=== PATIENT | female | born 1980 | race Caucasian/White ===

== ENCOUNTER 2024-03-13 14:27 | Emergency (ER) | payer BC, SELFPAY ==
[2024-03-13 14:30] VITALS: BP 165/92; PULSE 77; RESP 16; TEMP 36.6; O2SAT 100
[2024-03-13] MEDS: SODIUM CHLORIDE 0.9% IV 500 ML 999 ML IV CONT (15:45)
[2024-03-13] MEDS: diphenhydrAMINE HCl INJ 50 MG/ML VIAL 25 MG IV PUSH (15:45)
[2024-03-13] MEDS: HYDROmorphone HCL INJ (*CRX) 1 MG/ML SYR 0.5 MG IV PUSH ×2 (15:45→16:43)
[2024-03-13] MEDS: PROCHLORPERAZINE EDISYLATE 10 MG/2 ML VIAL IV PUSH (15:46)
[2024-03-13] MEDS: Please add drug allergy info to patient profile. 1 EACH XX (15:46)
--- NOTE | 2024-03-13 15:52 | ED_ITS ---
HPI - General Adult General Chief complaint: Headache Stated complaint: migraine Time Seen by Provider: 03/13/24 14:34 History of Present Illness HPI narrative: 43-year-old female presenting to the emergency department for evaluation for headache. Patient reports she does have a longstanding history of migraines. Patient also has history of liver transplant and kidney transplant x2. Patient states that her medications do tend to cause her to have a migraine. Patient reports her headache started yesterday. Patient states this is similar to her previous headaches. Patient does report associated nausea and vision changes Related Data Allergies Allergy/AdvReac Type Severity Reaction Status Date / Time No Known Allergies Allergy Verified 03/13/24 15:45 Review of Systems Review of Systems: All systems reviewed & are unremarkable except as noted in HPI and below Exam Narrative: APPEARANCE: Well appearing, no pain, no distress, well-nourished. HEAD: normocephalic, atraumatic. EYES: PERRLA/EOMI, conjunctivae clear. NOSE: Normal no drainage EARS:TMS clear with good light reflex. THROAT: Pharynx clear, no exudate. NECK: Supple. No adenopathy, no masses. RESPIRATORY: Airway patent, respirations nonlabored. Clear to auscultation bilaterally, no rales, rhonchi, wheezing. CARDIOVASCULAR: Regular rate and rhythm without murmurs rubs or gallops. ABDOMINAL: Soft, nontender, nondistended, normal bowel sounds MUSCULOSKELETAL: Moves all extremities. Strength/ROM intact, No edema, No calf tenderness. NEURO: Alert. Cranial nerves II through XII intact. Grossly intact SKIN: Warm, dry. Normal Color Course Vital Signs Vital signs: Vital Signs Temperature 97.8 F 03/13/24 14:30 Pulse Rate 77 03/13/24 14:30 Respiratory Rate 16 03/13/24 14:30 Blood Pressure 165/92 H 03/13/24 14:30 Pulse Oximetry 100 03/13/24 14:30 Oxygen Delivery Room Air 03/13/24 14:30 Temperature 97.8 F 03/13/24 14:30 Pulse Rate 75 03/13/24 17:11 Respiratory Rate 20 03/13/24 17:11 Blood Pressure 147/85 H 03/13/24 17:11 Pulse Oximetry 96 03/13/24 17:11 Oxygen Delivery Room Air 03/13/24 14:30 Medical Decision Making MDM Narrative Medical decision making narrative: 43-year-old female presenting to the emergency department for evaluation for migraine. Patient stated that the current migraine is similar to her baseline with no significant differences. Patient denies any falls or injuries, patient denies any fevers. Patient was treated with IV Reglan, IV Benadryl, IV fluids and IV Dilaudid, patient states she is unable to have Toradol due to her transplants. On re-evaluation patient did feel improved. Patient was encouraged close follow-up with her physicians. All questions concerns were addressed. Differential Diagnosis Differential Diagnosis: Migraine, headache, dehydration Vital Signs Vital Signs: Vital Signs Temperature 97.8 F 03/13/24 14:30 Pulse Rate 77 03/13/24 14:30 Respiratory Rate 16 03/13/24 14:30 Blood Pressure 165/92 H 03/13/24 14:30 Pulse Oximetry 100 03/13/24 14:30 Oxygen Delivery Room Air 03/13/24 14:30 Temperature 97.8 F 03/13/24 14:30 Pulse Rate 75 03/13/24 17:11 Respiratory Rate 20 03/13/24 17:11 Blood Pressure 147/85 H 03/13/24 17:11 Pulse Oximetry 96 03/13/24 17:11 Oxygen Delivery Room Air 03/13/24 14:30 Discharge Plan Discharge Clinical Impression: Headache Patient Disposition: Home, Self-Care Condition: Stable Instructions: Antibiotic Form, Migraine Headache (ED) Additional Instructions: Have close follow-up with your primary care physician. If you have any worsening symptoms and please call or return to the emergency department. Patient Language: [place] Follow-up/Referrals: UNKNOWN,DOCTOR [Primary Care Provider] -
[2024-03-13 17:11] VITALS: BP 147/85; PULSE 75; RESP 20; O2SAT 96
--- OUTSIDE RECORDS SUMMARY | 2024-03-20 11:32 | XMS_ITS | Continuity of Care Document ---
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 Role Phone Hermes Ramirez Primary Care Physician Encounter ONOFREEver [id number] Date(s): 03/19/21 - 03/19/[address] [id number] Encounter Diagnosis Migraine headache(Discharge Diagnosis) - 03/19/21 Discharge Disposition: Home or Self Care Attending Physician: Zack Byrnes MD Admitting Physician: Zack Byrnes MD Allergies, Adverse Reactions, Alerts Substance Reaction Severity Status gentamicin Moderate Active erythromycin Medication interaction Activ e aspirin Medication interaction Activ e Toradol Kidney failure as a complication of care Active NSAIDs Severe Active Assessment and Plan Future Appointments Immunizations Given and Recorded Vaccine Date Status Refusal Reason hepatitis B adult vaccine 11/10/17 Recorded hepatitis B adult vaccine 10/09/17 Recorded hepatitis A adult vaccine 10/09/17 Recorded tetanus/diphth/pertuss (Tdap) adult/adol 05/10/17 Recorded tetanus/diphth/pertuss (Tdap) adult/adol 03/20/17 Recorded tetanus/diphth/pertuss (Tdap) adult/adol 05/25/12 Recorded Medications amLODIPine 10 mg oral tablet TAKE ONE TABLET DAILY Start Date: 12/18/20 Status: Ordered butalbital/acetaminophen/caffeine 50 mg-325 mg-40 mg oral tablet 1 tab, Oral, every 4 hr, 0 Refill(s) Start Date: 08/18/20 Status: Ordered CellCept 500 mg =, Oral, BID, 0 Refill(s) Start Date: 07/01/20 Status: Ordered gabapentin 300 mg oral capsule TAKE ONE CAPSULE AT BEDTIME Start Date: 12/18/20 Status: Ordered LORazepam 0.5 mg oral tablet TAKE ONE TABLET BY MOUTH DAILY NEEDED FOR ANXIETY Start Date: 12/18/20 Status: Ordered Metoprolol Tartrate 25 mg oral tablet 25 mg = 1 tab, Oral, BID, # 180 tab, 3 Refill(s), Pharmacy: [place], [place], 157, cm, 10/22/20 21:26:00 CDT, Height/Length Dosing, 74, kg, 10/22/20 21:26:00 CDT, Weight Dosing Start Date: 12/18/20 Status: Ordered Pepcid 20 mg oral tablet 20 mg = 1 tab, Oral, BID, 0 Refill(s) Start Date: 09/29/20 Status: Ordered Retin-A 0.05% topical cream 1 sanjiv, Topical, every day at bedtime, # 45 g, 2 Refill(s), Pharmacy: [place], [place], 157.[address], cm, 08/18/20 12:26:00 CDT, Height/Length Dosing, 72.57, kg, 08/18/20 12:26:00 CDT, Weight Dosing Start Date: 09/04/20 Status: Ordered tacrolimus 1 mg oral capsule, extended release 1 mg = 1 cap, Oral, Daily, 0 Refill(s) Start Date: 09/29/20 Status: Ordered ZyPREXA 2.5 mg oral tablet 2.5 mg = 1 tab, Oral, Daily, 0 Refill(s) Start Date: 09/29/20 Status: Ordered Problem List Condition Effective Dates Status Health Status Inform ant Abdominal pain in female(Confirmed) Active Acne(Confirmed) Active Acute urinary tract infection(Confirmed) Active Anxiety(Confirmed) Active Chronic pain(Confirmed) Active Chronic pain(Confirmed) Active Congenital biliary atresia(Confirmed) Active Bilateral conjunctivitis(Confirmed) Active Conjunctivitis, left eye(Confirmed) Active Constipation(Confirmed) Active Acute dehydration(Confirmed) Active Difficulty sleeping(Confirmed) Active Disease caused by 2019 novel coronavirus(Confirmed) 1 01/25/21 Active Gout(Confirmed) Active History of liver transplant(Confirmed) Active Hx of migraine headaches(Confirmed) Active Heart murmur(Confirmed) Active History of kidney transplant(Confirmed) Active Idiopathic thrombocytopenic purpura(Confirmed) Active Liver transplant disorder(Confirmed) Active Lumbar back pain(Confirmed) Active Migraine(Confirmed) Active Migraine headache(Confirmed) Active Otitis externa of right ear(Confirmed) Active Numbness and tingling of rig ht arm(Confirmed) Active Thrombocytopenia(Confirmed) Active Sprain of knee(Confirmed) Active Tachycardia(Confirmed) Active Tobacco use(Confirmed) Active 1Problem added by Rule (IC_COVID19_AUTO_PROBLEM) following SARS-CoV or CoV-2 (COVID-19) Antigen (Binax) POCT from Oropharyngeal Swab collected on 25-JAN-2021 10:43:00 [employer] tested positive for COVID-19. Procedures Procedure Date Related Diagnosis Body Site Status Bladder washout 12/14/20 Completed Kidney transplant 05/13/20 Complet ed Tx - Liver transplantation 05/08/20 Completed delivery Complet ed cyst removal from breast Completed Hernia Completed liver transplant Complete d Vital Signs Most recent to oldest [Reference Range]: 1 2 Temperature Oral [35.8-37.3 Deg C] 37.2 Deg C (03/19/21 3:09 PM) Peripheral Pulse Rate [60-100 bpm] 99 bp m (03/19/21 4:32 PM) 95 bpm (03/19/21 3:09 PM) Respiratory Rate [12-24 br/min] 18 br/mi n (03/19/21 4:32 PM) 16 br/min (03/19/21 3:09 PM) Blood Pressure [90-140/60-90 mmHg] 140/9 0mmHg (03/19/21 4:32 PM) 150/86mmHg *HI* (03/19/21 3:09 PM) Weight 77.00 kg (03/19/21 3:09 PM) Weight Dosing 77.00 kg (03/19/21 3:13 PM) Height 157.000 cm (03/19/21 3:09 PM) Height/Length Dosing 157.000 cm (03/19/21 3:13 PM) Body Mass Index Estimated 31 (03/19/21 3:09 PM) Social History Social History Type Response Smoking Status 5-9 cigarettes (betw een 1/4 to 1/2 pack)/day in last 30 days entered on: 08/18/20 Sex Hospital Discharge Instructions Patient Education 03/19/2021 15:26:45 Migraine Headache Migraine Headache A migraine headache is an intense, throbbing pain on one side or both sides of the head. Migraine headaches may also cause other symptoms, such as nausea, vomiting, and sensitivity to light and noise. A migraine headache can last from 4 hours to 3 days. Talk with your doctor about what things may bring on (trigger) your migraine headaches. What are the causes? The exact cause of this condition is not known. However, a migraine may be caused when nerves in the brain become irritated and release chemicals that cause inflammation of blood vessels. This inflammation causes pain. This condition may be triggered or caused by: ??? Drinking alcohol. ??? Smoking. ??? Taking medicines, such as: ??? Medicine used to treat chest pain (nitroglycerin). ??? control pills. ??? Estrogen. ??? Certain blood pressure medicines. ??? Eating or drinking products that contain nitrates, glutamate, aspartame, or tyramine. Aged cheeses, chocolate, or caffeine may also be triggers. ??? Doing physical activity. Other things that may trigger a migraine headache include: ??? Menstruation. ??? . ??? Hunger. ??? Stress. ??? Lack of sleep or too much sleep. ??? Weather changes. ??? Fatigue. What increases the risk? The following factors may make you more likely to experience migraine headaches: ??? Being a certain age. This condition is more common in people who are 25???55 years old. ??? Being female. ??? Having a family history of migraine headaches. ??? Being . ??? Having a mental health condition, such as depression or anxiety. ??? Being obese. What are the signs or symptoms? The main symptom of this condition is pulsating or throbbing pain. This pain may: ??? Happen in any area of the head, such as on one side or both sides. ??? Interfere with daily activities. ??? Get worse with physical activity. ??? Get worse with exposure to bright lights or loud noises. Other symptoms may include: ??? Nausea. ??? Vomiting. ??? Dizziness. ??? General sensitivity to bright lights, loud noises, or smells. Before you get a migraine headache, you may get warning signs (an aura). An aura may include: ??? Seeing flashing lights or having blind spots. ??? Seeing bright spots, halos, or zigzag lines. ??? Having tunnel vision or blurred vision. ??? Having numbness or a tingling feeling. ??? Having trouble talking. ??? Having muscle weakness. Some people have symptoms after a migraine headache (postdromal phase), such as: ??? Feeling tired. ??? Difficulty concentrating. How is this diagnosed? A migraine headache can be diagnosed based on: ??? Your symptoms. ??? A physical exam. ??? Tests, such as: ??? CT scan or an MRI of the head. These imaging tests can help rule out other causes of headaches. ??? Taking fluid from the spine (lumbar puncture) and analyzing it (cerebrospinal fluid analysis, or CSF analysis). How is this treated? This condition may be treated with medicines that: ??? Relieve pain. ??? Relieve nausea. ??? Prevent migraine headaches. Treatment for this condition may also include: ??? Acupuncture. ??? Lifestyle changes like avoiding foods that trigger migraine headaches. ??? Biofeedback. ??? Cognitive behavioral therapy. Follow these instructions at home: Medicines ??? Take [id number] and prescription medicines only as told by your health care provider. ??? Ask your health care provider if the medicine prescribed to you: ??? Requires you to avoid driving or using heavy machinery. ??? Can cause constipation. You may need to take these actions to prevent or treat constipation: ??? Drink enough fluid to keep your urine pale yellow. ??? Take [id number] or prescription medicines. ??? Eat foods that are high in fiber, such as beans, whole grains, and fresh fruits and vegetables. ??? Limit foods that are high in fat and processed sugars, such as fried or sweet foods. Lifestyle ??? Do not drink alcohol. ??? Do not use any products that contain nicotine or tobacco, such as cigarettes, e-cigarettes, andchewing tobacco. If you need help quitting, ask your health care provider. ??? Get at least 8 hours of sleep every night. ??? Find ways to manage stress, such as meditation, deep breathing, or yoga. General instructions ??? Keep a journal to find out what may trigger your migraine headaches. For example, write down: ??? What you eat and drink. ??? How much sleep you get. ??? Any change to your diet or medicines. ??? If you have a migraine headache: ??? Avoid things that make your symptoms worse, such as bright lights. ??? It may help to lie down in a dark, quiet room. ??? Do not drive or use heavy machinery. ??? Ask your health care provider what activities are safe for you while you are experiencing symptoms. ??? Keep all follow-up visits as told by your health care provider. This is important. Contact a health care provider if: ??? You develop symptoms that are different or more severe than your usual migraine headache symptoms. ??? You have more than 15 headache days in one month. Get help right away if: ??? Your migraine headache becomes severe. ??? Your migraine headache lasts longer than 72 hours. ??? You have a fever. ??? You have a stiff neck. ??? You have vision loss. ??? Your muscles feel weak or like you cannot control them. ??? You start to lose your balance often. ??? You have trouble walking. ??? You faint. ??? You have a seizure. Summary ??? A migraine headache is an intense, throbbing pain on one side or both sides of the head. Migraines may also cause other symptoms, such as nausea, vomiting, and sensitivity to light and noise. ??? This condition may be treated with medicines and lifestyle changes. You may also need to avoid certain things that trigger a migraine headache. ??? Keep a journal to find out what may trigger your migraine headaches. ??? Contact your health care provider if you have more than 15 headache days in a month or you develop symptoms that are different or more severe than your usual migraine headache symptoms. This information is not intended to replace advice given to you by your health care provider. Make sure you discuss any questions you have with your health care provider. Document Revised: 06/28/2019 Document Reviewed: 04/18/2019 [employer] Patient Education ?? 2020 [employer] Follow Up Care 03/19/2021 15:09:27 With:Hermes Ramirez MD Address: [address] [place] [address], [address] [place] [id number]- When:1 week
--- OUTSIDE RECORDS SUMMARY | 2024-03-20 11:32 | XMS_ITS | Continuity of Care Document ---
Author Organization [facility] Address [address] [place] [address] Care Team Providers Care Process Validation Engineer Name Role Phone Hermes Ramirez Primary Care Physician [phone] Encounter [place] Date(s): 05/25/23 - 05/26/[address] [address] Encounter Diagnosis RSV infection(Discharge Diagnosis) - 05/25/23 Acute dehydration(Discharge Diagnosis) - 05/25/23 Sinus tachycardia(Discharge Diagnosis) - 05/25/23 Acute migraine(Discharge Diagnosis) - 05/25/23 Tobacco abuse(Discharge Diagnosis) - 05/25/23 Acute URI(Discharge Diagnosis) - 05/26/23 Discharge Disposition: Home or Self Care Attending Physician: Percy Salazar MD Admitting Physician: Percy Salazar MD Allergies, Adverse Reactions, Alerts Substance Reaction Severity Status codeine Unknown Itching Severe Active gentamicin Moderate Active erythromycin Medication interaction Activ e azithromycin Unknown Severe Active aspirin Medication interaction Severe Activ e morphine 1 redness Itching Mild Active Toradol Kidney failure as a complication of care Severe Active NSAIDs Severe Active 1localized reaction at iv site Assessment and Plan Future Appointments Diagnostic Tests Pending * Blood Culture 05/25/23 * Blood Culture 05/25/23 Future Scheduled Tests Laboratory* Urinalysis with Microscopic 10/31/22 * Urine Culture 04/06/23 * Urine Culture 10/31/22 Radiology* XR Shoulder Complete 2+ Views Right 07/04/22 * MG Mammo Diagnostic Bilateral w/ Chad 08/24/23 * US Breast Limited Left 08/24/23 Immunizations Given and Recorded Vaccine Date Status Refusal Reason tetanus/diphth/pertuss (Tdap) adult/adol 10/18/21 Given tetanus/diphth/pertuss (Tdap) adult/adol 05/10/17 Recorded tetanus/diphth/pertuss (Tdap) adult/adol 03/20/17 Recorded tetanus/diphth/pertuss (Tdap) adult/adol 05/25/12 Recorded hepatitis B adult vaccine 11/10/17 Recorded hepatitis B adult vaccine 10/09/17 Recorded hepatitis A adult vaccine 10/09/17 Recorded Medications Albuterol (Eqv-Ventolin HFA) 90 mcg/inh inhalation aerosol 2 puffs, Inhale, every 6 hr, PRN shortness of breath, X 7 days, # 6.7 g, 0 Refill(s), 05/30/23 5:53:00 PM CDT, Pharmacy: [id number], 157, cm, 04/29/23 2:33:00 NURSERY MANAGER, Height, 81, kg, 04/29/23 2:41:00 NURSERY MANAGER, Weight Dosing Start Date: 05/23/23 Stop Date: 05/30/23 Status: Ordered amLODIPine 5 mg oral tablet 5 mg = 1 tab, Oral, Daily, # 30 tab, 11 Refill(s), Pharmacy: [place], [place], 157.48, cm, 01/04/23 15:03:00 CDT, Height/Length Dosing, 81.65, kg, 01/04/23 15:03:00 CDT, Weight Dosing Start Date: 01/11/23 Status: Ordered aspirin 81 mg oral delayed release tablet 81 mg = 1 tab, Oral, Daily, # 30 tab, 0 Refill(s) Start Date: 04/05/21 Status: Ordered gabapentin 300 mg oral capsule TAKE ONE CAPSULE AT BEDTIME Start Date: 12/18/20 Status: Ordered Gengraf 25 mg oral capsule 0 Refill(s) Start Date: 01/02/23 Status: Ordered levothyroxine 75 mcg (0.075 mg) oral tablet 0 Refill(s) Start Date: 01/02/23 Status: Ordered LORazepam 0.5 mg oral tablet TAKE ONE TABLET BY MOUTH DAILY NEEDED FOR ANXIETY Start Date: 12/18/20 Status: Ordered metoprolol succinate 100 mg oral capsule, extended release 100 mg = 1 cap, Oral, BID, # 60 cap, 11 Refill(s), Pharmacy: [place], [place], 157.48, cm, 01/04/23 15:03:00 CDT, Height/Length Dosing, 81.65, kg, 01/04/23 15:03:00 CDT, Weight Dosing Start Date: 01/11/23 Status: Ordered mycophenolate mofetil 250 mg oral capsule 0 Refill(s) Start Date: 01/02/23 Status: Ordered Pepcid 20 mg oral tablet 20 mg = 1 tab, Oral, BID, 0 Refill(s) Start Date: 09/29/20 Status: Ordered Protonix 40 mg oral delayed release tablet 40 mg = 1 tab, Oral, Daily, X 30 days, # 30 tab, 0 Refill(s), 06/02/23 5:10:00 AM CDT, Pharmacy: [facility], 157, cm, 04/29/23 2:33:00 NURSERY MANAGER, Height, 81, kg, 04/29/23 2:41:00 NURSERY MANAGER, Weight Dosing Start Date: 05/03/23 Stop Date: 06/02/23 Status: Ordered venlafaxine 37.5 mg oral capsule, extended release 37.5 mg = 1 cap, Oral, Daily, # 30 cap, 0 Refill(s) Start Date: 10/13/21 Status: Ordered Problem List Condition Confirmation Course Effective Dates Status H ealth Status Informant Acne Confirmed Active Anxiety Confirmed Active Breast lump on left side at 3 o'clock position Confirmed Active Right-sided chest wall pain Confirmed Active Chronic back pain Confirmed Active Headache, chronic migraine without aura, intractable Confirmed Active Chronic neck pain Confirmed Active Chronic pain Confirmed Active Chronic pain Confirmed Active Congenital biliary atresia Confirmed Active Constipation Confirmed Active Degenerative disc disease, cervical Confirmed Active Difficulty sleeping Confirmed Active Gout Confirmed Active History of liver transplant Confirmed Active Hx of migraine headaches Confirmed Active Heart murmur Confirmed Active History of burning pain in leg Confirmed Active History of kidney transplant Confirmed Active Idiopathic thrombocytopenic purpura Confirmed Active Lumbar back pain Confirmed Active Migraine headache Confirmed Active Headache, chronic migraine without aura Confirmed Active Migraine headache Confirmed Active Pain, joint, multiple sites Confirmed Active Nausea Confirmed Active Cervicalgia Confirmed Active Obesity Confirmed Active Pain of right scapula Confirmed Active Numbness and tingling of right arm Confirmed Active Chronic paronychia of finger Confirmed Active Thrombocytopenia Confirmed Active Headache, migraine, intractable Confirmed Active Right shoulder pain Confirmed Active 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 Foraminal stenosis of cervical region Confirmed Active Edema Confirmed Active Tachycardia Confirmed Active Tobacco use Confirmed Active UTI (urinary tract infection) Confirmed Active Weight gain Confirmed Active 1had skin tag in groin removed that had this cancer Procedures Procedure Date Related Diagnosis Body Site Status Screening Pap Smear; Allison ramirez, Preparing And Conveyance Of Cervical/Vaginal Smear To Laboratory 1 07/2022 Completed Examining eye 2021 Completed Bladder washout 12/14/20 Completed Kidney transplant 05/13/20 Complet ed Tx - Liver transplantation 05/08/20 Completed Mammogram 2 2020 Completed delivery Complet ed cyst removal from breast Completed Hernia Completed liver transplant Complete d 1normal 2normal Results Laboratory List Name Date Urinalysis with Culture if Indicated 05/24 .Urine Volume 05/25/23 Urinalysis Microscopic 05/25/23 BNP 05/25/23 C-Reactive Protein 05/25/23 CBC w/ Diff 05/25/23 Cardiac Profile HS 05/25/23 Comprehensive Metabolic Panel 05/25/23 Automated Diff 05/25/23 Most recent to oldest [Reference Range]: 1 WBC [4.0-11.5 K/mcL] 6.2 K/mcL (05/25/23 10:25 PM) RBC [4.20-5.40 x10^6/mcL] 3.95 x10^6/mcL *LOW* (05/25/23 10:25 PM) Neutro Auto 80.5 % *NA* (05/25/23 10:25 PM) Lymph Auto 10.3 % *NA* (05/25/23 10:25 PM) [place] Auto 7.4 % *NA* (05/25/23 10:25 PM) Basophil Auto 0.2 % *NA* (05/25/23 10:25 PM) BUN [7-18 mg/dL] 21 mg/dL *HI* (05/25/23 10:25 PM) UA Color Yellow (05/25/23 10:35 PM) UA WBC [0-5] 0-5 (05/25/23 10:35 PM) Glucose Level [70-110 mg/dL] 108 mg/dL (05/25/23 10:25 PM) Potassium Level [3.5-5.1 mmol/L] 3.1 mmo l/L *LOW* (05/25/23 10:25 PM) Baso Absolute [0.0-0.1 x10^3/mcL] 0.0 x1 0^3/mcL (05/25/23 10:25 PM) MCV [78.0-100.0 fL] 100.8 fL *HI* (05/25/23 10:25 PM) UA Urobilinogen [Normal mg/dL] Normal mg /dL (05/25/23 10:35 PM) UA Bili [Negative mg/dL] Negative mg/dL (05/25/23 10:35 PM) CRP [0.0-3.0 mg/L] 114.4 mg/L *HI* (05/25/23 10:25 PM) UA Ketones [Negative mg/dL] Negative mg/ dL (05/25/23 10:35 PM) AST [15-37 unit/L] 72 unit/L *HI* (05/25/23 10:25 PM) ALT [12-78 unit/L] 115 unit/L *HI* (05/25/23 10:25 PM) MCHC [29.0-37.5 g/dL] 33.7 g/dL (05/25/23 10:25 PM) Sodium Level [136-145 mmol/L] 143 mmol/L (05/25/23 10:25 PM) UA RBC [0-3] 0-3 (05/25/23 10:35 PM) UA Leuk Est [Negative Guille/mcL] Negative Guille/mcL (05/25/23 10:35 PM) Lymph Absolute [0.8-5.8 x10^3/mcL] 0.6 x 10^3/mcL *LOW* (05/25/23 10:25 PM) UA Nitrite [Negative] Negative (05/25/23 10:35 PM) UA Glucose [Normal mg/dL] Normal mg/dL (05/25/23 10:35 PM) Hct [36.0-48.0 %] 39.8 % (05/25/23 10:25 PM) UA Bacteria [None Seen] Occasional *ABN* (05/25/23 10:35 PM) Calcium Level [8.5-10.1 mg/dL] 8.7 mg/dL (05/25/23 10:25 PM) [place] Absolute [0.1-1.5 x10^3/mcL] 0.5 x1 0^3/mcL (05/25/23 10:25 PM) Albumin Level [3.4-5.0 g/dL] 3.1 g/dL *LOW* (05/25/23 10:25 PM) Protein Total [6.4-8.2 g/dL] 7.0 g/dL (05/25/23 10:25 PM) UA Protein [Negative mg/dL] Negative mg/ dL (05/25/23 10:35 PM) MCH [27.0-34.0 pg] 33.9 pg (05/25/23 10:25 PM) Neutro Absolute [1.5-8.1 x10^3/mcL] 5.0 x10^3/mcL (05/25/23 10:25 PM) Bilirubin Total [0.0-1.0 mg/dL] 1.1 mg/d L *HI* (05/25/23 10:25 PM) Hgb [12.0-16.0 g/dL] 13.4 g/dL (05/25/23 10:25 PM) Alk Phos [46-130 unit/L] 372 unit/L *HI* (05/25/23 10:25 PM) UA Blood [Negative Rocael/mcL] Negative Rocael /mcL (05/25/23 10:35 PM) MPV [6.0-10.0 fL] 11.1 fL *HI* (05/25/23 10:25 PM) UA Mucous [None Seen] None Seen (05/25/23 10:35 PM) UA Spec Grav 1.020 (05/25/23 10:35 PM) Platelets [150-450 K/mcL] 102 K/mcL *LOW* (05/25/23 10:25 PM) CO2 [21-32 mmol/L] 21 mmol/L (05/25/23 10:25 PM) Eos Absolute [0.0-0.5 x10^3/mcL] 0.1 x10 ^3/mcL (05/25/23 10:25 PM) UA Squam Epithelial [None Seen] Many *ABN* (05/25/23 10:35 PM) UA pH [5.0-9.0] 5.0 (05/25/23 10:35 PM) eGFR Non-AA 35 *NA* (05/25/23 10:25 PM) eGFR AA 42 *NA* (05/25/23 10:25 PM) BNP [5-100 pg/mL] 29 pg/mL (05/25/23 10:25 PM) UA Appear [Clear] Slightly Hazy (05/25/23 10:35 PM) Chloride Level [97-107 mmol/L] 106 mmol/ L (05/25/23 10:25 PM) RDW-CV [11.5-15.0 %] 13.2 % (05/25/23 10:25 PM) Imm Gran Absolute [0.0-0.1 x10^3/mcL] 0. 0 x10^3/mcL (05/25/23 10:25 PM) Imm Gran Auto 0.3 % *NA* (05/25/23 10:25 PM) NRBC Auto 0.0 % *NA* (05/25/23 10:25 PM) NRBC Absolute [0.0-0.0 x10^3/mcL] 0.0 x1 0^3/mcL (05/25/23 10:25 PM) Slide Review Not Indicated (05/25/23 10:25 PM) UA Culture Ind?. Not Indicated (05/25/23 10:35 PM) Urine Srce Clean Catch (05/25/23 10:35 PM) Urine Volume 12 mL (05/25/23 10:35 PM) Creatinine Level [0.60-1.30 mg/dL] 1.72 mg/dL 1 *HI* (05/25/23 10:25 PM) Troponin-I HS [0-51 ng/L] 9 ng/L (05/25/23 10:25 PM) Anion Gap [5-15 mmol/L] 19 mmol/L *HI* (05/25/23 10:25 PM) Eos, Auto 1.3 % *NA* (05/25/23 10:25 PM) UA Yeast [None Seen] None Seen (05/25/23 10:35 PM) CK [21-232 unit/L] 68 unit/L (05/25/23 10:25 PM) 1Interpretive Data: Association of GFR and staging of kidney disease GFR With Kidney Damage Without Kidney Damage >=90 Stage 1 Normal 60-89 Stage 2 Decreased GFR 30-59 Stage 3 Stage 3 15-29 Stage 4 Stage 4 <15 or Stage 5 Stage 5 dialysis EGFR values not applicable for pediatric patients nor in those >70 years of age. Vital Signs Most recent to oldest [Reference Range]: 1 2 3 Temperature Oral [35.8-37.3 Deg C] 36.8 Deg C (05/25/23 10:01 PM) 36.9 Deg C (05/25/23 9:10 PM) Peripheral Pulse Rate [60-100 bpm] 122 bpm *HI* (05/25/23 11:05 PM) Heart Rate Monitored [60-100 bpm] 118 bpm *HI* (05/26/23 12:00 AM) 128 bpm *HI* (05/25/23 10:01 PM) 144 bpm *HI* (05/25/23 9:10 PM) Respiratory Rate [12-24 br/min] 18 br/min (05/26/23 12:00 AM) 18 br/min (05/25/23 11:05 PM) 18 br/min (05/25/23 10:01 PM) Blood Pressure [90-140/60-90 mmHg] 130/84mmHg (05/26/23 12:00 AM) 137/86mmHg (05/25/23 11:05 PM) 156/89mmHg *HI* (05/25/23 10:01 PM) Mean Arterial Pressure, Cuff [65-140 mmHg] 110 mmHg (05/25/23 9:10 PM) Weight Estimated 81.65 kg (05/25/23 9:10 PM) Body Mass Index Estimated 33.13 kg/m2 (05/25/23 9:10 PM) Height/Length Estimated 157 cm (05/25/23 9:10 PM) Social History Social History Type Response Tobacco Current everyday tob acco user Tobacco Use:. 1 Sex 1Pt states that she smokes half a pack a day. Hospital Discharge Instructions Patient Education 05/26/2023 00:05:44 Upper Respiratory Infection, Adult, Pvqi-re-Whms Upper Respiratory Infection, Adult An upper respiratory infection (URI) affects the nose, throat, and upper airways that lead to the lungs. The most common type of URI is often called the common cold. URIs usually get better on their own, without medical treatment. What are the causes? A URI is caused by a germ (virus). You may catch these germs by: ??? Breathing in droplets from an infected person's cough or sneeze. ??? Touching something that has the germ on it (is contaminated) and then touching your mouth, nose, or eyes. What increases the risk? You are more likely to get a URI if: ??? You are very young or very old. ??? You have close contact with others, such as at work, school, or a health care facility. ??? You smoke. ??? You have long-term (chronic) heart or lung disease. ??? You have a weakened disease-fighting system (immune system). ??? You have nasal allergies or asthma. ??? You have a lot of stress. ??? You have poor nutrition. What are the signs or symptoms? Runny or stuffy (congested) nose. ??? Cough. ??? Sneezing. ??? Sore throat. ??? Headache. ??? Feeling tired (fatigue). ??? Fever. ??? Not wanting to eat as much as usual. ??? Pain in your forehead, behind your eyes, and over your cheekbones (sinus pain). ??? Muscle aches. ??? Redness or irritation of the eyes. ??? Pressure in the ears or face. How is this treated? URIs usually get better on their own within 7???10 days. Medicines cannot cure URIs, but your doctor may recommend certain medicines to help relieve symptoms, such as: ??? Gqyl-itv-akqmfnm cold medicines. ??? Medicines to reduce coughing (cough suppressants). Coughing is a type of defense against infection that helps to clear the nose, throat, windpipe, and lungs (respiratory system). Take these medicines only as told by your doctor. ??? Medicines to lower your fever. Follow these instructions at home: Activity ??? Rest as needed. ??? If you have a fever, stay home from work or school until your fever is gone, or until your doctor says you may return to work or school. ??? You should stay home until you cannot spread the infection anymore (you are not contagious). ??? Your doctor may have you wear a face mask so you have less risk of spreading the infection. Relieving symptoms ??? Rinse your mouth often with salt water. To make salt water, dissolve ?1 tsp (3???6 g) of salt in 1 cup (237 mL) of warm water. ??? Use a cool-mist humidifier to add moisture to the air. This can help you breathe more easily. Eating and drinking ??? Drink enough fluid to keep your pee (urine) pale yellow. ??? Eat soups and other clear broths. General instructions ??? Take otch-yee-ssygddx and prescription medicines only as told by your doctor. ??? Do not smoke or use any products that contain nicotine or tobacco. If you need help quitting, ask your doctor. ??? Avoid being where people are smoking (avoid secondhand smoke). ??? Stay up to date on all your shots (immunizations), and get the flu shot every year. ??? Keep all follow-up visits. How to prevent the spread of infection to others ??? Wash your hands with soap and water for at least 20 seconds. If you cannot use soap and water, use hand hvac r tech. ??? Avoid touching your mouth, face, eyes, or nose. ??? Cough or sneeze into a tissue or your sleeve or elbow. Do not cough or sneeze into your hand orinto the air. Contact a doctor if: ??? You are getting worse, not better. ??? You have any of these: ??? A fever or chills. ??? Brown or red mucus in your nose. ??? Yellow or brown fluid (discharge)coming from your nose. ??? Pain in your face, especially when you bend forward. ??? Swollen neck glands. ??? Pain when you swallow. ??? White areas in the back of your throat. Get help right away if: ??? You have shortness of breath that gets worse. ??? You have very bad or constant: ??? Headache. ??? Ear pain. ??? Pain in your forehead, behind your eyes, and over your cheekbones (sinus pain). ??? Chest pain. ??? You have long-lasting (chronic) lung disease along with any of these: ??? Making high-pitched whistling sounds when you breathe, most often when you breathe out (wheezing). ??? Long-lasting cough (more than 14 days). ??? Coughing up blood. ??? A change in your usual mucus. ??? You have a stiff neck. ??? You have changes in your: ??? Vision. ??? Hearing. ??? Thinking. ??? Mood. These symptoms may be an emergency. Get help right away. Call 911. ??? Do not wait to see if the symptoms will go away. ??? Do not drive yourself to the hospital. Summary ??? An upper respiratory infection (URI) is caused by a germ (virus). The most common type of URI is often called the common cold. ??? URIs usually get better within 7???10 days. ??? Take cyev-gqi-wrlcovp and prescription medicines only as told by your doctor. This information is not intended to replace advice given to you by your health care provider. Make sure you discuss any questions you have with your health care provider. Document Revised: 10/06/2021 Document Reviewed: 10/06/2021 [employer] Patient Education ?? 2022 [email or web address]. 05/26/2023 00:02:37 Migraine Headache, Ugch-ho-Rezc Migraine Headache A migraine headache is a very strong throbbing pain on one side or both sides of your head. This type of headache can also cause other symptoms. It can last from 4 hours to 3 days. Talk with your doctor about what things may bring on (trigger) this condition. What are the causes? The exact cause of this condition is not known. This condition may be triggered or caused by: ??? Drinking alcohol. ??? Smoking. ??? Taking medicines, such as: ??? Medicine used to treat chest pain (nitroglycerin). ??? control pills. ??? Estrogen. ??? Some blood pressure medicines. ??? Eating or drinking certain products. ??? Doing physical activity. Other things that may trigger a migraine headache include: ??? Having a menstrual period. ??? . ??? Hunger. ??? Stress. ??? Not getting enough sleep or getting too much sleep. ??? Weather changes. ??? Tiredness (fatigue). What increases the risk? Being 25???55 years old. ??? Being female. ??? Having a family history of migraine headaches. ??? Being . ??? Having depression or anxiety. ??? Being very overweight. What are the signs or symptoms? A throbbing pain. This pain may: ??? Happen in any area of the head, such as on one side or both sides. ??? Make it hard to do daily activities. ??? Get worse with physical activity. ??? Get worse around bright lights or loud noises. ??? Other symptoms may include: ??? Feeling sick to your stomach (nauseous). ??? Vomiting. ??? Dizziness. ??? Being sensitive to bright lights, loud noises, or smells. ??? Before you get a migraine headache, you may get warning signs (an aura). An aura may include: ??? Seeing flashing lights or having blind spots. ??? Seeing bright spots, halos, or zigzag lines. ??? Having tunnel vision or blurred vision. ??? Having numbness or a tingling feeling. ??? Having trouble talking. ??? Having weak muscles. ??? Some people have symptoms after a migraine headache (postdromal phase), such as: ??? Tiredness. ??? Trouble thinking (concentrating). How is this treated? Taking medicines that: ??? Relieve pain. ??? Relieve the feeling of being sick to your stomach. ??? Prevent migraine headaches. ??? Treatment may also include: ??? Having acupuncture. ??? Avoiding foods that bring on migraine headaches. ??? Learning ways to control your body functions (biofeedback). ??? Therapy to help you know and deal with negative thoughts (cognitive behavioral therapy). Follow these instructions at home: Medicines ??? Take pxde-exm-hxhmvqc and prescription medicines only as told by your doctor. ??? Ask your doctor if the medicine prescribed to you: ??? Requires you to avoid driving or using heavy machinery. ??? Can cause trouble pooping (constipation). You may need to take these steps to prevent or treat trouble pooping: ??? Drink enough fluid to keep your pee (urine) pale yellow. ??? Take grdr-yks-gboebtm or prescription medicines. ??? Eat foods that are high in fiber. These include beans, whole grains, and fresh fruits and vegetables. ??? Limit foods that are high in fat and sugar. These include fried or sweet foods. Lifestyle ??? Do not drink alcohol. ??? Do not use any products that contain nicotine or tobacco, such as cigarettes, e-cigarettes, andchewing tobacco. If you need help quitting, ask your doctor. ??? Get at least 8 hours of sleep every night. ??? Limit and deal with stress. General instructions ??? Keep a journal to find out what may bring on your migraine headaches. For example, write down: ??? What you eat and drink. ??? How much sleep you get. ??? Any change in what you eat or drink. ??? Any change in your medicines. ??? If you have a migraine headache: ??? Avoid things that make your symptoms worse, such as bright lights. ??? It may help to lie down in a dark, quiet room. ??? Do not drive or use heavy machinery. ??? Ask your doctor what activities are safe for you. ??? Keep all follow-up visits as told by your doctor. This is important. Contact a doctor if: ??? You get a migraine headache that is different or worse than others you have had. ??? You have more than 15 headache days in one month. Get help right away if: ??? Your migraine headache gets very bad. ??? Your migraine headache lasts longer than 72 hours. ??? You have a fever. ??? You have a stiff neck. ??? You have trouble seeing. ??? Your muscles feel weak or like you cannot control them. ??? You start to lose your balance a lot. ??? You start to have trouble walking. ??? You pass out (faint). ??? You have a seizure. Summary ??? A migraine headache is a very strong throbbing pain on one side or both sides of your head. These headaches can also cause other symptoms. ??? This condition may be treated with medicines and changes to your lifestyle. ??? Keep a journal to find out what may bring on your migraine headaches. ??? Contact a doctor if you get a migraine headache that is different or worse than others you havehad. ??? Contact your doctor if you have more than 15 headache days in a month. This information is not intended to replace advice given to you by your health care provider. Make sure you discuss any questions you have with your health care provider. Document Revised: 08/18/2022 Document Reviewed: 04/18/2019 [employer] Patient Education ?? 2022 [employer] Follow Up Care 05/25/2023 21:10:08 With:1. Ensure adequate oral hydration 2. Return to hospital if you change your mind about completing your treatment 3. Follow-up with your MD in a.m. Address:Unknown When:1 month Patient Care team information Care Team Personnel Name: Jessee Jones [employer] PHOTOGRAPHER Position: Physician Member Role: Nurse Practitioner Address: Address: [address] [place] [address], [address] Name: Latoya Marquez [employer] PHOTOGRAPHER Position: Physician Member Role: Nurse Practitioner Address: Address: [address] [place] [address]- Name: Leonila Gonzalez [employer] PHOTOGRAPHER Position: Physician Member Role: Nurse Practitioner Address: Address: [address] [place] [address] Name: Beth Brandt [employer] PHOTOGRAPHER Position: Physician Member Role: Nurse Practitioner Address: Address: [address] [place] [address] Name: Hermes Ramirez MD Position: Physician Member Role: Informed Provider Address: Address: [address] [place] [address], [address] [place] [address] Name: Pillo Moe NP Position: Physician Member Role: Nurse Practitioner Address: Address: [address] [place] [address], [address] [facility] Care Team Related Persons Name: STACIA JONES Address: [place] [address] [id number] Name: ROBYN JAMA
--- OUTSIDE RECORDS SUMMARY | 2024-03-20 11:32 | XMS_ITS | Continuity of Care Document ---
Author Organization [facility] Address [address] [place] [address] Care Team Providers Care Last Putter Away Name Role Phone Hermes Ramirez Primary Care Physician Encounter ONOFRE [id number] Date(s): 01/09/23 - 01/09/23 [place] [address] [place] [address]- [place] Discharge Disposition: Home or Self Care Attending Physician: Kris Pruitt MD Admitting Physician: Kris Pruitt MD Allergies, Adverse Reactions, Alerts Substance Reaction Severity Status codeine Unknown Itching Severe Active gentamicin Moderate Active erythromycin Medication interaction Activ e azithromycin Unknown Severe Active aspirin Medication interaction Severe Activ e Toradol Kidney failure as a complication of care Severe Active NSAIDs Severe Active Assessment and Plan Future Appointments Diagnostic Tests Pending * Homocyst(e)ine LC 01/09/23 * Vitamin D, 25-Hydroxy LC 01/09/23 * Estradiol LC 01/09/23 * Estrone, Serum LC 01/09/23 * Testosterone,Free and Total LC 01/09/23 * Miscellaneous Testing LC 01/09/23 Future Scheduled Tests Laboratory* Giardia lamblia Ag, EIA LC 04/07/22 * Cryptosporidium EIA LC 04/07/22 * Stool Culture LC 04/07/22 * Urinalysis with Microscopic 10/31/22 * Urine Culture 10/31/22 * Clostridium difficile Amp 04/07/22 * Ova + Parasite Exam LC 04/07/22 Radiology* XR Shoulder Complete 2+ Views Right 07/04/22 Immunizations Given and Recorded Vaccine Date Status Refusal Reason tetanus/diphth/pertuss (Tdap) adult/adol 10/18/21 Given tetanus/diphth/pertuss (Tdap) adult/adol 05/10/17 Recorded tetanus/diphth/pertuss (Tdap) adult/adol 03/20/17 Recorded tetanus/diphth/pertuss (Tdap) adult/adol 05/25/12 Recorded hepatitis B adult vaccine 11/10/17 Recorded hepatitis B adult vaccine 10/09/17 Recorded hepatitis A adult vaccine 10/09/17 Recorded Medications amLODIPine 5 mg oral tablet 5 mg = 1 tab, Oral, Daily, # 30 tab, 0 Refill(s), Pharmacy: [place], [place], [address], cm, 12/17/22 0:09:00 CDT, Height/Length Dosing, 81, kg, 12/17/22 0:09:00 CDT, Weight Dosing Start Date: 12/22/22 Status: Ordered aspirin 81 mg oral delayed [...] 1 cap, Oral, BID, # 60 cap, 0 Refill(s), Pharmacy: [place], [place], [address], cm, 12/17/22 0:09:00 CDT, Height/Length Dosing, 81, kg, 12/17/22 0:09:00 CDT, Weight Dosing Start Date: 12/22/22 Status: Ordered mycophenolate mofetil 250 mg oral capsule 0 Refill(s) Start Date: 01/02/23 Status: Ordered Pepcid 20 mg oral tablet 20 mg = 1 tab, Oral, BID, 0 Refill(s) Start Date: 09/29/20 Status: Ordered Remeron 7.5 mg =, Oral, Daily, 0 Refill(s) Start Date: 07/16/22 Status: Ordered SEMAGLUTIDE/NAD+ 1000MCG-20MG/ SEMAGLUTIDE/NAD+ 1000MCG-20MG/, INJECT 25 UNITS (0.25ML OR 0.25MG) SUBCUTANEOUSLY ONCE A WEEK FOR 4WEEKS THEN 50 UNITS (0.5ML OR 0.5MG) SUBCUTANEOUSLY ONCE A WEEK FOR 4 WEEKS +SYRINGE KIT 10 Start Date: 01/02/23 Status: Ordered Topamax 25 mg oral tablet 50 mg = 2 tab, Oral, BID, 0 Refill(s) Start Date: 05/17/21 Status: Ordered venlafaxine 37.5 mg oral capsule, extended release 75 mg = 2 cap, Oral, Daily, # 30 cap, 0 Refill(s) Start Date: 10/13/21 Status: Ordered Problem List Condition Confirmation Course Effective Dates Status H ealth Status Informant Acne Confirmed Active Anxiety Confirmed Active Right-sided chest wall pain Confirmed Active Headache, chronic migraine without aura, intractable Confirmed Active Chronic neck pain Confirmed Active Chronic pain Confirmed Active Chronic pain Confirmed Active Congenital biliary atresia Confirmed Active Constipation Confirmed Active Degenerative disc disease, cervical Confirmed Active Difficulty sleeping Confirmed Active Gout Confirmed Active History of liver transplant Confirmed Active Hx of migraine headaches Confirmed Active Migraine headache Confirmed Active Heart murmur Confirmed Active History of burning pain in leg Confirmed Active History of kidney transplant Confirmed Active Idiopathic thrombocytopenic purpura Confirmed Active Liver transplant disorder Confirmed Active Lumbar back pain Confirmed Active Headache, chronic migraine without aura Confirmed Active Migraine headache Confirmed Active Pain, joint, multiple sites Confirmed Active Nausea Confirmed Active Cervicalgia Confirmed Active Obesity Confirmed Active Numbness and tingling of right arm Confirmed Active Chronic paronychia of finger Confirmed Active Thrombocytopenia Confirmed Active Intractable migraine Confirmed Active Headache, migraine, intractable Confirmed Active Right shoulder pain Confirmed Active Sprain of knee Confirmed Active 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 Foraminal stenosis of cervical region Confirmed Active Edema Confirmed Active Tachycardia Confirmed Active Tobacco use Confirmed Active Viral upper respiratory infection Confirmed Active Weight gain Confirmed Active 1had [...] 1normal 2normal Results Laboratory List Name Date Automated Diff 01/09/23 CBC w/ Diff 01/09/23 Comprehensive Metabolic Panel 01/09/23 Folate Level 01/09/23 Free T4 01/09/23 T3 Free 01/09/23 Thyroid Stimulating Hormone 01/09/23 Vitamin B12 Level 01/09/23 Most recent to oldest [Reference Range]: 1 WBC [4.0-11.5 K/mcL] 7.1 K/mcL (01/09/23 3:42 PM) RBC [4.20-5.40 x10^6/mcL] 4.28 x10^6/mcL (01/09/23 3:42 PM) Neutro Auto 67.5 % *NA* (01/09/23 3:42 PM) Lymph Auto 20.4 % *NA* (01/09/23 3:42 PM) [place] Auto 8.2 % *NA* (01/09/23 3:42 PM) Basophil Auto 0.1 % *NA* (01/09/23 3:42 PM) BUN [7-18 mg/dL] 24 mg/dL *HI* (01/09/23 3:42 PM) Glucose Level [70-110 mg/dL] 95 mg/dL (01/09/23 3:42 PM) Potassium Level [3.5-5.1 mmol/L] 4.1 mmo l/L (01/09/23 3:42 PM) Baso Absolute [0.0-0.1 x10^3/mcL] 0.0 x1 0^3/mcL (01/09/23 3:42 PM) MCV [78.0-100.0 fL] 99.5 fL (01/09/23 3:42 PM) T4 Free [0.76-1.46 ng/dL] 1.11 ng/dL (01/09/23 3:42 PM) AST [15-37 unit/L] 25 unit/L (01/09/23 3:42 PM) ALT [12-78 unit/L] 33 unit/L (01/09/23 3:42 PM) MCHC [29.0-37.5 g/dL] 33.3 g/dL (01/09/23 3:42 PM) T3 Free [2.18-3.98 pg/mL] 2.25 pg/mL (01/09/23 3:42 PM) Sodium Level [136-145 mmol/L] 139 mmol/L (01/09/23 3:42 PM) Folate Level [>=8.6 ng/mL] 19.7 ng/mL (01/09/23 3:42 PM) Lymph Absolute [0.8-5.8 x10^3/mcL] 1.4 x 10^3/mcL (01/09/23 3:42 PM) Hct [36.0-48.0 %] 42.6 % (01/09/23 3:42 PM) Calcium Level [8.5-10.1 mg/dL] 8.8 mg/dL (01/09/23 3:42 PM) [place] Absolute [0.1-1.5 x10^3/mcL] 0.6 x1 0^3/mcL (01/09/23 3:42 PM) Albumin Level [3.4-5.0 g/dL] 3.5 g/dL (01/09/23 3:42 PM) Protein Total [6.4-8.2 g/dL] 7.3 g/dL (01/09/23 3:42 PM) MCH [27.0-34.0 pg] 33.2 pg (01/09/23 3:42 PM) Neutro Absolute [1.5-8.1 x10^3/mcL] 4.8 x10^3/mcL (01/09/23 3:42 PM) Bilirubin Total [0.0-1.0 mg/dL] 0.6 mg/d L (01/09/23 3:42 PM) Hgb [12.0-16.0 g/dL] 14.2 g/dL (01/09/23 3:42 PM) B12 Level [193-986 pg/mL] 979 pg/mL (01/09/23 3:42 PM) Alk Phos [46-130 unit/L] 243 unit/L *HI* (01/09/23 3:42 PM) MPV [6.0-10.0 fL] 10.7 fL *HI* (01/09/23 3:42 PM) Platelets [150-450 K/mcL] 147 K/mcL *LOW* (01/09/23 3:42 PM) CO2 [21-32 mmol/L] 22 mmol/L (01/09/23 3:42 PM) Eos Absolute [0.0-0.5 x10^3/mcL] 0.3 x10 ^3/mcL (01/09/23 3:42 PM) TSH [0.36-3.74 mIntlUnit/mL] 0.46 mIntlU nit/mL (01/09/23 3:42 PM) eGFR Non-AA 43 *NA* (01/09/23 3:42 PM) eGFR AA 51 *NA* (01/09/23 3:42 PM) Chloride Level [97-107 mmol/L] 105 mmol/ L (01/09/23 3:42 PM) RDW-CV [11.5-15.0 %] 13.0 % (01/09/23 3:42 PM) Imm Gran Absolute [0.0-0.1 x10^3/mcL] 0. 0 x10^3/mcL (01/09/23 3:42 PM) Imm Gran Auto 0.3 % *NA* (01/09/23 3:42 PM) NRBC Auto 0.0 % *NA* (01/09/23 3:42 PM) NRBC Absolute [0.0-0.0 x10^3/mcL] 0.0 x1 0^3/mcL (01/09/23 3:42 PM) Slide Review Not Indicated (01/09/23 3:42 PM) Creatinine Level [0.60-1.30 mg/dL] 1.45 mg/dL 1 *HI* (01/09/23 3:42 PM) Anion Gap [5-15 mmol/L] 16 mmol/L *HI* (01/09/23 3:42 PM) Eos, Auto 3.5 % *NA* (01/09/23 3:42 PM) 1Interpretive Data: Association of GFR and staging of kidney disease GFR With Kidney Damage Without Kidney Damage >=90 Stage 1 Normal 60-89 Stage 2 Decreased GFR 30-59 Stage 3 Stage 3 15-29 Stage 4 Stage 4 <15 or Stage 5 Stage 5 dialysis EGFR values not applicable for pediatric patients nor in those >70 years of age. Social History Social History Type Response Tobacco Current everyday tob acco user Tobacco Use:. Sex Patient Care team information Care Team Personnel Name: Robert, Jessee [employer] ADVIS[employer] Position: Physician Member Role: Nurse Practitioner Address: Address: [address] [place] [address], [address] [place] [address]- Name: Latoya Marquez [employer] ADVIS[employer] Position: Physician Member Role: Nurse Practitioner Address: Address: [address] [place] [address]- Name: Leonila Gonzalez [employer] ADVIS[employer] Position: Physician Member Role: Nurse Practitioner Address: Address: [address] [place] [address]- Name: Beth Brandt [employer] ADVIS[employer] Position: Physician Member Role: Nurse Practitioner Address: Address: [address] [place] [address] Name: Hermes Ramirez MD Position: Physician Member Role: Primary Care Physician Address: Address: [address] [place] [address], [address] [place] [address]- Name: Anamika Gore MD Position: Physician - Women's Health Member Role: Informed Provider Name: Pillo Moe [employer] ADVIS[employer] Position: Physician Member Role: Nurse Practitioner Address: Address: [address] [place] [address], [address] [facility] Care Team Related Persons Name: STACIA JONES Address: Home [address] [place], [place] [id number] Name: ROBYN JAMA
--- OUTSIDE RECORDS SUMMARY | 2024-03-20 11:32 | XMS_ITS | Continuity of Care Document ---
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 Name Role Phone Hermes Ramirez Primary Care Physician Encounter [facility] [id number] Date(s): 06/18/22 - 06/18/[address] [address] Encounter Diagnosis Acute bronchitis(Discharge Diagnosis) - 06/18/22 Migraine headache(Discharge Diagnosis) - 06/18/22 Discharge Disposition: Home or Self Care Attending Physician: Maryam Cortés MD Admitting Physician: Maryam Cortés MD Allergies, Adverse Reactions, Alerts Substance Reaction Severity Status codeine Unknown Itching Severe Active gentamicin Moderate Active erythromycin Medication interaction Activ e azithromycin Unknown Severe Active aspirin Medication interaction Severe Activ e Toradol Kidney failure as a complication of care Severe Active NSAIDs Severe Active Assessment and Plan Future Scheduled Tests Laboratory* Giardia lamblia Ag, EIA 04/07/22 * Cryptosporidium EIA 04/07/22 * Stool Culture 04/07/22 * Clostridium difficile Amp 04/07/22 * Ova + Parasite Exam 04/07/22 Functional Status 06/18/22 Other exposure to Infectious Disease COV ID-19 Symptoms Present Immunizations Given and Recorded Vaccine Date Status Refusal Reason tetanus/diphth/pertuss (Tdap) adult/adol 10/18/21 Given tetanus/diphth/pertuss (Tdap) adult/adol 05/10/17 Recorded tetanus/diphth/pertuss (Tdap) adult/adol 03/20/17 Recorded tetanus/diphth/pertuss (Tdap) adult/adol 05/25/12 Recorded hepatitis B adult vaccine 11/10/17 Recorded hepatitis B adult vaccine 10/09/17 Recorded hepatitis A adult vaccine 10/09/17 Recorded Medications albuterol 90 mcg/inh aerosol inhaler 1 puffs, Inhale, every 4 hr, PRN as needed for wheezing, # 6.7 g, 0 Refill(s), Pharmacy: [place], [place], 73, cm, 09/13/21 23:53:00 CDT, Height/Length Dosing, 157, kg, 09/13/21 23:53:00 CDT, Weight Dosing Start Date: 09/14/21 Status: Ordered amLODIPine 10 mg oral tablet TAKE ONE TABLET DAILY Start Date: 12/18/20 Status: Ordered aspirin 81 mg oral delayed release tablet 81 mg = 1 tab, Oral, Daily, # 30 tab, 0 Refill(s) Start Date: 04/05/21 Status: Ordered buPROPion 100 mg/12 hours (SR) oral tablet, extended release TAKE ONE TABLET DAILY. swallow whole Start Date: 02/14/22 Status: Ordered butalbital/acetaminophen/caffeine 50 mg-300 mg-40 mg oral capsule 1 cap, Oral, every 4 hr, PRN as needed, # 12 cap, 0 Refill(s), Pharmacy: [place], [place], 157, cm, 11/04/21 20:02:00 CDT, Height/Length Dosing, 73, kg, 11/04/21 20:02:00 CDT, Weight Dosing Start Date: 11/04/21 Status: Ordered doxycycline hyclate 100 mg oral capsule 100 mg = 1 cap, Oral, BID, X 10 days, # 20 cap, 0 Refill(s), 06/28/22 16:36:00 CDT, Pharmacy: [id number], 157.48, cm, 06/18/22 14:40:00 CDT, Height/Length Dosing, 77.11, kg, 06/18/22 14:40:00 CDT, Weight Dosing Start Date: 06/18/22 Stop Date: 06/28/22 Status: Ordered gabapentin 300 mg oral capsule TAKE ONE CAPSULE AT BEDTIME Start Date: 12/18/20 Status: Ordered LORazepam 0.5 mg oral tablet TAKE ONE TABLET BY MOUTH DAILY NEEDED FOR ANXIETY Start Date: 12/18/20 Status: Ordered Metoprolol Tartrate 25 mg oral tablet 1 tab, Oral, BID, # 180 tab, 3 Refill(s), Pharmacy: [facility], 157.48, cm, 02/07/22 18:45:00CST, Height/Length Dosing, 72.57, kg, 02/07/22 18:45:00 ENT NURSE, Weight Dosing Start Date: 02/13/22 Status: Ordered morphine 2 mg/mL preservative-free injectable solution 2 mg = 1 mL, IM, Once, 0 Refill(s) Start Date: 05/05/22 Status: Ordered oseltamivir 30 mg oral capsule 30 mg = 1 cap, Oral, BID, # 10 cap, 0 Refill(s), Pharmacy: [place], [place], 157.48, cm, 03/16/22 18:01:00 ENT NURSE, Height/Length Dosing, 77.11, kg, 03/16/22 18:01:00 ENT NURSE, Weight Dosing Start Date: 03/16/22 Status: Ordered Pepcid 20 mg oral tablet 20 mg = 1 tab, Oral, BID, 0 Refill(s) Start Date: 09/29/20 Status: Ordered Phenergan 25 mg oral tablet 25 mg = 1 tab, Oral, every 6 hr, PRN as needed for nausea/vomiting, # 20 tab, 0 Refill(s), Pharmacy: [place], [place], 157, cm, 09/29/21 23:03:00 CDT, Height/Length Dosing, 77, kg, 09/29/21 23:03:00 CDT, Weight Dosing Start Date: 09/29/21 Stop Date: 10/04/21 Status: Ordered predniSONE 20 mg oral tablet 20 mg = 1 tab, Oral, BID, X 5 days, # 10 tab, 0 Refill(s), 06/23/22 16:36:00 CDT, Pharmacy: [id number], 157.48, cm, 06/18/22 14:40:00 CDT, Height/Length Dosing, 77.11, kg, 06/18/22 14:40:00CDT, Weight Dosing Start Date: 06/18/22 Stop Date: 06/23/22 Status: Ordered sirolimus 2 mg oral tablet 2 mg = 1 tab, Oral, Daily, at the same time every day in relation to meals, # 30 tab, 0 Refill(s) Start Date: 04/14/22 Status: Ordered Sod Bicarb Tab 10gr 1000 Rsg Sod Bicarb Tab 10gr 1000 Rsg, TAKE TWO TABLETS TWICE DAILY, after breakfast and dinner Start Date: 03/05/22 Status: Ordered tacrolimus 1 mg oral capsule, extended release 7 mg = 7 cap, Oral, Daily, 0 Refill(s) Start Date: 09/29/20 Status: Ordered Topamax 25 mg oral tablet 50 mg = 2 tab, Oral, BID, 0 Refill(s) Start Date: 05/17/21 Status: Ordered venlafaxine 37.5 mg oral capsule, extended release 75 mg = 2 cap, Oral, Daily, # 30 cap, 0 Refill(s) Start Date: 10/13/21 Status: Ordered Problem List Condition Confirmation Course Effective Dates Status H ealth Status Informant Acne Confirmed Active Anxiety Confirmed Active Headache, chronic migraine without aura, [...] Confirmed Active Lumbar back pain Confirmed Active Pain, joint, multiple sites Confirmed Active Cervicalgia Confirmed Active Numbness and tingling of right arm Confirmed Active Chronic paronychia of finger Confirmed Active Thrombocytopenia Confirmed Active Intractable migraine Confirmed Active Headache, migraine, intractable Confirmed Active Sprain of knee Confirmed Active 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 Foraminal stenosis of cervical region Confirmed Active Tachycardia Confirmed Active Tobacco use Confirmed Active 1had skin tag in groin removed that had this cancer Procedures Procedure Date Related Diagnosis Body Site Status Bladder washout 12/14/20 Completed Kidney transplant 05/13/20 Complet ed Tx - Liver transplantation 05/08/20 Completed delivery Complet ed cyst removal from breast Completed Hernia Completed liver transplant Complete d Results Laboratory List Name Date Strep A Screen 06/18/22 Most recent to oldest [Reference Range]: 1 Streptococcus A [Negative] Negative (06/18/22 3:20 PM) Radiology Reports * Exam Date Time Procedure Performing Provider Status 06/18/22 3:22 PM XR Chest 2 Views Chris French RT(R)(M) (CT)(ARRT); Auth (Verified) Notes: (XR Chest 2 Views) Reason For Exam: Cough XR Chest 2 Views EXAM DESCRIPTION: XR Chest 2 Views REASON FOR STUDY: Patient complains of cough, sore throat, sinus pressure. DURATION: 1 week Comparisons: 02/16/22 PREVIOUS SURGERY: kidney/liver transplant, hernia, cyst removal from breast, CANCER HISTORY: TYPE: skin on leg CANCER HISTORY: TREATMENT: removal SMOKING HISTORY: 2ppd TECHNIQUE: Frontal and lateral radiographic views of the chest acquired. COMPARISON: Chest radiograph dated 02/16/2022, 12/28/2021 and 06/23/2021. FINDINGS: There is no focal pneumonic consolidation, pleural effusion or pneumothorax. Cardiomediastinal silhouette projects enlarged. Osseous structures without gross acute interval change. IMPRESSION: There is no focal pneumonic consolidation. THIS IS AN ELECTRONICALLY VERIFIED FINAL REPORT 06/18/2022 3:30 PM - Electronically signed by Anthony Betancourt D.O. AP: AP Report ID: [id number] Reading Location: [place] [id number] Final Dictated by: Anthony Betancourt DO Dictated DT/TM: 06/18/2022 3:33 pm Signed by: Anthony Betancourt DO Signed (Electronic Signature): 06/18/2022 3:33 pm Vital Signs Most recent to oldest [Reference Range]: 1 2 Temperature Oral [35.8-37.3 Deg C] 37 De g C (06/18/22 2:26 PM) Peripheral Pulse Rate [60-100 bpm] 78 bp m (06/18/22 4:49 PM) 76 bpm (06/18/22 2:26 PM) Respiratory Rate [12-24 br/min] 18 br/mi n (06/18/22 4:49 PM) 18 br/min (06/18/22 2:26 PM) Blood Pressure [90-140/60-90 mmHg] 154/9 3mmHg *HI* (06/18/22 4:49 PM) 147/91mmHg *HI* (06/18/22 2:26 PM) Weight 77.11 kg (06/18/22 2:26 PM) Weight Dosing 77.11 kg (06/18/22 2:40 PM) Height 157.480 cm (06/18/22 2:26 PM) Height/Length Dosing 157.480 cm (06/18/22 2:40 PM) Body Mass Index 31.000 kg/m2 (06/18/22 2:26 PM) Social History Social History Type Response Tobacco Current everyday tob acco user Tobacco Use:. Sex Hospital Discharge Instructions Patient Education 06/18/2022 16:26:35 Acute Bronchitis, Adult, [id number]-el-[id number] Acute Bronchitis, Adult Acute bronchitis is when air tubes in the lungs (bronchi) suddenly get swollen. The condition can make it hard for you to breathe. In adults, acute bronchitis usually goes away within 2 weeks. A cough caused by bronchitis may last up to 3 weeks. Smoking, allergies, and asthma can make the conditionworse. What are the causes? This condition is caused by: ??? Cold and flu viruses. The most common cause of this condition is the virus that causes the common cold. ??? Bacteria. ??? Substances that irritate the lungs, including: ??? Smoke from cigarettes and other types of tobacco. ??? Dust and pollen. ??? Fumes from chemicals, gases, or burned fuel. ??? Other materials that pollute indoor or outdoor air. ??? Close contact with someone who has acute bronchitis. What increases the risk? The following factors may make you more likely to develop this condition: ??? A weak body's defense system. This is also called the immune system. ??? Any condition that affects your lungs and breathing, such as asthma. What are the signs or symptoms? Symptoms of this condition include: ??? A cough. ??? Coughing up clear, yellow, or green mucus. ??? Wheezing. ??? Having too much mucus in your lungs (chest congestion). ??? Shortness of breath. ??? A fever. ??? Chills. ??? Body aches. ??? A sore throat. How is this treated? Acute bronchitis may go away over time without treatment. Your doctor may recommend: ??? Drinking more fluids. ??? Using a device that gets medicine into your lungs (inhaler). ??? Using a vaporizer or a humidifier. These are machines that add water or moisture to the air. This helps with coughing and poor breathing. ??? Taking a medicine for fever. ??? Taking a medicine that thins mucus and clears congestion. ??? Taking a medicine that prevents or stops coughing. Follow these instructions at home: Activity ??? Get a lot of rest. ??? Return to your normal activities as told by your doctor. Ask your doctor what activities are safe for you. Lifestyle ??? Drink enough fluid to keep your pee (urine) pale yellow. ??? Do not drink alcohol. ??? Do not use any products that contain nicotine or tobacco, such as cigarettes, e-cigarettes, andchewing tobacco. If you need help quitting, ask your doctor. Be aware that: ??? Your bronchitis will get worse if you smoke or breathe in other people's smoke (secondhand smoke). ??? Your lungs will heal faster if you quit smoking. General instructions ??? Take wyvj-gza-ydjnnyb and prescription medicines only as told by your doctor. ??? Use an inhaler, cool mist vaporizer, or humidifier as told by your doctor. ??? Rinse your mouth often with salt water. To make salt water, dissolve ?1 tsp (3???6 g) of salt in 1 cup (237 mL) of warm water. ??? Take two teaspoons of honey at bedtime. This helps lessen your coughing at night. ??? Keep all follow-up visits as told by your doctor. This is important. How is this prevented? To lower your risk of getting this condition again: ??? Wash your hands often with soap and water. If you cannot use soap and water, use hand procedures tech. ??? Avoid contact with people who have cold symptoms. ??? Try not to touch your mouth, nose, or eyes with your hands. ??? Make sure to get the flu shot every year. Contact a doctor if: ??? Your symptoms do not get better in 2 weeks. ??? You vomit more than once or twice. ??? You have symptoms of loss of fluid from your body (dehydration). These include: ??? Dark pee. ??? Dry skin or eyes. ??? Increased thirst. ??? Headaches. ??? Confusion. ??? Muscle cramps. Get help right away if: ??? You cough up blood. ??? You have chest pain. ??? You have very bad shortness of breath. ??? You become dehydrated. ??? You faint or keep feeling like you are going to faint. ??? You have a very bad headache. ??? Your fever or chills get worse. These symptoms may be an emergency. Get help right away. Call your local emergency services (911 int [place] ??? Do not wait to see if the symptoms will go away. ??? Do not drive yourself to the hospital. Summary ??? Acute bronchitis is when air tubes in the lungs (bronchi) suddenly get swollen. In adults, acute bronchitis usually goes away within 2 weeks. ??? Take zrsp-hwd-yqqtrgr and prescription medicines only as told by your doctor. ??? Drink enough fluid to keep your pee (urine) pale yellow. ??? Contact a doctor if your symptoms do not improve after 2 weeks of treatment. ??? Get help right away if you cough up blood, faint, or have chest pain or shortness of breath. This information is not intended to replace advice given to you by your health care provider. Make sure you discuss any questions you have with your health care provider. Document Revised: 02/03/2021 Document Reviewed: 09/27/2019 [employer] Patient Education ?? 2021 [employer]. Follow Up Care 06/18/2022 14:26:45 With:Hermes Ramirez MD Address: [address] [place] [address], [address] [place] [address]- When:1 week Physician Emergency department Note * Maryam Cortés MD: PERFORM Event Display: ED Note Physician Authored Date: [id number] MISHA JACKSON :1980 Age:41 years Sex:Female Visit Date:06/18/2022 Primary Care Physician: Hermes Ramirez MD Basic Information Time Seen: Maryam Cortés MD / 06/18/2022 14:56 Chief Complaint sore throat, cough, sinus pressure, migraine since monday. [facility] tested for flu, COVID, and strep all negative. ??took nyquil last night before bed. History Of Present Illness: Patient at ER for complaints of having sore throat and a cough for past 5-6 days. Sore throat is severe and continuous, felt in RT side of throat. She is able to swallow. Cough is productive of greenish sputum. Has slight SOB. No chest pain. She also complains of having severe generalized headaches. Has a h/o migraines. States she has an appointment this week to get Botox treatment for headaches in [place].?? Review of Systems: Constitutional:?No??fevers,?No??chills,?No??sweats Eye:?No??recent visual problems ENT:?No??ear pain,?No??nasal congestion,?Positive for??sore throat Respiratory:?No??shortness of breath,?Positive for??cough Cardiovascular:?No??Chest pain,?No??palpitations,?No??syncope Gastrointestinal:?Nonausea,?No??vomiting,?No??diarrhea Genitourinary:?No??hematuria Clemente/Lymph:?No??bruising tendency,?No??swollen lymph glands Endocrine:?No??excessive thirst,??No??excessive hunger Musculoskeletal:??No??back pain,??No??neck pain,??No??joint pain,??No??muscle pain,??No??decreased range of motion Integumentary:?No??rash,?No??pruritus,?No??abrasions Neurologic: Alert & oriented X 4 Psychiatric:?No??anxiety,?No??depression Physical Exam Vitals & Measurements T:??37?C ??(Oral)?? HR:??76??(Peripheral)?? RR:??18?? BP:??147/91?? SpO2:??99%?? HT:??157.480??cm?? WT:??77.11??kg?? BMI:??31.000?? Pain Score:??7?? O2 Therapy:??Room air?? General: Alert and oriented, well nourished,?No??acute distress Eye: PERRL, EOMI,?Normal??conjunctiva HENT: Normocephalic, clear tympanic membranes,?Normal?? hearing, moist oral mucosa,?No??scleral icterus,?No??sinus tenderness Neck: Supple, non-tender,?No??carotid bruits,?No??JVD,?No??lymphadenopathy Lungs:??Clear to auscultation?? Respiration:??Non-Labored Heart:?Normal?? rate,?Regular??rhythm,?No??murmur,?No??gallop,?No??edema Breast:?No??lumps,?No??bumps,?No??scars,?Normal?? nipples Abdomen: Soft, non-tender, non-distended,?Normal?? bowel sounds,?No??masses Musculoskeletal:?Normal?? range of motion and strength,?No??tenderness,?No??swelling Skin: Skin is warm, dry and pink,?No??rashes,?No??lesions Neurologic: Awake, alert and oriented X4, CN II-XII intact Psychiatric: Cooperative, appropriate mood and affect Medical Decision Making: Phenergan 25 mg IM, Benadryl 50 mg IM, Dilaudid 1 mg IM given IM x 1 ?? Rapid Strep - NEGATIVE. ?? (06/18/2022 15:22 CDT XR Chest 2 Views) IMPRESSION: There is no focal pneumonic consolidation. ?? THIS IS AN ELECTRONICALLY VERIFIED FINAL REPORT 06/18/2022 3:30 PM - Electronically signed by ??Anthony Betancourt D.O. ?? AP: AP D: ??06/18/2022 3:30 PM T: ??06/18/2022 3:30 PM ?? Report ID: [id number] Reading Location: ??[id number] ? Signature Line Final ?? Dictated by: ?Anthony Betancourt DO Dictated DT/TM: 06/18/2022 3:33 pm Signed by: ??Anthony Betancourt DO Signed (Electronic Signature): ??06/18/2022 3:33 pm [1] Procedure No Qualifying Data Assessment/Plan 1.??Acute bronchitis??J20.9 2.??Migraine headache??G44.89 Orders: doxycycline hyclate 100 mg oral capsule, 100 mg = 1 cap, Oral, BID, X 10 days, # 20 cap, 0 Refill(s), 06/28/22 16:29:00 CDT, Pharmacy: [place], [place], 157.48, cm, 06/18/22 14:40:00 CDT, Height/Length Dosing, 77.11, kg, 06/18/22 14:40:00 CDT, Weight Dosing predniSONE 20 mg oral tablet, 20 mg = 1 tab, Oral, BID, X 5 days, # 10 tab, 0 Refill(s), 06/23/22 16:27:00 CDT, Pharmacy: [place], [place], 157.48, cm, 06/18/22 14:40:00 CDT, Height/Length Dosing, 77.11, kg, 06/18/22 14:40:00 CDT, Weight Dosing Discharge Patient, 06/18/22 16:31:00 CDT Patient Discharge Condition Headache improved. Patient stable. Discharge Disposition Home. Patient Education Acute Bronchitis, Adult, Xrom-[id number] Follow Up With When Contact Information Hermes Ramirez MD Within 1 week [facility] [address] [place] [address]- Additional Instructions: Medication Reconciliation New Prescription doxycycline (doxycycline hyclate 100 mg oral capsule)1 Capsules Oral (given by mouth) 2 times a dayfor 10 Days. Refills: 0. ?? predniSONE (predniSONE 20 mg oral tablet)1 tab Oral (given by mouth) 2 times a day for 5 Days. Refills: 0. ?? Unchanged albuterol (albuterol 90 mcg/inh aerosol inhaler)1 Puffs Inhale (breathe in) every 4 hours as neededas needed for wheezing. Refills: 0. ?? amLODIPine (amLODIPine 10 mg oral tablet)TAKE ONE TABLET DAILY. ?? aspirin (aspirin 81 mg oral delayed release tablet)1 tab Oral (given by mouth) every day. ?? buPROPion (buPROPion 100 mg/12 hours (SR) oral tablet, extended release)TAKE ONE TABLET DAILY. swallow whole. ?? butalbital/acetaminophen/caffeine (butalbital/acetaminophen/caffeine 50 mg-300 mg-40 mg oral capsule)1 Capsules Oral (given by mouth) every 4 hours as needed. Refills: 0. ?? famotidine (Pepcid 20 mg oral tablet)1 tab Oral (given by mouth) 2 times a day. ?? gabapentin (gabapentin 300 mg oral capsule)TAKE ONE CAPSULE AT BEDTIME. ?? LORazepam (LORazepam 0.5 mg oral tablet)TAKE ONE TABLET BY MOUTH DAILY NEEDED FOR ANXIETY. ?? metoprolol (Metoprolol Tartrate 25 mg oral tablet)1 tab Oral (given by mouth) 2 times a day. Refills: 3. ?? morphine (morphine 2 mg/mL preservative-free injectable solution)1 Milliliters Intramuscular (in a muscle) once. ?? oseltamivir (oseltamivir 30 mg oral capsule)1 Capsules Oral (given by mouth) 2 times a day. Refills: 0. ?? Other Prescription (Sod Bicarb Tab 10gr 1000 Rsg)TAKE TWO TABLETS TWICE DAILY, after breakfast and dinner. ?? promethazine (Phenergan 25 mg oral tablet)1 tab Oral (given by mouth) every 6 hours as needed as needed for nausea/vomiting for 5 Days. Refills: 0. ?? sirolimus (sirolimus 2 mg oral tablet)1 tab Oral (given by mouth) every day. at the same time everyday in relation to meals. ?? tacrolimus (tacrolimus 1 mg oral capsule, extended release)7 Capsules Oral (given by mouth) every day. ?? topiramate (Topamax 25 mg oral tablet)2 tab Oral (given by mouth) 2 times a day. ?? venlafaxine (venlafaxine 37.5 mg oral capsule, extended release)2 Capsules Oral (given by mouth) every day. Problem List/Past Medical History Ongoing Acne Anxiety Cervicalgia Chronic neck pain Chronic pain Chronic pain Chronic paronychia of finger Congenital biliary atresia Constipation Degenerative disc disease, cervical Difficulty sleeping Foraminal stenosis of cervical region Gout Headache, chronic migraine without aura, intractable Headache, migraine, intractable Heart murmur History of burning pain in leg History of kidney transplant History of liver transplant Hx of migraine headaches Idiopathic thrombocytopenic purpura Intractable migraine Liver transplant disorder Lumbar back pain Migraine headache Numbness and tingling of right arm Pain, joint, multiple sites Sprain of knee Squamous cell carcinoma in situ Tachycardia Thrombocytopenia Tobacco use Historical Abdominal pain in female Acute dehydration Acute urinary tract infection Bilateral conjunctivitis Chronic kidney disease, stage IV (severe) Conjunctivitis, left eye COVID-19 Disease caused by 2019 novel coronavirus Disease caused by 2019 novel coronavirus Ear drainage right Edema Fever Flank pain Headache, chronic migraine without aura Health education/counseling Influenza A Intractable chronic migraine without aura Itching of vulva Lab test positive for detection of COVID-19 virus Otalgia of right ear Otitis externa of right ear Rash Recurrent streptococcal tonsillitis Right otitis externa Skin change Sore throat Upper respiratory infection Urinary tract infection in female Yellow eyes Procedure/Surgical History ???Bladder washout (12/14/2020)???Kidney transplant (05/13/2020)???Tx - Liver transplantation (05/08/2020)??? delivery???cyst removal from breast???Hernia???liver transplant Medication Administration Given Benadryl, 50 mg, IM Dilaudid, 1 mg, IM Phenergan, 25 mg, IM Allergies NSAIDs Toradol??(Kidney failure as a complication of care) aspirin??(Medication interaction) azithromycin??(Unknown) codeine??(Unknown, Itching) gentamicin erythromycin??(Medication interaction) Social History Alcohol Never Electronic Cigarette/Vaping Electronic Cigarette Use: Never. Substance Use Never Tobacco Current everyday tobacco user Tobacco Use:. Family History Cancer: Mother. Diagnostic Results XR Chest 2 Views 06/18/2022 15:33 CDT XR Chest 2 Views ?? 06/18/22 15:27:33 ? EXAM DESCRIPTION: XR Chest 2 Views ?? REASON FOR STUDY: Patient complains of cough, sore throat, sinus pressure. ? DURATION: 1 week ?? Comparisons: 02/16/22 ? PREVIOUS SURGERY: kidney/liver transplant, hernia, cyst removal from breast, ? CANCER HISTORY: TYPE: skin on leg ? CANCER HISTORY: TREATMENT: removal ? SMOKING HISTORY: 1/2ppd ? TECHNIQUE: Frontal and lateral radiographic views of the chest acquired. ?? COMPARISON: Chest radiograph dated 02/16/2022, 12/28/2021 and 06/23/2021. ?? FINDINGS: There is no focal pneumonic consolidation, pleural effusion or pneumothorax. Cardiomediastinal silhouette projects enlarged. Osseous structures without gross acute interval change. ?? IMPRESSION: There is no focal pneumonic consolidation. ?? THIS IS AN ELECTRONICALLY VERIFIED FINAL REPORT 06/18/2022 3:30 PM_Electronically signed by Anthony Betancourt D.O. ?? AP: LAKSHMI ?? Report ID: [id number] Reading Location: [place] [id number] ?? Signed By: Anthony Betancourt DO Lab Results Infectious Disease?? LATEST RESULTS?? HISTORICAL RESULTS?? Streptococcus A?? 06/18/22 15:20?? Negative?? 03/16/22?? Negative? [1]??XR Chest 2 Views; Anthony Betancourt DO 06/18/2022 15:22 CDT Electronically Signed on 06/18/22 04:33 PM Maryam Cortés MD XR Chest 2 Views * Anthony Betancourt DO: VERIFY, VERIFY, PERFORM Event Display: Report Authored Date: [id number] EXAM DESCRIPTION: XR Chest 2 Views REASON FOR STUDY: Patient complains of cough, sore throat, sinus pressure. DURATION: 1 week Comparisons: 02/16/22 PREVIOUS SURGERY: kidney/liver transplant, hernia, cyst removal from breast, CANCER HISTORY: TYPE: skin on leg CANCER HISTORY: TREATMENT: removal SMOKING HISTORY: pd TECHNIQUE: Frontal and lateral radiographic views of the chest acquired. COMPARISON: Chest radiograph dated 02/16/2022, 12/28/2021 and 06/23/2021. FINDINGS: There is no focal pneumonic consolidation, pleural effusion or pneumothorax. Cardiomediastinal silhouette projects enlarged. Osseous structures without gross acute interval change. IMPRESSION: There is no focal pneumonic consolidation. THIS IS AN ELECTRONICALLY VERIFIED FINAL REPORT 06/18/2022 3:30 PM - Electronically signed by Anthony Betancourt D.O. AP: AP Report ID: [id number] Reading Location: [place] [id number] Final Dictated by: Anthony Betancourt DO Dictated DT/TM: 06/18/2022 3:33 pm Signed by: Anthony Betancourt DO Signed (Electronic Signature): 06/18/2022 3:33 pm Patient Care team information Care Team Personnel Name: Jessee Jones CIRCUIT RECORDER Position: Physician Member Role: Nurse Practitioner Address: Address: [address] [place] [address], [address] Name: Latoya Marquez CIRCUIT RECORDER Position: Physician Member Role: Nurse Practitioner Address: Address: [address] [place] [address]- Name: Leonila Gonzalez CIRCUIT RECORDER Position: Physician Member Role: Nurse Practitioner Address: Address: [address] [place] [address] Name: Beth Brandt CIRCUIT RECORDER Position: Physician Member Role: Nurse Practitioner Address: Address: [address] [place] [address] Name: Hermes Ramirez MD Position: Physician Member Role: Informed Provider Address: Address: [address] [place] [address], [address] [place] [address]- [place] Name: Pillo Moe NP Position: Physician Member Role: Nurse Practitioner Address: Address: [address] [place] [address], [address] [facility] Name: Maryam Cortés MD Position: Physician Member Role: Admitting Physician Address: Address: [address] [place] [address] [place] [address]- Name: Gia Underwood RN Position: Nurse Member Role: ED Nurse Care Team Related Persons Name: STACIA JONES Address: Home [address] [place], [place] [id number] Name: ROBYN JAMA Address: Home
--- OUTSIDE RECORDS SUMMARY | 2024-03-20 11:32 | XMS_ITS | Continuity of Care Document ---
Author Organization [facility] Address [address] [place] [address] Care Team Providers Care Rail Car Repairman Name Role Phone Hermes Ramirez Primary Care Physician Encounter ONOFRE MCGRAW [id number] Date(s): 06/15/22 - 06/15/22 [place] [address] [place] [address]- [place] Discharge Disposition: Home or Self Care Attending Physician: Beth Brandt MEN'S GARMENT FITTER Admitting Physician: Beth Brandt MEN'S GARMENT FITTER Allergies, Adverse Reactions, Alerts Substance Reaction Severity Status codeine Unknown Itching Severe Active gentamicin Moderate Active erythromycin Medication interaction Activ e azithromycin Unknown Severe Active aspirin Medication interaction Severe Activ e Toradol Kidney failure as a complication of care Severe Active NSAIDs Severe Active Assessment and Plan Diagnostic Tests Pending * Throat Culture 06/15/22 Future Scheduled Tests Laboratory* Giardia lamblia Ag, EIA LC 04/07/22 * Cryptosporidium EIA LC 04/07/22 * Stool Culture LC 04/07/22 * Clostridium difficile Amp 04/07/22 * Ova + Parasite Exam LC 04/07/22 Immunizations Given and Recorded Vaccine Date Status [...] wheezing, # 6.7 g, 0 Refill(s), Pharmacy: [place], [place], 73, cm, 09/13/21 23:53:00 CDT, Height/Length [...] needed, # 12 cap, 0 Refill(s), Pharmacy: [place], [place], 157, cm, 11/04/21 20:02:00 CDT, Height/Length Dosing, 73, kg, 11/04/21 20:02:00 CDT, Weight Dosing Start Date: 11/04/21 Status: Ordered gabapentin 300 mg oral capsule TAKE ONE CAPSULE AT BEDTIME Start Date: 12/18/20 Status: Ordered LORazepam 0.5 mg oral tablet TAKE ONE TABLET BY MOUTH DAILY NEEDED FOR ANXIETY Start Date: 12/18/20 Status: Ordered Metoprolol Tartrate 25 mg oral tablet 1 tab, Oral, BID, # 180 tab, 3 Refill(s), Pharmacy: [facility], 157.48, cm, 02/07/22 18:45:00CST, Height/Length Dosing, 72.57, kg, 02/07/22 18:45:00 RAIL PROJECT ENGINEER, Weight Dosing Start Date: 02/13/22 Status: Ordered morphine 2 mg/mL preservative-free injectable solution 2 mg = 1 mL, IM, Once, 0 Refill(s) Start Date: 05/05/22 Status: Ordered oseltamivir 30 mg oral capsule 30 mg = 1 cap, Oral, BID, # 10 cap, 0 Refill(s), Pharmacy: [place], [place], 157.48, cm, 03/16/22 18:01:00 RAIL PROJECT ENGINEER, Height/Length Dosing, 77.11, kg, 03/16/22 18:01:00 RAIL PROJECT ENGINEER, Weight Dosing Start Date: 03/16/22 Status: Ordered Pepcid 20 mg oral tablet 20 mg = 1 tab, Oral, BID, 0 Refill(s) Start Date: 09/29/20 Status: Ordered Phenergan 25 mg oral tablet 25 mg = 1 tab, Oral, every 6 hr, PRN as needed for nausea/vomiting, # 20 tab, 0 Refill(s), Pharmacy: [facility], [place], 157, cm, 09/29/21 23:03:00 CDT, Height/Length Dosing, 77, kg, 09/29/21 23:03:00 CDT, Weight Dosing Start Date: 09/29/21 Stop Date: 10/04/21 Status: Ordered sirolimus 2 mg oral tablet [...] pain Confirmed Active Migraine headache Confirmed Active Pain, [...] Completed Hernia Completed liver transplant Complete d Social History Social History Type Response Tobacco Current everyday tob acco user Tobacco Use:. Sex Patient Care team information Care Team Personnel Name: Jessee Jones MEN'S GARMENT FITTER Position: Physician Member Role: Nurse Practitioner Address: Address: [address] [place] [address], [address] [place] [address]- Name: Latoya Marquez MEN'S GARMENT FITTER Position: Physician Member Role: Nurse Practitioner Address: Address: [address] [place] [address]- Name: Leonila Gonzalez MEN'S GARMENT FITTER Position: Physician Member Role: Nurse Practitioner Address: Address: [address] [place] [address]- Name: Beth Brandt MEN'S GARMENT FITTER Position: Physician Member Role: Nurse Practitioner Address: Address: [address] [place] [address] Name: Hermes Ramirez MD Position: Physician Member Role: Informed Provider Address: Address: [address] [place] [address], [address] [place] [address]- Name: Pillo Moe NP Position: Physician Member Role: Nurse Practitioner Address: Address: [address] [place] [address], [address] [facility] Care Team Related Persons Name: STACIA JONES Address: Home [address] [place], [place] [id number] Name: ROBYN JAMA Address: Home
--- OUTSIDE RECORDS SUMMARY | 2024-03-20 11:33 | XMS_ITS | Continuity of Care Document ---
Author Organization [facility] Address [address] [place] [address]- Care Team Providers Care Mechanical Tech Name Role Phone Hermes Ramirez Primary Care Physician Encounter ONOFRE MARILUZ [id number] Date(s): 03/24/21 - 03/24/21 [facility] [address], [place] [address] Encounter Diagnosis Pain, joint, multiple sites(Discharge Diagnosis) - 03/24/21 UTI symptoms(Discharge Diagnosis) - 03/24/21 Chronic paronychia of finger(Discharge Diagnosis) - 03/24/21 Discharge Disposition: Home or Self Care Attending Physician: Hermes Ramirez MD Allergies, Adverse Reactions, Alerts Substance Reaction Severity Status gentamicin Moderate Active erythromycin Medication interaction Activ e aspirin Medication interaction Activ e Toradol Kidney failure as a complication of care Active NSAIDs Severe Active Assessment and Plan Future Appointments Future Scheduled Tests Laboratory* Rheumatoid Arthritis Factor LC 03/24/21 * CCP Antibodies IgG/IgA LC 03/24/21 * Sedimentation Rate (ESR) 03/24/21 Referrals to Other Providers paronychia Referred by: Hermes Ramirez MD Functional Status 03/24/21 Other exposure to Infectious Disease Non e Immunizations Given and Recorded Vaccine Date Status [...] BID, # 180 tab, 3 Refill(s), Pharmacy: [place], [place], [address], cm, 10/22/20 21:26:00 CDT, Height/Length Dosing, 74, kg, 10/22/20 21:26:00 CDT, Weight Dosing Start Date: 12/18/20 Status: Ordered Pepcid 20 mg oral tablet 20 mg = 1 tab, Oral, BID, 0 Refill(s) Start Date: 09/29/20 Status: Ordered Retin-A 0.05% topical cream 1 sanjiv, Topical, every day at bedtime, # 45 g, 2 Refill(s), Pharmacy: [place], [place], [address], cm, 08/18/20 12:26:00 CDT, Height/Length [...] Abdominal pain in female(Confirmed) Active Acne(Confirmed) Active Anxiety(Confirmed) Active Chronic pain(Confirmed) Active Chronic pain(Confirmed) Active Congenital biliary atresia(Confirmed) Active Bilateral conjunctivitis(Confirmed) Active Constipation(Confirmed) Active Difficulty sleeping(Confirmed) Active Gout(Confirmed) Active History of liver transplant(Confirmed) Active Hx of migraine headaches(Confirmed) Active Heart murmur(Confirmed) Active History of kidney transplant(Confirmed) Active Idiopathic thrombocytopenic purpura(Confirmed) Active Liver transplant disorder(Confirmed) Active Lumbar back pain(Confirmed) Active Migraine(Confirmed) Active Migraine headache(Confirmed) Active Pain, joint, multiple sites(Confirmed) Active Numbness and tingling of rig ht arm(Confirmed) Active Chronic paronychia of finger(Confirmed) Active Thrombocytopenia(Confirmed) Active Sprain of knee(Confirmed) Active Tachycardia(Confirmed) Active Tobacco use(Confirmed) Active Procedures Procedure Date Related Diagnosis Body Site Status Bladder washout 12/14/20 Completed Kidney transplant 05/13/20 Complet ed Tx - Liver transplantation 05/08/20 Completed delivery Complet ed cyst removal from breast Completed Hernia Completed liver transplant Complete d Results Laboratory List Name Date Urine Dipstick POC 03/24/21 Most recent to oldest [Reference Range]: 1 Protein Urine Dipstick POC Negative (03/24/21 2:42 PM) Ketones Urine Dipstick POC Negative (03/24/21 2:42 PM) Leukocytes Urine Dipstick Negative (03/24/21 2:42 PM) Nitrite Urine Dipstick Negative (03/24/21 2:42 PM) Urobilinogen Urine Dipstick 0.2 mg/dl (03/24/21 2:42 PM) pH Urine Dipstick 6 (03/24/21 2:42 PM) Blood Urine Dipstick Negative (03/24/21 2:42 PM) Specific [place] Urine Dipstick 1.020 (03/24/21 2:42 PM) Bilirubin Urine Dipstick Negative (03/24/21 2:42 PM) Glucose Urine Dipstick Negative (03/24/21 2:42 PM) Urine Color Urine Dipstick Yellow (03/24/21 2:42 PM) Urine Appearance Urine Dipstick Clear (03/24/21 2:42 PM) Vital Signs Most recent to oldest [Reference Range]: 1 Temperature Oral [35.8-37.3 Deg C] 37.1 Deg C (03/24/21 2:36 PM) Peripheral Pulse Rate [60-100 bpm] 94 bp m (03/24/21 2:36 PM) Respiratory Rate [12-24 br/min] 18 br/mi n (03/24/21 2:36 PM) Blood Pressure [90-140/60-90 mmHg] 122/6 4mmHg (03/24/21 2:36 PM) Weight 80.74 kg (03/24/21 2:36 PM) Weight Measured (lbs) 178.001 lb (03/24/21 2:36 PM) Social History Social History Type Response Smoking Status 5-9 cigarettes (betw een 1/4 to 1/2 pack)/day in last 30 days entered on: 08/18/20 Sex Reason for Referral paronychia Referred by: Hermes Ramirez MD
--- OUTSIDE RECORDS SUMMARY | 2024-03-20 11:33 | XMS_ITS | Continuity of Care Document ---
Author Organization [facility] Address [address] [place] [address] Care Team Providers Care Saw Filer Name Role Phone Hermes Ramirez Primary Care Physician Encounter RIPON MARILUZ [id number] Date(s): 09/13/21 - 09/14/[address] [address] Encounter Diagnosis Migraine headache(Discharge Diagnosis) - 09/14/21 Acute rhinosinusitis(Discharge Diagnosis) - 09/14/21 Discharge Disposition: Home or Self Care Attending Physician: Akil Casas MD Admitting Physician: Akil Casas MD Allergies, Adverse Reactions, Alerts Substance Reaction Severity Status gentamicin Moderate Active erythromycin Medication interaction Activ e aspirin Medication interaction Activ e Toradol Kidney failure as a complication of care Active NSAIDs Severe Active Immunizations Given and Recorded Vaccine Date Status Refusal Reason hepatitis B adult vaccine 11/10/17 Recorded hepatitis B adult vaccine 10/09/17 Recorded hepatitis A adult vaccine 10/09/17 Recorded tetanus/diphth/pertuss (Tdap) adult/adol 05/10/17 Recorded tetanus/diphth/pertuss (Tdap) adult/adol 03/20/17 Recorded tetanus/diphth/pertuss (Tdap) adult/adol 05/25/12 Recorded Medications !-Augmentin 875 mg-125 mg oral tablet amoxicillin (as trihydrate) 1 tab, Oral, every 12 hr, # 20 tab, 0 Refill(s), Pharmacy: [facility] [place], [place], 73, cm, 09/13/21 23:53:00 CDT, Height/Length Dosing, 157, kg, 09/13/21 23:53:00 CDT, Weight Dosing Start Date: 09/14/21 Stop Date: 09/24/21 Status: Ordered albuterol 90 mcg/inh aerosol inhaler 1 puffs, Inhale, every 4 hr, PRN as needed for wheezing, # 6.7 g, 0 Refill(s), Pharmacy: [place], [place], 73, cm, 09/13/21 23:53:00 CDT, Height/Length Dosing, 157, kg, 09/13/21 23:53:00 CDT, Weight Dosing Start Date: 09/14/21 Status: Ordered amLODIPine 10 mg oral tablet TAKE ONE TABLET DAILY Start Date: 12/18/20 Status: Ordered aspirin 81 mg oral delayed release tablet 81 mg = 1 tab, Oral, Daily, # 30 tab, 0 Refill(s) Start Date: 04/05/21 Status: Ordered butalbital/acetaminophen/caffeine 50 mg-325 mg-40 mg oral tablet 1 tab, Oral, every 4 hr, 0 Refill(s) Start Date: 08/18/20 Status: Ordered codeine-guaifenesin 7.5 mg-225 mg/5 mL oral liquid 7.5 mL, Oral, every 6 hr, PRN as needed for cough, # 120 mL, 0 Refill(s), Pharmacy: [place], [place], 73, cm, 09/13/21 23:53:00 CDT, Height/Length Dosing, 157, kg, 09/13/21 23:53:00 CDT, Weight Dosing Start Date: 09/14/21 Status: Ordered gabapentin 300 mg oral capsule TAKE ONE CAPSULE AT BEDTIME Start Date: 12/18/20 Status: Ordered LORazepam 0.5 mg oral tablet TAKE ONE TABLET BY MOUTH DAILY NEEDED FOR ANXIETY Start Date: 12/18/20 Status: Ordered melatonin 10 mg oral tablet 10 mg = 1 tab, Oral, every night at bedtime, PRN as needed for insomnia, # 200 tab, 0 Refill(s) Start Date: 04/05/21 Status: Ordered Metoprolol Tartrate 25 mg oral tablet 25 mg = 1 tab, Oral, BID, # 180 tab, 3 Refill(s), Pharmacy: [place], [place], 157, cm, 10/22/20 21:26:00 CDT, Height/Length Dosing, 74, kg, 10/22/20 21:26:00 CDT, Weight Dosing Start Date: 12/18/20 Status: Ordered Pepcid 20 mg oral tablet 20 mg = 1 tab, Oral, BID, 0 Refill(s) Start Date: 09/29/20 Status: Ordered tacrolimus 1 mg oral capsule, extended release 3 mg = 3 cap, Oral, Daily, 0 Refill(s) Start Date: 09/29/20 Status: Ordered Topamax 25 mg oral tablet 25 mg = 1 tab, Oral, BID, 0 Refill(s) Start Date: 05/17/21 Status: Ordered traZODone 150 mg oral tablet 150 mg = 1 tab, Oral, every day at bedtime, # 30 tab, 0 Refill(s) Start Date: 04/05/21 Status: Ordered Problem List Condition Effective Dates Status Health Status Inform ant Abdominal pain in female(Confirmed) Active Acne(Confirmed) Active Anxiety(Confirmed) Active Intractable chronic migraine without aura(Confirmed) Active Chronic neck pain(Confirmed) Active Chronic pain(Confirmed) Active Chronic pain(Confirmed) Active Congenital biliary atresia(Confirmed) Active Bilateral conjunctivitis(Confirmed) Active Constipation(Confirmed) Active COVID-19(Confirmed) Active Difficulty sleeping(Confirmed) Active Rash(Confirmed) Active Gout(Confirmed) Active History of liver transplant(Confirmed) Active Hx of migraine headaches(Confirmed) Active Heart murmur(Confirmed) Active History of burning pain in leg(Confirmed) Active History of kidney transplant(Confirmed) Active Idiopathic thrombocytopenic purpura(Confirmed) Active Liver transplant disorder(Confirmed) Active Lumbar back pain(Confirmed) Active Migraine headache(Confirmed) Active Pain, joint, multiple sites(Confirmed) Active Right otitis externa(Confirmed) Active Numbness and tingling of rig ht arm(Confirmed) Active Chronic paronychia of finger(Confirmed) Active Thrombocytopenia(Confirmed) Active Itching of vulva(Confirmed) Active Intractable migraine(Confirmed) Active Lab test positive for detect ion of COVID-19 virus(Confirmed) Active Sprain of knee(Confirmed) Active Tachycardia(Confirmed) Active Tobacco use(Confirmed) Active Procedures Procedure Date Related Diagnosis Body Site Status Bladder washout 12/14/20 Completed Kidney transplant 05/13/20 Complet ed Tx - Liver transplantation 05/08/20 Completed delivery Complet ed cyst removal from breast Completed Hernia Completed liver transplant Complete d Vital Signs Most recent to oldest [Reference Range]: 1 2 3 Temperature Oral [35.8-37.3 Deg C] 36.7 Deg C (09/13/21 11:49 PM) Peripheral Pulse Rate [60-100 bpm] 91 bpm (09/13/21 11:49 PM) Heart Rate Monitored [60-100 bpm] 84 bpm (09/14/21 12:30 AM) 82 bpm (09/14/21 12:20 AM) Respiratory Rate [12-24 br/min] 20 br/min (09/14/21 12:30 AM) 20 br/min (09/14/21 12:20 AM) 20 br/min (09/13/21 11:49 PM) Blood Pressure [90-140/60-90 mmHg] 139/86mmHg (09/13/21 11:49 PM) Weight Dosing 157.00 kg (09/13/21 11:53 PM) Weight Estimated 157.00 kg (09/13/21 11:49 PM) Height/Length Dosing 73.000 cm (09/13/21 11:53 PM) Height/Length Estimated 73.000 cm (09/13/21 11:49 PM) Social History Social History Type Response Smoking Status 5-9 cigarettes (betw een 1/4 to 1/2 pack)/day in last 30 days entered on: 05/12/21 Sex Hospital Discharge Instructions Patient Education 09/14/2021 00:10:30 Sinusitis, Adult, [id number] Sinusitis, Adult Sinusitis is soreness and swelling (inflammation) of your sinuses. Sinuses are hollow spaces in thebones around your face. They are located: ??? Around your eyes. ??? In the middle of your forehead. ??? Behind your nose. ??? In your cheekbones. Your sinuses and nasal passages are lined with a fluid called mucus. Mucus drains out of your sinuses. Swelling can trap mucus in your sinuses. This lets germs (bacteria, virus, or fungus) grow, which leads to infection. Most of the time, this condition is caused by a virus. What are the causes? This condition is caused by: ??? Allergies. ??? Asthma. ??? Germs. ??? Things that block your nose or sinuses. ??? Growths in the nose (nasal polyps). ??? Chemicals or irritants in the air. ??? Fungus (rare). What increases the risk? You are more likely to develop this condition if: ??? You have a weak body defense system (immune system). ??? You do a lot of swimming or diving. ??? You use nasal sprays too much. ??? You smoke. What are the signs or symptoms? The main symptoms of this condition are pain and a feeling of pressure around the sinuses. Other symptoms include: ??? Stuffy nose (congestion). ??? Runny nose (drainage). ??? Swelling and warmth in the sinuses. ??? Headache. ??? Toothache. ??? A cough that may get worse at night. ??? Mucus that collects in the throat or the back of the nose (postnasal drip). ??? Being unable to smell and taste. ??? Being very tired (fatigue). ??? A fever. ??? Sore throat. ??? Bad breath. How is this diagnosed? This condition is diagnosed based on: ??? Your symptoms. ??? Your medical history. ??? A physical exam. ??? Tests to find out if your condition is short-term (acute) or long-term (chronic). Your doctor may: ??? Check your nose for growths (polyps). ??? Check your sinuses using a tool that has a light (endoscope). ??? Check for allergies or germs. ??? Do imaging tests, such as an MRI or CT scan. How is this treated? Treatment for this condition depends on the cause and whether it is short-term or long-term. ??? If caused by a virus, your symptoms should go away on their own within 10 days. You may be given medicines to relieve symptoms. They include: ??? Medicines that shrink swollen tissue in the nose. ??? Medicines that treat allergies (antihistamines). ??? A spray that treats swelling of the nostrils.? Rinses that help get rid of thick mucus in your nose (nasal saline washes). ??? If caused by bacteria, your doctor may wait to see if you will get better without treatment. You may be given antibiotic medicine if you have: ??? A very bad infection. ??? A weak body defense system. ??? If caused by growths in the nose, you may need to have surgery. Follow these instructions at home: Medicines ??? Take, use, or apply [id number] and prescription medicines only as told by your doctor. These may include nasal sprays. ??? If you were prescribed an antibiotic medicine, take it as told by your doctor. Do not stop taking the antibiotic even if you start to feel better. Hydrate and humidify ??? Drink enough water to keep your pee (urine) pale yellow. ??? Use a cool mist humidifier to keep the humidity level in your home above 50%. ??? Breathe in steam for 10???15 minutes, 3???4 times a day, or as told by your doctor. You can do this in the bathroom while a hot shower is running. ??? Try not to spend time in cool or dry air. Rest ??? Rest as much as you can. ??? Sleep with your head raised (elevated). ??? Make sure you get enough sleep each night. General instructions ??? Put a warm, moist washcloth on your face 3???4 times a day, or as often as told by your doctor.This will help with discomfort. ??? Wash your hands often with soap and water. If there is no soap and water, use hand nurse epidemiologist. ??? Do not smoke. Avoid being around people who are smoking (secondhand smoke). ??? Keep all follow-up visits as told by your doctor. This is important. Contact a doctor if: ??? You have a fever. ??? Your symptoms get worse. ??? Your symptoms do not get better within 10 days. Get help right away if: ??? You have a very bad headache. ??? You cannot stop throwing up (vomiting). ??? You have very bad pain or swelling around your face or eyes. ??? You have trouble seeing. ??? You feel confused. ??? Your neck is stiff. ??? You have trouble breathing. Summary ??? Sinusitis is swelling of your sinuses. Sinuses are hollow spaces in the bones around your face. ??? This condition is caused by tissues in your nose that become inflamed or swollen. This traps germs. These can lead to infection. ??? If you were prescribed an antibiotic medicine, take it as told by your doctor. Do not stop taking it even if you start to feel better. ??? Keep all follow-up visits as told by your doctor. This is important. This information is not intended to replace advice given to you by your health care provider. Make sure you discuss any questions you have with your health care provider. Document Revised: 08/06/2018 Document Reviewed: 08/06/2018 [employer] Patient Education ?? 2020 [employer]. 09/14/2021 00:10:25 Migraine Headache, [id number] Migraine Headache A migraine headache is a [...] these instructions at home: Medicines ??? Take idaa-pxl-lfhyodb and prescription medicines only as told by your doctor. ??? Ask your doctor if the medicine prescribed to you: ??? Requires you to avoid driving or using heavy machinery. ??? Can cause trouble pooping (constipation). You may need to take these steps to prevent or treat trouble pooping: ??? Drink enough fluid to keep your pee (urine) pale yellow. ??? Take [id number]-[id number] or prescription medicines. ??? Eat foods that [...] provider. Document Revised: 06/28/2019 Document Reviewed: 04/18/2019 [employer] Patient Education ?? 2020 [employer] Follow Up Care 09/13/2021 23:49:45 With:Hermes Ramirez MD Address: [address] [place] [address], [address] [place] [address]- When:1 week Care Team Personnel Name: Hermes Ramirez MD Address: [address] [place] [address], [address]
--- OUTSIDE RECORDS SUMMARY | 2024-03-20 11:33 | XMS_ITS | Continuity of Care Document ---
[facility] Organization [facility] [address] [place] [address]- Care Team Providers Care World Language Teacher Name Role Phone Hermes Ramirez Primary Care Physician Encounter [facility] [id number] Date(s): 02/26/24 - 02/26/24 [facility] [address] [place] [address]- Discharge Disposition: Home Allergies, Adverse Reactions, Alerts Substance Criticality Severity Reaction Reaction Severity Status codeine High criticality Severe Unknown Itching Active gentamicin High criticality Moderate Ac tive erythromycin Medication interaction Active azithromycin High criticality Severe Unknown Active aspirin High criticality Severe Medication interaction Active morphine 1 Low criticality Mild redness Itching Active Toradol High criticality Severe Kidney fail ure as a complication of care Active NSAIDs High criticality Severe Act luis miguel 1localized reaction at iv site Assessment and Plan Future Appointments Future Scheduled Tests Radiology* MG Mammo Diagnostic Bilateral w/ Chad 02/25/25 * US Breast Limited Left 02/25/25 * NM Lung Vent/Perf Imaging 02/12/24 Immunizations Given and Recorded Vaccine Date Status [...] Daily, # 30 tab, 11 Refill(s), Pharmacy: [place], [place], 157.48, cm, 01/04/23 15:03:00 CDT, Height/Length Dosing, 81.65, kg, 01/04/23 15:03:00 CDT, Weight Dosing Start Date: 01/11/23 Status: Ordered aspirin 81 mg oral delayed release tablet 81 mg = 1 tab, Oral, Daily, # 30 tab, 0 Refill(s) Start Date: 04/05/21 Status: Ordered azaTHIOprine 50 mg oral tablet 0 Refill(s) Start Date: 01/30/24 Status: Ordered Benadryl 25 mg oral capsule 50 mg = 2 cap, Oral, Once, 0 Refill(s) Start Date: 02/02/24 Status: Ordered Envarsus XR 1 mg oral tablet, extended release 0 Refill(s) Start Date: 01/30/24 Status: Ordered Envarsus XR 4 mg oral tablet, extended release 0 Refill(s) Start Date: 01/30/24 Status: Ordered gabapentin 300 mg oral capsule 600 mg = 2 cap, Oral, BID, # 120 cap, 2 Refill(s), Pharmacy: [facility], 157.5, cm,02/06/24 16:22:00 OXYGEN THERAPIST, Height, 89.91, kg, 02/06/24 16:28:00 OXYGEN THERAPIST, Weight Dosing Start Date: 02/07/24 Status: Ordered Gengraf 25 mg oral capsule [...] BID, # 60 cap, 11 Refill(s), Pharmacy: [facility] [place], 157.48, cm, 01/04/23 15:03:00 CDT, Height/Length Dosing, 81.65, kg, 01/04/23 15:03:00 CDT, Weight Dosing Start Date: 01/11/23 Status: Ordered nicotine 21 mg/24 hr transdermal film, extended release 1 patches, Transdermal, Daily, # 14 patches, 1 Refill(s), [facility]acy: [id number], 157.48, cm, 01/01/24 14:49:00 CDT, Height, 87.09, kg, 01/01/24 14:53:00 CDT, Weight Dosing Start Date: 01/01/24 Status: Ordered Nicotrol Inhaler 10 mg inhalation device See Instructions, 6-16 cartriges/day, # 1 EA, 2 Refill(s), Pharmacy: [id number], 157.48, cm, 08/29/23 14:22:00 CDT, Height, 88, kg, 08/29/23 14:27:00 CDT, Weight Dosing Start Date: 08/29/23 Status: Ordered pantoprazole 40 mg oral delayed release tablet 1 tab, Oral, Daily, # 90 tab, 0 Refill(s), Pharmacy: [id number], 157.48, cm, 06/07/23 16:07:00 CDT, Height, 89.36, kg, 06/19/23 15:32:00 CDT, Weight Dosing Start Date: 06/20/23 Status: Ordered Pepcid 20 mg oral tablet 20 mg = 1 tab, Oral, BID, 0 Refill(s) Start Date: 09/29/20 Status: Ordered predniSONE 5 mg oral tablet 5 mg = 1 tab, Oral, Daily, with food or milk, # 30 tab, 0 Refill(s) Start Date: 02/06/24 Status: Ordered sucralfate 1 g oral tablet 1 tab, Oral, QID, # 360 tab, 0 Refill(s), Pharmacy: [facility], 157.48, cm, 08/29/23 14:22:00 CDT, Height, 88, kg, 08/29/23 14:27:00 CDT, Weight Dosing Start Date: 09/05/23 Status: Ordered Tessalon Perles 100 mg oral capsule 100 mg = 1 cap, Oral, TID, PRN as needed for cough, # 21 cap, 0 Refill(s), [facility]: [id number], 157.48, cm, 02/12/24 8:34:00 OXYGEN THERAPIST, Height, 91.63, kg, 02/12/24 8:41:00 OXYGEN THERAPIST, Weight Dosing Start Date: 02/12/24 Stop Date: 02/19/24 Status: Ordered venlafaxine 37.5 mg oral capsule, extended release 37.5 mg = 1 cap, Oral, Daily, # 90 cap, 0 Refill(s), Pharmacy: [id number], 157.48, cm, 09/28/23 18:18:00 CDT, Height, 81.65, kg, 09/28/23 18:20:00 CDT, Weight Dosing Start Date: 11/22/23 Status: Ordered Problem List Condition Confirmation Course [...] biliary atresia Confirmed Active Constipation Confirmed Active D-dimer, elevated Confirmed Active Degenerative disc disease, cervical Confirmed Active Difficulty sleeping Confirmed Active Rhinovirus infection Confirmed Active Gout Confirmed Active History of liver transplant Confirmed Active Hx of migraine headaches Confirmed Active Heart murmur Confirmed Active History of burning pain in leg Confirmed Active History of fall Confirmed Active History of kidney transplant Confirmed Active Idiopathic thrombocytopenic purpura Confirmed Active Dental infection Confirmed Active Lumbar back pain Confirmed Active Migraine headache Confirmed Active Headache, chronic migraine without aura Confirmed Active Pain, joint, multiple sites Confirmed Active Pulmonary nodules Confirmed Active Cervicalgia Confirmed Active Obesity Confirmed Active Right knee pain Confirmed Active Pain of right scapula Confirmed Active Numbness and tingling of right arm Confirmed Active Chronic paronychia of finger Confirmed Active PUD (peptic ulcer disease) Confirmed Active Thrombocytopenia Confirmed Active Headache, migraine, intractable Confirmed Active Right shoulder pain Confirmed Active Hip sprain Confirmed Active 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 Foraminal stenosis of cervical region Confirmed Active Edema Confirmed Active Tachycardia Confirmed Active Tobacco use Confirmed Active Weight gain Confirmed Active 1had skin tag in groin removed that had this cancer Procedures Procedure Date Related Diagnosis Body Site Status Mammogram 1, 2 08/24/23 Completed Screening Pap Smear; Allison ramirez, Preparing And Conveyance Of Cervical/Vaginal Smear To Laboratory 3 07/2022 Completed Examining eye 2021 Completed Bladder washout 12/14/20 Completed Kidney transplant 05/13/20 Complet ed Tx - Liver transplantation 05/08/20 Completed delivery Complet ed cyst removal from breast Completed Hernia Completed liver transplant Complete d 03/09/23 repeat in 6 months 2normal 3normal Social History Social History Type Response Tobacco Current everyday tob acco user Tobacco Use:. Sex Sex Representation Female (finding) Patient Care team information Care Team Personnel Name: Jessee Jones PROVIDER RELATIONS CONSULTANT Position: Physician Member Role: Nurse Practitioner Address: [address] [place] [address], [address] Name: Latoya Marquez PROVIDER RELATIONS CONSULTANT Position: Physician Member Role: Nurse Practitioner Address: [address] [place] [address] Name: Leonila Gonzalez PROVIDER RELATIONS CONSULTANT Position: Physician Member Role: Nurse Practitioner Address: [address] [place] [address] Name: Beth Brandt PROVIDER RELATIONS CONSULTANT Position: Physician Member Role: Nurse Practitioner Address: [address] [place] [address] Name: Hemres Ramirez MD Position: Physician Member Role: Informed Provider Address: [address] [facility], [address] Name: Pillo Moe PROVIDER RELATIONS CONSULTANT Position: Physician Member Role: Nurse Practitioner Address: [address] [place] [address], [address] [facility] Care Team Related Persons Name: STACIA JONES Name: ROBYN JAMA Name: NAIF CHOI Name: MADY CHEN Name: MADY CHEN Insurance Providers Guarantor name: MISHA JACKSON Health Plan Information #: 1 Payer: [employer] Member Number: NA Policy Number: NA Health Plan Information #: 2 Payer: MISC Workers Comp Member Number: NA Policy Number: NA
--- OUTSIDE RECORDS SUMMARY | 2024-03-20 11:33 | XMS_ITS | Continuity of Care Document ---
Author Organization [facility] Address [address] [place] [address] Care Team Providers Care Slasher Machine Operator Name Role Phone Hermes Ramirez Primary Care Physician Encounter ONOFREEver [id number] Date(s): 02/27/22 - 02/27/[address] [id number] Encounter Diagnosis Hx of migraine headaches(Discharge Diagnosis) - 02/27/22 Discharge Disposition: Home or Self Care Attending Physician: Jesus Khan MD Admitting Physician: Jesus Khan MD Allergies, Adverse Reactions, Alerts Substance Reaction Severity Status codeine Unknown Itching Severe Active gentamicin Moderate Active erythromycin Medication interaction Activ e azithromycin Unknown Severe Active aspirin Medication interaction Severe Activ e Toradol Kidney failure as a complication of care Severe Active NSAIDs Severe Active Assessment and Plan Future Scheduled Tests Laboratory* Comprehensive Metabolic Panel 02/18/22 Immunizations Given and Recorded Vaccine Date Status [...] wheezing, # 6.7 g, 0 Refill(s), Pharmacy: [facility] [place], [place], 73, cm, 09/13/21 23:53:00 CDT, Height/Length Dosing, 157, kg, 06/27/22 23:53:00 CDT, Weight Dosing Start Date: 09/14/21 Status: Ordered amLODIPine 10 mg oral tablet TAKE ONE TABLET DAILY Start Date: 12/18/20 Status: Ordered aspirin 81 mg oral delayed release tablet 81 mg = 1 tab, Oral, Daily, # 30 tab, 0 Refill(s) Start Date: 04/05/21 Status: Ordered Benadryl 50 mg = 1 mL, IM, Once, 0 Refill(s) Start Date: 02/07/22 Status: Ordered buPROPion 100 mg/12 hours (SR) oral tablet, extended release TAKE ONE TABLET DAILY. swallow whole Start Date: 02/14/22 Status: Ordered butalbital/acetaminophen/caffeine 50 mg-300 mg-40 mg oral capsule 1 cap, Oral, every 4 hr, PRN as needed, # 12 cap, 0 Refill(s), Pharmacy: [facility] [place], [place], [address], cm, 11/04/21 20:02:00 CDT, Height/Length [...] 18:45:00CST, Height/Length Dosing, 72.57, kg, 02/07/22 18:45:00 BENCH LATHE OPERATOR, Weight Dosing Start Date: 02/13/22 Status: Ordered morphine 4 mg/mL preservative-free injectable solution 2 mg = 0.5 mL, IM, Once, 0 Refill(s) Start Date: 02/07/22 Status: Ordered Pepcid 20 mg oral tablet 20 mg = 1 tab, Oral, BID, 0 Refill(s) Start Date: 09/29/20 Status: Ordered Phenergan 25 mg = 1 mL, IM, Once, 0 Refill(s) Start Date: 02/07/22 Status: Ordered Phenergan 25 mg oral tablet 25 mg = 1 tab, Oral, every 6 hr, PRN as needed for nausea/vomiting, # 20 tab, 0 Refill(s), Pharmacy: [facility] [place], [place], [address], cm, 09/29/21 23:03:00 CDT, Height/Length Dosing, 77, kg, 09/29/21 23:03:00 CDT, Weight Dosing Start Date: 09/29/21 Stop Date: 10/04/21 Status: Ordered tacrolimus 1 mg oral capsule, [...] Effective Dates Status H ealth Status Informant Abdominal pain in female Confirmed Active Acne Confirmed Active Anxiety Confirmed Active Intractable chronic migraine without aura Confirmed Active Chronic neck pain Confirmed Active Chronic pain Confirmed Active Chronic pain Confirmed Active Congenital biliary atresia Confirmed Active Bilateral conjunctivitis Confirmed Active Constipation Confirmed Active Degenerative disc disease, cervical Confirmed Active Difficulty sleeping Confirmed Active Rash Confirmed Active Fever Confirmed Active Flank pain Confirmed Active Gout Confirmed Active History of liver transplant Confirmed Active Hx of migraine headaches Confirmed Active Heart murmur Confirmed Active History of burning pain in leg Confirmed Active History of kidney transplant Confirmed Active Idiopathic thrombocytopenic purpura Confirmed Active Liver transplant disorder Confirmed Active Lumbar back pain Confirmed Active Migraine headache Confirmed Active Pain, joint, multiple sites Confirmed Active Cervicalgia Confirmed Active Otalgia of right ear Confirmed Active Right otitis externa Confirmed Active Ear drainage right Confirmed Active Numbness and tingling of right arm Confirmed Active Chronic paronychia of finger Confirmed Active Health education/counseling Confirmed Active Thrombocytopenia Confirmed Active Itching of vulva Confirmed Active Intractable migraine Confirmed Active Headache, migraine, intractable Confirmed Active Lab test positive for detection of COVID-19 virus Confirmed Active Sprain of knee Confirmed Active Foraminal stenosis of cervical region Confirmed Active Tachycardia Confirmed Active Tobacco use Confirmed Active Upper respiratory infection Confirmed Active Urinary tract infection in female Confirmed Active Procedures Procedure Date Related Diagnosis Body Site Status Bladder washout 12/14/20 Completed Kidney transplant 05/13/20 Complet ed Tx - Liver transplantation 05/08/20 Completed delivery Complet ed cyst removal from breast Completed Hernia Completed liver transplant Complete d Vital Signs Most recent to oldest [Reference Range]: 1 Temperature Oral [35.8-37.3 Deg C] 37.1 Deg C (02/27/22 11:00 PM) Peripheral Pulse Rate [60-100 bpm] 111 b pm *HI* (02/27/22 11:00 PM) Respiratory Rate [12-24 br/min] 18 br/mi n (02/27/22 11:00 PM) Blood Pressure [90-140/60-90 mmHg] 158/9 1mmHg *HI* (02/27/22 11:00 PM) Weight Dosing 75.00 kg (02/27/22 11:29 PM) Weight Estimated 75.00 kg (02/27/22 11:00 PM) Height/Length Dosing 157.000 cm (02/27/22 11:29 PM) Height/Length Estimated 157.000 cm (02/27/22 11:00 PM) Social History Social History Type Response Tobacco Current everyday tob acco user Tobacco Use:. Sex Hospital Discharge Instructions Patient Education 02/27/2022 23:44:07 Chronic Migraine Headache, [id number] Chronic Migraine Headache A migraine headache is throbbing pain that is usually on one side of the head. Migraines that keep coming back are called recurring migraines. A migraine is called a chronic migraine if it happens atleast 15 days in a month for more than 3 months. Talk with your doctor about what things may bring on (trigger) your migraines. What are the causes? The exact cause of this condition is not known. A migraine may be caused when nerves in the brain become irritated and release chemicals that cause irritation and swelling (inflammation) of blood vessels. The irritation and swelling of the blood vessels causes pain. Migraines may be brought on or caused by: ??? Smoking. ??? Foods and drinks, such as: ??? Cheese. ??? Chocolate. ??? Alcohol. ??? Caffeine. ??? Certain substances in some foods or drinks. ??? Some medicines. Other things that may bring on a migraine include: ??? Periods, for women. ??? Stress. ??? Not enough sleep or too much sleep. ??? Feeling very tired. ??? Bright lights or loud noises. ??? Smells ??? Weather changes and being at high altitude. What increases the risk? The following factors may make you more likely to have chronic migraine: ??? Having migraines or family members who have them. ??? Being very sad (depressed) or feeling worried or nervous (anxious). ??? Taking a lot of pain medicine. ??? Having problems sleeping. ??? Having heart disease, diabetes, or being very overweight (obese). What are the signs or symptoms? Symptoms of this condition include: ??? Pain that feels like it throbs. ??? Pain that is usually only on one side of the head. In some cases, the pain may be on both sidesof the head or around the head or neck. ??? Very bad pain that keeps you from doing daily activities. ??? Pain that gets worse with activity. ??? Feeling like you may vomit (feeling nauseous) or vomiting. ??? Pain when you are around bright lights, loud noises, or activity. ??? Being sensitive to bright lights, loud noises, or smells. ??? Feeling dizzy. How is this treated? This condition is treated with: ??? Medicines. These help to: ??? Lessen pain and the feeling like you may vomit. ??? Prevent migraines. ??? Changes to your diet or sleep. ??? Therapy. This might include: ??? Relaxation training. ??? Biofeedback. This is a treatment that teaches you to relax, use your brain to lower your heart rate, and control your breathing. ??? Cognitive behavioral therapy (CBT). This therapy helps you set goals and follow up on the changes that you make. ??? Acupuncture. ??? Using a device that provides electrical stimulation to your nerves, which can help take away pain. ??? Surgery, if the other treatments do not work. Follow these instructions at home: Medicines ??? Take [id number] and prescription medicines only as told by your doctor. ??? Ask your doctor if the medicine prescribed to you requires you to avoid driving or using machinery. Lifestyle ??? Do not use any products that contain nicotine or tobacco, such as cigarettes, e-cigarettes, andchewing tobacco. If you need help quitting, ask your doctor. ??? Do not drink alcohol. ??? Get 7???9 hours of sleep each night. ??? Lower the stress in your life. Ask your doctor about ways to do this. ??? Stay at a healthy weight. Talk with your doctor if you need help losing weight. ??? Get regular exercise. General instructions ??? Keep a journal to find out if certain things bring on migraines. For example, write down: ??? What you eat and drink. ??? How much sleep you get. ??? Any change to your diet or medicines. ??? Lie down in a dark, quiet room when you have a migraine. ??? Try placing a cool towel over your head when you have a migraine. ??? Keep lights dim if bright lights bother you or make your migraines worse. ??? Keep all follow-up visits as told by your doctor. This is important. Where to find more information ??? Coalition for Headache and Migraine Patients (CHAMP): headachemigraine.org ??? [place] Migraine Foundation: americanmigrainefoundation.org ??? National Headache Foundation: headaches.org Contact a doctor if: ??? Medicine does not help your migraine. ??? Your pain keeps coming back. Get help right away if: ??? Your migraine becomes really bad and medicine does not help. ??? You have a stiff neck and fever. ??? You have trouble seeing. ??? Your muscles are weak or you lose control of them. ??? You lose your balance or have trouble walking. ??? You feel like you will faint or you faint. ??? You start having sudden, very bad headaches. ??? You have a seizure. Summary ??? A migraine headache is very bad, throbbing pain that is usually on one side of the head. ??? A chronic migraine is a migraine that happens 15 days in a month for more than 3 months. ??? Talk with your doctor about what things may bring on your migraines. ??? Lie down in a dark, quiet room when you have a migraine. ??? Keep a journal. This can help you find out if certain things make you have migraines. This information is not intended to replace advice given to you by your health care provider. Make sure you discuss any questions you have with your health care provider. Document Revised: 04/22/2020 Document Reviewed: 04/22/2020 Elsevier Patient Education ?? 2021 [employer] Follow Up Care 02/27/2022 23:00:56 With:Hermes Ramirez MD Address: [address] [place] [address], [address] [place] [address]- When:1 week Comments:Continue other home medications.?? Return to ED if symptoms worsen. Physician Emergency department Note * Jesus Khan MD: PERFORM Event Display: ED Note Physician Authored Date: [id number] MISHA JACKSON :1980 Age:41 years Sex:Female Visit Date:02/27/2022 Primary Care Physician: Hermes Ramirez MD Basic Information Time Seen: Jesus Khan MD / 02/27/2022 23:23 Chief Complaint pt states increased worsening migraine with nausea caused by increased antirejection medications. ??pt was dc'd from [facility] tu with increased dose and addition of prednisone History Of Present Illness: Patient has history of intractable migraine headaches.?? Comes frequently to the ER??with??migraineheadaches.?? Also has history of??liver transplant and??renal transplant.?? Patient was just discharged??recently from [facility] in [place]??where she was seen for her ??liver transplant.??Patient states that??had to increase??immunosuppressive hours??and also??increase his steroids;??gradually they are going to taper it down.?? Patient mention she has an appointment to see??neurologist on March 09, 2022. Review of Systems: Constitutional:?No??fevers,?No??chills,?No??sweats.?? Migraine headache Eye:?No??recent visual problems ENT:?No??ear pain,?No??nasal congestion,?No??sore throat Respiratory:?No??shortness of breath,?No??cough Cardiovascular:?No??Chest pain,?No??palpitations,?No??syncope Gastrointestinal:?Nonausea,?No??vomiting,?No??diarrhea Genitourinary:?No??hematuria Clemente/Lymph:?No??bruising tendency,?No??swollen lymph glands Endocrine:?No??excessive thirst,??No??excessive hunger Musculoskeletal:??No??back pain,??No??neck pain,??No??joint pain,??No??muscle pain,??No??decreased range of motion Integumentary:?No??rash,?No??pruritus,?No??abrasions Neurologic: Alert & oriented X 4 Psychiatric:?No??anxiety,?No??depression Physical Exam Vitals & Measurements T:??37.1?C ??(Oral)?? HR:??111??(Peripheral)?? RR:??18?? BP:??158/91?? SpO2:??100%?? HT:??157.000??cm?? WT:??75.00??kg??(Estimated)?? Pain Score:??8?? O2 Therapy:??Room air?? General: Alert and oriented, well nourished,?No??acute distress Eye: PERRL, EOMI,?Normal??conjunctiva HENT: Normocephalic, clear tympanic membranes,?Normal?? hearing, moist oral mucosa,?No??scleral icterus,?No??sinus tenderness Neck: Supple, non-tender,?No??carotid bruits,?No??JVD,?No??lymphadenopathy Lungs: Clear to auscultation and percussion,?Non-labored?? respiration Heart:?Normal?? rate,?Regular??rhythm,?No??murmur,?No??gallop,?No??edema Breast:?No??lumps,?No??bumps,?No??scars,?Normal?? nipples Abdomen: Soft, non-tender, non-distended,?Normal?? bowel sounds,?No??masses Musculoskeletal:?Normal?? range of motion and strength,?No??tenderness,?No??swelling Skin: Skin is warm, dry and pink,?No??rashes,?No??lesions Neurologic: Awake, alert and oriented X4, CN II-XII intact Psychiatric: Cooperative, appropriate mood and affect Medical Decision Making: Phenergan 25 mg IM. ??Benadryl 50 mg IM.?? Morphine 2 mg IM. Procedure No Qualifying Data Assessment/Plan 1.??Hx of migraine headaches??Z86.69 Orders: Benadryl, 50 mg = 1 mL, IM, Injection, Once, First Dose: 02/27/22 23:34:00 BENCH LATHE OPERATOR, Stop Date: 02/27/2223:34:00 BENCH LATHE OPERATOR, Physician Stop morphine, 2 mg = 0.5 mL, IM, Injection, Once, First Dose: 02/27/22 23:36:00 BENCH LATHE OPERATOR, Stop Date: 02/27/22 23:36:00 BENCH LATHE OPERATOR, Physician Stop Phenergan, 25 mg = 1 mL, IM, Injection, Once, First Dose: 02/27/22 23:33:00 BENCH LATHE OPERATOR, Stop Date: 02/27/22 23:33:00 BENCH LATHE OPERATOR, Physician Stop Intractable migraine headaches.?? Follow-up with PCP. Patient Discharge Condition Stable Discharge Disposition Discharge home Patient Education Chronic Migraine Headache, [id number] Follow Up With When Contact Information Hermes Ramirez MD Within 1 week [address] [facility], [address] [place] [address]- Additional Instructions: Continue other home medications.?? Return to ED if symptoms worsen. Medication Reconciliation Unchanged albuterol (albuterol 90 mcg/inh aerosol inhaler)1 [...] 4 hours as needed. Refills: 0. ?? diphenhydrAMINE (Benadryl)50 Milligrams Intramuscular (in a muscle) once. ?? famotidine (Pepcid 20 mg oral tablet)1 [...] a day. Refills: 3. ?? morphine (morphine 4 mg/mL preservative-free injectable solution)0.5 Milliliters Intramuscular (in a muscle) once. ?? promethazine (Phenergan 25 mg oral tablet)1 tab Oral (given by mouth) every 6 hours as needed as needed for nausea/vomiting for 5 Days. Refills: 0. ?? promethazine (Phenergan)25 Milligrams Intramuscular (in a muscle) once. ?? tacrolimus (tacrolimus 1 mg oral capsule, extended release)3 Capsules Oral (given by mouth) every day. ?? topiramate (Topamax 25 mg oral tablet)2 tab Oral (given by mouth) 2 times a day. ?? venlafaxine (venlafaxine 37.5 mg oral capsule, extended release)2 Capsules Oral (given by mouth) every day. Problem List/Past Medical History Ongoing Abdominal pain in female Acne Anxiety Bilateral conjunctivitis Cervicalgia Chronic neck pain Chronic pain Chronic pain Chronic paronychia of finger Congenital biliary atresia Constipation COVID-19 Degenerative disc disease, cervical Difficulty sleeping Ear drainage right Fever Flank pain Foraminal stenosis of cervical region Gout Headache, migraine, intractable Health education/counseling Heart murmur History of burning pain in leg History of kidney transplant History of liver transplant Hx of migraine headaches Idiopathic thrombocytopenic purpura Intractable chronic migraine without aura Intractable migraine Itching of vulva Lab test positive for detection of COVID-19 virus Liver transplant disorder Lumbar back pain Migraine headache Numbness and tingling of right arm Otalgia of right ear Pain, joint, multiple sites Rash Right otitis externa Sprain of knee Tachycardia Thrombocytopenia Tobacco use Upper respiratory infection Urinary tract infection in female Historical Acute dehydration Acute urinary tract infection Chronic kidney disease, stage IV (severe) Conjunctivitis, left eye Disease caused by 2019 novel coronavirus Edema Influenza A Otitis externa of right ear Recurrent streptococcal tonsillitis Yellow eyes Procedure/Surgical History ???Bladder washout (12/14/2020)???Kidney transplant (05/13/2020)???Tx - Liver transplantation (05/08/2020)??? delivery???cyst removal from breast???Hernia???liver transplant Allergies NSAIDs Toradol??(Kidney failure as a complication of care) aspirin??(Medication interaction) azithromycin??(Unknown) codeine??(Unknown, Itching) gentamicin erythromycin??(Medication interaction) Social History Alcohol Never Electronic Cigarette/Vaping Electronic Cigarette Use: Never. Substance Use Never Tobacco Current everyday tobacco user Tobacco Use:. Family History Cancer: Mother. Attending Attestation Follow-up with PCP Electronically Signed on 02/27/22 11:44 PM Jesus Khan MD Patient Care team information Personnel Name: Hermes Ramirez MD Address: Address: [facility], [address] [place] [address]
--- OUTSIDE RECORDS SUMMARY | 2024-03-20 11:33 | XMS_ITS | Continuity of Care Document ---
Author Organization formerly [facility] Address [address] [place] [address] Care Team Providers Care Carpet Tile Layer Name Role Phone Hermes Ramirez Primary Care Physician [phone] Encounter ROCHELLE MARILUZ [id number] Date(s): 05/25/22 - 05/26/[address] [address] [place] Encounter Diagnosis Headache, migraine, intractable(Discharge Diagnosis) - 05/25/22 Acute viral syndrome(Discharge Diagnosis) - 05/25/22 Discharge Disposition: Home or Self Care Attending Physician: Felicia Roach MD Admitting Physician: Felicia Roach MD Allergies, Adverse Reactions, Alerts Substance Reaction Severity Status codeine Unknown Itching Severe Active gentamicin Moderate Active erythromycin Medication interaction Activ e azithromycin Unknown Severe Active aspirin Medication interaction Severe Activ e Toradol Kidney failure as a complication of care Severe Active NSAIDs Severe Active Assessment and Plan Diagnostic Tests Pending * Blood Culture 05/25/22 * Blood Culture 05/25/22 Future Scheduled Tests Laboratory* Giardia lamblia Ag, EIA 04/07/22 * Cryptosporidium EIA 04/07/22 * Stool Culture 04/07/22 * Clostridium difficile Amp 04/07/22 * Ova + Parasite Exam 04/07/22 Functional Status 05/25/22 Family Member Travel History No recent t ravel Recent Travel History No recent travel Other exposure to Infectious Disease Non e [...] wheezing, # 6.7 g, 0 Refill(s), Pharmacy: [place], [place], [address], cm, 09/13/21 23:53:00 CDT, Height/Length [...] 0 Refill(s) Start Date: 05/05/22 Status: Ordered Benadryl 50 mg = 1 mL, IM, Once, 0 Refill(s) Start Date: 05/18/22 Status: Ordered buPROPion 100 mg/12 hours (SR) oral tablet, extended release TAKE ONE TABLET DAILY. swallow whole Start Date: 02/14/22 Status: Ordered butalbital/acetaminophen/caffeine 50 mg-300 mg-40 mg oral capsule 1 cap, Oral, every 4 hr, PRN as needed, # 12 cap, 0 Refill(s), Pharmacy: [place], [place], [address], cm, 11/04/21 20:02:00 CDT, Height/Length [...] BID, # 180 tab, 3 Refill(s), Pharmacy: [facility], 157.48, cm, 02/07/22 18:45:00CST, Height/Length Dosing, 72.57, kg, 02/07/22 18:45:00 IV THERAPY NURSE, Weight Dosing Start Date: 02/13/22 Status: Ordered morphine 2 mg/mL preservative-free injectable solution 2 mg = 1 mL, IM, Once, 0 Refill(s) Start Date: 05/05/22 Status: Ordered oseltamivir 30 mg oral capsule 30 mg = 1 cap, Oral, BID, # 10 cap, 0 Refill(s), Pharmacy: [place], [place], [address], cm, 03/16/22 18:01:00 IV THERAPY NURSE, Height/Length Dosing, 77.11, kg, 03/16/22 18:01:00 IV THERAPY NURSE, Weight Dosing Start Date: 03/16/22 Status: Ordered Pepcid 20 mg oral tablet 20 mg = 1 tab, Oral, BID, 0 Refill(s) Start Date: 09/29/20 Status: Ordered Phenergan 25 mg = 1 mL, IM, Once, 0 Refill(s) Start Date: 05/18/22 Status: Ordered Phenergan 25 mg oral tablet 25 mg = 1 tab, Oral, every 6 hr, PRN as needed for nausea/vomiting, # 20 tab, 0 Refill(s), Pharmacy: [place], [place], [address], cm, 09/29/21 23:03:00 CDT, Height/Length [...] Informant Acne Confirmed Active Anxiety Confirmed Active Chronic neck pain Confirmed Active [...] Tachycardia Confirmed Active Tobacco use Confirmed Active Procedures Procedure Date Related Diagnosis Body Site Status Bladder washout 12/14/20 Completed Kidney transplant 05/13/20 Complet ed Tx - Liver transplantation 05/08/20 Completed delivery Complet ed cyst removal from breast Completed Hernia Completed liver transplant Complete d Results Laboratory List Name Date Respiratory Panel 2.1 ([facility]) 05/26/22 Test Urine Qual 05/25/22 Urinalysis with Culture if Indicated 05/25 .Urine Volume 05/25/22 Urinalysis Microscopic 05/25/22 CBC w/ Diff 05/25/22 Comprehensive Metabolic Panel (CMP) Lactic Acid 05/25/22 Automated Diff 05/25/22 Most recent to oldest [Reference Range]: 1 WBC [4.0-11.5 K/mcL] 4.6 K/mcL (05/25/22 10:14 PM) RBC [4.20-5.40 x10^6/mcL] 3.81 x10^6/mcL *LOW* (05/25/22 10:14 PM) Neutro Auto 67.3 % *NA* (05/25/22 10:14 PM) Lymph Auto 24.1 % *NA* (05/25/22 10:14 PM) Marathon Auto 5.0 % *NA* (05/25/22 10:14 PM) Basophil Auto 0.2 % *NA* (05/25/22 10:14 PM) BUN [7-18 mg/dL] 12 mg/dL (05/25/22 10:14 PM) UA Color Yellow (05/25/22 10:27 PM) UA WBC [0-5] 0-5 (05/25/22 10:27 PM) Glucose Level [70-110 mg/dL] 87 mg/dL (05/25/22 10:14 PM) Potassium Level [3.5-5.1 mmol/L] 3.6 mmo l/L (05/25/22 10:14 PM) Baso Absolute [0.0-0.1 x10^3/mcL] 0.0 x1 0^3/mcL (05/25/22 10:14 PM) MCV [78.0-100.0 fL] 94.8 fL (05/25/22 10:14 PM) UA Urobilinogen [Normal mg/dL] Normal mg /dL (05/25/22 10:27 PM) UA Bili [Negative mg/dL] Negative mg/dL (05/25/22 10:27 PM) UA Ketones [Negative mg/dL] Negative mg/ dL (05/25/22 10:27 PM) AST [15-37 unit/L] 80 unit/L *HI* (05/25/22 10:14 PM) ALT [12-78 unit/L] 260 unit/L *HI* (05/25/22 10:14 PM) MCHC [29.0-37.5 g/dL] 33.0 g/dL (05/25/22 10:14 PM) Sodium Level [136-145 mmol/L] 144 mmol/L (05/25/22 10:14 PM) UA RBC [0-3] 0-3 (05/25/22 10:27 PM) UA Leuk Est [Negative Guille/mcL] Negative Guille/mcL (05/25/22 10:27 PM) Lymph Absolute [0.8-5.8 x10^3/mcL] 1.1 x 10^3/mcL (05/25/22 10:14 PM) UA Nitrite [Negative] Negative (05/25/22 10:27 PM) UA Glucose [Normal mg/dL] Normal mg/dL (05/25/22 10:27 PM) Hct [36.0-48.0 %] 36.1 % (05/25/22 10:14 PM) UA Bacteria [None Seen] Occasional *ABN* (05/25/22 10:27 PM) Calcium Level [8.5-10.1 mg/dL] 8.9 mg/dL (05/25/22 10:14 PM) Marathon Absolute [0.1-1.5 x10^3/mcL] 0.2 x1 0^3/mcL (05/25/22 10:14 PM) Albumin Level [3.4-5.0 g/dL] 3.2 g/dL *LOW* (05/25/22 10:14 PM) Protein Total [6.4-8.2 g/dL] 7.2 g/dL (05/25/22 10:14 PM) UA Protein [Negative mg/dL] Negative mg/ dL (05/25/22 10:27 PM) MCH [27.0-34.0 pg] 31.2 pg (05/25/22 10:14 PM) Neutro Absolute [1.5-8.1 x10^3/mcL] 3.1 x10^3/mcL (05/25/22 10:14 PM) Bilirubin Total [0.0-1.0 mg/dL] 0.5 mg/d L (05/25/22 10:14 PM) Hgb [12.0-16.0 g/dL] 11.9 g/dL *LOW* (05/25/22 10:14 PM) Alk Phos [46-130 unit/L] 463 unit/L *HI* (05/25/22 10:14 PM) UA Blood [Negative Rocael/mcL] Negative Rocael /mcL (05/25/22 10:27 PM) MPV [6.0-10.0 fL] 10.7 fL *HI* (05/25/22 10:14 PM) UA Spec Grav 1.005 (05/25/22 10:27 PM) Platelets [150-450 K/mcL] 114 K/mcL *LOW* (05/25/22 10:14 PM) CO2 [21-32 mmol/L] 22 mmol/L (05/25/22 10:14 PM) Eos Absolute [0.0-0.5 x10^3/mcL] 0.1 x10 ^3/mcL (05/25/22 10:14 PM) Lactic Acid Lvl [0.4-2.0 mmol/L] 1.0 mmo l/L (05/25/22 10:14 PM) UA Squam Epithelial [None Seen] Occasion al (05/25/22 10:27 PM) UA pH [5.0-9.0] 6.0 (05/25/22 10:27 PM) eGFR Non-AA 44 *NA* (05/25/22 10:14 PM) eGFR AA 53 *NA* (05/25/22 10:14 PM) UA Appear [Clear] Clear (05/25/22 10:27 PM) Chloride Level [97-107 mmol/L] 110 mmol/ L *HI* (05/25/22 10:14 PM) RDW-CV [11.5-15.0 %] 12.5 % (05/25/22 10:14 PM) Adenovirus RespP-BFire [Not Detected] No t Detected (05/26/22 12:16 AM) Bordetella parapertussis RespP-BFire [No t Detected] Not Detected (05/26/22 12:16 AM) Bordetella pertussis RespP-BFire [Not De tected] Not Detected (05/26/22 12:16 AM) Chlamydophila pneumoniae RespP-BFire [No t Detected] Not Detected (05/26/22 12:16 AM) Coronavirus 229E (Not COVID-19) RP-BFire [Not Detected] Not Detected (05/26/22 12:16 AM) Coronavirus HKU1 (Not COVID-19) RP-BFire [Not Detected] Not Detected (05/26/22 12:16 AM) Coronavirus NL63 (Not COVID-19) RP-BFire [Not Detected] Not Detected (05/26/22 12:16 AM) Coronavirus OC43 (Not COVID-19) RP-BFire [Not Detected] Not Detected (05/26/22 12:16 AM) Human Metapneumonovirus RespP-BFire [Not Detected] Not Detected (05/26/22 12:16 AM) Human Rhinovirus/Enterovirus RespP-BFir [Not Detected] Not Detected (05/26/22 12:16 AM) Influenza A (no subtype) RespP-BFire [No t Detected] Not Detected (05/26/22 12:16 AM) Influenza A RespP-BFire [Not Detected] N ot Detected (05/26/22 12:16 AM) Influenza B RespP-BFire [Not Detected] N ot Detected (05/26/22 12:16 AM) Mycomplasma pneumoniae RespP-BFire [Not Detected] Not Detected (05/26/22 12:16 AM) Parainfluenza Virus 1 RespP-BFire [Not D etected] Not Detected (05/26/22 12:16 AM) Parainfluenza Virus 2 RespP-BFire [Not D etected] Not Detected (05/26/22 12:16 AM) Parainfluenza Virus 3 RespP-BFire [Not D etected] Not Detected (05/26/22 12:16 AM) Parainfluenza Virus 4 RespP-BFire [Not D etected] Not Detected (05/26/22 12:16 AM) Respiratory Syncytial Virus RespP-BFire [Not Detected] Not Detected (05/26/22 12:16 AM) Imm Gran Absolute [0.0-0.1 x10^3/mcL] 0. 0 x10^3/mcL (05/25/22 10:14 PM) Imm Gran Auto 0.4 % *NA* (05/25/22 10:14 PM) NRBC Auto 0.0 % *NA* (05/25/22 10:14 PM) NRBC Absolute [0.0-0.0 x10^3/mcL] 0.0 x1 0^3/mcL (05/25/22 10:14 PM) UA Culture Ind?. Not Indicated (05/25/22 10:27 PM) Urine Srce Clean Catch (05/25/22 10:27 PM) Urine Volume 12 mL (05/25/22 10:27 PM) Creatinine Level [0.60-1.30 mg/dL] 1.42 mg/dL *HI* (05/25/22 10:14 PM) SARS-CoV-2 (COVID-19) RP-BFire [Not Dete cted] Not Detected (05/26/22 12:16 AM) Employed in healthcare? Unknown *NA* (05/26/22 12:16 AM) Symptomatic as defined by CDC? Unknown *NA* (05/26/22 12:16 AM) Hospitalized due to COVID-19? Unknown *NA* (05/26/22 12:16 AM) In ICU? No *NA* (05/26/22 12:16 AM) Group care resident? No *NA* (05/26/22 12:16 AM) status? Not *NA* (05/26/22 12:16 AM) Anion Gap [5-15 mmol/L] 16 mmol/L *HI* (05/25/22 10:14 PM) Eos, Auto 3.0 % *NA* (05/25/22 10:14 PM) U hCG Ql [Negative] Negative (05/25/22 10:27 PM) Vital Signs Most recent to oldest [Reference Range]: 1 2 Temperature Oral [35.8-37.3 Deg C] 36.8 Deg C (05/25/22 8:18 PM) Peripheral Pulse Rate [60-100 bpm] 77 bp m (05/26/22 12:55 AM) 101 bpm *HI* (05/25/22 8:18 PM) Respiratory Rate [12-24 br/min] 18 br/mi n (05/26/22 12:55 AM) 18 br/min (05/25/22 8:18 PM) Blood Pressure [90-140/60-90 mmHg] 128/7 4mmHg (05/26/22 12:55 AM) 141/95mmHg *HI* (05/25/22 8:18 PM) Weight Dosing 77.11 kg (05/26/22 2:43 AM) Weight Estimated 77.11 kg (05/25/22 8:18 PM) Height/Length Dosing 157.480 cm (05/26/22 2:43 AM) Height/Length Estimated 157.480 cm (05/25/22 8:18 PM) Social History Social History Type Response Tobacco Current everyday tob acco user Tobacco Use:. Sex Hospital Discharge Instructions Patient Education 05/26/2022 00:21:19 Chronic Migraine Headache, [id number] Chronic Migraine Headache A migraine headache is [...] these instructions at home: Medicines ??? Take [id number] and prescription medicines only as told by [...] Headache and Migraine Patients (CHAMP): headachemigraine.org ??? [place] Migraine Foundation: [email or web address].org ??? National Headache Foundation: [...] provider. Document Revised: 04/22/2020 Document Reviewed: 04/22/2020 Starteed Patient Education ?? 2021 [employer]. Follow Up Care 05/25/2022 20:18:50 With:Follow up with specialist Address: When:3 to 5 days Comments:Follow-up with your PCP??with regards to your liver and renal transplant??monitoring With:Follow up with primary care provider Address: When:5 to 7 days Physician Emergency department Note * Felicia Roach MD: PERFORM Event Display: ED Note Physician Authored Date: [id number] MISHA JACKSON :1980 Age:41 years Sex:Female Visit Date:05/25/2022 Primary Care Physician: Hermes Ramirez MD Basic Information Time Seen: Felicia Roach MD / 05/25/2022 20:26 Chief Complaint . 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 Have routine blood work done this morning ordered by her care??transplant team from [place].?? CBC this morning was normal with a normal??WBC.?? Comprehensive metabolic panel showed a??transaminitis. ??GFR is 50.?? She was seen in [place] several days ago and tested negative for influenza.?? Presents to the ED with??progressive flulike symptoms??associated with flank pain and dysuria.?? Presents with a recurrent??intractable migraine. ??No neck pain. ??No cough or shortness of breath.?? No nausea vomiting or diarrhea. ??No abdominal pain.?? Multiple numerous complaints.?? She denies any fever or chills. Review of Systems: Constitutional:?No??fevers,?No??chills,?No??sweats Eye:?No??recent visual problems ENT:?No??ear pain,?No??nasal congestion,?No??sore throat Respiratory:?No??shortness of breath,?No??cough Cardiovascular:?No??Chest pain,?No??palpitations,?No??syncope Gastrointestinal:?Nonausea,?No??vomiting,?No??diarrhea Genitourinary:?No??hematuria??pain and dysuria Clemente/Lymph:?No??bruising tendency,?No??swollen lymph glands Endocrine:?No??excessive thirst,??No??excessive hunger Musculoskeletal:??No??back pain,??No??neck pain,??No??joint pain,??No??muscle pain,??No??decreased range of motion Integumentary:?No??rash,?No??pruritus,?No??abrasions Neurologic: Alert & oriented X 4. ??Recurrent intractable headache. ??Same character headache is in the past Psychiatric:?No??anxiety,?No??depression Physical Exam General: Alert and oriented, well nourished,?No??acute distress Eye: PERRL, EOMI,?Normal??conjunctiva HENT: Normocephalic, clear tympanic membranes,?Normal?? hearing, moist oral mucosa,?No??scleral icterus,?No??sinus tenderness Neck: Supple, non-tender,?No??carotid bruits,?No??JVD,?No??lymphadenopathy. ??No nuchal rigidity Lungs:??Clear to auscultation?? Respiration:??Non-Labored Heart:?Normal?? rate,?Regular??rhythm,?No??murmur,?No??gallop,?No??edema Breast:?No??lumps,?No??bumps,?No??scars,?Normal?? nipples. ??No chest tenderness Abdomen: Soft, non-tender, non-distended,?Normal?? bowel sounds,?No??masses. ??Benign abdominal exam. ??No CVA tenderness Musculoskeletal:?Normal?? range of motion and strength,?No??tenderness,?No??swelling Skin: Skin is warm, dry and pink,?No??rashes,?No??lesions Neurologic: Awake, alert and oriented X4, CN II-XII intact Psychiatric: Cooperative, appropriate mood and affect Medical Decision Making: CBC was unremarkable except for chronic mild anemia.?? WBC normal 2 sets of blood cultures drawn Comprehensive metabolic panel showed??chronic recurrent transaminitis. ??Transaminases the same level as this morning. ??She is already under the care by her liver transplant team.?? Total bilirubin does normal Urinalysis??was negative??for any infection test at this negative Bio [facility] panel was negative for COVID-19 or any other respiratory viruses Procedure No Qualifying Data Assessment/Plan 1.??Headache, migraine, intractable??G43.919 Follow-up with PCP 2.??Acute viral syndrome??B34.9 Follow-up with PCP Follow-up with your transplant team Orders: Blood Culture, Peripheral Blood, Routine collect, RT - Routine, 05/25/22 20:27:00 IV THERAPY NURSE, Once, Lab Collect, Print Label Blood Culture, Peripheral Blood, Routine collect, RT - Routine, 05/25/22 20:27:00 IV THERAPY NURSE, Once, Lab Collect, Print Label Patient Discharge Condition Stable Discharge Disposition Discharge to home Patient Education Chronic Migraine Headache, [id number] Follow Up With When Contact Information Follow up with specialist Within 3 to 5 days Additional Instructions: Follow-up with your PCP??with regards to your liver and renal transplant??monitoring Follow up with primary care provider Within 5 to 7 days Additional Instructions: Medication Reconciliation Unchanged albuterol (albuterol 90 mcg/inh [...] Milligrams Intramuscular (in a muscle) once. ?? diphenhydrAMINE (Benadryl)50 Milligrams Intramuscular (in a [...] Milligrams Intramuscular (in a muscle) once. ?? sirolimus (sirolimus 2 mg oral tablet)1 [...] of cervical region Gout Headache, migraine, intractable Heart murmur History of burning pain in leg History of kidney transplant History of liver transplant Hx of migraine headaches Idiopathic thrombocytopenic purpura Intractable migraine Liver transplant disorder Lumbar back pain Migraine headache Numbness and tingling of right arm Pain, joint, multiple sites Sprain of knee Tachycardia Thrombocytopenia Tobacco use Historical Abdominal pain [...] Medication Administration Given Benadryl, 50 mg, IM morphine, 2 mg, IM Phenergan, 25 mg, IM Allergies NSAIDs Toradol??(Kidney failure as a complication of care) aspirin??(Medication interaction) azithromycin??(Unknown) codeine??(Unknown, Itching) gentamicin erythromycin??(Medication interaction) Social History Alcohol Never Electronic Cigarette/Vaping Electronic Cigarette Use: Never. Substance Use Never Tobacco Current everyday tobacco user Tobacco Use:. Family History Cancer: Mother. Lab Results CBC and Differential?? LATEST RESULTS?? HISTORICAL RESULTS?? WBC?? 05/25/22 22:14?? 4.6?? 05/25/22?? 4.6?? RBC?? 05/25/22 22:14?? 3.81 ??Low?? 05/25/22?? 4.01 ??Low?? Hgb?? 05/25/22 22:14?? 11.9 ??Low?? 05/25/22?? 12.4?? Hct?? 05/25/22 22:14?? 36.1?? 05/25/22?? 37.4?? MCV?? 05/25/22 22:14?? 94.8?? 05/25/22?? 93.3?? MCH?? 05/25/22 22:14?? 31.2?? 05/25/22?? 30.9?? MCHC?? 05/25/22 22:14?? 33.0?? 05/25/22?? 33.2?? RDW-CV?? 05/25/22 22:14?? 12.5?? 05/25/22?? 12.4?? Platelets?? 05/25/22 22:14?? 114 ??Low?? 05/25/22?? 125 ??Low?? MPV?? 05/25/22 22:14?? 10.7 ??High?? 05/25/22?? 10.4 ??High?? Neutro Auto?? 05/25/22 22:14?? 67.3?? 05/25/22?? 74.1?? Lymph Auto?? 05/25/22 22:14?? 24.1?? 05/25/22?? 14.9?? Marathon Auto?? 05/25/22 22:14?? 5.0?? 05/25/22?? 5.6?? Eos, Auto?? 05/25/22 22:14?? 3.0?? 05/25/22?? 5.0?? Basophil Auto?? 05/25/22 22:14?? 0.2?? 05/25/22?? 0.2?? Imm Gran Auto?? 05/25/22 22:14?? 0.4?? 05/25/22?? 0.2?? NRBC Auto?? 05/25/22 22:14?? 0.0?? 05/25/22?? 0.0?? Neutro Absolute?? 05/25/22 22:14?? 3.1?? 05/25/22?? 3.4?? Lymph Absolute?? 05/25/22 22:14?? 1.1?? 05/25/22?? 0.7 ??Low?? Marathon Absolute?? 05/25/22 22:14?? 0.2?? 05/25/22?? 0.3?? Eos Absolute?? 05/25/22 22:14?? 0.1?? 05/25/22?? 0.2?? Baso Absolute?? 05/25/22 22:14?? 0.0?? 05/25/22?? 0.0?? Imm Gran Absolute?? 05/25/22 22:14?? 0.0?? 05/25/22?? 0.0?? NRBC Absolute?? 05/25/22 22:14?? 0.0?? 05/25/22?? 0.0? Routine Chemistry?? LATEST RESULTS?? HISTORICAL RESULTS?? Sodium Level?? 05/25/22 22:14?? 144?? 05/25/22?? 144?? Potassium Level?? 05/25/22 22:14?? 3.6?? 05/25/22?? 3.8?? Chloride Level?? 05/25/22 22:14?? 110 ??High?? 05/25/22?? 110 ??High?? CO2?? 05/25/22 22:14?? 22?? 05/25/22?? 21?? Alk Phos?? 05/25/22 22:14?? 463 ??High?? 05/25/22?? 456 ??High?? AST?? 05/25/22 22:14?? 80 ??High?? 05/25/22?? 119 ??High?? ALT?? 05/25/22 22:14?? 260 ??High?? 05/25/22?? 296 ??High?? BUN?? 05/25/22 22:14?? 12?? 05/25/22?? 13?? Glucose Level?? 05/25/22 22:14?? 87?? 05/25/22?? 129 ??High?? Creatinine Level?? 05/25/22 22:14?? 1.42 ??High?? 05/25/22?? 1.27?? eGFR AA?? 05/25/22 22:14?? 53?? 05/25/22?? 60?? eGFR Non-AA?? 05/25/22 22:14?? 44?? 05/25/22?? 50?? Calcium Level?? 05/25/22 22:14?? 8.9?? 05/25/22?? 8.7?? Protein Total?? 05/25/22 22:14?? 7.2?? 05/25/22?? 7.0?? Albumin Level?? 05/25/22 22:14?? 3.2 ??Low?? 05/25/22?? 3.0 ??Low?? Bilirubin Total?? 05/25/22 22:14?? 0.5?? 05/25/22?? 0.6?? Anion Gap?? 05/25/22 22:14?? 16 ??High?? 05/25/22?? 17 ??High?? Lactic Acid Lvl?? 05/25/22 22:14?? 1.0?? 03/28/22?? 0.5? Testing?? LATEST RESULTS?? HISTORICAL RESULTS?? U hCG Ql?? 05/25/22 22:27?? Negative?? 09/27/21?? Negative? UA Macroscopic?? LATEST RESULTS?? HISTORICAL RESULTS?? Urine Srce?? 05/25/22 22:27?? Clean Catch?? 05/15/22?? Clean Catch?? Urine Volume?? 05/25/22 22:27?? 12?? 05/15/22?? 12?? UA Color?? 05/25/22 22:27?? Yellow?? 05/15/22?? Yellow?? UA Appear?? 05/25/22 22:27?? Clear?? 05/15/22?? Clear?? UA Glucose?? 05/25/22 22:27?? Normal?? 05/15/22?? Normal?? UA Bili?? 05/25/22 22:27?? Negative?? 05/15/22?? Negative?? UA Ketones?? 05/25/22 22:27?? Negative?? 05/15/22?? Negative?? UA Spec Grav?? 05/25/22 22:27?? 1.005?? 05/15/22?? 1.010?? UA Blood?? 05/25/22 22:27?? Negative?? 05/15/22?? Negative?? UA pH?? 05/25/22 22:27?? 6.0?? 05/15/22?? 6.5?? UA Protein?? 05/25/22 22:27?? Negative?? 05/15/22?? Negative?? UA Urobilinogen?? 05/25/22 22:27?? Normal?? 05/15/22?? Normal?? UA Nitrite?? 05/25/22 22:27?? Negative?? 05/15/22?? Negative?? UA Leuk Est?? 05/25/22 22:27?? Negative?? 05/15/22?? Negative?? UA Culture Ind?.?? 05/25/22 22:27?? Not Indicated?? 05/15/22?? Not Indicated? UA Microscopic?? LATEST RESULTS?? HISTORICAL RESULTS?? UA WBC?? 05/25/22 22:27?? 0-5?? 05/15/22?? None?? UA RBC?? 05/25/22 22:27?? 0-3?? 05/15/22?? None?? UA Squam Epithelial?? 05/25/22 22:27?? Occasional?? 05/15/22?? Occasional?? UA Bacteria?? 05/25/22 22:27?? Occasional Abnormal?? 05/15/22?? Occasional Abnormal? Infectious Disease?? LATEST RESULTS?? HISTORICAL RESULTS?? Adenovirus RespP-BFire?? 05/26/22 00:16?? Not Detected?? 12/28/21?? Not Detected?? Bordetella parapertussis RespP-BFire?? 05/26/22 00:16?? Not Detected?? 12/28/21?? Not Detected?? Bordetella pertussis RespP-BFire?? 05/26/22 00:16?? Not Detected?? 12/28/21?? Not Detected?? Chlamydophila pneumoniae RespP-BFire?? 05/26/22 00:16?? Not Detected?? 12/28/21?? Not Detected?? Coronavirus 229E (Not COVID-19) RP-BFire?? 05/26/22 00:16?? Not Detected?? 12/28/21?? Not Detected?? Coronavirus HKU1 (Not COVID-19) RP-BFire?? 05/26/22 00:16?? Not Detected?? 12/28/21?? Not Detected?? Coronavirus NL63 (Not COVID-19) RP-BFire?? 05/26/22 00:16?? Not Detected?? 12/28/21?? Not Detected?? Coronavirus OC43 (Not COVID-19) RP-BFire?? 05/26/22 00:16?? Not Detected?? 12/28/21?? Not Detected?? SARS-CoV-2 (COVID-19) RP-BFire?? 05/26/22 00:16?? Not Detected?? 12/28/21?? Not Detected?? Human Metapneumonovirus RespP-BFire?? 05/26/22 00:16?? Not Detected?? 12/28/21?? Not Detected?? Human Rhinovirus/Enterovirus RespP-BFir?? 05/26/22 00:16?? Not Detected?? 12/28/21?? Not Detected?? Influenza A (no subtype) RespP-BFire?? 05/26/22 00:16?? Not Detected? Influenza A RespP-BFire?? 05/26/22 00:16?? Not Detected?? 12/28/21?? Not Detected?? Influenza B RespP-BFire?? 05/26/22 00:16?? Not Detected?? 12/28/21?? Not Detected?? Mycomplasma pneumoniae RespP-BFire?? 05/26/22 00:16?? Not Detected?? 12/28/21?? Not Detected?? Parainfluenza Virus 1 RespP-BFire?? 05/26/22 00:16?? Not Detected?? 12/28/21?? Not Detected?? Parainfluenza Virus 2 RespP-BFire?? 05/26/22 00:16?? Not Detected?? 12/28/21?? Not Detected?? Parainfluenza Virus 3 RespP-BFire?? 05/26/22 00:16?? Not Detected?? 12/28/21?? Not Detected?? Parainfluenza Virus 4 RespP-BFire?? 05/26/22 00:16?? Not Detected?? 12/28/21?? Not Detected?? Respiratory Syncytial Virus RespP-BFire?? 05/26/22 00:16?? Not Detected?? 12/28/21?? Not Detected?? Employed in healthcare??? 05/26/22 00:16?? Unknown?? 03/16/22?? No?? Symptomatic as defined by CDC??? 05/26/22 00:16?? Unknown?? 12/28/21?? No?? Hospitalized due to COVID-19??? 05/26/22 00:16?? Unknown?? 03/16/22?? No?? In ICU??? 05/26/22 00:16?? No?? 03/16/22?? No?? Group care resident??? 05/26/22 00:16?? No?? 03/16/22?? No?? status??? 05/26/22 00:16?? Not ?? 03/16/22?? Not ? Attending Attestation Stable Electronically Signed on 05/26/22 12:21 AM Felicia Roach MD Patient Care team information Care Team Personnel Name: Jessee Jones [employer] Position: Physician Member Role: Nurse Practitioner Address: Address: [address] [place] [address], [address] [place] [address]- Name: Latoya Marquez [employer] Position: Physician Member Role: Nurse Practitioner Address: Address: [address] [place] [address]- Name: Leonila Gonzalez [employer] Position: Physician Member Role: Nurse Practitioner Address: Address: [address] [place] [address]- Name: Beth Brandt [employer] Position: Physician Member Role: Nurse Practitioner Address: Address: [address] [place] [address] [place] [address] Name: Hermes Ramirez MD Position: Physician Member Role: Informed Provider Address: Address: [address] [facility] [facility], [address] [place] [address]- Name: Pillo Moe NP Position: Physician Member Role: Nurse Practitioner Address: Address: [address] [place] [address], [address] [facility] Name: Felicia Roach MD Position: Physician Member Role: Ordering Physician Address: Address: [address] [place] [address] Name: Shea Mayer RN Position: Nurse Member Role: Registered Nurse Care Team Related Persons Name: STACIA JONES Address: Home [address] [place], [place] [id number] Name: ROBYN JAMA Address: Home
--- OUTSIDE RECORDS SUMMARY | 2024-03-20 11:33 | XMS_ITS | Continuity of Care Document ---
Author Organization [facility] Address [address] [place] [address] Care Team Providers Care Load Mixer Name Role Phone Hermes Ramirez Primary Care Physician Encounter BONIFAY MARILUZ [id number] Date(s): 11/23/19 - 11/23/19 [place] [address] [place] [address]- Encounter Diagnosis Sprain of knee(Discharge Diagnosis) - 11/23/19 Sprain of unspecified site of left knee, initial encounter(Final) - Activity, other specified(Final) - Discharge Disposition: Home or Self Care Attending Physician: Shawna Puckett MD Admitting Physician: Shawna Puckett MD Allergies, Adverse Reactions, Alerts Substance Reaction Severity Status erythromycin Medication interaction Activ e aspirin Medication interaction Activ e Toradol Kidney failure as a complication of care Active Assessment and Plan Future Scheduled Tests Laboratory* COVID-19 Testing Send Out - ID State 10/25/19 Functional Status 11/23/19 Family Member Travel History No recent t [...] Recorded tetanus/diphth/pertuss (Tdap) adult/adol 05/25/12 Recorded Medications butorphanol 10 mg/mL nasal spray 1 sprays, Nasal, every 6 hr, PRN as needed for pain, # 2.5 mL, 0 Refill(s), Pharmacy: [id number] Start Date: 12/04/19 Stop Date: 01/03/20 Status: Ordered Diflucan 150 mg oral tablet 150 mg = 1 tab, Oral, Once, # 1 tab, 1 Refill(s), Pharmacy: [facility]#[id number] Start Date: 12/02/19 Status: Ordered Metoprolol Succinate ER 25 mg oral tablet, extended release 25 mg = 1 tab, Oral, BID, TAKE 1 TABLET BY MOUTH TWICE A DAY, # 60 tab, 5 Refill(s), [id number] Start Date: 10/09/19 Stop Date: 04/06/20 Status: Ordered Prograf 2 mg =, Oral, every 12 hr, 0 Refill(s) Start Date: 12/18/18 Status: Ordered promethazine 25 mg oral tablet 25 mg =, Oral, every 6 hr, PRN nausea/vomiting, # 20 tab, 0 Refill(s), Pharmacy: [facility]#[id number] Start Date: 04/28/19 Stop Date: 05/03/19 Status: Ordered sodium bicarbonate 650 mg oral tablet 1,300 mg = 2 tab, Oral, TID, # 60 tab, 0 Refill(s) Start Date: 12/18/18 Status: Ordered tiZANidine 2 mg oral capsule 2 mg = 1 cap, Oral, every 8 hr, PRN as needed for muscle spasm, # 90 cap, 0 Refill(s), Pharmacy: [facility] #[id number] Start Date: 09/27/19 Stop Date: 10/27/19 Status: Ordered Problem List Condition Effective Dates Status Health Status Inform ant Chronic kidney disease, stag e IV (severe)(Confirmed) Active Chronic pain(Confirmed) Active Chronic pain(Confirmed) Active Congenital biliary atresia(Confirmed) Active Rash(Confirmed) Active Hx of migraine headaches(Confirmed) Active Idiopathic thrombocytopenic purpura(Confirmed) Active Liver transplant disorder(Confirmed) Active Lumbar back pain(Confirmed) Active Migraine(Confirmed) Active Thrombocytopenia(Confirmed) Active Sprain of knee(Confirmed) Active Recurrent streptococcal tonsillitis(Confirmed) Active Procedures Procedure Date Related Diagnosis Body Site Status delivery Complet ed cyst removal from breast Completed Hernia Completed liver transplant Complete d Results Radiology Reports true* Exam Date Time Procedure Performing Provider Status 11/23/19 6:09 PM XR Knee 1 or 2 Views Bilateral Klepzig, Liz RT(R); Auth (Verified) Notes: (XR Knee 1 or 2 Views Bilateral) Reason For Exam: pain XR Knee 1 or 2 Views Bilateral EXAM DESCRIPTION: XR Knee 1 or 2 Views Bilateral REASON FOR STUDY: pain bilateral knees, pt states her rt knee gave out and she fell down some stairs, pain in knees also from walking a lot. hx rt knee meniscus tear no surgery DURATION: 2-3 hrs ago PREVIOUS SURGERY: liver transplant, c-sec, cyst removed from breast, ablation and tubes tied SMOKING HISTORY: TECHNIQUE: AP and lateral radiographic views acquired of the left and right knee. COMPARISON: None available. FINDINGS: LEFT KNEE BONES/JOINTS: No acute fracture, malalignment or osseous abnormalities. Joint spaces are maintained. SOFT TISSUES: Unremarkable. OTHER: No other significant finding. RIGHT KNEE BONES/JOINTS: No acute fracture, malalignment or osseous abnormalities. Joint spaces are maintained. SOFT TISSUES: Unremarkable. OTHER: No other significant finding. IMPRESSION: No acute osseous abnormality. THIS IS AN ELECTRONICALLY VERIFIED FINAL REPORT 11/23/2019 7:00 PM - Electronically signed by Radu Garnett MF: [id number] Report ID: [id number] Reading Location: [place] [address] Final Dictated by: Radu Garnett DO Dictated DT/TM: 11/23/2019 7:03 pm Signed by: Radu Garnett DO Signed (Electronic Signature): 11/23/2019 7:03 pm Vital Signs Most recent to oldest [Reference Range]: 1 Temperature Oral [35.8-37.3 Deg C] 37.2 Deg C (11/23/19 4:46 PM) Peripheral Pulse Rate [60-100 bpm] 90 bp m (11/23/19 4:46 PM) Respiratory Rate [14-20 br/min] 18 br/mi n (11/23/19 4:46 PM) Blood Pressure [90-140/60-90 mmHg] 152/8 9mmHg *HI* (11/23/19 4:46 PM) Weight 77.10 kg (11/23/19 4:46 PM) Weight Dosing 77.10 kg (11/23/19 4:52 PM) Height 157.000 cm (11/23/19 4:46 PM) Height/Length Measured (inches) 157.000 cm (11/23/19 4:46 PM) Height/Length Dosing 157.000 cm (11/23/19 4:52 PM) Body Mass Index Estimated 31 (11/23/19 4:46 PM) Social History Social History Type Response Smoking Status 4 or less cigarettes (less than 1/4 pack)/day in last 30 days entered on: 07/16/19 Sex Hospital Discharge Instructions Follow Up Care 11/23/2019 16:46:27 With:Follow up with specialist Address: When:1 to 2 days
--- OUTSIDE RECORDS SUMMARY | 2024-03-20 11:33 | XMS_ITS | Continuity of Care Document ---
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 Name Role Phone Hermes Ramirez Primary Care Physician [phone] Encounter RANDY MARILUZ [id number] Date(s): 02/09/24 - 02/09/[address] [address]- [place] Encounter Diagnosis Acute bronchitis due to Rhinovirus(Discharge Diagnosis) - 02/09/24 Discharge Disposition: Home or Self Care Attending Physician: Andrew Francis DO Admitting Physician: Andrew Francis DO Allergies, Adverse Reactions, Alerts Substance Criticality Severity [...] Radiology* MG Mammo Diagnostic Bilateral w/ Chad 02/23/24 * US Breast Limited Left 02/23/24 Immunizations Given and Recorded Vaccine Date Status [...] Daily, # 30 tab, 11 Refill(s), Pharmacy: [place], [place], 157.48, cm, 01/04/23 15:03:00 CDT, Height/Length [...] BID, # 120 cap, 2 Refill(s), Pharmacy: [facility], 157.5, cm,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, Height, 89.91, kg, 02/06/24 16:28:00 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, Weight Dosing Start Date: 02/07/24 Status: Ordered [...] BID, # 60 cap, 11 Refill(s), Pharmacy: [facility], 157.48, cm, 01/04/23 15:03:00 CDT, Height/Length Dosing, 81.65, kg, 01/04/23 15:03:00 CDT, Weight Dosing Start Date: 01/11/23 Status: Ordered nicotine 21 mg/24 hr transdermal film, extended release 1 patches, Transdermal, Daily, # 14 patches, 1 Refill(s), Pharmacy: [id number], 157.48, cm, 01/01/24 14:49:00 CDT, Height, 87.09, kg, 01/01/24 14:53:00 CDT, Weight Dosing Start Date: 01/01/24 Status: Ordered Nicotrol Inhaler 10 mg inhalation device See Instructions, 6-16 cartriges/day, # 1 EA, 2 Refill(s), Pharmacy: [id number], 157.48, cm, 08/29/23 14:22:00 CDT, Height, 88, kg, 08/29/23 14:27:00 CDT, Weight Dosing Start Date: 08/29/23 Status: Ordered pantoprazole 40 mg oral delayed release tablet 1 tab, Oral, Daily, # 90 tab, 0 Refill(s), Pharmacy: [id number], 157.48, cm, 06/07/23 16:07:00 CDT, Height, 89.36, [...] QID, # 360 tab, 0 Refill(s), Pharmacy: [id number], 157.48, cm, 08/29/23 14:22:00 CDT, Height, 88, kg, 08/29/23 14:27:00 CDT, Weight Dosing Start Date: 09/05/23 Status: Ordered venlafaxine 37.5 mg oral capsule, extended release 37.5 mg = 1 cap, Oral, Daily, # 90 cap, 0 Refill(s), Pharmacy: [id number], 157.48, cm, 09/28/23 18:18:00 CDT, Height, [...] 03/09/23 repeat in 6 months 2normal 3normal Results Laboratory List Name Date Blood Gas Arterial RT (Arterial Blood Ga s RT) 02/09/24 Co-Oximetry Arterial 02/09/24 Respiratory Panel Mini ([facility]) BNP 02/09/24 CBC w/ Diff 02/09/24 Comprehensive Metabolic Panel (CMP) 01/19 05/13 D-Dimer 02/09/24 Lactic Acid 02/09/24 Troponin-I High Sensitivity 02/09/24 .Morphology (RANDY) 02/09/24 Automated Diff 02/09/24 Most recent to oldest [Reference Range]: 1 pCO2 Art [35.0-45.0 mmHg] 27.4 mmHg *LOW* (02/09/24 10:00 PM) pH Art [7.35-7.45] 7.47 *HI* (02/09/24 10:00 PM) pO2 Art [75.0-100.0 mmHg] 74.7 mmHg *LOW* (02/09/24 10:00 PM) WBC [4.0-11.5 K/mcL] 5.8 K/mcL (02/09/24 9:59 PM) RBC [4.20-5.40 x10^6/mcL] 3.60 x10^6/mcL *LOW* (02/09/24 9:59 PM) Neutro Auto 76.1 % *NA* (02/09/24 9:59 PM) Lymph Auto 14.9 % *NA* (02/09/24 9:59 PM) [place] Auto 5.7 % *NA* (02/09/24 9:59 PM) Basophil Auto 0.2 % *NA* (02/09/24 9:59 PM) BUN [7-18 mg/dL] 23 mg/dL *HI* (02/09/24 9:59 PM) Glucose Level [70-110 mg/dL] 134 mg/dL *HI* (02/09/24 9:59 PM) Potassium Level [3.5-5.1 mmol/L] 4.0 mmo l/L (02/09/24 9:59 PM) Baso Absolute [0.0-0.1 x10^3/mcL] 0.0 x1 0^3/mcL (02/09/24 9:59 PM) MCV [78.0-100.0 fL] 103.1 fL *HI* (02/09/24 9:59 PM) RBC Morph Reviewed (02/09/24 9:59 PM) AST [15-37 unit/L] 69 unit/L *HI* (02/09/24 9:59 PM) ALT [12-78 unit/L] 108 unit/L *HI* (02/09/24 9:59 PM) MCHC [29.0-37.5 g/dL] 33.7 g/dL (02/09/24 9:59 PM) Sodium Level [136-145 mmol/L] 144 mmol/L (02/09/24 9:59 PM) Lymph Absolute [0.8-5.8 x10^3/mcL] 0.9 x 10^3/mcL (02/09/24 9:59 PM) Hct [36.0-48.0 %] 37.1 % (02/09/24 9:59 PM) Calcium Level [8.5-10.1 mg/dL] 8.2 mg/dL *LOW* (02/09/24 9:59 PM) [place] Absolute [0.1-1.5 x10^3/mcL] 0.3 x1 0^3/mcL (02/09/24 9:59 PM) Albumin Level [3.4-5.0 g/dL] 2.9 g/dL *LOW* (02/09/24 9:59 PM) Protein Total [6.4-8.2 g/dL] 6.3 g/dL *LOW* (02/09/24 9:59 PM) MCH [27.0-34.0 pg] 34.7 pg *HI* (02/09/24 9:59 PM) Neutro Absolute [1.5-8.1 x10^3/mcL] 4.4 x10^3/mcL (02/09/24 9:59 PM) Bilirubin Total [0.0-1.0 mg/dL] 0.7 mg/d L (02/09/24 9:59 PM) Hgb [12.0-16.0 g/dL] 12.5 g/dL (02/09/24 9:59 PM) FiO2 Arterial 24 *NA* (02/09/24 10:00 PM) Alk Phos [46-130 unit/L] 229 unit/L *HI* (02/09/24 9:59 PM) MPV [6.0-10.0 fL] 11.0 fL *HI* (02/09/24 9:59 PM) Platelets [150-450 K/mcL] 100 K/mcL *LOW* (02/09/24 9:59 PM) CO2 [21-32 mmol/L] 24 mmol/L (02/09/24 9:59 PM) Eos Absolute [0.0-0.5 x10^3/mcL] 0.2 x10 ^3/mcL (02/09/24 9:59 PM) Lactic Acid Lvl [0.4-2.0 mmol/L] 1.3 mmo l/L (02/09/24 9:59 PM) Macrocyte 1+ (02/09/24 9:59 PM) Base Excess Arterial [-2.0-2.0 mmol/L] - 2.9 mmol/L *LOW* (02/09/24 10:00 PM) BNP [5-100 pg/mL] 214 pg/mL *HI* (02/09/24 9:59 PM) Chloride Level [97-107 mmol/L] 110 mmol/ L *HI* (02/09/24 9:59 PM) RDW-CV [11.5-15.0 %] 13.1 % (02/09/24 9:59 PM) Hector Test Art Pass (02/09/24 10:00 PM) COHb Art [0.0-1.5 %] 5.0 % *HI* (02/09/24 10:00 PM) Hgb Art [12.0-18.0 g/dL] 13.3 g/dL (02/09/24 10:00 PM) MetHb Art [0.0-1.5 %] 0.3 % (02/09/24 10:00 PM) Imm Gran Absolute [0.0-0.1 x10^3/mcL] 0. 0 x10^3/mcL (02/09/24 9:59 PM) Imm Gran Auto 0.5 % *NA* (02/09/24 9:59 PM) NRBC Auto 0.0 % *NA* (02/09/24 9:59 PM) NRBC Absolute [0.0-0.0 x10^3/mcL] 0.0 x1 0^3/mcL (02/09/24 9:59 PM) Puncture Site R Radial (02/09/24 10:00 PM) Slide Review RBC Morph (02/09/24 9:59 PM) O2 Device? room air *NA* (02/09/24 10:00 PM) Creatinine Level [0.60-1.30 mg/dL] 2.07 mg/dL 1 *HI* (02/09/24 9:59 PM) HCO3 Art [22.0-26.0 mmol/L] 19.4 mmol/L *LOW* (02/09/24 10:00 PM) Troponin-I HS [0-51 ng/L] 4 ng/L (02/09/24 9:59 PM) Anion Gap [5-15 mmol/L] 14 mmol/L (02/09/24 9:59 PM) D Dimer, (Quant.) [105-400 ng/mL DDU] 12 60 ng/mL DDU 2 *HI* (02/09/24 9:59 PM) Eos, Auto 2.6 % *NA* (02/09/24 9:59 PM) eGFR CKD-EPI 30 mL/min/1.73 m2 *NA* (02/09/24 9:59 PM) SARS-CoV-2 ([facility]) [Negative] Negativ e (02/09/24 9:59 PM) Influenza B virus ([facility]) [Negative] Negative (02/09/24 9:59 PM) Influenza A virus ([facility]) [Negative] Negative (02/09/24 9:59 PM) Respiratory syncytial virus ([facility]) [ Negative] Negative (02/09/24 9:59 PM) Human rhinovirus ([facility]) [Negative] P ositive *ABN* (02/09/24 9:59 PM) O2 Sat Art [90.0-98.5 %] 95.9 % (02/09/24 10:00 PM) 1Interpretive Data: Association of GFR and staging of kidney disease GFR With Kidney Damage Without Kidney Damage >=90 Stage 1 Normal 60-89 Stage 2 Decreased GFR 30-59 Stage 3 Stage 3 15-29 Stage 4 Stage 4 <15 or Stage 5 Stage 5 dialysis EGFR values not applicable for pediatric patients nor in those >70 years of age. 2Interpretive Data: This test has not been validated for the primary exclusion of pulmonary embolismor deep venous thrombosis. Results should be applied in conjunction with a clinical algorithm for the evaluation of thromboembolic disease. The reported 90% confidence limit for a negative result is <400 ng/mL. Radiology Reports * Exam Date Time Procedure Performing Provider Status 02/09/24 10:14 PM XR Chest 2 Views Oscar Jeong RT(R )(ARRT); Auth (Verified) Notes: (XR Chest 2 Views) Reason For Exam: cough XR Chest 2 Views EXAM DESCRIPTION: XR Chest 2 Views REASON FOR STUDY: SOB,headache, cough, cough TECHNIQUE: 2 radiographic view(s) of the chest. COMPARISON: 03/20/2023 FINDINGS: LUNGS: No focal opacity, pleural effusion, or pneumothorax. HEART/MEDIASTINUM: Cardiac silhouette mildly prominent in size. Mediastinal and hilar contours appear normal. LINES/TUBES: None. BONES: No acute osseous abnormality. IMPRESSION: No acute cardiopulmonary abnormality. THIS IS AN ELECTRONICALLY VERIFIED FINAL REPORT 02/09/2024 10:19 PM - Electronically signed by Jonas Clemens M.D. KH: MARIAMA Report ID: [id number] Reading Location: [place] [address] Final Dictated by: Jonas Clemens MD Dictated DT/TM: 02/09/2024 10:21 pm Signed by: Jonas Clemens MD Signed (Electronic Signature): 02/09/2024 10:21 pm Vital Signs Most recent to oldest [Reference Range]: 1 2 3 Temperature Oral [35.8-37.3 Deg C] 37.1 Deg C (02/09/24 9:27 PM) Peripheral Pulse Rate [60-100 bpm] 80 bpm (02/09/24 11:26 PM) 88 bpm (02/09/24 9:27 PM) Heart Rate Monitored [60-100 bpm] 85 bpm (02/09/24 10:20 PM) 80 bpm (02/09/24 10:14 PM) Respiratory Rate [12-24 br/min] 18 br/min (02/09/24 11:26 PM) 20 br/min (02/09/24 10:20 PM) 20 br/min (02/09/24 10:14 PM) Blood Pressure [90-120/60-80 mmHg] 126/74mmHg *HI* (02/09/24 11: PM) 162/93mmHg *HI* (02/09/24 9:27 PM) Mean Arterial Pressure, Cuff [65-140 mmHg] 116 mmHg (02/09/24 9:27 PM) Weight 86.18 kg (02/09/24: PM) Weight Dosing 86.180 kg (02/09/24: PM) Height 157.48 cm (02/09/24:27 PM) Body Mass Index 34.75 kg/m2 (02/09/24 9: PM) Social History Social History Type Response Tobacco Current everyday tob acco user Tobacco Use:. Sex Sex Representation Female (finding) Hospital Discharge Instructions Patient Education 02/09/2024 23:06:47 Chronic Pain, Adult Chronic Pain, Adult Chronic pain is a type of pain that lasts or keeps coming back for at least 3???6 months. You may have headaches, pain in the abdomen, or pain in other areas of the body. Chronic pain may be related to an illness, injury, or a health condition. Sometimes, the cause of chronic pain is not known. Chronic pain can make it hard for you to do daily activities. If it is not treated, chronic pain can lead to anxiety and depression. Treatment depends on the cause of your pain and how severe it is. You may need to work with a pain specialist to come up with a treatment plan. Many people benefit from two or more types of treatment to control their pain. Follow these instructions at home: Treatment plan Follow your treatment plan as told by your health care provider. This may include: ??? Gentle, regular exercise. ??? Eating a healthy diet that includes foods such as vegetables, fruits, fish, and lean meats. ??? Mental health therapy (cognitive or behavioral therapy) that changes the way you think or act in response to the pain. This may help improve how you feel. ??? Doing physical therapy exercises to improve movement and strength. ??? Meditation, yoga, acupuncture, or massage therapy. ??? Using the oils from plants in your environment or on your skin (aromatherapy). Other treatments may include: ??? Uhna-wit-bvvvpms or prescription medicines. ??? Color, light, or sound therapy. ??? Local electrical stimulation. The electrical pulses help to relieve pain by temporarily stopping the nerve impulses that cause you to feel pain. ??? Injections. These deliver numbing or pain-relieving medicines into the spine or the area of pain. Medicines ??? Take vpte-fvw-qbizbnj and prescription medicines only as told by your health care provider. ??? Ask your health care provider if the medicine prescribed to you: ??? Requires you to avoid driving or using machinery. ??? Can cause constipation. You may need to take these actions to prevent or treat constipation: ??? Drink enough fluid to keep your urine pale yellow. ??? Take emkz-txr-ymltozf or prescription medicines. ??? Eat foods that are high in fiber, such as beans, whole grains, and fresh fruits and vegetables. ??? Limit foods that are high in fat and processed sugars, such as fried or sweet foods. Lifestyle ??? Ask your health care provider whether you should keep a pain diary. Your health care provider will tell you what information to write in the diary. This may include: ??? When you have pain. ??? What the pain feels like. ??? How medicines and other behaviors or treatments help to reduce the pain. ??? Consider talking with a mental health care provider about how to help manage chronic pain. ??? Consider joining a chronic pain support group. ??? Try to control or lower your stress levels. Talk with your health care provider about ways to do this. General instructions ??? Learn as much as you can about how to manage your chronic pain. Ask your health care provider if an intensive pain rehabilitation program or a chronic pain specialist would be helpful. ??? Check your pain level as told by your health care provider. Ask your health care provider if you should use a pain scale. Contact a health care provider if: ??? Your pain is not controlled with treatment. ??? You have new pain. ??? You have side effects from pain medicine. ??? You feel weak or you have trouble doing your normal activities. ??? You have trouble sleeping or you develop confusion. ??? You lose feeling or have numbness in your body. ??? You lose control of your bowels or bladder. Get help right away if: ??? Your pain suddenly gets much worse. ??? You develop chest pain. ??? You have trouble breathing or shortness of breath. ??? You faint, or another person sees you faint. These symptoms may be an emergency. Get help right away. Call 911. ??? Do not wait to see if the symptoms will go away. ??? Do not drive yourself to the hospital. Also, get help right away if: ??? You have thoughts about hurting yourself or others. Take one of these steps if you feel like you may hurt yourself or others, or have thoughts about taking your own life: ??? Go to your nearest emergency room. ??? Call 911. ??? Call the National Suicide Prevention Lifeline at or 541. This is open 24 hours aday. ??? Text the Crisis Text Line at 026443. This information is not intended to replace advice given to you by your health care provider. Make sure you discuss any questions you have with your health care provider. Document Revised: 10/26/2022 Document Reviewed: 09/28/2022 [employer] Patient Education ?? 2022 [employer]. 02/09/2024 23:06:47 Viral Respiratory Infection Viral Respiratory Infection A respiratory infection is an illness that affects part of the respiratory system, such as the lungs, nose, or throat. A respiratory infection that is caused by a virus is called a viral respiratory infection. Common types of viral respiratory infections include: ??? A cold. ??? The flu (influenza). ??? A respiratory syncytial virus (RSV) infection. What are the causes? This condition is caused by a virus. The virus may spread through contact with droplets or direct contact with infected people or their mucus or secretions. The virus may spread from person to person(is contagious). What are the signs or symptoms? Symptoms of this condition include: ??? A stuffy or runny nose. ??? A sore throat or cough. ??? Shortness of breath or difficulty breathing. ??? Yellow or green mucus (sputum). Other symptoms may include: ??? A fever. ??? Sweating or chills. ??? Fatigue. ??? Achy muscles. ??? A headache. How is this diagnosed? This condition may be diagnosed based on: ??? Your symptoms. ??? A physical exam. ??? Testing of secretions from the nose or throat. ??? Chest X-ray. How is this treated? This condition may be treated with medicines, such as: ??? Antiviral medicine. This may shorten the length of time a person has symptoms. ??? Expectorants. These make it easier to cough up mucus. ??? Decongestant nasal sprays. ??? Acetaminophen or NSAIDs, such as ibuprofen, to relieve fever and pain. Antibiotic medicines are not prescribed for viral infections.This is because antibiotics are designed to kill bacteria. They do not kill viruses. Follow these instructions at home: Managing pain and congestion ??? Take siaa-cbe-apujmsl and prescription medicines only as told by your health care provider. ??? If you have a sore throat, gargle with a mixture of salt and water 3???4 times a day or as needed. To make salt water, completely dissolve ?1 tsp (3???6 g) of salt in 1 cup (237 mL) of warm water. ??? Use nose drops made from salt water to ease congestion and soften raw skin around your nose. ??? Take 2 tsp (10 mL) of honey at bedtime to lessen coughing at night. ??? Do not give honey to children who are younger than 1 year. ??? Drink enough fluid to keep your urine pale yellow. This helps prevent dehydration and helps loosen up mucus. General instructions ??? Rest as much as possible. ??? Do not drink alcohol. ??? Do not use any products that contain nicotine or tobacco. These products include cigarettes, chewing tobacco, and vaping devices, such as e-cigarettes. If you need help quitting, ask your health care provider. ??? Keep all follow-up visits. This is important. How is this prevented? Get an annual flu shot. You may get the flu shot in late summer, fall, or winter. Ask your health care provider when you should get your flu shot. ??? Avoid spreading your infection to other people. If you are sick: ??? Wash your hands with soap and water often, especially after you cough or sneeze. Wash for at least 20 seconds. If soap and water are not available, use alcohol-based hand data analysis assistant. ??? Cover your mouth when you cough. Cover your nose and mouth when you sneeze. ??? Do not share cups or eating utensils. ??? Clean commonly used objects often. Clean commonly touched surfaces. ??? Stay home from work or school as told by your health care provider. ??? Avoid contact with people who are sick during cold and flu season. This is generally fall and winter. Contact a health care provider if: ??? Your symptoms last for 10 days or longer. ??? Your symptoms get worse over time. ??? You have severe sinus pain in your face or forehead. ??? The glands in your jaw or neck become very swollen. ??? You have shortness of breath. Get help right away if you: ??? Feel pain or pressure in your chest. ??? Have trouble breathing. ??? Faint or feel like you will faint. ??? Have severe and persistent vomiting. ??? Feel confused or disoriented. These symptoms may represent a serious problem that is an emergency. Do not wait to see if the symptoms will go away. Get medical help right away. Call your local emergency services (911 in the [place] Do not drive yourself to the hospital. Summary ??? A respiratory infection is an illness that affects part of the respiratory system, such as the lungs, nose, or throat. A respiratory infection that is caused by a virus is called a viral respiratory infection. ??? Common types of viral respiratory infections include a cold, influenza, and respiratory syncytial virus (RSV) infection. ??? Symptoms of this condition include a stuffy or runny nose, cough, fatigue, achy muscles, sore throat, and fevers or chills. ??? Antibiotic medicines are not prescribed for viral infections. This is because antibiotics are designed to kill bacteria. They are not effective against viruses. This information is not intended to replace advice given to you by your health care provider. Make sure you discuss any questions you have with your health care provider. Document Revised: 06/10/2021 Document Reviewed: 06/10/2021 [employer] Patient Education ?? 2022 [employer]. Follow Up Care 02/09/2024 21:10:19 With:Follow up with primary care provider Address:Unknown When:3 to 5 days Note * Oscar Jeong RT(R)(ARRT): PERFORM Event Display: Imaging Narrative Note Authored Date: Cyber Incident Analyst called [facility] @2250 per protocol for low GFR (patient was 30) to verify how much contrast to give during exam. Per Dr. Clemens with [facility], do not do exam. Pt has a hx of kidney transplant along with a low GFR. He said to let the ordering know that they should not go through with the exam and look for alternative options. I informed Dr. Francis in the ER and he requested that I cancel the exam. Oscar RT(R) Physician Emergency department Note * Andrew Francis DO: MODIFY, PERFORM Event Display: ED Note Physician Authored Date: MISHA JACKSON :1980 Age:43 years Sex:Female Visit Date:02/09/2024 Primary Care Physician: Hermes Ramirez MD Basic Information Time Seen: Andrew Francis DO / 02/09/2024 21:28 Chief Complaint Pt arrives to ED with c/o shortness of breath, cough, and head,, teeth and ears hurt. Was seen hereon 02/06 and diagnosed with pharyngitis. Tylenol Cold at 1999. History Of Present Illness: [place]shortness of breath cough??headache and??pleuritic chest pain??states her teeth and ears hurt and she has a headache??she was seen 2 days ago diagnosed with pharyngitis Review of Systems: Constitutional:?No??fevers,?No??chills,?No??sweats Eye:?No??recent visual problems ENT:?Positive for??ear pain,?Positive for??nasal congestion,?No??sore throat Respiratory:?Positive for??shortness of breath,?Positive for??cough pleuritic chest pain Cardiovascular:?No??Chest pain,?No??palpitations,?No??syncope Gastrointestinal:?Nonausea,?No??vomiting,?No??diarrhea Genitourinary:?No??hematuria Clemente/Lymph:?No??bruising tendency,?No??swollen lymph glands Endocrine:?No??excessive thirst,??No??excessive hunger Musculoskeletal:??No??back pain,??No??neck pain,??No??joint pain,??No??muscle pain,??No??decreased range of motion Integumentary:?No??rash,?No??pruritus,?No??abrasions Neurologic: Alert & oriented X 4 Psychiatric:?No??anxiety,?No??depression Physical Exam Vitals & Measurements T:??37.1?C ??(Oral)?? HR:??88??(Peripheral)?? RR:??18?? BP:??162/93?? SpO2:??98%?? HT:??157.48??cm?? WT:??86.18??kg?? BMI:??34.75?? Pain Score:??8?? O2 Therapy:??Room air?? General: Alert and oriented, well nourished, no acute distress. Eye: PERRL, EOMI, normal conjunctiva. HENT: Normocephalic, clear tympanic membranes, normal hearing, moist oral mucosa, no scleral icterus, no sinus tenderness. Neck: Supple, non-tender, no carotid bruits, no JVD, no lymphadenopathy. Lungs: Patient has some??scattered upper airway sounds??she started hyperventilating when I enter the room Heart: Normal rate, regular rhythm, no murmur, gallop or edema. Abdomen: Soft, non-tender, non-distended, normal bowel sounds, no masses. Musculoskeletal: Normal range of motion and strength, no tenderness or swelling. Skin: Skin is warm, dry and appropriate for ethnicity, no rashes or lesions. Neurologic: Awake, alert and oriented X4, CN II-XII intact. Psychiatric: Cooperative, appropriate mood and affect. Procedure No Qualifying Data Medication Reconciliation Unchanged amLODIPine (amLODIPine 5 mg oral tablet)1 tab Oral (given by mouth) every day. Refills: 11. ?? aspirin (aspirin 81 mg oral delayed release tablet)1 tab Oral (given by mouth) every day. ?? azaTHIOprine (azaTHIOprine 50 mg oral tablet) ?? cycloSPORINE (Gengraf 25 mg oral capsule) ?? diphenhydrAMINE (Benadryl 25 mg oral capsule)2 Capsules Oral (given by mouth) once. ?? famotidine (Pepcid 20 mg oral tablet)1 tab Oral (given by mouth) 2 times a day. ?? gabapentin (gabapentin 300 mg oral capsule)2 Capsules Oral (given by mouth) 2 times a day. Refills:2. ?? levothyroxine (levothyroxine 75 mcg (0.075 mg) oral tablet) ?? LORazepam (LORazepam 0.5 mg oral tablet)TAKE ONE TABLET BY MOUTH DAILY NEEDED FOR ANXIETY. ?? metoprolol (metoprolol succinate 100 mg oral capsule, extended release)1 Capsules Oral (given by mouth) 2 times a day. Refills: 11. ?? nicotine (nicotine 21 mg/24 hr transdermal film, extended release)1 patch(es) Transdermal (apply onthe skin) every day. Refills: 1. ?? nicotine (Nicotrol Inhaler 10 mg inhalation device)6-16 cartriges/day. Refills: 2. ?? pantoprazole (pantoprazole 40 mg oral delayed release tablet)1 tab Oral (given by mouth) every day.Refills: 0. ?? predniSONE (predniSONE 5 mg oral tablet)1 tab Oral (given by mouth) every day. with food or milk. ?? sucralfate (sucralfate 1 g oral tablet)1 tab Oral (given by mouth) 4 times a day. Refills: 0. ?? tacrolimus (Envarsus XR 1 mg oral tablet, extended release) ?? tacrolimus (Envarsus XR 4 mg oral tablet, extended release) ?? venlafaxine (venlafaxine 37.5 mg oral capsule, extended release)1 Capsules Oral (given by mouth) every day. Refills: 0. Problem List/Past Medical History Ongoing Acne Anxiety Breast lump on left side at 3 o'clock position Cervicalgia Chronic back pain Chronic neck pain Chronic pain Chronic pain Chronic paronychia of finger Congenital biliary atresia Constipation Degenerative disc disease, cervical Dental infection Difficulty sleeping Edema Foraminal stenosis of cervical region Gout Headache, chronic migraine without aura Headache, chronic migraine without aura, intractable Headache, migraine, intractable Heart murmur Hip sprain History of burning pain in leg History of fall History of kidney transplant History of liver transplant Hx of migraine headaches Idiopathic thrombocytopenic purpura Lumbar back pain Migraine headache Numbness and tingling of right arm Obesity Pain of right scapula Pain, joint, multiple sites PUD (peptic ulcer disease) Pulmonary nodules Right knee pain Right shoulder pain Right-sided chest wall pain Squamous cell carcinoma in situ Tachycardia Thrombocytopenia Tobacco use Weight gain Historical Abdominal pain in female Abscess of left thigh Acute dehydration Acute urinary tract infection Bilateral conjunctivitis Boil of groin Chronic kidney disease, stage IV (severe) Conjunctivitis, left eye COVID-19 Disease caused by 2019 novel coronavirus Disease caused by 2019 novel coronavirus Ear drainage right Fever Flank pain Health education/counseling Influenza A Intractable chronic migraine without aura Intractable migraine Itching of vulva Knee contusion Lab test positive for detection of COVID-19 virus Liver transplant disorder Low back sprain Migraine headache Migraine headache Migraine headache Nausea Otalgia of right ear Otitis externa of right ear Rash Recurrent streptococcal tonsillitis Right otitis externa Skin change Sore throat Sprain of knee Upper respiratory infection Urinary tract infection in female UTI (urinary tract infection) Viral upper respiratory infection Yellow eyes Procedure/Surgical History ???Mammogram (08/24/2023)???Screening Pap Smear; Obtaining, Preparing And Conveyance Of Cervical/Vaginal Smear To Laboratory (07/2022)???Examining eye (2021)???Bladder washout (12/14/2020)???Kidney transplant (05/13/2020)???Tx - Liver transplantation (05/08/2020)??? delivery???cyst removal from breast???Hernia???liver transplant Allergies NSAIDs Toradol??(Kidney failure as a complication of care) aspirin??(Medication interaction) azithromycin??(Unknown) codeine??(Unknown, Itching) gentamicin morphine??(redness, Itching) erythromycin??(Medication interaction) Social History Alcohol Never Electronic Cigarette/Vaping Electronic Cigarette Use: Never. Substance Use Never Tobacco Current everyday tobacco user Tobacco Use:.- Comments: Pt states that she smokes half a pack a day. Family History Cancer: Mother. Electronically Signed on 02/09/2024 23:06 CLOTH DRIER Andrew Francis DO Patient Care team information Care Team Personnel Name: Jessee Jones CRISIS COUNSELOR Position: Physician Member Role: Nurse Practitioner Address: [address] [facility] [address], [address] Name: Latoya Marquez CRISIS COUNSELOR Position: Physician Member Role: Nurse Practitioner Address: [address] [place] [address] Name: Leonila Gonzalez CRISIS COUNSELOR Position: Physician Member Role: Nurse Practitioner Address: [address] [place] [address] Name: Beth Brandt CRISIS COUNSELOR Position: Physician Member Role: Nurse Practitioner Address: [address] [place] [address] Name: Hermes Ramirez MD Position: Physician Member Role: Informed Provider Address: [address] [place] [address], [address] Name: Pillo Moe CRISIS COUNSELOR Position: Physician Member Role: Nurse Practitioner Address: [address] [place] [address], [facility] [address] [facility] Care Team Related Persons Name: STACIA JONES Name: ROBYN JAMA Name: NAIF CHOI Name: MADY CHEN Name: MADY CHEN Insurance Providers Guarantor name: MISHA JACKSON Health Plan Information #: 1 Payer: [employer] Member Number: [id number] Policy Number: NA Health Plan Information #: 2 Payer: [employer]ANCE APPROVED Member Number: [id number] Policy Number: Health Plan Information #: 3 Payer: MISC Workers Comp Member Number: NA Policy Number: NA
--- OUTSIDE RECORDS SUMMARY | 2024-03-20 11:33 | XMS_ITS | Continuity of Care Document ---
Author Organization [facility] Address [address] [place] [address] Care Team Providers Care Steel Pickler Name Role Phone Hermes Ramirez Primary Care Physician Encounter [facility] [id number] Date(s): 06/05/23 - 06/05/[address] [address]- [place] Discharge Disposition: Home or Self Care Attending Physician: Hernán Nixon MD Admitting Physician: Hernán Nixon MD Allergies, Adverse Reactions, Alerts Substance Reaction Severity Status codeine Unknown Itching Severe Active gentamicin Moderate Active erythromycin Medication interaction Activ e aspirin Medication interaction Severe Activ e morphine 1 redness Itching Mild Active Toradol Kidney failure as a complication of care Severe Active NSAIDs Severe Active azithromycin Unknown Severe Active 1localized reaction at iv site Assessment and Plan Future Appointments Diagnostic Tests Pending * CMV Quant DNA PCR (Plasma) LC 06/05/23 * Cyclosporine, Blood LC-MS/MS LC 06/05/23 Future Scheduled Tests Laboratory* Urinalysis with Microscopic [...] adult/adol 05/25/12 Recorded hepatitis B adult vaccine 8/24/18 Recorded hepatitis B adult vaccine 10/09/17 Recorded hepatitis A adult vaccine 10/09/17 Recorded Medications amLODIPine 5 mg oral tablet 5 mg = 1 tab, Oral, Daily, # 30 tab, 11 Refill(s), Pharmacy: [place], [place], 157.48, cm, 01/04/23 15:03:00 CDT, Height/Length [...] BID, # 60 cap, 11 Refill(s), Pharmacy: [place], [place], 157.48, cm, 01/04/23 15:03:00 CDT, Height/Length Dosing, 81.65, kg, 01/04/23 15:03:00 CDT, Weight Dosing Start Date: 01/11/23 Status: Ordered mycophenolate mofetil 250 mg oral capsule 0 Refill(s) Start Date: 01/02/23 Status: Ordered Pepcid 20 mg oral tablet 20 mg = 1 tab, Oral, BID, 0 Refill(s) Start Date: 09/29/20 Status: Ordered venlafaxine 37.5 mg oral capsule, [...] multiple sites Confirmed Active Cervicalgia Confirmed Active Obesity Confirmed [...] Tx - Liver transplantation 05/08/20 Completed Mammogram 2020 Completed delivery Complet ed cyst removal from breast Completed Hernia Completed liver transplant Complete d 1normal 2normal Results Laboratory List Name Date Automated Diff 06/05/23 CBC w/ Diff 06/05/23 Comprehensive Metabolic Panel 06/05/23 GGT 06/05/23 Magnesium Level 06/05/23 Most recent to oldest [Reference Range]: 1 WBC [4.0-11.5 K/mcL] 5.7 K/mcL (06/05/23 9:00 AM) RBC [4.20-5.40 x10^6/mcL] 4.27 x10^6/mcL (06/05/23 9:00 AM) Neutro Auto 71.1 % *NA* (06/05/23 9:00 AM) Lymph Auto 19.2 % *NA* (06/05/23 9:00 AM) [place] Auto 6.6 % *NA* (06/05/23 9:00 AM) Basophil Auto 0.2 % *NA* (06/05/23 9:00 AM) BUN [7-18 mg/dL] 18 mg/dL (06/05/23 9:00 AM) Glucose Level [70-110 mg/dL] 96 mg/dL (06/05/23 9:00 AM) Potassium Level [3.5-5.1 mmol/L] 4.2 mmo l/L (06/05/23 9:00 AM) Baso Absolute [0.0-0.1 x10^3/mcL] 0.0 x1 0^3/mcL (06/05/23 9:00 AM) MCV [78.0-100.0 fL] 101.4 fL *HI* (06/05/23 9:00 AM) AST [15-37 unit/L] 35 unit/L (06/05/23 9:00 AM) ALT [12-78 unit/L] 51 unit/L (06/05/23 9:00 AM) MCHC [29.0-37.5 g/dL] 33.5 g/dL (06/05/23 9:00 AM) Sodium Level [136-145 mmol/L] 142 mmol/L (06/05/23 9:00 AM) Lymph Absolute [0.8-5.8 x10^3/mcL] 1.1 x 10^3/mcL (06/05/23 9:00 AM) Hct [36.0-48.0 %] 43.3 % (06/05/23 9:00 AM) Calcium Level [8.5-10.1 mg/dL] 9.3 mg/dL (06/05/23 9:00 AM) [place] Absolute [0.1-1.5 x10^3/mcL] 0.4 x1 0^3/mcL (06/05/23 9:00 AM) Albumin Level [3.4-5.0 g/dL] 3.4 g/dL (06/05/23 9:00 AM) Protein Total [6.4-8.2 g/dL] 7.3 g/dL (06/05/23 9:00 AM) MCH [27.0-34.0 pg] 34.0 pg (06/05/23 9:00 AM) Magnesium Level [1.8-2.4 mg/dL] 1.8 mg/d L (06/05/23 9:00 AM) Neutro Absolute [1.5-8.1 x10^3/mcL] 4.1 x10^3/mcL (06/05/23 9:00 AM) Bilirubin Total [0.0-1.0 mg/dL] 1.0 mg/d L (06/05/23 9:00 AM) Hgb [12.0-16.0 g/dL] 14.5 g/dL (06/05/23 9:00 AM) Alk Phos [46-130 unit/L] 350 unit/L *HI* (06/05/23 9:00 AM) MPV [6.0-10.0 fL] 10.9 fL *HI* (06/05/23 9:00 AM) Platelets [150-450 K/mcL] 192 K/mcL (06/05/23 9:00 AM) CO2 [21-32 mmol/L] 21 mmol/L (06/05/23 9:00 AM) Eos Absolute [0.0-0.5 x10^3/mcL] 0.2 x10 ^3/mcL (06/05/23 9:00 AM) GGT [5-55 unit/L] 312 unit/L *HI* (06/05/23 9:00 AM) eGFR Non-AA 39 *NA* (06/05/23 9:00 AM) eGFR AA 47 *NA* (06/05/23 9:00 AM) Chloride Level [97-107 mmol/L] 108 mmol/ L *HI* (06/05/23 9:00 AM) RDW-CV [11.5-15.0 %] 12.4 % (06/05/23 9:00 AM) Imm Gran Absolute [0.0-0.1 x10^3/mcL] 0. 0 x10^3/mcL (06/05/23 9:00 AM) Imm Gran Auto 0.3 % *NA* (06/05/23 9:00 AM) NRBC Auto 0.0 % *NA* (06/05/23 9:00 AM) NRBC Absolute [0.0-0.0 x10^3/mcL] 0.0 x1 0^3/mcL (06/05/23 9:00 AM) Slide Review Not Indicated (06/05/23 9:00 AM) Creatinine Level [0.60-1.30 mg/dL] 1.56 mg/dL 1 *HI* (06/05/23 9:00 AM) Anion Gap [5-15 mmol/L] 17 mmol/L *HI* (06/05/23 9:00 AM) Eos, Auto 2.6 % *NA* (06/05/23 9:00 AM) 1Interpretive Data: Association of GFR and staging [...] she smokes half a pack a day. Patient Care team information Care Team Personnel Name: Jessee Jones CONFERENCE CENTER COORDINATOR Position: Physician Member Role: Nurse Practitioner Address: Address: [address] [place] [address], [address] [place] [address] Name: Latoya Marquez CONFERENCE CENTER COORDINATOR Position: Physician Member Role: Nurse Practitioner Address: Address: [address] [place] [address] Name: Leonila Gonzalez CONFERENCE CENTER COORDINATOR Position: Physician Member Role: Nurse Practitioner Address: Address: [address] [place] [address] Name: Beth Brandt CONFERENCE CENTER COORDINATOR Position: Physician Member Role: Nurse Practitioner Address: Address: [address] [place] [address] Name: Hermes Ramirez MD Position: Physician Member Role: Informed Provider Address: Address: [address] [place] [address], [address] Name: Pillo Moe CONFERENCE CENTER COORDINATOR Position: Physician Member Role: Nurse Practitioner Address: Address: [address] [place] [address], [facility] [address] [facility] Care Team Related Persons Name: STACIA JONES Address: Home [address] [id number] Name: MADY CHEN Name: MADY CHEN
--- OUTSIDE RECORDS SUMMARY | 2024-03-20 11:33 | XMS_ITS | Continuity of Care Document ---
Author Organization [facility] Address [address] [place] [address] Care Team Providers Care Baker Bread Name Role Phone Hermes Ramirez Primary Care Physician [phone] Encounter [facility] [id number] Date(s): 11/04/21 - 11/04/[address] [address] Encounter Diagnosis Migraine headache(Discharge Diagnosis) - 11/04/21 Gastroenteritis(Discharge Diagnosis) - 11/04/21 Discharge Disposition: Home or Self Care Attending Physician: Akil Casas MD Admitting Physician: Akil Casas MD Allergies, Adverse Reactions, Alerts Substance Reaction Severity Status codeine Unknown Itching Severe Active gentamicin Moderate Active erythromycin Medication interaction Activ e azithromycin Unknown Severe Active aspirin Medication interaction Severe Activ e Toradol Kidney failure as a complication of care Severe Active NSAIDs Severe Active Immunizations Given and [...] wheezing, # 6.7 g, 0 Refill(s), Pharmacy: [facility] [place], [place], 73, cm, 09/13/21 23:53:00 CDT, Height/Length Dosing, 157, kg, 09/13/21 23:53:00 CDT, Weight Dosing Start Date: 09/14/21 Status: Ordered amLODIPine 10 mg oral tablet TAKE ONE TABLET DAILY Start Date: 12/18/20 Status: Ordered aspirin 81 mg oral delayed release tablet 81 mg = 1 tab, Oral, Daily, # 30 tab, 0 Refill(s) Start Date: 04/05/21 Status: Ordered butalbital/acetaminophen/caffeine 50 mg-300 mg-40 mg oral capsule 1 cap, Oral, every 4 hr, PRN as needed, # 12 cap, 0 Refill(s), Pharmacy: [place], [place], [address], cm, 11/04/21 20:02:00 CDT, Height/Length Dosing, 73, kg, 11/04/21 20:02:00 CDT, Weight Dosing Start Date: 11/04/21 Status: Ordered butalbital/acetaminophen/caffeine 50 mg-325 mg-40 mg oral tablet 1 tab, Oral, every 4 hr, 0 Refill(s) Start Date: 08/18/20 Status: Ordered butalbital/acetaminophen/caffeine 50 mg-325 mg-40 mg oral tablet TAKE 1-2 TABLETS BY MOUTH EVERY 8 HOURS NEEDED FOR HEADACHE. must last 30 days Start Date: 10/21/21 Status: Ordered gabapentin 300 mg oral capsule TAKE ONE CAPSULE AT BEDTIME Start Date: 12/18/20 Status: Ordered LORazepam 0.5 mg oral tablet TAKE ONE TABLET BY MOUTH DAILY NEEDED FOR ANXIETY Start Date: 12/18/20 Status: Ordered Metoprolol Tartrate 25 mg oral tablet 25 mg = 1 tab, Oral, BID, # 180 tab, 3 Refill(s), Pharmacy: [place], [place], [address], cm, 10/22/20 21:26:00 CDT, Height/Length Dosing, 74, kg, 10/22/20 21:26:00 CDT, Weight Dosing Start Date: 12/18/20 Status: Ordered ondansetron 4 mg oral tablet, disintegrating 4 mg = 1 tab, Oral, every 6 hr, PRN nausea/vomiting, # 12 tab, 0 Refill(s), Pharmacy: [place], [place], [address], cm, 11/04/21 20:02:00 CDT, Height/Length Dosing, 73, kg, 11/04/21 20:02:00 CDT, Weight Dosing Start Date: 11/04/21 Stop Date: 11/07/21 Status: Ordered Pepcid 20 mg oral tablet 20 mg = 1 tab, Oral, BID, 0 Refill(s) Start Date: 09/29/20 Status: Ordered Phenergan 25 mg oral tablet 25 mg = 1 tab, Oral, every 6 hr, PRN as needed for nausea/vomiting, # 20 tab, 0 Refill(s), Pharmacy: [place], [place], [address], cm, 09/29/21 23:03:00 CDT, Height/Length [...] Refill(s) Start Date: 05/17/21 Status: Ordered traZODone 100 mg oral tablet 100 mg = 1 tab, Oral, every night at bedtime, 0 Refill(s) Start Date: 10/18/21 Status: Ordered venlafaxine 37.5 mg oral capsule, extended release 37.5 mg = 1 cap, Oral, Daily, # 30 cap, 0 Refill(s) Start Date: 10/13/21 Status: Ordered Problem List Condition Effective Dates [...] Itching of vulva(Confirmed) Active Intractable migraine(Confirmed) Active Headache, migraine, intractable(Confirmed) Active Lab test positive for detect ion [...] List Name Date Respiratory Panel 2.1 (BioFire) 11/04/21 Most recent to oldest [Reference Range]: 1 Adenovirus RespP-BFire [Not Detected] No t Detected (11/04/21 8:28 PM) Bordetella parapertussis RespP-BFire [No t Detected] Not Detected (11/04/21 8:28 PM) Bordetella pertussis RespP-BFire [Not De tected] Not Detected (11/04/21 8:28 PM) Chlamydophila pneumoniae RespP-BFire [No t Detected] Not Detected (11/04/21 8:28 PM) Coronavirus 229E (Not COVID-19) RP-BFire [Not Detected] Not Detected (11/04/21 8:28 PM) Coronavirus HKU1 (Not COVID-19) RP-BFire [Not Detected] Not Detected (11/04/21 8:28 PM) Coronavirus NL63 (Not COVID-19) RP-BFire [Not Detected] Not Detected (11/04/21 8:28 PM) Coronavirus OC43 (Not COVID-19) RP-BFire [Not Detected] Not Detected (11/04/21 8:28 PM) Human Metapneumonovirus RespP-BFire [Not Detected] Not Detected (11/04/21 8:28 PM) Human Rhinovirus/Enterovirus RespP-BFir [Not Detected] Not Detected (11/04/21 8:28 PM) Influenza A RespP-BFire [Not Detected] N ot Detected (11/04/21 8:28 PM) Influenza B RespP-BFire [Not Detected] N ot Detected (11/04/21 8:28 PM) Mycomplasma pneumoniae RespP-BFire [Not Detected] Not Detected (11/04/21 8:28 PM) Parainfluenza Virus 1 RespP-BFire [Not D etected] Not Detected (11/04/21 8:28 PM) Parainfluenza Virus 2 RespP-BFire [Not D etected] Not Detected (11/04/21 8:28 PM) Parainfluenza Virus 3 RespP-BFire [Not D etected] Not Detected (11/04/21 8:28 PM) Parainfluenza Virus 4 RespP-BFire [Not D etected] Not Detected (11/04/21 8:28 PM) Respiratory Syncytial Virus RespP-BFire [Not Detected] Not Detected (11/04/21 8:28 PM) SARS-CoV-2 (COVID-19) RP-BFire [Not Dete cted] Not Detected (11/04/21 8:28 PM) Employed in healthcare? No *NA* (11/04/21 8:28 PM) Symptomatic as defined by CDC? No *NA* (11/04/21 8:28 PM) Hospitalized due to COVID-19? No *NA* (11/04/21 8:28 PM) In ICU? No *NA* (11/04/21 8:28 PM) Group care resident? No *NA* (11/04/21 8:28 PM) status? Unknown *NA* (11/04/21 8:28 PM) Vital Signs Most recent to oldest [Reference Range]: 1 Temperature Oral [35.8-37.3 Deg C] 37 De g C (11/04/21 7:27 PM) Peripheral Pulse Rate [60-100 bpm] 93 bp m (11/04/21 7:27 PM) Respiratory Rate [12-24 br/min] 20 br/mi n (11/04/21 7:27 PM) Blood Pressure [90-140/60-90 mmHg] 138/8 2mmHg (11/04/21 7:27 PM) Weight 73.00 kg (11/04/21 7:27 PM) Weight Dosing 73.00 kg (11/04/21 8:02 PM) Height 157.000 cm (11/04/21 7:27 PM) Height/Length Dosing 157.000 cm (11/04/21 8:02 PM) Social History Social History Type Response Smoking Status 5-9 cigarettes (betw een 1/4 to 1/2 pack)/day in last 30 days entered on: 05/12/21 Sex Hospital Discharge Instructions Patient Education 11/04/2021 21:45:58 Viral Gastroenteritis, Adult, [facility] Viral Gastroenteritis, Adult Viral gastroenteritis is also known as the stomach flu. This condition may affect your stomach, your small intestine, and your large intestine. It can cause sudden watery poop (diarrhea), fever, and throwing up (vomiting). This condition is caused by certain germs (viruses). These germs can be passed from person to person very easily (are contagious). Having watery poop and throwing up can make you feel weak and cause you to not have enough water inyour body (get dehydrated). This can make you tired and thirsty, make you have a dry mouth, and make it so you pee (urinate) less often. It is important to replace the fluids that you lose from having watery poop and throwing up. What are the causes? You can get sick by catching viruses from other people. ??? You can also get sick by: ??? Eating food, drinking water, or touching a surface that has the viruses on it (is contaminated). ??? Sharing utensils or other personal items with a person who is sick. What increases the risk? Having a weak body defense system (immune system). ??? Living with one or more children who are younger than 2 years old. ??? Living in a senior living. ??? Going on cruise ships. What are the signs or symptoms? Symptoms of this condition start suddenly. Symptoms may last for a few days or for as long as a week. ??? Common symptoms include: ??? Watery poop. ??? Throwing up. ??? Other symptoms include: ??? Fever. ??? Headache. ??? Feeling tired (fatigue). ??? Pain in the belly (abdomen). ??? Chills. ??? Feeling weak. ??? Feeling sick to your stomach (nauseous). ??? Muscle aches. ??? Not feeling hungry. How is this treated? This condition typically goes away on its own. ??? The focus of treatment is to replace the fluids that you lose. This condition may be treated with: ??? An ORS (oral rehydration solution). This is a drink that is sold at pharmacies and stores. ??? Medicines to help with your symptoms. ??? Probiotic supplements to reduce symptoms of diarrhea. ??? Fluids given through an IV tube, if needed. ??? Older adults and people with other diseases or a weak body defense system are at higher risk for not having enough water in the body. Follow these instructions at home: Eating and drinking ??? Take an ORS as told by your doctor. ??? Drink clear fluids in small amounts as you are able. Clear fluids include: ??? Water. ??? Ice chips. ??? Fruit juice with water added to it (diluted). ??? Low-calorie sports drinks. ??? Drink enough fluid to keep your pee (urine) pale yellow. ??? Eat small amounts of healthy foods every 3???4 hours as you are able. This may include whole grains, fruits, vegetables, lean meats, and yogurt. ??? Avoid fluids that have a lot of sugar or caffeine in them, such as energy drinks, sports drinks, and soda. ??? Avoid spicy or fatty foods. ??? Avoid alcohol. General instructions ??? Wash your hands often. This is very important after you have watery poop or you throw up. If you cannot use soap and water, use hand sexual assault response coordinator. ??? Make sure that all people in your home wash their hands well and often. ??? Take vonw-dhb-vqmltal and prescription medicines only as told by your doctor. ??? Rest at home while you get better. ??? Watch your condition for any changes. ??? Take a warm bath to help with any burning or pain from having watery poop. ??? Keep all follow-up visits as told by your doctor. This is important. Contact a doctor if: ??? You cannot keep fluids down. ??? Your symptoms get worse. ??? You have new symptoms. ??? You feel light-headed. ??? You feel dizzy. ??? You have muscle cramps. Get help right away if: ??? You have chest pain. ??? You feel very weak. ??? You pass out (faint). ??? You see blood in your throw-up. ??? Your throw-up looks like coffee grounds. ??? You have bloody or black poop (stools) or poop that looks like tar. ??? You have a very bad headache, or a stiff neck, or both. ??? You have a rash. ??? You have very bad pain, cramping, or bloating in your belly. ??? You have trouble breathing. ??? You are breathing very quickly. ??? You have a fast heartbeat. ??? Your skin feels cold and clammy. ??? You feel mixed up (confused). ??? You have pain when you pee. ??? You have signs of not having enough water in the body, such as: ??? Dark pee, hardly any pee, or no pee. ??? Cracked lips. ??? Dry mouth. ??? Sunken eyes. ??? Feeling very sleepy. ??? Feeling weak. Summary ??? Viral gastroenteritis is also known as the stomach flu. ??? This condition can cause sudden watery poop (diarrhea), fever, and throwing up (vomiting). ??? These germs can be passed from person to person very easily. ??? Take an ORS as told by your doctor. This is a drink that is sold at pharmacies and stores. ??? Drink fluids in small amounts many times each day as you are able. This information is not intended to replace advice given to you by your health care provider. Make sure you discuss any questions you have with your health care provider. Document Revised: 01/09/2019 Document Reviewed: 01/09/2019 [employer] Patient Education ?? 2020 [employer] 11/04/2021 20:24:01 Migraine Headache, Ldbr-xw-Avbg Migraine Headache A migraine headache is a [...] these instructions at home: Medicines ??? Take hbco-hzm-pohaalh and prescription medicines only as told by your doctor. ??? Ask your doctor if the medicine prescribed to you: ??? Requires you to avoid driving or using heavy machinery. ??? Can cause trouble pooping (constipation). You may need to take these steps to prevent or treat trouble pooping: ??? Drink enough fluid to keep your pee (urine) pale yellow. ??? Take fllv-egm-koeldyf or prescription medicines. ??? Eat foods that [...] Reviewed: 04/18/2019 [employer] Patient Education ?? 2020 [employer] Follow Up Care 11/04/2021 19:27:14 With:Hermes Ramirez MD Address: [address] [place] [address], [address] [place] [address]- When:1 to 2 days Patient Care team information Personnel Name: Hermes Ramirez MD Address: Address: [address] [place] [address], [address] [place] [phone]
--- OUTSIDE RECORDS SUMMARY | 2024-03-20 11:33 | XMS_ITS | Continuity of Care Document ---
Author Organization [facility] Address [address] [place] [address] Care Team Providers Care Refueling Ramp Attendant Name Role Phone Hermes Ramirez Chris Primary Care Physician Encounter [facility] [id number] Date(s): 07/02/21 - 07/02/[address] [address] Encounter Diagnosis Headache, chronic migraine without aura(Discharge Diagnosis) - 07/02/21 Discharge Disposition: Home or Self Care Attending Physician: Akil Casas MD Admitting Physician: Akil Casas MD Allergies, Adverse Reactions, Alerts Substance Reaction Severity Status gentamicin Moderate Active erythromycin Medication interaction Activ e aspirin Medication interaction Activ e Toradol Kidney failure as a complication of care Active NSAIDs Severe Active Assessment and Plan Future Appointments Future Scheduled Tests Radiology* MRI Spine Cervical w/o Contrast 06/11/21 * MRI Spine Cervical w/o Contrast 06/24/21 Immunizations Given and Recorded Vaccine Date Status [...] 0 Refill(s) Start Date: 08/18/20 Status: Ordered Ciprodex 0.3%-0.1% otic suspension 4 drops, Ear-Both, BID, X 7 days, # 7.5 mL, 0 Refill(s), 07/05/21 9:55:00 CDT, Pharmacy: [place], [place], 157.48, cm, 06/23/21 20:03:00 CDT, Height/Length Dosing, 77.11, kg, 06/23/21 20:03:00 CDT, Weight Dosing Start Date: 06/28/21 Stop Date: 07/05/21 Status: Ordered gabapentin 300 mg oral capsule [...] BID, # 180 tab, 3 Refill(s), Pharmacy: [place], [place], 157, cm, 10/22/20 21:26:00 CDT, Height/Length [...] 0 Refill(s) Start Date: 04/05/21 Status: Ordered triamcinolone 0.1% topical cream See Instructions, 1 sanjiv Topical BID apply a thin film to affected area, # 30 g, 0 Refill(s), 07/05/21 9:56:00 CDT, Pharmacy: [place], [place], 157.48, cm, 06/23/21 20:03:00 CDT, Height/Length Dosing, 77.11, kg, 06/23/21 20:03:00 CDT, W... Start Date: 06/28/21 Stop Date: 07/05/21 Status: Ordered Problem List Condition Effective Dates Status Health Status Inform ant Abdominal pain in female(Confirmed) Active Acne(Confirmed) Active Anxiety(Confirmed) Active Chronic neck pain(Confirmed) Active Chronic pain(Confirmed) Active Chronic pain(Confirmed) Active Congenital biliary atresia(Confirmed) Active Bilateral conjunctivitis(Confirmed) Active Constipation(Confirmed) Active COVID-19(Confirmed) Active Migraine(Confirmed) Active Difficulty sleeping(Confirmed) Active Rash(Confirmed) Active Gout(Confirmed) Active History of liver transplant(Confirmed) Active Hx of migraine headaches(Confirmed) Active Heart murmur(Confirmed) Active History of burning pain in leg(Confirmed) Active History of kidney transplant(Confirmed) Active Idiopathic thrombocytopenic purpura(Confirmed) Active Liver transplant disorder(Confirmed) Active Lumbar back pain(Confirmed) Active Migraine headache(Confirmed) Active Headache, chronic migraine w ithout aura(Confirmed) Active Pain, joint, multiple sites(Confirmed) Active Right otitis externa(Confirmed) Active Numbness and tingling of rig ht arm(Confirmed) Active Chronic paronychia of finger(Confirmed) Active Thrombocytopenia(Confirmed) Active Itching of vulva(Confirmed) Active Lab test positive for detect ion [...] Range]: 1 Temperature Oral [35.8-37.3 Deg C] 36.5 Deg C (07/02/21 12:10 AM) Peripheral Pulse Rate [60-100 bpm] 104 b pm *HI* (07/02/21 12:10 AM) Respiratory Rate [12-24 br/min] 20 br/mi n (07/02/21 12:10 AM) Blood Pressure [90-140/60-90 mmHg] 147/9 6mmHg *HI* (07/02/21 12:10 AM) Weight 79.00 kg (07/02/21 12:10 AM) Weight Dosing 79.00 kg (07/02/21 12:17 AM) Height 157.000 cm (07/02/21 12:10 AM) Height/Length Dosing 157.000 cm (07/02/21 12:17 AM) Body Mass Index Estimated 32 (07/02/21 12:10 AM) Social History Social History Type Response Smoking Status 5-9 cigarettes (betw een 1/4 to 1/2 pack)/day in last 30 days entered on: 05/12/21 Sex Hospital Discharge Instructions Patient Education 07/02/2021 00:32:44 Migraine Headache, Shwc-wf-Pwjk Migraine Headache A migraine headache is a [...] these instructions at home: Medicines ??? Take bvmm-azl-towlknq and prescription medicines only as told by your doctor. ??? Ask your doctor if the medicine prescribed to you: ??? Requires you to avoid driving or using heavy machinery. ??? Can cause trouble pooping (constipation). You may need to take these steps to prevent or treat trouble pooping: ??? Drink enough fluid to keep your pee (urine) pale yellow. ??? Take kfvw-tok-ivfchrh or prescription medicines. ??? Eat foods that [...] ?? 2020 [employer] Follow Up Care 07/02/2021 00:10:19 With:Hermes Ramirez MD Address: [address] [place] [address], [address] [place] [address]- When:1 week Care Team Personnel Name: Hermes Ramirez MD Address: [address] [place] [address], [address] [place] [address]
--- OUTSIDE RECORDS SUMMARY | 2024-03-20 11:33 | XMS_ITS | Continuity of Care Document ---
Author Organization [facility] Address [address] [place] [address] Care Team Providers Care Director Of Retail Name Role Phone Hermes Ramirez Primary Care Physician Encounter [facility] [id number] Date(s): 07/16/22 - 07/17/22 [facility] [address] [place], [place] [address] Encounter Diagnosis Pharyngitis(Discharge Diagnosis) - 07/17/22 Discharge Disposition: Home or Self Care Attending [...] Assessment and Plan Future Scheduled Tests Laboratory* ACTH, Plasma LC 06/27/22 * Thyroid Peroxidase (TPO) Ab LC 06/27/22 * Cortisol - AM LC 06/27/22 * Giardia lamblia Ag, EIA LC 04/07/22 * Cryptosporidium EIA LC 04/07/22 * Stool Culture LC 04/07/22 * Clostridium difficile Amp 04/07/22 * Free T4 06/27/22 * Ova + Parasite Exam LC 04/07/22 Radiology* MRI Shoulder w/o Contrast Right 06/27/22 * XR Shoulder Complete 2+ Views Right 07/04/22 Functional Status 07/16/22 Family Member Travel History No recent t [...] wheezing, # 6.7 g, 0 Refill(s), Pharmacy: [place], [place], 73, cm, 09/13/21 23:53:00 CDT, Height/Length [...] needed, # 12 cap, 0 Refill(s), Pharmacy: [place], [place], [address], cm, 11/04/21 20:02:00 CDT, Height/Length [...] BID, # 180 tab, 3 Refill(s), Pharmacy: [facility], 157.48, cm, 02/07/22 18:45:00CST, Height/Length Dosing, 72.57, kg, 02/07/22 18:45:00 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, Weight Dosing Start Date: 02/13/22 Status: Ordered Pepcid 20 mg oral tablet 20 mg = 1 tab, Oral, BID, 0 Refill(s) Start Date: 09/29/20 Status: Ordered Phenergan 25 mg oral tablet 25 mg = 1 tab, Oral, every 6 hr, PRN as needed for nausea/vomiting, # 20 tab, 0 Refill(s), Pharmacy: [place], [place], [address], cm, 09/29/21 23:03:00 CDT, Height/Length Dosing, 77, kg, 09/29/21 23:03:00 CDT, Weight Dosing Start Date: 09/29/21 Stop Date: 10/04/21 Status: Ordered predniSONE 20 mg oral tablet 40 mg = 2 tab, Oral, Once, 0 Refill(s) Start Date: 07/17/22 Status: Ordered Remeron 7.5 mg =, Oral, Daily, 0 Refill(s) Start Date: 07/16/22 Status: Ordered sirolimus 2 mg oral tablet [...] Active Nausea Confirmed Active Cervicalgia Confirmed Active Numbness and [...] Complete d Results Laboratory List Name Date Test Urine Qual 07/16/22 Strep A Screen 07/16/22 Urinalysis with Culture if Indicated 06/19 12/10 .Urine Volume 07/16/22 Urinalysis Microscopic 07/16/22 Most recent to oldest [Reference Range]: 1 UA Color Yellow (07/16/22 11:52 PM) UA WBC [0-5] 0-5 (07/16/22 11:52 PM) UA Urobilinogen [Normal mg/dL] 4 mg/dL *ABN* (07/16/22 11:52 PM) UA Bili [Negative mg/dL] 1 mg/dL *ABN* (07/16/22 11:52 PM) UA Ketones [Negative mg/dL] Negative mg/ dL (07/16/22 11:52 PM) UA RBC [0-3] None (07/16/22 11:52 PM) UA Leuk Est [Negative Guille/mcL] Negative Guille/mcL (07/16/22 11:52 PM) UA Nitrite [Negative] Negative (07/16/22 11:52 PM) UA Glucose [Normal mg/dL] Normal mg/dL (07/16/22 11:52 PM) UA Bacteria [None Seen] Many *ABN* (07/16/22 11:52 PM) UA Protein [Negative mg/dL] Negative mg/ dL (07/16/22 11:52 PM) UA Blood [Negative Rocael/mcL] Negative Orcael /mcL (07/16/22 11:52 PM) UA Spec Grav 1.010 (07/16/22 11:52 PM) UA Squam Epithelial [None Seen] Moderate *ABN* (07/16/22 11:52 PM) UA pH [5.0-9.0] 7.0 (07/16/22 11:52 PM) UA Appear [Clear] Clear (07/16/22 11:52 PM) Streptococcus A [Negative] Negative (07/16/22 11:52 PM) UA Culture Ind?. Not Indicated (07/16/22 11:52 PM) Urine Srce Clean Catch (07/16/22 11:52 PM) Urine Volume 12 mL (07/16/22 11:52 PM) U hCG Ql [Negative] Negative (07/16/22 11:52 PM) Vital Signs Most recent to oldest [Reference Range]: 1 Temperature Oral [35.8-37.3 Deg C] 36.7 Deg C (07/16/22 11:32 PM) Peripheral Pulse Rate [60-100 bpm] 88 bp m (07/16/22 11:32 PM) Respiratory Rate [12-24 br/min] 18 br/mi n (07/16/22 11:32 PM) Blood Pressure [90-140/60-90 mmHg] 143/8 8mmHg *HI* (07/16/22 11:32 PM) Weight Dosing 81.65 kg (07/16/22 11:46 PM) Weight Estimated 81.65 kg (07/16/22 11:32 PM) Height/Length Dosing 157.480 cm (07/16/22 11:46 PM) Height/Length Estimated 157.480 cm (07/16/22 11:32 PM) Social History Social History Type Response Tobacco Current everyday tob acco user Tobacco Use:. Sex Hospital Discharge Instructions Patient Education 07/17/2022 00:09:25 Pharyngitis, Ixzq-pz-Sagt Pharyngitis Pharyngitis is a sore throat (pharynx). This is when there is redness, pain, and swelling in your throat. Most of the time, this condition gets better on its own. In some cases, you may need medicine. What are the causes? An infection from a virus. ??? An infection from bacteria. ??? Allergies. What increases the risk? Being 5???24 years old. ??? Being in crowded environments. These include: ??? Daycares. ??? Schools. ??? Dormitories. ??? Living in a place with cold temperatures outside. ??? Having a weakened disease-fighting (immune) system. What are the signs or symptoms? Symptoms may vary depending on the cause. Common symptoms include: ??? Sore throat. ??? Tiredness (fatigue). ??? Low-grade fever. ??? Stuffy nose. ??? Cough. ??? Headache. Other symptoms may include: ??? Glands in the neck (lymph nodes) that are swollen. ??? Skin rashes. ??? Film on the throat or tonsils. This can be caused by an infection from bacteria. ??? Vomiting. ??? Red, itchy eyes. ??? Loss of appetite. ??? Joint pain and muscle aches. ??? Tonsils that are temporarily bigger than usual (enlarged). How is this treated? Many times, treatment is not needed. This condition usually gets better in 3???4 days without treatment. If the infection is caused by a bacteria, you may be need to take antibiotics. Follow these instructions at home: Medicines ??? Take rogy-hge-hrbydjd and prescription medicines only as told by your doctor. ??? If you were prescribed an antibiotic medicine, take it as told by your doctor. Do not stop taking the antibiotic even if you start to feel better. ??? Use throat lozenges or sprays to soothe your throat as told by your doctor. ??? Children can get pharyngitis. Do not give your child aspirin. Managing pain To help with pain, try: ??? Sipping warm liquids, such as: ??? Broth. ??? Herbal tea. ??? Warm water. ??? Eating or drinking cold or frozen liquids, such as frozen ice pops. ??? Rinsing your mouth (gargle) with a salt water mixture 3???4 times a day or as needed. ??? To make salt water, dissolve ?1 tsp (3???6 g) of salt in 1 cup (237 mL) of warm water. ??? Do not swallow this mixture. ??? Sucking on hard candy or throat lozenges. ??? Putting a cool-mist humidifier in your bedroom at night to moisten the air. ??? Sitting in the bathroom with the door closed for 5???10 minutes while you run hot water in the shower. General instructions ??? Do not smoke or use any products that contain nicotine or tobacco. If you need help quitting, ask your doctor. ??? Rest as told by your doctor. ??? Drink enough fluid to keep your pee (urine) pale yellow. How is this prevented? Wash your hands often for at least 20 seconds with soap and water. If soap and water are not available, use hand crowd controller. ??? Do not touch your eyes, nose, or mouth with unwashed hands. Wash hands after touching these areas. ??? Do not share cups or eating utensils. ??? Avoid close contact with people who are sick. Contact a doctor if: ??? You have large, tender lumps in your neck. ??? You have a rash. ??? You cough up green, yellow-brown, or bloody spit. Get help right away if: ??? You have a stiff neck. ??? You drool or cannot swallow liquids. ??? You cannot drink or take medicines without vomiting. ??? You have very bad pain that does not go away with medicine. ??? You have problems breathing, and it is not from a stuffy nose. ??? You have new pain and swelling in your knees, ankles, wrists, or elbows. These symptoms may be an emergency. Get help right away. Call your local emergency services (911 inthe [place] ??? Do not wait to see if the symptoms will go away. ??? Do not drive yourself to the hospital. Summary ??? Pharyngitis is a sore throat (pharynx). This is when there is redness, pain, and swelling in your throat. ??? Most of the time, pharyngitis gets better on its own. Sometimes, you may need medicine. ??? If you were prescribed an antibiotic medicine, take it as told by your doctor. Do not stop taking the antibiotic even if you start to feel better. This information is not intended to replace advice given to you by your health care provider. Make sure you discuss any questions you have with your health care provider. Document Revised: 06/02/2021 Document Reviewed: 06/02/2021 [employer] Patient Education ?? 2021 [employer]. Follow Up Care 07/16/2022 23:32:51 With:Follow up with primary care provider Address: When:5 to 7 days Physician Emergency department Note * Felicia Roach MD: PERFORM Event Display: ED Note Physician Authored Date: [id number] MISHA JACKSON :1980 Age:41 years Sex:Female Visit Date:07/16/2022 Primary Care Physician: Hermes Ramirez MD Basic Information Time Seen: Felicia Roach MD / 07/16/2022 23:34 Chief Complaint Pt arrives to ED with c/o possible UTI, chills, fever, right side throat pain, cough for 2 days andright chest discomfort under breast and into shoulder. Was seen here and dx with chest wall pain 2 weeks ago. Area is tender to touch. 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 Review of Systems: Constitutional:?No??fevers,?No??chills,?No??sweats Eye:?No??recent visual problems ENT:?No??ear pain,?No??nasal congestion,?Positive for??sore throat Respiratory:?No??shortness of breath,?No??cough Cardiovascular:?No??Chest pain,?No??palpitations,?No??syncope Gastrointestinal:?Nonausea,?No??vomiting,?No??diarrhea Genitourinary:?No??hematuria. Dysuria Clemente/Lymph:?No??bruising tendency,?No??swollen lymph glands Endocrine:?No??excessive thirst,??No??excessive hunger Musculoskeletal:??No??back pain,??No??neck pain,??No??joint pain,??No??muscle pain,??No??decreased range of motion Integumentary:?No??rash,?No??pruritus,?No??abrasions Neurologic: Alert & oriented X 4 Psychiatric:?No??anxiety,?No??depression Physical Exam Vitals & Measurements T:??36.7?C ??(Oral)?? HR:??88??(Peripheral)?? RR:??18?? BP:??143/88?? SpO2:??98%?? HT:??157.480??cm?? WT:??81.65??kg??(Estimated)?? Pain Score:??8?? O2 Therapy:??Room air?? General: Alert and oriented, well nourished,?No??acute distress. ??Blood pressure 143/88.?? Heart rate is 88.'s??temperature 36.7. ??Sats 98% room air Eye: PERRL, EOMI,?Normal?conjunctiva HENT: Normocephalic, clear tympanic membranes,?Normal? hearing, moist oral mucosa,?No??scleral icterus,?No??sinus tenderness Neck: Supple, non-tender,?No??carotid bruits,?No??JVD,?No??lymphadenopathy Lungs:??Clear to auscultation?? Respiration:??Non-Labored Heart:?Normal? rate,?Regular??rhythm,?No??murmur,?No??gallop,?No??edema Abdomen: Soft, non-tender, non-distended,?Normal? bowel sounds,?No??masses Musculoskeletal:?Normal? range of motion and strength,?No??tenderness,?No??swelling Skin: Skin is warm, dry and pink,?No??rashes,?No??lesions Neurologic: Awake, alert and oriented X4, CN II-XII intact Psychiatric: Cooperative, appropriate mood and affect Medical Decision Making: Strep screen was negative Urinalysis was negative test was negative Given a dose of prednisone 40 mg p.o. single dose Procedure No Qualifying Data Assessment/Plan 1.??Pharyngitis??J02.9 Strep screen was negative Urinalysis was negative test was negative Given a dose of prednisone 40 mg p.o. single dose Advised to return to ED for evaluation if no better Advised to follow-up with PCP Orders: predniSONE, 40 mg = 2 tab, Oral, Tab, Once, First Dose: 07/17/22 0:08:00 CDT, Stop Date: 07/17/22 0:08:00 CDT, Physician Stop predniSONE 20 mg oral tablet, 40 mg = 2 tab, Oral, Once, 0 Refill(s) Patient Discharge Condition Stable Discharge Disposition Discharge to home Patient Education Pharyngitis, Wlah-fz-Gpln Follow Up With When Contact Information Follow up with primary care provider Within 5 to 7 days Additional Instructions: Medication Reconciliation New Prescription predniSONE (predniSONE 20 mg oral tablet)2 tab Oral (given by mouth) once. ?? Unchanged albuterol (albuterol 90 mcg/inh aerosol [...] 2 times a day. Refills: 3. ?? mirtazapine (Remeron)7.5 Milligrams Oral (given by mouth) every day. ?? Other Prescription (Sod Bicarb Tab 10gr [...] transplant disorder Lumbar back pain Migraine headache Nausea Numbness and tingling of right arm Pain, joint, multiple sites Right shoulder pain Right-sided chest wall pain Sprain of knee Squamous cell carcinoma in situ Tachycardia Thrombocytopenia Tobacco use Weight gain Historical Abdominal pain in female Acute dehydration [...] Use:. Family History Cancer: Mother. Lab Results Testing?? LATEST RESULTS?? HISTORICAL RESULTS?? U hCG Ql?? 07/16/22 23:52?? Negative?? 05/25/22?? Negative? UA Macroscopic?? LATEST RESULTS?? HISTORICAL RESULTS?? Urine Srce?? 07/16/22 23:52?? Clean Catch?? 06/29/22?? Clean Catch?? Urine Volume?? 07/16/22 23:52?? 12?? 06/29/22?? 12?? UA Color?? 07/16/22 23:52?? Yellow?? 06/29/22?? Yellow?? UA Appear?? 07/16/22 23:52?? Clear?? 06/29/22?? Hazy?? UA Glucose?? 07/16/22 23:52?? Normal?? 06/29/22?? Normal?? UA Bili?? 07/16/22 23:52?? 1 Abnormal?? 06/29/22?? Negative?? UA Ketones?? 07/16/22 23:52?? Negative?? 06/29/22?? Negative?? UA Spec Grav?? 07/16/22 23:52?? 1.010?? 06/29/22?? 1.015?? UA Blood?? 07/16/22 23:52?? Negative?? 06/29/22?? Negative?? UA pH?? 07/16/22 23:52?? 7.0?? 06/29/22?? 5.0?? UA Protein?? 07/16/22 23:52?? Negative?? 06/29/22?? Negative?? UA Urobilinogen?? 07/16/22 23:52?? 4 Abnormal?? 06/29/22?? Normal?? UA Nitrite?? 07/16/22 23:52?? Negative?? 06/29/22?? Negative?? UA Leuk Est?? 07/16/22 23:52?? Negative?? 06/29/22?? Negative?? UA Culture Ind?.?? 07/16/22 23:52?? Not Indicated?? 06/29/22?? Not Indicated? UA Microscopic?? LATEST RESULTS?? HISTORICAL RESULTS?? UA WBC?? 07/16/22 23:52?? 0-5?? 06/29/22?? 0-5?? UA RBC?? 07/16/22 23:52?? None?? 06/29/22?? 0-3?? UA Squam Epithelial?? 07/16/22 23:52?? Moderate Abnormal?? 06/29/22?? Many Abnormal?? UA Bacteria?? 07/16/22 23:52?? Many Abnormal?? 06/29/22?? Many Abnormal? Infectious Disease?? LATEST RESULTS?? HISTORICAL RESULTS?? Streptococcus A?? 07/16/22 23:52?? Negative?? 06/18/22?? Negative? Attending Attestation Stable Electronically Signed on 07/17/22 12:10 AM Felicia Roach MD Patient Care team information Care Team Personnel Name: Jessee Jones ASSISTANT WINEMAKER Position: Physician Member Role: Nurse Practitioner Address: Address: [address] [facility], [address] [place] [address]- Name: Latoya Marquez ASSISTANT WINEMAKER Position: Physician Member Role: Nurse Practitioner Address: Address: [address] [place] [address]- Name: Leonila Gonzalez ASSISTANT WINEMAKER Position: Physician Member Role: Nurse Practitioner Address: Address: [address] [place] [address]- Name: Beth Brandt ASSISTANT WINEMAKER Position: Physician Member Role: Nurse Practitioner Address: Address: [address] [place] [address] Name: Hermes Ramirez MD Position: Physician Member Role: Informed Provider Address: Address: [address] [facility], [address] [place] [address]- Name: Pillo Moe ASSISTANT WINEMAKER Position: Physician Member Role: Nurse Practitioner Address: Address: [address] [place] [address], [address] [facility] Name: Felicia Roach MD Position: Physician Member Role: Admitting Physician Address: Address: [address] [place] [address]- Name: Shea Mayer RN Position: Nurse Member Role: Registered Nurse Care Team Related Persons Name: STACIA JONES Address: Home [address] [place], [place] [id number] Name: ROBYN JAMA Address: Home
--- OUTSIDE RECORDS SUMMARY | 2024-03-20 11:33 | XMS_ITS | Continuity of Care Document ---
Author Organization [facility] Address [address] [place] [address] Care Team Providers Care Grain Drier Operator Name Role Phone Hermes Ramirez Primary Care Physician Encounter [place] MARILUZ [id number] Date(s): 03/19/22 - 03/19/[address] [address] Encounter Diagnosis Headache, migraine, intractable(Discharge Diagnosis) - 03/19/22 Discharge Disposition: Home or Self Care Attending [...] wheezing, # 6.7 g, 0 Refill(s), Pharmacy: [facility] [place], [place], [address], cm, 09/13/21 23:53:00 CDT, Height/Length [...] mL, IM, Once, 0 Refill(s) Start Date: 03/19/22 Status: Ordered buPROPion 100 mg/12 hours (SR) oral tablet, extended release TAKE ONE TABLET DAILY. swallow whole Start Date: 02/14/22 Status: Ordered butalbital/acetaminophen/caffeine 50 mg-300 mg-40 mg oral capsule 1 cap, Oral, every 4 hr, PRN as needed, # 12 cap, 0 Refill(s), Pharmacy: [place], [place], [address], cm, 11/04/21 20:02:00 CDT, Height/Length [...] BID, # 180 tab, 3 Refill(s), Pharmacy: [facility], 157.48, cm, 02/07/22 18:45:00CST, Height/Length Dosing, 72.57, kg, 02/07/22 18:45:00 THINNER SPRAYER, Weight Dosing Start Date: 02/13/22 Status: Ordered morphine 4 mg/mL preservative-free injectable solution 4 mg = 1 mL, IM, Once, 0 Refill(s) Start Date: 03/19/22 Status: Ordered oseltamivir 30 mg oral capsule 30 mg = 1 cap, Oral, BID, # 10 cap, 0 Refill(s), Pharmacy: [place], [place], [address], cm, 03/16/22 18:01:00 THINNER SPRAYER, Height/Length Dosing, 77.11, kg, 03/16/22 18:01:00 THINNER SPRAYER, Weight Dosing Start Date: 03/16/22 Status: Ordered Pepcid 20 mg oral tablet 20 mg = 1 tab, Oral, BID, 0 Refill(s) Start Date: 09/29/20 Status: Ordered Phenergan 25 mg = 1 mL, IM, Once, 0 Refill(s) Start Date: 03/19/22 Status: Ordered Phenergan 25 mg = 1 mL, IM, Once, 0 Refill(s) Start Date: 02/07/22 Status: Ordered Phenergan 25 mg oral tablet 25 mg = 1 tab, Oral, every 6 hr, PRN as needed for nausea/vomiting, # 20 tab, 0 Refill(s), Pharmacy: [place], [place], [address], cm, 09/29/21 23:03:00 CDT, Height/Length Dosing, 77, kg, 09/29/21 23:03:00 CDT, Weight Dosing Start Date: 09/29/21 Stop Date: 10/04/21 Status: Ordered predniSONE See Instructions, tapering dose, 0 Refill(s) Start Date: 03/01/22 Status: Ordered Sod Bicarb Tab 10gr 1000 [...] cervical Confirmed Active Difficulty sleeping Confirmed Active Disease caused by 2019 novel coronavirus 1 Confirmed 03/16/22 Active Rash Confirmed Active Fever Confirmed Active [...] for detection of COVID-19 virus Confirmed Active Skin change Confirmed Active Sore throat Confirmed Active Sprain of knee Confirmed Active Foraminal stenosis of cervical region Confirmed Active Tachycardia Confirmed Active Tobacco use Confirmed Active Upper respiratory infection Confirmed Active Urinary tract infection in female Confirmed Active 1Problem added by Rule (IC_COVID19_AUTO_PROBLEM) following SARS-CoV-2 (COVID-19) ([place]) from Swab collected on 16-MAR-2022 17:54:00 THINNER SPRAYER tested positive for COVID-19. Procedures Procedure Date Related Diagnosis Body Site Status Bladder washout 12/14/20 Completed Kidney transplant 05/13/20 Complet ed Tx - Liver transplantation 05/08/20 Completed delivery Complet ed cyst removal from breast Completed Hernia Completed liver transplant Complete d Vital Signs Most recent to oldest [Reference Range]: 1 2 Temperature Oral [35.8-37.3 Deg C] 36.5 Deg C (03/19/22 4:52 AM) Peripheral Pulse Rate [60-100 bpm] 82 bp m (03/19/22 4:52 AM) Respiratory Rate [12-24 br/min] 18 br/mi n (03/19/22 7:43 AM) 20 br/min (03/19/22 4:52 AM) Blood Pressure [90-140/60-90 mmHg] 107/6 7mmHg (03/19/22 4:52 AM) Weight 77.00 kg (03/19/22 4:52 AM) Weight Dosing 77.00 kg (03/19/22 5:12 AM) Height 157.000 cm (03/19/22 4:52 AM) Height/Length Dosing 157.000 cm (03/19/22 5:12 AM) Body Mass Index 31.000 kg/m2 (03/19/22 4:52 AM) Social History Social History Type Response Smoking Status 5-9 cigarettes (betw een 1/4 to 1/2 pack)/day in last 30 days entered on: 05/12/21 Sex Hospital Discharge Instructions Patient Education 03/19/2022 06:18:57 Chronic Migraine Headache, Ldlt-lv-[id number] Chronic Migraine Headache A migraine headache is [...] these instructions at home: Medicines ??? Take [id number]-[id number] and prescription medicines only as told by [...] Headache and Migraine Patients (CHAMP): [email or web address].org ??? [place] Migraine Foundation: [email or web address].org ??? National Headache Foundation: [...] provider. Document Revised: 04/22/2020 Document Reviewed: 04/22/2020 [employer] Patient Education ?? 2021 [employer] Follow Up Care 03/19/2022 04:52:33 With:Follow up with primary care provider Address: When:5 to 7 days Physician Emergency department Note * Felicia Roach MD: PERFORM Event Display: ED Note Physician Authored Date: MISHA JACKSON :1980 Age:41 years Sex:Female Visit Date:03/19/2022 Primary Care Physician: Hermes Ramirez MD Basic Information Time Seen: Felicia Roach MD / 03/19/2022 06:09 Chief Complaint pt here earlier and left has influenza a and covid was here 26 and 28 for headache prehospital she took furiocet with no relief pt states I tried to go to sleep and I couldnt History Of Present Illness: This is a case??of a 41-year-old female who frequents the ER because intractable??migraines, past medical history of??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 twice daily.?? Returns with a recurrent headache and she is unable to sleep.?? She denies any fever or chills or any shortness of breath relatedto COVID-19 infection.?? No nausea or vomiting. ??No chest pain pleurisy or palpitations.?? Similarcomplaints in the past.?? Has been the ER almost 5 times this month for similar headache. Review of Systems: Constitutional:?No??fevers,?No??chills,?No??sweats Eye:?No??recent visual problems ENT:?No??ear pain,?No??nasal congestion,?No??sore throat Respiratory:?No??shortness of breath,?No??cough. ??No flulike symptoms Cardiovascular:?No??Chest pain,?No??palpitations,?No??syncope Gastrointestinal:?Nonausea,?No??vomiting,?No??diarrhea Genitourinary:?No??hematuria Clemente/Lymph:?No??bruising tendency,?No??swollen lymph glands Endocrine:?No??excessive thirst,??No??excessive hunger Musculoskeletal:??No??back pain,??No??neck pain,??No??joint pain,??No??muscle pain,??No??decreased range of motion Integumentary:?No??rash,?No??pruritus,?No??abrasions Neurologic: Alert & oriented X 4 Psychiatric:?No??anxiety,?No??depression Physical Exam Vitals & Measurements T:??36.5?C ??(Oral)?? HR:??82??(Peripheral)?? RR:??20?? BP:??107/67?? SpO2:??99%?? HT:??157.000??cm?? WT:??77.00??kg?? BMI:??31.000?? Pain Score:??9?? O2 Therapy:??Room air?? General: Alert and oriented, well nourished,?No??acute distress. ??Normotensive and afebrile. ??Satting 98%.?? Ambulated to ER with a steady gait.?? Not ill looking Eye: PERRL, EOMI,?Normal??conjunctiva HENT: Normocephalic, clear tympanic membranes,?Normal?? hearing, moist oral mucosa,?No??scleral icterus,?No??sinus tenderness Neck: Supple, non-tender,?No??carotid bruits,?No??JVD,?No??lymphadenopathy Lungs: Clear to auscultation and percussion,?Non-labored?? respiration Heart:?Normal?? rate,?Regular??rhythm,?No??murmur,?No??gallop,?No??edema Abdomen: Soft, non-tender, non-distended,?Normal?? bowel sounds,?No??masses Musculoskeletal:?Normal?? range of motion and strength,?No??tenderness,?No??swelling Skin: Skin is warm, dry and pink,?No??rashes,?No??lesions Neurologic: Awake, alert and oriented X4, CN II-XII intact Psychiatric: Cooperative, appropriate mood and affect Procedure No Qualifying Data Assessment/Plan 1.??Headache, migraine, intractable??G43.919 Patient given her usual dose of??morphine 4 mg IM, Benadryl 50 mg IM and Phenergan 25 mg IM Advised to follow-up with her multiple physicians for??management of chronic migraines Orders: Benadryl, 50 mg = 1 mL, IM, Once, 0 Refill(s) Benadryl, 50 mg = 1 mL, IM, Injection, Once, First Dose: 03/19/22 6:10:00 THINNER SPRAYER, Stop Date: 03/19/22 6:10:00 THINNER SPRAYER, Physician Stop morphine 4 mg/mL preservative-free injectable solution, 4 mg = 1 mL, IM, Once, 0 Refill(s) morphine, 4 mg = 1 mL, IM, Injection, Once, First Dose: 03/19/22 6:10:00 THINNER SPRAYER, Stop Date: 03/19/22 6:10:00 THINNER SPRAYER, Physician Stop Phenergan, 25 mg = 1 mL, IM, Once, 0 Refill(s) Phenergan, 25 mg = 1 mL, IM, Injection, Once, First Dose: 03/19/22 6:10:00 THINNER SPRAYER, Stop Date: 226:10:00 THINNER SPRAYER, Physician Stop Patient Discharge Condition stable Discharge Disposition DC home Patient Education Chronic Migraine Headache, Dxiy-ut-Fogv Follow Up With When Contact Information Follow up with primary care provider Within 5 to 7 days Additional Instructions: Medication Reconciliation Changed morphine (morphine 4 mg/mL preservative-free injectable solution)1 Milliliters Intramuscular (in a muscle) once. ?? promethazine (Phenergan 25 mg oral tablet)1 tab Oral (given by mouth) every 6 hours as needed as needed for nausea/vomiting for 5 Days. Refills: 0. ?? promethazine (Phenergan)25 Milligrams Intramuscular (in a muscle) once. ?? promethazine (Phenergan)25 Milligrams Intramuscular (in a muscle) once. ?? Unchanged albuterol (albuterol 90 mcg/inh [...] 2 times a day. Refills: 3. ?? oseltamivir (oseltamivir 30 mg oral capsule)1 Capsules Oral (given by mouth) 2 times a day. Refills: 0. ?? Other Prescription (Sod Bicarb Tab 10gr 1000 Rsg)TAKE TWO TABLETS TWICE DAILY, after breakfast and dinner. ?? predniSONEtapering dose. ?? tacrolimus (tacrolimus 1 mg oral capsule, [...] COVID-19 Degenerative disc disease, cervical Difficulty sleeping Disease caused by 2019 novel coronavirus Ear drainage right Fever Flank pain Foraminal [...] joint, multiple sites Rash Right otitis externa Skin change Sore throat Sprain of knee Tachycardia Thrombocytopenia Tobacco use [...] Cigarette Use: Never. Substance Use Never Tobacco 5-9 cigarettes (between 1/4 to 1/2 pack)/day in last 30 days Tobacco Use:. Family History Cancer: Mother. Attending Attestation Stable Electronically Signed on 03/19/22 06:19 AM Felicia Roach MD Patient Care team information Personnel Name: Hermes Ramirez MD Address: Address: [facility], [address] [place] [address]
--- OUTSIDE RECORDS SUMMARY | 2024-03-20 11:33 | XMS_ITS | Continuity of Care Document ---
Author Organization [facility] Address [address] [place] [address] Care Team Providers Care Center Director Lead Teacher Name Role Phone Hermes Ramirez Primary Care Physician [phone] Encounter ONOFRE MCGRAW [id number] Date(s): 05/18/22 - 05/18/[address] [id number] Encounter Diagnosis Headache, migraine, intractable(Discharge Diagnosis) - 05/18/22 Discharge Disposition: Home or Self Care Attending [...] Ova + Parasite Exam 04/07/22 Functional Status 05/18/22 Recent Travel History No recent travel Other exposure to Infectious Disease Non e Immunizations Given and Recorded Vaccine Date Status Refusal Reason tetanus/diphth/pertuss (Tdap) adult/adol 10/18/21 Given tetanus/diphth/pertuss (Tdap) adult/adol 05/10/17 Recorded tetanus/diphth/pertuss (Tdap) adult/adol 03/20/17 Recorded tetanus/diphth/pertuss (Tdap) adult/adol 05/25/12 Recorded hepatitis B adult vaccine 11/10/17 Recorded hepatitis B adult vaccine 10/09/17 Recorded hepatitis A adult vaccine 7/23/18 Recorded Medications albuterol 90 mcg/inh aerosol inhaler 1 puffs, Inhale, every 4 hr, PRN as needed for wheezing, # 6.7 g, 0 Refill(s), Pharmacy: [place], [place], [address], cm, 09/13/21 23:53:00 CDT, Height/Length [...] needed, # 12 cap, 0 Refill(s), Pharmacy: [place], [place], [address], cm, 11/04/21 20:02:00 CDT, Height/Length [...] 18:45:00CST, Height/Length Dosing, 72.57, kg, 02/07/22 18:45:00 SCHOOL AGE PROGRAM ASSOCIATE, Weight Dosing Start Date: 02/13/22 Status: Ordered morphine 2 mg/mL preservative-free injectable solution 2 mg = 1 mL, IM, Once, 0 Refill(s) Start Date: 05/05/22 Status: Ordered oseltamivir 30 mg oral capsule 30 mg = 1 cap, Oral, BID, # 10 cap, 0 Refill(s), Pharmacy: [place], [place], [address], cm, 03/16/22 18:01:00 SCHOOL AGE PROGRAM ASSOCIATE, Height/Length Dosing, 77.11, kg, 03/16/22 18:01:00 SCHOOL AGE PROGRAM ASSOCIATE, Weight Dosing Start Date: 03/16/22 Status: Ordered [...] nausea/vomiting, # 20 tab, 0 Refill(s), Pharmacy: [place], [place], [address], cm, 09/29/21 23:03:00 CDT, Height/Length [...] 1 2 Temperature Oral [35.8-37.3 Deg C] 36.9 Deg C (05/18/22 2:05 PM) Peripheral Pulse Rate [60-100 bpm] 87 bp m (05/18/22 3:28 PM) 87 bpm (05/18/22 2:05 PM) Respiratory Rate [12-24 br/min] 18 br/mi n (05/18/22 3:28 PM) 20 br/min (05/18/22 2:05 PM) Blood Pressure [90-140/60-90 mmHg] 142/9 8mmHg *HI* (05/18/22 3:28 PM) 136/84mmHg (05/18/22 2:05 PM) Weight Dosing 74.84 kg (05/18/22 2:21 PM) Weight Estimated 74.84 kg (05/18/22 2:05 PM) Height/Length Dosing 157.480 cm (05/18/22 2:21 PM) Height/Length Estimated 157.480 cm (05/18/22 2:05 PM) Social History Social History Type Response Tobacco Current everyday tob acco user Tobacco Use:. Sex Hospital Discharge Instructions Patient Education 05/18/2022 14:32:46 Chronic Migraine Headache, Fjqr-bu-Zxya Chronic Migraine Headache A migraine headache is [...] these instructions at home: Medicines ??? Take tapg-bih-bgiggxk and prescription medicines only as told by [...] Headache and Migraine Patients (CHAMP): headachemigraine.org ??? [place] Migraine Foundation: [email or web address].org ??? National Headache Foundation: [...] Reviewed: 04/22/2020 [employer] Patient Education ?? 2021 [employer] Follow Up Care 05/18/2022 14:05:46 With:Follow up with primary care provider Address: When:5 to 7 days Physician Emergency department Note * Felicia Roach MD: PERFORM Event Display: ED Note Physician Authored Date: [id number] MISHA AJCKSON :1980 Age:41 years Sex:Female Visit Date:05/18/2022 Primary Care Physician: Hermes Ramirez MD Basic Information Time Seen: Felicia Roach MD / 05/18/2022 14:16 Chief Complaint COMPLAINING OF MIGRAINE HEADACHE RIGHT SIDE OF HEAD ??ONSET THIS AM. ??PREHOSPITAL TYLENOL 1100. ??STATES IS NORMAL MIGRAINE. 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 ??Described the headache as her??normal migraine.?? No other complaints. ??Patient??is in the ED almost every week for the same headache Review of Systems: Constitutional:?No??fevers,?No??chills,?No??sweats Eye:?No??recent visual problems ENT:?No??ear pain,?No??nasal congestion,?No??sore throat Respiratory:?No??shortness of breath,?No??cough Cardiovascular:?No??Chest pain,?No??palpitations,?No??syncope Gastrointestinal:?Nonausea,?No??vomiting,?No??diarrhea Genitourinary:?No??hematuria Clemente/Lymph:?No??bruising tendency,?No??swollen lymph glands Endocrine:?No??excessive thirst,??No??excessive hunger Musculoskeletal:??No??back pain,??No??neck pain,??No??joint pain,??No??muscle pain,??No??decreased range of motion Integumentary:?No??rash,?No??pruritus,?No??abrasions Neurologic: Alert & oriented X 4 Psychiatric:?No??anxiety,?No??depression Physical Exam Vitals & Measurements T:??36.9?C ??(Oral)?? HR:??87??(Peripheral)?? RR:??20?? BP:??136/84?? SpO2:??100%?? HT:??157.480??cm?? WT:??74.84??kg??(Estimated)?? Pain Score:??7?? O2 Therapy:??Room air?? General: Alert and oriented, well nourished,?No??acute distress. ??Blood pressure 136/84. ??Afebrile with temperature 36.9 Eye: PERRL, EOMI,?Normal??conjunctiva HENT: Normocephalic, clear tympanic [...] Qualifying Data Assessment/Plan 1.??Headache, migraine, intractable??G43.919 Patient will have a Botox injection in a few weeks according to her Orders: Benadryl, 50 mg = 1 mL, IM, Injection, Once, First Dose: 05/18/22 14:29:00 SCHOOL AGE PROGRAM ASSOCIATE, Stop Date: 05/18/2313:29:00 SCHOOL AGE PROGRAM ASSOCIATE, Physician Stop Benadryl, 50 mg = 1 mL, IM, Once, 0 Refill(s) Phenergan, 25 mg = 1 mL, IM, Injection, Once, First Dose: 05/18/22 14:29:00 SCHOOL AGE PROGRAM ASSOCIATE, Stop Date: 05/18/22 14:29:00 SCHOOL AGE PROGRAM ASSOCIATE, Physician Stop Phenergan, 25 mg = 1 mL, IM, Once, 0 Refill(s) Patient Discharge Condition Stable Discharge Disposition Discharge to home Patient Education Chronic Migraine Headache, [id number] Follow Up With When Contact Information Follow up with primary care provider Within 5 to 7 days Additional Instructions: Medication Reconciliation Changed diphenhydrAMINE (Benadryl)50 Milligrams Intramuscular (in a muscle) [...] TWICE DAILY, after breakfast and dinner. ?? sirolimus (sirolimus 2 mg oral tablet)1 [...] Mother. Attending Attestation Stable Electronically Signed on 05/18/22 02:33 PM Felicia Roach MD Patient Care team information Care Team Personnel Name: Jessee Jones EATING DISORDER SPECIALIST Position: Physician Member Role: Nurse Practitioner Address: Address: [address] [place] [address], [facility] [address] [place] [address]- Name: Latoya Marquez EATING DISORDER SPECIALIST Position: Physician Member Role: Nurse Practitioner Address: Address: [address] [place] [address]- Name: Leonila Gonzalez EATING DISORDER SPECIALIST Position: Physician Member Role: Nurse Practitioner Address: Address: [address] [place] [address]- Name: Beth Brandt EATING DISORDER SPECIALIST Position: Physician Member Role: Nurse Practitioner Address: Address: [address] [place] [address] Name: Hermes Ramirez MD Position: Physician Member Role: Informed Provider Address: Address: [address] [place] [address], [address] [place] [address]- Name: Pillo Moe EATING DISORDER SPECIALIST Position: Physician Member Role: Nurse Practitioner Address: Address: [address] [place] [address], [facility] [address] [facility] Name: Felicia Roach MD Position: Physician Member Role: Admitting Physician Address: Address: [address] [place] [address]- Name: Li Guan RN Position: Nurse Member Role: Registered Nurse Care Team Related Persons Name: STACIA JONES Address: Home [address] [place] [phone] Name: ROBYN JAMA Address: Home
--- OUTSIDE RECORDS SUMMARY | 2024-03-20 11:34 | XMS_ITS | Continuity of Care Document ---
Author Organization [facility] [place] Address [address] [place] [address]- Care Team Providers Care Retail Sales Merchandiser Name Role Phone Hermes Ramirez Primary Care Physician Encounter ONOFRE Date(s): 06/27/22 - 06/27/22 [facility] [place] [address] [place] [address]- Encounter Diagnosis Weight gain(Discharge Diagnosis) - 06/27/22 Right shoulder pain(Discharge Diagnosis) - 06/27/22 Discharge Disposition: Home or Self Care Attending Physician: Pillo Moe [employer] SAL[employer] ENGINEER Allergies, Adverse Reactions, Alerts Substance Reaction Severity [...] Radiology* MRI Shoulder w/o Contrast Right 06/27/22 Functional Status 06/27/22 Other exposure to Infectious Disease Non e [...] wheezing, # 6.7 g, 0 Refill(s), Pharmacy: [place], [place], 73, cm, 09/13/21 23:53:00 CDT, Height/Length [...] needed, # 12 cap, 0 Refill(s), Pharmacy: [place], [place], 157, cm, 11/04/21 20:02:00 CDT, Height/Length Dosing, 73, kg, 11/04/21 20:02:00 CDT, Weight Dosing Start Date: 11/04/21 Status: Ordered doxycycline hyclate 100 mg oral capsule 100 mg = 1 cap, Oral, BID, X 10 days, # 20 cap, 0 Refill(s), 06/28/22 16:36:00 CDT, Pharmacy: [id number], 157.48, cm, 06/18/22 14:40:00 CDT, Height/Length Dosing, [...] BID, # 180 tab, 3 Refill(s), Pharmacy: [facility], 157.48, cm, 02/07/22 18:45:00CST, Height/Length Dosing, 72.57, kg, 02/07/22 18:45:00 PICK REMOVER, Weight Dosing Start Date: 02/13/22 Status: Ordered Pepcid 20 mg oral tablet 20 mg = 1 tab, Oral, BID, 0 Refill(s) Start Date: 09/29/20 Status: Ordered Phenergan 25 mg oral tablet 25 mg = 1 tab, Oral, every 6 hr, PRN as needed for nausea/vomiting, # 20 tab, 0 Refill(s), Pharmacy: [facility] - [place], [place], 157, cm, 09/29/21 23:03:00 CDT, Height/Length [...] Most recent to oldest [Reference Range]: 1 Peripheral Pulse Rate [60-100 bpm] 82 bp m (06/27/22 3:34 PM) Blood Pressure [90-140/60-90 mmHg] 128/8 0mmHg (06/27/22 3:34 PM) Weight 87.09 kg (06/27/22 3:34 PM) Weight Measured (lbs) 192 lb (06/27/22 3:34 PM) Social History Social History Type Response Tobacco Current everyday tob acco user Tobacco Use:. Sex Physician Outpatient Note * Pillo Moe [employer] SAL[employer] ENGINEER: PERFORM Event Display: Office Clinic Note Physician Authored Date: [id number] MISHA JACKSON :1980 Age:41 years Sex:Female Visit Date:06/27/2022 Primary Care Physician: Hermes Ramirez MD Chief Complaint C/o right shoulder pain x months Discuss weight gain History of Present Illness Present for complaints of ongoing right shoulder discomfort that has been present for months and worsening. She states she does not recall a specific injury but her symptoms include decreased strength, painful movements, and decreased range of motion. ?? She states she has gained a significant amount of weight despite watching what she eats. She states she discussed it with her transplant doctors and they did a TSH and A1C that were normal. Review of Systems Gen- Denies fever, chills, recent illness. Admits to weight gain, fatigue. ENT- Denies symptoms Derm- Denies rash, itching CV- Denies chest pain, pressure, or swelling Resp- Denies acute difficulty breathing, cough, wheezing Abd- Denies N/V/D, weight loss, abdominal pain Neuro- Denies focal deficits MSK-Admits to right shoulder pain, decreased ROM, pain with sleeping on that side. Psych- Denies SI/HI. Admits to some anxiety and feeling down about her appearance. Physical Exam Vitals & Measurements HR:??82??(Peripheral)?? BP:??128/80?? SpO2:??98%?? WT:??87.09??kg?? General: Alert and cooperative. In no acute distress. Non toxic appearance Skin: Normal skin temperature and??Normalcolor for race. No rashes. ENT: Oral mucosa is pink and moist. Respiratory: Respiratory effort??easy and unlabored. Cardiovascular:??Regular rate. Peripheral pulses??strong. Neuro:Oriented x 3. Pupils??Equal and round M/S: Normal strength and tone. Gait??steady. Right shoulder AROM is reduced. + crepitus with PROM. + empty can, Marcelo and apprehension for pain and strength 2/5 when compared to normal left exam and 5/5 strength. Distal sensation and circulation intact. Depression Screen?? PHQ 2?? PHQ 9?? Feeling Down, Depressed, Hopeless: More than half the days Detailed Depression Screen Score: 4 Initial Depression Screen Score: 4 Score Feeling Bad About Yourself: Several days Little Interest - Pleasure in Activities: More than half the days Feeling Tired or Little Energy: More than half the days ?? Moving or Speaking Slowly: Not at all ?? Poor Appetite or Overeating: Not at all ?? Thoughts Better Off or Hurting Self: Not at all ?? Total Depression Screen Score: 8 ?? Trouble Concentrating: Not at all ?? Trouble Falling or Staying Asleep: Several days Assessment/Plan 1.??Weight gain??R63.5 Will obtain some further labs for evaluation. I suspect it is secondary to her anti-rejection meds and steroid use Ordered: ACTH, Plasma LC, Blood, Routine, 06/27/22, Once, Lab Collect, Weight gain, Order for future visit Cortisol - AM LC, Blood, Routine, 06/27/22, Once, Lab Collect, Weight gain, Order for future visit Free T4, Blood, Routine, 06/27/22, Once, Lab Collect, Weight gain, Order for future visit Thyroid Peroxidase (TPO) Ab LC, Blood, Routine, 06/27/22, Once, Lab Collect, Weight gain, Order forfuture visit ?? 2.??Right shoulder pain??M25.511 Suspect a rotator cuff tear. Has been ongoing for months and worsening so will order an MRI since she cannot take anti-inflammatories. Ordered: MRI Shoulder w/o Contrast Right, 06/27/22, Routine, Reason: right shoulder pain and decreased ROM, No, No, Transport Mode: Ambulatory, Right shoulder pain ?? Future Orders ACTH, Plasma LC, Blood, Routine, 06/27/22, Once, Lab Collect, Weight gain, Order for future visit Cortisol - AM LC, Blood, Routine, 06/27/22, Once, Lab Collect, Weight gain, Order for future visit Free T4, Blood, Routine, 06/27/22, Once, Lab Collect, Weight gain, Order for future visit Thyroid Peroxidase (TPO) Ab LC, Blood, Routine, 06/27/22, Once, Lab Collect, Weight gain, Order forfuture visit MRI Shoulder w/o Contrast Right, 06/27/22, Routine, Reason: right shoulder pain and decreased ROM, No, No, Transport Mode: Ambulatory, Right shoulder pain Problem List/Past Medical History Ongoing Acne Anxiety [...] Pain, joint, multiple sites Right shoulder pain Sprain of knee Squamous cell carcinoma [...] transplantation (05/08/2020)??? delivery???cyst removal from breast???Hernia???liver transplant Medications albuterol 90 mcg/inh aerosol inhaler, 1 puffs, Inhale, every 4 hr, PRN amLODIPine 10 mg oral tablet aspirin 81 mg oral delayed release tablet, 81 mg= 1 tab, Oral, Daily buPROPion 100 mg/12 hours (SR) oral tablet, extended release butalbital/acetaminophen/caffeine 50 mg-300 mg-40 mg oral capsule, 1 cap, Oral, every 4 hr, PRN doxycycline hyclate 100 mg oral capsule, 100 mg= 1 cap, Oral, BID gabapentin 300 mg oral capsule LORazepam 0.5 mg oral tablet Metoprolol Tartrate 25 mg oral tablet, 1 tab, Oral, BID Pepcid 20 mg oral tablet, 20 mg= 1 tab, Oral, BID Phenergan 25 mg oral tablet, 25 mg= 1 tab, Oral, every 6 hr, PRN sirolimus 2 mg oral tablet, 2 mg= 1 tab, Oral, Daily Sod Bicarb Tab 10gr 1000 Rsg tacrolimus 1 mg oral capsule, extended release, 7 mg= 7 cap, Oral, Daily Topamax 25 mg oral tablet, 50 mg= 2 tab, Oral, BID venlafaxine 37.5 mg oral capsule, extended release, 75 mg= 2 cap, Oral, Daily Allergies NSAIDs Toradol??(Kidney failure as a complication of care) aspirin??(Medication interaction) azithromycin??(Unknown) codeine??(Unknown, Itching) gentamicin erythromycin??(Medication interaction) Social History Alcohol Never Electronic Cigarette/Vaping Electronic Cigarette Use: Never. Substance Use Never Tobacco Current everyday tobacco user Tobacco Use:. Family History Cancer: Mother. Immunizations Vaccine Date Status tetanus/diphth/pertuss (Tdap) adult/adol 10/18/2021 Given hepatitis B adult vaccine 11/10/2017 Recorded hepatitis B adult vaccine 10/09/2017 Recorded hepatitis A adult vaccine 10/09/2017 Recorded tetanus/diphth/pertuss (Tdap) adult/adol 05/10/2017 Recorded tetanus/diphth/pertuss (Tdap) adult/adol 03/20/2017 Recorded tetanus/diphth/pertuss (Tdap) adult/adol 05/25/2012 Recorded Electronically Signed on 06/27/22 04:06 PM Pillo Moe [employer] ENGINEER Patient Care team information Care Team Personnel Name: Jessee Jones [employer] SALES ENGINEER Position: Physician Member Role: Nurse Practitioner Address: Address: [address] [place] [address], [address] Name: Latoya Marquez [employer] SALES ENGINEER Position: Physician Member Role: Nurse Practitioner Address: Address: [address] [place] [address]- Name: Leonila Gonzalez [employer] SALES ENGINEER Position: Physician Member Role: Nurse Practitioner Address: Address: [address] [place] [address] Name: Beth Brandt [employer] SALES ENGINEER Position: Physician Member Role: Nurse Practitioner Address: Address: [address] [place] [address] Name: Hermes Ramirez MD Position: Physician Member Role: Informed Provider Address: Address: [address] [place] [address], [address] [place] [address]- Name: Pillo Moe [employer] SAL[employer] ENGINEER Position: Physician Member Role: Nurse Practitioner Address: Address: [address] [place] [address], [facility] [address] [facility] Care Team Related Persons Name: STACIA JONES Address: Home [address] [place], [place] [id number] Name: ROBYN JAMA Address: Home
--- OUTSIDE RECORDS SUMMARY | 2024-03-20 11:34 | XMS_ITS | Continuity of Care Document ---
Author Organization [facility] Address [address] [place] [address] Care Team Providers Care Produce Manager Name Role Phone Hermes Ramirez Primary Care Physician [phone] Encounter ONOFREEver [facility]RAW [id number] Date(s): 11/29/21 - 11/29/[address] [address] [place] Encounter Diagnosis Bilateral otitis externa(Discharge Diagnosis) - 11/29/21 Headache(Discharge Diagnosis) - 11/29/21 Discharge Disposition: Home or Self Care Attending Physician: Akil Casas MD Admitting Physician: Akil Casas MD Allergies, Adverse Reactions, Alerts Substance Reaction Severity Status codeine Unknown Itching Severe Active gentamicin Moderate Active erythromycin Medication interaction Activ e azithromycin Unknown Severe Active aspirin Medication interaction Severe Activ e NSAIDs Severe Active Toradol Kidney failure as a complication of care Severe Active Assessment and Plan Future Appointments Functional Status 11/29/21 Other exposure to Infectious Disease Non e [...] wheezing, # 6.7 g, 0 Refill(s), Pharmacy: [facility] - [place], [place], 73, cm, 09/13/21 23:53:00 CDT, Height/Length [...] mL, IM, Once, 0 Refill(s) Start Date: 11/25/21 Status: Ordered butalbital/acetaminophen/caffeine 50 mg-300 mg-40 mg oral capsule 1 cap, Oral, every 4 hr, PRN as needed, # 12 cap, 0 Refill(s), Pharmacy: [place], [place], [address], cm, 11/04/21 20:02:00 CDT, Height/Length Dosing, 73, kg, 11/04/21 20:02:00 CDT, Weight Dosing Start Date: 11/04/21 Status: Ordered cefaclor 500 mg oral tablet, extended release 500 mg = 1 tab, Oral, BID, # 20 tab, 0 Refill(s), Pharmacy: [place], [place], [address], cm, 11/18/21 23:46:00 CDT, Height/Length Dosing, 73, kg, 11/18/21 23:46:00 CDT, Weight Dosing Start Date: 11/19/21 Stop Date: 11/29/21 Status: Ordered Fioricet with Codeine 50 mg-300 mg-40 mg-30 mg oral capsule 1 cap, Oral, every 4 hr, PRN as needed, # 12 cap, 0 Refill(s), Pharmacy: [place], [place], [address], cm, 11/29/21 8:04:00 CDT, Height/Length Dosing, 72.57, kg, 11/29/21 8:04:00 CDT, Weight Dosing Start Date: 11/29/21 Status: Ordered gabapentin 300 mg oral capsule TAKE ONE CAPSULE AT BEDTIME Start Date: 12/18/20 Status: Ordered LORazepam 0.5 mg oral tablet TAKE ONE TABLET BY MOUTH DAILY NEEDED FOR ANXIETY Start Date: 12/18/20 Status: Ordered Metoprolol Tartrate 25 mg oral tablet 25 mg = 1 tab, Oral, BID, # 180 tab, 3 Refill(s), Pharmacy: [place], [place], [address], cm, 10/22/20 21:26:00 CDT, Height/Length Dosing, 74, kg, 10/22/20 21:26:00 CDT, Weight Dosing Start Date: 12/18/20 Status: Ordered morphine 4 mg/mL preservative-free injectable solution 4 mg = 1 mL, IM, Once, 0 Refill(s) Start Date: 11/25/21 Status: Ordered ondansetron 4 mg oral tablet, disintegrating 4 mg = 1 tab, Oral, every 6 hr, PRN nausea/vomiting, # 12 tab, 0 Refill(s), Pharmacy: [place], [place], [address], cm, 11/04/21 20:02:00 CDT, Height/Length Dosing, 73, kg, 11/04/21 20:02:00 CDT, Weight Dosing Start Date: 11/04/21 Stop Date: 11/07/21 Status: Ordered Pepcid 20 mg oral tablet 20 mg = 1 tab, Oral, BID, 0 Refill(s) Start Date: 09/29/20 Status: Ordered Phenergan 25 mg = 1 mL, IM, Once, 0 Refill(s) Start Date: 11/25/21 Status: Ordered Phenergan 25 mg oral tablet 25 mg = 1 tab, Oral, every 6 hr, PRN as needed for nausea/vomiting, # 20 tab, 0 Refill(s), Pharmacy: [place], [place], [address], cm, 09/29/21 23:03:00 CDT, Height/Length [...] headache(Confirmed) Active Pain, joint, multiple sites(Confirmed) Active Otalgia of right ear(Confirmed) Active Right otitis externa(Confirmed) Active Ear drainage right(Confirmed) Active Numbness and tingling of rig ht [...] Oral [35.8-37.3 Deg C] 37.1 Deg C (11/29/21 7:48 AM) Peripheral Pulse Rate [60-100 bpm] 100 b pm (11/29/21 7:48 AM) Respiratory Rate [12-24 br/min] 16 br/mi n (11/29/21 7:48 AM) Blood Pressure [90-140/60-90 mmHg] 135/9 4mmHg (11/29/21 7:48 AM) Weight Dosing 72.57 kg (11/29/21 8:04 AM) Weight Estimated 72.57 kg (11/29/21 7:48 AM) Height/Length Dosing 157.480 cm (11/29/21 8:04 AM) Height/Length Estimated 157.480 cm (11/29/21 7:48 AM) Social History Social History Type Response Smoking Status 5-9 cigarettes (betw een 1/4 to 1/2 pack)/day in last 30 days entered on: 05/12/21 Sex Hospital Discharge Instructions Patient Education 11/29/2021 08:57:23 Chronic Migraine Headache Chronic Migraine Headache A migraine is a type of headache that is usually stronger and more sudden than other headaches. Migraines are characterized by an intense pulsing, throbbing pain that is usually only present on one side of the head. Migraine pain usually gets worse with activity. Migraines can cause nausea, vomiting, sensitivity to light and sound, and vision changes. Migrainesthat keep coming back are called recurrent migraines. A migraine is called a chronic migraine if ithappens at least 15 days in a month for more than 3 months. Talk with your health care provider about what things may bring on (trigger) your migraines. What are the causes? The exact cause of this condition is not known. However, a migraine may be caused when nerves in the brain become irritated and release chemicals that cause inflammation of blood vessels. The inflammation of the blood vessels causes pain. Migraines may be triggered or caused by: ??? Smoking. ??? Certain foods and drinks, such as: ??? Aged cheese. ??? Chocolate. ??? Alcohol. ??? Caffeine. ??? Foods or drinks that contain nitrates, glutamate, aspartame, MSG, or tyramine. ??? Medicines, such as control pills or some blood pressure medicines. Other things that may trigger a migraine include: ??? Menstruation. ??? Emotional stress. ??? Lack of sleep or too much sleep. ??? Tiredness (fatigue). ??? Bright lights or loud noises. ??? Odors. ??? Weather changes and high altitude. What increases the risk? The following factors may make you more likely to experience chronic migraine: ??? Having migraines or a family history of migraines. ??? Having a mental health condition, such as depression or anxiety. ??? Having to take a lot of pain medicine. ??? Having sleep problems. ??? Having heart disease, diabetes, or obesity. What are the signs or symptoms? Symptoms of a migraine vary for each person and may include: ??? Pulsating or throbbing pain. ??? Pain that is usually only present on one side of the head. In some cases, the pain may be on both sides of the head or around the head or neck. ??? Severe pain that prevents you from doing daily activities. ??? Pain that gets worse with physical activity. ??? Nausea, vomiting, or both. ??? Pain with exposure to bright lights, loud noises, or activity. ??? General sensitivity to bright lights, loud noises, or smells. ??? Dizziness. A sign that a migraine is becoming chronic is an increasing number of migraine episodes. It is considered chronic if the migraine happens at least 15 days in a month for more than 3 months. How is this diagnosed? This condition is often diagnosed based on: ??? Your symptoms and medical history. ??? A physical exam. You may also have tests, including: ??? A CT scan or an MRI of your brain. These imaging tests cannot diagnose migraines, but they can help to rule out other causes of headaches. ??? Taking fluid from the spine (lumbar puncture) and analyzing it (cerebrospinal fluid analysis, or CSF analysis). ??? Blood tests. How is this treated? This condition is treated with: ??? Medicines. These help to: ??? Lessen pain and nausea. ??? Prevent migraines. ??? Lifestyle changes, such as changes to your diet or sleeping patterns. ??? Behavior therapy. This may include: ??? Relaxation training. ??? Biofeedback. This is a treatment that teaches you to relax and use your brain to lower your heart rate and control your breathing. ??? Cognitive behavioral therapy (CBT). This is a form of talk therapy. This therapy helps you set goals and follow up on the changes that you make. ??? Acupuncture. ??? Using a device that provides electrical stimulation to your nerves, which can relieve pain (neuromodulation therapy). ??? Surgery, if the other treatments are not working. Follow these instructions at home: Medicines ??? Take dufh-jtj-yihwfqw and prescription medicines only as told by your health care provider. ??? Ask your health care provider if the medicine prescribed to you requires you to avoid driving or using machinery. Lifestyle ??? Do not use any products that contain nicotine or tobacco, such as cigarettes, e-cigarettes, andchewing tobacco. If you need help quitting, ask your health care provider. ??? Do not drink alcohol. ??? Get 7???9 hours of sleep each night, or the amount of sleep recommended by your health care provider. ??? Find ways to manage stress, such as meditation, deep breathing, or yoga. ??? Maintain a healthy weight. If you need help losing weight, ask your health care provider. ??? Exercise regularly. Aim for 150 minutes of moderate-intensity exercise, such as walking, biking, or yoga, or 75 minutes of vigorous exercise each week. Vigorous exercise includes running, circuittraining, and swimming. General instructions ??? Keep a journal to find out what triggers your migraines so you can avoid these triggers. For example, write down: ??? What you eat and drink. ??? How much sleep you get. ??? Any change to your diet or medicines. ??? Lie down in a dark, quiet room when you have a migraine. ??? Try placing a cool towel over your head when you have a migraine. ??? Keep lights dim, if bright lights bother you or make your migraines worse. ??? Keep all follow-up visits as told by your health care provider. This is important. Where to find more information ??? Coalition for Headache and Migraine Patients (CHAMP): headachemigraine.org ??? [place] Migraine Foundation: americanmigrainefoundation.org ??? National Headache Foundation: headaches.org Contact a health care provider if: ??? Your pain does not improve, even with medicine. ??? Your migraines continue to return, even with medicine. Get help right away if: ??? Your migraine becomes severe and medicine does not help. ??? You have a stiff neck and fever. ??? You have a loss of vision. ??? You have muscle weakness or loss of muscle control. ??? You start losing your balance, or you have trouble walking. ??? You feel like you may faint, or you faint. ??? You start having sudden and unexpected, severe headaches. ??? You have a seizure. Summary ??? Migraine headaches are usually stronger and more sudden than other headaches. Migraines are characterized by an intense pulsing, throbbing pain that is usually only present on one side of the head. ??? Migraines that keep coming back are called recurrent migraines. A migraine is called a chronic migraine if it happens 15 days in a month for more than 3 months. ??? Certain things may trigger migraines, such as lack of sleep or too much sleep, smoking, certainfoods, alcohol, stress, and certain medicines. ??? Your treatment plan may include medicines, lifestyle changes, and behavior therapy. This information is not intended to replace advice given to you by your health care provider. Make sure you discuss any questions you have with your health care provider. Document Revised: 04/22/2020 Document Reviewed: 04/22/2020 [employer] Patient Education ?? 2021 [employer]. 11/29/2021 08:57:19 Otitis Externa Otitis Externa Otitis externa is an infection of the outer ear canal. The outer ear canal is the area between the outside of the ear and the eardrum. Otitis externa is sometimes called swimmer's ear. What are the causes? Common causes of this condition include: ??? Swimming in dirty water. ??? Moisture in the ear. ??? An injury to the inside of the ear. ??? An object stuck in the ear. ??? A cut or scrape on the outside of the ear or in the ear canal. What increases the risk? You are more likely to develop this condition if you go swimming often. What are the signs or symptoms? The first symptom of this condition is often itching in the ear. Later symptoms of the condition include: ??? Swelling of the ear. ??? Redness in the ear. ??? Ear pain. The pain may get worse when you pull on your ear. ??? Pus coming from the ear. How is this diagnosed? This condition may be diagnosed by examining the ear and testing fluid from the ear for bacteria and funguses. How is this treated? This condition may be treated with: ??? Antibiotic ear drops. These are often given for 10???14 days. ??? Medicines to reduce itching and swelling. Follow these instructions at home: ??? If you were prescribed antibiotic ear drops, use them as told by your health care provider. Do not stop using the antibiotic even if you start to feel better. ??? Take ntrh-duw-itqxqwx and prescription medicines only as told by your health care provider. ??? Avoid getting water in your ears as told by your health care provider. This may include avoiding swimming or water sports for a few days. ??? Keep all follow-up visits. This is important. How is this prevented? Keep your ears dry. Use the corner of a towel to dry your ears after you swim or bathe. ??? Avoid scratching or putting things in your ear. Doing these things can damage the ear canal or remove the protective wax that lines it, which makes it easier for bacteria and funguses to grow. ??? Avoid swimming in lakes, polluted water, or swimming pools that may not have enough chlorine. Contact a health care provider if: ??? You have a fever. ??? Your ear is still red, swollen, painful, or draining pus after 3 days. ??? Your redness, swelling, or pain gets worse. ??? You have a severe headache. Get help right away if: ??? You have redness, swelling, and pain or tenderness in the area behind your ear. Summary ??? Otitis externa is an infection of the outer ear canal. ??? Common causes include swimming in dirty water, moisture in the ear, or a cut or scrape in the ear. ??? Symptoms include pain, redness, and swelling of the ear canal. ??? If you were prescribed antibiotic ear drops, use them as told by your health care provider. Do not stop using the antibiotic even if you start to feel better. This information is not intended to replace advice given to you by your health care provider. Make sure you discuss any questions you have with your health care provider. Document Revised: 05/19/2021 Document Reviewed: 05/19/2021 [employer] Patient Education ?? 2021 [employer]. Follow Up Care 11/29/2021 07:48:41 With:Hermes Ramirez MD Address: [address] [place] [address], [address] [place] [address]- When:1 month Patient Care team information Personnel Name: Hermes Ramirez MD Address: Address: [address] [place] [address], [address]
--- OUTSIDE RECORDS SUMMARY | 2024-03-20 11:34 | XMS_ITS | Continuity of Care Document ---
Author Organization [facility] Address [address] [place] [address] Care Team Providers Care Administrative Assistant Coordinator Name Role Phone SophieHermes west Primary Care Physician [phone] Encounter [facility]NOFRE [facility] [id number] Date(s): 06/11/21 - 06/11/21 [address] [address] [place] [address] [place] Discharge Disposition: Home or Self Care Attending Physician: Akil Ramirez MD Admitting Physician: Akil Ramirez MD Allergies, Adverse Reactions, Alerts Substance Reaction Severity Status gentamicin Moderate Active erythromycin Medication interaction Activ e aspirin Medication interaction Activ e Toradol Kidney failure as a complication of care Active NSAIDs Severe Active Assessment and Plan Future Appointments Future Scheduled Tests Radiology* MRI Spine Cervical w/o Contrast 06/11/21 Immunizations Given and Recorded Vaccine Date Status [...] 0 Refill(s) Start Date: 08/18/20 Status: Ordered gabapentin 300 mg oral capsule [...] BID, # 180 tab, 3 Refill(s), Pharmacy: [place], [place], [address], cm, 10/22/20 21:26:00 CDT, Height/Length [...] COVID-19(Confirmed) Active Migraine(Confirmed) Active Difficulty sleeping(Confirmed) Active Gout(Confirmed) Active History of liver transplant(Confirmed) Active Hx of migraine headaches(Confirmed) Active Heart murmur(Confirmed) Active History of burning pain in leg(Confirmed) Active History of kidney transplant(Confirmed) Active Idiopathic thrombocytopenic purpura(Confirmed) Active Liver transplant disorder(Confirmed) Active Lumbar back pain(Confirmed) Active Migraine headache(Confirmed) Active Headache, chronic migraine w ithout aura(Confirmed) Active Pain, joint, multiple sites(Confirmed) Active Numbness [...] liver transplant Complete d Results Radiology Reports * Exam Date Time Procedure Performing Provider Status 06/11/21 4:10 PM XR Spine Cervical 4 or 5 Views Marleny Ardon RT(R)(M); Jack (Verified) Notes: (XR Spine Cervical 4 or 5 Views) Reason For Exam: neck pain XR Spine Cervical 4 or 5 Views EXAM DESCRIPTION: XR Spine Cervical 4 or 5 Views REASON FOR STUDY: neck pain/no known injury DURATION: several years Comparisons: 06/25/16 PREVIOUS SURGERY: liver transplant/kidney transplant/excisional biopsy of right breast/hernia repair/gb//tubal ligation SMOKING HISTORY: 1/2 ppd smoker TECHNIQUE: Frontal, lateral, bilateral oblique, swimmer's and odontoid radiographic views acquired of the cervical spine. COMPARISON: Right cervical spine radiographs dated 06/25/2016. FINDINGS: The C7-T1 level is suboptimally visualized due to overlapping shoulder summation. Straightening of the remainder of the cervical lordosis. Mild endplate degenerative changes and marginal spur formation at C5-C6, C6-C7 and to lesser extent remainder of the cervical levels. There is no significant osseous neural foraminal narrowing. No prevertebral soft tissue swelling. IMPRESSION: Mild degenerative changes favoring C5-C6 and C6-C7 have slightly progressed when compared to the previous available radiographs of 06/25/2016. THIS IS AN ELECTRONICALLY VERIFIED FINAL REPORT 06/11/2021 4:51 PM - Electronically signed by Anthony Betancourt D.O. AP: AP Report ID: [id number] Reading Location: [place] [address] Final Dictated by: Anthony Betancourt DO Dictated DT/TM: 06/11/2021 4:53 pm Signed by: Anthony Betancourt DO Signed (Electronic Signature): 06/11/2021 4:53 pm Social History Social History Type Response Smoking Status 5-9 cigarettes (betw een 1/4 to 1/2 pack)/day in last 30 days entered on: 05/12/21 Sex Note * Anthony Betancourt DO: VERIFY, VERIFY, PERFORM Event Display: Report Authored Date: [id number] EXAM DESCRIPTION: XR Spine Cervical 4 or 5 Views REASON FOR STUDY: neck pain/no known injury DURATION: several years Comparisons: 06/25/16 PREVIOUS SURGERY: liver transplant/kidney transplant/excisional biopsy of right breast/hernia repair/gb//tubal ligation SMOKING HISTORY: 1/2 ppd smoker TECHNIQUE: Frontal, lateral, bilateral oblique, swimmer's and odontoid radiographic views acquired of the cervical spine. COMPARISON: Right cervical spine radiographs dated 06/25/2016. FINDINGS: The C7-T1 level is suboptimally visualized due to overlapping shoulder summation. Straightening of the remainder of the cervical lordosis. Mild endplate degenerative changes and marginal spur formation at C5-C6, C6-C7 and to lesser extent remainder of the cervical levels. There is no significant osseous neural foraminal narrowing. No prevertebral soft tissue swelling. IMPRESSION: Mild degenerative changes favoring C5-C6 and C6-C7 have slightly progressed when compared to the previous available radiographs of 06/25/2016. THIS IS AN ELECTRONICALLY VERIFIED FINAL REPORT 06/11/2021 4:51 PM - Electronically signed by Anthony Betancourt D.O. AP: AP Report ID: [id number] Reading Location: [id number] Final Dictated by: Anthony Betancourt DO Dictated DT/TM: 06/11/2021 4:53 pm Signed by: Anthony Betancourt DO Signed (Electronic Signature): 06/11/2021 4:53 pm Care Team Personnel Name: eHrmes Ramirez MD Address: [address] [place] [address], [address]
--- OUTSIDE RECORDS SUMMARY | 2024-03-20 11:34 | XMS_ITS | Continuity of Care Document ---
Author Organization [facility] Address [address] [place] [address] Care Team Providers Care Roads Superintendent Name Role Phone Hermes Ramirez Primary Care Physician [phone] Encounter ONOFRE [facility] [id number] Date(s): 07/19/23 - 07/19/[address] [address]- [place] Discharge Disposition: Left Without Being Seen Attending Physician: Jesus Khan MD Allergies, Adverse Reactions, [...] Appointments Future Scheduled Tests Radiology* MRI Spine Lumbar w/o Contrast 07/20/23 * MRI Spine Thoracic w/o Contrast 07/20/23 * MG Mammo Diagnostic Bilateral w/ Chad [...] Daily, # 30 tab, 11 Refill(s), Pharmacy: [facility] - [place], [place], [address], cm, 01/04/23 15:03:00 CDT, Height/Length Dosing, 81.65, kg, 01/04/23 15:03:00 CDT, Weight Dosing Start Date: 01/11/23 Status: Ordered aspirin 81 mg oral delayed release tablet 81 mg = 1 tab, Oral, Daily, # 30 tab, 0 Refill(s) Start Date: 04/05/21 Status: Ordered clindamycin 300 mg oral capsule 300 mg = 1 cap, Oral, every 8 hr, # 21 cap, 0 Refill(s), 07/26/23 6:12:00 PM CDT, [facility]: [id number], 157.[address], cm, 07/19/23 17:49:00 CDT, Height, 81.65, kg, 07/19/23 18:00:00 CDT, Weight Dosing Start Date: 07/19/23 Stop Date: 07/26/23 Status: Ordered gabapentin 300 mg oral capsule [...] BID, # 60 cap, 11 Refill(s), Pharmacy: [facility] [place], [address], cm, 01/04/23 15:03:00 CDT, Height/Length Dosing, 81.65, kg, 01/04/23 15:03:00 CDT, Weight Dosing Start Date: 01/11/23 Status: Ordered pantoprazole 40 mg oral delayed release tablet 1 tab, Oral, Daily, # 90 tab, 0 Refill(s), [facility]: [id number], 157.[address], cm, 06/07/23 16:07:00 CDT, Height, 89.36, kg, 06/19/23 15:32:00 CDT, Weight Dosing Start Date: 06/20/23 Status: Ordered Pepcid 20 mg oral tablet 20 mg = 1 tab, Oral, BID, 0 Refill(s) Start Date: 09/29/20 Status: Ordered predniSONE 5 mg oral delayed release tablet 5 mg = 1 tab, Oral, Daily, # 30 tab, 0 Refill(s) Start Date: 06/19/23 Status: Ordered sucralfate 1 g oral tablet 1 tab, Oral, QID, # 360 tab, 0 Refill(s), Pharmacy: [id number], 157.48, cm, 06/07/23 16:07:00 CDT, Height, 89.36, kg, 06/19/23 15:32:00 CDT, Weight Dosing Start Date: 06/20/23 Status: Ordered venlafaxine 37.5 mg oral capsule, [...] Completed liver transplant Complete d 1normal 2normal Social History Social History Type Response Tobacco Current everyday tob acco user Tobacco Use:. 1 Sex 1Pt states that she smokes half a pack a day. Patient Care team information Care Team Personnel Name: Jessee Jones [employer] Position: Physician Member Role: Nurse Practitioner Address: Address: [address] [place] [address], [address] [place] [address]- Name: Latoya Marquez [employer] Position: Physician Member Role: Nurse Practitioner Address: Address: [address] [place] [address] Name: Leonila Gonzalez [employer] Position: Physician Member Role: Nurse Practitioner Address: Address: [address] [place] [address] Name: Beth Brandt [employer] Position: Physician Member Role: Nurse Practitioner Address: Address: [address] [place] [address] Name: Hermes Ramirez MD Position: Physician Member Role: Informed Provider Address: Address: [address] [place] [address], [address] Name: Pillo Moe NP Position: Physician Member Role: Nurse Practitioner Address: Address: [address] [place] [address], [address] [facility] Care Team Related Persons Name: STACIA JONES Address: Home [address] [id number] Name: MADY CHEN Name: MADY CHEN
--- OUTSIDE RECORDS SUMMARY | 2024-03-20 11:34 | XMS_ITS | Continuity of Care Document ---
Author Organization [facility] Address [address] [place] [address] Care Team Providers Care Ship Design Teacher Name Role Phone SophieHermes west Primary Care Physician Encounter [place] [id number] Date(s): 08/09/23 - 08/09/[address] [phone]- [place] Encounter Diagnosis Systemic viral illness(Discharge Diagnosis) - 08/09/23 Mild nausea(Discharge Diagnosis) - 08/09/23 Discharge Disposition: Home or Self Care Attending Physician: Andrew Francis DO Admitting Physician: Andrew Francis DO Allergies, Adverse Reactions, Alerts Substance Reaction Severity Status codeine Unknown Itching Severe Active gentamicin Moderate Active erythromycin Medication interaction Activ e azithromycin Unknown Severe Active aspirin Medication interaction Severe Activ e morphine 1 redness Itching Mild Active Toradol Kidney failure as a complication of care Severe Active NSAIDs Severe Active 1localized reaction at iv site Assessment and Plan Extracted from: Title:ED Provider Note Author:Andrew Francis Date:08/09/23 Assessment/Plan Mild nausea??R11.0 Systemic viral illness??B34.9 Orders: acetaminophen, 1,000 mg = 100 mL, IV Piggyback, Soln-IV, every 8 hr, PRN pain, moderate, Administer over: 15 minutes, First Dose: 08/09/23 12:01:00 CDT, Routine ondansetron 4 mg oral tablet, disintegrating, 4 mg = 1 tab, Oral, every 8 hr, PRN as needed for nausea/vomiting, X 3 days, # 10 tab, 0 Refill(s), 08/12/23 13:06:00 CDT, Pharmacy: [id number], 157.48, cm, 08/08/23 17:40:00 CDT, Height, 81.65, kg, 08/08/23 17:43:00 CDT, Weight Dosing Saline Lock Insert, 08/09/23 12:01:00 CDT, Once, Stop date 08/09/23 12:01:00 CDT Patient Discharge Condition good Discharge Disposition home Patient Education Viral Illness, Adult Follow Up With When Contact Information Follow up with primary care provider Within 1 to 2 days Additional Instructions: Future Appointments Future Scheduled Tests Radiology* [facility] Mammo Diagnostic Bilateral w/ Chad 08/24/23 [...] Daily, # 30 tab, 11 Refill(s), Pharmacy: [place], [place], 157.48, cm, 01/04/23 15:03:00 CDT, Height/Length Dosing, 81.65, kg, 01/04/23 15:03:00 CDT, Weight Dosing Start Date: 01/11/23 Status: Ordered aspirin 81 mg oral delayed release tablet 81 mg = 1 tab, Oral, Daily, # 30 tab, 0 Refill(s) Start Date: 04/05/21 Status: Ordered gabapentin 300 mg oral capsule 600 mg = 2 cap, Oral, BID, # 120 cap, 2 Refill(s), Pharmacy: [id number] [place], 157.48, cm, 07/23/23 17:59:00 CDT, Height, 88.45, kg, 07/26/23 15:49:00 CDT, Weight Dosing Start Date: 07/26/23 Status: Ordered Gengraf 25 mg oral capsule [...] 60 cap, 11 Refill(s), [facility] [place], 157.48, cm, 01/04/23 15:03:00 CDT, Height/Length Dosing, 81.65, kg, 01/04/23 15:03:00 CDT, Weight Dosing Start Date: 01/11/23 Status: Ordered ondansetron 4 mg oral tablet, disintegrating 4 mg = 1 tab, Oral, every 8 hr, PRN as needed for nausea/vomiting, X 3 days, # 10 tab, 0 Refill(s),08/12/23 1:06:00 PM CDT, Pharmacy: [id number], 157.48, cm, 08/08/23 17:40:00 CDT, Height, 81.65, kg, 08/08/23 17:43:00 CDT, Weight Dosing Start Date: 08/09/23 Stop Date: 08/12/23 Status: Ordered pantoprazole 40 mg oral delayed release tablet 1 tab, Oral, Daily, # 90 tab, 0 Refill(s), Pharmacy: [id number], 157.48, cm, 06/07/23 16:07:00 CDT, Height, 89.36, [...] tab, 0 Refill(s), Pharmacy: [facility], 157.48, cm, 06/07/23 16:07:00 CDT, Height, 89.36, [...] 1normal 2normal Results Laboratory List Name Date Respiratory Panel Mini ([facility]) 4 Urinalysis with Culture if Indicated 07/19 05/13 .Urine Volume 08/09/23 Urinalysis Microscopic 08/09/23 CBC w/ Diff 08/09/23 Comprehensive Metabolic Panel (CMP) 08/08 .Manual Differential (RANDY) 08/09/23 .Morphology (RANDY) 08/09/23 Most recent to oldest [Reference Range]: 1 WBC [4.0-11.5 K/mcL] 9.3 K/mcL (08/09/23 12:02 PM) RBC [4.20-5.40 x10^6/mcL] 4.21 x10^6/mcL (08/09/23 12:02 PM) Segs Man [37-70 %] 86 % *HI* (08/09/23: PM) Lymph Man [19-50 %] 9 % *LOW* (08/09/23: PM) Brown Man [0-13 %] 4 % (08/09/23 12: PM) Eos Man [0-4 %] 1 % (08/09/23 12:02 PM) BUN [7-18 mg/dL] 30 mg/dL *HI* (08/09/23 12:02 PM) UA Color Yellow (08/09/23 12:04 PM) UA WBC [0-5] 0-5 (08/09/23 12:04 PM) Glucose Level [70-110 mg/dL] 128 mg/dL *HI* (08/09/23 12: PM) Potassium Level [3.5-5.1 mmol/L] 4.4 mmo l/L (08/09/23 12:02 PM) MCV [78.0-100.0 fL] 101.4 fL *HI* (08/09/23 12:02 PM) UA Urobilinogen [Normal mg/dL] Normal mg /dL (08/09/23 12:04 PM) RBC Morph Reviewed (08/09/23 12: PM) UA Bili [Negative mg/dL] Negative mg/dL (08/09/23 12:04 PM) UA Ketones [Negative mg/dL] Negative mg/ dL (08/09/23 12:04 PM) AST [15-37 unit/L] 99 unit/L *HI* (08/09/23 12:02 PM) ALT [12-78 unit/L] 79 unit/L *HI* (08/09/23 12:02 PM) MCHC [29.0-37.5 g/dL] 33.0 g/dL (08/09/23: PM) Sodium Level [136-145 mmol/L] 141 mmol/L (08/09/23: PM) UA RBC [0-3] None (08/09/23 PM) UA Leuk Est [Negative Guille/mcL] Negative Guille/mcL (08/09/23 PM) UA Nitrite [Negative] Negative (08/09/23 PM) UA Glucose [Normal mg/dL] Normal mg/dL (08/09/23 PM) Hct [36.0-48.0 %] 42.7 % (08/09/23 PM) UA Bacteria [None Seen] Occasional *ABN* (08/09/23) Calcium Level [8.5-10.1 mg/dL] 8.8 mg/dL (08/09/23 PM) Albumin Level [3.4-5.0 g/dL] 3.4 g/dL (08/09/23 PM) Protein Total [6.4-8.2 g/dL] 7.0 g/dL (08/09/23 PM) UA Protein [Negative mg/dL] Negative mg/ dL (08/09/23 PM) MCH [27.0-34.0 pg] 33.5 pg (08/09/23: PM) Bilirubin Total [0.0-1.0 mg/dL] 0.8 mg/d L (08/09/23 PM) Hgb [12.0-16.0 g/dL] 14.1 g/dL (08/09/23: PM) Alk Phos [46-130 unit/L] 295 unit/L *HI* (08/09/23 PM) UA Blood [Negative Rocael/mcL] Negative Rocael /mcL (08/09/23 PM) MPV [6.0-10.0 fL] 10.9 fL *HI* (08/09/23: PM) UA Spec Grav 1.005 (08/09/23 PM) Platelets [150-450 K/mcL] 117 K/mcL *LOW* (08/09/23 12:02 PM) CO2 [21-32 mmol/L] 22 mmol/L (08/09/23:02 PM) UA Squam Epithelial [None Seen] Moderate *ABN* (08/09/23:04 PM) Macrocyte 1+ (08/09/23: PM) UA pH [5.0-9.0] 6.5 (08/09/23: PM) eGFR Non-AA 37 *NA* (08/09/23: PM) eGFR AA 44 *NA* (08/09/23: PM) UA Appear [Clear] Clear (08/09/23: PM) Chloride Level [97-107 mmol/L] 110 mmol/ L *HI* (08/09/23 PM) RDW-CV [11.5-15.0 %] 12.5 % (08/09/23: PM) Slide Review Man Diff Perf (08/09/23: PM) UA Culture Ind?. Not Indicated (08/09/23 12:04 PM) Urine Srce Clean Catch (08/09/23: PM) Urine Volume 12 mL (08/09/23: PM) Creatinine Level [0.60-1.30 mg/dL] 1.65 mg/dL 1 *HI* (08/09/23:02 PM) Anion Gap [5-15 mmol/L] 13 mmol/L (08/09/23:02 PM) SARS-CoV-2 ([facility]) [Negative] Negativ e (08/09/23 12:04 PM) Influenza B virus ([facility]) [Negative] Negative (08/09/23 12:04 PM) Influenza A virus ([facility]) [Negative] Negative (08/09/23 12:04 PM) Respiratory syncytial virus ([facility]) [ Negative] Negative (08/09/23 12:04 PM) Human rhinovirus ([facility]) [Negative] N egative (08/09/23 12:04 PM) 1Interpretive Data: Association of GFR and [...] Range]: 1 Temperature Oral [35.8-37.3 Deg C] 36.9 Deg C (08/09/23 11:00 AM) Peripheral Pulse Rate [60-100 bpm] 78 bp m (08/09/23 11:00 AM) Respiratory Rate [12-24 br/min] 16 br/mi n (08/09/23 11:00 AM) Blood Pressure [90-140/60-90 mmHg] 160/9 4mmHg *HI* (08/09/23 11:00 AM) Mean Arterial Pressure, Cuff [65-140 mmH g] 116 mmHg (08/09/23 11:00 AM) Weight 81.65 kg (08/09/23 11:00 AM) Weight Dosing 81.650 kg (08/09/23 11:00 AM) Height 157.48 cm (08/09/23 11:00 AM) Body Mass Index 32.92 kg/m2 (08/09/23 11:00 AM) Social History Social History Type Response Tobacco Current everyday tob acco user Tobacco Use:. 1 Sex 1Pt states that she smokes half a pack a day. Hospital Discharge Instructions Patient Education 08/09/2023 13:05:55 Viral Illness, Adult Viral Illness, Adult Viruses are tiny germs that can get into a person's body and cause illness. There are many different types of viruses, and they cause many types of illness. Viral illnesses can range from mild to severe. They can affect various parts of the body. Short-term conditions that are caused by a virus include colds and the flu (influenza). Long-term conditions that are caused by a virus include herpes, shingles, and HIV (human immunodeficiency virus) infection. A few viruses have been linked to certain cancers. What are the causes? Many types of viruses can cause illness. Viruses invade cells in your body, multiply, and cause theinfected cells to work abnormally or . When these cells , they release more of the virus. When this happens, you develop symptoms of the illness, and the virus continues to spread to other cells. If the virus takes over the function of the cell, it can cause the cell to divide and grow out ofcontrol. This happens when a virus causes cancer. Different viruses get into the body in different ways. You can get a virus by: ??? Swallowing food or water that has come in contact with the virus (is contaminated). ??? Breathing in droplets that have been coughed or sneezed into the air by an infected person. ??? Touching a surface that has been contaminated with the virus and then touching your eyes, nose,or mouth. ??? Being bitten by an insect or animal that carries the virus. ??? Having sexual contact with a person who is infected with the virus. ??? Being exposed to blood or fluids that contain the virus, either through an open cut or during atransfusion. If a virus enters your body, your body's defense system (immune system) will try to fight the virus. You may be at higher risk for a viral illness if your immune system is weak. What are the signs or symptoms? You may have these symptoms, depending on the type of virus and the location of the cells that it invades: ??? Cold and flu viruses: ??? Fever. ??? Headache. ??? Sore throat. ??? Muscle aches. ??? Stuffy nose (nasal congestion). ??? Cough. ??? Digestive system (gastrointestinal) viruses: ??? Fever. ??? Pain in the abdomen. ??? Nausea. ??? Diarrhea. ??? Liver viruses (hepatitis): ??? Loss of appetite. ??? Tiredness. ??? Skin or the white parts of your eyes turning yellow (jaundice). ??? Brain and spinal cord viruses: ??? Fever. ??? Headache. ??? Stiff neck. ??? Nausea and vomiting. ??? Confusion or sleepiness. ??? Skin viruses: ??? Warts. ??? Itching. ??? Rash. ??? Sexually transmitted viruses: ??? Discharge. ??? Swelling. ??? Redness. ??? Rash. How is this diagnosed? This condition may be diagnosed based on one or more of the following: ??? Symptoms. ??? Medical history. ??? Physical exam. ??? Blood test, sample of mucus from your lungs (sputum sample), stool sample, or a swab of body fluids or a skin sore (lesion). How is this treated? Viruses can be hard to treat because they live within cells. Antibiotic medicines do not treat viruses because these medicines do not get inside cells. Treatment for a viral illness may include: ??? Resting and drinking plenty of fluids. ??? Medicines to relieve symptoms. These can include [id number] medicine for pain and fever, medicines for cough or congestion, and medicines to relieve diarrhea. ??? Antiviral medicines. These medicines are available only for certain types of viruses. Some viral illnesses can be prevented with vaccinations. A common example is the flu shot. Follow these instructions at home: Medicines ??? Take [id number] and prescription medicines only as told by your health care provider. ??? If you were prescribed an antiviral medicine, take it as told by your health care provider. Do not stop taking the antiviral even if you start to feel better. ??? Be aware of when antibiotics are needed and when they are not needed. Antibiotics do not treat viruses. You may get an antibiotic if your health care provider thinks that you may have, or are at risk for, a bacterial infection and you have a viral infection. ??? Do not ask for an antibiotic prescription if you have been diagnosed with a viral illness. Antibiotics will not make your illness go away faster. ??? Frequently taking antibiotics when they are not needed can lead to antibiotic resistance. When this develops, the medicine no longer works against the bacteria that it normally fights. General instructions ??? Drink enough fluids to keep your urine pale yellow. ??? Rest as much as possible. ??? Return to your normal activities as told by your health care provider. Ask your health care provider what activities are safe for you. ??? Keep all follow-up visits as told by your health care provider. This is important. How is this prevented? To reduce your risk of viral illness: ??? Wash your hands often with soap and water for at least 20 seconds. If soap and water are not available, use hand institutional custodian. ??? Avoid touching your nose, eyes, and mouth, especially if you have not washed your hands recently. ??? If anyone in your household has a viral infection, clean all household surfaces that may have been in contact with the virus. Use soap and hot water. You may also use bleach that you have added water to (diluted). ??? Stay away from people who are sick with symptoms of a viral infection. ??? Do not share items such as toothbrushes and water bottles with other people. ??? Keep your vaccinations up to date. This includes getting a yearly flu shot. ??? Eat a healthy diet and get plenty of rest. Contact a health care provider if: ??? You have symptoms of a viral illness that do not go away. ??? Your symptoms come back after going away. ??? Your symptoms get worse. Get help right away if you have: ??? Trouble breathing. ??? A severe headache or a stiff neck. ??? Severe vomiting or pain in your abdomen. These symptoms may represent a serious problem that is an emergency. Do not wait to see if the symptoms will go away. Get medical help right away. Call your local emergency services (911 in the [place] Do not drive yourself to the hospital. Summary ??? Viruses are types of germs that can get into a person's body and cause illness. Viral illnessescan range from mild to severe. They can affect various parts of the body. ??? Viruses can be hard to treat. There are medicines to relieve symptoms, and there are some antiviral medicines. ??? If you were prescribed an antiviral medicine, take it as told by your health care provider. Do not stop taking the antiviral even if you start to feel better. ??? Contact a health care provider if you have symptoms of a viral illness that do not go away. This information is not intended to replace advice given to you by your health care provider. Make sure you discuss any questions you have with your health care provider. Document Revised: 07/20/2020 Document Reviewed: 01/14/2020 [employer] Patient Education ?? 2022 [employer]. Follow Up Care 08/09/2023 10:54:30 With:Follow up with primary care provider Address:Unknown When:1 to 2 days Physician Emergency department Note * Andrew Francis DO: PERFORM, MODIFY Event Display: ED Note Physician Authored Date: [id number] MISHA JACKSON :1980 Age:42 years Sex:Female Visit Date:08/09/2023 Primary Care Physician: Hermes Ramirez MD Basic Information Time Seen: Andrew Francis DO / 08/09/2023 10:57 History Of Present Illness: Of chronic low back pain states she had an MRI??on the second which showed spinal stenosis??she is going through physical therapy before she can go to pain management??she has a history of??liver transplant??and kidney transplant in the past??have any nonsteroidal anti-inflammatories??patient also has a history of narcotic abuse in her family physicians??suggest that he she does not get narcotics??plan of??generalized weakness and bodyaches??low-grade temp occasional chills Review of Systems: Constitutional:?Positive for??fevers,?Positive for??chills,?No??sweats Eye:?No??recent visual problems ENT:?No??ear pain,?No??nasal congestion,?No??sore throat Respiratory:?No??shortness of breath,?No??cough Cardiovascular:?No??Chest pain,?No??palpitations,?No??syncope Gastrointestinal:?Nonausea,?No??vomiting,?No??diarrhea Genitourinary:?No??hematuria Clemente/Lymph:?No??bruising tendency,?No??swollen lymph glands Endocrine:?No??excessive thirst,??No??excessive hunger Musculoskeletal:??Positive for??back pain,??No??neck pain,??No??joint pain,??Positive for??muscle pain,??No??decreased range of motion Integumentary:?No??rash,?No??pruritus,?No??abrasions Neurologic: Alert & oriented X 4 Psychiatric:?No??anxiety,?No??depression Physical Exam General: Alert and oriented, well nourished, no acute distress. Eye: PERRL, EOMI, normal conjunctiva. HENT: Normocephalic, clear tympanic membranes, normal hearing, moist oral mucosa, no scleral icterus, no sinus tenderness. Neck: Supple, non-tender, no carotid bruits, no JVD, no lymphadenopathy. Lungs: Clear to auscultation and percussion, non-labored respiration. Heart: Normal rate, regular rhythm, no murmur, gallop or edema. Abdomen: Soft, non-tender, non-distended, normal bowel sounds, no masses. Musculoskeletal: Normal range of motion and strength, neurolyse tenderness of most musculature??in the back??palpation Skin: Skin is warm, dry and appropriate for ethnicity, no rashes or lesions. Neurologic: Awake, alert and oriented X4, CN II-XII intact. Psychiatric: Cooperative, appropriate mood and affect. Medical Decision Making: patient refused IV tylenol Procedure No Qualifying Data Assessment/Plan Mild nausea??R11.0 Systemic viral illness??B34.9 Orders: acetaminophen, 1,000 mg = 100 mL, IV Piggyback, Soln-IV, every 8 hr, PRN pain, moderate, Administerover: 15 minutes, First Dose: 08/09/23 12:01:00 CDT, Routine ondansetron 4 mg oral tablet, disintegrating, 4 mg = 1 tab, Oral, every 8 hr, PRN as needed for nausea/vomiting, X 3 days, # 10 tab, 0 Refill(s), 08/12/23 13:06:00 CDT, Pharmacy: [id number], 157.48, cm, 08/08/23 17:40:00 CDT, Height, 81.65, kg, 08/08/23 17:43:00 CDT, Weight Dosing Saline Lock Insert, 08/09/23 12:01:00 CDT, Once, Stop date 08/09/23 12:01:00 CDT Patient Discharge Condition good Discharge Disposition home Patient Education Viral Illness, Adult Follow Up With When Contact Information Follow up with primary care provider Within 1 to 2 days Additional Instructions: Medication Reconciliation New Prescription ondansetron (ondansetron 4 mg oral tablet, disintegrating)1 tab Oral (given by mouth) every 8 hoursas needed as needed for nausea/vomiting for 3 Days. Refills: 0. ?? Unchanged amLODIPine (amLODIPine 5 mg oral tablet)1 tab Oral (given by mouth) every day. Refills: 11. ?? aspirin (aspirin 81 mg oral delayed release tablet)1 tab Oral (given by mouth) every day. ?? cycloSPORINE (Gengraf 25 mg oral capsule) ?? famotidine (Pepcid 20 mg oral tablet)1 [...] 2 times a day. Refills: 11. ?? pantoprazole (pantoprazole 40 mg oral delayed release tablet)1 tab Oral (given by mouth) every day.Refills: 0. ?? predniSONE (predniSONE 5 mg oral delayed release tablet)1 tab Oral (given by mouth) every day. ?? sucralfate (sucralfate 1 g oral tablet)1 tab Oral (given by mouth) 4 times a day. Refills: 0. ?? venlafaxine (venlafaxine 37.5 mg oral capsule, extended release)1 Capsules Oral (given by mouth) every day. 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, multiple sites PUD (peptic ulcer disease) Right shoulder pain Right-sided chest wall pain [...] detection of COVID-19 virus Liver transplant disorder Migraine headache Migraine headache Migraine headache Nausea Otalgia of right ear Otitis externa of right ear Rash Recurrent streptococcal tonsillitis Right otitis externa Skin change Sore throat Sprain of knee Upper respiratory infection Urinary tract infection in female UTI (urinary tract infection) Viral upper respiratory infection Yellow eyes Procedure/Surgical History ???Screening Pap Smear; Obtaining, Preparing And Conveyance Of Cervical/Vaginal Smear To Laboratory(07/2022)???Examining eye (2021)???Bladder washout (12/14/2020)???Kidney transplant (05/13/2020)???Tx - Liver transplantation (05/08/2020)???Mammogram (2020)??? delivery???[facility] removal from [facility]???liver transplant Medication Administration Given Phenergan, 50 mg, Intramuscular Allergies NSAIDs Toradol??(Kidney failure as a complication of care) aspirin??(Medication interaction) azithromycin??(Unknown) codeine??(Unknown, Itching) gentamicin morphine??(redness, Itching) erythromycin??(Medication interaction) Social History Alcohol Never Electronic Cigarette/Vaping Electronic Cigarette Use: Never. Substance Use Never Tobacco Current everyday tobacco user Tobacco Use:.- Comments: Pt states that she smokes half a pack a day. Family History Cancer: Mother. Lab Results CBC and Differential?? LATEST RESULTS?? HISTORICAL RESULTS?? WBC?? 08/09/23 12:02?? 9.3?? 07/09/23?? 5.3?? RBC?? 08/09/23 12:02?? 4.21?? 07/09/23?? 4.31?? Hgb?? 08/09/23 12:02?? 14.1?? 07/09/23?? 14.6?? Hct?? 08/09/23 12:02?? 42.7?? 07/09/23?? 43.7?? MCV?? 08/09/23 12:02?? 101.4 ??High?? 07/09/23?? 101.4 ??High?? MCH?? 08/09/23 12:02?? 33.5?? 07/09/23?? 33.9?? MCHC?? 08/09/23 12:02?? 33.0?? 07/09/23?? 33.4?? RDW-CV?? 08/09/23 12:02?? 12.5?? 07/09/23?? 12.5?? Platelets?? 08/09/23 12:02?? 117 ??Low?? 07/09/23?? 132 ??Low?? MPV?? 08/09/23 12:02?? 10.9 ??High?? 07/09/23?? 10.9 ??High?? Segs Man?? 08/09/23 12:02?? 86 ??High? Lymph Man?? 08/09/23 12:02?? 9 ??Low? Brown Man?? 08/09/23 12:02?? 4? Eos Man?? 08/09/23 12:02?? 1? RBC Morph?? 08/09/23 12:02?? Reviewed?? 05/22/23?? Reviewed?? Macrocyte?? 08/09/23 12:02?? 1+?? 05/22/23?? 1+?? Slide Review?? 08/09/23 12:02?? Man Diff Perf?? 07/09/23?? Not Indicated? Routine Chemistry?? LATEST RESULTS?? HISTORICAL RESULTS?? Sodium Level?? 08/09/23 12:02?? 141?? 07/09/23?? 146 ??High?? Potassium Level?? 08/09/23 12:02?? 4.4?? 07/09/23?? 3.4 ??Low?? Chloride Level?? 08/09/23 12:02?? 110 ??High?? 07/09/23?? 110 ??High?? CO2?? 08/09/23 12:02?? 22?? 07/09/23?? 19 ??Low?? Alk Phos?? 08/09/23 12:02?? 295 ??High?? 07/09/23?? 326 ??High?? AST?? 08/09/23 12:02?? 99 ??High?? 07/09/23?? 24?? ALT?? 08/09/23 12:02?? 79 ??High?? 07/09/23?? 37?? BUN?? 08/09/23 12:02?? 30 ??High?? 07/09/23?? 21 ??High?? Glucose Level?? 08/09/23 12:02?? 128 ??High?? 07/09/23?? 83?? Creatinine Level?? 08/09/23 12:02?? 1.65 ??High?? 07/09/23?? 1.57 ??High?? eGFR AA?? 08/09/23 12:02?? 44?? 07/09/23?? 47?? eGFR Non-AA?? 08/09/23 12:02?? 37?? 07/09/23?? 39?? Calcium Level?? 08/09/23 12:02?? 8.8?? 07/09/23?? 8.8?? Protein Total?? 08/09/23 12:02?? 7.0?? 07/09/23?? 7.3?? Albumin Level?? 08/09/23 12:02?? 3.4?? 07/09/23?? 3.3 ??Low?? Bilirubin Total?? 08/09/23 12:02?? 0.8?? 07/09/23?? 0.5?? Anion Gap?? 08/09/23 12:02?? 13?? 07/09/23?? 20 ??High? UA Macroscopic?? LATEST RESULTS?? HISTORICAL RESULTS?? Urine Srce?? 08/09/23 12:04?? Clean Catch?? 06/07/23?? Urine?? Urine Volume?? 08/09/23 12:04?? 12?? 06/07/23?? 12?? UA Color?? 05/22/24 12:04?? Yellow?? 06/07/23?? Yellow?? UA Appear?? 08/09/23 12:04?? Clear?? 06/07/23?? Hazy?? UA Glucose?? 08/09/23 12:04?? Normal?? 06/07/23?? Normal?? UA Bili?? 08/09/23 12:04?? Negative?? 06/07/23?? Negative?? UA Ketones?? 08/09/23 12:04?? Negative?? 06/07/23?? Negative?? UA Spec Grav?? 08/09/23 12:04?? 1.005?? 06/07/23?? 1.020?? UA Blood?? 08/09/23 12:04?? Negative?? 06/07/23?? Negative?? UA pH?? 08/09/23 12:04?? 6.5?? 06/07/23?? 5.0?? UA Protein?? 08/09/23 12:04?? Negative?? 06/07/23?? Negative?? UA Urobilinogen?? 08/09/23 12:04?? Normal?? 06/07/23?? Normal?? UA Nitrite?? 08/09/23 12:04?? Negative?? 06/07/23?? Negative?? UA Leuk Est?? 08/09/23 12:04?? Negative?? 06/07/23?? Negative?? UA Culture Ind?.?? 08/09/23 12:04?? Not Indicated?? 06/07/23?? Not Indicated? UA Microscopic?? LATEST RESULTS?? HISTORICAL RESULTS?? UA WBC?? 08/09/23 12:04?? 0-5?? 06/07/23?? 0-5?? UA RBC?? 08/09/23 12:04?? None?? 06/07/23?? 0-3?? UA Squam Epithelial?? 08/09/23 12:04?? Moderate Abnormal?? 06/07/23?? Moderate Abnormal?? UA Bacteria?? 08/09/23 12:04?? Occasional Abnormal?? 06/07/23?? Occasional Abnormal? Infectious Disease?? LATEST RESULTS?? SARS-CoV-2 (SpotFire)?? 08/09/23 12:04?? Negative?? Human rhinovirus (SpotFire)?? 08/09/23 12:04?? Negative?? Influenza A virus (SpotFire)?? 08/09/23 12:04?? Negative?? Influenza B virus (SpotFire)?? 08/09/23 12:04?? Negative?? Respiratory syncytial virus (SpotFire)?? 08/09/23 12:04?? Negative? Electronically Signed on 08/09/2023 13:09 CDT Andrew Francis DO Patient Care team information Care Team Personnel Name: Jessee Jones THRESHING DEPARTMENT SUPERVISOR Position: Physician Member Role: Nurse Practitioner Address: Address: [address] [place] [address], [address] [place] [address]- Name: Latoya Marquez THRESHING DEPARTMENT SUPERVISOR Position: Physician Member Role: Nurse Practitioner Address: Address: [address] [place] [address]- Name: Leonila Gonzalez THRESHING DEPARTMENT SUPERVISOR Position: Physician Member Role: Nurse Practitioner Address: Address: [address] [place] [address]- Name: Beth Brandt THRESHING DEPARTMENT SUPERVISOR Position: Physician Member Role: Nurse Practitioner Address: Address: [address] [place] [address] Name: Hermes Ramirez MD Position: Physician Member Role: Informed Provider Address: Address: [address] [place] [address], [address] [place] [address]- Name: Pillo Moe THRESHING DEPARTMENT SUPERVISOR Position: Physician Member Role: Nurse Practitioner Address: Address: [address] [place] [address], [address] [facility] Care Team Related Persons Name: STACIA JOENS Address: Home [address] [id number] Name: NAIF CHOI Name: MADY CHEN
--- OUTSIDE RECORDS SUMMARY | 2024-03-20 11:34 | XMS_ITS | Continuity of Care Document ---
Author Organization [facility] Address [address] [place] [address]- Care Team Providers Care Diamond Sander Name Role Phone Hermes Ramirez Primary Care Physician Encounter RANDY MCGRAW [id number] Date(s): 09/15/23 - 09/15/23 [facility] [place] [address] [place] [address]- Discharge Disposition: Home Allergies, Adverse Reactions, Alerts Substance Reaction Severity [...] Daily, # 30 tab, 11 Refill(s), Pharmacy: [facility] [place], [place], 157.48, cm, 01/04/23 15:03:00 CDT, Height/Length Dosing, 81.65, kg, 01/04/23 15:03:00 CDT, Weight Dosing Start Date: 01/11/23 Status: Ordered aspirin 81 mg oral delayed release tablet 81 mg = 1 tab, Oral, Daily, # 30 tab, 0 Refill(s) Start Date: 04/05/21 Status: Ordered gabapentin 300 mg oral capsule 600 mg = 2 cap, Oral, BID, # 120 cap, 2 Refill(s), [id number] [place], 157.48, cm, 07/23/23 17:59:00 CDT, Height, 88.45, [...] BID, # 60 cap, 11 Refill(s), Pharmacy: [place], [place], 157.48, cm, 01/04/23 15:03:00 CDT, Height/Length Dosing, 81.65, kg, 01/04/23 15:03:00 CDT, Weight Dosing Start Date: 01/11/23 Status: Ordered Nicotrol Inhaler 10 mg inhalation device See Instructions, 6-16 cartriges/day, # 1 EA, 2 Refill(s), Pharmacy: [facility], 157.48, cm, 08/29/23 14:22:00 CDT, Height, 88, kg, 08/29/23 14:27:00 CDT, Weight Dosing Start Date: 08/29/23 Status: Ordered pantoprazole 40 mg oral delayed release tablet 1 tab, Oral, Daily, # 90 tab, 0 Refill(s), Pharmacy: [facility], 157.48, cm, [...] QID, # 360 tab, 0 Refill(s), Pharmacy: [id number], 157.48, cm, 08/29/23 14:22:00 CDT, Height, 88, kg, 08/29/23 14:27:00 CDT, Weight Dosing Start Date: 09/05/23 Status: Ordered venlafaxine 37.5 mg oral capsule, extended release 37.5 mg = 1 cap, Oral, Daily, # 90 cap, 0 Refill(s), Pharmacy: [id number]- [place], 157.48, cm, 08/29/23 14:22:00 CDT, Height, 88, kg, 08/29/23 14:27:00 CDT, Weight Dosing Start Date: 08/29/23 Status: Ordered Problem List Condition Confirmation Course [...] information Care Team Personnel Name: Jessee Jones HIGH SCHOOL MATH TEACHER Position: Physician Member Role: Nurse Practitioner Address: Address: [address] [place] [address], [address] Name: Latoya Marquez HIGH SCHOOL MATH TEACHER Position: Physician Member Role: Nurse Practitioner Address: Address: [address] [place] [address] Name: Leonila Gonzalez HIGH SCHOOL MATH TEACHER Position: Physician Member Role: Nurse Practitioner Address: Address: [address] [place] [address] Name: Beth Brandt HIGH SCHOOL MATH TEACHER Position: Physician Member Role: Nurse Practitioner Address: Address: [address] [place] [address] Name: Hermes Ramirez MD Position: Physician Member Role: Informed Provider Address: Address: [address] [place] [address], [address] Name: Pillo Moe HIGH SCHOOL MATH TEACHER Position: Physician Member Role: Nurse Practitioner Address: Address: [address] [place] [address], [address] [facility] Care Team Related Persons Name: STACIA JONES Address: Home [address] [id number] Name: ROBYN JAMA Name: NAIF CHOI Name: MADY CHEN Name: MADY CHEN
--- OUTSIDE RECORDS SUMMARY | 2024-03-20 11:34 | XMS_ITS | Continuity of Care Document ---
Author Organization [facility] [address] [place] [address]- Care Team Providers Care Procurement Buyer Name Role Phone Hermes Ramirez Primary Care Physician Encounter MYLO MARILUZ [id number] Date(s): 06/15/22 - 06/15/22 [facility] [place] [address] [place] [address]- Encounter Diagnosis Sore throat(Discharge Diagnosis) - 06/15/22 Viral URI(Discharge Diagnosis) - 06/15/22 Discharge Disposition: Home or Self Care Attending Physician: Beth Brandt RESTRICTIVE PREPARATION OPERATOR Allergies, Adverse Reactions, Alerts Substance Reaction Severity Status codeine Unknown Itching Severe Active gentamicin Moderate Active erythromycin Medication interaction Activ e azithromycin Unknown Severe Active aspirin Medication interaction Severe Activ e Toradol Kidney failure as a complication of care Severe Active NSAIDs Severe Active Assessment and Plan Future Scheduled Tests Laboratory* Giardia lamblia Ag, EIA 04/07/22 * Cryptosporidium EIA LC 04/07/22 * Stool Culture 04/07/22 * Clostridium difficile Amp 04/07/22 * Ova + Parasite Exam 04/07/22 Functional Status 06/15/22 Other exposure to Infectious Disease Non e [...] wheezing, # 6.7 g, 0 Refill(s), Pharmacy: [place], [place], 73, cm, 09/13/21 23:53:00 CDT, Height/Length [...] needed, # 12 cap, 0 Refill(s), Pharmacy: [place], [place], 157, cm, 11/04/21 20:02:00 CDT, Height/Length [...] BID, # 180 tab, 3 Refill(s), Pharmacy: [facility], 157.48, cm, 02/07/22 18:45:00CST, Height/Length Dosing, 72.57, kg, 02/07/22 18:45:00 MUSEUM EXHIBIT DESIGNER, Weight Dosing Start Date: 02/13/22 Status: Ordered morphine 2 mg/mL preservative-free injectable solution 2 mg = 1 mL, IM, Once, 0 Refill(s) Start Date: 05/05/22 Status: Ordered oseltamivir 30 mg oral capsule 30 mg = 1 cap, Oral, BID, # 10 cap, 0 Refill(s), Pharmacy: [place], [place], 157.[address], cm, 03/16/22 18:01:00 MUSEUM EXHIBIT DESIGNER, Height/Length Dosing, 77.11, kg, 03/16/22 18:01:00 MUSEUM EXHIBIT DESIGNER, Weight Dosing Start Date: 03/16/22 Status: Ordered Pepcid 20 mg oral tablet 20 mg = 1 tab, Oral, BID, 0 Refill(s) Start Date: 09/29/20 Status: Ordered Phenergan 25 mg oral tablet 25 mg = 1 tab, Oral, every 6 hr, PRN as needed for nausea/vomiting, # 20 tab, 0 Refill(s), Pharmacy: [place], [place], [address], cm, 09/29/21 23:03:00 CDT, Height/Length [...] Complete d Results Laboratory List Name Date SARS-CoV-2 (Covid-19) AG ([facility]) POCT Strep A ([facility]) POCT 06/15/22 Influenza A/B ([facility]) POCT 06/15/22 Most recent to oldest [Reference Range]: 1 SARS-CoV or CoV-2 (COVID-19) Ag ([facility]) Negative *NA* (06/15/22 10:51 AM) Employed in healthcare? No *NA* (06/15/22 10:51 AM) Symptomatic as defined by CDC? Yes *NA* (06/15/22 10:51 AM) Date of onset (Lab) 12-JUN-2022 *NA* (06/15/22 10:51 AM) Hospitalized due to COVID-19? No *NA* (06/15/22 10:51 AM) In ICU? No *NA* (06/15/22 10:51 AM) Group care resident? No *NA* (06/15/22 10:51 AM) status? Not *NA* (06/15/22 10:51 AM) Influenza A ([facility]) POCT Negative *NA* (06/15/22 10:50 AM) Influenza B ([facility]) POCT Negative *NA* (06/15/22 10:50 AM) Strep A ([facility]) POCT Negative *NA* (06/15/22 10:51 AM) Vital Signs Most recent to oldest [Reference Range]: 1 Temperature Oral [35.8-37.3 Deg C] 37 De g C (06/15/22 10:48 AM) Peripheral Pulse Rate [60-100 bpm] 71 bp m (06/15/22 10:48 AM) Blood Pressure [90-140/60-90 mmHg] 133/8 6mmHg (06/15/22 10:48 AM) Social History Social History Type Response Tobacco Current everyday tob acco user Tobacco Use:. Sex Urgent care center Note * Beth Brandt RESTRICTIVE PREPARATION OPERATOR: PERFORM Event Display: Urgent Care Office Clinic Note Authored Date: [id number] MISHA JACKSON :1980 Age:41 years Sex:Female Visit Date:06/15/2022 Primary Care Physician: Hermes Ramirez MD Chief Complaint Pt reports having green snot, stuffy nose, ears are full since Monday or Monday. History of Present Illness [facility] with complaint of stuffy nose and??ears fullness since Monday or Monday. Denies any fever, chills, body aches, or sore throat. Denies any OTC medication at this time. Review of Systems Constitutional:??No??fever,??No??chills,??No??sweats,??No??weakness Eye:??No??eye redness,??Noeye pain,??Noeye discharge,??Novisual change ENMT:??reports??ear pain,??No??sore throat,??reports??congestion,??No??hoarseness,??Nodrainage Respiratory:??No??shortness of breath,??No??cough,??No??orthopnea,??No??wheezing,??Nosputum production Cardiovascular:??No??chest pain,??No??palpitations,??No??edema Gastrointestinal:??No??nausea,??No??vomiting,??No??diarrhea,??No??abdominal pain Musculoskeletal:??No??back pain,??No??trauma Neurologic:??No??headache,??No??dizziness,??No??weakness Lymph:??No??swollen nodes Skin:??No??rash,??No??lesions Physical Exam Vitals & Measurements T:??37?C ??(Oral)?? HR:??71??(Peripheral)?? BP:??133/86?? SpO2:??100%?? General:??alert,??no acute distress. Skin:??warm,??dry, intact, ??no??rash, HENT:??No??trauma,??Normocephalic??, tympanic membranes??Normal, ear canal??Normal, nares??Clear, pharynx??Clear, bilateral tonsils??0, frontal sinus??Non-Tender, maxillary sinus??Non-Tender Neck:??trachea??midline,??no??adenopathy,??no??tenderness, Cardiovascular:??regular??rate and rhythm, S1 and S2, no murmur, rubs, clicks, thrills, or gallops,? Respiratory:??lungs??CTA, respirations??non-labored. Neurological:??oriented??x 4, LOC??appropriate for age, Psychiatric:??cooperative, affect??appropriate for age,??normal??judgement,?? Assessment/Plan 1.??Viral URI??J06.9 Strep screen negative. ??Throat culture pending.?? Symptoms appear to have viral etiology at this time. ??Rapid??COVID-19??negative.?Recommended OTC antihistamine, such as Claritin or Zyrtec. ??Use OTC Tylenol or ibuprofen for??pain. ??Push fluids, rest. ??Educated about signs and symptoms requiring medical attention. ??Follow-up with PCP in 3 to 4 days if no improvement or sooner with worsening symptoms.?Patient verbalizes understanding and agrees to plan. ?? Sore throat??J02.9 Ordered: Throat Culture, Throat, Routine collect, RT - Routine, 06/15/22 10:30:00 CDT, Once, Lab Collect, Collected, by NS, Micro Spec, 06/15/22 12:26:00 CDT, Sore throat, Print Label [email or web address], Not Required ?? Problem List/Past Medical History Ongoing Acne Anxiety [...] 1 cap, Oral, every 4 hr, PRN gabapentin 300 mg oral capsule LORazepam 0.5 mg oral tablet Metoprolol Tartrate 25 mg oral tablet, 1 tab, Oral, BID morphine 2 mg/mL preservative-free injectable solution, 2 mg= 1 mL, IM, Once oseltamivir 30 mg oral capsule, 30 mg= 1 cap, Oral, BID Pepcid 20 mg oral tablet, [...] 03/20/2017 Recorded tetanus/diphth/pertuss (Tdap) adult/adol 05/25/2012 Recorded Lab Results Test Name Test Result Date/Time SARS-CoV or CoV-2 (COVID-19) Ag ([facility]) Negative 06/15/2022 10:51 CDT Electronically Signed on 06/15/22 01:38 PM Beth Brandt RESTRICTIVE PREPARATION OPERATOR Patient Care team information Care Team Personnel Name: Jessee Jones NP Position: Physician Member Role: Nurse Practitioner Address: Address: [address] [place] [address], [address] [place] [address] Name: Latoya Marquez RESTRICTIVE PREPARATION OPERATOR Position: Physician Member Role: Nurse Practitioner Address: Address: [address] [place] [address]- Name: Leonila Gonzalez RESTRICTIVE PREPARATION OPERATOR Position: Physician Member Role: Nurse Practitioner Address: Address: [address] [place] [address]- Name: Beth Brandt RESTRICTIVE PREPARATION OPERATOR Position: Physician Member Role: Nurse Practitioner Address: Address: [address] [place] [address] [place] [address] Name: Hermes Ramirez MD Position: Physician Member Role: Informed Provider Address: Address: [address] [place] [address], [address] [place] [address]- Name: Pillo Moe RESTRICTIVE PREPARATION OPERATOR Position: Physician Member Role: Nurse Practitioner Address: Address: [address] [place] [address], [address] [facility] Care Team Related Persons Name: STACIA JONES Address: Home [address] [place], [place] [id number] Name: ROBYN JAMA Address: Home
--- OUTSIDE RECORDS SUMMARY | 2024-03-20 11:34 | XMS_ITS | Continuity of Care Document ---
Author Organization [facility] Address [address] [place] [address] Care Team Providers Care Service Advocate Contact Name Role Phone Hermes Ramirez Primary Care Physician Encounter ONOFRE MCGRAW [id number] Date(s): 06/05/20 - 06/05/20 [place] [address] [place] [address]- [place] Discharge Disposition: Home or Self Care Attending Physician: Palak Garnica MD Admitting Physician: Palak Garnica MD Allergies, Adverse Reactions, Alerts Substance Reaction Severity Status erythromycin Medication interaction Activ e aspirin Medication interaction Activ e Toradol Kidney failure as a complication of care Active Assessment and Plan Diagnostic Tests Pending * Tacrolimus (FK506), Blood LC 06/05/20 Future Scheduled Tests Laboratory* COVID-19 Testing Send Out - [place] 10/25/19 Immunizations Given and Recorded Vaccine Date Status Refusal Reason hepatitis B adult vaccine 11/10/17 Recorded hepatitis B adult vaccine 10/09/17 Recorded hepatitis A adult vaccine 10/09/17 Recorded tetanus/diphth/pertuss (Tdap) adult/adol 05/10/17 Recorded tetanus/diphth/pertuss (Tdap) adult/adol 03/20/17 Recorded tetanus/diphth/pertuss (Tdap) adult/adol 05/25/12 Recorded Medications Lasix 20 mg oral tablet 20 mg = 1 tab, Oral, Daily, # 5 tab, 0 Refill(s), [id number] Start Date: 04/14/20 Stop Date: 04/19/20 Status: Ordered metoprolol succinate 50 mg oral tablet, extended release 50 mg = 1 tab, Oral, Daily, # 30 tab, 0 Refill(s) Start Date: 12/30/19 Status: Ordered Prograf 2 mg =, Oral, every 12 hr, 0 Refill(s) Start Date: 12/18/18 Status: Ordered promethazine 25 mg oral tablet 25 mg =, Oral, every 6 hr, PRN nausea/vomiting, # 20 tab, 0 Refill(s), Pharmacy: [id number] Start Date: 04/28/19 Stop Date: 05/03/19 Status: Ordered sodium bicarbonate 650 mg oral tablet 1,300 mg = 2 tab, Oral, TID, # 60 tab, 0 Refill(s) Start Date: 12/18/18 Status: Ordered Problem List Condition Effective Dates Status Health Status Inform ant Anxiety(Confirmed) Active Chronic kidney disease, stag e IV (severe)(Confirmed) Active Chronic pain(Confirmed) Active Chronic pain(Confirmed) Active Congenital biliary atresia(Confirmed) Active Rash(Confirmed) Active Hx of migraine headaches(Confirmed) Active Heart murmur(Confirmed) Active Idiopathic thrombocytopenic purpura(Confirmed) Active Liver transplant disorder(Confirmed) Active Lumbar back pain(Confirmed) Active Migraine(Confirmed) Active Numbness and tingling of rig ht arm(Confirmed) Active Thrombocytopenia(Confirmed) Active Yellow eyes(Confirmed) Active Sprain of knee(Confirmed) Active Recurrent streptococcal tonsillitis(Confirmed) Active Edema(Confirmed) Active Procedures Procedure Date Related Diagnosis Body Site Status delivery Complet ed cyst removal from breast Completed Hernia Completed liver transplant Complete d Results Laboratory List Name Date .Morphology (ONOFRE) 06/05/20 Automated Diff 06/05/20 CBC w/ Diff 06/05/20 Comprehensive Metabolic Panel 06/05/20 GGT 06/05/20 Most recent to oldest [Reference Range]: 1 WBC [4.0-11.5 K/mcL] 4.4 K/mcL (06/05/20 8:21 AM) RBC [4.20-5.40 x10^6/mcL] 2.78 x10^6/mcL *LOW* (06/05/20 8:21 AM) Neutro Auto 64.3 % *NA* (06/05/20 8:21 AM) Lymph Auto 18.3 % *NA* (06/05/20 8:21 AM) Elk Auto 7.2 % *NA* (06/05/20 8:21 AM) Basophil Auto 0.7 % *NA* (06/05/20 8:21 AM) BUN [7-18 mg/dL] 32 mg/dL *HI* (06/05/20 8:21 AM) Glucose Level [70-110 mg/dL] 98 mg/dL (06/05/20 8:21 AM) Potassium Level [3.5-5.1 mmol/L] 4.2 mmo l/L (06/05/20 8:21 AM) Baso Absolute [0.0-0.1 x10^3/mcL] 0.0 x1 0^3/mcL (06/05/20 8:21 AM) MCV [78.0-100.0 fL] 105.0 fL *HI* (06/05/20 8:21 AM) RBC Morph Reviewed (06/05/20 8: AM) AST [15-37 unit/L] 27 unit/L (06/05/20 8:21 AM) ALT [12-78 unit/L] 52 unit/L (06/05/20 8:21 AM) MCHC [29.0-37.5 g/dL] 31.8 g/dL (06/05/20 8:21 AM) Sodium Level [136-145 mmol/L] 139 mmol/L (06/05/20 8:21 AM) Lymph Absolute [0.8-5.8 x10^3/mcL] 0.8 x 10^3/mcL (06/05/20 8:21 AM) Hct [36.0-48.0 %] 29.2 % *LOW* (06/05/20 8:21 AM) Calcium Level [8.5-10.1 mg/dL] 8.1 mg/dL *LOW* (06/05/20 8:21 AM) Elk Absolute [0.1-1.5 x10^3/mcL] 0.3 x1 0^3/mcL (06/05/20 8:21 AM) Albumin Level [3.4-5.0 g/dL] 2.5 g/dL *LOW* (06/05/20 8:21 AM) Protein Total [6.4-8.2 g/dL] 6.4 g/dL (06/05/20 8:21 AM) MCH [27.0-34.0 pg] 33.5 pg (06/05/20 8:21 AM) Neutro Absolute [1.5-8.1 x10^3/mcL] 2.9 x10^3/mcL (06/05/20 8:21 AM) Bilirubin Total [0.0-1.0 mg/dL] 1.4 mg/d L *HI* (06/05/20 8:21 AM) Hgb [12.0-16.0 g/dL] 9.3 g/dL *LOW* (06/05/20 8:21 AM) Alk Phos [46-130 unit/L] 502 unit/L *HI* (06/05/20 8:21 AM) MPV [6.0-10.0 fL] 10.8 fL *HI* (06/05/20 8:21 AM) Platelets [150-450 K/mcL] 124 K/mcL *LOW* (06/05/20 8:21 AM) CO2 [21-32 mmol/L] 26 mmol/L (06/05/20 8:21 AM) Eos Absolute [0.0-0.5 x10^3/mcL] 0.4 x10 ^3/mcL (06/05/20 8:21 AM) Aniso 2+ (06/05/20 8:21 AM) GGT [5-55 unit/L] 227 unit/L *HI* (06/05/20 8:21 AM) Macrocyte 1+ (06/05/20 8:21 AM) eGFR Non-AA 32 *NA* (06/05/20 8:21 AM) eGFR AA 38 *NA* (06/05/20 8:21 AM) Chloride Level [97-107 mmol/L] 104 mmol/ L (06/05/20 8:21 AM) RDW-CV [11.5-15.0 %] 18.6 % *HI* (06/05/20 8:21 AM) Imm Gran Absolute [0.0-0.1 x10^3/mcL] 0. 0 x10^3/mcL (06/05/20 8:21 AM) Imm Gran Auto 0.9 % *NA* (06/05/20 8:21 AM) NRBC Auto 0.0 % *NA* (06/05/20 8:21 AM) NRBC Absolute [0.0-0.0 x10^3/mcL] 0.0 x1 0^3/mcL (06/05/20 8:21 AM) Creatinine Level [0.60-1.30 mg/dL] 1.89 mg/dL *HI* (06/05/20 8:21 AM) Anion Gap [5-15 mmol/L] 13 mmol/L (06/05/20 8:21 AM) Eos, Auto 8.6 % *NA* (06/05/20 8:21 AM) Social History Social History Type Response Smoking Status 4 or less cigarettes (less than 1/4 pack)/day in last 30 days entered on: 04/08/20 Sex
--- OUTSIDE RECORDS SUMMARY | 2024-03-20 11:34 | XMS_ITS | Continuity of Care Document ---
Author Organization [facility] Address [address] [place] [address] Care Team Providers Care Rubber Extrusion Machine Operator Name Role Phone Hermes Ramirez Primary Care Physician Encounter ONOFRE MCGRAW [id number] Date(s): 03/31/21 - 03/31/21 [place] [address] [place] [address] us Discharge Disposition: Home or Self Care Attending Physician: Hermes Ramirez MD Admitting Physician: Hermes Ramirez MD Allergies, Adverse Reactions, Alerts Substance Reaction Severity Status gentamicin Moderate Active erythromycin Medication interaction Activ e aspirin Medication interaction Activ e Toradol Kidney failure as a complication of care Active NSAIDs Severe Active Assessment and Plan Future Appointments Diagnostic Tests Pending * CCP Antibodies IgG/IgA LC 03/31/21 * Rheumatoid Arthritis Factor LC 03/31/21 * Insulin LC 03/31/21 * Vitamin D, 25-Hydroxy LC 03/31/21 Immunizations Given and Recorded Vaccine Date Status Refusal Reason hepatitis B adult vaccine 11/10/17 Recorded hepatitis B adult vaccine 10/09/17 Recorded hepatitis A adult vaccine 10/09/17 Recorded tetanus/diphth/pertuss (Tdap) adult/adol 05/10/17 Recorded tetanus/diphth/pertuss (Tdap) adult/adol 03/20/17 Recorded tetanus/diphth/pertuss (Tdap) adult/adol 05/25/12 Recorded Medications amLODIPine 10 mg oral tablet TAKE ONE TABLET DAILY Start Date: 12/18/20 Status: Ordered Benadryl 50 mg = 1 mL, IM, Once, 0 Refill(s) Start Date: 03/26/21 Status: Ordered butalbital/acetaminophen/caffeine 50 mg-325 mg-40 mg [...] BID, # 180 tab, 3 Refill(s), Pharmacy: [place], [place], [address], cm, 10/22/20 21:26:00 CDT, Height/Length Dosing, 74, kg, 10/22/20 21:26:00 CDT, Weight Dosing Start Date: 12/18/20 Status: Ordered morphine 4 mg/mL preservative-free injectable solution 4 mg = 1 mL, IM, Once, 0 Refill(s) Start Date: 03/26/21 Status: Ordered Pepcid 20 mg oral tablet 20 mg = 1 tab, Oral, BID, 0 Refill(s) Start Date: 09/29/20 Status: Ordered Phenergan 25 mg = 1 mL, IM, Once, 0 Refill(s) Start Date: 03/26/21 Status: Ordered Retin-A 0.05% topical cream 1 sanjiv, Topical, every day at bedtime, # 45 g, 2 Refill(s), Pharmacy: [place], [place], [address], cm, 08/18/20 12:26:00 CDT, Height/Length [...] Complete d Results Laboratory List Name Date Hemoglobin A1c w/eAG 03/31/21 Lipid Panel 03/31/21 Uric Acid 03/31/21 Sedimentation Rate (ESR) 03/31/21 Most recent to oldest [Reference Range]: 1 Cholesterol Total [100-199 mg/dL] 172 mg /dL (03/31/21 8:02 AM) LDL [<=99 mg/dL] 106 mg/dL *HI* (03/31/21 8:02 AM) HDL [40-59 mg/dL] 49 mg/dL (03/31/21 8:02 AM) Triglycerides [20-149 mg/dL] 83 mg/dL (03/31/21 8:02 AM) Uric Acid [2.6-7.2 mg/dL] 6.0 mg/dL (03/31/21 8:02 AM) eAvg Glucose 85 mg/dL *NA* (03/31/21 8:02 AM) Hemoglobin A1c [3.8-5.6 %] 4.6 % (03/31/21 8:02 AM) VLDL [5-40 mg/dL] 17 mg/dL (03/31/21 8:02 AM) LDL/HDL Ratio [0.0-3.6 ratio] 2.2 ratio (03/31/21 8:02 AM) ESR, Westergren [0-20 mm/hr] 20 mm/hr (03/31/21 8:01 AM) Social History Social History Type Response Smoking Status 5-9 cigarettes (betw een 1/4 to 1/2 pack)/day in last 30 days entered on: 08/18/20 Sex
--- OUTSIDE RECORDS SUMMARY | 2024-03-20 11:34 | XMS_ITS | Continuity of Care Document ---
Author [facility] Address [address] [place] [address]- Care Team Providers Care Slitter Cut Off Operator Name Role Phone Hermes Ramirez Primary Care Physician Encounter RANDY MCGRAW [id number] Date(s): 01/18/24 - 01/18/24 [facility] [address] [place] [address]- Encounter Diagnosis Knee pain(Discharge Diagnosis) - 01/18/24 Shoulder pain(Discharge Diagnosis) - 01/18/24 Discharge Disposition: Home Allergies, Adverse Reactions, Alerts Substance Criticality Severity Reaction Reaction Severity Status codeine High criticality Severe Unknown Itching Active gentamicin High criticality Moderate Ac tive aspirin High criticality Severe Medication interaction Active NSAIDs High criticality Severe Act luis miguel erythromycin Medication interaction Active azithromycin High criticality Severe Unknown Active morphine 1 Low criticality Mild redness Itching Active Toradol High criticality Severe Kidney fail ure as a complication of care Active 1localized reaction at iv site Assessment [...] Daily, # 30 tab, 11 Refill(s), Pharmacy: [place], [place], 157.48, cm, 01/04/23 15:03:00 CDT, Height/Length Dosing, 81.65, kg, 01/04/23 15:03:00 CDT, Weight Dosing Start Date: 01/11/23 Status: Ordered amoxicillin 875 mg oral tablet 875 mg = 1 tab, Oral, BID, # 14 tab, 0 Refill(s), Pharmacy: [id number] [place], 157.48, cm, 01/01/24 14:49:00 CDT, Height, 87.09, kg, 01/01/24 14:53:00 CDT, Weight Dosing Start Date: 01/01/24 Stop Date: 01/08/24 Status: Ordered aspirin 81 mg oral delayed release tablet 81 mg = 1 tab, Oral, Daily, # 30 tab, 0 Refill(s) Start Date: 04/05/21 Status: Ordered Benadryl 50 mg = 1 mL, Intramuscular, Once, 0 Refill(s) Start Date: 01/14/24 Status: Ordered gabapentin 300 mg oral capsule 600 mg = 2 cap, Oral, BID, # 120 cap, 2 Refill(s), Pharmacy: [id number] [place], 157.48, cm, 07/23/23 17:59:00 CDT, Height, [...] 60 cap, 11 Refill(s), [facility]: [facility], 157.48, cm, 01/04/23 15:03:00 CDT, Height/Length Dosing, 81.65, kg, 01/04/23 15:03:00 CDT, Weight Dosing Start Date: 01/11/23 Status: Ordered morphine 2 mg/mL preservative-free injectable solution 2 mg = 1 mL, Intramuscular, Once, 0 Refill(s) Start Date: 01/14/24 Status: Ordered nicotine 21 mg/24 hr transdermal film, extended release 1 patches, Transdermal, Daily, # 14 patches, 1 Refill(s), Pharmacy: [id number], 157.48, cm, 01/01/24 14:49:00 CDT, Height, 87.09, kg, 01/01/24 14:53:00 CDT, Weight Dosing Start Date: 01/01/24 Status: Ordered Nicotrol Inhaler 10 mg inhalation device See Instructions, 6-16 cartriges/day, # 1 EA, 2 Refill(s), Pharmacy: [id number], 157.48, cm, 08/29/23 14:22:00 CDT, Height, 88, kg, 08/29/23 14:27:00 CDT, Weight Dosing Start Date: 08/29/23 Status: Ordered pantoprazole 40 mg oral delayed release tablet 1 tab, Oral, Daily, # 90 tab, 0 Refill(s), Pharmacy: [id number], 157.48, cm, 06/07/23 16:07:00 CDT, Height, 89.36, [...] QID, # 360 tab, 0 Refill(s), [id number], 157.48, cm, 08/29/23 14:22:00 CDT, Height, 88, kg, 08/29/23 14:27:00 CDT, Weight Dosing Start Date: 09/05/23 Status: Ordered venlafaxine 37.5 mg oral capsule, extended release 37.5 mg = 1 cap, Oral, Daily, # 90 cap, 0 Refill(s), [facility]: [id number] [place], 157.48, cm, 09/28/23 18:18:00 CDT, Height, 81.65, [...] information Care Team Personnel Name: Jessee Jones MENTAL HEALTH TECHNICIAN Position: Physician Member Role: Nurse Practitioner Address: [address] [facility], [address] [place] [address]- Name: Latoya Marquez MENTAL HEALTH TECHNICIAN Position: Physician Member Role: Nurse Practitioner Address: [address] [place] [address]- Name: Leonila Gonzalez MENTAL HEALTH TECHNICIAN Position: Physician Member Role: Nurse Practitioner Address: [address] [place] [address] Name: Beth Brandt MENTAL HEALTH TECHNICIAN Position: Physician Member Role: Nurse Practitioner Address: [address] [place] [address] Name: Hermes Ramirez MD Position: Physician Member Role: Informed Provider Address: [address] [facility], [address] [place] [address]- Name: Pillo Moe NP Position: Physician Member Role: Nurse Practitioner Address: [address] [facility], [address] [facility] Care Team Related Persons Name: STACIA JONES Name: ROBYN JAMA Name: NAIF CHOI Name: MADY CHEN Name: MADY CHEN Insurance Providers Guarantor name: MISHA JACKSON Health Plan Information #: 1 Payer: [place] [employer] Member Number: NA Policy Number: NA Health Plan Information #: 2 Payer: [employer] AP[employer]OVED Member Number: NA Policy Number: NA Health Plan Information #: 3 Payer: MISC Workers Comp Member Number: NA Policy Number: NA
--- OUTSIDE RECORDS SUMMARY | 2024-03-20 11:34 | XMS_ITS | Continuity of Care Document ---
Author Organization [facility] Address [address] [place] [address] Care Team Providers Care Mass Spectrometry Specialist Name Role Phone Hermes Ramirez Primary Care Physician Encounter ONOFRE MCGRAW [id number] Date(s): 10/13/21 - 10/13/[address] [address] Encounter Diagnosis Migraine headache(Discharge Diagnosis) - 10/13/21 Discharge Disposition: Home or Self Care Attending Physician: Jesus Khan MD Admitting Physician: Jesus Khan MD Allergies, Adverse Reactions, Alerts Substance Reaction Severity Status codeine Unknown Itching Severe Active gentamicin Moderate Active erythromycin Medication interaction Activ e azithromycin Unknown Severe Active aspirin Medication interaction Severe Activ e Toradol Kidney failure as a complication of care Moderate Active NSAIDs Severe Active Functional Status 10/13/21 Family Member Travel History No recent t [...] hr, # 20 tab, 0 Refill(s), Pharmacy: [facility] [place], [place], 73, cm, 09/13/21 23:53:00 CDT, Height/Length Dosing, 157, kg, 09/13/21 23:53:00 CDT, Weight Dosing Start Date: 09/14/21 Stop Date: 09/24/21 Status: Ordered !-Zofran ODT 4 mg oral tablet, disintegrating 4 mg = 1 tab, Oral, Once, 0 Refill(s) Start Date: 10/04/21 Status: Ordered albuterol 90 mcg/inh aerosol inhaler 1 puffs, Inhale, every 4 hr, PRN as needed for wheezing, # 6.7 g, 0 Refill(s), Pharmacy: [facility] [place], [place], 73, cm, 09/13/21 23:53:00 CDT, Height/Length Dosing, [...] mL, IM, Once, 0 Refill(s) Start Date: 10/04/21 Status: Ordered butalbital/acetaminophen/caffeine 50 mg-325 mg-40 mg oral tablet 1 tab, Oral, every 4 hr, 0 Refill(s) Start Date: 08/18/20 Status: Ordered cephalexin 500 mg oral capsule 500 mg = 1 cap, Oral, TID, # 21 cap, 0 Refill(s), Pharmacy: [facility] [place], [place], 157, cm, 09/27/21 22:29:00 CDT, Height/Length Dosing, 73, kg, 09/27/21 22:29:00 CDT, Weight Dosing Start Date: 09/27/21 Stop Date: 10/04/21 Status: Ordered codeine-guaifenesin 7.5 mg-225 mg/5 mL oral liquid 7.5 mL, Oral, every 6 hr, PRN as needed for cough, # 120 mL, 0 Refill(s), Pharmacy: [facility], 73, cm, 09/13/21 23:53:00 CDT, Height/Length Dosing, 157, kg, 09/13/21 23:53:00 CDT, Weight Dosing Start Date: 09/14/21 Status: Ordered Diflucan 150 mg oral tablet 150 mg = 1 tab, Oral, Once, # 1 tab, 0 Refill(s), Pharmacy: [facility] [place], 73, cm,09/13/21 23:53:00 CDT, Height/Length Dosing, 157, kg, 09/13/21 23:53:00 CDT, Weight Dosing Start Date: 09/24/21 Status: Ordered Dilaudid 0.5 mg = 0.5 mL, IM, every 4 hr, 0 Refill(s) Start Date: 10/04/21 Status: Ordered gabapentin 300 mg oral capsule [...] BID, # 180 tab, 3 Refill(s), Pharmacy: [place], [place], 157, cm, 10/22/20 21:26:00 CDT, Height/Length [...] nausea/vomiting, # 20 tab, 0 Refill(s), Pharmacy: [facility] [place], 157, cm, 09/29/21 23:03:00 CDT, Height/Length Dosing, [...] 0 Refill(s) Start Date: 04/05/21 Status: Ordered venlafaxine 37.5 mg oral capsule, extended release 37.5 mg = 1 cap, Oral, Daily, # 30 cap, 0 Refill(s) Start Date: 10/13/21 Status: Ordered Mental Status 10/13/21 Eye Opening Response Yanira Spontaneous ly Best Verbal Response Yanira Oriented Best Motor Response Yanira Obeys comman ds Bristow Coma Score 15 Problem List Condition Effective Dates Status Health [...] Range]: 1 Temperature Oral [35.8-37.3 Deg C] 36.8 Deg C (10/13/21 5:06 PM) Peripheral Pulse Rate [60-100 bpm] 92 bp m (10/13/21 5:06 PM) Respiratory Rate [12-24 br/min] 18 br/mi n (10/13/21 5:06 PM) Blood Pressure [90-140/60-90 mmHg] 129/7 7mmHg (10/13/21 5:06 PM) Weight 75.00 kg (10/13/21 5:06 PM) Weight Dosing 75.00 kg (10/13/21 5:34 PM) Height 157.000 cm (10/13/21 5:06 PM) Height/Length Dosing 157.000 cm (10/13/21 5:34 PM) Social History Social History Type Response Smoking Status 5-9 cigarettes (betw een 1/4 to 1/2 pack)/day in last 30 days entered on: 05/12/21 Sex Hospital Discharge Instructions Patient Education 10/13/2021 17:25:21 Migraine Headache, Xowa-es-Omqm Migraine Headache A migraine headache is a [...] these instructions at home: Medicines ??? Take hypd-kyy-mcdfwkb and prescription medicines only as told by your doctor. ??? Ask your doctor if the medicine prescribed to you: ??? Requires you to avoid driving or using heavy machinery. ??? Can cause trouble pooping (constipation). You may need to take these steps to prevent or treat trouble pooping: ??? Drink enough fluid to keep your pee (urine) pale yellow. ??? Take ezwm-csv-wyqpoxr or prescription medicines. ??? Eat foods that [...] Reviewed: 04/18/2019 Elsevier Patient Education ?? 2020 [employer] Follow Up Care 10/13/2021 17:06:28 With:Hermes Ramirez MD Address: [address] [place] [address], [address] [place] [address]- When:1 week Comments:Continue other home medications. ??Return to ED if symptoms worsen. Care Team Personnel Name: Hermes Ramirez MD Address: [address] [place] [address], [address] [place] [address]-
--- OUTSIDE RECORDS SUMMARY | 2024-03-20 11:34 | XMS_ITS | Continuity of Care Document ---
Author Organization [facility] Address [address] [place] [address] Care Team Providers Care Chipper Operator Name Role Phone Hermes Ramirez Primary Care Physician Encounter ONOFRE MCGRAW [id number] Date(s): 06/11/21 - 06/11/21 [facility] [address] [place] [address]- [place] Discharge Disposition: Home or Self Care Attending Physician: Akil Ramirez MD Allergies, Adverse Reactions, Alerts Substance Reaction Severity Status gentamicin Moderate Active erythromycin Medication interaction Activ e aspirin Medication interaction Activ e Toradol Kidney failure as a complication of care Active NSAIDs Severe Active Assessment and Plan Future Appointments Future Scheduled Tests Radiology* MRI Spine Cervical w/o Contrast 06/11/21 Functional Status 06/11/21 Other exposure to Infectious Disease Non e [...] BID, # 180 tab, 3 Refill(s), Pharmacy: [place], [place], 157, cm, 10/22/20 21:26:00 CDT, Height/Length [...] Range]: 1 Peripheral Pulse Rate [60-100 bpm] 87 bp m (06/11/21 2:04 PM) Blood Pressure [90-140/60-90 mmHg] 130/8 8mmHg (06/11/21 2:04 PM) Weight 77.11 kg (06/11/21 2:04 PM) Weight Measured (lbs) 169.998 lb (06/11/21 2:04 PM) Height 157.48 cm (06/11/21 2:04 PM) Height/Length Measured (inches) 62 inch (06/11/21 2:04 PM) BSA Measured 1.84 m2 (06/11/21 2:04 PM) Body Mass Index 31.09 kg/m2 (06/11/21 2:04 PM) Social History Social History Type Response Smoking Status 5-9 cigarettes (betw een 1/4 to 1/2 pack)/day in last 30 days entered on: 05/12/21 Sex Care Team Personnel Name: Hermes Ramirez MD Address: [address] [place] [address], [address] [place] [address]-
--- OUTSIDE RECORDS SUMMARY | 2024-03-20 11:35 | XMS_ITS | Continuity of Care Document ---
Author Organization [facility] Address [address] [place] [address] Care Team Providers Care Teaching Assistant Name Role Phone Vijaynixon Hermes Chris Primary Care Physician Encounter ONOFRE MCGRAW [id number] Date(s): 09/27/23 - 09/27/[address] [address]- [place] Discharge Disposition: Left Against Medical Advice Attending Physician: Daron Acuna MD Admitting Physician: Daron Acuna MD Allergies, Adverse Reactions, Alerts Substance Reaction [...] and Plan Extracted from: Title:ED Provider Note Author:Daron Acuna MD Date:09/27/23 Pt left AMA PT left AMA Future Appointments Future Scheduled Tests Radiology* MG [...] Daily, # 30 tab, 11 Refill(s), Pharmacy: [place], [place], 157.48, cm, 01/04/23 15:03:00 CDT, Height/Length Dosing, 81.65, kg, 01/04/23 15:03:00 CDT, Weight Dosing Start Date: 01/11/23 Status: Ordered aspirin 81 mg oral delayed release tablet 81 mg = 1 tab, Oral, Daily, # 30 tab, 0 Refill(s) Start Date: 04/05/21 Status: Ordered gabapentin 300 mg oral capsule 600 mg = 2 cap, Oral, BID, # 120 cap, 2 Refill(s), Pharmacy: [facility] [place], 157.48, cm, 07/23/23 17:59:00 CDT, Height, 88.45, [...] BID, # 60 cap, 11 Refill(s), Pharmacy: [place], [place], 157.48, cm, 01/04/23 15:03:00 CDT, Height/Length Dosing, 81.65, kg, 01/04/23 15:03:00 CDT, Weight Dosing Start Date: 01/11/23 Status: Ordered Nicotrol Inhaler 10 mg inhalation device See Instructions, 6-16 cartriges/day, # 1 EA, 2 Refill(s), Pharmacy: [id number], 157.48, cm, 08/29/23 14:22:00 CDT, Height, 88, kg, 08/29/23 14:27:00 CDT, Weight Dosing Start Date: 08/29/23 Status: Ordered pantoprazole 40 mg oral delayed release tablet 1 tab, Oral, Daily, # 90 tab, 0 Refill(s), [id number], 157.48, cm, 06/07/23 16:07:00 CDT, Height, 89.36, [...] QID, # 360 tab, 0 Refill(s), [id number], 157.48, cm, 08/29/23 14:22:00 CDT, Height, 88, kg, 08/29/23 14:27:00 CDT, Weight Dosing Start Date: 09/05/23 Status: Ordered venlafaxine 37.5 mg oral capsule, extended release 37.5 mg = 1 cap, Oral, Daily, # 90 cap, 0 Refill(s), Pharmacy: [id number]- [place], 157.48, cm, 08/29/23 14:22:00 CDT, Height, 88, [...] 03/09/23 repeat in 6 months 2normal 3normal Vital Signs Most recent to oldest [Reference Range]: 1 Temperature Oral [35.8-37.3 Deg C] 37.1 Deg C (09/27/23 7:21 PM) Heart Rate Monitored [60-100 bpm] 69 bpm (09/27/23 7:21 PM) Respiratory Rate [12-24 br/min] 18 br/mi n (09/27/23 7:21 PM) Blood Pressure [90-140/60-90 mmHg] 138/8 3mmHg (09/27/23 7:21 PM) Mean Arterial Pressure, Cuff [65-140 mmH g] 101 mmHg (09/27/23 7:21 PM) Weight Estimated 81.65 kg (09/27/23 7:21 PM) Body Mass Index Estimated 32.92 kg/m2 (09/27/23 7:21 PM) Height/Length Estimated 157.48 cm (09/27/23 7:21 PM) Social History Social History Type Response Tobacco Current everyday tob acco user Tobacco Use:. Sex Physician Emergency department Note * Daron Acuna MD: PERFORM, MODIFY, MODIFY Event Display: ED Note Physician Authored Date: [id number] MISHA JACKSON :1980 Age:42 years Sex:Female Visit Date:09/27/2023 Primary Care Physician: Hermes Ramirez MD Basic Information Time Seen: Daron Acuna MD / 09/27/2023 20:04 Chief Complaint Pt. presents to the ED with c/o migraine headache since this morning around 0700. Pt. states tookTylenol at 0800 and 1600 but denies any relief. Pt. states last migraine was 3 weeks ago. History Of Present Illness: PT with complicated medical history but many visits to the ER with various issues with requests foropiate medications presents with migraine since 0700 this am with reports of taking tylenol at 0800and 1600 without relief. Pt reports that she last had migraine 3 weeks prior and left AMA due to not being given opiate medications. I discussed this with patient today and she left before I could examine her. Physical Exam Vitals & Measurements T:??37.1?C ??(Oral)?? HR:??69??(Monitored)?? RR:??18?? BP:??138/83?? SpO2:??99%?? HT:??157.48??cm?? WT:??81.65??kg??(Estimated)?? BMI:??32.92?? Pain Score:??8?? O2 Therapy:??Room air?? Procedure No Qualifying Data Assessment/Plan Patient Discharge Condition Pt left AMA Discharge Disposition PT left AMA Medication Reconciliation Unchanged amLODIPine (amLODIPine 5 mg [...] times a day. Refills: 11. ?? nicotine (Nicotrol Inhaler 10 mg inhalation [...] PUD (peptic ulcer disease) Pulmonary nodules Right shoulder pain Right-sided chest wall pain [...] Family History Cancer: Mother. Electronically Signed on 09/27/2023 20:51 CDT Daron Acuna MD Patient Care team information Care Team Personnel Name: Jessee Jones MUSIC PUBLICIST Position: Physician Member Role: Nurse Practitioner Address: Address: [address] [place] [address], [address] Name: Latoya Marquez MUSIC PUBLICIST Position: Physician Member Role: Nurse Practitioner Address: Address: [address] [place] [address] Name: Leonila Gonzalez MUSIC PUBLICIST Position: Physician Member Role: Nurse Practitioner Address: Address: [address] [place] [address] Name: Beth Brandt MUSIC PUBLICIST Position: Physician Member Role: Nurse Practitioner Address: Address: [address] [place] [address] Name: Hermes Ramirez MD Position: Physician Member Role: Informed Provider Address: Address: [address] [place] [address], [address] Name: Pillo Moe MUSIC PUBLICIST Position: Physician Member Role: Nurse Practitioner Address: Address: [address] [place] [address], [address] [facility] Care Team Related Persons Name: STACIA JONES Address: Home [address] [id number] Name: ROBYN JAMA Name: NAIF CHOI Name: MADY CHEN Name: MADY CHEN
--- OUTSIDE RECORDS SUMMARY | 2024-03-20 11:35 | XMS_ITS | Continuity of Care Document ---
Author Organization [facility] Address [address] [place] [address] Care Team Providers Care Bag Builder Name Role Phone Hermes Ramirez Primary Care Physician Encounter ONOFRE MARILUZ [id number] Date(s): 12/09/22 - 12/09/[address] [address]- [place] Encounter Diagnosis Headache, classical migraine(Discharge Diagnosis) - 12/09/22 Acute upper respiratory infection(Discharge Diagnosis) - 12/09/22 Discharge Disposition: Home or Self Care Attending Physician: Fernando House MD Admitting Physician: Fernando House MD Allergies, Adverse Reactions, Alerts Substance Reaction [...] Daily, # 30 tab, 0 Refill(s), Pharmacy: [place], [place], 157, cm, 09/10/22 15:23:00 CDT, Height/Length Dosing, 86.1, kg, 09/10/22 15:23:00 CDT, Weight Dosing Start Date: 10/11/22 Status: Ordered amoxicillin 500 mg oral capsule 1,000 mg = 2 cap, Oral, BID, X 7 days, # 28 cap, 0 Refill(s), 12/17/22 1:01:00 AM CDT, Pharmacy: [place], [place], 157, cm, 12/10/22 0:56:00 CDT, Height/Length Dosing, 81, kg, 12/10/22 0:56:00 CDT, Weight Dosing Start Date: 12/10/22 Stop Date: 12/17/22 Status: Ordered aspirin 81 mg oral delayed [...] BID, # 60 cap, 0 Refill(s), Pharmacy: [place], [place], [address], cm, 09/10/22 15:23:00 CDT, Height/Length Dosing, 86.1, kg, 09/10/22 15:23:00 CDT, Weight Dosing Start Date: 10/11/22 Status: Ordered Pepcid 20 mg oral tablet 20 mg = 1 tab, Oral, BID, 0 Refill(s) Start Date: 09/29/20 Status: Ordered Remeron 7.5 mg =, Oral, Daily, 0 Refill(s) Start Date: 07/16/22 Status: Ordered Tessalon Perles 100 mg oral capsule 100 mg = 1 cap, Oral, TID, PRN as needed for cough, X 7 days, # 21 cap, 0 Refill(s), 12/17/22 1:35:00 AM CDT, Pharmacy: [facility] [place], [place], 157, cm, 12/10/22 0:56:00 CDT, Height/Length Dosing, 81, kg, 12/10/22 0:56:00 CDT, Weight Dosing Start Date: 12/10/22 Stop Date: 12/17/22 Status: Ordered Topamax 25 mg oral tablet [...] [35.8-37.3 Deg C] 37 De g C (12/09/22 11:51 AM) Peripheral Pulse Rate [60-100 bpm] 84 bp m (12/09/22 11:51 AM) 82 bpm (12/09/22 11:45 AM) Respiratory Rate [12-24 br/min] 20 br/mi n (12/09/22 11:51 AM) 20 br/min (12/09/22 11:45 AM) Blood Pressure [90-140/60-90 mmHg] 131/8 6mmHg (12/09/22 11:51 AM) 168/74mmHg *HI* (12/09/22 11:45 AM) Weight 81.65 kg (12/09/22 11:51 AM) Weight Dosing 81.65 kg (12/09/22 12:03 PM) Height 157.480 cm (12/09/22 11:51 AM) Height/Length Dosing 157.480 cm (12/09/22 12:03 PM) Body Mass Index 33.000 kg/m2 (12/09/22 11:51 AM) Social History Social History Type Response Tobacco Current everyday tob acco user Tobacco Use:. Sex Hospital Discharge Instructions Patient Education 12/09/2022 11:09:05 Migraine Headache Migraine Headache A migraine headache [...] these instructions at home: Medicines ??? Take uaqq-gpu-zjdpnwx and prescription medicines only as told by your health care provider. ??? Ask your health care provider if the medicine prescribed to you: ??? Requires you to avoid driving or using heavy machinery. ??? Can cause constipation. You may need to take these actions to prevent or treat constipation: ??? Drink enough fluid to keep your urine pale yellow. ??? Take aelt-rsl-xjccgka or prescription medicines. ??? Eat foods that [...] provider. Document Revised: 06/28/2019 Document Reviewed: 04/18/2019 [employer] Patient Education ?? 2022 [employer]. Follow Up Care 12/09/2022 08:32:04 With:Follow up with primary care provider Address:Unknown When:2 to 4 days Physician Emergency department Note * Andrew Francis DO: MODIFY, PERFORM Event Display: ED Note Physician Authored Date: [id number] MISHA JACKSON :1980 Age:42 years Sex:Female Visit Date:12/09/2022 Primary Care Physician: Hermes Ramirez MD Basic Information Time Seen: Andrew Francis DO / 12/09/2022 09:16 History Of Present Illness: Of migraine headache??she has had off and on all week??and??has been battling an upper respiratory infection which seems to make it worse??patient has had several visits to the emergency room this week for the headache in the??upper respiratory infection Review of Systems: Constitutional:?No??fevers,?No??chills,?No??sweats Eye:?No??recent visual problems ENT:?No??ear pain,?Positive for??nasal congestion,?No??sore throat Respiratory:?No??shortness of breath,?No??cough Cardiovascular:?No??Chest pain,?No??palpitations,?No??syncope Gastrointestinal:?Nonausea,?No??vomiting,?No??diarrhea Genitourinary:?No??hematuria Clemente/Lymph:?No??bruising tendency,?No??swollen lymph glands Endocrine:?No??excessive thirst,??No??excessive hunger Musculoskeletal:??No??back pain,??No??neck pain,??No??joint pain,??No??muscle pain,??No??decreased range of motion Integumentary:?No??rash,?No??pruritus,?No??abrasions Neurologic: Alert & oriented X 4/headache Psychiatric:?No??anxiety,?No??depression ?? Physical Exam General: Alert and oriented, well nourished, no acute distress. Eye: PERRL, EOMI, normal conjunctiva. HENT: Normocephalic, clear tympanic membranes, normal hearing, moist oral mucosa, no scleral icterus, no sinus tenderness.rhinorrhea Neck: Supple, non-tender, no carotid bruits, no [...] mood and affect. Procedure No Qualifying Data Reexamination/Reevaluation headache improved Assessment/Plan Ordered: morphine, 4 mg = 1 mL, IM, Injection, Once, First Dose: 12/09/22 10:00:00 CDT, Stop Date: 12/09/22 10:00:00 CDT, Physician Stop, Routine Phenergan, 25 mg = 1 mL, IM, Injection, Once, First Dose: 12/09/22 10:00:00 CDT, Stop Date: 12/09/22 10:00:00 CDT, Physician Stop, Routine Patient Discharge Condition good Discharge Disposition home Medication Reconciliation Unchanged amLODIPine (amLODIPine 5 mg oral tablet)1 tab Oral (given by mouth) every day. Refills: 0. ?? aspirin (aspirin 81 mg oral delayed release tablet)1 tab Oral (given by mouth) every day. ?? famotidine (Pepcid 20 mg oral tablet)1 [...] 2 times a day. Refills: 0. ?? mirtazapine (Remeron)7.5 Milligrams Oral (given by [...] transplant disorder Lumbar back pain Migraine headache Migraine headache Nausea Numbness and tingling of right arm Obesity Pain, joint, multiple sites Right shoulder pain Right-sided chest wall pain Sprain of knee Squamous cell carcinoma in situ Tachycardia Thrombocytopenia Tobacco use Viral upper respiratory infection Weight gain Historical Abdominal pain in female [...] Family History Cancer: Mother. Electronically Signed on 12/09/22 11:09 AM Andrew Francis DO Patient Care team information Care Team Personnel Name: Jessee Jones DESIGNER Position: Physician Member Role: Nurse Practitioner Address: Address: [address] [place] [address], [address] Name: Latoya Marquez DESIGNER Position: Physician Member Role: Nurse Practitioner Address: Address: [address] [place] [address] Name: Leonila Gonzalez DESIGNER Position: Physician Member Role: Nurse Practitioner Address: Address: [address] [place] [address] Name: Beth Brandt DESIGNER Position: Physician Member Role: Nurse Practitioner Address: Address: [address] [place] [address] Name: Hermes Ramirez MD Position: Physician Member Role: Informed Provider Address: Address: [address] [place] [address], [address] [place] [address]- Name: Pillo Moe DESIGNER Position: Physician Member Role: Nurse Practitioner Address: Address: [address] [place] [address], [address] [facility] Name: Gia Underwood RN Position: Nurse Member Role: ED Nurse Name: Andrew Francis DO Position: Physician Member Role: Physician Care Team Related Persons Name: STACIA JONES Address: Home [address] [place] [phone] Name: ROBYN JAMA
--- OUTSIDE RECORDS SUMMARY | 2024-03-20 11:35 | XMS_ITS | Continuity of Care Document ---
Author Organization [facility] Address [address] [place] [address]- Care Team Providers Care It Infrastructure Engineer Name Role Phone Hermes Ramirez Primary Care Physician Encounter ONOFRE MCGRAW [id number] Date(s): 10/31/22 - 10/31/22 [facility] [address] [place] [address]- Encounter Diagnosis Dysuria(Discharge Diagnosis) - 10/31/22 Urinary symptom or sign(Discharge Diagnosis) - 10/31/22 Mid back pain(Discharge Diagnosis) - 10/31/22 Discharge Disposition: Home or Self Care Attending Physician: Lida Spence MD Allergies, Adverse Reactions, Alerts Substance Reaction Severity Status codeine Unknown Itching Severe Active gentamicin Moderate Active erythromycin Medication interaction Activ e azithromycin Unknown Severe Active Toradol Kidney failure as a complication of care Severe Active NSAIDs Severe Active aspirin Medication interaction Severe Activ e Assessment and Plan Future Scheduled Tests Laboratory* Giardia lamblia Ag, EIA LC 04/07/22 * Cryptosporidium EIA LC 04/07/22 * Stool Culture LC 04/07/22 * Urinalysis with Microscopic 10/31/22 * Urine Culture 10/31/22 * Clostridium difficile Amp 04/07/22 * Ova + Parasite Exam 04/07/22 Radiology* XR Shoulder Complete 2+ Views Right 07/04/22 Functional Status 10/31/22 Other exposure to Infectious Disease Non e [...] Daily, # 30 tab, 0 Refill(s), Pharmacy: [place], [place], [address], cm, 09/10/22 15:23:00 CDT, Height/Length Dosing, 86.1, kg, 09/10/22 15:23:00 CDT, Weight Dosing Start Date: 10/11/22 Status: Ordered aspirin 81 mg oral delayed [...] BID, # 60 cap, 0 Refill(s), Pharmacy: [place], [place], [address], cm, 09/10/22 15:23:00 CDT, Height/Length Dosing, 86.1, kg, 09/10/22 15:23:00 CDT, Weight Dosing Start Date: 10/11/22 Status: Ordered Pepcid 20 mg oral tablet 20 mg = 1 tab, Oral, BID, 0 Refill(s) Start Date: 09/29/20 Status: Ordered Remeron 7.5 mg =, Oral, Daily, 0 Refill(s) Start Date: 07/16/22 Status: Ordered Topamax 25 mg oral tablet [...] Laboratory List Name Date Urine Dipstick POC 10/31/22 Most recent to oldest [Reference Range]: 1 Protein Urine Dipstick POC Negative (10/31/22 2:31 PM) Ketones Urine Dipstick POC Negative (10/31/22 2:31 PM) Leukocytes Urine Dipstick Negative (10/31/22 2:31 PM) Nitrite Urine Dipstick Negative (10/31/22 2:31 PM) Urobilinogen Urine Dipstick 0.2 mg/dl (10/31/22 2:31 PM) pH Urine Dipstick 7 (10/31/22 2:31 PM) Blood Urine Dipstick Negative (10/31/22 2:31 PM) Specific Howe Urine Dipstick 1.010 (10/31/22 2:31 PM) Bilirubin Urine Dipstick Negative (10/31/22 2:31 PM) Glucose Urine Dipstick Negative (10/31/22 2:31 PM) Urine Color Urine Dipstick Dark yellow (10/31/22 2:31 PM) Urine Appearance Urine Dipstick Clear (10/31/22 2:31 PM) Vital Signs Most recent to oldest [Reference Range]: 1 Temperature Tympanic [36.6-37.9 Deg C] 3 6.8 Deg C (10/31/22 2:02 PM) Peripheral Pulse Rate [60-100 bpm] 70 bp m (10/31/22 2:02 PM) Blood Pressure [90-140/60-90 mmHg] 136/8 8mmHg (10/31/22 2:02 PM) Weight 90.40 kg (10/31/22 2:02 PM) Weight Measured (lbs) 199.298 lb (10/31/22 2:02 PM) Height 157.48 cm (10/31/22 2:02 PM) Height/Length Measured (inches) 62 inch (10/31/22 2:02 PM) BSA Measured 1.99 m2 (10/31/22 2:02 PM) Body Mass Index 36.45 kg/m2 (10/31/22 2:02 PM) Social History Social History Type Response Tobacco Current everyday tob acco user Tobacco Use:. Sex Hospital Discharge Instructions Follow Up Care 10/31/2022 13:50:45 With:Follow up with primary care provider Address: When: Unknown Physician Outpatient Note * Lida Spence MD: PERFORM Event Display: Office Clinic Note Physician Authored Date: [id number] MISHA JACKSON :1980 Age:42 years Sex:Female Visit Date:10/31/2022 Primary Care Physician: Hermes Ramirez MD Chief Complaint Patient here for stress, anxiety, pain in spine (middle back) and possible UTI History of Present Illness Patient is a 42-year-old female who is here for possible UTI.?? Patient says that she has noted trouble initiating and??stopping urination. ??She has??discomfort at this time.?This has been happening in the last 2 days.?? She denies any??fevers but feels that she might have some chills. ??She denies any blood??in the urine.?? She denies any other??bowel issues. ??Patient thinks that she has a UTI. ??She has not taken anything for it. ?? Patient is also here for her??chronic mid back??pain.?? Patient says that??pain is mostly dull and intermittent. ??Mild to moderate in nature.?? She has noted this back pain??for the last few years and its becoming worse. ??She denies any new??numbness or weakness.?? Patient says that her back pain is worse with??activity. ??It gets better when she is lying down and resting.? Physical Exam Vitals & Measurements T:??36.8?C ??(Tympanic)?? HR:??70??(Peripheral)?? BP:??136/88?? SpO2:??99%?? HT:??157.48??cm?? WT:??90.40??kg?? BMI:??36.45?? BSA:??1.99?? General: ??The patient is well-nourished, well-groomed, pleasant and cooperative in no acute distress.?? Integumentary: ??Warm, dry, and intact. No rashes, petechiae, or purpura.?? HEENT: The head is normocephalic, atraumatic. Sclerae are clear and anicteric. Pupils are equal, regular and reactive to light. Extraocular movements intact. ??Conjunctivae are pink. Respiratory: ??Lungs are clear to auscultation bilaterally without rhonchi, wheezes, or rales. Goodair movement throughout.?? Cardiovascular: ??Normal S1, S2. Regular rate and rhythm without murmurs, gallops, or rubs.?? Gastrointestinal: ??Abdomen is soft, nontender, and nondistended, with active bowel sounds in all four quadrants.?No CVA or suprapubic tenderness. Psychiatric:??Oriented X3 with appropriate mood and affect and attention span and ability to concentrate are normal. Normal speech with appropriate language. No evidence of hallucination, delusions, homicidal/suicidal ideation.?? Extremities: ??No cyanosis, clubbing, or edema. No joint swelling or tenderness. Full range of motion in all extremities.?Noted mild thoracic kyphosis. ??No??paraspinal tenderness or spasm.?? Motor is 5/5. ??No sensory deficits.?? Steady gait. Depression Screen?? PHQ 2?? Feeling Down, Depressed, Hopeless: Not at all Initial Depression Screen Score: 0 Score Little Interest - Pleasure in Activities: Not at all Assessment/Plan 1.??Dysuria??R30.0 Noted unremarkable urine dip. ??We will send urine to lab.. Advised to push PO fluids, practice good perineal hygiene. Take OTC probiotics. Call for worsening fevers, pelvic pain, blood in urine. Ordered: Urinalysis with Microscopic, Urine, Routine Collect, 10/31/22, Once, Nurse collect, Print Label, Dysuria, Order for future visit Urine Culture, Urine, Clean Catch, Routine collect, RT - Routine, 10/31/22, Once, Nurse collect, Dysuria, Order for future visit ?? 2.??Mid back pain??M54.9 Chronic as per patient but has not been??checked in the past. ??She denies any new??accidents or injuries. ??She denies any radicular or myelopathic features.?? Likely degenerative in nature. ??For x-rays. ??Patient requested to be off work for today and tomorrow. ??Note written. Ordered: XR Spine Thoracic 3 Views, 10/31/22, Routine, Reason: Mid back pain x years, Transport Mode: Ambulatory, Mid back pain ?? Urinary symptom or sign??R39.9 ?? Future Orders Urinalysis with Microscopic, Urine, Routine Collect, 10/31/22, Once, Nurse collect, Print Label, Urinary symptom or sign, Order for future visit Urine Culture, Urine, Routine collect, RT - Routine, 10/31/22, Once, Nurse collect, Urinary symptomor sign, Order for future visit Follow Up Instructions With When Contact Information Follow up with primary care provider Additional Instructions: Problem List/Past Medical History Ongoing Acne Anxiety [...] (05/08/2020)??? delivery???cyst removal from breast???Hernia???liver transplant Medications amLODIPine 5 mg oral tablet, 5 mg= 1 tab, Oral, Daily aspirin 81 mg oral delayed release tablet, 81 mg= 1 tab, Oral, Daily gabapentin 300 mg oral capsule LORazepam 0.5 mg oral tablet metoprolol succinate 100 mg oral capsule, extended release, 100 mg= 1 cap, Oral, BID Pepcid 20 mg oral tablet, 20 mg= 1 tab, Oral, BID Remeron, 7.5 mg, Oral, Daily Topamax 25 mg oral tablet, [...] pack a day. Family History Cancer: Mother. Immunizations Vaccine Date Status tetanus/diphth/pertuss (Tdap) adult/adol 10/18/2021 Given hepatitis B adult vaccine 11/10/2017 Recorded hepatitis B adult vaccine 10/09/2017 Recorded hepatitis A adult vaccine 10/09/2017 Recorded tetanus/diphth/pertuss (Tdap) adult/adol 05/10/2017 Recorded tetanus/diphth/pertuss (Tdap) adult/adol 03/20/2017 Recorded tetanus/diphth/pertuss (Tdap) adult/adol 05/25/2012 Recorded Lab Results Test Name Test Result Date/Time Urine Color Urine Dipstick Dark yellow 10/31/2022 14:31 CDT Urine Appearance Urine Dipstick Clear 10/31/2022 14:31 CDT pH Urine Dipstick 7 10/31/2022 14:31 CDT Specific Howe Urine Dipstick 1.010 10/31/2022 14:31 CDT Blood Urine Dipstick Negative 10/31/2022 14:31 CDT Protein Urine Dipstick POC Negative 10/31/2022 14:31 CDT Nitrite Urine Dipstick Negative 10/31/2022 14:31 CDT Leukocytes Urine Dipstick Negative 10/31/2022 14:31 CDT Bilirubin Urine Dipstick Negative 10/31/2022 14:31 CDT Urobilinogen Urine Dipstick 0.2 mg/dl 10/31/2022 14:31 CDT Ketones Urine Dipstick POC Negative 10/31/2022 14:31 CDT Glucose Urine Dipstick Negative 10/31/2022 14:31 CDT Electronically Signed on 10/31/22 03:04 PM Lida Spence MD Patient Care team information Care Team Personnel Name: Jessee Jones RECRUITER SPECIALIST Position: Physician Member Role: Nurse Practitioner Address: Address: [address] [place] [address] Name: Latoya Marquez RECRUITER SPECIALIST Position: Physician Member Role: Nurse Practitioner Address: Address: [address] [place] [address] Name: Leonila Gonzalez RECRUITER SPECIALIST Position: Physician Member Role: Nurse Practitioner Address: Address: [address] [place] [address] Name: Beth Brandt RECRUITER SPECIALIST Position: Physician Member Role: Nurse Practitioner Address: Address: [address] [place] [id number] Name: Hermes Ramirez MD Position: Physician Member Role: Informed Provider Address: Address: [address] [place] [address], [address] [place] [address]- Name: Pillo Moe RECRUITER SPECIALIST Position: Physician Member Role: Nurse Practitioner Address: Address: [address] [place] [address], [address] [facility] Care Team Related Persons Name: STACIA JONES Address: Home [address], [place] [id number] Name: ROBYN JAMA Address: Home
--- OUTSIDE RECORDS SUMMARY | 2024-03-20 11:35 | XMS_ITS | Continuity of Care Document ---
Author Organization [facility] Address [address] [place] [address] Care Team Providers Care Consulting Engineer Name Role Phone Hermes Ramirez Chris Primary Care Physician Encounter RANDYEver MCGRAW [id number] Date(s): 08/08/23 - 08/08/[address] [address] [place] Encounter Diagnosis Acute migraine(Discharge Diagnosis) - 08/08/23 Discharge Disposition: Left Against Medical Advice Attending Physician: Lucinda Lawrence MD Admitting Physician: Lucinda Lawrence MD Allergies, Adverse Reactions, Alerts Substance Reaction [...] Daily, # 30 tab, 11 Refill(s), Pharmacy: [facility] [place], [place], 157.48, cm, 01/04/23 15:03:00 CDT, Height/Length Dosing, 81.65, kg, 01/04/23 15:03:00 CDT, Weight Dosing Start Date: 01/11/23 Status: Ordered aspirin 81 mg oral delayed release tablet 81 mg = 1 tab, Oral, Daily, # 30 tab, 0 Refill(s) Start Date: 04/05/21 Status: Ordered gabapentin 300 mg oral capsule 600 mg = 2 cap, Oral, BID, # 120 cap, 2 Refill(s), [facility] [place], 157.48, cm, 07/23/23 17:59:00 CDT, Height, [...] BID, # 60 cap, 11 Refill(s), Pharmacy: [place], [place], [address], cm, 01/04/23 15:03:00 CDT, Height/Length Dosing, 81.65, kg, 01/04/23 15:03:00 CDT, Weight Dosing Start Date: 01/11/23 Status: Ordered pantoprazole 40 mg oral delayed release tablet 1 tab, Oral, Daily, # 90 tab, 0 Refill(s), [facility], 157.48, cm, 06/07/23 16:07:00 CDT, Height, 89.36, [...] QID, # 360 tab, 0 Refill(s), [id number], 157.48, cm, 06/07/23 16:07:00 CDT, Height, 89.36, [...] Completed liver transplant Complete d 1normal 2normal Vital Signs Most recent to oldest [Reference Range]: 1 Temperature Oral [35.8-37.3 Deg C] 36.8 Deg C (08/08/23 5:40 PM) Heart Rate Monitored [60-100 bpm] 63 bpm (08/08/23 5:40 PM) Respiratory Rate [12-24 br/min] 16 br/mi n (08/08/23 5:40 PM) Blood Pressure [90-140/60-90 mmHg] 158/9 7mmHg *HI* (08/08/23 5:40 PM) Mean Arterial Pressure, Cuff [65-140 mmH g] 117 mmHg (08/08/23 5:40 PM) Weight 81.65 kg (08/08/23 5:40 PM) Weight Dosing 81.650 kg (08/08/23 5:40 PM) Height 157.48 cm (08/08/23 5:40 PM) Body Mass Index 32.92 kg/m2 (08/08/23 5:40 PM) Social History Social History Type Response Tobacco Current everyday tob acco user Tobacco Use:. Sex Hospital Discharge Instructions Patient Education 08/08/2023 17:08:49 Migraine Headache Migraine Headache A migraine headache [...] these instructions at home: Medicines ??? Take jnkc-fgi-wvnveol and prescription medicines only as told by your health care provider. ??? Ask your health care provider if the medicine prescribed to you: ??? Requires you to avoid driving or using heavy machinery. ??? Can cause constipation. You may need to take these actions to prevent or treat constipation: ??? Drink enough fluid to keep your urine pale yellow. ??? Take jnpb-iwv-wdfjygy or prescription medicines. ??? Eat foods that [...] provider. Document Revised: 08/18/2022 Document Reviewed: 04/18/2019 [employer] Patient Education ?? 2022 [employer] Follow Up Care 08/08/2023 16:04:29 With:Follow up with primary care provider Address:Unknown When:3 to 5 days Patient Care team information Care Team Personnel Name: Jessee Jones SKIN CARE CONSULTANT Position: Physician Member Role: Nurse Practitioner Address: Address: [address] [place] [address], [address] [place] [address] Name: Latoya Marquez SKIN CARE CONSULTANT Position: Physician Member Role: Nurse Practitioner Address: Address: [address] [place] [address] Name: Leonila Gonzalez SKIN CARE CONSULTANT Position: Physician Member Role: Nurse Practitioner Address: Address: [address] [place] [address] Name: Beth Brandt SKIN CARE CONSULTANT Position: Physician Member Role: Nurse Practitioner Address: Address: [address] [place] [address] Name: Hermes Ramirez MD Position: Physician Member Role: Informed Provider Address: Address: [address] [facility], [address] Name: Pillo Moe SKIN CARE CONSULTANT Position: Physician Member Role: Nurse Practitioner Address: Address: [address] [facility], [address] [facility] Care Team Related Persons Name: STACIA JONES Address: Home [address] [phone] Name: NAIF CHOI Name: MADY CHEN
--- OUTSIDE RECORDS SUMMARY | 2024-03-20 11:35 | XMS_ITS | Continuity of Care Document ---
Author Organization [facility] Address [address] [place] [address] Care Team Providers Care Weight Reducing Technician Name Role Phone Hermes Ramirez Primary Care Physician [phone] Encounter [facility] [id number] Date(s): 05/04/20 - 05/04/20 [address] [place] [address]- Discharge Disposition: Home or Self Care Attending Physician: Nirav Carpio MD Admitting Physician: Nirav Crapio MD Allergies, Adverse Reactions, Alerts Substance Reaction Severity Status erythromycin Medication interaction Activ e aspirin Medication interaction Activ e Toradol Kidney failure as a complication of care Active Assessment and Plan Diagnostic Tests Pending * Tacrolimus (FK506), Blood LC 05/04/20 Future Scheduled Tests Laboratory* COVID-19 Testing Send Out - [place] 10/25/19 Immunizations Given and Recorded Vaccine Date Status Refusal Reason hepatitis B adult vaccine 11/10/17 Recorded hepatitis B adult vaccine 10/09/17 Recorded hepatitis A adult vaccine 10/09/17 Recorded tetanus/diphth/pertuss (Tdap) adult/adol 05/10/17 Recorded tetanus/diphth/pertuss (Tdap) adult/adol 03/20/17 Recorded tetanus/diphth/pertuss (Tdap) adult/adol 05/25/12 Recorded Medications Lasix 20 mg oral tablet 20 mg = 1 tab, Oral, Daily, # 5 tab, 0 Refill(s), Pharmacy: [id number] Start Date: 04/14/20 Stop Date: 04/19/20 Status: [...] nausea/vomiting, # 20 tab, 0 Refill(s), Pharmacy: [id number] Start Date: 04/28/19 Stop Date: 05/03/19 Status: [...] Results Laboratory List Name Date .Morphology ([facility]) 05/04/20 Automated Diff 05/04/20 CBC w/ Diff 05/04/20 Comprehensive Metabolic Panel 05/04/20 Magnesium Level 05/04/20 PT/ INR 05/04/20 Phosphorus Level 05/04/20 Most recent to oldest [Reference Range]: 1 WBC [4.0-11.5 K/mcL] 4.0 K/mcL (05/04/20 9:21 AM) RBC [4.20-5.40 x10^6/mcL] 2.36 x10^6/mcL *LOW* (05/04/20 9:21 AM) Neutro Auto 64.4 % *NA* (05/04/20 9:21 AM) Lymph Auto 18.7 % *NA* (05/04/20 9:21 AM) Weber Auto 7.8 % *NA* (05/04/20 9:21 AM) Basophil Auto 0.3 % *NA* (05/04/20 AM) Prothrombin Time [9.0-11.0 seconds] 15.5 seconds *HI* (05/04/20: AM) INR 1.6 *NA* (05/04/20 AM) BUN [7-18 mg/dL] 24 mg/dL *HI* (05/04/20: AM) Glucose Level [70-110 mg/dL] 116 mg/dL *HI* (05/04/20 AM) Potassium Level [3.5-5.1 mmol/L] 4.1 mmo l/L (05/04/20: AM) Baso Absolute [0.0-0.1 x10^3/mcL] 0.0 x1 0^3/mcL (05/04/20: AM) MCV [78.0-100.0 fL] 103.4 fL *HI* (05/04/20: AM) RBC Morph Reviewed (05/04/20 AM) AST [15-37 unit/L] 89 unit/L *HI* (05/04/20: AM) ALT [12-78 unit/L] 55 unit/L (05/04/20: AM) MCHC [29.0-37.5 g/dL] 32.8 g/dL (05/04/20: AM) Sodium Level [136-145 mmol/L] 144 mmol/L (05/04/20: AM) Lymph Absolute [0.8-5.8 x10^3/mcL] 0.7 x 10^3/mcL *LOW* (05/04/20: AM) Hct [36.0-48.0 %] 24.4 % *LOW* (05/04/20: AM) Calcium Level [8.5-10.1 mg/dL] 8.5 mg/dL (05/04/20: AM) Weber Absolute [0.1-1.5 x10^3/mcL] 0.3 x1 0^3/mcL (05/04/20: AM) Phosphorus Level [2.6-4.7 mg/dL] 3.8 mg/ dL (05/04/20: AM) Albumin Level [3.4-5.0 g/dL] 2.3 g/dL *LOW* (05/04/20: AM) Protein Total [6.4-8.2 g/dL] 5.5 g/dL *LOW* (05/04/20: AM) MCH [27.0-34.0 pg] 33.9 pg (05/04/20: AM) Magnesium Level [1.8-2.4 mg/dL] 1.5 mg/d L *LOW* (05/04/20: AM) Neutro Absolute [1.5-8.1 x10^3/mcL] 2.5 x10^3/mcL (05/04/20: AM) Bilirubin Total [0.0-1.0 mg/dL] 9.1 mg/d L *HI* (05/04/20 9: AM) Hgb [12.0-16.0 g/dL] 8.0 g/dL *LOW* (05/04/20: AM) Alk Phos [46-130 unit/L] 222 unit/L *HI* (05/04/20 9: AM) MPV [6.0-10.0 fL] 11.3 fL *HI* (05/04/20: AM) Platelets [150-450 K/mcL] 50 K/mcL 1 *LOW* (05/04/20: AM) CO2 [21-32 mmol/L] 21 mmol/L (05/04/20 9: AM) Eos Absolute [0.0-0.5 x10^3/mcL] 0.2 x10 ^3/mcL (05/04/20 9:21 AM) Aniso 1+ (05/04/20 9:21 AM) Macrocyte 1+ (05/04/20: AM) eGFR Non-AA 21 *NA* (05/04/20: AM) eGFR AA 26 *NA* (05/04/20 9: AM) Chloride Level [97-107 mmol/L] 112 mmol/ L *HI* (05/04/20 9: AM) RDW-CV [11.5-15.0 %] 16.6 % *HI* (2/15/21 9:21 AM) Imm Gran Absolute [0.0-0.1 x10^3/mcL] 0. 1 x10^3/mcL (05/04/20 9:21 AM) Imm Gran Auto 3.0 % *NA* (05/04/20 9:21 AM) NRBC Auto 0.5 % *NA* (05/04/20 9:21 AM) NRBC Absolute [0.0-0.0 x10^3/mcL] 0.0 x1 0^3/mcL (05/04/20 9:21 AM) Creatinine Level [0.60-1.30 mg/dL] 2.70 mg/dL *HI* (05/04/20 9:21 AM) Anion Gap [5-15 mmol/L] 15 mmol/L (05/04/20 9:21 AM) Eos, Auto 5.8 % *NA* (05/04/20 9:21 AM) 1Result Comment: Platelet count verified by visual estimate. Social History Social History Type Response Smoking Status 4 or less cigarettes (less than 1/4 pack)/day in last 30 days entered on: 04/08/20 Sex
--- OUTSIDE RECORDS SUMMARY | 2024-03-20 11:35 | XMS_ITS | Continuity of Care Document ---
Author Organization [facility] Address [address] [place] [address] Care Team Providers Care Diabetes Manager Name Role Phone Hermes Ramirez Primary Care Physician [phone] Encounter [facility] [id number] Date(s): 03/24/21 - 03/24/21 [address] [place] [address]- [place] Discharge Disposition: Home or Self Care Attending Physician: Hermes Ramirez MD Admitting Physician: Hermes Ramirez MD Referring Physician: Hermes Ramirez MD Allergies, Adverse Reactions, Alerts Substance Reaction Severity Status gentamicin Moderate Active erythromycin Medication interaction Activ e aspirin Medication interaction Activ e Toradol Kidney failure as a complication of care Active NSAIDs Severe Active Assessment and Plan Future Appointments Future Scheduled Tests Laboratory* Rheumatoid Arthritis Factor LC 03/24/21 * CCP Antibodies IgG/IgA LC 03/24/21 * Sedimentation Rate (ESR) 03/24/21 Immunizations Given and Recorded Vaccine Date Status [...] BID, # 180 tab, 3 Refill(s), Pharmacy: [place], [place], [address], cm, 10/22/20 21:26:00 CDT, Height/Length Dosing, 74, kg, 10/22/20 21:26:00 CDT, Weight Dosing Start Date: 12/18/20 Status: Ordered Pepcid 20 mg oral tablet 20 mg = 1 tab, Oral, BID, 0 Refill(s) Start Date: 09/29/20 Status: Ordered Retin-A 0.05% topical cream 1 sanjiv, Topical, every day at bedtime, # 45 g, 2 Refill(s), Pharmacy: [place], [place], [address], cm, 08/18/20 12:26:00 CDT, Height/Length [...] Complete d Results Laboratory List Name Date .Urine Volume 03/24/21 Urinalysis Microscopic 03/24/21 Urinalysis with Culture if Indicated 03/24 Most recent to oldest [Reference Range]: 1 UA Color Yellow (03/24/21 3:05 PM) UA WBC [0-5] 0-5 (03/24/21 3:05 PM) UA Urobilinogen [Normal mg/dL] Normal mg /dL (03/24/21 3:05 PM) UA Bili [Negative mg/dL] Negative mg/dL (03/24/21 3:05 PM) UA Ketones [Negative mg/dL] Negative mg/ dL (03/24/21 3:05 PM) UA RBC [0-3] 0-3 (03/24/21 3:05 PM) UA Leuk Est [Negative Guille/mcL] Negative Guille/mcL (03/24/21 3:05 PM) UA Nitrite [Negative] Negative (03/24/21 3:05 PM) UA Glucose [Normal mg/dL] Normal mg/dL (03/24/21 3:05 PM) UA Bacteria [None Seen] Occasional *ABN* (03/24/21 3:05 PM) UA Protein [Negative mg/dL] Negative mg/ dL (03/24/21 3:05 PM) UA Blood [Negative Rocael/mcL] Negative Rocael /mcL (03/24/21 3:05 PM) UA Mucous [None Seen] None Seen (03/24/21 3:05 PM) UA Spec Grav 1.015 *NA* (03/24/21 3:05 PM) UA Squam Epithelial [None Seen] Few (03/24/21 3:05 PM) UA pH 5 *NA* (03/24/21 3:05 PM) UA Appear [Clear] Clear (03/24/21 3:05 PM) UA Culture Ind?. Not Indicated (03/24/21 3:05 PM) Urine Srce Clean Catch (03/24/21 3:05 PM) Urine Volume 12 mL (03/24/21 3:05 PM) UA Yeast [None Seen] None Seen (03/24/21 3:05 PM) Social History Social History Type Response Smoking Status 5-9 cigarettes (betw een 1/4 to 1/2 pack)/day in last 30 days entered on: 08/18/20 Sex
--- OUTSIDE RECORDS SUMMARY | 2024-03-20 11:35 | XMS_ITS | Continuity of Care Document ---
Author Organization [facility] Address [address] [place] [address] Care Team Providers Care French Weaver Name Role Phone Hermes Ramirez Primary Care Physician [phone] Encounter [facility] [id number] Date(s): 02/07/24 - 02/07/[address] [address]- [place] Encounter Diagnosis Chronic pain syndrome(Discharge Diagnosis) - 02/07/24 Headache, common migraine(Discharge Diagnosis) - 02/07/24 Pharyngitis(Discharge Diagnosis) - 02/07/24 Discharge Disposition: Home or Self Care Attending Physician: Lucinda Lawrence MD Admitting Physician: Lucinda Lawrence MD Allergies, Adverse Reactions, Alerts Substance Criticality Severity Reaction Reaction Severity Status codeine High criticality Severe Unknown Itching Active gentamicin High criticality Moderate Ac tive erythromycin Medication interaction Active aspirin High criticality Severe Medication interaction Active Toradol High criticality Severe Kidney fail ure as a complication of care Active NSAIDs High criticality Severe Act luis miguel azithromycin High criticality Severe Unknown Active morphine 1 Low criticality Mild redness Itching Active 1localized reaction at iv site Assessment and Plan Extracted from: Title:ED Provider Note Author:Lucinda Lawrence Date:02/07/24 Assessment/Plan Chronic pain syndrome??G89.4 Headache, common migraine??G43.009 Pharyngitis??J02.9 Nonstreptococcal??pharyngitis Orders: morphine, 2 mg = 1 mL, Intramuscular, Injection, Once, First Dose: 02/07/24 22:28:00 SUPERVISOR BRIAR SHOP, Stop Date: 02/07/24 22:28:00 SUPERVISOR [employer]RIAR [employer], Physician Stop, STAT Patient Discharge Condition Stable Discharge Disposition Home with family Patient Education Sore Throat Rapid Strep Test Managing Pain Without Opioids Migraine Headache, Gifm-zl-Wfcq Follow Up With When Contact Information Follow up with primary care provider Within 1 to 2 days Additional Instructions: Follow-up with primary care physician??tomorrow,??if not better Future Appointments Future Scheduled Tests Radiology* MG [...] Daily, # 30 tab, 11 Refill(s), Pharmacy: [place], [place], 157.48, cm, 01/04/23 15:03:00 CDT, Height/Length [...] BID, # 120 cap, 2 Refill(s), [facility]acy: [id number], 157.5, cm,02/06/24 16:22:00 SUPERVISOR BRIAR SHOP, Height, 89.91, kg, 02/06/24 16:28:00 SUPERVISOR [employer]RIAR [employer], Weight Dosing Start Date: 02/07/24 Status: Ordered [...] BID, # 60 cap, 11 Refill(s), Pharmacy: [place], 157.48, cm, 01/04/23 15:03:00 CDT, Height/Length Dosing, 81.65, kg, 01/04/23 15:03:00 CDT, Weight Dosing Start Date: 01/11/23 Status: Ordered nicotine 21 mg/24 hr transdermal film, extended release 1 patches, Transdermal, Daily, # 14 patches, 1 Refill(s), Pharmacy: [id number], 157.48, cm, 01/01/24 14:49:00 CDT, Height, 87.09, kg, 01/01/24 14:53:00 CDT, Weight Dosing Start Date: 01/01/24 Status: Ordered Nicotrol Inhaler 10 mg inhalation device See Instructions, 6-16 cartriges/day, # 1 EA, 2 Refill(s), Pharmacy: [id number], 157.48, cm, 08/29/23 14:22:00 CDT, Height, 88, kg, 08/29/23 14:27:00 CDT, Weight Dosing Start Date: 08/29/23 Status: Ordered pantoprazole 40 mg oral delayed release tablet 1 tab, Oral, Daily, # 90 tab, 0 Refill(s), Pharmacy: [id number], 157.48, cm, 06/07/23 16:07:00 CDT, Height, 89.36, [...] QID, # 360 tab, 0 Refill(s), [facility]: [id number], 157.48, cm, 08/29/23 14:22:00 CDT, Height, 88, kg, 08/29/23 14:27:00 CDT, Weight Dosing Start Date: 09/05/23 Status: Ordered venlafaxine 37.5 mg oral capsule, extended release 37.5 mg = 1 cap, Oral, Daily, # 90 cap, 0 Refill(s), [facility]: [id number] [place], 157.48, cm, 09/28/23 18:18:00 CDT, Height, 81.65, [...] 2normal 3normal Results Laboratory List Name Date Strep A Screen 02/07/24 Most recent to oldest [Reference Range]: 1 Streptococcus A [Negative] Negative (02/07/24 10:17 PM) Vital Signs Most recent to oldest [Reference Range]: 1 2 Temperature Oral [35.8-37.3 Deg C] 36.6 Deg C (02/07/24 9:30 PM) Peripheral Pulse Rate [60-100 bpm] 72 bp m (02/07/24 10:58 PM) 72 bpm (02/07/24 9:30 PM) Respiratory Rate [12-24 br/min] 18 br/mi n (02/07/24 10:58 PM) 18 br/min (02/07/24 9:30 PM) Blood Pressure [90-120/60-80 mmHg] 156/9 4mmHg *HI* (02/07/24 10:58 PM) 141/88mmHg *HI* (02/07/24 9:30 PM) Mean Arterial Pressure, Cuff [65-140 mmH g] 106 mmHg (02/07/24 9:30 PM) Weight 92.44 kg (02/07/24 9:30 PM) Weight Dosing 92.440 kg (02/07/24 9:30 PM) Height 157.48 cm (02/07/24 9:30 PM) Body Mass Index 37.27 kg/m2 (02/07/24 9:30 PM) Social History Social History Type Response Tobacco Current everyday tob acco user Tobacco Use:. Sex Sex Representation Female (finding) Hospital Discharge Instructions Patient Education 02/07/2024 22:33:55 Sore Throat Sore Throat A sore throat is pain, burning, irritation, or scratchiness in the throat. When you have a sore throat, you may feel pain or tenderness in your throat when you swallow or talk. Many things can cause a sore throat, including: ??? An infection. ??? Seasonal allergies. ??? Dryness in the air. ??? Irritants, such as smoke or pollution. ??? Radiation treatment for cancer. ??? Gastroesophageal reflux disease (GERD). ??? A tumor. A sore throat is often the first sign of another sickness. It may happen with other symptoms, such as coughing, sneezing, fever, and swollen neck glands. Most sore throats go away without medical treatment. Follow these instructions at home: Medicines ??? Take zbch-kao-xetwlpo and prescription medicines only as told by your health care provider. ??? Children often get sore throats. Do not give your child aspirin because of the association withReye's syndrome. ??? Use throat sprays to soothe your throat as told by your health care provider. Managing pain To help with pain, try: ??? Sipping warm liquids, such as broth, herbal tea, or warm water. ??? Eating or drinking cold or frozen liquids, such as frozen ice pops. ??? Gargling with a mixture of salt and water 3???4 times a day or as needed. To make salt water, completely dissolve ?1 tsp (3???6 g) of salt in 1 cup (237 mL) of warm water. ??? Sucking on hard candy or throat lozenges. ??? Putting a cool-mist humidifier in your bedroom at night to moisten the air. ??? Sitting in the bathroom with the door closed for 5???10 minutes while you run hot water in the shower. General instructions ??? Do not use any products that contain nicotine or tobacco. These products include cigarettes, chewing tobacco, and vaping devices, such as e-cigarettes. If you need help quitting, ask your health care provider. ??? Rest as needed. ??? Drink enough fluid to keep your urine pale yellow. ??? Wash your hands often with soap and water for at least 20 seconds. If soap and water are not available, use hand taper printed circuit layout. Contact a health care provider if: ??? You have a fever for more than 2???3 days. ??? You have symptoms that last for more than 2???3 days. ??? Your throat does not get better within 7 days. ??? You have a fever and your symptoms suddenly get worse. Get help right away if: ??? You have difficulty breathing. ??? You cannot swallow fluids, soft foods, or your saliva. ??? You have increased swelling in your throat or neck. ??? You have persistent nausea and vomiting. These symptoms may represent a serious problem that is an emergency. Do not wait to see if the symptoms will go away. Get medical help right away. Call your local emergency services (911 in the [place] Do not drive yourself to the hospital. Summary ??? A sore throat is pain, burning, irritation, or scratchiness in the throat. Many things can cause a sore throat. ??? Take mumd-nsu-uqpxqad medicines only as told by your health care provider. ??? Rest as needed. ??? Drink enough fluid to keep your urine pale yellow. ??? Contact a health care provider if your throat does not get better within 7 days. This information is not intended to replace advice given to you by your health care provider. Make sure you discuss any questions you have with your health care provider. Document Revised: 06/02/2021 Document Reviewed: 06/02/2021 [employer] Patient Education ?? 2022 [employer] 02/07/2024 22:33:55 Rapid Strep Test Rapid Strep Test Why am I having this test? A rapid strep test is used to check for strep throat. Strep throat is a bacterial infection caused by the bacteria Streptococcus pyogenes. A rapid strep test is the quickest way to check if these bacteria are causing your sore throat. You may have this test if: ??? You have throat pain or neck swelling and tenderness. ??? You have a fever. ??? You have a red throat with yellow or white spots. ??? You experience loss of appetite. ??? You have trouble breathing or painful swallowing. ??? You have a rash. ??? You are dehydrated. The test can be done at your health care provider's office. Results are usually ready in about 20 minutes. What is being tested? This test checks for the presence of the Streptococcus pyogenes bacteria. What kind of sample is taken? This test requires a sample of fluid from the back of your throat and tonsils. Your health care provider may hold down your tongue with a tongue depressor and use a swab to collect the sample. Your health care provider may collect a second sample at the same time. The second sample may be used for a throat culture. ??? In a culture test, the sample is combined with a substance that encourages bacteria to grow. Ittakes longer to get the results of the throat culture test, but they are more accurate. ??? A culture test can confirm the results from a rapid strep test, or it may show that the resultswere wrong. How are the results reported? Your test results will be reported as either positive or negative for the bacteria that cause strepthroat. What do the results mean? Talk with your health care provider about what your results mean. In some cases, your health care provider may do more testing to confirm the results. If the result of your rapid strep test is negative, it means that: ??? It is likely that you do not have strep throat. ??? A virus may be causing your sore throat. If the result of your rapid strep test is positive, it means that: ??? It is likely that you do have strep throat. ??? You may have to take antibiotic medicine. Talk with your health care provider about what your results mean. Your health care provider may do a throat culture to confirm the results of the rapid strep test. ??? The throat culture can also identify the different strains of bacteria that are present. Questions to ask your health care provider Ask your health care provider, or the department that is doing the test: ??? When will my results be ready? How will I get my results? What are my treatment options? What other tests do I need? What are my next steps? Summary ??? A rapid strep test is used to check for strep throat. Strep throat is a bacterial infection caused by the bacteria Streptococcus pyogenes. A rapid strep test is the quickest way to check if thesebacteria are causing your sore throat. ??? The test can be done at your health care provider's office. Results are usually ready in about 20 minutes. ??? This test requires a sample of fluid from the back of your throat and tonsils. Your health careprovider may hold down your tongue with a tongue depressor and use a swab to collect the sample. ??? Your test results will be reported as either positive or negative for the bacteria that cause strep throat. This information is not intended to replace advice given to you by your health care provider. Make sure you discuss any questions you have with your health care provider. Document Revised: 06/29/2021 Document Reviewed: 06/29/2021 [employer] Patient Education ?? 2022 [employer]. 02/07/2024 22:33:55 Managing Pain Without Opioids Managing Pain Without Opioids Opioids are strong medicines used to treat moderate to severe pain. For some people, especially those who have long-term (chronic) pain, opioids may not be the best choice for pain management due to: ??? Side effects like nausea, constipation, and sleepiness. ??? The risk of addiction (opioid use disorder). The longer you take opioids, the greater your riskof addiction. Pain that lasts for more than 3 months is called chronic pain. Managing chronic pain usually requires more than one approach and is often provided by a team of health care providers working together (multidisciplinary approach). Pain management may be done at a pain management center or pain clinic. How to manage pain without the use of opioids Use non-opioid medicines Non-opioid medicines for pain may include: ??? Lwpi-zkb-vmmyslt or prescription non-steroidal anti-inflammatory drugs (NSAIDs). These may be the first medicines used for pain. They work well for muscle and bone pain, and they reduce swelling. ??? Acetaminophen. This mmbo-iza-lpzmulb medicine may work well for milder pain but not swelling. ??? Antidepressants. These may be used to treat chronic pain. A certain type of antidepressant (tricyclics) is often used. These medicines are given in lower doses for pain than when used for depression. ??? Anticonvulsants. These are usually used to treat seizures but may also reduce nerve (neuropathic) pain. ??? Muscle relaxants. These relieve pain caused by sudden muscle tightening (spasms). You may also use a pain medicine that is applied to the skin as a patch, cream, or gel (topical analgesic), such as a numbing medicine. These may cause fewer side effects than medicines taken by mouth. Do certain therapies as directed Some therapies can help with pain management. They include: ??? Physical therapy. You will do exercises to gain strength and flexibility. A physical therapist may teach you exercises to move and stretch parts of your body that are weak, stiff, or painful. Youcan learn these exercises at physical therapy visits and practice them at home. Physical therapy may also involve: ??? Massage. ??? Heat wraps or applying heat or cold to affected areas. ??? Electrical signals that interrupt pain signals (transcutaneous electrical nerve stimulation, TENS). ??? Weak lasers that reduce pain and swelling (low-level laser therapy). ??? Signals from your body that help you learn to regulate pain (biofeedback). ??? Occupational therapy. This helps you to learn ways to function at home and work with less pain. ??? Recreational therapy. This involves trying new activities or hobbies, such as a physical activity or drawing. ??? Mental health therapy, including: ??? Cognitive behavioral therapy (CBT). This helps you learn coping skills for dealing with pain. ??? Acceptance and commitment therapy (ACT) to change the way you think and react to pain. ??? Relaxation therapies, including muscle relaxation exercises and mindfulness- based stress reduction. ??? Pain management counseling. This may be individual, family, or group counseling. Receive medical treatments Medical treatments for pain management include: ??? Nerve block injections. These may include a pain jyotsna and anti- inflammatory medicines. You may have injections: ??? Near the spine to relieve chronic back or neck pain. ??? Into joints to relieve back or joint pain. ??? Into nerve areas that supply a painful area to relieve body pain. ??? Into muscles (trigger point injections) to relieve some painful muscle conditions. ??? A veterinary medical officer placed near your spine to help block pain signals and relieve nerve pain or chronic back pain (spinal cord stimulation device). ??? Acupuncture. Follow these instructions at home Medicines ??? Take dskn-qor-mlbggdt and prescription medicines only as told by your health care provider. ??? If you are taking pain medicine, ask your health care providers about possible side effects to watch out for. ??? Do not drive or use heavy machinery while taking prescription opioid pain medicine. Lifestyle ??? Do not use drugs or alcohol to reduce pain. If you drink alcohol, limit how much you have to: ??? 0???1 drink a day for women who are not . ??? 0???2 drinks a day for men. ??? Know how much alcohol is in a drink. In the [place] one drink equals one 12 oz bottle of beer (355 mL), one 5 oz glass of wine (148 mL), or one 1?? oz glass of hard liquor (44 mL). ??? Do not use any products that contain nicotine or tobacco. These products include cigarettes, chewing tobacco, and vaping devices, such as e-cigarettes. If you need help quitting, ask your health care provider. ??? Eat a healthy diet and maintain a healthy weight. Poor diet and excess weight may make pain worse. ??? Eat foods that are high in fiber. These include fresh fruits and vegetables, whole grains, and beans. ??? Limit foods that are high in fat and processed sugars, such as fried and sweet foods. ??? Exercise regularly. Exercise lowers stress and may help relieve pain. ??? Ask your health care provider what activities and exercises are safe for you. ??? If your health care provider approves, join an exercise class that combines movement and stressreduction. Examples include yoga and krista chi. ??? Get enough sleep. Lack of sleep may make pain worse. ??? Lower stress as much as possible. Practice stress reduction techniques as told by your therapist. General instructions ??? Work with all your pain management providers to find the treatments that work best for you. Youare an important member of your pain management team. There are many things you can do to reduce pain on your own. ??? Consider joining an online or in-person support group for people who have chronic pain. ??? Keep all follow-up visits. This is important. Where to find more information You can find more information about managing pain without opioids from: ??? [employer]: painmed.org ??? [employer]: instituteforchronicpain.org ??? [place] [employer] Association: theacpa.org Contact a health care provider if: ??? You have side effects from pain medicine. ??? Your pain gets worse or does not get better with treatments or home therapy. ??? You are struggling with anxiety or depression. Summary ??? Many types of pain can be managed without opioids. Chronic pain may respond better to pain management without opioids. ??? Pain is best managed when you and a team of health care providers work together. ??? Pain management without opioids may include non-opioid medicines, medical treatments, physical therapy, mental health therapy, and lifestyle changes. ??? Tell your health care providers if your pain gets worse or is not being managed well enough. This information is not intended to replace advice given to you by your health care provider. Make sure you discuss any questions you have with your health care provider. Document Revised: 06/16/2021 Document Reviewed: 06/16/2021 [employer] Patient Education ?? 2022 [employer]. 02/07/2024 22:33:55 Migraine Headache, Zxfj-to-Xubb Migraine Headache A migraine headache is a [...] these instructions at home: Medicines ??? Take uhbc-hrc-yvltigz and prescription medicines only as told by your doctor. ??? Ask your doctor if the medicine prescribed to you: ??? Requires you to avoid driving or using heavy machinery. ??? Can cause trouble pooping (constipation). You may need to take these steps to prevent or treat trouble pooping: ??? Drink enough fluid to keep your pee (urine) pale yellow. ??? Take zzde-cbt-ywowlbu or prescription medicines. ??? Eat foods that [...] Reviewed: 04/18/2019 [employer] Patient Education ?? 2022 [employer]. Follow Up Care 02/07/2024 21:29:44 With:Follow up with primary care provider Address:Unknown When:1 to 2 days Physician Emergency department Note * Lucinda Lawrence MD: PERFORM, MODIFY Event Display: ED Note Physician Authored Date: [id number] MISHA JACKSON :1980 Age:43 years Sex:Female Visit Date:02/07/2024 Primary Care Physician: Hermes Ramirez MD Basic Information Time Seen: Lucinda Lawrence MD / 02/07/2024 21:30 History Of Present Illness: Patient is 43-year-old??white female, who??comes to ER??very frequently and is well-known to ER staff??for frequent ER visits??asking for narcotics??like morphine and Dilaudid??for different kind of pains. She comes to ER tonight??for burning pain in the throat,??teeth and ears are also hurting, migraineheadache.?? She also is complaining of ongoing bilateral shoulder pains.?? I have reviewed her??longest??list of medical issues, past medical history.?? Again,??tonight she is asking for??morphine orDilaudid. Review of Systems: Constitutional:?No??fevers,?No??chills,?No??sweats Eye:?No??recent visual problems ENT:?Positive for??ear pain,?No??nasal congestion,?Positive for??sore throat Respiratory:?No??shortness of breath,?No??cough Cardiovascular:?No??Chest pain,?No??palpitations,?No??syncope Gastrointestinal:?Nonausea,?No??vomiting,?No??diarrhea Genitourinary:?No??hematuria Clemente/Lymph:?No??bruising tendency,?No??swollen lymph glands Endocrine:?No??excessive thirst,??No??excessive hunger Musculoskeletal:??Positive for??back pain,??No??neck pain,??No??joint pain,??No??muscle pain,??No??decreased range of motion Integumentary:?No??rash,?No??pruritus,?No??abrasions Neurologic: Alert & oriented X 4, has headache Psychiatric:?No??anxiety,?No??depression Physical Exam Vitals & Measurements T:??36.6?C ??(Oral)?? HR:??72??(Peripheral)?? RR:??18?? BP:??141/88?? SpO2:??100%?? HT:??157.48??cm?? WT:??92.44??kg?? BMI:??37.27?? Pain Score:??8?? O2 Therapy:??Room air?? General: Alert and oriented, well nourished,?No??acute distress Eye: PERRL, EOMI,?Normal?conjunctiva HENT: Normocephalic, clear tympanic membranes,??patient has??tympanostomy??tubes in both TMs, normal? hearing, moist oral mucosa,?No??scleral icterus,?No??sinus tenderness ,??pharynx is not congested, tonsils are not hypertrophied and not erythematous Neck: Supple, non-tender,?No??carotid bruits,?No??JVD,?No??lymphadenopathy Lungs:??Clear to auscultation?? Respiration:??Non-Labored Heart:?Normal? rate,?Regular??rhythm,?No??murmur,?No??gallop,?No??edema Abdomen: Soft, non-tender, non-distended,?Normal? bowel sounds,?No??masses Musculoskeletal:?Normal? range of motion and strength,? Skin: Skin is warm, dry and pink,?No??rashes,?No??lesions Neurologic: Awake, alert and oriented X4, CN II-XII intact Psychiatric: Cooperative, appropriate mood and affect, Medical Decision Making: Chronic pain syndrome,??narcotic seeking behavior Will do strep screen Procedure No Qualifying Data Reexamination/Reevaluation Phenergan 25 mg IM Benadryl 50 mg IM Morphine 2 mg IM Strep test came back negative Assessment/Plan Chronic pain syndrome??G89.4 Headache, common migraine??G43.009 Pharyngitis??J02.9 Nonstreptococcal??pharyngitis Orders: morphine, 2 mg = 1 mL, Intramuscular, Injection, Once, First Dose: 02/07/24 22:28:00 SUPERVISOR BRIAR SHOP, Stop Date: 02/07/24 22:28:00 SUPERVISOR BRIAR SHOP, Physician Stop, STAT Patient Discharge Condition Stable Discharge Disposition Home with family Patient Education Sore Throat Rapid Strep Test Managing Pain Without Opioids Migraine Headache, Iges-kf-Vggq Follow Up With When Contact Information Follow up with primary care provider Within 1 to 2 days Additional Instructions: Follow-up with primary care physician??tomorrow,??if not better Medication Reconciliation Unchanged amLODIPine (amLODIPine 5 mg [...] transplant Medication Administration Given Benadryl, 50 mg, Intramuscular Phenergan, 25 mg, Intramuscular Allergies NSAIDs Toradol??(Kidney failure as a complication of care) aspirin??(Medication interaction) azithromycin??(Unknown) codeine??(Unknown, Itching) gentamicin morphine??(redness, Itching) erythromycin??(Medication interaction) Social History Alcohol Never Electronic Cigarette/Vaping Electronic Cigarette Use: Never. Substance Use Never Tobacco Current everyday tobacco user Tobacco Use:.- Comments: Pt states that she smokes half a pack a day. Family History Cancer: Mother. Lab Results Infectious Disease?? LATEST RESULTS?? HISTORICAL RESULTS?? Streptococcus A?? 02/07/24 22:17?? Negative?? 03/05/23?? Positive Abnormal? Electronically Signed on 02/07/2024 22:36 SUPERVISOR BRIAR SHOP Lucinda Lawrence MD Patient Care team information Care Team Personnel Name: Jessee Jones WELLNESS CONSULTANT Position: Physician Member Role: Nurse Practitioner Address: [address] [facility], [address] [place], [place] [address]- Name: Latoya Marquez WELLNESS CONSULTANT Position: Physician Member Role: Nurse Practitioner Address: [address] [facility], [place] [address]- Name: Leonila Gonzalez WELLNESS CONSULTANT Position: Physician Member Role: Nurse Practitioner Address: [address] [facility], [place] [address]- Name: Beth Brandt WELLNESS CONSULTANT Position: Physician Member Role: Nurse Practitioner Address: [address] [facility], [place] [id number] [place] Name: Hermes Ramirez MD Position: Physician Member Role: Informed Provider Address: [address] [facility], [address] [place], [place] [address]- Name: Pillo Moe WELLNESS CONSULTANT Position: Physician Member Role: Nurse Practitioner Address: [address] [facility], [address] [place], [facility] Care Team Related Persons Name: STACIA JONES Name: ROBYN JAMA Name: NAIF CHOI Name: MADY CHEN Name: MADY CHEN Insurance Providers Guarantor name: MISHA JACKSON Health Plan Information #: 1 Payer: [employer] Member Number: [id number] Policy Number: NA Health Plan Information #: 2 Payer: FIN[employer]CIAL [employer]ISTANCE APPROVED Member Number: [id number] Policy Number: Health Plan Information #: 3 Payer: MISC Workers Comp Member Number: NA Policy Number: NA
--- OUTSIDE RECORDS SUMMARY | 2024-03-20 11:35 | XMS_ITS | Continuity of Care Document ---
Author Organization Formerly [facility], [facility] Address [address] [place] [address] Care Team Providers Care Caramel Maker Name Role Phone Hermes Ramirez Primary Care Physician Encounter ONOFRE MARILUZ [id number] Date(s): 11/30/21 - 11/30/[address] [address] Encounter Diagnosis Otitis externa, fungal(Discharge Diagnosis) - 11/30/21 Otitis externa in other diseases classified elsewhere, unspecified ear(Discharge Diagnosis) - 11/30/21 Discharge Disposition: Home or Self Care Attending Physician: Mike Malik MD Admitting Physician: Mike Malik MD Allergies, Adverse Reactions, Alerts Substance Reaction Severity Status codeine Unknown Itching Severe Active gentamicin Moderate Active erythromycin Medication interaction Activ e azithromycin Unknown Severe Active aspirin Medication interaction Severe Activ e Toradol Kidney failure as a complication of care Severe Active NSAIDs Severe Active Assessment and Plan Future Appointments Functional Status 11/30/21 Family Member Travel History No recent t [...] wheezing, # 6.7 g, 0 Refill(s), Pharmacy: [place], [place], 73, cm, 09/13/21 23:53:00 CDT, Height/Length [...] needed, # 12 cap, 0 Refill(s), Pharmacy: [place], [place], 157, cm, 11/04/21 20:02:00 CDT, Height/Length Dosing, 73, kg, 11/04/21 20:02:00 CDT, Weight Dosing Start Date: 11/04/21 Status: Ordered cefaclor 500 mg oral tablet, extended release 500 mg = 1 tab, Oral, BID, # 20 tab, 0 Refill(s), Pharmacy: [place], [place], [address], cm, 11/18/21 23:46:00 CDT, Height/Length Dosing, 73, kg, 11/18/21 23:46:00 CDT, Weight Dosing Start Date: 11/19/21 Stop Date: 11/29/21 Status: Ordered Fioricet with Codeine 50 mg-300 mg-40 mg-30 mg oral capsule 1 cap, Oral, every 4 hr, PRN as needed, # 12 cap, 0 Refill(s), Pharmacy: [place], [place], [address], cm, 11/29/21 8:04:00 CDT, Height/Length [...] BID, # 180 tab, 3 Refill(s), Pharmacy: [place], [place], [address], cm, 10/22/20 21:26:00 CDT, Height/Length Dosing, 74, kg, 10/22/20 21:26:00 CDT, Weight Dosing Start Date: 12/18/20 Status: Ordered morphine 4 mg/mL preservative-free injectable solution 4 mg = 1 mL, IM, Once, 0 Refill(s) Start Date: 11/25/21 Status: Ordered ondansetron 4 mg oral tablet, disintegrating 4 mg = 1 tab, Oral, every 6 hr, PRN nausea/vomiting, # 12 tab, 0 Refill(s), Pharmacy: [place], [place], [address], cm, 11/04/21 20:02:00 CDT, Height/Length [...] nausea/vomiting, # 20 tab, 0 Refill(s), Pharmacy: [place], [address], cm, 09/29/21 23:03:00 CDT, Height/Length [...] Oral [35.8-37.3 Deg C] 37.1 Deg C (11/30/21 7:53 PM) Peripheral Pulse Rate [60-100 bpm] 108 b pm *HI* (11/30/21 7:53 PM) Respiratory Rate [12-24 br/min] 18 br/mi n (11/30/21 7:53 PM) Blood Pressure [90-140/60-90 mmHg] 138/8 4mmHg (11/30/21 7:53 PM) Weight 72.57 kg (11/30/21 7:53 PM) Weight Dosing 72.57 kg (11/30/21 8:01 PM) Height 157.480 cm (11/30/21 7:53 PM) Height/Length Dosing 157.480 cm (11/30/21 8:01 PM) Social History Social History Type Response Tobacco Current everyday tob acco user Tobacco Use:. Sex Hospital Discharge Instructions Patient Education 11/30/2021 20:43:43 Otitis Externa Otitis Externa Otitis externa is [...] you start to feel better. ??? Take epcs-nzy-woqnafu and prescription medicines only as told by [...] provider. Document Revised: 05/19/2021 Document Reviewed: 05/19/2021 Elsevier Patient Education ?? 2021 [employer] Follow Up Care 11/30/2021 19:53:02 With:Hermes Ramirez MD Address: [address] [place] [address], [address] [place] [address]- When:1 month Patient Care team information Personnel Name: Hermes Ramirez MD Address: Address: [address] [place] [address], [address]
--- OUTSIDE RECORDS SUMMARY | 2024-03-20 11:35 | XMS_ITS | Continuity of Care Document ---
Author Organization [facility] Address [address] [place] [address] Care Team Providers Care Pipe Fitter Welding Name Role Phone Hermes Ramirez Primary Care Physician Encounter ONOFRE [facility] [id number] Date(s): 08/03/23 - 08/03/[address] [address] Encounter Diagnosis Chronic back pain(Discharge Diagnosis) - 08/03/23 Other chronic pain(Discharge Diagnosis) - 08/03/23 Discharge Disposition: Home or Self Care Attending Physician: Mauricio Limon MD Admitting Physician: Mauricio Limon MD Allergies, Adverse Reactions, Alerts Substance Reaction [...] and Plan Extracted from: Title:ED Provider Note Author:Mauricio Limon MD Date:08/03/23 Assessment/Plan Chronic back pain??M54.9 Other chronic pain??G89.29 Orders: diphenhydrAMINE, 25 mg = 0.5 mL, Intramuscular, Injection, Once, First Dose: 08/03/23 21:56:00 CDT, Stop Date: 08/03/23 21:56:00 CDT, Physician Stop, STAT morphine, 4 mg = 1 mL, Intramuscular, Injection, Once, First Dose: 08/03/23 22:00:00 CDT, Stop Date: 08/03/23 22:00:00 CDT, Physician Stop, Routine Patient Discharge Condition Patient will be discharged home Discharge Disposition Stable condition Patient Education Arthritis Patient instructed to continue home medication and follow-up in the clinic. Follow Up With When Contact Information Follow up with primary care provider Within 5 to 7 days Additional Instructions: Future Appointments Future Scheduled [...] Daily, # 30 tab, 11 Refill(s), Pharmacy: [place], [place], [address], cm, 01/04/23 15:03:00 CDT, Height/Length Dosing, 81.65, kg, 01/04/23 15:03:00 CDT, Weight Dosing Start Date: 01/11/23 Status: Ordered aspirin 81 mg oral delayed release tablet 81 mg = 1 tab, Oral, Daily, # 30 tab, 0 Refill(s) Start Date: 04/05/21 Status: Ordered gabapentin 300 mg oral capsule 600 mg = 2 cap, Oral, BID, # 120 cap, 2 Refill(s), Pharmacy: [id number] [place], 157.48, cm, 07/23/23 17:59:00 CDT, Height, 88.45, [...] BID, # 60 cap, 11 Refill(s), Pharmacy: [place], [place], [address], cm, 01/04/23 15:03:00 CDT, Height/Length Dosing, 81.65, kg, 01/04/23 15:03:00 CDT, Weight Dosing Start Date: 01/11/23 Status: Ordered pantoprazole 40 mg oral delayed release tablet 1 tab, Oral, Daily, # 90 tab, 0 Refill(s), Pharmacy: [id number], 157.48, cm, 06/07/23 16:07:00 CDT, Height, 89.36, [...] QID, # 360 tab, 0 Refill(s), Pharmacy: [id number], 157.48, cm, 06/07/23 16:07:00 CDT, Height, 89.36, [...] Oral [35.8-37.3 Deg C] 36.8 Deg C (08/03/23 10:08 PM) 36.7 Deg C (08/03/23 9:23 PM) Peripheral Pulse Rate [60-100 bpm] 72 bp m (08/03/23 10:08 PM) Heart Rate Monitored [60-100 bpm] 76 bpm (08/03/23 9:23 PM) Respiratory Rate [12-24 br/min] 18 br/mi n (08/03/23 10:08 PM) 18 br/min (08/03/23 9:23 PM) Blood Pressure [90-140/60-90 mmHg] 161/8 9mmHg *HI* (08/03/23 10:08 PM) 171/98mmHg *HI* (08/03/23 9:23 PM) Mean Arterial Pressure, Cuff [65-140 mmH g] 122 mmHg (08/03/23 9:23 PM) Weight Estimated 81.65 kg (08/03/23 9:23 PM) Body Mass Index Estimated 32.92 kg/m2 (08/03/23 9:23 PM) Height/Length Estimated 157.48 cm (08/03/23 9:23 PM) Social History Social History Type Response Tobacco Current everyday tob acco user Tobacco Use:. Sex Hospital Discharge Instructions Patient Education 08/03/2023 21:57:56 Arthritis Arthritis Arthritis is a term that is commonly used to refer to joint pain or joint disease. There are more than 100 types of arthritis. What are the causes? The most common cause of this condition is wear and tear of a joint. Other causes include: ??? Gout. ??? Inflammation of a joint. ??? An infection of a joint. ??? Sprains and other injuries near the joint. ??? A reaction to medicines or drugs, or an allergic reaction. In some cases, the cause may not be known. What are the signs or symptoms? The main symptom of this condition is pain in the joint during movement. Other symptoms include: ??? Redness, swelling, or stiffness at a joint. ??? Warmth coming from the joint. ??? Fever. ??? Overall feeling of illness. How is this diagnosed? This condition may be diagnosed with a physical exam and tests, including: ??? Blood tests. ??? Urine tests. ??? Imaging tests, such as X-rays, an MRI, or a CT scan. Sometimes, fluid is removed from a joint for testing. How is this treated? This condition may be treated with: ??? Treatment of the cause, if it is known. ??? Rest. ??? Raising (elevating) the joint. ??? Applying cold or hot packs to the joint. ??? Medicines to improve symptoms and reduce inflammation. ??? Injections of a steroid, such as cortisone, into the joint to help reduce pain and inflammation. Depending on the cause of your arthritis, you may need to make lifestyle changes to reduce stress on your joint. Changes may include: ??? Exercising more. ??? Losing weight. Follow these instructions at home: Medicines ??? Take jeih-yoo-gkcraml and prescription medicines only as told by your health care provider. ??? Do not take aspirin to relieve pain if your health care provider thinks that gout may be causing your pain. Activity ??? Rest your joint if told by your health care provider. Rest is important when your disease is active and your joint feels painful, swollen, or stiff. ??? Avoid activities that make the pain worse. Balance activity with rest. ??? Exercise your joint regularly with xhquk-hd-djtrak exercises as told by your health care provider. Try doing low-impact exercise, such as: ??? Swimming. ??? Water aerobics. ??? Biking. ??? Walking. Managing pain, stiffness, and swelling ??? If directed, put ice on the affected joint. To do this: ??? Put ice in a plastic bag. ??? Place a towel between your skin and the bag. ??? Leave the ice on for 20 minutes, 2???3 times a day. ??? Remove the ice if your skin turns bright red. This is very important. If you cannot feel pain, heat, or cold, you have a greater risk of damage to the area. ??? If your joint is swollen, raise (elevate) it above the level of your heart if directed by your health care provider. ??? If your joint feels stiff in the morning, try taking a warm shower. ??? If directed, apply heat to the affected area as often as told by your health care provider. Usethe heat source that your health care provider recommends, such as a moist heat pack or a heating pad. To apply heat: ??? Place a towel between your skin and the heat source. ??? Leave the heat on for 20???30 minutes. ??? Remove the heat if your skin turns bright red. This is especially important if you are unable to feel pain, heat, or cold. You have a greater risk of getting burned. General instructions ??? Maintain a healthy weight. Follow instructions from your health care provider for weight control. ??? Do not use any products that contain nicotine or tobacco. These products include cigarettes, chewing tobacco, and vaping devices, such as e-cigarettes. If you need help quitting, ask your health care provider. ??? Keep all follow-up visits. This is important. Where to find more information ??? National Institutes of Health: www.niams.nih.gov Contact a health care provider if: ??? The pain gets worse. ??? You have a fever. Get help right away if: ??? You develop severe joint pain, swelling, or redness. ??? Many joints become painful and swollen. ??? You develop severe back pain. ??? You develop severe weakness in your leg. Summary ??? Arthritis is a term that is commonly used to refer to joint pain or joint disease. There are more than 100 types of arthritis. ??? The most common cause of this condition is wear and tear of a joint. Other causes include gout,inflammation or infection of the joint, sprains, or allergies. ??? Symptoms of this condition include redness, swelling, or stiffness of the joint. Other symptomsinclude warmth, fever, or feeling ill. ??? This condition is treated with rest, elevation, medicines, and applying cold or hot packs. ??? Follow your health care provider's instructions about medicines, activity, exercises, and otherhome care treatments. This information is not intended to replace advice given to you by your health care provider. Make sure you discuss any questions you have with your health care provider. Document Revised: 12/14/2021 Document Reviewed: 12/14/2021 [employer] Patient Education ?? 2022 [employer]. Follow Up Care 08/03/2023 21:15:10 With:Follow up with primary care provider Address:Unknown When:5 to 7 days Physician Emergency department Note * Mauricio Limon MD: MODIFY, PERFORM Event Display: ED Note Physician Authored Date: [id number] MISHA JACKSON :1980 Age:42 years Sex:Female Visit Date:08/03/2023 Primary Care Physician: Hermes Ramirez MD Basic Information Time Seen: Mauricio Limon MD / 08/03/2023 21:39 Chief Complaint Pt. presents to the ED with c/o R sided hip and back pain. Pt. states had MRI done on the and states pain management will not see pt. until after completion of PT. History Of Present Illness: This patient 42 years old female with history of liver transplant history of kidney transplant. ??History of chronic back pain. ??Was here recently in the clinic.. ?? She did have MRI of her lumbar and thoracic spine. ??She did have some lab workup.. ?? She came today complaining of chronic back pain.?? She denies fall or injury.?? She denies chestpain or neck pain denies abdominal pain. ??Denies urination problem. ??Has normal??sensation to herlower extremity.. Review of Systems: Review of system is negative. Physical Exam Vitals & Measurements T:??36.7?C ??(Oral)?? HR:??76??(Monitored)?? RR:??18?? BP:??171/98?? SpO2:??99%?? HT:??157.48??cm?? WT:??81.65??kg??(Estimated)?? BMI:??32.92?? Pain Score:??8?? O2 Therapy:??Room air?? General: [Alert and oriented, well nourished, no acute distress].?? Eye: [PERRL, EOMI, normal conjunctiva]. HENT: [Normocephalic, ??normal hearing, moist oral mucosa, no scleral icterus, no sinus tenderness].?? Neck: [Supple, non-tender, no carotid bruits, no JVD, no lymphadenopathy].?? Lungs: [Clear to auscultation and percussion, non-labored respiration].?? Heart: [Normal rate, regular rhythm, no murmur, gallop or edema]. Abdomen: [Soft, non-tender, non-distended, normal bowel sounds, no masses].?? Musculoskeletal: [Normal range of motion and strength, some thoracic and lumbar spine tenderness. Skin: [Skin is warm, dry and pink, no rashes or lesions]. Neurologic: [Awake, alert and oriented X4, CN I-XII intact]. Psychiatric: [Cooperative, appropriate mood and affect]. Medical Decision Making: This patient with exacerbation of chronic back pain. ??Will give her 4 mg of morphine??IM and Benadryl 25 for itching patient??patient will be discharged home. ??Instructed to continue home medication and follow-up in the clinic. ?? Procedure No Qualifying Data Assessment/Plan Chronic back pain??M54.9 Other chronic pain??G89.29 Orders: diphenhydrAMINE, 25 mg = 0.5 mL, Intramuscular, Injection, Once, First Dose: 08/03/23 21:56:00 CDT,Stop Date: 08/03/23 21:56:00 CDT, Physician Stop, STAT morphine, 4 mg = 1 mL, Intramuscular, Injection, Once, First Dose: 08/03/23 22:00:00 CDT, Stop Date: 08/03/23 22:00:00 CDT, Physician Stop, Routine Patient Discharge Condition Patient will be discharged home Discharge Disposition Stable condition Patient Education Arthritis Patient instructed to continue home medication and follow-up in the clinic. Follow Up With When Contact Information Follow up with primary care provider Within 5 to 7 days Additional Instructions: Medication Reconciliation Unchanged amLODIPine (amLODIPine 5 mg [...] Liver transplantation (05/08/2020)???Mammogram (2020)??? delivery???cyst removal from [facility]???Hernia???liver transplant Allergies NSAIDs Toradol??(Kidney failure as a complication of care) aspirin??(Medication interaction) azithromycin??(Unknown) codeine??(Unknown, Itching) gentamicin morphine??(redness, Itching) erythromycin??(Medication interaction) Social History Alcohol Never Electronic Cigarette/Vaping Electronic Cigarette Use: Never. Substance Use Never Tobacco Current everyday tobacco user Tobacco Use:.- Comments: Pt states that she smokes half a pack a day. Family History Cancer: Mother. Electronically Signed on 08/03/23 09:58 PM Mauricio Limon MD Patient Care team information Care Team Personnel Name: Jessee Jones ADMINISTRATIVE ACCOUNTANT Position: Physician Member Role: Nurse Practitioner Address: Address: [address] [facility], [address] [place] [address]- Name: Latoya Maqruez ADMINISTRATIVE ACCOUNTANT Position: Physician Member Role: Nurse Practitioner Address: Address: [address] [place] [address]- Name: Leonila Gonzalez ADMINISTRATIVE ACCOUNTANT Position: Physician Member Role: Nurse Practitioner Address: Address: [address] [place] [address]- Name: Beth Brandt ADMINISTRATIVE ACCOUNTANT Position: Physician Member Role: Nurse Practitioner Address: Address: [address] [place] [address] [place] [address] Name: Hermes Ramirez MD Position: Physician Member Role: Informed Provider Address: Address: [address] [facility], [address] [place] [address]- Name: Pillo Moe ADMINISTRATIVE ACCOUNTANT Position: Physician Member Role: Nurse Practitioner Address: Address: [address] [facility], [address] [facility] Care Team Related Persons Name: STACIA JONES Address: Home [address] [id number] Name: NAIF CHOI Name: MADY CHEN
--- OUTSIDE RECORDS SUMMARY | 2024-03-20 11:35 | XMS_ITS | Continuity of Care Document ---
Author Organization [facility] Address [address] [place] [address]- Care Team Providers Care Stock Tracer Name Role Phone Ashley Hermes Chris Primary Care Physician Encounter ONOFRE MCGRAW [id number] Date(s): 01/06/22 - 01/06/22 [facility] [address] [place] [address]- Encounter Diagnosis Cervicalgia(Discharge Diagnosis) - 01/06/22 Foraminal stenosis of cervical region(Discharge Diagnosis) - 01/06/22 Discharge Disposition: Home or Self Care Attending Physician: Pillo Moe PHONOGRAPH CARTRIDGE ASSEMBLER Allergies, Adverse Reactions, Alerts Substance Reaction Severity Status codeine Unknown Itching Severe Active gentamicin Moderate Active erythromycin Medication interaction Activ e azithromycin Unknown Severe Active aspirin Medication interaction Severe Activ e Toradol Kidney failure as a complication of care Severe Active NSAIDs Severe Active Assessment and Plan Future Scheduled Tests Radiology* MRI Spine Cervical w/o Contrast 01/06/22 Functional Status 01/06/22 Other exposure to Infectious Disease Non e [...] wheezing, # 6.7 g, 0 Refill(s), Pharmacy: [place], [place], 73, cm, 09/13/21 23:53:00 CDT, Height/Length [...] needed, # 12 cap, 0 Refill(s), Pharmacy: [place], [place], 157, cm, 11/04/21 20:02:00 CDT, Height/Length Dosing, 73, kg, 11/04/21 20:02:00 CDT, Weight Dosing Start Date: 11/04/21 Status: Ordered ciprofloxacin 500 mg oral tablet 500 mg = 1 tab, Oral, every 12 hr, # 14 tab, 0 Refill(s), Pharmacy: [id number], 157, cm, 01/01/22 18:29:00 CDT, Height/Length Dosing, 73, kg, 01/01/22 18:29:00 CDT, Weight Dosing Start Date: 01/01/22 Stop Date: 01/08/22 Status: Ordered clotrimazole 1% topical solution 3 drops, Topical, BID, TO RIGHT EAR, # 10 mL, 0 Refill(s) Start Date: 12/26/21 Status: Ordered gabapentin 300 mg oral capsule TAKE ONE CAPSULE AT BEDTIME Start Date: 12/18/20 Status: Ordered LORazepam 0.5 mg oral tablet TAKE ONE TABLET BY MOUTH DAILY NEEDED FOR ANXIETY Start Date: 12/18/20 Status: Ordered Metoprolol Tartrate 25 mg oral tablet 25 mg = 1 tab, Oral, BID, # 180 tab, 3 Refill(s), Pharmacy: [place], [place], [address], cm, 10/22/20 21:26:00 CDT, Height/Length Dosing, 74, kg, 10/22/20 21:26:00 CDT, Weight Dosing Start Date: 12/18/20 Status: Ordered ondansetron 4 mg oral tablet, disintegrating 4 mg = 1 tab, Oral, every 6 hr, PRN nausea/vomiting, # 12 tab, 0 Refill(s), Pharmacy: [place], [place], [address], cm, 11/04/21 20:02:00 CDT, Height/Length [...] nausea/vomiting, # 20 tab, 0 Refill(s), Pharmacy: [place], [place], [address], cm, 09/29/21 23:03:00 CDT, Height/Length [...] Bilateral conjunctivitis Confirmed Active Constipation Confirmed Active Difficulty sleeping Confirmed Active Rash [...] of finger Confirmed Active Thrombocytopenia Confirmed Active Itching of [...] [35.8-37.3 Deg C] 37 De g C (01/06/22 9:40 AM) Peripheral Pulse Rate [60-100 bpm] 81 bp m (01/06/22 9:40 AM) Respiratory Rate [12-24 br/min] 18 br/mi n (01/06/22 9:40 AM) Blood Pressure [90-140/60-90 mmHg] 118/7 2mmHg (01/06/22 9:40 AM) Weight 78.02 kg (01/06/22 9:40 AM) Weight Measured (lbs) 172.004 lb (01/06/22 9:40 AM) Social History Social History Type Response Tobacco Current some day tob acco user Tobacco Use:. Sex Patient Care team information Personnel Name: Hermes Ramirez MD Address: Address: [address] [place] [address], [address] [place] [address]
--- OUTSIDE RECORDS SUMMARY | 2024-03-20 11:35 | XMS_ITS | Continuity of Care Document ---
Author Organization [facility] Address [address] [place] [address] Care Team Providers Care Absorption And Adsorption Engineer Name Role Phone Hermes Ramirez Primary Care Physician [phone] Encounter ONOFRE MCGRAW [id number] Date(s): 11/12/21 - 11/12/[address] [address] Encounter Diagnosis Intractable migraine(Discharge Diagnosis) - 11/12/21 Otalgia, bilateral(Discharge Diagnosis) - 11/12/21 Discharge Disposition: Home or Self Care Attending [...] hepatitis A adult vaccine 10/09/17 Recorded Medications !-Augmentin 875 mg-125 mg oral tablet 1 tab, Oral, every 12 hr, # 14 tab, 0 Refill(s), Pharmacy: [facility] - [place], [place], [address], cm,11/04/21 20:02:00 CDT, Height/Length Dosing, 73, kg, 11/04/21 20:02:00 CDT, Weight Dosing Start Date: 11/12/21 Stop Date: 11/19/21 Status: Ordered albuterol 90 mcg/inh aerosol inhaler 1 puffs, Inhale, every 4 hr, PRN as needed for wheezing, # 6.7 g, 0 Refill(s), Pharmacy: [place], [place], [address], cm, 09/13/21 23:53:00 CDT, Height/Length [...] needed, # 12 cap, 0 Refill(s), Pharmacy: [place], [place], [address], cm, 11/04/21 20:02:00 CDT, Height/Length [...] BID, # 180 tab, 3 Refill(s), Pharmacy: [place], [place], [address], cm, 10/22/20 21:26:00 CDT, Height/Length Dosing, 74, kg, 10/22/20 21:26:00 CDT, Weight Dosing Start Date: 12/18/20 Status: Ordered morphine 4 mg = 1 mL, IM, Injection, Once, First Dose: 11/12/21 21:50:00 CDT, Stop Date: 11/12/21 21:50:00 CDT, Physician Stop Start Date: 11/12/21 Stop Date: 11/12/21 Status: Completed ondansetron 4 mg oral tablet, disintegrating 4 mg = 1 tab, Oral, every 6 hr, PRN nausea/vomiting, # 12 tab, 0 Refill(s), Pharmacy: [place], [place], [address], cm, 11/04/21 20:02:00 CDT, Height/Length [...] nausea/vomiting, # 20 tab, 0 Refill(s), Pharmacy: [place], [place], [address], cm, 09/29/21 23:03:00 CDT, Height/Length [...] 1 2 Temperature Oral [35.8-37.3 Deg C] 37.3 Deg C (11/12/21 9:45 PM) Peripheral Pulse Rate [60-100 bpm] 106 b pm *HI* (11/12/21 9:45 PM) Respiratory Rate [12-24 br/min] 18 br/mi n (11/12/21 10:13 PM) 18 br/min (11/12/21 9:45 PM) Blood Pressure [90-140/60-90 mmHg] 143/9 3mmHg *HI* (11/12/21 9:45 PM) Weight Dosing 72.57 kg (11/12/21 9:55 PM) Weight Estimated 72.57 kg (11/12/21 9:45 PM) Height/Length Dosing 157.000 cm (11/12/21 9:55 PM) Height/Length Estimated 157.000 cm (11/12/21 9:45 PM) Social History Social History Type Response Smoking Status 5-9 cigarettes (betw een 1/4 to 1/2 pack)/day in last 30 days entered on: 05/12/21 Sex Hospital Discharge Instructions Patient Education 11/12/2021 21:54:26 Earache, Adult Earache, Adult An earache, or ear pain, can be caused by many things, including: ??? An infection. ??? Ear wax buildup. ??? Ear pressure. ??? Something in the ear that should not be there (foreign body). ??? A sore throat. ??? Tooth problems. ??? Jaw problems. Treatment of the earache will depend on the cause. If the cause is not clear or cannot be determined, you may need to watch your symptoms until your earache goes away or until a cause is found. Follow these instructions at home: Medicines ??? Take or apply ogsz-nct-juayxap and prescription medicines only as told by your health care provider. ??? If you were prescribed an antibiotic medicine, use it as told by your health care provider. Do not stop using the antibiotic even if you start to feel better. ??? Do not put anything in your ear other than medicine that is prescribed by your health care provider. Managing pain If directed, apply heat to the affected area as often as told by your health care provider. Use theheat source that your health care provider recommends, such as a moist heat pack or a heating pad. ??? Place a towel between your skin and the heat source. ??? Leave the heat on for 20???30 minutes. ??? Remove the heat if your skin turns bright red. This is especially important if you are unable to feel pain, heat, or cold. You may have a greater risk of getting burned. If directed, put ice on the affected area as often as told by your health care provider. To do this: ??? Put ice in a plastic bag. ??? Place a towel between your skin and the bag. ??? Leave the ice on for 20 minutes, 2???3 times a day. General instructions ??? Pay attention to any changes in your symptoms. ??? Try resting in an upright position instead of lying down. This may help to reduce pressure in your ear and relieve pain. ??? Chew gum if it helps to relieve your ear pain. ??? Treat any allergies as told by your health care provider. ??? Drink enough fluid to keep your urine pale yellow. ??? It is up to you to get the results of any tests that were done. Ask your health care provider, or the department that is doing the tests, when your results will be ready. ??? Keep all follow-up visits as told by your health care provider. This is important. Contact a health care provider if: ??? Your pain does not improve within 2 days. ??? Your earache gets worse. ??? You have new symptoms. ??? You have a fever. Get help right away if you: ??? Have a severe headache. ??? Have a stiff neck. ??? Have trouble swallowing. ??? Have redness or swelling behind your ear. ??? Have fluid or blood coming from your ear. ??? Have hearing loss. ??? Feel dizzy. Summary ??? An earache, or ear pain, can be caused by many things. ??? Treatment of the earache will depend on the cause. Follow recommendations from your health careprovider to treat your ear pain. ??? If the cause is not clear or cannot be determined, you may need to watch your symptoms until your earache goes away or until a cause is found. ??? Keep all follow-up visits as told by your health care provider. This is important. This information is not intended to replace advice given to you by your health care provider. Make sure you discuss any questions you have with your health care provider. Document Revised: 10/12/2019 Document Reviewed: 10/12/2019 [employer] Patient Education ?? 2020 [employer] Follow Up Care 11/12/2021 21:45:23 With:Follow up with primary care provider Address: When:2 to 4 days Patient Care team information Personnel Name: Hermes Ramirez MD Address: Address: [address] [place] [address], [address] [place], [place] [address]
--- OUTSIDE RECORDS SUMMARY | 2024-03-20 11:35 | XMS_ITS | Continuity of Care Document ---
Author Organization [facility] Address [address] [place] [address] Care Team Providers Care Theatre Program Director Name Role Phone Hermes Ramirez Primary Care Physician Encounter ONOFREEver MCGRAW [id number] Date(s): 07/29/21 - 07/29/[address] [address] [place] Encounter Diagnosis Intractable chronic migraine without aura(Discharge Diagnosis) - 07/29/21 Discharge Disposition: Home or Self Care Attending [...] BID, # 180 tab, 3 Refill(s), Pharmacy: [place], [place], [address], cm, 10/22/20 21:26:00 CDT, Height/Length [...] Oral [35.8-37.3 Deg C] 37.1 Deg C (07/29/21 11:23 AM) Peripheral Pulse Rate [60-100 bpm] 85 bp m (07/29/21 11:23 AM) Respiratory Rate [12-24 br/min] 20 br/mi n (07/29/21 11:23 AM) Blood Pressure [90-140/60-90 mmHg] 159/7 9mmHg *HI* (07/29/21 11:23 AM) Weight 76.66 kg (07/29/21 11:23 AM) Weight Dosing 76.66 kg (07/29/21 11:30 AM) Height 157.480 cm (07/29/21 11:23 AM) Height/Length Dosing 157.480 cm (07/29/21 11:30 AM) Body Mass Index Estimated 31 (07/29/21 11:23 AM) Social History Social History Type Response Smoking Status 5-9 cigarettes (betw een 1/4 to 1/2 pack)/day in last 30 days entered on: 05/12/21 Sex Hospital Discharge Instructions Patient Education 07/29/2021 12:02:52 Migraine Headache, [id number] Migraine Headache A migraine headache is a [...] these instructions at home: Medicines ??? Take wfrg-ied-puydemv and prescription medicines only as told by your doctor. ??? Ask your doctor if the medicine prescribed to you: ??? Requires you to avoid driving or using heavy machinery. ??? Can cause trouble pooping (constipation). You may need to take these steps to prevent or treat trouble pooping: ??? Drink enough fluid to keep your pee (urine) pale yellow. ??? Take qazr-nzn-vrjuocy or prescription medicines. ??? Eat foods that [...] provider. Document Revised: 06/28/2019 Document Reviewed: 04/18/2019 [employer] Patient Education ?? 2020 [employer] Follow Up Care 07/29/2021 11:23:11 With:Hermes Ramirez MD Address: [address] [place] [address], [address] [place] [phone]- When:1 week Comments:Continue other home medications. Care Team Personnel Name: Hermes Ramirez MD Address: [address] [place] [address], [address] [place] [phone]
--- OUTSIDE RECORDS SUMMARY | 2024-03-20 11:35 | XMS_ITS | Continuity of Care Document ---
Author Organization [facility] Address [address] [place] [address] Care Team Providers Care Conservation Educator Name Role Phone Hermes Ramirez Primary Care Physician [phone] Encounter [facility] [id number] Date(s): 01/09/24 - 01/09/24 [address] [address] [place] [address]- [place] Encounter Diagnosis History of fall(Discharge Diagnosis) - 01/09/24 Right knee pain(Discharge Diagnosis) - 01/09/24 Right shoulder pain(Discharge Diagnosis) - 01/09/24 Discharge Disposition: Home or Self Care Attending Physician: Jesus Khan MD Admitting Physician: Jesus Khan MD Allergies, Adverse Reactions, Alerts Substance Criticality [...] and Plan Extracted from: Title:ED Provider Note Author:Jesus Khan MD Date:01/09/24 Assessment/Plan 1.??History of fall??Z91.81 2.??Right knee pain??M25.561 3.??Right shoulder pain??M25.511 Orders: Discharge Patient, 01/09/24 18:40:00 CDT, Home Independently X-rays right hip and right shoulder negative.?? Discharged home. ??Follow-up with PCP.?? Patient is awaiting approval??from insurance for MRI right knee. Patient Discharge Condition Good??discharge home Discharge Disposition Discharge home Patient Education Shoulder Pain, Otbf-is-Feki Heat Therapy Fall Prevention in the Home, Adult Follow Up With When Contact Information Follow up with primary care provider Within 5 to 7 days Additional Instructions: Continue with home medications. ??Return to ED if symptoms worsen. Future Appointments Future Scheduled Tests Radiology* MRI Knee w/o Contrast Right 01/01/24 * MG Mammo Diagnostic Bilateral w/ Chad 02/23/24 [...] Daily, # 30 tab, 11 Refill(s), Pharmacy: [place], [place], 157.48, cm, 01/04/23 15:03:00 CDT, Height/Length Dosing, 81.65, kg, 01/04/23 15:03:00 CDT, Weight Dosing Start Date: 01/11/23 Status: Ordered amoxicillin 875 mg oral tablet 875 mg = 1 tab, Oral, BID, # 14 tab, 0 Refill(s), [id number], 157.48, cm, 01/01/24 14:49:00 CDT, Height, 87.09, kg, 01/01/24 14:53:00 CDT, Weight Dosing Start Date: 01/01/24 Stop Date: 01/08/24 Status: Ordered aspirin 81 mg oral delayed release tablet 81 mg = 1 tab, Oral, Daily, # 30 tab, 0 Refill(s) Start Date: 04/05/21 Status: Ordered gabapentin 300 mg oral capsule 600 mg = 2 cap, Oral, BID, # 120 cap, 2 Refill(s), Pharmacy: [id number], 157.48, cm, 07/23/23 17:59:00 CDT, Height, [...] BID, # 60 cap, 11 Refill(s), Pharmacy: [place], [place], 157.48, cm, 01/04/23 15:03:00 CDT, Height/Length Dosing, 81.65, kg, 01/04/23 15:03:00 CDT, Weight Dosing Start Date: 01/11/23 Status: Ordered nicotine 21 mg/24 hr transdermal film, extended release 1 patches, Transdermal, Daily, # 14 patches, 1 Refill(s), Pharmacy: [id number], 157.48, cm, 01/01/24 14:49:00 CDT, Height, 87.09, kg, 01/01/24 14:53:00 CDT, Weight Dosing Start Date: 01/01/24 Status: Ordered Nicotrol Inhaler 10 mg inhalation device See Instructions, 6-16 cartriges/day, # 1 EA, 2 Refill(s), Pharmacy: [id number], 157.48, cm, 08/29/23 14:22:00 CDT, Height, 88, kg, 08/29/23 14:27:00 CDT, Weight Dosing Start Date: 08/29/23 Status: Ordered pantoprazole 40 mg oral delayed release tablet 1 tab, Oral, Daily, # 90 tab, 0 Refill(s), Pharmacy: [id number], 157.48, cm, 06/07/23 16:07:00 CDT, Height, 89.36, [...] QID, # 360 tab, 0 Refill(s), [facility]: [id number], 157.48, cm, 08/29/23 14:22:00 CDT, Height, 88, kg, 08/29/23 14:27:00 CDT, Weight Dosing Start Date: 09/05/23 Status: Ordered venlafaxine 37.5 mg oral capsule, extended release 37.5 mg = 1 cap, Oral, Daily, # 90 cap, 0 Refill(s), Pharmacy: [id number] [place], 157.48, cm, 09/28/23 18:18:00 CDT, Height, 81.65, [...] pain Confirmed Active Hip sprain Confirmed Active Low back sprain Confirmed Active Squamous cell carcinoma in [...] repeat in 6 months 2normal 3normal Results Radiology Reports * Exam Date Time Procedure Performing Provider Status 01/09/24 5:41 PM XR Shoulder Complete 2+ Views Right Oscar Jeong RT(R)(ARRT); Auth (Verified) Notes: (XR Shoulder Complete 2+ Views Right) Reason For Exam: Pain right shoulder. Fell 2 weeks ago havingpain XR Shoulder Complete 2+ Views Right EXAM DESCRIPTION: XR Shoulder Complete 2+ Views Right; XR Hip 2-3 Views w/AP Pelvis Right REASON FOR STUDY: right hip pain going into back, Pain right shoulder. Fell 2 weeks ago having pain; right hip pain going into back, Fall 2 weeks ago. Having pain TECHNIQUE: 4 radiographic view(s) of the right shoulder . 2 radiographic views of the right hip and AP view of the pelvis. COMPARISON: 09/12/2023, 04/13/2014 FINDINGS: Right shoulder: The alignment is normal. There is no acute fracture. Mild acromioclavicular joint osteoarthritis. The glenohumeral joint space is normal. No aggressive bone lesions. Mild right basilar atelectasis. Calcified granulomas in the right lung. Right hip and pelvis: The alignment is normal. There is no fracture. The hip, symphysis pubis and sacroiliac joints are normal. No aggressive bone lesions. IMPRESSION: 1. No acute osseous abnormality. THIS IS AN ELECTRONICALLY VERIFIED FINAL REPORT 01/09/2024 5:51 PM - Electronically signed by Jumana Lambert M.D. AT: AT Report ID: [id number] Reading Location: [id number] Final Dictated by: Jumana Lambert Dictated DT/TM: 01/09/2024 5:53 pm Signed by: Jumana Lambert MD Signed (Electronic Signature): 01/09/2024 5:53 pm * Exam Date Time Procedure Performing Provider Status 01/09/24 5:42 PM XR Hip 2-3 Views w/A P Pelvis Right Oscar Jeong RT(R)(ARRT); Auth (Verified) Notes: (XR Hip 2-3 Views w/AP Pelvis Right) Reason For Exam: Fall 2 weeks ago. Having pain XR Hip 2-3 Views w/AP Pelvis Right EXAM DESCRIPTION: XR Shoulder Complete 2+ Views Right; XR Hip 2-3 Views w/AP Pelvis Right REASON FOR STUDY: right hip pain going into back, Pain right shoulder. Fell 2 weeks ago having pain; right hip pain going into back, Fall 2 weeks ago. Having pain TECHNIQUE: 4 radiographic view(s) of the right shoulder . 2 radiographic views of the right hip and AP view of the pelvis. COMPARISON: 09/12/2023, 04/13/2014 FINDINGS: Right shoulder: The alignment is normal. There is no acute fracture. Mild acromioclavicular joint osteoarthritis. The glenohumeral joint space is normal. No aggressive bone lesions. Mild right basilar atelectasis. Calcified granulomas in the right lung. Right hip and pelvis: The alignment is normal. There is no fracture. The hip, symphysis pubis and sacroiliac joints are normal. No aggressive bone lesions. IMPRESSION: 1. No acute osseous abnormality. THIS IS AN ELECTRONICALLY VERIFIED FINAL REPORT 01/09/2024 5:51 PM - Electronically signed by Jumana Lambert M.D. AT: AT Report ID: [id number] Reading Location: [id number] Final Dictated by: Jumana Lambert Dictated DT/TM: 01/09/2024 5:53 pm Signed by: Jumana Lambert MD Signed (Electronic Signature): 01/09/2024 5:53 pm Vital Signs Most recent to oldest [Reference Range]: 1 Temperature Oral [35.8-37.3 Deg C] 37.0 Deg C (01/09/24 3:40 PM) Peripheral Pulse Rate [60-100 bpm] 71 bp m (01/09/24 3:40 PM) Respiratory Rate [12-24 br/min] 20 br/mi n (01/09/24 3:40 PM) Blood Pressure [90-120/60-80 mmHg] 146/9 0mmHg *HI* (01/09/24 3:40 PM) Mean Arterial Pressure, Cuff [65-140 mmH g] 109 mmHg (01/09/24 3:40 PM) Weight 83.91 kg (01/09/24 3:40 PM) Weight Dosing 83.910 kg (01/09/24 3:40 PM) Height 157.48 cm (01/09/24 3:40 PM) Body Mass Index 33.83 kg/m2 (01/09/24 3:40 PM) Social History Social History Type Response Tobacco Current everyday tob acco user Tobacco Use:. Sex Sex Representation Female (finding) Hospital Discharge Instructions Patient Education 01/09/2024 18:39:31 Shoulder Pain, Ghri-rx-Jekv Shoulder Pain Many things can cause shoulder pain, including: ??? An injury. ??? Moving the shoulder in the same way again and again (overuse). ??? Joint pain (arthritis). Pain can come from: ??? Swelling and irritation (inflammation) of any part of the shoulder. ??? An injury to: ??? The shoulder joint. ??? Tissues that connect muscle to bone (tendons). ??? Tissues that connect bones to each other (ligaments). ??? Bones. Follow these instructions at home: Watch for changes in your symptoms. Let your doctor know about them. Follow these instructions to help with your pain. If you have a sling that can be taken off: ??? Wear the sling as told by your doctor. Take it off only as told by your doctor. ??? Check the skin around the sling every day. Tell your doctor if you see problems. ??? Loosen the sling if your fingers: ??? Tingle. ??? Become numb. ??? Become cold. ??? Keep the sling clean. ??? If the sling is not waterproof: ??? Do not let it get wet. ??? Take the sling off when you shower or bathe. Managing pain, stiffness, and swelling ??? If told, put ice on the painful area. ??? Put ice in a plastic bag. ??? Place a towel between your skin and the bag. ??? Leave the ice on for 20 minutes, 2???3 times a day. Stop putting ice on if it does not help with the pain. ??? If your skin turns bright red, take off the ice right away to prevent skin damage. The risk of damage is higher if you cannot feel pain, heat, or cold. ??? Squeeze a soft ball or a foam pad as much as possible. This prevents swelling in the shoulder. It also helps to strengthen the arm. General instructions ??? Take sysq-oty-qmrnhtu and prescription medicines only as told by your doctor. ??? Keep all follow-up visits. This will help you avoid any type of permanent shoulder problems. Contact a doctor if: ??? Your pain gets worse. ??? Medicine does not help your pain. ??? You have new pain in your arm, hand, or fingers. ??? You loosen your sling and your arm, hand, or fingers: ??? Tingle. ??? Are numb. ??? Are swollen. Get help right away if: ??? Your arm, hand, or fingers turn white or blue. This information is not intended to replace advice given to you by your health care provider. Make sure you discuss any questions you have with your health care provider. Document Revised: 10/07/2022 Document Reviewed: 10/07/2022 [employer] Patient Education ?? 2022 [employer]. 01/09/2024 18:39:20 Heat Therapy Heat Therapy Heat therapy is the use of heat to help ease sore, stiff, injured, and tight muscles and joints. Heat relaxes muscles, which may help to relieve pain and muscle spasms. What are the risks? If you have any of the following conditions, do not use heat therapy unless your health care provider approves. These conditions include: ??? New bruises. ??? Open wounds. ??? Healing wounds, infected skin, or scarred skin in the area being treated. ??? Poor circulation. ??? Numbness in the area being treated. ??? Unusual swelling of the area being treated. ??? Blood clots. ??? Diabetes or heart disease. ??? Cancer. ??? Inability to communicate pain. This may include young children and people who have problems with their brain function (dementia). How to use heat therapy Use the heat source that your health care provider recommends, such as: ??? Moist heat pack. ??? Hot water bottle. ??? Electric heating pad. ??? Heated gel pack. ??? Heated wrap. ??? Warm water bath. Follow your health care provider's instructions about when and how to use heat therapy. In general,you should: 1. Place a towel between your skin and the heat source. 2. Leave the heat on for 20???30 minutes. Your skin may turn pink. 3. Remove the heat if your skin turns bright red. This is especially important if you are unable tofeel pain, heat, or cold. You may have a greater risk of getting burned. If directed, you can also soak in a warm water bath. To prepare: 1. Put a non-slip padding in the bathtub to prevent slips or falls. 2. Fill a bathtub with warm water. 3. Always check the water temperature before getting into the bathtub. 4. Soak in the water for 15???20 minutes, or for as long as you are told by your health care provider. 5. When you are done, carefully stand up. You may feel dizzy. 6. After the bath, pat yourself dry. Do not rub your skin to dry it. General recommendations ??? Be careful to avoid burning your skin. High heat or long exposure to heat can cause baez. ??? Do not sleep while using heat therapy. Only use heat therapy while you are awake. ??? Check your skin during heat therapy. ??? Do not use heat therapy: ??? For new injuries, especially if you have swelling on the injured area. ??? On areas of skin that are already irritated, such as with a rash or sunburn. ??? If your skin turns bright red. Contact a health care provider if you have: ??? Blisters, redness, swelling, or numbness in the area where you use heat therapy. ??? New pain. ??? Pain that gets worse. Summary ??? Heat therapy is the use of heat to help ease sore, stiff, injured, and tight muscles and joints. Heat relaxes muscles, which may help relieve pain. ??? If you have poor circulation, healing wounds, diabetes, numbness or swelling in the treatment area, blood clots, cancer, or the inability to communicate pain, do not use heat therapy unless your health care provider approves. ??? Be careful to avoid burning your skin. Only use heat therapy while you are awake. ??? Follow your health care provider's instructions about when and how to use heat therapy. This information is not intended to replace advice given to you by your health care provider. Make sure you discuss any questions you have with your health care provider. Document Revised: 01/06/2021 Document Reviewed: 01/06/2021 [employer] Patient Education ?? 2022 [employer] 01/09/2024 18:39:18 Fall Prevention in the Home, Adult Fall Prevention in the Home, Adult Falls can cause injuries and affect people of all ages. There are many simple things that you can do to make your home safe and to help prevent falls. Ask for help when making these changes, if needed. What actions can I take to prevent falls? General instructions ??? Use good lighting in all rooms. Replace any light bulbs that burn out, turn on lights if it is dark, and use night-lights. ??? Place frequently used items in xfry-oi-mlqmy places. Lower the shelves around your home if necessary. ??? Set up furniture so that there are clear paths around it. Avoid moving your furniture around. ??? Remove throw rugs and other tripping hazards from the floor. ??? Avoid walking on wet floors. ??? Fix any uneven floor surfaces. ??? Add color or contrast paint or tape to grab bars and handrails in your home. Place contrasting color strips on the first and last steps of staircases. ??? When you use a stepladder, make sure that it is completely opened and that the sides and supports are firmly locked. Have someone hold the ladder while you are using it. Do not climb a closed stepladder. ??? Know where your pets are when moving through your home. What can I do in the bathroom? Keep the floor dry. Immediately clean up any water that is on the floor. ??? Remove soap buildup in the tub or shower regularly. ??? Use nonskid mats or decals on the floor of the tub or shower. ??? Attach bath mats securely with double-sided, nonslip rug tape. ??? If you need to sit down while you are in the shower, use a plastic, nonslip stool. ??? Install grab bars by the toilet and in the tub and shower. Do not use towel bars as grab bars. What can I do in the bedroom? Make sure that a bedside light is easy to reach. ??? Do not use oversized bedding that reaches the floor. ??? Have a firm chair that has side arms to use for getting dressed. What can I do in the kitchen? Clean up any spills right away. ??? If you need to reach for something above you, use a sturdy step stool that has a grab bar. ??? Keep electrical cables out of the way. ??? Do not use floor gibraltarian or wax that makes floors slippery. If you must use wax, make sure that it is non-skid floor wax. What can I do with my stairs? Do not leave any items on the stairs. ??? Make sure that you have a light switch at the top and the bottom of the stairs. Have them installed if you do not have them. ??? Make sure that there are handrails on both sides of the stairs. Fix handrails that are broken or loose. Make sure that handrails are as long as the staircases. ??? Install non-slip stair treads on all stairs in your home. ??? Avoid having throw rugs at the top or bottom of stairs, or secure the rugs with carpet tape to prevent them from moving. ??? Choose a carpet design that does not hide the edge of steps on the stairs. ??? Check any carpeting to make sure that it is firmly attached to the stairs. Fix any carpet that is loose or worn. What can I do on the outside of my home? Use bright outdoor lighting. ??? Regularly repair the edges of walkways and driveways and fix any cracks. ??? Remove high doorway thresholds. ??? Trim any shrubbery on the main path into your home. ??? Regularly check that handrails are securely fastened and in good repair. Both sides of all steps should have handrails. ??? Install guardrails along the edges of any raised decks or porches. ??? Clear walkways of debris and clutter, including tools and rocks. ??? Have leaves, snow, and ice cleared regularly. ??? Use sand or salt on walkways during winter months. ??? In the garage, clean up any spills right away, including grease or oil spills. What other actions can I take? Wear closed-toe shoes that fit well and support your feet. Wear shoes that have rubber soles orlow heels. ??? Use mobility aids as needed, such as canes, walkers, scooters, and crutches. ??? Review your medicines with your health care provider. Some medicines can cause dizziness or changes in blood pressure, which increase your risk of falling. Talk with your health care provider about other ways that you can decrease your risk of falls. Thismay include working with a physical therapist or fitness trainer to improve your strength, balance, and endurance. Where to find more information ??? Centers for Disease Control and Prevention, STEADI: www.cdc.gov ??? National [place] on Aging: www.caitlyn.nih.gov Contact a health care provider if: ??? You are afraid of falling at home. ??? You feel weak, drowsy, or dizzy at home. ??? You fall at home. Summary ??? There are many simple things that you can do to make your home safe and to help prevent falls. ??? Ways to make your home safe include removing tripping hazards and installing grab bars in the bathroom. ??? Ask for help when making these changes in your home. This information is not intended to replace advice given to you by your health care provider. Make sure you discuss any questions you have with your health care provider. Document Revised: 12/06/2021 Document Reviewed: 10/07/2020 [employer] Patient Education ?? 2022 [employer]. Follow Up Care 01/09/2024 15:37:08 With:Follow up with primary care provider Address: When:5 to 7 days Comments:Continue with home medications. ??Return to ED if symptoms worsen. Physician Emergency department Note * Jesus Khan MD: PERFORM Event Display: ED Note Physician Authored Date: [id number] MISHA JACKSON :1980 Age:43 years Sex:Female Visit Date:01/09/2024 Primary Care Physician: Hermes Ramirez MD Basic Information Time Seen: Jesus Khan MD / 01/09/2024 17:02 Chief Complaint states fell 2 weeks ago having pain to right hip right shoulder pain into right chest yet pain is getting more. prehospital tylenol last dose 1230 today alternating with tramadol. History Of Present Illness: 43 years old female comes in complaining of right hip pain??radiates to her back and also pain right shoulder. ??States she fell 2 weeks ago??and has been experiencing pain.?patient mentioned when incident occurred she landed on her right knee and has been experiencing considerable pain on theknee.?? She was seen in [place]??when??accident occurred. ??She??had CT lumbar spine was negative.?? Patient continues with right knee pain. ??States she is waiting??for approval for MRI to her knee. Review of Systems: Constitutional:?No??fevers,?No??chills,?No??sweats Eye:?No??recent visual problems ENT:?No??ear pain,?No??nasal congestion,?No??sore throat Respiratory:?No??shortness of breath,?No??cough Cardiovascular:?No??Chest pain,?No??palpitations,?No??syncope Gastrointestinal:?Nonausea,?No??vomiting,?No??diarrhea Genitourinary:?No??hematuria Clemente/Lymph:?No??bruising tendency,?No??swollen lymph glands Endocrine:?No??excessive thirst,??No??excessive hunger Musculoskeletal:??Positive for??back pain,??No??neck pain,??Positive for??joint pain??right knee and right shoulder.,??No??muscle pain,??No??decreased range of motion Integumentary:?No??rash,?No??pruritus,?No??abrasions Neurologic: Alert & oriented X 4 Psychiatric:?No??anxiety,?No??depression Physical Exam Vitals & Measurements T:??37.0?C ??(Oral)?? HR:??71??(Peripheral)?? RR:??20?? BP:??146/90?? SpO2:??100%?? HT:??157.48??cm?? WT:??83.91??kg?? BMI:??33.83?? Pain Score:??6?? O2 Therapy:??Room air?? General: Alert and oriented, well nourished,?No??acute distress Eye: PERRL, EOMI,?Normal?conjunctiva HENT: Normocephalic, clear tympanic membranes,?Normal? hearing, moist oral mucosa,?No??scleral icterus,?No??sinus tenderness Neck: Supple, non-tender,?No??carotid bruits,?No??JVD,?No??lymphadenopathy Lungs:??Clear to auscultation?? Respiration:??Non-Labored Heart:?Normal? rate,?Regular??rhythm,?No??murmur,?No??gallop,?No??edema Breast:?No??lumps,?No??bumps,?No??scars,?Normal? nipples Abdomen: Soft, non-tender, non-distended,?Normal? bowel sounds,?No??masses Musculoskeletal:?Normal? range of motion and strength,?Positive for??tenderness,?No??swelling Skin: Skin is warm, dry and pink,?No??rashes,?No??lesions Neurologic: Awake, alert and oriented X4, CN II-XII intact Psychiatric: Cooperative, appropriate mood and affect Procedure No Qualifying Data Assessment/Plan 1.??History of fall??Z91.81 2.??Right knee pain??M25.561 3.??Right shoulder pain??M25.511 Orders: Discharge Patient, 01/09/24 18:40:00 CDT, Home Independently X-rays right hip and right shoulder negative.?? Discharged home. ??Follow-up with PCP.?? Patient isawaiting approval??from insurance for MRI right knee. Patient Discharge Condition Good??discharge home Discharge Disposition Discharge home Patient Education Shoulder Pain, Drqh-tm-Awvc Heat Therapy Fall Prevention in the Home, Adult Follow Up With When Contact Information Follow up with primary care provider Within 5 to 7 days Additional Instructions: Continue with home medications. ??Return to ED if symptoms worsen. Medication Reconciliation Unchanged amLODIPine (amLODIPine 5 mg oral tablet)1 tab Oral (given by mouth) every day. Refills: 11. ?? amoxicillin (amoxicillin 875 mg oral tablet)1 tab Oral (given by mouth) 2 times a day for 7 Days. Refills: 0. ?? aspirin (aspirin 81 mg [...] Hx of migraine headaches Idiopathic thrombocytopenic purpura Low back sprain Lumbar back pain Migraine headache Numbness and [...] Medication Administration Given Benadryl, 50 mg, Intramuscular morphine, 2 mg, Intramuscular Allergies NSAIDs Toradol??(Kidney failure as a complication of care) aspirin??(Medication interaction) azithromycin??(Unknown) codeine??(Unknown, Itching) gentamicin morphine??(redness, Itching) erythromycin??(Medication interaction) Social History Alcohol Never Electronic Cigarette/Vaping Electronic Cigarette Use: Never. Substance Use Never Tobacco Current everyday tobacco user Tobacco Use:.- Comments: Pt states that she smokes half a pack a day. Family History Cancer: Mother. Diagnostic Results XR Hip 2-3 Views w/AP Pelvis Right 01/09/2024 17:53 CDT XR Shoulder Complete 2+ Views Right 01/09/2024 17:53 CDT XR Shoulder Complete 2+ Views Right ?? 01/09/24 17:48:16 ? EXAM DESCRIPTION: XR Shoulder Complete 2+ Views Right; XR Hip 2-3 Views w/AP Pelvis Right ?? REASON FOR STUDY: right hip pain going into back, Pain right shoulder. Fell 2 weeks ago having pain; right hip pain going into back, Fall 2 weeks ago. Having pain ?? TECHNIQUE: 4 radiographic view(s) of the right shoulder . ?? 2 radiographic views of the right hip and AP view of the pelvis. ?? COMPARISON: 09/12/2023, 04/13/2014 ?? FINDINGS: Right shoulder: ?? The alignment is normal. There is no acute fracture. Mild acromioclavicular joint osteoarthritis. The glenohumeral joint space is normal. No aggressive bone lesions. ?? Mild right basilar atelectasis. Calcified granulomas in the right lung. ?? Right hip and pelvis: ?? The alignment is normal. There is no fracture. The hip, symphysis pubis and sacroiliac joints are normal. No aggressive bone lesions. ?? IMPRESSION: 1. No acute osseous abnormality. ?? THIS IS AN ELECTRONICALLY VERIFIED FINAL REPORT 01/09/2024 5:51 PM_Electronically signed by Jumana Lambert M.D. ?? AT: AT ?? Report ID: [id number] Reading Location: [place] [address] ?? Signed By: Jumana Lambert MD ?? XR Hip 2-3 Views w/AP Pelvis Right ?? 01/09/24 17:48:16 ? EXAM DESCRIPTION: XR Shoulder Complete 2+ Views Right; XR Hip 2-3 Views w/AP Pelvis Right ?? REASON FOR STUDY: right hip pain going into back, Pain right shoulder. Fell 2 weeks ago having pain; right hip pain going into back, Fall 2 weeks ago. Having pain ?? TECHNIQUE: 4 radiographic view(s) of the right shoulder . ?? 2 radiographic views of the right hip and AP view of the pelvis. ?? COMPARISON: 09/12/2023, 04/13/2014 ?? FINDINGS: Right shoulder: ?? The alignment is normal. There is no acute fracture. Mild acromioclavicular joint osteoarthritis. The glenohumeral joint space is normal. No aggressive bone lesions. ?? Mild right basilar atelectasis. Calcified granulomas in the right lung. ?? Right hip and pelvis: ?? The alignment is normal. There is no fracture. The hip, symphysis pubis and sacroiliac joints are normal. No aggressive bone lesions. ?? IMPRESSION: 1. No acute osseous abnormality. ?? THIS IS AN ELECTRONICALLY VERIFIED FINAL REPORT 01/09/2024 5:51 PM_Electronically signed by Jumana Lambert M.D. ?? AT: AT ?? Report ID: [id number] Reading Location: [place] [address] ?? Signed By: Jumana Lambert MD Attending Attestation Follow-up with PCP Electronically Signed on 01/09/2024 18:41 CDT Jesus Khan MD Patient Care team information Care Team Personnel Name: Jsesee Jones SANITATION WORKER HOSING MACHINERY Position: Physician Member Role: Nurse Practitioner Address: [address] [place] [address], [facility] [address] Name: Latoya Marquez SANITATION WORKER HOSING MACHINERY Position: Physician Member Role: Nurse Practitioner Address: [address] Name: Leonila Gonzalez SANITATION WORKER HOSING MACHINERY Position: Physician Member Role: Nurse Practitioner Address: [address] [place] [address] Name: Beth Brandt SANITATION WORKER HOSING MACHINERY Position: Physician Member Role: Nurse Practitioner Address: [address] [place] [address] Name: Hermes Ramirez MD Position: Physician Member Role: Informed Provider Address: [address] [facility], [address] [place], [place] [address] Name: Pillo Moe SANITATION WORKER HOSING MACHINERY Position: Physician Member Role: Nurse Practitioner [facility] [address] [facility] [address] [facility] Care Team Related Persons Name: STACIA JONES Name: ROBYN JAMA Name: NAIF CHOI Name: MADY CHEN Name: MADY CHEN Insurance Providers Guarantor name: MISHA JACKSON Health Plan Information #: 2 Payer: FINANCIAL ASSISTANCE APPROVED Member Number: [id number] Policy Number: Health Plan Information #: 1 Payer: [employer]ICA[employer] MGD CARE Member Number: [id number] Policy Number: Health Plan Information #: 3 Payer: MISC Workers Comp Member Number: NA Policy Number: NA
--- OUTSIDE RECORDS SUMMARY | 2024-03-20 11:35 | XMS_ITS | Continuity of Care Document ---
Author Organization [facility] Address [address] [place] [address] Care Team Providers Care Picker/Puller Name Role Phone Hermes Ramirez Primary Care Physician Encounter [facility] [id number] Date(s): 08/14/22 - 08/14/[address] [address] Encounter Diagnosis Migraine(Discharge Diagnosis) - 08/14/22 Discharge Disposition: Home or Self Care Attending [...] wheezing, # 6.7 g, 0 Refill(s), Pharmacy: [place], [place], 73, cm, 09/13/21 23:53:00 CDT, Height/Length [...] needed, # 12 cap, 0 Refill(s), Pharmacy: [place], [place], [address], cm, 11/04/21 20:02:00 CDT, Height/Length [...] 18:45:00CST, Height/Length Dosing, 72.57, kg, 02/07/22 18:45:00 BELT TENDER, Weight Dosing Start Date: 02/13/22 Status: Ordered Pepcid 20 mg oral tablet 20 mg = 1 tab, Oral, BID, 0 Refill(s) Start Date: 09/29/20 Status: Ordered Phenergan 25 mg oral tablet 25 mg = 1 tab, Oral, every 6 hr, PRN as needed for nausea/vomiting, # 20 tab, 0 Refill(s), Pharmacy: [facility] [place], [place], [address], cm, 09/29/21 23:03:00 CDT, Height/Length [...] [35.8-37.3 Deg C] 37 De g C (08/14/22 2:51 PM) Apical Heart Rate [60-100 bpm] 90 bpm (08/14/22 4:57 PM) Peripheral Pulse Rate [60-100 bpm] 82 bp m (08/14/22 2:51 PM) Respiratory Rate [12-24 br/min] 18 br/mi n (08/14/22 4:57 PM) 18 br/min (08/14/22 2:51 PM) Blood Pressure [90-140/60-90 mmHg] 148/9 3mmHg *HI* (08/14/22 4:57 PM) 143/81mmHg *HI* (08/14/22 2:51 PM) Weight 81.00 kg (08/14/22 2:51 PM) Weight Dosing 81.00 kg (08/14/22 3:06 PM) Height 157.000 cm (08/14/22 2:51 PM) Height/Length Dosing 157.000 cm (08/14/22 3:06 PM) Body Mass Index 33.000 kg/m2 (08/14/22 2:51 PM) Social History Social History Type Response Tobacco Current everyday tob acco user Tobacco Use:. Sex Hospital Discharge Instructions Patient Education 08/14/2022 16:50:17 Chronic Migraine Headache Chronic Migraine Headache A [...] these instructions at home: Medicines ??? Take zlzo-hao-sbapxmi and prescription medicines only as told by [...] Headache and Migraine Patients (CHAMP): headachemigraine.org ??? [place] Migraine Foundation: americanmigrainefoundation.org ??? National Headache Foundation: [...] provider. Document Revised: 04/22/2020 Document Reviewed: 04/22/2020 [employer] Patient Education ?? 2021 [employer] Follow Up Care 08/14/2022 14:51:38 With:Hermes Ramirez MD Address: [address] [place] [address], [address] [place] [address]- When:1 month Physician Emergency department Note * Mike Malik MD: PERFORM Event Display: ED Note Physician Authored Date: [id number] MISHA JACKSNO :1980 Age:41 years Sex:Female Visit Date:08/14/2022 Primary Care Physician: Hermes Ramirez MD Basic Information Time Seen: Mike Malik MD / 08/14/2022 15:30 Chief Complaint patient c/o migraine since this morning. took her migraine medicine last at 1030. History Of Present Illness: 41 yo with long h/o migraines presents with headache. Says feels like her usual migraines, no head trauma. No other complaints. Some photophobia. Review of Systems: Constitutional:?No??fevers,?No??chills,?No??sweats Eye:?No??recent visual problems ENT:?No??ear pain,?No??nasal congestion,?No??sore throat Respiratory:?No??shortness of breath,?No??cough Cardiovascular:?No??Chest pain,?No??palpitations,?No??syncope Gastrointestinal:?Nonausea,?No??vomiting,?No??diarrhea Genitourinary:?No??hematuria Clemente/Lymph:?No??bruising tendency,?No??swollen lymph glands Endocrine:?No??excessive thirst,??No??excessive hunger Musculoskeletal:??No??back pain,??No??neck pain,??No??joint pain,??No??muscle pain,??No??decreased range of motion Integumentary:?No??rash,?No??pruritus,?No??abrasions Neurologic: Alert & oriented X 4 Psychiatric:?No??anxiety,?No??depression Physical Exam Vitals & Measurements T:??37?C ??(Oral)?? HR:??82??(Peripheral)?? RR:??18?? BP:??143/81?? SpO2:??100%?? HT:??157.000??cm?? WT:??81.00??kg?? BMI:??33.000?? Pain Score:??7?? O2 Therapy:??Room air?? General: Alert [...] and affect Procedure No Qualifying Data Assessment/Plan 1.??Migraine??G43.909 doing much better, f/u with primary care doc tor. Patient Discharge Condition good Discharge Disposition discharge home in good conditin Patient Education Chronic Migraine Headache Follow Up With When Contact Information Hermes Ramirez MD Within 1 [facility] [address] Additional Instructions: Medication Reconciliation Unchanged albuterol (albuterol [...] TWICE DAILY, after breakfast and dinner. ?? predniSONE (predniSONE 20 mg oral tablet)2 tab Oral (given by mouth) once. ?? promethazine (Phenergan 25 mg oral [...] removal from breast???Hernia???liver transplant Medication Administration Given Dilaudid, 0.5 mg, IM Allergies NSAIDs Toradol??(Kidney failure as a complication of care) aspirin??(Medication interaction) azithromycin??(Unknown) codeine??(Unknown, Itching) gentamicin erythromycin??(Medication interaction) Social History Alcohol Never Electronic Cigarette/Vaping Electronic Cigarette Use: Never. Substance Use Never Tobacco Current everyday tobacco user Tobacco Use:. Family History Cancer: Mother. Electronically Signed on 08/14/22 04:51 PM Mike Malik MD Patient Care team information Care Team Personnel Name: Jessee Jones ASSISTANT BOOKKEEPER Position: Physician Member Role: Nurse Practitioner Address: Address: [address] [place] [address], [facility] [address] [place] [address]- Name: Latoya Marquez ASSISTANT BOOKKEEPER Position: Physician Member Role: Nurse Practitioner Address: Address: [address] [place] [address]- Name: Leonila Gonzalez ASSISTANT BOOKKEEPER Position: Physician Member Role: Nurse Practitioner Address: Address: [address] [place] [address]- Name: Beth Brandt ASSISTANT BOOKKEEPER Position: Physician Member Role: Nurse Practitioner Address: Address: [address] [place] [address] [place] [address] Name: Hermes Ramirez MD Position: Physician Member Role: Informed Provider Address: Address: [address] [place] [address], [address] [place] [address]- Name: Pillo Moe ASSISTANT BOOKKEEPER Position: Physician Member Role: Nurse Practitioner Address: Address: [address] [place] [address], [facility] [address] [place] Name: Gia Underwood RN Position: Nurse Member Role: ED Nurse Name: Mike Malik MD Position: Physician Member Role: ED Physician Address: Address: [address] [place] [address] [place] [address]- Care Team Related Persons Name: STACIA JONES Address: Home [address] [place], [place] [id number] Name: ROBYN JAMA Address: Home
--- OUTSIDE RECORDS SUMMARY | 2024-03-20 11:35 | XMS_ITS | Continuity of Care Document ---
Author Organization [facility] Address [address] [place] [address] Care Team Providers Care Registry Np Name Role Phone Hermes Ramirez Chris Primary Care Physician Encounter ONOFREEver MCGRAW [id number] Date(s): 07/12/21 - 07/12/[address] [address] [place] Encounter Diagnosis Headache, chronic migraine without aura(Discharge Diagnosis) - 07/12/21 Discharge Disposition: Home or Self Care Attending [...] * MRI Spine Cervical w/o Contrast 06/24/21 Functional Status 07/12/21 Other exposure to Infectious Disease Non e [...] BID, # 180 tab, 3 Refill(s), Pharmacy: [place], [place], [address], cm, 10/22/20 21:26:00 CDT, Height/Length [...] Oral [35.8-37.3 Deg C] 36.7 Deg C (07/12/21 6:28 PM) Peripheral Pulse Rate [60-100 bpm] 105 b pm *HI* (07/12/21 6:28 PM) Respiratory Rate [12-24 br/min] 18 br/mi n (07/12/21 6:28 PM) Blood Pressure [90-140/60-90 mmHg] 126/8 5mmHg (07/12/21 6:28 PM) Weight 77.11 kg (07/12/21 6:28 PM) Weight Dosing 77.11 kg (07/12/21 6:33 PM) Height 157.480 cm (07/12/21 6:28 PM) Height/Length Dosing 157.480 cm (07/12/21 6:33 PM) Body Mass Index Estimated 31 (07/12/21 6:28 PM) Social History Social History Type Response Smoking Status 5-9 cigarettes (betw een 1/4 to 1/2 pack)/day in last 30 days entered on: 05/12/21 Sex Hospital Discharge Instructions Patient Education 07/12/2021 18:55:59 Migraine Headache Migraine Headache A migraine headache [...] these instructions at home: Medicines ??? Take axut-nqs-mqxgfqy and prescription medicines only as told by your health care provider. ??? Ask your health care provider if the medicine prescribed to you: ??? Requires you to avoid driving or using heavy machinery. ??? Can cause constipation. You may need to take these actions to prevent or treat constipation: ??? Drink enough fluid to keep your urine pale yellow. ??? Take ufyp-qaq-pebnacz or prescription medicines. ??? Eat foods that [...] provider. Document Revised: 06/28/2019 Document Reviewed: 04/18/2019 ElseMindEdge Patient Education ?? 2020 [employer] Follow Up Care 07/12/2021 18:28:05 With:Hermes Ramirez MD Address: [address] [place] [address], [address] [place] [address]- When:1 week Care Team Personnel Name: Hermes Ramirez MD Address: [address] [place] [address], [address] [place] [address]-
--- OUTSIDE RECORDS SUMMARY | 2024-03-20 11:35 | XMS_ITS | Continuity of Care Document ---
Author Organization [facility] Address [address] [place] [address]- Care Team Providers Care Parachute Folder Name Role Phone Hermes Ramirez Primary Care Physician Encounter [facility] [id number] Date(s): 01/11/24 - 01/11/24 [facility] [address] [place] [address]- Encounter Diagnosis Right shoulder pain(Discharge Diagnosis) - 01/11/24 Chronic back pain(Discharge Diagnosis) - 01/11/24 Other chronic pain(Discharge Diagnosis) - 01/11/24 Right knee pain(Discharge Diagnosis) - 01/11/24 Discharge Disposition: Home or Self Care Attending Physician: Hermes Ramirez MD Allergies, Adverse Reactions, Alerts Substance Criticality [...] iv site Assessment and Plan Extracted from: Title:Office Visit Note Author:Philip Ramirez MD Date:01/11/24 1.??Right shoulder pain??M25 .511 ??Patient with continued right shoulder pain status post fall in early December.?? X-ray at the time of the fall was negative for fracture.?? Will check MRI of the shoulder to look for other injuries and see if she needs orthopedic??evaluation. Ordered: MRI Shoulder w/o Contrast Right, 01/11/24, Routine, Reason: right shoulder pain s/p fall, No, No, Transport Mode: Ambulatory, Right shoulder pain ?? 2.??Chronic back pain??M54.9 ??CT scan??of the lumbar and thoracic spine??in the emergency room after the injury did not show??acute injuries. ?? 3.??Right knee pain??M25.561 ??Awaiting MRI of the knee approval by work comp. ?? Other chronic pain??G89.29 ?? Future Appointments Future Scheduled Tests Radiology* MRI Knee w/o Contrast Right 01/01/24 * MRI Shoulder w/o Contrast Right 01/11/24 * [facility] Mammo Diagnostic Bilateral w/ Chad [...] Daily, # 30 tab, 11 Refill(s), Pharmacy: [place], [place], [address], cm, 01/04/23 15:03:00 CDT, Height/Length Dosing, 81.65, kg, 01/04/23 15:03:00 CDT, Weight Dosing Start Date: 01/11/23 Status: Ordered amoxicillin 875 mg oral tablet 875 mg = 1 tab, Oral, BID, # 14 tab, 0 Refill(s), [id number], 157.48, cm, 01/01/24 14:49:00 CDT, Height, 87.09, kg, 01/01/24 14:53:00 CDT, Weight Dosing Start Date: 01/01/24 Stop Date: 01/08/24 Status: Ordered aspirin 81 mg oral delayed release tablet 81 mg = 1 tab, Oral, Daily, # 30 tab, 0 Refill(s) Start Date: 04/05/21 Status: Ordered gabapentin 300 mg oral capsule 600 mg = 2 cap, Oral, BID, # 120 cap, 2 Refill(s), Pharmacy: [id number], 157.[address], cm, 07/23/23 17:59:00 CDT, Height, [...] BID, # 60 cap, 11 Refill(s), Pharmacy: [place], [address], cm, 01/04/23 15:03:00 CDT, Height/Length Dosing, 81.65, kg, 01/04/23 15:03:00 CDT, Weight Dosing Start Date: 01/11/23 Status: Ordered nicotine 21 mg/24 hr transdermal film, extended release 1 patches, Transdermal, Daily, # 14 patches, 1 Refill(s), Pharmacy: [id number], 157.48, cm, 01/01/24 14:49:00 CDT, Height, 87.09, [...] Daily, # 90 tab, 0 Refill(s), [facility]acy: [id number], 157.48, cm, 06/07/23 16:07:00 CDT, Height, 89.36, [...] QID, # 360 tab, 0 Refill(s), Pharmacy: [id number], 157.48, cm, 08/29/23 14:22:00 CDT, Height, 88, kg, 08/29/23 14:27:00 CDT, Weight Dosing Start Date: 09/05/23 Status: Ordered venlafaxine 37.5 mg oral capsule, extended release 37.5 mg = 1 cap, Oral, Daily, # 90 cap, 0 Refill(s), [id number] [place], 157.[address], cm, 09/28/23 18:18:00 CDT, Height, 81.65, [...] to oldest [Reference Range]: 1 Temperature Tympanic [36.6-38.1 Deg C] 3 6.8 Deg C (01/11/24 2:54 PM) Peripheral Pulse Rate [60-100 bpm] 102 b pm *HI* (01/11/24 2:54 PM) Respiratory Rate [12-24 br/min] 18 br/mi n (01/11/24 2:54 PM) Blood Pressure [90-120/60-80 mmHg] 130/9 0mmHg *HI* (01/11/24 2:54 PM) Mean Arterial Pressure, Cuff [65-140 mmH g] 103 mmHg (01/11/24 2:54 PM) Weight 89.81 kg (01/11/24 2:54 PM) Weight Measured (lbs) 197.997 lb (01/11/24 2:54 PM) Weight Dosing 89.810 kg (01/11/24 2:54 PM) Height 157.48 cm (01/11/24 2:54 PM) Height/Length Measured (inches) 62 inch (01/11/24 2:54 PM) BSA Measured 1.98 m2 (01/11/24 2:54 PM) Body Mass Index 36.21 kg/m2 (01/11/24 2:54 PM) Social History Social History Type Response Tobacco Current everyday tob acco user Tobacco Use:. Sex Sex Representation Female (finding) Physician Outpatient Note * Hermes Ramirez MD: PERFORM Event Display: Office Clinic Note Physician Authored Date: [id number] MISHA JACKSON :1980 Age:43 years Sex:Female Visit Date:01/11/2024 Primary Care Physician: Hermes Ramirez MD Chief Complaint Pt here and states that she is still hurting and that her pain is increasing. Pt has back pain, hippain and shoulder pain. Pt has neck pain and is unable to lay on her shoulders History of Present Illness MISHA JACKSON??is a??43 Years??old??Female??presenting today with??Chief Complaint: Pt here and states that she is still hurting and that her pain is increasing. Pt has back pain, hip pain and shoulder pain. Pt has neck pain and is unable to lay on her shoulders (01/11/24 14:54:00).?? These injuries stemmed from a fall at work in early December. ??She fell onto her right knee which took most of her weight. ??Since then she has been having pain in the right knee as well as the right shoulderand the spine and hips. ??She had x-ray of her knee,??hips??in the emergency room on December 21. ??She did CT scan of the lumbar and thoracic spine??at that same visit.?? All of those test??did not show any acute abnormalities.?? She had??repeat x-rays of the hips??as well as the??right shoulder??2 days ago in the emergency room that did not show any acute abnormalities.?? The MRI of her right knee??is still waiting on??approval from work comp. Review of Systems No fever.?? Physical Exam Vitals & Measurements T:??36.8?C ??(Tympanic)?? HR:??102??(Peripheral)?? RR:??18?? BP:??130/90?? SpO2:??98%?? HT:??157.48??cm?? WT:??89.81??kg?? BMI:??36.21?? Pain Score:??8?? BSA:??1.98?? General: Alert and oriented, well nourished,?No??acute distress Lungs: Clear to auscultation,?Non-labored?? respiration Heart:?Normal? rate,?Regular??rhythm,?No??murmur,?No??gallop MS:??Patient's right rotator cuff intact on strength testing today. ??She has pain over the right shoulder??towards the sternum. Assessment/Plan 1.??Right shoulder pain??M25.511 ??Patient with continued right shoulder pain status post fall in early December.?? X-ray at the timeof the fall was negative for fracture.?? Will check MRI of the shoulder to look for other injuries and see if she needs orthopedic??evaluation. Ordered: MRI Shoulder w/o Contrast Right, 01/11/24, Routine, Reason: right shoulder pain s/p fall, No, No, Transport Mode: Ambulatory, Right shoulder pain ?? 2.??Chronic back pain??M54.9 ??CT scan??of the lumbar and thoracic spine??in the emergency room after the injury did not show??acute injuries. ?? 3.??Right knee pain??M25.561 ??Awaiting MRI of the knee approval by work comp. ?? Other chronic pain??G89.29 ?? Future Orders MRI Shoulder w/o Contrast Right, 01/11/24, Routine, Reason: right shoulder pain s/p fall, No, No, Transport Mode: Ambulatory, Right shoulder [...] oral tablet, 5 mg= 1 tab, Oral, Daily, 11 refills amoxicillin 875 mg oral tablet, 875 mg= 1 tab, Oral, BID aspirin 81 mg oral delayed release tablet, 81 mg= 1 tab, Oral, Daily gabapentin 300 mg oral capsule, 600 mg= 2 cap, Oral, BID, 2 refills Gengraf 25 mg oral capsule levothyroxine 75 mcg (0.075 mg) oral tablet LORazepam 0.5 mg oral tablet metoprolol succinate 100 mg oral capsule, extended release, 100 mg= 1 cap, Oral, BID, 11 refills nicotine 21 mg/24 hr transdermal film, extended release, 1 patches, Transdermal, Daily, 1 refills Nicotrol Inhaler 10 mg inhalation device, See Instructions, 2 refills pantoprazole 40 mg oral delayed release tablet, 1 tab, Oral, Daily Pepcid 20 mg oral tablet, 20 mg= 1 tab, Oral, BID predniSONE 5 mg oral delayed release tablet, 5 mg= 1 tab, Oral, Daily sucralfate 1 g oral tablet, 1 tab, Oral, QID venlafaxine 37.5 mg oral capsule, extended release, 37.5 mg= 1 cap, Oral, Daily Allergies NSAIDs Toradol??(Kidney failure [...] (Tdap) adult/adol 05/25/2012 Recorded Electronically Signed on 01/11/2024 15:15 CDT Hermes Ramirez MD Patient Care team information Care Team Personnel Name: Jessee Jones NP Position: Physician Member Role: Nurse Practitioner Address: [address] [place] [address], [address] [place] [address] Name: Latoya Marquez VP SECURITY Position: Physician Member Role: Nurse Practitioner Address: [address] [place] [address]- Name: Leonila Gonzalez VP SECURITY Position: Physician Member Role: Nurse Practitioner Address: [address] [place] [address]- Name: Beth Brandt VP SECURITY Position: Physician Member Role: Nurse Practitioner Address: [address] [place] [address] [place] [address] Name: Hermes Ramirez MD Position: Physician Member Role: Informed Provider Address: [address] [facility], [address] [place] [address]- Name: Pillo Moe VP SECURITY Position: Physician Member Role: Nurse Practitioner Address: [address] [facility] [facility] Care Team Related Persons Name: STACIA JONES Name: ROBYN JAMA Name: NAIF CHOI Name: MADY CHEN Name: MADY CHEN Insurance Providers Guarantor name: MISHA JACKSON Health Plan Information #: 1 Payer: [employer] Workers [employer] Member Number: [id number] Policy Number: Health Plan Information #: 2 Payer: [employer] MGD CARE Member Number: NA Policy Number: Health Plan Information #: 3 Payer: FINANCIAL ASSISTANCE APPROVED Member Number: NA Policy Number: Health Plan Information #: 4 Payer: [employer] Workers Comp Member Number: [id number] Policy Number:
--- OUTSIDE RECORDS SUMMARY | 2024-03-20 11:36 | XMS_ITS | Continuity of Care Document ---
Author Organization [facility] Address [address] [place] [address]- Care Team Providers Care Charge Attendant Name Role Phone Hermes Ramirez Primary Care Physician Encounter ONOFRE Date(s): 02/21/23 - 02/21/23 [facility] [address] [place] [address]- Encounter Diagnosis Breast lump on left side at 3 o'clock position(Discharge Diagnosis) - 02/21/23 Discharge Disposition: Home or Self Care Attending [...] EIA 04/07/22 * Stool Culture 04/07/22 * Urinalysis with Microscopic 10/31/22 * Urine Culture 10/31/22 * Clostridium difficile Amp 04/07/22 * Ova + Parasite Exam 04/07/22 Radiology* XR Shoulder Complete 2+ Views Right 07/04/22 * MG Mammo Diagnostic Bilateral w/ Chad 02/21/23 * US Breast Limited Left 02/21/23 Immunizations Given and Recorded Vaccine Date Status Refusal Reason tetanus/diphth/pertuss (Tdap) adult/adol 10/18/21 Given tetanus/diphth/pertuss (Tdap) adult/adol 05/10/17 Recorded tetanus/diphth/pertuss (Tdap) adult/adol 03/20/17 Recorded tetanus/diphth/pertuss (Tdap) adult/adol 3/8/13 Recorded hepatitis B adult vaccine 11/10/17 Recorded hepatitis B adult vaccine 10/09/17 Recorded hepatitis A adult vaccine 10/09/17 Recorded Medications amLODIPine 5 mg oral tablet 5 mg = 1 tab, Oral, Daily, # 30 tab, 11 Refill(s), Pharmacy: [place], [place], 157.48, cm, 01/04/23 15:03:00 CDT, Height/Length [...] BID, # 60 cap, 11 Refill(s), Pharmacy: [place], [place], 157.48, cm, 01/04/23 15:03:00 CDT, Height/Length [...] KIT 10 Start Date: 01/02/23 Status: Ordered topiramate 25 mg oral tablet TAKE ONE TABLET BY MOUTH TWICE DAILY along with 50mg TO equal 75mg TWICE DAILY Start Date: 01/23/23 Status: Ordered topiramate 50 mg oral tablet 50 mg = 1 tab, TAKE ONE TABLET BY MOUTH TWICE DAILY along with 25mg TWICE DAILY TO equal 75mg TWICEDAILY Start Date: 01/23/23 Status: Ordered venlafaxine 37.5 mg oral capsule, [...] aura Confirmed Active Migraine headache Confirmed Active Migraine headache Confirmed Active Pain, [...] Diagnosis Body Site Status Screening Pap Smear; Alilson ramirez, Preparing And Conveyance Of Cervical/Vaginal Smear [...] 1 Temperature Tympanic [36.6-38.1 Deg C] 3 6.5 Deg C *LOW* (02/21/23 3:22 PM) Peripheral Pulse Rate [60-100 bpm] 86 bp m (02/21/23 3:22 PM) Respiratory Rate [12-24 br/min] 18 br/mi n (02/21/23 3:22 PM) Blood Pressure [90-140/60-90 mmHg] 132/7 4mmHg (02/21/23 3:22 PM) Mean Arterial Pressure, Cuff [70-110 mmH g] 93 mmHg (02/21/23 3:22 PM) Weight 86.64 kg (02/21/23 3:22 PM) Weight Measured (lbs) 191.008 lb (02/21/23 3:22 PM) Weight Dosing 86.640 kg (02/21/23 3:22 PM) Social History Social History Type Response Tobacco Current everyday tob acco user Tobacco Use:. Sex Physician Outpatient Note * Hermes Ramirez MD: PERFORM Event Display: Office Clinic Note Physician Authored Date: [id number] MISHA JACKSON :1980 Age:42 years Sex:Female Visit Date:02/21/2023 Primary Care Physician: Hermes Ramirez MD Chief Complaint Pt here for ED Follow up. Pt was seen at [facility]. Pt was seen for back pain. Pt had a CT scan done and they found a spot of her left breast area History of Present Illness MISHA JACKSON??is a??42 Years??old??Female??presenting today with??Chief Complaint: Pt here for ED Follow up. Pt was seen at [facility]. Pt was seen for back pain. Pt had a CT scan done and they found a spot of her left breast area (02/21/23 15:22:00).?? Since they found that she feels like she is able to feel the area on the left??breast near the armpit.?? He is basically asymptomatic.?? She had mammogram long ago after some breast trauma but not in many years.?? No skin rash. ??No discharge from the nipple. Review of Systems No fever. Physical Exam Vitals & Measurements T:??36.5?C ??(Tympanic)?? HR:??86??(Peripheral)?? RR:??18?? BP:??132/74?? SpO2:??98%?? WT:??86.64??kg?? Pain Score:??5?? Gen:??Alert and oriented no acute distress. Breast:??Examination done with nurse in the room.?? Patient with no??hard masses or fixed masses inthe left breast.?? She does have an area at the 3 o'clock position??of fullness/lump.?? It is very small. Depression Screen?? PHQ 2?? PHQ 9?? Little Interest - Pleasure in Activities: Not at all Trouble Falling or Staying Asleep: Not at all Feeling Down, Depressed, Hopeless: Not at all Feeling Tired or Little Energy: Not at all Initial Depression Screen Score: 0 Score Poor Appetite or Overeating: Not at all ?? Feeling Bad About Yourself: Not at all ?? Trouble Concentrating: Not at all ?? Moving or Speaking Slowly: Not at all ?? Thoughts Better Off or Hurting Self: Not at all ?? Detailed Depression Screen Score: 0 ?? Total Depression Screen Score: 0 Assessment/Plan 1.??Breast lump on left side at 3 o'clock position??N63.25 Small basically asymptomatic breast lump 3 o'clock position??seen on recent??CT scan.?? Will get mammogram with ultrasound if needed??to investigate this further. Orders: MG Mammo Diagnostic Bilateral w/ Chad, 02/21/23, Routine, Reason: lump left breast, Transport Mode:Ambulatory, Left breast lump US Breast Limited Left, 02/21/23, Routine, Reason: lump left breast, Transport Mode: Ambulatory, Left breast lump Future Orders MG Mammo Diagnostic Bilateral w/ Chad, 02/21/23, Routine, Reason: lump left breast, Transport Mode:Ambulatory, Left breast lump US Breast Limited Left, 02/21/23, Routine, Reason: lump left breast, Transport Mode: Ambulatory, Left breast lump Problem List/Past Medical History Ongoing Acne Anxiety Breast lump on left side at 3 o'clock position Cervicalgia Chronic neck pain Chronic pain Chronic [...] thrombocytopenic purpura Lumbar back pain Migraine headache Migraine headache Migraine headache Nausea Numbness and [...] detection of COVID-19 virus Liver transplant disorder Otalgia of right ear Otitis externa of right ear Rash Recurrent streptococcal tonsillitis Right otitis externa Skin change Sore throat Sprain of knee Upper respiratory infection Urinary tract infection in female Yellow eyes Procedure/Surgical History ???Screening Pap Smear; Obtaining, Preparing And Conveyance Of Cervical/Vaginal Smear To Laboratory(07/2022)???Examining eye (2021)???Bladder washout (12/14/2020)???Kidney transplant (05/13/2020)???Tx - Liver transplantation (05/08/2020)???Mammogram (2020)??? delivery???cyst removal from [facility]???H[place]ia???liver transplant Medications amLODIPine 5 mg oral tablet, 5 mg= 1 tab, Oral, Daily, 11 refills aspirin 81 mg oral delayed release tablet, 81 mg= 1 tab, Oral, Daily gabapentin 300 mg oral capsule Gengraf 25 mg oral capsule levothyroxine 75 mcg (0.075 mg) oral tablet LORazepam 0.5 mg oral tablet metoprolol succinate 100 mg oral capsule, extended release, 100 mg= 1 cap, Oral, BID, 11 refills mycophenolate mofetil 250 mg oral capsule Pepcid 20 mg oral tablet, 20 mg= 1 tab, Oral, BID Remeron, 7.5 mg, Oral, Daily SEMAGLUTIDE/NAD+ 1000MCG-20MG/ topiramate 25 mg oral tablet topiramate 50 mg oral tablet, 50 mg= 1 tab venlafaxine 37.5 mg oral capsule, extended release, [...] (Tdap) adult/adol 05/25/2012 Recorded Electronically Signed on 02/21/23 03:55 PM Hermes Ramirez MD Patient Care team information Care Team Personnel Name: Jessee Jones LICENSING ANALYST Position: Physician Member Role: Nurse Practitioner Address: Address: [address] [place] [address], [address] Name: Latoya Marquez LICENSING ANALYST Position: Physician Member Role: Nurse Practitioner Address: Address: [address] [place] [address] Name: Leonila Gonzalez LICENSING ANALYST Position: Physician Member Role: Nurse Practitioner Address: Address: [address] [place] [address] Name: Beth Brandt LICENSING ANALYST Position: Physician Member Role: Nurse Practitioner Address: Address: [address] [place] [id number] Name: Hermes Ramirez MD Position: Physician Member Role: Primary Care Physician Address: Address: [address] [place] [address], [address] [place], [place] [address] Name: Anamika Gore MD Position: Physician - Women's Health Member Role: Informed Provider Name: Pillo Moe NP Position: Physician Member Role: Nurse Practitioner Address: Address: [address] [place] [address], [address] [facility] Care Team Related Persons Name: STACIA JONES Address: Home [address] [place], [place] [id number] Name: ROBYN JAMA
--- OUTSIDE RECORDS SUMMARY | 2024-03-20 11:36 | XMS_ITS | Continuity of Care Document ---
Author Organization [facility] Address [address] [place] [address] Care Team Providers Care Manufacturing Engineer Assembly Name Role Phone Hermes Ramirez Primary Care Physician [phone] Encounter RANDY MCGRAW [id number] Date(s): 07/20/22 - 07/20/22 [facility] [address] [place] [address]- [place] Discharge Disposition: Home or [...] Assessment and Plan Diagnostic Tests Pending * Thyroid Peroxidase (TPO) Ab LC 07/20/22 * ACTH, Plasma LC 07/20/22 * Cortisol - AM LC 07/20/22 * Cyclosporine, Blood LC-MS/MS LC 07/20/22 Future Scheduled Tests Laboratory* Giardia lamblia Ag, [...] wheezing, # 6.7 g, 0 Refill(s), Pharmacy: [place], [place], 73, cm, 09/13/21 23:53:00 CDT, Height/Length [...] needed, # 12 cap, 0 Refill(s), Pharmacy: [place], [place], 157, cm, 11/04/21 20:02:00 CDT, Height/Length [...] BID, # 180 tab, 3 Refill(s), Pharmacy: [facility], 157.48, cm, 02/07/22 18:45:00CST, Height/Length Dosing, 72.57, kg, 02/07/22 18:45:00 STOCK BROKER SUPERVISOR, Weight Dosing Start Date: 02/13/22 Status: Ordered Pepcid 20 mg oral tablet 20 mg = 1 tab, Oral, BID, 0 Refill(s) Start Date: 09/29/20 Status: Ordered Phenergan 25 mg oral tablet 25 mg = 1 tab, Oral, every 6 hr, PRN as needed for nausea/vomiting, # 20 tab, 0 Refill(s), Pharmacy: [facility] [place] [place], 157, cm, 09/29/21 23:03:00 CDT, Height/Length [...] Complete d Results Laboratory List Name Date Automated Diff 07/20/22 CBC w/ Diff 07/20/22 Comprehensive Metabolic Panel 07/20/22 GGT 07/20/22 Free T4 07/20/22 Most recent to oldest [Reference Range]: 1 WBC [4.0-11.5 K/mcL] 5.9 K/mcL (07/20/22 8:06 AM) RBC [4.20-5.40 x10^6/mcL] 4.34 x10^6/mcL (07/20/22 8:06 AM) Neutro Auto 67.5 % *NA* (07/20/22 8:06 AM) Lymph Auto 20.2 % *NA* (07/20/22 8:06 AM) Beaufort Auto 8.7 % *NA* (07/20/22 8:06 AM) Basophil Auto 0.2 % *NA* (07/20/22 8:06 AM) BUN [7-18 mg/dL] 18 mg/dL (07/20/22 8:06 AM) Glucose Level [70-110 mg/dL] 85 mg/dL (07/20/22 8:06 AM) Potassium Level [3.5-5.1 mmol/L] 3.5 mmo l/L (07/20/22 8:06 AM) Baso Absolute [0.0-0.1 x10^3/mcL] 0.0 x1 0^3/mcL (07/20/22 8:06 AM) MCV [78.0-100.0 fL] 94.7 fL (07/20/22 8:06 AM) T4 Free [0.76-1.46 ng/dL] 0.87 ng/dL (07/20/22 8:05 AM) AST [15-37 unit/L] 22 unit/L (07/20/22 8:06 AM) ALT [12-78 unit/L] 88 unit/L *HI* (07/20/22 8:06 AM) MCHC [29.0-37.5 g/dL] 34.5 g/dL (07/20/22 8:06 AM) Sodium Level [136-145 mmol/L] 142 mmol/L (07/20/22 8:06 AM) Lymph Absolute [0.8-5.8 x10^3/mcL] 1.2 x 10^3/mcL (07/20/22 8:06 AM) Hct [36.0-48.0 %] 41.1 % (07/20/22 8:06 AM) Calcium Level [8.5-10.1 mg/dL] 8.2 mg/dL *LOW* (07/20/22 8:06 AM) Beaufort Absolute [0.1-1.5 x10^3/mcL] 0.5 x1 0^3/mcL (07/20/22 8:06 AM) Albumin Level [3.4-5.0 g/dL] 3.2 g/dL *LOW* (07/20/22 8:06 AM) Protein Total [6.4-8.2 g/dL] 6.9 g/dL (07/20/22 8:06 AM) MCH [27.0-34.0 pg] 32.7 pg (07/20/22 8:06 AM) Neutro Absolute [1.5-8.1 x10^3/mcL] 4.0 x10^3/mcL (07/20/22 8:06 AM) Bilirubin Total [0.0-1.0 mg/dL] 0.7 mg/d L (07/20/22 8:06 AM) Hgb [12.0-16.0 g/dL] 14.2 g/dL (07/20/22 8:06 AM) Alk Phos [46-130 unit/L] 266 unit/L *HI* (07/20/22 8:06 AM) MPV [6.0-10.0 fL] 10.7 fL *HI* (07/20/22 8:06 AM) Platelets [150-450 K/mcL] 148 K/mcL *LOW* (07/20/22 8:06 AM) CO2 [21-32 mmol/L] 22 mmol/L (07/20/22 8:06 AM) Eos Absolute [0.0-0.5 x10^3/mcL] 0.2 x10 ^3/mcL (07/20/22 8:06 AM) GGT [5-55 unit/L] 324 unit/L *HI* (07/20/22 8:06 AM) eGFR Non-AA 40 *NA* (07/20/22 8:06 AM) eGFR AA 49 *NA* (07/20/22 8:06 AM) Chloride Level [97-107 mmol/L] 108 mmol/ L *HI* (07/20/22 8:06 AM) RDW-CV [11.5-15.0 %] 13.2 % (07/20/22 8:06 AM) Imm Gran Absolute [0.0-0.1 x10^3/mcL] 0. 0 x10^3/mcL (07/20/22 8:06 AM) Imm Gran Auto 0.2 % *NA* (07/20/22 8:06 AM) NRBC Auto 0.0 % *NA* (07/20/22 8:06 AM) NRBC Absolute [0.0-0.0 x10^3/mcL] 0.0 x1 0^3/mcL (07/20/22 8:06 AM) Creatinine Level [0.60-1.30 mg/dL] 1.52 mg/dL *HI* (07/20/22 8:06 AM) Anion Gap [5-15 mmol/L] 16 mmol/L *HI* (07/20/22 8:06 AM) Eos, Auto 3.2 % *NA* (07/20/22 8:06 AM) Social History Social History Type Response Tobacco Current everyday tob acco user Tobacco Use:. Sex Patient Care team information Care Team Personnel Name: Jessee Jones NP Position: Physician Member Role: Nurse Practitioner Address: Address: [address] [place] [address], [address] [place] [address]- Name: Latoya Marquez TOOLING SUPERVISOR Position: Physician Member Role: Nurse Practitioner Address: Address: [address] [place] [address]- Name: Leonila Gonzalez TOOLING SUPERVISOR Position: Physician Member Role: Nurse Practitioner Address: Address: [address] [place] [address]- Name: Beth Brandt TOOLING SUPERVISOR Position: Physician Member Role: Nurse Practitioner Address: Address: [address] [place] [address] Name: Hermes Ramirez MD Position: Physician Member Role: Informed Provider Address: Address: [address] [facility], [address] [place] [address]- Name: Pillo Moe TOOLING SUPERVISOR Position: Physician Member Role: Nurse Practitioner Address: Address: [address] [place] [address], [address] [facility] Care Team Related Persons Name: STACIA JONES Address: Home [address] [place], [place] [id number] Name: ROBYN JAMA Address: Home
--- OUTSIDE RECORDS SUMMARY | 2024-03-20 11:36 | XMS_ITS | Continuity of Care Document ---
Author Organization [facility] Address [address] [place] [address] Care Team Providers Care Sack Department Supervisor Name Role Phone Hermes Ramirez Primary Care Physician [phone] Encounter ONOFRE MCGRAW [id number] Date(s): 10/31/22 - 10/31/[address] [address]- [place] Encounter Diagnosis Headache, chronic migraine without aura, intractable(Discharge Diagnosis) - 10/31/22 Discharge Disposition: Home or [...] LC 04/07/22 * Stool Culture 04/07/22 * Urinalysis with Microscopic 10/31/22 * Urine Culture 10/31/22 * Clostridium difficile Amp 04/07/22 * Ova + Parasite Exam LC 04/07/22 Radiology* XR Shoulder Complete 2+ Views Right 07/04/22 Functional Status 10/31/22 Family Member Travel History No recent t [...] Daily, # 30 tab, 0 Refill(s), Pharmacy: [place], [place], 157, cm, 09/10/22 15:23:00 CDT, Height/Length [...] BID, # 60 cap, 0 Refill(s), Pharmacy: [place], [place], 157, cm, 09/10/22 15:23:00 CDT, Height/Length [...] Oral [35.8-37.3 Deg C] 36.9 Deg C (10/31/22 3:09 PM) Peripheral Pulse Rate [60-100 bpm] 67 bp m (10/31/22 4:29 PM) 62 bpm (10/31/22 3:09 PM) Respiratory Rate [12-24 br/min] 18 br/mi n (10/31/22 4:29 PM) 18 br/min (10/31/22 3:09 PM) Blood Pressure [90-140/60-90 mmHg] 131/8 4mmHg (10/31/22 3:09 PM) Weight Dosing 90.40 kg (10/31/22 3:25 PM) Weight Estimated 90.40 kg (10/31/22 3:09 PM) Height/Length Dosing 157.480 cm (10/31/22 3:25 PM) Height/Length Estimated 157.480 cm (10/31/22 3:09 PM) Social History Social History Type Response Tobacco Current everyday tob acco user Tobacco Use:. Sex Hospital Discharge Instructions Patient Education 10/31/2022 15:41:14 Chronic Migraine Headache, Xlvq-yb-[id number] Chronic Migraine Headache A migraine headache is [...] these instructions at home: Medicines ??? Take [id number] and prescription medicines only as told by [...] Headache and Migraine Patients (CHAMP): headachemigraine.org ??? [place] Migraine Foundation: americanmigrainefoundation.org ??? National Headache Foundation: [...] provider. Document Revised: 04/22/2020 Document Reviewed: 04/22/2020 [employer] Patient Education ?? 2022 [employer] Follow Up Care 10/31/2022 15:09:46 With:Follow up with primary care provider Address: When:5 to 7 days Physician Emergency department Note * Felicia Roach MD: PERFORM Event Display: ED Note Physician Authored Date: [id number] MISHA JACKSON :1980 Age:42 years Sex:Female Visit Date:10/31/2022 Primary Care Physician: Hermes Ramirez MD Basic Information Time Seen: Felicia Roach MD / 10/31/2022 15:34 Chief Complaint rt side headache states normal migraine took tylenol prehosp History Of Present Illness: 42-year-old female with multiple ER visits for frequent migraines, past medical history of 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 ??Similar characteristic migraines in the past. ??No other complaints Review of Systems: Constitutional:?No??fevers,?No??chills,?No??sweats Eye:?No??recent visual problems ENT:?No??ear pain,?No??nasal congestion,?No??sore throat Respiratory:?No??shortness of breath,?No??cough Cardiovascular:?No??Chest pain,?No??palpitations,?No??syncope Gastrointestinal:?Nonausea,?No??vomiting,?No??diarrhea Genitourinary:?No??hematuria Clemente/Lymph:?No??bruising tendency,?No??swollen lymph glands Endocrine:?No??excessive thirst,??No??excessive hunger Musculoskeletal:??No??back pain,??No??neck pain,??No??joint pain,??No??muscle pain,??No??decreased range of motion Integumentary:?No??rash,?No??pruritus,?No??abrasions Neurologic: Alert & oriented X 4 Psychiatric:?No??anxiety,?No??depression Physical Exam Vitals & Measurements T:??36.9?C ??(Oral)?? HR:??62??(Peripheral)?? RR:??18?? BP:??131/84?? SpO2:??99%?? HT:??157.480??cm?? WT:??90.40??kg??(Estimated)?? General: Alert and oriented, well nourished,?No??acute distress. ??Normotensive with a blood pressure 131/80 Eye: PERRL, EOMI,?Normal?conjunctiva HENT: Normocephalic, clear tympanic [...] affect Procedure No Qualifying Data Assessment/Plan 1.??Headache, chronic migraine without aura, intractable??G43.719 Follow-up with PCP Orders: Benadryl, 50 mg = 1 mL, IM, Injection, Once, First Dose: 10/31/22 16:00:00 CDT, Stop Date: 11/01/2315:00:00 CDT, Physician Stop, Routine morphine, 2 mg = 1 mL, IM, Injection, Once, First Dose: 10/31/22 16:00:00 CDT, Stop Date: 10/31/22 16:00:00 CDT, Physician Stop, Routine Phenergan, 25 mg = 1 mL, IM, Injection, Once, First Dose: 10/31/22 16:00:00 CDT, Stop Date: 10/31/22 16:00:00 CDT, Physician Stop, Routine Patient Discharge Condition Stable Discharge Disposition Discharged home Patient Education Chronic Migraine Headache, Yqgv-wn-[id number] Follow Up With When Contact Information Follow [...] pack a day. Family History Cancer: Mother. Attending Attestation Stable Electronically Signed on 10/31/22 03:41 PM Felicia Roach MD Patient Care team information Care Team Personnel Name: Jessee Jones SUPERVISOR PHOSPHATIC FERTILIZER Position: Physician Member Role: Nurse Practitioner Address: Address: [address] [place] [address], [address] Name: Latoya Marquez SUPERVISOR PHOSPHATIC FERTILIZER Position: Physician Member Role: Nurse Practitioner Address: Address: [address] [place] [address]- Name: Leonila Gonzalez SUPERVISOR PHOSPHATIC FERTILIZER Position: Physician Member Role: Nurse Practitioner Address: Address: [address] [place] [address]- Name: Beth Brandt NP Position: Physician Member Role: Nurse Practitioner Address: Address: [address] [place] [address] Name: Hermes Ramirez MD Position: Physician Member Role: Informed Provider Address: Address: [address] [facility], [address] [place] [address]- Name: Pillo Moe SUPERVISOR PHOSPHATIC FERTILIZER Position: Physician Member Role: Nurse Practitioner Address: Address: [address] [facility], [address] [facility] Name: Felicia Roach MD Position: Physician Member Role: Admitting Physician Address: Address: [address] [place], [place] [address] Name: Misty Cardenas RN Position: Nurse Member Role: Registered Nurse Care Team Related Persons Name: STACIA JONES Address: Home [address] [place], [place] [id number] Name: ROBYN JAMA Address: Home
--- OUTSIDE RECORDS SUMMARY | 2024-03-20 11:36 | XMS_ITS | Continuity of Care Document ---
Author Organization [facility] Address [address] [place] [address] Care Team Providers Care Machine Clothing Worker Name Role Phone Ashley Hermes Chris Primary Care Physician Encounter ONOFRE MCGRAW [id number] Date(s): 05/12/21 - 05/12/[address] [address] Encounter Diagnosis Migraine(Discharge Diagnosis) - 05/12/21 Discharge Disposition: Home or Self Care Attending Physician: Manjinder Bradley MD Admitting Physician: Manjinder Bradley MD Allergies, Adverse Reactions, Alerts Substance Reaction Severity Status gentamicin Moderate Active erythromycin Medication interaction Activ e aspirin Medication interaction Activ e Toradol Kidney failure as a complication of care Active NSAIDs Severe Active Assessment and Plan Future Appointments Functional Status 05/12/21 Other exposure to Infectious Disease Non e [...] Refill(s) Start Date: 04/05/21 Status: Ordered Benadryl 25 mg = 0.5 mL, Slow IV Push, Once, 0 Refill(s) Start Date: 04/07/21 Status: Ordered Benadryl 50 mg = 1 mL, Slow IV Push, Once, 0 Refill(s) Start Date: 04/11/21 Status: Ordered butalbital/acetaminophen/caffeine 50 mg-325 mg-40 mg oral tablet 1 tab, Oral, every 4 hr, 0 Refill(s) Start Date: 08/18/20 Status: Ordered CellCept 250 mg =, Oral, BID, 0 Refill(s) Start Date: 07/01/20 Status: Ordered Dilaudid 0.5 mg = 0.5 mL, Slow IV Push, Once, 0 Refill(s) Start Date: 04/07/21 Status: Ordered gabapentin 300 mg oral capsule [...] BID, # 180 tab, 3 Refill(s), Pharmacy: [place], [place], [address], cm, 10/22/20 21:26:00 CDT, Height/Length Dosing, 74, kg, 10/22/20 21:26:00 CDT, Weight Dosing Start Date: 12/18/20 Status: Ordered morphine 4 mg/mL preservative-free injectable solution 4 mg = 1 mL, Slow IV Push, Once, 0 Refill(s) Start Date: 04/11/21 Status: Ordered Pepcid 20 mg oral tablet 20 mg = 1 tab, Oral, BID, 0 Refill(s) Start Date: 09/29/20 Status: Ordered Phenergan 25 mg = 1 mL, IM, Once, 0 Refill(s) Start Date: 04/07/21 Status: Ordered Phenergan 25 mg = 1 mL, IM, Once, 0 Refill(s) Start Date: 04/11/21 Status: Ordered Multivitamins with Vitamin B Complex, Vitamin C, Minerals and L- Methylfolate oral capsule 1 cap, Oral, Daily, # 30 cap, 0 Refill(s) Start Date: 04/05/21 Status: Ordered tacrolimus 1 mg oral capsule, extended release 1 mg = 1 cap, Oral, Daily, 0 Refill(s) Start Date: 09/29/20 Status: Ordered traZODone 150 mg oral tablet [...] Chronic paronychia of finger(Confirmed) Active Thrombocytopenia(Confirmed) Active Lab test positive for detect ion [...] [35.8-37.3 Deg C] 37 De g C (05/12/21 4:25 PM) Peripheral Pulse Rate [60-100 bpm] 109 b pm *HI* (05/12/21 4:25 PM) Respiratory Rate [12-24 br/min] 18 br/mi n (05/12/21 5:28 PM) 18 br/min (05/12/21 4:25 PM) Blood Pressure [90-140/60-90 mmHg] 151/9 0mmHg *HI* (05/12/21 4:25 PM) Weight 77.11 kg (05/12/21 4:25 PM) Weight Dosing 77.11 kg (05/12/21 5:20 PM) Height 157.480 cm (05/12/21 4:25 PM) Height/Length Dosing 157.480 cm (05/12/21 5:20 PM) Body Mass Index Estimated 31 (05/12/21 4:25 PM) Social History Social History Type Response Smoking Status 5-9 cigarettes (betw een 1/4 to 1/2 pack)/day in last 30 days entered on: 05/12/21 Sex Hospital Discharge Instructions Patient Education 05/12/2021 17:06:40 Migraine Headache Migraine Headache A migraine headache [...] these instructions at home: Medicines ??? Take qtos-grj-ucapqvu and prescription medicines only as told by your health care provider. ??? Ask your health care provider if the medicine prescribed to you: ??? Requires you to avoid driving or using heavy machinery. ??? Can cause constipation. You may need to take these actions to prevent or treat constipation: ??? Drink enough fluid to keep your urine pale yellow. ??? Take noyh-nbi-yjzcvmw or prescription medicines. ??? Eat foods that [...] provider. Document Revised: 06/28/2019 Document Reviewed: 04/18/2019 [employer] Patient Education ?? 2020 [employer] Follow Up Care 05/12/2021 16:25:43 With:Hermes Ramirez MD Address: [address] [place] [address], [address] [place] [address]- When:24 Hours
--- OUTSIDE RECORDS SUMMARY | 2024-03-20 11:36 | XMS_ITS | Continuity of Care Document ---
Author Organization [facility] Address [address] [place] [address] Care Team Providers Care Rn Clinician Name Role Phone Hermes Ramirez Primary Care Physician Encounter RANDY MCGRAW [id number] Date(s): 10/31/23 - 10/31/23 [address] [address] [place] [address] [place] Discharge Disposition: Home or Self Care Attending Physician: Greta Paul DO Admitting Physician: Greta Paul DO Referring Physician: Greta Pual DO Allergies, Adverse Reactions, Alerts Substance Reaction Severity Status codeine Unknown Itching Severe Active gentamicin Moderate Active erythromycin Medication interaction Activ e NSAIDs Severe Active azithromycin Unknown Severe Active aspirin Medication interaction Severe Activ e morphine 1 redness Itching Mild Active Toradol Kidney failure as a complication of care Severe Active 1localized reaction at iv site Assessment and Plan Future Appointments Diagnostic Tests Pending * Prot+CreatU (Random) LC 10/31/23 Future Scheduled Tests Radiology* MG Mammo Diagnostic [...] Daily, # 30 tab, 11 Refill(s), Pharmacy: [place], [place], [address], cm, 01/04/23 15:03:00 CDT, Height/Length Dosing, 81.65, kg, 01/04/23 15:03:00 CDT, Weight Dosing Start Date: 01/11/23 Status: Ordered aspirin 81 mg oral delayed release tablet 81 mg = 1 tab, Oral, Daily, # 30 tab, 0 Refill(s) Start Date: 04/05/21 Status: Ordered gabapentin 300 mg oral capsule 600 mg = 2 cap, Oral, BID, # 120 cap, 2 Refill(s), Pharmacy: [facility] [place], 157.[address], cm, 07/23/23 17:59:00 CDT, Height, 88.45, [...] BID, # 60 cap, 11 Refill(s), Pharmacy: [place], [place], [address], cm, 01/04/23 15:03:00 CDT, Height/Length Dosing, 81.65, kg, 01/04/23 15:03:00 CDT, Weight Dosing Start Date: 01/11/23 Status: Ordered Nicotrol Inhaler 10 mg inhalation device See Instructions, 6-16 cartriges/day, # 1 EA, 2 Refill(s), Pharmacy: [id number], 157.[address], cm, 08/29/23 14:22:00 CDT, Height, 88, kg, 08/29/23 14:27:00 CDT, Weight Dosing Start Date: 08/29/23 Status: Ordered pantoprazole 40 mg oral delayed release tablet 1 tab, Oral, Daily, # 90 tab, 0 Refill(s), Pharmacy: [id number], 157.[address], cm, 06/07/23 16:07:00 CDT, Height, 89.36, [...] QID, # 360 tab, 0 Refill(s), Pharmacy: [id number], 157.48, cm, 08/29/23 14:22:00 CDT, Height, 88, kg, 08/29/23 14:27:00 CDT, Weight Dosing Start Date: 09/05/23 Status: Ordered venlafaxine 37.5 mg oral capsule, extended release 37.5 mg = 1 cap, Oral, Daily, # 90 cap, 0 Refill(s), Pharmacy: [id number]- [place], 157.[address], cm, 08/29/23 14:22:00 CDT, Height, [...] 2normal 3normal Results Laboratory List Name Date .Urine Volume 10/31/23 Urinalysis Microscopic 10/31/23 Urinalysis with Culture if Indicated 10/18 06/10 Most recent to oldest [Reference Range]: 1 UA Color Yellow (10/31/23 7:42 AM) UA WBC [0-5] None (10/31/23 7:42 AM) UA Urobilinogen [Normal mg/dL] Normal mg /dL (10/31/23 7:42 AM) UA Bili [Negative mg/dL] Negative mg/dL (10/31/23 7:42 AM) UA Ketones [Negative mg/dL] Negative mg/ dL (10/31/23 7:42 AM) UA RBC [0-3] None (10/31/23 7:42 AM) UA Leuk Est [Negative Guille/mcL] Negative Guille/mcL (10/31/23 7:42 AM) UA Nitrite [Negative] Negative (10/31/23 7:42 AM) UA Glucose [Normal mg/dL] Normal mg/dL (10/31/23 7:42 AM) UA Bacteria [None Seen] Occasional (10/31/23 7:42 AM) UA Protein [Negative mg/dL] Negative mg/ dL (10/31/23 7:42 AM) UA Blood [Negative Rocael/mcL] Negative Rocael /mcL (10/31/23 7:42 AM) UA Mucous [None Seen] None Seen (10/31/23 7:42 AM) UA Spec Grav 1.010 (10/31/23 7:42 AM) UA Squam Epithelial [None Seen] Occasion al (10/31/23 7:42 AM) UA pH [5.0-9.0] 6.0 (10/31/23 7:42 AM) UA Appear [Clear] Clear (10/31/23 7:42 AM) UA Culture Ind?. Not Indicated (10/31/23 7:42 AM) Urine Srce Clean Catch (10/31/23 7:42 AM) Urine Volume 12 mL (10/31/23 7:42 AM) UA Yeast [None Seen] None Seen (10/31/23 7:42 AM) Social History Social History Type Response Tobacco Current everyday tob acco user Tobacco Use:. Sex Patient Care team information Care Team Personnel Name: Jessee Jones RECORDER HELPER SEISMOGRAPH Position: Physician Member Role: Nurse Practitioner Address: Address: [address] [place] [address] Name: Latoya Marquez RECORDER HELPER SEISMOGRAPH Position: Physician Member Role: Nurse Practitioner Address: Address: [address] [place] [address] Name: Leonila Gonzalez RECORDER HELPER SEISMOGRAPH Position: Physician Member Role: Nurse Practitioner Address: Address: [address] [place] [address] Name: Beth Brandt RECORDER HELPER SEISMOGRAPH Position: Physician Member Role: Nurse Practitioner Address: Address: [address] [place] [address] Name: Hermes Ramirez MD Position: Physician Member Role: Informed Provider Address: Address: [address] [place] [address], [facility] [address] Name: Pillo Moe RECORDER HELPER SEISMOGRAPH Position: Physician Member Role: Nurse Practitioner Address: Address: [address] [place] [address], [address] [facility] Care Team Related Persons Name: STACIA JONES Address: Home [address] [id number] Name: ROBYN JAMA Name: NAIF CHOI Name: MADY CHEN Name: MADY CHEN
--- OUTSIDE RECORDS SUMMARY | 2024-03-20 11:36 | XMS_ITS | Continuity of Care Document ---
Author Organization [facility] Address [address] [place] [address] Care Team Providers Care Duplicate Maker Name Role Phone Hermes Ramirez Primary Care Physician Encounter ONOFRE MCGRAW [id number] Date(s): 10/31/22 - 10/31/[address] [address] [place] Discharge Disposition: Home or Self Care Attending Physician: Lida Spence MD Admitting Physician: Liad Spence MD Allergies, Adverse Reactions, Alerts Substance Reaction Severity Status codeine Unknown Itching Severe Active gentamicin Moderate Active erythromycin Medication interaction Activ e azithromycin Unknown Severe Active aspirin Medication interaction Severe Activ e Toradol Kidney failure as a complication of care Severe Active NSAIDs Severe Active Assessment and Plan Diagnostic Tests Pending * Urine Culture 10/31/22 Future Scheduled Tests Laboratory* Giardia lamblia Ag, [...] Daily, # 30 tab, 0 Refill(s), Pharmacy: [place], [place], [address], cm, 09/10/22 15:23:00 CDT, Height/Length [...] BID, # 60 cap, 0 Refill(s), Pharmacy: [place], [place], [address], cm, 09/10/22 15:23:00 CDT, Height/Length [...] Results Laboratory List Name Date .Urine Volume 10/31/22 Urinalysis Microscopic 10/31/22 Urinalysis with Microscopic 10/31/22 Most recent to oldest [Reference Range]: 1 UA Color Yellow (10/31/22 2:55 PM) UA WBC [0-5] 0-5 (10/31/22 2:55 PM) UA Urobilinogen [Normal mg/dL] Normal mg /dL (10/31/22 2:55 PM) UA Bili [Negative mg/dL] Negative mg/dL (10/31/22 2:55 PM) UA Ketones [Negative mg/dL] Negative mg/ dL (10/31/22 2:55 PM) UA RBC [0-3] 0-3 (10/31/22 2:55 PM) UA Leuk Est [Negative Guille/mcL] Negative Guille/mcL (10/31/22 2:55 PM) UA Nitrite [Negative] Negative (10/31/22 2:55 PM) UA Glucose [Normal mg/dL] Normal mg/dL (10/31/22 2:55 PM) UA Bacteria [None Seen] Many *ABN* (10/31/22 2:55 PM) UA Protein [Negative mg/dL] Negative mg/ dL (10/31/22 2:55 PM) UA Blood [Negative Rocael/mcL] Negative Rocael /mcL (10/31/22 2:55 PM) UA Mucous [None Seen] Many *ABN* (10/31/22 2:55 PM) UA Spec Grav 1.010 (10/31/22 2:55 PM) UA Squam Epithelial [None Seen] Many *ABN* (10/31/22 2:55 PM) UA pH [5.0-9.0] 6.0 (10/31/22 2:55 PM) UA Appear [Clear] Hazy (10/31/22 2:55 PM) UA Culture Ind?. N/A *NA* (10/31/22 2:55 PM) Urine Srce Clean Catch (10/31/22 2:55 PM) UA Amorph Moderate (10/31/22 2:55 PM) Urine Volume 12 mL (10/31/22 2:55 PM) UA Yeast [None Seen] None Seen (10/31/22 2:55 PM) Social History Social History Type Response Tobacco Current everyday tob acco user Tobacco Use:. Sex Patient Care team information Care Team Personnel Name: Jessee Jones REGISTERED NURSE PRACTITIONER Position: Physician Member Role: Nurse Practitioner Address: Address: [address] [place] [address], [address] Name: Latoya Marquez REGISTERED NURSE PRACTITIONER Position: Physician Member Role: Nurse Practitioner Address: Address: [address] [place] [address]- Name: Leonila Gonzalez REGISTERED NURSE PRACTITIONER Position: Physician Member Role: Nurse Practitioner Address: Address: [address] [place] [address]- Name: Beth Brandt REGISTERED NURSE PRACTITIONER Position: Physician Member Role: Nurse Practitioner Address: Address: [address] [place] [address] [place] [address] Name: Hermes Ramirez MD Position: Physician Member Role: Informed Provider Address: Address: [address] [place] [address], [address] [place] [address]- Name: Pillo Moe REGISTERED NURSE PRACTITIONER Position: Physician Member Role: Nurse Practitioner Address: Address: [address] [place] [address], [address] [facility] Care Team Related Persons Name: STACIA JONES Address: Home [address] [place], [place] [id number] Name: ROBYN JAMA Address: Home
--- OUTSIDE RECORDS SUMMARY | 2024-03-20 11:36 | XMS_ITS | Continuity of Care Document ---
Author Organization [facility] Address [address] [place] [address] Care Team Providers Care Toaster Operator Name Role Phone Hermes Ramirez Primary Care Physician [phone] Encounter [facility] [id number] Date(s): 07/12/23 - 07/12/[address] [address] [place] Encounter Diagnosis Acute back pain(Discharge Diagnosis) - 07/12/23 Discharge Disposition: Home or Self Care Attending [...] Plan Future Appointments Future Scheduled Tests Laboratory* Urinalysis with Microscopic 10/31/22 * Urine Culture 04/06/23 * Urine Culture 10/31/22 Radiology* MG Mammo Diagnostic Bilateral w/ Chad 08/24/23 * US Breast Limited Left 08/24/23 Functional Status 07/12/23 Other exposure to Infectious Disease Non e [...] Daily, # 30 tab, 11 Refill(s), Pharmacy: [place], [place], [address], cm, 01/04/23 15:03:00 CDT, Height/Length Dosing, 81.65, kg, 01/04/23 15:03:00 CDT, Weight Dosing Start Date: 01/11/23 Status: Ordered aspirin 81 mg oral delayed release tablet 81 mg = 1 tab, Oral, Daily, # 30 tab, 0 Refill(s) Start Date: 04/05/21 Status: Ordered clindamycin 300 mg oral capsule 300 mg = 1 cap, Oral, every 8 hr, # 30 cap, 0 Refill(s), 07/16/23 12:27:00 PM CDT, Pharmacy: [id number], 157.[address], cm, 07/06/23 12:12:00 CDT, Height, 89.36, kg, 07/06/23 12:21:00 CDT, Weight Dosing Start Date: 07/06/23 Stop Date: 07/16/23 Status: Ordered gabapentin 300 mg oral capsule [...] BID, # 60 cap, 11 Refill(s), Pharmacy: [facility] [place], 157.[address], cm, 01/04/23 15:03:00 CDT, Height/Length Dosing, 81.65, kg, 01/04/23 15:03:00 CDT, Weight Dosing Start Date: 01/11/23 Status: Ordered pantoprazole 40 mg oral delayed release tablet 1 tab, Oral, Daily, # 90 tab, 0 Refill(s), Pharmacy: [id number], 157.48, cm, 06/07/23 16:07:00 CDT, Height, 89.36, [...] # 360 tab, 0 Refill(s), Pharmacy: [id number], 157.48, cm, 06/07/23 16:07:00 CDT, Height, 89.36, [...] cervical Confirmed Active Difficulty sleeping Confirmed Active Boil of groin Confirmed Active Gout Confirmed Active History of [...] [35.8-37.3 Deg C] 37 De g C (07/12/23 3:38 AM) Peripheral Pulse Rate [60-100 bpm] 105 b pm *HI* (07/12/23 3:38 AM) Respiratory Rate [12-24 br/min] 16 br/mi n (07/12/23 3:38 AM) Blood Pressure [90-140/60-90 mmHg] 160/9 8mmHg *HI* (07/12/23 3:38 AM) Mean Arterial Pressure, Cuff [65-140 mmH g] 119 mmHg (07/12/23 3:38 AM) Weight 81.65 kg (07/12/23 3:38 AM) Weight Dosing 81.650 kg (07/12/23 3:38 AM) Height 157.48 cm (07/12/23 3:38 AM) Body Mass Index 32.92 kg/m2 (07/12/23 3:38 AM) Social History Social History Type Response Tobacco Current everyday tob acco user Tobacco Use:. 1 Sex 1Pt states that she smokes half a pack a day. Hospital Discharge Instructions Patient Education 07/12/2023 03:58:27 Acute Back Pain, Adult Acute Back Pain Acute back pain is sudden and usually short-lived. It is often caused by an injury to the muscles and tissues in the back. The injury may result from: ??? A muscle, tendon, or ligament getting overstretched or torn. Ligaments are tissues that connectbones to each other. Lifting something improperly can cause a back strain. ??? Wear and tear (degeneration) of the spinal disks. Spinal disks are circular tissue that providecushioning between the bones of the spine (vertebrae). ??? Twisting motions, such as while playing sports or doing yard work. ??? A hit to the back. ??? Arthritis. You may have a physical exam, lab tests, and imaging tests to find the cause of your pain. Acute back pain usually goes away with rest and home care. Follow these instructions at home: Managing pain, stiffness, and swelling ??? Take bmms-tuk-qbcgljb and prescription medicines only as told by your health care provider. Treatment may include medicines for pain and inflammation that are taken by mouth or applied to the skin, or muscle relaxants. ??? Your health care provider may recommend applying ice during the first 24???48 hours after your pain starts. To do this: ??? Put ice in [...] of damage to the area. ??? If directed, apply heat to the [...] have a greater risk of getting burned. Activity ??? Do not stay in bed. Staying in bed for more than 1???2 days can delay your recovery. ??? Sit up and stand up straight. Avoid leaning forward when you sit or hunching over when you stand. ??? If you work at a desk, sit close to it so you do not need to lean over. Keep your chin tucked in. Keep your neck drawn back, and keep your elbows bent at a 90-degree angle (right angle). ??? Sit high and close to the steering wheel when you drive. Add lower back (lumbar) support to your car seat, if needed. ??? Take short walks on even surfaces as soon as you are able. Try to increase the length of time you walk each day. ??? Do not sit, drive, or welder setter resistance machine one place for more than 30 minutes at a time. Sitting or standing for long periods of time can put stress on your back. ??? Do not drive or use heavy machinery while taking prescription pain medicine. ??? Use proper lifting techniques. When you bend and lift, use positions that put less stress on your back: ??? Bend your knees. ??? Keep the load close to your body. ??? Avoid twisting. ??? Exercise regularly as told by your health care provider. Exercising helps your back heal fasterand helps prevent back injuries by keeping muscles strong and flexible. ??? Work with a physical therapist to make a safe exercise program, as recommended by your health care provider. Do any exercises as told by your physical therapist. Lifestyle ??? Maintain a healthy weight. Extra weight puts stress on your back and makes it difficult to havegood posture. ??? Avoid activities or situations that make you feel anxious or stressed. Stress and anxiety increase muscle tension and can make back pain worse. Learn ways to manage anxiety and stress, such as through exercise. General instructions ??? Sleep on a firm mattress in a comfortable position. Try lying on your side with your knees slightly bent. If you lie on your back, put a pillow under your knees. ??? Keep your head and neck in a straight line with your spine (neutral position) when using electronic equipment like smartphones or pads. To do this: ??? Raise your smartphone or pad to look at it instead of bending your head or neck to look down. ??? Put the smartphone or pad at the level of your face while looking at the screen. ??? Follow your treatment plan as told by your health care provider. This may include: ??? Cognitive or behavioral therapy. ??? Acupuncture or massage therapy. ??? Meditation or yoga. Contact a health care provider if: ??? You have pain that is not relieved with rest or medicine. ??? You have increasing pain going down into your legs or buttocks. ??? Your pain does not improve after 2 weeks. ??? You have pain at night. ??? You lose weight without trying. ??? You have a fever or chills. ??? You develop nausea or vomiting. ??? You develop abdominal pain. Get help right away if: ??? You develop new bowel or bladder control problems. ??? You have unusual weakness or numbness in your arms or legs. ??? You feel faint. These symptoms may represent a serious problem that is an emergency. Do not wait to see if the symptoms will go away. Get medical help right away. Call your local emergency services (911 in the [place] Do not drive yourself to the hospital. Summary ??? Acute back pain is sudden and usually short-lived. ??? Use proper lifting techniques. When you bend and lift, use positions that put less stress on your back. ??? Take werl-ocr-mhblkec and prescription medicines only as told by your health care provider, andapply heat or ice as told. This information is not intended to replace advice given to you by your health care provider. Make sure you discuss any questions you have with your health care provider. Document Revised: 05/28/2021 Document Reviewed: 05/28/2021 [employer] Patient Education ?? 2022 [employer]. Follow Up Care 07/12/2023 03:32:20 With:Follow up with primary care provider Address:Unknown When:3 to 5 days Patient Care team information Care Team Personnel Name: Jessee Jones BAGGAGE AGENT SUPERVISOR Position: Physician Member Role: Nurse Practitioner Address: Address: [address] [place] [address], [address] Name: Latoya Marquez BAGGAGE AGENT SUPERVISOR Position: Physician Member Role: Nurse Practitioner Address: Address: [address] Name: Leonila Gonzalez BAGGAGE AGENT SUPERVISOR Position: Physician Member Role: Nurse Practitioner Address: Address: [address] Name: Beth Brandt BAGGAGE AGENT SUPERVISOR Position: Physician Member Role: Nurse Practitioner Address: Address: [address] Name: Hermes Ramirez MD Position: Physician Member Role: Informed Provider Address: Address: [address] [facility], [address] Name: Pillo Moe BAGGAGE AGENT SUPERVISOR Position: Physician Member Role: Nurse Practitioner Address: Address: [address] [facility], [address] [facility] Care Team Related Persons Name: STACIA JONES Address: Home [address] [id number] Name: MADY CHEN Name: MADY CHEN
--- OUTSIDE RECORDS SUMMARY | 2024-03-20 11:36 | XMS_ITS | Continuity of Care Document ---
Author Organization [facility] Address [address] [place] [address] Care Team Providers Care Daytime Caregiver Name Role Phone Hermes Ramirez Primary Care Physician Encounter [facility] [id number] Date(s): 01/17/24 - 01/17/24 [place] [address] [place] [address]- us Discharge Disposition: Home or Self Care Attending Physician: Sandy Anne MD Admitting Physician: Sandy Anne MD Referring Physician: Sandy Anne MD Allergies, Adverse Reactions, Alerts Substance Criticality [...] Daily, # 30 tab, 11 Refill(s), Pharmacy: [facility], [place], 157.48, cm, 01/04/23 15:03:00 CDT, Height/Length Dosing, 81.65, kg, 01/04/23 15:03:00 CDT, Weight Dosing Start Date: 01/11/23 Status: Ordered amoxicillin 875 mg oral tablet 875 mg = 1 tab, Oral, BID, # 14 tab, 0 Refill(s), [facility]acy: [id number], 157.48, cm, 01/01/24 14:49:00 CDT, Height, [...] BID, # 120 cap, 2 Refill(s), [facility]acy: [id number], 157.48, cm, 07/23/23 17:59:00 CDT, Height, [...] Daily, # 14 patches, 1 Refill(s), [facility]: [id number], 157.48, cm, 01/01/24 14:49:00 CDT, Height, 87.09, kg, 01/01/24 14:53:00 CDT, Weight Dosing Start Date: 01/01/24 Status: Ordered Nicotrol Inhaler 10 mg inhalation device See Instructions, 6-16 cartriges/day, # 1 EA, 2 Refill(s), [facility]acy: [id number], 157.48, cm, 08/29/23 14:22:00 CDT, Height, 88, kg, 08/29/23 14:27:00 CDT, Weight Dosing Start Date: 08/29/23 Status: Ordered pantoprazole 40 mg oral delayed release tablet 1 tab, Oral, Daily, # 90 tab, 0 Refill(s), [facility]: [id number], 157.48, cm, 06/07/23 16:07:00 CDT, Height, 89.36, [...] QID, # 360 tab, 0 Refill(s), [id number], 157.48, cm, 08/29/23 14:22:00 CDT, Height, 88, kg, 08/29/23 14:27:00 CDT, Weight Dosing Start Date: 09/05/23 Status: Ordered venlafaxine 37.5 mg oral capsule, extended release 37.5 mg = 1 cap, Oral, Daily, # 90 cap, 0 Refill(s), [facility]acy: [id number], 157.48, cm, 09/28/23 18:18:00 CDT, Height, 81.65, [...] 2normal 3normal Results Laboratory List Name Date Automated Diff 01/17/24 CBC w/ Diff 01/17/24 Comprehensive Metabolic Panel 01/17/24 PT/ INR 01/17/24 Most recent to oldest [Reference Range]: 1 WBC [4.0-11.5 K/mcL] 8.1 K/mcL (01/17/24 6:34 AM) RBC [4.20-5.40 x10^6/mcL] 3.51 x10^6/mcL *LOW* (01/17/24 6:34 AM) Neutro Auto 73.4 % *NA* (01/17/24 6:34 AM) Lymph Auto 18.2 % *NA* (01/17/24 6:34 AM) [place] Auto 5.9 % *NA* (01/17/24 6:34 AM) Basophil Auto 0.1 % *NA* (01/17/24 6:34 AM) Prothrombin Time [9.7-11.7 seconds] 11.3 seconds (01/17/24 6:34 AM) INR 1.1 1 *NA* (01/17/24 6:34 AM) BUN [7-18 mg/dL] 24 mg/dL *HI* (01/17/24 6:34 AM) Glucose Level [70-110 mg/dL] 110 mg/dL (01/17/24 6:34 AM) Potassium Level [3.5-5.1 mmol/L] 3.8 mmo l/L (01/17/24 6:34 AM) Baso Absolute [0.0-0.1 x10^3/mcL] 0.0 x1 0^3/mcL (01/17/24 6:34 AM) MCV [78.0-100.0 fL] 102.3 fL *HI* (01/17/24 6:34 AM) AST [15-37 unit/L] 17 unit/L (01/17/24 6:34 AM) ALT [12-78 unit/L] 27 unit/L (01/17/24 6:34 AM) MCHC [29.0-37.5 g/dL] 34.3 g/dL (01/17/24 6:34 AM) Sodium Level [136-145 mmol/L] 143 mmol/L (01/17/24 6:34 AM) Lymph Absolute [0.8-5.8 x10^3/mcL] 1.5 x 10^3/mcL (01/17/24 6:34 AM) Hct [36.0-48.0 %] 35.9 % *LOW* (01/17/24:34 AM) Calcium Level [8.5-10.1 mg/dL] 8.5 mg/dL (01/17/24 6:34 AM) [place] Absolute [0.1-1.5 x10^3/mcL] 0.5 x1 0^3/mcL (01/17/24 6:34 AM) Albumin Level [3.4-5.0 g/dL] 3.1 g/dL *LOW* (01/17/24 6:34 AM) Protein Total [6.4-8.2 g/dL] 6.1 g/dL *LOW* (01/17/24 6:34 AM) MCH [27.0-34.0 pg] 35.0 pg *HI* (01/17/24 6:34 AM) Neutro Absolute [1.5-8.1 x10^3/mcL] 5.9 x10^3/mcL (01/17/24 6:34 AM) Bilirubin Total [0.0-1.0 mg/dL] 0.5 mg/d L (01/17/24 6:34 AM) Hgb [12.0-16.0 g/dL] 12.3 g/dL (01/17/24 6:34 AM) Alk Phos [46-130 unit/L] 213 unit/L *HI* (01/17/24 6:34 AM) MPV [6.0-10.0 fL] 10.5 fL *HI* (01/17/24 6:34 AM) Platelets [150-450 K/mcL] 126 K/mcL *LOW* (01/17/24 6:34 AM) CO2 [21-32 mmol/L] 20 mmol/L *LOW* (01/17/24 6:34 AM) Eos Absolute [0.0-0.5 x10^3/mcL] 0.2 x10 ^3/mcL (01/17/24 6:34 AM) Chloride Level [97-107 mmol/L] 112 mmol/ L *HI* (01/17/24 6:34 AM) RDW-CV [11.5-15.0 %] 13.4 % (01/17/24 6:34 AM) Imm Gran Absolute [0.0-0.1 x10^3/mcL] 0. 0 x10^3/mcL (01/17/24 6:34 AM) Imm Gran Auto 0.5 % *NA* (01/17/24 6:34 AM) NRBC Auto 0.0 % *NA* (01/17/24 6:34 AM) NRBC Absolute [0.0-0.0 x10^3/mcL] 0.0 x1 0^3/mcL (01/17/24 6:34 AM) Slide Review Not Indicated (01/17/24 6:34 AM) Creatinine Level [0.60-1.30 mg/dL] 1.77 mg/dL 2 *HI* (01/17/24 6:34 AM) Anion Gap [5-15 mmol/L] 15 mmol/L (01/17/24 6:34 AM) Eos, Auto 1.9 % *NA* (01/17/24 6:34 AM) eGFR CKD-EPI 37 mL/min/1.73 m2 *NA* (01/17/24 6:34 AM) 1Interpretive Data: INR Interpretation Treatment or prophylaxis Suggested therapeutic against: range: Venous thrombosis 2.0 - 3.0 Pulmonary embolus 2.0 - 3.0 Systemic embolism 2.0 - 3.0 Tissue heart valves 2.0 -3.0 AMI (To prevent systemic 2.0 - 3.0 embolism) Valvular heart disease 2.0 - 3.0 Atrial fibrillation 2.0 - 3.0 Bi-leaflet mechanical valve 2.0 -3.0 in aortic position Mechanical prosthetic valves 2.5 - 3.5 Certain patients with thrombosis >2.0 - 3.0 and the antiphospholipid syndrome 2Interpretive Data: Association of GFR and staging of [...] information Care Team Personnel Name: Jessee Jones PORTABLE TRACK LINE MARKER Position: Physician Member Role: Nurse Practitioner Address: [address] [facility], [address] Name: Latoya Marquez PORTABLE TRACK LINE MARKER Position: Physician Member Role: Nurse Practitioner Address: [address] Name: Leonila Gonzalez PORTABLE TRACK LINE MARKER Position: Physician Member Role: Nurse Practitioner Address: [address] [place] [address] Name: Beth Brandt PORTABLE TRACK LINE MARKER Position: Physician Member Role: Nurse Practitioner Address: [address] [place] [address] Name: Hermes Ramirez MD Position: Physician Member Role: Informed Provider Address: [address] [facility], [address] Name: Pillo Moe NP Position: Physician Member Role: Nurse Practitioner Address: [address] [place] [address], [facility] [place] [address] [facility] Care Team Related Persons Name: STACIA JONES Name: NAIF CHOI Name: MADY CHEN Name: MADY CHEN Insurance Providers Guarantor name: MISHA JACKSON Health Plan Information #: 2 Payer: [employer] AP[employer]OVED Member Number: [id number] Policy Number: Health Plan Information #: 1 Payer: [facility] MEDICAID MGD CARE Member Number: [id number] Policy Number: MAGGIE Health Plan Information #: 3 Payer: MISC Workers Comp Member Number: MAGGIE Policy Number: NA
--- OUTSIDE RECORDS SUMMARY | 2024-03-20 11:36 | XMS_ITS | Continuity of Care Document ---
Author Organization [facility] Address [address] [place] [address] Care Team Providers Care Product Promoter Sales Person Name Role Phone Hermes Ramirez Primary Care Physician Encounter [facility] [id number] Date(s): 06/07/23 - 06/07/[address] [address]- Encounter Diagnosis Acute migraine(Discharge Diagnosis) - 06/07/23 Acute abdominal pain(Discharge Diagnosis) - 06/07/23 Discharge Disposition: Home or Self Care Attending Physician: Daron Acuna MD Admitting Physician: [...] from: Title:ED Provider Note Author:Daron Acuna MD Date:06/07/23 Assessment/Plan Acute abdominal pain??R10.9 -XRay and urinalysis wnl -Discussed taking tylenol and to return if pain worsens, fever or chills or she can't tolerate any PO. Pt agrees with the plan. Acute migraine??G43.909 -Zofran 8 mg PO and Morphine 1 mg IM given -Stressed that pt needs to see neurologist or pcp for future visits as I will NOT BE GIVING ANY MORE NARCOTICS since she has 4 visits alone this month. Pt agrees to see neurologist or PCP for future migraines. Patient Discharge Condition stable Discharge Disposition home Patient Education Migraine Headache Follow Up With When Contact Information Follow up with primary care provider Within 2 to 4 days Additional Instructions: Future Appointments Future Scheduled Tests Laboratory* Urinalysis with Microscopic 8/14/23 * Urine Culture 04/06/23 * Urine Culture [...] Daily, # 30 tab, 11 Refill(s), Pharmacy: [place], [place], 157.48, cm, 01/04/23 15:03:00 CDT, Height/Length [...] BID, # 60 cap, 11 Refill(s), Pharmacy: [facility], [place], 157.48, cm, 01/04/23 15:03:00 CDT, Height/Length Dosing, 81.65, kg, 01/04/23 15:03:00 CDT, Weight Dosing Start Date: 01/11/23 Status: Ordered Pepcid 20 mg oral tablet [...] 1normal 2normal Results Laboratory List Name Date .Urine Volume 06/07/23 Urinalysis Microscopic 06/07/23 Urinalysis with Culture if Indicated 05/19 Most recent to oldest [Reference Range]: 1 UA Color Yellow (06/07/23 5:05 PM) UA WBC [0-5] 0-5 (06/07/23 5:05 PM) UA Urobilinogen [Normal mg/dL] Normal mg /dL (06/07/23 5:05 PM) UA Hyal Cast 0-2 (06/07/23 5:05 PM) UA Bili [Negative mg/dL] Negative mg/dL (06/07/23 5:05 PM) UA Ketones [Negative mg/dL] Negative mg/ dL (06/07/23 5:05 PM) UA RBC [0-3] 0-3 (06/07/23 5:05 PM) UA Leuk Est [Negative Guille/mcL] Negative Guille/mcL (06/07/23 5:05 PM) UA Nitrite [Negative] Negative (06/07/23 5:05 PM) UA Glucose [Normal mg/dL] Normal mg/dL (06/07/23 5:05 PM) UA Bacteria [None Seen] Occasional *ABN* (06/07/23 5:05 PM) UA Protein [Negative mg/dL] Negative mg/ dL (06/07/23 5:05 PM) UA Blood [Negative Rocael/mcL] Negative Rocael /mcL (06/07/23 5:05 PM) UA Mucous [None Seen] None Seen (06/07/23 5:05 PM) UA Spec Grav 1.020 (06/07/23 5:05 PM) UA Squam Epithelial [None Seen] Moderate *ABN* (06/07/23 5:05 PM) UA pH [5.0-9.0] 5.0 (06/07/23 5:05 PM) UA Appear [Clear] Hazy (06/07/23 5:05 PM) UA Culture Ind?. Not Indicated (06/07/23 5:05 PM) Urine Srce Urine (06/07/23 5:05 PM) UA Amorph Occasional (06/07/23 5:05 PM) Urine Volume 12 mL (06/07/23 5:05 PM) UA Yeast [None Seen] None Seen (06/07/23 5:05 PM) Radiology Reports * Exam Date Time Procedure Performing Provider Status 06/07/23 5:15 PM XR Abdomen KUB 1 View Luciana Huitron RT(R)(ARRT); Auth (Verified) Notes: (XR Abdomen KUB 1 View) Reason For Exam: abdominal pain XR Abdomen KUB 1 View EXAM DESCRIPTION: XR Abdomen KUB 1 View REASON FOR STUDY: Headache, abdominal pain today TECHNIQUE: Single radiographic view of the abdomen. COMPARISON: None FINDINGS: BOWEL: Nonobstructive gas pattern. Moderate amount of fecal matter in the colon. SOFT TISSUES: No abnormal calcifications. LINES/TUBES: None. BONES: No acute osseous abnormality. IMPRESSION: No acute abnormality THIS IS AN ELECTRONICALLY VERIFIED FINAL REPORT 06/07/2023 5:31 PM - Electronically signed by Jonas Ahn M.D. KT: KT Report ID: [id number] Reading Location: [id number] Final Dictated by: Jonas Ahn MD Dictated DT/TM: 06/07/2023 5:34 pm Signed by: Jonas Ahn MD Signed (Electronic Signature): 06/07/2023 5:34 pm Vital Signs Most recent to oldest [Reference Range]: 1 2 Temperature Oral [35.8-37.3 Deg C] 37.2 Deg C (06/07/23 3:55 PM) Peripheral Pulse Rate [60-100 bpm] 77 bp m (06/07/23 6:10 PM) 85 bpm (06/07/23 3:55 PM) Respiratory Rate [12-24 br/min] 20 br/mi n (06/07/23 6:10 PM) 20 br/min (06/07/23 3:55 PM) Blood Pressure [90-140/60-90 mmHg] 139/9 5mmHg (06/07/23 6:10 PM) 151/96mmHg *HI* (06/07/23 3:55 PM) Mean Arterial Pressure, Cuff [65-140 mmH g] 114 mmHg (06/07/23 3:55 PM) Weight 81.65 kg (06/07/23 3:55 PM) Weight Dosing 81.650 kg (06/07/23 3:55 PM) Height 157.48 cm (06/07/23 3:55 PM) Body Mass Index 32.92 kg/m2 (06/07/23 3:55 PM) Social History Social History Type Response Tobacco Current everyday tob acco user Tobacco Use:. 1 Sex 1Pt states that she smokes half a pack a day. Hospital Discharge Instructions Patient Education 06/07/2023 16:59:08 Migraine Headache Migraine Headache A migraine headache [...] these instructions at home: Medicines ??? Take ofez-ceh-uslrayw and prescription medicines only as told by your health care provider. ??? Ask your health care provider if the medicine prescribed to you: ??? Requires you to avoid driving or using heavy machinery. ??? Can cause constipation. You may need to take these actions to prevent or treat constipation: ??? Drink enough fluid to keep your urine pale yellow. ??? Take lqlg-evs-cqadian or prescription medicines. ??? Eat foods that [...] provider. Document Revised: 08/18/2022 Document Reviewed: 04/18/2019 [employer] Patient Education ?? 2022 [employer]. Follow Up Care 06/07/2023 15:55:12 With:Follow up with primary care provider Address:Unknown When:2 to 4 days Physician Emergency department Note * Daron Acuna MD: PERFORM, MODIFY, MODIFY, MODIFY, MODIFY Event Display: ED Note Physician Authored Date: [id number] MISHA JACKSON :1980 Age:42 years Sex:Female Visit Date:06/07/2023 Primary Care Physician: Hermes Ramirez MD Basic Information Time Seen: Daron Acuna MD / 06/07/2023 16:02 Chief Complaint COMPLAINING OF MIGRAINE RIGHT SIDE OF HEAD LIKE AKLWAYS ??RATES PAIN 7/10 PREHOSPITAL TYLENOL AT 1200. ??STATES i THINK I HAVE AN ULCER ALSO. ??COMPLAINS OF UMBILICAL AREA DISCOMFORT RATES PAIN 7-8/10. History Of Present Illness: Pt is 42??year old female that??presents with a migraine headache that is the same as all of her previous, many visits (currently 4th visit in the same month). 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 The patient has frequent visits to this ER??several times a month and she asks for??opiate pain control??with every visit. Review of Systems: Constitutional:?No??fevers,?No??chills,?No??sweats Eye:?No??recent visual problems ENT:?No??ear pain,?Positive for??nasal congestion,?No??sore throat Respiratory:?No??shortness of breath,?No??cough Cardiovascular:?No??Chest pain,?No??palpitations,?No??syncope Gastrointestinal:?Positive fornausea,?No??vomiting,?Positive for??diarrhea Genitourinary:?No??hematuria, pain and burning with urination Clemente/Lymph:?No??bruising tendency,?No??swollen lymph glands Endocrine:?No??excessive thirst,??No??excessive hunger Musculoskeletal:??No??back pain,??No??neck pain,??No??joint pain,??No??muscle pain,??No??decreased range of motion Integumentary:?No??rash,?No??pruritus,?No??abrasions Neurologic: Alert & oriented X 4 Psychiatric:?No??anxiety,?No??depression Physical Exam Vitals & Measurements T:??37.2?C ??(Oral)?? HR:??85??(Peripheral)?? RR:??20?? BP:??151/96?? SpO2:??97%?? HT:??157.48??cm?? WT:??81.65??kg?? BMI:??32.92?? Pain Score:??8?? O2 Therapy:??Room air?? General: Alert and oriented, well nourished,?No??acute distress Eye: PERRL, EOMI,?Normal?conjunctiva HENT: Normocephalic, clear tympanic membranes,?Normal? hearing, moist oral mucosa,?No??scleral icterus,?No??sinus tenderness Neck: Supple, non-tender,?No??carotid bruits,?No??JVD,?No??lymphadenopathy Lungs:??Clear to auscultation?? Respiration:??Non-Labored Heart:?Normal? rate,?Regular??rhythm,?No??murmur,?No??gallop,?No??edema Breast:?No??lumps,?No??bumps,?No??scars,?Normal? nipples Abdomen: Soft, epigastric tenderness to palpation, non-distended,?Normal? bowel sounds,?No??masses Musculoskeletal:?Normal? range of motion and strength,?No??tenderness,?No??swelling Skin: Skin is warm, dry and pink,?No??rashes,?No??lesions Neurologic: Awake, alert and oriented X4, CN II-XII intact Psychiatric: Cooperative, appropriate mood and affect Procedure No Qualifying Data Assessment/Plan Acute abdominal pain??R10.9 -XRay and urinalysis wnl -Discussed taking tylenol and to return if pain worsens, fever or chills or she can't tolerate any PO. Pt agrees with the plan. Acute migraine??G43.909 -Zofran 8 mg PO and Morphine 1 mg IM given -Stressed that pt needs to see neurologist or pcp for future visits as I will NOT BE GIVING ANY MORE NARCOTICS since she has 4 visits alone this month. Pt agrees to see neurologist or PCP for future migraines. Patient Discharge Condition stable Discharge Disposition home Patient Education Migraine Headache Follow Up With When Contact Information Follow up with primary care provider Within 2 to 4 days Additional Instructions: Medication Reconciliation Unchanged amLODIPine [...] oral capsule)TAKE ONE CAPSULE AT BEDTIME. ?? levothyroxine (levothyroxine 75 mcg (0.075 mg) oral tablet) ?? LORazepam (LORazepam 0.5 mg oral tablet)TAKE ONE TABLET BY MOUTH DAILY NEEDED FOR ANXIETY. ?? metoprolol (metoprolol succinate 100 mg oral capsule, extended release)1 Capsules Oral (given by mouth) 2 times a day. Refills: 11. ?? mycophenolate mofetil (mycophenolate mofetil 250 mg oral capsule) ?? venlafaxine (venlafaxine 37.5 mg oral capsule, [...] Lumbar back pain Migraine headache Migraine headache Numbness and tingling of right arm Obesity Pain of right scapula Pain, joint, multiple sites Right shoulder pain [...] Liver transplant disorder Migraine headache Migraine headache Nausea Otalgia of [...] Liver transplantation (05/08/2020)???Mammogram (2020)??? delivery???cyst removal from east???Hernia???liver transplant Medication Administration Given Zofran ODT, 8 mg, Oral Allergies NSAIDs Toradol??(Kidney failure as a complication of care) aspirin??(Medication interaction) azithromycin??(Unknown) codeine??(Unknown, Itching) gentamicin morphine??(redness, Itching) erythromycin??(Medication interaction) Social History Alcohol Never Electronic Cigarette/Vaping Electronic Cigarette Use: Never. Substance Use Never Tobacco Current everyday tobacco user Tobacco Use:.- Comments: Pt states that she smokes half a pack a day. Family History Cancer: Mother. Electronically Signed on 06/07/23 05:55 PM Daron Acuna MD Patient Care team information Care Team Personnel Name: Jessee Jones UNDER SEAL OPERATOR Position: Physician Member Role: Nurse Practitioner Address: Address: [address] [place] [address], [address] [place] [address] Name: Latoya Marquez UNDER SEAL OPERATOR Position: Physician Member Role: Nurse Practitioner Address: Address: [address] [place] [address]- Name: Leonila Gonzalez UNDER SEAL OPERATOR Position: Physician Member Role: Nurse Practitioner Address: Address: [address] [place] [address]- Name: Beth Brandt UNDER SEAL OPERATOR Position: Physician Member Role: Nurse Practitioner Address: Address: [address] [place] [address] Name: Hermes Ramirez MD Position: Physician Member Role: Informed Provider Address: Address: [address] [place] [address], [address] Name: Pillo Moe UNDER SEAL OPERATOR Position: Physician Member Role: Nurse Practitioner Address: Address: [address] [place] [address], [address] [facility] Care Team Related Persons Name: STACIA JONES Address: Home [address] [id number] Name: MADY CHEN Name: MADY CHEN
--- OUTSIDE RECORDS SUMMARY | 2024-03-20 11:36 | XMS_ITS | Continuity of Care Document ---
Author Organization [facility] Address [address] [place] [address] Care Team Providers Care Diesel Bus Mechanic Name Role Phone Vijaynixon Hermes Chris Primary Care Physician Encounter [facility] [id number] Date(s): 06/10/20 - 06/10/20 [facility] [address] [place], [place] [address] Discharge Disposition: Home or Self Care Attending Physician: Torito Duncan MD Allergies, Adverse Reactions, Alerts Substance Reaction Severity Status erythromycin Medication interaction Activ e aspirin Medication interaction Activ e Toradol Kidney failure as a complication of care Active Assessment and Plan Future Scheduled Tests Laboratory* COVID-19 Testing Send Out - [place] State 10/25/19 Functional Status 06/10/20 Other exposure to Infectious Disease COV ID-19 [...] Daily, # 5 tab, 0 Refill(s), Pharmacy: [id number] Start Date: 04/14/20 Stop Date: 04/19/20 Status: [...] nausea/vomiting, # 20 tab, 0 Refill(s), [facility]: [id number] Start Date: 04/28/19 Stop Date: 05/03/19 Status: [...] Procedure Date Related Diagnosis Body Site Status Kidney transplant 05/13/20 Complet ed Tx - Liver transplantation 05/08/20 Completed delivery Complet ed cyst removal from breast Completed Hernia Completed liver transplant Complete d Vital Signs Most recent to oldest [Reference Range]: 1 Respiratory Rate [14-20 br/min] 18 br/mi n (06/10/20 1:24 PM) Weight 72.57 kg (06/10/20 1:24 PM) Weight Measured (lbs) 160 lb (06/10/20 1:24 PM) Height 157.48 cm (06/10/20 1:24 PM) Height/Length Measured (inches) 62 inch (06/10/20 1:24 PM) BSA Measured 1.78 m2 (06/10/20 1:24 PM) Body Mass Index Measured 29.26 kg/m2 (06/10/20 1:24 PM) Social History Social History Type Response Smoking Status 4 or less cigarettes (less than 1/4 pack)/day in last 30 days entered on: 04/08/20 Sex
--- OUTSIDE RECORDS SUMMARY | 2024-03-20 11:36 | XMS_ITS | Continuity of Care Document ---
Author Organization [facility] Address [address] [place] [address] Care Team Providers Care Hydrogen Power Plant Manager Name Role Phone Hermes Ramirez Primary Care Physician Encounter ONOFREEver MCGRAW [id number] Date(s): 04/11/21 - 04/11/[address] [address] [place] Encounter Diagnosis Hx of migraine headaches(Discharge Diagnosis) - 04/11/21 Palpitations(Discharge Diagnosis) - 04/11/21 Discharge Disposition: Home or Self Care Attending [...] BID, # 180 tab, 3 Refill(s), Pharmacy: [place], [place], [address], cm, 10/22/20 21:26:00 CDT, Height/Length [...] Complete d Results Laboratory List Name Date CBC w/ Diff 04/11/21 Cardiac Enzymes 04/11/21 Comprehensive Metabolic Panel (CMP) 04/11 Magnesium Level 04/11/21 Automated Diff 04/11/21 Most recent to oldest [Reference Range]: 1 WBC [4.0-11.5 K/mcL] 7.6 K/mcL (04/11/21 1:03 AM) RBC [4.20-5.40 x10^6/mcL] 4.26 x10^6/mcL (04/11/21 1:03 AM) Neutro Auto 68.6 % *NA* (04/11/21 1:03 AM) Lymph Auto 19.5 % *NA* (04/11/21 1:03 AM) Wallace Auto 7.3 % *NA* (04/11/21 1:03 AM) Basophil Auto 0.1 % *NA* (04/11/21 1:03 AM) BUN [7-18 mg/dL] 20 mg/dL *HI* (04/11/21 1:03 AM) Glucose Level [70-110 mg/dL] 101 mg/dL (04/11/21 1:03 AM) Potassium Level [3.5-5.1 mmol/L] 3.7 mmo l/L (04/11/21 1:03 AM) Baso Absolute [0.0-0.1 x10^3/mcL] 0.0 x1 0^3/mcL (04/11/21 1:03 AM) MCV [78.0-100.0 fL] 92.0 fL (04/11/21 1:03 AM) AST [15-37 unit/L] 25 unit/L (04/11/21 1:03 AM) ALT [12-78 unit/L] 36 unit/L (04/11/21 1:03 AM) MCHC [29.0-37.5 g/dL] 36.0 g/dL (04/11/21 1:03 AM) Troponin-I [0.000-0.056 ng/mL] <0.017 ng /mL (04/11/21 1:03 AM) Sodium Level [136-145 mmol/L] 144 mmol/L (04/11/21 1:03 AM) Lymph Absolute [0.8-5.8 x10^3/mcL] 1.5 x 10^3/mcL (04/11/21 1:03 AM) Hct [36.0-48.0 %] 39.2 % (04/11/21 1:03 AM) Calcium Level [8.5-10.1 mg/dL] 8.2 mg/dL *LOW* (04/11/21 1:03 AM) Wallace Absolute [0.1-1.5 x10^3/mcL] 0.6 x1 0^3/mcL (04/11/21 1:03 AM) Albumin Level [3.4-5.0 g/dL] 3.7 g/dL (04/11/21 1:03 AM) Protein Total [6.4-8.2 g/dL] 7.1 g/dL (04/11/21 1:03 AM) MCH [27.0-34.0 pg] 33.1 pg (04/11/21 1:03 AM) Magnesium Level [1.8-2.4 mg/dL] 1.6 mg/d L *LOW* (04/11/21 1:03 AM) Neutro Absolute [1.5-8.1 x10^3/mcL] 5.2 x10^3/mcL (04/11/21 1:03 AM) Bilirubin Total [0.0-1.0 mg/dL] 0.4 mg/d L (04/11/21 1:03 AM) Hgb [12.0-16.0 g/dL] 14.1 g/dL (04/11/21 1:03 AM) Alk Phos [46-130 unit/L] 219 unit/L *HI* (04/11/21 1:03 AM) MPV [6.0-10.0 fL] 9.8 fL (04/11/21 1:03 AM) Platelets [150-450 K/mcL] 129 K/mcL *LOW* (04/11/21 1:03 AM) CO2 [21-32 mmol/L] 26 mmol/L (04/11/21 1:03 AM) Eos Absolute [0.0-0.5 x10^3/mcL] 0.3 x10 ^3/mcL (04/11/21 1:03 AM) eGFR Non-AA 45 *NA* (04/11/21 1:03 AM) eGFR AA 55 *NA* (04/11/21 1:03 AM) Chloride Level [97-107 mmol/L] 107 mmol/ L (04/11/21 1:03 AM) RDW-CV [11.5-15.0 %] 13.3 % (04/11/21 1:03 AM) Imm Gran Absolute [0.0-0.1 x10^3/mcL] 0. 0 x10^3/mcL (04/11/21 1:03 AM) Imm Gran Auto 0.4 % *NA* (04/11/21 1:03 AM) NRBC Auto 0.0 % *NA* (04/11/21 1:03 AM) NRBC Absolute [0.0-0.0 x10^3/mcL] 0.0 x1 0^3/mcL (04/11/21 1:03 AM) Creatinine Level [0.60-1.30 mg/dL] 1.39 mg/dL *HI* (04/11/21 1:03 AM) Anion Gap [5-15 mmol/L] 15 mmol/L (04/11/21 1:03 AM) Eos, Auto 4.1 % *NA* (04/11/21 1:03 AM) CK [21-232 unit/L] 62 unit/L (04/11/21 1:03 AM) Radiology Reports * Exam Date Time Procedure Performing Provider Status 04/11/21 1:38 AM XR Chest 1 View Liz Henry RT(R ); Auth (Verified) Notes: (XR Chest 1 View) Reason For Exam: palpitations/recent Covid XR Chest 1 View EXAM DESCRIPTION: XR Chest 1 View REASON FOR STUDY: headache, palpitations/recent Covid, hx heart murmur DURATION: starting 2100 yesterday Comparisons: 10/22/20 PREVIOUS SURGERY: kidney and liver transplant, c-sec, hernia, xyst removed from breast, tubal ligation, ablation SMOKING HISTORY: 03/23-03/21 ppd TECHNIQUE: Upright portable AP view of the chest is performed. COMPARISON: 10/22/2020. FINDINGS: No focal airspace consolidation. No pleural effusion or pneumothorax. Cardiomediastinal silhouette is normal. IMPRESSION: No radiographic evidence of acute cardiopulmonary process. THIS IS AN ELECTRONICALLY VERIFIED FINAL REPORT 04/11/2021 1:45 AM - Electronically signed by David Blandon M.D. RT: RT Report ID: [id number] Reading Location: [id number] Final Dictated by: David Blandon MD Dictated DT/TM: 04/11/2021 1:48 am Signed by: David Blandon MD Signed (Electronic Signature): 04/11/2021 1:48 am Vital Signs Most recent to oldest [Reference Range]: 1 Temperature Oral [35.8-37.3 Deg C] 36.6 Deg C (04/11/21 12:23 AM) Peripheral Pulse Rate [60-100 bpm] 93 bp m (04/11/21 12:23 AM) Respiratory Rate [12-24 br/min] 18 br/mi n (04/11/21 12:23 AM) Blood Pressure [90-140/60-90 mmHg] 168/8 6mmHg *HI* (04/11/21 12:23 AM) Weight 77.11 kg (04/11/21 12:23 AM) Weight Dosing 77.11 kg (04/11/21 12:50 AM) Height 157.480 cm (04/11/21 12:23 AM) Height/Length Dosing 157.480 cm (04/11/21 12:50 AM) Body Mass Index Estimated 31 (04/11/21 12:23 AM) Social History Social History Type Response Smoking Status 5-9 cigarettes (betw een 1/4 to 1/2 pack)/day in last 30 days entered on: 04/01/21 Sex Hospital Discharge Instructions Patient Education 04/11/2021 01:24:22 Palpitations, Mkyv-wx-Llgu Palpitations Palpitations are feelings that your heartbeat is not normal. Your heartbeat may feel like it is: ??? Uneven. ??? Faster than normal. ??? Fluttering. ??? Skipping a beat. This is usually not a serious problem. In some cases, you may need tests to rule out any serious problems. Follow these instructions at home: Pay attention to any changes in your condition. Take these actions to help manage your symptoms: Eating and drinking ??? Avoid: ??? Coffee, tea, soft drinks, and energy drinks. ??? Chocolate. ??? Alcohol. ??? Diet pills. Lifestyle ??? Try to lower your stress. These things can help you relax: ??? Yoga. ??? Deep breathing and meditation. ??? Exercise. ??? Using words and images to create positive thoughts (guided imagery). ??? Using your mind to control things in your body (biofeedback). ??? Do not use drugs. ??? Get plenty of rest and sleep. Keep a regular bed time. General instructions ??? Take vzep-mjk-mnxcand and prescription medicines only as told by your doctor. ??? Do not use any products that contain nicotine or tobacco, such as cigarettes and e-cigarettes. If you need help quitting, ask your doctor. ??? Keep all follow-up visits as told by your doctor. This is important. You may need more tests ifpalpitations do not go away or get worse. Contact a doctor if: ??? Your symptoms last more than 24 hours. ??? Your symptoms occur more often. Get help right away if you: ??? Have chest pain. ??? Feel short of breath. ??? Have a very bad headache. ??? Feel dizzy. ??? Pass out (faint). Summary ??? Palpitations are feelings that your heartbeat is uneven or faster than normal. It may feel likeyour heart is fluttering or skipping a beat. ??? Avoid food and drinks that may cause palpitations. These include caffeine, chocolate, and alcohol. ??? Try to lower your stress. Do not smoke or use drugs. ??? Get help right away if you faint or have chest pain, shortness of breath, a severe headache, ordizziness. This information is not intended to replace advice given to you by your health care provider. Make sure you discuss any questions you have with your health care provider. Document Revised: 04/18/2018 Document Reviewed: 04/18/2018 [employer] Patient Education ?? 2020 [employer] Follow Up Care 04/11/2021 00:23:23 With:Follow up with specialist Address: When:3 to 5 days Comments:Follow-up with cardiology
--- OUTSIDE RECORDS SUMMARY | 2024-03-20 11:36 | XMS_ITS | Continuity of Care Document ---
Author Organization [facility] Address [address] [place] [address] Care Team Providers Care Cement Mason Apprentice Name Role Phone Hermes Ramirez Primary Care Physician Encounter ONOFRE MCGRAW [id number] Date(s): 11/25/22 - 11/25/[address] [address] [place] Encounter Diagnosis Migraine headache(Discharge Diagnosis) - 11/25/22 Discharge Disposition: Home or Self Care Attending Physician: Jesus Khan MD Admitting Physician: Jesus Khan MD Allergies, Adverse Reactions, Alerts Substance Reaction Severity Status codeine Unknown Itching Severe Active gentamicin Moderate Active erythromycin Medication interaction Activ e aspirin Medication interaction Severe Activ e NSAIDs Severe Active Toradol Kidney failure as a complication of care Severe Active azithromycin Unknown Severe Active Assessment and Plan Future Appointments Future Scheduled Tests Laboratory* Giardia lamblia Ag, [...] Daily, # 30 tab, 0 Refill(s), Pharmacy: [place], [place], [address], cm, 09/10/22 15:23:00 CDT, Height/Length [...] BID, # 60 cap, 0 Refill(s), Pharmacy: [place], [place], [address], cm, 09/10/22 15:23:00 CDT, Height/Length [...] Range]: 1 Temperature Oral [35.8-37.3 Deg C] 37.4 Deg C *HI* (11/25/22 9:17 PM) Peripheral Pulse Rate [60-100 bpm] 77 bp m (11/25/22 9:17 PM) Respiratory Rate [12-24 br/min] 20 br/mi n (11/25/22 9:17 PM) Blood Pressure [90-140/60-90 mmHg] 148/1 02mmHg *HI* (11/25/22 9:17 PM) Weight 79.00 kg (11/25/22 9:17 PM) Weight Dosing 79.00 kg (11/25/22 9:54 PM) Height 157.000 cm (11/25/22 9:17 PM) Height/Length Dosing 157.000 cm (11/25/22 9:54 PM) Body Mass Index 32.000 kg/m2 (11/25/22 9:17 PM) Social History Social History Type Response Tobacco Current everyday tob acco user Tobacco Use:. Sex Hospital Discharge Instructions Patient Education 11/25/2022 21:52:00 Migraine Headache, Bitm-mk-Qxms Migraine Headache A migraine headache is a [...] these instructions at home: Medicines ??? Take rkgn-qch-fueugip and prescription medicines only as told by your doctor. ??? Ask your doctor if the medicine prescribed to you: ??? Requires you to avoid driving or using heavy machinery. ??? Can cause trouble pooping (constipation). You may need to take these steps to prevent or treat trouble pooping: ??? Drink enough fluid to keep your pee (urine) pale yellow. ??? Take lqyx-crs-gyqfoyz or prescription medicines. ??? Eat foods that [...] provider. Document Revised: 06/28/2019 Document Reviewed: 04/18/2019 [employer] Patient Education ?? 2022 [employer]. Follow Up Care 11/25/2022 21:17:47 With:Hermes Ramirez MD Address: [address] [place] [address] [place], [place] [id number]- When:1 week Comments:Continue other home medications. Physician Emergency department Note * Jesus Khan MD: PERFORM Event Display: ED Note Physician Authored Date: [id number] MISHA JACKSON :1980 Age:42 years Sex:Female Visit Date:11/25/2022 Primary Care Physician: Hermes Ramirez MD Basic Information Time Seen: Jesus Khan MD / 11/25/2022 21:42 History Of Present Illness: 42 years old??female??comes in complaining of migraine headache??states started this morning.?? Patient??has chronic??intractable migraines. 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 Patient mentions she usually takes??Botox injection for her migraines every 3 months;??missed??her last??appointment. Review of Systems: Constitutional:?No??fevers,?No??chills,?No??sweats; migraine headache. Eye:?No??recent visual problems ENT:?No??ear pain,?No??nasal congestion,?No??sore throat [...] affect Medical Decision Making: Phenergan 25 mg IM.?? Benadryl 50 mg IM. ??Morphine sulfate 2 mg IM. Procedure No Qualifying Data Assessment/Plan 1.??Migraine headache??G43.909 Orders: Benadryl, 50 mg = 1 mL, IM, Injection, Once, First Dose: 11/25/22 22:00:00 CDT, Stop Date: 11/25/2321:00:00 CDT, Physician Stop, Routine morphine, 2 mg = 1 mL, IM, Injection, Once, First Dose: 11/25/22 22:00:00 CDT, Stop Date: 11/25/22 22:00:00 CDT, Physician Stop, Routine Phenergan, 25 mg = 1 mL, IM, Injection, Once, First Dose: 11/25/22 22:00:00 CDT, Stop Date: 11/25/22 22:00:00 CDT, Physician Stop, Routine Patient Discharge Condition Good Discharge Disposition Discharge home Patient Education Migraine Headache, Ofpq-kb-Lrur Follow Up With When Contact Information Hermes Ramirez MD Within [address] [place] [address] [address] [place] [address]- Additional Instructions: Continue other home medications. Medication Reconciliation Unchanged amLODIPine (amLODIPine 5 mg [...] day. Family History Cancer: Mother. Attending Attestation Follow-up with PCP. Electronically Signed on 11/25/22 09:53 PM Jesus Khan MD Patient Care team information Care Team Personnel Name: Jessee Jones CONSERVATION TECHNICIAN Position: Physician Member Role: Nurse Practitioner Address: Address: [address] [place] [address], [address] Name: Latoya Marquez CONSERVATION TECHNICIAN Position: Physician Member Role: Nurse Practitioner Address: Address: [address] [place] [address]- Name: Leonila Gonzalez CONSERVATION TECHNICIAN Position: Physician Member Role: Nurse Practitioner Address: Address: [address] [place] [address]- Name: Beth Brandt CONSERVATION TECHNICIAN Position: Physician Member Role: Nurse Practitioner Address: Address: [address] [place] [address] Name: Hermes Ramirez MD Position: Physician Member Role: Informed Provider Address: Address: [address] [place] [address], [facility] [address] Name: Pillo Moe CONSERVATION TECHNICIAN Position: Physician Member Role: Nurse Practitioner Address: Address: [address] [place] [address], [address] [facility] Name: Jesus Khan MD Position: Physician Member Role: ED Physician Address: Address: [address] [place] [address] [place] [place], [place] [address] Name: Tori Villalpando RN Position: Nurse Member Role: Registered Nurse Care Team Related Persons Name: STACIA JONSE Address: Home [address] [place] [phone] Name: ROBYN JAMA Address: Home
--- OUTSIDE RECORDS SUMMARY | 2024-03-20 11:36 | XMS_ITS | Continuity of Care Document ---
Author Organization [facility] Address [address] [place] [address] Care Team Providers Care Machine Feed Operator Name Role Phone Hermes Ramirez Primary Care Physician Encounter ONOFRE MCGRAW [id number] Date(s): 12/20/21 - 12/21/[address] [address] Encounter Diagnosis Headache, migraine, intractable(Discharge Diagnosis) - 12/20/21 Discharge Disposition: Home or Self Care Attending [...] wheezing, # 6.7 g, 0 Refill(s), Pharmacy: [facility] [place], [place], [address], cm, 09/13/21 23:53:00 CDT, Height/Length [...] mL, IM, Once, 0 Refill(s) Start Date: 12/15/21 Status: Ordered Benadryl 50 mg = 1 mL, IM, Once, 0 Refill(s) Start Date: 11/25/21 Status: Ordered butalbital/acetaminophen/caffeine 50 mg-300 mg-40 mg oral capsule 1 cap, Oral, every 4 hr, PRN as needed, # 12 cap, 0 Refill(s), Pharmacy: [place], [place], [address], cm, 11/04/21 20:02:00 CDT, Height/Length Dosing, 73, kg, 11/04/21 20:02:00 CDT, Weight Dosing Start Date: 11/04/21 Status: Ordered cefaclor 500 mg oral tablet, extended release 500 mg = 1 tab, Oral, BID, # 20 tab, 0 Refill(s), Pharmacy: [place], [place], [address], cm, 11/18/21 23:46:00 CDT, Height/Length Dosing, 73, kg, 11/18/21 23:46:00 CDT, Weight Dosing Start Date: 11/19/21 Stop Date: 11/29/21 Status: Ordered Fioricet with Codeine 50 mg-300 mg-40 mg-30 mg oral capsule 1 cap, Oral, every 4 hr, PRN as needed, # 12 cap, 0 Refill(s), Pharmacy: [place], [place], [address], cm, 11/29/21 8:04:00 CDT, Height/Length [...] BID, # 180 tab, 3 Refill(s), Pharmacy: [place], [place], [address], cm, 10/22/20 21:26:00 CDT, Height/Length Dosing, 74, kg, 10/22/20 21:26:00 CDT, Weight Dosing Start Date: 12/18/20 Status: Ordered morphine 2 mg/mL preservative-free injectable solution 2 mg = 1 mL, IM, Once, 0 Refill(s) Start Date: 12/10/21 Status: Ordered morphine 4 mg/mL preservative-free injectable solution 4 mg = 1 mL, IM, Once, 0 Refill(s) Start Date: 12/15/21 Status: Ordered morphine 4 mg/mL preservative-free injectable solution 4 mg = 1 mL, IM, Once, 0 Refill(s) Start Date: 11/25/21 Status: Ordered ondansetron 4 mg oral tablet, disintegrating 4 mg = 1 tab, Oral, every 6 hr, PRN nausea/vomiting, # 12 tab, 0 Refill(s), Pharmacy: [place], [place], [address], cm, 11/04/21 20:02:00 CDT, Height/Length Dosing, 73, kg, 11/04/21 20:02:00 CDT, Weight Dosing Start Date: 11/04/21 Stop Date: 11/07/21 Status: Ordered Pepcid 20 mg oral tablet 20 mg = 1 tab, Oral, BID, 0 Refill(s) Start Date: 09/29/20 Status: Ordered Phenergan 25 mg = 1 mL, IM, Once, 0 Refill(s) Start Date: 12/15/21 Status: Ordered Phenergan 25 mg = 1 mL, IM, Once, 0 Refill(s) Start Date: 11/25/21 Status: Ordered Phenergan 25 mg oral tablet 25 mg = 1 tab, Oral, every 6 hr, PRN as needed for nausea/vomiting, # 20 tab, 0 Refill(s), Pharmacy: [place], [place], [address], cm, 09/29/21 23:03:00 CDT, Height/Length [...] Bilateral conjunctivitis Confirmed Active Constipation Confirmed Active COVID-19 Confirmed Active Difficulty sleeping Confirmed Active Rash Confirmed Active Gout Confirmed Active History of liver transplant Confirmed Active Hx of migraine headaches Confirmed Active Heart murmur Confirmed Active History of burning pain in leg Confirmed Active History of kidney transplant Confirmed Active Idiopathic thrombocytopenic purpura Confirmed Active Liver transplant disorder Confirmed Active Lumbar back pain Confirmed Active Migraine headache Confirmed Active Pain, joint, multiple sites Confirmed Active Otalgia of right ear Confirmed [...] Confirmed Active Sprain of knee Confirmed Active Tachycardia Confirmed Active Tobacco use [...] [35.8-37.3 Deg C] 37 De g C (12/20/21 11:29 PM) Peripheral Pulse Rate [60-100 bpm] 78 bp m (12/20/21 11:29 PM) Respiratory Rate [12-24 br/min] 20 br/mi n (12/20/21 11:29 PM) Blood Pressure [90-140/60-90 mmHg] 146/7 9mmHg *HI* (12/20/21 11:29 PM) Weight 73.00 kg (12/20/21 11:29 PM) Weight Dosing 73.00 kg (12/20/21 11:41 PM) Height 157.000 cm (12/20/21 11:29 PM) Height/Length Dosing 157.000 cm (12/20/21 11:41 PM) Social History Social History Type Response Tobacco Current some day tob acco user Tobacco Use:. Sex Hospital Discharge Instructions Patient Education 12/20/2021 23:38:25 Chronic Migraine Headache, Izdu-fb-Zgqn Chronic Migraine Headache A migraine headache is [...] these instructions at home: Medicines ??? Take voff-mcf-uxoyvjw and prescription medicines only as told by [...] Headache and Migraine Patients (CHAMP): headachemigraine.org ??? [place] Migraine Foundation: americanmigrainefoundation.org ??? National Headache Foundation: [...] Reviewed: 04/22/2020 [employer] Patient Education ?? 2021 [employer] Follow Up Care 12/20/2021 23:29:14 With:Follow up with specialist Address: When:3 to 5 days Comments:See ENT as scheduled With:Follow up with primary care provider Address: When:5 to 7 days Patient Care team information Personnel Name: Hermes Ramirez MD Address: Address: [address] [place] [address], [address]
--- OUTSIDE RECORDS SUMMARY | 2024-03-20 11:36 | XMS_ITS | Continuity of Care Document ---
Author Organization [facility] Address [address] [place] [address] Care Team Providers Care Milling Machine Operator Name Role Phone Hermes Ramirez Primary Care Physician [phone] Encounter MALCOLM MARILUZ [id number] Date(s): 05/15/22 - 05/15/[address] [address] Encounter Diagnosis Dysuria(Discharge Diagnosis) - 05/15/22 Migraine headache(Discharge Diagnosis) - 05/15/22 Renal insufficiency(Discharge Diagnosis) - 05/15/22 Discharge Disposition: Home or Self Care Attending [...] Plan Diagnostic Tests Pending * Urine Culture 05/15/22 Future Scheduled Tests Laboratory* Giardia lamblia Ag, EIA 04/07/22 * Cryptosporidium EIA 04/07/22 * Stool Culture 04/07/22 * Clostridium difficile Amp 04/07/22 * Ova + Parasite Exam 04/07/22 Immunizations Given and Recorded Vaccine Date [...] wheezing, # 6.7 g, 0 Refill(s), Pharmacy: [place], [place], [address], cm, 09/13/21 23:53:00 CDT, Height/Length [...] 0 Refill(s) Start Date: 05/05/22 Status: Ordered buPROPion 100 mg/12 hours (SR) oral tablet, extended release TAKE ONE TABLET DAILY. swallow whole Start Date: 02/14/22 Status: Ordered butalbital/acetaminophen/caffeine 50 mg-300 mg-40 mg oral capsule 1 cap, Oral, every 4 hr, PRN as needed, # 12 cap, 0 Refill(s), Pharmacy: [place], [place], [address], cm, 11/04/21 20:02:00 CDT, Height/Length Dosing, 73, kg, 11/04/21 20:02:00 CDT, Weight Dosing Start Date: 11/04/21 Status: Ordered Cipro 250 mg oral tablet 250 mg = 1 tab, Oral, every 12 hr, X 7 days, # 14 tab, 0 Refill(s), 05/22/22 1:45:00 RN PLACEMENT, Pharmacy:[place], [place], [address], cm, 05/15/22 1:01:00 RN PLACEMENT, Height/Length Dosing, 74, kg, 05/15/22 1:01:00 RN PLACEMENT, Weight Dosing Start Date: 05/15/22 Stop Date: 05/22/22 Status: Ordered gabapentin 300 mg oral capsule TAKE ONE CAPSULE AT BEDTIME Start Date: 12/18/20 Status: Ordered LORazepam 0.5 mg oral tablet TAKE ONE TABLET BY MOUTH DAILY NEEDED FOR ANXIETY Start Date: 12/18/20 Status: Ordered Metoprolol Tartrate 25 mg oral tablet 1 tab, Oral, BID, # 180 tab, 3 Refill(s), Pharmacy: [facility], 157.48, cm, 02/07/22 18:45:00CST, Height/Length Dosing, 72.57, kg, 02/07/22 18:45:00 RN PLACEMENT, Weight Dosing Start Date: 02/13/22 Status: Ordered morphine 2 mg/mL preservative-free injectable solution 2 mg = 1 mL, IM, Once, 0 Refill(s) Start Date: 05/05/22 Status: Ordered oseltamivir 30 mg oral capsule 30 mg = 1 cap, Oral, BID, # 10 cap, 0 Refill(s), Pharmacy: [place], [place], [address], cm, 03/16/22 18:01:00 RN PLACEMENT, Height/Length Dosing, 77.11, kg, 03/16/22 18:01:00 RN PLACEMENT, Weight Dosing Start Date: 03/16/22 Status: Ordered Pepcid 20 mg oral tablet 20 mg = 1 tab, Oral, BID, 0 Refill(s) Start Date: 09/29/20 Status: Ordered Phenergan 25 mg = 1 mL, IM, Once, 0 Refill(s) Start Date: 05/05/22 Status: Ordered Phenergan 25 mg oral tablet 25 mg = 1 tab, Oral, every 6 hr, PRN as needed for nausea/vomiting, # 20 tab, 0 Refill(s), Pharmacy: [place], [place], [address], cm, 09/29/21 23:03:00 CDT, Height/Length [...] Complete d Results Laboratory List Name Date Urinalysis with Culture if Indicated 04/21 09/09 .Urine Volume 05/15/22 Urinalysis Microscopic 05/15/22 Most recent to oldest [Reference Range]: 1 UA Color Yellow (05/15/22 12:29 AM) UA WBC [0-5] None (05/15/22 12:29 AM) UA Urobilinogen [Normal mg/dL] Normal mg /dL (05/15/22 12:29 AM) UA Bili [Negative mg/dL] Negative mg/dL (05/15/22 12:29 AM) UA Ketones [Negative mg/dL] Negative mg/ dL (05/15/22 12:29 AM) UA RBC [0-3] None (05/15/22 12:29 AM) UA Leuk Est [Negative Guille/mcL] Negative Guille/mcL (05/15/22: AM) UA Nitrite [Negative] Negative (05/15/22 AM) UA Glucose [Normal mg/dL] Normal mg/dL (05/15/22 12:29 AM) UA Bacteria [None Seen] Occasional *ABN* (05/15/22 AM) UA Protein [Negative mg/dL] Negative mg/ dL (05/15/22: AM) UA Blood [Negative Rocael/mcL] Negative Rocael /mcL (05/15/22: AM) UA Mucous [None Seen] None Seen (05/15/22 AM) UA Spec Grav 1.010 (05/15/22: AM) UA Squam Epithelial [None Seen] Occasion al (05/15/22: AM) UA pH [5.0-9.0] 6.5 (05/15/22: AM) UA Appear [Clear] Clear (05/15/22: AM) UA Culture Ind?. Not Indicated (05/15/22: AM) Urine Srce Clean Catch (05/15/22 AM) Urine Volume 12 mL (05/15/22: AM) UA Yeast [None Seen] None Seen (05/15/22 AM) Vital Signs Most recent to oldest [Reference Range]: 1 Temperature Oral [35.8-37.3 Deg C] 36.5 Deg C (05/15/22 12: AM) Peripheral Pulse Rate [60-100 bpm] 86 bp m (05/15/22 12: AM) Respiratory Rate [12-24 br/min] 20 br/mi n (05/15/22 12: AM) Blood Pressure [90-140/60-90 mmHg] 156/8 0mmHg *HI* (05/15/22 12:25 AM) Weight 74.00 kg (05/15/22 12:25 AM) Weight Dosing 74.00 kg (05/15/22 1:01 AM) Height 157.000 cm (05/15/22 12:25 AM) Height/Length Dosing 157.000 cm (05/15/22 1:01 AM) Body Mass Index 30.000 kg/m2 (05/15/22 12:25 AM) Social History Social History Type Response Tobacco Current everyday tob acco user Tobacco Use:. Sex Hospital Discharge Instructions Patient Education 05/15/2022 01:54:09 Dysuria Dysuria Dysuria is pain or discomfort during urination. The pain or discomfort may be felt in the part of the body that drains urine from the bladder (urethra) or in the surrounding tissue of the genitals. The pain may also be felt in the groin area, lower abdomen, or lower back. You may have to urinate frequently or have the sudden feeling that you have to urinate (urgency). Dysuria can affect anyone, but it is more common in females. Dysuria can be caused by many different things, including: ??? Urinary tract infection. ??? Kidney stones or bladder stones. ??? Certain STIs (sexually transmitted infections), such as chlamydia. ??? Dehydration. ??? Inflammation of the tissues of the vagina. ??? Use of certain medicines. ??? Use of certain soaps or scented products that cause irritation. Follow these instructions at home: Medicines ??? Take uzim-vbo-fitavcf and prescription medicines only as told by your health care provider. ??? If you were prescribed an antibiotic medicine, take it as told by your health care provider. Donot stop taking the antibiotic even if you start to feel better. Eating and drinking ??? Drink enough fluid to keep your urine pale yellow. ??? Avoid caffeinated beverages, tea, and alcohol. These beverages can irritate the bladder and make dysuria worse. In males, alcohol may irritate the prostate. General instructions ??? Watch your condition for any changes. ??? Urinate often. Avoid holding urine for long periods of time. ??? If you are female, you should wipe from front to back after urinating or having a bowel movement. Use each piece of toilet paper only once. ??? Empty your bladder after sex. ??? Keep all follow-up visits. This is important. ??? If you had any tests done to find the cause of dysuria, it is up to you to get your test results. Ask your health care provider, or the department that is doing the test, when your results will be ready. Contact a health care provider if: ??? You have a fever. ??? You develop pain in your back or sides. ??? You have nausea or vomiting. ??? You have blood in your urine. ??? You are not urinating as often as you usually do. Get help right away if: ??? Your pain is severe and not relieved with medicines. ??? You cannot eat or drink without vomiting. ??? You are confused. ??? You have a rapid heartbeat while resting. ??? You have shaking or chills. ??? You feel extremely weak. Summary ??? Dysuria is pain or discomfort while urinating. Many different conditions can lead to dysuria. ??? If you have dysuria, you may have to urinate frequently or have the sudden feeling that you have to urinate (urgency). ??? Watch your condition for any changes. Keep all follow-up visits. ??? Make sure that you urinate often and drink enough fluid to keep your urine pale yellow. This information is not intended to replace advice given to you by your health care provider. Make sure you discuss any questions you have with your health care provider. Document Revised: 10/16/2020 Document Reviewed: 10/16/2020 [employer] Patient Education ?? 2021 [email or web address]. 05/15/2022 01:54:00 Chronic Migraine Headache Chronic Migraine Headache A [...] these instructions at home: Medicines ??? Take nxra-obc-xjplzzo and prescription medicines only as told by [...] Headache and Migraine Patients (CHAMP): headachemigraine.org ??? [place] Migraine Foundation: americanmigrainefoundation.org ??? National Headache Foundation: [...] provider. Document Revised: 04/22/2020 Document Reviewed: 04/22/2020 [employer] Patient Education ?? 2021 [email or web address]. Follow Up Care 05/15/2022 00:24:57 With:Hermes Ramirez MD Address: [address] [place] [address], [address] [place] [phone]- When:3 to 5 days Comments:If you have worsening abdominal pain, fever, vomiting or new concerning symptoms, return to the emergency department. Physician Emergency department Note * Akil Casas MD: PERFORM Event Display: ED Note Physician Authored Date: MISHA JACKSON :1980 Age:41 years Sex:Female Visit Date:05/15/2022 Primary Care Physician: Hermes Ramirez MD Basic Information Time Seen: Akil Casas MD / 05/15/2022 00:27 Chief Complaint pt states Iwas here on the 23 for headache the doctor didnt give me anything so I still have it Roxane think i have a UTI it hurts when I pee I was at [place] [facility] yesterday for it they didnot put me on antibiotic History Of Present Illness: 41-year-old woman with a history of chronic migraines??and??hepatorenal transplant with renal insufficiency??comes in??with a complaint of right-sided headache??and nausea.?She has also been having pain with urination and suprapubic pain for a couple of days.?She was seen at another facility but they did not put her on an antibiotic.?? Patient states that??her??headache started several daysago.?She has taken Tylenol??and sometimes Fioricet at home for her symptoms. ??She denies fever,vomiting, cough or cold symptoms,??visual changes or weakness.?? She was seen here 2 days ago??for h kyra and refused??IM Phenergan??and Benadryl. Review of Systems: Constitutional:?No??fevers,?No??chills,?No??sweats Eye:??Positive for photophobia ENT:?No??ear pain,?No??nasal congestion,?No??sore throat Respiratory:?No??shortness of breath,?No??cough Cardiovascular:?No??Chest pain,?No??palpitations,?No??syncope Gastrointestinal:?Positive fornausea,?No??vomiting,?No??diarrhea Genitourinary:?No??hematuria, positive for dysuria Musculoskeletal:??No??back pain,??No??neck pain,??No??joint pain,??No??muscle pain,??No??decreased range of motion Integumentary:?No??rash,?No??pruritus,?No??abrasions Neurologic: No weakness, no numbness Physical Exam Vitals & Measurements T:??36.5?C ??(Oral)?? HR:??86??(Peripheral)?? RR:??20?? BP:??156/80?? SpO2:??100%?? HT:??157.000??cm?? WT:??74.00??kg?? BMI:??30.000?? O2 Therapy:??Room air?? General: Alert and oriented, well nourished,?Mild??acute distress Eye: PERRL, EOMI,?Normal??conjunctiva HENT: Normocephalic,??moist oral mucosa,?No??scleral icterus Lungs: Clear to auscultation,?Non-labored?? respiration Heart:?Normal?? rate,?Regular??rhythm,?No??murmur,?No??edema Abdomen: Soft, non-tender, non-distended Musculoskeletal:?Normal?? range of motion and strength,?No??tenderness,?No??swelling Skin: Skin is warm, dry and pink,?No??rashes,?No??lesions Neurologic: Awake, alert and oriented X4, CN II-XII intact Psychiatric: Cooperative, appropriate mood and affect Medical Decision Making: Patient states that narcotics are the only things that have helped her headaches.?? I explained??again that narcotics have no role in the treatment of migraines.?? When I offer her??Phenergan and diphenhydramine??IM like she had in the past??she does not answer??as to whether or not she wants it??but asks me again if she can have narcotics.?? She won't take triptans because she does no like the side effects.?? She cannot take droperidol because of past evidence of prolonged QT and cannot take anti-inflammatories due to her kidney disease.?? 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 Procedure No Qualifying Data Assessment/Plan 1.??Dysuria??R30.0 2.??Migraine headache??G43.909 3.??Renal insufficiency??N28.9 Orders: Cipro 250 mg oral tablet, 250 mg = 1 tab, Oral, every 12 hr, X 7 days, # 14 tab, 0 Refill(s), 05/22/22 1:45:00 RN PLACEMENT, Pharmacy: [place], [place], [address], cm, 05/15/22 1:01:00 RN PLACEMENT, Height/Length Dosing, 74, kg, 05/15/22 1:01:00 RN PLACEMENT, Weight Dosing diphenhydrAMINE, 50 mg = 1 mL, IM, Injection, Once, First Dose: 05/15/22 1:43:00 RN PLACEMENT, Stop Date: 05/15/22 1:43:00 RN PLACEMENT, Physician Stop Phenergan, 25 mg = 1 mL, IM, Injection, Once, First Dose: 05/15/22 1:43:00 RN PLACEMENT, Stop Date: 231:43:00 RN PLACEMENT, Physician Stop Urine Culture, Urine, Clean Catch, Routine collect, RT - Routine, 05/15/22 0:48:00 RN PLACEMENT, Once, Nursecollect Patient Discharge Condition Good Discharge Disposition Home Patient Education Dysuria Chronic Migraine Headache Follow Up With When Contact Information Hermes Ramirez MD Within 3 to [address] [place] [address], [address] [place] [address]- Additional Instructions: If you have worsening abdominal pain, fever, vomiting or new concerning symptoms, return to the emergency department. Medication Reconciliation New Prescription ciprofloxacin (Cipro 250 mg oral tablet)1 tab Oral (given by mouth) every 12 hours for 7 Days. Refills: 0. ?? Unchanged albuterol (albuterol [...] Use:. Family History Cancer: Mother. Lab Results UA Macroscopic?? LATEST RESULTS?? HISTORICAL RESULTS?? Urine Srce?? 05/15/22 00:29?? Clean Catch?? 03/28/22?? Clean Catch?? Urine Volume?? 05/15/22 00:29?? 12?? 03/28/22?? 12?? UA Color?? 05/15/22 00:29?? Yellow?? 03/28/22?? Straw?? UA Appear?? 05/15/22 00:29?? Clear?? 03/28/22?? Clear?? UA Glucose?? 05/15/22 00:29?? Normal?? 03/28/22?? Normal?? UA Bili?? 05/15/22 00:29?? Negative?? 03/28/22?? Negative?? UA Ketones?? 05/15/22 00:29?? Negative?? 03/28/22?? Negative?? UA Spec Grav?? 05/15/22 00:29?? 1.010?? 03/28/22?? 1.010?? UA Blood?? 05/15/22 00:29?? Negative?? 03/28/22?? Negative?? UA pH?? 05/15/22 00:29?? 6.5?? 03/28/22?? 5.0?? UA Protein?? 05/15/22 00:29?? Negative?? 03/28/22?? Negative?? UA Urobilinogen?? 05/15/22 00:29?? Normal?? 03/28/22?? Normal?? UA Nitrite?? 05/15/22 00:29?? Negative?? 03/28/22?? Negative?? UA Leuk Est?? 05/15/22 00:29?? Negative?? 03/28/22?? Negative?? UA Culture Ind?.?? 05/15/22 00:29?? Not Indicated?? 03/28/22?? Not Indicated? UA Microscopic?? LATEST RESULTS?? HISTORICAL RESULTS?? UA WBC?? 05/15/22 00:29?? None?? 03/28/22?? None?? UA RBC?? 05/15/22 00:29?? None?? 03/28/22?? None?? UA Squam Epithelial?? 05/15/22 00:29?? Occasional?? 03/28/22?? Occasional?? UA Yeast?? 05/15/22 00:29?? None Seen?? 03/28/22?? None Seen?? UA Mucous?? 05/15/22 00:29?? None Seen?? 03/28/22?? None Seen?? UA Bacteria?? 05/15/22 00:29?? Occasional Abnormal?? 03/28/22?? None Seen? Electronically Signed on 05/15/22 01:56 AM Akil Casas MD Patient Care team information Care Team Personnel Name: Jessee Jones POLICE JUDGE Position: Physician Member Role: Nurse Practitioner Address: Address: [address] [place] [address], [address] [place] [address]- Name: Latoya Marquez POLICE JUDGE Position: Physician Member Role: Nurse Practitioner Address: Address: [address] [place] [address]- Name: Leonila Gonzalez POLICE JUDGE Position: Physician Member Role: Nurse Practitioner Address: Address: [address] [place] [address] Name: Beth Brandt POLICE JUDGE Position: Physician Member Role: Nurse Practitioner Address: Address: [address] [place] [address] Name: Hermes Ramirez MD Position: Physician Member Role: Informed Provider Address: Address: [address] [place] [address], [address] [place] [address]- Name: Pillo Moe NP Position: Physician Member Role: Nurse Practitioner Address: Address: [address] [place] [address], [address] [facility] Name: Akil Casas MD Position: Physician Member Role: Admitting Physician Name: Tori Villalpando RN Position: Nurse Member Role: Registered Nurse Care Team Related Persons Name: STACIA JONES Address: Home [address] [place] [phone] Name: ROBYN JAMA Address: Home
--- OUTSIDE RECORDS SUMMARY | 2024-03-20 11:36 | XMS_ITS | Continuity of Care Document ---
Author Organization [facility] Address [address] [place] [address] Care Team Providers Care City Driver Name Role Phone Hermes Ramirez Primary Care Physician Encounter [facility] [id number] Date(s): 07/16/21 - 07/16/[address] [address] [place] Encounter Diagnosis Migraine headache(Discharge Diagnosis) - 07/16/21 Right otitis externa(Discharge Diagnosis) - 07/16/21 Discharge Disposition: Home or Self Care Attending [...] trihydrate) 1 tab, Oral, every 12 hr, X 7 days, # 14 tab, 0 Refill(s), 07/23/21 20:13:00 CDT, Pharmacy: [facility] [place], [place], [address], cm, 07/16/21 20:12:00 CDT, Height/Length Dosing, 77, kg, 07/16/21 20:12:00 CDT, Weight Dosing Start Date: 07/16/21 Stop Date: 07/23/21 Status: Ordered amLODIPine 10 mg oral tablet [...] BID, # 180 tab, 3 Refill(s), Pharmacy: [facility], [place], 157, cm, 10/22/20 21:26:00 CDT, Height/Length Dosing, [...] Range]: 1 Temperature Oral [35.8-37.3 Deg C] 37.3 Deg C (07/16/21 8:01 PM) Peripheral Pulse Rate [60-100 bpm] 120 b pm *HI* (07/16/21 8:01 PM) Respiratory Rate [12-24 br/min] 20 br/mi n (07/16/21 8:01 PM) Blood Pressure [90-140/60-90 mmHg] 139/7 6mmHg (07/16/21 8:01 PM) Weight Dosing 77.00 kg (07/16/21 8:12 PM) Weight Estimated 77.00 kg (07/16/21 8:01 PM) Height/Length Dosing 157.000 cm (07/16/21 8:12 PM) Body Mass Index Estimated 31 (07/16/21 8:01 PM) Height/Length Estimated 157.000 cm (07/16/21 8:01 PM) Social History Social History Type Response Smoking Status 5-9 cigarettes (betw een 1/4 to 1/2 pack)/day in last 30 days entered on: 05/12/21 Sex Hospital Discharge Instructions Patient Education 07/16/2021 20:15:33 Otitis Externa, Ihkm-dk-Jyqe Otitis Externa Otitis externa is an infection [...] or scrape on the outside of the ear. What increases the risk? You are more likely to get this condition if you go swimming often. What are the signs or symptoms? Itching in the ear. This is often the first symptom. ??? Swelling of the ear. ??? Redness in the ear. ??? Ear pain. The pain may get worse when you pull on your ear. ??? Pus coming from the ear. How is this treated? This condition may be treated with: ??? Antibiotic ear drops. These are often given for 10???14 days. ??? Medicines to reduce itching and swelling. Follow these instructions at home: ??? If you were given antibiotic ear drops, use them as told by your doctor. Do not stop using themeven if your condition gets better. ??? Take ntet-oei-kudkezj and prescription medicines only as told by your doctor. ??? Avoid getting water in your ears as told by your doctor. You may be told to avoid swimming or water sports for a few days. ??? Keep all follow-up visits as told by your doctor. This is important. How is this prevented? Keep your ears dry. Use the corner of a towel to dry your ears after you swim or bathe. ??? Try not to scratch or put things in your ear. Doing these things makes it easier for germs to grow in your ear. ??? Avoid swimming in lakes, dirty water, or pools that may not have the right amount of a chemicalcalled chlorine. Contact a doctor if: ??? You have a fever. ??? Your ear is still red, swollen, or painful after 3 days. ??? You still have pus coming from your ear after 3 days. ??? Your redness, swelling, or pain gets worse. ??? You have a really bad headache. ??? You have redness, swelling, pain, or tenderness behind your ear. Summary ??? Otitis externa is an infection of the outer ear canal. ??? Symptoms include pain, redness, and swelling of the ear. ??? If you were given antibiotic ear drops, use them as told by your doctor. Do not stop using themeven if your condition gets better. ??? Try not to scratch or put things in your ear. This information is not intended to replace advice given to you by your health care provider. Make sure you discuss any questions you have with your health care provider. Document Revised: 08/10/2018 Document Reviewed: 08/10/2018 [employer] Patient Education ?? 2020 [employer] Follow Up Care 07/16/2021 20:01:32 With:Hermes Ramirez MD Address: [address] [place] [address], [address] [place] [phone]- When:1 week Care Team Personnel Name: Hermes Ramirez MD Address: [address] [place] [address], [address] [place] [phone]
--- OUTSIDE RECORDS SUMMARY | 2024-03-20 11:36 | XMS_ITS | Continuity of Care Document ---
Author Organization [facility] Address [address] [place] [address] Care Team Providers Care Molded Grid And Parts Inspector Name Role Phone Ashley Hermes Chris Primary Care Physician Encounter [facility] [id number] Date(s): 02/05/20 - 02/05/20 [place] [address] [place] [address]- Encounter Diagnosis Recurrent headache(Discharge Diagnosis) - 02/05/20 Discharge Disposition: Home or Self Care Attending Physician: Mike Connor MD Admitting Physician: Mike Connor MD Allergies, Adverse Reactions, Alerts Substance Reaction Severity Status erythromycin Medication interaction Activ e aspirin Medication interaction Activ e Toradol Kidney failure as a complication of care Active Assessment and Plan Diagnostic Tests Pending * COVID-19 Testing [place] Out [place] 02/05/20 Future Scheduled Tests Laboratory* COVID-19 Testing [place] 10/25/19 Functional Status 02/05/20 Recent Travel History Last travel within 7 days Other exposure to Infectious Disease COV ID-19 Symptoms Present Immunizations Given and Recorded Vaccine Date Status Refusal Reason hepatitis B adult vaccine 11/10/17 Recorded hepatitis B adult vaccine 10/09/17 Recorded hepatitis A adult vaccine 10/09/17 Recorded tetanus/diphth/pertuss (Tdap) adult/adol 05/10/17 Recorded tetanus/diphth/pertuss (Tdap) adult/adol 03/20/17 Recorded tetanus/diphth/pertuss (Tdap) adult/adol 05/25/12 Recorded Medications Cymbalta 30 mg oral delayed release capsule 30 mg = 1 cap, Oral, Daily, do not crush or chew, # 30 cap, 2 Refill(s), Pharmacy: [facility]#[id number] Start Date: 12/30/19 Status: Ordered magnesium oxide 400 mg (240 mg elemental magnesium) oral tablet See Instructions, 1 tab po BID, # 20 tab, 0 Refill(s), 02/04/21 17:40:00 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, Pharmacy: [facility]#[id number] Start Date: 02/05/20 Stop Date: 02/04/21 Status: Ordered metoprolol succinate 50 mg oral tablet, extended release 50 mg = 1 tab, Oral, Daily, # 30 tab, 0 Refill(s) Start Date: 12/30/19 Status: Ordered Prograf 2 mg =, Oral, every 12 hr, 0 Refill(s) Start Date: 12/18/18 Status: Ordered promethazine 25 mg oral tablet 25 mg =, Oral, every 6 hr, PRN nausea/vomiting, # 20 tab, 0 Refill(s), Pharmacy: [facility][id number] Start Date: 04/28/19 Stop Date: 05/03/19 Status: Ordered sodium bicarbonate 650 mg oral tablet 1,300 mg = 2 tab, Oral, TID, # 60 tab, 0 Refill(s) Start Date: 12/18/18 Status: Ordered tiZANidine 2 mg oral capsule 2 mg = 1 cap, Oral, every 8 hr, PRN as needed for muscle spasm, # 90 cap, 0 Refill(s), Pharmacy: [facility]/pharmacy #[id number] Start Date: 09/27/19 Stop Date: 10/27/19 [...] Name Date Urinalysis with Culture if Indicated .Urine Volume 02/05/20 Urinalysis Microscopic 02/05/20 Automated Diff 02/05/20 CBC w/ Diff 02/05/20 Comprehensive Metabolic Panel (CMP) 01/18 11/06 Magnesium Level 02/05/20 Most recent to oldest [Reference Range]: 1 WBC [4.0-11.5 K/mcL] 3.8 K/mcL *LOW* (02/05/20 3:37 PM) RBC [4.20-5.40 x10^6/mcL] 2.91 x10^6/mcL *LOW* (02/05/20 3:37 PM) Neutro Auto 56.5 % *NA* (02/05/20 3:37 PM) Lymph Auto 23.0 % *NA* (02/05/20 3:37 PM) Chippewa Auto 7.3 % *NA* (02/05/20 3:37 PM) Basophil Auto 0.3 % *NA* (02/05/20 3:37 PM) BUN [7-18 mg/dL] 20 mg/dL *HI* (02/05/20 3:37 PM) UA Color Yellow (02/05/20 3:50 PM) UA WBC [0-5] 0-5 (02/05/20 3:50 PM) Glucose Level [70-110 mg/dL] 102 mg/dL (02/05/20 3:37 PM) Potassium Level [3.5-5.1 mmol/L] 4.1 mmo l/L (02/05/20 3:37 PM) Baso Absolute [0.0-0.1 x10^3/mcL] 0.0 x1 0^3/mcL (02/05/20 3:37 PM) MCV [78.0-100.0 fL] 106.2 fL *HI* (02/05/20 3:37 PM) UA Urobilinogen [Normal mg/dL] Normal mg /dL (02/05/20 3:50 PM) UA Bili [Negative mg/dL] Negative mg/dL (02/05/20 3:50 PM) UA Ketones [Negative mg/dL] Negative mg/ dL (02/05/20 3:50 PM) AST [15-37 unit/L] 47 unit/L *HI* (02/05/20 3:37 PM) ALT [12-78 unit/L] 45 unit/L (02/05/20 3:37 PM) MCHC [29.0-37.5 g/dL] 33.0 g/dL (02/05/20 3:37 PM) Sodium Level [136-145 mmol/L] 143 mmol/L (02/05/20 3:37 PM) UA RBC [0-3] 0-3 (02/05/20 3:50 PM) UA Leuk Est [Negative Guille/mcL] Negative Guille/mcL (02/05/20 3:50 PM) Lymph Absolute [0.8-5.8 x10^3/mcL] 0.9 x 10^3/mcL (02/05/20 3:37 PM) UA Nitrite [Negative] Negative (02/05/20 3:50 PM) UA Glucose [Normal mg/dL] Normal mg/dL (02/05/20 3:50 PM) Hct [36.0-48.0 %] 30.9 % *LOW* (02/05/20 3:37 PM) UA Bacteria [None Seen] Moderate *ABN* (02/05/20 3:50 PM) Calcium Level [8.5-10.1 mg/dL] 8.8 mg/dL (02/05/20 3:37 PM) Chippewa Absolute [0.1-1.5 x10^3/mcL] 0.3 x1 0^3/mcL (02/05/20 3:37 PM) Albumin Level [3.4-5.0 g/dL] 2.6 g/dL *LOW* (02/05/20 3:37 PM) Protein Total [6.4-8.2 g/dL] 5.5 g/dL *LOW* (02/05/20 3:37 PM) UA Protein [Negative mg/dL] Negative mg/ dL (02/05/20 3:50 PM) MCH [27.0-34.0 pg] 35.1 pg *HI* (02/05/20 3:37 PM) Magnesium Level [1.8-2.4 mg/dL] 1.7 mg/d L *LOW* (02/05/20 3:37 PM) Neutro Absolute [1.5-8.1 x10^3/mcL] 2.2 x10^3/mcL (02/05/20 3:37 PM) Bilirubin Total [0.0-1.0 mg/dL] 1.1 mg/d L *HI* (02/05/20 3:37 PM) Hgb [12.0-16.0 g/dL] 10.2 g/dL *LOW* (02/05/20 3:37 PM) Alk Phos [46-130 unit/L] 259 unit/L *HI* (02/05/20 3:37 PM) UA Blood [Negative Rocael/mcL] 50 Rocael/mcL *ABN* (02/05/20 3:50 PM) MPV [6.0-10.0 fL] 11.5 fL *HI* (02/05/20 3:37 PM) UA Mucous [None Seen] Few (02/05/20 3:50 PM) UA Spec Grav 1.005 *NA* (02/05/20 3:50 PM) Platelets [150-450 K/mcL] 55 K/mcL *LOW* (02/05/20 3:37 PM) CO2 [21-32 mmol/L] 26 mmol/L (02/05/20 3:37 PM) Eos Absolute [0.0-0.5 x10^3/mcL] 0.5 x10 ^3/mcL (02/05/20 3:37 PM) UA Squam Epithelial [None Seen] Moderate *ABN* (02/05/20 3:50 PM) UA pH 7 *NA* (02/05/20 3:50 PM) eGFR Non-AA 25 *NA* (02/05/20 3:37 PM) eGFR AA 30 *NA* (02/05/20 3:37 PM) UA Appear [Clear] Hazy (02/05/20 3:50 PM) Chloride Level [97-107 mmol/L] 112 mmol/ L *HI* (02/05/20 3:37 PM) RDW-CV [11.5-15.0 %] 13.7 % (02/05/20 3:37 PM) Imm Gran Absolute [0.0-0.1 x10^3/mcL] 0. 0 x10^3/mcL (02/05/20 3:37 PM) Imm Gran Auto 0.3 % *NA* (02/05/20 3:37 PM) NRBC Auto 0.0 % *NA* (02/05/20 3:37 PM) NRBC Absolute [0.0-0.0 x10^3/mcL] 0.0 x1 0^3/mcL (02/05/20 3:37 PM) UA Culture Ind?. Not Indicated (02/05/20 3:50 PM) Urine Srce Clean Catch (02/05/20 3:50 PM) UA Amorph Moderate (02/05/20 3:50 PM) Urine Volume 12 mL (02/05/20 3:50 PM) Creatinine Level [0.60-1.30 mg/dL] 2.33 mg/dL *HI* (02/05/20 3:37 PM) Anion Gap [5-15 mmol/L] 9 mmol/L (02/05/20 3:37 PM) Eos, Auto 12.6 % *NA* (02/05/20 3:37 PM) UA Yeast [None Seen] None Seen (02/05/20 3:50 PM) Radiology Reports * Exam Date Time Procedure Performing Provider Status 02/05/20 3:39 PM XR Chest 1 View Franci Givens RT( R)(CT); Auth (Verified) Notes: (XR Chest 1 View) Reason For Exam: cough and sob XR Chest 1 View EXAM DESCRIPTION: XR Chest 1 View REASON FOR STUDY: cough and sob/ migrane DURATION: 2 days PREVIOUS SURGERY: liver transplant/tubal ligation with albation/ SMOKING HISTORY: TECHNIQUE: Frontal radiographic view of the chest acquired. COMPARISON: 09/29/2019. FINDINGS: LUNGS/PLEURA: Prominence of the interstitium and mild hazy opacity likely due to mild vascular congestion. No focal consolidation. No pleural effusion or pneumothorax. HEART/MEDIASTINUM: Heart is moderately enlarged scratch that the heart is enlarged but unchanged. HARDWARE/LINES/TUBES: None. BONES: No acute findings. OTHER: No other significant finding. IMPRESSION: 1. Unchanged cardiomegaly and mild vascular congestion. 2. No evidence of a new acute cardiopulmonary abnormality. THIS IS AN ELECTRONICALLY VERIFIED FINAL REPORT 02/05/2020 3:51 PM - Electronically signed by Dustin Gonzalez M.D. CH: ROSINA Report ID: [id number] Reading Location: [id number] Final Dictated by: Jr Gonzalez Chester Dictated DT/TM: 02/05/2020 3:54 pm Signed by: Jr Gonzalez Chester Earl MD Signed (Electronic Signature): 02/05/2020 3:54 pm Vital Signs Most recent to oldest [Reference Range]: 1 Peripheral Pulse Rate [60-100 bpm] 74 bp m (02/05/20 2:29 PM) Respiratory Rate [14-20 br/min] 20 br/mi n (02/05/20 2:29 PM) Blood Pressure [90-140/60-90 mmHg] 147/9 0mmHg *HI* (02/05/20 2:29 PM) Weight 72.57 kg (02/05/20 2:29 PM) Weight Dosing 72.57 kg (02/05/20 2:34 PM) Height 157.480 cm (02/05/20 2:29 PM) Height/Length Measured (inches) 157.480 cm (02/05/20 2:29 PM) Height/Length Dosing 157.480 cm (02/05/20 2:34 PM) Body Mass Index Estimated 29 (02/05/20 2:29 PM) Social History Social History Type Response Smoking Status 4 or less cigarettes (less than 1/4 pack)/day in last 30 days entered on: 07/16/19 Sex Hospital Discharge Instructions Follow Up Care 02/05/2020 14:29:14 With:Hermes Ramirez Address: [address] [place] [address] Business (1) When: Unknown Comments:===>You were evaluated in the emergency department today for headache, chills, cough, shortness of breath, shoulder blade area pain, draining right ear, and body aches. Evaluation here involved urine and blood tests, an [facility] COVID-19 nasal swab test, and a chest x-ray, in addition to heart rate and rhythm, blood pressure, and blood oxygen measurements.Your diagnoses are headache, viral syndrome, chronic anemia, and hypomagnesemia (low magnesium)Your COVID-19 test was sent to the [place] department of Public Health. You will be informed within the next several days if the test ispositive for COVID- 19.Treatment today included haloperidol + diphenhydramine headache medication.Return to the emergency department if you are getting sicker and sicker - too sick, or if any concerning or urgent problem develops.Outpatient follow-up care with your primary care doctor and at your upcoming neurology consultation appointment. Continue medication, activity, diet, and care as previously prescribed / instructed. Initially limited, progressively increasing activity as you feel better.Plenty of rest.Magnesium oxide -1 pill twice daily for 10 days.Take 1 multivitamin pill with folic acid once daily. Acetaminophen (Tylenol) 325 mg pills - 2 pills every FOUR hours (maximum 8 pills per day, 3 day maximum) as needed for fever or body aches. (non-prescription) Continue COVID-19 precautions, social distancing, and quarantine activities. Frequent hand washing. <Prescriptions> and <Medications That Have Not Changed> lists below are generated from past information entered into our computer system. They are automatically printed on this discharge document and may not be accurate.
--- OUTSIDE RECORDS SUMMARY | 2024-03-20 11:36 | XMS_ITS | Continuity of Care Document ---
Author Organization [facility] Address [address] [place] [address] Care Team Providers Care Industrial Commercial Groundskeeper Name Role Phone Hermes Ramirez Primary Care Physician [phone] Encounter [facility] [id number] Date(s): 04/15/23 - 04/16/[address] [address] [place] Encounter Diagnosis Classic migraine(Discharge Diagnosis) - 04/15/23 Discharge Disposition: Home or Self Care Attending [...] Extracted from: Title:ED Provider Note Author:Andrew Francis Date:04/15/23 Assessment/Plan Classic migraine??G43.109 Patient Discharge Condition good Discharge Disposition home Patient Education Chronic Migraine Headache, [id number] Follow Up With When Contact Information Follow [...] Daily, # 30 tab, 11 Refill(s), Pharmacy: [place], [place], 157.48, cm, 01/04/23 15:03:00 CDT, Height/Length Dosing, 81.65, kg, 01/04/23 15:03:00 CDT, Weight Dosing Start Date: 01/11/23 Status: Ordered aspirin 81 mg oral delayed release tablet 81 mg = 1 tab, Oral, Daily, # 30 tab, 0 Refill(s) Start Date: 04/05/21 Status: Ordered Bactrim DS 800 mg-160 mg oral tablet 1 tab, Oral, BID, # 10 tab, 0 Refill(s), Pharmacy: [place], [place], 157.48, cm, 04/06/23 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, Height, 85.28, kg, 04/06/23 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: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, Weight Dosing Start Date: 04/06/23 Stop Date: 04/11/23 Status: Ordered gabapentin 300 mg oral capsule [...] BID, # 60 cap, 11 Refill(s), Pharmacy: [place], [place], 157.48, cm, 01/04/23 15:03:00 CDT, Height/Length [...] [35.8-37.3 Deg C] 37 De g C (04/15/23 11:27 PM) Peripheral Pulse Rate [60-100 bpm] 83 bp m (04/15/23 11:27 PM) Respiratory Rate [12-24 br/min] 20 br/mi n (04/15/23 11:27 PM) Blood Pressure [90-140/60-90 mmHg] 159/9 9mmHg *HI* (04/15/23 11:27 PM) Mean Arterial Pressure, Cuff [70-110 mmH g] 119 mmHg *HI* (04/15/23 11:27 PM) Weight 81.65 kg (04/15/23 11:27 PM) Weight Dosing 81.650 kg (04/15/23 11:27 PM) Height 157 cm (04/15/23 11:27 PM) Body Mass Index 33.13 kg/m2 (04/15/23 11:27 PM) Social History Social History Type Response Tobacco Current everyday tob acco user Tobacco Use:. 1 Sex 1Pt states that she smokes half a pack a day. Hospital Discharge Instructions Patient Education 04/15/2023 23:50:13 Chronic Migraine Headache, [id number] Chronic Migraine Headache A migraine headache is [...] these instructions at home: Medicines ??? Take [id number] and prescription medicines only as told by [...] Headache and Migraine Patients (CHAMP): headachemigraine.org ??? [employer] Migraine Foundation: americanmigrainefoundation.org ??? National Headache Foundation: [...] provider. Document Revised: 04/22/2020 Document Reviewed: 04/22/2020 [employer] Patient Education ?? 2022 [employer]. Follow Up Care 04/15/2023 23:27:50 With:Follow up with primary care provider Address:Unknown When:1 to 2 days Physician Emergency department Note * Andrew Francis DO: PERFORM, MODIFY Event Display: ED Note Physician Authored Date: [id number] MISHA JACKSON :1980 Age:42 years Sex:Female Visit Date:04/15/2023 Primary Care Physician: Hermes Ramirez MD Basic Information Time Seen: Andrew Francis DO / 04/15/2023 23:34 History Of Present Illness: Planes of right-sided headache??for almost 24 hours??states no relief with Tylenol??when ice packs??states is her usual pattern??and she is light sensitive??nauseous Review of Systems: Constitutional:?No??fevers,?No??chills,?No??sweats Eye:?No??recent visual problems ENT:?No??ear pain,?No??nasal congestion,?No??sore throat Respiratory:?No??shortness of breath,?No??cough Cardiovascular:?No??Chest pain,?No??palpitations,?No??syncope Gastrointestinal:?Positive fornausea,?No??vomiting,?No??diarrhea Genitourinary:?No??hematuria Clemente/Lymph:?No??bruising tendency,?No??swollen lymph glands Endocrine:?No??excessive thirst,??No??excessive hunger Musculoskeletal:??No??back pain,??No??neck pain,??No??joint pain,??No??muscle pain,??No??decreased range of motion Integumentary:?No??rash,?No??pruritus,?No??abrasions Neurologic: Alert & oriented X 4 c/o headache Psychiatric:?No??anxiety,?No??depression Physical Exam General: Alert and oriented, [...] and affect. Procedure No Qualifying Data Reexamination/Reevaluation improved Assessment/Plan Classic migraine??G43.109 Patient Discharge Condition good Discharge Disposition home Patient Education Chronic Migraine Headache, Vxwg-st-Ywme Follow Up With When Contact Information Follow up with primary care provider Within 1 to 2 days Additional Instructions: Medication Reconciliation Unchanged amLODIPine [...] 2 times a day. Refills: 11. ?? mirtazapine (Remeron)7.5 Milligrams Oral (given by mouth) every day. ?? mycophenolate mofetil (mycophenolate mofetil 250 mg oral capsule) ?? Other Prescription (SEMAGLUTIDE/NAD+ 1000MCG-20MG/)INJECT 25 UNITS (0.25ML OR 0.25MG) SUBCUTANEOUSLY ONCE A WEEK FOR 4 WEEKS THEN 50 UNITS (0.5ML OR 0.5MG) SUBCUTANEOUSLY ONCE A WEEK FOR 4 WEEKS +SYRINGE KIT 10. ?? sulfamethoxazole-trimethoprim (Bactrim DS 800 mg-160 mg oral tablet)1 tab Oral (given by mouth) 2 times a day for 5 Days. Refills: 0. ?? topiramate (topiramate 25 mg oral tablet)TAKE ONE TABLET BY MOUTH TWICE DAILY along with 50mg TO equal 75mg TWICE DAILY. ?? topiramate (topiramate 50 mg oral tablet)1 tab. TAKE ONE TABLET BY MOUTH TWICE DAILY along with 25mg TWICE DAILY TO equal 75mg TWICE DAILY. ?? venlafaxine (venlafaxine 37.5 mg oral capsule, [...] thrombocytopenic purpura Lumbar back pain Migraine headache Nausea Numbness and tingling of right arm Obesity Pain of right scapula Pain, joint, multiple sites Right shoulder pain Right-sided chest wall pain Squamous cell carcinoma in situ Tachycardia Thrombocytopenia Tobacco use UTI (urinary tract infection) Weight gain Historical Abdominal pain in female [...] Liver transplant disorder Migraine headache Migraine headache Otalgia of right ear Otitis externa of right ear Rash Recurrent streptococcal tonsillitis Right otitis externa Skin change Sore throat Sprain of knee Upper respiratory infection Urinary tract infection in female Viral upper respiratory infection Yellow eyes Procedure/Surgical History ???Screening Pap Smear; Obtaining, Preparing And Conveyance Of Cervical/Vaginal Smear To Laboratory(07/2022)???Examining eye (2021)???Bladder washout (12/14/2020)???Kidney transplant (05/13/2020)???Tx - Liver transplantation (05/08/2020)???Mammogram (2020)??? delivery???cyst removal from [facility]???Hernia???liver transplant Allergies NSAIDs Toradol??(Kidney failure as a complication of care) aspirin??(Medication interaction) azithromycin??(Unknown) codeine??(Unknown, Itching) gentamicin morphine??(redness, Itching) erythromycin??(Medication interaction) Social History Alcohol Never Electronic Cigarette/Vaping Electronic Cigarette Use: Never. Substance Use Never Tobacco Current everyday tobacco user Tobacco Use:.- Comments: Pt states that she smokes half a pack a day. Family History Cancer: Mother. Electronically Signed on 04/16/23 12:27 AM Andrew Francis DO Patient Care team information Care Team Personnel Name: Jessee Jones BUSBOY Position: Physician Member Role: Nurse Practitioner Address: Address: [address] [facility], [address] [place], [place] [address]- Name: Latoya Marquez BUSBOY Position: Physician Member Role: Nurse Practitioner Address: Address: [address] [place] [address]- Name: Leonila Gonzalez BUSBOY Position: Physician Member Role: Nurse Practitioner Address: Address: [address] [place] [address]- Name: Beth Brandt BUSBOY Position: Physician Member Role: Nurse Practitioner Address: Address: [address] [place] [address] Name: Hermes Ramirez MD Position: Physician Member Role: Primary Care Physician Address: Address: [address] [place] [address], [address] [place] [address]- Name: nAamika Gore MD Position: Physician - Women's Health Member Role: Informed Provider Name: Pillo Moe BUSBOY Position: Physician Member Role: Nurse Practitioner Address: Address: [address] [facility], [address] [facility] Care Team Related Persons Name: STACIA JONES Address: Home [address] [place], [place] [id number] Name: ROBYN JAMA
--- OUTSIDE RECORDS SUMMARY | 2024-03-20 11:36 | XMS_ITS | Continuity of Care Document ---
Author Organization [facility] Address [address] [place] [address] Care Team Providers Care Public Works Laborer Name Role Phone Hermes Ramirez Primary Care Physician Encounter [facility] [id number] Date(s): 06/22/23 - 06/22/[address] [address]- [place] Encounter Diagnosis Headache, chronic migraine without aura, intractable(Discharge Diagnosis) - 06/22/23 Discharge Disposition: Home or Self Care Attending [...] and Plan Extracted from: Title:ED Provider Note Author:Car Roach MD Date:06/22/23 Assessment/Plan 1.??Headache, chronic migraine without aura, intractable??G43.719 Advised to follow-up with PCP and urology??for further evaluation of??frequent headaches Orders: Benadryl, 50 mg = 1 mL, Intramuscular, Injection, Once, First Dose: 06/22/23 18:00:00 CDT, Stop Date: 06/22/23 18:00:00 CDT, Physician Stop, Routine morphine, 2 mg = 1 mL, Intramuscular, Injection, Once, First Dose: 06/22/23 18:00:00 CDT, Stop Date: 06/22/23 18:00:00 CDT, Physician Stop, Routine Phenergan, 25 mg = 1 mL, Intramuscular, Injection, Once, First Dose: 06/22/23 18:00:00 CDT, Stop Date: 06/22/23 18:00:00 CDT, Physician Stop, Routine Patient Discharge Condition Stable Discharge Disposition Discharged to home Patient Education Chronic Migraine Headache, Kwsw-fi-Vihh Follow Up With When Contact Information Hermes Ramirez MD Within 1 month [address] [facility], [address] [place] [address]- ?? Additional Instructions: Future Appointments Future Scheduled Tests [...] Daily, # 30 tab, 11 Refill(s), Pharmacy: [place], [place], 157.48, cm, 01/04/23 15:03:00 CDT, Height/Length [...] BID, # 60 cap, 11 Refill(s), Pharmacy: [place], [place], 157.48, cm, 01/04/23 15:03:00 CDT, Height/Length Dosing, 81.65, kg, 01/04/23 15:03:00 CDT, Weight Dosing Start Date: 01/11/23 Status: Ordered pantoprazole 40 mg oral delayed release tablet 1 tab, Oral, Daily, # 90 tab, 0 Refill(s), Pharmacy: [id number], 157.48, cm, 06/07/23 16:07:00 CDT, Height, 89.36, [...] QID, # 360 tab, 0 Refill(s), Pharmacy: [id number], 157.48, cm, 06/07/23 16:07:00 CDT, Height, 89.36, [...] Oral [35.8-37.3 Deg C] 36.8 Deg C (06/22/23 5:40 PM) Peripheral Pulse Rate [60-100 bpm] 92 bp m (06/22/23 6:38 PM) Heart Rate Monitored [60-100 bpm] 88 bpm (06/22/23 5:40 PM) Respiratory Rate [12-24 br/min] 18 br/mi n (06/22/23 6:38 PM) 16 br/min (06/22/23 5:40 PM) Blood Pressure [90-140/60-90 mmHg] 146/8 8mmHg *HI* (06/22/23 5:40 PM) Mean Arterial Pressure, Cuff [65-140 mmH g] 107 mmHg (06/22/23 5:40 PM) Weight Estimated 83.91 kg (06/22/23 5:40 PM) Body Mass Index Estimated 33.83 kg/m2 (06/22/23 5:40 PM) Height/Length Estimated 157.48 cm (06/22/23 5:40 PM) Social History Social History Type Response Tobacco Current everyday tob acco user Tobacco Use:. 1 Sex 1Pt states that she smokes half a pack a day. Hospital Discharge Instructions Patient Education 06/22/2023 17:21:35 Chronic Migraine Headache, Mitq-ku-Wmfl Chronic Migraine Headache A migraine headache is [...] these instructions at home: Medicines ??? Take yopq-ksp-vnvxfgh and prescription medicines only as told by [...] Headache and Migraine Patients (CHAMP): [email or web address].org ??? [place] Migraine Foundation: [email or web address].org ??? National Headache Foundation: [...] care provider. Document Revised: 08/18/2022 Document Reviewed: 04/22/2020 [employer] Patient Education ?? 2022 [employer] Follow Up Care 06/22/2023 17:03:27 With:Hermes Ramirez MD Address: [address] [place] [address], [address] [place] [address]- When:1 month Physician Emergency department Note * Felicia Roach MD: PERFORM Event Display: ED Note Physician Authored Date: [id number] MISHA JACKSON :1980 Age:42 years Sex:Female Visit Date:06/22/2023 Primary Care Physician: Hermes Ramirez MD Basic Information Time Seen: Felicia Roach MD / 06/22/2023 17:13 History Of Present Illness: This is a case of a 42-year-old female with multiple medical problems??including recurrent headacherequiring frequent ER visits,??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 Review of records reveals she is??been in our ER almost every week for the past months??requiring a dose of morphine and Phenergan for her headaches. Review of Systems: Constitutional:?No??fevers,?No??chills,?No??sweats Eye:?No??recent visual problems ENT:?No??ear pain,?No??nasal congestion,?No??sore throat Respiratory:?No??shortness of breath,?No??cough Cardiovascular:?No??Chest pain,?No??palpitations,?No??syncope Gastrointestinal:?Nonausea,?No??vomiting,?No??diarrhea Genitourinary:?No??hematuria Clemente/Lymph:?No??bruising tendency,?No??swollen lymph glands Endocrine:?No??excessive thirst,??No??excessive hunger Musculoskeletal:??No??back pain,??No??neck pain,??No??joint pain,??No??muscle pain,??No??decreased range of motion Integumentary:?No??rash,?No??pruritus,?No??abrasions Neurologic: Alert & oriented X 4 Psychiatric:?No??anxiety,?No??depression Physical Exam General: Alert and oriented, well nourished,?No??acute distress Eye: PERRL, EOMI,?Normal?conjunctiva. ??Photosensitive. ??No facial asymmetry HENT: Normocephalic, clear tympanic membranes,?Normal? hearing, moist oral mucosa,?No??scleral icterus,?No??sinus tenderness Neck: Supple, non-tender,?No??carotid bruits,?No??JVD,?No??lymphadenopathy Lungs:??Clear to auscultation?? Respiration:??Non-Labored Heart:?Normal? rate,?Regular??rhythm,?No??murmur,?No??gallop,?No??edema Abdomen: Soft, non-tender, non-distended,?Normal? bowel sounds,?No??masses Musculoskeletal:?Normal? range of motion and strength,?No??tenderness,?No??swelling Skin: Skin is warm, dry and pink,?No??rashes,?No??lesions Neurologic: Awake, alert and oriented X4, CN II-XII intact Psychiatric: Cooperative, appropriate mood and affect Medical Decision Making: Recurrent right-sided headache Given morphine 2 mg IM and Phenergan 25 mg IM??and Benadryl 50 mg IM Procedure No Qualifying Data Assessment/Plan 1.??Headache, chronic migraine without aura, intractable??G43.719 Advised to follow-up with PCP and urology??for further evaluation of??frequent headaches Orders: Benadryl, 50 mg = 1 mL, Intramuscular, Injection, Once, First Dose: 06/22/23 18:00:00 CDT, Stop Date: 06/22/23 18:00:00 CDT, Physician Stop, Routine morphine, 2 mg = 1 mL, Intramuscular, Injection, Once, First Dose: 06/22/23 18:00:00 CDT, Stop Date: 06/22/23 18:00:00 CDT, Physician Stop, Routine Phenergan, 25 mg = 1 mL, Intramuscular, Injection, Once, First Dose: 06/22/23 18:00:00 CDT, Stop Date: 06/22/23 18:00:00 CDT, Physician Stop, Routine Patient Discharge Condition Stable Discharge Disposition Discharged to home Patient Education Chronic Migraine Headache, Ersi-eo-Vrhx Follow Up With When Contact Information Hermes Ramirez MD Within [address] [place] [address], [address] [place] [id number]- Additional Instructions: Medication Reconciliation Unchanged amLODIPine (amLODIPine [...] Liver transplantation (05/08/2020)???Mammogram (2020)??? delivery???cyst removal from [facility]???Hernia???liver transplant Allergies NSAIDs Toradol??(Kidney failure as a complication of care) aspirin??(Medication interaction) azithromycin??(Unknown) codeine??(Unknown, Itching) gentamicin morphine??(redness, Itching) erythromycin??(Medication interaction) Social History Alcohol Never Electronic Cigarette/Vaping Electronic Cigarette Use: Never. Substance Use Never Tobacco Current everyday tobacco user Tobacco Use:.- Comments: Pt states that she smokes half a pack a day. Family History Cancer: Mother. Attending Attestation Paul Electronically Signed on 06/22/23 05:22 PM Felicia Roach MD Patient Care team information Care Team Personnel Name: Jessee Jones RN GERIATRIC Position: Physician Member Role: Nurse Practitioner Address: Address: [address] [facility], [address] [place], [place] [address]- Name: Latoya Marquez RN GERIATRIC Position: Physician Member Role: Nurse Practitioner Address: Address: [address] [place] [address]- Name: Leonila Gonzalez RN GERIATRIC Position: Physician Member Role: Nurse Practitioner Address: Address: [address] [place] [id number]- Name: Beth Brandt RN GERIATRIC Position: Physician Member Role: Nurse Practitioner Address: Address: [address] [place] [address] [place] [address] Name: Hermes Ramirez MD Position: Physician Member Role: Informed Provider Address: Address: [address] [facility], [address] [place], [facility]- Name: Pillo Moe RN GERIATRIC Position: Physician Member Role: Nurse Practitioner Address: Address: [address] [facility], [address] [place], [facility] Care Team Related Persons Name: STACIA JONES Address: Home [address] [id number] Name: MADY CHEN Name: MADY CHEN
--- OUTSIDE RECORDS SUMMARY | 2024-03-20 11:37 | XMS_ITS | Continuity of Care Document ---
Author Organization [facility] Address [address] [place] [address] Care Team Providers Care Business Intelligence Manager Name Role Phone Hermes Ramirez Primary Care Physician Encounter [facility] [id number] Date(s): 08/02/22 - 08/02/22 [place] [address] [place], [place] [address] Discharge Disposition: Left Without Being Seen Attending Physician: Mike Malik MD Admitting Physician: [...] wheezing, # 6.7 g, 0 Refill(s), Pharmacy: [place], [place], 73, cm, 09/13/21 23:53:00 CDT, Height/Length [...] needed, # 12 cap, 0 Refill(s), Pharmacy: [place], [place], 157, cm, 11/04/21 20:02:00 CDT, Height/Length [...] BID, # 180 tab, 3 Refill(s), Pharmacy: [facility], 157.48, cm, 02/07/22 18:45:00CST, Height/Length Dosing, 72.57, kg, 02/07/22 18:45:00 STOREROOM CLERK, Weight Dosing Start Date: 02/13/22 Status: Ordered Pepcid 20 mg oral tablet 20 mg = 1 tab, Oral, BID, 0 Refill(s) Start Date: 09/29/20 Status: Ordered Phenergan 25 mg oral tablet 25 mg = 1 tab, Oral, every 6 hr, PRN as needed for nausea/vomiting, # 20 tab, 0 Refill(s), Pharmacy: [facility] [place], 157, cm, 09/29/21 23:03:00 CDT, Height/Length [...] Oral [35.8-37.3 Deg C] 37.3 Deg C (08/02/22 8:24 PM) Peripheral Pulse Rate [60-100 bpm] 120 b pm *HI* (08/02/22 8:24 PM) Respiratory Rate [12-24 br/min] 20 br/mi n (08/02/22 8:24 PM) Blood Pressure [90-140/60-90 mmHg] 155/9 1mmHg *HI* (08/02/22 8:24 PM) Weight Dosing 79.00 kg (08/02/22 9:16 PM) Weight Estimated 79.00 kg (08/02/22 8:24 PM) Height/Length Dosing 157.000 cm (08/02/22 9:16 PM) Height/Length Estimated 157.000 cm (08/02/22 8:24 PM) Social History Social History Type Response Tobacco Current everyday tob acco user Tobacco Use:. Sex Patient Care team information Care Team Personnel Name: Jessee Jones INTELLIGENCE APPLICATIONS Position: Physician Member Role: Nurse Practitioner Address: Address: [address] [place] [address], [address] [place] [address]- Name: Latoya Marquez INTELLIGENCE APPLICATIONS Position: Physician Member Role: Nurse Practitioner Address: Address: [address] [place] [address]- Name: Leonila Gonzalez INTELLIGENCE APPLICATIONS Position: Physician Member Role: Nurse Practitioner Address: Address: [address] [place] [address]- Name: Beth Brandt INTELLIGENCE APPLICATIONS Position: Physician Member Role: Nurse Practitioner Address: Address: [address] [place] [address] Name: Hermes Ramirez MD Position: Physician Member Role: Informed Provider Address: Address: [address] [facility], [address] [place] [address]- [place] Name: Pillo Moe INTELLIGENCE APPLICATIONS Position: Physician Member Role: Nurse Practitioner Address: Address: [address] [place] [address], [address] [facility] Name: Carson Hood RN Position: Nurse Member Role: ED Nurse Name: Mike Malik MD Position: Physician Member Role: Admitting Physician Address: Address: [address] [place] [address] [place] [address]- Care Team Related Persons Name: STACIA JONES Address: Home [address] [place], [place] [id number] Name: ROBYN JAMA Address: Home
--- OUTSIDE RECORDS SUMMARY | 2024-03-20 11:37 | XMS_ITS | Continuity of Care Document ---
Author Organization [facility] Address [address] [place] [address] Care Team Providers Care Counter Former Name Role Phone Hermes Ramirez Primary Care Physician [phone] Encounter [facility] [id number] Date(s): 09/12/23 - 09/12/[address] [address] [place] Discharge Disposition: Home or Self Care Attending Physician: Hermes Ramirez MD Admitting Physician: Hermes Ramirez MD Allergies, Adverse Reactions, Alerts Substance Reaction Severity Status codeine Unknown Itching Severe Active gentamicin Moderate Active morphine 1 redness Itching Mild Active NSAIDs Severe Active erythromycin Medication interaction Activ e azithromycin [...] Daily, # 30 tab, 11 Refill(s), Pharmacy: [facility] [place] [place], 157.48, cm, 01/04/23 15:03:00 CDT, Height/Length Dosing, 81.65, kg, 01/04/23 15:03:00 CDT, Weight Dosing Start Date: 01/11/23 Status: Ordered aspirin 81 mg oral delayed release tablet 81 mg = 1 tab, Oral, Daily, # 30 tab, 0 Refill(s) Start Date: 04/05/21 Status: Ordered gabapentin 300 mg oral capsule 600 mg = 2 cap, Oral, BID, # 120 cap, 2 Refill(s), Pharmacy: [id number], 157.48, cm, 07/23/23 17:59:00 CDT, Height, [...] BID, # 60 cap, 11 Refill(s), [facility] [place] [facility] [place], 157.48, cm, 01/04/23 15:03:00 CDT, Height/Length Dosing, 81.65, kg, 01/04/23 15:03:00 CDT, Weight Dosing Start Date: 01/11/23 Status: Ordered Nicotrol Inhaler 10 mg inhalation device See Instructions, 6-16 cartriges/day, # 1 EA, 2 Refill(s), Pharmacy: [id number], 157.48, cm, 08/29/23 14:22:00 CDT, Height, 88, [...] QID, # 360 tab, 0 Refill(s), Pharmacy: [id number], 157.48, cm, 08/29/23 14:22:00 CDT, Height, 88, kg, 08/29/23 14:27:00 CDT, Weight Dosing Start Date: 09/05/23 Status: Ordered venlafaxine 37.5 mg oral capsule, extended release 37.5 mg = 1 cap, Oral, Daily, # 90 cap, 0 Refill(s), Pharmacy: [id number] [place], 157.48, cm, 08/29/23 14:22:00 CDT, Height, [...] information Care Team Personnel Name: Jessee Jones PLANE TENDER Position: Physician Member Role: Nurse Practitioner Address: Address: [address] [place] [address], [address] Name: Latoya Marquez PLANE TENDER Position: Physician Member Role: Nurse Practitioner Address: Address: [address] [place] [address] Name: Leonila Gonzalez PLANE TENDER Position: Physician Member Role: Nurse Practitioner Address: Address: [address] [place] [address] Name: Beth Brandt PLANE TENDER Position: Physician Member Role: Nurse Practitioner Address: Address: [address] [place] [address] Name: Hermes Ramirez MD Position: Physician Member Role: Informed Provider Address: Address: [address] [place] [address], [address] Name: Pillo Moe PLANE TENDER Position: Physician Member Role: Nurse Practitioner Address: Address: [address] [place] [address], [facility] [address] [facility] Care Team Related Persons Name: STACAI JONES Address: Home [address] [id number] Name: ROBYN JAMA Name: NIAF CHOI Name: MADY CHEN Name: MADY CHEN
--- OUTSIDE RECORDS SUMMARY | 2024-03-20 11:37 | XMS_ITS | Continuity of Care Document ---
Author Organization [facility] Address [address] [place] [address] Care Team Providers Care Diffusion Furnace Operator Name Role Phone Hermes Ramirez Chris Primary Care Physician Encounter [facility] [id number] Date(s): 03/22/22 - 03/22/[address] [address] Encounter Diagnosis Migraine headache(Discharge Diagnosis) - 03/22/22 Discharge Disposition: Home or Self Care Attending [...] wheezing, # 6.7 g, 0 Refill(s), Pharmacy: [facility] [place], [place], 73, cm, 09/13/21 23:53:00 CDT, Height/Length [...] needed, # 12 cap, 0 Refill(s), Pharmacy: [place], [place], 157, cm, 11/04/21 20:02:00 CDT, Height/Length [...] BID, # 180 tab, 3 Refill(s), Pharmacy: [facility], 157.48, cm, 02/07/22 18:45:00CST, Height/Length Dosing, 72.57, kg, 02/07/22 18:45:00 HEADER SETUP OPERATOR, Weight Dosing Start Date: 02/13/22 Status: Ordered morphine 4 mg/mL preservative-free injectable solution 4 mg = 1 mL, IM, Once, 0 Refill(s) Start Date: 03/19/22 Status: Ordered oseltamivir 30 mg oral capsule 30 mg = 1 cap, Oral, BID, # 10 cap, 0 Refill(s), Pharmacy: [place], [place], 157.48, cm, 03/16/22 18:01:00 HEADER SETUP OPERATOR, Height/Length Dosing, 77.11, kg, 03/16/22 18:01:00 HEADER SETUP OPERATOR, Weight Dosing Start Date: 03/16/22 Status: Ordered [...] nausea/vomiting, # 20 tab, 0 Refill(s), Pharmacy: [place], [place], 157, cm, 09/29/21 23:03:00 CDT, Height/Length [...] ([place]) from Swab collected on 16-MAR-2022 17:54:00 HEADER SETUP OPERATOR tested positive for COVID-19. Procedures Procedure Date Related Diagnosis Body Site Status Bladder washout 12/14/20 Completed Kidney transplant 05/13/20 Complet ed Tx - Liver transplantation 05/08/20 Completed delivery Complet ed cyst removal from breast Completed Hernia Completed liver transplant Complete d Vital Signs Most recent to oldest [Reference Range]: 1 Temperature Oral [35.8-37.3 Deg C] 37.0 Deg C (03/22/22 1:44 AM) Peripheral Pulse Rate [60-100 bpm] 90 bp m (03/22/22 1:44 AM) Respiratory Rate [12-24 br/min] 20 br/mi n (03/22/22 1:44 AM) Blood Pressure [90-140/60-90 mmHg] 133/8 7mmHg (03/22/22 1:44 AM) Weight Dosing 77.00 kg (03/22/22 1:52 AM) Weight Estimated 77.00 kg (03/22/22 1:44 AM) Height/Length Dosing 157.000 cm (03/22/22 1:52 AM) Height/Length Estimated 157.000 cm (03/22/22 1:44 AM) Social History Social History Type Response Smoking Status 5-9 cigarettes (betw een 1/4 to 1/2 pack)/day in last 30 days entered on: 05/12/21 Sex Hospital Discharge Instructions Patient Education 03/22/2022 01:51:44 Chronic Migraine Headache Chronic Migraine Headache A [...] these instructions at home: Medicines ??? Take fghj-rni-zhucsrl and prescription medicines only as told by [...] Headache and Migraine Patients (CHAMP): headachemigraine.org ??? [place] Migraine Foundation: [email or web address].org ??? National Headache Foundation: [...] provider. Document Revised: 04/22/2020 Document Reviewed: 04/22/2020 [employer] Patient Education ?? 2021 [email or web address]. Follow Up Care 03/22/2022 01:44:30 With:Hermes Ramirez MD Address: [address] [place] [address], [address] [place] [id number]- When:3 to 5 days Comments:If you have fever, vomiting, shortness of breath,??or??new concerning symptoms, return to the emergency department. Physician Emergency department Note * Akil Casas MD: PERFORM Event Display: ED Note Physician Authored Date: [id number] MISHA JACKSON :1980 Age:41 years Sex:Female Visit Date:03/22/2022 Primary Care Physician: Hermes Ramirez MD Basic Information Time Seen: Akil Casas MD / 03/22/2022 01:45 Chief Complaint Headache History Of Present Illness: 41-year-old woman with a history of??hepatorenal transplant and frequently recurrent migraines comes the emergency department complaining of a migraine that is typical for her??which is associated with nausea.?? Patient states that??she feels very fatigued??and went to her grandfather's today.?? She denies fever, shortness of breath,??productive cough,??chest pain, vomiting and diarrhea.?? Last week she was diagnosed with??COVID and influenza.?? She is currently taking Tamiflu. Review of Systems: Constitutional:?No??fevers,?No??chills Eye:?No??recent visual problems ENT:?No??nasal congestion,?No??sore throat Respiratory:?No??shortness of breath,?No??cough Cardiovascular:?No??Chest pain,?No??palpitations,?No??syncope Gastrointestinal:?Positive fornausea,?No??vomiting,?No??diarrhea Musculoskeletal:??No??back pain,??No??neck pain,??No??joint pain,??No??muscle pain,??No??decreased range of motion Integumentary:?No??rash,?No??pruritus,?No??abrasions Neurologic: No numbness, no weakness Physical Exam Vitals & Measurements T:??37.0?C ??(Oral)?? HR:??90??(Peripheral)?? RR:??20?? BP:??133/87?? SpO2:??98%?? HT:??157.000??cm?? WT:??77.00??kg??(Estimated)?? Pain Score:??8?? O2 Therapy:??Room air?? General: Alert and oriented, well nourished,?Moderateacute distress Eye: PERRL, EOMI,?Normal??conjunctiva HENT: Normocephalic, moist oral mucosa,?No??scleral icterus Neck: Supple, non-tender Lungs: Clear to auscultation,?Non-labored?? respiration Heart:?Normal?? rate,?Regular??rhythm,?No??murmur,??No??edema Musculoskeletal:?Normal?? range of motion and strength,?No??tenderness,?No??swelling Skin: Skin is warm, dry and pink,?No??rashes,?No??lesions Neurologic: Awake, alert and oriented X4, CN II-XII intact Psychiatric: Cooperative, appropriate mood and affect Procedure No Qualifying Data Assessment/Plan 1.??Migraine headache??G43.909 Orders: Discharge Patient, 03/22/22 2:20:00 HEADER SETUP OPERATOR, Home Independently, Constant Indicator Patient Discharge Condition Good Discharge Disposition Home Patient Education Chronic Migraine Headache Follow Up With When Contact Information Hermes Ramirez MD Within 3 to 5 days [facility], [address] [place] [address]- Additional Instructions: If you have fever, vomiting, shortness of breath,??or??new concerning symptoms, return to the emergency department. Medication Reconciliation Unchanged albuterol (albuterol 90 mcg/inh [...] ?? morphine (morphine 4 mg/mL preservative-free injectable solution)1 Milliliters Intramuscular (in a muscle) once. ?? oseltamivir (oseltamivir 30 mg oral capsule)1 Capsules Oral (given by mouth) 2 times a day. Refills: 0. ?? Other Prescription (Sod Bicarb Tab 10gr 1000 Rsg)TAKE TWO TABLETS TWICE DAILY, after breakfast and dinner. ?? predniSONEtapering dose. ?? promethazine (Phenergan 25 mg oral tablet)1 [...] removal from breast???Hernia???liver transplant Medication Administration Given diphenhydrAMINE, 50 mg, IM morphine, 4 mg, IM Phenergan, 25 mg, IM Allergies NSAIDs Toradol??(Kidney failure as a complication of care) aspirin??(Medication interaction) azithromycin??(Unknown) codeine??(Unknown, Itching) gentamicin erythromycin??(Medication interaction) Social History Alcohol Never Electronic Cigarette/Vaping Electronic Cigarette Use: Never. Substance Use Never Tobacco 5-9 cigarettes (between 1/4 to 1/2 pack)/day in last 30 days Tobacco Use:. Family History Cancer: Mother. Electronically Signed on 03/22/22 02:23 AM Akil Casas MD Patient Care team information Personnel Name: Hermes Ramirez MD Address: Address: [address] [place] [address], [address] [place] [address]
--- OUTSIDE RECORDS SUMMARY | 2024-03-20 11:37 | XMS_ITS | Continuity of Care Document ---
Author Organization Formerly [facility] Address [address] [place] [address] Care Team Providers Care Senior Compliance Analyst Name Role Phone Hermes Ramirez Chris Primary Care Physician [phone] Encounter ONOFRE MCGRAW [id number] Date(s): 05/12/22 - 05/12/22 [place] [address] [place], [place] [address] Encounter Diagnosis Migraine headache(Discharge Diagnosis) - 05/12/22 Discharge Disposition: Home or Self Care Attending Physician: Akil Casas MD Admitting Physician: Akil Casas MD Allergies, Adverse Reactions, Alerts Substance Reaction Severity Status codeine Unknown Itching Severe Active gentamicin Moderate Active erythromycin Medication interaction Activ e azithromycin Unknown Severe Active aspirin Medication interaction Severe Activ e Toradol Kidney failure as a complication of care Severe Active NSAIDs Severe Active Assessment and Plan Extracted from: Title:Clinical Document Author:Flaquita Angela RN Date:05/12/22 Diagnosis: 1. Migraine heada artis Comment: md offered pt benadryl and phenergan but she stated it would not help given discharge instructions and advised to followup with primary as directed Future Appointments Future Scheduled Tests Laboratory* Giardia lamblia Ag, EIA LC 04/07/22 * Cryptosporidium EIA LC 04/07/22 * Stool Culture LC 04/07/22 * Clostridium difficile Amp 04/07/22 * Ova + Parasite Exam LC 04/07/22 Radiology* XR Hand Complete 3+ Views Right 05/11/22 Functional Status 05/12/22 Other exposure to Infectious Disease Non e [...] wheezing, # 6.7 g, 0 Refill(s), Pharmacy: [place], [place], [address], cm, 09/13/21 23:53:00 CDT, Height/Length [...] needed, # 12 cap, 0 Refill(s), Pharmacy: [place], [place], [address], cm, 11/04/21 20:02:00 CDT, Height/Length [...] tab, 3 Refill(s), Pharmacy: [facility], 157.48, cm, 02/07/22 18:45:00CST, Height/Length Dosing, 72.57, kg, 02/07/22 18:45:00 INFECTION CONTROL PRACTITIONER, Weight Dosing Start Date: 02/13/22 Status: Ordered morphine 2 mg/mL preservative-free injectable solution 2 mg = 1 mL, IM, Once, 0 Refill(s) Start Date: 05/05/22 Status: Ordered oseltamivir 30 mg oral capsule 30 mg = 1 cap, Oral, BID, # 10 cap, 0 Refill(s), Pharmacy: [place], [place], 157.[address], cm, 03/16/22 18:01:00 INFECTION CONTROL PRACTITIONER, Height/Length Dosing, 77.11, kg, 03/16/22 18:01:00 INFECTION CONTROL PRACTITIONER, Weight Dosing Start Date: 03/16/22 Status: Ordered [...] nausea/vomiting, # 20 tab, 0 Refill(s), Pharmacy: [place], [place], [address], cm, 09/29/21 23:03:00 CDT, Height/Length [...] Oral [35.8-37.3 Deg C] 36.8 Deg C (05/12/22 5:36 PM) Peripheral Pulse Rate [60-100 bpm] 100 b pm (05/12/22 5:36 PM) Respiratory Rate [12-24 br/min] 16 br/mi n (05/12/22 5:36 PM) Blood Pressure [90-140/60-90 mmHg] 132/8 0mmHg (05/12/22 5:36 PM) Weight Dosing 74.84 kg (05/12/22 5:54 PM) Weight Estimated 74.84 kg (05/12/22 5:36 PM) Height/Length Dosing 157.480 cm (05/12/22 5:54 PM) Height/Length Estimated 157.480 cm (05/12/22 5:36 PM) Social History Social History Type Response Tobacco Current everyday tob acco user Tobacco Use:. Sex Hospital Discharge Instructions Patient Education 05/12/2022 18:56:57 Chronic Migraine Headache Chronic Migraine Headache A [...] these instructions at home: Medicines ??? Take wnev-iid-hnxyqdj and prescription medicines only as told by [...] Headache and Migraine Patients (CHAMP): headachemigraine.org ??? [place] Migraine [employer]: americanmigrainefoundation.org ??? National Headache Foundation: [...] provider. Document Revised: 04/22/2020 Document Reviewed: 04/22/2020 [employer] Patient Education ?? 2021 [employer] Follow Up Care 05/12/2022 17:36:47 With:Hermes Ramirez MD Address: [address] [place] [address]- When:1 to 2 days Comments:If you have fever,??persistent vomiting,??weakness in your arms or legs, or new concerning symptoms, return to the emergency department. Discharge summary * Flaquita Angela RN: PERFORM Event Display: Discharge Note Authored Date: Diagnosis: 1. Migraine headache Comment: md offered pt benadryl and phenergan but she stated it would not help given discharge instructions and advised to followup with primary as directed Electronically Signed on 05/12/22 07:25 PM Flaquita Angela RN Patient Care team information Care Team Personnel Name: Jessee Jones RETAIL LOAN OFFICER Position: Physician Member Role: Nurse Practitioner Address: Address: [address] [place] [address], [address] Name: Latoya Marquez RETAIL LOAN OFFICER Position: Physician Member Role: Nurse Practitioner Address: Address: [address] [place] [address] Name: Leonila Gonzalez RETAIL LOAN OFFICER Position: Physician Member Role: Nurse Practitioner Address: Address: [address] [place] [address] Name: Beth Brandt RETAIL LOAN OFFICER Position: Physician Member Role: Nurse Practitioner Address: Address: [address] [place] [address] Name: Hermes Ramirez MD Position: Physician Member Role: Informed Provider Address: Address: [address] [place] [address], [address] [place] [address]- Name: Pillo Moe RETAIL LOAN OFFICER Position: Physician Member Role: Nurse Practitioner Address: Address: [address] [place] [address], [address] [facility] Name: Sejal Porter RN Position: Nurse Member Role: ED Nurse Name: Flaquita Angela RN Position: Nurse Member Role: ED Nurse Name: Akil Casas MD Position: Physician Member Role: ED Physician Care Team Related Persons Name: STACIA JONES Address: Home [address] [place] [phone] Name: ROBYN JAMA Address: Home
--- OUTSIDE RECORDS SUMMARY | 2024-03-20 11:37 | XMS_ITS | Continuity of Care Document ---
Author Organization [facility] Address [address] [place] [address] Care Team Providers Care Tar Heat Exchanger Cleaner Name Role Phone Hermes Ramirez Primary Care Physician Encounter ONOFRE MCGRAW [id number] Date(s): 04/12/21 - 04/12/[address] [id number] Encounter Diagnosis Migraine headache(Discharge Diagnosis) - 04/12/21 Discharge Disposition: Home or Self Care Attending Physician: Zack Byrnes MD Admitting Physician: Zack Byrnes MD Allergies, Adverse Reactions, Alerts Substance Reaction Severity Status gentamicin Moderate Active erythromycin Medication interaction Activ e aspirin Medication interaction Activ e Toradol Kidney failure as a complication of care Active NSAIDs Severe Active Assessment and Plan Future Appointments Functional Status 04/12/21 Other exposure to Infectious Disease [facility] exposure to COVID-19 within the last 14 days Immunizations Given and Recorded Vaccine Date Status [...] BID, # 180 tab, 3 Refill(s), Pharmacy: [place], [place], [address], cm, 10/22/20 21:26:00 CDT, Height/Length [...] [35.8-37.3 Deg C] 37 De g C (04/12/21 12:23 PM) Peripheral Pulse Rate [60-100 bpm] 76 bp m (04/12/21 12:23 PM) Respiratory Rate [12-24 br/min] 18 br/mi n (04/12/21 1:33 PM) 18 br/min (04/12/21 12:23 PM) Blood Pressure [90-140/60-90 mmHg] 141/9 1mmHg *HI* (04/12/21 1:33 PM) 176/102mmHg *HI* (04/12/21 12:23 PM) Weight 77.11 kg (04/12/21 12:23 PM) Weight Dosing 77.11 kg (04/12/21 12:40 PM) Height 157.480 cm (04/12/21 12:23 PM) Height/Length Dosing 157.480 cm (04/12/21 12:40 PM) Body Mass Index Estimated 31 (04/12/21 12:23 PM) Social History Social History Type Response Smoking Status 5-9 cigarettes (betw een 1/4 to 1/2 pack)/day in last 30 days entered on: 04/12/21 Sex Hospital Discharge Instructions Patient Education 04/12/2021 13:08:47 Migraine Headache Migraine Headache A migraine headache [...] these instructions at home: Medicines ??? Take ijjm-lye-ywnmldk and prescription medicines only as told by your health care provider. ??? Ask your health care provider if the medicine prescribed to you: ??? Requires you to avoid driving or using heavy machinery. ??? Can cause constipation. You may need to take these actions to prevent or treat constipation: ??? Drink enough fluid to keep your urine pale yellow. ??? Take qemq-vlx-ruckvim or prescription medicines. ??? Eat foods that [...] provider. Document Revised: 06/28/2019 Document Reviewed: 04/18/2019 [employer] Patient Education ?? 2020 [employer]. Follow Up Care 04/12/2021 12:23:35 With:Hermes Ramirez MD Address: [address] [place] [address], [address] [place] [id number]- When:1 to 2 days Comments:Keep your previously scheduled??appointment tomorrow with Dr. Ramirez and also with your neurologist.
--- OUTSIDE RECORDS SUMMARY | 2024-03-20 11:37 | XMS_ITS | Continuity of Care Document ---
Author Organization [facility] Address [address] [place] [address] Care Team Providers Care Silverware Etcher Name Role Phone Hermes Ramirez Primary Care Physician [phone] Encounter [facility] [id number] Date(s): 01/31/23 - 01/31/[address] [address] [place] Encounter Diagnosis Abscess of left thigh(Discharge Diagnosis) - 01/31/23 Migraine headache(Discharge Diagnosis) - 01/31/23 Discharge Disposition: Home or Self Care Attending [...] Assessment and Plan Diagnostic Tests Pending * Wound Culture 01/31/23 Future Scheduled Tests Laboratory* Giardia lamblia Ag, EIA LC 04/07/22 * Cryptosporidium EIA LC 04/07/22 * Stool Culture 04/07/22 * Urinalysis with Microscopic 10/31/22 * Urine Culture 10/31/22 * Clostridium difficile Amp 04/07/22 * Ova + Parasite Exam LC 04/07/22 Radiology* XR Shoulder Complete 2+ Views Right 07/04/22 Functional Status 01/31/23 Recent Travel History No recent travel Other [...] Daily, # 30 tab, 11 Refill(s), Pharmacy: [place], [place], 157.48, cm, 01/04/23 15:03:00 CDT, Height/Length Dosing, 81.65, kg, 01/04/23 15:03:00 CDT, Weight Dosing Start Date: 01/11/23 Status: Ordered aspirin 81 mg oral delayed release tablet 81 mg = 1 tab, Oral, Daily, # 30 tab, 0 Refill(s) Start Date: 04/05/21 Status: Ordered clindamycin 300 mg oral capsule 300 mg = 1 cap, Oral, every 6 hr, X 10 days, # 40 cap, 0 Refill(s), 02/10/23 3:40:00 PM [employer], Pharmacy: [place], [place], 157.48, cm, 01/31/23 14:25:00 [employer], Height, 81.65, kg, 01/31/23 14:25:00 [employer], Weight Dosing Start Date: 01/31/23 Stop Date: 02/10/23 Status: Ordered gabapentin 300 mg oral capsule [...] BID, # 60 cap, 11 Refill(s), Pharmacy: [place], [place], 157.48, cm, 01/04/23 15:03:00 CDT, Height/Length [...] Effective Dates Status H ealth Status Informant Abscess of left thigh Confirmed Active Acne Confirmed Active Anxiety Confirmed Active Right-sided [...] Oral [35.8-37.3 Deg C] 37.1 Deg C (01/31/23 2:05 PM) Peripheral Pulse Rate [60-100 bpm] 81 bpm (01/31/23 4:29 PM) 85 bpm (01/31/23 3:30 PM) 78 bpm (01/31/23 2:22 PM) Respiratory Rate [12-24 br/min] 18 br/min (01/31/23 4:29 PM) 18 br/min (01/31/23 3:30 PM) 18 br/min (01/31/23 2:22 PM) Blood Pressure [90-140/60-90 mmHg] 155/94mmHg 1 *HI* (01/31/23 4:29 PM) 152/91mmHg *HI* (01/31/23 3:30 PM) 144/89mmHg *HI* (01/31/23 2:22 PM) Mean Arterial Pressure, Cuff [70-110 mmHg] 125 mmHg *>HHI* (01/31/23 2:05 PM) Weight 81.65 kg (01/31/23 2:05 PM) Weight Dosing 81.65 kg (01/31/23 2:25 PM) Height 157.480 cm (01/31/23 2:25 PM) 157.480 cm (01/31/23 2:05 PM) Body Mass Index 33.000 kg/m2 (01/31/23 2:05 PM) 1Result Comment: states my blood pressure at the doctors office is usually normal its just when i come to er and am in pain that blood pressure is high. Social History Social History Type Response Tobacco Current everyday tob acco user Tobacco Use:. Sex Hospital Discharge Instructions Patient Education 01/31/2023 15:36:40 Incision and Drainage, Care After Incision and Drainage, Care After This sheet gives you information about how to care for yourself after your procedure. Your health care provider may also give you more specific instructions. If you have problems or questions, contact your health care provider. What can I expect after the procedure? After the procedure, it is common to have: ??? Pain or discomfort around the incision site. ??? Blood, fluid, or pus (drainage) from the incision. ??? Redness and firm skin around the incision site. Follow these instructions at home: Medicines ??? Take mdjk-hjq-nrzjpxn and prescription medicines only as told by your health care provider. ??? If you were prescribed an antibiotic medicine, use or take it as told by your health care provider. Do not stop using the antibiotic even if you start to feel better. Wound care Follow instructions from your health care provider about how to take care of your wound. Make sure you: ??? Wash your hands with soap and water before and after you change your bandage (dressing). If soap and water are not available, use hand lining feller blindstitch. ??? Change your dressing and packing as told by your health care provider. ??? If your dressing is dry or stuck when you try to remove it, moisten or wet the dressing with saline or water so that it can be removed without harming your skin or tissues. ??? If your wound is packed, leave it in place until your health care provider tells you to remove it. To remove the packing, moisten or wet the packing with saline or water so that it can be removedwithout harming your skin or tissues. ??? Leave stitches (sutures), skin glue, or adhesive strips in place. These skin closures may need to stay in place for 2 weeks or longer. If adhesive strip edges start to loosen and curl up, you maytrim the loose edges. Do not remove adhesive strips completely unless your health care provider tells you to do that. Check your wound every day for signs of infection. Check for: ??? More redness, swelling, or pain. ??? More fluid or blood. ??? Warmth. ??? Pus or a bad smell. If you were sent home with a drain tube in place, follow instructions from your health care provider about: ??? How to empty it. ??? How to care for it at home. General instructions ??? Rest the affected area. ??? Do not take baths, swim, or use a hot tub until your health care provider approves. Ask your health care provider if you may take showers. You may only be allowed to take sponge baths. ??? Return to your normal activities as told by your health care provider. Ask your health care provider what activities are safe for you. Your health care provider may put you on activity or liftingrestrictions. ??? The incision will continue to drain. It is normal to have some clear or slightly bloody drainage. The amount of drainage should lessen each day. ??? Do not apply any creams, ointments, or liquids unless you have been told to by your health careprovider. ??? Keep all follow-up visits as told by your health care provider. This is important. Contact a health care provider if: ??? Your cyst or abscess returns. ??? You have more redness, swelling, or pain around your incision. ??? You have more fluid or blood coming from your incision. ??? Your incision feels warm to the touch. ??? You have pus or a bad smell coming from your incision. ??? You have red streaks above or below the incision site. Get help right away if: ??? You have severe pain or bleeding. ??? You cannot eat or drink without vomiting. ??? You have a fever or chills. ??? You have redness that spreads quickly. ??? You have decreased urine output. ??? You become short of breath. ??? You have chest pain. ??? You cough up blood. ??? The affected area becomes numb or starts to tingle. These symptoms may represent a serious problem that is an emergency. Do not wait to see if the symptoms will go away. Get medical help right away. Call your local emergency services (911 in the [place] Do not drive yourself to the hospital. Summary ??? After this procedure, it is common to have fluid, blood, or pus coming from the surgery site. ??? Follow all home care instructions. You will be told how to take care of your incision, how to check for infection, and how to take medicines. ??? If you were prescribed an antibiotic medicine, take it as told by your health care provider. Donot stop taking the antibiotic even if you start to feel better. ??? Contact a health care provider if you have increased redness, swelling, or pain around your incision. Get help right away if you have chest pain, you vomit, you cough up blood, or you have shortness of breath. ??? Keep all follow-up visits as told by your health care provider. This is important. This information is not intended to replace advice given to you by your health care provider. Make sure you discuss any questions you have with your health care provider. Document Revised: 12/16/2021 Document Reviewed: 12/16/2021 [employer] Patient Education ?? 2022 [employer]. 01/31/2023 15:36:38 Chronic Migraine Headache, Fxle-fx-Mbsi Chronic Migraine Headache A migraine headache is [...] these instructions at home: Medicines ??? Take umeh-rmo-qpqieno and prescription medicines only as told by [...] Headache and Migraine Patients (CHAMP): headachemigraine.org ??? [employer] Migraine Foundation: americanmigrainefoundation.org ??? National Headache Foundation: [...] Document Reviewed: 04/22/2020 Elsevier Patient Education ?? 2022 [employer]. 01/31/2023 15:36:36 Skin Abscess, Mazv-sn-Ppfx Skin Abscess A skin abscess is an infected area of your skin that contains pus and other material. An abscess can happen in any part of your body. Some abscesses break open (rupture) on their own. Most continue to get worse unless they are treated. The infection can spread deeper into the body and into your blood, which can make you feel sick. A skin abscess is caused by germs that enter the skin through a cut or scrape. It can also be caused by blocked oil and sweat glands or infected hair follicles. This condition is usually treated by: ??? Draining the pus. ??? Taking antibiotic medicines. ??? Placing a warm, wet washcloth over the abscess. Follow these instructions at home: Medicines ??? Take jcip-sdj-geiurgg and prescription medicines only as told by your doctor. ??? If you were prescribed an antibiotic medicine, take it as told by your doctor. Do not stop taking the antibiotic even if you start to feel better. Abscess care ??? If you have an abscess that has not drained, place a warm, clean, wet washcloth over the abscess several times a day. Do this as told by your doctor. ??? Follow instructions from your doctor about how to take care of your abscess. Make sure you: ??? Cover the abscess with a bandage (dressing). ??? Change your bandage or gauze as told by your doctor. ??? Wash your hands with soap and water before you change the bandage or gauze. If you cannot use soap and water, use hand lining feller blindstitch. ??? Check your abscess every day for signs that the infection is getting worse. Check for: ??? More redness, swelling, or pain. ??? More fluid or blood. ??? Warmth. ??? More pus or a bad smell. General instructions ??? To avoid spreading the infection: ??? Do not share personal care items, towels, or hot tubs with others. ??? Avoid making cgdc-ll-pdwr contact with other people. ??? Keep all follow-up visits as told by your doctor. This is important. Contact a doctor if: ??? You have more redness, swelling, or pain around your abscess. ??? You have more fluid or blood coming from your abscess. ??? Your abscess feels warm when you touch it. ??? You have more pus or a bad smell coming from your abscess. ??? Your muscles ache. ??? You feel sick. Get help right away if: ??? You have very bad (severe) pain. ??? You see red streaks on your skin spreading away from the abscess. ??? You see redness that spreads quickly. ??? You have a fever or chills. Summary ??? A skin abscess is an infected area of your skin that contains pus and other material. ??? The abscess is caused by germs that enter the skin through a cut or scrape. It can also be caused by blocked oil and sweat glands or infected hair follicles. ??? Follow your doctor's instructions on caring for your abscess, taking medicines, preventing infections, and keeping follow-up visits. This information is not intended to replace advice given to you by your health care provider. Make sure you discuss any questions you have with your health care provider. Document Revised: 12/13/2021 Document Reviewed: 12/13/2021 [employer] Patient Education ?? 2022 [employer]. Follow Up Care 01/31/2023 14:05:11 With:Hermes Ramirez MD Address: [address] [place] [address], [address] [place] [address]- When:2 to 4 days Comments:Remove packing in 2 days. ??Clindamycin 300 mg 4 times daily for 10 days.?? Keep area clean.?? Return to ED if symptoms worsen.?? Continue other home medications. Physician Emergency department Note * Jesus Khan MD: PERFORM Event Display: ED Note Physician Authored Date: [id number] MISHA JACKSON :1980 Age:42 years Sex:Female Visit Date:01/31/2023 Primary Care Physician: Hermes Ramirez MD Basic Information Time Seen: Jesus Khan MD / 01/31/2023 15:03 Chief Complaint complaining of ??migraine onset this am, achy and joints hurt x 5 days, also has a boil to left inner thigh x 1 week ?? states started out small yet last few days has gotten bigger. ??prehospital tylenol at 0600 History Of Present Illness: Patient??comes in complaining??of abscess??left??upper??medial thigh. ??States it started??about a week ago??and gradually has gotten??bigger??and??more tender.?? Also??states??started with a migraine headache this morning. ??Has chronic migraine headaches. Review of Systems: Constitutional:?No??fevers,?No??chills,?No??sweats Eye:?No??recent visual problems ENT:?No??ear pain,?No??nasal congestion,?No??sore throat Respiratory:?No??shortness of breath,?No??cough Cardiovascular:?No??Chest pain,?No??palpitations,?No??syncope Gastrointestinal:?Nonausea,?No??vomiting,?No??diarrhea Genitourinary:?No??hematuria Clemente/Lymph:?No??bruising tendency,?No??swollen lymph glands Endocrine:?No??excessive thirst,??No??excessive hunger Musculoskeletal:??No??back pain,??No??neck pain,??No??joint pain,??No??muscle pain,??No??decreased range of motion Integumentary:?No??rash,?No??pruritus,?No??abrasions;??abscess left upper medial thigh. Neurologic: Alert & oriented X 4 Psychiatric:?No??anxiety,?No??depression Physical Exam Vitals & Measurements T:??37.1?C ??(Oral)?? HR:??87??(Peripheral)?? RR:??18?? BP:??174/101?? SpO2:??100%?? HT:??157.480??cm?? WT:??81.65??kg?? BMI:??33.000?? Pain Score:??8?? O2 Therapy:??Room air?? General: Alert and oriented, well nourished,?No??acute distress Eye: PERRL, EOMI,?Normal?conjunctiva HENT: Normocephalic, clear tympanic membranes,?Normal? hearing, moist oral mucosa,?No??scleral icterus,?No??sinus tenderness Neck: Supple, non-tender,?No??carotid bruits,?No??JVD,?No??lymphadenopathy Lungs:??Clear to auscultation?? Respiration:??Non-Labored Heart:?Normal? rate,?Regular??rhythm,?No??murmur,?No??gallop,?No??edema Breast:?No??lumps,?No??bumps,?No??scars,?Normal? nipples Abdomen: Soft, non-tender, non-distended,?Normal? bowel sounds,?No??masses Musculoskeletal:?Normal? range of motion and strength,?Positive for??tenderness,??abscess left upper medial thigh;??tender on palpation. ??Redness.. ??Abscess left upper medial thigh. ??No??swelling Skin: Skin is warm, dry and pink,?No??rashes,?No??lesions;??abscess left upper medial thigh.?? Tender??and redness. ??Present. Neurologic: Awake, alert and oriented X4, CN II-XII intact Psychiatric: Cooperative, appropriate mood and affect Procedure Abscess left upper medial thigh. ??Area??was cleaned and prepped with Betadine solution.?? Local anesthesia with lidocaine??1%??without epinephrine; 5 mL.?? I&D of abscess??with 11 blade.?? Moderate amount of purulent??drainage obtained.?? Cultures were obtained.?? Packing of the wound was done?? With iodoform d??gauze. ??Ressing. No Qualifying Data Assessment/Plan 1.??Abscess of left thigh??L02.416 2.??Migraine headache??G43.909 Orders: clindamycin, 300 mg = 2 cap, Oral, Cap, Once, Antibiotic Indication Skin/soft tissue, abscess/purulent, First Dose: 01/31/23 16:00:00 [employer], Stop Date: 01/31/23 16:00:00 [employer], Physician Stop, Routine Benadryl, 50 mg = 1 mL, IM, Injection, Once, First Dose: 01/31/23 16:00:00 [employer], Stop Date: 02/01/2316:00:00 [employer], Physician Stop, Routine Phenergan, 25 mg = 1 mL, IM, Injection, Once, First Dose: 01/31/23 16:00:00 [employer], Stop Date: 01/31/23 16:00:00 [employer], Physician Stop, Routine Wound Culture, Abscess, Thigh, Stat collect, ST - Stat, 01/31/23 15:12:00 [employer], Once, Nurse collect,Print Label I&D??abscess??left upper??medial thigh area.?? Packing.?? Clindamycin 300 mg p.o.??every 6 hours for 10 days.?? Continue other home medications. ??Follow-up with PCP.?? Return to ED if symptoms worsen. ??Abscess left??upper medial??thigh.?? Migraine headache. Patient Discharge Condition Good Discharge Disposition Discharge home??follow-up with PCP Patient Education Incision and Drainage, Care After Chronic Migraine Headache, Pgym-jw-Wtbq Skin Abscess, Lhux-gc-Hlix Follow Up With When Contact Information Hermes Ramirez MD Within 2 to 4 days [address] [facility], [address] [place] [address]- Additional Instructions: Remove packing in 2 days. ??Clindamycin 300 mg 4 times daily for 10 days.?? Keep area clean.?? Return to ED if symptoms worsen.?? Continue other home medications. Medication Reconciliation Unchanged [...] FOR 4 WEEKS +SYRINGE KIT 10. ?? topiramate (topiramate 25 mg oral tablet)TAKE [...] every day. Problem List/Past Medical History Ongoing Abscess of left thigh Acne Anxiety Cervicalgia Chronic neck pain Chronic [...] transplantation (05/08/2020)???Mammogram (2020)??? delivery???cyst removal from [facility]???liver transplant Allergies NSAIDs Toradol??(Kidney failure as a complication of care) aspirin??(Medication interaction) azithromycin??(Unknown) codeine??(Unknown, Itching) gentamicin erythromycin??(Medication interaction) Social History Alcohol Never Electronic Cigarette/Vaping Electronic Cigarette Use: Never. Substance Use Never Tobacco Current everyday tobacco user Tobacco Use:.- Comments: Pt states that she smokes half a pack a day. Family History Cancer: Mother. Attending Attestation Follow-up with PCP Electronically Signed on 01/31/23 03:37 PM Jesus Khan MD Patient Care team information Care Team Personnel Name: Jessee Jones NP Position: Physician Member Role: Nurse Practitioner Address: Address: [address] [place] [address], [address] [place] [address]- Name: Latoya Marquez PASTRY SUPERVISOR Position: Physician Member Role: Nurse Practitioner Address: Address: [address] [place] [address]- Name: Leonila Gonzalez PASTRY SUPERVISOR Position: Physician Member Role: Nurse Practitioner Address: Address: [address] [place] [address]- Name: Beth Brandt PASTRY SUPERVISOR Position: Physician Member Role: Nurse Practitioner Address: Address: [address] [place] [address] [place] [address] Name: Hermes Ramirez MD Position: Physician Member Role: Primary Care Physician Address: Address: [address] [facility], [address] [place] [address]- Name: Anamika Gore MD Position: Physician - Women's Health Member Role: Informed Provider Name: Pillo Moe NP Position: Physician Member Role: Nurse Practitioner Address: Address: [address] [place] [address], [address] [place] Name: Jesus Khan MD Position: Physician Member Role: Admitting Physician Address: Address: [address] [place] [address] [place] [address]- Name: Li Guan RN Position: Nurse Member Role: Registered Nurse Care Team Related Persons Name: STACIA JONES Address: Home [address] [place], [place] [id number] Name: ROBYN JAMA
--- OUTSIDE RECORDS SUMMARY | 2024-03-20 11:37 | XMS_ITS | Continuity of Care Document ---
Author Organization [facility] Address [address] [place] [address] Care Team Providers Care Ditch Cleaner Name Role Phone Ashley Hermes Chris Primary Care Physician Encounter ONOFRE MCGRAW [id number] Date(s): 01/01/22 - 01/01/[address] [address] Encounter Diagnosis Headache(Discharge Diagnosis) - 01/01/22 UTI (urinary tract infection)(Discharge Diagnosis) - 01/01/22 Discharge Disposition: Home or Self Care Attending Physician: Akil Casas MD Admitting Physician: Akil Cassa MD Allergies, Adverse Reactions, Alerts Substance Reaction Severity Status codeine Unknown Itching Severe Active gentamicin Moderate Active erythromycin Medication interaction Activ e azithromycin Unknown Severe Active aspirin Medication interaction Severe Activ e Toradol Kidney failure as a complication of care Severe Active NSAIDs Severe Active Assessment and Plan Future Appointments Diagnostic Tests Pending * Urine Culture 01/01/22 * Blood Culture 01/01/22 * Urine Culture 01/01/22 Immunizations Given and Recorded Vaccine Date Status [...] # 6.7 g, 0 Refill(s), Pharmacy: [place], [place], [address], cm, 09/13/21 23:53:00 CDT, Height/Length [...] # 12 cap, 0 Refill(s), Pharmacy: [place], [place], [address], cm, 11/04/21 20:02:00 CDT, Height/Length Dosing, 73, kg, 11/04/21 20:02:00 CDT, Weight Dosing Start Date: 11/04/21 Status: Ordered ciprofloxacin 500 mg oral tablet 500 mg = 1 tab, Oral, every 12 hr, # 14 tab, 0 Refill(s), Pharmacy: [id number], 157, cm, 01/01/22 18:29:00 CDT, Height/Length Dosing, [...] BID, # 180 tab, 3 Refill(s), Pharmacy: [place], [place], [address], cm, 10/22/20 21:26:00 CDT, Height/Length Dosing, 74, kg, 10/22/20 21:26:00 CDT, Weight Dosing Start Date: 12/18/20 Status: Ordered ondansetron 4 mg oral tablet, disintegrating 4 mg = 1 tab, Oral, every 6 hr, PRN nausea/vomiting, # 12 tab, 0 Refill(s), Pharmacy: [place], [place], [address], cm, 11/04/21 20:02:00 CDT, Height/Length [...] # 20 tab, 0 Refill(s), Pharmacy: [place], [place], [address], cm, 09/29/21 23:03:00 CDT, Height/Length [...] Confirmed Active Upper respiratory infection Confirmed Active Procedures Procedure Date Related Diagnosis Body Site Status Bladder washout 12/14/20 Completed Kidney transplant 05/13/20 Complet ed Tx - Liver transplantation 05/08/20 Completed delivery Complet ed cyst removal from breast Completed Hernia Completed liver transplant Complete d Results Laboratory List Name Date Amylase Level 01/01/22 Automated Diff 01/01/22 C-Reactive Protein 01/01/22 CBC w/ Diff 01/01/22 Comprehensive Metabolic Panel 01/01/22 Lactic Acid 01/01/22 Lipase Level 01/01/22 Test Serum Qual 01/01/22 Sedimentation Rate (ESR) 01/01/22 Urinalysis with Culture if Indicated .Urine Volume 01/01/22 Urinalysis Microscopic 01/01/22 Most recent to oldest [Reference Range]: 1 WBC [4.0-11.5 K/mcL] 12.1 K/mcL *HI* (01/01/22 7:00 PM) RBC [4.20-5.40 x10^6/mcL] 4.16 x10^6/mcL *LOW* (01/01/22 7:00 PM) Neutro Auto 83.1 % *NA* (01/01/22 7:00 PM) Lymph Auto 9.2 % *NA* (01/01/22 7:00 PM) Bleckley Auto 7.2 % *NA* (01/01/22 7:00 PM) Basophil Auto 0.1 % *NA* (01/01/22 7:00 PM) BUN [7-18 mg/dL] 19 mg/dL *HI* (01/01/22 7:00 PM) UA Color Yellow (01/01/22 6:48 PM) UA WBC [0-5] 16-20 *ABN* (01/01/22 6:48 PM) Glucose Level [70-110 mg/dL] 100 mg/dL (01/01/22 7:00 PM) Potassium Level [3.5-5.1 mmol/L] 3.6 mmo l/L (01/01/22 7:00 PM) Baso Absolute [0.0-0.1 x10^3/mcL] 0.0 x1 0^3/mcL (01/01/22 7:00 PM) MCV [78.0-100.0 fL] 94.7 fL (01/01/22 7:00 PM) UA Urobilinogen [Normal mg/dL] Normal mg /dL (01/01/22 6:48 PM) UA Bili [Negative mg/dL] Negative mg/dL (01/01/22 6:48 PM) CRP [0.0-3.0 mg/L] 62.0 mg/L *HI* (01/01/22 7:00 PM) UA Ketones [Negative mg/dL] Negative mg/ dL (01/01/22 6:48 PM) AST [15-37 unit/L] 71 unit/L *HI* (01/01/22 7:00 PM) Amylase Level [25-115 unit/L] 30 unit/L (01/01/22 7:00 PM) ALT [12-78 unit/L] 88 unit/L *HI* (01/01/22 7:00 PM) MCHC [29.0-37.5 g/dL] 35.3 g/dL (01/01/22 7:00 PM) Sodium Level [136-145 mmol/L] 139 mmol/L (01/01/22 7:00 PM) UA RBC [0-3] 6-10 *ABN* (01/01/22 6:48 PM) UA Leuk Est [Negative Guille/mcL] 500 Guille/m cL *ABN* (01/01/22 6:48 PM) Lymph Absolute [0.8-5.8 x10^3/mcL] 1.1 x 10^3/mcL (01/01/22 7:00 PM) UA Nitrite [Negative] Positive *ABN* (01/01/22 6:48 PM) UA Glucose [Normal mg/dL] Normal mg/dL (01/01/22 6:48 PM) Hct [36.0-48.0 %] 39.4 % (01/01/22 7:00 PM) UA Bacteria [None Seen] Moderate *ABN* (01/01/22 6:48 PM) Lipase Level [73-393 unit/L] 36 unit/L *LOW* (01/01/22 7:00 PM) Calcium Level [8.5-10.1 mg/dL] 8.5 mg/dL (01/01/22 7:00 PM) Bleckley Absolute [0.1-1.5 x10^3/mcL] 0.9 x1 0^3/mcL (01/01/22 7:00 PM) Albumin Level [3.4-5.0 g/dL] 3.5 g/dL (01/01/22 7:00 PM) Protein Total [6.4-8.2 g/dL] 7.0 g/dL (01/01/22 7:00 PM) UA Protein [Negative mg/dL] Trace mg/dL *ABN* (01/01/22 6:48 PM) MCH [27.0-34.0 pg] 33.4 pg (01/01/22 7:00 PM) Neutro Absolute [1.5-8.1 x10^3/mcL] 10.1 x10^3/mcL *HI* (01/01/22 7:00 PM) Bilirubin Total [0.0-1.0 mg/dL] 0.9 mg/d L (01/01/22 7:00 PM) Hgb [12.0-16.0 g/dL] 13.9 g/dL (01/01/22 7:00 PM) Alk Phos [46-130 unit/L] 223 unit/L *HI* (01/01/22 7:00 PM) UA Blood [Negative Rocael/mcL] 250 Rocael/mcL *ABN* (01/01/22 6:48 PM) MPV [6.0-10.0 fL] 11.0 fL *HI* (01/01/22 7:00 PM) UA Mucous [None Seen] None Seen (01/01/22 6:48 PM) UA Spec Grav 1.010 (01/01/22 6:48 PM) Platelets [150-450 K/mcL] 115 K/mcL *LOW* (01/01/22 7:00 PM) CO2 [21-32 mmol/L] 20 mmol/L *LOW* (01/01/22 7:00 PM) Eos Absolute [0.0-0.5 x10^3/mcL] 0.0 x10 ^3/mcL (01/01/22 7:00 PM) Lactic Acid Lvl [0.4-2.0 mmol/L] 0.5 mmo l/L (01/01/22 7:00 PM) UA Squam Epithelial [None Seen] Occasion al (01/01/22 6:48 PM) UA pH [5.0-9.0] 5.0 (01/01/22 6:48 PM) eGFR Non-AA 44 *NA* (01/01/22 7:00 PM) eGFR AA 54 *NA* (01/01/22 7:00 PM) UA Appear [Clear] Cloudy *ABN* (01/01/22 6:48 PM) Chloride Level [97-107 mmol/L] 108 mmol/ L *HI* (01/01/22 7:00 PM) RDW-CV [11.5-15.0 %] 11.9 % (01/01/22 7:00 PM) hCG Qual Serum [Negative] Negative (01/01/22 7:00 PM) Imm Gran Absolute [0.0-0.1 x10^3/mcL] 0. 0 x10^3/mcL (01/01/22 7:00 PM) Imm Gran Auto 0.2 % *NA* (01/01/22 7:00 PM) NRBC Auto 0.0 % *NA* (01/01/22 7:00 PM) NRBC Absolute [0.0-0.0 x10^3/mcL] 0.0 x1 0^3/mcL (01/01/22 7:00 PM) UA Culture Ind?. Indicated *ABN* (01/01/22 6:48 PM) Urine Srce Clean Catch (01/01/22 6:48 PM) Urine Volume 12 mL (01/01/22 6:48 PM) Creatinine Level [0.60-1.30 mg/dL] 1.40 mg/dL *HI* (01/01/22 7:00 PM) Anion Gap [5-15 mmol/L] 15 mmol/L (01/01/22 7:00 PM) Eos, Auto 0.2 % *NA* (01/01/22 7:00 PM) UA Yeast [None Seen] None Seen (01/01/22 6:48 PM) ESR, Westergren [0-20 mm/hr] 25 mm/hr *HI* (01/01/22 7:00 PM) Vital Signs Most recent to oldest [Reference Range]: 1 Temperature Oral [35.8-37.3 Deg C] 37.0 Deg C (01/01/22 6:13 PM) Peripheral Pulse Rate [60-100 bpm] 122 b pm *HI* (01/01/22 6:13 PM) Respiratory Rate [12-24 br/min] 20 br/mi n (01/01/22 6:13 PM) Blood Pressure [90-140/60-90 mmHg] 139/7 9mmHg (01/01/22 6:13 PM) Weight Dosing 73.00 kg (01/01/22 6:29 PM) Weight Estimated 73.00 kg (01/01/22 6:13 PM) Height/Length Dosing 157.000 cm (01/01/22 6:29 PM) Height/Length Estimated 157.000 cm (01/01/22 6:13 PM) Social History Social History Type Response Tobacco Current some day tob acco user Tobacco Use:. Sex Hospital Discharge Instructions Patient Education 01/01/2022 20:05:59 Urinary Tract Infection, Adult Urinary Tract Infection, Adult A urinary tract infection (UTI) is an infection of any part of the urinary tract. The urinary tractincludes the kidneys, ureters, bladder, and urethra. These organs make, store, and get rid of urinein the body. An upper UTI affects the ureters and kidneys. A lower UTI affects the bladder and urethra. What are the causes? Most urinary tract infections are caused by bacteria in your genital area around your urethra, where urine leaves your body. These bacteria grow and cause inflammation of your urinary tract. What increases the risk? You are more likely to develop this condition if: ??? You have a urinary catheter that stays in place. ??? You are not able to control when you urinate or have a bowel movement (incontinence). ??? You are female and you: ??? Use a spermicide or diaphragm for control. ??? Have low estrogen levels. ??? Are . ??? You have certain genes that increase your risk. ??? You are sexually active. ??? You take antibiotic medicines. ??? You have a condition that causes your flow of urine to slow down, such as: ??? An enlarged prostate, if you are male. ??? Blockage in your urethra. ??? A kidney stone. ??? A nerve condition that affects your bladder control (neurogenic bladder). ??? Not getting enough to drink, or not urinating often. ??? You have certain medical conditions, such as: ??? Diabetes. ??? A weak disease-fighting system (immunesystem). ??? Sickle cell disease. ??? Gout. ??? Spinal cord injury. What are the signs or symptoms? Symptoms of this condition include: ??? Needing to urinate right away (urgency). ??? Frequent urination. This may include small amounts of urine each time you urinate. ??? Pain or burning with urination. ??? Blood in the urine. ??? Urine that smells bad or unusual. ??? Trouble urinating. ??? Cloudy urine. ??? Vaginal discharge, if you are female. ??? Pain in the abdomen or the lower back. You may also have: ??? Vomiting or a decreased appetite. ??? Confusion. ??? Irritability or tiredness. ??? A fever or chills. ??? Diarrhea. The first symptom in older adults may be confusion. In some cases, they may not have any symptoms until the infection has worsened. How is this diagnosed? This condition is diagnosed based on your medical history and a physical exam. You may also have other tests, including: ??? Urine tests. ??? Blood tests. ??? Tests for STIs (sexually transmitted infections). If you have had more than one UTI, a cystoscopy or imaging studies may be done to determine the cause of the infections. How is this treated? Treatment for this condition includes: ??? Antibiotic medicine. ??? Izcl-fan-xkdquat medicines to treat discomfort. ??? Drinking enough water to stay hydrated. If you have frequent infections or have other conditions such as a kidney stone, you may need to see a health care provider who specializes in the urinary tract (urologist). In rare cases, urinary tract infections can cause sepsis. Sepsis is a life- threatening condition that occurs when the body responds to an infection. Sepsis is treated in the hospital with IV antibiotics, fluids, and other medicines. Follow these instructions at home: Medicines ??? Take chop-hjd-vnrgeug and prescription medicines only as told by your health care provider. ??? If you were prescribed an antibiotic medicine, take it as told by your health care provider. Donot stop using the antibiotic even if you start to feel better. General instructions ??? Make sure you: ??? Empty your bladder often and completely. Do not hold urine for long periods of time. ??? Empty your bladder after sex. ??? Wipe from front to back after urinating or having a bowel movement if you are female. Use each tissue only one time when you wipe. ??? Drink enough fluid to keep your urine pale yellow. ??? Keep all follow-up visits. This is important. Contact a health care provider if: ??? Your symptoms do not get better after 1???2 days. ??? Your symptoms go away and then return. Get help right away if: ??? You have severe pain in your back or your lower abdomen. ??? You have a fever or chills. ??? You have nausea or vomiting. Summary ??? A urinary tract infection (UTI) is an infection of any part of the urinary tract, which includes the kidneys, ureters, bladder, and urethra. ??? Most urinary tract infections are caused by bacteria in your genital area. ??? Treatment for this condition often includes antibiotic medicines. ??? If you were prescribed an antibiotic medicine, take it as told by your health care provider. Donot stop using the antibiotic even if you start to feel better. ??? Keep all follow-up visits. This is important. This information is not intended to replace advice given to you by your health care provider. Make sure you discuss any questions you have with your health care provider. Document Revised: 10/16/2020 Document Reviewed: 10/16/2020 [employer] Patient Education ?? 2021 [employer]. 01/01/2022 20:05:44 Migraine Headache, Uzsu-wp-Mops Migraine Headache A migraine headache is a [...] these instructions at home: Medicines ??? Take yxmv-rji-odnqpsb and prescription medicines only as told by your doctor. ??? Ask your doctor if the medicine prescribed to you: ??? Requires you to avoid driving or using heavy machinery. ??? Can cause trouble pooping (constipation). You may need to take these steps to prevent or treat trouble pooping: ??? Drink enough fluid to keep your pee (urine) pale yellow. ??? Take lhtf-app-qulepuc or prescription medicines. ??? Eat foods that [...] Document Reviewed: 04/18/2019 Elsevier Patient Education ?? 2021 [employer] Follow Up Care 01/01/2022 18:13:29 With:Hermes Ramirez MD Address: [address] [place] [address], [address] [place] [phone]- When:2 to 4 days Patient Care team information Personnel Name: Hermes Ramirez MD Address: Address: [address] [place] [address], [address] [place] [phone]-
--- OUTSIDE RECORDS SUMMARY | 2024-03-20 11:37 | XMS_ITS | Continuity of Care Document ---
Author Organization [facility] Address [address] [place] [address] Care Team Providers Care Baker Chef Name Role Phone Hermes Ramirez Primary Care Physician Encounter ONOFREEver MCGRAW [id number] Date(s): 12/07/21 - 12/08/[address] [address] Encounter Diagnosis Migraine headache(Discharge Diagnosis) - 12/08/21 Discharge Disposition: Home or Self Care Attending [...] wheezing, # 6.7 g, 0 Refill(s), Pharmacy: [facility] [place], [place], 73, cm, 09/13/21 23:53:00 CDT, Height/Length [...] needed, # 12 cap, 0 Refill(s), Pharmacy: [place], [place], 157, cm, 11/04/21 20:02:00 CDT, Height/Length Dosing, 73, kg, 11/04/21 20:02:00 CDT, Weight Dosing Start Date: 11/04/21 Status: Ordered cefaclor 500 mg oral tablet, extended release 500 mg = 1 tab, Oral, BID, # 20 tab, 0 Refill(s), Pharmacy: [place], [place], 157, cm, 11/18/21 23:46:00 CDT, Height/Length Dosing, 73, kg, 11/18/21 23:46:00 CDT, Weight Dosing Start Date: 11/19/21 Stop Date: 11/29/21 Status: Ordered Fioricet with Codeine 50 mg-300 mg-40 mg-30 mg oral capsule 1 cap, Oral, every 4 hr, PRN as needed, # 12 cap, 0 Refill(s), Pharmacy: [place], [place], 157.[address], cm, 11/29/21 8:04:00 CDT, Height/Length [...] BID, # 180 tab, 3 Refill(s), Pharmacy: [place], [place], [address], cm, 10/22/20 21:26:00 CDT, Height/Length Dosing, 74, kg, 10/22/20 21:26:00 CDT, Weight Dosing Start Date: 12/18/20 Status: Ordered morphine 4 mg/mL preservative-free injectable solution 4 mg = 1 mL, IM, Once, 0 Refill(s) Start Date: 11/25/21 Status: Ordered ondansetron 4 mg oral tablet, disintegrating 4 mg = 1 tab, Oral, every 6 hr, PRN nausea/vomiting, # 12 tab, 0 Refill(s), Pharmacy: [place], [place], [address], cm, 11/04/21 20:02:00 CDT, Height/Length [...] nausea/vomiting, # 20 tab, 0 Refill(s), Pharmacy: [place], [place], [address], cm, 09/29/21 23:03:00 CDT, Height/Length [...] Oral [35.8-37.3 Deg C] 37.1 Deg C (12/07/21 11:59 PM) Peripheral Pulse Rate [60-100 bpm] 113 b pm *HI* (12/07/21 11:59 PM) Respiratory Rate [12-24 br/min] 18 br/mi n (12/07/21 11:59 PM) Blood Pressure [90-140/60-90 mmHg] 138/9 5mmHg (12/07/21 11:59 PM) Weight Dosing 73.00 kg (12/08/21 12:05 AM) Weight Estimated 73.00 kg (12/07/21 11:59 PM) Height/Length Dosing 157.000 cm (12/08/21 12:05 AM) Height/Length Estimated 157.000 cm (12/07/21 11:59 PM) Social History Social History Type Response Tobacco Current everyday tob acco user Tobacco Use:. Sex Hospital Discharge Instructions Patient Education 12/08/2021 00:08:13 Chronic Migraine Headache Chronic Migraine Headache A [...] these instructions at home: Medicines ??? Take vtvy-zid-esllsgn and prescription medicines only as told by [...] Headache and Migraine Patients (CHAMP): headachemigraine.org ??? [place] Migraine Foundation: americanmigrainefoundation.org ??? National Headache Foundation: [...] Reviewed: 04/22/2020 Elsevier Patient Education ?? 2021 [employer] Follow Up Care 12/07/2021 23:59:02 With:Hermes Ramirez MD Address: [address] [place] [address], [address] [place] [phone]- When:1 month Patient Care team information Personnel Name: Hermes Ramirez MD Address: Address: [address] [place] [address], [address] [place] [id number]
--- OUTSIDE RECORDS SUMMARY | 2024-03-20 11:37 | XMS_ITS | Continuity of Care Document ---
Author Organization [facility] Address [address] [place] [address] Care Team Providers Care As400 Developer Name Role Phone Hermes Ramirez Primary Care Physician Encounter [place] [id number] Date(s): 10/31/21 - 10/31/[address] [address] Encounter Diagnosis Migraine(Discharge Diagnosis) - 10/31/21 Hypertension(Discharge Diagnosis) - 10/31/21 Discharge Disposition: Home or Self Care Attending Physician: Maryam Cortés MD Admitting Physician: Maryam Cortés MD Allergies, Adverse Reactions, Alerts Substance Reaction Severity Status codeine Unknown Itching Severe Active gentamicin Moderate Active erythromycin Medication interaction Activ e azithromycin Unknown Severe Active aspirin Medication interaction Severe Activ e Toradol Kidney failure as a complication of care Severe Active NSAIDs Severe Active Functional Status 10/31/21 Family Member Travel History No recent t [...] wheezing, # 6.7 g, 0 Refill(s), Pharmacy: [place], [place], 73, cm, 09/13/21 23:53:00 CDT, Height/Length [...] BID, # 180 tab, 3 Refill(s), Pharmacy: [place], [place], [address], cm, 10/22/20 21:26:00 CDT, Height/Length [...] nausea/vomiting, # 20 tab, 0 Refill(s), Pharmacy: [place], [place], [address], cm, 09/29/21 23:03:00 CDT, Height/Length [...] Name Date Urinalysis with Culture if Indicated 10/18 07/09 .Urine Volume 10/31/21 Urinalysis Microscopic 10/31/21 Most recent to oldest [Reference Range]: 1 UA Color Yellow (10/31/21 12:56 AM) UA WBC [0-5] 0-5 (10/31/21 12:56 AM) UA Urobilinogen [Normal mg/dL] Normal mg /dL (10/31/21 12:56 AM) UA Bili [Negative mg/dL] Negative mg/dL (10/31/21 12:56 AM) UA Ketones [Negative mg/dL] Negative mg/ dL (10/31/21 12:56 AM) UA RBC [0-3] 0-3 (10/31/21 12:56 AM) UA Leuk Est [Negative Guille/mcL] Negative Guille/mcL (10/31/21 12:56 AM) UA Nitrite [Negative] Negative (10/31/21 12:56 AM) UA Glucose [Normal mg/dL] Normal mg/dL (10/31/21 12:56 AM) UA Bacteria [None Seen] Occasional *ABN* (10/31/21 12:56 AM) UA Protein [Negative mg/dL] Negative mg/ dL (10/31/21 12:56 AM) UA Blood [Negative Rocael/mcL] Negative Rocael /mcL (10/31/21 12:56 AM) UA Mucous [None Seen] None Seen (10/31/21 12:56 AM) UA Spec Grav 1.015 (10/31/21 12:56 AM) UA Squam Epithelial [None Seen] Few (10/31/21 12:56 AM) UA pH [5.0-9.0] 6.0 (10/31/21 12:56 AM) UA Appear [Clear] Clear (10/31/21 12:56 AM) UA Culture Ind?. Not Indicated (10/31/21 12:56 AM) Urine Srce Clean Catch (10/31/21 12:56 AM) Urine Volume 12 mL (10/31/21 12:56 AM) UA Yeast [None Seen] None Seen (10/31/21 12:56 AM) Vital Signs Most recent to oldest [Reference Range]: 1 2 3 Temperature Oral [35.8-37.3 Deg C] 36.8 Deg C (10/31/21 12:19 AM) Peripheral Pulse Rate [60-100 bpm] 84 bpm (10/31/21 1:39 AM) 74 bpm (10/31/21 1:23 AM) 78 bpm (10/31/21 1:01 AM) Respiratory Rate [12-24 br/min] 18 br/min (10/31/21 1:39 AM) 18 br/min (10/31/21 1:23 AM) 18 br/min (10/31/21 1:01 AM) Blood Pressure [90-140/60-90 mmHg] 140/87mmHg (10/31/21 1:39 AM) 142/80mmHg *HI* (10/31/21 1:23 AM) 143/85mmHg *HI* (10/31/21 1:01 AM) Weight 73.00 kg (10/31/21 12:19 AM) Weight Dosing 73.00 kg (10/31/21 12:31 AM) Height 157.000 cm (10/31/21 12:19 AM) Height/Length Dosing 157.000 cm (10/31/21 12:31 AM) Social History Social History Type Response Smoking Status 5-9 cigarettes (betw een 1/4 to 1/2 pack)/day in last 30 days entered on: 05/12/21 Sex Hospital Discharge Instructions Patient Education 10/31/2021 01:29:54 Migraine Headache, Dgmo-sl-Qowh Migraine Headache A migraine headache is a [...] these instructions at home: Medicines ??? Take udpu-btr-vwuqnrj and prescription medicines only as told by your doctor. ??? Ask your doctor if the medicine prescribed to you: ??? Requires you to avoid driving or using heavy machinery. ??? Can cause trouble pooping (constipation). You may need to take these steps to prevent or treat trouble pooping: ??? Drink enough fluid to keep your pee (urine) pale yellow. ??? Take xfkg-wmm-czqlula or prescription medicines. ??? Eat foods that [...] Reviewed: 04/18/2019 Elsevier Patient Education ?? 2020 [employer] Follow Up Care 10/31/2021 00:19:41 With:Hermes Ramirez MD Address: [address] [place] [address], [address] [place] [phone]- When:3 to 5 days Patient Care team information Personnel Name: Hermes Ramirez MD Address: Address: [address] [place] [address], [address] [place] [address]
--- OUTSIDE RECORDS SUMMARY | 2024-03-20 11:37 | XMS_ITS | Continuity of Care Document ---
Author Organization Formerly [facility], [facility] Address [address] [place] [address] Care Team Providers Care Agricultural Purchasing Agent Name Role Phone Hermes Ramirez Primary Care Physician Encounter ONOFREEver MCGRAW [id number] Date(s): 03/02/23 - 03/02/[address] [address]- [place] Encounter Diagnosis Headache, migraine(Discharge Diagnosis) - 03/02/23 Discharge Disposition: Home or Self Care Attending [...] Daily, # 30 tab, 11 Refill(s), Pharmacy: [place], [place], 157.48, cm, 01/04/23 15:03:00 CDT, Height/Length [...] BID, # 60 cap, 11 Refill(s), Pharmacy: [place], [place], 157.48, cm, 01/04/23 15:03:00 CDT, Height/Length [...] [35.8-37.3 Deg C] 37 De g C (03/02/23 8:55 AM) Peripheral Pulse Rate [60-100 bpm] 70 bp m (03/02/23 11:31 AM) 88 bpm (03/02/23 8:55 AM) Respiratory Rate [12-24 br/min] 20 br/mi n (03/02/23 8:55 AM) Blood Pressure [90-140/60-90 mmHg] 158/1 06mmHg *HI* (03/02/23 11:31 AM) 182/114mmHg *HI* (03/02/23 8:55 AM) Mean Arterial Pressure, Cuff [70-110 mmH g] 137 mmHg *>HHI* (03/02/23 8:55 AM) Weight 86.64 kg (03/02/23 8:55 AM) Weight Dosing 86.640 kg (03/02/23 8:55 AM) Height 157 cm (03/02/23 8:55 AM) Body Mass Index 35.15 kg/m2 (03/02/23 8:55 AM) Social History Social History Type Response Tobacco Current everyday tob acco user Tobacco Use:. Sex Hospital Discharge Instructions Patient Education 03/02/2023 10:40:42 Migraine Headache Migraine Headache A migraine headache [...] these instructions at home: Medicines ??? Take yjuf-ejf-pgubpiu and prescription medicines only as told by your health care provider. ??? Ask your health care provider if the medicine prescribed to you: ??? Requires you to avoid driving or using heavy machinery. ??? Can cause constipation. You may need to take these actions to prevent or treat constipation: ??? Drink enough fluid to keep your urine pale yellow. ??? Take ynwf-hju-zxbzqdx or prescription medicines. ??? Eat foods that [...] provider. Document Revised: 06/28/2019 Document Reviewed: 04/18/2019 [employer] Patient Education ?? 2022 [employer]. Follow Up Care 03/02/2023 08:55:07 With:Follow up with specialist Address:Unknown When:1 to 2 days Comments:follow up with neurologist as soon as possible Physician Emergency department Note * Andrew Francis DO: MODIFY, PERFORM Event Display: ED Note Physician Authored Date: [id number] MISHA JACKSON :1980 Age:42 years Sex:Female Visit Date:03/02/2023 Primary Care Physician: Hermes Ramirez MD Basic Information Time Seen: Andrew Francis DO / 03/02/2023 09:21 Chief Complaint c/o migraine since last 1999 with nausea. ??tylenol at 0700. ??hx of migraines. ??has been seen recently in ED. History Of Present Illness: Planes of right sided headache??since last night??patient states she is out of her Fioricet??she sees a neurologist??in 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??and cannot have NSAIDs Review of Systems: Constitutional:?No??fevers,?No??chills,?No??sweats Eye:?No??recent visual problems ENT:?No??ear pain,?No??nasal congestion,?No??sore throat Respiratory:?No??shortness of breath,?No??cough Cardiovascular:?No??Chest pain,?No??palpitations,?No??syncope Gastrointestinal:?Nonausea,?No??vomiting,?No??diarrhea Genitourinary:?No??hematuria Clemente/Lymph:?No??bruising tendency,?No??swollen lymph glands Endocrine:?No??excessive thirst,??No??excessive hunger Musculoskeletal:??No??back pain,??No??neck pain,??No??joint pain,??No??muscle pain,??No??decreased range of motion Integumentary:?No??rash,?No??pruritus,?No??abrasions Neurologic: Alert & oriented X 4/co headache Psychiatric:?No??anxiety,?No??depression Physical Exam Vitals & Measurements T:??37?C ??(Oral)?? HR:??88??(Peripheral)?? RR:??20?? BP:??182/114?? SpO2:??100%?? HT:??157??cm?? WT:??86.64??kg?? BMI:??35.15?? Pain Score:??8?? O2 Therapy:??Room air?? General: Alert [...] and affect. Procedure No Qualifying Data Reexamination/Reevaluation pain improved Assessment/Plan Headache, migraine??G43.909 Patient Discharge Condition good Discharge Disposition home Patient Education Migraine Headache Follow Up With When Contact Information Follow up with specialist Within 1 to 2 days Additional Instructions: follow up with neurologist as soon as possible Medication Reconciliation Unchanged amLODIPine (amLODIPine 5 mg [...] (12/14/2020)???Kidney transplant (05/13/2020)???Tx - Liver transplantation (05/08/2020)???Mammogram (2021)??? delivery???cyst removal from [place]???[place]???liver transplant Allergies NSAIDs Toradol??(Kidney failure as a complication of care) aspirin??(Medication interaction) azithromycin??(Unknown) codeine??(Unknown, Itching) gentamicin erythromycin??(Medication interaction) Social History Alcohol Never Electronic Cigarette/Vaping Electronic Cigarette Use: Never. Substance Use Never Tobacco Current everyday tobacco user Tobacco Use:.- Comments: Pt states that she smokes half a pack a day. Family History Cancer: Mother. Electronically Signed on 03/02/23 10:41 AM Andrew Francis DO Patient Care team information Care Team Personnel Name: Jessee Jones SURVEILLANCE INVESTIGATOR Position: Physician Member Role: Nurse Practitioner Address: Address: [address] [place] [address], [address] Name: Latoya Marquez SURVEILLANCE INVESTIGATOR Position: Physician Member Role: Nurse Practitioner Address: Address: [address] [place] [address] Name: Leonila Gonzalez SURVEILLANCE INVESTIGATOR Position: Physician Member Role: Nurse Practitioner Address: Address: [address] [place] [address] Name: Beth Brandt SURVEILLANCE INVESTIGATOR Position: Physician Member Role: Nurse Practitioner Address: Address: [address] [place] [address] Name: Hermes Ramirez MD Position: Physician Member Role: Primary Care Physician Address: Address: [address] [place] [address], [address] [place] [address] Name: Anamika Gore MD Position: Physician - Women's Health Member Role: Informed Provider Name: Pillo Moe SURVEILLANCE INVESTIGATOR Position: Physician Member Role: Nurse Practitioner Address: Address: [address] [place] [address], [address] Name: Gia Underwood RN Position: Nurse Member Role: ED Nurse Name: Andrew Francis DO Position: Physician Member Role: Admitting Physician Care Team Related Persons Name: STACIA JONES Address: Home [address] [place] [phone] Name: ROBYN JAMA
--- OUTSIDE RECORDS SUMMARY | 2024-03-20 11:37 | XMS_ITS | Continuity of Care Document ---
Author Organization [facility] Address [address] [place] [address]- Care Team Providers Care Canopy Inspector Name Role Phone Hermes Ramirez Primary Care Physician Encounter ONOFRE MARILUZ [id number] Date(s): 04/06/22 - 04/06/22 [facility] [address], [place] [address] Encounter Diagnosis Chronic paronychia of finger(Discharge Diagnosis) - 04/06/22 Chronic neck pain(Discharge Diagnosis) - 04/06/22 Other chronic pain(Discharge Diagnosis) - 04/06/22 Migraine headache(Discharge Diagnosis) - 04/06/22 Discharge Disposition: Home or Self Care Attending [...] Ova + Parasite Exam 04/07/22 Functional Status 04/06/22 Other exposure to Infectious Disease Non e [...] wheezing, # 6.7 g, 0 Refill(s), Pharmacy: [place], [place], 73, cm, 09/13/21 23:53:00 CDT, Height/Length [...] needed, # 12 cap, 0 Refill(s), Pharmacy: [place], [place], 157, cm, 11/04/21 20:02:00 CDT, Height/Length [...] BID, # 180 tab, 3 Refill(s), Pharmacy: [facility], 157.48, cm, 02/07/22 18:45:00CST, Height/Length Dosing, 72.57, kg, 02/07/22 18:45:00 ASSISTANT PARALEGAL, Weight Dosing Start Date: 02/13/22 Status: Ordered oseltamivir 30 mg oral capsule 30 mg = 1 cap, Oral, BID, # 10 cap, 0 Refill(s), Pharmacy: [place], [place], 157.48, cm, 03/16/22 18:01:00 ASSISTANT PARALEGAL, Height/Length Dosing, 77.11, kg, 03/16/22 18:01:00 ASSISTANT PARALEGAL, Weight Dosing Start Date: 03/16/22 Status: Ordered Pepcid 20 mg oral tablet 20 mg = 1 tab, Oral, BID, 0 Refill(s) Start Date: 09/29/20 Status: Ordered Phenergan 25 mg oral tablet 25 mg = 1 tab, Oral, every 6 hr, PRN as needed for nausea/vomiting, # 20 tab, 0 Refill(s), Pharmacy: [place], [place], 157, cm, 09/29/21 23:03:00 CDT, Height/Length Dosing, 77, kg, 09/29/21 23:03:00 CDT, Weight Dosing Start Date: 09/29/21 Stop Date: 10/04/21 Status: Ordered Sod Bicarb Tab 10gr 1000 [...] Thrombocytopenia Confirmed Active Intractable migraine Confirmed Active Sprain of knee Confirmed Active [...] 1 Temperature Tympanic [36.6-37.9 Deg C] 3 6.9 Deg C (04/06/22 2:15 PM) Peripheral Pulse Rate [60-100 bpm] 101 b pm *HI* (04/06/22 2:15 PM) Blood Pressure [90-140/60-90 mmHg] 116/6 8mmHg (04/06/22 2:15 PM) Weight 82.55 kg (04/06/22 2:15 PM) Weight Measured (lbs) 181.991 lb (04/06/22 2:15 PM) Height 157.48 cm (04/06/22 2:15 PM) Height/Length Measured (inches) 62 inch (04/06/22 2:15 PM) BSA Measured 1.9 m2 (04/06/22 2:15 PM) Body Mass Index 33.29 kg/m2 (04/06/22 2:15 PM) Social History Social History Type Response Smoking Status 5-9 cigarettes (betw een 1/4 to 1/2 pack)/day in last 30 days entered on: 05/12/21 Sex Physician Outpatient Note * Hermes Ramirez MD: PERFORM Event Display: Office Clinic Note Physician Authored Date: [id number] MISHA JACKSON :1980 Age:41 years Sex:Female Visit Date:04/06/2022 Primary Care Physician: Hermes Ramirez MD Chief Complaint Patinet here for Right middle finger pain and back pain for past few months History of Present Illness MISHA JACKSON??is a??41 Years??old??Female??presenting today with??Chief Complaint: Patient here for Right middle finger pain and back pain for past few months (04/06/22 14:15:00).?? She has chronic??paronychia of the right middle finger.?? She saw Dr. Ramirez??last year??but was having many other medical issues at the time and was unable to have a procedure then. ??She would like to address it now.?? She has chronic neck pain??and is getting scheduled??injections through the pain clinic.?? Her chronic migraines continue to plague her life.?? She thinks it is due to her antirejection??medication tacrolimus.?? Many many years ago she was on cyclosporine and did not have headaches at that time. Review of Systems Constitutional:?No??fevers Respiratory:?No??shortness of breath Cardiovascular:?No??Chest pain Gastrointestinal:?No??abd pain Physical Exam Vitals & Measurements T:??36.9?C ??(Tympanic)?? HR:??101??(Peripheral)?? BP:??116/68?? SpO2:??97%?? HT:??157.48??cm?? WT:??82.55??kg?? BMI:??33.29?? BSA:??1.9?? General: Alert and oriented, well nourished,?No??acute distress Lungs: Clear to auscultation,?Non-labored?? respiration Heart:?Normal?? rate,?Regular??rhythm,?No??murmur,?No??gallop Ext:??Chronic paronychia of the right middle finger. Depression Screen?? PHQ 2?? PHQ 9?? Feeling Down, Depressed, Hopeless: Several days Detailed Depression Screen Score: 2 Initial Depression Screen Score: 2 Score Feeling Bad About Yourself: Not at all Little Interest - Pleasure in Activities: Several days Feeling Tired or Little Energy: Several days ?? Moving or Speaking Slowly: Not at all ?? Poor Appetite or Overeating: Not at all ?? Thoughts Better Off or Hurting Self: Not at all ?? Total Depression Screen Score: 4 ?? Trouble Concentrating: Not at all ?? Trouble Falling or Staying Asleep: Several days Assessment/Plan 1.??Chronic paronychia of finger??L03.019 We will set back up for Dr. Ramirez. 2.??Chronic neck pain??M54.2 She has upcoming??injections through pain clinic. 3.??Migraine headache??G43.909 She is working with her??transplant doctors in [place]??about changing her??antirejection medication??which she believes is behind her??migraines. Other chronic pain??G89.29 Problem List/Past Medical History Ongoing Acne Anxiety Cervicalgia Chronic neck pain Chronic pain Chronic pain Chronic paronychia of finger Congenital biliary atresia Constipation Degenerative disc disease, cervical Difficulty sleeping Foraminal stenosis of cervical region Gout Heart murmur History of burning pain in [...] Flank pain Headache, chronic migraine without aura Headache, migraine, intractable Health education/counseling Influenza A Intractable chronic migraine [...] mg oral tablet, 1 tab, Oral, BID oseltamivir 30 mg oral capsule, 30 mg= 1 cap, Oral, BID Pepcid 20 mg oral tablet, 20 mg= 1 tab, Oral, BID Phenergan 25 mg oral tablet, 25 mg= 1 tab, Oral, every 6 hr, PRN Sod Bicarb Tab 10gr 1000 Rsg tacrolimus [...] days Tobacco Use:. Family History Cancer: Mother. Immunizations Vaccine Date Status tetanus/diphth/pertuss (Tdap) adult/adol 10/18/2021 Given hepatitis B adult vaccine 11/10/2017 Recorded hepatitis B adult vaccine 10/09/2017 Recorded hepatitis A adult vaccine 10/09/2017 Recorded tetanus/diphth/pertuss (Tdap) adult/adol 05/10/2017 Recorded tetanus/diphth/pertuss (Tdap) adult/adol 03/20/2017 Recorded tetanus/diphth/pertuss (Tdap) adult/adol 05/25/2012 Recorded Electronically Signed on 04/06/22 02:42 PM Hermes Ramirez MD Patient Care team information Personnel Name: Hermes Ramirez MD Address: Address: [address] [place] [address], [address] [place] [address]
--- OUTSIDE RECORDS SUMMARY | 2024-03-20 11:37 | XMS_ITS | Continuity of Care Document ---
Author Organization [facility] Address [address] [place] [address] Care Team Providers Care Creative Perfumer Name Role Phone Hermes Ramirez Primary Care Physician [phone] Encounter ONOFRE MARILUZ [id number] Date(s): 03/04/24 - 03/04/[address] [address]- [place] Encounter Diagnosis Headache, migraine(Discharge Diagnosis) - 03/04/24 Discharge Disposition: Home or Self Care Attending Physician: Dilip Delgado MD Admitting Physician: Dilip Delgado MD Allergies, Adverse Reactions, Alerts Substance Criticality [...] Daily, # 30 tab, 11 Refill(s), Pharmacy: [place], [place], 157.48, cm, 01/04/23 15:03:00 CDT, Height/Length Dosing, 81.65, kg, 01/04/23 15:03:00 CDT, Weight Dosing Start Date: 01/11/23 Status: Ordered azaTHIOprine 50 mg oral tablet 0 Refill(s) Start Date: 01/30/24 Status: Ordered Envarsus XR 1 mg oral tablet, extended release 0 Refill(s) Start Date: 01/30/24 Status: Ordered Envarsus XR 4 mg oral tablet, extended release 0 Refill(s) Start Date: 01/30/24 Status: Ordered gabapentin 300 mg oral capsule 600 mg = 2 cap, Oral, BID, # 120 cap, 2 Refill(s), Pharmacy: [facility], 157.5, cm,02/06/24 16:22:00 INTERIOR SPECIALIST, Height, 89.91, kg, 02/06/24 16:28:00 INTERIOR SPECIALIST, Weight Dosing Start Date: 02/07/24 Status: Ordered LORazepam 0.5 mg oral tablet TAKE ONE TABLET BY MOUTH DAILY NEEDED FOR ANXIETY Start Date: 12/18/20 Status: Ordered metoprolol succinate 100 mg oral capsule, extended release 100 mg = 1 cap, Oral, BID, # 60 cap, 11 Refill(s), Pharmacy: [place], [place], 157.48, cm, 01/04/23 15:03:00 CDT, Height/Length Dosing, 81.65, kg, 01/04/23 15:03:00 CDT, Weight Dosing Start Date: 01/11/23 Status: Ordered Mounjaro 2.5 mg/0.5 mL subcutaneous solution 2.5 mg =, Subcutaneous, every week, rotate injection sites, # 4 EA, 0 Refill(s), Pharmacy: [id number], 157.48, cm, 02/12/24 8:34:00 INTERIOR SPECIALIST, Height, 91.63, kg, 02/28/24 15:55:00 INTERIOR SPECIALIST, Weight Dosing Start Date: 02/28/24 Status: Ordered nicotine 21 mg/24 hr transdermal film, extended release 1 patches, Transdermal, Daily, # 14 patches, 1 Refill(s), Pharmacy: [id number], 157.48, cm, 01/01/24 14:49:00 CDT, Height, 87.09, kg, 01/01/24 14:53:00 CDT, Weight Dosing Start Date: 01/01/24 Status: Ordered pantoprazole 40 mg oral delayed release tablet 1 tab, Oral, Daily, # 90 tab, 0 Refill(s), Pharmacy: [id number], 157.48, cm, 06/07/23 16:07:00 CDT, Height, 89.36, kg, 06/19/23 15:32:00 CDT, Weight Dosing Start Date: 06/20/23 Status: Ordered predniSONE 5 mg oral tablet 5 mg = 1 tab, Oral, Daily, with food or milk, # 30 tab, 0 Refill(s) Start Date: 02/06/24 Status: Ordered sucralfate 1 g oral tablet 1 tab, Oral, QID, # 360 tab, 0 Refill(s), Pharmacy: [id number], 157.48, cm, 08/29/23 14:22:00 CDT, Height, 88, kg, 08/29/23 14:27:00 CDT, Weight Dosing Start Date: 09/05/23 Status: Ordered Topamax 25 mg oral tablet 25 mg = 1 tab, Oral, BID, # 60 tab, 2 Refill(s), Pharmacy: [id number], 157.48, cm, 02/12/24 8:34:00 INTERIOR SPECIALIST, Height, 91.63, kg, 02/28/24 15:55:00 INTERIOR SPECIALIST, Weight Dosing Start Date: 02/28/24 Status: Ordered Topamax 50 mg oral tablet 50 mg = 1 tab, Oral, BID, # 60 tab, 2 Refill(s), Pharmacy: [id number], 157.48, cm, 02/12/24 8:34:00 INTERIOR SPECIALIST, Height, 91.63, kg, 02/28/24 15:55:00 INTERIOR SPECIALIST, Weight Dosing Start Date: 02/28/24 Status: Ordered venlafaxine 37.5 mg oral capsule, extended release 1 cap, Oral, Daily, # 30 cap, 2 Refill(s), Pharmacy: [id number], 157.48, cm, 02/12/24 8:34:00 INTERIOR SPECIALIST, Height, 91.63, kg, 02/28/24 15:55:00 INTERIOR SPECIALIST, Weight Dosing Start Date: 02/28/24 Status: Ordered Problem List Condition Confirmation Course Effective Dates Status H ealth Status Informant Acne Confirmed Active Anxiety Confirmed Active Breast lump on left side at 3 o'clock position Confirmed Active Chronic back pain Confirmed Active Headache, chronic migraine without aura, intractable Confirmed Active Chronic neck pain Confirmed Active Chronic pain Confirmed Active Chronic pain Confirmed Active Congenital biliary atresia Confirmed Active Constipation Confirmed Active Degenerative disc disease, cervical Confirmed Active Gout Confirmed Active History of liver transplant Confirmed Active Heart murmur Confirmed Active History of fall Confirmed Active History of kidney transplant Confirmed Active Idiopathic thrombocytopenic purpura Confirmed Active Migraine headache Confirmed Active Pain, joint, multiple sites Confirmed Active Pulmonary nodules Confirmed Active Cervicalgia Confirmed Active Obesity Confirmed Active Right knee pain Confirmed Active Pain of right scapula Confirmed Active Numbness and tingling of right arm Confirmed Active Chronic paronychia of finger Confirmed Active PUD (peptic ulcer disease) Confirmed Active Thrombocytopenia Confirmed Active Right shoulder pain Confirmed Active 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 Edema Confirmed Active Tachycardia Confirmed [...] 2 3 Temperature Oral [35.8-37.3 Deg C] 37.0 Deg C (03/04/24 3:15 PM) Peripheral Pulse Rate [60-100 bpm] 86 bpm (03/04/24 4:32 PM) Heart Rate Monitored [60-100 bpm] 76 bpm (03/04/24 5:07 PM) 86 bpm (03/04/24 4:32 PM) 72 bpm (03/04/24 3:15 PM) Respiratory Rate [12-24 br/min] 18 br/min (03/04/24 5:07 PM) 18 br/min (03/04/24 4:32 PM) 14 br/min (03/04/24 3:15 PM) Blood Pressure [90-120/60-80 mmHg] 132/88mmHg *HI* (03/04/24 5:07 PM) 136/74mmHg *HI* (03/04/24 4:32 PM) 142/85mmHg *HI* (03/04/24 3:15 PM) Mean Arterial Pressure, Cuff [65-140 mmHg] 103 mmHg (03/04/24 5:07 PM) 95 mmHg (03/04/24 4:32 PM) 104 mmHg (03/04/24 3:15 PM) Social History Social History Type Response Tobacco Current everyday tob acco user Tobacco Use:. Sex Sex Representation Female (finding) Hospital Discharge Instructions Patient Education 03/04/2024 15:58:03 Migraine Headache, Prun-fa-Asqv Migraine Headache A migraine headache is a [...] these instructions at home: Medicines ??? Take lyyw-njt-zprsrop and prescription medicines only as told by your doctor. ??? Ask your doctor if the medicine prescribed to you: ??? Requires you to avoid driving or using heavy machinery. ??? Can cause trouble pooping (constipation). You may need to take these steps to prevent or treat trouble pooping: ??? Drink enough fluid to keep your pee (urine) pale yellow. ??? Take feph-wql-boygowr or prescription medicines. ??? Eat foods that [...] provider. Document Revised: 08/18/2022 Document Reviewed: 04/18/2019 [employer] Patient Education ?? 2022 [employer]. Follow Up Care 03/04/2024 15:06:42 With:Follow up with primary care provider Address:Unknown When:2 to 4 days Comments:Rest in quiet dark room. Avoid cheese chocolate or wine. Follow-up with PMD in 2 days or as needed. Patient Care team information Care Team Personnel Name: Jessee Jones STAFF ELECTRICAL ENGINEER Position: Physician Member Role: Nurse Practitioner Address: [address] [place] [address], [address] Name: Latoya Marquez STAFF ELECTRICAL ENGINEER Position: Physician Member Role: Nurse Practitioner Address: [address] [place] [address] Name: Leonila Gonzalez STAFF ELECTRICAL ENGINEER Position: Physician Member Role: Nurse Practitioner Address: [address] [place] [address] Name: Beth Brandt STAFF ELECTRICAL ENGINEER Position: Physician Member Role: Nurse Practitioner Address: [address] [place] [address] Name: Hermes Ramirez MD Position: Physician Member Role: Informed Provider Address: [address] [place] [address], [facility] [address] Name: Pillo Moe STAFF ELECTRICAL ENGINEER Position: Physician Member Role: Nurse Practitioner Address: [address] [place] [address], [address] Care Team Related Persons Name: STACIA JONES Name: ROBYN JAMA Name: NAIF CHOI Name: MADY CHEN Name: MADY CHEN Insurance Providers Guarantor name: MISHA Curtis JACKSON Health Plan Information #: 1 Payer: [employer] Member Number: [id number] Policy Number: NA Health Plan Information #: 2 Payer: [employer] Member Number: [id number] Policy Number: NA
--- OUTSIDE RECORDS SUMMARY | 2024-03-20 11:37 | XMS_ITS | Continuity of Care Document ---
Author Organization [facility] Address [address] [place] [address] Care Team Providers Care Delphi Developer Name Role Phone Hermes Ramirez Primary Care Physician Encounter [facility] [id number] Date(s): 01/26/24 - 01/26/[address] [address]- [place] Encounter Diagnosis Chronic neck pain(Discharge Diagnosis) - 01/26/24 Other chronic pain(Discharge Diagnosis) - 01/26/24 Discharge Disposition: Home or Self Care Attending Physician: Mauricio Limon MD Admitting Physician: Mauricio Limon MD Allergies, Adverse Reactions, Alerts Substance Criticality [...] from: Title:ED Provider Note Author:Mauricio Limon MD Date:01/26/24 Assessment/Plan Chronic neck pain??M54.2 Other chronic pain??G89.29 Orders: Discharge Patient, 01/26/24 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 Discharge Condition Stable condition Discharge Disposition Discharge home Patient Education Chronic Pain, Adult Follow Up With When Contact Information Follow up with primary care provider Within 3 to 5 days Additional Instructions: Follow up with primary care provider Within 1 month Additional Instructions: Future Appointments Future Scheduled Tests [...] Daily, # 30 tab, 11 Refill(s), Pharmacy: [place], [place], 157.48, cm, 01/04/23 15:03:00 CDT, Height/Length Dosing, 81.65, kg, 01/04/23 15:03:00 CDT, Weight Dosing Start Date: 01/11/23 Status: Ordered amoxicillin 875 mg oral tablet 875 mg = 1 tab, Oral, BID, # 14 tab, 0 Refill(s), Pharmacy: [id number], 157.48, cm, 01/01/24 14:49:00 CDT, Height, [...] BID, # 120 cap, 2 Refill(s), Pharmacy: [id number], 157.48, cm, 07/23/23 17:59:00 CDT, Height, [...] BID, # 60 cap, 11 Refill(s), Pharmacy: [facility] [place], 157.48, cm, 01/04/23 15:03:00 CDT, Height/Length Dosing, 81.65, kg, 01/04/23 15:03:00 CDT, Weight Dosing Start Date: 01/11/23 Status: Ordered morphine 2 mg/mL preservative-free injectable solution 2 mg = 1 mL, Intramuscular, Once, 0 Refill(s) Start Date: 01/14/24 Status: Ordered nicotine 21 mg/24 hr transdermal film, extended release 1 patches, Transdermal, Daily, # 14 patches, 1 Refill(s), Pharmacy: [id number], 157.48, cm, 01/01/24 14:49:00 CDT, Height, 87.09, [...] QID, # 360 tab, 0 Refill(s), [facility]: [id number], 157.48, cm, 08/29/23 14:22:00 CDT, Height, 88, kg, 08/29/23 14:27:00 CDT, Weight Dosing Start Date: 09/05/23 Status: Ordered venlafaxine 37.5 mg oral capsule, extended release 37.5 mg = 1 cap, Oral, Daily, # 90 cap, 0 Refill(s), Pharmacy: [id number] [place], 157.48, cm, 09/28/23 18:18:00 CDT, Height, 81.65, [...] [35.8-37.3 Deg C] 37 De g C (01/26/24 2:42 AM) Peripheral Pulse Rate [60-100 bpm] 70 bp m (01/26/24 2:42 AM) Respiratory Rate [12-24 br/min] 20 br/mi n (01/26/24 2:42 AM) Blood Pressure [90-120/60-80 mmHg] 170/1 02mmHg *HI* (01/26/24 2:42 AM) Mean Arterial Pressure, Cuff [65-140 mmH g] 125 mmHg (01/26/24 2:42 AM) Weight 83 kg (01/26/24 2:42 AM) Weight Dosing 83.000 kg (01/26/24 2:42 AM) Height 157 cm (01/26/24 2:42 AM) Body Mass Index 33.67 kg/m2 (01/26/24 2:42 AM) Social History Social History Type Response Tobacco Current everyday tob acco user Tobacco Use:. Sex Sex Representation Female (finding) Hospital Discharge Instructions Patient Education 01/26/2024 03:41:08 Chronic Pain, Adult Chronic Pain, Adult Chronic [...] skin (aromatherapy). Other treatments may include: ??? Cfrr-rju-uqziwvr or prescription medicines. ??? Color, light, or sound therapy. ??? Local electrical stimulation. The electrical pulses help to relieve pain by temporarily stopping the nerve impulses that cause you to feel pain. ??? Injections. These deliver numbing or pain-relieving medicines into the spine or the area of pain. Medicines ??? Take ojfu-clm-ipyampg and prescription medicines only as told by your health care provider. ??? Ask your health care provider if the medicine prescribed to you: ??? Requires you to avoid driving or using machinery. ??? Can cause constipation. You may need to take these actions to prevent or treat constipation: ??? Drink enough fluid to keep your urine pale yellow. ??? Take nupg-bnl-jeskakg or prescription medicines. ??? Eat foods that [...] the National Suicide Prevention Lifeline at or 582. This is open 24 hours aday. ??? Text the Crisis Text Line at 289874. This information is not intended to replace advice given to you by your health care provider. Make sure you discuss any questions you have with your health care provider. Document Revised: 10/26/2022 Document Reviewed: 09/28/2022 [employer] Patient Education ?? 2022 [employer]. Follow Up Care 01/26/2024 02:30:11 With:Follow up with primary care provider Address:Unknown When:3 to 5 days With:Follow up with primary care provider Address:Unknown When:1 month Physician Emergency department Note * Mauricio Limon MD: MODIFY, PERFORM Event Display: ED Note Physician Authored Date: [id number] MISHA JACKSON :1980 Age:43 years Sex:Female Visit Date:01/26/2024 Primary Care Physician: Hermes Ramirez MD Basic Information Time Seen: Mauricio Limon MD / 01/26/2024 02:51 Chief Complaint pt here earlier for neck and shoulder pain pt says my neck hurts worse than shoulders prehospital took floricet 1 hour ago pt states she did sleep for couple of hours IM site bruised and not as hard History Of Present Illness: 43 years old female with history of chronic pain??history of liver transplant. ??History of chronickidney disease obesity history of chronic migraine headache??history of hypertension. She comes to the emergency room??recurrence for getting pain shot. ??She was seen yesterday for thesame problem??which is chronic pain.?? Requesting??morphine injection. She came back for the same problem.?? Denies fever.?? Denies chest pain or shortness of breath.. Review of Systems: Review of systems negative Physical Exam Vitals & Measurements T:??37?C ??(Oral)?? HR:??70??(Peripheral)?? RR:??20?? BP:??170/102?? SpO2:??99%?? HT:??157??cm?? WT:??83??kg?? BMI:??33.67?? Pain Score:??8?? O2 Therapy:??Room air?? General: [Alert [...] Musculoskeletal: [Normal range of motion and strength, no tenderness or swelling]. Skin: [Skin is warm, dry and pink, no rashes or lesions]. Neurologic: [Awake, alert and oriented X4, CN I-XII intact]. Psychiatric: [Cooperative, appropriate mood and affect]. Medical Decision Making: Patient with chronic pain and hypertension. ??She was given 4 mg of morphine IM??Benadryl and Zofran. ??She feels better. ??Her blood pressure improved. Was discharged home. ??Struck to continue home medication and follow-up in the clinic within 3 to 5days. ??Return to the hospital for worsening symptoms.. 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 diphenhydrAMINE (Benadryl)50 Milligrams Intramuscular (in a [...] 2 times a day. Refills: 11. ?? morphine (morphine 2 mg/mL preservative-free injectable solution)1 Milliliters Intramuscular (in a muscle) once. ?? nicotine (nicotine 21 mg/24 hr transdermal [...] Family History Cancer: Mother. Electronically Signed on 01/26/2024 03:42 MACHINE CLIPPER Mauricio Limon MD Patient Care team information Care Team Personnel Name: Jessee Jones NP Position: Physician Member Role: Nurse Practitioner Address: [address] [place] [address], [address] [place] [address] Name: Latoya Marquez LUMBER CUTTER Position: Physician Member Role: Nurse Practitioner Address: [address] [place] [address]- Name: Leonila Gonzalez LUMBER CUTTER Position: Physician Member Role: Nurse Practitioner Address: [address] [id number]- Name: Beth Brandt LUMBER CUTTER Position: Physician Member Role: Nurse Practitioner Address: [address] [place] [address] [place] [address] Name: Hermes Ramirez MD Position: Physician Member Role: Informed Provider Address: [address] [facility], [address] [place] [address]- Name: Pillo Moe LUMBER CUTTER Position: Physician Member Role: Nurse Practitioner Address: [address] [facility], [address] [facility] Care Team Related Persons Name: STACIA JONES Name: ROBYN JAMA Name: NAIF CHOI Name: MADY CHEN Name: MADY CHEN Insurance Providers Guarantor name: MISHA JACKSON Health Plan Information #: 2 Payer: [employer] AP[employer]OVED Member Number: [id number] Policy Number: Health Plan Information #: 1 Payer: [facility] MEDICAID MGD CARE Member Number: [id number] Policy Number: Health Plan Information #: 3 Payer: MISC Workers Comp Member Number: Policy Number:
--- OUTSIDE RECORDS SUMMARY | 2024-03-20 11:37 | XMS_ITS | Continuity of Care Document ---
Author Organization [facility] Address [address] [place] [address] Care Team Providers Care Palm And Back Forger Name Role Phone Hermes Ramirez Primary Care Physician [phone] Encounter [facility] [id number] Date(s): 04/13/20 - 04/13/[address] [address]- Encounter Diagnosis Edema, unspecified(Final) - Unspecified complication of liver transplant(Final) - Chronic kidney disease, stage 4 (severe)(Final) - Unspecified jaundice(Final) - Discharge Disposition: Home or Self Care Attending Physician: Jessee Jones NP Admitting Physician: Jessee Jones NP Referring Physician: Jessee Jones ROOF SLATER Allergies, Adverse Reactions, Alerts Substance Reaction Severity Status erythromycin Medication interaction Activ e aspirin Medication interaction Activ e Toradol Kidney failure as a complication of care Active Assessment and Plan Future Scheduled Tests Laboratory* COVID-19 Testing Send Out - [facility] 10/25/19 Immunizations Given and Recorded Vaccine Date Status Refusal Reason hepatitis B adult vaccine 11/10/17 Recorded hepatitis B adult vaccine 10/09/17 Recorded hepatitis A adult vaccine 10/09/17 Recorded tetanus/diphth/pertuss (Tdap) adult/adol 05/10/17 Recorded tetanus/diphth/pertuss (Tdap) adult/adol 03/20/17 Recorded tetanus/diphth/pertuss (Tdap) adult/adol 05/25/12 Recorded Medications Lasix 20 mg oral tablet 20 mg = 1 tab, Oral, Daily, # 5 tab, 0 Refill(s), Pharmacy: [id number] Start Date: 04/14/20 Stop Date: 04/19/20 Status: [...] nausea/vomiting, # 20 tab, 0 Refill(s), Pharmacy: [id number] Start Date: 04/28/19 Stop Date: 05/03/19 Status: [...] Results Laboratory List Name Date .Morphology ([facility]) 04/13/20 Amylase Level 04/13/20 Automated Diff 04/13/20 BNP 04/13/20 CBC w/ Diff 04/13/20 Comprehensive Metabolic Panel (CMP) 04/13 Lipase Level 04/13/20 PT/ INR 04/13/20 Most recent to oldest [Reference Range]: 1 WBC [4.0-11.5 K/mcL] 5.0 K/mcL (04/13/20 5:50 PM) RBC [4.20-5.40 x10^6/mcL] 3.21 x10^6/mcL *LOW* (04/13/20 5:50 PM) Neutro Auto 59.3 % *NA* (04/13/20 5:50 PM) Lymph Auto 23.5 % *NA* (04/13/20 5:50 PM) Brule Auto 8.8 % *NA* (04/13/20 5:50 PM) Basophil Auto 0.4 % *NA* (04/13/20 5:50 PM) Prothrombin Time [9.0-11.0 seconds] 13.8 seconds *HI* (04/13/20 5:50 PM) INR 1.4 *NA* (04/13/20 5:50 PM) BUN [7-18 mg/dL] 24 mg/dL *HI* (04/13/20 5:50 PM) Glucose Level [70-110 mg/dL] 91 mg/dL (04/13/20 5:50 PM) Potassium Level [3.5-5.1 mmol/L] 4.0 mmo l/L (04/13/20 5:50 PM) Baso Absolute [0.0-0.1 x10^3/mcL] 0.0 x1 0^3/mcL (04/13/20 5:50 PM) MCV [78.0-100.0 fL] 107.2 fL *HI* (04/13/20 5:50 PM) RBC Morph Reviewed (04/13/20 5:50 PM) AST [15-37 unit/L] 73 unit/L *HI* (04/13/20 5:50 PM) Amylase Level [25-115 unit/L] 27 unit/L (04/13/20 5:50 PM) ALT [12-78 unit/L] 40 unit/L (04/13/20 5:50 PM) MCHC [29.0-37.5 g/dL] 32.8 g/dL (04/13/20 5:50 PM) Sodium Level [136-145 mmol/L] 144 mmol/L (04/13/20 5:50 PM) Lymph Absolute [0.8-5.8 x10^3/mcL] 1.2 x 10^3/mcL (04/13/20 5:50 PM) Hct [36.0-48.0 %] 34.4 % *LOW* (04/13/20 5:50 PM) Lipase Level [73-393 unit/L] 133 unit/L (04/13/20 5:50 PM) Calcium Level [8.5-10.1 mg/dL] 8.3 mg/dL *LOW* (04/13/20 5:50 PM) Brule Absolute [0.1-1.5 x10^3/mcL] 0.4 x1 0^3/mcL (04/13/20 5:50 PM) Albumin Level [3.4-5.0 g/dL] 2.2 g/dL *LOW* (04/13/20 5:50 PM) Protein Total [6.4-8.2 g/dL] 5.6 g/dL *LOW* (04/13/20 5:50 PM) MCH [27.0-34.0 pg] 35.2 pg *HI* (04/13/20 5:50 PM) Neutro Absolute [1.5-8.1 x10^3/mcL] 3.0 x10^3/mcL (04/13/20 5:50 PM) Bilirubin Total [0.0-1.0 mg/dL] 7.9 mg/d L *HI* (04/13/20 5:50 PM) Hgb [12.0-16.0 g/dL] 11.3 g/dL *LOW* (04/13/20 5:50 PM) Alk Phos [46-130 unit/L] 332 unit/L *HI* (04/13/20 5:50 PM) MPV [6.0-10.0 fL] 12.1 fL *HI* (04/13/20 5:50 PM) Platelets [150-450 K/mcL] 71 K/mcL *LOW* (04/13/20 5:50 PM) CO2 [21-32 mmol/L] 30 mmol/L (04/13/20 5:50 PM) Eos Absolute [0.0-0.5 x10^3/mcL] 0.4 x10 ^3/mcL (04/13/20 5:50 PM) Macrocyte 1+ (04/13/20 5:50 PM) eGFR Non-AA 16 *NA* (04/13/20 5:50 PM) eGFR AA 19 *NA* (04/13/20 5:50 PM) BNP [5-100 pg/mL] 871 pg/mL *HI* (04/13/20 5:50 PM) Chloride Level [97-107 mmol/L] 109 mmol/ L *HI* (04/13/20 5:50 PM) RDW-CV [11.5-15.0 %] 14.5 % (04/13/20 5:50 PM) Imm Gran Absolute [0.0-0.1 x10^3/mcL] 0. 0 x10^3/mcL (04/13/20 5:50 PM) Imm Gran Auto 0.4 % *NA* (04/13/20 5:50 PM) NRBC Auto 0.0 % *NA* (04/13/20 5:50 PM) NRBC Absolute [0.0-0.0 x10^3/mcL] 0.0 x1 0^3/mcL (04/13/20 5:50 PM) Creatinine Level [0.60-1.30 mg/dL] 3.42 mg/dL *HI* (04/13/20 5:50 PM) Anion Gap [5-15 mmol/L] 9 mmol/L (04/13/20 5:50 PM) Eos, Auto 7.6 % *NA* (04/13/20 5:50 PM) Social History Social History Type Response Smoking Status 4 or less cigarettes (less than 1/4 pack)/day in last 30 days entered on: 04/08/20 Sex
--- OUTSIDE RECORDS SUMMARY | 2024-03-20 11:38 | XMS_ITS | Continuity of Care Document ---
Author Organization [facility] Address [address] [place] [address] Care Team Providers Care Brake Shoe Rebuilder Name Role Phone Hermes Ramirez Primary Care Physician Encounter [facility] [id number] Date(s): 03/09/24 - 03/09/24 [place] [address] [place] [address]- [place] Encounter Diagnosis Acute migraine(Discharge Diagnosis) - 03/09/24 Discharge Disposition: Home or Self Care Attending Physician: Andrew Francis DO Admitting Physician: Andrew Francis DO Encounter Type: Emergency Allergies, Adverse Reactions, Alerts Substance Criticality Severity [...] Extracted from: Title:ED Provider Note Author:Andrew Francis Date:03/09/24 Assessment/Plan Acute migraine??G43.909 Patient Discharge Condition good Discharge Disposition [...] Daily, # 30 tab, 11 Refill(s), Pharmacy: [place], [place], 157.48, cm, 01/04/23 15:03:00 CDT, Height/Length Dosing, 81.65, kg, 01/04/23 15:03:00 CDT, Weight Dosing Start Date: 01/11/23 Status: Ordered Quantity: 30.0 Unit: tab Repeat number: 12 azaTHIOprine 50 mg oral tablet 0 Refill(s) Start Date: 01/30/24 Status: Ordered Repeat number: 1 Envarsus XR 1 mg oral tablet, extended release 0 Refill(s) Start Date: 01/30/24 Status: Ordered Repeat number: 1 Envarsus XR 4 mg oral tablet, extended release 0 Refill(s) Start Date: 01/30/24 Status: Ordered Repeat number: 1 gabapentin 300 mg oral capsule 600 mg = 2 cap, Oral, BID, # 120 cap, 2 Refill(s), Pharmacy: [id number], 157.5, cm,02/06/24 16:22:00 LEARNING CONSULTANT, Height, 89.91, kg, 02/06/24 16:28:00 LEARNING CONSULTANT, Weight Dosing Start Date: 02/07/24 Status: Ordered Quantity: 120.0 Unit: cap Repeat number: 3 LORazepam 0.5 mg oral tablet TAKE ONE TABLET BY MOUTH DAILY NEEDED FOR ANXIETY Start Date: 12/18/20 Status: Ordered Repeat number: 1 metoprolol succinate 100 mg oral capsule, extended release 100 mg = 1 cap, Oral, BID, # 60 cap, 11 Refill(s), Pharmacy: [place], [place], 157.48, cm, 01/04/23 15:03:00 CDT, Height/Length Dosing, 81.65, kg, 01/04/23 15:03:00 CDT, Weight Dosing Start Date: 01/11/23 Status: Ordered Quantity: 60.0 Unit: cap Repeat number: 12 Mounjaro 2.5 mg/0.5 mL subcutaneous solution 2.5 mg =, Subcutaneous, every week, rotate injection sites, # 4 EA, 0 Refill(s), Pharmacy: [facility], 157.48, cm, 02/12/24 8:34:00 LEARNING CONSULTANT, Height, 91.63, kg, 02/28/24 15:55:00 LEARNING CONSULTANT, Weight Dosing Start Date: 02/28/24 Status: Ordered Quantity: 4.0 Unit: EA Repeat number: 1 nicotine 21 mg/24 hr transdermal film, extended release 1 patches, Transdermal, Daily, # 14 patches, 1 Refill(s), Pharmacy: [id number], 157.48, cm, 01/01/24 14:49:00 CDT, Height, 87.09, kg, 01/01/24 14:53:00 CDT, Weight Dosing Start Date: 01/01/24 Status: Ordered Quantity: 14.0 Unit: patches Repeat number: 2 Indication: Pain in right knee pantoprazole 40 mg oral delayed release tablet 1 tab, Oral, Daily, # 90 tab, 0 Refill(s), [facility]: [id number], 157.48, cm, 06/07/23 16:07:00 CDT, Height, 89.36, kg, 06/19/23 15:32:00 CDT, Weight Dosing Start Date: 06/20/23 Status: Ordered Quantity: 90.0 Unit: tab Repeat number: 1 predniSONE 5 mg oral tablet 5 mg = 1 tab, Oral, Daily, with food or milk, # 30 tab, 0 Refill(s) Start Date: 02/06/24 Status: Ordered Quantity: 30.0 Unit: tab Repeat number: 1 sucralfate 1 g oral tablet 1 tab, Oral, QID, # 360 tab, 0 Refill(s), Pharmacy: [id number], 157.48, cm, 08/29/23 14:22:00 CDT, Height, 88, kg, 08/29/23 14:27:00 CDT, Weight Dosing Start Date: 09/05/23 Status: Ordered Quantity: 360.0 Unit: tab Repeat number: 1 Topamax 25 mg oral tablet 25 mg = 1 tab, Oral, BID, # 60 tab, 2 Refill(s), Pharmacy: [id number], 157.48, cm, 02/12/24 8:34:00 LEARNING CONSULTANT, Height, 91.63, kg, 02/28/24 15:55:00 LEARNING CONSULTANT, Weight Dosing Start Date: 02/28/24 Status: Ordered Quantity: 60.0 Unit: tab Repeat number: 3 Topamax 50 mg oral tablet 50 mg = 1 tab, Oral, BID, # 60 tab, 2 Refill(s), Pharmacy: [id number], 157.48, cm, 02/12/24 8:34:00 LEARNING CONSULTANT, Height, 91.63, kg, 02/28/24 15:55:00 LEARNING CONSULTANT, Weight Dosing Start Date: 02/28/24 Status: Ordered Quantity: 60.0 Unit: tab Repeat number: 3 venlafaxine 37.5 mg oral capsule, extended release 1 cap, Oral, Daily, # 30 cap, 2 Refill(s), Pharmacy: [id number], 157.48, cm, 02/12/24 8:34:00 LEARNING CONSULTANT, Height, 91.63, kg, 02/28/24 15:55:00 LEARNING CONSULTANT, Weight Dosing Start Date: 02/28/24 Status: Ordered Quantity: 30.0 Unit: cap Repeat number: 3 Problem List Condition Confirmation Course Effective Dates [...] Oral [35.8-37.3 Deg C] 36.6 Deg C (03/09/24 10:28 PM) Peripheral Pulse Rate [60-100 bpm] 77 bp m (03/09/24 10:28 PM) Respiratory Rate [12-24 br/min] 18 br/mi n (03/09/24 10:28 PM) Blood Pressure [90-120/60-80 mmHg] 171/9 7mmHg *HI* (03/09/24 10:28 PM) Mean Arterial Pressure, Cuff [65-140 mmH g] 122 mmHg (03/09/24 10:28 PM) Weight 86 kg (03/09/24 10:28 PM) Weight Dosing 86.000 kg (03/09/24 10:28 PM) Height 157 cm (03/09/24 10:28 PM) Body Mass Index 34.89 kg/m2 (03/09/24 10:28 PM) Social History Social History Type Response Tobacco Current everyday tob acco user Tobacco Use:. Sex Sex Representation Female (finding) Hospital Discharge Instructions Patient Education 03/09/2024 22:43:31 Migraine Headache Migraine Headache A migraine headache [...] these instructions at home: Medicines ??? Take fgvb-kps-hwaxjik and prescription medicines only as told by your health care provider. ??? Ask your health care provider if the medicine prescribed to you: ??? Requires you to avoid driving or using heavy machinery. ??? Can cause constipation. You may need to take these actions to prevent or treat constipation: ??? Drink enough fluid to keep your urine pale yellow. ??? Take pbli-xnl-ahaqoli or prescription medicines. ??? Eat foods that [...] provider. Document Revised: 08/18/2022 Document Reviewed: 04/18/2019 [employer] Patient Education ?? 2022 [employer] Follow Up Care 03/09/2024 22:22:03 With:Follow up with primary care provider Address:Unknown When:2 to 4 days Physician Emergency department Note * Andrew Francis DO: MODIFY, PERFORM Event Display: ED Note Physician Authored Date: [id number] MISHA JACKSON :1980 Age:43 years Sex:Female Visit Date:03/09/2024 Primary Care Physician: Hermes Ramirez MD Basic Information Time Seen: Andrew Francis DO / 03/09/2024 22:32 Chief Complaint pt c/o migraine with pain described as paiin and pressure behind eyes. percoset [id number] and tylenol at 1800. History Of Present Illness: c/o??headache states behind her eyes with pressure and some nausea and vomiting Review of Systems: Constitutional:?No??fevers,?No??chills,?No??sweats Eye:?No??recent visual problems ENT:?No??ear pain,?No??nasal congestion,?No??sore throat Respiratory:?No??shortness of breath,?No??cough Cardiovascular:?No??Chest pain,?No??palpitations,?No??syncope Gastrointestinal:?Positive fornausea,?Positive for??vomiting,?No??diarrhea Genitourinary:?No??hematuria Clemente/Lymph:?No??bruising tendency,?No??swollen lymph glands Endocrine:?No??excessive thirst,??No??excessive hunger Musculoskeletal:??No??back pain,??No??neck pain,??No??joint pain,??No??muscle pain,??No??decreased range of motion Integumentary:?No??rash,?No??pruritus,?No??abrasions Neurologic: Alert & oriented X 4 c/o migraine Psychiatric:?No??anxiety,?No??depression Physical Exam Vitals & Measurements T:??36.6?C ??(Oral)?? HR:??77??(Peripheral)?? RR:??18?? BP:??171/97?? SpO2:??100%?? HT:??157??cm?? WT:??86??kg?? BMI:??34.89?? Pain Score:??9?? O2 Therapy:??Room air?? General: Alert and oriented, well nourished, no acute distress. Eye: PERRL, EOMI, normal conjunctiva. photophobia HENT: Normocephalic, clear tympanic membranes, normal hearing, [...] mood and affect. Procedure No Qualifying Data Assessment/Plan Acute migraine??G43.909 Patient Discharge Condition good Discharge Disposition home Patient Education Migraine Headache Follow Up With When Contact Information Follow up with primary care provider Within 2 to 4 days Additional Instructions: Medication Reconciliation Unchanged amLODIPine (amLODIPine 5 mg oral tablet)1 tab Oral (given by mouth) every day. Refills: 11. ?? azaTHIOprine (azaTHIOprine 50 mg oral tablet) ?? gabapentin (gabapentin 300 mg oral capsule)2 Capsules Oral (given by mouth) 2 times a day. Refills:2. ?? LORazepam (LORazepam 0.5 mg oral tablet)TAKE ONE TABLET BY MOUTH DAILY NEEDED FOR ANXIETY. ?? metoprolol (metoprolol succinate 100 mg oral capsule, extended release)1 Capsules Oral (given by mouth) 2 times a day. Refills: 11. ?? nicotine (nicotine 21 mg/24 hr transdermal film, extended release)1 patch(es) Transdermal (apply onthe skin) every day. Refills: 1. ?? pantoprazole (pantoprazole 40 mg oral delayed [...] 4 mg oral tablet, extended release) ?? tirzepatide (Mounjaro 2.5 mg/0.5 mL subcutaneous solution)2.5 Milligrams Subcutaneous (under the skin) every week. rotate injection sites. Refills: 0. ?? topiramate (Topamax 25 mg oral tablet)1 tab Oral (given by mouth) 2 times a day. Refills: 2. ?? topiramate (Topamax 50 mg oral tablet)1 tab Oral (given by mouth) 2 times a day. Refills: 2. ?? venlafaxine (venlafaxine 37.5 mg oral capsule, extended release)1 Capsules Oral (given by mouth) every day. Refills: 2. Problem List/Past Medical History Ongoing Acne Anxiety Breast lump on left side at 3 o'clock position Cervicalgia Chronic back pain Chronic neck pain Chronic pain Chronic pain Chronic paronychia of finger Congenital biliary atresia Constipation Degenerative disc disease, cervical Edema Gout Headache, chronic migraine without aura, intractable Heart murmur History of fall History of kidney transplant History of liver transplant Idiopathic thrombocytopenic purpura Migraine headache Numbness and tingling of right arm Obesity Pain of right scapula Pain, joint, multiple sites PUD (peptic ulcer disease) Pulmonary nodules Right knee pain Right shoulder pain Squamous cell carcinoma in situ Tachycardia Thrombocytopenia Tobacco use Historical Abdominal pain in female Abscess of left thigh Acute dehydration Acute urinary tract infection Bilateral conjunctivitis Boil of groin Chronic kidney disease, stage IV (severe) Conjunctivitis, left eye COVID-19 D-dimer, elevated Dental infection Difficulty sleeping Disease caused by 2019 novel coronavirus Disease caused by 2019 novel coronavirus Ear drainage right Fever Flank pain Foraminal stenosis of cervical region Headache, chronic migraine without aura Headache, migraine, intractable Health education/counseling Hip sprain History of burning pain in leg Hx of migraine headaches Influenza A Intractable chronic migraine without aura Intractable migraine Itching of vulva Knee contusion Lab test positive for detection of COVID-19 virus Liver transplant disorder Low back sprain Lumbar back pain Migraine headache Migraine headache Migraine headache Nausea Otalgia of right ear Otitis externa of right ear Rash Recurrent streptococcal tonsillitis Rhinovirus infection Right otitis externa Right-sided chest wall pain Skin change Sore throat Sprain of knee Upper respiratory infection Urinary tract infection in female UTI (urinary tract infection) Viral upper respiratory infection Weight gain Yellow eyes Procedure/Surgical History ???Mammogram (08/24/2023)???Screening Pap [...] Family History Cancer: Mother. Electronically Signed on 03/09/2024 22:58 LEARNING CONSULTANT Andrew Francis DO Patient Care team information Care Team Personnel Name: Jessee Jones FIBERGLASS TUBE MOLDER Position: Physician Member Role: Nurse Practitioner Address: [address] [place] [address], [address] Telecom: Name: Latoya Marquez FIBERGLASS TUBE MOLDER Position: Physician Member Role: Nurse Practitioner Address: [address] Telecom: Name: Leonila Gonzalez FIBERGLASS TUBE MOLDER Position: Physician Member Role: Nurse Practitioner Address: [address] [place] [address] Telecom: Name: Beth Brandt FIBERGLASS TUBE MOLDER Position: Physician Member Role: Nurse Practitioner Address: [address] [place] [address] Telecom: Name: Hermes Ramirez MD Position: Physician Member Role: Informed Provider Address: [address] [facility] [address] Telecom: Name: Pillo Moe NP Position: Physician Member Role: Nurse Practitioner Address: [address] [facility], [address] [facility] Telecom: Care Team Related Persons Name: STACIA JONES Name: ROBYN JAMA Name: NAIF CHOI Name: MADY CHEN Name: MADY CHEN Insurance Providers Guarantor name: MISHA JACKSON Health Plan Information #: 1 Payer: [facility] MEDICAID [employer] Member Number: [id number] Policy Number: NA Group Number: NA Health Plan Information #: 2 Payer: [facility] MEDICAID [employer] Member Number: [id number] Policy Number: NA Group Number: [id number]
--- OUTSIDE RECORDS SUMMARY | 2024-03-20 11:38 | XMS_ITS | Continuity of Care Document ---
Author Organization [facility] Address [address] [place] [address] Care Team Providers Care Brake Operator Heavy Duty Name Role Phone Hermes Ramirez Primary Care Physician Encounter [facility] [id number] Date(s): 02/07/22 - 02/07/[address] [address] Encounter Diagnosis Intractable migraine(Discharge Diagnosis) - 02/07/22 Discharge Disposition: Home or Self Care Attending Physician: Felicia Roach MD Admitting Physician: Felicia Roach MD Allergies, Adverse Reactions, Alerts Substance Reaction Severity Status codeine Unknown Itching Severe Active gentamicin Moderate Active erythromycin Medication interaction Activ e azithromycin Unknown Severe Active aspirin Medication interaction Severe Activ e Toradol Kidney failure as a complication of care Severe Active NSAIDs Severe Active Functional Status 02/07/22 Other exposure to Infectious Disease Non e [...] wheezing, # 6.7 g, 0 Refill(s), Pharmacy: [facility] [place], [place], 73, cm, 09/13/21 23:53:00 CDT, Height/Length [...] 0 Refill(s) Start Date: 02/07/22 Status: Ordered butalbital/acetaminophen/caffeine 50 mg-300 mg-40 mg oral capsule 1 cap, Oral, every 4 hr, PRN as needed, # 12 cap, 0 Refill(s), Pharmacy: [place], [place], [address], cm, 11/04/21 20:02:00 CDT, Height/Length [...] BID, # 180 tab, 3 Refill(s), Pharmacy: [place], [place], 157, cm, 10/22/20 21:26:00 CDT, Height/Length [...] nausea/vomiting, # 20 tab, 0 Refill(s), Pharmacy: [facility] [place], [place], 157, cm, 09/29/21 23:03:00 CDT, Height/Length [...] 05/13/20 Complet ed Tx - Liver transplantation 2/19/21 Completed delivery Complet ed cyst removal from breast Completed Hernia Completed liver transplant Complete d Vital Signs Most recent to oldest [Reference Range]: 1 Temperature Oral [35.8-37.3 Deg C] 36.7 Deg C (02/07/22 6:34 PM) Peripheral Pulse Rate [60-100 bpm] 108 b pm *HI* (02/07/22 6:34 PM) Respiratory Rate [12-24 br/min] 18 br/mi n (02/07/22 6:34 PM) Blood Pressure [90-140/60-90 mmHg] 148/8 8mmHg *HI* (02/07/22 6:34 PM) Weight 72.57 kg (02/07/22 6:34 PM) Weight Dosing 72.57 kg (02/07/22 6:45 PM) Height 157.480 cm (02/07/22 6:34 PM) Height/Length Dosing 157.480 cm (02/07/22 6:45 PM) Body Mass Index 29.000 kg/m2 (02/07/22 6:34 PM) Social History Social History Type Response Tobacco Current some day tob acco user Tobacco Use:. Sex Hospital Discharge Instructions Patient Education 02/07/2022 18:47:53 Chronic Migraine Headache, Vril-vh-Uzij Chronic Migraine Headache A migraine headache is [...] these instructions at home: Medicines ??? Take kdvi-hlj-pgnyiem and prescription medicines only as told by [...] Headache and Migraine Patients (CHAMP): headachemigraine.org ??? [employer] Migraine Foundation: [email or web address].org ??? National Headache Foundation: [...] Reviewed: 04/22/2020 Else[employer] Patient Education ?? 2021 [employer] Follow Up Care 02/07/2022 18:34:27 With:Follow up with primary care provider Address: When:5 to 7 days Physician Emergency department Note * Felicia Roach MD: PERFORM Event Display: ED Note Physician Authored Date: [id number] MISHA JACKSON :1980 Age:41 years Sex:Female Visit Date:02/07/2022 Primary Care Physician: Hermes Ramirez MD Basic Information Time Seen: Felicia Roach MD / 02/07/2022 18:36 Chief Complaint Pt arrives to ED with c/o headache on the right side. Took Fioricet at 1600. States has appt with Neuro in February. History Of Present Illness: Frequents the ER with recurrent migraine almost 2-3 times a week.?? Past medical history significant for liver transplant twice??secondary to??congenital hepatic cirrhosis as well as renal transplantdue to stage IV chronic kidney disease.?? He is a heavy tobacco smoker.?? Chronic thrombocytopenia chronic pain syndrome??and chronic intractable migraines. ??She also has chronic ear infections??status post bilateral tympanostomy is under the care of ENT.?? Chronic neck pain and she just had an MRI of her neck last week.?? She is going to see a neurosurgeon. ??No new complaints Review of Systems: Constitutional:?No??fevers,?No??chills,?No??sweats Eye:?No??recent visual problems ENT:?No??ear pain,?No??nasal congestion,?No??sore throat Respiratory:?No??shortness of breath,?No??cough Cardiovascular:?No??Chest pain,?No??palpitations,?No??syncope Gastrointestinal:?Nonausea,?No??vomiting,?No??diarrhea Genitourinary:?No??hematuria Clemente/Lymph:?No??bruising tendency,?No??swollen lymph glands Endocrine:?No??excessive thirst,??No??excessive hunger Musculoskeletal:??No??back pain,??No??neck pain,??No??joint pain,??No??muscle pain,??No??decreased range of motion Integumentary:?No??rash,?No??pruritus,?No??abrasions Neurologic: Alert & oriented X 4 Psychiatric:?No??anxiety,?No??depression Physical Exam Vitals & Measurements T:??36.7?C ??(Oral)?? HR:??108??(Peripheral)?? RR:??18?? BP:??148/88?? SpO2:??99%?? HT:??157.480??cm?? WT:??72.57??kg?? BMI:??29.000?? Pain Score:??8?? O2 Therapy:??Room air?? General: Alert and oriented, well nourished,?No??acute distress. ??Blood pressure better 119/70 Eye: PERRL, EOMI,?Normal??conjunctiva HENT: Normocephalic, clear tympanic [...] and affect Procedure No Qualifying Data Assessment/Plan 1.??Intractable migraine??G43.919 See your PCP or neurologist Orders: Benadryl, 50 mg = 1 mL, IM, Injection, Once, First Dose: 02/07/22 18:37:00 PORTFOLIO ASSISTANT, Stop Date: 02/07/2218:37:00 PORTFOLIO ASSISTANT, Physician Stop Benadryl, 50 mg = 1 mL, IM, Once, 0 Refill(s) morphine, 2 mg = 0.5 mL, IM, Injection, Once, First Dose: 02/07/22 18:36:00 PORTFOLIO ASSISTANT, Stop Date: 02/07/22 18:36:00 PORTFOLIO ASSISTANT, Physician Stop morphine 4 mg/mL preservative-free injectable solution, 2 mg = 0.5 mL, IM, Once, 0 Refill(s) Phenergan, 25 mg = 1 mL, IM, Injection, Once, First Dose: 02/07/22 18:36:00 PORTFOLIO ASSISTANT, Stop Date: 02/07/22 18:36:00 PORTFOLIO ASSISTANT, Physician Stop Phenergan, 25 mg = 1 mL, IM, Once, 0 Refill(s) Patient Discharge Condition Stable Discharge Disposition Discharge to home Patient Education Chronic Migraine Headache, Xxcq-iw-Ocog Follow Up With When Contact Information Follow up with primary care provider Within 5 to 7 days Additional Instructions: Medication Reconciliation New Prescription diphenhydrAMINE (Benadryl)50 Milligrams Intramuscular (in a muscle) once. ?? morphine (morphine 4 mg/mL preservative-free injectable solution)0.5 Milliliters Intramuscular (in a muscle) once. ?? Changed promethazine (Phenergan 25 mg oral tablet)1 tab [...] Oral (given by mouth) every day. ?? butalbital/acetaminophen/caffeine (butalbital/acetaminophen/caffeine 50 mg-300 mg-40 mg [...] 2 times a day. Refills: 3. ?? tacrolimus (tacrolimus 1 mg oral capsule, [...] Use: Never. Substance Use Never Tobacco Current some day tobacco user Tobacco Use:. Family History Cancer: Mother. Attending Attestation Stable Electronically Signed on 02/07/22 06:48 PM Felicia Roach MD Patient Care team information Personnel Name: Hermes Ramirez MD Address: [facility] [address]
--- OUTSIDE RECORDS SUMMARY | 2024-03-20 11:38 | XMS_ITS | Continuity of Care Document ---
Author Organization Counts include 234 beds at the [facility] Address [address] [place] [address] Care Team Providers Care Auto Tester Name Role Phone Hermes Ramirez Primary Care Physician Encounter ONOFRE MARILUZ [id number] Date(s): 01/27/23 - 01/27/[address] [address]- [place] Encounter Diagnosis Polymyalgia(Discharge Diagnosis) - 01/27/23 Headache(Discharge Diagnosis) - 01/27/23 Discharge Disposition: Home or Self Care Attending [...] Daily, # 30 tab, 11 Refill(s), Pharmacy: [place], [place], 157.48, cm, 01/04/23 15:03:00 CDT, Height/Length [...] BID, # 60 cap, 11 Refill(s), Pharmacy: [place], [place], 157.48, cm, 01/04/23 15:03:00 CDT, Height/Length [...] 1normal 2normal Results Laboratory List Name Date CBC w/ Diff 01/27/23 Comprehensive Metabolic Panel (CMP) 01/18 Urinalysis with Culture if Indicated 01/09 .Urine Volume 01/27/23 Automated Diff 01/27/23 Urinalysis Microscopic 01/27/23 Most recent to oldest [Reference Range]: 1 WBC [4.0-11.5 K/mcL] 6.4 K/mcL (01/27/23 1:03 AM) RBC [4.20-5.40 x10^6/mcL] 4.00 x10^6/mcL *LOW* (01/27/23 1:03 AM) Neutro Auto 78.6 % *NA* (01/27/23 1:03 AM) Lymph Auto 11.6 % *NA* (01/27/23 1:03 AM) [place] Auto 7.5 % *NA* (01/27/23 1:03 AM) Basophil Auto 0.2 % *NA* (01/27/23 1:03 AM) BUN [7-18 mg/dL] 22 mg/dL *HI* (01/27/23 1:03 AM) UA Color Yellow (01/27/23 1:03 AM) UA WBC [0-5] None (01/27/23 1:03 AM) Glucose Level [70-110 mg/dL] 109 mg/dL (01/27/23 1:03 AM) Potassium Level [3.5-5.1 mmol/L] 3.4 mmo l/L *LOW* (01/27/23 1:03 AM) Baso Absolute [0.0-0.1 x10^3/mcL] 0.0 x1 0^3/mcL (01/27/23 1:03 AM) MCV [78.0-100.0 fL] 100.0 fL (01/27/23 1:03 AM) UA Urobilinogen [Normal mg/dL] Normal mg /dL (01/27/23 1:03 AM) UA Bili [Negative mg/dL] Negative mg/dL (01/27/23 1:03 AM) UA Ketones [Negative mg/dL] Negative mg/ dL (01/27/23 1:03 AM) AST [15-37 unit/L] 58 unit/L *HI* (01/27/23 1:03 AM) ALT [12-78 unit/L] 91 unit/L *HI* (01/27/23 1:03 AM) MCHC [29.0-37.5 g/dL] 33.8 g/dL (01/27/23 1:03 AM) Sodium Level [136-145 mmol/L] 140 mmol/L (01/27/23 1:03 AM) UA RBC [0-3] None (01/27/23 1:03 AM) UA Leuk Est [Negative Guille/mcL] Negative Guille/mcL (01/27/23 1:03 AM) Lymph Absolute [0.8-5.8 x10^3/mcL] 0.7 x 10^3/mcL *LOW* (01/27/23 1:03 AM) UA Nitrite [Negative] Negative (01/27/23:03 AM) UA Glucose [Normal mg/dL] Normal mg/dL (01/27/23 1:03 AM) Hct [36.0-48.0 %] 40.0 % (01/27/23 1:03 AM) UA Bacteria [None Seen] None Seen (01/27/23 1:03 AM) Calcium Level [8.5-10.1 mg/dL] 9.1 mg/dL (01/27/23 1:03 AM) [place] Absolute [0.1-1.5 x10^3/mcL] 0.5 x1 0^3/mcL (01/27/23 1:03 AM) Albumin Level [3.4-5.0 g/dL] 3.0 g/dL *LOW* (01/27/23 1:03 AM) Protein Total [6.4-8.2 g/dL] 6.9 g/dL (01/27/23 1:03 AM) UA Protein [Negative mg/dL] Negative mg/ dL (01/27/23 1:03 AM) MCH [27.0-34.0 pg] 33.8 pg (01/27/23 1:03 AM) Neutro Absolute [1.5-8.1 x10^3/mcL] 5.0 x10^3/mcL (01/27/23 1:03 AM) Bilirubin Total [0.0-1.0 mg/dL] 0.9 mg/d L (01/27/23 1:03 AM) Hgb [12.0-16.0 g/dL] 13.5 g/dL (01/27/23 1:03 AM) Alk Phos [46-130 unit/L] 261 unit/L *HI* (01/27/23 1:03 AM) UA Blood [Negative Rocael/mcL] Negative Rocael /mcL (01/27/23 1:03 AM) MPV [6.0-10.0 fL] 10.5 fL *HI* (01/27/23 1:03 AM) UA Mucous [None Seen] None Seen (01/27/23 1:03 AM) UA Spec Grav 1.005 (01/27/23 1:03 AM) Platelets [150-450 K/mcL] 108 K/mcL *LOW* (01/27/23 1:03 AM) CO2 [21-32 mmol/L] 29 mmol/L (01/27/23 1:03 AM) Eos Absolute [0.0-0.5 x10^3/mcL] 0.1 x10 ^3/mcL (01/27/23 1:03 AM) UA Squam Epithelial [None Seen] Few (01/27/23 1:03 AM) UA pH [5.0-9.0] 7.0 (01/27/23 1:03 AM) eGFR Non-AA 35 *NA* (01/27/23 1:03 AM) eGFR AA 43 *NA* (01/27/23 1:03 AM) UA Appear [Clear] Clear (01/27/23 1:03 AM) Chloride Level [97-107 mmol/L] 107 mmol/ L (01/27/23 1:03 AM) RDW-CV [11.5-15.0 %] 12.1 % (01/27/23 1:03 AM) Imm Gran Absolute [0.0-0.1 x10^3/mcL] 0. 0 x10^3/mcL (01/27/23 1:03 AM) Imm Gran Auto 0.5 % *NA* (01/27/23 1:03 AM) NRBC Auto 0.0 % *NA* (01/27/23 1:03 AM) NRBC Absolute [0.0-0.0 x10^3/mcL] 0.0 x1 0^3/mcL (01/27/23 1:03 AM) Slide Review Not Indicated (01/27/23 1:03 AM) UA Culture Ind?. Not Indicated (01/27/23 1:03 AM) Urine Srce Clean Catch (01/27/23 1:03 AM) Urine Volume 12 mL (01/27/23 1:03 AM) Creatinine Level [0.60-1.30 mg/dL] 1.71 mg/dL 1 *HI* (01/27/23 1:03 AM) Anion Gap [5-15 mmol/L] 7 mmol/L (01/27/23 1:03 AM) Eos, Auto 1.6 % *NA* (01/27/23 1: AM) UA Yeast [None Seen] None Seen (01/27/23 1:03 AM) 1Interpretive Data: Association of GFR and [...] Oral [35.8-37.3 Deg C] 36.8 Deg C (01/27/23 12:09 AM) Peripheral Pulse Rate [60-100 bpm] 82 bp m (01/27/23 12:09 AM) Respiratory Rate [12-24 br/min] 20 br/mi n (01/27/23 12:09 AM) Blood Pressure [90-140/60-90 mmHg] 158/9 3mmHg *HI* (01/27/23 12:09 AM) Mean Arterial Pressure, Cuff [70-110 mmHg] 115 mmHg *HI* (01/27/23 12:09 AM) Weight 84.00 kg (01/27/23 12:09 AM) Weight Dosing 84.00 kg (01/27/23 12:34 AM) Height 157.000 cm (01/27/23 12:34 AM) 157.000 cm (01/27/23 12:09 AM) Body Mass Index 34.000 kg/m2 (01/27/23 12:09 AM) Social History Social History Type Response Tobacco Current everyday tob acco user Tobacco Use:. Sex Hospital Discharge Instructions Patient Education 01/27/2023 02:16:46 Migraine Headache, [facility] Migraine Headache A migraine headache is a [...] these instructions at home: Medicines ??? Take seym-hap-yjrdejm and prescription medicines only as told by your doctor. ??? Ask your doctor if the medicine prescribed to you: ??? Requires you to avoid driving or using heavy machinery. ??? Can cause trouble pooping (constipation). You may need to take these steps to prevent or treat trouble pooping: ??? Drink enough fluid to keep your pee (urine) pale yellow. ??? Take yora-uvi-vnrrzma or prescription medicines. ??? Eat foods that [...] provider. Document Revised: 06/28/2019 Document Reviewed: 04/18/2019 [employer] Patient Education ?? 2022 [employer]. Follow Up Care 01/27/2023 00:09:13 With:Hermes Ramirez MD Address: [address] [place] [address] [place] [address]- When:3 to 5 days Physician Emergency department Note * Maryam Cortés MD: PERFORM Event Display: ED Note Physician Authored Date: MISHA JACKSON :1980 Age:42 years Sex:Female Visit Date:01/27/2023 Primary Care Physician: Hermes Ramirez MD Basic Information Time Seen: Maryam Cortés MD / 01/27/2023 00:42 Chief Complaint 4TH visit to ED in 10 days pt states woke u at 0300 with vomiting and had diarrhea headache and achy took tylenol times 1 states I can only have so much and no antidiarrhials taken pt states no appetite and asks next to use restroom because she has to pee History Of Present Illness: Patient presents to ED with a complaint of having headaches since yesterday. Headache is RT sided, throbbing, severe, and continuous, rated 8/10. She also has generalized body aches and pains. She has nausea, vomited x 5. Also has diarrhea with soft stools, no blood or mucus. She has no urinary symptoms. No fever. She has a PMH of liver transplant. Review of Systems: Constitutional:?No??fevers,?No??chills,?No??sweats Eye:?No??recent visual problems ENT:?No??ear pain,?No??nasal congestion,?No??sore throat Respiratory:?No??shortness of breath,?No??cough Cardiovascular:?No??Chest pain,?No??palpitations,?No??syncope Gastrointestinal:?Positive fornausea,?Positive for??vomiting,?Positive for??diarrhea Genitourinary:?No??hematuria Clemente/Lymph:?No??bruising tendency,?No??swollen lymph glands Endocrine:?No??excessive thirst,??No??excessive hunger Musculoskeletal:??No??back pain,??No??neck pain,??No??joint pain,??No??muscle pain,??No??decreased range of motion Integumentary:?No??rash,?No??pruritus,?No??abrasions Neurologic: Alert & oriented X 4 Psychiatric:?No??anxiety,?No??depression Physical Exam Vitals & Measurements T:??36.8?C ??(Oral)?? HR:??82??(Peripheral)?? RR:??20?? BP:??158/93?? SpO2:??100%?? HT:??157.000??cm?? WT:??84.00??kg?? BMI:??34.000?? Pain Score:??6?? O2 Therapy:??Room air?? General: Alert and oriented, well nourished,??uncomfortable due to pain??No??acute distress Eye: PERRL, EOMI,?Normal?conjunctiva HENT: Normocephalic, clear tympanic membranes,?Normal? hearing, moist oral mucosa,?No??scleral icterus,?No??sinus tenderness Neck: Supple, non-tender,?No??carotid bruits,?No??JVD,?No??lymphadenopathy Lungs:??Clear to auscultation?? Respiration:??Non-Labored Heart:?Normal? rate,?Regular??rhythm,?No??murmur,?No??gallop,?No??edema Abdomen: Soft, non-tender, non-distended,?Normal? bowel sounds,?No??masses Musculoskeletal:?Normal? range of motion and strength,?No??tenderness,?No??swelling Skin: Skin is warm, dry and pink,?No??rashes,?No??lesions Neurologic: Awake, alert and oriented X4, CN II-XII intact Psychiatric: Cooperative, appropriate mood and affect Medical Decision Making: CBC - WBC 6.4, Hgb 13.5, PLT 108. CMP - Na 140, K 3.4, BUN 22, Cr 1.7, GFR 35 UA - Negative ?? 0146 - Headache/body aches unchanged. ?? 0210 - Feeling much better. To be discharged home. Procedure No Qualifying Data Assessment/Plan 1.??Headache??G43.009 2.??Polymyalgia??M35.3 Orders: Discharge Patient, 01/27/23 2:17:00 GAS STATION CASHIER Saline Lock Insert, 01/27/23 0:43:00 GAS STATION CASHIER, Once, Stop date 01/27/23 0:43:00 GAS STATION CASHIER Patient Discharge Condition Improved. Discharge Disposition Home. Patient Education Migraine Headache, Htqg-[id number] Follow Up With When Contact Information Hermes Ramirez MD Within 3 to [address] [place] [address] [address] [place] [address]- Additional Instructions: Medication Reconciliation Unchanged amLODIPine (amLODIPine [...] removal from east???[place]???liver transplant Medication Administration Given Benadryl, 25 mg, Slow IV Push morphine, 2 mg, Slow IV Push morphine, 4 mg, Slow IV Push NS bolus, 1000 mL, IV Bolus pantoprazole, IV Piggyback Allergies NSAIDs Toradol??(Kidney failure as a complication of care) aspirin??(Medication interaction) azithromycin??(Unknown) codeine??(Unknown, Itching) gentamicin erythromycin??(Medication interaction) Social History Alcohol Never Electronic Cigarette/Vaping Electronic Cigarette Use: Never. Substance Use Never Tobacco Current everyday tobacco user Tobacco Use:.- Comments: Pt states that she smokes half a pack a day. Family History Cancer: Mother. Lab Results CBC and Differential?? LATEST RESULTS?? HISTORICAL RESULTS?? WBC?? 01/27/23 01:03?? 6.4?? 01/09/23?? 7.1?? RBC?? 01/27/23 01:03?? 4.00 ??Low?? 01/09/23?? 4.28?? Hgb?? 01/27/23 01:03?? 13.5?? 01/09/23?? 14.2?? Hct?? 01/27/23 01:03?? 40.0?? 01/09/23?? 42.6?? MCV?? 01/27/23 01:03?? 100.0?? 01/09/23?? 99.5?? MCH?? 01/27/23 01:03?? 33.8?? 01/09/23?? 33.2?? MCHC?? 01/27/23 01:03?? 33.8?? 01/09/23?? 33.3?? RDW-CV?? 01/27/23 01:03?? 12.1?? 01/09/23?? 13.0?? Platelets?? 01/27/23 01:03?? 108 ??Low?? 01/09/23?? 147 ??Low?? MPV?? 01/27/23 01:03?? 10.5 ??High?? 01/09/23?? 10.7 ??High?? Neutro Auto?? 01/27/23 01:03?? 78.6?? 01/09/23?? 67.5?? Lymph Auto?? 01/27/23 01:03?? 11.6?? 01/09/23?? 20.4?? [place] Auto?? 01/27/23 01:03?? 7.5?? 01/09/23?? 8.2?? Eos, Auto?? 01/27/23 01:03?? 1.6?? 01/09/23?? 3.5?? Basophil Auto?? 01/27/23 01:03?? 0.2?? 01/09/23?? 0.1?? Imm Gran Auto?? 01/27/23 01:03?? 0.5?? 01/09/23?? 0.3?? NRBC Auto?? 01/27/23 01:03?? 0.0?? 01/09/23?? 0.0?? Neutro Absolute?? 01/27/23 01:03?? 5.0?? 01/09/23?? 4.8?? Lymph Absolute?? 01/27/23 01:03?? 0.7 ??Low?? 01/09/23?? 1.4?? [place] Absolute?? 01/27/23 01:03?? 0.5?? 01/09/23?? 0.6?? Eos Absolute?? 01/27/23 01:03?? 0.1?? 01/09/23?? 0.3?? Baso Absolute?? 01/27/23 01:03?? 0.0?? 01/09/23?? 0.0?? Imm Gran Absolute?? 01/27/23 01:03?? 0.0?? 01/09/23?? 0.0?? NRBC Absolute?? 01/27/23 01:03?? 0.0?? 01/09/23?? 0.0?? Slide Review?? 01/27/23 01:03?? Not Indicated?? 01/09/23?? Not Indicated? Routine Chemistry?? LATEST RESULTS?? HISTORICAL RESULTS?? Sodium Level?? 01/27/23 01:03?? 140?? 01/09/23?? 139?? Potassium Level?? 01/27/23 01:03?? 3.4 ??Low?? 01/09/23?? 4.1?? Chloride Level?? 01/27/23 01:03?? 107?? 01/09/23?? 105?? CO2?? 01/27/23 01:03?? 29?? 01/09/23?? 22?? Alk Phos?? 01/27/23 01:03?? 261 ??High?? 01/09/23?? 243 ??High?? AST?? 01/27/23 01:03?? 58 ??High?? 01/09/23?? 25?? ALT?? 01/27/23 01:03?? 91 ??High?? 01/09/23?? 33?? BUN?? 01/27/23 01:03?? 22 ??High?? 01/09/23?? 24 ??High?? Glucose Level?? 01/27/23 01:03?? 109?? 01/09/23?? 95?? Creatinine Level?? 01/27/23 01:03?? 1.71 ??High?? 01/09/23?? 1.45 ??High?? eGFR AA?? 01/27/23 01:03?? 43?? 01/09/23?? 51?? eGFR Non-AA?? 01/27/23 01:03?? 35?? 01/09/23?? 43?? Calcium Level?? 01/27/23 01:03?? 9.1?? 01/09/23?? 8.8?? Protein Total?? 01/27/23 01:03?? 6.9?? 01/09/23?? 7.3?? Albumin Level?? 01/27/23 01:03?? 3.0 ??Low?? 01/09/23?? 3.5?? Bilirubin Total?? 01/27/23 01:03?? 0.9?? 01/09/23?? 0.6?? Anion Gap?? 01/27/23 01:03?? 7?? 01/09/23?? 16 ??High? UA Macroscopic?? LATEST RESULTS?? HISTORICAL RESULTS?? Urine Srce?? 01/27/23 01:03?? Clean Catch?? 10/31/22?? Clean Catch?? Urine Volume?? 01/27/23 01:03?? 12?? 10/31/22?? 12?? UA Color?? 01/27/23 01:03?? Yellow?? 10/31/22?? Yellow?? UA Appear?? 01/27/23 01:03?? Clear?? 10/31/22?? Hazy?? UA Glucose?? 01/27/23 01:03?? Normal?? 10/31/22?? Normal?? UA Bili?? 01/27/23 01:03?? Negative?? 10/31/22?? Negative?? UA Ketones?? 01/27/23 01:03?? Negative?? 10/31/22?? Negative?? UA Spec Grav?? 01/27/23 01:03?? 1.005?? 10/31/22?? 1.010?? UA Blood?? 01/27/23 01:03?? Negative?? 10/31/22?? Negative?? UA pH?? 01/27/23 01:03?? 7.0?? 10/31/22?? 6.0?? UA Protein?? 01/27/23 01:03?? Negative?? 10/31/22?? Negative?? UA Urobilinogen?? 01/27/23 01:03?? Normal?? 10/31/22?? Normal?? UA Nitrite?? 01/27/23 01:03?? Negative?? 10/31/22?? Negative?? UA Leuk Est?? 01/27/23 01:03?? Negative?? 10/31/22?? Negative?? UA Culture Ind?.?? 01/27/23 01:03?? Not Indicated?? 10/31/22?? N/A? UA Microscopic?? LATEST RESULTS?? HISTORICAL RESULTS?? UA WBC?? 01/27/23 01:03?? None?? 10/31/22?? 0-5?? UA RBC?? 01/27/23 01:03?? None?? 10/31/22?? 0-3?? UA Squam Epithelial?? 01/27/23 01:03?? Few?? 10/31/22?? Many Abnormal?? UA Yeast?? 01/27/23 01:03?? None Seen?? 10/31/22?? None Seen?? UA Mucous?? 01/27/23 01:03?? None Seen?? 10/31/22?? Many Abnormal?? UA Bacteria?? 01/27/23 01:03?? None Seen?? 10/31/22?? Many Abnormal? Electronically Signed on 01/27/23 02:19 AM Maryam Cortés MD Patient Care team information Care Team Personnel Name: Jessee Jones [employer] [employer] Position: Physician Member Role: Nurse Practitioner Address: Address: [address] [place] [address], [address] [place] [address]- Name: Latoya Marquez CLINICAL ASSOC Position: Physician Member Role: Nurse Practitioner Address: Address: [address] [place] [address]- Name: Leonila Gonzalez [facility]ICAL [facility]OC Position: Physician Member Role: Nurse Practitioner Address: Address: [address] [place] [address]- Name: Beth Brandt [facility] Position: Physician Member Role: Nurse Practitioner Address: Address: [address] [place] [address] Name: Hermes Ramirez MD Position: Physician Member Role: Primary Care Physician Address: Address: [address] [place] [address], [address] [place] [address]- Name: Anamika Gore MD Position: Physician - Women's Health Member Role: Informed Provider Name: Pillo Moe [facility] Position: Physician Member Role: Nurse Practitioner Address: Address: [address] [place] [address], [address] [place] Name: Maryam Cortés MD Position: Physician Member Role: ED Physician Address: Address: [address] [place] [address] [place] [address]- Name: Tori Villalpando RN Position: Nurse Member Role: Registered Nurse Care Team Related Persons Name: STACIA JONES Address: Home [address] [place], [place] [id number] Name: ROBYN JAMA
--- OUTSIDE RECORDS SUMMARY | 2024-03-20 11:38 | XMS_ITS | Continuity of Care Document ---
Author Organization [facility] Address [address] [place] [address] Care Team Providers Care Orange Picker Machine Operator Name Role Phone Hermes Ramirez Primary Care Physician Encounter ONOFRE MCGRAW [id number] Date(s): 12/06/22 - 12/06/22 [place] [address] [place] [address]- [place] Discharge Disposition: Home or Self Care Attending Physician: Beth Brandt SECONDARY SOCIAL STUDIES TEACHER Admitting Physician: Beth Brandt SECONDARY SOCIAL STUDIES TEACHER Allergies, Adverse Reactions, Alerts Substance Reaction Severity Status codeine Unknown Itching Severe Active gentamicin Moderate Active erythromycin Medication interaction Activ e azithromycin Unknown Severe Active aspirin Medication interaction Severe Activ e Toradol Kidney failure as a complication of care Severe Active NSAIDs Severe Active Assessment and Plan Future Appointments Diagnostic Tests Pending * Throat Culture 12/06/22 Future Scheduled Tests Laboratory* Giardia lamblia Ag, [...] Daily, # 30 tab, 0 Refill(s), Pharmacy: [place], [place], 157, cm, 09/10/22 15:23:00 CDT, Height/Length [...] BID, # 60 cap, 0 Refill(s), Pharmacy: [place], [place], 157, cm, 09/10/22 15:23:00 CDT, Height/Length [...] information Care Team Personnel Name: Jessee Jones SECONDARY SOCIAL STUDIES TEACHER Position: Physician Member Role: Nurse Practitioner Address: Address: [address] [facility], [address] [place] [address]- Name: Latoya Marquez SECONDARY SOCIAL STUDIES TEACHER Position: Physician Member Role: Nurse Practitioner Address: Address: [address] [place] [address]- Name: Leonila Gonzalez SECONDARY SOCIAL STUDIES TEACHER Position: Physician Member Role: Nurse Practitioner Address: Address: [address] [place] [address]- Name: Beth Brandt SECONDARY SOCIAL STUDIES TEACHER Position: Physician Member Role: Nurse Practitioner Address: Address: [address] Name: Hermes Ramirez MD Position: Physician Member Role: Informed Provider Address: Address: [address] [facility], [address] [place] [address]- Name: Pillo Moe SECONDARY SOCIAL STUDIES TEACHER Position: Physician Member Role: Nurse Practitioner Address: Address: [address] [facility], [address] [facility] Care Team Related Persons Name: STACIA JONES Address: Home [address] [place], [place] [id number] Name: ROBYN JAMA
--- OUTSIDE RECORDS SUMMARY | 2024-03-20 11:38 | XMS_ITS | Continuity of Care Document ---
Author Organization [facility] Address [address] [place] [address] Care Team Providers Care Sheet Metal Worker Maintenance Name Role Phone Ashley Hermes H Primary Care Physician Encounter BUCKNER MARILUZ [id number] Date(s): 10/08/23 - 10/08/[address] [address] [place] Encounter Diagnosis Acute low back pain(Discharge Diagnosis) - 10/08/23 Chronic lower back pain(Discharge Diagnosis) - 10/08/23 Other chronic pain(Discharge Diagnosis) - 10/08/23 History of liver transplant(Discharge Diagnosis) - 10/08/23 History of kidney transplant(Discharge Diagnosis) - 10/08/23 Discharge Disposition: Home or Self Care Attending [...] and Plan Extracted from: Title:ED Provider Note Author:Percy Salazar MD D ate:10/08/23 Acute low back pain??M54.50, ??Chronic lower back pain??M54.50 History of kidney transplant??Z94.0 History of liver transplant??Z94.4 Other chronic pain??G89.29 Stable The patient was discharged home in stable condition. Future Appointments Future Scheduled Tests Radiology* MG [...] Daily, # 30 tab, 11 Refill(s), Pharmacy: [place], [place], 157.48, cm, 01/04/23 15:03:00 CDT, Height/Length [...] cap, 2 Refill(s), [id number], 157.48, cm, 07/23/23 17:59:00 CDT, Height, 88.45, [...] BID, # 60 cap, 11 Refill(s), Pharmacy: [place], [place], 157.48, cm, 01/04/23 15:03:00 CDT, Height/Length Dosing, 81.65, kg, 01/04/23 15:03:00 CDT, Weight Dosing Start Date: 01/11/23 Status: Ordered Nicotrol Inhaler 10 mg inhalation device See Instructions, 6-16 cartriges/day, # 1 EA, 2 Refill(s), [id number], 157.48, cm, 08/29/23 14:22:00 CDT, Height, 88, kg, 08/29/23 14:27:00 CDT, Weight Dosing Start Date: 08/29/23 Status: Ordered pantoprazole 40 mg oral delayed release tablet 1 tab, Oral, Daily, # 90 tab, 0 Refill(s), [facility]: [id number], 157.48, cm, 06/07/23 16:07:00 CDT, Height, 89.36, [...] QID, # 360 tab, 0 Refill(s), [facility]: [id number], 157.48, cm, 08/29/23 14:22:00 CDT, Height, 88, kg, 08/29/23 14:27:00 CDT, Weight Dosing Start Date: 09/05/23 Status: Ordered venlafaxine 37.5 mg oral capsule, extended release 37.5 mg = 1 cap, Oral, Daily, # 90 cap, 0 Refill(s), [facility], 157.48, cm, 08/29/23 14:22:00 CDT, Height, [...] Oral [35.8-37.3 Deg C] 36.8 Deg C (10/08/23 4:53 AM) Peripheral Pulse Rate [60-100 bpm] 73 bp m (10/08/23 4:53 AM) Respiratory Rate [12-24 br/min] 18 br/mi n (10/08/23 4:53 AM) Blood Pressure [90-140/60-90 mmHg] 149/9 1mmHg *HI* (10/08/23 4:53 AM) Mean Arterial Pressure, Cuff [65-140 mmH g] 110 mmHg (10/08/23 4:53 AM) Weight Estimated 81.6 kg (10/08/23 4:53 AM) Body Mass Index Estimated 33.1 kg/m2 (10/08/23 4:53 AM) Height/Length Estimated 157 cm (10/08/23 4:53 AM) Social History Social History Type Response Tobacco Current everyday tob acco user Tobacco Use:. Sex Hospital Discharge Instructions Patient Education 10/08/2023 05:13:49 Back Exercises, Fryq-ih-Sdxk Back Exercises These exercises help to make your trunk and back strong. They also help to keep the lower back flexible. Doing these exercises can help to prevent or lessen pain in your lower back. ??? If you have back pain, try to do these exercises 2???3 times each day or as told by your doctor. ??? As you get better, do the exercises once each day. Repeat the exercises more often as told by your doctor. ??? To stop back pain from coming back, do the exercises once each day, or as told by your doctor. Do exercises exactly as told by your doctor. Stop right away if you feel sudden pain or your pain gets worse. Exercises Single knee to chest Do these steps 3???5 times in a row for each le. Lie on your back on a firm bed or the floor with your legs stretched out. 2. Bring one knee to your chest. 3. Grab your knee or thigh with both hands and hold it in place. 4. Pull on your knee until you feel a gentle stretch in your lower back or butt. 5. Keep doing the stretch for 10???30 seconds. 6. Slowly let go of your leg and straighten it. Pelvic tilt Do these steps 5???10 times in a row: 1. Lie on your back on a firm bed or the floor with your legs stretched out. 2. Bend your knees so they point up to the ceiling. Your feet should be flat on the floor. 3. Tighten your lower belly (abdomen) muscles to press your lower back against the floor. This willmake your tailbone point up to the ceiling instead of pointing down to your feet or the floor. 4. Stay in this position for 5???10 seconds while you gently tighten your muscles and breathe evenly. Cat???cow Do these steps until your lower back bends more easily: 1. Get on your hands and knees on a firm bed or the floor. Keep your hands under your shoulders, and keep your knees under your hips. You may put padding under your knees. 2. Let your head hang down toward your chest. Tighten (contract) the muscles in your belly. Point your tailbone toward the floor so your lower back becomes rounded like the back of a cat. 3. Stay in this position for 5 seconds. 4. Slowly lift your head. Let the muscles of your belly relax. Point your tailbone up toward the ceiling so your back forms a sagging arch like the back of a cow. 5. Stay in this position for 5 seconds. Press-ups Do these steps 5???10 times in a row: 1. Lie on your belly (face-down) on a firm bed or the floor. 2. Place your hands near your head, about shoulder-width apart. 3. While you keep your back relaxed and keep your hips on the floor, slowly straighten your arms toraise the top half of your body and lift your shoulders. Do not use your back muscles. You may change where you place your hands to make yourself more comfortable. 4. Stay in this position for 5 seconds. Keep your back relaxed. 5. Slowly return to lying flat on the floor. Bridges Do these steps 10 times in a row: 1. Lie on your back on a firm bed or the floor. 2. Bend your knees so they point up to the ceiling. Your feet should be flat on the floor. Your arms should be flat at your sides, next to your body. 3. Tighten your butt muscles and lift your butt off the floor until your waist is almost as high asyour knees. If you do not feel the muscles working in your butt and the back of your thighs, slide your feet 1???2 inches (2.5???5 cm) farther away from your butt. 4. Stay in this position for 3???5 seconds. 5. Slowly lower your butt to the floor, and let your butt muscles relax. If this exercise is too easy, try doing it with your arms crossed over your chest. Belly crunches Do these steps 5???10 times in a row: 1. Lie on your back on a firm bed or the floor with your legs stretched out. 2. Bend your knees so they point up to the ceiling. Your feet should be flat on the floor. 3. Cross your arms over your chest. 4. Tip your chin a little bit toward your chest, but do not bend your neck. 5. Tighten your belly muscles and slowly raise your chest just enough to lift your shoulder blades a tiny bit off the floor. Avoid raising your body higher than that because it can put too much stress on your lower back. 6. Slowly lower your chest and your head to the floor. Back lifts Do these steps 5???10 times in a row: 1. Lie on your belly (face-down) with your arms at your sides, and rest your forehead on the floor. 2. Tighten the muscles in your legs and your butt. 3. Slowly lift your chest off the floor while you keep your hips on the floor. Keep the back of your head in line with the curve in your back. Look at the floor while you do this. 4. Stay in this position for 3???5 seconds. 5. Slowly lower your chest and your face to the floor. Contact a doctor if: ??? Your back pain gets a lot worse when you do an exercise. ??? Your back pain does not get better within 2 hours after you exercise. If you have any of these problems, stop doing the exercises. Do not do them again unless your doctor says it is okay. Get help right away if: ??? You have sudden, very bad back pain. If this happens, stop doing the exercises. Do not do them again unless your doctor says it is okay. This information is not intended to replace advice given to you by your health care provider. Make sure you discuss any questions you have with your health care provider. Document Revised: 05/19/2021 Document Reviewed: 05/19/2021 [employer] Patient Education ?? 2022 [employer]. Follow Up Care 10/08/2023 04:45:59 With:1. Continue current medications as instructions 2. Avoid activity causing pain 3. Can use warm packs over the area on and off for the next 1 to 2 days 4. Follow-up with the pain clinic to address your pain control medications. Address:Unknown When:2 to 4 days Physician Emergency department Note * Percy Salazar MD: PERFORM Event Display: ED Note Physician Authored Date: [id number] IMSHA JACKSON :1980 Age:43 years Sex:Female Visit Date:10/08/2023 Primary Care Physician: Hermes Ramirez MD Basic Information ??No qualifying data available.?? Chief Complaint pt c/o thoracic back pain with radiation to lumbar area after moving furniture yesterday. ??also states has migraine with light and soundsensitivity. ??no PH History Of Present Illness: 43-year-old female presented emergency room by POV with a friend??from home with a complaint of lowback pain.?? The patient states that she was moving heavy furniture all by herself??today and she has low back pain and she came to the ER for??pain control.?? Patient is well-known to this ER had numerous visits in the past for??narcotic pain control up however her attending physician requested not to give any controlled substances anymore??and the patient is well aware of this.?? Her??primary care physician also??is not prescribing any controlled substances for her as outpatient.?? She is scheduled to see the pain clinic for addressing this problem.?? Today she denies any motor or sensory deficits in lower extremities she had history of chronic low back pain and she feels that it is an exacerbation of her??previous back pain.?? 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 Review of Systems: Constitutional:?No??fevers,?No??chills,?No??sweats Eye:?No??recent visual problems ENT:?No??ear pain,?No??nasal congestion,?No??sore throat Respiratory:?No??shortness of breath,?No??cough Cardiovascular:?No??Chest pain,?No??palpitations,?No??syncope Gastrointestinal:?Nonausea,?No??vomiting,?No??diarrhea Genitourinary:?No??hematuria Clemente/Lymph:?No??bruising tendency,?No??swollen lymph glands Endocrine:?No??excessive thirst,??No??excessive hunger Musculoskeletal:??No??back pain,??No??neck pain,??No??joint pain,??No??muscle pain,??No??decreased range of motion Integumentary:?No??rash,?No??pruritus,?No??abrasions Neurologic: Alert & oriented X 4 Psychiatric:?No??anxiety,?No??depression Physical Exam Vitals & Measurements T:??36.8?C ??(Oral)?? HR:??73??(Peripheral)?? RR:??18?? BP:??149/91?? SpO2:??99%?? HT:??157??cm?? WT:??81.6??kg??(Estimated)?? BMI:??33.1?? Pain Score:??8?? O2 Therapy:??Room air?? General: Alert and oriented, well nourished,?No??acute distress Eye: PERRL, EOMI,?Normal?conjunctiva HENT: Normocephalic, clear tympanic membranes,?Normal? hearing, moist oral mucosa,?No??scleral icterus,?No??sinus tenderness Neck: Supple, non-tender,?No??carotid bruits,?No??JVD,?No??lymphadenopathy Lungs:??Clear to auscultation?? Respiration:??Non-Labored Heart:?Normal? rate,?Regular??rhythm,?No??murmur,?No??gallop,?No??edema Breast:?No??lumps,?No??bumps,?No??scars,?Normal? nipples Abdomen: Soft, non-tender, non-distended,?Normal? bowel sounds,?No??masses Musculoskeletal:?Normal? range of motion and strength,?Positive for??tenderness,?No??swelling. ??Tenderness in the paraspinal muscles in lumbar region bilaterally??with palpable spasm. Skin: Skin is warm, dry and pink,?No??rashes,?No??lesions Neurologic: Awake, alert and oriented X4, CN II-XII intact Psychiatric: Cooperative, appropriate mood and affect Medical Decision Making: Patient asked for narcotics and she was advised that??no narcotics will be given this ER??and her??private MD had requested not to give her any additional controlled substances.?? She was given Norflex 60 mg IM??and??she left the ER??in stable condition with a friend who was available to drive. Procedure No Qualifying Data Assessment/Plan Acute low back pain??M54.50,??Chronic lower back pain??M54.50 History of kidney transplant??Z94.0 History of liver transplant??Z94.4 Other chronic pain??G89.29 Patient Discharge Condition Stable Discharge Disposition The patient was discharged home in stable condition. Medication Reconciliation Unchanged amLODIPine (amLODIPine 5 mg [...] Family History Cancer: Mother. Electronically Signed on 10/08/2023 08:55 CDT Percy Salazar MD Patient Care team information Care Team Personnel Name: Jessee Jones TECHNICAL BUSINESS ANALYST Position: Physician Member Role: Nurse Practitioner Address: Address: [address] [place] [address], [address] Name: Latoya Marquez TECHNICAL BUSINESS ANALYST Position: Physician Member Role: Nurse Practitioner Address: Address: [address] [place] [address] Name: Leonila Gonzalez TECHNICAL BUSINESS ANALYST Position: Physician Member Role: Nurse Practitioner Address: Address: [address] [place] [address]- Name: Beth Brandt TECHNICAL BUSINESS ANALYST Position: Physician Member Role: Nurse Practitioner Address: Address: [address] [place] [address] Name: Hermes Ramirez MD Position: Physician Member Role: Informed Provider Address: Address: [address] [place] [address], [address] Name: Pillo Moe TECHNICAL BUSINESS ANALYST Position: Physician Member Role: Nurse Practitioner Address: Address: [address] [place] [address], [address] [facility] Care Team Related Persons Name: STACIA JONES Address: Home [address] [id number] Name: ROBYN JAMA Name: NAIF CHOI Name: MADY CHEN Name: MADY CHEN
--- OUTSIDE RECORDS SUMMARY | 2024-03-20 11:38 | XMS_ITS | Continuity of Care Document ---
Author Organization [facility] Address [address] [place] [address] Care Team Providers Care Time Clock Inspector Name Role Phone Hermes Ramirez Primary Care Physician Encounter ONOFREEver MCGRAW [id number] Date(s): 03/14/22 - 03/14/[address] [address] Encounter Diagnosis Intractable migraine(Discharge Diagnosis) - 03/14/22 Discharge Disposition: Home or Self Care Attending Physician: Felicia Roach MD Admitting Physician: Felicia Roach MD Allergies, Adverse Reactions, Alerts Substance Reaction Severity Status codeine Unknown Itching Severe Active gentamicin Moderate Active erythromycin Medication interaction Activ e NSAIDs Severe Active azithromycin Unknown Severe Active aspirin Medication interaction Severe Activ e Toradol Kidney failure as a complication of care Severe Active Immunizations Given and Recorded Vaccine [...] wheezing, # 6.7 g, 0 Refill(s), Pharmacy: [facility] [place], [place], 73, cm, 09/13/21 23:53:00 CDT, Height/Length [...] needed, # 12 cap, 0 Refill(s), Pharmacy: [facility] [place], [place], 157, cm, 11/04/21 20:02:00 CDT, Height/Length [...] 18:45:00CST, Height/Length Dosing, 72.57, kg, 02/07/22 18:45:00 URGENT CARE, Weight Dosing Start Date: 02/13/22 Status: Ordered [...] nausea/vomiting, # 20 tab, 0 Refill(s), Pharmacy: [facility] [place], [place], 157, cm, 09/29/21 23:03:00 CDT, Height/Length [...] Oral [35.8-37.3 Deg C] 37.0 Deg C (03/14/22 5:00 PM) Peripheral Pulse Rate [60-100 bpm] 78 bp m (03/14/22 5:00 PM) Respiratory Rate [12-24 br/min] 78 br/mi n *HI* (03/14/22 5:00 PM) Blood Pressure [90-140/60-90 mmHg] 156/9 1mmHg *HI* (03/14/22 5:00 PM) Weight Dosing 77.00 kg (03/14/22 6:30 PM) Weight Estimated 77.00 kg (03/14/22 5:00 PM) Height/Length Dosing 157.000 cm (03/14/22 6:30 PM) Height/Length Estimated 157.000 cm (03/14/22 5:00 PM) Social History Social History Type Response Tobacco Current everyday tob acco user Tobacco Use:. Sex Hospital Discharge Instructions Patient Education 03/14/2022 17:43:34 Chronic Migraine Headache, [id number] Chronic Migraine Headache A migraine headache is [...] these instructions at home: Medicines ??? Take nzsr-vnh-cjwatqo and prescription medicines only as told by [...] Headache and Migraine Patients (CHAMP): headachemigraine.org ??? [place] Migraine Foundation: americanmigrainefoundation.org ??? National Headache Foundation: [...] Reviewed: 04/22/2020 Elsevier Patient Education ?? 2021 [employer] 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 ??Same character as before. Review of Systems: Constitutional:?No??fevers,?No??chills,?No??sweats Eye:?No??recent visual problems [...] to auscultation and percussion,?Non-labored?? respiration Heart:?Normal?? rate,?Regular??rhythm,?No??murmur,?No??gallop,?No??edema ?? Abdomen: Soft, non-tender, non-distended,?Normal?? bowel sounds,?No??masses Musculoskeletal:?Normal?? range of motion and strength,?No??tenderness,?No??swelling Skin: Skin is warm, dry and pink,?No??rashes,?No??lesions Neurologic: Awake, alert and oriented X4, CN II-XII intact Psychiatric: Cooperative, appropriate mood and affect Procedure No Qualifying Data Assessment/Plan 1.??Intractable migraine??G43.919 See PCP for further evaluation and management Orders: Benadryl, 50 mg = 1 mL, IM, Injection, Once, First Dose: 03/14/22 17:42:00 URGENT CARE, Stop Date: 03/14/2217:42:00 URGENT CARE, Physician Stop morphine, 2 mg = 0.5 mL, IM, Injection, Once, First Dose: 03/14/22 17:42:00 URGENT CARE, Stop Date: 03/14/22 17:42:00 URGENT CARE, Physician Stop Phenergan, 25 mg = 1 mL, IM, Injection, Once, First Dose: 03/14/22 17:42:00 URGENT CARE, Stop Date: 03/14/22 17:42:00 URGENT CARE, Physician Stop Patient Discharge Condition Stable Discharge Disposition Discharge to home Patient Education Chronic Migraine Headache, Ilag-ol-Odjx Follow Up With When Contact Information Follow [...] Milliliters Intramuscular (in a muscle) once. ?? Other Prescription (Sod Bicarb Tab 10gr [...] Mother. Attending Attestation Stable Electronically Signed on 03/14/22 05:44 PM Felicia Roach MD Patient Care team information Personnel Name: Hermes Ramirez MD Address: Address: [address] [place] [address], [address] [place] [id number]
--- OUTSIDE RECORDS SUMMARY | 2024-03-20 11:38 | XMS_ITS | Continuity of Care Document ---
Author Organization [facility] Address [address] [place] [address] Care Team Providers Care Instructional Systems Designer Name Role Phone Hermes Ramirez Primary Care Physician [phone] Encounter ONOFRE MCGRAW [id number] Date(s): 05/13/22 - 05/13/22 [facility] [address] [place] [address] [place] Discharge Disposition: Home or [...] * Ova + Parasite Exam LC 04/07/22 Functional Status 05/13/22 Other exposure to Infectious Disease Non e [...] wheezing, # 6.7 g, 0 Refill(s), Pharmacy: [place], [place], 73, cm, 09/13/21 23:53:00 CDT, Height/Length [...] needed, # 12 cap, 0 Refill(s), Pharmacy: [place], [place], 157, cm, 11/04/21 20:02:00 CDT, Height/Length [...] BID, # 180 tab, 3 Refill(s), Pharmacy: [facility], 157.48, cm, 02/07/22 18:45:00CST, Height/Length Dosing, 72.57, kg, 02/07/22 18:45:00 CENTRAL SUPPLY ASSISTANT, Weight Dosing Start Date: 02/13/22 Status: Ordered morphine 2 mg/mL preservative-free injectable solution 2 mg = 1 mL, IM, Once, 0 Refill(s) Start Date: 05/05/22 Status: Ordered oseltamivir 30 mg oral capsule 30 mg = 1 cap, Oral, BID, # 10 cap, 0 Refill(s), Pharmacy: [place], [place], 157.48, cm, 03/16/22 18:01:00 CENTRAL SUPPLY ASSISTANT, Height/Length Dosing, 77.11, kg, 03/16/22 18:01:00 CENTRAL SUPPLY ASSISTANT, Weight Dosing Start Date: 03/16/22 Status: Ordered [...] nausea/vomiting, # 20 tab, 0 Refill(s), Pharmacy: [place], [place], 157, cm, 09/29/21 23:03:00 CDT, Height/Length [...] Most recent to oldest [Reference Range]: 1 Weight 74.84 kg (05/13/22 3:11 PM) Weight Measured (lbs) 164.994 lb (05/13/22 3:11 PM) Height 157.48 cm (05/13/22 3:11 PM) Height/Length Measured (inches) 62 inch (05/13/22 3:11 PM) BSA Measured 1.81 m2 (05/13/22 3:11 PM) Body Mass Index 30.18 kg/m2 (05/13/22 3:11 PM) Social History Social History Type Response Tobacco Current everyday tob acco user Tobacco Use:. Sex Patient Care team information Care Team Personnel Name: Jessee Jones GLOBAL EXPANSION SALES DIRECTOR Position: Physician Member Role: Nurse Practitioner Address: Address: [address] [place] [address], [address] Name: Latoya Marquez GLOBAL EXPANSION SALES DIRECTOR Position: Physician Member Role: Nurse Practitioner Address: Address: [address] [place] [address]- Name: Leonila Gonzalez GLOBAL EXPANSION SALES DIRECTOR Position: Physician Member Role: Nurse Practitioner Address: Address: [address] [place] [address]- Name: Beth Brandt GLOBAL EXPANSION SALES DIRECTOR Position: Physician Member Role: Nurse Practitioner Address: Address: [address] [place] [address] Name: Hermes Ramirez MD Position: Physician Member Role: Informed Provider Address: Address: [address] [facility], [address] [place] [address]- Name: Pillo Moe GLOBAL EXPANSION SALES DIRECTOR Position: Physician Member Role: Nurse Practitioner Address: Address: [address] [facility] [place], [address] [facility] Care Team Related Persons Name: STACIA JONES Address: Home [address] [place], [place] [id number] Name: ROBYN JAMA Address: Home
--- OUTSIDE RECORDS SUMMARY | 2024-03-20 11:38 | XMS_ITS | Continuity of Care Document ---
Author Organization [facility] Address [address] [place] [address] Care Team Providers Care Bank Messenger Name Role Phone Ashley Hermes Chris Primary Care Physician [phone] Encounter [facility] [id number] Date(s): 12/28/21 - 12/28/[address] [address] Encounter Diagnosis Upper respiratory infection(Discharge Diagnosis) - 12/28/21 Migraine headache(Discharge Diagnosis) - 12/28/21 Discharge Disposition: Home or Self Care Attending Physician: Jesus Khan MD Admitting Physician: Jesus Khan MD Allergies, Adverse Reactions, Alerts Substance Reaction Severity Status codeine Unknown Itching Severe Active gentamicin Moderate Active erythromycin Medication interaction Activ e azithromycin Unknown Severe Active aspirin Medication interaction Severe Activ e Toradol Kidney failure as a complication of care Severe Active NSAIDs Severe Active Functional Status 12/28/21 Other exposure to Infectious Disease COV ID-19 [...] wheezing, # 6.7 g, 0 Refill(s), Pharmacy: [facility] [place], [place], [address], cm, 09/13/21 23:53:00 CDT, Height/Length [...] needed, # 12 cap, 0 Refill(s), Pharmacy: [place], [place], [address], cm, 11/04/21 20:02:00 CDT, Height/Length Dosing, 73, kg, 11/04/21 20:02:00 CDT, Weight Dosing Start Date: 11/04/21 Status: Ordered clotrimazole 1% topical solution 3 [...] BID, # 180 tab, 3 Refill(s), Pharmacy: [place], [place], [address], cm, 10/22/20 21:26:00 CDT, Height/Length Dosing, 74, kg, 10/22/20 21:26:00 CDT, Weight Dosing Start Date: 12/18/20 Status: Ordered ondansetron 4 mg oral tablet, disintegrating 4 mg = 1 tab, Oral, every 6 hr, PRN nausea/vomiting, # 12 tab, 0 Refill(s), Pharmacy: [place], [place], [address], cm, 11/04/21 20:02:00 CDT, Height/Length [...] nausea/vomiting, # 20 tab, 0 Refill(s), Pharmacy: [place], [place], [address], cm, 09/29/21 23:03:00 CDT, Height/Length [...] Name Date Urinalysis with Culture if Indicated 02/08 .Urine Volume 12/28/21 Urinalysis Microscopic 12/28/21 CBC w/ Diff 12/28/21 Comprehensive Metabolic Panel (CMP) 12/18 04/10 Automated Diff 12/28/21 Respiratory Panel 2.1 ([employer]) 12/28/21 Most recent to oldest [Reference Range]: 1 WBC [4.0-11.5 K/mcL] 6.3 K/mcL (12/28/21 7:46 PM) RBC [4.20-5.40 x10^6/mcL] 4.38 x10^6/mcL (12/28/21 7:46 PM) Neutro Auto 67.7 % *NA* (12/28/21 7:46 PM) Lymph Auto 23.0 % *NA* (12/28/21 7:46 PM) Clark Auto 6.9 % *NA* (12/28/21 7:46 PM) Basophil Auto 0.2 % *NA* (12/28/21 7:46 PM) BUN [7-18 mg/dL] 26 mg/dL *HI* (12/28/21 7:46 PM) UA Color Yellow (12/28/21 8:28 PM) UA WBC [0-5] None (12/28/21 8:28 PM) Glucose Level [70-110 mg/dL] 82 mg/dL (12/28/21 7:46 PM) Potassium Level [3.5-5.1 mmol/L] 3.6 mmo l/L (12/28/21 7:46 PM) Baso Absolute [0.0-0.1 x10^3/mcL] 0.0 x1 0^3/mcL (12/28/21 7:46 PM) MCV [78.0-100.0 fL] 96.3 fL (12/28/21 7:46 PM) UA Urobilinogen [Normal mg/dL] Normal mg /dL (12/28/21 8:28 PM) UA Bili [Negative mg/dL] Negative mg/dL (12/28/21 8:28 PM) UA Ketones [Negative mg/dL] Negative mg/ dL (12/28/21 8:28 PM) AST [15-37 unit/L] 17 unit/L (12/28/21 7:46 PM) ALT [12-78 unit/L] 29 unit/L (12/28/21 7:46 PM) MCHC [29.0-37.5 g/dL] 33.9 g/dL (12/28/21 7:46 PM) Sodium Level [136-145 mmol/L] 142 mmol/L (12/28/21 7:46 PM) UA RBC [0-3] None (12/28/21 8:28 PM) UA Leuk Est [Negative Guille/mcL] Negative Guille/mcL (12/28/21 8:28 PM) Lymph Absolute [0.8-5.8 x10^3/mcL] 1.5 x 10^3/mcL (12/28/21 7:46 PM) UA Nitrite [Negative] Negative (12/28/21 8:28 PM) UA Glucose [Normal mg/dL] Normal mg/dL (12/28/21 8:28 PM) Hct [36.0-48.0 %] 42.2 % (12/28/21 7:46 PM) UA Bacteria [None Seen] Occasional *ABN* (12/28/21 8:28 PM) Calcium Level [8.5-10.1 mg/dL] 8.2 mg/dL *LOW* (12/28/21 7:46 PM) Clark Absolute [0.1-1.5 x10^3/mcL] 0.4 x1 0^3/mcL (12/28/21 7:46 PM) Albumin Level [3.4-5.0 g/dL] 3.5 g/dL (12/28/21 7:46 PM) Protein Total [6.4-8.2 g/dL] 6.9 g/dL (12/28/21 7:46 PM) UA Protein [Negative mg/dL] Negative mg/ dL (12/28/21 8:28 PM) MCH [27.0-34.0 pg] 32.6 pg (12/28/21 7:46 PM) Neutro Absolute [1.5-8.1 x10^3/mcL] 4.3 x10^3/mcL (12/28/21 7:46 PM) Bilirubin Total [0.0-1.0 mg/dL] 0.4 mg/d L (12/28/21 7:46 PM) Hgb [12.0-16.0 g/dL] 14.3 g/dL (12/28/21 7:46 PM) Alk Phos [46-130 unit/L] 172 unit/L *HI* (12/28/21 7:46 PM) UA Blood [Negative Rocael/mcL] Negative Rocael /mcL (12/28/21 8:28 PM) MPV [6.0-10.0 fL] 10.6 fL *HI* (12/28/21 7:46 PM) UA Mucous [None Seen] None Seen (12/28/21 8:28 PM) UA Spec Grav 1.015 (12/28/21 8:28 PM) Platelets [150-450 K/mcL] 114 K/mcL *LOW* (12/28/21 7:46 PM) CO2 [21-32 mmol/L] 24 mmol/L (12/28/21 7:46 PM) Eos Absolute [0.0-0.5 x10^3/mcL] 0.1 x10 ^3/mcL (12/28/21 7:46 PM) UA Squam Epithelial [None Seen] Few (12/28/21 8:28 PM) UA pH [5.0-9.0] 6.5 (12/28/21 8:28 PM) eGFR Non-AA 41 *NA* (12/28/21 7:46 PM) eGFR AA 50 *NA* (12/28/21 7:46 PM) UA Appear [Clear] Clear (12/28/21 8:28 PM) Chloride Level [97-107 mmol/L] 109 mmol/ L *HI* (12/28/21 7:46 PM) RDW-CV [11.5-15.0 %] 11.8 % (12/28/21 7:46 PM) Adenovirus RespP-BFire [Not Detected] No t Detected (12/28/21 7:09 PM) Bordetella parapertussis RespP-BFire [No t Detected] Not Detected (12/28/21 7:09 PM) Bordetella pertussis RespP-BFire [Not De tected] Not Detected (12/28/21 7:09 PM) Chlamydophila pneumoniae RespP-BFire [No t Detected] Not Detected (12/28/21 7:09 PM) Coronavirus 229E (Not COVID-19) RP-BFire [Not Detected] Not Detected (12/28/21 7:09 PM) Coronavirus HKU1 (Not COVID-19) RP-BFire [Not Detected] Not Detected (12/28/21 7:09 PM) Coronavirus NL63 (Not COVID-19) RP-BFire [Not Detected] Not Detected (12/28/21 7:09 PM) Coronavirus OC43 (Not COVID-19) RP-BFire [Not Detected] Not Detected (12/28/21 7:09 PM) Human Metapneumonovirus RespP-BFire [Not Detected] Not Detected (12/28/21 7:09 PM) Human Rhinovirus/Enterovirus RespP-BFir [Not Detected] Not Detected (12/28/21 7:09 PM) Influenza A RespP-BFire [Not Detected] N ot Detected (12/28/21 7:09 PM) Influenza B RespP-BFire [Not Detected] N ot Detected (12/28/21 7:09 PM) Mycomplasma pneumoniae RespP-BFire [Not Detected] Not Detected (12/28/21 7:09 PM) Parainfluenza Virus 1 RespP-BFire [Not D etected] Not Detected (12/28/21 7:09 PM) Parainfluenza Virus 2 RespP-BFire [Not D etected] Not Detected (12/28/21 7:09 PM) Parainfluenza Virus 3 RespP-BFire [Not D etected] Not Detected (12/28/21 7:09 PM) Parainfluenza Virus 4 RespP-BFire [Not D etected] Not Detected (12/28/21 7:09 PM) Respiratory Syncytial Virus RespP-BFire [Not Detected] Not Detected (12/28/21 7:09 PM) Imm Gran Absolute [0.0-0.1 x10^3/mcL] 0. 0 x10^3/mcL (12/28/21 7:46 PM) Imm Gran Auto 0.3 % *NA* (12/28/21 7:46 PM) NRBC Auto 0.0 % *NA* (12/28/21 7:46 PM) NRBC Absolute [0.0-0.0 x10^3/mcL] 0.0 x1 0^3/mcL (12/28/21 7:46 PM) UA Culture Ind?. Not Indicated (12/28/21 8:28 PM) Urine Srce Clean Catch (12/28/21 8:28 PM) Urine Volume 12 mL (12/28/21 8:28 PM) Creatinine Level [0.60-1.30 mg/dL] 1.49 mg/dL *HI* (12/28/21 7:46 PM) SARS-CoV-2 (COVID-19) RP-BFire [Not Dete cted] Not Detected (12/28/21 7:09 PM) Employed in healthcare? No *NA* (12/28/21 7:09 PM) Symptomatic as defined by CDC? No *NA* (12/28/21 7:09 PM) Hospitalized due to COVID-19? No *NA* (12/28/21 7:09 PM) In ICU? No *NA* (12/28/21 7:09 PM) Group care resident? No *NA* (12/28/21 7:09 PM) status? Unknown *NA* (12/28/21 7:09 PM) Anion Gap [5-15 mmol/L] 13 mmol/L (12/28/21 7:46 PM) Eos, Auto 1.9 % *NA* (12/28/21 7:46 PM) UA Yeast [None Seen] None Seen (12/28/21 8:28 PM) Radiology Reports * Exam Date Time Procedure Performing Provider Status 12/28/21 7:20 PM XR Chest 1 View Juliette Cole RT(R)(C T); Auth (Verified) Notes: (XR Chest 1 View) Reason For Exam: Flulike symptoms, fever. XR Chest 1 View EXAM DESCRIPTION: XR Chest 1 View REASON FOR STUDY: Flue like symptoms, fever. Denies chest pain or SOB. Malaise. DURATION: 2 days Comparisons: 06/23/21 PREVIOUS SURGERY: C-sec, Breast cyst, Kidney and liver transplant, Hernia, Tubal ligation/ablasion. SMOKING HISTORY: 03/23 to 03/21 pk TECHNIQUE: One radiographic view of the chest acquired. COMPARISON: 06/23/2021. FINDINGS: LUNGS/PLEURA: No focal consolidation or pneumothorax. No pleural effusion. HEART/MEDIASTINUM: Heart size is normal. Normal mediastinal and hilar contours. HARDWARE/LINES/TUBES: None. BONES: No acute findings. OTHER: No other significant finding. IMPRESSION: No acute cardiopulmonary disease. THIS IS AN ELECTRONICALLY VERIFIED FINAL REPORT 12/28/2021 7:46 PM - Electronically signed by Dustin Gonzalez M.D. CH: ROSINA Report ID: [id number] Reading Location: [place] [address] Final Dictated by: Jr Gonzalez Chester Dictated DT/TM: 12/28/2021 7:48 pm Signed by: Jr Gonzalez Chester Earl MD Signed (Electronic Signature): 12/28/2021 7:48 pm Vital Signs Most recent to oldest [Reference Range]: 1 Temperature Oral [35.8-37.3 Deg C] 37.2 Deg C (12/28/21 6:56 PM) Peripheral Pulse Rate [60-100 bpm] 112 b pm *HI* (12/28/21 6:56 PM) Respiratory Rate [12-24 br/min] 18 br/mi n (12/28/21 6:56 PM) Blood Pressure [90-140/60-90 mmHg] 137/7 6mmHg (12/28/21 6:56 PM) Weight 72.57 kg (12/28/21 6:56 PM) Weight Dosing 72.57 kg (12/28/21 7:02 PM) Height 157.480 cm (12/28/21 6:56 PM) Height/Length Dosing 157.480 cm (12/28/21 7:02 PM) Social History Social History Type Response Tobacco Current some day tob acco user Tobacco Use:. Sex Hospital Discharge Instructions Patient Education 12/28/2021 20:57:43 Upper Respiratory Infection, Adult, Jbwq-sl-Nzzg Upper Respiratory Infection, Adult An upper respiratory infection (URI) affects the nose, throat, and upper air passages. URIs are caused by germs (viruses). The most common type of URI is often called the common cold. Medicines cannot cure URIs, but you can do things at home to relieve your symptoms. URIs usually get better within 7???10 days. Follow these instructions at home: Activity ??? [...] of spreading the infection. Relieving symptoms ??? Gargle with a salt-water mixture 3???4 times a day or as needed. To make a salt-water mixture, completely dissolve ?1 tsp of salt in 1 cup of warm water. ??? Use a cool-mist humidifier to add moisture to the air. This can help you breathe more easily. Eating and drinking ??? Drink enough fluid to keep your pee (urine) pale yellow. ??? Eat soups and other clear broths. General instructions ??? Take ihnm-wfl-mkpmofb and prescription medicines only as told by your doctor. These include cold medicines, fever reducers, and cough suppressants. ??? Do not use any products that contain nicotine or tobacco. These include cigarettes and e-cigarettes. If you need help quitting, ask your doctor. ??? Avoid being where people are smoking (avoid secondhand smoke). ??? Make sure you get regular shots and get the flu shot every year. ??? Keep all follow-up visits as told by your doctor. This is important. How to avoid spreading infection to others ??? Wash your hands often with soap and water. If you do not have soap and water, use hand budget engineer. ??? Avoid touching your mouth, face, eyes, or nose. ??? Cough or sneeze into a tissue or your sleeve or elbow. Do not cough or sneeze into your hand orinto the air. Contact a doctor if: ??? You are getting worse, not better. ??? You have any of these: ??? A fever. ??? Chills. ??? Brown or red mucus in your nose. ??? Yellow or brown fluid (discharge)coming from your nose. ??? Pain in your face, especially when you bend forward. ??? Swollen neck glands. ??? Pain with swallowing. ??? White areas in the back of [...] disease along with any of these: ??? Wheezing. ??? Long-lasting cough. ??? Coughing up blood. ??? A change in your usual mucus. ??? You have a stiff neck. ??? You have changes in your: ??? Vision. ??? Hearing. ??? Thinking. ??? Mood. Summary ??? An upper respiratory infection (URI) is caused by a germ called a virus. The most common type of URI is often called the common cold. ??? URIs usually get better within 7???10 days. ??? Take dvho-hcc-pkxplbn and prescription medicines only as told by your doctor. This information is not intended to replace advice given to you by your health care provider. Make sure you discuss any questions you have with your health care provider. Document Revised: 11/12/2020 Document Reviewed: 11/12/2020 [employer] Patient Education ?? 2021 [employer] 12/28/2021 20:57:30 Chronic Migraine Headache, Nphj-xt-Llaf Chronic Migraine Headache A migraine headache is [...] these instructions at home: Medicines ??? Take dtrf-hjg-ddnjrws and prescription medicines only as told by [...] Headache and Migraine Patients (CHAMP): headachemigraine.org ??? [place] Migraine Foundation: americanmigrainefoundation.org ??? National Headache Foundation: [...] Reviewed: 04/22/2020 [employer] Patient Education ?? 2021 [employer]. Follow Up Care 12/28/2021 18:56:05 With:Hermes Ramirez MD Address: [address] [place] [address] [place] [address]- When:5 to 7 days Comments:Continue other home medications.?? Return to ED if symptoms worsen. XR Chest Single view * Jr Gonzalez Chester Earl MD: PERFORM, VERIFY, VERIFY Event Display: Report Authored Date: EXAM DESCRIPTION: XR Chest 1 View REASON FOR STUDY: Flue like symptoms, fever. Denies chest pain or SOB. Malaise. DURATION: 2 days Comparisons: 06/23/21 PREVIOUS SURGERY: C-sec, Breast cyst, Kidney and liver transplant, Hernia, Tubal ligation/ablasion. SMOKING HISTORY: 03/23 to 03/21 pk TECHNIQUE: One radiographic view of the chest acquired. COMPARISON: 06/23/2021. FINDINGS: LUNGS/PLEURA: No focal consolidation or pneumothorax. No pleural effusion. HEART/MEDIASTINUM: Heart size is normal. Normal mediastinal and hilar contours. HARDWARE/LINES/TUBES: None. BONES: No acute findings. OTHER: No other significant finding. IMPRESSION: No acute cardiopulmonary disease. THIS IS AN ELECTRONICALLY VERIFIED FINAL REPORT 12/28/2021 7:46 PM - Electronically signed by Dustin Gonzalez M.D. CH: ROSINA Report ID: [id number] Reading Location: [id number] Final Dictated by: Jr Gonzalez Chester Dictated DT/TM: 12/28/2021 7:48 pm Signed by: Jr Gonzalez Chester Earl MD Signed (Electronic Signature): 12/28/2021 7:48 pm Patient Care team information Personnel Name: Hermes Ramirez MD Address: Address: [address] [place] [address] [place] [address]
--- OUTSIDE RECORDS SUMMARY | 2024-03-20 11:38 | XMS_ITS | Continuity of Care Document ---
Author Organization [facility] Address [address] [place] [address] Care Team Providers Care Account Executive Software Sales Name Role Phone Hermes Ramirez Primary Care Physician Encounter [facility] [id number] Date(s): 09/28/23 - 09/28/[address] [address]- [place] Encounter Diagnosis Acute migraine(Discharge Diagnosis) - 09/28/23 Drug-seeking behavior(Discharge Diagnosis) - 09/28/23 Discharge Disposition: Left Against Medical Advice Attending Physician: Percy Salazar MD Admitting Physician: [...] Daily, # 30 tab, 11 Refill(s), Pharmacy: [place], [place], [address], cm, 01/04/23 15:03:00 CDT, Height/Length [...] cap, 2 Refill(s), Pharmacy: [id number] [place], 157.[address], cm, 07/23/23 17:59:00 CDT, Height, 88.45, [...] BID, # 60 cap, 11 Refill(s), Pharmacy: [place], [place], [address], cm, 01/04/23 15:03:00 CDT, Height/Length Dosing, 81.65, kg, 01/04/23 15:03:00 CDT, Weight Dosing Start Date: 01/11/23 Status: Ordered Nicotrol Inhaler 10 mg inhalation device See Instructions, 6-16 cartriges/day, # 1 EA, 2 Refill(s), Pharmacy: [id number], [address], cm, 08/29/23 14:22:00 CDT, Height, 88, kg, 08/29/23 14:27:00 CDT, Weight Dosing Start Date: 08/29/23 Status: Ordered pantoprazole 40 mg oral delayed release tablet 1 tab, Oral, Daily, # 90 tab, 0 Refill(s), Pharmacy: [id number], 157.[address], cm, 06/07/23 16:07:00 CDT, Height, 89.36, [...] QID, # 360 tab, 0 Refill(s), Pharmacy: [id number], 157.[address], cm, 08/29/23 14:22:00 CDT, Height, 88, kg, 08/29/23 14:27:00 CDT, Weight Dosing Start Date: 09/05/23 Status: Ordered venlafaxine 37.5 mg oral capsule, extended release 37.5 mg = 1 cap, Oral, Daily, # 90 cap, 0 Refill(s), Pharmacy: [id number] [place], 157.48, cm, 08/29/23 14:22:00 CDT, Height, [...] Oral [35.8-37.3 Deg C] 36.7 Deg C (09/28/23 6:18 PM) Peripheral Pulse Rate [60-100 bpm] 72 bp m (09/28/23 6:18 PM) Respiratory Rate [12-24 br/min] 18 br/mi n (09/28/23 6:18 PM) Blood Pressure [90-140/60-90 mmHg] 147/8 6mmHg *HI* (09/28/23 6:18 PM) Mean Arterial Pressure, Cuff [65-140 mmH g] 106 mmHg (09/28/23 6:18 PM) Weight 81.65 kg (09/28/23 6:18 PM) Weight Dosing 81.650 kg (09/28/23 6:18 PM) Height 157.48 cm (09/28/23 6:18 PM) Body Mass Index 32.92 kg/m2 (09/28/23 6:18 PM) Social History Social History Type Response Tobacco Current everyday tob acco user Tobacco Use:. Sex Patient Care team information Care Team Personnel Name: Jessee Jones [employer] SALESPERSON Position: Physician Member Role: Nurse Practitioner Address: Address: [address] [place] [address] [place] [address] Name: Latoya Marquez [employer] SALESPERSON Position: Physician Member Role: Nurse Practitioner Address: Address: [address] [place] [address]- Name: Leonila Gonzalez [employer] SALESPERSON Position: Physician Member Role: Nurse Practitioner Address: Address: [address] [place] [address]- Name: Beth Brandt [employer] SALESPERSON Position: Physician Member Role: Nurse Practitioner Address: Address: [address] [place] [address] Name: Hermes Ramirez MD Position: Physician Member Role: Informed Provider Address: Address: [address] [facility], [address] [place] [address]- Name: Pillo Moe NP Position: Physician Member Role: Nurse Practitioner Address: Address: [address] [place] [address], [address] [facility] Care Team Related Persons Name: STACIA JONES Address: Home [address] [id number] Name: ROBYN JAMA Name: NAIF CHOI Name: MADY CHEN Name: MADY CHEN
--- OUTSIDE RECORDS SUMMARY | 2024-03-20 11:38 | XMS_ITS | Continuity of Care Document ---
Author Organization [facility] Address [address] [place] [address] Care Team Providers Care Strike Planning Applications Name Role Phone Hermes Ramirez Primary Care Physician [phone] Encounter [facility] [id number] Date(s): 11/10/23 - 11/10/23 [place] [address] [place] [address] [place] Discharge Disposition: Home or Self Care Attending Physician: Alejandro Hunt Jr, DO Admitting Physician: Alejandro Hunt Jr, DO Allergies, Adverse Reactions, Alerts Substance Criticality [...] Plan Future Appointments Diagnostic Tests Pending * Cyclosporine, Blood LC-MS/MS LC 11/10/23 Future Scheduled Tests Radiology* [facility] Mammo Diagnostic [...] Daily, # 30 tab, 11 Refill(s), Pharmacy: [place], [place], [address], cm, 01/04/23 15:03:00 CDT, Height/Length Dosing, 81.65, kg, 01/04/23 15:03:00 CDT, Weight Dosing Start Date: 01/11/23 Status: Ordered aspirin 81 mg oral delayed release tablet 81 mg = 1 tab, Oral, Daily, # 30 tab, 0 Refill(s) Start Date: 04/05/21 Status: Ordered gabapentin 300 mg oral capsule 600 mg = 2 cap, Oral, BID, # 120 cap, 2 Refill(s), Pharmacy: [facility], 157.48, cm, 07/23/23 17:59:00 CDT, Height, 88.45, [...] BID, # 60 cap, 11 Refill(s), Pharmacy: [place], [place], [address], cm, 01/04/23 15:03:00 CDT, Height/Length Dosing, 81.65, kg, 01/04/23 15:03:00 CDT, Weight Dosing Start Date: 01/11/23 Status: Ordered Nicotrol Inhaler 10 mg inhalation device See Instructions, 6-16 cartriges/day, # 1 EA, 2 Refill(s), Pharmacy: [id number], 157.48, cm, 08/29/23 14:22:00 CDT, Height, 88, kg, 08/29/23 14:27:00 CDT, Weight Dosing Start Date: 08/29/23 Status: Ordered pantoprazole 40 mg oral delayed release tablet 1 tab, Oral, Daily, # 90 tab, 0 Refill(s), Pharmacy: [id number], 157.48, cm, 06/07/23 16:07:00 CDT, Height, 89.36, [...] QID, # 360 tab, 0 Refill(s), Pharmacy: [id number], 157.48, cm, 08/29/23 14:22:00 CDT, Height, 88, kg, 08/29/23 14:27:00 CDT, Weight Dosing Start Date: 09/05/23 Status: Ordered venlafaxine 37.5 mg oral capsule, extended release 37.5 mg = 1 cap, Oral, Daily, # 90 cap, 0 Refill(s), Pharmacy: [id number] [place], 157.48, cm, 08/29/23 14:22:00 CDT, Height, [...] 2normal 3normal Results Laboratory List Name Date Comprehensive Metabolic Panel 11/10/23 Most recent to oldest [Reference Range]: 1 BUN [7-18 mg/dL] 30 mg/dL *HI* (11/10/23 6:28 AM) Glucose Level [70-110 mg/dL] 94 mg/dL (11/10/23 6:28 AM) Potassium Level [3.5-5.1 mmol/L] 4.2 mmo l/L (11/10/23 6:28 AM) AST [15-37 unit/L] 20 unit/L (11/10/23 6:28 AM) ALT [12-78 unit/L] 30 unit/L (11/10/23 6:28 AM) Sodium Level [136-145 mmol/L] 144 mmol/L (11/10/23 6:28 AM) Calcium Level [8.5-10.1 mg/dL] 8.8 mg/dL (11/10/23 6:28 AM) Albumin Level [3.4-5.0 g/dL] 2.8 g/dL *LOW* (11/10/23 6:28 AM) Protein Total [6.4-8.2 g/dL] 6.6 g/dL (11/10/23 6:28 AM) Bilirubin Total [0.0-1.0 mg/dL] 0.5 mg/d L (11/10/23 6:28 AM) Alk Phos [46-130 unit/L] 274 unit/L *HI* (11/10/23 6:28 AM) CO2 [21-32 mmol/L] 23 mmol/L (11/10/23 6:28 AM) Chloride Level [97-107 mmol/L] 112 mmol/ L *HI* (11/10/23 6:28 AM) Creatinine Level [0.60-1.30 mg/dL] 1.86 mg/dL 1 *HI* (11/10/23 6:28 AM) Anion Gap [5-15 mmol/L] 13 mmol/L (11/10/23 6:28 AM) eGFR CKD-EPI 34 mL/min/1.73 m2 *NA* (11/10/23 6:28 AM) 1Interpretive Data: Association of GFR and [...] information Care Team Personnel Name: Jessee Jones FLAT HAMMERER Position: Physician Member Role: Nurse Practitioner Address: [address] [place] [address] Name: Latoya Marquez FLAT HAMMERER Position: Physician Member Role: Nurse Practitioner Address: [address] [place] [address] Name: Leonila Gonzalez FLAT HAMMERER Position: Physician Member Role: Nurse Practitioner Address: [address] [place] [address] Name: Beth Brandt FLAT HAMMERER Position: Physician Member Role: Nurse Practitioner Address: [address] [place], [place] [address] Name: Hermes Ramirez MD Position: Physician Member Role: Informed Provider Address: [address] [facility] [address] [place] [address]- Name: Pillo Moe NP Position: Physician Member Role: Nurse Practitioner Address: [address] [facility] [address] [facility] Care Team Related Persons Name: STACIA JONES Name: ROBYN JAMA Name: NAIF CHOI Name: MADY CHEN Name: MADY CHEN Insurance Providers Guarantor name: MISHA JACKSON Health Plan Information #: 2 Payer: [employer]OV[employer] Member Number: [id number] Policy Number: NA Health Plan Information #: 1 Payer: [facility] MEDICA[facility] D CARE Member Number: [id number] Policy Number:
--- OUTSIDE RECORDS SUMMARY | 2024-03-20 11:38 | XMS_ITS | Continuity of Care Document ---
Author Organization [facility] Address [address] [place] [address] Care Team Providers Care Heel Brusher Name Role Phone Hermes Ramirez Primary Care Physician Encounter RANDY MARILUZ [id number] Date(s): 02/06/24 - 02/06/[address] [address]- [place] Encounter Diagnosis Other chronic pain(Discharge Diagnosis) - 02/06/24 Migraine headache(Discharge Diagnosis) - 02/06/24 Chronic back pain(Discharge Diagnosis) - 02/06/24 Discharge Disposition: Home or Self Care Attending Physician: Felicia Roach MD Admitting Physician: Felicia Roach MD Allergies, Adverse Reactions, Alerts Substance Criticality [...] from: Title:ED Provider Note Author:Car Roach MD Date:02/06/24 Assessment/Plan 1.??Chronic back pain??M54.9 ??See your neurologist as scheduled 2.??Migraine headache??G43.909 ??See your neurologist as scheduled Other chronic pain??G89.29 Orders: Discharge Patient, 02/06/24 16:53:00 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 [facility], [address] [place] [address]- ?? Additional Instructions: Future Appointments Future Scheduled [...] Daily, # 30 tab, 11 Refill(s), Pharmacy: [place], [place], 157.48, cm, 01/04/23 15:03:00 CDT, Height/Length [...] BID, # 120 cap, 2 Refill(s), [facility]acy: [id number], 157.48, cm, 07/23/23 17:59:00 CDT, Height, [...] BID, # 60 cap, 11 Refill(s), Pharmacy: [place], 157.48, cm, 01/04/23 15:03:00 CDT, Height/Length Dosing, 81.65, kg, 01/04/23 15:03:00 CDT, Weight Dosing Start Date: 01/11/23 Status: Ordered nicotine 21 mg/24 hr transdermal film, extended release 1 patches, Transdermal, Daily, # 14 patches, 1 Refill(s), [id number], 157.48, cm, 01/01/24 14:49:00 CDT, Height, 87.09, kg, 01/01/24 14:53:00 CDT, Weight Dosing Start Date: 01/01/24 Status: Ordered Nicotrol Inhaler 10 mg inhalation device See Instructions, 6-16 cartriges/day, # 1 EA, 2 Refill(s), Pharmacy: [id number], 157.48, cm, 08/29/23 14:22:00 CDT, Height, 88, kg, 08/29/23 14:27:00 CDT, Weight Dosing Start Date: 08/29/23 Status: Ordered pantoprazole 40 mg oral delayed release tablet 1 tab, Oral, Daily, # 90 tab, 0 Refill(s), Pharmacy: [id number], 157.48, cm, 06/07/23 16:07:00 CDT, Height, 89.36, [...] QID, # 360 tab, 0 Refill(s), Pharmacy: [id number], 157.48, cm, 08/29/23 14:22:00 CDT, Height, 88, kg, 08/29/23 14:27:00 CDT, Weight Dosing Start Date: 09/05/23 Status: Ordered venlafaxine 37.5 mg oral capsule, extended release 37.5 mg = 1 cap, Oral, Daily, # 90 cap, 0 Refill(s), [id number] [place], 157.48, cm, 09/28/23 18:18:00 CDT, Height, 81.65, kg, 09/28/23 18:20:00 CDT, Weight Dosing Start Date: 11/22/23 Status: Ordered Mental Status 02/06/24 Eye Opening Response Yanira Spontaneous ly Best Verbal Response [place] Oriented Best Motor Response [place] Obeys comman ds [place] Coma Score 15 Problem List Condition Confirmation Course Effective Dates [...] 2normal 3normal Results Laboratory List Name Date Urinalysis with Culture if Indicated .Urine Volume 02/06/24 Urinalysis Microscopic 02/06/24 Most recent to oldest [Reference Range]: 1 UA Color Yellow (02/06/24 4:24 PM) UA WBC [0-5] 0-5 (02/06/24 4:24 PM) UA Urobilinogen [Normal mg/dL] Normal mg /dL (02/06/24 4:24 PM) UA Bili [Negative mg/dL] Negative mg/dL (02/06/24 4:24 PM) UA Ketones [Negative mg/dL] Negative mg/ dL (02/06/24 4:24 PM) UA RBC [0-3] None (02/06/24 4:24 PM) UA Leuk Est [Negative Guille/mcL] Negative Guille/mcL (02/06/24 4:24 PM) UA Nitrite [Negative] Negative (02/06/24 4:24 PM) UA Glucose [Normal mg/dL] Normal mg/dL (02/06/24 4:24 PM) UA Bacteria [None Seen] Occasional *ABN* (02/06/24 4:24 PM) UA Protein [Negative mg/dL] Negative mg/ dL (02/06/24 4:24 PM) UA Blood [Negative Rocael/mcL] Negative Rocael /mcL (02/06/24 4:24 PM) UA Mucous [None Seen] None Seen (02/06/24 4:24 PM) UA Spec Grav 1.015 (02/06/24 4:24 PM) UA Squam Epithelial [None Seen] Few (02/06/24 4:24 PM) UA pH [5.0-9.0] 5.0 (02/06/24 4:24 PM) UA Appear [Clear] Clear (02/06/24 4:24 PM) UA Felch Yeast [None Seen] Occasional *ABN* (02/06/24 4:24 PM) UA Culture Ind?. Not Indicated (02/06/24 4:24 PM) Urine Srce Clean Catch (02/06/24 4:24 PM) Urine Volume 12 mL (02/06/24 4:24 PM) UA Yeast [None Seen] Occasional *ABN* (02/06/24 4:24 PM) Vital Signs Most recent to oldest [Reference Range]: 1 Peripheral Pulse Rate [60-100 bpm] 68 bp m (02/06/24 4:22 PM) Respiratory Rate [12-24 br/min] 16 br/mi n (02/06/24 4:22 PM) Blood Pressure [90-120/60-80 mmHg] 159/8 6mmHg *HI* (02/06/24 4:22 PM) Mean Arterial Pressure, Cuff [65-140 mmH g] 110 mmHg (02/06/24 4:22 PM) Weight 89.91 kg (02/06/24 4:22 PM) Weight Dosing 89.910 kg (02/06/24 4:22 PM) Height 157.5 cm (02/06/24 4:22 PM) Body Mass Index 36.24 kg/m2 (02/06/24 4:22 PM) Social History Social History Type Response Tobacco Current everyday tob acco user Tobacco Use:. Sex Sex Representation Female (finding) Hospital Discharge Instructions Patient Education 02/06/2024 16:54:13 Chronic Migraine Headache Chronic Migraine Headache A [...] these instructions at home: Medicines ??? Take rsxq-qrs-wgerkog and prescription medicines only as told by [...] Headache and Migraine Patients (CHAMP): headachemigraine.org ??? [place] Migraine Foundation: americanmigrainefoundation.org ??? National Headache Foundation: [...] provider. Document Revised: 08/18/2022 Document Reviewed: 04/22/2020 [employer] Patient Education ?? 2022 [employer]. Follow Up Care 02/06/2024 15:47:38 With:Hermes Ramirez MD Address: [address] [place] [address], [address] [place] [address]- When:1 month Physician Emergency department Note * Felicia Roach MD: PERFORM Event Display: ED Note Physician Authored Date: [id number] MISHA JACKSON :1980 Age:43 years Sex:Female Visit Date:02/06/2024 Primary Care Physician: Hermes Ramirez MD Basic Information Time Seen: Felicia Roach MD / 02/06/2024 15:58 Chief Complaint Pt to ER w mult c/o: Migraine, c/f possible UTI, R Shoulder et Back pain, et BL feet hurt. S/S are chronic, pt has been seen many times this month alone for similar c/o. No PH. No specific duration of pain. 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 She has had chronic right shoulder and back pain??and PCP already has her scheduled to get an MRI of the shoulder and the back.?? Previous x-rays have been negative.?? This is her seventh ER visits just this month alone for same problems. ??She also thinks she has got a UTI but denies any fever or chills.?? Now her back pain is radiating to the bottom of the feet and she is scheduled to see neurology in July. Review of Systems: Constitutional:?No??fevers,?No??chills,?No??sweats Eye:?No??recent visual problems ENT:?No??ear pain,?No??nasal congestion,?No??sore throat Respiratory:?No??shortness of breath,?No??cough Cardiovascular:?No??Chest pain,?No??palpitations,?No??syncope Gastrointestinal:?Nonausea,?No??vomiting,?No??diarrhea Genitourinary:?No??hematuria Clemente/Lymph:?No??bruising tendency,?No??swollen lymph glands Endocrine:?No??excessive thirst,??No??excessive hunger Musculoskeletal:??Positive for??back pain,??No??neck pain,??Positive for??joint pain,??No??muscle pain,??No??decreased range of motion Integumentary:?No??rash,?No??pruritus,?No??abrasions Neurologic: Alert & oriented X 4 Psychiatric:?No??anxiety,?No??depression Physical Exam Vitals & Measurements HR:??68??(Peripheral)?? RR:??16?? BP:??159/86?? SpO2:??98%?? HT:??157.5??cm?? WT:??89.91??kg?? BMI:??36.24?? Pain Score:??8?? O2 Therapy:??Room air?? 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 Discharge Condition Discharge Discharge Disposition Discharged in a stable condition Patient Education Chronic Migraine Headache Follow Up With When Contact Information Hermes Ramirez MD Within 1 month [facility], [address] [place] [address]- Additional Instructions: Medication Reconciliation Unchanged [...] Medication Administration Given Benadryl, 50 mg, Intramuscular Decadron, 4 mg, Intramuscular morphine, 2 mg, Intramuscular Allergies NSAIDs Toradol??(Kidney failure as a complication of care) aspirin??(Medication interaction) azithromycin??(Unknown) codeine??(Unknown, Itching) gentamicin morphine??(redness, Itching) erythromycin??(Medication interaction) Social History Alcohol Never Electronic Cigarette/Vaping Electronic Cigarette Use: Never. Substance Use Never Tobacco Current everyday tobacco user Tobacco Use:.- Comments: Pt states that she smokes half a pack a day. Family History Cancer: Mother. Lab Results UA Macroscopic?? LATEST RESULTS?? HISTORICAL RESULTS?? Urine Srce?? 02/06/24 16:24?? Clean Catch?? 10/31/23?? Clean Catch?? Urine Volume?? 02/06/24 16:24?? 12?? 10/31/23?? 12?? UA Color?? 02/06/24 16:24?? Yellow?? 10/31/23?? Yellow?? UA Appear?? 02/06/24 16:24?? Clear?? 10/31/23?? Clear?? UA Glucose?? 02/06/24 16:24?? Normal?? 10/31/23?? Normal?? UA Bili?? 02/06/24 16:24?? Negative?? 10/31/23?? Negative?? UA Ketones?? 02/06/24 16:24?? Negative?? 10/31/23?? Negative?? UA Spec Grav?? 02/06/24 16:24?? 1.015?? 10/31/23?? 1.010?? UA Blood?? 02/06/24 16:24?? Negative?? 10/31/23?? Negative?? UA pH?? 02/06/24 16:24?? 5.0?? 10/31/23?? 6.0?? UA Protein?? 02/06/24 16:24?? Negative?? 10/31/23?? Negative?? UA Urobilinogen?? 02/06/24 16:24?? Normal?? 10/31/23?? Normal?? UA Nitrite?? 02/06/24 16:24?? Negative?? 10/31/23?? Negative?? UA Leuk Est?? 02/06/24 16:24?? Negative?? 10/31/23?? Negative?? UA Culture Ind?.?? 02/06/24 16:24?? Not Indicated?? 10/31/23?? Not Indicated? UA Microscopic?? LATEST RESULTS?? HISTORICAL RESULTS?? UA WBC?? 02/06/24 16:24?? 0-5?? 10/31/23?? None?? UA RBC?? 02/06/24 16:24?? None?? 10/31/23?? None?? UA Squam Epithelial?? 02/06/24 16:24?? Few?? 10/31/23?? Occasional?? UA Yeast?? 02/06/24 16:24?? Occasional Abnormal?? 10/31/23?? None Seen?? UA Felch Yeast?? 02/06/24 16:24?? Occasional Abnormal? UA Mucous?? 02/06/24 16:24?? None Seen?? 10/31/23?? None Seen?? UA Bacteria?? 02/06/24 16:24?? Occasional Abnormal?? 10/31/23?? Occasional? Attending Attestation Discharged in a stable condition Electronically Signed on 02/06/2024 16:54 VACUUM CLOSING MACHINE OPERATOR Felicia Roach MD Patient Care team information Care Team Personnel Name: Jessee Jones ANALOG CIRCUIT DESIGNER Position: Physician Member Role: Nurse Practitioner Address: [address] [facility], [address] [place] [address]- Name: Latoya Marquez ANALOG CIRCUIT DESIGNER Position: Physician Member Role: Nurse Practitioner Address: [address] [place] [address]- Name: Leonila Gonzalez ANALOG CIRCUIT DESIGNER Position: Physician Member Role: Nurse Practitioner Address: [address] [place] [address] Name: Beth Brandt ANALOG CIRCUIT DESIGNER Position: Physician Member Role: Nurse Practitioner Address: [address] [place] [address] [place] [address] Name: Hermes Ramirez MD Position: Physician Member Role: Informed Provider Address: [address] [facility], [address] [place] [address]- Name: Pillo Moe ANALOG CIRCUIT DESIGNER Position: Physician Member Role: Nurse Practitioner Address: [address] [facility], [address] [facility] Care Team Related Persons Name: STACIA JONES Name: ROBYN JAMA Name: NAIF CHOI Name: MADY CHEN Name: MADY CHEN Insurance Providers Guarantor name: MISHA JACKSON Health Plan Information #: 1 Payer: [employer] MGD C[employer] Member Number: [id number] Policy Number: NA Health Plan Information #: 2 Payer: [employer] APPROVED Member Number: [id number] Policy Number: MAGGIE Health Plan Information #: 3 Payer: MISC Workers Comp Member Number: NA Policy Number: NA
--- OUTSIDE RECORDS SUMMARY | 2024-03-20 11:38 | XMS_ITS | Continuity of Care Document ---
Author Organization [facility] Address [address] [place] [address] Care Team Providers Care Inspector Outside Steam Distribution Name Role Phone Hermes Ramirez Primary Care Physician [phone] Encounter [place] Date(s): 03/11/21 - 03/11/[address] [address] Encounter Diagnosis Gout(Discharge Diagnosis) - 03/11/21 Migraine headache(Discharge Diagnosis) - 03/11/21 Discharge Disposition: Home or Self Care Attending [...] FOR ANXIETY Start Date: 12/18/20 Status: Ordered Medrol 4 mg oral tablet 1 packets, Oral, Daily, as directed on package labeling, X 6 days, # 21 tab, 0 Refill(s), 03/17/21 22:09:00 INFORMATION BROKER, Pharmacy: [place], [place], 157, cm, 03/11/21 22:07:00 INFORMATION BROKER, Height/Length Dosing, 77, kg, 03/11/21 22:07:00 INFORMATION BROKER, Weight Dosing Start Date: 03/11/21 Stop Date: 03/17/21 Status: Ordered Metoprolol Tartrate 25 mg oral tablet 25 mg = 1 tab, Oral, BID, # 180 tab, 3 Refill(s), Pharmacy: [place], [place], 157, cm, 10/22/20 21:26:00 CDT, Height/Length Dosing, 74, kg, 10/22/20 21:26:00 CDT, Weight Dosing Start Date: 12/18/20 Status: Ordered Pepcid 20 mg oral tablet 20 mg = 1 tab, Oral, BID, 0 Refill(s) Start Date: 09/29/20 Status: Ordered Retin-A 0.05% topical cream 1 sanjiv, Topical, every day at bedtime, # 45 g, 2 Refill(s), Pharmacy: [place], [place], 157.48, cm, 08/18/20 12:26:00 CDT, Height/Length [...] from Oropharyngeal Swab collected on 25-JAN-2021 10:43:00 INFORMATION BROKER tested positive for COVID-19. Procedures Procedure Date Related Diagnosis Body Site Status Bladder washout 12/14/20 Completed Kidney transplant 05/13/20 Complet ed Tx - Liver transplantation 05/08/20 Completed delivery Complet ed cyst removal from breast Completed Hernia Completed liver transplant Complete d Vital Signs Most recent to oldest [Reference Range]: 1 Peripheral Pulse Rate [60-100 bpm] 99 bp m (03/11/21 9:53 PM) Respiratory Rate [12-24 br/min] 20 br/mi n (03/11/21 9:53 PM) Blood Pressure [90-140/60-90 mmHg] 155/9 2mmHg *HI* (03/11/21 9:53 PM) Weight 77.00 kg (03/11/21 9:53 PM) Weight Dosing 77.00 kg (03/11/21 10:07 PM) Height 157.000 cm (03/11/21 9:53 PM) Height/Length Dosing 157.000 cm (03/11/21 10:07 PM) Body Mass Index Estimated 31 (03/11/21 9:53 PM) Social History Social History Type Response Smoking Status 5-9 cigarettes (betw een 1/4 to 1/2 pack)/day in last 30 days entered on: 08/18/20 Sex Hospital Discharge Instructions Patient Education 03/11/2021 22:07:33 Migraine Headache Migraine Headache A migraine headache [...] these instructions at home: Medicines ??? Take vorl-nqf-psatecr and prescription medicines only as told by your health care provider. ??? Ask your health care provider if the medicine prescribed to you: ??? Requires you to avoid driving or using heavy machinery. ??? Can cause constipation. You may need to take these actions to prevent or treat constipation: ??? Drink enough fluid to keep your urine pale yellow. ??? Take mzyn-pti-gyjpibq or prescription medicines. ??? Eat foods that [...] provider. Document Revised: 06/28/2019 Document Reviewed: 04/18/2019 [employer] Patient Education ?? 2020 [employer] 03/11/2021 22:07:22 Gout, Vtge-yp-Xfri Gout Gout is painful swelling of your joints. Gout is a type of arthritis. It is caused by having too much uric acid in your body. Uric acid is a chemical that is made when your body breaks down substances called purines. If your body has too much uric acid, sharp crystals can form and build up in your joints. This causes pain and swelling. Gout attacks can happen quickly and be very painful (acute gout). Over time, the attacks can affectmore joints and happen more often (chronic gout). What are the causes? Too much uric acid in your blood. This can happen because: ??? Your kidneys do not remove enough uric acid from your blood. ??? Your body makes too much uric acid. ??? You eat too many foods that are high in purines. These foods include organ meats, some seafood,and beer. ??? Trauma or stress. What increases the risk? Having a family history of gout. ??? Being male and middle-aged. ??? Being female and having gone through menopause. ??? Being very overweight (obese). ??? Drinking alcohol, especially beer. ??? Not having enough water in the body (being dehydrated). ??? Losing weight too quickly. ??? Having an organ transplant. ??? Having lead poisoning. ??? Taking certain medicines. ??? Having kidney disease. ??? Having a skin condition called psoriasis. What are the signs or symptoms? An attack of acute gout usually happens in just one joint. The most common place is the big toe. Attacks often start at night. Other joints that may be affected include joints of the feet, ankle, knee, fingers, wrist, or elbow. Symptoms of an attack may include: ??? Very bad pain. ??? Warmth. ??? Swelling. ??? Stiffness. ??? Shiny, red, or purple skin. ??? Tenderness. The affected joint may be very painful to touch. ??? Chills and fever. Chronic gout may cause symptoms more often. More joints may be involved. You may also have white oryellow lumps (tophi) on your hands or feet or in other areas near your joints. How is this treated? Treatment for this condition has two phases: treating an acute attack and preventing future attacks. ??? Acute gout treatment may include: ??? NSAIDs. ??? Steroids. These are taken by mouth or injected into a joint. ??? Colchicine. This medicine relieves pain and swelling. It can be given by mouth or through an IVtube. ??? Preventive treatment may include: ??? Taking small doses of NSAIDs or colchicine daily. ??? Using a medicine that reduces uric acid levels in your blood. ??? Making changes to your diet. You may need to see a food expert (dietitian) about what to eat and drink to prevent gout. Follow these instructions at home: During a gout attack ??? If told, put ice on the painful area: ??? Put ice in a plastic bag. ??? Place a towel between your skin and the bag. ??? Leave the ice on for 20 minutes, 2???3 times a day. ??? Raise (elevate) the painful joint above the level of your heart as often as you can. ??? Rest the joint as much as possible. If the joint is in your leg, you may be given crutches. ??? Follow instructions from your doctor about what you cannot eat or drink. Avoiding future gout attacks ??? Eat a low-purine diet. Avoid foods and drinks such as: ??? Liver. ??? Kidney. ??? Anchovies. ??? Asparagus. ??? Melton. ??? Mushrooms. ??? Mussels. ??? Beer. ??? Stay at a healthy weight. If you want to lose weight, talk with your doctor. Do not lose weighttoo fast. ??? Start or continue an exercise plan as told by your doctor. Eating and drinking ??? Drink enough fluids to keep your pee (urine) pale yellow. ??? If you drink alcohol: ??? Limit how much you use to: ??? 0???1 drink a day for women. ??? 0???2 drinks a day for men. ??? Be aware of how much alcohol is in your drink. In the [place] one drink equals one 12 oz bottle of beer (355 mL), one 5 oz glass of wine (148 mL), or one 1?? oz glass of hard liquor (44 mL). General instructions ??? Take eefp-jxb-frrxmal and prescription medicines only as told by your doctor. ??? Do not drive or use heavy machinery while taking prescription pain medicine. ??? Return to your normal activities as told by your doctor. Ask your doctor what activities are safe for you. ??? Keep all follow-up visits as told by your doctor. This is important. Contact a doctor if: ??? You have another gout attack. ??? You still have symptoms of a gout attack after 10 days of treatment. ??? You have problems (side effects) because of your medicines. ??? You have chills or a fever. ??? You have burning pain when you pee (urinate). ??? You have pain in your lower back or belly. Get help right away if: ??? You have very bad pain. ??? Your pain cannot be controlled. ??? You cannot pee. Summary ??? Gout is painful swelling of the joints. ??? The most common site of pain is the big toe, but it can affect other joints. ??? Medicines and avoiding some foods can help to prevent and treat gout attacks. This information is not intended to replace advice given to you by your health care provider. Make sure you discuss any questions you have with your health care provider. Document Revised: 09/26/2018 Document Reviewed: 09/26/2018 [employer] Patient Education ?? 2020 [employer] Follow Up Care 03/11/2021 21:53:28 With:Hermes Ramirez MD Address: [address] [place] [address], [address] [place] [address]- When:5 to 7 days
--- OUTSIDE RECORDS SUMMARY | 2024-03-20 11:38 | XMS_ITS | Continuity of Care Document ---
Author Organization [facility] Address [address] [place] [address] Care Team Providers Care Welding Tester Name Role Phone Hermes Ramirez Primary Care Physician [phone] Encounter [facility] MCGRAW [id number] Date(s): 11/11/22 - 12/14/[address] [address] [place] Encounter Diagnosis Dorsalgia, unspecified(Final) - Discharge Disposition: Home or Self Care Attending Physician: Lida Spence MD Referring Physician: Lida Spence MD Allergies, Adverse Reactions, [...] Daily, # 30 tab, 0 Refill(s), Pharmacy: [place], [place], 157, cm, 09/10/22 15:23:00 CDT, Height/Length Dosing, 86.1, kg, 09/10/22 15:23:00 CDT, Weight Dosing Start Date: 10/11/22 Status: Ordered amoxicillin 500 mg oral capsule 1,000 mg = 2 cap, Oral, BID, X 7 days, # 28 cap, 0 Refill(s), 12/17/22 1:01:00 AM CDT, Pharmacy: [place], [place], 157, cm, 12/10/22 0:56:00 CDT, Height/Length [...] BID, # 60 cap, 0 Refill(s), Pharmacy: [place], [place], 157, cm, 09/10/22 15:23:00 CDT, Height/Length [...] 0 Refill(s), 12/17/22 1:35:00 AM CDT, Pharmacy: [facility], [place], 157, cm, 12/10/22 0:56:00 CDT, Height/Length [...] everyday tob acco user Tobacco Use:. Sex Physical therapy Progress note * Annalisa Avila M: PERFORM Event Display: Physical Therapy Progress Note Authored Date: * Annalisa Avila M: PERFORM Event Display: Physical Therapy Progress Note Authored Date: Patient Care team information Care Team Personnel Name: Jessee Jones PIECE MARKER SMALL ARMS Position: Physician Member Role: Nurse Practitioner Address: Address: [address] [facility], [address] [place] [address]- Name: Latoya Marquez PIECE MARKER SMALL ARMS Position: Physician Member Role: Nurse Practitioner Address: Address: [address] [place] [address]- Name: Leonila Gonzalez PIECE MARKER SMALL ARMS Position: Physician Member Role: Nurse Practitioner Address: Address: [address] [place] [address]- Name: Beth Brandt PIECE MARKER SMALL ARMS Position: Physician Member Role: Nurse Practitioner Address: Address: [address] Name: Hermes Ramirez MD Position: Physician Member Role: Informed Provider Address: Address: [address] [facility], [address] [place] [id number]- Name: Pillo Moe PIECE MARKER SMALL ARMS Position: Physician Member Role: Nurse Practitioner Address: Address: [address] [facility], [address] [facility] Care Team Related Persons Name: STACIA JONES Address: Home [address] [place], [place] [id number] Name: ROBYN JAMA
--- OUTSIDE RECORDS SUMMARY | 2024-03-20 11:38 | XMS_ITS | Continuity of Care Document ---
Author Organization [facility] Address [address] [place] [address] Care Team Providers Care Membership Counselor Name Role Phone Hermes Ramirez Primary Care Physician [phone] Encounter [facility] [facility] [id number] Date(s): 12/11/19 - 12/11/19 [place] [address] [place] [address]- Encounter Diagnosis Hx of migraine headaches(Discharge Diagnosis) - 12/11/19 Headache(Final) - Migraine, unspecified, not intractable, without status migrainosus(Final) - Unspecified otitis externa, right ear(Final) - Pain in throat(Final) - Discharge Disposition: Home or Self Care Attending Physician: Shawna Puckett MD Admitting Physician: Shawna Puckett MD Allergies, Adverse Reactions, Alerts Substance Reaction Severity Status erythromycin Medication interaction Activ e aspirin Medication interaction Activ e Toradol Kidney failure as a complication of care Active Assessment and Plan Future Scheduled Tests Laboratory* COVID-19 Testing Send Out - [place] State 10/25/19 Functional Status 12/11/19 Family Member Travel History No recent t [...] pain, # 2.5 mL, 0 Refill(s), Pharmacy: [facility]#[id number] Start Date: 12/04/19 Stop Date: 01/03/20 Status: Ordered Diflucan 150 mg oral tablet 150 mg = 1 tab, Oral, Once, # 1 tab, 1 Refill(s), [facility]acy: [id number] Start Date: 12/02/19 Status: Ordered Metoprolol Succinate ER 25 mg oral tablet, extended release 25 mg = 1 tab, Oral, BID, TAKE 1 TABLET BY MOUTH TWICE A DAY, # 60 tab, 5 Refill(s), [id number] Start Date: 10/09/19 Stop Date: 04/06/20 Status: Ordered Prograf 2 mg =, Oral, every 12 hr, 0 Refill(s) Start Date: 12/18/18 Status: Ordered promethazine 25 mg oral tablet 25 mg =, Oral, every 6 hr, PRN nausea/vomiting, # 20 tab, 0 Refill(s), Pharmacy: [id number] Start Date: 04/28/19 Stop Date: 05/03/19 Status: Ordered sodium bicarbonate 650 mg oral tablet 1,300 mg = 2 tab, Oral, TID, # 60 tab, 0 Refill(s) Start Date: 12/18/18 Status: Ordered tiZANidine 2 mg oral capsule 2 mg = 1 cap, Oral, every 8 hr, PRN as needed for muscle spasm, # 90 cap, 0 Refill(s), [id number] Start Date: 09/27/19 Stop Date: 10/27/19 [...] Complete d Results Laboratory List Name Date Influenza A/B 12/11/19 Strep A Screen 12/11/19 Most recent to oldest [Reference Range]: 1 Influenza A [Negative] Negative (12/11/19 3:23 PM) Influenza B [Negative] Negative (12/11/19 3:23 PM) Streptococcus A [Negative] Negative (12/11/19 3:23 PM) Vital Signs Most recent to oldest [Reference Range]: 1 Temperature Oral [35.8-37.3 Deg C] 37.1 Deg C (12/11/19 3:00 PM) Peripheral Pulse Rate [60-100 bpm] 73 bp m (12/11/19 3:00 PM) Respiratory Rate [14-20 br/min] 20 br/mi n (12/11/19 3:00 PM) Blood Pressure [90-140/60-90 mmHg] 143/9 2mmHg *HI* (12/11/19 3:00 PM) Weight Dosing 77.00 kg (12/11/19 3:07 PM) Weight Estimated 77.00 kg (12/11/19 3:00 PM) Height/Length Dosing 157.000 cm (12/11/19 3:07 PM) Body Mass Index Estimated 31 (12/11/19 3:00 PM) Height/Length Estimated 157.000 cm (12/11/19 3:00 PM) Social History Social History Type Response Smoking Status 4 or less cigarettes (less than 1/4 pack)/day in last 30 days entered on: 07/16/19 Sex Hospital Discharge Instructions Patient Education 12/11/2019 15:49:04 Migraine Headache, Cwjw-[id number] Migraine Headache A migraine headache is a [...] these instructions at home: Medicines ??? Take oksq-thz-xilwxbr and prescription medicines only as told by your doctor. ??? Ask your doctor if the medicine prescribed to you: ??? Requires you to avoid driving or using heavy machinery. ??? Can cause trouble pooping (constipation). You may need to take these steps to prevent or treat trouble pooping: ??? Drink enough fluid to keep your pee (urine) pale yellow. ??? Take opvt-bmi-tftbwno or prescription medicines. ??? Eat foods that [...] have with your health care provider. Document Released: 12/13/2008 Document Revised: 06/28/2019 Document Reviewed: 04/18/2019 [employer] Patient Education ?? 2020 [employer]
--- OUTSIDE RECORDS SUMMARY | 2024-03-20 11:38 | XMS_ITS | Continuity of Care Document ---
Author Organization [facility] Address [address] [place] [address] Care Team Providers Care Blind Slat Stapling Machine Operator Name Role Phone Hermes Ramirez Primary Care Physician Encounter ONOFRE MCGRAW [id number] Date(s): 06/10/20 - 06/10/20 [place] [address] [place] [address]- [place] Discharge Disposition: Home or Self Care Attending Physician: Torito Duncan MD Admitting Physician: Torito Duncan MD Allergies, Adverse Reactions, Alerts Substance Reaction Severity Status erythromycin Medication interaction Activ e aspirin Medication interaction Activ e Toradol Kidney failure as a complication of care Active Assessment and Plan Diagnostic Tests Pending * COVID-19 Testing Send Out - [place] State 06/10/20 Future Scheduled Tests Laboratory* COVID-19 Testing Send Out - [place] State 10/25/19 Immunizations Given and Recorded Vaccine Date Status Refusal Reason hepatitis B adult vaccine 11/10/17 Recorded hepatitis B adult vaccine 10/09/17 Recorded hepatitis A adult vaccine 10/09/17 Recorded tetanus/diphth/pertuss (Tdap) adult/adol 05/10/17 Recorded tetanus/diphth/pertuss (Tdap) adult/adol 03/20/17 Recorded tetanus/diphth/pertuss (Tdap) adult/adol 05/25/12 Recorded Medications Lasix 20 mg oral tablet 20 mg = 1 tab, Oral, Daily, # 5 tab, 0 Refill(s), Pharmacy: [facility]#[id number] Start Date: 04/14/20 Stop Date: 04/19/20 Status: [...] nausea/vomiting, # 20 tab, 0 Refill(s), Pharmacy: [facility]#[id number] Start Date: 04/28/19 Stop Date: 05/03/19 Status: [...] d Social History Social History Type Response Smoking Status 4 or less cigarettes (less than 1/4 pack)/day in last 30 days entered on: 04/08/20 Sex
--- OUTSIDE RECORDS SUMMARY | 2024-03-20 11:39 | XMS_ITS | Continuity of Care Document ---
Author Organization [facility] Address [address] [place] [address]- Care Team Providers Care Wheat Buyer Name Role Phone Hermes Ramirez Primary Care Physician [phone] Encounter ONOFRE Date(s): 04/06/23 - 04/06/23 [facility] [place] [address] [place] [address]- Encounter Diagnosis Pain of right scapula(Discharge Diagnosis) - 04/06/23 UTI (urinary tract infection)(Discharge Diagnosis) - 04/06/23 Burning with urination(Discharge Diagnosis) - 04/06/23 Discharge Disposition: Home or Self Care Attending [...] Urine Culture 04/06/23 * Urine Culture 10/31/22 * Clostridium difficile [...] Daily, # 30 tab, 11 Refill(s), Pharmacy: [place], [place], [address], cm, 01/04/23 15:03:00 CDT, Height/Length Dosing, 81.65, kg, 01/04/23 15:03:00 CDT, Weight Dosing Start Date: 01/11/23 Status: Ordered aspirin 81 mg oral delayed release tablet 81 mg = 1 tab, Oral, Daily, # 30 tab, 0 Refill(s) Start Date: 04/05/21 Status: Ordered Bactrim DS 800 mg-160 mg oral tablet 1 tab, Oral, BID, # 10 tab, 0 Refill(s), Pharmacy: [place], [place], [address], cm, 04/06/23 14:44:00 DROPHAMMER OPERATOR, Height, 85.28, kg, 04/06/23 14:48:00 DROPHAMMER OPERATOR, Weight Dosing Start Date: 04/06/23 Stop Date: [...] BID, # 60 cap, 11 Refill(s), Pharmacy: [place], [place], [address], cm, 01/04/23 15:03:00 CDT, Height/Length [...] Diagnosis Body Site Status Screening Pap Smear; Kelyi james, Preparing And Conveyance Of Cervical/Vaginal Smear To Laboratory 1 07/2022 Completed Examining eye 2021 Completed Bladder washout 12/14/20 Completed Kidney transplant 05/13/20 Complet ed Tx - Liver transplantation 05/08/20 Completed Mammogram 2 2020 Completed delivery Complet ed cyst removal from breast Completed Hernia Completed liver transplant Complete d 1normal 2normal Results Laboratory List Name Date Urine Dipstick POC 04/06/23 Influenza A/B (Keyonna) POCT 04/06/23 SARS-CoV or CoV-2 (COVID-19) Antigen (Bi nax) POCT 04/06/23 Rapid Strep POC 04/06/23 Most recent to oldest [Reference Range]: 1 Protein Urine Dipstick POC 3+ (300 mg/dl ) (04/06/23 3:36 PM) Rapid Strep POC Result Negative (04/06/23 2:49 PM) Ketones Urine Dipstick POC 2+ (04/06/23 3:36 PM) Employed in healthcare? No *NA* (04/06/23 2:58 PM) Symptomatic as defined by CDC? Yes *NA* (04/06/23 2:58 PM) Date of onset (Lab) 05-APR-2023 *NA* (04/06/23 2:58 PM) Hospitalized due to COVID-19? No *NA* (04/06/23 2:58 PM) In ICU? No *NA* (04/06/23 2:58 PM) Group care resident? No *NA* (04/06/23 2:58 PM) status? Not *NA* (04/06/23 2:58 PM) SARS-CoV or CoV-2(COVID-19)Ag(Binax)POCT [Negative] Negative (04/06/23 2:58 PM) Leukocytes Urine Dipstick Large (04/06/23 3:36 PM) Nitrite Urine Dipstick Positive (04/06/23 3:36 PM) Urobilinogen Urine Dipstick 0.2 mg/dl (04/06/23 3:36 PM) pH Urine Dipstick 6.5 (04/06/23 3:36 PM) Blood Urine Dipstick Small (04/06/23 3:36 PM) Specific [place] Urine Dipstick 1.020 (04/06/23 3:36 PM) Bilirubin Urine Dipstick Negative (04/06/23 3:36 PM) Glucose Urine Dipstick Negative (04/06/23 3:36 PM) Urine Color Urine Dipstick Yellow (04/06/23 3:36 PM) Urine Appearance Urine Dipstick Cloudy (04/06/23 3:36 PM) Influenza A (Keyonna) POCT Negative *NA* (04/06/23 3:00 PM) Influenza B ([place]onna) POCT Negative *NA* (04/06/23 3:00 PM) Vital Signs Most recent to oldest [Reference Range]: 1 Temperature Tympanic [36.6-38.1 Deg C] 3 6.6 Deg C (04/06/23 2:44 PM) Peripheral Pulse Rate [60-100 bpm] 82 bp m (04/06/23 2:44 PM) Respiratory Rate [12-24 br/min] 18 br/mi n (04/06/23 2:44 PM) Blood Pressure [90-140/60-90 mmHg] 132/7 2mmHg (04/06/23 2:44 PM) Mean Arterial Pressure, Cuff [70-110 mmH g] 92 mmHg (04/06/23 2:44 PM) Weight 85.28 kg (04/06/23 2:44 PM) Weight Measured (lbs) 188.01 lb (04/06/23 2:44 PM) Weight Dosing 85.280 kg (04/06/23 2:44 PM) Height 157.48 cm (04/06/23 2:44 PM) Height/Length Measured (inches) 62 inch (04/06/23 2:44 PM) BSA Measured 1.93 m2 (04/06/23 2:44 PM) Body Mass Index 34.39 kg/m2 (04/06/23 2:44 PM) Social History Social History Type Response Tobacco Current everyday tob acco user Tobacco Use:. 1 Sex 1Pt states that she smokes half a pack a day. Physician Outpatient Note * Hermes Ramirez MD: PERFORM Event Display: Office Clinic Note Physician Authored Date: [id number] MISHA JACKSON :1980 Age:42 years Sex:Female Visit Date:04/06/2023 Primary Care Physician: Hermes Ramirez MD Chief Complaint Pt here with cough, congestion, headache, nausea and not felling well x one day. Pt states her whole body hurts History of Present Illness MISHA JACKSON??is a??42 Years??old??Female??presenting today with??Chief Complaint: Pt here with cough, congestion, headache, nausea and not felling well x one day. Pt states her whole body hurts (04/06/23 14:44:00).?? +urinary freq.?? No dysuria.?? The main reason she is here is because of right scapular pain over the last??month to 6 weeks. ??No injury predated this.?? It is painful to touch over the right scapula.?? She does not have a lot of pain with??grasping or lifting overhead??butdoes occasionally.?? She did have a chest x-ray on March 20 that was clear. Review of Systems Constitutional:?No??fevers,?No??chills Eye:?No??conjunctivitis ENT:?No??ear pain,?Positive for??nasal congestion,?No??sore throat Respiratory:?No??shortness of breath,?Positive for??cough Cardiovascular:?No??Chest pain Gastrointestinal:?Nonausea,?No??vomiting,?No??diarrhea,??No??abd pain. Clemente/Lymph:?No??swollen lymph glands Integumentary:?No??rash Neurologic:?No??mental status changes Physical Exam Vitals & Measurements T:??36.6?C ??(Tympanic)?? HR:??82??(Peripheral)?? RR:??18?? BP:??132/72?? SpO2:??98%?? HT:??157.48??cm?? WT:??85.28??kg?? BMI:??34.39?? Pain Score:??5?? BSA:??1.93?? General:??Alert??and oriented,??No Acute Distress. Eyes: conjunctiva??Clear HENT:??Normocephalic??, tympanic membranes??Normal, ear canal??Normal, nares??Clear, pharynx??Clear, frontal sinus??Non-Tender, maxillary sinus??Non-Tender. Neck:??Negative??anterior cervical adenopathy,??Negative??posterior cervical adenopathy. Cardiovascular:??Regular??rate and rhythm,??Normal??peripheral perfusion. Respiratory: Lungs??Clear to Auscultation, respirations??Non-Labored. Abd: Soft, nontender.?? Positive bowel sounds. Skin:??No Rash,??No Palor.?? MS:??Pain on palpation of the right scapula. ??No rash in this area.?? Range of motion of the shoulder full and rotator cuff is strong. Depression Screen?? PHQ 2?? Little Interest - Pleasure in Activities: Not at all Feeling Down, Depressed, Hopeless: Not at all Initial Depression Screen Score: 0 Score Assessment/Plan 1.??Pain of right scapula??M89.8X1 I recommended heat/ice, topical??therapy, and physical therapy.?? Will order. Ordered: Bactrim DS 800 mg-160 mg oral tablet, 1 tab, Oral, BID, # 10 tab, 0 Refill(s), Pharmacy: [facility] [place], [place], [address], cm, 04/06/23 14:44:00 DROPHAMMER OPERATOR, Height, 85.28, kg, 04/06/23 14:48:00 DROPHAMMER OPERATOR, Weight Dosing Physical Therapy Outpatient Evaluation and Treatment, 04/06/23, Evaluate, treat and implement plan of care, right scapula pain/strain, Order for Future Visit, Pain of right scapula ?? 2.??UTI (urinary tract infection)??N39.0 Will tx with antibiotic as below and cx urine. ??RTC with worsening fever, abd/back pain, vomiting,or other questions.?? Ordered: Bactrim DS 800 mg-160 mg oral tablet, 1 tab, Oral, BID, # 10 tab, 0 Refill(s), Pharmacy: [place], [place], [address], cm, 04/06/23 14:44:00 DROPHAMMER OPERATOR, Height, 85.28, kg, 04/06/23 14:48:00 DROPHAMMER OPERATOR, Weight Dosing ?? Burning with urination??R30.0 Ordered: Urine Culture, Urine, Clean Catch, Routine collect, RT - Routine, 04/06/23, Once, Nurse collect, Burning with urination, Order for future visit ?? Future Orders Urine Culture, Urine, Clean Catch, Routine collect, RT - Routine, 04/06/23, Once, Nurse collect, Burning with urination, Order for future visit Problem List/Past Medical History Ongoing Acne Anxiety [...] (2020)??? delivery???cyst removal from [facility]???Hernia???liver transplant Medications amLODIPine 5 mg oral tablet, 5 mg= 1 tab, Oral, Daily, 11 refills aspirin 81 mg oral delayed release tablet, 81 mg= 1 tab, Oral, Daily Bactrim DS 800 mg-160 mg oral tablet, 1 tab, Oral, BID gabapentin 300 mg oral capsule Gengraf 25 [...] Lab Results Test Name Test Result Date/Time Rapid Strep POC Result Negative 04/06/2023 14:49 DROPHAMMER OPERATOR SARS-CoV or CoV-2(COVID-19)Ag(Binax)POCT NEG 04/06/2023 14:58 DROPHAMMER OPERATOR Urine Color Urine Dipstick Yellow 04/06/2023 15:36 DROPHAMMER OPERATOR Urine Appearance Urine Dipstick Cloudy 04/06/2023 15:36 DROPHAMMER OPERATOR pH Urine Dipstick 6.5 04/06/2023 15:36 DROPHAMMER OPERATOR Specific [place] Urine Dipstick 1.020 04/06/2023 15:36 DROPHAMMER OPERATOR Blood Urine Dipstick 1+ Small 04/06/2023 15:36 DROPHAMMER OPERATOR Protein Urine Dipstick POC 3+ (300 mg/dl) 04/06/2023 15:36 DROPHAMMER OPERATOR Nitrite Urine Dipstick Positive 04/06/2023 15:36 DROPHAMMER OPERATOR Leukocytes Urine Dipstick 3+ Large 04/06/2023 15:36 DROPHAMMER OPERATOR Bilirubin Urine Dipstick Negative 04/06/2023 15:36 DROPHAMMER OPERATOR Urobilinogen Urine Dipstick 0.2 mg/dl 04/06/2023 15:36 DROPHAMMER OPERATOR Ketones Urine Dipstick POC 2+ 04/06/2023 15:36 DROPHAMMER OPERATOR Glucose Urine Dipstick Negative 04/06/2023 15:36 DROPHAMMER OPERATOR Electronically Signed on 04/06/23 03:37 PM Hermes Ramirez MD Patient Care team information Care Team Personnel Name: Jessee Jones TEXTILE TECHNICAL OFFICER Position: Physician Member Role: Nurse Practitioner Address: Address: [address] [place] [address], [address] Name: Latoya Marquez TEXTILE TECHNICAL OFFICER Position: Physician Member Role: Nurse Practitioner Address: Address: [address] [place] [address] Name: Leonila Gonzalez TEXTILE TECHNICAL OFFICER Position: Physician Member Role: Nurse Practitioner Address: Address: [address] [place] [address]- Name: Beth Brandt TEXTILE TECHNICAL OFFICER Position: Physician Member Role: Nurse Practitioner Address: Address: [address] [place] [address] [place] [address] Name: Hermes Ramirez MD Position: Physician Member Role: Primary Care Physician Address: Address: [address] [place] [address], [address] [place] [address]- Name: Anamika Gore MD Position: Physician - Women's Health Member Role: Informed Provider Name: Pillo Moe NP Position: Physician Member Role: Nurse Practitioner Address: Address: [address] [place] [address], [address] [facility] Care Team Related Persons Name: STACIA JONES Address: Home [address], [place] [id number] Name: ROBYN JAMA
--- OUTSIDE RECORDS SUMMARY | 2024-03-20 11:39 | XMS_ITS | Continuity of Care Document ---
Author Organization [facility] Address [address] [place] [address] Care Team Providers Care Kiln Maintenance Name Role Phone Hermes Ramirez Primary Care Physician Encounter IBERIA MARILUZ [id number] Date(s): 07/06/23 - 07/06/[address] [address]- Encounter Diagnosis Chronic back pain(Discharge Diagnosis) - 07/06/23 Other chronic pain(Discharge Diagnosis) - 07/06/23 Headache, chronic migraine without aura, intractable(Discharge Diagnosis) - 07/06/23 Boil of groin(Discharge Diagnosis) - 07/06/23 Discharge Disposition: Home or Self Care Attending [...] from: Title:ED Provider Note Author:Jesus Khan MD Date:07/06/23 Assessment/Plan 1.??Chronic back pain??M54.9 2.??Boil of groin??L02.224 3.??Headache, chronic migraine without aura, intractable??G43.719 Other chronic pain??G89.29 Orders: clindamycin, 300 mg = 2 cap, Oral, Cap, Once, Antibiotic Indication Skin/soft tissue, abscess/purulent, First Dose: 07/06/23 13:00:00 CDT, Stop Date: 07/06/23 13:00:00 CDT, Physician Stop, Routine Benadryl, 50 mg = 1 mL, Intramuscular, Injection, Once, First Dose: 07/06/23 13:00:00 CDT, Stop Date: 07/06/23 13:00:00 CDT, Physician Stop, Routine morphine, 4 mg = 1 mL, Intramuscular, Injection, Once, First Dose: 07/06/23 13:00:00 CDT, Stop Date: 07/06/23 13:00:00 CDT, Physician Stop, Routine Phenergan, 25 mg = 1 mL, Intramuscular, Injection, Once, First Dose: 07/06/23 13:00:00 CDT, Stop Date: 07/06/23 13:00:00 CDT, Physician Stop, Routine Prescription for clindamycin 300 m??1 capsule 3 times daily for 10 days. ??Apply heat to affected area.?? Continue other home medications. ??Return to ED if symptoms worsen. Patient Discharge Condition Good Discharge Disposition Discharge home Patient Education Skin Abscess, Eyxg-ct-Wzqv Chronic Migraine Headache, Hogl-lc-Qwfz Follow Up With When Contact Information Hermes Ramirez MD Within 1 month [facility], [address] [place] [address]- ?? Additional Instructions: Future Appointments Future Scheduled [...] Daily, # 30 tab, 11 Refill(s), Pharmacy: [facility] - [place], [place], 157.48, cm, 01/04/23 15:03:00 CDT, Height/Length [...] 0 Refill(s), 07/16/23 12:27:00 PM CDT, Pharmacy: [id number], 157.48, cm, 07/06/23 12:12:00 CDT, Height, 89.36, [...] BID, # 60 cap, 11 Refill(s), Pharmacy: [place], [place], 157.48, cm, 01/04/23 15:03:00 CDT, Height/Length Dosing, 81.65, kg, 01/04/23 15:03:00 CDT, Weight Dosing Start Date: 01/11/23 Status: Ordered pantoprazole 40 mg oral delayed release tablet 1 tab, Oral, Daily, # 90 tab, 0 Refill(s), Pharmacy: [id number], 157.48, cm, 06/07/23 16:07:00 CDT, Height, 89.36, [...] QID, # 360 tab, 0 Refill(s), Pharmacy: [id number], 157.48, cm, 06/07/23 16:07:00 CDT, Height, 89.36, [...] [35.8-37.3 Deg C] 37 De g C (07/06/23 12:12 PM) Peripheral Pulse Rate [60-100 bpm] 72 bp m (07/06/23 12:12 PM) Respiratory Rate [12-24 br/min] 18 br/mi n (07/06/23 12:12 PM) Blood Pressure [90-140/60-90 mmHg] 148/8 9mmHg *HI* (07/06/23 12:12 PM) Mean Arterial Pressure, Cuff [65-140 mmH g] 109 mmHg (07/06/23 12:12 PM) Weight 89.36 kg (07/06/23 12:12 PM) Weight Dosing 89.360 kg (07/06/23 12:12 PM) Height 157.48 cm (07/06/23 12:12 PM) Body Mass Index 36.03 kg/m2 (07/06/23 12:12 PM) Social History Social History Type Response Tobacco Current everyday tob acco user Tobacco Use:. 1 Sex 1Pt states that she smokes half a pack a day. Hospital Discharge Instructions Patient Education 07/06/2023 12:24:33 Skin Abscess, Xezp-qw-Jmpl Skin Abscess A skin abscess is an infected spot of skin. It can have pus in it. An abscess can happen in any part of your body. Some abscesses break open (rupture) on their own. Most keep getting worse unless they are treated. If your abscess is not treated, the infection can spread deeper into your body and blood. This can make you feel sick. What are the causes? Germs that enter your skin. This may happen if you have: ??? A cut or scrape. ??? A wound from a needle or an insect bite. ??? Blocked oil or sweat glands. ??? A problem with the spot where your hair goes into your skin. ??? A fluid-filled sac called a cyst under your skin. What increases the risk? Having problems with how your blood moves through your body. ??? Having a weak body defense system (immune system). ??? Having diabetes. ??? Having dry and irritated skin. ??? Needing to get shots often. ??? Putting drugs into your body with a needle. ??? Having a splinter or something else in your skin. ??? Smoking. What are the signs or symptoms? A firm bump under your skin that hurts. ??? A bump with pus at the top. ??? Redness and swelling. ??? Warm or tender spots. ??? A sore on the skin. How is this treated? You may need to: ??? Put a heat pack or a warm, wet washcloth on the spot. ??? Have the pus drained. ??? Take antibiotics. Follow these instructions at home: Medicines ??? Take ycdr-jkj-ibbnmwt and prescription medicines only as told by your doctor. ??? If you were prescribed antibiotics, take them as told by your doctor. Do not stop taking them even if you start to feel better. Abscess care ??? If you have an abscess that has not drained, put heat on it. Use the heat source that your doctor recommends, such as a moist heat pack or a heating pad. ??? Place a towel between your skin and the heat source. ??? Leave the heat on for 20???30 minutes. ??? If your skin turns bright red, take off the heat right away to prevent baez. The risk of burnsis higher if you cannot feel pain, heat, or cold. ??? Follow instructions from your doctor about how to take care of your abscess. Make sure you: ??? Cover the abscess with a bandage. ??? Wash your hands with soap and water for at least 20 seconds before and after you change your bandage. If you cannot use soap and water, use hand forester silviculture. ??? Change your bandage as told by your doctor. ??? Check your abscess every day for signs that the infection is getting worse. Check for: ??? More redness, swelling, or pain. ??? More fluid or blood. ??? Warmth. ??? More pus or a worse smell. General instructions ??? To keep the infection from spreading: ??? Do not share personal items or towels. ??? Do not go in a hot tub with others. ??? Avoid making skin contact with others. ??? Be careful when you get rid of used bandages or any pus from the abscess. ??? Do not smoke or use any products that contain nicotine or tobacco. If you need help quitting, ask your doctor. Contact a doctor if: ??? You see red streaks on your skin near the abscess. ??? You have any signs of worse infection. ??? You vomit every time you eat or drink. ??? You have a fever, chills, or muscle aches. ??? The cyst or abscess comes back. Get help right away if: ??? You have very bad pain. ??? You make less pee (urine) than normal. This information is not intended to replace advice given to you by your health care provider. Make sure you discuss any questions you have with your health care provider. Document Revised: 10/19/2022 Document Reviewed: 10/19/2022 [employer] Patient Education ?? 2022 [employer]. 07/06/2023 12:24:11 Chronic Migraine Headache, Yrfk-on-Ayxz Chronic Migraine Headache A migraine headache is [...] these instructions at home: Medicines ??? Take tidr-epk-jgvjkru and prescription medicines only as told by [...] Headache and Migraine Patients (CHAMP): headachemigraine.org ??? [place] Migraine Foundation: americanmigrainefoundation.org ??? National Headache Foundation: [...] provider. Document Revised: 08/18/2022 Document Reviewed: 04/22/2020 [employer] Patient Education ?? 2022 [employer]. Follow Up Care 07/06/2023 12:04:25 With:Hermes Ramirez MD Address: [address] [place] [address], [address] [place] [address]- When:1 month Physician Emergency department Note * Jesus Khan MD: PERFORM Event Display: ED Note Physician Authored Date: [id number] MISHA JACKSON :1980 Age:42 years Sex:Female Visit Date:07/06/2023 Primary Care Physician: Hermes Ramirez MD Basic Information Time Seen: Jesus Khan MD / 07/06/2023 12:15 Chief Complaint c/o migraine since 0400, back pain since last night before bed, and a boil on inside of leg X1week.??sharla ph tx. History Of Present Illness: 42 years old??female with history of chronic intractable migraine headaches. ??Comes??complaining of a migraine headache; states woke her up around 4 AM this morning.?? Also has been having back painfor about a week (has degenerative disc disease)??is a chronic problem.?? Patient also mentions that she has a boil in the inner aspect of her left??thigh??that has been going on for a week.?? States she squeezed??some pus few days ago.?? No other complaints. Review of Systems: Constitutional:?No??fevers,?No??chills,?No??sweats;??migraine headache Eye:?No??recent visual problems ENT:?No??ear pain,?No??nasal congestion,?No??sore throat Respiratory:?No??shortness of breath,?No??cough Cardiovascular:?No??Chest pain,?No??palpitations,?No??syncope Gastrointestinal:?Nonausea,?No??vomiting,?No??diarrhea Genitourinary:?No??hematuria Clemente/Lymph:?No??bruising tendency,?No??swollen lymph glands Endocrine:?No??excessive thirst,??No??excessive hunger Musculoskeletal:??Positive for??back pain,??No??neck pain,??No??joint pain,??No??muscle pain,??No??decreased range of motion Integumentary:?No??rash,?No??pruritus,?No??abrasions;??small boil inner aspect left thigh Neurologic: Alert & oriented X 4 Psychiatric:?No??anxiety,?No??depression Physical Exam Vitals & Measurements T:??37?C ??(Oral)?? HR:??72??(Peripheral)?? RR:??18?? BP:??148/89?? SpO2:??98%?? HT:??157.48??cm?? WT:??89.36??kg?? BMI:??36.03?? O2 Therapy:??Room air?? General: Alert and oriented, well nourished,?No??acute distress Eye: PERRL, EOMI,?Normal?conjunctiva HENT: Normocephalic, clear tympanic membranes,?Normal? hearing, moist oral mucosa,?No??scleral icterus,?No??sinus tenderness Neck: Supple, non-tender,?No??carotid bruits,?No??JVD,?No??lymphadenopathy Lungs:??Clear to auscultation?? Respiration:??Non-Labored Heart:?Normal? rate,?Regular??rhythm,?No??murmur,?No??gallop,?No??edema Breast:?No??lumps,?No??bumps,?No??scars,?Normal? nipples Abdomen: Soft, non-tender, non-distended,?Normal? bowel sounds,?No??masses Musculoskeletal:?Normal? range of motion and strength,?No??tenderness,?No??swelling Skin: Skin is warm, dry and pink,?No??rashes,?No??lesions;??has a small boil inner aspect left??upper thigh.?? No??skin redness.?? No??drainage seen at this moment.?? There is no induration. ??Very mild tender. Neurologic: Awake, alert and oriented X4, CN II-XII intact Psychiatric: Cooperative, appropriate mood and affect Procedure No Qualifying Data Assessment/Plan 1.??Chronic back pain??M54.9 2.??Boil of groin??L02.224 3.??Headache, chronic migraine without aura, intractable??G43.719 Other chronic pain??G89.29 Orders: clindamycin, 300 mg = 2 cap, Oral, Cap, Once, Antibiotic Indication Skin/soft tissue, abscess/purulent, First Dose: 07/06/23 13:00:00 CDT, Stop Date: 07/06/23 13:00:00 CDT, Physician Stop, Routine Benadryl, 50 mg = 1 mL, Intramuscular, Injection, Once, First Dose: 07/06/23 13:00:00 CDT, Stop Date: 07/06/23 13:00:00 CDT, Physician Stop, Routine morphine, 4 mg = 1 mL, Intramuscular, Injection, Once, First Dose: 07/06/23 13:00:00 CDT, Stop Date: 07/06/23 13:00:00 CDT, Physician Stop, Routine Phenergan, 25 mg = 1 mL, Intramuscular, Injection, Once, First Dose: 07/06/23 13:00:00 CDT, Stop Date: 07/06/23 13:00:00 CDT, Physician Stop, Routine Prescription for clindamycin 300 m??1 capsule 3 times daily for 10 days. ??Apply heat to affected area.?? Continue other home medications. ??Return to ED if symptoms worsen. Patient Discharge Condition Good Discharge Disposition Discharge home Patient Education Skin Abscess, Dwtr-cj-Yseb Chronic Migraine Headache, Ymjn-kh-Feel Follow Up With When Contact Information Hermes Ramirez MD Within [address] [place] [address], [address] [place] [address]- Additional Instructions: Medication Reconciliation Unchanged amLODIPine (amLODIPine [...] Problem List/Past Medical History Ongoing Acne Anxiety Boil of groin Breast lump on left side at 3 [...] Liver transplantation (05/08/2020)???Mammogram (2020)??? delivery???cyst removal from [facility]???liver transplant Allergies NSAIDs Toradol??(Kidney failure as a complication of care) aspirin??(Medication interaction) azithromycin??(Unknown) codeine??(Unknown, Itching) gentamicin morphine??(redness, Itching) erythromycin??(Medication interaction) Social History Alcohol Never Electronic Cigarette/Vaping Electronic Cigarette Use: Never. Substance Use Never Tobacco Current everyday tobacco user Tobacco Use:.- Comments: Pt states that she smokes half a pack a day. Family History Cancer: Mother. Attending Attestation Follow-up with PCP Electronically Signed on 07/06/23 12:25 PM Jesus Khan MD Patient Care team information Care Team Personnel Name: Jessee Jones ROOFER VINYL COATING Position: Physician Member Role: Nurse Practitioner Address: Address: [address] [facility], [address] [place], [place] [address]- Name: Latoya Marquez ROOFER VINYL COATING Position: Physician Member Role: Nurse Practitioner Address: Address: [address] [place] [address]- Name: Leonila Gonzalez ROOFER VINYL COATING Position: Physician Member Role: Nurse Practitioner Address: Address: [address] [place] [address]- Name: Beth Brandt ROOFER VINYL COATING Position: Physician Member Role: Nurse Practitioner Address: Address: [address] [place] [address] [place] [address] Name: Hermes Ramirez MD Position: Physician Member Role: Informed Provider Address: Address: [address] [facility], [address] [place], [place] [address]- Name: Pillo Moe ROOFER VINYL COATING Position: Physician Member Role: Nurse Practitioner Address: Address: [address] [facility], [address] [facility] Care Team Related Persons Name: STACIA JONES Address: Home [address] [phone] Name: MADY CHEN Name: MADY CHEN
--- OUTSIDE RECORDS SUMMARY | 2024-03-20 11:39 | XMS_ITS | Continuity of Care Document ---
Author Organization [facility] Address [address] [place] [address]- Care Team Providers Care Reel Winder Name Role Phone Hermes Ramirez Primary Care Physician Encounter RANDY MARILUZ [id number] Date(s): 07/26/23 - 07/26/23 [facility] [address] [place] [address]- Encounter Diagnosis Chronic back pain(Discharge Diagnosis) - 07/26/23 Other chronic pain(Discharge Diagnosis) - 07/26/23 Discharge Disposition: Home or Self Care Attending [...] from: Title:Office Visit Note Author:Philip Ramirez MD Date:07/26/23 1.??Chronic back pain??M54.9 ??Will continue physical therapy. ??Will increase gabapentin to 600 twice a day. ??I put a reminder in the chart??for 5 weeks to recontact pain clinic and proceed with the??referral which she badly needs.?? We discussed that if??pain clinic and physical therapy do not provide adequate relief I would consider referral??to a back surgeon.?? We discussed opioids and I continue to encourage her??to avoid??opioids for this. Other chronic pain??G89.29 Orders: gabapentin 300 mg oral capsule, 600 mg = 2 cap, Oral, BID, # 120 cap, 2 Refill(s), Pharmacy: [id number], 157.48, cm, 07/23/23 17:59:00 CDT, Height, 88.45, kg, 07/26/23 15:49:00 CDT, Weight Dosing Future Appointments Future Scheduled Tests Radiology* MG [...] Daily, # 30 tab, 11 Refill(s), Pharmacy: [place], [place], 157.48, cm, 01/04/23 15:03:00 CDT, Height/Length Dosing, 81.65, kg, 01/04/23 15:03:00 CDT, Weight Dosing Start Date: 01/11/23 Status: Ordered aspirin 81 mg oral delayed release tablet 81 mg = 1 tab, Oral, Daily, # 30 tab, 0 Refill(s) Start Date: 04/05/21 Status: Ordered gabapentin 300 mg oral capsule 600 mg = 2 cap, Oral, BID, # 120 cap, 2 Refill(s), [facility]acy: [id number]- [facility], 157.48, cm, 07/23/23 17:59:00 CDT, Height, [...] BID, # 60 cap, 11 Refill(s), Pharmacy: [place], [place], 157.48, cm, 01/04/23 15:03:00 CDT, Height/Length Dosing, 81.65, kg, 01/04/23 15:03:00 CDT, Weight Dosing Start Date: 01/11/23 Status: Ordered pantoprazole 40 mg oral delayed release tablet 1 tab, Oral, Daily, # 90 tab, 0 Refill(s), [facility]acy: [id number], 157.48, cm, 06/07/23 16:07:00 CDT, Height, 89.36, [...] QID, # 360 tab, 0 Refill(s), Pharmacy: [id number], 157.48, cm, 06/07/23 16:07:00 CDT, Height, 89.36, [...] Oral [35.8-37.3 Deg C] 36.8 Deg C (07/26/23 3:44 PM) Peripheral Pulse Rate [60-100 bpm] 76 bp m (07/26/23 3:44 PM) Respiratory Rate [12-24 br/min] 18 br/mi n (07/26/23 3:44 PM) Blood Pressure [90-140/60-90 mmHg] 130/7 6mmHg (07/26/23 3:44 PM) Mean Arterial Pressure, Cuff [65-140 mmH g] 94 mmHg (07/26/23 3:44 PM) Weight 88.45 kg (07/26/23 3:44 PM) Weight Measured (lbs) 194.999 lb (07/26/23 3:44 PM) Weight Dosing 88.450 kg (07/26/23 3:44 PM) Social History Social History Type Response Tobacco Current everyday tob acco user Tobacco Use:. Sex Physician Outpatient Note * Hermes Ramirez MD: PERFORM Event Display: Office Clinic Note Physician Authored Date: [id number] MISHA JACKSON :1980 Age:42 years Sex:Female Visit Date:07/26/2023 Primary Care Physician: Hermes Ramirez MD Chief Complaint Pt here to go over MRI. History of Present Illness MISHA JACKSON??is a??42 Years??old??Female??presenting today with??Chief Complaint: Pt here togo over MRI. (07/26/23 15:44:00).?? 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 She started physical therapy this week.?? Refer to ??pain management but they want her to complete physical therapy before they will??accept the referral.?? She continues to have severe pain. ??She is taking gabapentin twice a day. Review of Systems Constitutional:?No??fevers Respiratory:?No??shortness of breath Cardiovascular:?No??Chest pain Gastrointestinal:?No??abd pain Physical Exam Vitals & Measurements T:??36.8?C ??(Oral)?? HR:??76??(Peripheral)?? RR:??18?? BP:??130/76?? SpO2:??99%?? WT:??88.45??kg?? Gen:??Alert and oriented no acute distress. Assessment/Plan 1.??Chronic back pain??M54.9 ??Will continue physical therapy. ??Will increase gabapentin to 600 twice a day. ??I put a reminderin the chart??for 5 weeks to recontact pain clinic and proceed with the??referral which she badly needs.?? We discussed that if??pain clinic and physical therapy do not provide adequate relief I would consider referral??to a back surgeon.?? We discussed opioids and I continue to encourage her??to avoid??opioids for this. Other chronic pain??G89.29 Orders: gabapentin 300 mg oral capsule, 600 mg = 2 cap, Oral, BID, # 120 cap, 2 Refill(s), [facility]acy: [id number], 157.48, cm, 07/23/23 17:59:00 CDT, Height, 88.45, kg, 07/26/23 15:49:00 CDT, Weight Dosing Problem List/Past Medical History Ongoing Acne Anxiety [...] (05/08/2020)???Mammogram (2020)??? [place] Medications amLODIPine 5 mg oral tablet, 5 mg= 1 tab, Oral, Daily, 11 refills aspirin 81 mg oral delayed release tablet, 81 mg= 1 tab, Oral, Daily clindamycin 300 mg oral capsule, 300 mg= 1 cap, Oral, every 8 hr gabapentin 300 mg oral capsule, 600 mg= 2 cap, Oral, BID, 2 refills Gengraf 25 mg oral capsule levothyroxine 75 mcg (0.075 mg) oral tablet LORazepam 0.5 mg oral tablet metoprolol succinate 100 mg oral capsule, extended release, 100 mg= 1 cap, Oral, BID, 11 refills pantoprazole 40 mg oral delayed release [...] (Tdap) adult/adol 05/25/2012 Recorded Electronically Signed on 07/26/23 04:16 PM Hermes Ramirez MD Patient Care team information Care Team Personnel Name: Jessee Jones BUSINESS SUPPORT MANAGER Position: Physician Member Role: Nurse Practitioner Address: Address: [address] [facility] [address], [address] [place] [address]- Name: Latoya Marquez BUSINESS SUPPORT MANAGER Position: Physician Member Role: Nurse Practitioner Address: Address: [address] [place] [address]- Name: Leonila Gonzalez BUSINESS SUPPORT MANAGER Position: Physician Member Role: Nurse Practitioner Address: Address: [address] [place] [address]- Name: Beth Brandt BUSINESS SUPPORT MANAGER Position: Physician Member Role: Nurse Practitioner Address: Address: [address] [place] [address] [place] [address] Name: Hermes Ramirez MD Position: Physician Member Role: Informed Provider Address: Address: [address], [address] [place] [address]- Name: Pillo Moe BUSINESS SUPPORT MANAGER Position: Physician Member Role: Nurse Practitioner Address: Address: [address], [address] [facility] Care Team Related Persons Name: STACIA JONES Address: Home [address] [id number] Name: NAIF CHOI Name: MADY CHEN
--- OUTSIDE RECORDS SUMMARY | 2024-03-20 11:39 | XMS_ITS | Continuity of Care Document ---
Author Organization [facility] Address [address] [place] [address] Care Team Providers Care Algorithm Design Engineer Name Role Phone Vijaynixon Hermes Chris Primary Care Physician [phone] Encounter ONOFRE MCGRAW [id number] Date(s): 06/11/21 - 09/28/21 [place] [address] [place] [address]- Encounter Diagnosis Cervicalgia(Final) - Pain in thoracic spine(Final) - Low back pain, unspecified(Final) - Anesthesia of skin(Final) - Discharge Disposition: Home or Self Care Attending Physician: Jessee Jones REMOTE OPERATIONS PRODUCER Admitting Physician: Jessee Jones REMOTE OPERATIONS PRODUCER Allergies, Adverse Reactions, Alerts Substance Reaction Severity Status gentamicin Moderate Active erythromycin Medication interaction Activ e aspirin Medication interaction Activ e Toradol Kidney failure as a complication of care Active NSAIDs Severe Active Functional Status 06/13/21 Prior ADL Status Independent Prior Mobility Status Independent Prior Instrumental ADL Level Independent Prior Cognitive-Communication Skills Ind ependent 06/11/21 Patient's Responsibilities Rehab Communi ty mobility, Health and wellness, Home management, Manage Medications, Meal preparation Immunizations Given and Recorded Vaccine Date Status [...] hr, # 20 tab, 0 Refill(s), Pharmacy: [facility] [place], [place], 73, cm, 09/13/21 23:53:00 CDT, Height/Length Dosing, 157, kg, 09/13/21 23:53:00 CDT, Weight Dosing Start Date: 09/14/21 Stop Date: 09/24/21 Status: Ordered albuterol 90 mcg/inh aerosol inhaler 1 puffs, Inhale, every 4 hr, PRN as needed for wheezing, # 6.7 g, 0 Refill(s), Pharmacy: [place], [place], 73, cm, 09/13/21 23:53:00 CDT, Height/Length [...] TID, # 21 cap, 0 Refill(s), Pharmacy: [place], [place], 157, cm, 09/27/21 22:29:00 CDT, Height/Length Dosing, 73, kg, 09/27/21 22:29:00 CDT, Weight Dosing Start Date: 09/27/21 Stop Date: 10/04/21 Status: Ordered codeine-guaifenesin 7.5 mg-225 mg/5 mL oral liquid 7.5 mL, Oral, every 6 hr, PRN as needed for cough, # 120 mL, 0 Refill(s), Pharmacy: [place], [place], 73, cm, 09/13/21 23:53:00 CDT, Height/Length Dosing, 157, kg, 09/13/21 23:53:00 CDT, Weight Dosing Start Date: 09/14/21 Status: Ordered Diflucan 150 mg oral tablet 150 mg = 1 tab, Oral, Once, # 1 tab, 0 Refill(s), Pharmacy: [place], [place], 73, cm,09/13/21 23:53:00 CDT, Height/Length Dosing, 157, kg, 09/13/21 23:53:00 CDT, Weight Dosing Start Date: 09/24/21 Status: Ordered gabapentin 300 mg oral capsule [...] BID, # 180 tab, 3 Refill(s), Pharmacy: [place], [place], 157, cm, 10/22/20 21:26:00 CDT, Height/Length [...] Team Personnel Name: Hermes Ramirez MD Address: [address] [place] [address], [address] [place] [address]-
--- OUTSIDE RECORDS SUMMARY | 2024-03-20 11:39 | XMS_ITS | Continuity of Care Document ---
Author Organization Formerly [facility] Address [address] [place] [address] Care Team Providers Care Social Media Analyst Name Role Phone Hermes Ramirez Primary Care Physician Encounter ONOFRE MARILUZ [id number] Date(s): 02/21/21 - 02/21/[address] [address] Encounter Diagnosis Migraine headache(Discharge Diagnosis) - 02/21/21 Otitis externa of both ears(Discharge Diagnosis) - 02/21/21 Discharge Disposition: Home or Self Care Attending [...] 0 Refill(s) Start Date: 07/01/20 Status: Ordered Cipro HC 0.2%-1% otic suspension 3 drops, Ear-Both, BID, X 7 days, # 10 mL, 0 Refill(s), 02/28/21 18:42:00 EQUITY STRUCTURER, Pharmacy: [place], [place], [address], cm, 02/21/21 18:39:00 EQUITY STRUCTURER, Height/Length Dosing, 77, kg, 02/21/21 18:39:00 EQUITY STRUCTURER, Weight Dosing Start Date: 02/21/21 Stop Date: 02/28/21 Status: Ordered gabapentin 300 mg oral capsule TAKE ONE CAPSULE AT BEDTIME Start Date: 12/18/20 Status: Ordered LORazepam 0.5 mg oral tablet TAKE ONE TABLET BY MOUTH DAILY NEEDED FOR ANXIETY Start Date: 12/18/20 Status: Ordered Metoprolol Tartrate 25 mg oral tablet 25 mg = 1 tab, Oral, BID, # 180 tab, 3 Refill(s), Pharmacy: [place], [place], [address], cm, 10/22/20 21:26:00 CDT, Height/Length Dosing, 74, kg, 10/22/20 21:26:00 CDT, Weight Dosing Start Date: 12/18/20 Status: Ordered Pepcid 20 mg oral tablet 20 mg = 1 tab, Oral, BID, 0 Refill(s) Start Date: 09/29/20 Status: Ordered Retin-A 0.05% topical cream 1 sanjiv, Topical, every day at bedtime, # 45 g, 2 Refill(s), Pharmacy: [place], [place], 157.[address], cm, 08/18/20 12:26:00 CDT, Height/Length [...] from Oropharyngeal Swab collected on 25-JAN-2021 10:43:00 EQUITY STRUCTURER tested positive for COVID-19. Procedures Procedure Date Related Diagnosis Body Site Status Bladder washout 12/14/20 Completed Kidney transplant 05/13/20 Complet ed Tx - Liver transplantation 05/08/20 Completed delivery Complet ed cyst removal from breast Completed Hernia Completed liver transplant Complete d Vital Signs Most recent to oldest [Reference Range]: 1 Temperature Oral [35.8-37.3 Deg C] 36.8 Deg C (02/21/21 6:30 PM) Peripheral Pulse Rate [60-100 bpm] 110 b pm *HI* (02/21/21 6:30 PM) Respiratory Rate [12-24 br/min] 20 br/mi n (02/21/21 6:30 PM) Blood Pressure [90-140/60-90 mmHg] 160/1 00mmHg *HI* (02/21/21 6:30 PM) Weight 77.00 kg (02/21/21 6:30 PM) Weight Dosing 77.00 kg (02/21/21 6:39 PM) Height 157.000 cm (02/21/21 6:30 PM) Height/Length Dosing 157.000 cm (02/21/21 6:39 PM) Body Mass Index Estimated 31 (02/21/21 6:30 PM) Social History Social History Type Response Smoking Status 5-9 cigarettes (betw een 1/4 to 1/2 pack)/day in last 30 days entered on: 08/18/20 Sex Hospital Discharge Instructions Patient Education 02/21/2021 18:47:01 Ear Drops, Adult, Kgaj-nc-Gojh Ear Drops, Adult Your doctor has found that you have a condition that requires you to use ear drops. Ear drops are amedicine that is placed in the ear. You may need to use ear drops in one ear or both ears as told by your doctor. This sheet gives you information about how to use this medicine. Your doctor may alsogive you more instructions. Supplies needed: ??? Cotton balls. ??? Ear drops. How to put ear drops into your ear 1. Wash your hands for 20 seconds with soap and water. If you cannot use soap and water, use hand cost estimating engineer. 2. Make sure your ears are clean and dry. 3. If there is any earwax or fluid at the outer part of the ear canal, wipe it out gently with a cotton-tipped swab. 4. Warm the medicine by holding it in your hand for a few minutes. 5. Shake the medicine gently to mix the ear drops. 6. Use the dropper to draw up the ear drops. You will need to squeeze the round part of the dropperto do this. 7. Put the drops in your ear as told. Hold the dropper above your ear. Do not let the dropper touchyour ear. The medicine may go in more easily if you pull the flap of your ear up and back while youput the drops in. 8. To make sure your ear soaks up the medicine, do one of these things: ??? Lie down for 10 minutes. The ear with the medicine in it should face up. This will cause the drops to stay in the ear canal and fill the canal. ??? Put a cotton ball in your ear. Do not push it deeper into your ear. Take out the cotton ball when the drops have been soaked up or after 15???30 minutes have passed. 9. If you need to put drops in your other ear, repeat the same steps. Your doctor will tell you if you should put drops in both ears. 10. Wash your hands for 20 seconds with soap and water after using ear drops. If you cannot use soap and water, use hand cost estimating engineer. Follow these instructions at home: ??? Use the ear drops for as long as your doctor tells you to. Do not stop even if you begin to feel better. ??? Always wash your hands for 20 seconds before and after handling the ear drops. ??? Keep the ear drops at room temperature. ??? Do not wash out your ears unless told to by your doctor. ??? Keep all follow-up visits as told by your doctor. This is important. Contact a doctor if: ??? Your condition gets worse. ??? Your pain or itching gets worse. ??? Unusual fluid is coming from your ear, especially if the fluid smells bad. ??? You have new trouble hearing. ??? You get a rash around your ear. ??? You have used the ear drops for the amount of time told by your doctor, but you do not feel better. Get help right away if: ??? You feel like the room is spinning and you feel like you might vomit. This condition is called vertigo. ??? The outside of your ear becomes red or swollen. ??? You have a very bad headache with or without a stiff neck. Summary ??? Ear drops are a medicine that is put in the ear. ??? Put the drops in your ear as told by your doctor. ??? Use the ear drops for as long as your doctor tells you to. Do not stop even if your symptoms get better. ??? Keep all follow-up visits as told by your doctor. This is important. This information is not intended to replace advice given to you by your health care provider. Make sure you discuss any questions you have with your health care provider. Document Revised: 01/01/2020 Document Reviewed: 01/01/2020 [employer] Patient Education ?? 2020 [employer] Follow Up Care 02/21/2021 18:30:45 With:Follow up with primary care provider Address: When:2 to 4 days Comments:See PCP in a few days to recheck both ears
--- OUTSIDE RECORDS SUMMARY | 2024-03-20 11:39 | XMS_ITS | Continuity of Care Document ---
Author Organization [facility] Address [address] [place] [address] Care Team Providers Care Ice Skater Name Role Phone Hermes Ramirez Primary Care Physician Encounter ONOFRE MCGRAW [id number] Date(s): 11/25/21 - 11/26/[address] [address] Encounter Diagnosis Headache, migraine, intractable(Discharge Diagnosis) - 11/25/21 Otomycosis(Discharge Diagnosis) - 11/25/21 Otitis externa in other diseases classified elsewhere, unspecified ear(Discharge Diagnosis) - 11/25/21 Discharge Disposition: Home or Self Care Attending [...] Assessment and Plan Future Appointments Functional Status 11/25/21 Other exposure to Infectious Disease Non e [...] wheezing, # 6.7 g, 0 Refill(s), Pharmacy: [place], [place], [address], cm, 09/13/21 23:53:00 CDT, Height/Length [...] needed, # 12 cap, 0 Refill(s), Pharmacy: [place], [place], [address], cm, 11/04/21 20:02:00 CDT, Height/Length Dosing, 73, kg, 11/04/21 20:02:00 CDT, Weight Dosing Start Date: 11/04/21 Status: Ordered cefaclor 500 mg oral tablet, extended release 500 mg = 1 tab, Oral, BID, # 20 tab, 0 Refill(s), Pharmacy: [place], [place], [address], cm, 11/18/21 23:46:00 CDT, Height/Length Dosing, 73, kg, 11/18/21 23:46:00 CDT, Weight Dosing Start Date: 11/19/21 Stop Date: 11/29/21 Status: Ordered gabapentin 300 mg oral capsule TAKE ONE CAPSULE AT BEDTIME Start Date: 12/18/20 Status: Ordered LORazepam 0.5 mg oral tablet TAKE ONE TABLET BY MOUTH DAILY NEEDED FOR ANXIETY Start Date: 12/18/20 Status: Ordered Metoprolol Tartrate 25 mg oral tablet 25 mg = 1 tab, Oral, BID, # 180 tab, 3 Refill(s), Pharmacy: [place], [place], [address], cm, 10/22/20 21:26:00 CDT, Height/Length Dosing, 74, kg, 10/22/20 21:26:00 CDT, Weight Dosing Start Date: 12/18/20 Status: Ordered morphine 4 mg/mL preservative-free injectable solution 4 mg = 1 mL, IM, Once, 0 Refill(s) Start Date: 11/25/21 Status: Ordered ondansetron 4 mg oral tablet, disintegrating 4 mg = 1 tab, Oral, every 6 hr, PRN nausea/vomiting, # 12 tab, 0 Refill(s), Pharmacy: [place], [place], [address], cm, 11/04/21 20:02:00 CDT, Height/Length [...] nausea/vomiting, # 20 tab, 0 Refill(s), Pharmacy: [place], [place], [address], cm, 09/29/21 23:03:00 CDT, Height/Length [...] [35.8-37.3 Deg C] 37 De g C (11/25/21 11:07 PM) Peripheral Pulse Rate [60-100 bpm] 86 bp m (11/25/21 11:07 PM) Respiratory Rate [12-24 br/min] 18 br/mi n (11/25/21 11:07 PM) Blood Pressure [90-140/60-90 mmHg] 147/9 2mmHg *HI* (11/25/21 11:07 PM) Weight 72.57 kg (11/25/21 11:07 PM) Weight Dosing 72.57 kg (11/25/21 11:21 PM) Height 157.480 cm (11/25/21 11:07 PM) Height/Length Dosing 157.480 cm (11/25/21 11:21 PM) Social History Social History Type Response Smoking Status 5-9 cigarettes (betw een 1/4 to 1/2 pack)/day in last 30 days entered on: 05/12/21 Sex Hospital Discharge Instructions Patient Education 11/25/2021 23:23:02 Migraine Headache, Cbxg-db-Zubn Migraine Headache A migraine headache is a [...] these instructions at home: Medicines ??? Take zxii-xbb-ulaingb and prescription medicines only as told by your doctor. ??? Ask your doctor if the medicine prescribed to you: ??? Requires you to avoid driving or using heavy machinery. ??? Can cause trouble pooping (constipation). You may need to take these steps to prevent or treat trouble pooping: ??? Drink enough fluid to keep your pee (urine) pale yellow. ??? Take rwlq-brs-gwuagcl or prescription medicines. ??? Eat foods that [...] provider. Document Revised: 06/28/2019 Document Reviewed: 04/18/2019 [employer] Patient Education ?? 2021 [employer] Follow Up Care 11/25/2021 23:07:39 With:Follow up with primary care provider Address: When:5 to 7 days Patient Care team information Personnel Name: Hermes Ramirez MD Address: Address: [facility], [address] [place] [address]-
--- OUTSIDE RECORDS SUMMARY | 2024-03-20 11:39 | XMS_ITS | Continuity of Care Document ---
Author Organization [facility] Address [address] [place] [address] Care Team Providers Care Sales Marketing Director Name Role Phone Hermes Ramirez Primary Care Physician Encounter ONOFREEver MCGRAW [id number] Date(s): 06/01/21 - 06/01/[address] [address] [place] Encounter Diagnosis Intractable migraine(Discharge Diagnosis) - 06/01/21 Meralgia paresthetica of left side(Discharge Diagnosis) - 06/01/21 Discharge Disposition: Home or Self Care Attending [...] BID, # 180 tab, 3 Refill(s), Pharmacy: [place], [place], [address], cm, 10/22/20 21:26:00 CDT, Height/Length [...] Oral [35.8-37.3 Deg C] 36.9 Deg C (06/01/21 6:09 PM) Peripheral Pulse Rate [60-100 bpm] 108 b pm *HI* (06/01/21 6:09 PM) Respiratory Rate [12-24 br/min] 16 br/mi n (06/01/21 6:09 PM) Blood Pressure [90-140/60-90 mmHg] 156/9 6mmHg *HI* (06/01/21 6:09 PM) Weight 77.00 kg (06/01/21 6:09 PM) Weight Dosing 77.00 kg (06/01/21 6:46 PM) Height 157.000 cm (06/01/21 6:09 PM) Height/Length Dosing 157.000 cm (06/01/21 6:46 PM) Body Mass Index Estimated 31 (06/01/21 6:09 PM) Social History Social History Type Response Smoking Status 5-9 cigarettes (betw een 1/4 to 1/2 pack)/day in last 30 days entered on: 05/12/21 Sex Hospital Discharge Instructions Patient Education 06/01/2021 18:15:41 Migraine Headache, Kosj-vd-Vnaz Migraine Headache A migraine headache is a [...] these instructions at home: Medicines ??? Take gybk-pai-lrrstpd and prescription medicines only as told by your doctor. ??? Ask your doctor if the medicine prescribed to you: ??? Requires you to avoid driving or using heavy machinery. ??? Can cause trouble pooping (constipation). You may need to take these steps to prevent or treat trouble pooping: ??? Drink enough fluid to keep your pee (urine) pale yellow. ??? Take yhcq-wrg-hxdjrmw or prescription medicines. ??? Eat foods that [...] provider. Document Revised: 06/28/2019 Document Reviewed: 04/18/2019 [employer] Patient Education ?? 2020 [employer] 06/01/2021 18:15:37 Pinched Nerve Pinched Nerve A pinched nerve is an injury that occurs when too much pressure is placed on a nerve. This pressurecan cause pain, burning, and muscle weakness in places that the nerve supplies feeling to, such as an arm, hand, or leg, or the back or neck. If a nerve is severely pinched or has been pinched for a long time, permanent nerve damage can occur. What are the causes? This condition may be caused by: ??? A nerve passing through a narrow area between bones or other body structures. ??? Arthritis that causes bones to press on a nerve. ??? Loss of blood supply to a nerve. ??? A nerve being stretched from an injury. ??? A sudden injury with swelling. ??? Long-term wear on the nerve. ??? Age-related changes in the spine. What are the signs or symptoms? The most common symptoms of a pinched nerve are feeling a tingling sensation and numbness. Other symptoms include: ??? Pain that spreads from one area of the body part to another. ??? A burning feeling. ??? Muscle weakness. How is this diagnosed? This condition may be diagnosed based on: ??? A physical exam. During the exam, your health care provider will: ??? Check for numbness and muscle weakness. ??? Move affected body parts to test for pain. ??? X-rays to check for bone damage. ??? A MRI or CT scan to check for conditions that may be causing nerve damage. ??? A muscle test (electromyogram, EMG) to evaluate how your muscles and nerves communicate. How is this treated? A pinched nerve is usually treated first by: ??? Resting the affected body area. ??? Using devices to help you move without pain (supportive or protective devices), such as a splint, brace, or neck collar. Other treatments depend on your symptoms and the amount of nerve damage you have. Other treatments may include: ??? Medicines, such as: ??? Injections of numbing medicine. ??? NSAIDs. ??? Pain medicines. ??? Steroid medicines. These may be given as a pill or as an injection. ??? Physical therapy to relieve pain, maintain movement, and improve muscle strength. ??? Surgery. This may be done if other treatments do not work. Follow these instructions at home: ??? Take kmeh-etz-gvhqghw and prescription medicines only as told by your health care provider. ??? Wear supportive or protective devices as told by your health care provider. ??? Do physical therapy exercises as directed. ??? Ask your health care provider what activities are safe for you. ??? Rest as needed. ??? If directed, put ice on the affected area: ??? Put ice in a plastic bag. ??? Place a towel between your skin and the bag. ??? Leave the ice on for 20 minutes, 2???3 times a day. ??? If directed, apply heat to the affected area. Use the heat source that your health [...] have a greater risk of getting burned. ??? Do not drive or use heavy machinery while taking prescription pain medicine. ??? Keep all follow-up visits as told by your health care provider. This is important. Contact a health care provider if: ??? Your condition does not improve with treatment. ??? Your pain, numbness, or weakness suddenly gets worse. Get help right away if you: ??? Have loss of bladder control (urinary incontinence) or you cannot urinate. ??? Cannot control bowel movements (fecal incontinence). ??? Have new weakness in your arms or legs. Summary ??? A pinched nerve is an injury that occurs when too much pressure is placed on a nerve. ??? This pressure can cause pain, burning, and muscle weakness in places that the nerve supplies feeling to, such as an arm, hand, or leg, or the back or neck. ??? Take eiim-vtv-dlesxqd and prescription medicines only as told by your health care provider. ??? Ask your health care provider what activities are safe for you while you are having symptoms. This information is not intended to replace advice given to you by your health care provider. Make sure you discuss any questions you have with your health care provider. Document Revised: 03/23/2018 Document Reviewed: 03/20/2018 [employer] Patient Education ?? 2020 [employer] Follow Up Care 06/01/2021 18:08:57 With:Follow up with primary care provider Address: When:5 to 7 days Care Team Personnel Name: Hermes Ramirez MD Address: [address] [place] [address], [address] [place], [place] [address]
--- OUTSIDE RECORDS SUMMARY | 2024-03-20 11:39 | XMS_ITS | Continuity of Care Document ---
Author Organization [facility] Address [address] [place] [address] Care Team Providers Care Framing Consultant Name Role Phone Hermes Ramirez Primary Care Physician Encounter ONOFRE MCGRAW [id number] Date(s): 12/08/22 - 12/08/[address] [address] [place] Discharge Disposition: Left Without Being Seen Attending Physician: Fernando House MD Admitting Physician: [...] Complete 2+ Views Right 07/04/22 Functional Status 12/08/22 Family Member Travel History No recent t [...] Daily, # 30 tab, 0 Refill(s), Pharmacy: [place], [place], 157, cm, 09/10/22 15:23:00 CDT, Height/Length [...] BID, # 60 cap, 0 Refill(s), Pharmacy: [place], [place], [address], cm, 09/10/22 15:23:00 CDT, Height/Length [...] [35.8-37.3 Deg C] 37 De g C (12/08/22 11:09 PM) Peripheral Pulse Rate [60-100 bpm] 88 bp m (12/08/22 11:09 PM) Blood Pressure [90-140/60-90 mmHg] 132/8 8mmHg (12/08/22 11:09 PM) Weight Dosing 81.65 kg (12/08/22 11:16 PM) Weight Estimated 81.65 kg (12/08/22 11:09 PM) Height/Length Dosing 157.480 cm (12/08/22 11:16 PM) Height/Length Estimated 157.480 cm (12/08/22 11:09 PM) Social History Social History Type Response Tobacco Current everyday tob acco user Tobacco Use:. Sex Patient Care team information Care Team Personnel Name: Jessee Jones CONSULTING NURSE Position: Physician Member Role: Nurse Practitioner Address: Address: [address] [place] [address], [address] [place] [address] Name: Latoya Marquez CONSULTING NURSE Position: Physician Member Role: Nurse Practitioner Address: Address: [address] [place] [address]- Name: Leonila Gonzalez CONSULTING NURSE Position: Physician Member Role: Nurse Practitioner Address: Address: [address] [place] [address]- Name: Beth Brandt CONSULTING NURSE Position: Physician Member Role: Nurse Practitioner Address: Address: [address] [place] [id number] [place] Name: Hermes Ramirez MD Position: Physician Member Role: Informed Provider Address: Address: [address] [place] [address], [address] [place] [address]- Name: Pillo Moe CONSULTING NURSE Position: Physician Member Role: Nurse Practitioner Address: Address: [address] [place] [address], [address] [facility] Name: Annabella Billings RN Position: Nurse Member Role: Registered Nurse Care Team Related Persons Name: STACIA JONES Address: Home [address] [place] [phone] Name: ROBYN JAMA
--- OUTSIDE RECORDS SUMMARY | 2024-03-20 11:39 | XMS_ITS | Continuity of Care Document ---
Author Organization [facility] Address [address] [place] [address] Care Team Providers Care Retail Client Manager Name Role Phone Hermes Ramirez Primary Care Physician [phone] Encounter ONOFRE [facility] [id number] Date(s): 03/26/21 - 03/26/21 [facility] [address] [place] [address] [place] Discharge Disposition: Home or Self Care Attending Physician: Akil Ramirez MD Allergies, Adverse Reactions, Alerts Substance Reaction Severity Status gentamicin Moderate Active erythromycin Medication interaction Activ e aspirin Medication interaction Activ e Toradol Kidney failure as a complication of care Active NSAIDs Severe Active Assessment and Plan Future Scheduled Tests Laboratory* Rheumatoid Arthritis Factor LC 03/24/21 * CCP Antibodies IgG/IgA LC 03/24/21 * Sedimentation Rate (ESR) 03/24/21 Functional Status 03/26/21 Other exposure to Infectious Disease Non e [...] BID, # 180 tab, 3 Refill(s), Pharmacy: [place], [place], 157, cm, 10/22/20 21:26:00 CDT, Height/Length [...] bedtime, # 45 g, 2 Refill(s), Pharmacy: [place], [place], 157.[address], cm, 08/18/20 12:26:00 CDT, Height/Length [...] Most recent to oldest [Reference Range]: 1 Blood Pressure [90-140/60-90 mmHg] 118/3 2mmHg (03/26/21 3:30 PM) Weight 77.11 kg (03/26/21 3:30 PM) Weight Measured (lbs) 169.998 lb (03/26/21 3:30 PM) Height 157.48 cm (03/26/21 3:30 PM) Height/Length Measured (inches) 62 inch (03/26/21 3:30 PM) BSA Measured 1.84 m2 (03/26/21 3:30 PM) Body Mass Index 31.09 kg/m2 (03/26/21 3:30 PM) Social History Social History Type Response Smoking Status 5-9 cigarettes (betw een 1/4 to 1/2 pack)/day in last 30 days entered on: 08/18/20 Sex
--- OUTSIDE RECORDS SUMMARY | 2024-03-20 11:39 | XMS_ITS | Continuity of Care Document ---
Author Organization [facility] Address [address] [place] [address] Care Team Providers Care Armored Transport Service Manager Name Role Phone Hermes Ramirez Primary Care Physician [phone] Encounter [facility] [id number] Date(s): 03/16/22 - 03/16/22 [address] [address] [place], [place] [address] Encounter Diagnosis Intractable chronic migraine without aura(Discharge Diagnosis) - 03/16/22 COVID-19(Discharge Diagnosis) - 03/16/22 History of kidney transplant(Discharge Diagnosis) - 03/16/22 History of liver transplant(Discharge Diagnosis) - 03/16/22 Influenza B(Discharge Diagnosis) - 03/16/22 Discharge Disposition: Home or Self Care Attending Physician: Akil Casas MD Admitting Physician: Akil Casas MD Allergies, Adverse Reactions, Alerts Substance Reaction Severity Status codeine Unknown Itching Severe Active gentamicin Moderate Active erythromycin Medication interaction Activ e azithromycin Unknown Severe Active aspirin Medication interaction Severe Activ e Toradol Kidney failure as a complication of care Severe Active NSAIDs Severe Active Functional Status 03/16/22 Recent Travel History No recent travel Other exposure to Infectious Disease COV ID-19 [...] wheezing, # 6.7 g, 0 Refill(s), Pharmacy: [place], [place], 73, cm, 09/13/21 23:53:00 CDT, Height/Length [...] needed, # 12 cap, 0 Refill(s), Pharmacy: [place], [place], 157, cm, 11/04/21 20:02:00 CDT, Height/Length [...] BID, # 180 tab, 3 Refill(s), Pharmacy: [facility], 157.48, cm, 02/07/22 18:45:00CST, Height/Length Dosing, 72.57, kg, 02/07/22 18:45:00 [facility], Weight Dosing Start Date: 02/13/22 Status: Ordered morphine 4 mg/mL preservative-free injectable solution 2 mg = 0.5 mL, IM, Once, 0 Refill(s) Start Date: 02/07/22 Status: Ordered oseltamivir 30 mg oral capsule 30 mg = 1 cap, Oral, BID, # 10 cap, 0 Refill(s), Pharmacy: [place], [place], 157.48, cm, 03/16/22 18:01:00 [facility], Height/Length Dosing, 77.11, kg, 03/16/22 18:01:00 [employer] [facility], Weight Dosing Start Date: 03/16/22 Status: Ordered [...] nausea/vomiting, # 20 tab, 0 Refill(s), Pharmacy: [place], [place], [address], cm, 09/29/21 23:03:00 CDT, Height/Length [...] ([facility]) from Swab collected on 16-MAR-2022 17:54:00 DIRECT [facility]STER tested positive for COVID-19. Procedures Procedure Date Related Diagnosis Body Site Status Bladder washout 12/14/20 Completed Kidney transplant 05/13/20 Complet ed Tx - Liver transplantation 05/08/20 Completed delivery Complet ed cyst removal from breast Completed Hernia Completed liver transplant Complete d Results Laboratory List Name Date Influenza A/B 03/16/22 SARS-CoV-2 (COVID-19) ([facility]) 03/16/22 Strep A Screen 03/16/22 Most recent to oldest [Reference Range]: 1 Influenza A [Negative] Negative (03/16/22 6:28 PM) Influenza B [Negative] Positive *ABN* (03/16/22 6:28 PM) Streptococcus A [Negative] Negative (03/16/22 6:28 PM) Employed in healthcare? No *NA* (03/16/22 6:28 PM) Hospitalized due to COVID-19? No *NA* (03/16/22 6:28 PM) In ICU? No *NA* (03/16/22 6:28 PM) Group care resident? No *NA* (03/16/22 6:28 PM) status? Not *NA* (03/16/22 6:28 PM) SARS-CoV-2 (COVID-19) ([facility]) [Negative ] Positive *ABN* (03/16/22 6:28 PM) Vital Signs Most recent to oldest [Reference Range]: 1 2 Temperature Oral [35.8-37.3 Deg C] 37.1 Deg C (03/16/22 5:33 PM) Peripheral Pulse Rate [60-100 bpm] 74 bp m (03/16/22 10:20 PM) 85 bpm (03/16/22 5:33 PM) Respiratory Rate [12-24 br/min] 20 br/mi n (03/16/22 10:20 PM) 20 br/min (03/16/22 5:33 PM) Blood Pressure [90-140/60-90 mmHg] 136/8 7mmHg (03/16/22 10:20 PM) 144/92mmHg *HI* (03/16/22 5:33 PM) Weight Dosing 77.11 kg (03/16/22 6:01 PM) Weight Estimated 77.11 kg (03/16/22 5:33 PM) Height/Length Dosing 157.480 cm (03/16/22 6:01 PM) Height/Length Estimated 157.480 cm (03/16/22 5:33 PM) Social History Social History Type Response Smoking Status 5-9 cigarettes (betw een 1/4 to 1/2 pack)/day in last 30 days entered on: 05/12/21 Sex Hospital Discharge Instructions Patient Education 03/16/2022 21:08:18 Influenza, Adult Influenza, Adult Influenza, also called the flu, is a viral infection that mainly affects the respiratory tract. This includes the lungs, nose, and throat. The flu spreads easily from person to person (is contagious). It causes common cold symptoms, along with high fever and body aches. What are the causes? This condition is caused by the influenza virus. You can get the virus by: ??? Breathing in droplets that are in the air from an infected person's cough or sneeze. ??? Touching something that has the virus on it (has been contaminated) and then touching your mouth, nose, or eyes. What increases the risk? The following factors may make you more likely to get the flu: ??? Not washing or sanitizing your hands often. ??? Having close contact with many people during cold and flu season. ??? Touching your mouth, eyes, or nose without first washing or sanitizing your hands. ??? Not getting an annual flu shot. You may have a higher risk for the flu, including serious problems, such as a lung infection (pneumonia), if you: ??? Are older than 65. ??? Are . ??? Have a weakened disease-fighting system (immune system). This includes people who have HIV or AIDS, are on chemotherapy, or are taking medicines that reduce (suppress) the immune system. ??? Have a long-term (chronic) illness, such as heart disease, kidney disease, diabetes, or lung disease. ??? Have a liver disorder. ??? Are severely overweight (morbidly obese). ??? Have anemia. ??? Have asthma. What are the signs or symptoms? Symptoms of this condition usually begin suddenly and last 4???14 days. These may include: ??? Fever and chills. ??? Headaches, body aches, or muscle aches. ??? Sore throat. ??? Cough. ??? Runny or stuffy (congested) nose. ??? Chest discomfort. ??? Poor appetite. ??? Weakness or fatigue. ??? Dizziness. ??? Nausea or vomiting. How is this diagnosed? This condition may be diagnosed based on: ??? Your symptoms and medical history. ??? A physical exam. ??? Swabbing your nose or throat and testing the fluid for the influenza virus. How is this treated? If the flu is diagnosed early, you can be treated with antiviral medicine that is given by mouth (orally) or through an IV. This can help reduce how severe the illness is and how long it lasts. Taking care of yourself at home can help relieve symptoms. Your health care provider may recommend: ??? Taking vtuf-ufq-ckugcpg medicines. ??? Drinking plenty of fluids. In many cases, the flu goes away on its own. If you have severe symptoms or complications, you may be treated in a hospital. Follow these instructions at home: Activity ??? Rest as needed and get plenty of sleep. ??? Stay home from work or school as told by your health care provider. Unless you are visiting your health care provider, avoid leaving home until your fever has been gone for 24 hours without taking medicine. Eating and drinking ??? Take an oral rehydration solution (ORS). This is a drink that is sold at pharmacies and retail stores. ??? Drink enough fluid to keep your urine pale yellow. ??? Drink clear fluids in small amounts as you are able. Clear fluids include water, ice chips, fruit juice mixed with water, and low-calorie sports drinks. ??? Eat bland, ujiy-zf-qfmyjn foods in small amounts as you are able. These foods include bananas, applesauce, rice, lean meats, toast, and crackers. ??? Avoid drinking fluids that contain a lot of sugar or caffeine, such as energy drinks, regular sports drinks, and soda. ??? Avoid alcohol. ??? Avoid spicy or fatty foods. General instructions ??? Take ayec-zjx-qbrmrrw and prescription medicines only as told by your health care provider. ??? Use a cool mist humidifier to add humidity to the air in your home. This can make it easier to breathe. ??? When using a cool mist humidifier, clean it daily. Empty the water and replace it with clean water. ??? Cover your mouth and nose when you cough or sneeze. ??? Wash your hands with soap and water often and for at least 20 seconds, especially after you cough or sneeze. If soap and water are not available, use alcohol-based hand oil well service operator. ??? Keep all follow-up visits. This is important. How is this prevented? Get an annual flu shot. This is usually available in late summer, fall, or winter. Ask your health care provider when you should get your flu shot. ??? Avoid contact with people who are sick during cold and flu season. This is generally fall and winter. Contact a health care provider if: ??? You develop new symptoms. ??? You have: ??? Chest pain. ??? Diarrhea. ??? A fever. ??? Your cough gets worse. ??? You produce more mucus. ??? You feel nauseous or you vomit. Get help right away if you: ??? Develop shortness of breath or have difficulty breathing. ??? Have skin or nails that turn a bluish color. ??? Have severe pain or stiffness in your neck. ??? Develop a sudden headache or sudden pain in your face or ear. ??? Cannot eat or drink without vomiting. These symptoms may represent a serious problem that is an emergency. Do not wait to see if the symptoms will go away. Get medical help right away. Call your local emergency services (911 in the [place] Do not drive yourself to the hospital. Summary ??? Influenza, also called the flu, is a viral infection that primarily affects your respiratory tract. ??? Symptoms of the flu usually begin suddenly and last 4???14 days. ??? Getting an annual flu shot is the best way to prevent getting the flu. ??? Stay home from work or school as told by your health care provider. Unless you are visiting your health care provider, avoid leaving home until your fever has been gone for 24 hours without taking medicine. ??? Keep all follow-up visits. This is important. This information is not intended to replace advice given to you by your health care provider. Make sure you discuss any questions you have with your health care provider. Document Revised: 10/23/2020 Document Reviewed: 10/23/2020 [email or web address] Patient Education ?? 2021 [employer]. 03/16/2022 21:08:06 COVID-19 ??? CDC (Vietnamese) (CUSTOM) What to do if you are sick with coronavirus disease 2019 (COVID-19) If you are sick with COVID-19 or suspect you are infected with the virus that causes COVID-19, follow the steps below to help prevent the disease from spreading to people in your home and communityStay home except to get medical care You should restrict activities outside your home, except for getting medical care. Do not go to work, school, or public areas. Avoid using public transportation, ride-sharing, or taxis. Separate yourself from other people and animals in your home People: As much as possible, you should stay in a specific room and away from other people in your home. Also, you should use a separate bathroom, if available. Animals: Do not handle pets or other animals while sick. See COVID-19 and Animals for more information. Call ahead before visiting your doctor If you have a medical appointment, call the healthcare provider and tell them that you have or may have COVID-19. This will help the healthcare provider???s office take steps to keep other people from getting infected or exposed. Wear a facemask You should wear a facemask when you are around other people (e.g., sharing a room or vehicle) or pets and before you enter a healthcare provider???s office. If you are not able to wear a facemask (for example, because it causes trouble breathing), then people who live with you should not stay in the same room with you, or they should wear a facemask if they enter your room. Cover your coughs and sneezes Cover your mouth and nose with a tissue when you cough or sneeze. Throw used tissues in a lined trash can; immediately wash your hands with soap and water for at least 20 seconds or clean your hands with an alcohol-based hand oil well service operator that contains at least 60-95% alcohol covering all surfaces of your hands and rubbing them together until they feel dry. Soap and water should be used preferentially if hands are visibly dirty. Avoid sharing personal household items You should not share dishes, drinking glasses, cups, eating utensils, towels, or bedding with otherpeople or pets in your home. After using these items, they should be washed thoroughly with soap and water. Clean your hands often Wash your hands often with soap and water for at least 20 seconds. If soap and water are not available, clean your hands with an alcohol-based hand oil well service operator that contains at least 60% alcohol, covering all surfaces of your hands and rubbing them together until they feel dry. Soap and water should be used preferentially if hands are visibly dirty. Avoid touching your eyes, nose, and mouth with unwashed hands. Clean all ???high-touch?? surfaces every day High touch surfaces include counters, tabletops, doorknobs, bathroom fixtures, toilets, phones, keyboards, tablets, and bedside tables. Also, clean any surfaces that may have blood, stool, or body fluids on them. Use a household cleaning spray or wipe, according to the label instructions. Labels contain instructions for safe and effective use of the cleaning product including precautions you should take when applying the product, such as wearing gloves and making sure you have good ventilation during use of the product. Monitor your symptoms Seek prompt medical attention if your illness is worsening (e.g., difficulty breathing). Before seeking care, call your healthcare provider and tell them that you have, or are being evaluated for, COVID-19. Put on a facemask before you enter the facility. These steps will help the healthcare provider???s office to keep other people in the office or waiting room from getting infected or exposed. Ask your healthcare provider to call the local or state health department. Persons who are placed under active monitoring or facilitated self-monitoring should follow instructions provided by their local health department or occupational health professionals, as appropriate. If you have a medical emergency and need to call 911, notify the dispatch personnel that you have, or are being evaluated for COVID-19. If possible, put on a facemask before emergency medical services arrive. Discontinuing home isolation Patients with confirmed COVID-19 should remain under home isolation precautions until the risk of secondary transmission to others is thought to be low. The decision to discontinue home isolation precautions should be made on a qcml-ar-fogq basis, in consultation with healthcare providers and [facility] and [facility] health departments. CS [id number] 05/23/2019 Follow Up Care 03/16/2022 17:33:06 With:Hermes Ramirez MD Address: [address] [place] [address] [address] [place] [address]- When:24 Hours Comments:Call your doctor first thing tomorrow to arrange for??outpatient remdesivir infusions.If you have chest pain, increasing shortness of breath,??vomiting or new concerning symptoms, return to the emergency department. 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 She states she has also had 2 days of sore throat and cough. ??She has been exposed to somebody with COVID.?? Shedenies fever, chills, shortness of breath, chest pain,??dysuria, vomiting and diarrhea.??She has been immunized for COVID and??influenza.?? She states that she just started her menses and??believes that??triggered her migraine. Review of Systems: Constitutional:?No??fevers,?No??chills Eye:?No??recent visual problems ENT:?No??ear pain,?Positive for??nasal congestion,?Positive for??sore throat Respiratory:?No??shortness of breath,?Positive for??cough Cardiovascular:?No??Chest pain,?No??palpitations,?No??syncope Gastrointestinal:?Positive fornausea,?No??vomiting,?No??diarrhea Genitourinary:?No??hematuria, no dysuria Musculoskeletal:??No??back pain,??No??neck pain,??No??joint pain,??No??muscle pain,??No??decreased range of motion Integumentary:?No??rash,?No??pruritus,?No??abrasions Neurologic: No weakness, no numbness, positive for headache Physical Exam Vitals & Measurements T:??37.1?C ??(Oral)?? HR:??85??(Peripheral)?? RR:??20?? BP:??144/92?? SpO2:??99%?? HT:??157.480??cm?? WT:??77.11??kg??(Estimated)?? Pain Score:??8?? O2 Therapy:??Room air?? General: Alert and oriented, well nourished,?Mild??acute distress Eye: PERRL, EOMI,?Normal??conjunctiva HENT: Normocephalic, moist oral mucosa,?No??scleral icterus Neck: Supple, non-tender Lungs: Clear to auscultation,?Non-labored?? respiration Heart:?Normal?? rate,?Regular??rhythm,?No??murmur,?No??gallop,?No??edema Musculoskeletal:?Normal?? range of motion and strength,?No??tenderness,?No??swelling Skin: Skin is warm, dry and pink,?No??rashes,?No??lesions Neurologic: Awake, alert and oriented X4, CN II-XII intact Psychiatric: Cooperative, appropriate mood and affect Medical Decision Makin:??Patient repeatedly asked for more narcotic pain medication because the??given medicines do not help her migraine.?? I explained to her that??narcotics play no role??in the treatment of migraines.?She states that she has butalbital??and??tramadol pills at home but??cannot take anything with??Tylenol in them. Procedure No Qualifying Data Assessment/Plan 1.??Intractable chronic migraine without aura??G43.719 2.??COVID-19??U07.1 High risk ??for complications from Covid 19??due to??her immunosuppression.??No hypoxia or respiratory??distress. ??200 mg??remdesivir??given IV??and 75 mg??of oseltamavir??given orally.?? Will need to continue remdesivir and outpatient basis. 3.??History of kidney transplant??Z94.0 GFR consistently in the 40s. 4.??History of liver transplant??Z94.4 5.??Influenza B??J10.1 Given her chronic renal failure, should continue with??4 more days of oseltamavir 30 mg daily. Orders: oseltamivir 30 mg oral capsule, 30 mg = 1 cap, Oral, BID, # 10 cap, 0 Refill(s), Pharmacy: [facility] [place], [place], 157.48, cm, 03/16/22 18:01:00 [facility], Height/Length Dosing, 77.11, kg, 03/16/2218:01:00 [facility], Weight Dosing Discharge Patient, 03/16/22 22:07:00 [facility], Home Independently, Constant Indicator Patient Discharge Condition Good Discharge Disposition Home Patient Education Influenza, Adult COVID-19 ??? CDC (Vietnamese) (CUSTOM) Follow Up With When Contact Information Hermes Ramirez MD Within [address] [place] [address], [address] [place] [address]- Additional Instructions: Call your doctor first thing tomorrow to arrange for??outpatient remdesivir infusions. ?? If you have chest pain, increasing shortness of breath,??vomiting or new concerning symptoms, return to the emergency department. Medication Reconciliation New Prescription oseltamivir (oseltamivir 30 mg oral capsule)1 Capsules Oral (given by mouth) 2 times a day. Refills: 0. ?? Unchanged albuterol (albuterol 90 [...] 50 mg, IM morphine, 4 mg, IM oseltamivir, 75 mg, Oral Phenergan, 25 mg, IM remdesivir + Sodium Chloride 0.9% 250 mL, IV Piggyback Allergies NSAIDs Toradol??(Kidney failure as a complication of care) aspirin??(Medication interaction) azithromycin??(Unknown) codeine??(Unknown, Itching) gentamicin erythromycin??(Medication interaction) Social History Alcohol Never Electronic Cigarette/Vaping Electronic Cigarette Use: Never. Substance Use Never Tobacco 5-9 cigarettes (between 1/4 to 1/2 pack)/day in last 30 days Tobacco Use:. Family History Cancer: Mother. Lab Results Infectious Disease?? LATEST RESULTS?? HISTORICAL RESULTS?? Influenza A?? 03/16/22 18:28?? Negative?? 02/16/22?? Negative?? Influenza B?? 03/16/22 18:28?? Positive Abnormal?? 02/16/22?? Negative?? Streptococcus A?? 03/16/22 18:28?? Negative?? 03/01/22?? Negative?? Employed in healthcare??? 03/16/22 18:28?? No?? 02/16/22?? No?? Hospitalized due to COVID-19??? 03/16/22 18:28?? No?? 02/16/22?? No?? In ICU??? 03/16/22 18:28?? No?? 02/16/22?? No?? Group care resident??? 03/16/22 18:28?? No?? 02/16/22?? No?? status??? 03/16/22 18:28?? Not ?? 02/16/22?? Unknown?? SARS-CoV-2 (COVID-19) ([facility])?? 03/16/22 18:28?? Positive Abnormal?? 02/16/22?? Negative? Electronically Signed on 03/16/22 10:08 PM Akil Casas MD Patient Care team information Personnel Name: Hermes Ramirez MD Address: Address: [address] [place] [address], [address] [place] [id number]
--- OUTSIDE RECORDS SUMMARY | 2024-03-20 11:39 | XMS_ITS | Continuity of Care Document ---
[facility] [address] [place] [address]- Care Team Providers Care Cd Technician Name Role Phone Hermes Ramirez Primary Care Physician Encounter [facility] [id number] Date(s): 12/25/23 - 12/25/23 [facility] [address] [place] [address]- Encounter Diagnosis Knee contusion(Discharge Diagnosis) - 12/25/23 Low back sprain(Discharge Diagnosis) - 12/25/23 Hip sprain(Discharge Diagnosis) - 12/25/23 Discharge Disposition: Home or Self Care Attending [...] from: Title:Office Visit Note Author:Philip Ramirez MD Date:12/25/23 1.??Knee contusion??S80.00XA ??Continue expectant management. ??Forms for work filled out.?? 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 Notify if knee not improving over next several weeks??and would consider MRI in that case. 2.??Low back sprain??S33.5XXA ??Continue expectant management. ??As above. 3.??Hip sprain??S73.109A ??As above. Future Appointments Future Scheduled Tests Radiology* MG [...] Daily, # 30 tab, 11 Refill(s), Pharmacy: [place], [place], 157.48, cm, 01/04/23 15:03:00 CDT, Height/Length Dosing, 81.65, kg, 01/04/23 15:03:00 CDT, Weight Dosing Start Date: 01/11/23 Status: Ordered aspirin 81 mg oral delayed release tablet 81 mg = 1 tab, Oral, Daily, # 30 tab, 0 Refill(s) Start Date: 04/05/21 Status: Ordered gabapentin 300 mg oral capsule 600 mg = 2 cap, Oral, BID, # 120 cap, 2 Refill(s), Pharmacy: [id number]- [place], 157.48, cm, 07/23/23 17:59:00 CDT, Height, 88.45, [...] BID, # 60 cap, 11 Refill(s), [facility] [facility] [place], 157.48, cm, 01/04/23 15:03:00 CDT, Height/Length Dosing, 81.65, kg, 01/04/23 15:03:00 CDT, Weight Dosing Start Date: 01/11/23 Status: Ordered Nicotrol Inhaler 10 mg inhalation device See Instructions, 6-16 cartriges/day, # 1 EA, 2 Refill(s), Pharmacy: [id number], 157.48, cm, 08/29/23 14:22:00 CDT, Height, 88, kg, 08/29/23 14:27:00 CDT, Weight Dosing Start Date: 08/29/23 Status: Ordered pantoprazole 40 mg oral delayed release tablet 1 tab, Oral, Daily, # 90 tab, 0 Refill(s), Pharmacy: [id number], 157.48, cm, 06/07/23 16:07:00 CDT, Height, 89.36, [...] QID, # 360 tab, 0 Refill(s), Pharmacy: [id number], 157.48, cm, 08/29/23 14:22:00 CDT, Height, 88, kg, 08/29/23 14:27:00 CDT, Weight Dosing Start Date: 09/05/23 Status: Ordered venlafaxine 37.5 mg oral capsule, extended release 37.5 mg = 1 cap, Oral, Daily, # 90 cap, 0 Refill(s), Pharmacy: [id number]- [place], 157.48, cm, 09/28/23 18:18:00 CDT, Height, 81.65, [...] biliary atresia Confirmed Active Constipation Confirmed Active Knee contusion Confirmed Active Degenerative disc disease, cervical Confirmed [...] Deg C] 3 6.5 Deg C *LOW* (12/25/23 8:46 AM) Peripheral Pulse Rate [60-100 bpm] 72 bp m (12/25/23 8:46 AM) Respiratory Rate [12-24 br/min] 18 br/mi n (12/25/23 8:46 AM) Blood Pressure [90-120/60-80 mmHg] 122/8 2mmHg *HI* (12/25/23 8:46 AM) Mean Arterial Pressure, Cuff [65-140 mmH g] 95 mmHg (12/25/23 8:46 AM) Weight 91.63 kg (12/25/23 8:46 AM) Weight Measured (lbs) 202.009 lb (12/25/23 8:46 AM) Weight Dosing 91.630 kg (12/25/23 8:46 AM) Height 157.48 cm (12/25/23 8:46 AM) Height/Length Measured (inches) 62 inch (12/25/23 8:46 AM) BSA Measured 2 m2 (12/25/23 8:46 AM) Body Mass Index 36.95 kg/m2 (12/25/23 8:46 AM) Social History Social History Type Response Tobacco Current everyday tob acco user Tobacco Use:. Sex Sex Representation Female (finding) Physician Outpatient Note * Hermes Ramirez MD: PERFORM Event Display: Office Clinic Note Physician Authored Date: [id number] MISHA JACKSON :1980 Age:43 years Sex:Female Visit Date:12/25/2023 Primary Care Physician: Hermes Ramirez MD Chief Complaint Pt here and states she fell this past monday at work in the parking lot. States the wind blew in her hair and she tripped and hit the concrete. 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 States the wind blew in her hair and she tripped and hit the concrete. (12/25/23 08:46:00).?? She struck her right knee greater than her left. ??She felt pain in both knees, hips, spine, shoulders.?? [facility] as well as??CT scan of her hips and??lumbar spine.?? She reports that they were negative.?? ER records requested.?? They gave her morphine and Skelaxin in the emergency room.?? She is still sore??but is able to ambulate??and actually went back to work this morn ing.?? 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 She feels she is able to work at this point. Review of Systems Constitutional:?No??fevers Respiratory:?No??shortness of breath Cardiovascular:?No??Chest pain Gastrointestinal:?No??abd pain Physical Exam Vitals & Measurements T:??36.5?C ??(Tympanic)?? HR:??72??(Peripheral)?? RR:??18?? BP:??122/82?? SpO2:??99%?? HT:??157.48??cm?? WT:??91.63??kg?? BMI:??36.95?? Pain Score:??7?? BSA:??2?? General: Alert and oriented, well nourished,?No??acute distress Lungs: Clear to auscultation,?Non-labored?? respiration Heart:?Normal? rate,?Regular??rhythm,?No??murmur,?No??gallop MS:??Patient with bruising of the right and left knees.?? Right greater than left. ??Pain on palpation of the right knee??but she does have full range of motion and is able to bear weight.?? Some pain on palpation of the??neck musculature, low back musculature??and shoulder musculature.?? Range of motion normal.?? Hip range of motion normal. Assessment/Plan 1.??Knee contusion??S80.00XA ??Continue expectant management. ??Forms for work filled out.?? 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 Notify if knee not improving over next several weeks??and would consider MRI in that case. 2.??Low back sprain??S33.5XXA ??Continue expectant management. ??As above. 3.??Hip sprain??S73.109A ??As above. Problem List/Past Medical History Ongoing Acne Anxiety [...] Hx of migraine headaches Idiopathic thrombocytopenic purpura Knee contusion Low back sprain Lumbar back pain Migraine [...] mg= 1 cap, Oral, BID, 11 refills Nicotrol Inhaler 10 mg inhalation device, [...] (Tdap) adult/adol 05/25/2012 Recorded Electronically Signed on 12/25/2023 09:15 CDT Hermes Ramirez MD Patient Care team information Care Team Personnel Name: Jessee Jones FRONT TENDER Position: Physician Member Role: Nurse Practitioner Address: [address] [facility], [address] [place] [address]- [place] Name: Latoya Marquez FRONT TENDER Position: Physician Member Role: Nurse Practitioner Address: [address] [place] [address]- [place] Name: Leonila Gonzalez FRONT TENDER Position: Physician Member Role: Nurse Practitioner Address: [address] [place] [facility] [place] [address]- [place] Name: Beth Brandt FRONT TENDER Position: Physician Member Role: Nurse Practitioner Address: [address] [place] [facility] [place] [address] [place] Name: Hermes Ramirez MD Position: Physician Member Role: Informed Provider Address: [address] [facility], [address] [place] [address]- Name: Pillo Moe FRONT TENDER Position: Physician Member Role: Nurse Practitioner Address: [address] [facility], [address] [place], [place] Care Team Related Persons Name: STACIA JONES Name: ROBYN JAMA Name: NAIF CHOI Name: MADY CHEN Name: MADY CHEN Insurance Providers Guarantor name: MISHA JACKSON Health Plan Information #: 1 Payer: MISC Workers Comp Member Number: [id number] Policy Number: Health Plan Information #: 2 Payer: [employer] M[employer] CARE Member Number: [id number] Policy Number: Health Plan Information #: 3 Payer: FINANCIAL ASSISTANCE APPROVED Member Number: NA Policy Number: NA
--- OUTSIDE RECORDS SUMMARY | 2024-03-20 11:39 | XMS_ITS | Continuity of Care Document ---
Author Organization [facility] Address [address] [place] [address] Care Team Providers Care Unemployment Benefits Claims Taker Name Role Phone Hermes Ramirez Primary Care Physician [phone] Encounter [facility] [id number] Date(s): 08/23/21 - 08/23/[address] [address] [place] Encounter Diagnosis Migraine headache(Discharge Diagnosis) - 08/23/21 Discharge Disposition: Home or Self Care Attending [...] Spine Cervical w/o Contrast 06/24/21 Functional Status 08/23/21 Recent Travel History No recent travel Other [...] BID, # 180 tab, 3 Refill(s), Pharmacy: [place], [place], 157, cm, 10/22/20 21:26:00 CDT, Height/Length [...] Oral [35.8-37.3 Deg C] 37.1 Deg C (08/23/21 9:09 AM) Peripheral Pulse Rate [60-100 bpm] 74 bp m (08/23/21 9:09 AM) Respiratory Rate [12-24 br/min] 18 br/mi n (08/23/21 10:10 AM) 18 br/min (08/23/21 9:09 AM) Blood Pressure [90-140/60-90 mmHg] 139/8 3mmHg (08/23/21 10:10 AM) 151/99mmHg *HI* (08/23/21 9:09 AM) Weight Dosing 74.84 kg (08/23/21 9:30 AM) Weight Estimated 74.84 kg (08/23/21 9:09 AM) Height/Length Dosing 157.480 cm (08/23/21 9:30 AM) Height/Length Estimated 157.480 cm (08/23/21 9:09 AM) Social History Social History Type Response Smoking Status 5-9 cigarettes (betw een 1/4 to 1/2 pack)/day in last 30 days entered on: 05/12/21 Sex Hospital Discharge Instructions Patient Education 08/23/2021 10:05:34 Migraine Headache, Aiug-zt-Uvyb Migraine Headache A migraine headache is a [...] these instructions at home: Medicines ??? Take ufwt-iil-bqxjgxp and prescription medicines only as told by your doctor. ??? Ask your doctor if the medicine prescribed to you: ??? Requires you to avoid driving or using heavy machinery. ??? Can cause trouble pooping (constipation). You may need to take these steps to prevent or treat trouble pooping: ??? Drink enough fluid to keep your pee (urine) pale yellow. ??? Take nvfk-fri-adxrdqe or prescription medicines. ??? Eat foods that [...] provider. Document Revised: 06/28/2019 Document Reviewed: 04/18/2019 [employer] Patient Education ?? 2020 [employer] Follow Up Care 08/23/2021 09:09:33 With:Follow up with primary care provider Address: When:5 to 7 days Care Team Personnel Name: Hermes Ramirez MD Address: [address] [place] [address], [address] [place], [place] [address]
--- OUTSIDE RECORDS SUMMARY | 2024-03-20 11:39 | XMS_ITS | Continuity of Care Document ---
Author Organization [facility] [address] [place] [address]- Care Team Providers Care Lace Paper Machine Operator Name Role Phone Hermes Ramirez Primary Care Physician [phone] Encounter [facility] [id number] Date(s): 06/28/21 - 06/28/21 [facility] [address] [place] [address]- Encounter Diagnosis Right otitis externa(Discharge Diagnosis) - 06/28/21 Rash(Discharge Diagnosis) - 06/28/21 Discharge Disposition: Home or Self Care Attending Physician: Jessee Jones WIRE STITCHER Allergies, Adverse Reactions, Alerts Substance Reaction Severity Status gentamicin Moderate Active erythromycin Medication interaction Activ e aspirin Medication interaction Activ e Toradol Kidney failure as a complication of care Active NSAIDs Severe Active Assessment and Plan Future Appointments Future Scheduled Tests Radiology* MRI Spine Cervical w/o Contrast 06/11/21 * MRI Spine Cervical w/o Contrast 06/24/21 Functional Status 06/28/21 Other exposure to Infectious Disease Non e [...] mL, 0 Refill(s), 07/05/21 9:55:00 CDT, Pharmacy: [place], [place], 157.48, cm, 06/23/21 20:03:00 CDT, Height/Length [...] BID, # 180 tab, 3 Refill(s), Pharmacy: [place], [place], 157, cm, 10/22/20 21:26:00 CDT, Height/Length [...] g, 0 Refill(s), 07/05/21 9:56:00 CDT, Pharmacy: [facility] [place], [place], 157.48, cm, 06/23/21 20:03:00 CDT, Height/Length [...] [35.8-37.3 Deg C] 37 De g C (06/28/21 9:22 AM) Peripheral Pulse Rate [60-100 bpm] 79 bp m (06/28/21 9:22 AM) Respiratory Rate [12-24 br/min] 18 br/mi n (06/28/21 9:22 AM) Blood Pressure [90-140/60-90 mmHg] 122/6 4mmHg (06/28/21 9:22 AM) Weight 79.83 kg (06/28/21 9:22 AM) Weight Measured (lbs) 175.995 lb (06/28/21 9:22 AM) Social History Social History Type Response Smoking Status 5-9 cigarettes (betw een 1/4 to 1/2 pack)/day in last 30 days entered on: 05/12/21 Sex Care Team Personnel Name: Hermes Ramirez MD Address: [address] [place] [address], [address]
--- OUTSIDE RECORDS SUMMARY | 2024-03-20 11:39 | XMS_ITS | Continuity of Care Document ---
Author Organization Counts include 234 beds at the [facility] Address [address] [place] [address] Care Team Providers Care Aviation Electrician Name Role Phone Hermes Ramirez Primary Care Physician Encounter [facility] [id number] Date(s): 07/08/22 - 07/08/[address] [address] Encounter Diagnosis Intractable migraine(Discharge Diagnosis) - 07/08/22 Discharge Disposition: Home or Self Care Attending [...] wheezing, # 6.7 g, 0 Refill(s), Pharmacy: [place], [place], 73, cm, 09/13/21 23:53:00 CDT, Height/Length [...] needed, # 12 cap, 0 Refill(s), Pharmacy: [place], [place], 157, cm, 11/04/21 20:02:00 CDT, Height/Length [...] BID, # 180 tab, 3 Refill(s), Pharmacy: [facility], 157.48, cm, 02/07/22 18:45:00CST, Height/Length Dosing, 72.57, kg, 02/07/22 18:45:00 FIRE MARSHAL, Weight Dosing Start Date: 02/13/22 Status: Ordered Pepcid 20 mg oral tablet 20 mg = 1 tab, Oral, BID, 0 Refill(s) Start Date: 09/29/20 Status: Ordered Phenergan 25 mg oral tablet 25 mg = 1 tab, Oral, every 6 hr, PRN as needed for nausea/vomiting, # 20 tab, 0 Refill(s), Pharmacy: [facility] [place], [place], 157, cm, 09/29/21 23:03:00 CDT, Height/Length Dosing, [...] Range]: 1 Peripheral Pulse Rate [60-100 bpm] 76 bp m (07/08/22 8:01 PM) Respiratory Rate [12-24 br/min] 20 br/mi n (07/08/22 8:01 PM) Blood Pressure [90-140/60-90 mmHg] 141/9 6mmHg *HI* (07/08/22 8:01 PM) Weight 81.00 kg (07/08/22 8:01 PM) Weight Dosing 81.00 kg (07/08/22 9:42 PM) Height 157.000 cm (07/08/22 8:01 PM) Height/Length Dosing 157.000 cm (07/08/22 9:42 PM) Body Mass Index 33.000 kg/m2 (07/08/22 8:01 PM) Social History Social History Type Response Tobacco Current everyday tob acco user Tobacco Use:. Sex Hospital Discharge Instructions Patient Education 07/08/2022 20:15:17 Chronic Migraine Headache, Xxsh-vu-Aust Chronic Migraine Headache A migraine headache is [...] these instructions at home: Medicines ??? Take zcbd-ztx-gsxrkgm and prescription medicines only as told by [...] Headache and Migraine Patients (CHAMP): headachemigraine.org ??? [place] Migraine Foundation: americanmigrainefoundation.org ??? National Headache Foundation: [...] Reviewed: 04/22/2020 Elsevier Patient Education ?? 2021 [employer] Follow Up Care 07/08/2022 20:00:59 With:Follow up with primary care provider Address: When:5 to 7 days Physician Emergency department Note * Felicia Roach MD: PERFORM Event Display: ED Note Physician Authored Date: [id number] MISHA JACKSON :1980 Age:41 years Sex:Female Visit Date:07/08/2022 Primary Care Physician: Hermes Ramirez MD Basic Information Time Seen: Felicia Roach MD / 07/08/2022 20:12 History Of Present Illness: This is a case of a 41-year-old female??who frequents the ER maybe once or twice a week for multiple pain complaints, returns to the ED with a recurrent headache.?? 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 Review of Systems: Constitutional:?No??fevers,?No??chills,?No??sweats Eye:?No??recent visual problems [...] bruits,?No??JVD,?No??lymphadenopathy Lungs:??Clear to auscultation?? Respiration:??Non-Labored Heart:?Normal? rate,?Regular??rhythm,?No??murmur,?No??gallop,?No??edema ?? Abdomen: Soft, non-tender, non-distended,?Normal? bowel sounds,?No??masses Musculoskeletal:?Normal? range of motion and strength,?No??tenderness,?No??swelling Skin: Skin is warm, dry and pink,?No??rashes,?No??lesions Neurologic: Awake, alert and oriented X4, CN II-XII intact Psychiatric: Cooperative, appropriate mood and affect Procedure No Qualifying Data Assessment/Plan 1.??Intractable migraine??G43.919 Ice to follow-up with PCP Orders: Benadryl, 50 mg = 1 mL, IM, Injection, Once, First Dose: 07/08/22 20:12:00 CDT, Stop Date: 07/09/2319:12:00 CDT, Physician Stop morphine, 2 mg = 1 mL, IM, Injection, Once, First Dose: 07/08/22 20:12:00 CDT, Stop Date: 07/08/22 20:12:00 CDT, Physician Stop Phenergan, 25 mg = 1 mL, IM, Injection, Once, First Dose: 07/08/22 20:12:00 CDT, Stop Date: 07/08/22 20:12:00 CDT, Physician Stop Patient Discharge Condition Stable Discharge Disposition Discharge to home Patient Education Chronic Migraine Headache, Stav-mg-Otra Follow Up With When Contact Information Follow [...] 2 times a day. Refills: 3. ?? Other Prescription (Sod Bicarb Tab 10gr [...] Mother. Attending Attestation Stable Electronically Signed on 07/08/22 08:16 PM Felicia Roach MD Patient Care team information Care Team Personnel Name: Jessee Jones AMORTIZATION CLERK Position: Physician Member Role: Nurse Practitioner Address: Address: [address] [place] [address] Name: Latoya Marquez AMORTIZATION CLERK Position: Physician Member Role: Nurse Practitioner Address: Address: [address] [place] [address] Name: Leonila Gonzalez AMORTIZATION CLERK Position: Physician Member Role: Nurse Practitioner Address: Address: [address] [place] [address] Name: Beth Brandt AMORTIZATION CLERK Position: Physician Member Role: Nurse Practitioner Address: Address: [address] [place] [address] Name: Hermes Ramirez MD Position: Physician Member Role: Informed Provider Address: Address: [address] [place] [address] Name: Pillo Moe AMORTIZATION CLERK Position: Physician Member Role: Nurse Practitioner Address: Address: [address] [place] [address] Name: Felicia Roach MD Position: Physician Member Role: Informed Provider Address: Address: [address] [place] [address] Name: Tori Villalpando RN Position: Nurse Member Role: Registered Nurse Care Team Related Persons Name: STACIA JONES Address: Home [address] [phone] Name: ROBYN JAMA Address: Home
--- OUTSIDE RECORDS SUMMARY | 2024-03-20 11:39 | XMS_ITS | Continuity of Care Document ---
Author Organization [facility] Address [address] [place] [address]- Care Team Providers Care Carton Forming Machine Helper Name Role Phone Hermes Ramirez Primary Care Physician Encounter [facility] MARILU[facility] [id number] Date(s): 02/07/22 - 02/07/22 [facility] [address] [place], [place] [address] Encounter Diagnosis Health education/counseling(Discharge Diagnosis) - 02/07/22 Discharge Disposition: Home or [...] 0 Refill(s), Pharmacy: [facility] [place], [place], 73, cm, 09/13/21 23:53:00 CDT, Height/Length [...] needed, # 12 cap, 0 Refill(s), Pharmacy: [place], [place], 157, cm, 11/04/21 20:02:00 CDT, Height/Length [...] BID, # 180 tab, 3 Refill(s), Pharmacy: [place], [place], 157, cm, 10/22/20 21:26:00 CDT, Height/Length [...] nausea/vomiting, # 20 tab, 0 Refill(s), Pharmacy: [facility] [place], [place], 157, cm, 09/29/21 23:03:00 CDT, Height/Length [...] Oral [35.8-37.3 Deg C] 36.8 Deg C (02/07/22 9:08 AM) Peripheral Pulse Rate [60-100 bpm] 72 bp m (02/07/22 9:08 AM) Respiratory Rate [12-24 br/min] 18 br/mi n (02/07/22 9:08 AM) Blood Pressure [90-140/60-90 mmHg] 112/7 0mmHg (02/07/22 9:08 AM) Weight 82.55 kg (02/07/22 9:08 AM) Weight Measured (lbs) 181.991 lb (02/07/22 9:08 AM) Social History Social History Type Response Tobacco Current some day tob acco user Tobacco Use:. Sex Hospital Discharge Instructions Follow Up Care 02/05/2022 03:05:09 With:Jessee Jones ATV MECHANIC Address: [address] [place] [address] [address] [place] [address]- [phone] When: only if needed Physician Outpatient Note * Jessee Jones ATV MECHANIC: PERFORM Event Display: Office Clinic Note Physician Authored Date: [id number] MISHA JACKSON :1980 Age:41 years Sex:Female Visit Date:02/07/2022 Primary Care Physician: Hermes Ramirez MD Chief Complaint Pt here to discuss COVID exemption paper. History of Present Illness Patient presents to the clinic today requesting??a COVID exemption paper be signed??so that she does not have to get the COVID vaccination for work.?? Patient reports that she just does not want to get??the vaccination.?? She denies any type of anaphylactic reaction to??immunizations.?? Patient??[facility] liver transplant recipient.?? Patient reports that her doctors in [place]??want her to get the vaccination. ??She reports that she has had COVID twice. Review of Systems Constitutional:?No??fevers,?No??chills ENT:?No??ear pain,?No??nasal congestion,?No??sore throat,??No??runny nose Respiratory:?No??shortness of breath,?No??cough Cardiovascular:?No??Chest pain Gastrointestinal:?Nonausea,?No??vomiting,?No??diarrhea Integumentary:?No??rash Neurologic:??Alert & oriented X 4 Musculoskeletal:??Continued back pain??and neck pain. Psych:??Continued anxiety. Physical Exam Vitals & Measurements T:??36.8?C ??(Oral)?? HR:??72??(Peripheral)?? RR:??18?? BP:??112/70?? SpO2:??99%?? WT:??82.55??kg?General: ??Patient is alert and oriented to person, place, and time. ??Patient is cooperative with exam. ?? Skin, hair, and nails: ??Skin color is pink, and is warm and dry to touch. ??Skin turgor is good.? Head: No sinus tenderness. ? Eyes: ??Conjunctivae clear, sclerae white. ??No drainage. ??Pupils are equal and reactive to light. ?? ENT: ?? Bilateral ear canals clear with no redness, swelling, lesions, foreign body, or discharge. ??Tympanic membranes pearly chambers in color with light reflex present and landmarks intact with no perforations. ??Mucous membranes pink, no discharge. ??Nares patent. ??Lips, buccal mucosa and gums pink and moist. ??Swallowing intact. ??Uvula rises midline on phonation. ??Tonsils pink without exudate. ??Posterior pharynx pink without drainage. ??Tongue protrudes midline and is pink.? Neck: ??Neck is symmetric with the trachea midline. ??No lymphadenopathy noted. ? Respiratory: ??Nonlabored respirations with bilateral chest expansion. ??Breath sounds are clear inall lung le bilaterally. ??No adventitious sounds. ?? Cardiovascular: ??S1-S2 present with no gallops, rubs, or murmurs. ??No S3 or S4 heard. ? Abdomen: ??Bowel sounds present and active. ??No tenderness upon palpation.?? Assessment/Plan 1.??Health education/counseling??Z71.9 I discussed with patient that since she does not have a??history of anaphylactic reaction??to??the immunization or its ingredients,??that I am unable to provide her with an exemption??for the COVID vaccination.?? Education done??on??the COVID-vaccine and the benefits of it.?? Patient continues to decline.?? I told her that she could reach out to her team of physicians in [place]??that did her transplant. ??She reports that they are wanting her to get vaccinated as well.?She reports that she will likely go to another??doctor's office??that has told her for $350 they would give her one. Follow Up Instructions With When Contact Information Jessee Jones NP Only if needed [facility], [address] [place] [address]- [phone] Additional Instructions: Problem List/Past Medical History Ongoing Abdominal pain [...] tablet, 81 mg= 1 tab, Oral, Daily butalbital/acetaminophen/caffeine 50 mg-300 mg-40 mg oral capsule, 1 cap, Oral, every 4 hr, PRN gabapentin 300 mg oral capsule LORazepam 0.5 mg oral tablet Metoprolol Tartrate 25 mg oral tablet, 25 mg= 1 tab, Oral, BID, 3 refills Pepcid 20 mg oral tablet, 20 mg= 1 tab, Oral, BID Phenergan 25 mg oral tablet, 25 mg= 1 tab, Oral, every 6 hr, PRN tacrolimus 1 mg oral capsule, extended release, 3 mg= 3 cap, Oral, Daily Topamax 25 mg oral [...] (Tdap) adult/adol 05/25/2012 Recorded Electronically Signed on 02/07/22 02:54 PM Jessee Jones NP Patient Care team information Personnel Name: Hermes Ramirez MD Address: Address: [address] [place] [address], [address]
--- OUTSIDE RECORDS SUMMARY | 2024-03-20 11:40 | XMS_ITS | Continuity of Care Document ---
Author Organization [facility] Address [address] [place] [address] Care Team Providers Care Insurance Billing Clerk Name Role Phone Hermes Ramirez Primary Care Physician Encounter [facility] [id number] Date(s): 01/25/24 - 01/25/[address] [address]- [place] Encounter Diagnosis Chronic neck pain(Discharge Diagnosis) - 01/25/24 Other chronic pain(Discharge Diagnosis) - 01/25/24 Benign hypertension(Discharge Diagnosis) - 01/25/24 Discharge Disposition: Home or Self Care Attending [...] from: Title:ED Provider Note Author:Mauricio Limon MD Date:01/25/24 Assessment/Plan Chronic neck pain??M54.2 Other chronic pain??G89.29 Orders: diphenhydrAMINE, 25 mg = 0.5 mL, Intramuscular, Injection, Once, First Dose: 01/25/24 19:00:00 SPECIAL AGENT FBI, Stop Date: 01/25/24 19:00:00 SPECIAL AGENT FBI, Physician Stop, Routine morphine, 4 mg = 1 mL, Intramuscular, Injection, Once, First Dose: 01/25/24 19:00:00 SPECIAL AGENT FBI, Stop Date: 01/25/24 19:00:00 SPECIAL AGENT FBI, Physician Stop, Routine Patient Discharge Condition Stable condition Discharge Disposition Will be discharged home Follow Up With When Contact Information Follow up with primary care provider Within 3 to 5 days Additional Instructions: Future Appointments Future Scheduled [...] Daily, # 30 tab, 11 Refill(s), Pharmacy: [place], [place], 157.[address], cm, 01/04/23 15:03:00 CDT, Height/Length Dosing, 81.65, kg, 01/04/23 15:03:00 CDT, Weight Dosing Start Date: 01/11/23 Status: Ordered amoxicillin 875 mg oral tablet 875 mg = 1 tab, Oral, BID, # 14 tab, 0 Refill(s), Pharmacy: [id number]- [place], 157.48, cm, 01/01/24 14:49:00 CDT, Height, 87.09, [...] BID, # 120 cap, 2 Refill(s), Pharmacy: [id number] [place], 157.48, cm, 07/23/23 17:59:00 CDT, Height, [...] BID, # 60 cap, 11 Refill(s), Pharmacy: [place], [place], [address], cm, 01/04/23 15:03:00 CDT, Height/Length Dosing, 81.65, kg, 01/04/23 15:03:00 CDT, Weight Dosing Start Date: 01/11/23 Status: Ordered morphine 2 mg/mL preservative-free injectable solution 2 mg = 1 mL, Intramuscular, Once, 0 Refill(s) Start Date: 01/14/24 Status: Ordered nicotine 21 mg/24 hr transdermal film, extended release 1 patches, Transdermal, Daily, # 14 patches, 1 Refill(s), [facility]: [id number], 157.48, cm, 01/01/24 14:49:00 CDT, Height, 87.09, kg, 01/01/24 14:53:00 CDT, Weight Dosing Start Date: 01/01/24 Status: Ordered Nicotrol Inhaler 10 mg inhalation device See Instructions, 6-16 cartriges/day, # 1 EA, 2 Refill(s), [facility] [place], 157.48, cm, 08/29/23 14:22:00 CDT, Height, 88, kg, 08/29/23 14:27:00 CDT, Weight Dosing Start Date: 08/29/23 Status: Ordered pantoprazole 40 mg oral delayed release tablet 1 tab, Oral, Daily, # 90 tab, 0 Refill(s), [facility]acy: [id number], 157.48, cm, 06/07/23 16:07:00 CDT, Height, 89.36, [...] QID, # 360 tab, 0 Refill(s), [id number], 157.48, cm, 08/29/23 14:22:00 CDT, Height, 88, kg, 08/29/23 14:27:00 CDT, Weight Dosing Start Date: 09/05/23 Status: Ordered venlafaxine 37.5 mg oral capsule, extended release 37.5 mg = 1 cap, Oral, Daily, # 90 cap, 0 Refill(s), [facility] [place], 157.48, cm, 09/28/23 18:18:00 CDT, Height, [...] Oral [35.8-37.3 Deg C] 37.1 Deg C (01/25/24 6:47 PM) Peripheral Pulse Rate [60-100 bpm] 80 bp m (01/25/24 6:47 PM) Respiratory Rate [12-24 br/min] 20 br/mi n (01/25/24 6:47 PM) Blood Pressure [90-120/60-80 mmHg] 182/9 7mmHg *>HHI* (01/25/24 6:47 PM) Mean Arterial Pressure, Cuff [65-140 mmH g] 125 mmHg (01/25/24 6:47 PM) Weight 83 kg (01/25/24 6:47 PM) Weight Dosing 83.000 kg (01/25/24 6:47 PM) Height 157 cm (01/25/24 6:47 PM) Body Mass Index 33.67 kg/m2 (01/25/24 6:47 PM) Social History Social History Type Response Tobacco Current everyday tob acco user Tobacco Use:. Sex Sex Representation Female (finding) Hospital Discharge Instructions Follow Up Care 01/25/2024 18:31:20 With:Follow up with primary care provider Address:Unknown When:3 to 5 days Physician Emergency department Note * Mauricio Limon MD: PERFORM, MODIFY Event Display: ED Note Physician Authored Date: [id number] MISHA JACKSON :1980 Age:43 years Sex:Female Visit Date:01/25/2024 Primary Care Physician: Hermes Ramirez MD Basic Information Time Seen: Mauricio Limon MD / 01/25/2024 18:52 Chief Complaint pt fell at work 1 month ago has had MRI and other tests sees erin Kay took tylenol and Ultram at 4pm has not helped History Of Present Illness: 43 years old female with??history of neck pain chronic pain she had MRI. ??And she is supposed to see orthopedics. She take Tylenol or Ultram. ??Was not helping. Requesting shot of morphine. Denies chest pain or abdominal pain denies shortness of breath.. Review of Systems: Review of system negative Physical Exam Vitals & Measurements T:??37.1?C ??(Oral)?? HR:??80??(Peripheral)?? RR:??20?? BP:??182/97?? SpO2:??98%?? HT:??157??cm?? WT:??83??kg?? BMI:??33.67?? General: [Alert and oriented, well nourished, no [...] affect]. Medical Decision Making: Patient with chronic neck pain. ?? Will give her 4 mg of morphine IM and Benadryl 25 IM ?? Will be discharged home.? to continue home medication and follow-up with orthopedics. Return to the hospital for worsening symptoms ?? Chronic hypertension. ??She take blood pressure medication. ?? Procedure No Qualifying Data Assessment/Plan Chronic neck pain??M54.2 Other chronic pain??G89.29 Orders: diphenhydrAMINE, 25 mg = 0.5 mL, Intramuscular, Injection, Once, First Dose: 01/25/24 19:00:00 SPECIAL AGENT FBI,Stop Date: 01/25/24 19:00:00 SPECIAL AGENT FBI, Physician Stop, Routine morphine, 4 mg = 1 mL, Intramuscular, Injection, Once, First Dose: 01/25/24 19:00:00 SPECIAL AGENT FBI, Stop Date: 01/25/24 19:00:00 SPECIAL AGENT FBI, Physician Stop, Routine Patient Discharge Condition Stable condition Discharge Disposition Will be discharged home Follow Up With When Contact Information Follow up with primary care provider Within 3 to 5 days Additional Instructions: Medication Reconciliation Unchanged amLODIPine [...] Family History Cancer: Mother. Electronically Signed on 01/25/2024 19:39 SPECIAL AGENT FBI Mauricio Limon MD Patient Care team information Care Team Personnel Name: Jessee Jones NP Position: Physician Member Role: Nurse Practitioner Address: [address] [place] [address], [address] Name: Latoya Marquez NP Position: Physician Member Role: Nurse Practitioner Address: [address] [place], [place] [id number]- Name: Leonila Gonzalez VENEER TRIMMER Position: Physician Member Role: Nurse Practitioner Address: [address] [place] [address]- Name: Beth Brandt VENEER TRIMMER Position: Physician Member Role: Nurse Practitioner Address: [address] [place] [address] Name: Hermes Ramirez MD Position: Physician Member Role: Informed Provider Address: [address] [facility], [address] [place] [address]- Name: Pillo Moe VENEER TRIMMER Position: Physician Member Role: Nurse Practitioner Address: [address] [facility], [address] [facility] Care Team Related Persons Name: STACIA JONES Name: ROBYN JAMA Name: NAIF CHOI Name: MADY CHEN Name: MADY CHEN Insurance Providers Guarantor name: MISHA JACKSON Health Plan Information #: 1 Payer: [employer] Member Number: [id number] Policy Number: Health Plan Information #: 2 Payer: [employer] APPROVED Member Number: [id number] Policy Number: Health Plan Information #: 3 Payer: MISC Workers Comp Member Number: Policy Number:
--- OUTSIDE RECORDS SUMMARY | 2024-03-20 11:40 | XMS_ITS | Continuity of Care Document ---
Author Organization [facility] Address [address] [place] [address] Care Team Providers Care Pulmonary Disease Specialist Name Role Phone SophieHermes west Primary Care Physician Encounter [facility] [id number] Date(s): 05/29/20 - 05/29/[address] [address]- [place] Discharge Disposition: Home or Self Care Attending Physician: Nirav Carpio MD Admitting Physician: Nirav Carpio MD Allergies, Adverse Reactions, Alerts Substance Reaction Severity Status erythromycin Medication interaction Activ e aspirin Medication interaction Activ e Toradol Kidney failure as a complication of care Active Assessment and Plan Diagnostic Tests Pending * Tacrolimus (FK506), Blood LC 05/29/20 Future Scheduled Tests Laboratory* COVID-19 Testing Send Out - [place] State 10/25/19 Immunizations Given and Recorded Vaccine Date Status Refusal Reason hepatitis B adult vaccine 11/10/17 Recorded hepatitis B adult vaccine 10/09/17 Recorded hepatitis A adult vaccine 10/09/17 Recorded tetanus/diphth/pertuss (Tdap) adult/adol 05/10/17 Recorded tetanus/diphth/pertuss (Tdap) adult/adol 03/20/17 Recorded tetanus/diphth/pertuss (Tdap) adult/adol 05/25/12 Recorded Medications Lasix 20 mg oral tablet 20 mg = 1 tab, Oral, Daily, # 5 tab, 0 Refill(s), [id number] Start Date: 04/14/20 Stop Date: 04/19/20 Status: [...] nausea/vomiting, # 20 tab, 0 Refill(s), [facility]acy: [id number] Start Date: 04/28/19 Stop Date: 05/03/19 Status: [...] Results Laboratory List Name Date .Morphology (ONOFRE) 05/29/20 Automated Diff 05/29/20 CBC w/ Diff 05/29/20 Comprehensive Metabolic Panel 05/29/20 GGT 05/29/20 Most recent to oldest [Reference Range]: 1 WBC [4.0-11.5 K/mcL] 4.3 K/mcL (05/29/20 8:07 AM) RBC [4.20-5.40 x10^6/mcL] 2.71 x10^6/mcL *LOW* (05/29/20 8:07 AM) Neutro Auto 69.8 % *NA* (05/29/20 8:07 AM) Lymph Auto 13.7 % *NA* (05/29/20 8:07 AM) Mohave Auto 8.1 % *NA* (05/29/20 8:07 AM) Basophil Auto 0.9 % *NA* (05/29/20 8:07 AM) BUN [7-18 mg/dL] 25 mg/dL *HI* (05/29/20 8:07 AM) Glucose Level [70-110 mg/dL] 108 mg/dL (05/29/20 8:07 AM) Potassium Level [3.5-5.1 mmol/L] 3.9 mmo l/L (05/29/20 8:07 AM) Baso Absolute [0.0-0.1 x10^3/mcL] 0.0 x1 0^3/mcL (05/29/20 8:07 AM) MCV [78.0-100.0 fL] 106.3 fL *HI* (05/29/20 8:07 AM) RBC Morph Reviewed (05/29/20 8:07 AM) AST [15-37 unit/L] 35 unit/L (05/29/20 8:07 AM) ALT [12-78 unit/L] 68 unit/L (05/29/20 8:07 AM) MCHC [29.0-37.5 g/dL] 31.6 g/dL (05/29/20 8:07 AM) Sodium Level [136-145 mmol/L] 143 mmol/L (05/29/20 8:07 AM) Lymph Absolute [0.8-5.8 x10^3/mcL] 0.6 x 10^3/mcL *LOW* (05/29/20 8:07 AM) Hct [36.0-48.0 %] 28.8 % *LOW* (05/29/20 8:07 AM) Calcium Level [8.5-10.1 mg/dL] 8.3 mg/dL *LOW* (05/29/20 8:07 AM) Mohave Absolute [0.1-1.5 x10^3/mcL] 0.4 x1 0^3/mcL (05/29/20 8:07 AM) Albumin Level [3.4-5.0 g/dL] 2.4 g/dL *LOW* (05/29/20 8:07 AM) Protein Total [6.4-8.2 g/dL] 6.4 g/dL (05/29/20 8:07 AM) MCH [27.0-34.0 pg] 33.6 pg (05/29/20 8:07 AM) Neutro Absolute [1.5-8.1 x10^3/mcL] 3.0 x10^3/mcL (05/29/20 8:07 AM) Bilirubin Total [0.0-1.0 mg/dL] 1.8 mg/d L *HI* (05/29/20 8:07 AM) Hgb [12.0-16.0 g/dL] 9.1 g/dL *LOW* (05/29/20 8:07 AM) Alk Phos [46-130 unit/L] 453 unit/L *HI* (05/29/20 8:07 AM) MPV [6.0-10.0 fL] 10.4 fL *HI* (05/29/20 8:07 AM) Platelets [150-450 K/mcL] 135 K/mcL *LOW* (05/29/20 8:07 AM) CO2 [21-32 mmol/L] 27 mmol/L (05/29/20 8:07 AM) Eos Absolute [0.0-0.5 x10^3/mcL] 0.3 x10 ^3/mcL (05/29/20 8:07 AM) Aniso 1+ (05/29/20 8:07 AM) GGT [5-55 unit/L] 237 unit/L *HI* (05/29/20 8:07 AM) Macrocyte 1+ (05/29/20 8:07 AM) eGFR Non-AA 27 *NA* (05/29/20 8:07 AM) eGFR AA 32 *NA* (05/29/20 8:07 AM) Chloride Level [97-107 mmol/L] 106 mmol/ L (05/29/20 8:07 AM) RDW-CV [11.5-15.0 %] 20.5 % *HI* (05/29/20 8:07 AM) Imm Gran Absolute [0.0-0.1 x10^3/mcL] 0. 1 x10^3/mcL (05/29/20 8:07 AM) Imm Gran Auto 1.2 % *NA* (05/29/20 8:07 AM) NRBC Auto 0.0 % *NA* (05/29/20 8:07 AM) NRBC Absolute [0.0-0.0 x10^3/mcL] 0.0 x1 0^3/mcL (05/29/20 8:07 AM) Creatinine Level [0.60-1.30 mg/dL] 2.21 mg/dL *HI* (05/29/20 8:07 AM) Anion Gap [5-15 mmol/L] 14 mmol/L (05/29/20 8:07 AM) Eos, Auto 6.3 % *NA* (05/29/20 8:07 AM) Social History Social History Type Response Smoking Status 4 or less cigarettes (less than 1/4 pack)/day in last 30 days entered on: 04/08/20 Sex
--- OUTSIDE RECORDS SUMMARY | 2024-03-20 11:40 | XMS_ITS | Continuity of Care Document ---
Author Organization [facility] Address [address] [place] [address] Care Team Providers Care Motion Study Engineer Name Role Phone Hermes Ramirez Primary Care Physician Encounter ONOFRE MCGRAW [id number] Date(s): 07/09/23 - 07/09/[address] [id number] Encounter Diagnosis Headache, chronic migraine without aura(Discharge Diagnosis) - 07/09/23 Chronic back pain(Discharge Diagnosis) - 07/09/23 Other chronic pain(Discharge Diagnosis) - 07/09/23 Diarrhea(Discharge Diagnosis) - 07/09/23 Discharge Disposition: Home or Self Care Attending [...] from: Title:ED Provider Note Author:Car Roach MD Date:07/09/23 Assessment/Plan 1.??Headache, chronic migraine without aura??G43.709 ??To follow-up with PCP??for management of chronic headache 2.??Chronic back pain??M54.9 ??To follow-up with PCP for management of chronic back pains 3.??Diarrhea??R19.7 ??Given 1 L of IV fluids CBC comprehensive panel stable. ??Chronic??kidney disease stable ? Other chronic pain??G89.29 Orders: morphine, 2 mg = 1 mL, Slow IV Push, Injection, Once, First Dose: 07/09/23 18:00:00 CDT, Stop Date: 07/09/23 18:00:00 CDT, Physician Stop, Routine Discharge Patient, 07/09/23 17:57:00 CDT Patient Discharge Condition Stable Discharge Disposition Discharged to home Patient Education Migraine Headache, Amrl-uq-Npst Migraine Headache, Aqlo-gr-Vwfp Follow Up With When Contact Information Hermes Ramirez MD Within [address] [place] [address], [address] [place] [address]- ?? Additional Instructions: Future Appointments Future Scheduled [...] Daily, # 30 tab, 11 Refill(s), Pharmacy: [facility], 157.48, cm, 01/04/23 15:03:00 CDT, Height/Length [...] 0 Refill(s), 07/16/23 12:27:00 PM CDT, [facility]acy: [id number], 157.48, cm, 07/06/23 12:12:00 CDT, Height, 89.36, [...] BID, # 60 cap, 11 Refill(s), Pharmacy: [place], [place], 157.48, cm, 01/04/23 15:03:00 CDT, Height/Length Dosing, 81.65, kg, 01/04/23 15:03:00 CDT, Weight Dosing Start Date: 01/11/23 Status: Ordered morphine 2 mg = 1 mL, Slow IV Push, Injection, Once, First Dose: 07/09/23 5:00:00 PM CDT, Stop Date: 07/09/23 5:02:58 PM CDT, Physician Stop, Routine Start Date: 07/09/23 Stop Date: 07/09/23 Status: Completed morphine 2 mg = 1 mL, Slow IV Push, Injection, Once, First Dose: 07/09/23 6:00:00 PM CDT, Stop Date: 07/09/23 6:00:39 PM CDT, Physician Stop, Routine Start Date: 07/09/23 Stop Date: 07/09/23 Status: Completed pantoprazole 40 mg oral delayed release tablet 1 tab, Oral, Daily, # 90 tab, 0 Refill(s), [id number], 157.48, cm, 06/07/23 16:07:00 CDT, Height, 89.36, [...] QID, # 360 tab, 0 Refill(s), Pharmacy: [id number], 157.48, cm, 06/07/23 16:07:00 CDT, Height, 89.36, [...] Diagnosis Body Site Status Screening Pap Smear; Obtaini ng, Preparing And Conveyance Of Cervical/Vaginal Smear To Laboratory 1 07/2022 Completed Examining eye 2021 Completed Bladder washout 12/14/20 Completed Kidney transplant 05/13/20 Complet ed Tx - Liver transplantation 05/08/20 Completed Mammogram 2 2020 Completed delivery Complet ed cyst removal from breast Completed Hernia Completed liver transplant Complete d 1normal 2normal Results Laboratory List Name Date CBC w/ Diff 07/09/23 Comprehensive Metabolic Panel (CMP) 07/08 Automated Diff 07/09/23 Most recent to oldest [Reference Range]: 1 WBC [4.0-11.5 K/mcL] 5.3 K/mcL (07/09/23 5:08 PM) RBC [4.20-5.40 x10^6/mcL] 4.31 x10^6/mcL (07/09/23 5:08 PM) Neutro Auto 70.3 % *NA* (07/09/23 5:08 PM) Lymph Auto 19.6 % *NA* (07/09/23 5:08 PM) Meade Auto 6.8 % *NA* (07/09/23 5:08 PM) Basophil Auto 0.4 % *NA* (07/09/23 5:08 PM) BUN [7-18 mg/dL] 21 mg/dL *HI* (07/09/23 5:08 PM) Glucose Level [70-110 mg/dL] 83 mg/dL (07/09/23 5:08 PM) Potassium Level [3.5-5.1 mmol/L] 3.4 mmo l/L *LOW* (07/09/23 5:08 PM) Baso Absolute [0.0-0.1 x10^3/mcL] 0.0 x1 0^3/mcL (07/09/23 5:08 PM) MCV [78.0-100.0 fL] 101.4 fL *HI* (07/09/23 5:08 PM) AST [15-37 unit/L] 24 unit/L (07/09/23 5:08 PM) ALT [12-78 unit/L] 37 unit/L (07/09/23 5:08 PM) MCHC [29.0-37.5 g/dL] 33.4 g/dL (07/09/23 5:08 PM) Sodium Level [136-145 mmol/L] 146 mmol/L *HI* (07/09/23 5:08 PM) Lymph Absolute [0.8-5.8 x10^3/mcL] 1.0 x 10^3/mcL (07/09/23 5:08 PM) Hct [36.0-48.0 %] 43.7 % (07/09/23 5:08 PM) Calcium Level [8.5-10.1 mg/dL] 8.8 mg/dL (07/09/23 5:08 PM) Meade Absolute [0.1-1.5 x10^3/mcL] 0.4 x1 0^3/mcL (07/09/23 5:08 PM) Albumin Level [3.4-5.0 g/dL] 3.3 g/dL *LOW* (07/09/23 5:08 PM) Protein Total [6.4-8.2 g/dL] 7.3 g/dL (07/09/23:08 PM) MCH [27.0-34.0 pg] 33.9 pg (07/09/23:08 PM) Neutro Absolute [1.5-8.1 x10^3/mcL] 3.7 x10^3/mcL (07/09/23 5:08 PM) Bilirubin Total [0.0-1.0 mg/dL] 0.5 mg/d L (07/09/23 5:08 PM) Hgb [12.0-16.0 g/dL] 14.6 g/dL (07/09/23:08 PM) Alk Phos [46-130 unit/L] 326 unit/L *HI* (07/09/23 5:08 PM) MPV [6.0-10.0 fL] 10.9 fL *HI* (07/09/23 5:08 PM) Platelets [150-450 K/mcL] 132 K/mcL *LOW* (07/09/23 5:08 PM) CO2 [21-32 mmol/L] 19 mmol/L *LOW* (07/09/23 5:08 PM) Eos Absolute [0.0-0.5 x10^3/mcL] 0.1 x10 ^3/mcL (07/09/23 5:08 PM) eGFR Non-AA 39 *NA* (07/09/23 5:08 PM) eGFR AA 47 *NA* (07/09/23 5:08 PM) Chloride Level [97-107 mmol/L] 110 mmol/ L *HI* (07/09/23 5:08 PM) RDW-CV [11.5-15.0 %] 12.5 % (07/09/23 5:08 PM) Imm Gran Absolute [0.0-0.1 x10^3/mcL] 0. 0 x10^3/mcL (07/09/23 5:08 PM) Imm Gran Auto 0.6 % *NA* (07/09/23 5:08 PM) NRBC Auto 0.0 % *NA* (07/09/23 5:08 PM) NRBC Absolute [0.0-0.0 x10^3/mcL] 0.0 x1 0^3/mcL (07/09/23 5:08 PM) Slide Review Not Indicated (07/09/23 5:08 PM) Creatinine Level [0.60-1.30 mg/dL] 1.57 mg/dL 1 *HI* (07/09/23 5:08 PM) Anion Gap [5-15 mmol/L] 20 mmol/L *HI* (07/09/23 5:08 PM) Eos, Auto 2.3 % *NA* (07/09/23 5:08 PM) 1Interpretive Data: Association of GFR and [...] 2 3 Temperature Oral [35.8-37.3 Deg C] 36.3 Deg C (07/09/23 5:42 PM) Peripheral Pulse Rate [60-100 bpm] 104 bpm *HI* (07/09/23 5:42 PM) Respiratory Rate [12-24 br/min] 18 br/min (07/09/23 5:59 PM) 18 br/min (07/09/23 5:42 PM) 18 br/min (07/09/23 4:53 PM) Blood Pressure [90-140/60-90 mmHg] 155/89mmHg *HI* (07/09/23 5:42 PM) Mean Arterial Pressure, Cuff [65-140 mmHg] 111 mmHg (07/09/23 5:42 PM) Weight 89.36 kg (07/09/23 5:42 PM) Weight Dosing 89.360 kg (07/09/23 5:42 PM) Height 157.48 cm (07/09/23 5:42 PM) Body Mass Index 36.03 kg/m2 (07/09/23 5:42 PM) Social History Social History Type Response Tobacco Current everyday tob acco user Tobacco Use:. 1 Sex 1Pt states that she smokes half a pack a day. Hospital Discharge Instructions Patient Education 07/09/2023 17:57:59 Migraine Headache, Bqzs-tc-Lvpx Migraine Headache A migraine headache is a [...] these instructions at home: Medicines ??? Take kvdj-vym-disanxs and prescription medicines only as told by your doctor. ??? Ask your doctor if the medicine prescribed to you: ??? Requires you to avoid driving or using heavy machinery. ??? Can cause trouble pooping (constipation). You may need to take these steps to prevent or treat trouble pooping: ??? Drink enough fluid to keep your pee (urine) pale yellow. ??? Take obrx-erk-jfoqfes or prescription medicines. ??? Eat foods that [...] provider. Document Revised: 08/18/2022 Document Reviewed: 04/18/2019 [employer] Patient Education ?? 2022 [employer]. 07/09/2023 17:57:59 Migraine Headache, Wqwa-rz-Ymin Migraine Headache A migraine headache is a [...] these instructions at home: Medicines ??? Take bxyg-hut-hevwngc and prescription medicines only as told by your doctor. ??? Ask your doctor if the medicine prescribed to you: ??? Requires you to avoid driving or using heavy machinery. ??? Can cause trouble pooping (constipation). You may need to take these steps to prevent or treat trouble pooping: ??? Drink enough fluid to keep your pee (urine) pale yellow. ??? Take bpnw-bsv-nsgmodh or prescription medicines. ??? Eat foods that [...] provider. Document Revised: 08/18/2022 Document Reviewed: 04/18/2019 [employer] Patient Education ?? 2022 [employer]. Follow Up Care 07/09/2023 16:20:11 With:Hermes Ramirez MD Address: [address] [place] [address], [address] [place] [address]- When:1 week Physician Emergency department Note * Felicia Roach MD: PERFORM Event Display: ED Note Physician Authored Date: [id number] MISHA JACKSON :1980 Age:42 years Sex:Female Visit Date:07/09/2023 Primary Care Physician: Hermes Ramirez MD Basic Information Time Seen: Felicia Roach MD / 07/09/2023 16:36 Chief Complaint Complains of migraine and back pain since yesterday. Did a lot of walking yesterday and not the pain is unbearable. Has not taken any medication at home today. 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 ??No recent injuries.?? She also think she needs some IVfluids because she has developed several episodes of diarrhea??and want some IV fluids. ??No fever chills no flulike symptoms. ??No vomiting. ??No chest pain or shortness of breath..?? She was seen in the ER 3 days ago for recurrent migraine. Review of Systems: Constitutional:?No??fevers,?No??chills,?No??sweats Eye:?No??recent visual problems ENT:?No??ear pain,?No??nasal congestion,?No??sore throat Respiratory:?No??shortness of breath,?No??cough Cardiovascular:?No??Chest pain,?No??palpitations,?No??syncope Gastrointestinal:?Nonausea,?No??vomiting,?No??diarrhea Genitourinary:?No??hematuria Clemente/Lymph:?No??bruising tendency,?No??swollen lymph glands Endocrine:?No??excessive thirst,??No??excessive hunger Musculoskeletal:??Positive for??back pain,??No??neck pain,??No??joint pain,??No??muscle pain,??No??decreased range of motion Integumentary:?No??rash,?No??pruritus,?No??abrasions Neurologic: Alert & oriented X 4 Psychiatric:?No??anxiety,?No??depression Physical Exam Vitals & Measurements T:??36.3?C ??(Oral)?? HR:??104??(Peripheral)?? RR:??18?? BP:??155/89?? SpO2:??98%?? HT:??157.48??cm?? WT:??89.36??kg?? BMI:??36.03?? Pain Score:??8?? O2 Therapy:??Room air?? General: Alert and oriented, well nourished,?No??acute distress.?? Blood pressure 148/89. ??She is afebrile Eye: PERRL, EOMI,?Normal?conjunctiva HENT: Normocephalic, clear tympanic membranes,?Normal? hearing, moist oral mucosa,?No??scleral icterus,?No??sinus tenderness Neck: Supple, non-tender,?No??carotid bruits,?No??JVD,?No??lymphadenopathy Lungs:??Clear to auscultation?? Respiration:??Non-Labored Heart:?Normal? rate,?Regular??rhythm,?No??murmur,?No??gallop,?No??edema Breast:?No??lumps,?No??bumps,?No??scars,?Normal? nipples. ??No rib tenderness abdomen: Soft, non-tender, non-distended,?Normal? bowel sounds,?No??masses. ??Benign abdominal exam Musculoskeletal:?Normal? range of motion and strength,?No??tenderness,?No??swelling Skin: Skin is warm, dry and pink,?No??rashes,?No??lesions Neurologic: Awake, alert and oriented X4, CN II-XII intact Psychiatric: Cooperative, appropriate mood and affect Medical Decision Making: CBC comprehensive panel??was unremarkable with stable chronic kidney disease Given 1 L of IV fluids in the ED Discharged to home to follow-up with PCP for management of chronic neck and back pain and migraines Procedure No Qualifying Data Assessment/Plan 1.??Headache, chronic migraine without aura??G43.709 ??To follow-up with PCP??for management of chronic headache 2.??Chronic back pain??M54.9 ??To follow-up with PCP for management of chronic back pains 3.??Diarrhea??R19.7 ??Given 1 L of IV fluids CBC comprehensive panel stable. ??Chronic??kidney disease stable ? Other chronic pain??G89.29 Orders: morphine, 2 mg = 1 mL, Slow IV Push, Injection, Once, First Dose: 07/09/23 18:00:00 CDT, Stop Date:07/09/23 18:00:00 CDT, Physician Stop, Routine Discharge Patient, 07/09/23 17:57:00 CDT Patient Discharge Condition Stable Discharge Disposition Discharged to home Patient Education Migraine Headache, Okek-le-Yinc Migraine Headache, Zzmt-bk-Ajlk Follow Up With When Contact Information Hermes Rmairez MD Within [address] [place] [address], [address] [place] [address]- Additional Instructions: Medication Reconciliation Unchanged amLODIPine (amLODIPine 5 mg oral tablet)1 tab Oral (given by mouth) every day. Refills: 11. ?? aspirin (aspirin 81 mg oral delayed release tablet)1 tab Oral (given by mouth) every day. ?? clindamycin (clindamycin 300 mg oral capsule)1 Capsules Oral (given by mouth) every 8 hours. Refills: 0. ?? cycloSPORINE (Gengraf 25 mg oral capsule) [...] from [place]???liver transplant Medication Administration Given Benadryl, 50 mg, Slow IV Push morphine, 2 mg, Slow IV Push NS bolus, 1000 mL, Medication Bolus Phenergan, 25 mg, Intramuscular Allergies NSAIDs Toradol??(Kidney [...] and Differential?? LATEST RESULTS?? HISTORICAL RESULTS?? WBC?? 07/09/23 17:08?? 5.3?? 06/27/23?? 7.5?? RBC?? 07/09/23 17:08?? 4.31?? 06/27/23?? 4.10 ??Low?? Hgb?? 07/09/23 17:08?? 14.6?? 06/27/23?? 14.0?? Hct?? 07/09/23 17:08?? 43.7?? 06/27/23?? 41.7?? MCV?? 07/09/23 17:08?? 101.4 ??High?? 06/27/23?? 101.7 ??High?? MCH?? 07/09/23 17:08?? 33.9?? 06/27/23?? 34.1 ??High?? MCHC?? 07/09/23 17:08?? 33.4?? 06/27/23?? 33.6?? RDW-CV?? 07/09/23 17:08?? 12.5?? 06/27/23?? 12.9?? Platelets?? 07/09/23 17:08?? 132 ??Low?? 06/27/23?? 167?? MPV?? 07/09/23 17:08?? 10.9 ??High?? 06/27/23?? 10.8 ??High?? Neutro Auto?? 07/09/23 17:08?? 70.3?? 06/27/23?? 64.6?? Lymph Auto?? 07/09/23 17:08?? 19.6?? 06/27/23?? 23.5?? Meade Auto?? 07/09/23 17:08?? 6.8?? 06/27/23?? 7.1?? Eos, Auto?? 07/09/23 17:08?? 2.3?? 06/27/23?? 4.0?? Basophil Auto?? 07/09/23 17:08?? 0.4?? 06/27/23?? 0.4?? Imm Gran Auto?? 07/09/23 17:08?? 0.6?? 06/27/23?? 0.4?? NRBC Auto?? 07/09/23 17:08?? 0.0?? 06/27/23?? 0.0?? Neutro Absolute?? 07/09/23 17:08?? 3.7?? 06/27/23?? 4.8?? Lymph Absolute?? 07/09/23 17:08?? 1.0?? 06/27/23?? 1.8?? Meade Absolute?? 07/09/23 17:08?? 0.4?? 06/27/23?? 0.5?? Eos Absolute?? 07/09/23 17:08?? 0.1?? 06/27/23?? 0.3?? Baso Absolute?? 07/09/23 17:08?? 0.0?? 06/27/23?? 0.0?? Imm Gran Absolute?? 07/09/23 17:08?? 0.0?? 06/27/23?? 0.0?? NRBC Absolute?? 07/09/23 17:08?? 0.0?? 06/27/23?? 0.0?? Slide Review?? 07/09/23 17:08?? Not Indicated?? 06/27/23?? Not Indicated? Routine Chemistry?? LATEST RESULTS?? HISTORICAL RESULTS?? Sodium Level?? 07/09/23 17:08?? 146 ??High?? 06/27/23?? 146 ??High?? Potassium Level?? 07/09/23 17:08?? 3.4 ??Low?? 06/27/23?? 3.9?? Chloride Level?? 07/09/23 17:08?? 110 ??High?? 06/27/23?? 112 ??High?? CO2?? 07/09/23 17:08?? 19 ??Low?? 06/27/23?? 20 ??Low?? Alk Phos?? 07/09/23 17:08?? 326 ??High?? 06/27/23?? 377 ??High?? AST?? 07/09/23 17:08?? 24?? 06/27/23?? 31?? ALT?? 07/09/23 17:08?? 37?? 06/27/23?? 85 ??High?? BUN?? 07/09/23 17:08?? 21 ??High?? 06/27/23?? 37 ??High?? Glucose Level?? 07/09/23 17:08?? 83?? 06/27/23?? 96?? Creatinine Level?? 07/09/23 17:08?? 1.57 ??High?? 06/27/23?? 1.62 ??High?? eGFR AA?? 07/09/23 17:08?? 47?? 06/27/23?? 45?? eGFR Non-AA?? 07/09/23 17:08?? 39?? 06/27/23?? 37?? Calcium Level?? 07/09/23 17:08?? 8.8?? 06/27/23?? 8.8?? Protein Total?? 07/09/23 17:08?? 7.3?? 06/27/23?? 6.9?? Albumin Level?? 07/09/23 17:08?? 3.3 ??Low?? 06/27/23?? 2.8 ??Low?? Bilirubin Total?? 07/09/23 17:08?? 0.5?? 06/27/23?? 0.7?? Anion Gap?? 07/09/23 17:08?? 20 ??High?? 06/27/23?? 18 ??High? Attending Attestation Stable Electronically Signed on 07/09/23 05:58 PM Felicia Roach MD Patient Care team information Care Team Personnel Name: Jessee Jones CLINICAL REIMBURSEMENT SPECIALIST Position: Physician Member Role: Nurse Practitioner Address: Address: [address] [place] [address], [address] [place] [address]- Name: Latoya Marquez CLINICAL REIMBURSEMENT SPECIALIST Position: Physician Member Role: Nurse Practitioner Address: Address: [address] [place] [address]- Name: Leonila Gonzalez CLINICAL REIMBURSEMENT SPECIALIST Position: Physician Member Role: Nurse Practitioner Address: Address: [address] [place] [address]- Name: Beth Brandt CLINICAL REIMBURSEMENT SPECIALIST Position: Physician Member Role: Nurse Practitioner Address: Address: [address] Name: Hermes Ramirez MD Position: Physician Member Role: Informed Provider Address: Address: [address] [facility], [address] [place] [address]- Name: Pillo Moe CLINICAL REIMBURSEMENT SPECIALIST Position: Physician Member Role: Nurse Practitioner Address: Address: [address] [facility], [address] [facility] Care Team Related Persons Name: STACIA JONES Address: Home [address] [id number] Name: MADY CHEN Name: MADY CHEN
--- OUTSIDE RECORDS SUMMARY | 2024-03-20 11:40 | XMS_ITS | Continuity of Care Document ---
Author Organization [facility] Address [address] [place] [address] Care Team Providers Care Pen And Pencil Repairer Name Role Phone Hermes Ramirez Primary Care Physician Encounter [facility] [id number] Date(s): 02/07/23 - 02/07/[address] [address]- [place] Encounter Diagnosis Migraine headache(Discharge Diagnosis) - 02/07/23 Discharge Disposition: Home or Self Care Attending [...] Complete 2+ Views Right 07/04/22 Functional Status 02/07/23 Family Member Travel History No recent t [...] Daily, # 30 tab, 11 Refill(s), Pharmacy: [place], [place], 157.48, cm, 01/04/23 15:03:00 CDT, Height/Length [...] 40 cap, 0 Refill(s), 02/10/23 3:40:00 PM DOWN FILLER, Pharmacy: [place], [place], 157.48, cm, 01/31/23 14:25:00 DOWN FILLER, Height, 81.65, kg, 01/31/23 14:25:00 DOWN FILLER, Weight Dosing Start Date: 01/31/23 Stop Date: [...] BID, # 60 cap, 11 Refill(s), Pharmacy: [place], 157.48, cm, 01/04/23 15:03:00 CDT, Height/Length Dosing, 81.65, kg, 01/04/23 15:03:00 CDT, Weight Dosing Start Date: 01/11/23 Status: Ordered morphine 4 mg = 1 mL, IM, Injection, Once, First Dose: 02/07/23 5:00:00 PM DOWN FILLER, Stop Date: 02/07/23 5:14:37 PM DOWN FILLER, Physician Stop, Routine Start Date: 02/07/23 Stop Date: 02/07/23 Status: Completed mycophenolate mofetil 250 mg oral capsule 0 [...] to oldest [Reference Range]: 1 2 3 Peripheral Pulse Rate [60-100 bpm] 85 bpm (02/07/23 5:35 PM) 88 bpm (02/07/23 4:46 PM) Respiratory Rate [12-24 br/min] 16 br/min (02/07/23 5:35 PM) 16 br/min (02/07/23 5:14 PM) 16 br/min (02/07/23 4:46 PM) Blood Pressure [90-140/60-90 mmHg] 162/108mmHg *HI* (02/07/23 5:35 PM) 163/108mmHg *HI* (02/07/23 4:46 PM) Mean Arterial Pressure, Cuff [70-110 mmHg] 126 mmHg *>HHI* (02/07/23 4:46 PM) Weight Dosing 82.00 kg (02/07/23 5:00 PM) Weight Estimated 82.00 kg (02/07/23 4:46 PM) Height 158.000 cm (02/07/23 5:00 PM) Height/Length Estimated 158.000 cm (02/07/23 4:46 PM) Social History Social History Type Response Tobacco Current everyday tob acco user Tobacco Use:. Sex Hospital Discharge Instructions Patient Education 02/07/2023 17:03:00 Migraine Headache, Cftp-ib-Aoen Migraine Headache A migraine headache is a [...] these instructions at home: Medicines ??? Take ifbu-jnl-uhtgpkx and prescription medicines only as told by your doctor. ??? Ask your doctor if the medicine prescribed to you: ??? Requires you to avoid driving or using heavy machinery. ??? Can cause trouble pooping (constipation). You may need to take these steps to prevent or treat trouble pooping: ??? Drink enough fluid to keep your pee (urine) pale yellow. ??? Take hvct-kvk-lufdzwt or prescription medicines. ??? Eat foods that [...] provider. Document Revised: 06/28/2019 Document Reviewed: 04/18/2019 [employer] Patient Education ?? 2022 [employer] Chip. Follow Up Care 02/07/2023 16:46:47 With:Hermes Ramirez MD Address: [address] [place] [address] [place], [place] [id number]- When:3 to 5 days Physician Emergency department Note * Maryam Cortés MD: PERFORM Event Display: ED Note Physician Authored Date: [id number] MISHA JACKSON :1980 Age:42 years Sex:Female Visit Date:02/07/2023 Primary Care Physician: Hermes Ramirez MD Basic Information Time Seen: Maryam Cortés MD / 02/07/2023 16:56 Chief Complaint Pt to ER w c/o a headache behind her R eye since last night. Pt tried Tyl PH w/o relief. History Of Present Illness: Patient??returns to??ER today for complaints of having RT sided headache since yesterday. Headache is sharp, continuous, and severe, rated 8/10. She feels nauseated, but had no vomiting. Has photophobia and phonophobia. She has a PMH of migraine headaches. She has a h/o liver and kidney transplant. Review of Systems: Constitutional:?No??fevers,?No??chills,?No??sweats Eye:?No??recent visual problems ENT:?No??ear pain,?No??nasal congestion,?No??sore throat Respiratory:?No??shortness of breath,?No??cough Cardiovascular:?No??Chest pain,?No??palpitations,?No??syncope Gastrointestinal:?Positive fornausea,?No??vomiting,?No??diarrhea Genitourinary:?No??hematuria Clemente/Lymph:?No??bruising tendency,?No??swollen lymph glands Endocrine:?No??excessive thirst,??No??excessive hunger Musculoskeletal:??No??back pain,??No??neck pain,??No??joint pain,??No??muscle pain,??No??decreased range of motion Integumentary:?No??rash,?No??pruritus,?No??abrasions Neurologic: Alert & oriented X 4 Psychiatric:?No??anxiety,?No??depression Physical Exam Vitals & Measurements HR:??88??(Peripheral)?? RR:??16?? BP:??163/108?? SpO2:??100%?? HT:??158.000??cm?? WT:??82.00??kg??(Estimated)?? Pain Score:??8?? O2 Therapy:??Room air?? General: Alert [...] Cooperative, appropriate mood and affect Medical Decision Makin - Patient feels much better. To be discharged home. Procedure No Qualifying Data Assessment/Plan 1.??Migraine headache??G43.709 Orders: Discharge Patient, 02/07/23 17:27:00 DOWN FILLER Patient Discharge Condition Improved. Discharge Disposition Home. Patient Education Migraine Headache, Vzds-ds-Djis Follow Up With When Contact Information Hermes Ramirez MD Within 3 to [address] [place] [address], [address] [place] [address]- Additional Instructions: Medication Reconciliation Unchanged amLODIPine (amLODIPine 5 mg oral tablet)1 tab Oral (given by mouth) every day. Refills: 11. ?? aspirin (aspirin 81 mg oral delayed release tablet)1 tab Oral (given by mouth) every day. ?? clindamycin (clindamycin 300 mg oral capsule)1 Capsules Oral (given by mouth) every 6 hours for 10 Days. Refills: 0. ?? cycloSPORINE (Gengraf 25 mg [...] Liver transplantation (05/08/2020)???Mammogram (2020)??? delivery???cyst removal from [facility]???Hernia???liver transplant Medication Administration Given Benadryl, 25 mg, IM morphine, 4 mg, IM Phenergan, [...] Family History Cancer: Mother. Electronically Signed on 02/07/23 05:28 PM Maryam Cortés MD Patient Care team information Care Team Personnel Name: Jessee Jones ZIG ZAG SPRING MACHINE OPERATOR Position: Physician Member Role: Nurse Practitioner Address: Address: [address] [facility], [address] [place] [address]- Name: Latoya Marquez ZIG ZAG SPRING MACHINE OPERATOR Position: Physician Member Role: Nurse Practitioner Address: Address: [address] [place], [place] [id number]- [place] Name: Leonila Gonzalez ZIG ZAG SPRING MACHINE OPERATOR Position: Physician Member Role: Nurse Practitioner Address: Address: [address] [place] [address]- Name: Beth Brandt ZIG ZAG SPRING MACHINE OPERATOR Position: Physician Member Role: Nurse Practitioner Address: Address: [address] [place] [address] [place] [address] Name: Hermes Ramirez MD Position: Physician Member Role: Primary Care Physician Address: Address: [address] [facility], [address] [place] [address]- Name: Anamika Gore MD Position: Physician - Women's Health Member Role: Informed Provider Name: Pillo Moe ZIG ZAG SPRING MACHINE OPERATOR Position: Physician Member Role: Nurse Practitioner Address: Address: [address] [facility], [address] [facility] Name: Maryam Cortés MD Position: Physician Member Role: Admitting Physician Address: Address: [address] [place] [address] [place] [address]- [place] Name: Paris Morrissey RN Position: Nurse Member Role: ED Nurse Care Team Related Persons Name: STACIA JONES Address: Home [address] [place], [place] [id number] Name: ROBYN JAMA
--- OUTSIDE RECORDS SUMMARY | 2024-03-20 11:40 | XMS_ITS | Continuity of Care Document ---
Author Organization [facility] Address [address] [place] [address]- Care Team Providers Care Airplane Cover Maker Name Role Phone Hermes Ramirez Primary Care Physician Encounter [facility] [id number] Date(s): 11/01/22 - 11/01/22 [facility] [address] [place] [address]- Encounter Diagnosis Back pain(Discharge Diagnosis) - 11/01/22 Discharge Disposition: Home Allergies, Adverse Reactions, Alerts [...] Daily, # 30 tab, 0 Refill(s), Pharmacy: [place], [place], 157, cm, 09/10/22 15:23:00 CDT, Height/Length [...] BID, # 60 cap, 0 Refill(s), Pharmacy: [place], [place], 157, cm, 09/10/22 15:23:00 CDT, Height/Length [...] information Care Team Personnel Name: Jessee Jones MACHINIST WOOD Position: Physician Member Role: Nurse Practitioner Address: Address: [address] [place] [address], [address] [place] [address]- Name: Latoya Marquez MACHINIST WOOD Position: Physician Member Role: Nurse Practitioner Address: Address: [address] [place] [address]- Name: Leonila Gonzalez MACHINIST WOOD Position: Physician Member Role: Nurse Practitioner Address: Address: [address] [place] [address]- Name: Beth Brandt MACHINIST WOOD Position: Physician Member Role: Nurse Practitioner Address: Address: [address] [place] [address] Name: Hermes Ramirez MD Position: Physician Member Role: Informed Provider Address: Address: [address] [facility], [address] [place] [address]- Name: Pillo Moe MACHINIST WOOD Position: Physician Member Role: Nurse Practitioner Address: Address: [address] [place] [address], [address] [facility] Care Team Related Persons Name: STACIA JONES Address: Home [address] [place] [phone] Name: ROBYN JAMA Address: Home
--- OUTSIDE RECORDS SUMMARY | 2024-03-20 11:40 | XMS_ITS | Continuity of Care Document ---
Author Organization [facility] Address [address] [place] [address] Care Team Providers Care Flight Engineer Name Role Phone Hermes Ramirez Primary Care Physician [phone] Encounter [facility] [id number] Date(s): 05/15/22 - 05/15/22 [place] [address] [place] [address] [place] Discharge Disposition: Home or Self Care Attending Physician: Allen Manzano Admitting Physician: Allen Manzano Allergies, Adverse Reactions, Alerts Substance Reaction Severity Status codeine Unknown Itching Severe Active gentamicin Moderate Active erythromycin Medication interaction Activ e azithromycin Unknown Severe Active aspirin Medication interaction Severe Activ e Toradol Kidney failure as a complication of care Severe Active NSAIDs Severe Active Assessment and Plan Diagnostic Tests Pending * Tacrolimus (FK506), Blood LC/MS LC 05/15/22 * Sirolimus (Rapamune), Blood LC 05/15/22 Future Scheduled Tests Laboratory* Giardia lamblia [...] wheezing, # 6.7 g, 0 Refill(s), Pharmacy: [place], [place], 73, cm, 09/13/21 23:53:00 CDT, Height/Length [...] needed, # 12 cap, 0 Refill(s), Pharmacy: [place], [place], 157, cm, 11/04/21 20:02:00 CDT, Height/Length Dosing, 73, kg, 11/04/21 20:02:00 CDT, Weight Dosing Start Date: 11/04/21 Status: Ordered Cipro 250 mg oral tablet 250 mg = 1 tab, Oral, every 12 hr, X 7 days, # 14 tab, 0 Refill(s), 05/22/22 1:45:00 INSPECTOR PROCESS, Pharmacy:[place], [place], 157, cm, 05/15/22 1:01:00 INSPECTOR PROCESS, Height/Length Dosing, 74, kg, 05/15/22 1:01:00 INSPECTOR PROCESS, Weight Dosing Start Date: 05/15/22 Stop Date: [...] 18:45:00CST, Height/Length Dosing, 72.57, kg, 02/07/22 18:45:00 INSPECTOR PROCESS, Weight Dosing Start Date: 02/13/22 Status: Ordered morphine 2 mg/mL preservative-free injectable solution 2 mg = 1 mL, IM, Once, 0 Refill(s) Start Date: 05/05/22 Status: Ordered oseltamivir 30 mg oral capsule 30 mg = 1 cap, Oral, BID, # 10 cap, 0 Refill(s), Pharmacy: [place], [place], 157.48, cm, 03/16/22 18:01:00 INSPECTOR PROCESS, Height/Length Dosing, 77.11, kg, 03/16/22 18:01:00 INSPECTOR PROCESS, Weight Dosing Start Date: 03/16/22 Status: Ordered [...] nausea/vomiting, # 20 tab, 0 Refill(s), Pharmacy: [place], [place], [address], cm, 09/29/21 23:03:00 CDT, Height/Length [...] Laboratory List Name Date CBC w/ Diff 05/15/22 Cholesterol Total 05/15/22 Comprehensive Metabolic Panel 05/15/22 GGT 05/15/22 Lactate Dehydrogenase 05/15/22 Magnesium Level 05/15/22 Phosphorus Level 05/15/22 Uric Acid 05/15/22 Automated Diff 05/15/22 Most recent to oldest [Reference Range]: 1 WBC [4.0-11.5 K/mcL] 5.9 K/mcL (05/15/22 2:43 AM) RBC [4.20-5.40 x10^6/mcL] 3.84 x10^6/mcL *LOW* (05/15/22 2:43 AM) Neutro Auto 66.8 % *NA* (05/15/22 2:43 AM) Lymph Auto 22.4 % *NA* (05/15/22 2:43 AM) Keith Auto 7.3 % *NA* (05/15/22 2:43 AM) Basophil Auto 0.0 % *NA* (05/15/22 2:43 AM) BUN [7-18 mg/dL] 16 mg/dL (05/15/22 2:43 AM) Cholesterol Total [100-199 mg/dL] 178 mg /dL (05/15/22 2:43 AM) Glucose Level [70-110 mg/dL] 99 mg/dL (05/15/22 2:43 AM) Potassium Level [3.5-5.1 mmol/L] 3.8 mmo l/L (05/15/22 2:43 AM) Baso Absolute [0.0-0.1 x10^3/mcL] 0.0 x1 0^3/mcL (05/15/22 2:43 AM) MCV [78.0-100.0 fL] 93.2 fL (05/15/22 2:43 AM) AST [15-37 unit/L] 17 unit/L (05/15/22 2:43 AM) ALT [12-78 unit/L] 29 unit/L (05/15/22 2:43 AM) MCHC [29.0-37.5 g/dL] 33.8 g/dL (05/15/22 2:43 AM) Sodium Level [136-145 mmol/L] 142 mmol/L (05/15/22 2:43 AM) Lymph Absolute [0.8-5.8 x10^3/mcL] 1.3 x 10^3/mcL (05/15/22 2:43 AM) Hct [36.0-48.0 %] 35.8 % *LOW* (05/15/22 2:43 AM) Calcium Level [8.5-10.1 mg/dL] 8.5 mg/dL (05/15/22 2:43 AM) Keith Absolute [0.1-1.5 x10^3/mcL] 0.4 x1 0^3/mcL (05/15/22 2:43 AM) Phosphorus Level [2.6-4.7 mg/dL] 3.7 mg/ dL (05/15/22 2:43 AM) Albumin Level [3.4-5.0 g/dL] 3.1 g/dL *LOW* (05/15/22 2:43 AM) Protein Total [6.4-8.2 g/dL] 6.7 g/dL (05/15/22 2:43 AM) MCH [27.0-34.0 pg] 31.5 pg (05/15/22 2:43 AM) Magnesium Level [1.8-2.4 mg/dL] 1.5 mg/d L *LOW* (05/15/22 2:43 AM) Neutro Absolute [1.5-8.1 x10^3/mcL] 4.0 x10^3/mcL (05/15/22 2:43 AM) Bilirubin Total [0.0-1.0 mg/dL] 0.3 mg/d L (05/15/22 2:43 AM) Hgb [12.0-16.0 g/dL] 12.1 g/dL (05/15/22 2:43 AM) Uric Acid [2.6-7.2 mg/dL] 4.8 mg/dL (05/15/22 2:43 AM) Alk Phos [46-130 unit/L] 276 unit/L *HI* (05/15/22 2:43 AM) LDH [100-190 unit/L] 136 unit/L (05/15/22 2:43 AM) MPV [6.0-10.0 fL] 10.2 fL *HI* (05/15/22 2:43 AM) Platelets [150-450 K/mcL] 111 K/mcL *LOW* (05/15/22 2:43 AM) CO2 [21-32 mmol/L] 24 mmol/L (05/15/22 2:43 AM) Eos Absolute [0.0-0.5 x10^3/mcL] 0.2 x10 ^3/mcL (05/15/22 2:43 AM) GGT [5-55 unit/L] 213 unit/L *HI* (05/15/22 2:43 AM) eGFR Non-AA 56 *NA* (05/15/22 2:43 AM) eGFR AA 68 *NA* (05/15/22 2:43 AM) Chloride Level [97-107 mmol/L] 108 mmol/ L *HI* (05/15/22 2:43 AM) RDW-CV [11.5-15.0 %] 11.6 % (05/15/22 2:43 AM) Imm Gran Absolute [0.0-0.1 x10^3/mcL] 0. 0 x10^3/mcL (05/15/22 2:43 AM) Imm Gran Auto 0.3 % *NA* (05/15/22 2:43 AM) NRBC Auto 0.0 % *NA* (05/15/22 2:43 AM) NRBC Absolute [0.0-0.0 x10^3/mcL] 0.0 x1 0^3/mcL (05/15/22 2:43 AM) Creatinine Level [0.60-1.30 mg/dL] 1.14 mg/dL (05/15/22 2:43 AM) Anion Gap [5-15 mmol/L] 14 mmol/L (05/15/22 2:43 AM) Eos, Auto 3.2 % *NA* (05/15/22 2:43 AM) Social History Social History Type Response Tobacco Current everyday tob acco user Tobacco Use:. Sex Patient Care team information Care Team Personnel Name: Jessee Jones CONSTRUCTION OR LEAK GANG LABORER Position: Physician Member Role: Nurse Practitioner Address: Address: [address] [place] [address], [address] [place] [address]- Name: Latoya Marquez CONSTRUCTION OR LEAK GANG LABORER Position: Physician Member Role: Nurse Practitioner Address: Address: [address] [place] [address]- Name: Leonila Gonzalez CONSTRUCTION OR LEAK GANG LABORER Position: Physician Member Role: Nurse Practitioner Address: Address: [address] [place] [address]- Name: Beth Brandt CONSTRUCTION OR LEAK GANG LABORER Position: Physician Member Role: Nurse Practitioner Address: Address: [address] [place] [address] Name: Hermes Ramirez MD Position: Physician Member Role: Informed Provider Address: Address: [address] [place] [address], [facility] [address] [place] [address]- Name: Pillo Moe CONSTRUCTION OR LEAK GANG LABORER Position: Physician Member Role: Nurse Practitioner Address: Address: [address] [facility], [address] [facility] Care Team Related Persons Name: STACIA JONES Address: Home [address] [place], [place] [id number] Name: ROBYN JAMA Address: Home
--- OUTSIDE RECORDS SUMMARY | 2024-03-20 11:40 | XMS_ITS | Continuity of Care Document ---
Author Organization [facility] Address [address] [place] [address] Care Team Providers Care Dough Catcher Name Role Phone Hermes Ramirez Primary Care Physician Encounter [facility] [id number] Date(s): 01/17/24 - 01/17/24 [facility] [address] [place] [address] [place] Discharge Disposition: Home or [...] Daily, # 30 tab, 11 Refill(s), Pharmacy: [place], [place], 157.48, cm, 01/04/23 15:03:00 CDT, Height/Length Dosing, 81.65, kg, 01/04/23 15:03:00 CDT, Weight Dosing Start Date: 01/11/23 Status: Ordered amoxicillin 875 mg oral tablet 875 mg = 1 tab, Oral, BID, # 14 tab, 0 Refill(s), Pharmacy: [id number] [place], 157.48, cm, 01/01/24 14:49:00 CDT, Height, [...] BID, # 120 cap, 2 Refill(s), Pharmacy: [id number] [place], 157.48, cm, 07/23/23 17:59:00 CDT, Height, [...] Daily, # 14 patches, 1 Refill(s), Pharmacy: [id number], 157.48, cm, 01/01/24 14:49:00 CDT, Height, 87.09, kg, 01/01/24 14:53:00 CDT, Weight Dosing Start Date: 01/01/24 Status: Ordered Nicotrol Inhaler 10 mg inhalation device See Instructions, 6-16 cartriges/day, # 1 EA, 2 Refill(s), Pharmacy: [id number], 157.48, cm, 08/29/23 14:22:00 CDT, Height, 88, kg, 08/29/23 14:27:00 CDT, Weight Dosing Start Date: 08/29/23 Status: Ordered pantoprazole 40 mg oral delayed release tablet 1 tab, Oral, Daily, # 90 tab, 0 Refill(s), Pharmacy: [id number], 157.48, cm, 06/07/23 16:07:00 CDT, Height, 89.36, [...] QID, # 360 tab, 0 Refill(s), [id number], 157.48, cm, 08/29/23 14:22:00 CDT, Height, 88, kg, 08/29/23 14:27:00 CDT, Weight Dosing Start Date: 09/05/23 Status: Ordered venlafaxine 37.5 mg oral capsule, extended release 37.5 mg = 1 cap, Oral, Daily, # 90 cap, 0 Refill(s), Pharmacy: [id number] [place], 157.48, cm, 09/28/23 18:18:00 CDT, Height, [...] Exam Date Time Procedure Performing Provider Status 01/17/24 3:29 PM MRI Knee w/o Contras t Right TomyLuciana RT(R)(ARRT); Auth (Verified) Notes: (MRI Knee w/o Contrast Right) Reason For Exam: s/p injury 10 days ago MRI Knee w/o Contrast Right EXAM DESCRIPTION: MRI Knee w/o Contrast Right REASON FOR STUDY: Right knee pain, s/p injury 10 days ago TECHNIQUE: Multiplanar, multisequence MRI of the right knee was performed without contrast. COMPARISON: None available FINDINGS: In the medial compartment, the meniscus is intact. There is no focal chondrosis or subchondral edema. In the lateral compartment, the meniscus is intact. There is no focal chondrosis or subchondral edema. In the patellofemoral compartment, there is mild chondrosis. The cruciate and collateral ligaments are intact. The extensor mechanism is normal. The popliteus tendon is intact. Small effusion is present. There are no loose bodies. Anterior knee subcutaneous edema is present. Tiny Holland's cyst is present. IMPRESSION: Intact right knee menisci, cruciate and collateral ligaments on this non arthrographic evaluation. Mild patellofemoral compartment right knee chondrosis. Small right knee effusion. Anterior right knee subcutaneous edema. THIS IS AN ELECTRONICALLY VERIFIED FINAL REPORT 01/18/2024 6:17 AM - Electronically signed by Radu Mares M.D. MF: [id number] Report ID: [id number] Reading Location: [id number] Final Dictated by: Radu Mares Dictated DT/TM: 01/18/2024 6:20 am Signed by: Radu Mares MD Signed (Electronic Signature): 01/18/2024 6:20 am * Exam Date Time Procedure Performing Provider Status 01/17/24 3:29 PM MRI Shoulder w/o Con trast Right Luciana Huitron RT(R)(ARRT); Auth (Verified) Notes: (MRI Shoulder w/o Contrast Right) Reason For Exam: right shoulder pain s/p fall MRI Shoulder w/o Contrast Right EXAM DESCRIPTION: MRI Shoulder w/o Contrast Right REASON FOR STUDY: shoulder pain, right shoulder pain s/p fall TECHNIQUE: Multiplanar, multisequence MRI of the right shoulder was performed without contrast. COMPARISON: 01/09/2024 FINDINGS: There is a type 2 acromion. The coracoacromial ligament is thin. There is mild acromioclavicular joint osteoarthritis with distal clavicular predominant marrow edema and a small erosion. There is mild subacromial subdeltoid bursitis. The rotator cuff muscle bulk is normal. The subscapularis is intact. The biceps tendon is located within the bicipital groove. The supraspinatus and infraspinatus cuff tendons are intact without evidence of a discrete tear. On this non arthrographic evaluation, the bicipital anchor and superior glenoid labrum are intact. The labrum below the equator is normal. The glenohumeral cartilage is normal. There is mild edema involving the humeral attachment of the inferior glenohumeral joint capsule. A physiologic amount of fluid is present within the joint space. There are no loose bodies. IMPRESSION: Intact right rotator cuff and glenoid labrum on this non arthrographic evaluation. Mild right acromioclavicular joint osteoarthritis with distal clavicular predominant marrow edema and a small erosion which may represent a superimposed component of distal clavicular osteolysis. Mild right subacromial subdeltoid bursitis. Mild edema involving the humeral attachment of the inferior glenohumeral joint capsule. This can be associated with adhesive capsulitis versus a low-grade insertional sprain. THIS IS AN ELECTRONICALLY VERIFIED FINAL REPORT 01/18/2024 5:58 AM - Electronically signed by Radu Mares M.D. MF: [id number] Report ID: [id number] Reading Location: [place] [address] Final Dictated by: Radu Mares Dictated DT/TM: 01/18/2024 6:00 am Signed by: Radu Mares MD Signed (Electronic Signature): 01/18/2024 6:00 am Social History Social History Type Response Tobacco Current everyday tob acco user Tobacco Use:. Sex Sex Representation Female (finding) Patient Care team information Care Team Personnel Name: Jessee Jones ASSEMBLING MACHINE OPERATOR Position: Physician Member Role: Nurse Practitioner Address: [address] [facility], [address] [place], [place] [address]- Name: Latoya Marquez ASSEMBLING MACHINE OPERATOR Position: Physician Member Role: Nurse Practitioner Address: [address] [place] [facility] [address]- Name: Leonila Gonzalez ASSEMBLING MACHINE OPERATOR Position: Physician Member Role: Nurse Practitioner Address: [address] [place] [address]- Name: Beth Brandt ASSEMBLING MACHINE OPERATOR Position: Physician Member Role: Nurse Practitioner Address: [address] [facility], [place] [id number] [place] Name: Hermes Ramirez MD Position: Physician Member Role: Informed Provider Address: [address] [facility], [address] [place], [facility]- Name: Pillo Moe ASSEMBLING MACHINE OPERATOR Position: Physician Member Role: Nurse Practitioner Address: [address] [facility], [address] [place], [facility] Care Team Related Persons Name: STACIA JONES Name: NAIF CHOI Name: MADY CHEN Name: MADY CHEN Insurance Providers Guarantor name: MISHA JACKSON Health Plan Information #: 1 Payer: MISC Workers Comp Member Number: [id number] Policy Number: Health Plan Information #: 2 Payer: [facility] MEDICA[facility] MGD CARE Member Number: [id number] Policy Number: Health Plan Information #: 3 Payer: FIN[employer]CIAL [employer]ISTANCE APPROVED Member Number: [id number] Policy Number:
--- OUTSIDE RECORDS SUMMARY | 2024-03-20 11:40 | XMS_ITS | Continuity of Care Document ---
Author Organization [facility] Address [address] [place] [address] Care Team Providers Care Material Man Name Role Phone Hermes Ramirez Primary Care Physician [phone] Encounter ONOFRE MCGRAW [id number] Date(s): 11/18/21 - 11/19/[address] [address] Encounter Diagnosis Headache, migraine, intractable(Discharge Diagnosis) - 11/19/21 Otalgia of right ear(Discharge Diagnosis) - 11/19/21 Ear drainage right(Discharge Diagnosis) - 11/19/21 Discharge Disposition: Home or Self Care Attending [...] Plan Future Appointments Diagnostic Tests Pending * Ear Culture 11/19/21 Immunizations Given and Recorded Vaccine Date Status [...] wheezing, # 6.7 g, 0 Refill(s), Pharmacy: [place], [place], 73, cm, 09/13/21 23:53:00 CDT, Height/Length [...] needed, # 12 cap, 0 Refill(s), Pharmacy: [place], [place], 157, cm, 11/04/21 20:02:00 CDT, Height/Length Dosing, 73, kg, 11/04/21 20:02:00 CDT, Weight Dosing Start Date: 11/04/21 Status: Ordered cefaclor 500 mg oral tablet, extended release 500 mg = 1 tab, Oral, BID, # 20 tab, 0 Refill(s), Pharmacy: [place], [place], [address], cm, 11/18/21 23:46:00 CDT, Height/Length [...] BID, # 180 tab, 3 Refill(s), Pharmacy: [place], [place], [address], cm, 10/22/20 21:26:00 CDT, Height/Length Dosing, 74, kg, 10/22/20 21:26:00 CDT, Weight Dosing Start Date: 12/18/20 Status: Ordered ondansetron 4 mg oral tablet, disintegrating 4 mg = 1 tab, Oral, every 6 hr, PRN nausea/vomiting, # 12 tab, 0 Refill(s), Pharmacy: [place], [place], [address], cm, 11/04/21 20:02:00 CDT, Height/Length [...] nausea/vomiting, # 20 tab, 0 Refill(s), Pharmacy: [place], [place], [address], cm, 09/29/21 23:03:00 CDT, Height/Length [...] Oral [35.8-37.3 Deg C] 36.7 Deg C (11/18/21 11:29 PM) Peripheral Pulse Rate [60-100 bpm] 78 bp m (11/18/21 11:29 PM) Respiratory Rate [12-24 br/min] 18 br/mi n (11/18/21 11:29 PM) Blood Pressure [90-140/60-90 mmHg] 142/9 3mmHg *HI* (11/18/21 11:29 PM) Weight 73.00 kg (11/18/21 11:29 PM) Weight Dosing 73.00 kg (11/18/21 11:46 PM) Height 157.000 cm (11/18/21 11:29 PM) Height/Length Dosing 157.000 cm (11/18/21 11:46 PM) Social History Social History Type Response Smoking Status 5-9 cigarettes (betw een 1/4 to 1/2 pack)/day in last 30 days entered on: 05/12/21 Sex Hospital Discharge Instructions Patient Education 11/19/2021 00:19:22 Migraine Headache, Mmwy-ti-Lugc Migraine Headache A migraine headache is a [...] these instructions at home: Medicines ??? Take hkhg-wwf-wlaudyr and prescription medicines only as told by your doctor. ??? Ask your doctor if the medicine prescribed to you: ??? Requires you to avoid driving or using heavy machinery. ??? Can cause trouble pooping (constipation). You may need to take these steps to prevent or treat trouble pooping: ??? Drink enough fluid to keep your pee (urine) pale yellow. ??? Take jimd-ecb-csmtoqd or prescription medicines. ??? Eat foods that [...] provider. Document Revised: 06/28/2019 Document Reviewed: 04/18/2019 Room [employer] Studio Patient Education ?? 2020 [employer]. 11/19/2021 00:19:15 Ear Drainage Ear Drainage Ear drainage is the discharge of ear wax, pus, blood, or other fluids from the ear. Follow these instructions at home: Pay attention to changes in your ear drainage. Report them to your health care provider. Follow these instructions to relieve your symptoms. Protecting your ear ??? Do not use cotton-tipped swabs in your ear. Do not put any other objects into your ear. ??? Do not swim until your health care provider has approved. ??? Before you shower, cover a cotton ball with petroleum jelly and place it in your ear. This helps to keep water out. ??? Wash your hands before and after you touch your ears. General instructions ??? Take zmwm-rre-nhffwvb and prescription medicines only as told by your health care provider. ??? Avoid any exposure to smoke. ??? Keep all follow-up visits as told by your health care provider. This is important. Contact a health care provider if: ??? You have increased drainage. ??? You have ear pain. ??? You have a fever. ??? Your drainage is not getting better with treatment. ??? Your ear drainage is bloody, white, clear, or yellow. ??? Your ear is red or swollen. Get help right away if you: ??? Have severe ear pain. ??? Have a severe headache. ??? Vomit. ??? Feel dizzy. ??? Have a seizure. ??? Have new hearing loss. Summary ??? Ear drainage is the discharge of ear wax, pus, blood, or other fluids from the ear. ??? Pay attention to any changes in your symptoms. Tell your health care provider about them. Follow instructions from your health care provider. ??? Contact your health care provider if you have more drainage, bloody drainage, ear pain, fever, or swelling. ??? Get help right away if you have severe pain, severe headache, vomiting, dizziness, seizure, or hearing loss. This information is not intended to replace advice given to you by your health care provider. Make sure you discuss any questions you have with your health care provider. Document Revised: 09/06/2018 Document Reviewed: 09/06/2018 Room [employer] Studio Patient Education ?? 2020 [employer]. Follow Up Care 11/18/2021 23:28:59 With:Hermes Ramirez MD Address: [address] [place] [id number] When:1 week Comments:Apparently Augmentin has not been helping,??will stop Augmentin??and start Ceclor 500 mg twice a day for 10 days.?? Rocephin 1 g IM was given in the ED tonight.?? Continue other home medications.?? Also instructed to follow-up with ENT With:Hermes Ramirez MD Address: [address] [place] [address]- When:1 month With:Hermes Ramirez MD Address: [address] [place] [id number] When:1 month Patient Care team information Personnel Name: Hermes Ramirez MD Address: Address: [address] [place] [address]
--- OUTSIDE RECORDS SUMMARY | 2024-03-20 11:40 | XMS_ITS | Continuity of Care Document ---
Author Organization [facility] Address [address] [place] [address] Care Team Providers Care Spinning Lathe Operator Name Role Phone Hermes Ramirez Primary Care Physician [phone] Encounter ONOFREEver MCGRAW [id number] Date(s): 02/14/22 - 02/14/[address] [address] Encounter Diagnosis Migraine headache(Discharge Diagnosis) - 02/14/22 Migraine, unspecified, not intractable, without status migrainosus(Final) - Discharge Disposition: Home or Self Care Attending Physician: Akil Casas MD Admitting Physician: Akil Casas MD Allergies, Adverse Reactions, Alerts Substance Reaction Severity Status codeine Unknown Itching Severe Active gentamicin Moderate Active erythromycin Medication interaction Activ e aspirin Medication interaction Severe Activ e NSAIDs Severe Active azithromycin Unknown Severe Active Toradol Kidney failure as a complication of care Severe Active Functional Status 02/14/22 Recent Travel History No recent travel Other [...] wheezing, # 6.7 g, 0 Refill(s), Pharmacy: [facility] [place], [place], 73, cm, 09/13/21 23:53:00 CDT, Height/Length [...] needed, # 12 cap, 0 Refill(s), Pharmacy: [facility] [place], [place], 157, cm, 11/04/21 20:02:00 CDT, Height/Length [...] BID, # 180 tab, 3 Refill(s), Pharmacy: [facility], 157.48, cm, 02/07/22 18:45:00CST, Height/Length Dosing, 72.57, kg, 02/07/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, Weight Dosing Start Date: 02/13/22 Status: Ordered [...] nausea/vomiting, # 20 tab, 0 Refill(s), Pharmacy: [facility] [place], [place], 157, cm, 09/29/21 23:03:00 CDT, Height/Length [...] Oral [35.8-37.3 Deg C] 36.9 Deg C (02/14/22 10:36 AM) Peripheral Pulse Rate [60-100 bpm] 71 bp m (02/14/22 11:42 AM) 76 bpm (02/14/22 10:36 AM) Respiratory Rate [12-24 br/min] 18 br/mi n (02/14/22 11:42 AM) 18 br/min (02/14/22 10:36 AM) Blood Pressure [90-140/60-90 mmHg] 137/8 8mmHg (02/14/22 11:42 AM) 116/75mmHg (02/14/22 10:36 AM) Weight Dosing 72.57 kg (02/14/22 10:51 AM) Weight Estimated 72.57 kg (02/14/22 10:36 AM) Height/Length Dosing 157.480 cm (02/14/22 10:51 AM) Height/Length Estimated 157.480 cm (02/14/22 10:36 AM) Social History Social History Type Response Tobacco Current some day tob acco user Tobacco Use:. Sex Hospital Discharge Instructions Patient Education 02/14/2022 11:02:28 Chronic Migraine Headache Chronic Migraine Headache A [...] these instructions at home: Medicines ??? Take itsr-xfh-rcmbqmj and prescription medicines only as told by [...] Headache and Migraine Patients (CHAMP): headachemigraine.org ??? [place] Migraine Foundation: americanmigrainefoundation.org ??? National Headache Foundation: [...] ?? 2021 [employer] Follow Up Care 02/14/2022 10:36:18 With:Hermes Ramirez MD Address: [address] [place] [address], [address] [place] [address]- When:1 week Comments:If you develop fever, visual changes,??weakness, numbness,??difficulty walking or new concerning symptoms, return to the emergency department. Physician Emergency department Note * Akil Casas MD: PERFORM Event Display: ED Note Physician Authored Date: [id number] MISHA JACKSON :1980 Age:41 years Sex:Female Visit Date:02/14/2022 Primary Care Physician: Hermes Ramirez MD Basic Information Time Seen: Akil Casas MD / 02/14/2022 10:53 Chief Complaint Migraine headache History Of Present Illness: 41-year-old woman with history of chronic migraines,??cervicalgia,??and??renal??and??hepatic transplant comes to the emergency department complaining of??typical migraine??with nausea and photophobia.?? Patient states that??she has had no vomiting or fever. ??She took some??butalbital??at 5 this morning with??no effect.?? She denies visual changes and weakness. ??She has had??no recent illness and denies fever.?? She states that she was??exposed to several people over the weekend who had gastroe nteritis.?? She has??other GI??no symptoms. Review of Systems: Constitutional:?No??fevers,?No??chills Eye:?No??recent visual problems ENT:?No??nasal congestion,?No??sore throat Respiratory:?No??shortness of breath,?No??cough Cardiovascular:?No??Chest pain,?No??palpitations,?No??syncope Gastrointestinal:?Positive fornausea,?No??vomiting,?No??diarrhea Musculoskeletal:??No??back pain,??No??neck pain,??No??joint pain,??No??muscle pain,??No??decreased range of motion Integumentary:?No??rash,?No??pruritus,?No??abrasions Neurologic: No weakness, no numbness Psychiatric:?No??anxiety,?No??depression Physical Exam Vitals & Measurements T:??36.9?C ??(Oral)?? HR:??76??(Peripheral)?? RR:??18?? BP:??116/75?? SpO2:??100%?? HT:??157.480??cm?? WT:??72.57??kg??(Estimated)?? Pain Score:??8?? O2 Therapy:??Room air?? General: Alert and oriented, well nourished,??moderate acute distress Eye: PERRL, EOMI,?Normal??conjunctiva HENT: Normocephalic,No??scleral icterus, Neck: Supple, non-tender Lungs: Clear to auscultation and percussion,?Non-labored?? respiration Heart:?Normal?? rate,?Regular??rhythm,?No??murmur,??No??edema Musculoskeletal:?Normal?? 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 [address] [place] [address]- Additional Instructions: If you develop fever, visual changes,??weakness, numbness,??difficulty walking or new concerning symptoms, return to the [...] Family History Cancer: Mother. Electronically Signed on 02/14/22 11:34 AM Akil Casas MD Patient Care team information Personnel Name: Hermes Ramirez MD Address: Address: [facility], [address] [place] [address]
--- OUTSIDE RECORDS SUMMARY | 2024-03-20 11:40 | XMS_ITS | Continuity of Care Document ---
Author Organization [facility] Address [address] [place] [address] Care Team Providers Care Banquet Attendant Name Role Phone Hermes Ramirez Primary Care Physician Encounter [facility] [id number] Date(s): 05/03/23 - 05/03/[address] [address] [place] Encounter Diagnosis Acute migraine(Discharge Diagnosis) - 05/03/23 Abdominal pain(Discharge Diagnosis) - 05/03/23 Discharge Disposition: Home or Self Care Attending [...] Daily, # 30 tab, 11 Refill(s), Pharmacy: [place], [place], 157.48, cm, 01/04/23 15:03:00 CDT, Height/Length [...] BID, # 60 cap, 11 Refill(s), Pharmacy: [place], [address], cm, 01/04/23 15:03:00 CDT, Height/Length [...] 0 Refill(s), 06/02/23 5:10:00 AM CDT, Pharmacy: [place], [place], [address], cm, 04/29/23 2:33:00 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, Height, 81, kg, 04/29/23 2:41:00 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, Weight Dosing Start Date: 05/03/23 Stop Date: [...] 1normal 2normal Results Laboratory List Name Date Drug Screen Urine 05/03/23 Urinalysis with Culture if Indicated 04/20 07/11 Amylase Level 05/03/23 CBC w/ Diff 05/03/23 Comprehensive Metabolic Panel 05/03/23 Lipase Level 05/03/23 .Urine Volume 05/03/23 Automated Diff 05/03/23 Urinalysis Microscopic 05/03/23 Most recent to oldest [Reference Range]: 1 WBC [4.0-11.5 K/mcL] 5.4 K/mcL (05/03/23 4:13 AM) RBC [4.20-5.40 x10^6/mcL] 3.71 x10^6/mcL *LOW* (05/03/23 4:13 AM) Neutro Auto 66.8 % *NA* (05/03/23 4:13 AM) Lymph Auto 20.4 % *NA* (05/03/23 4:13 AM) [place] Auto 8.3 % *NA* (05/03/23 4:13 AM) Basophil Auto 0.2 % *NA* (05/03/23 4:13 AM) BUN [7-18 mg/dL] 24 mg/dL *HI* (05/03/23 4:13 AM) U Amph Scrn [Negative] Negative 1 (05/03/23 4:13 AM) UA Color Yellow (05/03/23 4:13 AM) UA WBC [0-5] None (05/03/23 4:13 AM) Glucose Level [70-110 mg/dL] 108 mg/dL (05/03/23 4:13 AM) Potassium Level [3.5-5.1 mmol/L] 4.1 mmo l/L (05/03/23 4:13 AM) Baso Absolute [0.0-0.1 x10^3/mcL] 0.0 x1 0^3/mcL (05/03/23 4:13 AM) U Benzodia Scrn [Negative] Negative (05/03/23 4:13 AM) MCV [78.0-100.0 fL] 100.8 fL *HI* (05/03/23 4:13 AM) UA Urobilinogen [Normal mg/dL] Normal mg /dL (05/03/23 4:13 AM) UA Bili [Negative mg/dL] Negative mg/dL (05/03/23 4:13 AM) UA Ketones [Negative mg/dL] Negative mg/ dL (05/03/23 4:13 AM) AST [15-37 unit/L] 69 unit/L *HI* (05/03/23 4:13 AM) Amylase Level [25-115 unit/L] 46 unit/L (05/03/23 4:13 AM) ALT [12-78 unit/L] 66 unit/L (05/03/23 4:13 AM) MCHC [29.0-37.5 g/dL] 33.2 g/dL (05/03/23 4:13 AM) Sodium Level [136-145 mmol/L] 142 mmol/L (05/03/23 4:13 AM) UA RBC [0-3] None (05/03/23 4:13 AM) UA Leuk Est [Negative Guille/mcL] Negative Guille/mcL (05/03/23 4:13 AM) Lymph Absolute [0.8-5.8 x10^3/mcL] 1.1 x 10^3/mcL (05/03/23 4:13 AM) UA Nitrite [Negative] Negative (05/03/23:13 AM) UA Glucose [Normal mg/dL] Normal mg/dL (05/03/23:13 AM) Hct [36.0-48.0 %] 37.4 % (05/03/23 4:13 AM) UA Bacteria [None Seen] Occasional *ABN* (05/03/23 4:13 AM) Lipase Level [16-77 unit/L] 40 unit/L (05/03/23 4:13 AM) U Cocaine Scrn [Negative] Negative (05/03/23:13 AM) Calcium Level [8.5-10.1 mg/dL] 8.2 mg/dL *LOW* (05/03/23 4:13 AM) [place] Absolute [0.1-1.5 x10^3/mcL] 0.5 x1 0^3/mcL (05/03/23 4:13 AM) Albumin Level [3.4-5.0 g/dL] 2.8 g/dL *LOW* (05/03/23 4:13 AM) Protein Total [6.4-8.2 g/dL] 6.8 g/dL (05/03/23 4:13 AM) UA Protein [Negative mg/dL] Negative mg/ dL (05/03/23 4:13 AM) MCH [27.0-34.0 pg] 33.4 pg (05/03/23 4:13 AM) Neutro Absolute [1.5-8.1 x10^3/mcL] 3.6 x10^3/mcL (05/03/23 4:13 AM) Bilirubin Total [0.0-1.0 mg/dL] 1.0 mg/d L (05/03/23 4:13 AM) Hgb [12.0-16.0 g/dL] 12.4 g/dL (05/03/23 4:13 AM) Alk Phos [46-130 unit/L] 422 unit/L *HI* (05/03/23 4:13 AM) UA Blood [Negative Rocael/mcL] Negative Rocael /mcL (05/03/23 4:13 AM) MPV [6.0-10.0 fL] 11.3 fL *HI* (05/03/23:13 AM) UA Mucous [None Seen] None Seen (05/03/23 4:13 AM) UA Spec Grav 1.020 (05/03/23:13 AM) Platelets [150-450 K/mcL] 158 K/mcL (05/03/23 4:13 AM) CO2 [21-32 mmol/L] 20 mmol/L *LOW* (05/03/23 4:13 AM) Eos Absolute [0.0-0.5 x10^3/mcL] 0.2 x10 ^3/mcL (05/03/23 4:13 AM) U Kateryna Scrn [Negative] Negative (05/03/23 4:13 AM) UA Squam Epithelial [None Seen] Occasion al (05/03/23 4:13 AM) UA pH [5.0-9.0] 6.0 (05/03/23 4:13 AM) U Opiate Scrn [Negative] Negative (05/03/23 4:13 AM) eGFR Non-AA 43 *NA* (05/03/23 4:13 AM) eGFR AA 51 *NA* (05/03/23 4:13 AM) UA Appear [Clear] Slightly Hazy (05/03/23 4:13 AM) Chloride Level [97-107 mmol/L] 108 mmol/ L *HI* (05/03/23 4:13 AM) U Oxy Scrn [Negative] Negative (05/03/23 4:13 AM) U PCP Scrn [Negative] Negative (05/03/23 4:13 AM) RDW-CV [11.5-15.0 %] 13.7 % (05/03/23 4:13 AM) U THC Scr [Negative] Negative (05/03/23 4:13 AM) Imm Gran Absolute [0.0-0.1 x10^3/mcL] 0. 0 x10^3/mcL (05/03/23 4:13 AM) Imm Gran Auto 0.4 % *NA* (05/03/23 4:13 AM) NRBC Auto 0.0 % *NA* (05/03/23 4:13 AM) NRBC Absolute [0.0-0.0 x10^3/mcL] 0.0 x1 0^3/mcL (05/03/23 4:13 AM) Slide Review Not Indicated (05/03/23 4:13 AM) UA Culture Ind?. Not Indicated (05/03/23 4:13 AM) Urine Srce Clean Catch (05/03/23 4:13 AM) U mAMP Scr [Negative] Negative (05/03/23 4:13 AM) U TCA Scr [Negative] Negative (05/03/23 4:13 AM) Urine Volume 12 mL (05/03/23 4:13 AM) Creatinine Level [0.60-1.30 mg/dL] 1.45 mg/dL 2 *HI* (05/03/23 4:13 AM) Anion Gap [5-15 mmol/L] 18 mmol/L *HI* (05/03/23 4:13 AM) Eos, Auto 3.9 % *NA* (05/03/23 4:13 AM) UA Yeast [None Seen] None Seen (05/03/23 4:13 AM) 1Interpretive Data: Positive results are unconfirmed. Confirmatory testing is available upon requestwith physician order. Specimens will be held in the laboratory for 72 hours. Unconfirmed positive screening results should not be used for non medical purposes. Drugs Threshold Concentrations Amphetamines >500 ng/mL TCA >300 ng/mL Barbiturates >200 ng/mL Methamphetamines >500 ng/mL Opiates >100 ng/mL Cocaine >150 ng/mL THC >50 ng/mL Phencyclidine >25 ng/mL Benzo >150 ng/mL Oxycodone >100 ng/mL 2Interpretive Data: Association of GFR and staging [...] Oral [35.8-37.3 Deg C] 37.1 Deg C (05/03/23 3:15 AM) Peripheral Pulse Rate [60-100 bpm] 83 bp m (05/03/23 3:15 AM) Respiratory Rate [12-24 br/min] 16 br/mi n (05/03/23 3:15 AM) Blood Pressure [90-140/60-90 mmHg] 156/9 7mmHg *HI* (05/03/23 3:15 AM) Mean Arterial Pressure, Cuff [70-110 mmH g] 117 mmHg *HI* (05/03/23 3:15 AM) Weight Estimated 82 kg (05/03/23 3:15 AM) Social History Social History Type Response Tobacco Current everyday tob acco user Tobacco Use:. 1 Sex 1Pt states that she smokes half a pack a day. Hospital Discharge Instructions Patient Education 05/03/2023 05:11:37 Abdominal Pain, Adult Abdominal Pain, Adult Pain in the abdomen (abdominal pain) can be caused by many things. Often, abdominal pain is not serious and it gets better with no treatment or by being treated at home. However, sometimes abdominal pain is serious. Your health care provider will ask questions about your medical history and do a physical exam to try to determine the cause of your abdominal pain. Follow these instructions at home: Medicines ??? Take dvwm-hvc-gjvxrzj and prescription medicines only as told by your health care provider. ??? Do not take a laxative unless told by your health care provider. General instructions ??? Watch your condition for any changes. ??? Drink enough fluid to keep your urine pale yellow. ??? Keep all follow-up visits as told by your health care provider. This is important. Contact a health care provider if: ??? Your abdominal pain changes or gets worse. ??? You are not hungry or you lose weight without trying. ??? You are constipated or have diarrhea for more than 2???3 days. ??? You have pain when you urinate or have a bowel movement. ??? Your abdominal pain wakes you up at night. ??? Your pain gets worse with meals, after eating, or with certain foods. ??? You are vomiting and cannot keep anything down. ??? You have a fever. ??? You have blood in your urine. Get help right away if: ??? Your pain does not go away as soon as your health care provider told you to expect. ??? You cannot stop vomiting. ??? Your pain is only in areas of the abdomen, such as the right side or the left lower portion of the abdomen. Pain on the right side could be caused by appendicitis. ??? You have bloody or black stools, or stools that look like tar. ??? You have severe pain, cramping, or bloating in your abdomen. ??? You have signs of dehydration, such as: ??? Dark urine, very little urine, or no urine. ??? Cracked lips. ??? Dry mouth. ??? Sunken eyes. ??? Sleepiness. ??? Weakness. ??? You have trouble breathing or chest pain. Summary ??? Often, abdominal pain is not serious and it gets better with no treatment or by being treated at home. However, sometimes abdominal pain is serious. ??? Watch your condition for any changes. ??? Take yjff-bed-bkjvzqs and prescription medicines only as told by your health care provider. ??? Contact a health care provider if your abdominal pain changes or gets worse. ??? Get help right away if you have severe pain, cramping, or bloating in your abdomen. This information is not intended to replace advice given to you by your health care provider. Make sure you discuss any questions you have with your health care provider. Document Revised: 04/24/2020 Document Reviewed: 07/15/2019 [employer] Patient Education ?? 2022 [employer] Follow Up Care 05/03/2023 03:15:11 With:Follow up with primary care provider Address:Unknown When:1 month Patient Care team information Care Team Personnel Name: Jessee Jones NP Position: Physician Member Role: Nurse Practitioner Address: Address: [address] [place] [address], [address] [place] [address]- Name: Latoya Marquez SILK SCREEN REPAIRER Position: Physician Member Role: Nurse Practitioner Address: Address: [address] [place] [address]- Name: Leonila Gonzalez SILK SCREEN REPAIRER Position: Physician Member Role: Nurse Practitioner Address: Address: [address] [place] [address]- Name: Beth Brandt SILK SCREEN REPAIRER Position: Physician Member Role: Nurse Practitioner Address: Address: [address] [place] [address] Name: Hermes Ramirez MD Position: Physician Member Role: Informed Provider Address: Address: [address] [place] [address], [address] [place] [address]- Name: Pillo Moe SILK SCREEN REPAIRER Position: Physician Member Role: Nurse Practitioner Address: Address: [address] [place] [address], [address] [facility] Care Team Related Persons Name: STACIA JONES Address: Home [address] [place], [place] [id number] Name: ROBYN JAMA
--- OUTSIDE RECORDS SUMMARY | 2024-03-20 11:40 | XMS_ITS | Continuity of Care Document ---
Author Organization [facility] Address [address] [place] [address] Care Team Providers Care Bi Consultant Name Role Phone Vijaynixon Hermes Chris Primary Care Physician Encounter ONOFRE MCGRAW [id number] Date(s): 06/01/23 - 06/01/[address] [address]- [place] Encounter Diagnosis Common migraine(Discharge Diagnosis) - 06/01/23 Discharge Disposition: Home or Self Care Attending [...] from: Title:ED Provider Note Author:Daron Acuna MD Date:06/01/23 Assessment/Plan Common migraine??G43.009 -Discussed f/u with pcp and neurologist for Migraines -Pt should take tylenol and plenty of fluids. Patient Discharge Condition stable Discharge Disposition Home Patient Education Migraine Headache Follow Up With [...] Date Status Refusal Reason tetanus/diphth/pertuss (Tdap) adult/adol 8/1/22 Given tetanus/diphth/pertuss (Tdap) adult/adol 05/10/17 Recorded tetanus/diphth/pertuss (Tdap) adult/adol 03/20/17 Recorded tetanus/diphth/pertuss (Tdap) adult/adol 05/25/12 Recorded hepatitis B adult vaccine 11/10/17 Recorded hepatitis B adult vaccine 10/09/17 Recorded hepatitis A adult vaccine 10/09/17 Recorded Medications amLODIPine 5 mg oral tablet 5 mg = 1 tab, Oral, Daily, # 30 tab, 11 Refill(s), Pharmacy: [place], [place], 157.48, cm, 01/04/23 15:03:00 CDT, Height/Length [...] BID, # 60 cap, 11 Refill(s), Pharmacy: [place], [place], 157.48, cm, 01/04/23 15:03:00 CDT, Height/Length [...] Oral [35.8-37.3 Deg C] 36.9 Deg C (06/01/23 2:15 PM) Peripheral Pulse Rate [60-100 bpm] 82 bp m (06/01/23 4:23 PM) 77 bpm (06/01/23 2:15 PM) Respiratory Rate [12-24 br/min] 20 br/mi n (06/01/23 4:23 PM) 20 br/min (3/14/24 2:15 PM) Blood Pressure [90-140/60-90 mmHg] 140/8 2mmHg (06/01/23 4:23 PM) 148/88mmHg *HI* (06/01/23 2:15 PM) Mean Arterial Pressure, Cuff [65-140 mmH g] 108 mmHg (06/01/23 2:15 PM) Weight 81.65 kg (06/01/23 2:15 PM) Weight Dosing 81.650 kg (06/01/23 2:15 PM) Height 157.48 cm (06/01/23 2:15 PM) Body Mass Index 32.92 kg/m2 (06/01/23 2:15 PM) Social History Social History Type Response Tobacco Current everyday tob acco user Tobacco Use:. 1 Sex 1Pt states that she smokes half a pack a day. Hospital Discharge Instructions Patient Education 06/01/2023 15:24:10 Migraine Headache Migraine Headache A migraine headache [...] these instructions at home: Medicines ??? Take nfso-drc-intgzcs and prescription medicines only as told by your health care provider. ??? Ask your health care provider if the medicine prescribed to you: ??? Requires you to avoid driving or using heavy machinery. ??? Can cause constipation. You may need to take these actions to prevent or treat constipation: ??? Drink enough fluid to keep your urine pale yellow. ??? Take zlyr-ugh-styasul or prescription medicines. ??? Eat foods that [...] provider. Document Revised: 08/18/2022 Document Reviewed: 04/18/2019 [employer] Patient Education ?? 2022 Sara Campbell. Follow Up Care 06/01/2023 14:15:43 With:Follow up with primary care provider Address:Unknown When:2 to 4 days Physician Emergency department Note * Daron Acuna MD: PERFORM, MODIFY, MODIFY, MODIFY, MODIFY Event Display: ED Note Physician Authored Date: [id number] MISHA JACKSON :1980 Age:42 years Sex:Female Visit Date:06/01/2023 Primary Care Physician: Hermes Ramirez MD Basic Information Time Seen: Daron Acuna MD / 06/01/2023 14:29 History Of Present Illness: Pt is 42??year old female that??presents to the emergency room by POV from home with a migraine headache that is the same as all of her previous, many visits. Pt also reports having complaint of respiratory??congestion??after being??recently diagnosed with RSV.?? The patient who has history of??liver transplant [...] Integumentary:?No??rash,?No??pruritus,?No??abrasions Neurologic: Alert & oriented X 4, headache Psychiatric:?No??anxiety,?No??depression Physical Exam General: Alert and [...] and affect Procedure No Qualifying Data Assessment/Plan Common migraine??G43.009 -Discussed f/u with pcp and neurologist for Migraines -Pt should take tylenol and plenty of fluids. Patient Discharge Condition stable Discharge Disposition Home Patient Education Migraine Headache Follow Up With [...] (mycophenolate mofetil 250 mg oral capsule) ?? pantoprazole (Protonix 40 mg oral delayed release tablet)1 tab Oral (given by mouth) every day for 30 Days. Refills: 0. ?? venlafaxine (venlafaxine 37.5 mg [...] Liver transplantation (05/08/2020)???Mammogram (2020)??? delivery???cyst removal from [facility]???[place]???liver transplant Allergies NSAIDs Toradol??(Kidney failure as a complication of care) aspirin??(Medication interaction) azithromycin??(Unknown) codeine??(Unknown, Itching) gentamicin morphine??(redness, Itching) erythromycin??(Medication interaction) Social History Alcohol Never Electronic Cigarette/Vaping Electronic Cigarette Use: Never. Substance Use Never Tobacco Current everyday tobacco user Tobacco Use:.- Comments: Pt states that she smokes half a pack a day. Family History Cancer: Mother. Electronically Signed on 06/01/23 04:15 PM Daron Acuna MD Patient Care team information Care Team Personnel Name: Jessee Jones HEAD START ASSISTANT TEACHER Position: Physician Member Role: Nurse Practitioner Address: Address: [address] [place] [address], [address] Name: Latoya Marquez HEAD START ASSISTANT TEACHER Position: Physician Member Role: Nurse Practitioner Address: Address: [address] [place] [address]- Name: Leonila Gonzalez HEAD START ASSISTANT TEACHER Position: Physician Member Role: Nurse Practitioner Address: Address: [address] [place] [address]- Name: Beth Brandt HEAD START ASSISTANT TEACHER Position: Physician Member Role: Nurse Practitioner Address: Address: [address] [place] [address] Name: Hermes Ramirez MD Position: Physician Member Role: Informed Provider Address: Address: [address] [place] [address], [address] [place] [address]- Name: Pillo Moe HEAD START ASSISTANT TEACHER Position: Physician Member Role: Nurse Practitioner Address: Address: [address] [place] [address], [address] [facility] Care Team Related Persons Name: STACIA JONES Address: Home [address] [phone] Name: MADY CHEN Name: MADY CHEN
--- OUTSIDE RECORDS SUMMARY | 2024-03-20 11:40 | XMS_ITS | Continuity of Care Document ---
Author Organization [facility] Address [address] [place] [address] Care Team Providers Care Classified Ad Clerk Name Role Phone Hermes Ramirez Primary Care Physician Encounter ONOFRE MCGRAW [id number] Date(s): 07/14/22 - 07/14/22 [facility] [address] [place] [address]- [place] Discharge Disposition: Home or Self Care Attending Physician: Allen Manzano Admitting Physician: Allen Manzano Referring Physician: Allen Manzano Allergies, Adverse Reactions, Alerts [...] wheezing, # 6.7 g, 0 Refill(s), Pharmacy: [place], [place], 73, cm, 09/13/21 23:53:00 CDT, Height/Length [...] needed, # 12 cap, 0 Refill(s), Pharmacy: [place], [place], 157, cm, 11/04/21 20:02:00 CDT, Height/Length [...] BID, # 180 tab, 3 Refill(s), Pharmacy: [facility], 157.48, cm, 02/07/22 18:45:00CST, Height/Length Dosing, 72.57, kg, 02/07/22 18:45:00 FRUIT WORKER, Weight Dosing Start Date: 02/13/22 Status: Ordered Pepcid 20 mg oral tablet 20 mg = 1 tab, Oral, BID, 0 Refill(s) Start Date: 09/29/20 Status: Ordered Phenergan 25 mg oral tablet 25 mg = 1 tab, Oral, every 6 hr, PRN as needed for nausea/vomiting, # 20 tab, 0 Refill(s), Pharmacy: [facility] - [place], [place], 157, cm, 09/29/21 23:03:00 CDT, Height/Length [...] information Care Team Personnel Name: Jessee Jones ENGLISH DRAWER Position: Physician Member Role: Nurse Practitioner Address: Address: [address] [place] [address], [facility] [address] [place] [address]- Name: Laotya Marquez ENGLISH DRAWER Position: Physician Member Role: Nurse Practitioner Address: Address: [address] [place] [address]- Name: Leonila Gonzalez ENGLISH DRAWER Position: Physician Member Role: Nurse Practitioner Address: Address: [address] [place] [address]- Name: Beth Brandt ENGLISH DRAWER Position: Physician Member Role: Nurse Practitioner Address: Address: [address] [place] [address] Name: Hermes Ramirez MD Position: Physician Member Role: Informed Provider Address: Address: [address] [place] [address], [address] [place] [address]- Name: Pillo Moe ENGLISH DRAWER Position: Physician Member Role: Nurse Practitioner Address: Address: [address] [place] [address], [address] [facility] Care Team Related Persons Name: STACIA JONES Address: Home [address] [place], [place] [id number] Name: ROBYN JAMA Address: Home
--- OUTSIDE RECORDS SUMMARY | 2024-03-20 11:40 | XMS_ITS | Continuity of Care Document ---
Author Organization [facility] Address [address] [place] [address] Care Team Providers Care Zinc Chloride Operator Name Role Phone VijaynixonHermes Chris Primary Care Physician Encounter RANDY MCGRAW [id number] Date(s): 09/13/23 - 09/13/[address] [address]- [place] Discharge Disposition: Home or [...] care Severe Active azithromycin Unknown Severe Active morphine 1 redness Itching Mild Active 1localized reaction at iv site Assessment and Plan Future Appointments Diagnostic Tests Pending * Cyclosporine, Blood LC-MS/MS LC 09/13/23 Future Scheduled Tests Radiology* MG Mammo Diagnostic [...] Daily, # 30 tab, 11 Refill(s), Pharmacy: [place], [place], 157.48, cm, 01/04/23 15:03:00 CDT, Height/Length Dosing, 81.65, kg, 01/04/23 15:03:00 CDT, Weight Dosing Start Date: 01/11/23 Status: Ordered aspirin 81 mg oral delayed release tablet 81 mg = 1 tab, Oral, Daily, # 30 tab, 0 Refill(s) Start Date: 04/05/21 Status: Ordered gabapentin 300 mg oral capsule 600 mg = 2 cap, Oral, BID, # 120 cap, 2 Refill(s), Pharmacy: [facility] [place], 157.48, cm, 07/23/23 17:59:00 CDT, Height, 88.45, [...] BID, # 60 cap, 11 Refill(s), Pharmacy: [place], [place], 157.48, cm, 01/04/23 15:03:00 CDT, Height/Length Dosing, 81.65, kg, 01/04/23 15:03:00 CDT, Weight Dosing Start Date: 01/11/23 Status: Ordered Nicotrol Inhaler 10 mg inhalation device See Instructions, 6-16 cartriges/day, # 1 EA, 2 Refill(s), Pharmacy: [id number], 157.48, cm, 08/29/23 14:22:00 CDT, Height, 88, kg, 08/29/23 14:27:00 CDT, Weight Dosing Start Date: 08/29/23 Status: Ordered pantoprazole 40 mg oral delayed release tablet 1 tab, Oral, Daily, # 90 tab, 0 Refill(s), Pharmacy: [id number], 157.48, cm, 06/07/23 16:07:00 CDT, Height, 89.36, [...] QID, # 360 tab, 0 Refill(s), [id number], 157.48, cm, 08/29/23 14:22:00 CDT, Height, 88, kg, 08/29/23 14:27:00 CDT, Weight Dosing Start Date: 09/05/23 Status: Ordered venlafaxine 37.5 mg oral capsule, extended release 37.5 mg = 1 cap, Oral, Daily, # 90 cap, 0 Refill(s), Pharmacy: [id number] [place], 157.48, cm, 08/29/23 14:22:00 CDT, Height, [...] Results Laboratory List Name Date Automated Diff 09/13/23 CBC w/ Diff 09/13/23 Comprehensive Metabolic Panel 09/13/23 GGT 09/13/23 Most recent to oldest [Reference Range]: 1 WBC [4.0-11.5 K/mcL] 6.2 K/mcL (09/13/23 6:13 AM) RBC [4.20-5.40 x10^6/mcL] 4.07 x10^6/mcL *LOW* (09/13/23 6:13 AM) Neutro Auto 59.6 % *NA* (09/13/23 6:13 AM) Lymph Auto 25.0 % *NA* (09/13/23 6:13 AM) Beadle Auto 9.6 % *NA* (09/13/23 6:13 AM) Basophil Auto 0.2 % *NA* (09/13/23 6:13 AM) BUN [7-18 mg/dL] 29 mg/dL *HI* (09/13/23 6:13 AM) Glucose Level [70-110 mg/dL] 93 mg/dL (09/13/23 6:13 AM) Potassium Level [3.5-5.1 mmol/L] 4.2 mmo l/L (09/13/23 6:13 AM) Baso Absolute [0.0-0.1 x10^3/mcL] 0.0 x1 0^3/mcL (09/13/23 6:13 AM) MCV [78.0-100.0 fL] 97.8 fL (09/13/23 6:13 AM) AST [15-37 unit/L] 17 unit/L (09/13/23 6:13 AM) ALT [12-78 unit/L] 20 unit/L (09/13/23 6:13 AM) MCHC [29.0-37.5 g/dL] 34.4 g/dL (09/13/23 6:13 AM) Sodium Level [136-145 mmol/L] 139 mmol/L (09/13/23 6:13 AM) Lymph Absolute [0.8-5.8 x10^3/mcL] 1.6 x 10^3/mcL (09/13/23 6:13 AM) Hct [36.0-48.0 %] 39.8 % (09/13/23 6:13 AM) Calcium Level [8.5-10.1 mg/dL] 9.2 mg/dL (09/13/23 6:13 AM) Beadle Absolute [0.1-1.5 x10^3/mcL] 0.6 x1 0^3/mcL (09/13/23 6:13 AM) Albumin Level [3.4-5.0 g/dL] 3.3 g/dL *LOW* (09/13/23 6:13 AM) Protein Total [6.4-8.2 g/dL] 6.9 g/dL (09/13/23 6:13 AM) MCH [27.0-34.0 pg] 33.7 pg (09/13/23 6:13 AM) Neutro Absolute [1.5-8.1 x10^3/mcL] 3.7 x10^3/mcL (09/13/23 6:13 AM) Bilirubin Total [0.0-1.0 mg/dL] 0.5 mg/d L (09/13/23 6:13 AM) Hgb [12.0-16.0 g/dL] 13.7 g/dL (09/13/23 6:13 AM) Alk Phos [46-130 unit/L] 238 unit/L *HI* (09/13/23 6:13 AM) MPV [6.0-10.0 fL] 11.0 fL *HI* (09/13/23 6:13 AM) Platelets [150-450 K/mcL] 141 K/mcL *LOW* (09/13/23 6:13 AM) CO2 [21-32 mmol/L] 18 mmol/L *LOW* (09/13/23 6:13 AM) Eos Absolute [0.0-0.5 x10^3/mcL] 0.3 x10 ^3/mcL (09/13/23 6:13 AM) GGT [5-55 unit/L] 186 unit/L *HI* (09/13/23 6:13 AM) Chloride Level [97-107 mmol/L] 107 mmol/ L (09/13/23 6:13 AM) RDW-CV [11.5-15.0 %] 12.0 % (09/13/23 6:13 AM) Imm Gran Absolute [0.0-0.1 x10^3/mcL] 0. 0 x10^3/mcL (09/13/23 6:13 AM) Imm Gran Auto 0.5 % *NA* (09/13/23 6:13 AM) NRBC Auto 0.0 % *NA* (09/13/23 6:13 AM) NRBC Absolute [0.0-0.0 x10^3/mcL] 0.0 x1 0^3/mcL (09/13/23 6:13 AM) Slide Review Not Indicated (09/13/23 6:13 AM) Creatinine Level [0.60-1.30 mg/dL] 2.28 mg/dL 1 *HI* (09/13/23 6:13 AM) Anion Gap [5-15 mmol/L] 18 mmol/L *HI* (09/13/23 6:13 AM) Eos, Auto 5.1 % *NA* (09/13/23 6:13 AM) eGFR CKD-EPI 27 mL/min/1.73 m2 *NA* (09/13/23 6:13 AM) 1Interpretive Data: Association of GFR and [...] information Care Team Personnel Name: Jessee Jones PREPARATION PLANT REPAIRER Position: Physician Member Role: Nurse Practitioner Address: Address: [address] [place] [address], [address] Name: Latoya Marquez PREPARATION PLANT REPAIRER Position: Physician Member Role: Nurse Practitioner Address: Address: [address] [place] [address] Name: Leonila Gonzalez PREPARATION PLANT REPAIRER Position: Physician Member Role: Nurse Practitioner Address: Address: [address] [place] [address] Name: Beth Brandt PREPARATION PLANT REPAIRER Position: Physician Member Role: Nurse Practitioner Address: Address: [address] [place] [address] Name: Hermes Ramirez MD Position: Physician Member Role: Informed Provider Address: Address: [address] [place] [address], [address] Name: Pillo Moe PREPARATION PLANT REPAIRER Position: Physician Member Role: Nurse Practitioner Address: Address: [address] [place] [address], [address] [facility] Care Team Related Persons Name: STAICA JONES Address: Home [address] [phone] Name: ROBYN JAMA Name: NAIF CHOI Name: MADY CHEN Name: MADY CHEN
--- OUTSIDE RECORDS SUMMARY | 2024-03-20 11:40 | XMS_ITS | Continuity of Care Document ---
Author [facility] Address [address] [place] [address]- Care Team Providers Care Warehouse Checker Name Role Phone Hermes Ramirez Primary Care Physician Encounter ONOFRE MCGRAW [id number] Date(s): 02/01/22 - 02/01/22 [facility] [address], [place] [address] Discharge Disposition: Home or Self Care Attending Physician: Hermes Ramirez MD Allergies, Adverse Reactions, Alerts Substance Reaction Severity Status codeine Unknown Itching Severe Active gentamicin Moderate Active erythromycin Medication interaction Activ e azithromycin Unknown Severe Active aspirin Medication interaction Severe Activ e Toradol Kidney failure as a complication of care Severe Active NSAIDs Severe Active Functional Status 02/01/22 Other exposure to Infectious Disease Non e [...] Refill(s), Pharmacy: [facility] - [place], [place], 73, cm, 09/13/21 23:53:00 CDT, Height/Length [...] needed, # 12 cap, 0 Refill(s), Pharmacy: [place], [place], 157, cm, 11/04/21 20:02:00 CDT, Height/Length [...] BID, # 180 tab, 3 Refill(s), Pharmacy: [place], [place], 157, cm, 10/22/20 21:26:00 CDT, Height/Length [...] nausea/vomiting, # 20 tab, 0 Refill(s), Pharmacy: [place], [place], 157, cm, 09/29/21 23:03:00 CDT, Height/Length [...] Oral [35.8-37.3 Deg C] 37.1 Deg C (02/01/22 9:25 AM) Peripheral Pulse Rate [60-100 bpm] 86 bp m (02/01/22 9:25 AM) Respiratory Rate [12-24 br/min] 18 br/mi n (02/01/22 9:25 AM) Blood Pressure [90-140/60-90 mmHg] 122/7 4mmHg (02/01/22 9:25 AM) Weight 79.83 kg (02/01/22 9:25 AM) Weight Measured (lbs) 175.995 lb (02/01/22 9:25 AM) Social History Social History Type Response Tobacco Current some day tob acco user Tobacco Use:. Sex Patient Care team information Personnel Name: Hermes Ramirez MD Address: Address: [address] [place] [address] [place] [address]
--- OUTSIDE RECORDS SUMMARY | 2024-03-20 11:40 | XMS_ITS | Continuity of Care Document ---
Author Organization [facility] Address [address] [place] [address] Care Team Providers Care Cafeteria Monitor Name Role Phone Vijaynixon Hermes Perez Primary Care Physician Encounter ONOFRE MCGRAW [id number] Date(s): 01/14/22 - 01/14/22 [place] [address] [place] [address]- [place] Discharge Disposition: Home or Self Care Attending Physician: Pillo Moe NP Admitting Physician: Pillo Moe PIANO BUILDER Allergies, Adverse Reactions, Alerts Substance Reaction Severity [...] wheezing, # 6.7 g, 0 Refill(s), Pharmacy: [facility] [place], [place], 73, cm, 09/13/21 23:53:00 CDT, Height/Length [...] needed, # 12 cap, 0 Refill(s), Pharmacy: [place], [place], 157, cm, 11/04/21 20:02:00 CDT, Height/Length Dosing, 73, kg, 11/04/21 20:02:00 CDT, Weight Dosing Start Date: 11/04/21 Status: Ordered ciprofloxacin 500 mg oral tablet 500 mg = 1 tab, Oral, every 12 hr, # 14 tab, 0 Refill(s), Pharmacy: [facility], 157, cm, 01/01/22 18:29:00 CDT, Height/Length Dosing, [...] BID, # 180 tab, 3 Refill(s), Pharmacy: [place], [place], [address], cm, 10/22/20 21:26:00 CDT, Height/Length Dosing, 74, kg, 10/22/20 21:26:00 CDT, Weight Dosing Start Date: 12/18/20 Status: Ordered ondansetron 4 mg oral tablet, disintegrating 4 mg = 1 tab, Oral, every 6 hr, PRN nausea/vomiting, # 12 tab, 0 Refill(s), Pharmacy: [place], [place], 157, cm, 11/04/21 20:02:00 CDT, Height/Length [...] nausea/vomiting, # 20 tab, 0 Refill(s), Pharmacy: [place], [place], [address], cm, 09/29/21 23:03:00 CDT, Height/Length [...] 0 Refill(s) Start Date: 10/13/21 Status: Ordered Xanax 0.5 mg oral tablet 0.5 mg = 1 tab, Oral, Once, Take 1/2 hr before procedure. May repeat one time if needed., # 2 tab, 0 Refill(s), Pharmacy: [place], [place], [address], cm, 01/05/22 0:17:00 CDT, Height/Length Dosing, 72.57, kg, 01/05/22 0:17:00 CDT, Weight Dosing Start Date: 01/10/22 Status: Ordered Problem List Condition Confirmation Course [...] Exam Date Time Procedure Performing Provider Status 01/14/22 9:19 AM MRI Spine Cervical w /o Contrast Cessna, Chelly RT(R)(MR); Auth (Verified) Notes: (MRI Spine Cervical w/o Contrast) Reason For Exam: cervical neck pain with radiculopathy MRI Spine Cervical w/o Contrast EXAM DESCRIPTION: MRI Spine Cervical w/o Contrast REASON FOR STUDY: cervical neck pain with radiculopathy, chronic neck pain with migraines, no recent injury DURATION: 20+ years Comparisons: xray 06/11/21 PREVIOUS SURGERY: kasai, liver transplant, kidney transplant, hernia, SMOKING HISTORY: less than 1/2 ppd x 20 years TECHNIQUE: Sagittal and Axial imaging includes T1, T2, STIR and gradient echo sequences. COMPARISON: Cervical spine radiographs dated 06/11/2021 and 07/05/2016. FINDINGS: ALIGNMENT: Straightening of the cervical lordosis. Mild retrolisthesis of C3 on C4. VERTEBRAE: Multilevel endplate degenerative changes with marginal spur formation, most noticeable at C5-C6 and C6-C7. DISCS: Multilevel intervertebral disc height loss. HARDWARE: None in the spine. CORD: The cervical cord signal is within normal limits. INDIVIDUAL LEVELS: C2-C3: No significant disc bulge, spinal canal or neural foraminal narrowing. C3-C4: Central disc protrusion indents the ventral cord. Dorsal CSF cleft is maintained. Right greater than left facet arthropathy. No significant neural foraminal narrowing. C4-C5: Posterior disc height complex without significant spinal canal stenosis. Uncovertebral spurring and facet arthropathy with mild neural foraminal narrowing. C5-C6: Posterior disc osteophyte complex indents the ventral thecal sac. Dorsal CSF cleft is maintained. No significant neural foraminal narrowing. C6-C7: Posterior disc osteophyte complex without significant spinal canal stenosis. There is bilateral facet arthropathy. A smaller disc protrusion along the left neural foramen contributes to mild proximal left neural foraminal narrowing. C7-T1: No significant disc bulge, spinal canal or neural foraminal narrowing. UPPER THORACIC: Incompletely imaged. Thickened ligamentum flavum and facet arthropathy contributing to right neural foraminal narrowing at T3-T4 and bilateral neural foraminal narrowing at T4-T5. IMPRESSION: 1. [id number] cervical degenerative changes as described. The spinal canal stenosis is most noticeable at C3-C4 where the disc protrusion indents the ventral cord. 2. Additional findings above. THIS IS AN ELECTRONICALLY VERIFIED FINAL REPORT 01/14/2022 9:40 AM - Electronically signed by Anthony Betancourt D.O. AP: LAKSHMI Report ID: [id number] Reading Location: [place] [address] Final Dictated by: Anthony Betancourt DO Dictated DT/TM: 01/14/2022 9:43 am Signed by: Anthony Betancourt DO Signed (Electronic Signature): 01/14/2022 9:43 am Social History Social History Type Response Tobacco Current some day tob acco user Tobacco Use:. Sex MR Cervical spine WO contrast * Anthony Betancourt DO: VERIFY, VERIFY, PERFORM Event Display: Report Authored Date: [id number] EXAM DESCRIPTION: MRI Spine Cervical w/o Contrast REASON FOR STUDY: cervical neck pain with radiculopathy, chronic neck pain with migraines, no recent injury DURATION: 20+ years Comparisons: xray 06/11/21 PREVIOUS SURGERY: kasai, liver transplant, kidney transplant, hernia, SMOKING HISTORY: less than 1/2 ppd x 20 years TECHNIQUE: Sagittal and Axial imaging includes T1, T2, STIR and gradient echo sequences. COMPARISON: Cervical spine radiographs dated 06/11/2021 and 07/05/2016. FINDINGS: ALIGNMENT: Straightening of the cervical lordosis. Mild retrolisthesis of C3 on C4. VERTEBRAE: Multilevel endplate degenerative changes with marginal spur formation, most noticeable at C5-C6 and C6-C7. DISCS: Multilevel intervertebral disc height loss. HARDWARE: None in the spine. CORD: The cervical cord signal is within normal limits. INDIVIDUAL LEVELS: C2-C3: No significant disc bulge, spinal canal or neural foraminal narrowing. C3-C4: Central disc protrusion indents the ventral cord. Dorsal CSF cleft is maintained. Right greater than left facet arthropathy. No significant neural foraminal narrowing. C4-C5: Posterior disc height complex without significant spinal canal stenosis. Uncovertebral spurring and facet arthropathy with mild neural foraminal narrowing. C5-C6: Posterior disc osteophyte complex indents the ventral thecal sac. Dorsal CSF cleft is maintained. No significant neural foraminal narrowing. C6-C7: Posterior disc osteophyte complex without significant spinal canal stenosis. There is bilateral facet arthropathy. A smaller disc protrusion along the left neural foramen contributes to mild proximal left neural foraminal narrowing. C7-T1: No significant disc bulge, spinal canal or neural foraminal narrowing. UPPER THORACIC: Incompletely imaged. Thickened ligamentum flavum and facet arthropathy contributing to right neural foraminal narrowing at T3-T4 and bilateral neural foraminal narrowing at T4-T5. IMPRESSION: 1. [id number] cervical degenerative changes as described. The spinal canal stenosis is most noticeable at C3-C4 where the disc protrusion indents the ventral cord. 2. Additional findings above. THIS IS AN ELECTRONICALLY VERIFIED FINAL REPORT 01/14/2022 9:40 AM - Electronically signed by Anthony Betancourt D.O. AP: LAKSHMI Report ID: [id number] Reading Location: [id number] Final Dictated by: Anthony Betancourt DO Dictated DT/TM: 01/14/2022 9:43 am Signed by: Anthony Betancourt DO Signed (Electronic Signature): 01/14/2022 9:43 am Patient Care team information Personnel Name: Hermes Ramirez MD Address: Address: [address] [place] [address] [place] [address]
--- OUTSIDE RECORDS SUMMARY | 2024-03-20 11:40 | XMS_ITS | Continuity of Care Document ---
Author Organization [facility] Address [address] [place] [address] Care Team Providers Care Recessing Machine Operator Name Role Phone Vijaynixon Hermes Chris Primary Care Physician Encounter ONOFRE MCGRAW [id number] Date(s): 04/05/22 - 04/05/[address] [address]- [place] Discharge Disposition: Home or Self Care Attending Physician: Palak Garnica MD Admitting Physician: Palak Garnica MD Referring Physician: Palak Garnica MD Allergies, Adverse Reactions, Alerts Substance Reaction Severity Status codeine Unknown Itching Severe Active gentamicin Moderate Active erythromycin Medication interaction Activ e azithromycin Unknown Severe Active aspirin Medication interaction Severe Activ e Toradol Kidney failure as a complication of care Severe Active NSAIDs Severe Active Assessment and Plan Future Appointments Diagnostic Tests Pending * Tacrolimus (FK506), Blood LC/MS LC 04/05/22 * Sirolimus (Rapamune), Blood LC 04/05/22 Immunizations Given and Recorded Vaccine Date Status [...] wheezing, # 6.7 g, 0 Refill(s), Pharmacy: [facility] [place], [place], 73, cm, 06/27/22 23:53:00 CDT, Height/Length Dosing, 157, kg, 09/13/21 [...] needed, # 12 cap, 0 Refill(s), Pharmacy: [place], [place], 157, cm, 11/04/21 20:02:00 CDT, Height/Length [...] 18:45:00CST, Height/Length Dosing, 72.57, kg, 02/07/22 18:45:00 HAND COLLATOR, Weight Dosing Start Date: 02/13/22 Status: Ordered oseltamivir 30 mg oral capsule 30 mg = 1 cap, Oral, BID, # 10 cap, 0 Refill(s), Pharmacy: [place], [place], 157.[address], cm, 03/16/22 18:01:00 HAND COLLATOR, Height/Length Dosing, 77.11, kg, 03/16/22 18:01:00 HAND COLLATOR, Weight Dosing Start Date: 03/16/22 Status: Ordered Pepcid 20 mg oral tablet 20 mg = 1 tab, Oral, BID, 0 Refill(s) Start Date: 09/29/20 Status: Ordered Phenergan 25 mg oral tablet 25 mg = 1 tab, Oral, every 6 hr, PRN as needed for nausea/vomiting, # 20 tab, 0 Refill(s), Pharmacy: [facility] [place], [place], 157, cm, 09/29/21 23:03:00 CDT, Height/Length [...] ([place]) from Swab collected on 16-MAR-2022 17:54:00 HAND COLLATOR tested positive for COVID-19. Procedures Procedure Date Related Diagnosis Body Site Status Bladder washout 12/14/20 Completed Kidney transplant 05/13/20 Complet ed Tx - Liver transplantation 05/08/20 Completed delivery Complet ed cyst removal from breast Completed Hernia Completed liver transplant Complete d Results Laboratory List Name Date Automated Diff 04/05/22 CBC w/ Diff 04/05/22 Comprehensive Metabolic Panel 04/05/22 GGT 04/05/22 Most recent to oldest [Reference Range]: 1 WBC [4.0-11.5 K/mcL] 8.2 K/mcL (04/05/22 5:41 AM) RBC [4.20-5.40 x10^6/mcL] 4.23 x10^6/mcL (04/05/22 5:41 AM) Neutro Auto 69.8 % *NA* (04/05/22 5:41 AM) Lymph Auto 20.6 % *NA* (04/05/22 5:41 AM) [place] Auto 6.7 % *NA* (04/05/22 5:41 AM) Basophil Auto 0.1 % *NA* (04/05/22 5:41 AM) BUN [7-18 mg/dL] 26 mg/dL *HI* (04/05/22 5:41 AM) Glucose Level [70-110 mg/dL] 88 mg/dL (04/05/22 5:41 AM) Potassium Level [3.5-5.1 mmol/L] 3.5 mmo l/L (04/05/22 5:41 AM) Baso Absolute [0.0-0.1 x10^3/mcL] 0.0 x1 0^3/mcL (04/05/22 5:41 AM) MCV [78.0-100.0 fL] 94.1 fL (04/05/22 5:41 AM) AST [15-37 unit/L] 23 unit/L (04/05/22 5:41 AM) ALT [12-78 unit/L] 42 unit/L (04/05/22 5:41 AM) MCHC [29.0-37.5 g/dL] 35.2 g/dL (04/05/22 5:41 AM) Sodium Level [136-145 mmol/L] 142 mmol/L (04/05/22 5:41 AM) Lymph Absolute [0.8-5.8 x10^3/mcL] 1.7 x 10^3/mcL (04/05/22 5:41 AM) Hct [36.0-48.0 %] 39.8 % (04/05/22 5:41 AM) Calcium Level [8.5-10.1 mg/dL] 8.8 mg/dL (04/05/22 5:41 AM) [place] Absolute [0.1-1.5 x10^3/mcL] 0.6 x1 0^3/mcL (04/05/22 5:41 AM) Albumin Level [3.4-5.0 g/dL] 3.4 g/dL (04/05/22 5:41 AM) Protein Total [6.4-8.2 g/dL] 7.1 g/dL (04/05/22 5:41 AM) MCH [27.0-34.0 pg] 33.1 pg (04/05/22 5:41 AM) Neutro Absolute [1.5-8.1 x10^3/mcL] 5.7 x10^3/mcL (04/05/22 5:41 AM) Bilirubin Total [0.0-1.0 mg/dL] 0.5 mg/d L (04/05/22 5:41 AM) Hgb [12.0-16.0 g/dL] 14.0 g/dL (04/05/22 5:41 AM) Alk Phos [46-130 unit/L] 292 unit/L *HI* (1/17/23 5:41 AM) MPV [6.0-10.0 fL] 10.0 fL (04/05/22 5:41 AM) Platelets [150-450 K/mcL] 134 K/mcL *LOW* (04/05/22 5:41 AM) CO2 [21-32 mmol/L] 24 mmol/L (04/05/22 5:41 AM) Eos Absolute [0.0-0.5 x10^3/mcL] 0.2 x10 ^3/mcL (04/05/22 5:41 AM) GGT [5-55 unit/L] 290 unit/L *HI* (04/05/22 5:41 AM) eGFR Non-AA 51 *NA* (04/05/22 5:41 AM) eGFR AA 62 *NA* (04/05/22 5:41 AM) Chloride Level [97-107 mmol/L] 108 mmol/ L *HI* (04/05/22 5:41 AM) RDW-CV [11.5-15.0 %] 11.8 % (04/05/22 5:41 AM) Imm Gran Absolute [0.0-0.1 x10^3/mcL] 0. 0 x10^3/mcL (04/05/22 5:41 AM) Imm Gran Auto 0.2 % *NA* (04/05/22 5:41 AM) NRBC Auto 0.0 % *NA* (04/05/22 5:41 AM) NRBC Absolute [0.0-0.0 x10^3/mcL] 0.0 x1 0^3/mcL (04/05/22 5:41 AM) Creatinine Level [0.60-1.30 mg/dL] 1.24 mg/dL (04/05/22 5:41 AM) Anion Gap [5-15 mmol/L] 14 mmol/L (04/05/22 5:41 AM) Eos, Auto 2.6 % *NA* (04/05/22 5:41 AM) Social History Social History Type Response Smoking Status 5-9 cigarettes (betw een 1/4 to 1/2 pack)/day in last 30 days entered on: 05/12/21 Sex Patient Care team information Personnel Name: Hermes Ramirez MD Address: Address: [address] [place] [address], [address]
--- OUTSIDE RECORDS SUMMARY | 2024-03-20 11:41 | XMS_ITS | Continuity of Care Document ---
Author Organization [facility] Address [address] [place] [address] Care Team Providers Care Editor Book Name Role Phone Hermes Ramirez Primary Care Physician [phone] Encounter [facility] [id number] Date(s): 12/29/22 - 12/29/[address] [address] [place] Discharge Disposition: Home or [...] Tests Pending * Cyclosporine, Blood LC-MS/MS LC 12/29/22 Future Scheduled Tests Laboratory* Giardia lamblia Ag, [...] Daily, # 30 tab, 0 Refill(s), Pharmacy: [place], [place], 157, cm, 12/17/22 0:09:00 CDT, Height/Length [...] BID, # 60 cap, 0 Refill(s), Pharmacy: [place], [place], 157, cm, 12/17/22 0:09:00 CDT, Height/Length Dosing, 81, kg, 12/17/22 0:09:00 CDT, Weight Dosing Start Date: 12/22/22 Status: Ordered Pepcid 20 mg oral tablet [...] Results Laboratory List Name Date Automated Diff 12/29/22 CBC w/ Diff 12/29/22 Comprehensive Metabolic Panel 12/29/22 GGT 12/29/22 Most recent to oldest [Reference Range]: 1 WBC [4.0-11.5 K/mcL] 5.1 K/mcL (12/29/22 6:33 AM) RBC [4.20-5.40 x10^6/mcL] 4.15 x10^6/mcL *LOW* (12/29/22 6:33 AM) Neutro Auto 64.3 % *NA* (12/29/22 6:33 AM) Lymph Auto 23.0 % *NA* (12/29/22 6:33 AM) [place] Auto 8.2 % *NA* (12/29/22 6:33 AM) Basophil Auto 0.0 % *NA* (12/29/22 6:33 AM) BUN [7-18 mg/dL] 27 mg/dL *HI* (12/29/22 6:33 AM) Glucose Level [70-110 mg/dL] 103 mg/dL (12/29/22 6:33 AM) Potassium Level [3.5-5.1 mmol/L] 4.0 mmo l/L (12/29/22 6:33 AM) Baso Absolute [0.0-0.1 x10^3/mcL] 0.0 x1 0^3/mcL (12/29/22 6:33 AM) MCV [78.0-100.0 fL] 98.6 fL (12/29/22 6:33 AM) AST [15-37 unit/L] 32 unit/L (12/29/22 6:33 AM) ALT [12-78 unit/L] 54 unit/L (12/29/22 6:33 AM) MCHC [29.0-37.5 g/dL] 33.7 g/dL (12/29/22 6:33 AM) Sodium Level [136-145 mmol/L] 144 mmol/L (12/29/22 6:33 AM) Lymph Absolute [0.8-5.8 x10^3/mcL] 1.2 x 10^3/mcL (12/29/22 6:33 AM) Hct [36.0-48.0 %] 40.9 % (12/29/22 6:33 AM) Calcium Level [8.5-10.1 mg/dL] 9.2 mg/dL (12/29/22 6:33 AM) [place] Absolute [0.1-1.5 x10^3/mcL] 0.4 x1 0^3/mcL (12/29/22 6:33 AM) Albumin Level [3.4-5.0 g/dL] 3.3 g/dL *LOW* (12/29/22 6:33 AM) Protein Total [6.4-8.2 g/dL] 6.7 g/dL (12/29/22 6:33 AM) MCH [27.0-34.0 pg] 33.3 pg (12/29/22 6:33 AM) Neutro Absolute [1.5-8.1 x10^3/mcL] 3.3 x10^3/mcL (12/29/22 6:33 AM) Bilirubin Total [0.0-1.0 mg/dL] 0.6 mg/d L (12/29/22 6:33 AM) Hgb [12.0-16.0 g/dL] 13.8 g/dL (12/29/22 6:33 AM) Alk Phos [46-130 unit/L] 274 unit/L *HI* (12/29/22 6:33 AM) MPV [6.0-10.0 fL] 10.4 fL *HI* (12/29/22 6:33 AM) Platelets [150-450 K/mcL] 148 K/mcL *LOW* (12/29/22 6:33 AM) CO2 [21-32 mmol/L] 22 mmol/L (12/29/22 6:33 AM) Eos Absolute [0.0-0.5 x10^3/mcL] 0.2 x10 ^3/mcL (12/29/22 6:33 AM) GGT [5-55 unit/L] 318 unit/L *HI* (12/29/22 6:33 AM) eGFR Non-AA 35 *NA* (12/29/22 6:33 AM) eGFR AA 43 *NA* (12/29/22 6:33 AM) Chloride Level [97-107 mmol/L] 110 mmol/ L *HI* (12/29/22 6:33 AM) RDW-CV [11.5-15.0 %] 13.1 % (12/29/22 6:33 AM) Imm Gran Absolute [0.0-0.1 x10^3/mcL] 0. 0 x10^3/mcL (12/29/22 6:33 AM) Imm Gran Auto 0.2 % *NA* (12/29/22 6:33 AM) NRBC Auto 0.0 % *NA* (12/29/22 6:33 AM) NRBC Absolute [0.0-0.0 x10^3/mcL] 0.0 x1 0^3/mcL (12/29/22 6:33 AM) Slide Review Not Indicated (12/29/22 6:33 AM) Creatinine Level [0.60-1.30 mg/dL] 1.70 mg/dL 1 *HI* (12/29/22 6:33 AM) Anion Gap [5-15 mmol/L] 16 mmol/L *HI* (12/29/22 6:33 AM) Eos, Auto 4.3 % *NA* (12/29/22 6:33 AM) 1Interpretive Data: Association of GFR and [...] information Care Team Personnel Name: Jessee Jones DIAPER MACHINE TENDER Position: Physician Member Role: Nurse Practitioner Address: Address: [address] [place] [address], [facility] [address] Name: Latoya Marquez DIAPER MACHINE TENDER Position: Physician Member Role: Nurse Practitioner Address: Address: [address] [place] [address]- Name: Leonila Gonzalez DIAPER MACHINE TENDER Position: Physician Member Role: Nurse Practitioner Address: Address: [address] [place] [address] Name: Beth Brandt DIAPER MACHINE TENDER Position: Physician Member Role: Nurse Practitioner Address: Address: [address] [place] [address] Name: Hermes Ramirez MD Position: Physician Member Role: Informed Provider Address: Address: [address] [place] [address], [address] [place] [address]- Name: Pillo Moe NP Position: Physician Member Role: Nurse Practitioner Address: Address: [address] [place] [address], [address] Care Team Related Persons Name: STACIA JONES Address: Home [address] [place] [id number] Name: ROBYN JAMA
--- OUTSIDE RECORDS SUMMARY | 2024-03-20 11:41 | XMS_ITS | Continuity of Care Document ---
Author Organization [facility] Address [address] [place] [address] Care Team Providers Care Insurance Account Assistant Name Role Phone Hermes Ramirez Primary Care Physician Encounter ONOFREEver MCGRAW [id number] Date(s): 06/29/22 - 06/29/[address] [address]- [place] Encounter Diagnosis Nausea(Discharge Diagnosis) - 06/29/22 Right-sided chest wall pain(Discharge Diagnosis) - 06/29/22 Discharge Disposition: Home or Self Care Attending [...] Shoulder w/o Contrast Right 06/27/22 Functional Status 06/29/22 Other exposure to Infectious Disease Non e [...] wheezing, # 6.7 g, 0 Refill(s), Pharmacy: [place], [place], 73, cm, 09/13/21 23:53:00 CDT, Height/Length [...] needed, # 12 cap, 0 Refill(s), Pharmacy: [place], [place], 157, cm, 11/04/21 20:02:00 CDT, Height/Length [...] # 180 tab, 3 Refill(s), Pharmacy: [facility], 157.48, cm, 02/07/22 18:45:00CST, Height/Length Dosing, 72.57, kg, 02/07/22 18:45:00 AIDS SOCIAL WORKER, Weight Dosing Start Date: 02/13/22 Status: Ordered Pepcid 20 mg oral tablet 20 mg = 1 tab, Oral, BID, 0 Refill(s) Start Date: 09/29/20 Status: Ordered Phenergan 25 mg oral tablet 25 mg = 1 tab, Oral, every 6 hr, PRN as needed for nausea/vomiting, # 20 tab, 0 Refill(s), Pharmacy: [place], [place], 157, cm, 09/29/21 23:03:00 CDT, Height/Length [...] Oral [35.8-37.3 Deg C] 36.6 Deg C (06/29/22 2:39 AM) Peripheral Pulse Rate [60-100 bpm] 79 bp m (06/29/22 2:39 AM) Respiratory Rate [12-24 br/min] 16 br/mi n (06/29/22 2:39 AM) Blood Pressure [90-140/60-90 mmHg] 129/8 4mmHg (06/29/22 2:39 AM) Weight Dosing 77.00 kg (06/29/22 2:50 AM) Weight Estimated 77.00 kg (06/29/22 2:39 AM) Height/Length Dosing 157.000 cm (06/29/22 2:50 AM) Height/Length Estimated 157.000 cm (06/29/22 2:39 AM) Social History Social History Type Response Tobacco Current everyday tob acco user Tobacco Use:. Sex Hospital Discharge Instructions Patient Education 06/29/2022 03:00:50 Nausea, Adult, Thys-wn-Azmw Nausea, Adult Nausea is feeling sick to your stomach or feeling that you are about to throw up (vomit). Feeling sick to your stomach is usually not serious, but it may be an early sign of a more serious medical problem. As you feel sicker to your stomach, you may throw up. If you throw up, or if you are not able to drink enough fluids, there is a risk that you may lose too much water in your body (get dehydrated). If you lose too much water in your body, you may: ??? Feel tired. ??? Feel thirsty. ??? Have a dry mouth. ??? Have cracked lips. ??? Go pee (urinate) less often. Older adults and people who have other diseases or a weak body defense system (immune system) have a higher risk of losing too much water in the body. The main goals of treating this condition are: ??? To relieve your nausea. ??? To ensure your nausea occurs less often. ??? To prevent throwing up and losing too much fluid. Follow these instructions at home: Watch your symptoms for any changes. Tell your doctor about them. Follow these instructions as toldby your doctor. Eating and drinking ??? Take an ORS (oral rehydration solution). This is a drink that is sold at pharmacies and stores. ??? Drink clear fluids in small amounts as you are able. These include: ??? Water. ??? Ice chips. ??? Fruit juice that has water added (diluted fruit juice). ??? Low-calorie sports drinks. ??? Eat bland, yhtr-an-ahwuph foods in small amounts as you are able, such as: ??? Bananas. ??? Applesauce. ??? Rice. ??? Low-fat (lean) meats. ??? Nunn. ??? Crackers. ??? Avoid drinking fluids that have a lot of sugar or caffeine in them. This includes energy drinks, sports drinks, and soda. ??? Avoid alcohol. ??? Avoid spicy or fatty foods. General instructions ??? Take vtms-exf-pndbnjj and prescription medicines only as told by your doctor. ??? Rest at home while you get better. ??? Drink enough fluid to keep your pee (urine) pale yellow. ??? Take slow and deep breaths when you feel sick to your stomach. ??? Avoid food or things that have strong smells. ??? Wash your hands often with soap and water. If you cannot use soap and water, use hand vocational ed instructor. ??? Make sure that all people in your home wash their hands well and often. ??? Keep all follow-up visits as told by your doctor. This is important. Contact a doctor if: ??? You feel sicker to your stomach. ??? You feel sick to your stomach for more than 2 days. ??? You throw up. ??? You are not able to drink fluids without throwing up. ??? You have new symptoms. ??? You have a fever. ??? You have a headache. ??? You have muscle cramps. ??? You have a rash. ??? You have pain while peeing. ??? You feel light-headed or dizzy. Get help right away if: ??? You have pain in your chest, neck, arm, or jaw. ??? You feel very weak or you pass out (faint). ??? You have throw up that is bright red or looks like coffee grounds. ??? You have bloody or black poop (stools) or poop that looks like tar. ??? You have a very bad headache, a stiff neck, or both. ??? You have very bad pain, cramping, or bloating in your belly (abdomen). ??? You have trouble breathing or you are breathing very quickly. ??? Your heart is beating very quickly. ??? Your skin feels cold and clammy. ??? You feel confused. ??? You have signs of losing too much water in your body, such as: ??? Dark pee, very little pee, or no pee. ??? Cracked lips. ??? Dry mouth. ??? Sunken eyes. ??? Sleepiness. ??? Weakness. These symptoms may be an emergency. Do not wait to see if the symptoms will go away. Get medical help right away. Call your local emergency services (911 in the [place] Do not drive yourself to the hospital. Summary ??? Nausea is feeling sick to your stomach or feeling that you are about to throw up (vomit). ??? If you throw up, or if you are not able to drink enough fluids, there is a risk that you may lose too much water in your body (get dehydrated). ??? Eat and drink what your doctor tells you. Take auur-kkr-cfakxcl and prescription medicines onlyas told by your doctor. ??? Contact a doctor right away if your symptoms get worse or you have new symptoms. ??? Keep all follow-up visits as told by your doctor. This is important. This information is not intended to replace advice given to you by your health care provider. Make sure you discuss any questions you have with your health care provider. Document Revised: 05/26/2021 Document Reviewed: 08/14/2018 [employer] Patient Education ?? 2021 [employer] 06/29/2022 03:00:44 Chest Wall Pain, Qmgh-fh-Bpnr Chest Wall Pain Chest wall pain is pain in or around the bones and muscles of your chest. Chest wall pain may be caused by: ??? An injury. ??? Coughing a lot. ??? Using your chest and arm muscles too much. Sometimes, the cause may not be known. This pain may take a few weeks or longer to get better. Follow these instructions at home: Managing pain, stiffness, and swelling If told, put ice on the painful area: ??? Put ice in a plastic bag. ??? Place a towel between your skin and the bag. ??? Leave the ice on for 20 minutes, 2???3 times a day. Activity ??? Rest as told by your doctor. ??? Avoid doing things that cause pain. This includes lifting heavy items. ??? Ask your doctor what activities are safe for you. General instructions ??? Take emdh-gzo-ocseggs and prescription medicines only as told by your doctor. ??? Do not use any products that contain nicotine or tobacco, such as cigarettes, e-cigarettes, andchewing tobacco. If you need help quitting, ask your doctor. ??? Keep all follow-up visits as told by your doctor. This is important. Contact a doctor if: ??? You have a fever. ??? Your chest pain gets worse. ??? You have new symptoms. Get help right away if: ??? You feel sick to your stomach (nauseous) or you throw up (vomit). ??? You feel sweaty or light-headed. ??? You have a cough with mucus from your lungs (sputum) or you cough up blood. ??? You are short of breath. These symptoms may be an emergency. Do not wait to see if the symptoms will go away. Get medical help right away. Call your local emergency services (911 in the [place] Do not drive yourself to the hospital. Summary ??? Chest wall pain is pain in or around the bones and muscles of your chest. ??? It may be treated with ice, rest, and medicines. Your condition may also get better if you avoid doing things that cause pain. ??? Contact a doctor if you have a fever, chest pain that gets worse, or new symptoms. ??? Get help right away if you feel light-headed or you get short of breath. These symptoms may be an emergency. This information is not intended to replace advice given to you by your health care provider. Make sure you discuss any questions you have with your health care provider. Document Revised: 06/08/2021 Document Reviewed: 05/21/2021 [employer] Patient Education ?? 2021 [employer]. Follow Up Care 06/29/2022 02:45:24 With:Follow up with primary care provider Address: When:1 week Comments:Continue other home medications.?? Return to ED if symptoms worsen. Physician Emergency department Note * Jesus Khan MD: PERFORM Event Display: ED Note Physician Authored Date: [id number] MISHA JACKSON :1980 Age:41 years Sex:Female Visit Date:06/29/2022 Primary Care Physician: Hermes Ramirez MD Basic Information Time Seen: Jesus Khan MD / 06/29/2022 02:51 Chief Complaint Pt arrives with c/o R upper side pain and HARRIS starting yesterday. ??States nausea and R eye blurry vision as well. ??Pt took tyl at home. History Of Present Illness: Patient??comes in complaining of??right??lateral aspect chest wall area??along the mid axillary line. ??States this started yesterday.?? Pain is intermittent, sharp.?? Also has been experiencing somenausea.?? No??shortness of breath.?? Patient also is??noticed some swelling in both ankles; states she has been taking??steroids for??an upper respiratory infection. Review of Systems: Constitutional:?No??fevers,?No??chills,?No??sweats Eye:?No??recent visual problems ENT:?No??ear pain,?No??nasal congestion,?No??sore throat Respiratory:?No??shortness of breath,?No??cough Cardiovascular:?Positive for??Chest pain,??lateral aspect of chest wall??area along the mid axillary line. ??No??palpitations,?No??syncope Gastrointestinal:?Positive fornausea,?No??vomiting,?No??diarrhea Genitourinary:?No??hematuria Clemente/Lymph:?No??bruising tendency,?No??swollen lymph glands Endocrine:?No??excessive thirst,??No??excessive hunger Musculoskeletal:??No??back pain,??No??neck pain,??No??joint pain,??No??muscle pain,??No??decreased range of motion Integumentary:?No??rash,?No??pruritus,?No??abrasions Neurologic: Alert & oriented X 4 Psychiatric:?No??anxiety,?No??depression Physical Exam Vitals & Measurements T:??36.6?C ??(Oral)?? HR:??79??(Peripheral)?? RR:??16?? BP:??129/84?? SpO2:??97%?? HT:??157.000??cm?? WT:??77.00??kg??(Estimated)?? Pain Score:??7?? O2 Therapy:??Room air?? General: Alert [...] Medical Decision Making: Phenergan 25 mg IM.?? Morphine sulfate 2 mg IM.?? Benadryl 50 mg IM. Procedure No Qualifying Data Assessment/Plan 1.??Nausea??R11.0 2.??Right-sided chest wall pain??R07.89 Orders: morphine, 2 mg = 1 mL, IM, Injection, Once, First Dose: 06/29/22 2:52:00 CDT, Stop Date: 06/29/22 2:52:00 CDT, Physician Stop Phenergan, 25 mg = 1 mL, IM, Injection, Once, First Dose: 06/29/22 2:52:00 CDT, Stop Date: 232:52:00 CDT, Physician Stop Right??chest wall??pain area along??mid axillary line.?? Nausea. ??Follow-up with PCP. ??Continue other home medications. Patient Discharge Condition Good Discharge Disposition Discharge home Patient Education Nausea, Adult, Vdvv-ss-Eizn Chest Wall Pain, Hjoi-ja-Gqxh Follow Up With When Contact Information Follow up with primary care provider Within 1 week Additional Instructions: Continue other home medications.?? Return [...] removal from breast???Hernia???liver transplant Medication Administration Given morphine, 2 mg, IM Phenergan, 25 mg, IM Allergies NSAIDs Toradol??(Kidney failure as a complication of care) aspirin??(Medication interaction) azithromycin??(Unknown) codeine??(Unknown, Itching) gentamicin erythromycin??(Medication interaction) Social History Alcohol Never Electronic Cigarette/Vaping Electronic Cigarette Use: Never. Substance Use Never Tobacco Current everyday tobacco user Tobacco Use:. Family History Cancer: Mother. Attending Attestation Follow-up with PCP Electronically Signed on 06/29/22 03:01 AM Jesus Khan MD Patient Care team information Care Team Personnel Name: Jessee Jones NP Position: Physician Member Role: Nurse Practitioner Address: Address: [address] [place] [address], [address] Name: Anklam, Latoya DATASTAGE ARCHITECT Position: Physician Member Role: Nurse Practitioner Address: Address: [address] [place] [address]- [place] Name: Leonila Gonzalez DATASTAGE ARCHITECT Position: Physician Member Role: Nurse Practitioner Address: Address: [address] [place] [address]- [place] Name: Beth Brandt DATASTAGE ARCHITECT Position: Physician Member Role: Nurse Practitioner Address: Address: [address] [place], [place] [id number] Name: Hermes Ramirez MD Position: Physician Member Role: Informed Provider Address: Address: [address] [place] [address], [address] [place] [address]- [place] Name: Pillo Moe DATASTAGE ARCHITECT Position: Physician Member Role: Nurse Practitioner Address: Address: [address] [place] [address], [address] [facility] Name: Jesus Khan MD Position: Physician Member Role: Informed Provider Address: Address: [address] [place], [place] [address] [address]- Name: Kaci Combs RN Position: Nurse Member Role: Registered Nurse Care Team Related Persons Name: STACIA JONES Address: Home [address] [place], [place] [id number] Name: ROBYN JAMA Address: Home
--- OUTSIDE RECORDS SUMMARY | 2024-03-20 11:41 | XMS_ITS | Continuity of Care Document ---
Author Organization [facility] Address [address] [place] [address] Care Team Providers Care Meat Team Member Name Role Phone Vijaynixon Hermes Chris Primary Care Physician [phone] Encounter ONORFE MCGRAW [id number] Date(s): 07/23/23 - 07/23/[address] [address] [place] Discharge Disposition: Left Against Medical Advice [...] # 30 tab, 11 Refill(s), Pharmacy: [facility] [place], [place], 157.48, cm, 01/04/23 15:03:00 CDT, Height/Length [...] 0 Refill(s), 07/26/23 6:12:00 PM CDT, Pharmacy: [id number], 157.48, cm, 07/19/23 17:49:00 CDT, Height, 81.65, [...] BID, # 60 cap, 11 Refill(s), [facility] [place], 157.48, cm, 01/04/23 15:03:00 CDT, Height/Length Dosing, 81.65, kg, 01/04/23 15:03:00 CDT, Weight Dosing Start Date: 01/11/23 Status: Ordered pantoprazole 40 mg oral delayed release tablet 1 tab, Oral, Daily, # 90 tab, 0 Refill(s), Pharmacy: [id number], 157.48, cm, 06/07/23 16:07:00 CDT, Height, 89.36, [...] QID, # 360 tab, 0 Refill(s), Pharmacy: [id number], 157.48, cm, 06/07/23 16:07:00 CDT, Height, 89.36, [...] [35.8-37.3 Deg C] 37.4 Deg C *HI* (07/23/23 5:59 PM) Peripheral Pulse Rate [60-100 bpm] 72 bp m (07/23/23 5:59 PM) Respiratory Rate [12-24 br/min] 18 br/mi n (07/23/23 5:59 PM) Blood Pressure [90-140/60-90 mmHg] 142/8 6mmHg *HI* (07/23/23 5:59 PM) Mean Arterial Pressure, Cuff [65-140 mmH g] 105 mmHg (07/23/23 5:59 PM) Weight 81.65 kg (07/23/23 5:59 PM) Weight Dosing 81.650 kg (07/23/23 5:59 PM) Height 157.48 cm (07/23/23 5:59 PM) Body Mass Index 32.92 kg/m2 (07/23/23 5:59 PM) Social History Social History Type Response Tobacco Current everyday tob acco user Tobacco Use:. 1 Sex 1Pt states that she smokes half a pack a day. Patient Care team information Care Team Personnel Name: Jessee Jones ANTIQUE CLOCK REPAIRER Position: Physician Member Role: Nurse Practitioner Address: Address: [address] [place] [address], [address] Name: Latoya Marquez ANTIQUE CLOCK REPAIRER Position: Physician Member Role: Nurse Practitioner Address: Address: [address] [place] [address]- Name: Leonila Gonzalez ANTIQUE CLOCK REPAIRER Position: Physician Member Role: Nurse Practitioner Address: Address: [address] [place] [address]- Name: Beth Brandt ANTIQUE CLOCK REPAIRER Position: Physician Member Role: Nurse Practitioner Address: Address: [address] [place] [address] Name: Hermes Ramirez MD Position: Physician Member Role: Informed Provider Address: Address: [address] [place] [address], [address] Name: Pillo Moe ANTIQUE CLOCK REPAIRER Position: Physician Member Role: Nurse Practitioner Address: Address: [address] [place] [address], [address] [facility] Care Team Related Persons Name: STACIA JONES Address: Home [address] [id number] Name: MADY CHEN Name: MADY CHEN
--- OUTSIDE RECORDS SUMMARY | 2024-03-20 11:41 | XMS_ITS | Continuity of Care Document ---
Author Organization [facility] Address [address] [place] [address]- Care Team Providers Care Plate Cutter Name Role Phone Hermes Ramirez Primary Care Physician Encounter RANDY MCGRAW [id number] Date(s): 08/25/23 - 08/25/23 [facility] [address], [place] [address] Discharge Disposition: Home Allergies, Adverse Reactions, Alerts Substance Reaction Severity Status codeine Unknown Itching Severe Active gentamicin Moderate Active erythromycin Medication interaction Activ e azithromycin Unknown Severe Active aspirin Medication interaction Severe Activ e morphine 1 redness Itching Mild Active Toradol Kidney failure as a complication of care Severe Active NSAIDs Severe Active 1localized reaction at iv site Assessment and Plan Future Appointments Immunizations Given [...] Daily, # 30 tab, 11 Refill(s), Pharmacy: [facility] [place], [place], 157.48, cm, 01/04/23 15:03:00 CDT, Height/Length Dosing, 81.65, kg, 01/04/23 15:03:00 CDT, Weight Dosing Start Date: 01/11/23 Status: Ordered aspirin 81 mg oral delayed release tablet 81 mg = 1 tab, Oral, Daily, # 30 tab, 0 Refill(s) Start Date: 04/05/21 Status: Ordered gabapentin 300 mg oral capsule 600 mg = 2 cap, Oral, BID, # 120 cap, 2 Refill(s), Pharmacy: [id number], 157.48, cm, 07/23/23 17:59:00 CDT, Height, [...] BID, # 60 cap, 11 Refill(s), [place] [facility], cm, 01/04/23 15:03:00 CDT, Height/Length Dosing, 81.65, kg, 01/04/23 15:03:00 CDT, Weight Dosing Start Date: 01/11/23 Status: Ordered pantoprazole 40 mg oral delayed release tablet 1 tab, Oral, Daily, # 90 tab, 0 Refill(s), Pharmacy: [id number], 157.48, cm, 06/07/23 16:07:00 CDT, Height, 89.36, [...] QID, # 360 tab, 0 Refill(s), Pharmacy: [id number], 157.48, cm, 06/07/23 16:07:00 CDT, Height, 89.36, [...] information Care Team Personnel Name: Jessee Jones COUTURE ALTERATIONS DRESSMAKER Position: Physician Member Role: Nurse Practitioner Address: Address: [address] [facility], [address] [place] [address]- Name: Latoya Marquez COUTURE ALTERATIONS DRESSMAKER Position: Physician Member Role: Nurse Practitioner Address: Address: [address] [place] [address]- Name: Leonila Gonzalez COUTURE ALTERATIONS DRESSMAKER Position: Physician Member Role: Nurse Practitioner Address: Address: [address] [place] [address]- Name: Beth Brandt COUTURE ALTERATIONS DRESSMAKER Position: Physician Member Role: Nurse Practitioner Address: Address: [address] Name: Hermes Ramirez MD Position: Physician Member Role: Informed Provider Address: Address: [address] [facility], [address] [place] [address]- Name: Pillo Moe COUTURE ALTERATIONS DRESSMAKER Position: Physician Member Role: Nurse Practitioner Address: Address: [address] [facility], [address] [facility] Care Team Related Persons Name: STACIA JONES Address: Home [address] [phone] Name: ROBYN JAMA Name: MADY CHEN Name: MADY CHEN
--- OUTSIDE RECORDS SUMMARY | 2024-03-20 11:41 | XMS_ITS | Continuity of Care Document ---
Author Organization [facility] Address [address] [place] [address] Care Team Providers Care Radar Operator Name Role Phone Hermes Ramirez Primary Care Physician [phone] Encounter ONOFREEver MCGRAW [id number] Date(s): 04/02/23 - 04/02/[address] [address]- [place] Encounter Diagnosis Acute migraine(Discharge Diagnosis) - 04/02/23 Discharge Disposition: Home or Self Care Attending [...] Daily, # 30 tab, 11 Refill(s), Pharmacy: [place], [place], 157.48, cm, 01/04/23 15:03:00 CDT, Height/Length [...] BID, # 60 cap, 11 Refill(s), Pharmacy: [place], [place], 157.48, cm, 01/04/23 15:03:00 CDT, Height/Length [...] ed Tx - Liver transplantation 2/19/21 Completed Mammogram 2 2020 Completed delivery Complet ed cyst removal from breast Completed Hernia Completed liver transplant Complete d 1normal 2normal Vital Signs Most recent to oldest [Reference Range]: 1 Temperature Oral [35.8-37.3 Deg C] 36.9 Deg C (04/02/23 2:24 PM) Peripheral Pulse Rate [60-100 bpm] 82 bp m (04/02/23 2:24 PM) Respiratory Rate [12-24 br/min] 18 br/mi n (04/02/23 2:24 PM) Blood Pressure [90-140/60-90 mmHg] 162/9 1mmHg *HI* (04/02/23 2:24 PM) Mean Arterial Pressure, Cuff [70-110 mmH g] 115 mmHg *HI* (04/02/23 2:24 PM) Weight 81.65 kg (04/02/23 2:24 PM) Weight Dosing 81.650 kg (04/02/23 2:24 PM) Height 157.48 cm (04/02/23 2:24 PM) Body Mass Index 32.92 kg/m2 (04/02/23 2:24 PM) Social History Social History Type Response Tobacco Current everyday tob acco user Tobacco Use:. 1 Sex 1Pt states that she smokes half a pack a day. Hospital Discharge Instructions Patient Education 04/02/2023 14:48:54 Migraine Headache Migraine Headache A migraine headache [...] these instructions at home: Medicines ??? Take datn-lxq-uuhmtto and prescription medicines only as told by your health care provider. ??? Ask your health care provider if the medicine prescribed to you: ??? Requires you to avoid driving or using heavy machinery. ??? Can cause constipation. You may need to take these actions to prevent or treat constipation: ??? Drink enough fluid to keep your urine pale yellow. ??? Take xmwm-nbv-quqaxsc or prescription medicines. ??? Eat foods that [...] provider. Document Revised: 06/28/2019 Document Reviewed: 04/18/2019 [employer] Patient Education ?? 2022 [employer]. Follow Up Care 04/02/2023 14:24:28 With:Follow up with primary care provider Address:Unknown When:1 to 2 days Physician Emergency department Note * Andrew Francis DO: MODIFY, PERFORM Event Display: ED Note Physician Authored Date: [id number] MISHA JACKSON :1980 Age:42 years Sex:Female Visit Date:04/02/2023 Primary Care Physician: Hermes Ramirez MD Basic Information Time Seen: Andrew Francis DO / 04/02/2023 14:37 History Of Present Illness: Planes of right sided throbbing type??migraine headache states??the pattern is normal for her??withher headaches??started this morning and no relief with Tylenol??states she cannot take NSAIDs because she has had a liver transplant Review of Systems: Constitutional:?No??fevers,?No??chills,?No??sweats Eye:?No??recent visual problems ENT:?No??ear pain,?No??nasal congestion,?No??sore throat Respiratory:?No??shortness of breath,?No??cough Cardiovascular:?No??Chest pain,?No??palpitations,?No??syncope Gastrointestinal:?Nonausea,?No??vomiting,?No??diarrhea Genitourinary:?No??hematuria Clemente/Lymph:?No??bruising tendency,?No??swollen lymph glands Endocrine:?No??excessive thirst,??No??excessive hunger Musculoskeletal:??No??back pain,??No??neck pain,??No??joint pain,??No??muscle pain,??No??decreased range of motion Integumentary:?No??rash,?No??pruritus,?No??abrasions Neurologic: Alert & oriented X 4 c/o headache Psychiatric:?No??anxiety,?No??depression Physical Exam Vitals & Measurements T:??36.9?C ??(Oral)?? HR:??82??(Peripheral)?? RR:??18?? BP:??162/91?? SpO2:??100%?? HT:??157.48??cm?? WT:??81.65??kg?? BMI:??32.92?? Pain Score:??8?? O2 Therapy:??Room [...] Awake, alert and oriented X4, CN II-XII intact.?? Some mild photophobia Psychiatric: Cooperative, appropriate mood and affect. Procedure No Qualifying Data Reexamination/Reevaluation headache better Assessment/Plan Acute migraine??G43.909 Orders: Benadryl, 25 mg = 0.5 mL, Intramuscular, Injection, Once, First Dose: 04/02/23 14:43:00 LAST SCOURER, Stop Date: 04/02/23 14:43:00 LAST SCOURER, Physician Stop, NOW morphine, 4 mg = 1 mL, Intramuscular, Injection, Once, First Dose: 04/02/23 14:43:00 LAST SCOURER, Stop Date: 04/02/23 14:43:00 LAST SCOURER, Physician Stop, NOW Patient Discharge Condition good Discharge Disposition home [...] Liver transplantation (05/08/2020)???Mammogram (2020)??? delivery???cyst removal from [place]???Hernia???liver transplant Allergies NSAIDs Toradol??(Kidney failure as a complication of care) aspirin??(Medication interaction) azithromycin??(Unknown) codeine??(Unknown, Itching) gentamicin morphine??(redness, Itching) erythromycin??(Medication interaction) Social History Alcohol Never Electronic Cigarette/Vaping Electronic Cigarette Use: Never. Substance Use Never Tobacco Current everyday tobacco user Tobacco Use:.- Comments: Pt states that she smokes half a pack a day. Family History Cancer: Mother. Electronically Signed on 04/02/23 03:25 PM Andrew Francis DO Patient Care team information Care Team Personnel Name: Jessee Jones ITEM PROCESSING CLERK Position: Physician Member Role: Nurse Practitioner Address: Address: [address] [place] [address], [address] [place] [address]- Name: Latoya Marquez ITEM PROCESSING CLERK Position: Physician Member Role: Nurse Practitioner Address: Address: [address] [place] [address]- Name: Leonila Gonzalez ITEM PROCESSING CLERK Position: Physician Member Role: Nurse Practitioner Address: Address: [address] [place] [address]- Name: Beth Brandt ITEM PROCESSING CLERK Position: Physician Member Role: Nurse Practitioner Address: Address: [address] [place] [address] Name: Hermes Ramirez MD Position: Physician Member Role: Primary Care Physician Address: Address: [address] [place] [address], [address] [place] [address]- Name: Anamika Gore MD Position: Physician - Women's Health Member Role: Informed Provider Name: Pillo Moe ITEM PROCESSING CLERK Position: Physician Member Role: Nurse Practitioner Address: Address: [address] [place] [address], [address] [facility] Name: Chaya Wei RN Position: Nurse Member Role: ED Nurse Name: Andrew Francis DO Position: Physician Member Role: Admitting Physician Care Team Related Persons Name: STACIA JONES Address: [address] [id number] Name: ROBYN JAMA
--- OUTSIDE RECORDS SUMMARY | 2024-03-20 11:41 | XMS_ITS | Continuity of Care Document ---
Author Organization [facility] Address [address] [place] [address] Care Team Providers Care Traveling Representative Name Role Phone Hermes Ramirez Primary Care Physician Encounter ONOFRE MCGRAW [id number] Date(s): 05/17/21 - 05/17/[address] [address] Encounter Diagnosis Intractable migraine(Discharge Diagnosis) - 05/17/21 Discharge Disposition: Home or Self Care Attending Physician: Felicia Roach MD Admitting Physician: Felicia Roach MD Allergies, Adverse Reactions, Alerts Substance Reaction Severity Status gentamicin Moderate Active erythromycin Medication interaction Activ e aspirin Medication interaction Activ e Toradol Kidney failure as a complication of care Active NSAIDs Severe Active Assessment and Plan Future Appointments Future Scheduled Tests Radiology* MRI Abdomen w/ + w/o Contrast 05/21/21 Functional Status 05/17/21 Recent Travel History No recent travel Other [...] BID, # 180 tab, 3 Refill(s), Pharmacy: [place], [place], 157, cm, 10/22/20 21:26:00 CDT, Height/Length Dosing, 74, kg, 10/22/20 21:26:00 CDT, Weight Dosing Start Date: 12/18/20 Status: Ordered morphine 4 mg/mL preservative-free injectable solution 4 mg = 1 mL, IM, Once, 0 Refill(s) Start Date: 05/14/21 Status: Ordered Pepcid 20 mg oral tablet 20 mg = 1 tab, Oral, BID, 0 Refill(s) Start Date: 09/29/20 Status: Ordered tacrolimus 1 mg oral capsule, extended release 3 mg = 3 cap, Oral, Daily, 0 Refill(s) Start Date: 09/29/20 Status: Ordered Topamax 25 mg oral tablet 25 mg = 1 tab, Oral, Daily, 0 Refill(s) Start Date: 05/17/21 Status: Ordered [...] Oral [35.8-37.3 Deg C] 36.7 Deg C (05/17/21 12:45 PM) Peripheral Pulse Rate [60-100 bpm] 99 bp m (05/17/21 12:45 PM) Respiratory Rate [12-24 br/min] 18 br/mi n (05/17/21 12:45 PM) Blood Pressure [90-140/60-90 mmHg] 145/8 6mmHg *HI* (05/17/21 12:45 PM) Weight Dosing 77.11 kg (05/17/21 1:11 PM) Weight Estimated 77.11 kg (05/17/21 12:45 PM) Height/Length Dosing 157.480 cm (05/17/21 1:11 PM) Body Mass Index Estimated 31 (05/17/21 12:45 PM) Height/Length Estimated 157.480 cm (05/17/21 12:45 PM) Social History Social History Type Response Smoking Status 5-9 cigarettes (betw een 1/4 to 1/2 pack)/day in last 30 days entered on: 05/12/21 Sex Hospital Discharge Instructions Patient Education 05/17/2021 13:50:06 Migraine Headache, Upmo-xz-Augg Migraine Headache A migraine headache is a [...] these instructions at home: Medicines ??? Take rxua-onc-wwlmvmm and prescription medicines only as told by your doctor. ??? Ask your doctor if the medicine prescribed to you: ??? Requires you to avoid driving or using heavy machinery. ??? Can cause trouble pooping (constipation). You may need to take these steps to prevent or treat trouble pooping: ??? Drink enough fluid to keep your pee (urine) pale yellow. ??? Take dzoo-ujw-iwkabpq or prescription medicines. ??? Eat foods that [...] Reviewed: 04/18/2019 [employer] Patient Education ?? 2020 [employer] Care Team Personnel Name: Hermes Ramirez MD Address[facility], [address] [place] [address]-
--- OUTSIDE RECORDS SUMMARY | 2024-03-20 11:41 | XMS_ITS | Continuity of Care Document ---
Author Organization [facility] Address [address] [place] [address]- Care Team Providers Care Cattle Farmer Name Role Phone Hermes Ramirez Primary Care Physician Encounter ONOFRE MCGRAW [id number] Date(s): 08/29/23 - 08/29/23 [facility] [address] [place] [address]- Encounter Diagnosis Pulmonary nodules(Discharge Diagnosis) - 08/29/23 Discharge Disposition: Home or Self Care Attending [...] from: Title:Office Visit Note Author:Philip Ramirez MD Date:08/29/23 Depression Screen?? PHQ 2?? PHQ 9?? Little Interest - Pleasure in Activities: Nearly every day Trouble Falling or Staying Asleep: Nearly every day Feeling Down, Depressed, Hopeless: Nearly every day Feeling Tired or Little Energy: Nearly every day Initial Depression Screen Score: 6 Score Poor Appetite or Overeating: Nearly every day ?? Feeling Bad About Yourself: Nearly every day ?? Trouble Concentrating: Nearly every day ?? Moving or Speaking Slowly: Not at all ?? Thoughts Better Off or Hurting Self: More than half the days ?? Detailed Depression Screen Score: 17 ?? Total Depression Screen Score: 23 Assessment/Plan 1.??Pulmonary nodules??R91.8 ??New nodule since CT scan in February 2023. ??Will update CT scan??now.?? Will try Nicotrol inhaler??to quit smoking. Ordered: CT Chest w/o Contrast, 08/29/23, Routine, Reason: pulm nodules, Transport Mode: Ambulatory, Pulmonary nodules ?? Orders: Nicotrol Inhaler 10 mg inhalation device, See Instructions, 6-16 cartriges/day, # 1 EA, 2 Refill(s), Pharmacy: [id number], 157.48, cm, 08/29/23 14:22:00 CDT, Height, 88, kg, 08/29/23 14:27:00 CDT, Weight Dosing venlafaxine 37.5 mg oral capsule, extended release, 37.5 mg = 1 cap, Oral, Daily, # 90 cap, 0 Refill(s), [facility]acy: [id number], 157.48, cm, 08/29/23 14:22:00 CDT, Height, 88, kg, 08/29/23 14:27:00 CDT, Weight Dosing MG Mammo Diagnostic Bilateral w/ Chad, *Est. 02/23/24 +/- 245 days, Routine, Reason: 1 year follow up, Transport Mode: Ambulatory, Abnormal finding on mammography US Breast Limited Left, *Est. 02/23/24 +/- 245 days, Routine, Reason: 1 year follow up, Transport Mode: Ambulatory, Abnormal finding on mammography, ABN Status: Not Required Future Appointments Future Scheduled Tests Radiology* CT Chest w/o Contrast 08/29/23 * MG Mammo Diagnostic Bilateral w/ Chad [...] Daily, # 30 tab, 11 Refill(s), Pharmacy: [place], [place], 157.48, cm, 01/04/23 15:03:00 CDT, Height/Length Dosing, 81.65, kg, 01/04/23 15:03:00 CDT, Weight Dosing Start Date: 01/11/23 Status: Ordered aspirin 81 mg oral delayed release tablet 81 mg = 1 tab, Oral, Daily, # 30 tab, 0 Refill(s) Start Date: 04/05/21 Status: Ordered gabapentin 300 mg oral capsule 600 mg = 2 cap, Oral, BID, # 120 cap, 2 Refill(s), Pharmacy: [id number], 157.48, cm, 07/23/23 17:59:00 CDT, Height, 88.45, [...] BID, # 60 cap, 11 Refill(s), Pharmacy: [place], [place], 157.48, cm, 01/04/23 15:03:00 CDT, Height/Length Dosing, 81.65, kg, 01/04/23 15:03:00 CDT, Weight Dosing Start Date: 01/11/23 Status: Ordered Nicotrol Inhaler 10 mg inhalation device See Instructions, 6-16 cartriges/day, # 1 EA, 2 Refill(s), Pharmacy: [id number], 157.48, cm, 08/29/23 14:22:00 CDT, Height, 88, kg, 08/29/23 14:27:00 CDT, Weight Dosing Start Date: 08/29/23 Status: Ordered pantoprazole 40 mg oral delayed release tablet 1 tab, Oral, Daily, # 90 tab, 0 Refill(s), [facility]acy: [id number], 157.48, cm, 06/07/23 16:07:00 CDT, Height, 89.36, [...] QID, # 360 tab, 0 Refill(s), Pharmacy: [id number], 157.48, cm, 06/07/23 16:07:00 CDT, Height, 89.36, kg, 06/19/23 15:32:00 CDT, Weight Dosing Start Date: 06/20/23 Status: Ordered venlafaxine 37.5 mg oral capsule, extended release 37.5 mg = 1 cap, Oral, Daily, # 90 cap, 0 Refill(s), Pharmacy: [id number][facility] [place], 157.48, cm, 08/29/23 14:22:00 CDT, Height, 88, [...] 1 Temperature Tympanic [36.6-38.1 Deg C] 3 5.4 Deg C *LOW* (08/29/23 2:22 PM) Peripheral Pulse Rate [60-100 bpm] 87 bp m (08/29/23 2:22 PM) Respiratory Rate [12-24 br/min] 18 br/mi n (08/29/23 2:22 PM) Blood Pressure [90-140/60-90 mmHg] 132/7 4mmHg (08/29/23 2:22 PM) Mean Arterial Pressure, Cuff [65-140 mmH g] 93 mmHg (08/29/23 2:22 PM) Weight 88 kg (08/29/23 2:22 PM) Weight Measured (lbs) 194.007 lb (08/29/23 2:22 PM) Weight Dosing 88.000 kg (08/29/23 2:22 PM) Height 157.48 cm (08/29/23 2:22 PM) Height/Length Measured (inches) 62 inch (08/29/23 2:22 PM) BSA Measured 1.96 m2 (08/29/23 2:22 PM) Body Mass Index 35.48 kg/m2 (08/29/23 2:22 PM) Social History Social History Type Response Tobacco Current everyday tob acco user Tobacco Use:. 1 Sex 1Pt states that she smokes half a pack a day. Physician Outpatient Note * Hermes Ramirez MD: PERFORM Event Display: Office Clinic Note Physician Authored Date: [id number] MISHA JACKSON :1980 Age:42 years Sex:Female Visit Date:08/29/2023 Primary Care Physician: Hermes Ramirez MD Chief Complaint Pt here for ED Follow up. Pt was in [facility] ED last week and they told her she had a nodule in her lungshowed on CXR. Pt states she has been without her effexor for a few weeks and cant get ahold of herpsych doctor History of Present Illness MISHA JACKSON??is a??42 Years??old??Female??presenting today with??Chief Complaint: Pt here for ED Follow up. Pt was in [facility] ED last week and they told her she had a nodule in her lung showed on CXR. Pt states she has been without her effexor for a few weeks and cant get ahold of her psych doctor (08/29/23 14:22:00).?? Chest x-ray??report reviewed with patient. ??She is a smoker.?? She had CTscan of the chest??in and February that did not show nodule. Review of Systems Constitutional:?No??fevers Respiratory:?No??shortness of breath Cardiovascular:?No??Chest pain Gastrointestinal:?No??abd pain Physical Exam Vitals & Measurements T:??35.4?C ??(Tympanic)?? HR:??87??(Peripheral)?? RR:??18?? BP:??132/74?? SpO2:??98%?? HT:??157.48??cm?? WT:??88??kg?? BMI:??35.48?? Pain Score:??7?? BSA:??1.96?? General: Alert and oriented, well nourished,?No??acute distress Lungs: Clear to auscultation,?Non-labored?? respiration Heart:?Normal? rate,?Regular??rhythm,?No??murmur,?No??gallop Depression Screen?? PHQ 2?? PHQ 9?? Little Interest - Pleasure in Activities: Nearly every day Trouble Falling or Staying Asleep: Nearly every day Feeling Down, Depressed, Hopeless: Nearly every day Feeling Tired or Little Energy: Nearly every day Initial Depression Screen Score: 6 Score Poor Appetite or Overeating: Nearly every day ?? Feeling Bad About Yourself: Nearly every day ?? Trouble Concentrating: Nearly every day ?? Moving or Speaking Slowly: Not at all ?? Thoughts Better Off or Hurting Self: More than half the days ?? Detailed Depression Screen Score: 17 ?? Total Depression Screen Score: 23 Assessment/Plan 1.??Pulmonary nodules??R91.8 ??New nodule since CT scan in February 2023. ??Will update CT scan??now.?? Will try Nicotrol inhaler??to quit smoking. Ordered: CT Chest w/o Contrast, 08/29/23, Routine, Reason: pulm nodules, Transport Mode: Ambulatory, Pulmonary nodules ?? Orders: Nicotrol Inhaler 10 mg inhalation device, See Instructions, 6-16 cartriges/day, # 1 EA, 2 Refill(s), Pharmacy: [id number], 157.48, cm, 08/29/23 14:22:00 CDT, Height, 88, kg, 08/29/23 14:27:00 CDT, Weight Dosing venlafaxine 37.5 mg oral capsule, extended release, 37.5 mg = 1 cap, Oral, Daily, # 90 cap, 0 Refill(s), Pharmacy: [id number], 157.48, cm, 08/29/23 14:22:00 CDT, Height, 88, kg, 08/29/23 14:27:00 CDT, Weight Dosing MG Mammo Diagnostic Bilateral w/ Chad, *Est. 02/23/24 +/- 245 days, Routine, Reason: 1 year follow up, Transport Mode: Ambulatory, Abnormal finding on mammography US Breast Limited Left, *Est. 02/23/24 +/- 245 days, Routine, Reason: 1 year follow up, Transport Mode: Ambulatory, Abnormal finding on mammography, ABN Status: Not Required Future Orders CT Chest w/o Contrast, 08/29/23, Routine, Reason: pulm nodules, Transport Mode: Ambulatory, Pulmonary nodules Problem List/Past Medical History Ongoing Acne Anxiety [...] (Tdap) adult/adol 05/25/2012 Recorded Electronically Signed on 08/29/2023 14:44 CDT Hermes Ramirez MD Patient Care team information Care Team Personnel Name: Jessee Jones COIL WINDER STRAP Position: Physician Member Role: Nurse Practitioner Address: Address: [address] [facility] [address] [place] [address]- Name: Latoya Marquez COIL WINDER STRAP Position: Physician Member Role: Nurse Practitioner Address: Address: [address] [id number]- Name: Leonila Gonzalez COIL WINDER STRAP Position: Physician Member Role: Nurse Practitioner Address: Address: [address] [place] [address]- Name: Beth Brandt COIL WINDER STRAP Position: Physician Member Role: Nurse Practitioner Address: Address: [address] Name: Hermes Ramirez MD Position: Physician Member Role: Informed Provider Address: Address: [address] [facility] [place] [address]- Name: Pillo Moe COIL WINDER STRAP Position: Physician Member Role: Nurse Practitioner Address: Address: [address] [facility] [facility] Care Team Related Persons Name: STACIA JONES Address: Home [address] [id number] Name: ROBYN JAMA Address: Home Name: NAIF CHOI Address: Home Name: MADY CHEN Name: MADY CHEN
--- OUTSIDE RECORDS SUMMARY | 2024-03-20 11:41 | XMS_ITS | Continuity of Care Document ---
Author Organization [facility] Address [address] [place] [address] Care Team Providers Care Stone Rubber Name Role Phone Hermes Ramirez Primary Care Physician Encounter ONOFRE MCGRAW [id number] Date(s): 02/24/23 - 02/24/23 [address] [address] [place] [address]- [place] Discharge Disposition: Home or [...] Daily, # 30 tab, 11 Refill(s), Pharmacy: [place], [place], 157.48, cm, 01/04/23 15:03:00 CDT, Height/Length [...] BID, # 60 cap, 11 Refill(s), Pharmacy: [place], [place], 157.48, cm, 01/04/23 15:03:00 CDT, Height/Length [...] information Care Team Personnel Name: Jessee Jones COMMERCIAL MARKETING SPECIALIST Position: Physician Member Role: Nurse Practitioner Address: Address: [address] [facility], [address] [place] [address]- Name: Latoya Marquez COMMERCIAL MARKETING SPECIALIST Position: Physician Member Role: Nurse Practitioner Address: Address: [address] [place] [address]- Name: Leonila Gonzalez COMMERCIAL MARKETING SPECIALIST Position: Physician Member Role: Nurse Practitioner Address: Address: [address] [place] [address]- Name: Beth Brandt COMMERCIAL MARKETING SPECIALIST Position: Physician Member Role: Nurse Practitioner Address: Address: [address] [place] [address] [place] [address] Name: Hermes Ramirez MD Position: Physician Member Role: Primary Care Physician Address: Address: [address] [place] [address], [address] [place] [address]- Name: Anamika Gore MD Position: Physician - Women's Health Member Role: Informed Provider Name: Pillo Moe COMMERCIAL MARKETING SPECIALIST Position: Physician Member Role: Nurse Practitioner Address: Address: [address] [facility], [address] [facility] Care Team Related Persons Name: STACIA JONES Address: Home [address] [place], [place] [id number] Name: ROBYN JAMA
--- OUTSIDE RECORDS SUMMARY | 2024-03-20 11:41 | XMS_ITS | Continuity of Care Document ---
Author Organization [facility] Address [address] [place] [address] Care Team Providers Care Silviculture Teacher Name Role Phone Hermes Ramirez Primary Care Physician Encounter ONOFREEver MCGRAW [id number] Date(s): 09/10/22 - 09/10/[address] [address] Encounter Diagnosis Migraine headache(Discharge Diagnosis) - 09/10/22 Discharge Disposition: Home or Self Care Attending [...] Ag, EIA LC 04/07/22 * Cryptosporidium EIA 04/07/22 * Stool [...] wheezing, # 6.7 g, 0 Refill(s), Pharmacy: [place], [place], 73, cm, 09/13/21 23:53:00 CDT, Height/Length Dosing, 157, kg, 09/13/21 23:53:00 CDT, Weight Dosing Start Date: 09/14/21 Status: Ordered amLODIPine 5 mg oral tablet 5 mg = 1 tab, Oral, Daily, # 30 tab, 0 Refill(s), Pharmacy: [place], [place], 157, cm, 08/14/22 15:06:00 CDT, Height/Length Dosing, 81, kg, 08/14/22 15:06:00 CDT, Weight Dosing Start Date: 09/05/22 Status: Ordered aspirin 81 mg oral delayed [...] needed, # 12 cap, 0 Refill(s), Pharmacy: [place], [place], 157, cm, 11/04/21 20:02:00 CDT, Height/Length [...] BID, # 60 cap, 0 Refill(s), Pharmacy: [place], 157, cm, 08/14/22 15:06:00 CDT, Height/Length Dosing, 81, kg, 08/14/22 15:06:00 CDT, Weight Dosing Start Date: 09/05/22 Status: Ordered Pepcid 20 mg oral tablet 20 mg = 1 tab, Oral, BID, 0 Refill(s) Start Date: 09/29/20 Status: Ordered Phenergan 25 mg oral tablet 25 mg = 1 tab, Oral, every 6 hr, PRN as needed for nausea/vomiting, # 20 tab, 0 Refill(s), Pharmacy: [place], [place], 157, cm, 09/29/21 23:03:00 CDT, Height/Length [...] [35.8-37.3 Deg C] 37 De g C (09/10/22 3:02 PM) Peripheral Pulse Rate [60-100 bpm] 67 bp m (09/10/22 3:02 PM) Respiratory Rate [12-24 br/min] 18 br/mi n (09/10/22 3:02 PM) Blood Pressure [90-140/60-90 mmHg] 130/8 6mmHg (09/10/22 3:02 PM) Weight 86.10 kg (09/10/22 3:02 PM) Weight Dosing 86.10 kg (09/10/22 3:23 PM) Height 157.000 cm (09/10/22 3:02 PM) Height/Length Dosing 157.000 cm (09/10/22 3:23 PM) Body Mass Index 35.000 kg/m2 (09/10/22 3:02 PM) Social History Social History Type Response Tobacco Current everyday tob acco user Tobacco Use:. Sex Hospital Discharge Instructions Patient Education 09/10/2022 16:06:04 Chronic Migraine Headache Chronic Migraine Headache A [...] these instructions at home: Medicines ??? Take mwjp-wqt-qrbaich and prescription medicines only as told by [...] Headache and Migraine Patients (CHAMP): headachemigraine.org ??? [place] Migraine Foundation: [email or web address].org ??? National Headache Foundation: [...] Reviewed: 04/22/2020 Elsevier Patient Education ?? 2021 [employer] Follow Up Care 09/10/2022 15:02:52 With:Hermes Ramirez MD Address: [address] [place] [address], [address] [place] [address]- When:2 to 4 days Comments:If you develop worsening symptoms, fever,??vomiting, stiff neck,??or new concerning symptoms, return to the emergency department. Physician Emergency department Note * Akil Casas MD: PERFORM Event Display: ED Note Physician Authored Date: [id number] MISHA JACKSON :1980 Age:41 years Sex:Female Visit Date:09/10/2022 Primary Care Physician: Hermes Ramirez MD Basic Information Time Seen: Akil Casas MD / 09/10/2022 15:31 Chief Complaint migrane X3days. ??tylenol at 1200. 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 Is on the right side, throbbing and associated with photophobia??nausea.?? She took Tylenol at home??to no avail.?? She has had no vomiting, fever, neck stiffness or recent illness.?? Records show that she was seen at [facility]??on 09/05 and [facility] on 07/27 for similar complaints.?? Review of Systems: Constitutional:?No??fevers,?No??chills,?No??sweats Eye:?As above Respiratory:?No??shortness of breath,?No??cough Cardiovascular:?No??Chest pain,?No??palpitations,?No??syncope Gastrointestinal:?Positive fornausea,?No??vomiting Musculoskeletal:??No??back pain,??No??neck pain,??No??joint pain,??No??muscle pain,??No??decreased range of motion Integumentary:?No??rash,?No??pruritus,?No??abrasions Neurologic: No weakness, no numbness Physical Exam Vitals & Measurements T:??37?C ??(Oral)?? HR:??67??(Peripheral)?? RR:??18?? BP:??130/86?? SpO2:??98%?? HT:??157.000??cm?? WT:??86.10??kg?? BMI:??35.000?? O2 Therapy:??Room air?? General: Alert and oriented, well nourished,?Moderate acute distress Eye: PERRL, EOMI,?Normal?conjunctiva HENT: Normocephalic, moist oral mucosa,?No??scleral icterus Neck: Supple, non-tender Lungs:??Clear to auscultation?? Respiration:??Non-Labored Heart:?Normal? rate,?Regular??rhythm,?No??murmur,?No??gallop,?No??edema Musculoskeletal:?Normal? range of motion and strength,?No??tenderness,?No??swelling Skin: Skin is warm, dry and pink,?No??rashes,?No??lesions Neurologic: Awake, alert and oriented X4, CN II-XII intact Psychiatric: Cooperative, appropriate mood and affect Medical Decision Makin:??Patient asking for narcotic pain medication.?? I explained that there is no role for narcotic pain medication and migraines??and reminded her of our previous discussions.?? Asked her if there is any other medications we can give her that would help her.?? We have used Phenergan and Benadryl in the past.?? She states there is no point in getting any medication if she cannot have any??narcotics because??they are??the only medicines that work.?? After I left the room the patient changed hermind??and wanted to have some IM??Phenergan and Benadryl. Procedure No Qualifying Data Assessment/Plan 1.??Migraine headache??G44.89 Follow-up with neurology/PCP. Orders: Discharge Patient, 09/10/22 16:06:00 CDT, Home Independently, Constant Indicator Patient Discharge Condition Good Discharge Disposition Home Patient Education Chronic Migraine Headache Follow Up With When Contact Information Hermes Ramirez MD Within 2 to 4 days [facility], [address] [place] [address]- Additional Instructions: If you develop worsening symptoms, fever,??vomiting, stiff neck,??or new concerning symptoms, return to the emergency department. Medication Reconciliation Unchanged albuterol (albuterol 90 mcg/inh aerosol inhaler)1 Puffs Inhale (breathe in) every 4 hours as neededas needed for wheezing. Refills: 0. ?? amLODIPine (amLODIPine 5 mg oral tablet)1 tab [...] coronavirus Ear drainage right Fever Flank pain Headache, chronic migraine without [...] Medication Administration Given diphenhydrAMINE, 50 mg, IM Phenergan, 25 mg, IM Allergies NSAIDs Toradol??(Kidney failure as a complication of care) aspirin??(Medication interaction) azithromycin??(Unknown) codeine??(Unknown, Itching) gentamicin erythromycin??(Medication interaction) Social History Alcohol Never Electronic Cigarette/Vaping Electronic Cigarette Use: Never. Substance Use Never Tobacco Current everyday tobacco user Tobacco Use:. Family History Cancer: Mother. Electronically Signed on 09/10/22 04:07 PM Akil Casas MD Patient Care team information Care Team Personnel Name: Jessee Jones COFFEE BREAK ATTENDANT Position: Physician Member Role: Nurse Practitioner Address: Address: [address] [place] [address], [address] [place] [address] Name: Latoya Marquez COFFEE BREAK ATTENDANT Position: Physician Member Role: Nurse Practitioner Address: Address: [address] [place] [address]- Name: Leonila Gonzalez COFFEE BREAK ATTENDANT Position: Physician Member Role: Nurse Practitioner Address: Address: [address] [place] [address] Name: Beth Brandt COFFEE BREAK ATTENDANT Position: Physician Member Role: Nurse Practitioner Address: Address: [address] [place] [address] Name: Hermes Ramirez MD Position: Physician Member Role: Informed Provider Address: Address: [address] [place] [address], [address] [place] [address]- Name: Pillo Moe COFFEE BREAK ATTENDANT Position: Physician Member Role: Nurse Practitioner Address: Address: [address] [place] [address], [facility] Name: Gia Underwood RN Position: Nurse Member Role: ED Nurse Name: Akil Casas MD Position: Physician Member Role: Admitting Physician Care Team Related Persons Name: STACIA JONES Address: [address] [id number] Name: ROBYN JAMA Address: Home
--- OUTSIDE RECORDS SUMMARY | 2024-03-20 11:41 | XMS_ITS | Continuity of Care Document ---
Author Organization [facility] Address [address] [place] [address] Care Team Providers Care University Demonstrator Name Role Phone Hermes Ramirez Primary Care Physician [phone] Encounter ONOFRE MCGRAW [id number] Date(s): 01/22/23 - 01/22/[address] [address] [place] Encounter Diagnosis Acute migraine(Discharge Diagnosis) - 01/22/23 Discharge Disposition: Home or Self Care Attending Physician: Fernando House MD Allergies, Adverse Reactions, [...] Daily, # 30 tab, 11 Refill(s), Pharmacy: [place], [place], [address], cm, 01/04/23 15:03:00 CDT, Height/Length [...] BID, # 60 cap, 11 Refill(s), Pharmacy: [place], [place], [address], cm, 01/04/23 15:03:00 CDT, Height/Length [...] KIT 10 Start Date: 01/02/23 Status: Ordered venlafaxine 37.5 mg oral capsule, [...] Oral [35.8-37.3 Deg C] 37.3 Deg C (01/22/23 2:15 PM) Peripheral Pulse Rate [60-100 bpm] 82 bp m (01/22/23 3:40 PM) 98 bpm (01/22/23 2:15 PM) Respiratory Rate [12-24 br/min] 18 br/mi n (11/5/23 2:15 PM) Blood Pressure [90-140/60-90 mmHg] 170/1 03mmHg *HI* (01/22/23 3:40 PM) 145/84mmHg *HI* (01/22/23 2:15 PM) Mean Arterial Pressure, Cuff [65-140 mmH g] 104 mmHg (01/22/23 2:15 PM) Weight 81.65 kg (01/22/23 2:15 PM) Weight Dosing 81.65 kg (01/22/23 2:44 PM) Height 157.480 cm (01/22/23 2:44 PM) 157.480 cm (01/22/23 2:15 PM) Body Mass Index 33.000 kg/m2 (01/22/23 2:15 PM) Social History Social History Type Response Tobacco Current everyday tob acco user Tobacco Use:. Sex Hospital Discharge Instructions Patient Education 01/22/2023 15:41:43 Migraine Headache Migraine Headache A migraine headache [...] these instructions at home: Medicines ??? Take owgy-fww-ejhgjkb and prescription medicines only as told by your health care provider. ??? Ask your health care provider if the medicine prescribed to you: ??? Requires you to avoid driving or using heavy machinery. ??? Can cause constipation. You may need to take these actions to prevent or treat constipation: ??? Drink enough fluid to keep your urine pale yellow. ??? Take flnc-dmk-suvcmjb or prescription medicines. ??? Eat foods that [...] provider. Document Revised: 06/28/2019 Document Reviewed: 04/18/2019 [employer] Patient Education ?? 2022 [employer]. Follow Up Care 01/22/2023 14:15:45 With:Neurology Address:Unknown When:3 to 5 days Physician Emergency department Note * Fernando House MD: PERFORM, MODIFY, MODIFY Event Display: ED Note Physician Authored Date: [id number] MISHA JACKSON :1980 Age:42 years Sex:Female Visit Date:01/22/2023 Primary Care Physician: Hermes Ramirez MD Basic Information Time Seen: Fernando House MD / 01/22/2023 14:51 Chief Complaint pt to ed via pov with c/o opf a migrine of 7/10 that strated this monring pt states she took 1000mgof tylonal at 1130. no relief. pt is a/o 4 History Of Present Illness: Patient with history of prior??kidney and liver transplant, recurrent migraine headaches. ??She started having another migraine headache this morning??typical of her usual migraines rated to be 7/10 in severity??she??throbbing??and persistent accompanied by nausea but no vomiting. ??No sensory or motor deficit, no sinus congestion??cough fever or dyspnea. Patient has been to our ER??8 times over the last 2 months??with her migraine.?? She stated that she is due to see her neurologist??and get back on Topamax and have??another Botox??injection for her migraine Review of Systems: Constitutional:?No??fevers,?No??chills,?No??sweats Eye:?No??recent visual problems ENT:?No??ear pain,?No??nasal congestion,?No??sore throat Respiratory:?No??shortness of breath,?No??cough Cardiovascular:?No??Chest pain,?No??palpitations,?No??syncope Gastrointestinal:?Positive fornausea,?No??vomiting,?No??diarrhea Genitourinary:?No??hematuria Clemente/Lymph:?No??bruising tendency,?No??swollen lymph glands Endocrine:?No??excessive thirst,??No??excessive hunger Musculoskeletal:??No??back pain,??No??neck pain,??No??joint pain,??No??muscle pain,??No??decreased range of motion Integumentary:?No??rash,?No??pruritus,?No??abrasions Neurologic: Alert & oriented X 4 Psychiatric:?No??anxiety,?No??depression Physical Exam Vitals & Measurements T:??37.3?C ??(Oral)?? HR:??98??(Peripheral)?? RR:??18?? BP:??145/84?? SpO2:??98%?? HT:??157.480??cm?? WT:??81.65??kg?? BMI:??33.000?? O2 Therapy:??Room air?? General: [Alert and oriented, well nourished, in mild distress secondary to pain].?? Eye: [PERRL, EOMI, normal conjunctiva]. HENT: [Normocephalic, [...] mood and affect]. Medical Decision Making: Patient is receiving??morphine 2 mg IM,??Phenergan 25 mg IM and Benadryl 25 mg IM??and she was observed. ??Her headache subsided and she was feeling fine and wants to go home. ??She is discharged home with recommendations to follow-up with her neurologist Procedure No Qualifying Data Assessment/Plan Recurrent migraine, Treated as above History of??kidney and liver transplant Ordered: Benadryl, 25 mg = 0.5 mL, IM, Injection, Once, First Dose: 01/22/23 15:02:00 ART DISPLAY MAKER, Stop Date: 01/22/23 15:02:00 ART DISPLAY MAKER, Physician Stop, STAT morphine, 2 mg = 1 mL, IM, Injection, Once, First Dose: 01/22/23 15:02:00 ART DISPLAY MAKER, Stop Date: 01/22/23 15:02:00 ART DISPLAY MAKER, Physician Stop, STAT Phenergan, 25 mg = 1 mL, IM, Injection, Once, First Dose: 01/22/23 15:02:00 ART DISPLAY MAKER, Stop Date: 01/22/23 15:02:00 ART DISPLAY MAKER, Physician Stop, STAT Patient Education Migraine Headache Follow Up With When Contact Information Neurology Within 3 to 5 days Additional Instructions: [...] FOR 4 WEEKS +SYRINGE KIT 10. ?? venlafaxine (venlafaxine 37.5 mg oral capsule, [...] Liver transplantation (05/08/2020)???Mammogram (2020)??? delivery???cyst removal from [facility]???[place]???liver transplant Medication Administration Given Benadryl, 25 mg, IM morphine, 2 mg, IM Phenergan, [...] Family History Cancer: Mother. Electronically Signed on 01/22/23 03:43 PM Fernando House MD Patient Care team information Care Team Personnel Name: Jessee Jones PHARMACY LABORATORY TECHNICIAN Position: Physician Member Role: Nurse Practitioner Address: Address: [address] [place] [address], [address] Name: Latoya Marquez PHARMACY LABORATORY TECHNICIAN Position: Physician Member Role: Nurse Practitioner Address: Address: [address] [place] [address]- Name: Leonila Gonzalez PHARMACY LABORATORY TECHNICIAN Position: Physician Member Role: Nurse Practitioner Address: Address: [address] [place] [address]- Name: Beth Brandt PHARMACY LABORATORY TECHNICIAN Position: Physician Member Role: Nurse Practitioner Address: Address: [address] [place] [address] Name: Hermes Ramirez MD Position: Physician Member Role: Primary Care Physician Address: Address: [address] [facility], [address] Name: Anamika Gore MD Position: Physician - Women's Health Member Role: Informed Provider Name: Pillo Moe NP Position: Physician Member Role: Nurse Practitioner Address: Address: [address] [place] [address], [address] [facility] Name: Fernando House MD Position: Physician Member Role: Attending Physician Name: Diogenes Jara RN Position: Nurse Member Role: Registered Nurse Care Team Related Persons Name: STACIA JONES Address: Home [address] [place] [phone] Name: ROBYN JAMA
--- OUTSIDE RECORDS SUMMARY | 2024-03-20 11:41 | XMS_ITS | Continuity of Care Document ---
Author Organization [facility] Address [address] [place] [address] Care Team Providers Care Vaccines Solutions Specialist Name Role Phone Hermes Ramirez Primary Care Physician Encounter [facility] [id number] Date(s): 01/31/22 - 01/31/[address] [address] [place] Encounter Diagnosis Migraine headache(Discharge Diagnosis) - 01/31/22 Foraminal stenosis of cervical region(Discharge Diagnosis) - 01/31/22 Discharge Disposition: Home or Self Care Attending [...] Assessment and Plan Future Appointments Functional Status 01/31/22 Family Member Travel History No recent t [...] wheezing, # 6.7 g, 0 Refill(s), [facility] [place], [facility], cm, 09/13/21 23:53:00 CDT, Height/Length Dosing, [...] needed, # 12 cap, 0 Refill(s), [facility] [place], [facility], cm, 11/04/21 20:02:00 CDT, Height/Length Dosing, [...] BID, # 180 tab, 3 Refill(s), [facility] [place], 157, cm, 10/22/20 21:26:00 CDT, Height/Length Dosing, 74, kg, 10/22/20 21:26:00 CDT, Weight Dosing Start Date: 12/18/20 Status: Ordered ondansetron 4 mg oral tablet, disintegrating 4 mg = 1 tab, Oral, every 6 hr, PRN nausea/vomiting, # 12 tab, 0 Refill(s), Pharmacy: [facility] [place], 157, cm, 11/04/21 20:02:00 CDT, Height/Length Dosing, [...] # 20 tab, 0 Refill(s), Pharmacy: [place], [place], 157, cm, 09/29/21 23:03:00 CDT, Height/Length [...] needed., # 2 tab, 0 Refill(s), Pharmacy: [place], 157, cm, 01/05/22 0:17:00 CDT, Height/Length [...] 1 2 Temperature Oral [35.8-37.3 Deg C] 36.7 Deg C (01/31/22 12:03 PM) Peripheral Pulse Rate [60-100 bpm] 85 bp m (01/31/22 6:34 PM) 88 bpm (01/31/22 12:03 PM) Respiratory Rate [12-24 br/min] 16 br/mi n (01/31/22 6:34 PM) 16 br/min (01/31/22 12:03 PM) Blood Pressure [90-140/60-90 mmHg] 149/9 9mmHg *HI* (01/31/22 6:34 PM) 159/99mmHg *HI* (01/31/22 12:03 PM) Weight Dosing 72.60 kg (01/31/22 7:20 PM) Weight Estimated 72.60 kg (01/31/22 12:03 PM) Height/Length Dosing 158.000 cm (01/31/22 7:20 PM) Height/Length Estimated 158.000 cm (01/31/22 12:03 PM) Social History Social History Type Response Tobacco Current some day tob acco user Tobacco Use:. Sex Hospital Discharge Instructions Patient Education 01/31/2022 14:02:39 Chronic Migraine Headache, Icxl-pm-Nllv Chronic Migraine Headache A migraine headache is [...] these instructions at home: Medicines ??? Take umul-ifj-quqanch and prescription medicines only as told by [...] Headache and Migraine Patients (CHAMP): headachemigraine.org ??? [place] Migraine Foundation: americanmigrainefoundation.org ??? National Headache Foundation: [...] provider. Document Revised: 04/22/2020 Document Reviewed: 04/22/2020 [employer] Patient Education ?? 2021 [employer] Follow Up Care 01/31/2022 12:03:26 With:Follow up with primary care provider Address: When:5 to 7 days Physician Emergency department Note * Felicia Roach MD: PERFORM Event Display: ED Note Physician Authored Date: [id number] MISHA JACKSON :1980 Age:41 years Sex:Female Visit Date:01/31/2022 Primary Care Physician: Hermes Ramirez MD Basic Information Time Seen: Felicia Roach MD / 01/31/2022 13:18 History Of Present Illness: ??no [id number] female,??who is very well-known to our ER because of her almost??weekly visit for migraine, complains of a recurring migraine associated with a recurring??neck pain.?? 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 She has chronic pain syndrome and chronic intractable migraines.?? Chronic ear infections status post bilateral tympanostomy.?? Chronic low back pain. ??Neck pain. ??She said she just saw her primary physician??and she is being scheduled for an MRI. ??No neurologic complaints no fever or chills Review of Systems: Constitutional:?No??fevers,?No??chills,?No??sweats Eye:?No??recent visual problems ENT:?No??ear pain,?No??nasal congestion,?No??sore throat Respiratory:?No??shortness of breath,?No??cough Cardiovascular:?No??Chest pain,?No??palpitations,?No??syncope Gastrointestinal:?Nonausea,?No??vomiting,?No??diarrhea Genitourinary:?No??hematuria Clemente/Lymph:?No??bruising tendency,?No??swollen lymph glands Endocrine:?No??excessive thirst,??No??excessive hunger Musculoskeletal:??No??back pain,??Positive for??neck pain,??No??joint pain,??No??muscle pain,??No??decreased range of motion Integumentary:?No??rash,?No??pruritus,?No??abrasions [...] appropriate mood and affect Medical Decision Making: MRI of the cervical spine done 01/14/2022 reviewed??and showed DDD with central canal??stenosis??most noticeable at C3 and C4 Procedure No Qualifying Data Assessment/Plan 1.??Migraine headache??G43.909 See your neurologist as scheduled 2.??Foraminal stenosis of cervical region??M48.02 Follow-up with PCP with the results of the MRI Orders: Benadryl, 50 mg = 1 mL, IM, Injection, Once, First Dose: 01/31/22 13:45:00 DISPLAY CARVER, Stop Date: 01/31/2213:45:00 DISPLAY CARVER, Physician Stop morphine, 2 mg = 0.5 mL, IM, Injection, Once, First Dose: 01/31/22 13:45:00 DISPLAY CARVER, Stop Date: 01/31/22 13:45:00 DISPLAY CARVER, Physician Stop Phenergan, 25 mg = 1 mL, IM, Injection, Once, First Dose: 01/31/22 13:45:00 DISPLAY CARVER, Stop Date: 01/31/22 13:45:00 DISPLAY CARVER, Physician Stop Patient Discharge Condition Stable Discharge Disposition Discharge to home Patient Education Chronic Migraine Headache, Yaks-zz-Eiae Follow Up With When Contact Information Follow up with primary care provider Within 5 to 7 days Additional Instructions: Medication Reconciliation Unchanged albuterol (albuterol 90 mcg/inh aerosol inhaler)1 Puffs Inhale (breathe in) every 4 hours as neededas needed for wheezing. Refills: 0. ?? ALPRAZolam (Xanax 0.5 mg oral tablet)1 tab Oral (given by mouth) once. Take 1/2 hr before procedure. May repeat one time if needed.. Refills: 0. ?? amLODIPine (amLODIPine 10 mg oral tablet)TAKE ONE TABLET DAILY. ?? aspirin (aspirin 81 mg oral delayed release tablet)1 tab Oral (given by mouth) every day. ?? butalbital/acetaminophen/caffeine (butalbital/acetaminophen/caffeine 50 mg-300 mg-40 mg oral capsule)1 Capsules Oral (given by mouth) every 4 hours as needed. Refills: 0. ?? butalbital/acetaminophen/caffeine (butalbital/acetaminophen/caffeine 50 mg-300 mg-40 mg oral capsule)1 Capsules Oral (given by mouth) every 4 hours as needed. Refills: 0. ?? ciprofloxacin (ciprofloxacin 500 mg oral tablet)1 tab Oral (given by mouth) every 12 hours for 7 Days. Refills: 0. ?? clotrimazole topical (clotrimazole 1% topical solution)3 Drops Topical (on the skin) 2 times a day.TO RIGHT EAR. ?? famotidine (Pepcid 20 mg oral tablet)1 tab Oral (given by mouth) 2 times a day. ?? gabapentin (gabapentin 300 mg oral capsule)TAKE ONE CAPSULE AT BEDTIME. ?? LORazepam (LORazepam 0.5 mg oral tablet)TAKE ONE TABLET BY MOUTH DAILY NEEDED FOR ANXIETY. ?? metoprolol (Metoprolol Tartrate 25 mg oral tablet)1 tab Oral (given by mouth) 2 times a day. Refills: 3. ?? ondansetron (ondansetron 4 mg oral tablet, disintegrating)1 tab Oral (given by mouth) every 6 hoursas needed nausea/vomiting for 3 Days. Refills: 0. ?? promethazine (Phenergan 25 mg oral tablet)1 tab Oral (given by mouth) every 6 hours as needed as needed for nausea/vomiting for 5 Days. Refills: 0. ?? tacrolimus (tacrolimus 1 mg oral capsule, [...] Mother. Attending Attestation Stable Electronically Signed on 01/31/22 02:03 PM Felicia Roach MD Patient Care team information Care Team Personnel Name: Jessee Jones TOE TRIMMER Position: Physician Member Role: Nurse Practitioner Address: Address: [address] [facility], [address] [place] [address]- Name: Latoya Marquez TOE TRIMMER Position: Physician Member Role: Nurse Practitioner Address: Address: [address] [place] [address]- [place] Name: Leonila Gonzalez TOE TRIMMER Position: Physician Member Role: Nurse Practitioner Address: Address: [address] [place] [address]- Name: Beth Brandt TOE TRIMMER Position: Physician Member Role: Nurse Practitioner Address: Address: [id number] [place] [address] Name: Hermes Ramirez MD Position: Physician Member Role: Informed Provider Address: Address: [address] [facility], [address] [place] [address]- Name: Pillo Moe TOE TRIMMER Position: Physician Member Role: Nurse Practitioner Address: Address: [address] [facility], [address] [facility] Name: Felicia Roach MD Position: Physician Member Role: ED Physician Address: Address: [address] [place] [address]- Name: Paris Morrissey RN Position: Nurse Member Role: ED Nurse Care Team Related Persons Name: STACIA JONES Address: Home [address] [place], [place] [id number] Name: ROBYN JAMA Address: Home
--- OUTSIDE RECORDS SUMMARY | 2024-03-20 11:41 | XMS_ITS | Continuity of Care Document ---
Author Organization [facility] Address [address] [place] [address] Care Team Providers Care Trucker Hand Name Role Phone Hermes Ramirez Primary Care Physician [phone] Encounter [facility] [id number] Date(s): 02/23/24 - 02/23/24 [facility] [address] [place] [address]- [place] Discharge Disposition: Home or [...] Plan Future Appointments Future Scheduled Tests Radiology* NM Lung Vent/Perf Imaging 02/12/24 Immunizations Given [...] Daily, # 30 tab, 11 Refill(s), Pharmacy: [place], [place], 157.48, cm, 01/04/23 15:03:00 CDT, Height/Length [...] 2 Refill(s), Pharmacy: [facility], 157.5, cm,02/06/24 16:22:00 DIP DYER, Height, 89.91, kg, 02/06/24 16:28:00 DIP DYER, Weight Dosing Start Date: 02/07/24 Status: Ordered [...] BID, # 60 cap, 11 Refill(s), [place] [facility], 157.48, cm, 01/04/23 15:03:00 CDT, Height/Length Dosing, 81.65, kg, 01/04/23 15:03:00 CDT, Weight Dosing Start Date: 01/11/23 Status: Ordered nicotine 21 mg/24 hr transdermal film, extended release 1 patches, Transdermal, Daily, # 14 patches, 1 Refill(s), [facility]: [id number], 157.48, cm, 01/01/24 14:49:00 CDT, Height, 87.09, kg, 01/01/24 14:53:00 CDT, Weight Dosing Start Date: 01/01/24 Status: Ordered Nicotrol Inhaler 10 mg inhalation device See Instructions, 6-16 cartriges/day, # 1 EA, 2 Refill(s), Pharmacy: [id number], 157.48, cm, 08/29/23 14:22:00 CDT, Height, 88, kg, 08/29/23 14:27:00 CDT, Weight Dosing Start Date: 08/29/23 Status: Ordered pantoprazole 40 mg oral delayed release tablet 1 tab, Oral, Daily, # 90 tab, 0 Refill(s), [facility]: [facility], 157.48, cm, 06/07/23 16:07:00 CDT, Height, 89.36, [...] cough, # 21 cap, 0 Refill(s), [facility]: [id number], 157.48, cm, 02/12/24 8:34:00 DIP DYER, Height, 91.63, kg, 02/12/24 8:41:00 DIP DYER, Weight Dosing Start Date: 02/12/24 Stop Date: 02/19/24 Status: Ordered venlafaxine 37.5 mg oral capsule, extended release 37.5 mg = 1 cap, Oral, Daily, # 90 cap, 0 Refill(s), [facility]acy: [id number], 157.48, cm, 09/28/23 18:18:00 CDT, Height, [...] information Care Team Personnel Name: Jessee Jones UTILITY AIRCREWMAN Position: Physician Member Role: Nurse Practitioner Address: [address] [facility], [address] Name: Latoya Marquez UTILITY AIRCREWMAN Position: Physician Member Role: Nurse Practitioner Address: [address] [place] [address] Name: Leonila Gonzalez UTILITY AIRCREWMAN Position: Physician Member Role: Nurse Practitioner Address: [address] [place] [address] Name: Beth Brandt UTILITY AIRCREWMAN Position: Physician Member Role: Nurse Practitioner Address: [address] [place] [address] Name: Hermes Ramirez MD Position: Physician Member Role: Informed Provider Address: [address] [facility], [address] Name: Pillo Moe UTILITY AIRCREWMAN Position: Physician Member Role: Nurse Practitioner Address: [address] [place] [address], [address] [facility] Care Team Related Persons Name: STACIA JONES Name: ROBYN JAMA Name: NAIF CHOI Name: MADY CHEN Name: MADY CHEN Insurance Providers Guarantor name: MISHA JACKSON Health Plan Information #: 1 Payer: [employer] Member Number: [id number] Policy Number: NA Health Plan Information #: 2 Payer: [facility] MEDICAID MGD CARE Member Number: [id number] Policy Number: NA Health Plan Information #: 3 Payer: MISC Workers Comp Member Number: NA Policy Number: NA
--- OUTSIDE RECORDS SUMMARY | 2024-03-20 11:42 | XMS_ITS | Continuity of Care Document ---
Author Organization [facility] Address [address] [place] [address] Care Team Providers Care Superintendent Power Name Role Phone Hermes Ramirez Primary Care Physician Encounter [facility] [id number] Date(s): 07/29/21 - 07/29/21 [address] [address] [place] [address] [place] Discharge Disposition: Home or Self Care Attending Physician: Hermes Ramirez MD Admitting Physician: Hermes Ramirez MD Allergies, Adverse Reactions, Alerts Substance Reaction Severity Status gentamicin Moderate Active erythromycin Medication interaction Activ e aspirin Medication interaction Activ e Toradol Kidney failure as a complication of care Active NSAIDs Severe Active Assessment and Plan Future Appointments Diagnostic Tests Pending * Ear Culture 07/29/21 Future Scheduled Tests Radiology* MRI Spine Cervical [...] BID, # 180 tab, 3 Refill(s), Pharmacy: [place], [place], 157, cm, 10/22/20 21:26:00 CDT, Height/Length [...] Team Personnel Name: Hermes Ramirez MD Address: [address] [place] [address], [address] [place] [address]-
--- OUTSIDE RECORDS SUMMARY | 2024-03-20 11:42 | XMS_ITS | Continuity of Care Document ---
Author Organization [facility] Address [address] [place] [address] Care Team Providers Care Ventilating Expert Name Role Phone Hermes Ramirez Primary Care Physician Encounter [facility] [id number] Date(s): 02/24/23 - 02/24/[address] [address] [place] Encounter Diagnosis Headache, chronic migraine without aura, intractable(Discharge Diagnosis) - 02/24/23 Chronic back pain(Discharge Diagnosis) - 02/24/23 Other chronic pain(Discharge Diagnosis) - 02/24/23 Discharge Disposition: Home or Self Care Attending [...] Daily, # 30 tab, 11 Refill(s), Pharmacy: [place], [place], 157.48, cm, 01/04/23 15:03:00 CDT, Height/Length [...] BID, # 60 cap, 11 Refill(s), Pharmacy: [place], [place], 157.48, cm, 01/04/23 15:03:00 CDT, Height/Length [...] Body Site Status Screening Pap Smear; Allison ramirez Preparing And Conveyance Of Cervical/Vaginal Smear To [...] [35.8-37.3 Deg C] 37 De g C (02/24/23 3:41 PM) Peripheral Pulse Rate [60-100 bpm] 70 bp m (02/24/23 3:41 PM) Respiratory Rate [12-24 br/min] 20 br/mi n (02/24/23 3:41 PM) Blood Pressure [90-140/60-90 mmHg] 142/9 1mmHg *HI* (02/24/23 3:41 PM) Mean Arterial Pressure, Cuff [70-110 mmH g] 108 mmHg (02/24/23 3:41 PM) Weight 86.64 kg (02/24/23 3:41 PM) Weight Dosing 86.640 kg (02/24/23 3:41 PM) Height 157 cm (02/24/23 3:41 PM) Body Mass Index 35.15 kg/m2 (02/24/23 3:41 PM) Social History Social History Type Response Tobacco Current everyday tob acco user Tobacco Use:. Sex Hospital Discharge Instructions Patient Education 02/24/2023 16:46:41 Acute Back Pain, Adult Acute Back Pain, Adult Acute back pain is sudden and usually [...] Managing pain, stiffness, and swelling ??? Take djcp-nxn-devsxkg and prescription medicines only as told by [...] day. ??? Do not sit, drive, or guide dog instructor one place for more than 30 minutes [...] less stress on your back. ??? Take jjie-zfc-ntsjezy and prescription medicines only as told by your health care provider, andapply heat or ice as told. This information is not intended to replace advice given to you by your health care provider. Make sure you discuss any questions you have with your health care provider. Document Revised: 05/28/2021 Document Reviewed: 05/28/2021 [employer] Patient Education ?? 2022 [employer] 02/24/2023 16:46:33 Chronic Migraine Headache, Mrej-cq-Mlrp Chronic Migraine Headache A migraine headache is [...] these instructions at home: Medicines ??? Take hclq-dwd-muzavkt and prescription medicines only as told by [...] Reviewed: 04/22/2020 Elsevier Patient Education ?? 2022 [employer] Follow Up Care 02/24/2023 15:40:58 With:Hermes Ramirez MD Address: [address] [place] [address], [address] [place] [address]- When:1 week Comments:Continue other home medications. ??Return to ED if symptoms worsen. Physician Emergency department Note * Jesus Khan MD: PERFORM Event Display: ED Note Physician Authored Date: [id number] MISHA JACKSON :1980 Age:42 years Sex:Female Visit Date:02/24/2023 Primary Care Physician: Hermes Ramirez MD Basic Information Time Seen: Jesus Khan MD / 02/24/2023 16:24 Chief Complaint c/o back pain X couple of weeks and migraine since this morning. ??tylenol at 1200. History Of Present Illness: 42 years old female comes in complaining of migraine headache.?has history of chronic??migraine;??this episode started again??this morning.?? Also complaining of back pain??(chronic.)?? Experiencing some nausea. Review of Systems: Constitutional:?No??fevers,?No??chills,?No??sweats Eye:?No??recent visual problems ENT:?No??ear pain,?No??nasal congestion,?No??sore throat Respiratory:?No??shortness of breath,?No??cough Cardiovascular:?No??Chest pain,?No??palpitations,?No??syncope Gastrointestinal:?Positive fornausea,?No??vomiting,?No??diarrhea Genitourinary:?No??hematuria Clemente/Lymph:?No??bruising tendency,?No??swollen lymph glands Endocrine:?No??excessive thirst,??No??excessive hunger Musculoskeletal:??Positive for??back pain,??No??neck pain,??No??joint pain,??No??muscle pain,??No??decreased range of motion Integumentary:?No??rash,?No??pruritus,?No??abrasions Neurologic: Alert & oriented X 4 Psychiatric:?No??anxiety,?No??depression Physical Exam Vitals & Measurements T:??37?C ??(Oral)?? HR:??70??(Peripheral)?? RR:??20?? BP:??142/91?? SpO2:??98%?? HT:??157??cm?? WT:??86.64??kg?? BMI:??35.15?? O2 Therapy:??Room air?? General: Alert and oriented, [...] mg IM. ??Benadryl 50 mg IM.?? Morphine sulfate 2 mg IM. Procedure No Qualifying Data Assessment/Plan 1.??Headache, chronic migraine without aura, intractable??G43.719 2.??Chronic back pain??M54.9 Other chronic pain??G89.29 Orders: Benadryl, 50 mg = 1 mL, Intramuscular, Injection, Once, First Dose: 02/24/23 17:00:00 CHIEF WHARFINGER, Stop Date: 02/24/23 17:00:00 CHIEF WHARFINGER, Physician Stop, Routine morphine, 2 mg = 1 mL, Intramuscular, Injection, Once, First Dose: 02/24/23 17:00:00 CHIEF WHARFINGER, Stop Date: 02/24/23 17:00:00 CHIEF WHARFINGER, Physician Stop, Routine Phenergan, 25 mg = 1 mL, Intramuscular, Injection, Once, First Dose: 02/24/23 17:00:00 CHIEF WHARFINGER, Stop Date: 02/24/23 17:00:00 CHIEF WHARFINGER, Physician Stop, Routine Patient Discharge Condition Stable Discharge Disposition Discharge home with family??member Patient Education Acute Back Pain, Adult Chronic Migraine Headache, Sntf-rd-Qamx Follow Up With When Contact Information Hermes Ramirez MD Within [address] [place] [address], [address] [place] [phone]- Additional Instructions: Continue other home medications. ??Return to ED [...] (05/08/2020)???Mammogram (2020)??? delivery???cyst removal from [place]???liver transplant Allergies NSAIDs Toradol??(Kidney failure as a complication of care) aspirin??(Medication interaction) azithromycin??(Unknown) codeine??(Unknown, Itching) gentamicin erythromycin??(Medication interaction) Social History Alcohol Never Electronic Cigarette/Vaping Electronic Cigarette Use: Never. Substance Use Never Tobacco Current everyday tobacco user Tobacco Use:.- Comments: Pt states that she smokes half a pack a day. Family History Cancer: Mother. Attending Attestation Follow-up with PCP Electronically Signed on 02/24/23 04:47 PM Jesus Khan MD Patient Care team information Care Team Personnel Name: Jessee Jones ASSEMBLY MEMBER Position: Physician Member Role: Nurse Practitioner Address: Address: [address] [place] [address], [address] Name: Latoya Marquez NP Position: Physician Member Role: Nurse Practitioner Address: Address: [address] [place] [address] Name: Leonila Gonzalez NP Position: Physician Member Role: Nurse Practitioner Address: Address: [address] [place] [address]- Name: Beth Brandt NP Position: Physician Member Role: Nurse Practitioner Address: Address: [address] [place] [address] Name: Hermes Ramirez MD Position: Physician Member Role: Primary Care Physician Address: Address: [address] [place] [address], [address] Name: Anamika Gore MD Position: Physician - Women's Health Member Role: Informed Provider Name: Pillo Moe ASSEMBLY MEMBER Position: Physician Member Role: Nurse Practitioner Address: Address: [address] [place] [address], [address] [facility] Name: Gia Underwood RN Position: Nurse Member Role: ED Nurse Name: Jesus Khan MD Position: Physician Member Role: Admitting Physician Address: Address: [address] [place] [address] [place] [address]- Care Team Related Persons Name: STACIA JONES Address: Home [address] [place] [phone] Name: ROBNY JAMA
--- OUTSIDE RECORDS SUMMARY | 2024-03-20 11:42 | XMS_ITS | Continuity of Care Document ---
Author Organization Formerly [facility], [facility] Address [address] [place] [address] Care Team Providers Care Ply Splicer Name Role Phone Hermes Ramirez Primary Care Physician Encounter ONOFRE MCGRAW [id number] Date(s): 10/13/21 - 10/13/[address] [address] Encounter Diagnosis Migraine headache(Discharge Diagnosis) - 10/13/21 [...] hr, # 20 tab, 0 Refill(s), Pharmacy: [facility] [place], [place], 73, cm, 09/13/21 23:53:00 CDT, Height/Length [...] wheezing, # 6.7 g, 0 Refill(s), Pharmacy: [facility] [place], [place], 73, cm, 09/13/21 23:53:00 CDT, Height/Length Dosing, [...] TID, # 21 cap, 0 Refill(s), Pharmacy: [facility] [place], [place], 157, cm, 09/27/21 22:29:00 CDT, Height/Length Dosing, 73, kg, 09/27/21 22:29:00 CDT, Weight Dosing Start Date: 09/27/21 Stop Date: 10/04/21 Status: Ordered codeine-guaifenesin 7.5 mg-225 mg/5 mL oral liquid 7.5 mL, Oral, every 6 hr, PRN as needed for cough, # 120 mL, 0 Refill(s), Pharmacy: [facility] [place], 73, cm, 09/13/21 23:53:00 CDT, Height/Length Dosing, 157, kg, 09/13/21 23:53:00 CDT, Weight Dosing Start Date: 09/14/21 Status: Ordered Diflucan 150 mg oral tablet 150 mg = 1 tab, Oral, Once, # 1 tab, 0 Refill(s), Pharmacy: [facility] [place], 73, cm,09/13/21 23:53:00 CDT, Height/Length Dosing, 157, [...] BID, # 180 tab, 3 Refill(s), Pharmacy: [place], [place], 157, cm, 10/22/20 21:26:00 CDT, Height/Length [...] # 20 tab, 0 Refill(s), Pharmacy: [facility] [place], 157, cm, 09/29/21 23:03:00 CDT, Height/Length Dosing, [...] Oral [35.8-37.3 Deg C] 36.9 Deg C (10/13/21 10:14 PM) Peripheral Pulse Rate [60-100 bpm] 71 bp m (10/13/21 11:18 PM) 72 bpm (10/13/21 10:14 PM) Respiratory Rate [12-24 br/min] 16 br/mi n (10/13/21 11:18 PM) 16 br/min (10/13/21 10:14 PM) Blood Pressure [90-140/60-90 mmHg] 120/7 6mmHg (10/13/21 11:18 PM) 116/64mmHg (10/13/21 10:14 PM) Mean Arterial Pressure, Cuff [65-140 mmH g] 91 mmHg (10/13/21 11:18 PM) Weight Dosing 74.84 kg (10/13/21 11:18 PM) Weight Estimated 74.84 kg (10/13/21 10:14 PM) Height/Length Dosing 157.500 cm (10/13/21 11:18 PM) Height/Length Estimated 157.500 cm (10/13/21 10:14 PM) Social History Social History Type Response Smoking Status 5-9 cigarettes (betw een 1/4 to 1/2 pack)/day in last 30 days entered on: 05/12/21 Sex Hospital Discharge Instructions Patient Education 10/13/2021 22:27:33 Migraine Headache, Zlnd-ft-Kseh Migraine Headache A migraine headache is a [...] these instructions at home: Medicines ??? Take suwz-trh-veitavs and prescription medicines only as told by your doctor. ??? Ask your doctor if the medicine prescribed to you: ??? Requires you to avoid driving or using heavy machinery. ??? Can cause trouble pooping (constipation). You may need to take these steps to prevent or treat trouble pooping: ??? Drink enough fluid to keep your pee (urine) pale yellow. ??? Take dfrx-jgn-xqkcoft or prescription medicines. ??? Eat foods that [...] Reviewed: 04/18/2019 Elsevier Patient Education ?? 2020 [employer] Follow Up Care 10/13/2021 22:13:57 With:Hermes Ramirez MD Address: [address] [place] [address], [address] [place] [address]- When:3 to 5 days Comments:Continue other home medications. Care Team Personnel Name: Hermes Ramirez MD Address: [address] [place] [address], [address] [place] [address]
--- OUTSIDE RECORDS SUMMARY | 2024-03-20 11:42 | XMS_ITS | Continuity of Care Document ---
Author Organization [facility] Address [address] [place] [address]- Care Team Providers Care Software Developer Manager Name Role Phone Hermes Ramirez Primary Care Physician Encounter ONOFRE MARILUZ [id number] Date(s): 04/14/21 - 04/14/21 [facility] [place] [address], [place] [address] Discharge Disposition: Home or Self Care Attending Physician: Jessee Jones EMERGENCY NURSE Allergies, Adverse Reactions, Alerts Substance Reaction Severity [...] BID, # 180 tab, 3 Refill(s), Pharmacy: [place], [place], 157, cm, 10/22/20 21:26:00 CDT, Height/Length [...]
--- OUTSIDE RECORDS SUMMARY | 2024-03-20 11:42 | XMS_ITS | Continuity of Care Document ---
Author Organization [facility] Address [address] [place] [address]- Care Team Providers Care Lan Analyst Name Role Phone Hermes Ramirez Primary Care Physician Encounter ONOFRE MCGRAW [id number] Date(s): 01/11/23 - 01/11/23 [facility] [address], [place] [address] Discharge Disposition: Home or Self Care Attending Physician: Jessee Jones INTERNET SALES MANAGER Allergies, Adverse Reactions, Alerts Substance Reaction Severity [...] Complete 2+ Views Right 07/04/22 Functional Status 01/11/23 Other exposure to Infectious Disease Non e [...] Daily, # 30 tab, 11 Refill(s), Pharmacy: [place], [place], 157.[address], cm, 01/04/23 15:03:00 CDT, Height/Length [...] BID, # 60 cap, 11 Refill(s), Pharmacy: [place], [place], 157.[address], cm, 01/04/23 15:03:00 CDT, Height/Length [...] 1 Temperature Tympanic [36.6-37.9 Deg C] 3 6.7 Deg C (01/11/23 4:12 PM) Peripheral Pulse Rate [60-100 bpm] 100 b pm (01/11/23 4:12 PM) Respiratory Rate [12-24 br/min] 20 br/mi n (01/11/23 4:12 PM) Blood Pressure [90-140/60-90 mmHg] 130/6 8mmHg (10/25/23 4:12 PM) Mean Arterial Pressure, Cuff [65-140 mmH g] 89 mmHg (01/11/23 4:12 PM) Weight 90.54 kg (01/11/23 4:12 PM) Weight Measured (lbs) 199.606 lb (01/11/23 4:12 PM) Social History Social History Type Response Tobacco Current everyday tob acco user Tobacco Use:. Sex Patient Care team information Care Team Personnel Name: Jessee Jones INTERNET SALES MANAGER Position: Physician Member Role: Nurse Practitioner Address: Address: [address] [place] [address], [address] [place] [address]- Name: Latoya Marquez INTERNET SALES MANAGER Position: Physician Member Role: Nurse Practitioner Address: Address: [address] [place] [address]- Name: Leonila Gonzalez INTERNET SALES MANAGER Position: Physician Member Role: Nurse Practitioner Address: Address: [address] [place] [address] Name: Beth Brandt INTERNET SALES MANAGER Position: Physician Member Role: Nurse Practitioner Address: Address: [address] [place] [address] Name: Hermes Ramirez MD Position: Physician Member Role: Primary Care Physician Address: Address: [address] [place] [address], [address] Name: Anamika Gore MD Position: Physician - Women's Health Member Role: Informed Provider Name: Pillo Moe INTERNET SALES MANAGER Position: Physician Member Role: Nurse Practitioner Address: Address: [address] [place] [address], [address] [facility] Care Team Related Persons Name: STACIA JONES Address: Home [address] [place], [place] [id number] Name: ROBYN JAMA
--- OUTSIDE RECORDS SUMMARY | 2024-03-20 11:42 | XMS_ITS | Continuity of Care Document ---
Author Organization [facility] Address [address] [place] [address]- Care Team Providers Care Line Worker Name Role Phone Hermes aRmirez Primary Care Physician Encounter ONOFRE MARILUZ [id number] Date(s): 09/05/22 - 09/05/22 [facility] [address], [place] [address] Encounter Diagnosis Edema(Discharge Diagnosis) - 09/05/22 Obesity(Discharge Diagnosis) - 09/05/22 Discharge Disposition: Home or Self Care Attending Physician: Jessee Jones FINISHING TECHNICIAN Allergies, Adverse Reactions, Alerts Substance Reaction Severity [...] wheezing, # 6.7 g, 0 Refill(s), Pharmacy: [place], [place], 73, cm, 09/13/21 23:53:00 CDT, Height/Length Dosing, 157, kg, 09/13/21 23:53:00 CDT, Weight Dosing Start Date: 09/14/21 Status: Ordered amLODIPine 5 mg oral tablet 5 mg = 1 tab, Oral, Daily, # 30 tab, 0 Refill(s), Pharmacy: [place], [place], 157, cm, 08/14/22 15:06:00 CDT, Height/Length [...] needed, # 12 cap, 0 Refill(s), Pharmacy: [place], [place], 157, cm, 11/04/21 20:02:00 CDT, Height/Length [...] BID, # 60 cap, 0 Refill(s), Pharmacy: [place], [place], 157, cm, 08/14/22 15:06:00 CDT, Height/Length [...] nausea/vomiting, # 20 tab, 0 Refill(s), Pharmacy: [place], [place], 157, cm, 09/29/21 23:03:00 CDT, Height/Length [...] Oral [35.8-37.3 Deg C] 37.1 Deg C (09/05/22 10:58 AM) Peripheral Pulse Rate [60-100 bpm] 81 bp m (09/05/22 10:58 AM) Respiratory Rate [12-24 br/min] 18 br/mi n (09/05/22 10:58 AM) Blood Pressure [90-140/60-90 mmHg] 132/7 0mmHg (09/05/22 10:59 AM) Weight 86.1 kg (09/05/22 10:58 AM) Social History Social History Type Response Tobacco Current everyday tob acco user Tobacco Use:. Sex Physician Outpatient Note * Jessee Jones FINISHING TECHNICIAN: PERFORM Event Display: Office Clinic Note Physician Authored Date: [id number] MISHA JACKSON :1980 Age:41 years Sex:Female Visit Date:09/05/2022 Primary Care Physician: Hermes Ramirez MD Chief Complaint Pt reports ankles and legs swelling x 1 month. History of Present Illness Patient presents to the clinic today with complaints of her ankles and leg swelling over the past month.?? Patient spoke with her??liver transplant team??out of [place] and they decreased her amlodipine from 10 mg to 5 mg.?? They also??increased her metoprolol from 50 mg twice daily to 100 mg twice daily.?? Patient just started this on Monday.?? She has no swelling today in the clinic.?? Patient reports that she usually gets a swelling later in the day.?? Patient also reports difficulty with losing weight. ??She does report that she is going to Dr. Paiz??in [place]??to see about getting??injections and hormone pellets. ??She reports that she has an appointment with him on the of this month.?? Patient does not feel as though she gets a large amount of sodium in her diet.?? She also does not feel like she is getting many calories.?? She is needing medication refills??due to the change. Review of Systems Constitutional:?No??fevers,?No??chills.?? Difficulty losing weight. ENT:?No??ear pain,?No??nasal congestion,?No??sore throat,??No??runny nose Respiratory:?No??shortness of breath,?No??cough Cardiovascular:?No??Chest pain.?? Lower leg swelling bilaterally??later in the day.?? No swelling currently. Gastrointestinal:?Nonausea,?No??vomiting,?No??diarrhea Musculoskeletal:??No??muscle pain Integumentary:?No??rash Neurologic:??Alert & oriented X 4 Physical Exam Vitals & Measurements T:??37.1?C ??(Oral)?? HR:??81??(Peripheral)?? RR:??18?? BP:??132/70?? SpO2:??98%?? WT:??86.1??kg?General: ??Patient is alert and oriented to person, [...] or murmurs. ??No S3 or S4 heard. ??No edema noted. ?? Abdomen: ??Bowel sounds present and active. ??No tenderness upon palpation.?? Assessment/Plan 1.??Edema??R60.9 Med dose changes??as below per [facility]'s recommendation.?? Will request a chart note.?? Will have patient??keep??a log??of everything she eats and drinks??to check??her calories and her sodium intake.?? Patient will also monitor her bp and HR a couple times a day and return with a log. 2.??Obesity??E66.9 As above. Orders: amLODIPine 5 mg oral tablet, 5 mg = 1 tab, Oral, Daily, # 30 tab, 0 Refill(s), Pharmacy: [place], [place], 157, cm, 08/14/22 15:06:00 CDT, Height/Length Dosing, 81, kg, 08/14/22 15:06:00 CDT, Weight Dosing metoprolol succinate 100 mg oral capsule, extended release, 100 mg = 1 cap, Oral, BID, # 60 cap, 0 Refill(s), Pharmacy: [facility], [place], 157, cm, 08/14/22 15:06:00 CDT, Height/Length Dosing, 81, kg, 08/14/22 15:06:00 CDT, Weight Dosing Problem List/Past Medical History [...] puffs, Inhale, every 4 hr, PRN amLODIPine 5 mg oral tablet, 5 mg= [...] 1 tab, Oral, every 6 hr, PRN predniSONE 20 mg oral tablet, 40 mg= 2 tab, Oral, Once Remeron, 7.5 mg, Oral, Daily sirolimus 2 mg oral tablet, 2 mg= [...] (Tdap) adult/adol 05/25/2012 Recorded Electronically Signed on 09/05/22 08:42 PM Jessee Jones FINISHING TECHNICIAN Patient Care team information Care Team Personnel Name: Jessee Jones NP Position: Physician Member Role: Nurse Practitioner Address: Address: [address] [place] [address], [address] [place] [address] Name: Latoya Marquez NP Position: Physician Member Role: Nurse Practitioner Address: Address: [address] [place] [address]- Name: Leonila Gonzalez FINISHING TECHNICIAN Position: Physician Member Role: Nurse Practitioner Address: Address: [address] [place] [address]- Name: Beth Brandt FINISHING TECHNICIAN Position: Physician Member Role: Nurse Practitioner Address: Address: [address] [place] [address] Name: Hermes Ramirez MD Position: Physician Member Role: Informed Provider Address: Address: [address] [facility], [address] [place] [address]- Name: Pillo Moe NP Position: Physician Member Role: Nurse Practitioner Address: Address: [address] [place] [address], [address] [facility] Care Team Related Persons Name: STACIA JONES Address: Home [address] [place], [place] [id number] Name: ROBYN JAMA Address: Home
--- OUTSIDE RECORDS SUMMARY | 2024-03-20 11:42 | XMS_ITS | Continuity of Care Document ---
Author Organization [facility] Address [address] [place] [address] Care Team Providers Care Scaffold Worker Name Role Phone Hermes Ramirez Primary Care Physician Encounter [facility] [id number] Date(s): 01/02/23 - 01/02/[address] [address] [place] Discharge Disposition: Home or Self Care Attending Physician: Jan Tinoco MD Admitting Physician: Jan Tinoco MD Allergies, Adverse Reactions, Alerts Substance Reaction [...] Daily, # 30 tab, 0 Refill(s), Pharmacy: [place], [place], 157, cm, 12/17/22 0:09:00 CDT, Height/Length [...] BID, # 60 cap, 0 Refill(s), Pharmacy: [place], [place], 157, cm, 12/17/22 0:09:00 CDT, Height/Length [...] liver transplant Complete d 1normal 2normal Results Radiology Reports * Exam Date Time Procedure Performing Provider Status 01/02/23 4:55 PM XR Foot Complete 3+ Views Right Luciana Huitron RT(R)(ARRT); Auth (Verified) Notes: (XR Foot Complete 3+ Views Right) Reason For Exam: pain and injury XR Foot Complete 3+ Views Right EXAM DESCRIPTION: XR Foot Complete 3+ Views Right REASON FOR STUDY: M79.671 M25.559, pain and injury TECHNIQUE: 3 radiographic view(s) of the right foot . COMPARISON: Correlation is made with right ankle radiographs performed 07/08/2014 FINDINGS: No fracture or dislocation is seen. There is dorsal soft tissue swelling in the foot. There is no radiopaque foreign body. IMPRESSION: No acute osseous abnormality. Soft tissue swelling. THIS IS AN ELECTRONICALLY VERIFIED FINAL REPORT 01/02/2023 4:54 PM - Electronically signed by Judson Arcos M.D. JR: Report ID: [id number] Reading Location: [place] [address] Final Dictated by: Judson Arcos DT/TM: 01/02/2023 4:57 pm Signed by: Judson Arcos MD Signed (Electronic Signature): 01/02/2023 4:57 pm Social History Social History Type Response Tobacco Current everyday tob acco user Tobacco Use:. Sex Patient Care team information Care Team Personnel Name: Jessee Jones TEST LEAD APPLICATION TESTING Position: Physician Member Role: Nurse Practitioner Address: Address: [address] [place] [address], [address] [place] [address] Name: Latoya Marquez TEST LEAD APPLICATION TESTING Position: Physician Member Role: Nurse Practitioner Address: Address: [address] [place] [address] Name: Leonila Gonzalez TEST LEAD APPLICATION TESTING Position: Physician Member Role: Nurse Practitioner Address: Address: [address] [place] [address]- Name: Beth Brandt NP Position: Physician Member Role: Nurse Practitioner Address: Address: [address] [place] [address] Name: Hermes Ramirez MD Position: Physician Member Role: Primary Care Physician Address: Address: [address] [place] [address], [address] Name: Anamika Gore MD Position: Physician - Women's Health Member Role: Informed Provider Name: Pillo Moe TEST LEAD APPLICATION TESTING Position: Physician Member Role: Nurse Practitioner Address: Address: [address] [place] [address], [address] [facility] Care Team Related Persons Name: STACIA JONES Address: Home [address], [place] [id number] Name: ROBYN JAMA
--- OUTSIDE RECORDS SUMMARY | 2024-03-20 11:42 | XMS_ITS | Continuity of Care Document ---
Author Organization [facility] Address [address] [place] [address] Care Team Providers Care Sound Art Instructor Name Role Phone Hermes Ramirez Primary Care Physician [phone] Encounter ONOFRE MCGRAW [id number] Date(s): 10/21/21 - 10/21/[address] [address] [place] Encounter Diagnosis Headache, migraine, intractable(Discharge Diagnosis) - 10/21/21 Discharge Disposition: Home or Self Care Attending Physician: Jesus Khan MD Admitting Physician: Jesus Khan MD Allergies, Adverse Reactions, Alerts Substance Reaction Severity Status codeine Unknown Itching Severe Active gentamicin Moderate Active erythromycin Medication interaction Activ e azithromycin Unknown Severe Active aspirin Medication interaction Severe Activ e Toradol Kidney failure as a complication of care Severe Active NSAIDs Severe Active Functional Status 10/21/21 Family Member Travel History No recent t [...] wheezing, # 6.7 g, 0 Refill(s), Pharmacy: [facility] [place], [place], 73, cm, 09/13/21 23:53:00 CDT, Height/Length [...] BID, # 180 tab, 3 Refill(s), Pharmacy: [place], [place], 157, cm, 10/22/20 21:26:00 CDT, Height/Length [...] nausea/vomiting, # 20 tab, 0 Refill(s), Pharmacy: [place], [place], 157, cm, 09/29/21 23:03:00 CDT, Height/Length [...] Start Date: 10/13/21 Status: Ordered Mental Status 10/21/21 Eye Opening Response Yanira Spontaneous ly Best Verbal Response [place] Oriented Best Motor Response [place] Obeys comman ds Yanira Coma Score 15 Problem List Condition Effective [...] Pulse Rate [60-100 bpm] 99 bp m (10/21/21 9:19 PM) Respiratory Rate [12-24 br/min] 18 br/mi n (10/21/21 9:19 PM) Blood Pressure [90-140/60-90 mmHg] 134/7 7mmHg (10/21/21 9:19 PM) Weight 73.00 kg (10/21/21 9:19 PM) Weight Dosing 73.00 kg (10/21/21 9:23 PM) Height 157.000 cm (10/21/21 9:19 PM) Height/Length Dosing 157.000 cm (10/21/21 9:23 PM) Social History Social History Type Response Smoking Status 5-9 cigarettes (betw een 1/4 to 1/2 pack)/day in last 30 days entered on: 05/12/21 Sex Hospital Discharge Instructions Patient Education 10/21/2021 21:44:12 Migraine Headache, Emqk-tc-Nyli Migraine Headache A migraine headache is a [...] these instructions at home: Medicines ??? Take vtsh-dwa-domimhk and prescription medicines only as told by your doctor. ??? Ask your doctor if the medicine prescribed to you: ??? Requires you to avoid driving or using heavy machinery. ??? Can cause trouble pooping (constipation). You may need to take these steps to prevent or treat trouble pooping: ??? Drink enough fluid to keep your pee (urine) pale yellow. ??? Take labh-ytj-datpnmx or prescription medicines. ??? Eat foods that [...] Reviewed: 04/18/2019 Elsevier Patient Education ?? 2020 [employer] Follow Up Care 10/21/2021 21:19:23 With:Hermes Ramirez MD Address: [address] [place] [address], [address] [place] [address]- When:3 to 5 days Comments:Continue other home medications.?? Return to ED if symptoms worsen Patient Care team information Personnel Name: Hermes Ramirez MD Address: Address: [address] [place] [address], [address] [place] [address]
--- OUTSIDE RECORDS SUMMARY | 2024-03-20 11:42 | XMS_ITS | Continuity of Care Document ---
Author Organization [facility] Address [address] [place] [address] Care Team Providers Care Clinical Documentation Nurse Name Role Phone Hermes Ramirez Primary Care Physician [phone] Encounter RANDY MCGRAW [id number] Date(s): 10/30/23 - 10/30/23 [place] [address] [place] [address]- [place] Discharge Disposition: Home or Self Care Attending Physician: Greta Paul DO Admitting Physician: Greta Paul DO Allergies, Adverse Reactions, Alerts Substance Reaction Severity Status codeine Unknown Itching Severe Active gentamicin Moderate Active azithromycin Unknown Severe Active NSAIDs Severe Active erythromycin Medication interaction Activ e aspirin Medication interaction Severe Activ e morphine 1 redness Itching Mild Active Toradol Kidney failure as a complication of care Severe Active 1localized reaction at iv site Assessment and Plan Future Appointments Diagnostic Tests Pending * Cyclosporine, Blood LC-MS/MS LC 10/30/23 Future Scheduled Tests Radiology* MG Mammo Diagnostic [...] Daily, # 30 tab, 11 Refill(s), Pharmacy: [facility] [place], [place], 157.[address], cm, 01/04/23 15:03:00 CDT, Height/Length Dosing, 81.65, kg, 01/04/23 15:03:00 CDT, Weight Dosing Start Date: 01/11/23 Status: Ordered aspirin 81 mg oral delayed release tablet 81 mg = 1 tab, Oral, Daily, # 30 tab, 0 Refill(s) Start Date: 04/05/21 Status: Ordered gabapentin 300 mg oral capsule 600 mg = 2 cap, Oral, BID, # 120 cap, 2 Refill(s), Pharmacy: [id number] [place], 157.48, cm, 07/23/23 17:59:00 CDT, Height, [...] # 60 cap, 11 Refill(s), Pharmacy: [facility] [place], [place], 157.48, cm, 01/04/23 15:03:00 CDT, Height/Length Dosing, 81.65, kg, 01/04/23 15:03:00 CDT, Weight Dosing Start Date: 01/11/23 Status: Ordered Nicotrol Inhaler 10 mg inhalation device See Instructions, 6-16 cartriges/day, # 1 EA, 2 Refill(s), [id number], 157.48, cm, 08/29/23 14:22:00 CDT, Height, 88, kg, 08/29/23 14:27:00 CDT, Weight Dosing Start Date: 08/29/23 Status: Ordered pantoprazole 40 mg oral delayed release tablet 1 tab, Oral, Daily, # 90 tab, 0 Refill(s), Pharmacy: [id number], 157.48, cm, 06/07/23 16:07:00 CDT, Height, 89.36, [...] QID, # 360 tab, 0 Refill(s), [facility]acy: [id number], 157.48, cm, 08/29/23 14:22:00 CDT, Height, 88, kg, 08/29/23 14:27:00 CDT, Weight Dosing Start Date: 09/05/23 Status: Ordered venlafaxine 37.5 mg oral capsule, extended release 37.5 mg = 1 cap, Oral, Daily, # 90 cap, 0 Refill(s), Pharmacy: [id number] [place], 157.48, cm, 08/29/23 14:22:00 CDT, Height, 88, [...] 2 08/24/23 Completed Screening Pap Smear; Allison armirez, Preparing And Conveyance Of Cervical/Vaginal Smear To Laboratory 3 07/2022 Completed Examining eye 2021 Completed Bladder washout 12/14/20 Completed Kidney transplant 05/13/20 Complet ed Tx - Liver transplantation 05/08/20 Completed delivery Complet ed cyst removal from breast Completed Hernia Completed liver transplant Complete d 03/09/23 repeat in 6 months 2normal 3normal Results Laboratory List Name Date Automated Diff 10/30/23 CBC w/ Diff 10/30/23 Comprehensive Metabolic Panel 10/30/23 Most recent to oldest [Reference Range]: 1 WBC [4.0-11.5 K/mcL] 6.2 K/mcL (10/30/23 6:22 AM) RBC [4.20-5.40 x10^6/mcL] 4.01 x10^6/mcL *LOW* (10/30/23 6:22 AM) Neutro Auto 70.2 % *NA* (10/30/23 6:22 AM) Lymph Auto 14.9 % *NA* (10/30/23 6:22 AM) Manati Auto 11.1 % *NA* (10/30/23 6:22 AM) Basophil Auto 0.3 % *NA* (10/30/23 6:22 AM) BUN [7-18 mg/dL] 19 mg/dL *HI* (10/30/23 6:22 AM) Glucose Level [70-110 mg/dL] 98 mg/dL (10/30/23 6:22 AM) Potassium Level [3.5-5.1 mmol/L] 3.9 mmo l/L (10/30/23 6:22 AM) Baso Absolute [0.0-0.1 x10^3/mcL] 0.0 x1 0^3/mcL (10/30/23 6:22 AM) MCV [78.0-100.0 fL] 98.5 fL (10/30/23 6:22 AM) AST [15-37 unit/L] 26 unit/L (10/30/23 6: AM) ALT [12-78 unit/L] 41 unit/L (10/30/23 6: AM) MCHC [29.0-37.5 g/dL] 34.9 g/dL (10/30/23: AM) Sodium Level [136-145 mmol/L] 142 mmol/L (10/30/23 6: AM) Lymph Absolute [0.8-5.8 x10^3/mcL] 0.9 x 10^3/mcL (10/30/23: AM) Hct [36.0-48.0 %] 39.5 % (10/30/23: AM) Calcium Level [8.5-10.1 mg/dL] 8.4 mg/dL *LOW* (10/30/23: AM) Manati Absolute [0.1-1.5 x10^3/mcL] 0.7 x1 0^3/mcL (10/30/23: AM) Albumin Level [3.4-5.0 g/dL] 2.9 g/dL *LOW* (10/30/23: AM) Protein Total [6.4-8.2 g/dL] 6.5 g/dL (10/30/23 6:22 AM) MCH [27.0-34.0 pg] 34.4 pg *HI* (10/30/23: AM) Neutro Absolute [1.5-8.1 x10^3/mcL] 4.4 x10^3/mcL (10/30/23 6:22 AM) Bilirubin Total [0.0-1.0 mg/dL] 0.5 mg/d L (10/30/23: AM) Hgb [12.0-16.0 g/dL] 13.8 g/dL (10/30/23 6:22 AM) Alk Phos [46-130 unit/L] 310 unit/L *HI* (10/30/23: AM) MPV [6.0-10.0 fL] 11.1 fL *HI* (10/30/23 6:22 AM) Platelets [150-450 K/mcL] 125 K/mcL *LOW* (10/30/23 6:22 AM) CO2 [21-32 mmol/L] 19 mmol/L *LOW* (10/30/23 6:22 AM) Eos Absolute [0.0-0.5 x10^3/mcL] 0.2 x10 ^3/mcL (10/30/23 6:22 AM) Chloride Level [97-107 mmol/L] 112 mmol/ L *HI* (10/30/23 6:22 AM) RDW-CV [11.5-15.0 %] 12.3 % (10/30/23 6:22 AM) Imm Gran Absolute [0.0-0.1 x10^3/mcL] 0. 0 x10^3/mcL (10/30/23 6:22 AM) Imm Gran Auto 0.3 % *NA* (10/30/23 6:22 AM) NRBC Auto 0.0 % *NA* (10/30/23 6:22 AM) NRBC Absolute [0.0-0.0 x10^3/mcL] 0.0 x1 0^3/mcL (10/30/23 6:22 AM) Slide Review Not Indicated (10/30/23 6:22 AM) Creatinine Level [0.60-1.30 mg/dL] 1.72 mg/dL 1 *HI* (10/30/23 6:22 AM) Anion Gap [5-15 mmol/L] 15 mmol/L (10/30/23 6:22 AM) Eos, Auto 3.2 % *NA* (10/30/23 6:22 AM) eGFR CKD-EPI 38 mL/min/1.73 m2 *NA* (10/30/23 6:22 AM) 1Interpretive Data: Association of GFR and [...] information Care Team Personnel Name: Jessee Jones CERTIFIED NOVELL ENGINEER Position: Physician Member Role: Nurse Practitioner Address: Address: [address] [place] [address], [address] [place] [address]- Name: Latoay Marquez CERTIFIED NOVELL ENGINEER Position: Physician Member Role: Nurse Practitioner Address: Address: [address] [place] [address]- Name: Leonila Gonzalez CERTIFIED NOVELL ENGINEER Position: Physician Member Role: Nurse Practitioner Address: Address: [address] [place] [address]- Name: Beth Brandt CERTIFIED NOVELL ENGINEER Position: Physician Member Role: Nurse Practitioner Address: Address: [address] Name: Hermes Ramirez MD Position: Physician Member Role: Informed Provider Address: Address: [address] [facility], [address] [place] [address]- Name: Pillo Moe CERTIFIED NOVELL ENGINEER Position: Physician Member Role: Nurse Practitioner Address: Address: [address] [facility], [address] [facility] Care Team Related Persons Name: STACIA JONES Address: Home [address] [id number] Name: ROBYN JAMA Name: NAIF CHOI Name: MADY CHEN Name: MADY CHEN
--- OUTSIDE RECORDS SUMMARY | 2024-03-20 11:42 | XMS_ITS | Continuity of Care Document ---
Author Organization [facility] Address [address] [place] [address]- Care Team Providers Care Coverer Name Role Phone Hermes Ramierz Primary Care Physician [phone] Encounter ONOFRE MCGRAW [id number] Date(s): 11/02/22 - 11/02/22 [facility] [place] [address] [place], [place] [address] Discharge Disposition: Home Allergies, Adverse Reactions, Alerts [...] Daily, # 30 tab, 0 Refill(s), Pharmacy: [place], [place], [address], cm, 09/10/22 15:23:00 CDT, Height/Length [...] BID, # 60 cap, 0 Refill(s), Pharmacy: [place], [place], [address], cm, 09/10/22 15:23:00 CDT, Height/Length [...] information Care Team Personnel Name: Jessee Jones INTERNIST MEDICAL DOCTOR MD Position: Physician Member Role: Nurse Practitioner Address: Address: [address] [place] [address], [address] [place] [address]- Name: Latoya Marquez INTERNIST MEDICAL DOCTOR MD Position: Physician Member Role: Nurse Practitioner Address: Address: [address] [place] [address]- Name: Leonila Gonzalez INTERNIST MEDICAL DOCTOR MD Position: Physician Member Role: Nurse Practitioner Address: Address: [address] [place] [address]- Name: Beth Brandt INTERNIST MEDICAL DOCTOR MD Position: Physician Member Role: Nurse Practitioner Address: Address: [address] [place] [address] Name: Hermes Ramirez MD Position: Physician Member Role: Informed Provider Address: Address: [address] [facility], [address] [place] [address]- Name: Pillo Moe NP Position: Physician Member Role: Nurse Practitioner Address: Address: [address] [place] [address], [address] [facility] Care Team Related Persons Name: STACIA JONES Address: Home [address] [place], [place] [id number] Name: ROBYN JAMA Address: Home
--- OUTSIDE RECORDS SUMMARY | 2024-03-20 11:42 | XMS_ITS | Continuity of Care Document ---
Author Organization [facility] Address [address] [place] [address] Care Team Providers Care Real Estate Paralegal Name Role Phone Hermes Ramirez Primary Care Physician Encounter RAYNHAM MARILUZ [id number] Date(s): 02/10/23 - 02/10/[address] [address]- [place] Encounter Diagnosis Lumbar back sprain(Discharge Diagnosis) - 02/10/23 Back pain(Discharge Diagnosis) - 02/10/23 Discharge Disposition: Home or Self Care Attending [...] Daily, # 30 tab, 11 Refill(s), Pharmacy: [place], [place], [address], cm, 01/04/23 15:03:00 CDT, Height/Length Dosing, 81.65, kg, 01/04/23 15:03:00 CDT, Weight Dosing Start Date: 01/11/23 Status: Ordered aspirin 81 mg oral delayed release tablet 81 mg = 1 tab, Oral, Daily, # 30 tab, 0 Refill(s) Start Date: 04/05/21 Status: Ordered cyclobenzaprine 10 mg oral tablet 10 mg = 1 tab, Oral, TID, PRN as needed for muscle spasm, X 10 days, # 30 tab, 0 Refill(s), :54:00 PM JACKAROO, Pharmacy: [place], [place], [address], cm, 02/10/23 20:49:00 JACKAROO, Height, 82, kg, 02/10/23 20:49:00 JACKAROO, Weight Dosing Start Date: 02/10/23 Stop Date: 02/20/23 Status: Ordered gabapentin 300 mg oral capsule [...] BID, # 60 cap, 11 Refill(s), Pharmacy: [place], [place], [address], cm, 01/04/23 15:03:00 CDT, Height/Length [...] Oral [35.8-37.3 Deg C] 36.8 Deg C (02/10/23 8:38 PM) Peripheral Pulse Rate [60-100 bpm] 107 b pm *HI* (02/10/23 8:38 PM) Respiratory Rate [12-24 br/min] 18 br/mi n (02/10/23 8:38 PM) Blood Pressure [90-140/60-90 mmHg] 168/1 06mmHg *HI* (02/10/23 8:38 PM) Mean Arterial Pressure, Cuff [70-110 mmH g] 127 mmHg *>HHI* (02/10/23 8:38 PM) Weight Dosing 82.00 kg (02/10/23 8:49 PM) Weight Estimated 82.00 kg (02/10/23 8:38 PM) Height 157.000 cm (02/10/23 8:49 PM) Height/Length Estimated 157.000 cm (02/10/23 8:38 PM) Social History Social History Type Response Tobacco Current everyday tob acco user Tobacco Use:. Sex Hospital Discharge Instructions Patient Education 02/10/2023 20:54:13 Back Injury Prevention, Mfkw-fi-Vids Back Injury Prevention Back injuries can be very painful. They can also be difficult to heal. After having one back injury, you are more likely to have another one. It is important to learn how to avoid injuring or re-injuring your back. The following tips can help you prevent a back injury. What actions can I take to prevent back injuries? Changes in your diet Talk with your doctor about what to eat. Some foods can help make the bones strong. ??? Talk with your doctor about how much calcium and vitamin D you need each day. These nutrients help to prevent weakening of the bones (osteoporosis). ??? Eat foods that have calcium. These include: ??? Dairy products. ??? Green leafy vegetables. ??? Food and drinks that have calcium added to them (are fortified). ??? Eat foods that have vitamin D. These include: ??? Milk. ??? Food and drinks that have vitamin D added to them. ??? If needed, take supplements and vitamins as told by your doctor. Physical fitness Physical fitness makes your bones and muscles strong. It also improves your balance and strength. ??? Exercise for 30 minutes a day on most days of the week, or as told by your doctor. Make sure to: ??? Do aerobic exercises, such as walking, jogging, biking, or swimming. ??? Do exercises that increase balance and strength, such as krista chi and yoga. ??? Do stretching exercises. ??? Develop strong belly (abdominal) muscles. Your belly muscles help to support your back. ??? Stay at a healthy weight. This lowers your risk of a back injury. Good posture Prevent back injuries by developing and keeping a good posture. To do this: ??? Sit up straight and stand up straight. Avoid leaning forward when you sit or hunching over whenyou stand. ??? Choose chairs that have good low-back (lumbar) support. ??? If you work at a desk: ??? Sit close to it so you do not need to lean over. ??? Keep your chin tucked in. ??? Keep your neck drawn back. ??? Keep your elbows bent so that your arms make a corner (right angle). ??? When you drive: ??? Sit high and close to the steering wheel. Add low-back support to your car seat, if needed. ??? Take breaks every hour if you are driving for long periods of time. ??? Avoid sitting or standing in one position for very long. Take breaks to get up, stretch, and walk around at least once every hour. ??? Sleep on your side with your knees slightly bent, or sleep on your back with a pillow under your knees. ??? Keep your head and neck in a straight line with your spine (neutral position) when using electronics like smartphones or tablets. To do this: ??? Raise your smartphone or tablet to look at it instead of bending your head or neck to look down. ??? Put the smartphone or tablet at the level of your face while looking at the screen. Lifting, twisting, and reaching ??? Heavy lifting ??? Avoid heavy lifting, especially lifting over and over again. If you must do heavy lifting: ??? Stretch before lifting. ??? Work slowly. ??? Rest between lifts. ??? Use a tool such as a cart or a jaime to move objects. ??? Make a few small trips instead of carrying one heavy load. ??? Ask for help when you need it, especially when moving big objects. ??? Follow these steps when lifting: ??? Stand with your feet shoulder-width apart. ??? Get as close to the object as you can. Do not picker box operator a heavy object that is far from your body. ??? Use handles or lifting straps if you have them. ??? Bend at your knees. Squat down, but keep your heels off the floor. ??? Keep your shoulders back. Keep your chin tucked in. Keep your back straight. ??? Lift the object slowly while you tighten the muscles in your legs, belly, and butt. Keep the object as close to the center of your body as you can. ??? Follow these steps when putting down a heavy load: ??? Stand with your feet shoulder-width apart. ??? Lower the object slowly while you tighten the muscles in your legs, belly, and butt. Keep the object as close to the center of your body as you can. ??? Keep your shoulders back. Keep your chin tucked in. Keep your back straight. ??? Bend at your knees. Squat down, but keep your heels off the floor. ??? Use handles or lifting straps if you have them. ??? Twisting and reaching ??? Avoid lifting heavy objects above your waist. ??? Do not twist at your waist while you are lifting or carrying a load. If you need to turn, move your feet. ??? Do not bend over without bending at your knees. ??? Avoid reaching over your head, across a table, or for an object on a high surface. Other things to do ??? Avoid wet floors and icy ground. Keep sidewalks clear of ice to prevent falls. ??? Do not sleep on a mattress that is too soft or too hard. ??? Put heavier objects on shelves at waist level. Put forming process worker objects on lower or higher shelves. ??? Find ways to lower your stress, such as: ??? Exercise. ??? Massage. ??? Using a technique to help you relax. ??? Talk with your doctor if you feel worried or sad (depressed). These conditions can make back pain worse. ??? Wear flat heeled shoes with cushioned soles. ??? Use both shoulder straps when carrying a backpack. ??? Do not smoke or use any products that contain nicotine or tobacco. If you need help quitting, ask your doctor. Summary ??? Back injuries can be very painful and difficult to heal. ??? You can keep your back healthy by making certain changes. These include eating foods that make bones strong, working on being physically fit, developing a good posture, and lifting heavy objects in a safe way. ??? Talk with your doctor about how much calcium and vitamin D you need each day. These nutrients help to prevent weakening of the bones (osteoporosis). This information is not intended to replace advice given to you by your health care provider. Make sure you discuss any questions you have with your health care provider. Document Revised: 06/28/2021 Document Reviewed: 06/28/2021 [employer] Patient Education ?? 2022 [employer]. Follow Up Care 02/10/2023 20:38:30 With:Hermes Ramirez MD Address: [address] [place] [address]- When:3 to 5 days Patient Care team information Care Team Personnel Name: Jessee Jones PATIENT REGISTRATION SUPERVISOR Position: Physician Member Role: Nurse Practitioner Address: Address: [address] [place] [address], [place] [address]- Name: Latoya Marquez PATIENT REGISTRATION SUPERVISOR Position: Physician Member Role: Nurse Practitioner Address: Address: [address] [place] [address] Name: Leonila Gonzalez PATIENT REGISTRATION SUPERVISOR Position: Physician Member Role: Nurse Practitioner Address: Address: [address] [place] [address] [place] Name: Beth Brandt PATIENT REGISTRATION SUPERVISOR Position: Physician Member Role: Nurse Practitioner Address: Address: [address] [place] [id number] [place] Name: Hermes Ramirez MD Position: Physician Member Role: Primary Care Physician Address: Address: [address] [facility], [address] [place] [address]- Name: Anamika Gore MD Position: Physician - Women's Health Member Role: Informed Provider Name: Pillo Moe NP Position: Physician Member Role: Nurse Practitioner Address: Address: [address] [facility], [address] [place], [place] Name: Maryam Cortés MD Position: Physician Member Role: ED Physician Address: Address: [address] [place] [address] [place] [address]- Name: Carson Hood RN Position: Nurse Member Role: ED Nurse Care Team Related Persons Name: STACIA JONES Address: Home [facility] [place], [place] [id number] Name: ROBYN AJMA
--- OUTSIDE RECORDS SUMMARY | 2024-03-20 11:42 | XMS_ITS | Continuity of Care Document ---
Author Organization [facility] Address [address] [place] [address] Care Team Providers Care Drier And Grinder Tender Name Role Phone Hermes Ramirez Primary Care Physician [phone] Encounter ONOFREEver MCGRAW [id number] Date(s): 11/16/22 - 11/16/[address] [address]- [place] Encounter Diagnosis Headache, chronic migraine without aura, intractable(Discharge Diagnosis) - 11/16/22 Discharge Disposition: Home or Self Care Attending [...] Daily, # 30 tab, 0 Refill(s), Pharmacy: [place], [place], 157, cm, 09/10/22 15:23:00 CDT, Height/Length [...] BID, # 60 cap, 0 Refill(s), Pharmacy: [place], [place], [address], cm, 09/10/22 15:23:00 CDT, Height/Length [...] Oral [35.8-37.3 Deg C] 36.9 Deg C (11/16/22 4:32 PM) Peripheral Pulse Rate [60-100 bpm] 80 bp m (11/16/22 4:32 PM) Respiratory Rate [12-24 br/min] 18 br/mi n (11/16/22 4:32 PM) Blood Pressure [90-140/60-90 mmHg] 148/8 1mmHg *HI* (11/16/22 4:32 PM) Weight 79.38 kg (11/16/22 4:32 PM) Weight Dosing 79.38 kg (11/16/22 4:37 PM) Height 157.480 cm (11/16/22 4:32 PM) Height/Length Dosing 157.480 cm (11/16/22 4:37 PM) Body Mass Index 32.000 kg/m2 (11/16/22 4:32 PM) Social History Social History Type Response Tobacco Current everyday tob acco user Tobacco Use:. Sex Hospital Discharge Instructions Patient Education 11/16/2022 16:55:37 Chronic Migraine Headache, Imhn-sh-Dweh Chronic Migraine Headache A migraine headache is [...] these instructions at home: Medicines ??? Take vufv-ojs-hewbbuz and prescription medicines only as told by [...] Headache and Migraine Patients (CHAMP): headachemigraine.org ??? [place] Migraine Foundation: americanmigrainefoundation.org ??? National Headache Foundation: [...] provider. Document Revised: 04/22/2020 Document Reviewed: 04/22/2020 [employer] Patient Education ?? 2022 [employer] Follow Up Care 11/16/2022 16:32:48 With:Hermes Ramirez MD Address: [address] [place] [address], [address] [place] [id number]- When:1 week Comments:Continue other home medications.?? Follow-up with neurologist. Physician Emergency department Note * Jesus Khan MD: PERFORM Event Display: ED Note Physician Authored Date: [id number] MISHA JACKSON :1980 Age:42 years Sex:Female Visit Date:11/16/2022 Primary Care Physician: Hermes Ramirez MD Basic Information Time Seen: Jesus Khan MD / 11/16/2022 16:38 Chief Complaint migraine since last night. tylenol approx 1200 with no relief. current pain 7/10 History Of Present Illness: 42 years old female??comes in complaining of migraine headache started last night.?? She has chronic??migraines.?? Has a tendency of frequent ER visits??for her migraines almost??weekly.?? Last visitwas??11/10/2022.?? Has multiple medical problems.?? 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 She is under care of transplant team from [facility]. Review of Systems: Constitutional:?No??fevers,?No??chills,?No??sweats Eye:?No??recent visual problems ENT:?No??ear pain,?No??nasal congestion,?No??sore throat Respiratory:?No??shortness of breath,?No??cough Cardiovascular:?No??Chest pain,?No??palpitations,?No??syncope Gastrointestinal:?Nonausea,?No??vomiting,?No??diarrhea Genitourinary:?No??hematuria Clemente/Lymph:?No??bruising tendency,?No??swollen lymph glands Endocrine:?No??excessive thirst,??No??excessive hunger Musculoskeletal:??No??back pain,??No??neck pain,??No??joint pain,??No??muscle pain,??No??decreased range of motion Integumentary:?No??rash,?No??pruritus,?No??abrasions Neurologic: Alert & oriented X 4 Psychiatric:?No??anxiety,?No??depression Physical Exam Vitals & Measurements T:??36.9?C ??(Oral)?? HR:??80??(Peripheral)?? RR:??18?? BP:??148/81?? SpO2:??100%?? HT:??157.480??cm?? WT:??79.38??kg?? BMI:??32.000?? Pain Score:??7?? O2 Therapy:??Room air?? General: Alert [...] Assessment/Plan 1.??Headache, chronic migraine without aura, intractable??G43.719 Orders: Benadryl, 50 mg = 1 mL, IM, Injection, Once, First Dose: 11/16/22 17:00:00 CDT, Stop Date: 11/16/2316:00:00 CDT, Physician Stop, Routine Phenergan, 25 mg = 1 mL, IM, Injection, Once, First Dose: 11/16/22 17:00:00 CDT, Stop Date: 11/16/22 17:00:00 CDT, Physician Stop, Routine Chronic??recurrent migraine headaches.?? Follow-up with PCP. Patient Discharge Condition Stable Discharge Disposition Discharge home Patient Education Chronic Migraine Headache, Lhlw-go-Ghif Follow Up With When Contact Information Hermes Ramirez MD Within [address] [place] [id number]- Additional Instructions: Continue other home medications.?? Follow-up with neurologist. Medication Reconciliation Unchanged amLODIPine (amLODIPine 5 mg [...] Attestation Follow-up with PCP Electronically Signed on 11/16/22 04:56 PM Jesus Khan MD Patient Care team information Care Team Personnel Name: Jessee Jones CENTRAL SCHEDULER Position: Physician Member Role: Nurse Practitioner Address: Address: [address] [place] [address], [address] Name: Latoya Marquez CENTRAL SCHEDULER Position: Physician Member Role: Nurse Practitioner Address: Address: [address] [place] [address] Name: Leonila Gonzalez CENTRAL SCHEDULER Position: Physician Member Role: Nurse Practitioner Address: Address: [address] [place] [address] Name: Beth Brandt CENTRAL SCHEDULER Position: Physician Member Role: Nurse Practitioner Address: Address: [address] [place] [address] Name: Hermes Ramirez MD Position: Physician Member Role: Informed Provider Address: Address: [address] [place] [address], [address] [place] [address]- [place] Name: Pillo Moe NP Position: Physician Member Role: Nurse Practitioner Address: Address: [address] [place] [address], [address] [facility] Name: Jesus Khan MD Position: Physician Member Role: Admitting Physician Address: Address: [address] [place] [address] [place] [address]- Name: Chaya Wei RN Position: Nurse Member Role: ED Nurse Care Team Related Persons Name: STACIA JONES Address: Home [address] [place], [place] [id number] Name: ROBYN JAMA Address: Home
--- OUTSIDE RECORDS SUMMARY | 2024-03-20 11:42 | XMS_ITS | Continuity of Care Document ---
Author Organization [facility] Address [address] [place] [address] Care Team Providers Care Box Toe Flanger Stitchdowns Name Role Phone Hermes Ramirez Primary Care Physician [phone] Encounter ONOFRE MCGRAW [id number] Date(s): 12/10/21 - 12/10/[address] [address] Encounter Diagnosis Headache, migraine, intractable(Discharge Diagnosis) - 12/10/21 Otalgia of right ear(Discharge Diagnosis) - 12/10/21 Discharge Disposition: Home or Self Care Attending [...] 0 Refill(s), Pharmacy: [facility] - [place], [place], 73, cm, 09/13/21 23:53:00 CDT, Height/Length [...] needed, # 12 cap, 0 Refill(s), Pharmacy: [place], [place], 157, cm, 11/04/21 20:02:00 CDT, Height/Length Dosing, 73, kg, 11/04/21 20:02:00 CDT, Weight Dosing Start Date: 11/04/21 Status: Ordered cefaclor 500 mg oral tablet, extended release 500 mg = 1 tab, Oral, BID, # 20 tab, 0 Refill(s), Pharmacy: [place], [place], 157, cm, 11/18/21 23:46:00 CDT, Height/Length Dosing, 73, kg, 11/18/21 23:46:00 CDT, Weight Dosing Start Date: 11/19/21 Stop Date: 11/29/21 Status: Ordered Fioricet with Codeine 50 mg-300 mg-40 mg-30 mg oral capsule 1 cap, Oral, every 4 hr, PRN as needed, # 12 cap, 0 Refill(s), Pharmacy: [place], [place], 157.48, cm, 11/29/21 8:04:00 CDT, Height/Length [...] BID, # 180 tab, 3 Refill(s), Pharmacy: [facility] [place], 157, cm, 10/22/20 21:26:00 CDT, Height/Length Dosing, [...] nausea/vomiting, # 12 tab, 0 Refill(s), Pharmacy: [place], [place], [address], cm, 11/04/21 20:02:00 CDT, Height/Length [...] nausea/vomiting, # 20 tab, 0 Refill(s), Pharmacy: [place], [place], 157, cm, 09/29/21 23:03:00 CDT, Height/Length [...] Oral [35.8-37.3 Deg C] 36.8 Deg C (12/10/21 9:22 PM) Peripheral Pulse Rate [60-100 bpm] 104 b pm *HI* (12/10/21 9:22 PM) Respiratory Rate [12-24 br/min] 20 br/mi n (12/10/21 9:22 PM) Blood Pressure [90-140/60-90 mmHg] 133/9 1mmHg (12/10/21 9:22 PM) Weight 72.00 kg (12/10/21 9:22 PM) Weight Dosing 72.00 kg (12/10/21 9:40 PM) Height 157.000 cm (12/10/21 9:22 PM) Height/Length Dosing 157.000 cm (12/10/21 9:40 PM) Social History Social History Type Response Tobacco Current everyday tob acco user Tobacco Use:. Sex Hospital Discharge Instructions Patient Education 12/10/2021 21:47:18 Ear Drops, Adult, Jafw-vm-Yjwn Ear Drops, Adult Your doctor has found [...] cannot use soap and water, use hand hospice art therapist. 2. Make sure your ears are clean [...] cannot use soap and water, use hand hospice art therapist. Follow these instructions at home: ??? Use [...] provider. Document Revised: 01/01/2020 Document Reviewed: 01/01/2020 [employer] Patient Education ?? 2021 Jimmy Fairly. 12/10/2021 21:47:15 Chronic Migraine Headache, Qgws-ys-Hxcx Chronic Migraine Headache A migraine headache is [...] these instructions at home: Medicines ??? Take brtu-nlx-tapspqi and prescription medicines only as told by [...] Headache and Migraine Patients (CHAMP): headachemigraine.org ??? [place] Migraine Foundation: americanmigrainefoundation.org ??? National Headache Foundation: [...] ?? 2021 [employer] Follow Up Care 12/10/2021 21:22:28 With:Follow up with specialist Address: When:3 to 5 days Comments:EENT??follow-up??with regards to your chronic right ear pain and infection Patient Care team information Personnel Name: Hermes Ramirez MD Address: Address: [address] [place] [address], [address] [place], [place] [address]
--- OUTSIDE RECORDS SUMMARY | 2024-03-20 11:42 | XMS_ITS | Continuity of Care Document ---
Author Organization [facility] Address [address] [place] [address] Care Team Providers Care Stucco Applicator Name Role Phone Hermes Ramirez Primary Care Physician [phone] Encounter [facility] MARILUZ [id number] Date(s): 08/16/23 - 08/16/[address] [address]- [place] Encounter Diagnosis Migraine headache(Discharge Diagnosis) - 08/16/23 Acute low back pain(Discharge Diagnosis) - 08/16/23 Discharge Disposition: Home or Self Care Attending [...] Daily, # 30 tab, 11 Refill(s), Pharmacy: [place], [place], 157.[address], cm, 01/04/23 15:03:00 CDT, Height/Length Dosing, 81.65, kg, 01/04/23 15:03:00 CDT, Weight Dosing Start Date: 01/11/23 Status: Ordered aspirin 81 mg oral delayed release tablet 81 mg = 1 tab, Oral, Daily, # 30 tab, 0 Refill(s) Start Date: 04/05/21 Status: Ordered gabapentin 300 mg oral capsule 600 mg = 2 cap, Oral, BID, # 120 cap, 2 Refill(s), Pharmacy: [facility] [place], 157.48, cm, 07/23/23 17:59:00 CDT, Height, 88.45, [...] BID, # 60 cap, 11 Refill(s), Pharmacy: [place], [place], [address], cm, 01/04/23 15:03:00 CDT, Height/Length Dosing, 81.65, kg, 01/04/23 15:03:00 CDT, Weight Dosing Start Date: 01/11/23 Status: Ordered pantoprazole 40 mg oral delayed release tablet 1 tab, Oral, Daily, # 90 tab, 0 Refill(s), Pharmacy: [facility], 157.48, cm, 06/07/23 16:07:00 CDT, Height, 89.36, [...] QID, # 360 tab, 0 Refill(s), Pharmacy: [id number], 157.48, cm, 06/07/23 16:07:00 CDT, Height, 89.36, [...] Oral [35.8-37.3 Deg C] 36.9 Deg C (08/16/23 4:20 PM) Peripheral Pulse Rate [60-100 bpm] 74 bp m (08/16/23 4:20 PM) Respiratory Rate [12-24 br/min] 20 br/mi n (08/16/23 4:20 PM) Blood Pressure [90-140/60-90 mmHg] 142/8 9mmHg *HI* (08/16/23 4:20 PM) Mean Arterial Pressure, Cuff [65-140 mmH g] 107 mmHg (08/16/23 4:20 PM) Weight 81.65 kg (08/16/23 4:20 PM) Weight Dosing 81.650 kg (08/16/23 4:20 PM) Height 157.48 cm (08/16/23 4:20 PM) Body Mass Index 32.92 kg/m2 (08/16/23 4:20 PM) Social History Social History Type Response Tobacco Current everyday tob acco user Tobacco Use:. 1 Sex 1Pt states that she smokes half a pack a day. Hospital Discharge Instructions Patient Education 08/16/2023 18:32:45 Migraine Headache, Ofvy-cr-Sqqt Migraine Headache A migraine headache is a [...] these instructions at home: Medicines ??? Take mood-abw-haecyai and prescription medicines only as told by your doctor. ??? Ask your doctor if the medicine prescribed to you: ??? Requires you to avoid driving or using heavy machinery. ??? Can cause trouble pooping (constipation). You may need to take these steps to prevent or treat trouble pooping: ??? Drink enough fluid to keep your pee (urine) pale yellow. ??? Take fvav-qap-zuygppw or prescription medicines. ??? Eat foods that [...] Reviewed: 04/18/2019 [employer] Patient Education ?? 2022 [employer] Follow Up Care 08/16/2023 16:17:57 With:1. Follow-up with your MD this week 2. Follow-up with the pain clinic as recommended 3. Follow-up with neurology this week or JENNI. Address:Unknown When:1 month Patient Care team information Care Team Personnel Name: Jessee Jones ASSOCIATE PROGRAMMER Position: Physician Member Role: Nurse Practitioner Address: Address: [address] [place] [address], [address] Name: Latoya Marquez ASSOCIATE PROGRAMMER Position: Physician Member Role: Nurse Practitioner Address: Address: [address] [place] [address]- Name: Leonila Gonzalez ASSOCIATE PROGRAMMER Position: Physician Member Role: Nurse Practitioner Address: Address: [address] [place] [address]- Name: Beth Brandt ASSOCIATE PROGRAMMER Position: Physician Member Role: Nurse Practitioner Address: Address: [address] [place] [address] Name: Hermes Ramirez MD Position: Physician Member Role: Informed Provider Address: Address: [address] [place] [address], [address] [place] [address]- Name: Pillo Moe NP Position: Physician Member Role: Nurse Practitioner Address: Address: [address] [place] [address], [address] [facility] Care Team Related Persons Name: STACIA JONES Address: Home [address] [id number] Name: NAIF CHOI Name: MADY CHEN
--- OUTSIDE RECORDS SUMMARY | 2024-03-20 11:42 | XMS_ITS | Continuity of Care Document ---
Author Organization [facility] Address [address] [place] [address]- Care Team Providers Care Heavy Equipment Supervisor Name Role Phone Hermes Ramirez Primary Care Physician [phone] Encounter RANDY MCGRAW [id number] Date(s): 01/01/24 - 01/01/24 [facility] [address] [place], [place] [address] Encounter Diagnosis Headache(Discharge Diagnosis) - 01/01/24 Right knee pain(Discharge Diagnosis) - 01/01/24 Dental infection(Discharge Diagnosis) - 01/01/24 Discharge Disposition: Home or Self Care Attending [...] from: Title:Office Visit Note Author:Philip Ramirez MD Date:01/01/24 Depression Screen?? PHQ 2?? Little Interest - Pleasure in Activities: Not at all Feeling Down, Depressed, Hopeless: Not at all Initial Depression Screen Score: 0 Score Assessment/Plan 1.??Right knee pain??M25.561 ??Patient with continued right knee pain status post injury 10 days ago after a fall.?? Will order MRI to??assess the internal structures of the knee. Ordered: amoxicillin 875 mg oral tablet, 875 mg = 1 tab, Oral, BID, # 14 tab, 0 Refill(s), [id number], 157.48, cm, 01/01/24 14:49:00 CDT, Height, 87.09, kg, 01/01/24 14:53:00 CDT, Weight Dosing nicotine 21 mg/24 hr transdermal film, extended release, 1 patches, Transdermal, Daily, # 14 patches, 1 Refill(s), [id number], 157.48, cm, 01/01/24 14:49:00 CDT, Height, 87.09, kg, 01/01/24 14:53:00 CDT, Weight Dosing MRI Knee w/o Contrast Right, 01/01/24, Routine, Reason: s/p injury 10 days ago, No, No, Transport Mode: Ambulatory, Right knee pain ?? 2.??Dental infection??K04.7 ??Will give amoxicillin??for dental infection.?? I recommend she see her dentist. ?? Headache??R51.9 Ordered: Influenza A/B ([facility]) POC (RE), 01/01/24 14:59:00 CDT, Stop date 01/01/24 14:59:00 CDT, Headache SARS-CoV-2 (COVID-19) AG ([facility]) POC (RE), 01/01/24 14:59:00 CDT, Stop date 01/01/24 14:59:00 CDT, Headache Strep A ([facility]) POC (RE), 01/01/24 14:58:00 CDT, Stop date 01/01/24 14:58:00 CDT, Headache ?? Future Appointments Future Scheduled Tests Radiology* MRI Knee w/o Contrast Right 01/01/24 * MG Mammo Diagnostic Bilateral w/ Chad 02/23/24 * US Breast Limited Left 02/23/24 Functional Status 01/01/24 Other exposure to Infectious Disease Non e [...] Daily, # 30 tab, 11 Refill(s), Pharmacy: [place], [place], 157.48, cm, 01/04/23 15:03:00 CDT, Height/Length Dosing, 81.65, kg, 01/04/23 15:03:00 CDT, Weight Dosing Start Date: 01/11/23 Status: Ordered amoxicillin 875 mg oral tablet 875 mg = 1 tab, Oral, BID, # 14 tab, 0 Refill(s), [facility] [place], 157.48, cm, 01/01/24 14:49:00 CDT, Height, 87.09, [...] # 120 cap, 2 Refill(s), [facility]: [facility] [place], 157.48, cm, 07/23/23 17:59:00 CDT, Height, 88.45, [...] BID, # 60 cap, 11 Refill(s), [facility] [place] [place], 157.48, cm, 01/04/23 15:03:00 CDT, Height/Length Dosing, 81.65, kg, 01/04/23 15:03:00 CDT, Weight Dosing Start Date: 01/11/23 Status: Ordered nicotine 21 mg/24 hr transdermal film, extended release 1 patches, Transdermal, Daily, # 14 patches, 1 Refill(s), [facility]acy: [id number], 157.48, cm, 01/01/24 14:49:00 CDT, Height, 87.09, kg, 01/01/24 14:53:00 CDT, Weight Dosing Start Date: 01/01/24 Status: Ordered Nicotrol Inhaler 10 mg inhalation device See Instructions, 6-16 cartriges/day, # 1 EA, 2 Refill(s), Pharmacy: [id number], 157.48, cm, 08/29/23 14:22:00 CDT, Height, 88, kg, 08/29/23 14:27:00 CDT, Weight Dosing Start Date: 08/29/23 Status: Ordered pantoprazole 40 mg oral delayed release tablet 1 tab, Oral, Daily, # 90 tab, 0 Refill(s), [facility], 157.48, cm, 06/07/23 16:07:00 CDT, Height, 89.36, [...] QID, # 360 tab, 0 Refill(s), [facility]: [id number], 157.48, cm, 08/29/23 14:22:00 CDT, Height, 88, kg, 08/29/23 14:27:00 CDT, Weight Dosing Start Date: 09/05/23 Status: Ordered venlafaxine 37.5 mg oral capsule, extended release 37.5 mg = 1 cap, Oral, Daily, # 90 cap, 0 Refill(s), [facility]acy: [id number][facility] [place], 157.48, cm, 09/28/23 18:18:00 CDT, Height, [...] 2normal 3normal Results Laboratory List Name Date Influenza A/B ([facility]) POCT 01/01/24 SARS-CoV-2 (Covid-19) AG ([facility]) POCT Strep A ([facility]) POCT 01/01/24 Most recent to oldest [Reference Range]: 1 SARS-CoV or CoV-2 (COVID-19) Ag ([facility]) Negative *NA* (01/01/24 3:07 PM) Employed in healthcare? No *NA* (01/01/24 3:07 PM) Symptomatic as defined by CDC? Yes *NA* (01/01/24 3:07 PM) Date of onset (Lab) 01-JAN-2024 *NA* (01/01/24 3:07 PM) Hospitalized due to COVID-19? No *NA* (01/01/24 3:07 PM) In ICU? No *NA* (01/01/24 3:07 PM) Group care resident? No *NA* (01/01/24 3:07 PM) status? Unknown *NA* (01/01/24 3:07 PM) Influenza A ([facility]) POCT Negative *NA* (01/01/24 3:09 PM) Influenza B ([facility]) POCT Negative *NA* (01/01/24 3:09 PM) Strep A ([facility]) POCT Negative *NA* (01/01/24 3:07 PM) Vital Signs Most recent to oldest [Reference Range]: 1 Temperature Tympanic [36.6-38.1 Deg C] 3 7.2 Deg C (01/01/24 2:49 PM) Peripheral Pulse Rate [60-100 bpm] 88 bp m (01/01/24 2:49 PM) Blood Pressure [90-120/60-80 mmHg] 120/8 0mmHg (01/01/24 2:49 PM) Mean Arterial Pressure, Cuff [65-140 mmH g] 93 mmHg (01/01/24 2:49 PM) Weight 87.09 kg (01/01/24 2:49 PM) Weight Measured (lbs) 192 lb (01/01/24 2:49 PM) Weight Dosing 87.090 kg (01/01/24 2:49 PM) Height 157.48 cm (01/01/24 2:49 PM) Height/Length Measured (inches) 62 inch (01/01/24 2:49 PM) BSA Measured 1.95 m2 (01/01/24 2:49 PM) Body Mass Index 35.12 kg/m2 (01/01/24 2:49 PM) Social History Social History Type Response Tobacco Current everyday tob acco user Tobacco Use:. Sex Sex Representation Female (finding) Physician Outpatient Note * Hermes Ramirez MD: PERFORM Event Display: Office Clinic Note Physician Authored Date: [id number] MISHA JACKSON :1980 Age:43 years Sex:Female Visit Date:01/01/2024 Primary Care Physician: Hermes Ramirez MD Chief Complaint Patient here for fall injuries Right knee/back for 10 days, Right tooth pain for 2 days c/o headache and nasal stuffiness wants strep testing History of Present Illness MISHA JACKSON??is a??43 Years??old??Female??presenting today with??Chief Complaint: Patient here for fall injuries Right knee/back for 10 days, Right tooth pain for 2 daysc/o headache and nasal stuffiness wants strep testing (01/01/24 14:49:00).?X-rays in the emergency room were negative.??She continues to have severe pain and sometimes falls due to the pain.The knee feels unstable to her. Review of Systems Constitutional:?No??fevers Respiratory:?No??shortness of breath Cardiovascular:?No??Chest pain Gastrointestinal:?No??abd pain Physical Exam Vitals & Measurements T:??37.2?C ??(Tympanic)?? HR:??88??(Peripheral)?? BP:??120/80?? SpO2:??99%?? HT:??157.48??cm?? WT:??87.09??kg?? BMI:??35.12?? BSA:??1.95?? General: Alert and oriented, well nourished,?No??acute distress Lungs: Clear to auscultation,?Non-labored?? respiration Heart:?Normal? rate,?Regular??rhythm,?No??murmur,?No??gallop MS:??Pain on palpation of the knee??over the patella??and over the lateral joint lines as well.?? Pain with stress on the meniscus.?? She is able to walk. HEENT:??No obvious erythema or drainage??of the teeth. ??Slight right facial swelling. Depression Screen?? PHQ 2?? Little Interest - Pleasure in Activities: Not at all Feeling Down, Depressed, Hopeless: Not at all Initial Depression Screen Score: 0 Score Assessment/Plan 1.??Right knee pain??M25.561 ??Patient with continued right knee pain status post injury 10 days ago after a fall.?? Will order MRI to??assess the internal structures of the knee. Ordered: amoxicillin 875 mg oral tablet, 875 mg = 1 tab, Oral, BID, # 14 tab, 0 Refill(s), [facility]: [id number], 157.48, cm, 01/01/24 14:49:00 CDT, Height, 87.09, kg, 01/01/24 14:53:00 CDT, Weight Dosing nicotine 21 mg/24 hr transdermal film, extended release, 1 patches, Transdermal, Daily, # 14 patches, 1 Refill(s), [facility]acy: [id number], 157.48, cm, 01/01/24 14:49:00 CDT, Height, 87.09, kg, 01/01/24 14:53:00 CDT, Weight Dosing MRI Knee w/o Contrast Right, 01/01/24, Routine, Reason: s/p injury 10 days ago, No, No, Transport Mode: Ambulatory, Right knee pain ?? 2.??Dental infection??K04.7 ??Will give amoxicillin??for dental infection.?? I recommend she see her dentist. ?? Headache??R51.9 Ordered: Influenza A/B ([facility]) POC (RE), 01/01/24 14:59:00 CDT, Stop date 01/01/24 14:59:00 CDT, Headache SARS-CoV-2 (COVID-19) AG ([facility]) POC (RE), 01/01/24 14:59:00 CDT, Stop date 01/01/24 14:59:00 CDT, Headache Strep A ([facility]) POC (RE), 01/01/24 14:58:00 CDT, Stop date 01/01/24 14:58:00 CDT, Headache ?? Future Orders MRI Knee w/o Contrast Right, 01/01/24, Routine, Reason: s/p injury 10 days ago, No, No, Transport Mode: Ambulatory, Right knee pain Problem List/Past Medical History Ongoing Acne [...] SARS-CoV or CoV-2 (COVID-19) Ag ([facility]) Negative 01/01/2024 15:07 CDT Electronically Signed on 01/01/2024 15:12 CDT Hermes Ramirez MD Patient Care team information Care Team Personnel Name: Jessee Jones AIRCRAFT DE ICER INSTALLER Position: Physician Member Role: Nurse Practitioner Address: [address] [facility], [address] Name: Latoya Marquez AIRCRAFT DE ICER INSTALLER Position: Physician Member Role: Nurse Practitioner Address: [address] Name: Leonila Gonzalez AIRCRAFT DE ICER INSTALLER Position: Physician Member Role: Nurse Practitioner Address: [address] [place] [address] Name: Beth Brandt AIRCRAFT DE ICER INSTALLER Position: Physician Member Role: Nurse Practitioner Address: [address] [place] [address] Name: Hermes Ramirez MD Position: Physician Member Role: Informed Provider Address: [address] [facility], [facility] [address] Name: Pillo Moe AIRCRAFT DE ICER INSTALLER Position: Physician Member Role: Nurse Practitioner Address: [address] [facility], [facility] [address] [facility] Care Team Related Persons Name: STACIA JONES Name: ROBYN JAMA Name: NAIF CHOI Name: MADY CHEN Name: MADY CHEN Insurance Providers Guarantor name: MISHA JACKSON Health Plan Information #: [address] [facility] MEDICAID MGD CARE Member Number: [id number] Policy Number: NA Health Plan Information #: 1 [facility] Workers Comp Member Number: [id number] Policy Number: MAGGIE Health Plan Information #: 3 Payer: [employer] APPROVED Member Number: NA Policy Number: NA"
--- OUTSIDE RECORDS SUMMARY | 2024-03-20 11:42 | XMS_ITS | Continuity of Care Document ---
Author Organization [facility] Address [address] [place] [address] Care Team Providers Care Dessert Cup Machine Feeder Name Role Phone Vijaynixon Hermes Perez Primary Care Physician Encounter ONOFRE MCGRAW [id number] Date(s): 05/13/22 - 05/13/22 [address] [place] [address] [place] [address] [place] Discharge Disposition: Home or Self Care [...] wheezing, # 6.7 g, 0 Refill(s), Pharmacy: [place], [place], 73, cm, 09/13/21 23:53:00 CDT, Height/Length [...] needed, # 12 cap, 0 Refill(s), Pharmacy: [place], [place], 157, cm, 11/04/21 20:02:00 CDT, Height/Length [...] 18:45:00CST, Height/Length Dosing, 72.57, kg, 02/07/22 18:45:00 BALLISTICS EXPERT, Weight Dosing Start Date: 02/13/22 Status: Ordered morphine 2 mg/mL preservative-free injectable solution 2 mg = 1 mL, IM, Once, 0 Refill(s) Start Date: 05/05/22 Status: Ordered oseltamivir 30 mg oral capsule 30 mg = 1 cap, Oral, BID, # 10 cap, 0 Refill(s), Pharmacy: [place], [place], 157.48, cm, 03/16/22 18:01:00 BALLISTICS EXPERT, Height/Length Dosing, 77.11, kg, 03/16/22 18:01:00 BALLISTICS EXPERT, Weight Dosing Start Date: 03/16/22 Status: Ordered [...] nausea/vomiting, # 20 tab, 0 Refill(s), Pharmacy: [place], [place], 157, cm, 09/29/21 23:03:00 CDT, Height/Length [...] information Care Team Personnel Name: Jessee Jones MANAGEMENT RECRUITER Position: Physician Member Role: Nurse Practitioner Address: Address: [address] [place] [address], [address] [place] [address]- Name: Latoya Marquez MANAGEMENT RECRUITER Position: Physician Member Role: Nurse Practitioner Address: Address: [address] [place] [address]- Name: Leonila Gonzalez MANAGEMENT RECRUITER Position: Physician Member Role: Nurse Practitioner Address: Address: [address] [place] [address]- Name: Beth Brandt MANAGEMENT RECRUITER Position: Physician Member Role: Nurse Practitioner Address: Address: [address] [place] [address] Name: Hermes Ramirez MD Position: Physician Member Role: Informed Provider Address: Address: [address] [place] [address], [address] [place] [address]- Name: Pillo Moe NP Position: Physician Member Role: Nurse Practitioner Address: Address: [address] [place] [address], [address] [facility] Care Team Related Persons Name: STACIA JONES Address: Home [address] [place], [place] [id number] Name: ROBYN JAMA Address: Home
--- OUTSIDE RECORDS SUMMARY | 2024-03-20 11:43 | XMS_ITS | Continuity of Care Document ---
Author Organization [facility] Address [address] [place] [address] Care Team Providers Care Operations Examiner Name Role Phone Hermes Ramirez Primary Care Physician Encounter ONOFRE MCGRAW [id number] Date(s): 12/15/21 - 12/15/[address] [address] Encounter Diagnosis Headache, migraine, intractable(Discharge Diagnosis) - 12/15/21 Discharge Disposition: Home or Self Care Attending Physician: Felicia Roach MD Admitting Physician: Felicia Roach MD Allergies, Adverse Reactions, Alerts Substance Reaction Severity Status codeine Unknown Itching Severe Active gentamicin Moderate Active erythromycin Medication interaction Activ e azithromycin Unknown Severe Active aspirin Medication interaction Severe Activ e Toradol Kidney failure as a complication of care Severe Active NSAIDs Severe Active Functional Status 12/15/21 Family Member Travel History No recent t [...] 0 Refill(s), Pharmacy: [facility] [place], [place], 73, cm, 09/13/21 23:53:00 CDT, Height/Length [...] needed, # 12 cap, 0 Refill(s), Pharmacy: [place], [place], 157, cm, 11/04/21 20:02:00 CDT, Height/Length Dosing, 73, kg, 11/04/21 20:02:00 CDT, Weight Dosing Start Date: 11/04/21 Status: Ordered cefaclor 500 mg oral tablet, extended release 500 mg = 1 tab, Oral, BID, # 20 tab, 0 Refill(s), Pharmacy: [place], [place], 157, cm, 11/18/21 23:46:00 CDT, Height/Length Dosing, 73, kg, 11/18/21 23:46:00 CDT, Weight Dosing Start Date: 11/19/21 Stop Date: 11/29/21 Status: Ordered Fioricet with Codeine 50 mg-300 mg-40 mg-30 mg oral capsule 1 cap, Oral, every 4 hr, PRN as needed, # 12 cap, 0 Refill(s), Pharmacy: [place], [place], 157.48, cm, 11/29/21 8:04:00 CDT, Height/Length [...] BID, # 180 tab, 3 Refill(s), Pharmacy: [place], [place], 157, cm, 10/22/20 21:26:00 CDT, Height/Length [...] nausea/vomiting, # 12 tab, 0 Refill(s), Pharmacy: [place], [place], 157, cm, 11/04/21 20:02:00 CDT, Height/Length [...] nausea/vomiting, # 20 tab, 0 Refill(s), Pharmacy: [facility] [place], [place], 157, cm, 09/29/21 23:03:00 CDT, Height/Length [...] [35.8-37.3 Deg C] 37 De g C (12/15/21 9:27 PM) Peripheral Pulse Rate [60-100 bpm] 76 bp m (12/15/21 10:10 PM) 109 bpm *HI* (12/15/21 9:27 PM) Respiratory Rate [12-24 br/min] 18 br/mi n (12/15/21 10:10 PM) 18 br/min (12/15/21 9:27 PM) Blood Pressure [90-140/60-90 mmHg] 143/9 4mmHg *HI* (12/15/21 10:10 PM) 164/105mmHg *HI* (12/15/21 9:27 PM) Weight 72.00 kg (12/15/21 9:27 PM) Weight Dosing 72.00 kg (12/15/21 9:34 PM) Height 157.000 cm (12/15/21 9:27 PM) Height/Length Dosing 157.000 cm (12/15/21 9:34 PM) Social History Social History Type Response Tobacco Current some day tob acco user Tobacco Use:. Sex Hospital Discharge Instructions Patient Education 12/15/2021 21:43:26 Chronic Migraine Headache, Biwe-xq-Ahly Chronic Migraine Headache A migraine headache is [...] these instructions at home: Medicines ??? Take fgxh-eet-dtpkruw and prescription medicines only as told by [...] Headache and Migraine Patients (CHAMP): headachemigraine.org ??? [place] Migraine Foundation: americanmigrainefoundation.org ??? National Headache Foundation: [...] ?? 2021 [employer] Follow Up Care 12/15/2021 21:27:05 With:Follow up with primary care provider Address: When:5 to 7 days Patient Care team information Personnel Name: Hermes Ramirez MD Address: [facility] [address] [place], [place] [address]
--- OUTSIDE RECORDS SUMMARY | 2024-03-20 11:43 | XMS_ITS | Continuity of Care Document ---
Author [facility] Address [address] [place] [address]- Care Team Providers Care Psych Sales Specialist Name Role Phone Hermes Ramirez Primary Care Physician [phone] Encounter ONOFRE MCGRAW [id number] Date(s): 03/01/22 - 03/01/22 [facility] [address], [place] [address] Encounter Diagnosis Skin change(Discharge Diagnosis) - 03/01/22 Discharge Disposition: Home or Self Care Attending Physician: Hermes Ramirez MD Allergies, Adverse Reactions, Alerts Substance Reaction Severity Status codeine Unknown Itching Severe Active gentamicin Moderate Active erythromycin Medication interaction Activ e aspirin Medication interaction Severe Activ e Toradol Kidney failure as a complication of care Severe Active NSAIDs Severe Active azithromycin Unknown Severe Active Assessment and Plan Future Scheduled Tests Laboratory* Comprehensive Metabolic Panel 02/18/22 Functional Status 03/01/22 Other exposure to Infectious Disease Non e [...] wheezing, # 6.7 g, 0 Refill(s), Pharmacy: [facility] [place], [place], 73, cm, 09/13/21 23:53:00 CDT, Height/Length [...] needed, # 12 cap, 0 Refill(s), Pharmacy: [facility] [place], [place], 157, cm, 11/04/21 20:02:00 CDT, Height/Length [...] BID, # 180 tab, 3 Refill(s), Pharmacy: [facility], 157.48, cm, 02/07/22 18:45:00CST, Height/Length Dosing, 72.57, kg, 02/07/22 18:45:00 LACEMAKER, Weight Dosing Start Date: 02/13/22 Status: Ordered [...] nausea/vomiting, # 20 tab, 0 Refill(s), Pharmacy: [facility] [place], [place], 157, cm, 09/29/21 23:03:00 CDT, Height/Length Dosing, 77, kg, 09/29/21 23:03:00 CDT, Weight Dosing Start Date: 09/29/21 Stop Date: 10/04/21 Status: Ordered predniSONE See Instructions, tapering dose, 0 Refill(s) Start Date: 03/01/22 Status: Ordered tacrolimus 1 mg oral capsule, [...] Oral [35.8-37.3 Deg C] 36.5 Deg C (03/01/22 10:39 AM) Peripheral Pulse Rate [60-100 bpm] 74 bp m (03/01/22 10:39 AM) Respiratory Rate [12-24 br/min] 18 br/mi n (03/01/22 10:39 AM) Blood Pressure [90-140/60-90 mmHg] 122/7 2mmHg (03/01/22 10:39 AM) Weight 81.65 kg (03/01/22 10:39 AM) Weight Measured (lbs) 180.007 lb (03/01/22 10:39 AM) Social History Social History Type Response Tobacco Current everyday tob acco user Tobacco Use:. Sex Reason for Referral new skin lesion, on high risk meds Referred by: Jessee Jones NP Patient Care team information Personnel Name: Hermes Ramirez MD Address: Address: [address] [place] [address], [address]
--- OUTSIDE RECORDS SUMMARY | 2024-03-20 11:43 | XMS_ITS | Continuity of Care Document ---
Author Organization [facility] Address [address] [place] [address] Care Team Providers Care Chemical Etching Processor Name Role Phone Hermes Ramirez Primary Care Physician Encounter ONOFREEver MCGRAW [id number] Date(s): 03/05/22 - 03/05/[address] [address] Encounter Diagnosis Intractable migraine(Discharge Diagnosis) - 03/05/22 Discharge Disposition: Home or Self Care Attending [...] Laboratory* Comprehensive Metabolic Panel 02/18/22 Functional Status 03/05/22 Family Member Travel History No recent t [...] wheezing, # 6.7 g, 0 Refill(s), Pharmacy: [place], [place], [address], cm, 09/13/21 23:53:00 CDT, Height/Length [...] needed, # 12 cap, 0 Refill(s), Pharmacy: [place], [place], [address], cm, 11/04/21 20:02:00 CDT, Height/Length [...] 18:45:00CST, Height/Length Dosing, 72.57, kg, 02/07/22 18:45:00 TECHNICAL SPECIALIST CYTOLOGY, Weight Dosing Start Date: 02/13/22 Status: Ordered morphine 2 mg = 0.5 mL, IM, Injection, Once, First Dose: 03/05/22 16:26:00 TECHNICAL SPECIALIST CYTOLOGY, Stop Date: 03/05/22 16:26:00CST, Physician Stop Start Date: 03/05/22 Stop Date: 03/05/22 Status: Completed morphine 4 mg/mL preservative-free injectable solution 2 [...] nausea/vomiting, # 20 tab, 0 Refill(s), Pharmacy: [place], [place], [address], cm, 09/29/21 23:03:00 CDT, Height/Length [...] [35.8-37.3 Deg C] 37 De g C (03/05/22 4:14 PM) Peripheral Pulse Rate [60-100 bpm] 83 bp m (03/05/22 4:14 PM) Respiratory Rate [12-24 br/min] 18 br/mi n (03/05/22 4:31 PM) 17 br/min (03/05/22 4:14 PM) Blood Pressure [90-140/60-90 mmHg] 137/8 4mmHg (03/05/22 4:31 PM) 137/84mmHg (03/05/22 4:14 PM) Weight Dosing 74.84 kg (03/05/22 6:57 PM) Weight Estimated 74.84 kg (03/05/22 4:14 PM) Height/Length Dosing 157.500 cm (03/05/22 6:57 PM) Height/Length Estimated 157.500 cm (03/05/22 4:14 PM) Social History Social History Type Response Tobacco Current everyday tob acco user Tobacco Use:. Sex Hospital Discharge Instructions Patient Education 03/05/2022 16:29:11 Chronic Migraine Headache, Eyfz-jn-Hznj Chronic Migraine Headache A migraine headache is [...] these instructions at home: Medicines ??? Take rfiw-olm-uljywvs and prescription medicines only as told by [...] provider. Document Revised: 04/22/2020 Document Reviewed: 04/22/2020 [employer] Patient Education ?? 2021 [employer]. 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 ??Same character as before Review of Systems: Constitutional:?No??fevers,?No??chills,?No??sweats Eye:?No??recent visual problems ENT:?No??ear pain,?No??nasal congestion,?No??sore throat Respiratory:?No??shortness of breath,?No??cough Cardiovascular:?No??Chest pain,?No??palpitations,?No??syncope Gastrointestinal:?Nonausea,?No??vomiting,?No??diarrhea Genitourinary:?No??hematuria Clemente/Lymph:?No??bruising tendency,?No??swollen lymph glands Endocrine:?No??excessive thirst,??No??excessive hunger Musculoskeletal:??No??back pain,??No??neck pain,??No??joint pain,??No??muscle pain,??No??decreased range of motion Integumentary:?No??rash,?No??pruritus,?No??abrasions Neurologic: Alert & oriented X 4 Psychiatric:?No??anxiety,?No??depression Physical Exam General: Alert and oriented, well nourished,?No??acute distress. ??Blood pressure is??101/72. ??Satting 100%. ??She is afebrile Eye: PERRL, EOMI,?Normal??conjunctiva HENT: Normocephalic, clear tympanic [...] Procedure No Qualifying Data Assessment/Plan 1.??Intractable migraine??G43.919 Advised to follow-up with PCP Orders: Benadryl, 50 mg = 1 mL, IM, Injection, Once, First Dose: 03/05/22 16:26:00 TECHNICAL SPECIALIST CYTOLOGY, Stop Date: 03/05/2216:26:00 TECHNICAL SPECIALIST CYTOLOGY, Physician Stop morphine, 2 mg = 0.5 mL, IM, Injection, Once, First Dose: 03/05/22 16:26:00 TECHNICAL SPECIALIST CYTOLOGY, Stop Date: 03/05/22 16:26:00 TECHNICAL SPECIALIST CYTOLOGY, Physician Stop Phenergan, 25 mg = 1 mL, IM, Injection, Once, First Dose: 03/05/22 16:26:00 TECHNICAL SPECIALIST CYTOLOGY, Stop Date: 03/05/22 16:26:00 TECHNICAL SPECIALIST CYTOLOGY, Physician Stop Patient Discharge Condition Stable Discharge Disposition Discharge to home Patient Education Chronic Migraine Headache, Cjwf-pv-Glml Follow Up With When Contact Information Follow [...] Milliliters Intramuscular (in a muscle) once. ?? predniSONEtapering dose. ?? promethazine (Phenergan 25 [...] Mother. Attending Attestation Stable Electronically Signed on 03/05/22 04:29 PM Felicia Roach MD Patient Care team information Personnel Name: Hermes Ramirez MD Address: Address: [facility] [address] [place], [place] [address]
--- OUTSIDE RECORDS SUMMARY | 2024-03-20 11:43 | XMS_ITS | Continuity of Care Document ---
Author Organization [facility] Address [address] [place] [address] Care Team Providers Care Hoisting Laborer Name Role Phone Hermes Ramirez Primary Care Physician [phone] Encounter ONOFREEver MCGRAW [id number] Date(s): 03/14/23 - 03/14/[address] [address] [place] Encounter Diagnosis Influenza A(Discharge Diagnosis) - 03/14/23 Acute migraine(Discharge Diagnosis) - 03/14/23 Discharge Disposition: Home or Self Care Attending [...] US Breast Limited Left 08/24/23 Functional Status 03/14/23 Other exposure to Infectious Disease COV ID-19 [...] Daily, # 30 tab, 11 Refill(s), Pharmacy: [place], [place], [address], cm, 01/04/23 15:03:00 CDT, Height/Length Dosing, 81.65, kg, 01/04/23 15:03:00 CDT, Weight Dosing Start Date: 01/11/23 Status: Ordered aspirin 81 mg oral delayed release tablet 81 mg = 1 tab, Oral, Daily, # 30 tab, 0 Refill(s) Start Date: 04/05/21 Status: Ordered Augmentin 500 mg-125 mg oral tablet 1 tab, Oral, every 8 hr, X 10 days, # 30 tab, 0 Refill(s), 03/15/23 5:40:00 PM ROLLED GOLD PLATER, Pharmacy: [place], [place], [address], cm, 03/02/23 9:01:00 ROLLED GOLD PLATER, Height, 86.64, kg, 03/02/23 9:15:00 ROLLED GOLD PLATER, Weight Dosing Start Date: 03/05/23 Stop Date: 03/15/23 Status: Ordered gabapentin 300 mg oral capsule [...] BID, # 60 cap, 11 Refill(s), Pharmacy: [place], [place], [address], cm, 01/04/23 15:03:00 CDT, Height/Length [...] KIT 10 Start Date: 01/02/23 Status: Ordered Tamiflu 75 mg oral capsule 75 mg = 1 cap, Oral, BID, X 5 days, # 10 cap, 0 Refill(s), 03/19/23 4:46:00 PM ROLLED GOLD PLATER, Pharmacy: [place], [place], [address], cm, 03/14/23 16:02:00 ROLLED GOLD PLATER, Height, 81.65, kg, 03/14/23 16:10:00 ROLLED GOLD PLATER,Weight Dosing Start Date: 03/14/23 Stop Date: 03/19/23 Status: Ordered topiramate 25 mg oral tablet [...] Urinalysis with Culture if Indicated .Urine Volume 03/14/23 Urinalysis Microscopic 03/14/23 Respiratory Panel 2.1 (BioFire) 03/14/23 Most recent to oldest [Reference Range]: 1 UA Color Yellow (03/14/23 3:51 PM) UA WBC [0-5] 0-5 (03/14/23 3:51 PM) UA Urobilinogen [Normal mg/dL] Normal mg /dL (03/14/23 3:51 PM) UA Hyal Cast 0-2 (03/14/23 3:51 PM) UA Bili [Negative mg/dL] Negative mg/dL (03/14/23 3:51 PM) UA Ketones [Negative mg/dL] Negative mg/ dL (03/14/23 3:51 PM) UA RBC [0-3] 0-3 (03/14/23 3:51 PM) UA Leuk Est [Negative Guille/mcL] Negative Guille/mcL (03/14/23 3:51 PM) UA Gran Cast 0-2 (03/14/23 3:51 PM) UA Nitrite [Negative] Negative (03/14/23 3:51 PM) UA Glucose [Normal mg/dL] Normal mg/dL (03/14/23 3:51 PM) UA Bacteria [None Seen] Occasional *ABN* (03/14/23 3:51 PM) UA Protein [Negative mg/dL] Negative mg/ dL (03/14/23 3:51 PM) UA Blood [Negative Rocael/mcL] Negative Rocael /mcL (03/14/23 3:51 PM) UA Mucous [None Seen] None Seen (03/14/23 3:51 PM) UA Spec Grav 1.020 (03/14/23 3:51 PM) UA Squam Epithelial [None Seen] Many *ABN* (03/14/23 3:51 PM) UA pH [5.0-9.0] 5.0 (03/14/23 3:51 PM) UA Appear [Clear] Hazy (03/14/23 3:51 PM) Adenovirus RespP-BFire [Not Detected] No t Detected (03/14/23 3:38 PM) Bordetella parapertussis RespP-BFire [No t Detected] Not Detected (03/14/23 3:38 PM) Bordetella pertussis RespP-BFire [Not De tected] Not Detected (03/14/23 3:38 PM) Chlamydophila pneumoniae RespP-BFire [No t Detected] Not Detected (03/14/23 3:38 PM) Coronavirus 229E (Not COVID-19) RP-BFire [Not Detected] Not Detected (03/14/23 3:38 PM) Coronavirus HKU1 (Not COVID-19) RP-BFire [Not Detected] Not Detected (03/14/23 3:38 PM) Coronavirus NL63 (Not COVID-19) RP-BFire [Not Detected] Not Detected (03/14/23 3:38 PM) Coronavirus OC43 (Not COVID-19) RP-BFire [Not Detected] Not Detected (03/14/23 3:38 PM) Human Metapneumonovirus RespP-BFire [Not Detected] Not Detected (03/14/23 3:38 PM) Human Rhinovirus/Enterovirus RespP-BFir [Not Detected] Not Detected (03/14/23 3:38 PM) Influenza A H1-2009 RespP-BFire [Not Det ected] Detected *ABN* (03/14/23 3:38 PM) Influenza B RespP-BFire [Not Detected] N ot Detected (03/14/23 3:38 PM) Mycomplasma pneumoniae RespP-BFire [Not Detected] Not Detected (03/14/23 3:38 PM) Parainfluenza Virus 1 RespP-BFire [Not D etected] Not Detected (03/14/23 3:38 PM) Parainfluenza Virus 2 RespP-BFire [Not D etected] Not Detected (03/14/23 3:38 PM) Parainfluenza Virus 3 RespP-BFire [Not D etected] Not Detected (03/14/23 3:38 PM) Parainfluenza Virus 4 RespP-BFire [Not D etected] Not Detected (03/14/23 3:38 PM) Respiratory Syncytial Virus RespP-BFire [Not Detected] Not Detected (03/14/23 3:38 PM) UA Culture Ind?. Not Indicated (03/14/23 3:51 PM) Urine Srce Urine (03/14/23 3:51 PM) Urine Volume 12 mL (03/14/23 3:51 PM) SARS-CoV-2 (COVID-19) RP-BFire [Not Dete cted] Not Detected 1 (03/14/23 3:38 PM) UA Yeast [None Seen] None Seen (03/14/23 3:51 PM) 1Interpretive Data: Testing performed using the Videoflote Respiratory Panel 2.1 multiplexed PCR nucleic acid test. Vital Signs Most recent to oldest [Reference Range]: 1 Temperature Oral [35.8-37.3 Deg C] 37.0 Deg C (03/14/23 1:53 PM) Peripheral Pulse Rate [60-100 bpm] 76 bp m (03/14/23 1:53 PM) Respiratory Rate [12-24 br/min] 18 br/mi n (03/14/23 1:53 PM) Blood Pressure [90-140/60-90 mmHg] 133/8 3mmHg (03/14/23 1:53 PM) Mean Arterial Pressure, Cuff [70-110 mmH g] 100 mmHg (03/14/23 1:53 PM) Weight 81.65 kg (03/14/23 1:53 PM) Weight Dosing 81.650 kg (03/14/23 1:53 PM) Height 157.48 cm (03/14/23 1:53 PM) Body Mass Index 32.92 kg/m2 (03/14/23 1:53 PM) Social History Social History Type Response Tobacco Current everyday tob acco user Tobacco Use:. 1 Sex 1Pt states that she smokes half a pack a day. Hospital Discharge Instructions Patient Education 03/14/2023 16:47:37 Influenza, Adult Influenza, Adult Influenza, also called [...] health care provider may recommend: ??? Taking etou-qbg-zpwfywf medicines. ??? Drinking plenty of fluids. In [...] and low-calorie sports drinks. ??? Eat bland, tszf-ev-lcxntz foods in small amounts as you are able. These foods include bananas, applesauce, rice, lean meats, toast, and crackers. ??? Avoid drinking fluids that contain a lot of sugar or caffeine, such as energy drinks, regular sports drinks, and soda. ??? Avoid alcohol. ??? Avoid spicy or fatty foods. General instructions ??? Take wlcq-eba-gdwkgat and prescription medicines only as told by [...] water are not available, use alcohol-based hand urology physician assistant. ??? Keep all follow-up visits. This is [...] provider. Document Revised: 10/23/2020 Document Reviewed: 10/23/2020 [employer] Patient Education ?? 2022 [employer] Follow Up Care 03/14/2023 13:53:31 With:Follow up with primary care provider Address:Unknown When:2 to 4 days Patient Care team information Care Team Personnel Name: Jessee Jones FAMILY WORKER Position: Physician Member Role: Nurse Practitioner Address: Address: [address] [place] [address], [address] [place] [address]- Name: Latoya Marquez FAMILY WORKER Position: Physician Member Role: Nurse Practitioner Address: Address: [address] [place] [address]- Name: Leonila Gonzalez FAMILY WORKER Position: Physician Member Role: Nurse Practitioner Address: Address: [address] [place] [address]- Name: Beth Brandt FAMILY WORKER Position: Physician Member Role: Nurse Practitioner Address: Address: [address] [place] [address] Name: Hermes Ramirez MD Position: Physician Member Role: Primary Care Physician Address: Address: [address] [place] [address], [facility] [address] Name: Anamika Gore MD Position: Physician - Women's Health Member Role: Informed Provider Name: Pillo Moe NP Position: Physician Member Role: Nurse Practitioner Address: Address: [address] [place] [address], [address] [facility] Name: Fernando House MD Position: Physician Member Role: Admitting Physician Name: Chaya Wei RN Position: Nurse Member Role: ED Nurse Care Team Related Persons Name: STACIA JONES Address: Home [address] [place], [place] [id number] Name: ROBYN JAMA
--- OUTSIDE RECORDS SUMMARY | 2024-03-20 11:43 | XMS_ITS | Continuity of Care Document ---
Author Organization [facility] Address [address] [place] [address]- Care Team Providers Care Line Runner Name Role Phone Hermes Ramirez Primary Care Physician Encounter ONOFRE MCGRAW [id number] Date(s): 05/31/23 - 05/31/23 [facility] [address] [place] [address]- Encounter Diagnosis RSV infection(Discharge Diagnosis) - 05/31/23 History of liver transplant(Discharge Diagnosis) - 05/31/23 Discharge Disposition: Home or Self Care Attending [...] from: Title:Office Visit Note Author:Philip Ramirez MD Date:05/31/23 1.??RSV infection??B33.8 O2 sat normal in clinic. ??She is??still having symptoms??approximately 10 days into an RSV infection.?? I put a call into her transplant clinic to discuss next step.?? Steroids??? Continued observation? Waiting for a call back. 2.??History of liver transplant??Z94.4 As above. Future Appointments Future Scheduled Tests Laboratory* Urinalysis [...] Daily, # 30 tab, 11 Refill(s), Pharmacy: [place], [place], [address], cm, 01/04/23 15:03:00 CDT, Height/Length [...] BID, # 60 cap, 11 Refill(s), Pharmacy: [place], [place], [address], cm, 01/04/23 15:03:00 CDT, Height/Length [...] 0 Refill(s), 06/02/23 5:10:00 AM CDT, Pharmacy: [facility], [place], [address], cm, 04/29/23 2:33:00 BRANCH ASSOCIATE, Height, 81, kg, 04/29/23 2:41:00 BRANCH ASSOCIATE, Weight Dosing Start Date: 05/03/23 Stop Date: [...] Oral [35.8-37.3 Deg C] 37.2 Deg C (05/31/23 3:44 PM) Peripheral Pulse Rate [60-100 bpm] 82 bp m (05/31/23 3:44 PM) Respiratory Rate [12-24 br/min] 18 br/mi n (05/31/23 3:44 PM) Blood Pressure [90-140/60-90 mmHg] 122/7 8mmHg (05/31/23 3:44 PM) Mean Arterial Pressure, Cuff [65-140 mmH g] 93 mmHg (05/31/23 3:44 PM) Weight 84.37 kg (05/31/23 3:44 PM) Weight Measured (lbs) 186.004 lb (05/31/23 3:44 PM) Weight Dosing 84.370 kg (05/31/23 3:44 PM) Social History Social History Type Response Tobacco Current everyday tob acco user Tobacco Use:. 1 Sex 1Pt states that she smokes half a pack a day. Physician Outpatient Note * Hermes Ramirez MD: PERFORM Event Display: Office Clinic Note Physician Authored Date: [id number] MISHA JACKSON :1980 Age:42 years Sex:Female Visit Date:05/31/2023 Primary Care Physician: Hermes Ramirez MD Chief Complaint Pt here for [facility] ER f/u for RSV. History of Present Illness MISHA JAKCSON??is a??42 Years??old??Female??presenting today with??Chief Complaint: Pt here for [facility] ER f/u for RSV. (05/31/23 15:44:00).?? Sick for the last 10 days. ??She was diagnosed with RSV??at the emergency room.?? She was back in the emergency room in [place] 3 days ago and had a negative chest x-ray.?? She continues to have cough, fever, body aches, and shortness of breath.?? She is on several??antirejection medications due to liver transplant.?? She talked with her transplantcoordinator 3 days ago??who told her to go to the emergency room in [place]. Review of Systems Constitutional:?No??fevers Respiratory:?Positive for??shortness of breath Cardiovascular:?No??Chest pain Gastrointestinal:?No??abd pain Physical Exam Vitals & Measurements T:??37.2?C ??(Oral)?? HR:??82??(Peripheral)?? RR:??18?? BP:??122/78?? SpO2:??99%?? WT:??84.37??kg?? General:??Alert??and oriented,??No Acute Distress. Eyes: conjunctiva??Clear HENT:??Normocephalic??, tympanic membranes??Normal, ear canal??Normal, nares??Clear, pharynx??Clear, frontal sinus??Non-Tender, maxillary sinus??Non-Tender. Neck:??Negative??anterior cervical adenopathy,??Negative??posterior cervical adenopathy. Cardiovascular:??Regular??rate and rhythm,??Normal??peripheral perfusion. Respiratory: Lungs??Clear to Auscultation, respirations??Non-Labored. Abd: Soft, nontender.?? Positive bowel sounds. Skin:??No Rash,??No Palor.?? Assessment/Plan 1.??RSV infection??B33.8 O2 sat normal in clinic. ??She is??still having symptoms??approximately 10 days into an RSV infection.?? I put a call into her transplant clinic to discuss next step.?? Steroids??? Continued observation? Waiting for a call back. 2.??History of liver transplant??Z94.4 As above. Problem List/Past Medical History Ongoing Acne [...] tablet, 20 mg= 1 tab, Oral, BID Protonix 40 mg oral delayed release tablet, 40 mg= 1 tab, Oral, Daily venlafaxine 37.5 mg oral capsule, extended release, [...] (Tdap) adult/adol 05/25/2012 Recorded Electronically Signed on 05/31/23 04:50 PM Hermes Ramirez MD Patient Care team information Care Team Personnel Name: Jessee Jones HOUSING MANAGER Position: Physician Member Role: Nurse Practitioner Address: Address: [address] [place] [address], [address] Name: Latoya Marquez HOUSING MANAGER Position: Physician Member Role: Nurse Practitioner Address: Address: [address] [place] [address] Name: Leonila Gonzalez HOUSING MANAGER Position: Physician Member Role: Nurse Practitioner Address: Address: [address] [place] [address] Name: eBth Brandt HOUSING MANAGER Position: Physician Member Role: Nurse Practitioner Address: Address: [address] [place] [address] Name: Hermes Ramirez MD Position: Physician Member Role: Informed Provider Address: Address: [address] [place] [address], [address] Name: Pillo Moe HOUSING MANAGER Position: Physician Member Role: Nurse Practitioner Address: Address: [address] [place] [address], [address] [facility] Care Team Related Persons Name: STACIA JONES Address: Home [address] [id number] Name: MADY CHEN
--- OUTSIDE RECORDS SUMMARY | 2024-03-20 11:43 | XMS_ITS | Continuity of Care Document ---
Author Organization [facility] Address [address] [place] [address] Care Team Providers Care Blindstitch Hemmer Name Role Phone Ashley Hermes Chris Primary Care Physician [phone] Encounter ONOFRE MCGRAW [id number] Date(s): 03/08/22 - 03/08/22 [address] [address] [place] [address]- [place] Discharge Disposition: Home or Self Care Attending Physician: Allen Manzano Admitting Physician: Allen Manzano Allergies, Adverse Reactions, Alerts Substance Reaction Severity Status codeine Unknown Itching Severe Active gentamicin Moderate Active erythromycin Medication interaction Activ e azithromycin Unknown Severe Active NSAIDs Severe Active aspirin Medication interaction Severe Activ e Toradol Kidney failure as a complication of care Severe Active Assessment and Plan Diagnostic Tests Pending * Tacrolimus (FK506), Blood LC/MS LC 03/08/22 Immunizations Given and Recorded Vaccine Date Status [...] wheezing, # 6.7 g, 0 Refill(s), Pharmacy: [place], [place], 73, cm, 09/13/21 23:53:00 [...] needed, # 12 cap, 0 Refill(s), Pharmacy: [facility] [place], [place], 157, cm, 11/04/21 20:02:00 CDT, Height/Length [...] BID, # 180 tab, 3 Refill(s), Pharmacy: [facility], 157.48, cm, 02/07/22 18:45:00CST, Height/Length Dosing, 72.57, kg, 02/07/22 18:45:00 OUTSIDE PLANT TECHNICIAN, Weight Dosing Start Date: 02/13/22 Status: Ordered [...] nausea/vomiting, # 20 tab, 0 Refill(s), Pharmacy: [facility] [place], [place], [address], cm, 09/29/21 23:03:00 CDT, Height/Length [...] Results Laboratory List Name Date Automated Diff 03/08/22 CBC w/ Diff 03/08/22 Cholesterol Total 03/08/22 Comprehensive Metabolic Panel (CMP) 02/18 GGT 03/08/22 Lactate Dehydrogenase 03/08/22 Magnesium Level 03/08/22 Phosphorus Level 03/08/22 Uric Acid 03/08/22 Most recent to oldest [Reference Range]: 1 WBC [4.0-11.5 K/mcL] 8.3 K/mcL (03/08/22 6:51 AM) RBC [4.20-5.40 x10^6/mcL] 3.94 x10^6/mcL *LOW* (03/08/22 6:51 AM) Neutro Auto 69.0 % *NA* (03/08/22 6:51 AM) Lymph Auto 18.0 % *NA* (03/08/22 6:51 AM) [place] Auto 8.2 % *NA* (03/08/22 6:51 AM) Basophil Auto 0.2 % *NA* (03/08/22 6:51 AM) BUN [7-18 mg/dL] 21 mg/dL *HI* (03/08/22 6:51 AM) Cholesterol Total [100-199 mg/dL] 169 mg /dL (03/08/22 6:51 AM) Glucose Level [70-110 mg/dL] 119 mg/dL *HI* (03/08/22 6:51 AM) Potassium Level [3.5-5.1 mmol/L] 3.8 mmo l/L (03/08/22 6:51 AM) Baso Absolute [0.0-0.1 x10^3/mcL] 0.0 x1 0^3/mcL (03/08/22 6:51 AM) MCV [78.0-100.0 fL] 99.2 fL (03/08/22 6:51 AM) AST [15-37 unit/L] 17 unit/L (03/08/22 6:51 AM) ALT [12-78 unit/L] 44 unit/L (03/08/22 6:51 AM) MCHC [29.0-37.5 g/dL] 33.2 g/dL (03/08/22 6:51 AM) Sodium Level [136-145 mmol/L] 140 mmol/L (03/08/22 6:51 AM) Lymph Absolute [0.8-5.8 x10^3/mcL] 1.5 x 10^3/mcL (03/08/22 6:51 AM) Hct [36.0-48.0 %] 39.1 % (03/08/22 6:51 AM) Calcium Level [8.5-10.1 mg/dL] 8.4 mg/dL *LOW* (03/08/22 6:51 AM) [place] Absolute [0.1-1.5 x10^3/mcL] 0.7 x1 0^3/mcL (03/08/22 6:51 AM) Phosphorus Level [2.6-4.7 mg/dL] 3.6 mg/ dL (03/08/22 6:51 AM) Albumin Level [3.4-5.0 g/dL] 2.9 g/dL *LOW* (03/08/22 6:51 AM) Protein Total [6.4-8.2 g/dL] 6.2 g/dL *LOW* (03/08/22 6:51 AM) MCH [27.0-34.0 pg] 33.0 pg (03/08/22 6:51 AM) Magnesium Level [1.8-2.4 mg/dL] 1.5 mg/d L *LOW* (03/08/22 6:51 AM) Neutro Absolute [1.5-8.1 x10^3/mcL] 5.7 x10^3/mcL (03/08/22 6:51 AM) Bilirubin Total [0.0-1.0 mg/dL] 0.6 mg/d L (03/08/22 6:51 AM) Hgb [12.0-16.0 g/dL] 13.0 g/dL (03/08/22 6:51 AM) Uric Acid [2.6-7.2 mg/dL] 6.1 mg/dL (03/08/22 6:51 AM) Alk Phos [46-130 unit/L] 209 unit/L *HI* (03/08/22 6:51 AM) LDH [100-190 unit/L] 130 unit/L (03/08/22 6:51 AM) MPV [6.0-10.0 fL] 10.5 fL *HI* (03/08/22 6:51 AM) Platelets [150-450 K/mcL] 140 K/mcL *LOW* (03/08/22 6:51 AM) CO2 [21-32 mmol/L] 23 mmol/L (03/08/22 6:51 AM) Eos Absolute [0.0-0.5 x10^3/mcL] 0.3 x10 ^3/mcL (03/08/22 6:51 AM) GGT [5-55 unit/L] 273 unit/L *HI* (03/08/22 6:51 AM) eGFR Non-AA 42 *NA* (03/08/22 6:51 AM) eGFR AA 51 *NA* (03/08/22 6:51 AM) Chloride Level [97-107 mmol/L] 109 mmol/ L *HI* (03/08/22 6:51 AM) RDW-CV [11.5-15.0 %] 13.0 % (03/08/22 6:51 AM) Imm Gran Absolute [0.0-0.1 x10^3/mcL] 0. 1 x10^3/mcL (03/08/22 6:51 AM) Imm Gran Auto 0.7 % *NA* (03/08/22 6:51 AM) NRBC Auto 0.0 % *NA* (03/08/22 6:51 AM) NRBC Absolute [0.0-0.0 x10^3/mcL] 0.0 x1 0^3/mcL (03/08/22 6:51 AM) Creatinine Level [0.60-1.30 mg/dL] 1.47 mg/dL *HI* (03/08/22 6:51 AM) Anion Gap [5-15 mmol/L] 12 mmol/L (03/08/22 6:51 AM) Eos, Auto 3.9 % *NA* (03/08/22 6:51 AM) Social History Social History Type Response Tobacco Current everyday tob acco user Tobacco Use:. Sex Patient Care team information Personnel Name: Hermes Ramirez MD Address: Address: [address] [place] [address] [place] [address]
--- OUTSIDE RECORDS SUMMARY | 2024-03-20 11:43 | XMS_ITS | Continuity of Care Document ---
Author Organization [facility] Address [address] [place] [address] Care Team Providers Care Blood Bank Calendar Control Clerk Name Role Phone eHrmes Ramirez Primary Care Physician Encounter ONOFREEver MCGRAW [id number] Date(s): 05/05/22 - 05/05/[address] [address] Encounter Diagnosis Intractable migraine(Discharge Diagnosis) - 05/05/22 Discharge Disposition: Home or Self Care Attending [...] wheezing, # 6.7 g, 0 Refill(s), Pharmacy: [place], [place], [address], cm, 09/13/21 23:53:00 CDT, Height/Length [...] needed, # 12 cap, 0 Refill(s), Pharmacy: [place], [place], 157, cm, 11/04/21 20:02:00 CDT, Height/Length [...] 18:45:00CST, Height/Length Dosing, 72.57, kg, 02/07/22 18:45:00 CONVEYOR LINE BAKERY WORKER, Weight Dosing Start Date: 02/13/22 Status: Ordered morphine 2 mg/mL preservative-free injectable solution 2 mg = 1 mL, IM, Once, 0 Refill(s) Start Date: 05/05/22 Status: Ordered oseltamivir 30 mg oral capsule 30 mg = 1 cap, Oral, BID, # 10 cap, 0 Refill(s), Pharmacy: [place], [place], [address], cm, 03/16/22 18:01:00 CONVEYOR LINE BAKERY WORKER, Height/Length Dosing, 77.11, kg, 03/16/22 18:01:00 CONVEYOR LINE BAKERY WORKER, Weight Dosing Start Date: 03/16/22 Status: Ordered [...] nausea/vomiting, # 20 tab, 0 Refill(s), Pharmacy: [place], [place], [address], cm, 09/29/21 23:03:00 CDT, Height/Length [...] [35.8-37.3 Deg C] 37 De g C (05/05/22 9:50 PM) Peripheral Pulse Rate [60-100 bpm] 86 bp m (05/05/22 9:50 PM) Blood Pressure [90-140/60-90 mmHg] 128/7 9mmHg (05/05/22 9:50 PM) Weight 82.00 kg (05/05/22 9:50 PM) Weight Dosing 82.00 kg (05/05/22 9:57 PM) Height 157.000 cm (05/05/22 9:50 PM) Height/Length Dosing 157.000 cm (05/05/22 9:57 PM) Body Mass Index 33.000 kg/m2 (05/05/22 9:50 PM) Social History Social History Type Response Smoking Status 5-9 cigarettes (betw een 1/4 to 1/2 pack)/day in last 30 days entered on: 05/12/21 Sex Hospital Discharge Instructions Patient Education 05/05/2022 21:59:43 Chronic Migraine Headache, Sbgu-jp-Vari Chronic Migraine Headache A migraine headache is [...] these instructions at home: Medicines ??? Take xkvg-kwj-[id number] and prescription medicines only as told by [...] Headache and Migraine Patients (CHAMP): headachemigraine.org ??? [place] Migraine Foundation: americanmigrainefoundation.org ??? National Headache Foundation: [...] provider. Document Revised: 04/22/2020 Document Reviewed: 04/22/2020 [employer] Patient Education ?? 2021 [employer] Follow Up Care 05/05/2022 21:49:56 With:Follow up with primary care provider Address: When:5 to 7 days Physician Emergency department Note * Felicia Roach MD: PERFORM Event Display: ED Note Physician Authored Date: [id number] MISHA JACKSON :1980 Age:41 years Sex:Female Visit Date:05/05/2022 Primary Care Physician: Hermes Ramirez MD Basic Information Time Seen: Felicia Roach MD / 05/05/2022 21:50 Chief Complaint pt states it started getting bad after noon its mainly in my eyes they burn Prehospital took tylenol History Of Present Illness: This is a case of by 41-year-old female with almost??weekly ER visit for intractable migraines,??also with complex past medical history including??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 She was last seen here for the same headache 4 days ago.?? Review of her records reveal she also went to [facility]emergency room with a similar headache twice this month. Review of Systems: Constitutional:?No??fevers,?No??chills,?No??sweats Eye:?No??recent visual problems ENT:?No??ear pain,?No??nasal congestion,?No??sore throat Respiratory:?No??shortness of breath,?No??cough Cardiovascular:?No??Chest pain,?No??palpitations,?No??syncope Gastrointestinal:?Nonausea,?No??vomiting,?No??diarrhea Genitourinary:?No??hematuria Clemente/Lymph:?No??bruising tendency,?No??swollen lymph glands Endocrine:?No??excessive thirst,??No??excessive hunger Musculoskeletal:??No??back pain,??No??neck pain,??No??joint pain,??No??muscle pain,??No??decreased range of motion Integumentary:?No??rash,?No??pruritus,?No??abrasions Neurologic: Alert & oriented X 4 Psychiatric:?No??anxiety,?No??depression Physical Exam Vitals & Measurements T:??37?C ??(Oral)?? HR:??86??(Peripheral)?? BP:??128/79?? SpO2:??90%?? HT:??157.000??cm?? WT:??82.00??kg?? BMI:??33.000?? General: Alert and oriented, well nourished,?No??acute distress [...] Qualifying Data Assessment/Plan 1.??Intractable migraine??G43.919 Advised to see PCP for further management Orders: Benadryl, 50 mg = 1 mL, IM, Once, 0 Refill(s) Benadryl, 50 mg = 1 mL, IM, Injection, Once, First Dose: 05/05/22 21:57:00 CONVEYOR LINE BAKERY WORKER, Stop Date: 05/05/2320:57:00 CONVEYOR LINE BAKERY WORKER, Physician Stop morphine 2 mg/mL preservative-free injectable solution, 2 mg = 1 mL, IM, Once, 0 Refill(s) morphine, 2 mg = 0.5 mL, IM, Injection, Once, First Dose: 05/05/22 21:57:00 CONVEYOR LINE BAKERY WORKER, Stop Date: 05/05/22 21:57:00 CONVEYOR LINE BAKERY WORKER, Physician Stop Phenergan, 25 mg = 1 mL, IM, Once, 0 Refill(s) Phenergan, 25 mg = 1 mL, IM, Injection, Once, First Dose: 05/05/22 21:57:00 CONVEYOR LINE BAKERY WORKER, Stop Date: 05/05/22 21:57:00 CONVEYOR LINE BAKERY WORKER, Physician Stop Patient Discharge Condition Stable Discharge Disposition Discharge to home Patient Education Chronic Migraine Headache, Hrls-cu-Qvqf Follow Up With When Contact Information Follow up with primary care provider Within 5 to 7 days Additional Instructions: Medication Reconciliation New Prescription diphenhydrAMINE (Benadryl)50 Milligrams Intramuscular (in a muscle) once. ?? morphine (morphine 2 mg/mL preservative-free injectable [...] Substance Use Never Tobacco 5-9 cigarettes (between 4 to 1/2 pack)/day in last 30 days Tobacco Use:. Family History Cancer: Mother. Attending Attestation Stable Electronically Signed on 05/05/22 10:00 PM Felicia Roach MD Patient Care team information Care Team Personnel Name: Jessee Jones LICENSING SERVICES CLERK Position: Physician Member Role: Nurse Practitioner Address: Address: [address] [place] [address], [facility] [address] [place] [address]- Name: Latoya Marquez LICENSING SERVICES CLERK Position: Physician Member Role: Nurse Practitioner Address: Address: [address] [place] [address]- Name: Leonila Gonzalez LICENSING SERVICES CLERK Position: Physician Member Role: Nurse Practitioner Address: Address: [address] [place] [address]- Name: Beth Brandt LICENSING SERVICES CLERK Position: Physician Member Role: Nurse Practitioner Address: Address: [address] [place] [address] [place] [address] Name: Hermes Ramirez MD Position: Physician Member Role: Informed Provider Address: Address: [address] [place] [address], [address] [place] [address]- Name: Pillo Moe LICENSING SERVICES CLERK Position: Physician Member Role: Nurse Practitioner Address: Address: [address] [place] [address], [facility] Name: Felicia Roach MD Position: Physician Member Role: Admitting Physician Address: Address: [address] [place] [address]- Name: Tori Villalpando RN Position: Nurse Member Role: Registered Nurse Care Team Related Persons Name: STACIA JONES Address: Home [address] [place], [place] [id number] Name: ROYBN JAMA Address: Home
--- OUTSIDE RECORDS SUMMARY | 2024-03-20 11:43 | XMS_ITS | Continuity of Care Document ---
Author Organization [facility] Address [address] [place] [address] Care Team Providers Care Records Manager Name Role Phone Hermes Ramirez Primary Care Physician [phone] Encounter ONOFRE MCGRAW [id number] Date(s): 11/10/22 - 11/10/[address] [address]- [place] Encounter Diagnosis Headache, chronic migraine without aura, intractable(Discharge Diagnosis) - 11/10/22 Discharge Disposition: Home or Self Care Attending [...] Complete 2+ Views Right 07/04/22 Functional Status 11/10/22 Other exposure to Infectious Disease Non e [...] Daily, # 30 tab, 0 Refill(s), Pharmacy: [place], [place], [address], cm, 09/10/22 15:23:00 CDT, Height/Length [...] BID, # 60 cap, 0 Refill(s), Pharmacy: [place], [place], [address], cm, 09/10/22 15:23:00 CDT, Height/Length [...] Oral [35.8-37.3 Deg C] 36.9 Deg C (11/10/22 9:14 AM) Apical Heart Rate [60-100 bpm] 66 bpm (11/10/22 10:42 AM) Peripheral Pulse Rate [60-100 bpm] 93 bp m (11/10/22 9:14 AM) Respiratory Rate [12-24 br/min] 18 br/mi n (11/10/22 9:14 AM) Blood Pressure [90-140/60-90 mmHg] 129/7 4mmHg (11/10/22 10:42 AM) 121/72mmHg (11/10/22 9:14 AM) Weight Dosing 81.65 kg (11/10/22 10:34 AM) Weight Estimated 81.65 kg (11/10/22 9:14 AM) Height/Length Dosing 157.480 cm (11/10/22 10:34 AM) Height/Length Estimated 157.480 cm (11/10/22 9:14 AM) Social History Social History Type Response Tobacco Current everyday tob acco user Tobacco Use:. Sex Hospital Discharge Instructions Patient Education 11/10/2022 09:26:20 Chronic Migraine Headache, Heku-jw-Pube Chronic Migraine Headache A migraine headache is [...] these instructions at home: Medicines ??? Take luhk-wtn-nfxwfua and prescription medicines only as told by [...] Headache and Migraine Patients (CHAMP): headachemigraine.org ??? [place] Migraine Foundation: americanmigrainefoundation.org ??? National Headache Foundation: [...] Reviewed: 04/22/2020 Elsevier Patient Education ?? 2022 [employer] Follow Up Care 11/10/2022 09:14:47 With:Follow up with primary care provider Address: When:5 to 7 days Physician Emergency department Note * Felicia Roach MD: PERFORM Event Display: ED Note Physician Authored Date: [id number] MISHA JACKSON :1980 Age:42 years Sex:Female Visit Date:11/10/2022 Primary Care Physician: Hermes Ramirez MD Basic Information Time Seen: Felicia Roach MD / 11/10/2022 09:18 Chief Complaint Migraine History Of Present Illness: 42-year-old female who frequents our ER for migraines almost every week,??has a complex past medical history including congenital biliary atresia??requiring liver transplant twice, end-stage renal disease requiring renal transplant, currently under the care of transplant team from [place],??chronic? ?immunosuppressive medications,??chronic intractable migraines, chronic neck and back pain,??chronic kidney disease stage IV, chronic thrombocytopenia,??current tobacco smoker,??recurrent ear infections under the care of ENT presents to the ED with a??recurrent migraine, similar characteristic as in the past.?? She also has had brown liquid stools recently??without any abdominal pain. ??No fever or chills. ??No vomiting Review of Systems: Constitutional:?No??fevers,?No??chills,?No??sweats Eye:?No??recent visual problems ENT:?No??ear pain,?No??nasal congestion,?No??sore throat Respiratory:?No??shortness of breath,?No??cough Cardiovascular:?No??Chest pain,?No??palpitations,?No??syncope Gastrointestinal:?Nonausea,?No??vomiting,?Positive for??diarrhea Genitourinary:?No??hematuria Clemente/Lymph:?No??bruising tendency,?No??swollen lymph glands Endocrine:?No??excessive [...] Assessment/Plan 1.??Headache, chronic migraine without aura, intractable??G43.719 Patient given her usual??migraine medications Given a note to be off work today Advised to follow-up with PCP Orders: Benadryl, 50 mg = 1 mL, IM, Injection, Once, First Dose: 11/10/22 10:00:00 CDT, Stop Date: 11/10/2309:00:00 CDT, Physician Stop, Routine morphine, 2 mg = 1 mL, IM, Injection, Once, First Dose: 11/10/22 10:00:00 CDT, Stop Date: 11/10/22 10:00:00 CDT, Physician Stop, Routine Phenergan, 25 mg = 1 mL, IM, Injection, Once, First Dose: 11/10/22 10:00:00 CDT, Stop Date: 11/10/22 10:00:00 CDT, Physician Stop, Routine Patient Discharge Condition Stable Discharge Disposition Discharge to home Patient Education Chronic Migraine Headache, Yqjy-jf-Usmc Follow Up With When Contact Information Follow [...] Mother. Attending Attestation Stable Electronically Signed on 11/10/22 09:26 AM Felicia Roach MD Patient Care team information Care Team Personnel Name: Jessee Jones PAPER SAMPLE CLERK Position: Physician Member Role: Nurse Practitioner Address: Address: [address] [place] [address], [address] [place] [address]- Name: Latoya Marquez PAPER SAMPLE CLERK Position: Physician Member Role: Nurse Practitioner Address: Address: [address] [place] [address]- Name: Leonila Gonzalez PAPER SAMPLE CLERK Position: Physician Member Role: Nurse Practitioner Address: Address: [address] [place] [address]- Name: Beth Brandt NP Position: Physician Member Role: Nurse Practitioner Address: Address: [address] Name: Hermes Ramirez MD Position: Physician Member Role: Informed Provider Address: Address: [address] [facility], [facility] [address] [place] [address]- Name: Pillo Moe NP Position: Physician Member Role: Nurse Practitioner Address: Address: [address] [facility], [facility] [address] [facility] Name: Felicia Roach MD Position: Physician Member Role: Admitting Physician Address: Address: [address] [place], [place] [address] Name: Sejal Porter RN Position: Nurse Member Role: ED Nurse Care Team Related Persons Name: STACIA JONES Address: Home [address] [place], [place] [id number] Name: ROBYN JAMA Address: Home
--- OUTSIDE RECORDS SUMMARY | 2024-03-20 11:43 | XMS_ITS | Continuity of Care Document ---
Author Organization [facility] Address [address] [place] [address]- Care Team Providers Care Sales Development Consultant Name Role Phone Hermes Ramirez Primary Care Physician Encounter ONOFRE MCGRAW [id number] Date(s): 11/10/22 - 11/10/22 [facility] [address], [place] [address] Encounter Diagnosis Diarrhea(Discharge Diagnosis) - 11/10/22 Discharge Disposition: Home or Self Care Attending Physician: Misty Anaya [employer]IDENT SALES [employer] MARKETING Allergies, Adverse Reactions, Alerts Substance Reaction Severity [...] Daily, # 30 tab, 0 Refill(s), Pharmacy: [place], [place], 157, cm, 09/10/22 15:23:00 CDT, Height/Length [...] BID, # 60 cap, 0 Refill(s), Pharmacy: [place], [address], cm, 09/10/22 15:23:00 CDT, Height/Length [...] List Name Date Influenza A/B ([facility]onna) POCT 11/10/22 SARS-CoV-2 (Covid-19) AG ([facility]) POCT Most recent to oldest [Reference Range]: 1 SARS-CoV or CoV-2 (COVID-19) Ag ([facility]onna) Negative *NA* (11/10/22 2:57 PM) Employed in healthcare? No *NA* (11/10/22 2:57 PM) Symptomatic as defined by CDC? Yes *NA* (11/10/22 2:57 PM) Date of onset (Lab) 10-NOV-2022 *NA* (11/10/22 2:57 PM) Hospitalized due to COVID-19? No *NA* (11/10/22 2:57 PM) In ICU? No *NA* (11/10/22 2:57 PM) Group care resident? No *NA* (11/10/22 2:57 PM) status? Not *NA* (11/10/22 2:57 PM) Influenza A (Keyonna) POCT Negative *NA* (11/10/22 2:57 PM) Influenza B ([facility]onna) POCT Negative *NA* (11/10/22 2:57 PM) Vital Signs Most recent to oldest [Reference Range]: 1 Temperature Oral [35.8-37.3 Deg C] 37.1 Deg C (11/10/22 2:42 PM) Temperature Oral (DegF) 98.7 Deg F (11/10/22 2:42 PM) Peripheral Pulse Rate [60-100 bpm] 71 bp m (11/10/22 2:42 PM) Respiratory Rate [12-24 br/min] 18 br/mi n (11/10/22 2:42 PM) Blood Pressure [90-140/60-90 mmHg] 144/8 5mmHg *HI* (11/10/22 2:42 PM) Weight 90.6 kg (11/10/22 2:42 PM) Social History Social History Type Response Tobacco Current everyday tob acco user Tobacco Use:. Sex Urgent care center Note * Weekly, Misty [employer]IDENT SALES [employer] MARKETING: PERFORM Event Display: Urgent Care Office Clinic Note Authored Date: [id number] MISHA JACKSON Ever :1980 Age:42 years Sex:Female Visit Date:11/10/2022 Primary Care Physician: Hermes Ramirez MD Chief Complaint Pt reports positive home covid test and is needing a note for work. History of Present Illness Patient presents to [facility] with complaints of testing positive for COVID at home and needing awork note. Patient reports that she was seen in ER today for diarrhea and migraine??and was given aCOVID test kit to take home. Patient reports migraine improved. Patient reports that she tested herself and it came back positive. Patient denies additional symptoms. Patient reports that diarrhea started today. Patient reports eating and drinking normally. Patient denies interventions prior to arrival. Patient denies known sick contacts. Patient brought COVID test strip to clinic. Test strip hadtwo pink lines and the control line. Patient reports that a piece fell off of the test strip. Review of Systems Constitutional:?No??fever ENT:?No??ear pain,?No??nasal congestion,?No??sore throat.??No??smell changes.?No??tastechanges. Respiratory:?No??shortness of breath,?No??cough Gastrointestinal:?Nonausea,?No??vomiting,?Positive for??diarrhea,??No??abd pain. Clemente/Lymph:?No??swollen lymph glands Integumentary:?No??rash Neurologic:?No??headache Physical Exam Vitals & Measurements T:??37.1?C ??(Oral)?? HR:??71??(Peripheral)?? RR:??18?? BP:??144/85?? SpO2:??96%?? WT:??90.6??kg?? General:??alert,??no acute distress. Skin:??warm,??dry,??no??rash HENT:?? tympanic membranes??Normal, ear canal??Normal, nares??Clear, pharynx??Clear, bilateral tonsils??0 Cardiovascular:??regular??rate and rhythm, S1 and S2, no murmur, rubs, clicks, thrills, or gallops,??normal??peripheral perfusion, no edema to lower legs bilaterally Respiratory:??lungs??CTA, respirations??non-labored. Gastrointestinal:??appearance normal,??soft, aorta normal,??bowel sounds??increased,??non distended,??no??[mass, ascites, fluid wave, pulsatile mass, abdominal bruit, shifting dullness],??no??tenderne ss,??no??guarding,??no??rigidity,??negative??Simms's sign,??negative??McBurney's point,?no??CVAtendernes Neurological:??oriented??x 4, LOC??appropriate for age,?? speech??normal. Psychiatric:??cooperative, affect??appropriate for age,??normal??judgement Depression Screen?? PHQ 2?? Little Interest - Pleasure in Activities: Not at all Feeling Down, Depressed, Hopeless: Not at all Initial Depression Screen Score: 0 Score Assessment/Plan 1.??Diarrhea??R19.7 COVID negative in clinic x 2, per patient request.??Likely false positive test at home. Advised patient to retest again tomorrow with remaining kit and to follow directions carefully. Follow-up with PCP in 3-5 days, sooner if no improvement. Start a BRAT diet and advance as tolerated. ED for worsening symptoms. Educated patient on signs and symptoms that require immediate medical attention. Patient voiced understanding and agreed to plan. No charge. Problem List/Past Medical History Ongoing Acne Anxiety [...] SARS-CoV or CoV-2 (COVID-19) Ag (Keyonna) Negative 11/10/2022 14:57 CDT Electronically Signed on 11/10/22 04:50 PM Misty Anaya NP Hermes Ramirez MD Patient Care team information Care Team Personnel Name: Jessee Jones NP Position: Physician Member Role: Nurse Practitioner Address: Address: [address] [place] [address], [address] [place] [address] Name: Latoya Marquez [employer]ET[employer] Position: Physician Member Role: Nurse Practitioner Address: Address: [address] [place] [address] Name: Leonila Gonzalez [employer] MARKETING Position: Physician Member Role: Nurse Practitioner Address: Address: [address] [place] [address]- Name: Beth Brandt [employer]IDENT SAL[employer] MARKETING Position: Physician Member Role: Nurse Practitioner Address: Address: [address] [place] [address] [place] [address] Name: Hermes Ramirez MD Position: Physician Member Role: Informed Provider Address: Address: [address] [place] [address], [address] [place] [address]- Name: Pillo Moe [employer]IDENT SALES [employer] MARKETING Position: Physician Member Role: Nurse Practitioner Address: Address: [address] [place] [address], [address] [facility] Care Team Related Persons Name: STACIA JONES Address: Home [address] [place], [place] [id number] Name: ROBYN JAMA Address: Home
--- OUTSIDE RECORDS SUMMARY | 2024-03-20 11:43 | XMS_ITS | Continuity of Care Document ---
Author Organization [facility] Address [address] [place] [address] Care Team Providers Care District Court Reporter Name Role Phone Hermes Ramirez Primary Care Physician [phone] Encounter ONOFRE MCGRAW [id number] Date(s): 09/29/21 - 09/29/[address] [address] Encounter Diagnosis Intractable migraine(Discharge Diagnosis) - 09/29/21 Discharge Disposition: Home or Self Care Attending Physician: Akil Casas MD Admitting Physician: Akil Casas MD Allergies, Adverse Reactions, Alerts Substance Reaction Severity Status gentamicin Moderate Active erythromycin Medication interaction Activ e aspirin Medication interaction Activ e Toradol Kidney failure as a complication of care Active NSAIDs Severe Active Functional Status 09/29/21 Family Member Travel History No recent t [...] hr, # 20 tab, 0 Refill(s), Pharmacy: [facility] [place], [place], 73, cm, 09/13/21 23:53:00 CDT, Height/Length Dosing, 157, kg, 09/13/21 23:53:00 CDT, Weight Dosing Start Date: 09/14/21 Stop Date: 09/24/21 Status: Ordered albuterol 90 mcg/inh aerosol inhaler 1 puffs, Inhale, every 4 hr, PRN as needed for wheezing, # 6.7 g, 0 Refill(s), Pharmacy: [place], [place], 73, cm, 09/13/21 23:53:00 CDT, Height/Length [...] TID, # 21 cap, 0 Refill(s), Pharmacy: [place], [place], 157, cm, 09/27/21 22:29:00 CDT, Height/Length Dosing, 73, kg, 09/27/21 22:29:00 CDT, Weight Dosing Start Date: 09/27/21 Stop Date: 10/04/21 Status: Ordered codeine-guaifenesin 7.5 mg-225 mg/5 mL oral liquid 7.5 mL, Oral, every 6 hr, PRN as needed for cough, # 120 mL, 0 Refill(s), Pharmacy: [place], [place], 73, cm, 09/13/21 23:53:00 CDT, Height/Length Dosing, 157, kg, 09/13/21 23:53:00 CDT, Weight Dosing Start Date: 09/14/21 Status: Ordered Diflucan 150 mg oral tablet 150 mg = 1 tab, Oral, Once, # 1 tab, 0 Refill(s), Pharmacy: [facility] [place], 73, cm,09/13/21 23:53:00 CDT, Height/Length Dosing, 157, [...] BID, # 180 tab, 3 Refill(s), Pharmacy: [place], [place], [address], cm, 10/22/20 21:26:00 CDT, Height/Length [...] nausea/vomiting, # 20 tab, 0 Refill(s), Pharmacy: [place], [place], [address], cm, 09/29/21 23:03:00 CDT, Height/Length [...] 1 2 Temperature Oral [35.8-37.3 Deg C] 36.1 Deg C (09/29/21 10:16 PM) Peripheral Pulse Rate [60-100 bpm] 78 bp m (09/29/21 11:52 PM) 84 bpm (09/29/21 10:16 PM) Respiratory Rate [12-24 br/min] 18 br/mi n (09/29/21 11:52 PM) 18 br/min (09/29/21 10:16 PM) Blood Pressure [90-140/60-90 mmHg] 125/7 4mmHg (09/29/21 11:52 PM) 118/64mmHg (09/29/21 10:16 PM) Weight 77.00 kg (09/29/21 10:16 PM) Weight Dosing 77.00 kg (09/29/21 11:03 PM) Height 157.000 cm (09/29/21 10:16 PM) Height/Length Dosing 157.000 cm (09/29/21 11:03 PM) Social History Social History Type Response Smoking Status 5-9 cigarettes (betw een 1/4 to 1/2 pack)/day in last 30 days entered on: 05/12/21 Sex Hospital Discharge Instructions Patient Education 09/29/2021 22:47:48 Migraine Headache Migraine Headache A migraine headache [...] these instructions at home: Medicines ??? Take smnb-kny-lexhzor and prescription medicines only as told by your health care provider. ??? Ask your health care provider if the medicine prescribed to you: ??? Requires you to avoid driving or using heavy machinery. ??? Can cause constipation. You may need to take these actions to prevent or treat constipation: ??? Drink enough fluid to keep your urine pale yellow. ??? Take jexi-dcs-bhfowwp or prescription medicines. ??? Eat foods that [...] Reviewed: 04/18/2019 Elsevier Patient Education ?? 2020 [employer] Follow Up Care 09/29/2021 22:16:19 With:Hermes Ramirez MD Address: [address] [place] [address], [address] [place] [address]- When:1 to 2 days Care Team Personnel Name: Hermes Ramirez MD Address: [address] [place] [address], [address] [place] [address]
--- OUTSIDE RECORDS SUMMARY | 2024-03-20 11:43 | XMS_ITS | Continuity of Care Document ---
Author Organization [facility] Address [address] [place] [address] Care Team Providers Care Soaping Department Supervisor Name Role Phone Hermes Ramirez Primary Care Physician Encounter [facility] [id number] Date(s): 04/14/22 - 04/14/[address] [address] Encounter Diagnosis Migraine headache(Discharge Diagnosis) - 04/14/22 Eye pain(Discharge Diagnosis) - 04/14/22 Migraine, unspecified, not intractable, without status migrainosus(Final) [...] Ova + Parasite Exam 04/07/22 Functional Status 04/14/22 Family Member Travel History No recent t [...] wheezing, # 6.7 g, 0 Refill(s), Pharmacy: [place], [place], 73, cm, 09/13/21 23:53:00 CDT, Height/Length [...] needed, # 12 cap, 0 Refill(s), Pharmacy: [place], [place], 157, cm, 11/04/21 20:02:00 CDT, Height/Length [...] 18:45:00CST, Height/Length Dosing, 72.57, kg, 02/07/22 18:45:00 SIGHTSEEING GUIDE, Weight Dosing Start Date: 02/13/22 Status: Ordered oseltamivir 30 mg oral capsule 30 mg = 1 cap, Oral, BID, # 10 cap, 0 Refill(s), Pharmacy: [place], [place], 157.[address], cm, 03/16/22 18:01:00 SIGHTSEEING GUIDE, Height/Length Dosing, 77.11, kg, 03/16/22 18:01:00 SIGHTSEEING GUIDE, Weight Dosing Start Date: 03/16/22 Status: Ordered Pepcid 20 mg oral tablet 20 mg = 1 tab, Oral, BID, 0 Refill(s) Start Date: 09/29/20 Status: Ordered Phenergan 25 mg oral tablet 25 mg = 1 tab, Oral, every 6 hr, PRN as needed for nausea/vomiting, # 20 tab, 0 Refill(s), Pharmacy: [place], [place], [address], cm, 09/29/21 23:03:00 CDT, Height/Length [...] Oral [35.8-37.3 Deg C] 37.1 Deg C (04/14/22 5:16 AM) Peripheral Pulse Rate [60-100 bpm] 89 bp m (04/14/22 5:16 AM) Respiratory Rate [12-24 br/min] 16 br/mi n (04/14/22 5:16 AM) Blood Pressure [90-140/60-90 mmHg] 131/9 1mmHg (04/14/22 5:16 AM) Weight Dosing 74.84 kg (04/14/22 5:28 AM) Weight Estimated 74.84 kg (04/14/22 5:16 AM) Height/Length Dosing 157.480 cm (04/14/22 5:28 AM) Height/Length Estimated 157.480 cm (04/14/22 5:16 AM) Social History Social History Type Response Smoking Status 5-9 cigarettes (betw een 1/4 to 1/2 pack)/day in last 30 days entered on: 05/12/21 Sex Hospital Discharge Instructions Patient Education 04/14/2022 05:47:33 Migraine Headache Migraine Headache A migraine headache [...] these instructions at home: Medicines ??? Take wcgl-zke-apdtuqa and prescription medicines only as told by your health care provider. ??? Ask your health care provider if the medicine prescribed to you: ??? Requires you to avoid driving or using heavy machinery. ??? Can cause constipation. You may need to take these actions to prevent or treat constipation: ??? Drink enough fluid to keep your urine pale yellow. ??? Take khbt-ncg-iiujugy or prescription medicines. ??? Eat foods that [...] provider. Document Revised: 06/28/2019 Document Reviewed: 04/18/2019 Subject Company Patient Education ?? 2021 [employer]. Follow Up Care 04/14/2022 05:16:53 With:Hermes Ramirez MD Address: [address] [place] [address], [address] [place] [address]- When:2 to 4 days Comments:If you develop fever, vomiting,??stiff neck,??weakness or new concerning symptoms, return to the emergency department. Physician Emergency department Note * Akil Casas MD: PERFORM Event Display: ED Note Physician Authored Date: [id number] MISHA JACKSON :1980 Age:41 years Sex:Female Visit Date:04/14/2022 Primary Care Physician: Hermes Ramirez MD Basic Information Time Seen: Akil Casas MD / 04/14/2022 05:32 Chief Complaint Pt arrives to ED with c/o headache that started yesterday evening. Took Fiorcet at 2230 without relief. 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 ??She states that she took some??Fioricet??last night but it did not help her symptoms.??She states that she is??nauseated??but has had no vomiting.?? She denies fever and recent illness.?? Diarrhea she had during her last visit??resolved the next day.?? Headache that she is having todayis typical however she is having eye pain??because she started a new??antirejection drug. She is scheduled to follow- up with transplant team and her neurologist next week. Review of Systems: Constitutional:?No??fevers Eye:?Positive for??recent visual problems ENT:?No??nasal congestion,?No??sore throat Respiratory:?No??shortness of breath,?No??cough Cardiovascular:?No??Chest pain,?No??palpitations,?No??syncope Gastrointestinal:?Nonausea,?No??vomiting,?No??diarrhea Musculoskeletal:??No??back pain,??Positive for??neck pain,??No??joint pain,??No??muscle pain,??No??decreased range of motion Integumentary:?No??rash,?No??pruritus,?No??abrasions Neurologic: No weakness, no numbness Physical Exam Vitals & Measurements T:??37.1?C ??(Oral)?? HR:??89??(Peripheral)?? RR:??16?? BP:??131/91?? SpO2:??98%?? HT:??157.480??cm?? WT:??74.84??kg??(Estimated)?? Pain Score:??10?? O2 Therapy:??Room air?? General: Alert and oriented, well nourished,?Moderate acute distress Eye: PERRL, EOMI,?Normal??conjunctiva HENT: Normocephalic, moist oral mucosa,?No??scleral icterus Neck: Supple, non-tender Lungs: Clear to auscultation,?Non-labored?? respiration Heart:?Normal?? rate,?Regular??rhythm,?No??murmur,?No??gallop,?No??edema Musculoskeletal:?Normal?? range of motion and strength,?No??tenderness,?No??swelling Skin: Skin is warm, dry and pink,?No??rashes,?No??lesions Neurologic: Awake, alert and oriented X4, CN II-XII intact Psychiatric: Cooperative, appropriate mood and affect Procedure No Qualifying Data Assessment/Plan 1.??Migraine headache??G43.909 2.??Eye pain??H57.10 Patient Discharge Condition Good Discharge Disposition Home Patient Education Migraine Headache Follow Up With When Contact Information Hermes Ramirez MD Within 2 to [address] [place] [address] [place] [address] Additional Instructions: If you develop fever, vomiting,??stiff neck,??weakness or new concerning symptoms, return to the [...] Family History Cancer: Mother. Electronically Signed on 04/14/22 05:56 AM Akil Casas MD Patient Care team information Personnel Name: Hermes Ramirez MD Address: Address: [address] [place] [address], [address] [place] [address]
--- OUTSIDE RECORDS SUMMARY | 2024-03-20 11:43 | XMS_ITS | Continuity of Care Document ---
Author Organization [facility] Address [address] [place] [address]- Care Team Providers Care Socially Responsible Investment Adviser Name Role Phone Hermes Ramirez Primary Care Physician Encounter ONOFRE MCGRAW [id number] Date(s): 02/28/23 - 02/28/23 [facility] [address] [place] [address]- Discharge Disposition: Home Allergies, Adverse Reactions, Alerts [...] Daily, # 30 tab, 11 Refill(s), Pharmacy: [place], [place], 157.[address], cm, 01/04/23 15:03:00 CDT, Height/Length [...] BID, # 60 cap, 11 Refill(s), Pharmacy: [place], [place], [address], cm, 01/04/23 15:03:00 CDT, Height/Length [...] information Care Team Personnel Name: Jessee Jones COLLEGE FOOTBALL COACH Position: Physician Member Role: Nurse Practitioner Address: Address: [address] [facility], [address] [place] [address]- Name: Latoya Marquez [employer]LEGE FOOTBALL COACH Position: Physician Member Role: Nurse Practitioner Address: Address: [address] [place] [address]- Name: Leonila Gonzalez [employer]LE[employer]OTB[employer] COACH Position: Physician Member Role: Nurse Practitioner Address: Address: [address] [place] [address]- Name: Beth Brandt [employer]LE[employer]OTBALL COACH Position: Physician Member Role: Nurse Practitioner Address: Address: [address] [place] [address] [place] [address] Name: Hermes Ramirez MD Position: Physician Member Role: Primary Care Physician Address: Address: [address] [facility], [address] [place] [address]- Name: Anamika Gore MD Position: Physician - Women's Health Member Role: Informed Provider Name: Pillo Moe [employer]LE[employer]OTB[employer] COACH Position: Physician Member Role: Nurse Practitioner Address: [facility] [address] [facility] [address] [facility] Care Team Related Persons Name: STACIA JONES Address: Home [address] [place], [place] [id number] Name: ROBYN JAMA Address: Home
--- OUTSIDE RECORDS SUMMARY | 2024-03-20 11:43 | XMS_ITS | Continuity of Care Document ---
Author Organization [facility] Address [address] [place] [address] Care Team Providers Care Police Captain Precinct Name Role Phone Hermes Ramirez Primary Care Physician Encounter [facility] [id number] Date(s): 07/26/23 - 07/26/[address] [address]- [place] Encounter Diagnosis Headache, chronic migraine without aura(Discharge Diagnosis) - 07/26/23 Chronic back pain(Discharge Diagnosis) - 07/26/23 Other [...] from: Title:ED Provider Note Author:Jesus Khan MD Date:07/26/23 Assessment/Plan 1.??Chronic back pain??M54.9 2.??Headache, chronic migraine without aura??G43.709 Other chronic pain??G89.29 Orders: Benadryl, 50 mg = 1 mL, Intramuscular, Injection, Once, First Dose: 07/27/23 0:00:00 CDT, Stop Date: 07/27/23 0:00:00 CDT, Physician Stop, Routine Phenergan, 25 mg = 1 mL, Intramuscular, Injection, Once, First Dose: 07/27/23 0:00:00 CDT, Stop Date: 07/27/23 0:00:00 CDT, Physician Stop, Routine Chronic migraine headache. ??Chronic back pain.?? Mention to patient??that I was??going to give her only Phenergan??and Benadryl. ??I will not be??giving her??narcotics for her??pain.?? She??comes to the ER??frequently??with same symptoms and also??requesting some pain medication. ??Instructed to needs to see the pain clinic??and also follow-up with neurologist and with neurosurgeon. Patient Discharge Condition Stable Discharge Disposition Discharge home Patient Education Chronic Migraine Headache, Sgwy-na-Tmaw Chronic Back Pain, Roaa-mr-Qgcv Follow Up With When Contact Information Hermes Ramirez MD Within 1 week [address] [facility], [address] [place] [address]- ?? Additional Instructions: Instructed to follow-up with pain clinic, also with??neurology??and??neurosurgeon??to address??these chronic??problems. Future Appointments Future Scheduled Tests Radiology* MG [...] Daily, # 30 tab, 11 Refill(s), Pharmacy: [facility] [place], [place], 157.48, cm, 01/04/23 15:03:00 CDT, Height/Length Dosing, 81.65, kg, 01/04/23 15:03:00 CDT, Weight Dosing Start Date: 01/11/23 Status: Ordered aspirin 81 mg oral delayed release tablet 81 mg = 1 tab, Oral, Daily, # 30 tab, 0 Refill(s) Start Date: 04/05/21 Status: Ordered gabapentin 300 mg oral capsule 600 mg = 2 cap, Oral, BID, # 120 cap, 2 Refill(s), Pharmacy: [id number] [place], 157.48, cm, 07/23/23 17:59:00 CDT, Height, [...] BID, # 60 cap, 11 Refill(s), [facility] [facility] [place], 157.48, cm, 01/04/23 15:03:00 CDT, Height/Length Dosing, 81.65, kg, 01/04/23 15:03:00 CDT, Weight Dosing Start Date: 01/11/23 Status: Ordered pantoprazole 40 mg oral delayed release tablet 1 tab, Oral, Daily, # 90 tab, 0 Refill(s), Pharmacy: [id number], 157.48, cm, 06/07/23 16:07:00 CDT, Height, 89.36, [...] Oral [35.8-37.3 Deg C] 36.9 Deg C (07/26/23 10:54 PM) Peripheral Pulse Rate [60-100 bpm] 77 bp m (07/26/23 10:54 PM) Respiratory Rate [12-24 br/min] 18 br/mi n (07/26/23 10:54 PM) Blood Pressure [90-140/60-90 mmHg] 156/9 5mmHg *HI* (07/26/23 10:54 PM) Mean Arterial Pressure, Cuff [65-140 mmH g] 115 mmHg (07/26/23 10:54 PM) Weight 81.65 kg (07/26/23 10:54 PM) Weight Dosing 81.650 kg (07/26/23 10:54 PM) Height 157.48 cm (07/26/23 10:54 PM) Body Mass Index 32.92 kg/m2 (07/26/23 10:54 PM) Social History Social History Type Response Tobacco Current everyday tob acco user Tobacco Use:. Sex Hospital Discharge Instructions Patient Education 07/26/2023 23:14:19 Chronic Migraine Headache, Cayt-ew-Jgzq Chronic Migraine Headache A migraine headache is [...] these instructions at home: Medicines ??? Take ktdf-kqu-watokbh and prescription medicines only as told by [...] Headache and Migraine Patients (CHAMP): headachemigraine.org ??? [employer] Migraine Foundation: americanmigrainefoundation.org ??? National Headache Foundation: [...] provider. Document Revised: 08/18/2022 Document Reviewed: 04/22/2020 [employer] Patient Education ?? 2022 [employer] 07/26/2023 23:14:03 Chronic Back Pain, Thjz-uy-Ttui Chronic Back Pain Chronic back pain is back pain that lasts longer than 3 months. The pain may get worse at certain times (flare-ups). There are things you can do at home to manage your pain. Follow these instructions at home: Watch for any changes in your symptoms. Take these actions to help with your pain: Managing pain and stiffness ??? If told, put ice on the painful area. You may be told to use ice for 24???48 hours after a flare-up starts. ??? Put ice in a plastic bag. ??? Place a towel between your skin and the bag. ??? Leave the ice on for 20 minutes, 2???3 times a day. ??? If told, put heat on the painful area. Do this as often as told by your doctor. Use the heat source that your doctor recommends, such as a moist heat pack or a heating pad. ??? Place a towel between your skin and the heat source. ??? Leave the heat on for 20???30 minutes. ??? If your skin turns bright red, take off the ice or heat right away to prevent skin damage. The risk of damage is higher if you cannot feel pain, heat, or cold. ??? Soak in a warm bath. This can help with pain. Activity ??? Avoid bending and other activities that make the pain worse. ??? When you stand: ??? Keep your upper back and neck straight. ??? Keep your shoulders pulled back. ??? Avoid slouching. ??? When you sit: ??? Keep your back straight. ??? Relax your shoulders. Do not round your shoulders or pull them backward. ??? Do not sit or assisted living manager one place for too long. ??? Take short rest breaks during the day. Lying down or standing is often better than sitting. Resting can help relieve pain. ??? When sitting or lying down for a long time, do some mild activity or stretching. This will helpto prevent stiffness and pain. ??? Get regular exercise. Ask your doctor what activities are safe for you. ??? You may have to avoid lifting. Ask your provider how much you can safely lift. ??? If you lift things: ??? Bend your knees. ??? Keep the weight close to your body. ??? Avoid twisting. Medicines ??? Take zrqc-qtk-sqyycme and prescription medicines only as told by your doctor. ??? You may need to take medicines for pain and swelling. These may be taken by mouth or put on theskin. You may also be given muscle relaxants. ??? Ask your doctor if the medicine prescribed to you: ??? Requires you to avoid driving or using machinery. ??? Can cause trouble pooping (constipation). You may need to take these actions to prevent or treat trouble pooping: ??? Drink enough fluid to keep your pee (urine) pale yellow. ??? Take ahek-dvz-dsfgwra or prescription medicines. ??? Eat foods that are high in fiber. These include beans, whole grains, and fresh fruits and vegetables. ??? Limit foods that are high in fat and sugars. These include fried or sweet foods. General instructions ??? Sleep on a firm mattress. Try lying on your side with your knees slightly bent. If you lie on your back, put a pillow under your knees. ??? Do not smoke or use any products that contain nicotine or tobacco. If you need help quitting, ask your doctor. Contact a doctor if: ??? Your pain does not get better with rest or medicine. ??? You have new pain. ??? You have a fever. ??? You lose weight quickly. ??? You have trouble doing your normal activities. ??? One or both of your legs or feet feel weak. ??? One or both of your legs or feet lose feeling (have numbness). Get help right away if: ??? You are not able to control when you pee or poop. ??? You have bad back pain and: ??? You feel like you may vomit (nauseous). ??? You vomit. ??? You have pain in your chest or your belly (abdomen). ??? You have shortness of breath. ??? You faint. These symptoms may be an emergency. Get help right away. Call 911. ??? Do not wait to see if the symptoms will go away. ??? Do not drive yourself to the hospital. This information is not intended to replace advice given to you by your health care provider. Make sure you discuss any questions you have with your health care provider. Document Revised: 10/24/2022 Document Reviewed: 10/24/2022 Elsevier Patient Education ?? 2022 [employer] Follow Up Care 07/26/2023 22:47:14 With:Hermes Ramirez MD Address: [address] [place] [address], [address] [place] [address]- When:1 week Comments:Instructed to follow-up with pain clinic, also with??neurology??and??neurosurgeon??to address??these chronic??problems. Physician Emergency department Note * Jesus Khan MD: PERFORM Event Display: ED Note Physician Authored Date: [id number] MISHA JACKSON :1980 Age:42 years Sex:Female Visit Date:07/26/2023 Primary Care Physician: Hermes Ramirez MD Basic Information Time Seen: Jesus Khan MD / 07/26/2023 22:56 Chief Complaint pt c/o normal migraine for threedays and back hurting ??chronic going to see PT took tylenol prehosp History Of Present Illness: 42 years old??female??comes in complaining??of??migraine headache??(which is??her chronic??problem)also??mentions that she has??recurrence of her back pain (chronic back pain).?? Patient??has multiple??ER visits??with??same??problem.?? 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 Mention to patient that??we are not cannot keep giving her narcotics every time she comes tot ER,??(has multiple visits).?? Will give her Benadryl??50 mg IM and Phenergan 25 mg IM.?? Patient not completely satisfied but mentions that she will take.?? Told her that she needed to follow-up w ith??pain clinic??to assess better this??chronic back pain, or see??neurologist or neurosurgeon.?? Neurologist??for??her chronic migraines. Review of Systems: Constitutional:?No??fevers,?No??chills,?No??sweats;??migraine headache Eye:?No??recent visual problems ENT:?No??ear pain,?No??nasal congestion,?No??sore throat Respiratory:?No??shortness of breath,?No??cough Cardiovascular:?No??Chest pain,?No??palpitations,?No??syncope Gastrointestinal:?Nonausea,?No??vomiting,?No??diarrhea Genitourinary:?No??hematuria Clemente/Lymph:?No??bruising tendency,?No??swollen lymph glands Endocrine:?No??excessive thirst,??No??excessive hunger Musculoskeletal:??Positive for??back pain,??this is chronic). no??neck pain,??No??joint pain,??No??muscle pain,??No??decreased range of motion Integumentary:?No??rash,?No??pruritus,?No??abrasions Neurologic: Alert & oriented X 4 Psychiatric:?No??anxiety,?No??depression Physical Exam Vitals & Measurements T:??36.9?C ??(Oral)?? HR:??77??(Peripheral)?? RR:??18?? BP:??156/95?? SpO2:??100%?? HT:??157.48??cm?? WT:??81.65??kg?? BMI:??32.92?? Pain Score:??8?? General: Alert and oriented, well nourished,?No??acute distress [...] No Qualifying Data Assessment/Plan 1.??Chronic back pain??M54.9 2.??Headache, chronic migraine without aura??G43.709 Other chronic pain??G89.29 Orders: Benadryl, 50 mg = 1 mL, Intramuscular, Injection, Once, First Dose: 07/27/23 0:00:00 CDT, Stop Date: 07/27/23 0:00:00 CDT, Physician Stop, Routine Phenergan, 25 mg = 1 mL, Intramuscular, Injection, Once, First Dose: 07/27/23 0:00:00 CDT, Stop Date: 07/27/23 0:00:00 CDT, Physician Stop, Routine Chronic migraine headache. ??Chronic back pain.?? Mention to patient??that I was??going to give heronly Phenergan??and Benadryl. ??I will not be??giving her??narcotics for her??pain.?? She??comes tothe ER??frequently??with same symptoms and also??requesting some pain medication. ??Instructed to needs to see the pain clinic??and also follow-up with neurologist and with neurosurgeon. Patient Discharge Condition Stable Discharge Disposition Discharge home Patient Education Chronic Migraine Headache, Ogdx-vb-Xgzp Chronic Back Pain, Zhjq-zf-Hltk Follow Up With When Contact Information Hermes Ramirez MD Within 1 week [facility], [address] [place] [address]- Additional Instructions: Instructed to follow-up with pain clinic, also with??neurology??and??neurosurgeon??to address??these chronic??problems. Medication Reconciliation Unchanged amLODIPine (amLODIPine 5 mg [...] Liver transplantation (05/08/2020)???Mammogram (2020)??? delivery???cyst removal from [facility]???[facility]???liver transplant Allergies NSAIDs Toradol??(Kidney failure as a complication of care) aspirin??(Medication interaction) azithromycin??(Unknown) codeine??(Unknown, Itching) gentamicin morphine??(redness, Itching) erythromycin??(Medication interaction) Social History Alcohol Never Electronic Cigarette/Vaping Electronic Cigarette Use: Never. Substance Use Never Tobacco Current everyday tobacco user Tobacco Use:.- Comments: Pt states that she smokes half a pack a day. Family History Cancer: Mother. Attending Attestation Follow-up with PCP, follow-up with neurology, follow-up with neurosurgery. Electronically Signed on 07/26/23 11:15 PM Jesus Khan MD Patient Care team information Care Team Personnel Name: Jessee Jones CENTRAL OFFICE REPAIRER Position: Physician Member Role: Nurse Practitioner Address: Address: [address] [place] [address], [address] Name: Latoya Marquez CENTRAL OFFICE REPAIRER Position: Physician Member Role: Nurse Practitioner Address: Address: [address] [place] [address] Name: Leonila Gonzalez CENTRAL OFFICE REPAIRER Position: Physician Member Role: Nurse Practitioner Address: Address: [address] [place] [address] Name: Beth Brandt CENTRAL OFFICE REPAIRER Position: Physician Member Role: Nurse Practitioner Address: Address: [address] [place] [address] Name: Hermes Ramirez MD Position: Physician Member Role: Informed Provider Address: Address: [address] [place] [address], [address] [place] [address]- Name: Pillo Moe NP Position: Physician Member Role: Nurse Practitioner Address: Address: [address] [place] [address], [address] [facility] Care Team Related Persons Name: STACIA JONES Address: [place] [id number] Name: NAIF CHOI Name: MADY CHEN
--- OUTSIDE RECORDS SUMMARY | 2024-03-20 11:43 | XMS_ITS | Continuity of Care Document ---
Author Organization [facility] Address [address] [place] [address] Care Team Providers Care Marketing Financial Analyst Name Role Phone Hermes Ramirez Primary Care Physician Encounter [facility] [id number] Date(s): 02/01/24 - 02/01/[address] [address]- [place] Encounter Diagnosis Shoulder joint pain(Discharge Diagnosis) - 02/01/24 Discharge Disposition: Home or Self Care Attending Physician: Maryam Cortés MD Admitting Physician: Maryam Cortés MD Allergies, Adverse Reactions, Alerts Substance Criticality [...] and Plan Extracted from: Title:ED Provider Note Author:Maryam Cortés MD Date:02/01/24 Assessment/Plan 1.??Shoulder joint pain??M25.519 Orders: Discharge Patient, 02/01/24 16:33:00 MAINTENANCE TECHNICIAN 2ND SHIFT Patient Discharge Condition Stable. Discharge Disposition Home. Patient Education Shoulder Pain, Eltq-ai-Trqi Follow Up With When Contact Information Hermes Ramirez MD Within 3 to 5 days [address] [facility], [address] [place] [address]- ?? Additional Instructions: Future Appointments Future Scheduled [...] Daily, # 30 tab, 11 Refill(s), Pharmacy: [place], [place], 157.48, cm, 01/04/23 15:03:00 CDT, Height/Length [...] BID, # 120 cap, 2 Refill(s), Pharmacy: [id number] [place], 157.48, cm, 07/23/23 17:59:00 CDT, Height, 88.45, [...] BID, # 60 cap, 11 Refill(s), Pharmacy: [place], [place], 157.48, cm, 01/04/23 15:03:00 CDT, Height/Length Dosing, 81.65, kg, 01/04/23 15:03:00 CDT, Weight Dosing Start Date: 01/11/23 Status: Ordered nicotine 21 mg/24 hr transdermal film, extended release 1 patches, Transdermal, Daily, # 14 patches, 1 Refill(s), Pharmacy: [id number], 157.48, cm, 01/01/24 14:49:00 CDT, Height, 87.09, kg, 01/01/24 14:53:00 CDT, Weight Dosing Start Date: 01/01/24 Status: Ordered Nicotrol Inhaler 10 mg inhalation device See Instructions, 6-16 cartriges/day, # 1 EA, 2 Refill(s), Pharmacy: [id number], 157.48, cm, 08/29/23 14:22:00 CDT, Height, 88, kg, 08/29/23 14:27:00 CDT, Weight Dosing Start Date: 08/29/23 Status: Ordered pantoprazole 40 mg oral delayed release tablet 1 tab, Oral, Daily, # 90 tab, 0 Refill(s), Pharmacy: [id number], 157.48, cm, 06/07/23 16:07:00 CDT, Height, 89.36, kg, 06/19/23 15:32:00 CDT, Weight Dosing Start Date: 06/20/23 Status: Ordered Pepcid 20 mg oral tablet 20 mg = 1 tab, Oral, BID, 0 Refill(s) Start Date: 09/29/20 Status: Ordered sucralfate 1 g oral tablet 1 tab, Oral, QID, # 360 tab, 0 Refill(s), Pharmacy: [id number], 157.48, cm, 08/29/23 14:22:00 CDT, Height, 88, kg, 08/29/23 14:27:00 CDT, Weight Dosing Start Date: 09/05/23 Status: Ordered venlafaxine 37.5 mg oral capsule, extended release 37.5 mg = 1 cap, Oral, Daily, # 90 cap, 0 Refill(s), Pharmacy: [id number] [place], 157.48, cm, 09/28/23 18:18:00 CDT, Height, 81.65, kg, 09/28/23 18:20:00 CDT, Weight Dosing Start Date: 11/22/23 Status: Ordered Mental Status 02/01/24 Eye Opening Response Yanira Spontaneous ly Best Verbal Response Yanira Oriented Best Motor Response [place] Obeys comman ds Yanira Coma Score 15 Problem List Condition Confirmation [...] Oral [35.8-37.3 Deg C] 36.9 Deg C (02/01/24 4:12 PM) Peripheral Pulse Rate [60-100 bpm] 73 bp m (02/01/24 4:12 PM) Respiratory Rate [12-24 br/min] 18 br/mi n (02/01/24 4:12 PM) Blood Pressure [90-120/60-80 mmHg] 159/9 2mmHg *HI* (02/01/24 4:12 PM) Mean Arterial Pressure, Cuff [65-140 mmH g] 114 mmHg (02/01/24 4:12 PM) Weight Estimated 83 kg (02/01/24 4:12 PM) Body Mass Index Estimated 33.67 kg/m2 (02/01/24 4:12 PM) Height/Length Estimated 157 cm (02/01/24 4:12 PM) Social History Social History Type Response Tobacco Current everyday tob acco user Tobacco Use:. Sex Sex Representation Female (finding) Hospital Discharge Instructions Patient Education 02/01/2024 16:31:13 Shoulder Pain, Zime-xe-Uvnr Shoulder Pain Many things can cause shoulder [...] strengthen the arm. General instructions ??? Take xnpg-ivd-cxixtpa and prescription medicines only as told by [...] provider. Document Revised: 10/07/2022 Document Reviewed: 10/07/2022 Else[employer] Patient Education ?? 2022 [employer]. Follow Up Care 02/01/2024 16:05:45 With:Hermes Ramirez MD Address: [address] [place] [address], [address] [place] [id number]- When:3 to 5 days Physician Emergency department Note * Maryam Cortés MD: PERFORM Event Display: ED Note Physician Authored Date: [id number] RENETTA MISHA A :1980 Age:43 years Sex:Female Visit Date:02/01/2024 Primary Care Physician: Hermes Ramirez MD Basic Information Time Seen: Maryam Cortés MD / 02/01/2024 16:25 Chief Complaint Pt to ED with c/o right shoulder pain. Sts she had and appt with Ortho to follow up on her MRI results and has increased pain after the shoulder was moved around. Sts she was advised to f/u with her transplant team to get a pain med reg. History Of Present Illness: Patient is a 43 y/o F with PMH of liver transplant at ER for complaints of having shoulder pains, worse on the R and rated 7/10. She reports having a fall with shoulder injury about 1 month ago. She went to see Ortho MD for f/u today who moved the shoulders around aggravating the pain. The pain is described as achy, continuous, aggravated by movement. Ortho MD is consulting with transplant team to decide which pain meds??to put her on. Review of Systems: Constitutional:?No??fevers,?No??chills,?No??sweats Eye:?No??recent visual problems ENT:?No??ear pain,?No??nasal congestion,?No??sore throat Respiratory:?No??shortness of breath,?No??cough Cardiovascular:?No??Chest pain,?No??palpitations,?No??syncope Gastrointestinal:?Nonausea,?No??vomiting,?No??diarrhea Genitourinary:?No??hematuria Clemente/Lymph:?No??bruising tendency,?No??swollen lymph glands Endocrine:?No??excessive thirst,??No??excessive hunger Musculoskeletal:??No??back pain,??No??neck pain,??Positive for??shoulder joint pain,??No??muscle pain,??No??decreased range of motion Integumentary:?No??rash,?No??pruritus,?No??abrasions Neurologic: Alert & oriented X 4 Psychiatric:?No??anxiety,?No??depression Physical Exam Vitals & Measurements T:??36.9?C ??(Oral)?? HR:??73??(Peripheral)?? RR:??18?? BP:??159/92?? SpO2:??99%?? HT:??157??cm?? WT:??83??kg??(Estimated)?? BMI:??33.67?? Pain Score:??8?? O2 Therapy:??Room air?? General: Alert and oriented, well nourished,?No??acute distress Eye: PERRL, EOMI,?Normal?conjunctiva HENT: Normocephalic, clear tympanic membranes,?Normal? hearing, moist oral mucosa,?No??scleral icterus,?No??sinus tenderness Neck: Supple, non-tender,?No??carotid bruits,?No??JVD,?No??lymphadenopathy Lungs:??Clear to auscultation?? Respiration:??Non-Labored Heart:?Normal? rate,?Regular??rhythm,?No??murmur,?No??gallop,?No??edema Abdomen: Soft, non-tender, non-distended,?Normal? bowel sounds,?No??masses Musculoskeletal:?Normal? range of motion and strength,?Positive for??diffuse vague tenderness bilateral shoulders,?No??swelling Skin: Skin is warm, dry and pink,?No??rashes,?No??lesions Neurologic: Awake, alert and oriented X4, CN II-XII intact Psychiatric: Cooperative, appropriate mood and affect Medical Decision Makin - Patient requesting Morphine for pain and it was denied. She declined Vistaril IM. She was discharged home, to continue current medications including Gabapentin. Procedure No Qualifying Data Assessment/Plan 1.??Shoulder joint pain??M25.519 Orders: Discharge Patient, 02/01/24 16:33:00 MAINTENANCE TECHNICIAN 2ND SHIFT Patient Discharge Condition Stable. Discharge Disposition Home. Patient Education Shoulder Pain, Kpyj-vz-Pctq Follow Up With When Contact Information Hermes Ramirez MD Within 3 to [address] [place] [address] [address] Additional Instructions: Medication Reconciliation Unchanged amLODIPine (amLODIPine [...] (given by mouth) every day.Refills: 0. ?? sucralfate (sucralfate 1 g oral tablet)1 [...] Family History Cancer: Mother. Electronically Signed on 02/01/2024 16:35 MAINTENANCE TECHNICIAN 2ND SHIFT Maryam Cortés MD Patient Care team information Care Team Personnel Name: Jessee Jones REC THERAPIST Position: Physician Member Role: Nurse Practitioner Address: [address] [place] [address], [address] [place] [address] Name: Latoya Marquez NP Position: Physician Member Role: Nurse Practitioner Address: [address] [place] [address]- Name: Leonila Gonzalez REC THERAPIST Position: Physician Member Role: Nurse Practitioner Address: [address] [place] [address] Name: Beth Brandt REC THERAPIST Position: Physician Member Role: Nurse Practitioner Address: [address] [place] [address] [place] [address] Name: Hermes Ramirez MD Position: Physician Member Role: Informed Provider Address: [address] [place] [address], [address] [place] [address]- Name: Pillo Moe REC THERAPIST Position: Physician Member Role: Nurse Practitioner Address: [address] [place] [address], [address] [facility] Care Team Related Persons Name: STACIA JONES Name: ROBYN JAMA Name: NAIF CHOI Name: MADY CHEN Name: MADY CHEN Insurance Providers Guarantor name: MISHA JACKSON Health Plan Information #: 1 Payer: [facility] MEDICA[facility] D CARE Member Number: [id number] Policy Number: NA Health Plan Information #: 2 Payer: [employer] APPROVED Member Number: [id number] Policy Number: NA Health Plan Information #: 3 Payer: MISC Workers Comp Member Number: NA Policy Number: NA
--- OUTSIDE RECORDS SUMMARY | 2024-03-20 11:43 | XMS_ITS | Continuity of Care Document ---
Author Organization [facility] Address [address] [place] [address] Care Team Providers Care Building Cleaning Supervisor Name Role Phone Hermes Ramirez Primary Care Physician Encounter ONOFRE MCGRAW [id number] Date(s): 08/24/23 - 08/24/[address] [address]- [place] Discharge Disposition: Home or Self Care Attending Physician: Hermes Ramirez MD Admitting Physician: Hermes Ramirez MD Allergies, Adverse Reactions, Alerts Substance Reaction Severity Status codeine Unknown Itching Severe Active gentamicin Moderate Active NSAIDs Severe Active erythromycin Medication interaction [...] Daily, # 30 tab, 11 Refill(s), Pharmacy: [facility] [place], [place], 157.48, cm, 01/04/23 15:03:00 CDT, Height/Length Dosing, 81.65, kg, 01/04/23 15:03:00 CDT, Weight Dosing Start Date: 01/11/23 Status: Ordered aspirin 81 mg oral delayed release tablet 81 mg = 1 tab, Oral, Daily, # 30 tab, 0 Refill(s) Start Date: 04/05/21 Status: Ordered gabapentin 300 mg oral capsule 600 mg = 2 cap, Oral, BID, # 120 cap, 2 Refill(s), Pharmacy: [id number] [place], 157.48, cm, 07/23/23 17:59:00 CDT, Height, 88.45, [...] BID, # 60 cap, 11 Refill(s), Pharmacy: [place], [place], 157.48, cm, 01/04/23 15:03:00 CDT, Height/Length Dosing, 81.65, kg, 01/04/23 15:03:00 CDT, Weight Dosing Start Date: 01/11/23 Status: Ordered pantoprazole 40 mg oral delayed release tablet 1 tab, Oral, Daily, # 90 tab, 0 Refill(s), Pharmacy: [id number], 157.48, cm, 06/07/23 16:07:00 CDT, Height, 89.36, [...] QID, # 360 tab, 0 Refill(s), Pharmacy: [id number], 157.48, cm, 06/07/23 16:07:00 CDT, Height, 89.36, [...] Exam Date Time Procedure Performing Provider Status 6/6/24 8:04 AM MG Mammo Diagnostic Bilateral w/ Chad Chris French RT(R)(M)(CT)(ARRT); Auth (Verified) Notes: (MG Mammo Diagnostic Bilateral w/ Chad) Reason For Exam: SIX MONTH FOLLOW UP ABNORMAL MAMMOGRAM MG Mammo Diagnostic Bilateral w/ Chad - MG MAMMO DIAGNOSTIC BILATERAL W/ CHAD - US BREAST LIMITED LEFT BILATERAL DIGITAL DIAGNOSTIC MAMMOGRAM 3D/2D WITH CAD WITH MEDIOLATERAL OBLIQUE CRANIOCAUDAL AND LEFT ULTRASOUND: 08/24/2023 The study was acquired using full field digital technology and interpreted from soft copy. Current study was also evaluated with ICAD version 7.2. 2D digital mammographic views, as well as 3D digital tomosynthesis were performed in the CC and MLO projections. CLINICAL: Patient presents for a six month follow up abnormality seen left breast on CT Scan. Patient has no complaints. No personal history of cancer. No family history of breast cancer. Patient unsure of date of last CBE. Patient returns today to evaluate a density in the left breast. COMPARISONS: Comparison is made to exams dated: 02/24/2023, 02/24/2023 [facility], 02/18/2023 [facility], 03/16/2017, and 03/16/2017 [facility]. BREAST TISSUE:The tissue of both breasts is heterogeneously dense. This may lower the sensitivity of mammography. FINDINGS: BILATERAL DIAGNOSTIC MAMMOGRAM: There is a stable focal asymmetry at the 4 o'clock position of the right breast posteriorly. No sonographic lesion was seen previously. This will continue to be classified as probably benign. There is also a focal asymmetry at the 2 o'clock position of the left breast, middle depth whichIs less prominent on the current examination. No other significant masses, calcifications, or other findings are seen in either breast on the mammogram. Further evaluation was obtained with sonography. TARGETED LEFT BREAST ULTRASOUND: At the 2 o'clock position of the left breast, 5 cm from the nipple, 2 adjacent hypoechoic lesions are seen measuring 1.6 cm and 0.9 cm in size, previously 1.4 cm and 1 cm. These could be areas of complex cysts and fibrocystic change within dense breast tissue. These will continue to be classified as probably benign. IMPRESSION: OVERALL STUDY BIRADS: 3 PROBABLY BENIGN Focal asymmetry in the right breast is stable and will continue to be classified as probably benign. Mammographic asymmetry and sonographic lesions in the left breast are stable and will also continue to be classified as probably benign. A follow-up bilateral diagnostic mammogram and a left breast ultrasound in 6 months are recommended to demonstrate stability. The results and recommendations were discussed with the patient. Electronically signed by: Bill Del Valle M.D. ll/:08/24/2023 08:42:23 Commissioning Manager(s): RT Chandan (R)(M)(CT), [facility]; MAYRA Galindo, [facility] letter sent: Birad 3 Followup Reading location: [facility] OVERALL STUDY BIRADS: 3 Probably benign Final Dictated by: Bill Del Valle MD Dictated DT/TM: 08/24/2023 3:39 pm Signed by: Bill Del Valle MD Signed (Electronic Signature): 08/24/2023 3:39 pm * Exam Date Time Procedure Performing Provider Status 08/24/23 8:40 AM US Breast Limited Left Kevinkenyonreilly Maria C RDMS(AB SPREADER BOX OPERATOR) RVT(VT) RDCS(AE); Auth (Verified) Notes: (US Breast Limited Left) Reason For Exam: SIX MONTH FOLLOW UP ABNORMAL MAMMOGRAM US Breast Limited Left - MG MAMMO DIAGNOSTIC BILATERAL W/ CHAD - US BREAST LIMITED LEFT BILATERAL DIGITAL DIAGNOSTIC MAMMOGRAM 3D/2D WITH CAD WITH MEDIOLATERAL OBLIQUE CRANIOCAUDAL AND LEFT ULTRASOUND: 08/24/2023 The study was acquired using full field digital technology and interpreted from soft copy. Current study was also evaluated with ICAD version 7.2. 2D digital mammographic views, as well as 3D digital tomosynthesis were performed in the CC and MLO projections. CLINICAL: Patient presents for a six month follow up abnormality seen left breast on CT Scan. Patient has no complaints. No personal history of cancer. No family history of breast cancer. Patient unsure of date of last CBE. Patient returns today to evaluate a density in the left breast. COMPARISONS: Comparison is made to exams dated: 02/24/2023, 02/24/2023 [facility], 02/18/2023 [facility], 03/16/2017, and 03/16/2017 [facility]. BREAST TISSUE:The tissue of both breasts is heterogeneously dense. This may lower the sensitivity of mammography. FINDINGS: BILATERAL DIAGNOSTIC MAMMOGRAM: There is a stable focal asymmetry at the 4 o'clock position of the right breast posteriorly. No sonographic lesion was seen previously. This will continue to be classified as probably benign. There is also a focal asymmetry at the 2 o'clock position of the left breast, middle depth whichIs less prominent on the current examination. No other significant masses, calcifications, or other findings are seen in either breast on the mammogram. Further evaluation was obtained with sonography. TARGETED LEFT BREAST ULTRASOUND: At the 2 o'clock position of the left breast, 5 cm from the nipple, 2 adjacent hypoechoic lesions are seen measuring 1.6 cm and 0.9 cm in size, previously 1.4 cm and 1 cm. These could be areas of complex cysts and fibrocystic change within dense breast tissue. These will continue to be classified as probably benign. IMPRESSION: OVERALL STUDY BIRADS: 3 PROBABLY BENIGN Focal asymmetry in the right breast is stable and will continue to be classified as probably benign. Mammographic asymmetry and sonographic lesions in the left breast are stable and will also continue to be classified as probably benign. A follow-up bilateral diagnostic mammogram and a left breast ultrasound in 6 months are recommended to demonstrate stability. The results and recommendations were discussed with the patient. Electronically signed by: Bill Del Valle M.D. ll/:08/24/2023 08:42:23 Commissioning Manager(s): RT Chandan (Hernandez)(M)(CT), [facility]; MAYRA Galindo, [facility] letter sent: Birad 3 Followup Reading location: [facility] OVERALL STUDY BIRADS: 3 Probably benign Final Dictated by: Bill Del Valle MD Dictated DT/TM: 08/24/2023 3:39 pm Signed by: Bill Del Valle MD Signed (Electronic Signature): 08/24/2023 3:39 pm Social History Social History Type Response Tobacco Current everyday tob acco user Tobacco Use:. 1 Sex 1Pt states that she smokes half a pack a day. Patient Care team information Care Team Personnel Name: Jessee Jones NP Position: Physician Member Role: Nurse Practitioner Address: Address: [address] [place] [address], [address] [place] [address]- Name: Latoya Marquez MANAGER BANQUET Position: Physician Member Role: Nurse Practitioner Address: Address: [address] [place] [address]- Name: Leonila Gonzalez MANAGER BANQUET Position: Physician Member Role: Nurse Practitioner Address: Address: [address] [place] [address]- Name: Beth Brandt MANAGER BANQUET Position: Physician Member Role: Nurse Practitioner Address: Address: [address] [place] [address] Name: Hermes Ramirez MD Position: Physician Member Role: Informed Provider Address: Address: [address] [facility], [address] [place] [address]- Name: Pillo Moe MANAGER BANQUET Position: Physician Member Role: Nurse Practitioner Address: Address: [address] [place] [address], [address] [facility] Care Team Related Persons Name: STACIA JONES Address: Home [address] [id number] Name: ROBYN JAMA Name: MADY CHEN Name: MADY CHEN
--- OUTSIDE RECORDS SUMMARY | 2024-03-20 11:43 | XMS_ITS | Continuity of Care Document ---
Author Organization [facility] Address [address] [place] [address] Care Team Providers Care Sales Commissions Analyst Name Role Phone Hermes Ramirez Primary Care Physician [phone] Encounter ONOFRE MCGRAW [id number] Date(s): 04/29/23 - 04/29/[address] [address]- [place] Encounter Diagnosis Headache, migraine, intractable(Discharge Diagnosis) - 04/29/23 Discharge Disposition: Home or Self Care Attending [...] from: Title:ED Provider Note Author:Jesus Khan MD Date:04/29/23 Assessment/Plan 1.??Headache, migraine, intractable??G43.919 Orders: Benadryl, 50 mg = 1 mL, Intramuscular, Injection, Once, First Dose: 04/29/23 3:00:00 PHOTOVOLTAIC INSTALLATION TECHNICIAN, Stop Date: 04/29/23 3:00:00 PHOTOVOLTAIC INSTALLATION TECHNICIAN, Physician Stop, Routine morphine, 2 mg = 1 mL, Intramuscular, Injection, Once, First Dose: 04/29/23 3:00:00 PHOTOVOLTAIC INSTALLATION TECHNICIAN, Stop Date: 04/29/23 3:00:00 PHOTOVOLTAIC INSTALLATION TECHNICIAN, Physician Stop, Routine Phenergan, 25 mg = 1 mL, Intramuscular, Injection, Once, First Dose: 04/29/23 3:00:00 PHOTOVOLTAIC INSTALLATION TECHNICIAN, Stop Date: 04/29/23 3:00:00 PHOTOVOLTAIC INSTALLATION TECHNICIAN, Physician Stop, Routine Patient Discharge Condition Stable Discharge Disposition Discharge home??follow-up with PCP Follow Up With When Contact Information Hermes Ramirez MD Within 1 week [address] [place] [address]- ?? Additional Instructions: Continue other home medications. Future Appointments Future Scheduled Tests Laboratory* Urinalysis [...] tab, 11 Refill(s), Pharmacy: [facility] - [place], [place], 157.48, cm, 01/04/23 15:03:00 CDT, Height/Length [...] BID, # 60 cap, 11 Refill(s), Pharmacy: [place], [place], 157.48, cm, 01/04/23 15:03:00 CDT, Height/Length [...] Range]: 1 Peripheral Pulse Rate [60-100 bpm] 96 bp m (04/29/23 2:28 AM) Respiratory Rate [12-24 br/min] 20 br/mi n (04/29/23 2:28 AM) Blood Pressure [90-140/60-90 mmHg] 146/8 2mmHg *HI* (04/29/23 2:28 AM) Mean Arterial Pressure, Cuff [70-110 mmH g] 103 mmHg (04/29/23 2:28 AM) Weight 81 kg (04/29/23 2:28 AM) Weight Dosing 81.000 kg (04/29/23 2:28 AM) Height 157 cm (04/29/23 2:28 AM) Body Mass Index 32.86 kg/m2 (04/29/23 2:28 AM) Social History Social History Type Response Tobacco Current everyday tob acco user Tobacco Use:. 1 Sex 1Pt states that she smokes half a pack a day. Hospital Discharge Instructions Patient Education 04/29/2023 02:49:39 Chronic Migraine Headache, [id number] Chronic Migraine Headache A migraine headache is [...] these instructions at home: Medicines ??? Take [id number] and prescription medicines only as told by [...] Headache and Migraine Patients (CHAMP): headachemigraine.org ??? [employer] Migraine Foundation: americanmigrainefoundation.org ??? National Headache Foundation: [...] provider. Document Revised: 04/22/2020 Document Reviewed: 04/22/2020 [employer]SezWho Patient Education ?? 2022 [employer]. Follow Up Care 04/29/2023 02:22:38 With:Hermes Ramirez MD Address: [address] [place] [address], [address] [place] [address] When:1 week Comments:Continue other home medications. Physician Emergency department Note * Jesus Khan MD: PERFORM Event Display: ED Note Physician Authored Date: [id number] MISHA JACKSON :1980 Age:42 years Sex:Female Visit Date:04/29/2023 Primary Care Physician: Hermes Ramirez MD Basic Information Time Seen: Jesus Khan MD / 04/29/2023 02:40 Chief Complaint migraine here for 2nd time in 12 hourssays it started this am took tylenol around 2130 pt states mybreasts hurt really really bad like I am going to start my peroid and I dont have a peroid History Of Present Illness: 42 years old female??with chronic migraine headaches.?? Patient was here earlier??same problem??right side migraine. ??She had Phenergan??25 mg Benadryl 50 mg IM.?? States??migraine headache has not let up??as??persists and is more uncomfortable.?? Mention to patient we cannot keep giving her morphine??every time she comes with her migraines.?? Told her she is going??need a note from her doctor??how often??we can give her the medication??because??cannot have it more than once a month.?? She understand??and stated??she will contact her doctor. Review of Systems: Constitutional:?No??fevers,?No??chills,?No??sweats Eye:?No??recent visual problems ENT:?No??ear pain,?No??nasal congestion,?No??sore throat Respiratory:?No??shortness of breath,?No??cough Cardiovascular:?No??Chest pain,?No??palpitations,?No??syncope Gastrointestinal:?Nonausea,?No??vomiting,?No??diarrhea Genitourinary:?No??hematuria Clemente/Lymph:?No??bruising tendency,?No??swollen lymph glands Endocrine:?No??excessive thirst,??No??excessive hunger Musculoskeletal:??No??back pain,??No??neck pain,??No??joint pain,??No??muscle pain,??No??decreased range of motion Integumentary:?No??rash,?No??pruritus,?No??abrasions Neurologic: Alert & oriented X 4 Psychiatric:?No??anxiety,?No??depression Physical Exam Vitals & Measurements HR:??96??(Peripheral)?? RR:??20?? BP:??146/82?? SpO2:??98%?? HT:??157??cm?? WT:??81??kg?? BMI:??32.86?? O2 Therapy:??Room air?? General: Alert and oriented, [...] IM. Procedure No Qualifying Data Assessment/Plan 1.??Headache, migraine, intractable??G43.919 Orders: Benadryl, 50 mg = 1 mL, Intramuscular, Injection, Once, First Dose: 04/29/23 3:00:00 PHOTOVOLTAIC INSTALLATION TECHNICIAN, Stop Date: 04/29/23 3:00:00 PHOTOVOLTAIC INSTALLATION TECHNICIAN, Physician Stop, Routine morphine, 2 mg = 1 mL, Intramuscular, Injection, Once, First Dose: 04/29/23 3:00:00 PHOTOVOLTAIC INSTALLATION TECHNICIAN, Stop Date:04/29/23 3:00:00 PHOTOVOLTAIC INSTALLATION TECHNICIAN, Physician Stop, Routine Phenergan, 25 mg = 1 mL, Intramuscular, Injection, Once, First Dose: 04/29/23 3:00:00 PHOTOVOLTAIC INSTALLATION TECHNICIAN, Stop Date: 04/29/23 3:00:00 PHOTOVOLTAIC INSTALLATION TECHNICIAN, Physician Stop, Routine Patient Discharge Condition Stable Discharge Disposition Discharge home??follow-up with PCP Follow Up With When Contact Information Hermes Ramirez MD Within 1 week [address] [facility], [address] [place] [address]- Additional Instructions: Continue other home [...] Attestation Follow-up with PCP Electronically Signed on 04/29/23 02:49 AM Jesus Khan MD Patient Care team information Care Team Personnel Name: Jessee Jones MOTION STUDY ANALYST Position: Physician Member Role: Nurse Practitioner Address: Address: [address] [place] [address], [address] [place] [address] Name: Latoya Marquez MOTION STUDY ANALYST Position: Physician Member Role: Nurse Practitioner Address: Address: [address] [place] [address] Name: Leonila Gonzalez MOTION STUDY ANALYST Position: Physician Member Role: Nurse Practitioner Address: Address: [address] [place] [address] Name: Beth Brandt MOTION STUDY ANALYST Position: Physician Member Role: Nurse Practitioner Address: Address: [address] [place] [address] Name: Hermes Ramirez MD Position: Physician Member Role: Informed Provider Address: Address: [address] [place] [address], [address] [place] [address] Name: Pillo Moe MOTION STUDY ANALYST Position: Physician Member Role: Nurse Practitioner Address: Address: [address] [place] [address], [address] [facility] Care Team Related Persons Name: STACIA JONES Address: Home [address] [place], [place] [id number] Name: ROBYN JAMA
--- OUTSIDE RECORDS SUMMARY | 2024-03-20 11:43 | XMS_ITS | Continuity of Care Document ---
Author Organization [facility] Address [address] [place] [address] Care Team Providers Care Production Helper Name Role Phone Hermes Ramirez Primary Care Physician Encounter ONOFRE MCGRAW [id number] Date(s): 06/04/22 - 06/04/[address] [address] Encounter Diagnosis Headache, chronic migraine without aura, intractable(Discharge Diagnosis) - 06/04/22 Discharge Disposition: Home or Self Care Attending [...] wheezing, # 6.7 g, 0 Refill(s), Pharmacy: [place], [place], 73, cm, 09/13/21 23:53:00 CDT, Height/Length [...] needed, # 12 cap, 0 Refill(s), Pharmacy: [place], [place], 157, cm, 11/04/21 20:02:00 CDT, Height/Length [...] 18:45:00CST, Height/Length Dosing, 72.57, kg, 02/07/22 18:45:00 CLIENT SERVICES ASSOCIATE, Weight Dosing Start Date: 02/13/22 Status: Ordered morphine 2 mg/mL preservative-free injectable solution 2 mg = 1 mL, IM, Once, 0 Refill(s) Start Date: 05/05/22 Status: Ordered oseltamivir 30 mg oral capsule 30 mg = 1 cap, Oral, BID, # 10 cap, 0 Refill(s), Pharmacy: [place], [place], 157.48, cm, 03/16/22 18:01:00 CLIENT SERVICES ASSOCIATE, Height/Length Dosing, 77.11, kg, 03/16/22 18:01:00 CLIENT SERVICES ASSOCIATE, Weight Dosing Start Date: 03/16/22 Status: Ordered Pepcid 20 mg oral tablet 20 mg = 1 tab, Oral, BID, 0 Refill(s) Start Date: 09/29/20 Status: Ordered Phenergan 25 mg oral tablet 25 mg = 1 tab, Oral, every 6 hr, PRN as needed for nausea/vomiting, # 20 tab, 0 Refill(s), Pharmacy: [place], [place], [address], cm, 09/29/21 23:03:00 CDT, Height/Length [...] Oral [35.8-37.3 Deg C] 36.8 Deg C (06/04/22 9:57 PM) Peripheral Pulse Rate [60-100 bpm] 111 b pm *HI* (06/04/22 9:57 PM) Respiratory Rate [12-24 br/min] 18 br/mi n (06/04/22 9:57 PM) Blood Pressure [90-140/60-90 mmHg] 167/9 8mmHg *HI* (06/04/22 9:57 PM) Weight Dosing 77.00 kg (06/04/22 10:07 PM) Weight Estimated 77.00 kg (06/04/22 9:57 PM) Height/Length Dosing 157.000 cm (06/04/22 10:07 PM) Height/Length Estimated 157.000 cm (06/04/22 9:57 PM) Social History Social History Type Response Tobacco Current everyday tob acco user Tobacco Use:. Sex Hospital Discharge Instructions Patient Education 06/04/2022 22:25:09 Chronic Migraine Headache, Olfs-xy-Umik Chronic Migraine Headache A migraine headache is [...] these instructions at home: Medicines ??? Take ravv-vfi-sesprub and prescription medicines only as told by [...] Headache and Migraine Patients (CHAMP): headachemigraine.org ??? [place] Migraine Foundation: americanmigrainefoundation.org ??? National Headache Foundation: [...] provider. Document Revised: 04/22/2020 Document Reviewed: 04/22/2020 [employer] Patient Education ?? 2021 [employer] 06/04/2022 22:25:05 Migraine Headache, Xlez-sx-Gaqd Migraine Headache A migraine headache is a [...] these instructions at home: Medicines ??? Take xfsd-acs-ewzujzd and prescription medicines only as told by your doctor. ??? Ask your doctor if the medicine prescribed to you: ??? Requires you to avoid driving or using heavy machinery. ??? Can cause trouble pooping (constipation). You may need to take these steps to prevent or treat trouble pooping: ??? Drink enough fluid to keep your pee (urine) pale yellow. ??? Take obic-idv-qgdxybi or prescription medicines. ??? Eat foods that [...] provider. Document Revised: 06/28/2019 Document Reviewed: 04/18/2019 [employer] Patient Education ?? 2021 [employer]. Follow Up Care 06/04/2022 21:57:16 With:Hermes Ramirez MD Address: [address] [facility], [address] [place] [address]- When:3 to 5 days Comments:Continue home medications.?? Follow-up with specialist. ??Return to ED if symptoms worsen. Physician Emergency department Note * Jesus Khan MD: PERFORM Event Display: ED Note Physician Authored Date: [id number] MISHA JACKSON :1980 Age:41 years Sex:Female Visit Date:06/04/2022 Primary Care Physician: Hermes Ramirez MD Basic Information Time Seen: Jesus Khan MD / 06/04/2022 22:06 Chief Complaint migraine headache since this am with nausea and denies vomitting, ??also c/o light and sound sensitivity. ??miya states normal migraine headache for her History Of Present Illness: 41 years old??female??with history of chronic migraines.?? 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 Patient went to[facility]??in [place]??since her transplant specialist??patient states??blood tests were??okay.?? 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 Patient complaining of??usual??migraine headache??which started this morning. Review of Systems: Constitutional:?No??fevers,?No??chills,?No??sweats.?? Migraine headache Eye:?No??recent visual problems ENT:?No??ear pain,?No??nasal congestion,?No??sore throat Respiratory:?No??shortness of breath,?No??cough Cardiovascular:?No??Chest pain,?No??palpitations,?No??syncope Gastrointestinal:?Nonausea,?No??vomiting,?No??diarrhea Genitourinary:?No??hematuria Clemente/Lymph:?No??bruising tendency,?No??swollen lymph glands Endocrine:?No??excessive thirst,??No??excessive hunger Musculoskeletal:??No??back pain,??No??neck pain,??No??joint pain,??No??muscle pain,??No??decreased range of motion Integumentary:?No??rash,?No??pruritus,?No??abrasions Neurologic: Alert & oriented X 4 Psychiatric:?No??anxiety,?No??depression Physical Exam Vitals & Measurements T:??36.8?C ??(Oral)?? HR:??111??(Peripheral)?? RR:??18?? BP:??167/98?? SpO2:??98%?? HT:??157.000??cm?? WT:??77.00??kg??(Estimated)?? Pain Score:??8?? O2 Therapy:??Room [...] 25 mg IM. ??Benadryl 50 mg IM.?? Morphine??sulfate 2 mg IM. ??Follow- up with??PCP.?? Follow-up with??her specialist.?? Patient states she will have surgery this coming Monday to remove squamous cell carcinoma. ??States procedure will be done in [place]. Procedure No Qualifying Data Assessment/Plan 1.??Headache, chronic migraine without aura, intractable??G43.719 Orders: Benadryl, 50 mg = 1 mL, IM, Injection, Once, First Dose: 06/04/22 22:18:00 CDT, Stop Date: 06/04/2321:18:00 CDT, Physician Stop morphine, 2 mg = 0.5 mL, IM, Injection, Once, First Dose: 06/04/22 22:18:00 CDT, Stop Date: 06/04/22 22:18:00 CDT, Physician Stop Phenergan, 25 mg = 1 mL, IM, Injection, Once, First Dose: 06/04/22 22:18:00 CDT, Stop Date: 06/04/22 22:18:00 CDT, Physician Stop Patient Discharge Condition Good Discharge Disposition Discharge home Patient Education Chronic Migraine Headache, Rszp-vk-Hohq Migraine Headache, Hblp-oq-Mxgk Follow Up With When Contact Information Hermes Ramirez MD Within 3 to 5 days [address] [facility] [place] [address]- Additional Instructions: Continue home medications.?? Follow-up with specialist. ??Return to ED if symptoms worsen. Medication [...] by mouth) 2 times a day. ?? traMADol (traMADol 50 mg oral tablet)1 tab Oral (given by mouth) every 6 hours as needed as needed for pain. Refills: 0. ?? venlafaxine (venlafaxine 37.5 mg [...] Attestation Follow-up with PCP. Electronically Signed on 06/04/22 10:25 PM Jesus Khan MD Patient Care team information Care Team Personnel Name: Jessee Jones COSMETOLOGIST Position: Physician Member Role: Nurse Practitioner Address: Address: [address] [place] [address], [address] [place] [address]- Name: Latoya Marquez COSMETOLOGIST Position: Physician Member Role: Nurse Practitioner Address: Address: [address] [place] [address]- Name: Leonila Gonzalez COSMETOLOGIST Position: Physician Member Role: Nurse Practitioner Address: Address: [address] [place] [address]- Name: Beth Brandt COSMETOLOGIST Position: Physician Member Role: Nurse Practitioner Address: Address: [address] [place] [address] [place] [address] Name: Hermes Ramirez MD Position: Physician Member Role: Informed Provider Address: Address: [address] [place] [address], [address] [place] [address]- Name: Pillo Moe COSMETOLOGIST Position: Physician Member Role: Nurse Practitioner Address: Address: [address] [place] [address], [address] [facility] Name: Carson Hood RN Position: Nurse Member Role: ED Nurse Name: Jesus Khan MD Position: Physician Member Role: Admitting Physician Address: Address: [address] [place] [address] [place] [address]- [place] Care Team Related Persons Name: STACIA JONES Address: Home [address] [place], [place] [id number] Name: ROBYN JAMA Address: Home
--- OUTSIDE RECORDS SUMMARY | 2024-03-20 11:44 | XMS_ITS | Continuity of Care Document ---
Author Organization [facility] [address] [place] [address]- Care Team Providers Care Roll Repairer Name Role Phone Hermes Ramirez Primary Care Physician Encounter RANDY MARILUZ [id number] Date(s): 02/28/24 - 02/28/24 [facility] [address], [place] [address] Encounter Diagnosis Other chronic pain(Discharge Diagnosis) - 02/28/24 Right knee pain(Discharge Diagnosis) - 02/28/24 Right shoulder pain(Discharge Diagnosis) - 02/28/24 Obesity(Discharge Diagnosis) - 02/28/24 Chronic back pain(Discharge Diagnosis) - 02/28/24 Anxiety(Discharge Diagnosis) - 02/28/24 Discharge Disposition: Home or Self Care Attending [...] from: Title:Office Visit Note Author:Philip Ramirez MD Date:12/11/24 Depression Screen?? PHQ 2?? PHQ 9?? Little Interest - Pleasure in Activities: More than half the days Trouble Falling or Staying Asleep: Nearly every day Feeling Down, Depressed, Hopeless: Several days Feeling Tired or Little Energy: Nearly every day Initial Depression Screen Score: 3 Score Poor Appetite or Overeating: Not at all ?? Feeling Bad About Yourself: Not at all ?? Trouble Concentrating: Not at all ?? Moving or Speaking Slowly: Not at all ?? Thoughts Better Off or Hurting Self: Not at all ?? Detailed Depression Screen Score: 6 ?? Total Depression Screen Score: 9 Assessment/Plan 1.??Chronic back pain??M54.9 ??Patient sees??back doctor as well as pain clinic next month.?? She had MRIs in the summer. 2.??Anxiety??F41.9 ??Topamax and venlafaxine refilled until she is able to see??her new psychiatrist. 3.??Obesity??E66.9 ??Will start Mounjaro. ??Possible side effects discussed. ??Will start 2.5 mg. ??Return to clinic 1 month for??titration of dose. 4.??Right knee pain??M25.561 ??Will refer to orthopedics for this??she continues to struggle??several months after her injury.?? MRI reviewed. 5.??Right shoulder pain??M25.511 ??Will refer back to Dr. Riojas for injection into her shoulder. Other chronic pain??G89.29 Orders: Mounjaro 2.5 mg/0.5 mL subcutaneous solution, 2.5 mg =, Subcutaneous, every week, rotate injection sites, # 4 EA, 0 Refill(s), Pharmacy: [id number], 157.48, cm, 02/12/24 8:34:00 FABRIC CUTTER, Height, 91.63, kg, 02/28/24 15:55:00 FABRIC CUTTER, Weight Dosing Topamax 50 mg oral tablet, 50 mg = 1 tab, Oral, BID, # 60 tab, 2 Refill(s), Pharmacy: [id number], 157.48, cm, 02/12/24 8:34:00 FABRIC CUTTER, Height, 91.63, kg, 02/28/24 15:55:00 FABRIC CUTTER, Weight Dosing Topamax 25 mg oral tablet, 25 mg = 1 tab, Oral, BID, # 60 tab, 2 Refill(s), Pharmacy: [facility], 157.48, cm, 02/12/24 8:34:00 FABRIC CUTTER, Height, 91.63, kg, 02/28/24 15:55:00 FABRIC CUTTER, Weight Dosing venlafaxine 37.5 mg oral capsule, extended release, 1 cap, Oral, Daily, # 30 cap, 2 Refill(s), Pharmacy: [facility], 157.48, cm, 02/12/24 8:34:00 FABRIC CUTTER, Height, 91.63, kg, 02/28/24 15:55:00 FABRIC CUTTER, Weight Dosing Future Appointments Future Scheduled Tests [...] Daily, # 30 tab, 11 Refill(s), Pharmacy: [place], [place], 157.48, cm, 01/04/23 15:03:00 CDT, Height/Length [...] BID, # 120 cap, 2 Refill(s), [id number], 157.5, cm,02/06/24 16:22:00 FABRIC CUTTER, Height, 89.91, kg, 02/06/24 16:28:00 FABRIC CUTTER, Weight Dosing Start Date: 02/07/24 Status: Ordered LORazepam 0.5 mg oral tablet TAKE ONE TABLET BY MOUTH DAILY NEEDED FOR ANXIETY Start Date: 12/18/20 Status: Ordered metoprolol succinate 100 mg oral capsule, extended release 100 mg = 1 cap, Oral, BID, # 60 cap, 11 Refill(s), Pharmacy: [place], [place], 157.48, cm, 01/04/23 15:03:00 CDT, Height/Length Dosing, 81.65, kg, 01/04/23 15:03:00 CDT, Weight Dosing Start Date: 01/11/23 Status: Ordered Mounjaro 2.5 mg/0.5 mL subcutaneous solution 2.5 mg =, Subcutaneous, every week, rotate injection sites, # 4 EA, 0 Refill(s), Pharmacy: [id number], 157.48, cm, 02/12/24 8:34:00 FABRIC CUTTER, Height, 91.63, kg, 02/28/24 15:55:00 FABRIC CUTTER, Weight Dosing Start Date: 02/28/24 Status: Ordered nicotine 21 mg/24 hr transdermal film, extended release 1 patches, Transdermal, Daily, # 14 patches, 1 Refill(s), Pharmacy: [id number], 157.48, cm, 01/01/24 14:49:00 CDT, Height, 87.09, kg, 01/01/24 14:53:00 CDT, Weight Dosing Start Date: 01/01/24 Status: Ordered pantoprazole 40 mg oral delayed release tablet 1 tab, Oral, Daily, # 90 tab, 0 Refill(s), Pharmacy: [id number], 157.48, cm, 06/07/23 16:07:00 CDT, Height, 89.36, kg, 06/19/23 15:32:00 CDT, Weight Dosing Start Date: 06/20/23 Status: Ordered predniSONE 5 mg oral tablet 5 mg = 1 tab, Oral, Daily, with food or milk, # 30 tab, 0 Refill(s) Start Date: 02/06/24 Status: Ordered sucralfate 1 g oral tablet 1 tab, Oral, QID, # 360 tab, 0 Refill(s), Pharmacy: [id number], 157.48, cm, 08/29/23 14:22:00 CDT, Height, 88, kg, 08/29/23 14:27:00 CDT, Weight Dosing Start Date: 09/05/23 Status: Ordered Topamax 25 mg oral tablet 25 mg = 1 tab, Oral, BID, # 60 tab, 2 Refill(s), Pharmacy: [id number], 157.48, cm, 02/12/24 8:34:00 FABRIC CUTTER, Height, 91.63, kg, 02/28/24 15:55:00 FABRIC CUTTER, Weight Dosing Start Date: 02/28/24 Status: Ordered Topamax 50 mg oral tablet 50 mg = 1 tab, Oral, BID, # 60 tab, 2 Refill(s), Pharmacy: [id number], 157.48, cm, 02/12/24 8:34:00 FABRIC CUTTER, Height, 91.63, kg, 02/28/24 15:55:00 FABRIC CUTTER, Weight Dosing Start Date: 02/28/24 Status: Ordered venlafaxine 37.5 mg oral capsule, extended release 1 cap, Oral, Daily, # 30 cap, 2 Refill(s), Pharmacy: [id number], 157.48, cm, 02/12/24 8:34:00 FABRIC CUTTER, Height, 91.63, kg, 02/28/24 15:55:00 FABRIC CUTTER, Weight Dosing Start Date: 02/28/24 Status: Ordered Problem List Condition Confirmation Course Effective Dates Status H ealth Status Informant Acne Confirmed Active Anxiety Confirmed Active Breast lump on left side at 3 o'clock position Confirmed Active Chronic back pain Confirmed Active Chronic neck pain Confirmed Active [...] [35.8-37.3 Deg C] 37 De g C (02/28/24 3:49 PM) Peripheral Pulse Rate [60-100 bpm] 70 bp m (02/28/24 3:49 PM) Respiratory Rate [12-24 br/min] 18 br/mi n (02/28/24 3:49 PM) Blood Pressure [90-120/60-80 mmHg] 126/7 4mmHg *HI* (02/28/24 3:49 PM) Mean Arterial Pressure, Cuff [65-140 mmH g] 91 mmHg (02/28/24 3:49 PM) Weight 91.63 kg (02/28/24 3:49 PM) Weight Measured (lbs) 202.009 lb (02/28/24 3:49 PM) Weight Dosing 91.630 kg (02/28/24 3:49 PM) Social History Social History Type Response Tobacco Current everyday tob acco user Tobacco Use:. Sex Sex Representation Female (finding) Physician Outpatient Note * Hermes Ramirez MD: PERFORM Event Display: Office Clinic Note Physician Authored Date: [id number] MISHA JACKSON :1980 Age:43 years Sex:Female Visit Date:02/28/2024 Primary Care Physician: Hermes Ramirez MD Chief Complaint Pt states fell a few months ago at work still having back and shoulder pain. History of Present Illness MISHA JACKSON??is a??43 year old??old??Female??presenting today with??Chief Complaint: Pt states fell a few months ago at work still having back and shoulder pain. (02/28/24 15:49:00).?? She had??an appointment??with Dr. Riojas for her shoulder who offered her injection.?? She sees??a back doctor as well as pain clinic next month for her chronic??low back pain??as well as whole body pain.?? She continues to have knee pain. ??MRI showed no??significant injury??from the fall.?? She has between psychiatrists in [place] and needs her Topamax and??venlafaxine refilled. ??She would like to start??GLP-1 medication for??chronic obesity. Review of Systems Constitutional:?No??fevers Respiratory:?No??shortness of breath Cardiovascular:?No??Chest pain Gastrointestinal:?No??abd pain Physical Exam Vitals & Measurements T:??37?C ??(Oral)?? HR:??70??(Peripheral)?? RR:??18?? BP:??126/74?? SpO2:??98%?? WT:??91.63??kg?? General: Alert and oriented, well nourished,?No??acute distress Lungs: Clear to auscultation,?Non-labored?? respiration Heart:?Normal? rate,?Regular??rhythm,?No??murmur,?No??gallop Abdomen: Soft, non-tender, non-distended,?Normal? bowel sounds,?No??masses Peripheral Vascular: ??No??edema Depression Screen?? PHQ 2?? PHQ 9?? Little Interest - Pleasure in Activities: More than half the days Trouble Falling or Staying Asleep: Nearly every day Feeling Down, Depressed, Hopeless: Several days Feeling Tired or Little Energy: Nearly every day Initial Depression Screen Score: 3 Score Poor Appetite or Overeating: Not at all ?? Feeling Bad About Yourself: Not at all ?? Trouble Concentrating: Not at all ?? Moving or Speaking Slowly: Not at all ?? Thoughts Better Off or Hurting Self: Not at all ?? Detailed Depression Screen Score: 6 ?? Total Depression Screen Score: 9 Assessment/Plan 1.??Chronic back pain??M54.9 ??Patient sees??back doctor as well as pain clinic next month.?? She had MRIs in the summer. 2.??Anxiety??F41.9 ??Topamax and venlafaxine refilled until she is able to see??her new psychiatrist. 3.??Obesity??E66.9 ??Will start Mounjaro. ??Possible side effects discussed. ??Will start 2.5 mg. ??Return to clinic 1month for??titration of dose. 4.??Right knee pain??M25.561 ??Will refer to orthopedics for this??she continues to struggle??several months after her injury.??MRI reviewed. 5.??Right shoulder pain??M25.511 ??Will refer back to Dr. Riojas for injection into her shoulder. Other chronic pain??G89.29 Orders: Mounjaro 2.5 mg/0.5 mL subcutaneous solution, 2.5 mg =, Subcutaneous, every week, rotate injection sites, # 4 EA, 0 Refill(s), Pharmacy: [id number][facility], 157.48, cm, 02/12/24 8:34:00 FABRIC CUTTER, Height, 91.63, kg, 02/28/24 15:55:00 FABRIC CUTTER, Weight Dosing Topamax 50 mg oral tablet, 50 mg = 1 tab, Oral, BID, # 60 tab, 2 Refill(s), Pharmacy: [id number], 157.48, cm, 02/12/24 8:34:00 FABRIC CUTTER, Height, 91.63, kg, 02/28/24 15:55:00 FABRIC CUTTER, Weight Dosing Topamax 25 mg oral tablet, 25 mg = 1 tab, Oral, BID, # 60 tab, 2 Refill(s), Pharmacy: [id number], 157.48, cm, 02/12/24 8:34:00 FABRIC CUTTER, Height, 91.63, kg, 02/28/24 15:55:00 FABRIC CUTTER, Weight Dosing venlafaxine 37.5 mg oral capsule, extended release, 1 cap, Oral, Daily, # 30 cap, 2 Refill(s), Pharmacy: [id number], 157.48, cm, 02/12/24 8:34:00 FABRIC CUTTER, Height, 91.63, kg, 02/28/24 15:55:00 FABRIC CUTTER, Weight Dosing Problem List/Past Medical History Ongoing Acne Anxiety Breast lump on left side at 3 o'clock position Cervicalgia Chronic back pain Chronic neck pain Chronic pain Chronic pain Chronic paronychia of finger Congenital biliary atresia Constipation Degenerative disc disease, cervical Edema Gout Heart murmur History of fall History of [...] region Headache, chronic migraine without aura Headache, chronic migraine without aura, intractable Headache, migraine, intractable Health education/counseling Hip sprain [...] mg= 1 tab, Oral, Daily, 11 refills azaTHIOprine 50 mg oral tablet Envarsus XR 1 mg oral tablet, extended release Envarsus XR 4 mg oral tablet, extended release gabapentin 300 mg oral capsule, 600 mg= 2 cap, Oral, BID, 2 refills LORazepam 0.5 mg oral tablet metoprolol succinate 100 mg oral capsule, extended release, 100 mg= 1 cap, Oral, BID, 11 refills Mounjaro 2.5 mg/0.5 mL subcutaneous solution, 2.5 mg, Subcutaneous, every week nicotine 21 mg/24 hr transdermal film, extended release, 1 patches, Transdermal, Daily, 1 refills pantoprazole 40 mg oral delayed release tablet, 1 tab, Oral, Daily predniSONE 5 mg oral tablet, 5 mg= 1 tab, Oral, Daily sucralfate 1 g oral tablet, 1 tab, Oral, QID Topamax 25 mg oral tablet, 25 mg= 1 tab, Oral, BID, 2 refills Topamax 50 mg oral tablet, 50 mg= 1 tab, Oral, BID, 2 refills venlafaxine 37.5 mg oral capsule, extended release, 1 cap, Oral, Daily, 2 refills Allergies NSAIDs Toradol??(Kidney failure as a complication [...] (Tdap) adult/adol 05/25/2012 Recorded Electronically Signed on 02/28/2024 16:18 FABRIC CUTTER Hermes Ramirez MD Patient Care team information Care Team Personnel Name: Jessee Jones TOUCH UP PAINTER Position: Physician Member Role: Nurse Practitioner Address: [address] [place] [address], [facility] [address] Name: Latoya Marquez TOUCH UP PAINTER Position: Physician Member Role: Nurse Practitioner Address: [address] [place] [address] Name: Leonila Gonzalez TOUCH UP PAINTER Position: Physician Member Role: Nurse Practitioner Address: [address] [place] [address] Name: Beth Brandt TOUCH UP PAINTER Position: Physician Member Role: Nurse Practitioner Address: [address] [place] [address] Name: Hermes Ramirez MD Position: Physician Member Role: Informed Provider Address: [address] [place] [address], [address] Name: Pillo Moe TOUCH UP PAINTER Position: Physician Member Role: Nurse Practitioner Address: [address] [place] [address], [address] Care Team Related Persons Name: STACIA JONES Name: ROBYN JAMA Name: NAIF CHOI Name: MADY CHEN Name: MADY CHEN Insurance Providers Guarantor name: MISHA JACKSON Health Plan Information #: 1 Payer: [employer] [id number] Member Number: [id number] Policy Number: NA Health Plan Information #: 2 Payer: [employer] [id number] Member Number: [id number] Policy Number: NA
--- OUTSIDE RECORDS SUMMARY | 2024-03-20 11:44 | XMS_ITS | Continuity of Care Document ---
Author Organization [facility] Address [address] [place] [address] Care Team Providers Care Template Worker Name Role Phone Vijaynixon Hermes Perez Primary Care Physician [phone] Encounter ONOFRE MCGRAW [id number] Date(s): 04/07/21 - 04/07/[address] [id number] Encounter Diagnosis Migraine(Discharge Diagnosis) - 04/07/21 Discharge Disposition: Home or Self Care Attending Physician: Manjinder Bradley MD Admitting Physician: Manjinder Bradley MD Allergies, Adverse Reactions, Alerts Substance Reaction Severity Status gentamicin Moderate Active erythromycin Medication interaction Activ e aspirin Medication interaction Activ e Toradol Kidney failure as a complication of care Active NSAIDs Severe Active Assessment and Plan Future Appointments Functional Status 04/07/21 Family Member Travel History No recent t ravel Recent Travel History No recent travel Other exposure to Infectious Disease Com munity exposure to COVID-19 within the last 14 days 1 1Result Comment: Pt. is covid positive on day 6. Never been vaccinated. Immunizations Given and Recorded Vaccine Date Status [...] 0 Refill(s) Start Date: 04/07/21 Status: Ordered butalbital/acetaminophen/caffeine 50 mg-325 mg-40 mg [...] BID, # 180 tab, 3 Refill(s), Pharmacy: [place], [place], 157, cm, 10/22/20 21:26:00 CDT, Height/Length Dosing, 74, kg, 10/22/20 21:26:00 CDT, Weight Dosing Start Date: 12/18/20 Status: Ordered Pepcid 20 mg oral tablet 20 mg = 1 tab, Oral, BID, 0 Refill(s) Start Date: 09/29/20 Status: Ordered Phenergan 25 mg = 1 mL, IM, Once, 0 Refill(s) Start Date: 04/07/21 Status: Ordered Multivitamins with Vitamin B Complex, [...] Oral [35.8-37.3 Deg C] 37.1 Deg C (04/07/21 2:19 AM) Peripheral Pulse Rate [60-100 bpm] 99 bp m (04/07/21 2:19 AM) Respiratory Rate [12-24 br/min] 16 br/mi n (04/07/21 2:19 AM) Blood Pressure [90-140/60-90 mmHg] 147/9 5mmHg *HI* (04/07/21 2:19 AM) Weight 77.00 kg (04/07/21 2:19 AM) Weight Dosing 77.00 kg (04/07/21 2:27 AM) Height 157.000 cm (04/07/21 2:19 AM) Height/Length Dosing 157.000 cm (04/07/21 2:27 AM) Body Mass Index Estimated 31 (04/07/21 2:19 AM) Social History Social History Type Response Smoking Status 5-9 cigarettes (betw een 1/4 to 1/2 pack)/day in last 30 days entered on: 04/01/21 Sex Hospital Discharge Instructions Patient Education 04/07/2021 02:46:43 Migraine Headache Migraine Headache A migraine headache [...] these instructions at home: Medicines ??? Take adeb-vgy-pbkoisb and prescription medicines only as told by your health care provider. ??? Ask your health care provider if the medicine prescribed to you: ??? Requires you to avoid driving or using heavy machinery. ??? Can cause constipation. You may need to take these actions to prevent or treat constipation: ??? Drink enough fluid to keep your urine pale yellow. ??? Take twvv-tcw-aopzczs or prescription medicines. ??? Eat foods that [...] ?? 2020 [employer] Follow Up Care 04/07/2021 02:19:22 With:migraine Address: When:1 month
--- OUTSIDE RECORDS SUMMARY | 2024-03-20 11:44 | XMS_ITS | Continuity of Care Document ---
Author Organization [facility] Address [address] [place] [address] Care Team Providers Care Proposal Director Name Role Phone Hermes Ramirez Primary Care Physician Encounter ONOFRE MCGRAW [id number] Date(s): 06/27/23 - 06/27/[address] [address] [place] Discharge Disposition: Home or Self Care Attending Physician: Hernán Nixon MD Admitting Physician: Hernán Nixon MD Referring Physician: Hernán Nixon MD Allergies, Adverse Reactions, [...] Tests Pending * Cyclosporine, Blood LC-MS/MS LC 06/27/23 * CMV Quant DNA PCR (Plasma) LC 06/27/23 Future Scheduled Tests Laboratory* Urinalysis with Microscopic [...] Daily, # 30 tab, 11 Refill(s), Pharmacy: [place], [place], 157.48, cm, 01/04/23 15:03:00 CDT, Height/Length [...] BID, # 60 cap, 11 Refill(s), Pharmacy: [place], [place], 157.48, cm, 01/04/23 15:03:00 CDT, Height/Length Dosing, 81.65, kg, 01/04/23 15:03:00 CDT, Weight Dosing Start Date: 01/11/23 Status: Ordered pantoprazole 40 mg oral delayed release tablet 1 tab, Oral, Daily, # 90 tab, 0 Refill(s), [id number], 157.48, cm, 06/07/23 16:07:00 CDT, Height, 89.36, [...] QID, # 360 tab, 0 Refill(s), Pharmacy: [id number][facility], 157.48, cm, 06/07/23 16:07:00 CDT, Height, 89.36, [...] Results Laboratory List Name Date Automated Diff 06/27/23 CBC w/ Diff 06/27/23 Comprehensive Metabolic Panel 06/27/23 GGT 06/27/23 Magnesium Level 06/27/23 Most recent to oldest [Reference Range]: 1 WBC [4.0-11.5 K/mcL] 7.5 K/mcL (06/27/23 6:41 AM) RBC [4.20-5.40 x10^6/mcL] 4.10 x10^6/mcL *LOW* (06/27/23 6:41 AM) Neutro Auto 64.6 % *NA* (06/27/23 6:41 AM) Lymph Auto 23.5 % *NA* (06/27/23 6:41 AM) Divide Auto 7.1 % *NA* (06/27/23 6:41 AM) Basophil Auto 0.4 % *NA* (06/27/23 6:41 AM) BUN [7-18 mg/dL] 37 mg/dL *HI* (06/27/23 6:41 AM) Glucose Level [70-110 mg/dL] 96 mg/dL (06/27/23 6:41 AM) Potassium Level [3.5-5.1 mmol/L] 3.9 mmo l/L (06/27/23 6:41 AM) Baso Absolute [0.0-0.1 x10^3/mcL] 0.0 x1 0^3/mcL (06/27/23 6:41 AM) MCV [78.0-100.0 fL] 101.7 fL *HI* (06/27/23 6:41 AM) AST [15-37 unit/L] 31 unit/L (06/27/23 6:41 AM) ALT [12-78 unit/L] 85 unit/L *HI* (06/27/23 6:41 AM) MCHC [29.0-37.5 g/dL] 33.6 g/dL (06/27/23 6:41 AM) Sodium Level [136-145 mmol/L] 146 mmol/L *HI* (06/27/23 6:41 AM) Lymph Absolute [0.8-5.8 x10^3/mcL] 1.8 x 10^3/mcL (06/27/23 6:41 AM) Hct [36.0-48.0 %] 41.7 % (06/27/23 6:41 AM) Calcium Level [8.5-10.1 mg/dL] 8.8 mg/dL (06/27/23 6:41 AM) Divide Absolute [0.1-1.5 x10^3/mcL] 0.5 x1 0^3/mcL (06/27/23 6:41 AM) Albumin Level [3.4-5.0 g/dL] 2.8 g/dL *LOW* (06/27/23 6:41 AM) Protein Total [6.4-8.2 g/dL] 6.9 g/dL (06/27/23 6:41 AM) MCH [27.0-34.0 pg] 34.1 pg *HI* (06/27/23 6:41 AM) Magnesium Level [1.8-2.4 mg/dL] 1.6 mg/d L *LOW* (06/27/23 6:41 AM) Neutro Absolute [1.5-8.1 x10^3/mcL] 4.8 x10^3/mcL (06/27/23 6:41 AM) Bilirubin Total [0.0-1.0 mg/dL] 0.7 mg/d L (06/27/23 6:41 AM) Hgb [12.0-16.0 g/dL] 14.0 g/dL (06/27/23 6:41 AM) Alk Phos [46-130 unit/L] 377 unit/L *HI* (06/27/23 6:41 AM) MPV [6.0-10.0 fL] 10.8 fL *HI* (06/27/23 6:41 AM) Platelets [150-450 K/mcL] 167 K/mcL (06/27/23 6:41 AM) CO2 [21-32 mmol/L] 20 mmol/L *LOW* (06/27/23 6:41 AM) Eos Absolute [0.0-0.5 x10^3/mcL] 0.3 x10 ^3/mcL (06/27/23 6:41 AM) GGT [5-55 unit/L] 367 unit/L *HI* (06/27/23 6:41 AM) eGFR Non-AA 37 *NA* (06/27/23 6:41 AM) eGFR AA 45 *NA* (06/27/23 6:41 AM) Chloride Level [97-107 mmol/L] 112 mmol/ L *HI* (06/27/23 6:41 AM) RDW-CV [11.5-15.0 %] 12.9 % (06/27/23 6:41 AM) Imm Gran Absolute [0.0-0.1 x10^3/mcL] 0. 0 x10^3/mcL (06/27/23 6:41 AM) Imm Gran Auto 0.4 % *NA* (06/27/23 6:41 AM) NRBC Auto 0.0 % *NA* (06/27/23 6:41 AM) NRBC Absolute [0.0-0.0 x10^3/mcL] 0.0 x1 0^3/mcL (06/27/23 6:41 AM) Slide Review Not Indicated (06/27/23 6:41 AM) Creatinine Level [0.60-1.30 mg/dL] 1.62 mg/dL 1 *HI* (06/27/23 6:41 AM) Anion Gap [5-15 mmol/L] 18 mmol/L *HI* (06/27/23 6:41 AM) Eos, Auto 4.0 % *NA* (06/27/23 6:41 AM) 1Interpretive Data: Association of GFR and [...] information Care Team Personnel Name: Jessee Jones SECRETARY OF STATE Position: Physician Member Role: Nurse Practitioner Address: Address: [address] [place] [address], [address] [place] [address] Name: Latoya Marquez SECRETARY OF STATE Position: Physician Member Role: Nurse Practitioner Address: Address: [address] [place] [address]- Name: Leonila Gonzalez SECRETARY OF STATE Position: Physician Member Role: Nurse Practitioner Address: Address: [address] [place] [address]- Name: Beth Brandt SECRETARY OF STATE Position: Physician Member Role: Nurse Practitioner Address: Address: [address] [place] [id number] [place] Name: Hermes Ramirez MD Position: Physician Member Role: Informed Provider Address: Address: [address] [place] [address], [address] [place] [address]- Name: Pillo Moe SECRETARY OF STATE Position: Physician Member Role: Nurse Practitioner Address: Address: [address] [place] [address], [address] [facility] Care Team Related Persons Name: STACIA JONES Address: Home [address] [id number] Name: MADY CHEN Name: MADY CHEN
--- OUTSIDE RECORDS SUMMARY | 2024-03-20 11:44 | XMS_ITS | Continuity of Care Document ---
Author Organization [facility] Address [address] [place] [address] Care Team Providers Care Pediatric Urologist Name Role Phone Hermes Ramirez Primary Care Physician [phone] Encounter ONOFRE MCGRAW [id number] Date(s): 07/20/23 - 07/20/[address] [address] [place] Encounter Diagnosis Chronic back pain(Discharge Diagnosis) - 07/20/23 Other chronic pain(Discharge Diagnosis) - 07/20/23 Discharge Disposition: Home or Self Care Attending [...] from: Title:ED Provider Note Author:Car Roach MD Date:07/20/23 Assessment/Plan 1.??Chronic back pain??M54.9 ??Patient given a dose of morphine 2 mg IM Advised to follow-up with PCP with the results of the MRI??of the thoracic and lumbar spine that was done today. ??Results are all pending Other chronic pain??G89.29 Orders: morphine, 2 mg = 1 mL, Intramuscular, Injection, Once, First Dose: 07/20/23 16:00:00 CDT, Stop Date: 07/20/23 16:00:00 CDT, Physician Stop, Routine Patient Discharge Condition Stable Discharge Disposition Discharged to home to follow-up with PCP Patient Education Chronic Back Pain, Bbuc-lc-Yfeh Follow Up With When Contact Information Hermes Ramirez MD Within 1 week [address] [place] [address]- ?? Additional Instructions: Follow-up with PCP??with the results of the MRI of the??lumbar and thoracic spine as well as??further management of chronic back pain Future Appointments Future Scheduled Tests Radiology* MG [...] Daily, # 30 tab, 11 Refill(s), Pharmacy: [place], [place], 157.48, cm, 01/04/23 15:03:00 CDT, Height/Length [...] 0 Refill(s), 07/26/23 6:12:00 PM CDT, Pharmacy: [facility]#[id number], 157.48, cm, 07/19/23 17:49:00 CDT, Height, 81.65, [...] BID, # 60 cap, 11 Refill(s), Pharmacy: [place], [place], 157.48, cm, 01/04/23 15:03:00 CDT, Height/Length Dosing, 81.65, kg, 01/04/23 15:03:00 CDT, Weight Dosing Start Date: 01/11/23 Status: Ordered pantoprazole 40 mg oral delayed release tablet 1 tab, Oral, Daily, # 90 tab, 0 Refill(s), [facility]: [id number], 157.48, cm, 06/07/23 16:07:00 CDT, Height, 89.36, [...] QID, # 360 tab, 0 Refill(s), [id number], 157.48, cm, 06/07/23 16:07:00 CDT, Height, 89.36, [...] [35.8-37.3 Deg C] 37 De g C (07/20/23 3:14 PM) Peripheral Pulse Rate [60-100 bpm] 72 bp m (07/20/23 5:06 PM) 76 bpm (07/20/23 3:14 PM) Respiratory Rate [12-24 br/min] 18 br/mi n (07/20/23 3:14 PM) Blood Pressure [90-140/60-90 mmHg] 148/8 6mmHg *HI* (07/20/23 5:06 PM) 146/89mmHg *HI* (07/20/23 3:14 PM) Mean Arterial Pressure, Cuff [65-140 mmH g] 108 mmHg (07/20/23 3:14 PM) Weight 81.65 kg (07/20/23 3:14 PM) Weight Dosing 81.650 kg (07/20/23 3:14 PM) Height 157.48 cm (07/20/23 3:14 PM) Body Mass Index 32.92 kg/m2 (07/20/23 3:14 PM) Social History Social History Type Response Tobacco Current everyday tob acco user Tobacco Use:. 1 Sex 1Pt states that she smokes half a pack a day. Hospital Discharge Instructions Patient Education 07/20/2023 15:17:34 Chronic Back Pain, Vegm-wp-Ecap Chronic Back Pain Chronic back pain is [...] them backward. ??? Do not sit or watchstander one place for too long. ??? Take [...] body. ??? Avoid twisting. Medicines ??? Take ctev-nbl-kzhvsqw and prescription medicines only as told by [...] your pee (urine) pale yellow. ??? Take cocm-gka-tgnxqjb or prescription medicines. ??? Eat foods that [...] Reviewed: 10/24/2022 Elsevier Patient Education ?? 2022 [employer] Follow Up Care 07/20/2023 15:06:20 With:Hermes Ramirez MD Address: [address] [place] [address] [address] [place] [id number]- When:1 week Comments:Follow-up with PCP??with the results of the MRI of the??lumbar and thoracic spine as well as??further management of chronic back pain Physician Emergency department Note * Felicia Roach MD: PERFORM Event Display: ED Note Physician Authored Date: [id number] MISHA JACKSON :1980 Age:42 years Sex:Female Visit Date:07/20/2023 Primary Care Physician: Hermes Ramirez MD Basic Information ??No qualifying data available.?? Chief Complaint Chronic back pain History Of Present Illness: 42-year-old female??who frequents the ER for pain complaints specifically with chronic migraine??and chronic back pain. 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 She was just recently seen in theED for a migraine and back pain??and??she has had multiple x-rays of the thoracic cervical??and lumbar spine which showed early DDD??with a mild dextroscoliosis.?? Saw PCP last week because of the back pain??and today she underwent MRI??of the lumbar and thoracic spine and the results are pending.?? She is here because she wants a pain shot for her back pain??unrelieved with her home medications.??No other complaints Review of Systems: Constitutional:?No??fevers,?No??chills,?No??sweats Eye:?No??recent [...] No Qualifying Data Assessment/Plan 1.??Chronic back pain??M54.9 ??Patient given a dose of morphine 2 mg IM Advised to follow-up with PCP with the results of the MRI??of the thoracic and lumbar spine that was done today. ??Results are all pending Other chronic pain??G89.29 Orders: morphine, 2 mg = 1 mL, Intramuscular, Injection, Once, First Dose: 07/20/23 16:00:00 CDT, Stop Date: 07/20/23 16:00:00 CDT, Physician Stop, Routine Patient Discharge Condition Stable Discharge Disposition Discharged to home to follow-up with PCP Patient Education Chronic Back Pain, Kkyt-fl-Yzjf Follow Up With When Contact Information Hermes Ramirez MD Within 1 week [address] [facility], [address] [place] [address]- Additional Instructions: Follow-up with PCP??with the results of the MRI of the??lumbar and thoracic spine as well as??further management of chronic back pain Medication Reconciliation Unchanged amLODIPine (amLODIPine 5 mg [...] removal from [facility]???liver transplant Allergies NSAIDs Toradol??(Kidney failure as a complication of care) aspirin??(Medication interaction) azithromycin??(Unknown) codeine??(Unknown, Itching) gentamicin morphine??(redness, Itching) erythromycin??(Medication interaction) Social History Alcohol Never Electronic Cigarette/Vaping Electronic Cigarette Use: Never. Substance Use Never Tobacco Current everyday tobacco user Tobacco Use:.- Comments: Pt states that she smokes half a pack a day. Family History Cancer: Mother. Attending Attestation Stable Electronically Signed on 07/20/23 03:18 PM Felicia Roach MD Patient Care team information Care Team Personnel Name: Jessee Jones NP Position: Physician Member Role: Nurse Practitioner Address: Address: [address] [place] [address], [address] [place] [address] Name: Anklam, Latoya HOME CARE RN Position: Physician Member Role: Nurse Practitioner Address: Address: [address] [place] [address]- Name: Leonila Gonzalez HOME CARE RN Position: Physician Member Role: Nurse Practitioner Address: Address: [address] [place] [address]- Name: Beth Brandt HOME CARE RN Position: Physician Member Role: Nurse Practitioner Address: Address: [address] [place] [address] Name: Hermes Ramirez MD Position: Physician Member Role: Informed Provider Address: Address: [address] [facility], [address] [place] [address]- Name: Pillo Moe HOME CARE RN Position: Physician Member Role: Nurse Practitioner Address: Address: [address] [place] [address], [address] [facility] Care Team Related Persons Name: STACIA JONES Address: Home [address] [phone] Name: MADY CHEN Name: MAYD CHEN
--- OUTSIDE RECORDS SUMMARY | 2024-03-20 11:44 | XMS_ITS | Continuity of Care Document ---
Author Organization [facility] Address [address] [place] [address] Care Team Providers Care Mason Foreman/Superintendant Name Role Phone Hermes Ramirez Primary Care Physician Encounter [place] Date(s): 07/24/21 - 07/24/[address] [email or web address] Encounter Diagnosis Headache, chronic migraine without aura(Discharge Diagnosis) - 07/24/21 Contact lens stuck(Discharge Diagnosis) - 07/24/21 Discharge Disposition: Home or Self Care Attending [...] BID, # 180 tab, 3 Refill(s), Pharmacy: [place], [place], 157, cm, 10/22/20 21:26:00 CDT, Height/Length [...] Oral [35.8-37.3 Deg C] 37.0 Deg C (07/24/21 4:52 PM) Peripheral Pulse Rate [60-100 bpm] 103 b pm *HI* (07/24/21 4:52 PM) Respiratory Rate [12-24 br/min] 18 br/mi n (07/24/21 4:52 PM) Blood Pressure [90-140/60-90 mmHg] 138/8 8mmHg (07/24/21 4:52 PM) Weight Dosing 77.00 kg (07/24/21 5:04 PM) Weight Estimated 77.00 kg (07/24/21 4:52 PM) Height/Length Dosing 157.000 cm (07/24/21 5:04 PM) Body Mass Index Estimated 31 (07/24/21 4:52 PM) Height/Length Estimated 157.000 cm (07/24/21 4:52 PM) Social History Social History Type Response Smoking Status 5-9 cigarettes (betw een 1/4 to 1/2 pack)/day in last 30 days entered on: 05/12/21 Sex Hospital Discharge Instructions Patient Education 07/24/2021 17:22:26 Migraine Headache, Fkrs-ej-Dgmy Migraine Headache A migraine headache is a [...] these instructions at home: Medicines ??? Take idgv-lmd-ovcutsl and prescription medicines only as told by your doctor. ??? Ask your doctor if the medicine prescribed to you: ??? Requires you to avoid driving or using heavy machinery. ??? Can cause trouble pooping (constipation). You may need to take these steps to prevent or treat trouble pooping: ??? Drink enough fluid to keep your pee (urine) pale yellow. ??? Take sfbt-lbg-hcipyha or prescription medicines. ??? Eat foods that [...] provider. Document Revised: 06/28/2019 Document Reviewed: 04/18/2019 [email or web address] Patient Education ?? 2020 [employer] 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
--- OUTSIDE RECORDS SUMMARY | 2024-03-20 11:44 | XMS_ITS | Continuity of Care Document ---
Author Organization [facility] Address [address] [place] [address] Care Team Providers Care Outfitter Cabin Name Role Phone Sophiejenna Hermes Perez Primary Care Physician Encounter RANDY MCGRAW [id number] Date(s): 08/26/23 - 08/26/[address] [address] [place] Discharge Disposition: Left Without Being Seen Attending Physician: Percy Salazar MD Allergies, Adverse Reactions, [...] Daily, # 30 tab, 11 Refill(s), Pharmacy: [facility] [place], [place], 157.48, cm, 01/04/23 15:03:00 CDT, Height/Length Dosing, 81.65, kg, 01/04/23 15:03:00 CDT, Weight Dosing Start Date: 01/11/23 Status: Ordered aspirin 81 mg oral delayed release tablet 81 mg = 1 tab, Oral, Daily, # 30 tab, 0 Refill(s) Start Date: 04/05/21 Status: Ordered gabapentin 300 mg oral capsule 600 mg = 2 cap, Oral, BID, # 120 cap, 2 Refill(s), Pharmacy: [id number], 157.48, cm, 07/23/23 17:59:00 CDT, Height, [...] BID, # 60 cap, 11 Refill(s), Pharmacy: [place], [place], 157.48, cm, 01/04/23 15:03:00 CDT, Height/Length Dosing, 81.65, kg, 01/04/23 15:03:00 CDT, Weight Dosing Start Date: 01/11/23 Status: Ordered pantoprazole 40 mg oral delayed release tablet 1 tab, Oral, Daily, # 90 tab, 0 Refill(s), Pharmacy: [id number], 157.48, cm, 06/07/23 16:07:00 CDT, Height, 89.36, [...] QID, # 360 tab, 0 Refill(s), [facility]: [id number], 157.48, cm, 06/07/23 16:07:00 CDT, Height, 89.36, [...] [35.8-37.3 Deg C] 37 De g C (08/26/23 7:51 AM) Peripheral Pulse Rate [60-100 bpm] 72 bp m (08/26/23 7:51 AM) Respiratory Rate [12-24 br/min] 18 br/mi n (08/26/23 7:51 AM) Blood Pressure [90-140/60-90 mmHg] 153/8 8mmHg *HI* (08/26/23 7:51 AM) Mean Arterial Pressure, Cuff [65-140 mmH g] 110 mmHg (08/26/23 7:51 AM) Weight 81.65 kg (08/26/23 7:51 AM) Weight Dosing 81.650 kg (08/26/23 7:51 AM) Height 157.48 cm (08/26/23 7:51 AM) Body Mass Index 32.92 kg/m2 (08/26/23 7:51 AM) Social History Social History Type Response Tobacco Current everyday tob acco user Tobacco Use:. 1 Sex 1Pt states that she smokes half a pack a day. Patient Care team information Care Team Personnel Name: Jessee Jones CALIBRATION LABORATORY TECHNICIAN Position: Physician Member Role: Nurse Practitioner Address: Address: [address] [place] [address], [address] Name: Latoya Marquez CALIBRATION LABORATORY TECHNICIAN Position: Physician Member Role: Nurse Practitioner Address: Address: [address] [place] [address] Name: Leonila Gonzalez CALIBRATION LABORATORY TECHNICIAN Position: Physician Member Role: Nurse Practitioner Address: Address: [address] [place] [address] Name: Beth Brandt CALIBRATION LABORATORY TECHNICIAN Position: Physician Member Role: Nurse Practitioner Address: Address: [address] [place] [address] Name: Hermes Ramirez MD Position: Physician Member Role: Informed Provider Address: Address: [address] [place] [address], [address] Name: Pillo Moe CALIBRATION LABORATORY TECHNICIAN Position: Physician Member Role: Nurse Practitioner Address: Address: [address] [place] [address], [facility] Care Team Related Persons Name: STACIA JONES Address: Home [address] [phone] Name: ROBYN JAMA Name: MADY CHEN Name: MADY CHEN
--- OUTSIDE RECORDS SUMMARY | 2024-03-20 11:44 | XMS_ITS | Continuity of Care Document ---
Author Organization [facility] [place] Address [address] [place] [address]- Care Team Providers Care Ditching Machine Operator Name Role Phone Hermes Ramirez Primary Care Physician [phone] Encounter ONOFRE MCGRAW [id number] Date(s): 06/04/21 - 06/04/21 [facility] [address] [place] [address]- Encounter Diagnosis Lumbar back pain(Discharge Diagnosis) - 06/04/21 Discharge Disposition: Home or Self Care Attending Physician: Jessee Jones DRILL PRESS OPERATOR FOR METAL Allergies, Adverse Reactions, Alerts Substance Reaction Severity Status gentamicin Moderate Active erythromycin Medication interaction Activ e aspirin Medication interaction Activ e Toradol Kidney failure as a complication of care Active NSAIDs Severe Active Assessment and Plan Future Appointments Functional Status 06/04/21 Other exposure to Infectious Disease Non e [...] BID, # 180 tab, 3 Refill(s), Pharmacy: [place], [place], [address], cm, 10/22/20 21:26:00 CDT, Height/Length [...] Oral [35.8-37.3 Deg C] 36.9 Deg C (06/04/21 10:02 AM) Peripheral Pulse Rate [60-100 bpm] 87 bp m (06/04/21 10:02 AM) Respiratory Rate [12-24 br/min] 18 br/mi n (06/04/21 10:02 AM) Blood Pressure [90-140/60-90 mmHg] 122/7 0mmHg (06/04/21 10:02 AM) Weight 81.19 kg (06/04/21 10:02 AM) Weight Measured (lbs) 178.993 lb (06/04/21 10:02 AM) Social History Social History Type Response Smoking Status 5-9 cigarettes (betw een 1/4 to 1/2 pack)/day in last 30 days entered on: 05/12/21 Sex Care Team Personnel Name: Hermes Ramirez MD Address: [address] [place] [address] [place] [address]
--- OUTSIDE RECORDS SUMMARY | 2024-03-20 11:44 | XMS_ITS | Continuity of Care Document ---
Author Organization [facility] Address [address] [place] [address] Care Team Providers Care Powder Blender And Pourer Name Role Phone Ashley Hermes H Primary Care Physician [phone] Encounter ONOFRE MCGRAW [id number] Date(s): 07/22/23 - 07/22/[address] [address]- [place] Encounter Diagnosis Migraine headache(Discharge Diagnosis) - 07/22/23 Chronic low back pain(Discharge Diagnosis) - 07/22/23 Other chronic pain(Discharge Diagnosis) - 07/22/23 Discharge Disposition: Left Against Medical Advice Attending Physician: Maryam Cortés MD Admitting Physician: [...] from: Title:ED Provider Note Author:Maryam Cortés MD Date:07/22/23 Assessment/Plan 1.??Migraine headache??G43.909 2.??Chronic low back pain??M54.50 Other chronic pain??G89.29 Orders: Vistaril, 50 mg = 1 mL, Intramuscular, Injection, Once, First Dose: 07/22/23 22:00:00 CDT, Stop Date: 07/22/23 22:00:00 CDT, Physician Stop, Routine Discharge Patient, 07/22/23 23:23:00 CDT Patient Discharge Condition Improved. Patient signed out AMA. Patient Education Migraine Headache, Fdog-za-Eppr Chronic Back Pain, Cspv-ka-Bbrd Follow Up With When Contact Information Hermes Ramirez MD Within 5 to 7 days [address] [facility], [address] [place] [address]- ?? Additional Instructions: Follow up with specialist Within 3 to 5 days Additional Instructions: Pain Management. Extracted from: Title:Clinical Document Author:Flaquita Angela RN Date:07/21/23 Diagnosis: 1. Migraine heada artis Comment: Diagnosis: 2. Chronic low back pain Comment: Diagnosis: HARRIS - Headache Comment: Diagnosis: Other chronic pain Comment: Diagnosis: Pain in back Comment: dr cortés spoke with pt then pt called K Irasema RN went to room to answer light pt wanted to sign out she stated I don't like my intelligence questioned Future Appointments Future Scheduled Tests Radiology* MG [...] Daily, # 30 tab, 11 Refill(s), Pharmacy: [place], [place], 157.48, cm, 01/04/23 15:03:00 CDT, Height/Length [...] 0 Refill(s), 07/26/23 6:12:00 PM CDT, Pharmacy: [id number], 157.48, cm, 07/19/23 17:49:00 CDT, Height, 81.65, [...] BID, # 60 cap, 11 Refill(s), Pharmacy: [place], [place], 157.48, cm, 01/04/23 15:03:00 CDT, Height/Length Dosing, 81.65, kg, 01/04/23 15:03:00 CDT, Weight Dosing Start Date: 01/11/23 Status: Ordered pantoprazole 40 mg oral delayed release tablet 1 tab, Oral, Daily, # 90 tab, 0 Refill(s), Pharmacy: [id number], 157.48, cm, 06/07/23 16:07:00 CDT, Height, 89.36, [...] QID, # 360 tab, 0 Refill(s), Pharmacy: [id number], 157.48, cm, 06/07/23 16:07:00 CDT, Height, 89.36, [...] Range]: 1 Temperature Oral [35.8-37.3 Deg C] 36.4 Deg C (07/22/23 9:31 PM) Peripheral Pulse Rate [60-100 bpm] 108 b pm *HI* (07/22/23 9:31 PM) Respiratory Rate [12-24 br/min] 16 br/mi n (07/22/23 9:31 PM) Blood Pressure [90-140/60-90 mmHg] 148/8 9mmHg *HI* (07/22/23 9:31 PM) Mean Arterial Pressure, Cuff [65-140 mmH g] 109 mmHg (07/22/23 9:31 PM) Social History Social History Type Response Tobacco Current everyday tob acco user Tobacco Use:. 1 Sex 1Pt states that she smokes half a pack a day. Hospital Discharge Instructions Patient Education 07/22/2023 23:22:31 Migraine Headache, Swio-rr-Sspu Migraine Headache A migraine headache is a [...] these instructions at home: Medicines ??? Take wfdk-gag-djmypeq and prescription medicines only as told by your doctor. ??? Ask your doctor if the medicine prescribed to you: ??? Requires you to avoid driving or using heavy machinery. ??? Can cause trouble pooping (constipation). You may need to take these steps to prevent or treat trouble pooping: ??? Drink enough fluid to keep your pee (urine) pale yellow. ??? Take fepd-sir-usrgnuq or prescription medicines. ??? Eat foods that [...] provider. Document Revised: 08/18/2022 Document Reviewed: 04/18/2019 [employer] Patient Education ?? 2022 [employer]. 07/22/2023 23:22:07 Chronic Back Pain, Mrdu-ym-Hpxf Chronic Back Pain Chronic back pain is [...] them backward. ??? Do not sit or airborne mission systems superintendent one place for too long. ??? Take [...] body. ??? Avoid twisting. Medicines ??? Take tknv-afu-vzylzyk and prescription medicines only as told by [...] your pee (urine) pale yellow. ??? Take ssch-psr-ekcrmow or prescription medicines. ??? Eat foods that [...] Reviewed: 10/24/2022 Elsevier Patient Education ?? 2022 [employer]. Follow Up Care 07/22/2023 21:23:31 With:Hermes Ramirez MD Address: [address] [facility], [address] [place] [address]- When:5 to 7 days With:Follow up with specialist Address: When:3 to 5 days Comments:Pain Management. 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 Headaache tonight is R sided, dull, rated 8/10. Low back pain is rated 7/1 0. She feels nauseated, vomited x1. She was just seen in the ED 2 days ago for same complaints of amigraine and back pain??and??she has had multiple x-rays of the thoracic cervical??and lumbar spinewhich showed early DDD??with a mild dextroscoliosis.?Patient states she is scheduled to see PainManagement. Review of Systems: Constitutional:?No??fevers,?No??chills,?No??sweats Eye:?No??recent visual problems ENT:?No??ear pain,?No??nasal congestion,?No??sore throat Respiratory:?No??shortness of breath,?No??cough Cardiovascular:?No??Chest pain,?No??palpitations,?No??syncope Gastrointestinal:?Positive fornausea,?Positive for??vomiting,?No??diarrhea Genitourinary:?No??hematuria Clemente/Lymph:?No??bruising tendency,?No??swollen lymph glands Endocrine:?No??excessive thirst,??No??excessive hunger Musculoskeletal:??No??back pain,??No??neck pain,??No??joint pain,??No??muscle pain,??No??decreased range of motion Integumentary:?No??rash,?No??pruritus,?No??abrasions Neurologic: Alert & oriented X 4 Psychiatric:?No??anxiety,?No??depression Physical Exam Vitals & Measurements T:??36.4?C ??(Oral)?? HR:??108??(Peripheral)?? RR:??16?? BP:??148/89?? SpO2:??96%?? O2 Therapy:??Room air?? General: Alert and oriented, [...] mood and affect Medical Decision Makin - Nausea resolved but still requesting pain medicine for back pain.?? I explained that Vistaril is pain medication as well. Patient demanded to sign out AMA. Procedure No Qualifying Data Assessment/Plan 1.??Migraine headache??G43.909 2.??Chronic low back pain??M54.50 Other chronic pain??G89.29 Orders: Vistaril, 50 mg = 1 mL, Intramuscular, Injection, Once, First Dose: 07/22/23 22:00:00 CDT, Stop Date: 07/22/23 22:00:00 CDT, Physician Stop, Routine Discharge Patient, 07/22/23 23:23:00 CDT Patient Discharge Condition Improved. Patient signed out AMA. Patient Education Migraine Headache, Ztgf-fy-Xfln Chronic Back Pain, Qqzd-cg-Lyxj Follow Up With When Contact Information Hermes Ramirez MD Within 5 to [address] [place] [address], [address] [place] [address]- Additional Instructions: Follow up with specialist Within 3 to 5 days Additional Instructions: Pain Management. Medication Reconciliation Unchanged amLODIPine (amLODIPine 5 mg [...] Liver transplantation (05/08/2020)???Mammogram (2020)??? delivery???cyst removal from [facility]???[place]???liver transplant Allergies NSAIDs Toradol??(Kidney failure as a complication of care) aspirin??(Medication interaction) azithromycin??(Unknown) codeine??(Unknown, Itching) gentamicin morphine??(redness, Itching) erythromycin??(Medication interaction) Social History Alcohol Never Electronic Cigarette/Vaping Electronic Cigarette Use: Never. Substance Use Never Tobacco Current everyday tobacco user Tobacco Use:.- Comments: Pt states that she smokes half a pack a day. Family History Cancer: Mother. Electronically Signed on 07/22/23 11:25 PM Maryam Cortés MD Discharge summary * Flaquita Angela RN: PERFORM Event Display: Discharge Note Authored Date: [id number] Diagnosis: 1. Migraine headache Comment: Diagnosis: 2. Chronic low back pain Comment: Diagnosis: HARRIS - Headache Comment: Diagnosis: Other chronic pain Comment: Diagnosis: Pain in back Comment: dr cortés spoke with pt then pt called K Irasema RN went to room to answer light pt wanted to sign out she stated I don't like my intelligence questioned Electronically Signed on 07/23/23 02:17 AM Flaquita Angela RN Patient Care team information Care Team Personnel Name: Jessee Jones ADJUSTER ELECTRICAL CONTACTS Position: Physician Member Role: Nurse Practitioner Address: Address: [address] [place] [address], [address] Name: Latoya Marquez ADJUSTER ELECTRICAL CONTACTS Position: Physician Member Role: Nurse Practitioner Address: Address: [address] [place] [address] Name: Leonila Gonzalez ADJUSTER ELECTRICAL CONTACTS Position: Physician Member Role: Nurse Practitioner Address: Address: [address] [place] [address] Name: Beth Brandt ADJUSTER ELECTRICAL CONTACTS Position: Physician Member Role: Nurse Practitioner Address: Address: [address] [place] [address] Name: Hermes Ramirez MD Position: Physician Member Role: Informed Provider Address: Address: [address] [place] [address], [address] [place] [address]- Name: Pillo Moe ADJUSTER ELECTRICAL CONTACTS Position: Physician Member Role: Nurse Practitioner Address: Address: [address] [place] [address], [address] [facility] Care Team Related Persons Name: STACIA JONES Address: [address] [id number] Name: AMDY CHEN Name: MADY CHEN
--- OUTSIDE RECORDS SUMMARY | 2024-03-20 11:44 | XMS_ITS | Continuity of Care Document ---
Author Organization [facility] Address [address] [place] [address] Care Team Providers Care Assembler Erector Name Role Phone Hermes Ramirez Primary Care Physician [phone] Encounter ONOFREEver MCGRAW [id number] Date(s): 01/23/23 - 01/23/[address] [address] [place] Encounter Diagnosis Acute headache(Discharge Diagnosis) - 01/23/23 Discharge Disposition: Home or Self Care Attending [...] Complete 2+ Views Right 07/04/22 Functional Status 01/23/23 Family Member Travel History No recent t [...] Daily, # 30 tab, 11 Refill(s), Pharmacy: [place], [place], 157.48, cm, 01/04/23 15:03:00 CDT, Height/Length [...] BID, # 60 cap, 11 Refill(s), Pharmacy: [place], [place], 157.48, cm, 01/04/23 15:03:00 CDT, Height/Length Dosing, 81.65, kg, 01/04/23 15:03:00 CDT, Weight Dosing Start Date: 01/11/23 Status: Ordered morphine 2 mg = 1 mL, Slow IV Push, Injection, Once, First Dose: 01/23/23 12:00:00 PM CLOTHING ROOM SUPERVISOR, Stop Date: 01/23/2311:21:02 AM CLOTHING ROOM SUPERVISOR, Physician Stop, Routine Start Date: 01/23/23 Stop Date: 01/23/23 Status: Completed mycophenolate mofetil 250 mg oral [...] 2 3 Peripheral Pulse Rate [60-100 bpm] 90 bpm (01/23/23 12:13 PM) 89 bpm (01/23/23 10:02 AM) Respiratory Rate [12-24 br/min] 16 br/min (01/23/23 12:13 PM) 16 br/min (01/23/23 11:19 AM) 16 br/min (01/23/23 10:02 AM) Blood Pressure [90-140/60-90 mmHg] 157/94mmHg *HI* (01/23/23 10:02 AM) Mean Arterial Pressure, Cuff [65-140 mmHg] 115 mmHg (01/23/23 10:02 AM) Weight Dosing 81.70 kg (01/23/23 10:17 AM) Weight Estimated 81.70 kg (01/23/23 10:02 AM) Height 157.500 cm (01/23/23 10:17 AM) Height/Length Estimated 157.500 cm (01/23/23 10:02 AM) Social History Social History Type Response Tobacco Current everyday tob acco user Tobacco Use:. Sex Hospital Discharge Instructions Patient Education 01/23/2023 12:01:27 Migraine Headache Migraine Headache A migraine headache [...] these instructions at home: Medicines ??? Take eqar-uwd-rsftkwt and prescription medicines only as told by your health care provider. ??? Ask your health care provider if the medicine prescribed to you: ??? Requires you to avoid driving or using heavy machinery. ??? Can cause constipation. You may need to take these actions to prevent or treat constipation: ??? Drink enough fluid to keep your urine pale yellow. ??? Take fkzy-ayn-uimtfzc or prescription medicines. ??? Eat foods that [...] provider. Document Revised: 06/28/2019 Document Reviewed: 04/18/2019 [employer] Patient Education ?? 2022 [employer]. Follow Up Care 01/23/2023 10:02:30 With:Follow up with primary care provider Address:Unknown When:2 to 4 days Physician Emergency department Note * Daron Acuna MD: MODIFY, PERFORM Event Display: ED Note Physician Authored Date: [id number] MISHA JACKSON :1980 Age:42 years Sex:Female Visit Date:01/23/2023 Primary Care Physician: Hermes Ramirez MD Basic Information ??No qualifying data available.?? Chief Complaint Pt to ER w c/o a headache since yesterday (pt seen here yesterday for the same headache). Today pt exhibits w NV et worsening head pain. Pt is getting back on her topamax she reports. No noteable PH tx. History Of Present Illness: Patient reports 1 day history of migraine that is right sided, radiates to the back with associatednausea and vomiting but no fevers, no chills, no diarrhea, no abdominal pain, no pain or burning with urination. Review of Systems: Constitutional:?No??fevers,?No??chills,?No??sweats Eye:?No??recent visual problems ENT:?No??ear pain,?No??nasal congestion,?No??sore throat Respiratory:?No??shortness of breath,?No??cough Cardiovascular:?No??Chest pain,?No??palpitations,?No??syncope Gastrointestinal:?Positive fornausea,?Positive for??vomiting,?No??diarrhea Genitourinary:?No??hematuria Clemente/Lymph:?No??bruising tendency,?No??swollen lymph glands Endocrine:?No??excessive thirst,??No??excessive hunger Musculoskeletal:??No??back pain,??No??neck pain,??No??joint pain,??No??muscle pain,??No??decreased range of motion Integumentary:?No??rash,?No??pruritus,?No??abrasions Neurologic: Alert & oriented, headache Psychiatric:?No??anxiety,?No??depression . Physical Exam General: Alert and oriented, well nourished,?No??acute distress Eye: PERRL, EOMI,?Normal?conjunctiva HENT: Normocephalic, Normal? hearing, moist oral mucosa,?No??scleral icterus,?No??sinus tenderness Neck: Supple, non-tender,?No??carotid bruits,?No??JVD,?No??lymphadenopathy Lungs:??Clear to auscultation?? Respiration:??Non-Labored Heart:?Normal? rate,?Regular??rhythm,?No??murmur,?No??gallop,?No??edema Abdomen: Soft, non-tender, non-distended,?Normal? bowel sounds,?No??masses Musculoskeletal:?Normal? range of motion and strength,?No??tenderness,?No??swelling Skin: Skin is warm, dry and pink,?No??rashes,?No??lesions Neurologic: Awake, alert and oriented X4, CN II-XII intact Psychiatric: Cooperative, appropriate mood and affect ?? Procedure No Qualifying Data Assessment/Plan Migraine: Patient reports improved pain with morphine 3mg (total)??along with Phenergan 25 mg??and benadryl 25 mg. Discussed f/u with pcp or neurologist in 2- 3 days and that we have a policy that restricts the use of dilauded. Pt agrees with the plan. Patient Discharge Condition Good Medication Reconciliation Unchanged amLODIPine (amLODIPine 5 mg [...] (2020)??? delivery???[facility]???liver transplant Medication Administration Given Sodium Chloride 0.9%, 1000 mL, IV Benadryl, 25 mg, IM morphine, 2 mg, Slow IV Push morphine, 1 mg, Slow IV Push Phenergan, 25 mg, IM Allergies NSAIDs Toradol??(Kidney failure as a complication of care) aspirin??(Medication interaction) azithromycin??(Unknown) codeine??(Unknown, Itching) gentamicin erythromycin??(Medication interaction) Social History Alcohol Never Electronic Cigarette/Vaping Electronic Cigarette Use: Never. Substance Use Never Tobacco Current everyday tobacco user Tobacco Use:.- Comments: Pt states that she smokes half a pack a day. Family History Cancer: Mother. Electronically Signed on 01/23/23 12:03 PM Daron Acuna MD Patient Care team information Care Team Personnel Name: Jessee Jones SERVICE DESK SPECIALIST Position: Physician Member Role: Nurse Practitioner Address: Address: [address] [place] [address], [address] [place] [address] Name: Latoya Marquez SERVICE DESK SPECIALIST Position: Physician Member Role: Nurse Practitioner Address: Address: [address] [place] [address] Name: Leonila Gonzalez SERVICE DESK SPECIALIST Position: Physician Member Role: Nurse Practitioner Address: Address: [address] [place] [address] Name: Beth Brandt SERVICE DESK SPECIALIST Position: Physician Member Role: Nurse Practitioner Address: Address: [address] [place] [address] Name: Hermes Ramirez MD Position: Physician Member Role: Primary Care Physician Address: Address: [address] [place] [address], [address] Name: Anamika Gore MD Position: Physician - Women's Health Member Role: Informed Provider Name: Pillo Moe SERVICE DESK SPECIALIST Position: Physician Member Role: Nurse Practitioner Address: Address: [address] [place] [address], [address] [facility] Name: Paris Morrissey RN Position: Nurse Member Role: ED Nurse Name: Daron Acuna MD Position: Physician Member Role: Admitting Physician Care Team Related Persons Name: STACIA JONES Address: [address] [id number] Name: ROBYN JAMA
--- OUTSIDE RECORDS SUMMARY | 2024-03-20 11:44 | XMS_ITS | Continuity of Care Document ---
Author Organization [facility] Address [address] [place] [address] Care Team Providers Care Auto Bumper Straightener Name Role Phone Hermes Ramirez Primary Care Physician Encounter ONOFRE MCGRAW [id number] Date(s): 02/16/22 - 02/16/[address] [id number] Encounter Diagnosis Intractable migraine(Discharge Diagnosis) - 02/16/22 Acute viral syndrome(Discharge Diagnosis) - 02/16/22 Transaminitis(Discharge Diagnosis) - 02/16/22 Discharge Disposition: Home or Self Care Attending [...] Assessment and Plan Diagnostic Tests Pending * Acute Hepatitis LC 02/16/22 Future Scheduled Tests Laboratory* Comprehensive Metabolic Panel 02/18/22 Radiology* US Abdomen Limited 02/17/22 Functional Status 02/16/22 Other exposure to Infectious Disease COV ID-19 [...] wheezing, # 6.7 g, 0 Refill(s), Pharmacy: [place], [place], [address], cm, 09/13/21 23:53:00 CDT, Height/Length [...] needed, # 12 cap, 0 Refill(s), Pharmacy: [place], [place], [address], cm, 11/04/21 20:02:00 CDT, Height/Length [...] BID, # 180 tab, 3 Refill(s), Pharmacy: [facility], 157.48, cm, 02/07/22 18:45:00CST, Height/Length Dosing, 72.57, kg, 02/07/22 18:45:00 BOOK CANVASSER, Weight Dosing Start Date: 02/13/22 Status: Ordered [...] nausea/vomiting, # 20 tab, 0 Refill(s), Pharmacy: [place], [place], [address], cm, 09/29/21 23:03:00 CDT, Height/Length [...] Complete d Results Laboratory List Name Date Bilirubin Direct 02/16/22 Influenza A/B 02/16/22 SARS-CoV-2 (COVID-19) ([facility]) 02/16/22 Urinalysis with Culture if Indicated .Urine Volume 02/16/22 Urinalysis Microscopic 02/16/22 Lactic Acid 02/16/22 CBC w/ Diff 02/16/22 Comprehensive Metabolic Panel (CMP) 01/20 Magnesium Level 02/16/22 Test Serum Qual 02/16/22 Automated Diff 02/16/22 Most recent to oldest [Reference Range]: 1 WBC [4.0-11.5 K/mcL] 11.5 K/mcL (02/16/22 9:17 PM) RBC [4.20-5.40 x10^6/mcL] 4.62 x10^6/mcL (02/16/22 9:17 PM) Neutro Auto 85.7 % *NA* (02/16/22 9:17 PM) Lymph Auto 6.3 % *NA* (02/16/22 9:17 PM) Mccreary Auto 6.9 % *NA* (02/16/22 9:17 PM) Basophil Auto 0.2 % *NA* (02/16/22 9:17 PM) BUN [7-18 mg/dL] 18 mg/dL (02/16/22 9:17 PM) UA Color Luz Maria *ABN* (02/16/22 9:26 PM) UA WBC [0-5] 0-5 (02/16/22 9:26 PM) Glucose Level [70-110 mg/dL] 102 mg/dL (02/16/22 9:17 PM) Potassium Level [3.5-5.1 mmol/L] 3.2 mmo l/L *LOW* (02/16/22:17 PM) Baso Absolute [0.0-0.1 x10^3/mcL] 0.0 x1 0^3/mcL (02/16/22: PM) MCV [78.0-100.0 fL] 94.2 fL (02/16/22: PM) UA Urobilinogen [Normal mg/dL] 4 mg/dL *ABN* (02/16/22: PM) UA Bili [Negative mg/dL] 1 mg/dL *ABN* (02/16/22: PM) UA Ketones [Negative mg/dL] Negative mg/ dL (02/16/22: PM) AST [15-37 unit/L] 373 unit/L *HI* (02/16/22: PM) ALT [12-78 unit/L] 447 unit/L *HI* (02/16/22: PM) MCHC [29.0-37.5 g/dL] 34.9 g/dL (02/16/22: PM) Sodium Level [136-145 mmol/L] 137 mmol/L (02/16/22: PM) UA RBC [0-3] None (02/16/22 PM) UA Leuk Est [Negative Guille/mcL] Negative Guille/mcL (02/16/22: PM) Lymph Absolute [0.8-5.8 x10^3/mcL] 0.7 x 10^3/mcL *LOW* (02/16/22: PM) UA Nitrite [Negative] Negative (02/16/22: PM) UA Glucose [Normal mg/dL] Normal mg/dL (02/16/22: PM) Hct [36.0-48.0 %] 43.5 % (02/16/22 PM) UA Bacteria [None Seen] Few *ABN* (02/16/22: PM) Calcium Level [8.5-10.1 mg/dL] 8.5 mg/dL (02/16/22 9: PM) Mccreary Absolute [0.1-1.5 x10^3/mcL] 0.8 x1 0^3/mcL (02/16/22 9:17 PM) Albumin Level [3.4-5.0 g/dL] 3.1 g/dL *LOW* (02/16/22:17 PM) Protein Total [6.4-8.2 g/dL] 6.7 g/dL (02/16/22 9:17 PM) UA Protein [Negative mg/dL] Trace mg/dL *ABN* (02/16/22: PM) MCH [27.0-34.0 pg] 32.9 pg (02/16/22: PM) Magnesium Level [1.8-2.4 mg/dL] 1.5 mg/d L *LOW* (02/16/22: PM) Neutro Absolute [1.5-8.1 x10^3/mcL] 9.9 x10^3/mcL *HI* (02/16/22 9: PM) Bilirubin Total [0.0-1.0 mg/dL] 4.0 mg/d L *HI* (02/16/22:17 PM) Hgb [12.0-16.0 g/dL] 15.2 g/dL (02/16/22 9:17 PM) Alk Phos [46-130 unit/L] 432 unit/L *HI* (02/16/22:17 PM) UA Blood [Negative Rocael/mcL] Negative Rocael /mcL (02/16/22 9:26 PM) MPV [6.0-10.0 fL] 10.5 fL *HI* (02/16/22:17 PM) UA Spec Grav 1.015 (02/16/22:26 PM) Bilirubin Direct [<=0.3 mg/dL] 3.1 mg/dL *HI* (02/16/22 9:59 PM) Platelets [150-450 K/mcL] 117 K/mcL *LOW* (02/16/22:17 PM) CO2 [21-32 mmol/L] 22 mmol/L (02/16/22 9:17 PM) Eos Absolute [0.0-0.5 x10^3/mcL] 0.0 x10 ^3/mcL (02/16/22 9:17 PM) Lactic Acid Lvl [0.4-2.0 mmol/L] 0.7 mmo l/L (02/16/22 9:17 PM) UA Squam Epithelial [None Seen] Moderate *ABN* (02/16/22 9:26 PM) UA pH [5.0-9.0] 5.0 (02/16/22 9:26 PM) eGFR Non-AA 45 *NA* (02/16/22 9:17 PM) eGFR AA 54 *NA* (02/16/22 9:17 PM) UA Appear [Clear] Clear (02/16/22 9:26 PM) Chloride Level [97-107 mmol/L] 107 mmol/ L (02/16/22 9:17 PM) RDW-CV [11.5-15.0 %] 12.1 % (02/16/22 9:17 PM) hCG Qual Serum [Negative] Negative (02/16/22 9:17 PM) Imm Gran Absolute [0.0-0.1 x10^3/mcL] 0. 1 x10^3/mcL (02/16/22 9:17 PM) Imm Gran Auto 0.6 % *NA* (02/16/22 9:17 PM) NRBC Auto 0.0 % *NA* (02/16/22 9:17 PM) NRBC Absolute [0.0-0.0 x10^3/mcL] 0.0 x1 0^3/mcL (02/16/22 9:17 PM) Influenza A [Negative] Negative (02/16/22 9:36 PM) Influenza B [Negative] Negative (02/16/22 9:36 PM) UA Culture Ind?. Not Indicated (02/16/22 9:26 PM) Urine Srce Clean Catch (02/16/22 9:26 PM) UA Amorph Many (02/16/22 9:26 PM) Urine Volume 12 mL (02/16/22 9:26 PM) Creatinine Level [0.60-1.30 mg/dL] 1.39 mg/dL *HI* (02/16/22 9:17 PM) Employed in healthcare? No *NA* (02/16/22 9:36 PM) Hospitalized due to COVID-19? No *NA* (02/16/22 9:36 PM) In ICU? No *NA* (02/16/22 9:36 PM) Group care resident? No *NA* (02/16/22 9:36 PM) status? Unknown *NA* (02/16/22 9:36 PM) Lot Exp COVID-19 [facility] 04-MAY-2023 *NA* (02/16/22 9:36 PM) Lot # COVID-19 [facility] [id number] *NA* (02/16/22 9:36 PM) Int Control COVID-19 [facility] Valid (02/16/22 9:36 PM) SARS-CoV-2 (COVID-19) ([facility]) [Negative ] Negative (02/16/22 9:36 PM) Anion Gap [5-15 mmol/L] 11 mmol/L (02/16/22 9:17 PM) Eos, Auto 0.3 % *NA* (02/16/22 9:17 PM) Radiology Reports * Exam Date Time Procedure Performing Provider Status 02/16/22 10:[address] Abdomen and Pelvi s w/o Contrast Liz Henry RT(R); Auth (Verified) Notes: (CT Abdomen and Pelvis w/o Contrast) Reason For Exam: Transaminitis with hyperbilirubinemia/post liver transplant CT Abdomen and Pelvis w/o Contrast EXAM DESCRIPTION: CT Abdomen and Pelvis w/o Contrast REASON FOR STUDY: headache, body aches, hx kidney and liver transplant, transaminitis w/ hyperbilirubinemia DURATION: 1 day Comparisons: 01/05/22 PREVIOUS SURGERY: kidney and liver transplant, c-sec, hernia, cyst removed from breast CANCER HISTORY: TYPE: CANCER HISTORY: TREATMENT: ow long? 20+ years SMOKING HISTORY: 20+ years TECHNIQUE: CT scan of the abdomen and pelvis performed without intravenous and without oral contrast using helical scanning technique. Reconstructed coronal and sagittal MPR images reviewed. All images stored on PACS. Automated exposure control was used as a dose optimization technique for this examination. COMPARISON: 01/05/2022 FINDINGS: The sensitivity for detection of visceral lesions is diminished without the use of intravenous contrast. LOWER CHEST: No significant pulmonary abnormalities. No effusion. LIVER: Normal size. No identified cystic or solid masses. Postoperative changes of liver transplant. There are prominent varices in the left upper quadrant with splenorenal shunt. GALLBLADDER: Surgically absent. BILE DUCTS: No intrahepatic or extrahepatic ductal dilatation. SPLEEN: Enlarged at 13.4 cm. PANCREAS: No identified cystic or solid masses. No significant calcifications. No adjacent inflammation or peripancreatic fluid collections. Pancreatic duct not dilated. ADRENALS: Normal. KIDNEYS/URINARY TRACT: No identified significant cystic or solid masses. No stones. No hydronephrosis or hydroureter. Bilateral [place] kidneys are atrophic. Normal appearing transplant kidney in the right lower quadrant. Urinary bladder is unremarkable. GI: No dilated bowel loops. No obvious wall thickening. Normal appendix. No significant diverticular disease. PERITONEUM: No ascites or free air. RETROPERITONEUM: No mass or adenopathy. REPRODUCTIVE: No significant abnormality. VASCULATURE: No abdominal aortic aneurysm. MUSCULOSKELETAL: No significant abnormality. OTHER: No other abnormality. IMPRESSION: 1. Postoperative changes of liver transplant. There are prominent varices in the left upper quadrant as well as a splenorenal shunt. 2. Surgical absence of the gallbladder. 3. Mild splenomegaly. 4. Atrophy of the bilateral [place] kidneys. Normal appearing transplant kidney in the right lower quadrant. REFERENCE: Unless otherwise specified, no follow-up imaging is recommended for incidental renal and adrenal lesions per consensus recommendations based on imaging criteria. Further lab evaluation could be pursued based on clinical findings. Management of the Incidental Renal Mass on CT: A White Paper of the ACR Incidental Findings Committee. J Am Gilberto Radiol. 2018 Apr;15(2):264-273. Management of Incidental Adrenal Masses: A White Paper of the ACR Incidental Findings Committee. J Am Gilberto Radiol. 2017 Oct;14(8):4496-7128. THIS IS AN ELECTRONICALLY VERIFIED FINAL REPORT 02/16/2022 11:17 PM - Electronically signed by Jonas Ahn M.D. KT: MARIA ELENA Report ID: [id number] Reading Location: [place] [address] Final Dictated by: Jonas Ahn MD Dictated DT/TM: 02/16/2022 11:19 pm Signed by: Jonas Ahn MD Signed (Electronic Signature): 02/16/2022 11:19 pm * Exam Date Time Procedure Performing Provider Status 02/16/22 9:34 PM XR Chest 2 Views Liz Henry RT (R); Auth (Verified) Notes: (XR Chest 2 Views) Reason For Exam: cough XR Chest 2 Views EXAM DESCRIPTION: XR Chest 2 Views REASON FOR STUDY: Cough, migraine headaches, fever, body aches. History of heart murmur, kidney and liver transplant DURATION: 3 days Comparisons: 12/28/21 PREVIOUS SURGERY: kidney and liver transplant, c-sec, hernia, cyst from breast. SMOKING HISTORY: 20+ years 1/4 ppd TECHNIQUE: Frontal and lateral radiographic views of the chest acquired. COMPARISON: 12/28/2021 FINDINGS: LUNGS/PLEURA: No focal consolidation or pneumothorax. No pleural effusion. HEART/MEDIASTINUM: Heart size is normal. Normal mediastinal and hilar contours. HARDWARE/LINES/TUBES: None. BONES: No acute findings. OTHER: No other significant finding. IMPRESSION: No acute cardiopulmonary abnormality. THIS IS AN ELECTRONICALLY VERIFIED FINAL REPORT 02/16/2022 9:45 PM - Electronically signed by Radu Dixon M.D. ML: ML Report ID: [id number] Reading Location: [place] [address] Final Dictated by: Radu Dixon MD Dictated DT/TM: 02/16/2022 9:48 pm Signed by: Radu Dixon MD Signed (Electronic Signature): 02/16/2022 9:48 pm Vital Signs Most recent to oldest [Reference Range]: 1 Temperature Oral [35.8-37.3 Deg C] 37.1 Deg C (02/16/22 8:50 PM) Peripheral Pulse Rate [60-100 bpm] 119 b pm *HI* (02/16/22 8:50 PM) Respiratory Rate [12-24 br/min] 20 br/mi n (02/16/22 8:50 PM) Blood Pressure [90-140/60-90 mmHg] 115/8 2mmHg (02/16/22 8:50 PM) Weight Dosing 73.00 kg (02/16/22 9:01 PM) Weight Estimated 73.00 kg (02/16/22 8:50 PM) Height/Length Dosing 157.000 cm (02/16/22 9:01 PM) Height/Length Estimated 157.000 cm (02/16/22 8:50 PM) Social History Social History Type Response Tobacco Current everyday tob acco user Tobacco Use:. Sex Hospital Discharge Instructions Patient Education 02/16/2022 23:30:24 Liver Transplant, Adult, Care After Liver Transplant, Adult, Care After This sheet gives you information about how to care for yourself after your procedure. Your health care provider may also give you more specific instructions. If you have problems or questions, contact your health care provider. What can I expect after the procedure? After the procedure, it is common to have: ??? Soreness in your abdomen. ??? Tiredness (fatigue). ??? A weak disease-fighting system (immune system). ??? Changes in mood. Follow these instructions at home: Work closely with your team of health care providers (transplant team). Learn as much as you can about your condition so that you have an active role in your treatment and recovery. Watching for rejection Rejection means that the immune system is attacking the new liver. This is most common in the firstfew months after surgery. If you have changes in certain body measurements or have certain signs orsymptoms, you may be having a rejection response. Take the following measurements every day. Ask your health care provider how to measure your: ??? Temperature. ??? Blood pressure. ??? Weight. Watch for any of the following signs or symptoms of possible rejection: ??? Fever. ??? Loss of appetite. ??? Nausea or vomiting. ??? Pain in your abdomen. ??? Sudden weight gain. ??? Yellowing of the skin or the whites of the eyes (jaundice). ??? Dark-colored urine. ??? Oscar-colored stools. Medicines ??? Take aaxa-acv-dusynir and prescription medicines only as told by your health care provider. These include pain medicines. ??? If you were prescribed an antibiotic medicine, take it as told by your health care provider. Donot stop taking the antibiotic even if you start to feel better. ??? Take anti-rejection medicines as told by your health care provider. ??? You may have to take several types of medicines. ??? Do not miss any dose. Keep track of when to take your medicines. Ask your transplant care team how to keep track of your medicines. ??? Report any side effects as told by your health care provider. Ask what side effects to watch for. ??? Develop a routine to make sure you take all your medicines correctly and at the right time eachday. Eating and drinking ??? Work with a nutrition assistant (dietitian) to make sure that you eat enough calories and healthy foods. ??? Avoid foods that are high in salt (sodium), sugar, or saturated fat. ??? Ask your health care provider if you need to take supplements or vitamins. ??? Do not eat raw, rare, or undercooked foods. These foods raise your risk of infection. ??? Drink enough fluid to keep your urine pale yellow. Incision care ??? Follow instructions from your health care provider about how to take care of your incision. Make sure you: ??? Wash your hands with soap and water for at least 20 seconds before and after you change your bandage (dressing). If soap and water are not available, use hand washroom attendant. ??? Change your dressing as told by your health care provider. ??? Leave stitches (sutures), skin glue, or adhesive strips in place. These skin closures may need to stay in place for 2 weeks or longer. If adhesive strip edges start to loosen and curl up, you maytrim the loose edges. Do not remove adhesive strips completely unless your health care provider tells you to do that. ??? Check your incision area every day for signs of infection. Check for: ??? Redness, swelling, or pain. ??? Fluid or blood. ??? Warmth. ??? Pus or a bad smell. Activity ??? Rest as told by your health care provider. ??? Avoid sitting for a long time without moving. Get up to take short walks every 1???2 hours. This is important to improve blood flow and breathing. Ask for help if you feel weak or unsteady. ??? Ask your health care provider what activities are safe for you and what activities you should avoid. ??? Until your health care provider approves: ??? Do not travel far from your hospital, clinic, or transplant center. ??? Do not drive or use machinery. ??? Do not lift anything that is heavier than 10 lb (4.5 kg), or the limit that your health care provider tells you. Lifestyle ??? Do not use any products that contain nicotine or tobacco, such as cigarettes, e-cigarettes, andchewing tobacco. These can delay healing after surgery. If you need help quitting, ask your health care provider. ??? Do not drink alcohol. Preventing infection ??? Some of your medicines may raise your risk of infection. Make sure that you: ??? Wash your hands often with soap and water for at least 20 seconds. If soap and water are not available, use hand washroom attendant. Have close friends and family members also wash their hands often. ??? Do not share cups, bottles, utensils, or other personal items, such as toothbrushes. ??? Avoid close contact with people who are sick. ??? Stay away from pets such as reptiles, birds, and rodents. ??? Avoid contact with soil, stool (feces), and mold. ??? Ask your health care provider when it is safe for you to get vaccines, including flu shots. Askwhich vaccines are safe for you. General instructions ??? Do not take baths, swim, or use a hot tub until your health care provider approves. Ask your health care provider if you may take showers. You may only be allowed to take sponge baths. ??? Protect yourself from the sun by: ??? Wearing sunscreen with an SPF of 30 or higher. ??? Avoiding outdoor activities when the sun is strongest (between 10 a.m. and 4 p.m.). ??? Wearing a wide-brimmed hat and sunglasses. ??? Talk with your health care provider if you are having any emotional problems during your recovery, such as sadness, stress, or anxiety. ??? Keep all follow-up visits. This is important. You will need to return to your hospital, clinic,or transplant center often to have: ??? Blood tests. ??? Liver function tests. ??? Liver imaging tests. Contact a health care provider if: ??? You have any of these signs of infection at the incision site: ??? Redness, swelling, or pain. ??? Fluid or blood. ??? Warmth. ??? Pus or a bad smell. ??? You have side effects from medicines. ??? You have any changes in your temperature, blood pressure, or weight. ??? You become very tired or sleepy. ??? You have any symptoms of an infection, such as: ??? Cough. ??? Nasal stuffiness (congestion). ??? Sore throat. ??? Diarrhea. ??? Sores on your skin or in your mouth. ??? White patches on your mouth or tongue (oral thrush). ??? Burning pain while urinating. Get help right away if: ??? You have trouble breathing. ??? You have a seizure. ??? You have any signs or symptoms of possible rejection. These symptoms may represent a serious problem that is an emergency. Do not wait to see if the symptoms will go away. Get medical help right away. Call your local emergency services (911 in the [place] Do not drive yourself to the hospital. Summary ??? Work closely with your team of health care providers (transplant team) during your recovery. Itis important for you to have an active role in your treatment and recovery. ??? Stay close to your hospital, clinic, or transplant center. You will need to return often to have follow-up tests. ??? Make sure that you know when to call your health care provider and when to call emergency services. This information is not intended to replace advice given to you by your health care provider. Make sure you discuss any questions you have with your health care provider. Document Revised: 08/28/2020 Document Reviewed: 08/28/2020 [employer] Patient Education ?? 2021 [employer] 02/16/2022 23:30:13 Chronic Migraine Headache, Nmjn-ua-Aojt Chronic Migraine Headache A migraine headache is [...] these instructions at home: Medicines ??? Take agxh-qap-vauxzud and prescription medicines only as told by [...] Headache and Migraine Patients (CHAMP): headachemigraine.org ??? [place] Mig[employer] Foundation: americanmigrainefoundation.org ??? National Headache Foundation: [...] provider. Document Revised: 04/22/2020 Document Reviewed: 04/22/2020 [employer] Patient Education ?? 2021 [employer]. Follow Up Care 02/16/2022 20:57:50 With:Follow up with primary care provider Address: When:2 to 4 days Comments:Follow-up with your PCP??as well as your transplant team with the results of the repeat??comprehensive metabolic panel in 2 days Physician Emergency department Note * Felicia Roach MD: PERFORM Event Display: ED Note Physician Authored Date: [id number] MISHA JACKSON :1980 Age:41 years Sex:Female Visit Date:02/16/2022 Primary Care Physician: Hermes Ramirez MD Basic Information Time Seen: Felicia Roach MD / 02/16/2022 20:58 Chief Complaint Pt arrives with c/o migraine, body aches, V/D starting Mon. ??States no V/D today. ??States she took fiorcet and tylenol. ??Pt exposed to family that also had N/V/D. 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 Presents to the ED with multiple complaints including??body aches and pains, not feeling well, low-grade fever, nausea vomiting??as well as small amounts of diarrhea. ??Denies any chest pain or shortness of breath.?? She is currently under the care of her neurosurgeon??for chronic neck pain. ??MRI of the neck was negative Review of Systems: Constitutional:?No??fevers,?Positive for??chills,?No??sweats Eye:?No??recent visual problems ENT:?No??ear pain,?Positive for??nasal congestion,?No??sore throat Respiratory:?No??shortness of breath,?No??cough Cardiovascular:?No??Chest pain,?No??palpitations,?No??syncope Gastrointestinal:?Positive fornausea,?No??vomiting,?Positive for??diarrhea Genitourinary:?No??hematuria Clemente/Lymph:?No??bruising tendency,?No??swollen lymph glands Endocrine:?No??excessive thirst,??No??excessive hunger Musculoskeletal:??No??back pain,??No??neck pain,??Positive for??joint pain,??Positive for??muscle pain,??No??decreased range of motion Integumentary:?No??rash,?No??pruritus,?No??abrasions Neurologic: Alert & oriented X 4 Psychiatric:?No??anxiety,?No??depression Physical Exam Vitals & Measurements T:??37.1?C ??(Oral)?? HR:??119??(Peripheral)?? RR:??20?? BP:??115/82?? SpO2:??99%?? HT:??157.000??cm?? WT:??73.00??kg??(Estimated)?? Pain Score:??8?? O2 Therapy:??Room air?? General: Alert and oriented, well nourished,?No??acute distress. ??Blood pressure 115/82.?? Tachycardic with a rate of 119.?? Afebrile temperature 37.1.?? 98% on room air Eye: PERRL, EOMI,?Normal??conjunctiva HENT: Normocephalic, clear tympanic [...] appropriate mood and affect Medical Decision Making: WBC normal CBC showed chronic stable??mild thrombocytopenia 2 sets of blood cultures were drawn Urinalysis was negative for any infection Lactic acid was low test was negative Comprehensive metabolic panel??was positive for transaminitis with a bilirubin of 4.0??which is quite high compared to her previous blood work. ??She has had elevated transaminases in the past but not this high.?? She denies any abdominal complaints like pain and vomiting Stable chronic kidney disease stage III with a stable ??GFR of 44 Negative for influenza a and B She tested negative for COVID-19 CT scan abdomen and pelvis did not show anything acute specifically??no new findings in the transplanted liver According to her??transplant team in [place] which were consulted, her transaminitis and elevated bilirubin??is likely??be from her persistent vomiting??and her not able to keep her meds down Plan is to??repeat??a liver profile in 2 days??and the results have been relayed to them by??the patient herself. ??Patient has a direct line to the transplant team Procedure No Qualifying Data Assessment/Plan 1.??Intractable migraine??G43.919 Advised to follow-up with PCP for management 2.??Acute viral syndrome??B34.9 Tested negative for influenza and COVID??19 Supportive care 3.??Transaminitis??R74.01 CT scan abdomen and pelvis did not show anything acute Her transplant team in [place] was consulted??and they think the elevated transaminitis??and elevated bilirubin is from the persistent vomiting??and her not being able to keep her??medications down In this regard,??we will repeat??a liver profile in 2 days??and results will be provided with the patient to her transplant team.?? She has direct access and direct line to her transplant team. Orders: Acute Hepatitis LC, Blood, Stat, 02/16/22 21:50:00 BOOK CANVASSER, Once, Lab Collect Blood Culture, Peripheral Blood, Routine collect, RT - Routine, 02/16/22 21:06:00 BOOK CANVASSER, Once, Lab Collect, Print Label Blood Culture, Peripheral Blood, Routine collect, RT - Routine, 02/16/22 21:06:00 BOOK CANVASSER, Once, Lab Collect, Print Label Comprehensive Metabolic Panel, Blood, Routine, *Est. 02/18/22 +/- 2 days, Once, Lab Collect, Order for future visit US Abdomen Limited, *Est. 02/17/22 +/- 2 days, Routine, Reason: Post liver transplant/transaminitis, Transport Mode: Ambulatory Patient Discharge Condition Stable Discharge Disposition Discharged home Repeat comprehensive metabolic panel in 2 days??and forward results to your transplant team in [place] Patient Education Liver Transplant, Adult, Care After Chronic Migraine Headache, Vaht-pt-Smmo Follow Up With When Contact Information Follow up with primary care provider Within 2 to 4 days Additional Instructions: Follow-up with your PCP??as well as your transplant team with the results of the repeat??comprehensive metabolic panel in 2 days Medication Reconciliation Unchanged albuterol (albuterol 90 mcg/inh [...] Use:. Family History Cancer: Mother. Diagnostic Results CT Abdomen and Pelvis w/o Contrast 02/16/2022 23:19 BOOK CANVASSER XR Chest 2 Views 02/16/2022 21:48 BOOK CANVASSER XR Chest 2 Views ?? 02/16/22 21:44:28 ? EXAM DESCRIPTION: XR Chest 2 Views ?? REASON FOR STUDY: Cough, migraine headaches, fever, body aches. History of heart murmur, kidney and liver transplant ? DURATION: 3 days ?? Comparisons: 12/28/21 ? PREVIOUS SURGERY: kidney and liver transplant, c-sec, hernia, cyst from breast. ? SMOKING HISTORY: 20+ years 1/4 ppd ? TECHNIQUE: Frontal and lateral radiographic views of the chest acquired. ?? COMPARISON: 12/28/2021 ?? FINDINGS: LUNGS/PLEURA: No focal consolidation or pneumothorax. No pleural effusion. ?? HEART/MEDIASTINUM: Heart size is normal. Normal mediastinal and hilar contours. ?? HARDWARE/LINES/TUBES: None. ?? BONES: No acute findings. ?? OTHER: No other significant finding. ?? IMPRESSION: No acute cardiopulmonary abnormality. ?? THIS IS AN ELECTRONICALLY VERIFIED FINAL REPORT 02/16/2022 9:45 PM_Electronically signed by Radu Dixon M.D. ?? ML: ML ?? Report ID: [id number] Reading Location: [place] [id number] ?? Signed By: Radu Dixon MD ?? CT Abdomen and Pelvis w/o Contrast ?? 02/16/22 23:02:08 ? EXAM DESCRIPTION: CT Abdomen and Pelvis w/o Contrast ?? REASON FOR STUDY: headache, body aches, hx kidney and liver transplant, transaminitis w/ hyperbilirubinemia ? DURATION: 1 day ?? Comparisons: 01/05/22 ? PREVIOUS SURGERY: kidney and liver transplant, c-sec, hernia, cyst removed from breast ? CANCER HISTORY: TYPE: ? CANCER HISTORY: TREATMENT: ow long? 20+ years ? SMOKING HISTORY: 20+ years ? TECHNIQUE: CT scan of the abdomen and pelvis performed without intravenous and without oral contrast using helical scanning technique. Reconstructed coronal and sagittal MPR images reviewed. All images stored on PACS. Automated exposure control was used as a dose optimization technique for this examination. ?? COMPARISON: 01/05/2022 ?? FINDINGS: The sensitivity for detection of visceral lesions is diminished without the use of intravenous contrast. ?? LOWER CHEST: No significant pulmonary abnormalities. No effusion. ?? LIVER: Normal size. No identified cystic or solid masses. Postoperative changes of liver transplant. There are prominent varices in the left upper quadrant with splenorenal shunt. ?? GALLBLADDER: Surgically absent. ?? BILE DUCTS: No intrahepatic or extrahepatic ductal dilatation. ?? SPLEEN: Enlarged at 13.4 cm. ?? PANCREAS: No identified cystic or solid masses. No significant calcifications. No adjacent inflammation or peripancreatic fluid collections. Pancreatic duct not dilated. ?? ADRENALS: Normal. ?? KIDNEYS/URINARY TRACT: No identified significant cystic or solid masses. No stones. No hydronephrosis or hydroureter. Bilateral [place] kidneys are atrophic. Normal appearing transplant kidney in the right lower quadrant. Urinary bladder is unremarkable. ?? GI: No dilated bowel loops. No obvious wall thickening. Normal appendix. No significant diverticular disease. ?? PERITONEUM: No ascites or free air. ?? RETROPERITONEUM: No mass or adenopathy. ?? REPRODUCTIVE: No significant abnormality. ?? VASCULATURE: No abdominal aortic aneurysm. ?? MUSCULOSKELETAL: No significant abnormality. ?? OTHER: No other abnormality. ?? IMPRESSION: ?? 1. Postoperative changes of liver transplant. There are prominent varices in the left upper quadrant as well as a splenorenal shunt. 2. Surgical absence of the gallbladder. 3. Mild splenomegaly. 4. Atrophy of the bilateral [place] kidneys. Normal appearing transplant kidney in the right lower quadrant. ?? REFERENCE: Unless otherwise specified, no follow-up imaging is recommended for incidental renal and adrenal lesions per consensus recommendations based on imaging criteria. Further lab evaluation could be pursued based on clinical findings. ?? Management of the Incidental Renal Mass on CT: A White Paper of the ACR Incidental Findings Committee. J Am Gilberto Radiol. 2018 Apr;15(2):264-273. ?? Management of Incidental Adrenal Masses: A White Paper of the ACR Incidental Findings Committee. J Am Gilberto Radiol. 2017 Oct;14(8):2160-7644. ?? THIS IS AN ELECTRONICALLY VERIFIED FINAL REPORT 02/16/2022 11:17 PM_Electronically signed byJonas Ahn M.D. ?? KT: KT ?? Report ID: [id number] Reading Location: [place] [id number] ?? Signed By: Jonas Ahn MD Lab Results CBC and Differential?? LATEST RESULTS?? HISTORICAL RESULTS?? WBC?? 02/16/22 21:17?? 11.5?? 01/05/22?? 5.5?? RBC?? 02/16/22 21:17?? 4.62?? 01/05/22?? 3.90 ??Low?? Hgb?? 02/16/22 21:17?? 15.2?? 01/05/22?? 12.8?? Hct?? 02/16/22 21:17?? 43.5?? 01/05/22?? 37.4?? MCV?? 02/16/22 21:17?? 94.2?? 01/05/22?? 95.9?? MCH?? 02/16/22 21:17?? 32.9?? 01/05/22?? 32.8?? MCHC?? 02/16/22 21:17?? 34.9?? 01/05/22?? 34.2?? RDW-CV?? 02/16/22 21:17?? 12.1?? 01/05/22?? 12.0?? Platelets?? 02/16/22 21:17?? 117 ??Low?? 01/05/22?? 134 ??Low?? MPV?? 02/16/22 21:17?? 10.5 ??High?? 01/05/22?? 10.5 ??High?? Neutro Auto?? 02/16/22 21:17?? 85.7?? 01/05/22?? 64.9?? Lymph Auto?? 02/16/22 21:17?? 6.3?? 01/05/22?? 23.5?? Mccreary Auto?? 02/16/22 21:17?? 6.9?? 01/05/22?? 6.6?? Eos, Auto?? 02/16/22 21:17?? 0.3?? 01/05/22?? 4.4?? Basophil Auto?? 02/16/22 21:17?? 0.2?? 01/05/22?? 0.2?? Imm Gran Auto?? 02/16/22 21:17?? 0.6?? 01/05/22?? 0.4?? NRBC Auto?? 02/16/22 21:17?? 0.0?? 01/05/22?? 0.0?? Neutro Absolute?? 02/16/22 21:17?? 9.9 ??High?? 01/05/22?? 3.6?? Lymph Absolute?? 02/16/22 21:17?? 0.7 ??Low?? 01/05/22?? 1.3?? Mccreary Absolute?? 02/16/22 21:17?? 0.8?? 01/05/22?? 0.4?? Eos Absolute?? 02/16/22 21:17?? 0.0?? 01/05/22?? 0.2?? Baso Absolute?? 02/16/22 21:17?? 0.0?? 01/05/22?? 0.0?? Imm Gran Absolute?? 02/16/22 21:17?? 0.1?? 01/05/22?? 0.0?? NRBC Absolute?? 02/16/22 21:17?? 0.0?? 01/05/22?? 0.0? Routine Chemistry?? LATEST RESULTS?? HISTORICAL RESULTS?? Sodium Level?? 02/16/22 21:17?? 137?? 01/05/22?? 139?? Potassium Level?? 02/16/22 21:17?? 3.2 ??Low?? 01/05/22?? 3.2 ??Low?? Chloride Level?? 02/16/22 21:17?? 107?? 01/05/22?? 107?? CO2?? 02/16/22 21:17?? 22?? 01/05/22?? 24?? Alk Phos?? 02/16/22 21:17?? 432 ??High?? 01/05/22?? 215 ??High?? AST?? 02/16/22 21:17?? 373 ??High?? 01/05/22?? 15?? ALT?? 02/16/22 21:17?? 447 ??High?? 01/05/22?? 78?? BUN?? 02/16/22 21:17?? 18?? 01/05/22?? 16?? Glucose Level?? 02/16/22 21:17?? 102?? 01/05/22?? 98?? Creatinine Level?? 02/16/22 21:17?? 1.39 ??High?? 01/05/22?? 1.41 ??High?? eGFR AA?? 02/16/22 21:17?? 54?? 01/05/22?? 53?? eGFR Non-AA?? 02/16/22 21:17?? 45?? 01/05/22?? 44?? Calcium Level?? 02/16/22 21:17?? 8.5?? 01/05/22?? 8.4 ??Low?? Protein Total?? 02/16/22 21:17?? 6.7?? 01/05/22?? 7.0?? Albumin Level?? 02/16/22 21:17?? 3.1 ??Low?? 01/05/22?? 3.0 ??Low?? Bilirubin Total?? 02/16/22 21:17?? 4.0 ??High?? 01/05/22?? 0.4?? Bilirubin Direct?? 02/16/22 21:59?? 3.1 ??High? Anion Gap?? 02/16/22 21:17?? 11?? 01/05/22?? 11?? Lactic Acid Lvl?? 02/16/22 21:17?? 0.7?? 01/05/22?? 0.7?? Magnesium Level?? 02/16/22 21:17?? 1.5 ??Low?? 06/22/21?? 1.8? Testing?? LATEST RESULTS?? HISTORICAL RESULTS?? hCG Qual Serum?? 02/16/22 21:17?? Negative?? 01/01/22?? Negative? UA Macroscopic?? LATEST RESULTS?? HISTORICAL RESULTS?? Urine Srce?? 02/16/22 21:26?? Clean Catch?? 01/01/22?? Clean Catch?? Urine Volume?? 02/16/22 21:26?? 12?? 01/01/22?? 12?? UA Color?? 02/16/22 21:26?? Luz Maria Abnormal?? 01/01/22?? Yellow?? UA Appear?? 02/16/22 21:26?? Clear?? 01/01/22?? Cloudy Abnormal?? UA Glucose?? 02/16/22 21:26?? Normal?? 01/01/22?? Normal?? UA Bili?? 02/16/22 21:26?? 1 Abnormal?? 01/01/22?? Negative?? UA Ketones?? 02/16/22 21:26?? Negative?? 01/01/22?? Negative?? UA Spec Grav?? 02/16/22 21:26?? 1.015?? 01/01/22?? 1.010?? UA Blood?? 02/16/22 21:26?? Negative?? 01/01/22?? 250 Abnormal?? UA pH?? 02/16/22 21:26?? 5.0?? 01/01/22?? 5.0?? UA Protein?? 02/16/22 21:26?? Trace Abnormal?? 01/01/22?? Trace Abnormal?? UA Urobilinogen?? 02/16/22 21:26?? 4 Abnormal?? 01/01/22?? Normal?? UA Nitrite?? 02/16/22 21:26?? Negative?? 01/01/22?? Positive Abnormal?? UA Leuk Est?? 02/16/22 21:26?? Negative?? 01/01/22?? 500 Abnormal?? UA Culture Ind?.?? 02/16/22 21:26?? Not Indicated?? 01/01/22?? Indicated Abnormal? UA Microscopic?? LATEST RESULTS?? HISTORICAL RESULTS?? UA WBC?? 02/16/22 21:26?? 0-5?? 01/01/22?? 16-20 Abnormal?? UA RBC?? 02/16/22 21:26?? None?? 01/01/22?? 6-10 Abnormal?? UA Squam Epithelial?? 02/16/22 21:26?? Moderate Abnormal?? 01/01/22?? Occasional?? UA Bacteria?? 02/16/22 21:26?? Few Abnormal?? 01/01/22?? Moderate Abnormal?? UA Amorph?? 11/30/22 21:26?? Many? Infectious Disease?? LATEST RESULTS?? HISTORICAL RESULTS?? Influenza A?? 02/16/22 21:36?? Negative? Influenza B?? 02/16/22 21:36?? Negative? Employed in healthcare??? 02/16/22 21:36?? No?? 12/28/21?? No?? Hospitalized due to COVID-19??? 02/16/22 21:36?? No?? 12/28/21?? No?? In ICU??? 02/16/22 21:36?? No?? 12/28/21?? No?? Group care resident??? 02/16/22 21:36?? No?? 12/28/21?? No?? status??? 02/16/22 21:36?? Unknown?? 12/28/21?? Unknown?? SARS-CoV-2 (COVID-19) ([facility])?? 02/16/22 21:36?? Negative? Int Control COVID-19 [place]?? 02/16/22 21:36?? Valid? Lot # COVID-19 [place]?? 02/16/22 21:36?? [id number]? Lot Exp COVID-19 [facility]?? 02/16/22 21:36?? 05/04/23? Attending Attestation Stable Electronically Signed on 02/16/22 11:31 PM Felicia Roach MD XR Chest 2 Views * Radu Dixon MD: VERIFY, VERIFY, PERFORM Event Display: Report Authored Date: EXAM DESCRIPTION: XR Chest 2 Views REASON FOR STUDY: Cough, migraine headaches, fever, body aches. History of heart murmur, kidney and liver transplant DURATION: 3 days Comparisons: 12/28/21 PREVIOUS SURGERY: kidney and liver transplant, c-sec, hernia, cyst from breast. SMOKING HISTORY: 20+ years / ppd TECHNIQUE: Frontal and lateral radiographic views of the chest acquired. COMPARISON: 12/28/2021 FINDINGS: LUNGS/PLEURA: No focal consolidation or pneumothorax. No pleural effusion. HEART/MEDIASTINUM: Heart size is normal. Normal mediastinal and hilar contours. HARDWARE/LINES/TUBES: None. BONES: No acute findings. OTHER: No other significant finding. IMPRESSION: No acute cardiopulmonary abnormality. THIS IS AN ELECTRONICALLY VERIFIED FINAL REPORT 02/16/2022 9:45 PM - Electronically signed by Radu Dixon M.D. ML: ML Report ID: [id number] Reading Location: [place] [id number] Final Dictated by: Radu Dixon MD Dictated DT/TM: 02/16/2022 9:48 pm Signed by: Radu Dixon MD Signed (Electronic Signature): 02/16/2022 9:[address] Abdomen and Pelvis WO contrast * Jonas Ahn MD: VERIFY, VERIFY, PERFORM Event Display: Report Authored Date: EXAM DESCRIPTION: CT Abdomen and Pelvis w/o Contrast REASON FOR STUDY: headache, body aches, hx kidney and liver transplant, transaminitis w/ hyperbilirubinemia DURATION: 1 day Comparisons: 01/05/22 PREVIOUS SURGERY: kidney and liver transplant, c-sec, hernia, cyst removed from breast CANCER HISTORY: TYPE: CANCER HISTORY: TREATMENT: ow long? 20+ years SMOKING HISTORY: 20+ years TECHNIQUE: CT scan of the abdomen and pelvis performed without intravenous and without oral contrast using helical scanning technique. Reconstructed coronal and sagittal MPR images reviewed. All images stored on PACS. Automated exposure control was used as a dose optimization technique for this examination. COMPARISON: 01/05/2022 FINDINGS: The sensitivity for detection of visceral lesions is diminished without the use of intravenous contrast. LOWER CHEST: No significant pulmonary abnormalities. No effusion. LIVER: Normal size. No identified cystic or solid masses. Postoperative changes of liver transplant. There are prominent varices in the left upper quadrant with splenorenal shunt. GALLBLADDER: Surgically absent. BILE DUCTS: No intrahepatic or extrahepatic ductal dilatation. SPLEEN: Enlarged at 13.4 cm. PANCREAS: No identified cystic or solid masses. No significant calcifications. No adjacent inflammation or peripancreatic fluid collections. Pancreatic duct not dilated. ADRENALS: Normal. KIDNEYS/URINARY TRACT: No identified significant cystic or solid masses. No stones. No hydronephrosis or hydroureter. Bilateral [place] kidneys are atrophic. Normal appearing transplant kidney in the right lower quadrant. Urinary bladder is unremarkable. GI: No dilated bowel loops. No obvious wall thickening. Normal appendix. No significant diverticular disease. PERITONEUM: No ascites or free air. RETROPERITONEUM: No mass or adenopathy. REPRODUCTIVE: No significant abnormality. VASCULATURE: No abdominal aortic aneurysm. MUSCULOSKELETAL: No significant abnormality. OTHER: No other abnormality. IMPRESSION: 1. Postoperative changes of liver transplant. There are prominent varices in the left upper quadrant as well as a splenorenal shunt. 2. Surgical absence of the gallbladder. 3. Mild splenomegaly. 4. Atrophy of the bilateral [place] kidneys. Normal appearing transplant kidney in the right lower quadrant. REFERENCE: Unless otherwise specified, no follow-up imaging is recommended for incidental renal and adrenal lesions per consensus recommendations based on imaging criteria. Further lab evaluation could be pursued based on clinical findings. Management of the Incidental Renal Mass on CT: A White Paper of the ACR Incidental Findings Committee. J Am Gilberto Radiol. 2018 Apr;15(2):264-273. Management of Incidental Adrenal Masses: A White Paper of the ACR Incidental Findings Committee. J Am Gilberto Radiol. 2017 Oct;14(8):8149-2579. THIS IS AN ELECTRONICALLY VERIFIED FINAL REPORT 02/16/2022 11:17 PM - Electronically signed by Jonas Ahn M.D. KT: MARIA ELENA Report ID: [id number] Reading Location: [id number] Final Dictated by: Jonas Ahn MD Dictated DT/TM: 02/16/2022 11:19 pm Signed by: Jonas Ahn MD Signed (Electronic Signature): 02/16/2022 11:19 pm Patient Care team information Personnel Name: Hermes Ramirez MD Address: Address: [address] [place] [address], [address]
--- OUTSIDE RECORDS SUMMARY | 2024-03-20 11:44 | XMS_ITS | Continuity of Care Document ---
Author Organization [facility] Address [address] [place] [address] Care Team Providers Care Steel Handler Name Role Phone Hermes Ramirez Chris Primary Care Physician Encounter VELARDE Date(s): 07/19/21 - 07/20/[address] [id number] Encounter Diagnosis Urinary tract infection(Discharge Diagnosis) - 07/19/21 Migraine(Discharge Diagnosis) - 07/19/21 Discharge Disposition: Home or Self Care Attending Physician: Mike Malik MD Admitting Physician: Mike Malik MD Allergies, Adverse Reactions, Alerts Substance Reaction Severity Status gentamicin Moderate Active erythromycin Medication interaction Activ e aspirin Medication interaction Activ e Toradol Kidney failure as a complication of care Active NSAIDs Severe Active Assessment and Plan Diagnostic Tests Pending * Urine Culture 07/19/21 Future Scheduled Tests Radiology* MRI Spine Cervical [...] tab, 0 Refill(s), 07/23/21 20:13:00 CDT, Pharmacy: [facility] - [place], [place], [address], cm, 07/16/21 20:12:00 CDT, Height/Length [...] BID, # 180 tab, 3 Refill(s), Pharmacy: [place], [place], [address], cm, 10/22/20 21:26:00 CDT, Height/Length [...] Name Date Urinalysis with Culture if Indicated 07/19 .Urine Volume 07/19/21 Urinalysis Microscopic 07/19/21 Most recent to oldest [Reference Range]: 1 UA Color Straw (07/19/21 10:34 PM) UA WBC [0-5] 16-20 *ABN* (07/19/21 10:34 PM) UA Urobilinogen [Normal mg/dL] Normal mg /dL (07/19/21 10:34 PM) UA Bili [Negative mg/dL] Negative mg/dL (07/19/21 10:34 PM) UA Ketones [Negative mg/dL] Negative mg/ dL (07/19/21 10:34 PM) UA RBC [0-3] 16-20 *ABN* (07/19/21 10:34 PM) UA Leuk Est [Negative Guille/mcL] 500 Guille/m cL *ABN* (07/19/21 10:34 PM) UA Nitrite [Negative] Negative (07/19/21 10:34 PM) UA Glucose [Normal mg/dL] Normal mg/dL (07/19/21 10:34 PM) UA Bacteria [None Seen] Few *ABN* (07/19/21 10:34 PM) UA Protein [Negative mg/dL] Negative mg/ dL (07/19/21 10:34 PM) UA Blood [Negative Rocael/mcL] 250 Rocael/mcL *ABN* (07/19/21 10:34 PM) UA Mucous [None Seen] None Seen (07/19/21 10:34 PM) UA Spec Grav 1.005 (07/19/21 10:34 PM) UA Squam Epithelial [None Seen] Few (07/19/21 10:34 PM) UA pH [5.0-9.0] 5.0 (07/19/21 10:34 PM) UA Appear [Clear] Hazy (07/19/21 10:34 PM) UA Culture Ind?. Indicated *ABN* (07/19/21 10:34 PM) Urine Srce Clean Catch (07/19/21 10:34 PM) Urine Volume 12 mL (07/19/21 10:34 PM) UA Yeast [None Seen] None Seen (07/19/21 10:34 PM) Vital Signs Most recent to oldest [Reference Range]: 1 2 Temperature Oral [35.8-37.3 Deg C] 37.0 Deg C (07/19/21 10:13 PM) Apical Heart Rate [60-100 bpm] 86 bpm (07/20/21 1:44 AM) Peripheral Pulse Rate [60-100 bpm] 104 b pm *HI* (07/19/21 10:13 PM) Respiratory Rate [12-24 br/min] 15 br/mi n (07/20/21 1:44 AM) 18 br/min (07/19/21 10:13 PM) Blood Pressure [90-140/60-90 mmHg] 131/7 3mmHg (07/20/21 1:44 AM) 141/85mmHg *HI* (07/19/21 10:13 PM) Weight Dosing 77.00 kg (07/19/21 10:26 PM) Weight Estimated 77.00 kg (07/19/21 10:13 PM) Height/Length Dosing 157.000 cm (07/19/21 10:26 PM) Body Mass Index Estimated 31 (07/19/21 10:13 PM) Height/Length Estimated 157.000 cm (07/19/21 10:13 PM) Social History Social History Type Response Smoking Status 5-9 cigarettes (betw een 1/4 to 1/2 pack)/day in last 30 days entered on: 05/12/21 Sex Care Team Personnel Name: Hermes Ramirez MD Address: [address] [place] [address], [address] [place] [address]-
--- OUTSIDE RECORDS SUMMARY | 2024-03-20 11:44 | XMS_ITS | Continuity of Care Document ---
Author Organization [facility] Address [address] [place] [address] Care Team Providers Care Ict Trainer Name Role Phone Hermes Ramirez Primary Care Physician Encounter ONOFREEver MCGRAW [id number] Date(s): 06/14/21 - 06/14/[address] [id number] Encounter Diagnosis Migraine headache(Discharge Diagnosis) - 06/14/21 Discharge Disposition: Home or Self Care Attending [...] Spine Cervical w/o Contrast 06/11/21 Functional Status 06/14/21 Family Member Travel History No recent t [...] BID, # 180 tab, 3 Refill(s), Pharmacy: [place], [place], [address], cm, 10/22/20 21:26:00 CDT, Height/Length [...] Oral [35.8-37.3 Deg C] 36.5 Deg C (06/14/21 7:21 PM) Peripheral Pulse Rate [60-100 bpm] 124 b pm *HI* (06/14/21 7:21 PM) Respiratory Rate [12-24 br/min] 18 br/mi n (06/14/21 7:21 PM) Blood Pressure [90-140/60-90 mmHg] 157/8 5mmHg *HI* (06/14/21 7:21 PM) Weight Dosing 77.00 kg (06/14/21 7:34 PM) Weight Estimated 77.00 kg (06/14/21 7:21 PM) Height/Length Dosing 158.000 cm (06/14/21 7:34 PM) Body Mass Index Estimated 31 (06/14/21 7:21 PM) Height/Length Estimated 158.000 cm (06/14/21 7:21 PM) Social History Social History Type Response Smoking Status 5-9 cigarettes (betw een 1/4 to 1/2 pack)/day in last 30 days entered on: 05/12/21 Sex Hospital Discharge Instructions Patient Education 06/14/2021 19:26:01 Migraine Headache, Jimd-ya-Anax Migraine Headache A migraine headache is a [...] these instructions at home: Medicines ??? Take ghft-yjn-ptljqmn and prescription medicines only as told by your doctor. ??? Ask your doctor if the medicine prescribed to you: ??? Requires you to avoid driving or using heavy machinery. ??? Can cause trouble pooping (constipation). You may need to take these steps to prevent or treat trouble pooping: ??? Drink enough fluid to keep your pee (urine) pale yellow. ??? Take awxf-kez-cpkogks or prescription medicines. ??? Eat foods that [...] provider. Document Revised: 06/28/2019 Document Reviewed: 04/18/2019 [employer] Patient Education ?? 2020 [employer] Follow Up Care 06/14/2021 19:21:41 With:Follow up with primary care provider Address: When:5 to 7 days Care Team Personnel Name: Hermes Ramirez MD Address: [address] [place] [address], [address]
--- OUTSIDE RECORDS SUMMARY | 2024-03-20 11:44 | XMS_ITS | Continuity of Care Document ---
Author Organization Formerly [facility], later [facility] Address [address] [place] [address] Care Team Providers Care Animal Physiologist Name Role Phone Hermes Ramirez Primary Care Physician Encounter RANDY MCGRAW [id number] Date(s): 09/26/23 - 09/26/[address] [address] [place] Discharge Disposition: Home or Self Care Attending Physician: Allen Manzano Admitting Physician: Allen Manzano Referring Physician: Allen Manzano Allergies, Adverse Reactions, Alerts Substance Reaction Severity Status codeine Unknown Itching Severe Active gentamicin Moderate Active erythromycin Medication interaction Activ e aspirin Medication interaction Severe Activ e morphine 1 redness Itching Mild Active NSAIDs Severe Active Toradol Kidney failure as a complication of care Severe Active azithromycin Unknown Severe Active 1localized reaction at iv site Assessment and Plan Future Appointments Diagnostic Tests Pending * Cyclosporine, Blood LC-MS/MS LC 09/26/23 Future Scheduled Tests Radiology* MG Mammo Diagnostic [...] BID, # 120 cap, 2 Refill(s), Pharmacy: [facility] [place], 157.48, cm, 07/23/23 17:59:00 CDT, Height, 88.45, [...] cartriges/day, # 1 EA, 2 Refill(s), Pharmacy: [facility], 157.48, cm, 08/29/23 14:22:00 CDT, Height, 88, kg, 08/29/23 14:27:00 CDT, Weight Dosing Start Date: 08/29/23 Status: Ordered pantoprazole 40 mg oral delayed release tablet 1 tab, Oral, Daily, # 90 tab, 0 Refill(s), Pharmacy: [id number], 157.48, cm, 06/07/23 16:07:00 CDT, Height, 89.36, [...] QID, # 360 tab, 0 Refill(s), Pharmacy: [id number], 157.48, cm, 08/29/23 14:22:00 CDT, Height, 88, kg, 08/29/23 14:27:00 CDT, Weight Dosing Start Date: 09/05/23 Status: Ordered venlafaxine 37.5 mg oral capsule, extended release 37.5 mg = 1 cap, Oral, Daily, # 90 cap, 0 Refill(s), Pharmacy: [facility]#[id number]- [place], 157.48, cm, 08/29/23 14:22:00 CDT, Height, [...] 2 08/24/23 Completed Screening Pap Smear; Allison ramriez, Preparing And Conveyance Of Cervical/Vaginal Smear To Laboratory 3 07/2022 Completed Examining eye 2021 Completed Bladder washout 12/14/20 Completed Kidney transplant 05/13/20 Complet ed Tx - Liver transplantation 05/08/20 Completed delivery Complet ed cyst removal from breast Completed Hernia Completed liver transplant Complete d 03/09/23 repeat in 6 months 2normal 3normal Results Laboratory List Name Date Automated Diff 09/26/23 CBC w/ Diff 09/26/23 Comprehensive Metabolic Panel 09/26/23 GGT 09/26/23 Most recent to oldest [Reference Range]: 1 WBC [4.0-11.5 K/mcL] 5.4 K/mcL (09/26/23 6:28 AM) RBC [4.20-5.40 x10^6/mcL] 3.87 x10^6/mcL *LOW* (09/26/23 6:28 AM) Neutro Auto 55.7 % *NA* (09/26/23 6:28 AM) Lymph Auto 30.6 % *NA* (09/26/23 6:28 AM) [place] Auto 8.1 % *NA* (09/26/23 6:28 AM) Basophil Auto 0.2 % *NA* (09/26/23 6:28 AM) BUN [7-18 mg/dL] 26 mg/dL *HI* (09/26/23 6:28 AM) Glucose Level [70-110 mg/dL] 89 mg/dL (09/26/23 6:28 AM) Potassium Level [3.5-5.1 mmol/L] 3.7 mmo l/L (09/26/23 6:28 AM) Baso Absolute [0.0-0.1 x10^3/mcL] 0.0 x1 0^3/mcL (09/26/23 6:28 AM) MCV [78.0-100.0 fL] 100.8 fL *HI* (09/26/23 6:28 AM) AST [15-37 unit/L] 26 unit/L (09/26/23 6:28 AM) ALT [12-78 unit/L] 46 unit/L (09/26/23 6:28 AM) MCHC [29.0-37.5 g/dL] 33.1 g/dL (09/26/23 6:28 AM) Sodium Level [136-145 mmol/L] 143 mmol/L (09/26/23 6:28 AM) Lymph Absolute [0.8-5.8 x10^3/mcL] 1.7 x 10^3/mcL (09/26/23 6:28 AM) Hct [36.0-48.0 %] 39.0 % (09/26/23 6:28 AM) Calcium Level [8.5-10.1 mg/dL] 8.5 mg/dL (09/26/23 6:28 AM) [place] Absolute [0.1-1.5 x10^3/mcL] 0.4 x1 0^3/mcL (09/26/23 6:28 AM) Albumin Level [3.4-5.0 g/dL] 3.1 g/dL *LOW* (09/26/23 6:28 AM) Protein Total [6.4-8.2 g/dL] 6.8 g/dL (09/26/23 6:28 AM) MCH [27.0-34.0 pg] 33.3 pg (09/26/23 6:28 AM) Neutro Absolute [1.5-8.1 x10^3/mcL] 3.0 x10^3/mcL (09/26/23 6:28 AM) Bilirubin Total [0.0-1.0 mg/dL] 0.7 mg/d L (09/26/23 6:28 AM) Hgb [12.0-16.0 g/dL] 12.9 g/dL (09/26/23 6:28 AM) Alk Phos [46-130 unit/L] 280 unit/L *HI* (09/26/23 6:28 AM) MPV [6.0-10.0 fL] 11.1 fL *HI* (09/26/23 6:28 AM) Platelets [150-450 K/mcL] 153 K/mcL (09/26/23 6:28 AM) CO2 [21-32 mmol/L] 21 mmol/L (09/26/23 6:28 AM) Eos Absolute [0.0-0.5 x10^3/mcL] 0.3 x10 ^3/mcL (09/26/23 6:28 AM) GGT [5-55 unit/L] 229 unit/L *HI* (09/26/23 6:28 AM) Chloride Level [97-107 mmol/L] 110 mmol/ L *HI* (09/26/23 6:28 AM) RDW-CV [11.5-15.0 %] 12.0 % (09/26/23 6:28 AM) Imm Gran Absolute [0.0-0.1 x10^3/mcL] 0. 0 x10^3/mcL (09/26/23 6:28 AM) Imm Gran Auto 0.4 % *NA* (09/26/23 6:28 AM) NRBC Auto 0.0 % *NA* (09/26/23 6:28 AM) NRBC Absolute [0.0-0.0 x10^3/mcL] 0.0 x1 0^3/mcL (09/26/23 6:28 AM) Slide Review Not Indicated (09/26/23 6:28 AM) Creatinine Level [0.60-1.30 mg/dL] 1.50 mg/dL 1 *HI* (09/26/23 6:28 AM) Anion Gap [5-15 mmol/L] 16 mmol/L *HI* (09/26/23 6:28 AM) Eos, Auto 5.0 % *NA* (09/26/23 6:28 AM) eGFR CKD-EPI 45 mL/min/1.73 m2 *NA* (09/26/23 6:28 AM) 1Interpretive Data: Association of GFR [...] information Care Team Personnel Name: Jessee Jones RAIMANN MACHINE OPERATOR Position: Physician Member Role: Nurse Practitioner Address: Address: [address] [place] [address], [address] Name: Latoya Marquez RAIMANN MACHINE OPERATOR Position: Physician Member Role: Nurse Practitioner Address: Address: [address] [place] [address]- Name: Leonila Gonzalez RAIMANN MACHINE OPERATOR Position: Physician Member Role: Nurse Practitioner Address: Address: [address] [place] [address] Name: Beth Brandt RAIMANN MACHINE OPERATOR Position: Physician Member Role: Nurse Practitioner Address: Address: [address] [place] [address] Name: Hermes Ramirez MD Position: Physician Member Role: Informed Provider Address: Address: [address] [facility], [address] Name: Pillo Moe RAIMANN MACHINE OPERATOR Position: Physician Member Role: Nurse Practitioner Address: Address: [address] [place] [address], [address] [facility] Care Team Related Persons Name: STACIA JONES Address: Home [address] [id number] Name: ROBYN JAMA Name: NAIF CHOI Name: MADY CHEN Name: MADY CHEN
--- OUTSIDE RECORDS SUMMARY | 2024-03-20 11:44 | XMS_ITS | Continuity of Care Document ---
Author Organization [facility] Address [address] [place] [address] Care Team Providers Care Dulser Name Role Phone Hermes Ramirez Primary Care Physician [phone] Encounter ONOFRE MCGRAW [id number] Date(s): 03/26/21 - 03/26/[address] [address] Encounter Diagnosis Migraine headache(Discharge Diagnosis) - 03/26/21 Discharge Disposition: Home or Self Care Attending [...] Status 03/26/21 Other exposure to Infectious Disease COV ID-19 [...] BID, # 180 tab, 3 Refill(s), Pharmacy: [place], [place], 157, cm, 10/22/20 21:26:00 CDT, Height/Length [...] bedtime, # 45 g, 2 Refill(s), Pharmacy: [place], [place], 157.48, cm, 08/18/20 12:26:00 CDT, Height/Length [...] Oral [35.8-37.3 Deg C] 37.2 Deg C (03/26/21 2:02 PM) Apical Heart Rate [60-100 bpm] 99 bpm (03/26/21 3:02 PM) Peripheral Pulse Rate [60-100 bpm] 102 b pm *HI* (03/26/21 2:02 PM) Respiratory Rate [12-24 br/min] 15 br/mi n (03/26/21 2:02 PM) Blood Pressure [90-140/60-90 mmHg] 138/9 5mmHg (03/26/21 3:02 PM) 153/99mmHg *HI* (03/26/21 2:02 PM) Weight 77.00 kg (03/26/21 2:02 PM) Weight Dosing 77.00 kg (03/26/21 2:05 PM) Height 157.480 cm (03/26/21 2:02 PM) Height/Length Dosing 157.480 cm (03/26/21 2:05 PM) Body Mass Index Estimated 31 (03/26/21 2:02 PM) Social History Social History Type Response Smoking Status 5-9 cigarettes (betw een 1/4 to 1/2 pack)/day in last 30 days entered on: 08/18/20 Sex Hospital Discharge Instructions Patient Education 03/26/2021 14:37:46 Migraine Headache, Rcpb-tz-Bzmc Migraine Headache A migraine headache is a [...] these instructions at home: Medicines ??? Take tgub-jtb-ftiptgr and prescription medicines only as told by your doctor. ??? Ask your doctor if the medicine prescribed to you: ??? Requires you to avoid driving or using heavy machinery. ??? Can cause trouble pooping (constipation). You may need to take these steps to prevent or treat trouble pooping: ??? Drink enough fluid to keep your pee (urine) pale yellow. ??? Take zzqn-ken-fjntueg or prescription medicines. ??? Eat foods that [...] provider. Document Revised: 06/28/2019 Document Reviewed: 04/18/2019 [employer] Patient Education ?? 2020 [employer] Follow Up Care 03/26/2021 14:02:49 With:Follow up with specialist Address: When:3 to 5 days Comments:To see neurologist next week as scheduled
--- OUTSIDE RECORDS SUMMARY | 2024-03-20 11:44 | XMS_ITS | Continuity of Care Document ---
Author Organization [facility] Address [address] [place] [address] Care Team Providers Care Research Engineer Name Role Phone Hermes Ramirez Primary Care Physician [phone] Encounter ONOFRE MCGRAW [id number] Date(s): 04/24/23 - 04/24/[address] [address] [place] Encounter Diagnosis Migraine(Discharge Diagnosis) - 04/24/23 Discharge Disposition: Home or Self Care Attending [...] and Plan Extracted from: Title:ED Provider Note Author:Megan House MD Date:04/24/23 Assessment/Plan Migraine??G43.909 History of kidney and liver transplant Plan: Patient received morphine 2 mg IM, Phenergan 25 mg IM and Benadryl 50 mg IM. ??She improved markedly and she is being discharged home with recommendations to follow-up with her neurologist??JENNI ?? Orders: Discharge Patient, 04/24/23 16:37:00 SANDING MACHINE TENDER, Home Independently Patient Discharge Condition Improved Discharge Disposition Home Patient Education Migraine Headache Follow Up With When Contact Information Follow up with primary care provider Within 3 to 5 days Additional Instructions: We suggest follow-up with neurology as already as possible Future Appointments Future Scheduled Tests Laboratory* Urinalysis [...] Daily, # 30 tab, 11 Refill(s), Pharmacy: [place], [place], 157.48, cm, 01/04/23 15:03:00 CDT, Height/Length [...] BID, # 60 cap, 11 Refill(s), Pharmacy: [place], [place], 157.48, cm, 01/04/23 15:03:00 CDT, Height/Length [...] Oral [35.8-37.3 Deg C] 37.1 Deg C (04/24/23 2:57 PM) Peripheral Pulse Rate [60-100 bpm] 76 bp m (04/24/23 4:57 PM) 77 bpm (04/24/23 2:57 PM) Respiratory Rate [12-24 br/min] 18 br/mi n (04/24/23 4:57 PM) 18 br/min (04/24/23 2:57 PM) Blood Pressure [90-140/60-90 mmHg] 140/8 8mmHg (04/24/23 4:57 PM) 132/78mmHg (04/24/23 2:57 PM) Mean Arterial Pressure, Cuff [70-110 mmH g] 96 mmHg (04/24/23 2:57 PM) Weight 81.65 kg (04/24/23 2:57 PM) Weight Dosing 81.650 kg (04/24/23 2:57 PM) Height 157.48 cm (04/24/23 2:57 PM) Body Mass Index 32.92 kg/m2 (04/24/23 2:57 PM) Social History Social History Type Response Tobacco Current everyday tob acco user Tobacco Use:. 1 Sex 1Pt states that she smokes half a pack a day. Hospital Discharge Instructions Patient Education 04/24/2023 15:49:35 Migraine Headache Migraine Headache A migraine headache [...] these instructions at home: Medicines ??? Take hima-occ-wthqasx and prescription medicines only as told by your health care provider. ??? Ask your health care provider if the medicine prescribed to you: ??? Requires you to avoid driving or using heavy machinery. ??? Can cause constipation. You may need to take these actions to prevent or treat constipation: ??? Drink enough fluid to keep your urine pale yellow. ??? Take ehxe-oka-ydfrpwf or prescription medicines. ??? Eat foods that [...] provider. Document Revised: 06/28/2019 Document Reviewed: 04/18/2019 [employer] Patient Education ?? 2022 [employer] Follow Up Care 04/24/2023 14:57:54 With:Follow up with primary care provider Address:Unknown When:3 to 5 days Comments:We suggest follow-up with neurology as already as possible Physician Emergency department Note * Fernando House MD: MODIFY, PERFORM, MODIFY Event Display: ED Note Physician Authored Date: [id number] MISHA JACKSON :1980 Age:42 years Sex:Female Visit Date:04/24/2023 Primary Care Physician: Hermes Ramirez MD Basic Information Time Seen: Fernando House MD / 04/24/2023 15:35 Chief Complaint complaiining of a migraine headache on the right operations systems specialist of head. ??complains of nausea photosensitivity boobs hurting and having crmps. ??states period normal causes my migraines. prehospital tylenol at 1200 History Of Present Illness: Patient with a history of??kidney and liver transplant, recurrent migraine headache has been seen at our ER multiple times in the past she comes in today with another episode of??migraine headache??started this morning it is mostly present in the right temporal region throbbing??with nausea and light sensitivity but no vomiting??no symptoms focal numbness or weakness. Patient used to see a neurologist and have??Botox injections??with good results but she lost her insurance and she has not seen her neurologist for some time now. Review of Systems: Constitutional:?No??fevers,?No??chills,?No??sweats Eye:?No??recent visual problems ENT:?No??ear pain,?No??nasal congestion,?No??sore throat Respiratory:?No??shortness of breath,?No??cough Cardiovascular:?No??Chest pain,?No??palpitations,?No??syncope Gastrointestinal:?Positive fornausea,?No??vomiting,?No??diarrhea Genitourinary:?No??hematuria Clemente/Lymph:?No??bruising tendency,?No??swollen lymph glands Endocrine:?No??excessive thirst,??No??excessive hunger Musculoskeletal:??No??back pain,??No??neck pain,??No??joint pain,??No??muscle pain,??No??decreased range of motion Integumentary:?No??rash,?No??pruritus,?No??abrasions Neurologic: Alert & oriented X 4 Psychiatric:?No??anxiety,?No??depression Physical Exam Vitals & Measurements T:??37.1?C ??(Oral)?? HR:??77??(Peripheral)?? RR:??18?? BP:??132/78?? SpO2:??97%?? HT:??157.48??cm?? WT:??81.65??kg?? BMI:??32.92?? Pain Score:??8?? O2 [...] intact]. Psychiatric: [Cooperative, appropriate mood and affect]. Procedure No Qualifying Data Assessment/Plan Migraine??G43.909 History of kidney and liver transplant Plan: Patient received morphine 2 mg IM, Phenergan 25 mg IM and Benadryl 50 mg IM. ??She improved markedly and she is being discharged home with recommendations to follow-up with her neurologist??JENNI Orders: Discharge Patient, 04/24/23 16:37:00 SANDING MACHINE TENDER, Home Independently Patient Discharge Condition Improved Discharge Disposition Home Patient Education Migraine Headache Follow Up With When Contact Information Follow up with primary care provider Within 3 to 5 days Additional Instructions: We suggest follow-up with neurology as already as possible Medication Reconciliation Unchanged amLODIPine (amLODIPine [...] Liver transplantation (05/08/2020)???Mammogram (2020)??? delivery???cyst removal from [facility]???Hernia???liver transplant Medication Administration Given Benadryl, 50 mg, Intramuscular morphine, 2 mg, Intramuscular Phenergan, 25 mg, Intramuscular Allergies NSAIDs Toradol??(Kidney failure as a complication of care) aspirin??(Medication interaction) azithromycin??(Unknown) codeine??(Unknown, Itching) gentamicin morphine??(redness, Itching) erythromycin??(Medication interaction) Social History Alcohol Never Electronic Cigarette/Vaping Electronic Cigarette Use: Never. Substance Use Never Tobacco Current everyday tobacco user Tobacco Use:.- Comments: Pt states that she smokes half a pack a day. Family History Cancer: Mother. Electronically Signed on 04/24/23 04:39 PM Fernando House MD Patient Care team information Care Team Personnel Name: Jessee Jones CENTERLESS GRINDER TENDER Position: Physician Member Role: Nurse Practitioner Address: Address: [address] [place] [address], [address] [place] [address]- Name: Latoya Marquez CENTERLESS GRINDER TENDER Position: Physician Member Role: Nurse Practitioner Address: Address: [address] [place] [address]- Name: Leonila Gonzalez CENTERLESS GRINDER TENDER Position: Physician Member Role: Nurse Practitioner Address: Address: [address] [place] [address]- Name: Beth Brandt CENTERLESS GRINDER TENDER Position: Physician Member Role: Nurse Practitioner Address: Address: [address] [place] [address] Name: Hermes Ramirez MD Position: Physician Member Role: Informed Provider Address: Address: [address] [place] [address], [address] [place] [address]- Name: Pillo Moe CENTERLESS GRINDER TENDER Position: Physician Member Role: Nurse Practitioner Address: Address: [address] [place] [address], [address] [facility] Care Team Related Persons Name: STACIA JONES Address: Home [address] [place], [place] [id number] Name: ROBYN JAMA
--- OUTSIDE RECORDS SUMMARY | 2024-03-20 11:44 | XMS_ITS | Continuity of Care Document ---
Author Organization [facility] Address [address] [place] [address] Care Team Providers Care Jerker Name Role Phone Hermes Ramirez Primary Care Physician Encounter [facility] [id number] Date(s): 12/17/21 - 12/17/[address] [address] Encounter Diagnosis Migraine headache(Discharge Diagnosis) - 12/17/21 Paresthesia of skin(Discharge Diagnosis) - 12/17/21 Otalgia of right ear(Discharge Diagnosis) - 12/17/21 Migraine, unspecified, not intractable, without status migrainosus(Final) [...] wheezing, # 6.7 g, 0 Refill(s), Pharmacy: [place], [place], 73, cm, 09/13/21 23:53:00 CDT, Height/Length [...] needed, # 12 cap, 0 Refill(s), Pharmacy: [place], [place], 157, cm, 11/04/21 20:02:00 CDT, Height/Length Dosing, 73, kg, 11/04/21 20:02:00 CDT, Weight Dosing Start Date: 11/04/21 Status: Ordered cefaclor 500 mg oral tablet, extended release 500 mg = 1 tab, Oral, BID, # 20 tab, 0 Refill(s), Pharmacy: [place], [place], 157, cm, 11/18/21 23:46:00 CDT, Height/Length Dosing, 73, kg, 11/18/21 23:46:00 CDT, Weight Dosing Start Date: 11/19/21 Stop Date: 11/29/21 Status: Ordered Fioricet with Codeine 50 mg-300 mg-40 mg-30 mg oral capsule 1 cap, Oral, every 4 hr, PRN as needed, # 12 cap, 0 Refill(s), Pharmacy: [place], [place], 157.48, cm, 11/29/21 8:04:00 CDT, Height/Length [...] BID, # 180 tab, 3 Refill(s), Pharmacy: [place], [place], 157, cm, 10/22/20 21:26:00 CDT, [...] nausea/vomiting, # 12 tab, 0 Refill(s), Pharmacy: [place], [place], [place], cm, 11/04/21 20:02:00 CDT, Height/Length [...] nausea/vomiting, # 20 tab, 0 Refill(s), Pharmacy: [facility] [place], [place], 157, cm, 09/29/21 23:03:00 CDT, Height/Length [...] Oral [35.8-37.3 Deg C] 36.9 Deg C (12/17/21 5:38 AM) Peripheral Pulse Rate [60-100 bpm] 82 bp m (12/17/21 5:38 AM) Respiratory Rate [12-24 br/min] 18 br/mi n (12/17/21 5:38 AM) Blood Pressure [90-140/60-90 mmHg] 126/8 0mmHg (12/17/21 5:38 AM) Weight Dosing 73.00 kg (12/17/21 5:59 AM) Weight Estimated 73.00 kg (12/17/21 5:38 AM) Height/Length Dosing 157.000 cm (12/17/21 5:59 AM) Height/Length Estimated 157.000 cm (12/17/21 5:38 AM) Social History Social History Type Response Tobacco Current some day tob acco user Tobacco Use:. Sex Hospital Discharge Instructions Patient Education 12/17/2021 06:34:05 Earache, Adult Earache, Adult An earache, or [...] at home: Medicines ??? Take or apply wfsl-bkq-kmxbgmy and prescription medicines only as told by [...] provider. Document Revised: 10/12/2019 Document Reviewed: 10/12/2019 [employer] Patient Education ?? 2021 [employer]. 12/17/2021 06:34:02 Chronic Migraine Headache Chronic Migraine Headache A [...] these instructions at home: Medicines ??? Take tkud-xlt-rqdpdjl and prescription medicines only as told by [...] Headache and Migraine Patients (CHAMP): headachemigraine.org ??? [place] Migraine Foundation: americanmigrainefoundation.org ??? National Headache Foundation: [...] provider. Document Revised: 04/22/2020 Document Reviewed: 04/22/2020 [employer] Patient Education ?? 2021 [employer]. Follow Up Care 12/17/2021 05:38:09 With:Follow up with specialist Address: When:5 to 7 days Comments:Follow-up with your ear nose and throat doctor. With:Hermes Ramirez MD Address: [address] [place] [address], [address] [place] [id number]- When:1 week Comments:If you have fever, persistent vomiting,??weakness or numbness,??or new concerning symptoms, return to the emergency department. Patient Care team information Personnel Name: Hermes Ramirez MD Address: Address: [address] [place] [address], [address] [place] [id number]
--- OUTSIDE RECORDS SUMMARY | 2024-03-20 11:44 | XMS_ITS | Continuity of Care Document ---
Author Organization [facility] Address [address] [place] [address] Care Team Providers Care Body Painter Name Role Phone Hermes Ramirez Chris Primary Care Physician Encounter [facility] [id number] Date(s): 10/04/21 - 10/04/21 [place] [address] [place] [address]- [place] Discharge Disposition: Home or [...] Moderate Active NSAIDs Severe Active Functional Status 10/04/21 Recent Travel History No recent travel Other [...] 0 Refill(s), Pharmacy: [facility] - [place], [place], 73, cm, 09/13/21 23:53:00 CDT, Height/Length [...] wheezing, # 6.7 g, 0 Refill(s), Pharmacy: [place], [place], 73, cm, 09/13/21 23:53:00 CDT, Height/Length [...] TID, # 21 cap, 0 Refill(s), Pharmacy: [place], [place], 157, cm, 09/27/21 22:29:00 CDT, Height/Length Dosing, 73, kg, 09/27/21 22:29:00 CDT, Weight Dosing Start Date: 09/27/21 Stop Date: 10/04/21 Status: Ordered codeine-guaifenesin 7.5 mg-225 mg/5 mL oral liquid 7.5 mL, Oral, every 6 hr, PRN as needed for cough, # 120 mL, 0 Refill(s), Pharmacy: [place], [place], 73, cm, 09/13/21 23:53:00 CDT, Height/Length Dosing, 157, kg, 09/13/21 23:53:00 CDT, Weight Dosing Start Date: 09/14/21 Status: Ordered Diflucan 150 mg oral tablet 150 mg = 1 tab, Oral, Once, # 1 tab, 0 Refill(s), Pharmacy: [place], [place], 73, cm,09/13/21 23:53:00 CDT, Height/Length Dosing, [...] BID, # 180 tab, 3 Refill(s), Pharmacy: [place], [place], [address], cm, 10/22/20 21:26:00 CDT, Height/Length [...] nausea/vomiting, # 20 tab, 0 Refill(s), Pharmacy: [place], [place], [address], cm, 09/29/21 23:03:00 CDT, Height/Length [...] Oral [35.8-37.3 Deg C] 37.1 Deg C (10/04/21 4:43 PM) Peripheral Pulse Rate [60-100 bpm] 88 bpm (10/04/21 6:56 PM) 87 bpm (10/04/21 6:20 PM) 91 bpm (10/04/21 4:43 PM) Respiratory Rate [12-24 br/min] 18 br/min (10/04/21 6:56 PM) 16 br/min (10/04/21 6:20 PM) 20 br/min (10/04/21 4:43 PM) Blood Pressure [90-140/60-90 mmHg] 142/84mmHg *HI* (10/04/21 6:56 PM) 148/89mmHg *HI* (10/04/21 6:20 PM) 138/91mmHg (10/04/21 4:43 PM) Weight Dosing 72.57 kg (10/04/21 5:57 PM) Weight Estimated 72.57 kg (10/04/21 4:43 PM) Height/Length Dosing 157.480 cm (10/04/21 5:57 PM) Height/Length Estimated 157.480 cm (10/04/21 4:43 PM) Social History Social History Type Response Smoking Status 5-9 cigarettes (betw een 1/4 to 1/2 pack)/day in last 30 days entered on: 05/12/21 [facility] Hospital Discharge Instructions Patient Education 10/04/2021 18:12:25 Migraine Headache Migraine Headache A migraine headache [...] these instructions at home: Medicines ??? Take dnhv-klo-xmkewtq and prescription medicines only as told by your health care provider. ??? Ask your health care provider if the medicine prescribed to you: ??? Requires you to avoid driving or using heavy machinery. ??? Can cause constipation. You may need to take these actions to prevent or treat constipation: ??? Drink enough fluid to keep your urine pale yellow. ??? Take ujpi-gwh-uehrdbb or prescription medicines. ??? Eat foods that [...] provider. Document Revised: 06/28/2019 Document Reviewed: 04/18/2019 [employer] Patient Education ?? 2020 [employer] 10/04/2021 18:10:32 Chronic Migraine Headache Chronic Migraine Headache A [...] these instructions at home: Medicines ??? Take rtkx-gby-cqtblde and prescription medicines only as told by [...] Headache and Migraine Patients (CHAMP): headachemigraine.org ??? [place] Migraine Foundation: americanmigrainefoundation.org ??? National Headache Foundation: [...] Document Reviewed: 04/22/2020 [employer] Patient Education ?? 2020 [employer] Follow Up Care 10/04/2021 16:43:01 With:Hermes Ramirez MD Address: [address] [place] [address], [address] [place] [address]- When:24 Hours Care Team Personnel Name: Hermes Ramirez MD Address: [address] [place] [address], [address] [place] [address]-
--- OUTSIDE RECORDS SUMMARY | 2024-03-20 11:44 | XMS_ITS | Continuity of Care Document ---
Author Organization [facility] Address [address] [place] [address] Care Team Providers Care Band Presser Name Role Phone Hermes Ramirez Primary Care Physician Encounter [facility]NOFRE [facility] [id number] Date(s): 05/08/21 - 05/08/[address] [address] [place] Encounter Diagnosis Headache, chronic migraine without aura(Discharge Diagnosis) - 05/08/21 Discharge Disposition: Home or Self Care Attending Physician: Zack Byrnes MD Admitting Physician: Zack Byrnes MD Allergies, Adverse Reactions, Alerts Substance Reaction Severity Status gentamicin Moderate Active erythromycin Medication interaction Activ e aspirin Medication interaction Activ e Toradol Kidney failure as a complication of care Active NSAIDs Severe Active Assessment and Plan Future Appointments Functional Status 05/08/21 Other exposure to Infectious Disease Non e [...] BID, # 180 tab, 3 Refill(s), Pharmacy: [place], [place], [address], cm, 10/22/20 21:26:00 CDT, Height/Length [...] Oral [35.8-37.3 Deg C] 37.2 Deg C (05/08/21 5:29 AM) Peripheral Pulse Rate [60-100 bpm] 108 b pm *HI* (05/08/21 5:29 AM) Respiratory Rate [12-24 br/min] 20 br/mi n (05/08/21 5:29 AM) Blood Pressure [90-140/60-90 mmHg] 165/1 03mmHg *HI* (05/08/21 5:29 AM) Weight Dosing 77.00 kg (05/08/21 5:41 AM) Weight Estimated 77.00 kg (05/08/21 5:29 AM) Height/Length Dosing 157.000 cm (05/08/21 5:41 AM) Body Mass Index Estimated 31 (05/08/21 5:29 AM) Height/Length Estimated 157.000 cm (05/08/21 5:29 AM) Social History Social History Type Response Smoking Status 5-9 cigarettes (betw een 1/4 to 1/2 pack)/day in last 30 days entered on: 04/12/21 Sex Hospital Discharge Instructions Patient Education 05/08/2021 05:55:22 Migraine Headache, Izid-kd-Ovtm Migraine Headache A migraine headache is a [...] these instructions at home: Medicines ??? Take rexi-lfj-mdnjxpt and prescription medicines only as told by your doctor. ??? Ask your doctor if the medicine prescribed to you: ??? Requires you to avoid driving or using heavy machinery. ??? Can cause trouble pooping (constipation). You may need to take these steps to prevent or treat trouble pooping: ??? Drink enough fluid to keep your pee (urine) pale yellow. ??? Take pwvl-fdn-hckhqks or prescription medicines. ??? Eat foods that [...] provider. Document Revised: 06/28/2019 Document Reviewed: 04/18/2019 [employer] Patient Education ?? 2020 [employer]. Follow Up Care 05/08/2021 05:37:21 With:Hermes Ramirez MD Address: [address] [place] [address], [address] [place] [address]- When:1 week Comments:Continue other home medications.?? Follow-up with PCP follow-up with neurologist.?? Return to ED ifsymptoms worsen
--- OUTSIDE RECORDS SUMMARY | 2024-03-20 11:44 | XMS_ITS | Continuity of Care Document ---
Author Organization [facility] Address [address] [place] [address]- Care Team Providers Care Corrosion Control Engineer Name Role Phone Hermes Ramirez Primary Care Physician Encounter [facility]NOFRE [facility] [id number] Date(s): 04/08/20 - 04/08/20 [facility] [place] [address] [place] [address]- Encounter Diagnosis Edema(Discharge Diagnosis) - 04/08/20 Yellow eyes(Discharge Diagnosis) - 04/08/20 Chronic kidney disease, stage IV (severe)(Discharge Diagnosis) - 04/08/20 Liver transplant disorder(Discharge Diagnosis) - 04/08/20 Numbness and tingling of right arm(Discharge Diagnosis) - 04/08/20 Heart murmur(Discharge Diagnosis) - 04/08/20 Discharge Disposition: Home or Self Care Attending Physician: Jessee Jones NP Allergies, Adverse Reactions, Alerts Substance Reaction Severity Status erythromycin Medication interaction Activ e aspirin Medication interaction Activ e Toradol Kidney failure as a complication of care Active Assessment and Plan Future Scheduled Tests Laboratory* COVID-19 Testing Send Out - [place] 10/25/19 * Amylase Level 04/08/20 * CBC w/ Diff 04/08/20 * Comprehensive Metabolic Panel 04/08/20 * Lipase Level 04/08/20 * PT/ INR 04/08/20 * BNP 04/08/20 Functional Status 04/08/20 Other exposure to Infectious Disease Non e Immunizations Given and Recorded Vaccine Date Status Refusal Reason hepatitis B adult vaccine 11/10/17 Recorded hepatitis B adult vaccine 10/09/17 Recorded hepatitis A adult vaccine 10/09/17 Recorded tetanus/diphth/pertuss (Tdap) adult/adol 05/10/17 Recorded tetanus/diphth/pertuss (Tdap) adult/adol 03/20/17 Recorded tetanus/diphth/pertuss (Tdap) adult/adol 05/25/12 Recorded Medications metoprolol succinate 50 mg oral tablet, extended release 50 mg = 1 tab, Oral, Daily, # 30 tab, 0 Refill(s) Start Date: 12/30/19 Status: Ordered Prograf 2 mg =, Oral, every 12 hr, 0 Refill(s) Start Date: 12/18/18 Status: Ordered promethazine 25 mg oral tablet 25 mg =, Oral, every 6 hr, PRN nausea/vomiting, # 20 tab, 0 Refill(s), [id number] Start Date: 04/28/19 Stop Date: 05/03/19 Status: [...] [36.6-37.9 Deg C] 3 6.7 Deg C (04/08/20 6:02 PM) Peripheral Pulse Rate [60-100 bpm] 82 bp m (04/08/20 6:02 PM) Respiratory Rate [14-20 br/min] 20 br/mi n (04/08/20 6:02 PM) Blood Pressure [90-140/60-90 mmHg] 118/7 4mmHg (04/08/20 6:02 PM) Weight 89.27 kg (04/08/20 6:02 PM) Weight Measured (lbs) 196 lb (04/08/20 6:02 PM) Height 157 cm (04/08/20 6:02 PM) Height/Length Measured (inches) 62 inch (04/08/20 6:02 PM) BSA Measured 1.97 m2 (04/08/20 6:02 PM) Body Mass Index Measured 36.22 kg/m2 (04/08/20 6:02 PM) Social History Social History Type Response Smoking Status 4 or less cigarettes (less than 1/4 pack)/day in last 30 days entered on: 04/08/20 Sex Hospital Discharge Instructions Follow Up Care 04/08/2020 18:01:52 With:Hermes Ramirez MD Address: [address] [place] [address] [place] [address]- When:Within 1 Day(s)
--- OUTSIDE RECORDS SUMMARY | 2024-03-20 11:44 | XMS_ITS | Continuity of Care Document ---
Author Organization [facility] Address [address] [place] [address] Care Team Providers Care Babcock Tester Name Role Phone Hermes Ramirez Primary Care Physician Encounter ONOFRE [facility] [id number] Date(s): 06/24/22 - 06/24/[address] [address] Encounter Diagnosis Headache, migraine, intractable(Discharge Diagnosis) - 06/24/22 Pain due to dental caries(Discharge Diagnosis) - 06/24/22 Discharge Disposition: Home or Self Care Attending [...] wheezing, # 6.7 g, 0 Refill(s), Pharmacy: [place], [place], 73, cm, 09/13/21 23:53:00 CDT, Height/Length [...] needed, # 12 cap, 0 Refill(s), Pharmacy: [place], [place], 157, cm, 11/04/21 20:02:00 CDT, Height/Length Dosing, 73, kg, 11/04/21 20:02:00 CDT, Weight Dosing Start Date: 11/04/21 Status: Ordered doxycycline hyclate 100 mg oral capsule 100 mg = 1 cap, Oral, BID, X 10 days, # 20 cap, 0 Refill(s), 06/28/22 16:36:00 CDT, [id number], 157.[address], cm, 06/18/22 14:40:00 CDT, Height/Length Dosing, [...] BID, # 180 tab, 3 Refill(s), Pharmacy: [facility], 157.48, cm, 02/07/22 18:45:00CST, Height/Length Dosing, 72.57, kg, 02/07/22 18:45:00 CAFE MANAGER, Weight Dosing Start Date: 02/13/22 Status: Ordered morphine 2 mg/mL preservative-free injectable solution 2 mg = 1 mL, IM, Once, 0 Refill(s) Start Date: 05/05/22 Status: Ordered oseltamivir 30 mg oral capsule 30 mg = 1 cap, Oral, BID, # 10 cap, 0 Refill(s), Pharmacy: [facility] - [place], [place], [address], cm, 03/16/22 18:01:00 CAFE MANAGER, Height/Length Dosing, 77.11, kg, 03/16/22 18:01:00 CAFE MANAGER, Weight Dosing Start Date: 03/16/22 Status: Ordered Pepcid 20 mg oral tablet 20 mg = 1 tab, Oral, BID, 0 Refill(s) Start Date: 09/29/20 Status: Ordered Phenergan 25 mg oral tablet 25 mg = 1 tab, Oral, every 6 hr, PRN as needed for nausea/vomiting, # 20 tab, 0 Refill(s), Pharmacy: [place], [place], [address], cm, 09/29/21 23:03:00 CDT, Height/Length [...] Oral [35.8-37.3 Deg C] 36.7 Deg C (06/24/22 10:57 AM) 36.7 Deg C (06/24/22 9:59 AM) Peripheral Pulse Rate [60-100 bpm] 72 bp m (06/24/22 10:57 AM) 80 bpm (06/24/22 9:59 AM) Respiratory Rate [12-24 br/min] 20 br/mi n (06/24/22 9:59 AM) Blood Pressure [90-140/60-90 mmHg] 154/8 2mmHg *HI* (06/24/22 10:57 AM) 149/94mmHg *HI* (06/24/22 9:59 AM) Weight 77.11 kg (06/24/22 9:59 AM) Weight Dosing 77.11 kg (06/24/22 10:27 AM) Height 157.480 cm (06/24/22 9:59 AM) Height/Length Dosing 157.480 cm (06/24/22 10:27 AM) Body Mass Index 31.000 kg/m2 (06/24/22 9:59 AM) Social History Social History Type Response Tobacco Current everyday tob acco user Tobacco Use:. Sex Hospital Discharge Instructions Patient Education 06/24/2022 10:09:02 Dental Caries, Adult, Tcnv-zt-Mnkj Dental Caries, Adult Dental caries are spots of decay (cavities) in teeth. They are in the outer layer of your tooth (enamel). Treat them as soon as you can. If they are not treated, they can spread decay and lead to painful infection. What are the causes? This condition is caused by acid that is produced when bacteria in your mouth break down sugary foods and liquids. What increases the risk? This condition is more likely to develop in people who: ??? Drink a lot of sugary liquids. ??? Eat a lot of sweets and carbohydrates. ??? Drink water that does not have fluoride. ??? Do not clean their teeth regularly. ??? Take medicines that decrease saliva. What are the signs or symptoms? Symptoms of this condition include: ??? White, brown, or black spots on the teeth. ??? Pain as the decay goes deeper into the tooth. ??? Swelling or bleeding in the gums. How is this treated? This condition is treated with a procedure to remove decay and to restore the tooth. Follow these instructions at home: ??? Take good care of your mouth and teeth. This keeps them healthy. ??? [place] your teeth 2 times a day. Use toothpaste with fluoride in it. ??? Floss your teeth once a day. ??? If your dentist prescribed an antibiotic medicine, take it as told. Do not stop taking the antibiotic even if your condition gets better. ??? Keep all follow-up visits as told by your dentist. This is important. This includes all cleanings. How is this prevented? To prevent dental caries: ??? [place] your teeth every morning and night. Use fluoride toothpaste. ??? Floss your teeth once a day. ??? Get regular dental cleanings. ??? If told by your dentist: ??? Wash your mouth with prescription mouthwash (chlorhexidine). ??? Put topical fluoride on your teeth. ??? Drink water with fluoride in it. ??? Drink water instead of sugary drinks. ??? Eat healthy meals and snacks. ??? Have fluoride treatments in the dentist's office and sealants put on your teeth, if told by your dentist. Contact a doctor if: ??? You have symptoms of tooth decay. Summary ??? Dental caries are spots of decay (cavities) in teeth. It is important to treat this as soon as you see them. ??? This condition is caused by an acid that comes when sugar breaks down in your mouth. ??? To prevent this condition, brush your teeth often and have regular dental cleanings. ??? Take an antibiotic to treat an infection, if told by your dentist. Do not stop taking the antibiotic even if your condition gets better. ??? Have regular dental cleanings and keep all follow-up visits. This information is not intended to replace advice given to you by your health care provider. Make sure you discuss any questions you have with your health care provider. Document Revised: 02/21/2020 Document Reviewed: 02/21/2020 [employer] Patient Education ?? 2021 [employer]. Follow Up Care 06/24/2022 09:59:16 With:Follow up with specialist Address: When:3 to 5 days Comments:See a dentist Physician Emergency department Note * Felicia Roach MD: PERFORM Event Display: ED Note Physician Authored Date: [id number] MISHA JACKSON :1980 Age:41 years Sex:Female Visit Date:06/24/2022 Primary Care Physician: Hermes Ramirez MD Basic Information Time Seen: Felicia Roach MD / 06/24/2022 10:01 History Of Present Illness: 41-year-old female??with frequent ER visits for intractable migraines and chronic neck pain,??history of liver transplant twice,??history of renal transplant once,??under the care of??transplant teamin [place],??chronic neck and back pain,??frequent ear infections,??stage IV chronic kidney disease, ??chronic thrombocytopenia presents to the ED with a recurrent migraine at the same time??with a toothache.?? Last seen in the ED 6 days ago for similar headache.?? Presents to the ED at least 4 times a months??or more??for her recurrent headaches. Review of Systems: Constitutional:?No??fevers,?No??chills,?No??sweats Eye:?No??recent visual problems ENT:?No??ear pain,?No??nasal congestion,?No??sore throat Respiratory:?No??shortness of breath,?No??cough Cardiovascular:?No??Chest pain,?No??palpitations,?No??syncope Gastrointestinal:?Nonausea,?No??vomiting,?No??diarrhea Genitourinary:?No??hematuria Clemente/Lymph:?No??bruising tendency,?No??swollen lymph glands Endocrine:?No??excessive thirst,??No??excessive hunger Musculoskeletal:??No??back pain,??No??neck pain,??No??joint pain,??No??muscle pain,??No??decreased range of motion Integumentary:?No??rash,?No??pruritus,?No??abrasions Neurologic: Alert & oriented X 4 Psychiatric:?No??anxiety,?No??depression Physical Exam General: Alert and oriented, well nourished,?No??acute distress??blood pressure 149/94. ??Sats 99% Eye: PERRL, EOMI,?Normal??conjunctiva HENT: Normocephalic, clear tympanic membranes,?Normal?? hearing, moist oral mucosa,?No??scleral icterus,?No??sinus tenderness.?? Dental caries right upper molar. ??No facial swelling Neck: Supple, non-tender,?No??carotid bruits,?No??JVD,?No??lymphadenopathy Lungs:??Clear to auscultation?? Respiration:??Non-Labored Heart:?Normal?? rate,?Regular??rhythm,?No??murmur,?No??gallop,?No??edema Breast:?No??lumps,?No??bumps,?No??scars,?Normal?? nipples Abdomen: Soft, non-tender, non-distended,?Normal?? bowel sounds,?No??masses Musculoskeletal:?Normal?? range of motion and strength,?No??tenderness,?No??swelling Skin: Skin is warm, dry and pink,?No??rashes,?No??lesions Neurologic: Awake, alert and oriented X4, CN II-XII intact Psychiatric: Cooperative, appropriate mood and affect Procedure No Qualifying Data Assessment/Plan 1.??Headache, migraine, intractable??G43.919 Patient given her usual morphine 2 mg IM,??Benadryl 50 mg IM and Phenergan 25 mg IM 2.??Pain due to dental caries??K02.9 Patient is already on doxycycline I advised her to see a dentist for??dental??evaluation management Orders: Benadryl, 50 mg = 1 mL, IM, Injection, Once, First Dose: 06/24/22 10:07:00 CDT, Stop Date: 06/24/2309:07:00 CDT, Physician Stop morphine, 2 mg = 0.5 mL, IM, Injection, Once, First Dose: 06/24/22 10:07:00 CDT, Stop Date: 06/24/22 10:07:00 CDT, Physician Stop Phenergan, 25 mg = 1 mL, IM, Injection, Once, First Dose: 06/24/22 10:07:00 CDT, Stop Date: 06/24/22 10:07:00 CDT, Physician Stop Patient Discharge Condition Stable Discharge Disposition Discharge to home Patient Education Dental Caries, Adult, Ghak-vu-Jblv Follow Up With When Contact Information Follow up with specialist Within 3 to 5 days Additional Instructions: See a dentist Medication Reconciliation Unchanged albuterol (albuterol 90 mcg/inh [...] 4 hours as needed. Refills: 0. ?? doxycycline (doxycycline hyclate 100 mg oral capsule)1 Capsules Oral (given by mouth) 2 times a dayfor 10 Days. Refills: 0. ?? famotidine (Pepcid 20 mg [...] Use:. Family History Cancer: Mother. Attending Attestation Paul Electronically Signed on 06/24/22 10:09 AM Felicia Roach MD Patient Care team information Care Team Personnel Name: Jessee Jones LARRY CAR OPERATOR Position: Physician Member Role: Nurse Practitioner Address: Address: [address] [place] [address], [address] [place] [address]- Name: Latoya Marquez LARRY CAR OPERATOR Position: Physician Member Role: Nurse Practitioner Address: Address: [address] [place] [address]- Name: Leonila Gonzalez LARRY CAR OPERATOR Position: Physician Member Role: Nurse Practitioner Address: Address: [address] [place] [address]- Name: Beth Brandt LARRY CAR OPERATOR Position: Physician Member Role: Nurse Practitioner Address: Address: [address] [place] [address] Name: Hermes Ramirez MD Position: Physician Member Role: Informed Provider Address: Address: [address] [facility], [address] [place] [address]- Name: Pillo Moe LARRY CAR OPERATOR Position: Physician Member Role: Nurse Practitioner Address: Address: [address] [place] [address], [address] [facility] Name: Felicia Roach MD Position: Physician Member Role: Admitting Physician Address: Address: [address] [place] [address]- Name: Gia Underwood RN Position: Nurse Member Role: ED Nurse Care Team Related Persons Name: STACIA JONES Address: Home [address] [place], [place] [id number] Name: ROBYN JAMA Address: Home
--- OUTSIDE RECORDS SUMMARY | 2024-03-20 11:45 | XMS_ITS | Continuity of Care Document ---
Author Organization [facility] Address [address] [place] [address] Care Team Providers Care Mattress Finisher Name Role Phone Sophiejenna Hermes Perez Primary Care Physician [phone] Encounter ONOFRE MCGRAW [id number] Date(s): 04/28/23 - 04/28/[address] [address]- [place] Encounter Diagnosis Migraine headache(Discharge Diagnosis) - 04/28/23 Discharge Disposition: Home or Self Care Attending [...] from: Title:ED Provider Note Author:Jesus Khan MD Date:04/28/23 Assessment/Plan 1.??Migraine headache??G43.909 Orders: Benadryl, 50 mg = 1 mL, Intramuscular, Injection, Once, First Dose: 04/28/23 17:00:00 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 Instructed to follow-up with??PCP. ??Also instructed to follow-up with??neurologist.?? States has an appointment??on 05/10/2023. Patient Discharge Condition Stable Discharge Disposition Discharge home Patient Education Chronic Migraine Headache, Freh-rj-Xfhw Migraine Headache, Dvph-av-Ukde Follow Up With When Contact Information Hermes Ramirez MD Within 1 week [address] [place] [address]- ?? Additional Instructions: Also instructed her to follow-up with??neurologist.?? (States has appointment??on 05/10/2023). ??Continue other home medications.?? Return to ED if symptoms worsen. Future Appointments Future Scheduled Tests Laboratory* Urinalysis [...] Daily, # 30 tab, 11 Refill(s), Pharmacy: [place], [place], 157.48, cm, 01/04/23 15:03:00 CDT, Height/Length [...] BID, # 60 cap, 11 Refill(s), Pharmacy: [place], [place], 157.48, cm, 01/04/23 15:03:00 CDT, Height/Length [...] [35.8-37.3 Deg C] 37 De g C (04/28/23 3:52 PM) Peripheral Pulse Rate [60-100 bpm] 84 bp m (04/28/23 3:52 PM) Respiratory Rate [12-24 br/min] 20 br/mi n (04/28/23 3:52 PM) Blood Pressure [90-140/60-90 mmHg] 159/9 0mmHg *HI* (04/28/23 3:52 PM) Mean Arterial Pressure, Cuff [70-110 mmH g] 113 mmHg *HI* (04/28/23 3:52 PM) Weight 81.65 kg (04/28/23 3:52 PM) Weight Dosing 81.650 kg (04/28/23 3:52 PM) Height 157.48 cm (04/28/23 3:52 PM) Body Mass Index 32.92 kg/m2 (04/28/23 3:52 PM) Social History Social History Type Response Tobacco Current everyday tob acco user Tobacco Use:. 1 Sex 1Pt states that she smokes half a pack a day. Hospital Discharge Instructions Patient Education 04/28/2023 16:20:50 Chronic Migraine Headache, Utvq-nf-Ivqe Chronic Migraine Headache A migraine headache is [...] these instructions at home: Medicines ??? Take nvan-fjd-wrwuwap and prescription medicines only as told by [...] provider. Document Revised: 04/22/2020 Document Reviewed: 04/22/2020 [employer] Patient Education ?? 2022 [employer] 04/28/2023 16:20:48 Migraine Headache, Bzqg-zb-Eyji Migraine Headache A migraine headache is a [...] these instructions at home: Medicines ??? Take gnqs-fvq-uzdmmzr and prescription medicines only as told by your doctor. ??? Ask your doctor if the medicine prescribed to you: ??? Requires you to avoid driving or using heavy machinery. ??? Can cause trouble pooping (constipation). You may need to take these steps to prevent or treat trouble pooping: ??? Drink enough fluid to keep your pee (urine) pale yellow. ??? Take rffs-rxa-dddnbxj or prescription medicines. ??? Eat foods that [...] provider. Document Revised: 06/28/2019 Document Reviewed: 04/18/2019 [employer] Patient Education ?? 2022 [employer]. Follow Up Care 04/28/2023 15:52:54 With:Hermes Ramirez MD Address: [address] [place] [address], [address] [place] [id number]- When:1 week Comments:Also instructed her to follow-up with??neurologist.?? (States has appointment??on 05/10/2023). ??Continue other home medications.?? Return to ED if symptoms worsen. Physician Emergency department Note * Jesus Khan MD: PERFORM Event Display: ED Note Physician Authored Date: [id number] MISHA JACKSON :1980 Age:42 years Sex:Female Visit Date:04/28/2023 Primary Care Physician: Hermes Ramirez MD Basic Information Time Seen: Jesus Khan MD / 04/28/2023 15:57 Chief Complaint c/o migraine since this morning. ??last dose of tylenol was at 1200. 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 ??Has history of chronic recurrent migraine headaches.?? Comes to the ED??often??because recurrent migraines??and??almost??always requesting??narcotic??shots (morphine).?? Patient complains of extreme nausea??started this morning.?? Also headache??started this morning??mostly on her right side.?? States has not seen her neurologist for??few months.?? Mentions she has an appointment??with neurology on 04/20/2023.?? Patient requested shot of morphine;??told her I was not going to give her any??morphine.;?? Told her??I will give her Phenergan and Benadryl.?? Because of her history of??liver transplant and kidney disease cannot give her any??Toradol??or any other NSAIDs. Review of Systems: Constitutional:?No??fevers,?No??chills,?No??sweats;??right-sided headache??(migraine). Eye:?No??recent visual problems ENT:?No??ear pain,?No??nasal congestion,?No??sore throat Respiratory:?No??shortness of breath,?No??cough Cardiovascular:?No??Chest pain,?No??palpitations,?No??syncope Gastrointestinal:?Positive fornausea,?No??vomiting,?No??diarrhea Genitourinary:?No??hematuria Clemente/Lymph:?No??bruising tendency,?No??swollen lymph glands Endocrine:?No??excessive thirst,??No??excessive hunger Musculoskeletal:??No??back pain,??No??neck pain,??No??joint pain,??No??muscle pain,??No??decreased range of motion Integumentary:?No??rash,?No??pruritus,?No??abrasions Neurologic: Alert & oriented X 4 Psychiatric:?No??anxiety,?No??depression Physical Exam Vitals & Measurements T:??37?C ??(Oral)?? HR:??84??(Peripheral)?? RR:??20?? BP:??159/90?? SpO2:??97%?? HT:??157.48??cm?? WT:??81.65??kg?? BMI:??32.92?? Pain Score:??7?? O2 Therapy:??Room air?? General: Alert [...] 25 mg IM.?? Benadryl 50 mg IM. 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 Instructed to follow-up with??PCP. ??Also instructed to follow-up with??neurologist.?? States has an appointment??on 05/10/2023. Patient Discharge Condition Stable Discharge Disposition Discharge home Patient Education Chronic Migraine Headache, Exlr-ta-Avbh Migraine Headache, Qjsn-gr-Imwg Follow Up With When Contact Information Hermes Ramirez MD Within [address] [place] [address] [address] [place] [address]- Additional Instructions: Also instructed her to follow-up with??neurologist.?? (States has appointment??on 05/10/2023). ??Continue other home medications.?? Return to ED if [...] Liver transplantation (05/08/2020)???Mammogram (2020)??? delivery???cyst removal from [facility]???liver transplant Allergies NSAIDs Toradol??(Kidney failure as a complication of care) aspirin??(Medication interaction) azithromycin??(Unknown) codeine??(Unknown, Itching) gentamicin morphine??(redness, Itching) erythromycin??(Medication interaction) Social History Alcohol Never Electronic Cigarette/Vaping Electronic Cigarette Use: Never. Substance Use Never Tobacco Current everyday tobacco user Tobacco Use:.- Comments: Pt states that she smokes half a pack a day. Family History Cancer: Mother. Attending Attestation Follow-up with PCP. ??Follow-up with neurologist. Electronically Signed on 04/28/23 04:21 PM Jesus Khan MD Patient Care team information Care Team Personnel Name: Jessee Jones BINDER TECHNICIAN Position: Physician Member Role: Nurse Practitioner Address: Address: [address] [place] [address], [address] Name: Latoya Marquez BINDER TECHNICIAN Position: Physician Member Role: Nurse Practitioner Address: Address: [place] [address]- Name: Leonila Gonzalez NP Position: Physician Member Role: Nurse Practitioner Address: Address: [address] [place] [address]- Name: Beth Brandt BINDER TECHNICIAN Position: Physician Member Role: Nurse Practitioner Address: Address: [address] [place] [address] Name: Hermes Ramirez MD Position: Physician Member Role: Informed Provider Address: Address: [facility], [address] Name: Pillo Moe BINDER TECHNICIAN Position: Physician Member Role: Nurse Practitioner Address: Address: [address] [place] [address], [address] [facility] Care Team Related Persons Name: STACIA JONES Address: Home [address], [place] [id number] Name: ROBYN JAMA
--- OUTSIDE RECORDS SUMMARY | 2024-03-20 11:45 | XMS_ITS | Continuity of Care Document ---
Author Organization [facility] Address [address] [place] [address] Care Team Providers Care Emergency Department Director Name Role Phone Hermes Ramirez Primary Care Physician Encounter ONOFRE MCGRAW [id number] Date(s): 12/10/22 - 12/10/[address] [address] [place] Encounter Diagnosis Acute URI(Discharge Diagnosis) - 12/10/22 Acute bronchitis(Discharge Diagnosis) - 12/10/22 Headache(Discharge Diagnosis) - 12/10/22 Discharge Disposition: Home or Self Care Attending [...] Daily, # 30 tab, 0 Refill(s), Pharmacy: [place], [place], 157, cm, 09/10/22 15:23:00 CDT, Height/Length Dosing, 86.1, kg, 09/10/22 15:23:00 CDT, Weight Dosing Start Date: 10/11/22 Status: Ordered amoxicillin 500 mg oral capsule 1,000 mg = 2 cap, Oral, BID, X 7 days, # 28 cap, 0 Refill(s), 12/17/22 1:01:00 AM CDT, Pharmacy: [place], [place], 157, cm, 12/10/22 0:56:00 CDT, Height/Length [...] BID, # 60 cap, 0 Refill(s), Pharmacy: [place], [place], 157, cm, 09/10/22 15:23:00 CDT, Height/Length [...] 0 Refill(s), 12/17/22 1:35:00 AM CDT, Pharmacy: [facility] [place], [place], 157, cm, 12/10/22 0:56:00 CDT, Height/Length [...] 2 3 Temperature Oral [35.8-37.3 Deg C] 37 Deg C (12/10/22 12:36 AM) Peripheral Pulse Rate [60-100 bpm] 98 bpm (12/10/22 12:36 AM) Heart Rate Monitored [60-100 bpm] 93 bpm (12/10/22 1:10 AM) 93 bpm (12/10/22 1:05 AM) Respiratory Rate [12-24 br/min] 20 br/min (12/10/22 1:10 AM) 20 br/min (12/10/22 1:05 AM) 20 br/min (12/10/22 12:36 AM) Blood Pressure [90-140/60-90 mmHg] 162/93mmHg *HI* (12/10/22 12:36 AM) Weight 81.00 kg (12/10/22 12:36 AM) Weight Dosing 81.00 kg (12/10/22 12:56 AM) Height 157.000 cm (12/10/22 12:36 AM) Height/Length Dosing 157.000 cm (12/10/22 12:56 AM) Body Mass Index 33.000 kg/m2 (12/10/22 12:36 AM) Social History Social History Type Response Tobacco Current everyday tob acco user Tobacco Use:. Sex Hospital Discharge Instructions Patient Education 12/10/2022 01:02:30 Acute Bronchitis, Adult Acute Bronchitis, Adult Acute bronchitis is sudden inflammation of the main airways (bronchi) that come off the windpipe (trachea) in the lungs. The swelling causes the airways to get smaller and make more mucus than normal. This can make it hard to breathe and can cause coughing or noisy breathing (wheezing). Acute bronchitis may last several weeks. The cough may last longer. Allergies, asthma, and exposureto smoke may make the condition worse. What are the causes? This condition can be caused by germs and by substances that irritate the lungs, including: ??? Cold and flu viruses. The most common cause of this condition is the virus that causes the common cold. ??? Bacteria. This is less common. ??? Breathing in substances that irritate the lungs, including: ??? Smoke from cigarettes and other forms of tobacco. ??? Dust and pollen. ??? Fumes from household cleaning products, gases, or burned fuel. ??? Indoor or outdoor air pollution. What increases the risk? The following factors may make you more likely to develop this condition: ??? A weak body's defense system, also called the immune system. ??? A condition that affects your lungs and breathing, such as asthma. What are the signs or symptoms? Common symptoms of this condition include: ??? Coughing. This may bring up clear, yellow, or green mucus from your lungs (sputum). ??? Wheezing. ??? Runny or stuffy nose. ??? Having too much mucus in your lungs (chest congestion). ??? Shortness of breath. ??? Aches and pains, including sore throat or chest. How is this diagnosed? This condition is usually diagnosed based on: ??? Your symptoms and medical history. ??? A physical exam. You may also have other tests, including tests to rule out other conditions, such as pneumonia. These tests include: ??? A test of lung function. ??? Test of a mucus sample to look for the presence of bacteria. ??? Tests to check the oxygen level in your blood. ??? Blood tests. ??? Chest X-ray. How is this treated? Most cases of acute bronchitis clear up over time without treatment. Your health care provider may recommend: ??? Drinking more fluids to help thin your mucus so it is easier to cough up. ??? Taking inhaled medicine (inhaler) to improve air flow in and out of your lungs. ??? Using a vaporizer or a humidifier. These are machines that add water to the air to help you breathe better. ??? Taking a medicine that thins mucus and clears congestion (expectorant). ??? Taking a medicine that prevents or stops coughing (cough suppressant). It is notcommon to take an antibiotic medicine for this condition. Follow these instructions at home: ??? Take rmue-ktu-jamikgq and prescription medicines only as told by your health care provider. ??? Use an inhaler, vaporizer, or humidifier as told by your health care provider. ??? Take two teaspoons (10 mL) of honey at bedtime to lessen coughing at night. ??? Drink enough fluid to keep your urine pale yellow. ??? Do not use any products that contain nicotine or tobacco. These products include cigarettes, chewing tobacco, and vaping devices, such as e-cigarettes. If you need help quitting, ask your health care provider. ??? Get plenty of rest. ??? Return to your normal activities as told by your health care provider. Ask your health care provider what activities are safe for you. ??? Keep all follow-up visits. This is important. How is this prevented? To lower your risk of getting this condition again: ??? Wash your hands often with soap and water for at least 20 seconds. If soap and water are not available, use hand inventory control coordinator. ??? Avoid contact with people who have cold symptoms. ??? Try not to touch your mouth, nose, or eyes with your hands. ??? Avoid breathing in smoke or chemical fumes. Breathing smoke or chemical fumes will make your condition worse. ??? Get the flu shot every year. Contact a health care provider if: ??? Your symptoms do not improve after 2 weeks. ??? You have trouble coughing up the mucus. ??? Your cough keeps you awake at night. ??? You have a fever. Get help right away if you: ??? Cough up blood. ??? Feel pain in your chest. ??? Have severe shortness of breath. ??? Faint or keep feeling like you are going to faint. ??? Have a severe headache. ??? Have a fever or chills that get worse. These symptoms may represent a serious problem that is an emergency. Do not wait to see if the symptoms will go away. Get medical help right away. Call your local emergency services (911 in the [place] Do not drive yourself to the hospital. Summary ??? Acute bronchitis is inflammation of the main airways (bronchi) that come off the windpipe (trachea) in the lungs. The swelling causes the airways to get smaller and make more mucus than normal. ??? Drinking more fluids can help thin your mucus so it is easier to cough up. ??? Take emsz-mes-lknzdhm and prescription medicines only as told by your health care provider. ??? Do not use any products that contain nicotine or tobacco. These products include cigarettes, chewing tobacco, and vaping devices, such as e-cigarettes. If you need help quitting, ask your health care provider. ??? Contact a health care provider if your symptoms do not improve after 2 weeks. This information is not intended to replace advice given to you by your health care provider. Make sure you discuss any questions you have with your health care provider. Document Revised: 07/07/2021 Document Reviewed: 07/07/2021 [employer] Patient Education ?? 2022 [employer]. Follow Up Care 12/10/2022 00:36:18 With:Follow up with primary care provider Address:Unknown When:3 to 5 days Physician Emergency department Note * Fernando House MD: MODIFY, PERFORM, MODIFY Event Display: ED Note Physician Authored Date: [id number] MISHA JACKSON :1980 Age:42 years Sex:Female Visit Date:12/10/2022 Primary Care Physician: Hermes Ramirez MD Basic Information Time Seen: Fernando House MD / 12/10/2022 00:36 Chief Complaint pt states it started Monday night I need ??breathing tx steroids or something Julieta been taking coughand cold pt also complains of facial pressure 4th visit in approx 3 days History Of Present Illness: Patient with??liver transplant x2 kidney transplant x1, chronic migraine??with multiple visits to the emergency department??for pain medications most recently this morning. ??Patient described that she has been bothered with stuffiness and congestion??for about??5 days she does have sinus pain??andheadache and she is bothered with recurrent cough at night that keeps her up from sleep.?? Patient a lso asked for pain medications and stated that they usually give her a shot of??Dilaudid or morphine,??shot of Benadryl and shot of Phenergan??for her headache.?? She stated that she Sees a neurologist for her migraine and she usually gets Botox injections but she missed her last??appointment??patient stated that she. ??Cannot tolerate Imitrex because it gives her nausea and??other medications do not seem to work for her or she has contraindication for them because of her??rejection drugs. ??She has taken Tylenol??but she is not supposed to take NSAIDs. ??Stated that she was in the outpatient clinic??3 days ago and she had??test for influenza and COVID and they were negative. No shortness of breath, chest pain or wheezing no fever or chills Review of Systems: Constitutional:?No??fevers,?No??chills,?No??sweats Eye:?No??recent visual problems ENT:?No??ear pain,?No??nasal congestion,?No??sore throat Respiratory:?No??shortness of breath,?Positive for??cough Cardiovascular:?No??Chest pain,?No??palpitations,?No??syncope Gastrointestinal:?Nonausea,?No??vomiting,?No??diarrhea Genitourinary:?No??hematuria Clemente/Lymph:?No??bruising tendency,?No??swollen lymph glands Endocrine:?No??excessive thirst,??No??excessive hunger Musculoskeletal:??No??back pain,??No??neck pain,??No??joint pain,??No??muscle pain,??No??decreased range of motion Integumentary:?No??rash,?No??pruritus,?No??abrasions Neurologic: Alert & oriented X 4 Psychiatric:?No??anxiety,?No??depression Physical Exam Vitals & Measurements T:??37?C ??(Oral)?? HR:??98??(Peripheral)?? RR:??20?? BP:??162/93?? SpO2:??99%?? HT:??157.000??cm?? WT:??81.00??kg?? BMI:??33.000?? Pain Score:??8?? O2 Therapy:??Room air?? General: Alert and oriented, well nourished,?No??acute distress Eye: PERRL, EOMI,?Normal?conjunctiva HENT: Normocephalic,?Normal? hearing, moist oral mucosa,?No??scleral icterus,??throat is clear?? Neck: Supple, non-tender,?No??carotid bruits,?No??JVD,?No??lymphadenopathy Lungs:??Clear to auscultation?? Respiration:??Non-Labored Heart:?Normal? rate,?Regular??rhythm,?No??murmur,?No??gallop,?No??edema Musculoskeletal:?Normal? range of motion and strength,?No??tenderness,?No??swelling Skin: Skin is warm, dry and pink,?No??rashes,?No??lesions Neurologic: Awake, alert and oriented X4, CN II-XII intact Psychiatric: Cooperative, appropriate mood and affect Medical Decision Making: Records reviewed and??I had talked with the patient in terms of??management I agreed to give her??asteroid injection to help with her congestion and stuffiness and cough??and a short course of oral antibiotics??hoping to speed up her recovery.?? With regard to the headache it is probably sinus headache from??the congestion??and narcotics are not indicated for that.?? I advised patient that I will not be able to give her??narcotic??medication at this point??but I was willing to give her Benadryl and Phenergan??if she thinks that would help her.?? Patient??decided to skip the Phenergan and Benadryl??and requested a nebulizer treatment to see if that would help with her cough which I thought would be reasonable to try??although she is not wheezing at this point Patient is given Kenalog??80mg??IM??and DuoNeb and will be discharged home on amoxicillin??1 g twice daily for 1 week, p.o.??Tessalon?? as needed?follow-up with her family doctor within 3 to 4 days and follow-up with her neurologist with regard to the long-term management of her migraine headaches Procedure No Qualifying Data Assessment/Plan Acute bronchitis??J20.9 Acute URI??J06.9 Headache??R51.9 Orders: amoxicillin 500 mg oral capsule, 1,000 mg = 2 cap, Oral, BID, X 7 days, # 28 cap, 0 Refill(s), 12/17/22 1:01:00 CDT, Pharmacy: [place], [place], 157, cm, 12/10/22 0:56:00 CDT, Height/Length Dosing, 81, kg, 12/10/22 0:56:00 CDT, Weight Dosing DuoNeb, 3 mL, Inhale, Once, First Dose: 12/10/22 1:00:00 CDT, Stop Date: 12/10/22 1:00:00 CDT, Physician Stop Kenalog-40, 80 mg = 2 mL, IM, Susp-Inj, Once, First Dose: 12/10/22 0:59:00 CDT, Stop Date: 230:59:00 CDT, Physician Stop, STAT Patient Discharge Condition Stable Patient Education Acute Bronchitis, Adult Follow Up With When Contact Information Follow up with primary care provider Within 3 to 5 days Additional Instructions: Medication Reconciliation New Prescription amoxicillin (amoxicillin 500 mg oral capsule)2 Capsules Oral (given by mouth) 2 times a day for 7 Days. Refills: 0. ?? benzonatate (Tessalon Perles 100 mg oral capsule)1 Capsules Oral (given by mouth) 3 times a day as needed as needed for cough for 7 Days. Refills: 0. ?? Unchanged amLODIPine (amLODIPine [...] Family History Cancer: Mother. Electronically Signed on 12/10/22 01:38 AM Fernando House MD Patient Care team information Care Team Personnel Name: Jessee Jones PHOTO GRAPHICS LIBRARIAN Position: Physician Member Role: Nurse Practitioner Address: Address: [address] [place] [address], [place] [address]- Name: Latoya Marquez PHOTO GRAPHICS LIBRARIAN Position: Physician Member Role: Nurse Practitioner Address: Address: [address] [place] [address]- Name: Leonila Gonzalez PHOTO GRAPHICS LIBRARIAN Position: Physician Member Role: Nurse Practitioner Address: Address: [address] [place] [address]- Name: Beth Brandt PHOTO GRAPHICS LIBRARIAN Position: Physician Member Role: Nurse Practitioner Address: Address: [address] [place] [address] Name: Hermes Ramirez MD Position: Physician Member Role: Informed Provider Address: Address: [address] [place] [address], [facility] [address] [place] [address]- Name: Pillo Moe PHOTO GRAPHICS LIBRARIAN Position: Physician Member Role: Nurse Practitioner Address: Address: [address] [place] [address], [address] Name: Fernando House MD Position: Physician Member Role: Admitting Physician Name: Tori Villalpando RN Position: Nurse Member Role: Registered Nurse Care Team Related Persons Name: STACIA JONES Address: Home [address] [place], [place] [id number] Name: ROBYN JAMA
--- OUTSIDE RECORDS SUMMARY | 2024-03-20 11:45 | XMS_ITS | Continuity of Care Document ---
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 Name Role Phone Hermes Ramirez Primary Care Physician [phone] Encounter [facility] [id number] Date(s): 07/20/23 - 07/20/23 [facility] [address] [place] [address]- Discharge Disposition: Home Allergies, Adverse Reactions, Alerts [...] # 30 tab, 11 Refill(s), Pharmacy: [facility] [place], [place], 157.48, cm, 01/04/23 15:03:00 CDT, Height/Length [...] 0 Refill(s), 07/26/23 6:12:00 PM CDT, Pharmacy: [id number], 157.48, cm, 07/19/23 17:49:00 CDT, Height, 81.65, [...] BID, # 60 cap, 11 Refill(s), Pharmacy: [place], [place], 157.48, cm, 01/04/23 15:03:00 CDT, Height/Length Dosing, 81.65, kg, 01/04/23 15:03:00 CDT, Weight Dosing Start Date: 01/11/23 Status: Ordered pantoprazole 40 mg oral delayed release tablet 1 tab, Oral, Daily, # 90 tab, 0 Refill(s), Pharmacy: [id number], 157.48, cm, 06/07/23 16:07:00 CDT, Height, 89.36, [...] QID, # 360 tab, 0 Refill(s), Pharmacy: [id number], 157.48, cm, 06/07/23 16:07:00 CDT, Height, 89.36, [...] information Care Team Personnel Name: Jessee Jones FLOOR DIRECTOR Position: Physician Member Role: Nurse Practitioner Address: Address: [address] [place] [address], [address] Name: Latoya Marquez FLOOR DIRECTOR Position: Physician Member Role: Nurse Practitioner Address: Address: [address] [place] [address] Name: Leonila Gonzalez FLOOR DIRECTOR Position: Physician Member Role: Nurse Practitioner Address: Address: [address] [place] [address] Name: Beth Brandt FLOOR DIRECTOR Position: Physician Member Role: Nurse Practitioner Address: Address: [address] [place] [address] Name: Hermes Ramirez MD Position: Physician Member Role: Informed Provider Address: Address: [address] [place] [address], [address] Name: Pillo Moe NP Position: Physician Member Role: Nurse Practitioner Address: Address: [address] [place] [address], [facility] [address] [facility] Care Team Related Persons Name: STACIA JONES Address: Home [address] [id number] Name: MADY CHEN Name: MADY CHEN
--- OUTSIDE RECORDS SUMMARY | 2024-03-20 11:45 | XMS_ITS | Continuity of Care Document ---
Author Organization [facility] Address [address] [place] [address] Care Team Providers Care Wire Harness Design Engineer Name Role Phone Hermes Ramirez Primary Care Physician [phone] Encounter [facility] [id number] Date(s): 04/01/21 - 04/01/[address] [address] Encounter Diagnosis Migraine headache(Discharge Diagnosis) - 04/01/21 Diarrhea(Discharge Diagnosis) - 04/01/21 Discharge Disposition: Home or Self Care Attending Physician: Felicia Roach MD Admitting Physician: Felicia Roach MD Allergies, Adverse Reactions, Alerts Substance Reaction Severity Status gentamicin Moderate Active erythromycin Medication interaction Activ e aspirin Medication interaction Activ e Toradol Kidney failure as a complication of care Active NSAIDs Severe Active Assessment and Plan Future Appointments Functional Status 04/01/21 Family Member Travel History No recent t [...] BID, # 180 tab, 3 Refill(s), Pharmacy: [place], [place], [address], cm, 10/22/20 21:26:00 CDT, Height/Length [...] bedtime, # 45 g, 2 Refill(s), Pharmacy: [place], [place], 157.48, cm, 08/18/20 12:26:00 CDT, Height/Length [...] Laboratory List Name Date CBC w/ Diff 04/01/21 Comprehensive Metabolic Panel (CMP) 04/01 Automated Diff 04/01/21 Most recent to oldest [Reference Range]: 1 WBC [4.0-11.5 K/mcL] 6.8 K/mcL (04/01/21 12:48 PM) RBC [4.20-5.40 x10^6/mcL] 4.36 x10^6/mcL (04/01/21 12:48 PM) Neutro Auto 75.6 % *NA* (04/01/21 12:48 PM) Lymph Auto 15.0 % *NA* (04/01/21 12:48 PM) Randall Auto 5.6 % *NA* (04/01/21 12:48 PM) Basophil Auto 0.3 % *NA* (04/01/21 12:48 PM) BUN [7-18 mg/dL] 18 mg/dL (04/01/21 12:48 PM) Glucose Level [70-110 mg/dL] 97 mg/dL (04/01/21 12:48 PM) Potassium Level [3.5-5.1 mmol/L] 4.5 mmo l/L (04/01/21 12:48 PM) Baso Absolute [0.0-0.1 x10^3/mcL] 0.0 x1 0^3/mcL (04/01/21 12:48 PM) MCV [78.0-100.0 fL] 95.2 fL (04/01/21 12:48 PM) AST [15-37 unit/L] 21 unit/L (04/01/21 12:48 PM) ALT [12-78 unit/L] 26 unit/L (04/01/21 12:48 PM) MCHC [29.0-37.5 g/dL] 34.9 g/dL (04/01/21 12:48 PM) Sodium Level [136-145 mmol/L] 142 mmol/L (04/01/21 12:48 PM) Lymph Absolute [0.8-5.8 x10^3/mcL] 1.0 x 10^3/mcL (04/01/21 12:48 PM) Hct [36.0-48.0 %] 41.5 % (04/01/21 12:48 PM) Calcium Level [8.5-10.1 mg/dL] 8.5 mg/dL (04/01/21 12:48 PM) Randall Absolute [0.1-1.5 x10^3/mcL] 0.4 x1 0^3/mcL (04/01/21 12:48 PM) Albumin Level [3.4-5.0 g/dL] 3.6 g/dL (04/01/21 12:48 PM) Protein Total [6.4-8.2 g/dL] 7.2 g/dL (04/01/21 12:48 PM) MCH [27.0-34.0 pg] 33.3 pg (04/01/21 12:48 PM) Neutro Absolute [1.5-8.1 x10^3/mcL] 5.1 x10^3/mcL (04/01/21 12:48 PM) Bilirubin Total [0.0-1.0 mg/dL] 0.4 mg/d L (04/01/21 12:48 PM) Hgb [12.0-16.0 g/dL] 14.5 g/dL (04/01/21 12:48 PM) Alk Phos [46-130 unit/L] 230 unit/L *HI* (04/01/21 12:48 PM) MPV [6.0-10.0 fL] 10.4 fL *HI* (04/01/21 12:48 PM) Platelets [150-450 K/mcL] 136 K/mcL *LOW* (04/01/21 12:48 PM) CO2 [21-32 mmol/L] 25 mmol/L (04/01/21 12:48 PM) Eos Absolute [0.0-0.5 x10^3/mcL] 0.2 x10 ^3/mcL (04/01/21 12:48 PM) eGFR Non-AA 45 *NA* (04/01/21 12:48 PM) eGFR AA 55 *NA* (04/01/21 12:48 PM) Chloride Level [97-107 mmol/L] 108 mmol/ L *HI* (04/01/21 12:48 PM) RDW-CV [11.5-15.0 %] 13.5 % (04/01/21 12:48 PM) Imm Gran Absolute [0.0-0.1 x10^3/mcL] 0. 0 x10^3/mcL (04/01/21 12:48 PM) Imm Gran Auto 0.1 % *NA* (04/01/21 12:48 PM) NRBC Auto 0.0 % *NA* (04/01/21 12:48 PM) NRBC Absolute [0.0-0.0 x10^3/mcL] 0.0 x1 0^3/mcL (04/01/21 12:48 PM) Creatinine Level [0.60-1.30 mg/dL] 1.38 mg/dL *HI* (04/01/21 12:48 PM) Anion Gap [5-15 mmol/L] 14 mmol/L (04/01/21 12:48 PM) Eos, Auto 3.4 % *NA* (04/01/21 12:48 PM) Vital Signs Most recent to oldest [Reference Range]: 1 Temperature Oral [35.8-37.3 Deg C] 37 De g C (04/01/21 11:28 AM) Peripheral Pulse Rate [60-100 bpm] 106 b pm *HI* (04/01/21 11:28 AM) Respiratory Rate [12-24 br/min] 18 br/mi n (04/01/21 11:28 AM) Blood Pressure [90-140/60-90 mmHg] 156/9 5mmHg *HI* (04/01/21 11:28 AM) Weight 77.11 kg (04/01/21 11:28 AM) Weight Dosing 77.11 kg (04/01/21 12:09 PM) Height 157.480 cm (04/01/21 11:28 AM) Height/Length Dosing 157.480 cm (04/01/21 12:09 PM) Body Mass Index Estimated 31 (04/01/21 11:28 AM) Social History Social History Type Response Smoking Status 5-9 cigarettes (betw een 1/4 to 1/2 pack)/day in last 30 days entered on: 04/01/21 Sex Hospital Discharge Instructions Patient Education 04/01/2021 12:02:12 Migraine Headache, Xavv-dy-Xilb Migraine Headache A migraine headache is a [...] these instructions at home: Medicines ??? Take uibt-tbj-xlvufpm and prescription medicines only as told by your doctor. ??? Ask your doctor if the medicine prescribed to you: ??? Requires you to avoid driving or using heavy machinery. ??? Can cause trouble pooping (constipation). You may need to take these steps to prevent or treat trouble pooping: ??? Drink enough fluid to keep your pee (urine) pale yellow. ??? Take tpfq-vxb-uyybdlk or prescription medicines. ??? Eat foods that [...] provider. Document Revised: 06/28/2019 Document Reviewed: 04/18/2019 [employer] Patient Education ?? 2020 [employer] Follow Up Care 04/01/2021 11:28:28 With:Follow up with primary care provider Address: When:5 to 7 days
--- OUTSIDE RECORDS SUMMARY | 2024-03-20 11:45 | XMS_ITS | Continuity of Care Document ---
Author Organization [facility] Address [address] [place] [address] Care Team Providers Care Horn Player Name Role Phone Hermes Ramirez Primary Care Physician Encounter [facility] [id number] Date(s): 09/09/21 - 09/09/[address] [address] Encounter Diagnosis Migraine headache(Discharge Diagnosis) - 09/09/21 Discharge Disposition: Home or Self Care Attending Physician: Jesus Khan MD Admitting Physician: Jesus Khan MD Allergies, Adverse Reactions, Alerts Substance Reaction Severity Status gentamicin Moderate Active erythromycin Medication interaction Activ e aspirin Medication interaction Activ e Toradol Kidney failure as a complication of care Active NSAIDs Severe Active Functional Status 09/09/21 Family Member Travel History No recent t [...] BID, # 180 tab, 3 Refill(s), Pharmacy: [place], [place], [address], cm, 10/22/20 21:26:00 CDT, Height/Length [...] Laboratory List Name Date Strep A Screen 09/09/21 Urinalysis with Culture if Indicated 08/19 06/08 .Urine Volume 09/09/21 Urinalysis Microscopic 09/09/21 Most recent to oldest [Reference Range]: 1 UA Color Yellow (09/09/21 12:35 PM) UA WBC [0-5] 0-5 (09/09/21 12:35 PM) UA Urobilinogen [Normal mg/dL] Normal mg /dL (09/09/21 12:35 PM) UA Hyal Cast 0-2 (09/09/21 12:35 PM) UA Bili [Negative mg/dL] Negative mg/dL (09/09/21 12:35 PM) UA Ketones [Negative mg/dL] Negative mg/ dL (09/09/21 12:35 PM) UA RBC [0-3] 0-3 (09/09/21 12:35 PM) UA Leuk Est [Negative Guille/mcL] Negative Guille/mcL (09/09/21 12:35 PM) UA Nitrite [Negative] Negative (09/09/21 12:35 PM) UA Glucose [Normal mg/dL] Normal mg/dL (09/09/21 12:35 PM) UA Bacteria [None Seen] Few *ABN* (09/09/21 12:35 PM) UA Protein [Negative mg/dL] Negative mg/ dL (09/09/21 12:35 PM) UA Blood [Negative Rocael/mcL] Negative Rocael /mcL (09/09/21 12:35 PM) UA Mucous [None Seen] Occasional (09/09/21 12:35 PM) UA Spec Grav 1.015 (09/09/21 12:35 PM) UA Squam Epithelial [None Seen] Moderate *ABN* (09/09/21 12:35 PM) UA pH [5.0-9.0] 6.0 (09/09/21 12:35 PM) UA Appear [Clear] Slightly Hazy (09/09/21 12:35 PM) Streptococcus A [Negative] Negative (09/09/21 12:35 PM) UA Culture Ind?. Not Indicated (09/09/21 12:35 PM) Urine Srce Clean Catch (09/09/21 12:35 PM) Urine Volume 12 mL (09/09/21 12:35 PM) UA Yeast [None Seen] None Seen (09/09/21 12:35 PM) Vital Signs Most recent to oldest [Reference Range]: 1 Temperature Oral [35.8-37.3 Deg C] 36.8 Deg C (09/09/21 11:48 AM) Peripheral Pulse Rate [60-100 bpm] 83 bp m (09/09/21 11:48 AM) Respiratory Rate [12-24 br/min] 16 br/mi n (09/09/21 11:48 AM) Blood Pressure [90-140/60-90 mmHg] 135/8 6mmHg (09/09/21 11:48 AM) Weight Dosing 73.00 kg (09/09/21 5:04 PM) Weight Estimated 73.00 kg (09/09/21 11:48 AM) Height/Length Dosing 158.000 cm (09/09/21 5:04 PM) Height/Length Estimated 158.000 cm (09/09/21 11:48 AM) Social History Social History Type Response Smoking Status 5-9 cigarettes (betw een 1/4 to 1/2 pack)/day in last 30 days entered on: 05/12/21 Sex Hospital Discharge Instructions Patient Education 09/09/2021 12:32:34 Migraine Headache, Zmpc-xz-Vmce Migraine Headache A migraine headache is a [...] these instructions at home: Medicines ??? Take qasa-afz-hsrpedy and prescription medicines only as told by your doctor. ??? Ask your doctor if the medicine prescribed to you: ??? Requires you to avoid driving or using heavy machinery. ??? Can cause trouble pooping (constipation). You may need to take these steps to prevent or treat trouble pooping: ??? Drink enough fluid to keep your pee (urine) pale yellow. ??? Take fguc-ufg-nvluyff or prescription medicines. ??? Eat foods that [...] provider. Document Revised: 06/28/2019 Document Reviewed: 04/18/2019 [employer] Patient Education ?? 2020 [employer] Follow Up Care 09/09/2021 11:48:36 With:Hermes Ramirez MD Address: [address] [place] [address], [address] [place] [phone]- When:1 week Comments:Continue other home medications. ??Follow-up with neurologist. Care Team Personnel Name: Hermes Ramirez MD Address: [address] [place] [address], [address] [place] [address]-
--- OUTSIDE RECORDS SUMMARY | 2024-03-20 11:45 | XMS_ITS | Continuity of Care Document ---
Author Organization [facility] Address [address] [place] [address] Care Team Providers Care Cow Trimmer Name Role Phone Hermes Ramirez Primary Care Physician [phone] Encounter [facility] [id number] Date(s): 05/25/21 - 05/25/[address] [address] Encounter Diagnosis Migraine(Discharge Diagnosis) - 05/25/21 Discharge Disposition: Home or Self Care Attending Physician: Mike Malik MD Admitting Physician: Mike Malik MD Allergies, Adverse Reactions, Alerts Substance Reaction Severity Status gentamicin Moderate Active erythromycin Medication interaction Activ e aspirin Medication interaction Activ e Toradol Kidney failure as a complication of care Active NSAIDs Severe Active Assessment and Plan Future Appointments Functional Status 05/25/21 Recent Travel History No recent travel Other [...] BID, # 180 tab, 3 Refill(s), Pharmacy: [place], [place], [address], cm, 10/22/20 21:26:00 CDT, Height/Length [...] Oral [35.8-37.3 Deg C] 37.1 Deg C (05/25/21 1:39 PM) Peripheral Pulse Rate [60-100 bpm] 95 bp m (05/25/21 1:39 PM) Respiratory Rate [12-24 br/min] 18 br/mi n (05/25/21 1:39 PM) Blood Pressure [90-140/60-90 mmHg] 164/8 6mmHg *HI* (05/25/21 1:39 PM) Weight Dosing 77.11 kg (05/25/21 1:50 PM) Weight Estimated 77.11 kg (05/25/21 1:39 PM) Height/Length Dosing 157.480 cm (05/25/21 1:50 PM) Body Mass Index Estimated 31 (05/25/21 1:39 PM) Height/Length Estimated 157.480 cm (05/25/21 1:39 PM) Social History Social History Type Response Smoking Status 5-9 cigarettes (betw een 1/4 to 1/2 pack)/day in last 30 days entered on: 05/12/21 Sex Hospital Discharge Instructions Patient Education 05/25/2021 15:25:43 Migraine Headache Migraine Headache A migraine headache [...] these instructions at home: Medicines ??? Take lkhv-rup-lbjgxes and prescription medicines only as told by your health care provider. ??? Ask your health care provider if the medicine prescribed to you: ??? Requires you to avoid driving or using heavy machinery. ??? Can cause constipation. You may need to take these actions to prevent or treat constipation: ??? Drink enough fluid to keep your urine pale yellow. ??? Take hryr-xpu-xuviayr or prescription medicines. ??? Eat foods that [...] provider. Document Revised: 06/28/2019 Document Reviewed: 04/18/2019 [employer] Patient Education ?? 2020 [employer] Follow Up Care 05/25/2021 13:39:01 With:Hermes Ramirez MD Address: [address] [place] [address], [address] [place] [phone]- When:1 month Care Team Personnel Name: Hermes Ramirez MD Address: [address] [place] [address], [address] [place] [address]
--- OUTSIDE RECORDS SUMMARY | 2024-03-20 11:45 | XMS_ITS | Continuity of Care Document ---
Author Organization Formerly [facility] Address [address] [place] [address] Care Team Providers Care Process Control Supervisor Name Role Phone Hermes Ramirez Primary Care Physician Encounter ONOFREEver MCGRAW [id number] Date(s): 03/28/22 - 03/28/[address] [id number] Encounter Diagnosis Headache, chronic migraine without aura(Discharge Diagnosis) - 03/28/22 Fever(Discharge Diagnosis) - 03/28/22 Elevated transaminase level(Discharge Diagnosis) - 03/28/22 Discharge Disposition: Home or Self Care Attending [...] Plan Diagnostic Tests Pending * Blood Culture 03/28/22 * Blood Culture 03/28/22 Functional Status 03/28/22 Other exposure to Infectious Disease Non e [...] wheezing, # 6.7 g, 0 Refill(s), Pharmacy: [place], [place], [address], cm, 09/13/21 23:53:00 CDT, Height/Length [...] needed, # 12 cap, 0 Refill(s), Pharmacy: [place], [place], [address], cm, 11/04/21 20:02:00 CDT, [...] 18:45:00CST, Height/Length Dosing, 72.57, kg, 02/07/22 18:45:00 CLICKER OPERATOR, Weight Dosing Start Date: 02/13/22 Status: Ordered morphine 4 mg/mL preservative-free injectable solution 4 mg = 1 mL, IM, Once, 0 Refill(s) Start Date: 03/19/22 Status: Ordered oseltamivir 30 mg oral capsule 30 mg = 1 cap, Oral, BID, # 10 cap, 0 Refill(s), Pharmacy: [place], [place], [address], cm, 03/16/22 18:01:00 CLICKER OPERATOR, Height/Length Dosing, 77.11, kg, 03/16/22 18:01:00 CLICKER OPERATOR, Weight Dosing Start Date: 03/16/22 Status: [...] nausea/vomiting, # 20 tab, 0 Refill(s), Pharmacy: [place], [place], [address], cm, 09/29/21 23:03:00 CDT, [...] (Accula) from Swab collected on 16-MAR-2022 17:54:00 CLICKER OPERATOR tested positive for COVID-19. Procedures Procedure Date Related Diagnosis Body Site Status Bladder washout 12/14/20 Completed Kidney transplant 05/13/20 Complet ed Tx - Liver transplantation 05/08/20 Completed delivery Complet ed cyst removal from breast Completed Hernia Completed liver transplant Complete d Results Laboratory List Name Date Urinalysis with Microscopic 03/28/22 .Urine Volume 03/28/22 Urinalysis Microscopic 03/28/22 CBC w/ Diff 03/28/22 Comprehensive Metabolic Panel 03/28/22 Lactic Acid 03/28/22 Magnesium Level 03/28/22 Automated Diff 03/28/22 Most recent to oldest [Reference Range]: 1 WBC [4.0-11.5 K/mcL] 8.3 K/mcL (03/28/22 10:24 PM) RBC [4.20-5.40 x10^6/mcL] 4.14 x10^6/mcL *LOW* (03/28/22 10:24 PM) Neutro Auto 76.1 % *NA* (03/28/22 10:24 PM) Lymph Auto 12.5 % *NA* (03/28/22 10:24 PM) [place] Auto 9.7 % *NA* (03/28/22 10:24 PM) Basophil Auto 0.1 % *NA* (03/28/22 10:24 PM) BUN [7-18 mg/dL] 19 mg/dL *HI* (03/28/22 10:24 PM) UA Color Straw (03/28/22 10:25 PM) UA WBC [0-5] None (03/28/22 10:25 PM) Glucose Level [70-110 mg/dL] 92 mg/dL (03/28/22 10:24 PM) Potassium Level [3.5-5.1 mmol/L] 3.9 mmo l/L (03/28/22 10:24 PM) Baso Absolute [0.0-0.1 x10^3/mcL] 0.0 x1 0^3/mcL (03/28/22 10:24 PM) MCV [78.0-100.0 fL] 94.7 fL (03/28/22 10:24 PM) UA Urobilinogen [Normal mg/dL] Normal mg /dL (03/28/22 10:25 PM) UA Bili [Negative mg/dL] Negative mg/dL (03/28/22 10:25 PM) UA Ketones [Negative mg/dL] Negative mg/ dL (03/28/22 10:25 PM) AST [15-37 unit/L] 206 unit/L *HI* (03/28/22 10:24 PM) ALT [12-78 unit/L] 172 unit/L *HI* (03/28/22 10:24 PM) MCHC [29.0-37.5 g/dL] 34.9 g/dL (03/28/22 10:24 PM) Sodium Level [136-145 mmol/L] 137 mmol/L (03/28/22 10:24 PM) UA RBC [0-3] None (03/28/22 10:25 PM) UA Leuk Est [Negative Guille/mcL] Negative Guille/mcL (03/28/22 10:25 PM) Lymph Absolute [0.8-5.8 x10^3/mcL] 1.0 x 10^3/mcL (03/28/22 10:24 PM) UA Nitrite [Negative] Negative (03/28/22 10:25 PM) UA Glucose [Normal mg/dL] Normal mg/dL (03/28/22 10:25 PM) Hct [36.0-48.0 %] 39.2 % (03/28/22 10:24 PM) UA Bacteria [None Seen] None Seen (03/28/22 10:25 PM) Calcium Level [8.5-10.1 mg/dL] 8.4 mg/dL *LOW* (03/28/22 10:24 PM) [place] Absolute [0.1-1.5 x10^3/mcL] 0.8 x1 0^3/mcL (03/28/22 10:24 PM) Albumin Level [3.4-5.0 g/dL] 3.2 g/dL *LOW* (03/28/22 10:24 PM) Protein Total [6.4-8.2 g/dL] 6.5 g/dL (03/28/22 10:24 PM) UA Protein [Negative mg/dL] Negative mg/ dL (03/28/22 10:25 PM) MCH [27.0-34.0 pg] 33.1 pg (03/28/22 10:24 PM) Magnesium Level [1.8-2.4 mg/dL] 1.5 mg/d L *LOW* (03/28/22 10:24 PM) Neutro Absolute [1.5-8.1 x10^3/mcL] 6.3 x10^3/mcL (03/28/22 10:24 PM) Bilirubin Total [0.0-1.0 mg/dL] 0.6 mg/d L (03/28/22 10:24 PM) Hgb [12.0-16.0 g/dL] 13.7 g/dL (03/28/22 10:24 PM) Alk Phos [46-130 unit/L] 375 unit/L *HI* (03/28/22 10:24 PM) UA Blood [Negative Rocael/mcL] Negative Rocael /mcL (03/28/22 10:25 PM) MPV [6.0-10.0 fL] 10.2 fL *HI* (03/28/22 10:24 PM) UA Mucous [None Seen] None Seen (03/28/22 10:25 PM) UA Spec Grav 1.010 (03/28/22 10:25 PM) Platelets [150-450 K/mcL] 134 K/mcL *LOW* (03/28/22 10:24 PM) CO2 [21-32 mmol/L] 21 mmol/L (03/28/22 10:24 PM) Eos Absolute [0.0-0.5 x10^3/mcL] 0.1 x10 ^3/mcL (03/28/22 10:24 PM) Lactic Acid Lvl [0.4-2.0 mmol/L] 0.5 mmo l/L (03/28/22 10:24 PM) UA Squam Epithelial [None Seen] Occasion al (03/28/22 10:25 PM) UA pH [5.0-9.0] 5.0 (03/28/22 10:25 PM) eGFR Non-AA 47 *NA* (03/28/22 10:24 PM) eGFR AA 57 *NA* (03/28/22 10:24 PM) UA Appear [Clear] Clear (03/28/22 10:25 PM) Chloride Level [97-107 mmol/L] 108 mmol/ L *HI* (03/28/22 10:24 PM) RDW-CV [11.5-15.0 %] 12.3 % (03/28/22 10:24 PM) Imm Gran Absolute [0.0-0.1 x10^3/mcL] 0. 0 x10^3/mcL (03/28/22 10:24 PM) Imm Gran Auto 0.4 % *NA* (03/28/22 10:24 PM) NRBC Auto 0.0 % *NA* (03/28/22 10:24 PM) NRBC Absolute [0.0-0.0 x10^3/mcL] 0.0 x1 0^3/mcL (03/28/22 10:24 PM) UA Culture Ind?. Not Indicated (03/28/22 10:25 PM) Urine Srce Clean Catch (03/28/22 10:25 PM) Urine Volume 12 mL (03/28/22 10:25 PM) Creatinine Level [0.60-1.30 mg/dL] 1.34 mg/dL *HI* (03/28/22 10:24 PM) Anion Gap [5-15 mmol/L] 12 mmol/L (03/28/22 10:24 PM) Eos, Auto 1.2 % *NA* (03/28/22 10:24 PM) UA Yeast [None Seen] None Seen (03/28/22 10:25 PM) Vital Signs Most recent to oldest [Reference Range]: 1 Temperature Oral [35.8-37.3 Deg C] 37.4 Deg C *HI* (03/28/22 8:59 PM) Peripheral Pulse Rate [60-100 bpm] 88 bp m (03/28/22 8:59 PM) Respiratory Rate [12-24 br/min] 20 br/mi n (03/28/22 8:59 PM) Blood Pressure [90-140/60-90 mmHg] 119/8 3mmHg (03/28/22 8:59 PM) Weight 74.00 kg (03/28/22 8:59 PM) Weight Dosing 74.00 kg (03/28/22 9:25 PM) Height 157.000 cm (03/28/22 8:59 PM) Height/Length Dosing 157.000 cm (03/28/22 9:25 PM) Body Mass Index 30.000 kg/m2 (03/28/22 8:59 PM) Social History Social History Type Response Smoking Status 5-9 cigarettes (betw een 1/4 to 1/2 pack)/day in last 30 days entered on: 05/12/21 Sex Hospital Discharge Instructions Patient Education 03/28/2022 23:14:11 Chronic Migraine Headache Chronic Migraine Headache A [...] these instructions at home: Medicines ??? Take [id number]-ucoudpi and prescription medicines only as told by [...] Headache and Migraine Patients (CHAMP): headachemigraine.org ??? [place] Migraine Foundation: [email or web address].org ??? National Headache Foundation: [...] provider. Document Revised: 04/22/2020 Document Reviewed: 04/22/2020 [employer] Patient Education ?? 2021 [employer] 03/28/2022 23:14:09 Fever, Adult Fever, Adult A fever is an increase in the body's temperature. It is usually defined as a temperature of 100.4??F (38??C) or higher. Brief mild or moderate fevers generally have no long-term effects, and they often do not need treatment. Moderate or high fevers may make you feel uncomfortable and can sometimes be a sign of a serious illness or disease. The sweating that may occur with repeated or prolonged fever may also cause a loss of fluid in the body (dehydration). Fever is confirmed by taking a temperature with a thermometer. A measured temperature can vary with: ??? Age. ??? Time of day. ??? Where in the body you take the temperature. Readings may vary if you place the thermometer: ??? In the mouth (oral). ??? In the rectum (rectal). ??? In the ear (tympanic). ??? Under the arm (axillary). ??? On the forehead (temporal). Follow these instructions at home: Medicines ??? Take over-the counter and prescription medicines only as told by your health care provider. Follow the dosing instructions carefully. ??? If you were prescribed an antibiotic medicine, take it as told by your health care provider. Donot stop taking the antibiotic even if you start to feel better. General instructions ??? Watch your condition for any changes. Let your health care provider know about them. ??? Rest as needed. ??? Drink enough fluid to keep your urine pale yellow. This helps to prevent dehydration. ??? Sponge yourself or bathe with room-temperature water to help reduce your body temperature as needed. Do not use ice water. ??? Do not use too many blankets or wear clothes that are too heavy. ??? If your fever may be caused by an infection that spreads from person to person (is contagious),such as a cold or the flu, you should stay home from work and public gatherings for at least 24 hours after your fever is gone. Your fever should be gone without the need to use medicines. Contact a health care provider if: ??? You vomit. ??? You cannot eat or drink without vomiting. ??? You have diarrhea. ??? You have pain when you urinate. ??? Your symptoms do not improve with treatment. ??? You develop new symptoms. ??? You develop excessive weakness. Get help right away if: ??? You have shortness of breath or have trouble breathing. ??? You are dizzy or you faint. ??? You are disoriented or confused. ??? You develop signs of dehydration, such as: ??? Dark urine, very little urine, or no urine. ??? Cracked lips. ??? Dry mouth. ??? Sunken eyes. ??? Sleepiness. ??? Weakness. ??? You develop severe pain in your abdomen. ??? You have persistent vomiting or diarrhea. ??? You develop a skin rash. ??? Your symptoms suddenly get worse. Summary ??? A fever is an increase in the body's temperature. It is usually defined as a temperature of 100.4??F (38??C) or higher. Moderate or high fevers can sometimes be a sign of a serious illness or disease. The sweating that may occur with repeated or prolonged fever may also cause dehydration. ??? Pay attention to any changes in your symptoms and contact your health care provider if your symptoms do not improve with treatment. ??? Take over-the counter and prescription medicines only as told by your health care provider. Follow the dosing instructions carefully. ??? If your fever is from an infection that may be contagious, such as cold or flu, you should stayhome from work and public gatherings for at least 24 hours after your fever is gone. Your fever should be gone without the need to use medicines. ??? Get help right away if you develop signs of dehydration, such as dark urine, cracked lips, dry mouth, sunken eyes, sleepiness, or weakness. This information is not intended to replace advice given to you by your health care provider. Make sure you discuss any questions you have with your health care provider. Document Revised: 08/20/2018 Document Reviewed: 08/20/2018 [employer] Patient Education ?? 2021 [employer] Follow Up Care 03/28/2022 20:59:50 With:Hermes Ramirez MD Address: [address] [place] [address], [address] [place] [id number]- When:1 to 2 days Comments:If you have difficulty breathing,??vomiting,??or new concerning symptoms, return to the emergency department. ??Contact your transplant team regarding abnormal??liver enzymes. Physician Emergency department Note * Akil Casas MD: PERFORM Event Display: ED Note Physician Authored Date: [id number] MISHA JACKSON :1980 Age:41 years Sex:Female Visit Date:03/28/2022 Primary Care Physician: Hermes Ramirez MD Basic Information Time Seen: Akil Casas MD / 03/28/2022 21:26 Chief Complaint pt states my head hurt luis miguel run low grade temp and my whole body hurts it could be UTIi think some of my meds need lowered cuzi get something everytime i go out headach started this afternoon too fiocet for headach History Of Present Illness: 41-year-old woman??frequent chronic migraines,??hepatorenal transplant??with recent??rejection issues??and recently on??mycophenolate??and currently on sirolimus??comes the emergency department complaining of a fever of 100.8,??body aches, joint pain, and a bad headache??today.?? She states it started all of a sudden.?? She complains of nausea but has had no vomiting, diarrhea, chest pain, shortness of breath, abdominal pain, dysuria, hematuria,??cough or??cold symptoms.?? Patient was treated approximately 2 weeks ago for??COVID and??influenza B.?? She states she has had UTIs in the past that??gave her fevers as well.?? She states that??the immunosuppressants often cause fever and body aches as well. Review of Systems: Constitutional:?Positive for??fevers,?No??chills,?No??sweats Eye:?No??recent visual problems ENT:?No??nasal congestion,?No??sore throat Respiratory:?No??shortness of breath,?No??cough Cardiovascular:?No??Chest pain,?No??palpitations,?No??syncope Gastrointestinal:?Positive fornausea,?No??vomiting,?No??diarrhea Genitourinary:?No??hematuria, no dysuria Musculoskeletal:??No??back pain,??No??neck pain,??No??joint pain,??No??muscle pain,??No??decreased range of motion Integumentary:?No??rash,?No??pruritus,?No??abrasions Neurologic: No weakness, no numbness Psychiatric:?No??anxiety,?No??depression Physical Exam Vitals & Measurements T:??37.4?C ??(Oral)?? HR:??88??(Peripheral)?? RR:??20?? BP:??119/83?? SpO2:??97%?? HT:??157.000??cm?? WT:??74.00??kg?? BMI:??30.000?? Pain Score:??10?? O2 Therapy:??Room air?? General: Alert and oriented, well nourished,?Mild??acute distress Eye: PERRL, EOMI,?Normal??conjunctiva HENT: Normocephalic, moist oral mucosa,?No??scleral icterus Neck: Supple, non-tender Lungs: Clear to auscultation Non-labored?? respiration Heart:?Normal?? rate,?Regular??rhythm,?No??murmur, No??edema Abdomen: Soft, non-tender, non-distended,?Normal?? bowel sounds Musculoskeletal:?Normal?? range of motion and strength,?No??tenderness,?No??swelling Skin: Skin is warm, dry and pink,?No??rashes,?No??lesions Neurologic: Awake, alert and oriented X4, CN II-XII intact Psychiatric: Cooperative, appropriate mood and affect Medical Decision Making: Labs are unremarkable??except for??elevated liver enzymes??which were also elevated at the end of??January 2022.?? Bilirubin is normal.?? Patient wants to call transplant team tomorrow??for follow-up. Procedure No Qualifying Data Assessment/Plan 1.??Headache, chronic migraine without aura??G43.709 2.??Fever??R50.9 No focus.?? Normal white count, lactic acid,??and urinalysis. 3.??Elevated transaminase level??R74.01 I asked the patient if she wanted me to call to her transplant team in [place] but she said that she would??rather call them tomorrow. Orders: Blood Culture, Blood, Stat collect, ST - Stat, 03/28/22 22:04:00 CLICKER OPERATOR, Once, Lab Collect, Print Label Blood Culture, Blood, Stat collect, ST - Stat, 03/28/22 22:04:00 CLICKER OPERATOR, Once, Lab Collect, Print Label Communication Order, 03/28/22 22:04:00 CLICKER OPERATOR, Repeat Lactate in 4 hours Lactic Acid, Blood, Stat, 03/29/22 2:04:00 CLICKER OPERATOR, Once, Lab Collect Urine Culture, Urine, Clean Catch, Routine collect, RT - Routine, 03/28/22 22:04:00 CLICKER OPERATOR, Once, Nurse collect Patient Discharge Condition Good Discharge Disposition Home Patient Education Chronic Migraine Headache Fever, Adult Follow Up With When Contact Information Hermes Ramirez MD Within 1 to 2 days [facility] [address] [place] [id number]- Additional Instructions: If you have difficulty breathing,??vomiting,??or new concerning symptoms, return to the emergency department. ??Contact your transplant team regarding abnormal??liver enzymes. Medication Reconciliation Unchanged albuterol (albuterol 90 mcg/inh [...] Gout Headache, chronic migraine without aura Headache, migraine, intractable Health education/counseling Heart murmur [...] and Differential?? LATEST RESULTS?? HISTORICAL RESULTS?? WBC?? 03/28/22 22:24?? 8.3?? 03/22/22?? 5.7?? RBC?? 03/28/22 22:24?? 4.14 ??Low?? 03/22/22?? 3.89 ??Low?? Hgb?? 03/28/22 22:24?? 13.7?? 03/22/22?? 13.0?? Hct?? 03/28/22 22:24?? 39.2?? 03/22/22?? 37.5?? MCV?? 03/28/22 22:24?? 94.7?? 03/22/22?? 96.4?? MCH?? 03/28/22 22:24?? 33.1?? 03/22/22?? 33.4?? MCHC?? 03/28/22 22:24?? 34.9?? 03/22/22?? 34.7?? RDW-CV?? 03/28/22 22:24?? 12.3?? 03/22/22?? 13.1?? Platelets?? 03/28/22 22:24?? 134 ??Low?? 03/22/22?? 106 ??Low?? MPV?? 03/28/22 22:24?? 10.2 ??High?? 03/22/22?? 10.1 ??High?? Neutro Auto?? 03/28/22 22:24?? 76.1?? 03/22/22?? 59.0?? Lymph Auto?? 03/28/22 22:24?? 12.5?? 03/22/22?? 27.6?? [place] Auto?? 03/28/22 22:24?? 9.7?? 03/22/22?? 7.7?? Eos, Auto?? 03/28/22 22:24?? 1.2?? 03/22/22?? 5.1?? Basophil Auto?? 03/28/22 22:24?? 0.1?? 03/22/22?? 0.2?? Imm Gran Auto?? 03/28/22 22:24?? 0.4?? 03/22/22?? 0.4?? NRBC Auto?? 03/28/22 22:24?? 0.0?? 03/22/22?? 0.0?? Neutro Absolute?? 03/28/22 22:24?? 6.3?? 03/22/22?? 3.4?? Lymph Absolute?? 03/28/22 22:24?? 1.0?? 03/22/22?? 1.6?? [place] Absolute?? 03/28/22 22:24?? 0.8?? 03/22/22?? 0.4?? Eos Absolute?? 03/28/22 22:24?? 0.1?? 03/22/22?? 0.3?? Baso Absolute?? 03/28/22 22:24?? 0.0?? 03/22/22?? 0.0?? Imm Gran Absolute?? 03/28/22 22:24?? 0.0?? 03/22/22?? 0.0?? NRBC Absolute?? 03/28/22 22:24?? 0.0?? 03/22/22?? 0.0? Routine Chemistry?? LATEST RESULTS?? HISTORICAL RESULTS?? Sodium Level?? 03/28/22 22:24?? 137?? 03/22/22?? 140?? Potassium Level?? 03/28/22 22:24?? 3.9?? 03/22/22?? 3.7?? Chloride Level?? 03/28/22 22:24?? 108 ??High?? 03/22/22?? 112 ??High?? CO2?? 03/28/22 22:24?? 21?? 03/22/22?? 21?? Alk Phos?? 03/28/22 22:24?? 375 ??High?? 03/22/22?? 194 ??High?? AST?? 03/28/22 22:24?? 206 ??High?? 03/22/22?? 15?? ALT?? 03/28/22 22:24?? 172 ??High?? 03/22/22?? 20?? BUN?? 03/28/22 22:24?? 19 ??High?? 03/22/22?? 28 ??High?? Glucose Level?? 03/28/22 22:24?? 92?? 03/22/22?? 114 ??High?? Creatinine Level?? 03/28/22 22:24?? 1.34 ??High?? 03/22/22?? 1.62 ??High?? eGFR AA?? 03/28/22 22:24?? 57?? 03/22/22?? 45?? eGFR Non-AA?? 03/28/22 22:24?? 47?? 03/22/22?? 38?? Calcium Level?? 03/28/22 22:24?? 8.4 ??Low?? 03/22/22?? 8.5?? Protein Total?? 03/28/22 22:24?? 6.5?? 03/22/22?? 6.2 ??Low?? Albumin Level?? 03/28/22 22:24?? 3.2 ??Low?? 03/22/22?? 3.0 ??Low?? Bilirubin Total?? 03/28/22 22:24?? 0.6?? 03/22/22?? 0.4?? Anion Gap?? 03/28/22 22:24?? 12?? 03/22/22?? 11?? Lactic Acid Lvl?? 03/28/22 22:24?? 0.5?? 02/16/22?? 0.7?? Magnesium Level?? 03/28/22 22:24?? 1.5 ??Low?? 03/22/22?? 1.5 ??Low? UA Macroscopic?? LATEST RESULTS?? HISTORICAL RESULTS?? Urine Srce?? 03/28/22 22:25?? Clean Catch?? 02/16/22?? Clean Catch?? Urine Volume?? 03/28/22 22:25?? 12?? 02/16/22?? 12?? UA Color?? 03/28/22 22:25?? Straw?? 02/16/22?? Luz Maria Abnormal?? UA Appear?? 03/28/22 22:25?? Clear?? 02/16/22?? Clear?? UA Glucose?? 03/28/22 22:25?? Normal?? 02/16/22?? Normal?? UA Bili?? 03/28/22 22:25?? Negative?? 02/16/22?? 1 Abnormal?? UA Ketones?? 03/28/22 22:25?? Negative?? 02/16/22?? Negative?? UA Spec Grav?? 03/28/22 22:25?? 1.010?? 02/16/22?? 1.015?? UA Blood?? 03/28/22 22:25?? Negative?? 02/16/22?? Negative?? UA pH?? 03/28/22 22:25?? 5.0?? 02/16/22?? 5.0?? UA Protein?? 03/28/22 22:25?? Negative?? 02/16/22?? Trace Abnormal?? UA Urobilinogen?? 03/28/22 22:25?? Normal?? 02/16/22?? 4 Abnormal?? UA Nitrite?? 03/28/22 22:25?? Negative?? 02/16/22?? Negative?? UA Leuk Est?? 03/28/22 22:25?? Negative?? 02/16/22?? Negative?? UA Culture Ind?.?? 03/28/22 22:25?? Not Indicated?? 02/16/22?? Not Indicated? UA Microscopic?? LATEST RESULTS?? HISTORICAL RESULTS?? UA WBC?? 03/28/22 22:25?? None?? 02/16/22?? 0-5?? UA RBC?? 03/28/22 22:25?? None?? 02/16/22?? None?? UA Squam Epithelial?? 03/28/22 22:25?? Occasional?? 02/16/22?? Moderate Abnormal?? UA Yeast?? 03/28/22 22:25?? None Seen?? 01/01/22?? None Seen?? UA Mucous?? 03/28/22 22:25?? None Seen?? 01/01/22?? None Seen?? UA Bacteria?? 03/28/22 22:25?? None Seen?? 02/16/22?? Few Abnormal? Electronically Signed on 03/28/22 11:17 PM Akil Casas MD Patient Care team information Personnel Name: Hermes Ramirez MD Address: Address: [address] [place] [address], [address] [place] [id number]
--- OUTSIDE RECORDS SUMMARY | 2024-03-20 11:45 | XMS_ITS | Continuity of Care Document ---
Author Organization [facility] hospital Address [address] [place] [address] Care Team Providers Care Electric Motor Control Assembler Name Role Phone Hermes Ramirez Primary Care Physician [phone] Encounter ONOFREEver MCGRAW [id number] Date(s): 12/05/21 - 12/05/[address] [address] Encounter Diagnosis Migraine(Discharge Diagnosis) - 12/05/21 Discharge Disposition: Home or Self Care Attending [...] wheezing, # 6.7 g, 0 Refill(s), Pharmacy: [facility] [place], [place], 73, cm, 09/13/21 23:53:00 CDT, Height/Length [...] needed, # 12 cap, 0 Refill(s), Pharmacy: [place], [place], 157, cm, 11/04/21 20:02:00 CDT, Height/Length Dosing, 73, kg, 11/04/21 20:02:00 CDT, Weight Dosing Start Date: 11/04/21 Status: Ordered cefaclor 500 mg oral tablet, extended release 500 mg = 1 tab, Oral, BID, # 20 tab, 0 Refill(s), Pharmacy: [place], [place], [address], cm, 11/18/21 23:46:00 CDT, Height/Length Dosing, 73, kg, 11/18/21 23:46:00 CDT, Weight Dosing Start Date: 11/19/21 Stop Date: 11/29/21 Status: Ordered Fioricet with Codeine 50 mg-300 mg-40 mg-30 mg oral capsule 1 cap, Oral, every 4 hr, PRN as needed, # 12 cap, 0 Refill(s), Pharmacy: [place], [place], [address], cm, 11/29/21 8:04:00 CDT, Height/Length [...] BID, # 180 tab, 3 Refill(s), Pharmacy: [place], [place], [address], cm, 10/22/20 21:26:00 CDT, Height/Length Dosing, 74, kg, 10/22/20 21:26:00 CDT, Weight Dosing Start Date: 12/18/20 Status: Ordered morphine 4 mg/mL preservative-free injectable solution 4 mg = 1 mL, IM, Once, 0 Refill(s) Start Date: 11/25/21 Status: Ordered ondansetron 4 mg oral tablet, disintegrating 4 mg = 1 tab, Oral, every 6 hr, PRN nausea/vomiting, # 12 tab, 0 Refill(s), Pharmacy: [place], [place], [address], cm, 11/04/21 20:02:00 CDT, Height/Length [...] nausea/vomiting, # 20 tab, 0 Refill(s), Pharmacy: [place], [place], [address], cm, 09/29/21 23:03:00 CDT, Height/Length [...] Oral [35.8-37.3 Deg C] 36.9 Deg C (12/05/21 6:38 PM) Peripheral Pulse Rate [60-100 bpm] 111 b pm *HI* (12/05/21 6:38 PM) Respiratory Rate [12-24 br/min] 18 br/mi n (12/05/21 6:38 PM) Blood Pressure [90-140/60-90 mmHg] 163/9 6mmHg *HI* (12/05/21 6:38 PM) Weight Dosing 73.00 kg (12/05/21 6:42 PM) Weight Estimated 73.00 kg (12/05/21 6:38 PM) Height/Length Dosing 157.000 cm (12/05/21 6:42 PM) Height/Length Estimated 157.000 cm (12/05/21 6:38 PM) Social History Social History Type Response Tobacco Current everyday tob acco user Tobacco Use:. Sex Hospital Discharge Instructions Patient Education 12/05/2021 18:55:40 Chronic Migraine Headache Chronic Migraine Headache A [...] these instructions at home: Medicines ??? Take [id number] and prescription medicines only as told by [...] Headache and Migraine Patients (CHAMP): headachemigraine.org ??? [place] Migraine Foundation: [email or web address].org ??? National Headache Foundation: [...] Reviewed: 04/22/2020 [employer] Patient Education ?? 2021 [employer] Follow Up Care 12/05/2021 18:38:08 With:Hermes Ramirez MD Address: [address] [place] [address], [address] [place] [id number]- When:1 month Patient Care team information Personnel Name: Hermes Ramirez MD Address: Address: [address] [place] [address], [address] [place] [address]-
--- OUTSIDE RECORDS SUMMARY | 2024-03-20 11:45 | XMS_ITS | Continuity of Care Document ---
Author Organization [facility] Address [address] [place] [address] Care Team Providers Care Boat Cleaner Name Role Phone Hermes Ramirez Primary Care Physician Encounter ONOFRE MCGRAW [id number] Date(s): 05/25/22 - 05/25/22 [address] [place] [address] [place] [address] [place] Discharge Disposition: Home or [...] Pending * Tacrolimus (FK506), Blood LC/MS LC 05/25/22 Future Scheduled Tests Laboratory* Giardia lamblia [...] 18:45:00CST, Height/Length Dosing, 72.57, kg, 02/07/22 18:45:00 [employer], Weight Dosing Start Date: 02/13/22 Status: Ordered morphine 2 mg/mL preservative-free injectable solution 2 mg = 1 mL, IM, Once, 0 Refill(s) Start Date: 05/05/22 Status: Ordered oseltamivir 30 mg oral capsule 30 mg = 1 cap, Oral, BID, # 10 cap, 0 Refill(s), Pharmacy: [place], [place], 157.48, cm, 03/16/22 18:01:00 [employer], Height/Length Dosing, 77.11, kg, 03/16/22 18:01:00 [employer], Weight Dosing Start Date: 03/16/22 Status: Ordered [...] Results Laboratory List Name Date Automated Diff 05/25/22 CBC w/ Diff 05/25/22 Comprehensive Metabolic Panel 05/25/22 GGT 05/25/22 Most recent to oldest [Reference Range]: 1 WBC [4.0-11.5 K/mcL] 4.6 K/mcL (05/25/22 9:42 AM) RBC [4.20-5.40 x10^6/mcL] 4.01 x10^6/mcL *LOW* (05/25/22 9:42 AM) Neutro Auto 74.1 % *NA* (05/25/22 9:42 AM) Lymph Auto 14.9 % *NA* (05/25/22 9:42 AM) [place] Auto 5.6 % *NA* (05/25/22 9:42 AM) Basophil Auto 0.2 % *NA* (05/25/22 9:42 AM) BUN [7-18 mg/dL] 13 mg/dL (05/25/22 9:42 AM) Glucose Level [70-110 mg/dL] 129 mg/dL *HI* (05/25/22 9:42 AM) Potassium Level [3.5-5.1 mmol/L] 3.8 mmo l/L (05/25/22 9:42 AM) Baso Absolute [0.0-0.1 x10^3/mcL] 0.0 x1 0^3/mcL (05/25/22 9:42 AM) MCV [78.0-100.0 fL] 93.3 fL (05/25/22 9:42 AM) AST [15-37 unit/L] 119 unit/L *HI* (05/25/22 9:42 AM) ALT [12-78 unit/L] 296 unit/L *HI* (05/25/22 9:42 AM) MCHC [29.0-37.5 g/dL] 33.2 g/dL (05/25/22 9:42 AM) Sodium Level [136-145 mmol/L] 144 mmol/L (05/25/22 9:42 AM) Lymph Absolute [0.8-5.8 x10^3/mcL] 0.7 x 10^3/mcL *LOW* (05/25/22 9:42 AM) Hct [36.0-48.0 %] 37.4 % (05/25/22 9:42 AM) Calcium Level [8.5-10.1 mg/dL] 8.7 mg/dL (05/25/22 9:42 AM) [place] Absolute [0.1-1.5 x10^3/mcL] 0.3 x1 0^3/mcL (05/25/22 9:42 AM) Albumin Level [3.4-5.0 g/dL] 3.0 g/dL *LOW* (05/25/22 9:42 AM) Protein Total [6.4-8.2 g/dL] 7.0 g/dL (05/25/22 9:42 AM) MCH [27.0-34.0 pg] 30.9 pg (05/25/22 9:42 AM) Neutro Absolute [1.5-8.1 x10^3/mcL] 3.4 x10^3/mcL (05/25/22 9:42 AM) Bilirubin Total [0.0-1.0 mg/dL] 0.6 mg/d L (05/25/22 9:42 AM) Hgb [12.0-16.0 g/dL] 12.4 g/dL (05/25/22 9:42 AM) Alk Phos [46-130 unit/L] 456 unit/L *HI* (05/25/22 9:42 AM) MPV [6.0-10.0 fL] 10.4 fL *HI* (05/25/22 9:42 AM) Platelets [150-450 K/mcL] 125 K/mcL 1 *LOW* (05/25/22 9:42 AM) CO2 [21-32 mmol/L] 21 mmol/L (05/25/22 9:42 AM) Eos Absolute [0.0-0.5 x10^3/mcL] 0.2 x10 ^3/mcL (05/25/22 9:42 AM) GGT [5-55 unit/L] 415 unit/L *HI* (05/25/22 9:42 AM) eGFR Non-AA 50 *NA* (05/25/22 9:42 AM) eGFR AA 60 *NA* (05/25/22 9:42 AM) Chloride Level [97-107 mmol/L] 110 mmol/ L *HI* (05/25/22 9:42 AM) RDW-CV [11.5-15.0 %] 12.4 % (05/25/22 9:42 AM) Imm Gran Absolute [0.0-0.1 x10^3/mcL] 0. 0 x10^3/mcL (05/25/22 9:42 AM) Imm Gran Auto 0.2 % *NA* (05/25/22 9:42 AM) NRBC Auto 0.0 % *NA* (05/25/22 9:42 AM) NRBC Absolute [0.0-0.0 x10^3/mcL] 0.0 x1 0^3/mcL (05/25/22 9:42 AM) Creatinine Level [0.60-1.30 mg/dL] 1.27 mg/dL (05/25/22 9:42 AM) Anion Gap [5-15 mmol/L] 17 mmol/L *HI* (05/25/22 9:42 AM) Eos, Auto 5.0 % *NA* (05/25/22 9:42 AM) 1Result Comment: Platelet count verified by visual estimate. Manual count: 149,400/uL Social History Social History Type Response Tobacco Current everyday tob acco user Tobacco Use:. Sex Patient Care team information Care Team Personnel Name: Jessee Jones NOZZLE WORKER Position: Physician Member Role: Nurse Practitioner Address: Address: [address] [place] [address], [address] [place] [address]- Name: Latoya Marquez NOZZLE WORKER Position: Physician Member Role: Nurse Practitioner Address: Address: [address] [place] [address]- Name: Leonila Gonzalez NOZZLE WORKER Position: Physician Member Role: Nurse Practitioner Address: Address: [address] [place] [address]- Name: Beth Brandt NOZZLE WORKER Position: Physician Member Role: Nurse Practitioner Address: Address: [address] [place] [address] Name: Hermes Ramirez MD Position: Physician Member Role: Informed Provider Address: Address: [address] [place] [address], [address] [place] [address]- Name: Pillo Moe NOZZLE WORKER Position: Physician Member Role: Nurse Practitioner Address: Address: [address] [place] [address], [address] [facility] Care Team Related Persons Name: STACIA JONES Address: Home [address], [place] [id number] Name: ROBYN JAMA Address: Home
--- OUTSIDE RECORDS SUMMARY | 2024-03-20 11:45 | XMS_ITS | Continuity of Care Document ---
Author Organization [facility] Address [address] [place] [address] Care Team Providers Care Ground Intelligence Officer Name Role Phone Hermes Ramirez Chris Primary Care Physician [phone] Encounter ONOFRE MCGRAW [id number] Date(s): 01/05/22 - 01/05/22 [address] [address] [place], [place] [address] Encounter Diagnosis Urinary tract infection in female(Discharge Diagnosis) - 01/05/22 Fever(Discharge Diagnosis) - 01/05/22 Flank pain(Discharge Diagnosis) - 01/05/22 Discharge Disposition: Home or Self Care Attending Physician: Jeuss Khan MD Admitting Physician: Jesus Khan MD Allergies, Adverse Reactions, Alerts Substance Reaction Severity Status codeine Unknown Itching Severe Active gentamicin Moderate Active erythromycin Medication interaction Activ e azithromycin Unknown Severe Active aspirin Medication interaction Severe Activ e Toradol Kidney failure as a complication of care Severe Active NSAIDs Severe Active Assessment and Plan Future Appointments Diagnostic Tests Pending * Blood Culture 01/05/22 * Blood Culture 01/05/22 Functional Status 01/05/22 Other exposure to Infectious Disease Non e [...] wheezing, # 6.7 g, 0 Refill(s), Pharmacy: [place], [place], 73, cm, 09/13/21 23:53:00 CDT, Height/Length [...] needed, # 12 cap, 0 Refill(s), Pharmacy: [place], [place], 157, cm, 11/04/21 20:02:00 CDT, Height/Length Dosing, 73, kg, 11/04/21 20:02:00 CDT, Weight Dosing Start Date: 11/04/21 Status: Ordered ciprofloxacin 500 mg oral tablet 500 mg = 1 tab, Oral, every 12 hr, # 14 tab, 0 Refill(s), Pharmacy: [facility], 157, cm, 01/01/22 18:29:00 CDT, Height/Length [...] BID, # 180 tab, 3 Refill(s), Pharmacy: [place], [place], [address], cm, 10/22/20 21:26:00 CDT, Height/Length Dosing, 74, kg, 10/22/20 21:26:00 CDT, Weight Dosing Start Date: 12/18/20 Status: Ordered ondansetron 4 mg oral tablet, disintegrating 4 mg = 1 tab, Oral, every 6 hr, PRN nausea/vomiting, # 12 tab, 0 Refill(s), Pharmacy: [place], [place], [address], cm, 11/04/21 20:02:00 CDT, Height/Length [...] nausea/vomiting, # 20 tab, 0 Refill(s), Pharmacy: [place], [place], [address], cm, 09/29/21 23:03:00 CDT, Height/Length [...] Laboratory List Name Date CBC w/ Diff 01/05/22 Comprehensive Metabolic Panel (CMP) 12/18 12/09 Lactic Acid 01/05/22 Automated Diff 01/05/22 Most recent to oldest [Reference Range]: 1 WBC [4.0-11.5 K/mcL] 5.5 K/mcL (01/05/22 12:50 AM) RBC [4.20-5.40 x10^6/mcL] 3.90 x10^6/mcL *LOW* (01/05/22 12:50 AM) Neutro Auto 64.9 % *NA* (01/05/22 12:50 AM) Lymph Auto 23.5 % *NA* (01/05/22 12:50 AM) [place] Auto 6.6 % *NA* (01/05/22 12:50 AM) Basophil Auto 0.2 % *NA* (01/05/22 12:50 AM) BUN [7-18 mg/dL] 16 mg/dL (01/05/22 12:50 AM) Glucose Level [70-110 mg/dL] 98 mg/dL (01/05/22 12:50 AM) Potassium Level [3.5-5.1 mmol/L] 3.2 mmo l/L *LOW* (01/05/22 12:50 AM) Baso Absolute [0.0-0.1 x10^3/mcL] 0.0 x1 0^3/mcL (01/05/22 12:50 AM) MCV [78.0-100.0 fL] 95.9 fL (01/05/22 12:50 AM) AST [15-37 unit/L] 15 unit/L (01/05/22 12:50 AM) ALT [12-78 unit/L] 78 unit/L (01/05/22 12:50 AM) MCHC [29.0-37.5 g/dL] 34.2 g/dL (01/05/22 12:50 AM) Sodium Level [136-145 mmol/L] 139 mmol/L (01/05/22 12:50 AM) Lymph Absolute [0.8-5.8 x10^3/mcL] 1.3 x 10^3/mcL (01/05/22 12:50 AM) Hct [36.0-48.0 %] 37.4 % (01/05/22 12:50 AM) Calcium Level [8.5-10.1 mg/dL] 8.4 mg/dL *LOW* (01/05/22 12:50 AM) [place] Absolute [0.1-1.5 x10^3/mcL] 0.4 x1 0^3/mcL (01/05/22 12:50 AM) Albumin Level [3.4-5.0 g/dL] 3.0 g/dL *LOW* (01/05/22 12:50 AM) Protein Total [6.4-8.2 g/dL] 7.0 g/dL (01/05/22 12:50 AM) MCH [27.0-34.0 pg] 32.8 pg (01/05/22 12:50 AM) Neutro Absolute [1.5-8.1 x10^3/mcL] 3.6 x10^3/mcL (01/05/22 12:50 AM) Bilirubin Total [0.0-1.0 mg/dL] 0.4 mg/d L (01/05/22 12:50 AM) Hgb [12.0-16.0 g/dL] 12.8 g/dL (01/05/22 12:50 AM) Alk Phos [46-130 unit/L] 215 unit/L *HI* (01/05/22 12:50 AM) MPV [6.0-10.0 fL] 10.5 fL *HI* (01/05/22 12:50 AM) Platelets [150-450 K/mcL] 134 K/mcL *LOW* (01/05/22 12:50 AM) CO2 [21-32 mmol/L] 24 mmol/L (01/05/22 12:50 AM) Eos Absolute [0.0-0.5 x10^3/mcL] 0.2 x10 ^3/mcL (01/05/22 12:50 AM) Lactic Acid Lvl [0.4-2.0 mmol/L] 0.7 mmo l/L (01/05/22 12:50 AM) eGFR Non-AA 44 *NA* (01/05/22 12:50 AM) eGFR AA 53 *NA* (01/05/22 12:50 AM) Chloride Level [97-107 mmol/L] 107 mmol/ L (01/05/22 12:50 AM) RDW-CV [11.5-15.0 %] 12.0 % (01/05/22 12:50 AM) Imm Gran Absolute [0.0-0.1 x10^3/mcL] 0. 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 pain in right flank (side of transplant in 2020). states is now having body aches, right lower back pain DURATION: 4 days Comparisons: 09/29/2020 PREVIOUS SURGERY: kidney transplant, liver transplant x2, tubal ligation and ablasion SMOKING HISTORY: TECHNIQUE: CT scan of the abdomen and pelvis performed without intravenous and without oral contrast using helical scanning technique. Reconstructed coronal and sagittal MPR images reviewed. All images stored on PACS. Automated exposure control was used as a dose optimization technique for this examination. COMPARISON: 09/29/2020 FINDINGS: LOWER CHEST: Calcified right base granuloma unchanged. Lung bases otherwise clear. Yojj-aj-yktqluea cardiomegaly. No effusion. LIVER/BILIARY: Unchanged left lobe irregularity. Otherwise unremarkable. Biliary tree normal in caliber. GALLBLADDER: Unremarkable. SPLEEN: Normal. PANCREAS: Normal. ADRENAL GLANDS: Normal. 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 Moderate renal atrophy. Ureters and bladder appear normal. Right renal allograft unremarkable. GI: Stomach small bowel appear normal. Colon and appendix unremarkable. OTHER ABDOMINAL/PELVIS: Major vascular structures are normal in caliber. No enlarged lymph node or free fluid. Pelvic viscera unremarkable. MSK: Mild disc disease and facet arthropathy. Old coccyx injury. BODY WALL: Unremarkable. IMPRESSION: 1. Slight haziness around the right renal allograft appears similar to priors. No obstruction or other acute abnormality is identified. Sensitivity for pyelonephritis is poor without contrast. 2. Chronic findings as above. THIS IS AN ELECTRONICALLY VERIFIED FINAL REPORT 01/05/2022 1:16 AM - Electronically signed by Davion Whitesied M.D. AR: NICKY Report ID: [id number] Reading Location: [id number] Final Dictated by: Davion Whiteside Dictated DT/TM: 01/05/2022 1:19 am Signed by: Davion Whiteside MD Signed (Electronic Signature): 01/05/2022 1:19 am Vital Signs Most recent to oldest [Reference Range]: 1 Temperature Oral [35.8-37.3 Deg C] 37.7 Deg C *HI* (01/05/22 12:13 AM) Peripheral Pulse Rate [60-100 bpm] 90 bp m (01/05/22 12:13 AM) Respiratory Rate [12-24 br/min] 18 br/mi n (01/05/22 12:13 AM) Blood Pressure [90-140/60-90 mmHg] 145/8 7mmHg *HI* (01/05/22 12:13 AM) Weight 72.57 kg (01/05/22 12:13 AM) Weight Dosing 72.57 kg (01/05/22 12:17 AM) Height 157.000 cm (01/05/22 12:13 AM) Height/Length Dosing 157.000 cm (01/05/22 12:17 AM) Social History Social History Type Response Tobacco Current some day tob acco user Tobacco Use:. Sex Hospital Discharge Instructions Patient Education 01/05/2022 02:22:30 Urinary Tract Infection, Adult, Waes-rd-Bgnw Urinary Tract Infection, Adult A urinary tract infection (UTI) is an infection of any part of the urinary tract. The urinary tractincludes: ??? The kidneys. ??? The ureters. ??? The bladder. ??? The urethra. These organs make, store, and get rid of pee (urine) in the body. What are the causes? This infection is caused by germs (bacteria) in your genital area. These germs grow and cause swelling (inflammation) of your urinary tract. What increases the risk? The following factors may make you more likely to develop this condition: ??? Using a small, thin tube (catheter) to drain pee. ??? Not being able to control when you pee or poop (incontinence). ??? Being female. If you are female, these things can increase the risk: ??? Using these methods to prevent : ??? A medicine that kills sperm (spermicide). ??? A device that blocks sperm (diaphragm). ??? Having low levels of a female hormone (estrogen). ??? Being . You are more likely to develop this condition if: ??? You have genes that add to your risk. ??? You are sexually active. ??? You take antibiotic medicines. ??? You have trouble peeing because of: ??? A prostate that is bigger than normal, if you are male. ??? A blockage in the part of your body that drains pee from the bladder. ??? A kidney stone. ??? A nerve condition that affects your bladder. ??? Not getting enough to drink. ??? Not peeing often enough. ??? You have other conditions, such as: ??? Diabetes. ??? A weak disease-fighting system (immune system). ??? Sickle cell disease. ??? Gout. ??? Injury of the spine. What are the signs or symptoms? Symptoms of this condition include: ??? Needing to pee right away. ??? Peeing small amounts often. ??? Pain or burning when peeing. ??? Blood in the pee. ??? Pee that smells bad or not like normal. ??? Trouble peeing. ??? Pee that is cloudy. ??? Fluid coming from the vagina, if you are female. ??? Pain in the belly or lower back. Other symptoms include: ??? Vomiting. ??? Not feeling hungry. ??? Feeling mixed up (confused). This may be the first symptom in older adults. ??? Being tired and grouchy (irritable). ??? A fever. ??? Watery poop (diarrhea). How is this treated? Taking antibiotic medicine. ??? Taking other medicines. ??? Drinking enough water. In some cases, you may need to see a specialist. Follow these instructions at home: Medicines ??? Take dcko-mrh-dquwukx and prescription medicines only as told by your doctor. ??? If you were prescribed an antibiotic medicine, take it as told by your doctor. Do not stop taking it even if you start to feel better. General instructions ??? Make sure you: ??? Pee until your bladder is empty. ??? Do not hold pee for a long time. ??? Empty your bladder after sex. ??? Wipe from front to back after peeing or pooping if you are a female. Use each tissue one time when you wipe. ??? Drink enough fluid to keep your pee pale yellow. ??? Keep all follow-up visits. Contact a doctor if: ??? You do not get better after 1???2 days. ??? Your symptoms go away and then come back. Get help right away if: ??? You have very bad back pain. ??? You have very bad pain in your lower belly. ??? You have a fever. ??? You have chills. ??? You feeling like you will vomit or you vomit. Summary ??? A urinary tract infection (UTI) is an infection of any part of the urinary tract. ??? This condition is caused by germs in your genital area. ??? There are many risk factors for a UTI. ??? Treatment includes antibiotic medicines. ??? Drink enough fluid to keep your pee pale yellow. This information is not intended to replace advice given to you by your health care provider. Make sure you discuss any questions you have with your health care provider. Document Revised: 10/16/2020 Document Reviewed: 10/16/2020 [employer] Patient Education ?? 2021 [employer]. 01/05/2022 02:22:20 Flank Pain, Adult, Hfwk-kp-Jnwq Flank Pain, Adult Flank pain is pain in your side. The flank is the area on your side between your upper belly (abdomen) and your spine. The pain may occur over a short time (acute), or it may be long-term or come back often (chronic). It may be mild or very bad. Pain in this area can be caused by many different things. Follow these instructions at home: ??? Drink enough fluid to keep your pee (urine) pale yellow. ??? Rest as told by your doctor. ??? Take yweb-cgw-bjwtovr and prescription medicines only as told by your doctor. ??? Keep a journal to keep track of: ??? What has caused your flank pain. ??? What has made your flank pain feel better. ??? Keep all follow-up visits. Contact a doctor if: ??? Medicine does not help your pain. ??? You have new symptoms. ??? Your pain gets worse. ??? Your symptoms last longer than 2???3 days. ??? You have trouble peeing. ??? You are peeing more often than normal. Get help right away if: ??? You have trouble breathing. ??? You are short of breath. ??? Your belly hurts, or it is swollen or red. ??? You feel like you may vomit (nauseous). ??? You vomit. ??? You feel faint, or you faint. ??? You have blood in your pee. ??? You have flank pain and a fever. These symptoms may be an emergency. Get help right away. Call your local emergency services (911 int [place] ??? Do not wait to see if the symptoms will go away. ??? Do not drive yourself to the hospital. Summary ??? Flank pain is pain in your side. The flank is the area of your side between your upper belly (abdomen) and your spine. ??? Flank pain may occur over a short time (acute), or it may be long-term or come back often (chronic). It may be mild or very bad. ??? Pain in this area can be caused by many different things. ??? Contact your doctor if your symptoms get worse or last longer than 2???3 days. This information is not intended to replace advice given to you by your health care provider. Make sure you discuss any questions you have with your health care provider. Document Revised: 05/17/2021 Document Reviewed: 05/17/2021 [employer] Patient Education ?? 2021 [employer]. Follow Up Care 01/05/2022 00:13:51 With:Hermes Ramirez MD Address: [address] [place] [address] [place] [address]- When:24 Hours Comments:States??has appointment to see PCP??on 01/05/2022.?? Continue with Cipro 500 mg p.o.??twice a day.?? Tums worsen. Note * Davion Whiteside MD: VERIFY, VERIFY, PERFORM Event Display: Report Authored Date: [id number] EXAM DESCRIPTION: CT Renal Stone Study REASON FOR STUDY: patient states history of UTI. pain in right flank (side of transplant in 2020). states is now having body aches, right lower back pain DURATION: 4 days Comparisons: 09/29/2020 PREVIOUS SURGERY: kidney transplant, liver transplant x2, tubal ligation and ablasion SMOKING HISTORY: TECHNIQUE: CT scan of the abdomen and pelvis performed without intravenous and without oral contrast using helical scanning technique. Reconstructed coronal and sagittal MPR images reviewed. All images stored on PACS. Automated exposure control was used as a dose optimization technique for this examination. COMPARISON: 09/29/2020 FINDINGS: LOWER CHEST: Calcified right base granuloma unchanged. Lung bases otherwise clear. Uqvl-lc-mrxfwyil cardiomegaly. No effusion. LIVER/BILIARY: Unchanged left lobe irregularity. Otherwise unremarkable. Biliary tree normal in caliber. GALLBLADDER: Unremarkable. SPLEEN: Normal. PANCREAS: Normal. ADRENAL GLANDS: Normal. 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 Moderate renal atrophy. Ureters and bladder appear normal. Right renal allograft unremarkable. GI: Stomach small bowel appear normal. Colon and appendix unremarkable. OTHER ABDOMINAL/PELVIS: Major vascular structures are normal in caliber. No enlarged lymph node or free fluid. Pelvic viscera unremarkable. MSK: Mild disc disease and facet arthropathy. Old coccyx injury. BODY WALL: Unremarkable. IMPRESSION: 1. Slight haziness around the right renal allograft appears similar to priors. No obstruction or other acute abnormality is identified. Sensitivity for pyelonephritis is poor without contrast. 2. Chronic findings as above. THIS IS AN ELECTRONICALLY VERIFIED FINAL REPORT 01/05/2022 1:16 AM - Electronically signed by Davion Whiteside M.D. AR: NICKY Report ID: [id number] Reading Location: [place] [id number] Final Dictated by: Davion Whiteside Dictated DT/TM: 01/05/2022 1:19 am Signed by: Davion Whiteside MD Signed (Electronic Signature): 01/05/2022 1:19 am Patient Care team information Personnel Name: Hermes Ramirez MD Address: [facility] [address]
--- OUTSIDE RECORDS SUMMARY | 2024-03-20 11:45 | XMS_ITS | Continuity of Care Document ---
Author Organization [facility] Address [address] [place] [address] Care Team Providers Care Facility Supervisor Name Role Phone Hermes Ramirez Primary Care Physician [phone] Encounter [facility] [id number] Date(s): 04/05/22 - 04/05/[address] [address] Encounter Diagnosis Headache, chronic migraine without aura(Discharge Diagnosis) - 04/05/22 Discharge Disposition: Home or Self Care Attending [...] Extracted from: Title:Clinical Document Author:Flaquita Angela RN Date:04/05/22 Diagnosis: 1. Headache, facilities painter kavita migraine without aura Comment: Diagnosis: Headache Comment: pt was upset dr khan would not give narcotic i went to give her discharge instructions and she asked for him to come back and talk to her which he did but he did not change his plan she stated she was going to try to have a video visit with her neurologist today she is upset because her transplant team told her to come here and she still has headache pain and stated to dr khan that she would have to go to another ER I advised her that she needs to have her neurologist make a treatment plan for her chronic migraines or get in pain management because the headaches are a chronic problem Immunizations Given and Recorded Vaccine Date Status [...] wheezing, # 6.7 g, 0 Refill(s), Pharmacy: [place], [place], 73, cm, 09/13/21 23:53:00 CDT, Height/Length [...] needed, # 12 cap, 0 Refill(s), Pharmacy: [place], [place], 157, cm, 11/04/21 20:02:00 CDT, Height/Length [...] BID, # 180 tab, 3 Refill(s), Pharmacy: [facility], 157.48, cm, 02/07/22 18:45:00CST, Height/Length Dosing, 72.57, kg, 02/07/22 18:45:00 CASE LINER, Weight Dosing Start Date: 02/13/22 Status: Ordered oseltamivir 30 mg oral capsule 30 mg = 1 cap, Oral, BID, # 10 cap, 0 Refill(s), Pharmacy: [place], [place], 157.48, cm, 03/16/22 18:01:00 CASE LINER, Height/Length Dosing, 77.11, kg, 03/16/22 18:01:00 CASE LINER, Weight Dosing Start Date: 03/16/22 Status: Ordered Pepcid 20 mg oral tablet 20 mg = 1 tab, Oral, BID, 0 Refill(s) Start Date: 09/29/20 Status: Ordered Phenergan 25 mg oral tablet 25 mg = 1 tab, Oral, every 6 hr, PRN as needed for nausea/vomiting, # 20 tab, 0 Refill(s), Pharmacy: [place], [place], 157, cm, 09/29/21 23:03:00 CDT, Height/Length [...] ([place]ula) from Swab collected on 16-MAR-2022 17:54:00 CASE LINER tested positive for COVID-19. Procedures Procedure Date Related Diagnosis Body Site Status Bladder washout 12/14/20 Completed Kidney transplant 05/13/20 Complet ed Tx - Liver transplantation 05/08/20 Completed delivery Complet ed cyst removal from breast Completed Hernia Completed liver transplant Complete d Vital Signs Most recent to oldest [Reference Range]: 1 Temperature Oral [35.8-37.3 Deg C] 36.9 Deg C (04/05/22 3:51 AM) Peripheral Pulse Rate [60-100 bpm] 102 b pm *HI* (04/05/22 3:51 AM) Respiratory Rate [12-24 br/min] 16 br/mi n (04/05/22 3:51 AM) Blood Pressure [90-140/60-90 mmHg] 135/9 5mmHg (04/05/22 3:51 AM) Weight Dosing 74.00 kg (04/05/22 4:04 AM) Weight Estimated 74.00 kg (04/05/22 3:51 AM) Height/Length Dosing 157.000 cm (04/05/22 4:04 AM) Height/Length Estimated 157.000 cm (04/05/22 3:51 AM) Social History Social History Type Response Smoking Status 5-9 cigarettes (betw een 1/4 to 1/2 pack)/day in last 30 days entered on: 05/12/21 Sex Hospital Discharge Instructions Patient Education 04/05/2022 04:26:53 Chronic Migraine Headache, Booy-xp-Gamg Chronic Migraine Headache A migraine headache is [...] these instructions at home: Medicines ??? Take xwiv-mfv-nxunheh and prescription medicines only as told by [...] provider. Document Revised: 04/22/2020 Document Reviewed: 04/22/2020 [email or web address] Patient Education ?? 2021 [employer] Follow Up Care 04/05/2022 03:51:17 With:Follow up with primary care provider Address: When:1 week Comments:Continue other home medications Physician Emergency department Note * Jesus Khan MD: PERFORM Event Display: ED Note Physician Authored Date: [id number] MISHA JACKSON :1980 Age:41 years Sex:Female Visit Date:04/05/2022 Primary Care Physician: Hermes Ramirez MD Basic Information Time Seen: Jesus Khan MD / 04/05/2022 04:16 Chief Complaint pt here with c/o headache like usual headache denies head injury ??has had it for 3 days used fioricet without any relief this is her 5th ER visit in 2022 History Of Present Illness: 41 years old female??comes back again with her chronic migraine headache.?? Patient??comes in??veryfrequently with similar symptoms.?? History of??liver and kidney transplant.?? Always asking for stronger pain medicine??(narcotics). Review of Systems: Constitutional:?No??fevers,?No??chills,?No??sweats Eye:?No??recent visual problems ENT:?No??ear pain,?No??nasal congestion,?No??sore throat Respiratory:?No??shortness of breath,?No??cough Cardiovascular:?No??Chest pain,?No??palpitations,?No??syncope Gastrointestinal:?Nonausea,?No??vomiting,?No??diarrhea Genitourinary:?No??hematuria Clemente/Lymph:?No??bruising tendency,?No??swollen lymph glands Endocrine:?No??excessive thirst,??No??excessive hunger Musculoskeletal:??No??back pain,??No??neck pain,??No??joint pain,??No??muscle pain,??No??decreased range of motion Integumentary:?No??rash,?No??pruritus,?No??abrasions Neurologic: Alert & oriented X 4 Psychiatric:?No??anxiety,?No??depression Physical Exam Vitals & Measurements T:??36.9?C ??(Oral)?? HR:??102??(Peripheral)?? RR:??16?? BP:??135/95?? SpO2:??99%?? HT:??157.000??cm?? WT:??74.00??kg??(Estimated)?? Pain Score:??8?? O2 Therapy:??Room air?? General: Alert [...] appropriate mood and affect Medical Decision Making: Chronic migraine headache.?? Phenergan 25 mg??IM.?? Diphenhydramine 50 mg IM. Procedure No Qualifying Data Assessment/Plan 1.??Headache, chronic migraine without aura??G43.709 Orders: diphenhydrAMINE, 50 mg = 1 mL, IM, Injection, Once, First Dose: 04/05/22 4:23:00 CASE LINER, Stop Date: 04/05/22 4:23:00 CASE LINER, Physician Stop Phenergan, 25 mg = 1 mL, IM, Injection, Once, First Dose: 04/05/22 4:23:00 CASE LINER, Stop Date: 234:23:00 CASE LINER, Physician Stop Follow-up with PCP Patient Discharge Condition Stable Discharge Disposition Discharge home Patient Education Chronic Migraine Headache, Vrgl-mm-Wwqe Follow Up With When Contact Information Follow up with primary care provider Within 1 week Additional Instructions: Continue other home medications Medication Reconciliation Unchanged albuterol (albuterol 90 mcg/inh [...] Attestation Follow-up with PCP Electronically Signed on 04/05/22 04:28 AM Jesus Khan MD Discharge summary * Flaquita Angela RN: PERFORM Event Display: Discharge Note Authored Date: [id number] Diagnosis: 1. Headache, chronic migraine without aura Comment: Diagnosis: Headache Comment: pt was upset dr khan would not give narcotic i went to give her discharge instructions and she asked for him to come back and talk to her which he did but he did not change his plan she stated she was going to try to have a video visit with her neurologist today she is upset because her transplant team told her to come here and she still has headache pain and stated to dr khan that she would have to go to another ER I advised her that she needs to have her neurologist make a treatment plan for her chronic migraines or get in pain management because the headaches are a chronic problem Electronically Signed on 04/05/22 05:36 AM Flaquita Angela RN Patient Care team information Personnel Name: Hermes Ramirez MD Address: Address: [address] [place] [address], [address] [place] [address]
--- OUTSIDE RECORDS SUMMARY | 2024-03-20 11:45 | XMS_ITS | Continuity of Care Document ---
Author Organization [facility] Address [address] [place] [address] Care Team Providers Care Data Base Administrator Name Role Phone Hermes Ramirez Primary Care Physician Encounter [facility] [id number] Date(s): 04/07/23 - 05/02/[address] [address] [place] Discharge Disposition: Home or [...] hepatitis A adult vaccine 7/23/18 Recorded Medications amLODIPine 5 mg oral tablet 5 mg = 1 tab, Oral, Daily, # 30 tab, 11 Refill(s), Pharmacy: [place], [place], 157.48, cm, 01/04/23 15:03:00 CDT, [...] BID, # 60 cap, 11 Refill(s), Pharmacy: [place], [place], 157.48, cm, 01/04/23 15:03:00 CDT, [...] 0 Refill(s), 06/02/23 5:10:00 AM CDT, Pharmacy: [place], [place], 157, cm, 04/29/23 2:33:00 CUSTOMER SOLUTIONS SPECIALIST, Height, 81, kg, 04/29/23 2:41:00 CUSTOMER SOLUTIONS SPECIALIST, Weight Dosing Start Date: 05/03/23 Stop Date: [...] information Care Team Personnel Name: Jessee Jones SITE OPERATIONS MANAGER Position: Physician Member Role: Nurse Practitioner Address: Address: [address] [place] [address] [place] [address] Name: Latoya Marquez SITE OPERATIONS MANAGER Position: Physician Member Role: Nurse Practitioner Address: Address: [address] [place] [address]- Name: Leonila Gonzalez SITE OPERATIONS MANAGER Position: Physician Member Role: Nurse Practitioner Address: Address: [address] [place] [address]- Name: Beth Brandt SITE OPERATIONS MANAGER Position: Physician Member Role: Nurse Practitioner Address: Address: [address] [place] [address] Name: Hermes Ramirez MD Position: Physician Member Role: Informed Provider Address: Address: [address] [place] [address], [address] [place] [address]- Name: Pillo Moe SITE OPERATIONS MANAGER Position: Physician Member Role: Nurse Practitioner Address: Address: [address] [place] [address], [facility] 105 [facility] Care Team Related Persons Name: STACIA JONES Address: Home [address] [place], [place] [id number] Name: ROBYN JAMA
--- OUTSIDE RECORDS SUMMARY | 2024-03-20 11:46 | XMS_ITS | Continuity of Care Document ---
Author Organization [facility] Address [address] [place] [address] Care Team Providers Care Kettle Loader Name Role Phone Hermes Ramirez Primary Care Physician Encounter [facility] MARILUZ [id number] Date(s): 05/14/21 - 05/14/[address] [address] Encounter Diagnosis Headache, chronic migraine without aura(Discharge Diagnosis) - 05/14/21 Chronic migraine without aura, not intractable, without status migrainosus (Final) - Discharge Disposition: Home or Self Care [...] BID, # 180 tab, 3 Refill(s), Pharmacy: [place], [place], 157, cm, 10/22/20 21:26:00 CDT, Height/Length [...] Oral [35.8-37.3 Deg C] 37.0 Deg C (05/14/21 4:26 AM) Peripheral Pulse Rate [60-100 bpm] 85 bp m (05/14/21 4:26 AM) Respiratory Rate [12-24 br/min] 16 br/mi n (05/14/21 4:26 AM) Blood Pressure [90-140/60-90 mmHg] 132/8 7mmHg (05/14/21 4:26 AM) Weight 77.00 kg (05/14/21 4:26 AM) Weight Dosing 77.00 kg (05/14/21 4:38 AM) Height 157.000 cm (05/14/21 4:26 AM) Height/Length Dosing 157.000 cm (05/14/21 4:38 AM) Body Mass Index Estimated 31 (05/14/21 4:26 AM) Social History Social History Type Response Smoking Status 5-9 cigarettes (betw een 1/4 to 1/2 pack)/day in last 30 days entered on: 05/12/21 Sex Hospital Discharge Instructions Patient Education 05/14/2021 04:45:18 Migraine Headache, Uisk-rt-Rawc Migraine Headache A migraine headache is a [...] these instructions at home: Medicines ??? Take rhob-axd-nuamldc and prescription medicines only as told by your doctor. ??? Ask your doctor if the medicine prescribed to you: ??? Requires you to avoid driving or using heavy machinery. ??? Can cause trouble pooping (constipation). You may need to take these steps to prevent or treat trouble pooping: ??? Drink enough fluid to keep your pee (urine) pale yellow. ??? Take wlsg-crg-pcrgbrc or prescription medicines. ??? Eat foods that [...] provider. Document Revised: 06/28/2019 Document Reviewed: 04/18/2019 [employer] Patient Education ?? 2020 [employer] Follow Up Care 05/14/2021 04:26:24 With:Follow up with primary care provider Address: When:5 to 7 days
--- OUTSIDE RECORDS SUMMARY | 2024-03-20 11:46 | XMS_ITS | Continuity of Care Document ---
Author Organization [facility] Address [address] [place] [address] Care Team Providers Care Gate Supervisor Name Role Phone Hermes Ramirez Primary Care Physician [phone] Encounter RANDY [facility]CGRAW [id number] Date(s): 07/25/23 - 10/25/[address] [address] [place] Encounter Diagnosis Dorsalgia, unspecified(Final) - Discharge Disposition: Home or Self Care Attending Physician: Hermes Ramirez MD Admitting Physician: Hermes aRmirez MD Referring Physician: Hermes Ramirez MD Allergies, [...] Daily, # 30 tab, 11 Refill(s), Pharmacy: [place], [place], 157.48, cm, 01/04/23 15:03:00 CDT, Height/Length [...] cap, 2 Refill(s), Pharmacy: [facility]- [facility], 157.48, cm, 07/23/23 17:59:00 CDT, Height, [...] BID, # 60 cap, 11 Refill(s), Pharmacy: [place], 157.48, cm, 01/04/23 15:03:00 CDT, Height/Length Dosing, 81.65, kg, 01/04/23 15:03:00 CDT, Weight Dosing Start Date: 01/11/23 Status: Ordered Nicotrol Inhaler 10 mg inhalation device See Instructions, 6-16 cartriges/day, # 1 EA, 2 Refill(s), Pharmacy: [facility], 157.48, cm, 08/29/23 14:22:00 CDT, Height, 88, kg, 08/29/23 14:27:00 CDT, Weight Dosing Start Date: 08/29/23 Status: Ordered pantoprazole 40 mg oral delayed release tablet 1 tab, Oral, Daily, # 90 tab, 0 Refill(s), [id number], 157.48, cm, 06/07/23 16:07:00 CDT, Height, 89.36, [...] QID, # 360 tab, 0 Refill(s), [id number] 157.48, cm, 08/29/23 14:22:00 CDT, Height, 88, kg, 08/29/23 14:27:00 CDT, Weight Dosing Start Date: 09/05/23 Status: Ordered venlafaxine 37.5 mg oral capsule, extended release 37.5 mg = 1 cap, Oral, Daily, # 90 cap, 0 Refill(s), Pharmacy: [id number] [place], 157.48, cm, 08/29/23 14:22:00 CDT, Height, 88, [...] Use:. Sex Physical therapy Progress note * Bernadine Paz: PERFORM Event Display: Physical Therapy Progress Note Authored Date: [id number] * Bernadine Paz: PERFORM Event Display: Physical Therapy Progress Note Authored Date: [id number] * Annalisa Avila: PERFORM Event Display: Physical Therapy Progress Note Authored Date: [id number] Patient Care team information Care Team Personnel Name: Jessee Jones NP Position: Physician Member Role: Nurse Practitioner Address: Address: [address] [place] [address], [address] Name: Latoya Marquez AGRICULTURAL EDUCATION TEACHER Position: Physician Member Role: Nurse Practitioner Address: Address: [address] [place] [address]- Name: Leonila Gonzalez AGRICULTURAL EDUCATION TEACHER Position: Physician Member Role: Nurse Practitioner Address: Address: [address] [place] [address]- Name: Beth Brandt AGRICULTURAL EDUCATION TEACHER Position: Physician Member Role: Nurse Practitioner Address: Address: [address] [place] [address] Name: Hermes Ramirez MD Position: Physician Member Role: Informed Provider Address: Address: [address] [place] [address], [address] Name: Pillo Moe AGRICULTURAL EDUCATION TEACHER Position: Physician Member Role: Nurse Practitioner Address: Address: [address] [place] [address], [address] [place] Care Team Related Persons Name: STACIA JONES Address: Home [address] [id number] Name: ROBYN JAMA Name: NAIF CHOI Name: MADY CHEN Name: MADY CHEN
--- OUTSIDE RECORDS SUMMARY | 2024-03-20 11:46 | XMS_ITS | Continuity of Care Document ---
Author Organization [facility] Address [address] [place] [address]- Care Team Providers Care Sociocultural Anthropology Professor Name Role Phone Hermes Ramirez Primary Care Physician Encounter RANDY MCGRAW [id number] Date(s): 06/19/23 - 06/19/23 [facility] [address] [place] [address]- Encounter Diagnosis PUD (peptic ulcer disease)(Discharge Diagnosis) - 06/19/23 Migraine headache(Discharge Diagnosis) - 06/19/23 Discharge Disposition: Home or Self Care Attending [...] from: Title:Office Visit Note Author:Philip Ramirez MD Date:06/19/23 1.??PUD (peptic ulcer diseas e)??K27.9 ??Will start Protonix and Carafate. ??She is at high risk of ulcer due to her antirejection medications.?? If not improved with these medications would need referral to GI for EGD. 2.??Migraine headache??G43.909 ??Patient with extremely??complex migraines of several decades duration.?? I do not believe nasal Stadol is a good idea.?? Will refer to headache clinic??at a larger center??to see if??can make some headway on her chronic migraines. Orders: Protonix 40 mg oral delayed release tablet, 40 mg = 1 tab, Oral, Daily, # 30 tab, 0 Refill(s), Pharmacy: [id number], 157.48, cm, 06/07/23 16:07:00 CDT, Height, 89.36, kg, 06/19/23 15:32:00 CDT, Weight Dosing Carafate 1 g oral tablet, 1 g = 1 tab, Oral, QID, # 120 tab, 0 Refill(s), Pharmacy: [facility], 157.48, cm, 06/07/23 16:07:00 CDT, Height, 89.36, kg, 06/19/23 15:32:00 CDT, Weight Dosing Future Appointments Future Scheduled Tests Laboratory* Urinalysis [...] Daily, # 30 tab, 11 Refill(s), Pharmacy: [place], [place], 157.48, cm, 01/04/23 15:03:00 CDT, Height/Length Dosing, 81.65, kg, 01/04/23 15:03:00 CDT, Weight Dosing Start Date: 01/11/23 Status: Ordered aspirin 81 mg oral delayed release tablet 81 mg = 1 tab, Oral, Daily, # 30 tab, 0 Refill(s) Start Date: 04/05/21 Status: Ordered Carafate 1 g oral tablet 1 g = 1 tab, Oral, QID, # 120 tab, 0 Refill(s), [facility]acy: [facility], 157.48, cm, 06/07/23 16:07:00 CDT, Height, 89.36, kg, 06/19/23 15:32:00 CDT, Weight Dosing Start Date: 06/19/23 Status: Ordered gabapentin 300 mg oral capsule [...] BID, # 60 cap, 11 Refill(s), Pharmacy: [place], [place], 157.48, cm, 01/04/23 15:03:00 CDT, Height/Length Dosing, 81.65, kg, 01/04/23 15:03:00 CDT, Weight Dosing Start Date: 01/11/23 Status: Ordered Pepcid 20 mg oral tablet 20 mg = 1 tab, Oral, BID, 0 Refill(s) Start Date: 09/29/20 Status: Ordered predniSONE 5 mg oral delayed release tablet 5 mg = 1 tab, Oral, Daily, # 30 tab, 0 Refill(s) Start Date: 06/19/23 Status: Ordered Protonix 40 mg oral delayed release tablet 40 mg = 1 tab, Oral, Daily, # 30 tab, 0 Refill(s), Pharmacy: [facility] [place], 157.48, cm, 06/07/23 16:07:00 CDT, Height, 89.36, kg, 06/19/23 15:32:00 CDT, Weight Dosing Start Date: 06/19/23 Status: Ordered venlafaxine 37.5 mg oral capsule, [...] [35.8-37.3 Deg C] 37 De g C (06/19/23 3:28 PM) Peripheral Pulse Rate [60-100 bpm] 81 bp m (06/19/23 3:28 PM) Respiratory Rate [12-24 br/min] 18 br/mi n (06/19/23 3:28 PM) Blood Pressure [90-140/60-90 mmHg] 122/6 4mmHg (06/19/23 3:28 PM) Mean Arterial Pressure, Cuff [65-140 mmH g] 83 mmHg (06/19/23 3:28 PM) Weight 89.36 kg (06/19/23 3:28 PM) Weight Measured (lbs) 197.005 lb (06/19/23 3:28 PM) Weight Dosing 89.360 kg (06/19/23 3:28 PM) Social History Social History Type Response Tobacco Current everyday tob acco user Tobacco Use:. 1 Sex 1Pt states that she smokes half a pack a day. Physician Outpatient Note * Hermes Ramirez MD: PERFORM Event Display: Office Clinic Note Physician Authored Date: [id number] MISHA JACKSON :1980 Age:42 years Sex:Female Visit Date:06/19/2023 Primary Care Physician: Hermes Ramirez MD Chief Complaint Pt reports she believes she has a ulcer. Everytime she eats gets heart burn and burning. Pt also wanting to discuss nasal spray for migraines. History of Present Illness MISHA JACKSON??is a??42 Years??old??Female??presenting today with??Chief Complaint: Pt reportsshe believes she has a ulcer. Everytime she eats gets heart burn and burning. Pt also wanting to discuss nasal spray for migraines. (06/19/23 15:28:00).?? She has had??peptic ulcer in the past this feels similar.?? She is not currently taking famotidine or any other medications for this. ??She is on prednisone??chronically as well as cyclosporine for antirejection.?? She continues to struggle with chronic migraines.?? She has been on??all possible options??over the past few decades for her migraines. ??She has seen neurology several times.?? She does [facility] Review of Systems Constitutional:?No??fevers Respiratory:?No??shortness of breath Cardiovascular:?No??Chest pain Gastrointestinal:?No??abd pain Physical Exam Vitals & Measurements T:??37?C ??(Oral)?? HR:??81??(Peripheral)?? RR:??18?? BP:??122/64?? SpO2:??98%?? WT:??89.36??kg?? General: Alert and oriented, well nourished,?No??acute distress Lungs: Clear to auscultation,?Non-labored?? respiration Heart:?Normal? rate,?Regular??rhythm,?No??murmur,?No??gallop Abdomen: Soft, mild epigastric tenderness, non-distended,?Normal? bowel sounds,?No??masses Peripheral Vascular: ??No??edema Assessment/Plan 1.??PUD (peptic ulcer disease)??K27.9 ??Will start Protonix and Carafate. ??She is at high risk of ulcer due to her antirejection medications.?? If not improved with these medications would need referral to GI for EGD. 2.??Migraine headache??G43.909 ??Patient with extremely??complex migraines of several decades duration.?? I do not believe nasal Stadol is a good idea.?? Will refer to headache clinic??at a larger center??to see if??can make some headway on her chronic migraines. Orders: Protonix 40 mg oral delayed release tablet, 40 mg = 1 tab, Oral, Daily, # 30 tab, 0 Refill(s), Pharmacy: [id number][facility], 157.48, cm, 06/07/23 16:07:00 CDT, Height, 89.36, kg, 06/19/23 15:32:00 CDT, Weight Dosing Carafate 1 g oral tablet, 1 g = 1 tab, Oral, QID, # 120 tab, 0 Refill(s), Pharmacy: [id number][facility], 157.48, cm, 06/07/23 16:07:00 CDT, Height, 89.36, kg, 06/19/23 15:32:00 CDT, Weight Dosing Problem List/Past Medical History [...] transplantation (05/08/2020)???Mammogram (2020)??? delivery???[facility] from [facility]???liver transplant Medications amLODIPine 5 mg oral tablet, 5 mg= 1 tab, Oral, Daily, 11 refills aspirin 81 mg oral delayed release tablet, 81 mg= 1 tab, Oral, Daily Carafate 1 g oral tablet, 1 g= 1 tab, Oral, QID gabapentin 300 mg oral capsule Gengraf 25 mg oral capsule levothyroxine 75 mcg (0.075 mg) oral tablet LORazepam 0.5 mg oral tablet metoprolol succinate 100 mg oral capsule, extended release, 100 mg= 1 cap, Oral, BID, 11 refills Pepcid 20 mg oral tablet, 20 mg= 1 tab, Oral, BID predniSONE 5 mg oral delayed release tablet, 5 mg= 1 tab, Oral, Daily Protonix 40 mg oral delayed release tablet, [...] (Tdap) adult/adol 05/25/2012 Recorded Electronically Signed on 06/19/23 03:49 PM Hermes Ramirez MD Patient Care team information Care Team Personnel Name: Jessee Jones PROCESS CONTROL TECH Position: Physician Member Role: Nurse Practitioner Address: Address: [address] [place] [address], [facility] [address] Name: Latoya Marquez PROCESS CONTROL TECH Position: Physician Member Role: Nurse Practitioner Address: Address: [address] [place] [address] Name: Leonila Gonzalez PROCESS CONTROL TECH Position: Physician Member Role: Nurse Practitioner Address: Address: [address] [place] [address] Name: Beth Brandt PROCESS CONTROL TECH Position: Physician Member Role: Nurse Practitioner Address: Address: [address] [place] [address] Name: Hermes Ramirez MD Position: Physician Member Role: Informed Provider Address: Address: [address] [place] [address], [address] [place], [place] [address] Name: Pillo Moe NP Position: Physician Member Role: Nurse Practitioner Address: Address: [address] [place] [address], [address] [facility] Care Team Related Persons Name: STACIA JONES Address: Home [address] [id number] Name: MADY CHEN Name: MADY CHEN
--- OUTSIDE RECORDS SUMMARY | 2024-03-20 11:46 | XMS_ITS | Continuity of Care Document ---
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 Name Role Phone Hermes Ramirez Primary Care Physician Encounter FLORAL PARK MARILUZ [id number] Date(s): 06/29/22 - 06/29/[address] [address] [place] Encounter Diagnosis Right-sided chest wall pain(Discharge Diagnosis) - 06/29/22 [...] Plan Diagnostic Tests Pending * Blood Culture 06/29/22 Future Scheduled Tests Laboratory* ACTH, Plasma LC [...] w/o Contrast Right 06/27/22 Functional Status 06/29/22 Recent Travel History No recent travel Other [...] wheezing, # 6.7 g, 0 Refill(s), Pharmacy: [place], [place], [address], cm, 09/13/21 23:53:00 CDT, Height/Length [...] needed, # 12 cap, 0 Refill(s), Pharmacy: [place], [address], cm, 11/04/21 20:02:00 CDT, Height/Length [...] tab, 3 Refill(s), Pharmacy: [facility], 157.48, cm, 02/07/22 18:45:00CST, Height/Length Dosing, 72.57, kg, 02/07/22 18:45:00 [employer], Weight Dosing Start Date: 02/13/22 Status: Ordered Pepcid 20 mg oral tablet 20 mg = 1 tab, Oral, BID, 0 Refill(s) Start Date: 09/29/20 Status: Ordered Phenergan 25 mg oral tablet 25 mg = 1 tab, Oral, every 6 hr, PRN as needed for nausea/vomiting, # 20 tab, 0 Refill(s), Pharmacy: [place], [place], [address], cm, 09/29/21 23:03:00 CDT, Height/Length [...] Results Laboratory List Name Date .Urine Volume 06/29/22 Urinalysis Microscopic 06/29/22 Urinalysis with Culture if Indicated 06/18 05/12 Amylase Level 06/29/22 BNP 06/29/22 CBC w/ Diff 06/29/22 Cardiac Profile HS 06/29/22 Comprehensive Metabolic Panel 06/29/22 D-Dimer 06/29/22 Lipase Level 06/29/22 Magnesium Level 06/29/22 PT/ PTT 06/29/22 Test Serum Qual 06/29/22 Automated Diff 06/29/22 Most recent to oldest [Reference Range]: 1 WBC [4.0-11.5 K/mcL] 10.3 K/mcL (06/29/22 11:59 AM) RBC [4.20-5.40 x10^6/mcL] 4.21 x10^6/mcL (06/29/22 11:59 AM) Neutro Auto 83.5 % *NA* (06/29/22 11:59 AM) Lymph Auto 10.2 % *NA* (06/29/22 11:59 AM) [place] Auto 5.7 % *NA* (06/29/22 11:59 AM) Basophil Auto 0.1 % *NA* (06/29/22 11:59 AM) Prothrombin Time [9.4-11.4 seconds] 9.9 seconds (06/29/22 11:59 AM) INR 1.0 *NA* (06/29/22 11:59 AM) BUN [7-18 mg/dL] 34 mg/dL *HI* (06/29/22 11:59 AM) UA Color Yellow (06/29/22 12:25 PM) UA WBC [0-5] 0-5 (06/29/22 12:25 PM) Glucose Level [70-110 mg/dL] 156 mg/dL *HI* (06/29/22:59 AM) Potassium Level [3.5-5.1 mmol/L] 3.9 mmo l/L (06/29/22 11:59 AM) Baso Absolute [0.0-0.1 x10^3/mcL] 0.0 x1 0^3/mcL (06/29/22:59 AM) MCV [78.0-100.0 fL] 93.3 fL (06/29/22:59 AM) UA Urobilinogen [Normal mg/dL] Normal mg /dL (06/29/22: PM) UA Bili [Negative mg/dL] Negative mg/dL (06/29/22: PM) UA Ketones [Negative mg/dL] Negative mg/ dL (06/29/22: PM) AST [15-37 unit/L] 9 unit/L *LOW* (06/29/22 AM) Amylase Level [25-115 unit/L] 51 unit/L (06/29/22:59 AM) ALT [12-78 unit/L] 25 unit/L (06/29/22:59 AM) MCHC [29.0-37.5 g/dL] 34.9 g/dL (06/29/22:59 AM) Sodium Level [136-145 mmol/L] 139 mmol/L (06/29/22:59 AM) UA RBC [0-3] 0-3 (06/29/22:25 PM) UA Leuk Est [Negative Guille/mcL] Negative Guille/mcL (06/29/22:25 PM) Lymph Absolute [0.8-5.8 x10^3/mcL] 1.1 x 10^3/mcL (06/29/22:59 AM) UA Nitrite [Negative] Negative (06/29/22:25 PM) UA Glucose [Normal mg/dL] Normal mg/dL (06/29/22:25 PM) Hct [36.0-48.0 %] 39.3 % (4/12/23 11:59 AM) UA Bacteria [None Seen] Many *ABN* (06/29/22 12:25 PM) Lipase Level [73-393 unit/L] 138 unit/L (06/29/22 11:59 AM) Partial Thromboplastin Time [20-30 secon ds] 23 seconds (06/29/22:59 AM) Calcium Level [8.5-10.1 mg/dL] 8.5 mg/dL (06/29/22:59 AM) [place] Absolute [0.1-1.5 x10^3/mcL] 0.6 x1 0^3/mcL (06/29/22 11:59 AM) Albumin Level [3.4-5.0 g/dL] 3.2 g/dL *LOW* (06/29/22:59 AM) Protein Total [6.4-8.2 g/dL] 6.7 g/dL (06/29/22:59 AM) UA Protein [Negative mg/dL] Negative mg/ dL (06/29/22: PM) MCH [27.0-34.0 pg] 32.5 pg (06/29/22:59 AM) Magnesium Level [1.8-2.4 mg/dL] 1.4 mg/d L *LOW* (06/29/22 11:59 AM) Neutro Absolute [1.5-8.1 x10^3/mcL] 8.6 x10^3/mcL *HI* (06/29/22 11:59 AM) Bilirubin Total [0.0-1.0 mg/dL] 0.4 mg/d L (06/29/22:59 AM) Hgb [12.0-16.0 g/dL] 13.7 g/dL (06/29/22 11:59 AM) Alk Phos [46-130 unit/L] 158 unit/L *HI* (06/29/22:59 AM) UA Blood [Negative Rocael/mcL] Negative Rocael /mcL (06/29/22 12:25 PM) MPV [6.0-10.0 fL] 10.9 fL *HI* (06/29/22:59 AM) UA Mucous [None Seen] Many *ABN* (06/29/22 12:25 PM) UA Spec Grav 1.015 (06/29/22 12:25 PM) Platelets [150-450 K/mcL] 129 K/mcL *LOW* (06/29/22 11:59 AM) CO2 [21-32 mmol/L] 18 mmol/L *LOW* (06/29/22 11:59 AM) Eos Absolute [0.0-0.5 x10^3/mcL] 0.0 x10 ^3/mcL (06/29/22 11:59 AM) UA Squam Epithelial [None Seen] Many *ABN* (06/29/22:25 PM) UA pH [5.0-9.0] 5.0 (06/29/22: PM) eGFR Non-AA 38 *NA* (06/29/22 11:59 AM) eGFR AA 46 *NA* (06/29/22 11:59 AM) BNP [5-100 pg/mL] 18 pg/mL (06/29/22 11:59 AM) UA Appear [Clear] Hazy (06/29/22:25 PM) Chloride Level [97-107 mmol/L] 109 mmol/ L *HI* (06/29/22 11:59 AM) RDW-CV [11.5-15.0 %] 14.4 % (06/29/22 11:59 AM) hCG Qual Serum [Negative] Negative (06/29/22 11:59 AM) Imm Gran Absolute [0.0-0.1 x10^3/mcL] 0. 0 x10^3/mcL (06/29/22 11:59 AM) Imm Gran Auto 0.4 % *NA* (06/29/22 11:59 AM) NRBC Auto 0.0 % *NA* (06/29/22 11:59 AM) NRBC Absolute [0.0-0.0 x10^3/mcL] 0.0 x1 0^3/mcL (06/29/22 11:59 AM) UA Culture Ind?. Not Indicated (06/29/22 12:25 PM) Urine Srce Clean Catch (06/29/22 12:25 PM) UA Amorph Many (06/29/22: PM) Urine Volume 12 mL (06/29/22 12:25 PM) Creatinine Level [0.60-1.30 mg/dL] 1.59 mg/dL *HI* (06/29/22 11:59 AM) Troponin-I HS [0-51 ng/L] 4 ng/L (06/29/22 11:59 AM) Anion Gap [5-15 mmol/L] 16 mmol/L *HI* (06/29/22 11:59 AM) D Dimer, (Quant.) [105-400 ng/mL DDU] 27 5 ng/mL DDU (06/29/22 11:59 AM) Eos, Auto 0.1 % *NA* (06/29/22 11:59 AM) UA Yeast [None Seen] None Seen (06/29/22 12:25 PM) CK [21-232 unit/L] 20 unit/L *LOW* (06/29/22 11:59 AM) Radiology Reports * Exam Date Time Procedure Performing Provider Status 06/29/22 12:34 PM XR Chest 2 Views Mona Joaquin RT (R)(CT)(ARRT); Auth (Verified) Notes: (XR Chest 2 Views) Reason For Exam: Chest Pain XR Chest 2 Views EXAM DESCRIPTION: XR Chest 2 Views REASON FOR STUDY: Patient c/o RUQ pain x 2 days. Comparisons: 06/18/2022 cxr PREVIOUS SURGERY: liver transplant SMOKING HISTORY: 1/2 ppd x 25 yrs TECHNIQUE: Frontal and lateral radiographic views of the chest acquired. COMPARISON: 06/18/2022 FINDINGS: The heart size is upper limits of normal. The pulmonary vasculature and mediastinum are grossly stable. There is no definite evidence of a pneumothorax. There is no definite evidence of focal consolidation or pleural effusion. The osseous structures are acutely grossly stable. IMPRESSION: No acute cardiopulmonary abnormality. THIS IS AN ELECTRONICALLY VERIFIED FINAL REPORT 06/29/2022 12:39 PM - Electronically signed by Malu Chapa D.O. PS: PS Report ID: [id number] Reading Location: [id number] Final Dictated by: Malu Chapa DO Dictated DT/TM: 06/29/2022 12:42 pm Signed by: Chapa, Parvish P DO Signed (Electronic Signature): 06/29/2022 12:42 pm Vital Signs Most recent to oldest [Reference Range]: 1 2 3 Temperature Oral [35.8-37.3 Deg C] 37.1 Deg C (06/29/22 11:20 AM) Peripheral Pulse Rate [60-100 bpm] 86 bpm (06/29/22 12:56 PM) 81 bpm (06/29/22 12:00 PM) 85 bpm (06/29/22 11:40 AM) Respiratory Rate [12-24 br/min] 20 br/min (06/29/22 12:56 PM) 20 br/min (06/29/22 12:00 PM) 20 br/min (06/29/22 11:40 AM) Blood Pressure [90-140/60-90 mmHg] 126/76mmHg (06/29/22 12:56 PM) 149/82mmHg *HI* (06/29/22 12:00 PM) 122/77mmHg (06/29/22 11:40 AM) Weight 81.65 kg (06/29/22 11:20 AM) Weight Dosing 81.65 kg (06/29/22 11:24 AM) Height 157.480 cm (06/29/22 11:20 AM) Height/Length Dosing 157.480 cm (06/29/22 11:24 AM) Body Mass Index 33.000 kg/m2 (06/29/22 11:20 AM) Social History Social History Type Response Tobacco Current everyday tob acco user Tobacco Use:. Sex Hospital Discharge Instructions Patient Education 06/29/2022 12:47:18 Chest Wall Pain, [id number] Chest Wall Pain Chest wall pain is [...] safe for you. General instructions ??? Take qyfr-rdm-fxfmltl and prescription medicines only as told by [...] provider. Document Revised: 06/08/2021 Document Reviewed: 05/21/2021 [employer] Patient Education ?? 2021 [employer] Follow Up Care 06/29/2022 11:20:21 With:Follow up with specialist Address: When:3 to 5 days Comments:Follow-up with your transplant team as scheduled With:Follow up with primary care provider Address: When:5 to 7 days Physician Emergency department Note * Felicia Roach MD: PERFORM Event Display: ED Note Physician Authored Date: [id number] MISHA JACKSON :1980 Age:41 years Sex:Female Visit Date:06/29/2022 Primary Care Physician: Hermes Ramirez MD Basic Information Time Seen: Felicia Roach MD / 06/29/2022 11:39 Chief Complaint COMPLAINING OF PAIN RUQ WHERE MY LIVER IS ??ONSET YESTERDAY. ??STATES IS CONCERNED ABOUT REJECTION. ??RATES PAIN 4 TO 5 ON 0 TO 10 SCALE. ?? PREHOSPITAL SEEN IN ED 0230 AND WAS GIVEN PAIN MEDICATION. History Of Present Illness: 41-year-old female??who frequents the ER for multiple pain complaints??and is seen in the ER??almost twice a week, presents??with a right??sided abdominal pain and right chest pain??constant for the past 2 days.?? 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 ??No associated cough or shortness of breath. ??No fever or chills.?? Pain is mild 4/10.?? She was seen in the ED 7 hours ago for the same discomfort??and was given a dose of morphine. ??Vital signs of been stable. ??No nausea vomiting or diarrhea. ??No cough. ??No hemoptysis. ??No problems urinating.?? No flank pain. ??No lower abdominal pain or discomfort Review of Systems: Constitutional:?No??fevers,?No??chills,?No??sweats Eye:?No??recent visual problems ENT:?No??ear pain,?No??nasal congestion,?No??sore throat Respiratory:?No??shortness of breath,?No??cough Cardiovascular:?Positive for??Chest pain,?No??palpitations,?No??syncope. ??A constant??right-sided chest pain for 2 days associated with some right upper quadrant discomfort. Gastrointestinal:?Nonausea,?No??vomiting,?No??diarrhea Genitourinary:?No??hematuria Clemente/Lymph:?No??bruising tendency,?No??swollen lymph glands Endocrine:?No??excessive thirst,??No??excessive hunger Musculoskeletal:??No??back pain,??No??neck pain,??No??joint pain,??No??muscle pain,??No??decreased range of motion Integumentary:?No??rash,?No??pruritus,?No??abrasions Neurologic: Alert & oriented X 4 Psychiatric:?No??anxiety,?No??depression Physical Exam Vitals & Measurements T:??37.1?C ??(Oral)?? HR:??91??(Peripheral)?? RR:??20?? BP:??159/88?? SpO2:??99%?? HT:??157.480??cm?? WT:??81.65??kg?? BMI:??33.000?? Pain Score:??5?? O2 Therapy:??Room air?? General: Alert and oriented, well nourished,?No??acute distress. ??Blood pressure 149/82.?? Sinus rhythm with a rate of 89. ??Sats 97% on room air??not ill looking Eye: PERRL, EOMI,?Normal?conjunctiva HENT: Normocephalic, clear tympanic membranes,?Normal? hearing, moist oral mucosa,?No??scleral icterus,?No??sinus tenderness Neck: Supple, non-tender,?No??carotid bruits,?No??JVD,?No??lymphadenopathy Lungs:??Clear to auscultation?? Respiration:??Non-Labored Heart:?Normal? rate,?Regular??rhythm,?No??murmur,?No??gallop,?No??edema Breast:?No??lumps,?No??bumps,?No??scars,?Normal? nipples. ??Reproducible tenderness on the right lateral ribs.?? No crepitus bruising or swelling. Abdomen: Soft, non-tender, non-distended,?Normal? bowel sounds,?No??masses. ??Benign abdominal exam. ??No right upper quadrant tenderness. ??No guarding or rebound. ??The lower abdomen is completely soft and nontender Musculoskeletal:?Normal? range of motion and strength,?No??tenderness,?No??swelling Skin: Skin is warm, dry and pink,?No??rashes,?No??lesions Neurologic: Awake, alert and oriented X4, CN II-XII intact Psychiatric: Cooperative, appropriate mood and affect Medical Decision Making: CBC showed normal WBC??and normal hemoglobin hematocrit.?? Mild stable thrombocytopenia with a platelet count of 129,000, unchanged from previous BNP is less than 100. Serum test was negative. D-dimer was low and within normal limits Comprehensive metabolic panel showed chronic kidney disease with a GFR of 38.?? Her GFR usually runs in the low 40s Magnesium low 1.4,??she has chronic hypomagnesemia.?? Her last??magnesium level was 1.5 Mild elevation of alk phosphatase??which is actually a lot better than her previous alkaline phosphatase of more than 400.?? Today's alkaline phosphatase was 158 Bilirubin was normal High sensitive troponin was negative EKG was unremarkable with nonspecific changes which is unchanged??from her last EKG of March 2021 Her transplant team??from [place]??was updated by me over the phone??time??1246 Procedure No Qualifying Data Assessment/Plan 1.??Right-sided chest wall pain??R07.89 Work-up was negative. Pain easily reproducible with the??palpation Patient will be discharged to home??to take lyzk-ehu-qddjhpe Tylenol Extra Strength 1 tablet every 4 hours. Follow-up with your PCP and transplant team Return if with problems or concerns Orders: Blood Culture, Peripheral Blood, Routine collect, RT - Routine, 06/29/22 11:43:00 CDT, Once, Lab Collect, Print Label Cardiac Monitoring, 06/29/22 11:42:00 CDT, Once, Stop date 06/29/22 11:42:00 CDT Pulse Oximetry, 06/29/22 11:42:00 CDT, Once, Stop date 06/29/22 11:42:00 CDT Troponin-I High Sensitivity, Blood, Stat, 06/29/22 13:42:00 CDT, Once, Lab Collect Urinalysis with Culture if Indicated, Urine, Stat Collect, 06/29/22 11:43:00 CDT, Once, Nurse collect, Print Label Vital Signs, 06/29/22 11:42:00 CDT, Once, Stop date 06/29/22 11:42:00 CDT, q15 min XR Chest 2 Views, 06/29/22 11:42:00 CDT, Stat, Reason: Chest Pain, Transport Mode: Wheelchair Patient Discharge Condition Stable Discharge Disposition Discharge to home Patient Education Chest Wall Pain, Hntm-ks-Rifp Follow Up With When Contact Information Follow up with specialist Within 3 to 5 days Additional Instructions: Follow-up with your transplant team as scheduled Follow up with primary care provider Within [...] Benadryl, 50 mg, Slow IV Push morphine, 4 mg, Slow IV Push Allergies NSAIDs Toradol??(Kidney failure as a complication of care) aspirin??(Medication interaction) azithromycin??(Unknown) codeine??(Unknown, Itching) gentamicin erythromycin??(Medication interaction) Social History Alcohol Never Electronic Cigarette/Vaping Electronic Cigarette Use: Never. Substance Use Never Tobacco Current everyday tobacco user Tobacco Use:. Family History Cancer: Mother. Diagnostic Results XR Chest 2 Views 06/29/2022 12:42 CDT XR Chest 2 Views ?? 06/29/22 12:38:45 ? EXAM DESCRIPTION: XR Chest 2 Views ?? REASON FOR STUDY: Patient c/o RUQ pain x 2 days. ?? Comparisons: 06/18/2022 cxr ? PREVIOUS SURGERY: liver transplant ? SMOKING HISTORY: 1/2 ppd x 25 yrs ? TECHNIQUE: Frontal and lateral radiographic views of the chest acquired. ?? COMPARISON: 06/18/2022 ?? FINDINGS: The heart size is upper limits of normal. The pulmonary vasculature and mediastinum are grossly stable. There is no definite evidence of a pneumothorax. There is no definite evidence of focal consolidation or pleural effusion. ?? The osseous structures are acutely grossly stable. ?? IMPRESSION: No acute cardiopulmonary abnormality. ?? THIS IS AN ELECTRONICALLY VERIFIED FINAL REPORT 06/29/2022 12:39 PM_Electronically signed by Malu Chapa D.O. ?? PS: PS ?? Report ID: [id number] Reading Location: [id number] ?? Signed By: Malu Chapa DO ECG EKG reviewed by me. ??Normal sinus rhythm.?? Nonspecific ST changes.?? EKG is unchanged from EKG ofMarch 2021 Lab Results CBC and Differential?? LATEST RESULTS?? HISTORICAL RESULTS?? WBC?? 06/29/22 11:59?? 10.3?? 05/29/22?? 6.0?? RBC?? 06/29/22 11:59?? 4.21?? 05/29/22?? 3.79 ??Low?? Hgb?? 06/29/22 11:59?? 13.7?? 05/29/22?? 11.8 ??Low?? Hct?? 06/29/22 11:59?? 39.3?? 05/29/22?? 35.2 ??Low?? MCV?? 06/29/22 11:59?? 93.3?? 05/29/22?? 92.9?? MCH?? 06/29/22 11:59?? 32.5?? 05/29/22?? 31.1?? MCHC?? 06/29/22 11:59?? 34.9?? 05/29/22?? 33.5?? RDW-CV?? 06/29/22 11:59?? 14.4?? 05/29/22?? 12.4?? Platelets?? 06/29/22 11:59?? 129 ??Low?? 05/29/22?? 132 ??Low?? MPV?? 06/29/22 11:59?? 10.9 ??High?? 05/29/22?? 9.9?? Neutro Auto?? 06/29/22 11:59?? 83.5?? 05/29/22?? 70.5?? Lymph Auto?? 06/29/22 11:59?? 10.2?? 05/29/22?? 19.7?? [place] Auto?? 06/29/22 11:59?? 5.7?? 05/29/22?? 6.8?? Eos, Auto?? 06/29/22 11:59?? 0.1?? 05/29/22?? 2.5?? Basophil Auto?? 06/29/22 11:59?? 0.1?? 05/29/22?? 0.2?? Imm Gran Auto?? 06/29/22 11:59?? 0.4?? 05/29/22?? 0.3?? NRBC Auto?? 06/29/22 11:59?? 0.0?? 05/29/22?? 0.0?? Neutro Absolute?? 06/29/22 11:59?? 8.6 ??High?? 05/29/22?? 4.2?? Lymph Absolute?? 06/29/22 11:59?? 1.1?? 05/29/22?? 1.2?? [place] Absolute?? 06/29/22 11:59?? 0.6?? 05/29/22?? 0.4?? Eos Absolute?? 06/29/22 11:59?? 0.0?? 05/29/22?? 0.2?? Baso Absolute?? 06/29/22 11:59?? 0.0?? 05/29/22?? 0.0?? Imm Gran Absolute?? 06/29/22 11:59?? 0.0?? 05/29/22?? 0.0?? NRBC Absolute?? 06/29/22 11:59?? 0.0?? 05/29/22?? 0.0? Coagulation?? LATEST RESULTS?? Prothrombin Time?? 06/29/22 11:59?? 9.9?? INR?? 06/29/22 11:59?? 1.0?? Partial Thromboplastin Time?? 06/29/22 11:59?? 23?? D Dimer, (Quant.)?? 06/29/22 11:59?? 275? Routine Chemistry?? LATEST RESULTS?? HISTORICAL RESULTS?? Sodium Level?? 06/29/22 11:59?? 139?? 05/29/22?? 142?? Potassium Level?? 06/29/22 11:59?? 3.9?? 05/29/22?? 3.7?? Chloride Level?? 06/29/22 11:59?? 109 ??High?? 05/29/22?? 109 ??High?? CO2?? 06/29/22 11:59?? 18 ??Low?? 05/29/22?? 24?? Alk Phos?? 06/29/22 11:59?? 158 ??High?? 05/29/22?? 440 ??High?? AST?? 06/29/22 11:59?? 9 ??Low?? 05/29/22?? 36?? ALT?? 06/29/22 11:59?? 25?? 05/29/22?? 115 ??High?? BUN?? 06/29/22 11:59?? 34 ??High?? 05/29/22?? 20 ??High?? Glucose Level?? 06/29/22 11:59?? 156 ??High?? 05/29/22?? 112 ??High?? Creatinine Level?? 06/29/22 11:59?? 1.59 ??High?? 05/29/22?? 1.45 ??High?? eGFR AA?? 06/29/22 11:59?? 46?? 05/29/22?? 52?? eGFR Non-AA?? 06/29/22 11:59?? 38?? 05/29/22?? 43?? Calcium Level?? 06/29/22 11:59?? 8.5?? 05/29/22?? 8.8?? Protein Total?? 06/29/22 11:59?? 6.7?? 05/29/22?? 6.9?? Albumin Level?? 06/29/22 11:59?? 3.2 ??Low?? 05/29/22?? 3.1 ??Low?? Bilirubin Total?? 06/29/22 11:59?? 0.4?? 05/29/22?? 0.3?? Anion Gap?? 06/29/22 11:59?? 16 ??High?? 05/29/22?? 13?? Amylase Level?? 06/29/22 11:59?? 51?? 05/29/22?? 34?? Lipase Level?? 06/29/22 11:59?? 138?? 05/29/22?? 61 ??Low?? Magnesium Level?? 06/29/22 11:59?? 1.4 ??Low?? 05/15/22?? 1.5 ??Low? Cardiac Isoenzymes?? LATEST RESULTS?? HISTORICAL RESULTS?? CK?? 06/29/22 11:59?? 20 ??Low?? 04/11/21?? 62?? BNP?? 06/29/22 11:59?? 18?? 06/23/21?? 16?? Troponin-I HS?? 06/29/22 11:59?? 4? Testing?? LATEST RESULTS?? HISTORICAL RESULTS?? hCG Qual Serum?? 06/29/22 11:59?? Negative?? 02/16/22?? Negative? UA Macroscopic?? LATEST RESULTS?? HISTORICAL RESULTS?? Urine Srce?? 06/29/22 12:25?? Clean Catch?? 05/29/22?? Clean Catch?? Urine Volume?? 06/29/22 12:25?? 12?? 05/29/22?? 12?? UA Color?? 06/29/22 12:25?? Yellow?? 05/29/22?? Yellow?? UA Appear?? 06/29/22 12:25?? Hazy?? 05/29/22?? Clear?? UA Glucose?? 06/29/22 12:25?? Normal?? 05/29/22?? Normal?? UA Bili?? 06/29/22 12:25?? Negative?? 05/29/22?? Negative?? UA Ketones?? 06/29/22 12:25?? Negative?? 05/29/22?? Negative?? UA Spec Grav?? 06/29/22 12:25?? 1.015?? 05/29/22?? 1.020?? UA Blood?? 06/29/22 12:25?? Negative?? 05/29/22?? Negative?? UA pH?? 06/29/22 12:25?? 5.0?? 05/29/22?? 6.0?? UA Protein?? 06/29/22 12:25?? Negative?? 05/29/22?? Negative?? UA Urobilinogen?? 06/29/22 12:25?? Normal?? 05/29/22?? Normal?? UA Nitrite?? 06/29/22 12:25?? Negative?? 05/29/22?? Negative?? UA Leuk Est?? 06/29/22 12:25?? Negative?? 05/29/22?? Negative?? UA Culture Ind?.?? 06/29/22 12:25?? Not Indicated?? 05/29/22?? Not Indicated? UA Microscopic?? LATEST RESULTS?? HISTORICAL RESULTS?? UA WBC?? 06/29/22 12:25?? 0-5?? 05/29/22?? None?? UA RBC?? 06/29/22 12:25?? 0-3?? 05/29/22?? None?? UA Squam Epithelial?? 06/29/22 12:25?? Many Abnormal?? 05/29/22?? Occasional?? UA Yeast?? 06/29/22 12:25?? None Seen?? 05/29/22?? None Seen?? UA Mucous?? 06/29/22 12:25?? Many Abnormal?? 05/29/22?? None Seen?? UA Bacteria?? 06/29/22 12:25?? Many Abnormal?? 05/29/22?? Occasional Abnormal?? UA Amorph?? 06/29/22 12:25?? Many?? 02/16/22?? Many? Attending Attestation Stable Electronically Signed on 06/29/22 12:48 PM Felicia Roach MD XR Chest 2 Views * Malu Chapa DO: VERIFY, VERIFY, PERFORM Event Display: Report Authored Date: [id number] EXAM DESCRIPTION: XR Chest 2 Views REASON FOR STUDY: Patient c/o RUQ pain x 2 days. Comparisons: 06/18/2022 cxr PREVIOUS SURGERY: liver transplant SMOKING HISTORY: 1/2 ppd x 25 yrs TECHNIQUE: Frontal and lateral radiographic views of the chest acquired. COMPARISON: 06/18/2022 FINDINGS: The heart size is upper limits of normal. The pulmonary vasculature and mediastinum are grossly stable. There is no definite evidence of a pneumothorax. There is no definite evidence of focal consolidation or pleural effusion. The osseous structures are acutely grossly stable. IMPRESSION: No acute cardiopulmonary abnormality. THIS IS AN ELECTRONICALLY VERIFIED FINAL REPORT 06/29/2022 12:39 PM - Electronically signed by Malu Chapa D.O. PS: PS Report ID: [id number] Reading Location: [place] [id number] Final Dictated by: Malu Chapa DO Dictated DT/TM: 06/29/2022 12:42 pm Signed by: Malu Chapa DO Signed (Electronic Signature): 06/29/2022 12:42 pm Patient Care team information Care Team Personnel Name: Jessee Jones [employer] Position: Physician Member Role: Nurse Practitioner Address: Address: [address] [place] [address], [address] Name: Latoya Marquez [employer] Position: Physician Member Role: Nurse Practitioner Address: Address: [address] [place] [address]- Name: Leonila Gonzalez [employer] Position: Physician Member Role: Nurse Practitioner Address: Address: [address] [place] [address]- Name: Beth Brandt [employer] Position: Physician Member Role: Nurse Practitioner Address: Address: [address] [place] [address] [place] [address] Name: Hermes Ramirez MD Position: Physician Member Role: Informed Provider Address: Address: [address] [facility], [address] [place] [address]- Name: Pillo Moe [employer] Position: Physician Member Role: Nurse Practitioner Address: Address: [address] [facility] [facility] Name: Felicia Roach MD Position: Physician Member Role: Admitting Physician Address: Address: [address] [place] [id number]- Name: Li Guan RN Position: Nurse Member Role: Registered Nurse Care Team Related Persons Name: STACIA JONES Address: Home [address] [place], [place] [id number] Name: ROBYN JAMA Address: Home
--- OUTSIDE RECORDS SUMMARY | 2024-03-20 11:46 | XMS_ITS | Continuity of Care Document ---
Author Organization [facility] Address [address] [place] [address] Care Team Providers Care Prototype Engineer Manager Name Role Phone Hermes Ramirez Primary Care Physician Encounter TEMECULA MARILUZ [id number] Date(s): 05/19/21 - 05/19/[address] [address] Encounter Diagnosis Migraine(Discharge Diagnosis) - 05/19/21 Dysmenorrhea(Discharge Diagnosis) - 05/19/21 Discharge Disposition: Home or Self Care Attending Physician: Felicia Roach MD Admitting Physician: Felicia Roach MD Allergies, Adverse Reactions, Alerts Substance Reaction Severity Status gentamicin Moderate Active erythromycin Medication interaction Activ e aspirin Medication interaction Activ e Toradol Kidney failure as a complication of care Active NSAIDs Severe Active Assessment and Plan Future Appointments Functional Status 05/19/21 Recent Travel History No recent travel Other [...] BID, # 180 tab, 3 Refill(s), Pharmacy: [place], [place], [address], cm, 10/22/20 21:26:00 CDT, Height/Length [...] Oral [35.8-37.3 Deg C] 37.3 Deg C (05/19/21 4:20 PM) Peripheral Pulse Rate [60-100 bpm] 112 b pm *HI* (05/19/21 4:20 PM) Respiratory Rate [12-24 br/min] 18 br/mi n (05/19/21 4:20 PM) Blood Pressure [90-140/60-90 mmHg] 143/8 6mmHg *HI* (05/19/21 4:20 PM) Weight Dosing 77.11 kg (05/19/21 4:43 PM) Weight Estimated 77.11 kg (05/19/21 4:20 PM) Height/Length Dosing 157.480 cm (05/19/21 4:43 PM) Body Mass Index Estimated 31 (05/19/21 4:20 PM) Height/Length Estimated 157.480 cm (05/19/21 4:20 PM) Social History Social History Type Response Smoking Status 5-9 cigarettes (betw een 1/4 to 1/2 pack)/day in last 30 days entered on: 05/12/21 Sex Hospital Discharge Instructions Patient Education 05/19/2021 17:02:23 Dysmenorrhea, Jcrc-if-Thom Dysmenorrhea Dysmenorrhea means painful cramps during your period (menstrual period). You will have pain in yourlower belly (abdomen). The pain is caused by the tightening (adela) of the muscles of the womb (uterus). The pain may be mild or very bad. With this condition, you may: ??? Have a headache. ??? Feel sick to your stomach (nauseous). ??? Throw up (vomit). ??? Have lower back pain. Follow these instructions at home: Helping pain and cramping ??? Put heat on your lower back or belly when you have pain or cramps. Use the heat source that your doctor tells you to use. ??? Place a towel between your skin and the heat. ??? Leave the heat on for 20???30 minutes. ??? Remove the heat if your skin turns bright red. This is especially important if you cannot feel pain, heat, or cold. ??? Do not have a heating pad on during sleep. ??? Do aerobic exercises. These include walking, swimming, or biking. These may help with cramps. ??? Massage your lower back or belly. This may help lessen pain. General instructions ??? Take mmbs-axw-vvgyoxe and prescription medicines only as told by your doctor. ??? Do not drive or use heavy machinery while taking prescription pain medicine. ??? Avoid alcohol and caffeine during and right before your period. These can make cramps worse. ??? Do not use any products that have nicotine or tobacco. These include cigarettes and e-cigarettes. If you need help quitting, ask your doctor. ??? Keep all follow-up visits as told by your doctor. This is important. Contact a doctor if: ??? You have pain that gets worse. ??? You have pain that does not get better with medicine. ??? You have pain during sex. ??? You feel sick to your stomach or you throw up during your period, and medicine does not help. Get help right away if: ??? You pass out (faint). Summary ??? Dysmenorrhea means painful cramps during your period (menstrual period). ??? Put heat on your lower back or belly when you have pain or cramps. ??? Do exercises like walking, swimming, or biking to help with cramps. ??? Contact a doctor if you have pain during sex. This information is not intended to replace advice given to you by your health care provider. Make sure you discuss any questions you have with your health care provider. Document Revised: 02/16/2018 Document Reviewed: 03/23/2017 [employer] Patient Education ?? 2020 [employer] 05/19/2021 17:02:19 Migraine Headache, Owxf-lq-Vhdn Migraine Headache A migraine headache is a [...] these instructions at home: Medicines ??? Take bgcf-wbt-ippemty and prescription medicines only as told by your doctor. ??? Ask your doctor if the medicine prescribed to you: ??? Requires you to avoid driving or using heavy machinery. ??? Can cause trouble pooping (constipation). You may need to take these steps to prevent or treat trouble pooping: ??? Drink enough fluid to keep your pee (urine) pale yellow. ??? Take qpjw-fcl-fzxydky or prescription medicines. ??? Eat foods that [...] provider. Document Revised: 06/28/2019 Document Reviewed: 04/18/2019 [employer] Patient Education ?? 2020 [employer] Follow Up Care 05/19/2021 16:20:36 With:Follow up with primary care provider Address: When:5 to 7 days Care Team Personnel Name: Hermes Ramirez MD Address: [facility], [address] [place] [address]-
--- OUTSIDE RECORDS SUMMARY | 2024-03-20 11:46 | XMS_ITS | Continuity of Care Document ---
Author Organization [facility] Address [address] [place] [address] Care Team Providers Care Bowl Sander Name Role Phone Hermes Ramirez Primary Care Physician Encounter ONOFREEver MCGRAW [id number] Date(s): 08/07/22 - 08/07/[address] [address] Encounter Diagnosis Migraine(Discharge Diagnosis) - 08/07/22 Discharge Disposition: Home or Self Care Attending [...] # 6.7 g, 0 Refill(s), Pharmacy: [place], [place], [address], cm, 09/13/21 23:53:00 CDT, Height/Length [...] # 12 cap, 0 Refill(s), Pharmacy: [place], [place], [address], cm, 11/04/21 20:02:00 CDT, Height/Length [...] 18:45:00CST, Height/Length Dosing, 72.57, kg, 02/07/22 18:45:00 FOOD MIXER ASSEMBLER, Weight Dosing Start Date: 02/13/22 Status: Ordered Pepcid 20 mg oral tablet 20 mg = 1 tab, Oral, BID, 0 Refill(s) Start Date: 09/29/20 Status: Ordered Phenergan 25 mg oral tablet 25 mg = 1 tab, Oral, every 6 hr, PRN as needed for nausea/vomiting, # 20 tab, 0 Refill(s), Pharmacy: [facility] [place], [place], [address], cm, 09/29/21 23:03:00 CDT, Height/Length [...] Oral [35.8-37.3 Deg C] 37.2 Deg C (08/07/22 1:28 PM) Peripheral Pulse Rate [60-100 bpm] 78 bp m (08/07/22 1:28 PM) Respiratory Rate [12-24 br/min] 20 br/mi n (08/07/22 1:28 PM) Blood Pressure [90-140/60-90 mmHg] 123/7 6mmHg (08/07/22 1:28 PM) Weight Dosing 180.00 kg (08/07/22 2:32 PM) Weight Estimated 180.00 kg (08/07/22 1:28 PM) Height/Length Dosing 157.000 cm (08/07/22 2:32 PM) Height/Length Estimated 157.000 cm (08/07/22 1:28 PM) Social History Social History Type Response Tobacco Current everyday tob acco user Tobacco Use:. Sex Hospital Discharge Instructions Patient Education 08/07/2022 13:59:36 Migraine Headache Migraine Headache A migraine headache [...] these instructions at home: Medicines ??? Take wbld-njr-knsarkj and prescription medicines only as told by your health care provider. ??? Ask your health care provider if the medicine prescribed to you: ??? Requires you to avoid driving or using heavy machinery. ??? Can cause constipation. You may need to take these actions to prevent or treat constipation: ??? Drink enough fluid to keep your urine pale yellow. ??? Take tbuc-gct-idznktf or prescription medicines. ??? Eat foods that [...] provider. Document Revised: 06/28/2019 Document Reviewed: 04/18/2019 [employer] Patient Education ?? 2021 [employer]. Follow Up Care 08/07/2022 13:28:41 With:Hermes Ramirez MD Address: [address] [place] [address] [place], [place] [id number]- When:1 month Physician Emergency department Note * Mike Malik MD: PERFORM Event Display: ED Note Physician Authored Date: [id number] MISHA JACKSON :1980 Age:41 years Sex:Female Visit Date:08/07/2022 Primary Care Physician: Hermes Ramirez MD Basic Information Time Seen: Mike Malik MD / 08/07/2022 13:43 Chief Complaint migraine History Of Present Illness: 41 yo with cronic migraines, s/p liver tplant presents with migraines. She is well known to me frommult prev visits. She is seeing neurology who did botox injections without relief. She says feels like her usual migraines. C/o sharp stabbing retroorbital pains. Review of Systems: Constitutional:?No??fevers,?No??chills,?No??sweats Eye:?No??recent visual problems [...] affect Procedure No Qualifying Data Assessment/Plan 1.??Migraine??G43.909 cont outpatient fioricet and f/u with primary care doctor. Orders: morphine, 4 mg = 1 mL, IM, Injection, Once, First Dose: 08/07/22 13:57:00 CDT, Stop Date: 08/07/22 13:57:00 CDT, Physician Stop Patient Discharge Condition good Discharge Disposition discharge home in good condition Patient Education Migraine Headache Follow Up With When Contact Information Hermes Ramirez MD Within [address] [place] [address], [address] [place] [address]- Additional Instructions: Medication Reconciliation Unchanged albuterol (albuterol [...] Family History Cancer: Mother. Electronically Signed on 08/07/22 02:00 PM Mike Malik MD Patient Care team information Care Team Personnel Name: Jessee Jones SOFTBALL COACH Position: Physician Member Role: Nurse Practitioner Address: Address: [address] [place] [address], [address] Name: Latoya Marquez SOFTBALL COACH Position: Physician Member Role: Nurse Practitioner Address: Address: [address] [place] [address] Name: Leonila Gonzalez SOFTBALL COACH Position: Physician Member Role: Nurse Practitioner Address: Address: [address] [place] [address] Name: Beth Brandt SOFTBALL COACH Position: Physician Member Role: Nurse Practitioner Address: Address: [address] [place] [address] Name: Hermes Ramirez MD Position: Physician Member Role: Informed Provider Address: Address: [address] [facility], [address] [place] [address]- Name: Pillo Moe SOFTBALL COACH Position: Physician Member Role: Nurse Practitioner Address: Address: [address] [facility], [address] [facility] Name: Mike Malik MD Position: Physician Member Role: Admitting Physician Address: Address: [address] [place] [address] [place] [address]- Name: Rachael Arroyo RN Position: Nurse Member Role: ED Nurse Care Team Related Persons Name: STACIA JONES Address: Home [address] [place], [place] [id number] Name: ROBYN JAMA Address: Home
--- OUTSIDE RECORDS SUMMARY | 2024-03-20 11:46 | XMS_ITS | Continuity of Care Document ---
Author Organization [facility] Address [address] [place] [address]- Care Team Providers Care Electrician Rectifier Maintenance Name Role Phone Hermes Ramirez Primary Care Physician Encounter ONOFRE MCGRAW [id number] Date(s): 04/03/23 - 04/03/23 [facility] [address] [place] [address]- Discharge Disposition: Home or Self Care Allergies, Adverse Reactions, Alerts Substance Reaction Severity [...] Daily, # 30 tab, 11 Refill(s), Pharmacy: [place], [place], 157.[address], cm, 01/04/23 15:03:00 CDT, Height/Length [...] BID, # 60 cap, 11 Refill(s), Pharmacy: [place], [place], [address], cm, 01/04/23 15:03:00 CDT, Height/Length [...] Care Team Personnel Name: Jessee Jones HEAD KILN OPERATOR Position: Physician Member Role: Nurse Practitioner Address: Address: [address] [place] [address], [address] [place] [address]- Name: Latoya Marquez HEAD KILN OPERATOR Position: Physician Member Role: Nurse Practitioner Address: Address: [address] [place] [address]- Name: Leonila Gonzalez HEAD KILN OPERATOR Position: Physician Member Role: Nurse Practitioner Address: Address: [address] [place] [address]- Name: Beth Brandt HEAD KILN OPERATOR Position: Physician Member Role: Nurse Practitioner Address: Address: [address] [place] [address] [place] [address] Name: Hermes Ramirez MD Position: Physician Member Role: Primary Care Physician Address: Address: [address] [place] [address], [address] Name: Anamika Gore MD Position: Physician - Women's Health Member Role: Informed Provider Name: Pillo Moe NP Position: Physician Member Role: Nurse Practitioner Address: Address: [address] [place] [address], [address] [facility] Care Team Related Persons Name: STACIA JONES Address: Home [address] [place], [place] [id number] Name: ROBYN JAMA
--- OUTSIDE RECORDS SUMMARY | 2024-03-20 11:46 | XMS_ITS | Continuity of Care Document ---
Author Organization [facility] Address [address] [place] [address] Care Team Providers Care Bottle Blowing Machine Tender Name Role Phone Hermes Ramirez Primary Care Physician Encounter RIVER MARILUZ [id number] Date(s): 01/04/23 - 01/04/[address] [address] [place] Encounter Diagnosis Migraine headache(Discharge Diagnosis) - 01/04/23 Discharge Disposition: Home or Self Care Attending [...] Complete 2+ Views Right 07/04/22 Functional Status 01/04/23 Family Member Travel History No recent t [...] Daily, # 30 tab, 0 Refill(s), Pharmacy: [place], [place], [address], cm, 12/17/22 0:09:00 CDT, Height/Length [...] BID, # 60 cap, 0 Refill(s), Pharmacy: [place], [place], [address], cm, 12/17/22 0:09:00 CDT, Height/Length [...] [35.8-37.3 Deg C] 37 De g C (01/04/23 2:15 PM) Peripheral Pulse Rate [60-100 bpm] 82 bp m (01/04/23 3:55 PM) 82 bpm (01/04/23 2:15 PM) Respiratory Rate [12-24 br/min] 16 br/mi n (01/04/23 3:55 PM) 18 br/min (01/04/23 2:15 PM) Blood Pressure [90-140/60-90 mmHg] 163/1 01mmHg *HI* (01/04/23 3:55 PM) 155/99mmHg *HI* (01/04/23 2:15 PM) Mean Arterial Pressure, Cuff [65-140 mmH g] 118 mmHg (01/04/23 2:15 PM) Weight Dosing 81.65 kg (01/04/23 3:03 PM) Weight Estimated 81.65 kg (01/04/23 2:15 PM) Height/Length Dosing 157.480 cm (01/04/23 3:03 PM) Height/Length Estimated 157.480 cm (01/04/23 2:15 PM) Social History Social History Type Response Tobacco Current everyday tob acco user Tobacco Use:. Sex Hospital Discharge Instructions Patient Education 01/04/2023 15:50:21 Migraine Headache, Owrb-ko-Jcfb Migraine Headache A migraine headache is a [...] these instructions at home: Medicines ??? Take pcns-mtt-hiqcwne and prescription medicines only as told by your doctor. ??? Ask your doctor if the medicine prescribed to you: ??? Requires you to avoid driving or using heavy machinery. ??? Can cause trouble pooping (constipation). You may need to take these steps to prevent or treat trouble pooping: ??? Drink enough fluid to keep your pee (urine) pale yellow. ??? Take ftmq-tfn-ifickqi or prescription medicines. ??? Eat foods that [...] Reviewed: 04/18/2019 Else[employer] Patient Education ?? 2022 [employer] Follow Up Care 01/04/2023 14:15:01 With:Hermes Ramirez MD Address: [address] [place] [address], [address] [place] [address]- When:3 to 5 days Physician Emergency department Note * Maryam Cortés MD: PERFORM Event Display: ED Note Physician Authored Date: [id number] MISHA JACKSON :1980 Age:42 years Sex:Female Visit Date:01/04/2023 Primary Care Physician: Hermes Ramirez MD Basic Information Time Seen: Maryam Cortés MD / 01/04/2023 14:47 Chief Complaint migraine onset today. pt also complains of nausea, light and sound sensitivity. PH tylenol at 1000 History Of Present Illness: Patient at ER for complaints of having RT sided headaches for past 2-3 days. Headache is dull, continuous, and severe, rated 8/10. She feels nauseated, no vomiting. Has photophobia and phonophobia. She [...] Vitals & Measurements T:??37?C ??(Oral)?? HR:??82??(Peripheral)?? RR:??18?? BP:??155/99?? SpO2:??98%?? HT:??157.480??cm?? WT:??81.65??kg??(Estimated)?? Pain Score:??7?? O2 Therapy:??Room air?? General: Alert [...] mood and affect Medical Decision Makin - Headache is improved. Procedure No Qualifying Data Assessment/Plan 1.??Migraine headache??G43.009 Orders: Discharge Patient, 01/04/23 15:51:00 CDT Patient Discharge Condition Improved. Discharge Disposition Home. Patient Education Migraine Headache, Oixj-zy-Wcqf Follow Up With When Contact Information Hermes Ramirez MD Within 3 to 5 days [facility] [address] [place] [address]- Additional Instructions: Medication Reconciliation Unchanged amLODIPine (amLODIPine [...] 4 WEEKS +SYRINGE KIT 10. ?? topiramate (Topamax 25 mg oral tablet)2 [...] 50 mg, IM Dilaudid, 1 mg, IM Allergies NSAIDs Toradol??(Kidney failure as a complication of care) aspirin??(Medication interaction) azithromycin??(Unknown) codeine??(Unknown, Itching) gentamicin erythromycin??(Medication interaction) Social History Alcohol Never Electronic Cigarette/Vaping Electronic Cigarette Use: Never. Substance Use Never Tobacco Current everyday tobacco user Tobacco Use:.- Comments: Pt states that she smokes half a pack a day. Family History Cancer: Mother. Electronically Signed on 01/04/23 03:52 PM Maryam Cortés MD Patient Care team information Care Team Personnel Name: Jessee Jones ADJUNCT INSTRUCTOR IN ECONOMICS Position: Physician Member Role: Nurse Practitioner Address: Address: [address] [place] [address], [address] [place] [address]- Name: Latoya Marquez ADJUNCT INSTRUCTOR IN ECONOMICS Position: Physician Member Role: Nurse Practitioner Address: Address: [address] [place] [address]- Name: Leonila Gonzalez ADJUNCT INSTRUCTOR IN ECONOMICS Position: Physician Member Role: Nurse Practitioner Address: Address: [address] [place] [address]- Name: Beth Brandt ADJUNCT INSTRUCTOR IN ECONOMICS Position: Physician Member Role: Nurse Practitioner Address: Address: [address] [place] [address] Name: Hermes Ramirez MD Position: Physician Member Role: Primary Care Physician Address: Address: [address] [place] [address], [address] [place] [address]- Name: Anamika Gore MD Position: Physician - Women's Health Member Role: Informed Provider Name: Pillo Moe ADJUNCT INSTRUCTOR IN ECONOMICS Position: Physician Member Role: Nurse Practitioner Address: Address: [address] [place] [address], [address] [facility] Name: Maryam Cortés MD Position: Physician Member Role: Admitting Physician Address: Address: [address] [place] [address] [place] [address]- Name: Annabella Billings RN Position: Nurse Member Role: Registered Nurse Care Team Related Persons Name: STACIA JONES Address: Home [address] [place], [place] [id number] Name: ROBYN JAMA
--- OUTSIDE RECORDS SUMMARY | 2024-03-20 11:46 | XMS_ITS | Continuity of Care Document ---
Author Organization [facility] Address [address] [place] [address] Care Team Providers Care Rn Or Lpn Name Role Phone Hermes Ramirez Primary Care Physician Encounter ONOFREEver [id number] Date(s): 05/01/22 - 05/01/[address] [address] Encounter Diagnosis Headache, migraine, intractable(Discharge Diagnosis) - 05/01/22 Discharge Disposition: Home or Self Care Attending [...] wheezing, # 6.7 g, 0 Refill(s), Pharmacy: [place], [place], 73, cm, 09/13/21 23:53:00 CDT, Height/Length [...] needed, # 12 cap, 0 Refill(s), Pharmacy: [place], [place], 157, cm, 11/04/21 20:02:00 CDT, Height/Length [...] 18:45:00CST, Height/Length Dosing, 72.57, kg, 02/07/22 18:45:00 [employer], Weight Dosing Start Date: 02/13/22 Status: Ordered oseltamivir 30 mg oral capsule 30 mg = 1 cap, Oral, BID, # 10 cap, 0 Refill(s), Pharmacy: [place], [place], 157.48, cm, 03/16/22 18:01:00 [employer], Height/Length Dosing, 77.11, kg, 03/16/22 18:01:00 [employer], Weight Dosing Start Date: 03/16/22 Status: Ordered Pepcid 20 mg oral tablet 20 mg = 1 tab, Oral, BID, 0 Refill(s) Start Date: 09/29/20 Status: Ordered Phenergan 25 mg oral tablet 25 mg = 1 tab, Oral, every 6 hr, PRN as needed for nausea/vomiting, # 20 tab, 0 Refill(s), Pharmacy: [place], [place], [address], cm, 09/29/21 23:03:00 CDT, Height/Length [...] [35.8-37.3 Deg C] 37 De g C (05/01/22 5:39 AM) Peripheral Pulse Rate [60-100 bpm] 107 b pm *HI* (05/01/22 5:39 AM) Respiratory Rate [12-24 br/min] 20 br/mi n (05/01/22 5:39 AM) Blood Pressure [90-140/60-90 mmHg] 154/9 8mmHg *HI* (05/01/22 5:39 AM) Weight 82.00 kg (05/01/22 5:39 AM) Weight Dosing 82.00 kg (05/01/22 5:59 AM) Height 157.000 cm (05/01/22 5:39 AM) Height/Length Dosing 157.000 cm (05/01/22 5:59 AM) Body Mass Index 33.000 kg/m2 (05/01/22 5:39 AM) Social History Social History Type Response Smoking Status 5-9 cigarettes (betw een 1/4 to 1/2 pack)/day in last 30 days entered on: 05/12/21 Sex Hospital Discharge Instructions Patient Education 05/01/2022 05:47:13 Chronic Migraine Headache, Fpah-to-Buug Chronic Migraine Headache A migraine headache is [...] these instructions at home: Medicines ??? Take nafd-qrg-tqcqcwf and prescription medicines only as told by [...] Headache and Migraine Patients (CHAMP): headachemigraine.org ??? [place] Migraine Foundation: americanmigrainefoundation.org ??? National Headache Foundation: [...] provider. Document Revised: 04/22/2020 Document Reviewed: 04/22/2020 [employer] Patient Education ?? 2021 [employer]. 05/01/2022 05:47:09 Migraine Headache, Dhtm-zx-Kdao Migraine Headache A migraine headache is a [...] these instructions at home: Medicines ??? Take vhgc-slf-lnwbssh and prescription medicines only as told by your doctor. ??? Ask your doctor if the medicine prescribed to you: ??? Requires you to avoid driving or using heavy machinery. ??? Can cause trouble pooping (constipation). You may need to take these steps to prevent or treat trouble pooping: ??? Drink enough fluid to keep your pee (urine) pale yellow. ??? Take xubl-uzg-tcjicmd or prescription medicines. ??? Eat foods that [...] provider. Document Revised: 06/28/2019 Document Reviewed: 04/18/2019 [employer] Patient Education ?? 2021 [employer] Follow Up Care 05/01/2022 05:39:40 With:Follow up with primary care provider Address: When:1 week Comments:Continue other home medications. ??Return to ED if symptoms worsen. Physician Emergency department Note * Jesus Khan MD: PERFORM Event Display: ED Note Physician Authored Date: [id number] MISHA JACKSON :1980 Age:41 years Sex:Female Visit Date:05/01/2022 Primary Care Physician: Hermes Ramirez MD Basic Information Time Seen: Jesus Khan MD / 05/01/2022 05:41 History Of Present Illness: Recurrent migraine headache.?? Started again last night at work.?? States she has been experiencing??nausea no vomiting.?? Similar symptoms??as all previous ones. Review of Systems: Constitutional:?No??fevers,?No??chills,?No??sweats.?? Headache Eye:?No??recent visual problems ENT:?No??ear pain,?No??nasal congestion,?No??sore throat [...] appropriate mood and affect Medical Decision Making: Morphine 4 mg IM. ??Phenergan??25 mg IM. ??Benadryl 50 mg IM. Procedure No Qualifying Data Assessment/Plan 1.??Headache, migraine, intractable??G43.919 Orders: Benadryl, 50 mg = 1 mL, IM, Injection, QID, PRN nausea, First Dose: 05/01/22 5:43:00 [employer] morphine, 4 mg = 1 mL, IM, Injection, Once, First Dose: 05/01/22 5:42:00 [employer], Stop Date: 05/01/22 5:42:00 [employer], Physician Stop Phenergan, 25 mg = 1 mL, IM, Injection, Once, First Dose: 05/01/22 5:44:00 [employer], Stop Date: 235:44:00 [employer], Physician Stop Chronic, recurrent, intractable migraine headache.?? Continue home medications. ??Follow-up with PCP. ??Follow-up with neurologist. Patient Discharge Condition Stable Discharge Disposition Discharge home Patient Education Chronic Migraine Headache, Ezdw-eq-Tjpn Migraine Headache, Yblo-az-Rcjh Follow Up With When Contact Information Follow up with primary care provider Within 1 week Additional Instructions: Continue other home medications. ??Return [...] Attestation Follow-up with PCP Electronically Signed on 05/01/22 05:47 AM Jesus Khan MD Patient Care team information Care Team Personnel Name: Jessee Jones [employer]INA [employer] SILVER[employer] SALESPERSON Position: Physician Member Role: Nurse Practitioner Address: Address: [address] [place] [address], [address] [place] [address]- Name: Latoya Marquez [employer] SALESPERSON Position: Physician Member Role: Nurse Practitioner Address: Address: [address] [place] [address]- Name: Leonila Gonzalez [employer] SALESPERSON Position: Physician Member Role: Nurse Practitioner Address: Address: [address] [place] [address]- Name: Beth Brandt [employer]ILVER[employer] SALESPERSON Position: Physician Member Role: Nurse Practitioner Address: Address: [address] [place] [address] Name: Hermes Ramirez MD Position: Physician Member Role: Informed Provider Address: Address: [address] [place] [address], [address] [place] [address]- Name: Pillo Moe [employer] SILVERWARE SALESPERSON Position: Physician Member Role: Nurse Practitioner Address: Address: [address] [place] [address], [address] [facility] Name: Jesus Khan MD Position: Physician Member Role: Admitting Physician Address: Address: [address] [place] [address] [place] [address]- [place] Name: Tori Villalpando RN Position: Nurse Member Role: Registered Nurse Care Team Related Persons Name: STACIA JONES Address: Home [address], [place] [id number] Name: ROBYN JAMA Address: Home
--- OUTSIDE RECORDS SUMMARY | 2024-03-20 11:46 | XMS_ITS | Continuity of Care Document ---
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) - 12/17/22 Other snf (current) drug therapy(Discharge Diagnosis) - 12/17/22 H/O liver transplant(Discharge Diagnosis) - 12/17/22 Discharge Disposition: Home or Self Care Attending [...] Complete 2+ Views Right 07/04/22 Functional Status 12/16/22 Family Member Travel History No recent t [...] Daily, # 30 tab, 0 Refill(s), Pharmacy: [place], [place], [address], cm, 09/10/22 15:23:00 CDT, Height/Length [...] BID, # 60 cap, 0 Refill(s), Pharmacy: [place], [place], [address], cm, 09/10/22 15:23:00 CDT, Height/Length [...] Oral [35.8-37.3 Deg C] 37.3 Deg C (12/16/22 11:49 PM) Peripheral Pulse Rate [60-100 bpm] 83 bp m (12/16/22 11:49 PM) Respiratory Rate [12-24 br/min] 18 br/mi n (12/16/22 11:49 PM) Blood Pressure [90-140/60-90 mmHg] 158/9 4mmHg *HI* (12/17/22 2:07 AM) 152/106mmHg *HI* (12/16/22 11:49 PM) Weight Dosing 81.00 kg (12/17/22 12:09 AM) Weight Estimated 81.00 kg (12/16/22 11:49 PM) Height/Length Dosing 157.000 cm (12/17/22 12:09 AM) Height/Length Estimated 157.000 cm (12/16/22 11:49 PM) Social History Social History Type Response Tobacco Current everyday tob acco user Tobacco Use:. Sex Hospital Discharge Instructions Patient Education 12/17/2022 01:28:11 Migraine Headache, Zybk-vy-Kign Migraine Headache A migraine headache is a [...] these instructions at home: Medicines ??? Take mavr-nhf-xgdtmmv and prescription medicines only as told by your doctor. ??? Ask your doctor if the medicine prescribed to you: ??? Requires you to avoid driving or using heavy machinery. ??? Can cause trouble pooping (constipation). You may need to take these steps to prevent or treat trouble pooping: ??? Drink enough fluid to keep your pee (urine) pale yellow. ??? Take voce-dbf-ucztxiu or prescription medicines. ??? Eat foods that [...] provider. Document Revised: 06/28/2019 Document Reviewed: 04/18/2019 [employer] Patient Education ?? 2022 [employer] 12/17/2022 01:28:11 Otitis Media, Adult Otitis Media, Adult Otitis media occurs when there is inflammation and fluid in the middle ear with signs and symptoms of an acute infection. The middle ear is a part of the ear that contains bones for hearing as well as air that helps send sounds to the brain. When infected fluid builds up in this space, it causes pressure and can lead to an ear infection. The eustachian tube connects the middle ear to the back of the nose (nasopharynx) and normally allows air into the middle ear. If the eustachian tube becomes blocked, fluid can build up and become infected. What are the causes? This condition is caused by a blockage in the eustachian tube. This can be caused by mucus or by swelling of the tube. Problems that can cause a blockage include: ??? A cold or other upper respiratory infection. ??? Allergies. ??? An irritant, such as tobacco smoke. ??? Enlarged adenoids. The adenoids are areas of soft tissue located high in the back of the throat, behind the nose and the roof of the mouth. They are part of the body's defense system (immune system). ??? A mass in the nasopharynx. ??? Damage to the ear caused by pressure changes (barotrauma). What increases the risk? You are more likely to develop this condition if you: ??? Smoke or are exposed to tobacco smoke. ??? Have an opening in the roof of your mouth (cleft palate). ??? Have gastroesophageal reflux. ??? Have an immune system disorder. What are the signs or symptoms? Symptoms of this condition include: ??? Ear pain. ??? Fever. ??? Decreased hearing. ??? Tiredness (lethargy). ??? Fluid leaking from the ear, if the eardrum is ruptured or has burst. ??? Ringing in the ear. How is this diagnosed? This condition is diagnosed with a physical exam. During the exam, your health care provider will use an instrument called an otoscope to look in your ear and check for redness, swelling, and fluid. He or she will also ask about your symptoms. Your health care provider may also order tests, such as: ??? A pneumatic otoscopy. This is a test to check the movement of the eardrum. It is done by squeezing a small amount of air into the ear. ??? A tympanogram. This is a test that shows how well the eardrum moves in response to air pressurein the ear canal. It provides a graph for your health care provider to review. How is this treated? This condition can go away on its own within 3???5 days. But if the condition is caused by a bacterial infection and does not go away on its own, or if it keeps coming back, your health care providermay: ??? Prescribe antibiotic medicine to treat the infection. ??? Prescribe or recommend medicines to control pain. Follow these instructions at home: ??? Take fbsq-mka-lotoqld and prescription medicines only as told by your health care provider. ??? If you were prescribed an antibiotic medicine, take it as told by your health care provider. Donot stop taking the antibiotic even if you start to feel better. ??? Keep all follow-up visits. This is important. Contact a health care provider if: ??? You have bleeding from your nose. ??? There is a lump on your neck. ??? You are not feeling better in 5 days. ??? You feel worse instead of better. Get help right away if: ??? You have severe pain that is not controlled with medicine. ??? You have swelling, redness, or pain around your ear. ??? You have stiffness in your neck. ??? A part of your face is not moving (paralyzed). ??? The bone behind your ear (mastoid bone) is tender when you touch it. ??? You develop a severe headache. Summary ??? Otitis media is redness, soreness, and swelling of the middle ear, usually resulting in pain and decreased hearing. ??? This condition can go away on its own within 3???5 days. ??? If the problem does not go away in 3???5 days, your health care provider may give you medicinesto treat the infection. ??? If you were prescribed an antibiotic medicine, take it as told by your health care provider. ??? Follow all instructions that were given to you by your health care provider. This information is not intended to replace advice given to you by your health care provider. Make sure you discuss any questions you have with your health care provider. Document Revised: 06/14/2021 Document Reviewed: 06/14/2021 [employer] Patient Education ?? 2022 [employer]. Follow Up Care 12/16/2022 23:49:44 With:1. Ensure adequate oral hydration 2. Ensure adequate sleep 3. Not drive or operate machinery or drink alcohol for the next 12 hours 4. Continue current medications as prescribed 5. Return if not improving Address:Unknown When:1 month Physician Emergency department Note * Percy Salazar MD: PERFORM, MODIFY Event Display: ED Note Physician Authored Date: [id number] RENETTA MISHA Ever :1980 Age:42 years Sex:Female Visit Date:12/16/2022 Primary Care Physician: Hermes Ramirez MD Basic Information ??No qualifying data available.?? Chief Complaint Pt arrives to ED with c/o headache and left ear pain since afternoon. Tylenol taken earlier withoutrelief. History Of Present Illness: 42-year-old white female who presented to the emergency room by POV with her son who drove her to the ER from home with a complaint of??migraine headache and left earache.?? The patient states that she has the migraine??for??about 12 hours and she has frequent migraines??which she started having??over 15 years ago and her current symptoms are similar to previous migraines.?? 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 The patient is on chronic??immune suppression??sheis currently on cyclosporine and mycophenolate.?? She sometimes develops migraines because of her medications??and stated that??they usually respond to Dilaudid??plus Benadryl??plus??Phenergan??and??she tolerated??Dilaudid in the past despite the fact that her chart lists codeine as an allergy??butshe states she is not allergic to codeine.?? For her ear infection??in this ER and was started on amoxicillin she states her left ear still??hurts a little bit but there is no??discharge.?? She is started having??ear problems??in her 30s and ended up with your tubes??for the first time age 36 and she currently has??ear tubes in place.?? She denied any??unusual symptoms. Review of Systems: Constitutional:?No??fevers,?No??chills,?No??sweats Eye:?No??recent visual problems ENT:?No??ear pain,?No??nasal congestion,?No??sore throat Respiratory:?No??shortness of breath,?No??cough Cardiovascular:?No??Chest pain,?No??palpitations,?No??syncope Gastrointestinal:?Nonausea,?No??vomiting,?No??diarrhea Genitourinary:?No??hematuria Clemente/Lymph:?No??bruising tendency,?No??swollen lymph glands Endocrine:?No??excessive thirst,??No??excessive hunger Musculoskeletal:??No??back pain,??No??neck pain,??No??joint pain,??No??muscle pain,??No??decreased range of motion Integumentary:?No??rash,?No??pruritus,?No??abrasions Neurologic: Alert & oriented X 4 Psychiatric:?No??anxiety,?No??depression Physical Exam Vitals & Measurements T:??37.3?C ??(Oral)?? HR:??83??(Peripheral)?? RR:??18?? BP:??152/106?? SpO2:??100%?? HT:??157.000??cm?? WT:??81.00??kg??(Estimated)?? Pain Score:??7?? O2 Therapy:??Room air?? General: Alert and oriented, well nourished,?No??acute distress Eye: PERRL, EOMI,?Normal?conjunctiva HENT: Normocephalic, minimal erythema of the left??tympanic membranes,??white ear tubes in both??TMs??noted, normal? hearing, moist oral mucosa,?No??scleral icterus,?No??sinus tenderness Neck: Supple, non-tender,?No??carotid bruits,?No??JVD,?No??lymphadenopathy,??there was no stiffness Kernig and Brudzinski both negative Lungs:??Clear to auscultation?? Respiration:??Non-Labored Heart:?Normal? rate,?Regular??rhythm,?No??murmur,?No??gallop,?No??edema Abdomen: Soft, non-tender, non-distended,?Normal? bowel sounds,?No??masses Musculoskeletal:?Normal? range of motion and strength,?No??tenderness,?No??swelling Skin: Skin is warm, dry and pink,?No??rashes,?No??lesions Neurologic: Awake, alert and oriented X4, CN II-XII intact Psychiatric: Cooperative, appropriate mood and affect Medical Decision Making: The patient was given??Dilaudid 0.5??mg??IM and Benadryl 25 mg IM??and Phenergan 25 mg IM.?? The patient felt significant improvement in her migraine??symptoms and felt well enough to go home. ??She was advised not to drive operate machinery or drink alcohol for at least 12 hours??and she stated that her 21-year-old son??drove her to the hospital??will be driving her home.?? She was discharged home in stable condition. Procedure No Qualifying Data Assessment/Plan Acute bilateral otitis media??H66.93 H/O kidney transplant??Z94.0 H/O liver transplant??Z94.4 Headache, classical migraine??G43.109 Immunosuppression due to drug therapy??D84.821 Other termite renewal inspector (current) drug therapy??Z79.899 Tobacco abuse??Z72.0 Tobacco abuse counseling??Z71.6 Orders: Dilaudid, 0.5 mg = 0.5 mL, IM, Injection, every 4 hr, First Dose: 12/17/22 2:00:00 CDT, Routine Medication Reconciliation Unchanged amLODIPine (amLODIPine 5 mg [...] Family History Cancer: Mother. Electronically Signed on 12/17/22 01:58 AM Percy Salazar MD Patient Care team information Care Team Personnel Name: Jessee Jones [employer]BOREAL SCIENTIST Position: Physician Member Role: Nurse Practitioner Address: Address: [address] [place] [address], [address] Name: Latoya Marquez [employer]BOREAL SCIENTIST Position: Physician Member Role: Nurse Practitioner Address: Address: [address] [place] [address]- Name: Leonila Gonzalez NP Position: Physician Member Role: Nurse Practitioner Address: Address: [address] [place] [address]- Name: Beth Brandt ARBOREAL SCIENTIST Position: Physician Member Role: Nurse Practitioner Address: Address: [address] [place] [address] Name: Hermes Ramirez MD Position: Physician Member Role: Informed Provider Address: Address: [address] [facility], [address] Name: Pillo Moe ARBOREAL SCIENTIST Position: Physician Member Role: Nurse Practitioner Address: Address: [address] [facility], [address] [facility] Name: Shea Mayer RN Position: Nurse Member Role: Registered Nurse Care Team Related Persons Name: STACIA JONES Address: Home [address] [place], [place] [id number] Name: ROBYN JAMA
--- OUTSIDE RECORDS SUMMARY | 2024-03-20 11:46 | XMS_ITS | Continuity of Care Document ---
Author Organization [facility] [address] [place] [address]- Care Team Providers Care Special Education Paraeducator Name Role Phone Hermes Ramirez Primary Care Physician [phone] Encounter RANDY MCGRAW [id number] Date(s): 02/12/24 - 02/12/24 [facility] [address] [place] [address]- Encounter Diagnosis Chesty cough(Discharge Diagnosis) - 02/12/24 Rhinovirus infection(Discharge Diagnosis) - 02/12/24 D-dimer, elevated(Discharge Diagnosis) - 02/12/24 Discharge Disposition: Home or Self Care Attending Physician: Hermes Ramirez MD Allergies, Adverse Reactions, Alerts Substance Criticality Severity Reaction Reaction Severity Status codeine High criticality Severe Unknown Itching Active gentamicin High criticality Moderate Ac tive erythromycin Medication interaction Active NSAIDs High criticality Severe Act luis miguel azithromycin High criticality Severe Unknown Active aspirin High criticality Severe Medication interaction Active morphine 1 Low criticality Mild redness Itching Active Toradol High criticality Severe Kidney fail ure as a complication of care Active 1localized reaction at iv site Assessment and Plan Extracted from: Title:Office Visit Note Author:Philip Ramirez MD Date:02/12/24 Depression Screen?? PHQ 2?? Little Interest - Pleasure in Activities: Not at all Feeling Down, Depressed, Hopeless: Not at all Initial Depression Screen Score: 0 Score Assessment/Plan 1.??Rhinovirus infection??B34.8 ??Continue supportive care. Ordered: Tessalon Perles 100 mg oral capsule, 100 mg = 1 cap, Oral, TID, PRN as needed for cough, # 21 cap, 0 Refill(s), [facility]: [id number], 157.48, cm, 02/12/24 8:34:00 [employer] SCHOOL PSYCHOLOGIST, Height, 91.63, kg, 02/12/24 8:41:00 [employer] SCHOOL PSYCHOLOGIST, Weight Dosing ?? 2.??D-dimer, elevated??R79.89 ??Will get??VQ scan ordered as soon as possible.?? She will continue Lovenox until we get a negative result. Ordered: Tessalon Perles 100 mg oral capsule, 100 mg = 1 cap, Oral, TID, PRN as needed for cough, # 21 cap, 0 Refill(s), [facility]acy: [id number], 157.48, cm, 02/12/24 8:34:00 [employer] SCHOOL PSYCHOLOGIST, Height, 91.63, kg, 02/12/24 8:41:00 [employer] SCHOOL PSYCHOLOGIST, Weight Dosing NM Lung Vent/Perf Imaging, 02/12/24, JENNI, Reason: elevated d dimer, SOB, Transport Mode: Ambulatory, D-dimer, elevated ?? Chesty cough??R05.8 Ordered: Coronavirus SARS Ag (QuickVue) POC (RE), 02/12/24 8:43:00 [employer] SCHO[employer] PSYCHOLOGIST, Stop date 02/12/24 8:43:00 [employer] S[employer] PSYCHOLOGIST, Chesty cough Flu A/B (QuickVue) POC (RE), 02/12/24 8:43:00 B[employer]ING[employer] SCHOOL PSYCHOLOGIST, Stop date 02/12/24 8:43:00 [employer] S[employer] PSYCHOLOGIST, Chesty cough ?? I told her I thought an injection of steroid into her shoulder??would be reasonable. Future Appointments Future Scheduled Tests Radiology* MG Mammo Diagnostic Bilateral w/ Chad 02/23/24 * US Breast Limited Left 02/23/24 * NM Lung Vent/Perf Imaging 02/12/24 Immunizations [...] Daily, # 30 tab, 11 Refill(s), Pharmacy: [place], [place], 157.48, cm, 01/04/23 15:03:00 CDT, Height/Length [...] BID, # 120 cap, 2 Refill(s), [facility], 157.5, cm,02/06/24 16:22:00 [employer] SCHO[employer] PSYCHOLOGIST, Height, 89.91, kg, 02/06/24 16:28:00 [employer] SCHOOL PSYCHOLOGIST, Weight Dosing Start Date: 02/07/24 Status: Ordered [...] BID, # 60 cap, 11 Refill(s), Pharmacy: [facility], 157.48, cm, 01/04/23 15:03:00 CDT, Height/Length Dosing, 81.65, kg, 01/04/23 15:03:00 CDT, Weight Dosing Start Date: 01/11/23 Status: Ordered nicotine 21 mg/24 hr transdermal film, extended release 1 patches, Transdermal, Daily, # 14 patches, 1 Refill(s), Pharmacy: [id number], 157.48, cm, 01/01/24 14:49:00 CDT, Height, 87.09, kg, 01/01/24 14:53:00 CDT, Weight Dosing Start Date: 01/01/24 Status: Ordered Nicotrol Inhaler 10 mg inhalation device See Instructions, 6-16 cartriges/day, # 1 EA, 2 Refill(s), Pharmacy: [id number], 157.48, cm, 08/29/23 14:22:00 CDT, Height, 88, kg, 08/29/23 14:27:00 CDT, Weight Dosing Start Date: 08/29/23 Status: Ordered pantoprazole 40 mg oral delayed release tablet 1 tab, Oral, Daily, # 90 tab, 0 Refill(s), Pharmacy: [id number], 157.48, cm, 06/07/23 16:07:00 CDT, Height, 89.36, [...] cough, # 21 cap, 0 Refill(s), [id number], 157.48, cm, 02/12/24 8:34:00 B[employer]ING[employer] SCHOOL PSYCHOLOGIST, Height, 91.63, kg, 02/12/24 8:41:00 [employer] SCHOOL PSYCHOLOGIST, Weight Dosing Start Date: 02/12/24 Stop Date: 02/19/24 Status: Ordered venlafaxine 37.5 mg oral capsule, extended release 37.5 mg = 1 cap, Oral, Daily, # 90 cap, 0 Refill(s), [facility]acy: [id number], 157.48, cm, 09/28/23 18:18:00 CDT, Height, [...] List Name Date Influenza A/B ([place]) POCT 02/12/24 SARS-CoV or CoV-2 (COVID-19) Antigen (Bi nax) POCT 02/12/24 Most recent to oldest [Reference Range]: 1 Employed in healthcare? No *NA* (02/12/24 3:14 PM) Symptomatic as defined by CDC? Yes *NA* (02/12/24 3:14 PM) Date of onset (Lab) 09-FEB-2024 *NA* (02/12/24 3:14 PM) Hospitalized due to COVID-19? No *NA* (02/12/24 3:14 PM) In ICU? No *NA* (02/12/24 3:14 PM) Group care resident? No *NA* (02/12/24 3:14 PM) status? Not *NA* (02/12/24 3:14 PM) SARS-CoV or CoV-2(COVID-19)Ag(Binax)POCT [Negative] Negative (02/12/24 3:14 PM) Influenza A ([place]) POCT Negative *NA* (02/12/24 3:19 PM) Influenza B ([place]) POCT Negative *NA* (02/12/24 3:19 PM) Vital Signs Most recent to oldest [Reference Range]: 1 Temperature Tympanic [36.6-38.1 Deg C] 3 7.2 Deg C (02/12/24 8:34 AM) Peripheral Pulse Rate [60-100 bpm] 78 bp m (02/12/24 8:34 AM) Respiratory Rate [12-24 br/min] 18 br/mi n (02/12/24 8:34 AM) Blood Pressure [90-120/60-80 mmHg] 124/7 6mmHg *HI* (02/12/24 8:34 AM) Mean Arterial Pressure, Cuff [65-140 mmH g] 92 mmHg (02/12/24 8:34 AM) Weight 91.63 kg (02/12/24 8:34 AM) Weight Measured (lbs) 202.009 lb (02/12/24 8:34 AM) Weight Dosing 91.630 kg (02/12/24 8:34 AM) Height 157.48 cm (02/12/24 8:34 AM) Height/Length Measured (inches) 62 inch (02/12/24 8:34 AM) BSA Measured 2 m2 (02/12/24 8:34 AM) Body Mass Index 36.95 kg/m2 (02/12/24 8:34 AM) Social History Social History Type Response Tobacco Current everyday tob acco user Tobacco Use:. Sex Sex Representation Female (finding) Physician Outpatient Note * Hermes Ramirez MD: PERFORM Event Display: Office Clinic Note Physician Authored Date: [id number] MISHA JACKSON :1980 Age:43 years Sex:Female Visit Date:02/12/2024 Primary Care Physician: Hermes Ramirez MD Chief Complaint Pt here to discuss Ortho appt. Pt states she was in ED and was Dx with Rhino virus and possible PE.Pt is coughing and congested. They gave her lovenox x 10 days History of Present Illness MISHA JACKSON??is a??43 Years??old??Female??presenting today with??Chief Complaint: Pt here todiscuss Ortho appt. Pt states she was in ED and was Dx with Rhino virus and possible PE. Pt is coughing and congested. They gave her lovenox x 10 days (02/12/24 08:34:00).?? ER records reviewed. ??She was diagnosed with rhinovirus. ??Her D-dimer was high. ??She cannot have CT scan due to??renal insu fficiency.?? They were unable to get a VQ scan??due to being the weekend. ??She continues to have cough??and wheezing??shortness of breath. ??She is using albuterol nebulizer at home. Review of Systems Constitutional:?No??fevers Respiratory:?Positive for??shortness of breath Cardiovascular:?No??Chest pain Gastrointestinal:?No??abd pain Physical Exam Vitals & Measurements T:??37.2?C ??(Tympanic)?? HR:??78??(Peripheral)?? RR:??18?? BP:??124/76?? SpO2:??96%?? HT:??157.48??cm?? WT:??91.63??kg?? BMI:??36.95?? Pain Score:??0?? BSA:??2?? General: Alert and oriented, well nourished,?No??acute distress Lungs:??Wheezing bilaterally?Non-labored?? respiration Heart:?Normal? rate,?Regular??rhythm,?No??murmur,?No??gallop Abdomen: Soft, non-tender, non-distended,?Normal? bowel sounds,?No??masses Peripheral Vascular: ??No??edema Depression Screen?? PHQ 2?? Little Interest - Pleasure in Activities: Not at all Feeling Down, Depressed, Hopeless: Not at all Initial Depression Screen Score: 0 Score Assessment/Plan 1.??Rhinovirus infection??B34.8 ??Continue supportive care. Ordered: Tessalon Perles 100 mg oral capsule, 100 mg = 1 cap, Oral, TID, PRN as needed for cough, # 21 cap, 0 Refill(s), [facility]acy: [id number], 157.48, cm, 02/12/24 8:34:00 BILINGUAL SCHOOL PSYCHOLOGIST, Height, 91.63, kg, 02/12/24 8:41:00 BILINGUAL SCHOOL PSYCHOLOGIST, Weight Dosing ?? 2.??D-dimer, elevated??R79.89 ??Will get??VQ scan ordered as soon as possible.?? She will continue Lovenox until we get a negative result. Ordered: Tessalon Perles 100 mg oral capsule, 100 mg = 1 cap, Oral, TID, PRN as needed for cough, # 21 cap, 0 Refill(s), [facility]acy: [id number], 157.48, cm, 02/12/24 8:34:00 BILINGUAL SCHOOL PSYCHOLOGIST, Height, 91.63, kg, 02/12/24 8:41:00 BILINGUAL SCHOOL PSYCHOLOGIST, Weight Dosing NM Lung Vent/Perf Imaging, 02/12/24, JENNI, Reason: elevated d dimer, SOB, Transport Mode: Ambulatory, D-dimer, elevated ?? Chesty cough??R05.8 Ordered: Coronavirus SARS Ag (QuickVue) POC (RE), 02/12/24 8:43:00 BILINGUAL SCHOOL PSYCHOLOGIST, Stop date 02/12/24 8:43:00 BILINGUAL SCHOOL PSYCHOLOGIST, Chesty cough Flu A/B (QuickVue) POC (RE), 02/12/24 8:43:00 BILINGUAL SCHOOL PSYCHOLOGIST, Stop date 02/12/24 8:43:00 BILINGUAL SCHOOL PSYCHOLOGIST, Chesty cough ?? I told her I thought an injection of steroid into her shoulder??would be reasonable. Future Orders NM Lung Vent/Perf Imaging, 02/12/24, JENNI, Reason: elevated d dimer, SOB, Transport Mode: Ambulatory, D-dimer, elevated Problem List/Past Medical History Ongoing Acne Anxiety Breast lump on left side at 3 o'clock position Cervicalgia Chronic back pain Chronic neck pain Chronic pain Chronic pain Chronic paronychia of finger Congenital biliary atresia Constipation D-dimer, elevated Degenerative disc disease, cervical Dental infection Difficulty [...] sites PUD (peptic ulcer disease) Pulmonary nodules Rhinovirus infection Right knee pain Right shoulder pain Right-sided [...] tablet, 81 mg= 1 tab, Oral, Daily azaTHIOprine 50 mg oral tablet Benadryl 25 mg oral capsule, 50 mg= 2 cap, Oral, Once Envarsus XR 1 mg oral tablet, extended [...] tab, Oral, BID predniSONE 5 mg oral tablet, 5 mg= 1 tab, Oral, Daily sucralfate 1 g oral tablet, 1 tab, Oral, QID Tessalon Perles 100 mg oral capsule, 100 mg= 1 cap, Oral, TID, PRN venlafaxine 37.5 mg oral capsule, extended release, [...] (Tdap) adult/adol 05/25/2012 Recorded Electronically Signed on 02/12/2024 08:58 BILINGUAL SCHOOL PSYCHOLOGIST Hermes Ramirez MD Patient Care team information Care Team Personnel Name: Jessee Jones AUTOMATIC WINDER OPERATOR Position: Physician Member Role: Nurse Practitioner Address: [address] [place] [address], [place] [address] Name: Latoya Marquez AUTOMATIC WINDER OPERATOR Position: Physician Member Role: Nurse Practitioner Address: [address] [place] [address] Name: Leonila Gonzalez AUTOMATIC WINDER OPERATOR Position: Physician Member Role: Nurse Practitioner Address: [address] [place] [address] Name: Beth Brandt AUTOMATIC WINDER OPERATOR Position: Physician Member Role: Nurse Practitioner Address: [address] [place] [address] Name: Hermes Ramirez MD Position: Physician Member Role: Informed Provider Address[address] [place] [address]- Name: Pillo Moe NP Position: Physician Member Role: Nurse Practitioner Address: [address], [address] [facility] Care Team Related Persons Name: STACIA JONES Name: ROBYN JAMA Name: NAIF CHOI Name: MADY CHEN Name: MADY CHEN Insurance Providers Guarantor name: MISHA JACKSON Health Plan Information #: 1 Payer: [facility] MEDICAID MGD CARE Member Number: [id number] Policy Number: Health Plan Information #: 2 Payer: [facility] MEDICAID D CARE Member Number: [id number] Policy Number: Health Plan Information #: 3 Payer: [employer] AP[employer]OVED Member Number: NA Policy Number: NA Health Plan Information #: 4 Payer: MISC Workers Comp Member Number: Policy Number: NA
--- OUTSIDE RECORDS SUMMARY | 2024-03-20 11:46 | XMS_ITS | Continuity of Care Document ---
Author Organization [facility] in [facility] [address] [place] [address]- Care Team Providers Care Outboard Motor Assembler Name Role Phone Hermes Ramirez Primary Care Physician [phone] Encounter ONOFRE MCGRAW [id number] Date(s): 04/05/21 - 04/05/21 [facility] [place] [address] [place] [address]- Encounter Diagnosis COVID-19(Discharge Diagnosis) - 04/05/21 Discharge Disposition: Home or Self Care Attending Physician: Hermes Ramirez MD Allergies, Adverse Reactions, Alerts Substance Reaction Severity Status gentamicin Moderate Active erythromycin Medication interaction Activ e aspirin Medication interaction Activ e Toradol Kidney failure as a complication of care Active NSAIDs Severe Active Functional Status 04/05/21 Family Member Travel History No recent t [...] BID, # 180 tab, 3 Refill(s), Pharmacy: [place], [place], 157, cm, 10/22/20 21:26:00 CDT, Height/Length Dosing, 74, kg, 10/22/20 21:26:00 CDT, Weight Dosing Start Date: 12/18/20 Status: Ordered Pepcid 20 mg oral tablet 20 mg = 1 tab, Oral, BID, 0 Refill(s) Start Date: 09/29/20 Status: Ordered Multivitamins with Vitamin B Complex, [...] Constipation(Confirmed) Active COVID-19(Confirmed) Active Difficulty sleeping(Confirmed) Active Gout(Confirmed) Active History [...]
--- OUTSIDE RECORDS SUMMARY | 2024-03-20 11:46 | XMS_ITS | Continuity of Care Document ---
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) - 05/22/23 Other longterm (current) drug therapy(Discharge Diagnosis) - 05/22/23 Hypocalcemia(Discharge Diagnosis) - 05/22/23 Hypoalbuminemia(Discharge Diagnosis) - 05/22/23 Hyperchloremia(Discharge Diagnosis) - 05/22/23 Elevated alkaline phosphatase level(Discharge Diagnosis) - 05/22/23 Macrocytosis(Discharge Diagnosis) - 05/22/23 Tobacco abuse(Discharge Diagnosis) - 05/22/23 Discharge Disposition: Home or Self Care Attending [...] Appointments Diagnostic Tests Pending * Blood Culture 05/22/23 * Blood Culture 05/22/23 Future Scheduled Tests Laboratory* Urinalysis with Microscopic [...] Daily, # 30 tab, 11 Refill(s), Pharmacy: [place], [place], 157.48, cm, 01/04/23 15:03:00 CDT, Height/Length [...] BID, # 60 cap, 11 Refill(s), Pharmacy: [place], [place], 157.48, cm, 01/04/23 15:03:00 CDT, Height/Length [...] 0 Refill(s), 06/02/23 5:10:00 AM CDT, Pharmacy: [place], [place], [address], cm, 04/29/23 2:33:00 DISEASE CASE MANAGER RN, Height, 81, kg, 04/29/23 2:41:00 DISEASE CASE MANAGER RN, Weight Dosing Start Date: 05/03/23 Stop Date: [...] List Name Date Respiratory Panel 2.1 (BioFire) 05/22/23 Urinalysis with Culture if Indicated 05/21 .Urine Volume 05/22/23 Urinalysis Microscopic 05/22/23 CBC w/ Diff 05/22/23 Cardiac Profile HS 05/22/23 Comprehensive Metabolic Panel 05/22/23 Lactic Acid 05/22/23 Magnesium Level 05/22/23 .Morphology (ONOFRE) 05/22/23 Automated Diff 05/22/23 Most recent to oldest [Reference Range]: 1 WBC [4.0-11.5 K/mcL] 5.3 K/mcL (05/22/23 1:06 AM) RBC [4.20-5.40 x10^6/mcL] 3.73 x10^6/mcL *LOW* (05/22/23 1:06 AM) Neutro Auto 58.5 % *NA* (05/22/23 1:06 AM) Lymph Auto 25.9 % *NA* (05/22/23 1:06 AM) Park Auto 10.7 % *NA* (05/22/23 1:06 AM) Basophil Auto 0.4 % *NA* (05/22/23 1:06 AM) BUN [7-18 mg/dL] 32 mg/dL *HI* (05/22/23 1:06 AM) UA Color Yellow (05/22/23 1:11 AM) UA WBC [0-5] None (05/22/23 1:11 AM) Glucose Level [70-110 mg/dL] 111 mg/dL *HI* (05/22/23 1:06 AM) Potassium Level [3.5-5.1 mmol/L] 3.4 mmo l/L *LOW* (05/22/23 1:06 AM) Baso Absolute [0.0-0.1 x10^3/mcL] 0.0 x1 0^3/mcL (05/22/23 1:06 AM) MCV [78.0-100.0 fL] 100.8 fL *HI* (05/22/23 1:06 AM) UA Urobilinogen [Normal mg/dL] Normal mg /dL (05/22/23 1:11 AM) RBC Morph Reviewed (05/22/23 1: AM) UA Bili [Negative mg/dL] Negative mg/dL (05/22/23 1:11 AM) UA Ketones [Negative mg/dL] Negative mg/ dL (05/22/23 1:11 AM) AST [15-37 unit/L] 45 unit/L *HI* (05/22/23 1: AM) ALT [12-78 unit/L] 52 unit/L (05/22/23 1:06 AM) MCHC [29.0-37.5 g/dL] 33.8 g/dL (05/22/23 1:06 AM) Sodium Level [136-145 mmol/L] 143 mmol/L (05/22/23 1:06 AM) UA RBC [0-3] None (05/22/23 1:11 AM) UA Leuk Est [Negative Guille/mcL] Negative Guille/mcL (05/22/23 1:11 AM) Lymph Absolute [0.8-5.8 x10^3/mcL] 1.4 x 10^3/mcL (05/22/23 1:06 AM) UA Nitrite [Negative] Negative (05/22/23 1:11 AM) UA Glucose [Normal mg/dL] Normal mg/dL (05/22/23 1:11 AM) Hct [36.0-48.0 %] 37.6 % (05/22/23 1:06 AM) UA Bacteria [None Seen] Moderate *ABN* (05/22/23 1:11 AM) Calcium Level [8.5-10.1 mg/dL] 8.4 mg/dL *LOW* (05/22/23 1:06 AM) [place] Absolute [0.1-1.5 x10^3/mcL] 0.6 x1 0^3/mcL (05/22/23 1:06 AM) Albumin Level [3.4-5.0 g/dL] 2.8 g/dL *LOW* (05/22/23 1:06 AM) Protein Total [6.4-8.2 g/dL] 6.5 g/dL (05/22/23 1:06 AM) UA Protein [Negative mg/dL] Negative mg/ dL (05/22/23 1:11 AM) MCH [27.0-34.0 pg] 34.0 pg (05/22/23 1:06 AM) Magnesium Level [1.8-2.4 mg/dL] 1.7 mg/d L *LOW* (05/22/23 1:06 AM) Neutro Absolute [1.5-8.1 x10^3/mcL] 3.2 x10^3/mcL (05/22/23 1:06 AM) Bilirubin Total [0.0-1.0 mg/dL] 0.7 mg/d L (05/22/23 1:06 AM) Hgb [12.0-16.0 g/dL] 12.7 g/dL (05/22/23 1:06 AM) Alk Phos [46-130 unit/L] 368 unit/L *HI* (05/22/23 1:06 AM) UA Blood [Negative Rocael/mcL] Negative Rocael /mcL (05/22/23 1:11 AM) MPV [6.0-10.0 fL] 11.2 fL *HI* (05/22/23 1:06 AM) UA Mucous [None Seen] Few (05/22/23 1:11 AM) UA Spec Grav 1.005 (05/22/23 1:11 AM) Platelets [150-450 K/mcL] 113 K/mcL *LOW* (05/22/23 1:06 AM) CO2 [21-32 mmol/L] 23 mmol/L (05/22/23 1:06 AM) Eos Absolute [0.0-0.5 x10^3/mcL] 0.2 x10 ^3/mcL (05/22/23 1:06 AM) Lactic Acid Lvl [0.4-2.0 mmol/L] 0.7 mmo l/L (05/22/23 1:06 AM) UA Squam Epithelial [None Seen] Few (05/22/23 1:11 AM) Macrocyte 1+ (05/22/23 1:06 AM) UA pH [5.0-9.0] 7.0 (05/22/23 1:11 AM) eGFR Non-AA 34 *NA* (05/22/23 1:06 AM) eGFR AA 41 *NA* (05/22/23 1:06 AM) UA Appear [Clear] Hazy (05/22/23 1:11 AM) Chloride Level [97-107 mmol/L] 109 mmol/ L *HI* (05/22/23 1:06 AM) RDW-CV [11.5-15.0 %] 12.8 % (05/22/23 1:06 AM) Adenovirus RespP-BFire [Not Detected] No t Detected (05/22/23 2:24 AM) Bordetella parapertussis RespP-BFire [No t Detected] Not Detected (05/22/23 2:24 AM) Bordetella pertussis RespP-BFire [Not De tected] Not Detected (05/22/23 2:24 AM) Chlamydophila pneumoniae RespP-BFire [No t Detected] Not Detected (05/22/23 2:24 AM) Coronavirus 229E (Not COVID-19) RP-BFire [Not Detected] Not Detected (05/22/23 2:24 AM) Coronavirus HKU1 (Not COVID-19) RP-BFire [Not Detected] Not Detected (05/22/23 2:24 AM) Coronavirus NL63 (Not COVID-19) RP-BFire [Not Detected] Not Detected (05/22/23 2:24 AM) Coronavirus OC43 (Not COVID-19) RP-BFire [Not Detected] Not Detected (05/22/23 2:24 AM) Human Metapneumonovirus RespP-BFire [Not Detected] Not Detected (05/22/23 2:24 AM) Human Rhinovirus/Enterovirus RespP-BFir [Not Detected] Not Detected (05/22/23 2:24 AM) Influenza A RespP-BFire [Not Detected] N ot Detected (05/22/23 2:24 AM) Influenza B RespP-BFire [Not Detected] N ot Detected (05/22/23 2:24 AM) Mycomplasma pneumoniae RespP-BFire [Not Detected] Not Detected (05/22/23 2:24 AM) Parainfluenza Virus 1 RespP-BFire [Not D etected] Not Detected (05/22/23 2:24 AM) Parainfluenza Virus 2 RespP-BFire [Not D etected] Not Detected (05/22/23 2:24 AM) Parainfluenza Virus 3 RespP-BFire [Not D etected] Not Detected (05/22/23 2:24 AM) Parainfluenza Virus 4 RespP-BFire [Not D etected] Not Detected (05/22/23 2:24 AM) Respiratory Syncytial Virus RespP-BFire [Not Detected] Detected *ABN* (05/22/23 2:24 AM) Imm Gran Absolute [0.0-0.1 x10^3/mcL] 0. 0 x10^3/mcL (05/22/23 1:06 AM) Imm Gran Auto 0.4 % *NA* (05/22/23 1:06 AM) NRBC Auto 0.0 % *NA* (05/22/23 1:06 AM) NRBC Absolute [0.0-0.0 x10^3/mcL] 0.0 x1 0^3/mcL (05/22/23 1:06 AM) Slide Review RBC Morph (05/22/23 1:06 AM) UA Culture Ind?. Not Indicated (05/22/23 1:11 AM) Urine Srce Clean Catch (05/22/23 1:11 AM) Urine Volume 12 mL (05/22/23 1:11 AM) Creatinine Level [0.60-1.30 mg/dL] 1.76 mg/dL 1 *HI* (05/22/23 1:06 AM) SARS-CoV-2 (COVID-19) RP-BFire [Not Dete cted] Not Detected 2 (05/22/23 2:24 AM) Troponin-I HS [0-51 ng/L] 5 ng/L (05/22/23 1:06 AM) Anion Gap [5-15 mmol/L] 14 mmol/L (05/22/23 1:06 AM) Eos, Auto 4.3 % *NA* (05/22/23 1:06 AM) UA Yeast [None Seen] None Seen (05/22/23 1:11 AM) CK [21-232 unit/L] 21 unit/L (05/22/23 1:06 AM) 1Interpretive Data: Association of GFR and staging of kidney disease GFR With Kidney Damage Without Kidney Damage >=90 Stage 1 Normal 60-89 Stage 2 Decreased GFR 30-59 Stage 3 Stage 3 15-29 Stage 4 Stage 4 <15 or Stage 5 Stage 5 dialysis EGFR values not applicable for pediatric patients nor in those >70 years of age. 2Interpretive Data: Testing performed using the Unblab Respiratory Panel 2.1 multiplexed PCR nucleic acid test. Vital Signs Most recent to oldest [Reference Range]: 1 Temperature Oral [35.8-37.3 Deg C] 36.8 Deg C (05/22/23 12:02 AM) Peripheral Pulse Rate [60-100 bpm] 72 bp m (05/22/23 12:02 AM) Respiratory Rate [12-24 br/min] 20 br/mi n (05/22/23 12:02 AM) Blood Pressure [90-140/60-90 mmHg] 144/8 8mmHg *HI* (05/22/23 12:02 AM) Mean Arterial Pressure, Cuff [65-140 mmH g] 107 mmHg (05/22/23 12:02 AM) Social History Social History Type Response Tobacco Current everyday tob acco user Tobacco Use:. 1 Sex 1Pt states that she smokes half a pack a day. Hospital Discharge Instructions Patient Education 05/22/2023 02:50:22 Migraine Headache, Ohwv-qn-Rebw Migraine Headache A migraine headache is a [...] these instructions at home: Medicines ??? Take pfuc-tpt-mdfhbsw and prescription medicines only as told by your doctor. ??? Ask your doctor if the medicine prescribed to you: ??? Requires you to avoid driving or using heavy machinery. ??? Can cause trouble pooping (constipation). You may need to take these steps to prevent or treat trouble pooping: ??? Drink enough fluid to keep your pee (urine) pale yellow. ??? Take yope-lud-pjvmmlt or prescription medicines. ??? Eat foods that [...] provider. Document Revised: 08/18/2022 Document Reviewed: 04/18/2019 ElseSunrun Patient Education ?? 2022 [employer] Follow Up Care 05/22/2023 00:02:27 With:1. Ensure adequate oral hydration 2. Ensure adequate sleep 3. Do not drive or operate machinery forat least another 12 hours 4. Follow-up with your MD in a.m. 5. Do not smoke Address:Unknown When:1 month Patient Care team information Care Team Personnel Name: Jessee Jones TESTING ENGINEER Position: Physician Member Role: Nurse Practitioner Address: Address: [address] [place] [address], [address] [place] [address]- Name: Latyoa Marquez NP Position: Physician Member Role: Nurse Practitioner Address: Address: [address] [place] [address]- Name: Leonila Gonzalez TESTING ENGINEER Position: Physician Member Role: Nurse Practitioner Address: Address: [address] [place] [address] Name: Beth Brandt TESTING ENGINEER Position: Physician Member Role: Nurse Practitioner Address: Address: [address] [place] [address] Name: Hermes Ramirez MD Position: Physician Member Role: Informed Provider Address: Address: [address] [place] [address], [address] [place] [address]- Name: Pillo Moe NP Position: Physician Member Role: Nurse Practitioner Address: Address: [address] [place] [address], [facility] [address] [facility] Care Team Related Persons Name: STACIA JONES Address: [place] [address] [id number] Name: ROBYN JAMA
--- OUTSIDE RECORDS SUMMARY | 2024-03-20 11:46 | XMS_ITS | Continuity of Care Document ---
Author Organization [facility] Address [address] [place] [address] Care Team Providers Care Ultrasonic Cleaner Name Role Phone Hermes Ramirez Primary Care Physician Encounter MONTROSS MARILUZ [id number] Date(s): 05/04/21 - 05/04/[address] [address] [place] Encounter Diagnosis Migraine headache(Discharge Diagnosis) - 05/04/21 Discharge Disposition: Home or Self Care Attending Physician: Mike Malik MD Admitting Physician: Mike Malik MD Allergies, Adverse Reactions, Alerts Substance Reaction Severity Status gentamicin Moderate Active erythromycin Medication interaction Activ e aspirin Medication interaction Activ e Toradol Kidney failure as a complication of care Active NSAIDs Severe Active Assessment and Plan Future Appointments Functional Status 05/04/21 Family Member Travel History No recent t [...] BID, # 180 tab, 3 Refill(s), Pharmacy: [place], [place], 157, cm, 10/22/20 21:26:00 CDT, Height/Length [...] [35.8-37.3 Deg C] 37 De g C (05/04/21 2:36 PM) Peripheral Pulse Rate [60-100 bpm] 102 b pm *HI* (05/04/21 2:36 PM) Respiratory Rate [12-24 br/min] 16 br/mi n (05/04/21 2:36 PM) Blood Pressure [90-140/60-90 mmHg] 136/8 3mmHg (05/04/21 2:36 PM) Weight Dosing 77.11 kg (05/04/21 2:40 PM) Weight Estimated 77.11 kg (05/04/21 2:36 PM) Height/Length Dosing 157.480 cm (05/04/21 2:40 PM) Body Mass Index Estimated 31 (05/04/21 2:36 PM) Height/Length Estimated 157.480 cm (05/04/21 2:36 PM) Social History Social History Type Response Smoking Status 5-9 cigarettes (betw een 1/4 to 1/2 pack)/day in last 30 days entered on: 04/12/21 Sex Hospital Discharge Instructions Patient Education 05/04/2021 16:05:50 Migraine Headache Migraine Headache A migraine headache [...] these instructions at home: Medicines ??? Take uprk-vtx-scwopbf and prescription medicines only as told by your health care provider. ??? Ask your health care provider if the medicine prescribed to you: ??? Requires you to avoid driving or using heavy machinery. ??? Can cause constipation. You may need to take these actions to prevent or treat constipation: ??? Drink enough fluid to keep your urine pale yellow. ??? Take xaco-fjd-llcqafe or prescription medicines. ??? Eat foods that [...] Reviewed: 04/18/2019 Elsevier Patient Education ?? 2020 [employer] Follow Up Care 05/04/2021 14:36:29 With:Hermes Ramirez MD Address: [address] [place] [address], [address] [place] [address]- When:1 month
--- OUTSIDE RECORDS SUMMARY | 2024-03-20 11:46 | XMS_ITS | Continuity of Care Document ---
Author Organization [facility] Address [address] [place] [address] Care Team Providers Care Assessment Manager Name Role Phone Hermes Ramirez Primary Care Physician Encounter ONOFRE MCGRAW [id number] Date(s): 06/23/21 - 06/23/[address] [id number] Encounter Diagnosis Viral syndrome(Discharge Diagnosis) - 06/23/21 Discharge Disposition: Home or Self Care Attending Physician: Mike Malik MD Admitting Physician: Mike Malik MD Allergies, Adverse Reactions, Alerts Substance Reaction Severity Status gentamicin Moderate Active erythromycin Medication interaction Activ e aspirin Medication interaction Activ e Toradol Kidney failure as a complication of care Active NSAIDs Severe Active Assessment and Plan Future Appointments Diagnostic Tests Pending * Blood Culture 06/23/21 * Blood Culture 06/23/21 Future Scheduled Tests Radiology* MRI Spine Cervical w/o Contrast 06/11/21 Functional Status 06/23/21 Family Member Travel History No recent t [...] BID, # 180 tab, 3 Refill(s), Pharmacy: [place], [place], [address], cm, 10/22/20 21:26:00 CDT, Height/Length [...] Complete d Results Laboratory List Name Date BNP 06/23/21 CBC w/ Diff 06/23/21 Comprehensive Metabolic Panel 06/23/21 Automated Diff 06/23/21 Respiratory Panel 2.1 (BioFire) 06/23/21 Most recent to oldest [Reference Range]: 1 WBC [4.0-11.5 K/mcL] 9.4 K/mcL (06/23/21 8:40 PM) RBC [4.20-5.40 x10^6/mcL] 4.23 x10^6/mcL (06/23/21 8:40 PM) Neutro Auto 79.4 % *NA* (06/23/21 8:40 PM) Lymph Auto 13.1 % *NA* (06/23/21 8:40 PM) [place] Auto 5.1 % *NA* (06/23/21 8:40 PM) Basophil Auto 0.2 % *NA* (06/23/21 8:40 PM) BUN [7-18 mg/dL] 16 mg/dL (06/23/21 8:40 PM) Glucose Level [70-110 mg/dL] 90 mg/dL (06/23/21 8:40 PM) Potassium Level [3.5-5.1 mmol/L] 3.6 mmo l/L (06/23/21 8:40 PM) Baso Absolute [0.0-0.1 x10^3/mcL] 0.0 x1 0^3/mcL (06/23/21 8:40 PM) MCV [78.0-100.0 fL] 91.7 fL (06/23/21 8:40 PM) AST [15-37 unit/L] 23 unit/L (06/23/21 8:40 PM) ALT [12-78 unit/L] 27 unit/L (06/23/21 8:40 PM) MCHC [29.0-37.5 g/dL] 36.1 g/dL (06/23/21 8:40 PM) Sodium Level [136-145 mmol/L] 138 mmol/L (06/23/21 8:40 PM) Lymph Absolute [0.8-5.8 x10^3/mcL] 1.2 x 10^3/mcL (06/23/21 8:40 PM) Hct [36.0-48.0 %] 38.8 % (06/23/21 8:40 PM) Calcium Level [8.5-10.1 mg/dL] 8.3 mg/dL *LOW* (06/23/21 8:40 PM) [place] Absolute [0.1-1.5 x10^3/mcL] 0.5 x1 0^3/mcL (06/23/21 8:40 PM) Albumin Level [3.4-5.0 g/dL] 3.7 g/dL (06/23/21 8:40 PM) Protein Total [6.4-8.2 g/dL] 7.2 g/dL (06/23/21 8:40 PM) MCH [27.0-34.0 pg] 33.1 pg (06/23/21 8:40 PM) Neutro Absolute [1.5-8.1 x10^3/mcL] 7.4 x10^3/mcL (06/23/21 8:40 PM) Bilirubin Total [0.0-1.0 mg/dL] 0.6 mg/d L (06/23/21 8:40 PM) Hgb [12.0-16.0 g/dL] 14.0 g/dL (06/23/21 8:40 PM) Alk Phos [46-130 unit/L] 188 unit/L *HI* (06/23/21 8:40 PM) MPV [6.0-10.0 fL] 10.6 fL *HI* (06/23/21 8:40 PM) Platelets [150-450 K/mcL] 122 K/mcL *LOW* (06/23/21 8:40 PM) CO2 [21-32 mmol/L] 20 mmol/L *LOW* (06/23/21 8:40 PM) Eos Absolute [0.0-0.5 x10^3/mcL] 0.2 x10 ^3/mcL (06/23/21 8:40 PM) eGFR Non-AA 44 *NA* (06/23/21 8:40 PM) eGFR AA 53 *NA* (06/23/21 8:40 PM) BNP [5-100 pg/mL] 16 pg/mL (06/23/21 8:40 PM) Chloride Level [97-107 mmol/L] 107 mmol/ L (06/23/21 8:40 PM) RDW-CV [11.5-15.0 %] 12.2 % (06/23/21 8:40 PM) Adenovirus RespP-BFire [Not Detected] No t Detected (06/23/21 8:16 PM) Bordetella parapertussis RespP-BFire [No t Detected] Not Detected (06/23/21 8:16 PM) Bordetella pertussis RespP-BFire [Not De tected] Not Detected (06/23/21 8:16 PM) Chlamydophila pneumoniae RespP-BFire [No t Detected] Not Detected (06/23/21 8:16 PM) Coronavirus 229E (Not COVID-19) RP-BFire [Not Detected] Detected *ABN* (06/23/21 8:16 PM) Coronavirus HKU1 (Not COVID-19) RP-BFire [Not Detected] Not Detected (06/23/21 8:16 PM) Coronavirus NL63 (Not COVID-19) RP-BFire [Not Detected] Not Detected (06/23/21 8:16 PM) Coronavirus OC43 (Not COVID-19) RP-BFire [Not Detected] Not Detected (06/23/21 8:16 PM) Human Metapneumonovirus RespP-BFire [Not Detected] Not Detected (06/23/21 8:16 PM) Human Rhinovirus/Enterovirus RespP-BFir [Not Detected] Not Detected (06/23/21 8:16 PM) Influenza A RespP-BFire [Not Detected] N ot Detected (06/23/21 8:16 PM) Influenza B RespP-BFire [Not Detected] N ot Detected (06/23/21 8:16 PM) Mycomplasma pneumoniae RespP-BFire [Not Detected] Not Detected (06/23/21 8:16 PM) Parainfluenza Virus 1 RespP-BFire [Not D etected] Not Detected (06/23/21 8:16 PM) Parainfluenza Virus 2 RespP-BFire [Not D etected] Not Detected (06/23/21 8:16 PM) Parainfluenza Virus 3 RespP-BFire [Not D etected] Not Detected (06/23/21 8:16 PM) Parainfluenza Virus 4 RespP-BFire [Not D etected] Not Detected (06/23/21 8:16 PM) Respiratory Syncytial Virus RespP-BFire [Not Detected] Not Detected (06/23/21 8:16 PM) Imm Gran Absolute [0.0-0.1 x10^3/mcL] 0. 0 x10^3/mcL (06/23/21 8:40 PM) Imm Gran Auto 0.3 % *NA* (06/23/21 8:40 PM) NRBC Auto 0.0 % *NA* (06/23/21 8:40 PM) NRBC Absolute [0.0-0.0 x10^3/mcL] 0.0 x1 0^3/mcL (06/23/21 8:40 PM) Creatinine Level [0.60-1.30 mg/dL] 1.42 mg/dL *HI* (06/23/21 8:40 PM) SARS-CoV-2 (COVID-19) RP-BFire [Not Dete cted] Not Detected (06/23/21 8:16 PM) Employed in healthcare? No *NA* (06/23/21 8:16 PM) Symptomatic as defined by CDC? Yes *NA* (06/23/21 8:16 PM) Hospitalized due to COVID-19? No *NA* (06/23/21 8:16 PM) In ICU? No *NA* (06/23/21 8:16 PM) Group care resident? No *NA* (06/23/21 8:16 PM) status? Not *NA* (06/23/21 8:16 PM) Anion Gap [5-15 mmol/L] 15 mmol/L (06/23/21 8:40 PM) Eos, Auto 1.9 % *NA* (06/23/21 8:40 PM) Radiology Reports * Exam Date Time Procedure Performing Provider Status 06/23/21 8:18 PM XR Chest 1 View Marleny Ardon RT(R)(M ); Auth (Verified) Notes: (XR Chest 1 View) Reason For Exam: cough XR Chest 1 View EXAM DESCRIPTION: XR Chest 1 View REASON FOR STUDY: cough/cold DURATION: 1 week but worse last 2 days Comparisons: 04/11/21 PREVIOUS SURGERY: kidney transplant/liver transplant/hernia repair//breast cyst removal SMOKING HISTORY: 03/23 ppd smoker TECHNIQUE: One radiographic view of the chest acquired. COMPARISON: 04/11/2021 FINDINGS: LUNGS/PLEURA: No focal consolidation or pneumothorax. No pleural effusion. HEART/MEDIASTINUM: Heart size is normal. Normal mediastinal and hilar contours. HARDWARE/LINES/TUBES: None. BONES: No acute findings. OTHER: No other significant finding. IMPRESSION: No acute cardiopulmonary disease. THIS IS AN ELECTRONICALLY VERIFIED FINAL REPORT 06/23/2021 8:46 PM - Electronically signed by Stevo Coker M.D. RW: HOSEA Report ID: [id number] Reading Location: [place] [address] Final Dictated by: Stevo Coker Dictated DT/TM: 06/23/2021 8:49 pm Signed by: Stevo Coker MD Signed (Electronic Signature): 06/23/2021 8:49 pm Vital Signs Most recent to oldest [Reference Range]: 1 2 3 Temperature Oral [35.8-37.3 Deg C] 37.1 Deg C (06/23/21 7:36 PM) Peripheral Pulse Rate [60-100 bpm] 84 bpm (06/23/21 10:34 PM) 80 bpm (06/23/21 9:41 PM) 134 bpm *HI* (06/23/21 7:36 PM) Respiratory Rate [12-24 br/min] 18 br/min (06/23/21 10:34 PM) 16 br/min (06/23/21 9:41 PM) 18 br/min (06/23/21 7:36 PM) Blood Pressure [90-140/60-90 mmHg] 139/89mmHg (06/23/21 10:34 PM) 140/90mmHg (06/23/21 9:41 PM) 165/90mmHg *HI* (06/23/21 7:36 PM) Weight Dosing 77.11 kg (06/23/21 8:03 PM) Weight Estimated 77.11 kg (06/23/21 7:36 PM) Height/Length Dosing 157.480 cm (06/23/21 8:03 PM) Body Mass Index Estimated 31 (06/23/21 7:36 PM) Height/Length Estimated 157.480 cm (06/23/21 7:36 PM) Social History Social History Type Response Smoking Status 5-9 cigarettes (betw een 1/4 to 1/2 pack)/day in last 30 days entered on: 05/12/21 Sex Hospital Discharge Instructions Patient Education 06/23/2021 21:52:40 Viral Illness, Adult Viral Illness, Adult Viruses are tiny germs that can get into a person's body and cause illness. There are many different types of viruses, and they cause many types of illness. Viral illnesses can range from mild to severe. They can affect various parts of the body. Common illnesses that are caused by a virus include colds and the flu (influenza). Viral illnesses also include serious conditions, such as HIV (human immunodeficiency virus) infection and AIDS (acquired immunodeficiency syndrome). A few viruses have been linked to [...] Medicines to relieve symptoms. These can include awhl-ibw-lsrdrsz medicine for pain and fever, medicines for cough or congestion, and medicines to relieve diarrhea. ??? Antiviral medicines. These medicines are available only for certain types of viruses. They may help reduce flu symptoms if taken early in the infection. There are also many antiviral medicines for hepatitis and for HIV and AIDS. Some viral illnesses can be prevented with vaccinations. A common example is the flu shot. Follow these instructions at home: Medicines ??? Take etbi-qyv-jampzwy and prescription medicines only as told by [...] and water are not available, use hand flap maker. ??? Avoid touching your nose, eyes, and [...] with your health care provider. Document Revised: 01/14/2020 Document Reviewed: 01/14/2020 [employer] Patient Education ?? 2020 [employer] Follow Up Care 06/23/2021 19:36:05 With:Hermes Ramirez MD Address: [address] [place] [address], [address] [place] [address]- When:1 month Note * Stevo Coker MD: VERIFY, VERIFY, PERFORM Event Display: Report Authored Date: [id number] EXAM DESCRIPTION: XR Chest 1 View REASON FOR STUDY: cough/cold DURATION: 1 week but worse last 2 days Comparisons: 04/11/21 PREVIOUS SURGERY: kidney transplant/liver transplant/hernia repair//breast cyst removal SMOKING HISTORY: 03/23 ppd smoker TECHNIQUE: One radiographic view of the chest acquired. COMPARISON: 04/11/2021 FINDINGS: LUNGS/PLEURA: No focal consolidation or pneumothorax. No pleural effusion. HEART/MEDIASTINUM: Heart size is normal. Normal mediastinal and hilar contours. HARDWARE/LINES/TUBES: None. BONES: No acute findings. OTHER: No other significant finding. IMPRESSION: No acute cardiopulmonary disease. THIS IS AN ELECTRONICALLY VERIFIED FINAL REPORT 06/23/2021 8:46 PM - Electronically signed by Stevo Coker M.D. RW: [place] Report ID: [id number] Reading Location: [place] [address] Final Dictated by: Stevo Coker Dictated DT/TM: 06/23/2021 8:49 pm Signed by: Stevo Coker MD Signed (Electronic Signature): 06/23/2021 8:49 pm Care Team Personnel Name: Hermes Ramirez MD Address: [address] [place] [address], [address] [place] [address]
--- OUTSIDE RECORDS SUMMARY | 2024-03-20 11:46 | XMS_ITS | Continuity of Care Document ---
Author Organization [facility] Address [address] [place] [address] Care Team Providers Care Childcare [facility] Administrator Name Role Phone Hermes Ramirez Primary Care Physician Encounter ONOFRE MARILUZ [id number] Date(s): 01/27/22 - 01/27/[address] [address] [place] Encounter Diagnosis Degenerative disc disease, cervical(Discharge Diagnosis) - 01/27/22 Migraine headache(Discharge Diagnosis) - 01/27/22 Diarrhea(Discharge Diagnosis) - 01/27/22 Discharge Disposition: Home or Self Care Attending [...] # 6.7 g, 0 Refill(s), Pharmacy: [facility] [place], [place], 73, cm, 09/13/21 23:53:00 CDT, Height/Length [...] every 4 hr, PRN as needed, # 20 cap, 0 Refill(s), Pharmacy: [place], [place], [address], cm, 01/27/22 20:27:00 RELAYS DRAFTSPERSON, Height/Length Dosing, 75, kg, 01/27/22 20:27:00 RELAYS DRAFTSPERSON, Weight Dosing Start Date: 01/27/22 Status: Ordered butalbital/acetaminophen/caffeine 50 mg-300 mg-40 mg oral capsule 1 cap, Oral, every 4 hr, PRN as needed, # 12 cap, 0 Refill(s), Pharmacy: [place], [place], [address], cm, 11/04/21 20:02:00 CDT, Height/Length Dosing, 73, kg, 11/04/21 20:02:00 CDT, Weight Dosing Start Date: 11/04/21 Status: Ordered ciprofloxacin 500 mg oral tablet 500 mg = 1 tab, Oral, every 12 hr, # 14 tab, 0 Refill(s), Pharmacy: [facility], 157, cm, 01/01/22 18:29:00 CDT, Height/Length Dosing, [...] BID, # 180 tab, 3 Refill(s), Pharmacy: [place], [place], [address], cm, 10/22/20 21:26:00 CDT, Height/Length Dosing, 74, kg, 10/22/20 21:26:00 CDT, Weight Dosing Start Date: 12/18/20 Status: Ordered ondansetron 4 mg oral tablet, disintegrating 4 mg = 1 tab, Oral, every 6 hr, PRN nausea/vomiting, # 12 tab, 0 Refill(s), Pharmacy: [place], [place], [address], cm, 11/04/21 20:02:00 CDT, Height/Length [...] nausea/vomiting, # 20 tab, 0 Refill(s), Pharmacy: [place], [place], [address], cm, 09/29/21 23:03:00 CDT, Height/Length [...] needed., # 2 tab, 0 Refill(s), Pharmacy: [facility] [place], [place], 157, cm, 01/05/22 0:17:00 CDT, Height/Length [...] Oral [35.8-37.3 Deg C] 37.0 Deg C (01/27/22 8:18 PM) Peripheral Pulse Rate [60-100 bpm] 112 b pm *HI* (01/27/22 8:18 PM) Respiratory Rate [12-24 br/min] 18 br/mi n (01/27/22 8:18 PM) Blood Pressure [90-140/60-90 mmHg] 169/9 7mmHg *HI* (01/27/22 8:18 PM) Weight Dosing 75.00 kg (01/27/22 8:27 PM) Weight Estimated 75.00 kg (01/27/22 8:18 PM) Height/Length Dosing 157.000 cm (01/27/22 8:27 PM) Height/Length Estimated 157.000 cm (01/27/22 8:18 PM) Social History Social History Type Response Tobacco Current some day tob acco user Tobacco Use:. Sex Hospital Discharge Instructions Patient Education 01/27/2022 20:46:28 Migraine Headache Migraine Headache A migraine headache [...] these instructions at home: Medicines ??? Take qamj-ety-moqhhvh and prescription medicines only as told by your health care provider. ??? Ask your health care provider if the medicine prescribed to you: ??? Requires you to avoid driving or using heavy machinery. ??? Can cause constipation. You may need to take these actions to prevent or treat constipation: ??? Drink enough fluid to keep your urine pale yellow. ??? Take vera-fiq-eaovgqr or prescription medicines. ??? Eat foods that [...] provider. Document Revised: 06/28/2019 Document Reviewed: 04/18/2019 [employer] Patient Education ?? 2021 [employer]. 01/27/2022 20:46:11 Diarrhea, Adult Diarrhea, Adult Diarrhea is frequent loose and watery bowel movements. Diarrhea can make you feel weak and cause you to become dehydrated. Dehydration can make you tired and thirsty, cause you to have a dry mouth, and decrease how often you urinate. Diarrhea typically lasts 2???3 days. However, it can last longer if it is a sign of something more serious. It is important to treat your diarrhea as told by your health care provider. Follow these instructions at home: Eating and drinking Follow these recommendations as told by your health care provider: ??? Take an oral rehydration solution (ORS). This is an xynr-sli-fvedssn medicine that helps returnyour body to its normal balance of nutrients and water. It is found at pharmacies and retail stores. ??? Drink plenty of fluids, such as water, ice chips, diluted fruit juice, and low-calorie sports drinks. You can drink milk also, if desired. ??? Avoid drinking fluids that contain a lot of sugar or caffeine, such as energy drinks, sports drinks, and soda. ??? Eat bland, qpma-jt-ronylp foods in small amounts as you are able. These foods include bananas, applesauce, rice, lean meats, toast, and crackers. ??? Avoid alcohol. ??? Avoid spicy or fatty foods. Medicines ??? Take xkxa-jlc-plqstdz and prescription medicines only as told by your health care provider. ??? If you were prescribed an antibiotic medicine, take it as told by your health care provider. Donot stop using the antibiotic even if you start to feel better. General instructions ??? Wash your hands often using soap and water. If soap and water are not available, use a hand ship's carpenter. Others in the household should wash their hands as well. Hands should be washed: ??? After using the toilet or changing a diaper. ??? Before preparing, cooking, or serving food. ??? While caring for a sick person or while visiting someone in a hospital. ??? Drink enough fluid to keep your urine pale yellow. ??? Rest at home while you recover. ??? Watch your condition for any changes. ??? Take a warm bath to relieve any burning or pain from frequent diarrhea episodes. ??? Keep all follow-up visits as told by your health care provider. This is important. Contact a health care provider if: ??? You have a fever. ??? Your diarrhea gets worse. ??? You have new symptoms. ??? You cannot keep fluids down. ??? You feel light-headed or dizzy. ??? You have a headache. ??? You have muscle cramps. Get help right away if: ??? You have chest pain. ??? You feel extremely weak or you faint. ??? You have bloody or black stools or stools that look like tar. ??? You have severe pain, cramping, or bloating in your abdomen. ??? You have trouble breathing or you are breathing very quickly. ??? Your heart is beating very quickly. ??? Your skin feels cold and clammy. ??? You feel confused. ??? You have signs of dehydration, such as: ??? Dark urine, very little urine, or no urine. ??? Cracked lips. ??? Dry mouth. ??? Sunken eyes. ??? Sleepiness. ??? Weakness. Summary ??? Diarrhea is frequent loose and watery bowel movements. Diarrhea can make you feel weak and cause you to become dehydrated. ??? Drink enough fluids to keep your urine pale yellow. ??? Make sure that you wash your hands after using the toilet. If soap and water are not available,use hand ship's carpenter. ??? Contact a health care provider if your diarrhea gets worse or you have new symptoms. ??? Get help right away if you have signs of dehydration. This information is not intended to replace advice given to you by your health care provider. Make sure you discuss any questions you have with your health care provider. Document Revised: 07/23/2019 Document Reviewed: 08/10/2018 [employer] Patient Education ?? 2021 [employer] Follow Up Care 01/27/2022 20:18:13 With:Hermes Ramirez MD Address: [address] [place] [address], [address] [place] [address]- When:3 to 5 days Physician Emergency department Note * Akil Casas MD: PERFORM Event Display: ED Note Physician Authored Date: MISHA JACKSON :1980 Age:41 years Sex:Female Visit Date:01/27/2022 Primary Care Physician: Hermes Ramirez MD Basic Information Time Seen: Akil Casas MD / 01/27/2022 20:18 Chief Complaint Normal migraine headache since this am with nausea and vomitting x2 , ??rates pain 10/27, ??no prehospital tx History Of Present Illness: 41-year-old woman with history of chronic migraines, renal??and hepatic transplant,??and cervical disc disease comes to the emergency department complaining of??headache typical for her migraine,??nausea,??and vomiting x2.?? She states that she took some Tylenol today but??it did not help her symptoms.?? Recent MRI shows??cervical disc disease??that may be contributing to her pain. ??She is not currently taking anything other than Tylenol for her symptoms.?? She denies fever, cough or cold symptoms, shortness of breath. Review of Systems: Constitutional:?No??fevers,?No??chills Eye:?No??recent visual problems ENT:??No??nasal congestion,?No??sore throat Respiratory:?No??shortness of breath,?No??cough Cardiovascular:?No??Chest pain,?No??palpitations,?No??syncope Gastrointestinal:?Positive fornausea,?Positive for??vomiting,?Positive for??diarrhea Genitourinary:?No??hematuria Musculoskeletal:??No??back pain,??No??neck pain,??No??joint pain,??No??muscle pain,??No??decreased range of motion Integumentary:?No??rash,?No??pruritus,?No??abrasions Neurologic: No weakness, no numbness Psychiatric:?No??anxiety,?No??depression Physical Exam Vitals & Measurements T:??37.0?C ??(Oral)?? HR:??112??(Peripheral)?? RR:??18?? BP:??169/97?? SpO2:??100%?? HT:??157.000??cm?? WT:??75.00??kg??(Estimated)?? Pain Score:??8?? O2 Therapy:??Room air?? General: Alert and oriented, well nourished,?Moderate acute distress Eye: PERRL, EOMI,?Normal??conjunctiva HENT: Normocephalic, moist oral mucosa,?No??scleral icterus Lungs: Clear to auscultation and percussion,?Non-labored?? respiration Heart:?Normal?? rate,?Regular??rhythm,?No??murmur,?No??gallop,?No??edema Musculoskeletal:?Normal?? range of motion and strength,?No??tenderness,?No??swelling Skin: Skin is warm, dry and pink,?No??rashes,?No??lesions Neurologic: Awake, alert and oriented X4, CN II-XII intact Psychiatric: Cooperative, appropriate mood and affect ?? Procedure No Qualifying Data Assessment/Plan 1.??Degenerative disc disease, cervical??M50.30 Has follow up arranged with surgeon. 2.??Migraine headache??G43.909 3.??Diarrhea??R19.7 Further w/u if symptoms persist.?? Recent course of ciprofloxacin for UTI and also is on immunomodulatory meds. Orders: butalbital/acetaminophen/caffeine 50 mg-300 mg-40 mg oral capsule, 1 cap, Oral, every 4 hr, PRN as needed, # 20 cap, 0 Refill(s), Pharmacy: [facility] [place], [place], [address], cm, 01/27/22 20:27:00 RELAYS DRAFTSPERSON, Height/Length Dosing, 75, kg, 01/27/22 20:27:00 RELAYS DRAFTSPERSON, Weight Dosing Benadryl, 50 mg = 1 mL, Slow IV Push, Injection, Once, First Dose: 01/27/22 20:31:00 RELAYS DRAFTSPERSON, Stop Date: 01/27/22 20:31:00 RELAYS DRAFTSPERSON, Physician Stop morphine, 4 mg = 1 mL, Slow IV Push, Injection, Once, First Dose: 01/27/22 20:35:00 RELAYS DRAFTSPERSON, Stop Date:01/27/22 20:35:00 RELAYS DRAFTSPERSON, Physician Stop Phenergan, 25 mg = 1 mL, IM, Injection, Once, First Dose: 01/27/22 20:31:00 RELAYS DRAFTSPERSON, Stop Date: 01/27/22 20:31:00 RELAYS DRAFTSPERSON, Physician Stop NS bolus, 500 mL, IV Bolus, Soln-IV, Once, Administer over: 0.5 hr, First Dose: 01/27/22 21:00:00 RELAYS DRAFTSPERSON, Stop Date: 01/27/22 21:00:00 RELAYS DRAFTSPERSON, Physician Stop, 999 mL/hr Discharge Patient, 01/27/22 21:16:00 RELAYS DRAFTSPERSON, Home Independently, Constant Indicator Start IV, 01/27/22 20:35:00 RELAYS DRAFTSPERSON, Once, Stop date 01/27/22 20:35:00 RELAYS DRAFTSPERSON Patient Discharge Condition Fair Discharge Disposition Home Patient Education Migraine Headache Diarrhea, Adult Follow Up With When Contact Information Hermes Ramirez MD Within 3 to 5 days [facility] [address] [place] [id number]- Additional Instructions: Medication Reconciliation Changed butalbital/acetaminophen/caffeine (butalbital/acetaminophen/caffeine 50 mg-300 mg-40 mg oral capsule)1 Capsules Oral (given by mouth) every 4 hours as needed. Refills: 0. ?? butalbital/acetaminophen/caffeine (butalbital/acetaminophen/caffeine 50 mg-300 mg-40 mg oral capsule)1 Capsules Oral (given by mouth) every 4 hours as needed. Refills: 0. ?? Unchanged albuterol (albuterol 90 [...] Oral (given by mouth) every day. ?? ciprofloxacin (ciprofloxacin 500 mg oral tablet)1 [...] Family History Cancer: Mother. Electronically Signed on 01/27/22 09:19 PM Akil Casas MD Patient Care team information Care Team Personnel Name: Jessee Jones WALL WORKER Position: Physician Member Role: Nurse Practitioner Address: Address: [address] [place] [address], [address] Name: Latoya Marquez WALL WORKER Position: Physician Member Role: Nurse Practitioner Address: Address: [address] [place] [address] Name: Leonila Gonzalez WALL WORKER Position: Physician Member Role: Nurse Practitioner Address: Address: [address] [place] [address]- Name: Beth Brandt WALL WORKER Position: Physician Member Role: Nurse Practitioner Address: Address: [address] [place] [id number] Name: Hermes Ramirez MD Position: Physician Member Role: Informed Provider Address: Address: [address] [place] [address], [address] [place] [id number]- Name: Pillo Moe WALL WORKER Position: Physician Member Role: Nurse Practitioner Address: Address: [address] [place] [address], [address] [facility] Name: Carson Hood RN Position: Nurse Member Role: ED Nurse Name: Akil Casas MD Position: Physician Member Role: Admitting Physician Care Team Related Persons Name: STACIA JONES Address: Home [address], [place] [id number] Name: ROBYN JAMA Address: Home
--- OUTSIDE RECORDS SUMMARY | 2024-03-20 11:46 | XMS_ITS | Continuity of Care Document ---
Author Organization [facility] Address [address] [place] [address] Care Team Providers Care Hydraulic Elevator Constructor Name Role Phone SophieHermes west Primary Care Physician [phone] Encounter PRINCETON MARILUZ [id number] Date(s): 12/21/23 - 12/21/[address] [phone] [place] Encounter Diagnosis Migraine headache(Discharge Diagnosis) - 12/21/23 Discharge Disposition: Home or Self Care Attending [...] Daily, # 30 tab, 11 Refill(s), Pharmacy: [place], [place], [address], cm, 01/04/23 15:03:00 CDT, Height/Length Dosing, 81.65, kg, 01/04/23 15:03:00 CDT, Weight Dosing Start Date: 01/11/23 Status: Ordered aspirin 81 mg oral delayed release tablet 81 mg = 1 tab, Oral, Daily, # 30 tab, 0 Refill(s) Start Date: 04/05/21 Status: Ordered gabapentin 300 mg oral capsule 600 mg = 2 cap, Oral, BID, # 120 cap, 2 Refill(s), Pharmacy: [facility], 157.[address], cm, 07/23/23 17:59:00 CDT, Height, [...] BID, # 60 cap, 11 Refill(s), Pharmacy: [place], [place], [address], cm, 01/04/23 15:03:00 CDT, Height/Length Dosing, 81.65, kg, 01/04/23 15:03:00 CDT, Weight Dosing Start Date: 01/11/23 Status: Ordered Nicotrol Inhaler 10 mg inhalation device See Instructions, 6-16 cartriges/day, # 1 EA, 2 Refill(s), Pharmacy: [id number], 157.[address], cm, 08/29/23 14:22:00 CDT, Height, 88, kg, 08/29/23 14:27:00 CDT, Weight Dosing Start Date: 08/29/23 Status: Ordered pantoprazole 40 mg oral delayed release tablet 1 tab, Oral, Daily, # 90 tab, 0 Refill(s), Pharmacy: [id number], 157.48, cm, 06/07/23 16:07:00 CDT, Height, 89.36, [...] QID, # 360 tab, 0 Refill(s), Pharmacy: [id number], 157.48, cm, 08/29/23 14:22:00 CDT, Height, 88, kg, 08/29/23 14:27:00 CDT, Weight Dosing Start Date: 09/05/23 Status: Ordered venlafaxine 37.5 mg oral capsule, extended release 37.5 mg = 1 cap, Oral, Daily, # 90 cap, 0 Refill(s), Pharmacy: [id number], 157.48, cm, 09/28/23 18:18:00 CDT, Height, 81.65, kg, 09/28/23 18:20:00 CDT, Weight Dosing Start Date: 11/22/23 Status: Ordered Mental Status 12/21/23 Eye Opening Response [place] Spontaneous ly Best Verbal Response [place] Oriented Best Motor Response [place] Obeys comman ds [place]ira Coma Score 15 [...] 1, 2 08/24/23 Completed Screening Pap Smear; lAlison ramirez, Preparing And Conveyance Of Cervical/Vaginal Smear [...] Oral [35.8-37.3 Deg C] 37.0 Deg C (12/21/23 8:44 PM) Peripheral Pulse Rate [60-100 bpm] 73 bp m (12/21/23 10:05 PM) 79 bpm (12/21/23 8:44 PM) Respiratory Rate [12-24 br/min] 16 br/mi n (12/21/23 10:05 PM) 16 br/min (12/21/23 8:44 PM) Blood Pressure [90-120/60-80 mmHg] 146/9 2mmHg *HI* (12/21/23 10:05 PM) 144/92mmHg *HI* (12/21/23 9:53 PM) Weight 81.65 kg (12/21/23 8:44 PM) Weight Dosing 81.650 kg (12/21/23 8:44 PM) Height 157.48 cm (12/21/23 8:44 PM) Body Mass Index 32.92 kg/m2 (12/21/23 8:44 PM) Social History Social History Type Response Tobacco Current everyday tob acco user Tobacco Use:. Sex Sex Representation Female (finding) Hospital Discharge Instructions Patient Education 12/21/2023 21:41:45 Migraine Headache, Ryif-iv-Qdyt Migraine Headache A migraine headache is a [...] these instructions at home: Medicines ??? Take mfqc-rzi-gimspex and prescription medicines only as told by your doctor. ??? Ask your doctor if the medicine prescribed to you: ??? Requires you to avoid driving or using heavy machinery. ??? Can cause trouble pooping (constipation). You may need to take these steps to prevent or treat trouble pooping: ??? Drink enough fluid to keep your pee (urine) pale yellow. ??? Take ldee-bgw-hythydb or prescription medicines. ??? Eat foods that [...] provider. Document Revised: 08/18/2022 Document Reviewed: 04/18/2019 [employer] Patient Education ?? 2022 [employer] Follow Up Care 12/21/2023 20:36:04 With:Follow up with primary care provider Address:Unknown When:3 to 5 days Comments:Rest in quiet dark room avoid cheese chocolate 1 follow-up with PMD in 3 to 4 days or as needed. Patient Care team information Care Team Personnel Name: Robert, Jessee PROSTHETICS ASSISTANT Position: Physician Member Role: Nurse Practitioner Address: [address] [facility], [address] [place] [phone]- Name: Latoya Marquez PROSTHETICS ASSISTANT Position: Physician Member Role: Nurse Practitioner Address: [address] [place] [address]- Name: Leonila Gonzalez PROSTHETICS ASSISTANT Position: Physician Member Role: Nurse Practitioner Address: [address] [place] [address]- Name: Beth Brandt PROSTHETICS ASSISTANT Position: Physician Member Role: Nurse Practitioner Address: [address] [facility], [place] [id number] [place] Name: Hermes Ramirez MD Position: Physician Member Role: Informed Provider Address: [address] [facility], [address] [place] [phone]- Name: Pillo Moe PROSTHETICS ASSISTANT Position: Physician Member Role: Nurse Practitioner Address: [address] [facility], [address] [facility] Care Team Related Persons Name: STACIA JONES Name: ROBYN JAMA Name: ANIF CHOI Name: MADY CHEN Name: MADY CHEN Insurance Providers Guarantor name: MISHA JACKSON Health Plan Information #: 1 Payer: [employer] Member Number: [id number] Policy Number: NA Health Plan Information #: 2 Payer: [employer] APPROVED Member Number: [id number] Policy Number:
--- OUTSIDE RECORDS SUMMARY | 2024-03-20 11:46 | XMS_ITS | Continuity of Care Document ---
Author Organization [facility] Address [address] [place] [address] Care Team Providers Care Supervisor Nuclear Medicine Name Role Phone Hermes Ramirez Chris Primary Care Physician [phone] Encounter ONOFREEver MCGRAW [id number] Date(s): 03/25/22 - 03/25/[address] [address] Encounter Diagnosis Headache, chronic migraine without aura(Discharge Diagnosis) - 03/25/22 Discharge Disposition: Home or Self Care Attending Physician: Jesus Khan MD Admitting Physician: Jesus Khan MD Allergies, Adverse Reactions, Alerts Substance Reaction Severity Status codeine Unknown Itching Severe Active gentamicin Moderate Active erythromycin Medication interaction Activ e azithromycin Unknown Severe Active aspirin Medication interaction Severe Activ e Toradol Kidney failure as a complication of care Severe Active NSAIDs Severe Active Functional Status 03/25/22 Family Member Travel History No recent t [...] g, 0 Refill(s), Pharmacy: [facility] [place], [place], [address], cm, 09/13/21 23:53:00 CDT, Height/Length [...] needed, # 12 cap, 0 Refill(s), Pharmacy: [place], [place], [address], cm, 11/04/21 20:02:00 CDT, Height/Length [...] BID, # 180 tab, 3 Refill(s), Pharmacy: [facility], 157.48, cm, 02/07/22 18:45:00CST, Height/Length Dosing, 72.57, kg, 02/07/22 18:45:00 BUS COMPANY MANAGER, Weight Dosing Start Date: 02/13/22 Status: Ordered morphine 4 mg/mL preservative-free injectable solution 4 mg = 1 mL, IM, Once, 0 Refill(s) Start Date: 03/19/22 Status: Ordered oseltamivir 30 mg oral capsule 30 mg = 1 cap, Oral, BID, # 10 cap, 0 Refill(s), Pharmacy: [place], [place], [address], cm, 03/16/22 18:01:00 BUS COMPANY MANAGER, Height/Length Dosing, 77.11, kg, 03/16/22 18:01:00 BUS COMPANY MANAGER, Weight Dosing Start Date: 03/16/22 Status: [...] nausea/vomiting, # 20 tab, 0 Refill(s), Pharmacy: [place], [place], [address], cm, 09/29/21 23:03:00 CDT, Height/Length [...] (Accula) from Swab collected on 16-MAR-2022 17:54:00 BUS COMPANY MANAGER tested positive for COVID-19. Procedures Procedure Date Related Diagnosis Body Site Status Bladder washout 12/14/20 Completed Kidney transplant 05/13/20 Complet ed Tx - Liver transplantation 05/08/20 Completed delivery Complet ed cyst removal from breast Completed Hernia Completed liver transplant Complete d Vital Signs Most recent to oldest [Reference Range]: 1 Temperature Oral [35.8-37.3 Deg C] 36.6 Deg C (03/25/22 8:55 PM) Peripheral Pulse Rate [60-100 bpm] 119 b pm *HI* (03/25/22 8:55 PM) Respiratory Rate [12-24 br/min] 18 br/mi n (03/25/22 8:55 PM) Blood Pressure [90-140/60-90 mmHg] 147/9 3mmHg *HI* (03/25/22 8:55 PM) Weight 74.84 kg (03/25/22 8:55 PM) Weight Dosing 74.84 kg (03/25/22 9:04 PM) Height 157.480 cm (03/25/22 8:55 PM) Height/Length Dosing 157.480 cm (03/25/22 9:04 PM) Body Mass Index 30.000 kg/m2 (03/25/22 8:55 PM) Social History Social History Type Response Smoking Status 5-9 cigarettes (betw een 1/4 to 1/2 pack)/day in last 30 days entered on: 05/12/21 Sex Hospital Discharge Instructions Patient Education 03/25/2022 21:37:50 Chronic Migraine Headache, Dqeq-es-Jtus Chronic Migraine Headache A migraine headache is [...] these instructions at home: Medicines ??? Take xxwb-mqi-kptkaca and prescription medicines only as told by [...] provider. Document Revised: 04/22/2020 Document Reviewed: 04/22/2020 [employer] Patient Education ?? 2021 [employer] 03/25/2022 21:37:48 Migraine Headache, Xekf-ju-Lxdm Migraine Headache A migraine headache is a [...] these instructions at home: Medicines ??? Take soau-fes-rapatyb and prescription medicines only as told by your doctor. ??? Ask your doctor if the medicine prescribed to you: ??? Requires you to avoid driving or using heavy machinery. ??? Can cause trouble pooping (constipation). You may need to take these steps to prevent or treat trouble pooping: ??? Drink enough fluid to keep your pee (urine) pale yellow. ??? Take kinl-yrx-zmqqysr or prescription medicines. ??? Eat foods that [...] provider. Document Revised: 06/28/2019 Document Reviewed: 04/18/2019 [employer] Patient Education ?? 2021 [employer]. Follow Up Care 03/25/2022 20:55:48 With:Hermes Ramirez MD Address: [address] [place] [address], [address] [place] [address]- When:1 week Comments:Continue other home medications.?? Follow-up with??pain clinic. ??Follow-up with neurologist. Physician Emergency department Note * Jesus Khan MD: PERFORM Event Display: ED Note Physician Authored Date: [id number] MISHA JACKSON :1980 Age:41 years Sex:Female Visit Date:03/25/2022 Primary Care Physician: Hermes Ramirez MD Basic Information Time Seen: Jesus Khan MD / 03/25/2022 21:16 Chief Complaint Pt arrives to ED with c/o headache from hell . Started last night. Has taken Fioricet earlier withno relief. History Of Present Illness: 41 years old female??with history of chronic migraine headaches. ??Also history of liver??and renaltransplant. ??Comes in with??similar symptoms of a migraine headache.?? Patient has multiple visits??to the ER??same complaints.?? Wanting pain medication for her migraine.?? Review of Systems: Constitutional:?No??fevers,?No??chills,?No??sweats Eye:?No??recent visual problems ENT:?No??ear pain,?No??nasal congestion,?No??sore throat Respiratory:?No??shortness of breath,?No??cough Cardiovascular:?No??Chest pain,?No??palpitations,?No??syncope Gastrointestinal:?Positive fornausea,?No??vomiting,?No??diarrhea Genitourinary:?No??hematuria Clemente/Lymph:?No??bruising tendency,?No??swollen lymph glands Endocrine:?No??excessive thirst,??No??excessive hunger Musculoskeletal:??No??back pain,??No??neck pain,??No??joint pain,??No??muscle pain,??No??decreased range of motion Integumentary:?No??rash,?No??pruritus,?No??abrasions Neurologic: Alert & oriented X 4 Psychiatric:?No??anxiety,?No??depression Physical Exam Vitals & Measurements T:??36.6?C ??(Oral)?? HR:??119??(Peripheral)?? RR:??18?? BP:??147/93?? SpO2:??98%?? HT:??157.480??cm?? WT:??74.84??kg?? BMI:??30.000?? Pain Score:??10?? O2 Therapy:??Room air?? General: [...] appropriate mood and affect Medical Decision Makin mg IM.?? Diphenhydramine 50 mg IM.?? Morphine??sulfate 4 mg IM. Procedure No Qualifying Data Assessment/Plan 1.??Headache, chronic migraine without aura??G43.709 Orders: Benadryl, 50 mg = 1 mL, IM, Injection, Once, First Dose: 03/25/22 21:27:00 BUS COMPANY MANAGER, Stop Date: 03/25/2320:27:00 BUS COMPANY MANAGER, Physician Stop morphine, 4 mg = 1 mL, IM, Injection, Once, First Dose: 03/25/22 21:28:00 BUS COMPANY MANAGER, Stop Date: 03/25/22 21:28:00 BUS COMPANY MANAGER, Physician Stop Phenergan, 25 mg = 1 tab, Oral, Tab, Once, First Dose: 03/25/22 21:27:00 BUS COMPANY MANAGER, Stop Date: 03/25/22 21:27:00 BUS COMPANY MANAGER, Physician Stop Chronic migraine headaches.?? History of liver transplant. ??History of renal transplant.?? Follow-up with??PCP. ??Follow-up with specialist. Patient Discharge Condition Stable Discharge Disposition Discharge home Patient Education Chronic Migraine Headache, Uefh-oj-Ptay Migraine Headache, Wmlt-lt-Rfgr Follow Up With When Contact Information Hermes Ramirez MD Within [address] [place] [address], [address] [place] [phone]- Additional Instructions: Continue other home medications.?? Follow-up with??pain clinic. ??Follow-up with neurologist. Medication Reconciliation Unchanged albuterol (albuterol 90 mcg/inh [...] Attestation Follow-up with PCP Electronically Signed on 03/25/22 09:38 PM Jesus Khan MD Patient Care team information Personnel Name: Hermes Ramirez MD Address: Address: [address] [place] [address], [address] [place] [address]
--- OUTSIDE RECORDS SUMMARY | 2024-03-20 11:46 | XMS_ITS | Continuity of Care Document ---
Author Organization [facility] Address [address] [place] [address] Care Team Providers Care Roofing Foreman Name Role Phone Hermes Ramirez Primary Care Physician [phone] Encounter ONOFRE MCGRAW [id number] Date(s): 05/29/22 - 05/29/[address] [address] Encounter Diagnosis RUQ pain(Discharge Diagnosis) - 05/29/22 Discharge Disposition: Home or Self Care Attending [...] wheezing, # 6.7 g, 0 Refill(s), Pharmacy: [place], [place], [address], cm, 09/13/21 23:53:00 CDT, Height/Length [...] needed, # 12 cap, 0 Refill(s), Pharmacy: [place], [place], [address], cm, 11/04/21 20:02:00 CDT, Height/Length [...] 18:45:00CST, Height/Length Dosing, 72.57, kg, 02/07/22 18:45:00 OXYGEN EQUIPMENT TECHNICIAN, Weight Dosing Start Date: 02/13/22 Status: Ordered morphine 2 mg/mL preservative-free injectable solution 2 mg = 1 mL, IM, Once, 0 Refill(s) Start Date: 05/05/22 Status: Ordered oseltamivir 30 mg oral capsule 30 mg = 1 cap, Oral, BID, # 10 cap, 0 Refill(s), Pharmacy: [place], [place], [address], cm, 12/28/22 18:01:00 OXYGEN EQUIPMENT TECHNICIAN, Height/Length Dosing, 77.11, kg, 03/16/22 18:01:00 OXYGEN EQUIPMENT TECHNICIAN, Weight Dosing Start Date: 03/16/22 Status: Ordered Pepcid 20 mg oral tablet 20 mg = 1 tab, Oral, BID, 0 Refill(s) Start Date: 09/29/20 Status: Ordered Phenergan 25 mg oral tablet 25 mg = 1 tab, Oral, every 6 hr, PRN as needed for nausea/vomiting, # 20 tab, 0 Refill(s), Pharmacy: [facility], [place], [address], cm, 09/29/21 23:03:00 CDT, Height/Length Dosing, [...] 0 Refill(s) Start Date: 05/17/21 Status: Ordered traMADol 50 mg oral tablet 50 mg = 1 tab, Oral, every 6 hr, PRN as needed for pain, # 20 tab, 0 Refill(s), 06/05/22 3:06:00 CDT, Pharmacy: [id number], [address], cm, 05/29/22 1:18:00 OXYGEN EQUIPMENT TECHNICIAN, Height/Length Dosing, 77, kg, 05/29/22 1:18:00 OXYGEN EQUIPMENT TECHNICIAN, Weight Dosing Start Date: 05/29/22 Stop Date: 06/05/22 Status: Ordered venlafaxine 37.5 mg oral capsule, [...] Name Date Urinalysis with Culture if Indicated 05/18 05/12 .Urine Volume 05/29/22 Urinalysis Microscopic 05/29/22 Amylase Level 05/29/22 CBC w/ Diff 05/29/22 Comprehensive Metabolic Panel 05/29/22 GGT 05/29/22 Lipase Level 05/29/22 Automated Diff 05/29/22 Most recent to oldest [Reference Range]: 1 WBC [4.0-11.5 K/mcL] 6.0 K/mcL (05/29/22 1:18 AM) RBC [4.20-5.40 x10^6/mcL] 3.79 x10^6/mcL *LOW* (05/29/22 1:18 AM) Neutro Auto 70.5 % *NA* (05/29/22 1:18 AM) Lymph Auto 19.7 % *NA* (05/29/22 1:18 AM) [place] Auto 6.8 % *NA* (05/29/22 1:18 AM) Basophil Auto 0.2 % *NA* (05/29/22 1:18 AM) BUN [7-18 mg/dL] 20 mg/dL *HI* (05/29/22 1:18 AM) UA Color Yellow (05/29/22 1:28 AM) UA WBC [0-5] None (05/29/22 1:28 AM) Glucose Level [70-110 mg/dL] 112 mg/dL *HI* (05/29/22 1:18 AM) Potassium Level [3.5-5.1 mmol/L] 3.7 mmo l/L (05/29/22:18 AM) Baso Absolute [0.0-0.1 x10^3/mcL] 0.0 x1 0^3/mcL (05/29/22 1:18 AM) MCV [78.0-100.0 fL] 92.9 fL (05/29/22: AM) UA Urobilinogen [Normal mg/dL] Normal mg /dL (05/29/22 1:28 AM) UA Bili [Negative mg/dL] Negative mg/dL (05/29/22 1:28 AM) UA Ketones [Negative mg/dL] Negative mg/ dL (05/29/22 1:28 AM) AST [15-37 unit/L] 36 unit/L (05/29/22 1:18 AM) Amylase Level [25-115 unit/L] 34 unit/L (05/29/22:18 AM) ALT [12-78 unit/L] 115 unit/L *HI* (05/29/22 1:18 AM) MCHC [29.0-37.5 g/dL] 33.5 g/dL (05/29/22:18 AM) Sodium Level [136-145 mmol/L] 142 mmol/L (05/29/22 1:18 AM) UA RBC [0-3] None (05/29/22 1:28 AM) UA Leuk Est [Negative Guille/mcL] Negative Guille/mcL (05/29/22 1:28 AM) Lymph Absolute [0.8-5.8 x10^3/mcL] 1.2 x 10^3/mcL (05/29/22 1:18 AM) UA Nitrite [Negative] Negative (05/29/22 1:28 AM) UA Glucose [Normal mg/dL] Normal mg/dL (05/29/22 1:28 AM) Hct [36.0-48.0 %] 35.2 % *LOW* (05/29/22 1:18 AM) UA Bacteria [None Seen] Occasional *ABN* (05/29/22 1:28 AM) Lipase Level [73-393 unit/L] 61 unit/L *LOW* (05/29/22 1:18 AM) Calcium Level [8.5-10.1 mg/dL] 8.8 mg/dL (05/29/22 1:18 AM) Bronx Absolute [0.1-1.5 x10^3/mcL] 0.4 x1 0^3/mcL (05/29/22 1:18 AM) Albumin Level [3.4-5.0 g/dL] 3.1 g/dL *LOW* (05/29/22 1: AM) Protein Total [6.4-8.2 g/dL] 6.9 g/dL (05/29/22 1:18 AM) UA Protein [Negative mg/dL] Negative mg/ dL (05/29/22 1:28 AM) MCH [27.0-34.0 pg] 31.1 pg (05/29/22 1:18 AM) Neutro Absolute [1.5-8.1 x10^3/mcL] 4.2 x10^3/mcL (05/29/22 1:18 AM) Bilirubin Total [0.0-1.0 mg/dL] 0.3 mg/d L (05/29/22 1:18 AM) Hgb [12.0-16.0 g/dL] 11.8 g/dL *LOW* (05/29/22 1:18 AM) Alk Phos [46-130 unit/L] 440 unit/L *HI* (05/29/22 1:18 AM) UA Blood [Negative Rocael/mcL] Negative Rocael /mcL (05/29/22 1:28 AM) MPV [6.0-10.0 fL] 9.9 fL (05/29/22 1:18 AM) UA Mucous [None Seen] None Seen (05/29/22 1:28 AM) UA Spec Grav 1.020 (05/29/22 1:28 AM) Platelets [150-450 K/mcL] 132 K/mcL *LOW* (05/29/22 1:18 AM) CO2 [21-32 mmol/L] 24 mmol/L (05/29/22 1:18 AM) Eos Absolute [0.0-0.5 x10^3/mcL] 0.2 x10 ^3/mcL (05/29/22 1:18 AM) UA Squam Epithelial [None Seen] Occasion al (05/29/22 1:28 AM) GGT [5-55 unit/L] 400 unit/L *HI* (05/29/22 1:18 AM) UA pH [5.0-9.0] 6.0 (05/29/22 1:28 AM) eGFR Non-AA 43 *NA* (05/29/22 1:18 AM) eGFR AA 52 *NA* (05/29/22 1:18 AM) UA Appear [Clear] Clear (05/29/22 1:28 AM) Chloride Level [97-107 mmol/L] 109 mmol/ L *HI* (05/29/22 1:18 AM) RDW-CV [11.5-15.0 %] 12.4 % (05/29/22 1:18 AM) Imm Gran Absolute [0.0-0.1 x10^3/mcL] 0. 0 x10^3/mcL (05/29/22 1:18 AM) Imm Gran Auto 0.3 % *NA* (05/29/22 1:18 AM) NRBC Auto 0.0 % *NA* (05/29/22 1:18 AM) NRBC Absolute [0.0-0.0 x10^3/mcL] 0.0 x1 0^3/mcL (05/29/22 1:18 AM) UA Culture Ind?. Not Indicated (05/29/22 1:28 AM) Urine Srce Clean Catch (05/29/22 1:28 AM) Urine Volume 12 mL (05/29/22 1:28 AM) Creatinine Level [0.60-1.30 mg/dL] 1.45 mg/dL *HI* (05/29/22 1:18 AM) Anion Gap [5-15 mmol/L] 13 mmol/L (05/29/22 1:18 AM) Eos, Auto 2.5 % *NA* (05/29/22 1:18 AM) UA Yeast [None Seen] None Seen (05/29/22 1:28 AM) Vital Signs Most recent to oldest [Reference Range]: 1 Temperature Oral [35.8-37.3 Deg C] 36.5 Deg C (05/29/22 12:38 AM) Peripheral Pulse Rate [60-100 bpm] 100 b pm (05/29/22 12:38 AM) Blood Pressure [90-140/60-90 mmHg] 134/7 2mmHg (05/29/22 12:38 AM) Weight 77.00 kg (05/29/22 12:38 AM) Weight Dosing 77.00 kg (05/29/22 1:18 AM) Height 157.000 cm (05/29/22 12:38 AM) Height/Length Dosing 157.000 cm (05/29/22 1:18 AM) Body Mass Index 31.000 kg/m2 (05/29/22 12:38 AM) Social History Social History Type Response Tobacco Current everyday tob acco user Tobacco Use:. Sex Hospital Discharge Instructions Patient Education 05/29/2022 03:27:53 Abdominal Pain, Adult Abdominal Pain, Adult Pain [...] these instructions at home: Medicines ??? Take znot-jvq-rxgtfxn and prescription medicines only as told by [...] your condition for any changes. ??? Take klzy-hbt-lveztnk and prescription medicines only as told by [...] provider. Document Revised: 04/24/2020 Document Reviewed: 07/15/2019 [employer] Patient Education ?? 2021 [employer]. Follow Up Care 05/29/2022 00:38:43 With:[facility] Address: [phone] When:2 to 4 days With:Hermes Ramirez MD Address: [address] [place] [address], [address] [place] [address]- When:1 to 2 days Comments:It is imperative that you be evaluated by the transplant team at [facility].?? If you develop fever, vomiting,??yellowing of your skin or eyes,??worsening pain or new concerning symptoms, return to the emergency department. Patient Care team information Care Team Personnel Name: Jessee Jones SERVER ADMINISTRATOR Position: Physician Member Role: Nurse Practitioner Address: Address: [address] [place] [address], [address] [place] [address]- Name: Latoya Marquez SERVER ADMINISTRATOR Position: Physician Member Role: Nurse Practitioner Address: Address: [address] [place] [address]- Name: Leonila Gonzalez SERVER ADMINISTRATOR Position: Physician Member Role: Nurse Practitioner Address: Address: [address] [place] [address]- Name: Beth Brandt SERVER ADMINISTRATOR Position: Physician Member Role: Nurse Practitioner Address: Address: [address] [place] [address] [place] [address] Name: Hermes Ramirez MD Position: Physician Member Role: Informed Provider Address: Address: [address] [facility], [address] [place] [address]- Name: Pillo Moe SERVER ADMINISTRATOR Position: Physician Member Role: Nurse Practitioner Address: Address: [address] [place] [address], [address] [facility] Name: Akil Casas MD Position: Physician Member Role: Admitting Physician Name: Tori Villalpando RN Position: Nurse Member Role: Registered Nurse Care Team Related Persons Name: STACIA JONES Address: Home [address] [place] [phone] Name: ROBYN JAMA Address: Home
--- OUTSIDE RECORDS SUMMARY | 2024-03-20 11:46 | XMS_ITS | Continuity of Care Document ---
Author Organization [facility] Address [address] [place] [address]- Care Team Providers Care Diesel Fleet Mechanic Name Role Phone SophieHermes west Primary Care Physician [phone] Encounter(s) 01/03/20 - 01/03/20 [facility] [place] [address] [place] [address]- Discharge Disposition: Home or Self Care Allergies, Adverse Reactions, Alerts Substance Reaction Severity Status erythromycin Medication interaction Activ e aspirin Medication interaction Activ e Toradol Kidney failure as a complication of care Active Assessment and Plan Future Scheduled Tests Laboratory* COVID-19 Testing Send Out - [place] 10/25/19 Immunizations Given and Recorded Vaccine [...] chew, # 30 cap, 2 Refill(s), [id number] Start Date: 12/30/19 Status: Ordered metoprolol succinate 50 mg oral tablet, extended release 50 mg = 1 tab, Oral, Daily, # 30 tab, 0 Refill(s) Start Date: 12/30/19 Status: Ordered Prograf 2 mg =, Oral, every 12 hr, 0 Refill(s) Start Date: 12/18/18 Status: Ordered promethazine 25 mg oral tablet 25 mg =, Oral, every 6 hr, PRN nausea/vomiting, # 20 tab, 0 Refill(s), Pharmacy: [id number] Start Date: 04/28/19 Stop Date: 05/03/19 Status: Ordered sodium bicarbonate 650 mg oral tablet 1,300 mg = 2 tab, Oral, TID, # 60 tab, 0 Refill(s) Start Date: 12/18/18 Status: Ordered tiZANidine 2 mg oral capsule 2 mg = 1 cap, Oral, every 8 hr, PRN as needed for muscle spasm, # 90 cap, 0 Refill(s), Pharmacy: [facility] #[id number] Start Date: 09/27/19 Stop Date: 10/27/19 [...]
--- OUTSIDE RECORDS SUMMARY | 2024-03-20 11:46 | XMS_ITS | Continuity of Care Document ---
Author Organization [facility] Address [address] [place] [address]- Care Team Providers Care Clinical Resource Coordinator Name Role Phone VijayHermes alicea Primary Care Physician [phone] Encounter ONOFRE Date(s): 12/26/19 - 12/26/19 [facility] [address] [place] [address]- Encounter Diagnosis Abscess(Discharge Diagnosis) - 12/26/19 Migraine headache(Discharge Diagnosis) - 12/26/19 Discharge Disposition: Home or Self Care Attending Physician: Zeny Chapin NP Allergies, Adverse Reactions, Alerts Substance Reaction Severity Status erythromycin Medication interaction Activ e aspirin Medication interaction Activ e Toradol Kidney failure as a complication of care Active Assessment and Plan Future Appointments Future Scheduled Tests Laboratory* COVID-19 Testing Send Out - [place] [facility] 10/25/19 Functional Status 12/26/19 Other exposure to Infectious Disease COV ID-19 Symptoms Present Immunizations Given and Recorded Vaccine Date Status Refusal Reason hepatitis B adult vaccine 11/10/17 Recorded hepatitis B adult vaccine 10/09/17 Recorded hepatitis A adult vaccine 10/09/17 Recorded tetanus/diphth/pertuss (Tdap) adult/adol 05/10/17 Recorded tetanus/diphth/pertuss (Tdap) adult/adol 03/20/17 Recorded tetanus/diphth/pertuss (Tdap) adult/adol 05/25/12 Recorded Medications Bactrim 400 mg-80 mg oral tablet 1 tab, Oral, BID, X 10 days, # 20 tab, 0 Refill(s), 01/05/20 15:26:00 CDT, Pharmacy: [facility]#[id number] Start Date: 12/26/19 Stop Date: 01/05/20 Status: Ordered butorphanol 10 mg/mL nasal spray 1 sprays, Nasal, every 6 hr, PRN as needed for pain, # 2.5 mL, 0 Refill(s), Pharmacy: [facility]#[id number] Start Date: 12/04/19 Stop Date: 01/03/20 Status: Ordered Diflucan 150 mg oral tablet 150 mg = 1 tab, Oral, Once, # 1 tab, 1 Refill(s), Pharmacy: [id number] Start Date: 12/02/19 Status: Ordered Imitrex 6 mg/0.5 mL subcutaneous solution 6 mg = 0.5 mL, Subcutaneous, Daily, PRN as needed for migraine headache, # 2 EA, 0 Refill(s), 01/02/20 15:34:00 CDT, Pharmacy: [id number] Start Date: 12/26/19 Stop Date: 01/02/20 Status: Ordered Metoprolol Succinate ER 25 mg oral tablet, extended release 25 mg = 1 tab, Oral, BID, TAKE 1 TABLET BY MOUTH TWICE A DAY, # 60 tab, 5 Refill(s), [id number] Start Date: 10/09/19 Stop Date: 04/06/20 Status: Ordered Prograf 2 mg =, Oral, every 12 hr, 0 Refill(s) Start Date: 12/18/18 Status: Ordered promethazine 25 mg oral tablet 25 mg =, Oral, every 6 hr, PRN nausea/vomiting, # 20 tab, 0 Refill(s), [id number] Start Date: 04/28/19 Stop Date: 05/03/19 Status: Ordered sodium bicarbonate 650 mg oral tablet 1,300 mg = 2 tab, Oral, TID, # 60 tab, 0 Refill(s) Start Date: 12/18/18 Status: Ordered tiZANidine 2 mg oral capsule 2 mg = 1 cap, Oral, every 8 hr, PRN as needed for muscle spasm, # 90 cap, 0 Refill(s), [id number] Start Date: 09/27/19 Stop Date: 10/27/19 [...] 1 Temperature Tympanic [36.6-37.9 Deg C] 3 7.0 Deg C (12/26/19 2:31 PM) Peripheral Pulse Rate [60-100 bpm] 98 bp m (12/26/19 2:31 PM) Respiratory Rate [14-20 br/min] 18 br/mi n (12/26/19 2:31 PM) Blood Pressure [90-140/60-90 mmHg] 133/8 6mmHg (12/26/19 2:31 PM) Weight 77.11 kg (12/26/19 2:31 PM) Height 157.48 cm (12/26/19 2:31 PM) BSA Measured 1.84 m2 (12/26/19 2:31 PM) Body Mass Index Measured 31.09 kg/m2 (12/26/19 2:31 PM) Social History Social History Type Response Smoking Status 4 or less cigarettes (less than 1/4 pack)/day in last 30 days entered on: 07/16/19 Sex Hospital Discharge Instructions Patient Education 12/26/2019 17:02:20 Skin Abscess Skin Abscess A skin abscess is an infected area on or under your skin that contains a collection of pus and other material. An abscess may also be called a furuncle, carbuncle, or boil. An abscess can occur in oron almost any part of your body. Some abscesses break open (rupture) on their own. Most continue to get worse unless they are treated. The infection can spread deeper into the body and eventually into your blood, which can make you feel ill. Treatment usually involves draining the abscess. What are the causes? An abscess occurs when germs, like bacteria, pass through your skin and cause an infection. This may be caused by: ??? A scrape or cut on your skin. ??? A puncture wound through your skin, including a needle injection or insect bite. ??? Blocked oil or sweat glands. ??? Blocked and infected hair follicles. ??? A cyst that forms beneath your skin (sebaceous cyst) and becomes infected. What increases the risk? This condition is more likely to develop in people who: ??? Have a weak body defense system (immune system). ??? Have diabetes. ??? Have dry and irritated skin. ??? Get frequent injections or use illegal IV drugs. ??? Have a foreign body in a wound, such as a splinter. ??? Have problems with their lymph system or veins. What are the signs or symptoms? Symptoms of this condition include: ??? A painful, firm bump under the skin. ??? A bump with pus at the top. This may break through the skin and drain. Other symptoms include: ??? Redness surrounding the abscess site. ??? Warmth. ??? Swelling of the lymph nodes (glands) near the abscess. ??? Tenderness. ??? A sore on the skin. How is this diagnosed? This condition may be diagnosed based on: ??? A physical exam. ??? Your medical history. ??? A sample of pus. This may be used to find out what is causing the infection. ??? Blood tests. ??? Imaging tests, such as an ultrasound, CT scan, or MRI. How is this treated? A small abscess that drains on its own may not need treatment. Treatment for larger abscesses may include: ??? Moist heat or heat pack applied to the area several times a day. ??? A procedure to drain the abscess (incision and drainage). ??? Antibiotic medicines. For a severe abscess, you may first get antibiotics through an IV and then change to antibiotics by mouth. Follow these instructions at home: Medicines ??? Take wwrj-yng-crzsfvj and prescription medicines only as told by your health care provider. ??? If you were prescribed an antibiotic medicine, take it as told by your health care provider. Donot stop taking the antibiotic even if you start to feel better. Abscess care ??? If you have an abscess that has not drained, apply heat to the affected area. Use [...] a greater risk of getting burned. ??? Follow instructions from your health care provider about how to take care of your abscess. Makesure you: ??? Cover the abscess with a bandage (dressing). ??? Change your dressing or gauze as told by your health care provider. ??? Wash your hands with soap and water before you change the dressing or gauze. If soap and water are not available, use hand computer installation engineer. ??? Check your abscess every day for signs of a worsening infection. Check for: ??? More redness, swelling, or pain. ??? More fluid or blood. ??? Warmth. ??? More pus or a bad smell. General instructions ??? To avoid spreading the infection: ??? Do not share personal care items, towels, or hot tubs with others. ??? Avoid making skin contact with other people. ??? Keep all follow-up visits as told by your health care provider. This is important. Contact a health care provider if you have: ??? More redness, swelling, or pain around your abscess. ??? More fluid or blood coming from your abscess. ??? Warm skin around your abscess. ??? More pus or a bad smell coming from your abscess. ??? A fever. ??? Muscle aches. ??? Chills or a general ill feeling. Get help right away if you: ??? Have severe pain. ??? See red streaks on your skin spreading away from the abscess. Summary ??? A skin abscess is an infected area on or under your skin that contains a collection of pus and other material. ??? A small abscess that drains on its own may not need treatment. ??? Treatment for larger abscesses may include having a procedure to drain the abscess and taking an antibiotic. This information is not intended to replace advice given to you by your health care provider. Make sure you discuss any questions you have with your health care provider. Document Released: 12/14/2005 Document Revised: 06/27/2019 Document Reviewed: 04/19/2018 [employer] Patient Education ?? 2019 [employer]. 12/26/2019 17:02:16 Migraine Headache Migraine Headache A migraine headache [...] these instructions at home: Medicines ??? Take bypi-lna-kdxcahb and prescription medicines only as told by your health care provider. ??? Ask your health care provider if the medicine prescribed to you: ??? Requires you to avoid driving or using heavy machinery. ??? Can cause constipation. You may need to take these actions to prevent or treat constipation: ??? Drink enough fluid to keep your urine pale yellow. ??? Take rrpc-xkh-ufhfvgv or prescription medicines. ??? Eat foods that [...] with your health care provider. Document Released: 03/06/2006 Document Revised: 06/28/2019 Document Reviewed: 04/18/2019 [employer] Patient Education ?? 2020 [employer] Follow Up Care 12/26/2019 13:55:48 With:Hermes Ramirez MD Address: [address] [place] [address], [address] [place] [address]- When:2 to 4 days
--- OUTSIDE RECORDS SUMMARY | 2024-03-20 11:47 | XMS_ITS | Continuity of Care Document ---
Author Organization [facility] Address [address] [place] [address] Care Team Providers Care Cuff Runner Name Role Phone Hermes Ramirez Primary Care Physician [phone] Encounter [facility] [id number] Date(s): 06/10/22 - 06/10/[address] [address]- Encounter Diagnosis Migraine headache(Discharge Diagnosis) - 06/10/22 Discharge Disposition: Home or Self Care Attending [...] Extracted from: Title:Clinical Document Author:Flaquita Angela RN Date:06/10/22 Diagnosis: 1. Migraine heada artis Comment: Diagnosis: Headache - Recurrent Comment: pt home with her son Te Byrd driving given instructions to followup she did not want the paper copy of her instructions Future Scheduled Tests Laboratory* Giardia lamblia Ag, [...] wheezing, # 6.7 g, 0 Refill(s), Pharmacy: [place], [place], 73, cm, 09/13/21 23:53:00 CDT, Height/Length [...] needed, # 12 cap, 0 Refill(s), Pharmacy: [place], [place], 157, cm, 11/04/21 20:02:00 CDT, Height/Length [...] BID, # 180 tab, 3 Refill(s), Pharmacy: [facility], 157.48, cm, 02/07/22 18:45:00CST, Height/Length Dosing, 72.57, kg, 02/07/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:45: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, Weight Dosing Start Date: 02/13/22 Status: Ordered morphine 2 mg/mL preservative-free injectable solution 2 mg = 1 mL, IM, Once, 0 Refill(s) Start Date: 05/05/22 Status: Ordered oseltamivir 30 mg oral capsule 30 mg = 1 cap, Oral, BID, # 10 cap, 0 Refill(s), Pharmacy: [place], [place], 157.48, cm, 03/16/22 18:01: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, Height/Length Dosing, 77.11, kg, 03/16/22 18:01: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, Weight Dosing Start Date: 03/16/22 Status: Ordered Pepcid 20 mg oral tablet 20 mg = 1 tab, Oral, BID, 0 Refill(s) Start Date: 09/29/20 Status: Ordered Phenergan 25 mg oral tablet 25 mg = 1 tab, Oral, every 6 hr, PRN as needed for nausea/vomiting, # 20 tab, 0 Refill(s), Pharmacy: [place], [place], [address], cm, 09/29/21 23:03:00 CDT, Height/Length [...] Oral [35.8-37.3 Deg C] 36.7 Deg C (06/10/22 9:15 PM) Peripheral Pulse Rate [60-100 bpm] 79 bp m (06/10/22 9:15 PM) 84 bpm (06/10/22 9:00 PM) Respiratory Rate [12-24 br/min] 20 br/mi n (06/10/22 9:15 PM) 20 br/min (06/10/22 9:00 PM) Blood Pressure [90-140/60-90 mmHg] 132/7 4mmHg (06/10/22 9:15 PM) 136/70mmHg (06/10/22 9:00 PM) Weight Dosing 77.00 kg (06/10/22 9:21 PM) Weight Estimated 77.00 kg (06/10/22 9:15 PM) Height/Length Dosing 157.000 cm (06/10/22 9:21 PM) Height/Length Estimated 157.000 cm (06/10/22 9:15 PM) Social History Social History Type Response Tobacco Current everyday tob acco user Tobacco Use:. Sex Hospital Discharge Instructions Patient Education 06/10/2022 21:55:08 Migraine Headache, Ffly-og-Jngr Migraine Headache A migraine headache is a [...] these instructions at home: Medicines ??? Take eeiw-jaj-gnrqygp and prescription medicines only as told by your doctor. ??? Ask your doctor if the medicine prescribed to you: ??? Requires you to avoid driving or using heavy machinery. ??? Can cause trouble pooping (constipation). You may need to take these steps to prevent or treat trouble pooping: ??? Drink enough fluid to keep your pee (urine) pale yellow. ??? Take etdh-sdj-hsqgekf or prescription medicines. ??? Eat foods that [...] provider. Document Revised: 06/28/2019 Document Reviewed: 04/18/2019 [employer] Patient Education ?? 2021 [employer]. Follow Up Care 06/10/2022 21:15:34 With:Follow up with primary care provider Address: When:5 to 7 days Physician Emergency department Note * Felicia Roach MD: PERFORM Event Display: ED Note Physician Authored Date: [id number] MISHA JACKSON :1980 Age:41 years Sex:Female Visit Date:06/10/2022 Primary Care Physician: Hermes Ramirez MD Basic Information Time Seen: Felicia Roach MD / 06/10/2022 21:33 Chief Complaint c/o migraine since am thinks weather may be contributing to it this is her 5th ER visit this month states like usual migraine c/o photophobia and nausea pain right side of head into neck no head injury requests ice pack it was given took fioricet x 2 History Of Present Illness: 41-year-old female who frequents the ER for recurrent??tractable migraines. 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 Chronic back pain.?? Pain syndrome chronic neck pain.? ? Chronic ear infections.?? Is a similar headaches in the past. Review of Systems: Constitutional:?No??fevers,?No??chills,?No??sweats Eye:?No??recent visual problems ENT:?No??ear pain,?No??nasal congestion,?No??sore throat Respiratory:?No??shortness of breath,?No??cough Cardiovascular:?No??Chest pain,?No??palpitations,?No??syncope Gastrointestinal:?Nonausea,?No??vomiting,?No??diarrhea Genitourinary:?No??hematuria Clemente/Lymph:?No??bruising tendency,?No??swollen lymph glands Endocrine:?No??excessive thirst,??No??excessive hunger Musculoskeletal:??No??back pain,??No??neck pain,??No??joint pain,??No??muscle pain,??No??decreased range of motion Integumentary:?No??rash,?No??pruritus,?No??abrasions Neurologic: Alert & oriented X 4 Psychiatric:?No??anxiety,?No??depression Physical Exam Vitals & Measurements T:??36.7?C ??(Oral)?? HR:??79??(Peripheral)?? RR:??20?? BP:??132/74?? SpO2:??99%?? HT:??157.000??cm?? WT:??77.00??kg??(Estimated)?? Pain Score:??8?? O2 Therapy:??Room air?? General: Alert and oriented, well nourished,?No??acute distress. ??Normotensive and afebrile Eye: PERRL, EOMI,?Normal??conjunctiva. ??Photosensitive HENT: Normocephalic, clear tympanic membranes,?Normal?? hearing, moist oral mucosa,?No??scleral icterus,?No??sinus tenderness Neck: Supple, non-tender,?No??carotid bruits,?No??JVD,?No??lymphadenopathy Lungs:??Clear to auscultation?? Respiration:??Non-Labored Heart:?Normal?? rate,?Regular??rhythm,?No??murmur,?No??gallop,?No??edema Abdomen: Soft, non-tender, non-distended,?Normal?? bowel sounds,?No??masses Musculoskeletal:?Normal?? range of motion and strength,?No??tenderness,?No??swelling Skin: Skin is warm, dry and pink,?No??rashes,?No??lesions Neurologic: Awake, alert and oriented X4, CN II-XII intact Psychiatric: Cooperative, appropriate mood and affect Procedure No Qualifying Data Assessment/Plan 1.??Migraine headache??G43.909 See PCP for further evaluation management Patient Discharge Condition Stable Discharge Disposition Discharge to home Patient Education Migraine Headache, Egru-xr-Bfnf Follow Up With When Contact Information Follow [...] Mother. Attending Attestation Stable Electronically Signed on 06/10/22 09:55 PM Felicia Roach MD Discharge summary * Flaquita Angela RN: PERFORM Event Display: Discharge Note Authored Date: [id number] Diagnosis: 1. Migraine headache Comment: Diagnosis: Headache - Recurrent Comment: pt home with her son Te Byrd driving given instructions to followup she did not want the paper copy of her instructions Electronically Signed on 06/10/22 10:26 PM Flaquita Angela RN Patient Care team information Care Team Personnel Name: Jessee Jones BRAID PATTERN SETTER Position: Physician Member Role: Nurse Practitioner Address: Address: [address] [place] [address], [address] [place] [address]- Name: Latoya Marquez BRAID PATTERN SETTER Position: Physician Member Role: Nurse Practitioner Address: Address: [address] [place] [address]- Name: Leonila Gonzalez BRAID PATTERN SETTER Position: Physician Member Role: Nurse Practitioner Address: Address: [address] [place] [address]- Name: Beth Brandt BRAID PATTERN SETTER Position: Physician Member Role: Nurse Practitioner Address: Address: [address] [place] [address] Name: Hermes Ramirez MD Position: Physician Member Role: Informed Provider Address: Address: [address] [facility], [address] [place] [address]- Name: Pillo Moe BRAID PATTERN SETTER Position: Physician Member Role: Nurse Practitioner Address: Address: [address] [place] [address], [address] [facility] Name: Felicia Roach MD Position: Physician Member Role: Admitting Physician Address: Address: [address] [place] [address] Name: Flaquita Angela RN Position: Nurse Member Role: ED Nurse Care Team Related Persons Name: STACIA BYRD Address: Home [address] [place], [place] [id number] Name: ROBYN JAMA Address: Home
--- OUTSIDE RECORDS SUMMARY | 2024-03-20 11:47 | XMS_ITS | Continuity of Care Document ---
Author Organization [facility] Address [address] [place] [address] Care Team Providers Care Branch Associate Name Role Phone Hermes Ramirez Primary Care Physician Encounter ONOFREEver MCGRAW [id number] Date(s): 12/07/22 - 12/08/[address] [address] [place] Encounter Diagnosis Viral upper respiratory infection(Discharge Diagnosis) - 12/07/22 Discharge Disposition: Home or Self Care Attending [...] Complete 2+ Views Right 07/04/22 Functional Status 12/07/22 Family Member Travel History No recent t [...] Daily, # 30 tab, 0 Refill(s), Pharmacy: [place], [place], 157, cm, 09/10/22 15:23:00 CDT, Height/Length [...] BID, # 60 cap, 0 Refill(s), Pharmacy: [place], [place], 157, cm, 09/10/22 15:23:00 CDT, Height/Length [...] Oral [35.8-37.3 Deg C] 36.6 Deg C (12/07/22 11:24 PM) Peripheral Pulse Rate [60-100 bpm] 93 bp m (12/07/22 11:24 PM) Respiratory Rate [12-24 br/min] 18 br/mi n (12/07/22 11:24 PM) Blood Pressure [90-140/60-90 mmHg] 159/9 9mmHg *HI* (12/07/22 11:24 PM) Weight Dosing 81.65 kg (12/07/22 11:35 PM) Weight Estimated 81.65 kg (12/07/22 11:24 PM) Height/Length Dosing 157.480 cm (12/07/22 11:35 PM) Height/Length Estimated 157.480 cm (12/07/22 11:24 PM) Social History Social History Type Response Tobacco Current everyday tob acco user Tobacco Use:. Sex Hospital Discharge Instructions Patient Education 12/07/2022 23:54:52 Viral Respiratory Infection Viral Respiratory Infection A [...] home: Managing pain and congestion ??? Take pffx-stp-qbeqpqx and prescription medicines only as told by [...] water are not available, use alcohol-based hand manager outpatient. ??? Cover your mouth when you cough. [...] provider. Document Revised: 06/10/2021 Document Reviewed: 06/10/2021 [employer] Patient Education ?? 2022 [employer]. 12/07/2022 23:54:41 Upper Respiratory Infection, Adult Upper Respiratory Infection, Adult An upper respiratory infection (URI) is a common viral infection of the nose, throat, and upper airpassages that lead to the lungs. The most common type of URI is the common cold. URIs usually get better on their own, without medical treatment. What are the causes? A URI is caused by a virus. You may catch a virus by: ??? Breathing in droplets from an infected person's cough or sneeze. ??? Touching something that has been exposed to the virus (is contaminated) and then touching your mouth, [...] have nasal allergies or asthma. ??? You are experiencing a lot of stress. ??? You have poor nutrition. What are the signs or symptoms? A URI usually involves some of the following symptoms: ??? Runny or stuffy (congested) nose. ??? Cough. ??? Sneezing. ??? Sore throat. ??? Headache. ??? Fatigue. ??? Fever. ??? Loss of appetite. ??? Pain in your forehead, behind your eyes, and over your cheekbones (sinus pain). ??? Muscle aches. ??? Redness or irritation of the eyes. ??? Pressure in the ears or face. How is this diagnosed? This condition may be diagnosed based on your medical history and symptoms, and a physical exam. Your health care provider may use a swab to take a mucus sample from your nose (nasal swab). This sample can be tested to determine what virus is causing the illness. How is this treated? URIs usually get better on their own within 7???10 days. Medicines cannot cure URIs, but your health care provider may recommend certain medicines to help relieve symptoms, such as: ??? Jmir-jqb-touykip cold medicines. ??? Cough suppressants. Coughing is a type of defense against infection that helps to clear the respiratory system, so take these medicines only as recommended by your health care provider. ??? Fever-reducing medicines. Follow these instructions at home: Activity ??? Rest as needed. ??? If you have a fever, stay home from work or school until your fever is gone or until your health care provider says your URI cannot spread to other people (is no longer contagious). Your health care provider may have you wear a face mask to prevent your infection from spreading. Relieving symptoms ??? Gargle with a mixture of salt and water [...] to keep your urine pale yellow. ??? Eat soups and other clear broths. General instructions ??? Take bmup-zto-uofaeuy and prescription medicines only as told by your health care provider. These include cold medicines, fever reducers, and cough suppressants. ??? Do not use any products that contain nicotine or tobacco. These products include cigarettes, chewing tobacco, and vaping devices, such as e-cigarettes. If you need help quitting, ask your health care provider. ??? Stay away from secondhand smoke. ??? Stay up to date on all immunizations, including the yearly (annual) flu vaccine. ??? Keep all follow-up visits. This is important. How to prevent the spread of infection to others URIs can be contagious. To prevent the infection from spreading: ??? Wash your hands with soap and water for at least 20 seconds. If soap and water are not available, use hand manager outpatient. ??? Avoid touching your mouth, face, eyes, or nose. ??? Cough or sneeze into a tissue or your sleeve or elbow instead of into your hand or into the air. Contact a health care provider if: ??? You are getting worse instead of better. ??? You have a fever or chills. ??? Your mucus is brown or red. ??? You have yellow or brown discharge coming from your nose. ??? You have pain in your face, especially when you bend forward. ??? You have swollen neck glands. ??? You have pain while swallowing. ??? You have white areas in the back of your throat. Get help right away if: ??? You have shortness of breath that gets worse. ??? You have severe or persistent: ??? Headache. ??? Ear pain. ??? Sinus pain. ??? Chest pain. ??? You have chronic lung disease along with any of the following: ??? Making high-pitched whistling sounds when you breathe, most often when you breathe out (wheezing). ??? Prolonged cough (more than 14 days). ??? Coughing [...] ??? An upper respiratory infection (URI) is a common infection of the nose, throat, and upper air passages that lead to the lungs. ??? A URI is caused by a virus. ??? URIs usually get better on their own within 7???10 days. ??? Medicines cannot cure URIs, but your health care provider may recommend certain medicines to help relieve symptoms. This information is not intended to replace advice given to you by your health care provider. Make sure you discuss any questions you have with your health care provider. Document Revised: 10/06/2021 Document Reviewed: 10/06/2021 [employer] Patient Education ?? 2022 [employer]. Follow Up Care 12/07/2022 23:24:49 With:Hermes Ramirez MD Address: [address] [place] [address], [address] [place] [address]- When:3 to 5 days Comments:Increase oral fluid intake.?? Continue taking lynk-rwy-sqzwzst medication.?? Tylenol??as needed??but mention to patient not to??take it often due to her liver??transplant.?? Return to ED if symptoms worsen Physician Emergency department Note * Jesus Khan MD: PERFORM Event Display: ED Note Physician Authored Date: [id number] MISHA JACKSON :1980 Age:42 years Sex:Female Visit Date:12/07/2022 Primary Care Physician: Hermes Ramirez MD Basic Information Time Seen: Jesus Khan MD / 12/07/2022 23:39 Chief Complaint Pt arrives to ED with c/o cough and sore throat since Monday, body aches and headache. Was seen in Urgent Care yesterday. -Covid, -Strep. No PH History Of Present Illness: Patient comes in complaining of cough, sore throat??body aches and also headache.?? For couple of days. ??Was seen in [facility] yesterday??they tested her for COVID-19??which was negative. ??Strep??A screen was also negative??and influenza A/B was also negative.?? Diagnosed with upper respiratoryinfection viral.?? Sent home.?? Comes here tonight??stating that??he will have??similar symptoms and headache is more intense.?? Patient history of chronic migraine headaches??and history of liver and??kidney transplant. Review of Systems: Constitutional:?No??fevers,?No??chills,?No??sweats Eye:?No??recent visual problems ENT:?No??ear pain,?No??nasal congestion,?No??sore throat Respiratory:?No??shortness of breath,?Positive for??cough Cardiovascular:?No??Chest pain,?No??palpitations,?No??syncope Gastrointestinal:?Nonausea,?No??vomiting,?No??diarrhea Genitourinary:?No??hematuria Clemente/Lymph:?No??bruising tendency,?No??swollen lymph glands Endocrine:?No??excessive thirst,??No??excessive hunger Musculoskeletal:??No??back pain,??No??neck pain,??No??joint pain,??No??muscle pain,??No??decreased range of motion Integumentary:?No??rash,?No??pruritus,?No??abrasions Neurologic: Alert & oriented X 4 Psychiatric:?No??anxiety,?No??depression Physical Exam Vitals & Measurements T:??36.6?C ??(Oral)?? HR:??93??(Peripheral)?? RR:??18?? BP:??159/99?? SpO2:??100%?? HT:??157.480??cm?? WT:??81.65??kg??(Estimated)?? Pain Score:??7?? O2 Therapy:??Room air?? General: Alert and oriented, well nourished,?No??acute distress Eye: PERRL, EOMI,?Normal?conjunctiva HENT: Normocephalic, clear tympanic membranes,?Normal? hearing, moist oral mucosa,?No??scleral icterus,?No??sinus tenderness;??throat mild hyperemia, no exudate. Neck: Supple, non-tender,?No??carotid bruits,?No??JVD,?No??lymphadenopathy Lungs:??Clear to auscultation?? Respiration:??Non-Labored Heart:?Normal? rate,?Regular??rhythm,?No??murmur,?No??gallop,?No??edema Breast:?No??lumps,?No??bumps,?No??scars,?Normal? nipples Abdomen: Soft, non-tender, non-distended,?Normal? bowel sounds,?No??masses Musculoskeletal:?Normal? range of motion and strength,?No??tenderness,?No??swelling Skin: Skin is warm, dry and pink,?No??rashes,?No??lesions Neurologic: Awake, alert and oriented X4, CN II-XII intact Psychiatric: Cooperative, appropriate mood and affect Medical Decision Making: Phenergan 25 mg IM.?? Benadryl??50 mg IM. ??Morphine sulfate 2 mg IM. Procedure No Qualifying Data Assessment/Plan 1.??Viral upper respiratory infection??J06.9 Orders: Benadryl, 50 mg = 1 mL, IM, Injection, Once, First Dose: 12/08/22 0:00:00 CDT, Stop Date: 12/08/22 0:00:00 CDT, Physician Stop, Routine morphine, 2 mg = 1 mL, IM, Injection, Once, First Dose: 12/08/22 0:00:00 CDT, Stop Date: 12/08/22 0:00:00 CDT, Physician Stop, Routine Phenergan, 25 mg = 1 mL, IM, Injection, Once, First Dose: 12/08/22 0:00:00 CDT, Stop Date: 230:00:00 CDT, Physician Stop, Routine Viral upper respiratory infection.?? Patient was tested??yesterday for COVID-19, influenza A/B,??strep??A they were all negative.?? Instructed to??take cpyu-oiz-jmpfdcj medications. ??Increase oral fluid intake??follow-up with PCP. Patient Discharge Condition Good Discharge Disposition Discharge home Patient Education Viral Respiratory Infection Upper Respiratory Infection, Adult Follow Up With When Contact Information Herems Ramirez MD Within 3 to [address] [place] [address], [address] [place] [address]- Additional Instructions: Increase oral fluid intake.?? Continue taking fflm-twv-qmwvrim medication.?? Tylenol??as needed??but mention to patient not to??take it often due to her liver??transplant.?? Return to ED if symptoms worsen Medication Reconciliation Unchanged amLODIPine (amLODIPine 5 mg [...] Attestation Follow-up with PCP Electronically Signed on 12/07/22 11:55 PM Jesus Khan MD Patient Care team information Care Team Personnel Name: Jessee Jones NP Position: Physician Member Role: Nurse Practitioner Address: Address: [facility], [address] [place] [address]- Name: Latoya Marquez SECTION CHIEF Position: Physician Member Role: Nurse Practitioner Address: Address: [address] [place] [address]- Name: Leonila Gonzalez SECTION CHIEF Position: Physician Member Role: Nurse Practitioner Address: Address: [address] [place] [address]- Name: Beth Brandt SECTION CHIEF Position: Physician Member Role: Nurse Practitioner Address: Address: [address] [place] [address] [place] [address] Name: Hermes Ramirez MD Position: Physician Member Role: Informed Provider Address: Address: [address] [facility], [address] [place] [address]- Name: Pillo Moe SECTION CHIEF Position: Physician Member Role: Nurse Practitioner Address: Address: [address] [place] [address], [address] [facility] Name: Jesus Khan MD Position: Physician Member Role: Admitting Physician Address: Address: [address] [place] [address] [place] [address]- [place] Name: Shea Mayer RN Position: Nurse Member Role: Registered Nurse Care Team Related Persons Name: STACIA JONES Address: Home [address] [place], [place] [id number] Name: ROBYN JAMA
--- OUTSIDE RECORDS SUMMARY | 2024-03-20 11:47 | XMS_ITS | Continuity of Care Document ---
Author Organization [facility] Address [address] [place] [address] Care Team Providers Care Energy Advisor Name Role Phone Hermes Ramirez Primary Care Physician Encounter ONOFRE MCGRAW [id number] Date(s): 04/13/20 - 04/13/20 [place] [address] [place] [address]- Discharge Disposition: Home or Self Care Attending Physician: Jessee Jones NP Admitting Physician: Jessee Jones NP Referring Physician: Jessee Jones SKI PATROL OFFICER Allergies, Adverse Reactions, Alerts Substance Reaction Severity [...] nausea/vomiting, # 20 tab, 0 Refill(s), [id number] Start Date: 04/28/19 Stop Date: 05/03/19 Status: [...] Auto 23.5 % *NA* (04/13/20 5:50 PM) Cooper Auto 8.8 % *NA* (04/13/20 5:50 PM) [...] mg/dL] 8.3 mg/dL *LOW* (04/13/20 5:50 PM) Cooper Absolute [0.1-1.5 x10^3/mcL] 0.4 x1 0^3/mcL (04/13/20 [...]
--- OUTSIDE RECORDS SUMMARY | 2024-03-20 11:47 | XMS_ITS | Continuity of Care Document ---
Author Organization [facility] [place] Address [address] [place] [address]- Care Team Providers Care Surgical Aides Teacher Name Role Phone Hermes Ramirez Primary Care Physician Encounter ONOFRE MCGRAW [id number] Date(s): 07/13/23 - 07/13/23 [facility] [place] [address] [place] [address]- Encounter Diagnosis Chronic back pain(Discharge Diagnosis) - 07/13/23 Other chronic pain(Discharge Diagnosis) - 07/13/23 Discharge Disposition: Home or Self Care Attending [...] from: Title:Office Visit Note Author:Philip Ramirez MD Date:07/13/23 1.??Chronic back pain??M54.9 ??Patient with chronic back pain from??the cervical spine down to the lumbar.?? We discussed options. ??This has been going on for over a year.?? Will start physical therapy.?? Will get MRI of the thoracic and lumbar spine in anticipation of referral to pain clinic for injections which I think might be helpful for her.?? She is tolerant to opioids??and I would not??suggest??further opioid treatment for this problem.?? Continue topical treatments, tylenol, etc.?? Ordered: MRI Spine Lumbar w/o Contrast, 07/13/23, Routine, Reason: chronic low back pain, No, No, Transport Mode: Ambulatory, Chronic back pain MRI Spine Thoracic w/o Contrast, 07/13/23, Routine, Reason: chronic thoracic back pain, No, No, Transport Mode: Ambulatory, Chronic back pain Physical Therapy Outpatient Evaluation and Treatment, 07/13/23, Evaluate, treat and implement plan of care, chronic thoracic and lumbar spine pain, Order for Future Visit, Chronic back pain ?? Other chronic pain??G89.29 ?? Future Appointments Future Scheduled Tests Radiology* MRI Spine Lumbar w/o Contrast 07/13/23 * MRI Spine Thoracic w/o Contrast 07/13/23 * [facility] Mammo Diagnostic Bilateral w/ Chad [...] Daily, # 30 tab, 11 Refill(s), Pharmacy: [place], [place], 157.48, cm, 01/04/23 15:03:00 CDT, Height/Length [...] BID, # 60 cap, 11 Refill(s), Pharmacy: [place], [place], 157.48, cm, 01/04/23 15:03:00 CDT, Height/Length Dosing, 81.65, kg, 01/04/23 15:03:00 CDT, Weight Dosing Start Date: 01/11/23 Status: Ordered pantoprazole 40 mg oral delayed release tablet 1 tab, Oral, Daily, # 90 tab, 0 Refill(s), [facility]acy: [id number], 157.48, cm, 06/07/23 16:07:00 CDT, Height, 89.36, [...] QID, # 360 tab, 0 Refill(s), [id number], cm, 06/07/23 16:07:00 CDT, Height, 89.36, [...] 1 Temperature Tympanic [36.6-38.1 Deg C] 3 7 Deg C (07/13/23 3:36 PM) Peripheral Pulse Rate [60-100 bpm] 86 bp m (07/13/23 3:36 PM) Respiratory Rate [12-24 br/min] 18 br/mi n (07/13/23 3:36 PM) Blood Pressure [90-140/60-90 mmHg] 132/7 2mmHg (07/13/23 3:36 PM) Mean Arterial Pressure, Cuff [65-140 mmH g] 92 mmHg (07/13/23 3:36 PM) Weight 87.54 kg (07/13/23 3:36 PM) Weight Measured (lbs) 192.992 lb (07/13/23 3:36 PM) Weight Dosing 87.540 kg (07/13/23 3:36 PM) Height 157.48 cm (07/13/23 3:36 PM) Height/Length Measured (inches) 62 inch (07/13/23 3:36 PM) BSA Measured 1.96 m2 (07/13/23 3:36 PM) Body Mass Index 35.3 kg/m2 (07/13/23 3:36 PM) Social History Social History Type Response Tobacco Current everyday tob acco user Tobacco Use:. 1 Sex 1Pt states that she smokes half a pack a day. Physician Outpatient Note * Hermes Ramirez MD: PERFORM Event Display: Office Clinic Note Physician Authored Date: [id number] MISHA JACKSON :1980 Age:42 years Sex:Female Visit Date:07/13/2023 Primary Care Physician: Hermes Ramirez MD Chief Complaint Pt here for ED follow up. Pt states she has DDD and has spine and hip pain. History of Present Illness RENETTA MISHA Ever??is a??42 Years??old??Female??presenting today with??Chief Complaint: Pt here for ED follow up. Pt states she has DDD and has spine and hip pain. (07/13/23 15:36:00).?She has had chronic spine pain for over a year.?? She saw Dr. Riojas for her neck last year??and MRI of the cervical spine showed mild to moderate degenerative disc disease.?? She been having more pain in thethoracic and lumbar areas??over the past??several months. ??It has been??worse over the last??few weeks.?? No recent injury. ??She had an x-ray of the lumbar??and thoracic spine??in February??which showed mild degenerative disc disease.?? She has tried pain medications without relief. ??She has notbeen in physical therapy??yet??for the low back pain. Review of Systems Constitutional:?No??fevers Respiratory:?No??shortness of breath Cardiovascular:?No??Chest pain Gastrointestinal:?No??abd pain Physical Exam Vitals & Measurements T:??37?C ??(Tympanic)?? HR:??86??(Peripheral)?? RR:??18?? BP:??132/72?? SpO2:??98%?? HT:??157.48??cm?? WT:??87.54??kg?? BMI:??35.3?? Pain Score:??7?? BSA:??1.96?? MS:??Patient with??mild tenderness on palpation of the low back??without spasm.?? Muscle strength 5out of 5 bilateral lower extremities.?? Straight leg raise negative bilaterally. Neuro:??Reflexes 2+ and symmetric in the patella bilaterally.?Sensation is intact??to light touch bilateral lower extremities. Assessment/Plan 1.??Chronic back pain??M54.9 ??Patient with chronic back pain from??the cervical spine down to the lumbar.?? We discussed options. ??This has been going on for over a year.?? Will start physical therapy.?? Will get MRI of the thoracic and lumbar spine in anticipation of referral to pain clinic for injections which I think might be helpful for her.?? She is tolerant to opioids??and I would not??suggest??further opioid treatment for this problem.?? Continue topical treatments, tylenol, etc.?? Ordered: MRI Spine Lumbar w/o Contrast, 07/13/23, Routine, Reason: chronic low back pain, No, No, Transport Mode: Ambulatory, Chronic back pain MRI Spine Thoracic w/o Contrast, 07/13/23, Routine, Reason: chronic thoracic back pain, No, No, Transport Mode: Ambulatory, Chronic back pain Physical Therapy Outpatient Evaluation and Treatment, 07/13/23, Evaluate, treat and implement plan of care, chronic thoracic and lumbar spine pain, Order for Future Visit, Chronic back pain ?? Other chronic pain??G89.29 ?? Future Orders MRI Spine Lumbar w/o Contrast, 07/13/23, Routine, Reason: chronic low back pain, No, No, Transport Mode: Ambulatory, Chronic back pain MRI Spine Thoracic w/o Contrast, 07/13/23, Routine, Reason: chronic thoracic back pain, No, No, Transport Mode: Ambulatory, Chronic back pain Problem List/Past Medical History Ongoing Acne [...] (Tdap) adult/adol 05/25/2012 Recorded Electronically Signed on 07/13/23 03:59 PM Hermes Ramirez MD Patient Care team information Care Team Personnel Name: Jessee Jones ICER MACHINE Position: Physician Member Role: Nurse Practitioner Address: Address: [address] [place] [address], [address] Name: Latoya Marquez ICER MACHINE Position: Physician Member Role: Nurse Practitioner Address: Address: [address] [place] [address] Name: Leonila Gonzalez ICER MACHINE Position: Physician Member Role: Nurse Practitioner Address: Address: [address] [place] [address] Name: Beth Brandt NP Position: Physician Member Role: Nurse Practitioner Address: Address: [address] [place] [address] Name: Hermes Ramirez MD Position: Physician Member Role: Informed Provider Address: Address: [address] [place] [address], [address] [place], [place] [address] Name: Pillo Moe NP Position: Physician Member Role: Nurse Practitioner Address: Address: [address] [place] [address], [address] [facility] Care Team Related Persons Name: STACIA JONES Address: [place] [address] [id number] Name: MADY CHEN Name: MADY CHEN
--- OUTSIDE RECORDS SUMMARY | 2024-03-20 11:47 | XMS_ITS | Continuity of Care Document ---
Author Organization [facility] Address [address] [place] [address]- Care Team Providers Care Chauffeur [employer]ine Name Role Phone Hermes Ramirez Primary Care Physician Encounter ONOFRE MCGRAW [id number] Date(s): 01/02/23 - 01/02/23 [facility] [place] [address], [place] [address] Discharge Disposition: Home or Self Care Attending Physician: Anamika Gore MD Allergies, Adverse Reactions, Alerts Substance Reaction [...] Daily, # 30 tab, 0 Refill(s), Pharmacy: [place], [place], 157, cm, 12/17/22 0:09:00 CDT, Height/Length [...] BID, # 60 cap, 0 Refill(s), Pharmacy: [place], [place], [address], cm, 12/17/22 0:09:00 CDT, Height/Length [...] Range]: 1 Peripheral Pulse Rate [60-100 bpm] 72 bp m (01/02/23 3:28 PM) Respiratory Rate [12-24 br/min] 18 br/mi n (01/02/23 3:28 PM) Blood Pressure [90-140/60-90 mmHg] 118/6 0mmHg (01/02/23 3:28 PM) Mean Arterial Pressure, Cuff [65-140 mmH g] 79 mmHg (01/02/23 3:28 PM) Weight 91.17 kg (01/02/23 3:28 PM) Weight Measured (lbs) 200.995 lb (01/02/23 3:28 PM) Height 157.48 cm (01/02/23 3:28 PM) Height/Length Measured (inches) 62 inch (01/02/23 3:28 PM) BSA Measured 2 m2 (01/02/23 3:28 PM) Body Mass Index 36.76 kg/m2 (01/02/23 3:28 PM) Social History Social History Type Response Tobacco Current everyday tob acco user Tobacco Use:. Sex Hospital Discharge Instructions Patient Education 01/02/2023 15:43:04 Tobacco Use Disorder Tobacco Use Disorder Tobacco use disorder (TUD) occurs when a person craves, seeks, and uses tobacco, regardless of the consequences. This disorder can cause problems with mental and physical health. It can affect your ability to have healthy relationships. It can also keep you from meeting your responsibilities at work, home, or school. Tobacco products contain a dangerous chemical called nicotine. Nicotine triggers hormones that makethe body feel stimulated and works on areas of the brain that make a person feel good. These effects can make the person depend on nicotine, which makes it hard to quit tobacco. Tobacco may be: ??? Smoked as a cigarette or cigar. ??? Inhaled using vaping devices, such as e-cigarettes. ??? Smoked in a pipe or hookah. ??? Chewed as smokeless tobacco. ??? Inhaled into the nostrils as snuff. What are the causes? This condition is caused by using nicotine. Nicotine causes changes in your brain that make you want more and more. This is called addiction. This can make it hard to stop using tobacco once you start. What are the signs or symptoms? Symptoms of TUD may include: ??? Being unable to stop your tobacco use even after planned quit attempts. ??? Spending an abnormal amount of time getting or using tobacco. ??? Craving tobacco. ??? Tobacco use that: ??? Interferes with your work, school, or home life. ??? Interferes with your personal and social relationships. ??? Makes you give up activities that you once enjoyed or found important. ??? Using tobacco even though you know that it is: ??? Dangerous or bad for your health or someone else's health. ??? Causing problems in your life. ??? Needing more and more of the substance to get the same effect (developing tolerance). ??? Using the substance to avoid unpleasant symptoms if you do not use the substance (withdrawal). How is this diagnosed? This condition may be diagnosed based on: ??? Your current and past tobacco use. Your health care provider may ask questions about how your tobacco use affects your life. ??? A physical exam. You may be diagnosed with TUD if you have at least two symptoms within a 12- month period. How is this treated? This condition is treated by stopping tobacco use. Many people are unable to quit on their own and need help. Treatment may include: ??? Nicotine replacement therapy (NRT). NRT provides nicotine without the other harmful chemicals in tobacco. NRT gradually lowers the dosage of nicotine in the body and reduces withdrawal symptoms. NRT is available as: ??? Lore-qzl-ucnqsvt gums, lozenges, and skin patches. ??? Prescription mouth inhalers and nasal sprays. ??? Medicine that acts on the brain to reduce cravings and withdrawal symptoms. ??? A type of talk therapy that examines your triggers for tobacco use, how to avoid them, and how to cope with cravings (behavioral therapy). ??? Hypnosis. This may help with withdrawal symptoms. ??? Joining a support group for people coping with TUD. The best treatment for TUD is usually a combination of medicine, talk therapy, and support groups. Recovery can be a long process. Many people start using tobacco again after stopping (relapse). If you relapse, it does not mean that treatment will not work. Follow these instructions at home: Lifestyle ??? Do not use any products that contain nicotine or tobacco. These products include cigarettes, chewing tobacco, and vaping devices, such as e-cigarettes. If you need help quitting, ask your health care provider. ??? Avoid things that trigger tobacco use as much as you can. Triggers include people and situations that usually cause you to use tobacco. ??? Avoid drinks that contain caffeine, including coffee. These may worsen some withdrawal symptoms. ??? Find ways to manage stress. Wanting to smoke may cause stress, and stress can make you want to smoke. Relaxation techniques such as deep breathing, meditation, and yoga may help. ??? Attend support groups as needed. These groups are an important part of long- term recovery for many people. General instructions ??? Take mvji-hpz-eiovkrb and prescription medicines only as told by your health care provider. ??? Check with your health care provider before taking any new prescription or dpup-faz-zligodd medicines. ??? Decide on a friend, family member, or smoking quit-line (such as 0-720-FKDI-NOW in the [place] that you can call or text when you feel the urge to smoke or when you need help coping with cravings. ??? Keep all follow-up visits. This is important. Contact a health care provider if: ??? You are not able to take your medicines as told by your health care provider. ??? Your symptoms get worse, even with treatment. Summary ??? Tobacco use disorder (TUD) occurs when a person craves, seeks, and uses tobacco regardless of the consequences. ??? This condition may be diagnosed based on your current and past tobacco use and a physical exam. ??? Many people are unable to quit on their own and need help. Recovery can be a long process. ??? The most effective treatment for TUD is usually a combination of medicine, talk therapy, and support groups. This information is not intended to replace advice given to you by your health care provider. Make sure you discuss any questions you have with your health care provider. Document Revised: 03/01/2022 Document Reviewed: 03/01/2022 [employer] Patient Education ?? 2022 [employer]. Patient Care team information Care Team Personnel Name: Jessee Jones PLANNER INTERN Position: Physician Member Role: Nurse Practitioner Address: Address: [facility], [address] Name: Latoya Marquez PLANNER INTERN Position: Physician Member Role: Nurse Practitioner Address: Address: [address] [place] [address]- Name: Leonila Gonzalez PLANNER INTERN Position: Physician Member Role: Nurse Practitioner Address: Address: [address] [place] [address] Name: Beth Brandt PLANNER INTERN Position: Physician Member Role: Nurse Practitioner Address: Address: [address] [place] [address] Name: Hermes Ramirez MD Position: Physician Member Role: Primary Care Physician Address: Address: [address] [place] [address], [address] [place], [place] [address] Name: Anamika Gore MD Position: Physician - Women's Health Member Role: Informed Provider Name: Pillo Moe NP Position: Physician Member Role: Nurse Practitioner Address: Address: [address] [place] [address], [address] [facility] Care Team Related Persons Name: STACIA JONES Address: Home [address], [place] [id number] Name: ROBYN JAMA
--- OUTSIDE RECORDS SUMMARY | 2024-03-20 11:47 | XMS_ITS | Continuity of Care Document ---
Author Organization [facility] Address [address] [place] [address]- Care Team Providers Care Grain Loader Name Role Phone Hermes Ramirez Primary Care Physician [phone] Encounter ONOFRE MCGRAW [id number] Date(s): 12/30/19 - 12/30/19 [facility] [place] [address] [place] [address]- Encounter Diagnosis Migraine(Discharge Diagnosis) - 12/30/19 Anxiety(Discharge Diagnosis) - 12/30/19 Discharge Disposition: Home or Self Care Attending Physician: Hermes Ramirez MD Allergies, Adverse Reactions, Alerts Substance Reaction Severity Status erythromycin Medication interaction Activ e aspirin Medication interaction Activ e Toradol Kidney failure as a complication of care Active Assessment and Plan Future Appointments Future Scheduled Tests Laboratory* COVID-19 Testing Send Out - [place] 10/25/19 Functional Status 12/30/19 Other exposure to Infectious Disease Non e [...] chew, # 30 cap, 2 Refill(s), Pharmacy: [id number] Start Date: 12/30/19 Status: Ordered Imitrex 6 mg/0.5 mL subcutaneous solution 6 mg = 0.5 mL, Subcutaneous, Daily, PRN as needed for migraine headache, # 2 EA, 0 Refill(s), 01/02/20 15:34:00 CDT, Pharmacy: [id number] Start Date: 12/26/19 Stop Date: 01/02/20 Status: Ordered metoprolol succinate 50 mg oral tablet, extended release 50 mg = 1 tab, Oral, Daily, # 30 tab, 0 Refill(s) Start Date: 12/30/19 Status: Ordered Prograf 2 mg =, Oral, every 12 hr, 0 Refill(s) Start Date: 12/18/18 Status: Ordered promethazine 25 mg oral tablet 25 mg =, Oral, every 6 hr, PRN nausea/vomiting, # 20 tab, 0 Refill(s), Pharmacy: [id number] Start Date: 04/28/19 Stop Date: 05/03/19 Status: Ordered sodium bicarbonate 650 mg oral tablet 1,300 mg = 2 tab, Oral, TID, # 60 tab, 0 Refill(s) Start Date: 12/18/18 Status: Ordered tiZANidine 2 mg oral capsule 2 mg = 1 cap, Oral, every 8 hr, PRN as needed for muscle spasm, # 90 cap, 0 Refill(s), Pharmacy: [facility]/pharmacy #[id number] Start Date: 09/27/19 Stop Date: [...] Oral [35.8-37.3 Deg C] 37.2 Deg C (12/30/19 11:18 AM) Peripheral Pulse Rate [60-100 bpm] 72 bp m (12/30/19 11:18 AM) Respiratory Rate [14-20 br/min] 20 br/mi n (12/30/19 11:18 AM) Blood Pressure [90-140/60-90 mmHg] 126/8 0mmHg (12/30/1918 AM) Weight 78.8 kg (12/30/19 11:18 AM) Weight Measured (lbs) 173 lb (12/30/19 11:18 AM) Height 157.48 cm (12/30/19 11:18 AM) Height/Length Measured (inches) 62 inch (12/30/19:18 AM) BSA Measured 1.86 m2 (12/30/19:18 AM) Body Mass Index Measured 31.77 kg/m2 (12/30/19 11:18 AM) Social History Social History Type Response Smoking Status 4 or less cigarettes (less than 1/4 pack)/day in last 30 days entered on: 07/16/19 Sex
--- OUTSIDE RECORDS SUMMARY | 2024-03-20 11:47 | XMS_ITS | Continuity of Care Document ---
Author Organization [facility] Address [address] [place] [address] Care Team Providers Care Driver Retraining Instructor Name Role Phone Hermes Ramirez Primary Care Physician [phone] Encounter ONOFREEver MCGRAW [id number] Date(s): 08/23/21 - 08/23/[address] [id number] Encounter Diagnosis Intractable migraine(Discharge Diagnosis) - 08/23/21 Discharge Disposition: Home or [...] BID, # 180 tab, 3 Refill(s), Pharmacy: [place], [place], [address], cm, 10/22/20 21:26:00 CDT, Height/Length [...] Oral [35.8-37.3 Deg C] 36.8 Deg C (08/23/21 10:32 PM) Peripheral Pulse Rate [60-100 bpm] 104 b pm *HI* (08/23/21 10:32 PM) Respiratory Rate [12-24 br/min] 16 br/mi n (08/23/21 10:32 PM) Blood Pressure [90-140/60-90 mmHg] 151/9 6mmHg *HI* (08/23/21 10:32 PM) Weight 77.00 kg (08/23/21 10:32 PM) Weight Dosing 77.00 kg (08/23/21 10:37 PM) Height 157.000 cm (08/23/21 10:32 PM) Height/Length Dosing 157.000 cm (08/23/21 10:37 PM) Social History Social History Type Response Smoking Status 5-9 cigarettes (betw een 1/4 to 1/2 pack)/day in last 30 days entered on: 05/12/21 Sex Hospital Discharge Instructions Patient Education 08/23/2021 22:37:05 Migraine Headache, Axfn-fc-Cggc Migraine Headache A migraine headache is a [...] these instructions at home: Medicines ??? Take bmpw-mft-csfidym and prescription medicines only as told by your doctor. ??? Ask your doctor if the medicine prescribed to you: ??? Requires you to avoid driving or using heavy machinery. ??? Can cause trouble pooping (constipation). You may need to take these steps to prevent or treat trouble pooping: ??? Drink enough fluid to keep your pee (urine) pale yellow. ??? Take ednt-hhz-kjhgpch or prescription medicines. ??? Eat foods that [...] provider. Document Revised: 06/28/2019 Document Reviewed: 04/18/2019 [employer] Patient Education ?? 2020 [employer]. Follow Up Care 08/23/2021 22:32:32 With:Follow up with primary care provider Address: When:5 to 7 days Comments:See PCP for referral to neurology for management of??intractable headaches Care Team Personnel Name: Hermes Ramirez MD [facility] [address] [place] [address]-
--- OUTSIDE RECORDS SUMMARY | 2024-03-20 11:47 | XMS_ITS | Continuity of Care Document ---
Author Organization Formerly [facility] Address [address] [place] [address] Care Team Providers Care Rag Sorter Name Role Phone Hermes Ramirez Primary Care Physician [phone] Encounter ONOFRE MCGRAW [id number] Date(s): 03/20/23 - 03/20/[address] [phone] Encounter Diagnosis Influenza due to influenza A virus(Discharge Diagnosis) - 03/20/23 Leukopenia(Discharge Diagnosis) - 03/20/23 Thrombocytopenia(Discharge Diagnosis) - 03/20/23 Hypokalemia(Discharge Diagnosis) - 03/20/23 Transaminitis(Discharge Diagnosis) - 03/20/23 Elevated LFTs(Discharge Diagnosis) - 03/20/23 Elevated alkaline phosphatase level(Discharge Diagnosis) - 03/20/23 History of kidney transplant(Discharge Diagnosis) - 03/20/23 History of liver transplant(Discharge Diagnosis) - 03/20/23 Congenital biliary atresia(Discharge Diagnosis) - 03/20/23 Hypoalbuminemia(Discharge Diagnosis) - 03/20/23 Acute dehydration(Discharge Diagnosis) - 03/20/23 Acute vomiting(Discharge Diagnosis) - 03/20/23 Tobacco abuse(Discharge Diagnosis) - 03/20/23 Tobacco abuse counseling(Discharge Diagnosis) - 03/20/23 Discharge Disposition: Home or Self Care Attending [...] iv site Assessment and Plan Extracted from: Title:Clinical Document Author:Flaquita Angela RN Date:03/20/23 Diagnosis: Acute dehydration Comment: Diagnosis: Acute vomiting Comment: Diagnosis: Congenital biliary atresia Comment: Diagnosis: Cough Comment: Diagnosis: Elevated LFTs Comment: Diagnosis: Elevated alkaline phosphatase level Comment: Diagnosis: History of kidney transplant Comment: Diagnosis: History of liver transplant Comment: Diagnosis: Hypoalbuminemia Comment: Diagnosis: Hypokalemia Comment: Diagnosis: Influenza due to influenza A virus Comment: Diagnosis: Leukopenia Comment: Diagnosis: Thrombocytopenia Comment: Diagnosis: Tobacco abuse Comment: Diagnosis: Tobacco abuse counseling Comment: Diagnosis: Transaminitis Comment: Additional Orders: Comment: Other status: .Urine Volume,Urine, Stat Collect, Collected, 03/20/23 21:02:57 ASIAN STUDIES PROFESSOR, Once, Nurse collect(Complete) Other status: UA Micro,Urine, Stat Collect, Collected, 03/20/23 21:02:57 ASIAN STUDIES PROFESSOR, Once, Nurse collect(Complete) Other status: Auto Diff,Blood, Stat, Collected, 03/20/23 21:01:58 ASIAN STUDIES PROFESSOR, Once, Lab Collect, [id number](Complete) Other status: Benadryl,50 mg = 1 mL, Slow IV Push, Injection, Once, First Dose: 03/21/23 0:00:00 ASIAN STUDIES PROFESSOR, Stop Date: 03/21/23 0:00:00 ASIAN STUDIES PROFESSOR, Physician Stop, Routine(Complete) Other status: CBC w/ Diff,Blood, Stat, 03/20/23 20:40:00 ASIAN STUDIES PROFESSOR, Once, Lab Collect(Complete) Other status: CMP,Blood, Stat, 03/20/23 20:40:00 ASIAN STUDIES PROFESSOR, Once, Lab Collect(Complete) Ordered: Patient Isolation,03/20/23 21:52:26 ASIAN STUDIES PROFESSOR, Influenza, Droplet Other status: Respiratory Panel 2.1 (Bio[employer]),Nasopharyngeal Swab, Stat Collect, 03/20/23 20:40:00 ASIAN STUDIES PROFESSOR, Once, Nurse collect, Print Label(Complete) Other status: Urinalysis with Culture if Indicated,Urine, Stat Collect, 03/20/23 20:43:00 ASIAN STUDIES PROFESSOR, Once, Nurse collect, Print Label(Complete) Other status: potassium chloride,20 mEq = 1 tab, Oral, Tab-ER, Once, First Dose: 03/21/23 0:00:00 ASIAN STUDIES PROFESSOR, Stop Date: 03/21/23 0:00:00 ASIAN STUDIES PROFESSOR, Physician Stop, Routine(Complete) as soon as she had her meds she asked to be discharged as her boyfriend is here also asked about work note which was authorized by dr salazar she states she will followup with her [facility] tomorrow given written instructions and work note 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6 K/mcL *LOW* (03/20/23 9:01 PM) RBC [4.20-5.40 x10^6/mcL] 4.26 x10^6/mcL (03/20/23 9:01 PM) Neutro Auto 51.8 % *NA* (03/20/23 9:01 PM) Lymph Auto 35.8 % *NA* (03/20/23 9:01 PM) Barber Auto 11.2 % *NA* (03/20/23 9:01 PM) Basophil Auto 0.0 % *NA* (03/20/23 9:01 PM) BUN [7-18 mg/dL] 19 mg/dL *HI* (03/20/23 9:01 PM) UA Color Luz Maria *ABN* (03/20/23 9:02 PM) UA WBC [0-5] 0-5 (03/20/23 9:02 PM) Glucose Level [70-110 mg/dL] 108 mg/dL (03/20/23 9:01 PM) Potassium Level [3.5-5.1 mmol/L] 3.1 mmo l/L *LOW* (03/20/23 9:01 PM) Baso Absolute [0.0-0.1 x10^3/mcL] 0.0 x1 0^3/mcL (03/20/23 9:01 PM) MCV [78.0-100.0 fL] 95.5 fL (03/20/23 9:01 PM) UA Urobilinogen [Normal mg/dL] Normal mg /dL (03/20/23 9:02 PM) UA Bili [Negative mg/dL] Negative mg/dL (03/20/23 9:02 PM) UA Ketones [Negative mg/dL] Negative mg/ dL (03/20/23 9:02 PM) AST [15-37 unit/L] 87 unit/L *HI* (03/20/23 9:01 PM) ALT [12-78 unit/L] 95 unit/L *HI* (03/20/23 9:01 PM) MCHC [29.0-37.5 g/dL] 34.6 g/dL (03/20/23 9:01 PM) Sodium Level [136-145 mmol/L] 140 mmol/L (03/20/23 9:01 PM) UA RBC [0-3] 0-3 (03/20/23 9:02 PM) UA Leuk Est [Negative Guille/mcL] Negative Guille/mcL (03/20/23 9:02 PM) Lymph Absolute [0.8-5.8 x10^3/mcL] 1.3 x 10^3/mcL (03/20/23 9:01 PM) UA Nitrite [Negative] Negative (03/20/23 9:02 PM) UA Glucose [Normal mg/dL] Normal mg/dL (03/20/23 9:02 PM) Hct [36.0-48.0 %] 40.7 % (03/20/23 9:01 PM) UA Bacteria [None Seen] Moderate *ABN* (03/20/23 9:02 PM) Calcium Level [8.5-10.1 mg/dL] 9.1 mg/dL (03/20/23 9:01 PM) Barber Absolute [0.1-1.5 x10^3/mcL] 0.4 x1 0^3/mcL (03/20/23 9:01 PM) Albumin Level [3.4-5.0 g/dL] 2.9 g/dL *LOW* (03/20/23 9:01 PM) Protein Total [6.4-8.2 g/dL] 6.5 g/dL (03/20/23 9:01 PM) UA Protein [Negative mg/dL] Trace mg/dL *ABN* (03/20/23 9:02 PM) MCH [27.0-34.0 pg] 33.1 pg (03/20/23 9:01 PM) Neutro Absolute [1.5-8.1 x10^3/mcL] 1.9 x10^3/mcL (03/20/23 9:01 PM) Bilirubin Total [0.0-1.0 mg/dL] 0.8 mg/d L (03/20/23 9:01 PM) Hgb [12.0-16.0 g/dL] 14.1 g/dL (03/20/23 9:01 PM) Alk Phos [46-130 unit/L] 458 unit/L *HI* (03/20/23 9:01 PM) UA Blood [Negative Rocael/mcL] Negative Rocael /mcL (03/20/23 9:02 PM) MPV [6.0-10.0 fL] 11.5 fL *HI* (03/20/23 9:01 PM) UA Mucous [None Seen] None Seen (03/20/23 9:02 PM) UA Spec Grav 1.015 (03/20/23 9:02 PM) Platelets [150-450 K/mcL] 80 K/mcL *LOW* (03/20/23 9:01 PM) CO2 [21-32 mmol/L] 26 mmol/L (03/20/23 9:01 PM) Eos Absolute [0.0-0.5 x10^3/mcL] 0.0 x10 ^3/mcL (03/20/23 9:01 PM) UA Squam Epithelial [None Seen] Few (03/20/23 9:02 PM) UA pH [5.0-9.0] 5.0 (03/20/23 9:02 PM) eGFR Non-AA 41 *NA* (03/20/23 9:01 PM) eGFR AA 50 *NA* (03/20/23 9:01 PM) UA Appear [Clear] Hazy (03/20/23 9:02 PM) Chloride Level [97-107 mmol/L] 106 mmol/ L (03/20/23 9:01 PM) RDW-CV [11.5-15.0 %] 11.5 % (03/20/23 9:01 PM) Adenovirus RespP-BFire [Not Detected] No t Detected (03/20/23 9:02 PM) Bordetella parapertussis RespP-BFire [No t Detected] Not Detected (03/20/23 9:02 PM) Bordetella pertussis RespP-BFire [Not De tected] Not Detected (03/20/23 9:02 PM) Chlamydophila pneumoniae RespP-BFire [No t Detected] Not Detected (03/20/23 9:02 PM) Coronavirus 229E (Not COVID-19) RP-BFire [Not Detected] Not Detected (03/20/23 9:02 PM) Coronavirus HKU1 (Not COVID-19) RP-BFire [Not Detected] Not Detected (03/20/23 9:02 PM) Coronavirus NL63 (Not COVID-19) RP-BFire [Not Detected] Not Detected (03/20/23 9:02 PM) Coronavirus OC43 (Not COVID-19) RP-BFire [Not Detected] Not Detected (03/20/23 9:02 PM) Human Metapneumonovirus RespP-BFire [Not Detected] Not Detected (03/20/23 9:02 PM) Human Rhinovirus/Enterovirus RespP-BFir [Not Detected] Not Detected (03/20/23 9:02 PM) Influenza A (no subtype) RespP-BFire [No t Detected] Detected *ABN* (03/20/23 9:02 PM) Influenza B RespP-BFire [Not Detected] N ot Detected (03/20/23 9:02 PM) Mycomplasma pneumoniae RespP-BFire [Not Detected] Not Detected (03/20/23 9:02 PM) Parainfluenza Virus 1 RespP-BFire [Not D etected] Not Detected (03/20/23 9:02 PM) Parainfluenza Virus 2 RespP-BFire [Not D etected] Not Detected (03/20/23 9:02 PM) Parainfluenza Virus 3 RespP-BFire [Not D etected] Not Detected (03/20/23 9:02 PM) Parainfluenza Virus 4 RespP-BFire [Not D etected] Not Detected (03/20/23 9:02 PM) Respiratory Syncytial Virus RespP-BFire [Not Detected] Not Detected (03/20/23 9:02 PM) Imm Gran Absolute [0.0-0.1 x10^3/mcL] 0. 0 x10^3/mcL (03/20/23 9:01 PM) Imm Gran Auto 0.6 % *NA* (03/20/23 9:01 PM) NRBC Auto 0.0 % *NA* (03/20/23 9:01 PM) NRBC Absolute [0.0-0.0 x10^3/mcL] 0.0 x1 0^3/mcL (03/20/23 9:01 PM) Slide Review Not Indicated (03/20/23 9:01 PM) UA Culture Ind?. Not Indicated (03/20/23 9:02 PM) Urine Srce Clean Catch (03/20/23 9:02 PM) Urine Volume 12 mL (03/20/23 9:02 PM) Creatinine Level [0.60-1.30 mg/dL] 1.49 mg/dL 1 *HI* (03/20/23 9:01 PM) SARS-CoV-2 (COVID-19) RP-BFire [Not Dete cted] Not Detected 2 (03/20/23 9:02 PM) Anion Gap [5-15 mmol/L] 11 mmol/L (03/20/23 9:01 PM) Eos, Auto 0.6 % *NA* (03/20/23 9:01 PM) UA Yeast [None Seen] None Seen (03/20/23 9:02 PM) 1Interpretive Data: Association of GFR and [...] age. 2Interpretive Data: Testing performed using the [employer] Respiratory Panel 2.1 multiplexed PCR nucleic acid test. Radiology Reports * Exam Date Time Procedure Performing Provider Status 03/20/23 9:16 PM XR Chest 1 View Juliette Cole RT(R)(C T) (ARRT); Auth (Verified) Notes: (XR Chest 1 View) Reason For Exam: Cough XR Chest 1 View EXAM DESCRIPTION: XR Chest 1 View REASON FOR STUDY: Cough for 1 week and not getting any better per patient. DURATION: 1 week Comparisons: CT 03/11/23 PREVIOUS SURGERY: Liver and Kidney transplant SMOKING HISTORY: 1/2 ppd for 25 yrs TECHNIQUE: Single radiographic view(s) of the chest. COMPARISON: 06/29/2022. FINDINGS: LUNGS: No focal opacity, pleural effusion, or pneumothorax. HEART/MEDIASTINUM: Cardiac silhouette normal in size. Mediastinal and hilar contours appear normal. LINES/TUBES: None. BONES: No acute osseous abnormality. IMPRESSION: No acute cardiopulmonary abnormality. THIS IS AN ELECTRONICALLY VERIFIED FINAL REPORT 03/20/2023 9:50 PM - Electronically signed by Radu Nolasco M.D., D.O. Radu Nolasco M.D., D.O. MW: [id number] Report ID: [id number] Reading Location: [place] [id number] Final Dictated by: Radu Nolasco MD Dictated DT/TM: 03/20/2023 9:52 pm Signed by: Radu Nolasco MD DO Signed (Electronic Signature): 03/20/2023 9:52 pm Vital Signs Most recent to oldest [Reference Range]: 1 2 3 Temperature Oral [35.8-37.3 Deg C] 37.2 Deg C (03/20/23 8:10 PM) Peripheral Pulse Rate [60-100 bpm] 82 bpm (03/20/23 11:15 PM) 80 bpm (03/20/23 8:10 PM) Heart Rate Monitored [60-100 bpm] 85 bpm (03/20/23 9:08 PM) 81 bpm (03/20/23 8:58 PM) Respiratory Rate [12-24 br/min] 18 br/min (03/20/23 11:15 PM) 18 br/min (03/20/23 9:08 PM) 18 br/min (03/20/23 8:58 PM) Blood Pressure [90-140/60-90 mmHg] 144/88mmHg *HI* (03/20/23 11:15 PM) 146/94mmHg *HI* (03/20/23 8:10 PM) Mean Arterial Pressure, Cuff [70-110 mmHg] 111 mmHg *HI* (03/20/23 8:10 PM) Weight Estimated 81.65 kg (03/20/23 8:10 PM) Body Mass Index Estimated 32.92 kg/m2 (03/20/23 8:10 PM) Height/Length Estimated 157.48 cm (03/20/23 8:10 PM) Social History Social History Type Response Tobacco Current everyday tob acco user Tobacco Use:. 1 Sex 1Pt states that she smokes half a pack a day. Hospital Discharge Instructions Patient Education 03/20/2023 23:05:35 Dehydration, Adult, Rbqr-iv-Mcre Dehydration, Adult Dehydration is condition in which there is not enough water or other fluids in the body. This happens when a person loses more fluids than he or she takes in. Important body parts cannot work right without the right amount of fluids. Any loss of fluids from the body can cause dehydration. Dehydration can be mild, worse, or very bad. It should be treated right away to keep it from getting very bad. What are the causes? This condition may be caused by: ??? Conditions that cause loss of water or other fluids, such as: ??? Watery poop (diarrhea). ??? Vomiting. ??? Sweating a lot. ??? Peeing (urinating) a lot. ??? Not drinking enough fluids, especially when you: ??? Are ill. ??? Are doing things that take a lot of energy to do. ??? Other illnesses and conditions, such as fever or infection. ??? Certain medicines, such as medicines that take extra fluid out of the body (diuretics). ??? Lack of safe drinking water. ??? Not being able to get enough water and food. What increases the risk? The following factors may make you more likely to develop this condition: ??? Having a long-term (chronic) illness that has not been treated the right way, such as: ??? Diabetes. ??? Heart disease. ??? Kidney disease. ??? Being 65 years of age or older. ??? Having a disability. ??? Living in a place that is high above the ground or sea (high in altitude). The thinner, dried air causes more fluid loss. ??? Doing exercises that put stress on your body for a long time. What are the signs or symptoms? Symptoms of dehydration depend on how bad it is. Mild or worse dehydration ??? Thirst. ??? Dry lips or dry mouth. ??? Feeling dizzy or light-headed, especially when you stand up from sitting. ??? Muscle cramps. ??? Your body making: ??? Dark pee (urine). Pee may be the color of tea. ??? Less pee than normal. ??? Less tears than normal. ??? Headache. Very bad dehydration ??? Changes in skin. Skin may: ??? Be cold to the touch (clammy). ??? Be blotchy or pale. ??? Not go back to normal right after you lightly pinch it and let it go. ??? Little or no tears, pee, or sweat. ??? Changes in vital signs, such as: ??? Fast breathing. ??? Low blood pressure. ??? Weak pulse. ??? Pulse that is more than 100 beats a minute when you are sitting still. ??? Other changes, such as: ??? Feeling very thirsty. ??? Eyes that look hollow (sunken). ??? Cold hands and feet. ??? Being mixed up (confused). ??? Being very tired (lethargic) or having trouble waking from sleep. ??? Short-term weight loss. ??? Loss of consciousness. How is this treated? Treatment for this condition depends on how bad it is. Treatment should start right away. Do not wait until your condition gets very bad. Very bad dehydration is an emergency. You will need to go to a hospital. ??? Mild or worse dehydration can be treated at home. You may be asked to: ??? Drink more fluids. ??? Drink an oral rehydration solution (ORS). This drink helps get the right amounts of fluids and salts and minerals in the blood (electrolytes). ??? Very bad dehydration can be treated: ??? With fluids through an IV tube. ??? By getting normal levels of salts and minerals in your blood. This is often done by giving salts and minerals through a tube. The tube is passed through your nose and into your stomach. ??? By treating the root cause. Follow these instructions at home: Oral rehydration solution If told by your doctor, drink an ORS: ??? Make an ORS. Use instructions on the package. ??? Start by drinking small amounts, about ?? cup (120 mL) every 5???10 minutes. ??? Slowly drink more until you have had the amount that your doctor said to have. Eating and drinking ??? Drink enough clear fluid to keep your pee pale yellow. If you were told to drink an ORS, finishthe ORS first. Then, start slowly drinking other clear fluids. Drink fluids such as: ??? Water. Do not drink only water. Doing that can make the salt (sodium) level in your body get too low. ??? Water from ice chips you suck on. ??? Fruit juice that you have added water to (diluted). ??? Low-calorie sports drinks. ??? Eat foods that have the right amounts of salts and minerals, such as: ??? Bananas. ??? Oranges. ??? Potatoes. ??? Tomatoes. ??? Spinach. ??? Do not drink alcohol. ??? Avoid: ??? Drinks that have a lot of sugar. These include: ??? High-calorie sports drinks. ??? Fruit juice that you did not add water to. ??? Soda. ??? Caffeine. ??? Foods that are greasy or have a lot of fat or sugar. General instructions ??? Take hlqr-xfz-ntnoiub and prescription medicines only as told by your doctor. ??? Do not take salt tablets. Doing that can make the salt level in your body get too high. ??? Return to your normal activities as told by your doctor. Ask your doctor what activities are safe for you. ??? Keep all follow-up visits as told by your doctor. This is important. Contact a doctor if: ??? You have pain in your belly (abdomen) and the pain: ??? Gets worse. ??? Stays in one place. ??? You have a rash. ??? You have a stiff neck. ??? You get angry or annoyed (irritable) more easily than normal. ??? You are more tired or have a harder time waking than normal. ??? You feel: ??? Weak or dizzy. ??? Very thirsty. Get help right away if you have: ??? Any symptoms of very bad dehydration. ??? Symptoms of vomiting, such as: ??? You cannot eat or drink without vomiting. ??? Your vomiting gets worse or does not go away. ??? Your vomit has blood or green stuff in it. ??? Symptoms that get worse with treatment. ??? A fever. ??? A very bad headache. ??? Problems with peeing or pooping (having a bowel movement), such as: ??? Watery poop that gets worse or does not go away. ??? Blood in your poop (stool). This may cause poop to look black and tarry. ??? Not peeing in 6???8 hours. ??? Peeing only a small amount of very dark pee in 6???8 hours. ??? Trouble breathing. These symptoms may be an emergency. Do not wait to see if the symptoms will go away. Get medical help right away. Call your local emergency services (911 in the [place] Do not drive yourself to the hospital. Summary ??? Dehydration is a condition in which there is not enough water or other fluids in the body. Thishappens when a person loses more fluids than he or she takes in. ??? Treatment for this condition depends on how bad it is. Treatment should be started right away. Do not wait until your condition gets very bad. ??? Drink enough clear fluid to keep your pee pale yellow. If you were told to drink an oral rehydration solution (ORS), finish the ORS first. Then, start slowly drinking other clear fluids. ??? Take nvrc-xsd-rnuvakr and prescription medicines only as told by your doctor. ??? Get help right away if you have any symptoms of very bad dehydration. This information is not intended to replace advice given to you by your health care provider. Make sure you discuss any questions you have with your health care provider. Document Revised: 10/17/2019 Document Reviewed: 10/17/2019 [employer] Patient Education ?? 2022 [employer]. 03/20/2023 23:05:34 Influenza, Adult, Fsai-un-Uwcn Influenza, Adult Influenza is also called the flu. It is an infection in the lungs, nose, and throat (respiratory tract). It spreads easily from person to person (is contagious). The flu causes symptoms that are like a cold, along with high fever and body aches. What are the causes? This condition is caused by the influenza virus. You can get the virus by: ??? Breathing in droplets that are in the air after a person infected with the flu coughed or sneezed. ??? Touching something that has the virus on it and then touching your mouth, nose, or eyes. What increases the risk? Certain things may make you more likely to get the flu. These include: ??? Not washing your hands often. ??? Having close contact with many people during cold and flu season. ??? Touching your mouth, eyes, or nose without first washing your hands. ??? Not getting a flu shot every year. You may have a higher risk for the flu, and serious problems, such as a lung infection (pneumonia),if you: ??? Are older than 65. ??? Are . ??? Have a weakened disease-fighting system (immune system) because of a disease or because you aretaking certain medicines. ??? Have a long-term (chronic) condition, such as: ??? Heart, kidney, or lung disease. ??? Diabetes. ??? Asthma. ??? Have a liver disorder. ??? Are very overweight (morbidly obese). ??? Have anemia. What are the signs or symptoms? Symptoms usually begin suddenly and last 4???14 days. They may include: ??? Fever and chills. ??? Headaches, body aches, or muscle aches. ??? Sore throat. ??? Cough. ??? Runny or stuffy (congested) nose. ??? Feeling discomfort in your chest. ??? Not wanting to eat as much as normal. ??? Feeling weak or tired. ??? Feeling dizzy. ??? Feeling sick to your stomach or throwing up. How is this treated? If the flu is found early, you can be treated with antiviral medicine. This can help to reduce how bad the illness is and how long it lasts. This may be given by mouth or through an IV tube. Taking care of yourself at home can help your symptoms get better. Your doctor may want you to: ??? Take ltlz-zkh-bhnwofm medicines. ??? Drink plenty of fluids. The flu often goes away on its own. If you have very bad symptoms or other problems, you may be treated in a hospital. Follow these instructions at home: Activity ??? Rest as needed. Get plenty of sleep. ??? Stay home from work or school as told by your doctor. ??? Do not leave home until you do not have a fever for 24 hours without taking medicine. ??? Leave home only to go to your doctor. Eating and drinking ??? Take an ORS (oral rehydration solution). This is a drink that is sold at pharmacies and stores. ??? Drink enough fluid to keep your pee pale yellow. ??? Drink clear fluids in small amounts as you are able. Clear fluids include: ??? Water. ??? Ice chips. ??? Fruit juice mixed with water. ??? Low-calorie sports drinks. ??? Eat bland foods that are easy to digest. Eat small amounts as you are able. These foods include: ??? Bananas. ??? Applesauce. ??? Rice. ??? Lean meats. ??? [place]. ??? Crackers. ??? Do not eat or drink: ??? Fluids that have a lot of sugar or caffeine. ??? Alcohol. ??? Spicy or fatty foods. General instructions ??? Take euji-mrf-alemubw and prescription medicines only as told by your doctor. ??? Use a cool mist humidifier to add moisture to the air in your home. This can make it easier foryou to breathe. ??? When using a cool mist humidifier, clean it daily. Empty water and replace with clean water. ??? Cover your mouth and nose when you cough or sneeze. ??? Wash your hands with soap and water often and for at least 20 seconds. This is also important after you cough or sneeze. If you cannot use soap and water, use alcohol-based hand tie worker. ??? Keep all follow-up visits. How is this prevented? Get a flu shot every year. You may get the flu shot in late summer, fall, or winter. Ask your doctor when you should get your flu shot. ??? Avoid contact with people who are sick during fall and winter. This is cold and flu season. Contact a doctor if: ??? You get new symptoms. ??? You have: ??? Chest pain. ??? Watery poop (diarrhea). ??? A fever. ??? Your cough gets worse. ??? You start to have more mucus. ??? You feel sick to your stomach. ??? You throw up. Get help right away if you: ??? Have shortness of breath. ??? Have trouble breathing. ??? Have skin or nails that turn a bluish color. ??? Have very bad pain or stiffness in your neck. ??? Get a sudden headache. ??? Get sudden pain in your face or ear. ??? Cannot eat or drink without throwing up. These symptoms may represent a serious problem that is an emergency. Get medical help right away. Call your local emergency services (911 in the [place] ??? Do not wait to see if the symptoms will go away. ??? Do not drive yourself to the hospital. Summary ??? Influenza is also called the flu. It is an infection in the lungs, nose, and throat. It spreads easily from person to person. ??? Take soun-zex-spithrm and prescription medicines only as told by your doctor. ??? Getting a flu shot every year is the best way to not get the flu. This information is not intended to replace advice given to you by your health care provider. Make sure you discuss any questions you have with your health care provider. Document Revised: 10/23/2020 Document Reviewed: 10/23/2020 [employer] Patient Education ?? 2022 [employer]. Follow Up Care 03/20/2023 20:10:26 With:1. Ensure adequate oral hydration 2. Follow-up with your primary MD in 1 to 2 days 3. Continue current medications as prescribed 4. Do not smoke 5. Return if not improving Address:Unknown When:1 month Physician Emergency department Note * Percy Salazar MD: PERFORM, MODIFY, MODIFY Event Display: ED Note Physician Authored Date: MISHA JACKSON :1980 Age:42 years Sex:Female Visit Date:03/20/2023 Primary Care Physician: Hermes Ramirez MD Basic Information Time Seen: Maryam Cortés MD / 03/20/2023 20:28 Chief Complaint everything hurts cough fever and not peeing like she should ??diagnosed with flu a a week ago ??started to get a little better but now worse did not her back from her md in [place] so did not take tamiflu History Of Present Illness: Patient care transferred to ks??at 9 PM at shift change from Dr. Cortés.?? Patient was awaiting lab results. The patient is a 42-year-old white female who presented to the emergency room by POV from home witha complaint of??recent??influenza A diagnosis??5 days prior to this presentation??and not feeling well??persistent nausea.?? 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 The patient is on??chronic immunosuppression. Review of Systems: General: Alert and oriented, well nourished, no acute distress. Eye: PERRL, EOMI, normal conjunctiva. HENT: Normocephalic, clear tympanic membranes, normal hearing, moist oral mucosa, no scleral icterus, no sinus tenderness. Neck: Supple, non-tender, no carotid bruits, no JVD, no lymphadenopathy. Lungs: Clear to auscultation and percussion, non-labored respiration. Heart: Normal rate, regular rhythm, no murmur, gallop or edema. Breast: No lumps, no bumps, no scars, normal nipples. Abdomen: Soft, non-tender, non-distended, normal bowel sounds, no masses. Musculoskeletal: Normal range of motion and strength, no tenderness or swelling. Skin: Skin is warm, dry and appropriate for ethnicity, no rashes or lesions. Neurologic: Awake, alert and oriented X4, CN II-XII intact. Psychiatric: Cooperative, appropriate mood and affect. Physical Exam Vitals & Measurements T:??37.2?C ??(Oral)?? HR:??85??(Monitored)?? RR:??18?? BP:??146/94?? SpO2:??100%?? HT:??157.48??cm?? WT:??81.65??kg??(Estimated)?? BMI:??32.92?? O2 Therapy:??Room air?? General: Alert and oriented, [...] appropriate mood and affect Medical Decision Making: Lab work was ordered by Dr. Cortés including CBC CMP UA.?? CBC was remarkable for??leukopenia with a total white count 3.6??and thrombocytopenia??with platelets of 80??hypokalemia??potassium 3.1??and elevation of LFTs??and alkaline phosphatase??and hypoalbuminemia.?? The patient asked for?? pain meds ??and was asking for morphine or Dilaudid by name.?? She states that she has pain all over ??and explained to the patient that??I will give her??opiate pain control??this time as an exception but will not be able to provide that in the future??unless diagnosis warrants.?? She was given morphine 2 mg??IV and??Benadryl 50 mg??IV.?? She reported improvement in her symptoms and??was discharged home in stable condition. ??Patient refused to??wait??to ensure no??reaction to the medication.?? He understood all risks including permanent disability or . Procedure No Qualifying Data Assessment/Plan Congenital biliary atresia??Q44.2 Elevated alkaline phosphatase level??R74.8 Elevated LFTs??R79.89 History of kidney transplant??Z94.0 History of liver transplant??Z94.4 Hypoalbuminemia??E88.09 Hypokalemia??E87.6 Influenza due to influenza A virus??J10.1 Leukopenia??D72.819 Thrombocytopenia??D69.6 Transaminitis??R74.01 Patient Discharge Condition Stable Discharge Disposition Discharged home in stable condition??with boyfriend available to drive. Medication Reconciliation Unchanged amLODIPine (amLODIPine 5 mg [...] Liver transplantation (05/08/2020)???Mammogram (2020)??? delivery???cyst removal from [facility]???[facility]???liver transplant Medication Administration Given ipratropium-albuterol 0.5 mg-2.5 mg/3 mL inhalation solution, 3 mL, Nebulized Inhalation NS bolus, 1000 mL, Medication Bolus Vistaril, 50 mg, Intramuscular Allergies NSAIDs Toradol??(Kidney failure [...] and Differential?? LATEST RESULTS?? HISTORICAL RESULTS?? WBC?? 03/20/23 21:01?? 3.6 ??Low?? 03/05/23?? 7.1?? RBC?? 03/20/23 21:01?? 4.26?? 03/05/23?? 4.44?? Hgb?? 03/20/23 21:01?? 14.1?? 03/05/23?? 14.7?? Hct?? 03/20/23 21:01?? 40.7?? 03/05/23?? 43.6?? MCV?? 03/20/23 21:01?? 95.5?? 03/05/23?? 98.2?? MCH?? 03/20/23 21:01?? 33.1?? 03/05/23?? 33.1?? MCHC?? 03/20/23 21:01?? 34.6?? 03/05/23?? 33.7?? RDW-CV?? 03/20/23 21:01?? 11.5?? 03/05/23?? 11.9?? Platelets?? 03/20/23 21:01?? 80 ??Low?? 03/05/23?? 132 ??Low?? MPV?? 03/20/23 21:01?? 11.5 ??High?? 03/05/23?? 11.1 ??High?? Neutro Auto?? 03/20/23 21:01?? 51.8?? 03/05/23?? 72.6?? Lymph Auto?? 03/20/23 21:01?? 35.8?? 03/05/23?? 16.7?? Barber Auto?? 03/20/23 21:01?? 11.2?? 03/05/23?? 7.8?? Eos, Auto?? 03/20/23 21:01?? 0.6?? 03/05/23?? 2.3?? Basophil Auto?? 03/20/23 21:01?? 0.0?? 03/05/23?? 0.3?? Imm Gran Auto?? 03/20/23 21:01?? 0.6?? 03/05/23?? 0.3?? NRBC Auto?? 03/20/23 21:01?? 0.0?? 03/05/23?? 0.0?? Neutro Absolute?? 03/20/23 21:01?? 1.9?? 03/05/23?? 5.1?? Lymph Absolute?? 03/20/23 21:01?? 1.3?? 03/05/23?? 1.2?? Barber Absolute?? 03/20/23 21:01?? 0.4?? 03/05/23?? 0.6?? Eos Absolute?? 03/20/23 21:01?? 0.0?? 03/05/23?? 0.2?? Baso Absolute?? 03/20/23 21:01?? 0.0?? 03/05/23?? 0.0?? Imm Gran Absolute?? 03/20/23 21:01?? 0.0?? 03/05/23?? 0.0?? NRBC Absolute?? 03/20/23 21:01?? 0.0?? 03/05/23?? 0.0?? Slide Review?? 03/20/23 21:01?? Not Indicated?? 03/05/23?? Not Indicated? Routine Chemistry?? LATEST RESULTS?? HISTORICAL RESULTS?? Sodium Level?? 03/20/23 21:01?? 140?? 03/05/23?? 144?? Potassium Level?? 03/20/23 21:01?? 3.1 ??Low?? 03/05/23?? 3.7?? Chloride Level?? 03/20/23 21:01?? 106?? 03/05/23?? 108 ??High?? CO2?? 03/20/23 21:01?? 26?? 03/05/23?? 22?? Alk Phos?? 03/20/23 21:01?? 458 ??High?? 03/05/23?? 247 ??High?? AST?? 03/20/23 21:01?? 87 ??High?? 03/05/23?? 22?? ALT?? 03/20/23 21:01?? 95 ??High?? 03/05/23?? 30?? BUN?? 03/20/23 21:01?? 19 ??High?? 03/05/23?? 27 ??High?? Glucose Level?? 03/20/23 21:01?? 108?? 03/05/23?? 95?? Creatinine Level?? 03/20/23 21:01?? 1.49 ??High?? 03/05/23?? 1.67 ??High?? eGFR AA?? 03/20/23 21:01?? 50?? 03/05/23?? 44?? eGFR Non-AA?? 03/20/23 21:01?? 41?? 03/05/23?? 36?? Calcium Level?? 03/20/23 21:01?? 9.1?? 03/05/23?? 9.2?? Protein Total?? 03/20/23 21:01?? 6.5?? 03/05/23?? 7.6?? Albumin Level?? 03/20/23 21:01?? 2.9 ??Low?? 03/05/23?? 3.6?? Bilirubin Total?? 03/20/23 21:01?? 0.8?? 03/05/23?? 0.8?? Anion Gap?? 03/20/23 21:01?? 11?? 03/05/23?? 18 ??High? UA Macroscopic?? LATEST RESULTS?? HISTORICAL RESULTS?? Urine Srce?? 03/20/23 21:02?? Clean Catch?? 03/14/23?? Urine?? Urine Volume?? 03/20/23 21:02?? 12?? 03/14/23?? 12?? UA Color?? 03/20/23 21:02?? Luz Maria Abnormal?? 03/14/23?? Yellow?? UA Appear?? 03/20/23 21:02?? Hazy?? 03/14/23?? Hazy?? UA Glucose?? 03/20/23 21:02?? Normal?? 03/14/23?? Normal?? UA Bili?? 03/20/23 21:02?? Negative?? 03/14/23?? Negative?? UA Ketones?? 03/20/23 21:02?? Negative?? 03/14/23?? Negative?? UA Spec Grav?? 03/20/23 21:02?? 1.015?? 03/14/23?? 1.020?? UA Blood?? 03/20/23 21:02?? Negative?? 03/14/23?? Negative?? UA pH?? 03/20/23 21:02?? 5.0?? 03/14/23?? 5.0?? UA Protein?? 03/20/23 21:02?? Trace Abnormal?? 03/14/23?? Negative?? UA Urobilinogen?? 03/20/23 21:02?? Normal?? 03/14/23?? Normal?? UA Nitrite?? 03/20/23 21:02?? Negative?? 03/14/23?? Negative?? UA Leuk Est?? 03/20/23 21:02?? Negative?? 03/14/23?? Negative?? UA Culture Ind?.?? 03/20/23 21:02?? Not Indicated?? 03/14/23?? Not Indicated? UA Microscopic?? LATEST RESULTS?? HISTORICAL RESULTS?? UA WBC?? 03/20/23 21:02?? 0-5?? 03/14/23?? 0-5?? UA RBC?? 03/20/23 21:02?? 0-3?? 03/14/23?? 0-3?? UA Squam Epithelial?? 03/20/23 21:02?? Few?? 03/14/23?? Many Abnormal?? UA Yeast?? 03/20/23 21:02?? None Seen?? 03/14/23?? None Seen?? UA Mucous?? 03/20/23 21:02?? None Seen?? 03/14/23?? None Seen?? UA Bacteria?? 03/20/23 21:02?? Moderate Abnormal?? 03/14/23?? Occasional Abnormal? Electronically Signed on 03/21/23 01:04 AM Martin, Emad M MD Discharge summary * Flaquita Angela RN: PERFORM Event Display: Discharge Note Authored Date: Diagnosis: Acute dehydration Comment: Diagnosis: Acute vomiting Comment: Diagnosis: Congenital biliary atresia Comment: Diagnosis: Cough Comment: Diagnosis: Elevated LFTs Comment: Diagnosis: Elevated alkaline phosphatase level Comment: Diagnosis: History of kidney transplant Comment: Diagnosis: History of liver transplant Comment: Diagnosis: Hypoalbuminemia Comment: Diagnosis: Hypokalemia Comment: Diagnosis: Influenza due to influenza A virus Comment: Diagnosis: Leukopenia Comment: Diagnosis: Thrombocytopenia Comment: Diagnosis: Tobacco abuse Comment: Diagnosis: Tobacco abuse counseling Comment: Diagnosis: Transaminitis Comment: Additional Orders: Comment: Other status: .Urine Volume,Urine, Stat Collect, Collected, 03/20/23 21:02:57 ASIAN STUDIES PROFESSOR, Once, Nurse collect(Complete) Other status: UA Micro,Urine, Stat Collect, Collected, 03/20/23 21:02:57 ASIAN STUDIES PROFESSOR, Once, Nurse collect(Complete) Other status: Auto Diff,Blood, Stat, Collected, 03/20/23 21:01:58 ASIAN STUDIES PROFESSOR, Once, Lab Collect, [id number](Complete) Other status: Benadryl,50 mg = 1 mL, Slow IV Push, Injection, Once, First Dose: 03/21/23 0:00:00 ASIAN STUDIES PROFESSOR, Stop Date: 03/21/23 0:00:00 ASIAN STUDIES PROFESSOR, Physician Stop, Routine(Complete) Other status: CBC w/ Diff,Blood, Stat, 03/20/23 20:40:00 ASIAN STUDIES PROFESSOR, Once, Lab Collect(Complete) Other status: CMP,Blood, Stat, 03/20/23 20:40:00 ASIAN STUDIES PROFESSOR, Once, Lab Collect(Complete) Ordered: Patient Isolation,03/20/23 21:52:26 ASIAN STUDIES PROFESSOR, Influenza, Droplet Other status: Respiratory Panel 2.1 ([employer]),Nasopharyngeal Swab, Stat Collect, 03/20/23 20:40:00 ASIAN STUDIES PROFESSOR, Once, Nurse collect, Print Label(Complete) Other status: Urinalysis with Culture if Indicated,Urine, Stat Collect, 03/20/23 20:43:00 ASIAN STUDIES PROFESSOR, Once, Nurse collect, Print Label(Complete) Other status: potassium chloride,20 mEq = 1 tab, Oral, Tab-ER, Once, First Dose: 03/21/23 0:00:00 ASIAN STUDIES PROFESSOR, Stop Date: 03/21/23 0:00:00 ASIAN STUDIES PROFESSOR, Physician Stop, Routine(Complete) as soon as she had her meds she asked to be discharged as her boyfriend is here also asked about work note which was authorized by dr salazar she states she will followup with her [place] [facility] tomorrow given written instructions and work note she left with her boyfriend 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 ambulatory Electronically Signed on 03/20/23 11:50 PM Flaquita Angela RN Patient Care team information Care Team Personnel Name: Jessee Jones SPONGE DIVER Position: Physician Member Role: Nurse Practitioner Address: Address: [address] [place] [address], [address] [place] [address]- Name: Latoya Marquez SPONGE DIVER Position: Physician Member Role: Nurse Practitioner Address: Address: [address] [place] [address]- Name: Leonila Gonzalez SPONGE DIVER Position: Physician Member Role: Nurse Practitioner Address: Address: [address] [place] [address]- Name: Beth Brandt SPONGE DIVER Position: Physician Member Role: Nurse Practitioner Address: Address: [address] [place] [address] Name: Hermes Ramirez MD Position: Physician Member Role: Primary Care Physician Address: Address: [address] [place] [address], [address] [place] [address]- Name: Anamika Gore MD Position: Physician - Women's Health Member Role: Informed Provider Name: Pillo Moe SPONGE DIVER Position: Physician Member Role: Nurse Practitioner Address: Address: [address] [place] [address], [address] [facility] Name: Maryam Cortés MD Position: Physician Member Role: Admitting Physician Address: Address: [address] [place] [address] [place] [address]- Name: Flaquita Angela RN Position: Nurse Member Role: ED Nurse Care Team Related Persons Name: STACIA JONES Address: Home [address] [place] [phone] Name: ROBYN JAMA
--- OUTSIDE RECORDS SUMMARY | 2024-03-20 11:47 | XMS_ITS | Continuity of Care Document ---
Author Organization [facility] Address [address] [place] [address] Care Team Providers Care Operating Theatre Technician Name Role Phone Hermes Ramirez Primary Care Physician Encounter ONOFRE MCGRAW [id number] Date(s): 10/18/21 - 10/18/[address] [address] [place] Encounter Diagnosis Migraine headache(Discharge Diagnosis) - 10/18/21 Laceration of finger without damage to nail(Discharge Diagnosis) - 10/18/21 Discharge Disposition: Home or Self Care Attending [...] 0 Refill(s), Pharmacy: [facility] - [place], [place], [address], cm, 09/13/21 23:53:00 CDT, Height/Length [...] cough, # 120 mL, 0 Refill(s), Pharmacy: [place], [place], [address], cm, 09/13/21 23:53:00 CDT, Height/Length [...] BID, # 180 tab, 3 Refill(s), Pharmacy: [place], [place], [address], cm, 10/22/20 21:26:00 CDT, Height/Length [...] nausea/vomiting, # 20 tab, 0 Refill(s), Pharmacy: [place], [place], [address], cm, 09/29/21 23:03:00 CDT, Height/Length [...] Oral [35.8-37.3 Deg C] 36.8 Deg C (10/18/21 9:00 PM) Peripheral Pulse Rate [60-100 bpm] 109 b pm *HI* (10/18/21 9:00 PM) Respiratory Rate [12-24 br/min] 16 br/mi n (10/18/21 9:00 PM) Blood Pressure [90-140/60-90 mmHg] 139/9 2mmHg (10/18/21 9:00 PM) Weight 75.00 kg (10/18/21 9:00 PM) Weight Dosing 75.00 kg (10/18/21 9:24 PM) Height 157.000 cm (10/18/21 9:00 PM) Height/Length Dosing 157.000 cm (10/18/21 9:24 PM) Social History Social History Type Response Smoking Status 5-9 cigarettes (betw een 1/4 to 1/2 pack)/day in last 30 days entered on: 05/12/21 Sex Hospital Discharge Instructions Patient Education 10/18/2021 21:57:31 Migraine Headache Migraine Headache A migraine headache [...] these instructions at home: Medicines ??? Take rmnl-cbo-dtdqjxo and prescription medicines only as told by your health care provider. ??? Ask your health care provider if the medicine prescribed to you: ??? Requires you to avoid driving or using heavy machinery. ??? Can cause constipation. You may need to take these actions to prevent or treat constipation: ??? Drink enough fluid to keep your urine pale yellow. ??? Take oqal-fln-jiangnl or prescription medicines. ??? Eat foods that [...] provider. Document Revised: 06/28/2019 Document Reviewed: 04/18/2019 [employer] Patient Education ?? 2020 [employer] 10/18/2021 21:57:22 Sutured Wound Care, Ruuu-vw-Rthk Sutured Wound Care Sutures are stitches that can be used to close wounds. Taking care of your wound properly can help prevent pain and infection. It can also help your wound to heal more quickly. Follow instructions from your doctor about how to care for your sutured wound. Supplies needed: ??? Soap and water. ??? A clean bandage (dressing), if needed. ??? Antibiotic ointment. ??? A clean towel. How to care for your sutured wound ??? Keep the wound completely dry for the first 24 hours or as long as told by your doctor. After 24???48 hours, you may shower or bathe as told by your doctor. Do not soak the wound or put the woundcompletely under water until the sutures have been removed. ??? After the first 24 hours, clean the wound once a day, or as often as your doctor tells you to. Take these steps: ??? Wash the wound with soap and water. ??? Rinse the wound with water. Make sure to wash all the soap off. ??? Pat the wound dry with a clean towel. Do not rub the wound. ??? After cleaning the wound, put a thin layer of antibiotic ointment on the wound as told by your doctor. This will help: ??? Prevent infection. ??? Keep the bandage from sticking to the wound. ??? Follow instructions from your doctor about how to change your bandage: ??? Wash your hands with soap and water. If you cannot use soap and water, use hand hr generalist. ??? Change your bandage at least once a day, or as often as told by your doctor. If your dressing gets wet or dirty, change it. ??? Leave sutures, skin glue, or skin tape (adhesive) strips in place. They may need to stay in place for 2 weeks or longer. If tape strips get loose and curl up, you may trim the loose edges. Do notremove tape strips completely unless your doctor says it is okay. ??? Check your wound every day for signs of infection. Watch for: ??? Redness, swelling, or pain. ??? Fluid or blood. ??? Warmth. ??? Pus or a bad smell. ??? Have the sutures removed as told by your doctor. Follow these instructions at home: Medicines ??? Take or apply drhv-esr-zffxybd and prescription medicines only as told by your doctor. ??? If you were prescribed an antibiotic medicine or ointment, take or apply it as told by your doctor. Do not stop using the antibiotic even if you start to feel better. General instructions ??? Cover your wound with clothes or put sunscreen on when you are outside. Use a sunscreen of at least 30 SPF. ??? Do not scratch or pick at your wound. ??? Avoid stretching your wound. ??? Raise (elevate) the injured area above the level of your heart while you are sitting or lying down, if possible. ??? Drink enough fluids to keep your pee (urine) clear or pale yellow. ??? Keep all follow-up visits as told by your doctor. This is important. Contact a doctor if: ??? You were given a tetanus shot and you have any of the following at the site where the needle went in: ??? Swelling. ??? Very bad pain. ??? Redness. ??? Bleeding. ??? Your wound breaks open. ??? You have redness, swelling, or pain around your wound. ??? You have fluid or blood coming from your wound. ??? Your wound feels warm to the touch. ??? You have a fever. ??? You notice something coming out of your wound, such as wood or glass. ??? You have pain that does not get better with medicine. ??? The skin near your wound changes color. ??? You need to change your bandage often due to a lot of fluid, blood, or pus coming from the wound. ??? You get a new rash. ??? You get numbness around the wound. Get help right away if: ??? You have very bad swelling around your wound. ??? You have pus or a bad smell coming from your wound. ??? Your pain suddenly gets worse and is very bad. ??? You have painful lumps near your wound or anywhere on your body. ??? You have a red streak going away from your wound. ??? The wound is on your hand or foot, and: ??? You cannot move a finger or toe as you used to do. ??? Your fingers or toes look pale or blue. ??? You have numbness that spreads down your hand, foot, fingers, or toes. Summary ??? Sutures are stitches that are used to close wounds. ??? Taking care of your wound properly can help prevent pain and infection. ??? Keep the wound completely dry for the first 24 hours or for as long as told by your doctor. After 24???48 hours, you may shower or bathe as directed by your doctor. This information is not intended to replace advice given to you by your health care provider. Make sure you discuss any questions you have with your health care provider. Document Revised: 02/16/2018 Document Reviewed: 04/11/2017 [facility] Patient Education ?? 2020 [employer] Follow Up Care 10/18/2021 21:00:18 With:Hermes Ramirez MD Address: [address] [place] [address], [address] [place] [address]- When:1 to 2 weeks Patient Care team information Personnel Name: Hermes Ramirez MD Address: Address: [address] [place] [address] [address] [place], [place] [address]
--- OUTSIDE RECORDS SUMMARY | 2024-03-20 11:47 | XMS_ITS | Continuity of Care Document ---
Author Organization [facility] Address [address] [place] [address]- Care Team Providers Care Chief Controller Name Role Phone Hermes Ramirez Primary Care Physician Encounter ONOFRE MCGRAW [id number] Date(s): 12/06/22 - 12/06/22 [facility] [address] [place] [address]- Encounter Diagnosis Fever(Discharge Diagnosis) - 12/06/22 Viral URI(Discharge Diagnosis) - 12/06/22 Discharge Disposition: Home or Self Care Attending Physician: Beth Brandt FLATWORK IRONER Allergies, Adverse Reactions, Alerts Substance Reaction Severity [...] Daily, # 30 tab, 0 Refill(s), Pharmacy: [place], [place], 157, cm, 09/10/22 15:23:00 CDT, Height/Length [...] BID, # 60 cap, 0 Refill(s), Pharmacy: [place], [place], [address], cm, 09/10/22 15:23:00 CDT, Height/Length [...] Results Laboratory List Name Date Strep A ([facility]) POCT 12/06/22 Influenza A/B ([facility]) POCT 12/06/22 SARS-CoV-2 (Covid-19) AG ([facility]) POCT Most recent to oldest [Reference Range]: 1 SARS-CoV or CoV-2 (COVID-19) Ag ([facility]) Negative *NA* (12/06/22 3:18 PM) Employed in healthcare? No *NA* (12/06/22 3:18 PM) Symptomatic as defined by CDC? Yes *NA* (12/06/22 3:18 PM) Date of onset (Lab) 05-DEC-2022 *NA* (12/06/22 3:18 PM) Hospitalized due to COVID-19? No *NA* (12/06/22 3:18 PM) In ICU? No *NA* (12/06/22 3:18 PM) Group care resident? No *NA* (12/06/22 3:18 PM) status? Not *NA* (12/06/22 3:18 PM) Influenza A ([facility]) POCT Negative *NA* (12/06/22 3:18 PM) Influenza B ([facility]) POCT Negative *NA* (12/06/22 3:18 PM) Strep A ([facility]) POCT Negative *NA* (12/06/22 3:19 PM) Vital Signs Most recent to oldest [Reference Range]: 1 Temperature Oral [35.8-37.3 Deg C] 37 De g C (12/06/22 3:11 PM) Peripheral Pulse Rate [60-100 bpm] 93 bp m (12/06/22 3:11 PM) Blood Pressure [90-140/60-90 mmHg] 140/9 3mmHg (12/06/22 3:11 PM) Social History Social History Type Response Tobacco Current everyday tob acco user Tobacco Use:. Sex Urgent care center Note * Beth Brandt FLATWORK IRONER: PERFORM Event Display: Urgent Care Office Clinic Note Authored Date: [id number] MISHA JACKSON :1980 Age:42 years Sex:Female Visit Date:12/06/2022 Primary Care Physician: Hermes Ramirez MD Chief Complaint Pt reports a fever, sore throat, headache, and cough since yesterday. History of Present Illness Patient presented to [facility] today with complaint of fever, sore throat, headache, and cough since yesterday. Patient requesting work note due to leaving work early today. Has been taking Tylenol Cold prior to arrival. Denies any nausea, vomiting, or pain with swallowing. Denies any shortness of breath, wheezing, or sputum production. Review of Systems Constitutional:??reports??fever,??No??chills,??No??sweats,??No??weakness Eye:??No??eye redness,??Noeye pain,??Noeye discharge,??Novisual change ENMT:??No??ear pain,??reports??sore throat,??No??congestion,??No??hoarseness,??Nodrainage Respiratory:??No??shortness of breath,??reports??cough,??No??orthopnea,??No??wheezing,??Nosputum production Cardiovascular:??No??chest pain,??No??palpitations,??No??edema Gastrointestinal:??No??nausea,??No??vomiting,??No??diarrhea,??No??abdominal pain Musculoskeletal:??No??back pain,??No??trauma Neurologic:??reports??headache,??No??dizziness,??No??weakness Lymph:??No??swollen nodes Skin:??No??rash,??No??lesions Physical Exam Vitals & Measurements T:??37?C ??(Oral)?? HR:??93??(Peripheral)?? BP:??140/93?? SpO2:??98%?? General:??alert,??no acute distress. Skin:??warm,??dry, intact, ??no??rash, HENT:??No??trauma,??Normocephalic??, [...] verbalizes understanding and agrees to plan. ?? Fever??R50.9 Ordered: Throat Culture, Throat, Routine collect, RT - Routine, 12/06/22, Once, Nurse collect, Fever, Order for future visit ?? Problem List/Past Medical History Ongoing Acne [...] SARS-CoV or CoV-2 (COVID-19) Ag ([facility]) Negative 12/06/2022 15:18 CDT Electronically Signed on 12/06/22 04:51 PM Beth Brandt FLATWORK IRONER Patient Care team information Care Team Personnel Name: Jessee Jones FLATWORK IRONER Position: Physician Member Role: Nurse Practitioner Address: Address: [address] [place] [address], [address] Name: Latoya Marquez FLATWORK IRONER Position: Physician Member Role: Nurse Practitioner Address: Address: [address] [place] [address] Name: Leonila Gonzalez FLATWORK IRONER Position: Physician Member Role: Nurse Practitioner Address: Address: [address] [place] [address] Name: Beth Brandt FLATWORK IRONER Position: Physician Member Role: Nurse Practitioner Address: Address: [address] [place] [address] Name: Hermes Ramirez MD Position: Physician Member Role: Informed Provider Address: Address: [address] [place] [address], [address] [place], [place] [address] Name: Pillo Moe NP Position: Physician Member Role: Nurse Practitioner Address: Address: [address] [place] [address], [address] [facility] Care Team Related Persons Name: STACIA JONES Address: Home [address] [place] [phone] Name: ROBYN JAMA
--- OUTSIDE RECORDS SUMMARY | 2024-03-20 11:47 | XMS_ITS | Continuity of Care Document ---
Author Organization [facility] Address [address] [place] [address] Care Team Providers Care Roof Truss Builder Name Role Phone Hermes Ramirez Primary Care Physician [phone] Encounter ONOFRE MCGRAW [id number] Date(s): 07/20/23 - 07/20/[address] [address]- [place] Discharge Disposition: Home or [...] Daily, # 30 tab, 11 Refill(s), Pharmacy: [facility] [place], [place], 157.48, cm, 01/04/23 15:03:00 CDT, Height/Length [...] 0 Refill(s), 07/26/23 6:12:00 PM CDT, Pharmacy: [id number], [address].[address], cm, 07/19/23 17:49:00 CDT, Height, 81.65, [...] BID, # 60 cap, 11 Refill(s), [facility] [place] [place], [facility].[address], cm, 01/04/23 15:03:00 CDT, Height/Length Dosing, 81.65, kg, 01/04/23 15:03:00 CDT, Weight Dosing Start Date: 01/11/23 Status: Ordered pantoprazole 40 mg oral delayed release tablet 1 tab, Oral, Daily, # 90 tab, 0 Refill(s), Pharmacy: [id number], 157.[address], cm, 06/07/23 16:07:00 CDT, Height, 89.36, [...] QID, # 360 tab, 0 Refill(s), Pharmacy: [id number], 157.[address], cm, 06/07/23 16:07:00 CDT, Height, 89.36, [...] Exam Date Time Procedure Performing Provider Status 07/20/23 2:31 PM MRI Spine Thoracic w /o Contrast Neno Callaway RT(R)(MR)(CT)(ARRT); Auth (Verified) Notes: (MRI Spine Thoracic w/o Contrast) Reason For Exam: chronic thoracic back pain MRI Spine Thoracic w/o Contrast EXAM DESCRIPTION: MRI Spine Thoracic w/o Contrast REASON FOR STUDY: chronic thoracic back pain, chronic thoracic back pain TECHNIQUE: Sagittal and Axial imaging includes T1, T2, STIR and gradient echo sequences. COMPARISON: Thoracic spine CT 02/18/2023. FINDINGS: ALIGNMENT: Mild exaggerated focal kyphosis at lower thoracic spine. VERTEBRAE: Vertebral body height well-maintained. There are mixed Modic type 1 and 2 changes along the inferior endplates at T7 through T11.. CORD: Normal in size and signal intensity. THORACIC DISCS T1-T12: Mild disc bulge at C6-C7 causing moderate canal stenosis. Moderate canal stenosis at T3-T4, due to combination of congenital short pedicles and mild facet arthropathy. No substantial neural foraminal stenosis in the thoracic spine. OTHER: Congenital short pedicles contributing to diffuse canal narrowing. 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 No substantial neural foraminal stenosis in the thoracic spine. THIS IS AN ELECTRONICALLY VERIFIED FINAL REPORT 07/20/2023 4:16 PM - Electronically signed by Tavon Sofia M.D. WW: FELICIANO Report ID: [id number] Reading Location: [id number] Final Dictated by: Tavon Sofia MD Dictated DT/TM: 07/20/2023 4:19 pm Signed by: Tavon Sofia MD Signed (Electronic Signature): 07/20/2023 4:19 pm * Exam Date Time Procedure Performing Provider Status 07/20/23 3:11 PM MRI Spine Lumbar w/o Contrast Neno Callaway RT(R)(MR)(CT)(ARRT); Auth (Verified) Notes: (MRI Spine Lumbar w/o Contrast) Reason For Exam: chronic low back pain MRI Spine Lumbar w/o Contrast EXAM DESCRIPTION: MRI Spine Lumbar w/o Contrast REASON FOR STUDY: chronic thoracic back pain, chronic low back pain TECHNIQUE: Sagittal and Axial imaging includes T1, T2, STIR sequences. COMPARISON: Lumbar spine CT 02/18/2023. FINDINGS: SEGMENTATION: No transitional anatomy. The lowest well-developed disc space is labeled L5-S1. there is a partially formed disc space between S1-S2. ALIGNMENT: Mild levocurvature of the lumbar spine. VERTEBRAE: Vertebral body height maintained. Normal appearing marrow. DISCS: Well-maintained. CORD/CAUDA: Normal in size and signal intensity. Conus at the appropriate level. LOWER THORACIC: Incompletely imaged. No stenosis seen. SACRUM: No marrow edema of the visualized upper sacrum. VISUALIZED ABDOMEN: No significant abnormality. OTHER: Congenital short pedicles contributing to diffuse canal narrowing. INDIVIDUAL DISC LEVELS: L1-L2: The disc is normal in configuration. There is mild facet arthropathy. There is no neuroforaminal stenosis. There is no spinal canal stenosis. L2-L3: Minimal disc bulge, mild ligamentum flavum thickening, and epidural lipomatosis. There is moderate bilateral facet arthropathy. There is no neuroforaminal stenosis. There is mild to moderate spinal canal stenosis. L3-L4: Minimal disc bulge, ligamentum flavum thickening, and epidural lipomatosis. There is moderate bilateral facet arthropathy. There is no neuroforaminal stenosis. There is moderate spinal canal stenosis. L4-L5: Minimal disc bulge, ligamentum flavum thickening, and epidural lipomatosis. There is moderate bilateral facet arthropathy. There is no neuroforaminal stenosis. There is moderate spinal canal stenosis. L5-S1: Minimal disc bulge ligamentum flavum thickening. There is moderate bilateral facet arthropathy. There is no neuroforaminal stenosis. There is no spinal canal stenosis. 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 THIS IS AN ELECTRONICALLY VERIFIED FINAL REPORT 07/20/2023 4:08 PM - Electronically signed by Tavon Sofia M.D. WW: FELICIANO Report ID: [id number] Reading Location: [id number] Final Dictated by: Tavon Sofia MD Dictated DT/TM: 07/20/2023 4:11 pm Signed by: Tavon Sofia MD Signed (Electronic Signature): 07/20/2023 4:11 pm Social History Social History Type Response Tobacco Current everyday tob acco user Tobacco Use:. 1 Sex 1Pt states that she smokes half a pack a day. Patient Care team information Care Team Personnel Name: Jessee Jones TAKE DOWN INSPECTOR Position: Physician Member Role: Nurse Practitioner Address: Address: [address] [place] [address], [address] [place] [address]- Name: aLtoya Marquez TAKE DOWN INSPECTOR Position: Physician Member Role: Nurse Practitioner Address: Address: [address] [place] [address]- Name: Leonila Gonzalez TAKE DOWN INSPECTOR Position: Physician Member Role: Nurse Practitioner Address: Address: [address] [place] [address]- Name: Beth Brandt TAKE DOWN INSPECTOR Position: Physician Member Role: Nurse Practitioner Address: Address: [address] [place] [address] Name: Hermes Ramirez MD Position: Physician Member Role: Informed Provider Address: Address: [address] [place] [address], [address] [place] [address]- Name: Pillo Moe TAKE DOWN INSPECTOR Position: Physician Member Role: Nurse Practitioner Address: Address: [address] [place] [address], [address] [facility] Care Team Related Persons Name: STACIA JONES Address: Home [address] [id number] Name: MADY CHEN Name: MADY CHEN
--- OUTSIDE RECORDS SUMMARY | 2024-03-20 11:47 | XMS_ITS | Continuity of Care Document ---
Author Organization [facility] Address [address] [place] [address] Care Team Providers Care Care Technician Name Role Phone Hermes Ramirez Primary Care Physician Encounter ONOFRE MCGRAW [id number] Date(s): 01/15/23 - 01/15/[address] [address]- [place] Encounter Diagnosis Migraine headache(Discharge Diagnosis) - 01/15/23 Discharge Disposition: Home or Self Care Attending [...] Daily, # 30 tab, 11 Refill(s), Pharmacy: [place], [place], 157.[address], cm, 01/04/23 15:03:00 CDT, Height/Length [...] BID, # 60 cap, 11 Refill(s), Pharmacy: [place], [place], 157.48, cm, 01/04/23 15:03:00 CDT, Height/Length [...] Oral [35.8-37.3 Deg C] 36.7 Deg C (01/15/23 3:26 AM) Peripheral Pulse Rate [60-100 bpm] 82 bp m (01/15/23 3:26 AM) Respiratory Rate [12-24 br/min] 18 br/mi n (01/15/23 3:26 AM) Blood Pressure [90-140/60-90 mmHg] 173/1 07mmHg *HI* (01/15/23 3:26 AM) Mean Arterial Pressure, Cuff [65-140 mmH g] 129 mmHg (01/15/23 3:26 AM) Weight Dosing 82.00 kg (01/15/23 3:32 AM) Weight Estimated 82.00 kg (01/15/23 3:26 AM) Height/Length Dosing 157.000 cm (01/15/23 3:32 AM) Height/Length Estimated 157.000 cm (01/15/23 3:26 AM) Social History Social History Type Response Tobacco Current everyday tob acco user Tobacco Use:. Sex Hospital Discharge Instructions Patient Education 01/15/2023 04:06:58 Migraine Headache, Yjaz-be-Kpwd Migraine Headache A migraine headache is a [...] these instructions at home: Medicines ??? Take lpwa-kul-jxchiaf and prescription medicines only as told by your doctor. ??? Ask your doctor if the medicine prescribed to you: ??? Requires you to avoid driving or using heavy machinery. ??? Can cause trouble pooping (constipation). You may need to take these steps to prevent or treat trouble pooping: ??? Drink enough fluid to keep your pee (urine) pale yellow. ??? Take eeay-kjk-mkniqcg or prescription medicines. ??? Eat foods that [...] provider. Document Revised: 06/28/2019 Document Reviewed: 04/18/2019 [employer] Patient Education ?? 2022 Saranas. Follow Up Care 01/15/2023 03:26:36 With:Hermes Ramirez MD Address: [address] [place] [address], [address] [place] [address]- When:3 to 5 days Physician Emergency department Note * Maryam Cortés MD: PERFORM Event Display: ED Note Physician Authored Date: [id number] MISHA JACKSON :1980 Age:42 years Sex:Female Visit Date:01/15/2023 Primary Care Physician: Hermes Ramirez MD Basic Information ??No qualifying data available.?? Chief Complaint pt c/o migraine since early today. ??states has light and sound sensitivity, ??also c/o nausea without vomitting History Of Present Illness: Patient??returns to??ER for complaints of having RT sided headache since earlier tonight. Headache is dull, continuous, and severe, rated [...] Physical Exam Vitals & Measurements T:??36.7?C ??(Oral)?? HR:??82??(Peripheral)?? RR:??18?? BP:??173/107?? SpO2:??97%?? HT:??157.000??cm?? WT:??82.00??kg??(Estimated)?? Pain Score:??8?? O2 Therapy:??Room air?? General: [...] and affect Medical Decision Makin - Patient reports feeling better. To be discharged home. Procedure No Qualifying Data Assessment/Plan 1.??Migraine headache??G43.909 Orders: Discharge Patient, 01/15/23 4:07:00 CDT Patient Discharge Condition Improved. Discharge Disposition Home. Patient Education Migraine Headache, Yjfv-xo-Hzat Follow Up With When Contact Information Hermes Ramirez MD Within 3 to [address] [place] [address], [address] [place] [address]- Additional Instructions: Medication Reconciliation Unchanged amLODIPine (amLODIPine [...] Liver transplantation (05/08/2020)???Mammogram (2020)??? delivery???cyst [facility] from [facility]???liver transplant Medication Administration Given Benadryl, 50 mg, [...] Family History Cancer: Mother. Electronically Signed on 01/15/23 04:08 AM Maryam Cortés MD Patient Care team information Care Team Personnel Name: Jessee Jones RODDING MACHINE TENDER Position: Physician Member Role: Nurse Practitioner Address: Address: [address] [place] [address], [address] [place] [address]- Name: Latoya Marquez RODDING MACHINE TENDER Position: Physician Member Role: Nurse Practitioner Address: Address: [address] [place] [address]- Name: Leonila Gonzalez RODDING MACHINE TENDER Position: Physician Member Role: Nurse Practitioner Address: Address: [address] [place] [address]- Name: Beth Brandt RODDING MACHINE TENDER Position: Physician Member Role: Nurse Practitioner Address: Address: [address] [place] [address] Name: Hermes Ramirez MD Position: Physician Member Role: Primary Care Physician Address: Address: [address] [place] [address], [address] [place] [address]- Name: Anamika Gore MD Position: Physician - Women's Health Member Role: Informed Provider Name: Pillo Moe RODDING MACHINE TENDER Position: Physician Member Role: Nurse Practitioner Address: Address: [address] [place] [address], [address] [facility] Name: Maryam Cortés MD Position: Physician Member Role: ED Physician Address: Address: [address] [place], [place] [address] [address]- [place] Name: Carson Hood RN Position: Nurse Member Role: ED Nurse Care Team Related Persons Name: STACIA JONES Address: Home [address] [place], [place] [id number] Name: ROBYN JAMA
--- OUTSIDE RECORDS SUMMARY | 2024-03-20 11:47 | XMS_ITS | Continuity of Care Document ---
Author Organization [facility] Address [address] [place] [address] Care Team Providers Care Acid Operator Name Role Phone Hermes Ramirez Primary Care Physician [phone] Encounter [facility] [id number] Date(s): 01/30/24 - 01/30/[address] [address] Encounter Diagnosis Bilateral shoulder pain(Discharge Diagnosis) - 01/30/24 Pain in left shoulder(Discharge Diagnosis) - 01/30/24 Discharge Disposition: Home or Self Care Attending Physician: Fernando House MD Admitting Physician: Fernando House MD Allergies, Adverse Reactions, Alerts Substance Criticality Severity Reaction Reaction Severity Status codeine High criticality Severe Unknown Itching Active gentamicin High criticality Moderate Ac tive Toradol High criticality Severe Kidney fail ure as a complication of care Active NSAIDs High criticality Severe Act luis miguel erythromycin Medication interaction Active azithromycin High criticality Severe Unknown Active aspirin High criticality Severe Medication interaction Active morphine 1 Low criticality Mild redness Itching Active 1localized reaction at iv site Assessment and Plan Extracted from: Title:ED Provider Note Author:Megan House MD Date:01/30/24 Assessment/Plan Bilateral shoulder pain??M25.511 Pain in left shoulder??M25.512 Patient received morphine 2 mg IM, Phenergan 50 mg IM and Benadryl 50 mg IM. ??X-ray of left shoulder is negative She is discharged home??feeling better with orthopedic follow-up within few days Orders: Discharge Patient, 01/30/24 17:08:00 OPERATION SPECIALIST, Home Independently Patient Discharge Condition Improved Discharge Disposition Home Patient Education Shoulder Pain Follow Up With When Contact Information Follow [...] Daily, # 30 tab, 11 Refill(s), Pharmacy: [place], [place], 157.48, cm, 01/04/23 15:03:00 CDT, Height/Length [...] 2 Refill(s), Pharmacy: [facility]#[id number]- [place], 157.48, cm, 07/23/23 17:59:00 CDT, Height, 88.45, [...] 60 cap, 11 Refill(s), Pharmacy: [facility] [place], [place], 157.48, cm, 01/04/23 15:03:00 CDT, Height/Length Dosing, 81.65, kg, 01/04/23 15:03:00 CDT, Weight Dosing Start Date: 01/11/23 Status: Ordered morphine 2 mg = 1 mL, Intramuscular, Injection, Once, First Dose: 01/30/24 3:55:00 PM OPERATION SPECIALIST, Stop Date: 01/30/24 4:06:02 PM OPERATION SPECIALIST, Physician Stop, STAT Start Date: 01/30/24 Stop Date: 01/30/24 Status: Completed nicotine 21 mg/24 hr transdermal film, extended release 1 patches, Transdermal, Daily, # 14 patches, 1 Refill(s), Pharmacy: [id number], 157.48, cm, 01/01/24 14:49:00 CDT, Height, 87.09, kg, 01/01/24 14:53:00 CDT, Weight Dosing Start Date: 01/01/24 Status: Ordered Nicotrol Inhaler 10 mg inhalation device See Instructions, 6-16 cartriges/day, # 1 EA, 2 Refill(s), Pharmacy: [id number], 157.48, cm, 08/29/23 14:22:00 CDT, Height, 88, kg, 08/29/23 14:27:00 CDT, Weight Dosing Start Date: 08/29/23 Status: Ordered pantoprazole 40 mg oral delayed release tablet 1 tab, Oral, Daily, # 90 tab, 0 Refill(s), Pharmacy: [id number], 157.48, cm, 06/07/23 16:07:00 CDT, Height, 89.36, kg, 06/19/23 15:32:00 CDT, Weight Dosing Start Date: 06/20/23 Status: Ordered Pepcid 20 mg oral tablet 20 mg = 1 tab, Oral, BID, 0 Refill(s) Start Date: 09/29/20 Status: Ordered sucralfate 1 g oral tablet 1 tab, Oral, QID, # 360 tab, 0 Refill(s), Pharmacy: [id number], 157.48, cm, 08/29/23 14:22:00 CDT, Height, 88, kg, 08/29/23 14:27:00 CDT, Weight Dosing Start Date: 09/05/23 Status: Ordered venlafaxine 37.5 mg oral capsule, extended release 37.5 mg = 1 cap, Oral, Daily, # 90 cap, 0 Refill(s), Pharmacy: [id number]- [place], 157.48, cm, 09/28/23 18:18:00 CDT, Height, 81.65, kg, 09/28/23 18:20:00 CDT, Weight Dosing Start Date: 11/22/23 Status: Ordered Mental Status 01/30/24 Eye Opening Response Yanira Spontaneous ly Best Verbal Response Yanira Oriented Best Motor Response Yanira Obeys comman ds Blackwell Coma Score 15 Problem List Condition Confirmation [...] Exam Date Time Procedure Performing Provider Status 01/30/24 4:12 PM XR Shoulder Complete 2+ Views Left LeisachasityRachael RT(R)(MR)(CT)(ARRT); Auth (Verified) Notes: (XR Shoulder Complete 2+ Views Left) Reason For Exam: pain, fall XR Shoulder Complete 2+ Views Left EXAM DESCRIPTION: XR Shoulder Complete 2+ Views Left REASON FOR STUDY: Rt shoulder pain and neck pain, pain, fall TECHNIQUE: 4 radiographic view(s) of the left shoulder . COMPARISON: None FINDINGS: BONES/JOINTS: There is no acute fracture, malalignment or osseous abnormality. The joint spaces are normal. SOFT TISSUES: Within normal limits. IMPRESSION: No acute osseous abnormality. THIS IS AN ELECTRONICALLY VERIFIED FINAL REPORT 01/30/2024 4:43 PM - Electronically signed by Abdiaziz Horn M.D. JA: NASIM Report ID: [id number] Reading Location: [place] [address] Final Dictated by: Abdiaziz Horn Dictated DT/TM: 01/30/2024 4:46 pm Signed by: Abdiaziz Horn MD Signed (Electronic Signature): 01/30/2024 4:46 pm Vital Signs Most recent to oldest [Reference Range]: 1 2 Temperature Oral [35.8-37.3 Deg C] 37.1 Deg C (01/30/24 3:48 PM) Peripheral Pulse Rate [60-100 bpm] 72 bp m (01/30/24 3:48 PM) Respiratory Rate [12-24 br/min] 16 br/mi n (01/30/24 4:06 PM) 16 br/min (01/30/24 3:48 PM) Blood Pressure [90-120/60-80 mmHg] 144/8 8mmHg *HI* (01/30/24 3:48 PM) Mean Arterial Pressure, Cuff [65-140 mmH g] 107 mmHg (01/30/24 3:48 PM) Weight Estimated 83 kg (01/30/24 3:48 PM) Body Mass Index Estimated 33.67 kg/m2 (01/30/24 3:48 PM) Height/Length Estimated 157 cm (01/30/24 3:48 PM) Social History Social History Type Response Tobacco Current everyday tob acco user Tobacco Use:. Sex Sex Representation Female (finding) Hospital Discharge Instructions Patient Education 01/30/2024 17:07:45 Shoulder Pain Shoulder Pain Many things can cause shoulder pain, including: ??? An injury to the shoulder. ??? Overuse of the shoulder. ??? Arthritis. The source of the pain can be: ??? Inflammation. ??? An injury to the shoulder joint. ??? An injury to a tendon, ligament, or bone. Follow these instructions at home: Pay attention to changes in your symptoms. Let your health care provider know about them. Follow these instructions to relieve your pain. If you have a removable sling: ??? Wear the sling as told by your provider. Remove it only as told by your provider. ??? Check the skin around the sling every day. Tell your provider about any concerns. ??? Loosen the sling if your fingers tingle, become numb, or become cold. ??? Keep the sling clean. ??? If the sling is not waterproof: ??? Do not let it get wet. ??? Remove it to shower or bathe. ??? Move your arm as little as possible, but keep your hand moving to prevent swelling. Managing pain, stiffness, and swelling ??? If told, put ice on the painful area. ??? If you have a removable sling or immobilizer, remove it as told by your provider. ??? Put ice in a plastic bag. ??? Place a towel between your skin and the bag. ??? Leave the ice on for 20 minutes, 2???3 times a day. ??? If your skin turns bright red, remove the ice right away to prevent skin damage. The risk of damage is higher if you cannot feel pain, heat, or cold. ??? Move your fingers often to reduce stiffness and swelling. ??? Squeeze a soft ball or a foam pad as much as possible. This helps to keep the shoulder from swelling. It also helps to strengthen the arm. General instructions ??? Take lfcr-bcm-karmkji and prescription medicines only as told by your provider. ??? Exercise may help with pain management. Perform exercises if told by your provider. ??? You may be referred to a physical therapist to help in your recovery process. ??? Keep all follow-up visits in order to avoid any type of permanent shoulder disability or chronic pain problems. Contact a health care provider if: ??? Your pain is not relieved with medicines. ??? New pain develops in your arm, hand, or fingers. ??? You loosen your sling and your arm, hand, or fingers remain tingly, numb, swollen, or painful. Get help right away if: ??? Your arm, hand, or fingers turn white or blue. This information is not intended to replace advice given to you by your health care provider. Make sure you discuss any questions you have with your health care provider. Document Revised: 10/07/2022 Document Reviewed: 10/07/2022 [employer] Patient Education ?? 2022 [employer] Follow Up Care 01/30/2024 15:23:34 With:Follow up with primary care provider Address:Unknown When:2 to 4 days Physician Emergency department Note * Fernando House MD: PERFORM, MODIFY Event Display: ED Note Physician Authored Date: [id number] MISHA JACKSON :1980 Age:43 years Sex:Female Visit Date:01/30/2024 Primary Care Physician: Hermes Ramirez MD Basic Information Time Seen: Fernando House MD / 01/30/2024 15:33 Chief Complaint Pt to ER w c/o R shoulder/shoulder lachelle pain et neck pain. Pt having muscle spasms in the area. Ptfell at work some weeks back et has still not recovered. Pt states she is to see ortho this Thur. No PH. History Of Present Illness: Patient had a fall about a month ago??landing on the right knee and both hands. ??Since then she has had pain in the??shoulders??particularly the right shoulder??and in the right knee. ??Her right knee has improved??significant degree??but she continues to have pain??in both shoulders radiating to the neck.?? Patient was mostly bothered with the right shoulder to begin with and she underwent MRI of the right shoulder and of the right knee??with no major abnormal finding, she is having more trouble with her left shoulder now??than she did earlier??and wanted to have that checked. ??She has an appointment to be seen by??Ortho??in few days. ??Patient has been to our ER multiple times??for similar complaints??and received pain meds mostly morphine shots??as she cannot take NSAIDs with historyof??kidney transplant and liver transplant.?? Patient has moderately severe pain in both shoulders radiating up to the neck. ??There is no dyspnea Review of Systems: Constitutional:?No??fevers,?No??chills,?No??sweats Eye:?No??recent visual problems ENT:?No??ear pain,?No??nasal congestion,?No??sore throat Respiratory:?No??shortness of breath,?No??cough Cardiovascular:?No??Chest pain,?No??palpitations,?No??syncope Gastrointestinal:?Nonausea,?No??vomiting,?No??diarrhea Genitourinary:?No??hematuria Clemnete/Lymph:?No??bruising tendency,?No??swollen lymph glands Endocrine:?No??excessive thirst,??No??excessive hunger Musculoskeletal:??No??back pain,??Positive for??neck pain,??Positive for??joint pain,??No??muscle pain,??No??decreased range of motion Integumentary:?No??rash,?No??pruritus,?No??abrasions Neurologic: Alert & oriented X 4 Psychiatric:?No??anxiety,?No??depression Physical Exam Vitals & Measurements T:??37.1?C ??(Oral)?? HR:??72??(Peripheral)?? RR:??16?? BP:??144/88?? SpO2:??98%?? HT:??157??cm?? WT:??83??kg??(Estimated)?? BMI:??33.67?? Pain Score:??7?? O2 Therapy:??Room air?? General: [Alert and oriented, well nourished, no acute distress].?? Eye: [PERRL, EOMI, normal conjunctiva]. HENT: [Normocephalic, ??normal hearing, moist oral mucosa, no scleral icterus, no sinus tenderness].?? Neck: [Supple, non-tender, no carotid bruits, no JVD, no lymphadenopathy].?? Musculoskeletal: [Others are normal to inspection with no swelling, ecchymosis or deformity.?? There is moderate tenderness on palpation of the right shoulder??and also of the left shoulder.?? Both shoulders had good range of motion with abduction up to 150 degrees Skin: [Skin is warm, dry and pink, no rashes or lesions]. Neurologic: [Awake, alert and oriented X4, CN I-XII intact]. Psychiatric: [Cooperative, appropriate mood and affect]. Procedure No Qualifying Data Assessment/Plan Bilateral shoulder pain??M25.511 Pain in left shoulder??M25.512 Patient received morphine 2 mg IM, Phenergan 50 mg IM and Benadryl 50 mg IM. ??X-ray of left shoulder is negative She is discharged home??feeling better with orthopedic follow-up within few days Orders: Discharge Patient, 01/30/24 17:08:00 OPERATION SPECIALIST, Home Independently Patient Discharge Condition Improved Discharge Disposition Home Patient Education Shoulder Pain Follow Up With When Contact Information Follow [...] mg, Intramuscular morphine, 2 mg, Intramuscular Phenergan, 50 mg, Intramuscular Allergies NSAIDs Toradol??(Kidney failure as a complication of care) aspirin??(Medication interaction) azithromycin??(Unknown) codeine??(Unknown, Itching) gentamicin morphine??(redness, Itching) erythromycin??(Medication interaction) Social History Alcohol Never Electronic Cigarette/Vaping Electronic Cigarette Use: Never. Substance Use Never Tobacco Current everyday tobacco user Tobacco Use:.- Comments: Pt states that she smokes half a pack a day. Family History Cancer: Mother. Electronically Signed on 01/30/2024 19:56 OPERATION SPECIALIST Fernando House MD Patient Care team information Care Team Personnel Name: Jessee Jones TRANSPLANTER Position: Physician Member Role: Nurse Practitioner Address: [address] [place] [address], [address] Name: Latoya Marquez TRANSPLANTER Position: Physician Member Role: Nurse Practitioner Address: [address] [place] [address] Name: Leonila Gonzalez TRANSPLANTER Position: Physician Member Role: Nurse Practitioner Address: [address] [place] [address] Name: Beth Brandt TRANSPLANTER Position: Physician Member Role: Nurse Practitioner Address: [address] [place] [address] Name: Hermes Ramirez MD Position: Physician Member Role: Informed Provider Address: [address] [place] [address], [address] Name: Pillo Moe TRANSPLANTER Position: Physician Member Role: Nurse Practitioner Address: [address] [place] [address], [address] [facility] Care Team Related Persons Name: STACIA JONES Name: ROBYN JAMA Name: NAIF CHOI Name: MADY CHEN Name: MADY CHEN Insurance Providers Guarantor name: MISHA JACKSON Health Plan Information #: 2 Payer: [employer] APPROVED Member Number: [id number] Policy Number: Health Plan Information #: 1 Payer: [facility] MEDICAID MGD CARE Member Number: [id number] Policy Number: Health Plan Information #: 3 Payer: MISC Workers Comp Member Number: NA Policy Number: NA
--- OUTSIDE RECORDS SUMMARY | 2024-03-20 11:47 | XMS_ITS | Continuity of Care Document ---
Author Organization [facility] Address [address] [place] [address] Care Team Providers Care Jig Grinder Set Up Operator Name Role Phone Hermes Ramirez Primary Care Physician [phone] Encounter [facility] [id number] Date(s): 04/07/22 - 04/07/[address] [address] Encounter Diagnosis Diarrhea(Discharge Diagnosis) - 04/07/22 Headache(Discharge Diagnosis) - 04/07/22 Discharge Disposition: Home or Self Care Attending [...] Plan Future Appointments Diagnostic Tests Pending * Stool Culture LC 04/07/22 * Giardia lamblia Ag, EIA LC 04/07/22 * Cryptosporidium EIA LC 04/07/22 * Ova + Parasite Exam LC 04/07/22 Future Scheduled Tests Laboratory* Giardia lamblia Ag, [...] wheezing, # 6.7 g, 0 Refill(s), Pharmacy: [place], [place], 73, cm, 09/13/21 23:53:00 CDT, Height/Length [...] needed, # 12 cap, 0 Refill(s), Pharmacy: [place], [place], 157, cm, 11/04/21 20:02:00 CDT, Height/Length [...] # 180 tab, 3 Refill(s), Pharmacy: [facility], 157.48, cm, 02/07/22 18:45:00CST, Height/Length Dosing, 72.57, kg, 02/07/22 18:45:00 COMMERCIAL LINES UNDERWRITER, Weight Dosing Start Date: 02/13/22 Status: Ordered oseltamivir 30 mg oral capsule 30 mg = 1 cap, Oral, BID, # 10 cap, 0 Refill(s), Pharmacy: [facility] [place], [place], 157.48, cm, 03/16/22 18:01:00 COMMERCIAL LINES UNDERWRITER, Height/Length Dosing, 77.11, kg, 03/16/22 18:01:00 COMMERCIAL LINES UNDERWRITER, Weight Dosing Start Date: 03/16/22 Status: Ordered Pepcid 20 mg oral tablet 20 mg = 1 tab, Oral, BID, 0 Refill(s) Start Date: 09/29/20 Status: Ordered Phenergan 25 mg oral tablet 25 mg = 1 tab, Oral, every 6 hr, PRN as needed for nausea/vomiting, # 20 tab, 0 Refill(s), Pharmacy: [place], [place], 157, cm, 09/29/21 23:03:00 CDT, Height/Length [...] [35.8-37.3 Deg C] 37 De g C (04/07/22 1:12 AM) Peripheral Pulse Rate [60-100 bpm] 85 bp m (04/07/22 1:12 AM) Respiratory Rate [12-24 br/min] 20 br/mi n (04/07/22 1:12 AM) Blood Pressure [90-140/60-90 mmHg] 140/8 9mmHg (04/07/22 1:12 AM) Weight 82.00 kg (04/07/22 1:12 AM) Weight Dosing 82.00 kg (04/07/22 1:43 AM) Height 157.000 cm (04/07/22 1:12 AM) Height/Length Dosing 157.000 cm (04/07/22 1:43 AM) Body Mass Index 33.000 kg/m2 (04/07/22 1:12 AM) Social History Social History Type Response Smoking Status 5-9 cigarettes (betw een 1/4 to 1/2 pack)/day in last 30 days entered on: 05/12/21 Sex Hospital Discharge Instructions Patient Education 04/07/2022 02:34:41 Diarrhea, Adult Diarrhea, Adult Diarrhea is frequent [...] oral rehydration solution (ORS). This is an ntbm-rok-hgosaba medicine that helps returnyour body to its [...] sports drinks, and soda. ??? Eat bland, zlwq-gg-fjlppz foods in small amounts as you are able. These foods include bananas, applesauce, rice, lean meats, toast, and crackers. ??? Avoid alcohol. ??? Avoid spicy or fatty foods. Medicines ??? Take ekvk-xkx-cqbkypj and prescription medicines only as told by your health care provider. ??? If you were prescribed an antibiotic medicine, take it as told by your health care provider. Donot stop using the antibiotic even if you start to feel better. General instructions ??? Wash your hands often using soap and water. If soap and water are not available, use a hand tie binder. Others in the household should wash their [...] soap and water are not available,use hand tie binder. ??? Contact a health care provider if your diarrhea gets worse or you have new symptoms. ??? Get help right away if you have signs of dehydration. This information is not intended to replace advice given to you by your health care provider. Make sure you discuss any questions you have with your health care provider. Document Revised: 07/23/2019 Document Reviewed: 08/10/2018 [employer] Patient Education ?? 2021 [employer] Follow Up Care 04/07/2022 01:12:01 With:Hermes Ramirez MD Address: [address] [place] [address], [address] [place] [address]- When:1 to 2 days Comments:If you have worsening abdominal pain, blood in your stools, weakness, or feel like you are going topass out, return to the emergency department immediately. Physician Emergency department Note * Akil Casas MD: PERFORM Event Display: ED Note Physician Authored Date: [id number] MISHA JACKSON :1980 Age:41 years Sex:Female Visit Date:04/07/2022 Primary Care Physician: Hermes Ramirez MD Basic Information Time Seen: Akil Casas MD / 04/07/2022 02:03 Chief Complaint pt was seentues for headache saw her PCP today for finger pain and back pain did not tell PCP she had diarrhea yasmeen she only went 2 times pt states headache is never gone but got worse this afternoon History Of Present Illness: 41-year-old woman with a history of??hepatic and renal transplant on immunosuppression,??chronic migraines, and??comes the emergency department complaining of a worsening headache??chronic??neck pain??that never really went away after her visit here 2 days ago??and, since this morning??copious watery diarrhea.?? Patient states she has had crampy abdominal pain??but she has??seen no blood in her stool??nor has she had??sick exposure, fever,??dysuria,??vomiting. ??She has some nausea??that she associates with her headache.?? She states the pain is typical for her migraines.?? She has recently been on sirolimus and??mycophenolate.?? She denies recent antibiotic use. Review of Systems: Constitutional:?No??fevers,?No??chills Eye:?No??recent visual problems ENT:?No??ear pain,?No??nasal congestion,?No??sore throat Respiratory:?No??shortness of breath,?No??cough Cardiovascular:?No??Chest pain,?No??palpitations,?No??syncope Gastrointestinal:?Positive fornausea,?No??vomiting,?Positive for??diarrhea Genitourinary:?No??hematuria,?? no dysuria Musculoskeletal:??No??back pain,??Positive for??neck pain,??No??joint pain,??No??muscle pain,??No??decreased range of motion Neurologic: No weakness, no numbness, positive for headache Physical Exam Vitals & Measurements T:??37?C ??(Oral)?? HR:??85??(Peripheral)?? RR:??20?? BP:??140/89?? SpO2:??98%?? HT:??157.000??cm?? WT:??82.00??kg?? BMI:??33.000?? Pain Score:??8?? O2 Therapy:??Room air?? General: Alert and oriented, well nourished,?Mild??acute distress Eye: PERRL, EOMI,?Normal??conjunctiva HENT: Normocephalic, moist oral mucosa,?No??scleral icterus Neck: Supple, non-tender,?No??carotid bruits,?No??JVD,?No??lymphadenopathy Lungs: Clear to auscultation,?Non-labored?? respiration Heart:?Normal?? rate,?Regular??rhythm,?No??murmur Abdomen: Soft, non-tender, non-distended,?Normal?? bowel sounds Musculoskeletal:?Normal?? range of motion and strength,?No??tenderness,?No??swelling Skin: Skin is warm, dry and pink,?No??rashes,?No??lesions Neurologic: Awake, alert and oriented X4, CN II-XII intact Psychiatric: Cooperative, appropriate mood and affect Procedure No Qualifying Data Assessment/Plan 1.??Diarrhea??R19.7 Patient states that??she has to leave??for family reasons.?? No specimens were??obtained.?? As she is immunosuppressed, I will order outpatient stool studies. 2.??Headache??R51.9 After I offered??diphenhydramine and Phenergan??for her headache and nausea??and told her that I would not be given any narcotic pain medications??she states ??You might as well not even give me those because they do not work. Orders: diphenhydrAMINE, 50 mg = 1 mL, IM, Injection, Once, First Dose: 04/07/22 3:00:00 COMMERCIAL LINES UNDERWRITER, Stop Date: 04/07/22 3:00:00 COMMERCIAL LINES UNDERWRITER, Physician Stop Phenergan, 25 mg = 1 mL, IM, Injection, Once, First Dose: 04/07/22 2:11:00 COMMERCIAL LINES UNDERWRITER, Stop Date: 232:11:00 COMMERCIAL LINES UNDERWRITER, Physician Stop, NOW Sodium Chloride 0.9% 1,000 mL, Total Volume (mL): 1,000, 1,000 mL, Soln-IV, IV, 999 mL/hr, Start Date: 04/07/22 2:11:00 COMMERCIAL LINES UNDERWRITER, NOW, 82 kg, Populate Charting Weight From Order, 1.89, m2 Cryptosporidium EIA LC, Stool, Stat Collect, 04/07/22 2:14:00 COMMERCIAL LINES UNDERWRITER, Once, Nurse collect, Print Label Giardia lamblia Ag, EIA LC, Stool, Stat Collect, 04/07/22 2:12:00 COMMERCIAL LINES UNDERWRITER, Once, Nurse collect, Print Label Ova + Parasite Exam LC, Stool, Stat Collect, 04/07/22 2:14:00 COMMERCIAL LINES UNDERWRITER, Once, Nurse collect, Print Label Saline Lock Insert, 04/07/22 2:11:00 COMMERCIAL LINES UNDERWRITER, Once, Stop date 04/07/22 2:11:00 COMMERCIAL LINES UNDERWRITER Stool Culture LC, Stool, Stat Collect, 04/07/22 2:12:00 COMMERCIAL LINES UNDERWRITER, Once, Nurse collect, Print Label Patient Discharge Condition Good Discharge Disposition Home - left before treatment could be given and before labs obtained Patient Education Diarrhea, Adult Follow Up With When Contact Information Hermes Ramirez MD Within 1 to [address] [place] [address], [address] [place] [address]- Additional Instructions: If you have worsening abdominal pain, blood in your stools, weakness, or feel like you are going to pass out, return to the emergency department immediately. Medication Reconciliation Unchanged albuterol (albuterol 90 mcg/inh [...] Family History Cancer: Mother. Electronically Signed on 04/07/22 02:35 AM Akil Casas MD Patient Care team information Personnel Name: Hermes Ramirez MD Address: Address: [address] [place] [address], [address] [place] [address]
--- OUTSIDE RECORDS SUMMARY | 2024-03-20 11:47 | XMS_ITS | Continuity of Care Document ---
Author Organization [facility] Address [address] [place] [address] Care Team Providers Care Barrel Rifler Button Name Role Phone Hermes Ramirez Primary Care Physician [phone] Encounter ONOFREEver MCGRAW [id number] Date(s): 07/19/23 - 07/19/[address] [address]- [place] Encounter Diagnosis Headache, chronic migraine without aura, intractable(Discharge Diagnosis) - 07/19/23 Chronic back pain(Discharge Diagnosis) - 07/19/23 Other chronic pain(Discharge Diagnosis) - 07/19/23 Discharge Disposition: Home or Self Care Attending [...] from: Title:ED Provider Note Author:Jesus Khan MD Date:07/19/23 Assessment/Plan 1.??Headache, chronic migraine without aura, intractable??G43.719 2.??Chronic back pain??M54.9 Other chronic pain??G89.29 Orders: Benadryl, 25 mg = 0.5 mL, Intramuscular, Injection, Once, First Dose: 07/19/23 18:00:00 CDT, Stop Date: 07/19/23 18:00:00 CDT, Physician Stop, Routine morphine, 2 mg = 1 mL, Intramuscular, Injection, Once, First Dose: 07/19/23 18:00:00 CDT, Stop Date: 07/19/23 18:00:00 CDT, Physician Stop, Routine Phenergan, 25 mg = 1 mL, Intramuscular, Injection, Once, First Dose: 07/19/23 18:00:00 CDT, Stop Date: 07/19/23 18:00:00 CDT, Physician Stop, Routine Her current migraine??headaches and chronic back pain.?? Boil left inner thigh.?? Boil??is much improved??after??took antibiotics??there is no redness.?? No swelling??noticed.?? Will give another??week??of??clindamycin??200 mg 3 times daily.?? Also medication given for her??migraine??(Benadryl??and Phenergan??as well as morphine). ??Follow-up with PCP Patient Discharge Condition Good Discharge Disposition Discharge home Patient Education Chronic Migraine Headache Chronic Back Pain, Ylxf-uo-Uaft Follow Up With When Contact Information Hermes Ramirez MD Within 1 week [address] [facility], [address] [place] [address]- ?? Additional Instructions: Continue home medications.?? Return to ED symptoms worsen. Future Appointments Future Scheduled Tests [...] Daily, # 30 tab, 11 Refill(s), Pharmacy: [facility] - [place], [place], 157.48, cm, 01/04/23 15:03:00 CDT, Height/Length [...] 0 Refill(s), 07/26/23 6:12:00 PM CDT, Pharmacy: [id number], 157.48, cm, 07/19/23 17:49:00 CDT, Height, 81.65, [...] BID, # 60 cap, 11 Refill(s), Pharmacy: [place], [place], 157.48, cm, 01/04/23 15:03:00 CDT, Height/Length Dosing, 81.65, kg, 01/04/23 15:03:00 CDT, Weight Dosing Start Date: 01/11/23 Status: Ordered pantoprazole 40 mg oral delayed release tablet 1 tab, Oral, Daily, # 90 tab, 0 Refill(s), Pharmacy: [id number], 157.48, cm, 06/07/23 16:07:00 CDT, Height, 89.36, [...] 360 tab, 0 Refill(s), Pharmacy: [id number], 157.48, cm, 06/07/23 16:07:00 CDT, Height, 89.36, [...] Oral [35.8-37.3 Deg C] 37.3 Deg C (07/19/23 5:35 PM) Peripheral Pulse Rate [60-100 bpm] 78 bp m (07/19/23 5:35 PM) Respiratory Rate [12-24 br/min] 20 br/mi n (07/19/23 5:35 PM) Blood Pressure [90-140/60-90 mmHg] 156/8 9mmHg *HI* (07/19/23 5:35 PM) Mean Arterial Pressure, Cuff [65-140 mmH g] 111 mmHg (07/19/23 5:35 PM) Weight 81.65 kg (07/19/23 5:35 PM) Weight Dosing 81.650 kg (07/19/23 5:35 PM) Height 157.48 cm (07/19/23 5:35 PM) Body Mass Index 32.92 kg/m2 (07/19/23 5:35 PM) Social History Social History Type Response Tobacco Current everyday tob acco user Tobacco Use:. 1 Sex 1Pt states that she smokes half a pack a day. Hospital Discharge Instructions Patient Education 07/19/2023 18:07:43 Chronic Migraine Headache Chronic Migraine Headache A [...] these instructions at home: Medicines ??? Take mpyz-rdo-cokvmyh and prescription medicines only as told by [...] Headache and Migraine Patients (CHAMP): headachemigraine.org ??? Citizen Of [place] Migraine Foundation: americanmigrainefoundation.org ??? National Headache Foundation: [...] provider. Document Revised: 08/18/2022 Document Reviewed: 04/22/2020 [employer] Patient Education ?? 2022 [employer] 07/19/2023 18:07:41 Chronic Back Pain, Iwpv-xb-Vfht Chronic Back Pain Chronic back pain is [...] them backward. ??? 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 ??? Take [...] body. ??? Avoid twisting. Medicines ??? Take tgeo-pjg-pxtgzft and prescription medicines only as told by [...] your pee (urine) pale yellow. ??? Take bdlf-phn-zckzctw or prescription medicines. ??? Eat foods that [...] provider. Document Revised: 10/24/2022 Document Reviewed: 10/24/2022 [employer] Patient Education ?? 2022 [employer] Follow Up Care 07/19/2023 17:23:37 With:Hermes Ramirez MD Address: [address] [place] [address], [address] [place] [id number]- When:1 week Comments:Continue home medications.?? Return to ED symptoms worsen. Physician Emergency department Note * Jesus Khan MD: PERFORM Event Display: ED Note Physician Authored Date: [id number] MISHA JACKSON :1980 Age:42 years Sex:Female Visit Date:07/19/2023 Primary Care Physician: Hermes Ramirez MD Basic Information Time Seen: Jesus Khan MD / 07/19/2023 17:47 Chief Complaint complaining of migraine onset last night states is normal migraine. and mid back pain radiating down into bilateral hips right side more than left x 1 year yet worse the last 2 weeks. ??states is scheduled for mri tomorrow. ??prehospital tylenol 3pm History Of Present Illness: 42 years old female comes in complaining of recurrent chronic migraine headache.?? Also mentions that she has??chronic??back pain??and is??bothering more the last few days. ??Patient mention she states she has an MRI scheduled for tomorrow??around 1:30 PM.?? Also??mentions boil on her left inner thi gh??that she has had for over 3 weeks.?? She was??prescribed clindamycin??3 weeks ago or so.?? States she has some discomfort??over the??boil. Review of Systems: Constitutional:?No??fevers,?No??chills,?No??sweats Eye:?No??recent visual problems ENT:?No??ear pain,?No??nasal congestion,?No??sore throat Respiratory:?No??shortness of breath,?No??cough Cardiovascular:?No??Chest pain,?No??palpitations,?No??syncope Gastrointestinal:?Nonausea,?No??vomiting,?No??diarrhea Genitourinary:?No??hematuria Clemente/Lymph:?No??bruising tendency,?No??swollen lymph glands Endocrine:?No??excessive thirst,??No??excessive hunger Musculoskeletal:??Positive for??back pain,??No??neck pain,??No??joint pain,??No??muscle pain,??No??decreased range of motion Integumentary:?No??rash,?No??pruritus,?No??abrasions;??small boil??left??inner thigh Neurologic: Alert & oriented X 4 Psychiatric:?No??anxiety,?No??depression Physical Exam Vitals & Measurements T:??37.3?C ??(Oral)?? HR:??78??(Peripheral)?? RR:??20?? BP:??156/89?? SpO2:??98%?? HT:??157.48??cm?? WT:??81.65??kg?? BMI:??32.92?? Pain Score:??7?? O2 Therapy:??Room air?? General: Alert and oriented, well nourished,?No??acute distress Eye: PERRL, EOMI,?Normal?conjunctiva HENT: Normocephalic, clear tympanic membranes,?Normal? hearing, moist oral mucosa,?No??scleral icterus,?No??sinus tenderness Neck: Supple, non-tender,?No??carotid bruits,?No??JVD,?No??lymphadenopathy Lungs:??Clear to auscultation?? Respiration:??Non-Labored Heart:?Normal? rate,?Regular??rhythm,?No??murmur,?No??gallop,?No??edema Breast:?No??lumps,?No??bumps,?No??scars,?Normal? nipples Abdomen: Soft, non-tender, non-distended,?Normal? bowel sounds,?No??masses Musculoskeletal:?Normal? range of motion and strength,?No??tenderness,?No??swelling Skin: Skin is warm, dry and pink,?No??rashes,?No??lesions;??small boil inner aspect left thigh;??no??induration, no swelling, no redness,??there is very mild??discomfort on palpation. Neurologic: Awake, alert and oriented X4, CN II-XII intact Psychiatric: Cooperative, appropriate mood and affect Medical Decision Making: Phenergan 25 mg IM. ??Benadryl 25 mg IM.?? Morphine 2 mg IM. Procedure No Qualifying Data Assessment/Plan 1.??Headache, chronic migraine without aura, intractable??G43.719 2.??Chronic back pain??M54.9 Other chronic pain??G89.29 Orders: Benadryl, 25 mg = 0.5 mL, Intramuscular, Injection, Once, First Dose: 07/19/23 18:00:00 CDT, Stop Date: 07/19/23 18:00:00 CDT, Physician Stop, Routine morphine, 2 mg = 1 mL, Intramuscular, Injection, Once, First Dose: 07/19/23 18:00:00 CDT, Stop Date: 07/19/23 18:00:00 CDT, Physician Stop, Routine Phenergan, 25 mg = 1 mL, Intramuscular, Injection, Once, First Dose: 07/19/23 18:00:00 CDT, Stop Date: 07/19/23 18:00:00 CDT, Physician Stop, Routine Her current migraine??headaches and chronic back pain.?? Boil left inner thigh.?? Boil??is much improved??after??took antibiotics??there is no redness.?? No swelling??noticed.?? Will give another??week??of??clindamycin??200 mg 3 times daily.?? Also medication given for her??migraine??(Benadryl??andPhenergan??as well as morphine). ??Follow-up with PCP Patient Discharge Condition Good Discharge Disposition Discharge home Patient Education Chronic Migraine Headache Chronic Back Pain, Gcxa-cr-Hlbx Follow Up With When Contact Information Hermes Ramirez MD Within [address], [address] [place] [phone]- Additional Instructions: Continue home medications.?? Return to ED symptoms worsen. Medication Reconciliation Unchanged amLODIPine (amLODIPine [...] Liver transplantation (05/08/2020)???Mammogram (2020)??? delivery???cyst removal from [facility]???Hernia???liver transplant Allergies NSAIDs Toradol??(Kidney failure as [...] Attestation Follow-up with PCP Electronically Signed on 07/19/23 06:08 PM Jesus Khan MD Patient Care team information Care Team Personnel Name: Jessee Jones INSOLE STIFFENER Position: Physician Member Role: Nurse Practitioner Address: Address: [address] [facility], [address] [place] [address]- Name: Latoya Marquez INSOLE STIFFENER Position: Physician Member Role: Nurse Practitioner Address: Address: [address] [place] [address]- Name: Leonila Gonzalez INSOLE STIFFENER Position: Physician Member Role: Nurse Practitioner Address: Address: [address] [place] [address]- Name: Beth Brandt INSOLE STIFFENER Position: Physician Member Role: Nurse Practitioner Address: Address: [address] [place] [address] Name: Hermes Ramirez MD Position: Physician Member Role: Informed Provider Address: Address: [address] [facility], [address] [place] [address]- Name: Pillo Moe INSOLE STIFFENER Position: Physician Member Role: Nurse Practitioner Address: Address: [address] [facility], [address] [facility] Care Team Related Persons Name: STACIA JONES Address: Home [address] [id number] Name: MADY CHEN Name: MADY CHEN
--- OUTSIDE RECORDS SUMMARY | 2024-03-20 11:48 | XMS_ITS | Continuity of Care Document ---
Author Organization [facility] Address [address] [place] [address] Care Team Providers Care Rigging Supervisor Name Role Phone Hermes Ramirez Primary Care Physician [phone] Encounter ONOFRE MARILUZ [id number] Date(s): 09/15/23 - 09/15/[address] [address]- [place] Encounter Diagnosis Low grade fever(Discharge Diagnosis) - 09/15/23 Acute migraine(Discharge Diagnosis) - 09/15/23 Chronic bilateral low back pain(Discharge Diagnosis) - 09/15/23 Other chronic pain(Discharge Diagnosis) - 09/15/23 Left against medical advice(Discharge Diagnosis) - 09/15/23 Discharge Disposition: Left Against Medical Advice Attending [...] Appointments Diagnostic Tests Pending * Blood Culture 09/15/23 * Blood Culture 09/15/23 Future Scheduled Tests Radiology* MG Mammo Diagnostic [...] Daily, # 30 tab, 11 Refill(s), Pharmacy: [place], [place], 157.48, cm, 01/04/23 15:03:00 CDT, Height/Length Dosing, 81.65, kg, 01/04/23 15:03:00 CDT, Weight Dosing Start Date: 01/11/23 Status: Ordered aspirin 81 mg oral delayed release tablet 81 mg = 1 tab, Oral, Daily, # 30 tab, 0 Refill(s) Start Date: 04/05/21 Status: Ordered gabapentin 300 mg oral capsule 600 mg = 2 cap, Oral, BID, # 120 cap, 2 Refill(s), [facility], 157.48, cm, 07/23/23 17:59:00 CDT, [...] BID, # 60 cap, 11 Refill(s), Pharmacy: [place], [place], 157.48, cm, 01/04/23 15:03:00 CDT, Height/Length Dosing, 81.65, kg, 01/04/23 15:03:00 CDT, Weight Dosing Start Date: 01/11/23 Status: Ordered Nicotrol Inhaler 10 mg inhalation device See Instructions, 6-16 cartriges/day, # 1 EA, 2 Refill(s), Pharmacy: [address], 157.48, cm, 08/29/23 14:22:00 CDT, Height, 88, kg, 08/29/23 14:27:00 CDT, Weight Dosing Start Date: 08/29/23 Status: Ordered pantoprazole 40 mg oral delayed release tablet 1 tab, Oral, Daily, # 90 tab, 0 Refill(s), Pharmacy: [id number], 157.48, cm, 06/07/23 16:07:00 CDT, Height, 89.36, [...] QID, # 360 tab, 0 Refill(s), [facility]: [id number], 157.48, cm, 08/29/23 14:22:00 CDT, Height, 88, kg, 08/29/23 14:27:00 CDT, Weight Dosing Start Date: 09/05/23 Status: Ordered venlafaxine 37.5 mg oral capsule, extended release 37.5 mg = 1 cap, Oral, Daily, # 90 cap, 0 Refill(s), Pharmacy: [id number] [place], 157.48, cm, 08/29/23 14:22:00 CDT, Height, 88, [...] 2normal 3normal Results Laboratory List Name Date Respiratory Panel Mini ([facility]) 4 C-Reactive Protein 09/15/23 CBC w/ Diff 09/15/23 Cardiac Profile HS 09/15/23 Comprehensive Metabolic Panel 09/15/23 Lactic Acid 09/15/23 Magnesium Level 09/15/23 Automated Diff 09/15/23 Urinalysis with Culture if Indicated 08/19 11/10 .Urine Volume 09/15/23 Urinalysis Microscopic 09/15/23 Most recent to oldest [Reference Range]: 1 WBC [4.0-11.5 K/mcL] 6.2 K/mcL (09/15/23 2:50 PM) RBC [4.20-5.40 x10^6/mcL] 3.88 x10^6/mcL *LOW* (09/15/23 2:50 PM) Neutro Auto 59.9 % *NA* (09/15/23 2:50 PM) Lymph Auto 27.8 % *NA* (09/15/23 2:50 PM) Ada Auto 9.0 % *NA* (09/15/23 2:50 PM) Basophil Auto 0.2 % *NA* (09/15/23 2:50 PM) BUN [7-18 mg/dL] 26 mg/dL *HI* (09/15/23 2:50 PM) UA Color Yellow (09/15/23 1:24 PM) UA WBC [0-5] None (09/15/23 1:24 PM) Glucose Level [70-110 mg/dL] 96 mg/dL (09/15/23 2:50 PM) Potassium Level [3.5-5.1 mmol/L] 3.9 mmo l/L (09/15/23 2:50 PM) Baso Absolute [0.0-0.1 x10^3/mcL] 0.0 x1 0^3/mcL (09/15/23 2:50 PM) MCV [78.0-100.0 fL] 97.7 fL (09/15/23 2:50 PM) UA Urobilinogen [Normal mg/dL] Normal mg /dL (09/15/23 1:24 PM) UA Bili [Negative mg/dL] Negative mg/dL (09/15/23 1:24 PM) CRP [0.0-3.0 mg/L] 1.9 mg/L (09/15/23 2:50 PM) UA Ketones [Negative mg/dL] Negative mg/ dL (09/15/23 1:24 PM) AST [15-37 unit/L] 16 unit/L (09/15/23 2:50 PM) ALT [12-78 unit/L] 20 unit/L (09/15/23 2:50 PM) MCHC [29.0-37.5 g/dL] 34.8 g/dL (09/15/23 2:50 PM) Sodium Level [136-145 mmol/L] 143 mmol/L (09/15/23 2:50 PM) UA RBC [0-3] None (09/15/23 1:24 PM) UA Leuk Est [Negative Guille/mcL] Negative Guille/mcL (09/15/23 1:24 PM) Lymph Absolute [0.8-5.8 x10^3/mcL] 1.7 x 10^3/mcL (09/15/23 2:50 PM) UA Nitrite [Negative] Negative (09/15/23 1:24 PM) UA Glucose [Normal mg/dL] Normal mg/dL (09/15/23 1:24 PM) Hct [36.0-48.0 %] 37.9 % (09/15/23 2:50 PM) UA Bacteria [None Seen] Occasional *ABN* (09/15/23 1:24 PM) Calcium Level [8.5-10.1 mg/dL] 9.0 mg/dL (09/15/23 2:50 PM) Ada Absolute [0.1-1.5 x10^3/mcL] 0.6 x1 0^3/mcL (09/15/23 2:50 PM) Albumin Level [3.4-5.0 g/dL] 3.2 g/dL *LOW* (09/15/23 2:50 PM) Protein Total [6.4-8.2 g/dL] 6.7 g/dL (09/15/23 2:50 PM) UA Protein [Negative mg/dL] Negative mg/ dL (09/15/23 1:24 PM) MCH [27.0-34.0 pg] 34.0 pg (09/15/23 2:50 PM) Magnesium Level [1.8-2.4 mg/dL] 1.7 mg/d L *LOW* (09/15/23 2:50 PM) Neutro Absolute [1.5-8.1 x10^3/mcL] 3.7 x10^3/mcL (09/15/23 2:50 PM) Bilirubin Total [0.0-1.0 mg/dL] 0.4 mg/d L (09/15/23 2:50 PM) Hgb [12.0-16.0 g/dL] 13.2 g/dL (09/15/23 2:50 PM) Alk Phos [46-130 unit/L] 220 unit/L *HI* (09/15/23 2:50 PM) UA Blood [Negative Rocael/mcL] Negative Rocael /mcL (09/15/23 1:24 PM) MPV [6.0-10.0 fL] 12.0 fL *HI* (09/15/23 2:50 PM) UA Mucous [None Seen] None Seen (09/15/23 1:24 PM) UA Spec Grav 1.015 (09/15/23 1:24 PM) Platelets [150-450 K/mcL] 129 K/mcL *LOW* (09/15/23 2:50 PM) CO2 [21-32 mmol/L] 20 mmol/L *LOW* (09/15/23 2:50 PM) Eos Absolute [0.0-0.5 x10^3/mcL] 0.2 x10 ^3/mcL (09/15/23 2:50 PM) Lactic Acid Lvl [0.4-2.0 mmol/L] 0.7 mmo l/L (09/15/23 2:50 PM) UA Squam Epithelial [None Seen] Many *ABN* (09/15/23 1:24 PM) UA pH [5.0-9.0] 5.0 (09/15/23 1:24 PM) UA Appear [Clear] Hazy (09/15/23 1:24 PM) Chloride Level [97-107 mmol/L] 110 mmol/ L *HI* (09/15/23 2:50 PM) RDW-CV [11.5-15.0 %] 11.9 % (09/15/23 2:50 PM) Imm Gran Absolute [0.0-0.1 x10^3/mcL] 0. 0 x10^3/mcL (09/15/23 2:50 PM) Imm Gran Auto 0.2 % *NA* (09/15/23 2:50 PM) NRBC Auto 0.0 % *NA* (09/15/23 2:50 PM) NRBC Absolute [0.0-0.0 x10^3/mcL] 0.0 x1 0^3/mcL (09/15/23 2:50 PM) Slide Review Not Indicated (09/15/23 2:50 PM) UA Culture Ind?. Not Indicated (09/15/23 1:24 PM) Urine Srce Clean Catch (09/15/23 1:24 PM) Urine Volume 12 mL (09/15/23 1:24 PM) Creatinine Level [0.60-1.30 mg/dL] 1.82 mg/dL 1 *HI* (09/15/23 2:50 PM) Troponin-I HS [0-51 ng/L] 4 ng/L (09/15/23 2:50 PM) Anion Gap [5-15 mmol/L] 17 mmol/L *HI* (09/15/23 2:50 PM) Eos, Auto 2.9 % *NA* (09/15/23 2:50 PM) eGFR CKD-EPI 36 mL/min/1.73 m2 *NA* (09/15/23 2:50 PM) UA Yeast [None Seen] None Seen (09/15/23 1:24 PM) CK [21-232 unit/L] 59 unit/L (09/15/23 2:50 PM) SARS-CoV-2 ([facility]) [Negative] Negativ e (09/15/23 3:23 PM) Influenza B virus ([facility]) [Negative] Negative (09/15/23 3:23 PM) Influenza A virus ([facility]) [Negative] Negative (09/15/23 3:23 PM) Respiratory syncytial virus ([facility]) [ Negative] Negative (09/15/23 3:23 PM) Human rhinovirus ([facility]) [Negative] N egative (09/15/23 3:23 PM) 1Interpretive Data: Association of GFR and [...] Oral [35.8-37.3 Deg C] 37.3 Deg C (09/15/23 1:10 PM) Peripheral Pulse Rate [60-100 bpm] 69 bp m (09/15/23 1:10 PM) Respiratory Rate [12-24 br/min] 18 br/mi n (09/15/23 1:10 PM) Blood Pressure [90-140/60-90 mmHg] 140/8 1mmHg (09/15/23 1:10 PM) Mean Arterial Pressure, Cuff [65-140 mmH g] 101 mmHg (09/15/23 1:10 PM) Weight 88 kg (09/15/23 1:10 PM) Weight Dosing 88.000 kg (09/15/23 1:10 PM) Height 157.48 cm (09/15/23 1:10 PM) Body Mass Index 35.48 kg/m2 (09/15/23 1:10 PM) Social History Social History Type Response Tobacco Current everyday tob acco user Tobacco Use:. Sex Patient Care team information Care Team Personnel Name: Jessee Jones AUDIOVISUAL LEAD TECHNICIAN Position: Physician Member Role: Nurse Practitioner Address: Address: [address] [place] [address], [address] Name: Latoya Marquez AUDIOVISUAL LEAD TECHNICIAN Position: Physician Member Role: Nurse Practitioner Address: Address: [address] [place] [address] Name: Leonila Gonzalez AUDIOVISUAL LEAD TECHNICIAN Position: Physician Member Role: Nurse Practitioner Address: Address: [address] [place] [address] Name: Beth Brandt AUDIOVISUAL LEAD TECHNICIAN Position: Physician Member Role: Nurse Practitioner Address: Address: [address] [place] [address] Name: Hermes Ramirez MD Position: Physician Member Role: Informed Provider Address: Address: [address] [place] [address], [address] Name: Pillo Moe AUDIOVISUAL LEAD TECHNICIAN Position: Physician Member Role: Nurse Practitioner Address: Address: [address] [place] [address], [address] [facility] Care Team Related Persons Name: STACIA JONES Address: Home [address] [phone] Name: ROBYN JAMA Name: NAIF CHOI Name: MADY CHEN Name: MADY CHEN
--- OUTSIDE RECORDS SUMMARY | 2024-03-20 11:48 | XMS_ITS | Continuity of Care Document ---
Author Organization [facility] Address [address] [place] [address] Care Team Providers Care Management Retail Intern Name Role Phone Hermes Ramirez Primary Care Physician Encounter RANDY MARILUZ [id number] Date(s): 01/14/24 - 01/14/24 [place] [address] [place] [address]- [place] Encounter Diagnosis Right subscapular pain(Discharge Diagnosis) - 01/14/24 Discharge Disposition: Home or Self Care Attending [...] from: Title:ED Provider Note Author:Car Roach MD Date:01/14/24 Assessment/Plan 1.??Right subscapular pain??M25.511 ??Patient given a dose of morphine 2 mg IM??and Benadryl 50 mg IM I advised the patient to proceed with a scheduled MRI of the right shoulder??and MRI of the knee??as ordered by PCP for further evaluate??persistent knee and shoulder pain after a fall 2 weeks ago Follow-up with PCP and resume all meds ?? Orders: Benadryl, 50 mg = 1 mL, Intramuscular, Once, 0 Refill(s) Benadryl, 50 mg = 1 mL, Intramuscular, Injection, Once, First Dose: 01/14/24 16:00:00 CDT, Stop Date: 01/14/24 16:00:00 CDT, Physician Stop, Routine morphine 2 mg/mL preservative-free injectable solution, 2 mg = 1 mL, Intramuscular, Once, 0 Refill(s) morphine, 2 mg = 1 mL, Intramuscular, Injection, Once, First Dose: 01/14/24 16:00:00 CDT, Stop Date: 01/14/24 16:00:00 CDT, Physician Stop, Routine Discharge Patient, 01/14/24 15:12:00 CDT Patient Discharge Condition Stable Discharge Disposition Discharged to home Patient Education Joint Pain, Bafl-dx-Uoex Follow Up With When Contact Information Hermes Ramirez MD Within [address] [place] [address], [address] [place] [address]- ?? Additional Instructions: Follow-up with PCP with the results of the MRI of the shoulder and any Future Appointments Future Scheduled Tests Radiology* MRI Knee w/o Contrast Right 01/17/24 * MRI Shoulder w/o Contrast Right 01/17/24 * MG Mammo Diagnostic Bilateral w/ Chad [...] Daily, # 30 tab, 11 Refill(s), Pharmacy: [place], [place], 157.48, cm, 01/04/23 15:03:00 CDT, Height/Length Dosing, 81.65, kg, 01/04/23 15:03:00 CDT, Weight Dosing Start Date: 01/11/23 Status: Ordered amoxicillin 875 mg oral tablet 875 mg = 1 tab, Oral, BID, # 14 tab, 0 Refill(s), Pharmacy: [id number]- Telephone, 157.48, cm, 01/01/24 14:49:00 CDT, Height, 87.09, [...] BID, # 120 cap, 2 Refill(s), Pharmacy: [facility]- [place], 157.48, cm, 07/23/23 17:59:00 CDT, Height, [...] BID, # 60 cap, 11 Refill(s), Pharmacy: [place], [place], 157.48, cm, 01/04/23 15:03:00 CDT, Height/Length Dosing, 81.65, kg, 01/04/23 15:03:00 CDT, Weight Dosing Start Date: 01/11/23 Status: Ordered morphine 2 mg = 1 mL, Intramuscular, Injection, Once, First Dose: 01/14/24 4:00:00 PM CDT, Stop Date: 01/14/24 3:25:21 PM CDT, Physician Stop, Routine Start Date: 01/14/24 Stop Date: 01/14/24 Status: Completed morphine 2 mg/mL preservative-free injectable solution 2 mg = 1 mL, Intramuscular, Once, 0 Refill(s) Start Date: 01/14/24 Status: Ordered nicotine 21 mg/24 hr transdermal film, extended release 1 patches, Transdermal, Daily, # 14 patches, 1 Refill(s), [id number], 157.48, cm, 01/01/24 14:49:00 CDT, Height, 87.09, kg, 01/01/24 14:53:00 CDT, Weight Dosing Start Date: 01/01/24 Status: Ordered Nicotrol Inhaler 10 mg inhalation device See Instructions, 6-16 cartriges/day, # 1 EA, 2 Refill(s), [id number], 157.48, cm, 08/29/23 14:22:00 CDT, Height, 88, kg, 08/29/23 14:27:00 CDT, Weight Dosing Start Date: 08/29/23 Status: Ordered pantoprazole 40 mg oral delayed release tablet 1 tab, Oral, Daily, # 90 tab, 0 Refill(s), Pharmacy: [facility], 157.48, cm, 06/07/23 16:07:00 CDT, Height, 89.36, [...] QID, # 360 tab, 0 Refill(s), [facility]acy: [id number], 157.48, cm, 08/29/23 14:22:00 CDT, Height, 88, kg, 08/29/23 14:27:00 CDT, Weight Dosing Start Date: 09/05/23 Status: Ordered venlafaxine 37.5 mg oral capsule, extended release 37.5 mg = 1 cap, Oral, Daily, # 90 cap, 0 Refill(s), Pharmacy: [id number]- [place], 157.48, cm, 09/28/23 18:18:00 CDT, Height, [...] 2 3 Temperature Oral [35.8-37.3 Deg C] 36.2 Deg C (01/14/24 2:55 PM) Peripheral Pulse Rate [60-100 bpm] 84 bpm (01/14/24 3:41 PM) 71 bpm (01/14/24 2:55 PM) Respiratory Rate [12-24 br/min] 18 br/min (01/14/24 3:41 PM) 18 br/min (01/14/24 3:25 PM) 18 br/min (01/14/24 2:55 PM) Blood Pressure [90-120/60-80 mmHg] 136/78mmHg *HI* (01/14/24 3:41 PM) 134/81mmHg *HI* (01/14/24 2:55 PM) Mean Arterial Pressure, Cuff [65-140 mmHg] 99 mmHg (01/14/24 2:55 PM) Weight 83.91 kg (01/14/24 2:55 PM) Weight Dosing 83.910 kg (01/14/24 2:55 PM) Height 157.4 cm (01/14/24 2:55 PM) Body Mass Index 33.87 kg/m2 (01/14/24 2:55 PM) Social History Social History Type Response Tobacco Current everyday tob acco user Tobacco Use:. Sex Sex Representation Female (finding) Hospital Discharge Instructions Patient Education 01/14/2024 15:13:33 Joint Pain, Mtql-iw-Looj Joint Pain Joint pain can be caused by many things. It is likely to go away if you follow instructions from your doctor for taking care of yourself at home. Sometimes, you may need more treatment. Follow these instructions at home: Managing pain, stiffness, and swelling ??? If told, put ice on the painful area. To do this: ??? If you have a removable elastic bandage, sling, or splint, take it off as told by your doctor. ??? Put ice in a plastic bag. ??? Place a towel between your skin and the bag. ??? Leave the ice on for 20 minutes, 2???3 times a day. ??? Take off the ice if your skin turns bright red. This is very important. If you cannot feel pain, heat, or cold, you have a greater risk of damage to the area. ??? Move your fingers or toes below the painful joint often. ??? Raise the painful joint above the level of your heart while you are sitting or lying down. ??? If told, put heat on the painful area. Do this as often as told by your doctor. Use the heat source that your doctor recommends, such as a moist heat pack or a heating pad. ??? Place a towel between your skin and the heat source. ??? Leave the heat on for 20???30 minutes. ??? Take off the heat if your skin gets bright red. This is especially important if you are unable to feel pain, heat, or cold. You may have a greater risk of getting burned. Activity ??? Rest the painful joint for as long as told by your doctor. Do not do things that cause pain or make your pain worse. ??? Begin exercising or stretching the affected area, as told by your doctor. Ask your doctor what types of exercise are safe for you. ??? Return to your normal activities when your doctor says that it is safe. If you have an elastic bandage, sling, or splint: ??? Wear it as told by your doctor. Take it only as told by your doctor. ??? Loosen it your fingers or toes below the joint: ??? Tingle. ??? Become numb. ??? Get cold and blue. ??? Keep it clean. ??? Ask your doctor if you should take it off before bathing. ??? If it is not waterproof: ??? Do not let it get wet. ??? Cover it with a watertight covering when you take a bath or shower. General instructions ??? Take tqyp-sxz-rvnwxmd and prescription medicines only as told by your doctor. This may include medicines taken by mouth or applied to the skin. ??? Do not smoke or use any products that contain nicotine or tobacco. If you need help quitting, ask your doctor. ??? Keep all follow-up visits as told by your doctor. This is important. Contact a doctor if: ??? You have pain that gets worse and does not get better with medicine. ??? Your joint pain does not get better in 3 days. ??? You have more bruising or swelling. ??? You have a fever. ??? You lose 10 lb (4.5 kg) or more without trying. Get help right away if: ??? You cannot move the joint. ??? Your fingers or toes tingle, become numb. or get cold and blue. ??? You have a fever along with a joint that is red, warm, and swollen. Summary ??? Joint pain can be caused by many things. It often goes away if you follow instructions from your doctor for taking care of yourself at home. ??? Rest the painful joint for as long as told. Do not do things that cause pain or make your pain worse. ??? Take vick-keb-kmhyvxe and prescription medicines only as told by your doctor. This information is not intended to replace advice given to you by your health care provider. Make sure you discuss any questions you have with your health care provider. Document Revised: 06/17/2020 Document Reviewed: 06/17/2020 [employer] Patient Education ?? 2022 [employer]shmi. Follow Up Care 01/14/2024 14:42:59 With:Hermes Ramirez MD Address: [address] [place] [address] [place], [place] [address]- When:1 week Comments:Follow-up with PCP with the results of the MRI of the shoulder and any Physician Emergency department Note * Felicia Roach MD: PERFORM Event Display: ED Note Physician Authored Date: [id number] MISHA JACKSON :1980 Age:43 years Sex:Female Visit Date:01/14/2024 Primary Care Physician: Hermes Ramirez MD Basic Information Time Seen: Felicia Roach MD / 01/14/2024 15:07 Chief Complaint Pt was here early this morning for same pain. Complains of right shoulder blade pain radiating to right chest and back. Took tylenol 1000 mg and muscle relaxor at 1200 noon with no relief. 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 She has already been seen and evaluated by PCP and is scheduled to have??an MRI of the right shoulder??and MRI of the knee next week because of the persistent pain. ??Previous x-rays have been negative.?? She was seen in our ER??about 12 hours ago for exactly the same thing and received morphine and Benadryl.?? She frequents the ER for??pain medications.?? Review of records reveal this is her sixth ER visit just this month alone Review of Systems: Constitutional:?No??fevers,?No??chills,?No??sweats Eye:?No??recent visual problems ENT:?No??ear pain,?No??nasal congestion,?No??sore throat Respiratory:?No??shortness of breath,?No??cough Cardiovascular:?No??Chest pain,?No??palpitations,?No??syncope Gastrointestinal:?Nonausea,?No??vomiting,?No??diarrhea Genitourinary:?No??hematuria Clemente/Lymph:?No??bruising tendency,?No??swollen lymph glands Endocrine:?No??excessive thirst,??No??excessive hunger Musculoskeletal:??No??back pain,??No??neck pain,??Positive for??joint pain,??Positive for??muscle pain,??Positive for??decreased range of motion Integumentary:?No??rash,?No??pruritus,?No??abrasions Neurologic: Alert & oriented X 4 Psychiatric:?No??anxiety,?No??depression Physical Exam Vitals & Measurements T:??36.2?C ??(Oral)?? HR:??71??(Peripheral)?? RR:??18?? BP:??134/81?? SpO2:??99%?? HT:??157.4??cm?? WT:??83.91??kg?? BMI:??33.87?? O2 Therapy:??Room air?? General: Alert and oriented, well nourished,?No??acute distress??blood pressure 134/81.?? Satting 99% room air. ??She is afebrile Eye: PERRL, EOMI,?Normal?conjunctiva HENT: Normocephalic, clear tympanic membranes,?Normal? hearing, moist oral mucosa,?No??scleral icterus,?No??sinus tenderness Neck: Supple, non-tender,?No??carotid bruits,?No??JVD,?No??lymphadenopathy Lungs:??Clear to auscultation?? Respiration:??Non-Labored Heart:?Normal? rate,?Regular??rhythm,?No??murmur,?No??gallop,?No??edema Breast:?No??lumps,?No??bumps,?No??scars,?Normal? nipples. ??Some tenderness on the right scapular area with full range of motion of the shoulder Abdomen: Soft, non-tender, non-distended,?Normal? bowel sounds,?No??masses Musculoskeletal:?Normal? range of motion and strength,?No??tenderness,?No??swelling Skin: Skin is warm, dry and pink,?No??rashes,?No??lesions Neurologic: Awake, alert and oriented X4, CN II-XII intact Psychiatric: Cooperative, appropriate mood and affect Medical Decision Making: Recurrent right shoulder pain for the past 2 weeks since the fall She has already been seen??and evaluated with PCP and x-rays were negative??and she is scheduled for an MRI of the shoulder and the knee next week Procedure No Qualifying Data Assessment/Plan 1.??Right subscapular pain??M25.511 ??Patient given a dose of morphine 2 mg IM??and Benadryl 50 mg IM I advised the patient to proceed with a scheduled MRI of the right shoulder??and MRI of the knee??as ordered by PCP for further evaluate??persistent knee and shoulder pain after a fall 2 weeks ago Follow-up with PCP and resume all meds Orders: Benadryl, 50 mg = 1 mL, Intramuscular, Once, 0 Refill(s) Benadryl, 50 mg = 1 mL, Intramuscular, Injection, Once, First Dose: 01/14/24 16:00:00 CDT, Stop Date: 01/14/24 16:00:00 CDT, Physician Stop, Routine morphine 2 mg/mL preservative-free injectable solution, 2 mg = 1 mL, Intramuscular, Once, 0 Refill(s) morphine, 2 mg = 1 mL, Intramuscular, Injection, Once, First Dose: 01/14/24 16:00:00 CDT, Stop Date: 01/14/24 16:00:00 CDT, Physician Stop, Routine Discharge Patient, 01/14/24 15:12:00 CDT Patient Discharge Condition Stable Discharge Disposition Discharged to home Patient Education Joint Pain, Tfgj-ta-Dkak Follow Up With When Contact Information Hermes Ramirez MD Within 1 week [address] [facility], [address] [place] [address]- Additional Instructions: Follow-up with PCP with the results of the MRI of the shoulder and any Medication Reconciliation New Prescription diphenhydrAMINE (Benadryl)50 Milligrams Intramuscular (in a muscle) once. ?? morphine (morphine 2 mg/mL preservative-free injectable solution)1 Milliliters Intramuscular (in a muscle) once. ?? Unchanged amLODIPine (amLODIPine 5 mg oral [...] Mother. Attending Attestation Stable Electronically Signed on 01/14/2024 15:18 CDT Felicia Roach MD Patient Care team information Care Team Personnel Name: Jessee Jones STEWARDESSES TEACHER Position: Physician Member Role: Nurse Practitioner Address: [address] [facility], [address] [place] [address]- Name: Latoya Marquez STEWARDESSES TEACHER Position: Physician Member Role: Nurse Practitioner Address: [address] [place] [address]- Name: Leonila Gonzalez STEWARDESSES TEACHER Position: Physician Member Role: Nurse Practitioner Address: [address] Name: Beth Brandt STEWARDESSES TEACHER Position: Physician Member Role: Nurse Practitioner Address: [address] [place] [address] [place] [address] Name: Hermes Ramirez MD Position: Physician Member Role: Informed Provider Address: [address] [facility], [address] [place] [address]- Name: Pillo Moe NP Position: Physician Member Role: Nurse Practitioner Address: [address] [facility], [address] [facility] Care Team Related Persons Name: STACIA JONES Name: ROBYN JAMA Name: NAIF CHOI Name: MADY CHEN Name: MADY CHEN Insurance Providers Guarantor name: MISHA JACKSON Health Plan Information #: 2 Payer: [employer] APPROVED Member Number: [id number] Policy Number: NA Health Plan Information #: 1 Payer: BLUE CROSS MEDICAID MGD CARE Member Number: [id number] Policy Number: Health Plan Information #: 3 Payer: MISC Workers Comp Member Number: NA Policy Number: NA
--- OUTSIDE RECORDS SUMMARY | 2024-03-20 11:48 | XMS_ITS | Continuity of Care Document ---
Author Organization [facility] Address [address] [place] [address] Care Team Providers Care Applier Name Role Phone Hermes Ramirez Primary Care Physician Encounter ONOFRE MCGRAW [id number] Date(s): 01/12/23 - 01/12/23 [facility] [address] [place] [address] us Encounter Diagnosis Acute migraine(Discharge Diagnosis) - 01/12/23 Family history of liver transplant(Discharge Diagnosis) - 01/12/23 History of kidney transplant(Discharge Diagnosis) - 01/12/23 Immunosuppression(Discharge Diagnosis) - 01/12/23 Discharge Disposition: Home or Self Care Attending [...] Daily, # 30 tab, 11 Refill(s), Pharmacy: [place], [place], 157.48, cm, 01/04/23 15:03:00 CDT, Height/Length [...] BID, # 60 cap, 11 Refill(s), Pharmacy: [place], [place], 157.48, cm, 01/04/23 15:03:00 CDT, Height/Length [...] [35.8-37.3 Deg C] 37 De g C (01/12/23 8:06 AM) Peripheral Pulse Rate [60-100 bpm] 87 bp m (01/12/23 11:48 AM) 92 bpm (01/12/23 8:06 AM) Respiratory Rate [12-24 br/min] 18 br/mi n (01/12/23 8:06 AM) Blood Pressure [90-140/60-90 mmHg] 168/1 04mmHg *HI* (01/12/23 11:48 AM) 177/99mmHg *HI* (01/12/23 8:06 AM) Mean Arterial Pressure, Cuff [65-140 mmH g] 125 mmHg (01/12/23 8:06 AM) Weight 90.54 kg (01/12/23 8:06 AM) Weight Dosing 90.54 kg (01/12/23 8:16 AM) Height 157.480 cm (01/12/23 8:06 AM) Height/Length Dosing 157.480 cm (01/12/23 8:16 AM) Body Mass Index 37.000 kg/m2 (01/12/23 8:06 AM) Social History Social History Type Response Tobacco Current everyday tob acco user Tobacco Use:. Sex Hospital Discharge Instructions Patient Education 01/12/2023 08:50:48 Migraine Headache, Qokt-iq-Mtbf Migraine Headache A migraine headache is a [...] these instructions at home: Medicines ??? Take nvmp-vgn-foqwrex and prescription medicines only as told by your doctor. ??? Ask your doctor if the medicine prescribed to you: ??? Requires you to avoid driving or using heavy machinery. ??? Can cause trouble pooping (constipation). You may need to take these steps to prevent or treat trouble pooping: ??? Drink enough fluid to keep your pee (urine) pale yellow. ??? Take puue-phz-ebqdfqg or prescription medicines. ??? Eat foods that [...] provider. Document Revised: 06/28/2019 Document Reviewed: 04/18/2019 [employer] Patient Education ?? 2022 [employer]. Follow Up Care 01/12/2023 08:06:33 With:1. Ensure adequate oral hydration 2. Ensure adequate sleep 3. Continue current medications as prescribed 4. Return if not improving Address:Unknown When:1 month Patient Care team information Care Team Personnel Name: Jessee Jones PIGMENT PROCESSOR Position: Physician Member Role: Nurse Practitioner Address: Address: [address] [place] [address], [address] [place] [address]- Name: Latoya Marquez PIGMENT PROCESSOR Position: Physician Member Role: Nurse Practitioner Address: Address: [address] [place] [address]- Name: Leonila Gonzalez PIGMENT PROCESSOR Position: Physician Member Role: Nurse Practitioner Address: Address: [address] [place] [address]- Name: Beth Brandt PIGMENT PROCESSOR Position: Physician Member Role: Nurse Practitioner Address: Address: [address] [place] [address] Name: Hermes Ramirez MD Position: Physician Member Role: Primary Care Physician Address: Address: [address] [place] [address], [facility] [address] [place] [address]- Name: Anamika Gore MD Position: Physician - Women's Health Member Role: Informed Provider Name: Pillo Moe PIGMENT PROCESSOR Position: Physician Member Role: Nurse Practitioner Address: Address: [address] [place] [address], [address] [facility] Name: Gia Underwood RN Position: Nurse Member Role: ED Nurse Name: Percy Salazar MD Position: Physician Member Role: Admitting Physician Name: Jesus Khan MD Position: Physician Member Role: ED Physician Address: Address: [address] [place] [address] [place] [address]- Care Team Related Persons Name: STACIA JONES Address: Home [address] [place] [phone] Name: ROBYN JAMA
--- OUTSIDE RECORDS SUMMARY | 2024-03-20 11:48 | XMS_ITS | Continuity of Care Document ---
Author Organization [facility] Address [address] [place] [address] Care Team Providers Care Electronics Teacher Name Role Phone Ashley Hermes Chris Primary Care Physician Encounter [facility] [id number] Date(s): 03/22/22 - 03/22/22 [place] [address] 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, Weight Dosing Start Date: 02/13/22 Status: Ordered morphine 4 mg/mL preservative-free injectable solution 4 mg = 1 mL, IM, Once, 0 Refill(s) Start Date: 03/19/22 Status: Ordered oseltamivir 30 mg oral capsule 30 mg = 1 cap, Oral, BID, # 10 cap, 0 Refill(s), Pharmacy: [place], [place], 157.[address], cm, 03/16/22 18:01:00 MAINTENANCE WORKER SWIMMING POOL, Height/Length Dosing, 77.11, kg, 03/16/22 18:01:00 MAINTENANCE WORKER SWIMMING POOL, Weight Dosing Start Date: 03/16/22 Status: Ordered [...] nausea/vomiting, # 20 tab, 0 Refill(s), Pharmacy: [place], [place], [address], cm, 09/29/21 23:03:00 CDT, Height/Length [...] (Accula) from Swab collected on 16-MAR-2022 17:54:00 MAINTENANCE WORKER SWIMMING POOL tested positive for COVID-19. Procedures Procedure Date Related Diagnosis Body Site Status Bladder washout 12/14/20 Completed Kidney transplant 05/13/20 Complet ed Tx - Liver transplantation 05/08/20 Completed delivery Complet ed cyst removal from breast Completed Hernia Completed liver transplant Complete d Results Laboratory List Name Date Lipid Panel 03/22/22 Automated Diff 03/22/22 CBC w/ Diff 03/22/22 Cholesterol Total 03/22/22 Comprehensive Metabolic Panel 03/22/22 GGT 03/22/22 Lactate Dehydrogenase 03/22/22 Magnesium Level 03/22/22 Phosphorus Level 03/22/22 Uric Acid 03/22/22 Most recent to oldest [Reference Range]: 1 2 WBC [4.0-11.5 K/mcL] 5.7 K/mcL (03/22/22 3:05 AM) RBC [4.20-5.40 x10^6/mcL] 3.89 x10^6/mcL *LOW* (03/22/22 3:05 AM) Neutro Auto 59.0 % *NA* (03/22/22 3:05 AM) Lymph Auto 27.6 % *NA* (03/22/22 3:05 AM) [place] Auto 7.7 % *NA* (03/22/22 3:05 AM) Basophil Auto 0.2 % *NA* (03/22/22 3:05 AM) BUN [7-18 mg/dL] 28 mg/dL *HI* (03/22/22 3:05 AM) Cholesterol Total [100-199 mg/dL] 166 mg /dL (03/22/22 5:04 PM) 162 mg/dL (03/22/22 3:05 AM) LDL [<=99 mg/dL] 92 mg/dL (03/22/22 5:04 PM) Glucose Level [70-110 mg/dL] 114 mg/dL *HI* (03/22/22 3:05 AM) Potassium Level [3.5-5.1 mmol/L] 3.7 mmo l/L (03/22/22 3:05 AM) Baso Absolute [0.0-0.1 x10^3/mcL] 0.0 x1 0^3/mcL (03/22/22 3:05 AM) MCV [78.0-100.0 fL] 96.4 fL (03/22/22 3:05 AM) HDL [40-59 mg/dL] 55 mg/dL (03/22/22 5:04 PM) AST [15-37 unit/L] 15 unit/L (03/22/22 3:05 AM) ALT [12-78 unit/L] 20 unit/L (03/22/22 3:05 AM) MCHC [29.0-37.5 g/dL] 34.7 g/dL (03/22/22 3:05 AM) Sodium Level [136-145 mmol/L] 140 mmol/L (03/22/22 3:05 AM) Lymph Absolute [0.8-5.8 x10^3/mcL] 1.6 x 10^3/mcL (03/22/22 3:05 AM) Hct [36.0-48.0 %] 37.5 % (03/22/22 3:05 AM) Triglycerides [20-149 mg/dL] 95 mg/dL (03/22/22 5:04 PM) Calcium Level [8.5-10.1 mg/dL] 8.5 mg/dL (03/22/22 3:05 AM) Marinette Absolute [0.1-1.5 x10^3/mcL] 0.4 x1 0^3/mcL (03/22/22 3:05 AM) Phosphorus Level [2.6-4.7 mg/dL] 3.7 mg/ dL (03/22/22 3:05 AM) Albumin Level [3.4-5.0 g/dL] 3.0 g/dL *LOW* (03/22/22 3:05 AM) Protein Total [6.4-8.2 g/dL] 6.2 g/dL *LOW* (03/22/22 3:05 AM) MCH [27.0-34.0 pg] 33.4 pg (03/22/22 3:05 AM) Magnesium Level [1.8-2.4 mg/dL] 1.5 mg/d L *LOW* (03/22/22 3:05 AM) Neutro Absolute [1.5-8.1 x10^3/mcL] 3.4 x10^3/mcL (03/22/22 3:05 AM) Bilirubin Total [0.0-1.0 mg/dL] 0.4 mg/d L (03/22/22 3:05 AM) Hgb [12.0-16.0 g/dL] 13.0 g/dL (03/22/22 3:05 AM) Uric Acid [2.6-7.2 mg/dL] 5.8 mg/dL (03/22/22 3:05 AM) Alk Phos [46-130 unit/L] 194 unit/L *HI* (03/22/22 3:05 AM) LDH [100-190 unit/L] 141 unit/L (03/22/22 3:05 AM) MPV [6.0-10.0 fL] 10.1 fL *HI* (03/22/22 3:05 AM) Platelets [150-450 K/mcL] 106 K/mcL *LOW* (03/22/22 3:05 AM) CO2 [21-32 mmol/L] 21 mmol/L (03/22/22 3:05 AM) Eos Absolute [0.0-0.5 x10^3/mcL] 0.3 x10 ^3/mcL (03/22/22 3:05 AM) GGT [5-55 unit/L] 172 unit/L *HI* (03/22/22 3:05 AM) eGFR Non-AA 38 *NA* (03/22/22 3:05 AM) eGFR AA 45 *NA* (03/22/22 3:05 AM) Chloride Level [97-107 mmol/L] 112 mmol/ L *HI* (03/22/22 3:05 AM) RDW-CV [11.5-15.0 %] 13.1 % (03/22/22 3:05 AM) VLDL [5-40 mg/dL] 19 mg/dL (03/22/22 5:04 PM) Imm Gran Absolute [0.0-0.1 x10^3/mcL] 0. 0 x10^3/mcL (03/22/22 3:05 AM) Imm Gran Auto 0.4 % *NA* (03/22/22 3:05 AM) NRBC Auto 0.0 % *NA* (03/22/22 3:05 AM) NRBC Absolute [0.0-0.0 x10^3/mcL] 0.0 x1 0^3/mcL (03/22/22 3:05 AM) LDL/HDL Ratio [0.0-3.6 ratio] 1.7 ratio (03/22/22 5:04 PM) Creatinine Level [0.60-1.30 mg/dL] 1.62 mg/dL *HI* (03/22/22 3:05 AM) Anion Gap [5-15 mmol/L] 11 mmol/L (03/22/22 3:05 AM) Eos, Auto 5.1 % *NA* (03/22/22 3:05 AM) Social History Social History Type Response Smoking Status 5-9 cigarettes (betw een 1/4 to 1/2 pack)/day in last 30 days entered on: 05/12/21 Sex Patient Care team information Personnel Name: Hermes Ramirez MD Address: Address: [address] [place] [address], [address] [place] [address]
--- OUTSIDE RECORDS SUMMARY | 2024-03-20 11:48 | XMS_ITS | Continuity of Care Document ---
Author Organization [facility] Address [address] [place] [address] Care Team Providers Care Tracing Lathe Set Up Operator Name Role Phone Sophiejenna Hermes Perez Primary Care Physician [phone] Encounter ONOFRE MCGRAW [id number] Date(s): 06/22/21 - 06/22/[address] [address]- [place] Discharge Disposition: Home or [...] Pending * Tacrolimus (FK506), Blood LC/MS LC 06/22/21 Future Scheduled Tests Radiology* MRI Spine Cervical [...] BID, # 180 tab, 3 Refill(s), Pharmacy: [place], [place], [address], cm, 10/22/20 21:26:00 CDT, Height/Length [...] Results Laboratory List Name Date Automated Diff 06/22/21 CBC w/ Diff 06/22/21 Cholesterol Total 06/22/21 Comprehensive Metabolic Panel 06/22/21 GGT 06/22/21 Lactate Dehydrogenase 06/22/21 Magnesium Level 06/22/21 Phosphorus Level 06/22/21 Uric Acid 06/22/21 Most recent to oldest [Reference Range]: 1 WBC [4.0-11.5 K/mcL] 7.6 K/mcL (06/22/21 8:17 AM) RBC [4.20-5.40 x10^6/mcL] 4.40 x10^6/mcL (06/22/21 8:17 AM) Neutro Auto 71.0 % *NA* (06/22/21 8:17 AM) Lymph Auto 18.0 % *NA* (06/22/21 8:17 AM) [place] Auto 6.8 % *NA* (06/22/21 8:17 AM) Basophil Auto 0.1 % *NA* (06/22/21 8:17 AM) BUN [7-18 mg/dL] 25 mg/dL *HI* (06/22/21 8:17 AM) Cholesterol Total [100-199 mg/dL] 166 mg /dL (06/22/21 8:17 AM) Glucose Level [70-110 mg/dL] 97 mg/dL (06/22/21 8:17 AM) Potassium Level [3.5-5.1 mmol/L] 3.6 mmo l/L (06/22/21 8:17 AM) Baso Absolute [0.0-0.1 x10^3/mcL] 0.0 x1 0^3/mcL (06/22/21 8:17 AM) MCV [78.0-100.0 fL] 95.7 fL (06/22/21 8:17 AM) AST [15-37 unit/L] 17 unit/L (06/22/21 8:17 AM) ALT [12-78 unit/L] 20 unit/L (06/22/21 8:17 AM) MCHC [29.0-37.5 g/dL] 34.9 g/dL (06/22/21 8:17 AM) Sodium Level [136-145 mmol/L] 140 mmol/L (06/22/21 8:17 AM) Lymph Absolute [0.8-5.8 x10^3/mcL] 1.4 x 10^3/mcL (06/22/21 8:17 AM) Hct [36.0-48.0 %] 42.1 % (06/22/21 8:17 AM) Calcium Level [8.5-10.1 mg/dL] 8.8 mg/dL (06/22/21 8:17 AM) [place] Absolute [0.1-1.5 x10^3/mcL] 0.5 x1 0^3/mcL (06/22/21 8:17 AM) Phosphorus Level [2.6-4.7 mg/dL] 2.9 mg/ dL (06/22/21 8:17 AM) Albumin Level [3.4-5.0 g/dL] 3.7 g/dL (06/22/21 8:17 AM) Protein Total [6.4-8.2 g/dL] 7.2 g/dL (06/22/21 8:17 AM) MCH [27.0-34.0 pg] 33.4 pg (06/22/21 8:17 AM) Magnesium Level [1.8-2.4 mg/dL] 1.8 mg/d L (06/22/21 8:17 AM) Neutro Absolute [1.5-8.1 x10^3/mcL] 5.4 x10^3/mcL (06/22/21 8:17 AM) Bilirubin Total [0.0-1.0 mg/dL] 0.4 mg/d L (06/22/21 8:17 AM) Hgb [12.0-16.0 g/dL] 14.7 g/dL (06/22/21 8:17 AM) Uric Acid [2.6-7.2 mg/dL] 7.2 mg/dL (06/22/21 8:17 AM) Alk Phos [46-130 unit/L] 196 unit/L *HI* (06/22/21 8:17 AM) LDH [100-190 unit/L] 151 unit/L (06/22/21 8:17 AM) MPV [6.0-10.0 fL] 10.5 fL *HI* (06/22/21 8:17 AM) Platelets [150-450 K/mcL] 127 K/mcL *LOW* (06/22/21 8:17 AM) CO2 [21-32 mmol/L] 22 mmol/L (06/22/21 8:17 AM) Eos Absolute [0.0-0.5 x10^3/mcL] 0.3 x10 ^3/mcL (06/22/21 8:17 AM) GGT [5-55 unit/L] 128 unit/L *HI* (06/22/21 8:17 AM) eGFR Non-AA 39 *NA* (06/22/21 8:17 AM) eGFR AA 47 *NA* (06/22/21 8:17 AM) Chloride Level [97-107 mmol/L] 108 mmol/ L *HI* (06/22/21 8:17 AM) RDW-CV [11.5-15.0 %] 12.6 % (06/22/21 8:17 AM) Imm Gran Absolute [0.0-0.1 x10^3/mcL] 0. 0 x10^3/mcL (06/22/21 8:17 AM) Imm Gran Auto 0.3 % *NA* (06/22/21 8:17 AM) NRBC Auto 0.0 % *NA* (06/22/21 8:17 AM) NRBC Absolute [0.0-0.0 x10^3/mcL] 0.0 x1 0^3/mcL (06/22/21 8:17 AM) Creatinine Level [0.60-1.30 mg/dL] 1.58 mg/dL *HI* (06/22/21 8:17 AM) Anion Gap [5-15 mmol/L] 14 mmol/L (06/22/21 8:17 AM) Eos, Auto 3.8 % *NA* (06/22/21 8:17 AM) Social History Social History Type Response Smoking Status 5-9 cigarettes (betw een 1/4 to 1/2 pack)/day in last 30 days entered on: 05/12/21 Sex Care Team Personnel Name: Hermes Ramirez MD Address: [address] [place] [address], [address]
--- OUTSIDE RECORDS SUMMARY | 2024-03-20 11:48 | XMS_ITS | Continuity of Care Document ---
Author Organization [facility] Address [address] [place] [address] Care Team Providers Care Police Crime Scene Technician Name Role Phone Ashley Hermes Chris Primary Care Physician Encounter [facility] [id number] Date(s): 12/26/21 - 12/26/[address] [address] Encounter Diagnosis Otitis externa, fungal(Discharge Diagnosis) - 12/26/21 Otitis externa in other diseases classified elsewhere, unspecified ear(Discharge Diagnosis) - 12/26/21 Discharge Disposition: Home or Self Care Attending [...] wheezing, # 6.7 g, 0 Refill(s), Pharmacy: [facility] [place], [place], 73, cm, 09/13/21 23:53:00 CDT, Height/Length [...] needed, # 12 cap, 0 Refill(s), Pharmacy: [place], [place], 157, cm, 11/04/21 20:02:00 CDT, [...] BID, # 180 tab, 3 Refill(s), Pharmacy: [place], [place], 157, cm, 10/22/20 21:26:00 CDT, Height/Length Dosing, 74, kg, 10/22/20 21:26:00 CDT, Weight Dosing Start Date: 12/18/20 Status: Ordered ondansetron 4 mg oral tablet, disintegrating 4 mg = 1 tab, Oral, every 6 hr, PRN nausea/vomiting, # 12 tab, 0 Refill(s), Pharmacy: [place], [place], [address], cm, 11/04/21 20:02:00 CDT, [...] nausea/vomiting, # 20 tab, 0 Refill(s), Pharmacy: [place], [place], 157, cm, 09/29/21 23:03:00 CDT, [...] Oral [35.8-37.3 Deg C] 37.2 Deg C (12/26/21 9:08 PM) Peripheral Pulse Rate [60-100 bpm] 108 b pm *HI* (12/26/21 9:08 PM) Respiratory Rate [12-24 br/min] 18 br/mi n (12/26/21 9:08 PM) Blood Pressure [90-140/60-90 mmHg] 130/8 1mmHg (12/26/21 9:08 PM) Weight 73.00 kg (12/26/21 9:08 PM) Weight Dosing 73.00 kg (12/26/21 9:23 PM) Height 157.000 cm (12/26/21 9:08 PM) Height/Length Dosing 157.000 cm (12/26/21 9:23 PM) Social History Social History Type Response Tobacco Current some day tob acco user Tobacco Use:. Sex Hospital Discharge Instructions Follow Up Care 12/26/2021 21:08:41 With:Hermes Ramirez MD Address: [address] [place] [address], [address] [place] [address]- When:1 month Patient Care team information Personnel Name: Hermes Ramirez MD Address: Address: [address] [place] [address], [address] [place] [address]
--- OUTSIDE RECORDS SUMMARY | 2024-03-20 11:48 | XMS_ITS | Continuity of Care Document ---
Author Organization [facility] Address [address] [place] [address] Care Team Providers Care Dining Room Tables Set Up Attendant Name Role Phone Hermes Ramirez Primary Care Physician [phone] Encounter ONOFRE [facility]CGRAW [id number] Date(s): 04/05/21 - 04/05/[address] [address]- [place] Discharge Disposition: Home or Self Care Attending Physician: Hermse Ramirez MD Admitting Physician: Hermes Ramirez MD [...] BID, # 180 tab, 3 Refill(s), Pharmacy: [place], [place], [address], cm, 10/22/20 21:26:00 CDT, Height/Length [...] Oral [35.8-37.3 Deg C] 36.8 Deg C (04/05/21 4:47 PM) 37.1 Deg C (04/05/21 1:53 PM) Peripheral Pulse Rate [60-100 bpm] 101 b pm *HI* (04/05/21 4:47 PM) 100 bpm (04/05/21 1:53 PM) Respiratory Rate [12-24 br/min] 20 br/mi n (04/05/21 4:47 PM) 20 br/min (04/05/21 1:53 PM) Blood Pressure [90-140/60-90 mmHg] 142/9 3mmHg *HI* (04/05/21 4:47 PM) 140/96mmHg (04/05/21 1:53 PM) Social History Social History Type Response Smoking Status 5-9 cigarettes (betw een 1/4 to 1/2 pack)/day in last 30 days entered on: 04/01/21 Sex
--- OUTSIDE RECORDS SUMMARY | 2024-03-20 11:48 | XMS_ITS | Continuity of Care Document ---
Author Organization [facility] Address [address] [place] [address] Care Team Providers Care Counselor Supervisor Name Role Phone Hermes Ramirez Primary Care Physician [phone] Encounter ONOFRE MARILUZ [id number] Date(s): 03/29/21 - 03/29/[address] [address] Encounter Diagnosis Migraine headache(Discharge Diagnosis) - 03/29/21 Discharge Disposition: Home or Self Care Attending [...] * Sedimentation Rate (ESR) 03/24/21 Functional Status 03/29/21 Recent Travel History No recent travel Other [...] BID, # 180 tab, 3 Refill(s), Pharmacy: [place], [place], 157, cm, 10/22/20 21:26:00 CDT, Height/Length [...] bedtime, # 45 g, 2 Refill(s), Pharmacy: [place], [place], 157.[address], cm, 08/18/20 12:26:00 CDT, Height/Length [...] Oral [35.8-37.3 Deg C] 36.9 Deg C (03/29/21 1:28 PM) Peripheral Pulse Rate [60-100 bpm] 88 bp m (03/29/21 2:30 PM) 112 bpm *HI* (03/29/21 1:28 PM) Respiratory Rate [12-24 br/min] 20 br/mi n (03/29/21 2:30 PM) 18 br/min (03/29/21 1:28 PM) Blood Pressure [90-140/60-90 mmHg] 145/8 2mmHg *HI* (03/29/21 2:30 PM) 159/92mmHg *HI* (03/29/21 1:28 PM) Weight Dosing 77.11 kg (03/29/21 1:41 PM) Weight Estimated 77.11 kg (03/29/21 1:28 PM) Height/Length Dosing 157.480 cm (03/29/21 1:41 PM) Body Mass Index Estimated 31 (03/29/21 1:28 PM) Height/Length Estimated 157.480 cm (03/29/21 1:28 PM) Social History Social History Type Response Smoking Status 5-9 cigarettes (betw een 4 to 1/2 pack)/day in last 30 days entered on: 08/18/20 Sex Hospital Discharge Instructions Patient Education 03/29/2021 14:09:23 Migraine Headache Migraine Headache A migraine headache [...] these instructions at home: Medicines ??? Take [id number] and prescription medicines only as told by your health care provider. ??? Ask your health care provider if the medicine prescribed to you: ??? Requires you to avoid driving or using heavy machinery. ??? Can cause constipation. You may need to take these actions to prevent or treat constipation: ??? Drink enough fluid to keep your urine pale yellow. ??? Take [id number]-bokilfi or prescription medicines. ??? Eat foods that [...] Reviewed: 04/18/2019 Else[employer] Patient Education ?? 2020 [employer] Follow Up Care 03/29/2021 13:28:50 With:Follow up with specialist Address: When: Unknown Comments:Keep your previously scheduled appointment with the neurologist for tomorrow.
--- OUTSIDE RECORDS SUMMARY | 2024-03-20 11:48 | XMS_ITS | Continuity of Care Document ---
Author Organization [facility] Address [address] [place] [address] Care Team Providers Care Production Maintenance Mechanic Name Role Phone Hermes Ramirez Primary Care Physician Encounter [facility] [id number] Date(s): 04/06/23 - 04/06/[address] [address] [place] Discharge Disposition: Left Against Medical Advice [...] Appointments Diagnostic Tests Pending * Urine Culture 04/06/23 Future Scheduled Tests Laboratory* Giardia lamblia Ag, [...] Daily, # 30 tab, 11 Refill(s), Pharmacy: [place], [place], [address], cm, 01/04/23 15:03:00 CDT, Height/Length Dosing, 81.65, kg, 01/04/23 15:03:00 CDT, Weight Dosing Start Date: 01/11/23 Status: Ordered aspirin 81 mg oral delayed release tablet 81 mg = 1 tab, Oral, Daily, # 30 tab, 0 Refill(s) Start Date: 04/05/21 Status: Ordered Bactrim DS 800 mg-160 mg oral tablet 1 tab, Oral, BID, # 10 tab, 0 Refill(s), Pharmacy: [place], [place], [address], cm, 04/06/23 14:44:00 CAKE ICER, Height, 85.28, kg, 04/06/23 14:48:00 CAKE ICER, Weight Dosing Start Date: 04/06/23 Stop Date: [...] BID, # 60 cap, 11 Refill(s), Pharmacy: [place], [place], [address], cm, 01/04/23 15:03:00 CDT, Height/Length [...] Results Laboratory List Name Date .Urine Volume 04/06/23 Urinalysis Microscopic 04/06/23 Urinalysis with Microscopic 04/06/23 Most recent to oldest [Reference Range]: 1 UA Color Yellow (04/06/23 4:37 PM) UA WBC [0-5] 51-60 *ABN* (04/06/23 4:37 PM) UA Urobilinogen [Normal mg/dL] Normal mg /dL (04/06/23 4:37 PM) UA Bili [Negative mg/dL] Negative mg/dL (04/06/23 4:37 PM) UA Ketones [Negative mg/dL] 15 mg/dL *ABN* (04/06/23 4:37 PM) UA RBC [0-3] 3-5 *ABN* (04/06/23 4:37 PM) UA Leuk Est [Negative Guille/mcL] 75 Guille/mc L *ABN* (04/06/23 4:37 PM) UA Nitrite [Negative] Negative (04/06/23 4:37 PM) UA Glucose [Normal mg/dL] Normal mg/dL (04/06/23 4:37 PM) UA Bacteria [None Seen] Many *ABN* (04/06/23 4:37 PM) UA Protein [Negative mg/dL] Trace mg/dL *ABN* (04/06/23 4:37 PM) UA Blood [Negative Rocael/mcL] 50 Rocael/mcL *ABN* (04/06/23 4:37 PM) UA Mucous [None Seen] Few (04/06/23 4:37 PM) UA Spec Grav 1.005 (04/06/23 4:37 PM) UA Squam Epithelial [None Seen] Moderate *ABN* (04/06/23 4:37 PM) UA pH [5.0-9.0] 5.0 (04/06/23 4:37 PM) UA Appear [Clear] Hazy (04/06/23 4:37 PM) UA Culture Ind?. N/A *NA* (04/06/23 4:37 PM) Urine Srce Clean Catch (04/06/23 4:37 PM) Urine Volume 12 mL (04/06/23 4:37 PM) UA Yeast [None Seen] None Seen (04/06/23 4:37 PM) Vital Signs Most recent to oldest [Reference Range]: 1 Temperature Oral [35.8-37.3 Deg C] 37.1 Deg C (04/06/23 3:42 PM) Peripheral Pulse Rate [60-100 bpm] 90 bp m (04/06/23 3:42 PM) Respiratory Rate [12-24 br/min] 20 br/mi n (04/06/23 3:42 PM) Blood Pressure [90-140/60-90 mmHg] 159/9 1mmHg *HI* (04/06/23 3:42 PM) Mean Arterial Pressure, Cuff [70-110 mmH g] 114 mmHg *HI* (04/06/23 3:42 PM) Weight 81.65 kg (04/06/23 3:42 PM) Weight Dosing 81.650 kg (04/06/23 3:42 PM) Height 157.48 cm (04/06/23 3:42 PM) Body Mass Index 32.92 kg/m2 (04/06/23 3:42 PM) Social History Social History Type Response Tobacco Current everyday tob acco user Tobacco Use:. 1 Sex 1Pt states that she smokes half a pack a day. Physician Emergency department Note * Daron Acuna MD: PERFORM, MODIFY, MODIFY, MODIFY, MODIFY, MODIFY Event Display: ED Note Physician Authored Date: [id number] MISHA JACKSON :1980 Age:42 years Sex:Female Visit Date:04/06/2023 Primary Care Physician: Hermes Ramirez MD Basic Information Time Seen: Daron Acuna MD / 04/06/2023 16:19 Chief Complaint complaining of migraine ??states right side of head ?? states is my normal migraine. ??rates pain 8on 0 to 10 scale. ??prehospital seen by pcp prior to arrival and tylenol at 1100 today. states was told had a UTI at doctors office History Of Present Illness: PT reports right side throbbing for a day with occasional nausea??that coincides with pain with urination??for the last day as well with no fevers,??no chills, no n/v/d. ?? Review of Systems: Constitutional:?No??fevers,?No??chills,?No??sweats Eye:?No??recent visual problems ENT:?No??ear pain,?No??nasal congestion,?No??sore throat Respiratory:?No??shortness of breath,?No??cough Cardiovascular:?No??Chest pain,?No??palpitations,?No??syncope Gastrointestinal:?Nonausea,?No??vomiting,?No??diarrhea Genitourinary:?No??hematuria Clemente/Lymph:?No??bruising tendency,?No??swollen lymph glands Endocrine:?No??excessive thirst,??No??excessive hunger Musculoskeletal:??No??back pain,??No??neck pain,??No??joint pain,??No??muscle pain,??No??decreased range of motion Integumentary:?No??rash,?No??pruritus,?No??abrasions Neurologic: Alert & oriented X 4, headache Psychiatric:?No??anxiety,?No??depression Physical Exam Vitals & Measurements T:??37.1?C ??(Oral)?? HR:??90??(Peripheral)?? RR:??20?? BP:??159/91?? SpO2:??96%?? HT:??157.48??cm?? WT:??81.65??kg?? BMI:??32.92?? Pain Score:??8?? O2 Therapy:??Room [...] appropriate mood and affect Medical Decision Making: Migraine vs Headache vs UTI -Benadryl 25 mg PO, Reglan 10 mg PO (pt declined) -Discussed how Dilaudid is inappropriate for migraines after it was requested; pt left AMA shortly after. ?? Procedure No Qualifying Data Assessment/Plan Ordered: Benadryl, 25 mg = 1 cap, Oral, Cap, Once, First Dose: 04/06/23 17:00:00 CAKE ICER, Stop Date: 04/06/23 17:00:00 CAKE ICER, Physician Stop, Routine Reglan, 10 mg = 1 tab, Oral, Tab, Once, First Dose: 04/06/23 17:00:00 CAKE ICER, Stop Date: 04/06/23 17:00:00 CAKE ICER, Physician Stop, Routine Urinalysis with Culture if Indicated, Urine, Stat Collect, 04/06/23 16:57:00 CAKE ICER, Once, Nurse collect, Print Label Urine Culture, Urine, Routine collect, RT - Routine, 04/06/23 16:37:00 CAKE ICER, Once, Nurse collect Patient Discharge Condition stable Discharge Disposition stable Medication Reconciliation Unchanged amLODIPine (amLODIPine 5 mg [...] Family History Cancer: Mother. Electronically Signed on 04/06/23 06:09 PM Daron Acuna MD Patient Care team information Care Team Personnel Name: Jessee Jones SR TECHNICAL SALES CONSULTANT Position: Physician Member Role: Nurse Practitioner Address: Address: [address] [place] [address], [address] [place] [address] Name: Latoya Marquez SR TECHNICAL SALES CONSULTANT Position: Physician Member Role: Nurse Practitioner Address: Address: [address] [place] [address] Name: Leonila Gonzalez NP Position: Physician Member Role: Nurse Practitioner Address: Address: [address] [place] [address] Name: Beth Brandt NP Position: Physician Member Role: Nurse Practitioner Address: Address: [address] [place] [address] Name: Hermes Ramirez MD Position: Physician Member Role: Primary Care Physician Address: Address: [address] [place] [address], [address] Name: Anamika Gore MD Position: Physician - Women's Health Member Role: Informed Provider Name: Pillo Moe NP Position: Physician Member Role: Nurse Practitioner Address: Address: [address] [place] [address], [address] Care Team Related Persons Name: STACIA JONES Address: [address] [place], [place] [id number] Name: ROBYN JAMA
--- OUTSIDE RECORDS SUMMARY | 2024-03-20 11:48 | XMS_ITS | Continuity of Care Document ---
Author Organization [facility] Address [address] [place] [address] Care Team Providers Care Distribution A Class Lineman Name Role Phone Hermes Ramirez Primary Care Physician Encounter [facility] [id number] Date(s): 01/21/22 - 01/21/[address] [address] Encounter Diagnosis Headache, migraine, intractable(Discharge Diagnosis) - 01/21/22 Degenerative disc disease, cervical(Discharge Diagnosis) - 01/21/22 Discharge Disposition: Home or Self Care Attending [...] g, 0 Refill(s), Pharmacy: [facility] - [place], [place], [address], cm, 09/13/21 23:53:00 CDT, Height/Length [...] needed, # 12 cap, 0 Refill(s), Pharmacy: [place], [place], [address], cm, 11/04/21 20:02:00 CDT, Height/Length Dosing, 73, kg, 11/04/21 20:02:00 CDT, Weight Dosing Start Date: 11/04/21 Status: Ordered ciprofloxacin 500 mg oral tablet 500 mg = 1 tab, Oral, every 12 hr, # 14 tab, 0 Refill(s), Pharmacy: [facility], [address], cm, 01/01/22 18:29:00 CDT, Height/Length [...] BID, # 180 tab, 3 Refill(s), Pharmacy: [place], [place], [address], cm, 10/22/20 21:26:00 CDT, Height/Length Dosing, 74, kg, 10/22/20 21:26:00 CDT, Weight Dosing Start Date: 12/18/20 Status: Ordered ondansetron 4 mg oral tablet, disintegrating 4 mg = 1 tab, Oral, every 6 hr, PRN nausea/vomiting, # 12 tab, 0 Refill(s), Pharmacy: [place], [place], [address], cm, 11/04/21 20:02:00 CDT, Height/Length [...] nausea/vomiting, # 20 tab, 0 Refill(s), Pharmacy: [place], [place], [address], cm, 09/29/21 23:03:00 CDT, Height/Length [...] needed., # 2 tab, 0 Refill(s), Pharmacy: [place], [place], [address], cm, 01/05/22 0:17:00 CDT, Height/Length [...] Oral [35.8-37.3 Deg C] 37.1 Deg C (01/21/22 7:11 PM) Peripheral Pulse Rate [60-100 bpm] 112 b pm *HI* (01/21/22 7:11 PM) Respiratory Rate [12-24 br/min] 16 br/mi n (01/21/22 7:11 PM) Weight 72.00 kg (01/21/22 7:11 PM) Weight Dosing 72.00 kg (01/21/22 7:20 PM) Height 157.000 cm (01/21/22 7:11 PM) Height/Length Dosing 157.000 cm (01/21/22 7:20 PM) Body Mass Index 29.000 kg/m2 (01/21/22 7:11 PM) Social History Social History Type Response Tobacco Current some day tob acco user Tobacco Use:. Sex Hospital Discharge Instructions Patient Education 01/21/2022 19:55:52 Chronic Migraine Headache Chronic Migraine Headache A [...] these instructions at home: Medicines ??? Take [id number]-[id number] and prescription medicines only as told by [...] Headache and Migraine Patients (CHAMP): headachemigraine.org ??? [place] [employer]: [email or web address].org ??? National Headache Foundation: [...] Reviewed: 04/22/2020 Elsevier Patient Education ?? 2021 [employer]. Follow Up Care 01/21/2022 19:11:04 With:Hermes Ramirez MD Address: [address] [place] [address], [address] [place] [address]- When:5 to 7 days Comments:Continue home medications. ??Keep appointments. ??Return to ED if symptoms worsen. Physician Emergency department Note * Jesus Khan MD: PERFORM Event Display: ED Note Physician Authored Date: [id number] MISHA JACKSON :1980 Age:41 years Sex:Female Visit Date:01/21/2022 Primary Care Physician: Hermes Ramirez MD Basic Information Time Seen: Jesus Khan MD / 01/21/2022 19:35 Chief Complaint migraine like usual headache ??started this am and nausea like usual headache states she had mri done and has degenerative disc disease and bulging disc is being referred to neurosurgeon History Of Present Illness: Patient comes in complaining of migraine headache??like usual??headaches.?? Also complains of nausea.?? Headache started this morning??patient mentions she had a??MRI done of her cervical spine and showed??degenerative disc disease??and bulging disc.?? She was referred to see if??neurosurgeon. ??Apparently has an appointment??for 03/09/2022.?? Also mentions that she is??going to be seeing her??transplant team??(kidney/liver)??this coming Monday??.?? Symptoms are the same as usual. Review of Systems: Constitutional:?No??fevers,?No??chills,?No??sweats Eye:?No??recent visual problems ENT:?No??ear pain,?No??nasal congestion,?No??sore throat Respiratory:?No??shortness of breath,?No??cough Cardiovascular:?No??Chest pain,?No??palpitations,?No??syncope Gastrointestinal:?Positive fornausea,?No??vomiting,?No??diarrhea Genitourinary:?No??hematuria Clemente/Lymph:?No??bruising tendency,?No??swollen lymph glands Endocrine:?No??excessive thirst,??No??excessive hunger Musculoskeletal:??No??back pain,??No??neck pain,??No??joint pain,??No??muscle pain,??No??decreased range of motion Integumentary:?No??rash,?No??pruritus,?No??abrasions Neurologic: Alert & oriented X 4 Psychiatric:?No??anxiety,?No??depression Physical Exam Vitals & Measurements T:??37.1?C ??(Oral)?? HR:??112??(Peripheral)?? RR:??16?? SpO2:??99%?? HT:??157.000??cm?? WT:??72.00??kg?? BMI:??29.000?? Pain Score:??8?? O2 Therapy:??Room air?? General: [...] appropriate mood and affect Medical Decision Making: Normal saline 500 mL bolus; Dilaudid 0.5 mg IV push; Phenergan 25 mg IM;??diphenhydramine 25 mg IV push. Procedure No Qualifying Data Assessment/Plan 1.??Headache, migraine, intractable??G43.919 Orders: diphenhydrAMINE, 25 mg = 0.5 mL, Slow IV Push, Injection, Once, First Dose: 01/21/22 19:48:00 CDT, Stop Date: 01/21/22 19:48:00 CDT, Physician Stop Dilaudid, 0.5 mg = 0.5 mL, Slow IV Push, Injection, Once, First Dose: 01/21/22 19:48:00 CDT, Stop Date: 01/21/22 19:48:00 CDT, Physician Stop Phenergan, 25 mg = 1 mL, IM, Injection, Once, First Dose: 01/21/22 19:48:00 CDT, Stop Date: 01/21/22 19:48:00 CDT, Physician Stop NS bolus, 500 mL, IV Bolus, Soln-IV, Once, Administer over: 0.5 hr, First Dose: 01/21/22 20:00:00 CDT, Stop Date: 01/21/22 20:00:00 CDT, Physician Stop, 999 mL/hr Chronic migraine headaches Patient Discharge Condition Stable Discharge Disposition Discharge home Patient Education Chronic Migraine Headache Follow Up With When Contact Information Hermes Ramirez MD Within 5 to 7 days [address] [facility], [address] [place] [id number]- Additional Instructions: Continue home medications. ??Keep appointments. ??Return to ED if symptomsworsen. Medication Reconciliation Unchanged albuterol (albuterol 90 mcg/inh [...] of finger Congenital biliary atresia Constipation COVID-19 Difficulty sleeping Ear drainage right Fever Flank [...] Attestation Follow-up with PCP Electronically Signed on 01/21/22 07:57 PM Jesus Khan MD Patient Care team information Personnel Name: Hermes Ramirez MD Address: Address: [address] [place] [address]
--- OUTSIDE RECORDS SUMMARY | 2024-03-20 11:48 | XMS_ITS | Continuity of Care Document ---
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 Name Role Phone Hermes Ramirez Primary Care Physician [phone] Encounter [place] [id number] Date(s): 02/11/23 - 02/11/[address] [address]- [place] Encounter Diagnosis Back pain without sciatica(Discharge Diagnosis) - 02/11/23 Migraine headache(Discharge Diagnosis) - 02/11/23 Discharge Disposition: Home or Self Care Attending [...] Complete 2+ Views Right 07/04/22 Functional Status 02/11/23 Recent Travel History No recent travel Other [...] Daily, # 30 tab, 11 Refill(s), Pharmacy: [place], [place], 157.48, cm, 01/04/23 15:03:00 CDT, Height/Length [...] # 30 tab, 0 Refill(s), :54:00 PM [employer], Pharmacy: [place], 157, cm, 02/10/23 20:49:00 [employer], Height, 82, kg, 02/10/23 20:49:00 [employer], Weight Dosing Start Date: 02/10/23 Stop Date: [...] BID, # 60 cap, 11 Refill(s), Pharmacy: [place], 157.48, cm, 01/04/23 15:03:00 CDT, Height/Length Dosing, 81.65, kg, 01/04/23 15:03:00 CDT, Weight Dosing Start Date: 01/11/23 Status: Ordered morphine 4 mg = 1 mL, IM, Injection, Once, First Dose: 02/11/23 10:00:00 AM [employer], Stop Date: 02/11/23 9:47:55AM [employer], Physician Stop, Routine Start Date: 02/11/23 Stop Date: 02/11/23 Status: Completed mycophenolate mofetil 250 mg oral [...] Urinalysis with Culture if Indicated .Urine Volume 02/11/23 Urinalysis Microscopic 02/11/23 Most recent to oldest [Reference Range]: 1 UA Color Yellow (02/11/23 9:56 AM) UA WBC [0-5] None (02/11/23 9:56 AM) UA Urobilinogen [Normal mg/dL] Normal mg /dL (02/11/23 9:56 AM) UA Hyal Cast 0-2 (02/11/23 9:56 AM) UA Bili [Negative mg/dL] Negative mg/dL (02/11/23 9:56 AM) UA Ketones [Negative mg/dL] Negative mg/ dL (02/11/23 9:56 AM) UA RBC [0-3] 0-3 (02/11/23 9:56 AM) UA Leuk Est [Negative Guille/mcL] Negative Guille/mcL (02/11/23 9:56 AM) UA Nitrite [Negative] Negative (02/11/23 9:56 AM) UA Glucose [Normal mg/dL] Normal mg/dL (02/11/23 9:56 AM) UA Bacteria [None Seen] Occasional *ABN* (02/11/23 9:56 AM) UA Protein [Negative mg/dL] Negative mg/ dL (02/11/23 9:56 AM) UA Blood [Negative Rocael/mcL] Trace Rocael/mc L *ABN* (02/11/23 9:56 AM) UA Mucous [None Seen] None Seen (02/11/23 9:56 AM) UA Spec Grav 1.005 (02/11/23 9:56 AM) UA Squam Epithelial [None Seen] Occasion al (02/11/23 9:56 AM) UA pH [5.0-9.0] 7.0 (02/11/23 9:56 AM) UA Appear [Clear] Slightly Hazy (02/11/23 9:56 AM) UA Culture Ind?. Not Indicated (02/11/23 9:56 AM) Urine Srce Urine (02/11/23 9:56 AM) Urine Volume 12 mL (02/11/23 9:56 AM) UA Yeast [None Seen] None Seen (02/11/23 9:56 AM) Radiology Reports * Exam Date Time Procedure Performing Provider Status 02/11/23 10:01 AM XR Spine Thoracic 3 Views Rachael Em RT(R)(MR)(CT)(ARRT); Auth (Verified) Notes: (XR Spine Thoracic 3 Views) Reason For Exam: Mid-back pain XR Spine Thoracic 3 Views EXAM DESCRIPTION: XR Spine Thoracic 3 Views REASON FOR STUDY: moved furniture 4 days ago now having mid/lower back pain that goes across the back SMOKING HISTORY: 1/2 ppd Comparisons: 10/31/22 CANCER HISTORY: TYPE: skin CANCER HISTORY: TREATMENT: TECHNIQUE: 3 radiographic view(s) of the thoracic spine. COMPARISON: None available FINDINGS: ALIGNMENT: Mild lower lumbar levocurvature. Normal AP vertebral body alignment. VERTEBRAE: Vertebral body heights are maintained. Small midthoracic anterior marginal osteophytes. DISCS: Early midthoracic disc height loss. SOFT TISSUES: Within normal limits. IMPRESSION: Mild thoracic degenerative disc disease. THIS IS AN ELECTRONICALLY VERIFIED FINAL REPORT 02/11/2023 10:25 AM - Electronically signed by Samm Orona M.D. AG: BRIAN Report ID: [id number] Reading Location: [place] [id number] Final Dictated by: Samm Orona MD Dictated DT/TM: 02/11/2023 10:27 am Signed by: Samm Orona MD Signed (Electronic Signature): 02/11/2023 10:27 am * Exam Date Time Procedure Performing Provider Status 02/11/23 10:01 AM XR Spine Lumbosacral 2 or 3 Views Rachael Em RT(R)(MR)(CT)(ARRT); Auth (Verified) Notes: (XR Spine Lumbosacral 2 or 3 Views) Reason For Exam: Back pain XR Spine Lumbosacral 2 or 3 Views EXAM DESCRIPTION: XR Spine Lumbosacral 2 or 3 Views REASON FOR STUDY: moved furniture 4 days ago now having mid/lower back pain that goes across the back Comparisons: 02/12/2019 CANCER HISTORY: TYPE: skin CANCER HISTORY: TREATMENT: surgery SMOKING HISTORY: TECHNIQUE: 3 radiographic view(s) of the lumbar spine. COMPARISON: None available FINDINGS: ALIGNMENT: Slight levocurvature centered at L3. VERTEBRAE: Vertebral bodies of normal height. Few tiny anterior marginal osteophytes. Facet joints are maintained. DISCS: Disc heights are maintained. SOFT TISSUES: Within normal limits. IMPRESSION: No acute osseous abnormality. Early lumbar degenerative disc disease. THIS IS AN ELECTRONICALLY VERIFIED FINAL REPORT 02/11/2023 10:23 AM - Electronically signed by Samm Orona M.D. AG: BRIAN Report ID: [id number] Reading Location: [id number] Final Dictated by: Samm Orona MD Dictated DT/TM: 02/11/2023 10:25 am Signed by: Samm Orona MD Signed (Electronic Signature): 02/11/2023 10:25 am Vital Signs Most recent to oldest [Reference Range]: 1 2 3 Temperature Oral [35.8-37.3 Deg C] 37.2 Deg C (02/11/23 8:50 AM) Peripheral Pulse Rate [60-100 bpm] 77 bpm (02/11/23 11:08 AM) 80 bpm (02/11/23 10:08 AM) 82 bpm (02/11/23 8:50 AM) Respiratory Rate [12-24 br/min] 18 br/min (02/11/23 11:08 AM) 18 br/min (02/11/23 10:08 AM) 18 br/min (02/11/23 9:43 AM) Blood Pressure [90-140/60-90 mmHg] 118/74mmHg (02/11/23 11:08 AM) 128/74mmHg (02/11/23 10:08 AM) 122/77mmHg (02/11/23 8:50 AM) Mean Arterial Pressure, Cuff [70-110 mmHg] 92 mmHg (02/11/23 8:50 AM) Weight 81.65 kg (02/11/23 8:50 AM) Weight Dosing 81.65 kg (02/11/23 9:32 AM) Height 157.000 cm (02/11/23 9:32 AM) 157.000 cm (02/11/23 8:50 AM) Body Mass Index 33.000 kg/m2 (02/11/23 8:50 AM) Social History Social History Type Response Tobacco Current everyday tob acco user Tobacco Use:. Sex Hospital Discharge Instructions Patient Education 02/11/2023 10:56:16 Acute Back Pain, Adult Acute Back Pain, [...] Managing pain, stiffness, and swelling ??? Take [id number] and prescription medicines only as told by [...] day. ??? 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 ??? Take zeha-pqp-sojxfvq and prescription medicines only as told by your health care provider, andapply heat or ice as told. This information is not intended to replace advice given to you by your health care provider. Make sure you discuss any questions you have with your health care provider. Document Revised: 05/28/2021 Document Reviewed: 05/28/2021 [employer] Patient Education ?? 2022 [employer]. Follow Up Care 02/11/2023 08:50:27 With:Hermes Ramirez MD Address: [address] [place] [address], [address] [place] [address]- When:1 month Physician Emergency department Note * Maryam Cortés MD: PERFORM Event Display: ED Note Physician Authored Date: [id number] MISHA JACKSON :1980 Age:42 years Sex:Female Visit Date:02/11/2023 Primary Care Physician: Hermes Ramirez MD Basic Information Time Seen: Maryam Cortés MD / 02/11/2023 09:26 Chief Complaint Pt complains of back pain since , was seen in ED yesterday. Pt requesting a pain shot. Shehas not picked up the flexeril Rx from yesterdays visit. Has not taken any OTC meds today. Took 1000mg tylenol yesterday at 1600. History Of Present Illness: Patient returns to ER with a complaint of back pain. She was seen last night for same complaint. The pain resolved with pain medication but it returned again during the night, felt in mid-back, rated9/10. Pain is aggravated by movements, no relieving factors. No radiation. She has no urinary symptoms. No trauma but the pain first started 2 days ago after moving some furniture. Review of Systems: Constitutional:?No??fevers,?No??chills,?No??sweats Eye:?No??recent visual problems ENT:?No??ear pain,?No??nasal congestion,?No??sore throat Respiratory:?No??shortness of breath,?No??cough Cardiovascular:?No??Chest pain,?No??palpitations,?No??syncope Gastrointestinal:?Nonausea,?No??vomiting,?No??diarrhea Genitourinary:?No??hematuria Clemente/Lymph:?No??bruising tendency,?No??swollen lymph glands Endocrine:?No??excessive thirst,??No??excessive hunger Musculoskeletal:??Positive for??back pain,??No??neck pain,??No??joint pain,??No??muscle pain,??No??decreased range of motion Integumentary:?No??rash,?No??pruritus,?No??abrasions Neurologic: Alert & oriented X 4 Psychiatric:?No??anxiety,?No??depression Physical Exam Vitals & Measurements T:??37.2?C ??(Oral)?? HR:??80??(Peripheral)?? RR:??18?? BP:??128/74?? SpO2:??98%?? HT:??157.000??cm?? WT:??81.65??kg?? BMI:??33.000?? Pain Score:??9?? O2 Therapy:??Room air?? General: Alert and oriented, well nourished,?No??acute distress Eye: PERRL, EOMI,?Normal?conjunctiva HENT: Normocephalic, clear tympanic membranes,?Normal? hearing, moist oral mucosa,?No??scleral icterus,?No??sinus tenderness Neck: Supple, non-tender,?No??carotid bruits,?No??JVD,?No??lymphadenopathy Lungs:??Clear to auscultation?? Respiration:??Non-Labored Heart:?Normal? rate,?Regular??rhythm,?No??murmur,?No??gallop,?No??edema Abdomen: Soft, non-tender, non-distended,?Normal? bowel sounds,?No??masses Musculoskeletal:?Normal? range of motion and strength,?No??tenderness,?No??swelling Back: Paraspinal tenderness in mid back. SLE negative bilaterally. Skin: Skin is warm, dry and pink,?No??rashes,?No??lesions Neurologic: Awake, alert and oriented X4, CN II-XII intact Psychiatric: Cooperative, appropriate mood and affect Medical Decision Making: UA - Negative. ? (02/11/2023 10:01 [employer] XR Spine Thoracic 3 Views) IMPRESSION: ?Mild thoracic degenerative disc disease. ?? THIS IS AN ELECTRONICALLY VERIFIED FINAL REPORT 02/11/2023 10:25 AM - Electronically signed by ??Samm Orona M.D. ?? AG: AG D: ??02/11/2023 10:25 AM T: ??02/11/2023 10:25 AM ?? Report ID: [id number] Reading Location: ??[id number] ? Signature Line Final ?? Dictated by: ?Samm Orona MD Dictated DT/TM: 02/11/2023 10:27 am Signed by: ??Samm Orona MD Signed (Electronic Signature): ??02/11/2023 10:27 am [1] ? (02/11/2023 10:01 [employer] XR Spine Lumbosacral 2 or 3 Views) IMPRESSION: ?No acute osseous abnormality. ??Early lumbar degenerative disc disease. ?? THIS IS AN ELECTRONICALLY VERIFIED FINAL REPORT 02/11/2023 10:23 AM - Electronically signed by ??Samm Orona M.D. ?? AG: AG D: ??02/11/2023 10:23 AM T: ??02/11/2023 10:23 AM ?? Report ID: [id number] Reading Location: ??[id number] ? Signature Line Final ?? Dictated by: ?Samm Orona MD Dictated DT/TM: 02/11/2023 10:25 am Signed by: ??Samm Orona MD Signed (Electronic Signature): ??02/11/2023 10:25 am [2] ?? 1050 - Back pain is improved. X-Rays negative. To be discharged home. ?? Procedure No Qualifying Data Assessment/Plan 1.??Back pain without sciatica??M54.89 2.??Migraine headache??G43.709 Orders: cyclobenzaprine 10 mg oral tablet, 10 mg = 1 tab, Oral, TID, PRN as needed for muscle spasm, X 10 days, # 30 tab, 0 Refill(s), 02/20/23 20:54:00 [employer], Pharmacy: [place], [place], [address], cm, 02/10/23 20:49:00 [employer], Height, 82, kg, 02/10/23 20:49:00 [employer], Weight Dosing Discharge Patient, 02/11/23 10:57:00 [employer] Patient Discharge Condition Improved Discharge Disposition Home. Patient Education Acute Back Pain, Adult Follow Up With When Contact Information Hermes Ramirez MD Within 1 month [facility], [address] [place] [address]- Additional Instructions: Medication Reconciliation Unchanged amLODIPine (amLODIPine 5 mg oral tablet)1 tab Oral (given by mouth) every day. Refills: 11. ?? aspirin (aspirin 81 mg oral delayed release tablet)1 tab Oral (given by mouth) every day. ?? cyclobenzaprine (cyclobenzaprine 10 mg oral tablet)1 tab Oral (given by mouth) 3 times a day as needed as needed for muscle spasm for 10 Days. Refills: 0. ?? cycloSPORINE [...] Liver transplantation (05/08/2020)???Mammogram (2020)??? delivery???cyst removal from [facility]???[place]ia???liver transplant Medication Administration Given Benadryl, 50 mg, Oral morphine, 4 mg, IM Allergies NSAIDs Toradol??(Kidney failure as a complication of care) aspirin??(Medication interaction) azithromycin??(Unknown) codeine??(Unknown, Itching) gentamicin erythromycin??(Medication interaction) Social History Alcohol Never Electronic Cigarette/Vaping Electronic Cigarette Use: Never. Substance Use Never Tobacco Current everyday tobacco user Tobacco Use:.- Comments: Pt states that she smokes half a pack a day. Family History Cancer: Mother. Diagnostic Results XR Spine Lumbosacral 2 or 3 Views 02/11/2023 10:25 [employer] XR Spine Thoracic 3 Views 02/11/2023 10:28 [employer] XR Spine Lumbosacral 2 or 3 Views ?? 02/11/23 10:17:59 ? EXAM DESCRIPTION: XR Spine Lumbosacral 2 or 3 Views ?? REASON FOR STUDY: moved furniture 4 days ago now having mid/lower back pain that goes across the back ?? Comparisons: 02/12/2019 ? CANCER HISTORY: TYPE: skin ? CANCER HISTORY: TREATMENT: surgery ? SMOKING HISTORY: ? TECHNIQUE: 3 radiographic view(s) of the lumbar spine. ?? COMPARISON: None available ?? FINDINGS: ALIGNMENT: Slight levocurvature centered at L3. ?? VERTEBRAE: Vertebral bodies of normal height. Few tiny anterior marginal osteophytes. Facet joints are maintained. ?? DISCS: Disc heights are maintained. ?? SOFT TISSUES: Within normal limits. ?? IMPRESSION: ?? No acute osseous abnormality. Early lumbar degenerative disc disease. ?? THIS IS AN ELECTRONICALLY VERIFIED FINAL REPORT 02/11/2023 10:23 AM_Electronically signed Rae Orona M.D. ?? AG: AG ?? Report ID: [id number] Reading Location: [place] [id number] ?? Signed By: Samm Orona MD ?? XR Spine Thoracic 3 Views ?? 02/11/23 10:23:28 ? EXAM DESCRIPTION: XR Spine Thoracic 3 Views ?? REASON FOR STUDY: moved furniture 4 days ago now having mid/lower back pain that goes across the back ? SMOKING HISTORY: 1/2 ppd ?? Comparisons: 10/31/22 ? CANCER HISTORY: TYPE: skin ? CANCER HISTORY: TREATMENT: ? TECHNIQUE: 3 radiographic view(s) of the thoracic spine. ?? COMPARISON: None available ?? FINDINGS: ALIGNMENT: Mild lower lumbar levocurvature. Normal AP vertebral body alignment. ?? VERTEBRAE: Vertebral body heights are maintained. Small midthoracic anterior marginal osteophytes. ?? DISCS: Early midthoracic disc height loss. ?? SOFT TISSUES: Within normal limits. ?? IMPRESSION: ?? Mild thoracic degenerative disc disease. ?? THIS IS AN ELECTRONICALLY VERIFIED FINAL REPORT 02/11/2023 10:25 AM_Electronically signed Rae Orona M.D. ?? AG: ?? Report ID: [id number] Reading Location: [id number] ?? Signed By: Samm Orona MD Lab Results UA Macroscopic?? LATEST RESULTS?? HISTORICAL RESULTS?? Urine Srce?? 02/11/23 09:56?? Urine?? 01/27/23?? Clean Catch?? Urine Volume?? 02/11/23 09:56?? 12?? 01/27/23?? 12?? UA Color?? 02/11/23 09:56?? Yellow?? 01/27/23?? Yellow?? UA Appear?? 02/11/23 09:56?? Slightly Hazy?? 01/27/23?? Clear?? UA Glucose?? 02/11/23 09:56?? Normal?? 01/27/23?? Normal?? UA Bili?? 02/11/23 09:56?? Negative?? 01/27/23?? Negative?? UA Ketones?? 02/11/23 09:56?? Negative?? 01/27/23?? Negative?? UA Spec Grav?? 02/11/23 09:56?? 1.005?? 01/27/23?? 1.005?? UA Blood?? 02/11/23 09:56?? Trace Abnormal?? 01/27/23?? Negative?? UA pH?? 02/11/23 09:56?? 7.0?? 01/27/23?? 7.0?? UA Protein?? 02/11/23 09:56?? Negative?? 01/27/23?? Negative?? UA Urobilinogen?? 02/11/23 09:56?? Normal?? 01/27/23?? Normal?? UA Nitrite?? 02/11/23 09:56?? Negative?? 01/27/23?? Negative?? UA Leuk Est?? 02/11/23 09:56?? Negative?? 01/27/23?? Negative?? UA Culture Ind?.?? 02/11/23 09:56?? Not Indicated?? 01/27/23?? Not Indicated? UA Microscopic?? LATEST RESULTS?? HISTORICAL RESULTS?? UA WBC?? 02/11/23 09:56?? None?? 01/27/23?? None?? UA RBC?? 02/11/23 09:56?? 0-3?? 01/27/23?? None?? UA Squam Epithelial?? 02/11/23 09:56?? Occasional?? 01/27/23?? Few?? UA Yeast?? 02/11/23 09:56?? None Seen?? 01/27/23?? None Seen?? UA Mucous?? 02/11/23 09:56?? None Seen?? 01/27/23?? None Seen?? UA Bacteria?? 02/11/23 09:56?? Occasional Abnormal?? 01/27/23?? None Seen?? UA Hyal Cast?? 02/11/23 09:56?? 0-2?? 09/09/21?? 0-2? [1]??XR Spine Thoracic 3 Views; Samm Orona MD 02/11/2023 10:01 [employer] [2]??XR Spine Lumbosacral 2 or 3 Views; Samm Orona MD 02/11/2023 10:01 [employer] Electronically Signed on 02/11/23 10:58 AM Maryam Cortés MD Patient Care team information Care Team Personnel Name: Jessee Jones HOOKER OPERATOR Position: Physician Member Role: Nurse Practitioner Address: Address: [address] [place] [address], [address] [place] [address]- Name: Latoya Marquez NP Position: Physician Member Role: Nurse Practitioner Address: Address: [address] [place] [address]- Name: Leonila Gonzalez HOOKER OPERATOR Position: Physician Member Role: Nurse Practitioner Address: Address: [address] [place] [address]- Name: Beth Brandt NP Position: Physician Member Role: Nurse Practitioner Address: Address: [address] [place] [address] Name: Hermes Ramirez MD Position: Physician Member Role: Primary Care Physician Address: Address: [address] [place] [address], [address] [place] [address]- [place] Name: Anamika Gore MD Position: Physician - Women's Health Member Role: Informed Provider Name: Pillo Moe NP Position: Physician Member Role: Nurse Practitioner Address: Address: [address] [place] [address], [address] [place], [place] Name: Maryam Cortés MD Position: Physician Member Role: ED Physician Address: Address: [address] [place] [address] [place] [address]- [place] Name: Misty Cornejo RN Position: Nurse Member Role: Registered Nurse Care Team Related Persons Name: STACIA JONES Address: Home [address] [place] [phone] Name: ROBYN JAMA
--- OUTSIDE RECORDS SUMMARY | 2024-03-20 11:48 | XMS_ITS | Continuity of Care Document ---
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 Phone Hermes Ramirez Primary Care Physician Encounter RANDY MARILUZ [id number] Date(s): 01/14/24 - 01/14/24 [facility] [address] [place] [address]- [place] Encounter Diagnosis Knee pain, right(Discharge Diagnosis) - 01/14/24 Pain in right shoulder(Discharge Diagnosis) - 01/14/24 Pain in right hip(Discharge Diagnosis) - 01/14/24 Discharge Disposition: Home or Self Care Attending Physician: Andrew Francis DO Admitting Physician: Andrew Francis DO Allergies, Adverse Reactions, Alerts Substance Criticality Severity Reaction Reaction Severity Status codeine High criticality Severe Unknown Itching Active gentamicin High criticality Moderate Ac tive erythromycin Medication interaction Active Toradol High criticality Severe Kidney fail ure as a complication of care Active NSAIDs High criticality Severe Act luis miguel azithromycin High criticality Severe Unknown Active aspirin High criticality Severe Medication interaction Active morphine 1 Low criticality Mild redness Itching Active 1localized reaction at iv site Assessment and Plan Extracted from: Title:ED Provider Note Author:Andrew Francis Date:01/14/24 Assessment/Plan Knee pain, right??M25.561 Pain in right hip??M25.551 Pain in right shoulder??M25.511 Patient Discharge Condition good Discharge Disposition home Patient Education Musculoskeletal Pain Joint Pain Hip Pain Follow Up With When Contact Information Follow up with primary care provider Within 24 Hours Additional Instructions: Future Appointments Future Scheduled Tests Radiology* MRI [...] Daily, # 30 tab, 11 Refill(s), Pharmacy: [place], [place], 157.48, cm, 01/04/23 15:03:00 CDT, Height/Length Dosing, 81.65, kg, 01/04/23 15:03:00 CDT, Weight Dosing Start Date: 01/11/23 Status: Ordered amoxicillin 875 mg oral tablet 875 mg = 1 tab, Oral, BID, # 14 tab, 0 Refill(s), Pharmacy: [id number], 157.48, cm, 01/01/24 14:49:00 CDT, Height, [...] BID, # 120 cap, 2 Refill(s), Pharmacy: [id number], 157.48, cm, 07/23/23 17:59:00 CDT, Height, [...] BID, # 60 cap, 11 Refill(s), [facility] [place] [place], 157.48, cm, 01/04/23 15:03:00 CDT, Height/Length Dosing, 81.65, kg, 01/04/23 15:03:00 CDT, Weight Dosing Start Date: 01/11/23 Status: Ordered nicotine 21 mg/24 hr transdermal film, extended release 1 patches, Transdermal, Daily, # 14 patches, 1 Refill(s), Pharmacy: [id number], 157.48, cm, 01/01/24 14:49:00 CDT, Height, 87.09, kg, 01/01/24 14:53:00 CDT, Weight Dosing Start Date: 01/01/24 Status: Ordered Nicotrol Inhaler 10 mg inhalation device See Instructions, 6-16 cartriges/day, # 1 EA, 2 Refill(s), Pharmacy: [id number], 157.48, cm, 08/29/23 14:22:00 CDT, Height, 88, kg, 08/29/23 14:27:00 CDT, Weight Dosing Start Date: 08/29/23 Status: Ordered pantoprazole 40 mg oral delayed release tablet 1 tab, Oral, Daily, # 90 tab, 0 Refill(s), Pharmacy: [id number], 157.48, cm, 06/07/23 16:07:00 CDT, Height, 89.36, [...] QID, # 360 tab, 0 Refill(s), Pharmacy: [id number], 157.48, cm, 08/29/23 14:22:00 CDT, Height, 88, kg, 08/29/23 14:27:00 CDT, Weight Dosing Start Date: 09/05/23 Status: Ordered venlafaxine 37.5 mg oral capsule, extended release 37.5 mg = 1 cap, Oral, Daily, # 90 cap, 0 Refill(s), Pharmacy: [id number], 157.48, cm, 09/28/23 18:18:00 CDT, Height, [...] Oral [35.8-37.3 Deg C] 36.5 Deg C (01/14/24 3:19 AM) Peripheral Pulse Rate [60-100 bpm] 74 bp m (01/14/24 3:19 AM) Respiratory Rate [12-24 br/min] 18 br/mi n (01/14/24 3:19 AM) Blood Pressure [90-120/60-80 mmHg] 177/9 0mmHg *HI* (01/14/24 3:19 AM) Mean Arterial Pressure, Cuff [65-140 mmH g] 119 mmHg (01/14/24 3:19 AM) Weight 89.81 kg (01/14/24 3:19 AM) Weight Dosing 89.810 kg (01/14/24 3:19 AM) Height 157.48 cm (01/14/24 3:19 AM) Body Mass Index 36.21 kg/m2 (01/14/24 3:19 AM) Social History Social History Type Response Tobacco Current everyday tob acco user Tobacco Use:. Sex Sex Representation Female (finding) Hospital Discharge Instructions Patient Education 01/14/2024 03:40:02 Musculoskeletal Pain Musculoskeletal Pain Musculoskeletal pain refers to aches and pains in your bones, joints, muscles, and the tissues thatsurround them. This pain can occur in any part of the body. It can last for a short time (acute) ora long time (chronic). A physical exam, lab tests, and imaging studies may be done to find the cause of your musculoskeletal pain. Follow these instructions at home: Lifestyle ??? Try to control or lower your stress levels. Stress increases muscle tension and can worsen musculoskeletal pain. It is important to recognize when you are anxious or stressed and learn ways to manage it. This may include: ??? Meditation or yoga. ??? Cognitive or behavioral therapy. ??? Acupuncture or massage therapy. ??? You may continue all activities unless the activities cause more pain. When the pain gets better, slowly resume your normal activities. Gradually increase the intensity and duration of your activities or exercise. Managing pain, stiffness, and swelling ??? Treatment may include medicines for pain and inflammation that are taken by mouth or applied tothe skin. Take mexk-qjw-zdjvuzz and prescription medicines only as told by your health care provider. ??? When your pain is severe, bed rest may be helpful. Lie or sit in any position that is comfortable, but get out of bed and walk around at least every couple of hours. ??? If directed, apply heat to the [...] a greater risk of getting burned. ??? If directed, put ice on the painful area. To do this: ??? Put ice in [...] greater risk of damage to the area. General instructions ??? Your health care provider may recommend that you see a physical therapist. This person can helpyou come up with a safe exercise program. ??? If told by your health care provider, do physical therapy exercises to improve movement and strength in the affected area. ??? Keep all follow-up visits. This is important. This includes any physical therapy visits. Contact a health care provider if: ??? Your pain gets worse. ??? Medicines do not help ease your pain. ??? You cannot use the part of your body that hurts, such as your arm, leg, or neck. ??? You have trouble sleeping. ??? You have trouble doing your normal activities. Get help right away if: ??? You have a new injury and your pain is worse or different. ??? You feel numb or you have tingling in the painful area. Summary ??? Musculoskeletal pain refers to aches and pains in your bones, joints, muscles, and the tissues that surround them. ??? This pain can occur in any part of the body. ??? Your health care provider may recommend that you see a physical therapist. This person can helpyou come up with a safe exercise program. Do any exercises as told by your physical therapist. ??? Lower your stress level. Stress can worsen musculoskeletal pain. Ways to lower stress may include meditation, yoga, cognitive or behavioral therapy, acupuncture, and massage therapy. This information is not intended to replace advice given to you by your health care provider. Make sure you discuss any questions you have with your health care provider. Document Revised: 07/09/2020 Document Reviewed: 06/17/2020 [employer] Patient Education ?? 2022 [employer] 01/14/2024 03:40:02 Joint Pain Joint Pain Joint pain may be caused by many things. Joint pain is likely to go away when you follow instructions from your health care provider for relieving pain at home. However, joint pain can also be causedby conditions that require more treatment. Common causes of joint pain include: ??? Bruising in the area of the joint. ??? Injury caused by repeating certain movements too many times. ??? Age-related joint wear and tear. ??? Buildup of uric acid crystals in the joint (gout). ??? Inflammation of the joint. ??? Other forms of arthritis. ??? Infections of the joint or of the bone. Your health care provider may recommend that you take pain medicine or wear a supportive device like an elastic bandage, sling, or splint. If your joint pain continues, you may need lab or imaging tests to diagnose the cause of your joint pain. Follow these instructions at home: Managing pain, stiffness, and swelling ??? If directed, put ice on the painful area. To [...] to the area. ??? Move your fingers and toes often to reduce stiffness and swelling. ??? Raise the injured area above the level of your heart while you are sitting or lying down. If directed, apply heat to the painful area as often as told by your health care provider. Use the heat source that your health [...] risk of getting burned. Activity ??? Rest as told by your health care provider. Do not do anything that causes or worsens pain. ??? Begin exercising or stretching the affected area as told by your health care provider. ??? Return to your normal activities as told by your health care provider. Ask your health care provider what activities are safe for you. If you have an elastic bandage, sling, or splint: ??? Wear the bandage, sling, or splint as told by your health care provider. Remove it only as toldby your health care provider. ??? Loosen it if your fingers or toes below the joint tingle, become numb, or turn cold and blue. ??? Keep it clean. ??? Ask your health care provider if you should remove it before bathing. ??? If the bandage, sling, or splint is not waterproof: ??? Do not let it get wet. ??? Cover it with a watertight covering when you take a bath or shower. General instructions ??? Treatment may include medicines for pain and inflammation that are taken by mouth or applied tothe skin. Take kryb-pqt-kiwbqvv and prescription medicines only as told by your health care provider. ??? Do not use any products that contain nicotine or tobacco, such as cigarettes, e-cigarettes, andchewing tobacco. If you need help quitting, ask your health care provider. ??? Keep all follow-up visits. This is important. Contact a health care provider if: ??? You have pain that gets worse and does not get better with medicine. ??? Your joint pain does not improve within 3 days. ??? You have increased bruising or swelling. ??? You have a fever. ??? You lose 10 lb (4.5 kg) or more without trying. Get help right away if: ??? You cannot move the joint. ??? Your fingers or toes tingle, become numb, or turn cold and blue. ??? You have a fever along with a joint that is red, warm, and swollen. Summary ??? Joint pain may be caused by many things. ??? Your health care provider may recommend that you take pain medicine or wear a supportive devicesuch as an elastic bandage, sling, or splint. ??? If your joint pain continues, you may need tests to diagnose the cause of your joint pain. ??? Take kogs-lxt-hbtcink and prescription medicines only as told by your health care provider. This information is not intended to replace advice given to you by your health care provider. Make sure you discuss any questions you have with your health care provider. Document Revised: 06/17/2020 Document Reviewed: 06/17/2020 [employer] Patient Education ?? 2022 [employer]. 01/14/2024 03:40:02 Hip Pain Hip Pain The hip is the joint between the upper legs and the lower pelvis. The bones, cartilage, tendons, and muscles of your hip joint support your body and allow you to move around. Hip pain can range from a minor ache to severe pain in one or both of your hips. The pain may be felt on the inside of the hip joint near the groin, or on the outside near the buttocks and upper thigh. You may also have swelling or stiffness in your hip area. Follow these instructions at home: Managing pain, stiffness, and swelling ??? If directed, put ice on the painful area. To do this: ??? Put ice in [...] risk of getting burned. Activity ??? Do exercises as told by your health care provider. ??? Avoid activities that cause pain. General instructions ??? Take mchd-xyl-huseabd and prescription medicines only as told by your health care provider. ??? Keep a journal of your symptoms. Write down: ??? How often you have hip pain. ??? The location of your pain. ??? What the pain feels like. ??? What makes the pain worse. ??? Sleep with a pillow between your legs on your most comfortable side. ??? Keep all follow-up visits as told by your health care provider. This is important. Contact a health care provider if: ??? You cannot put weight on your leg. ??? Your pain or swelling continues or gets worse after one week. ??? It gets harder to walk. ??? You have a fever. Get help right away if: ??? You fall. ??? You have a sudden increase in pain and swelling in your hip. ??? Your hip is red or swollen or very tender to touch. Summary ??? Hip pain can range from a minor ache to severe pain in one or both of your hips. ??? The pain may be felt on the inside of the hip joint near the groin, or on the outside near the buttocks and upper thigh. ??? Avoid activities that cause pain. ??? Write down how often you have hip pain, the location of the pain, what makes it worse, and whatit feels like. This information is not intended to replace advice given to you by your health care provider. Make sure you discuss any questions you have with your health care provider. Document Revised: 07/22/2019 Document Reviewed: 07/22/2019 [employer] Patient Education ?? 2022 [employer] Follow Up Care 01/14/2024 03:10:27 With:Follow up with primary care provider Address:Unknown When:24 Hours Physician Emergency department Note * Andrew Francis DO: PERFORM, MODIFY Event Display: ED Note Physician Authored Date: [id number] MISHA JACKSON :1980 Age:43 years Sex:Female Visit Date:01/14/2024 Primary Care Physician: Hermes Ramirez MD Basic Information Time Seen: Andrew Francis DO / 01/14/2024 03:28 Chief Complaint Pt arrives to ED with c/o right knee, hip and shoulder pain since falling recently. Has had xrays. MRI scheduled. Tylenol, Tramadol, and Flexeril PH. History Of Present Illness: c/o right knee hip and shoulder pain since falling 2 weeks ago??x-rays of all these areas were negative at that time I reviewed the??x-rays??she says she is post to have an MRI of her right knee??I did discuss with her she needs to follow-up with her family doctor for this??pain in case he wants referred to a pain clinic??or an orthopedic doctor Review of Systems: Constitutional:?No??fevers,?No??chills,?No??sweats Eye:?No??recent visual problems ENT:?No??ear pain,?No??nasal congestion,?No??sore throat Respiratory:?No??shortness of breath,?No??cough Cardiovascular:?No??Chest pain,?No??palpitations,?No??syncope Gastrointestinal:?Nonausea,?No??vomiting,?No??diarrhea Genitourinary:?No??hematuria Clemente/Lymph:?No??bruising tendency,?No??swollen lymph glands Endocrine:?No??excessive thirst,??No??excessive hunger Musculoskeletal:??No??back pain,??No??neck pain,??No??joint pain,??No??muscle pain,??No??decreased range of motion complanes of right hip knee and??shoulder pain Integumentary:?No??rash,?No??pruritus,?No??abrasions Neurologic: Alert & oriented X 4 Psychiatric:?No??anxiety,?No??depression Physical Exam Vitals & Measurements T:??36.5?C ??(Oral)?? HR:??74??(Peripheral)?? RR:??18?? BP:??177/90?? SpO2:??100%?? HT:??157.48??cm?? WT:??89.81??kg?? BMI:??36.21?? Pain Score:??8?? O2 Therapy:??Room air?? General: Alert [...] Musculoskeletal: Normal range of motion and strength, some palpation of the right anterior shoulder??right lateral hip??and right anterior knee??no gross deformity soft tissue swelling or ecchymosis??good range of motion Skin: Skin is warm, dry and appropriate for ethnicity, no rashes or lesions. Neurologic: Awake, alert and oriented X4, CN II-XII intact. Psychiatric: Cooperative, appropriate mood and affect. Procedure No Qualifying Data Assessment/Plan Knee pain, right??M25.561 Pain in right hip??M25.551 Pain in right shoulder??M25.511 Patient Discharge Condition good Discharge Disposition home Patient Education Musculoskeletal Pain Joint Pain Hip Pain Follow Up With When Contact Information Follow up with primary care provider Within 24 Hours Additional Instructions: Medication Reconciliation Unchanged amLODIPine (amLODIPine [...] Family History Cancer: Mother. Electronically Signed on 01/14/2024 03:42 CDT Andrew Francis DO Patient Care team information Care Team Personnel Name: Jessee Jones [employer] Position: Physician Member Role: Nurse Practitioner Address: [address] [facility], [address] Name: Latoya Marquez [employer] Position: Physician Member Role: Nurse Practitioner Address: [address] [place] [address]- Name: Leonila Gonzalez [employer] Position: Physician Member Role: Nurse Practitioner Address: [address] [place] [address] Name: Beth Brandt [employer] Position: Physician Member Role: Nurse Practitioner Address: [address] Name: Hermes Ramirez MD Position: Physician Member Role: Informed Provider Address: [address] [facility], [address] Name: Pillo Moe [employer] Position: Physician Member Role: Nurse Practitioner Address: [address] [facility], [facility] [[email or web address]] [address] [facility] Care Team Related Persons Name: STACIA JONES Name: ROBYN JAMA Name: NAIF CHOI Name: MADY CHEN Name: MADY CHEN Insurance Providers Guarantor name: MISHA JACKSON Health Plan Information #: 1 Payer: [employer] Member Number: [id number] Policy Number: Health Plan Information #: 2 Payer: [employer] APPROVED Member Number: [id number] Policy Number: Health Plan Information #: 3 Payer: MISC Workers Comp Member Number: Policy Number:
--- OUTSIDE RECORDS SUMMARY | 2024-03-20 11:48 | XMS_ITS | Continuity of Care Document ---
Author Organization [facility] Address [address] [place] [address] Care Team Providers Care Transitions Manager Name Role Phone Hermes Ramirez Primary Care Physician [phone] Encounter ONOFRE MARILUZ [id number] Date(s): 02/29/24 - 02/29/[address] [address]- [place] Encounter Diagnosis Chronic back pain(Discharge Diagnosis) - 02/29/24 Other chronic pain(Discharge Diagnosis) - 02/29/24 Headache, chronic migraine without aura, intractable(Discharge Diagnosis) - 02/29/24 Discharge Disposition: Home or Self Care Attending [...] from: Title:ED Provider Note Author:Jesus Khan MD Date:02/29/24 Assessment/Plan 1.??Chronic back pain??M54.9 2.??Headache, chronic migraine without aura, intractable??G43.719 Other chronic pain??G89.29 Orders: Benadryl, 50 mg = 1 mL, Intramuscular, Injection, Once, First Dose: 02/29/24 17:00:00 DIAGNOSTIC SALES SPECIALIST, Stop Date: 02/29/24 17:00:00 DIAGNOSTIC SALES SPECIALIST, Physician Stop, Routine morphine, 2 mg = 1 mL, Intramuscular, Injection, Once, First Dose: 02/29/24 17:00:00 DIAGNOSTIC SALES SPECIALIST, Stop Date: 02/29/24 17:00:00 DIAGNOSTIC SALES SPECIALIST, Physician Stop, Routine Phenergan, 25 mg = 1 mL, Intramuscular, Injection, Once, First Dose: 02/29/24 17:00:00 DIAGNOSTIC SALES SPECIALIST, Stop Date: 02/29/24 17:00:00 DIAGNOSTIC SALES SPECIALIST, Physician Stop, Routine Patient Discharge Condition Stable Discharge Disposition Discharge home Patient Education Migraine Headache Chronic Back Pain, Jikz-si-Ugpw Follow Up With When Contact Information Follow up with primary care provider Within 1 week Additional Instructions: Follow-up with pain clinic. ??Continue other home medications. Future Appointments Future Scheduled Tests Radiology* MG [...] Daily, # 30 tab, 11 Refill(s), Pharmacy: [place], [place], 157.48, cm, 01/04/23 15:03:00 CDT, Height/Length [...] 120 cap, 2 Refill(s), Pharmacy: [facility], 157.5, cm,02/06/24 16:22:00 DIAGNOSTIC SALES SPECIALIST, Height, 89.91, kg, 02/06/24 16:28:00 DIAGNOSTIC SALES SPECIALIST, Weight Dosing Start Date: 02/07/24 Status: Ordered LORazepam 0.5 mg oral tablet TAKE ONE TABLET BY MOUTH DAILY NEEDED FOR ANXIETY Start Date: 12/18/20 Status: Ordered metoprolol succinate 100 mg oral capsule, extended release 100 mg = 1 cap, Oral, BID, # 60 cap, 11 Refill(s), Pharmacy: [place], [place], 157.48, cm, 01/04/23 15:03:00 CDT, Height/Length Dosing, 81.65, kg, 01/04/23 15:03:00 CDT, Weight Dosing Start Date: 01/11/23 Status: Ordered Mounjaro 2.5 mg/0.5 mL subcutaneous solution 2.5 mg =, Subcutaneous, every week, rotate injection sites, # 4 EA, 0 Refill(s), Pharmacy: [facility], 157.48, cm, 02/12/24 8:34:00 DIAGNOSTIC SALES SPECIALIST, Height, 91.63, kg, 02/28/24 15:55:00 DIAGNOSTIC SALES SPECIALIST, Weight Dosing Start Date: 02/28/24 Status: Ordered nicotine 21 mg/24 hr transdermal film, extended release 1 patches, Transdermal, Daily, # 14 patches, 1 Refill(s), Pharmacy: [facility], 157.48, cm, 01/01/24 14:49:00 CDT, Height, 87.09, kg, 01/01/24 14:53:00 CDT, Weight Dosing Start Date: 01/01/24 Status: Ordered pantoprazole 40 mg oral delayed release tablet 1 tab, Oral, Daily, # 90 tab, 0 Refill(s), [facility] 157.48, cm, 06/07/23 16:07:00 CDT, Height, 89.36, kg, 06/19/23 15:32:00 CDT, Weight Dosing Start Date: 06/20/23 Status: Ordered predniSONE 5 mg oral tablet 5 mg = 1 tab, Oral, Daily, with food or milk, # 30 tab, 0 Refill(s) Start Date: 02/06/24 Status: Ordered sucralfate 1 g oral tablet 1 tab, Oral, QID, # 360 tab, 0 Refill(s), [facility] 157.48, cm, 08/29/23 14:22:00 CDT, Height, 88, kg, 08/29/23 14:27:00 CDT, Weight Dosing Start Date: 09/05/23 Status: Ordered Topamax 25 mg oral tablet 25 mg = 1 tab, Oral, BID, # 60 tab, 2 Refill(s), [facility], 157.48, cm, 02/12/24 8:34:00 DIAGNOSTIC SALES SPECIALIST, Height, 91.63, kg, 02/28/24 15:55:00 DIAGNOSTIC SALES SPECIALIST, Weight Dosing Start Date: 02/28/24 Status: Ordered Topamax 50 mg oral tablet 50 mg = 1 tab, Oral, BID, # 60 tab, 2 Refill(s), [facility] 157.48, cm, 02/12/24 8:34:00 DIAGNOSTIC SALES SPECIALIST, Height, 91.63, kg, 02/28/24 15:55:00 DIAGNOSTIC SALES SPECIALIST, Weight Dosing Start Date: 02/28/24 Status: Ordered venlafaxine 37.5 mg oral capsule, extended release 1 cap, Oral, Daily, # 30 cap, 2 Refill(s), [id number] 157.48, cm, 02/12/24 8:34:00 DIAGNOSTIC SALES SPECIALIST, Height, 91.63, kg, 02/28/24 15:55:00 DIAGNOSTIC SALES SPECIALIST, Weight Dosing Start Date: 02/28/24 Status: Ordered Mental Status 02/29/24 Eye Opening Response [place] Spontaneous ly Best Verbal Response [place] Oriented Best Motor Response [place] Obeymaryjo chojaymie ds Yanira Coma Score 15 Problem List [...] [35.8-37.3 Deg C] 37 De g C (02/29/24 3:55 PM) Peripheral Pulse Rate [60-100 bpm] 75 bp m (02/29/24 5:08 PM) 84 bpm (02/29/24 3:55 PM) Respiratory Rate [-24 br/min] 16 br/mi n (02/29/24 3:55 PM) Blood Pressure [90-120/60-80 mmHg] 141/8 3mmHg *HI* (02/29/24 5:08 PM) 138/83mmHg *HI* (02/29/24 3:55 PM) Mean Arterial Pressure, Cuff [65-140 mmH g] 102 mmHg (02/29/24 5:08 PM) 101 mmHg (02/29/24 3:55 PM) Weight 91.44 kg (02/29/24 3:55 PM) Weight Dosing 91.440 kg (02/29/24 3:55 PM) Height 157.48 cm (02/29/24 3:55 PM) Body Mass Index 36.87 kg/m2 (02/29/24 3:55 PM) Social History Social History Type Response Tobacco Current everyday tob acco user Tobacco Use:. Sex Sex Representation Female (finding) Hospital Discharge Instructions Patient Education 02/29/2024 16:36:52 Migraine Headache Migraine Headache A migraine headache [...] these instructions at home: Medicines ??? Take hhvr-yqw-grykvdg and prescription medicines only as told by your health care provider. ??? Ask your health care provider if the medicine prescribed to you: ??? Requires you to avoid driving or using heavy machinery. ??? Can cause constipation. You may need to take these actions to prevent or treat constipation: ??? Drink enough fluid to keep your urine pale yellow. ??? Take jbcf-vml-tcxyonn or prescription medicines. ??? Eat foods that [...] provider. Document Revised: 08/18/2022 Document Reviewed: 04/18/2019 [employer] Patient Education ?? 2022 [employer] 02/29/2024 16:36:39 Chronic Back Pain, Njov-gh-Ucmu Chronic Back Pain Chronic back pain is [...] them backward. ??? Do not sit or sld inclusion teacher one place for too long. ??? Take [...] body. ??? Avoid twisting. Medicines ??? Take cbjs-drf-lewdpet and prescription medicines only as told by [...] your pee (urine) pale yellow. ??? Take etcd-lds-rqqrmty or prescription medicines. ??? Eat foods that [...] provider. Document Revised: 10/24/2022 Document Reviewed: 10/24/2022 [employer] Patient Education ?? 2022 [employer]. Follow Up Care 02/29/2024 15:52:32 With:Follow up with primary care provider Address: When:1 week Comments:Follow-up with pain clinic. ??Continue other home medications. Physician Emergency department Note * Jesus Khan MD: PERFORM Event Display: ED Note Physician Authored Date: [id number] MISHA JACKSON :1980 Age:43 years Sex:Female Visit Date:02/29/2024 Primary Care Physician: Hermes Ramirez MD Basic Information Time Seen: Jesus Khan MD / 02/29/2024 16:22 Chief Complaint back pain and migraine since this am, unrelieved by tylenol this am and at 1300. States consistent with chronic back pain and migraine, sees pain clinic 03/26/24. History Of Present Illness: 43 years old female??comes in complaining of back pain??and migraine. ??History of chronic migraineheadaches??also back pain.?? States she has an appointment??for March to see the pain clinic.?? Has history of liver and renal transplant.?? States??her back has been??bothering her more since??she fell?in December.?? Also shoulders have been bothering her.?? Patient comes frequently??to the ERfor??migraines;??only medicine helped to relieve some discomfort in her back and the migraines is??morphine. Review of Systems: Constitutional:?No??fevers,?No??chills,?No??sweats;??migraine headache Eye:?No??recent visual problems ENT:?No??ear pain,?No??nasal congestion,?No??sore throat Respiratory:?No??shortness of breath,?No??cough Cardiovascular:?No??Chest pain,?No??palpitations,?No??syncope Gastrointestinal:?Nonausea,?No??vomiting,?No??diarrhea Genitourinary:?No??hematuria Clemente/Lymph:?No??bruising tendency,?No??swollen lymph glands Endocrine:?No??excessive thirst,??No??excessive hunger Musculoskeletal:??Positive for??back pain,??No??neck pain,??No??joint pain,??No??muscle pain,??No??decreased range of motion Integumentary:?No??rash,?No??pruritus,?No??abrasions Neurologic: Alert & oriented X 4 Psychiatric:?No??anxiety,?No??depression Physical Exam Vitals & Measurements T:??37?C ??(Oral)?? HR:??84??(Peripheral)?? RR:??16?? BP:??138/83?? SpO2:??98%?? HT:??157.48??cm?? WT:??91.44??kg?? BMI:??36.87?? O2 Therapy:??Room air?? General: Alert and oriented, [...] affect Medical Decision Making: Phenergan 25 mg IM;??Benadryl 50 mg IM; morphine sulfate 2 mg IM. Procedure No Qualifying Data Assessment/Plan 1.??Chronic back pain??M54.9 2.??Headache, chronic migraine without aura, intractable??G43.719 Other chronic pain??G89.29 Orders: Benadryl, 50 mg = 1 mL, Intramuscular, Injection, Once, First Dose: 02/29/24 17:00:00 DIAGNOSTIC SALES SPECIALIST, Stop Date: 02/29/24 17:00:00 DIAGNOSTIC SALES SPECIALIST, Physician Stop, Routine morphine, 2 mg = 1 mL, Intramuscular, Injection, Once, First Dose: 02/29/24 17:00:00 DIAGNOSTIC SALES SPECIALIST, Stop Date: 02/29/24 17:00:00 DIAGNOSTIC SALES SPECIALIST, Physician Stop, Routine Phenergan, 25 mg = 1 mL, Intramuscular, Injection, Once, First Dose: 02/29/24 17:00:00 DIAGNOSTIC SALES SPECIALIST, Stop Date: 02/29/24 17:00:00 DIAGNOSTIC SALES SPECIALIST, Physician Stop, Routine Patient Discharge Condition Stable Discharge Disposition Discharge home Patient Education Migraine Headache Chronic Back Pain, Rbpd-gu-Rlri Follow Up With When Contact Information Follow up with primary care provider Within 1 week Additional Instructions: Follow-up with pain clinic. ??Continue other home medications. Medication Reconciliation Unchanged amLODIPine [...] Attestation Follow-up with PCP Electronically Signed on 02/29/2024 16:38 DIAGNOSTIC SALES SPECIALIST Jesus Khan MD Patient Care team information Care Team Personnel Name: Jessee Jones COLLECTIONS ASSOCIATE Position: Physician Member Role: Nurse Practitioner Address: [address] [place] [address], [facility] [address] Name: Latoya Marquez COLLECTIONS ASSOCIATE Position: Physician Member Role: Nurse Practitioner Address: [address] [place] [address] Name: Leonila Gonzalez COLLECTIONS ASSOCIATE Position: Physician Member Role: Nurse Practitioner Address: [address] [place] [address] Name: Beth Brandt COLLECTIONS ASSOCIATE Position: Physician Member Role: Nurse Practitioner Address: [address] [place] [address] Name: Hermes Ramirez MD Position: Physician Member Role: Informed Provider Address: [address] [place] [address], [address] Name: Pillo Moe COLLECTIONS ASSOCIATE Position: Physician Member Role: Nurse Practitioner Address: [address] [place] [address], [facility] Care Team Related Persons Name: STACIA JONES Name: ROBYN JAMA Name: NAIF CHOI Name: MADY CHEN Name: MADY CHEN Insurance Providers Guarantor name: MISHA JACKSON Health Plan Information #: 1 Payer: [employer] Member Number: [id number] Policy Number: NA Health Plan Information #: 2 Payer: [employer] Member Number: [id number] Policy Number: NA
--- OUTSIDE RECORDS SUMMARY | 2024-03-20 11:49 | XMS_ITS | Continuity of Care Document ---
Author Organization [facility] Address [address] [place] [address] Care Team Providers Care Associate Professor Of History Name Role Phone Hermes Ramirez Primary Care Physician [phone] Encounter ONOFRE [facility] [id number] Date(s): 08/24/21 - 08/24/21 [place] [address] [place] [address] [place] Discharge Disposition: Home or [...] BID, # 180 tab, 3 Refill(s), Pharmacy: [place], [place], 157, cm, 10/22/20 21:26:00 CDT, Height/Length [...] Personnel Name: Hermes Ramirez MD Address: [address] [place] [address], [address] [place] [address]-
--- OUTSIDE RECORDS SUMMARY | 2024-03-20 11:49 | XMS_ITS | Continuity of Care Document ---
Author Organization [facility] Address [address] [place] [address] Care Team Providers Care Desktop Operator Name Role Phone Hermes Ramirez Primary Care Physician [phone] Encounter ONOFREEver MCGRAW [id number] Date(s): 03/01/22 - 03/01/[address] [address] [place] Encounter Diagnosis Intractable migraine(Discharge Diagnosis) - 03/01/22 Sore throat(Discharge Diagnosis) - 03/01/22 Discharge Disposition: Home or [...] wheezing, # 6.7 g, 0 Refill(s), Pharmacy: [facility] [place], [place], 73, cm, 09/13/21 23:53:00 CDT, Height/Length [...] needed, # 12 cap, 0 Refill(s), Pharmacy: [place], [place], 157, cm, 11/04/21 20:02:00 CDT, Height/Length [...] 18:45:00CST, Height/Length Dosing, 72.57, kg, 02/07/22 18:45:00 FOUNDER & CEO, Weight Dosing Start Date: 02/13/22 Status: Ordered [...] nausea/vomiting, # 20 tab, 0 Refill(s), Pharmacy: [facility] [place], [place], [address], cm, 09/29/21 23:03:00 CDT, Height/Length [...] Laboratory List Name Date Strep A Screen 03/01/22 Most recent to oldest [Reference Range]: 1 Streptococcus A [Negative] Negative (03/01/22 10:25 PM) Vital Signs Most recent to oldest [Reference Range]: 1 2 Temperature Oral [35.8-37.3 Deg C] 37 De g C (03/01/22 9:25 PM) Peripheral Pulse Rate [60-100 bpm] 79 bp m (03/01/22 10:55 PM) 84 bpm (03/01/22 9:25 PM) Respiratory Rate [12-24 br/min] 18 br/mi n (03/01/22 10:55 PM) 20 br/min (03/01/22 9:25 PM) Blood Pressure [90-140/60-90 mmHg] 124/8 4mmHg (03/01/22 10:55 PM) 126/83mmHg (03/01/22 9:25 PM) Weight Dosing 75.00 kg (03/01/22 9:41 PM) Weight Estimated 75.00 kg (03/01/22 9:25 PM) Height/Length Dosing 157.000 cm (03/01/22 9:41 PM) Height/Length Estimated 157.000 cm (03/01/22 9:25 PM) Social History Social History Type Response Tobacco Current everyday tob acco user Tobacco Use:. Sex Hospital Discharge Instructions Patient Education 03/01/2022 22:30:55 Sore Throat, Kcah-ji-Zcrr Sore Throat When you have a sore throat, your throat may feel: ??? Tender. ??? Burning. ??? Irritated. ??? Scratchy. ??? Painful when you swallow. ??? Painful when you talk. Many things can cause a sore throat, such as: ??? An infection. ??? Allergies. ??? Dry air. ??? Smoke or pollution. ??? Radiation treatment for cancer. ??? Gastroesophageal reflux disease (GERD). ??? A tumor. A sore throat can be the first sign of another sickness. It can happen with other problems, like: ??? Coughing. ??? Sneezing. ??? Fever. ??? Swelling of the glands in the neck. Most sore throats go away without treatment. Follow these instructions at home: Medicines ??? Take thua-onb-biytaob and prescription medicines only as told by your doctor. ??? Children often get sore throats. Do not give your child aspirin. ??? Use throat sprays to soothe your throat as told by your health care provider. Managing pain To help with pain: ??? Sip warm liquids, such as broth, herbal tea, or warm water. ??? Eat or drink cold or frozen liquids, such as frozen ice pops. ??? Rinse your mouth (gargle) with a salt water mixture 3???4 times a day or as needed. ??? To make salt water, dissolve ?1 tsp (3???6 g) of salt in 1 cup (237 mL) of warm water. ??? Do not swallow this mixture. ??? Suck on hard candy or throat lozenges. ??? Put a cool-mist humidifier in your bedroom at night. ??? Sit in the bathroom with the door closed for 5???10 minutes while you run hot water in the shower. General instructions ??? Do not smoke or use any products that contain nicotine or tobacco. If you need help quitting, ask your doctor. ??? Get plenty of rest. ??? Drink enough fluid to keep your pee (urine) pale yellow. ??? Wash your hands often for at least 20 seconds with soap and water. If soap and water are not available, use hand gimp tacker. Contact a doctor if: ??? You have a fever for more than 2???3 days. ??? You keep having symptoms for more than 2???3 days. ??? Your throat does not get better in 7 days. ??? You have a fever and your symptoms suddenly get worse. ??? Your child who is 3 months to 3 years old has a temperature of 102.2??F (39??C) or higher. Get help right away if: ??? You have trouble breathing. ??? You cannot swallow fluids, soft foods, or your spit. ??? You have swelling in your throat or neck that gets worse. ??? You feel like you may vomit (nauseous) and this feeling lasts a long time. ??? You cannot stop vomiting. These symptoms may be an emergency. Get help right away. Call your local emergency services ([facility] [place] ??? Do not wait to see if the symptoms will go away. ??? Do not drive yourself to the hospital. Summary ??? A sore throat is a painful, burning, irritated, or scratchy throat. Many things can cause a sore throat. ??? Take bpgc-dhn-voikblp medicines only as told by your doctor. ??? Get plenty of rest. ??? Drink enough fluid to keep your pee (urine) pale yellow. ??? Contact a doctor if your symptoms get worse or your sore throat does not get better within 7 days. This information is not intended to replace advice given to you by your health care provider. Make sure you discuss any questions you have with your health care provider. Document Revised: 06/02/2021 Document Reviewed: 06/02/2021 [employer] Patient Education ?? 2021 [employer]. 03/01/2022 22:30:51 Chronic Migraine Headache, Zave-di-Vvjg Chronic Migraine Headache A migraine headache is [...] these instructions at home: Medicines ??? Take bmck-huu-kmqkpmx and prescription medicines only as told by [...] Reviewed: 04/22/2020 [employer] Patient Education ?? 2021 [employer] Follow Up Care 03/01/2022 21:34:50 With:Hermes Ramirez MD Address: [address] [place] [address], [address] [place] [address]- When:1 week Comments:Continue home medications. ??Return to ED if symptoms worsen. Physician Emergency department Note * Jesus Khan MD: PERFORM Event Display: ED Note Physician Authored Date: MISHA JACKSON :1980 Age:41 years Sex:Female Visit Date:03/01/2022 Primary Care Physician: Hermes Ramirez MD Basic Information Time Seen: Jesus Khan MD / 03/01/2022 22:19 Chief Complaint Pt arrives with c/o migraine with blurry vision and R sided sore throat starting today. ??Pt took fioricet. History Of Present Illness: Patient comes in complaining of a sore throat; also??chronic migraine headaches.?? Was in the ED??2nights ago??with migraine headaches.?? Patient??comes in frequently??with??migraines. Review of Systems: Constitutional:?No??fevers,?No??chills,?No??sweats Eye:?No??recent visual problems ENT:?No??ear pain,?No??nasal congestion,?Positive for??sore throat Respiratory:?No??shortness of breath,?No??cough Cardiovascular:?No??Chest pain,?No??palpitations,?No??syncope Gastrointestinal:?Nonausea,?No??vomiting,?No??diarrhea Genitourinary:?No??hematuria Clemente/Lymph:?No??bruising tendency,?No??swollen lymph glands Endocrine:?No??excessive thirst,??No??excessive hunger Musculoskeletal:??No??back pain,??No??neck pain,??No??joint pain,??No??muscle pain,??No??decreased range of motion Integumentary:?No??rash,?No??pruritus,?No??abrasions Neurologic: Alert & oriented X 4 Psychiatric:?No??anxiety,?No??depression Physical Exam Vitals & Measurements T:??37?C ??(Oral)?? HR:??84??(Peripheral)?? RR:??20?? BP:??126/83?? SpO2:??99%?? HT:??157.000??cm?? WT:??75.00??kg??(Estimated)?? Pain Score:??8?? O2 Therapy:??Room air?? [...] appropriate mood and affect Medical Decision Making: Benadryl??50 mg IM. ??Phenergan 25 mg IM. Procedure No Qualifying Data Assessment/Plan 1.??Intractable migraine??G43.919 2.??Sore throat??J02.9 Orders: Benadryl, 50 mg = 1 mL, IM, Injection, Once, First Dose: 03/01/22 22:26:00 FOUNDER & CEO, Stop Date: 03/01/2222:26:00 FOUNDER & CEO, Physician Stop Phenergan, 25 mg = 1 mL, IM, Injection, Once, First Dose: 03/01/22 22:26:00 FOUNDER & CEO, Stop Date: 03/01/22 22:26:00 FOUNDER & CEO, Physician Stop Patient Discharge Condition Stable Discharge Disposition Discharge home. ??Strep A screen was negative. Patient Education Sore Throat, Ctmb-ia-Tckw Chronic Migraine Headache, Cjrq-fz-Cepg Follow Up With When Contact Information Hermes Ramirez MD Within [address] [place] [address], [address] [place] [address]- Additional Instructions: Continue home medications. ??Return to ED if symptoms [...] Disease?? LATEST RESULTS?? HISTORICAL RESULTS?? Streptococcus A?? 03/01/22 22:25?? Negative?? 09/09/21?? Negative? Attending Attestation Follow-up with PCP. Electronically Signed on 03/01/22 10:32 PM Jesus Khan MD Patient Care team information Personnel Name: Hermes Ramirez MD Address: Address: [facility], [address] [place] [address]
--- OUTSIDE RECORDS SUMMARY | 2024-03-20 11:49 | XMS_ITS | Continuity of Care Document ---
Author Organization [facility] Address [address] [place] [address] Care Team Providers Care Emg Technician Name Role Phone Hermes Ramirez Primary Care Physician [phone] Encounter [facility] [id number] Date(s): 03/07/24 - 03/07/24 [address] [place] [address] [place] [address]- [place] Encounter Diagnosis Other chronic pain(Discharge Diagnosis) - 03/07/24 Acute on chronic back pain(Discharge Diagnosis) - 03/07/24 Discharge Disposition: Home or Self Care Attending [...] Extracted from: Title:ED Provider Note Author:Andrew Francis Date:03/07/24 Assessment/Plan Acute on chronic back pain??M54.9 Other chronic pain??G89.29 Orders: Discharge Patient, 03/07/24 20:16:00 ROAD CUTTER, Home with Family Care Saline Lock Insert, 03/07/24 18:28:00 ROAD CUTTER, Once, Stop date 03/07/24 18:28:00 ROAD CUTTER Patient Discharge Condition good Discharge Disposition home Patient Education Chronic Back Pain, Cydp-fc-Owfv Back Exercises Follow Up With When Contact Information Follow [...] Daily, # 30 tab, 11 Refill(s), Pharmacy: [place], [place], 157.48, cm, 01/04/23 15:03:00 CDT, Height/Length [...] # 120 cap, 2 Refill(s), Pharmacy: [id number], 157.5, cm,02/06/24 16:22:00 ROAD CUTTER, Height, 89.91, kg, 02/06/24 16:28:00 ROAD CUTTER, Weight Dosing Start Date: 02/07/24 Status: Ordered Quantity: 120.0 Unit: cap Repeat number: 3 LORazepam 0.5 mg oral tablet TAKE ONE TABLET BY MOUTH DAILY NEEDED FOR ANXIETY Start Date: 12/18/20 Status: Ordered Repeat number: 1 metoprolol succinate 100 mg oral capsule, extended release 100 mg = 1 cap, Oral, BID, # 60 cap, 11 Refill(s), [facility] [place] 157.[place], cm, 01/04/23 15:03:00 CDT, Height/Length Dosing, 81.65, kg, 01/04/23 15:03:00 CDT, Weight Dosing Start Date: 01/11/23 Status: Ordered Quantity: 60.0 Unit: cap Repeat number: 12 Mounjaro 2.5 mg/0.5 mL subcutaneous solution 2.5 mg =, Subcutaneous, every week, rotate injection sites, # 4 EA, 0 Refill(s), Pharmacy: [id number], 157.48, cm, 02/12/24 8:34:00 ROAD CUTTER, Height, 91.63, kg, 02/28/24 15:55:00 ROAD CUTTER, Weight Dosing Start Date: 02/28/24 Status: Ordered Quantity: 4.0 Unit: EA Repeat number: 1 nicotine 21 mg/24 hr transdermal film, extended release 1 patches, Transdermal, Daily, # 14 patches, 1 Refill(s), Pharmacy: [id number], 157.48, cm, 01/01/24 14:49:00 CDT, Height, 87.09, kg, 01/01/24 14:53:00 CDT, Weight Dosing Start Date: 01/01/24 Status: Ordered Quantity: 14.0 Unit: patches Repeat number: 2 Indication: Pain in right knee pantoprazole 40 mg oral delayed release tablet 1 tab, Oral, Daily, # 90 tab, 0 Refill(s), Pharmacy: [id number], 157.48, cm, 06/07/23 16:07:00 CDT, Height, 89.36, [...] 0 Refill(s), Pharmacy: [id number], 157.48, cm, 08/29/23 14:22:00 CDT, Height, 88, kg, 08/29/23 14:27:00 CDT, Weight Dosing Start Date: 09/05/23 Status: Ordered Quantity: 360.0 Unit: tab Repeat number: 1 Topamax 25 mg oral tablet 25 mg = 1 tab, Oral, BID, # 60 tab, 2 Refill(s), Pharmacy: [id number], 157.48, cm, 02/12/24 8:34:00 ROAD CUTTER, Height, 91.63, kg, 02/28/24 15:55:00 ROAD CUTTER, Weight Dosing Start Date: 02/28/24 Status: Ordered Quantity: 60.0 Unit: tab Repeat number: 3 Topamax 50 mg oral tablet 50 mg = 1 tab, Oral, BID, # 60 tab, 2 Refill(s), Pharmacy: [id number], 157.48, cm, 02/12/24 8:34:00 ROAD CUTTER, Height, 91.63, kg, 02/28/24 15:55:00 ROAD CUTTER, Weight Dosing Start Date: 02/28/24 Status: Ordered Quantity: 60.0 Unit: tab Repeat number: 3 venlafaxine 37.5 mg oral capsule, extended release 1 cap, Oral, Daily, # 30 cap, 2 Refill(s), Pharmacy: [id number], 157.48, cm, 02/12/24 8:34:00 ROAD CUTTER, Height, 91.63, kg, 02/28/24 15:55:00 ROAD CUTTER, Weight Dosing Start Date: 02/28/24 Status: [...] [35.8-37.3 Deg C] 37 De g C (03/07/24 5:43 PM) Heart Rate Monitored [60-100 bpm] 82 bpm (03/07/24 5:43 PM) Respiratory Rate [-24 br/min] 18 br/mi n (03/07/24 5:43 PM) Blood Pressure [90-120/60-80 mmHg] 136/8 2mmHg *HI* (03/07/24 5:43 PM) Mean Arterial Pressure, Cuff [65-140 mmH g] 100 mmHg (03/07/24 5:43 PM) Weight 86.18 kg (03/07/24 5:43 PM) Weight Dosing 86.180 kg (03/07/24 5:43 PM) Height 157.48 cm (03/07/24 5:43 PM) Body Mass Index 34.75 kg/m2 (03/07/24 5:43 PM) Social History Social History Type Response Tobacco Current everyday tob acco user Tobacco Use:. Sex Sex Representation Female (finding) Hospital Discharge Instructions Patient Education 03/07/2024 20:15:43 Chronic Back Pain, Zsmn-ec-Dcto Chronic Back Pain Chronic back pain is [...] them backward. ??? Do not sit or financial services agent one place for too long. ??? Take [...] body. ??? Avoid twisting. Medicines ??? Take cgew-oxr-bqhyowt and prescription medicines only as told by [...] your pee (urine) pale yellow. ??? Take jroc-yfn-nlpbcgf or prescription medicines. ??? Eat foods that [...] provider. Document Revised: 10/24/2022 Document Reviewed: 10/24/2022 [employer] Patient Education ?? 2022 [employer] 03/07/2024 20:15:43 Back Exercises Back Exercises The following exercises strengthen the muscles that help to support the trunk (torso) and back. They also help to keep the lower back flexible. Doing these exercises can help to prevent or lessen existing low back pain. ??? If you have back pain or discomfort, try doing these exercises 2???3 times each day or as told by your health care provider. ??? As your pain improves, do them once each day, but increase the number of times that you repeat the steps for each exercise (do more repetitions). ??? To prevent the recurrence of back pain, continue to do these exercises once each day or as toldby your health care provider. Do exercises exactly as told by your health care provider and adjust them as directed. It is normalto feel mild stretching, pulling, tightness, or discomfort as you do these exercises, but you should stop right away if you feel sudden pain or your pain gets worse. Exercises Single knee to chest Repeat these steps 3???5 times for each le. Lie on your back on a firm bed or the floor with your legs extended. 2. Bring one knee to your chest. Your other leg should stay extended and in contact with the floor. 3. Hold your knee in place by grabbing your knee or thigh with both hands and hold. 4. Pull on your knee until you feel a gentle stretch in your lower back or buttocks. 5. Hold the stretch for 10???30 seconds. 6. Slowly release and straighten your leg. Pelvic tilt Repeat these steps 5???10 times: 1. Lie on your back on a firm bed or the floor with your legs extended. 2. Bend your knees so they are pointing toward the ceiling and your feet are flat on the floor. 3. Tighten your lower abdominal muscles to press your lower back against the floor. This motion will tilt your pelvis so your tailbone points up toward the ceiling instead of pointing to your feet orthe floor. 4. With gentle tension and even breathing, hold this position for 5???10 seconds. Cat-cow Repeat these steps until your lower back becomes more flexible: 1. Get into a ttieh-sdx-pkvfu position on a firm bed or the floor. Keep your hands under your shoulders, and keep your knees under your hips. You may place padding under your knees for comfort. 2. Let your head hang down toward your chest. Contract your abdominal muscles and point your tailbone toward the floor so your lower back becomes rounded like the back of a cat. 3. Hold this position for 5 seconds. 4. Slowly lift your head, let your abdominal muscles relax, and point your tailbone up toward the ceiling so your back forms a sagging arch like the back of a cow. 5. Hold this position for 5 seconds. Press-ups Repeat these steps 5???10 times: 1. Lie on your abdomen (face-down) on a firm bed or the floor. 2. Place your palms near your head, about shoulder-width apart. 3. Keeping your back as relaxed as possible and keeping your hips on the floor, slowly straighten your arms to raise the top half of your body and lift your shoulders. Do not use your back muscles toraise your upper torso. You may adjust the placement of your hands to make yourself more comfortable. 4. Hold this position for 5 seconds while you keep your back relaxed. 5. Slowly return to lying flat on the floor. Bridges Repeat these steps 10 times: 1. Lie on your back on a firm bed or the floor. 2. Bend your knees so they are pointing toward the ceiling and your feet are flat on the floor. Your arms should be flat at your sides, next to your body. 3. Tighten your buttocks muscles and lift your buttocks off the floor until your waist is at almostthe same height as your knees. You should feel the muscles working in your buttocks and the back ofyour thighs. If you do not feel these muscles, slide your feet 1???2 inches (2.5???5 cm) farther away from your buttocks. 4. Hold this position for 3???5 seconds. 5. Slowly lower your hips to the starting position, and allow your buttocks muscles to relax completely. If this exercise is too easy, try doing it with your arms crossed over your chest. Abdominal crunches Repeat these steps 5???10 times: 1. Lie on your back on a firm bed or the floor with your legs extended. 2. Bend your knees so they are pointing toward the ceiling and your feet are flat on the floor. 3. Cross your arms over your chest. 4. Tip your chin slightly toward your chest without bending your neck. 5. Tighten your abdominal muscles and slowly raise your torso high enough to lift your shoulder blades a tiny bit off the floor. Avoid raising your torso higher than that because it can put too much stress on your lower back and does not help to strengthen your abdominal muscles. 6. Slowly return to your starting position. Back lifts Repeat these steps 5???10 times: 1. Lie on your abdomen (face-down) with your arms at your sides, and rest your forehead on the floor. 2. Tighten the muscles in your legs and your buttocks. 3. Slowly lift your chest off the floor while you keep your hips pressed to the floor. Keep the back of your head in line with the curve in your back. Your eyes should be looking at the floor. 4. Hold this position for 3???5 seconds. 5. Slowly return to your starting position. Contact a health care provider if: ??? Your back pain or discomfort gets much worse when you do an exercise. ??? Your worsening back pain or discomfort does not lessen within 2 hours after you exercise. If you have any of these problems, stop doing these exercises right away. Do not do them again unless your health care provider says that you can. Get help right away if: ??? You develop sudden, severe back pain. If this happens, stop doing the exercises right away. Do not do them again unless your health care provider says that you can. This information is not intended to replace advice given to you by your health care provider. Make sure you discuss any questions you have with your health care provider. Document Revised: 08/31/2021 Document Reviewed: 05/19/2021 [employer] Patient Education ?? 2022 [employer] Follow Up Care 03/07/2024 17:44:54 With:Follow up with primary care provider Address:Unknown When:1 to 2 days Physician Emergency department Note * Shumake, Andrew M DO: PERFORM, MODIFY Event Display: ED Note Physician Authored Date: [id number] MISHA JACKSON :1980 Age:43 years Sex:Female Visit Date:03/07/2024 Primary Care Physician: Hermes Ramirez MD Basic Information Time Seen: Andrew Francis DO / 03/07/2024 17:48 Chief Complaint pt c/o chronic low back pain states lumbar rates 7 took tramadol prehosp no relief History Of Present Illness: Planes of??chronic low back pain??states she is to see a??pain specialist March 26??she is a frequent visitor to the emergency room for different kinds of pains??she has a lot of allergies and thereare a lot of medicine she cannot take because she has had liver and kidney transplants Review of Systems: Constitutional:?No??fevers,?No??chills,?No??sweats Eye:?No??recent visual problems ENT:?No??ear pain,?No??nasal congestion,?No??sore throat Respiratory:?No??shortness of breath,?No??cough Cardiovascular:?No??Chest pain,?No??palpitations,?No??syncope Gastrointestinal:?Nonausea,?No??vomiting,?No??diarrhea Genitourinary:?No??hematuria Clemente/Lymph:?No??bruising tendency,?No??swollen lymph glands Endocrine:?No??excessive thirst,??No??excessive hunger Musculoskeletal:??No??back pain,??No??neck pain,??No??joint pain,??No??muscle pain,??No??decreased range of motion c/o low back pain Integumentary:?No??rash,?No??pruritus,?No??abrasions Neurologic: Alert & oriented X 4 Psychiatric:?No??anxiety,?No??depression Physical Exam Vitals & Measurements T:??37?C ??(Oral)?? HR:??82??(Monitored)?? RR:??18?? BP:??136/82?? SpO2:??100%?? HT:??157.48??cm?? WT:??86.18??kg?? BMI:??34.75?? Pain Score:??7?? O2 Therapy:??Room air?? General: Alert [...] of motion and strength, no tenderness or swelling.mod tenderness on palpation musculature low back with spasm Skin: Skin is warm, dry and appropriate for ethnicity, no rashes or lesions. Neurologic: Awake, alert and oriented X4, CN II-XII intact. Psychiatric: Cooperative, appropriate mood and affect. Procedure No Qualifying Data Assessment/Plan Acute on chronic back pain??M54.9 Other chronic pain??G89.29 Orders: Discharge Patient, 03/07/24 20:16:00 ROAD CUTTER, Home with Family Care Saline Lock Insert, 03/07/24 18:28:00 ROAD CUTTER, Once, Stop date 03/07/24 18:28:00 RO[address] CUTTER Patient Discharge Condition good Discharge Disposition home Patient Education Chronic Back Pain, Fvox-gt-Szgk Back Exercises Follow Up With When Contact Information Follow [...] Family History Cancer: Mother. Electronically Signed on 03/07/2024 20:16 ROAD CUTTER Andrew Francis DO Patient Care team information Care Team Personnel Name: Jessee Jones CLINICAL INFORMATICS STRATEGIST Position: Physician Member Role: Nurse Practitioner Address: [address] [facility], [address] Telecom: Name: Latoya Marquez CLINICAL INFORMATICS STRATEGIST Position: Physician Member Role: Nurse Practitioner Address: [address] Telecom: Name: Leonila Gonzalez CLINICAL INFORMATICS STRATEGIST Position: Physician Member Role: Nurse Practitioner Address: [address] Telecom: Name: Beth Brandt CLINICAL INFORMATICS STRATEGIST Position: Physician Member Role: Nurse Practitioner Address: [address] [place] [address] [place] [address] Telecom: Name: Hermes Ramirez MD Position: Physician Member Role: Informed Provider [facility] [address] [facility] [address] Telecom: Name: Pillo Moe CLINICAL INFORMATICS STRATEGIST Position: Physician Member Role: Nurse Practitioner [facility] [address] [facility] [address] [facility] Telecom: Care Team Related Persons Name: STACIA JONES Name: ROBYN JAMA Name: NAIF CHOI Name: MADY CHEN Name: MADY CHEN Insurance Providers Guarantor name: MISHA JACKSON Health Plan Information #: 1 Payer: [employer] Member Number: [id number] Policy Number: NA Group Number: NA Health Plan Information #: 2 Payer: [employer] Member Number: [id number] Policy Number: NA Group Number: NA
--- OUTSIDE RECORDS SUMMARY | 2024-03-20 11:49 | XMS_ITS | Continuity of Care Document ---
Author Organization [facility] Address [address] [place] [address] Care Team Providers Care Motel Manager Name Role Phone Hermes Ramirez Primary Care Physician [phone] Encounter [facility] [id number] Date(s): 02/02/24 - 02/02/[address] [address]- [place] Encounter Diagnosis Chronic pain in right shoulder(Discharge Diagnosis) - 02/02/24 Other chronic pain(Discharge Diagnosis) - 02/02/24 Discharge Disposition: Home or Self Care Attending [...] Extracted from: Title:ED Provider Note Author:Andrew Francis Date:02/02/24 Assessment/Plan Chronic pain in right shoulder??M25.511 Other chronic pain??G89.29 Orders: Benadryl, 50 mg = 2 cap, Oral, Cap, Once, First Dose: 02/02/24 12:36:00 FLOWER STRIPPER, Stop Date: 02/02/24 12:36:00 FLOWER STRIPPER, Physician Stop, NOW Benadryl 25 mg oral capsule, 50 mg = 2 cap, Oral, Once, 0 Refill(s) morphine, 2 mg = 1 mL, Intramuscular, Injection, Once, First Dose: 02/02/24 12:36:00 FLOWER STRIPPER, Stop Date: 02/02/24 12:36:00 FLOWER STRIPPER, Physician Stop, NOW Patient Discharge Condition good Discharge Disposition home Patient Education Shoulder Pain Follow Up With [...] Daily, # 30 tab, 11 Refill(s), Pharmacy: [place], [place], 157.48, cm, 01/04/23 15:03:00 CDT, Height/Length [...] BID, # 120 cap, 2 Refill(s), Pharmacy: [id number] [place], 157.48, cm, 07/23/23 17:59:00 CDT, Height, [...] BID, # 60 cap, 11 Refill(s), Pharmacy: [place], [place], 157.48, cm, 01/04/23 15:03:00 CDT, Height/Length Dosing, 81.65, kg, 01/04/23 15:03:00 CDT, Weight Dosing Start Date: 01/11/23 Status: Ordered nicotine 21 mg/24 hr transdermal film, extended release 1 patches, Transdermal, Daily, # 14 patches, 1 Refill(s), [id number] 157.48, cm, 01/01/24 14:49:00 CDT, Height, 87.09, kg, 01/01/24 14:53:00 CDT, Weight Dosing Start Date: 01/01/24 Status: Ordered Nicotrol Inhaler 10 mg inhalation device See Instructions, 6-16 cartriges/day, # 1 EA, 2 Refill(s), [id number], 157.48, cm, 08/29/23 14:22:00 CDT, Height, 88, kg, 08/29/23 14:27:00 CDT, Weight Dosing Start Date: 08/29/23 Status: Ordered pantoprazole 40 mg oral delayed release tablet 1 tab, Oral, Daily, # 90 tab, 0 Refill(s), [id number], 157.48, cm, 06/07/23 16:07:00 CDT, Height, 89.36, kg, 06/19/23 15:32:00 CDT, Weight Dosing Start Date: 06/20/23 Status: Ordered Pepcid 20 mg oral tablet 20 mg = 1 tab, Oral, BID, 0 Refill(s) Start Date: 09/29/20 Status: Ordered sucralfate 1 g oral tablet 1 tab, Oral, QID, # 360 tab, 0 Refill(s), Pharmacy: [id number], 157.48, cm, 08/29/23 14:22:00 CDT, Height, 88, kg, 08/29/23 14:27:00 CDT, Weight Dosing Start Date: 09/05/23 Status: Ordered venlafaxine 37.5 mg oral capsule, extended release 37.5 mg = 1 cap, Oral, Daily, # 90 cap, 0 Refill(s), [facility]: [id number] [place], 157.48, cm, 09/28/23 18:18:00 CDT, Height, 81.65, [...] Oral [35.8-37.3 Deg C] 36.9 Deg C (02/02/24 12:03 PM) Apical Heart Rate [60-100 bpm] 63 bpm (02/02/24 1:16 PM) Heart Rate Monitored [60-100 bpm] 68 bpm (02/02/24 12:03 PM) Respiratory Rate [-24 br/min] 16 br/mi n (02/02/24 1:16 PM) 18 br/min (02/02/24 12:03 PM) Blood Pressure [90-120/60-80 mmHg] 145/8 2mmHg *HI* (02/02/24 1:16 PM) 144/85mmHg *HI* (02/02/24 12:03 PM) Mean Arterial Pressure, Cuff [65-140 mmHg] 105 mmHg (02/02/24 12:03 PM) Weight 83.91 kg (02/02/24 12:03 PM) Weight Dosing 83.910 kg (02/02/24 12:03 PM) Height 157.48 cm (02/02/24 12:03 PM) Body Mass Index 33.83 kg/m2 (02/02/24 12:03 PM) Social History Social History Type Response Tobacco Current everyday tob acco user Tobacco Use:. Sex Sex Representation Female (finding) Hospital Discharge Instructions Patient Education 02/02/2024 12:38:59 Shoulder Pain Shoulder Pain Many things can [...] strengthen the arm. General instructions ??? Take [id number]-kwjpmjb and prescription medicines only as told by [...] provider. Document Revised: 10/07/2022 Document Reviewed: 10/07/2022 ElseTedcas Patient Education ?? 2022 [employer]. Follow Up Care 02/02/2024 11:52:09 With:Follow up with primary care provider Address:Unknown When:3 to 5 days Physician Emergency department Note * Andrew Francis DO: PERFORM, MODIFY, MODIFY Event Display: ED Note Physician Authored Date: [id number] MISHA JACKSON :1980 Age:43 years Sex:Female Visit Date:02/02/2024 Primary Care Physician: Hermes Ramirez MD Basic Information Time Seen: Andrew Francis DO / 02/02/2024 11:58 Chief Complaint Pt C/O R shoulde pain that radiates into neck causing head discomfort. Pt fell at work and has beenfollowing up with Vadim Huang. Took tylenol prior to arrival. History Of Present Illness: Is of right shoulder pain??radiating to her neck this is a chronic problem??she fell at work??weeksago??she saw ??Vadim Huang??they are deciding whether she needs any kind of surgery??or how they are going to??follow-up??for this problem only diagnosed??bursitis??had repeated x-rays and MRI of theright shoulder in the past Review of Systems: Constitutional:?No??fevers,?No??chills,?No??sweats Eye:?No??recent visual problems ENT:?No??ear pain,?No??nasal congestion,?No??sore throat Respiratory:?No??shortness of breath,?No??cough Cardiovascular:?No??Chest pain,?No??palpitations,?No??syncope Gastrointestinal:?Nonausea,?No??vomiting,?No??diarrhea Genitourinary:?No??hematuria Clemente/Lymph:?No??bruising tendency,?No??swollen lymph glands Endocrine:?No??excessive thirst,??No??excessive hunger Musculoskeletal:??No??back pain,??Positive for??neck pain,??No??joint pain,??No??muscle pain,??No??decreased range of motion c/o right shoulder pain-chronic Integumentary:?No??rash,?No??pruritus,?No??abrasions Neurologic: Alert & oriented X 4 Psychiatric:?No??anxiety,?No??depression Physical Exam Vitals & Measurements T:??36.9?C ??(Oral)?? HR:??68??(Monitored)?? RR:??18?? BP:??144/85?? SpO2:??99%?? HT:??157.48??cm?? WT:??83.91??kg?? BMI:??33.83?? Pain Score:??7?? O2 Therapy:??Room air?? General: Alert [...] Musculoskeletal: Normal range of motion and strength, to the right??anterior and posterior shoulderon palpation no soft tissue swelling ecchymosis or deformity Skin: Skin is warm, dry and appropriate for ethnicity, no rashes or lesions. Neurologic: Awake, alert and oriented X4, CN II-XII intact. Psychiatric: Cooperative, appropriate mood and affect. Medical Decision Making: Susan with patient that she is getting too many narcotic shots here with morphine??and that we will no longer be giving her morphine she needs to go to a pain clinic or follow-up with her doctor??for any narcotics in the future Procedure No Qualifying Data Assessment/Plan Chronic pain in right shoulder??M25.511 Other chronic pain??G89.29 Orders: Benadryl, 50 mg = 2 cap, Oral, Cap, Once, First Dose: 02/02/24 12:36:00 FLOWER STRIPPER, Stop Date: 02/02/24 12:36:00 FLOWER STRIPPER, Physician Stop, NOW Benadryl 25 mg oral capsule, 50 mg = 2 cap, Oral, Once, 0 Refill(s) morphine, 2 mg = 1 mL, Intramuscular, Injection, Once, First Dose: 02/02/24 12:36:00 FLOWER STRIPPER, Stop Date: 02/02/24 12:36:00 FLOWER STRIPPER, Physician Stop, NOW Patient Discharge Condition good Discharge Disposition home Patient Education Shoulder Pain Follow Up With [...] Family History Cancer: Mother. Electronically Signed on 02/02/2024 13:17 FLOWER STRIPPER Andrew Francis DO Patient Care team information Care Team Personnel Name: Jessee Jones BREAK OFF WORKER Position: Physician Member Role: Nurse Practitioner Address: [address] [place] [address], [address] Name: Latoya Marquez BREAK OFF WORKER Position: Physician Member Role: Nurse Practitioner Address: [address] [place] [address] Name: Leonila Gonzalez BREAK OFF WORKER Position: Physician Member Role: Nurse Practitioner Address: [address] [place] [address] Name: Beth Brandt BREAK OFF WORKER Position: Physician Member Role: Nurse Practitioner Address: [address] [place] [address] [place] [address] [place] Name: Hermes Ramirez MD Position: Physician Member Role: Informed Provider Address: [address] [facility], [address] [place] [address]- Name: Pillo Moe NP Position: Physician Member Role: Nurse Practitioner Address: [address] [facility], [address] [facility] Care Team Related Persons Name: STACIA JONES Name: ROBYN JAMA Name: NAIF CHOI Name: MADY CHEN Name: MADY CHEN Insurance Providers Guarantor name: MISHA JACKSON Health Plan Information #: 2 Payer: [employer] APPROVED Member Number: [id number] Policy Number: Health Plan Information #: 1 Payer: [employer] M[employer] C[employer] Member Number: [id number] Policy Number: Health Plan Information #: 3 Payer: MISC Workers Comp Member Number: Policy Number:
--- OUTSIDE RECORDS SUMMARY | 2024-03-20 11:49 | XMS_ITS | Continuity of Care Document ---
Author Organization [facility] Address [address] [place] [address] Care Team Providers Care Eyedotter Name Role Phone Hermes Ramirez Primary Care Physician Encounter [facility] [id number] Date(s): 01/10/22 - 01/10/[address] [address] Encounter Diagnosis Intractable chronic migraine without aura(Discharge Diagnosis) - 01/10/22 Discharge Disposition: Home or Self Care Attending [...] Tests Radiology* MRI Spine Cervical w/o Contrast 01/14/22 Immunizations Given and Recorded Vaccine Date Status [...] Pharmacy: [facility] [place], [place], 73, cm, 09/13/21 23:53:00 CDT, Height/Length [...] # 12 cap, 0 Refill(s), Pharmacy: [place], [place], 157, cm, 11/04/21 20:02:00 CDT, Height/Length Dosing, 73, kg, 11/04/21 20:02:00 CDT, Weight Dosing Start Date: 11/04/21 Status: Ordered ciprofloxacin 500 mg oral tablet 500 mg = 1 tab, Oral, every 12 hr, # 14 tab, 0 Refill(s), [facility], 157, cm, 01/01/22 18:29:00 CDT, Height/Length [...] # 180 tab, 3 Refill(s), Pharmacy: [place], [place], 157, cm, 10/22/20 21:26:00 CDT, Height/Length Dosing, 74, kg, 10/22/20 21:26:00 CDT, Weight Dosing Start Date: 12/18/20 Status: Ordered ondansetron 4 mg oral tablet, disintegrating 4 mg = 1 tab, Oral, every 6 hr, PRN nausea/vomiting, # 12 tab, 0 Refill(s), Pharmacy: [place], [place], 157, cm, 11/04/21 20:02:00 CDT, Height/Length [...] # 20 tab, 0 Refill(s), Pharmacy: [place], 157, cm, 09/29/21 23:03:00 CDT, Height/Length [...] # 2 tab, 0 Refill(s), Pharmacy: [place], 157, cm, 01/05/22 0:17:00 CDT, Height/Length [...] Oral [35.8-37.3 Deg C] 37.1 Deg C (01/10/22 6:17 PM) Peripheral Pulse Rate [60-100 bpm] 107 b pm *HI* (01/10/22 6:17 PM) Respiratory Rate [12-24 br/min] 20 br/mi n (01/10/22 6:17 PM) Blood Pressure [90-140/60-90 mmHg] 161/9 2mmHg *HI* (01/10/22 6:17 PM) Weight 72.57 kg (01/10/22 6:17 PM) Weight Dosing 72.57 kg (01/10/22 6:25 PM) Height 157.000 cm (01/10/22 6:17 PM) Height/Length Dosing 157.000 cm (01/10/22 6:25 PM) Social History Social History Type Response Tobacco Current some day tob acco user Tobacco Use:. Sex Hospital Discharge Instructions Patient Education 01/10/2022 18:31:11 Chronic Migraine Headache, Arwc-ab-Gvzm Chronic Migraine Headache A migraine headache is [...] these instructions at home: Medicines ??? Take ioqu-ijm-aemzxvl and prescription medicines only as told by [...] ?? 2021 [employer] Follow Up Care 01/10/2022 18:17:09 With:Follow up with primary care provider Address: When:5 to 7 days Patient Care team information Personnel Name: Hermes Ramirez MD Address: [facility] [address] [place], [place] [address]
--- OUTSIDE RECORDS SUMMARY | 2024-03-20 11:49 | XMS_ITS | Continuity of Care Document ---
Author Organization [facility] Address [address] [place] [address] Care Team Providers Care Machine Operator Packaging Name Role Phone Hermes Ramirez Primary Care Physician [phone] Encounter [facility] [id number] Date(s): 10/22/22 - 10/22/[address] [address] [place] Encounter Diagnosis Migraine headache(Discharge Diagnosis) - 10/22/22 Discharge Disposition: Home or Self Care Attending [...] Complete 2+ Views Right 07/04/22 Functional Status 10/22/22 Other exposure to Infectious Disease Non e [...] wheezing, # 6.7 g, 0 Refill(s), Pharmacy: [place], [place], 73, cm, 09/13/21 23:53:00 CDT, Height/Length Dosing, 157, kg, 09/13/21 23:53:00 CDT, Weight Dosing Start Date: 09/14/21 Status: Ordered amLODIPine 5 mg oral tablet 5 mg = 1 tab, Oral, Daily, # 30 tab, 0 Refill(s), Pharmacy: [place], [place], 157, cm, 09/10/22 15:23:00 CDT, Height/Length [...] needed, # 12 cap, 0 Refill(s), Pharmacy: [place], [place], 157, cm, 11/04/21 20:02:00 CDT, Height/Length [...] BID, # 60 cap, 0 Refill(s), Pharmacy: [place], [place], 157, cm, 09/10/22 15:23:00 CDT, Height/Length [...] nausea/vomiting, # 20 tab, 0 Refill(s), Pharmacy: [place], [place], 157, cm, 09/29/21 23:03:00 CDT, Height/Length [...] Oral [35.8-37.3 Deg C] 36.8 Deg C (10/22/22 9:56 AM) Peripheral Pulse Rate [60-100 bpm] 81 bp m (10/22/22 9:56 AM) Respiratory Rate [12-24 br/min] 16 br/mi n (10/22/22 9:56 AM) Blood Pressure [90-140/60-90 mmHg] 135/9 5mmHg (10/22/22 9:56 AM) Weight Dosing 79.38 kg (10/22/22 10:04 AM) Weight Estimated 79.38 kg (10/22/22 9:56 AM) Height/Length Dosing 157.480 cm (10/22/22 10:04 AM) Height/Length Estimated 157.480 cm (10/22/22 9:56 AM) Social History Social History Type Response Tobacco Current everyday tob acco user Tobacco Use:. 1 Sex 1Pt states that she smokes half a pack a day. Hospital Discharge Instructions Patient Education 10/22/2022 10:16:25 Chronic Migraine Headache, Qlsh-gi-Icdc Chronic Migraine Headache A migraine headache is [...] these instructions at home: Medicines ??? Take eeef-txm-gyonwyx and prescription medicines only as told by [...] Headache and Migraine Patients (CHAMP): headachemigraine.org ??? [place] Migraine [employer]: americanmigrainefoundation.org ??? National Headache Foundation: [...] provider. Document Revised: 04/22/2020 Document Reviewed: 04/22/2020 Else2NGageU Patient Education ?? 2022 [employer]. Follow Up Care 10/22/2022 09:56:21 With:Hermes Ramirez MD Address: [address] [place] [address] [address] [place] [id number]- When:1 week Comments:Continue other home medications. Physician Emergency department Note * Jesus Khan MD: PERFORM Event Display: ED Note Physician Authored Date: MISHA JACKSON :1980 Age:42 years Sex:Female Visit Date:10/22/2022 Primary Care Physician: Hermes Ramirez MD Basic Information Time Seen: Jesus Khan MD / 10/22/2022 09:58 Chief Complaint Pt C/O headache that started at 0500 with light senisitivty and one episode of vomiting. Tylenol [id number]. History Of Present Illness: 42 years old female??history of chronic??migraine headaches;??multiple??frequent visits??to the ER??for recurring migraines??states??she has seen neurologist??for the past??which gives her??Botox injections??for her recurrent migraines??and it seems to help to an extent.?? Was just here??5 or 6 days ago??with another episode of migraine??for which she got??Benadryl, Phenergan and??Dilaudid.?? This time her headache??started around 5 AM,??states lights bothers her and??vomited x1.?? Headaches karine her right side Review of Systems: Constitutional:?No??fevers,?No??chills,?No??sweats Eye:?No??recent visual problems ENT:?No??ear pain,?No??nasal congestion,?No??sore throat Respiratory:?No??shortness of breath,?No??cough Cardiovascular:?No??Chest pain,?No??palpitations,?No??syncope Gastrointestinal:?Nonausea,?Positive for??vomiting,?No??diarrhea Genitourinary:?No??hematuria Clemente/Lymph:?No??bruising tendency,?No??swollen lymph glands Endocrine:?No??excessive thirst,??No??excessive hunger Musculoskeletal:??No??back pain,??No??neck pain,??No??joint pain,??No??muscle pain,??No??decreased range of motion Integumentary:?No??rash,?No??pruritus,?No??abrasions Neurologic: Alert & oriented X 4 Psychiatric:?No??anxiety,?No??depression Physical Exam Vitals & Measurements T:??36.8?C ??(Oral)?? HR:??81??(Peripheral)?? RR:??16?? BP:??135/95?? SpO2:??98%?? HT:??157.480??cm?? WT:??79.38??kg??(Estimated)?? Pain Score:??8?? O2 Therapy:??Room air?? General: Alert [...] appropriate mood and affect Medical Decision Making: Phenergan??25 mg IM;??Benadryl 50 mg IM. Procedure No Qualifying Data Assessment/Plan 1.??Headache, chronic migraine without aura??G43.709 2.??Migraine headache??G43.909 Orders: Benadryl, 50 mg = 1 mL, IM, Injection, Once, First Dose: 10/22/22 10:05:00 CDT, Stop Date: 10/22/2309:05:00 CDT, Physician Stop Phenergan, 25 mg = 1 mL, IM, Injection, Once, First Dose: 10/22/22 10:05:00 CDT, Stop Date: 10/22/22 10:05:00 CDT, Physician Stop Chronic, recurrent migraine headaches.?? Told patient I was going to give her Benadryl??50 mg IM and??Phenergan 25 mg IM??and that I was not going to give her any??narcotics (Dilaudid). Patient Discharge Condition Stable Discharge Disposition Discharge home??follow-up with Patient Education Chronic Migraine Headache, Ltjp-sm-Utxu Follow Up With When Contact Information Hermes Ramirez MD Within [address] [place] [address], [address] [place] [address]- Additional Instructions: Continue other home medications. Medication Reconciliation Unchanged albuterol (albuterol 90 mcg/inh [...] Medication Administration Given Benadryl, 50 mg, IM Phenergan, 25 mg, IM [...] Attestation Follow-up with PCP Electronically Signed on 10/22/22 10:17 AM Jesus Khan MD Patient Care team information Care Team Personnel Name: Jessee Jones APPLICATIONS SYSTEM ANALYST Position: Physician Member Role: Nurse Practitioner Address: Address: [address] [place] [address], [address] [place] [address]- Name: Latoya Marquez NP Position: Physician Member Role: Nurse Practitioner Address: Address: [address] [place] [address]- Name: Leonila Gonzalez NP Position: Physician Member Role: Nurse Practitioner Address: Address: [address] [place] [address]- Name: Beth Brandt APPLICATIONS SYSTEM ANALYST Position: Physician Member Role: Nurse Practitioner Address: Address: [address] [place] [address] Name: Hermes Ramirez MD Position: Physician Member Role: Informed Provider Address: Address: [address] [place] [address], [address] [place] [address]- Name: Pillo Moe NP Position: Physician Member Role: Nurse Practitioner Address: Address: [address] [place] [address], [address] [facility] Name: Jesus Khan MD Position: Physician Member Role: Admitting Physician Address: Address: [address] [place] [address] [place] [address]- [place] Name: Sejal Porter RN Position: Nurse Member Role: ED Nurse Care Team Related Persons Name: STACIA JONES Address: Home [address] [place] [phone] Name: ROBYN JAMA Address: Home
--- OUTSIDE RECORDS SUMMARY | 2024-03-20 11:49 | XMS_ITS | Continuity of Care Document ---
Author Organization [facility] Address [address] [place] [address] Care Team Providers Care Flexographic Press Set Up Operator Name Role Phone Hermes Ramirez Primary Care Physician [phone] Encounter [facility] [id number] Date(s): 10/28/22 - 10/28/[address] [address]- [place] Discharge Disposition: Home or [...] Assessment and Plan Diagnostic Tests Pending * Cyclosporine, Blood LC-MS/MS LC 10/28/22 Future Scheduled Tests Laboratory* Giardia lamblia Ag, [...] wheezing, # 6.7 g, 0 Refill(s), Pharmacy: [place], [place], 73, cm, 09/13/21 23:53:00 CDT, Height/Length Dosing, 157, kg, 09/13/21 23:53:00 CDT, Weight Dosing Start Date: 09/14/21 Status: Ordered amLODIPine 5 mg oral tablet 5 mg = 1 tab, Oral, Daily, # 30 tab, 0 Refill(s), Pharmacy: [place], [place], 157, cm, 09/10/22 15:23:00 CDT, Height/Length [...] needed, # 12 cap, 0 Refill(s), Pharmacy: [place], [place], 157, cm, 11/04/21 20:02:00 CDT, Height/Length [...] BID, # 60 cap, 0 Refill(s), Pharmacy: [place], [place], 157, cm, 09/10/22 15:23:00 CDT, Height/Length [...] nausea/vomiting, # 20 tab, 0 Refill(s), Pharmacy: [place], [place], 157, cm, 09/29/21 23:03:00 CDT, Height/Length [...] Results Laboratory List Name Date Automated Diff 10/28/22 CBC w/ Diff 10/28/22 Comprehensive Metabolic Panel 10/28/22 GGT 10/28/22 Most recent to oldest [Reference Range]: 1 WBC [4.0-11.5 K/mcL] 5.4 K/mcL (10/28/22 6:41 AM) RBC [4.20-5.40 x10^6/mcL] 4.27 x10^6/mcL (10/28/22 6:41 AM) Neutro Auto 56.6 % *NA* (10/28/22 6:41 AM) Lymph Auto 28.0 % *NA* (10/28/22 6:41 AM) [place] Auto 9.4 % *NA* (10/28/22 6:41 AM) Basophil Auto 0.2 % *NA* (10/28/22 6:41 AM) BUN [7-18 mg/dL] 25 mg/dL *HI* (10/28/22 6:41 AM) Glucose Level [70-110 mg/dL] 95 mg/dL (10/28/22 6:41 AM) Potassium Level [3.5-5.1 mmol/L] 4.0 mmo l/L (10/28/22 6:41 AM) Baso Absolute [0.0-0.1 x10^3/mcL] 0.0 x1 0^3/mcL (10/28/22 6:41 AM) MCV [78.0-100.0 fL] 95.8 fL (10/28/22 6:41 AM) AST [15-37 unit/L] 23 unit/L (10/28/22 6:41 AM) ALT [12-78 unit/L] 32 unit/L (10/28/22 6:41 AM) MCHC [29.0-37.5 g/dL] 34.7 g/dL (10/28/22 6:41 AM) Sodium Level [136-145 mmol/L] 144 mmol/L (10/28/22 6:41 AM) Lymph Absolute [0.8-5.8 x10^3/mcL] 1.5 x 10^3/mcL (10/28/22 6:41 AM) Hct [36.0-48.0 %] 40.9 % (10/28/22 6:41 AM) Calcium Level [8.5-10.1 mg/dL] 8.9 mg/dL (10/28/22 6:41 AM) [place] Absolute [0.1-1.5 x10^3/mcL] 0.5 x1 0^3/mcL (10/28/22 6:41 AM) Albumin Level [3.4-5.0 g/dL] 3.1 g/dL *LOW* (10/28/22 6:41 AM) Protein Total [6.4-8.2 g/dL] 6.8 g/dL (10/28/22 6:41 AM) MCH [27.0-34.0 pg] 33.3 pg (10/28/22 6:41 AM) Neutro Absolute [1.5-8.1 x10^3/mcL] 3.1 x10^3/mcL (10/28/22 6:41 AM) Bilirubin Total [0.0-1.0 mg/dL] 0.6 mg/d L (10/28/22 6:41 AM) Hgb [12.0-16.0 g/dL] 14.2 g/dL (10/28/22 6:41 AM) Alk Phos [46-130 unit/L] 267 unit/L *HI* (10/28/22 6:41 AM) MPV [6.0-10.0 fL] 11.0 fL *HI* (10/28/22 6:41 AM) Platelets [150-450 K/mcL] 137 K/mcL *LOW* (10/28/22 6:41 AM) CO2 [21-32 mmol/L] 19 mmol/L *LOW* (10/28/22 6:41 AM) Eos Absolute [0.0-0.5 x10^3/mcL] 0.3 x10 ^3/mcL (10/28/22 6:41 AM) GGT [5-55 unit/L] 225 unit/L *HI* (10/28/22 6:41 AM) eGFR Non-AA 38 *NA* (10/28/22 6:41 AM) eGFR AA 46 *NA* (10/28/22 6:41 AM) Chloride Level [97-107 mmol/L] 111 mmol/ L *HI* (10/28/22 6:41 AM) RDW-CV [11.5-15.0 %] 12.4 % (10/28/22 6:41 AM) Imm Gran Absolute [0.0-0.1 x10^3/mcL] 0. 0 x10^3/mcL (10/28/22 6:41 AM) Imm Gran Auto 0.2 % *NA* (10/28/22 6:41 AM) NRBC Auto 0.0 % *NA* (10/28/22 6:41 AM) NRBC Absolute [0.0-0.0 x10^3/mcL] 0.0 x1 0^3/mcL (10/28/22 6:41 AM) Slide Review Not Indicated (10/28/22 6:41 AM) Creatinine Level [0.60-1.30 mg/dL] 1.59 mg/dL 1 *HI* (10/28/22 6:41 AM) Anion Gap [5-15 mmol/L] 18 mmol/L *HI* (10/28/22 6:41 AM) Eos, Auto 5.6 % *NA* (10/28/22 6:41 AM) 1Interpretive Data: Association of GFR [...] information Care Team Personnel Name: Jessee Jones OIL WELL DIRECTIONAL SURVEYOR Position: Physician Member Role: Nurse Practitioner Address: Address: [address] [place] [address], [address] Name: Latoya Marquez OIL WELL DIRECTIONAL SURVEYOR Position: Physician Member Role: Nurse Practitioner Address: Address: [address] [place] [address] Name: Leonila Gonzalez OIL WELL DIRECTIONAL SURVEYOR Position: Physician Member Role: Nurse Practitioner Address: Address: [address] [place] [address] Name: Beth Brandt OIL WELL DIRECTIONAL SURVEYOR Position: Physician Member Role: Nurse Practitioner Address: Address: [address] [place] [address] Name: Hermes Ramirez MD Position: Physician Member Role: Informed Provider Address: Address: [address] [place] [address], [address] Name: Pillo Moe NP Position: Physician Member Role: Nurse Practitioner Address: Address: [address] [place] [address], [facility] [address] [facility] Care Team Related Persons Name: STACIA JONES Address: Home [facility] [place], [place] [id number] Name: ROBYN JAMA Address: Home
--- OUTSIDE RECORDS SUMMARY | 2024-03-20 11:49 | XMS_ITS | Continuity of Care Document ---
[facility] Organization [facility] Address [address] [place] [address]- Care Team Providers Care Rental Boats Caretaker Name Role Phone Hermes Ramirez Primary Care Physician Encounter ONOFRE MCGRAW [id number] Date(s): 06/29/22 - 06/29/22 [facility] [address] [place] [address]- Discharge Disposition: Home or Self Care Attending Physician: Jessee Jones DIRECTOR OF STUDENT AFFAIRS Allergies, Adverse Reactions, Alerts Substance Reaction Severity [...] Radiology* MRI Shoulder w/o Contrast Right 06/27/22 Immunizations Given and Recorded Vaccine Date Status [...] wheezing, # 6.7 g, 0 Refill(s), Pharmacy: [place], [place], 73, cm, 09/13/21 23:53:00 CDT, Height/Length [...] needed, # 12 cap, 0 Refill(s), Pharmacy: [place], [place], [address], cm, 11/04/21 20:02:00 CDT, Height/Length [...] 18:45:00CST, Height/Length Dosing, 72.57, kg, 02/07/22 18:45:00 PROGRAM MANAGER TRANSPORTATION, Weight Dosing Start Date: 02/13/22 Status: Ordered Pepcid 20 mg oral tablet 20 mg = 1 tab, Oral, BID, 0 Refill(s) Start Date: 09/29/20 Status: Ordered Phenergan 25 mg oral tablet 25 mg = 1 tab, Oral, every 6 hr, PRN as needed for nausea/vomiting, # 20 tab, 0 Refill(s), Pharmacy: [facility] - [place], [place], [address], cm, 09/29/21 23:03:00 CDT, Height/Length [...] information Care Team Personnel Name: Jessee Jones DIRECTOR OF STUDENT AFFAIRS Position: Physician Member Role: Nurse Practitioner Address: Address: [address] [place] [address], [address] [place] [address]- Name: Latoya Marquez DIRECTOR OF STUDENT AFFAIRS Position: Physician Member Role: Nurse Practitioner Address: Address: [address] [place] [address]- Name: Leonila Gonzalez DIRECTOR OF STUDENT AFFAIRS Position: Physician Member Role: Nurse Practitioner Address: Address: [address] [place] [address] Name: Beth Brandt DIRECTOR OF STUDENT AFFAIRS Position: Physician Member Role: Nurse Practitioner Address: Address: [address] [place] [address] Name: Hermes Ramirez MD Position: Physician Member Role: Informed Provider Address: Address: [address] [place] [address], [address] Name: Pillo Moe NP Position: Physician Member Role: Nurse Practitioner Address: Address: [address] [place] [address], [facility] Care Team Related Persons Name: STACIA JONES Address: Home [address] [place] [phone] Name: ROBYN JAMA Address: Home
--- OUTSIDE RECORDS SUMMARY | 2024-03-20 11:49 | XMS_ITS | Continuity of Care Document ---
Author Organization [facility] Address [address] [place] [address]- Care Team Providers Care Calculation Reviewer Name Role Phone Hermes Ramirez Primary Care Physician [phone] Encounter ONOFRE MARILUZ [id number] Date(s): 07/29/21 - 07/29/21 [facility] [address] [place] [address]- Discharge Disposition: Home or Self Care Attending Physician: Jessee Jones NUTRITIONAL SERVICES DIRECTOR Allergies, Adverse Reactions, Alerts Substance Reaction Severity Status gentamicin Moderate Active erythromycin Medication interaction Activ e aspirin Medication interaction Activ e Toradol Kidney failure as a complication of care Active NSAIDs Severe Active Assessment and Plan Future Appointments Future Scheduled Tests Radiology* MRI Spine Cervical w/o Contrast 06/11/21 * MRI Spine Cervical w/o Contrast 06/24/21 Functional Status 07/29/21 Other exposure to Infectious Disease Non e [...] # 180 tab, 3 Refill(s), Pharmacy: [place], [place], [address], cm, 10/22/20 21:26:00 CDT, Height/Length [...] Oral [35.8-37.3 Deg C] 37.3 Deg C (07/29/21 9:39 AM) Peripheral Pulse Rate [60-100 bpm] 91 bp m (07/29/21 9:39 AM) Respiratory Rate [12-24 br/min] 18 br/mi n (07/29/21 9:39 AM) Blood Pressure [90-140/60-90 mmHg] 112/6 2mmHg (07/29/21 9:39 AM) Weight 76.66 kg (07/29/21 9:39 AM) Weight Measured (lbs) 169.006 lb (07/29/21 9:39 AM) Social History Social History Type Response Smoking Status 5-9 cigarettes (betw een 1/4 to 1/2 pack)/day in last 30 days entered on: 05/12/21 Sex Care Team Personnel Name: Hermes Ramirez MD Address: [address] [place] [address], [address] [place] [address]-
--- OUTSIDE RECORDS SUMMARY | 2024-03-20 11:49 | XMS_ITS | Continuity of Care Document ---
Author Organization [facility] Address [address] [place] [address] Care Team Providers Care Slip Maker Name Role Phone Hermes Ramirez Primary Care Physician Encounter ONOFREEver MCGRAW [id number] Date(s): 03/05/23 - 03/05/23 [address] [place] [address] [place] [address] us Encounter Diagnosis Strep throat(Discharge Diagnosis) - 03/05/23 Discharge Disposition: Home or Self Care Attending [...] Appointments Diagnostic Tests Pending * Urine Culture 03/05/23 Future Scheduled Tests Laboratory* Giardia lamblia Ag, [...] US Breast Limited Left 08/24/23 Functional Status 03/05/23 Family Member Travel History No recent t [...] Daily, # 30 tab, 11 Refill(s), Pharmacy: [place], [place], 157.48, cm, 01/04/23 15:03:00 CDT, Height/Length [...] 30 tab, 0 Refill(s), 03/15/23 5:40:00 PM DISCOUNT CLERK, Pharmacy: [place], [place], [address], cm, 03/02/23 9:01:00 DISCOUNT CLERK, Height, 86.64, kg, 03/02/23 9:15:00 DISCOUNT CLERK, Weight Dosing Start Date: 03/05/23 Stop Date: [...] BID, # 60 cap, 11 Refill(s), Pharmacy: [place], [place], [address].48, cm, 01/04/23 15:03:00 CDT, Height/Length [...] Laboratory List Name Date CBC w/ Diff 03/05/23 Comprehensive Metabolic Panel (CMP) 02/17 10/09 Automated Diff 03/05/23 Respiratory Panel 2.1 ([employer]) 03/05/23 Strep A Screen 03/05/23 Urinalysis with Culture if Indicated .Urine Volume 03/05/23 Urinalysis Microscopic 03/05/23 Most recent to oldest [Reference Range]: 1 WBC [4.0-11.5 K/mcL] 7.1 K/mcL (03/05/23 4:57 PM) RBC [4.20-5.40 x10^6/mcL] 4.44 x10^6/mcL (03/05/23 4:57 PM) Neutro Auto 72.6 % *NA* (03/05/23 4:57 PM) Lymph Auto 16.7 % *NA* (03/05/23 4:57 PM) [place] Auto 7.8 % *NA* (03/05/23 4:57 PM) Basophil Auto 0.3 % *NA* (03/05/23 4:57 PM) BUN [7-18 mg/dL] 27 mg/dL *HI* (03/05/23 4:57 PM) UA Color Yellow (03/05/23 3:55 PM) UA WBC [0-5] 6-10 *ABN* (03/05/23 3:55 PM) Glucose Level [70-110 mg/dL] 95 mg/dL (03/05/23 4:57 PM) Potassium Level [3.5-5.1 mmol/L] 3.7 mmo l/L (03/05/23 4:57 PM) Baso Absolute [0.0-0.1 x10^3/mcL] 0.0 x1 0^3/mcL (03/05/23 4:57 PM) MCV [78.0-100.0 fL] 98.2 fL (03/05/23 4:57 PM) UA Urobilinogen [Normal mg/dL] Normal mg /dL (03/05/23 3:55 PM) UA Hyal Cast 1-3 (03/05/23 3:55 PM) UA Bili [Negative mg/dL] Negative mg/dL (03/05/23 3:55 PM) UA Ketones [Negative mg/dL] Negative mg/ dL (03/05/23 3:55 PM) AST [15-37 unit/L] 22 unit/L (03/05/23 4:57 PM) ALT [12-78 unit/L] 30 unit/L (03/05/23 4:57 PM) MCHC [29.0-37.5 g/dL] 33.7 g/dL (03/05/23 4:57 PM) Sodium Level [136-145 mmol/L] 144 mmol/L (03/05/23 4:57 PM) UA RBC [0-3] None (03/05/23 3:55 PM) UA Leuk Est [Negative Guille/mcL] 75 Guille/mc L *ABN* (03/05/23 3:55 PM) Lymph Absolute [0.8-5.8 x10^3/mcL] 1.2 x 10^3/mcL (03/05/23 4:57 PM) UA Nitrite [Negative] Negative (03/05/23 3:55 PM) UA Glucose [Normal mg/dL] Normal mg/dL (03/05/23 3:55 PM) Hct [36.0-48.0 %] 43.6 % (03/05/23 4:57 PM) UA Bacteria [None Seen] Occasional *ABN* (03/05/23 3:55 PM) Calcium Level [8.5-10.1 mg/dL] 9.2 mg/dL (03/05/23 4:57 PM) [place] Absolute [0.1-1.5 x10^3/mcL] 0.6 x1 0^3/mcL (03/05/23 4:57 PM) Albumin Level [3.4-5.0 g/dL] 3.6 g/dL (03/05/23 4:57 PM) Protein Total [6.4-8.2 g/dL] 7.6 g/dL (03/05/23 4:57 PM) UA Protein [Negative mg/dL] Negative mg/ dL (03/05/23 3:55 PM) MCH [27.0-34.0 pg] 33.1 pg (03/05/23 4:57 PM) Neutro Absolute [1.5-8.1 x10^3/mcL] 5.1 x10^3/mcL (03/05/23 4:57 PM) Bilirubin Total [0.0-1.0 mg/dL] 0.8 mg/d L (03/05/23 4:57 PM) Hgb [12.0-16.0 g/dL] 14.7 g/dL (03/05/23 4:57 PM) Alk Phos [46-130 unit/L] 247 unit/L *HI* (03/05/23 4:57 PM) UA Blood [Negative Rocael/mcL] Negative Rocael /mcL (03/05/23 3:55 PM) MPV [6.0-10.0 fL] 11.1 fL *HI* (03/05/23 4:57 PM) UA Mucous [None Seen] None Seen (03/05/23 3:55 PM) UA Spec Grav 1.020 (03/05/23 3:55 PM) Platelets [150-450 K/mcL] 132 K/mcL *LOW* (03/05/23 4:57 PM) CO2 [21-32 mmol/L] 22 mmol/L (03/05/23 4:57 PM) Eos Absolute [0.0-0.5 x10^3/mcL] 0.2 x10 ^3/mcL (03/05/23 4:57 PM) UA Squam Epithelial [None Seen] Few (03/05/23 3:55 PM) UA pH [5.0-9.0] 5.0 (03/05/23 3:55 PM) eGFR Non-AA 36 *NA* (03/05/23 4:57 PM) eGFR AA 44 *NA* (03/05/23 4:57 PM) UA Appear [Clear] Clear (03/05/23 3:55 PM) Chloride Level [97-107 mmol/L] 108 mmol/ L *HI* (03/05/23 4:57 PM) RDW-CV [11.5-15.0 %] 11.9 % (03/05/23 4:57 PM) Adenovirus RespP-BFire [Not Detected] No t Detected (03/05/23 3:58 PM) Bordetella parapertussis RespP-BFire [No t Detected] Not Detected (03/05/23 3:58 PM) Bordetella pertussis RespP-BFire [Not De tected] Not Detected (03/05/23 3:58 PM) Chlamydophila pneumoniae RespP-BFire [No t Detected] Not Detected (03/05/23 3:58 PM) Coronavirus 229E (Not COVID-19) RP-BFire [Not Detected] Not Detected (03/05/23 3:58 PM) Coronavirus HKU1 (Not COVID-19) RP-BFire [Not Detected] Not Detected (03/05/23 3:58 PM) Coronavirus NL63 (Not COVID-19) RP-BFire [Not Detected] Not Detected (03/05/23 3:58 PM) Coronavirus OC43 (Not COVID-19) RP-BFire [Not Detected] Not Detected (03/05/23 3:58 PM) Human Metapneumonovirus RespP-BFire [Not Detected] Not Detected (03/05/23 3:58 PM) Human Rhinovirus/Enterovirus RespP-BFir [Not Detected] Not Detected (03/05/23 3:58 PM) Influenza A RespP-BFire [Not Detected] N ot Detected (03/05/23 3:58 PM) Influenza B RespP-BFire [Not Detected] N ot Detected (03/05/23 3:58 PM) Mycomplasma pneumoniae RespP-BFire [Not Detected] Not Detected (03/05/23 3:58 PM) Parainfluenza Virus 1 RespP-BFire [Not D etected] Not Detected (03/05/23 3:58 PM) Parainfluenza Virus 2 RespP-BFire [Not D etected] Not Detected (03/05/23 3:58 PM) Parainfluenza Virus 3 RespP-BFire [Not D etected] Not Detected (03/05/23 3:58 PM) Parainfluenza Virus 4 RespP-BFire [Not D etected] Not Detected (03/05/23 3:58 PM) Respiratory Syncytial Virus RespP-BFire [Not Detected] Not Detected (03/05/23 3:58 PM) UA WBC Clumps Occasional (03/05/23 3:55 PM) Imm Gran Absolute [0.0-0.1 x10^3/mcL] 0. 0 x10^3/mcL (03/05/23 4:57 PM) Imm Gran Auto 0.3 % *NA* (03/05/23 4:57 PM) NRBC Auto 0.0 % *NA* (03/05/23 4:57 PM) NRBC Absolute [0.0-0.0 x10^3/mcL] 0.0 x1 0^3/mcL (03/05/23 4:57 PM) Slide Review Not Indicated (03/05/23 4:57 PM) Streptococcus A [Negative] Positive *ABN* (03/05/23 3:58 PM) UA Culture Ind?. Indicated *ABN* (03/05/23 3:55 PM) Urine Volume 12 mL (03/05/23 3:55 PM) Creatinine Level [0.60-1.30 mg/dL] 1.67 mg/dL 1 *HI* (03/05/23 4:57 PM) SARS-CoV-2 (COVID-19) RP-BFire [Not Dete cted] Not Detected 2 (03/05/23 3:58 PM) Anion Gap [5-15 mmol/L] 18 mmol/L *HI* (03/05/23 4:57 PM) Eos, Auto 2.3 % *NA* (03/05/23 4:57 PM) UA Yeast [None Seen] None Seen (03/05/23 3:55 PM) 1Interpretive Data: Association of GFR and [...] age. 2Interpretive Data: Testing performed using the [employer] Respiratory Panel 2.1 multiplexed PCR nucleic acid test. Vital Signs Most recent to oldest [Reference Range]: 1 Temperature Oral [35.8-37.3 Deg C] 36.6 Deg C (03/05/23 3:30 PM) Peripheral Pulse Rate [60-100 bpm] 98 bp m (03/05/23 3:30 PM) Respiratory Rate [12-24 br/min] 20 br/mi n (03/05/23 3:30 PM) Blood Pressure [90-140/60-90 mmHg] 167/9 3mmHg *HI* (03/05/23 3:30 PM) Mean Arterial Pressure, Cuff [70-110 mmH g] 118 mmHg *HI* (03/05/23 3:30 PM) Weight Estimated 82 kg (03/05/23 3:30 PM) Body Mass Index Estimated 33.27 kg/m2 (03/05/23 3:30 PM) Height/Length Estimated 157 cm (03/05/23 3:30 PM) Social History Social History Type Response Tobacco Current everyday tob acco user Tobacco Use:. Sex Hospital Discharge Instructions Patient Education 03/05/2023 17:41:19 Strep Throat, Adult Strep Throat, Adult Strep throat is an infection in the throat that is caused by bacteria. It is common during the coldmonths of the year. It mostly affects children who are 5???15 years old. However, people of all ages can get it at any time of the year. This infection spreads from person to person (is contagious) through coughing, sneezing, or having close contact. Your health care provider may use other names to describe the infection. When strep throat affects the tonsils, it is called tonsillitis. When it affects the back of the throat, it is called pharyngitis. What are the causes? This condition is caused by the Streptococcus pyogenes bacteria. What increases the risk? You are more likely to develop this condition if: ??? You care for school-age children, or are around school-age children. Children are more likely to get strep throat and may spread it to others. ??? You spend time in crowded places where the infection can spread easily. ??? You have close contact with someone who has strep throat. What are the signs or symptoms? Symptoms of this condition include: ??? Fever or chills. ??? Redness, swelling, or pain in the tonsils or throat. ??? Pain or difficulty when swallowing. ??? White or yellow spots on the tonsils or throat. ??? Tender glands in the neck and under the jaw. ??? Bad smelling breath. ??? Red rash all over the body. This is rare. How is this diagnosed? This condition is diagnosed by tests that check for the presence and the amount of bacteria that cause strep throat. They are: ??? Rapid strep test. Your throat is swabbed and checked for the presence of bacteria. Results are usually ready in minutes. ??? Throat culture test. Your throat is swabbed. The sample is placed in a cup that allows infections to grow. Results are usually ready in 1 or 2 days. How is this treated? This condition may be treated with: ??? Medicines that kill germs (antibiotics). ??? Medicines that relieve pain or fever. These include: ??? Ibuprofen or acetaminophen. ??? Aspirin, only for people who are over the age of 18. ??? Throat lozenges. ??? Throat sprays. Follow these instructions at home: Medicines ??? Take [id number] and prescription medicines only as told by your health care provider. ??? Take your antibiotic medicine as told by your health care provider. Do not stop taking the antibiotic even if you start to feel better. Eating and drinking ??? If you have trouble swallowing, try eating soft foods until your sore throat feels better. ??? Drink enough fluid to keep your urine pale yellow. ??? To help relieve pain, you may have: ??? Warm fluids, such as soup and tea. ??? Cold fluids, such as frozen desserts or popsicles. General instructions ??? Gargle with a salt-water mixture 3???4 times a day or as needed. To make a salt-water mixture, completely dissolve ?1 tsp (3???6 g) of salt in 1 cup (237 mL) of warm water. ??? Get plenty of rest. ??? Stay home from work or school until you have been taking antibiotics for 24 hours. ??? Do not use any products that contain nicotine or tobacco. These products include cigarettes, chewing tobacco, and vaping devices, such as e-cigarettes. If you need help quitting, ask your health care provider. ??? It is up to you to get your test results. Ask your health care provider, or the department thatis doing the test, when your results will be ready. ??? Keep all follow-up visits. This is important. How is this prevented? Do not share food, drinking cups, or personal items that could cause the infection to spread toother people. ??? Wash your hands often with soap and water for at least 20 seconds. If soap and water are not available, use hand alodize machine operator. Make sure that all people in your house wash their hands well. ??? Have family members tested if they have a sore throat or fever. They may need an antibiotic if they have strep throat. Contact a health care provider if: ??? You have swelling in your neck that keeps getting bigger. ??? You develop a rash, cough, or earache. ??? You cough up a thick mucus that is green, yellow-brown, or bloody. ??? You have pain or discomfort that does not get better with medicine. ??? Your symptoms seem to be getting worse. ??? You have a fever. Get help right away if: ??? You have new symptoms, such as vomiting, severe headache, stiff or painful neck, chest pain, orshortness of breath. ??? You have severe throat pain, drooling, or changes in your voice. ??? You have swelling of the neck, or the skin on the neck becomes red and tender. ??? You have signs of dehydration, such as tiredness (fatigue), dry mouth, and decreased urination. ??? You become increasingly sleepy, or you cannot wake up completely. ??? Your joints become red or painful. These symptoms may represent a serious problem that is an emergency. Do not wait to see if the symptoms will go away. Get medical help right away. Call your local emergency services (911 in the [place] Do not drive yourself to the hospital. Summary ??? Strep throat is an infection in the throat that is caused by the Streptococcus pyogenes bacteria. This infection is spread from person to person (is contagious) through coughing, sneezing, or having close contact. ??? Take your medicines, including antibiotics, as told by your health care provider. Do not stop taking the antibiotic even if you start to feel better. ??? To prevent the spread of germs, wash your hands well with soap and water. Have others do the same. Do not share food, drinking cups, or personal items. ??? Get help right away if you have new symptoms, such as vomiting, severe headache, stiff or painful neck, chest pain, or shortness of breath. This information is not intended to replace advice given to you by your health care provider. Make sure you discuss any questions you have with your health care provider. Document Revised: 06/29/2021 Document Reviewed: 06/29/2021 [employer] Patient Education ?? 2022 [employer]. Follow Up Care 03/05/2023 15:30:42 With:Follow up with primary care provider Address:Unknown When:1 to 2 days Comments:tylenol for pain or fever Physician Emergency department Note * Andrew Francis DO: PERFORM, MODIFY Event Display: ED Note Physician Authored Date: [id number] MISHA JACKSON :1980 Age:42 years Sex:Female Visit Date:03/05/2023 Primary Care Physician: Hermes Ramirez MD Basic Information Time Seen: Andrew Francis DO / 03/05/2023 15:32 History Of Present Illness: Complains of not feeling generally well??for the last??3 to 4 days??no cough sore throat earache??denies any dysuria Review of Systems: Constitutional:?No??fevers,?No??chills,?No??sweats c/o general weakness and malaise Eye:?No??recent visual problems ENT:?No??ear pain,?No??nasal congestion,?No??sore throat [...] and affect. Procedure No Qualifying Data Assessment/Plan Strep throat??J02.0 Orders: Augmentin 500 mg-125 mg oral tablet, 1 tab, Oral, every 8 hr, X 10 days, # 30 tab, 0 Refill(s), 03/15/23 17:40:00 DISCOUNT CLERK, Pharmacy: [place], [place], [address], cm, 03/02/23 9:01:00 DISCOUNT CLERK, Height, 86.64, kg, 03/02/23 9:15:00 DISCOUNT CLERK, Weight Dosing Sodium Chloride 0.9% 1,000 mL, Total Volume (mL): 1,000, 1,000 mL, Soln-IV, IV, 999 mL/hr, Start Date: 03/05/23 16:40:00 DISCOUNT CLERK, 86.64 kg, Populate Charting Weight From Order, 1.94, m2 Urine Culture, Urine, Stat collect, ST - Stat, 03/05/23 15:55:16 DISCOUNT CLERK, Once, Nurse collect, Collected, 03/05/23 15:55:16 DISCOUNT CLERK, Print Label dummy_label, [id number] Patient Discharge Condition good Discharge Disposition home Patient Education Strep Throat, Adult Follow Up With When Contact Information Follow up with primary care provider Within 1 to 2 days Additional Instructions: tylenol for pain or fever Medication Reconciliation New Prescription amoxicillin-clavulanate (Augmentin 500 mg-125 mg oral tablet)1 tab Oral (given by mouth) every 8 hours for 10 Days. Refills: 0. ?? Unchanged amLODIPine (amLODIPine [...] and Differential?? LATEST RESULTS?? HISTORICAL RESULTS?? WBC?? 03/05/23 16:57?? 7.1?? 01/27/23?? 6.4?? RBC?? 03/05/23 16:57?? 4.44?? 01/27/23?? 4.00 ??Low?? Hgb?? 03/05/23 16:57?? 14.7?? 01/27/23?? 13.5?? Hct?? 03/05/23 16:57?? 43.6?? 01/27/23?? 40.0?? MCV?? 03/05/23 16:57?? 98.2?? 01/27/23?? 100.0?? MCH?? 03/05/23 16:57?? 33.1?? 01/27/23?? 33.8?? MCHC?? 03/05/23 16:57?? 33.7?? 01/27/23?? 33.8?? RDW-CV?? 03/05/23 16:57?? 11.9?? 01/27/23?? 12.1?? Platelets?? 03/05/23 16:57?? 132 ??Low?? 01/27/23?? 108 ??Low?? MPV?? 03/05/23 16:57?? 11.1 ??High?? 01/27/23?? 10.5 ??High?? Neutro Auto?? 03/05/23 16:57?? 72.6?? 01/27/23?? 78.6?? Lymph Auto?? 03/05/23 16:57?? 16.7?? 01/27/23?? 11.6?? [place] Auto?? 03/05/23 16:57?? 7.8?? 01/27/23?? 7.5?? Eos, Auto?? 03/05/23 16:57?? 2.3?? 01/27/23?? 1.6?? Basophil Auto?? 03/05/23 16:57?? 0.3?? 01/27/23?? 0.2?? Imm Gran Auto?? 03/05/23 16:57?? 0.3?? 01/27/23?? 0.5?? NRBC Auto?? 03/05/23 16:57?? 0.0?? 01/27/23?? 0.0?? Neutro Absolute?? 03/05/23 16:57?? 5.1?? 01/27/23?? 5.0?? Lymph Absolute?? 03/05/23 16:57?? 1.2?? 01/27/23?? 0.7 ??Low?? [place] Absolute?? 03/05/23 16:57?? 0.6?? 01/27/23?? 0.5?? Eos Absolute?? 03/05/23 16:57?? 0.2?? 01/27/23?? 0.1?? Baso Absolute?? 03/05/23 16:57?? 0.0?? 01/27/23?? 0.0?? Imm Gran Absolute?? 03/05/23 16:57?? 0.0?? 01/27/23?? 0.0?? NRBC Absolute?? 03/05/23 16:57?? 0.0?? 01/27/23?? 0.0?? Slide Review?? 03/05/23 16:57?? Not Indicated?? 01/27/23?? Not Indicated? Routine Chemistry?? LATEST RESULTS?? HISTORICAL RESULTS?? Sodium Level?? 03/05/23 16:57?? 144?? 01/27/23?? 140?? Potassium Level?? 03/05/23 16:57?? 3.7?? 01/27/23?? 3.4 ??Low?? Chloride Level?? 03/05/23 16:57?? 108 ??High?? 01/27/23?? 107?? CO2?? 03/05/23 16:57?? 22?? 01/27/23?? 29?? Alk Phos?? 03/05/23 16:57?? 247 ??High?? 01/27/23?? 261 ??High?? AST?? 03/05/23 16:57?? 22?? 01/27/23?? 58 ??High?? ALT?? 03/05/23 16:57?? 30?? 01/27/23?? 91 ??High?? BUN?? 03/05/23 16:57?? 27 ??High?? 01/27/23?? 22 ??High?? Glucose Level?? 03/05/23 16:57?? 95?? 01/27/23?? 109?? Creatinine Level?? 03/05/23 16:57?? 1.67 ??High?? 01/27/23?? 1.71 ??High?? eGFR AA?? 03/05/23 16:57?? 44?? 01/27/23?? 43?? eGFR Non-AA?? 03/05/23 16:57?? 36?? 01/27/23?? 35?? Calcium Level?? 03/05/23 16:57?? 9.2?? 01/27/23?? 9.1?? Protein Total?? 03/05/23 16:57?? 7.6?? 01/27/23?? 6.9?? Albumin Level?? 03/05/23 16:57?? 3.6?? 01/27/23?? 3.0 ??Low?? Bilirubin Total?? 03/05/23 16:57?? 0.8?? 01/27/23?? 0.9?? Anion Gap?? 03/05/23 16:57?? 18 ??High?? 01/27/23?? 7? UA Macroscopic?? LATEST RESULTS?? HISTORICAL RESULTS?? Urine Volume?? 03/05/23 15:55?? 12?? 02/11/23?? 12?? UA Color?? 03/05/23 15:55?? Yellow?? 02/11/23?? Yellow?? UA Appear?? 03/05/23 15:55?? Clear?? 02/11/23?? Slightly Hazy?? UA Glucose?? 03/05/23 15:55?? Normal?? 02/11/23?? Normal?? UA Bili?? 03/05/23 15:55?? Negative?? 02/11/23?? Negative?? UA Ketones?? 03/05/23 15:55?? Negative?? 02/11/23?? Negative?? UA Spec Grav?? 03/05/23 15:55?? 1.020?? 02/11/23?? 1.005?? UA Blood?? 03/05/23 15:55?? Negative?? 02/11/23?? Trace Abnormal?? UA pH?? 03/05/23 15:55?? 5.0?? 02/11/23?? 7.0?? UA Protein?? 03/05/23 15:55?? Negative?? 02/11/23?? Negative?? UA Urobilinogen?? 03/05/23 15:55?? Normal?? 02/11/23?? Normal?? UA Nitrite?? 03/05/23 15:55?? Negative?? 02/11/23?? Negative?? UA Leuk Est?? 03/05/23 15:55?? 75 Abnormal?? 02/11/23?? Negative?? UA Culture Ind?.?? 03/05/23 15:55?? Indicated Abnormal?? 02/11/23?? Not Indicated? UA Microscopic?? LATEST RESULTS?? HISTORICAL RESULTS?? UA WBC?? 03/05/23 15:55?? 6-10 Abnormal?? 02/11/23?? None?? UA RBC?? 03/05/23 15:55?? None?? 02/11/23?? 0-3?? UA Squam Epithelial?? 03/05/23 15:55?? Few?? 02/11/23?? Occasional?? UA Yeast?? 03/05/23 15:55?? None Seen?? 02/11/23?? None Seen?? UA Mucous?? 03/05/23 15:55?? None Seen?? 02/11/23?? None Seen?? UA Bacteria?? 03/05/23 15:55?? Occasional Abnormal?? 02/11/23?? Occasional Abnormal?? UA Hyal Cast?? 03/05/23 15:55?? 1-3?? 02/11/23?? 0-2?? UA WBC Clumps?? 03/05/23 15:55?? Occasional? Infectious Disease?? LATEST RESULTS?? HISTORICAL RESULTS?? Adenovirus RespP-BFire?? 03/05/23 15:58?? Not Detected?? 05/26/22?? Not Detected?? Bordetella parapertussis RespP-BFire?? 03/05/23 15:58?? Not Detected?? 05/26/22?? Not Detected?? Bordetella pertussis RespP-BFire?? 03/05/23 15:58?? Not Detected?? 05/26/22?? Not Detected?? Chlamydophila pneumoniae RespP-BFire?? 03/05/23 15:58?? Not Detected?? 05/26/22?? Not Detected?? Coronavirus 229E (Not COVID-19) RP-BFire?? 03/05/23 15:58?? Not Detected?? 05/26/22?? Not Detected?? Coronavirus HKU1 (Not COVID-19) RP-BFire?? 03/05/23 15:58?? Not Detected?? 05/26/22?? Not Detected?? Coronavirus NL63 (Not COVID-19) RP-BFire?? 03/05/23 15:58?? Not Detected?? 05/26/22?? Not Detected?? Coronavirus OC43 (Not COVID-19) RP-BFire?? 03/05/23 15:58?? Not Detected?? 05/26/22?? Not Detected?? SARS-CoV-2 (COVID-19) RP-BFire?? 03/05/23 15:58?? Not Detected?? 05/26/22?? Not Detected?? Human Metapneumonovirus RespP-BFire?? 03/05/23 15:58?? Not Detected?? 05/26/22?? Not Detected?? Human Rhinovirus/Enterovirus RespP-BFir?? 03/05/23 15:58?? Not Detected?? 05/26/22?? Not Detected?? Influenza A RespP-BFire?? 03/05/23 15:58?? Not Detected?? 05/26/22?? Not Detected?? Influenza B RespP-BFire?? 03/05/23 15:58?? Not Detected?? 05/26/22?? Not Detected?? Mycomplasma pneumoniae RespP-BFire?? 03/05/23 15:58?? Not Detected?? 05/26/22?? Not Detected?? Parainfluenza Virus 1 RespP-BFire?? 03/05/23 15:58?? Not Detected?? 05/26/22?? Not Detected?? Parainfluenza Virus 2 RespP-BFire?? 03/05/23 15:58?? Not Detected?? 05/26/22?? Not Detected?? Parainfluenza Virus 3 RespP-BFire?? 03/05/23 15:58?? Not Detected?? 05/26/22?? Not Detected?? Parainfluenza Virus 4 RespP-BFire?? 03/05/23 15:58?? Not Detected?? 05/26/22?? Not Detected?? Respiratory Syncytial Virus RespP-BFire?? 03/05/23 15:58?? Not Detected?? 05/26/22?? Not Detected?? Streptococcus A?? 03/05/23 15:58?? Positive Abnormal?? 07/16/22?? Negative? Electronically Signed on 03/05/23 05:42 PM Andrew Francis DO Patient Care team information Care Team Personnel Name: Jessee Jones [employer]ANDFILL GAS TECHNICIAN Position: Physician Member Role: Nurse Practitioner Address: Address: [address] [facility], [address] [place], [place] [address]- Name: Latoya Marquez [employer]ANDFILL G[employer] TECHNICIAN Position: Physician Member Role: Nurse Practitioner Address: Address: [address] [place] [address]- Name: Leonila Gonzalez [employer]ANDFILL G[employer] TECHNICIAN Position: Physician Member Role: Nurse Practitioner Address: Address: [address] [place] [address]- Name: Beth Brandt [employer]ANDFILL G[employer] TECHNICIAN Position: Physician Member Role: Nurse Practitioner Address: Address: [address] [place] [address] [place] [address] Name: Hermes Ramirez MD Position: Physician Member Role: Primary Care Physician Address: Address: [address] [place] [address], [address] [place] [address]- Name: Anamika Gore MD Position: Physician - Women's Health Member Role: Informed Provider Name: Pillo Moe [employer]AND[employer] G[employer] TECHNICIAN Position: Physician Member Role: Nurse Practitioner Address: Address: [address] [facility], [address] [facility] Name: Carson Hood RN Position: Nurse Member Role: ED Nurse Name: Tori Villalpando RN Position: Nurse Member Role: Registered Nurse Name: Andrew Francis DO Position: Physician Member Role: Admitting Physician Care Team Related Persons Name: STACIA JONES Address: Home [address] [place] [phone] Name: ROBYN JAMA
--- OUTSIDE RECORDS SUMMARY | 2024-03-20 11:49 | XMS_ITS | Continuity of Care Document ---
Author Organization [facility] Address [address] [place] [address] Care Team Providers Care Game Protector Name Role Phone Hermes Ramirez Primary Care Physician Encounter [facility] [id number] Date(s): 12/10/21 - 12/10/[address] [address] Encounter Diagnosis Headache, migraine, intractable(Discharge Diagnosis) - 12/10/21 Migraine, unspecified, not intractable, without status migrainosus(Final) [...] Refill(s), Pharmacy: [facility], [place], [facility], cm, 09/13/21 23:53:00 CDT, Height/Length [...] needed, # 12 cap, 0 Refill(s), Pharmacy: [place], [place], 157, cm, 11/04/21 20:02:00 CDT, Height/Length Dosing, 73, kg, 11/04/21 20:02:00 CDT, Weight Dosing Start Date: 11/04/21 Status: Ordered cefaclor 500 mg oral tablet, extended release 500 mg = 1 tab, Oral, BID, # 20 tab, 0 Refill(s), Pharmacy: [place], [place], [address], cm, 11/18/21 23:46:00 CDT, Height/Length Dosing, 73, kg, 11/18/21 23:46:00 CDT, Weight Dosing Start Date: 11/19/21 Stop Date: 11/29/21 Status: Ordered Fioricet with Codeine 50 mg-300 mg-40 mg-30 mg oral capsule 1 cap, Oral, every 4 hr, PRN as needed, # 12 cap, 0 Refill(s), Pharmacy: [place], [place], 157.[address], cm, 11/29/21 8:04:00 CDT, Height/Length [...] BID, # 180 tab, 3 Refill(s), Pharmacy: [place], [place], [address], cm, 10/22/20 21:26:00 CDT, Height/Length [...] nausea/vomiting, # 12 tab, 0 Refill(s), Pharmacy: [place], [address], cm, 11/04/21 20:02:00 CDT, Height/Length [...] nausea/vomiting, # 20 tab, 0 Refill(s), Pharmacy: [place], [place], [address], cm, 09/29/21 23:03:00 CDT, Height/Length [...] Oral [35.8-37.3 Deg C] 36.7 Deg C (12/10/21 12:10 PM) Peripheral Pulse Rate [60-100 bpm] 84 bp m (12/10/21 12:10 PM) Respiratory Rate [12-24 br/min] 20 br/mi n (12/10/21 12:10 PM) Blood Pressure [90-140/60-90 mmHg] 148/9 2mmHg *HI* (12/10/21 12:10 PM) Weight Dosing 72.00 kg (12/10/21 12:23 PM) Weight Estimated 72.00 kg (12/10/21 12:10 PM) Height/Length Dosing 157.000 cm (12/10/21 12:23 PM) Height/Length Estimated 157.000 cm (12/10/21 12:10 PM) Social History Social History Type Response Tobacco Current everyday tob acco user Tobacco Use:. Sex Hospital Discharge Instructions Patient Education 12/10/2021 12:28:04 Chronic Migraine Headache, Qzhx-xa-Tjcy Chronic Migraine Headache A migraine headache is [...] these instructions at home: Medicines ??? Take becv-rmk-fryzhtl and prescription medicines only as told by [...] Migraine Patients (CHAMP): headachemigraine.org ??? Citizen Of [place] Migraine Foundation: americanmigrainefoundation.org ??? National Headache Foundation: [...] 2021 [employer] Follow Up Care 12/10/2021 12:10:41 With:Hermes Ramirez MD Address: [address] [place] [address], [address] [place] [address]- When:1 week Comments:Continue other home medications. Patient Care team information Personnel Name: Hermes Ramirez MD Address: Address: [address] [place] [address], [address]
--- OUTSIDE RECORDS SUMMARY | 2024-03-20 11:49 | XMS_ITS | Continuity of Care Document ---
Author Organization [facility] Address [address] [place] [address] Care Team Providers Care Lube Worker Name Role Phone Ashley Hermes Chris Primary Care Physician Encounter [facility] [id number] Date(s): 11/22/21 - 11/22/21 [address] [place] [address] [place] [address] [place] Encounter Diagnosis Ear drainage right(Discharge Diagnosis) - 11/22/21 Migraine headache(Discharge Diagnosis) - 11/22/21 Discharge Disposition: Home or Self Care Attending [...] Appointments Diagnostic Tests Pending * Ear Culture 11/22/21 Functional Status 11/22/21 Other exposure to Infectious Disease Non e [...] wheezing, # 6.7 g, 0 Refill(s), Pharmacy: [facility], [place], 73, cm, 09/13/21 23:53:00 CDT, Height/Length [...] needed, # 12 cap, 0 Refill(s), Pharmacy: [place], [place], [address], cm, 11/04/21 20:02:00 CDT, Height/Length Dosing, 73, kg, 11/04/21 20:02:00 CDT, Weight Dosing Start Date: 11/04/21 Status: Ordered cefaclor 500 mg oral tablet, extended release 500 mg = 1 tab, Oral, BID, # 20 tab, 0 Refill(s), Pharmacy: [place], [place], [address], cm, 11/18/21 23:46:00 CDT, Height/Length [...] BID, # 180 tab, 3 Refill(s), Pharmacy: [place], [place], [address], cm, 10/22/20 21:26:00 CDT, Height/Length Dosing, 74, kg, 10/22/20 21:26:00 CDT, Weight Dosing Start Date: 12/18/20 Status: Ordered ondansetron 4 mg oral tablet, disintegrating 4 mg = 1 tab, Oral, every 6 hr, PRN nausea/vomiting, # 12 tab, 0 Refill(s), Pharmacy: [place], [place], [address], cm, 11/04/21 20:02:00 CDT, Height/Length [...] nausea/vomiting, # 20 tab, 0 Refill(s), Pharmacy: [place], [place], [address], cm, 09/29/21 23:03:00 CDT, Height/Length [...] Oral [35.8-37.3 Deg C] 36.9 Deg C (11/22/21 5:05 PM) Peripheral Pulse Rate [60-100 bpm] 101 b pm *HI* (11/22/21 5:05 PM) Respiratory Rate [12-24 br/min] 20 br/mi n (11/22/21 5:05 PM) Blood Pressure [90-140/60-90 mmHg] 142/8 3mmHg *HI* (11/22/21 5:05 PM) Weight Dosing 72.57 kg (11/22/21 5:27 PM) Weight Estimated 72.57 kg (11/22/21 5:05 PM) Height/Length Dosing 157.480 cm (11/22/21 5:27 PM) Height/Length Estimated 157.480 cm (11/22/21 5:05 PM) Social History Social History Type Response Smoking Status 5-9 cigarettes (betw een 1/4 to 1/2 pack)/day in last 30 days entered on: 05/12/21 Sex Hospital Discharge Instructions Patient Education 11/22/2021 17:40:01 Migraine Headache, Mjjo-lq-Lkyc Migraine Headache A migraine headache is a [...] these instructions at home: Medicines ??? Take zrfs-sog-kwhdjwr and prescription medicines only as told by your doctor. ??? Ask your doctor if the medicine prescribed to you: ??? Requires you to avoid driving or using heavy machinery. ??? Can cause trouble pooping (constipation). You may need to take these steps to prevent or treat trouble pooping: ??? Drink enough fluid to keep your pee (urine) pale yellow. ??? Take knat-cdr-ofylypq or prescription medicines. ??? Eat foods that [...] provider. Document Revised: 06/28/2019 Document Reviewed: 04/18/2019 [employer] Patient Education ?? 2020 [employer]. 11/22/2021 17:39:58 Ear Drainage, Nzxt-ex-Nqtu Ear Drainage Ear drainage means that ear wax, pus, blood, or other fluid comes out of the ear (discharge). Follow these instructions at home: Watch for changes in your ear drainage. Let your doctor know about them. Take these actions to relieve your symptoms: Protect your ear ??? Do not use cotton-tipped swabs in your ear. Do not put any other objects into your ear. ??? Do not swim until your doctor says it is okay. ??? Before you shower, cover a cotton ball with petroleum jelly and put that into your ear. This helps to keep water out of your ear. ??? Wash your hands before and after you touch your ears. General instructions ??? Take frdg-maw-jzzjoyg and prescription medicines only as told by your doctor. ??? Avoid being around smoke. ??? Keep all follow-up visits as told by your doctor. This is important. Contact a doctor if: ??? You have more drainage. ??? You have ear pain. ??? You have a fever. ??? Your drainage is not getting better with treatment. ??? Your ear drainage is bloody, white, clear, or yellow. ??? Your ear is red or swollen. Get help right away if: ??? You have very bad ear pain. ??? You have a very bad headache. ??? You throw up (vomit). ??? You feel dizzy. ??? You have a seizure. ??? You have new hearing loss. Summary ??? Ear drainage means that ear wax, pus, blood, or other fluid is coming out of the ear. ??? Watch for changes in your symptoms. Tell your doctor about them. Follow what your doctor tells you to do. ??? Talk to your doctor if you have more drainage, bloody drainage, ear pain, a fever, or swelling. ??? Get help right away if you are throwing up, have very bad ear pain, have a very bad headache, feel dizzy, have a seizure, or have new hearing loss. This information is not intended to replace advice given to you by your health care provider. Make sure you discuss any questions you have with your health care provider. Document Revised: 09/25/2018 Document Reviewed: 09/25/2018 [employer] Patient Education ?? 2020 [employer] Follow Up Care 11/22/2021 17:05:06 With:Hermes Ramirez MD Address: [address] [place] [address], [address] [place] [address]- When:2 to 4 days Comments:Also instructed to follow-up with ENT.?? Start taking Ceclor as prescribed 500 mg twice a day; if??cannot get the prescription instructed patient to continue with the Augmentin that was prescribed before??and that she stopped several days ago.?? Return to ED if symptoms worsen. Patient Care team information Personnel Name: Hermes Ramirez MD Address: Address: [address] [place] [address], [address]
--- OUTSIDE RECORDS SUMMARY | 2024-03-20 11:49 | XMS_ITS | Continuity of Care Document ---
Author Organization [facility] Address [address] [place] [address] Care Team Providers Care Pneumatic Jacketer Name Role Phone Hermes Ramirez Primary Care Physician Encounter [facility] [id number] Date(s): 11/19/19 - 11/19/[address] [address]- Encounter Diagnosis Hx of migraine headaches(Discharge Diagnosis) - 11/19/19 Migraine, unspecified, not intractable, without status migrainosus(Final) - Discharge Disposition: Home or Self Care Attending Physician: Shawna Puckett MD Admitting Physician: Shawna Puckett MD Allergies, Adverse Reactions, Alerts Substance Reaction Severity Status erythromycin Medication interaction Activ e aspirin Medication interaction Activ e Toradol Kidney failure as a complication of care Active Assessment and Plan Future Scheduled Tests Laboratory* COVID-19 Testing Send Out - [facility] 10/25/19 Immunizations Given and Recorded Vaccine Date [...] pain, # 2.5 mL, 0 Refill(s), Pharmacy: [facility][id number] Start Date: 12/04/19 Stop Date: 01/03/20 Status: Ordered Diflucan 150 mg oral tablet 150 mg = 1 tab, Oral, Once, # 1 tab, 1 Refill(s), Pharmacy: [facility][id number] Start Date: 12/02/19 Status: Ordered Metoprolol Succinate ER 25 mg oral tablet, extended release 25 mg = 1 tab, Oral, BID, TAKE 1 TABLET BY MOUTH TWICE A DAY, # 60 tab, 5 Refill(s), [facility]: [id number] Start Date: 10/09/19 Stop Date: 04/06/20 Status: Ordered Prograf 2 mg =, Oral, every 12 hr, 0 Refill(s) Start Date: 12/18/18 Status: Ordered promethazine 25 mg oral tablet 25 mg =, Oral, every 6 hr, PRN nausea/vomiting, # 20 tab, 0 Refill(s), Pharmacy: [facility][id number] Start Date: 04/28/19 Stop Date: 05/03/19 Status: Ordered sodium bicarbonate 650 mg oral tablet 1,300 mg = 2 tab, Oral, TID, # 60 tab, 0 Refill(s) Start Date: 12/18/18 Status: Ordered tiZANidine 2 mg oral capsule 2 mg = 1 cap, Oral, every 8 hr, PRN as needed for muscle spasm, # 90 cap, 0 Refill(s), [facility]acy: [id number] Start Date: 09/27/19 Stop Date: 10/27/19 [...] Oral [35.8-37.3 Deg C] 36.6 Deg C (11/19/19 7:23 PM) Peripheral Pulse Rate [60-100 bpm] 75 bp m (11/19/19 7:23 PM) Respiratory Rate [14-20 br/min] 20 br/mi n (11/19/19 7:23 PM) Blood Pressure [90-140/60-90 mmHg] 164/9 6mmHg *HI* (11/19/19 7:34 PM) 165/105mmHg *HI* (11/19/19 7:23 PM) Weight 77.11 kg (11/19/19 7:23 PM) Weight Dosing 77.11 kg (11/19/19 7:32 PM) Height 157.000 cm (11/19/19 7:23 PM) Height/Length Measured (inches) 157.000 cm (11/19/19 7:23 PM) Height/Length Dosing 157.000 cm (11/19/19 7:32 PM) Body Mass Index Estimated 31 (11/19/19 7:23 PM) Social History Social History Type Response Smoking Status 4 or less cigarettes (less than 1/4 pack)/day in last 30 days entered on: 07/16/19 Sex Hospital Discharge Instructions Follow Up Care 11/19/2019 19:23:35 With:Follow up with primary care provider Address: When:1 to 2 days
--- OUTSIDE RECORDS SUMMARY | 2024-03-20 11:49 | XMS_ITS | Continuity of Care Document ---
Author Organization [facility] Address [address] [place] [address] Care Team Providers Care Spray Pilot Name Role Phone Hermes Ramirez Primary Care Physician Encounter [facility] [id number] Date(s): 05/01/22 - 05/01/[address] [address] [place] Discharge Disposition: Home or [...] Pending * Tacrolimus (FK506), Blood LC/MS LC 05/01/22 * Sirolimus (Rapamune), Blood LC 05/01/22 Future Scheduled Tests Laboratory* Giardia lamblia Ag, [...] wheezing, # 6.7 g, 0 Refill(s), Pharmacy: [place], [place], 73, cm, 09/13/21 23:53:00 CDT, Height/Length [...] needed, # 12 cap, 0 Refill(s), Pharmacy: [place], [place], 157, cm, 11/04/21 20:02:00 CDT, Height/Length [...] 18:45:00CST, Height/Length Dosing, 72.57, kg, 02/07/22 18:45:00 PPAP COORDINATOR, Weight Dosing Start Date: 02/13/22 Status: Ordered oseltamivir 30 mg oral capsule 30 mg = 1 cap, Oral, BID, # 10 cap, 0 Refill(s), Pharmacy: [place], [place], [address], cm, 03/16/22 18:01:00 PPAP COORDINATOR, Height/Length Dosing, 77.11, kg, 03/16/22 18:01:00 PPAP COORDINATOR, Weight Dosing Start Date: 03/16/22 Status: Ordered Pepcid 20 mg oral tablet 20 mg = 1 tab, Oral, BID, 0 Refill(s) Start Date: 09/29/20 Status: Ordered Phenergan 25 mg oral tablet 25 mg = 1 tab, Oral, every 6 hr, PRN as needed for nausea/vomiting, # 20 tab, 0 Refill(s), Pharmacy: [facility], [place], [address], cm, 09/29/21 23:03:00 CDT, Height/Length Dosing, [...] Results Laboratory List Name Date Automated Diff 05/01/22 CBC w/ Diff 05/01/22 Comprehensive Metabolic Panel 05/01/22 GGT 05/01/22 Most recent to oldest [Reference Range]: 1 WBC [4.0-11.5 K/mcL] 5.9 K/mcL (05/01/22 6:37 AM) RBC [4.20-5.40 x10^6/mcL] 3.73 x10^6/mcL *LOW* (05/01/22 6:37 AM) Neutro Auto 68.3 % *NA* (05/01/22 6:37 AM) Lymph Auto 21.5 % *NA* (05/01/22 6:37 AM) Cherokee Auto 7.0 % *NA* (05/01/22 6:37 AM) Basophil Auto 0.2 % *NA* (05/01/22 6:37 AM) BUN [7-18 mg/dL] 23 mg/dL *HI* (05/01/22 6:37 AM) Glucose Level [70-110 mg/dL] 97 mg/dL (05/01/22 6:37 AM) Potassium Level [3.5-5.1 mmol/L] 3.4 mmo l/L *LOW* (05/01/22 6:37 AM) Baso Absolute [0.0-0.1 x10^3/mcL] 0.0 x1 0^3/mcL (05/01/22 6:37 AM) MCV [78.0-100.0 fL] 90.9 fL (05/01/22 6:37 AM) AST [15-37 unit/L] 19 unit/L (05/01/22 6:37 AM) ALT [12-78 unit/L] 30 unit/L (05/01/22 6:37 AM) MCHC [29.0-37.5 g/dL] 34.5 g/dL (05/01/22 6:37 AM) Sodium Level [136-145 mmol/L] 143 mmol/L (05/01/22 6:37 AM) Lymph Absolute [0.8-5.8 x10^3/mcL] 1.3 x 10^3/mcL (05/01/22 6:37 AM) Hct [36.0-48.0 %] 33.9 % *LOW* (05/01/22 6:37 AM) Calcium Level [8.5-10.1 mg/dL] 8.7 mg/dL (05/01/22 6:37 AM) Cherokee Absolute [0.1-1.5 x10^3/mcL] 0.4 x1 0^3/mcL (05/01/22 6:37 AM) Albumin Level [3.4-5.0 g/dL] 3.7 g/dL (05/01/22 6:37 AM) Protein Total [6.4-8.2 g/dL] 7.3 g/dL (05/01/22 6:37 AM) MCH [27.0-34.0 pg] 31.4 pg (05/01/22 6:37 AM) Neutro Absolute [1.5-8.1 x10^3/mcL] 4.0 x10^3/mcL (05/01/22 6:37 AM) Bilirubin Total [0.0-1.0 mg/dL] 0.5 mg/d L (05/01/22 6:37 AM) Hgb [12.0-16.0 g/dL] 11.7 g/dL *LOW* (05/01/22 6:37 AM) Alk Phos [46-130 unit/L] 253 unit/L *HI* (05/01/22 6:37 AM) MPV [6.0-10.0 fL] 10.3 fL *HI* (05/01/22 6:37 AM) Platelets [150-450 K/mcL] 115 K/mcL *LOW* (05/01/22 6:37 AM) CO2 [21-32 mmol/L] 24 mmol/L (2/12/23 6:37 AM) Eos Absolute [0.0-0.5 x10^3/mcL] 0.2 x10 ^3/mcL (05/01/22 6:37 AM) GGT [5-55 unit/L] 181 unit/L *HI* (05/01/22 6:37 AM) eGFR Non-AA 40 *NA* (05/01/22 6:37 AM) eGFR AA 49 *NA* (05/01/22 6:37 AM) Chloride Level [97-107 mmol/L] 109 mmol/ L *HI* (05/01/22 6:37 AM) RDW-CV [11.5-15.0 %] 11.4 % *LOW* (05/01/22 6:37 AM) Imm Gran Absolute [0.0-0.1 x10^3/mcL] 0. 0 x10^3/mcL (05/01/22 6:37 AM) Imm Gran Auto 0.3 % *NA* (05/01/22 6:37 AM) NRBC Auto 0.0 % *NA* (05/01/22 6:37 AM) NRBC Absolute [0.0-0.0 x10^3/mcL] 0.0 x1 0^3/mcL (05/01/22 6:37 AM) Creatinine Level [0.60-1.30 mg/dL] 1.52 mg/dL *HI* (05/01/22 6:37 AM) Anion Gap [5-15 mmol/L] 13 mmol/L (05/01/22 6:37 AM) Eos, Auto 2.7 % *NA* (05/01/22 6:37 AM) Social History Social History Type Response Smoking Status 5-9 cigarettes (betw een 1/4 to 1/2 pack)/day in last 30 days entered on: 05/12/21 Sex Patient Care team information Care Team Personnel Name: Jessee Jones AIR CONDITIONING SERVICE TECHNICIAN Position: Physician Member Role: Nurse Practitioner Address: Address: [address] [place] [address], [address] Name: Latoya Marquez AIR CONDITIONING SERVICE TECHNICIAN Position: Physician Member Role: Nurse Practitioner Address: Address: [address] [place] [address] Name: Leonila Gonzalez AIR CONDITIONING SERVICE TECHNICIAN Position: Physician Member Role: Nurse Practitioner Address: Address: [address] [place] [address]- Name: Beth Brandt AIR CONDITIONING SERVICE TECHNICIAN Position: Physician Member Role: Nurse Practitioner Address: Address: [address] [place] [id number] [place] Name: Hermes aRmirez MD Position: Physician Member Role: Informed Provider Address: Address: [address] [place] [address], [address] [place] [address]- Name: Pillo Moe AIR CONDITIONING SERVICE TECHNICIAN Position: Physician Member Role: Nurse Practitioner Address: Address: [address] [place] [address], [facility] Care Team Related Persons Name: STACIA JONES Address: Home [address], [place] [id number] Name: ROBYN JAMA Address: Home
--- OUTSIDE RECORDS SUMMARY | 2024-03-20 11:49 | XMS_ITS | Continuity of Care Document ---
Author Organization [facility] Address [address] [place] [address] Care Team Providers Care Patient Clerical Assistant Name Role Phone Hermes Ramirez Primary Care Physician [phone] Encounter ONOFRE [id number] Date(s): 09/27/21 - 09/27/[address] [id number] Encounter Diagnosis Migraine headache(Discharge Diagnosis) - 09/27/21 Urinary tract infection in female(Discharge Diagnosis) - 09/27/21 Discharge Disposition: Home or Self Care Attending Physician: Felicia Roach MD Admitting Physician: Felicia Roach MD Allergies, Adverse Reactions, Alerts Substance Reaction Severity Status gentamicin Moderate Active erythromycin Medication interaction Activ e aspirin Medication interaction Activ e Toradol Kidney failure as a complication of care Active NSAIDs Severe Active Assessment and Plan Diagnostic Tests Pending * Urine Culture 09/27/21 Immunizations Given and Recorded Vaccine Date Status [...] hr, # 20 tab, 0 Refill(s), Pharmacy: [facility] - [place], [place], [address], cm, 09/13/21 23:53:00 CDT, Height/Length Dosing, 157, kg, 09/13/21 23:53:00 CDT, Weight Dosing Start Date: 09/14/21 Stop Date: 09/24/21 Status: Ordered albuterol 90 mcg/inh aerosol inhaler 1 puffs, Inhale, every 4 hr, PRN as needed for wheezing, # 6.7 g, 0 Refill(s), Pharmacy: [place], [place], [address], cm, 09/13/21 23:53:00 CDT, Height/Length [...] TID, # 21 cap, 0 Refill(s), Pharmacy: [place], [place], [address], cm, 09/27/21 22:29:00 CDT, Height/Length Dosing, 73, kg, 09/27/21 22:29:00 CDT, Weight Dosing Start Date: 09/27/21 Stop Date: 10/04/21 Status: Ordered codeine-guaifenesin 7.5 mg-225 mg/5 mL oral liquid 7.5 mL, Oral, every 6 hr, PRN as needed for cough, # 120 mL, 0 Refill(s), Pharmacy: [place], [place], [address], cm, 09/13/21 23:53:00 CDT, Height/Length Dosing, 157, kg, 09/13/21 23:53:00 CDT, Weight Dosing Start Date: 09/14/21 Status: Ordered Diflucan 150 mg oral tablet 150 mg = 1 tab, Oral, Once, # 1 tab, 0 Refill(s), Pharmacy: [place], [place], [address], cm,09/13/21 23:53:00 CDT, Height/Length Dosing, [...] BID, # 180 tab, 3 Refill(s), Pharmacy: [place], [place], [address], cm, 10/22/20 21:26:00 CDT, Height/Length [...] Laboratory List Name Date Test Urine Qual 09/27/21 Urinalysis with Culture if Indicated 09/17 04/10 .Urine Volume 09/27/21 Urinalysis Microscopic 09/27/21 Most recent to oldest [Reference Range]: 1 UA Color Yellow (09/27/21 10:24 PM) UA WBC [0-5] 21-30 *ABN* (09/27/21 10:24 PM) UA Urobilinogen [Normal mg/dL] Normal mg /dL (09/27/21 10:24 PM) UA Bili [Negative mg/dL] Negative mg/dL (09/27/21 10:24 PM) UA Ketones [Negative mg/dL] Negative mg/ dL (09/27/21 10:24 PM) UA RBC [0-3] 6-10 *ABN* (09/27/21 10:24 PM) UA Leuk Est [Negative Guille/mcL] 500 Guille/m cL *ABN* (09/27/21 10:24 PM) UA Nitrite [Negative] Negative (09/27/21 10:24 PM) UA Glucose [Normal mg/dL] Normal mg/dL (09/27/21 10:24 PM) UA Bacteria [None Seen] Occasional *ABN* (09/27/21 10:24 PM) UA Protein [Negative mg/dL] Trace mg/dL *ABN* (09/27/21 10:24 PM) UA Blood [Negative Rocael/mcL] 250 Rocael/mcL *ABN* (09/27/21 10:24 PM) UA Mucous [None Seen] None Seen (09/27/21 10:24 PM) UA Spec Grav 1.005 (09/27/21 10:24 PM) UA Squam Epithelial [None Seen] Occasion al (09/27/21 10:24 PM) UA pH [5.0-9.0] 5.0 (09/27/21 10:24 PM) UA Appear [Clear] Hazy (09/27/21 10:24 PM) UA Culture Ind?. Indicated *ABN* (09/27/21 10:24 PM) Urine Srce Clean Catch (09/27/21 10:24 PM) Urine Volume 12 mL (09/27/21 10:24 PM) U hCG Ql [Negative] Negative (09/27/21 10:24 PM) UA Yeast [None Seen] None Seen (09/27/21 10:24 PM) Vital Signs Most recent to oldest [Reference Range]: 1 Temperature Oral [35.8-37.3 Deg C] 36.8 Deg C (09/27/21 10:21 PM) Peripheral Pulse Rate [60-100 bpm] 103 b pm *HI* (09/27/21 10:21 PM) Respiratory Rate [12-24 br/min] 18 br/mi n (09/27/21 10:21 PM) Blood Pressure [90-140/60-90 mmHg] 118/7 9mmHg (09/27/21 10:21 PM) Weight Dosing 73.00 kg (09/27/21 10:29 PM) Weight Estimated 73.00 kg (09/27/21 10:21 PM) Height/Length Dosing 157.000 cm (09/27/21 10:29 PM) Height/Length Estimated 157.000 cm (09/27/21 10:21 PM) Social History Social History Type Response Smoking Status 5-9 cigarettes (betw een 1/4 to 1/2 pack)/day in last 30 days entered on: 05/12/21 Sex Hospital Discharge Instructions Patient Education 09/27/2021 22:35:45 Antibiotic Medicine, Adult, [facility] Antibiotic Medicine, Adult Antibiotic medicines treat infections caused by a type of germ called bacteria. These medicines work by killing the bacteria that make you sick. You should take antibiotic medicines safely and only when needed. When do I need to take antibiotics? You may need antibiotics for: ??? A urinary tract infection (UTI). ??? Strep throat. ??? A sinus infection caused by bacteria. ??? Meningitis. This affects the spinal cord and brain. ??? A bad lung infection. You may start your medicines while your doctor waits for your results on some tests. When your results come back, your doctor may change or stop your medicine based on your test results. When are antibiotics not needed? You do not need these medicines for most common illnesses, such as: ??? A cold. ??? The flu. ??? A sore throat. ??? Mucus being an odd color. ??? Bronchitis. Sometimes, antibiotics are not needed for an infection caused by bacteria. Do not ask for these medicines, or take them, when they are not needed. How long should I take my antibiotic? You need to take all your medicine. Take your antibiotic medicine as told by your doctor. Do not stop taking the antibiotic even if you start to feel better. If you stop taking it too soon: ??? You may feel sick again. ??? Your infection may get harder to treat. Antibiotics need different amounts of time to work. Some treatments last just a few days. Some lastabout a week to 10 days. Sometimes, you may need to take antibiotics for a few weeks to fully treatyour infection. What if I miss a dose? Try not to miss a dose. If you miss a dose, call your doctor or pharmacist. Sometimes, it is okay to take the missed dose as soon as you can. Do not take an extra dose. What are the risks of taking antibiotics? Antibiotics can cause: ??? Allergic attacks. ??? A feeling like you may vomit (nausea). ??? Yeast infections. ??? Liver problems. These medicines can cause an infection called C. diff. This causes watery poop (diarrhea). This happens when antibiotics kill good germs in your gut. This lets C. diff grow. Tell your doctor right away if: ??? You get watery poop while taking your antibiotic. ??? You get watery poop after you stop your antibiotic. C. diff can happen weeks after you stop your medicine. You also have a risk of getting an infection in the future that antibiotics cannot treat (antibiotic-resistant infection). These infections can get very bad. Sometimes, they can be life-threatening. Do antibiotics affect control? control pills may not work. If you take control pills: ??? Keep taking them as normal. ??? Use a second form of control, such as a condom. Do this for as long as told by your doctor. What else should I know about taking antibiotics? You need to take these medicines exactly as told. Make sure to do these things: ??? Take the right amount of medicine at the same time each day. ??? Ask your doctor: ??? How long to wait between doses. ??? If you should take your medicine with food. ??? If you should stay away from some foods, drinks, or medicines. ??? What side effects you should watch for. ??? Use only the medicines that your doctor said to use. Do not use medicines that were given to someone else. ??? Drink a large glass of water when you take your medicine. Drink enough fluid to keep your pee (urine) pale yellow. ??? Ask your pharmacist for a tool to measure your medicine. This may be a syringe, cup, or spoon. ??? Throw out any extra medicine. Follow these instructions at home: ??? Take hela-uuj-rpyousa and prescription medicines as told by your doctor. ??? Return to your normal activities as told by your doctor. Ask your doctor what activities are safe for you. ??? Keep all follow-up visits as told by your doctor. This is important. Contact a doctor if: ??? You feel worse. ??? You have one of these after you start your medicine: ??? New joint pain. ??? New muscle aches. ??? You have side effects from your medicine, such as: ??? Stomach pain. ??? Watery poop. ??? Feeling like you may vomit. ??? White patches in your mouth or throat. Get help right away if: ??? You have a very bad allergic attack. If this happens, stop taking your medicine right away. Youmay get: ??? Hives. These are raised, itchy, red bumps on your skin. ??? Skin rash. ??? Trouble breathing. ??? Breathing that has whistling sounds. ??? Swelling on your body. ??? A dizzy feeling. ??? Vomiting. ??? You have symptoms of liver problems. You may have: ??? Dark pee, or pee that is the color of blood. ??? Yellow skin. ??? Easy bruising. ??? Easy bleeding. ??? You have very bad watery poop. ??? You have cramps in your belly. ??? You have a very bad headache. These symptoms may be an emergency. Do not wait to see if the symptoms will go away. Get medical help right away. Call your local emergency services (911 in the [place] Do not drive yourself to the hospital. Summary ??? Antibiotics are used to treat infections caused by bacteria. ??? Take these medicines safely and only when needed. ??? Your doctor may change or stop your medicine based on your test results. ??? Take all your medicine even when you feel better. This information is not intended to replace advice given to you by your health care provider. Make sure you discuss any questions you have with your health care provider. Document Revised: 12/24/2019 Document Reviewed: 12/24/2019 [employer] Patient Education ?? 2020 [employer] Follow Up Care 09/27/2021 22:21:13 With:Follow up with primary care provider Address: When:2 to 4 days Care Team Personnel Name: Hermes Ramirez MD Address: [address] [place] [address], [address]
--- OUTSIDE RECORDS SUMMARY | 2024-03-20 11:50 | XMS_ITS | Encounter Summary ---
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 and Other (see comment) Other reaction(s): Medication interaction Medication interaction Gentamicin Other (see comment) Medication interaction Ketorolac Other (see comment) Ketorolac Tromethamine Other (see comment) KIDNEY Other reaction(s): Kidney failure as a complication of care. RENAL TOXICITY. Social History Tobacco Use Smoking status: Every Day Current packs/day: 0.50 Average packs/day: 0.5 packs/day for 15.0 years (7.5 ttl pk-yrs) Types: Cigarettes Smokeless tobacco: Never Substance Use Topics Alcohol use: No Past Surgical History: Procedure Laterality Date SECTION INGUINAL HERNIA Bilateral age 5 LIVER TRANSPLANTATION Family History Problem Relation Name Age of Onset Diabetes Neg Hx Travel Exposure: No current facility-administered medications on file prior to encounter. Current Outpatient Medications on File Prior to Encounter Medication Sig albuterol sulfate HFA 108 (90 Base) MCG/ACT inhaler Inhale 2 puffs into the lungs every 4 (four) hours as needed for Wheezing or Shortness of breath. amLODIPine (NORVASC) 5 MG tablet Take 1 tablet (5 mg total) by mouth daily. amoxicillin (AMOXIL) 875 MG tablet Take 1 tablet (875 mg total) by mouth 2 (two) times daily for 10days. azaTHIOprine (IMURAN) 50 MG tablet Take 1 tablet (50 mg total) by mouth daily. doxycycline hyclate (VIBRAMYCIN) 100 MG capsule Take 1 capsule (100 mg total) by mouth 2 (two) times daily for 10 days. ENVARSUS XR 1 MG TABLET SR 24 HR tablet Take 3 tablets (3 mg total) by mouth every morning before breakfast. Takes with 4 mg tablet for total of 7 mg daily ENVARSUS XR 4 MG TABLET SR 24 HR Take 4 mg by mouth daily. Takes with 1 mg tablets x 3 (total dose is 7 mg) gabapentin (NEURONTIN) 600 MG tablet Take 1 tablet (600 mg total) by mouth 2 (two) times daily. ipratropium-albuterol (DUONEB) 0.5-2.5 (3) MG/3ML Solution Take 3 mLs by nebulization every 6 (six)hours as needed. LORazepam (ATIVAN) 0.5 MG tablet Take 1 tablet (0.5 mg total) by mouth. metoprolol succinate ER (TOPROL-XL) 100 MG 24 hr tablet Take 1 tablet (100 mg total) by mouth 2 (two) times a day. predniSONE (DELTASONE) 5 mg tablet Take 1 tablet (5 mg total) by mouth daily. topiramate (TOPAMAX) 100 MG tablet Take 1 tablet (100 mg total) by mouth 2 (two) times daily. venlafaxine (EFFEXOR) 37.5 MG tablet Take 1 tablet (37.5 mg total) by mouth. Principal Problem: Acute CHF ([facility]) SNOMED CT(R): ACUTE CONGESTIVE HEART FAILURE Blood pressure 139/77, pulse 71, temperature 98.1 ??F (36.7 ??C), temperature source Temporal, resp. rate 18, height 1.575 m (5' 2 ), weight 90.7 kg (200 lb), SpO2 96%. Recent Labs 02/19/242007 WBC 8.66 HGB 14.1 HCT 43.0 MCV 107.2* PLT 166 RBC 4.01* Recent Labs 02/19/242007 CO2 21.4 CL 114 GLU 122* K 4.6 NA 141 BUN 29* No results found for this visit on 02/19/24. Imaging as per radiologist: XR CHEST PA+LAT Final Result by User, [id number] (02/18 2001) [address] [address] PATIENT NAME: MISHA BROWNE EXAM: Chest 2 view DATE OF EXAM: 02/19/2024 COMPARISON EXAM: 02/16/2024 INDICATION: Recent pneumonia, short of breath TECHNIQUE: PA and lateral FINDINGS: Mild cardiomegaly. Pulmonary vasculature does not appear significantly congested. No significant acute pulmonary parenchymal opacity. No pleural effusion. No hyperinflation. IMPRESSION: 1. CARDIOMEGALY WITHOUT EVIDENCE OF CHF. Signed: Mike Donnelly MD Referred By: Interpreted By: Mike Donnelly MD, 02/19/2024 7:58 PM ERIC MARQUES MD 02/20/2024 Thank you for choosing [facility] hospitalist service. Please call us if any qts or concerns UIT BENDER UIT BENDER documented in this encounter ED Notes * Dea Rhodes RN - 02/20/2024 2:38 AM CST ED Handoff to Inpatient Note Triage chief complaint: Cough Mental Status: A&O x4 ED Overview: Misha Browne, a 43-year-old female, presents to ED with complaints of chest pain,rib pain, headache, cough. Symptoms started proxy 2 weeks ago, patient recently diagnosed with pneumonia, started on p.o. doxycycline, has 3 days left. Notes little improvement, has been taking p.o. T ylenol, and using albuterol nebulizer, and taking prednisone. History of liver transplant, and kidney transplant. Denies fever, no known sick contacts. He is not vaccinated for COVID-19. Had biofire RPP on 02/15 which was positive only for rhinovirus/enterovirus O2 demands: On room air Vitals: Blood pressure 139/77, pulse 71, temperature 98.1 ??F (36.7 ??C), temperature source Temporal, resp. rate 18, height 1.575 m (5' 2 ), weight 90.7 kg (200 lb), SpO2 96%. Critical lab results: BNP 952 Lines/Drains/Airways: 24G right hand Pending Results: Special equipment needed: Mobility: independent Fall risk: no Sitter: No Family/social needs: Patient Belongings: Isolation: No active isolations Any held meds and reasons: Consults: None If any critical questions, call Dea at [phone] ED Provider Diagnosis: Clinical Impression Acute congestive heart failure, unspecified heart failure type ([facility]) (Primary) Dyspnea Admitting Provider: No admitting provider for patient encounter. 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 Chronic kidney disease Migraine Thrombocytopenia ([facility]) Current Facility-Administered Medications Medication Dose Route Frequency Provider Last Rate Last Admin acetaminophen (TYLENOL) tablet 650 mg 650 mg Oral Q4H PRN Eric Marques MD budesonide (PULMICORT) nebulizer solution 0.5 mg 0.5 mg Nebulization 2 times daily Eric Marques MD dextromethorphan-guaiFENesin ER (MUCINEX DM) 30-600 MG 12 hr tablet 1 tablet 1 tablet Oral BID Eric Marques MD diphenhydrAMINE (BENADRYL) injection 25 mg 25 mg Intravenous Q6H PRN Eric Marques MD heparin (porcine) injection 5,000 Units 5,000 Units Subcutaneous 2 times per day Eric Marques MD ipratropium-albuterol (DUONEB) 0.5-2.5 (3) MG/3ML nebulizer solution 3 mL 3 mL Nebulization Q4H PRNMuhammad Eron Marques MD ipratropium-albuterol (DUONEB) 0.5-2.5 (3) MG/3ML nebulizer solution 3 mL 3 mL Nebulization Q4H Eric Marques MD fgbelfcge-ffbfpxmx-fohalblcjmy (MYLANTA MAXIMUM STRENGTH) 9840-4711-629 mg/30mL suspension 10 mL Oral Q4H PRN Eric Marques MD ondansetron (ZOFRAN) injection 4 mg 4 mg Intravenous Q8H PRN Eric Marques MD oxyCODONE-acetaminophen (PERCOCET) 5-325 MG tablet 1 tablet 1 tablet Oral Q4H PRN Eric Marques MD senna-docusate (SENOKOT-S) 8.6-50 MG tablet 1 tablet 1 tablet Oral Nightly at bedtime Eric Marques MD Current Outpatient Medications Medication Sig Dispense Refill albuterol sulfate HFA 108 (90 Base) MCG/ACT inhaler Inhale 2 puffs into the lungs every 4 (four) hours as needed for Wheezing or Shortness of breath. 6.7 g 0 amLODIPine (NORVASC) 5 MG tablet Take 1 tablet (5 mg total) by mouth daily. amoxicillin (AMOXIL) 875 MG tablet Take 1 tablet (875 mg total) by mouth 2 (two) times daily for 10days. 20 tablet 0 azaTHIOprine (IMURAN) 50 MG tablet Take 1 tablet (50 mg total) by mouth daily. doxycycline hyclate (VIBRAMYCIN) 100 MG capsule Take 1 capsule (100 mg total) by mouth 2 (two) times daily for 10 days. 20 capsule 0 ENVARSUS XR 1 MG TABLET SR 24 HR tablet Take 3 tablets (3 mg total) by mouth every morning before breakfast. Takes with 4 mg tablet for total of 7 mg daily ENVARSUS XR 4 MG TABLET SR 24 HR Take 4 mg by mouth daily. Takes with 1 mg tablets x 3 (total dose is 7 mg) gabapentin (NEURONTIN) 600 MG tablet Take 1 tablet (600 mg total) by mouth 2 (two) times daily. ipratropium-albuterol (DUONEB) 0.5-2.5 (3) MG/3ML Solution Take 3 mLs by nebulization every 6 (six)hours as needed. 360 mL 0 LORazepam (ATIVAN) 0.5 MG tablet Take 1 tablet (0.5 mg total) by mouth. metoprolol succinate ER (TOPROL-XL) 100 MG 24 hr tablet Take 1 tablet (100 mg total) by mouth 2 (two) times a day. predniSONE (DELTASONE) 5 mg tablet Take 1 tablet (5 mg total) by mouth daily. topiramate (TOPAMAX) 100 MG tablet Take 1 tablet (100 mg total) by mouth 2 (two) times daily. venlafaxine (EFFEXOR) 37.5 MG tablet Take 1 tablet (37.5 mg total) by mouth. UIT BENDER * Magan Maddox RN - 02/20/2024 2:30 AM CST Pt states that she need to go to her car to get medicine and smoke a cigarette, pt explained that we could accompany her but if she wanted to go out to her car alone she would need to have her IV removed and check out of the hospital. Pt than began to call specification writer luz marina. Staff Weapons Officer left the room and pt called out for AMA forms. Staff Weapons Officer returned to room to deliver forms and at that time pt began to curse at specification writer and demand someone in charge. Per Mariela Hampton RN it would be acceptable for a tech to escort the pt to her car to retreive her medication with her IV still in place. UIT BENDER * Dea Rhodes RN - 02/20/2024 2:16 AM CST Bed: L2 Expected date: 02/20/24 Expected time: 1:56 AM Means of arrival: Comments: Room 8 UIT BENDER * MAYITO Lyons - 02/19/2024 11:37 PM CST ED NOTE Chief Complaint Chief Complaint Patient presents with Cough History of Present Illness Misha Browne, a 43-year-old female, presents to ED with complaints of chest pain, rib pain, headache, cough. Symptoms started proxy 2 weeks ago, patient recently diagnosed with pneumonia, started on p.o. doxycycline, has 3 days left. Notes little improvement, has been taking p.o. Tylenol, and using albuterol nebulizer, and taking prednisone. History of liver transplant, and kidney transplant. Denies fever, no known sick contacts. He is not vaccinated for COVID-19. Had biofire RPP on 02/15 which was positive only for rhinovirus/enterovirus Medical History ALLERGIES: Review of patient's allergies indicates: Allergen Reactions Azithromycin Unknown Medication interaction Erythromycin Unknown and Other (see comment) Other reaction(s): Medication interaction Medication interaction Gentamicin Other (see comment) Medication interaction Ketorolac Other (see comment) Ketorolac Tromethamine Other (see comment) KIDNEY Other reaction(s): Kidney failure as a complication of care. RENAL TOXICITY. MEDICATIONS: Prior to Admission medications Medication Sig Start Date End Date Taking? Authorizing Provider albuterol sulfate HFA 108 (90 Base) MCG/ACT inhaler Inhale 2 puffs into the lungs every 4 (four) hours as needed for Wheezing or Shortness of breath. 02/12/24 Kris Caruso NP amLODIPine (NORVASC) 10 MG tablet Take 1 tablet (10 mg total) by mouth daily. Default History Genericprovider amoxicillin (AMOXIL) 875 MG tablet Take 1 tablet (875 mg total) by mouth 2 (two) times daily for 10days. 02/12/24 02/22/24 Kris Caruso NP aspirin 81 MG chewable tablet Chew 1 tablet (81 mg total) by mouth daily. Default History Genericprovider azaTHIOprine (IMURAN) 50 MG tablet Take 1 tablet (50 mg total) by mouth daily. Default History Genericprovider baclofen (LIORESAL) 10 MG tablet Take 1 tablet (10 mg total) by mouth 3 (three) times daily. 07/22/23Chuckie Arana MD cycloSPORINE modified (NEORAL) 100 MG capsule Take 175 mg by mouth 2 (two) times daily. Default History Genericprovider doxycycline hyclate (VIBRAMYCIN) 100 MG capsule Take 1 capsule (100 mg total) by mouth 2 (two) times daily for 10 days. 02/12/24 02/22/24 Kris Caruso NP enoxaparin (LOVENOX) 100 mg/mL syringe Inject 1 mL (100 mg total) into the skin daily. 02/10/24 Danish Menjivar MD ENVARSUS XR 1 MG TABLET SR 24 HR tablet Take 3 tablets (3 mg total) by mouth every morning before breakfast. 11/30/23 Default History Genericprovider ENVARSUS XR 4 MG TABLET SR 24 HR Take 4 mg by mouth daily. 11/30/23 Default History Genericprovider gabapentin (NEURONTIN) 300 MG capsule Take 1 capsule (300 mg total) by mouth 2 (two) times daily. Default History Genericprovider ipratropium-albuterol (DUONEB) 0.5-2.5 (3) MG/3ML Solution Take 3 mLs by nebulization every 6 (six)hours as needed. 02/14/24 03/15/24 Randy Diamond MD LORazepam (ATIVAN) 0.5 MG tablet Take 1 tablet (0.5 mg total) by mouth. 10/26/21 Default History Genericprovider metoprolol succinate ER 50 MG 24 hr tablet Take 1 tablet (50 mg total) by mouth. 12/30/19 [facility] oxyCODONE-acetaminophen (PERCOCET) 5-325 MG tablet Take 1 tablet by mouth every 6 (six) hours as needed for Pain. Indications: Acute Pain < 3 Day Supply 02/16/24 Jatnider Lou DNP predniSONE (DELTASONE) 2.5 mg tablet Take 1 tablet (2.5 mg total) by mouth daily. Default History Genericprovider topiramate (TOPAMAX) 100 MG tablet Take 1 tablet (100 mg total) by mouth 2 (two) times daily. 10/27/21 Default History Genericprovider venlafaxine (EFFEXOR) 37.5 MG tablet Take 1 tablet (37.5 mg total) by mouth. 04/21/22 Default HistoryGenericprovider PAST MEDICAL HISTORY: Past Medical History: Diagnosis Date Anemia Biliary atresia (CMS/HCC) congenital Chronic kidney disease Migraine Thrombocytopenia (CMS/HCC) PAST SURGICAL HISTORY: Past Surgical History: Procedure Laterality Date SECTION INGUINAL HERNIA Bilateral age 5 LIVER TRANSPLANTATION FAMILY HISTORY: Family History Problem Relation Name Age of Onset Diabetes Neg Hx SOCIAL HISTORY: Social History Tobacco Use Smoking status: Every Day Current packs/day: 0.50 Average packs/day: 0.5 packs/day for 15.0 years (7.5 ttl pk-yrs) Types: Cigarettes Smokeless tobacco: Never Substance Use Topics Alcohol use: No Drug use: No Physical Exam Filed Vitals: 02/19/24 1921 02/19/24 2300 02/20/24 0020 BP: 138/81 (!) 145/84 139/77 Pulse: 90 74 71 Resp: 18 Temp: 98.1 ??F (36.7 ??C) TempSrc: Temporal SpO2: 100% 97% 96% Weight: 90.7 kg (200 lb) Height: 1.575 m (5' 2 ) Physical Exam Vitals and nursing note reviewed. Constitutional: Appearance: Normal appearance. HENT: Head: Normocephalic and atraumatic. Right Ear: Tympanic membrane normal. Left Ear: Tympanic membrane normal. Nose: Congestion present. Mouth/Throat: Mouth: Mucous membranes are moist. Eyes: Pupils: Pupils are equal, round, and reactive to light. Cardiovascular: Rate and Rhythm: Normal rate and regular rhythm. Pulses: Normal pulses. Pulmonary: Effort: Pulmonary effort is normal. No respiratory distress. Breath sounds: No wheezing. Comments: Coarse breath sounds bilaterally Musculoskeletal: General: Swelling present. Cervical back: Neck supple. Comments: 2+ bilateral lower extremity edema Skin: General: Skin is warm and dry. Neurological: General: No focal deficit present. Mental Status: She is alert and oriented to person, place, and time. Psychiatric: Mood and Affect: Mood normal. Behavior: Behavior normal. Diagnostic Studies / Procedures ELECTROCARDIOGRAMS: No results found for this visit on 02/19/24. LABORATORY STUDIES: Results for orders placed or performed during the hospital encounter of 02/19/24 CBC W/DIFF AUTOMATED Result Value Ref Range WBC 8.66 4.00 - 10.80 x10'3/uL RBC 4.01 (L) 4.10 - 5.40 x10'6/uL HGB 14.1 12.0 - 16.0 G/DL HCT 43.0 36.0 - 47.0 % MCV 107.2 (H) 78.0 - 100.0 FL MCH 35.2 (H) 27.0 - 31.0 PG MCHC 32.8 (L) 33.0 - 36.0 G/DL RDW 13.7 11.5 - 14.5 % PLT 166 150 - 350 x10'3/uL MPV 10.5 (H) 7.4 - 10.4 FL DIFFERENTIAL TYPE AUTOMATED DIFFERENTIAL SEG NEUTROPHILS 75.8 % LYMPHOCYTES 16.5 % MONOCYTES 5.3 % EOSINOPHILS 1.5 % BASOPHILS 0.2 % IMMATURE GRANS % 0.7 % ABS. NEUTROPHILS 6.56 1.60 - 8.30 x10'3/uL ABS. LYMPHOCYTES 1.43 0.80 - 4.70 x10'3/uL ABS. MONOCYTES 0.46 0.00 - 1.50 x10'3/uL ABS. EOSINOPHILS 0.13 0.00 - 0.40 x10'3/uL ABS. BASOPHILS 0.02 0.00 - 0.20 x10'3/uL ABS. IMMATURE GRANULOCYTES 0.06 (H) 0.00 - 0.03 x10'3/uL ABS. NUCLEATED RBC'S 0.00 0.00 - 0.01 x10'3/uL NRBC % 0.0 % BASIC METABOLIC PANEL Result Value Ref Range SODIUM S/P/B 141 136 - 145 MMOL/L POTASSIUM S/P/B 4.6 3.5 - 5.1 MMOL/L CHLORIDE S/P/B 114 97 - 115 MMOL/L CO2 21.4 21.0 - 32.0 MMOL/L GLUCOSE 122 (H) 74 - 106 MG/DL BUN 29 (H) 7 - 18 MG/DL CREATININE S/P/B 1.64 (H) 0.55 - 1.02 MG/DL CALCIUM S/P/B 9.1 8.5 - 10.1 MG/DL ANION GAP 5.6 2.0 - 10.0 MMOL/L OSMOLALITY (CALC) 299 MOSM/KG GFR ESTIMATE 40 (L) >90 ML/MIN/1.73 M2 GFR NOTES GFR REFERENCES: PRO-BRAIN NATRIURETIC PEPTIDE Result Value Ref Range PRO-B TYPE NATRIURETIC PEPTIDE 952 (H) <125 PG/ML IMAGING STUDIES XR CHEST PA+LAT Final Result by User, [id number] (02/18 2001) [place] [address] PATIENT NAME: MISHA BROWNE EXAM: Chest 2 view DATE OF EXAM: 02/19/2024 COMPARISON EXAM: 02/16/2024 INDICATION: Recent pneumonia, short of breath TECHNIQUE: PA and lateral FINDINGS: Mild cardiomegaly. Pulmonary vasculature does not appear significantly congested. No significant acute pulmonary parenchymal opacity. No pleural effusion. No hyperinflation. IMPRESSION: 1. CARDIOMEGALY WITHOUT EVIDENCE OF CHF. Signed: Mike Donnelly MD Referred By: Interpreted By: Mike Donnelly MD, 02/19/2024 7:58 PM ED Course / Medical Decision Making Multiple diagnoses were considered including: Viral croup, viral pneumonia, bacterial pneumonia, COVID-19 infection, influenza, respiratory syncytial virus, acute bronchitis, bronchiolitis, asthma/COPD, upper respiratory infection, cough, congestive heart failure, pulmonary edema, pleural effusion,pneumothorax, pulmonary embolus, among others. Based on my exam and workup diagnosis is most consistent with CHF new onset, dyspnea Medical Decision Making History and physical exam as above Afebrile nontoxic, no acute distress Lungs coarse bilaterally, mild wheeze, lower extremities with 1-2+ pitting edema. CBC with normal WBC, normal hemoglobin, normal platelets. BMP with creatinine 1.69, (stable) BNP elevated 952 Chest x-ray with mild cardiomegaly, no focal consolidation, no pulmonary vascular congestion. Patient discussed with hospitalist Dr. Marques, will admit to inpatient, agrees with 40 mg IV Lasix Troponin pending EKG pending 40 mg IV Lasix pending Plan discussed with patient, agrees with plan of care Admitted-cardiac floor 129-Discussed patient with ER attending Dr. Arana, aware EKG Trope pending, and IV Lasix pendingIV placement. Patient is already admitted to hospitalist service and discussed with hospitalist. ED Course as of 02/20/24132Feb 20, 2024 0052 PRO-B TYPE NATRIURETIC PEPTIDE(!): 952 [WS] ED Course User Index [WS] MAYITO Lyons Medications morphine injection 2 mg (has no administration in time range) furosemide (LASIX) injection 40 mg (has no administration in time range) acetaminophen (TYLENOL) tablet 650 mg (has no administration in time range) senna-docusate (SENOKOT-S) 8.6-50 MG tablet 1 tablet (has no administration in time range) mgwrljuwc-zhfhtkdj-rhjkxzvuyua (MYLANTA MAXIMUM STRENGTH) 8628-2017-382 mg/30mL suspension (has no administration in time range) ondansetron (ZOFRAN) injection 4 mg (has no administration in time range) ipratropium-albuterol (DUONEB) 0.5-2.5 (3) MG/3ML nebulizer solution 3 mL (has no administration intime range) ipratropium-albuterol (DUONEB) 0.5-2.5 (3) MG/3ML nebulizer solution 3 mL (3 mLs Nebulization Given02/20/24 0105) albuterol (PROVENTIL) (2.5 MG/3ML) 0.083% nebulizer solution 5 mg (5 mg Nebulization Given 02/20/24 0106) Clinical Impression Acute congestive heart failure, unspecified heart failure type (CMS/HCC [facility]/HCC) (Primary) Dyspnea Limitations to history/exam/care: None Medical conditions impacting care: Liver transplant, kidney transplant, anemia, anxiety, PUD Social factors impacting care: none External records reviewed: Nephrology 01/18/2024 Consults: none The patient was advised that the workup and exam performed today in the emergency room is not exhaustive and is designed to ascertain whether or not an emergent medical condition exists. It is also intended to assess if the patient's conditions warrants admission to the hospital for further evaluation and treatment, or if the patient is stable enough to be discharged and managed at home, or in anoutpatient setting. The patient has been instructed to follow- up with their primary care physician or appropriate specialist within the period of time indicated for further evaluation and treatment as deemed necessary. Disposition: Admit Current Discharge Medication List Follow-up: No follow-up provider specified. MAYITO Lyons 02/20/2024 MAYITO Lyons 02/20/24 0331 UIT BENDER * Huong Farris NP - 02/19/2024 7:18 PM CST MEDICAL SCREENING EXAM Chief Complaint Chief Complaint Patient presents with Cough Medical Screening Exam Misha Browne is a 43-year-old female who presents to the ED triage with complaints of worsening cough. Recent dx of pneumonia and has been on Doxycyline and has 3 days left with no improvement Medical & Social History Past Medical History: Diagnosis Date Anemia Biliary atresia (CMS/HCC) congenital Chronic kidney disease Migraine Thrombocytopenia (CMS/HCC) Past Surgical History: Procedure Laterality Date SECTION INGUINAL HERNIA Bilateral age 5 LIVER TRANSPLANTATION Family History Problem Relation Name Age of Onset Diabetes Neg Hx Social History Tobacco Use Smoking status: Every Day Current packs/day: 0.50 Average packs/day: 0.5 packs/day for 15.0 years (7.5 ttl pk-yrs) Types: Cigarettes Smokeless tobacco: Never Substance Use Topics Alcohol use: No Drug use: No Physical Exam Vitals: 02/19/24 1921 BP: 138/81 Pulse: 90 Resp: 18 Temp: 98.1 ??F (36.7 ??C) SpO2: 100% Physical Exam Generalized Appearance: No apparent distress. Head: Normocephalic Chest and Respiratory: Airway patent. Able to speak in full sentences and manage secretions Neurologic: Alert and oriented x 3. Triage Plan of Care Patient had an initial medical screening exam by a licensed provider during the Emergency Department triage examination, if clinically appropriate an initial workup has been ordered: ORDERS PLACED: Active Orders Imaging XR CHEST PA+LAT Frequency: Once Number of Occurrences: 1 Occurrences Lab BASIC METABOLIC PANEL Frequency: Once Number of Occurrences: 1 Occurrences CBC W/DIFF AUTOMATED Frequency: Once Number of Occurrences: 1 Occurrences Medications - No data to display Triage Disposition Triage Disposition: Patient was evaluated in triage. Appropriate work up was ordered. At this time,I feel it is appropriate for the patient to be evaluated further and to receive care in the ER. However, no exam room is available in the ER per nursing, patient is being put back in the waiting roomuntil a room is available. Huong Farris NP 02/19/2024 7:18 PM Huong Farris NP 02/19/241930 Cosigned by Danish Menjivar MD at 02/20/2024 5:52 AM CONDUIT BENDER UIT BENDER UIT BENDER * Estella Hassan RN - 02/19/2024 7:17 PM CST Pt arrived pov, c/o pneumonia. Cough and pain. Currently on abx has three days left. Doing breathing treatments at home. UIT BENDER documented in this encounter Plan of Treatment Not on file documented as of this encounter Procedures Procedure Name Priority Date/Time Associated Diagnosis Comments PRO-BRAIN NATRIURETIC PEPTIDE STAT 02/20/2024 12:16 AM CONDUIT BENDER TROPONIN, QUANT STAT 02/20/2024 12:16 AM CONDUIT BENDER BASIC METABOLIC PANEL STAT 02/19/2024 8:08 PM CONDUIT BENDER CBC W/DIFF AUTOMATED STAT 02/19/2024 8:08 PM CONDUIT BENDER XR CHEST PA+LAT STAT 02/19/2024 7:39 PM CONDUIT BENDER documented in this encounter Results * TROPONIN, QUANT (02/20/2024 12:16 AM CONDUIT BENDER) Pathologist [facility] TROPONIN I HIGH SENSITIVITY 7 0 - 53 ng/L 02/20/2024 1:34 AM CONDUIT BENDER [facility] 02/20/2024 12:1 6 AM CONDUIT BENDER [facility] Final Resul t Performing Organization Address [facility] [place] de Phone Number [facility] [address] [place] [address], [place] [phone] [id number] * (ABNORMAL) PRO-BRAIN NATRIURETIC PEPTIDE (02/20/2024 12:16 AM CONDUIT BENDER) [facility] PRO-B TYPE NATRIURETIC PEPTIDE 952(H) <125 PG/ML 02/20/2024 12:48 AM CONDUIT BENDER [facility] Comment: AGE INDEPENDENT: <300 PG/ML HAS A 99% NEGATIVE PREDICTIVE VALUE FOR EXCLUDING ACUTE CHF <50 YEARS: >450 PG/ML IS CONSISTENT WITH ACUTE CHF 50-75 YEARS: >900 PG/ML IS CONSISTENT WITH ACUTE CHF >75 YEARS: >1800 PG/ML IS CONSISTENT WITH ACUTE CHF IN PATIENTS WITH RENAL INSUFFICIENCY (GFR <60), >1200 PG/ML YIELDS A DIAGNOSTIC SENSITIVITY AND SPECIFICITY OF 89% AND 72% FOR ACUTE CHF. 02/20/2024 12:1 6 AM CONDUIT BENDER [facility] Final Resul t Performing Organization Address [facility] Co de Phone Number [facility] [address] [place] [address], [place] [phone] * (ABNORMAL) BASIC METABOLIC PANEL (02/19/2024 8:08 PM CONDUIT BENDER) Pathologist [facility] SODIUM S/P/B 141 136 - 145 MMOL/L 02/19/2024 9:02 PM [facility] POTASSIUM S/P/B 4.6 3.5 - 5.1 MMOL/L 02/19/2024 9:02 PM [facility] CHLORIDE S/P/B 114 97 - 115 MMOL/L 02/19/2024 9:02 PM [facility] CO2 21.4 21.0 - 32.0 MMOL/L 02/19/2024 9:02 PM [facility] GLUCOSE 122(H) 74 - 106 MG/DL 02/19/2024 9:02 PM [facility] BUN 29(H) 7 - 18 MG/DL 02/19/2024 9:02 PM [facility] CREATININE S/P/B 1.64(H) 0.55 - 1.02 MG/DL 02/19/2024 9:02 PM [facility] CALCIUM S/P/B 9.1 8.5 - 10.1 MG/DL 02/19/2024 9:02 PM [facility] ANION GAP 5.6 2.0 - 10.0 MMOL/L 02/19/2024 9:02 PM [facility] OSMOLALITY (CALC) 299 MOSM/KG 024 9:02 PM [facility] Comment:REFERENCE RANGE NOT ESTABLISHED GFR ESTIMATE 40(L) >90 ML/MIN/1. 73 M2 02/19/2024 9:02 PM [facility] GFR NOTES GFR REFERENCE S: 02/19/2024 9:02 PM [facility] Comment: THE ESTIMATED GFR IS CALCULATED USING THE 2020 CKD-EPI EQUATION. THE FOLLOWING CATEGORIES FOR GRADING RENAL FUNCTION ARE RECOMMENDED BY THE INTERNATIONAL SOCIETY OF NEPHROLOGY (KDIGO 2012 CLINICAL PRACTICE GUIDELINE). G1,NORMAL OR HIGH: >89 ml/min/1.73 m2 G2,MILDLY DECREASED: 60-89 ml/min/1.73 m2 G3A,MILDLY TO MODERATELY DECREASED: 45-59 ml/min/1.73 m2 G3B,MODERATELY TO SEVERELY DECREASED: 30-44 ml/min/1.73 m2 G4,SEVERELY DECREASED: 15-29 ml/min/1.73 m2 G5,KIDNEY FAILURE: <15 ml/min/1.73 m2 02/19/2024 8:08 PM CONDUIT BENDER Huong Gleznton Brenton [facility] Final R esult [facility] [address] [place] [address], [phone] * (ABNORMAL) CBC W/DIFF AUTOMATED (02/19/2024 8:08 PM CONDUIT BENDER) WBC 8.66 4.00 - 10.80 x10'3/uL 02/19/2024 8:37 PM CONDUIT BENDER [facility] RBC 4.01(L) 4.10 - 5.40 x10'6/uL 02/19/2024 8:37 PM CONDUIT BENDER [facility] HGB 14.1 12.0 - 16.0 G/DL 02/19/2024 8:37 PM CONDUIT BENDER [facility] HCT 43.0 36.0 - 47.0 % 02/19/2024 8:37 PM [facility] MCV 107.2(H) 78.0 - 100.0 FL 02/19/2024 8:37 PM CONDUIT BENDER [facility] MCH 35.2(H) 27.0 - 31.0 PG 02/19/2024 8:37 PM CONDUIT BENDER [facility] MCHC 32.8(L) 33.0 - 36.0 G/DL 02/19/2024 8:37 PM CONDUIT BENDER [facility] RDW 13.7 11.5 - 14.5 % 02/19/2024 8:37 PM [facility] PLT 166 150 - 350 x10'3/uL 02/19/2024 8:37 PM [facility] MPV 10.5(H) 7.4 - 10.4 FL 02/19/2024 8:37 PM CONDUIT BENDER [facility] DIFFERENTIAL TYPE AUTOMATED DIFFERENTIAL 02/19/2024 8:37 PM CONDUIT BENDER [facility] SEG NEUTROPHILS 75.8 % 8:37 PM [facility] LYMPHOCYTES 16.5 % 02/19/2024 8:37 PM CONDUIT BENDER [facility] MONOCYTES 5.3 % 02/19/2024 8:37 PM CONDUIT BENDER [facility] EOSINOPHILS 1.5 % 02/19/2024 8:37 PM CONDUIT BENDER [facility] BASOPHILS 0.2 % 02/19/2024 8:37 PM CONDUIT BENDER [facility] IMMATURE GRANS % 0.7 % 02/19/20 8:37 PM [facility] ABS. NEUTROPHILS 6.56 1.60 - 8.30 x10'3/uL 02/19/2024 8:37 PM CONDUIT BENDER [facility] ABS. LYMPHOCYTES 1.43 0.80 - 4.70 x10'3/uL 02/19/2024 8:37 PM CONDUIT BENDER [facility] ABS. MONOCYTES 0.46 0.00 - 1.50 x10'3/uL 02/19/2024 8:37 PM CONDUIT BENDER [facility] ABS. EOSINOPHILS 0.13 0.00 - 0.40 x10'3/uL 02/19/2024 8:37 PM CONDUIT BENDER [facility] ABS. BASOPHILS 0.02 0.00 - 0.20 x10'3/uL 02/19/2024 8:37 PM [facility] ABS. IMMATURE GRANULOCYTES 0.06(H) 0.00 - 0.03 x10'3/uL 02/19/2024 8:37 PM [facility] ABS. NUCLEATED RBC'S 0.00 0.00 - 0.01 x10'3/uL 02/19/2024 8:37 PM CONDUIT BENDER [facility] NRBC % 0.0 % 02/19/2024 8:37 PM [facility] 02/19/2024 8:08 PM CONDUIT BENDER Huong Deann Farris [facility] Final R esult [facility] [address] [place] [address], [phone] * XR CHEST PA+LAT (02/19/2024 7:39 PM CONDUIT BENDER) Anatomical Region Laterality Modality Chest Radiographic Katy ging 02/19/2024 7:58 PM CONDUIT BENDER Impressions 02/19/2024 7:59 PM CONDUIT BENDER IMPRESSION: 1. ??CARDIOMEGALY WITHOUT EVIDENCE OF CHF. Signed: Mike Donnelly MD Referred By: ?? Interpreted By: Mike Donnelly MD, 02/19/2024 7:58 PM Narrative 02/19/2024 7:59 PM CONDUIT BENDER [address] [address] PATIENT NAME: MISHA BROWNE EXAM: Chest 2 view DATE OF EXAM: 02/19/2024 COMPARISON EXAM: 02/16/2024 INDICATION: Recent pneumonia, short of breath TECHNIQUE: PA and lateral FINDINGS: Mild cardiomegaly. ??Pulmonary vasculature does not appear significantly congested. ??No significant acute pulmonary parenchymal opacity. ??No pleural effusion. ??No hyperinflation. Procedure Note Mike Donnelly MD - 02/19/[address] [address] PATIENT NAME: MISHA BROWNE EXAM: Chest 2 view DATE OF EXAM: 02/19/2024 COMPARISON EXAM: 02/16/2024 INDICATION: Recent pneumonia, short of breath TECHNIQUE: PA and lateral FINDINGS: Mild cardiomegaly. Pulmonary vasculature does not appearsignificantly congested. No significant acute pulmonary parenchymalopacity. No pleural effusion. No hyperinflation. IMPRESSION: 1. CARDIOMEGALY WITHOUT EVIDENCE OF CHF. Signed: Mike Donnelly MD Referred By: Interpreted By: Mike Donnelly MD, 02/19/2024 7:58 PM Huong Farris NP GENERAL IMAGING Final R esult documented in this encounter Visit Diagnoses Diagnosis Acute CHF ([facility])- Primary Congestive heart failure, unspecified Acute congestive heart failure, unspecified heart failure type ([facility]) Dyspnea Other dyspnea and respiratory abnormality Suicidal ideations Suicidal ideation Viral infection Unspecified viral infection, in conditions classified elsewhere and of unspecified site documented in this encounter Admitting Diagnoses Diagnosis Acute CHF ([facility]) Congestive heart failure, unspecified Viral infection Unspecified viral infection, in conditions classified elsewhere and of unspecified site documented in this encounter Administered Medications Inactive Administered Medications - up to 3 most recent administrations Medication Order MAR Action Action Date Dose Rate Site acetaminophen (TYLENOL) tablet 650 mg 650 mg, Oral, Every 4 hours PRN, Mild pain (Scale 1 - 3), Starting on Mon02/20/24 at 0125, Until Mon02/20/24 at 1139, Maximum dose of acetaminophen is 4000 mg from all sources in 24 hours. Given 02/20/2024 6:49 AM CONDUIT BENDER 650 mg albuterol (PROVENTIL) (2.5 MG/3ML) 0.083% nebulizer solution 5 mg 5 mg, Nebulization, Once, 1 dose, On Mon02/20/24 at 0100 Given 02/20/2024 1:06 AM CONDUIT BENDER 5 mg budesonide (PULMICORT) nebulizer solution 0.5 mg 0.5 mg, Nebulization, 2 times daily, First dose on Mon02/20/24 at 0700, Until Discontinued, Shake Gently Given 02/20/2024 6:38 AM CONDUIT BENDER 0.5 mg dextromethorphan-guaiFENesin ER (MUCINEX DM) 30-600 MG 12 hr tablet 1 tablet 1 tablet, Oral, 2 times daily, First dose on Mon02/20/24 at 0230, Until Discontinued, Do not break, chew, or crush. Given 02/20/2024 4:02 AM CONDUIT BENDER 1 tablet diphenhydrAMINE (BENADRYL) injection 25 mg 25 mg, Intravenous, Every 6 hours PRN, Allergies, Itching, Starting on Mon02/20/24 at 0220, Until Mon02/20/24 at 1139, For IV administration, give no faster than 25 mg/min. furosemide (LASIX) injection 40 mg 40 mg, Intravenous, Once, 1 dose, On Mon02/20/24 at 0130, Administer IV push 20-40mg/min. Given 02/20/2024 1:58 AM CONDUIT BENDER 40 mg heparin (porcine) injection 5,000 Units 5,000 Units, Subcutaneous, Every 12 hours scheduled (2 times per day), First dose on Mon02/20/24 at 0900, Until Discontinued HYDROmorphone (DILAUDID) injection 1 mg 1 mg, Intravenous, Once, 1 dose, On Mon02/20/24 at 0415, Administer slowly over at least 2-3 minutes. Given 02/20/2024 4:03 AM CONDUIT BENDER 1 mg ipratropium-albuterol (DUONEB) 0.5-2.5 (3) MG/3ML nebulizer solution 3 mL 3 mL, Nebulization, Once, 1 dose, On Mon02/20/24 at 0100 Given 02/20/2024 1:05 AM CONDUIT BENDER 3 mLs ipratropium-albuterol (DUONEB) 0.5-2.5 (3) MG/3ML nebulizer solution 3 mL 3 mL, Nebulization, Every 4 hours PRN, Shortness of breath, Starting on Mon02/20/24 at 0126, Until Mon02/20/24 at 1139 ipratropium-albuterol (DUONEB) 0.5-2.5 (3) MG/3ML nebulizer solution 3 mL 3 mL, Nebulization, Every 4 hours, First dose (after last reorder) on Mon02/20/24 at 0500, Until Discontinued Given 02/20/2024 4:02 AM CONDUIT BENDER 3 mLs tpztzjgcg-pocrchzl-echwsayucge (MYLANTA MAXIMUM STRENGTH) 7557-8070-588 mg/30mL suspension 10 mL, Oral, Every 4 hours PRN, Indigestion, Heartburn, Starting on Mon02/20/24 at 0126, Until Mon02/20/24 at 1139, Shake Well morphine injection 1 mg 1 mg, Intravenous, Every 4 hours PRN, Moderate pain (Scale 4 - 7), Severe pain (Scale 8 - 10), Starting on Mon02/20/24 at 0340, Until Mon02/20/24 at 0901 Given 02/20/2024 5:13 AM CONDUIT BENDER 1 mg morphine injection 2 mg 2 mg, Intravenous, Once, 1 dose, On Mon02/20/24 at 0115 Given 02/20/2024 1:59 AM CONDUIT BENDER 2 mg ondansetron (ZOFRAN) injection 4 mg 4 mg, Intravenous, Every 8 hours PRN, Nausea, Vomiting, Starting on Mon02/20/24 at 0126, Until Mon02/20/24 at 1139, IV push over 2-5 minutes. senna-docusate (SENOKOT-S) 8.6-50 MG tablet 1 tablet 1 tablet, Oral, Nightly at bedtime, First dose on Mon02/20/24 at 2100, Until Discontinued documented in this encounter Active and Recently Administered Medications Times are shown in CONDUIT BENDER. Scheduled Medication Order 02/18/2024 02/19/2024 02/20/2024 albuterol (PROVENTIL) (2.5 MG/3ML) 0.083% nebulizer solution 5 mg (COMPLETED) 5 mg, Nebulization, Once, 1 dose, On Mon02/20/24 at 0100 0106 (Given - Provid er: Silvina Schulte, PRODUCT PICKER) azaTHIOprine (IMURAN) tablet 50 mg 50 mg, Oral, Daily, First dose on Mon02/20/24 at 0900, Until Discontinued, HAZARDOUS MEDICATION: wear single pair of chemotherapy approved gloves. Do not cut or open. If crushing, use approved closed-system crushing device for hazardous medications. Initiate hazardous drug (HD) precautions for 48 hours. Administration by approved chemotherapy RN only. 915 (Not Given - Pr ovider: Bijal Burns RN - Reason: Patient/family declined) budesonide (PULMICORT) nebulizer solution 0.5 mg 0.5 mg, Nebulization, 2 times daily, First dose on Mon02/20/24 at 0700, Until Discontinued, Shake Gently 0638 (Given - Provid er: Kimmy Hayes RN) dextromethorphan-guaiFENesin ER (MUCINEX DM) 30-600 MG 12 hr tablet 1 tablet 1 tablet, Oral, 2 times daily, First dose on Mon02/20/24 at 0230, Until Discontinued, Do not break, chew, or crush. 0402 (Given - Provid er: Kimmy Hayes RN)0916 (Not Given - Provider: Bijal Burns RN - Reason: Patient/family declined) furosemide (LASIX) injection 40 mg (COMPLETED) 40 mg, Intravenous, Once, 1 dose, On Mon02/20/24 at 0130, Administer IV push 20-40mg/min. 0158 (Given - Provid er: Dea Rhodes RN) gabapentin (NEURONTIN) capsule 600 mg 600 mg, Oral, 2 times daily, First dose on Mon02/20/24 at 0900, Until Discontinued 14 (Not Given - Pr ovider: Bijal Burns RN - Reason: Patient/family declined) heparin (porcine) injection 5,000 Units(Linked Group 1) 5,000 Units, Subcutaneous, Every 12 hours scheduled (2 times per day), First dose on Mon02/20/24 at 0900, Until Discontinued 15 (Not Given - Pr ovider: Bijal Burns RN - Reason: Patient/family declined) HYDROmorphone (DILAUDID) injection 1 mg (COMPLETED) 1 mg, Intravenous, Once, 1 dose, On Mon02/20/24 at 0415, Administer slowly over at least 2-3 minutes. 0403 (Given - Provid er: Kimmy Hayes RN) ipratropium-albuterol (DUONEB) 0.5-2.5 (3) MG/3ML nebulizer solution 3 mL (COMPLETED) 3 mL, Nebulization, Once, 1 dose, On Mon02/20/24 at 0100 0105 (Given - Provid er: Silvina Schulte, PRODUCT PICKER) ipratropium-albuterol (DUONEB) 0.5-2.5 (3) MG/3ML nebulizer solution 3 mL 3 mL, Nebulization, Every 4 hours, First dose (after last reorder) on Mon02/20/24 at 0500, Until Discontinued 040 (Given - Provid er: Kimmy Hayes RN)15 (Not Given - Provider: Bijal Burns RN - Reason: Patient/family declined) metoprolol succinate ER (TOPROL-XL) 24 hr tablet 100 mg 100 mg, Oral, Daily, First dose on Mon02/20/24 at 0900, Until Discontinued, May be split in half along the tablet score line; do not chew or crush. 0914 (Not Given - Pr ovider: Bijal Burns RN - Reason: Patient/family declined) morphine injection 2 mg (COMPLETED) 2 mg, Intravenous, Once, 1 dose, On Mon02/20/24 at 0115 0159 (Given - Provid er: Dea Rhodes RN) predniSONE (DELTASONE) tablet 5 mg 5 mg, Oral, Daily, First dose on Mon02/20/24 at 0900, Until Discontinued 914 (Not Given - Pr ovider: Bijal Burns RN - Reason: Patient/family declined) senna-docusate (SENOKOT-S) 8.6-50 MG tablet 1 tablet 1 tablet, Oral, Nightly at bedtime, First dose on Mon02/20/24 at 2100, Until Discontinued venlafaxine XR (EFFEXOR-XR) 24 hr capsule 37.5 mg 37.5 mg, Oral, Daily, First dose on Mon02/20/24 at 0900, Until Discontinued, Swallow capsule whole or it may be opened and the contents sprinkled on applesauce. 0916 (Not Given - Pr ovider: Bijal Burns RN - Reason: Patient/family declined) PRN Medication Order 02/18/2024 02/19/2024 02/20/2024 acetaminophen (TYLENOL) tablet 650 mg 650 mg, Oral, Every 4 hours PRN, Mild pain (Scale 1 - 3), Starting on Mon02/20/24 at 0125, Until Mon02/20/24 at 1139, Maximum dose of acetaminophen is 4000 mg from all sources in 24 hours. 0649 (Given - Provid er: Kimmy Hayes RN - Comment: pt request) diphenhydrAMINE (BENADRYL) injection 25 mg 25 mg, Intravenous, Every 6 hours PRN, Allergies, Itching, Starting on Mon02/20/24 at 0220, Until Mon02/20/24 at 1139, For IV administration, give no faster than 25 mg/min. ipratropium-albuterol (DUONEB) 0.5-2.5 (3) MG/3ML nebulizer solution 3 mL 3 mL, Nebulization, Every 4 hours PRN, Shortness of breath, Starting on Mon02/20/24 at 0126, Until Mon02/20/24 at 1139 oewoudlbs-urootqrn-ymwtmdyntlo (MYLANTA MAXIMUM STRENGTH) 5522-2171-866 mg/30mL suspension 10 mL, Oral, Every 4 hours PRN, Indigestion, Heartburn, Starting on Mon02/20/24 at 0126, Until Mon02/20/24 at 1139, Shake Well morphine injection 1 mg (CANCELED) 1 mg, Intravenous, Every 4 hours PRN, Moderate pain (Scale 4 - 7), Severe pain (Scale 8 - 10), Starting on Mon02/20/24 at 0340, Until Mon02/20/24 at 0901 0513 (Given - Provid er: Kimmy Hayes RN) ondansetron (ZOFRAN) injection 4 mg 4 mg, Intravenous, Every 8 hours PRN, Nausea, Vomiting, Starting on Mon02/20/24 at 0126, Until Mon02/20/24 at 1139, IV push over 2-5 minutes. Linked Groups Order Group 1: heparin (porcine) injection 5,000 UnitsJump to med 5,000 Units, Subcutaneous, Every 12 hours scheduled (2 times per day), First dose on Mon02/20/24 at 0900, Until Discontinued And Moderate Risk for VTE (COMPLETED) documented in this encounter Additional Health Concerns Infection Onset Date Last Indicated Resolved Time Rhinovirus 02/16/2024 02/16/2024 02/26/2024 12:3 2 AM CONDUIT BENDER documented as of this encounter Care Teams Speech And Drama Teacher Relationship Specialty Start Date End Date Sherry Ramirez III, MD [address] [facility] [address] [place] [address] PCP - General FAMILY PRACTICE 06/20/17 documented as of this encounter
--- OUTSIDE RECORDS SUMMARY | 2024-03-20 11:50 | XMS_ITS | Encounter Summary ---
Author Organization [facility] Address [address] [place] [address]. [place] [address] [place] [address] Care Team Providers Care Wharf Laborer Name Role Phone Ashley ZUNIGA MD, Hermes Perez Primary Care Provid er Encounter Details Date Type Department Care Team (Late st Contact Info) Description 02/22/2024 Hospital Follow-up Call [facility] Cardiovascular Care Unit [address] [place] [address] Zulma Ardon, RN Social History Tobacco Use Types Packs/Day Years [...] any time in the past 12 m [facility], were you homeless or living in a residential (including now)? No 02/20/2024 Comments No Sex and Gender Information Value Date Recorded Sex Assigned at Not on file Legal Sex Female 9:15 PM LEARNING FACILITATOR Gender Identity Not on file Sexual Orientation Not on file documented as of this encounter Functional Status * Are you deaf or do you [...] Assessment Author Status No 02/20/2024 4:08 AM LEARNING FACILITATOR Kimmy Hayes RN Active documented as of this encounter Mental Status * Because of a physical, mental, or emotional condition, do you have serious difficulty concentrating, remembering, or making decisions? Answer Entry Date Author Status No 02/20/2024 4:08 AM LEARNING FACILITATOR Kimmy Hayes RN Active documented in this encounter Plan of Treatment Not on file documented as of this encounter Visit Diagnoses Not on filedocumented in this encounter Additional Health Concerns Infection Onset Date Last Indicated Resolved Time Rhinovirus 02/16/2024 02/16/2024 02/26/2024 12:3 2 AM LEARNING FACILITATOR documented as of this encounter Care Teams Wharf Laborer Relationship Specialty Start Date End Date Hermes Ramirez III, MD [address] [facility] [address] [place] [address] PCP - General FAMILY PRACTICE 06/20/17 documented as of this encounter
--- OUTSIDE RECORDS SUMMARY | 2024-03-20 11:50 | XMS_ITS | Encounter Summary ---
Author Organization [facility] Address [address] [place] [address]. [place], [place] [address] [place] [address] Care Team Providers Care Flag Signaler Name Role Phone Ashley ZUNIGA MD, Hermes Perez Primary Care Provid er Encounter Details Date Type Department Care Team (Latest Contact Info) Description 02/16/2024 Travel Social History Tobacco Use Types Packs/Day Years Used Date Smoking Tobacco: Every Day Cigarettes 0.5 15 Smokeless Tobacco: Never Alcohol Use Standard Drinks/Week Comments No 0 (1 standard drink = 0.6 oz pur e alcohol) Comments No Sex and Gender Information Value Date Recorded Sex Assigned at Not on file Legal Sex Female 9:15 PM SPECIALIZED DEVELOPER Gender Identity Not on file Sexual Orientation Not on file documented as of this encounter Plan of Treatment Not on file documented as of this encounter Visit Diagnoses Not on filedocumented in this encounter Additional Health Concerns Infection Onset Date Last Indicated Resolved Time COVID-19 Rule Out 02/16/2024 02/16/2024 02/16/2024 9:16 PM SPECIALIZED DEVELOPER Rhinovirus 02/16/2024 02/16/2024 02/26/2024 12:3 2 AM SPECIALIZED DEVELOPER documented as of this encounter Care Teams Flag Signaler Relationship Specialty Start Date End Date Hermes Ramirez III, MD [address] [facility] [address] [place] [address] PCP - General FAMILY PRACTICE 06/20/17 documented as of this encounter
--- OUTSIDE RECORDS SUMMARY | 2024-03-20 11:50 | XMS_ITS | Encounter Summary ---
Author Organization [facility] Address [address] [place] [address]. [place], [place] [address] [place] [address] Care Team Providers Care Supervisor Melt House Name Role Phone Ashley ZUNIGA MD, Hermes Perez Primary Care Provid er Encounter Details Date Type Department Care Team (Latest Contact Info) Description 02/10/2024 Travel Social History Tobacco Use Types Packs/Day Years Used Date Smoking Tobacco: Every Day Cigarettes 0.5 15 Smokeless Tobacco: Never Alcohol Use Standard Drinks/Week Comments No 0 (1 standard drink = 0.6 oz pur e alcohol) Comments No Sex and Gender Information Value Date Recorded Sex Assigned at Not on file Legal Sex Female 9:15 PM TELEPHONIC NURSE CASE MANAGER Gender Identity Not on file Sexual Orientation Not on file documented as of this encounter Plan of Treatment Not on file documented as of this encounter Visit Diagnoses Not on filedocumented in this encounter Care Teams Supervisor Melt House Relationship Specialty Start Date End Date Hermes Ramirez III, MD [address] [facility] [address] [place] [address] PCP - General FAMILY PRACTICE 06/20/17 documented as of this encounter
--- OUTSIDE RECORDS SUMMARY | 2024-03-20 11:50 | XMS_ITS | Encounter Summary ---
Author Organization [facility] Address [address] [place] [address]. [place], [place] [id number] [place] [id number] Care Team Providers Care Pharmacy Resident Name Role Phone Ashley ZUNIGA MD, Hermes Perez Primary Care Provid er Reason for Referral * Imaging (Urgent) - New Request Specialty Diagnoses / Procedures Referred By Esvin gaspar Referred To Contact RADIOLOGY Procedures CT CHEST WO CON Randy Diamond MD [address], [facility] [address] [place] [address] Phone: tel: fax: Referral ID Status Reason Start Date Expiration Date V isits Requested Visits Authorized [id number] New Request 02/14/2024 02/13/2025 1 1 T MANAGER Reason for Visit * Reason Comments Shortness Of Breath Encounter Details Date Type Department Care Team (Late st Contact Info) Description 02/14/2024 2:16 PM PILOT MANAGER - 02/14/2024 5:13 PM PILOT MANAGER Emergency [facility] Emergency [address] [place] [address] Trae Denton MD [address] [place] [address] [id number] Shortness Of Breath Discharge Disposition: Home or Self Care (Routine Discharge) Social History Tobacco Use Types Packs/Day Years Used Date Smoking Tobacco: Every Day Cigarettes 0.5 15 Smokeless Tobacco: Never Alcohol Use Standard Drinks/Week Comments No 0 (1 standard drink = 0.6 oz pur e alcohol) Comments No Sex and Gender Information Value Date Recorded Sex Assigned at Not on file Legal Sex Female 9:15 PM PILOT MANAGER Gender Identity Not on file Sexual Orientation Not on file documented as of this encounter Last Filed Vital Signs Vital Sign Reading Time Taken Comments Blood Pressure 148/96 02/14/2024 5:03 PM PILOT MANAGER Pulse 81 02/14/2024 5:03 PM PILOT MANAGER Temperature 36.7 ??C (98.1 ??F) 02/14/2024 2:13 PM CS T Respiratory Rate 22 02/14/2024 5:03 PM PILOT MANAGER Oxygen Saturation 95% 02/14/2024 5:03 PM PILOT MANAGER Inhaled Oxygen Concentration - - Weight 92.6 kg (204 lb 2.3 oz) 02/14/2024 2:13 P M PILOT MANAGER Height 157.5 cm (5' 2 ) 02/14/2024 2:13 PM PILOT MANAGER Body Mass Index 37.34 02/14/2024 2:13 PM PILOT MANAGER documented in this encounter Discharge Instructions * Discharge Instructions* Randy Diamond MD - 02/14/2024 4:42 PM PILOT MANAGER -Please call your primary care physician's office to schedule an appointment for re-evaluation -Your lab work and imaging was reassuring for improving pneumonia. You may have undiagnosed lung disease such as COPD. You could benefit from following up with a quartz mounter. This can be set up by your primary care doctor. You were prescribed nebulizer solution with a steroid and albuterol. You can use this every 6 hours as needed for wheezing/shortness of breath. -Continue taking antibiotics as previously prescribed -You know yourself better than anyone else. If you become concerned about your progress or believe your condition is worsening please return to the emergency department or contact your primary care provider's nurses line for further recommendations. -You had imaging performed as part of your visit to the Emergency Department today. Sometimes thereare other findings on these images that we may not have discussed specifically. These findings may be important for your fci health, but were unlikely to be a cause for your symptoms today. Youshould discuss with your primary care provider regarding your imaging, and whether there were otherfindings that should be investigated further. -If medications were prescribed at this visit please take them as prescribed, continue taking home medications as previously prescribed unless instructed otherwise. -We want to provide the highest level of care and hope you are happy with the service you receive. -You will be mailed a patient satisfaction survey and hope that you will return it indicating that everything was very good: all 5's. T MANAGER * Attachments The following attachments cannot be sent through Care Everywhere. * Pneumonia, Adult ED (Jordanian) * Ipratropium and Albuterol, ADULT (Jordanian) documented in this encounter Medications at Time of Discharge albuterol sulfate HFA 108 (90 Base) MCG/ACT inhaler Inhale 2 puffs into the lungs every 4 (four) hours as needed for Wheezing or Shortness of breath. 6.7 g 02/12/2024 amLODIPine (NORVASC) 5 MG tablet Take 1 tablet (5 mg total) by mouth daily. ENVARSUS XR 1 MG TABLET SR 24 [...] by mouth 2 (two) times daily. 10/27/2021 amoxicillin (AMOXIL) 875 MG tablet Take 1 tablet (875 mg total) by mouth 2 (two) times daily for 10 days. 20 tablet 02/12/2024 doxycycline hyclate (VIBRAMYCIN) 100 MG capsule Take 1 capsule (100 mg total) by mouth 2 (two) times daily for 10 days. 20 capsule 02/12/2024 aspirin 81 MG chewable tablet Chew 1 tablet (81 mg total) by mouth daily. baclofen (LIORESAL) 10 MG tablet Take 1 tablet (10 mg total) by mouth 3 (three) times daily. 15 tablet 07/22/2023 cycloSPORINE modified (NEORAL) 100 MG capsule Take 175 mg by mouth 2 (two) times daily. 4 enoxaparin (LOVENOX) 100 mg/mL syringe Inject 1 mL (100 mg total) into the skin daily. 10 mL 02/10/2024 4 ipratropium-albu terol (DUONEB) 0.5-2.5 (3) MG/3ML Solution Take 3 mLs by nebulization every 6 (six) hours as needed. 360 mL 02/14/2024 4 venlafaxine (EFFEXOR) 37.5 MG tablet Take 1 tablet (37.5 mg total) by mouth. 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 Patient states she has had persistent shortness of breath, cough, and rib pain for the past week. Says that she was recently diagnosed with pneumonia and started on antibiotics in the emergency department. She is concerned because symptoms have not gotten better. She has had3 days worth of antibiotics. Notes that symptoms have not been worsening. Also says she has not been sleeping well and has had a persistent migraine. Reports that migraine today similar to past migraines. Denies any fevers, chills, chest pain, abdominal pain, nausea, vomiting, or diarrhea. Medical History ALLERGIES: Review of patient's allergies [...] Start Date End Date Taking? Authorizing Provider ipratropium-albuterol (DUONEB) 0.5-2.5 (3) MG/3ML Solution Take 3 mLs by nebulization every 6 (six)hours as needed. 02/14/24 03/15/24 Yes Randy Diamond MD albuterol sulfate HFA 108 (90 Base) MCG/ACT [...] total) by mouth 3 (three) times daily. 07/22/23 Chuckie Arana MD cycloSPORINE modified (NEORAL) 100 MG [...] the skin daily. 02/10/24 Danish Menjivar MD gabapentin (NEURONTIN) 300 MG capsule Take 1 capsule (300 mg total) by mouth 2 (two) times daily. Default History Genericprovider LORazepam (ATIVAN) 0.5 MG tablet Take 1 tablet (0.5 mg total) by mouth. 10/26/21 Default History Genericprovider metoprolol succinate ER 50 MG 24 hr tablet Take 1 tablet (50 mg total) by mouth. 12/30/19 Doc [facility] predniSONE (DELTASONE) 2.5 mg tablet Take 1 [...] Topics Alcohol use: No Drug use: No Review of Systems Review of Systems Constitutional: Negative for chills and fever. HENT: Negative for congestion. Eyes: Negative for visual disturbance. Respiratory: Positive for cough and shortness of breath. Cardiovascular: Negative for chest pain. Gastrointestinal: Negative for abdominal pain, diarrhea, nausea and vomiting. Genitourinary: Negative for dysuria and hematuria. Musculoskeletal: Negative for neck pain and neck stiffness. Skin: Negative for rash. Neurological: Negative for syncope and light-headedness. Physical Exam Filed Vitals: 02/14/24 1413 02/14/24 1650 02/14/24 1703 BP: (!) 147/87 (!) 152/99 (!) 148/96 Pulse: 93 90 81 Resp: Temp: 98.1 ??F (36.7 ??C) TempSrc: Oral SpO2: 94% 95% 95% Weight: 92.6 kg (204 lb 2.3 oz) Height: 1.575 m (5' 2 ) Physical Exam Vitals and nursing note reviewed. Constitutional: General: She is not in acute distress. Appearance: Normal appearance. She is not toxic-appearing. HENT: Head: Normocephalic and atraumatic. Mouth/Throat: Mouth: Mucous membranes are moist. Eyes: Extraocular Movements: Extraocular movements intact. Conjunctiva/sclera: Conjunctivae normal. Cardiovascular: Rate and Rhythm: Normal rate and regular rhythm. Pulses: Normal pulses. Heart sounds: Normal heart sounds. Pulmonary: Effort: Pulmonary effort is normal. No respiratory distress. Comments: Expiratory wheezing heard throughout all lung le Abdominal: General: Abdomen is flat. There is no distension. Palpations: Abdomen is soft. Tenderness: There is no abdominal tenderness. Musculoskeletal: General: Normal range of motion. Cervical back: Normal range of motion and neck supple. Skin: General: Skin is warm and dry. Capillary Refill: Capillary refill takes less than 2 seconds. Neurological: General: No focal deficit present. Mental Status: She is alert. Psychiatric: Mood and Affect: Mood normal. Diagnostic Studies / Procedures ELECTROCARDIOGRAMS: No results found for this visit on 02/14/24. LABORATORY STUDIES: Results for orders placed or performed during the hospital encounter of 02/14/24 CBC W/DIFF AUTOMATED Result Value Ref Range WBC 5.86 4.00 - 10.80 x10'3/uL RBC 3.47 (L) 4.10 - 5.40 x10'6/uL HGB 12.2 12.0 - 16.0 G/DL HCT 36.0 36.0 - 47.0 % MCV 103.7 (H) 78.0 - 100.0 FL MCH 35.2 (H) 27.0 - 31.0 PG MCHC 33.9 33.0 - 36.0 G/DL RDW 13.4 11.5 - 14.5 % PLT 119 (L) 150 - 350 x10'3/uL MPV 10.9 (H) 7.4 - 10.4 FL DIFFERENTIAL TYPE AUTOMATED DIFFERENTIAL SEG NEUTROPHILS 74.2 % LYMPHOCYTES 15.7 % MONOCYTES 6.3 % EOSINOPHILS 1.9 % BASOPHILS 0.2 % IMMATURE GRANS % 1.7 % ABS. NEUTROPHILS 4.35 1.60 - 8.30 x10'3/uL ABS. LYMPHOCYTES 0.92 0.80 - 4.70 x10'3/uL ABS. MONOCYTES 0.37 0.00 - 1.50 x10'3/uL ABS. EOSINOPHILS 0.11 0.00 - 0.40 x10'3/uL ABS. BASOPHILS 0.01 0.00 - 0.20 x10'3/uL ABS. IMMATURE GRANULOCYTES 0.10 (H) 0.00 - 0.03 x10'3/uL ABS. NUCLEATED RBC'S 0.00 0.00 - 0.01 x10'3/uL NRBC % 0.0 % BASIC METABOLIC PANEL Result Value Ref Range SODIUM S/P/B 140 136 - 145 MMOL/L POTASSIUM S/P/B 4.7 3.5 - 5.1 MMOL/L CHLORIDE S/P/B 112 97 - 115 MMOL/L CO2 22.5 21.0 - 32.0 MMOL/L GLUCOSE 153 (H) 74 - 106 MG/DL BUN 20 (H) 7 - 18 MG/DL CREATININE S/P/B 1.69 (H) 0.55 - 1.02 MG/DL CALCIUM S/P/B 9.2 8.5 - 10.1 MG/DL ANION GAP 5.5 2.0 - 10.0 MMOL/L OSMOLALITY (CALC) 296 MOSM/KG GFR ESTIMATE 39 (L) >90 ML/MIN/1.73 M2 GFR NOTES GFR REFERENCES: TROPONIN, QUANT Result Value Ref Range TROPONIN I HIGH SENSITIVITY 7 0 - 53 ng/L PRO-BRAIN NATRIURETIC PEPTIDE Result Value Ref Range PRO-B TYPE NATRIURETIC PEPTIDE 1,147 (H) <125 PG/ML HCG QUANT SERUM - CHORIONIC GONADOTROPIN () Result Value Ref Range HCG QUANTITATIVE <1 MIU/ML IMAGING STUDIES CT CHEST WO CON Final Result by User, [id number] (02/13 1705) [facility] [address] [place], [place] [address] Examination: CT CHEST WO CON Clinical Information: DYSPNEA, ON IMMUNOSUPPRESSION, RECENT DX PNA Comparison:CT 02/12/2024. Technique: IV contrast: None. Oral contrast: None. Technical comments: Standard technique. Dose reduction: This CT exam was performed using one or more of the following dose reduction techniques: Automated exposure control, adjustment of the mA and/or kV according to patient size, and/or use of iterative reconstruction technique. Findings: MEDIASTINUM Support tubes and lines: None. Base of neck/thyroid: Negative. Heart: Normal in size. No pericardial effusion. Lymph nodes: Mildly prominent mediastinal lymph nodes may be reactive. VASCULATURE The unenhanced thoracic aorta and pulmonary arteries appear normal in caliber. LUNGS AND PLEURA Lungs: Redemonstrated hazy multifocal pulmonary opacities, which appear mildly improved since the recent prior study from 2 days ago. Calcified granuloma in the right lower lobe again noted. Pleura: No pleural effusion, thickening, or calcification. UPPER ABDOMEN The visualized [place] kidneys appear atrophic. Prominent vascular structures in the left upper quadrant, potentially varices. BONES/SOFT TISSUES No significant lesion. Impression: 1. Improved pulmonary opacities since the prior chest CT from 2 days ago suggesting improving inflammatory or infectious process. 2. Mildly prominent mediastinal lymph nodes are favored reactive. 3. Included kidneys again appear atrophic. 4. Partially visualized prominent vascular structures in the left upper quadrant may represent abdominal varices. Ordered By: RANDY DIAMOND Interpreted By: Gabriel Alberto MD, 02/14/2024 4:57 PM XR CHEST PA+LAT Final Result by User, [id number] (02/13 1761) [address] [address] EXAMINATION: Chest x-ray 2 views. 02/14/2024 2:55 PM TECHNIQUE: PA and lateral upright images of the chest were obtained. HISTORY: Dyspnea, cough, recent history of pneumonia. COMPARISON:Chest x-ray 02/10/2024 FINDINGS: The cardiomediastinal silhouette is enlarged but stable in size. The pulmonary vasculature is congested. Mild diffuse reticular opacities and hazy groundglass opacity in. There is no superimposed focal pulmonary consolidation, effusion, or pneumothorax. Thoracic spondylosis. IMPRESSION: 1. Cardiomegaly and pulmonary vascular congestion. 2. Mild reticular opacities and hazy groundglass opacities may be secondary to edema or pneumonia. Ordered By: RANDY DIAMOND Interpreted By: Marlys Jovel MD, 02/14/2024 3:04 PM ED Course / Medical Decision Making Medical Decision Making All critical differentials and diagnoses were considered for the patient's presentation. 43-year-old woman presenting with shortness of breath. Vitals are stable. Afebrile and not tachycardic. Oxygen saturation is 95% on room air. No external signs of respiratory distress. She has expiratory wheezing throughout all lung le, no focalities. Patient was recently diagnosed with pneumonia in the emergency department 3 days ago. She was started on doxycycline and amoxicillin. She also had complete cardiac workup and VQ scan done which showed low probability of PE. Symptoms today are likely from persistent pneumonia versus URI. However, plan to trend troponin and BNP secondary to limited diagnostic ability of VQ scan. Low suspicion for PE as vitals are stable, but will rule out emergent diagnoses. Differentials include but are not limited to pneumonia, URI, PE, CHF, ACS. Patientis also having acute on chronic migraine. Plan for Benadryl and Compazine in the emergency department. Also will give DuoNeb for wheezing. Amount and/or Complexity of Data Reviewed Labs: ordered. Decision-making details documented in ED Course. Radiology: ordered. ED Course as of 02/14/24 1716 MonFeb 14, 2024 1437 Teaching Physician - I, Trae Denton MD, performed a History and Physical examination of the patient and discussed the management with the resident. I reviewed the Resident's note and agree withthe findings and plan of care, except as I have documented. Teaching physician supervised resident In person. [DF] 1508 WBC: 5.86 [DF] 1525 Patient states she is still not feeling improved after Compazine and Benadryl. Notes that she has gotten relief from morphine on past emergency room visits. Relayed to her that opioids are usually not indicated for migraines. However, she relates she is also having severe rib pain secondary tocoughing. Will try 1 dose of morphine. [LYON] 1540 XR CHEST PA+LAT IMPRESSION: 1. Cardiomegaly and pulmonary vascular congestion. 2. Mild reticular opacities and hazy groundglass opacities may be secondary to edema or pneumonia. [LYON] 1541 CREATININE S/P/B(!): 1.69 Baseline appears to be around 2 [LYON] 1541 Chest x-ray personally reviewed and seems slightly worse than prior. Patient is high risk on multiple immunosuppressants. Discussed plan for repeat CT scan for further evaluation. Status post DuoNeb patient still has audible wheezing. She relays that DuoNeb gave her mild relief. Plan for another breathing treatment. Additional lab work including downtrending BNP and negative troponin are reassuring. However, white count is unreliable as patient is immunosuppressed. [LYON] 1545 PRO-B TYPE NATRIURETIC PEPTIDE(!): 1,147 Downtrending from 2,500 (2 days ago) [LYON] 1546 TROPONIN I HIGH SENSITIVITY: 7 [LYON] 1600 HCG QUANTITATIVE: <1 [DF] 1624 CT CHEST WO CON Personal interpretation of CT shows improvement of pna [DF] 1708 CT CHEST WO CON Impression: 1. Improved pulmonary opacities since the prior chest CT from 2 days ago suggesting improving inflammatory or infectious process. 2. Mildly prominent mediastinal lymph nodes are favored reactive. 3. Included kidneys again appear atrophic. 4. Partially visualized prominent vascular structures in the left upper quadrant may represent abdominal varices. [LYON] 1709 Discussed all results of ED visit with patient including improving lab work and imaging. Patient is requesting additional dose of pain medications since she is still having a headache. Relayed to her that opioids are not indicated for migraines. Morphine was given for rib pain. Offered droperidol, but patient declines. She was obviously upset when explained that we would not be ordering any additional dose of pain medications. She is requesting to leave. Discussed red flags for return to the emergency department. Also discussed prescription for DuoNebs. She has nebulizer machine at home. [LYON] ED Course User Index [DF] Trae Denton MD [LYON] Randy Diamond MD Clinical Impression Dyspnea (Primary) Pneumonia Wheezing Tobacco use Immunosuppression ([facility]) Disposition: Discharge Cosigned by Trae Denton MD at 02/15/2024 7:40 AM PILOT MANAGER T MANAGER T MANAGER * Liana Saenz RN - 02/14/2024 2:10 PM CST PATIENT ARRIVES POV WITH C/O SOB. SHE STATES SHE WAS HERE ON 02/11 AND DX WITH PNEUMONIA. PATIENT ALSO REPORT MIGRAINE. T MANAGER documented in this encounter Plan of Treatment Not on file documented as of this encounter Procedures Procedure Name Priority Date/Time Associated Diagnosis Comments CT CHEST WO CON STAT 02/14/2024 4:52 PM PILOT MANAGER XR CHEST PA+LAT STAT 02/14/2024 3:00 PM PILOT MANAGER PRO-BRAIN NATRIURETIC PEPTIDE STAT 02/14/2024 2:43 PM PILOT MANAGER BASIC METABOLIC PANEL STAT 02/14/2024 2:43 PM PILOT MANAGER HCG QUANT (SERUM)-CHORIONIC GONADOTROPIN STAT 02/14/2024 2:43 PM PILOT MANAGER CBC W/DIFF AUTOMATED STAT 02/14/2024 2:43 PM PILOT MANAGER TROPONIN, QUANT STAT 02/14/2024 2:43 PM PILOT MANAGER documented in this encounter Results * CT CHEST WO CON (02/14/2024 4:52 PM PILOT MANAGER) Anatomical Region Laterality Modality Chest Computed Tomogra phy 02/14/2024 4:57 PM PILOT MANAGER Impressions 02/14/2024 5:04 PM PILOT MANAGER Impression: 1. Improved pulmonary opacities since the prior chest CT from 2 days ago suggesting improving inflammatory or infectious process. 2. Mildly prominent mediastinal lymph nodes are favored reactive. 3. Included kidneys again appear atrophic. 4. Partially visualized prominent vascular structures in the left upper quadrant may represent abdominal varices. Ordered By: RANDY DIAMOND Interpreted By: Gabriel Alberto MD, 02/14/2024 4:57 PM Narrative 02/14/2024 5:04 PM PILOT MANAGER [address] [address] Examination: CT CHEST WO CON Clinical Information: DYSPNEA, ON IMMUNOSUPPRESSION, RECENT DX PNA Comparison:CT 02/12/2024. Technique: IV contrast: None. Oral contrast: None. Technical comments: Standard technique. Dose reduction: This CT exam was performed using one or more of the following dose reduction techniques: Automated exposure control, adjustment of the mA and/or kV according to patient size, and/or use of iterative reconstruction technique. Findings: MEDIASTINUM Support tubes and lines: None. Base of neck/thyroid: Negative. Heart: Normal in size. No pericardial effusion. Lymph nodes: Mildly prominent mediastinal lymph nodes may be reactive. VASCULATURE The unenhanced thoracic aorta and pulmonary arteries appear normal in caliber. LUNGS AND PLEURA Lungs: Redemonstrated hazy multifocal pulmonary opacities, which appear mildly improved since the recent prior study from 2 days ago. Calcified granuloma in the right lower lobe again noted. Pleura: No pleural effusion, thickening, or calcification. UPPER ABDOMEN The visualized [place] kidneys appear atrophic. Prominent vascular structures in the left upper quadrant, potentially varices. BONES/SOFT TISSUES No significant lesion. Procedure Note Gabriel Alberto MD - 02/14/2024 [place] [id number] Examination: CT CHEST WO CON Clinical Information: DYSPNEA, ON IMMUNOSUPPRESSION, RECENT DX PNA Comparison:CT 02/12/2024. Technique: IV contrast: None. Oral contrast: None. Technical comments: Standard technique. Dose reduction: This CT exam was performed using one or more of thefollowing dose reduction techniques: Automated exposure control,adjustment of the mA and/or kV according to patient size, and/or use ofiterative reconstruction technique. Findings: MEDIASTINUM Support tubes and lines: None. Base of neck/thyroid: Negative. Heart: Normal in size. No pericardial effusion. Lymph nodes: Mildly prominent mediastinal lymph nodes may be reactive. VASCULATURE The unenhanced thoracic aorta and pulmonary arteries appear normal incaliber. LUNGS AND PLEURA Lungs: Redemonstrated hazy multifocal pulmonary opacities, which appearmildly improved since the recent prior study from 2 days ago. Calcifiedgranuloma in the right lower lobe again noted. Pleura: No pleural effusion, thickening, or calcification. UPPER ABDOMEN The visualized [place] kidneys appear atrophic. Prominent vascularstructures in the left upper quadrant, potentially varices. BONES/SOFT TISSUES No significant lesion. Impression: 1. Improved pulmonary opacities since the prior chest CT from 2 days agosuggesting improving inflammatory or infectious process. 2. Mildly prominent mediastinal lymph nodes are favored reactive. 3. Included kidneys again appear atrophic. 4. Partially visualized prominent vascular structures in the left upperquadrant may represent abdominal varices. Ordered By: RANDY DIAMOND Interpreted By: Gabriel Alberto MD, 02/14/2024 4:57 PM us Randy Diamond MD CT Final Result * XR CHEST PA+LAT (02/14/2024 3:00 PM PILOT MANAGER) Anatomical Region Laterality Modality Chest Radiographic Katy ging 02/14/2024 3:04 PM PILOT MANAGER Impressions 02/14/2024 3:07 PM PILOT MANAGER IMPRESSION: 1. Cardiomegaly and pulmonary vascular congestion. 2. Mild reticular opacities and hazy groundglass opacities may be secondary to edema or pneumonia. Ordered By: RANDY DIAMOND Interpreted By: Marlys Jovel MD, 02/14/2024 3:04 PM Narrative 02/14/2024 3:07 PM PILOT MANAGER [address] [address] EXAMINATION: Chest x-ray 2 views. 02/14/2024 2:55 PM TECHNIQUE: PA and lateral upright images of the chest were obtained. HISTORY: Dyspnea, cough, recent history of pneumonia. COMPARISON:Chest x-ray 02/10/2024 FINDINGS: The cardiomediastinal silhouette is enlarged but stable in size. The pulmonary vasculature is congested. Mild diffuse reticular opacities and hazy groundglass opacity in. There is no superimposed focal pulmonary consolidation, effusion, or pneumothorax. Thoracic spondylosis. Procedure Note Marlys Jovel MD - 02/14/[address] [address] EXAMINATION: Chest x-ray 2 views. 02/14/2024 2:55 PM TECHNIQUE: PA and lateral upright images of the chest were obtained. HISTORY: Dyspnea, cough, recent history of pneumonia. COMPARISON:Chest x-ray 02/10/2024 FINDINGS: The cardiomediastinal silhouette is enlarged but stable in size. Thepulmonary vasculature is congested. Mild diffuse reticular opacities andhazy groundglass opacity in. There is no superimposed focal pulmonaryconsolidation, effusion, or pneumothorax. Thoracic spondylosis. IMPRESSION: 1. Cardiomegaly and pulmonary vascular congestion. 2. Mild reticular opacities and hazy groundglass opacities may besecondary to edema or pneumonia. Ordered By: RANDY DIAMOND Interpreted By: Marlys Jovel MD, 02/14/2024 3:04 PM Randy Diamond MD GENERAL IMAGING Final Result * HCG QUANT SERUM - CHORIONIC GONADOTROPIN () (02/14/2024 2:43 PM PILOT MANAGER) [facility] HCG QUANTITATIVE <1 MIU/ML 02/14/20 3:[address] [facility] Comment: <5 IS NEGATIVE 5-25 IS BORDERLINE >25 IS POSITIVE ASSAY PERFORMED BY CHEMILUMINESCENCE METHODOLOGY USING SIEMENS DIMENSION VISTA REAGENT. PATIENT RESULTS DETERMINED BY ASSAYS USING DIFFERENT MANUFACTURERS FOR METHODS MAY NOT BE COMPARABLE. 02/14/2024 2:43 PM PILOT MANAGER Randy Diamond MD LABORATORY Final Result [facility] [address] [place] [address], [id number] * (ABNORMAL) PRO-BRAIN NATRIURETIC PEPTIDE (02/14/2024 2:43 PM PILOT MANAGER) [facility] PRO-B TYPE NATRIURETIC PEPTIDE 1,147(H) <125 PG/ML 02/14/2024 3:[address] [facility] Comment: AGE INDEPENDENT: <300 PG/ML HAS [...] OF 89% AND 72% FOR ACUTE CHF. 02/14/2024 2:43 PM PILOT MANAGER us Trae Denton MD LABORATORY Final Result Performing Organization Address [facility] Co de Phone Number [facility] [address] [place] [address], [id number] * TROPONIN, QUANT (02/14/2024 2:43 PM PILOT MANAGER) [facility] TROPONIN I HIGH SENSITIVITY 7 0 - 53 ng/L 02/14/2024 3:[address] [facility] 02/14/2024 2:43 PM PILOT MANAGER us Trae Denton MD LABORATORY Final Result Performing Organization Address [facility] Co de Phone Number [facility] [address] [place] [address], [place] [phone] * (ABNORMAL) BASIC METABOLIC PANEL (02/14/2024 2:43 PM PILOT MANAGER) Pathologist [facility] [place] SODIUM S/P/B 140 136 - 145 MMOL/L 02/14/2024 3:[address] [facility] POTASSIUM S/P/B 4.7 3.5 - 5.1 MMOL/L 02/14/2024 3:[address] [facility] CHLORIDE S/P/B 112 97 - 115 MMOL/L 02/14/2024 3:[address] [facility] CO2 22.5 21.0 - 32.0 MMOL/L 02/14/2024 3:[address] [facility] GLUCOSE 153(H) 74 - 106 MG/DL 02/14/2024 3:[address] [facility] BUN 20(H) 7 - 18 MG/DL 02/14/2024 3:[address] [facility] CREATININE S/P/B 1.69(H) 0.55 - 1.02 MG/DL 02/14/2024 3:[address] [facility] CALCIUM S/P/B 9.2 8.5 - 10.1 MG/DL 02/14/2024 3:[address] [facility] ANION GAP 5.5 2.0 - 10.0 MMOL/L 02/14/2024 3:[address] [facility] OSMOLALITY (CALC) 296 MOSM/KG 024 3:[address] [facility] Comment:REFERENCE RANGE NOT ESTABLISHED GFR ESTIMATE 39(L) >90 ML/MIN/1. 73 M2 02/14/2024 3:[address] [facility] GFR NOTES GFR REFERENCE S: 02/14/2024 3:[address] [facility] Comment: THE ESTIMATED GFR IS CALCULATED [...] ml/min/1.73 m2 G5,KIDNEY FAILURE: <15 ml/min/1.73 m2 02/14/2024 2:43 PM PILOT MANAGER us Randy Diamond MD LABORATORY Final Result [facility] [address] [place] [address], [id number] * (ABNORMAL) CBC W/DIFF AUTOMATED (02/14/2024 2:43 PM PILOT MANAGER) [facility] WBC 5.86 4.00 - 10.80 x10'3/uL 02/14/2024 2:[address] [facility] RBC 3.47(L) 4.10 - 5.40 x10'6/uL 02/14/2024 2:[address] [facility] HGB 12.2 12.0 - 16.0 G/DL 02/14/2024 2:[address] [facility] HCT 36.0 36.0 - 47.0 % 02/14/2024 2:[address] [facility] MCV 103.7(H) 78.0 - 100.0 FL 02/14/2024 2:[address] [facility] MCH 35.2(H) 27.0 - 31.0 PG 02/14/2024 2:[address] [facility] MCHC 33.9 33.0 - 36.0 G/DL 02/14/2024 2:[address] [facility] RDW 13.4 11.5 - 14.5 % 02/14/2024 2:[address] [facility] PLT 119(L) 150 - 350 x10'3/uL 02/14/2024 2:[address] [facility] MPV 10.9(H) 7.4 - 10.4 FL 02/14/2024 2:[address] [facility] DIFFERENTIAL TYPE AUTOMATED DIFFERENTIAL 02/14/2024 2:[address] [facility] SEG NEUTROPHILS 74.2 % 2:[address] [facility] LYMPHOCYTES 15.7 % 02/14/2024 2:[address] [facility] MONOCYTES 6.3 % 02/14/2024 2:[address] [facility] EOSINOPHILS 1.9 % 02/14/2024 2:[address] [facility] BASOPHILS 0.2 % 02/14/2024 2:[address] [facility] IMMATURE GRANS % 1.7 % 02/14/20 2:[address] [facility] ABS. NEUTROPHILS 4.35 1.60 - 8.30 x10'3/uL 02/14/2024 2:[address] [facility] ABS. LYMPHOCYTES 0.92 0.80 - 4.70 x10'3/uL 02/14/2024 2:[address] [facility] ABS. MONOCYTES 0.37 0.00 - 1.50 x10'3/uL 02/14/2024 2:[address] [facility] ABS. EOSINOPHILS 0.11 0.00 - 0.40 x10'3/uL 02/14/2024 2:[address] [facility] ABS. BASOPHILS 0.01 0.00 - 0.20 x10'3/uL 02/14/2024 2:[address] [facility] ABS. IMMATURE GRANULOCYTES 0.10(H) 0.00 - 0.03 x10'3/uL 02/14/2024 2:[address] [facility] ABS. NUCLEATED RBC'S 0.00 0.00 - 0.01 x10'3/uL 02/14/2024 2:[address] [facility] NRBC % 0.0 % 02/14/2024 2:[address] [facility] 02/14/2024 2:43 PM PILOT MANAGER Randy Diamond MD LABORATORY Final Result [facility] [address] [place] [address], [id number] documented in this encounter Visit Diagnoses Diagnosis Dyspnea- Primary Other dyspnea and respiratory abnormality Pneumonia Pneumonia, organism unspecified Wheezing Tobacco use Tobacco use disorder Immunosuppression ([facility]) Unspecified disorder of immune mechanism documented in this encounter Administered Medications Inactive Administered Medications - up to 3 most recent administrations Medication Order MAR Action Action Date Dose Rate Site diphenhydrAMINE (BENADRYL) injection 25 mg 25 mg, Intravenous, Once, 1 dose, On Mon02/14/24 at 1445, For IV administration, give no faster than 25 mg/min. Given 02/14/2024 2:45 PM PILOT MANAGER 25 mg ipratropium-albuterol (DUONEB) 0.5-2.5 (3) MG/3ML nebulizer solution 3 mL 3 mL, Nebulization, Once, 1 dose, On Mon02/14/24 at 1430 Given 02/14/2024 2:38 PM PILOT MANAGER 3 mLs ipratropium-albuterol (DUONEB) 0.5-2.5 (3) MG/3ML nebulizer solution 3 mL 3 mL, Nebulization, Once, 1 dose, On Mon02/14/24 at 1615 Given 02/14/2024 4:51 PM PILOT MANAGER 3 mLs morphine injection 4 mg 4 mg, Intravenous, Once, 1 dose, On Mon02/14/24 at 1530 Given 02/14/2024 3:32 PM PILOT MANAGER 4 mg normal saline 0.9 % flush 3-10 mL 3-10 mL, Intravenous, Every 8 hours, First dose on Mon02/14/24 at 1430, Until Discontinued normal saline 0.9 % flush 3-10 mL 3-10 mL, Intravenous, As needed, Line care, Starting on Mon02/14/24 at 1429, Until Mon02/14/24 at 1913 prochlorperazine (COMPAZINE) injection 10 mg 10 mg, Intravenous, Once, 1 dose, On Mon02/14/24 at 1445, If giving IV, administer diluted or undiluted by slow IV push at a maximum rate of 5 mg/minute. To reduce the risk of hypotension the patient must remain lying down and be observed for 30 minutes after receiving the medication. Given 02/14/2024 2:45 PM PILOT MANAGER 10 mg documented in this encounter Active and Recently Administered Medications Times are shown in PILOT MANAGER. Scheduled Medication Order 02/12/2024 02/13/2024 02/14/2024 diphenhydrAMINE (BENADRYL) injection 25 mg (COMPLETED) 25 mg, Intravenous, Once, 1 dose, On Mon02/14/24 at 1445, For IV administration, give no faster than 25 mg/min. 1445 (Given - Provid er: Ela Pace RN) ipratropium-albuterol (DUONEB) 0.5-2.5 (3) MG/3ML nebulizer solution 3 mL (COMPLETED) 3 mL, Nebulization, Once, 1 dose, On Mon02/14/24 at 1430 1438 (Given - Provid er: Sandy Muñoz, ERLINDA) ipratropium-albuterol (DUONEB) 0.5-2.5 (3) MG/3ML nebulizer solution 3 mL (COMPLETED) 3 mL, Nebulization, Once, 1 dose, On Mon02/14/24 at 1615 1651 (Given - Provid er: Sandy Muñoz, ERLINDA) morphine injection 4 mg (COMPLETED) 4 mg, Intravenous, Once, 1 dose, On Mon02/14/24 at 1530 1532 (Given - Provid er: Ela Pace RN) normal saline 0.9 % flush 3-10 mL 3-10 mL, Intravenous, Every 8 hours, First dose on Mon02/14/24 at 1430, Until Discontinued 1442 (Not Given - Pr ovider: Ela Pace RN - Reason: Patient already took) prochlorperazine (COMPAZINE) injection 10 mg (COMPLETED) 10 mg, Intravenous, Once, 1 dose, On Mon02/14/24 at 1445, If giving IV, administer diluted or undiluted by slow IV push at a maximum rate of 5 mg/minute. To reduce the risk of hypotension the patient must remain lying down and be observed for 30 minutes after receiving the medication. 1445 (Given - Provid er: Ela Pace RN) PRN Medication Order 02/12/2024 02/13/2024 02/14/2024 normal saline 0.9 % flush 3-10 mL 3-10 mL, Intravenous, As needed, Line care, Starting on Mon02/14/24 at 1429, Until Mon02/14/24 at 1913 documented in this encounter Care Teams Pharmacy Resident Relationship Specialty Start Date End Date Hermes Ramirez III, MD [address] [address] PCP - General FAMILY PRACTICE 06/20/17 documented as of this encounter
--- OUTSIDE RECORDS SUMMARY | 2024-03-20 11:50 | XMS_ITS | Encounter Summary ---
Author Organization [facility] Address [address] [place] [address]. 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
--- OUTSIDE RECORDS SUMMARY | 2024-03-20 11:50 | XMS_ITS | Encounter Summary ---
Author Organization [facility] Address [address] [place] [address]. [place], [place] [address] [place] [id number] Care Team Providers Care Animal Care Worker Name Role Phone Ashley ZUNIGA MD, Hermes Perez Primary Care Provid er Encounter Details Date Type Department Care Team (Latest Contact Info) Description 02/19/2024 Travel Social History Tobacco Use Types Packs/Day [...] any time in the past 12 m [facility], were you homeless or living in a fci (including now)? 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
--- OUTSIDE RECORDS SUMMARY | 2024-03-20 11:50 | XMS_ITS | Clinical Summary ---
Author Organization [facility] Address [address] [place] [address]. [place], [place] [address] [place] [id number] Care Team Providers Care Glass Vial Filler Name Role Phone Ashley ZUNIGA MD, Sherry Perez Primary Care Provid er Allergies Active Allergy Reactions Criticality Noted Date Comments Azithromycin Unknown High 04/24/2020 Medication interaction Erythromycin Unknown,Other (see comment) High 10/06/2019 Other reaction(s): Medication interaction Medication interaction Gentamicin Other (see comment) High 04/23/2020 Medication interaction Ketorolac Other (see comment) Medium 04/23/2020 Ketorolac Tromethamine Other (see comment) 10/06/2019 KIDNEY Other reaction(s): Kidney failure as a complication of care. RENAL TOXICITY. Nsaids Other (see comment) 02/20/2024 Contraindicated to imunosupressants Medications metoprolol succinate ER (TOPROL-XL) 100 MG 24 hr tablet Take 1 tablet (100 mg total) by mouth 2 (two) times a day. 12/30/19 Active amLODIPine (NORVASC) 5 MG tablet Take 1 tablet (5 mg total) by mouth daily. Active gabapentin (NEURONTIN) 600 MG tablet Take 1 tablet (600 mg total) by mouth 2 (two) times daily. Active LORazepam (ATIVAN) 0.5 MG tablet Take 1 tablet (0.5 mg total) by mouth. 10/27/19 Active topiramate (TOPAMAX) 100 MG tablet Take 1 tablet (100 mg total) by mouth 2 (two) times daily. 10/28/19 Active predniSONE (DELTASONE) 5 mg tablet Take 1 tablet (5 mg total) by mouth daily. Active albuterol sulfate HFA 108 (90 Base) MCG/ACT inhaler Inhale 2 puffs into the lungs every 4 (four) hours as needed for Wheezing or Shortness of breath. 6.7 g 02/12/20 Active azaTHIOprine (IMURAN) 50 MG tablet Take 1 tablet (50 mg total) by mouth daily. Active ENVARSUS XR 4 MG TABLET SR 24 HR Take 4 mg by mouth daily. Takes with 1 mg tablets x 3 (total dose is 7 mg) 11/30/19 Active ENVARSUS XR 1 MG TABLET SR 24 HR tablet Take 3 tablets (3 mg total) by mouth every morning before breakfast. Takes with 4 mg tablet for total of 7 mg daily 11/30/19 Active dextromethorp uriostegui-guaiFENes in ER (MUCINEX DM) 30-600 MG TABLET SR 12 HR 12 hr tablet Take 1 tablet by mouth 2 (two) times daily for 30 days. 60 tablet 02/20/20 24 025 Active venlafaxine (EFFEXOR) 37.5 MG tablet Take 1 tablet (37.5 mg total) by mouth daily. 60 tablet 02/20/20 Active cycloSPORINE modified (NEORAL) 100 MG capsule Take 175 mg by mouth 2 (two) times daily. Discontinued(E rror) venlafaxine (EFFEXOR) 37.5 MG tablet Take 1 tablet (37.5 mg total) by mouth. 04/21/19 Discontinued aspirin 81 MG chewable tablet Chew 1 tablet (81 mg total) by mouth daily. Discontinued(E rror) baclofen (LIORESAL) 10 MG tablet Take 1 tablet (10 mg total) by mouth 3 (three) times daily. 15 tablet 07/22/19 Discontinued(E rror) enoxaparin (LOVENOX) 100 mg/mL syringe Inject 1 mL (100 mg total) into the skin daily. 10 mL 02/10/20 Discontinued(E rror) doxycycline hyclate (VIBRAMYCIN) 100 MG capsule Take 1 capsule (100 mg total) by mouth 2 (two) times daily for 10 days. 20 capsule 11/25/20 24 12/05/2 024 amoxicillin (AMOXIL) 875 MG tablet Take 1 tablet (875 mg total) by mouth 2 (two) times daily for 10 days. 20 tablet 02/12/20 24 024 ipratropium-a lbuterol (DUONEB) 0.5-2.5 (3) MG/3ML Solution Take 3 mLs by nebulization every 6 (six) hours as needed. 360 mL 02/14/20 24 024 oxyCODONE-dayron taminophen (PERCOCET) 5-325 MG tabletIndicat ions:Acute Pain < 3 Day Supply Take 1 tablet by mouth every 6 (six) hours as needed for Pain. 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/26/2016 Gastric ulcer 10/24/2016 Pancreatitis ([facility]) 10/24/2016 Chronic kidney disease 10/24/2016 Anemia, unspecified 05/04/2012 Benign gestational thrombocytopenia ([facility] /[facility]) 01/04/2012 History of cone biopsy of cervix 01/04/2012 History of liver transplant ([facility]) Acute pharyngitis 11/19/2010 Abdominal pain 11/13/2010 Aphthous ulcer 11/01/2010 Anxiety 07/21/2010 Encounters Date Type Department Care Team Description 02/22/2024 Hospital Follow-up Call [facility] [address] [place] [address] Zulma Ardon RN 02/19/2024 10:00 PM MAT SEWER - 02/20/2024 9:33 AM MAT SEWER Emergency [facility] [address] [place] [address] Eric Marques MD Wali, Neehal, MD Cough Discharge Disposition: Left Against Medical Advice 02/19/2024 Travel 02/16/2024 7:49 PM MAT SEWER - 02/16/2024 11:28 PM [facility] Emergency [address] [address] Tejas Weiss DNP Shortness Of Breath Discharge Disposition: Home or Self Care (Routine Discharge) 02/16/2024 Travel 02/14/2024 2:16 PM MAT SEWER - 02/14/2024 5:[address] [address] Trae Denton MD Shortness Of Breath Discharge Disposition: Home or Self Care (Routine Discharge) 02/14/2024 Travel 02/12/2024 12:14 PM MAT SEWER - 02/12/2024 5:[address] [address] Maria Isabel Owens NP Headache; Shortness Of Breath ; Generalized Body Aches Discharge Disposition: Home or Self Care (Routine Discharge) 02/12/2024 Travel 02/10/2024 3:24 PM MAT SEWER - 02/10/2024 9:[address] [address] Danish Menjivar MD Shortness Of Breath Discharge Disposition: Home or Self Care (Routine Discharge) 02/10/2024 Travel 12/22/2023 12:12 PM CDT - 12/22/2023 3:[address] [address] Maria Isabel Owens NP Fall; Back Pain; Hip Pain Discharge Disposition: Home or Self Care (Routine Discharge) 12/22/2023 Travel from Last 3 Months Family History Medical History Relation Comments Diabetes Neg Hx Social History Tobacco Use Types Packs/Day Years [...] in the past 12 m [facility], were you homeless or living in a alf (including now)? No 02/20/2024 Comments No Sex and Gender Information Value Date Recorded Sex Assigned at Not on file Legal Sex Female 9:15 PM MAT SEWER Gender Identity Not on file Sexual Orientation Not on file Last Filed Vital Signs Vital Sign Reading Time Taken Comments Blood Pressure 125/84 02/20/2024 8:23 AM MAT SEWER Pulse 67 02/20/2024 8:23 AM MAT SEWER Temperature 36.3 ??C (97.4 ??F) 02/20/2024 3:29 AM CS T Respiratory Rate 22 02/20/2024 3:29 AM MAT SEWER Oxygen Saturation 96% 02/20/2024 8:23 AM MAT SEWER Inhaled Oxygen Concentration - - Weight 88.8 kg (195 lb 12.3 oz) 02/20/2024 3:29 AM MAT SEWER Height 157.5 cm (5' 2 ) 02/19/2024 7:21 PM MAT SEWER Body Mass Index 35.81 02/19/2024 7:21 PM MAT SEWER Plan of Treatment Health Maintenance Due Date Last Done Comments Annual Physical 1985 COVID-19 Vaccine (#1) 10/04/1987 Pneumococcal Vaccine: Pediatrics (0 to 5 Years) and At-Risk Patients (6 to 64 Years) (1 of 2 - PCV) 1988 Hepatitis B Vaccines (3 of 3 - 19+ 3-dose series) 04/11/2018 11/10/2017, 10/09/2017, 10/09/2017 Mammogram Screening 2022 Influenza Adult (#1) 2023 Cervical Cancer Screening Pap Smear (Age 30 to 64) Every 3 Years 06/20/2025 06/20/2022, 06/20/2022, 04/28/2020, Additional history exists Cervical Cancer Screening Pap with HPV Testing (Age 30 to 64) Every 5 Years 06/21/2027 06/20/2022, 06/20/2022 Cervical Cancer Screening with HPV 06/21/2027 DTaP, Tdap and Td Vaccines (5 - Td or Tdap) 10/19/2031 10/18/2021, 05/10/2017, 03/20/2017, Additional history exists Hepatitis C Completed 11/07/2023, 10/19, 11/07/2023 HPV Vaccines Aged Out No longer eligi ble based on patient's age to complete this topic Meningococcal Vaccine Aged Out No carson sarah eligible based on patient's age to complete this topic RSV Immunizations Under 20 Months Aged Out No longer eligible based on patient's age to complete this topic Procedures Procedure Name Priority Date/Time Associated Diagnosis Comments TROPONIN, QUANT STAT 02/20/2024 12:16 AM MAT SEWER PRO-BRAIN NATRIURETIC PEPTIDE STAT 02/20/2024 12:16 AM MAT SEWER BASIC METABOLIC PANEL STAT 02/19/2024 8:08 PM MAT SEWER CBC W/DIFF AUTOMATED STAT 02/19/2024 8:08 PM MAT SEWER XR CHEST PA+LAT STAT 02/19/2024 7:39 PM MAT SEWER HETEROPHILE ANTIBODIES,SCREEN STAT 02/16/2024 9:52 PM MAT SEWER COMPREHENSIVE METABOLIC PANEL STAT 02/16/2024 9:52 PM MAT SEWER CBC W/DIFF AUTOMATED STAT 02/16/2024 9:52 PM MAT SEWER XR CHEST PORTABLE STAT 02/16/2024 8:4 6 PM MAT SEWER STREP A RAPID Nurse Collected Priority 02/16/2024 8:11 PM MAT SEWER RESPIRATORY PCR PANEL 2 Nurse Collected Priority 02/16/2024 8:[address] CHEST WO CON STAT 02/14/2024 4:52 PM MAT SEWER XR CHEST PA+LAT STAT 02/14/2024 3:00 PM MAT SEWER HCG QUANT (SERUM)-CHORIONIC GONADOTROPIN STAT 02/14/2024 2:43 PM MAT SEWER PRO-BRAIN NATRIURETIC PEPTIDE STAT 02/14/2024 2:43 PM MAT SEWER TROPONIN, QUANT STAT 02/14/2024 2:43 PM MAT SEWER BASIC METABOLIC PANEL STAT 02/14/2024 2:43 PM MAT SEWER CBC W/DIFF AUTOMATED STAT 02/14/2024 2:43 PM MAT SEWER ECG 12-LEAD STAT 02/12/2024 3:41 PM MAT SEWER TROPONIN, QUANT STAT 02/12/2024 2:53 PM MAT SEWER PRO-BRAIN NATRIURETIC PEPTIDE STAT 02/12/2024 2:53 PM MAT SEWER LACTIC ACID TIMED 02/12/2024 2:53 PM MAT SEWER COMPREHENSIVE METABOLIC PANEL STAT 02/12/2024 2:53 PM MAT SEWER CBC W/DIFF AUTOMATED STAT 02/12/2024 2:53 PM MAT SEWER NM LUNG SCAN VENT+PERF STAT 02/12/2024 2:[address] CHEST WO CON STAT 02/12/2024 1:14 PM MAT SEWER LACTIC ACID W REFLEX (SEPSIS) TIMED 02/10/2024 7:53 PM MAT SEWER LACTIC ACID W REFLEX (SEPSIS) STAT 02/10/2024 4:12 PM MAT SEWER BASIC METABOLIC PANEL STAT 02/10/2024 4:12 PM MAT SEWER CBC W/DIFF AUTOMATED STAT 02/10/2024 4:12 PM MAT SEWER CULTURE, BACTERIA, BLOOD STAT 02/10/2024 4:11 PM MAT SEWER XR CHEST PORTABLE STAT 02/10/2024 4:[address] THOR SPINE WO CON STAT 12/22/2023 1:[address] LUMB SPINE WO CON STAT 12/22/2023 1:32 PM CDT XR PELVIS 1 OR 2 VIEWS STAT 12/22/2023 1:05 PM CDT XR KNEE JULITO 3V STAT 12/22/2023 1:05 PM CDT HUMAN PAPILLOMAVIRUS, HIGH-RISK TYPES Routine 06/20/2022 12:00 PM CDT CYTOPATH CERV/VAG THIN LAYER Routine 06/20/2022 7:46 AM CDT from Last 3 Months or Most Recently Relevant to Health Maintenance Results * (ABNORMAL) PRO-BRAIN NATRIURETIC PEPTIDE (02/20/2024 12:16 AM MAT SEWER) Only the most recent of3 resultswithin the time period is included. PRO-B TYPE NATRIURETIC PEPTIDE 952(H) <125 PG/ML 02/20/2024 12:48 AM MAT SEWER [facility] Comment: AGE INDEPENDENT: <300 PG/ML [...] FOR ACUTE CHF. 02/20/2024 12:1 6 AM MAT SEWER Ziyad EDMOND LABORATORY Final Resul t Performing Organization Address [facility] Co de Phone Number [facility] [address] [place] [address], [phone] * TROPONIN, QUANT (02/20/2024 12:16 AM MAT SEWER) Only the most recent of3 resultswithin the time period is included. TROPONIN I HIGH SENSITIVITY 7 0 - 53 ng/L 02/20/2024 1:34 AM MAT SEWER [facility] 02/20/2024 12:1 6 AM MAT SEWER Ziyad EDMOND LABORAT[facility] Final Resul t Performing Organization Address City/[facility] Co de Phone Number [facility] [address] [place] [address], [phone] * (ABNORMAL) BASIC METABOLIC PANEL (02/19/2024 8:08 PM MAT SEWER) Only the most recent of3 resultswithin the time period is included. SODIUM S/P/B 141 136 - 145 MMOL/L 02/19/2024 9:02 PM [facility] POTASSIUM S/P/B 4.6 3.5 - 5.1 MMOL/L 02/19/2024 9:02 PM [facility] CHLORIDE S/P/B 114 97 - 115 MMOL/L 02/19/2024 9:02 PM [facility] CO2 21.4 21.0 - 32.0 MMOL/L 02/19/2024 9:02 PM [facility] GLUCOSE 122(H) 74 - 106 MG/DL 02/19/2024 9:02 PM [facility] BUN 29(H) 7 - 18 MG/DL 02/19/2024 9:02 PM [facility] CREATININE S/P/B 1.64(H) 0.55 - 1.02 MG/DL 02/19/2024 9:02 PM [facility] CALCIUM S/P/B 9.1 8.5 - 10.1 MG/DL 02/19/2024 9:02 PM [facility] ANION GAP 5.6 2.0 - 10.0 MMOL/L 02/19/2024 9:02 PM [facility] OSMOLALITY (CALC) 299 MOSM/KG 024 9:02 PM [facility] Comment:REFERENCE RANGE NOT ESTABLISHED GFR ESTIMATE 40(L) >90 ML/MIN/1. 73 M2 02/19/2024 9:02 PM [facility] GFR NOTES GFR REFERENCE S: 02/19/2024 9:02 PM [facility] Comment: THE ESTIMATED GFR IS CALCULATED [...] FAILURE: <15 ml/min/1.73 m2 02/19/2024 8:08 PM MAT SEWER us Huong Farris NP LABORATORY Final R esult [facility] [address] [place] [address], [place] [phone] * (ABNORMAL) CBC W/DIFF AUTOMATED (02/19/2024 8:08 PM MAT SEWER) Only the most recent of5 resultswithin the time period is included. WBC 8.66 4.00 - 10.80 x10'3/uL 02/19/2024 8:37 PM MAT SEWER [facility] RBC 4.01(L) 4.10 - 5.40 x10'6/uL 02/19/2024 8:37 PM MAT SEWER [facility] HGB 14.1 12.0 - 16.0 G/DL 02/19/2024 8:37 PM MAT SEWER [facility] HCT 43.0 36.0 - 47.0 % 02/19/2024 8:37 PM MAT SEWER [facility] MCV 107.2(H) 78.0 - 100.0 FL 02/19/2024 8:37 PM MAT SEWER [facility] MCH 35.2(H) 27.0 - 31.0 PG 02/19/2024 8:37 PM MAT SEWER [facility] MCHC 32.8(L) 33.0 - 36.0 G/DL 02/19/2024 8:37 PM [facility] RDW 13.7 11.5 - 14.5 % 02/19/2024 8:37 PM [facility] PLT 166 150 - 350 x10'3/uL 02/19/2024 8:37 PM [facility] MPV 10.5(H) 7.4 - 10.4 FL 02/19/2024 8:37 PM [facility] DIFFERENTIAL TYPE AUTOMATED DIFFERENTIAL 02/19/2024 8:37 PM MAT SEWER [facility] SEG NEUTROPHILS 75.8 % 8:37 PM [facility] LYMPHOCYTES 16.5 % 02/19/2024 8:37 PM [facility] MONOCYTES 5.3 % 02/19/2024 8:37 PM [facility] EOSINOPHILS 1.5 % 02/19/2024 8:37 PM [facility] BASOPHILS 0.2 % 02/19/2024 8:37 PM [facility] IMMATURE GRANS % 0.7 % 02/19/20 8:37 PM [facility] ABS. NEUTROPHILS 6.56 1.60 - 8.30 x10'3/uL 02/19/2024 8:37 PM [facility] ABS. LYMPHOCYTES 1.43 0.80 - 4.70 x10'3/uL 02/19/2024 8:37 PM MAT SEWER [facility] ABS. MONOCYTES 0.46 0.00 - 1.50 x10'3/uL 02/19/2024 8:37 PM MAT SEWER [facility] ABS. EOSINOPHILS 0.13 0.00 - 0.40 x10'3/uL 02/19/2024 8:37 PM [facility] ABS. BASOPHILS 0.02 0.00 - 0.20 x10'3/uL 02/19/2024 8:37 PM [facility] ABS. IMMATURE GRANULOCYTES 0.06(H) 0.00 - 0.03 x10'3/uL 02/19/2024 8:37 PM MAT SEWER [facility] ABS. NUCLEATED RBC'S 0.00 0.00 - 0.01 x10'3/uL 02/19/2024 8:37 PM MAT SEWER [facility] NRBC % 0.0 % 02/19/2024 8:37 PM MAT SEWER [facility] 02/19/2024 8:08 PM MAT SEWER us Huong Farris [employer] LABORATORY Final R esult [facility] [address] [place] [address], [phone] * XR CHEST PA+LAT (02/19/2024 7:39 PM MAT SEWER) Only the most recent of2 resultswithin the time period is included. Anatomical Region Laterality Modality Chest Radiographic Katy ging 02/19/2024 7:58 PM MAT SEWER Impressions 02/19/2024 7:59 PM MAT SEWER IMPRESSION: 1. ??CARDIOMEGALY WITHOUT EVIDENCE OF CHF. Signed: Mike Donnelly MD Referred By: ?? Interpreted By: Mike Donnelly MD, 02/19/2024 7:58 PM Narrative 02/19/2024 7:59 PM MAT SEWER [facility] [address] [place], [place] [address] PATIENT NAME: MISHA BROWNE EXAM: Chest 2 view DATE OF EXAM: 02/19/2024 COMPARISON EXAM: 02/16/2024 INDICATION: Recent pneumonia, short of breath TECHNIQUE: PA and lateral FINDINGS: Mild cardiomegaly. ??Pulmonary vasculature does not appear significantly congested. ??No significant acute pulmonary parenchymal opacity. ??No pleural effusion. ??No hyperinflation. Procedure Note Mike Donnelly MD - 02/19/[address] [address] PATIENT NAME: MISHA BROWNE EXAM: Chest 2 [...] Farris NP GENERAL IMAGING Final R esult * (ABNORMAL) COMPREHENSIVE METABOLIC PANEL (02/16/2024 9:52 PM MAT SEWER) Only the most recent of2 resultswithin the time period is included. SODIUM S/P/B 140 136 - 145 MMOL/L 02/16/2024 10:10 PM MAT SEWER [facility] POTASSIUM S/P/B 4.7 3.5 - 5.1 MMOL/L 02/16/2024 10:10 PM [facility] Comment:SLIGHT HEMOLYSIS, RE SULT MAY BE AFFECTED. CHLORIDE S/P/B 114 97 - 115 MMOL/L 02/16/2024 10:10 PM MAT SEWER [facility] CO2 20.3(L) 21.0 - 32.0 MMOL/L 02/16/2024 10:10 PM MAT SEWER [facility] GLUCOSE 93 74 - 106 MG/DL 02/16/2024 10:10 PM [facility] BUN 22(H) 7 - 18 MG/DL 02/16/2024 10:10 PM [facility] CREATININE S/P/B 1.55(H) 0.55 - 1.02 MG/DL 02/16/2024 10:10 PM [facility] CALCIUM S/P/B 9.1 8.5 - 10.1 MG/DL 02/16/2024 10:10 PM [facility] BILIRUBIN TOTAL S/P/B 0.7 0.2 - 1.0 MG/DL 02/16/2024 10:10 PM [facility] ALKALINE PHOSPHATASE S/P/B 307(H) 37 - 98 U/L 02/16/2024 10:10 PM [facility] AST 32 15 - 37 U/L 02/16/2024 10:10 PM [facility] ALT 50 13 - 56 U/L 02/16/2024 10:10 PM [facility] TOTAL PROTEIN S/P/B 6.9 6.4 - 8.2 G/DL 02/16/2024 10:10 PM [facility] ALBUMIN S/P/B 3.3(L) 3.4 - 5.0 G/DL 02/16/2024 10:10 PM [facility] ANION GAP 5.7 2.0 - 10.0 MMOL/L 02/16/2024 10:10 PM [facility] OSMOLALITY (CALC) 293 MOSM/KG 024 10:10 PM [facility] Comment:REFERENCE RANGE NOT ESTABLISHED GFR ESTIMATE 43(L) >90 ML/MIN/1. 73 M2 02/16/2024 10:10 PM [facility] GFR NOTES GFR REFERENCE S: 02/16/2024 10:10 PM [facility] Comment: THE ESTIMATED GFR IS CALCULATED [...] ml/min/1.73 m2 G5,KIDNEY FAILURE: <15 ml/min/1.73 m2 02/16/2024 9:52 PM MAT SEWER Tejas Weiss DNP LABORATORY Final Resul t Performing Organization Address [facility] de Phone Number [facility] [address] [place] [address], [place] [phone] * HETEROPHILE ANTIBODIES,SCREEN (02/16/2024 9:52 PM MAT SEWER) MONO TEST NEGATIVE NEGATIVE 02/16/2024 10:09 PM MAT SEWER [facility] 02/16/2024 9:52 PM MAT SEWER Tejas Weiss DNP LABORATORY Final Resul t Performing Organization Address [facility] de Phone Number [facility] [address] [place] [address], [place] [phone] * XR CHEST PORTABLE (02/16/2024 8:46 PM MAT SEWER) Only the most recent of2 resultswithin the time period is included. Anatomical Region Laterality Modality Chest Radiographic Katy ging 02/16/2024 9:06 PM MAT SEWER Impressions 02/16/2024 9:59 PM MAT SEWER IMPRESSION: No significant interval change, as detailed above. The attending radiologist has reviewed the image(s) and agrees with the content of this report. Ordered By: TEJAS WEISS Interpreted By: So Patel MD, 02/16/2024 9:06 PM Narrative 02/16/2024 9:59 PM MAT SEWER [address] [address] EXAM: CHEST RADIOGRAPH Exam Date: 02/16/2024 7:49 PM INDICATION: Bronchitis follow-up, worsening symptoms TECHNIQUE: Supine Portable AP view COMPARISON: CT chest 02/14/2024 FINDINGS: Stable cardiac mediastinal silhouette with borderline cardiomegaly. Stable moderate diffuse interstitial thickening similar to prior exam. No new areas of focal peribronchial cuffing. No new focal superimposed lung consolidation. No clinically significant size pneumothorax. Small superimposed pleural effusions may be present versus summation artifact. Trace osseous degenerative changes. Procedure Note Marisa Francisco MD - 02/16/[address] [address] EXAM: CHEST RADIOGRAPH Exam Date: 02/16/2024 7:49 PM INDICATION: Bronchitis follow-up, worsening symptoms TECHNIQUE: Supine Portable AP view COMPARISON: CT chest 02/14/2024 FINDINGS: Stable cardiac mediastinal silhouette with borderline cardiomegaly. Stablemoderate diffuse interstitial thickening similar to prior exam. No newareas of focal peribronchial cuffing. No new focal superimposed lungconsolidation. No clinically significant size pneumothorax. Smallsuperimposed pleural effusions may be present versus summation artifact.Trace osseous degenerative changes. IMPRESSION: No significant interval change, as detailed above. The attending radiologist has reviewed the image(s) and agrees with thecontent of this report. Ordered By: TEJAS WEISS Interpreted By: So Patel MD, 02/16/2024 9:06 PM us Tejas Weiss DNP GENERAL IMAGING Final Resul t * (ABNORMAL) BIOFIRE PCR UPPER RESPIRATORY PROFILE (RESPIRATORY PCR PANEL 2) (02/16/2024 8:11 PM MAT SEWER) ADENOVIRUS PCR (RESP) NOT DETECTED NOT DETECTED 02/16/2024 9:16 PM MAT SEWER [facility] CORONAVIRUS 229E PCR (RESP) NOT DETECTED NOT DETECTED 02/16/2024 9:16 PM MAT SEWER [facility] CORONAVIRUS HKU1 PCR (RESP) NOT DETECTED NOT DETECTED 02/16/2024 9:16 PM MAT SEWER [facility] CORONAVIRUS NL63 PCR (RESP) NOT DETECTED NOT DETECTED 02/16/2024 9:16 PM MAT SEWER [facility] CORONAVIRUS OC43 PCR (RESP) NOT DETECTED NOT DETECTED 02/16/2024 9:16 PM MAT SEWER [facility] METAPNEUMOVIRUS PCR (RESP) NOT DETECTED NOT DETECTED 02/16/2024 9:16 PM MAT SEWER [facility] RHINOVIRUS/ENTEROV IRUS PCR (RESP) DETECTED(AA ) NOT DETECTED 02/16/2024 9:16 PM MAT SEWER [facility] Comment: RESULTS PHONED TO AND READ BACK BY: MARIJA [id number]) [facility] IN ED 02/16 2116 TLV INFLUENZA A PCR (RESP) NOT DETECTED NOT DETECTED 02/16/2024 9:16 PM MAT SEWER [facility] INFLUENZA B PCR (RESP) NOT DETECTED NOT DETECTED 02/16/2024 9:16 PM MAT SEWER [facility] PARAINFLUENZA 1 PCR (RESP) NOT DETECTED NOT DETECTED 02/16/2024 9:16 PM MAT SEWER [facility] PARAINFLUENZA 2 PCR (RESP) NOT DETECTED NOT DETECTED 02/16/2024 9:16 PM MAT SEWER [facility] PARAINFLUENZA 3 PCR (RESP) NOT DETECTED NOT DETECTED 02/16/2024 9:16 PM MAT SEWER [facility] PARAINFLUENZA 4 PCR (RESP) NOT DETECTED NOT DETECTED 02/16/2024 9:16 PM MAT SEWER [facility] RSV PCR (RESP) NOT DETECTED NOT DETECTED 02/16/2024 9:16 PM MAT SEWER [facility] B PARAPERTUSIS PCR (RESP) NOT DETECTED NOT DETECTED 02/16/2024 9:16 PM MAT SEWER [facility] BORDETELLA PERTUSSIS PCR (RESP) NOT DETECTED NOT DETECTED 02/16/2024 9:16 PM MAT SEWER [facility] CHLAMYDOPHILA PNEUMONIAE PCR (RESP) NOT DETECTED NOT DETECTED 02/16/2024 9:16 PM MAT [facility] MYCOPLASMA PNEUMONIAE PCR (RESP) NOT DETECTED NOT DETECTED 02/16/2024 9:16 PM MAT [facility] CORONAVIRUS SARS COV 2 PCR (RESP) NOT DETECTED NOT DETECTED 02/16/2024 9:16 PM MAT [facility] NASOPHARYNGEAL SWAB / Unknown 02/16/2024 8:11 PM MAT [facility] us Tejas Weiss DNP MICROBIOLOGY - [facility]AL [facility] Final Result Performing Organization Address City/[facility]/ZIP Co de Phone Number [facility] [address] [place] [address], [place] [phone] * STREP A RAPID (02/16/2024 8:11 PM MAT SE[facility]ER) SPECIMEN SOURCE THROAT 02/16/2024 8:11 PM MAT [facility] RAPID STREP TEST NEGATIVE NEGATIVE 02/16/2024 8:33 PM MAT [facility] Comment:NEGATIVE FOR GROUP A BETA STREP ANTIGEN STRUCTURE OF ANTERIOR PORTION OF NECK / Unknown 02/16/2024 8:11 PM MAT SE[facility] us Tejas Weiss DNP MICROBIOLOGY - GENERAL ORDE RABVERONICA Final Result Performing Organization Address [facility]/ZIP Co de Phone Number [facility] [address] [place] [address], [place] [phone] * CT CHEST WO CON (02/14/2024 4:52 PM MAT [facility]) Only the most recent of2 resultswithin the time period is included. Anatomical Region Laterality Modality Chest Computed Tomogra phy 02/14/2024 4:57 PM MAT [facility] Impressions 02/14/2024 5:04 PM [facility] Impression: 1. Improved pulmonary opacities since the [...] 02/14/2024 4:57 PM Narrative 02/14/2024 5:04 PM MAT [facility] [address] [address] Examination: CT CHEST WO CON Clinical Information: [...] thickening, or calcification. UPPER ABDOMEN The visualized [facility] kidneys appear atrophic. Prominent vascular structures in the left upper quadrant, potentially varices. BONES/SOFT TISSUES No significant lesion. Procedure Note Gabriel Alberto MD - 02/14/[address] [place], [place] [address] Examination: CT CHEST WO CON Clinical Information: [...] thickening, or calcification. UPPER ABDOMEN The visualized [facility] kidneys appear atrophic. Prominent vascularstructures in the [...] Randy Diamond MD CT Final Result * HCG QUANT SERUM - CHORIONIC GONADOTROPIN () (02/14/2024 2:43 PM MAT SEWER) HCG QUANTITATIVE <1 MIU/ML 02/14/20 24 3:42 PM MAT SEWER [facility] Comment: <5 IS NEGATIVE 5-25 IS BORDERLINE >25 IS POSITIVE ASSAY PERFORMED BY CHEMILUMINESCENCE METHODOLOGY USING [employer] [facility]. PATIENT RESULTS DETERMINED BY ASSAYS USING DIFFERENT MANUFACTURERS FOR METHODS MAY NOT BE COMPARABLE. 02/14/2024 2:43 PM MAT SEWER us Randy Diamond MD LABORATORY Final Result [facility] [address] [place] [address], [id number] * ECG 12 lead (02/12/2024 3:41 PM MAT SEWER) 02/12/2024 3:41 PM MAT SEWER Narrative [facility] - 02/13/2024 3:58 AM MAT SEWER ?SJS-ED ? Test Date: ?2024-02-12 Pat Name: ? MISHA BROWNE ?Department: ?? 70 ? Room: ? [id number] Gender: ? Female ? 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 Requested By: MARIA ISABEL OWENS Order Number: [id number] ? Reading MD: ?? Bernard Mario ? Measurements Intervals ?[place] ? Rate: ? 109 ?P: ?140 VA: ? 177 ?QRS: ?-12 QRSD: ? 74 ? T: ?80 QT: ? 338 ? QTc: ?455 ? 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: : 1980 Requested By: MARIA ISABEL OWENS Order Number: [id number] Florencia MD: Bernard Martin Measurements Intervals [place] Rate: 109 P: 140 VA: 177 QRS: -12 QRSD: 74 T: 80 QT: 338 QTc: 455 Interpretive Statements ECTOPIC ATRIAL TACHYCARDIA LEFT ATRIAL ENLARGEMENT [-0.15mV P-WAVE IN V1/V2] LOW QRS VOLTAGE IN PRECORDIAL LEADS [QRS DEFLECTION < 1.0 mV IN CHESTLEADS] ANTEROSEPTAL MYOCARDIAL INFARCTION , OF INDETERMINATE AGE [40+ ms Q WAVEIN V1-V4] SEWER Maria Isabel Owens [employer] O[employer] ECG ORDERABLES Final Resul t Performing Organization Address [facility] Co de Phone Number [facility] * LACTIC ACID - SINGLE (02/12/2024 2:53 PM MAT SEWER) LACTIC ACID VENOUS 0.8 0.4 - 2.0 MMOL/L 02/12/2024 3:22 PM MAT SEWER [facility] 02/12/2024 2:53 PM MAT SEWER Maria Isabel Owens [employer] OBSERVER LABORATORY Final Resul t Performing Organization Address [facility] de Phone Number [facility] [address] [place] [address], [place] [phone] * NM LUNG SCAN VENT+PERF (02/12/2024 2:11 PM MAT SEWER) Anatomical Region Laterality Modality Chest Nuclear Medicine 02/12/2024 2:13 PM MAT SEWER Impressions 02/12/2024 2:18 PM MAT SEWER IMPRESSION: Low probability for acute pulmonary embolism. Referred By: ?? Interpreted By: Shorty Ardon MD, 02/12/2024 2:13 PM Narrative 02/12/2024 2:18 PM MAT SEWER [place] [address] Ventilation-Perfusion Scintigraphy Exam Date: 02/12/2024. Indications: 43-year-old female with shortness of breath and elevated d-dimer. ??Evaluate for evidence of acute pulmonary embolism. Radiopharmaceutical: 23.5 mCi Xe-133 gas by inhalation and 3.8 mCi Tc-99m MAA IV. Comparison: -CT chest without contrast dated 02/12/2024 at 1313 hours. -AP chest film dated 02/10/2024 at 1551 hours. Findings: The Xe-133 ventilation images demonstrate a mildly heterogeneous distribution of activity on the initial breath and equilibrium phase images. There is mild patchy bilateral Xe-133 retention on the washout phase images. ??The perfusion images demonstrate a mildly heterogeneous distribution of activity bilaterally with no segmental defects. Procedure Note Shorty Ardon MD - 02/12/[address] [address] Ventilation-Perfusion Scintigraphy Exam Date: 02/12/2024. Indications: 43-year-old female with shortness of breath and elevated d-dimer.Evaluate for evidence of acute pulmonary embolism. Radiopharmaceutical: 23.5 mCi Xe-133 gas by inhalation and 3.8 mCi Tc-99m MAA IV. Comparison: -CT chest without contrast dated 02/12/2024 at 1313 hours. -AP chest film dated 02/10/2024 at 1551 hours. Findings: The Xe-133 ventilation images demonstrate a mildly heterogeneousdistribution of activity on the initial breath and equilibrium phaseimages. There is mild patchy bilateral Xe-133 retention on the washoutphase images. The perfusion images demonstrate a mildly heterogeneousdistribution of activity bilaterally with no segmental defects. IMPRESSION: Low probability for acute pulmonary embolism. Referred By: Interpreted By: Shorty Ardon MD, 02/12/2024 2:13 PM us Maria Isabel Owens NP NUC MED Final Resul t * LACTIC ACID W REFLEX (SEPSIS) (02/10/2024 7:53 PM MAT SEWER) Only the most recent of2 resultswithin the time period is included. LACTIC ACID VENOUS 1.4 0.4 - 2.0 MMOL/L 02/10/2024 8:29 PM MAT SEWER [facility] 02/10/2024 7:53 PM MAT SEWER us Danish Menjivar MD LABORATORY Final Result Performing Organization Address [facility] Co de Phone Number [facility] [address] [place] [address], [place] [phone] * BLOOD CULTURE #1 (02/10/2024 4:11 PM MAT SEWER) SPEC DESCRIPTION BLOOD 02/10/2024 3:47 PM MAT SEWER [facility] SPECIAL REQUESTS NO SPECIAL REQUEST 02/10/2024 3:47 PM MAT SEWER [facility] CULTURE RESULT NO GROWTH 5 DAYS 02/15/2024 8:22 PM MAT SEWER [facility] BLOOD SPECIMEN OBTAINED FOR BLOOD CULTURE / Unknown 02/10/2024 4:11 PM MAT SEWER 02/10/2024 4:12 PM MAT SEWER us Danish Menjivar MD MICROBIOLOGY - GENERAL ORDER KAREN Final Result Performing Organization Address [facility] Co de Phone Number [facility] [address] [place] [address], [place] [phone] * CT THOR SPINE WO CON (12/22/2023 1:32 PM CDT) Anatomical Region Laterality Modality Spine Computed Tomogra phy 12/22/2023 2:16 PM CDT Impressions 12/22/2023 2:19 PM CDT Impression: No evidence of acute fracture or traumatic malalignment of the thoracic spine. Ordered By: MARIA ISABEL OWENS Interpreted By: Marlys Jovel MD, 12/22/2023 2:16 PM Narrative 12/22/2023 2:19 PM CDT [facility] [address] [place], [place] [address] CT of the THORACIC SPINE without contrast. History: Back pain after falling Comparison: None. Technique: Images of the thoracic spine were obtained without the administration of intravenous contrast. Coronal and sagittal reformats were constructed. ??A dose lowering technique was used for this procedure, which may include, but is not limited to, dose reduction techniques, automated exposure control, the use of a iterative reconstruction, and ALARA (as low as reasonably achievable)/image gently techniques. Findings: There are 12 rib-bearing thoracic vertebral bodies. Vertebral body heights are well maintained. Facet joint alignment is preserved bilaterally. There is no evidence of acute fracture or traumatic malalignment. Multilevel facet hypertrophy which appears to slightly narrow the spinal canal at T10-11 and to a lesser extent at T3-4 and T4-5. There is no severe bony neural foraminal or spinal canal narrowing at any level. Limited noncontrast images of the visualized soft tissues reveal no acute appearing abnormality. Procedure Note Marlys Jovel MD - 12/22/[address] [address] [address] of the THORACIC SPINE without contrast. History: Back pain after falling Comparison: None. Technique: Images of the thoracic spine were obtained without theadministration of intravenous contrast. Coronal and sagittal reformatswere constructed. A dose lowering technique was used for this procedure,which may include, but is not limited to, dose reduction techniques,automated exposure control, the use of a iterative reconstruction, andALARA (as low as reasonably achievable)/image gently techniques. Findings: There are 12 rib-bearing thoracic vertebral bodies. Vertebral body heightsare well maintained. Facet joint alignment is preserved bilaterally. Thereis no evidence of acute fracture or traumatic malalignment. Multilevelfacet hypertrophy which appears to slightly narrow the spinal canal [id number] and to a lesser extent at T3-4 and T4-5. There is no severe bonyneural foraminal or spinal canal narrowing at any level. Limitednoncontrast images of the visualized soft tissues reveal no acuteappearing abnormality. Impression: No evidence of acute fracture or traumatic malalignment of the thoracicspine. Ordered By: MARIA ISABEL OWENS Interpreted By: Marlys Jovel MD, 12/22/2023 2:16 PM us Maria Isabel Owens [employer] OBSERVER CT Final Resul t * CT LUMB SPINE WO CON (12/22/2023 1:32 PM CDT) Anatomical Region Laterality Modality Spine Computed Tomogra phy 12/22/2023 2:20 PM CDT Impressions 12/22/2023 2:30 PM CDT Impression: 1. No evidence of acute fracture or traumatic malalignment of the lumbar spine. 2. Multilevel spondylosis as described above. Ordered By: MARIA ISABEL OWENS Interpreted By: Marlys Jovel MD, 12/22/2023 2:20 PM Narrative 12/22/2023 2:30 PM CDT [address] [address] [address] of the LUMBAR SPINE without contrast. 12/22/2023 1:27 PM History: Back pain after falling. Comparison: X-ray lumbar spine 02/12/2019 Technique: Images of the lumbar spine were obtained without the administration of intravenous contrast. Coronal and sagittal reformats were constructed. ??A dose lowering technique was used for this procedure, which may include, but is not limited to, dose reduction techniques, automated exposure control, the use of a iterative reconstruction, and ALARA (as low as reasonably achievable)/image gently techniques. Findings: There are 5 lumbar type vertebral bodies. Vertebral body heights and intervertebral disc spaces are well-maintained. There is normal lumbar vertebral alignment. No evidence of acute fracture or traumatic malalignment. Facet joint alignment is preserved bilaterally. There is multilevel facet hypertrophy greatest in the lower lumbar spine. Mild endplate osteophyte formation and ligamentum flavum thickening. Mild disc bulges at L3-4, L4-5, and L5-S1. The spinal canal appears congenitally narrow. These degenerative findings result in at least mild spinal canal narrowing at L2-3 and L4-5 with mild to moderate narrowing at L3-4. Mild to moderate neural foraminal narrowing on the right at L4-5 with mild narrowing bilaterally at L5- S1. Limited noncontrast images of the visualized soft tissues reveal no acute appearing abnormality. Procedure Note Marlys Jovel MD - 12/22/[address] [address] [address] of the LUMBAR SPINE without contrast. 12/22/2023 1:27 PM History: Back pain after falling. Comparison: X-ray lumbar spine 02/12/2019 Technique: Images of the lumbar spine were obtained without theadministration of intravenous contrast. Coronal and sagittal reformatswere constructed. A dose lowering technique was used for this procedure,which may include, but is not limited to, dose reduction techniques,automated exposure control, the use of a iterative reconstruction, andALARA (as low as reasonably achievable)/image gently techniques. Findings: There are 5 lumbar type vertebral bodies. Vertebral body heights andintervertebral disc spaces are well-maintained. There is normal lumbarvertebral alignment. No evidence of acute fracture or traumaticmalalignment. Facet joint alignment is preserved bilaterally. There ismultilevel facet hypertrophy greatest in the lower lumbar spine. Mildendplate osteophyte formation and ligamentum flavum thickening. Mild discbulges at L3-4, L4-5, and L5-S1. The spinal canal appears congenitallynarrow. These degenerative findings result in at least mild spinal canalnarrowing at L2-3 and L4-5 with mild to moderate narrowing at L3-4. Mildto moderate neural foraminal narrowing on the right at L4-5 with mildnarrowing bilaterally at L5-S1. Limited noncontrast images of thevisualized soft tissues reveal no acute appearing abnormality. Impression: 1. No evidence of acute fracture or traumatic malalignment of the lumbarspine. 2. Multilevel spondylosis as described above. Ordered By: MARIA ISABEL OWENS Interpreted By: Marlys Jovel MD, 12/22/2023 2:20 PM us Maria Isabel Owens [employer] OBSERVER CT Final Resul t * XR KNEE JULITO 3V (12/22/2023 1:05 PM CDT) Anatomical Region Laterality Modality Knee Radiographic Katy ging 12/22/2023 1:15 PM CDT Impressions 12/22/2023 1:17 PM CDT IMPRESSION: No acute osseous abnormality identified. Referred By: ?? Interpreted By: Gabriel Alberto MD, 12/22/2023 1:15 PM Narrative 12/22/2023 1:17 PM [address] [address] EXAMINATION: XR KNEE JULITO 3V HISTORY: BILATERAL KNEE PAIN AFTER FALL COMPARISON: No comparison. TECHNIQUE: 3 views of the bilateral knees. FINDINGS: No fracture or dislocation is seen bilaterally. Joint spaces are normal bilaterally. No destructive bone lesions. No joint effusion or soft tissue abnormality. Procedure Note Gabriel Alberto MD - 12/22/[address] [address] EXAMINATION: XR KNEE JULITO 3V HISTORY: BILATERAL KNEE PAIN AFTER FALL COMPARISON: No comparison. TECHNIQUE: 3 views of the bilateral knees. FINDINGS: No fracture or dislocation is seen bilaterally. Joint spaces are normalbilaterally. No destructive bone lesions. No joint effusion or soft tissueabnormality. IMPRESSION: No acute osseous abnormality identified. Referred By: Interpreted By: Gabriel Alberto MD, 12/22/2023 1:15 PM Maria Isabel Owens NP GENERAL IMAGING Final Resul t * XR PELVIS 1 OR 2 VIEWS (12/22/2023 1:05 PM CDT) Anatomical Region Laterality Modality Pelvis Radiographic Katy ging 12/22/2023 1:15 PM CDT Impressions 12/22/2023 1:18 PM CDT IMPRESSION: No radiographic evidence is seen to suggest acute fracture or malalignment of the bones of the pelvis Referred By: ?? Interpreted By: Brown Marina DO, 12/22/2023 1:15 PM Narrative 12/22/2023 1:18 PM CDT [facility] [address] [place], [place] [address] Examination: XR PELVIS 1 OR 2 VIEWS Exam time: 12/22/2023 12:56 PM Clinical history: Pain after fall today. Comparison: None. Technique: AP views of the pelvis with the hips in neutral and frog-leg lateral positioning. Findings: The lower sacrum and coccyx are partially obscured due to overlying bowel contents. ??No evidence is seen to suggest disruption of the pelvic brim. ??No radiographic evidence is seen to suggest acute fracture or malalignment of the bones of the pelvis. ??Small calcified phleboliths are noted within the pelvis. Procedure Note Brown Marina DO - 12/22/[address] [address] Examination: XR PELVIS 1 OR 2 VIEWS Exam time: 12/22/2023 12:56 PM Clinical history: Pain after fall today. Comparison: None. Technique: AP views of the pelvis with the hips in neutral and frog-leglateral positioning. Findings: The lower sacrum and coccyx are partially obscured due to overlying bowelcontents. No evidence is seen to suggest disruption of the pelvic brim.No radiographic evidence is seen to suggest acute fracture or malalignmentof the bones of the pelvis. Small calcified phleboliths are noted withinthe pelvis. IMPRESSION: No radiographic evidence is seen to suggest acute fracture or malalignmentof the bones of the pelvis Referred By: Interpreted By: Brown Marina DO, 12/22/2023 1:15 PM Maria Isabel Owens NP GENERAL IMAGING Final Resul t * HUMAN PAPILLOMAVIRUS, HIGH-RISK TYPES (06/20/2022 12:00 PM CDT) SPECIMEN CERVICAL/END OCERVICAL 06/22/2022 8:18 AM CDT [facility] HPV DNA HIGH RISK NEGATIVE NEGATIVE 06/22/2022 7:35 PM CDT [facility] Comment:SEE CYTOLOGY REPORT 06/20/2022 12:0 0 PM CDT us Sekuo Bob MD PATHOLOGY/CYTOLOGY ORDER KAREN Final Result [facility] [address] [place] [address], * Cytopath Cerv/Vag Thin Layer (06/20/2022 7:46 AM CDT) THIN PREP PAP ? [facility] ?[address] ?[place] [address] ? Department of Pathology ? Pathology Report ? CERVICAL/VAGINAL PAP SMEAR REPORT Name: MISHA BROWNE ? Age: 7 1980 (Age: 41) ?Location: [facility] Sex: F ?Collected Date: 06/20/2022 Hospital #: [id number] ?Date Received: 06/22/2022 Date Reported: 06/24/2022 Provider: SEKOU BOB MD ?JUNIOR DUCKWORTH MD ?SHERRY RAMIREZ III, MD INTERPRETATION CERVICAL/ENDOCERVI GERARDO: ? SATISFACTORY FOR EVALUATION. ENDOCERVICAL/TRANS FORMATION ZONE COMPONENT ABSENT. ? NEGATIVE FOR INTRAEPITHELIAL LESION OR MALIGNANCY. NEGATIVE FOR HIGH RISK HPV. The FDA approved Aptima HPV assay is an in vitro nucleic acid amplification test for the qualitative detection of E6/E7 viral messenger RNA (mRNA) from 14 high-risk types of human papillomavirus (HPV) in cervical specimens. ??The high-risk HPV types detected by the assay include: 16,18,31,33,35,39, 45,51,52,56,58,59, 66, and 68. 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 UNKNOWN Menstrual Status: Irregular SPECIMEN SUBMITTED CERVICAL/ENDOCERVI GERARDO ?Specimen Received:1 Thin Prep Vial, Image Assisted Pap (SMD) ? Please note: The Pap smear is not a diagnostic test. ??It is a screening test. ??Negative results on combined screening (Pap test and HPV-DNA) have a high negative predictive value (99.1-100 percent) for cervical cancer. ??The pap test is not effective in detecting cervical adenocarcinoma. [facility] 06/20/2022 7:46 AM CDT 06/22/2022 7:46 AM CDT Comment:CERVICAL/ENDOCERVICA L us Sekou Bob MD PATHOLOGY/CYTOLOGY ORDER KAREN Final Result [facility] [address] [place] [address], from Last 3 Months or Most Recently Relevant to Health Maintenance Insurance C/O PROVIDER [employer] [place] [id number] Advance Directives * Full Code (Latest Code Status on File) Date Activated Date Inactivated Comments 02/20/2024 1:27 AM 02/20/2024 11:44 AM * Full Code Date Activated Date Inactivated Comments 06/21/2017 12:22 AM 06/21/2017 8:16 PM Care Teams Glass Vial Filler Relationship Specialty Start Date End Date Sherry Ramirez III, MD [address] [facility] [address] [place] [address] PCP - General FAMILY PRACTICE 06/20/17
--- OUTSIDE RECORDS SUMMARY | 2024-03-20 11:50 | XMS_ITS | Encounter Summary ---
Author Organization [facility] Address [address] [place] [address]. [place], [place] [id number] [place] [id number] Care Team Providers Care Top Cutter Name Role Phone Ashley ZUNIGA MD, Hermes Perez Primary Care Provid er Reason for Visit * Reason Comments Shortness Of Breath Encounter Details Date Type Department Care Team (Late st Contact Info) Description 02/16/2024 7:49 PM PRACTICAL NURSING INSTRUCTOR - 02/16/2024 11:28 PM PRACTICAL NURSING INSTRUCTOR Emergency [facility] Emergency [address] [place] [address] Tejas Weiss, [address] [id number] Shortness Of Breath Discharge Disposition: Home or [...] on file Legal Sex Female 9:15 PM PRACTICAL NURSING INSTRUCTOR Gender Identity Not on file Sexual Orientation Not on file documented as of this encounter Last Filed Vital Signs Vital Sign Reading Time Taken Comments Blood Pressure 139/80 02/16/2024 7:34 PM PRACTICAL NURSING INSTRUCTOR Pulse 78 02/16/2024 11:00 PM PRACTICAL NURSING INSTRUCTOR Temperature 36.8 ??C (98.3 ??F) 02/16/2024 7:34 PM CS T Respiratory Rate 18 02/16/2024 11:0 0 PM PRACTICAL NURSING INSTRUCTOR Oxygen Saturation 95% 02/16/2024 11: 00 PM PRACTICAL NURSING INSTRUCTOR Inhaled Oxygen Concentration - - Weight 90.2 kg (198 lb 13.7 oz) 02/16/2024 7:34 PM PRACTICAL NURSING INSTRUCTOR Height 157.5 cm (5' 2 ) 02/16/2024 7:34 PM PRACTICAL NURSING INSTRUCTOR Body Mass Index 36.37 02/16/2024 7:34 PM PRACTICAL NURSING INSTRUCTOR documented in this encounter Discharge Instructions * Discharge Instructions* Tejas Weiss DNP - 02/16/2024 10:54 PM PRACTICAL NURSING INSTRUCTOR As discussed, please follow up with your provider tomorrow to determine appropriate pain management. Continue taking your steroids, antibiotics, and albuterol as needed. TICAL NURSING INSTRUCTOR TICAL NURSING INSTRUCTOR * Attachments The following attachments cannot be sent through Care Everywhere. * Acute Bronchitis Discharge Instructions, Adult ([place] Islander) documented in this encounter Medications at Time [...] tablet (81 mg total) by mouth daily. 4 baclofen (LIORESAL) 10 MG tablet Take 1 [...] hours as needed. 360 mL 02/14/2024 4 oxyCODONE-acetam inophen (PERCOCET) 5-325 MG tabletIndication s:Acute Pain < 3 Day Supply Take 1 tablet by mouth every 6 (six) hours as needed for Pain. Indications: Acute Pain < 3 Day Supply 10 tablet 02/16/2024 4 venlafaxine (EFFEXOR) 37.5 MG tablet Take 1 tablet (37.5 mg total) by mouth. 04/21/2022 4 documented as of this encounter ED Notes * Tejas Weiss, NAHOMI - 02/16/2024 8:05 PM CST Chief Complaint Chief Complaint Patient presents with Shortness Of Breath History of Present Illness 8:05 PM Elsa A Browne is a 43-year-old patient presenting to the emergency department for evaluation ofshortness of breath. 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 She states she has been evaluated numerous times for this illness (this is her 4th visit in one week), but feels she is not getting better. She states she is on prednisone daily for her transplants, but is currently also taking doxycycline and amoxicillin. She is also using breathing treatments daily but states she is not feeling better. She states she is having full body aches, primarily inher back. She also feels like her chest/throat are raw. She has been taking tylenol with no relief.She denies fever but reports worsening chills, dyspnea, and wheezing. Today, she states she tried to go out shopping but her symptoms were too severe, so she went home. She states she has not been taking in much oral intake but does not feel hydrated, stating her ankles are swollen. Denies chest pain but feels it is tight from coughing. History provided by: Patient translator/interpreter used: No Medical History ALLERGIES: Review of patient's allergies [...] Start Date End Date Taking? Authorizing Provider oxyCODONE-acetaminophen (PERCOCET) 5-325 MG tablet Take 1 tablet by mouth every 6 (six) hours as needed for Pain. Indications: Acute Pain < 3 Day Supply 02/16/24 Yes Tejas Weiss DNP albuterol sulfate HFA 108 (90 Base) MCG/ACT [...] Review of Systems Review of Systems Constitutional: Positive for chills and fatigue. Negative for fever. HENT: Positive for congestion and sore throat. Negative for trouble swallowing. Respiratory: Positive for chest tightness, shortness of breath and wheezing. Cardiovascular: Negative for chest pain and palpitations. Gastrointestinal: Negative for abdominal pain, diarrhea and vomiting. Musculoskeletal: Positive for myalgias. Neurological: Positive for light-headedness and headaches. Negative for dizziness. Physical Exam Filed Vitals: 02/16/24 1934 02/16/24 2250 02/16/24 2300 BP: 139/80 Pulse: 83 78 Resp: 24 18 Temp: 98.3 ??F (36.8 ??C) TempSrc: Oral SpO2: 98% 96% 95% Weight: 90.2 kg (198 lb 13.7 oz) Height: 1.575 m (5' 2 ) Physical Exam Vitals and nursing note reviewed. Constitutional: General: She is not in acute distress. Appearance: Normal appearance. She is ill-appearing. She is not toxic-appearing or diaphoretic. HENT: Head: Normocephalic and atraumatic. Right Ear: Tympanic membrane, ear canal and external ear normal. Left Ear: Tympanic membrane, ear canal and external ear normal. Nose: Nose normal. Mouth/Throat: Mouth: Mucous membranes are moist. Pharynx: Oropharynx is clear. Posterior oropharyngeal erythema present. No oropharyngeal exudate. Eyes: Extraocular Movements: Extraocular movements intact. Conjunctiva/sclera: Conjunctivae normal. Pupils: Pupils are equal, round, and reactive to light. Cardiovascular: Rate and Rhythm: Normal rate and regular rhythm. Pulses: Normal pulses. Heart sounds: Normal heart sounds. Pulmonary: Effort: Pulmonary effort is normal. No tachypnea, accessory muscle usage or respiratory distress. Breath sounds: Wheezing present. No decreased breath sounds. Comments: Expiratory wheezing in all lobes Abdominal: Palpations: Abdomen is soft. Tenderness: There is no abdominal tenderness. There is no guarding. Musculoskeletal: Cervical back: Neck supple. Skin: General: Skin is warm and dry. Coloration: Skin is not pale. Neurological: General: No focal deficit present. Mental Status: She is alert. Diagnostic Studies / Procedures ELECTROCARDIOGRAMS: No results found for this visit on 02/16/24. LABORATORY STUDIES: Results for orders placed or performed during the hospital encounter of 02/16/24 CBC W/DIFF AUTOMATED Result Value Ref Range WBC 7.19 4.00 - 10.80 x10'3/uL RBC 3.82 (L) 4.10 - 5.40 x10'6/uL HGB 13.6 12.0 - 16.0 G/DL HCT 40.0 36.0 - 47.0 % MCV 104.7 (H) 78.0 - 100.0 FL MCH 35.6 (H) 27.0 - 31.0 PG MCHC 34.0 33.0 - 36.0 G/DL RDW 13.6 11.5 - 14.5 % PLT 117 (L) 150 - 350 x10'3/uL MPV 11.2 (H) 7.4 - 10.4 FL DIFFERENTIAL TYPE AUTOMATED DIFFERENTIAL SEG NEUTROPHILS 65.8 % LYMPHOCYTES 23.5 % MONOCYTES 6.4 % EOSINOPHILS 2.5 % BASOPHILS 0.3 % IMMATURE GRANS % 1.5 % ABS. NEUTROPHILS 4.73 1.60 - 8.30 x10'3/uL ABS. LYMPHOCYTES 1.69 0.80 - 4.70 x10'3/uL ABS. MONOCYTES 0.46 0.00 - 1.50 x10'3/uL ABS. EOSINOPHILS 0.18 0.00 - 0.40 x10'3/uL ABS. BASOPHILS 0.02 0.00 - 0.20 x10'3/uL ABS. IMMATURE GRANULOCYTES 0.11 (H) 0.00 - 0.03 x10'3/uL ABS. NUCLEATED RBC'S 0.00 0.00 - 0.01 x10'3/uL NRBC % 0.0 % COMPREHENSIVE METABOLIC PANEL Result Value Ref Range SODIUM S/P/B 140 136 - 145 MMOL/L POTASSIUM S/P/B 4.7 3.5 - 5.1 MMOL/L CHLORIDE S/P/B 114 97 - 115 MMOL/L CO2 20.3 (L) 21.0 - 32.0 MMOL/L GLUCOSE 93 74 - 106 MG/DL BUN 22 (H) 7 - 18 MG/DL CREATININE S/P/B 1.55 (H) 0.55 - 1.02 MG/DL CALCIUM S/P/B 9.1 8.5 - 10.1 MG/DL BILIRUBIN TOTAL S/P/B 0.7 0.2 - 1.0 MG/DL ALKALINE PHOSPHATASE S/P/B 307 (H) 37 - 98 U/L AST 32 15 - 37 U/L ALT 50 13 - 56 U/L TOTAL PROTEIN S/P/B 6.9 6.4 - 8.2 G/DL ALBUMIN S/P/B 3.3 (L) 3.4 - 5.0 G/DL ANION GAP 5.7 2.0 - 10.0 MMOL/L OSMOLALITY (CALC) 293 MOSM/KG GFR ESTIMATE 43 (L) >90 ML/MIN/1.73 M2 GFR NOTES GFR REFERENCES: HETEROPHILE ANTIBODIES,SCREEN Result Value Ref Range MONO TEST NEGATIVE NEGATIVE BIOFIRE PCR UPPER RESPIRATORY PROFILE (RESPIRATORY PCR PANEL 2) Specimen: NASOPHARYNGEAL SWAB Result Value Ref Range ADENOVIRUS PCR (RESP) NOT DETECTED NOT DETECTED CORONAVIRUS 229E PCR (RESP) NOT DETECTED NOT DETECTED CORONAVIRUS HKU1 PCR (RESP) NOT DETECTED NOT DETECTED CORONAVIRUS NL63 PCR (RESP) NOT DETECTED NOT DETECTED CORONAVIRUS OC43 PCR (RESP) NOT DETECTED NOT DETECTED METAPNEUMOVIRUS PCR (RESP) NOT DETECTED NOT DETECTED RHINOVIRUS/ENTEROVIRUS PCR (RESP) DETECTED (AA) NOT DETECTED INFLUENZA A PCR (RESP) NOT DETECTED NOT DETECTED INFLUENZA B PCR (RESP) NOT DETECTED NOT DETECTED PARAINFLUENZA 1 PCR (RESP) NOT DETECTED NOT DETECTED PARAINFLUENZA 2 PCR (RESP) NOT DETECTED NOT DETECTED PARAINFLUENZA 3 PCR (RESP) NOT DETECTED NOT DETECTED PARAINFLUENZA 4 PCR (RESP) NOT DETECTED NOT DETECTED RSV PCR (RESP) NOT DETECTED NOT DETECTED B PARAPERTUSIS PCR (RESP) NOT DETECTED NOT DETECTED BORDETELLA PERTUSSIS PCR (RESP) NOT DETECTED NOT DETECTED CHLAMYDOPHILA PNEUMONIAE PCR (RESP) NOT DETECTED NOT DETECTED MYCOPLASMA PNEUMONIAE PCR (RESP) NOT DETECTED NOT DETECTED CORONAVIRUS SARS COV 2 PCR (RESP) NOT DETECTED NOT DETECTED STREP A RAPID Specimen: THROAT Result Value Ref Range SPECIMEN SOURCE THROAT RAPID STREP TEST NEGATIVE NEGATIVE IMAGING STUDIES XR CHEST PORTABLE Final Result by User, [id number] (02/15 2200) [facility] [address] [place], [place] [address] EXAM: CHEST RADIOGRAPH Exam Date: 02/16/2024 7:49 [...] versus summation artifact. Trace osseous degenerative changes. IMPRESSION: No significant interval change, as detailed above. The attending radiologist has reviewed the image(s) and agrees with the content of this report. Ordered By: TEJAS WEISS Interpreted By: So Patel MD, 02/16/2024 9:06 PM ED Course / Medical Decision Making Medical Decision Making EMERGENCY DEPARTMENT MEDICAL DECISION MAKING: Differential Diagnosis: including but not limited to sepsis, bronchitis, pneumonia, respiratory failure, unspecified viral/bacterial infection Chronic Illnesses Impacting Care: Liver and Kidney transplant x 2 Social Determinates of Health Impacting Care: Patient currently sees [facility] for transplant services, but surgery was done at [place] Discussion of Management with Other Providers: Offered to speak with patient's specialist. She declined and said she will call them tomorrow. Diagnostic Tests Considered (even if not performed): yes - XR repeated. CT and VQ already done Consideration of Admission: yes - not indicated Prescription Medication Considered (even if not prescribed): yes Amount and/or Complexity of Data Reviewed External Data Reviewed: notes. Labs: ordered. Decision-making details documented in ED Course. Radiology: ordered. Decision-making details documented in ED Course. Risk OTC drugs. Prescription drug management. Decision regarding hospitalization. ED Course as of 02/16/242339Feb 16, [id number] History and physical obtained at this time. Pt here for worsening symptoms, with recent diagnosis of bronchitis. Reviewed chart including labs and CXR. Will add biofire, strep, and mono test, aswell as repeat CXR to rule out worsening condition. Given transplant history, will give dilaudid for pain management and avoid IVF until labs are back. She is still having expiratory wheezing in al fi elds, will give Duoneb. She was also observed and had a VQ scan, due to an elevated D-Dimer. She has had several CXR and a CT w/o of the chest. She is currently on 2 antibiotics and take daily steroids. [MS] 2010 SIRS not met at this time. No indication to add lactic or sepsis protocol. [MS] 2112 Staff have been unable to get IV access. Will change pain meds to IM. Lab has been called to attempt. [MS] 2113 RAPID STREP TEST: NEGATIVE [MS] 2118 RHINOVIRUS/ENTEROVIRUS PCR (RESP)(!!): DETECTED [MS] 2220 MONO TEST: NEGATIVE [MS] 2220 CBC W/DIFF AUTOMATED(!) No leukocytosis [MS] 222 COMPREHENSIVE METABOLIC PANEL(!) Baseline for patient, no acute concern. [MS] 222 Pain Score: 10 Additional dilaudid ordered, IV [MS] 222 XR CHEST PORTABLE IMPRESSION: No significant interval change, as detailed above. [MS] 2255 Re-evaluated at this time. Discussed workup findings and necessary follow up. Will give additional dose of pain medication while in the department and have her follow up with her specialist. Workup reassuring for no worsening infection. Labs and imaging are stable. Plan to discharge after painre- evaluation. [MS] 2316 Walking pulse ox 96%, no difficulty. Patient appropriate for discharge at this time. Pain improved. [MS] ED Course User Index [MS] Tejas Weiss, DNP Clinical Impression Acute bronchitis due to Rhinovirus (Primary) Viral syndrome History of transplantation, liver (CMS/HCC HHS/HCC) History of kidney transplant (HHS/HCC) Acute bilateral low back pain without sciatica Disposition: Discharge Tejas Weiss DNP 02/16/240 Cosigned by Prasad Metcalf MD at 02/22/2024 12:48 AM PRACTICAL NURSING INSTRUCTOR TICAL NURSING INSTRUCTOR TICAL NURSING INSTRUCTOR * Irving Leonardo RN - 02/16/2024 7:26 PM CST Patient arrives via pov with complaints of shortness of breath. Patient was diagnosed with pneumonia and prescribed neb treatments, doxycyline, and amoxicillin. Last neb treatment around 1600 today. Patient endorses rib/back pain. TICAL NURSING INSTRUCTOR TICAL NURSING INSTRUCTOR documented in this encounter Plan of Treatment Not on file documented as of this encounter Procedures Procedure Name Priority Date/Time Associated Diagnosis Comments COMPREHENSIVE METABOLIC PANEL STAT 02/16/2024 9:52 PM PRACTICAL NURSING INSTRUCTOR HETEROPHILE ANTIBODIES,SCREEN STAT 02/16/2024 9:52 PM PRACTICAL NURSING INSTRUCTOR CBC W/DIFF AUTOMATED STAT 02/16/2024 9:52 PM PRACTICAL NURSING INSTRUCTOR XR CHEST PORTABLE STAT 02/16/2024 8:4 6 PM PRACTICAL NURSING INSTRUCTOR RESPIRATORY PCR PANEL 2 Nurse Collected Priority 02/16/2024 8:11 PM PRACTICAL NURSING INSTRUCTOR STREP A RAPID Nurse Collected Priority 02/16/2024 8:11 PM PRACTICAL NURSING INSTRUCTOR documented in this encounter Results * HETEROPHILE ANTIBODIES,SCREEN (02/16/2024 9:52 PM PRACTICAL NURSING INSTRUCTOR) MONO TEST NEGATIVE NEGATIVE 02/16/2024 10:09 PM PRACTICAL NURSING INSTRUCTOR [facility] 02/16/2024 9:52 PM PRACTICAL NURSING INSTRUCTOR us Tejas Weiss DNP LABORATORY Final Resul t [facility] [address] [place] [address], [place] [phone] * (ABNORMAL) COMPREHENSIVE METABOLIC PANEL (02/16/2024 9:52 PM PRACTICAL NURSING INSTRUCTOR) SODIUM S/P/B 140 136 - 145 MMOL/L 02/16/2024 10:10 PM PRACTICAL NURSING INSTRUCTOR [facility] POTASSIUM S/P/B 4.7 3.5 - 5.1 MMOL/L 02/16/2024 10:[address] [facility] Comment:SLIGHT HEMOLYSIS, RE SULT MAY BE AFFECTED. CHLORIDE S/P/B 114 97 - 115 MMOL/L 02/16/2024 10:10 PM PRACTICAL NURSING INSTRUCTOR [facility] CO2 20.3(L) 21.0 - 32.0 MMOL/L 02/16/2024 10:10 PM PRACTICAL NURSING INSTRUCTOR [facility] GLUCOSE 93 74 - 106 MG/DL 02/16/2024 10:10 PM PRACTICAL NURSING INSTRUCTOR [facility] BUN 22(H) 7 - 18 MG/DL 02/16/2024 10:[address] [facility] CREATININE S/P/B 1.55(H) 0.55 - 1.02 MG/DL 02/16/2024 10:10 PM PRACTICAL NURSING INSTRUCTOR [facility] CALCIUM S/P/B 9.1 8.5 - 10.1 MG/DL 02/16/2024 10:10 PM PRACTICAL NURSING INSTRUCTOR [facility] BILIRUBIN TOTAL S/P/B 0.7 0.2 - 1.0 MG/DL 02/16/2024 10:10 PM PRACTICAL NURSING INSTRUCTOR [facility] ALKALINE PHOSPHATASE S/P/B 307(H) 37 - 98 U/L 02/16/2024 10:10 PM PRACTICAL NURSING INSTRUCTOR [facility] AST 32 15 - 37 U/L 02/16/2024 10:10 PM PRACTICAL NURSING INSTRUCTOR [facility] ALT 50 13 - 56 U/L 02/16/2024 10:10 PM PRACTICAL NURSING INSTRUCTOR [facility] TOTAL PROTEIN S/P/B 6.9 6.4 - 8.2 G/DL 02/16/2024 10:10 PM PRACTICAL NURSING INSTRUCTOR [facility] ALBUMIN S/P/B 3.3(L) 3.4 - 5.0 G/DL 02/16/2024 10:10 PM PRACTICAL NURSING INSTRUCTOR [facility] ANION GAP 5.7 2.0 - 10.0 MMOL/L 02/16/2024 10:[address] [facility] OSMOLALITY (CALC) 293 MOSM/KG 024 10:[address] [facility] Comment:REFERENCE RANGE NOT ESTABLISHED GFR ESTIMATE 43(L) >90 ML/MIN/1. 73 M2 02/16/2024 10:10 PM PRACTICAL NURSING INSTRUCTOR [facility] GFR NOTES GFR REFERENCE S: 02/16/2024 10:[address] [facility] Comment: THE ESTIMATED GFR IS [...] FAILURE: <15 ml/min/1.73 m2 02/16/2024 9:52 PM PRACTICAL NURSING INSTRUCTOR us Tejas Weiss DNP LABORATORY Final Resul t [facility] [address] [place] [address], [id number] * (ABNORMAL) CBC W/DIFF AUTOMATED (02/16/2024 9:52 PM PRACTICAL NURSING INSTRUCTOR) [facility] WBC 7.19 4.00 - 10.80 x10'3/uL 02/16/2024 9:56 PM PRACTICAL NURSING INSTRUCTOR [facility] RBC 3.82(L) 4.10 - 5.40 x10'6/uL 02/16/2024 9:56 PM PRACTICAL NURSING INSTRUCTOR [facility] HGB 13.6 12.0 - 16.0 G/DL 02/16/2024 9:[address] [facility] HCT 40.0 36.0 - 47.0 % 02/16/2024 9:[address] [facility] MCV 104.7(H) 78.0 - 100.0 FL 02/16/2024 9:[address] [facility] MCH 35.6(H) 27.0 - 31.0 PG 02/16/2024 9:[address] [facility] MCHC 34.0 33.0 - 36.0 G/DL 02/16/2024 9:[address] [facility] RDW 13.6 11.5 - 14.5 % 02/16/2024 9:[address] [facility] PLT 117(L) 150 - 350 x10'3/uL 02/16/2024 10:[address] [facility] MPV 11.2(H) 7.4 - 10.4 FL 02/16/2024 10:[address] [facility] DIFFERENTIAL TYPE AUTOMATED DIFFERENTIAL 02/16/2024 10:[address] [facility] SEG NEUTROPHILS 65.8 % 10:[address] [facility] LYMPHOCYTES 23.5 % 02/16/2024 10:[address] [facility] MONOCYTES 6.4 % 02/16/2024 10:[address] [facility] EOSINOPHILS 2.5 % 02/16/2024 10:[address] [facility] BASOPHILS 0.3 % 02/16/2024 10:33 PM PRACTICAL NURSING INSTRUCTOR [facility] IMMATURE GRANS % 1.5 % 02/16/20 10:33 PM PRACTICAL NURSING INSTRUCTOR [facility] ABS. NEUTROPHILS 4.73 1.60 - 8.30 x10'3/uL 02/16/2024 10:33 PM PRACTICAL NURSING INSTRUCTOR [facility] ABS. LYMPHOCYTES 1.69 0.80 - 4.70 x10'3/uL 02/16/2024 10:33 PM PRACTICAL NURSING INSTRUCTOR [facility] ABS. MONOCYTES 0.46 0.00 - 1.50 x10'3/uL 02/16/2024 10:33 PM PRACTICAL NURSING INSTRUCTOR [facility] ABS. EOSINOPHILS 0.18 0.00 - 0.40 x10'3/uL 02/16/2024 10:33 PM PRACTICAL NURSING INSTRUCTOR [facility] ABS. BASOPHILS 0.02 0.00 - 0.20 x10'3/uL 02/16/2024 10:33 PM PRACTICAL NURSING INSTRUCTOR [facility] ABS. IMMATURE GRANULOCYTES 0.11(H) 0.00 - 0.03 x10'3/uL 02/16/2024 10:33 PM PRACTICAL NURSING INSTRUCTOR [facility] ABS. NUCLEATED RBC'S 0.00 0.00 - 0.01 x10'3/uL 02/16/2024 10:33 PM PRACTICAL NURSING INSTRUCTOR [facility] NRBC % 0.0 % 02/16/2024 10:33 PM PRACTICAL NURSING INSTRUCTOR [facility] 02/16/2024 9:52 PM PRACTICAL NURSING INSTRUCTOR us Tejas Weiss DNP LABORATORY Final Resul t [facility] [address] [place] [address], [id number] * XR CHEST PORTABLE (02/16/2024 8:46 PM PRACTICAL NURSING INSTRUCTOR) Anatomical Region Laterality Modality Chest Radiographic Katy ging 02/16/2024 9:06 PM PRACTICAL NURSING INSTRUCTOR Impressions 02/16/2024 9:59 PM PRACTICAL NURSING INSTRUCTOR IMPRESSION: No significant interval change, as detailed above. The attending radiologist has reviewed the image(s) and agrees with the content of this report. Ordered By: TEJAS WEISS Interpreted By: So Patel MD, 02/16/2024 9:06 PM Narrative 02/16/2024 9:59 PM PRACTICAL NURSING INSTRUCTOR [address] [address] EXAM: CHEST RADIOGRAPH Exam Date: 02/16/2024 7:49 [...] Procedure Note Marisa Francisco MD - 02/16/[address] [address] EXAM: CHEST RADIOGRAPH Exam Date: 02/16/2024 7:49 [...] By: So Patel MD, 02/16/2024 9:06 PM Tejas Weiss [facility] GENERAL IMAGING Final Resul t * STREP A RAPID (02/16/2024 8:11 PM PRACTICAL NURSING INSTRUCTOR) SPECIMEN SOURCE THROAT 02/16/2024 8:11 PM PRACTICAL NURSING INSTRUCTOR [facility] RAPID STREP TEST NEGATIVE NEGATIVE 02/16/2024 8:33 PM PRACTICAL NURSING INSTRUCTOR [facility] Comment:NEGATIVE FOR GROUP A BETA STREP ANTIGEN STRUCTURE OF ANTERIOR PORTION OF NECK / Unknown 02/16/2024 8:11 PM PRACTICAL NURSING INSTRUCTOR Tejas Weiss [facility] MICROBIOLOGY - GENERAL ORDE RABLES Final Result [facility] [address] [place] [address], [id number] * (ABNORMAL) BIOFIRE PCR UPPER RESPIRATORY PROFILE (RESPIRATORY PCR PANEL 2) (02/16/2024 8:11 PM PRACTICAL NURSING INSTRUCTOR) ADENOVIRUS PCR (RESP) NOT DETECTED NOT DETECTED 02/16/2024 9:16 PM PRACTICAL NURSING INSTRUCTOR [facility] CORONAVIRUS 229E PCR (RESP) NOT DETECTED NOT DETECTED 02/16/2024 9:16 PM PRACTICAL NURSING INSTRUCTOR [facility] CORONAVIRUS HKU1 PCR (RESP) NOT DETECTED NOT DETECTED 02/16/2024 9:16 PM PRACTICAL NURSING INSTRUCTOR [facility] CORONAVIRUS NL63 PCR (RESP) NOT DETECTED NOT DETECTED 02/16/2024 9:[address] [facility] CORONAVIRUS OC43 PCR (RESP) NOT DETECTED NOT DETECTED 02/16/2024 9:[address] [facility] METAPNEUMOVIRUS PCR (RESP) NOT DETECTED NOT DETECTED 02/16/2024 9:[address] [facility] RHINOVIRUS/ENTEROV IRUS PCR (RESP) DETECTED(AA ) NOT DETECTED 02/16/2024 9:[address] [facility] Comment: RESULTS PHONED TO AND READ BACK BY: ANH [id number]) [facility]SON IN ED 02/16 2116 TLV INFLUENZA A PCR (RESP) NOT DETECTED NOT DETECTED 02/16/2024 9:[address] [facility] INFLUENZA B PCR (RESP) NOT DETECTED NOT DETECTED 02/16/2024 9:[address] [facility] PARAINFLUENZA 1 PCR (RESP) NOT DETECTED NOT DETECTED 02/16/2024 9:[address] [facility] PARAINFLUENZA 2 PCR (RESP) NOT DETECTED NOT DETECTED 02/16/2024 9:[address] [facility] PARAINFLUENZA 3 PCR (RESP) NOT DETECTED NOT DETECTED 02/16/2024 9:[address] [facility] PARAINFLUENZA 4 PCR (RESP) NOT DETECTED NOT DETECTED 02/16/2024 9:[address] [facility] RSV PCR (RESP) NOT DETECTED NOT DETECTED 02/16/2024 9:[address] [facility] B PARAPERTUSIS PCR (RESP) NOT DETECTED NOT DETECTED 02/16/2024 9:[address] [facility] BORDETELLA PERTUSSIS PCR (RESP) NOT DETECTED NOT DETECTED 02/16/2024 9:[address] [facility] CHLAMYDOPHILA PNEUMONIAE PCR (RESP) NOT DETECTED NOT DETECTED 02/16/2024 9:[address] [facility] MYCOPLASMA PNEUMONIAE PCR (RESP) NOT DETECTED NOT DETECTED 02/16/2024 9:16 PM PRACTICAL NURSING INSTRUCTOR [facility] CORONAVIRUS SARS COV 2 PCR (RESP) NOT DETECTED NOT DETECTED 02/16/2024 9:16 PM PRACTICAL NURSING INSTRUCTOR [facility] NASOPHARYNGEAL SWAB / Unknown 02/16/2024 8:11 PM PRACTICAL NURSING INSTRUCTOR Tejas Weiss DNP MICROBIOLOGY - GENERAL [place] Final Result [facility] [address] [place] [address], [place] [phone] [id number] documented in this encounter Visit Diagnoses Diagnosis Acute bronchitis due to Rhinovirus- Primary Acute bronchitis Viral syndrome Unspecified viral infection, in conditions classified elsewhere and of unspecified site History of transplantation, liver (CMS/HCC HHS/HCC) Liver replaced by transplant History of kidney transplant (HHS/HCC) Kidney replaced by transplant Acute bilateral low back pain without sciatica documented in this encounter Administered Medications Inactive Administered Medications - up to 3 most recent administrations Medication Order MAR Action Action Date Dose Rate Site albuterol (PROVENTIL) (2.5 MG/3ML) 0.083% nebulizer solution 2.5 mg 2.5 mg, Nebulization, Once, 1 dose, On Mon02/16/24 at 2300 Given 02/16/2024 11:11 PM PRACTICAL NURSING INSTRUCTOR 2.5 mg diphenhydrAMINE (BENADRYL) injection 25 mg 25 mg, Intravenous, Once, 1 dose, On Mon02/16/24 at 2200, For IV administration, give no faster than 25 mg/min. Given 02/16/2024 10:01 PM PRACTICAL NURSING INSTRUCTOR 25 mg diphenhydrAMINE (BENADRYL) injection 25 mg 25 mg, Intravenous, Once, 1 dose, On Mon02/16/24 at 2300, For IV administration, give no faster than 25 mg/min. Given 02/16/2024 10:58 PM PRACTICAL NURSING INSTRUCTOR 25 mg HYDROmorphone (DILAUDID) injection 0.5 mg 0.5 mg, Intramuscular, Every 1 hour PRN, Severe pain (Scale 8 - 10), 1 dose, Starting on Mon02/16/24 at 2112, Until Mon02/16/24 at 2124, Administer slowly over at least 2-3 minutes. Given 02/16/2024 9:24 PM PRACTICAL NURSING INSTRUCTOR 0.5 mg Left Deltoid HYDROmorphone (DILAUDID) injection 0.5 mg 0.5 mg, Intravenous, Once, 1 dose, On Mon02/16/24 at 2200, Administer slowly over at least 2-3 minutes. Given 02/16/2024 10:03 PM PRACTICAL NURSING INSTRUCTOR 0.5 mg ipratropium-albuterol (DUONEB) 0.5-2.5 (3) MG/3ML nebulizer solution 3 mL 3 mL, Nebulization, Once, 1 dose, On Mon02/16/24 at 2014 Given 02/16/2024 8:19 PM PRACTICAL NURSING INSTRUCTOR 3 mLs morphine injection 4 mg 4 mg, Intravenous, Once, 1 dose, On Mon02/16/24 at 2300 Given 02/16/2024 10:58 PM PRACTICAL NURSING INSTRUCTOR 4 mg normal saline 0.9 % flush 3-10 mL 3-10 mL, Intravenous, Every 8 hours, First dose on Mon02/16/24 at 2014, Until Discontinued normal saline 0.9 % flush 3-10 mL 3-10 mL, Intravenous, As needed, Line care, Starting on Mon02/16/24 at 2008, Until 02/17/24 at 0128 documented in this encounter Active and Recently Administered Medications Times are shown in PRACTICAL NURSING INSTRUCTOR. Scheduled Medication Order 02/14/2024 02/15/2024 02/16/2024 albuterol (PROVENTIL) (2.5 MG/3ML) 0.083% nebulizer solution 2.5 mg (COMPLETED) 2.5 mg, Nebulization, Once, 1 dose, On Mon02/16/24 at 2300 2311 (Given - Provid er: Doretha Jang, ERLINDA) diphenhydrAMINE (BENADRYL) injection 25 mg (COMPLETED) 25 mg, Intravenous, Once, 1 dose, On Mon02/16/24 at 2200, For IV administration, give no faster than 25 mg/min. 2200 (Given - Provid er: Anh Nicolas RN) diphenhydrAMINE (BENADRYL) injection 25 mg (COMPLETED) 25 mg, Intravenous, Once, 1 dose, On Mon02/16/24 at 2300, For IV administration, give no faster than 25 mg/min. 2258 (Given - Provid er: Anh Nicolas RN) HYDROmorphone (DILAUDID) injection 0.5 mg (COMPLETED) 0.5 mg, Intravenous, Once, 1 dose, On Mon02/16/24 at 2200, Administer slowly over at least 2-3 minutes. 2202 (Given - Provid er: Anh Nicolas RN) ipratropium-albuterol (DUONEB) 0.5-2.5 (3) MG/3ML nebulizer solution 3 mL (COMPLETED) 3 mL, Nebulization, Once, 1 dose, On Mon02/16/24 at 2014 2019 (Given - Provid er: Chi Hernandez, ERLINDA) morphine injection 4 mg (COMPLETED) 4 mg, Intravenous, Once, 1 dose, On Mon02/16/24 at 2300 2257 (Given - Provid er: Anh Nicolas RN) normal saline 0.9 % flush 3-10 mL 3-10 mL, Intravenous, Every 8 hours, First dose on Mon02/16/24 at 2014, Until Discontinued 2014 (Canceled Entry - Provider: Automatic Discharge Provider - Comment: Automatically canceled at discontinue of medication order) PRN Medication Order 02/14/2024 02/15/2024 02/16/2024 HYDROmorphone (DILAUDID) injection 0.5 mg (COMPLETED) 0.5 mg, Intramuscular, Every 1 hour PRN, Severe pain (Scale 8 - 10), 1 dose, Starting on Mon02/16/24 at 2113, Until Mon02/16/24 at 2123, Administer slowly over at least 2-3 minutes. 2123 (Given - Provid er: Lizbeth Vidal RN-LP) normal saline 0.9 % flush 3-10 mL 3-10 mL, Intravenous, As needed, Line care, Starting on Mon02/16/24 at 2009, Until 02/17/24 at 0128 documented in this encounter Additional Health Concerns Infection Onset Date Last Indicated Resolved Time COVID-19 Rule Out 02/16/2024 02/16/2024 02/16/2024 9:16 PM PRACTICAL NURSING INSTRUCTOR Rhinovirus 02/16/2024 02/16/2024 02/26/2024 12:3 2 AM PRACTICAL NURSING INSTRUCTOR documented as of this encounter Care Teams Top Cutter Relationship Specialty Start Date End Date Hermes Ramirez III, MD [address] [facility] [address] [place] [address] PCP - General FAMILY PRACTICE 06/20/17 documented as of this encounter
--- OUTSIDE RECORDS SUMMARY | 2024-03-20 11:50 | XMS_ITS | Encounter Summary ---
Author Organization [facility] Address [address] [place] [address]. [place], [place] [id number] [place] [id number] Care Team Providers Care Communications Systems Engineer Name Role Phone Ashley ZUNIGA MD, Hermes Perez Primary Care Provid er Encounter Details Date Type Department Care Team (Latest Contact Info) Description 02/14/2024 Travel Social History Tobacco Use Types Packs/Day Years Used Date Smoking Tobacco: Every Day Cigarettes 0.5 15 Smokeless Tobacco: Never Alcohol Use Standard Drinks/Week Comments No 0 (1 standard drink = 0.6 oz pur e alcohol) Comments No Sex and Gender Information Value Date Recorded Sex Assigned at Not on file Legal Sex Female 9:15 PM OBSTETRICS GYN Gender Identity Not on file Sexual Orientation Not on file documented as of this encounter Plan of Treatment Not on file documented as of this encounter Visit Diagnoses Not on filedocumented in this encounter Care Teams Communications Systems Engineer Relationship Specialty Start Date End Date Hermes Ramirez III, MD [address] [facility] [address] [place] [address] PCP - General FAMILY PRACTICE 06/20/17 documented as of this encounter
--- OUTSIDE RECORDS SUMMARY | 2024-03-20 11:50 | XMS_ITS | Continuity of Care Document ---
Author Organization [facility] Address [address] [place] [address] Care Team Providers Care Elementary Educator Name Role Phone Hermes Ramirez Primary Care Physician Encounter [facility] [id number] Date(s): 05/24/23 - 05/24/[address] [address]- [place] Discharge Disposition: Left Without Being Seen [...] 0 Refill(s), 05/30/23 5:53:00 PM CDT, [facility] [id number], 157, cm, 04/29/23 2:33:00 PRODUCTION GEAR CUTTER, Height, 81, kg, 04/29/23 2:41:00 PRODUCTION GEAR CUTTER, Weight Dosing Start Date: 05/23/23 Stop Date: 05/30/23 Status: Ordered amLODIPine 5 mg oral tablet 5 mg = 1 tab, Oral, Daily, # 30 tab, 11 Refill(s), Pharmacy: [place], [place], 157.48, cm, 01/04/23 15:03:00 CDT, Height/Length [...] # 60 cap, 11 Refill(s), Pharmacy: [place], [place], 157.48, cm, 01/04/23 15:03:00 CDT, Height/Length [...] 0 Refill(s), 06/02/23 5:10:00 AM CDT, Pharmacy: [place], [place], 157, cm, 04/29/23 2:33:00 PRODUCTION GEAR CUTTER, Height, 81, kg, 04/29/23 2:41:00 PRODUCTION GEAR CUTTER, Weight Dosing Start Date: 05/03/23 Stop Date: [...] Range]: 1 Temperature Oral [35.8-37.3 Deg C] 37.6 Deg C *HI* (05/24/23 1:10 PM) Peripheral Pulse Rate [60-100 bpm] 139 b pm *HI* (05/24/23 1:10 PM) Respiratory Rate [12-24 br/min] 20 br/mi n (05/24/23 1:10 PM) Blood Pressure [90-140/60-90 mmHg] 171/9 1mmHg *HI* (05/24/23 1:10 PM) Mean Arterial Pressure, Cuff [65-140 mmH g] 118 mmHg (05/24/23 1:10 PM) Weight 81.65 kg (05/24/23 1:10 PM) Weight Dosing 81.650 kg (05/24/23 1:10 PM) Height 157.48 cm (05/24/23 1:10 PM) Body Mass Index 32.92 kg/m2 (05/24/23 1:10 PM) Social History Social History Type Response Tobacco Current everyday tob acco user Tobacco Use:. 1 Sex 1Pt states that she smokes half a pack a day. Patient Care team information Care Team Personnel Name: Jessee Jones LINE HAUL DRIVER Position: Physician Member Role: Nurse Practitioner Address: Address: [address] [place] [address], [address] [place] [address] Name: Latoya Marquez LINE HAUL DRIVER Position: Physician Member Role: Nurse Practitioner Address: Address: [address] [place] [address] Name: Leonila Gonzalez LINE HAUL DRIVER Position: Physician Member Role: Nurse Practitioner Address: Address: [address] [place] [address] Name: Beth Brandt LINE HAUL DRIVER Position: Physician Member Role: Nurse Practitioner Address: Address: [address] [place] [address] Name: Hermes Ramirez MD Position: Physician Member Role: Informed Provider Address: Address: [address] [place] [address], [address] Name: Pillo Moe LINE HAUL DRIVER Position: Physician Member Role: Nurse Practitioner Address: Address: [address] [place] [address], [address] [place] Care Team Related Persons Name: STACIA JONES Address: Home [address] [id number] Name: ROBYN JAMA
--- OUTSIDE RECORDS SUMMARY | 2024-03-20 11:50 | XMS_ITS | Encounter Summary ---
Author Organization [facility] Address [address] [place] [address]. [place], [place] [id number] [place] [id number] Care Team Providers Care Parachute Panel Joiner Name Role Phone Ashley ZUNIGA MD, Hermes Perez Primary Care Provid er Reason for Referral * Imaging (Urgent) - New Request Specialty Diagnoses / Procedures Referred By Contac t Referred To Contact RADIOLOGY Procedures NM LUNG SCAN VENT+PERF Maria Isabel Owens NP [address] [place] [address] Phone: tel: fax: Referral ID Status Reason Start Date Expiration Date V isits Requested Visits Authorized [id number] New Request 02/12/2024 02/11/[address] OPERATOR * Imaging (Urgent) - New Request Specialty Diagnoses / Procedures Referred By Contac t Referred To Contact RADIOLOGY Procedures CT CHEST WO CON Maria Isabel Owens NP [address] [place] [address] Phone: tel: fax: Referral ID Status Reason Start Date Expiration Date V isits Requested Visits Authorized [id number] New Request 02/12/2024 02/11/[address] OPERATOR Reason for Visit * Reason Comments Headache Shortness Of Breath Generalized Body Aches Encounter Details Date Type Department Care Team ([facility] st Contact Info) Description 02/12/2024 12:14 PM RAILROAD CRANE OPERATOR - 02/12/2024 5:07 PM RAILROAD CRANE OPERATOR Emergency [facility] [address] [place] [address] Maria Isabel Owens NP [address] [place] [address] Headache; Shortness Of Breath ; Generalized Body [...] on file Legal Sex Female 9:15 PM RAILROAD CRANE OPERATOR Gender Identity Not on file Sexual Orientation Not on file documented as of this encounter Last Filed Vital Signs Vital Sign Reading Time Taken Comments Blood Pressure 118/73 02/12/2024 4:51 PM RAILROAD CRANE OPERATOR Pulse 101 02/12/2024 4:51 PM RAILROAD CRANE OPERATOR Temperature 36.6 ??C (97.8 ??F) 02/12/2024 12:[address] Respiratory Rate 23 02/12/2024 4:51 PM RAILROAD CRANE OPERATOR Oxygen Saturation 91% 02/12/2024 4:51 PM RAILROAD CRANE OPERATOR Inhaled Oxygen Concentration - - Weight 91.7 kg (202 lb 2.6 oz) 02/12/2024 12:00 PM RAILROAD CRANE OPERATOR Height 157.5 cm (5' 2 ) 02/12/2024 12:00 PM RAILROAD CRANE OPERATOR Body Mass Index 36.98 02/12/2024 12:00 PM RAILROAD CRANE OPERATOR documented in this encounter Medications at Time [...] daily for 10 days. 20 tablet 02/12/2024 4 doxycycline hyclate (VIBRAMYCIN) 100 MG capsule Take 1 capsule (100 mg total) by mouth 2 (two) times daily for 10 days. 20 capsule 02/12/2024 4 aspirin 81 MG chewable tablet Chew 1 tablet (81 mg total) by mouth daily. 4 baclofen (LIORESAL) 10 MG tablet Take 1 tablet (10 mg total) by mouth 3 (three) times daily. 15 tablet 07/22/2023 4 cycloSPORINE modified (NEORAL) 100 MG capsule Take 175 mg by mouth 2 (two) times daily. 4 enoxaparin (LOVENOX) 100 mg/mL syringe Inject 1 mL (100 mg total) into the skin daily. 10 mL 02/10/2024 4 venlafaxine (EFFEXOR) 37.5 MG tablet Take 1 tablet (37.5 mg total) by mouth. 04/21/2022 4 documented as of this encounter ED Notes * Silvina Jasso RN - 02/12/2024 12:02 PM CST Patient arrives ambulatory to triage from home c/o headache 10/27, generalized body aches and SOB. Patient states she was dx with rhinovirus on Monday. Patient denies hx asthma. ROAD CRANE OPERATOR documented in this encounter Plan of Treatment Not on file documented as of this encounter Procedures Procedure Name Priority Date/Time Associated Diagnosis Comments ECG 12-LEAD STAT 02/12/2024 3:41 PM RAILROAD CRANE OPERATOR PRO-BRAIN NATRIURETIC PEPTIDE STAT 02/12/2024 2:53 PM RAILROAD CRANE OPERATOR COMPREHENSIVE METABOLIC PANEL STAT 02/12/2024 2:53 PM RAILROAD CRANE OPERATOR LACTIC ACID TIMED 02/12/2024 2:53 PM RAILROAD CRANE OPERATOR CBC W/DIFF AUTOMATED STAT 02/12/2024 2:53 PM RAILROAD CRANE OPERATOR TROPONIN, QUANT STAT 02/12/2024 2:53 PM RAILROAD CRANE OPERATOR NM LUNG SCAN VENT+PERF STAT 2:11 [address] CT CHEST WO CON STAT 02/12/2024 1:14 PM RAILROAD CRANE OPERATOR documented in this encounter Results * ECG 12 lead (02/12/2024 3:41 PM RAILROAD CRANE OPERATOR) 02/12/2024 3:41 PM RAILROAD CRANE OPERATOR Narrative [facility] - 02/13/2024 3:58 AM RAILROAD CRANE OPERATOR ?SJS-ED ? Test Date: ?2024-02-12 Pat Name: ? MISHA BROWNE ?Department: ?? 70 ? Room: ? [id number] Gender: ? Female ? Pediatric Neuropsychologist: ?? : ?1980 ? Requested By: MARIA ISABEL ALEKSEYLUBA Order Number: [id number] ? Reading MD: ?? Bernard Mario ? Measurements Intervals ?Hinkley ? Rate: ? 109 ?P: ?140 OH: ? 177 ?QRS: ?-12 QRSD: ? 74 ? T: ?80 QT: ? 338 ? QTc: ?455 ? Interpretive Statements ECTOPIC ATRIAL TACHYCARDIA LEFT ATRIAL ENLARGEMENT ??[-0.15mV P-WAVE IN V1/V2] LOW QRS VOLTAGE IN PRECORDIAL LEADS ??[QRS DEFLECTION < 1.0 mV IN CHEST LEADS] ANTEROSEPTAL MYOCARDIAL INFARCTION , OF INDETERMINATE AGE [40+ ms Q WAVE IN V1-V4] ROAD CRANE OPERATOR Procedure Note Bernard Martin MD - 02/13/2024 SJS-ED Test Date: 2024-02-12 Pat Name: MISHA BROWNE Department: 70 Room: [id number] Gender: Female Pediatric Neuropsychologist: : 1980 Requested By: MARIA ISABEL OWENS Order Number: [id number] Reading MD: Bernard Martin Measurements Intervals Hinkley Rate: 109 P: 140 OH: 177 QRS: -12 QRSD: 74 T: 80 QT: 338 QTc: 455 Interpretive Statements ECTOPIC ATRIAL TACHYCARDIA LEFT ATRIAL ENLARGEMENT [-0.15mV P-WAVE IN V1/V2] LOW QRS VOLTAGE IN PRECORDIAL LEADS [QRS DEFLECTION < 1.0 mV IN CHESTLEADS] ANTEROSEPTAL MYOCARDIAL INFARCTION , OF INDETERMINATE AGE [40+ ms Q WAVEIN V1-V4] ROAD CRANE OPERATOR us Maria Isabel Owens FIELD CARE ADVOCATE ECG ORDERABLES Final Resul t Performing Organization Address [facility]/RUST de Phone Number [facility] * TROPONIN, QUANT (02/12/2024 2:53 PM RAILROAD CRANE OPERATOR) TROPONIN I HIGH SENSITIVITY 7 0 - 53 ng/L 02/12/2024 4:00 PM RAILROAD CRANE OPERATOR [facility] 02/12/2024 2:53 PM RAILROAD CRANE OPERATOR us Maria Isabel Owens NP LABORATORY Final Resul t Performing Organization Address [facility]/RUST de Phone Number [facility] [address] [place] [address], [phone] * (ABNORMAL) PRO-BRAIN NATRIURETIC PEPTIDE (02/12/2024 2:53 PM RAILROAD CRANE OPERATOR) Pathologist [facility] PRO-B TYPE NATRIURETIC PEPTIDE 2,468(H) <125 PG/ML 02/12/2024 3:30 PM RAILROAD CRANE OPERATOR [facility] Comment: AGE INDEPENDENT: <300 PG/ML HAS [...] OF 89% AND 72% FOR ACUTE CHF. 02/12/2024 2:53 PM RAILROAD CRANE OPERATOR Maria Isabel Owens FIELD CARE ADVOCATE LABORATORY Final Resul t Performing Organization Address City/[facility]/ZIP Co de Phone Number [facility] [address] [place] [address], [phone] * LACTIC ACID - SINGLE (02/12/2024 2:53 PM RAILROAD CRANE OPERATOR) [facility] LACTIC ACID VENOUS 0.8 0.4 - 2.0 MMOL/L 02/12/2024 3:22 PM RAILROAD CRANE OPERATOR [facility] 02/12/2024 2:53 PM RAILROAD CRANE OPERATOR Maria Isabel Owens FIELD CARE ADVOCATE LABORATORY Final Resul t [facility] [address] [place] [address], [phone] * (ABNORMAL) COMPREHENSIVE METABOLIC PANEL (02/12/2024 2:53 PM RAILROAD CRANE OPERATOR) Pathologist [facility] SODIUM S/P/B 137 136 - 145 MMOL/L 02/12/2024 3:30 PM RAILROAD CRANE OPERATOR [facility] POTASSIUM S/P/B 4.3 3.5 - 5.1 MMOL/L 02/12/2024 3:30 PM [facility] Comment:SLIGHT HEMOLYSIS, RE SULT MAY BE AFFECTED. CHLORIDE S/P/B 112 97 - 115 MMOL/L 02/12/2024 3:30 PM [facility] CO2 23.1 21.0 - 32.0 MMOL/L 02/12/2024 3:30 PM [facility] GLUCOSE 93 74 - 106 MG/DL 02/12/2024 3:30 PM [facility] BUN 25(H) 7 - 18 MG/DL 02/12/2024 3:30 PM [facility] CREATININE S/P/B 1.75(H) 0.55 - 1.02 MG/DL 02/12/2024 3:30 PM [facility] CALCIUM S/P/B 9.0 8.5 - 10.1 MG/DL 02/12/2024 3:30 PM [facility] BILIRUBIN TOTAL S/P/B 0.7 0.2 - 1.0 MG/DL 02/12/2024 3:30 PM [facility] ALKALINE PHOSPHATASE S/P/B 236(H) 37 - 98 U/L 02/12/2024 3:30 PM [facility] AST 53(H) 15 - 37 U/L 02/12/2024 3:30 PM [facility] ALT 85(H) 13 - 56 U/L 02/12/2024 3:30 PM [facility] TOTAL PROTEIN S/P/B 6.5 6.4 - 8.2 G/DL 02/12/2024 3:30 PM [facility] ALBUMIN S/P/B 3.1(L) 3.4 - 5.0 G/DL 02/12/2024 3:30 PM [facility] ANION GAP 1.9(L) 2.0 - 10.0 MMOL/L 02/12/2024 3:30 PM RAILROAD CRANE OPERATOR [facility] OSMOLALITY (CALC) 288 MOSM/KG 024 3:30 PM RAILROAD CRANE OPERATOR [facility] Comment:REFERENCE RANGE NOT ESTABLISHED GFR ESTIMATE 37(L) >90 ML/MIN/1. 73 M2 02/12/2024 3:30 PM RAILROAD CRANE OPERATOR [facility] GFR NOTES GFR REFERENCE S: 02/12/2024 3:30 PM RAILROAD CRANE OPERATOR [facility] Comment: THE ESTIMATED GFR IS CALCULATED [...] ml/min/1.73 m2 G5,KIDNEY FAILURE: <15 ml/min/1.73 m2 02/12/2024 2:53 PM RAILROAD CRANE OPERATOR Maria Isabel Owens FIELD CARE ADVOCATE LABORATORY Final Resul t [facility] [address] [place] [address], [phone] * (ABNORMAL) CBC W/DIFF AUTOMATED (02/12/2024 2:53 PM RAILROAD CRANE OPERATOR) WBC 7.95 4.00 - 10.80 x10'3/uL 02/12/2024 3:16 PM RAILROAD CRANE OPERATOR [facility] RBC 3.46(L) 4.10 - 5.40 x10'6/uL 02/12/2024 3:16 PM RAILROAD CRANE OPERATOR [facility] HGB 11.9(L) 12.0 - 16.0 G/DL 02/12/2024 3:16 PM RAILROAD CRANE OPERATOR [facility] HCT 36.1 36.0 - 47.0 % 02/12/2024 3:16 PM [facility] MCV 104.3(H) 78.0 - 100.0 FL 02/12/2024 3:16 PM [facility] MCH 34.4(H) 27.0 - 31.0 PG 02/12/2024 3:16 PM [facility] MCHC 33.0 33.0 - 36.0 G/DL 02/12/2024 3:16 PM [facility] RDW 13.4 11.5 - 14.5 % 02/12/2024 3:16 PM [facility] PLT 106(L) 150 - 350 x10'3/uL 02/12/2024 3:16 PM [facility] MPV 10.8(H) 7.4 - 10.4 FL 02/12/2024 3:16 PM [facility] DIFFERENTIAL TYPE AUTOMATED DIFFERENTIAL 02/12/2024 3:17 PM [facility] SEG NEUTROPHILS 75.4 % 3:17 PM [facility] LYMPHOCYTES 14.6 % 02/12/2024 3:17 PM [facility] MONOCYTES 7.5 % 02/12/2024 3:17 PM [facility] EOSINOPHILS 1.3 % 02/12/2024 3:17 PM [facility] BASOPHILS 0.1 % 02/12/2024 3:17 PM [facility] IMMATURE GRANS % 1.1 % 02/12/20 3:17 PM [facility] ABS. NEUTROPHILS 5.99 1.60 - 8.30 x10'3/uL 02/12/2024 3:17 PM [facility] ABS. LYMPHOCYTES 1.16 0.80 - 4.70 x10'3/uL 02/12/2024 3:17 PM [facility] ABS. MONOCYTES 0.60 0.00 - 1.50 x10'3/uL 02/12/2024 3:17 PM RAILROAD CRANE OPERATOR [facility] ABS. EOSINOPHILS 0.10 0.00 - 0.40 x10'3/uL 02/12/2024 3:17 PM RAILROAD CRANE OPERATOR [facility] ABS. BASOPHILS 0.01 0.00 - 0.20 x10'3/uL 02/12/2024 3:17 PM RAILROAD CRANE OPERATOR [facility] ABS. IMMATURE GRANULOCYTES 0.09(H) 0.00 - 0.03 x10'3/uL 02/12/2024 3:17 PM RAILROAD CRANE OPERATOR [facility] ABS. NUCLEATED RBC'S 0.00 0.00 - 0.01 x10'3/uL 02/12/2024 3:17 PM RAILROAD CRANE OPERATOR [facility] NRBC % 0.0 % 02/12/2024 3:17 PM RAILROAD CRANE OPERATOR [facility] 02/12/2024 2:53 PM RAILROAD CRANE OPERATOR us Maria Isabel Owens FIELD CARE ADVOCATE [place] [address], [phone] * NM LUNG SCAN VENT+PERF (02/12/2024 2:11 PM RAILROAD CRANE OPERATOR) Anatomical Region Laterality Modality Chest Nuclear Medicine 02/12/2024 2:13 PM RAILROAD CRANE OPERATOR Impressions 02/12/2024 2:18 PM RAILROAD CRANE OPERATOR IMPRESSION: Low probability for acute pulmonary embolism. Referred By: ?? Interpreted By: Shorty Ardon MD, 02/12/2024 2:13 PM Narrative 02/12/2024 2:18 PM RAILROAD CRANE OPERATOR [facility] [address] [place] [address] Ventilation-Perfusion Scintigraphy Exam Date: 02/12/2024. Indications: 43-year-old [...] Procedure Note Shorty Ardon MD - 02/12/[address] [address] Ventilation-Perfusion Scintigraphy Exam Date: 02/12/2024. Indications: 43-year-old [...] NP NUC MED Final Resul t * CT CHEST WO CON (02/12/2024 1:14 PM RAILROAD CRANE OPERATOR) Anatomical Region Laterality Modality Chest Computed Tomogra phy 02/12/2024 1:15 PM RAILROAD CRANE OPERATOR Impressions 02/12/2024 1:20 PM RAILROAD CRANE OPERATOR Impression: 1. Multifocal hazy groundglass opacities identified throughout both lungs. Findings can be seen in the setting of viral pneumonia. Follow-up to resolution recommended. 2. The partially visualized kidneys appear atrophic. Ordered By: MARIA ISABEL OWENS Interpreted By: Gabriel Alberto MD, 02/12/2024 1:15 PM Narrative 02/12/2024 1:20 PM RAILROAD CRANE OPERATOR [facility] [address] [place], [place] [address] Examination: CT CHEST WO CON Clinical Information: Chest pain and shortness of breath. Comparison:No comparison. Technique: IV contrast: None. Oral contrast: None. [...] in size. No pericardial effusion. Lymph nodes: No supraclavicular, axillary, internal mammary, mediastinal, or hilar adenopathy. VASCULATURE The unenhanced thoracic aorta and pulmonary arteries appear normal in caliber. LUNGS AND PLEURA Lungs: Multifocal hazy groundglass opacities are identified throughout both lungs. Pleura: No pleural effusion, thickening, or calcification. UPPER ABDOMEN The partially visualized kidneys appear atrophic. BONES/SOFT TISSUES No significant lesion. Procedure Note Gabriel Alberto MD - 02/12/2024 [facility] [address] [place], [place] [address] Examination: CT CHEST WO CON Clinical Information: Chest pain and shortness of breath. Comparison:No comparison. Technique: IV contrast: None. Oral contrast: None. [...] in size. No pericardial effusion. Lymph nodes: No supraclavicular, axillary, internal mammary, mediastinal,or hilar adenopathy. VASCULATURE The unenhanced thoracic aorta and pulmonary arteries appear normal incaliber. LUNGS AND PLEURA Lungs: Multifocal hazy groundglass opacities are identified throughoutboth lungs. Pleura: No pleural effusion, thickening, or calcification. UPPER ABDOMEN The partially visualized kidneys appear atrophic. BONES/SOFT TISSUES No significant lesion. Impression: 1. Multifocal hazy groundglass opacities identified throughout both lungs.Findings can be seen in the setting of viral pneumonia. Follow-up toresolution recommended. 2. The partially visualized kidneys appear atrophic. Ordered By: MARIA ISABEL OWENS Interpreted By: Gabriel Alberto MD, 02/12/2024 1:15 PM us Maria Isabel Owens FIELD CARE ADVOCATE CT Final Resul t documented in this encounter Visit Diagnoses Diagnosis Atypical pneumonia- Primary Pneumonia, organism unspecified Rhinovirus infection Rhinovirus infection in conditions classified elsewhere and of unspecified site documented in this encounter Administered Medications Inactive Administered Medications - up to 3 most recent administrations Medication Order MAR Action Action Date Dose Rate Site albuterol (PROVENTIL) nebulizer solution 5 mg 5 mg, Nebulization, Once, 1 dose, On Mon02/12/24 at 1315 Given 02/12/2024 1:35 PM RAILROAD CRANE OPERATOR 5 mg diphenhydrAMINE (BENADRYL) injection 25 mg 25 mg, Intravenous, Once, 1 dose, On Mon02/12/24 at 1415, For IV administration, give no faster than 25 mg/min. Given 02/12/2024 2:58 PM RAILROAD CRANE OPERATOR 25 mg diphenhydrAMINE (BENADRYL) injection 25 mg 25 mg, Intravenous, Once, 1 dose, On Mon02/12/24 at 1600, For IV administration, give no faster than 25 mg/min. Given 02/12/2024 3:52 PM RAILROAD CRANE OPERATOR 25 mg ipratropium-albuterol (DUONEB) 0.5-2.5 (3) MG/3ML nebulizer solution 3 mL 3 mL, Nebulization, Once, 1 dose, On Mon02/12/24 at 1315 Given 02/12/2024 1:35 PM RAILROAD CRANE OPERATOR 3 mLs ipratropium-albuterol (DUONEB) 0.5-2.5 (3) MG/3ML nebulizer solution 3 mL 3 mL, Nebulization, Once, 1 dose, On Mon02/12/24 at 1630 Given 02/12/2024 4:30 PM RAILROAD CRANE OPERATOR 3 mLs magnesium sulfate IVPB 2 g 2 g, Intravenous, at 150 mL/hr, Once, 1 dose, On Mon02/12/24 at 1315, Administer over 20 minutes New Bag 02/12/2024 2:59 PM RAILROAD CRANE OPERATOR 2 g 150 mL/hr metaxalone (SKELAXIN) tablet 800 mg 800 mg, Oral, Once, 1 dose, On Mon02/12/24 at 1315 Given 02/12/2024 2:56 PM RAILROAD CRANE OPERATOR 800 mg morphine injection 2 mg 2 mg, Intravenous, Once, 1 dose, On Mon02/12/24 at 1545 Given 02/12/2024 3:52 PM RAILROAD CRANE OPERATOR 2 mg morphine injection 4 mg 4 mg, Intravenous, Once, 1 dose, On Mon02/12/24 at 1315 Given 02/12/2024 2:58 PM RAILROAD CRANE OPERATOR 4 mg normal saline 0.9 % flush 3-10 mL 3-10 mL, Intravenous, Every 8 hours, First dose on Mon02/12/24 at 1315, Until Discontinued normal saline 0.9 % flush 3-10 mL 3-10 mL, Intravenous, As needed, Line care, Starting on Mon02/12/24 at 1300, Until Mon02/12/24 at 1907 oxyCODONE immediate release (ROXICODONE) tablet 5 mg 5 mg, Oral, Once, 1 dose, On Mon02/12/24 at 1700 Given 02/12/2024 5:02 PM RAILROAD CRANE OPERATOR 5 mg technetium tc 99m albumin aggregate (DRAXIMAGE MAA) radio-isotope injection 3.8 millicurie 3.8 millicurie, Intravenous, Once, 1 dose, On Mon02/12/24 at 1345, RADIOPHARMACEUTICAL: Use appropriate precautions for handling & disposal. Follow appropriate safety measures to minimize radiation exposure during administration; use waterproof gloves & effective shielding, including syringe perez. Given 02/12/2024 1:35 PM RAILROAD CRANE OPERATOR 3.8 millicuries xenon Xe 133 radio-isotope gas 23.5 millicurie 23.5 millicurie, Inhalation, Once, 1 dose, On Mon02/12/24 at 1330, Administered by inhalation from closed respirator systems or spirometers; ensure delivery system is leak proof. Do not allow xenon Xe 133 to regrind mill operator tubing or respirator containers. Measure dose with a suitable radioactivity calibration system immediately prior to administration. RADIOPHARMACEUTICAL: Use appropriate precautions for handling & disposal. Follow appropriate safety measures to minimize radiation exposure during administration; use waterproof gloves & effective shielding, including syringe perez. Given 02/12/2024 1:30 PM RAILROAD CRANE OPERATOR 23.5 millicuries documented in this encounter Active and Recently Administered Medications Times are shown in RAILROAD CRANE OPERATOR. Scheduled Medication Order 02/10/2024 02/11/2024 02/12/2024 albuterol (PROVENTIL) nebulizer solution 5 mg (COMPLETED) 5 mg, Nebulization, Once, 1 dose, On Mon02/12/24 at 1315 1335 (Given - Provid er: Matheus Washington CRT) diphenhydrAMINE (BENADRYL) injection 25 mg (COMPLETED) 25 mg, Intravenous, Once, 1 dose, On Mon02/12/24 at 1415, For IV administration, give no faster than 25 mg/min. 1458 (Given - Provid er: Lillian Russell RN) diphenhydrAMINE (BENADRYL) injection 25 mg (COMPLETED) 25 mg, Intravenous, Once, 1 dose, On Mon02/12/24 at 1600, For IV administration, give no faster than 25 mg/min. 1552 (Given - Provid er: Lorelei Schmidt RN-LP) ipratropium-albuterol (DUONEB) 0.5-2.5 (3) MG/3ML nebulizer solution 3 mL (COMPLETED) 3 mL, Nebulization, Once, 1 dose, On Mon02/12/24 at 1315 1335 (Given - Provid er: Matheus Washington CRT) ipratropium-albuterol (DUONEB) 0.5-2.5 (3) MG/3ML nebulizer solution 3 mL (COMPLETED) 3 mL, Nebulization, Once, 1 dose, On Mon02/12/24 at 1630 1630 (Given - Provid er: Matheus Washington, TALENT MANAGEMENT MANAGER) magnesium sulfate IVPB 2 g (COMPLETED) 2 g, Intravenous, at 150 mL/hr, Once, 1 dose, On Mon02/12/24 at 1315, Administer over 20 minutes 1459 (New Bag - Prov ider: Lillian Russell RN)1600 (Infusion Stop Time - Provider: Melba Salinas RN) metaxalone (SKELAXIN) tablet 800 mg (COMPLETED) 800 mg, Oral, Once, 1 dose, On Mon02/12/24 at 1315 1456 (Given - Provid er: Lillian Russell RN) morphine injection 2 mg (COMPLETED) 2 mg, Intravenous, Once, 1 dose, On Mon02/12/24 at 1545 1552 (Given - Provid er: FILOMENA [place]) morphine injection 4 mg (COMPLETED) 4 mg, Intravenous, Once, 1 dose, On Mon02/12/24 at 1315 1458 (Given - Provid er: Lillian Russell RN) normal saline 0.9 % flush 3-10 mL 3-10 mL, Intravenous, Every 8 hours, First dose on Mon02/12/24 at 1315, Until Discontinued 1459 (Not Given - Pr ovider: Lillian Russell RN - Reason: Other) oxyCODONE immediate release (ROXICODONE) tablet 5 mg (COMPLETED) 5 mg, Oral, Once, 1 dose, On Mon02/12/24 at 1700 1702 (Given - Provid er: FILOMENA [place]) technetium tc 99m albumin aggregate (DRAXIMAGE MAA) radio-isotope injection 3.8 millicurie (COMPLETED) 3.8 millicurie, Intravenous, Once, 1 dose, On Mon02/12/24 at 1345, RADIOPHARMACEUTICAL: Use appropriate precautions for handling & disposal. Follow appropriate safety measures to minimize radiation exposure during administration; use waterproof gloves & effective shielding, including syringe perez. 1335 (Given - Provid er: Akil Lin, RTR) xenon Xe 133 radio-isotope gas 23.5 millicurie (COMPLETED) 23.5 millicurie, Inhalation, Once, 1 dose, On Mon02/12/24 at 1330, Administered by inhalation from closed respirator systems or spirometers; ensure delivery system is leak proof. Do not allow xenon Xe 133 to regrind mill operator tubing or respirator containers. Measure dose with a suitable radioactivity calibration system immediately prior to administration. RADIOPHARMACEUTICAL: Use appropriate precautions for handling & disposal. Follow appropriate safety measures to minimize radiation exposure during administration; use waterproof gloves & effective shielding, including syringe perez. 1330 (Given - Provid er: Akil Lin RTR) PRN Medication Order 02/10/2024 02/11/2024 02/12/2024 normal saline 0.9 % flush 3-10 mL 3-10 mL, Intravenous, As needed, Line care, Starting on Mon02/12/24 at 1300, Until Mon02/12/24 at 1907 documented in this encounter Care Teams Parachute Panel Joiner Relationship Specialty Start Date End Date Hermes Ramirez III, MD [address] [facility] [address] [place] [address] PCP - General FAMILY PRACTICE 06/20/17 documented as of this encounter
--- OUTSIDE RECORDS SUMMARY | 2024-03-20 11:50 | XMS_ITS | Continuity of Care Document ---
Author Organization [facility] Address [address] [place] [address] Care Team Providers Care Field Sales Engineer Name Role Phone Hermes Ramirez Primary Care Physician Encounter [facility] [id number] Date(s): 02/08/21 - 02/08/[address] [id number] Encounter Diagnosis Acute urinary tract infection(Discharge Diagnosis) - 02/08/21 Acute dehydration(Discharge Diagnosis) - 02/08/21 Migraine headache(Discharge Diagnosis) - 02/08/21 Discharge Disposition: Home or Self Care Attending Physician: Zack Byrnes MD Admitting Physician: Zack Byrnes MD Allergies, Adverse Reactions, Alerts Substance Reaction Severity Status gentamicin Moderate Active erythromycin Medication interaction Activ e aspirin Medication interaction Activ e Toradol Kidney failure as a complication of care Active NSAIDs Severe Active Assessment and Plan Future Appointments Diagnostic Tests Pending * Urine Culture 02/08/21 Functional Status 02/08/21 Family Member Travel History No recent t [...] 0 Refill(s) Start Date: 07/01/20 Status: Ordered cephalexin 500 mg oral capsule 500 mg = 1 cap, Oral, every 12 hr, # 20 cap, 0 Refill(s), 02/18/21 17:33:00 NURSERY HELPER, Pharmacy: [place], [place], 157.48, cm, 02/08/21 15:39:00 NURSERY HELPER, Height/Length Dosing, 77.11, kg, 02/08/2115:39:00 NURSERY HELPER, Weight Dosing Start Date: 02/08/21 Stop Date: 02/18/21 Status: Ordered gabapentin 300 mg oral capsule TAKE ONE CAPSULE AT BEDTIME Start Date: 12/18/20 Status: Ordered LORazepam 0.5 mg oral tablet TAKE ONE TABLET BY MOUTH DAILY NEEDED FOR ANXIETY Start Date: 12/18/20 Status: Ordered Metoprolol Tartrate 25 mg oral tablet 25 mg = 1 tab, Oral, BID, # 180 tab, 3 Refill(s), Pharmacy: [place], [place], [address], cm, 10/22/20 21:26:00 CDT, Height/Length Dosing, 74, kg, 10/22/20 21:26:00 CDT, Weight Dosing Start Date: 12/18/20 Status: Ordered Pepcid 20 mg oral tablet 20 mg = 1 tab, Oral, BID, 0 Refill(s) Start Date: 09/29/20 Status: Ordered Retin-A 0.05% topical cream 1 sanjiv, Topical, every day at bedtime, # 45 g, 2 Refill(s), Pharmacy: [place], [place], 157.48, cm, 08/18/20 12:26:00 CDT, Height/Length [...] from Oropharyngeal Swab collected on 25-JAN-2021 10:43:00 NURSERY HELPER tested positive for COVID-19. Procedures Procedure Date Related Diagnosis Body Site Status Bladder washout 12/14/20 Completed Kidney transplant 05/13/20 Complet ed Tx - Liver transplantation 05/08/20 Completed delivery Complet ed cyst removal from breast Completed Hernia Completed liver transplant Complete d Results Laboratory List Name Date Urinalysis with Culture if Indicated .Urine Volume 02/08/21 Urinalysis Microscopic 02/08/21 Most recent to oldest [Reference Range]: 1 UA Color Yellow (02/08/21 3:43 PM) UA WBC [0-5] 31-40 *ABN* (02/08/21 3:43 PM) UA Urobilinogen [Normal mg/dL] Normal mg /dL (02/08/21 3:43 PM) UA Bili [Negative mg/dL] Negative mg/dL (02/08/21 3:43 PM) UA Ketones [Negative mg/dL] Negative mg/ dL (02/08/21 3:43 PM) UA RBC [0-3] 6-10 *ABN* (02/08/21 3:43 PM) UA Leuk Est [Negative Guille/mcL] 75 Guille/mc L *ABN* (02/08/21 3:43 PM) UA Nitrite [Negative] Negative (02/08/21 3:43 PM) UA Glucose [Normal mg/dL] Normal mg/dL (02/08/21 3:43 PM) UA Bacteria [None Seen] Many *ABN* (02/08/21 3:43 PM) UA Protein [Negative mg/dL] Negative mg/ dL (02/08/21 3:43 PM) UA Blood [Negative Rocael/mcL] 50 Rocael/mcL *ABN* (02/08/21 3:43 PM) UA Spec Grav 1.015 *NA* (02/08/21 3:43 PM) UA Squam Epithelial [None Seen] Many *ABN* (02/08/21 3:43 PM) UA pH 6 *NA* (02/08/21 3:43 PM) UA Appear [Clear] Hazy (02/08/21 3:43 PM) UA Culture Ind?. Indicated *ABN* (02/08/21 3:43 PM) Urine Srce Clean Catch (02/08/21 3:43 PM) Urine Volume 12 mL (02/08/21 3:43 PM) Vital Signs Most recent to oldest [Reference Range]: 1 Temperature Oral [35.8-37.3 Deg C] 37.0 Deg C (02/08/21 3:21 PM) Peripheral Pulse Rate [60-100 bpm] 111 b pm *HI* (02/08/21 3:21 PM) Respiratory Rate [12-24 br/min] 18 br/mi n (02/08/21 3:21 PM) Blood Pressure [90-140/60-90 mmHg] 140/8 6mmHg (02/08/21 3:21 PM) Weight 77.11 kg (02/08/21 3:21 PM) Weight Dosing 77.11 kg (02/08/21 3:39 PM) Height 157.480 cm (02/08/21 3:21 PM) Height/Length Dosing 157.480 cm (02/08/21 3:39 PM) Body Mass Index Estimated 31 (02/08/21 3:21 PM) Social History Social History Type Response Smoking Status 5-9 cigarettes (betw een 1/4 to 1/2 pack)/day in last 30 days entered on: 08/18/20 Sex Hospital Discharge Instructions Patient Education 02/08/2021 17:31:59 Urinary Tract Infection, Adult Urinary Tract Infection, Adult A urinary tract infection (UTI) is an infection of any part of the urinary tract. The urinary tractincludes the kidneys, ureters, bladder, and urethra. These organs make, store, and get rid of urinein the body. Your health care provider may use other names to describe the infection. An upper UTI affects the ureters and kidneys (pyelonephritis). A lower UTI affects the bladder (cystitis) and urethra (urethritis). What are the causes? Most urinary tract infections are caused by bacteria in your genital area, around the entrance to your urinary tract (urethra). These bacteria grow and cause inflammation of your urinary tract. What increases the risk? You are more likely to develop this condition if: ??? You have a urinary catheter that stays in place (indwelling). ??? You are not able to control when you urinate or have a bowel movement (you have incontinence). ??? You are female and you: ??? Use a spermicide or diaphragm for control. ??? Have low estrogen levels. ??? Are . ??? You have certain genes that increase your risk (genetics). ??? You are sexually active. ??? You take antibiotic medicines. ??? You have a condition that causes your flow of urine to slow down, such as: ??? An enlarged prostate, if you are male. ??? Blockage in your urethra (stricture). ??? A kidney stone. ??? A nerve [...] include: ??? Needing to urinate right away (urgently). ??? Frequent urination or passing small amounts of urine frequently. ??? Pain or burning with urination. ??? Blood in the urine. ??? Urine that smells bad or unusual. ??? Trouble urinating. ??? Cloudy urine. ??? Vaginal discharge, if you are female. ??? Pain in the abdomen or the lower back. You may also have: ??? Vomiting or a decreased appetite. ??? Confusion. ??? Irritability or tiredness. ??? A fever. ??? Diarrhea. The first symptom in older adults may be confusion. In some cases, they may not have any symptoms until the infection has worsened. How is this diagnosed? This condition is diagnosed based on your medical history and a physical exam. You may also have other tests, including: ??? Urine tests. ??? Blood tests. ??? Tests for sexually transmitted infections (STIs). If you have had more than one UTI, a cystoscopy or imaging studies may be done to determine the cause of the infections. How is this treated? Treatment for this condition includes: ??? Antibiotic medicine. ??? Tddk-hfd-vbtbzxh medicines to treat discomfort. ??? Drinking enough [...] these instructions at home: Medicines ??? Take qzqg-les-bmkfleu and prescription medicines only as told by [...] ??? Wipe from front to back after a bowel movement if you are female. Use each tissue one time whenyou wipe. ??? Drink enough fluid to keep your urine pale yellow. ??? Keep all follow-up visits as told by your health care provider. This is important. Contact a health care provider if: ??? Your symptoms do not get better after 1???2 days. ??? Your symptoms go away and then return. Get help right away if you have: ??? Severe pain in your back or your lower abdomen. ??? A fever. ??? Nausea or vomiting. Summary ??? A urinary tract infection (UTI) is an infection of any part of the urinary tract, which includes the kidneys, ureters, bladder, and urethra. ??? Most urinary tract infections are caused by bacteria in your genital area, around the entrance to your urinary tract (urethra). ??? Treatment for this condition often includes [...] with your health care provider. Document Revised: 02/21/2019 Document Reviewed: 09/13/2018 [employer] Patient Education ?? 2020 [employer] Follow Up Care 02/08/2021 15:21:26 With:Hermes Ramirez MD Address: [address] [place] [address], [address] [place] [address]- When:1 week
--- OUTSIDE RECORDS SUMMARY | 2024-03-20 11:51 | XMS_ITS | Encounter Summary ---
Author Organization [facility] Address [address] [place] [address]. [place], [place] [id number] [place] [address] Care Team Providers Care Busboy Name Role Phone Ashley ZUNIGA MD, Hermes Perez Primary Care Provid er Reason for Visit * Reason Comments Headache Encounter Details Date Type Department Care Team (Late st Contact Info) Description 07/27/2022 7:24 PM CDT - 07/27/2022 7:47 PM CDT Emergency [facility] [address] [place] [address] [place] [address] Ziyad Hu MD [address] [place] [address] Headache Discharge Disposition: Left Against Medical Advice Social History Tobacco Use Types Packs/Day Years Used Date Smoking Tobacco: Every Day Cigarettes 0.5 15 Smokeless Tobacco: Never Alcohol Use Standard Drinks/Week Comments No 0 (1 standard drink = 0.6 oz pur e alcohol) Comments No Sex and Gender Information Value Date Recorded Sex Assigned at Not on file 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 No / Unsure 07/27/2022 7:23 PM CDT documented as of this encounter Last Filed Vital Signs Vital Sign Reading Time Taken Comments Blood Pressure 155/95 07/27/2022 7:29 PM CDT Pulse 115 07/27/2022 7:29 PM CDT Temperature 37.2 ??C (99 ??F) 07/27/2022 7:29 PM CDT Respiratory Rate 18 07/27/2022 7:29 PM CDT Oxygen Saturation 100% 07/27/2022 7:29 PM CDT Inhaled Oxygen Concentration - - Weight 77.1 kg (170 lb) 07/27/2022 7:29 PM CDT Height 157.5 cm (5' 2 ) 07/27/2022 7:29 PM CDT Body Mass Index 31.09 07/27/2022 7:29 PM CDT documented in this encounter Discharge Instructions * Attachments The following attachments cannot be sent through Care Everywhere. * Migraines Discharge Instructions (Yemeni) documented in this encounter Medications at Time of Discharge amLODIPine (NORVASC) 5 MG tablet Take 1 tablet (5 mg total) by mouth daily. gabapentin (NEURONTIN) 600 MG tablet Take 1 tablet (600 mg total) by mouth 2 (two) times daily. LORazepam (ATIVAN) 0.5 MG tablet Take 1 tablet (0.5 mg total) by mouth. 10/26/2021 metoprolol succinate ER (TOPROL-XL) 100 MG 24 hr tablet Take 1 tablet (100 mg total) by mouth 2 (two) times a day. 12/30/2019 topiramate (TOPAMAX) 100 MG tablet Take 1 tablet (100 mg total) by mouth 2 (two) times daily. 10/27/2021 butalbital-acetam inophen-caffeine (FIORICET) 50-300-40 MG capsule Take by mouth every 4 (four) hours as needed. 07/22/2023 cycloSPORINE modified (NEORAL) 100 MG capsule Take 175 mg by mouth 2 (two) times daily. 02/20/2024 furosemide 20 MG tablet 20 mg daily. 04/14/2020 07/22/2023 Mirtazapine (REMERON OR) Take 7.5 mg by mouth. 07/16/2022 07/22/2023 SODIUM BICARBONATE 650 MG tablet TAKE 2 TABLETS BY MOUTH 3 (THREE) TIMES A DAY. PT NEEDS A FOLLOW UP 540 tablet 1 09/30/2019 07/22/2023 venlafaxine (EFFEXOR) 37.5 MG tablet Take 1 tablet (37.5 mg total) by mouth. 04/21/2022 02/20/2024 documented as of this encounter ED Notes * Stephanie Herrera RN - 07/27/2022 7:49 PM CDT in room, patient left due to not getting the medication that she wanted. Patient discharged, butleft before signing paperwork. * Lizbeth Matute RN - 07/27/2022 7:36 PM CDT Pt arrives to the ED with c/o a migraine. Pt states that she has a hx of migraines. Pt states she has visual disturbances and noise sensitivity. Pt is currently nauseous. Pt took a prescribed migraine pill and tylenol around 1400 with no relief. * Ziyad Hu MD - 07/27/2022 7:35 PM CDT eMERGENCY dEPARTMENT eNCOUnter CHIEF COMPLAINT Chief Complaint Patient presents with Headache HPI HPI Elsa Browne is a 41-year-old female who presents to the ER with a complaint of migraine headache. Patient states she been having a migraine for 3 days and this is typical of when her migraines get bad. She has light sensitivity and blurred vision in her right eye which is typical. Her neurolog ist recently gave her Botox but that has not seemed to help. ALLERGIES Review of patient's allergies indicates: Allergen Reactions Azithromycin Unknown Medication interaction Erythromycin Unknown and Other (see comment) Other reaction(s): Medication interaction Medication interaction Gentamicin Other (see comment) Medication interaction Ketorolac Other (see comment) Ketorolac Tromethamine Other (see comment) KIDNEY Other reaction(s): Kidney failure as a complication of care. RENAL TOXICITY. CURRENT MEDICATIONS Current Outpatient Medications Medication Sig cycloSPORINE modified (NEORAL) 100 MG capsule Take 175 mg by mouth 2 (two) times daily. LORazepam (ATIVAN) 0.5 MG tablet Take 1 tablet (0.5 mg total) by mouth. Mirtazapine (REMERON OR) Take 7.5 mg by mouth. topiramate (TOPAMAX) 100 MG tablet Take 1 tablet (100 mg total) by mouth 2 (two) times daily. venlafaxine (EFFEXOR) 37.5 MG tablet Take 1 tablet (37.5 mg total) by mouth. amLODIPine (NORVASC) 10 MG tablet Take 1 tablet (10 mg total) by mouth daily. oplbvchqjk-nnslvitqhxoca-xrkhddnv (FIORICET) 50-300-40 MG capsule Take by mouth every 4 (four) hours as needed. furosemide 20 MG tablet 20 mg daily. gabapentin (NEURONTIN) 300 MG capsule Take 1 capsule (300 mg total) by mouth 2 (two) times daily. metoprolol succinate ER 50 MG 24 hr tablet Take 50 mg by mouth. SODIUM BICARBONATE 650 MG tablet TAKE 2 TABLETS BY MOUTH 3 (THREE) TIMES A DAY. PT NEEDS A FOLLOW UP PAST MEDICAL HISTORY Past Medical History: Diagnosis Date Anemia Biliary atresia congenital Chronic kidney disease Migraine Thrombocytopenia (CMS/HCC) SURGICAL HISTORY Past Surgical History: Procedure Laterality Date SECTION INGUINAL HERNIA Bilateral age 5 LIVER TRANSPLANTATION SOCIAL HISTORY Social History Socioeconomic History Marital status: Tobacco Use Smoking status: Every Day Packs/day: 0.50 Years: 15.00 Pack years: 7.50 Types: Cigarettes Smokeless tobacco: Never Substance and Sexual Activity Alcohol use: No Drug use: No FAMILY HISTORY Family History Problem Relation Name Age of Onset Diabetes Neg Hx REVIEW OF SYSTEMS Review of Systems All other ROS negative unless noted above in HPI. PHYSICAL EXAM Physical Exam Filed Vitals: 07/27/221928 BP: (!) 155/95 Pulse: (!) 115 Resp: 18 Temp: 99 ??F (37.2 ??C) TempSrc: Temporal SpO2: 100% Weight: 77.1 kg (170 lb) Height: 5' 2 (1.575 m) The patient is a well developed and well nourished adult female in mild painful distress, alert andoriented. HEENT: PERRL, EOMI, photophobia is present Mucous membranes moist NECK: Supple without adenopathy or rigidity CHEST: Respirations are easy and unlabored EXT: No clubbing, cyanosis, edema NEURO: CN II-XII grossly intact, no focal weakness SKIN: No rash or significant lesions EKG RADIOLOGY No orders to display LABS No results found for this visit on 07/27/22. ED MEDICATIONS Medications - No data to display PROCEDURES Procedures CONSULTS: ED COURSE & MEDICAL DECISION MAKING MDM I had a long discussion with this patient once again. As noted in previous ER visits I been uncomfortable with giving her narcotics in the past told her that is no longer standard of care for migraine headache. Willing to give her multiple medications including Reglan Benadryl Phenergan Haldol or droperidol. I also reviewed the medical record which shows that Dr. Ardon and Dr. Menjivar in the last year have had similar conversations with her and refusing to give her narcotics. Patient told me that she would have gone to the hospital closer to her home as they usually give her narcotic painmedicine but they were too busy tonight. Patient grew very upset with me and states that it is the only thing it helps her. I told her it is not standard of care. Again I offered her nonnarcotic therapy and she decided to leave. FINAL IMPRESSION SNOMED CT(R) 1. Headache HEADACHE Hermes Ramirez III, MD [address] [facility] [address] [place] [address] As needed New Prescriptions No medications on file Ziyad Hu MD 07/27/221945 documented in this encounter Plan of Treatment Not on file documented as of this encounter Visit Diagnoses Diagnosis Headache- Primary documented in this encounter Care Teams Busboy Relationship Specialty Start Date End Date Hermes Ramirez III, MD [address] [place] [address] [place] [address] PCP - General FAMILY PRACTICE 06/20/17 documented as of this encounter
--- OUTSIDE RECORDS SUMMARY | 2024-03-20 11:51 | XMS_ITS | Encounter Summary ---
Author Organization [facility] Address [address] [place] [address]. 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
--- OUTSIDE RECORDS SUMMARY | 2024-03-20 11:51 | XMS_ITS | Encounter Summary ---
Author Organization [facility] Address [address] [place] [address]. 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 No / Unsure 04/26/2022 10:57 AM CHEMISTRY RESEARCH ASSISTANT documented as of this encounter Plan of Treatment Not on file documented as of this encounter Visit Diagnoses Not on filedocumented in this encounter Care Teams Planning Supervisor Relationship Specialty Start Date End Date Hermes Ramirez III, MD [address] [facility] [address] [place] [address] PCP - General FAMILY PRACTICE 06/20/17 documented as of this encounter
--- OUTSIDE RECORDS SUMMARY | 2024-03-20 11:51 | XMS_ITS | Encounter Summary ---
Author Organization [facility] Address [address] [place] [address]. [place], [place] [id number] [place] [id number] Care Team Providers Care Shoemaker Apprentice Name Role Phone Ashley ZUNIGA MD, Hermes Perez Primary Care Provid er Reason for Visit * Reason Comments Headache Encounter Details Date Type Department Care Team (Late st Contact Info) Description 07/23/2023 9:47 PM CDT - 07/23/2023 10:21 PM CDT Emergency [facility] [address] [place] [id number] Allen Foster MD [address] [place], [place] [id number] Headache Discharge Disposition: Home or Self Care (Routine Discharge) Social History Tobacco Use Types Packs/Day Years Used Date Smoking Tobacco: Every Day Cigarettes 0.5 15 Smokeless Tobacco: Never Alcohol Use Standard Drinks/Week Comments No 0 (1 standard drink = 0.6 oz pur e alcohol) Comments No Sex and Gender Information Value Date Recorded Sex Assigned at Not on file 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 Gender Identity Not on file Sexual Orientation Not on file documented as of this encounter Last Filed Vital Signs Vital Sign Reading Time Taken Comments Blood Pressure 150/90 07/23/2023 10:01 PM CDT Pulse 74 07/23/2023 10:01 PM CDT Temperature 36.6 ??C (97.8 ??F) 07/23/2023 10:01 PM C DT Respiratory Rate 18 07/23/2023 10:01 PM CDT Oxygen Saturation 100% 07/23/2023 10:01 PM CDT Inhaled Oxygen Concentration - - Weight 81.6 kg (180 lb) 07/23/2023 9:56 PM CDT Height 157.5 cm (5' 2 ) 07/23/2023 9:56 PM CDT Body Mass Index 32.92 07/23/2023 9:56 PM CDT documented in this encounter Discharge Instructions * Attachments The following attachments cannot be sent through Care Everywhere. * Migraines Discharge Instructions (Armenian) * Migraine in adults (Armenian) * Home Headache Remedies (Armenian) documented in this encounter Medications at Time [...] by mouth 2 (two) times daily. 10/27/2021 aspirin 81 MG chewable tablet Chew 1 tablet (81 mg total) by mouth daily. 02/20/2024 baclofen (LIORESAL) 10 MG tablet Take 1 tablet (10 mg total) by mouth 3 (three) times daily. 15 tablet 07/22/2023 02/20/2024 cycloSPORINE modified (NEORAL) 100 MG capsule Take 175 mg by mouth 2 (two) times daily. 02/20/2024 venlafaxine (EFFEXOR) 37.5 MG tablet Take 1 tablet (37.5 mg total) by mouth. 04/21/2022 02/20/2024 documented as of this encounter ED Notes * Allen Foster MD - 07/23/2023 9:51 PM CDT Chief Complaint Chief Complaint Patient presents with Headache History of Present Illness This is a 42 year old patient with history of chronic low back pain presents with multiple complaints. She complains of a migraine headache, back pain and an abrasion of her right thumb. She said that she was fixing supper when she scratched her right thumb with her knife. She reportedly had an MRIof the lumbar spine earlier this week showing spinal stenosis, DDD, and arthritis and was referred to pain management. She did not bring these results with her nor are they available remotely. She has a history of liver and kidney transplant and takes a small dose of prednisone daily. She is allowed 1000mg tylenol daily and has been taking this without control of her pain. She is not permitted touse NSAIDs per patient. Pain is low back. She also complains of her typical migraine. No reported numbness or weakness, she ambulated into the room without difficulty. Medical History ALLERGIES: Review of patient's allergies [...] Start Date End Date Taking? Authorizing Provider amLODIPine (NORVASC) 10 MG tablet Take 1 tablet (10 mg total) by mouth daily. Default History Genericprovider aspirin 81 MG chewable tablet Chew 1 tablet (81 mg total) by mouth daily. Default History Genericprovider baclofen (LIORESAL) 10 MG tablet Take 1 tablet (10 mg total) by mouth 3 (three) times daily. 07/22/23Chuckie Arana MD cycloSPORINE modified (NEORAL) 100 MG capsule Take 175 mg by mouth 2 (two) times daily. Default History Genericprovider gabapentin (NEURONTIN) 300 MG [...] No Review of Systems Review of Systems As per HPI otherwise all systems are reviewed and found to be negative Physical Exam Filed Vitals: 07/23/23 2156 07/23/23 2201 BP: (!) 150/90 Pulse: 74 74 Resp: 18 18 Temp: 97.8 ??F (36.6 ??C) 97.8 ??F (36.6 ??C) TempSrc: Temporal SpO2: 100% 100% Weight: 81.6 kg (180 lb) Height: 1.575 m (5' 2 ) Physical Exam Constitutional: Appearance: Normal appearance. HENT: Head: Normocephalic and atraumatic. Nose: Nose normal. Mouth/Throat: Mouth: Mucous membranes are moist. Pharynx: Oropharynx is clear. Eyes: Extraocular Movements: Extraocular movements intact. Conjunctiva/sclera: Conjunctivae normal. Pupils: Pupils are equal, round, and reactive to light. Cardiovascular: Rate and Rhythm: Normal rate and regular rhythm. Pulses: Normal pulses. Heart sounds: Normal heart sounds. Pulmonary: Effort: Pulmonary effort is normal. Breath sounds: Normal breath sounds. Abdominal: General: Bowel sounds are normal. Palpations: Abdomen is soft. Musculoskeletal: General: Normal range of motion. Cervical back: Neck supple. Skin: General: Skin is warm and dry. Comments: Scratch on right thumb Neurological: General: No focal deficit present. Mental Status: She is alert and oriented to person, place, and time. Mental status is at baseline. Psychiatric: Mood and Affect: Mood normal. Behavior: Behavior normal. Thought Content: Thought content normal. Diagnostic Studies / Procedures ELECTROCARDIOGRAMS: No results found for this visit on 07/23/23. LABORATORY STUDIES: No results found for this visit on 07/23/23. IMAGING STUDIES No orders to display ED Course / Medical Decision Making Medical Decision Making Thumb is thoroughly cleaned, surface scratch, does not require any stitches Patient presents with migraine, chronic back pain, thumb scratch. Patient was seen in the emergencydepartment yesterday. Patient recently referred to pain management for MRI findings of spinal stenosis degenerative disc disease and arthritis. Apparently there is nothing acutely surgical from her recent MRI. Patient can take NSAIDs and can increase her Tylenol,. I have offered her a muscle relaxant as well as droperidol. She states that she has had morphine and Dilaudid in the past for her headaches. Opiates are not indicated and nontraumatic back pain as well is for migraine headaches. I will not be giving any opiates today in the ER or by prescription. Clinical Impression Migraine (Primary) Chronic back pain Disposition: Discharge Allen Foster MD 07/23/232233 documented in this encounter Plan of Treatment Not on file documented as of this encounter Visit Diagnoses Diagnosis Migraine- Primary Migraine, unspecified, without mention of intractable migraine without mention of status migrainosus Chronic back pain Backache, unspecified documented in this encounter Care Teams Shoemaker Apprentice Relationship Specialty Start Date End Date Hermes Ramirez III, MD [address] [place] [address] PCP - General FAMILY PRACTICE 06/20/17 documented as of this encounter
--- OUTSIDE RECORDS SUMMARY | 2024-03-20 11:51 | XMS_ITS | Encounter Summary ---
Author Organization [facility] Address [address] [place] [address]. 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 Gender Identity Not on file Sexual Orientation Not on file documented as of this encounter Last Filed Vital Signs Vital Sign Reading Time Taken Comments Blood Pressure 152/84 07/22/2023 6:00 PM CDT Pulse 79 07/22/2023 5:40 PM CDT Temperature 36.7 ??C (98 ??F) 07/22/2023 5:40 PM CDT Respiratory Rate 18 07/22/2023 5:40 PM CDT Oxygen Saturation 100% 07/22/2023 6:00 PM CDT Inhaled Oxygen Concentration - - Weight 88.1 kg (194 lb 4 oz) 07/22/2023 5:40 PM CDT Height 157.5 cm (5' 2 ) 07/22/2023 5:40 PM CDT Body Mass Index 35.53 07/22/2023 5:40 PM CDT documented in this encounter Discharge Instructions * Attachments The following attachments cannot be sent through Care Everywhere. * Low back pain in adults (Scottish) documented in this encounter Medications at Time [...] as of this encounter ED Notes * Chuckie Araan MD - 07/22/2023 5:48 PM CDT Emergency Department Note Chief Complaint Chief Complaint Patient presents with Back Pain History of Present Illness Patient with history of chronic low back pain presents with low back pain. She reportedly had an MRI of the lumbar spine earlier this week showing spinal stenosis, DDD, and arthritis and was referredto pain management. She did not bring these results with her nor are they available remotely. She has a history of liver and kidney transplant and takes a small dose of prednisone daily. She is allowed 1000mg tylenol daily and has been taking this without control of her pain. She is not permitted to use NSAIDs per patient. Pain is low back, midline, and goes into her buttocks. No reported numbness or weakness, she ambulated [...] tablet (10 mg total) by mouth daily. Yes Default History Genericprovider aspirin 81 MG chewable tablet Chew 1 tablet (81 mg total) by mouth daily. Yes Default History Genericprovider baclofen (LIORESAL) 10 MG tablet Take 1 tablet (10 mg total) by mouth 3 (three) times daily. 07/22/23Yes Chuckie Arana MD cycloSPORINE modified (NEORAL) 100 MG capsule Take 175 mg by mouth 2 (two) times daily. Yes DefaultHistory Genericprovider gabapentin (NEURONTIN) 300 MG capsule Take 1 capsule (300 mg total) by mouth 2 (two) times daily. Yes Default History Genericprovider LORazepam (ATIVAN) 0.5 MG tablet Take 1 tablet (0.5 mg total) by mouth. 10/26/21 Yes Default History Genericprovider metoprolol succinate ER 50 MG 24 hr tablet Take 1 tablet (50 mg total) by mouth. 12/30/19 Yes Doc [facility] predniSONE (DELTASONE) 2.5 mg tablet Take 1 tablet (2.5 mg total) by mouth daily. Yes Default History Genericprovider topiramate (TOPAMAX) 100 MG tablet Take 1 tablet (100 mg total) by mouth 2 (two) times daily. 10/27/21 Yes Default History Genericprovider venlafaxine (EFFEXOR) 37.5 MG tablet Take 1 tablet (37.5 mg total) by mouth. 04/21/22 Yes Default History Genericprovider PAST MEDICAL HISTORY: Past Medical History: Diagnosis [...] No Review of Systems Review of Systems Musculoskeletal: Positive for back pain. Physical Exam Filed Vitals: 07/22/23 1740 BP: (!) 166/98 Pulse: 79 Resp: 18 Temp: 98 ??F (36.7 ??C) TempSrc: Temporal SpO2: 100% Weight: 88.1 kg (194 lb 4 oz) Height: 1.575 m (5' 2 ) Physical Exam Constitutional: General: She is not in acute distress. Appearance: She is not ill-appearing. Musculoskeletal: General: Tenderness (midline lumbar spine tenderness, there is some paraspinal tenderness bilaterally) present. Skin: Findings: No erythema. Neurological: General: No focal deficit present. Diagnostic Studies / Procedures LABORATORY STUDIES: No results found for this visit on 07/22/23. IMAGING STUDIES No orders to display ED Course / Medical Decision Making History Source: patient External records reviewed: none Discussion with external provider: multiple previous ER visits for subjective pain complaints Social determinates of health: none Chronic illnesses impacting care: chronic back pain MDM Number of Diagnoses or Management Options Diagnosis management comments: Ddx: chronic pain, muscle spasm Patient presents with chronic back pain, has been recently referred to pain management for MRI findings of spinal stenosis, DDD, arthritis. From what she has told me about her recently MRI there is nothing acutely surgical and nothing which would cause her point tenderness in the lumbar spine. She cannot take NSAIDs, cannot increase her tylenol, is refusing increased doses of prednisone. I have offered her a muscle relaxant and lidocaine patch and Rx for same. After I left the room she told thenurse that lidocaine patches never help, though she told me she hadn't used one for this pain this week, and that she has had morphine and dilaudid in the past for her frequent headaches and that often helps her low back pain. Opiates are not indicated for non-traumatic back pain, particularly chronic back pain, and I will not be giving any today either in the ER or by prescription. Risk of Complications, Morbidity, and/or Mortality Presenting problems: low Diagnostic procedures: minimal Management options: minimal Patient Progress Patient progress: stable Tests considered and not ordered: none Medications baclofen (LIORESAL) tablet 10 mg (has no administration in time range) lidocaine 4 % patch 1 patch (has no administration in time range) SNOMED CT(R) 1. Chronic midline low back pain without sciatica CHRONIC LOW BACK PAIN Current Discharge Medication List START taking these medications Details baclofen (LIORESAL) 10 MG tablet Take 1 tablet (10 mg total) by mouth 3 (three) times daily. Qty: 15 tablet, Refills: 0 Class: Eprescribe Pharmacy: [id number] - [place], [place] - [address] AT [facility] & [address] [place] [address], (Ph #: [phone]) Disposition: Discharge Follow-Up: Hermes Ramirez III, MD [address] [place] [address] [facility] [address] As needed Chuckie Arana MD 07/22/2023 5:58 PM Chuckie Arana MD 07/22/23 [id number] * Shea Galvez RN - 07/22/2023 5:39 PM CDT Pt here with back pain. An MRI completed this week shows Spinal stenosis/arthritis. Pt is being referred to pain management. Due to history of liver and kidney transplant, is limited on tylenol intake. Pt reports she has reached her max dose today and pain continues at 8/10. documented in this encounter Plan of Treatment Not on file documented as of this encounter Visit Diagnoses Diagnosis Chronic midline low back pain without sciatica- Primary documented in this encounter Administered Medications Inactive Administered Medications - up to 3 most recent administrations Medication Order MAR Action Action Date Dose Rate Site baclofen (LIORESAL) tablet 10 mg 10 mg, Oral, Once, 1 dose, On 07/22/23 at 1800 Given 07/22/2023 6:02 PM CDT 10 mg documented in this encounter Active and Recently Administered Medications Times are shown in CDT. Scheduled Medication Order 07/20/2023 07/21/2023 07/22/2023 baclofen (LIORESAL) tablet 10 mg (COMPLETED) 10 mg, Oral, Once, 1 dose, On 07/22/23 at 1800 1802 (Given - Provid er: Marlys Sanders RN) lidocaine 4 % patch 1 patch 1 patch, Transdermal, Administer over 12 Hours, Once, 1 dose, On 07/22/23 at 1800 1802 (Not Given - Pr ovider: Marlys Sanders RN - Reason: Patient/family declined - Comment: pt refused patch after package was opened. package discarded in trash.) documented in this encounter Care Teams Air Conditioning Specialist Relationship Specialty Start Date End Date Hermes Ramirez III, MD [address] [address] PCP - General FAMILY PRACTICE 06/20/17 documented as of this encounter
--- OUTSIDE RECORDS SUMMARY | 2024-03-20 11:51 | XMS_ITS | Encounter Summary ---
Author Organization [facility] Address [address] [place] [address]. [place], [place] [id number] [place] [id number] Care Team Providers Care Registered Nurse Supervisor Name Role Phone Ashley ZUNIGA MD, Hermes Perez Primary Care Provid er Reason for Visit * Reason Comments Headache Recurrent Or Know Dx Migraine Encounter Details Date Type Department Care Team (Late st Contact Info) Description 12/08/2023 10:47 PM CDT - 12/09/2023 Emergency [facility] Emergency [address] [place] [address] Cynthia Tejada, CHANGE CONTROL COORDINATOR [address] [place] [address] Headache Recurrent Or Know Dx Migraine Discharge Disposition: Home or Self Care (Routine Discharge) Social History Tobacco Use Types Packs/Day Years Used Date Smoking Tobacco: Every Day Cigarettes 0.5 15 Smokeless Tobacco: Never Alcohol Use Standard Drinks/Week Comments No 0 (1 standard drink = 0.6 oz pur e alcohol) Comments No Sex and Gender Information Value Date Recorded Sex Assigned at Not on file 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 Gender Identity Not on file Sexual Orientation Not on file documented as of this encounter Last Filed Vital Signs Vital Sign Reading Time Taken Comments Blood Pressure 143/82 12/08/2023 10:42 PM CDT Pulse 82 12/08/2023 10:42 PM CDT Temperature 36.7 ??C (98 ??F) 12/08/2023 10:42 PM CDT Respiratory Rate 21 12/08/2023 10:42 PM CDT Oxygen Saturation 100% 12/08/2023 10:42 PM CDT Inhaled Oxygen Concentration - - Weight 89.9 kg (198 lb 3.1 oz) 12/08/2023 10:42 PM CDT Height 157.5 cm (5' 2 ) 12/08/2023 10:42 PM CDT Body Mass Index 36.25 12/08/2023 10:42 PM CDT documented in this encounter Discharge Instructions * Attachments The following attachments cannot be sent through Care Everywhere. 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 She has a history of migraines and is only allotted 1000 mg of Tylenol per day due to hercomplicated liver history and cannot take NSAIDs due to her history of renal transplant. She reports that she takes Fioricet but it has not been helping. She reports this has been her typical migraine pain and is not experiencing any abnormal symptoms. She does note that she is here with her brother who was a trauma today and suffered significant injuries, and she believes that her symptoms were exacerbated by stress Medical History ALLERGIES: Review of patient's allergies [...] Systems Review of Systems Constitutional: Negative for chills, diaphoresis, fatigue and fever. HENT: Negative for congestion, dental problem, ear pain, facial swelling, sinus pressure and sinus pain. Eyes: Positive for photophobia. Negative for pain and visual disturbance. Respiratory: Negative for cough and shortness of breath. Gastrointestinal: Positive for nausea. Negative for vomiting. Musculoskeletal: Negative for neck pain and neck stiffness. Neurological: Positive for headaches. Negative for tremors, seizures, facial asymmetry, speech difficulty and numbness. Psychiatric/Behavioral: Negative for confusion. All other systems reviewed and are negative. Physical Exam Filed Vitals: 12/08/23 2242 BP: (!) 143/82 Pulse: 82 Resp: 21 Temp: 98 ??F (36.7 ??C) SpO2: 100% Weight: 89.9 kg (198 lb 3.1 oz) Height: 1.575 m (5' 2 ) Physical Exam Vitals and nursing note reviewed. Constitutional: General: She is not in acute distress. Appearance: Normal appearance. She is not ill-appearing, toxic-appearing or diaphoretic. HENT: Right Ear: Tympanic membrane and ear canal normal. Left Ear: Tympanic membrane and ear canal normal. Nose: Nose normal. Mouth/Throat: Mouth: Mucous membranes are moist. Eyes: General: No visual field deficit. Extraocular Movements: Extraocular movements intact. Conjunctiva/sclera: Conjunctivae normal. Pupils: Pupils are equal, round, and reactive to light. Cardiovascular: Rate and Rhythm: Normal rate. Pulses: Normal pulses. Heart sounds: Normal heart sounds. Pulmonary: Effort: Pulmonary effort is normal. Breath sounds: Normal breath sounds. Musculoskeletal: General: Normal range of motion. Cervical back: Normal range of motion and neck supple. No rigidity or tenderness. No spinous process tenderness. Skin: General: Skin is warm and dry. Capillary Refill: Capillary refill takes less than 2 seconds. Neurological: General: No focal deficit present. Mental Status: She is alert and oriented to person, place, and time. Mental status is at baseline. GCS: GCS eye subscore is 4. GCS verbal subscore is 5. GCS motor subscore is 6. Cranial Nerves: No cranial nerve deficit, dysarthria or facial asymmetry. Sensory: Sensation is intact. Motor: No weakness. Coordination: Coordination normal. Gait: Gait normal. Psychiatric: Mood and Affect: Mood normal. Behavior: Behavior normal. Thought Content: Thought content normal. Diagnostic Studies / Procedures ELECTROCARDIOGRAMS: No results found for this visit on 12/08/23. LABORATORY STUDIES: No results found for this visit on 12/08/23. IMAGING STUDIES No orders to display ED Course / Medical Decision Making Medical Decision Making This patient presents with a headache most consistent with her chronic migraine. No headache red flags. Neurologic exam without evidence of meningismus, AMS, focal neurologic findings so doubt meningitis, encephalitis, stroke. Presentation not consistent with acute intracranial bleed to include SAH(lack of risk factors, headache history). No history of trauma so doubt ICH. Given history and physical temporal arteritis unlikely, as is acute angle closure glaucoma. Doubt carotid artery dissection given no focal neuro deficits, no neck trauma or recent neck strain. Patient with no signs of increased intracranial pressure or weight loss and history and physical suggest more benign headache so less likely mass effect in brain from tumor or abscess or idiopathic intracranial hypertension. Reviewed patient's medical history along with the ED notes and notes from Lui Franks, 10/2023 which more summarize her medical history Problems Addressed: Kidney transplant recipient ([facility]): chronic illness or injury Liver transplant recipient ([facility]): chronic illness or injury Migraine: chronic illness or injury with exacerbation, progression, or side effects of treatment Amount and/or Complexity of Data Reviewed External Data Reviewed: notes. Risk Parenteral controlled substances. Risk Details: Hydromorphone ED Course as of 12/08/232358Dec 08, [id number] Patient states that she feels significantly improved at this time, is requesting discharge. I provided definitive care for this patient. Discussed all results and incidental findings with patient. Supportive measures discussed. Signs and symptoms to monitor for, reasons to return the emergency department, discharge, and follow-up instructions given to the patient. Patient verbalized unders tanding, denies further questions, and agrees with plan. Vital signs normal at discharge, cosigner will be Dr. Denton [AP] ED Course User Index [AP] Cynthia Tejada APRN Clinical Impression Migraine (Primary) Liver transplant recipient ([facility]) Kidney transplant recipient ([facility]) Disposition: Discharge Cynthia Tejada APRN 12/08/232358 Cosigned by Trae Denton MD at 12/09/2023 5:49 AM CDT * Jatinder Barraza RN - 12/08/2023 10:42 PM CDT Pt arrives ambulatory with complaints of a migraine. Pt has a history of same and took some tylenolwithout relief. documented in this encounter Plan of Treatment Not on file documented as of this encounter Visit Diagnoses Diagnosis Migraine- Primary Migraine, unspecified, without mention of intractable migraine without mention of status migrainosus Liver transplant recipient ([facility]) Kidney transplant recipient ([facility]) documented in this encounter Administered Medications Inactive Administered Medications - up to 3 most recent administrations Medication Order MAR Action Action Date Dose Rate Site diphenhydrAMINE (BENADRYL) injection 25 mg 25 mg, Intravenous, Once, 1 dose, On Mon12/08/23 at 2315, For IV administration, give no faster than 25 mg/min. Given 12/08/2023 11:30 PM CDT 25 mg diphenhydrAMINE (BENADRYL) injection 25 mg 25 mg, Intravenous, Once, 1 dose, On 12/09/23 at 0000, For IV administration, give no faster than 25 mg/min. Given 12/08/2023 11:56 PM CDT 25 mg HYDROmorphone (DILAUDID) injection 1 mg 1 mg, Intravenous, Once, 1 dose, On Mon12/08/23 at 2315, Administer slowly over at least 2-3 minutes. Given 12/08/2023 11:30 PM CDT 1 mg normal saline 0.9 % flush 3-10 mL 3-10 mL, Intravenous, Every 8 hours, First dose on Mon12/08/23 at 2315, Until Discontinued Given 12/08/2023 11:30 PM CDT 6 mLs normal saline 0.9 % flush 3-10 mL 3-10 mL, Intravenous, As needed, Line care, Starting on Mon12/08/23 at 2314, Until 12/09/23 at 0204 ondansetron (ZOFRAN) injection 4 mg 4 mg, Intravenous, Once, 1 dose, On Mon12/08/23 at 2315, IV push over 2-5 minutes. Given 12/08/2023 11:30 PM CDT 4 mg documented in this encounter Active and Recently Administered Medications Times are shown in CDT. Scheduled Medication Order 12/07/2023 12/08/2023 12/09/2023 diphenhydrAMINE (BENADRYL) injection 25 mg (COMPLETED) 25 mg, Intravenous, Once, 1 dose, On Mon12/08/23 at 2315, For IV administration, give no faster than 25 mg/min. 2330 (Given - Provider: Sarah Barraza RN) diphenhydrAMINE (BENADRYL) injection 25 mg (COMPLETED) 25 mg, Intravenous, Once, 1 dose, On 12/09/23 at 0000, For IV administration, give no faster than 25 mg/min. 2356 (Given - Provider: Sarah Barraza, ANSON) HYDROmorphone (DILAUDID) injection 1 mg (COMPLETED) 1 mg, Intravenous, Once, 1 dose, On Mon12/08/23 at 2315, Administer slowly over at least 2-3 minutes. 2330 (Given - Provider: Sarah Barraza, ANSON) normal saline 0.9 % flush 3-10 mL 3-10 mL, Intravenous, Every 8 hours, First dose on Mon12/08/23 at 2315, Until Discontinued 2330 (Given - Provider: Sarah Barraza, ANSON) ondansetron (ZOFRAN) injection 4 mg (COMPLETED) 4 mg, Intravenous, Once, 1 dose, On Mon12/08/23 at 2315, IV push over 2-5 minutes. 2330 (Given - Provider: Sarah Barraza RN) PRN Medication Order 12/07/2023 12/08/2023 12/09/2023 normal saline 0.9 % flush 3-10 mL 3-10 mL, Intravenous, As needed, Line care, Starting on Mon12/08/23 at 2314, Until 12/09/23 at 0204 documented in this encounter Care Teams Registered Nurse Supervisor Relationship Specialty Start Date End Date Hermes Ramirez III, MD [address] [facility] [address] [place] [address] PCP - General FAMILY PRACTICE 06/20/17 documented as of this encounter
--- OUTSIDE RECORDS SUMMARY | 2024-03-20 11:51 | XMS_ITS | Encounter Summary ---
Author Organization [facility] Address [address] [place] [address]. 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 No / Unsure 07/27/2022 7:23 PM CDT documented as of this encounter Plan of Treatment Not on file documented as of this encounter Visit Diagnoses Not on filedocumented in this encounter Care Teams Wedding Decorator Relationship Specialty Start Date End Date Hermes Ramirez III, MD [address] [facility] [address] [place] [address] PCP - General FAMILY PRACTICE 06/20/17 documented as of this encounter
--- OUTSIDE RECORDS SUMMARY | 2024-03-20 11:51 | XMS_ITS | Encounter Summary ---
Author Organization [facility] Address [address] [place] [address]. [place], [place] [id number] [place] [address] Care Team Providers Care Cow Washer Name Role Phone Ashley ZUNIGA MD, Hermes Perez Primary Care Provid er Reason for Referral * Imaging (Urgent) - New Request Specialty Diagnoses / Procedures Referred By Contac t Referred To Contact RADIOLOGY Procedures CT THOR SPINE WO CON Maria Isabel Owens NP [address] [place] [address] Phone: tel: fax: Referral ID Status Reason Start Date Expiration Date V isits Requested Visits Authorized [id number] New Request 12/22/2023 12/21/2024 1 1 * Imaging (Emergency) - New Request Specialty Diagnoses / Procedures Referred By Contac t Referred To Contact RADIOLOGY Procedures CT LUMB SPINE WO CON Maria Isabel Owens NP [address] [place] [address] Phone: tel: fax: Referral ID Status Reason Start Date Expiration Date V isits Requested Visits Authorized [id number] New Request 12/22/2023 12/21/2024 1 1 Reason for Visit * Reason Comments Fall Back Pain Hip Pain Encounter Details Date Type Department Care Team (Late st Contact Info) Description 12/22/2023 12:12 PM CDT - 12/22/2023 3:09 PM CDT Emergency [facility] [address] [place] [address] Maria Isabel Owens NP [address] [place] [address] Fall; Back Pain; Hip Pain Discharge Disposition: [...] on file 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 Gender Identity Not on file Sexual Orientation Not on file documented as of this encounter Last Filed Vital Signs Vital Sign Reading Time Taken Comments Blood Pressure 141/78 12/22/2023 2:42 PM CDT Pulse 77 12/22/2023 2:42 PM CDT Temperature 37.2 ??C (98.9 ??F) 12/22/2023 12:09 PM C DT Respiratory Rate 14 12/22/2023 12:09 PM CDT Oxygen Saturation 98% 12/22/2023 2:42 PM CDT Inhaled Oxygen Concentration - - Weight 89.9 kg (198 lb 3.1 oz) 12/22/2023 12:09 PM CDT Height 157.5 cm (5' 2 ) 12/22/2023 12:09 PM CDT Body Mass Index 36.25 12/22/2023 12:09 PM CDT documented in this encounter Discharge Instructions * Discharge Instructions* Maria Isabel Owens NP - 12/22/2023 2:58 PM CDT Continue tylenol for pain. Follow-up with your primary care doctor for reevaluation as needed. Return to the emergency department for any new or worsening concerns. * Attachments The following attachments cannot be sent through Care Everywhere. * Contusion Discharge Instructions (Norwegian) * Muscle and Bone Pain Discharge Instructions (Norwegian) documented in this encounter Medications at Time [...] as of this encounter ED Notes * Maria Isabel Owens, WOLF HUNTER - 12/22/2023 12:49 PM CDT Chief Complaint Chief Complaint Patient presents with Fall Back Pain Hip Pain History of Present Illness 43-year-old female presents to the emergency department with complaints of back pain, bilateral knee pain, hip pain after mechanical fall today. Patient states while she was at work today, she was walking outside and the wind blew her hair and her face causing her to trip on a curb. She states she fell onto a concrete surface. She did not strike her head, no loss of consciousness. No neck pain. Justus gomez is complaining of 10 out of 10 back, bilateral knee and hip pain. She denies taking anything for pain. She denies chance of . No other complaints endorsed by patient while in emergency department today. Medical History ALLERGIES: Review of patient's allergies [...] Review of Systems Review of Systems Constitutional: Negative. HENT: Negative. Eyes: Negative. Respiratory: Negative. Cardiovascular: Negative. Gastrointestinal: Negative. Endocrine: Negative. Genitourinary: Negative. Musculoskeletal: Positive for arthralgias and back pain. Skin: Negative. Allergic/Immunologic: Negative. Neurological: Negative. Hematological: Negative. Psychiatric/Behavioral: Negative. Physical Exam Filed Vitals: 12/22/23 1209 12/22/23 1442 BP: (!) 144/85 (!) 141/78 Pulse: 78 77 Resp: 14 Temp: 98.9 ??F (37.2 ??C) TempSrc: Oral SpO2: 100% 98% Weight: 89.9 kg (198 lb 3.1 oz) Height: 1.575 m (5' 2 ) Physical Exam Vitals and nursing note reviewed. Constitutional: General: She is not in acute distress. Appearance: Normal appearance. She is well-developed. She is not ill-appearing, toxic-appearing or diaphoretic. HENT: Head: Normocephalic and atraumatic. Mouth/Throat: Mouth: Mucous membranes are moist. Pharynx: Oropharynx is clear. No oropharyngeal exudate or posterior oropharyngeal erythema. Eyes: General: No scleral icterus. Extraocular Movements: Extraocular movements intact. Conjunctiva/sclera: Conjunctivae normal. Pupils: Pupils are equal, round, and reactive to light. Neck: Thyroid: No thyromegaly. Cardiovascular: Rate and Rhythm: Normal rate and regular rhythm. Pulses: Normal pulses. Dorsalis pedis pulses are 2+ on the right side and 2+ on the left side. Heart sounds: Normal heart sounds. No murmur heard. No friction rub. No gallop. Pulmonary: Effort: Pulmonary effort is normal. No respiratory distress. Breath sounds: Normal breath sounds. No wheezing. Abdominal: General: Bowel sounds are normal. There is no distension. Palpations: Abdomen is soft. There is no mass. Tenderness: There is no abdominal tenderness. There is no right CVA tenderness, left CVA tenderness, guarding or rebound. Hernia: No hernia is present. Musculoskeletal: General: Tenderness (Tenderness to palpation present to midline thoracic and lumbar spine; no external signs of trauma, no step-offs or deformities) present. No deformity or signs of injury. Cervical back: Neck supple. No rigidity or tenderness. Comments: Tenderness to palpation present to anterolateral left hip, bilateral knees; faint contusions present to anterior bilateral knees; no deformities, CMS intact Lymphadenopathy: Cervical: No cervical adenopathy. Skin: General: Skin is warm and dry. Capillary Refill: Capillary refill takes less than 2 seconds. Neurological: General: No focal deficit present. Mental Status: She is alert and oriented to person, place, and time. Mental status is at baseline. Cranial Nerves: No cranial nerve deficit. Sensory: No sensory deficit. Motor: No weakness. Coordination: Coordination normal. Gait: Gait normal. Deep Tendon Reflexes: Reflexes normal. Psychiatric: Mood and Affect: Mood normal. Behavior: Behavior normal. Thought Content: Thought content normal. Judgment: Judgment normal. Diagnostic Studies / Procedures ELECTROCARDIOGRAMS: No results found for this visit on 12/22/23. LABORATORY STUDIES: No results found for this visit on 12/22/23. IMAGING STUDIES CT LUMB SPINE WO CON Final Result by User, [id number] (12/21 1431) [address] [address] [address] of the LUMBAR SPINE without contrast. 12/22/2023 1:27 PM History: Back pain after falling. Comparison: X-ray lumbar spine 02/12/2019 Technique: Images of the lumbar spine were obtained without the administration of intravenous contrast. Coronal and sagittal reformats were constructed. A dose lowering technique was used [...] at L4-5 with mild narrowing bilaterally at L5-S1. Limited noncontrast images of the visualized soft tissues reveal no acute appearing abnormality. Impression: 1. No evidence of acute fracture or traumatic malalignment of the lumbar spine. 2. Multilevel spondylosis as described above. Ordered By: MARIA ISABEL OWENS Interpreted By: Marlys Jovel MD, 12/22/2023 2:[address] THOR SPINE WO CON Final Result by User, [id number] (12/22 1419) [address] [address] [address] of the THORACIC SPINE without contrast. History: Back pain after falling Comparison: None. Technique: Images of the thoracic spine were obtained without the administration of intravenous contrast. Coronal and sagittal reformats were constructed. A dose lowering technique was used [...] tissues reveal no acute appearing abnormality. Impression: No evidence of acute fracture or traumatic malalignment of the thoracic spine. Ordered By: MARIA ISABEL OWENS Interpreted By: Marlys Jovel MD, 12/22/2023 2:16 PM XR KNEE JULITO 3V Final Result by User, [id number] (12/21 7728) [address] [address] EXAMINATION: XR KNEE JULITO 3V HISTORY: BILATERAL KNEE PAIN AFTER FALL COMPARISON: No comparison. TECHNIQUE: 3 views of the bilateral knees. FINDINGS: No fracture or dislocation is seen bilaterally. Joint spaces are normal bilaterally. No destructive bone lesions. No joint effusion or soft tissue abnormality. IMPRESSION: No acute osseous abnormality identified. Referred By: Interpreted By: Gabriel Alberto MD, 12/22/2023 1:15 PM XR PELVIS 1 OR 2 VIEWS Final Result by User, [id number] (12/21 1327) [address] [address] Examination: XR PELVIS 1 OR 2 VIEWS Exam time: 12/22/2023 12:56 PM Clinical history: Pain after fall today. Comparison: None. Technique: AP views of the pelvis with the hips in neutral and frog-leg lateral positioning. Findings: The lower sacrum and coccyx are partially obscured due to overlying bowel contents. No evidence is seen to suggest disruption of the pelvic brim. No radiographic evidence is seen to suggest acute fracture or malalignment of the bones of the pelvis. Small calcified phleboliths are noted within the pelvis. IMPRESSION: No radiographic evidence is seen to suggest acute fracture or malalignment of the bones of the pelvis Referred By: Interpreted By: Brown Marina DO, 12/22/2023 1:15 PM ED Course / Medical Decision Making Medical Decision Making Problems Addressed: Back pain: acute illness or injury Bilateral hip pain: acute illness or injury Bilateral knee pain: acute illness or injury Fall from slip, trip, or stumble: acute illness or injury Knee contusion: self-limited or minor problem Amount and/or Complexity of Data Reviewed External Data Reviewed: notes. Details: PDMP Radiology: ordered. Decision-making details documented in ED Course. ED Course as of 01/07/24 0940 MonDec 22, 2023 1414 XR KNEE JULITO 3V IMPRESSION: No acute osseous abnormality identified. [JZ] 1414 XR PELVIS 1 OR 2 VIEWS IMPRESSION: No radiographic evidence is seen to suggest acute fracture or malalignment of the bones of the pelvis [JZ] 1445 CT THOR SPINE WO CON Impression: No evidence of acute fracture or traumatic malalignment of the thoracic spine. [JZ] 1446 CT LUMB SPINE WO CON Impression: 1. No evidence of acute fracture or traumatic malalignment of the lumbar spine. 2. Multilevel spondylosis as described above. CT of thoracic and lumbar spine as well as plain film x-rays of bilateral knees pelvis negative foracute injury which was discussed with patient. Patient initially given morphine, Skelaxin for pain.With reevaluation, she states her pain level remains significantly elevated. Patient offered [place] tablet, p.o. Valium for further pain relief but refuses and states that the only medications that work for my pain are Dilaudid or morphine. Patient informed she will not be receiving any further injectable narcotics while here. She was again offered p.o. pain medication but refused and was then discharged from the emergency department.. She was instructed to follow-up with her primary care doctorfor reevaluation as needed. [JZ] ED Course User Index [JZ] Maria Isabel Owens NP Clinical Impression Fall from slip, trip, or stumble (Primary) Back pain Bilateral knee pain Bilateral hip pain Knee contusion Disposition: Discharge Amyignlaura Menjivar Unless otherwise documented, I provided definitive care for this patient Follow up: PCP as needed Maria Isabel Owens NP 01/07/[address] Cosigned by Danish Menjivar MD at 01/08/2024 6:49 AM CDT * Makenna Silva RN - 12/22/2023 11:50 AM CDT PT ARRIVES TO TRIAGE- STATES THAT HER HAIR BLEW IN HER FACE AND SHE STEPPED UP ON A A CURB AND FELL- SHE IS C/O LOWER BACK PAIN AND R HIP PAIN. NO LOC. documented in this encounter Plan of Treatment Not on file documented as of this encounter Procedures Procedure Name Priority Date/Time Associated Diagnosis Comments CT THOR SPINE WO CON STAT 12/22/2023 1:[address] LUMB SPINE WO CON STAT 12/22/2023 1:32 PM CDT XR KNEE JULITO 3V STAT 12/22/2023 1:05 PM CDT XR PELVIS 1 OR 2 VIEWS STAT 12/22/2023 1:05 PM CDT documented in this encounter Results * CT THOR SPINE WO CON (12/22/2023 1:32 PM CDT) Anatomical Region Laterality Modality Spine Computed Tomogra phy 12/22/2023 2:16 PM CDT Impressions 12/22/2023 2:19 PM CDT Impression: No evidence of acute fracture or traumatic malalignment of the thoracic spine. Ordered By: MARIA ISABEL OWENS Interpreted By: Marlys Jovel MD, 12/22/2023 2:16 PM Narrative 12/22/2023 2:19 PM CDT [address] [address] [address] of the THORACIC SPINE without contrast. [...] Procedure Note Marlys Jovel MD - 12/22/[address] [address] [address] of the THORACIC SPINE without contrast. [...] appears to slightly narrow the spinal canal [id number] and to a lesser extent at T3-4 and T4-5. There is no severe bonyneural foraminal or spinal canal narrowing at any level. Limitednoncontrast images of the visualized soft tissues reveal no acuteappearing abnormality. Impression: No evidence of acute fracture or traumatic malalignment of the thoracicspine. Ordered By: MARIA ISABEL OWENS Interpreted By: Marlys Jovel MD, 12/22/2023 2:16 PM us Maria Isabel Owens WOLF HUNTER CT Final Resul t * CT LUMB [...] 2:20 PM Narrative 12/22/2023 2:30 PM CDT [address] [address] [address] of the LUMBAR SPINE without contrast. [...] Procedure Note Marlys Jovel MD - 12/22/2023 [facility] [address] [place], [place] [address] CT of the LUMBAR SPINE without contrast. [...] By: Marlys Jovel MD, 12/22/2023 2:20 PM Maria Isabel Owens WOLF HUNTER CT Final Resul t * XR PELVIS 1 [...] 1:15 PM Narrative 12/22/2023 1:18 PM CDT [address] [address] Examination: XR PELVIS 1 OR 2 VIEWS [...] Procedure Note Brown Marina DO - 12/22/[address] [address] Examination: XR PELVIS 1 OR 2 VIEWS [...] GENERAL IMAGING Final Resul t * XR KNEE JULITO 3V (12/22/2023 1:05 PM CDT) Anatomical Region Laterality Modality Knee Radiographic Katy ging 12/22/2023 1:15 PM CDT Impressions 12/22/2023 1:17 PM CDT IMPRESSION: No acute osseous abnormality identified. Referred By: ?? Interpreted By: Gabriel Alberto MD, 12/22/2023 1:15 PM Narrative 12/22/2023 1:17 PM CDT [address] [address] EXAMINATION: XR KNEE JULITO 3V HISTORY: BILATERAL KNEE PAIN AFTER FALL COMPARISON: No comparison. TECHNIQUE: 3 views of the bilateral knees. FINDINGS: No fracture or dislocation is seen bilaterally. Joint spaces are normal bilaterally. No destructive bone lesions. No joint effusion or soft tissue abnormality. Procedure Note Gabriel Alberto MD - 12/22/[address] [address] EXAMINATION: XR KNEE JULITO 3V HISTORY: BILATERAL [...] Owens NP GENERAL IMAGING Final Resul t documented in this encounter Visit Diagnoses Diagnosis Fall from slip, trip, or stumble- Primary Fall from other slipping, tripping, or stumbling Back pain Backache, unspecified Bilateral knee pain Pain in joint, lower leg Bilateral hip pain Pain in joint, pelvic region and thigh Knee contusion Contusion of knee documented in this encounter Administered Medications Inactive Administered Medications - up to 3 most recent administrations Medication Order MAR Action Action Date Dose Rate Site metaxalone (SKELAXIN) tablet 800 mg 800 mg, Oral, Once, 1 dose, On Mon12/22/23 at 1300 Given 12/22/2023 1:08 PM CDT 800 mg morphine injection 4 mg 4 mg, Intramuscular, Once, 1 dose, On Mon12/22/23 at 1300 Given 12/22/2023 1:08 PM CDT 4 mg Left Deltoid documented in this encounter Active and Recently Administered Medications Times are shown in CDT. Scheduled Medication Order 12/20/2023 12/21/2023 12/22/2023 diazePAM (VALIUM) tablet 5 mg 5 mg, Oral, Once, 1 dose, On Mon12/22/23 at 1500 1501 (Not Given - Pr ovider: Lillian Russell RN - Reason: Patient/family declined) HYDROcodone-acetaminophen (NORCO) 7.5-325 MG tablet 1 tablet 1 tablet, Oral, Once, 1 dose, On Mon12/22/23 at 1430, Maximum dose of acetaminophen is 4000 mg from all sources in 24 hours. 1442 (Not Given - Pr ovider: Paris Neevs RN - Reason: Patient/family declined) metaxalone (SKELAXIN) tablet 800 mg (COMPLETED) 800 mg, Oral, Once, 1 dose, On Mon12/22/23 at 1300 1308 (Given - Provid er: Lillian Russell RN) morphine injection 4 mg (COMPLETED) 4 mg, Intramuscular, Once, 1 dose, On Mon12/22/23 at 1300 1308 (Given - Provid er: Lillian Russell RN) documented in this encounter Care Teams Cow Washer Relationship Specialty Start Date End Date Hermes Ramirez III, MD [address] [address] PCP - General FAMILY PRACTICE 06/20/17 documented as of this encounter
--- OUTSIDE RECORDS SUMMARY | 2024-03-20 11:51 | XMS_ITS | Encounter Summary ---
Author Organization [facility] Address [address] [place] [address]. 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 Gender Identity Not on file Sexual Orientation Not on file documented as of this encounter Last Filed Vital Signs Vital Sign Reading Time Taken Comments Blood Pressure 128/73 12/09/2023 5:38 AM CDT Pulse 71 12/09/2023 5:38 AM CDT Temperature 36.8 ??C (98.2 ??F) 12/09/2023 5:38 AM CD T Respiratory Rate 16 12/09/2023 6:32 AM CDT Oxygen Saturation 100% 12/09/2023 5:38 AM CDT Inhaled Oxygen Concentration - - Weight 90.4 kg (199 lb 4.7 oz) 12/09/2023 5:38 A M CDT Height 157.5 cm (5' 2 ) 12/09/2023 5:38 AM CDT Body Mass Index 36.45 12/09/2023 5:38 AM CDT documented in this encounter Discharge Instructions * Attachments The following attachments cannot be sent through Care Everywhere. 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 She has a history of migraines and is only allotted 1000 mg of Tylenol per day due to her complicated liver history and cannot take NSAIDs due [...] believes that her symptoms were exacerbated by stress. She was treated in the ED for this earlier, expressed resolution of her symptoms, however at this time she states her pain has returned. Medical History ALLERGIES: Review of patient's allergies [...] and are negative. Physical Exam Filed Vitals: 12/09/23 0538 12/09/23 0632 BP: 128/73 Pulse: 71 Resp: 16 Temp: 98.2 ??F (36.8 ??C) TempSrc: Oral SpO2: 100% Weight: 90.4 kg (199 lb 4.7 oz) Height: 1.575 m (5' 2 ) Physical Exam Vitals and nursing note reviewed. Constitutional: General: She is not in acute distress. Appearance: Normal appearance. She is not ill-appearing, toxic-appearing or diaphoretic. HENT: Right Ear: Tympanic membrane and ear canal normal. Left Ear: Tympanic membrane and ear canal normal. Nose: Nose normal. Mouth/Throat: Mouth: Mucous membranes are moist. No angioedema. Eyes: General: No visual field deficit. Extraocular [...] Capillary refill takes less than 2 seconds. Comments: Erythematous rash around the upper chest/neck region with small papular lesions. Neurological: General: No focal deficit present. Mental [...] No results found for this visit on 12/09/23. LABORATORY STUDIES: No results found for this visit on 12/09/23. IMAGING STUDIES No orders to display ED Course / Medical Decision Making Medical Decision Making Discussion with patient that I do not feel comfortable repeating IV narcotic pain medication, afterprevious visit combined with chart review from previous ED visits, will give p.o. Dilaudid as she states that she does have an allergy to oxycodone which is itching, she cannot have any more Tylenol due to her liver condition, and she cannot have an due to her kidney condition. Discussed with patient I also do not recall doing IV Benadryl at this time either, will give p.o. Benadryl. Encourage patient to attempt her Fioricet for migraine relief, and utilize her lorazepam for anxiety relief. Problems Addressed: Migraine: chronic illness or injury with exacerbation, progression, or side effects of treatment ED Course as of 12/09/23 0658 Sat Dec 09, 2023 0656 Patient refused p.o. Dilaudid, states that it makes her itchy. Discussed with patient that I will not be giving parental controlled substances. Patient left I provided definitive care for this patient. [...] Cynthia Tejada APRN Clinical Impression Migraine (Primary) Disposition: Discharge Cynthia Tejada APRN 12/09/23 0658 Cosigned by Trae Denton MD at 12/13/2023 12:07 PM CDT * Anh Nicolas RN - 12/09/2023 5:38 AM CDT Pt arrives with c/o of headache. documented in this encounter Plan of Treatment Not on file documented as of this encounter Visit Diagnoses Diagnosis Migraine- Primary Migraine, unspecified, without mention of intractable migraine without mention of status migrainosus documented in this encounter Administered Medications Inactive Administered Medications - up to 3 most recent administrations Medication Order MAR Action Action Date Dose Rate Site diphenhydrAMINE (BENADRYL) capsule 25 mg 25 mg, Oral, Once, 1 dose, On 12/09/23 at 0600 Given 12/09/2023 6:23 AM CDT 25 mg documented in this encounter Active and Recently Administered Medications Times are shown in CDT. Scheduled Medication Order 12/07/2023 12/08/2023 12/09/2023 diphenhydrAMINE (BENADRYL) capsule 25 mg (COMPLETED) 25 mg, Oral, Once, 1 dose, On 12/09/23 at 0600 0623 (Given - Provid er: Magan Maddox RN) HYDROmorphone (DILAUDID) tablet 2 mg 2 mg, Oral, Once, 1 dose, On 12/09/23 at 0600 0623 (Not Given - Pr ovider: Magan Maddox RN - Reason: Patient/family declined) documented in this encounter Care Teams Outside Cutter Relationship Specialty Start Date End Date Hermes Ramirez III, MD [address] [facility] [address] [place] [address] PCP - General FAMILY PRACTICE 06/20/17 documented as of this encounter
--- OUTSIDE RECORDS SUMMARY | 2024-03-20 11:51 | XMS_ITS | Encounter Summary ---
Author Organization [facility] Address [address] [place] [address]. [place], [place] [id number] [place] [id number] Care Team Providers Care Marketing Ambassador Name Role Phone Ashley ZUNIGA MD, Hermes Perez Primary Care Provid er Reason for Referral * Imaging (Routine) - Authorized Specialty Diagnoses / Procedures Referred By Contgilmar t Referred To Contact RADIOLOGY Diagnoses Elevated d-dimer Procedures NM LUNG SCAN VENT+PERF Dulce Delaney DO [address] [place] [address] Phone: tel: fax: Referral ID Status Reason Start Date Expiration Date V isits Requested Visits Authorized [id number] Authorized 02/12/2024 03/28/2024 1 1 AND MAXILLOFACIAL PATHOLOGIST Reason for Visit * Reason Comments Shortness Of Breath Encounter Details Date Type Department Care Team (Late st Contact Info) Description 02/10/2024 3:24 PM ORAL AND MAXILLOFACIAL PATHOLOGIST - 02/10/2024 9:22 PM ORAL AND MAXILLOFACIAL PATHOLOGIST Emergency [facility] Emergency [address] [place] [address] Danish Menjivar MD [address] [place] [address] Shortness Of Breath Discharge Disposition: Home or [...] on file Legal Sex Female 9:15 PM ORAL AND MAXILLOFACIAL PATHOLOGIST Gender Identity Not on file Sexual Orientation Not on file documented as of this encounter Last Filed Vital Signs Vital Sign Reading Time Taken Comments Blood Pressure 126/79 02/10/2024 9:10 PM ORAL AND MAXILLOFACIAL PATHOLOGIST Pulse 99 02/10/2024 9:10 PM ORAL AND MAXILLOFACIAL PATHOLOGIST Temperature 36.8 ??C (98.3 ??F) 02/10/2024 2:52 PM CS T Respiratory Rate 21 02/10/2024 9:10 PM ORAL AND MAXILLOFACIAL PATHOLOGIST Oxygen Saturation 95% 02/10/2024 9:10 PM ORAL AND MAXILLOFACIAL PATHOLOGIST Inhaled Oxygen Concentration - - Weight 90.9 kg (200 lb 6.4 oz) 02/10/2024 2:52 P M ORAL AND MAXILLOFACIAL PATHOLOGIST Height 157.5 cm (5' 2 ) 02/10/2024 2:52 PM ORAL AND MAXILLOFACIAL PATHOLOGIST Body Mass Index 36.65 02/10/2024 2:52 PM ORAL AND MAXILLOFACIAL PATHOLOGIST documented in this encounter Discharge Instructions * Discharge Instructions* Dulce Delaney DO - 02/10/2024 5:46 PM ORAL AND MAXILLOFACIAL PATHOLOGIST PLEASE CALL YOUR PCP NEXT BUSINESS DAY WITH UPDATE AND PROGRESS REPORT AND TO SCHEDULE FOLLOW UP APPOINTMENT. PLEASE RETURN TO THE ER IF YOU GET WORSE OR DEVELOP OTHER CONCERNING SYMPTOMS. Use Lovenox as directed to protect against possible pulmonary embolus until you are able to get an outpatient VQ scan on Monday AND MAXILLOFACIAL PATHOLOGIST AND MAXILLOFACIAL PATHOLOGIST AND MAXILLOFACIAL PATHOLOGIST documented in this encounter Medications at Time [...] by mouth 2 (two) times daily. 02/20/2024 enoxaparin (LOVENOX) 100 mg/mL syringe Inject 1 mL (100 mg total) into the skin daily. 10 mL 02/10/2024 02/20/2024 venlafaxine (EFFEXOR) 37.5 MG tablet Take 1 tablet (37.5 mg total) by mouth. 04/21/2022 02/20/2024 documented as of this encounter ED Notes * Dulce Delaney, - 02/10/2024 3:47 PM CST Chief Complaint Chief Complaint Patient presents with Shortness Of Breath History of Present Illness 43-year-old female presents to the emergency department with complaints of cough congestion headache generalized malaise which has been progressive for approximately 1 week. The patient states that she was in [facility] hospital and received a workup which showed she was positive for rhinovirus as well as having an elevated D-dimer. The patient cannot have contrast studies due to renal transplant. The patient could not get a V/Q there so she came here. Patient states she is having upper respiratory congestion cough shortness of breath. States she has been having fevers and chills. Medical History ALLERGIES: Review of patient's allergies [...] Start Date End Date Taking? Authorizing Provider enoxaparin (LOVENOX) 100 mg/mL syringe Inject 1 mL (100 mg total) into the skin daily. 02/10/24 Stephen Menjivar MD amLODIPine (NORVASC) 10 MG tablet Take 1 [...] No Review of Systems Review of Systems A 10 point review of systems was obtained and negative or noncontributory to the patient's chief complaint except as noted in hpi Physical Exam Filed Vitals: 02/10/24 1747 02/10/24 1846 02/10/24 1957 02/10/241958 BP: 122/76 129/78 Pulse: (!) 118 (!) 113 (!) 104 (!) 103 Resp: 21 23 22 (!) 32 Temp: TempSrc: SpO2: 99% 98% 92% 94% Weight: Height: Physical Exam Constitutional and psychiatric: Patient is well-nourished well-developed alert and nontoxic in appearance. Eyes: Inspection of conjunctivae and lids reveal no acute abnormality pupils are equal and reactiveextraocular muscles are intact. Neck: Supple no masses or tenderness are appreciated. Trachea is midline no JVD. Respiratory: Normal respiratory effort auscultation reveals normal breath sounds bilaterally. Cardiovascular: Regular rate and rhythm, no abnormal sounds or murmurs, no chest wall tenderness topalpation, normal carotid radial and pedal pulses, no acute abnormality of the abdominal aorta extremities reveal no nontraumatic edema. Gastrointestinal: Abdomen is soft and nondistended. No hepatosplenomegaly or hernias noted. Musculoskeletal: Patient has full range of motion, stability, muscle strength, and tone of upper and lower extremities. Skin: No acute rashes lesions or induration noted. Neurological: Cranial nerves II through XII are grossly intact. Normal sensation. Diagnostic Studies / Procedures ELECTROCARDIOGRAMS: No results found for this visit on 02/10/24. LABORATORY STUDIES: Results for orders placed or performed during the hospital encounter of 02/10/24 CBC W/DIFF AUTOMATED Result Value Ref Range WBC 13.31 (H) 4.00 - 10.80 x10'3/uL RBC 3.54 (L) 4.10 - 5.40 x10'6/uL HGB 12.6 12.0 - 16.0 G/DL HCT 36.0 36.0 - 47.0 % MCV 101.7 (H) 78.0 - 100.0 FL MCH 35.6 (H) 27.0 - 31.0 PG MCHC 35.0 33.0 - 36.0 G/DL RDW 12.8 11.5 - 14.5 % PLT 107 (L) 150 - 350 x10'3/uL MPV 11.2 (H) 7.4 - 10.4 FL DIFFERENTIAL TYPE AUTOMATED DIFFERENTIAL SEG NEUTROPHILS 93.1 % LYMPHOCYTES 1.9 % MONOCYTES 3.9 % EOSINOPHILS 0.0 % BASOPHILS 0.2 % IMMATURE GRANS % 0.9 % ABS. NEUTROPHILS 12.40 (H) 1.60 - 8.30 x10'3/uL ABS. LYMPHOCYTES 0.25 (L) 0.80 - 4.70 x10'3/uL ABS. MONOCYTES 0.52 0.00 - 1.50 x10'3/uL ABS. EOSINOPHILS 0.00 0.00 - 0.40 x10'3/uL ABS. BASOPHILS 0.02 0.00 - 0.20 x10'3/uL ABS. IMMATURE GRANULOCYTES 0.12 (H) 0.00 - 0.03 x10'3/uL ABS. NUCLEATED RBC'S 0.00 0.00 - 0.01 x10'3/uL NRBC % 0.0 % BASIC METABOLIC PANEL Result Value Ref Range SODIUM S/P/B 140 136 - 145 MMOL/L POTASSIUM S/P/B 4.9 3.5 - 5.1 MMOL/L CHLORIDE S/P/B 111 97 - 115 MMOL/L CO2 21.9 21.0 - 32.0 MMOL/L GLUCOSE 231 (H) 74 - 106 MG/DL BUN 25 (H) 7 - 18 MG/DL CREATININE S/P/B 1.94 (H) 0.55 - 1.02 MG/DL CALCIUM S/P/B 9.2 8.5 - 10.1 MG/DL ANION GAP 7.1 2.0 - 10.0 MMOL/L OSMOLALITY (CALC) 302 MOSM/KG GFR ESTIMATE 33 (L) >90 ML/MIN/1.73 M2 GFR NOTES GFR REFERENCES: LACTIC ACID W REFLEX (SEPSIS) Result Value Ref Range LACTIC ACID VENOUS 2.7 (H) 0.4 - 2.0 MMOL/L LACTIC ACID W REFLEX (SEPSIS) Result Value Ref Range LACTIC ACID VENOUS 1.4 0.4 - 2.0 MMOL/L BLOOD CULTURE #1 Specimen: BLOOD Result Value Ref Range SPEC DESCRIPTION BLOOD SPECIAL REQUESTS NO SPECIAL REQUEST CULTURE RESULT NO GROWTH <24 HRS IMAGING STUDIES XR CHEST PORTABLE Final Result by User, [id number] (02/09 9485) [facility] [address] [place], [place] [address] Exam: XR CHEST PORTABLE Date: 02/10/2024 3:57 PM Comparison: CT thoracic spine 12/22/2023 and chest radiograph 03/30/2020 and 04/02/2017 Technique: AP view the chest History: Shortness of breath. Cough. Findings: Cardiomediastinal silhouette is mildly prominent but still within normal limits. No pneumothorax or sizable pleural effusion. No consolidations. Impression: No acute pulmonary process. Dictated By: Allen Woods MD on 02/10/2024 4:02 PM The attending radiologist has reviewed the image(s) and agrees with the content of this report. Ordered By: DANISH MENJIVAR Interpreted By: Allen Woods MD, 02/10/2024 4:02 PM NM LUNG SCAN QUANTITIVE WO VENT (Results Pending) NM LUNG SCAN VENT+PERF (Results Pending) ED Course / Medical Decision Making I have very low suspicion for thromboembolism will see if I can get a VQ scan if not will send homewith several days worth of Lovenox until she can get into her doctor for an outpatient VQ scan. I suspect that her symptoms are secondary to a viral syndrome will repeat CBC and a lactate to rule outsepsis and need for admission. [facility] ED Course as of 02/10/242115 Sat Feb 10, [id number] Chest x-ray negative [EM] 174 CREATININE S/P/B(!): 1.94 Improved from previous [EM] 1748 WBC(!): 13.31 [EM] 1748 LACTIC ACID VENOUS(!): 2.7 Will give IV fluids and repeat [EM] 182 Patient was given morphine for her back pain and headache and myalgia which did not help. She states that generally she needs Dilaudid so we will go ahead and give Dilaudid as well. She has coarse breath sounds currently with some expiratory wheeze even after her albuterol 1 hour neb. Will give a DuoNeb. Of note chest x-ray is clear with no evidence of pneumonia such the most this is bronchitis/reactive airway disease [EM] 1921 Patient complains of itchiness after Dilaudid. Will give her p.o. Benadryl to avoid the IV effect [EM] 2029 LACTIC ACID VENOUS: 1.4 Improved with IVF [EM] 2114 Patient is ready to go but requests additional medicines either for pain or anxiety. I feel she has had sufficient medications thus far so we will give her a dose of hydroxyzine zine p.o. Discharged home with an outpatient order for VQ scan to be done Monday with results to go to her PCP [EM] ED Course User Index [EM] Dulce Delaney, DO Medications normal saline 0.9 % flush 3-10 mL (10 mLs Intravenous Given 02/10/241699) normal saline 0.9 % flush 3-10 mL (has no administration in time range) metoclopramide (REGLAN) injection 10 mg (10 mg Intravenous Not Given 02/10/241656) hydrOXYzine (ATARAX) tablet 25 mg (has no administration in time range) enoxaparin (LOVENOX) 100 mg/mL syringe 100 mg (100 mg Subcutaneous Given 02/10/24 170) albuterol (PROVENTIL) nebulizer solution 10 mg (10 mg Nebulization Given 02/10/24 1602) diphenhydrAMINE (BENADRYL) injection 25 mg (25 mg Intravenous Given 02/10/241658) fentaNYL (SUBLIMAZE) injection 50 mcg (50 mcg Intravenous Given 02/10/241699) sodium chloride 0.9% bolus infusion 1,000 mL (0 mLs Intravenous Infusion Stop Time 02/10/241947) morphine injection 4 mg (4 mg Intravenous Given 02/10/24 1800) HYDROmorphone (DILAUDID) injection 1 mg (1 mg Intravenous Given 02/10/24 184) ipratropium-albuterol (DUONEB) 0.5-2.5 (3) MG/3ML nebulizer solution 3 mL (3 mLs Nebulization Given02/10/241837) diphenhydrAMINE (BENADRYL) capsule 25 mg (25 mg Oral Given 02/10/241929) Clinical Impression Viral syndrome CKD (chronic kidney disease) Elevated d-dimer (Primary) Disposition: Discharge Current Discharge Medication List START taking these medications Details enoxaparin (LOVENOX) 100 mg/mL syringe Inject 1 mL (100 mg total) into the skin daily. Qty: 10 mL, Refills: 0 Class: Eprescribe Pharmacy: [id number] - [place], [place] - [address] [facility], [facility] [address], (Ph #: [phone]) DULCE DELANEY DO 02/10/2024 Dulce Delaney DO 02/10/242115 AND MAXILLOFACIAL PATHOLOGIST * Silvina Sosa RN - 02/10/2024 2:50 PM CST Pt arrives to ED for c/o SOB. Pt was seen last night at [facility] but unable to get CT with contrast dueto kidney and liver transplants. Pt had elevated d dimer. Unable to get VQ scan in [place]. Pt able totalk in short sentences at triage. AND MAXILLOFACIAL PATHOLOGIST documented in this encounter Plan of Treatment Scheduled Orders Name Type Priority Associated Diagnoses Orde r Schedule NM LUNG SCAN VENT+PERF NUC MED Routine Elevated d-dimer Expected: 02/12/2024, Expires: 02/09/2025 documented as of this encounter Procedures Procedure Name Priority Date/Time Associated Diagnosis Comments LACTIC ACID W REFLEX (SEPSIS) TIMED 02/10/2024 7:53 PM ORAL AND MAXILLOFACIAL PATHOLOGIST LACTIC ACID W REFLEX (SEPSIS) STAT 02/10/2024 4:12 PM ORAL AND MAXILLOFACIAL PATHOLOGIST BASIC METABOLIC PANEL STAT 02/10/2024 4:12 PM ORAL AND MAXILLOFACIAL PATHOLOGIST CBC W/DIFF AUTOMATED STAT 02/10/2024 4:12 PM ORAL AND MAXILLOFACIAL PATHOLOGIST CULTURE, BACTERIA, BLOOD STAT 02/10/2024 4:11 PM ORAL AND MAXILLOFACIAL PATHOLOGIST XR CHEST PORTABLE STAT 02/10/2024 4:0 2 PM ORAL AND MAXILLOFACIAL PATHOLOGIST documented in this encounter Results * LACTIC ACID W REFLEX (SEPSIS) (02/10/2024 7:53 PM ORAL AND MAXILLOFACIAL PATHOLOGIST) LACTIC ACID VENOUS 1.4 0.4 - 2.0 MMOL/L 02/10/2024 8:29 PM ORAL AND MAXILLOFACIAL PATHOLOGIST [facility] 02/10/2024 7:53 PM ORAL AND MAXILLOFACIAL PATHOLOGIST us Danish Menjivar MD LABORATORY Final Result Performing Organization Address [facility] Co de Phone Number [facility] [address] [place] [address], [phone] * (ABNORMAL) LACTIC ACID W REFLEX (SEPSIS) (02/10/2024 4:12 PM ORAL AND MAXILLOFACIAL PATHOLOGIST) LACTIC ACID VENOUS 2.7(H) 0.4 - 2.0 MMOL/L 02/10/2024 4:39 PM ORAL AND MAXILLOFACIAL PATHOLOGIST [facility] 02/10/2024 4:12 PM ORAL AND MAXILLOFACIAL PATHOLOGIST us Danish Menjivar MD LABORATORY Final Result Performing Organization Address [facility] Co de Phone Number [facility] [address] [place] [address], [phone] * (ABNORMAL) BASIC METABOLIC PANEL (02/10/2024 4:12 PM ORAL AND MAXILLOFACIAL PATHOLOGIST) SODIUM S/P/B 140 136 - 145 MMOL/L 02/10/2024 4:44 PM ORAL AND MAXILLOFACIAL PATHOLOGIST [facility] POTASSIUM S/P/B 4.9 3.5 - 5.1 MMOL/L 02/10/2024 4:44 PM [facility] Comment:SLIGHT HEMOLYSIS, RE SULT MAY BE AFFECTED. CHLORIDE S/P/B 111 97 - 115 MMOL/L 02/10/2024 4:44 PM [facility] CO2 21.9 21.0 - 32.0 MMOL/L 02/10/2024 4:44 PM [facility] GLUCOSE 231(H) 74 - 106 MG/DL 02/10/2024 4:44 PM [facility] BUN 25(H) 7 - 18 MG/DL 02/10/2024 4:44 PM [facility] CREATININE S/P/B 1.94(H) 0.55 - 1.02 MG/DL 02/10/2024 4:44 PM [facility] CALCIUM S/P/B 9.2 8.5 - 10.1 MG/DL 02/10/2024 4:44 PM [facility] ANION GAP 7.1 2.0 - 10.0 MMOL/L 02/10/2024 4:44 PM [facility] OSMOLALITY (CALC) 302 MOSM/KG 024 4:44 PM [facility] Comment:REFERENCE RANGE NOT ESTABLISHED GFR ESTIMATE 33(L) >90 ML/MIN/1. 73 M2 02/10/2024 4:44 PM [facility] GFR NOTES GFR REFERENCE S: 02/10/2024 4:44 PM [facility] Comment: THE ESTIMATED GFR [...] ml/min/1.73 m2 G5,KIDNEY FAILURE: <15 ml/min/1.73 m2 02/10/2024 4:12 PM ORAL AND MAXILLOFACIAL PATHOLOGIST Danish Menjivar MD LABORATORY Final Result [facility] [address] [place] [address], [phone] * (ABNORMAL) CBC W/DIFF AUTOMATED (02/10/2024 4:12 PM ORAL AND MAXILLOFACIAL PATHOLOGIST) WBC 13.31(H) 4.00 - 10.80 x10'3/uL 02/10/2024 4:26 PM ORAL AND MAXILLOFACIAL PATHOLOGIST [facility] RBC 3.54(L) 4.10 - 5.40 x10'6/uL 02/10/2024 4:26 PM ORAL AND MAXILLOFACIAL PATHOLOGIST [facility] HGB 12.6 12.0 - 16.0 G/DL 02/10/2024 4:26 PM ORAL AND MAXILLOFACIAL PATHOLOGIST [facility] HCT 36.0 36.0 - 47.0 % 02/10/2024 4:26 PM ORAL AND MAXILLOFACIAL PATHOLOGIST [facility] MCV 101.7(H) 78.0 - 100.0 FL 02/10/2024 4:26 PM ORAL AND MAXILLOFACIAL PATHOLOGIST [facility] MCH 35.6(H) 27.0 - 31.0 PG 02/10/2024 4:26 PM ORAL AND MAXILLOFACIAL PATHOLOGIST [facility] MCHC 35.0 33.0 - 36.0 G/DL 02/10/2024 4:26 PM ORAL AND MAXILLOFACIAL PATHOLOGIST [facility] RDW 12.8 11.5 - 14.5 % 02/10/2024 4:26 PM ORAL AND MAXILLOFACIAL PATHOLOGIST [facility] PLT 107(L) 150 - 350 x10'3/uL 02/10/2024 4:26 PM [facility] MPV 11.2(H) 7.4 - 10.4 FL 02/10/2024 4:26 PM [facility] DIFFERENTIAL TYPE AUTOMATED DIFFERENTIAL 02/10/2024 4:26 PM [facility] SEG NEUTROPHILS 93.1 % 4:26 PM [facility] LYMPHOCYTES 1.9 % 02/10/2024 4:26 PM [facility] MONOCYTES 3.9 % 02/10/2024 4:26 PM [facility] EOSINOPHILS 0.0 % 02/10/2024 4:26 PM [facility] BASOPHILS 0.2 % 02/10/2024 4:26 PM [facility] IMMATURE GRANS % 0.9 % 02/10/20 4:26 PM [facility] ABS. NEUTROPHILS 12.40(H) 1.60 - 8.30 x10'3/uL 02/10/2024 4:26 PM [facility] ABS. LYMPHOCYTES 0.25(L) 0.80 - 4.70 x10'3/uL 02/10/2024 4:26 PM [facility] ABS. MONOCYTES 0.52 0.00 - 1.50 x10'3/uL 02/10/2024 4:26 PM [facility] ABS. EOSINOPHILS 0.00 0.00 - 0.40 x10'3/uL 02/10/2024 4:26 PM [facility] ABS. BASOPHILS 0.02 0.00 - 0.20 x10'3/uL 02/10/2024 4:26 PM [facility] ABS. IMMATURE GRANULOCYTES 0.12(H) 0.00 - 0.03 x10'3/uL 02/10/2024 4:26 PM [facility] ABS. NUCLEATED RBC'S 0.00 0.00 - 0.01 x10'3/uL 02/10/2024 4:26 PM [facility] NRBC % 0.0 % 02/10/2024 4:26 PM [facility] 02/10/2024 4:12 PM ORAL AND MAXILLOFACIAL PATHOLOGIST Danish Menjivar MD LABORATORY Final Result Performing Organization Address [facility] Co de Phone Number [facility] [address] [place] [address], [place] [phone] * BLOOD CULTURE #1 (02/10/2024 4:11 PM ORAL AND MAXILLOFACIAL PATHOLOGIST) SPEC DESCRIPTION BLOOD 02/10/2024 3:47 PM ORAL AND MAXILLOFACIAL PATHOLOGIST [facility] SPECIAL REQUESTS NO SPECIAL REQUEST 02/10/2024 3:47 PM ORAL AND MAXILLOFACIAL PATHOLOGIST [facility] CULTURE RESULT NO GROWTH 5 DAYS 02/15/2024 8:22 PM ORAL AND MAXILLOFACIAL PATHOLOGIST [facility] BLOOD SPECIMEN OBTAINED FOR BLOOD CULTURE / Unknown 02/10/2024 4:11 PM ORAL AND MAXILLOFACIAL PATHOLOGIST 02/10/2024 4:12 PM ORAL AND MAXILLOFACIAL PATHOLOGIST Danish Menjivar MD MICROBIOLOGY - GENERAL ORDER KAREN Final Result Performing Organization Address [facility] Co de Phone Number [facility] [address] [place] [address], [place] [phone] * XR CHEST PORTABLE (02/10/2024 4:02 PM ORAL AND MAXILLOFACIAL PATHOLOGIST) Anatomical Region Laterality Modality Chest Radiographic Katy ging 02/10/2024 4:02 PM ORAL AND MAXILLOFACIAL PATHOLOGIST Impressions 02/10/2024 4:22 PM ORAL AND MAXILLOFACIAL PATHOLOGIST Impression: No acute pulmonary process. Dictated By: Allen Woods MD on 02/10/2024 4:02 PM The attending radiologist has reviewed the image(s) and agrees with the content of this report. Ordered By: DANISH MENJIVAR Interpreted By: Allen Woods MD, 02/10/2024 4:02 PM Narrative 02/10/2024 4:22 PM ORAL AND MAXILLOFACIAL PATHOLOGIST [facility] [address] [place], [place] [address] Exam: XR CHEST PORTABLE Date: 02/10/2024 3:57 PM Comparison: CT thoracic spine 12/22/2023 and chest radiograph 03/30/2020 and 04/02/2017 Technique: AP view the chest History: Shortness of breath. Cough. Findings: Cardiomediastinal silhouette is mildly prominent but still within normal limits. No pneumothorax or sizable pleural effusion. No consolidations. Procedure Note Vahid Gomez MD - 02/10/2024 [facility] [address] [place], [place] [address] Exam: XR CHEST PORTABLE Date: 02/10/2024 3:57 PM Comparison: CT thoracic spine 12/22/2023 and chest radiograph 03/30/2020 and04/02/2017 Technique: AP view the chest History: Shortness of breath. Cough. Findings: Cardiomediastinal silhouette is mildly prominent but stillwithin normal limits. No pneumothorax or sizable pleural effusion. Noconsolidations. Impression: No acute pulmonary process. Dictated By: Allen Woods MD on 02/10/2024 4:02 PM The attending radiologist has reviewed the image(s) and agrees with thecontent of this report. Ordered By: DANISH MENJIVAR Interpreted By: Allen Woods MD, 02/10/2024 4:02 PM Danish Menjivar MD GENERAL IMAGING Final Result documented in this encounter Visit Diagnoses Diagnosis Elevated d-dimer- Primary Abnormal coagulation profile Viral syndrome Unspecified viral infection, in conditions classified elsewhere and of unspecified site CKD (chronic kidney disease) Chronic kidney disease, unspecified documented in this encounter Administered Medications Inactive Administered Medications - up to 3 most recent administrations Medication Order MAR Action Action Date Dose Rate Site albuterol (PROVENTIL) nebulizer solution 10 mg 10 mg, Nebulization, Once, 1 dose, On 02/10/24 at 1600, Administer over 1 hour Given 02/10/2024 4:02 PM ORAL AND MAXILLOFACIAL PATHOLOGIST 10 mg diphenhydrAMINE (BENADRYL) capsule 25 mg 25 mg, Oral, Once, 1 dose, On 02/10/24 at 1930 Given 02/10/2024 7:30 PM ORAL AND MAXILLOFACIAL PATHOLOGIST 25 mg diphenhydrAMINE (BENADRYL) injection 25 mg 25 mg, Intravenous, Once, 1 dose, On 02/10/24 at 1600, For IV administration, give no faster than 25 mg/min. Given 02/10/2024 4:59 PM ORAL AND MAXILLOFACIAL PATHOLOGIST 25 mg enoxaparin (LOVENOX) 100 mg/mL syringe 100 mg 100 mg (rounded from 90.9 mg = 1 mg/kg ? 90.9 kg), Subcutaneous, Once, 1 dose, On 02/10/24 at 1600, Administer by deep SubQ injection alternating between the left or right anterolateral and left or right posterolateral abdominal wall. Given 02/10/2024 5:03 PM ORAL AND MAXILLOFACIAL PATHOLOGIST 100 mg Left Lower Abdomen fentaNYL (SUBLIMAZE) injection 50 mcg 50 mcg, Intravenous, Once, 1 dose, On 02/10/24 at 1600, If intravenous (IV) route has been ordered, give over 1-2 minutes. Given 02/10/2024 5:00 PM ORAL AND MAXILLOFACIAL PATHOLOGIST 50 mcg HYDROmorphone (DILAUDID) injection 1 mg 1 mg, Intravenous, Once, 1 dose, On 02/10/24 at 1830, Administer slowly over at least 2-3 minutes. Given 02/10/2024 6:44 PM ORAL AND MAXILLOFACIAL PATHOLOGIST 1 mg hydrOXYzine (ATARAX) tablet 25 mg 25 mg, Oral, Once, 1 dose, On 02/10/24 at 2115 Given 02/10/2024 9:16 PM ORAL AND MAXILLOFACIAL PATHOLOGIST 25 mg ipratropium-albuterol (DUONEB) 0.5-2.5 (3) MG/3ML nebulizer solution 3 mL 3 mL, Nebulization, Once, 1 dose, On 02/10/24 at 1830 Given 02/10/2024 6:38 PM ORAL AND MAXILLOFACIAL PATHOLOGIST 3 mLs morphine injection 4 mg 4 mg, Intravenous, Once, 1 dose, On 02/10/24 at 1815 Given 02/10/2024 6:00 PM ORAL AND MAXILLOFACIAL PATHOLOGIST 4 mg normal saline 0.9 % flush 3-10 mL 3-10 mL, Intravenous, Every 8 hours, First dose on 02/10/24 at 1600, Until Discontinued Given 02/10/2024 5:00 PM ORAL AND MAXILLOFACIAL PATHOLOGIST 10 mLs normal saline 0.9 % flush 3-10 mL 3-10 mL, Intravenous, As needed, Line care, Starting on 02/10/24 at 1547, Until 02/10/24 at 2322 sodium chloride 0.9% bolus infusion 1,000 mL 1,000 mL, Intravenous, Administer over 15 Minutes, Once, 1 dose, On 02/10/24 at 1800 New Bag 02/10/2024 5:53 PM ORAL AND MAXILLOFACIAL PATHOLOGIST 1,000 mLs 4000 mL/hr documented in this encounter Active and Recently Administered Medications Times are shown in ORAL AND MAXILLOFACIAL PATHOLOGIST. Scheduled Medication Order 02/08/2024 02/09/2024 02/10/2024 albuterol (PROVENTIL) nebulizer solution 10 mg (COMPLETED) 10 mg, Nebulization, Once, 1 dose, On 02/10/24 at 1600, Administer over 1 hour 1602 (Given - Provid er: Matheus Washington, B[place]LY) diphenhydrAMINE (BENADRYL) capsule 25 mg (COMPLETED) 25 mg, Oral, Once, 1 dose, On 02/10/24 at 1930 1930 (Given - Provid er: Manasa Rosa RN) diphenhydrAMINE (BENADRYL) injection 25 mg (COMPLETED) 25 mg, Intravenous, Once, 1 dose, On 02/10/24 at 1600, For IV administration, give no faster than 25 mg/min. 1659 (Given - Provid er: Liana Saenz RN) enoxaparin (LOVENOX) 100 mg/mL syringe 100 mg (COMPLETED) 100 mg (rounded from 90.9 mg = 1 mg/kg ? 90.9 kg), Subcutaneous, Once, 1 dose, On 02/10/24 at 1600, Administer by deep SubQ injection alternating between the left or right anterolateral and left or right posterolateral abdominal wall. 1703 (Given - Provid er: Liana Saenz RN) fentaNYL (SUBLIMAZE) injection 50 mcg (COMPLETED) 50 mcg, Intravenous, Once, 1 dose, On 02/10/24 at 1600, If intravenous (IV) route has been ordered, give over 1-2 minutes. 1700 (Given - Provid er: Liana Saenz RN) HYDROmorphone (DILAUDID) injection 1 mg (COMPLETED) 1 mg, Intravenous, Once, 1 dose, On 02/10/24 at 1830, Administer slowly over at least 2-3 minutes. 1844 (Given - Provid er: Liana Saenz RN) hydrOXYzine (ATARAX) tablet 25 mg (COMPLETED) 25 mg, Oral, Once, 1 dose, On 02/10/24 at 2115 2116 (Given - Provid er: Tiny Saavedra RN) ipratropium-albuterol (DUONEB) 0.5-2.5 (3) MG/3ML nebulizer solution 3 mL (COMPLETED) 3 mL, Nebulization, Once, 1 dose, On 02/10/24 at 1830 1838 (Given - Provid er: Stefania Turner, UPHOLSTERY ESTIMATOR) metoclopramide (REGLAN) injection 10 mg 10 mg, Intravenous, Once, 1 dose, On 02/10/24 at 1600, Administer IV over 1-2 minutes 1657 (Not Given - Pr ovider: Liana Saenz RN - Reason: Patient/family declined) morphine injection 4 mg (COMPLETED) 4 mg, Intravenous, Once, 1 dose, On 02/10/24 at 1815 1800 (Given - Provid er: Liana Saenz RN) normal saline 0.9 % flush 3-10 mL 3-10 mL, Intravenous, Every 8 hours, First dose on 02/10/24 at 1600, Until Discontinued 1700 (Given - Provid er: Liana Saenz RN) sodium chloride 0.9% bolus infusion 1,000 mL (COMPLETED) 1,000 mL, Intravenous, Administer over 15 Minutes, Once, 1 dose, On 02/10/24 at 1800 1753 (New Bag - Prov ider: Paris Neves RN)1948 (Infusion Stop Time - Provider: Aiden Carey RN) PRN Medication Order 02/08/2024 02/09/2024 02/10/2024 normal saline 0.9 % flush 3-10 mL 3-10 mL, Intravenous, As needed, Line care, Starting on 02/10/24 at 1547, Until 02/10/24 at 2322 documented in this encounter Care Teams Marketing Ambassador Relationship Specialty Start Date End Date Hermes Ramirez III, MD [address] [address] PCP - General FAMILY PRACTICE 06/20/17 documented as of this encounter
--- OUTSIDE RECORDS SUMMARY | 2024-03-20 11:51 | XMS_ITS | Encounter Summary ---
Author Organization [facility] Address [address] [place] [address]. [place], [place] [address] [place] [address] Care Team Providers Care Real Estate Developer Name Role Phone Ashley ZUNIGA MD, Hermes Perez Primary Care Provid er Encounter Details Date Type Department Care Team (Latest Contact Info) Description 12/09/2023 Travel Social History Tobacco Use Types Packs/Day Years Used Date Smoking Tobacco: Every Day Cigarettes 0.5 15 Smokeless Tobacco: Never Alcohol Use Standard Drinks/Week Comments No 0 (1 standard drink = 0.6 oz pur e alcohol) Comments No Sex and Gender Information Value Date Recorded Sex Assigned at Not on file Legal Sex Female 9:15 PM DRAWER IN PLAIN LOOM Gender Identity Not on file Sexual Orientation Not on file documented as of this encounter Plan of Treatment Not on file documented as of this encounter Visit Diagnoses Not on filedocumented in this encounter Care Teams Real Estate Developer Relationship Specialty Start Date End Date Hermes Ramirez III, MD [address] [facility] [address] [place] [address] PCP - General FAMILY PRACTICE 06/20/17 documented as of this encounter
--- OUTSIDE RECORDS SUMMARY | 2024-03-20 11:51 | XMS_ITS | Encounter Summary ---
Author Organization [facility] Address [address] [place] [address]. [place] [address] [place] [address] Care Team Providers Care Associate Store Leader Name Role Phone Ashley ZUNIGA MD, Hermes Perez Primary Care Provid er Encounter Details Date Type Department Care Team (Latest Contact Info) Description 06/20/2022 5:58 PM CDT - 06/20/2022 11:59 PM CDT Hospital Encounter [facility] [address] [place] [address] Sekou Bob MD [address] [place] [address] Discharge Disposition: Home or Self Care (Routine Discharge) Social History Tobacco Use Types Packs/Day Years Used Date Smoking Tobacco: Every Day Cigarettes 0.5 15 Smokeless Tobacco: Never Alcohol Use Standard Drinks/Week Comments No 0 (1 standard drink = 0.6 oz pur e alcohol) Comments No Sex and Gender Information Value Date Recorded Sex Assigned at Not on file Legal Sex Female 9:15 PM MEDICAL TECHNOLOGIST MICROBIOLOGY Gender Identity Not on file Sexual Orientation Not on file documented as of this encounter Medications at Time of Discharge LORazepam (ATIVAN) 0.5 MG tablet Take 1 tablet (0.5 mg total) by mouth. 10/26/2021 metoprolol succinate ER (TOPROL-XL) 100 MG 24 hr tablet Take 1 tablet (100 mg total) by mouth 2 (two) times a day. 12/30/2019 topiramate (TOPAMAX) 100 MG tablet Take 1 tablet (100 mg total) by mouth 2 (two) times daily. 10/27/2021 furosemide 20 MG tablet 20 mg daily. 04/14/2020 4 furosemide 40 MG tabletIndications: Liver transplanted (CMS/HCC HHS/HCC) Take 1 tablet (40 mg total) by mouth 2 (two) times daily. 6 tablet 04/15/2020 3 SODIUM BICARBONATE 650 MG tablet TAKE 2 TABLETS BY MOUTH 3 (THREE) TIMES A DAY. PT NEEDS A FOLLOW UP 540 tablet 1 09/30/2019 4 tacrolimus (PROGRAF) 1 MG capsule Take 1 tablet by mouth 2 (two) times daily. 02/06/2017 3 venlafaxine (EFFEXOR) 37.5 MG tablet Take 1 tablet (37.5 mg total) by mouth. 04/21/2022 4 documented as of this encounter Plan of Treatment Not on file documented as of this encounter Procedures Procedure Name Priority Date/Time Associated Diagnosis Comments HUMAN PAPILLOMAVIRUS, HIGH-RISK TYPES Routine 06/20/2022 12:00 PM CDT CYTOPATH CERV/VAG THIN LAYER Routine 06/20/2022 7:46 AM CDT documented in this encounter Results * HUMAN PAPILLOMAVIRUS, HIGH-RISK TYPES (06/20/2022 12:00 PM CDT) SPECIMEN CERVICAL/END OCERVICAL 06/22/2022 8:18 AM CDT [facility] HPV DNA HIGH RISK NEGATIVE NEGATIVE 06/22/2022 7:35 PM CDT [facility] Comment:SEE CYTOLOGY REPORT 06/20/2022 12:0 0 PM CDT us Sekou Bob MD PATHOLOGY/CYTOLOGY ORDER KAREN Final Result [facility] [address] [place] [id number], * Cytopath Cerv/Vag Thin Layer (06/20/2022 7:46 AM CDT) THIN PREP PAP ? [facility] ?[address] ?[place] [address] ? Department of Pathology ? Pathology Report ? CERVICAL/VAGINAL PAP SMEAR REPORT Name: MISHA JACKSON A ? Age: 7 1980 (Age: 41) ?Location: [facility] Sex: F ?Collected Date: 06/20/2022 [facility] #: [id number] ?Date Received: 06/22/2022 Date Reported: 06/24/2022 Provider: SEKOU BOB MD ?JUNIOR DUCKWORTH MD ?HERMES RAMIREZ III, MD INTERPRETATION CERVICAL/ENDOCERVI GERARDO: ? 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 [facility] 06/20/2022 7:46 AM CDT 06/22/2022 7:46 AM CDT Comment:CERVICAL/ENDOCERVICA L us Sekou Bob MD PATHOLOGY/CYTOLOGY ORDER KAREN Final Result [facility] () [facility] [address] [place] [address], documented in this encounter Visit Diagnoses Not on filedocumented in this encounter Care Teams Associate Store Leader Relationship Specialty Start Date End Date Hermes Ramirez III, MD [address] [facility] [address] [place] [address] PCP - General FAMILY PRACTICE 06/20/17 documented as of this encounter
--- OUTSIDE RECORDS SUMMARY | 2024-03-20 11:51 | XMS_ITS | Encounter Summary ---
Author Organization [facility] Address [address] [place] [address]. [place], [place] [phone] [place] [address] Care Team Providers Care Branch Library Clerk Name Role Phone Ashley ZUNIGA MD, Hermes Perez Primary Care Provid er Encounter Details Date Type Department Care Team (Latest Contact Info) Description 12/22/2023 Travel Social History Tobacco Use Types Packs/Day Years Used Date Smoking Tobacco: Every Day Cigarettes 0.5 15 Smokeless Tobacco: Never Alcohol Use Standard Drinks/Week Comments No 0 (1 standard drink = 0.6 oz pur e alcohol) Comments No Sex and Gender Information Value Date Recorded Sex Assigned at Not on file Legal Sex Female 9:15 PM AIRFREIGHT LOADING SUPERVISOR Gender Identity Not on file Sexual Orientation Not on file documented as of this encounter Plan of Treatment Not on file documented as of this encounter Visit Diagnoses Not on filedocumented in this encounter Care Teams Branch Library Clerk Relationship Specialty Start Date End Date Hermes Ramirez III, MD [address] [facility] [address] [place] [address] PCP - General FAMILY PRACTICE 06/20/17 documented as of this encounter
--- OUTSIDE RECORDS SUMMARY | 2024-03-20 11:51 | XMS_ITS | Encounter Summary ---
Author Organization [facility] Address [address] [place] [address]. [place], [place] [address] [place] [address] Care Team Providers Care Manager Logistic Name Role Phone Ashley ZUNIGA MD, Hermes Perez Primary Care Provid er Encounter Details Date Type Department Care Team (Latest Contact Info) Description 10/08/2023 Travel Social History Tobacco Use Types Packs/Day Years Used Date Smoking Tobacco: Every Day Cigarettes 0.5 15 Smokeless Tobacco: Never Alcohol Use Standard Drinks/Week Comments No 0 (1 standard drink = 0.6 oz pur e alcohol) Comments No Sex and Gender Information Value Date Recorded Sex Assigned at Not on file Legal Sex Female 9:15 PM CANE STRIPPER Gender Identity Not on file Sexual Orientation Not on file documented as of this encounter Plan of Treatment Not on file documented as of this encounter Visit Diagnoses Not on filedocumented in this encounter Care Teams Manager Logistic Relationship Specialty Start Date End Date Hermes Ramirez III, MD [address] [facility] [address] [place] [address] PCP - General FAMILY PRACTICE 06/20/17 documented as of this encounter
--- OUTSIDE RECORDS SUMMARY | 2024-03-20 11:51 | XMS_ITS | Encounter Summary ---
Author Organization [facility] Address [address] [place] [address]. [place], [place] [address] [place] [address] Care Team Providers Care Retail Warehouse Associate Name Role Phone Ashley ZUNIGA MD, Hermes Perez Primary Care Provid er Encounter Details Date Type Department Care Team (Latest Contact Info) Description 07/23/2023 Travel Social History Tobacco Use Types Packs/Day Years Used Date Smoking Tobacco: Every Day Cigarettes 0.5 15 Smokeless Tobacco: Never Alcohol Use Standard Drinks/Week Comments No 0 (1 standard drink = 0.6 oz pur e alcohol) Comments No Sex and Gender Information Value Date Recorded Sex Assigned at Not on file Legal Sex Female 9:15 PM ROOF 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
--- OUTSIDE RECORDS SUMMARY | 2024-03-20 11:51 | XMS_ITS | Encounter Summary ---
Author Organization [facility] Address [address] [place] [address]. [place], [place] [address] [place] [address] Care Team Providers Care Vehicle Sales Professional Name Role Phone Ashley ZUNIGA MD, Hermes Perez Primary Care Provid er Encounter Details Date Type Department Care Team (Latest Contact Info) Description 12/08/2023 Travel Social History Tobacco Use Types Packs/Day Years Used Date Smoking Tobacco: Every Day Cigarettes 0.5 15 Smokeless Tobacco: Never Alcohol Use Standard Drinks/Week Comments No 0 (1 standard drink = 0.6 oz pur e alcohol) Comments No Sex and Gender Information Value Date Recorded Sex Assigned at Not on file Legal Sex Female 9:15 PM PRINT FINISHER Gender Identity Not on file Sexual Orientation Not on file documented as of this encounter Plan of Treatment Not on file documented as of this encounter Visit Diagnoses Not on filedocumented in this encounter Care Teams Vehicle Sales Professional Relationship Specialty Start Date End Date Hermes Ramirez III, MD [address] [facility] [address] [place] [address] PCP - General FAMILY PRACTICE 06/20/17 documented as of this encounter
--- OUTSIDE RECORDS SUMMARY | 2024-03-20 11:51 | XMS_ITS | Encounter Summary ---
Author Organization [facility] Address [address] [place] [address]. [place] [address] [place] [address] Care Team Providers Care Restorative Coordinator Name Role Phone Ashley ZUNIGA MD, Hermes Perez Primary Care Provid er Reason for Visit * Reason Comments Headache Encounter Details Date Type Department Care Team (Late st Contact Info) Description 10/08/2023 1:27 AM CDT - 10/08/2023 1:34 AM CDT Emergency [facility] [address] [place] [address] [place] [address] Phillip Cook MD [address] [place] [address] Headache Discharge Disposition: Home or Self Care [...] on file Legal Sex Female 9:15 PM BELL MAKER Gender Identity Not on file Sexual Orientation Not on file documented as of this encounter Last Filed Vital Signs Vital Sign Reading Time Taken Comments Blood Pressure 164/94 10/08/2023 1:13 AM CDT Pulse 74 10/08/2023 1:13 AM CDT Temperature 37.3 ??C (99.2 ??F) 10/08/2023 1:13 AM CD T Respiratory Rate 18 10/08/2023 1:13 AM CDT Oxygen Saturation 99% 10/08/2023 1:13 AM CDT Inhaled Oxygen Concentration - - Weight - - Height - - Body Mass Index - - documented in this encounter Discharge Instructions * Attachments The following attachments cannot be sent through Care Everywhere. * Headache, Adult ED (Filipino) documented in this encounter Medications at Time [...] as of this encounter ED Notes * Daron Millard RN - 10/08/2023 1:33 AM CDT PATIENT UPSET WITH MD. PATIENT STS SHE IS LEAVING. LEFT WITHOUT BEING REGISTERED AND SLAMMED DOORS ON WAY OUT. * Phillip Cook MD - 10/08/2023 1:29 AM CDT Chief Complaint Chief Complaint Patient presents with Headache History of Present Illness Headache Pertinent negatives include no fever and no shortness of breath. Patient presenting with headache. Patient reports history of migraines. No head trauma, no LOC. Shereports no focal weakness, no blurry vision, no slurred speech. Patient is asking for morphine or Dilaudid. She reports she is allergic to Toradol and ibuprofen and the only thing that works for her is morphine/Dilaudid. No other complaints. Medical History ALLERGIES: Review of patient's allergies [...] Systems Review of Systems Constitutional: Negative for fever. Respiratory: Negative for shortness of breath. Cardiovascular: Negative for chest pain. Neurological: Positive for headaches. Physical Exam Filed Vitals: 10/08/23 0113 BP: (!) 164/94 Pulse: 74 Resp: 18 Temp: 99.2 ??F (37.3 ??C) TempSrc: Oral SpO2: 99% Physical Exam Neck: Comments: No meningismus Musculoskeletal: General: Normal range of motion. Neurological: Mental Status: She is alert and oriented to person, place, and time. Mental status is at baseline. Diagnostic Studies / Procedures ELECTROCARDIOGRAMS: No results found for this visit on 10/08/23. LABORATORY STUDIES: No results found for this visit on 10/08/23. IMAGING STUDIES No orders to display ED Course / Medical Decision Making Medical Decision Making Patient presenting with headache. She reports the only thing that works for her is morphine or Dilaudid. Had a very long discussion with the patient and informed her that morphine/Dilaudid is not thefirst-line treatment for migraine. I offered her Reglan/Benadryl and patient does not want. She walked out of the ED as I am talking to her. Patient was told she can come back if she changes her mindand I will give her the Reglan/Benadryl. Amount and/or Complexity of Data Reviewed External Data Reviewed: notes. Details: Old chart reviewed Risk Prescription drug management. Decision regarding hospitalization. Clinical Impression Headache (Primary) Disposition: Discharge Phillip Cook MD 10/08/23 0130 * Daron Millard RN - 10/08/2023 1:28 AM CDT PATIENT PRESENTS TO ER WITH COMPLAINT OF HEADACHE THAT STARTED LAST NIGHT. PATIENT STS SHE HAS TAKEN TYLENOL WITHOUT RELIEF. PATIENT RELIEF. PATIENT STS DILAUDID AND/OR MORPHINE MIXED WITH BENADRYL IS ALL THAT HELPS. documented in this encounter Plan of Treatment Not on file documented as of this encounter Visit Diagnoses Diagnosis Headache- Primary documented in this encounter Care Teams Restorative Coordinator Relationship Specialty Start Date End Date Hermes Ramirez III, MD [address] [facility] [address] [place] [address] PCP - General FAMILY PRACTICE 06/20/17 documented as of this encounter
--- OUTSIDE RECORDS SUMMARY | 2024-03-20 11:52 | XMS_ITS | Encounter Summary ---
Author Organization [facility] Address [address] [place] [address]. [place], [place] [phone] [place] [address] Care Team Providers Care Application Support Administrator Name Role Phone Ashley ZUNIGA MD, Hermes Perez Primary Care Provid er Encounter Details Date Type Department Care Team (Latest Contact Info) Description 06/03/2021 Travel Social History Tobacco Use Types Packs/Day Years Used Date Smoking Tobacco: Every Day Cigarettes 0.5 15 Smokeless Tobacco: Never Alcohol Use Standard Drinks/Week Comments No 0 (1 standard drink = 0.6 oz pur e alcohol) Comments No Sex and Gender Information Value Date Recorded Sex Assigned at Not on file Legal Sex Female 9:15 PM 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 No / Unsure 06/03/2021 1:42 PM CDT documented as of this encounter Plan of Treatment Not on file documented as of this encounter Visit Diagnoses Not on filedocumented in this encounter Care Teams Application Support Administrator Relationship Specialty Start Date End Date Hermes Ramirez III, MD [address] [facility] [address] [place] [address] PCP - General FAMILY PRACTICE 06/20/17 documented as of this encounter
--- OUTSIDE RECORDS SUMMARY | 2024-03-20 11:52 | XMS_ITS | Encounter Summary ---
Author Organization [facility] Address [address] [place] [address]. [place], [place] [address] [place] [address] Care Team Providers Care Stone Driller Helper Name Role Phone Ashley ZUNIGA MD, Hermes Perez Primary Care Provid er Reason for Visit * Reason Onset Date Comments Abnormal Lab Results 04/16/2020 Encounter Details Date Type Department Care Team ([facility] Contact Info) Description 04/16/2020 Telephone [facility] [place] [address] Belinda Us MD [address] [place] [address] Abnormal Lab Results Social History Tobacco Use Types Packs/Day Years Used Date Smoking Tobacco: Every Day Cigarettes 0.5 15 Smokeless Tobacco: Never Alcohol Use Standard Drinks/Week Comments No 0 (1 standard drink = 0.6 oz pur e alcohol) Comments No Sex and Gender Information Value Date Recorded Sex Assigned at Not on file Legal Sex Female 9:15 PM RUN BOAT OPERATOR Gender Identity Not on file Sexual Orientation Not on file COVID-19 Exposure Response Date Recorded In the last month, have you been in contact with someone who was confirmed or suspected to have Coronavirus / COVID-19? No / Unsure 04/15/2020 9:53 AM RUN BOAT OPERATOR documented as of this encounter Progress Notes * Belinda Us MD - 04/16/2020 5:35 PM CST I called Ms Browne- her number was unavailable I called her next of kin her sister When seen yesterday: She was ~15kg up in weight, she felt terrible, her Liver enzymes and Bili wereelevated, creatinine elevated as well. states she had left a message with [facility] but they had not called back. I called [facility]ard to her transplant team I reached her data entry coordinator Melba who stated patient was reached yesterday and was able togo to [facility]. She is admitted She called the clinic back-- provided her new number. Plan is to call The coordinator Melba in about 4 weeks to obtain her discharge summary and determine when next to see her. BOAT OPERATOR documented in this encounter Plan of Treatment Not on file documented as of this encounter Visit Diagnoses Not on filedocumented in this encounter Care Teams Stone Driller Helper Relationship Specialty Start Date End Date Hermes Ramirez III, MD [address] [facility] [address] [place] [address] PCP - General FAMILY PRACTICE 06/20/17 documented as of this encounter
--- OUTSIDE RECORDS SUMMARY | 2024-03-20 11:52 | XMS_ITS | Encounter Summary ---
Author Organization [facility] Address [address] [place] [address]. [place], [place] [address] [place] [address] Care Team Providers Care Bottling Room Worker Name Role Phone Ashley ZUNIGA MD, Hermes Perez Primary Care Provid er Encounter Details Date Type Department Care Team (Latest Contact Info) Description 04/15/2020 Travel Social History Tobacco Use Types Packs/Day Years Used Date Smoking Tobacco: Every Day Cigarettes 0.5 15 Smokeless Tobacco: Never Alcohol Use Standard Drinks/Week Comments No 0 (1 standard drink = 0.6 oz pur e alcohol) Comments No Sex and Gender Information Value Date Recorded Sex Assigned at Not on file Legal Sex Female 9:15 PM LABORER TIN CAN Gender Identity Not on file Sexual Orientation Not on file COVID-19 Exposure Response Date Recorded In the last month, have you been in contact with someone who was confirmed or suspected to have Coronavirus / COVID-19? No / Unsure 04/15/2020 9:53 AM LABORER TIN CAN documented as of this encounter Plan of Treatment Not on file documented as of this encounter Visit Diagnoses Not on filedocumented in this encounter Care Teams Bottling Room Worker Relationship Specialty Start Date End Date Hermes Ramirez III, MD [address] [facility] [address] [place] [address] PCP - General FAMILY PRACTICE 06/20/17 documented as of this encounter
--- OUTSIDE RECORDS SUMMARY | 2024-03-20 11:52 | XMS_ITS | Encounter Summary ---
Author Organization [facility] Address [address] [place] [address]. [place], [place] [id number] [place] [id number] Care Team Providers Care Electrical Engineering Professor Name Role Phone Ashley ZUNIGA MD, Hermes Perez Primary Care Provid er Reason for Visit * Reason Comments Headache Encounter Details Date Type Department Care Team (Late st Contact Info) Description 12/02/2021 11:39 AM CDT - 12/02/2021 1:26 PM CDT Emergency [place] [facility] [address] [place] [address] Kings Ardon MD [address] [place] [address] Headache Discharge Disposition: Home or Self Care [...] on file Legal Sex Female 9:15 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 No / Unsure 12/02/2021 10:40 AM CDT documented as of this encounter Last Filed Vital Signs Vital Sign Reading Time Taken Comments Blood Pressure 131/85 12/02/2021 10:26 AM CDT Pulse 86 12/02/2021 10:26 AM CDT Temperature 36.7 ??C (98.1 ??F) 12/02/2021 10:26 AM C DT Respiratory Rate 18 12/02/2021 10:26 AM CDT Oxygen Saturation 98% 12/02/2021 10:26 AM CDT Inhaled Oxygen Concentration - - Weight 72.6 kg (160 lb) 12/02/2021 10:26 AM CDT Height 157.5 cm (5' 2 ) 12/02/2021 10:26 AM CDT Body Mass Index 29.26 12/02/2021 10:26 AM CDT documented in this encounter Discharge Instructions * Attachments The following attachments cannot be sent through Care Everywhere. * Headache Discharge Instructions, Adult (Finnish) documented in this encounter Medications at Time [...] mouth 2 (two) times daily. 02/06/2017 3 documented as of this encounter ED Notes * Kings Ardon MD - 12/02/2021 12:14 PM CDT Chief Complaint Chief Complaint Patient presents with ??? Headache History of Present Illness Patient presents to the emergency department with complaint of migraine headache. Patient states symptoms have been going on since yesterday. Right- sided and pressure-like. No vomiting or diarrhea, no fevers. Patient states that current symptoms are typical of her previous migraines, there is nothing abnormal. Past medical history of liver transplant and kidney transplant, is on immunosuppressants. She is currently being treated by ENT for a fungal ear infection. Patient states that when she comes to the emergency department for migraine she usually gets Benadryl, Phenergan, and either Dilaudid or morphine Medical History ALLERGIES: Allergies Allergen Reactions ??? Azithromycin Unknown Medication interaction ??? Codeine Itching and Unknown ??? Erythromycin Unknown and Other (see comment) Other reaction(s): Medication interaction Medication interaction ??? Gentamicin Other (see comment) Medication interaction ??? Ketorolac Other (see comment) ??? Ketorolac Tromethamine Other (see comment) KIDNEY Other reaction(s): Kidney failure as a complication of care. RENAL TOXICITY. MEDICATIONS: Prior to Admission medications Medication Sig Start Date End Date Taking? Authorizing Provider furosemide 20 MG tablet 20 mg daily. 04/14/20 [facility] furosemide 40 MG tablet Take 1 tablet (40 mg total) by mouth 2 (two) times daily. 04/15/20 Belinda Us MD metoprolol succinate ER 50 MG 24 hr tablet Take 50 mg by mouth. 12/30/19 [facility] SODIUM BICARBONATE 650 MG tablet TAKE 2 TABLETS BY MOUTH 3 (THREE) TIMES A DAY. PT NEEDS A FOLLOW UP 09/30/19 Bethanie Leonard MD tacrolimus (PROGRAF) 1 MG capsule Take 1 tablet by mouth 2 (two) times daily. 02/06/17 Doc [facility] PAST MEDICAL HISTORY: Past Medical History: Diagnosis Date ??? Anemia ??? Biliary atresia congenital ??? Chronic kidney disease ??? Migraine ??? Thrombocytopenia (CMS/HCC) PAST SURGICAL HISTORY: Past Surgical History: Procedure Laterality Date ??? SECTION ??? INGUINAL HERNIA Bilateral age 5 ??? LIVER TRANSPLANTATION FAMILY HISTORY: Family History Problem Relation Name Age of Onset ??? Diabetes Neg Hx SOCIAL HISTORY: Social History Tobacco Use ??? Smoking status: Current Every Day Smoker Packs/day: 0.50 Years: 15.00 Pack years: 7.50 ??? Smokeless tobacco: Never Used Substance Use Topics ??? Alcohol use: No ??? Drug use: No Review of Systems Review of Systems Constitutional: Negative for fever. HENT: Positive for congestion and ear pain. Respiratory: Negative for shortness of breath. Cardiovascular: Negative for chest pain. Gastrointestinal: Negative for abdominal pain, diarrhea and vomiting. Genitourinary: Negative for dysuria. Musculoskeletal: Negative for back pain. Skin: Negative for rash. Allergic/Immunologic: Positive for immunocompromised state. Neurological: Positive for headaches. Negative for dizziness, syncope, speech difficulty, weakness and numbness. Hematological: Does not bruise/bleed easily. Psychiatric/Behavioral: Negative for confusion. Physical Exam Filed Vitals: 12/02/21 1026 BP: 131/85 Pulse: 86 Resp: 18 Temp: 98.1 ??F (36.7 ??C) TempSrc: Tympanic SpO2: 98% Weight: 72.6 kg (160 lb) Height: 5' 2 (1.575 m) Physical Exam Vitals and nursing note reviewed. Constitutional: Appearance: Normal appearance. HENT: Head: Normocephalic and atraumatic. Mouth/Throat: Mouth: Mucous membranes are moist. Eyes: Conjunctiva/sclera: Conjunctivae normal. Pupils: Pupils are equal, round, and reactive to light. Cardiovascular: Rate and Rhythm: Normal rate. Pulmonary: Effort: Pulmonary effort is normal. Abdominal: General: Abdomen is flat. Musculoskeletal: General: No swelling or deformity. Skin: General: Skin is warm and dry. Neurological: General: No focal deficit present. Mental Status: She is alert and oriented to person, place, and time. Psychiatric: Mood and Affect: Mood normal. Behavior: Behavior normal. Diagnostic Studies / Procedures ELECTROCARDIOGRAMS: No results found for this visit on 12/02/21. LABORATORY STUDIES: No results found for this visit on 12/02/21. IMAGING STUDIES No orders to display ED Course / Medical Decision Making MDM Number of Diagnoses or Management Options Headache Diagnosis management comments: Patient presents with her typical migraine symptoms. Patient states the medication she usually receives in the emergency department for migraines is Phenergan, Benadryl, and either Dilaudid or morphine. Narcotics for migraines would not be standard of care. Unfortunately this patient is immunocompromised because of liver and kidney transplant. She cannot take Toradol. Will be given a single IM dose of fentanyl as well as IM Phenergan and Benadryl. Pt refused IM fentanyl. I will not be giving any other narcotics, specifically will not be giving dilaudid. Narcotics are not indicated for acute migraine treatment in the ED. Review of chart shows patient has received dilaudid many times for HARRIS in the ED. It would be helpful if other ED providers did not give patients narcotics for headaches as well. VSS, no distress. Ok to d/c home. F/u with pcp or neurologist. Return to ED for worsening or concerning symptoms Amount and/or Complexity of Data Reviewed Review and summarize past medical records: yes Patient Progress Patient progress: stable ED Course as of 12/02/21 1322 Diana Dec 02, 2021 1300 Nurse informed me that pt refused fentanyl, it does nothing for me . Pt was given phenergan and benadryl. [JJ] ED Course User Index [JJ] Kings Ardon MD Clinical Impression Headache (Primary) Disposition: Discharge Kings Ardon MD 12/02/21 1322 * Hilda Egan RN - 12/02/2021 10:39 AM CDT Says has had migraine since yesterday, hx same also being treated by ENT for fungal infection and put cream in and made pressure worse documented in this encounter Plan of Treatment Not on file documented as of this encounter Visit Diagnoses Diagnosis Headache- Primary documented in this encounter Administered Medications Inactive Administered Medications - up to 3 most recent administrations Medication Order MAR Action Action Date Dose Rate Site diphenhydrAMINE (BENADRYL) injection 25 mg 25 mg, Intramuscular, Once, 1 dose, On Diana 12/02/21 at 1215, For IV administration, give no faster than 25 mg/min. Given 12/02/2021 12:42 PM CDT 25 mg Right Deltoid promethazine (PHENERGAN) injection 25 mg 25 mg, Intramuscular, Once, 1 dose, On Diana 12/02/21 at 1215, For IV administration must be used with CAUTION. Dilute dose to 10 ml with NS and inject over 10 minutes through a running IV line. Given 12/02/2021 12:45 PM CDT 25 mg Left Deltoid documented in this encounter Active and Recently Administered Medications Times are shown in CDT. Scheduled Medication Order 11/30/2021 12/01/2021 12/02/2021 diphenhydrAMINE (BENADRYL) injection 25 mg (COMPLETED) 25 mg, Intramuscular, Once, 1 dose, On Diana 12/02/21 at 1215, For IV administration, give no faster than 25 mg/min. 1242 (Given - Provid er: Cesar Lopez RN) fentaNYL (SUBLIMAZE) injection 50 mcg 50 mcg, Intramuscular, Once, 1 dose, On Diana 12/02/21 at 1215, If intravenous (IV) route has been ordered, give over 1-2 minutes. 1245 (Not Given - Pr ovider: Cesar Lopez RN - Reason: Patient/family declined) promethazine (PHENERGAN) injection 25 mg (COMPLETED) 25 mg, Intramuscular, Once, 1 dose, On Diana 12/02/21 at 1215, For IV administration must be used with CAUTION. Dilute dose to 10 ml with NS and inject over 10 minutes through a running IV line. 1245 (Given - Provid er: Cesar Lopez RN) documented in this encounter Care Teams Electrical Engineering Professor Relationship Specialty Start Date End Date Hermes Ramirez III, MD [address] [facility] [address] [place] [address] PCP - General FAMILY PRACTICE 06/20/17 documented as of this encounter
--- OUTSIDE RECORDS SUMMARY | 2024-03-20 11:52 | XMS_ITS | Encounter Summary ---
Author Organization [facility] Address [address] [place] [address]. 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 No / Unsure 11/17/2020 10:29 AM CDT documented as of this encounter Last Filed Vital Signs Vital Sign Reading Time Taken Comments Blood Pressure 158/90 11/17/2020 9:21 AM CDT Pulse 93 11/17/2020 9:21 AM CDT Temperature 36.3 ??C (97.4 ??F) 11/17/2020 9:21 AM CD T Respiratory Rate 20 11/17/2020 9:21 AM CDT Oxygen Saturation 100% 11/17/2020 9:21 AM CDT Inhaled Oxygen Concentration - - Weight 74.8 kg (165 lb) 11/17/2020 9:21 AM CDT Height 157.5 cm (5' 2 ) 11/17/2020 9:21 AM CDT Body Mass Index 30.18 11/17/2020 9:21 AM CDT documented in this encounter Discharge Instructions * Discharge Instructions* Daniel Lopez PA-C - 11/17/2020 12:39 PM CDT Call your Primary Care Physician tomorrow to schedule a follow up appointment. Take Zofran as directed for nausea. Return if symptoms worsen. documented in this encounter Medications at Time of Discharge metoprolol succinate ER (TOPROL-XL) 100 MG 24 hr tablet Take 1 tablet (100 mg total) by mouth 2 (two) times a day. 12/30/2019 furosemide 20 MG tablet 20 mg daily. 04/14/2020 4 furosemide 40 MG tabletIndications:Li lorraine transplanted ([facility]) Take 1 tablet (40 mg total) by mouth 2 (two) times daily. 6 tablet 04/15/2020 3 ondansetron 4 MG disintegrating tablet Take 1 tablet (4 mg total) by mouth every 8 (eight) hours as needed for Nausea. 6 tablet 11/17/2020 1 SODIUM BICARBONATE 650 MG tablet TAKE 2 TABLETS BY MOUTH 3 (THREE) TIMES A DAY. PT NEEDS A FOLLOW UP 540 tablet 1 09/30/2019 4 tacrolimus (PROGRAF) 1 MG capsule Take 1 tablet by mouth 2 (two) times daily. 02/06/2017 3 documented as of this encounter ED Notes * Addison Escalona RN - 11/17/2020 12:48 PM CDT Pt called out 10 min after medicinal chemist declared her headache was gone. * Daniel Lopez PA-C - 11/17/2020 11:32 AM CDT Chief Complaint Chief Complaint Patient presents with ??? Headache History of Present Illness Patient is a 40 year old female being seen for a headache that started yesterday. She states last night she too Fioricet which did not help. She has a long history of migraines. She had an endometrial ablation years ago but still gets these migraines that are accompanied with cramps, breast tenderness, and nausea. She just started a new blood pressure medication today. She states she recently hada liver and kidney transplant earlier this year and is unable to take nsaids. She has had some nausea and photophobia today. She denies fever, vomiting, vision changes, lightheadedness, or dizziness. Medical History ALLERGIES: Allergies Allergen Reactions ??? Aspirin Other (see comment) and Unknown C High risk bleeding ??? Azithromycin Unknown Medication interaction ??? Codeine [...] Start Date End Date Taking? Authorizing Provider ondansetron 4 MG disintegrating tablet Take 1 tablet (4 mg total) by mouth every 8 (eight) hours asneeded for Nausea. 11/17/20 11/19/20 Yes Daniel Lopez PA-C furosemide 20 MG tablet 20 mg daily. 04/14/20 Doc Abstract furosemide 40 MG tablet Take 1 tablet (40 mg total) by mouth 2 (two) times daily. 04/15/20 Belinda Us MD metoprolol succinate ER 50 MG 24 hr tablet Take 50 mg by mouth. 12/30/19 Doc [facility] SODIUM BICARBONATE 650 MG tablet TAKE 2 TABLETS BY MOUTH 3 (THREE) TIMES A DAY. PT NEEDS A FOLLOW UP 09/30/19 Bethanie Leonard MD tacrolimus (PROGRAF) 1 MG capsule Take 1 tablet by mouth 2 (two) times daily. 02/06/17 Doc [facility] PAST MEDICAL HISTORY: Past Medical History: [...] Review of Systems Constitutional: Negative for chills, fatigue and fever. HENT: Negative for congestion, ear pain, rhinorrhea, sinus pressure, sinus pain and sore throat. Eyes: Positive for photophobia. Negative for visual disturbance. Respiratory: Negative for cough and shortness of breath. Cardiovascular: Negative for chest pain. Gastrointestinal: Positive for nausea. Negative for abdominal pain, diarrhea and vomiting. Musculoskeletal: Negative for back pain, neck pain and neck stiffness. Neurological: Positive for headaches. Negative for dizziness, syncope, weakness, light-headedness and numbness. Physical Exam Filed Vitals: 11/17/20 0921 BP: (!) 158/90 Pulse: 93 Resp: 20 Temp: 97.4 ??F (36.3 ??C) TempSrc: Tympanic SpO2: 100% Weight: 74.8 kg (165 lb) Height: 5' 2 (1.575 m) Physical Exam Vitals and nursing note reviewed. Constitutional: General: She is not in acute distress. Appearance: Normal appearance. She is not ill-appearing or toxic-appearing. HENT: Right Ear: Tympanic membrane and ear canal normal. Left Ear: Tympanic membrane and ear canal normal. Nose: Nose normal. Mouth/Throat: Mouth: Mucous membranes are moist. Pharynx: Oropharynx is clear. Eyes: Extraocular Movements: Extraocular movements intact. Pupils: Pupils are equal, round, and reactive to light. Cardiovascular: Rate and Rhythm: Normal rate and regular rhythm. Heart sounds: Normal heart sounds. Pulmonary: Effort: Pulmonary effort is normal. No respiratory distress. Breath sounds: Normal breath sounds. Musculoskeletal: Cervical back: Normal range of motion. No rigidity or tenderness. Skin: General: Skin is warm. Neurological: General: No focal deficit present. Mental Status: She is alert. Mental status is at baseline. Psychiatric: Mood and Affect: Mood normal. Behavior: Behavior normal. Diagnostic Studies / Procedures ELECTROCARDIOGRAMS: No results found for this visit on 11/17/20. LABORATORY STUDIES: No results found for this visit on 11/17/20. IMAGING STUDIES No orders to display ED Course / Medical Decision Making The patient was given medication in the department - dilaudid, benadryl, zofran; prescription for zofran This patient was seen only by the KAMILAH. If [id number] time involving the physician is not documented, the encounter is considered an CHRISOTPHER definitive care visit. MDM Number of Diagnoses or Management Options Headache: new and does not require workup Amount and/or Complexity of Data Reviewed Tests in the medicine section of CPT??: ordered and reviewed Review and summarize past medical records: yes Discuss the patient with other providers: yes Risk of Complications, Morbidity, and/or Mortality Presenting problems: low Diagnostic procedures: low Management options: low General comments: I have seen the patient. ??They have received a medical screening exam. Critical and common diagnoses were considered and discussed with the patient. ??The patient's history, physical exam, and ancillary studies were taken into consideration for the patient's treatment. ??After reviewing the information and discussing the potential outcomes / risks/ benefits, the patient's disposition was agreed upon. We discussed strict return symptoms/red flags. Patient Progress Patient progress: improved ED Course as of Nov 17 124 Tue Nov 17, 2020 1240 Patient feeling much better after second dose of Dilaudid. Patient to be discharged. [JERARDO] ED Course User Index [JERARDO] Daniel Lopez PA-C Clinical Impression Headache (Primary) Disposition: Discharge Daniel Lopez PA-C 11/17/20 1242 Cosigned by Jonas Dotson DO at 11/17/2020 6:30 PM CDT * Shea Park RN - 11/17/2020 9:24 AM CDT PRESENTS WITH C/O MIGRAINE, ONSET YESTERDAY. STATES HX. OF. STATES TOOK 2 FIORICET DURING NIGHT. PTSTATES HAD ABLATION SO NO PERIODS BUT GETS SX OF CRAMPS AND BREAST TENDERNESS AND FEELS THIS IS RELATED TO MIGRAINE. STATES IS ON BP MED ALSO documented in this encounter Plan of Treatment Not on file documented as of this encounter Visit Diagnoses Diagnosis Headache- Primary documented in this encounter Administered Medications Inactive Administered Medications - up to 3 most recent administrations Medication Order MAR Action Action Date Dose Rate Site diphenhydrAMINE (BENADRYL) injection 25 mg 25 mg, Intramuscular, Once, 1 dose, On Mon11/17/20 at 1245, For IV administration, give no faster than 25 mg/min. Given 11/17/2020 12:39 PM CDT 25 mg Right Deltoid diphenhydrAMINE (BENADRYL) tablet 25 mg 25 mg, Oral, Once, 1 dose, On Mon11/17/20 at 1100 Given 11/17/2020 11:02 AM CDT 25 mg HYDROmorphone (DILAUDID) injection 1 mg 1 mg, Intramuscular, Once, 1 dose, On Mon11/17/20 at 1100, Administer slowly over at least 2-3 minutes. Given 11/17/2020 11:01 AM CDT 1 mg Right Deltoid HYDROmorphone (DILAUDID) injection 1 mg 1 mg, Intramuscular, Once, 1 dose, On Mon11/17/20 at 1215, Administer slowly over at least 2-3 minutes. Given 11/17/2020 12:37 PM CDT 1 mg Right Deltoid ondansetron (ZOFRAN-ODT) disintegrating tablet 4 mg 4 mg, Oral, Once, 1 dose, On Mon11/17/20 at 1100 Given 11/17/2020 11:02 AM CDT 4 mg documented in this encounter Active and Recently Administered Medications Times are shown in CDT. Scheduled Medication Order 11/15/2020 11/16/2020 11/17/2020 diphenhydrAMINE (BENADRYL) injection 25 mg (COMPLETED) 25 mg, Intramuscular, Once, 1 dose, On Mon11/17/20 at 1245, For IV administration, give no faster than 25 mg/min. 1239 (Given - Provid er: Addison Escalona RN) diphenhydrAMINE (BENADRYL) tablet 25 mg (COMPLETED) 25 mg, Oral, Once, 1 dose, On Mon11/17/20 at 1100 1102 (Given - Provid er: Addison Escalona RN) HYDROmorphone (DILAUDID) injection 1 mg (COMPLETED) 1 mg, Intramuscular, Once, 1 dose, On Mon11/17/20 at 1100, Administer slowly over at least 2-3 minutes. 1101 (Given - Provid er: Addison Escalona RN) HYDROmorphone (DILAUDID) injection 1 mg (COMPLETED) 1 mg, Intramuscular, Once, 1 dose, On Mon11/17/20 at 1215, Administer slowly over at least 2-3 minutes. 1237 (Given - Provid er: Addison Escalona RN) ondansetron (ZOFRAN-ODT) disintegrating tablet 4 mg (COMPLETED) 4 mg, Oral, Once, 1 dose, On Mon11/17/20 at 1100 1102 (Given - Provid er: Addison Escalona RN) documented in this encounter Care Teams Cloud Systems Architect Relationship Specialty Start Date End Date Hermes Ramirez III, MD [facility] [address] [address] PCP - General FAMILY PRACTICE 06/20/17 documented as of this encounter
--- OUTSIDE RECORDS SUMMARY | 2024-03-20 11:52 | XMS_ITS | Encounter Summary ---
Author Organization [facility] Address [address] [place] [address]. [place], [place] [id number] [place] [address] Care Team Providers Care Drafter Construction Name Role Phone Ashley ZUNIGA MD, Hermes Perez Primary Care Provid er Reason for Visit * Imaging (Routine) - Closed Specialty Diagnoses / Procedures Referred By Esvin gaspar Referred To Contact RADIOLOGY Diagnoses Other halfway (current) drug therapy Kidney transplant status (HHS/HCC) Encounter for aftercare following kidney transplant (HHS/HCC) Liver transplant status (CMS/HCC HHS/HCC) UTI (urinary tract infection) Procedures MRI ABD WWO CON MRI ABD WWO CON Allen Manzano PA [address] [address] Phone: tel: fax: Referral ID Status Reason Start Date Expiration Date Visits Re quested Visits Authorized [id number] Closed 06/02/2021 11/18/2021 1 1 Encounter Details Date Type Department Care Team (Latest Contact Info) Description 06/14/2021 3:50 PM CDT - 06/14/2021 11:59 PM CDT Hospital Encounter [facility] [address] [place] [address] Allen Manzano PA [address] [address] Discharge Disposition: Home or Self Care (Routine [...] file Legal Sex Female 9:15 PM MANAGER OF REGULATORY AFFAIRS Gender Identity Not on file Sexual Orientation Not on file COVID-19 Exposure Response Date Recorded In the last 10 days, have yo u been in contact with someone who was confirmed or suspected to have Coronavirus/COVID-19? No / Unsure 06/14/2021 3:49 PM CDT documented as of this encounter Medications at [...] 02/06/2017 3 documented as of this encounter Plan of Treatment Not on file documented as of this encounter Procedures Procedure Name Priority Date/Time Associated Diagnosis Comments MRI ABD WWO CON Routine 06/14/2021 5:31 PM CDT Other halfway (current) drug therapy Kidney transplant status (HHS/HCC) Encounter for aftercare following kidney transplant (HHS/HCC) Liver transplant status (CMS/HCC HHS/HCC) UTI (urinary tract infection) documented in this encounter Results * MRI ABD WWO CON (06/14/2021 5:31 PM CDT) Anatomical Region Laterality Modality Abdomen Magnetic Resonan ce Impressions 06/15/2021 3:57 PM CDT Impression: 1. The liver demonstrates a relatively normal morphology with no distinct hepatic lesions identified. There is nonspecific intrahepatic biliary dilation involving the left lobe of the liver. No distinct reason for biliary obstruction is seen on this exam. Could further correlate with an MRCP. 2. The iliamna kidneys are atrophic bilaterally. No solid mass or hydronephrosis. 3. The right iliac fossa transplant kidney enhances normally and there is no hydronephrosis or perinephric fluid collection. 4. Mild splenomegaly. 5. Large dilated serpiginous vessels within the left upper quadrant consistent with varices. This has the appearance of a splenorenal shunt and appear similar to the previous CT from 2018. The attending radiologist has reviewed the image(s) and agrees with the content of this report. Ordered By: PROVIDER NON-STAFF Interpreted By: Anatoly Martínez DO, 06/15/2021 9:31 AM Narrative 06/15/2021 3:57 PM CDT Examination: MR abdomen without and with contrast. Clinical Information:Kidney transplant status, Encounter for aftercare following kidney transplant, Liver transplant status Comparison: CT abdomen and pelvis 06/21/2019 Technique: Sequences: Multiplanar, multisequence MR images of the abdomen and pelvis were obtained before and after the administration of 9 mL of Eovist. Findings: LIVER: Morphology: Normal. Hepatic steatosis: Absent. Iron overload: Absent. Focal liver lesion(s): None. Hepatic vasculature: Hepatic and portal veins are normally patent. GALLBLADDER AND BILIARY TREE: Gallbladder surgically absent. There is mild intrahepatic biliary dilation isolated to the left lobe of the liver. This is of uncertain etiology. No definite biliary obstruction is visualized on this study. The extrahepatic biliary tree is not well evaluated on this study. PANCREAS: Normal. No pancreatic ductal dilatation. SPLEEN: Mild hepatomegaly spanning 13.5 cm craniocaudal. ADRENAL GLANDS: The left adrenal gland is not well seen. The right adrenal gland appears unremarkable. KIDNEYS: [place] kidneys appear atrophic with symmetric enhancement. No definite solid mass or hydronephrosis. The transplant kidney is seen in the right iliac fossa and appears normal. No perinephric fluid. No mass. GASTROINTESTINAL: No bowel obstruction or inflammatory changes are identified. FREE FLUID: None. VASCULATURE: The abdominal aorta is normal in caliber. 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 LYMPH NODES: No abdominal retroperitoneal or mesenteric lymphadenopathy. LOWER CHEST: Heart is normal in size. The lung bases are clear. No pleural or pericardial effusions. BONES: No suspicious osseous lesions. Allen EDMOND MRI Edited Result - Final documented in this encounter Visit Diagnoses Diagnosis Other packer operator automatic (current) drug therapy Kidney transplant status (HHS/HCC) Encounter for aftercare following kidney transplant (HHS/HCC) Aftercare following organ transplant Liver transplant status (CMS/HCC HHS/HCC) UTI (urinary tract infection) Urinary tract infection, site not specified documented in this encounter Administered Medications Inactive Administered Medications - up to 3 most recent administrations Medication Order MAR Action Action Date Dose Rate Site gadoxetate disodium (EOVIST) 0.25 MOL/L injection 9 mL 9 mL, Intravenous, IMG once as needed, Contrast, 1 dose, Starting on Mon06/14/21 at 1719, Until Mon06/14/21 at 1720 Given 06/14/2021 5:20 PM CDT 9 mLs documented in this encounter Care Teams Drafter Construction Relationship Specialty Start Date End Date Hermes Ramirez III, MD [address] [facility] [address] [place] [address] PCP - General FAMILY PRACTICE 06/20/17 documented as of this encounter
--- OUTSIDE RECORDS SUMMARY | 2024-03-20 11:52 | XMS_ITS | Encounter Summary ---
Author Organization [facility] Address [address] [place] [address]. [place], [place] [address] [place] [address] Care Team Providers Care Gis Coordinator Name Role Phone Ashley ZUNIGA MD, Hermes Perez Primary Care Provid er Reason for Visit * Reason Onset Date Comments Update 06/09/2020 Encounter Details Date Type Department Care Team (Late st Contact Info) Description 06/09/2020 Telephone [facility] [employer] [place] [address] Belinda Us MD [address] [place] [address] Update Social History Tobacco Use Types Packs/Day Years Used Date Smoking Tobacco: Every Day Cigarettes 0.5 15 Smokeless Tobacco: Never Alcohol Use Standard Drinks/Week Comments No 0 (1 standard drink = 0.6 oz pur e alcohol) Comments No Sex and Gender Information Value Date Recorded Sex Assigned at Not on file Legal Sex Female 9:15 PM 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 Gender Identity Not on file Sexual Orientation Not on file documented as of this encounter Progress Notes * Belinda sU MD - 06/09/2020 5:43 PM CDT Note from [facility] noted 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 [address] [place] [address] PCP - General FAMILY PRACTICE 06/20/17 documented as of this encounter
--- OUTSIDE RECORDS SUMMARY | 2024-03-20 11:52 | XMS_ITS | Encounter Summary ---
Author Organization [facility] Address [address] [place] [address]. [place], [place] [address] [place] [address] Care Team Providers Care Caustic Preparer Name Role Phone Ashley ZUNIGA MD, Hermes Perez Primary Care Provid er Encounter Details Date Type Department Care Team (Latest Contact Info) Description 12/02/2021 Travel Social History Tobacco Use Types Packs/Day Years Used Date Smoking Tobacco: Every Day Cigarettes 0.5 15 Smokeless Tobacco: Never Alcohol Use Standard Drinks/Week Comments No 0 (1 standard drink = 0.6 oz pur e alcohol) Comments No Sex and Gender Information Value Date Recorded Sex Assigned at Not on file Legal Sex Female 9:15 PM TIRE GROOVER Gender Identity Not on file Sexual Orientation Not on file COVID-19 Exposure Response Date Recorded In the last 10 days, have yo u been in contact with someone who was confirmed or suspected to have Coronavirus/COVID-19? No / Unsure 12/02/2021 10:40 AM CDT documented as of this encounter Plan of Treatment Not on file documented as of this encounter Visit Diagnoses Not on filedocumented in this encounter Care Teams Caustic Preparer Relationship Specialty Start Date End Date Hermes Ramirez III, MD [address] [facility] [address] [place] [address] PCP - General FAMILY PRACTICE 06/20/17 documented as of this encounter
--- OUTSIDE RECORDS SUMMARY | 2024-03-20 11:52 | XMS_ITS | Encounter Summary ---
Author Organization [facility] Address [address] [place] [address]. [place], [place] [id number] [place] [address] Care Team Providers Care Vehicle Modification Technician Name Role Phone Ashley ZUNIGA MD, Hermes Perez Primary Care Provid er Encounter Details Date Type Department Care Team (Latest Contact Info) Description 11/17/2020 Travel Social History Tobacco Use Types Packs/Day Years Used Date Smoking Tobacco: Every Day Cigarettes 0.5 15 Smokeless Tobacco: Never Alcohol Use Standard Drinks/Week Comments No 0 (1 standard drink = 0.6 oz pur e alcohol) Comments No Sex and Gender Information Value Date Recorded Sex Assigned at Not on file Legal Sex Female 9:15 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
--- OUTSIDE RECORDS SUMMARY | 2024-03-20 11:52 | XMS_ITS | Encounter Summary ---
Author Organization [facility] Address [address] [place] [address]. [place], [place] [address] [place] [address] Care Team Providers Care Transmitter Chief Name Role Phone Ashley ZUNIGA MD, Hermes Perez Primary Care Provid er Encounter Details Date Type Department Care Team (Late st Contact Info) Description 06/18/2020 Scan [facility] [address] [place] [address] Scanned, Documents Social History Tobacco Use Types Packs/Day Years Used Date Smoking Tobacco: Every Day Cigarettes 0.5 15 Smokeless Tobacco: Never Alcohol Use Standard Drinks/Week Comments No 0 (1 standard drink = 0.6 oz pur e alcohol) Comments No Sex and Gender Information Value Date Recorded Sex Assigned at Not on file Legal Sex Female 9:15 PM 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
--- OUTSIDE RECORDS SUMMARY | 2024-03-20 11:52 | XMS_ITS | Encounter Summary ---
Author Organization [facility] Address [address] [place] [address]. [place], [place] [address] [place] [address] Care Team Providers Care Sheet Metal Installer Name Role Phone Ashley ZUNIGA MD, Hermes Perez Primary Care Provid er Reason for Visit * Reason Comments Headache Nausea Encounter Details Date Type Department Care Team (Late st Contact Info) Description 04/26/2022 11:36 AM GRAIN MERCHANDISING MANAGER - 04/26/2022 11:53 AM GRAIN MERCHANDISING MANAGER Emergency [facility] Emergency [address] [place] [address] Aneta Menjivar MD [address] [place] [address] Headache; Nausea Discharge Disposition: Left Against Medical Advice Social History Tobacco Use Types Packs/Day Years Used Date Smoking Tobacco: Every Day Cigarettes 0.5 15 Smokeless Tobacco: Never Alcohol Use Standard Drinks/Week Comments No 0 (1 standard drink = 0.6 oz pur e alcohol) Comments No Sex and Gender Information Value Date Recorded Sex Assigned at Not on file Legal Sex Female 9:15 PM GRAIN MERCHANDISING MANAGER Gender Identity Not on file Sexual Orientation Not on file COVID-19 Exposure Response Date Recorded In the last 10 days, have yo u been in contact with someone who was confirmed or suspected to have Coronavirus/COVID-19? No / Unsure 04/26/2022 10:57 AM GRAIN MERCHANDISING MANAGER documented as of this encounter Last Filed Vital Signs Vital Sign Reading Time Taken Comments Blood Pressure 121/74 04/26/2022 11:08 AM GRAIN MERCHANDISING MANAGER Pulse 80 04/26/2022 11:08 AM GRAIN MERCHANDISING MANAGER Temperature 37.2 ??C (99 ??F) 04/26/2022 11:08 AM GRAIN MERCHANDISING MANAGER Respiratory Rate 16 04/26/2022 11:08 AM GRAIN MERCHANDISING MANAGER Oxygen Saturation 100% 04/26/2022 11:08 AM GRAIN MERCHANDISING MANAGER Inhaled Oxygen Concentration - - Weight 83 kg (182 lb 15.7 oz) 04/26/2022 11:08 A M GRAIN MERCHANDISING MANAGER Height 157.5 cm (5' 2 ) 04/26/2022 11:08 AM GRAIN MERCHANDISING MANAGER Body Mass Index 33.47 04/26/2022 11:08 AM GRAIN MERCHANDISING MANAGER documented in this encounter Medications at Time [...] as of this encounter ED Notes * Aneta Menjivar MD - 04/26/2022 11:45 AM CST Chief Complaint Chief Complaint Patient presents with ??? Headache ??? Nausea History of Present Illness 41-year-old female returns to the emergency department with complaints of right- sided headache which is radiating down her neck. She was seen last week with the same complaint. The patient is currently being worked up as an outpatient by neurosurgery has had MRIs and is being referred to pain clinic due to recurrent headaches. Patient states this headache is the same as her previous ones she was seen last week given Dilaudid Benadryl Reglan and returns today with the same complaints. Pain is right-sided 10 out of 10 in severity associated with nausea photophobia. Pain is sharp in quality constant no radiation no relieving features. Medical History ALLERGIES: Allergies Allergen Reactions ??? [...] Social History Tobacco Use ??? Smoking status: Every Day Packs/day: 0.50 Years: 15.00 Pack years: 7.50 Types: Cigarettes ??? Smokeless tobacco: Never Substance Use Topics ??? Alcohol use: No ??? Drug use: No Review of Systems Review of Systems A 10 point review of systems was obtained and negative or noncontributory to the patient's chief complaint except as noted in hpi Physical Exam Filed Vitals: 04/26/22 1108 BP: 121/74 Pulse: 80 Resp: 16 Temp: 99 ??F (37.2 ??C) TempSrc: Oral SpO2: 100% Weight: 83 kg (182 lb 15.7 oz) Height: 5' 2 (1.575 m) Physical Exam Constitutional and psychiatric: Patient is [...] No results found for this visit on 04/26/22. LABORATORY STUDIES: No results found for this visit on 04/26/22. IMAGING STUDIES No orders to display ED Course / Medical Decision Making Due to the fact that the narcotics seems to have failed and she returned pretty soon after treatment last week. I have offered her IV fluids and droperidol for her headache. Patient declined treatment. I explained to her my reluctance to use more narcotics seeing as though it seems to have failed management and the patient asked if she could leave. Medications - No data to display Clinical Impression Headache (Primary) Chronic pain Disposition: Eloped Discharge Medication List as of 04/26/2022 11:53 AM ANETA MENJIVAR MD 04/27/2022 Aneta Menjivar MD 04/27/22 [address] MERCHANDISING MANAGER * Makenna Silva RN - 04/26/2022 10:57 AM CST PT ARRIVES TO TRIAGE WITH C/O MIGRAINE AND NAUSEA SINCE LAST NIGHT. N MERCHANDISING MANAGER documented in this encounter Plan of Treatment Not on file documented as of this encounter Visit Diagnoses Diagnosis Headache- Primary Chronic pain Other chronic pain documented in this encounter Care Teams Sheet Metal Installer Relationship Specialty Start Date End Date Hermes Ramirez III, MD [address] [address] PCP - General FAMILY PRACTICE 06/20/17 documented as of this encounter
--- OUTSIDE RECORDS SUMMARY | 2024-03-20 11:52 | XMS_ITS | Encounter Summary ---
Author Organization [facility] Address [address] [place] [address]. [place], [place] [address] [place] [address] Care Team Providers Care Sole Layer Hand Name Role Phone Ashley ZUNIGA MD, Hermes Perez Primary Care Provid er Encounter Details Date Type Department Care Team (Latest Contact Info) Description 06/14/2021 Travel Social History Tobacco Use Types Packs/Day Years Used Date Smoking Tobacco: Every Day Cigarettes 0.5 15 Smokeless Tobacco: Never Alcohol Use Standard Drinks/Week Comments No 0 (1 standard drink = 0.6 oz pur e alcohol) Comments No Sex and Gender Information Value Date Recorded Sex Assigned at Not on file Legal Sex Female 9:15 PM DEVELOPMENT 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
--- OUTSIDE RECORDS SUMMARY | 2024-03-20 11:52 | XMS_ITS | Encounter Summary ---
Author Organization [facility] Address [address] [place] [address]. [place], [place] [address] [place] [address] Care Team Providers Care Feed And Farm Management Adviser Name Role Phone Ashley ZUNIGA MD, Hermes Perez Primary Care Provid er Reason for Visit * Reason Onset Date Comments Fax 04/30/2020 Encounter Details Date Type Department Care Team ([facility] Contact Info) Description 04/30/2020 [place] [address] None, Provider, Fax Social History Tobacco Use Types Packs/Day Years Used Date Smoking Tobacco: Every Day Cigarettes 0.5 15 Smokeless Tobacco: Never Alcohol Use Standard Drinks/Week Comments No 0 (1 standard drink = 0.6 oz pur e alcohol) Comments No Sex and Gender Information Value Date Recorded Sex Assigned at Not on file Legal Sex Female 9:15 PM DOCK 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 No / Unsure 04/15/2020 9:53 AM DOCK WORKER documented as of this encounter Progress Notes * Tara Mckeon - 04/30/2020 1:[address] Diaz called need to get the pt records yuly I believe she said she is on the donor list Can you please fax what she need to request is in the media WORKER documented in this encounter Plan of Treatment Not on file documented as of this encounter Visit Diagnoses Not on filedocumented in this encounter Care Teams Feed And Farm Management Adviser Relationship Specialty Start Date End Date Hermes Ramirez III, MD [address] [facility] [address] [place] [address] PCP - General FAMILY PRACTICE 06/20/17 documented as of this encounter
--- OUTSIDE RECORDS SUMMARY | 2024-03-20 11:52 | XMS_ITS | Encounter Summary ---
Author Organization [facility] Address [address] [place] [address]. [place], [place] [address] [place] [address] Care Team Providers Care Senior Applications Developer Name Role Phone Ashley ZUNIGA MD, Hermes Perez Primary Care Provid er Encounter Details Date Type Department Care Team (Latest Contact Info) Description 04/19/2022 Travel Social History Tobacco Use Types Packs/Day Years Used Date Smoking Tobacco: Every Day Cigarettes 0.5 15 Smokeless Tobacco: Never Alcohol Use Standard Drinks/Week Comments No 0 (1 standard drink = 0.6 oz pur e alcohol) Comments No Sex and Gender Information Value Date Recorded Sex Assigned at Not on file Legal Sex Female 9:15 PM LANGUAGE INTERPRETER Gender Identity Not on file Sexual Orientation Not on file COVID-19 Exposure Response Date Recorded In the last 10 days, have yo u been in contact with someone who was confirmed or suspected to have Coronavirus/COVID-19? No / Unsure 04/19/2022 8:52 AM LANGUAGE INTERPRETER documented as of this encounter Plan of Treatment Not on file documented as of this encounter Visit Diagnoses Not on filedocumented in this encounter Care Teams Senior Applications Developer Relationship Specialty Start Date End Date Hermes Ramirez III, MD [address] [facility] [address] [place] [address] PCP - General FAMILY PRACTICE 06/20/17 documented as of this encounter
--- OUTSIDE RECORDS SUMMARY | 2024-03-20 11:52 | XMS_ITS | Encounter Summary ---
Author Organization [facility] Address [address] [place] [address]. [place], [place] [id number] [place] [id number] Care Team Providers Care Staking Technician Name Role Phone Ashley ZUNIGA MD, Hermes Perez Primary Care Provid er Reason for Visit * Reason Comments Headache Recurrent Or Know Dx Migraine Encounter Details Date Type Department Care Team (Late st Contact Info) Description 04/19/2022 9:00 AM DECORATING SUPERVISOR - 04/19/2022 11:08 AM DECORATING SUPERVISOR Emergency [facility] Emergency [address] [place] [address] Merry Crews, NEUROPSYCHOLOGY SERVICE DIRECTOR [address] [place] [id number] Headache Recurrent Or Know Dx Migraine Discharge [...] on file Legal Sex Female 9:15 PM DECORATING SUPERVISOR Gender Identity Not on file Sexual Orientation Not on file COVID-19 Exposure Response Date Recorded In the last 10 days, have yo u been in contact with someone who was confirmed or suspected to have Coronavirus/COVID-19? No / Unsure 04/19/2022 8:52 AM DECORATING SUPERVISOR documented as of this encounter Last Filed Vital Signs Vital Sign Reading Time Taken Comments Blood Pressure 139/102 04/19/2022 11:00 AM DECORATING SUPERVISOR Pulse 82 04/19/2022 11:00 AM DECORATING SUPERVISOR Temperature 36.9 ??C (98.4 ??F) 04/19/2022 8:55 AM CS T Respiratory Rate 14 04/19/2022 11:00 AM DECORATING SUPERVISOR Oxygen Saturation 99% 04/19/2022 11:00 AM DECORATING SUPERVISOR Inhaled Oxygen Concentration - - Weight 84 kg (185 lb 3 oz) 04/19/2022 8:58 AM CS T Height 157.5 cm (5' 2 ) 04/19/2022 8:55 AM DECORATING SUPERVISOR Body Mass Index 33.87 04/19/2022 8:55 AM DECORATING SUPERVISOR documented in this encounter Discharge Instructions * Discharge Instructions* Merry Crews NP - 04/19/2022 10:47 AM DECORATING SUPERVISOR Migraine Discharge Instructions 1. Go home and rest in a cool, quiet, dark place. 2. You were given medications in the ED today which cause drowsiness - please do not carry an , drive a car, operate machinery or engage in activities that require you to be alert for the next six hours. 3. Attempt to figure out triggers for your headache. Avoid common triggers of headache such as lackof sleep, anxiety, sunlight, lack of food, too much food or caffeine, cheese, yogurt, chocolate, wine, and certain smells. Try to avoid MSG which is commonly found in [place] foods. 4. Consume at least two liters of fluid daily-prefer water; avoid caffeine, carbonated beverages and high sugar content. 5. If prescribed medications, fill them and take as directed. 6. Follow with your doctor or doctor referral, call for appointment next business day for ED followup in 7-10 days. Be sure to maintain your scheduled appointment with your neurologist this coming Monday to begin new migraine management. 7. Return to the Emergency Department for new or worsening symptoms. Please read and follow additional written instructions provided RATING SUPERVISOR * Attachments The following attachments cannot be sent through Care Everywhere. * How to Keep Track of Your Headaches (Citizen Of [place]) * Migraines Discharge Instructions ([place]izen [place]) * Home Headache Remedies (Citizen [place]) documented in this encounter Medications at Time [...] 02/06/2017 3 documented as of this encounter Nursing Notes * Mikala Stock RN - 04/19/2022 9:56 AM CST Pain is 6/10 - wondering if they will give me more pain meds 1025 - Pain continues at 6/10, only a little relief from other meds, I'm not nauseated anymore Dilaudid 1mg 1040 - I'm good, my pain is a 3/10 Provider aware RATING SUPERVISOR RATING SUPERVISOR RATING SUPERVISOR documented in this encounter ED Notes * Merry Crews NP - 04/19/2022 9:06 AM CST ED PROVIDER NOTE Chief Complaint Chief Complaint Patient presents with ??? Headache Recurrent Or Know Dx Migraine History of Present Illness Elsa Browne is a 41-year-old female who presents with a migraine which began last night. She has a history of migraines and liver transplant x2 and kidney transplant for which she has had to have her anti-rejection medications increased which have caused her to have more intense migraines. She reports that she takes Fioricet but it has not been helping. She states she has an appointment with a Neurologist in [place] soon to address her migraines. She reports this has been her typical migraine pain and is not experiencing any abnormal symptoms. Medical History ALLERGIES: Allergies Allergen Reactions ??? [...] Systems Constitutional: Negative for chills and fever. Eyes: Positive for photophobia and pain. Gastrointestinal: Positive for nausea. Negative for abdominal distention, abdominal pain and vomiting. Neurological: Positive for headaches. Negative for dizziness, seizures, weakness and light-headedness. All other systems reviewed and are negative. Physical Exam Filed Vitals: 04/19/22 0855 04/19/22 0858 BP: 131/78 Pulse: 78 Resp: 18 Temp: 98.4 ??F (36.9 ??C) TempSrc: Oral SpO2: 99% Weight: 84 kg (185 lb 3 oz) 84 kg (185 lb 3 oz) Height: 5' 2 (1.575 m) Physical Exam Vitals and nursing note reviewed. Constitutional: Appearance: Normal appearance. She is normal weight. HENT: Head: Normocephalic. Right Ear: Hearing normal. Left Ear: Hearing normal. Eyes: General: Lids are normal. Vision grossly intact. Cardiovascular: Rate and Rhythm: Normal rate and regular rhythm. Pulses: Normal pulses. Heart sounds: Normal heart sounds. Pulmonary: Effort: Pulmonary effort is normal. Breath sounds: Normal breath sounds. Musculoskeletal: Cervical back: Normal range of motion and neck supple. Neurological: General: No focal deficit present. Mental Status: She is alert and oriented to person, place, and time. Mental status is at baseline. Psychiatric: Mood and Affect: Mood normal. Behavior: Behavior normal. Thought Content: Thought content normal. Judgment: Judgment normal. Diagnostic Studies / Procedures ELECTROCARDIOGRAMS: No results found for this visit on 04/19/22. LABORATORY STUDIES: No results found for this visit on 04/19/22. IMAGING STUDIES No orders to display ED Course / Medical Decision Making Medical Decision Making Brief HPI: Elsa Browne presents with complaint of migraine, photophobia, phonophobia, and nause Treatment course: Reports that typically zofran benadryl and either morphine or dilaudid work to abort her migraine 0915 will order zofran, bendadryl, and morphine as well as 500 mL IVF bolus. 1010 migraine remains, will give additional 25 mg benadryl and 1 mg dilaudid Introductions were completed at the bedside, I identified myself as a SANDWICH MACHINE OPERATOR and verbal consent for medical evaluation was obtained. Possibe critical diagnoses associated with patient's presenting symptoms were discussed with the patient and/or the patient special service representative. Risks and benefits of the proposed diagnostic work up and treatment plan were discussed at the bedside. Patient and/or special service representative verbalized understanding and agreement. Discussed all results and incidental findings with thepatient. Supportive measures discussed. Signs and symptoms to monitor for, reasons to return to theemergency department, discharge, and follow-up instructions given to patient. Patient verbalized und erstanding, denies further questions, and agrees with plan. VSS at discharge. Unless otherwise documented, the patient was not assessed or treated by the attending physician during this encounter. Attending: Dr. Menjivar. Migraine: acute illness or injury Risk OTC drugs. Prescription drug management. ED Course as of 04/19/22 1049 Tue Apr 19, 2022 0915 Will give 500 mL, benadryl, zofran and morphine for migraine [] 1010 Bolus completed, migraine still 08/27. Will repeat benadryl and give 1 mg dilaudid [] 1044 Migraine resolved, will set up for discharge. [] ED Course User Index [] Merry Crews, ELISA Medications normal saline 0.9 % flush 3-10 mL (3 mLs Intravenous Not Given 04/19/22929) normal saline 0.9 % flush 3-10 mL (10 mLs Intravenous Given 04/19/22 1022) sodium chloride 0.9% bolus infusion 500 mL (0 mLs Intravenous Infusion Stop Time 04/19/22 0956) ondansetron (ZOFRAN) injection 4 mg (4 mg Intravenous Given 04/19/2230) morphine injection 2 mg (2 mg Intravenous Given 04/19/2231) diphenhydrAMINE (BENADRYL) injection 25 mg (25 mg Intravenous Given 04/19/22 0931) HYDROmorphone (DILAUDID) injection 1 mg (1 mg Intravenous Given 04/19/22 1024) diphenhydrAMINE (BENADRYL) injection 25 mg (25 mg Intravenous Given 04/19/22 1022) Clinical Impression Migraine (Primary) Disposition: Discharge Current Discharge Medication List Follow-up: Hermes Ramirez III, MD [address] [facility] [facility] [address] [facility] [address] In 2 weeks For follow up after your ER visit MERRY CREWS NP 04/19/2022 Merry Crews NP 04/19/22 1050 Cosigned by Danish Menjivar MD at 04/19/2022 4:47 PM DECORATING SUPERVISOR RATING SUPERVISOR RATING SUPERVISOR * Hilda Cleveland RN - 04/19/2022 8:50 AM CST Pt to ED via POV with c/o having a migraine since last night. She has a known history of this. She is CAOx4 at triage. RATING SUPERVISOR documented in this encounter Plan of Treatment [...] 25 mg, Intravenous, Once, 1 dose, On Mon04/19/22 at 0915, For IV administration, give no faster than 25 mg/min. Given 04/19/2022 9:31 AM DECORATING SUPERVISOR 25 mg diphenhydrAMINE (BENADRYL) injection 25 mg 25 mg, Intravenous, Once, 1 dose, On Mon04/19/22 at 1015, For IV administration, give no faster than 25 mg/min. Given 04/19/2022 10:22 AM DECORATING SUPERVISOR 25 mg HYDROmorphone (DILAUDID) injection 1 mg 1 mg, Intravenous, Once, 1 dose, On Mon04/19/22 at 1015, Administer slowly over at least 2-3 minutes. Given 04/19/2022 10:24 AM DECORATING SUPERVISOR 1 mg morphine injection 2 mg 2 mg, Intravenous, Once, 1 dose, On Mon04/19/22 at 0915 Given 04/19/2022 9:31 AM DECORATING SUPERVISOR 2 mg normal saline 0.9 % flush 3-10 mL 3-10 mL, Intravenous, Every 8 hours, First dose on Mon04/19/22 at 0915, Until Discontinued normal saline 0.9 % flush 3-10 mL 3-10 mL, Intravenous, As needed, Line care, Starting on Mon04/19/22 at 0908, Until Mon04/19/22 at 1314 Given 04/19/2022 10:22 AM DECORATING SUPERVISOR 10 mLs Given 04/19/2022 9:23 AM DECORATING SUPERVISOR 10 mLs ondansetron (ZOFRAN) injection 4 mg 4 mg, Intravenous, Once, 1 dose, On Mon04/19/22 at 0915, IV push over 2-5 minutes. Given 04/19/2022 9:30 AM DECORATING SUPERVISOR 4 mg sodium chloride 0.9% bolus infusion 500 mL 500 mL, Intravenous, Administer over 15 Minutes, Once, 1 dose, On Mon04/19/22 at 0915 New Bag 04/19/2022 9:30 AM DECORATING SUPERVISOR 500 mLs documented in this encounter Active and Recently Administered Medications Times are shown in DECORATING SUPERVISOR. Scheduled Medication Order 04/17/2022 04/18/2022 04/19/2022 diphenhydrAMINE (BENADRYL) injection 25 mg (COMPLETED) 25 mg, Intravenous, Once, 1 dose, On Mon04/19/22 at 0915, For IV administration, give no faster than 25 mg/min. 0931 (Given - Provid er: Mikala Stock RN) diphenhydrAMINE (BENADRYL) injection 25 mg (COMPLETED) 25 mg, Intravenous, Once, 1 dose, On Mon04/19/22 at 1015, For IV administration, give no faster than 25 mg/min. 1022 (Given - Provid er: Mikala Stock RN) HYDROmorphone (DILAUDID) injection 1 mg (COMPLETED) 1 mg, Intravenous, Once, 1 dose, On Mon04/19/22 at 1015, Administer slowly over at least 2-3 minutes. 1024 (Given - Provid er: Mikala Stock RN) morphine injection 2 mg (COMPLETED) 2 mg, Intravenous, Once, 1 dose, On Mon04/19/22 at 0915 0931 (Given - Provid er: Mikala Stock RN) normal saline 0.9 % flush 3-10 mL 3-10 mL, Intravenous, Every 8 hours, First dose on Mon04/19/22 at 0915, Until Discontinued 0930 (Not Given - Pr ovider: Mikala Stock RN - Reason: Other) ondansetron (ZOFRAN) injection 4 mg (COMPLETED) 4 mg, Intravenous, Once, 1 dose, On Mon04/19/22 at 0915, IV push over 2-5 minutes. 0930 (Given - Provid er: Mikala Stock RN) sodium chloride 0.9% bolus infusion 500 mL (COMPLETED) 500 mL, Intravenous, Administer over 15 Minutes, Once, 1 dose, On Mon04/19/22 at 0915 0930 (New Bag - Prov ider: Mikala Stock RN)0956 (Infusion Stop Time - Provider: Mikala Stock RN) PRN Medication Order 04/17/2022 04/18/2022 04/19/2022 normal saline 0.9 % flush 3-10 mL 3-10 mL, Intravenous, As needed, Line care, Starting on Mon04/19/22 at 0908, Until Mon04/19/22 at 1314 0923 (Given - Provid er: Mikala Stock RN)1022 (Given - Provider: Mikala Stock RN) documented in this encounter Care Teams Staking Technician Relationship Specialty Start Date End Date Hermes Ramirez III, MD [address] [facility] [address] [place] [address] PCP - General FAMILY PRACTICE 06/20/17 documented as of this encounter
--- OUTSIDE RECORDS SUMMARY | 2024-03-20 11:53 | XMS_ITS | Encounter Summary ---
Author Organization [facility] Address [address] [place] [address]. [place], [place] [id number] [place] [address] Care Team Providers Care Railroad Car Painter Name Role Phone Ashley ZUNIGA MD, Hermes Perez Primary Care Provid er Encounter Details Date Type Department Care Team (Late st Contact Info) Description 04/14/2020 Scan [facility] [address] [place] [id number] Scanned, Documents Social History Tobacco Use Types Packs/Day Years Used Date Smoking Tobacco: Every Day Cigarettes 0.5 15 Smokeless Tobacco: Never Alcohol Use Standard Drinks/Week Comments No 0 (1 standard drink = 0.6 oz pur e alcohol) Comments No Sex and Gender Information Value Date Recorded Sex Assigned at Not on file Legal Sex Female 9:15 PM BASS FISHER Gender Identity Not on file Sexual Orientation Not on file COVID-19 Exposure Response Date Recorded In the last month, have you been in contact with someone who was confirmed or suspected to have Coronavirus / COVID-19? No / Unsure 04/15/2020 9:53 AM BASS FISHER documented as of this encounter Plan of Treatment Not on file documented as of this encounter Visit Diagnoses Not on filedocumented in this encounter Care Teams Railroad Car Painter Relationship Specialty Start Date End Date Hermes Ramirez III, MD [address] [facility] [address] [place] [address] PCP - General FAMILY PRACTICE 06/20/17 documented as of this encounter
--- OUTSIDE RECORDS SUMMARY | 2024-03-20 11:53 | XMS_ITS | Encounter Summary ---
Author Organization [facility] Address [address] [place] [address]. [place], [place] [id number] [place] [id number] Care Team Providers Care Tractor Driver Teamster Name Role Phone Ashley ZUNIGA MD, Hermes Perez Primary Care Provid er Reason for Visit * Reason Comments Headache Encounter Details Date Type Department Care Team (Late st Contact Info) Description 03/30/2020 8:03 PM ROUTE SERVICE MANAGER - 03/30/2020 10:39 PM ROUTE SERVICE MANAGER Emergency [facility] [address] [place] [address] Jamison [place], [place] [address] [place] [address] Headache Discharge Disposition: Home or Self Care [...] on file Legal Sex Female 9:15 PM ROUTE SERVICE MANAGER Gender Identity Not on file Sexual Orientation Not on file COVID-19 Exposure Response Date Recorded In the last month, have you been in contact with someone who was confirmed or suspected to have Coronavirus / COVID-19? Yes 03/30/2020 3:08 PM ROUTE SERVICE MANAGER documented as of this encounter Last Filed Vital Signs Vital Sign Reading Time Taken Comments Blood Pressure 121/70 03/30/2020 8:27 PM ROUTE SERVICE MANAGER Pulse 82 03/30/2020 8:27 PM ROUTE SERVICE MANAGER Temperature 36.7 ??C (98 ??F) 03/30/2020 8:27 PM ROUTE SERVICE MANAGER Respiratory Rate 16 03/30/2020 8:27 PM ROUTE SERVICE MANAGER Oxygen Saturation 100% 03/30/2020 8:27 PM ROUTE SERVICE MANAGER Inhaled Oxygen Concentration - - Weight 72.6 kg (160 lb) 03/30/2020 3:09 PM ROUTE SERVICE MANAGER Height 157.5 cm (5' 2 ) 03/30/2020 3:09 PM ROUTE SERVICE MANAGER Body Mass Index 29.26 03/30/2020 3:09 PM ROUTE SERVICE MANAGER documented in this encounter Discharge Instructions * Discharge Instructions* MAYITO Levine - 03/30/2020 9:46 PM ROUTE SERVICE MANAGER Plenty of fluids. You must quarantine at home until you receive COVID-19 results. Wear a mask when you are around other people. If results are positive you must quarantine at home for at least 10 days and symptoms have resolved for at least 3 days which ever is longer. COVID-19 results take 1-3 days. You will be notified of your results if they are positive. Contact your primary physician tomorrow to report condition and for follow-up instructions. Contactyour physician or return if symptoms worsen, or other concerns. E SERVICE MANAGER documented in this encounter Medications at Time of Discharge metoprolol succinate ER (TOPROL-XL) 100 MG 24 hr tablet Take 1 tablet (100 mg total) by mouth 2 (two) times a day. 12/30/2019 butorphanol 10 MG/ML nasal spray by Nasal route every 4 (four) hours as needed. 04/15/2020 butorphanol 10 MG/ML nasal sprayIndications: Acute Pain < 7 Day Supply 1 spray by Nasal route every 6 (six) hours as needed for Pain. Indications: Acute Pain < 7 Day Supply 2.5 mL 02/26/2020 04/15/2020 promethazine 12.5 MG tablet Take 1 tablet (12.5 mg total) by mouth every 6 (six) hours as needed for Nausea. 30 tablet 02/26/2020 04/15/2020 SODIUM BICARBONATE 650 MG tablet TAKE 2 TABLETS BY MOUTH 3 (THREE) TIMES A DAY. PT NEEDS A FOLLOW UP 540 tablet 1 09/30/2019 07/22/2023 tacrolimus (PROGRAF) 1 MG capsule Take 1 tablet by mouth 2 (two) times daily. 02/06/2017 07/27/2022 tiZANidine HCl 2 MG Cap Take 1 tablet by mouth 3 (three) times daily. 04/15/2020 documented as of this encounter ED Notes * MAIYTO Levine - 03/30/2020 8:24 PM CST Chief Complaint Chief Complaint Patient presents with ??? Headache History of Present Illness 39-year-old female here for evaluation of chills, headache, cough, nasal drainage. Symptoms started2 days ago. The patient has not checked her temperature at home. She denies chest pain or shortnessof breath. She denies vomiting, diarrhea, dysuria. 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 The patient has a history of liver transplant in 1992 and she is taking Prograf. Medical History ALLERGIES: Allergies Allergen Reactions ??? Aspirin Other (see comment) and Unknown C ??? Erythromycin Unknown Other reaction(s): Medication interaction ??? Ketorolac Tromethamine Other (see comment) KIDNEY Other reaction(s): Kidney failure as a complication of care MEDICATIONS: Prior to Admission medications Medication Sig Start Date End Date Taking? Authorizing Provider butorphanol 10 MG/ML nasal spray by Nasal route every 4 (four) hours as needed. Doc Abstract butorphanol 10 MG/ML nasal spray 1 spray by Nasal route every 6 (six) hours as needed for Pain. Indications: Acute Pain < 7 Day Supply 02/26/20 Abdelrahman Renner MD promethazine 12.5 MG tablet Take 1 tablet (12.5 mg total) by mouth every 6 (six) hours as needed for Nausea. 02/26/20 Abdelrahman Renner MD SODIUM BICARBONATE 650 MG tablet TAKE 2 TABLETS BY MOUTH 3 (THREE) TIMES A DAY. PT NEEDS A FOLLOW UP 09/30/19 Bethanie Leonard MD tacrolimus (PROGRAF) 1 MG capsule Take 1 tablet by mouth 2 (two) times daily. 02/06/17 Doc Abstract tiZANidine HCl 2 MG Cap Take 1 tablet by mouth 3 (three) times daily. Doc Abstract PAST MEDICAL HISTORY: Past Medical [...] No Review of Systems Review of Systems Review of systems GENERAL --patient has noted chills and body aches. NEUROLOGICAL -- denies headache EYES -- denies change in vision ENT -- denies earache or sore throat SKELETAL -- denies extremity complaints CARDIAC -- denies chest pain RESPIRATORY -- denies shortness of breath GASTROINTESTINAL -- denies abdominal pain, vomiting, or diarrhea GENITOURINARY -- denies burning with urination or hematuria SKIN -- denies new rash Physical Exam Filed Vitals: 03/30/20 1509 03/30/202026 BP: 120/71 121/70 Pulse: 81 82 Resp: 16 16 Temp: 97.6 ??F (36.4 ??C) 98 ??F (36.7 ??C) TempSrc: Tympanic Tympanic SpO2: 100% 100% Weight: 72.6 kg (160 lb) Height: 5' 2 (1.575 m) Physical Exam Physical exam GENERAL APPEARANCE -- the patient does not appear to be in distress. EYES -- normal sclera ENT -- nose and throat revealed no acute changes RESPIRATORY -- there is no respiratory difficulty. Lungs are clear to auscultation without wheezing, rhonchi, or rales. CARDIOVASCULAR -- heart has a regular rate and rhythm without murmur. GASTROINTESTINAL -- abdomen is soft and nontender. There is no rebound or guarding. SKELETAL -- extremities are normal to inspection with good range of motion. SKIN -- warm and dry NEUROLOGICAL -- Oriented appropriately. Motor and Sensory exam grossly normal. Diagnostic Studies / Procedures ELECTROCARDIOGRAMS: No results found for this visit on 03/30/20. LABORATORY STUDIES: Results for orders placed or performed during the hospital encounter of 03/30/20 URINALYSIS WI REFLEX TO CULTURE Specimen: URINE, CLEAN CATCH Result Value Ref Range Specimen Type VOIDED URINE COLOR (U) YELLOW TRANSPARENCY CLEAR [employer] (U) 1.012 1.002 - 1.035 U PH 5.5 5.0 - 9.0 LEUKOCYTE ESTERASE NEGATIVE NEGATIVE NITRITES NEGATIVE NEGATIVE PROTEIN (U) NEGATIVE NEGATIVE URINE GLUCOSE NORMAL NORMAL U KETONES NEGATIVE NEGATIVE UROBILINOGEN NORMAL 0 - 1 EU/DL BILIRUBIN (U) NEGATIVE NEGATIVE BLOOD 1+ (A) NEGATIVE CULTURE & SENSITIVITY INDICATED? CULTURE IS NOT INDICATED WBC/HPF 0-5 /HPF RBC/HPF 0-5 /HPF SQUAMOUS EPITHELIALS RARE CORONAVIRUS (COVID-19) ANTIGEN Specimen: NASAL Result Value Ref Range CORONAVIRUS ANTIGEN IA NEGATIVE NEGATIVE Specimen Type NASAL FIRST TEST YES EMPLOYED IN HEALTHCARE YES SYMPTOMATIC DEFINED BY CDC YES DATE OF SYMPTOM ONSET [id number] HOSPITALIZATION STATUS NO PATIENT IN ICU NO RESIDENT OF [facility] NO NOT IMAGING STUDIES XR CHEST PORTABLE Final Result by User, [id number] (03/30 2040) Examination: XR CHEST PORTABLE Exam time: 03/30/2020 8:25 PM Clinical history: Patient arrives for evaluation of headache, body aches, sneezing, and coughing onset two days ago. Patient sts possible exposure to covid Comparison: 04/02/2017 PA and lateral chest Technique: AP upright view Findings: Mild enlargement cardiac silhouette. Pulmonary vasculature are within normal limits. Lungs appear clear. No evidence of pleural effusion. Overall, no significant interval change since prior exam. IMPRESSION: No radiographic evidence of active chest disease. Interpreted By: Tor Garza MD, 03/30/2020 8:38 PM ED Course / Medical Decision Making Clinical Impression Upper respiratory infection (Primary) Disposition: Discharge MAYITO Levine 03/30/202146 Cosigned by Abdelrahman Renner MD at 04/03/2020 10:31 PM ROUTE SERVICE MANAGER E SERVICE MANAGER E SERVICE MANAGER * Chela Ramirez RN - 03/30/2020 3:10 PM CST Patient arrives for evaluation of headache, body aches, sneezing, and coughing onset two days ago. Patient sts possible exposure to covid. Patient hx of migraines. Patient denies other sxs. No acute distress. E SERVICE MANAGER documented in this encounter Plan of Treatment Not on file documented as of this encounter Procedures Procedure Name Priority Date/Time Associated Diagnosis Comments CORONAVIRUS (COVID 19) PCR Routine 03/30/2020 9:36 PM ROUTE SERVICE MANAGER CORONAVIRUS (COVID-19) ANTIGEN STAT 03/30/2020 8:50 PM ROUTE SERVICE MANAGER XR CHEST PORTABLE STAT 03/30/2020 8:3 6 PM ROUTE SERVICE MANAGER URINALYSIS WI REFLEX TO CULTURE STAT 03/30/2020 8:28 PM ROUTE SERVICE MANAGER documented in this encounter Results * CORONAVIRUS (COVID 19) PCR (03/30/2020 9:36 PM ROUTE SERVICE MANAGER) CORONAVIRUS SARS COV 2 PCR (RESP) NEGATIVE NEGATIVE 03/31/2020 12:28 PM ROUTE SERVICE MANAGER [facility] Comment: NEGATIVE RESULTS DO NOT PRECLUDE SARS-CoV-2 INFECTION AND SHOULD NOT BE USED THE SOLE BASIS FOR PATIENT MANAGEMENT DECISIONS. NEGATIVE RESULTS MUST BE COMBINED WITH CLINICAL OBSERVATIONS, PATIENT HISTORY, AND EPIDEMIOLOGICAL INFORMATION. THE SARS-CoV-2 TEST HAS BEEN AUTHORIZED BY THE FDA UNDER AN EUA FOR USE BY AUTHORIZED LABORATORIES. FIRST TEST UNKNOWN 03/31/2020 8:22 AM ROUTE SERVICE MANAGER [facility] EMPLOYED IN HEALTHCARE UNKNOWN 03/31/2020 8:22 AM ROUTE SERVICE MANAGER [facility] SYMPTOMATIC DEFINED BY CDC UNKNOWN 03/31/2020 8:22 AM ROUTE SERVICE MANAGER [facility] HOSPITALIZATION STATUS UNKNOWN 03/31/2020 8:22 AM ROUTE SERVICE MANAGER [facility] PATIENT IN ICU UNKNOWN 03/31/2020 8:22 AM ROUTE SERVICE MANAGER [facility] RESIDENT OF [facility] UNKNOWN 03/31/2020 8:22 AM ROUTE SERVICE MANAGER [facility] 03/30/2020 9:36 PM ROUTE SERVICE MANAGER us Jamison [facility] MICROBIOLOGY - GENERAL ORDERABL ES Final Result [facility] [address] [facility] [place] [address], [place] [phone] [facility] [address] [place] [address], [place] [phone] [id number] * CORONAVIRUS (COVID-19) ANTIGEN (03/30/2020 8:50 PM ROUTE SERVICE MANAGER) CORONAVIRUS ANTIGEN IA NEGATIVE NEGATIVE 03/30/2020 9:29 PM ROUTE SERVICE MANAGER [facility] Comment: NEGATIVE RESULTS SHOULD BE TREATED PRESUMPTIVE AND CONFIRMED WITH A MOLECULAR ASSAY IF NECESSARY FOR PATIENT MANAGEMENT. NEGATIVE RESULTS DO NOT RULE OUT COVID 19 AND SHOULD NOT BE USED THE SOLE BASIS FOR TREATMENT OR PATIENT MANAGEMENT DECISIONS, INCLUDING INFECTION CONTROL DECISIONS. NEGATIVE RESULTS SHOULD BE CONSIDERED IN THE CONTEXT OF A PATIENT'S RECENT EXPOSURES, HISTORY AND THE PRESENCE OF CLINICAL SIGNS AND SYMPTOMS CONSISTENT WITH COVID 19. THIS TEST HAS BEEN AUTHORIZED BY THE FDA UNDER AN EMERGENCY USE AUTHORIZATION (EUA) FOR USE BY AUTHORIZED LABORATORIES. SPECIMEN TYPE NASAL 03/30/2020 8:58 PM ROUTE SERVICE MANAGER [facility] FIRST TEST YES 03/30/2020 8:58 PM ROUTE SERVICE MANAGER [facility] EMPLOYED IN HEALTHCARE YES 03/30/2020 8:58 PM ROUTE SERVICE MANAGER [facility] SYMPTOMATIC DEFINED BY CDC YES 03/30/2020 8:58 PM ROUTE SERVICE MANAGER [facility] DATE OF SYMPTOM ONSET 2020032803/30/2020 8:58 PM ROUTE SERVICE MANAGER [facility] HOSPITALIZATION STATUS NO 03/30/2020 8:58 PM ROUTE SERVICE MANAGER [facility] PATIENT IN ICU NO 03/30/2020 9:05 PM ROUTE SERVICE MANAGER [facility] RESIDENT OF [facility] NO 03/30/2020 8:58 PM ROUTE SERVICE MANAGER [facility] NOT 03/30/2020 8:58 PM ROUTE SERVICE MANAGER [facility] Specimen from nose (specimen) NASAL STRUCTURE / Unknown 03/30/2020 8:50 PM ROUTE SERVICE MANAGER us Jamison [facility] MICROBIOLOGY - GENERAL ORDERABL ES Final Result [facility] [address] [place] [id number], [place] [phone] * XR CHEST PORTABLE (03/30/2020 8:36 PM ROUTE SERVICE MANAGER) Anatomical Region Laterality Modality Chest Radiographic Katy ging 03/30/2020 8:38 PM ROUTE SERVICE MANAGER Impressions 03/30/2020 8:39 PM ROUTE SERVICE MANAGER IMPRESSION: No radiographic evidence of active chest disease. Interpreted By: Tor Garza MD, 03/30/2020 8:38 PM Narrative 03/30/2020 8:39 PM ROUTE SERVICE MANAGER Examination: XR CHEST PORTABLE Exam time: 03/30/2020 8:25 PM Clinical history: Patient arrives for evaluation of headache, body aches, sneezing, and coughing onset two days ago. Patient sts possible exposure to covid Comparison: 04/02/2017 PA and lateral chest Technique: AP upright view Findings: Mild enlargement cardiac silhouette. Pulmonary vasculature are within normal limits. Lungs appear clear. No evidence of pleural effusion. Overall, no significant interval change since prior exam. Procedure Note Tor Garza MD - 03/30/2020 Examination: XR CHEST PORTABLE Exam time: 03/30/2020 8:25 PM Clinical history: Patient arrives for evaluation of headache, bodyaches, sneezing, and coughing onset two days ago. Patient sts possible exposureto covid Comparison: 04/02/2017 PA and lateral chest Technique: AP upright view Findings: Mild enlargement cardiac silhouette. Pulmonary vasculature are within normal limits. Lungs appear clear. No evidence of pleuraleffusion. Overall, no significant interval change since prior exam. IMPRESSION: No radiographic evidence of active chest disease. Interpreted By: Tor Garza MD, 03/30/2020 8:38 PM Jamison [facility] GENERAL IMAGING Final Result * (ABNORMAL) URINALYSIS WI REFLEX TO CULTURE (03/30/2020 8:28 PM ROUTE SERVICE MANAGER) SPECIMEN TYPE VOIDED URINE 8:53 PM [facility] COLOR (U) YELLOW 03/30/2020 9:09 PM [facility] TRANSPARENCY CLEAR 03/30/2020 9:09 PM [facility] SPECIFIC GRAVITY (U) 1.012 1.002 - 1.035 03/30/2020 9:09 PM [facility] U PH 5.5 5.0 - 9.0 03/30/2020 9:09 PM [facility] LEUKOCYTES (U) NEGATIVE NEGATIVE 03/30/2020 9:09 PM [facility] NITRITES NEGATIVE NEGATIVE 03/30/2020 9:09 PM [facility] PROTEIN (U) NEGATIVE NEGATIVE 03/30/2020 9:09 PM [facility] URINE GLUCOSE NORMAL NORMAL 03/30/2020 9:09 PM [facility] KETONES MG/DL (U) NEGATIVE NEGATIVE 03/30/2020 9:09 PM [facility] UROBILINOGEN NORMAL 0 - 1 EU/DL 03/30/2020 9:09 PM ROUTE SERVICE MANAGER [facility] BILIRUBIN (U) NEGATIVE NEGATIVE 03/30/2020 9:09 PM [facility] BLOOD (U) 1+(A) NEGATIVE 03/30/2020 9:09 PM [facility] CULTURE & SENSITIVITY INDICATED? CULTURE IS NOT INDICATED 03/30/2020 9:09 PM [facility] WBC/HPF 0-5 /HPF 03/30/2020 9:09 PM [facility] RBC/HPF 0-5 /HPF 03/30/2020 9:09 PM [facility] SQUAMOUS EPITHELIALS RARE 03/30/2020 9:09 PM [facility] URINE SPECIMEN OBTAINED BY CLEAN CATCH PROCEDURE / Unknown 03/30/2020 8:28 PM ROUTE SERVICE MANAGER Jamison [facility] URINE ORDERABLES Final Result [facility] [address] [place] [address], documented in this encounter Visit Diagnoses Diagnosis Upper respiratory infection- Primary Acute upper respiratory infections of unspecified site documented in this encounter Administered Medications Inactive Administered Medications - up to 3 most recent administrations Medication Order MAR Action Action Date Dose Rate Site diphenhydrAMINE (BENADRYL) injection 25 mg 25 mg, Intravenous, Once, 1 dose, On Mon03/30/20 at 2030, For IV administration, give no faster than 25 mg/min. Given 03/30/2020 9:12 PM ROUTE SERVICE MANAGER 25 mg diphenhydrAMINE (BENADRYL) injection 25 mg 25 mg, Intravenous, Once, 1 dose, On Mon03/30/20 at 2230, For IV administration, give no faster than 25 mg/min. Given 03/30/2020 10:29 PM ROUTE SERVICE MANAGER 25 mg HYDROmorphone (DILAUDID) injection 0.5 mg 0.5 mg, Intravenous, Once, 1 dose, On Mon03/30/20 at 2030, Administer slowly over at least 2-3 minutes. Given 03/30/2020 9:12 PM ROUTE SERVICE MANAGER 0.5 mg HYDROmorphone (DILAUDID) injection 0.5 mg 0.5 mg, Intravenous, Once, 1 dose, On Mon03/30/20 at 2230, Administer slowly over at least 2-3 minutes. Given 03/30/2020 10:30 PM ROUTE SERVICE MANAGER 0.5 mg sodium chloride 0.9% bolus infusion SOLN 1,000 mL 1,000 mL, Intravenous, Administer over 15 Minutes, Once, 1 dose, On Mon03/30/20 at 2030 New Bag 03/30/2020 9:11 PM ROUTE SERVICE MANAGER 1,000 mLs documented in this encounter Active and Recently Administered Medications Times are shown in ROUTE SERVICE MANAGER. Scheduled Medication Order 03/28/2020 03/29/2020 03/30/2020 diphenhydrAMINE (BENADRYL) injection 25 mg (COMPLETED) 25 mg, Intravenous, Once, 1 dose, On Mon03/30/20 at 2030, For IV administration, give no faster than 25 mg/min. 2111 (Given - Provid er: Chela Ghosh RN) diphenhydrAMINE (BENADRYL) injection 25 mg (COMPLETED) 25 mg, Intravenous, Once, 1 dose, On Mon03/30/20 at 2230, For IV administration, give no faster than 25 mg/min. 2228 (Given - Provid er: Chela Ghosh RN) HYDROmorphone (DILAUDID) injection 0.5 mg (COMPLETED) 0.5 mg, Intravenous, Once, 1 dose, On Mon03/30/20 at 2030, Administer slowly over at least 2-3 minutes. 2111 (Given - Provid er: Chela Ghosh RN) HYDROmorphone (DILAUDID) injection 0.5 mg (COMPLETED) 0.5 mg, Intravenous, Once, 1 dose, On Mon03/30/20 at 2230, Administer slowly over at least 2-3 minutes. 2229 (Given - Provid er: Chela Ghosh RN) sodium chloride 0.9% bolus infusion SOLN 1,000 mL (COMPLETED) 1,000 mL, Intravenous, Administer over 15 Minutes, Once, 1 dose, On Mon03/30/20 at 2030 2110 (New Bag - Prov ider: Chela Ghosh RN)5 (Infusion Stop Time - Provider: Chela Ghosh RN) documented in this encounter Additional Health Concerns Infection Onset Date Last Indicated Resolved Time COVID-19 Rule Out 03/30/2020 03/30/2020 03/30/2020 9:29 PM ROUTE SERVICE MANAGER documented as of this encounter Care Teams Tractor Driver Teamster Relationship Specialty Start Date End Date Hermes Ramirez III, MD [address] [place] [id number] PCP - General FAMILY PRACTICE 06/20/17 documented as of this encounter
--- OUTSIDE RECORDS SUMMARY | 2024-03-20 11:53 | XMS_ITS | Encounter Summary ---
Author Organization [facility] Address [address] [place] [address]. [place], [place] [id number] [place] [address] Care Team Providers Care Permanent Mold Supervisor Name Role Phone Ashley ZUNIGA MD, Hermes Perez Primary Care Provid er Reason for Visit * Reason Onset Date Comments Lab Results 04/14/2020 Encounter Details Date Type Department Care Team ([facility] Contact Info) Description 04/14/2020 Telephone [facility] [address] [place] [address] Belinda Us MD [address] [place] [address] Lab Results Social History Tobacco Use Types Packs/Day Years Used Date Smoking Tobacco: Every Day Cigarettes 0.5 15 Smokeless Tobacco: Never Alcohol Use Standard Drinks/Week Comments No 0 (1 standard drink = 0.6 oz pur e alcohol) Comments No Sex and Gender Information Value Date Recorded Sex Assigned at Not on file Legal Sex Female 9:15 PM RIFFLER TENDER Gender Identity Not on file Sexual Orientation Not on file COVID-19 Exposure Response Date Recorded In the last month, have you been in contact with someone who was confirmed or suspected to have Coronavirus / COVID-19? Yes 03/30/2020 3:08 PM RIFFLER TENDER documented as of this encounter Progress Notes * Latoya Dalton, ALBER - 04/14/2020 1:58 PM CST I received a call from Erlinda nurse with Dr. Ramirez asking if we could work the pt in for increased Creatinine of 3.4. The pt was a no show for her appointment on 03/24/2020 which I reviewed with Erlinda. I asked that they fax the lab results and Dr. Ramirez's recent notes. We offered the pt an appointment for tomorrow at 10:00 am. Erlinda will contact the pt with the appointment time. Dr. Ramirez is also referring the pt to GI for an elevated bilirubin. LER TENDER documented in this encounter Plan of Treatment Not on file documented as of this encounter Visit Diagnoses Not on filedocumented in this encounter Care Teams Permanent Mold Supervisor Relationship Specialty Start Date End Date Hermes Ramirez III, MD [address] [facility] [address] [place] [address] PCP - General FAMILY PRACTICE 06/20/17 documented as of this encounter
--- OUTSIDE RECORDS SUMMARY | 2024-03-20 11:53 | XMS_ITS | Encounter Summary ---
Author Organization [facility] Address [address] [place] [address]. [place], [place] [id number] [place] [address] Care Team Providers Care Vertical Contour Band Saw Operator Name Role Phone Ashley ZUNIGA MD, Hermes Perez Primary Care Provid er Reason for Visit * Reason Comments Headache Recurrent Or Know Dx Migraine Encounter Details Date Type Department Care Team (Late st Contact Info) Description 03/09/2020 4:07 PM CENTRAL COMMUNICATIONS SPECIALIST - 03/09/2020 6:22 PM CENTRAL COMMUNICATIONS SPECIALIST Emergency [facility] [address] [place] [address] [place] [address] Ziyad Hu MD [address] [place] [address] Headache Recurrent Or Know Dx Migraine Discharge [...] on file Legal Sex Female 9:15 PM CENTRAL COMMUNICATIONS SPECIALIST Gender Identity Not on file Sexual Orientation Not on file COVID-19 Exposure Response Date Recorded In the last month, have you been in contact with someone who was confirmed or suspected to have Coronavirus / COVID-19? No / Unsure 03/09/2020 3:44 PM CENTRAL COMMUNICATIONS SPECIALIST documented as of this encounter Last Filed Vital Signs Vital Sign Reading Time Taken Comments Blood Pressure 139/93 03/09/2020 6:17 PM CENTRAL COMMUNICATIONS SPECIALIST Pulse 72 03/09/2020 6:17 PM CENTRAL COMMUNICATIONS SPECIALIST Temperature 37.1 ??C (98.7 ??F) 03/09/2020 3:48 PM CS T Respiratory Rate 18 03/09/2020 6:17 PM CENTRAL COMMUNICATIONS SPECIALIST Oxygen Saturation 100% 03/09/2020 6:17 PM CENTRAL COMMUNICATIONS SPECIALIST Inhaled Oxygen Concentration - - Weight 72.6 kg (160 lb) 03/09/2020 3:45 PM CENTRAL COMMUNICATIONS SPECIALIST Height 157.5 cm (5' 2 ) 03/09/2020 3:45 PM CENTRAL COMMUNICATIONS SPECIALIST Body Mass Index 29.26 03/09/2020 3:45 PM CENTRAL COMMUNICATIONS SPECIALIST documented in this encounter Discharge Instructions * Attachments The following attachments cannot be sent through Care Everywhere. * Migraines in Adults ([place]) documented in this encounter Medications at Time [...] as of this encounter ED Notes * Shelli Perez RN - 03/09/2020 4:[address] hu aware multiple staff unable to start IV. Orders received for IM RAL COMMUNICATIONS SPECIALIST * Shelli Perez RN - 03/09/2020 4:[address] hu aware pt states reglan makes her crawl out of my skin . whatever I had last time worked . RAL COMMUNICATIONS SPECIALIST * Aurelia Vaughan RN - 03/09/2020 3:46 PM CST Pt. came here today for c/o a migraine rating it at an 8 on the pain scale. She states that she wasgoing to see the neurologist about them today but her embedded developer canceled so she had to cancel. RAL COMMUNICATIONS SPECIALIST * Ziyad Hu MD - 03/09/2020 3:16 PM CST eMERGENCY dEPARTMENT eNCOUnter CHIEF COMPLAINT Chief Complaint Patient presents with ??? Headache Recurrent Or Know Dx Migraine HPI HPI Elsa Browne is a 39-year-old female who presents to the ER with a complaint of exacerbation of chronic migraine similar to previous migraines in the past. Patient denies any recent illness fevers chills or vomiting but she is nauseous and photosensitive for the time. No other complaints at this time. ALLERGIES Allergies Allergen Reactions ??? Aspirin Other (see comment) and Unknown C ??? Erythromycin Unknown Other reaction(s): Medication interaction ??? Ketorolac Tromethamine Other (see comment) KIDNEY Other reaction(s): Kidney failure as a complication of care CURRENT MEDICATIONS Current Outpatient Medications Medication Sig ??? butorphanol 10 MG/ML nasal spray by Nasal route every 4 (four) hours as needed. ??? butorphanol 10 MG/ML nasal spray 1 spray by Nasal route every 6 (six) hours as needed for Pain.Indications: Acute Pain < 7 Day Supply ??? promethazine 12.5 MG tablet Take 1 tablet (12.5 mg total) by mouth every 6 (six) hours as needed for Nausea. ??? SODIUM BICARBONATE 650 MG tablet TAKE 2 TABLETS BY MOUTH 3 (THREE) TIMES A DAY. PT NEEDS A FOLLOW UP ??? tacrolimus (PROGRAF) 1 MG capsule Take 1 tablet by mouth 2 (two) times daily. ??? tiZANidine HCl 2 MG Cap Take 1 tablet by mouth 3 (three) times daily. PAST MEDICAL HISTORY Past Medical History: Diagnosis Date ??? Anemia ??? Biliary atresia congenital ??? Chronic kidney disease ??? Migraine ??? Thrombocytopenia (CMS/HCC) SURGICAL HISTORY Past Surgical History: Procedure Laterality Date ??? SECTION ??? INGUINAL HERNIA Bilateral age 5 ??? LIVER TRANSPLANTATION SOCIAL HISTORY Social History Socioeconomic History ??? Marital status: Spouse name: Not on file ??? Number of children: Not on file ??? Years of education: Not on file ??? Highest education level: Not on file Occupational History ??? Not on file Social Needs ??? Financial resource strain: Not on file ??? Food insecurity Worry: Not on file Inability: Not on file ??? Transportation needs Medical: Not on file Non-medical: Not on file Tobacco Use ??? Smoking status: Current Every Day Smoker Packs/day: 0.50 Years: 15.00 Pack years: 7.50 ??? Smokeless tobacco: Never Used Substance and Sexual Activity ??? Alcohol use: No ??? Drug use: No ??? Sexual activity: Not on file Lifestyle ??? Physical activity Days per week: Not on file Minutes per session: Not on file ??? Stress: Not on file Relationships ??? Social connections Talks on phone: Not on file Gets together: Not on file Attends yarsanism service: Not on file Active member of club or organization: Not on file Attends meetings of clubs or organizations: Not on file Relationship status: Not on file ??? Intimate partner violence Fear of current or ex partner: Not on file Emotionally abused: Not on file Physically abused: Not on file Forced sexual activity: Not on file Other Topics Concern ??? Not on file Social History Narrative ??? Not on file FAMILY HISTORY Family History Problem Relation Name Age of Onset ??? Diabetes Neg Hx REVIEW OF SYSTEMS Review of Systems All other ROS negative unless noted above in HPI. PHYSICAL EXAM Physical Exam Filed Vitals: 03/09/20 1545 03/09/20 1548 03/09/20 1817 BP: (!) 145/86 (!) 139/93 Pulse: 74 72 Resp: 18 18 Temp: 98.7 ??F (37.1 ??C) SpO2: 98% 100% Weight: 72.6 kg (160 lb) Height: 5' 2 (1.575 m) The patient is a well developed and well nourished adult female in mild painful distress, alert andoriented. HEENT: PERRL, EOMI Nose without drainage Throat without lesions, mucous membranes moist NECK: Supple without adenopathy or rigidity CHEST: Respirations are easy and unlabored EXT: No clubbing, cyanosis, edema NEURO: CN II-XII intact, no focal weakness EKG RADIOLOGY No orders to display LABS No results found for this visit on 03/09/20. ED MEDICATIONS Medications diphenhydrAMINE (BENADRYL) injection 25 mg (25 mg Intravenous Given 03/09/20 1640) promethazine (PHENERGAN) injection 25 mg (25 mg Intramuscular Given 03/09/20 172) diphenhydrAMINE (BENADRYL) injection 25 mg (25 mg Intramuscular Given 03/09/20 172) PROCEDURES Procedures CONSULTS: ED COURSE & MEDICAL DECISION MAKING MDM I had a long somewhat terse discussion with this patient who states that narcotics are the only thing that helps her migraine. I told her I am not comfortable prescribing narcotics and that is not appropriate for migraine headache. She states that she could not see her neurologist today due to some childcare issues. She is allergic to most of the typical nonnarcotic migraine medications we administered. We finally settled on Phenergan and Benadryl and the patient seems to have achieved some improvement of her symptoms. I am not sure if she was just frustrated and eventually wanted to be discharged or how much he truly helped. FINAL IMPRESSION SNOMED CT(R) 1. Migraine headache MIGRAINE Hermes Ramirez III, MD [address] [facility] 105 [facility] [address] As needed Discharge Medication List as of 03/09/2020 6:18 PM Ziyad Hu MD 03/09/202042 RAL COMMUNICATIONS SPECIALIST documented in this encounter Plan of Treatment Not on file documented as of this encounter Visit Diagnoses Diagnosis Migraine headache- Primary Migraine, unspecified, without mention of intractable migraine without mention of status migrainosus documented in this encounter Administered Medications Inactive Administered Medications - up to 3 most recent administrations Medication Order MAR Action Action Date Dose Rate Site diphenhydrAMINE (BENADRYL) injection 25 mg 25 mg, Intravenous, Once, 1 dose, On Mon03/09/20 at 1630, For IV administration, give no faster than 25 mg/min. Given 03/09/2020 4:40 PM CENTRAL COMMUNICATIONS SPECIALIST 25 mg diphenhydrAMINE (BENADRYL) injection 25 mg 25 mg, Intramuscular, Once, 1 dose, On Mon03/09/20 at 1700 Given 03/09/2020 5:22 PM CENTRAL COMMUNICATIONS SPECIALIST 25 mg Left Deltoid promethazine (PHENERGAN) injection 25 mg 25 mg, Intramuscular, Once, 1 dose, On Mon03/09/20 at 1700 Given 03/09/2020 5:22 PM CENTRAL COMMUNICATIONS SPECIALIST 25 mg Right Deltoid documented in this encounter Active and Recently Administered Medications Times are shown in CENTRAL COMMUNICATIONS SPECIALIST. Scheduled Medication Order 03/07/2020 03/08/2020 03/09/2020 diphenhydrAMINE (BENADRYL) injection 25 mg (COMPLETED) 25 mg, Intravenous, Once, 1 dose, On Mon03/09/20 at 1630, For IV administration, give no faster than 25 mg/min. 1640 (Given - Provid er: Shelli Perez RN) diphenhydrAMINE (BENADRYL) injection 25 mg (COMPLETED) 25 mg, Intramuscular, Once, 1 dose, On Mon03/09/20 at 1700 1722 (Given - Provid er: Misty Yanes RN) promethazine (PHENERGAN) injection 25 mg (COMPLETED) 25 mg, Intramuscular, Once, 1 dose, On Mon03/09/20 at 1700 1722 (Given - Provid er: Misty Yanes RN) documented in this encounter Care Teams Vertical Contour Band Saw Operator Relationship Specialty Start Date End Date Hermes Ramirez III, MD [address] [facility] [place] [place] [address] PCP - General FAMILY PRACTICE 06/20/17 documented as of this encounter
--- OUTSIDE RECORDS SUMMARY | 2024-03-20 11:53 | XMS_ITS | Encounter Summary ---
Author Organization [facility] Address [address] [place] [address]. [place], [place] [address] [place] [address] Care Team Providers Care Range Rider Name Role Phone Ashley ZUNIGA MD, Hermes Perez Primary Care Provid er Encounter Details Date Type Department Care Team (Late st Contact Info) Description 03/30/2020 Scan [facility] [address] [place] [address] Scanned, Documents Social History Tobacco Use Types Packs/Day Years Used Date Smoking Tobacco: Every Day Cigarettes 0.5 15 Smokeless Tobacco: Never Alcohol Use Standard Drinks/Week Comments No 0 (1 standard drink = 0.6 oz pur e alcohol) Comments No Sex and Gender Information Value Date Recorded Sex Assigned at Not on file Legal Sex Female 9:15 PM MAINTENANCE 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 No / Unsure 04/15/2020 9:53 AM MAINTENANCE TECHNICIAN documented as of this encounter Plan of Treatment Not on file documented as of this encounter Visit Diagnoses Not on filedocumented in this encounter Additional Health Concerns Infection Onset Date Last Indicated Resolved Time COVID-19 Rule Out 03/30/2020 03/30/2020 03/30/2020 9:29 PM MAINTENANCE TECHNICIAN COVID-19 Rule Out 03/30/2020 03/30/2020 03/31/2020 12:28 PM MAINTENANCE TECHNICIAN documented as of this encounter Care Teams Range Rider Relationship Specialty Start Date End Date Hermes Ramirez III, MD [address] [facility] [address] [place] [address] PCP - General FAMILY PRACTICE 06/20/17 documented as of this encounter
--- OUTSIDE RECORDS SUMMARY | 2024-03-20 11:53 | XMS_ITS | Encounter Summary ---
Author Organization [facility] Address [address] [place] [address]. [place], [place] [address] [place] [address] Care Team Providers Care Rack Washer Name Role Phone Ashley ZUNIGA MD, Hermes Perez Primary Care Provid er Encounter Details Date Type Department Care Team (Latest Contact Info) Description 02/19/2020 Travel Social History Tobacco Use Types Packs/Day Years Used Date Smoking Tobacco: Every Day Cigarettes 0.5 15 Smokeless Tobacco: Never Alcohol Use Standard Drinks/Week Comments No 0 (1 standard drink = 0.6 oz pur e alcohol) Comments No Sex and Gender Information Value Date Recorded Sex Assigned at Not on file Legal Sex Female 9:15 PM MARKETING REGIONAL CONSULTANT Gender Identity Not on file Sexual Orientation Not on file COVID-19 Exposure Response Date Recorded In the last month, have you been in contact with someone who was confirmed or suspected to have Coronavirus / COVID-19? No / Unsure 02/19/2020 2:58 PM MARKETING REGIONAL CONSULTANT documented as of this encounter Plan of Treatment Not on file documented as of this encounter Visit Diagnoses Not on filedocumented in this encounter Care Teams Rack Washer Relationship Specialty Start Date End Date Hermes Ramirez III, MD [address] [facility] 105 [place] [address] PCP - General FAMILY PRACTICE 06/20/17 documented as of this encounter
--- OUTSIDE RECORDS SUMMARY | 2024-03-20 11:53 | XMS_ITS | Encounter Summary ---
Author Organization [facility] Address [address] [place] [address]. [place], [place] [address] [place] [address] Care Team Providers Care Groutman Name Role Phone Ashley ZUNIGA MD, Hermes Perez Primary Care Provid er Encounter Details Date Type Department Care Team (Latest Contact Info) Description 03/30/2020 Travel Social History Tobacco Use Types Packs/Day Years Used Date Smoking Tobacco: Every Day Cigarettes 0.5 15 Smokeless Tobacco: Never Alcohol Use Standard Drinks/Week Comments No 0 (1 standard drink = 0.6 oz pur e alcohol) Comments No Sex and Gender Information Value Date Recorded Sex Assigned at Not on file Legal Sex Female 9:15 PM ANIMAL SHELTER CLERK Gender Identity Not on file Sexual Orientation Not on file COVID-19 Exposure Response Date Recorded In the last month, have you been in contact with someone who was confirmed or suspected to have Coronavirus / COVID-19? Yes 03/30/2020 3:08 PM ANIMAL SHELTER CLERK documented as of this encounter Plan of Treatment Not on file documented as of this encounter Visit Diagnoses Not on filedocumented in this encounter Additional Health Concerns Infection Onset Date Last Indicated Resolved Time COVID-19 Rule Out 03/30/2020 03/30/2020 03/30/2020 9:29 PM ANIMAL SHELTER CLERK documented as of this encounter Care Teams Groutman Relationship Specialty Start Date End Date Hermes Ramirez III, MD [address] [facility] [address] [place] [address] PCP - General FAMILY PRACTICE 06/20/17 documented as of this encounter
--- OUTSIDE RECORDS SUMMARY | 2024-03-20 11:53 | XMS_ITS | Encounter Summary ---
Author Organization [facility] Address [address] [place] [address]. [place], [place] [address] [address] Care Team Providers Care Director Of Restaurants Name Role Phone Ashley ZUNIGA MD, Hermes Perez Primary Care Provid er Encounter Details Date Type Department Care Team (Late st Contact Info) Description 04/09/2020 Scan [facility] [address] [place] [address] Scanned, Documents Social History Tobacco Use Types Packs/Day Years Used Date Smoking Tobacco: Every Day Cigarettes 0.5 15 Smokeless Tobacco: Never Alcohol Use Standard Drinks/Week Comments No 0 (1 standard drink = 0.6 oz pur e alcohol) Comments No Sex and Gender Information Value Date Recorded Sex Assigned at Not on file Legal Sex Female 9:15 PM GLASS FURNACE TENDER Gender Identity Not on file Sexual Orientation Not on file COVID-19 Exposure Response Date Recorded In the last month, have you been in contact with someone who was confirmed or suspected to have Coronavirus / COVID-19? No / Unsure 04/15/2020 9:53 AM GLASS FURNACE TENDER documented as of this encounter Plan of Treatment Not on file documented as of this encounter Visit Diagnoses Not on filedocumented in this encounter Care Teams Director Of Restaurants Relationship Specialty Start Date End Date Hermes Ramirez III, MD [address] [facility] 105 [place] [address] PCP - General FAMILY PRACTICE 06/20/17 documented as of this encounter
--- OUTSIDE RECORDS SUMMARY | 2024-03-20 11:53 | XMS_ITS | Encounter Summary ---
Author Organization [facility] Address [address] [place] [address]. [place] [address] [place] [address] Care Team Providers Care Bull Gang Worker Name Role Phone Ashley ZUNIGA MD, Hermes Perez Primary Care Provid er Reason for Visit * Reason Comments Follow Up Encounter Details Date Type Department Care Team ([facility] st Contact Info) Description 04/15/2020 10:00 AM CIVIL ENGINEERING DESIGNER Office Visit [facility] [address] [place] [address] Belinda Us MD [address] [place] [address] Follow Up Social History Tobacco Use Types Packs/Day Years Used Date Smoking Tobacco: Every Day Cigarettes 0.5 15 Smokeless Tobacco: Never Alcohol Use Standard Drinks/Week Comments No 0 (1 standard drink = 0.6 oz pur e alcohol) Comments No Sex and Gender Information Value Date Recorded Sex Assigned at Not on file Legal Sex Female 9:15 PM CIVIL ENGINEERING DESIGNER Gender Identity Not on file Sexual Orientation Not on file COVID-19 Exposure Response Date Recorded In the last month, have you been in contact with someone who was confirmed or suspected to have Coronavirus / COVID-19? No / Unsure 04/15/2020 9:53 AM CIVIL ENGINEERING DESIGNER documented as of this encounter Last Filed Vital Signs Vital Sign Reading Time Taken Comments Blood Pressure 134/84 04/15/2020 10:25 AM CIVIL ENGINEERING DESIGNER Pulse 74 04/15/2020 10:25 AM CIVIL ENGINEERING DESIGNER Temperature 36.6 ??C (97.8 ??F) 04/15/2020 10:[address] Respiratory Rate - - Oxygen Saturation - - Inhaled Oxygen Concentration - - Weight 91.2 kg (201 lb 1 oz) 04/15/2020 10:25 AM CIVIL ENGINEERING DESIGNER Height 157.5 cm (5' 2 ) 04/15/2020 10:25 AM CIVIL ENGINEERING DESIGNER Body Mass Index 36.77 04/15/2020 10:25 AM CIVIL ENGINEERING DESIGNER documented in this encounter Progress Notes * Belinda Us MD - 04/15/2020 10:00 AM CST Chief complaint: Follow Up Problem list: 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 She was quite unhappy and uncomfortable. 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 She tells me that on 03/30/2020( 2 weeks ago) she has some respiratory tract symptoms with chills and went to to Ed thinking it was COVID. She was COVID negative and Urinalysis showed 1+ blood and no protein. She was given IVF and discharged home. Her last Liver function test was done last month with Dbili 1.5 and Total Bili 2.2, AST 70, ALT 57 and Alb 2.7. She went to see her PCP 04/14 and she was noted to be more jaundiced. Her labs showed Bili now 7.9. She was asked to take lasix 20mg daily and made an urgent appt here today Renal ROS: GEN: reports weight gain GI: poor appetite, no vomiting, no diarrhea : making urine, no hematuria, no dysuria CVS: no orthopnea, no chest pain EXT: edema. Past medical history: Past Medical History: Diagnosis Date ??? Anemia ??? Biliary atresia congenital ??? Chronic kidney disease ??? Migraine ??? Thrombocytopenia (CMS/HCC) Allergies: Allergies Allergen Reactions ??? Aspirin Other (see comment) C ??? Erythromycin Unknown ??? Toradol [Ketorolac Tromethamine] Other (see comment) KIDNEY Family history: Family History Problem Relation Name Age of Onset ??? Diabetes Neg Hx Current Medications: Current Outpatient Medications Medication Sig Dispense Refill ??? butorphanol 10 MG/ML nasal spray ??? metoprolol succinate ER 25 MG 24 hr tablet Take 25 mg by mouth daily. ??? SODIUM BICARBONATE 650 MG tablet TAKE 2 TABLETS BY MOUTH 3 (THREE) TIMES A DAY. PT NEEDS A FOLLOW UP 540 tablet 1 ??? tacrolimus (PROGRAF) 1 MG capsule Take 1 tablet by mouth 2 (two) times daily. ??? tiZANidine HCl 2 MG Cap Take 1 tablet by mouth 3 (three) times daily. No current facility-administered medications for this visit. Physical Exam: Constitutional: anxious Cardiovascular: Normal rate and regular rhythm. Pulmonary/Chest: Effort normal and breath sounds normal. No respiratory distress. Abdomen: non tender : no renal anle tenderness EXT: Leg edema Nursing note and vitals reviewed. Diagnostic Studies Reviewed Today: Labs 04/13/2020 Hb 11.3 PLT 71,000 Na 144 K 4.0 Bicarb 30 crea 3.42 eGFR 16 Calcium 8.3 Alb 2.2 Total Bili 7.9 BNP 871 AST 73 ALT 40 ASSESSMENT 1. Fluid overload in the setting of CKD stage 4 Following IVF 2 weeks ago Wt today 91.2kg, she was 72.6kg in ER on 03/30/2020 2 weeks ago 2. CHRISTY on CKD stage 4 Creatinine is up from 2.4 to 3.4 Together with fluid overload No recent FK level. 3. Hypertension: BP acceptable today 4. Orthotopic Liver transplant in 1992: Bilirubin is trending up. However I do note that her AST, ALT have trended up from November 2019 I called [facility]- was unable to locate her Transplant nurse/coordinator Melba . I left a message to be called back. PLAN I asked to increase lasix to 40-60mg BID for 3 days I have called [facility] and will call back to speak to the transplant team. Meanwhile if inadequate diuresis in a couple of days when I follow up , will likely have her admitted to [facility] for CHRISTY , Fluid overload and worsening Liver function Tacrolimus trough level and BMP in 3 days CHRISTINE US MD 04/15/2020 CC: PCP: HERMES RAMIREZ III, MD L ENGINEERING DESIGNER documented in this encounter Plan of Treatment Not on file documented as of this encounter Visit Diagnoses Diagnosis Liver transplanted (CMS/HCC HHS/HCC)- Primary Liver replaced by transplant CHRISTY (acute kidney injury) (CMS/HCC) Acute kidney failure, unspecified Abnormal liver function Unspecified disorder of liver Other hypervolemia documented in this encounter Care Teams Bull Gang Worker Relationship Specialty Start Date End Date Hermes Ramirez III, MD [address] [address] PCP - General FAMILY PRACTICE 06/20/17 documented as of this encounter
--- OUTSIDE RECORDS SUMMARY | 2024-03-20 11:53 | XMS_ITS | Encounter Summary ---
Author Organization [facility] Address [address] [place] [address]. [employer], [place] [address] [place] [id number] Care Team Providers Care Cooking Instructor Name Role Phone Ashley ZUNIGA MD, Hermes Perez Primary Care Provid er Reason for Visit * Reason Comments Headache POSSIBLE UTI Encounter Details Date Type Department Care Team (Late st Contact Info) Description 02/26/2020 7:15 PM DANCE ENTERTAINER - 02/26/2020 10:44 PM DANCE ENTERTAINER Emergency [facility] [address] [place] [address] Abdelrahman Renner MD [address] [place] [address] Headache (POSSIBLE UTI) Discharge Disposition: Home or Self Care (Routine Discharge) Social History Tobacco Use Types Packs/Day Years Used Date Smoking Tobacco: Every Day Cigarettes 0.5 15 Smokeless Tobacco: Never Alcohol Use Standard Drinks/Week Comments No 0 (1 standard drink = 0.6 oz pur e alcohol) Comments No Sex and Gender Information Value Date Recorded Sex Assigned at Not on file Legal Sex Female 9:15 PM DANCE ENTERTAINER Gender Identity Not on file Sexual Orientation Not on file COVID-19 Exposure Response Date Recorded In the last month, have you been in contact with someone who was confirmed or suspected to have Coronavirus / COVID-19? No / Unsure 02/26/2020 6:35 PM DANCE ENTERTAINER documented as of this encounter Last Filed Vital Signs Vital Sign Reading Time Taken Comments Blood Pressure 137/88 02/26/2020 10:43 PM DANCE ENTERTAINER Pulse 78 02/26/2020 10:43 PM DANCE ENTERTAINER Temperature 36.9 ??C (98.4 ??F) 02/26/2020 10:[address] Respiratory Rate 16 02/26/2020 10:43 PM DANCE ENTERTAINER Oxygen Saturation 100% 02/26/2020 10:43 PM DANCE ENTERTAINER Inhaled Oxygen Concentration - - Weight 72.6 kg (160 lb) 02/26/2020 6:36 PM DANCE ENTERTAINER Height 157.5 cm (5' 2 ) 02/26/2020 6:36 PM DANCE ENTERTAINER Body Mass Index 29.26 02/26/2020 6:36 PM DANCE ENTERTAINER documented in this encounter Discharge Instructions * Discharge Instructions* Abdelrahman Renner MD - 02/26/2020 10:31 PM DANCE ENTERTAINER CALL YOUR DOCTOR AND SCHEDULE A FOLLOW UP APPOINTMENT. RETURN TO THE EMERGENCY DEPARTMENT WITH ANY NEW OR WORSENING SYMPTOMS. E ENTERTAINER * Attachments The following attachments cannot be sent through Care Everywhere. * Urinary Tract Infection Discharge Instructions, Adult (Thai) documented in this encounter Medications at Time of Discharge metoprolol succinate ER (TOPROL-XL) 100 MG 24 hr tablet Take 1 tablet (100 mg total) by mouth 2 (two) times a day. 12/30/2019 acetaminophen 500 MG tablet Take 1 tablet (500 mg total) by mouth every 6 (six) hours as needed for Pain. 30 tablet 02/18/2020 02/28/2020 butorphanol 10 MG/ML nasal spray by Nasal [...] FOLLOW UP 540 tablet 1 09/30/2019 07/22/2023 sulfamethoxazole- trimethoprim (BACTRIM DS) 800-160 MG tablet Take 0.5 tablets by mouth 2 (two) times daily for 7 days. 7 tablet 02/26/2020 03/04/2020 tacrolimus (PROGRAF) 1 MG capsule Take 1 tablet by mouth 2 (two) times daily. 02/06/2017 07/27/2022 tiZANidine HCl 2 MG Cap Take 1 tablet by mouth 3 (three) times daily. 04/15/2020 documented as of this encounter ED Notes * Abdelrahman Renner MD - 02/26/2020 7:30 PM CST EMERGENCY DEPARTMENT ENCOUNTER Take no action on this note until reviewed and authenticated by the physician. Chief Complaint Patient presents with ??? Headache POSSIBLE UTI History of Present Illness Elsa Browne is a 39-year-old female who presents to the ED for evaluation of headache. Patient complains of headache and urinary symptoms. Patient complains of not feeling like she completely emptied her bladder and has to go to the bathroom more frequent onset a couple of days ago. Patient denies any cough, fever, shortness of breath, and lost of taste and smell. She states that she has been taking Tylenol. Patient says that she has been on immunosuppressants because of a liver transplant. She states that because of this she gets headaches a lot and her kidneys' function is decreasing,so she has been getting a lot of UTI. Past Medical History Past Medical History: Diagnosis Date ??? Anemia ??? Biliary atresia congenital ??? Chronic kidney disease ??? Migraine ??? Thrombocytopenia (CMS/HCC) Surgical History Past Surgical History: Procedure Laterality Date ??? SECTION ??? INGUINAL HERNIA Bilateral age 5 ??? LIVER TRANSPLANTATION Family History Family History Problem Relation Name Age of Onset ??? Diabetes Neg Hx Social History Social History Tobacco Use ??? Smoking status: Current Every Day Smoker Packs/day: 0.50 Years: 15.00 Pack years: 7.50 ??? Smokeless tobacco: Never Used Substance Use Topics ??? Alcohol use: No ??? Drug use: No Medications Current medication(s) at the start of this visit: Medication Sig ??? acetaminophen 500 MG tablet Take 1 tablet (500 mg total) by mouth every 6 (six) hours as neededfor Pain. ??? butorphanol 10 MG/ML nasal spray by Nasal route every 4 (four) hours as needed. ??? SODIUM BICARBONATE 650 MG tablet TAKE 2 TABLETS BY MOUTH 3 (THREE) TIMES A DAY. PT NEEDS A FOLLOW UP ??? tacrolimus (PROGRAF) 1 MG capsule Take 1 tablet by mouth 2 (two) times daily. ??? tiZANidine HCl 2 MG Cap Take 1 tablet by mouth 3 (three) times daily. Review of Systems Review of Systems Constitutional: Negative for diaphoresis and fever. HENT: Negative for sore throat. Eyes: Negative for pain. Respiratory: Negative for cough and shortness of breath. Cardiovascular: Negative for chest pain. Gastrointestinal: Negative for abdominal pain. Endocrine: Negative for polyuria. Genitourinary: Positive for frequency and urgency. Negative for dysuria. Musculoskeletal: Negative for back pain. Skin: Negative for wound. Allergic/Immunologic: Negative for immunocompromised state. Neurological: Positive for headaches. Psychiatric/Behavioral: Negative for agitation. Physical Exam Filed Vitals: 02/26/20 1836 02/26/20 2243 BP: (!) 153/91 137/88 Pulse: 83 78 Resp: 18 16 Temp: 98.5 ??F (36.9 ??C) 98.4 ??F (36.9 ??C) TempSrc: Tympanic Tympanic SpO2: 99% 100% Weight: 72.6 kg (160 lb) Height: 5' 2 (1.575 m) Physical Exam Constitutional: She appears well-developed. She appears distressed (Mild). HENT: Head: Normocephalic. Eyes: Conjunctivae are normal. Neck: Neck supple. No tracheal deviation present. Cardiovascular: Normal rate. Pulmonary/Chest: No respiratory distress. Abdominal: Soft. There is abdominal tenderness in the suprapubic area. Musculoskeletal: General: No tenderness. Neurological: She is alert. Skin: Skin is warm and dry. Psychiatric: She has a normal mood and affect. Tearful. Nursing note and vitals reviewed. Lab Results Labs Reviewed URINALYSIS WI REFLEX TO CULTURE - Abnormal; Notable for the following components: Result Value LEUKOCYTE ESTERASE 500 (*) PROTEIN (U) TRACE (*) UROBILINOGEN 2.0 (*) BLOOD 1+ (*) All other components within normal limits BASIC METABOLIC PANEL - Abnormal; Notable for the following components: CHLORIDE S/P/B 112 (*) BUN 25 (*) CREATININE S/P/B 2.61 (*) ANION GAP 3.7 (*) eGFR Non-Afr. Amer. 23 (*) eGFR Afr. Amer. 26 (*) All other components within normal limits HEPATIC FUNCTION PANEL - Abnormal; Notable for the following components: BILIRUBIN TOTAL S/P/B 2.2 (*) BILIRBUIN DIRECT S/P/B 1.5 (*) ALKALINE PHOSPHATASE S/P/B 449 (*) AST 70 (*) ALT 57 (*) TOTAL PROTEIN S/P/B 6.0 (*) ALBUMIN S/P/B 2.7 (*) All other components within normal limits CBC W/DIFF AUTOMATED - Abnormal; Notable for the following components: RBC 3.30 (*) HGB 11.7 (*) HCT 34.4 (*) MCV 104.2 (*) MCH 35.5 (*) PLT 45 (*) All other components within normal limits TEST URINE MAGNESIUM CULTURE URINE See medical record for details. Imaging No orders to display Other Studies No results found for this visit on 02/26/20. Procedures Procedures ED Course / MDM ED Course as of Feb 25 2245 Wed Feb 26, [id number] UA consistent with UTI. Discussed kidney function and LFTs with patient. She will follow-up with her primary care physician. Will treat with IV ceftriaxone followed by oral antibiotics. Pain meds with improvement. [CP] ED Course User Index [CP] Abdelrahman Renner MD Clinical Impression Acute UTI (Primary) Headache Disposition: Discharge Medications Received In ED Medications sodium chloride 0.9% bolus infusion SOLN 1,000 mL (0 mLs Intravenous Infusion Stop Time 02/26/202139) promethazine (PHENERGAN) injection 25 mg (25 mg Intramuscular Given 02/26/202033) diphenhydrAMINE (BENADRYL) injection 25 mg (25 mg Intravenous Given 02/26/202033) dexamethasone PF (DECADRON) injection 10 mg (10 mg Intravenous Given 02/26/202033) HYDROmorphone (DILAUDID) injection 1 mg (1 mg Intravenous Given 02/26/202033) cefTRIAXone (ROCEPHIN) 1 g in sodium chloride 0.9 % 50 mL IVPB (0 g Intravenous Infusion Stop Time 02/26/202227) Rx Given Discharge Medication List as of 02/26/2020 10:34 PM START taking these medications Details promethazine 12.5 MG tablet Take 1 tablet (12.5 mg total) by mouth every 6 (six) hours as needed for Nausea., Starting Mon02/26/2020, Print Class: Print Pharmacy: [facility]/pharmacy #[id number] - [address] (Ph #: [phone]) sulfamethoxazole-trimethoprim (BACTRIM DS) 800-160 MG tablet Take 0.5 tablets by mouth 2 (two) times daily for 7 days., Starting Mon02/26/2020, Until Mon03/04/2020, Print Class: Print Pharmacy: [facility]/pharmacy #[id number] (Ph #: [phone]) Follow Up Information Hermes Ramirez III, MD [address] [facility] [address] [place] [address] Schedule an appointment as soon as possible for a visit Call in the morning SCRIBE ATTESTATION I Ganesh Rubin am personally taking down the notes in the presence of Dr. Abdelrahman Renner MD. Ani Peres, 02/26/20, 19:52. ED PROVIDER ATTESTATION: I, Dr. Abdelrahman Renner, personally performed the services described in this documentation. All medical record entries made by the scribe were at my direction and in my presence. I have reviewed the chart and agree that the record reflects my personal performance and is accurate and complete. Abdelrahman Renner MD. 02/26/2020 7:30 PM Abdelrahman Renner MD 03/23/20 0447 E ENTERTAINER * Gabriel Otero RN - 02/26/2020 7:27 PM CST PT REPORTS HAVING A HEADACHE AND POSSIBLE UTI. HEADACHE SHE BELIEVES IS STRESS INDUCED DUE TO ONGOING HOME ISSUES. SHE HAD A LIVER TRANSPLANT 27 YEARS AGO SO TYLENOL IS ALL SHE CAN REPORTEDLY TAKE FOR HEADACHES AND SHE HAS MAXED OUT THE 24 HOUR DOSE HERSELF. UTI REPORTED SYMPTOMS ARE DARK URINE ANDTHE FEELING SHE IS NOT GETTING ALL HER URINE OUT. E ENTERTAINER * Shae Park RN - 02/26/2020 6:38 PM CST PRESENTS WITH C/O MIGRAINE, ONSET THIS AM. C/O POSSIBLE UTI, SX ONSET 2 DAYS. SEEN HERE 02/18 FOR HEADACHE ALSO E ENTERTAINER documented in this encounter Plan of Treatment Not on file documented as of this encounter Procedures Procedure Name Priority Date/Time Associated Diagnosis Comments BASIC METABOLIC PANEL STAT 02/26/2020 8:16 PM DANCE ENTERTAINER HEPATIC FUNCTION PANEL STAT 02/26/2020 8:16 PM DANCE ENTERTAINER CBC W/DIFF AUTOMATED STAT 02/26/2020 8:16 PM DANCE ENTERTAINER MAGNESIUM STAT 02/26/2020 8:16 PM DANCE ENTERTAINER URINALYSIS WI REFLEX TO CULTURE STAT 02/26/2020 6:40 PM DANCE ENTERTAINER TEST URINE STAT 02/26/2020 6:40 PM DANCE ENTERTAINER URINE BACTERIA CULTURE Routine 02/26/2020 6:40 PM DANCE ENTERTAINER documented in this encounter Results * MAGNESIUM (02/26/2020 8:16 PM DANCE ENTERTAINER) MAGNESIUM 1.7 1.6 - 2.6 MG/DL 02/26/2020 8:53 PM DANCE ENTERTAINER [facility] 02/26/2020 8:16 PM DANCE ENTERTAINER Abdelrahman Renner MD LABORATORY Final Result [facility] [address] [facility] [place] [id number], * (ABNORMAL) CBC W/DIFF AUTOMATED (02/26/2020 8:16 PM DANCE ENTERTAINER) WBC 5.8 3.6 - 10.6 x10'3/uL 02/26/2020 9:03 PM [facility] RBC 3.30(L) 3.71 - 5.17 x10'6/uL 02/26/2020 9:03 PM [facility] HGB 11.7(L) 12.0 - 15.0 G/DL 02/26/2020 9:03 PM [facility] HCT 34.4(L) 35.0 - 49.0 % 02/26/2020 9:03 PM [facility] MCV 104.2(H) 81.0 - 99.0 FL 02/26/2020 9:03 PM [facility] MCH 35.5(H) 27.0 - 34.0 PG 02/26/2020 9:03 PM [facility] MCHC 34.0 32.0 - 36.0 G/DL 02/26/2020 9:03 PM [facility] RDW 13.9 11.5 - 14.5 % 02/26/2020 9:03 PM [facility] PLT 45(LL) 150.0 - 450.0 x10'3/uL 02/26/2020 9:03 PM [facility] Comment: CALLED TO AND READ BACK BY NAFISA OTERO [id number] AT 2103 WS MPV 11.2 7.0 - 12.0 FL 02/26/2020 9:03 PM [facility] DIFFERENTIAL TYPE AUTOMATED 02/26/2020 9:03 PM [facility] SEG NEUTROPHILS 68.2 % 0 9:03 PM [facility] LYMPHOCYTES 15.9 % 02/26/2020 9:03 PM [facility] MONOCYTES 8.9 % 02/26/2020 9:03 PM [facility] EOSINOPHILS 6.3 % 02/26/2020 9:03 PM [facility] BASOPHILS 0.2 % 02/26/2020 9:03 PM [facility] IMMATURE GRANS % 0.5 % 02/26/20 20 9:03 PM [facility] NRBC 0.0 % 02/26/2020 9:03 PM [facility] ABS. NEUTROPHILS 3.98 1.7 - 7.0 x10'3/uL 02/26/2020 9:03 PM [facility] ABS. LYMPHOCYTES 0.93 0.90 - 2.90 x10'3/uL 02/26/2020 9:03 PM [facility] ABS. MONOCYTES 0.52 0.30 - 0.90 x10'3/uL 02/26/2020 9:03 PM [facility] ABS. EOSINOPHILS 0.37 0.05 - 0.50 x10'3/uL 02/26/2020 9:03 PM [facility] ABS. BASOPHILS 0.01 0.00 - 0.30 x10'3/uL 02/26/2020 9:03 PM [facility] ABS. IMMATURE GRANULOCYTES 0.03 0.00 - 0.03 x10'3/uL 02/26/2020 9:03 PM [facility] ABS. NUCLEATED RBC'S 0.00 0.00 x10'3/uL 02/26/2020 9:03 PM [facility] 02/26/2020 8:16 PM DANCE ENTERTAINER us Abdelrahman Renner MD LABORATORY Final Result [facility] [address] [place] [address], [place] [phone] * (ABNORMAL) HEPATIC FUNCTION PANEL (02/26/2020 8:16 PM DANCE ENTERTAINER) BILIRUBIN TOTAL S/P/B 2.2(H) 0.2 - 1.0 MG/DL 02/26/2020 8:53 PM [facility] Comment: THIS ASSAY IS NOT RECOMMENDED FOR PATIENTS UNDERGOING TREATMENT WITH ELTROMBOPAG DUE TO THE POTENTIAL FOR FALSELY ELEVATED RESULTS. BILIRUBIN DIRECT S/P/B 1.5(H) 0.0 - 0.2 MG/DL 02/26/2020 8:53 PM [facility] ALKALINE PHOSPHATASE S/P/B 449(H) 37 - 98 U/L 02/26/2020 8:53 PM [facility] AST 70(H) 15 - 37 U/L 02/26/2020 8:53 PM [facility] ALT 57(H) 13 - 56 U/L 02/26/2020 8:53 PM [facility] TOTAL PROTEIN S/P/B 6.0(L) 6.4 - 8.2 G/DL 02/26/2020 8:53 PM [facility] ALBUMIN S/P/B 2.7(L) 3.4 - 5.0 G/DL 02/26/2020 8:53 PM [facility] 02/26/2020 8:16 PM DANCE ENTERTAINER us Abdelrahman Renner MD LABORATORY Final Result [facility] [address] [place] [address], * (ABNORMAL) BASIC METABOLIC PANEL (02/26/2020 8:16 PM DANCE ENTERTAINER) SODIUM S/P/B 144 136 - 145 MMOL/L 02/26/2020 8:53 PM [facility] POTASSIUM S/P/B 4.0 3.6 - 5.0 MMOL/L 02/26/2020 8:53 PM [facility] CHLORIDE S/P/B 112(H) 98 - 107 MMOL/L 02/26/2020 8:53 PM [facility] CO2 28.3 21.0 - 32.0 MMOL/L 02/26/2020 8:53 PM [facility] GLUCOSE 86 74 - 106 MG/DL 02/26/2020 8:53 PM [facility] BUN 25(H) 7 - 18 MG/DL 02/26/2020 8:53 PM [facility] CREATININE S/P/B 2.61(H) 0.55 - 1.02 MG/DL 02/26/2020 8:53 PM [facility] CALCIUM S/P/B 8.5 8.5 - 10.1 MG/DL 02/26/2020 8:53 PM [facility] ANION GAP 3.7(L) 5 - 15 MMOL/L 02/26/2020 8:53 PM [facility] OSMOLALITY (CALC) 302 MOSM/KG 020 8:53 PM [facility] EGFR NON-AFR. AMER. 23(L) >90 ML/MIN/1. 73 M2 02/26/2020 8:53 PM [facility] EGFR AFR. AMER. 26(L) >90 ML/MIN/1. 73 M2 02/26/2020 8:53 PM [facility] GFR NOTES GFR REFERENCE S: 02/26/2020 8:53 PM [facility] Comment: THE ESTIMATED GFR IS CALCULATED USING THE 2009 CKD-EPI EQUATION. THE FOLLOWING CATEGORIES FOR GRADING RENAL FUNCTION ARE RECOMMENDED BY THE INTERNATIONAL SOCIETY OF NEPHROLOGY (KDIGO 2012 CLINICAL PRACTICE GUIDELINE). G1,NORMAL OR HIGH: >89 ml/min/1.73 m2 G2,MILDLY DECREASED: 60-89 ml/min/1.73 m2 G3A,MILDLY TO MODERATELY DECREASED: 45-59 ml/min/1.73 m2 G3B,MODERATELY TO SEVERELY DECREASED: 30-44 ml/min/1.73 m2 G4,SEVERELY DECREASED: 15-29 ml/min/1.73 m2 G5,KIDNEY FAILURE: <15 ml/min/1.73 m2 02/26/2020 8:16 PM DANCE ENTERTAINER Abdelrahman Renner MD LABORATORY Final Result [facility] [employer] [place] [address], * (ABNORMAL) CULTURE URINE (02/26/2020 6:40 PM DANCE ENTERTAINER) SPEC DESCRIPTION URINE CLEAN CATCH 02/26/2020 8:02 PM DANCE ENTERTAINER [facility] SPECIAL REQUESTS NO SPECIAL REQUEST 02/26/2020 8:02 PM DANCE ENTERTAINER [facility] CULTURE RESULT >25,000 TO 50,000 CFU/mL ESCHERICHIA COLI (A) 02/28/2020 2:58 PM DANCE ENTERTAINER [facility] URINE SPECIMEN OBTAINED BY CLEAN CATCH PROCEDURE / Unknown 02/26/2020 6:40 PM DANCE ENTERTAINER 02/26/2020 8:02 PM DANCE ENTERTAINER Narrative Organism Antibiotic Method Susceptibility Escherichia coli AMPICILLIN NAV (MICX) Sensitive Escherichia coli AMOXICILLIN/CLAVULANIC A NAV (MICX) Sensitive Escherichia coli AZTREONAM NAV (MICX) Sensitive Escherichia coli CEFEPIME NAV (MICX) Sensitive Escherichia coli CEFTRIAXONE NAV (MICX) Sensitive Escherichia coli CEFAZOLIN NAV (MICX) Sensitive Escherichia coli CIPROFLOXACIN NAV (MICX) Sensitive Escherichia coli ESBL NAV (MICX) NEG: Sensitive Escherichia coli ERTAPENEM NAV (MICX) Sensitive Escherichia coli NITROFURANTOIN NAV (MICX) Sensitive Escherichia coli GENTAMICIN NAV (MICX) Sensitive Escherichia coli IMIPENEM NAV (MICX) Sensitive Escherichia coli LEVOFLOXACIN NAV (MICX) Sensitive Escherichia coli MEROPENEM NAV (MICX) Sensitive Escherichia coli PIPRACIL/TAZO NAV (MICX) Sensitive Escherichia coli TRIMETH-SULFAMETH. NAV (MICX) Sensitive Escherichia coli TETRACYCLINE NAV (MICX) Sensitive us Abdelrahman Renner MD MICROBIOLOGY - GENERAL ORDER KAREN Final Result Performing Organization Address [facility]/ZIP Co de Phone Number [facility] [address] [place] [address], [place] [phone] [facility] [address] [place] [address], [place] [phone] * TEST URINE (02/26/2020 6:40 PM DANCE ENTERTAINER) PREG TEST NEGATIVE NEGATIVE 02/26/2020 8:04 PM [facility] SPECIFIC GRAVITY (U) 1.012 02/26/2020 8:04 PM [facility] URINE SPECIMEN OBTAINED BY CLEAN CATCH PROCEDURE / Unknown 02/26/2020 6:40 PM DANCE ENTERTAINER us Abdelrahman Renner MD URINE ORDERABLES Final Resul t Performing Organization Address [facility]/ZIP Co de Phone Number [facility] [address] [place] [address], [place] [phone] * (ABNORMAL) URINALYSIS WI REFLEX TO CULTURE (02/26/2020 6:40 PM DANCE ENTERTAINER) SPECIMEN TYPE URINE CLEAN CATCH 02/26/2020 7:52 PM [facility] COLOR (U) YELLOW 02/26/2020 8:10 PM [facility] TRANSPARENCY CLEAR 02/26/2020 8:10 PM [facility] SPECIFIC GRAVITY (U) 1.012 1.002 - 1.035 02/26/2020 8:10 PM [facility] U PH 6.5 5.0 - 9.0 02/26/2020 8:10 PM [facility] LEUKOCYTES (U) 500(A) NEGATIVE 02/26/2020 8:10 PM [facility] NITRITES NEGATIVE NEGATIVE 02/26/2020 8:10 PM [facility] PROTEIN (U) TRACE(A) NEGATIVE 02/26/2020 8:10 PM [facility] URINE GLUCOSE NORMAL NORMAL 02/26/2020 8:10 PM [facility] KETONES MG/DL (U) NEGATIVE NEGATIVE 02/26/2020 8:10 PM [facility] UROBILINOGEN 2.0(H) 0 - 1 EU/DL 02/26/2020 8:10 PM [facility] BILIRUBIN (U) NEGATIVE NEGATIVE 02/26/2020 8:10 PM [facility] BLOOD (U) 1+(A) NEGATIVE 02/26/2020 8:10 PM [facility] CULTURE & SENSITIVITY INDICATED? CULTURE IS INDICATED 02/26/2020 8:10 PM [facility] HYALINE CASTS RARE 02/26/2020 8:10 PM [facility] WBC/HPF >50 /HPF 02/26/2020 8:10 PM [facility] RBC/HPF 0-5 /HPF 02/26/2020 8:10 PM [facility] BACTERIA (U) RARE /HPF 02/26/2020 8:10 PM [facility] BUDDING YEAST RARE 02/26/2020 8:10 PM [facility] SQUAMOUS EPITHELIALS RARE 02/26/2020 8:10 PM [facility] URINE SPECIMEN OBTAINED BY CLEAN CATCH PROCEDURE / Unknown 02/26/2020 6:40 PM DANCE ENTERTAINER us Abdelrahman Renner MD URINE ORDERABLES Final Resul t [facility] [place] [address], documented in this encounter Visit Diagnoses Diagnosis Acute UTI- Primary Urinary tract infection, site not specified Headache documented in this encounter Administered Medications Inactive Administered Medications - up to 3 most recent administrations Medication Order MAR Action Action Date Dose Rate Site cefTRIAXone (ROCEPHIN) 1 g in sodium chloride 0.9 % 50 mL IVPB 1 g, Intravenous, at 100 mL/hr, Once, 1 dose, On Mon02/26/20 at 2115 New Bag 02/26/2020 9:26 PM DANCE ENTERTAINER 1 g 100 mL/hr dexamethasone PF (DECADRON) injection 10 mg 10 mg, Intravenous, Once, 1 dose, On Mon02/26/20 at 2014, Administer slowly over 1-4 minutes. Given 02/26/2020 8:34 PM DANCE ENTERTAINER 10 mg diphenhydrAMINE (BENADRYL) injection 25 mg 25 mg, Intravenous, Once, 1 dose, On Mon02/26/20 at 2014, For IV administration, give no faster than 25 mg/min. Given 02/26/2020 8:34 PM DANCE ENTERTAINER 25 mg HYDROmorphone (DILAUDID) injection 1 mg 1 mg, Intravenous, Once, 1 dose, On Mon02/26/20 at 2014, Administer slowly over at least 2-3 minutes. Given 02/26/2020 8:34 PM DANCE ENTERTAINER 1 mg promethazine (PHENERGAN) injection 25 mg 25 mg, Intramuscular, Once, 1 dose, On Mon02/26/20 at 2014, For IV administration must be used with CAUTION. Dilute dose to 10 ml with NS and inject over 10 minutes through a running IV line. Given 02/26/2020 8:34 PM DANCE ENTERTAINER 25 mg Right Deltoid sodium chloride 0.9% bolus infusion SOLN 1,000 mL 1,000 mL, Intravenous, Administer over 15 Minutes, Bolus (Once), 1 dose, On Mon02/26/20 at 2014 New Bag 02/26/2020 8:34 PM DANCE ENTERTAINER 1,000 mLs documented in this encounter Active and Recently Administered Medications Times are shown in DANCE ENTERTAINER. Scheduled Medication Order 02/24/2020 02/25/2020 02/26/2020 cefTRIAXone (ROCEPHIN) 1 g in sodium chloride 0.9 % 50 mL IVPB (COMPLETED) 1 g, Intravenous, at 100 mL/hr, Once, 1 dose, On Mon02/26/20 at 2115 2125 (New Bag - Prov ider: Gabriel Otero RN)2227 (Infusion Stop Time - Provider: Gabriel Otero RN) dexamethasone PF (DECADRON) injection 10 mg (COMPLETED) 10 mg, Intravenous, Once, 1 dose, On Mon02/26/20 at 2014, Administer slowly over 1-4 minutes. 2033 (Given - Provid er: Gabriel Otero RN) diphenhydrAMINE (BENADRYL) injection 25 mg (COMPLETED) 25 mg, Intravenous, Once, 1 dose, On Mon02/26/20 at 2014, For IV administration, give no faster than 25 mg/min. 2033 (Given - Provid er: Gabriel Otero RN) HYDROmorphone (DILAUDID) injection 1 mg (COMPLETED) 1 mg, Intravenous, Once, 1 dose, On Mon02/26/20 at 2014, Administer slowly over at least 2-3 minutes. 2033 (Given - Provid er: Gabriel Otero RN) promethazine (PHENERGAN) injection 25 mg (COMPLETED) 25 mg, Intramuscular, Once, 1 dose, On Mon02/26/20 at 2014, For IV administration must be used with CAUTION. Dilute dose to 10 ml with NS and inject over 10 minutes through a running IV line. 2033 (Given - Provid er: Gabriel Otero RN) sodium chloride 0.9% bolus infusion SOLN 1,000 mL (COMPLETED) 1,000 mL, Intravenous, Administer over 15 Minutes, Bolus (Once), 1 dose, On Mon02/26/20 at 2014 2033 (New Bag - Prov ider: Gabriel Otero RN)2139 (Infusion Stop Time - Provider: Gabriel Otero RN) documented in this encounter Care Teams Cooking Instructor Relationship Specialty Start Date End Date Hermes Ramirez III, MD [address] [facility] [address] [place] [address] PCP - General FAMILY PRACTICE 06/20/17 documented as of this encounter
--- OUTSIDE RECORDS SUMMARY | 2024-03-20 11:53 | XMS_ITS | Encounter Summary ---
Author Organization [facility] Address [address] [place] [address]. [place], [place] [address] [place] [address] Care Team Providers Care Concrete Pipe Maker Name Role Phone Ashley ZUNIGA MD, Hermes Perez Primary Care Provid er Encounter Details Date Type Department Care Team (Latest Contact Info) Description 03/09/2020 Travel Social History Tobacco Use Types Packs/Day Years Used Date Smoking Tobacco: Every Day Cigarettes 0.5 15 Smokeless Tobacco: Never Alcohol Use Standard Drinks/Week Comments No 0 (1 standard drink = 0.6 oz pur e alcohol) Comments No Sex and Gender Information Value Date Recorded Sex Assigned at Not on file Legal Sex Female 9:15 PM CONTRACT WRITER Gender Identity Not on file Sexual Orientation Not on file COVID-19 Exposure Response Date Recorded In the last month, have you been in contact with someone who was confirmed or suspected to have Coronavirus / COVID-19? No / Unsure 03/09/2020 3:44 PM CONTRACT WRITER documented as of this encounter Plan of Treatment Not on file documented as of this encounter Visit Diagnoses Not on filedocumented in this encounter Care Teams Concrete Pipe Maker Relationship Specialty Start Date End Date Hermes Ramirez III, MD [address] [facility] [address] [place] [address] PCP - General FAMILY PRACTICE 06/20/17 documented as of this encounter
--- OUTSIDE RECORDS SUMMARY | 2024-03-20 11:53 | XMS_ITS | Encounter Summary ---
Author Organization [facility] Address [address] [place] [address]. [place], [place] [address] [place] [address] Care Team Providers Care Mainstreaming Facilitator Name Role Phone Ashley ZUNIGA MD, Hermes Perez Primary Care Provid er Reason for Visit * Reason Onset Date Comments Question 04/08/2020 Encounter Details Date Type Department Care Team (Late st Contact Info) Description 04/08/2020 Telephone [facility] [address] [place] [address] [place] [address] [place] [address] Question Social History Tobacco Use Types Packs/Day Years Used Date Smoking Tobacco: Every Day Cigarettes 0.5 15 Smokeless Tobacco: Never Alcohol Use Standard Drinks/Week Comments No 0 (1 standard drink = 0.6 oz pur e alcohol) Comments No Sex and Gender Information Value Date Recorded Sex Assigned at Not on file Legal Sex Female 9:15 PM TALENT ADVISOR Gender Identity Not on file Sexual Orientation Not on file COVID-19 Exposure Response Date Recorded In the last month, have you been in contact with someone who was confirmed or suspected to have Coronavirus / COVID-19? Yes 03/30/2020 3:08 PM TALENT ADVISOR documented as of this encounter Progress Notes * Leonila Marquez LPN - 04/08/2020 8:17 AM CST Patient calls stating that she had a headache last week and went to the Er in [place]. She states that she was given one bag of fluids and feels like she is swollen. She does have an appointment withher pcp today and asks if she should keep this appointment or go back to the Er. She was advised tokeep her appointment with the pcp, she can go to Er for worsening symptoms. A new appointment was scheduled for patient as she NSH her last appointment in clinic. NT ADVISOR documented in this encounter Plan of Treatment Not on file documented as of this encounter Visit Diagnoses Not on filedocumented in this encounter Care Teams Mainstreaming Facilitator Relationship Specialty Start Date End Date Hermes Ramirez III, MD [address] [address] PCP - General FAMILY PRACTICE 06/20/17 documented as of this encounter
--- OUTSIDE RECORDS SUMMARY | 2024-03-20 11:53 | XMS_ITS | Encounter Summary ---
Author Organization [facility] Address [address] [place] [address]. [place], [place] [id number] [place] [address] Care Team Providers Care Ramp Boss Name Role Phone Ashley ZUNIGA MD, Hermes Perez Primary Care Provid er Encounter Details Date Type Department Care Team (Latest Contact Info) Description 02/26/2020 Travel Social History Tobacco Use Types Packs/Day Years Used Date Smoking Tobacco: Every Day Cigarettes 0.5 15 Smokeless Tobacco: Never Alcohol Use Standard Drinks/Week Comments No 0 (1 standard drink = 0.6 oz pur e alcohol) Comments No Sex and Gender Information Value Date Recorded Sex Assigned at Not on file Legal Sex Female 9:15 PM PROJECT DEVELOPMENT LEADER Gender Identity Not on file Sexual Orientation Not on file COVID-19 Exposure Response Date Recorded In the last month, have you been in contact with someone who was confirmed or suspected to have Coronavirus / COVID-19? No / Unsure 02/26/2020 6:35 PM PROJECT DEVELOPMENT LEADER documented as of this encounter Plan of Treatment Not on file documented as of this encounter Visit Diagnoses Not on filedocumented in this encounter Care Teams Ramp Boss Relationship Specialty Start Date End Date Hermes Ramirez III, MD [address] [facility] [address] [place] [address] PCP - General FAMILY PRACTICE 06/20/17 documented as of this encounter
--- OUTSIDE RECORDS SUMMARY | 2024-03-20 11:53 | XMS_ITS | Encounter Summary ---
Author Organization [facility] Address [address] [place] [address]. [place], [place] [address] [place] [address] Care Team Providers Care Web Development Manager Name Role Phone Ashley ZUNIGA MD, Hermes Perez Primary Care Provid er Reason for Visit * Reason Comments Lab (SCAN) Encounter Details Date Type Department Care Team (Late st Contact Info) Description 04/13/2020 Scan [facility] [address] [place], [place] [id number] Scanned, Documents Lab (SCAN) Social History Tobacco Use Types Packs/Day Years Used Date Smoking Tobacco: Every Day Cigarettes 0.5 15 Smokeless Tobacco: Never Alcohol Use Standard Drinks/Week Comments No 0 (1 standard drink = 0.6 oz pur e alcohol) Comments No Sex and Gender Information Value Date Recorded Sex Assigned at Not on file Legal Sex Female 9:15 PM GAS LINE REPAIRER Gender Identity Not on file Sexual Orientation Not on file COVID-19 Exposure Response Date Recorded In the last month, have you been in contact with someone who was confirmed or suspected to have Coronavirus / COVID-19? No / Unsure 04/15/2020 9:53 AM GAS LINE REPAIRER documented as of this encounter Plan of Treatment Not on file documented as of this encounter Procedures Procedure Name Priority Date/Time Associated Diagnosis Comments OUTSIDE LAB (SCAN ORDER) Routine 04/13/2020 documented in this encounter Results * OUTSIDE LAB (SCAN) (04/13/2020) 04/13/2020 us Documents Scanned SCANNING Final Result Performing Organization Address City/State/[facility] Co de Phone Number HS ONBASE documented in this encounter Visit Diagnoses Not on filedocumented in this encounter Care Teams Web Development Manager Relationship Specialty Start Date End Date Hermes Ramirez III, MD [address] [address] PCP - General FAMILY PRACTICE 06/20/17 documented as of this encounter
--- OUTSIDE RECORDS SUMMARY | 2024-03-20 11:53 | XMS_ITS | Encounter Summary ---
Author Organization [facility] Address [address] [place] [address]. [place], [place] [phone] [place] [address] Care Team Providers Care Green Belt Name Role Phone Ashley ZUNIGA MD, Hermes Perez Primary Care Provid er Encounter Details Date Type Department Care Team (Late st Contact Info) Description 04/08/2020 Scan [facility] [address] [place] [address] Scanned, Documents Social History Tobacco Use Types Packs/Day Years Used Date Smoking Tobacco: Every Day Cigarettes 0.5 15 Smokeless Tobacco: Never Alcohol Use Standard Drinks/Week Comments No 0 (1 standard drink = 0.6 oz pur e alcohol) Comments No Sex and Gender Information Value Date Recorded Sex Assigned at Not on file Legal Sex Female 9:15 PM SEO EXPERT Gender Identity Not on file Sexual Orientation Not on file COVID-19 Exposure Response Date Recorded In the last month, have you been in contact with someone who was confirmed or suspected to have Coronavirus / COVID-19? No / Unsure 04/15/2020 9:53 AM SEO EXPERT documented as of this encounter Plan of Treatment Not on file documented as of this encounter Visit Diagnoses Not on filedocumented in this encounter Care Teams Green Belt Relationship Specialty Start Date End Date Hermes Ramirez III, MD [address] [facility] [address] [place] [address] PCP - General FAMILY PRACTICE 06/20/17 documented as of this encounter
--- OUTSIDE RECORDS SUMMARY | 2024-03-20 11:54 | XMS_ITS | Encounter Summary ---
Author Organization [facility] Address [address] [place] [address]. [place], [place] [id number] [place] [address] Care Team Providers Care Lawn Maintenance Worker Name Role Phone Ashley ZUNIGA MD, Hermes Perez Primary Care Provid er Reason for Visit * Reason Comments Headache Encounter Details Date Type Department Care Team (Late st Contact Info) Description 02/14/2020 9:36 PM ESCROW REPRESENTATIVE - 02/14/2020 10:23 PM ESCROW REPRESENTATIVE [facility] [address] [place] [address] Merary Harris PA [address] [place] [address] Headache Discharge Disposition: Home or Self Care [...] on file Legal Sex Female 9:15 PM ESCROW REPRESENTATIVE Gender Identity Not on file Sexual Orientation Not on file COVID-19 Exposure Response Date Recorded In the last month, have you been in contact with someone who was confirmed or suspected to have Coronavirus / COVID-19? No / Unsure 02/14/2020 9:24 PM ESCROW REPRESENTATIVE documented as of this encounter Last Filed Vital Signs Vital Sign Reading Time Taken Comments Blood Pressure 168/97 02/14/2020 9:25 PM ESCROW REPRESENTATIVE Pulse 83 02/14/2020 9:25 PM ESCROW REPRESENTATIVE Temperature 37.2 ??C (99 ??F) 02/14/2020 9:25 PM ESCROW REPRESENTATIVE Respiratory Rate 18 02/14/2020 9:25 PM ESCROW REPRESENTATIVE Oxygen Saturation 98% 02/14/2020 9:25 PM ESCROW REPRESENTATIVE Inhaled Oxygen Concentration - - Weight 74.8 kg (165 lb) 02/14/2020 9:25 PM ESCROW REPRESENTATIVE Height 157.5 cm (5' 2 ) 02/14/2020 9:25 PM ESCROW REPRESENTATIVE Body Mass Index 30.18 02/14/2020 9:25 PM ESCROW REPRESENTATIVE documented in this encounter Discharge Instructions * Discharge Instructions* MAYITO Cabrales - 02/14/2020 9:58 PM ESCROW REPRESENTATIVE Go home, rest and hydrate with plenty of water. Follow-up with your primary care physician for further migraine management and control. Return if symptoms worsen or persist. OW REPRESENTATIVE OW REPRESENTATIVE * Attachments The following attachments cannot be sent through Care Everywhere. * How to Keep Track of Your Headaches (Citizen Of [place]) documented in this encounter Medications at Time of Discharge metoprolol succinate ER (TOPROL-XL) 100 MG 24 hr tablet Take 1 tablet (100 mg total) by mouth 2 (two) times a day. 12/30/2019 butorphanol 10 MG/ML nasal spray by Nasal route every 4 (four) hours as needed. 04/15/2020 metoprolol succinate ER 50 MG 24 hr tablet Take 1 tablet (50 mg total) by mouth daily. 90 tablet 1 11/26/2019 02/24/2020 SODIUM BICARBONATE 650 MG tablet TAKE 2 [...] as of this encounter ED Notes * MAYITO Cabrales - 02/14/2020 9:48 PM CST ED NOTE Chief Complaint Chief Complaint Patient presents with ??? Headache History of Present Illness Elsa Browne is a 39-year-old who presents with complaints of pain. Patient states this is perher typical migraine. States that started last night into this morning. 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 Patient states she gets migraines at least 1-2 times a month and is typically related to her hormones. Patient denies any visual changes numbness or tingling. Denies any change or di fference in her migraine today. Medical History ALLERGIES: Allergies Allergen Reactions ??? Aspirin Other (see comment) C ??? Erythromycin Unknown ??? Toradol [Ketorolac Tromethamine] Other (see comment) KIDNEY MEDICATIONS: Prior to Admission medications Medication Sig Start Date End Date Taking? Authorizing Provider butorphanol 10 MG/ML nasal spray by Nasal route every 4 (four) hours as needed. Doc Abstract metoprolol succinate ER 50 MG 24 hr tablet Take 1 tablet (50 mg total) by mouth daily. 11/26/19 02/24/20 Geovanni Leon MD SODIUM BICARBONATE 650 MG tablet TAKE [...] for chills and fever. HENT: Negative for congestion and sinus pain. Respiratory: Negative for cough and shortness of breath. Gastrointestinal: Positive for nausea. Negative for abdominal pain and vomiting. Musculoskeletal: Negative for back pain and neck pain. Neurological: Positive for headaches. Negative for numbness. Hematological: Negative for adenopathy. Except as noted in HPI, 10 point review of systems was completed and otherwise unremarkable or noncontributory to chief complaint. Physical Exam Filed Vitals: 02/14/20 2125 BP: (!) 168/97 Pulse: 83 Resp: 18 Temp: 99 ??F (37.2 ??C) TempSrc: Tympanic SpO2: 98% Weight: 74.8 kg (165 lb) Height: 5' 2 (1.575 m) Physical Exam Constitutional: She is oriented to person, place, and time. She appears well- developed and well-nourished. Eyes: Pupils are equal, round, and reactive to light. EOM are normal. Cardiovascular: Normal rate, regular rhythm and normal heart sounds. No murmur heard. Pulmonary/Chest: Effort normal and breath sounds normal. No respiratory distress. She has no wheezes. Neurological: She is alert and oriented to person, place, and time. Nursing note and vitals reviewed. Diagnostic Studies / Procedures ELECTROCARDIOGRAMS: No results found for this visit on 02/14/20. LABORATORY STUDIES: No results found for this visit on 02/14/20. IMAGING STUDIES No orders to display ED Course / Medical Decision Making MDM Medications HYDROmorphone (DILAUDID) injection 0.5 mg (has no administration in time range) ondansetron (ZOFRAN-ODT) disintegrating tablet 4 mg (has no administration in time range) diphenhydrAMINE (BENADRYL) capsule 50 mg (has no administration in time range) Clinical Impression Intractable migraine without status migrainosus, unspecified migraine type (Primary) Disposition: Discharge Current Discharge Medication List Follow-up: Hermes Ramirez III, MD [facility] [address] [address] Call in 2 days For re-evaluation MAYITO CABRLAES 02/14/2020 Referring Provider: No ref. provider found PCP: MD Merary RAMIREZ III, PA 02/14/20 2411 Cosigned by Abdelrahman Renner MD at 02/16/2020 8:22 PM ESCROW REPRESENTATIVE OW REPRESENTATIVE OW REPRESENTATIVE * Daron Millard RN - 02/14/2020 9:38 PM CST PATIENT PRESENTS TO ER WITH COMPLAINT OF MIGRAINE. STS SHE HAS A HX OF SIMILAR PAIN AND HAS BEEN ATTEMPTING TO CONTROL IT AT HOME WITH OTC MEDS. OW REPRESENTATIVE * Rachael Velázquez RN - 02/14/2020 9:27 PM CST Pt c/o headache that started last noc. C/o nausea but no vomiting. Stated she have migraines OW REPRESENTATIVE documented in this encounter Plan of Treatment Not on file documented as of this encounter Visit Diagnoses Diagnosis Intractable migraine without status migrainosus, unspecified migraine type- Primary documented in this encounter Administered Medications Inactive Administered Medications - up to 3 most recent administrations Medication Order MAR Action Action Date Dose Rate Site diphenhydrAMINE (BENADRYL) capsule 50 mg 50 mg, Oral, Once, 1 dose, On Mon02/14/20 at 2200 Given 02/14/2020 10:00 PM ESCROW REPRESENTATIVE 50 mg HYDROmorphone (DILAUDID) injection 0.5 mg 0.5 mg, Intramuscular, Once, 1 dose, On Mon02/14/20 at 2200, Administer slowly over at least 2-3 minutes. Given 02/14/2020 10:00 PM ESCROW REPRESENTATIVE 0.5 mg Right Deltoid ondansetron (ZOFRAN-ODT) disintegrating tablet 4 mg 4 mg, Oral, Once, 1 dose, On Mon02/14/20 at 2200 Given 02/14/2020 10:00 PM ESCROW REPRESENTATIVE 4 mg documented in this encounter Active and Recently Administered Medications Times are shown in ESCROW REPRESENTATIVE. Scheduled Medication Order 02/12/2020 02/13/2020 02/14/2020 diphenhydrAMINE (BENADRYL) capsule 50 mg (COMPLETED) 50 mg, Oral, Once, 1 dose, On Mon02/14/20 at 2200 2200 (Given - Provid er: Daron Millard RN) HYDROmorphone (DILAUDID) injection 0.5 mg (COMPLETED) 0.5 mg, Intramuscular, Once, 1 dose, On Mon02/14/20 at 2200, Administer slowly over at least 2-3 minutes. 2200 (Given - Provid er: Daron Millard RN) ondansetron (ZOFRAN-ODT) disintegrating tablet 4 mg (COMPLETED) 4 mg, Oral, Once, 1 dose, On Mon02/14/20 at 2200 2200 (Given - Provid er: Daron Millard RN) documented in this encounter Care Teams Lawn Maintenance Worker Relationship Specialty Start Date End Date Hermes Ramirez III, MD [facility] [address] [facility] [address] [place] [address] PCP - General FAMILY PRACTICE 06/20/17 documented as of this encounter
--- OUTSIDE RECORDS SUMMARY | 2024-03-20 11:54 | XMS_ITS | Encounter Summary ---
Author Organization [facility] Address [address] [place] [address]. [place], [place] [address] [place] [address] Care Team Providers Care Single Stayer Operator Name Role Phone Ashley ZUNIGA MD, Hermes Perez Primary Care Provid er Reason for Visit * Reason Comments Back Pain Encounter Details Date Type Department Care Team ([facility] st Contact Info) Description 02/12/2019 4:56 PM AGRISCIENCE TECHNOLOGY INSTRUCTOR - 02/12/2019 6:55 PM AGRISCIENCE TECHNOLOGY INSTRUCTOR Emergency [facility] [address] [place] [address] [place] [id number] Akil Soriano MD [facility] [place] [address] Back Pain Discharge Disposition: Home or Self [...] on file Legal Sex Female 9:15 PM AGRISCIENCE TECHNOLOGY INSTRUCTOR Gender Identity Not on file Sexual Orientation Not on file documented as of this encounter Last Filed Vital Signs Vital Sign Reading Time Taken Comments Blood Pressure 124/74 02/12/2019 6:55 PM AGRISCIENCE TECHNOLOGY INSTRUCTOR Pulse 75 02/12/2019 6:55 PM AGRISCIENCE TECHNOLOGY INSTRUCTOR Temperature 36.5 ??C (97.7 ??F) 02/12/2019 5:07 PM CS T Respiratory Rate 18 02/12/2019 6:55 PM AGRISCIENCE TECHNOLOGY INSTRUCTOR Oxygen Saturation 100% 02/12/2019 6:11 PM AGRISCIENCE TECHNOLOGY INSTRUCTOR Inhaled Oxygen Concentration - - Weight 72.6 kg (160 lb) 02/12/2019 5:07 PM AGRISCIENCE TECHNOLOGY INSTRUCTOR Height 157.5 cm (5' 2 ) 02/12/2019 5:07 PM AGRISCIENCE TECHNOLOGY INSTRUCTOR Body Mass Index 29.26 02/12/2019 5:07 PM AGRISCIENCE TECHNOLOGY INSTRUCTOR documented in this encounter Discharge Instructions * Discharge Instructions* Akil Soriano MD - 02/12/2019 6:50 PM AGRISCIENCE TECHNOLOGY INSTRUCTOR No strenuous activity or heavy lifting. Use medications as prescribed. Keep appointment with your primary care physician tomorrow. SCIENCE TECHNOLOGY INSTRUCTOR SCIENCE TECHNOLOGY INSTRUCTOR * Attachments The following attachments cannot be sent through Care Everywhere. * Low Back Pain Discharge Instructions (Bulgarian) documented in this encounter Medications at Time of Discharge butorphanol 10 MG/ML nasal spray by Nasal route every 4 (four) hours as needed. 1 cyclobenzaprine 10 MG tablet Take 1 tablet (10 mg total) by mouth 3 (three) times daily as needed for Muscle Spasms. 15 tablet 02/12/2019 0 lidocaine 5 % Place 1 patch onto the skin daily for 12 doses. Remove & Discard patch within 12 hours or as directed by 12 patch 02/12/2019 9 methylPREDNISolon e, JAUN, 4 MG tablet Take 1 tablet (4 mg total) by mouth daily. 6 TAB ON DAY 1, 5 TAB DAY 2, 4 TAB DAY 3, 3 TAB DAY 4, 2 TAB DAY 5, AND 1 TAB DAY 6 1 each 02/12/2019 0 sodium bicarbonate 650 MG tabletIndications :Pt needs a follow up Take 2 tablets (1,300 mg total) by mouth 3 (three) times a day. 180 tablet 11/06/2018 0 tacrolimus (PROGRAF) 1 MG capsule Take 1 tablet by mouth 2 (two) times daily. 02/06/2017 3 documented as of this encounter ED Notes * Akil Soriano MD - 02/12/2019 5:38 PM CST I, zak Cheng, am personally taking down the notes in the presence of Akil Soriano MD.?Take no action on this note until reviewed and authenticated??by the physician. Chief Complaint Chief Complaint Patient presents with ??? Back Pain History of Present Illness The patient is a 38 year old female smoker with a PMHx of anxiety and CKD, presents to the ED for evaluation of lower back pain onset 1 day ago. The patient states that her pain radiates into her right leg. The patient reports that her was pushing on her back last PM which made her back pain worse. The patient states that she has an appointment with her PCP tomorrow. The patient denies any urinary or bowel incontinence, weakness in her legs, numbness in the groin, fever, or dysuria. Thepatient denies any complaint, distress or injury in addition to those already recorded. The patientis otherwise in their baseline state of health and no other positive complaints were stated upon rev iew of systems. History provided by: Patient technology solutions architect used: No Medical History ALLERGIES: Allergies Allergen Reactions ??? Aspirin Other (see comment) C ??? Erythromycin Unknown ??? Toradol [Ketorolac Tromethamine] Other (see comment) KIDNEY MEDICATIONS: Prior to Admission medications Medication Sig Start Date End Date Taking? Authorizing Provider butorphanol 10 MG/ML nasal spray Yes Doc Abstract cyclobenzaprine 10 MG tablet Take 1 tablet (10 mg total) by mouth 3 (three) times daily as needed for Muscle Spasms. 02/12/19 Yes Akil Soriano MD lidocaine 5 % Place 1 patch onto the skin daily for 12 doses. Remove & Discard patch within 12 hours or as directed by 02/12/19 02/24/19 Yes Akil Soriano MD methylPREDNISolone, JAUN, 4 MG tablet Take 1 tablet (4 mg total) by mouth daily. 6 TAB ON DAY 1, 5 TAB DAY 2, 4 TAB DAY 3, 3 TAB DAY 4, 2 TAB DAY 5, AND 1 TAB DAY 6 02/12/19 Yes Akil Soriano MD sodium bicarbonate 650 MG tablet Take 2 tablets (1,300 mg total) by mouth 3 (three) times a day. 11/06/18 Yes Shimon Wheatley MD PAST MEDICAL HISTORY: Past Medical History: Diagnosis Date ??? Anemia ??? Biliary atresia congenital ??? Chronic kidney disease ??? Thrombocytopenia (CMS/HCC) PAST SURGICAL HISTORY: Past [...] of Systems Constitutional: Negative for fever. HENT: Negative. Eyes: Negative. Respiratory: Negative. Cardiovascular: Negative. Gastrointestinal: Negative. No bowel incontinence Endocrine: Negative. Genitourinary: Negative for dysuria and enuresis. Musculoskeletal: Positive for back pain (lower). Skin: Negative. Allergic/Immunologic: Negative. Neurological: Negative for weakness (in legs) and numbness (in groin). Hematological: Negative. Psychiatric/Behavioral: Negative. Physical Exam Filed Vitals: 02/12/19 1707 02/12/19 1811 BP: (!) 142/95 120/83 Pulse: 94 Resp: 18 Temp: 97.7 ??F (36.5 ??C) TempSrc: Temporal SpO2: 100% 100% Weight: 72.6 kg (160 lb) Height: 5' 2 (1.575 m) Physical Exam Nursing note and vitals reviewed. Gen: alert and oriented x 3. GCS 15. Well nourished, well hydrated in no distress. Texting when I enter the room. Heent: perrl, eomi, op clear, neck supple no meningismus/meningitic signs, no lad Cardiac: Nl S1/S2, RRR, no murmurs rubs gallops. Pulmonary: Clear to auscultation b/l. No wheeze, rhonchi, crackles Abdomen: s/nt/nd NABS. No rebound, guarding or rigidity Back: No midline LS-spine tenderness. There is reproducible tenderness to the paraspinal muscles ofthe mid to lower cervical spine extending into the superior portion of the right buttock. Sensationintact in the perineum. Extremity: Pulses 5/5 bilaterally. Pt. able to move all four extremities. No rash, Cyanosis, Edema Neuro: Moves all four extremities equally Diagnostic Studies / Procedures ELECTROCARDIOGRAMS: No results found for this visit on 02/12/19. LABORATORY STUDIES: Results for orders placed or performed during the hospital encounter of 02/12/19 TEST URINE Result Value Ref Range PREG TEST NEGATIVE Specific [place] (U) 1.010 URINALYSIS WI REFLEX TO CULTURE Result Value Ref Range COLOR YELLOW TRANSPARENCY CLEAR Specific [place] (U) 1.010 1.000 - 1.025 U PH 6.0 5.0 - 8.0 LEUKOCYTE ESTERASE NEGATIVE NEGATIVE NITRITES NEGATIVE NEGATIVE PROTEIN, URINE NEGATIVE NEGATIVE URINE GLUCOSE NEGATIVE NEGATIVE U KETONES NEGATIVE NEGATIVE UROBILINOGEN 0.2 <1.0 EU/DL Urine Bilirubin NEGATIVE NEGATIVE BLOOD TRACE (A) NEGATIVE WBC/HPF 0-5 0 - 5 /HPF RBC/HPF 0-5 0 - 5 /HPF EPI/HPF FEW /LPF CULTURE & SENSITIVITY INDICATED? NOT INDICATED IMAGING STUDIES XR LUMB SPINE 3V Final Result by User, [id number] (02/13 1828) EXAMINATION: XR LUMB SPINE 3V HISTORY: Back pain radiating to right hip DATE: 02/12/2019 5:53 PM COMPARISON: None TECHNIQUE: AP, lateral and coned-down lateral lumbosacral views FINDINGS: 5 lumbar vertebrae. Alignment unremarkable. Vertebral body heights are maintained. No acute fracture. Mild endplate degenerative osseous by formation with preservation of disc space heights. IMPRESSION: No acute osseous abnormality. Mild chronic degenerative change. Interpreted By: Henry Whitlock MD, 02/12/2019 6:26 PM ED Course / Medical Decision Making Patient was given a dose of Valium and lidocaine patch was applied to the affected area. She was given dose of prednisone orally. X-ray shows no bony abnormality. Treatment options alternatives were discussed with the patient. She does have a primary care appointment tomorrow she is recommended to keep. She will be given prescriptions for Flexeril, lidocaine and Medrol Dosepak. She may return to the ED for any worsening symptoms or concerns. Patient expressed understanding. Medications lidocaine 4 % patch 1 patch (1 patch Transdermal Patch Applied 02/12/19 985) diazepam (VALIUM) tablet 5 mg (5 mg Oral Given 02/12/191740) predniSONE (DELTASONE) tablet 40 mg (40 mg Oral Given 02/12/191740) Current Discharge Medication List START taking these medications Details cyclobenzaprine 10 MG tablet Take 1 tablet (10 mg total) by mouth 3 (three) times daily as needed for Muscle Spasms. Qty: 15 tablet, Refills: 0 Class: Eprescribe Pharmacy: [facility]/pharmacy #[id number] [place] [address] (Ph #: [phone]) lidocaine 5 % Place 1 patch onto the skin daily for 12 doses. Remove & Discard patch within 12 hours or as directed by Qty: 12 patch, Refills: 0 Class: Eprescribe Pharmacy: [facility]/pharmacy #[address] [place] [address] (Ph #: [phone]) methylPREDNISolone, JAUN, 4 MG tablet Take 1 tablet (4 mg total) by mouth daily. 6 TAB ON DAY 1, 5 TAB DAY 2, 4 TAB DAY 3, 3 TAB DAY 4, 2 TAB DAY 5, AND 1 TAB DAY 6 Qty: 1 each, Refills: 0 Class: Eprescribe Pharmacy: [facility]/pharmacy #[address] [place] [address] (Ph #: [phone]) Hermes Ramirez III, MD [facility] [address] [address] Keep appointment tomorrow Clinical Impression Low back pain (Primary) Disposition: Discharge Taurus Grover, 02/12/19, 18:50. Provider Attestation: Portions of this note were transcribed by the scribe. I, Akil Soriano, personally performed the history, physical exam and medical decision making; and confirmed the accuracy of the information inthe transcribed note. Authenticated by Dr. Soriano on 02/12/2019 Akil Soriano MD 02/12/19 7736 SCIENCE TECHNOLOGY INSTRUCTOR * Carmelita Forbes RN - 02/12/2019 4:34 PM CST Patient presents to ed with co mid back pain. Has history of sciatic pain. Patient states pain began yesterday to mid back, radiates to right hip. Rates pain 8/10 on scale. SCIENCE TECHNOLOGY INSTRUCTOR documented in this encounter Plan of Treatment Not on file documented as of this encounter Procedures Procedure Name Priority Date/Time Associated Diagnosis Comments XR LUMB SPINE 3V STAT 02/12/2019 5:53 PM AGRISCIENCE TECHNOLOGY INSTRUCTOR URINALYSIS WI REFLEX TO CULTURE STAT 02/12/2019 5:15 PM AGRISCIENCE TECHNOLOGY INSTRUCTOR TEST URINE STAT 02/12/2019 5:15 PM AGRISCIENCE TECHNOLOGY INSTRUCTOR documented in this encounter Results * XR LUMB SPINE 3V (02/12/2019 5:53 PM AGRISCIENCE TECHNOLOGY INSTRUCTOR) Anatomical Region Laterality Modality Spine Radiographic Katy ging 02/12/2019 6:26 PM AGRISCIENCE TECHNOLOGY INSTRUCTOR Impressions 02/12/2019 6:27 PM AGRISCIENCE TECHNOLOGY INSTRUCTOR IMPRESSION: No acute osseous abnormality. ??Mild chronic degenerative change. Interpreted By: Henry Whitlock MD, 02/12/2019 6:26 PM Narrative 02/12/2019 6:27 PM AGRISCIENCE TECHNOLOGY INSTRUCTOR EXAMINATION: XR LUMB SPINE 3V HISTORY: Back pain radiating to right hip DATE: 02/12/2019 5:53 PM COMPARISON: None TECHNIQUE: AP, lateral and coned-down lateral lumbosacral views FINDINGS: 5 lumbar vertebrae. ??Alignment unremarkable. ??Vertebral body heights are maintained. ??No acute fracture. ??Mild endplate degenerative osseous by formation with preservation of disc space heights. Procedure Note Henry Whitlock MD - 02/12/2019 EXAMINATION: XR LUMB SPINE 3V HISTORY: Back pain radiating to right hip DATE: 02/12/2019 5:53 PM COMPARISON: None TECHNIQUE: AP, lateral and coned-down lateral lumbosacral views FINDINGS: 5 lumbar vertebrae. Alignment unremarkable. Vertebral bodyheights are maintained. No acute fracture. Mild endplate degenerativeosseous by formation with preservation of disc space heights. IMPRESSION: No acute osseous abnormality. Mild chronic degenerativechange. Interpreted By: Henry Whitlock MD, 02/12/2019 6:26 PM us Akil Soriano MD GENERAL IMAGING Final Resul t * (ABNORMAL) URINALYSIS WI REFLEX TO CULTURE (02/12/2019 5:15 PM AGRISCIENCE TECHNOLOGY INSTRUCTOR) COLOR (U) YELLOW 02/12/2019 5:32 PM [facility] TRANSPARENCY CLEAR 02/12/2019 5:32 PM [facility] SPECIFIC GRAVITY (U) 1.010 1.000 - 1.025 02/12/2019 5:32 PM [facility] U PH 6.0 5.0 - 8.0 02/12/2019 5:32 PM [facility] LEUKOCYTES (U) NEGATIVE NEGATIVE 02/12/2019 5:32 PM [facility] NITRITES NEGATIVE NEGATIVE 02/12/2019 5:32 PM [facility] PROTEIN (U) NEGATIVE NEGATIVE 02/12/2019 5:32 PM [facility] URINE GLUCOSE NEGATIVE NEGATIVE 02/12/2019 5:32 PM [facility] KETONES MG/DL (U) NEGATIVE NEGATIVE 02/12/2019 5:32 PM [facility] UROBILINOGEN 0.2 <1.0 EU/DL 02/12/2019 5:32 PM [facility] BILIRUBIN (U) NEGATIVE NEGATIVE 02/12/2019 5:32 PM [facility] BLOOD (U) TRACE(A) NEGATIVE 02/12/2019 5:32 PM [facility] WBC/HPF 0-5 0 - 5 /HPF 02/12/2019 5:32 PM [facility] RBC/HPF 0-5 0 - 5 /HPF 02/12/2019 5:32 PM [facility] EPI/HPF FEW /LPF 02/12/2019 5:32 PM [facility] CULTURE & SENSITIVITY INDICATED? NOT INDICATED 02/12/2019 5:32 PM [facility] URINE SPECIMEN OBTAINED BY CLEAN CATCH PROCEDURE / Unknown 02/12/2019 5:15 PM AGRISCIENCE TECHNOLOGY INSTRUCTOR us Akil Soriano MD URINE ORDERABLES Final Resu lt [address] [address], [place] [phone] * TEST URINE (02/12/2019 5:15 PM AGRISCIENCE TECHNOLOGY INSTRUCTOR) PREG TEST NEGATIVE 02/12/2019 5:28 PM AGRISCIENCE TECHNOLOGY INSTRUCTOR [facility] SPECIFIC GRAVITY (U) 1.010 02/12/2019 5:28 PM AGRISCIENCE TECHNOLOGY INSTRUCTOR [facility] URINE SPECIMEN OBTAINED BY CLEAN CATCH PROCEDURE / Unknown 02/12/2019 5:15 PM AGRISCIENCE TECHNOLOGY INSTRUCTOR us Akil Soriano MD URINE ORDERABLES Final Resu lt Performing Organization Address City/[facility]/ZIP Co de Phone Number [address] [address], [place] [phone] documented in this encounter Visit Diagnoses Diagnosis Low back pain- Primary Lumbago documented in this encounter Administered Medications Inactive Administered Medications - up to 3 most recent administrations Medication Order MAR Action Action Date Dose Rate Site diazepam (VALIUM) tablet 5 mg 5 mg, Oral, Once, 1 dose, On Mon02/12/19 at 1745 Given 02/12/2019 5:41 PM AGRISCIENCE TECHNOLOGY INSTRUCTOR 5 mg lidocaine 4 % patch 1 patch 1 patch, Transdermal, Administer over 12 Hours, Every 24 hours, First dose on Mon02/12/19 at 1745, Until Discontinued Patch Applied 02/12/2019 5:43 PM AGRISCIENCE TECHNOLOGY INSTRUCTOR 1 patch Othe r predniSONE (DELTASONE) tablet 40 mg 40 mg, Oral, Once, 1 dose, On Mon02/12/19 at 1745 Given 02/12/2019 5:41 PM AGRISCIENCE TECHNOLOGY INSTRUCTOR 40 mg documented in this encounter Active and Recently Administered Medications Times are shown in AGRISCIENCE TECHNOLOGY INSTRUCTOR. Scheduled Medication Order 02/10/2019 02/11/2019 02/12/2019 diazepam (VALIUM) tablet 5 mg (COMPLETED) 5 mg, Oral, Once, 1 dose, On Mon02/12/19 at 1745 1741 (Given - Provid er: Laly Walker RN) lidocaine 4 % patch 1 patch 1 patch, Transdermal, Administer over 12 Hours, Every 24 hours, First dose on Mon02/12/19 at 1745, Until Discontinued 1743 (Patch Applied - Provider: Laly Walker RN)1900 (Due: Patch Removed - Provider: Automatic Discharge Provider - Comment: Time automatically adjusted from order being discontinued) predniSONE (DELTASONE) tablet 40 mg (COMPLETED) 40 mg, Oral, Once, 1 dose, On Mon02/12/19 at 1745 1741 (Given - Provid er: Laly Walker RN) documented in this encounter Care Teams Single Stayer Operator Relationship Specialty Start Date End Date Hermes Ramirez III, MD [address] [facility] [address] [place] [address] PCP - General FAMILY PRACTICE 06/20/17 documented as of this encounter
--- OUTSIDE RECORDS SUMMARY | 2024-03-20 11:54 | XMS_ITS | Encounter Summary ---
Author Organization [facility] Address [address] [place] [address]. [place] [address] [place] [address] Care Team Providers Care Graphic Coordinator Name Role Phone Ashley ZUNIGA MD, Hermes Perez Primary Care Provid er Encounter Details Date Type Department Care Team (Late st Contact Info) Description 05/30/2019 Orders Only [facility] [place] [address] Murphy Mathew MD [address] [place] [address] Social History Tobacco Use Types Packs/Day Years Used Date Smoking Tobacco: Every Day Cigarettes 0.5 15 Smokeless Tobacco: Never Alcohol Use Standard Drinks/Week Comments No 0 (1 standard drink = 0.6 oz pur e alcohol) Comments No Sex and Gender Information Value Date Recorded Sex Assigned at Not on file Legal Sex Female 9:15 PM MUSEUM 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 [address] [place] [address] PCP - General FAMILY PRACTICE 06/20/17 documented as of this encounter
--- OUTSIDE RECORDS SUMMARY | 2024-03-20 11:54 | XMS_ITS | Encounter Summary ---
Author Organization [facility] Address [address] [place] [address]. [place], [place] [address] [place] [address] Care Team Providers Care Formstone Fitter Name Role Phone Ashley ZUNIGA MD, Hermes Perez Primary Care Provid er Reason for Visit * Reason Onset Date Comments Other 01/14/2019 er visit Encounter Details Date Type Department Care Team ([facility] st Contact Info) Description 01/14/2019 Telephone [facility] [address] [place] [address] [place] [address] [place] [address] Other (er visit) Social History Tobacco Use Types Packs/Day Years Used Date Smoking Tobacco: Every Day Cigarettes 0.5 15 Smokeless Tobacco: Never Alcohol Use Standard Drinks/Week Comments No 0 (1 standard drink = 0.6 oz pur e alcohol) Comments No Sex and Gender Information Value Date Recorded Sex Assigned at Not on file Legal Sex Female 9:15 PM PRODUCT TEST ENGINEER Gender Identity Not on file Sexual Orientation Not on file documented as of this encounter Progress Notes * Chela Menchaca, ALBER - 01/14/2019 8:16 AM CDT Patient called and stated she was in the ER on 01-08-19, she refused to be admitted. She has an appointment on 02-25-19 and wants to make sure that appointment would be okay. She also stated she has been taking motrin BID for a week or so and has only been taking a Sodium Bicarb twice a day instead of three times a day. I pulled the information for Dr. Mathew and he gave the order to stop taking Motrin and NSAID'S and take her Sodium Bicarb as directed.. She is to keep her appointment. Patient voiced understanding. documented in this encounter Plan of Treatment Not on file documented as of this encounter Visit Diagnoses Not on filedocumented in this encounter Care Teams Formstone Fitter Relationship Specialty Start Date End Date Hermes Ramirez III, MD [address] [address] PCP - General FAMILY PRACTICE 06/20/17 documented as of this encounter
--- OUTSIDE RECORDS SUMMARY | 2024-03-20 11:54 | XMS_ITS | Encounter Summary ---
Author Organization [facility] Address [address] [place] [address]. [place], [place] [address] [place] [address] Care Team Providers Care Birth Certificate Clerk Name Role Phone Ashley ZUNIGA MD, Hermes Perez Primary Care Provid er Encounter Details Date Type Department Care Team (Latest Contact Info) Description 02/18/2020 Travel Social History Tobacco Use Types Packs/Day Years Used Date Smoking Tobacco: Every Day Cigarettes 0.5 15 Smokeless Tobacco: Never Alcohol Use Standard Drinks/Week Comments No 0 (1 standard drink = 0.6 oz pur e alcohol) Comments No Sex and Gender Information Value Date Recorded Sex Assigned at Not on file Legal Sex Female 9:15 PM OFFSET PLATEMAKER Gender Identity Not on file Sexual Orientation Not on file COVID-19 Exposure Response Date Recorded In the last month, have you been in contact with someone who was confirmed or suspected to have Coronavirus / COVID-19? No / Unsure 02/18/2020 6:58 PM OFFSET PLATEMAKER documented as of this encounter Plan of Treatment Not on file documented as of this encounter Visit Diagnoses Not on filedocumented in this encounter Care Teams Birth Certificate Clerk Relationship Specialty Start Date End Date Hermes Ramirez III, MD [address] [facility] [address] [place] [address] PCP - General FAMILY PRACTICE 06/20/17 documented as of this encounter
--- OUTSIDE RECORDS SUMMARY | 2024-03-20 11:54 | XMS_ITS | Encounter Summary ---
Author Organization [facility] Address [address] [place] [address]. [place], [place] [id number] [place] [id number] Care Team Providers Care Sample Wrapper Name Role Phone Ashley ZUNIGA MD, Hermes Perez Primary Care Provid er Reason for Visit * Reason Comments Headache Encounter Details Date Type Department Care Team (Late st Contact Info) Description 04/18/2019 10:16 AM BAKER APPRENTICE - 04/18/2019 11:54 AM BAKER APPRENTICE Emergency [place] [facility] [place] [address] Bailee Merchant MD [address] [place] [address] Headache Discharge Disposition: Home or Self Care [...] on file Legal Sex Female 9:15 PM BAKER APPRENTICE Gender Identity Not on file Sexual Orientation Not on file documented as of this encounter Last Filed Vital Signs Vital Sign Reading Time Taken Comments Blood Pressure 165/96 04/18/2019 11:45 AM BAKER APPRENTICE Pulse 79 04/18/2019 11:43 AM BAKER APPRENTICE Temperature 36.4 ??C (97.5 ??F) 04/18/2019 9:56 AM CS T Respiratory Rate 18 04/18/2019 11:43 AM BAKER APPRENTICE Oxygen Saturation 100% 04/18/2019 11:45 AM BAKER APPRENTICE Inhaled Oxygen Concentration - - Weight 72.6 kg (160 lb) 04/18/2019 9:56 AM BAKER APPRENTICE Height 157.5 cm (5' 2 ) 04/18/2019 9:56 AM BAKER APPRENTICE Body Mass Index 29.26 04/18/2019 9:56 AM BAKER APPRENTICE documented in this encounter Discharge Instructions * Discharge Instructions* Bailee Merchant MD - 04/18/2019 11:41 AM BAKER APPRENTICE Migraine Medications given in the ER Continue home medications as previously prescribed Return to ER for worsening pain, vomiting, fever or other concerns. R APPRENTICE * Attachments The following attachments cannot be sent through Care Everywhere. * Migraine Headache Discharge Instructions (Georgian) documented in this encounter Medications at Time of Discharge butorphanol 10 MG/ML nasal spray by Nasal route every 4 (four) hours as needed. 04/15/2020 sodium bicarbonate 650 MG tabletIndications :Pt needs a follow up Take 2 tablets (1,300 mg total) by mouth 3 (three) times a day. 180 tablet 11/06/2018 05/09/2019 tacrolimus (PROGRAF) 1 MG capsule Take 1 tablet by mouth 2 (two) times daily. 02/06/2017 07/27/2022 documented as of this encounter ED Notes * Bailee Merchant MD - 04/18/2019 10:19 AM CST Chief Complaint I, Jessica Lopez, acting as a scribe, am personally taking down the notes in the presence of Dr. Bailee Merchant MD. Take no action on this note until reviewed and authenticated by the physician. Chief Complaint Patient presents with ??? Headache History of Present Illness History provided by: Patient Patient is a 38 year old female with a PMHx of migraines presenting to the ED seeking evaluation for a headache onset this am. Patient states that she woke up early this am with a headache, so she took some Tylenol and tried to go back to sleep as she had to get up early. She notes that woke up later on and that the headache was still persistent. Patient reports associated symptoms of nausea, blurred vision, photophobia, and sensitivity to sound. She adds that her last headache was approximately x1 month ago. Patient mentions that she had a uterine ablation in hopes of helping the headaches with no relief. Patient reports that she has a history of a liver transplant and smokes less than a half a pack of cigarettes per day. Patient denies fever, chills, vomiting, diarrhea, back or neck pain, numbness, tingling, weakness, CP, or SOB. Patient is otherwise in baseline state of health with no other positive complaints at this time. Medical History ALLERGIES: Allergies Allergen Reactions ??? Aspirin Other (see comment) C ??? Erythromycin Unknown ??? Toradol [Ketorolac Tromethamine] Other (see comment) KIDNEY MEDICATIONS: Prior to Admission medications Medication Sig Start Date End Date Taking? Authorizing Provider butorphanol 10 MG/ML nasal spray Doc Abstract sodium bicarbonate 650 MG tablet Take 2 tablets (1,300 mg total) by mouth 3 (three) times a day. 11/06/18 Shimon Wheatley MD tacrolimus (PROGRAF) 1 MG capsule Take [...] of Systems Constitutional: Negative. HENT: Negative. Eyes: Positive for photophobia and visual disturbance (Blurred vision). Respiratory: Negative. Cardiovascular: Negative. Gastrointestinal: Positive for nausea. Endocrine: Negative. Genitourinary: Negative. Musculoskeletal: Negative. Skin: Negative. Allergic/Immunologic: Negative. Neurological: Positive for headaches. Hematological: Negative. Psychiatric/Behavioral: Negative. Physical Exam Filed Vitals: 04/18/19 0956 04/18/19 1143 BP: (!) 165/94 (!) 165/96 Pulse: 98 79 Resp: 16 18 Temp: 97.5 ??F (36.4 ??C) TempSrc: Temporal SpO2: 100% 100% Weight: 72.6 kg (160 lb) Height: 5' 2 (1.575 m) vss except for tachycardia and elevated blood pressure Physical Exam Constitutional: She is oriented to person, place, and time. She appears well- developed and well-nourished. HENT: Head: Normocephalic and atraumatic. Right Ear: External ear normal. Left Ear: External ear normal. Nose: Nose normal. Mouth/Throat: Oropharynx is clear and moist. Eyes: Pupils are equal, round, and reactive to light. Conjunctivae and EOM are normal. Neck: Normal range of motion. Neck supple. Cardiovascular: Normal rate, regular rhythm and normal heart sounds. Pulmonary/Chest: Effort normal and breath sounds normal. Abdominal: Soft. Bowel sounds are normal. Musculoskeletal: Normal range of motion. Neurological: She is alert and oriented to person, place, and time. Skin: Skin is warm and dry. Psychiatric: She has a normal mood and affect. Her behavior is normal. Nursing note and vitals reviewed. Diagnostic Studies / Procedures ELECTROCARDIOGRAMS: No results found for this visit on 04/18/19. LABORATORY STUDIES: No results found for this visit on 04/18/19. IMAGING STUDIES No orders to display ED Course / Medical Decision Making Medications diphenhydrAMINE (BENADRYL) injection 25 mg (25 mg Intramuscular Given 04/18/19 1112) nalbuphine (NUBAIN) injection 10 mg (10 mg Intramuscular Given 04/18/19 1109) promethazine (PHENERGAN) tablet 25 mg (25 mg Oral Given 04/18/19 1109) Current Discharge Medication List Hermes Ramirez III, MD [address] [facility] [address] [facility] [address] In 1 week ED Course as of Apr 18 1147 Diana Apr 18, 2019 1138 Unable to get an IV. Patient was given im medication. She states that she is feeling better. Will d/c home to follow up as an outpatient. Return for worsening problems or concerns. [MA] ED Course User Index [MA] Bailee Merchant MD Clinical Impression Migraine (Primary) Jessica Lopez, 04/18/19, 11:47. Provider Attestation: Portions of this note were transcribed by the scribe. I, BAILEE MERCHANT MD, personally performed the history, physical exam and medical decision making; and confirmed the accuracy of the information in the transcribed note. Authenticated by BAILEE MERCHANT MD on 04/18/2019 Disposition: Discharge Bailee Merchant MD 04/18/19 1147 R APPRENTICE * Merary Ramirez RN - 04/18/2019 10:05 AM CST PT ARRIVES PER POV FROM HOME WITH C/O MIGRAINE HEADACHE SINCE LAST NIGHT. PT STATES HAS NOT TAKEN ANY OF HER PRN MIGRAINE MEDS TODAY BECAUSE SHE IS HERE WITH HER BROTHER WHO IS HAVING SURGERY. PT ALERT AND ORIENTED. NO DISTRESS NOTED. R APPRENTICE documented in this encounter Plan of Treatment [...] mg, Intramuscular, Once, 1 dose, On Diana 04/18/19 at 1100, For IV administration, give no faster than 25 mg/min. Given 04/18/2019 11:12 AM BAKER APPRENTICE 25 mg Left Deltoid nalbuphine (NUBAIN) injection 10 mg 10 mg, Intramuscular, Once, 1 dose, On Diana 04/18/19 at 1100 Given 04/18/2019 11:09 AM BAKER APPRENTICE 10 mg Left Upper Outer Quadrant promethazine (PHENERGAN) tablet 25 mg 25 mg, Oral, Once, 1 dose, On Diana 04/18/19 at 1100 Given 04/18/2019 11:09 AM BAKER APPRENTICE 25 mg documented in this encounter Active and Recently Administered Medications Times are shown in BAKER APPRENTICE. Scheduled Medication Order 04/16/2019 04/17/2019 04/18/2019 diphenhydrAMINE (BENADRYL) injection 25 mg (COMPLETED) 25 mg, Intramuscular, Once, 1 dose, On Diana 04/18/19 at 1100, For IV administration, give no faster than 25 mg/min. 1112 (Given - Provid er: Shelli Perez RN) nalbuphine (NUBAIN) injection 10 mg (COMPLETED) 10 mg, Intramuscular, Once, 1 dose, On Diana 04/18/19 at 1100 1109 (Given - Provid er: Shelli Perez RN) promethazine (PHENERGAN) tablet 25 mg (COMPLETED) 25 mg, Oral, Once, 1 dose, On Diana 04/18/19 at 1100 1109 (Given - Provid er: Shelli Perez RN) documented in this encounter Care Teams Sample Wrapper Relationship Specialty Start Date End Date Hermes Ramirez III, MD [address] [facility] [address] [place] [address] PCP - General FAMILY PRACTICE 06/20/17 documented as of this encounter
--- OUTSIDE RECORDS SUMMARY | 2024-03-20 11:54 | XMS_ITS | Encounter Summary ---
Author Organization [facility] Address [address] [place] [address]. 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 No / Unsure 10/06/2019 10:03 AM CDT documented as of this encounter Last Filed Vital Signs Vital Sign Reading Time Taken Comments Blood Pressure 116/74 10/06/2019 10:15 AM CDT Pulse 66 10/06/2019 10:11 AM CDT Temperature 36.4 ??C (97.6 ??F) 10/06/2019 10:11 AM C DT Respiratory Rate 18 10/06/2019 10:11 AM CDT Oxygen Saturation 99% 10/06/2019 10:15 AM CDT Inhaled Oxygen Concentration - - Weight 72.6 kg (160 lb) 10/06/2019 10:11 AM CDT Height 157.5 cm (5' 2 ) 10/06/2019 10:11 AM CDT Body Mass Index 29.26 10/06/2019 10:11 AM CDT documented in this encounter Discharge Instructions * Discharge Instructions* Akil Soriano MD - 10/06/2019 11:30 AM CDT Stay well-hydrated. Continue with all medications as previously prescribed. Return to the ER for any worsening symptoms or concerns. * Attachments The following attachments cannot be sent through Care Everywhere. * Migraines Discharge Instructions (Hong Konger) documented in this encounter Medications at Time of Discharge butorphanol 10 MG/ML nasal spray by Nasal route every 4 (four) hours as needed. 04/15/2020 metoprolol succinate ER 25 MG 24 hr tablet Take 25 mg by mouth daily. 11/26/2019 SODIUM BICARBONATE 650 MG tablet TAKE 2 [...] ED Notes * Akil Soriano MD - 10/06/2019 11:35 AM CDT Chief Complaint Chief Complaint Patient presents with ??? Headache History of Present Illness 39-year-old female presents with migraine headache. Patient has a history of migraines and states that this episode began at roughly 3 AM. Was slow in onset. No specific triggers. She describes generalized global head pain without radiation to the neck. Mild photophobia. No visual changes. No focalneurologic complaints. The pattern is very similar to her migraine headaches in the past. No chest pain or shortness of breath. No fevers or neck pain. Patient did take medication at home with minimal relief in symptoms. No other complaints at this time. Medical History ALLERGIES: Allergies Allergen Reactions ??? Aspirin Other (see comment) C ??? Erythromycin Unknown ??? Toradol [Ketorolac Tromethamine] Other (see comment) KIDNEY MEDICATIONS: Prior to Admission medications Medication Sig Start Date End Date Taking? Authorizing Provider butorphanol 10 MG/ML nasal spray Yes Doc Abstract metoprolol succinate ER 25 MG 24 hr tablet Take 25 mg by mouth daily. Yes Doc Abstract SODIUM BICARBONATE 650 MG tablet TAKE 2 TABLETS BY MOUTH 3 (THREE) TIMES A DAY. PT NEEDS A FOLLOW UP 09/30/19 Yes Bethanie Leonard MD tacrolimus (PROGRAF) 1 MG capsule Take 1 tablet by mouth 2 (two) times daily. 02/06/17 Yes Doc Abstract tiZANidine HCl 2 MG Cap Take 1 tablet by mouth 3 (three) times daily. Yes Doc Abstract PAST MEDICAL HISTORY: Past Medical [...] No Review of Systems Review of Systems All other systems reviewed and are negative. Physical Exam Filed Vitals: 10/06/19 1011 10/06/19 1015 BP: 116/74 116/74 Pulse: 66 Resp: 18 Temp: 97.6 ??F (36.4 ??C) TempSrc: Temporal SpO2: 100% 99% Weight: 72.6 kg (160 lb) Height: 5' 2 (1.575 m) Physical Exam Gen: alert and oriented x 3. GCS 15. Well nourished, well hydrated in no distress. Heent: perrl, eomi, op clear, funduscopic exam within normal limits without papilledema or hemorrhage. Neck supple no meningismus/meningitic signs, no lad Cardiac: Nl S1/S2, RRR, no murmurs rubs gallops. Pulmonary: Clear to auscultation b/l. No wheeze, rhonchi, crackles Abdomen: s/nt/nd NABS. No rebound, guarding or rigidity Extremity: Pt. able to move all four extremities. No rash, Cyanosis, Edema SKIN: No urticaria or rashes noted. Skin turgor appears normal. No jaundice noted. Neuro: CN III-XII intact. Strength 5/5 bilaterally, DTR's 2+ bilaterally Diagnostic Studies / Procedures ELECTROCARDIOGRAMS: No results found for this visit on 10/06/19. LABORATORY STUDIES: No results found for this visit on 10/06/19. IMAGING STUDIES No orders to display ED Course / Medical Decision Making Patient has a normal neurologic exam. Treatment options and alternatives were discussed. I did initially order an IV dose of Phenergan, Benadryl, Nubain which is her typical cocktail. However, the hospital is currently out of Nubain and therefore morphine 2 mg was substituted. Patient is currently feel improved and will be discharged home. A follow-up with primary care as needed or return to the ED for worsening symptoms or concerns. Patient expressed understanding. Clinical Impression Migraine (Primary) Disposition: Discharge Akil Soriano MD 10/06/19 1137 * Amarilis Hameed RN - 10/06/2019 10:06 AM CDT Migraine onset 0330, took ibuprofen, no relief, at 830 too Tinazidine no relief, States this is a typical Migraine for her. documented in this encounter Plan of Treatment [...] 25 mg, Intravenous, Once, 1 dose, On 10/06/19 at 1030, For IV administration, give no faster than 25 mg/min. Given 10/06/2019 11:05 AM CDT morphine injection 2 mg 2 mg, Intravenous, Once, 1 dose, On 10/06/19 at 1100 Given 10/06/2019 11:04 AM CDT 2 mg promethazine (PHENERGAN) 25 mg in sodium chloride 0.9 % 50 mL IVPB 25 mg, Intravenous, Administer over 15 Minutes, Once, 1 dose, On 10/06/19 at 1030 New Bag 10/06/2019 11:01 AM CDT 25 mg 200 mL/hr documented in this encounter Active and Recently Administered Medications Times are shown in CDT. Scheduled Medication Order 10/04/2019 10/05/2019 10/06/2019 diphenhydrAMINE (BENADRYL) injection 25 mg (COMPLETED) 25 mg, Intravenous, Once, 1 dose, On 10/06/19 at 1030, For IV administration, give no faster than 25 mg/min. 1105 (Given - Provid er: Guillermo Clements RN) morphine injection 2 mg (COMPLETED) 2 mg, Intravenous, Once, 1 dose, On 10/06/19 at 1100 1104 (Given - Provid er: Guillermo Clements RN) promethazine (PHENERGAN) 25 mg in sodium chloride 0.9 % 50 mL IVPB (COMPLETED) 25 mg, Intravenous, Administer over 15 Minutes, Once, 1 dose, On 10/06/19 at 1030 1101 (New Bag - Prov ider: Guillermo Clements RN)1116 (Infusion Stop Time - Provider: Guillermo Clements RN) sodium chloride 0.9% bolus infusion SOLN 1,000 mL 1,000 mL, Intravenous, Administer over 15 Minutes, Bolus (Once), 1 dose, On 10/06/19 at 1030 1105 (Not Given - Pr ovider: Guillermo Clements RN - Reason: Patient/family declined) documented in this encounter Care Teams Bar Examiner Relationship Specialty Start Date End Date Hermes Ramirez III, MD [address] [address] PCP - General FAMILY PRACTICE 06/20/17 documented as of this encounter
--- OUTSIDE RECORDS SUMMARY | 2024-03-20 11:54 | XMS_ITS | Encounter Summary ---
Author Organization [facility] Address [address] [place] [address]. [place], [place] [id number] [place] [address] Care Team Providers Care Normalizer Name Role Phone Ashley ZUNIGA MD, Hermes Perez Primary Care Provid er Reason for Visit * Reason Comments Lab (SCAN) Encounter Details Date Type Department Care Team (Late st Contact Info) Description 11/22/2019 Scan [facility] [address] [place] [id number] Scanned, Documents Lab (SCAN) Social History Tobacco Use Types Packs/Day Years Used Date Smoking Tobacco: Every Day Cigarettes 0.5 15 Smokeless Tobacco: Never Alcohol Use Standard Drinks/Week Comments No 0 (1 standard drink = 0.6 oz pur e alcohol) Comments No Sex and Gender Information Value Date Recorded Sex Assigned at Not on file 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 No / Unsure 11/26/2019 8:37 AM CDT documented as of this encounter Plan of Treatment Not on file documented as of this encounter Procedures Procedure Name Priority Date/Time Associated Diagnosis Comments OUTSIDE LAB (SCAN ORDER) Routine 11/22/2019 documented in this encounter Results * OUTSIDE LAB (11/22/2019) 11/22/2019 us Documents Scanned SCANNING Final Result [facility] documented in this encounter Visit Diagnoses Not on filedocumented in this encounter Care Teams Normalizer Relationship Specialty Start Date End Date Hermes Ramirez III, MD [address] [facility] [address] [place] [address] PCP - General FAMILY PRACTICE 06/20/17 documented as of this encounter
--- OUTSIDE RECORDS SUMMARY | 2024-03-20 11:54 | XMS_ITS | Encounter Summary ---
Author Organization [facility] Address [facility] [place] [address] [place] [address] Care Team Providers Care Clamp Forklift Operator Name Role Phone Ashley ZUNIGA MD, Hermes Perez Primary Care Provid er Reason for Visit * Reason Comments Headache Pt arrives to ED wit h c/o typical headache and sore throat. Pt states that she feels she might have strep. Also, she has been nauseated, but no vomiting, and is light sensitive. Has an appointment with neuro in the near future. Encounter Details Date Type Department Care Team (Late st Contact Info) Description 02/18/2020 7:12 PM ROOFING SUBCONTRACTOR - 02/18/2020 9:05 PM [facility] [address] [place] [address] Keagan Goldstein MD [address] [place], [place] [id number] Headache (Pt arrives to ED with c/o typical headache and sore throat. Pt states that she feels she might have strep. Also, she has been nauseated, but no vomiting, and is light sensitive. Has an appointment with neuro in the near future.) Discharge Disposition: Home or Self Care (Routine Discharge) Social History Tobacco Use Types Packs/Day Years Used Date Smoking Tobacco: Every Day Cigarettes 0.5 15 Smokeless Tobacco: Never Alcohol Use Standard Drinks/Week Comments No 0 (1 standard drink = 0.6 oz pur e alcohol) Comments No Sex and Gender Information Value Date Recorded Sex Assigned at Not on file Legal Sex Female 9:15 PM ROOFING SUBCONTRACTOR Gender Identity Not on file Sexual Orientation Not on file COVID-19 Exposure Response Date Recorded In the last month, have you been in contact with someone who was confirmed or suspected to have Coronavirus / COVID-19? No / Unsure 02/18/2020 6:58 PM ROOFING SUBCONTRACTOR documented as of this encounter Last Filed Vital Signs Vital Sign Reading Time Taken Comments Blood Pressure 163/97 02/18/2020 9:01 PM ROOFING SUBCONTRACTOR Pt has not taken her BP med today Pulse 76 02/18/2020 7:13 PM ROOFING SUBCONTRACTOR Temperature 37.1 ??C (98.7 ??F) 02/18/2020 7 :13 PM ROOFING SUBCONTRACTOR Respiratory Rate 16 02/18/2020 7:13 PM ROOFING SUBCONTRACTOR Oxygen Saturation 100% 02/18/2020 7:1 3 PM ROOFING SUBCONTRACTOR Inhaled Oxygen Concentration - - Weight 72.6 kg (160 lb) 02/18/2020 7:13 PM ROOFING SUBCONTRACTOR Height 157.5 cm (5' 2 ) 02/18/2020 7:13 PM ROOFING SUBCONTRACTOR Body Mass Index 29.26 02/18/2020 7:13 PM ROOFING SUBCONTRACTOR documented in this encounter Discharge Instructions * Attachments The following attachments cannot be sent through Care Everywhere. * Migraines Discharge Instructions (Czech) * Viral Pharyngitis (Czech) documented in this encounter Medications at Time [...] as of this encounter ED Notes * Keagan Goldstein MD - 02/18/2020 7:38 PM CST Chief Complaint Chief Complaint Patient presents with ??? Headache Pt arrives to ED with c/o typical headache and sore throat. Pt states that she feels she might havestrep. Also, she has been nauseated, but no vomiting, and is light sensitive. Has an appointment with neuro in the near future. History of Present Illness This is a 39-year-old female with a chronic history of migraine headaches. Has history of chronic kidney disease she is a status post liver transplant 23 years ago. She can complaining of pain on theright side of the head, associated with light intolerance and nausea. No fevers. Feels the pain is similar to other migraines that she had. States she has an appointment with neurology on the . History sore throat and, has been hurting when she swallows. No fevers She denies any fevers, denies chest pain, denies shortness of breath. Medical History ALLERGIES: Allergies Allergen Reactions ??? Aspirin Other (see comment) C ??? Erythromycin Unknown ??? Toradol [Ketorolac Tromethamine] Other (see comment) KIDNEY MEDICATIONS: Prior to Admission medications Medication Sig Start Date End Date Taking? Authorizing Provider acetaminophen 500 MG tablet Take 1 tablet (500 mg total) by mouth every 6 (six) hours as needed forPain. 02/18/20 02/28/20 Yes Keagan Goldstein MD metoprolol succinate ER 50 MG 24 hr tablet Take 1 tablet (50 mg total) by mouth daily. 11/26/19 02/24/20 Yes Geovanni Leon MD tacrolimus (PROGRAF) 1 MG capsule Take 1 tablet by mouth 2 (two) times daily. 02/06/17 Yes Doc Abstract butorphanol 10 MG/ML nasal spray by Nasal route every 4 (four) hours as needed. Doc Abstract SODIUM BICARBONATE 650 MG tablet TAKE 2 TABLETS BY MOUTH 3 (THREE) TIMES A DAY. PT NEEDS A FOLLOW UP 09/30/19 Bethanie Leonard MD tiZANidine HCl 2 MG Cap Take 1 [...] and are negative. Physical Exam Filed Vitals: 02/18/20 1913 BP: (!) 153/89 Pulse: 76 Resp: 16 Temp: 98.7 ??F (37.1 ??C) TempSrc: Temporal SpO2: 100% Weight: 72.6 kg (160 lb) Height: 5' 2 (1.575 m) Physical Exam Vitals signs and nursing note reviewed. HENT: Head: Normocephalic and atraumatic. Nose: Nose normal. Mouth/Throat: Mouth: Mucous membranes are moist. Pharynx: Posterior oropharyngeal erythema present. No oropharyngeal exudate. Eyes: Pupils: Pupils are equal, round, and reactive to light. Neck: Musculoskeletal: Normal range of motion. Cardiovascular: Rate and Rhythm: Normal rate and regular rhythm. Pulses: Normal pulses. Heart sounds: Normal heart sounds. Pulmonary: Effort: Pulmonary effort is normal. Breath sounds: Normal breath sounds. Abdominal: General: Abdomen is flat. Bowel sounds are normal. Musculoskeletal: Normal range of motion. Skin: General: Skin is warm. Neurological: General: No focal deficit present. Mental Status: She is alert and oriented to person, place, and time. Mental status is at baseline. Psychiatric: Mood and Affect: Mood normal. Behavior: Behavior normal. Diagnostic Studies / Procedures ELECTROCARDIOGRAMS: No results found for this visit on 02/18/20. LABORATORY STUDIES: No results found for this visit on 02/18/20. IMAGING STUDIES No orders to display ED Course / Medical Decision Making ED Course as of Feb 18 2052 Tue Feb 18, 20202049 She states she is feeling better, and ready to go home. The headache is down. [EG] ED Course User Index [EG] Keagan Goldstein MD Clinical Impression Migraine headache (Primary) Viral pharyngitis Disposition: Discharge Keagan Goldstein MD 02/18/202052 ING SUBCONTRACTOR documented in this encounter Plan of Treatment Not on file documented as of this encounter Visit Diagnoses Diagnosis Migraine headache- Primary Migraine, unspecified, without mention of intractable migraine without mention of status migrainosus Viral pharyngitis Acute pharyngitis documented in this encounter Administered Medications Inactive Administered Medications - up to 3 most recent administrations Medication Order MAR Action Action Date Dose Rate Site diphenhydrAMINE (BENADRYL) injection 25 mg 25 mg, Intramuscular, Once, 1 dose, On Mon02/18/20 at 1999, For IV administration, give no faster than 25 mg/min. Given 02/18/2020 8:15 PM ROOFING SUBCONTRACTOR 25 mg Left Dorsal Gluteal morphine injection 2 mg 2 mg, Intramuscular, Once, 1 dose, On Mon02/18/20 at 1999 Given 02/18/2020 8:14 PM ROOFING SUBCONTRACTOR 2 mg Right Dorsal Gluteal promethazine (PHENERGAN) injection 6.25 mg 6.25 mg, Intramuscular, Once, 1 dose, On Mon02/18/20 at 1999, For IV administration must be used with CAUTION. Dilute dose to 10 ml with NS and inject over 10 minutes through a running IV line. Given 02/18/2020 8:15 PM ROOFING SUBCONTRACTOR 6.25 mg Left Dorsal Gluteal documented in this encounter Active and Recently Administered Medications Times are shown in ROOFING SUBCONTRACTOR. Scheduled Medication Order 02/16/2020 02/17/2020 02/18/2020 diphenhydrAMINE (BENADRYL) injection 25 mg (COMPLETED) 25 mg, Intramuscular, Once, 1 dose, On Mon02/18/20 at 1999, For IV administration, give no faster than 25 mg/min. 2014 (Given - Provid er: Shea Mayer RN) morphine injection 2 mg (COMPLETED) 2 mg, Intramuscular, Once, 1 dose, On 02/18/20 at 1999 2013 (Given - Provid er: Shea Mayer RN) promethazine (PHENERGAN) injection 6.25 mg (COMPLETED) 6.25 mg, Intramuscular, Once, 1 dose, On Mon02/18/20 at 2000, For IV administration must be used with CAUTION. Dilute dose to 10 ml with NS and inject over 10 minutes through a running IV line. 2014 (Given - Provid er: Shea Mayer RN) documented in this encounter Care Teams Clamp Forklift Operator Relationship Specialty Start Date End Date Hermes Ramirez III, MD [address] [place] [address] PCP - General FAMILY PRACTICE 06/20/17 documented as of this encounter
--- OUTSIDE RECORDS SUMMARY | 2024-03-20 11:54 | XMS_ITS | Encounter Summary ---
Author Organization [facility] Address [address] [place] [address]. [place] [address] [place] [address] Care Team Providers Care Ambulette Driver Name Role Phone Ashley ZUNIGA MD, Hermes Perez Primary Care Provid er Encounter Details Date Type Department Care Team (Late st Contact Info) Description 08/27/2019 Scan [facility] [address] [place] [id number] Scanned, Documents Social History Tobacco Use Types Packs/Day Years Used Date Smoking Tobacco: Every Day Cigarettes 0.5 15 Smokeless Tobacco: Never Alcohol Use Standard Drinks/Week Comments No 0 (1 standard drink = 0.6 oz pur e alcohol) Comments No Sex and Gender Information Value Date Recorded Sex Assigned at Not on file Legal Sex Female 9:15 PM LEAD NUCLEAR MEDICINE TECHNOLOGIST Gender Identity Not on file Sexual Orientation Not on file documented as of this encounter Plan of Treatment Not on file documented as of this encounter Visit Diagnoses Not on filedocumented in this encounter Care Teams Ambulette Driver Relationship Specialty Start Date End Date Hermes Ramirez III, MD [address] [facility] [address] [place] [address] PCP - General FAMILY PRACTICE 06/20/17 documented as of this encounter
--- OUTSIDE RECORDS SUMMARY | 2024-03-20 11:54 | XMS_ITS | Encounter Summary ---
Author Organization [facility] Address [address] [place] [address]. [place], [place] [address] [place] [address] Care Team Providers Care Centrifugal Extractor Operator Name Role Phone Ashley ZUNIGA MD, Hermes Perez Primary Care Provid er Reason for Visit * Reason Comments Follow Up Encounter Details Date Type Department Care Team (Late st Contact Info) Description 11/26/2019 8:45 AM CDT Office Visit [facility] [place] [address] Geovanni Leon MD [address] [place] [address] Follow Up Social History Tobacco Use Types Packs/Day Years Used Date Smoking Tobacco: Every Day Cigarettes 0.5 15 Smokeless Tobacco: Never Alcohol Use Standard Drinks/Week Comments No 0 (1 standard drink = 0.6 oz pur e alcohol) Comments No Sex and Gender Information Value Date Recorded Sex Assigned at Not on file Legal Sex Female 9:15 PM OIL EXPELLER Gender Identity Not on file Sexual Orientation Not on file COVID-19 Exposure Response Date Recorded In the last month, have you been in contact with someone who was confirmed or suspected to have Coronavirus / COVID-19? No / Unsure 11/26/2019 8:37 AM CDT documented as of this encounter Last Filed Vital Signs Vital Sign Reading Time Taken Comments Blood Pressure 166/101 11/26/2019 8:49 AM CDT Pulse 99 11/26/2019 8:49 AM CDT Temperature 36.6 ??C (97.8 ??F) 11/26/2019 8:49 AM CD T Respiratory Rate - - Oxygen Saturation - - Inhaled Oxygen Concentration - - Weight 79.6 kg (175 lb 7.8 oz) 11/26/2019 8:49 A M CDT Height 157.5 cm (5' 2 ) 11/26/2019 8:49 AM CDT Body Mass Index 32.1 11/26/2019 8:49 AM CDT documented in this encounter Progress Notes * Geovanni Leon MD - 11/26/2019 8:45 AM CDTAddended by: GEOVANNI LEON on: 11/26/2019 01:08 PM Modules accepted: Level of Service * Geovanni Leon MD - 11/26/2019 8:45 AM CDT Chief complaint: Follow Up Problem list: 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 Since her last visit, she has started running to lose weight. Unfortunately she has been plagued with right knee pain. She attributes her elevated blood pressure to pain. She is also trying to see orthopedics for the same. She feels her knee pain is not consistent with prior episodes of gout that she has experienced in the past. She was also recently evaluated in the ER for symptomatic UTI Treated with a course of doxycycline/cephalexin. She thinks she might be coming in with possible yeast infection. She denies any recent diarrhea. She does report taking Topamax episodically for her migraines/weight loss on account of the appetite suppressant effect. No reported chest pain, shortness of breath, nausea, vomiting, changes in bowel movements or urinary habits. Reports of being compliant with all her Medications. Renal ROS: Reported No hematuria, no diarrhea. Appetite is preserved. She takes her sodium bicarbonate regularly. Rest of the review of systems is negative except as described above. Past medical history: Past Medical History: Diagnosis [...] facility-administered medications for this visit. Physical Exam: Physical Exam Constitutional: She appears well-developed. HENT: Head: Normocephalic. Eyes: Conjunctivae are normal. Pupils are equal, round, and reactive to light. Cardiovascular: Normal rate and regular rhythm. No murmur heard. Pulmonary/Chest: Effort normal and breath sounds normal. No respiratory distress. Abdominal: Soft. She exhibits no distension. There is no tenderness. Musculoskeletal: She exhibits no edema. Neurological: She is alert. Skin: No rash noted. Psychiatric: Her behavior is normal. Nursing note and vitals reviewed. Diagnostic Studies Reviewed Today: BUN 39, creatinine 2.7 [prior creatinine was 2.4] calcium 8.4, potassium 4.4. Bicarbonate was 18. Impression CKD. This patient has CKD Stage IV. At present, the renal function is declining Recent CHRISTY may have been related to presentation with a urinary tract infection Encouraged increase oral intake, avoidance of NSAIDs Will obtain a FK506 level prior to next visit. Explained need for the timing of the FK506 blood draw. She appears euvolemic Normal anion gap metabolic acidosis; likely related to Topamax. Encouraged her to stop the same. She is currently on sodium bicarbonate 1300 mg 3 times a day Encouraged her to be compliant with sodium bicarbonate. She has not been entirely compliant with the bicarbonate therapy Hypertension, chronic. Home BP control is Not controlled . Increase metoprolol to succinate to 50 mg every 24. Anticipate better blood pressure control with control of the pain as well. ?? Thrombocytopenia, chronic. She has chronic thrombocytopenia; last platelet count was 67,000. Defer further management to hematology Follow up: 3 to 4 months with repeat BMP, FK506 Increase metoprolol to 50 mg every 24 CC: HERMES RAMIREZ III, MD documented in this encounter Plan of Treatment Not on file documented as of this encounter Visit Diagnoses Diagnosis Liver transplanted (CMS/HCC HHS/HCC)- Primary Liver replaced by transplant documented in this encounter Care Teams Centrifugal Extractor Operator Relationship Specialty Start Date End Date Hermes Ramirez III, MD [address] [facility] [address] [place] [address] PCP - General FAMILY PRACTICE 06/20/17 documented as of this encounter
--- OUTSIDE RECORDS SUMMARY | 2024-03-20 11:54 | XMS_ITS | Encounter Summary ---
Author Organization [facility] Address [address] [place] [address]. [place], [place] [id number] [place] [address] Care Team Providers Care Director Of Land Name Role Phone Ashley ZUNIGA MD, Hermes Perez Primary Care Provid er Encounter Details Date Type Department Care Team (Latest Contact Info) Description 10/06/2019 Travel Social History Tobacco Use Types Packs/Day Years Used Date Smoking Tobacco: Every Day Cigarettes 0.5 15 Smokeless Tobacco: Never Alcohol Use Standard Drinks/Week Comments No 0 (1 standard drink = 0.6 oz pur e alcohol) Comments No Sex and Gender Information Value Date Recorded Sex Assigned at Not on file Legal Sex Female 9:15 PM MANUFACTURING ADVISOR Gender Identity Not on file Sexual [...] in this encounter Care Teams Director Of Land Relationship Specialty Start Date End Date Hermes Ramirez III, MD [address] [facility] [address] [place] [address] PCP - General FAMILY PRACTICE 06/20/17 documented as of this encounter
--- OUTSIDE RECORDS SUMMARY | 2024-03-20 11:54 | XMS_ITS | Encounter Summary ---
Author Organization [facility] Address [address] [place] [address]. [place], [place] [id number] [place] [address] Care Team Providers Care Office Machine Embossograph Operator Name Role Phone Ashley ZUNIGA MD, Hermes Perez Primary Care Provid er Encounter Details Date Type Department Care Team (Latest Contact Info) Description 11/26/2019 Travel Social History Tobacco Use Types Packs/Day Years Used Date Smoking Tobacco: Every Day Cigarettes 0.5 15 Smokeless Tobacco: Never Alcohol Use Standard Drinks/Week Comments No 0 (1 standard drink = 0.6 oz pur e alcohol) Comments No Sex and Gender Information Value Date Recorded Sex Assigned at Not on file Legal Sex Female 9:15 PM MAIL HANDLER Gender Identity Not on file Sexual Orientation [...] on filedocumented in this encounter Care Teams Office Machine Embossograph Operator Relationship Specialty Start Date End Date Hermes Ramirez III, MD [address] [facility] [address] [place] [address] PCP - General FAMILY PRACTICE 06/20/17 documented as of this encounter
--- OUTSIDE RECORDS SUMMARY | 2024-03-20 11:54 | XMS_ITS | Encounter Summary ---
Author Organization [facility] Address [address] [place] [address]. [place], [place] [id number] [place] [address] Care Team Providers Care Core Drier Name Role Phone Ashley ZUNIGA MD, Hermes Perez Primary Care Provid er Reason for Visit * Reason Comments Back Pain Encounter Details Date Type Department Care Team (Late st Contact Info) Description 02/13/2019 11:13 AM BOX SEALING MACHINE CATCHER - 02/13/2019 1:13 PM BOX SEALING MACHINE CATCHER Emergency [facility] Emergency [address] [place] [address] Diana Mitchell, ELISA Back Pain Discharge Disposition: Home or Self [...] on file Legal Sex Female 9:15 PM BOX SEALING MACHINE CATCHER Gender Identity Not on file Sexual Orientation Not on file documented as of this encounter Last Filed Vital Signs Vital Sign Reading Time Taken Comments Blood Pressure 126/59 02/13/2019 12:06 PM BOX SEALING MACHINE CATCHER Pulse 97 02/13/2019 12:06 PM BOX SEALING MACHINE CATCHER Temperature 37.2 ??C (98.9 ??F) 02/13/2019 1 2:06 PM BOX SEALING MACHINE CATCHER Respiratory Rate 18 02/13/2019 12:0 6 PM BOX SEALING MACHINE CATCHER Oxygen Saturation 100% 02/13/2019 11: 10 AM BOX SEALING MACHINE CATCHER Inhaled Oxygen Concentration - - Weight 81.6 kg (179 lb 14.3 oz) 019 11:10 AM BOX SEALING MACHINE CATCHER Height 157.5 cm (5' 2 ) 02/13/2019 11:1 0 AM BOX SEALING MACHINE CATCHER Body Mass Index 32.9 02/13/2019 11:10 AM BOX SEALING MACHINE CATCHER documented in this encounter Discharge Instructions * Discharge Instructions* Diana Mercado NP - 02/13/2019 1:09 PM BOX SEALING MACHINE CATCHER -Take Lidoderm, Flexeril and Medrol DosPak as prescribed previously. -Stretch before exercising or doing any strenuous activity. -Push heavy objects across the floor instead of pulling or lifting. -When lifting is necessary, lift with your knees, not your back. -Avoid sudden movements and twisting motions when carrying objects. - Maintain good posture as often as possible. When standing, your weight should balanced evenly on both feet to avoid straining your muscles and joints. -Wear proper footwear. High heeled shoes are a common culprit, but even tennis shoes can be a problem if they don't provide you with proper support. -If prescribed medications, fill them and take as directed. -Follow up with your doctor or doctor referral, call next day to schedule an appointment for ED follow up in 7-10 days. -Return to the Emergency Department for new or worsening symptoms. Please read and follow additional written instructions provided Muscle relaxants as needed for spasms - these medications may cause drowsiness. You were given a dose of muscle relaxants and strong pain medication in the ED - both may cause drowsiness. Please do not engage in activities that require you to be alert while taking; such as driving a caror operating machinery. SEALING MACHINE CATCHER * Attachments The following attachments cannot be sent through Care Everywhere. * Sciatica Discharge Instructions (Italian) documented in this encounter Medications at Time [...] within 12 hours or as directed by MD Barrientos patch 02/12/2019 9 methylPREDNISolon e, JAUN, 4 [...] as of this encounter ED Notes * Ifrah Soares RN - 02/13/2019 12:12 PM CST Pt moved to the waiting room. Pillow and blanket given for comfort. SEALING MACHINE CATCHER * Diana Mercado NP - 02/13/2019 11:16 AM CST ED NOTE I, zak Wheeler, am personally taking down the notes in the presence of Diana Mercado NP.?Take no action on this note until reviewed and authenticated??by the physician. Chief Complaint Chief Complaint Patient presents with ??? Back Pain History of Present Illness History provided by: Patient 38 year old female presents to the ED due to complaints of lower back pain and right leg pain that started last night. Pt said that she went to [place] ER last night and had some x-rays done whichcame back negative for findings. Doctors there believed that it was her sciatic pain that was bothering her. She was prescribed medications but she hasn't been able to pick them up yet. She denies having any recent falls, injuries, abdominal pain, vomiting, numbness, or tingling. She states that she has a PCP appointment at 15:30 today and that she just needs pain medications to last her until then. Past history includes anemia, chronic kidney disease, and thrombocytopenia. Past surgical history includes inguinal hernia repair, ablation, liver transplant, and section. Pt occasionally smokes but denies any drug or alcohol use. Pt denies having any other complaints besides those above, pt is otherwise at baseline health. Medical History ALLERGIES: Allergies Allergen Reactions ??? Aspirin Other (see comment) C ??? Erythromycin Unknown ??? Toradol [Ketorolac Tromethamine] Other (see comment) KIDNEY MEDICATIONS: Prior to Admission medications Medication Sig Start Date End Date Taking? Authorizing Provider sodium bicarbonate 650 MG tablet Take 2 tablets (1,300 mg total) by mouth 3 (three) times a day. 11/06/18 Yes Shimon Wheatley MD tacrolimus (PROGRAF) 1 MG capsule Take 1 tablet by mouth 2 (two) times daily. 02/06/17 Yes Doc Abstract butorphanol 10 MG/ML nasal spray Doc Abstract cyclobenzaprine 10 MG tablet Take 1 tablet (10 mg total) by mouth 3 (three) times daily as needed for Muscle Spasms. 02/12/19 Akil Soriano MD lidocaine 5 % Place 1 patch onto the skin daily for 12 doses. Remove & Discard patch within 12 hours or as directed by 02/12/19 02/24/19 Akil Soriano MD methylPREDNISolone, JAUN, 4 MG tablet Take 1 tablet (4 mg total) by mouth daily. 6 TAB ON DAY 1, 5 TAB DAY 2, 4 TAB DAY 3, 3 TAB DAY 4, 2 TAB DAY 5, AND 1 TAB DAY 6 02/12/19 Akil Soriano MD PAST MEDICAL HISTORY: Past Medical History: Diagnosis Date ??? Anemia ??? Biliary atresia congenital ??? Chronic kidney disease ??? Thrombocytopenia (CMS/HCC) PAST SURGICAL HISTORY: Past Surgical History: Procedure Laterality Date ??? SECTION ??? INGUINAL HERNIA Bilateral age 5 ??? LIVER TRANSPLANTATION Endometrial ablation FAMILY HISTORY: Family History Problem Relation Name Age of Onset ??? Diabetes Neg Hx SOCIAL HISTORY: Social History Tobacco Use ??? Smoking status: Current Every Day Smoker Packs/day: 0.50 Years: 15.00 Pack years: 7.50 ??? Smokeless tobacco: Never Used Substance Use Topics ??? Alcohol use: No ??? Drug use: No Review of Systems Review of Systems Constitutional: Negative for activity change, appetite change, chills, fatigue and fever. HENT: Negative for congestion, rhinorrhea, sore throat and trouble swallowing. Eyes: Negative for visual disturbance. Respiratory: Negative for cough and shortness of breath. Cardiovascular: Negative for chest pain. Gastrointestinal: Positive for nausea. Negative for abdominal pain, diarrhea and vomiting. Endocrine: Negative. Genitourinary: Negative for difficulty urinating, dysuria, flank pain and frequency. Musculoskeletal: Positive for back pain. Positive: Right leg pain Skin: Negative for rash and wound. Allergic/Immunologic: Negative. Neurological: Negative for dizziness, syncope, light-headedness and numbness. Hematological: Negative. Psychiatric/Behavioral: Negative for suicidal ideas. Physical Exam Filed Vitals: 02/13/19 1110 02/13/19 1133 02/13/19 1206 BP: (!) 141/83 126/59 Pulse: 115 97 Resp: 20 18 Temp: 98.8 ??F (37.1 ??C) 98.9 ??F (37.2 ??C) TempSrc: Oral Oral SpO2: 100% Weight: 81.6 kg (179 lb 14.3 oz) Height: 5' 2 (1.575 m) Physical Exam Nursing note and vitals reviewed. Generalized Appearance: No apparent distress. Well developed. Well nourished. Skin: Warm and dry. No rash. Head: Normocephalic and atraumatic Eyes: Conjunctiva clear with no scleral icterus or jaundice. PERRL/EOMI Back: Patient is able to turn and reposition self without difficulty. Moves all extremities with purpose, no spasms or tremors. No obvious bruising, swelling, or abrasions. Tone and strength 5/5 to upper and lower extremities. Straight leg test negative bilaterally. Sensation to light touch intact.Upon midline palpation of the back, no step-off, deformity, or crepitus. DTR's intact. Right lumbarparaspinal muscle tenderness. Chest and Respiratory: Airway patent. Breath sounds equal. Lungs clear with auscultation. No stridor, wheezes, rales, or rhonchi. No accessory muscle use. No respiratory distress. Cardiovascular: Regular rhythm. Tachycardic. No murmur, rubs, or gallops. Vascular: Brisk capillary refill. Radial pulses 2+ bilaterally. Musculoskeletal: Normal ROM. No deformity. Neurologic: Alert and oriented x 3. No gross motor deficits. Mental Status: Normal affect. Genital-Rectal: female deferred Diagnostic Studies / Procedures ELECTROCARDIOGRAMS: No results found for this visit on 02/13/19. LABORATORY STUDIES: No results found for this visit on 02/13/19. Results for MISHA BROWNE ( ) as of 02/13/2019 11:20 Ref. Range 01/08/2019 22:11 01/08/2019 22:52 02/12/2019 17:15 02/12/2019 17:15 02/12/2019 17:53 PREG TEST Unknown NEGATIVE Results for MISHA BROWNE ( ) as of 02/13/2019 11:20 Ref. Range 02/12/2019 17:15 COLOR Unknown YELLOW TRANSPARENCY Unknown CLEAR Specific [place] (U) Unknown 1.010 U PH Latest Ref Range: 5.0 - 8.0 6.0 LEUKOCYTE ESTERASE Latest Ref Range: NEGATIVE NEGATIVE NITRITES Latest Ref Range: NEGATIVE NEGATIVE PROTEIN, URINE Latest Ref Range: NEGATIVE NEGATIVE U GLUCOSE Latest Ref Range: NEGATIVE NEGATIVE U KETONES Latest Ref Range: NEGATIVE NEGATIVE UROBILINOGEN Latest Ref Range: <1.0 EU/DL 0.2 Urine Bilirubin Latest Ref Range: NEGATIVE NEGATIVE BLOOD Latest Ref Range: NEGATIVE TRACE (A) WBC/HPF Latest Ref Range: 0 - 5 /HPF 0-5 RBC/HPF Latest Ref Range: 0 - 5 /HPF 0-5 EPI/HPF Latest Units: /LPF FEW IMAGING STUDIES No orders to display Radiology Results (Last 48 hours) 02/12/19 1753 XR LUMB SPINE 3V Final result Impression: IMPRESSION: No acute osseous abnormality. Mild chronic degenerative change. Interpreted By: Henry Whitlock MD, 02/12/2019 6:26 PM ED Course / Medical Decision Making MDM Number of Diagnoses or Management Options Acute back pain with sciatica, right: established, worsening Amount and/or Complexity of Data Reviewed Decide to obtain previous medical records or to obtain history from someone other than the patient:yes Review and summarize past medical records: yes Patient Progress Patient progress: stable ED Course as of Feb 13 1313 Wed Feb 13, 2019 1119 Seen in [place] on 02/12/19, had lumbar ZR, UA and UCG (negative), all with no acute findings. Discharged on Medrol DosPak, Lidoderm patches and Flexeril. Has been unable to get meds filled. Has appointment with PCP today at 1530. Here now because she has had nothing for pain and it is worse. Right paraspinous muscle tenderness, no cauda equina symptoms. No recent injury. Will give [place] and Norflex. [LF] 1306 Patient reports that her pain is unchanged, still has burning pain down right leg. Discussed burning pain is likely nerve related, needs to take Medrol DosPak/Lidoderm patches/Flexeril as previously prescribed. Keep appointment with PCP today. Patient tearful, states that Morphine or Dilaudid usually relieves her pain. I had a prolonged discussion with the patient about her pain out of proportion to findings and thatI am uncomfortable prescribing additional narcotics, Morphine or Dilaudid that she is requesting, as it is also in violation of our hospital policy/practice. The patient was not happy with me advising to continue her previously prescribed medications which are non-narcotic. The patient is not in agreement with my recommendations and is requesting different treatment against my advice. Aware to keep appointment, resume previously prescribed meds. Discussed all results and incidental findings with the patient. Supportive measures discussed. Signs and symptoms to monitor for, reasons to return to the emergency department, discharge, and follow-up instructions given to patient. Patient verbalized understanding, denies further questions, and agrees with plan. VS normal at discharge. I provideddefinitive care for this patient. Cosigner will be: . [LF] ED Course User Index [LF] Diana Mercado, ELISA Medications orphenadrine (NORFLEX) injection 60 mg (60 mg Intramuscular Given 02/13/19 1141) hydrocodone-acetaminophen (NORCO) 5-325 MG tablet 1 tablet (1 tablet Oral Given 02/13/19 1140) ondansetron (ZOFRAN-ODT) disintegrating tablet 4 mg (4 mg Oral Given 02/13/19 1152) Clinical Impression Acute back pain with sciatica, right (Primary) Disposition: Discharge Current Discharge Medication List Follow-up: Hermes Ramirez III, MD [address] [facility] [address] [facility] [address] On 02/13/2019 Keep appointment as scheduled for today at 3:30 Vasu Holley, 02/13/19, 11:50. Provider Attestation: Portions of this note were transcribed by a scribe. Diana Coffey NP, personally performed the history, physical exam and medical decision making and confirmed the accuracy of the information in the transcribed note. DIANA MERCADO NP 02/13/2019 Diana Mercado NP 02/13/19 1313 Cosigned by Neil Altamirano MD at 02/20/2019 11:39 AM BOX SEALING MACHINE CATCHER SEALING MACHINE CATCHER SEALING MACHINE CATCHER * Radha Wan RN - 02/13/2019 11:09 AM CST PT ARRIVES TO TRIAGE WITH C.O SCIATIC PAIN SINCE LAST NIGHT. PT STATES SHE WAS SEEN IN [facility] BUT THE PAIN HAS GOTTEN WORSE. SEALING MACHINE CATCHER documented in this encounter Plan of Treatment Not on file documented as of this encounter Visit Diagnoses Diagnosis Acute back pain with sciatica, right- Primary documented in this encounter Administered Medications Inactive Administered Medications - up to 3 most recent administrations Medication Order MAR Action Action Date Dose Rate Site hydrocodone-acetaminophen (NORCO) 5-325 MG tablet 1 tablet 1 tablet, Oral, Once, 1 dose, On Mon02/13/19 at 1145, Maximum dose of acetaminophen is 4000 mg from all sources in 24 hours. Given 02/13/2019 11:40 AM BOX SEALING MACHINE CATCHER 1 tablet ondansetron (ZOFRAN-ODT) disintegrating tablet 4 mg 4 mg, Oral, Once, 1 dose, On Mon02/13/19 at 1200 Given 02/13/2019 11:52 AM BOX SEALING MACHINE CATCHER 4 mg orphenadrine (NORFLEX) injection 60 mg 60 mg, Intramuscular, Once, 1 dose, On Mon02/13/19 at 1145, If administering IV, give slow, approximately 5 minutes with patient in supine position. Patient should remain in this position for 5-10 minutes post injection. Given 02/13/2019 11:41 AM BOX SEALING MACHINE CATCHER 60 mg Left Dorsal Gluteal documented in this encounter Active and Recently Administered Medications Times are shown in BOX SEALING MACHINE CATCHER. Scheduled Medication Order 02/11/2019 02/12/2019 02/13/2019 hydrocodone-acetaminophen (NORCO) 5-325 MG tablet 1 tablet (COMPLETED) 1 tablet, Oral, Once, 1 dose, On Mon02/13/19 at 1145, Maximum dose of acetaminophen is 4000 mg from all sources in 24 hours. 1140 (Given - Provid er: Susie Nolan RN) ondansetron (ZOFRAN-ODT) disintegrating tablet 4 mg (COMPLETED) 4 mg, Oral, Once, 1 dose, On Mon02/13/19 at 1200 1152 (Given - Provid er: Susie Nolan RN) orphenadrine (NORFLEX) injection 60 mg (COMPLETED) 60 mg, Intramuscular, Once, 1 dose, On Mon02/13/19 at 1145, If administering IV, give slow, approximately 5 minutes with patient in supine position. Patient should remain in this position for 5-10 minutes post injection. 1141 (Given - Provid er: Susie Nolan RN) documented in this encounter Care Teams Core Drier Relationship Specialty Start Date End Date Hermes Ramirez III, MD [address] [place] [address] PCP - General FAMILY PRACTICE 06/20/17 documented as of this encounter
--- OUTSIDE RECORDS SUMMARY | 2024-03-20 11:54 | XMS_ITS | Encounter Summary ---
Author Organization [facility] Address [address] [place] [address]. [place], [place] [id number] [place] [address] Care Team Providers Care Multiple Drum Sander Helper Name Role Phone Ahsley ZUNIGA MD, Hermes Perez Primary Care Provid er Encounter Details Date Type Department Care Team (Late st Contact Info) Description 10/04/2019 Scan [facility] [address] [place] [id number] Scanned, Documents Social History Tobacco Use Types Packs/Day Years Used Date Smoking Tobacco: Every Day Cigarettes 0.5 15 Smokeless Tobacco: Never Alcohol Use Standard Drinks/Week Comments No 0 (1 standard drink = 0.6 oz pur e alcohol) Comments No Sex and Gender Information Value Date Recorded Sex Assigned at Not on file Legal Sex Female 9:15 PM CUSTODIAL SERVICES MANAGER Gender Identity Not on file Sexual [...] on filedocumented in this encounter Care Teams Multiple Drum Sander Helper Relationship Specialty Start Date End Date Hermes Ramirez III, MD [address] [facility] [address] [place] [address] PCP - General FAMILY PRACTICE 06/20/17 documented as of this encounter
--- OUTSIDE RECORDS SUMMARY | 2024-03-20 11:54 | XMS_ITS | Encounter Summary ---
Author Organization [facility] Address [address] [place] [address]. [place], [place] [id number] [place] [id number] Care Team Providers Care Engraver Steel Plate Name Role Phone Ashley ZUNIGA MD, Hermes Perez Primary Care Provid er Reason for Visit * Reason Comments Headache Encounter Details Date Type Department Care Team (Late st Contact Info) Description 02/19/2020 3:08 PM INDUSTRIAL RELATIONS REPRESENTATIVE - 02/19/2020 3:46 PM INDUSTRIAL RELATIONS REPRESENTATIVE Emergency [facility] [address] [place] [address] Merary Harris PA [address] [place] [address] Headache Discharge Disposition: Home or Self Care [...] on file Legal Sex Female 9:15 PM INDUSTRIAL RELATIONS REPRESENTATIVE Gender Identity Not on file Sexual Orientation Not on file COVID-19 Exposure Response Date Recorded In the last month, have you been in contact with someone who was confirmed or suspected to have Coronavirus / COVID-19? No / Unsure 02/19/2020 2:58 PM INDUSTRIAL RELATIONS REPRESENTATIVE documented as of this encounter Last Filed Vital Signs Vital Sign Reading Time Taken Comments Blood Pressure 157/97 02/19/2020 2:59 PM INDUSTRIAL RELATIONS REPRESENTATIVE Pulse 71 02/19/2020 2:59 PM INDUSTRIAL RELATIONS REPRESENTATIVE Temperature 35.6 ??C (96.1 ??F) 02/19/2020 2:59 PM CS T Respiratory Rate 20 02/19/2020 2:59 PM INDUSTRIAL RELATIONS REPRESENTATIVE Oxygen Saturation 100% 02/19/2020 2:59 PM INDUSTRIAL RELATIONS REPRESENTATIVE Inhaled Oxygen Concentration - - Weight 72.6 kg (160 lb) 02/19/2020 2:59 PM INDUSTRIAL RELATIONS REPRESENTATIVE Height 157.5 cm (5' 2 ) 02/19/2020 2:59 PM INDUSTRIAL RELATIONS REPRESENTATIVE Body Mass Index 29.26 02/19/2020 2:59 PM INDUSTRIAL RELATIONS REPRESENTATIVE documented in this encounter Discharge Instructions * Discharge Instructions* MAYITO Cabrales - 02/19/2020 3:21 PM INDUSTRIAL RELATIONS REPRESENTATIVE Tylenol or ibuprofen as needed. Hydrate with plenty of fluids. Follow-up with your primary care physician and neurologist as scheduled. Return if symptoms worsen or persist. STRIAL RELATIONS REPRESENTATIVE * Attachments The following attachments cannot be sent through Care Everywhere. * Home Headache Remedies ([place]) * Migraines Discharge Instructions ([place]) documented in this encounter Medications at Time [...] as of this encounter ED Notes * Ziyad Ayon MD - 02/19/2020 3:12 PM CST ED NOTE Chief Complaint Chief Complaint Patient presents with ??? Headache History of Present Illness Elsa Browne is a 39-year-old who presents with complaints of migraine headache. Patient states this is per her typical headache. She has appointment to see a neurologist for her migraines on . Patient states she was at the ENT specialist and received a test for his dizziness which brought on the migraine. Rates the pain as 9 out of 10 describing as a sharp pain. Nothing seems to make it better or worse. She does have some photophobia but denies any visual changes. Medical History ALLERGIES: Allergies Allergen Reactions ??? [...] (six) hours as needed forPain. 02/18/20 02/28/20 Keagan Goldstein MD butorphanol 10 MG/ML nasal spray by Nasal [...] and fever. HENT: Negative for congestion, rhinorrhea, sinus pain and sore throat. Respiratory: Negative for cough and shortness of breath. Cardiovascular: Negative for chest pain. Gastrointestinal: Negative for abdominal pain, nausea and vomiting. Musculoskeletal: Negative for back pain and neck pain. Skin: Negative for rash and wound. Neurological: Positive for headaches. Hematological: Negative for adenopathy. Except as noted in HPI, 10 point review of systems was completed and otherwise unremarkable or noncontributory to chief complaint. Physical Exam Filed Vitals: 02/19/20 1459 BP: (!) 157/97 Pulse: 71 Resp: 20 Temp: 96.1 ??F (35.6 ??C) TempSrc: Tympanic SpO2: 100% Weight: 72.6 kg (160 lb) Height: 5' 2 (1.575 m) Physical Exam Constitutional: She is oriented to person, place, and time. She appears well- developed and well-nourished. Eyes: Pupils are equal, round, and reactive to light. EOM are normal. Neck: Normal range of motion. Cardiovascular: Normal rate, regular rhythm and normal heart sounds. No murmur heard. Pulmonary/Chest: Effort normal and breath sounds normal. No respiratory distress. She has no wheezes. Lymphadenopathy: She has no cervical adenopathy. Neurological: She is alert and oriented to person, place, and time. Nursing note and vitals reviewed. Diagnostic Studies / Procedures ELECTROCARDIOGRAMS: No results found for this visit on 02/19/20. LABORATORY STUDIES: No results found for this visit on 02/19/20. IMAGING STUDIES No orders to display ED Course / Medical Decision Making MDM Medications HYDROmorphone (DILAUDID) injection 0.5 mg (0.5 mg Intravenous Given 02/19/20 1524) promethazine (PHENERGAN) tablet 25 mg (25 mg Oral Given 02/19/20 1524) diphenhydrAMINE (BENADRYL) tablet 25 mg (25 mg Oral Given 02/19/20 1524) Clinical Impression Other migraine without status migrainosus, intractable (Primary) Disposition: Discharge Discharge Medication List as of 02/19/2020 3:43 PM Follow-up: Hermes Ramirez III, MD [address] [place] [address] [facility] [address] Call in 2 days For re-evaluation ZIYAD AYON MD 02/19/2020 Referring Provider: No ref. provider found PCP: MD Merary RAMIREZ III, PA 02/19/20 1521 I am signing this chart for administrative reasons. I did not directly see this patient nor was I involved in the patient's care. Ziyad Ayon MD 02/19/20 1553 STRIAL RELATIONS REPRESENTATIVE STRIAL RELATIONS REPRESENTATIVE STRIAL RELATIONS REPRESENTATIVE * Shea Park RN - 02/19/2020 3:01 PM CST PRESENTS WITH C/O MIGRAINE. PT SEEN YESTERDAY FOR SAME. PT WAS SEEN AT ENT TODAY AND STATES HAD TEST FOR DIZZINESS AND MADE HER HAVE ANOTHER MIGRAINE. STRIAL RELATIONS REPRESENTATIVE documented in this encounter Plan of Treatment Not on file documented as of this encounter Visit Diagnoses Diagnosis Other migraine without status migrainosus, intractable- Primary documented in this encounter Administered Medications Inactive Administered Medications - up to 3 most recent administrations Medication Order MAR Action Action Date Dose Rate Site diphenhydrAMINE (BENADRYL) tablet 25 mg 25 mg, Oral, Once, 1 dose, On Mon02/19/20 at 1530 Given 02/19/2020 3:24 PM INDUSTRIAL RELATIONS REPRESENTATIVE 25 mg HYDROmorphone (DILAUDID) injection 0.5 mg 0.5 mg, Intravenous, Once, 1 dose, On Mon02/19/20 at 1530, Administer slowly over at least 2-3 minutes. Given 02/19/2020 3:24 PM INDUSTRIAL RELATIONS REPRESENTATIVE 0.5 mg Left Arm promethazine (PHENERGAN) tablet 25 mg 25 mg, Oral, Once, 1 dose, On Mon02/19/20 at 1530 Given 02/19/2020 3:24 PM INDUSTRIAL RELATIONS REPRESENTATIVE 25 mg documented in this encounter Active and Recently Administered Medications Times are shown in INDUSTRIAL RELATIONS REPRESENTATIVE. Scheduled Medication Order 02/17/2020 02/18/2020 02/19/2020 diphenhydrAMINE (BENADRYL) tablet 25 mg (COMPLETED) 25 mg, Oral, Once, 1 dose, On Mon02/19/20 at 1530 1524 (Given - Provid er: Luz Maria Yi LPN) HYDROmorphone (DILAUDID) injection 0.5 mg (COMPLETED) 0.5 mg, Intravenous, Once, 1 dose, On Mon02/19/20 at 1530, Administer slowly over at least 2-3 minutes. 1524 (Given - Provid er: Luz Maria Yi LPN) promethazine (PHENERGAN) tablet 25 mg (COMPLETED) 25 mg, Oral, Once, 1 dose, On Mon02/19/20 at 1530 1524 (Given - Provid er: Luz Maria Yi LPN) documented in this encounter Care Teams Engraver Steel Plate Relationship Specialty Start Date End Date Hermes Ramirez III, MD [address] [place] [address] PCP - General FAMILY PRACTICE 06/20/17 documented as of this encounter
--- OUTSIDE RECORDS SUMMARY | 2024-03-20 11:54 | XMS_ITS | Encounter Summary ---
Author Organization [facility] Address [address] [place] [address]. [place], [place] [address] [place] [address] Care Team Providers Care Chief Of Police Name Role Phone Ashley ZUNIGA MD, Hermes Perez Primary Care Provid er Encounter Details Date Type Department Care Team (Latest Contact Info) Description 02/14/2020 Travel Social History Tobacco Use Types Packs/Day Years Used Date Smoking Tobacco: Every Day Cigarettes 0.5 15 Smokeless Tobacco: Never Alcohol Use Standard Drinks/Week Comments No 0 (1 standard drink = 0.6 oz pur e alcohol) Comments No Sex and Gender Information Value Date Recorded Sex Assigned at Not on file Legal Sex Female 9:15 PM BOILERS AND PRESSURE VESSELS INSPECTOR Gender Identity Not on file Sexual Orientation Not on file COVID-19 Exposure Response Date Recorded In the last month, have you been in contact with someone who was confirmed or suspected to have Coronavirus / COVID-19? No / Unsure 02/14/2020 9:24 PM BOILERS AND PRESSURE VESSELS INSPECTOR documented as of this encounter Plan of Treatment Not on file documented as of this encounter Visit Diagnoses Not on filedocumented in this encounter Care Teams Chief Of Police Relationship Specialty Start Date End Date Hermes Ramirez III, MD [address] [facility] [address] [place] [address] PCP - General FAMILY PRACTICE 06/20/17 documented as of this encounter
--- OUTSIDE RECORDS SUMMARY | 2024-03-20 11:55 | XMS_ITS | Encounter Summary ---
Author Organization [facility] Address [address] [place] [address]. [place], [place] [address] [place] [address] Care Team Providers Care Television Schedule Coordinator Name Role Phone Ashley ZUNIGA MD, Hermes Perez Primary Care Provid er Encounter Details Date Type Department Care Team (Latest Contact Info) Description 02/14/2018 Abstract [facility] , Lazara Lange MD Social History Tobacco Use Types Packs/Day Years Used Date Smoking Tobacco: Every Day Cigarettes 0.5 15 Smokeless Tobacco: Never Alcohol Use Standard Drinks/Week Comments No 0 (1 standard drink = 0.6 oz pur e alcohol) Comments No Sex and Gender Information Value Date Recorded Sex Assigned at Not on file Legal Sex Female 9:15 PM BUSINESS PLANNER Gender Identity Not on file Sexual Orientation Not on file documented as of this encounter Last Filed Vital Signs Vital Sign Reading Time Taken Comments Blood Pressure 148/82 02/14/2018 3:19 PM BUSINESS PLANNER Pulse - - Temperature - - Respiratory Rate - - Oxygen Saturation - - Inhaled Oxygen Concentration - - Weight 77.1 kg (170 lb) 02/14/2018 3:19 PM BUSINESS PLANNER Height 157.5 cm (5' 2 ) 02/14/2018 3:19 PM BUSINESS PLANNER Body Mass Index 31.09 02/14/2018 3:19 PM BUSINESS PLANNER documented in this encounter Progress Notes * ROSE MARIE Gongora - 02/14/2018 12:00 AM CST ACTIVE PROBLEMS ? Abnormal Pap Smear - Lgsil ? Cervical Dysplasia ? Condyloma Acuminatum ? History of Vulvar Dysplasia ? Liver Transplant Recipient CHIEF COMPLAINT The Chief Complaint is: Pt here for repap. HISTORY OF PRESENT ILLNESS Misha Jackson is a 37 year old female. The patient presents for repeat pap smear due to history of cervical dysplasia. ?? Feeling fine. ?? No pelvic pain. ?? No female genital symptoms ?? Normal menses ?? No reproductive system complaints ?? No vaginal discharge CURRENT MEDICATION ? Prograf 1MG Oral Capsule, conventional 2 twice a day 0 days, 0 refills ? Sodium Bicarbonate 650MG Oral Tablet 2 three times a day 0 days, 0 refills PAST MEDICAL/SURGICAL HISTORY Reported: No recent change in medical history and Last pap smear date 05/19/2017 result: abnormal ASCUS with HPV. Surgical / Procedural: Surgical / procedural history Liver Transplant 1992 double hernia 1986 [place] procedure 1982. Prior surgery Left breast fibroadenoma. Pt has a history of VIN3 and IFEANYI 3. Has seen in [place] in the past. Recent Hospitalizatiion for Pancreatitis 09/2016. : 3 and para 2. Liver transplant 1992. Procedural: ? Thermal endometrial ablation Surgical: ? Tubal ligation 05/22/2012 SOCIAL HISTORY Social history unchanged. Behavioral: Cigarette smoking and smoking status: Current everyday smoker. Alcohol: No consumption of alcohol. Drug Use: Not using drugs. Work: Occupation was unknown. Marital: Currently . Sexual: Sexually active. Pt is and has 2 children. ALLERGIES ? Aspirin ? Rocael-Tab (Erythromycin) ? Tetracaine HCl ? Toradol (Ketorolac) ? Tylenol #3 (Acetaminophen + Codeine) Reaction: Skin Rashes, Hives FAMILY HISTORY Family history unchanged PHYSICAL FINDINGS ? Vitals taken 02/14/2018 03:19 pm BP-Sitting 148/82 mmHg Respiration Rate 16 per min Height 62 in Weight 170 lbs Body Mass Index 31.1 kg/m2 Body Surface Area 1.78 m2 General Appearance: ?? Well developed. ?? Well nourished. ?? In no acute distress. Lungs: ?? Clear to auscultation. Cardiovascular: Heart Rate And Rhythm: ?? Normal. Murmurs: ?? No murmurs were heard. Abdomen: Palpation: ?? Abdominal non-tender. ?? No mass was palpated in the abdomen. Liver: ?? Not enlarged. Spleen: ?? Not enlarged. Genitalia: External: ?? Genitalia showed no abnormalities. Pelvic: Vagina: ?? No vaginal discharge was observed. Cervix: ?? Showed no lesion; pap smear obtained. ?? Did not demonstrate pain elicited by motion. ASSESSMENT ? Cervical dysplasia ASCUS- HPV+ in May- Pap wnl Follow-up pap. DISCUSSED Repap today May ASCUS HPV+ October Pap wnl. PLAN ? Encounter for screening for malignant neoplasm of cervix Lab: PAP, THINPREP W/HPV when ASCUS or above Patient will return in 4 months for another repeat pap smear, sooner with any problems. Importance of follow-up was conveyed to the patient. CARE TEAM Hermes Ramirez Primary Care HEALTH REMINDERS ? Assess Alcohol Use satisfied 02/14/2018. ? Assess BMI satisfied 02/14/2018. ? Assess Tobacco Use satisfied 02/14/2018. ? Blood Pressure Measurement satisfied 02/14/2018. Mary Lamar Electronically signed by: Mary Lamar Date: 02/16/2018 11:47 documented in this encounter Plan of Treatment Not on file documented as of this encounter Procedures Procedure Name Priority Date/Time Associated Diagnosis Comments THINPREP IMAGING SYSTEM PAP Routine 02/14/2018 3:45 PM BUSINESS PLANNER documented in this encounter Results * THINPREP IMAGING SYSTEM PAP (02/14/2018 3:45 PM BUSINESS PLANNER) THIN PREP PAP [facility] CONVERSION Comment: Patient Name: MISHA JACKSON Specimen #: [id number] ?? Procedure Date: 02/14/2018 /Age: 7 1980 (Age: 37) Gender: ??F Accessioned: 02/15/2018 Address: [address] ??[id number] Reported: 02/20/2018 ?? Encounter: [id number] Location: [facility] [employer] [facility] ?? Physician(s): MARIA ISABEL JENNINGS MD ?? : ? CYTOPATHOLOGY - GYNECOLOGIC REPORT Diagnosis: TEST NAME: ??THINPREP PAP WITH TERMITE CONTROL REPRESENTATIVE,REFLEX HPV-ASCUS AND ABOVE INTERPRETATION/RESULT: NEGATIVE FOR INTRAEPITHELIAL LESION OR MALIGNANCY. SHIFT IN KER[place] SUGGESTIVE OF BACTERIAL VAGINOSIS IS PRESENT. THE ABSENCE OF AN ENDOCERVICAL COMPONENT WAS CONFIRMED BY AN ADDITIONAL SCREENER. STATEMENT OF ADEQUACY: SATISFACTORY FOR EVALUATION; ENDOCERVICAL/TRANSFORMATION ZONE COMPONENT ABSENT. ?? TMD ELIDA MILLER(ASCP) ls/02/20/2018 Report Electronically Signed Specimen: THINPREP PAP WITH TERMITE CONTROL REPRESENTATIVE,REFLEX HPV-ASCUS AND ABOVE Clinical Diagnosis and History Date of Last Menstrual Period: ? . Specimen Source: Cervical/Endocervical ? PAP SMEARS ARE SCREENING TESTS SUBJECT TO BOTH FALSE NEGATIVE AND FALSE POSITIVE RESULTS EVIDENCED BY DATA PUBLISHED IN THE MEDICAL LITERATURE. YOUR PATIENT'S RESULT SHOULD BE INTERPRETED IN THIS CONTEXT, TOGETHER WITH THE PATIENT'S HISTORY AND CLINICAL FINDINGS. 02/14/2018 3:45 PM BUSINESS PLANNER Narrative [facility] CONVERSION - 02/14/2018 3:45 PM BUSINESS PLANNER [Task Forwarded to [facility]] notify and treat, metrogel RTO 4 wks. for RADHA us Maria Isabel Jennings MD PATHOLOGY/CYTOLOGY ORDERAB LES Final Result [facility] CONVERSION documented in this encounter Visit Diagnoses Not on filedocumented in this encounter Care Teams Television Schedule Coordinator Relationship Specialty Start Date End Date Hermes Ramirez III, MD [address] [facility] [address] [place] [address] PCP - General FAMILY PRACTICE 06/20/17 documented as of this encounter
--- OUTSIDE RECORDS SUMMARY | 2024-03-20 11:55 | XMS_ITS | Encounter Summary ---
Author Organization [facility] Address [address] [place] [address]. [place], [place] [id number] [place] [address] Care Team Providers Care Discharge Planner Name Role Phone Ashley ZUNIGA MD, Hermes Perez Primary Care Provid er Reason for Visit * Reason Comments Headache Encounter Details Date Type Department Care Team (Late st Contact Info) Description 08/28/2018 6:24 PM CDT - 08/28/2018 7:14 PM CDT Emergency [place] [address] [facility] [address] [place], [facility] Martha Rolle APNP [address] [place] [address] Headache Discharge Disposition: Home or Self Care [...] on file 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 Gender Identity Not on file Sexual Orientation Not on file documented as of this encounter Last Filed Vital Signs Vital Sign Reading Time Taken Comments Blood Pressure 128/84 08/28/2018 7:08 PM CDT Pulse 96 08/28/2018 7:08 PM CDT Temperature 37.4 ??C (99.4 ??F) 08/28/2018 6:25 PM CD T Respiratory Rate 16 08/28/2018 7:08 PM CDT Oxygen Saturation 99% 08/28/2018 6:25 PM CDT Inhaled Oxygen Concentration - - Weight 68 kg (150 lb) 08/28/2018 6:25 PM CDT Height 157.5 cm (5' 2 ) 08/28/2018 6:25 PM CDT Body Mass Index 27.44 08/28/2018 6:25 PM CDT documented in this encounter Discharge Instructions * Discharge Instructions* ROSE MARIE Shelton - 08/28/2018 6:58 PM CDT Home and rest in a quiet dark room. Take [id number] Tylenol and ibuprofen as directed. Call primary care in the morning give a condition update and arrange a follow-up appointment in 2 to 3 days. Return to the emergency room if symptoms worsen or change. * Attachments The following attachments cannot be sent through Care Everywhere. * Headache Discharge Instructions, Adult (Hungarian) documented in this encounter Medications at Time of Discharge butorphanol 10 MG/ML nasal spray by Nasal route every 4 (four) hours as needed. 1 clotrimazole-betame thasone cream Use bid to external ear 05/09/2018 9 codeine sulfate 15 MG Tab tablet Take 15 mg by mouth every 6 (six) hours as needed for Pain. 20 tablet 01/16/2018 9 duloxetine (CYMBALTA) 20 MG capsule Take 2 capsules by mouth daily. 9 DULoxetine HCl 40 MG CAPSULE ENTERIC COATED PARTICLES Take 1 capsule by mouth daily. 0 01/17/2018 9 escitalopram 10 MG tablet Take 10 mg by mouth daily. 04/16/2018 9 fluconazole 150 MG tablet TAKE 1 TAB A SINGLE DOSE 0 10/06/2017 9 HYDROmorphone 2 MG tablet Take 2 mg by mouth. 01/10/2018 9 hydrOXYzine 25 MG capsule TAKE 1 CAP BY MOUTH 4 TIMES DAILY NEEDED (MIGRAINES). 0 03/06/2018 9 IRON OR Take 1 tablet by mouth. 9 lorazepam (ATIVAN) 0.5 MG tablet Take 1 tablet by mouth. 06/21/2012 9 metoclopramide 10 MG tablet 02/13/2018 9 metroNIDAZOLE 0.75 % vaginal gel INSTILL 1 APPLICATOR FULL VAGINALLY AT BEDTIME FOR 5 NIGHTS 02/26/2018 9 mirtazapine 15 MG disintegrating tablet 08/08/2018 9 mupirocin 2 % ointment APPLY TO AREA BEHIND EAR TWICE A DAY 1 05/09/2018 9 Norethindrone, Contraceptive, 0.35 MG tablet Take 0.35 mg by mouth. 06/25/2012 9 predniSONE 2.5 mg tablet Take 2.5 mg by mouth. 06/25/2012 9 Vit-Fe Fumarate-FA (PNV PLUS MULTIVITAMIN) 27-1 MG Tab Take 1 tablet by mouth daily. 9 promethazine 25 MG tablet Take 25 mg by mouth. 9 sodium bicarbonate 650 MG tablet Take 1,300 mg by mouth 3 (three) times daily. 9 SUMAtriptan 50 MG tablet 02/13/2018 9 tacrolimus (PROGRAF) 1 MG capsule Take 1 tablet by mouth 2 (two) times daily. 02/06/2017 3 tacrolimus 1 MG capsule Take 2 mg by mouth 2 (two) times daily. 9 tretinoin 0.05 % cream APPLY A PEA SIZED AMOUNT TO ENTIRE FACE NIGHTLY 12/08/2017 9 venlafaxine XR 37.5 MG 24 hr capsule 02/13/2018 11/03/19 1 9 documented as of this encounter ED Notes * Ziyad Hu MD - 08/28/2018 6:31 PM CDT Chief Complaint Chief Complaint Patient presents with ??? Headache History of Present Illness 37-year-old female presents the emergency room with migraine that started 2 days ago. She reports that she took ibuprofen today at relief. reports she has a history of migraines this feels like a typical migraine. She denies aura. She reports pain on the right side frontal. She reports light sensitivity and nausea. She denies vomiting or changes in vision. sHe denies abdominal pain. She denies lightheadedness or dizziness. Reports that she is taking Nubain in the past without difficulty. Is notallergic to it. Medical History ALLERGIES: Allergies Allergen Reactions ??? Aspirin Other (see comment) C ??? Erythromycin Unknown ??? Morphine And Related Unknown ??? Toradol [Ketorolac Tromethamine] Other (see comment) KIDNEY MEDICATIONS: Prior to Admission medications Medication Sig Start Date End Date Taking? Authorizing Provider butorphanol 10 MG/ML nasal spray Doc Abstract codeine sulfate 15 MG Tab tablet Take 15 mg by mouth every 6 (six) hours as needed for Pain. 01/16/18 Su Mays MD duloxetine (CYMBALTA) 20 MG capsule Take 2 capsules by mouth daily. Doc Abstract DULoxetine HCl 40 MG CAPSULE ENTERIC COATED PARTICLES Take 1 capsule by mouth daily. 01/17/18 Doc Abstract fluconazole 150 MG tablet TAKE 1 TAB A SINGLE DOSE 10/06/17 Doc Abstract HYDROmorphone 2 MG tablet Take 2 mg by mouth. 01/10/18 Doc Abstract IRON OR Take 1 tablet by mouth. Doc Abstract lorazepam (ATIVAN) 0.5 MG tablet Take 1 tablet by mouth. 06/21/12 Doc Abstract Norethindrone, Contraceptive, 0.35 MG tablet Take 0.35 mg by mouth. 06/25/12 Doc Abstract predniSONE 2.5 mg tablet Take 2.5 mg by mouth. 06/25/12 Doc Abstract Vit-Fe Fumarate-FA (PNV PLUS MULTIVITAMIN) 27-1 MG Tab Take 1 tablet by mouth daily. Doc Abstract promethazine 25 MG tablet Take 25 mg by mouth. Doc Abstract sodium bicarbonate 650 MG tablet Take 1,300 mg by mouth 3 (three) times daily. Doc Abstract tacrolimus 1 MG capsule Take 2 mg by mouth 2 (two) times daily. Doc Abstract tretinoin 0.05 % cream APPLY A PEA SIZED AMOUNT TO ENTIRE FACE NIGHTLY 12/08/17 Doc Abstract PAST MEDICAL HISTORY: Past Medical [...] Eyes: Negative. Respiratory: Negative. Cardiovascular: Negative. Gastrointestinal: Positive for nausea. Musculoskeletal: Negative. Skin: Negative. Neurological: Positive for headaches. Light sensitivity Physical Exam Filed Vitals: 08/28/18 1825 BP: (!) 161/99 Pulse: 114 Resp: 18 Temp: 99.4 ??F (37.4 ??C) TempSrc: Oral SpO2: 99% Weight: 68 kg (150 lb) Height: 5' 2 (1.575 m) Physical Exam Constitutional: She is oriented to person, place, and time. She appears well- developed and well-nourished. She is sitting on exam table with half the lights on in the room. She is able to walk around room out difficulty. HENT: Head: Normocephalic. Eyes: Conjunctivae and EOM are normal. Pupils are equal, round, and reactive to light. Neck: Normal range of motion. Neck supple. Cardiovascular: Normal rate and regular rhythm. Pulmonary/Chest: Effort normal and breath sounds normal. No respiratory distress. Abdominal: Soft. Bowel sounds are normal. She exhibits no distension. There is no tenderness. Musculoskeletal: Normal range of motion. Neurological: She is alert and oriented to person, place, and time. She has normal strength. GCS eye subscore is 4. GCS verbal subscore is 5. GCS motor subscore is 6. Skin: Skin is warm and dry. Diagnostic Studies / Procedures ELECTROCARDIOGRAMS: No results found for this visit on 08/28/18. LABORATORY STUDIES: No results found for this visit on 08/28/18. IMAGING STUDIES No orders to display ED Course / Medical Decision Making Clinical Impression Migraine without aura (Primary) Disposition: Discharge ROSE MARIE Shelton 08/28/18 1904 Ziyad Hu MD 08/29/18 0708 * Sulma Ramirez RN - 08/28/2018 6:24 PM CDT PT AMBULATORY TO ED C/O RIGHT SIDED MIGRAINE HEADACHE WITH NAUSEA X2 DAYS. PT STATES HX OF MIGRAINE, BUT UNDER CONTROL FOR SOME TIME. PT DENIES ANY VISUAL DISTURBANCE, BUT IS HAVING LIGHT SENSITIVITY. A/O X4, PWD, NO SIGNS OF DISTRESS * Eric Cassidy NP - 08/28/2018 6:24 PM CDT 37 year old female presents to the ER complaining of headache with nausea. Eric Cassidy NP 08/28/18 1824 documented in this encounter Plan of Treatment Not on file documented as of this encounter Visit Diagnoses Diagnosis Migraine without aura- Primary Migraine without aura, without mention of intractable migraine without mention of status migrainosus documented in this encounter Administered Medications Inactive Administered Medications - up to 3 most recent administrations Medication Order MAR Action Action Date Dose Rate Site diphenhydrAMINE (BENADRYL) injection 25 mg 25 mg, Intramuscular, Once, 1 dose, On Mon08/28/18 at 1915, For IV administration, give no faster than 25 mg/min. Given 08/28/2018 7:07 PM CDT 25 mg Right Deltoid nalbuphine (NUBAIN) injection 10 mg 10 mg, Intramuscular, Once, 1 dose, On Mon08/28/18 at 1845 Given 08/28/2018 6:54 PM CDT 10 mg Left Upper Outer Quadrant promethazine (PHENERGAN) injection 12.5 mg 12.5 mg, Intramuscular, Once, 1 dose, On Mon08/28/18 at 1845, For IV administration must be used with CAUTION. Dilute dose to 10 ml with NS and inject over 10 minutes through a running IV line. Given 08/28/2018 6:55 PM CDT 12.5 mg Left Upper Outer Quadrant documented in this encounter Active and Recently Administered Medications Times are shown in CDT. Scheduled Medication Order 08/26/2018 08/27/2018 08/28/2018 diphenhydrAMINE (BENADRYL) injection 25 mg (COMPLETED) 25 mg, Intramuscular, Once, 1 dose, On Mon08/28/18 at 1915, For IV administration, give no faster than 25 mg/min. 1907 (Given - Provid er: Celsa Lerma LPN) nalbuphine (NUBAIN) injection 10 mg (COMPLETED) 10 mg, Intramuscular, Once, 1 dose, On Mon08/28/18 at 1845 1854 (Given - Provid er: Celsa Lerma LPN) promethazine (PHENERGAN) injection 12.5 mg (COMPLETED) 12.5 mg, Intramuscular, Once, 1 dose, On Mon08/28/18 at 1845, For IV administration must be used with CAUTION. Dilute dose to 10 ml with NS and inject over 10 minutes through a running IV line. 185 (Given - Provid er: Celsa Lerma LPN) documented in this encounter Care Teams Discharge Planner Relationship Specialty Start Date End Date Hermes Ramirez III, MD [address] [place] [address] PCP - General FAMILY PRACTICE 06/20/17 documented as of this encounter
--- OUTSIDE RECORDS SUMMARY | 2024-03-20 11:55 | XMS_ITS | Encounter Summary ---
Author Organization [facility] Address [address] [place] [address]. [place] [address] [place] [address] Care Team Providers Care Energy Systems Engineer Name Role Phone Ashley ZUNIGA MD, Hermes Perez Primary Care Provid er Encounter Details Date Type Department Care Team (Late st Contact Info) Description 05/23/2018 Abstract [facility] [address] [place] [address] Ziyad Hu MD [address] [place] [id number] Social History Tobacco Use Types Packs/Day Years Used Date Smoking Tobacco: Every Day Cigarettes 0.5 15 Smokeless Tobacco: Never Alcohol Use Standard Drinks/Week Comments No 0 (1 standard drink = 0.6 oz pur e alcohol) Comments No Sex and Gender Information Value Date Recorded Sex Assigned at Not on file 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
--- OUTSIDE RECORDS SUMMARY | 2024-03-20 11:55 | XMS_ITS | Encounter Summary ---
Author Organization [facility] Address [address] [place] [address]. [place] [address] [place] [address] Care Team Providers Care Rug Layer Name Role Phone Ashley ZUNIGA MD, Hermes Perez Primary Care Provid er Reason for Visit * Reason Comments Vaginal Pain LASER SURGERY FOR HP V LAST MONDAY STATES HAVING A GREEN DISCHARGE AND THE AREA IS VERY PAINFUL Encounter Details Date Type Department Care Team (Late st Contact Info) Description 01/16/2018 2:23 PM CDT - 01/16/2018 3:18 PM CDT Emergency [facility] [address] [facility] [place] [address] Su Mays MD [address] [place] [address] Vaginal Pain (LASER SURGERY FOR HPV LAST MONDAY STATES HAVING A GREEN DISCHARGE AND THE AREA IS VERY PAINFUL ) Discharge Disposition: Home or Self Care (Routine Discharge) Social History Tobacco Use Types Packs/Day Years Used Date Smoking Tobacco: Every Day Cigarettes 0.5 15 Smokeless Tobacco: Never Alcohol Use Standard Drinks/Week Comments No 0 (1 standard drink = 0.6 oz pur e alcohol) Comments No Sex and Gender Information Value Date Recorded Sex Assigned at Not on file 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 Gender Identity Not on file Sexual Orientation Not on file documented as of this encounter Last Filed Vital Signs Vital Sign Reading Time Taken Comments Blood Pressure 144/88 01/16/2018 1:21 PM CDT Pulse 113 01/16/2018 1:21 PM CDT Temperature 37.1 ??C (98.8 ??F) 01/16/2018 1:21 PM CD T Respiratory Rate 20 01/16/2018 1:21 PM CDT Oxygen Saturation 99% 01/16/2018 1:21 PM CDT Inhaled Oxygen Concentration - - Weight 72.6 kg (160 lb) 01/16/2018 1:21 PM CDT Height 157.5 cm (5' 2 ) 01/16/2018 1:21 PM CDT Body Mass Index 29.26 01/16/2018 1:21 PM CDT documented in this encounter Medications at Time of Discharge codeine sulfate 15 MG Tab tablet Take 15 mg by mouth every 6 (six) hours as needed for Pain. 20 tablet 01/16/2018 10/29/2018 fluconazole 150 MG tablet TAKE 1 TAB A SINGLE DOSE 0 10/06/2017 11/02/2018 HYDROmorphone 2 MG tablet Take 2 mg by mouth. 01/10/2018 11/02/2018 lorazepam (ATIVAN) 0.5 MG tablet Take 1 tablet by mouth. 06/21/2012 11/02/2018 Norethindrone, Contraceptive, 0.35 MG tablet Take 0.35 mg by mouth. 06/25/2012 11/02/2018 predniSONE 2.5 mg tablet Take 2.5 mg by mouth. 06/25/2012 11/02/2018 sodium bicarbonate 650 MG tablet Take 1,300 mg by mouth 3 (three) times daily. 10/21/2018 tacrolimus (PROGRAF) 1 MG capsule Take 1 tablet by mouth 2 (two) times daily. 02/06/2017 07/27/2022 tacrolimus 1 MG capsule Take 2 mg by mouth 2 (two) times daily. 02/12/2019 tretinoin 0.05 % cream APPLY A PEA SIZED AMOUNT TO ENTIRE FACE NIGHTLY 12/08/2017 11/02/2018 documented as of this encounter ED Notes * Leonila Del Rosario - 01/16/2018 3:02 PM CDT This marketing copywriter witnessed vaginal exam with Dr. Astorga * Su Mays MD - 01/16/2018 2:24 PM CDT I, zak Lentz, am personally taking down the notes in the presence of Su Mays MD.?Take no action on this note until reviewed and authenticated??by the physician. History Chief Complaint Patient presents with ??? Vaginal Pain LASER SURGERY FOR HPV LAST MONDAY STATES HAVING A GREEN DISCHARGE AND THE AREA IS VERY PAINFUL Elsa Browne is a 37-year-old female who presented to the ED with a wound. 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 She had a laser procedure to remove them 6 days ago. Patient reports today she has had some green discharge from a wound. Patient reports she was given dilaudid for pain but does not tolerate the medication. Patient received a liver transplant. She has a history of anemia, biliary atresia, chronic kidney disease, and thrombocytopenia. Past Medical History: Diagnosis Date ??? Anemia ??? Biliary atresia congenital ??? Chronic kidney disease ??? Thrombocytopenia (HCC) Past Surgical History: Procedure Laterality Date ??? SECTION ??? INGUINAL HERNIA Bilateral age 5 ??? LIVER TRANSPLANTATION Family History Problem Relation Age of Onset ??? Diabetes Neg Hx Social History Tobacco Use ??? Smoking status: Current Every Day Smoker Packs/day: 0.50 Years: 15.00 Pack years: 7.50 ??? Smokeless tobacco: Never Used Substance Use Topics ??? Alcohol use: No ??? Drug use: No Allergies Allergen Reactions ??? Aspirin Other (see comment) C ??? Erythromycin Unknown ??? Toradol [Ketorolac Tromethamine] Other (see comment) KIDNEY No current facility-administered medications for this encounter. Current Outpatient Medications: ??? codeine sulfate 15 MG Tab tablet, Take 15 mg by mouth every 6 (six) hours as needed for Pain., Disp: 20 tablet, Rfl: 0 ??? sodium bicarbonate 650 MG tablet, Take 1,300 mg by mouth 3 (three) times daily., Disp: , Rfl: ??? tacrolimus 1 MG capsule, Take 2 mg by mouth 2 (two) times daily., Disp: , Rfl: Review of Systems Constitutional: Negative. HENT: Negative. Eyes: Negative. Respiratory: Negative for shortness of breath. Cardiovascular: Negative for chest pain. Gastrointestinal: Negative for abdominal pain. Endocrine: Negative. Genitourinary: Negative. Musculoskeletal: Negative for arthralgias. Skin: Positive for wound (with discharge). Neurological: Negative. Psychiatric/Behavioral: Negative. Physical Exam Filed Vitals: 01/16/18 1321 BP: 144/88 Pulse: 113 Resp: 20 Temp: 98.8 ??F (37.1 ??C) TempSrc: Oral SpO2: 99% Weight: 72.6 kg (160 lb) Height: 5' 2 (1.575 m) Physical Exam Constitutional: She is oriented to person, place, and time. She appears well- developed and well-nourished. HENT: Head: Normocephalic and atraumatic. Eyes: Conjunctivae are normal. Neck: Neck supple. Cardiovascular: Regular rhythm. Tachycardia present. Pulmonary/Chest: Effort normal and breath sounds normal. Abdominal: Soft. There is no tenderness. Genitourinary: Genitourinary Comments: Chaperoned by Leonila Del Rosario PCT Musculoskeletal: She exhibits no edema or deformity. Neurological: She is alert and oriented to person, place, and time. Skin: Well-healing sites, no discharge, no erythema Psychiatric: She has a normal mood and affect. Her behavior is normal. Nursing note and vitals reviewed. Labs Reviewed - No data to display No orders to display ED Course Procedures Medications fentaNYL (SUBLIMAZE) injection 50 mcg (50 mcg Intramuscular Given 01/16/18 1509) ondansetron (ZOFRAN-ODT) disintegrating tablet 4 mg (4 mg Oral Given 01/16/18 1508) [facility] Discharge Medication List as of 01/16/2018 2:58 PM START taking these medications Details codeine sulfate 15 MG Tab tablet Take 15 mg by mouth every 6 (six) hours as needed for Pain., Starting Mon01/16/2018, Print Class: Print Pharmacy: [facility]/pharmacy #[id number] - [place], [place] - [address] [place] [address] (Ph #: [phone]) Discharge Clinical Impression Pain of female genitalia (Primary) Nichelle Guzman, 01/16/18, 14:52. SU MAYS MD I, Dr.Hamid Jaciel Mays, personally performed the services described in this documentation. All medical record entries made by the scribe were at my direction and in my presence. I have reviewed the chart and discharge instructions and agree that the record reflects my personal performance and is accurate and complete. Electronically Signed: Dr. Su Mays MD. 01/17/18. 8:44 AM Su Mays MD 01/17/18 0844 * Bria Lopez RN - 01/16/2018 1:23 PM CDT PT PRESENTS WITH VAGINAL DISCHARGE AND PAIN STATES HAD SURGERY FOR HER HPV LAST Monday AND THE PAIN IS GETTING MUCH WORSE documented in this encounter Plan of Treatment Not on file documented as of this encounter Visit Diagnoses Diagnosis Pain of female genitalia- Primary Unspecified symptom associated with female genital organs documented in this encounter Administered Medications Inactive Administered Medications - up to 3 most recent administrations Medication Order MAR Action Action Date Dose Rate Site fentaNYL (SUBLIMAZE) injection 50 mcg 50 mcg, Intramuscular, Once, 1 dose, On Mon01/16/18 at 1500, If intravenous (IV) route has been ordered, give over 1-2 minutes. Given 01/16/2018 3:09 PM CDT 50 mcg Left Ventrogluteal ondansetron (ZOFRAN-ODT) disintegrating tablet 4 mg 4 mg, Oral, Once, 1 dose, On Mon01/16/18 at 1500 Given 01/16/2018 3:08 PM CDT 4 mg documented in this encounter Active and Recently Administered Medications Times are shown in CDT. Scheduled Medication Order 01/14/2018 01/15/2018 01/16/2018 fentaNYL (SUBLIMAZE) injection 50 mcg (COMPLETED) 50 mcg, Intramuscular, Once, 1 dose, On Mon01/16/18 at 1500, If intravenous (IV) route has been ordered, give over 1-2 minutes. 1509 (Given - Provid er: Sulma Ramirez, ANSON) ondansetron (ZOFRAN-ODT) disintegrating tablet 4 mg (COMPLETED) 4 mg, Oral, Once, 1 dose, On Mon01/16/18 at 1500 1508 (Given - Provid er: Sulma Ramirez RN) documented in this encounter Care Teams Rug Layer Relationship Specialty Start Date End Date Hermes Ramirez III, MD [address] [facility] [address] [place] [address] PCP - General FAMILY PRACTICE 06/20/17 documented as of this encounter
--- OUTSIDE RECORDS SUMMARY | 2024-03-20 11:55 | XMS_ITS | Encounter Summary ---
Author Organization [facility] Address [address] [place] [address]. [place], [place] [id number] [place] [address] Care Team Providers Care Route Sales Specialist Name Role Phone Ashley ZUNIGA MD, Hermes Perez Primary Care Provid er Encounter Details Date Type Department Care Team (Latest Contact Info) Description 04/24/2018 Abstract [facility] , Lazara Lange MD Social History Tobacco Use Types Packs/Day Years Used Date Smoking Tobacco: Every Day Cigarettes 0.5 15 Smokeless Tobacco: Never Alcohol Use Standard Drinks/Week Comments No 0 (1 standard drink = 0.6 oz pur e alcohol) Comments No Sex and Gender Information Value Date Recorded Sex Assigned at Not on file 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
--- OUTSIDE RECORDS SUMMARY | 2024-03-20 11:55 | XMS_ITS | Encounter Summary ---
Author Organization [facility] Address [address] [place] [address]. [place], [place] [id number] [place] [address] Care Team Providers Care Community Health Director Name Role Phone Ashley ZUNIGA MD, Hermes Perez Primary Care Provid er Encounter Details Date Type Department Care Team (Late st Contact Info) Description 08/22/2018 Abstract [facility] [address] [place] [address] Social History Tobacco Use Types Packs/Day Years Used Date Smoking Tobacco: Every Day Cigarettes 0.5 15 Smokeless Tobacco: Never Alcohol Use Standard Drinks/Week Comments No 0 (1 standard drink = 0.6 oz pur e alcohol) Comments No Sex and Gender Information Value Date Recorded Sex Assigned at Not on file Legal Sex Female 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 Gender Identity Not on file Sexual Orientation Not on file documented as of this encounter Plan of Treatment Not on file documented as of this encounter Visit Diagnoses Not on filedocumented in this encounter Additional Health Concerns Infection Onset Date Last Indicated Resolved Time COVID-19 Rule Out 03/30/2020 03/30/2020 03/30/2020 9:29 PM LEAN MANUFACTURING ENGINEER COVID-19 Rule Out 03/30/2020 03/30/2020 03/31/2020 12:28 PM LEAN MANUFACTURING ENGINEER COVID-19 Rule Out 02/16/2024 02/16/2024 02/16/2024 9:16 PM LEAN MANUFACTURING ENGINEER Rhinovirus 02/16/2024 02/16/2024 02/26/2024 12:3 2 AM LEAN MANUFACTURING ENGINEER documented as of this encounter Care Teams Community Health Director Relationship Specialty Start Date End Date Hermes Ramirez III, MD [address] [facility] [address] [place] [address] PCP - General FAMILY PRACTICE 06/20/17 documented as of this encounter
--- OUTSIDE RECORDS SUMMARY | 2024-03-20 11:55 | XMS_ITS | Encounter Summary ---
Author Organization [facility] Address [address] [place] [address]. [place] [address] [place] [address] Care Team Providers Care Purchasing Buyer Name Role Phone Ashley ZUNIGA MD, Hermes Perez Primary Care Provid er Encounter Details Date Type Department Care Team (Latest Contact Info) Description 05/17/2018 Abstract [facility] Murphy Mathew MD [address] [place] [address] Social History Tobacco Use Types Packs/Day Years Used Date Smoking Tobacco: Every Day Cigarettes 0.5 15 Smokeless Tobacco: Never Alcohol Use Standard Drinks/Week Comments No 0 (1 standard drink = 0.6 oz pur e alcohol) Comments No Sex and Gender Information Value Date Recorded Sex Assigned at Not on file Legal Sex Female 9:15 PM PODIATRIC TECHNICIAN Gender Identity Not on file Sexual Orientation Not on file documented as of this encounter Last Filed Vital Signs Vital Sign Reading Time Taken Comments Blood Pressure 141/92 05/17/2018 3:17 PM PODIATRIC TECHNICIAN Pulse 93 05/17/2018 3:17 PM PODIATRIC TECHNICIAN Temperature - - Respiratory Rate - - Oxygen Saturation - - Inhaled Oxygen Concentration - - Weight 79.7 kg (175 lb 11.3 oz) 05/17/2018 3:17 PM PODIATRIC TECHNICIAN Height 157.5 cm (5' 2 ) 05/17/2018 3:17 PM PODIATRIC TECHNICIAN Body Mass Index 32.14 05/17/2018 3:17 PM PODIATRIC TECHNICIAN documented in this encounter Progress Notes * Murphy Mathew MD - 05/17/2018 2:45 PM CST Chief Complaint 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 Metabolic acidosis History of acute kidney injury in 2017 secondary to diarrhea and CMV History of Present Illness HPI Free Text: 37-year-old female presented for followup. She went to the emergency room on April 24 for ear pain and she was found to have external otitis, MRSA, she was satrted on Bactrim single strength daily for 10 days, her ear infection seems resolving. She saw liver transplants at [facility] in December last year, Prograf dose was decreased to 2 mg twice a day. She has not have Prograf level checked recently. She has graduated from school and currently is looking for employment. Her appetite is good. She denies nausea vomiting diarrhea. She denies shortness of breath or edema. She denies urinary symptoms. Review of Systems See HPI for pertinent positives. Active Problems 1. Abdominal pain (789.00) (R10.9) 2. Acute pharyngitis (462) (J02.9) 3. Anxiety (300.00) (F41.9) 4. Aphthous ulcer (528.2) (K12.0) 5. Chronic kidney disease (585.9) (N18.9) 6. Gastric ulcer (531.90) (K25.9) 7. Oral thrush (112.0) (B37.0) 8. Pancreatitis (577.0) (K85.90) 9. Transplanted liver (V42.7) (Z94.4) Past Medical History 1. History of Acute sinusitis (461.9) (J01.90) 2. History of Furuncle (680.9) (L02.92) 3. History of abdominal pain (V13.89) (Z87.898) 4. History of dehydration (V12.29) (Z86.39) 5. History of headache (V13.89) (Z87.898) Surgical History 1. History of Liver Transplant 2. History of Salpingectomy Family History 1. Family history of malignant neoplasm (V16.9) (Z80.9) Social History ?? Current every day smoker (305.1) (F17.200) ?? Denies alcohol consumption (V49.89) (Z78.9) Current Meds 1. Prograf 1 MG Oral Capsule; TAKE 2 CAPSULE Twice daily; Therapy: (Recorded:[id number]) to Recorded 2. Sodium Bicarbonate 650 MG Oral Tablet; TAKE 2 TABLETS BY MOUTH 3 TIMES A DAY DIRECTED; Therapy: [id number] to (Evaluate:[id number]) Requested for: 28Aug2017; Last Rx:28Aug2017 Ordered Allergies 1. Aspirin TABS 2. Codeine Derivatives 3. Erythromycin Derivatives 4. Toradol Vitals Recorded: 17May2018 03:17PM Temperature 97.8 F Heart Rate 93 Systolic 141, RUE, Sitting Diastolic 92, RUE, Sitting Height 157.48 cm Weight 79.7 kg BMI Calculated 32.14 BSA Calculated 1.81 Physical Exam Constitutional General appearance: Normal. Neck Neck: Normal. Pulmonary Auscultation of lungs: Normal. Cardiovascular Auscultation of heart: Normal. Examination of extremities for edema and/or varicosities: No edema. Abdomen Abdomen: Normal. Lymphatic Palpation of lymph nodes in neck: Normal. Psychiatric Orientation to person, place, and time: Normal. Results/Data April 24. Hemoglobin 11.3 potassium 2.9 recheck 4.8 creatinine 2.1 BUN 23 urinalysis 1+ protein Assessment 1. Chronic kidney disease (585.9) (N18.9) 2. Transplanted liver (V42.7) (Z94.4) Plan Transplanted liver 1. CBC with Diff; Status:Hold For - Exact Date; Requested for:Before next appointment; Perform:Other Lab; Due:16Jun2018; Last Updated By:Chela Lindsay; 05/17/2018 3:36:36 PM;Ordered; For:Transplanted liver; Ordered By:Murphy Mathew; 2. Renal Function Panel; Status:Active; Requested for:17May2018; Perform:Other Lab; Due:16Jun2018; Last Updated By:Chela Lindsay; 05/17/2018 3:35:45 PM;Ordered; For:Transplanted liver; Ordered By:Murphy Mathew; 3. Renal Function Panel; Status:Hold For - Exact Date; Requested for:Before next appointment; Perform:Other Lab; Due:16Jun2018; Last Updated By:Chela Lindsay; 05/17/2018 3:36:36 PM;Ordered; For:Transplanted liver; Ordered By:Murphy Mathew; 4. UA (Urinalysis); Status:Hold For - Exact Date; Requested for:Before next appointment; Perform:Other Lab; Due:16Jun2018; Last Updated By:Chela Lindsay; 05/17/2018 3:36:36 PM;Ordered; For:Transplanted liver; Ordered By:Murphy Mathew; Discussion/Summary #1. 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 Baseline creatinine 2.4. I have reviewed her laboratory with the patient in detail. Her kidney function remains stable. I have advised patient to follow with her liver transplant program regularly. Will check renal functionpanel given her recent Bactrim which is renally dosed. #2. Metabolic acidosis. Continue sodium bicarbonate 1300 mg t.i.d. #3. History of thrombocytopenia. I have advised patient to follow with hematology. RTC. 4 months. CC. Porter Ramirez M.D. Signatures Electronically signed by : Murphy Mathew M.D.; May 18 2018 10:59AM PODIATRIC TECHNICIAN (Author) documented in this encounter Plan of Treatment Not on file documented as of this encounter Visit Diagnoses Not on filedocumented in this encounter Care Teams Purchasing Buyer Relationship Specialty Start Date End Date Hermes Ramirez III, MD [address] [facility] [address] [place] [address] PCP - General FAMILY PRACTICE 06/20/17 documented as of this encounter
--- OUTSIDE RECORDS SUMMARY | 2024-03-20 11:55 | XMS_ITS | Encounter Summary ---
Author Organization [facility] Address [address] [place] [address]. [place], [place] [id number] [place] [address] Care Team Providers Care Polyethylene Combiner Name Role Phone Ashley ZUNIGA MD, Hermes Perez Primary Care Provid er Encounter Details Date Type Department Care Team (Late st Contact Info) Description 08/25/2018 Abstract [facility] [address] [place] [address] , Generic MD Anisa Social History Tobacco Use Types Packs/Day Years Used Date Smoking Tobacco: Every Day Cigarettes 0.5 15 Smokeless Tobacco: Never Alcohol Use Standard Drinks/Week Comments No 0 (1 standard drink = 0.6 oz pur e alcohol) Comments No Sex and Gender Information Value Date Recorded Sex Assigned at Not on file Legal Sex Female 9:15 PM MD PSYCHIATRY Gender Identity Not on file Sexual Orientation Not on file documented as of this encounter Plan of Treatment Not on file documented as of this encounter Visit Diagnoses Not on filedocumented in this encounter Additional Health Concerns Infection Onset Date Last Indicated Resolved Time COVID-19 Rule Out 03/30/2020 03/30/2020 03/30/2020 9:29 PM MD PSYCHIATRY COVID-19 Rule Out 03/30/2020 03/30/2020 03/31/2020 12:28 PM MD PSYCHIATRY COVID-19 Rule Out 02/16/2024 02/16/2024 02/16/2024 9:16 PM MD PSYCHIATRY Rhinovirus 02/16/2024 02/16/2024 02/26/2024 12:3 2 AM MD PSYCHIATRY documented as of this encounter Care Teams Polyethylene Combiner Relationship Specialty Start Date End Date Hermes Ramirez III, MD [address] [facility] [address] [place] [address] PCP - General FAMILY PRACTICE 06/20/17 documented as of this encounter
--- OUTSIDE RECORDS SUMMARY | 2024-03-20 11:55 | XMS_ITS | Encounter Summary ---
Author Organization [facility] Address [address] [place] [address]. [place] [address] [place] [address] Care Team Providers Care Gis Software Engineer Name Role Phone Ashley ZUNIGA MD, Hermes Perez Primary Care Provid er Encounter Details Date Type Department Care Team (Late st Contact Info) Description 03/03/2018 Abstract [facility] [address] [facility] [place], [place] [id number] David Box MD [address] [facility] [address] [place], [place] [id number] Social History Tobacco Use Types Packs/Day Years Used Date Smoking Tobacco: Every Day Cigarettes 0.5 15 Smokeless Tobacco: Never Alcohol Use Standard Drinks/Week Comments No 0 (1 standard drink = 0.6 oz pur e alcohol) Comments No Sex and Gender Information Value Date Recorded Sex Assigned at Not on file Legal Sex Female 9:15 PM DESKTOP ADMINISTRATOR Gender Identity Not on file Sexual Orientation Not on file documented as of this encounter Plan of Treatment Not on file documented as of this encounter Visit Diagnoses Diagnosis Migraine without status migrainosus, not intractable Migraine, unspecified, without mention of intractable migraine without mention of status migrainosus documented in this encounter Care Teams Gis Software Engineer Relationship Specialty Start Date End Date Hermes Ramirez III, MD [address] [facility] [address] [place] [address] PCP - General FAMILY PRACTICE 06/20/17 documented as of this encounter
--- OUTSIDE RECORDS SUMMARY | 2024-03-20 11:55 | XMS_ITS | Encounter Summary ---
Author Organization [facility] Address [address] [place] [address]. [place] [address] [place] [address] Care Team Providers Care Digital Account Director Name Role Phone Ashley ZUNIGA MD, Hermes Perez Primary Care Provid er Encounter Details Date Type Department Care Team (Late st Contact Info) Description 02/27/2018 Abstract [facility] [address] [facility] [place], [place] [id number] Bob Lucas MD [address] [facility] [place] [address] Social History Tobacco Use Types Packs/Day Years Used Date Smoking Tobacco: Every Day Cigarettes 0.5 15 Smokeless Tobacco: Never Alcohol Use Standard Drinks/Week Comments No 0 (1 standard drink = 0.6 oz pur e alcohol) Comments No Sex and Gender Information Value Date Recorded Sex Assigned at Not on file Legal Sex Female 9:15 PM SUPERVISOR INSPECTING Gender Identity Not on file Sexual Orientation Not on file documented as of this encounter Plan of Treatment Not on file documented as of this encounter Visit Diagnoses Diagnosis Migraine without status migrainosus, not intractable Migraine, unspecified, without mention of intractable migraine without mention of status migrainosus documented in this encounter Care Teams Digital Account Director Relationship Specialty Start Date End Date Hermes Ramirez III, MD [address] [facility] [address] [place] [address] PCP - General FAMILY PRACTICE 06/20/17 documented as of this encounter
--- OUTSIDE RECORDS SUMMARY | 2024-03-20 11:55 | XMS_ITS | Encounter Summary ---
Author Organization [facility] Address [address] [place] [address]. [place] [address] [place] [address] Care Team Providers Care Bottom Saw Operator Name Role Phone Ashley ZUNIGA MD, Hermes Perez Primary Care Provid er Encounter Details Date Type Department Care Team (Late st Contact Info) Description 04/10/2018 Abstract [facility] [address] [place] [address] Akil Soriano MD [address] [place] [address] Social History Tobacco Use Types Packs/Day Years Used Date Smoking Tobacco: Every Day Cigarettes 0.5 15 Smokeless Tobacco: Never Alcohol Use Standard Drinks/Week Comments No 0 (1 standard drink = 0.6 oz pur e alcohol) Comments No Sex and Gender Information Value Date Recorded Sex Assigned at Not on file Legal Sex Female 9:15 PM HAUNTED HISTORY TOUR GUIDE Gender Identity Not on file Sexual Orientation Not on file documented as of this encounter Plan of Treatment Not on file documented as of this encounter Visit Diagnoses Diagnosis Headache documented in this encounter Care Teams Bottom Saw Operator Relationship Specialty Start Date End Date Hermes Ramirez III, MD [address] [facility] [address] [place] [address] PCP - General FAMILY PRACTICE 06/20/17 documented as of this encounter
--- OUTSIDE RECORDS SUMMARY | 2024-03-20 11:55 | XMS_ITS | Encounter Summary ---
Author Organization [facility] Address [address] [place] [address]. 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 Gender Identity Not on file Sexual Orientation Not on file documented as of this encounter Last Filed Vital Signs Vital Sign Reading Time Taken Comments Blood Pressure 139/87 10/29/2018 6:12 PM CDT Pulse 100 10/29/2018 6:12 PM CDT Temperature 36.8 ??C (98.3 ??F) 10/29/2018 4:13 PM CD T Respiratory Rate 16 10/29/2018 6:12 PM CDT Oxygen Saturation 98% 10/29/2018 6:12 PM CDT Inhaled Oxygen Concentration - - Weight 72.6 kg (160 lb) 10/29/2018 4:13 PM CDT Height 157.5 cm (5' 2 ) 10/29/2018 4:13 PM CDT Body Mass Index 29.26 10/29/2018 4:13 PM CDT documented in this encounter Discharge Instructions * Attachments The following attachments cannot be sent through Care Everywhere. * Peptic Ulcers (Montenegrin) documented in this encounter Medications at Time of Discharge butorphanol 10 MG/ML nasal spray by Nasal route every 4 (four) hours as needed. 1 clotrimazole-betame thasone cream Use bid to external ear 05/09/2018 9 duloxetine (CYMBALTA) 20 MG capsule Take [...] Take 0.35 mg by mouth. 06/25/2012 9 pantoprazole EC (PROTONIX) 40 MG tablet Take 1 tablet (40 mg total) by mouth daily. 30 tablet 10/29/2018 9 predniSONE 2.5 mg tablet Take 2.5 mg by mouth. 06/25/2012 9 Vit-Fe Fumarate-FA (PNV PLUS MULTIVITAMIN) 27-1 MG Tab Take 1 tablet by mouth daily. 9 promethazine 25 MG tablet Take 25 mg by mouth. 9 SODIUM BICARBONATE 650 MG tablet TAKE 2 TABLETS BY MOUTH 3 TIMES A DAY DIRECTED 180 tablet 1 10/22/2018 9 SUMAtriptan 50 MG tablet 02/13/2018 9 [...] as of this encounter ED Notes * Carmelita Forbes RN - 10/29/2018 4:13 PM CDT Pt presents to ed with co pain to upper abdomen/burning and cramping that began 3 days ago. Pt reports not being able to sleep at night due to increase in pain. Pt also describes headache associated with not sleeping. Rates pain 9/10 on scale. Pt has hx of ulcers, states pain in abdomen is similar to pain with ulcers. Pt reports increase in acid reflux for the past week. * Ziyad Hu MD - 10/29/2018 4:09 PM CDT eMERGENCY dEPARTMENT eNCOUnter CHIEF COMPLAINT Chief Complaint Patient presents with ??? Abdominal Pain ??? Headache HPI I, Jessica Lopez, acting as a scribe, am personally taking down the notes in the presence of Dr. Ziyad Hu MD. Take no action on this note until reviewed and authenticated by the physician. Patient is a 38 year old female presenting to the ED seeking evaluation for a headache onset x1 dayago. Patient states that she has been experiencing a headache for the past x1 day. She mentions that she is also having lower abdominal pain that is consistent with previous ulcers that she has been h ospitalized for in the past. Patient reports that she has been on medications in the past for ulcers but her primary doctor does not leave her on them daily. She notes that she has had a liver transplant, two Caesarean sections, and two hernia repairs. Patient mentions that she is unable to sleep due to the pain. She reports that she has had GERD lately, as well as noticing blood from her throat when she brushes her teeth. Patient denies fever, chills, nausea, vomiting, diarrhea, chest pain, shortness of breath, cough, rhinorrhea, sore throat, trauma or injury to area of complaint, back or neck pain, changes in vision/hearing/speech/bladder or bowel habits/eating or drinking habits. Patient denies any pertinent past medical history or taking any medication for pain relief. Patient is in otherwise baseline state of health and all other review of systems negative upon review. History provided by: Patient Elsa Browne is a 38-year-old female who presents to the ER ALLERGIES Allergies Allergen Reactions ??? Aspirin Other (see comment) C ??? Erythromycin Unknown ??? Morphine And Related Unknown ??? Toradol [Ketorolac Tromethamine] Other (see comment) KIDNEY CURRENT MEDICATIONS Current Outpatient Medications Medication Sig ??? pantoprazole EC (PROTONIX) 40 MG tablet Take 1 tablet (40 mg total) by mouth daily. ??? SODIUM BICARBONATE 650 MG tablet TAKE 2 TABLETS BY MOUTH 3 TIMES A DAY DIRECTED ??? tacrolimus 1 MG capsule Take 2 mg by mouth 2 (two) times daily. ??? butorphanol 10 MG/ML nasal spray ??? clotrimazole-betamethasone cream Use bid to external ear ??? duloxetine (CYMBALTA) 20 MG capsule Take 2 capsules by mouth daily. ??? DULoxetine HCl 40 MG CAPSULE ENTERIC COATED PARTICLES Take 1 capsule by mouth daily. ??? escitalopram 10 MG tablet Take 10 mg by mouth daily. ??? fluconazole 150 MG tablet TAKE 1 TAB A SINGLE DOSE ??? HYDROmorphone 2 MG tablet Take 2 mg by mouth. ??? hydrOXYzine 25 MG capsule TAKE 1 CAP BY MOUTH 4 TIMES DAILY NEEDED (MIGRAINES). ??? IRON OR Take 1 tablet by mouth. ??? lorazepam (ATIVAN) 0.5 MG tablet Take 1 tablet by mouth. ??? metoclopramide 10 MG tablet ??? metroNIDAZOLE 0.75 % vaginal gel INSTILL 1 APPLICATOR FULL VAGINALLY AT BEDTIME FOR 5 NIGHTS ??? mirtazapine 15 MG disintegrating tablet ??? mupirocin 2 % ointment APPLY TO AREA BEHIND EAR TWICE A DAY ??? Norethindrone, Contraceptive, 0.35 MG tablet Take 0.35 mg by mouth. ??? predniSONE 2.5 mg tablet Take 2.5 mg by mouth. ??? Vit-Fe Fumarate-FA (PNV PLUS MULTIVITAMIN) 27-1 MG Tab Take 1 tablet by mouthdaily. ??? promethazine 25 MG tablet Take 25 mg by mouth. ??? SUMAtriptan 50 MG tablet ??? tretinoin 0.05 % cream APPLY A PEA SIZED AMOUNT TO ENTIRE FACE NIGHTLY ??? venlafaxine XR 37.5 MG 24 hr capsule PAST MEDICAL HISTORY Past Medical History: Diagnosis Date ??? Anemia ??? Biliary atresia congenital ??? Chronic kidney disease ??? Thrombocytopenia (CMS/HCC) SURGICAL HISTORY Past Surgical [...] resource strain: Not on file ??? Food insecurity: Worry: Not on file Inability: Not on file ??? Transportation needs: Medical: Not on file Non-medical: Not on file Tobacco Use ??? Smoking status: Current Every Day Smoker Packs/day: 0.50 Years: 15.00 Pack years: 7.50 ??? Smokeless tobacco: Never Used Substance and Sexual Activity ??? Alcohol use: No ??? Drug use: No ??? Sexual activity: Not on file Lifestyle ??? Physical activity: Days per week: Not on file Minutes per session: Not on file ??? Stress: Not on file Relationships ??? Social connections: Talks on phone: Not on file Gets together: Not on file Attends holiness service: Not on file Active member of club or organization: Not on file Attends meetings of clubs or organizations: Not on file Relationship status: Not on file ??? Intimate partner violence: Fear of current or ex partner: Not on file Emotionally abused: Not on file Physically abused: Not on file Forced sexual activity: Not on file Other Topics Concern ??? Not on file Social History Narrative ??? Not on file FAMILY HISTORY Family History Problem Relation Name Age of Onset ??? Diabetes Neg Hx REVIEW OF SYSTEMS Review of Systems Constitutional: Negative. HENT: Negative. Eyes: Negative. Respiratory: Negative. Cardiovascular: Negative. Gastrointestinal: Positive for abdominal pain. GERD Endocrine: Negative. Genitourinary: Negative. Musculoskeletal: Negative. Skin: Negative. Allergic/Immunologic: Negative. Neurological: Positive for headaches. Hematological: Negative. Psychiatric/Behavioral: Positive for sleep disturbance (Unable to sleep due to pain). All other ROS negative unless noted above in HPI. PHYSICAL EXAM Physical Exam Constitutional: She is oriented to person, place, and time. She appears well- developed and well-nourished. HENT: Head: Normocephalic and atraumatic. Eyes: Conjunctivae and EOM are normal. Pupils are equal, round, and reactive to light. Neck: Normal range of motion. Neck supple. Cardiovascular: Normal rate, regular rhythm and normal heart sounds. Pulmonary/Chest: Effort normal and breath sounds normal. Abdominal: Soft. Bowel sounds are normal. There is tenderness (Mild mid epigastric tenderness). Musculoskeletal: Normal range of motion. Neurological: She is alert and oriented to person, place, and time. Skin: Skin is warm and dry. Nursing note and vitals reviewed. Filed Vitals: 10/29/18 1613 BP: 159/83 Pulse: 111 Resp: 18 Temp: 98.3 ??F (36.8 ??C) TempSrc: Temporal SpO2: 99% Weight: 72.6 kg (160 lb) Height: 5' 2 (1.575 m) EKG RADIOLOGY No orders to display LABS No results found for this visit on 10/29/18. ED MEDICATIONS Medications pantoprazole (PROTONIX) injection 40 mg (40 mg Intravenous Given 10/29/18 1703) ondansetron (ZOFRAN) injection 4 mg (4 mg Intravenous Given 10/29/18 1704) HYDROmorphone (DILAUDID) injection 1 mg (1 mg Intravenous Given 10/29/18 1703) PROCEDURES Procedures CONSULTS: ED COURSE & MEDICAL DECISION MAKING MDM Medications pantoprazole (PROTONIX) injection 40 mg (40 mg Intravenous Given 10/29/18 1703) ondansetron (ZOFRAN) injection 4 mg (4 mg Intravenous Given 10/29/18 1704) HYDROmorphone (DILAUDID) injection 1 mg (1 mg Intravenous Given 10/29/18 1703) Current Discharge Medication List START taking these medications Details pantoprazole EC (PROTONIX) 40 MG tablet Take 1 tablet (40 mg total) by mouth daily. Qty: 30 tablet, Refills: 0 Class: Eprescribe Pharmacy: [facility]/pharmacy #[id number] (Ph #: [phone]) Hermes Ramirez III, MD [address] [facility] [address] [place] [id number] In 2 days If symptoms worsen I know this patient fairly well from multiple ER visits in the past and there certainly seems to peter propensity to needing narcotic pain medication for the various complaints that she presents with.I not seen her for headache before but I cannot recall seeing her for ulcer type pain. She is quiteconfident that her pain now is from an ulcer and she does not want any type of work-up only some pain relief and to be back on her Protonix. I have explained to her that we will give 1 dose of narcotic this time but we cannot do this again in the future if she presents with similar complaints to this emergency department. The end of my shift is approaching and the patient is just getting her medication now. It is anticipated that she will be discharged soon and I will put her on a proton pump inhibitor. Patient will be endorsed next emergency physician pending reevaluation and please see the chart for final disposition. FINAL IMPRESSION SNOMED CT(R) 1. Peptic ulcer PEPTIC ULCER Hermes Ramirez III, MD [address] [address] In 2 days If symptoms worsen New Prescriptions PANTOPRAZOLE EC (PROTONIX) 40 MG TABLET Take 1 tablet (40 mg total) by mouth daily. Jessica Lopez, 10/29/18, 17:08. Provider Attestation: Attestation Portions of this note were transcribed by the scribe. I, Ziyad Hu, personally performed the history, physical exam and medical decision making; and confirmed the accuracy of the information inthe transcribed note. Authenticated by Ziyad Hu MD 10/29/181707 Ziyad Hu MD 10/29/18 1708 documented in this encounter Plan of Treatment Not on file documented as of this encounter Visit Diagnoses Diagnosis Peptic ulcer- Primary Peptic ulcer, unspecified site, unspecified as acute or chronic, without mention of hemorrhage, perforation, or obstruction documented in this encounter Administered Medications Inactive Administered Medications - up to 3 most recent administrations Medication Order MAR Action Action Date Dose Rate Site HYDROmorphone (DILAUDID) injection 1 mg 1 mg, Intravenous, Once, 1 dose, On Mon10/29/18 at 1645 Given 10/29/2018 5:03 PM CDT 1 mg Left Arm ondansetron (ZOFRAN) injection 4 mg 4 mg, Intravenous, Once, 1 dose, On Mon10/29/18 at 1645, IV push over 2-5 minutes. Given 10/29/2018 5:04 PM CDT 4 mg pantoprazole (PROTONIX) injection 40 mg 40 mg, Intravenous, Once, 1 dose, On Mon10/29/18 at 1645, Prior to administration, dilute each 40 mg vial with 10 mls NS. Reconstitute each 40 mg vial with 10 mL normal saline to a final concentration of 4 mg/mL. Administer intravenously over a period of a least 2 minutes. Given 10/29/2018 5:03 PM CDT 40 mg Left Arm promethazine (PHENERGAN) injection 12.5 mg 12.5 mg, Intravenous, Once, 1 dose, On Mon10/29/18 at 1730 Given 10/29/2018 5:33 PM CDT 12.5 mg documented in this encounter Active and Recently Administered Medications Times are shown in CDT. Scheduled Medication Order 10/27/2018 10/28/2018 10/29/2018 HYDROmorphone (DILAUDID) injection 1 mg (COMPLETED) 1 mg, Intravenous, Once, 1 dose, On Mon10/29/18 at 1645 1703 (Given - Provid er: Felicitas Grover, ANSON) ondansetron (ZOFRAN) injection 4 mg (COMPLETED) 4 mg, Intravenous, Once, 1 dose, On Mon10/29/18 at 1645, IV push over 2-5 minutes. 1704 (Given - Provid er: Felicitas Grover RN) pantoprazole (PROTONIX) injection 40 mg (COMPLETED) 40 mg, Intravenous, Once, 1 dose, On Mon10/29/18 at 1645, Prior to administration, dilute each 40 mg vial with 10 mls NS. Reconstitute each 40 mg vial with 10 mL normal saline to a final concentration of 4 mg/mL. Administer intravenously over a period of a least 2 minutes. 1703 (Given - Provid er: Felicitas Grover RN) promethazine (PHENERGAN) injection 12.5 mg (COMPLETED) 12.5 mg, Intravenous, Once, 1 dose, On Mon10/29/18 at 1730 1733 (Given - Provid er: Felicitas Grover RN) documented in this encounter Care Teams Machine Repairer Maintenance Relationship Specialty Start Date End Date Hermes Ramirez III, MD [address] [address] PCP - General FAMILY PRACTICE 06/20/17 documented as of this encounter
--- OUTSIDE RECORDS SUMMARY | 2024-03-20 11:55 | XMS_ITS | Encounter Summary ---
Author Organization [facility] Address [address] [place] [address]. [place], [place] [id number] [place] [address] Care Team Providers Care Refinery Operator Vapor Recovery Unit Name Role Phone Ashley ZUNIGA MD, Hermes Perez Primary Care Provid er Encounter Details Date Type Department Care Team (Late st Contact Info) Description 08/30/2018 Orders Only [facility] [address] [place] [address] Tiny López, SECURITY CHECKER Social History Tobacco Use Types Packs/Day Years Used Date Smoking Tobacco: Every Day Cigarettes 0.5 15 Smokeless Tobacco: Never Alcohol Use Standard Drinks/Week Comments No 0 (1 standard drink = 0.6 oz pur e alcohol) Comments No Sex and Gender Information Value Date Recorded Sex Assigned at Not on file 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
--- OUTSIDE RECORDS SUMMARY | 2024-03-20 11:55 | XMS_ITS | Encounter Summary ---
Author Organization [facility] Address [address] [place] [address]. [place], [place] [address] [place] [address] Care Team Providers Care Family Welfare Social Work Professor Name Role Phone Ashley ZUNIGA MD, Hermes Perez Primary Care Provid er Encounter Details Date Type Department Care Team (Latest Contact Info) Description 01/10/2018 Abstract [facility] , Lazara Lange MD Social History Tobacco Use Types Packs/Day Years Used Date Smoking Tobacco: Every Day Cigarettes 0.5 15 Smokeless Tobacco: Never Alcohol Use Standard Drinks/Week Comments No 0 (1 standard drink = 0.6 oz pur e alcohol) Comments No Sex and Gender Information Value Date Recorded Sex Assigned at Not on file 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
--- OUTSIDE RECORDS SUMMARY | 2024-03-20 11:55 | XMS_ITS | Encounter Summary ---
Author Organization [facility] Address [address] [place] [address]. [place], [place] [id number] [place] [id number] Care Team Providers Care Infection Control Nurse Name Role Phone Ashley ZUNIGA MD, Hermes Perez Primary Care Provid er Reason for Visit * Reason Comments Abdominal Pain Encounter Details Date Type Department Care Team (Late st Contact Info) Description 01/08/2019 9:50 PM CDT - 01/09/2019 1:46 AM CDT Emergency [facility] Emergency [address] [place] [address] Kris Caruso, LACE PAPER MACHINE OPERATOR [address] [place] [address] Abdominal Pain Discharge Disposition: Home or Self Care [...] on file Legal Sex Female 9:15 PM EMERGENCY MAN Gender Identity Not on file Sexual Orientation Not on file documented as of this encounter Last Filed Vital Signs Vital Sign Reading Time Taken Comments Blood Pressure 149/96 01/08/2019 9:48 PM CDT Pulse 102 01/08/2019 9:48 PM CDT Temperature 37.6 ??C (99.6 ??F) 01/08/2019 9:48 PM CD T Respiratory Rate 24 01/08/2019 9:48 PM CDT Oxygen Saturation 100% 01/08/2019 9:48 PM CDT Inhaled Oxygen Concentration - - Weight 82 kg (180 lb 12.4 oz) 01/08/2019 9:48 PM CDT Height 157.5 cm (5' 2 ) 01/08/2019 9:48 PM CDT Body Mass Index 33.06 01/08/2019 9:48 PM CDT documented in this encounter Discharge Instructions * Discharge Instructions* ROSE MARIE Dover - 01/09/2019 1:35 AM CDT Take medications as prescribed. Get plenty of clear fluids and stay well- hydrated. Call your rib builder and primary care doctor tomorrow for appointments to be seen as soon as possible as discussed. Return to emergency department for any new or worsening concerns. * Attachments The following attachments cannot be sent through Care Everywhere. * Chronic Kidney Disease Discharge Instructions ([place] Island[place]) * Severe Abdominal Pain Discharge Instructions, Adult ([place]) documented in this encounter Medications at Time of Discharge butorphanol 10 MG/ML nasal spray by Nasal route every 4 (four) hours as needed. 1 hydrocodone-aceta minophen 7.5-325 MG tabletIndications :Acute Pain < 3 Day Supply,abdominal pain Take 1 tablet by mouth every 6 (six) hours as needed for Pain. Indications: Acute Pain < 3 Day Supply, abdominal pain 12 tablet 01/09/2019 9 pantoprazole EC (PROTONIX) 40 MG tablet Take 1 tablet (40 mg total) by mouth daily. 30 tablet 10/29/2018 9 sodium bicarbonate 650 MG tabletIndications :Pt needs a follow up Take 2 tablets (1,300 mg total) by mouth 3 (three) times a day. 180 tablet 11/06/2018 0 tacrolimus (PROGRAF) 1 MG capsule Take 1 tablet by mouth 2 (two) times daily. 02/06/2017 3 tacrolimus 1 MG capsule Take 2 mg by mouth 2 (two) times daily. 9 documented as of this encounter ED Notes * ROSE MARIE Dover - 01/08/2019 10:05 PM CDT I, zak Graham, am personally taking down the notes in the presence of ROSE MARIE Dover.?Take no action on this note until reviewed and authenticated??by the physician. Chief Complaint Chief Complaint Patient presents with ??? Abdominal Pain History of Present Illness History provided by: Patient Elsa Browne is a 38-year-old female presenting to the ED for abdominal pain that has been ongoing for a few days. Patient reports that she has had ulcers in the past and her symptoms are like what she felt before. She reports that her pain is worse in the night and after she eats. She reportsassociated nausea and chills but denies dysuria, fever, diarrhea and emesis. Patient reports that her last ulcer was about 2 years ago. Patient has a history of liver transplant, tubal ligation, appendectomy, and cholecystectomy. No other positive complaints were reported upon review of systems. Medical History ALLERGIES: Allergies Allergen Reactions ??? Aspirin Other (see comment) C ??? Erythromycin Unknown ??? Toradol [Ketorolac Tromethamine] Other (see comment) KIDNEY MEDICATIONS: Prior to Admission medications Medication Sig Start Date End Date Taking? Authorizing Provider hydrocodone-acetaminophen 7.5-325 MG tablet Take 1 tablet by mouth every 6 (six) hours as needed for Pain. Indications: Acute Pain < 3 Day Supply, abdominal pain 01/09/19 Yes ROSE MARIE Dover butorphanol 10 MG/ML nasal spray Doc Abstract pantoprazole EC (PROTONIX) 40 MG tablet Take 1 tablet (40 mg total) by mouth daily. 10/29/18 MD Bia sodium bicarbonate 650 MG tablet Take 2 tablets (1,300 mg total) by mouth 3 (three) times a day. 11/06/18 Shimon Wheatley MD tacrolimus 1 MG capsule Take 2 mg by mouth 2 (two) times daily. Doc Abstract PAST MEDICAL HISTORY: [...] Systems Review of Systems Constitutional: Positive for chills. Negative for fever. HENT: Negative. Eyes: Negative. Respiratory: Negative. Cardiovascular: Negative. Gastrointestinal: Positive for abdominal pain and nausea. Negative for diarrhea and vomiting. Endocrine: Negative. Genitourinary: Negative for dysuria. Musculoskeletal: Negative. Skin: Negative. Allergic/Immunologic: Negative. Neurological: Negative. Hematological: Negative. Psychiatric/Behavioral: Negative. Physical Exam Filed Vitals: 01/08/198 BP: (!) 149/96 Pulse: 102 Resp: 24 Temp: 99.6 ??F (37.6 ??C) TempSrc: Oral SpO2: 100% Weight: 82 kg (180 lb 12.4 oz) Height: 5' 2 (1.575 m) Physical Exam Nursing note and vitals reviewed. Generalized Appearance: No apparent distress. Well developed. Well nourished. Skin: Warm and dry. No rash. Head: Normocephalic and atraumatic Eyes: Conjunctiva clear with no scleral icterus or jaundice. Back: Normal ROM. Chest and Respiratory: Airway patent. Breath sounds equal. Lungs clear with auscultation. No stridor, wheezes, rales, or rhonchi. No accessory muscle use. No respiratory distress. Cardiovascular: Regular rate and rhythm. No murmur, rubs, or gallops. Abdominal: Epigastric and lower middle abdominal tenderness. Soft. Non- distended. No obvious massesor hernias. No rebound, guarding, or rigidity. Vascular: No edema to BLE. Musculoskeletal: Normal ROM. No deformity. Neurologic: Alert and oriented x 3. No gross motor deficits. Mental Status: Normal affect. Genital-Rectal: female deferred Diagnostic Studies / Procedures ELECTROCARDIOGRAMS: No results found for this visit on 01/08/19. LABORATORY STUDIES: Results for orders placed or performed during the hospital encounter of 01/08/19 URINALYSIS Result Value Ref Range COLOR LIGHT YELLOW TRANSPARENCY CLEAR Specific [place] (U) 1.009 1.002 - 1.035 U PH 6.0 5 - 8 PROTEIN, URINE NEGATIVE NEGATIVE URINE GLUCOSE NEGATIVE NEGATIVE MG/DL U KETONES NEGATIVE NEGATIVE Urine Bilirubin NEGATIVE NEGATIVE BLOOD NEGATIVE NEGATIVE NITRITES NEGATIVE NEGATIVE UROBILINOGEN NORMAL 0 - 1 EU/DL LEUKOCYTE ESTERASE NEGATIVE NEGATIVE RBC/HPF <1 0 - 3 /HPF WBC/HPF NONE 0 - 6 /HPF BACTERIA (URINE) NONE /HPF SQUAMOUS EPITHELIALS 3 TEST URINE Result Value Ref Range PREG TEST NEGATIVE CBC W/DIFF AUTOMATED Result Value Ref Range WBC 5.6 4.0 - 10.8 x10'3/uL RBC 3.06 (L) 4.10 - 5.40 x10'6/uL HGB 10.6 (L) 12.0 - 16.0 G/DL HCT 30.3 (L) 36.0 - 47.0 % MCV 99.0 78.0 - 100.0 FL MCH 34.6 (H) 27.0 - 31.0 PG MCHC 35.0 33.0 - 36.0 G/DL RDW 13.2 11.5 - 14.5 % PLT 47 (L) 150 - 350 x10'3/uL MPV 11.9 (H) 7.4 - 10.4 FL ABS. NEUTROPHILS TOTAL 3.49 1.60 - 8.30 x10'3/uL ABS. LYMPHOCYTES 1.29 0.80 - 4.70 x10'3/uL ABS. MONOCYTES 0.46 0.00 - 1.50 x10'3/uL ABS. EOSINOPHILS 0.28 0.00 - 0.40 x10'3/uL ABS. BASOPHILS 0.02 0.00 - 0.20 x10'3/uL ABS. IMMATURE GRANULOCYTES 0.07 (H) 0.00 - 0.03 x10'3/uL ABS. NUCLEATED RBC'S 0.00 0.0 x10'3/uL COMPREHENSIVE METABOLIC PANEL Result Value Ref Range SODIUM 142 136 - 145 MMOL/L POTASSIUM 4.0 3.5 - 5.1 MMOL/L CHLORIDE 119 (H) 98 - 107 MMOL/L CO2 15.1 (L) 21.0 - 32.0 MMOL/L GLUCOSE 90 74 - 106 MG/DL BUN 39 (H) 7 - 18 MG/DL CREATININE 2.61 (H) 0.55 - 1.02 MG/DL CALCIUM 7.7 (L) 8.5 - 10.1 MG/DL TOTAL BILIRUBIN 1.0 0.2 - 1.0 MG/DL ALK PHOS 225 (H) 37 - 98 U/L AST 35 15 - 37 U/L ALT 34 13 - 56 U/L TOTAL PROTEIN 6.4 6.4 - 8.2 G/DL ALBUMIN 3.1 (L) 3.4 - 5.0 G/DL ANION GAP 7.9 5.0 - 15.0 MMOL/L OSMOLALITY (CALC) 303 MOSM/KG eGFR Non-Afr. Amer. 23 (L) >90 ML/MIN/1.73 M2 eGFR Afr. Amer. 26 (L) >90 ML/MIN/1.73 M2 GFR NOTES THE ESTIMATED GFR IS CALCULATED USING THE 2009 CKD-EPI EQUATION. THE FOLLOWING CATEGORIES FOR GRADING RENAL FUNCTION ARE RECOMMENDED BY THE INTERNATIONAL SOCIETY OF NEPHROLOGY (KDIGO 2012 CLINICAL PRACTICE GUIDELINE). LIPASE Result Value Ref Range LIPASE 126 73 - 393 UNITS/L IMAGING STUDIES No orders to display ED Course / Medical Decision Making MDM Number of Diagnoses or Management Options Abdominal pain: Chronic kidney disease: Amount and/or Complexity of Data Reviewed Clinical lab tests: reviewed and ordered Decide to obtain previous medical records or to obtain history from someone other than the patient:yes Review and summarize past medical records: yes Risk of Complications, Morbidity, and/or Mortality Presenting problems: moderate Diagnostic procedures: moderate Management options: moderate Patient Progress Patient progress: improved ED Course as of Jan 10 144 Tue Jan 08, 2019 2223 PREG TEST: NEGATIVE [JZ] 2355 CREATININE: (!) 2.61 [JZ] 2356 ALK PHOS: (!) 225 [JZ] Wed Jan 09, 2019 0141 Patient's labs were discussed with patient including elevated creatinine, patient has chronic kidney disease, this is near baseline for her however more elevated than usual; test admission with patient for CHRISTY; patient declines and states that she would prefer to follow-up with her rib builder as outpatient, reports she has good rapport with her rib builder and will call tomorrow. She alsoappears to have a metabolic alkalosis, reports she takes bicarb at home for her chronic kidney disease. Patient reports her epigastric pain has improved after medications and is requesting to return home. She is able to tolerate p.o. without difficulty. She will call her rib builder and primary care doctor tomorrow for appointments. Return precautions discussed with understanding verbalized. [JZ] ED Course User Index [JZ] ROSE MARIE Dover Clinical Impression Abdominal pain (Primary) Chronic kidney disease Disposition: Discharge Cosigner Fidel Espino Dejah Hubbard, 01/08/19, 22:25. Provider Attestation: Portions of this note were transcribed by the scribe. I, ROSE MARIE DOVER, personally performed the history, physical exam and medical decision making; and confirmed the accuracy of the information in the transcribed note. Authenticated by ROSE MARIE DOVER on 01/09/2019 ROSE MARIE Dover 01/09/19 0144 Cosigned by Beronica Lopez MD at 01/14/2019 6:56 PM CDT * Annie Salinas RN - 01/08/2019 9:26 PM CDT Pt arrives to ED with complaints of abdominal pain that began last week. Pt states she has crampinggeneralized over her abdomen. Pt states she is nauseous and diarrhea that is worse after she eats. Pt states she has a history of stomach ulcer. documented in this encounter Plan of Treatment Not on file documented as of this encounter Procedures Procedure Name Priority Date/Time Associated Diagnosis Comments TACROLIMUS STAT 01/08/2019 10:52 PM CDT CBC W/DIFF AUTOMATED STAT 01/08/2019 10:11 PM CDT COMPREHENSIVE METABOLIC PANEL STAT 01/08/2019 10:10 PM CDT LIPASE STAT 01/08/2019 10:10 PM CDT URINALYSIS Nurse Collected Priority 01/08/2019 9:35 PM CDT TEST URINE Nurse Collected Priority 01/08/2019 9:35 PM CDT URINE BACTERIA CULTURE Nurse Collected Priority 01/08/2019 9:35 PM CDT documented in this encounter Results * TACROLIMUS (01/08/2019 10:52 PM CDT) TACROLIMUS 6.5 NG/ML 01/10/2019 9:17 AM CDT [facility] Comment: A target range of 8 to 11 has been suggested for kidney transplant. Optional ranges depend upon the patient's clinical state, individual differences in sensitivity to immunosuppressive and adverse effects of Tacrolimus, co-administration of other immunosuppressants, time post-transplant, and a number of factors. Therefore, individual Tacrolimus values cannot be used as a sole indicator for making changes in treatment regimen, and each patient should be thoroughly evakuated clinically before changes in treatment regimen are made. [facility], [address], [place] [address] 01/08/2019 10:5 2 PM CDT us Kris Caruso LACE PAPER MACHINE OPERATOR LABORATORY Final Resul t [facility] [address] [place] [address], [phone] * (ABNORMAL) CBC W/DIFF AUTOMATED (01/08/2019 10:11 PM CDT) WBC 5.6 4.0 - 10.8 x10'3/uL 01/08/2019 10:52 PM CDT [facility] RBC 3.06(L) 4.10 - 5.40 x10'6/uL 01/08/2019 10:52 PM CDT [facility] HGB 10.6(L) 12.0 - 16.0 G/DL 01/08/2019 10:52 PM CDT [facility] HCT 30.3(L) 36.0 - 47.0 % 01/08/2019 10:52 PM CDT [facility] MCV 99.0 78.0 - 100.0 FL 01/08/2019 10:52 PM CDT [facility] MCH 34.6(H) 27.0 - 31.0 PG 01/08/2019 10:52 PM CDT [facility] MCHC 35.0 33.0 - 36.0 G/DL 01/08/2019 10:52 PM CDT [facility] RDW 13.2 11.5 - 14.5 % 01/08/2019 10:52 PM CDT [facility] PLT 47(L) 150 - 350 x10'3/uL 01/08/2019 10:52 PM T [facility] MPV 11.9(H) 7.4 - 10.4 FL 01/08/2019 10:52 PM T [facility] ABS. NEUTROPHILS TOTAL 3.49 1.60 - 8.30 x10'3/uL 01/08/2019 10:52 PM CDT [facility] ABS. LYMPHOCYTES 1.29 0.80 - 4.70 x10'3/uL 01/08/2019 10:52 PM CDT [facility] ABS. MONOCYTES 0.46 0.00 - 1.50 x10'3/uL 01/08/2019 10:52 PM T [facility] ABS. EOSINOPHILS 0.28 0.00 - 0.40 x10'3/uL 01/08/2019 10:52 PM CDT [facility] ABS. BASOPHILS 0.02 0.00 - 0.20 x10'3/uL 01/08/2019 10:52 PM T [facility] ABS. IMMATURE GRANULOCYTES 0.07(H) 0.00 - 0.03 x10'3/uL 01/08/2019 10:52 PM [facility] ABS. NUCLEATED RBC'S 0.00 0.0 x10'3/uL 01/08/2019 10:52 PM [facility] 01/08/2019 10:1 1 PM CDT Bailee Merchant MD LABORATORY Final Resul t Performing Organization Address [facility]/ZIP Co de Phone Number [facility] [address] [place] [address], [phone] * LIPASE (01/08/2019 10:10 PM CDT) LIPASE 126 73 - 393 UNITS/L 01/08/2019 11:06 PM CDT [facility] 01/08/2019 10:1 0 PM CDT Bailee Merchant MD LABORATORY Final Resul t Performing Organization Address [facility] [[email or web address]] de Phone Number [facility] [address] [place] [address], [phone] * (ABNORMAL) COMPREHENSIVE METABOLIC PANEL (01/08/2019 10:10 PM CDT) SODIUM S/P/B 142 136 - 145 MMOL/L 01/08/2019 11:06 PM CDT [facility] POTASSIUM S/P/B 4.0 3.5 - 5.1 MMOL/L 01/08/2019 11:06 PM CDT [facility] CHLORIDE S/P/B 119(H) 98 - 107 MMOL/L 01/08/2019 11:06 PM CDT [facility] CO2 15.1(L) 21.0 - 32.0 MMOL/L 01/08/2019 11:06 PM CDT [facility] GLUCOSE 90 74 - 106 MG/DL 01/08/2019 11:06 PM CDT [facility] BUN 39(H) 7 - 18 MG/DL 01/08/2019 11:06 PM CDT [facility] CREATININE S/P/B 2.61(H) 0.55 - 1.02 MG/DL 01/08/2019 11:06 PM [facility] CALCIUM S/P/B 7.7(L) 8.5 - 10.1 MG/DL 01/08/2019 11:06 PM [facility] BILIRUBIN TOTAL S/P/B 1.0 0.2 - 1.0 MG/DL 01/08/2019 11:06 PM [facility] ALKALINE PHOSPHATASE S/P/B 225(H) 37 - 98 U/L 01/08/2019 11:06 PM [facility] AST 35 15 - 37 U/L 01/08/2019 11:06 PM [facility] ALT 34 13 - 56 U/L 01/08/2019 11:06 PM [facility] TOTAL PROTEIN S/P/B 6.4 6.4 - 8.2 G/DL 01/08/2019 11:06 PM [facility] ALBUMIN S/P/B 3.1(L) 3.4 - 5.0 G/DL 01/08/2019 11:06 PM [facility] ANION GAP 7.9 5.0 - 15.0 MMOL/L 01/08/2019 11:06 PM [facility] Comment:REFERENCE RANGE NOT ESTABLISHED OSMOLALITY (CALC) 303 MOSM/KG 01/08/2019 11:06 PM [facility] Comment:REFERENCE RANGE NOT ESTABLISHED EGFR NON-AFR. AMER. 23(L) >90 ML/MIN/1 .73 M2 01/08/2019 11:06 PM [facility] EGFR AFR. AMER. 26(L) >90 ML/MIN/1 .73 M2 01/08/2019 11:06 PM [facility] GFR NOTES THE ESTIMATED GFR IS CALCULATED USING THE 2009 CKD-EPI EQUATION. THE FOLLOWING CATEGORIES FOR GRADING RENAL FUNCTION ARE RECOMMENDED BY THE INTERNATIONAL SOCIETY OF NEPHROLOGY (KDIGO 2012 CLINICAL PRACTICE GUIDELINE). 01/08/2019 11:06 PM [facility] Comment: G1,NORMAL OR HIGH: >89 ml/min/1.73 m2 G2,MILDLY DECREASED: 60-89 ml/min/1.73 m2 G3A,MILDLY TO MODERATELY DECREASED: 45-59 ml/min/1.73 m2 G3B,MODERATELY TO SEVERELY DECREASED: 30-44 ml/min/1.73 m2 G4,SEVERELY DECREASED: 15-29 ml/min/1.73 m2 G5,KIDNEY FAILURE: <15 ml/min/1.73 m2 01/08/2019 10:1 0 PM CDT Bailee Merchant MD LABORATORY Final Resul t Performing Organization Address [facility] Co de Phone Number [facility] [address] [place] [address], [place] [phone] * TEST URINE (01/08/2019 9:35 PM CDT) PREG TEST NEGATIVE 01/08/2019 9:59 PM CDT [facility] URINE SPECIMEN FROM URETHRA / Unknown 01/08/2019 9:35 PM CDT Bailee Merchant MD URINE ORDERABLES Final Resu lt Performing Organization Address [facility] Co de Phone Number [facility] [address] [place] [address], [place] [phone] * CULTURE URINE (01/08/2019 9:35 PM CDT) SPEC DESCRIPTION URINE CLEAN CATCH 01/08/2019 9:35 PM CDT [facility] SPECIAL REQUESTS NO SPECIAL REQUEST 01/08/2019 9:35 PM CDT [facility] CULTURE RESULT NO GROWTH (< OR = 1,000 CFU/ML) 01/10/2019 2:41 AM CDT [facility] URINE SPECIMEN OBTAINED BY CLEAN CATCH PROCEDURE / Unknown 01/08/2019 9:35 PM CDT 01/08/2019 11:24 PM CDT us Bailee Merchant MD MICROBIOLOGY - [facility] [place] Final Result [facility] [address] [place] [address], [phone] * URINALYSIS (01/08/2019 9:35 PM CDT) COLOR (U) LIGHT YELLOW 01/08/2019 9:56 PM CDT [facility] TRANSPARENCY CLEAR 01/08/2019 9:56 PM CDT [facility] SPECIFIC GRAVITY (U) 1.009 1.002 - 1.035 01/08/2019 9:56 PM CDT [facility] U PH 6.0 5 - 8 01/08/2019 9:56 PM CDT [facility] PROTEIN (U) NEGATIVE NEGATIVE 01/08/2019 9:56 PM CDT [facility] URINE GLUCOSE NEGATIVE NEGATIVE MG/DL 01/08/2019 9:56 PM CDT [facility] KETONES MG/DL (U) NEGATIVE NEGATIVE 01/08/2019 9:56 PM CDT [facility] BILIRUBIN (U) NEGATIVE NEGATIVE 01/08/2019 9:56 PM CDT [facility] BLOOD (U) NEGATIVE NEGATIVE 01/08/2019 9:56 PM CDT [facility] NITRITES NEGATIVE NEGATIVE 01/08/2019 9:56 PM CDT [facility] UROBILINOGEN NORMAL 0 - 1 EU/DL 01/08/2019 9:56 PM CDT [facility] LEUKOCYTES (U) NEGATIVE NEGATIVE 01/08/2019 9:56 PM CDT [facility] RBC/HPF <1 0 - 3 /HPF 01/08/2019 9:56 PM CDT [facility] WBC/HPF NONE 0 - 6 /HPF 01/08/2019 9:56 PM CDT [facility] BACTERIA (U) NONE /HPF 01/08/2019 9:56 PM CDT [facility] SQUAMOUS EPITHELIALS 3 01/08/2019 9:56 PM CDT [facility] URINE SPECIMEN OBTAINED BY CLEAN CATCH PROCEDURE / Unknown 01/08/2019 9:35 PM CDT Bailee Merchant MD URINE ORDERABLES Final Resu lt [facility] [address] [place] [address], [phone] documented in this encounter Visit Diagnoses Diagnosis Abdominal pain- Primary Abdominal pain, unspecified site Chronic kidney disease Chronic kidney disease, unspecified documented in this encounter Administered Medications Inactive Administered Medications - up to 3 most recent administrations Medication Order MAR Action Action Date Dose Rate Site diphenhydrAMINE (BENADRYL) injection 25 mg 25 mg, Intravenous, Once, 1 dose, On Mon01/09/19 at 0045, For IV administration, give no faster than 25 mg/min. Given 01/09/2019 12:53 AM CDT 25 mg famotidine (PEPCID) injection 20 mg 20 mg, Intravenous, Once, 1 dose, On Mon01/08/19 at 2230, IV Push over 2 minutes Given 01/08/2019 11:44 PM CDT 20 mg fentaNYL (SUBLIMAZE) injection 75 mcg 75 mcg, Intravenous, Once, 1 dose, On Mon01/08/19 at 2230, If intravenous (IV) route has been ordered, give over 1-2 minutes. Given 01/08/2019 11:38 PM CDT 75 mcg lactated ringers bolus infusion 1,000 mL 1,000 mL, Intravenous, Administer over 15 Minutes, Once, 1 dose, On Mon01/08/19 at 2230 New Bag 01/08/2019 11:49 PM CDT 1,000 mLs morphine injection 4 mg 4 mg, Intravenous, Once, 1 dose, On Mon01/09/19 at 0045 Given 01/09/2019 12:54 AM CDT 4 mg pantoprazole (PROTONIX) injection 40 mg 40 mg, Intravenous, Once, 1 dose, On Mon01/08/19 at 2230, Reconstitute each 40 mg vial with 10 mL normal saline to a final concentration of 4 mg/mL. Administer intravenously over a period of a least 2 minutes. Given 01/08/2019 11:40 PM CDT 40 mg promethazine (PHENERGAN) injection 12.5 mg 12.5 mg, Intravenous, Once, 1 dose, On Mon01/08/19 at 2230, For IV administration must be used with CAUTION. Dilute dose to 10 ml with NS and inject over 10 minutes through a running IV line. Given 01/08/2019 11:35 PM CDT 12.5 mg documented in this encounter Active and Recently Administered Medications Times are shown in CDT. Scheduled Medication Order 01/07/2019 01/08/2019 01/09/2019 diphenhydrAMINE (BENADRYL) injection 25 mg (COMPLETED) 25 mg, Intravenous, Once, 1 dose, On Mon01/09/19 at 0045, For IV administration, give no faster than 25 mg/min. 0053 (Given - Provid er: Garfield Shoemaker RN) famotidine (PEPCID) injection 20 mg (COMPLETED) 20 mg, Intravenous, Once, 1 dose, On Mon01/08/19 at 2230, IV Push over 2 minutes 2344 (Given - Provider: Garfield Shoemaker, ANSON) fentaNYL (SUBLIMAZE) injection 75 mcg (COMPLETED) 75 mcg, Intravenous, Once, 1 dose, On Mon01/08/19 at 2230, If intravenous (IV) route has been ordered, give over 1-2 minutes. 2338 (Given - Provider: Garfield Shoemaker, ANSON) lactated ringers bolus infusion 1,000 mL (COMPLETED) 1,000 mL, Intravenous, Administer over 15 Minutes, Once, 1 dose, On Mon01/08/19 at 2230 2349 (New Bag - Provider: Garfield Shoemaker RN) 0135 (Infusion Stop Time - Provider: Garfield Shoemaker, ANSON) morphine injection 4 mg (COMPLETED) 4 mg, Intravenous, Once, 1 dose, On Mon01/09/19 at 0045 0054 (Given - Provid er: Garfield Shoemaker RN) pantoprazole (PROTONIX) injection 40 mg (COMPLETED) 40 mg, Intravenous, Once, 1 dose, On Mon01/08/19 at 2230, Reconstitute each 40 mg vial with 10 mL normal saline to a final concentration of 4 mg/mL. Administer intravenously over a period of a least 2 minutes. 2340 (Given - Provider: Garfield Shoemaker, ANSON) promethazine (PHENERGAN) injection 12.5 mg (COMPLETED) 12.5 mg, Intravenous, Once, 1 dose, On Mon01/08/19 at 2230, For IV administration must be used with CAUTION. Dilute dose to 10 ml with NS and inject over 10 minutes through a running IV line. 233 (Given - Provider: Garfield Shoemaker RN) documented in this encounter Care Teams Infection Control Nurse Relationship Specialty Start Date End Date Hermes Ramirez III, MD [address] [place] [address] PCP - General FAMILY PRACTICE 06/20/17 documented as of this encounter
--- OUTSIDE RECORDS SUMMARY | 2024-03-20 11:55 | XMS_ITS | Encounter Summary ---
Author Organization [facility] Address [address] [place] [address]. [place] [address] [place] [address] Care Team Providers Care Cocoa Butter Filter Operator Name Role Phone Ashley ZUNIGA MD, Hermes Perez Primary Care Provid er Encounter Details Date Type Department Care Team (Late st Contact Info) Description 04/22/2018 Abstract [facility] [address] [facility] [place] [place] [address] Zane Marie, DO 1 [place] [address] Social History Tobacco Use Types Packs/Day Years Used Date Smoking Tobacco: Every Day Cigarettes 0.5 15 Smokeless Tobacco: Never Alcohol Use Standard Drinks/Week Comments No 0 (1 standard drink = 0.6 oz pur e alcohol) Comments No Sex and Gender Information Value Date Recorded Sex Assigned at Not on file Legal Sex Female 9:15 PM AUDITING CODER Gender Identity Not on file Sexual Orientation Not on file documented as of this encounter Plan of Treatment Not on file documented as of this encounter Visit Diagnoses Diagnosis Migraine without status migrainosus, not intractable Migraine, unspecified, without mention of intractable migraine without mention of status migrainosus documented in this encounter Care Teams Cocoa Butter Filter Operator Relationship Specialty Start Date End Date Hermes Ramirez III, MD [address] [facility] [address] [place] [address] PCP - General FAMILY PRACTICE 06/20/17 documented as of this encounter
--- OUTSIDE RECORDS SUMMARY | 2024-03-20 11:55 | XMS_ITS | Encounter Summary ---
Author Organization [facility] Address [address] [place] [address]. [place] [address] [place] [address] Care Team Providers Care Career Development Manager Name Role Phone Ashley ZUNIGA MD, Hermes Perez Primary Care Provid er Encounter Details Date Type Department Care Team (Late st Contact Info) Description 04/29/2018 Abstract [place] [facility] [address] [facility] [address] Zane Marie, DO 1 [place] [address] Social History Tobacco Use Types Packs/Day Years Used Date Smoking Tobacco: Every Day Cigarettes 0.5 15 Smokeless Tobacco: Never Alcohol Use Standard Drinks/Week Comments No 0 (1 standard drink = 0.6 oz pur e alcohol) Comments No Sex and Gender Information Value Date Recorded Sex Assigned at Not on file 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
--- OUTSIDE RECORDS SUMMARY | 2024-03-20 11:55 | XMS_ITS | Encounter Summary ---
Author Organization [facility] Address [address] [place] [address]. [place] [address] [place] [address] Care Team Providers Care Supervisor Publications Name Role Phone Ashley ZUNIGA MD, Hermes Perez Primary Care Provid er Encounter Details Date Type Department Care Team (Late st Contact Info) Description 03/05/2018 Abstract [place] [facility] [address] [facility] [place] [address] Ziyad Hu MD [address] [place] [address] Social History Tobacco Use Types Packs/Day Years Used Date Smoking Tobacco: Every Day Cigarettes 0.5 15 Smokeless Tobacco: Never Alcohol Use Standard Drinks/Week Comments No 0 (1 standard drink = 0.6 oz pur e alcohol) Comments No Sex and Gender Information Value Date Recorded Sex Assigned at Not on file 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
--- OUTSIDE RECORDS SUMMARY | 2024-03-20 11:55 | XMS_ITS | Encounter Summary ---
Author Organization [facility] Address [address] [place] [address]. 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 Gender Identity Not on file Sexual Orientation Not on file documented as of this encounter Last Filed Vital Signs Vital Sign Reading Time Taken Comments Blood Pressure 138/86 11/02/2018 3:47 PM CDT Pulse 110 11/02/2018 3:47 PM CDT Temperature 36.9 ??C (98.5 ??F) 11/02/2018 3:47 PM CD T Respiratory Rate 18 11/02/2018 3:47 PM CDT Oxygen Saturation 100% 11/02/2018 3:47 PM CDT Inhaled Oxygen Concentration - - Weight 72.6 kg (160 lb) 11/02/2018 3:47 PM CDT Height 157.5 cm (5' 2 ) 11/02/2018 3:47 PM CDT Body Mass Index 29.26 11/02/2018 3:47 PM CDT documented in this encounter Discharge Instructions * Attachments The following attachments cannot be sent through Care Everywhere. * Migraine Headache Discharge Instructions (Turkish) documented in this encounter Medications at Time of Discharge butorphanol 10 MG/ML nasal spray by Nasal route every 4 (four) hours as needed. 1 pantoprazole EC (PROTONIX) 40 MG tablet Take 1 tablet (40 mg total) by mouth daily. 30 tablet 10/29/2018 9 SODIUM BICARBONATE 650 MG tablet TAKE 2 TABLETS BY MOUTH 3 TIMES A DAY DIRECTED 180 tablet 1 10/22/2018 9 tacrolimus (PROGRAF) 1 MG capsule Take 1 tablet by mouth 2 (two) times daily. 02/06/2017 3 tacrolimus 1 MG capsule Take 2 mg by mouth 2 (two) times daily. 9 documented as of this encounter ED Notes * Merary Ramirez RN - 11/02/2018 5:55 PM CDT PT STATES FEELING BETTER. PT STATES READY TO GO HOME. * Merary Ramirez RN - 11/02/2018 4:45 PM CDT PT REQUESTING SOMETHING FOR NAUSEA, STATES PHENERGAN WORKS BEST FOR ME. DR. MARIE AWARE. * Merary Ramirez RN - 11/02/2018 4:41 PM CDT PT REFUSES TYLENOL AND REGLAN. OTHER MEDICATIONS GIVEN ORDERED. * Merary Ramirez RN - 11/02/2018 4:40 PM CDT PT AWARE THAT NO NEW ORDERS RECEIVED BY DR. MARIE. PT REQUESTING IV ATIVAN INSTEAD OF PO VALIUM. PT STATES I AM JUST WORRIED ABOUT MY LIVER METABOLIZING THE VALIUM. DR. PATEL AWARE, NO NEW ORDERSRECEIVED. * Merary Ramirez RN - 11/02/2018 4:38 PM CDT RN COAT ROOM ATTENDANT SPOKE WITH DR. MARIE ABOUT PT REQUEST TO GET SAME MEDICATIONS SHE RECEIVED ON HER LAST VISIT. DR. MARIE GIVES NO NEW ORDERS. * Merary Ramirez RN - 11/02/2018 4:35 PM CDT RN COAT ROOM ATTENDANT IN PT ROOM STARTING IV. PT ASKING WHAT MEDICATIONS SHE IS GETTING. PT INFORMED OF MEDICATIONS THAT DR. MARIE HAS ORDERED. PT STATES I DON'T WANT THE REGLAN, IT MAKES ME FEEL LIKE I AM CRAWLING OUT OF MY SKIN . PT STATES CAN'T HE JUST GIVE ME WHAT THEY GAVE ME THE LAST TIME I WAS HERE. INFORMED PT THAT RN COAT ROOM ATTENDANT WOULD SPEAK TO DR. MARIE. * Modesto Marie DO - 11/02/2018 4:09 PM CDT Chief Complaint Chief Complaint Patient presents with ??? Headache History of Present Illness I, Jessica Lopez, acting as a scribe, am personally taking down the notes in the presence of Dr. Modesto Marie DO. Take no action on this note until reviewed and authenticated by the physician. Patient is a 38 year old female with a PMHx of migraines presenting to the ED seeking evaluation for a headache onset x1 days ago. Patient states that she has been experiencing a headache that is worsened with light and sound. She mentions taking Stadol that she is prescribed for her migraines but it is not alleviating her pain. Patient reports that the headache is causing her to become nauseated and vomit. She notes that she is unable to sleep due to the pain. Patient mentions that she has been stressed lately due to a in the family and going through a divorce. She reports that she is usually given Nubain, Morphine, or Dilaudid for her pain which are the only medications that relieveher symptoms. Patient denies fever, chills, diarrhea, chest pain, shortness of breath, cough, rhinorrhea, sore throat, abdominal pain, trauma or injury to area of complaint, back or neck pain, changes in vision/hearing/speech/bladder or bowel habits/eating or drinking habits. Patient denies any pertinent past medical history or taking any medication for pain relief. Patient is in otherwise baseline state of health and all other review of systems negative upon review. History provided by: Patient Medical History ALLERGIES: Allergies Allergen Reactions ??? Aspirin Other (see comment) C ??? Erythromycin Unknown ??? Morphine And Related Unknown ??? Toradol [Ketorolac Tromethamine] Other (see comment) KIDNEY MEDICATIONS: Prior to Admission medications Medication Sig Start Date End Date Taking? Authorizing Provider butorphanol 10 MG/ML nasal spray Yes Doc Abstract SODIUM BICARBONATE 650 MG tablet TAKE 2 TABLETS BY MOUTH 3 TIMES A DAY DIRECTED 10/22/18 Yes Shimon Wheatley MD tacrolimus 1 MG capsule Take 2 mg by mouth 2 (two) times daily. Yes Doc Abstract pantoprazole EC (PROTONIX) 40 MG tablet Take 1 tablet (40 mg total) by mouth daily. 10/29/18 MD [facility] PAST MEDICAL HISTORY: Past Medical History: Diagnosis [...] Constitutional: Negative. HENT: Negative. Eyes: Positive for photophobia. Respiratory: Negative. Cardiovascular: Negative. Gastrointestinal: Positive for nausea and vomiting. Endocrine: Negative. Genitourinary: Negative. Musculoskeletal: Negative. Skin: Negative. Allergic/Immunologic: Negative. Neurological: Positive for headaches. Hematological: Negative. Psychiatric/Behavioral: Negative. Physical Exam Filed Vitals: 11/02/18 1547 BP: 138/86 Pulse: 110 Resp: 18 Temp: 98.5 ??F (36.9 ??C) TempSrc: Temporal SpO2: 100% Weight: 72.6 kg (160 lb) Height: 5' 2 (1.575 m) Physical Exam Constitutional: She is oriented to person, place, and time. She appears well- developed and well-nourished. HENT: Head: Normocephalic and atraumatic. Eyes: EOM are normal. Pupils are equal, round, [...] and dry. Nursing note and vitals reviewed. Diagnostic Studies / Procedures ELECTROCARDIOGRAMS: No results found for this visit on 11/02/18. LABORATORY STUDIES: No results found for this visit on 11/02/18. IMAGING STUDIES No orders to display ED Course / Medical Decision Making Medications metoclopramide (REGLAN) injection 10 mg (10 mg Intravenous Not Given 11/02/18 1649) acetaminophen (TYLENOL) tablet 1,000 mg (1,000 mg Oral Not Given 11/02/18 1649) diphenhydrAMINE (BENADRYL) injection 50 mg (50 mg Intravenous Given 11/02/18 1642) sodium chloride 0.9% infusion (1,000 mLs Intravenous New Bag 11/02/18 1641) diazepam (VALIUM) tablet 5 mg (5 mg Oral Given 11/02/18 1645) promethazine (PHENERGAN) injection 12.5 mg (12.5 mg Intravenous Given 11/02/18 1709) Current Discharge Medication List Hermes Ramirez III, MD [address] [facility] [address] [facility] [address] In 3 days As needed MDM Number of Diagnoses or Management Options Migraine without status migrainosus, not intractable, unspecified migraine type: established and worsening Risk of Complications, Morbidity, and/or Mortality Presenting problems: moderate Diagnostic procedures: minimal Management options: minimal Patient Progress Patient progress: improved ED Course as of Nov 02 1745MonNov 02, 2018 1744 Reevaluated. She states that she feels much better. She is ready for discharge. [JW] ED Course User Index [JW] Modesto Marie DO Clinical Impression Migraine without status migrainosus, not intractable, unspecified migraine type (Primary) Jessica Sheryl Lopez, 11/02/18, 17:46. Provider Attestation: I,MODESTO MARIE DO attest that I supervised the patient care provided and have reviewed the documentation recorded by the scribe in conjunction with myself for the duration of our concurrent shift. Any documentation I have added that may be in conflict with that documented by the scribe should be considered the documentation of record. Disposition: Discharge Modesto Marie DO 11/02/181745 * Amarilis Hameed RN - 11/02/2018 3:45 PM CDT Migraine onset last night, took Stadol IN, and Ibuprofen. No relief noted, states n/v/d. States these are her typical migraine symptoms. documented in this encounter Plan of Treatment Not on file documented as of this encounter Visit Diagnoses Diagnosis Migraine without status migrainosus, not intractable, unspecified migraine type- Primary documented in this encounter Administered Medications Inactive Administered Medications - up to 3 most recent administrations Medication Order MAR Action Action Date Dose Rate Site diazepam (VALIUM) tablet 5 mg 5 mg, Oral, Once, 1 dose, On Mon11/02/18 at 1630 Given 11/02/2018 4:45 PM CDT 5 mg diphenhydrAMINE (BENADRYL) injection 50 mg 50 mg, Intravenous, Once, 1 dose, On Mon11/02/18 at 1630, For IV administration, give no faster than 25 mg/min. Given 11/02/2018 4:42 PM CDT 50 mg promethazine (PHENERGAN) injection 12.5 mg 12.5 mg, Intravenous, Once, 1 dose, On Mon11/02/18 at 1715, For IV administration must be used with CAUTION. Dilute dose to 10 ml with NS and inject over 10 minutes through a running IV line. Given 11/02/2018 5:09 PM CDT 12.5 mg sodium chloride 0.9% infusion at 250 mL/hr, Intravenous, Once, 1 dose, On Mon11/02/18 at 1630 New Bag 11/02/2018 4:41 PM CDT 1,000 mLs 250 mL/hr documented in this encounter Active and Recently Administered Medications Times are shown in CDT. Scheduled Medication Order 10/31/2018 11/01/2018 11/02/2018 acetaminophen (TYLENOL) tablet 1,000 mg 1,000 mg, Oral, Once, 1 dose, On Mon11/02/18 at 1630, Maximum dose of acetaminophen is 4000 mg from all sources in 24 hours. 1649 (Not Given - Pr ovider: Merary Ramirez RN - Reason: Patient/family declined) diazepam (VALIUM) tablet 5 mg (COMPLETED) 5 mg, Oral, Once, 1 dose, On Mon11/02/18 at 1630 1645 (Given - Provid er: Merary Ramirez RN) diphenhydrAMINE (BENADRYL) injection 50 mg (COMPLETED) 50 mg, Intravenous, Once, 1 dose, On Mon11/02/18 at 1630, For IV administration, give no faster than 25 mg/min. 164 (Given - Provid er: Merary Ramirez RN) metoclopramide (REGLAN) injection 10 mg 10 mg, Intravenous, Once, 1 dose, On Mon11/02/18 at 1630, Administer IV over 1-2 minutes 164 (Not Given - Pr ovider: Merary Ramirez RN - Reason: Patient/family declined) promethazine (PHENERGAN) injection 12.5 mg (COMPLETED) 12.5 mg, Intravenous, Once, 1 dose, On Mon11/02/18 at 1715, For IV administration must be used with CAUTION. Dilute dose to 10 ml with NS and inject over 10 minutes through a running IV line. 1709 (Given - Provid er: Merary Ramirez RN) sodium chloride 0.9% infusion (COMPLETED) at 250 mL/hr, Intravenous, Once, 1 dose, On Mon11/02/18 at 1630 1641 (New Bag - Prov ider: Merary Ramirez RN)1749 (Infusing on Discharge from Facility - Provider: Merary Ramirez RN) documented in this encounter Care Teams Pipe Line Repairer Relationship Specialty Start Date End Date Hermes Ramirez III, MD [address] [facility] 105 [place] [address] PCP - General FAMILY PRACTICE 06/20/17 documented as of this encounter
--- OUTSIDE RECORDS SUMMARY | 2024-03-20 11:55 | XMS_ITS | Encounter Summary ---
Author Organization [facility] Address [address] [place] [address]. [place], [place] [address] [place] [address] Care Team Providers Care Lumber Straightener Name Role Phone Ashley ZUNIGA MD, Hermes Perez Primary Care Provid er Encounter Details Date Type Department Care Team (Latest Contact Info) Description 05/14/2018 Abstract [facility] , Generic ConversionMD Social History Tobacco Use Types Packs/Day Years Used Date Smoking Tobacco: Every Day Cigarettes 0.5 15 Smokeless Tobacco: Never Alcohol Use Standard Drinks/Week Comments No 0 (1 standard drink = 0.6 oz pur e alcohol) Comments No Sex and Gender Information Value Date Recorded Sex Assigned at Not on file Legal Sex Female 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 Crook in [place] on 05/09/18. They were wanting to place pt on Bactrim for external otitis with a cyst with coverage for MRSA. They wanting recommendations regarding pt's kidney function. Pt has not had labs done since her last visit with us. Dr. Mathew was contacted. The importance of keeping her next scheduled follow up stressed. He would like her have her prior to labs done now and has suggested that Dr. Crook re check a BMP half way thru the antibiotic. Dr Mathew has authorized renal dosing, Bactrim single strength one tab daily for as many days as they feel necessary. Signatures Electronically signed by : Netta Saab, ; May 14 2018 1:52PM ENGAGEMENT DIRECTOR (Author) documented in this encounter Plan of Treatment Not on file documented as of this encounter Visit Diagnoses Not on filedocumented in this encounter Care Teams Lumber Straightener Relationship Specialty Start Date End Date Hermes Ramirez III, MD [address] [facility] 105 [place] [address] PCP - General FAMILY PRACTICE 06/20/17 documented as of this encounter
--- OUTSIDE RECORDS SUMMARY | 2024-03-20 11:56 | XMS_ITS | Encounter Summary ---
Author Organization [facility] Address [address] [place] [address]. [place], [place] [address] [place] [address] Care Team Providers Care Grocery Checker Name Role Phone Ashley ZUNIGA MD, Hermes Perez Primary Care Provid er Encounter Details Date Type Department Care Team (Latest Contact Info) Description 08/07/2017 Abstract [facility] Shimon Wheatley MD Social History Tobacco Use Types Packs/Day Years Used Date Smoking Tobacco: Every Day Cigarettes 0.5 15 Alcohol Use Standard Drinks/Week Comments No 0 (1 standard drink = 0.6 oz pur e alcohol) Comments No Sex and Gender Information Value Date Recorded Sex Assigned at Not on file 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
--- OUTSIDE RECORDS SUMMARY | 2024-03-20 11:56 | XMS_ITS | Encounter Summary ---
Author Organization [facility] Address [address] [place] [address]. [place] [address] [place] [address] Care Team Providers Care Director Clinical Applications Name Role Phone Ashley ZUNIGA MD, Hermes Perez Primary Care Provid er Encounter Details Date Type Department Care Team (Latest Contact Info) Description 08/08/2017 Abstract [facility] Murphy Mathew MD [address] [place] [address] Social History Tobacco Use Types Packs/Day Years Used Date Smoking Tobacco: Every Day Cigarettes 0.5 15 Alcohol Use Standard Drinks/Week Comments No 0 (1 standard drink = 0.6 oz pur e alcohol) Comments No Sex and Gender Information Value Date Recorded Sex Assigned at Not on file Legal Sex Female 9:15 PM AUDIT SPEC Gender Identity Not on file Sexual Orientation Not on file documented as of this encounter Last Filed Vital Signs Vital Sign Reading Time Taken Comments Blood Pressure 133/85 08/08/2017 2:37 PM CDT Pulse 91 08/08/2017 2:37 PM CDT Temperature - - Respiratory Rate - - Oxygen Saturation - - Inhaled Oxygen Concentration - - Weight 71.9 kg (158 lb 8.2 oz) 08/08/2017 2:37 P M CDT Height 157.5 cm (5' 2 ) 08/08/2017 2:37 PM CDT Body Mass Index 28.99 08/08/2017 2:37 PM CDT documented in this encounter Progress Notes * Murphy Mathew MD - 08/08/2017 2:30 PM CDT Chief Complaint 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 She has been [facility] to [facility] in [place]. She reports doing well. She takes Prograf regularly. She denies diarrhea. Denies abdominal pain. She has 2 children age 16 and 5. Her appetite is good. Shehas no shortness of breath. Review of Systems See HPI for pertinent [...] alcohol consumption (V49.89) (Z78.9) Current Meds 1. Ativan 0.5 MG Oral Tablet; TAKE ONE TABLET NEEDED; Therapy: (Recorded:[id number]) to Recorded 2. Cymbalta 20 MG Oral Capsule Delayed Release Particles; TAKE 2 CAPSULES DAILY; Therapy: (Recorded:[id number]) to Recorded 3. PNV Plus Multivitamin 27-1 MG Oral Tablet; TAKE 1 TABLET DAILY; Therapy: (Recorded:08Aug2017) to Recorded 4. Prograf 1 MG Oral Capsule; TAKE 2 CAPSULE Twice daily; Therapy: (Recorded:[id number]) to Recorded 5. Sodium Bicarbonate 650 MG Oral Tablet; TAKE 2 TABLETS BY MOUTH 3 TIMES A DAY DIRECTED; Therapy: [id number] to (Evaluate:12Aug2017) Requested for: 13Feb2017; Last Rx:13Feb2017 Ordered Allergies 1. Aspirin TABS 2. Codeine Derivatives 3. Erythromycin Derivatives 4. Toradol Vitals Recorded: 08Aug2017 02:37PM Temperature 99.5 F Heart Rate 91 Systolic 133, RUE, Sitting Diastolic 85, RUE, Sitting Height 157.48 cm Weight 71.9 kg BMI Calculated 28.99 BSA Calculated 1.73 Physical Exam Constitutional General appearance: Normal. Neck Neck: Normal. Pulmonary Auscultation of lungs: Normal. Cardiovascular Auscultation of heart: Normal. Examination of extremities for edema and/or varicosities: No edema. Abdomen Abdomen: Normal. Lymphatic Palpation of lymph nodes in neck: Normal. Psychiatric Orientation to person, place, and time: Normal. Results/Data CIKDA-UA In Office 08Aug2017 02:49PM Murphy Mathew Test Name Result Flag Reference Glucose Negative Ketones Negative Specific [place] 1.015 pH 7.0 Blood Trace-Intact Nitrates Negative Leukocytes Negative Protein Low Creatinine 300mg/g Protein/Creatinine (P/C) Ratio 150mg/g Abnormal August 07. BUN 19 creatinine 2.4 bicarbonate 26 calcium 8.8 hemoglobin 11.5 Assessment 1. Chronic kidney disease (585.9) (N18.9) 2. Transplanted liver (V42.7) (Z94.4) Plan Chronic kidney disease 1. CIKDA-UA In Office; Status:Complete; Done: 08Aug2017 02:49PM Performed:In Office; Due:07Sep2017; Last Updated By:Lorena Dalton; 08/08/2017 2:51:13 PM;Ordered; For:Chronic kidney disease; Ordered By:Murphy Mathew; Discussion/Summary #1. 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 Baseline creatinine 2.4. I have reviewed her laboratory with the patient in detail. Her kidney function remains stable. I have advised patient to follow with her liver transplant program regularly. #2. Metabolic acidosis. Continue sodium bicarbonate 1300 mg t.i.d. #3. History of thrombocytopenia. I have advised patient to follow with hematology. RTC. 6 months. JODIE. Poretr Ramirez M.D. Signatures Electronically signed by : Murphy Mathew M.D.; Aug 09 2017 10:52AM AUDIT SPEC (Author) documented in this encounter Plan of Treatment Not on file documented as of this encounter Procedures Procedure Name Priority Date/Time Associated Diagnosis Comments URINALYSIS AUTO DIP Routine 08/08/2017 2 :49 PM CDT documented in this encounter Results * URINALYSIS AUTO DIP (08/08/2017 2:49 PM CDT) GLUCOSE Negative [facility] T O EPIC CONVERSION KETONE (U) Negative [facility] TO EPIC CONVERSION SPECIFIC GRAVITY (U) 1.015 [facility] TO EPIC CONVERSION PH ARTERIAL 7.0 [facility] TO EPIC CONVERSION BLOOD (U) Trace-Intact [facility] P TO EPIC CONVERSION NITRITES Negative [facility] T O EPIC CONVERSION LEUKOCYTES (U) Negative [facility] OUP TO EPIC CONVERSION PROTEIN Low [facility] T O EPIC CONVERSION CREATININE S/P/B 300mg/g [facility] TO EPIC CONVERSION PROTEIN/CREATI NINE RATIO MG/G 150mg/g Abnormal [facility] TO EPIC CONVERSION 08/08/2017 2:49 PM CDT 08/08/2017 2:49 PM CDT us Murphy Mathew MD URINE ORDERABLES Final Result [facility] TO EPIC CONVERSION documented in this encounter Visit Diagnoses Not on filedocumented in this encounter Care Teams Director Clinical Applications Relationship Specialty Start Date End Date Hermes Ramirez III, MD [address] [facility] [address] [place] [address] PCP - General FAMILY PRACTICE 06/20/17 documented as of this encounter
--- OUTSIDE RECORDS SUMMARY | 2024-03-20 11:56 | XMS_ITS | Encounter Summary ---
Author Organization [facility] Address [address] [place] [address]. [place], [place] [address] [place] [address] Care Team Providers Care Waterproof Bag Sewer Name Role Phone Ashley ZUNIGA MD, Hermes Perez Primary Care Provid er Encounter Details Date Type Department Care Team (Latest Contact Info) Description 12/14/[address] 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 Ramirez calls stating their MD would like to place pt on Augmentin 875mg BId for 10 days for and ear infection with drainage. Dr. Mathew has authorized this and Tracy wasnotified. Signatures Electronically signed by : Netta Saab, ; Dec 14 2017 4:11PM ACCESS CONTROL SPECIALIST (Author) documented in this encounter Plan of Treatment Not on file documented as of this encounter Visit Diagnoses Not on filedocumented in this encounter Care Teams Waterproof Bag Sewer Relationship Specialty Start Date End Date Hermes Ramirez III, MD [address] [address] PCP - General FAMILY PRACTICE 06/20/17 documented as of this encounter
--- OUTSIDE RECORDS SUMMARY | 2024-03-20 11:56 | XMS_ITS | Encounter Summary ---
Author Organization [facility] Address [address] [place] [address]. [place] [address] [place] [address] Care Team Providers Care Panel Edge Sealer Name Role Phone Ashley ZUNIGA MD, Hermes Perez Primary Care Provid er Encounter Details Date Type Department Care Team (Latest Contact Info) Description 11/15/2017 Abstract [facility] Ar Laws MD [address] [place] [address] [address] [place], [place] [address] Social History Tobacco Use Types Packs/Day Years Used Date Smoking Tobacco: Every Day Cigarettes 0.5 15 Smokeless Tobacco: Never Alcohol Use Standard Drinks/Week Comments No 0 (1 standard drink = 0.6 oz pur e alcohol) Comments No Sex and Gender Information Value Date Recorded Sex Assigned at Not on file 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 Abnormal Pap Smear - Lgsil ? Cervical Dysplasia ? Condyloma Acuminatum ? History of Vulvar Dysplasia ? Liver Transplant Recipient REASON FOR VISIT Gynecologic consultation Referral from Dr. Pruitt for condyloma lasering. HISTORY OF PRESENT ILLNESS Elsa Browne is a 37 year old female. ?? Feeling fine. CURRENT MEDICATION ? Aldara 5% External Cream as directed appy to area 3 times a week at hs. Max 16 weeks., 30 days, 1refills ? Cyclobenzaprine HCl 10MG Oral Tablet May take 3 times daily as needed, 30 days, 0 refills ? Prograf 1MG Oral Capsule, conventional 2 twice a day 0 days, 0 refills ? Sodium Bicarbonate 650MG Oral Tablet 2 three times a day 0 days, 0 refills ? Zomig 5MG Nasal Solution 0 days, 0 refills PAST MEDICAL/SURGICAL HISTORY Reported: Last pap smear date 05/19/2017 result: abnormal ASCUS with HPV. Surgical / Procedural: Surgical / procedural history Liver Transplant 1992 double hernia 1986 [place] procedure 1982. Prior surgery Left breast fibroadenoma. Pt has a history of VIN3 and IFEANYI 3. Has seen in [place] in the past. Recent Hospitalizatiion for Pancreatitis 09/2016. : 3 and para 2. Liver transplant 1992. Procedural: ? Thermal endometrial ablation Surgical: ? Tubal ligation 05/22/2012 SOCIAL HISTORY Behavioral: Cigarette smoking and smoking status: Current everyday smoker. Marital: Currently . Sexual: Sexually active. Pt is and has 2 children. ALLERGIES ? Aspirin ? Rocael-Tab (Erythromycin) ? Tetracaine HCl ? Toradol (Ketorolac) ? Tylenol #3 (Acetaminophen + Codeine) Reaction: Skin Rashes, Hives PHYSICAL FINDINGS General Appearance: ?? Well developed. ?? Well nourished. ?? In no acute distress. Neck: Thyroid: ?? Showed no abnormalities. Lymph Nodes: ?? Supraclavicular lymph nodes were not enlarged. ?? Axillary lymph nodes were not enlarged. Lungs: ?? Clear to auscultation. Cardiovascular: Heart Rate And Rhythm: ?? Normal. Murmurs: ?? No murmurs were heard. Back: ?? No right costovertebral angle tenderness. ?? No left costovertebral angle tenderness. Abdomen: Palpation: ?? Abdominal non-tender. ?? No mass was palpated in the abdomen. Liver: ?? Not enlarged. Spleen: ?? Not enlarged. Genitalia: External: ?? Genitalia showed no abnormalities Deferred. ASSESSMENT Dx; Vulvar Condyloma. DISCUSSED Oriented about different treatment modalities including TCA, Aldara, etc and surgical removal (coldknife, Laser). She wanted Laser removal because that was offered to her so I explained I am not trained for Laser. Will referred this patient to Dr. Washington. PLAN Referred to Dr. Washington for Laser ablation/removal. CARE TEAM Hermes Ramirez Primary Care Ar Laws MD Electronically signed by: Ar Laws Date: 11/16/2017 10:47 documented in this encounter Plan of Treatment Not on file documented as of this encounter Visit Diagnoses Not on filedocumented in this encounter Care Teams Panel Edge Sealer Relationship Specialty Start Date End Date Hermes Ramirez III, MD [facility] [address] [address] PCP - General FAMILY PRACTICE 06/20/17 documented as of this encounter
--- OUTSIDE RECORDS SUMMARY | 2024-03-20 11:56 | XMS_ITS | Encounter Summary ---
Author Organization [facility] Address [address] [place] [address]. [place], [place] [id number] [place] [id number] Care Team Providers Care Panel Machine Operator Name Role Phone Ashley ZUNIGA MD, Hermes Perez Primary Care Provid er Reason for Visit * Reason Comments Migraine Encounter Details Date Type Department Care Team (Late st Contact Info) Description 07/20/2017 11:08 AM CDT - 07/20/2017 12:30 PM CDT Emergency [facility] Emergency [address] [place] [address] Letha Mitchell, LEWIS [address] [address] Migraine Discharge Disposition: Left Against Medical Advice Social History Tobacco Use Types Packs/Day Years Used Date Smoking Tobacco: Every Day Cigarettes 0.5 15 Alcohol Use Standard Drinks/Week Comments No 0 (1 standard drink = 0.6 oz pur e alcohol) Comments No Sex and Gender Information Value Date Recorded Sex Assigned at Not on file 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 Gender Identity Not on file Sexual Orientation Not on file documented as of this encounter Last Filed Vital Signs Vital Sign Reading Time Taken Comments Blood Pressure 127/84 07/20/2017 10:49 AM CDT Pulse 91 07/20/2017 10:49 AM CDT Temperature 37 ??C (98.6 ??F) 07/20/2017 10: 49 AM CDT Respiratory Rate 18 07/20/2017 10:4 9 AM CDT Oxygen Saturation 100% 07/20/2017 10: 49 AM CDT Inhaled Oxygen Concentration - - Weight 71.2 kg (156 lb 15.5 oz) 018 10:49 AM CDT Height 157.5 cm (5' 2 ) 07/20/2017 10:4 9 AM CDT Body Mass Index 28.71 07/20/2017 10:49 AM CDT documented in this encounter Discharge Instructions * Discharge Instructions* Letha Mitchell, METEOROLOGY FACULTY MEMBER - 07/20/2017 12:26 PM CDT Images from the original note were not included. Thank you for choosing [facility]. I am glad to care for you and be part of your health care team. I encourage follow up with a primary care doctor. As discussed, it is important that you followup with your health care provider for further questions and examination as well as possible further testing and therapy if this is needed. If you have any new symptoms or increase in symptoms, return to the Emergency Department or see your primary care physician. If you receive a survey please take the time to fill it out if you were pleased with your services today. Patient Education Headache Discharge Instructions, Adult About this topic Headache is the word used to describe aching or pain in the head. There are many types of headaches. Some of them are: ?? Headaches that are from an illness or injury. These may be caused from a virus or other infection. They can also happen when you do not get enough to drink. ?? Tension headaches are not often bad enough to keep you from doing daily activities. You may feeltightness in the muscles around the head, neck, and shoulders. ?? Migraine headaches often start off mild and get worse. You are often not able to do normal activities. This kind of headache may also have other signs with it like throwing up and making it hard to be around light and sounds. ?? Cluster headaches happen again and again. The pain is burning, sharp, and keeps hurting. The pain may happen behind or around your eye. It can also be on one side of your face. Signs can include astuffed, runny nose and red, watery eyes. They can happen because of smoking, heat, and bright lights. Some drugs can also cause this type of headache. ?? A sinus headache is often thought to be a migraine. The pain is dull and throbbing. The pain happens behind the nose, eyes, forehead, and cheekbones. This is often due to swelling of the sinuses (sinusitis). If you have a fever and greenish yellow thick liquid from your nose, you may have a sinus headache Not all headaches need to be checked by a doctor. Some kinds may be a sign of a serious problem. Care for headaches will depend on what is causing them. What care is needed at home? ?? Ask your doctor what you need to do when you go home. Make sure you ask questions if you do not understand what the doctor says. This way you will know what you need to do. ?? Write down things about your headaches. Write down when the headache happens. Include what you were doing before it happened. Write down what you ate before the headache and how much sleep you got. This will help you learn what might be causing your headaches. Then, you can learn how to avoid them. ?? Place an ice pack or a bag of frozen peas wrapped in a towel over your head. Never put ice righton the skin. Do not leave the ice on more than 10 to 15 minutes at a time. ?? Lie down in a quiet, dark room. ?? Get enough sleep. Sleeping too much or too little may cause headache. ?? Do not drive or run machinery if your eyesight changes when you have a headache. ?? Do not make any big decisions until your headache goes away. ?? Do not spend too much time in front of screens, like watching TV, using computers, and playing video games. What follow-up care is needed? ?? Your doctor may ask you to make visits to the office to check on your progress. Be sure to keep these visits. ?? Your doctor may want to do tests if the headache comes back. The results will help the doctor understand what kind of headache you have and what causes it. Together you can make a plan for more care. What drugs may be needed? Your doctor may order drugs based on the type of headache you have. The doctor may order drugs to: ?? Help with pain ?? Prevent or stop the headache ?? Treat upset stomach and throwing up ?? Treat high blood pressure ?? Treat low mood ?? Treat hormonal imbalance Will physical activity be limited? Headaches may be painful enough to stop you from doing your normal activities. The pain may make you stay at home from work or school. What changes to diet are needed? ?? Make sure you eat at regular times. Do not skip meals. ?? Drink lots of fluids. This will help prevent a headache. ?? Do not drink too much caffeine. Too much may start your headache. What problems could happen? Headache may be part of a more serious health problem. What can be done to prevent this health problem? ?? Know the things that may start your headache. ?? Go to sleep and get up at the same time every day. ?? Take drugs to keep from getting headaches. Your doctor may give you drugs to lower how long the headache lasts. This can also help lower how long you will have a headache. ?? Avoid stress. Learn how to cope with things that cause stress. Try to relax. ?? Avoid alcohol and smoking. These can make headaches worse. ?? Hold the phone rather than resting it on your shoulder, or use a headset. When do I need to call the doctor? ?? Headache after a head injury. Go to the ER right away. ?? Fever of 100.4??F (38??C) or higher, chills ?? Change in your headaches. These include headaches that wake you up, headaches happen more often or get worse, headaches are different than before, headache is very bad or happens fast. ?? Headache lasts more than a few days or it is not made better by drugs and other care ?? Throwing up ?? Change in how you act ?? Hard to move your neck ?? Pain is worse when you lie down ?? Blurred eyesight and this makes you sick ?? Trouble sleeping ?? Passing out or fainting Teach Back: Helping You Understand The Teach Back Method helps you understand the information we are giving you. The idea is simple. After talking with the staff, tell them in your own words what you were just told. This helps to makesure the staff has covered each thing clearly. It also helps to explain things that may have been abit confusing. Before going home, make sure you are able to do these: ?? I can tell you about my condition. ?? I can tell you what may help ease my pain. ?? I can tell you what I will do if there is a change in my headaches. Where can I learn more? [employer] [facility] http://www.aafp.org/afp/topicModules/viewTopicModule.htm?topicModuleId=10 National Headache Foundation http://www.headaches.org/education/Tools_for_Sufferers/Headache_-_Frequently_Ask ed_Questions National [place] of Neurological Disorders and Stroke http://www.ninds.nih.gov/disorders/headache/headache.htm NHS Choices http://www.nhs.uk/conditions/headache/Pages/Introduction.aspx Last Reviewed Date 2015-08-10 Consumer Information Use and Disclaimer This information is not specific medical advice and does not replace information you receive from your health care provider. This is only a brief summary of general information. It does NOT include all information about conditions, illnesses, injuries, tests, procedures, treatments, therapies, discharge instructions or life-style choices that may apply to you. You must talk with your health care provider for complete information about your health and treatment options. This information should not be used to decide whether or not to accept your health care provider???s advice, instructions or recommendations. Only your health care provider has the knowledge and training to provide advice that is right for you. Copyright Copyright ?? 2018 [employer] and its affiliates and/or licensors. All rights reserved. Patient Education Migraine Headache Discharge Instructions About this topic A migraine is a specific type of headache. All headaches are not migraines. A migraine is caused byabnormal brain activity. It may be due to widening or narrowing of the blood vessels in the head. It may last for a couple of hours or even a few days. There are two types of migraine headaches: ?? Classic migraine or migraine with aura ? It often starts with some problems in your eyesight called auras. You may see spots, dots, or even zigzag lines. An aura is the signal that a migraine is coming. It is followed by a very bad headache on one side of the head. Noise, light, and other activities can make it worse. Sometimes, it comes with upset stomach and throwing up. ?? Common migraine or migraine without aura ? This migraine happens without the signal that the headache is coming. Migraines can be treated with different drugs. Some drugs treat the pain. Other drugs stop the brain activity that causes the migraine. If migraines happen often, drugs that prevent migraines can help. Migraines can be helped by sleep. Stress control like exercise, relaxation, and a regular routineof good nutrition and sleep are all helpful in preventing migraines. Lifestyle and dietary changes may also help you deal with a migraine. What care is needed at home? ?? Ask your doctor what you need to do when you go home. Make sure you ask questions if you do not understand what the doctor says. This way you will know what you need to do. ?? Your doctor may give you drugs to help with the pain. Take them as ordered by your doctor. ?? Your doctor may teach you some ways to help control your migraine like relaxation and exercises. ?? Keep a diary about your headaches. Write down when your headache happens. Write down what you were doing before it happened. Write down any foods or drinks that you had in the last day. This will help you learn what might be causing your headaches. Then, you can learn how to avoid them. ?? Place an ice pack or a bag of frozen peas wrapped in a towel over your head. Never put ice righton the skin. Do not leave the ice on more than 10 to 15 minutes at a time. ?? Using heat may also help. Try using a heating pad on the back of your neck. A warm shower or bath may also relax tight muscles. ?? Avoid bright lights and noise. Rest in a quiet, dark room. Sleep may also help. ?? Drink a caffeinated beverage. Be careful to not drink too much caffeine as this can cause other headaches. ?? Do not make any big decisions until your migraine goes away. ?? If certain drugs your doctor ordered trigger your migraine, your doctor may tell you to stop taking those drugs. What follow-up care is needed? ?? Your doctor may ask you to make visits to the office to check on your progress. Be sure to keep these visits. ?? Your doctor may send you to a specialist called a neurologist. What drugs may be needed? The doctor may order drugs to: ?? Help with pain ?? Relieve the migraine ?? Prevent a migraine attack ?? Treat an upset stomach and throwing up ?? Treat a hormonal problem Will physical activity be limited? ?? Regular exercise can help prevent migraines. If exercise triggers your migraine, talk to your doctor. ?? Do not drive or run machinery until your migraine goes away. What changes to diet are needed? ?? Do not skip or delay meals. Drink 6 to 8 glasses of water each day. This may help prevent migraines. ?? Avoid foods that may trigger the attack. These may include processed, fermented, pickled, or marinated foods. Some of these are baked goods, chocolate, dairy products, nuts, onions, and peanut butter. Others are fruits like avocado, banana, or citrus fruit and meats like leblanc, hot dogs, and cured meats. ?? Limit caffeine intake. You will find that caffeine may help relieve pain. But, too much caffeinemay also trigger an attack. ?? Avoid drinking beer, wine, and mixed drinks (alcohol) if you think this is causing your migraines. ?? Quit smoking. Smoking can worsen your migraine. What problems could happen? ?? Loss of work time or missing school if migraines come often ?? Low mood, worry ?? Poor quality of life ?? Migraines can slightly raise your chances of having a stroke What can be done to prevent this health problem? ?? Some drugs may help prevent migraines. Talk to your doctor about the drugs you may need to take. ?? Keep a sleeping routine. Go to sleep and get up the same time every day. ?? Take note of the things that may trigger your migraine. Learning what they are is very importantto help avoid an attack. ?? Try to keep stress in your life low. Try relaxation exercises or meditation to lower stress. When do I need to call the doctor? ?? Signs of a bad reaction. These include very bad headache beyond the usual; speech, vision, motion problems or loss of balance; headaches are worse when lying down or headaches suddenly starts. Call for emergency help right away. ?? Changes in migraine attacks ?? Migraines that happen more often than 3 times a month ?? You are not feeling better in 2 to 3 days or you are feeling worse Teach Back: Helping You Understand The Teach Back Method helps you understand the information we are giving you. The idea is simple. After talking with the staff, tell them in your own words what you were just told. This helps to makesure the staff has covered each thing clearly. It also helps to explain things that may have been abit confusing. Before going home, make sure you are able to do these: ?? I can tell you about my condition. ?? I can tell you what may help ease my pain. ?? I can tell you what I will do if there is a change in my headaches. Where can I learn more? FamilyDoctor.org http://familydoctor.org/familydoctor/en/diseases-conditions/migraines.html NHS Choices http://www.nhs.uk/Conditions/Migraine/Pages/Causes.aspx The National Migraine Association http://www.migraines.org/disability/index.htm Last Reviewed Date 2015-08-18 Consumer Information Use and Disclaimer This information is not specific medical advice and does not replace information you receive from your health care provider. This is only a brief summary of general information. It does NOT include all information about conditions, illnesses, injuries, tests, procedures, treatments, therapies, discharge instructions or life-style choices that may apply to you. You must talk with your health care provider for complete information about your health and treatment options. This information should not be used to decide whether or not to accept your health care provider???s advice, instructions or recommendations. Only your health care provider has the knowledge and training to provide advice that is right for you. Copyright Copyright ?? 2018 [employer] and its affiliates and/or licensors. All rights reserved. documented in this encounter Medications at Time of Discharge lorazepam (ATIVAN) 0.5 MG tablet Take 1 [...] by mouth 2 (two) times daily. 02/12/2019 documented as of this encounter ED Notes * LEWIS Mitchell - 07/20/2017 12:13 PM CDT Chief Complaint Chief Complaint Patient presents with ??? Migraine History of Present Illness History provided by: Patient Patient is a 36 yr old female who presents to the ED with c/o right sided headache onset x 2 days ago. Pt reports associated mild blurred vision in her right eye and nausea. Pt denies fever, chills, and emesis. Pt reports a hx of migraines which she states ar hormone driven and she also notes she has pain in her RLQ where she thinks she has an ovarian cyst. Pt states the headache is one of her typical headaches and she states she used to be on Topamax but her tobacco grower took her off because it was making her blood too acidic. Pt further notes her son has the flu. Pt reports no alleviating or exacerbating factors. No other hx or symptoms to report. Patient is otherwise in her baseline state of health. Medical History ALLERGIES: Allergies Allergen Reactions ??? Aspirin Other (see comment) C ??? Codeine Itching ??? Toradol [Ketorolac Tromethamine] Other (see comment) KIDNEY MEDICATIONS: Prior to Admission medications Medication Sig Start Date End Date Taking? Authorizing Provider sodium bicarbonate 650 MG tablet Take 1,300 mg by mouth 3 (three) times daily. Doc Abstract tacrolimus 1 MG capsule Take 2 mg by mouth 2 (two) times daily. Doc Abstract PAST MEDICAL HISTORY: Past Medical History: Diagnosis Date ??? Anemia ??? Biliary atresia congenital ??? Chronic kidney disease ??? Thrombocytopenia PAST SURGICAL HISTORY: Past Surgical History: Procedure Laterality Date ??? SECTION ??? INGUINAL HERNIA Bilateral age 5 ??? LIVER TRANSPLANTATION FAMILY HISTORY: Family History Problem Relation Age of Onset ??? Diabetes Neg Hx SOCIAL HISTORY: Social History Substance Use Topics ??? Smoking status: Current Every Day Smoker Packs/day: 0.50 Years: 15.00 ??? Smokeless tobacco: Not on file ??? Alcohol use No Review of Systems Review of Systems Constitutional: Negative. Negative for chills and fever. HENT: Negative. Eyes: Positive for visual disturbance (mild blurred vision in the right eye). Respiratory: Negative. Cardiovascular: Negative. Gastrointestinal: Positive for nausea. Negative for vomiting. Endocrine: Negative. Genitourinary: Negative. Musculoskeletal: Negative. Skin: Negative. Allergic/Immunologic: Negative. Neurological: Positive for headaches (right sided). Hematological: Negative. Psychiatric/Behavioral: Negative. Physical Exam Filed Vitals: 07/20/17 1049 BP: 127/84 Pulse: 91 Resp: 18 Temp: 98.6 ??F (37 ??C) TempSrc: Oral SpO2: 100% Weight: 71.2 kg (156 lb 15.5 oz) Height: 5' 2 (1.575 m) Physical Exam Nursing note and vitals reviewed. General Appearance: No apparent distress. Well developed. Well nourished. Skin: Warm, pink, and dry. No rash. Head: Normocephalic and atraumatic. Eyes: Conjunctiva clear with no scleral icterus or jaundice. PERRL/EOMI. Report: Photophobia Neck: Non-Tender. Supple. Trachea midline. No thyromegaly. No nuchal rigidity. No cervical lymphadenopathy. Chest and Respiratory: Airway patent. Breath sounds equal. Lungs clear to auscultation. No stridor,wheezes, rales, or rhonchi. No accessory muscle use. No respiratory distress. Cardiovascular: Regular rate and rhythm. No murmur,rubs or gallops. Abdominal: Non-Tender. Bowel sounds present. Soft. Non-Distended. No obvious masses or hernias. Norebound, guarding, rigidity. Vascular: Brisk capillary refill. Radial pulses 2+ bilaterally. No edema to BLE. Musculoskeletal: Normal ROM. No deformity Neurologic: Alert and oriented x 3. No gross motor deficits. Report: Speech clear Mental Status: Normal affect. Diagnostic Studies / Procedures ELECTROCARDIOGRAMS: No results found for this visit on 07/20/17. LABORATORY STUDIES: No results found for this visit on 07/20/17. IMAGING STUDIES No orders to display ED Course / Medical Decision Making Is 36-year-old female who presents the emergency department with complaint of migraine headache shestates started yesterday. Patient states that this is a typical migraine for her and that she has taken ibuprofen without improvement in her pain. Patient states that her headache is located on the right side of her head and she is having blurred vision in her right eye along with photophobia and nausea. Discussed with patient treatment modality. She requested no fluid but I advised her that thatis part of my protocol and that I am not willing to deviate from that as it is a recommend /standard treatment of migraine headaches. Patient further states that her headaches are hormone driven and that she is experiencing pain from an ovarian cyst at this time. Critical and common diagnoses were considered and discussed with the patient. The patient's history, physical exam, and ancillary studies were taken into consideration for this patient's treatment. After reviewing the information and discussing the potential outcomes/risks/benefits, the patient's disposition was agreed upon. Staffed with:Dr. Altamirano Clinical Impression Chronic right-sided headache (Primary) Workup Notes Comment By Time 1230: Patient left AMA after being explained the risks including possible neurological events. Voiced understanding ROSE MARIE Mitchell 07/20 1231 Medications - No data to display Discharge Medication List as of 07/20/2017 12:31 PM Hermes Ramirez III, MD [facility] [address] [address] Schedule an appointment as soon as possible for a visit As needed, If symptoms worsen Disposition: LWBS after Triage IWin, attest that this documentation has been prepared under the direction and in the presence of Letha Mitchell NP. 07/20/2017 1:00 PM ILetha NP, personally performed the services described in this documentation. All medical record entries made by the scribe were at my direction and in my presence. I have reviewed the chartand agree that the record reflects my personal performance and is accurate and complete. ROSE MARIE Mitchell 07/20/[id number] Cosigned by Neil Altamirano MD at 07/21/2017 8:34 AM CDT * Marge Grant RN - 07/20/2017 10:47 AM CDT Pt arrives with c/o migraine on and off for a few days. documented in this encounter Plan of Treatment Not on file documented as of this encounter Visit Diagnoses Diagnosis Chronic right-sided headache- Primary documented in this encounter Active and Recently Administered Medications Times are shown in CDT. Scheduled Medication Order 07/18/2017 07/19/2017 07/20/2017 dexamethasone (DECADRON) injection 10 mg 10 mg, Intravenous, Once, 1 dose, On Diana 07/20/17 at 1215, If giving intravenously, administer slowly over 1-4 minutes. 1215 (Canceled Entry - Provider: Automatic Discharge Provider - Comment: Automatically canceled at discontinue of medication order) diphenhydrAMINE (BENADRYL) injection 50 mg 50 mg, Intravenous, Once, 1 dose, On Diana 07/20/17 at 1215, For IV administration, give no faster than 25 mg/min. 1215 (Canceled Entry - Provider: Automatic Discharge Provider - Comment: Automatically canceled at discontinue of medication order) sodium chloride 0.9% bolus infusion SOLN 1,000 mL 1,000 mL, Intravenous, Administer over 15 Minutes, Once, 1 dose, On Diana 07/20/17 at 1215 1215 (Canceled Entry - Provider: Automatic Discharge Provider - Comment: Automatically canceled at discontinue of medication order) documented in this encounter Care Teams Panel Machine Operator Relationship Specialty Start Date End Date Hermes Ramirez III, MD [address] [place] [address] PCP - General FAMILY PRACTICE 06/20/17 documented as of this encounter
--- OUTSIDE RECORDS SUMMARY | 2024-03-20 11:56 | XMS_ITS | Encounter Summary ---
Author Organization [facility] Address [address] [place] [address]. [place] [address] [place] [address] Care Team Providers Care Layout Man Name Role Phone Ashley ZUINGA MD, Hermes Perez Primary Care Provid er Encounter Details Date Type Department Care Team (Late st Contact Info) Description 12/08/2017 Abstract [facility] [address] [facility] [place] [address] Ziyad Hu MD [address] [place] [address] Social History Tobacco Use Types Packs/Day Years Used Date Smoking Tobacco: Every Day Cigarettes 0.5 15 Smokeless Tobacco: Never Alcohol Use Standard Drinks/Week Comments No 0 (1 standard drink = 0.6 oz pur e alcohol) Comments No Sex and Gender Information Value Date Recorded Sex Assigned at Not on file 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
--- OUTSIDE RECORDS SUMMARY | 2024-03-20 11:56 | XMS_ITS | Encounter Summary ---
Author Organization [facility] Address [address] [place] [address]. [place], [place] [address] [place] [id number] Care Team Providers Care Surgical Scrub Tech Name Role Phone Ashley ZUNIGA MD, Hermes Perez Primary Care Provid er Reason for Visit * Reason Comments Headache Encounter Details Date Type Department Care Team (Late st Contact Info) Description 08/17/2017 4:52 PM CDT - 08/17/2017 5:54 PM CDT Emergency [facility] [address] [facility] [place] [address] Mona Galindo, PROFESSIONAL BUILDER [address] [place] [address] Headache Discharge Disposition: Home or Self Care [...] on file 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 Gender Identity Not on file Sexual Orientation Not on file documented as of this encounter Last Filed Vital Signs Vital Sign Reading Time Taken Comments Blood Pressure 140/88 08/17/2017 4:35 PM CDT Pulse 81 08/17/2017 4:35 PM CDT Temperature 37.2 ??C (98.9 ??F) 08/17/2017 4:35 PM CD T Respiratory Rate 18 08/17/2017 4:35 PM CDT Oxygen Saturation 100% 08/17/2017 4:35 PM CDT Inhaled Oxygen Concentration - - Weight 68 kg (150 lb) 08/17/2017 4:35 PM CDT Height 157.5 cm (5' 2 ) 08/17/2017 4:35 PM CDT Body Mass Index 27.44 08/17/2017 4:35 PM CDT documented in this encounter Discharge Instructions * Discharge Instructions* Mona ROSE MARIE Galarza - 08/17/2017 5:44 PM CDT Patient Education Migraine Headaches in Adults The Basics Written by the doctors and editors at [facility] What are migraine headaches???--??Migraine headaches or migraines are a kind of headache that canhappen in adults and children. They are more common in women than in men. Migraines often start offmild and then get worse. What are the symptoms of migraines in adults???--??Symptoms can include: ?Headache - The headache gets worse over several hours and is usually throbbing. It often affects 1side of the head. ?Nausea and sometimes vomiting ?Feeling sensitive to light and noise - Lying down in a quiet, dark room often helps. ?Aura - Some people have something called a migraine aura. An aura is a symptom or feeling that happens before or during the migraine headache. Each person's aura is different, but in most cases the aura affects the vision. You might see flashing lights, bright spots, or zig-zag lines, or lose part of your vision. Or you might have numbness and tingling of the lips, lower face, and fingers of 1hand. Some people hear sounds or have ringing in their ears as part of their aura. The aura usuallylasts a few minutes to an hour and then goes away, but most often lasts 15 to 30 minutes. Women who get migraines with aura usually cannot take control pills. That's because they might increase the risk of stroke. Many people get other symptoms that happen several hours or even a day before the migraine headache. Doctors call these premonitory or prodromal symptoms. They might include yawning, feeling depressed, irritability, food cravings, constipation, or a stiff neck. Is there a test for migraines???--??No. There is no test. But your doctor should be able to tell ifyou have migraines by doing an exam and learning about your symptoms. Should I see a doctor or nurse???--??Yes. If you think you are having migraines, you should talk toyour doctor or nurse. You should also see a doctor or nurse if your migraines get worse or more frequent, or if you have new symptoms. Is there anything I can do to prevent migraines???--??Yes. Some people find that their migraines are triggered by certain things. If you can avoid some of these things, you can lower your chances of getting migraines. You can also keep a headache calendar. In the calendar, write down every time you have a migraineand what you ate and did before it started. That way you can find out if there is anything you should avoid eating or doing. You can also write down what medicine you took and whether or not it helped. Common migraine triggers include: ?Stress ?Hormonal changes ?Skipping meals or not eating enough ?Changes in the weather ?Sleeping too much or too little ?Bright or flashing lights ?Drinking alcohol ?Certain drinks or foods, such as red wine, aged cheese, and hot dogs If your migraines are frequent or severe, your doctor can suggest others ways to help prevent them.For example, it might help to learn relaxation techniques and ways to manage stress. There are alsomedicines that can help. Some women get migraines just before or during their period. Medicine can help with this, too. How are migraines treated???--??There are many different medicines that can help with migraines. Your doctor can help you find the best treatment for your situation. For mild migraines, your doctor might suggest an fycu-gel-zhiokhb medicine such as acetaminophen (sample brand name: Tylenol), ibuprofen (sample brand names: Advil, Motrin), or naproxen (sample brandname: Aleve). There is also a medicine that combines acetaminophen, aspirin, and caffeine (sample brand name: Excedrin). For more severe migraines, there are prescription medicines that can help. If you have severe nausea or vomiting with your migraines, there are medicines that can help with that,too. Do not try to treat frequent migraines on your own with non-prescription pain medicines. Taking non-prescription pain medicines too often can actually cause more headaches later. What if I want to get ???--??If you want to get , talk to your doctor or nurse about it before you start trying. Some medicines used to treat and prevent migraines are not safe duringpregnancy, so you might need to switch medicines before you get . Some women notice that their migraines actually get better during and . Thisis related to hormonal changes in the body. All topics are updated as new evidence becomes available and our peer review process is complete. This topic retrieved from [employer] on: Mar 23, 2017. Topic 526328 Version 1.0 Release: 25.6.2-122 - C26.3 ?2018??[employer]. and/or its affiliates.??All rights reserved. Consumer Information Use and Disclaimer This information [...] or not to accept your health care provider's advice, instructions or recommendations. Only your health care provider has the knowledge and training to provide advice that is right for you.The use of [employer] content is governed by the [employer] Terms of Use. ??2018 [employer]. All rights reserved. Copyright ?2018??[employer] and/or its affiliates.??All rights reserved. documented in this encounter Medications [...] as of this encounter ED Notes * Mona ROSE MARIE Galarza - 08/17/2017 5:29 PM CDT Chief Complaint Chief Complaint Patient presents with ??? Headache History of Present Illness HPI Comments: Patient presents to the emergency room for evaluation of a migraine headache she states she has had for the past 2 days. States it is located on her right side of her head which is verytypical for her. She states she was at school today and has not been able to get any relief with over the counter medications. She denies any visual changes or disturbances. She states her cousin is here with her. She denies dizziness or lightheadedness. States she is nauseated but denies vomiting. Patient is a 36-year-old female presenting with headaches. Headache Medical History ALLERGIES: Allergies Allergen Reactions ??? [...] Packs/day: 0.50 Years: 15.00 ??? Smokeless tobacco: Never Used ??? Alcohol use No Review of Systems Review of Systems Neurological: Positive for headaches. Physical Exam Filed Vitals: 08/17/17 1635 BP: 140/88 Pulse: 81 Resp: 18 Temp: 98.9 ??F (37.2 ??C) TempSrc: Oral SpO2: 100% Weight: 68 kg (150 lb) Height: 5' 2 (1.575 m) Physical Exam Constitutional: She is oriented to person, place, and time. She appears well- developed and well-nourished. Patient lying reclined on exam table. Lites are on in the room. She is not sensitive to light or noise. She is talking on her cell phone when I return. Cardiovascular: Normal rate and regular rhythm. Pulmonary/Chest: Effort normal. Musculoskeletal: Normal range of motion. Neurological: She is alert and oriented to person, place, and time. No cranial nerve deficit. She exhibits normal muscle tone. Coordination normal. Skin: Skin is warm and dry. Psychiatric: She has a normal mood and affect. Her behavior is normal. Diagnostic Studies / Procedures ELECTROCARDIOGRAMS: No results found for this visit on 08/17/17. LABORATORY STUDIES: No results found for this visit on 08/17/17. IMAGING STUDIES No orders to display ED Course / Medical Decision Making MDM Number of Diagnoses or Management Options Migraine without aura and without status migrainosus, not intractable: established and worsening Amount and/or Complexity of Data Reviewed Tests in the medicine section of CPT??: ordered and reviewed Risk of Complications, Morbidity, and/or Mortality Presenting problems: low Diagnostic procedures: low Management options: low General comments: 36-year-old female. Nontoxic in appearance. Exam is noted. Discussed with patient pain management options. Patient reports she usually gets an injection of Dilaudid, morphine, Benadryl, and Phenergan. Informed patient that the hospital is out of Dilaudid and morphine. I offered her an injection of Nubain, Benadryl, and Phenergan which she received. Encourage her to go home and sleep in a dark, quiet cool room. Follow-up with primary care tomorrow if symptoms are not improving. She is agreeable to plan of care. Discharge home. Patient Progress Patient progress: stable Clinical Impression Migraine without aura and without status migrainosus, not intractable (Primary) Disposition: Discharge ROSE MARIE Morales 08/17/17 1744 Cosigned by Soto Marshall DO at 08/17/2017 6:09 PM CDT Associated attestation - Soto Marshall DO - 08/17/2017 6:09 PM CDT I have reviewed the midlevel providers documentation and physical exam And agree with their documentation and management/disposition of the patient. * ROSE MARIE Sky - 08/17/2017 4:34 PM CDT Patient present with headache that began 2 days ago. Patient with hx of migraines. Patient took home meds without any relief. ROSE MARIE Sky 08/17/17 1635 * Raji Hebert RN - 08/17/2017 4:21 PM CDT COMPLAINS OF MIGRAINE HEADACHE FOR THE PAST TWO DAYS. HAS TAKEN OWN MEDICATIONS WITHOUT RELIEVE. documented in this encounter Plan of Treatment Not on file documented as of this encounter Visit Diagnoses Diagnosis Migraine without aura and without status migrainosus, not intractable- Primary Migraine without aura, without mention of intractable migraine without mention of status migrainosus documented in this encounter Administered Medications Inactive Administered Medications - up to 3 most recent administrations Medication Order MAR Action Action Date Dose Rate Site diphenhydrAMINE (BENADRYL) injection 25 mg 25 mg, Intramuscular, Once, 1 dose, On Diana 08/17/17 at 1730, For IV administration, give no faster than 25 mg/min. Given 08/17/2017 5:46 PM CDT 25 mg Right Upper Outer Quadrant nalbuphine (NUBAIN) injection 20 mg 20 mg, Intramuscular, Once, 1 dose, On Diana 08/17/17 at 1730 Given 08/17/2017 5:45 PM CDT 20 mg Right Upper Outer Quadrant promethazine (PHENERGAN) injection 25 mg 25 mg, Intramuscular, Once, 1 dose, On Diana 08/17/17 at 1730, For IV administration must be used with CAUTION. Dilute dose to 10 ml with NS and inject over 10 minutes through a running IV line. Given 08/17/2017 5:46 PM CDT 25 mg Right Upper Outer Quadrant documented in this encounter Active and Recently Administered Medications Times are shown in CDT. Scheduled Medication Order 08/15/2017 08/16/2017 08/17/2017 diphenhydrAMINE (BENADRYL) injection 25 mg (COMPLETED) 25 mg, Intramuscular, Once, 1 dose, On Diana 08/17/17 at 1730, For IV administration, give no faster than 25 mg/min. 1746 (Given - Provid er: Misty Young) nalbuphine (NUBAIN) injection 20 mg (COMPLETED) 20 mg, Intramuscular, Once, 1 dose, On Diana 08/17/17 at 1730 1745 (Given - Provid er: Misty Young) promethazine (PHENERGAN) injection 25 mg (COMPLETED) 25 mg, Intramuscular, Once, 1 dose, On Diana 08/17/17 at 1730, For IV administration must be used with CAUTION. Dilute dose to 10 ml with NS and inject over 10 minutes through a running IV line. 1746 (Given - Provid er: Misty Young) documented in this encounter Care Teams Surgical Scrub Tech Relationship Specialty Start Date End Date Hermes Ramirez III, MD [address] [facility] [address] [place] [address] PCP - General FAMILY PRACTICE 06/20/17 documented as of this encounter
--- OUTSIDE RECORDS SUMMARY | 2024-03-20 11:56 | XMS_ITS | Encounter Summary ---
Author Organization [facility] Address [address] [place] [address]. [place], [place] [address] [place] [address] Care Team Providers Care Plant Culture Manager Name Role Phone Ashley ZUNIGA MD, Hermes Perez Primary Care Provid er Reason for Visit * Reason Comments Headache Encounter Details Date Type Department Care Team (Late st Contact Info) Description 12/27/2017 1:12 PM CDT - 12/27/2017 1:54 PM CDT Emergency [facility] [address] [place] [address] Carmelita Sharma, METAL SMELTER [address] 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 Gender Identity Not on file Sexual Orientation Not on file documented as of this encounter Last Filed Vital Signs Vital Sign Reading Time Taken Comments Blood Pressure 146/86 12/27/2017 1:09 PM CDT Pulse 86 12/27/2017 1:09 PM CDT Temperature 37.2 ??C (99 ??F) 12/27/2017 1:09 PM CDT Respiratory Rate 18 12/27/2017 1:09 PM CDT Oxygen Saturation 100% 12/27/2017 1:09 PM CDT Inhaled Oxygen Concentration - - Weight 72.6 kg (160 lb) 12/27/2017 1:09 PM CDT Height 157.5 cm (5' 2 ) 12/27/2017 1:09 PM CDT Body Mass Index 29.26 12/27/2017 1:09 PM CDT documented in this encounter Discharge Instructions * Attachments The following attachments cannot be sent through Care Everywhere. * HEADACHE, ADULT (RUSSIAN) documented in this encounter Medications at Time of Discharge fluconazole 150 MG tablet TAKE 1 TAB A SINGLE DOSE 0 10/06/2017 11/02/2018 lorazepam (ATIVAN) 0.5 MG tablet Take [...] this encounter ED Notes * ROSE MARIE Rutledge - 12/27/2017 1:54 PM CDT Chief Complaint Chief Complaint Patient presents with ??? Headache History of Present Illness 37-year-old female presents for complaint of migraine headache. States it started earlier today. States she took her nasal spray with minimal relief. She denies any visual disturbance. Denies dizziness. States this is typical in presentation. Denies thunderclap onset. Denies fever or neck stiffness. Reports photophobia and nausea without vomiting. Denies abdominal pain. Denies chest pain or shortness of breath. Medical History ALLERGIES: Allergies Allergen Reactions ??? Aspirin Other (see comment) C ??? Codeine Itching ??? Erythromycin Unknown ??? Toradol [Ketorolac Tromethamine] [...] ??? Chronic kidney disease ??? Thrombocytopenia (HCC) PAST SURGICAL HISTORY: Past Surgical History: Procedure [...] and are negative. Physical Exam Filed Vitals: 12/27/17 1309 BP: 146/86 Pulse: 86 Resp: 18 Temp: 99 ??F (37.2 ??C) TempSrc: Temporal SpO2: 100% Weight: 72.6 kg (160 lb) Height: 5' 2 (1.575 m) Physical Exam Constitutional: She is oriented to person, place, and time. She appears well- developed and well-nourished. HENT: Head: Normocephalic. Mouth/Throat: Oropharynx is clear and moist. Eyes: Conjunctivae and EOM are normal. Pupils are equal, round, and reactive to light. Neck: Normal range of motion. Neck supple. No neck rigidity. No Brudzinski's sign and no Kernig's sign noted. Cardiovascular: Intact distal pulses. Pulmonary/Chest: Effort normal. Musculoskeletal: Normal range of motion. Lymphadenopathy: She has no cervical adenopathy. Neurological: She is alert and oriented to person, place, and time. She has normal strength. No cranial nerve deficit or sensory deficit. Coordination and gait normal. GCS eye subscore is 4. GCS verbal subscore is 5. GCS motor subscore is 6. Skin: Skin is warm and dry. Psychiatric: She has a normal mood and affect. Nursing note and vitals reviewed. Diagnostic Studies / Procedures ELECTROCARDIOGRAMS: No results found for this visit on 12/27/17. LABORATORY STUDIES: No results found for this visit on 12/27/17. IMAGING STUDIES No orders to display ED Course / Medical Decision Making MDM Number of Diagnoses or Management Options Acute headache: minor Patient Progress Patient progress: stable Given IM Toradol, IM Phenergan, p.o. Benadryl with good resolution of symptoms. I have discussed today's findings with the patient/guardian and provided information regarding the likely diagnosis. The patient/guardian has been given information regarding their treatment, follow up and concerning symptoms for which they should seek urgent or emergent attention. I have expressed the the importance of seeking attention should there be any new, or worsening symptoms or persistence of their condition. We discussed red flags and warning signs of new or worsening conditions. The patient is stable atdischarge and has verbalized understanding of these instructions. Clinical Impression Acute headache (Primary) Disposition: Discharge ROSE MARIE Rutledge 12/27/17 1408 Cosigned by Zara Alonso MD at 01/04/2018 2:32 PM CDT * Jaime Hitchcock RN - 12/27/2017 12:57 PM CDT Pt presents to the ER for evaluation of a headache; she relates this is very similar to her previous headaches. documented in this encounter Plan of Treatment Not on file documented as of this encounter Visit Diagnoses Diagnosis Acute headache- Primary Headache documented in this encounter Administered Medications Inactive Administered Medications - up to 3 most recent administrations Medication Order MAR Action Action Date Dose Rate Site diphenhydrAMINE (BENADRYL) capsule 50 mg 50 mg, Oral, Once, 1 dose, On Mon12/27/17 at 1345 Given 12/27/2017 1:53 PM CDT 50 mg nalbuphine (NUBAIN) injection 10 mg 10 mg, Intramuscular, Once, 1 dose, On Mon12/27/17 at 1330 Given 12/27/2017 1:27 PM CDT 10 mg Left Upper Outer Quadrant promethazine (PHENERGAN) injection 25 mg 25 mg, Intramuscular, Once, 1 dose, On Mon12/27/17 at 1330, For IV administration must be used with CAUTION. Dilute dose to 10 ml with NS and inject over 10 minutes through a running IV line. Given 12/27/2017 1:27 PM CDT 25 mg Left Upper Outer Quadrant documented in this encounter Active and Recently Administered Medications Times are shown in CDT. Scheduled Medication Order 12/25/2017 12/26/2017 12/27/2017 diphenhydrAMINE (BENADRYL) capsule 50 mg (COMPLETED) 50 mg, Oral, Once, 1 dose, On Mon12/27/17 at 1345 1353 (Given - Provid er: Diana Millard RN)1400 (Due) nalbuphine (NUBAIN) injection 10 mg (COMPLETED) 10 mg, Intramuscular, Once, 1 dose, On Mon12/27/17 at 1330 1327 (Given - Provid er: Diana Millard RN) promethazine (PHENERGAN) injection 25 mg (COMPLETED) 25 mg, Intramuscular, Once, 1 dose, On Mon12/27/17 at 1330, For IV administration must be used with CAUTION. Dilute dose to 10 ml with NS and inject over 10 minutes through a running IV line. 1327 (Given - Provid er: Diana Millard RN) documented in this encounter Care Teams Plant Culture Manager Relationship Specialty Start Date End Date Hermes Ramirez III, MD [address] [address] PCP - General FAMILY PRACTICE 06/20/17 documented as of this encounter
--- OUTSIDE RECORDS SUMMARY | 2024-03-20 11:56 | XMS_ITS | Encounter Summary ---
Author Organization [facility] Address [address] [place] [address]. [place], [place] [id number] [place] [id number] Care Team Providers Care Corporate Claims Examiner Name Role Phone Ashley ZUNIGA MD, Hermes Perez Primary Care Provid er Encounter Details Date Type Department Care Team (Latest Contact Info) Description 11/13/2017 Abstract [facility] , Lazara Lange MD Social History Tobacco Use Types Packs/Day Years Used Date Smoking Tobacco: Every Day Cigarettes 0.5 15 Smokeless Tobacco: Never Alcohol Use Standard Drinks/Week Comments No 0 (1 standard drink = 0.6 oz pur e alcohol) Comments No Sex and Gender Information Value Date Recorded Sex Assigned at Not on file Legal Sex Female 9:15 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 Abnormal Pap Smear - Lgsil ? Cervical Dysplasia ? A63.0 - Condyloma Acuminatum ? 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 Z94.4 - Liver Transplant Recipient History of Present Illness This is a 37 year old Female with the following history: Positive Symptoms Pertinent negative symptoms: No systemic symptoms and no gastrointestinal symptoms Other History Allergies ? Aspirin ? Rocael-Tab (Erythromycin) ? Tetracaine HCl ? Toradol (Ketorolac) ? Tylenol #3 (Acetaminophen + Codeine) Reaction: Skin Rashes, Hives Current Medication ? Aldara 5% External Cream as directed [...] 5MG Nasal Solution 0 days, 0 refills Subjective The patient is a 37-year-old female who presents for annual exam. No chronic complaints other than multiple vulvar condyloma. History of ALBARO. Past Medical/Surgical History Reported: No recent change in medical history and Last pap smear date 05/19/2017 result: abnormal ASCUS with HPV. Surgical / Procedural: Surgical / procedural history Liver Transplant 1992 double hernia 1986 Kasai procedure 1982. Prior surgery Left breast fibroadenoma. Pt has a history of VIN3 and IFEANYI 3. Has seen in [place] in the past. Recent Hospitalizatiion for Pancreatitis 09/2016. : 3 and para 2. Liver transplant 1992. Procedural: ? Thermal endometrial ablation Surgical: ? Tubal ligation 05/22/2012 Social History Social history unchanged. Behavioral: Cigarette smoking and smoking status: Current everyday smoker. Alcohol: No consumption of alcohol. Drug Use: Not using drugs. Work: Occupation was unknown. Marital: Currently . Sexual: Sexually active. Pt is and has 2 children. Family History Family history unchanged Review Of Systems Systemic: No systemic symptoms. Gastrointestinal: No gastrointestinal symptoms. Physical Findings ? Vitals taken 11/13/2017 02:23 pm BP-Sitting 132/80 mmHg Respiration Rate 16 per min Height 62 in Weight 167 lbs Body Mass Index 30.5 kg/m2 Body Surface Area 1.77 m2 General Appearance: ?? Well developed. ?? Well nourished. ?? In no acute distress. Head: ?? Normal. Neck: Suppleness: ?? Neck demonstrated no decrease in suppleness. Thyroid: ?? Showed no abnormalities. Eyes: General/bilateral: ?? Eyes: normal. Ears, Nose, Throat: ?? ENT: normal. Lymph Nodes: ?? No adenopathy. Breasts: Right Breast: ?? Nipple was normal. ?? No abnormal secretion. ?? No mass was found. ?? No tenderness. Left Breast: ?? Nipple was normal. ?? No abnormal secretion. ?? No mass was found. ?? No tenderness. Lungs: ?? Clear to auscultation. Cardiovascular: Heart Rate And Rhythm: ?? Normal. Murmurs: ?? No murmurs were heard. Abdomen: Palpation: ?? Abdominal non-tender. ?? No mass was palpated in the abdomen. Liver: ?? Not enlarged. Urinary System: Urethra: ?? Normal. Genitalia: External: ?? Genitalia showed no abnormalities. Pelvic: ?? No ovarian mass. Vagina: ?? Mucosa was normal. ?? No vaginal discharge was observed. ?? No cystocele was observed. ?? No rectocele was observed. Cervix: ?? Normal. ?? Showed no lesion. Uterus: ?? Position was normal. ?? Contour was not irregular. ?? Not enlarged. ?? Uterine size is normal. ?? Not tender. Uterine Adnexae: ?? Uterine adnexa was not tender. Tests Urinalysis Was Performed: Urinalysis was performed. Normal urine protein and negative for glucose. Counseling/Education ? Instructions for patient: Breast Self Exam discussed in detail and the technique was reviewed. The patient verbalized understanding ? Patient education: Urinary Tract Infection ? Patient education: Osteoporosis Screening/Bone Density Testing ? Patient education: Diet/Weight Control ? Patient education: Folic Acid Supplements ? Patient education: Calcium Supplements ? Patient education: Exercise ? Patient education: Self Breast Exam and Mammograms Plan ? Encounter for screening for malignant neoplasm of cervix Lab: PAP, THINPREP W/HPV when ASCUS or above Await todays Pap. See back in three months to repeat Pap due to history of dysplasia. Appointment with Dr. Laws for possible ablation condyloma, p.r.n. problems. Care Team Hermes Ramirez Primary Care Maria Isabel Jennings MD Electronically signed by: MARIA ISABEL JENNINGS Date: 11/21/2017 16:17 documented in this encounter Plan of Treatment Not on file documented as of this encounter Procedures Procedure Name Priority Date/Time Associated Diagnosis Comments THINPREP IMAGING SYSTEM PAP Routine 11/13/2017 2:57 PM CDT documented in this encounter Results * THINPREP IMAGING SYSTEM PAP (11/13/2017 2:57 PM CDT) THIN PREP PAP [facility] UP TO EPIC CONVERSION Comment: Patient Name: MISHA JACKSON Specimen #: [id number] ?? Procedure Date: 11/13/2017 /Age: 7 1980 (Age: 37) Gender: ??F Accessioned: 11/14/2017 Address: [address] ??[id number] Reported: 11/21/2017 ?? Encounter: [id number] Location: [facility] ?? Physician(s): MARIA ISABEL JENNINGS MD ?? : ? CYTOPATHOLOGY - GYNECOLOGIC REPORT Diagnosis: TEST NAME: ??THINPREP PAP WITH CASTING DIRECTOR,REFLEX HPV-ASCUS AND ABOVE INTERPRETATION/RESULT: NEGATIVE FOR INTRAEPITHELIAL LESION OR MALIGNANCY. THE ABSENCE OF AN ENDOCERVICAL COMPONENT WAS CONFIRMED BY AN ADDITIONAL SCREENER. STATEMENT OF ADEQUACY: SATISFACTORY FOR EVALUATION; ENDOCERVICAL/TRANSFORMATION ZONE COMPONENT ABSENT. ?? SXN ELIDA GROVER(ASCP) [facility]/11/21/2017 Report Electronically Signed Specimen: THINPREP PAP WITH CASTING DIRECTOR,REFLEX HPV-ASCUS AND ABOVE Clinical Diagnosis and History Date of Last Menstrual Period: ? . Specimen Source: Cervical/Endocervical ? PAP SMEARS ARE SCREENING TESTS SUBJECT TO BOTH FALSE NEGATIVE AND FALSE POSITIVE RESULTS EVIDENCED BY DATA PUBLISHED IN THE MEDICAL LITERATURE. YOUR PATIENT'S RESULT SHOULD BE INTERPRETED IN THIS CONTEXT, TOGETHER WITH THE PATIENT'S HISTORY AND CLINICAL FINDINGS. 11/13/2017 2:57 PM CDT Narrative [facility] TO [facility] CONVERSION - 11/13/2017 2:57 PM CDT [Task Forwarded to [facility]] nl. us Maria Isabel Jennings MD PATHOLOGY/CYTOLOGY ORDERAB LES Final Result [facility] TO [employer] CONVERSION documented in this encounter Visit Diagnoses Not on filedocumented in this encounter Care Teams Corporate Claims Examiner Relationship Specialty Start Date End Date Hermes Ramirez III, MD [address] [facility] [address] [place] [address] PCP - General FAMILY PRACTICE 06/20/17 documented as of this encounter
--- OUTSIDE RECORDS SUMMARY | 2024-03-20 11:56 | XMS_ITS | Encounter Summary ---
Author Organization [facility] Address [address] [place] [address]. [place], [place] [address] [place] [address] Care Team Providers Care Pin Maker Name Role Phone Ashley ZUNIGA MD, Hermes Perez Primary Care Provid er Reason for Visit * Reason Comments Headache MIGRAINE Encounter Details Date Type Department Care Team (Late st Contact Info) Description 11/15/2017 3:54 PM CDT - 11/15/2017 4:30 PM CDT Emergency [facility] [address] [place] [address] Akil Khoury, APNP [address] [place] [address] Headache (MIGRAINE) Discharge Disposition: Home or Self Care (Routine Discharge) Social History Tobacco Use Types Packs/Day Years Used Date Smoking Tobacco: Every Day Cigarettes 0.5 15 Smokeless Tobacco: Never Alcohol Use Standard Drinks/Week Comments No 0 (1 standard drink = 0.6 oz pur e alcohol) Comments No Sex and Gender Information Value Date Recorded Sex Assigned at Not on file 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 Gender Identity Not on file Sexual Orientation Not on file documented as of this encounter Last Filed Vital Signs Vital Sign Reading Time Taken Comments Blood Pressure 148/94 11/15/2017 3:55 PM CDT Pulse 100 11/15/2017 3:55 PM CDT Temperature 37.2 ??C (98.9 ??F) 11/15/2017 3:55 PM CD T Respiratory Rate 18 11/15/2017 3:55 PM CDT Oxygen Saturation 100% 11/15/2017 3:55 PM CDT Inhaled Oxygen Concentration - - Weight 68 kg (150 lb) 11/15/2017 3:55 PM CDT Height 157.5 cm (5' 2 ) 11/15/2017 3:55 PM CDT Body Mass Index 27.44 11/15/2017 3:55 PM CDT documented in this encounter Discharge Instructions * Discharge Instructions* Akil Khoury, APNP - 11/15/2017 4:22 PM CDT Images from the original note were not included. Patient Education Headache Discharge Instructions, Adult About [...] my headaches. Where can I learn more? [place] [facility] http://www.aafp.org/afp/topicModules/viewTopicModule.htm?topicModuleId=10 National Headache Foundation http://www.headaches.org/education/Tools_for_Sufferers/Headache_-_Frequently_Ask ed_Questions National [place] of Neurological Disorders and Stroke http://www.ninds.nih.gov/disorders/headache/headache.htm NHS [...] right for you. Copyright Copyright ?? 2018 [employer]. and its affiliates and/or licensors. All rights [...] this encounter ED Notes * ROSE MARIE Del Valle - 11/15/2017 4:00 PM CDT Emergency Department Note Chief Complaint Chief Complaint Patient presents with ??? Headache MIGRAINE History of Present Illness Elsa Browne is a 37-year-old female who presented to the ED with intermittent migraine style headaches for 1 week. Patient reports she has had a history of migraines and this is similar to her previous migraines in the past. 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 Patient reports she is unable to have NSAIDs due to liver transplant in the past. Patient reports she was asked to have narcotic medications to treat her headache. Patient does states she has Stadol at home but that is not help with her headaches. She denies any fevers, chest pain, shortness of breath. Patient does have photophob ia and some nausea. Medical History ALLERGIES: Allergies Allergen Reactions ??? [...] Gastrointestinal: Negative. Endocrine: Negative. Genitourinary: Negative. Musculoskeletal: Negative. Skin: Negative. Allergic/Immunologic: Negative. Neurological: Positive for headaches. Hematological: Negative. Psychiatric/Behavioral: Negative. Physical Exam Filed Vitals: 11/15/17 1555 BP: (!) 148/94 Pulse: 100 Resp: 18 Temp: 98.9 ??F (37.2 ??C) TempSrc: Temporal SpO2: 100% Weight: 68 kg (150 lb) Height: 5' 2 (1.575 m) Physical Exam Constitutional: She is oriented to person, place, and time. She appears well- developed and well-nourished. HENT: Head: Normocephalic. Right Ear: External ear normal. Left Ear: External ear normal. Mouth/Throat: Oropharynx is clear and moist. No oropharyngeal exudate. Eyes: EOM are normal. Pupils are equal, round, and reactive to light. Right eye exhibits no discharge. Left eye exhibits no discharge. Neck: Normal range of motion. Neck supple. No JVD present. No tracheal deviation present. No thyromegaly present. Cardiovascular: Normal rate and regular rhythm. Pulmonary/Chest: Effort normal and breath sounds normal. No stridor. No respiratory distress. She has no wheezes. Abdominal: Soft. Bowel sounds are normal. She exhibits no distension and no mass. There is no tenderness. Musculoskeletal: Normal range of motion. She exhibits no tenderness. Lymphadenopathy: She has no cervical adenopathy. Neurological: She is alert and oriented to person, place, and time. Skin: Skin is warm and dry. No rash noted. No erythema. Psychiatric: She has a normal mood and affect. Her behavior is normal. Judgment and thought contentnormal. Nursing note and vitals reviewed. Diagnostic Studies / Procedures ELECTROCARDIOGRAMS: No results found for this visit on 11/15/17. LABORATORY STUDIES: No results found for this visit on 11/15/17. IMAGING STUDIES No orders to display ED Course / Medical Decision Making 37-year-old female presents emergency room for evaluation of headache. Patient reports typically what helps the headaches is narcotics. She was seen in July 2017 and treated with Nubain and Phenergan and Benadryl. Patient is unable to have NSAIDs due to liver transplant. She was offered the Nubain and Phenergan and Benadryl combination as a method to treat her headache. Nubain was given IM at the Phenergan and Benadryl were both p.o. After receiving medication patient informed nursing staff thatshe was ready to be discharged from the emergency room. Patient stated she had things to do today. Patient appears stable in no distress upon discharge from the emergency room. She is encouraged to follow-up with her primary care doctor to establish outpatient management of her headaches. Red flagsdiscussed . Medications promethazine (PHENERGAN) tablet 25 mg (25 mg Oral Given 11/15/17 161) diphenhydrAMINE (BENADRYL) tablet 50 mg (50 mg Oral Given 11/15/171610) nalbuphine (NUBAIN) injection 20 mg (20 mg Intramuscular Given 11/15/17 1611) Clinical Impression Headache (Primary) Current Discharge Medication List Disposition: Discharge Follow-Up: Hermes Ramirez III, MD [address] [facility] [address] [facility] [address] In 3 days ROSE MARIE DEL VALLE 11/15/2017 ROSE MARIE Del Valle 11/15/17 1623 ROSE MARIE Del Valle 01/08/18 0122 Cosigned by Grayson Corcoran MD at 01/08/2018 6:07 AM CDT * ROSE MARIE Rutledge - 11/15/2017 3:54 PM CDT intermittent migraine for 1 week. ROSE MARIE Rutledge 11/15/17 1554 * Shea Park RN - 11/15/2017 3:52 PM CDT PRESENTS WITH C/O MIGRAINE. HAS HX OF THEM, FEELS LIKE USUAL MIGRAINE. HAS MIGRAINES AROUND TIME WOULD HAVE HER PERIOD. STATES HAD ABLATION SO DOESN'T HAVE PERIODS NOW documented in this encounter Plan of Treatment Not on file documented as of this encounter Visit Diagnoses Diagnosis Headache- Primary documented in this encounter Administered Medications Inactive Administered Medications - up to 3 most recent administrations Medication Order MAR Action Action Date Dose Rate Site diphenhydrAMINE (BENADRYL) tablet 50 mg 50 mg, Oral, Once, 1 dose, On Mon11/15/17 at 1615 Given 11/15/2017 4:11 PM CDT 50 mg nalbuphine (NUBAIN) 20 MG/ML injection 1 dose, Starting on Mon11/15/17 at 1605, Until Mon11/15/17 at 1611, Created by byron valle nalbuphine (NUBAIN) injection 20 mg 20 mg, Intramuscular, Once, 1 dose, On Mon11/15/17 at 1615 Given 11/15/2017 4:11 PM CDT 20 mg Left Upper Outer Quadrant promethazine (PHENERGAN) tablet 25 mg 25 mg, Oral, Once, 1 dose, On Mon11/15/17 at 1615 Given 11/15/2017 4:11 PM CDT 25 mg documented in this encounter Active and Recently Administered Medications Times are shown in CDT. Scheduled Medication Order 11/13/2017 11/14/2017 11/15/2017 diphenhydrAMINE (BENADRYL) tablet 50 mg (COMPLETED) 50 mg, Oral, Once, 1 dose, On Mon11/15/17 at 1615 1611 (Given - Provid er: Celsa Lerma LPN) nalbuphine (NUBAIN) injection 20 mg (COMPLETED) 20 mg, Intramuscular, Once, 1 dose, On Mon11/15/17 at 1615 1611 (Given - Provid er: Celsa Lerma LPN) promethazine (PHENERGAN) tablet 25 mg (COMPLETED) 25 mg, Oral, Once, 1 dose, On Mon11/15/17 at 1615 1611 (Given - Provid er: Celsa Lerma LPN) documented in this encounter Care Teams Pin Maker Relationship Specialty Start Date End Date Hermes Ramirez III, MD [address] [address] PCP - General FAMILY PRACTICE 06/20/17 documented as of this encounter
--- OUTSIDE RECORDS SUMMARY | 2024-03-20 11:56 | XMS_ITS | Encounter Summary ---
Author Organization [facility] Address [address] [place] [address]. [place], [place] [id number] [place] [address] Care Team Providers Care Mva Reactor Operator Head Name Role Phone Ashley ZUNIGA MD, Hermes Perez Primary Care Provid er Encounter Details Date Type Department Care Team (Latest Contact Info) Description 10/23/2017 Abstract [facility] , Lazara Lange MD Social History Tobacco Use Types Packs/Day Years Used Date Smoking Tobacco: Every Day Cigarettes 0.5 15 Smokeless Tobacco: Never Alcohol Use Standard Drinks/Week Comments No 0 (1 standard drink = 0.6 oz pur e alcohol) Comments No Sex and Gender Information Value Date Recorded Sex Assigned at Not on file Legal Sex Female 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 Gender Identity Not on file Sexual Orientation Not on file documented as of this encounter Last Filed Vital Signs Vital Sign Reading Time Taken Comments Blood Pressure 120/80 10/23/2017 2:55 PM CDT urine-trace/neg urine-trace/neg Pulse - - Temperature - - Respiratory Rate - - Oxygen Saturation - - Inhaled Oxygen Concentration - - Weight 73.4 kg (161 lb 12 oz) 10/23/2017 2:55 PM CDT urine-trace/neg Height 157.5 cm (5' 2 ) 10/23/2017 2:55 PM CDT urine-trace/neg Body Mass Index 29.58 10/23/2017 2:55 PM CDT documented in this encounter Progress Notes * Luz Clay APRN - 10/23/2017 12:00 AM CDT TESTS Imaging: An ultrasound was performed by: BLANCA. Ultrasound Trans-Vaginal: Value Endometrium thickness 2.4 mm R ovary length 32 mm L ovary depth 18 mm R ovary width 18 mm L ovary length 24 mm No uterine enlargement, does not have a mass lesion, no enlargement of the right ovary, not on the left, no mass on the right ovary, and not on the left. IMPRESSION: Limited TV BEAVER TRAPPER sono for RLQ pain: normal uterus with thin endo stripe= 2.4 mm; normal ovaries; no free fluid; LG. Luz Clay Electronically signed by: Marge Clay Date: 10/25/2017 13:52 * Luz Clay, MIGUELINA - 10/23/2017 12:00 AM CDT ACTIVE PROBLEMS ? Abnormal Pap Smear - Lgsil ? Cervical Dysplasia ? Condyloma Acuminatum ? History of Vulvar Dysplasia ? Liver Transplant Recipient CHIEF COMPLAINT The Chief Complaint is: Pt presents for lower right quadrant pain.--ALS. HISTORY OF PRESENT ILLNESS Elsa Browne is a 37 year old female. ? Medication list reviewed. ? Not feeling fine. ? Pelvic pain same pain as previous, but worse the past couple of days; pt thinks she was ovulatingyesterday when pain was most severe. ? Menses pt noticed some blood with wiping today, otherwise no bleeding since ablation 4 yrs ago ??No vaginal discharge CURRENT MEDICATION ? Aldara 5% External Cream [...] procedural history Liver Transplant 1992 double hernia 1985 [place] procedure 1982. Prior surgery Left breast fibroadenoma. Pt has a history of VIN3 and IFEANYI 3. Has seen in [place] in the past. Recent Hospitalizatiion for Pancreatitis [...] Codeine) Reaction: Skin Rashes, Hives PHYSICAL FINDINGS ? Vitals taken 10/23/2017 02:55 pm urine-trace/neg BP-Sitting R 120/80 mmHg Respiration Rate 16 per min Height 62 in Weight 161 lbs 12.8 oz Body Mass Index 29.6 kg/m2 Body Surface Area 1.75 m2 General Appearance: ?? Well developed. ?? Well nourished. ?? In no acute distress. ASSESSMENT ? Female pelvic pain THERAPY ? Clinical summary provided to patient. PLAN Pt sent for pelvic ultrasound, results WNL. Pt was never able to reschedule her appt with [facility] due to her school schedule; however, she will be done with classes in 10 days and then has clinicals, which she says will be more flexible. She would still like to pursue seeing the doctor at [facility]; called regarding her appt, and they need a new referral. Appt scheduled for 12/26/17 at 2:[address] Pollack, and they will send pt paperwork; requested Luz Maria at our office to resend pt records to their office. Pt still has muscle relaxer at home to use as needed. Pt to call as needed, has annual scheduled later this month with Dr. Pruitt. CARE TEAM Hermes Ramirez Primary Care HEALTH REMINDERS ? Assess BMI satisfied 10/23/2017. ? Assess Tobacco Use satisfied 10/23/2017. ? Blood Pressure Measurement satisfied 10/23/2017. Luz Clay Electronically signed by: Marge Clay Date: 10/25/2017 13:50 documented in this encounter Plan of Treatment Not on file documented as of this encounter Visit Diagnoses Not on filedocumented in this encounter Care Teams Mva Reactor Operator Head Relationship Specialty Start Date End Date Hermes Ramirez III, MD [address] [facility] [address] [place] [address] PCP - General FAMILY PRACTICE 06/20/17 documented as of this encounter
--- OUTSIDE RECORDS SUMMARY | 2024-03-20 11:56 | XMS_ITS | Encounter Summary ---
Author Organization [facility] Address [address] [place] [address]. [place], [place] [address] [place] [address] Care Team Providers Care Plasma Table Operator Name Role Phone Ashley ZUNIGA MD, Hermes Perez Primary Care Provid er Encounter Details Date Type Department Care Team (Latest Contact Info) Description 12/29/2017 Abstract 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 Abnormal Pap Smear ? Cervical Dysplasia ? Condyloma Acuminatum ? History of Vulvar Dysplasia ? Liver Transplant Recipient SUBJECTIVE Pt. here Pre Op - discuss Condyloma Lasering per CRS. -ch CHIEF COMPLAINT Has self-treated with imiquimod without success HISTORY OF PRESENT ILLNESS Elsa Browne is a 37 year old female. ? Medication list reviewed. CURRENT MEDICATION ? Prograf 1MG Oral Capsule, [...] VIN3 and IFEANYI 3. Has seen in [place] in the past. Recent Hospitalizatiion for Pancreatitis [...] history unchanged PHYSICAL FINDINGS ? Vitals taken 12/29/2017 01:41 pm BP-Sitting 134/84 mmHg Height 62 in Weight 168 lbs Body Mass Index 30.7 kg/m2 Body Surface Area 1.77 m2 Has several (20 or so) condyloma from mons to perirectal area. All are older and keratinized. ASSESSMENT ? Condyloma acuminatum THERAPY ? Clinical summary provided to patient. COUNSELING/EDUCATION Discussed risks of surgery including risks of anesthesia, as well as risk of bleeding, infection, and scarring. DISCUSSED Will proceed with laser vaporization at her request PLAN Laser vaporization of condyloma Umesh Washington MD Electronically signed by: Umesh Washington Date: 12/29/2017 14:42 documented in this encounter Plan of Treatment Not on file documented as of this encounter Visit Diagnoses Not on filedocumented in this encounter Care Teams Plasma Table Operator Relationship Specialty Start Date End Date Hermes Ramirez III, MD [address] [facility] [address] [place] [address] PCP - General FAMILY PRACTICE 06/20/17 documented as of this encounter
--- OUTSIDE RECORDS SUMMARY | 2024-03-20 11:56 | XMS_ITS | Encounter Summary ---
Author Organization [facility] Address [address] [place] [address]. [place], [place] [address] [place] [address] Care Team Providers Care Watch Adjuster Name Role Phone Ashley ZUNIGA MD, Hermes Perez Primary Care Provid er Encounter Details Date Type Department Care Team (Latest Contact Info) Description 08/15/2017 Abstract [facility] Medical [facility] , Lazara Lange MD Social History Tobacco Use Types Packs/Day Years Used Date Smoking Tobacco: Every Day Cigarettes 0.5 15 Alcohol Use Standard Drinks/Week Comments No 0 (1 standard drink = 0.6 oz pur e alcohol) Comments No Sex and Gender Information Value Date Recorded Sex Assigned at Not on file Legal Sex Female 9:15 PM RNFA Gender Identity Not on file Sexual Orientation Not on file documented as of this encounter Last Filed Vital Signs Vital Sign Reading Time Taken Comments Blood Pressure 132/78 08/15/2017 2:39 PM CDT Pulse - - Temperature - - Respiratory Rate - - Oxygen Saturation - - Inhaled Oxygen Concentration - - Weight 70.8 kg (156 lb) 08/15/2017 2:39 PM CDT Height 157.5 cm (5' 2 ) 08/15/2017 2:39 PM CDT Body Mass Index 28.53 08/15/2017 2:39 PM CDT documented in this encounter Progress Notes * Luz Clay, HOUSING QUALITY STANDARD INSPECTOR - 08/15/2017 12:00 AM CDT ACTIVE PROBLEMS ? Abnormal Pap Smear - Lgsil ? Cervical Dysplasia ? Condyloma Acuminatum ? History of Vulvar Dysplasia ? Liver Transplant Recipient CHIEF COMPLAINT The Chief Complaint is: Ovarian cyst and pain - AN. REASON FOR VISIT Gynecologic consultation. HISTORY OF PRESENT ILLNESS Elsa Browne is a 36 year old female. ? Not feeling fine: pelvic pain, worse for past few weeks, slightly better today; long history of chronic pelvic/abdominal pain. CURRENT MEDICATION ? Aldara 5% External Cream as directed appy to area 3 times a week at . Max 16 weeks., 30 days, 2refills ? HYDROmorphone HCl 2MG Oral Tablet 1 every 4 - 6 hours as needed, 30 days, 0 refills ? Prograf 1MG Oral Capsule, conventional 2 twice a day 0 days, 0 refills ? Sodium Bicarbonate 650MG Oral Tablet 2 three times a day 0 days, 0 refills PAST MEDICAL/SURGICAL HISTORY Reported: Last pap smear date 04/2016 NML done at office and result: abnormal LGSIL. Surgical / Procedural: Surgical / procedural history Liver Transplant 1992 double hernia 1986 [place] procedure 1982. Prior surgery Left breast fibroadenoma. Pt has a history of VIN3 and IFEANYI 3. Has seen in [place] in the past. Recent Hospitalizatiion for Pancreatitis [...] Rashes, Hives PHYSICAL FINDINGS ? Vitals taken 08/15/2017 02:39 pm BP-Sitting R 132/78 mmHg Height 62 in Weight 156 lbs Body Mass Index 28.5 kg/m2 Body Surface Area 1.72 m2 General Appearance: ?? Well developed. ?? Well nourished. ?? In no acute distress. ASSESSMENT ? Abdominal pain ? Female pelvic pain PLAN ? Other Cyclobenzaprine HCl 10 MG tablet, one once daily, 30 days, 0 refills Cyclobenzaprine HCl 10 MG tablet, may take up to 3 times daily as needed, 30 days, 0 refills Cyclobenzaprine HCl 10 MG tablet, May take 3 times daily as needed, 30 days, 0 refills Pt sent for pelvic ultrasound to rule out any new findings, results WNL. Pt was referred to Gerard at last visit due to chronic pelvic pain, but pt states she missed her appt due to school. Pt advised to reschedule this appt, as there is nothing more we can really do at this point. Pt is limited onmedications that she can take due to history of liver issues, but has taken Flexeril in the past without issues and with some relief. Script sent for this, and pt encouraged to reschedule appt with Gerard JENNI; pt agreeable. [facility]ARE [facility]AM [facility] Luz Clay Electronically signed by: Marge Clay Date: 08/16/2017 12:25 * Luz Clay APRN - 08/15/2017 12:00 AM CDT TESTS Imaging: An ultrasound was performed by: LG. Ultrasound Trans-Vaginal: Value Endometrium thickness 2.2 mm R ovary length 26 mm L ovary depth 18 mm R ovary width 20 mm L ovary width 16 mm L ovary length 27 mm No uterine enlargement, does not have a mass lesion, no enlargement of the right ovary, not on the left, no mass on the right ovary, and not on the left. IMPRESSION: TV PLATER PRINTED CIRCUIT BOARD PANELS sono for pain: normal uterus with thin endo stripe= 2.2 mm; normal ovaries; RT ovary sits high, only visualized transabdominally; no free fluid; LG. Luz Clay Electronically signed by: Marge Clay Date: 08/23/2017 11:58 documented in this encounter Miscellaneous Notes * Letter - Luz Clay APRN - 08/15/2017 12:00 AM CDT [facility] [address] [place] [address], [place] [address] Elsa Browne [address] [place] [address] To whom it may concern, Elsa was seen in the office today, August 15, 2017 for an appointment. Thank you. Luz Clay [facility] documented in this encounter Plan of Treatment Not on file documented as of this encounter Visit Diagnoses Not on filedocumented in this encounter Care Teams Watch Adjuster Relationship Specialty Start Date End Date Hermes Ramirez III, MD [address] [address] PCP - General FAMILY PRACTICE 06/20/17 documented as of this encounter
--- OUTSIDE RECORDS SUMMARY | 2024-03-20 11:56 | XMS_ITS | Encounter Summary ---
Author Organization [facility] Address [address] [place] [address]. [place], [place] [address] [place] [address] Care Team Providers Care Nurse Educator Name Role Phone Ashley ZUNIGA MD, Hermes Perez Primary Care Provid er Encounter Details Date Type Department Care Team (Latest Contact Info) Description 01/02/2018 Abstract [facility] , Lazara Lange MD Social History Tobacco Use Types Packs/Day Years Used Date Smoking Tobacco: Every Day Cigarettes 0.5 15 Smokeless Tobacco: Never Alcohol Use Standard Drinks/Week Comments No 0 (1 standard drink = 0.6 oz pur e alcohol) Comments No Sex and Gender Information Value Date Recorded Sex Assigned at Not on file Legal Sex Female 9:15 PM CANDY BAR ATTENDANT Gender Identity Not on file Sexual Orientation Not on file documented as of this encounter Plan of Treatment Not on file documented as of this encounter Visit Diagnoses Not on filedocumented in this encounter Care Teams Nurse Educator Relationship Specialty Start Date End Date Hermes Ramirez III, MD [address] [facility] [address] [place] [address] PCP - General FAMILY PRACTICE 06/20/17 documented as of this encounter
--- OUTSIDE RECORDS SUMMARY | 2024-03-20 11:57 | XMS_ITS | Encounter Summary ---
Author Organization [facility] Address [address] [place] [address]. [place] [address] [place] [address] Care Team Providers Care Service Director Name Role Phone Ashley ZUNIGA MD, Hermes Primary Care Provid er Encounter Details Date Type Department Care Team (Late st Contact Info) Description 05/30/2017 Orders Only [facility] CONVERSION [address] [place] [address] , Generic ConversionMD Social History Tobacco Use Types Packs/Day Years Used Date Smoking Tobacco: Never Assessed Comments Unknown Sex and Gender Information Value Date Recorded Sex Assigned at Not on file Legal Sex Female 9:15 PM ELEVATOR SERVICEMAN Gender Identity Not on file Sexual Orientation Not on file documented as of this encounter Plan of Treatment Not on file documented as of this encounter Procedures Procedure Name Priority Date/Time Associated Diagnosis Comments URINE BACTERIA CULTURE Nurse Collected Priority 05/30/2017 3:38 PM CDT URINALYSIS Nurse Collected Priority 05/30/2017 3:33 PM CDT documented in this encounter Results * CULTURE URINE (05/30/2017 3:38 PM CDT) SPEC DESCRIPTION URINE 05/30/2017 3:25 PM CDT [facility] SPECIAL REQUESTS NO SPECIAL REQUEST 05/30/2017 3:25 PM CDT [facility] CULTURE RESULT NO GROWTH (< OR = 1,000 CFU/ML) 05/31/2017 2:46 AM CDT [facility] URINE SPECIMEN / Unknown 05/30/2017 3:38 PM CDT 05/30/2017 3:46 PM CDT Comment:URINE CLEAN CATCH us Generic Conversion Md MENDOZA MICROBIOLOGY - GENERAL ORDERABLES Final Result [facility] [address] [place] [address], [id number] * (ABNORMAL) URINALYSIS (05/30/2017 3:33 PM CDT) COLOR (U) LIGHT YELLOW 05/30/2017 3:52 PM CDT [facility] TRANSPARENCY CLEAR 05/30/2017 3:52 PM CDT [facility] SPECIFIC GRAVITY (U) 1.011 1.002 - 1.035 05/30/2017 3:52 PM CDT [facility] U PH 6.0 5 - 8 05/30/2017 3:52 PM CDT [facility] PROTEIN (U) NEGATIVE NEGATIVE 05/30/2017 3:52 PM CDT [facility] URINE GLUCOSE NEGATIVE NEGATIVE MG/DL 05/30/2017 3:52 PM CDT [facility] KETONES MG/DL (U) NEGATIVE NEGATIVE 05/30/2017 3:52 PM CDT [facility] BILIRUBIN (U) NEGATIVE NEGATIVE 05/30/2017 3:52 PM CDT [facility] BLOOD (U) SMALL(A) NEGATIVE 05/30/2017 3:52 PM CDT [facility] NITRITES NEGATIVE NEGATIVE 05/30/2017 3:52 PM CDT [facility] UROBILINOGEN NORMAL 0 - 1 EU/DL 05/30/2017 3:52 PM CDT [facility] LEUKOCYTES (U) NEGATIVE NEGATIVE 05/30/2017 3:52 PM CDT [facility] RBC/HPF 1 0 - 3 /HPF 05/30/2017 3:52 PM CDT [facility] WBC/HPF <1 0 - 6 /HPF 05/30/2017 3:52 PM CDT [facility] BACTERIA (U) NONE /HPF 05/30/2017 3:52 PM CDT [facility] SQUAMOUS EPITHELIALS 1 05/30/2017 3:52 PM CDT [facility] URINE SPECIMEN / Unknown 05/30/2017 3:33 PM CDT 05/30/2017 3:45 PM CDT us Generic Conversion Md MENDOZA URINE ORDERABLES Final Result [facility] [address] [place] [address], [id number] documented in this encounter Visit Diagnoses Not on filedocumented in this encounter Care Teams Service Director Relationship Specialty Start Date End Date Hermes Ramirez III, MD [address] [address] PCP - General FAMILY PRACTICE 06/20/17 documented as of this encounter
--- OUTSIDE RECORDS SUMMARY | 2024-03-20 11:57 | XMS_ITS | Encounter Summary ---
Author Organization [facility] Address [address] [place] [address]. [place], [place] [address] [place] [address] Care Team Providers Care Shipping And Receiving Assistant Name Role Phone Ashley ZUNIGA MD, Hermes Perez Primary Care Provid er Encounter Details Date Type Department Care Team (Latest Contact Info) Description 06/21/2017 Abstract [facility] Sekou Grimes MD [address] [place] [address] Social History Tobacco Use Types Packs/Day Years Used Date Smoking Tobacco: Every Day Cigarettes 0.5 15 Alcohol Use Standard Drinks/Week Comments No 0 (1 standard drink = 0.6 oz pur e alcohol) Comments Unknown Sex and Gender Information Value Date Recorded Sex Assigned at Not on file Legal Sex Female 9:15 PM MANIFOLD OPERATOR Gender Identity Not on file Sexual Orientation Not on file documented as of this encounter Discharge Summaries * Sekou Grimes MD - 06/21/2017 5:00 PM CDT [place] [address] [place] [address] Patient Name: MISHA JACKSON Date of : 1980 Med Rec #: [id number] Date of Service: 06/21/2017 Disch Date: Physician Discharge Summary Patient ID: Misha Jackson [id number] 36-year-old 1980 Admit date: 06/20/2017 Expected Discharge Date: 06/21/2017 Admitting Physician: Carmelita Sen MD Discharge Physician: Sekou Grimes MD Admission Diagnoses: Abdominal pain [R10.9] Rectus sheath hematoma [S30.1XXA] Discharge Diagnoses: rectus sheath hematoma Admission Condition: good Discharged Condition: good Indication for Admission: abdominal pain. Rectus sheath hematoma Hospital Course: uncomplicated. Pain controlled overnight and throughout the day. Hgb stable X4. Tolerated diet. Consults: none Code Status: Full Code Procedures: Procedures HEMOGLOBIN AND HEMATOCRIT Routine BASIC METABOLIC PANEL Routine CBC W/DIFF AUTOMATED Routine HEMOGLOBIN AND HEMATOCRIT Routine PROTHROMBIN TIME, VENOUS STAT PARTIAL THROMBOPLASTIN TIME,PTT STAT CT ABD+PEL WO CON STAT CBC W/DIFF AUTOMATED STAT COMPREHENSIVE METABOLIC PANEL STAT LACTIC ACID STAT MAGNESIUM STAT Referrals: No orders of the defined types were placed in this encounter. Significant Diagnostic Studies: CT scan showing rectus sheath hematoma Treatments: pain control Discharge Exam: Unchanged from previous. Tender to palpation in LLQ and over rectus muscle. No overlying skin changes Disposition: Final discharge disposition not confirmed Patient Instructions: Current Discharge Medication List START taking these medications Details hydrocodone-acetaminophen 10-325 MG tablet Take 1 tablet by mouth every 6 (six) hours as needed. Qty: 20 tablet, Refills: 0 CONTINUE these medications which have NOT CHANGED Details sodium bicarbonate 650 MG tablet Take 1,300 mg by mouth 3 (three) times daily. tacrolimus 1 MG capsule Take 2 mg by mouth 2 (two) times daily. Activity: activity as tolerated Diet: regular diet Wound Care: none needed Follow-up in the emergency department for worsened abdominal pain, hypotension, tachycardia. No f/u required with surgery. Signed: SEKOU GRIMES MD 06/21/2017 5:00 PM Signed by: SEKOU GRIMES 06/21/2017 5:04 PM documented in this encounter Plan of Treatment Not on file documented as of this encounter Visit Diagnoses Not on filedocumented in this encounter Care Teams Shipping And Receiving Assistant Relationship Specialty Start Date End Date Hermes Ramirez III, MD [address] [address] PCP - General FAMILY PRACTICE 06/20/17 documented as of this encounter
--- OUTSIDE RECORDS SUMMARY | 2024-03-20 11:57 | XMS_ITS | Encounter Summary ---
Author Organization [facility] Address [address] [place] [address]. [place] [address] [place] [address] Care Team Providers Care Storage Center Manager Name Role Phone Ashley ZUNIGA MD, Hermes Perez Primary Care Provid er Encounter Details Date Type Department Care Team (Latest Contact Info) Description 05/01/2017 Abstract [facility] Medical [facility] Social History Tobacco Use Types Packs/Day Years Used Date Smoking Tobacco: Never Assessed Comments Unknown Sex and Gender Information Value Date Recorded Sex Assigned at Not on file Legal Sex Female 9:15 PM BIOMEDICAL SPECIALIST Gender Identity Not on file Sexual Orientation Not on file documented as of this encounter Miscellaneous Notes * Letter - Lazara Lange Md, MD - 05/01/2017 10:27 AM CST Dear Ms. Browne, Our records indicate that you are due for lab work. Please call our office to make the necessary arrangements to have this done. Sincerely, Your Health Care Team Electronically signed by:Jennifer Gordon L.P.N. May 01 2017 10:31AM BIOMEDICAL SPECIALIST documented in this encounter Plan of Treatment Not on file documented as of this encounter Visit Diagnoses Not on filedocumented in this encounter Care Teams Storage Center Manager Relationship Specialty Start Date End Date Hermes Ramirez III, MD [address] [facility] [address] [place] [address] PCP - General FAMILY PRACTICE 06/20/17 documented as of this encounter
--- OUTSIDE RECORDS SUMMARY | 2024-03-20 11:57 | XMS_ITS | Encounter Summary ---
Author Organization [facility] Address [address] [place] [address]. [place], [place] [address] [place] [address] Care Team Providers Care Railway Signal Technician Name Role Phone Ashley ZUNIGA MD, Hermes Perez Primary Care Provid er Encounter Details Date Type Department Care Team (Latest Contact Info) Description 06/20/2017 Abstract [facility] Medical Group Social History Tobacco Use Types Packs/Day Years Used Date Smoking Tobacco: Every Day Cigarettes 0.5 15 Alcohol Use Standard Drinks/Week Comments No 0 (1 standard drink = 0.6 oz pur e alcohol) Comments Unknown Sex and Gender Information Value Date Recorded Sex Assigned at Not on file Legal Sex Female 9:15 PM PASSPORT SUPPORT ASSOCIATE Gender Identity Not on file Sexual Orientation Not on file documented as of this encounter Plan of Treatment Not on file documented as of this encounter Visit Diagnoses Not on filedocumented in this encounter Care Teams Railway Signal Technician Relationship Specialty Start Date End Date Hermes Ramirez III, MD [address] [facility] [address] [place] [address] PCP - General FAMILY PRACTICE 06/20/17 documented as of this encounter
--- OUTSIDE RECORDS SUMMARY | 2024-03-20 11:57 | XMS_ITS | Encounter Summary ---
Author Organization [facility] Address [address] [place] [address]. [place], [place] [address] [place] [address] Care Team Providers Care Math And Science Instructor Name Role Phone Unavailable Primary Care Provider Unavailabl e Encounter Details Date Type Department Care Team (Late st Contact Info) Description 05/22/[address] [facility] Emergency [address] [place] [address] Jade Kitchen MD [address] [place] [address] Social History Tobacco Use Types Packs/Day Years Used Date Smoking Tobacco: Never Assessed Comments Unknown Sex and Gender Information Value Date Recorded Sex Assigned at Not on file Legal Sex Female 9:15 PM BOWLING ALLEY OPERATOR Gender Identity Not on file Sexual Orientation Not on file documented as of this encounter Plan of Treatment Not on file documented as of this encounter Visit Diagnoses Diagnosis Otitis media of left ear Unspecified otitis media documented in this encounter
--- OUTSIDE RECORDS SUMMARY | 2024-03-20 11:57 | XMS_ITS | Encounter Summary ---
Author Organization [facility] Address [address] [place] [address]. [place] [address] [place] [address] Care Team Providers Care Rug Backing Stenciler Name Role Phone Unavailable Primary Care Provider Unavailabl e Encounter Details Date Type Department Care Team (Late st Contact Info) Description 03/01/2017 Emergency [facility] [address] [facility] [place] [place] [address] Su Mays MD [address] [address] Social History Tobacco Use Types Packs/Day Years Used Date Smoking Tobacco: Never Assessed Comments Unknown Sex and Gender Information Value Date Recorded Sex Assigned at Not on file Legal Sex Female 9:15 PM POISING INSPECTOR Gender Identity Not on file Sexual Orientation Not on file documented as of this encounter Plan of Treatment Not on file documented as of this encounter Procedures Procedure Name Priority Date/Time Associated Diagnosis Comments URINALYSIS COMPLETE W/RFX TO CULTURE STAT 03/01/2017 7:55 PM POISING INSPECTOR TEST URINE STAT 03/01/2017 7:55 PM POISING INSPECTOR documented in this encounter Results * TEST URINE (03/01/2017 7:55 PM POISING INSPECTOR) PREG TEST NEGATIVE NEGATIVE 03/01/2017 9:40 PM POISING INSPECTOR [facility] SPECIFIC GRAVITY (U) 1.008 03/01/2017 9:40 PM POISING INSPECTOR [facility] Comment: SPECIFIC GRAVITY IS LESS THAN 1.010. MILD INCREASES IN HCG MAY NOT BE DETECTED IN DILUTE URINE. IF CLINICALLY INDICATED, CONSIDER REPEAT TESTING IN 48 TO 72 HOURS WITH A FIRST MORNING SPECIMEN OR A SERUM TEST. URINE SPECIMEN / Unknown 03/01/2017 7:55 PM POISING INSPECTOR 03/01/2017 9:33 PM POISING INSPECTOR us Generic Conversion Md MEDNOZA URINE ORDERABLES Final Result [facility] [address] [address], [place] [phone] * URINALYSIS COMPLETE W/RFX TO CULTURE (03/01/2017 7:55 PM POISING INSPECTOR) SPECIMEN TYPE URINE CLEAN CATCH 03/01/2017 9:33 PM [facility] COLOR (U) STRAW 03/01/2017 9:41 PM [facility] TRANSPARENCY CLEAR 03/01/2017 9:41 PM [facility] SPECIFIC GRAVITY (U) 1.008 1.002 - 1.035 03/01/2017 9:41 PM [facility] U PH 7.0 5.0 - 9.0 03/01/2017 9:41 PM [facility] LEUKOCYTES (U) NEGATIVE NEGATIVE 03/01/2017 9:41 PM [facility] NITRITES NEGATIVE NEGATIVE 03/01/2017 9:41 PM [facility] PROTEIN (U) NEGATIVE NEGATIVE 03/01/2017 9:41 PM [facility] URINE GLUCOSE NEGATIVE NEGATIVE 03/01/2017 9:41 PM [facility] KETONES MG/DL (U) NEGATIVE NEGATIVE 03/01/2017 9:41 PM [facility] UROBILINOGEN < 2.0 0 - 1 EU/DL 03/01/2017 9:41 PM [facility] BILIRUBIN (U) NEGATIVE NEGATIVE 03/01/2017 9:41 PM [facility] BLOOD (U) NEGATIVE NEGATIVE 03/01/2017 9:41 PM [facility] CULTURE & SENSITIVITY INDICATED? CULTURE IS NOT INDICATED 03/01/2017 9:41 PM [facility] WBC/HPF 0-5 /HPF 03/01/2017 9:41 PM [facility] RBC/HPF 0-3 /HPF 03/01/2017 9:41 PM [facility] BACTERIA (U) RARE /HPF 03/01/2017 9:41 PM [facility] SQUAMOUS EPITHELIALS MODERATE 03/01/2017 9:41 PM [facility] 03/01/2017 7:55 PM POISING INSPECTOR 03/01/2017 9:33 PM [facility] us Generic Conversion Md MENDOZA URINE ORDERABLES Final Result [facility] [address] [place] [address], [place] [phone] documented in this encounter Visit Diagnoses Diagnosis Cyst of ovary Other and unspecified ovarian cyst documented in this encounter
--- OUTSIDE RECORDS SUMMARY | 2024-03-20 11:57 | XMS_ITS | Encounter Summary ---
Author Organization [facility] Address [address] [place] [address]. [place], [place] [id number] [place] [address] Care Team Providers Care Anodiser Name Role Phone Ashley ZUNIGA MD, Hermes Perez Primary Care Provid er Encounter Details Date Type Department Care Team (Latest Contact Info) Description 06/10/2017 Abstract [facility] Social History Tobacco Use Types Packs/Day Years Used Date Smoking Tobacco: Never Assessed Comments Unknown Sex and Gender Information Value Date Recorded Sex Assigned at Not on file Legal Sex Female 9:15 PM AIR QUALITY TECHNICIAN Gender Identity Not on file Sexual Orientation Not on file documented as of this encounter Plan of Treatment Not on file documented as of this encounter Visit Diagnoses Not on filedocumented in this encounter Care Teams Anodiser Relationship Specialty Start Date End Date Hermes Ramirez III, MD [address] [facility] [address] [place] [address] PCP - General FAMILY PRACTICE 06/20/17 documented as of this encounter
--- OUTSIDE RECORDS SUMMARY | 2024-03-20 11:57 | XMS_ITS | Encounter Summary ---
Author Organization [facility] Address [address] [place] [address]. [place] [address] [place] [address] Care Team Providers Care Creative Writing Professor Name Role Phone Unavailable Primary Care Provider Unavailabl e Encounter Details Date Type Department Care Team (Late st Contact Info) Description 05/04/2017 Orders Only [place] [address] , Generic Conversion, Social History Tobacco Use Types Packs/Day Years Used Date Smoking Tobacco: Never Assessed Comments Unknown Sex and Gender Information Value Date Recorded Sex Assigned at Not on file Legal Sex Female 9:15 PM REPAIR DEPARTMENT MANAGER Gender Identity Not on file Sexual Orientation Not on file documented as of this encounter Plan of Treatment Not on file documented as of this encounter Procedures Procedure Name Priority Date/Time Associated Diagnosis Comments URINALYSIS NOW 11/24/2016 9:01 AM CDT documented in this encounter Results * URINALYSIS (11/24/2016 9:01 AM CDT) COLOR (U) STRAW 11/24/2016 9:[address] [facility] TRANSPARENCY CLEAR 11/24/2016 9:[address] [facility] SPECIFIC GRAVITY (U) 1.004 1.002 - 1.035 11/24/2016 9:[address] [facility] U PH 7.0 5 - 8 11/24/2016 9:[address] [facility] PROTEIN (U) NEGATIVE NEGATIVE 11/24/2016 9:[address] [facility] URINE GLUCOSE NEGATIVE NEGATIVE MG/DL 11/24/2016 9:[address] [facility] KETONES MG/DL (U) NEGATIVE NEGATIVE 11/24/2016 9:[address] [facility] BILIRUBIN (U) NEGATIVE NEGATIVE 11/24/2016 9:[address] [facility] BLOOD (U) NEGATIVE NEGATIVE 11/24/2016 9:[address] [facility] NITRITES NEGATIVE NEGATIVE 11/24/2016 9:[address] [facility] UROBILINOGEN NORMAL 0 - 1 EU/DL 11/24/2016 9:[address] [facility] LEUKOCYTES (U) NEGATIVE NEGATIVE 11/24/2016 9:[address] [facility] RBC/HPF NONE /HPF 11/24/2016 9:[address] [facility] WBC/HPF <1 /HPF 11/24/2016 9:[address] [facility] BACTERIA (U) NONE /HPF 11/24/2016 9:[address] [facility] SQUAMOUS EPITHELIALS <1 11/24/2016 9:[address] [facility] URINE SPECIMEN / Unknown 11/24/2016 8:15 AM CDT us Generic Conversion Md MENDOAZ URINE ORDERABLES Final Result [facility] [address] [place] [address], [id number] documented in this encounter Visit Diagnoses Not on filedocumented in this encounter
--- OUTSIDE RECORDS SUMMARY | 2024-03-20 11:57 | XMS_ITS | Encounter Summary ---
Author Organization [facility] Address [address] [place] [address]. [place], [place] [address] [place] [address] Care Team Providers Care Italian Lecturer Name Role Phone Ashley ZUNIGA MD, Hermes Perez Primary Care Provid er Encounter Details Date Type Department Care Team (Latest Contact Info) Description 05/19/2017 Abstract [facility] Medical Group Lazara Case MD Social History Tobacco Use Types Packs/Day Years Used Date Smoking Tobacco: Never Assessed Comments Unknown Sex and Gender Information Value Date Recorded Sex Assigned at Not on file Legal Sex Female 9:15 PM INTELLIGENCE OPERATIONS SPECIALIST Gender Identity Not on file Sexual Orientation Not on file documented as of this encounter Last Filed Vital Signs Vital Sign Reading Time Taken Comments Blood Pressure 122/76 05/19/2017 1:34 PM INTELLIGENCE OPERATIONS SPECIALIST Pulse 70 05/19/2017 1:34 PM INTELLIGENCE OPERATIONS SPECIALIST Temperature - - Respiratory Rate - - Oxygen Saturation - - Inhaled Oxygen Concentration - - Weight 68 kg (150 lb) 05/19/2017 1:34 PM INTELLIGENCE OPERATIONS SPECIALIST Height 157.5 cm (5' 2 ) 05/19/2017 1:34 PM INTELLIGENCE OPERATIONS SPECIALIST Body Mass Index 27.44 05/19/2017 1:34 PM INTELLIGENCE OPERATIONS SPECIALIST documented in this encounter Progress Notes * Maria Isabel Jennings MD - 05/19/2017 12:00 AM CST Patient Visit Note Active Problems ? Abnormal Pap Smear - Lgsil ? Cervical Dysplasia ? A63.0 - Condyloma Acuminatum ? 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 Z94.4 - Liver Transplant Recipient Chief Complaint ? The Chief Complaint is: Annual exam. . Reason For Visit ? Gynecologic annual exam. . History of Present Illness This is a 36 year old Female with the following history: Positive Symptoms ? Pelvic pain R ovary pain . Pertinent negative symptoms: No systemic symptoms, no gastrointestinal symptoms and no genitourinary symptoms Other History ? Medication list reviewed. Allergies ? Aspirin ? Rocael-Tab (Erythromycin) ? Tetracaine HCl ? Toradol (Ketorolac) ? Tylenol #3 (Acetaminophen + Codeine) Reaction: Skin Rashes, Hives Current Medication ? Aldara 5% External Cream as directed appy to area 3 times a week at hs. Max 16 weeks., 30 days, 2refills ? HYDROmorphone HCl 2MG Oral Tablet 1 every 4 - 6 hours as needed, 30 days, 0 refills ? Prograf 1MG Oral Capsule, conventional 2 twice a day 0 days, 0 refills ? Sodium Bicarbonate 650MG Oral Tablet 2 three times a day 0 days, 0 refills Subjective The patient is a 36 -year-old female who presents for annual exam. She complains of pelvic pain, which is longstanding in history. Chief Complaint The Chief Complaint is: Annual exam. Past Medical/Surgical History Reported: Last pap smear date 04/2016 NML done at office. Surgical / Procedural: Surgical / procedural history Liver Transplant 1992 double hernia 1986 [place] procedure 1982. Prior surgery Left breast fibroadenoma. Pt has a history of VIN3 and IFEANYI 3. Has seen in [place] in the past. Recent Hospitalizatiion for Pancreatitis 09/2016. : 3 and para 2. Liver transplant 1992. Procedural: ? Thermal endometrial ablation Surgical: ? Tubal ligation 05/22/2012 Social History Behavioral: Cigarette smoking, smoking status: Current everyday smoker, and smoking status: Currenteveryday smoker 1 ppd for 15 + years. Alcohol: No consumption of alcohol. Drug Use: Not using drugs. Work: Occupation was unknown. Marital: Currently . Sexual: Sexually active. Pt is and has 2 children. Review Of Systems Systemic: No systemic symptoms. Gastrointestinal: No gastrointestinal symptoms. Genitourinary: No genitourinary symptoms. Physical Findings ? Vitals taken 05/19/2017 01:34 pm BP-Sitting 122/76 mmHg Pulse Rate-Sitting 70 bpm Height 62 in Weight 150 lbs Body Mass Index 27.4 kg/m2 Body Surface Area 1.69 m2 General Appearance: ?? In no acute distress. Head: ?? [...] Urinary System: Urethra: ?? Normal. Genitalia: External: ? Genitalia showed abnormalities with erythematous area. Pelvic: Vagina: ?? Mucosa was normal. ?? No vaginal discharge was observed. ?? No cystocele was observed. ?? No rectocele was observed Shei s tender to palpation throughout the lower abdomen, right adnexal fullness. Musculoskeletal System: General/bilateral: ?? Musculoskeletal system: normal. Neurological: ?? System: normal. Skin: ?? Normal. Tests Urinalysis Was Performed: Urinalysis Results: Value Urine protein 0 + Urine glucose 0 + Therapy ? Clinical summary provided to patient. Counseling/Education ? Instructions for patient: Breast Self Exam discussed in detail and the technique was reviewed. The patient verbalized understanding ? Patient education: Osteoporosis Screening/Bone Density Testing ? Patient education: Exercise ? Patient education: Calcium Supplements ? Patient education: Diet/Weight Control ? Patient education: Self Breast Exam and Mammograms ? Patient education: Folic Acid Supplements ? Smoking cessation advised Plan ? Encntr for tobacco conditioner exam (general) (routine) w/o abn findings Lab: PAP, THINPREP W/HPV when ASCUS or above We will await todays Pap smear. We will order a pelvic ultrasound. She will have an appointment in one week with Dr. Laws concerning possibly diagnostic laparoscopy. She will see me back in 2 weeksto reevaluate the healing process on the mons pubis and vulva, p.r.n. problems. Care Team [facility] Maria Isabel Jennings MD Electronically signed by: MARIA ISABEL JENNINGS Date: 06/06/2017 14:46 * Maria Isabel Jennings MD - 05/19/2017 12:00 AM CST Patient Visit Note History of Present Illness This is a 36 year old Female with the following history: Positive Symptoms Pertinent negative symptoms: Other History Tests Imaging: An ultrasound was performed by: LG. Ultrasound Trans-Vaginal: Value Endometrium thickness 2.5 mm R ovary length 27 mm L ovary depth 17 mm R ovary width 22 mm L ovary width 21 mm L ovary length 30 mm No uterine enlargement, does not have a mass lesion, no enlargement of the right ovary, not on the left, no mass on the right ovary, and not on the left. 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 Maria Isabel Jennings MD Electronically signed by: MARIA ISABEL JENNINGS Date: 05/24/2017 11:44 documented in this encounter Plan of Treatment Not on file documented as of this encounter Procedures Procedure Name Priority Date/Time Associated Diagnosis Comments THINPREP IMAGING SYSTEM PAP Routine 05/19/2017 3:07 PM INTELLIGENCE OPERATIONS SPECIALIST documented in this encounter Results * (ABNORMAL) THINPREP IMAGING SYSTEM PAP (05/19/2017 3:07 PM INTELLIGENCE OPERATIONS SPECIALIST) THIN PREP PAP (A) [facility] CONVERSION Comment: Patient Name: MISHA JACKSON Specimen #: [id number] ?? Procedure Date: 05/19/2017 /Age: 7 1980 (Age: 36) Gender: ??F Accessioned: 05/22/2017 Address: [address] ??[address] Reported: 05/30/2017 ?? Encounter: [id number] Location: [facility] [employer] [facility] ?? Physician(s): MARIA ISABEL JENNINGS MD ?? : ? CYTOPATHOLOGY - GYNECOLOGIC REPORT Diagnosis: TEST NAME: ??THINPREP PAP WITH PAYROLL ASSOCIATE,REFLEX HPV-ASCUS AND ABOVE INTERPRETATION/RESULT: EPITHELIAL CELL ABNORMALITY: ATYPICAL SQUAMOUS CELLS OF UNDETERMINED SIGNIFICANCE. FUNGAL ORGANISMS MORPHOLOGICALLY CONSISTENT WITH TRACEY SPECIES ARE PRESENT. SPECIMEN FORWARDED FOR FURTHER HPV EVALUATION. STATEMENT OF ADEQUACY: SATISFACTORY FOR EVALUATION; ENDOCERVICAL/TRANSFORMATION ZONE COMPONENT PRESENT. ?? YXM CRISTHIAN MUNGUIA MD [facility]/05/26/2017 Report Electronically Signed ? Procedures/Addenda HPV mRNA E6/E7: ABNORMAL Interpretation: HPV mRNA E6/E7: ? Positive - HPV mRNA Detected THIS HIGH RISK HPV mRNA ASSAY DETECTS FOURTEEN HIGH-RISK HPV TYPES (16,18,31,33,35,39,45,51,52,56,58,59,66,68) WITHOUT DIFFERENTIATION. ? DOMO MARTÍNEZ ? HPV mRNA E6/E7 Electronically Signed Specimen: THINPREP PAP WITH PAYROLL ASSOCIATE,REFLEX HPV-ASCUS AND ABOVE Clinical Diagnosis and History Date of Last Menstrual Period: ? , Specimen Source: Cervical/Endocervical ? PAP SMEARS ARE SCREENING TESTS SUBJECT TO BOTH FALSE NEGATIVE AND FALSE POSITIVE RESULTS EVIDENCED BY DATA PUBLISHED IN THE MEDICAL LITERATURE. YOUR PATIENT'S RESULT SHOULD BE INTERPRETED IN THIS CONTEXT, TOGETHER WITH THE PATIENT'S HISTORY AND CLINICAL FINDINGS. 05/19/2017 3:07 PM INTELLIGENCE OPERATIONS SPECIALIST Narrative [facility] TO EPIC CONVERSION - 05/19/2017 3:07 PM INTELLIGENCE OPERATIONS SPECIALIST [Task Forwarded to [facility]] notify and sched. ata with [facility] us Maria Isabel Jennings MD PATHOLOGY/CYTOLOGY ORDERAB LES Edited Result - Final [facility] TO EPIC CONVERSION documented in this encounter Visit Diagnoses Not on filedocumented in this encounter Care Teams Italian Lecturer Relationship Specialty Start Date End Date Hermes Ramirez III, MD [address] [facility] [address] [place] [address] PCP - General FAMILY PRACTICE 06/20/17 documented as of this encounter
--- OUTSIDE RECORDS SUMMARY | 2024-03-20 11:57 | XMS_ITS | Encounter Summary ---
Author Organization [facility] Address [address] [place] [address]. [place], [place] [id number] [place] [id number] Care Team Providers Care Architecture Instructor Name Role Phone Ashley ZUNIGA MD, Sherry Perez Primary Care Provid er Reason for Referral * Imaging (Emergency) - Closed Specialty Diagnoses / Procedures Referred By Contac t Referred To Contact Procedures CT ABD+PEL WO CON CT ABD+PEL W CON Megan Brenner MD Referral ID Status Reason Start Date Expiration Date Visits Re quested Visits Authorized [id number] Closed 06/20/2017 07/20/2018 1 1 Reason for Visit * Reason Comments Abdominal Pain * Auth/Cert Specialty Diagnoses / Procedures Referred By Contac t Referred To Contact Diagnoses Abdominal pain Rectus sheath hematoma Rectus sheath hematoma Rectus sheath hematoma, initial encounter Procedures GENERAL Referral ID Status Reason Start Date Expiration Date Visits Re quested Visits Authorized [id number] 1 1 Encounter Details Date Type Department Care Team (Latest Contact Info) Description 06/20/2017 7:20 PM CDT - 06/21/2017 6:05 PM CDT Hospital Encounter [facility] [address] [place], [place] [id number] Licha Costa MD [address] [place], [place] [id number] Abdominal Pain Discharge Disposition: Home or Self Care (Routine Discharge) Social History Tobacco Use Types Packs/Day Years Used Date Smoking Tobacco: Every Day Cigarettes 0.5 15 Alcohol Use Standard Drinks/Week Comments No 0 (1 standard drink = 0.6 oz pur e alcohol) Comments Unknown Sex and Gender Information Value Date Recorded Sex Assigned at Not on file 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 Gender Identity Not on file Sexual Orientation Not on file documented as of this encounter Last Filed Vital Signs Vital Sign Reading Time Taken Comments Blood Pressure 118/71 06/21/2017 12:56 PM CDT Pulse 80 06/21/2017 12:56 PM CDT Temperature 36.7 ??C (98.1 ??F) 06/21/2017 12:56 PM C DT Respiratory Rate 18 06/21/2017 12:56 PM CDT Oxygen Saturation 98% 06/21/2017 12:56 PM CDT Inhaled Oxygen Concentration - - Weight 73.2 kg (161 lb 6 oz) 06/20/2017 4:24 PM CDT Height 157.5 cm (5' 2 ) 06/20/2017 4:24 PM CDT Body Mass Index 29.52 06/20/2017 4:24 PM CDT documented in this encounter Discharge Summaries * Sekou Grimes MD - 06/21/2017 5:04 PM CDT Physician Final Progress Note Patient ID: Elsa Browne [id number] 36-year-old 1980 Admit date: 06/20/2017 Outcome of Hospitalization: successful? Hgb stable, pain controlled, stable for discharge. Disposition: Final discharge disposition not confirmed Provisions for Follow Up Care: See discharge summary for recommendations Principal Diagnoses: Rectus sheath hematoma, initial encounter Signed: SEKOU GRIMES MD 06/21/2017 5:04 PM * Sekou Grimes MD - 06/21/2017 5:00 PM CDT Physician Discharge Summary Patient ID: Elsa Browne [id number] 36-year-old 1980 Admit date: 06/20/2017 Expected Discharge Date: 06/21/2017 Admitting Physician: Licha Costa MD Discharge Physician: Sekou Grimes MD Admission [...] for worsened abdominal pain, hypotension, tachycardia. No f/urequired with surgery. Signed: SEKOU GRIMES MD 06/21/2017 5:00 PM documented in this encounter Medications at Time of Discharge hydrocodone-acetam inophen 10-325 MG tablet Take 1 tablet by mouth every 6 (six) hours as needed. 20 tablet 06/21/2017 07/01/2017 lorazepam (ATIVAN) 0.5 MG tablet Take 1 [...] daily. 02/12/2019 documented as of this encounter Progress Notes * Sekou Grimes MD - 06/21/2017 9:33 AM CDT PROGRESS NOTE (Brief) - Acute Care Surgery Name: Elsa Browne Date of : 1980 Room/Bed: [facility] Date: 06/21/2017 Time: 9:33 AM Diagnoses: Principal Problem: Rectus sheath hematoma, initial encounter SNOMED CT(R): HEMATOMA OF RECTUS SHEATH Present on Admission: ??? Rectus sheath hematoma, initial encounter PROCEDURE(s): none POD#(s): none LOS: 1 day Interim History (Last 24 Hours): Poor pain control overnight. Most recent VS: Filed Vitals: 06/20/17 2208 06/21/17 0027 06/21/17 0359 06/21/17 0830 BP: 113/65 114/65 Pulse: 84 85 77 83 Resp: Temp: 98.2 ??F (36.8 ??C) 98.1 ??F (36.7 ??C) 97.9 ??F (36.6 ??C) TempSrc: Oral Oral Oral SpO2: 100% 100% 99% 99% Weight: Height: Physical Exam: NAD. Nontoxic Unremarkable exam. No external signs of hematoma Labs: Hgb 9.8 -> 9.7-> 9.0 Imaging: CT scan reviewed. Rectus sheath hematoma ASSESSMENT/PLAN: -hgb stable. Drop from 9.8 to 9 likely dilutional. IVFs stopped. -pain medication changed to [place] + Morphine -hgb pending for 1100. If stable and pain controlled -> will discharge today Discussed with patient who has had a chance to ask questions and have them answered. The patient has voiced understanding and agrees to the current plan of management. Sekou Grimes MD, FACS [facility] [place] Surgery Update: -pain controlled with norco. Tolerating diet. Hgb continued stable. Stable for discharge to home. -return to the emergency department if develops worsened pain, tachycardia, or dizziness. documented in this encounter H&P Notes * Licha Costa MD - 06/20/2017 10:25 PM CDT Attending Provider: Licha Costa MD PCP: SHERRY RAMIREZ III CC: LLQ abdominal pain Elsa Browne is an 36-year-old female. 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 She had begun doing sit ups, etc., and last /Monday noted some discomfort in the left lower quadrant. Last night, she reached up to get something up high and felt a pop with subsequent worsening pain at the left lower quadrant. She presented to her PCP this morning who was going to begin workup for a possible incisional hernia as the pain is located in proximity to her scar, with a recommendation if the pain did not improve to go to the emergency room. Therefore, this afternoon she presented to the ER. ER workup included CT scan of the abdomen and pelvis without contrast which showed a left rectus abdominis sheath hematoma. General surgery was consulted from the ER for evaluation and management. I saw the patient in the ER. She notes that some of the listed allergies are not true allergies, but rather medications she is not to take due to the chronic kidney disease. The only true allergy she has is codeine which causes pruritus. She has taken Nubain in the past without problem. She has received fentanyl in the ER thisafternoon 50 mcg ??2 which has not helped at all. She is agreeable to trying Nubain again. She is aware that the hospital is on Dilaudid IV shortage. Past Medical History: Diagnosis Date ??? Anemia ??? Biliary atresia congenital ??? Chronic kidney disease ??? Thrombocytopenia Chronic kidney disease History of anemia History of thrombocytopenia Allergies: She notes that some of the listed allergies are not true allergies, but rather medications she is not to take due to the chronic kidney disease. The only true allergy she has is codeine which causes pruritus. She has taken Nubain in the past without problem. Allergies Allergen Reactions ??? Aspirin Other (see comment) C ??? Codeine Itching ??? Toradol [Ketorolac Tromethamine] Other (see comment) KIDNEY Social History Substance Use Topics ??? Smoking status: Current Every Day Smoker Packs/day: 0.50 Years: 15.00 ??? Smokeless tobacco: Not on file ??? Alcohol use No Past Surgical History: Procedure Laterality Date ??? SECTION ??? INGUINAL HERNIA Bilateral age 5 ??? LIVER TRANSPLANTATION Kasai Procedure at age 8, including appendectomy and cholecystectomy Cone biopsies Family History Problem Relation Age of Onset ??? Diabetes Neg Hx ROS (+) abd/GI; all other ROS otherwise negative relative to the HPI Travel Exposure: Traveled outside of the [place] in the last month: No No current facility-administered medications on file prior to encounter. No current outpatient prescriptions on file prior to encounter. Home meds: Tacrolimus 2 mg BID, Sodium Bicarbonate tablets 650 mg -- 1300 mg (2 tabs) TID Principal Problem: Rectus sheath hematoma, initial encounter SNOMED CT(R): HEMATOMA OF RECTUS SHEATH Blood pressure 113/65, pulse 85, temperature 98.2 ??F (36.8 ??C), temperature source Oral, resp. rate 18, height 5' 2 (1.575 m), weight 73.2 kg (161 lb 6 oz), SpO2 100 %. ROS (+) abd/GI; all other ROS otherwise negative relative to the HPI Physical Exam Gen: WDWN WF, NAD, non-toxic; pleasant, conversant Neuro: A & O x 3; no focal deficits HEENT: AT/NC; PERRL; EOMI; MMM Neck: Supple, no JVD CV: RRR Pulm: CTAB Abd: Soft, ND; mild-mod TTP LLQ; no external signs of trauma; non-peritoneal; benign : deferred Ext: MATTHEW x 4; palpable distal pulses Skin: Warm and dry Psych: Normal mood, normal affect Labs/Rads: Personally reviewed. Ref. Range 06/20/2017 20:07 06/20/2017 20:57 06/20/2017 21:53 SODIUM Latest Ref Range: 135 - 147 MMOL/L 143 POTASSIUM Latest Ref Range: 3.5 - 5.0 MMOL/L 4.0 CHLORIDE Latest Ref Range: 98 - 107 MMOL/L 114 (H) CO2 Latest Ref Range: 22 - 29 MMOL/L 21.0 (L) ANION GAP Latest Units: MMOL/L 8.0 BUN Latest Ref Range: 7 - 19 MG/DL 21 (H) CREATININE Latest Ref Range: 0.60 - 1.10 MG/DL 1.72 (H) eGFR Non-Afr. Amer. Latest Ref Range: >60 ML/MIN/1.73 M2 34 (L) eGFR Afr. Amer. Latest Ref Range: >60 ML/MIN/1.73 M2 41 (L) GLUCOSE Latest Ref Range: 70 - 109 MG/DL 93 CALCIUM Latest Ref Range: 8.4 - 10.2 MG/DL 8.5 TOTAL PROTEIN Latest Ref Range: 6.0 - 8.3 G/DL 5.8 (L) ALBUMIN Latest Ref Range: 3.4 - 4.9 G/DL 3.2 (L) TOTAL BILIRUBIN Latest Ref Range: 0.2 - 1.2 MG/DL 1.3 (H) ALK PHOS Latest Ref Range: 37 - 98 U/L 268 (H) AST Latest Ref Range: 5 - 35 U/L 61 (H) ALT Latest Ref Range: 0 - 55 U/L 29 MAGNESIUM Latest Ref Range: 1.6 - 2.6 MG/DL 1.8 OSMOLALITY (CALC) Latest Units: MOSM/KG 288 LACTIC ACID Latest Ref Range: 0.5 - 2.0 MMOL/L 0.8 WBC Latest Ref Range: 4.0 - 10.8 x10'3/uL 4.5 RBC Latest Ref Range: 4.10 - 5.40 x10'6/uL 2.93 (L) HGB Latest Ref Range: 12.0 - 16.0 G/DL 9.8 (L) HCT Latest Ref Range: 36.0 - 47.0 % 28.8 (L) MCV Latest Ref Range: 78.0 - 100.0 FL 98.3 MCH Latest Ref Range: 27.0 - 31.0 PG 33.4 (H) MCHC Latest Ref Range: 33.0 - 36.0 G/DL 34.0 RDW Latest Ref Range: 11.5 - 14.5 % 13.9 PLT Latest Ref Range: 150 - 350 x10'3/uL 61 (L) MPV Latest Ref Range: 7.4 - 10.4 FL 11.4 (H) ABS. NEUTROPHILS TOTAL Latest Ref Range: 1.60 - 8.30 x10'3/uL 3.07 ABS. IMMATURE GRANULOCYTES Latest Ref Range: 0.00 - 0.03 x10'3/uL 0.02 ABS. LYMPHOCYTES Latest Ref Range: 0.80 - 4.70 x10'3/uL 0.91 ABS. MONOCYTES Latest Ref Range: 0.00 - 1.50 x10'3/uL 0.33 ABS. EOSINOPHILS Latest Ref Range: 0.00 - 0.40 x10'3/uL 0.12 ABS. BASOPHILS Latest Ref Range: 0.00 - 0.20 x10'3/uL 0.01 ABS. NUCLEATED RBC'S Latest Ref Range: 0.0 x10'3/uL 0.00 Protime Latest Ref Range: 11.6 - 14.3 SEC 14.3 INR Latest Ref Range: 0.9 - 1.1 1.1 PTT Latest Ref Range: 22.0 - 35.[address] Abd+pel Wo Con Result Date: 06/20/2017 EXAMINATION: CT Chest, Abdomen, and Pelvis with and without contrast CLINICAL HISTORY: Patient notes pain and swelling around scar; surgery 5 years ago. COMPARISON: 09/20/2016 TECHNIQUE: Computed tomography of the chest, abdomen, and pelvis was obtained without contrast. A dose lowering technique was used for this procedure, which may include, but is not limited to, dose reduction technique, automated exposure control, the use of iterative reconstruction, and ALARA (As Low As ReasonablyAchievable) / Image Gently techniques. FINDINGS: The visualized lungs are clear. The heart size is enlarged and there is a trace amount of pericardial fluid, both unchanged on the previous study. There are no pericardial effusions. No pleural effusions are present. Pneumobilia is present, however it is stable and consistent with previous hepatic transplantation. The gallbladder is surgically absent. There is no splenomegaly. The kidneys appear normal. The bowel is normal in course and caliber. There is no bowel wall thickening. No mesenteric lymphadenopathy. There has been interval decrease in size of a heterogeneous mass adjacent to the left side of the uterus now measuring 4 x 3.2 cm; likely representing a large subserosal pedunculated fibroid. The bladder is normal in appearance. Thereis no inguinal lymphadenopathy. There is a heterogeneous appearance just superficial to the scar site. There is asymmetry of the rectus abdominis muscles. The left rectus abdominis containsa fluid collection, likely blood. There is free fluid and stranding within the pelvis, likely related to the rectus sheath hematoma. There are no lytic or blastic osseous lesions. IMPRESSION: 1. Left rectus abdominous sheath hematoma. 2. Free fluid, likely blood in the pelvis secondary to rectus abdominis sheath hematoma or less likely from ruptured fibroid. 3. Interval decrease in size of uterine fibroid adjacent to the left side of the uterus. 4. Stable pneumobilia. The attending radiologist has reviewed the image(s) and agrees with the content of this report. These results were relayed via telephone to the patient's ER physician, Dr. Lezama, at 2140 hours on 06/20/2017. 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 She had begun doing sit ups, etc., and last /Monday noted some discomfort in the left lower quadrant. Last night, she reached up to get something up high and felt a pop with subsequent worsening pain at the left lower quadrant. Diagnostic imaging by CT scan of the abdomen pelvis without contrast has demonstrated a left rectus sheath hematoma. Labs demonstrate chronic anemia, and the known thrombocytopenia. Her thrombocytopenia may aggravate the new hematoma. Will manage the patient conservatively at the outset, with serial H&H's. There are no acute surgical indications at thistime. I do not feel she has an indication for platelet transfusion at this time. Her coags are normal at this time. Keep n.p.o. except medications for now. IV fluids. Pain management. Pulmonary toilet. Bed rest with bathroom privileges at this time. Follow-up a.m. Labs. Expectant management. I have resumed her home medications of tacrolimus and sodium bicarb. VTE PPx -- SCDs only; pharmaceutical DVT PPx contraindicated at this time due to bleeding/hematoma. Plan of care discussed with the patient who verbalized understanding. LICHA COSTA MD 06/21/2017 documented in this encounter Nursing Notes * Soheila White RN - 06/21/2017 7:55 AM CDT Per patient, abdominal pain is 8/10. She states the PO Dilaudid and the IV Nubain are not working. Dr. Grimes notified and patient's concerns discussed with him. He is going to enter new pain medication orders. Danis White RN documented in this encounter ED Notes * Megan Brenner MD - 06/20/2017 9:24 PM CDT Emergency Department Note Chief Complaint Chief Complaint Patient presents with ??? Abdominal Pain History of Present Illness Patient is a 36-year-old female with past medical history of liver transplant secondary to biliary atresia and subsequent chronic kidney disease due to tacrolimus who presents the emergency department with abdominal pain. She reports that she was doing sit ups when she felt a pop and had a subsequent bulge and pain along her section scar. The pain is been constant. It is moderate to severe in intensity and has no exacerbating or alleviating factors. She has not taken anything for the pain. The patient endorses nausea from the pain but has had no vomiting. She has had no changes in bowel movements. The patient reports a history of inguinal hernias as a child but has had no other hernias. She has no other complaints at this time and reports that her liver transplant has been doing well. She endorses long-term anemia and thrombocytopenia. Medical History ALLERGIES: Allergies Allergen Reactions ??? Aspirin Other (see comment) C ??? Codeine Itching ??? Toradol [Ketorolac Tromethamine] Other (see comment) KIDNEY MEDICATIONS: Prior to Admission medications Medication Sig Start Date End Date Taking? Authorizing Provider sodium bicarbonate 650 MG tablet Take 1,300 mg by mouth 3 (three) times daily. Yes Doc Abstract tacrolimus 1 MG capsule Take 2 mg by mouth 2 (two) times daily. Yes Doc Abstract PAST MEDICAL HISTORY: Past Medical History: Diagnosis Date ??? Biliary atresia congenital History of biliary atresia and chronic kidney disease PAST SURGICAL HISTORY: Past Surgical History: Procedure Laterality Date ??? SECTION ??? LIVER TRANSPLANTATION FAMILY HISTORY: Family History Problem Relation Age of Onset ??? Diabetes Neg Hx SOCIAL HISTORY: Social History Substance Use Topics ??? Smoking status: Current Every Day Smoker Packs/day: 0.50 Years: 15.00 ??? Smokeless tobacco: None ??? Alcohol use No Review of Systems Review of Systems General: No fevers or chills Head: No head injury Neck: No neck pain Eyes: No vision changes, discharge, or pain Ears: No pain Mouth/Throat: No mouth or throat pain Respiratory: No shortness of breath Cardiac: No chest pain Abdomen: As in HPI Genitourinary: No dysuria or hematuria Neuro: No headaches, no numbness/tingling Psych: no SI/HI Immune System: Immunocompromised Heme: As in HPI Physical Exam Filed Vitals: 06/20/17 1624 06/20/17 1626 06/20/17201406/20/17 2208 BP: 124/83 127/78 113/65 Pulse: 101 90 84 Resp: 18 14 19 Temp: 98.8 ??F (37.1 ??C) TempSrc: Oral SpO2: 100% 99% 100% Weight: 73.2 kg (161 lb 6 oz) Height: 5' 2 (1.575 m) Physical Exam General: Well appearing, no apparent distress Skin: No rashes, no lacerations, warm, dry, normal color for ethnicity Head: normocephalic, atraumatic Eyes: pupils equally and reactive to light, conjunctiva clear, no scleral inflammation or icterus, extraocular movements intact Ears: Normal external ears Nose: No congestion, patent nares Mouth: Moist mucous membranes, no tonsillar exudates, no palatal petechiae, no erythema Neck: No tenderness, no midline tenderness, no lymphadenopathy, full range of motion Chest/respiratory: Symmetric expansion, no chest wall tenderness, no respiratory distress, lungs clear to auscultation bilaterally without wheezes, rhonchi, or rales, no pleural rubs, no digital clubbing Cardiac: Regular rate and rhythm without murmurs, rubs, or gallops, capillary refill less than 2 seconds, no cyanosis Pulses: Equal radial pulses bilaterally, equal dorsalis pedis pulses bilaterally Gastrointestinal: Nondistended, normal bowel sounds, no hypertympany to percussion, moderate tenderness along the section scar without appreciable mass or hernia, no palpable masses, negative Simms??s sign, no focal tenderness at McBurney??s point Genitourinary: No costovertebral angle tenderness, no suprapubic tenderness, genital exam deferred musculoskeletal: No deformities, normal gait, strength intact, full range of motion, no tenderness Neurologic: no sensory deficits, CN II-XII intact, symmetric facial movements Psych: Appropriate mood and affect, no depressive symptoms Bedside Ultrasound Findings Hypoechoic, likely fluid collection, underlying the skin along the area of pain superior to the section scar, no visible hernia or fascial plane defect Diagnostic Studies / Procedures LABORATORY STUDIES: Results for orders placed or performed during the hospital encounter of 06/20/17 CBC W/DIFF AUTOMATED Result Value Ref Range WBC 4.5 4.0 - 10.8 x10'3/uL RBC 2.93 (L) 4.10 - 5.40 x10'6/uL HGB 9.8 (L) 12.0 - 16.0 G/DL HCT 28.8 (L) 36.0 - 47.0 % MCV 98.3 78.0 - 100.0 FL MCH 33.4 (H) 27.0 - 31.0 PG MCHC 34.0 33.0 - 36.0 G/DL RDW 13.9 11.5 - 14.5 % PLT 61 (L) 150 - 350 x10'3/uL MPV 11.4 (H) 7.4 - 10.4 FL ABS. NEUTROPHILS TOTAL 3.07 1.60 - 8.30 x10'3/uL ABS. LYMPHOCYTES 0.91 0.80 - 4.70 x10'3/uL ABS. MONOCYTES 0.33 0.00 - 1.50 x10'3/uL ABS. EOSINOPHILS 0.12 0.00 - 0.40 x10'3/uL ABS. BASOPHILS 0.01 0.00 - 0.20 x10'3/uL ABS. IMMATURE GRANULOCYTES 0.02 0.00 - 0.03 x10'3/uL ABS. NUCLEATED RBC'S 0.00 0.0 x10'3/uL COMPREHENSIVE METABOLIC PANEL Result Value Ref Range SODIUM 143 135 - 147 MMOL/L POTASSIUM 4.0 3.5 - 5.0 MMOL/L CHLORIDE 114 (H) 98 - 107 MMOL/L CO2 21.0 (L) 22 - 29 MMOL/L GLUCOSE 93 70 - 109 MG/DL BUN 21 (H) 7 - 19 MG/DL CREATININE 1.72 (H) 0.60 - 1.10 MG/DL CALCIUM 8.5 8.4 - 10.2 MG/DL TOTAL BILIRUBIN 1.3 (H) 0.2 - 1.2 MG/DL ALK PHOS 268 (H) 37 - 98 U/L AST 61 (H) 5 - 35 U/L ALT 29 0 - 55 U/L TOTAL PROTEIN 5.8 (L) 6.0 - 8.3 G/DL ALBUMIN 3.2 (L) 3.4 - 4.9 G/DL ANION GAP 8.0 MMOL/L OSMOLALITY (CALC) 288 MOSM/KG eGFR Non-Afr. Amer. 34 (L) >60 ML/MIN/1.73 M2 eGFR Afr. Amer. 41 (L) >60 ML/MIN/1.73 M2 LACTIC ACID Result Value Ref Range LACTIC ACID 0.8 0.5 - 2.0 MMOL/L MAGNESIUM Result Value Ref Range MAGNESIUM 1.8 1.6 - 2.6 MG/DL PROTIME/INR, VENOUS Result Value Ref Range Protime 14.3 11.6 - 14.3 SEC INR 1.1 0.9 - 1.1 PARTIAL THROMBOPLASTIN TIME,PTT Result Value Ref Range PTT 30.6 22.0 - 35.[address] ABD+PEL WO CON Final Result by User, [email or web address] (06/20 2200) EXAMINATION: CT Chest, Abdomen, and Pelvis with and without contrast CLINICAL HISTORY: Patient notes pain and swelling around scar; surgery 5 years ago. COMPARISON: 09/20/2016 TECHNIQUE: Computed tomography of the chest, abdomen, and pelvis was obtained without contrast. A dose lowering technique was used for this procedure, which may include, but is not limited to, dose reduction technique, automated exposure control, the use of iterative reconstruction, and ALARA (As Low As Reasonably Achievable) / Image Gently techniques. FINDINGS: The visualized lungs are clear. The heart size is enlarged and there is a trace amount of pericardial fluid, both unchanged on the previous study. There are no pericardial effusions. No pleural effusions are present. Pneumobilia is present, however it is stable and consistent with previous hepatic transplantation. The gallbladder is surgically absent. There is no splenomegaly. The kidneys appear normal. The bowel is normal in course and caliber. There is no bowel wall thickening. No mesenteric lymphadenopathy. There has been interval decrease in size of a heterogeneous mass adjacent to the left side of the uterus now measuring 4 x 3.2 cm; likely representing a large subserosal pedunculated fibroid. The bladder is normal in appearance. There is no inguinal lymphadenopathy. There is a heterogeneous appearance just superficial to the scar site. There is asymmetry of the rectus abdominis muscles. The left rectus abdominis contains a fluid collection, likely blood. There is free fluid and stranding within the pelvis, likely related to the rectus sheath hematoma. There are no lytic or blastic osseous lesions. IMPRESSION: 1. Left rectus abdominous sheath hematoma. 2. Free fluid, likely blood in the pelvis secondary to rectus abdominis sheath hematoma or less likely from ruptured fibroid. 3. Interval decrease in size of uterine fibroid adjacent to the left side of the uterus. 4. Stable pneumobilia. The attending radiologist has reviewed the image(s) and agrees with the content of this report. These results were relayed via telephone to the patient's ER physician, Dr. Lezama, at 2140 hours on 06/20/2017. Dictated By: Giovanni Whitehead on 06/20/2017 9:01 PM Interpreted By: Giovanni Whitehead, 06/20/2017 9:01 PM Order Doctor: MEGAN BRENNER ED Course / Medical Decision Making Staffed with Dr. Lezama Rectus sheath hematoma with anemia and thrombocytopenia, admitted to Dr. Costa for serial hemoglobinsand serial abdominal exam. Workup Notes Medications sodium chloride 0.9% bolus infusion SOLN 1,000 mL (0 mLs Intravenous Infusion Stop Time 06/20/172208) fentaNYL (SUBLIMAZE) injection 50 mcg (50 mcg Intravenous Given 06/20/172006) fentaNYL (SUBLIMAZE) injection 50 mcg (50 mcg Intravenous Given 06/20/172112) nalbuphine (NUBAIN) injection 10 mg (10 mg Intravenous Given 06/20/172231) ondansetron (ZOFRAN) injection 4 mg (4 mg Intravenous Given 06/20/172230) Clinical Impression Rectus sheath hematoma (Primary) Abdominal pain Current Discharge Medication List Disposition: Admit Surgical unit, Dr. Costa Follow up: No follow-up provider specified. Cosigned by Pierce Lezama MD at 06/20/2017 11:55 PM CDT Associated attestation - Pierce Lezama MD - 06/20/2017 11:55 PM CDT Teaching Physician - IPIERCE MD, performed a History and Physical examination of thepatient and discussed the management with the resident. I reviewed the Resident's note and agree with the findings and plan of care, except as I have documented. * George Tucker RN - 06/20/2017 4:23 PM CDT PT ARRIVES VIA POV. PT COMPLAINS OF PAIN AND SWELLING AROUND A PAST SCAR. PT STATES SHE HAD ONE 5 YEARS AGO. PT STATES IT STARTED HURTING AFTER WORKING OUT documented in this encounter Plan of Treatment Not on file documented as of this encounter Procedures Procedure Name Priority Date/Time Associated Diagnosis Comments HEMOGLOBIN AND HEMATOCRIT TIMED 06/21/2017 10:48 AM CDT BASIC METABOLIC PANEL Routine 06/21/2017 4:49 AM CDT CBC W/DIFF AUTOMATED Routine 06/21/2017 4:49 AM CDT HEMOGLOBIN AND HEMATOCRIT TIMED 06/21/2017 12:49 AM CDT PARTIAL THROMBOPLASTIN TIME,PTT STAT 06/20/2017 9:53 PM CDT PROTHROMBIN TIME, VENOUS STAT 06/20/2017 9:[address] ABD+PEL WO CON STAT 06/20/2017 8:5 7 PM CDT COMPREHENSIVE METABOLIC PANEL STAT 06/20/2017 8:07 PM CDT LACTIC ACID STAT 06/20/2017 8:07 PM CDT CBC W/DIFF AUTOMATED STAT 06/20/2017 8:07 PM CDT MAGNESIUM STAT 06/20/2017 8:07 PM CDT documented in this encounter Results * (ABNORMAL) HEMOGLOBIN AND HEMATOCRIT (06/21/2017 10:48 AM CDT) HGB 9.1(L) 12.0 - 16.0 G/DL 06/21/2017 10:[address] [facility] HCT 27.1(L) 36.0 - 47.0 % 06/21/2017 10:[address] [facility] 06/21/2017 10:4 8 AM CDT Sekou Grimes MD LABORATORY Final Result [facility] [address] [place] [address], [id number] * (ABNORMAL) CBC W/DIFF AUTOMATED (06/21/2017 4:49 AM CDT) WBC 3.6(L) 4.0 - 10.8 x10'3/uL 06/21/2017 5:[address] [facility] RBC 2.64(L) 4.10 - 5.40 x10'6/uL 06/21/2017 5:[address] [facility] HGB 9.0(L) 12.0 - 16.0 G/DL 06/21/2017 5:[address] [facility] HCT 26.0(L) 36.0 - 47.0 % 06/21/2017 5:[address] [facility] MCV 98.5 78.0 - 100.0 FL 06/21/2017 5:[address] [facility] MCH 34.1(H) 27.0 - 31.0 PG 06/21/2017 5:[address] [facility] MCHC 34.6 33.0 - 36.0 G/DL 06/21/2017 5:[address] [facility] RDW 14.1 11.5 - 14.5 % 06/21/2017 5:[address] [facility] PLT 49(L) 150 - 350 x10'3/uL 06/21/2017 7:[address] [facility] MPV 11.9(H) 7.4 - 10.4 FL 06/21/2017 7:[address] [facility] ABS. NEUTROPHILS TOTAL 2.02 1.60 - 8.30 x10'3/uL 06/21/2017 5:[address] [facility] ABS. LYMPHOCYTES 1.02 0.80 - 4.70 x10'3/uL 06/21/2017 5:[address] [facility] ABS. MONOCYTES 0.31 0.00 - 1.50 x10'3/uL 06/21/2017 5:[address] [facility] ABS. EOSINOPHILS 0.20 0.00 - 0.40 x10'3/uL 06/21/2017 5:[address] [facility] ABS. BASOPHILS 0.01 0.00 - 0.20 x10'3/uL 06/21/2017 5:[address] [facility] ABS. IMMATURE GRANULOCYTES 0.01 0.00 - 0.03 x10'3/uL 06/21/2017 5:[address] [facility] ABS. NUCLEATED RBC'S 0.00 0.0 x10'3/uL 06/21/2017 5:[address] [facility] 06/21/2017 4:49 AM CDT Licha Costa MD LABORATORY Final Result [facility] [address] [place] [address], [id number] * (ABNORMAL) BASIC METABOLIC PANEL (06/21/2017 4:49 AM CDT) SODIUM S/P/B 141 135 - 147 MMOL/L 06/21/2017 5:[address] [facility] POTASSIUM S/P/B 4.3 3.5 - 5.0 MMOL/L 06/21/2017 5:[address] [facility] CHLORIDE S/P/B 116(H) 98 - 107 MMOL/L 06/21/2017 5:[address] [facility] CO2 21.2(L) 22 - 29 MMOL/L 06/21/2017 5:[address] [facility] GLUCOSE 93 70 - 109 MG/DL 06/21/2017 5:[address] [facility] BUN 19 7 - 19 MG/DL 06/21/2017 5:[address] [facility] CREATININE S/P/B 1.59(H) 0.60 - 1.10 MG/DL 06/21/2017 5:[address] [facility] CALCIUM S/P/B 8.0(L) 8.4 - 10.2 MG/DL 06/21/2017 5:[address] [facility] EGFR NON-AFR. AMER. 37(L) >60 ML/MIN/1.7 3 M2 06/21/2017 5:[address] [facility] EGFR AFR. AMER. 45(L) >60 ML/MIN/1.7 3 M2 06/21/2017 5:[address] [facility] ANION GAP 3.8 MMOL/L 06/21/2017 5:[address] [facility] OSMOLALITY (CALC) 283 MOSM/KG 06/21/2017 5:[address] [facility] 06/21/2017 4:49 AM CDT us Licha Costa MD LABORATORY Final Result Performing Organization Address [facility] Co de Phone Number [facility] [address] [place] [address], [id number] * (ABNORMAL) HEMOGLOBIN AND HEMATOCRIT (06/21/2017 12:49 AM CDT) HGB 9.7(L) 12.0 - 16.0 G/DL 06/21/2017 1:[address] [facility] HCT 28.5(L) 36.0 - 47.0 % 06/21/2017 1:[address] [facility] 06/21/2017 12:4 9 AM CDT us Licha Costa MD LABORATORY Final Result Performing Organization Address [facility] Co de Phone Number [facility] [address] [place] [address], [place] [phone] * PARTIAL THROMBOPLASTIN TIME,PTT (06/20/2017 9:53 PM CDT) PTT 30.6 22.0 - 35.0 SEC 06/20/2017 10:[address] [facility] 06/20/2017 9:53 PM CDT Megan Brenner MD LABORATORY Final Result Performing Organization Address City/[facility]/ZIP Co de Phone Number [facility] [address] [place] [address], [id number] * PROTIME/INR, VENOUS (06/20/2017 9:53 PM CDT) PROTIME 14.3 11.6 - 14.3 SEC 06/20/2017 10:[address] [facility] INR 1.1 0.9 - 1.1 06/20/2017 10:[address] [facility] 06/20/2017 9:53 PM CDT Megan Brenner MD LABORATORY Final Result Performing Organization Address [facility] Co de Phone Number [facility] [address] [place] [address], [id number] * CT ABD+PEL WO CON (06/20/2017 8:57 PM CDT) Anatomical Region Laterality Modality Abdomen Computed Tomogra phy 06/20/2017 9:01 PM CDT Impressions 06/20/2017 10:00 PM CDT IMPRESSION: 1. Left rectus abdominous sheath hematoma. 2. Free fluid, likely blood in the pelvis secondary to rectus abdominis sheath hematoma or less likely from ruptured fibroid. 3. Interval decrease in size of uterine fibroid adjacent to the left side of the uterus. 4. Stable pneumobilia. The attending radiologist has reviewed the image(s) and agrees with the content of this report. These results were relayed via telephone to the patient's ER physician, Dr. Lezama, at 2140 hours on 06/20/2017. Dictated By: Giovanni Whitehead on 06/20/2017 9:01 PM Interpreted By: Giovanni Whitehead, 06/20/2017 9:01 PM Order Doctor: MEGAN Shetty 06/20/2017 10:00 PM CDT EXAMINATION: CT Chest, Abdomen, and Pelvis with and without contrast CLINICAL HISTORY: Patient notes pain and swelling around scar; surgery 5 years ago. COMPARISON: 09/20/2016 TECHNIQUE: Computed tomography of the chest, abdomen, and pelvis was obtained without contrast. ?? A dose lowering technique was used for this procedure, which may include, but is not limited to, dose reduction technique, automated exposure control, the use of iterative reconstruction, and ALARA (As Low As Reasonably Achievable) / Image Gently techniques. FINDINGS: The visualized lungs are clear. The heart size is enlarged and there is a trace amount of pericardial fluid, both unchanged on the previous study. There are no pericardial effusions. No pleural effusions are present. Pneumobilia is present, however it is stable and consistent with previous hepatic transplantation. The gallbladder is surgically absent. There is no splenomegaly. The kidneys appear normal. The bowel is normal in course and caliber. There is no bowel wall thickening. No mesenteric lymphadenopathy. There has been interval decrease in size of a heterogeneous mass adjacent to the left side of the uterus now measuring 4 x 3.2 cm; likely representing a large subserosal pedunculated fibroid. The bladder is normal in appearance. There is no inguinal lymphadenopathy. There is a heterogeneous appearance just superficial to the scar site. There is asymmetry of the rectus abdominis muscles. The left rectus abdominis contains a fluid collection, likely blood. There is free fluid and stranding within the pelvis, likely related to the rectus sheath hematoma. There are no lytic or blastic osseous lesions. Procedure Note Shorty Ardon MD - 06/20/2017 EXAMINATION: CT Chest, Abdomen, and Pelvis with and without contrast CLINICAL HISTORY: Patient notes pain and swelling around scar; surgery 5 years ago. COMPARISON: 09/20/2016 TECHNIQUE: Computed tomography of the chest, abdomen, and pelvis was obtained without contrast. A dose lowering technique was used for this procedure, which mayinclude, but is not limited to, dose reduction technique, automated exposure control, the use of iterative reconstruction, and ALARA (As Low As Reasonably Achievable) / Image Gently techniques. FINDINGS: The visualized lungs are clear. The heart size is enlarged and there is a trace amount of pericardial fluid, both unchanged on the previous study. There are no pericardial effusions. No pleural effusions are present. Pneumobilia is present, however it is stable and consistent with previous hepatic transplantation. The gallbladder is surgically absent. There is no splenomegaly. The kidneys appear normal. The bowelis normal in course and caliber. There is no bowel wall thickening. No mesenteric lymphadenopathy. There has been interval decrease in size ofa heterogeneous mass adjacent to the left side of the uterus now measuring4 x 3.2 cm; likely representing a large subserosal pedunculated fibroid.The bladder is normal in appearance. There is no inguinal lymphadenopathy. There is a heterogeneous appearance just superficial to the C-sectionscar site. There is asymmetry of the rectus abdominis muscles. The leftrectus abdominis contains a fluid collection, likely blood. There is free fluid and stranding within the pelvis, likely related to the rectus sheath hematoma. There are no lytic or blastic osseous lesions. IMPRESSION: 1. Left rectus abdominous sheath hematoma. 2. Free fluid, likely blood in the pelvis secondary to rectus abdominis sheath hematoma or less likely from ruptured fibroid. 3. Interval decrease in size of uterine fibroid adjacent to the leftside of the uterus. 4. Stable pneumobilia. The attending radiologist has reviewed the image(s) and agrees with the content of this report. These results were relayed via telephone to the patient's ER physician,Dr. Lezama, at 2140 hours on 06/20/2017. Dictated By: Giovanni Whitehead on 06/20/2017 9:01 PM Interpreted By: Giovanni Whitehead, 06/20/2017 9:01 PM Order Doctor: MEGAN BRENNER Megan Brenner MD CT Final Result * MAGNESIUM (06/20/2017 8:07 PM CDT) MAGNESIUM 1.8 1.6 - 2.6 MG/DL 06/20/2017 9:[address] [facility] 06/20/2017 8:07 PM CDT us Megan Brenner MD LABORATORY Final Result [facility] [address] [place] [address], [place] [phone] * LACTIC ACID (06/20/2017 8:07 PM CDT) [facility] LACTIC ACID VENOUS 0.8 0.5 - 2.0 MMOL/L 06/20/2017 9:[address] [facility] 06/20/2017 8:07 PM CDT Megan Brenner MD LABORATORY Final Result [facility] [address] [place] [address], [id number] * (ABNORMAL) COMPREHENSIVE METABOLIC PANEL (06/20/2017 8:07 PM CDT) [facility] SODIUM S/P/B 143 135 - 147 MMOL/L 06/20/2017 9:[address] [facility] POTASSIUM S/P/B 4.0 3.5 - 5.0 MMOL/L 06/20/2017 9:[address] [facility] CHLORIDE S/P/B 114(H) 98 - 107 MMOL/L 06/20/2017 9:[address] [facility] CO2 21.0(L) 22 - 29 MMOL/L 06/20/2017 9:[address] [facility] GLUCOSE 93 70 - 109 MG/DL 06/20/2017 9:[address] [facility] BUN 21(H) 7 - 19 MG/DL 06/20/2017 9:[address] [facility] CREATININE S/P/B 1.72(H) 0.60 - 1.10 MG/DL 06/20/2017 9:[address] [facility] CALCIUM S/P/B 8.5 8.4 - 10.2 MG/DL 06/20/2017 9:[address] [facility] BILIRUBIN TOTAL S/P/B 1.3(H) 0.2 - 1.2 MG/DL 06/20/2017 9:[address] [facility] ALKALINE PHOSPHATASE S/P/B 268(H) 37 - 98 U/L 06/20/2017 9:[address] [facility] AST 61(H) 5 - 35 U/L 06/20/2017 9:[address] [facility] ALT 29 0 - 55 U/L 06/20/2017 9:[address] [facility] TOTAL PROTEIN S/P/B 5.8(L) 6.0 - 8.3 G/DL 06/20/2017 9:[address] [facility] ALBUMIN S/P/B 3.2(L) 3.4 - 4.9 G/DL 06/20/2017 9:[address] [facility] ANION GAP 8.0 MMOL/L 06/20/2017 9:[address] [facility] OSMOLALITY (CALC) 288 MOSM/KG 06/20/2017 9:[address] [facility] EGFR NON-AFR. AMER. 34(L) >60 ML/MIN/1.7 3 M2 06/20/2017 9:[address] [facility] EGFR AFR. AMER. 41(L) >60 ML/MIN/1.7 3 M2 06/20/2017 9:[address] [facility] 06/20/2017 8:07 PM CDT us Megan Brenner MD LABORATORY Final Result [facility] [address] [place] [address], [id number] * (ABNORMAL) CBC W/DIFF AUTOMATED (06/20/2017 8:07 PM CDT) WBC 4.5 4.0 - 10.8 x10'3/uL 06/20/2017 8:[address] [facility] RBC 2.93(L) 4.10 - 5.40 x10'6/uL 06/20/2017 8:[address] [facility] HGB 9.8(L) 12.0 - 16.0 G/DL 06/20/2017 8:[address] [facility] HCT 28.8(L) 36.0 - 47.0 % 06/20/2017 8:[address] [facility] MCV 98.3 78.0 - 100.0 FL 06/20/2017 8:[address] [facility] MCH 33.4(H) 27.0 - 31.0 PG 06/20/2017 8:[address] [facility] MCHC 34.0 33.0 - 36.0 G/DL 06/20/2017 8:[address] [facility] RDW 13.9 11.5 - 14.5 % 06/20/2017 8:[address] [facility] PLT 61(L) 150 - 350 x10'3/uL 06/20/2017 8:[address] [facility] MPV 11.4(H) 7.4 - 10.4 FL 06/20/2017 8:[address] [facility] ABS. NEUTROPHILS TOTAL 3.07 1.60 - 8.30 x10'3/uL 06/20/2017 8:[address] [facility] ABS. LYMPHOCYTES 0.91 0.80 - 4.70 x10'3/uL 06/20/2017 8:[address] [facility] ABS. MONOCYTES 0.33 0.00 - 1.50 x10'3/uL 06/20/2017 8:[address] [facility] ABS. EOSINOPHILS 0.12 0.00 - 0.40 x10'3/uL 06/20/2017 8:[address] [facility] ABS. BASOPHILS 0.01 0.00 - 0.20 x10'3/uL 06/20/2017 8:[address] [facility] ABS. IMMATURE GRANULOCYTES 0.02 0.00 - 0.03 x10'3/uL 06/20/2017 8:[address] [facility] ABS. NUCLEATED RBC'S 0.00 0.0 x10'3/uL 06/20/2017 8:[address] [facility] 06/20/2017 8:07 PM CDT us Megan Brenner MD LABORATORY Final Result [facility] [address] [place] [address], [id number] documented in this encounter Visit Diagnoses Diagnosis Rectus sheath hematoma, initial encounter- Primary Rectus sheath hematoma Contusion of abdominal wall Abdominal pain Abdominal pain, unspecified site documented in this encounter Administered Medications Inactive Administered Medications - up to 3 most recent administrations Medication Order MAR Action Action Date Dose Rate Site acetaminophen (TYLENOL) tablet 650 mg 650 mg, Oral, Every 4 hours PRN, Mild pain (Scale 1 - 3), Fever, Starting on Mon06/21/17 at 0022, Until Mon06/21/17 at 2011, Maximum dose of acetaminophen is 4000 mg from all sources in 24 hours. Given 06/21/2017 11:09 AM CDT 650 mg dextrose 5 %-sodium chloride 0.45 % infusion at 100 mL/hr, Intravenous, Continuous, Starting on Mon06/21/17 at 0045, Until Mon06/21/17 at 0825 New Bag 06/21/2017 12:59 AM CDT 100 mL/hr fentaNYL (SUBLIMAZE) injection 50 mcg 50 mcg, Intravenous, Once, 1 dose, On Mon06/20/17 at 2015, If intravenous (IV) route has been ordered, give over 1-2 minutes. Given 06/20/2017 8:07 PM CDT 50 mcg fentaNYL (SUBLIMAZE) injection 50 mcg 50 mcg, Intravenous, Once, 1 dose, On Mon06/20/17 at 2130, If intravenous (IV) route has been ordered, give over 1-2 minutes. Given 06/20/2017 9:13 PM CDT 50 mcg hydrocodone-acetaminophen (NORCO) 10-325 MG tablet 1 tablet 1 tablet, Oral, Every 6 hours PRN, Moderate pain (Scale 4 - 7), Starting on Mon06/21/17 at 0756, Until Mon06/21/17 at 2010, Maximum dose of acetaminophen is 4000 mg from all sources in 24 hours. Given 06/21/2017 3:32 PM CDT 1 tablet Given 06/21/2017 8:46 AM CDT 1 tablet HYDROmorphone (DILAUDID) tablet 2 mg 2 mg, Oral, Every 3 hours PRN, Moderate pain (Scale 4 - 7), Starting on Mon06/20/17 at 2358, Until Mon06/21/17 at 0021 Given 06/21/2017 12:56 AM CDT 2 mg HYDROmorphone (DILAUDID) tablet 2 mg 2 mg, Oral, Every 4 hours PRN, Moderate pain (Scale 4 - 7), Severe pain (Scale 8 - 10), Starting on Mon06/21/17 at 0327, Until Mon06/21/17 at 0756 Given 06/21/2017 3:37 AM CDT 2 mg morphine injection 2 mg 2 mg, Intravenous, Every 4 hours PRN, Severe pain (Scale 8 - 10), Starting on Mon06/21/17 at 0756, Until Mon06/21/17 at 2011 Given 06/21/2017 9:01 AM CDT 2 mg nalbuphine (NUBAIN) injection 10 mg 10 mg, Intravenous, Once, 1 dose, On Mon06/20/17 at 2245 Given 06/20/2017 10:32 PM CDT 10 mg nalbuphine (NUBAIN) injection 10 mg 10 mg, Intravenous, Every 4 hours PRN, Severe pain (Scale 8 - 10), Starting on Mon06/21/17 at 0050, Until Mon06/21/17 at 0756 Given 06/21/2017 2:52 AM CDT 10 mg ondansetron (ZOFRAN) injection 4 mg 4 mg, Intravenous, Once, 1 dose, On Mon06/20/17 at 2245, IV push over 2-5 minutes. Given 06/20/2017 10:31 PM CDT 4 mg ondansetron (ZOFRAN) injection 4 mg 4 mg, Intravenous, Every 6 hours PRN, Nausea, Vomiting, Starting on Mon06/21/17 at 0022, Until Mon06/21/17 at 2010 Given 06/21/2017 3:32 PM CDT 4 mg Given 06/21/2017 9:01 AM CDT 4 mg sodium bicarbonate tablet 1,300 mg 1,300 mg, Oral, 3 times daily, First dose on Mon06/21/17 at 0900, Until Discontinued Given 06/21/2017 3:32 PM CDT 1,300 mg Given 06/21/2017 8:44 AM CDT 1,300 mg sodium chloride 0.9% bolus infusion SOLN 1,000 mL 1,000 mL, Intravenous, Administer over 15 Minutes, Once, 1 dose, On Mon06/20/17 at 2014 New Bag 06/20/2017 8:08 PM CDT 1,000 mLs tacrolimus (PROGRAF) capsule 2 mg 2 mg, Oral, 2 times daily, First dose on Mon06/21/17 at 0045, Until Discontinued, HAZARDOUS MEDICATION Given 06/21/2017 8:44 AM CDT 2 mg Given 06/21/2017 1:00 AM CDT 2 mg zolpidem (AMBIEN) tablet 5 mg 5 mg, Oral, Nightly PRN, Sleep, Starting on Mon06/21/17 at 0045, Until Mon06/21/17 at 2010 Given 06/21/2017 3:37 AM CDT 5 m g documented in this encounter Active and Recently Administered Medications Times are shown in CDT. Scheduled Medication Order 06/19/2017 06/20/2017 06/21/2017 fentaNYL (SUBLIMAZE) injection 50 mcg (COMPLETED) 50 mcg, Intravenous, Once, 1 dose, On Mon06/20/17 at 2014, If intravenous (IV) route has been ordered, give over 1-2 minutes. 2006 (Given - Provider: Tamara Beal RN) fentaNYL (SUBLIMAZE) injection 50 mcg (COMPLETED) 50 mcg, Intravenous, Once, 1 dose, On Mon06/20/17 at 2129, If intravenous (IV) route has been ordered, give over 1-2 minutes. 2112 (Given - Provider: Tamara Beal RN) nalbuphine (NUBAIN) injection 10 mg (COMPLETED) 10 mg, Intravenous, Once, 1 dose, On Mon06/20/17 at 2245 2232 (Given - Provider: Tamara Beal RN) ondansetron (ZOFRAN) injection 4 mg (COMPLETED) 4 mg, Intravenous, Once, 1 dose, On Mon06/20/17 at 2245, IV push over 2-5 minutes. 2231 (Given - Provider: Tamara Beal, ANSON) sodium bicarbonate tablet 1,300 mg 1,300 mg, Oral, 3 times daily, First dose on Mon06/21/17 at 0900, Until Discontinued 0844 (Given - Provid er: Soheila White RN)1532 (Given - Provider: Soheila White RN) sodium chloride 0.9% bolus infusion SOLN 1,000 mL (COMPLETED) 1,000 mL, Intravenous, Administer over 15 Minutes, Once, 1 dose, On Mon06/20/17 at 2015 2008 (New Bag - Provider: Tamara Beal RN)2209 (Infusion Stop Time - Provider: Tamara Beal RN) tacrolimus (PROGRAF) capsule 2 mg 2 mg, Oral, 2 times daily, First dose on Mon06/21/17 at 0045, Until Discontinued, HAZARDOUS MEDICATION 0100 (Given - Provid er: Dick Thorne RN)0844 (Given - Provider: Soheila White RN) Continuous Medication Order 06/19/2017 06/20/2017 06/21/2017 dextrose 5 %-sodium chloride 0.45 % infusion (CANCELED) at 100 mL/hr, Intravenous, Continuous, Starting on Mon06/21/17 at 0045, Until Mon06/21/17 at 0825 0059 (New Bag - Prov ider: Dick Thorne RN) PRN Medication Order 06/19/2017 06/20/2017 06/21/2017 acetaminophen (TYLENOL) tablet 650 mg 650 mg, Oral, Every 4 hours PRN, Mild pain (Scale 1 - 3), Fever, Starting on Mon06/21/17 at 0022, Until Mon06/21/17 at 2011, Maximum dose of acetaminophen is 4000 mg from all sources in 24 hours. 1109 (Given - Provid er: Soheila White RN) hydrocodone-acetaminophen (NORCO) 10-325 MG tablet 1 tablet 1 tablet, Oral, Every 6 hours PRN, Moderate pain (Scale 4 - 7), Starting on Mon06/21/17 at 0756, Until Mon06/21/17 at 2010, Maximum dose of acetaminophen is 4000 mg from all sources in 24 hours. 0846 (Given - Provid er: Soheila White RN)1532 (Given - Provider: Soheila White RN) HYDROmorphone (DILAUDID) tablet 2 mg (CANCELED) 2 mg, Oral, Every 3 hours PRN, Moderate pain (Scale 4 - 7), Starting on Mon06/20/17 at 2358, Until Mon06/21/17 at 0021 0056 (Given - Provid er: Dick Thorne RN - Comment: MED NOT GIVEN YET. ORDER NOT D/C'D PER DR COSTA) HYDROmorphone (DILAUDID) tablet 2 mg (CANCELED) 2 mg, Oral, Every 4 hours PRN, Moderate pain (Scale 4 - 7), Severe pain (Scale 8 - 10), Starting on Mon06/21/17 at 0327, Until Mon06/21/17 at 0756 0337 (Given - Provid er: Dick Thorne RN) morphine injection 2 mg 2 mg, Intravenous, Every 4 hours PRN, Severe pain (Scale 8 - 10), Starting on Mon06/21/17 at 0756, Until Mon06/21/17 at 2010 09 (Given - Provid er: Soheila White RN) nalbuphine (NUBAIN) injection 10 mg (CANCELED) 10 mg, Intravenous, Every 4 hours PRN, Severe pain (Scale 8 - 10), Starting on Mon06/21/17 at 0050, Until Mon06/21/17 at 0756 0252 (Given - Provid er: Dick Thorne RN) ondansetron (ZOFRAN) injection 4 mg 4 mg, Intravenous, Every 6 hours PRN, Nausea, Vomiting, Starting on Mon06/21/17 at 0022, Until Mon06/21/17 at 2010 09 (Given - Provid er: Soheila White RN)1532 (Given - Provider: Soheila White RN) zolpidem (AMBIEN) tablet 5 mg 5 mg, Oral, Nightly PRN, Sleep, Starting on Mon06/21/17 at 0045, Until Mon06/21/17 at 2010 0337 (Given - Provid er: Dcik Thorne RN) documented in this encounter Care Teams Architecture Instructor Relationship Specialty Start Date End Date Sherry Ramirez III, MD [address] [facility] [address] [place] [address] PCP - General FAMILY PRACTICE 06/20/17 documented as of this encounter
--- OUTSIDE RECORDS SUMMARY | 2024-03-20 11:57 | XMS_ITS | Encounter Summary ---
Author Organization [facility] Address [address] [place] [address]. [place] [address] [place] [address] Care Team Providers Care Racebook Writer Name Role Phone Ashley ZUNIGA MD, Hermes Perez Primary Care Provid er Encounter Details Date Type Department Care Team (Late st Contact Info) Description 06/03/2017 Abstract [facility] [address] [place], [place] [id number] , Generic MD Anisa Social History Tobacco Use Types Packs/Day Years Used Date Smoking Tobacco: Never Assessed Comments Unknown Sex and Gender Information Value Date Recorded Sex Assigned at Not on file Legal Sex Female 9:15 PM PRIMARY PRODUCTS INSPECTORS Gender Identity Not on file Sexual Orientation Not on file documented as of this encounter Plan of Treatment Not on file documented as of this encounter Visit Diagnoses Not on filedocumented in this encounter Additional Health Concerns Infection Onset Date Last Indicated Resolved Time COVID-19 Rule Out 03/30/2020 03/30/2020 03/30/2020 9:29 PM PRIMARY PRODUCTS INSPECTORS COVID-19 Rule Out 03/30/2020 03/30/2020 03/31/2020 12:28 PM PRIMARY PRODUCTS INSPECTORS COVID-19 Rule Out 02/16/2024 02/16/2024 02/16/2024 9:16 PM PRIMARY PRODUCTS INSPECTORS Rhinovirus 02/16/2024 02/16/2024 02/26/2024 12:3 2 AM PRIMARY PRODUCTS INSPECTORS documented as of this encounter Care Teams Racebook Writer Relationship Specialty Start Date End Date Hermes Ramirez III, MD [address] [place] [address] PCP - General FAMILY PRACTICE 06/20/17 documented as of this encounter
--- OUTSIDE RECORDS SUMMARY | 2024-03-20 11:57 | XMS_ITS | Encounter Summary ---
Author Organization [facility] Address [address] [place] [address]. [place], [place] [id number] [place] [address] Care Team Providers Care Return Checker Name Role Phone Ashley ZUNIGA MD, Hermes Perez Primary Care Provid er Encounter Details Date Type Department Care Team (Latest Contact Info) Description 03/06/2017 Abstract [facility] Lazara Case MD Social History Tobacco Use Types Packs/Day Years Used Date Smoking Tobacco: Never Assessed Comments Unknown Sex and Gender Information Value Date Recorded Sex Assigned at Not on file Legal Sex Female 9:15 PM CASING SEWER Gender Identity Not on file Sexual Orientation Not on file documented as of this encounter Last Filed Vital Signs Vital Sign Reading Time Taken Comments Blood Pressure 120/80 03/06/2017 2:00 PM CASING SEWER Pulse 76 03/06/2017 2:00 PM CASING SEWER Temperature - - Respiratory Rate - - Oxygen Saturation - - Inhaled Oxygen Concentration - - Weight 68 kg (150 lb) 03/06/2017 2:00 PM CASING SEWER Height 157.5 cm (5' 2 ) 03/06/2017 2:00 PM CASING SEWER Body Mass Index 27.44 03/06/2017 2:00 PM CASING SEWER documented in this encounter Plan of Treatment Not on file documented as of this encounter Visit Diagnoses Not on filedocumented in this encounter Care Teams Return Checker Relationship Specialty Start Date End Date Hermes Ramirez III, MD [address] [facility] [address] [place] [address] PCP - General FAMILY PRACTICE 06/20/17 documented as of this encounter
--- OUTSIDE RECORDS SUMMARY | 2024-03-20 11:57 | XMS_ITS | Encounter Summary ---
Author Organization [facility] [place] [facility] Address [address] [place] [address]. [place], [place] [id number] [place] [address] Care Team Providers Care Incinerator Plant Supervisor Name Role Phone Ashley ZUNIGA MD, Hermes Perez Primary Care Provid er Encounter Details Date Type Department Care Team (Latest Contact Info) Description 02/28/2017 Abstract [facility] Social History Tobacco Use Types Packs/Day Years Used Date Smoking Tobacco: Never Assessed Comments Unknown Sex and Gender Information Value Date Recorded Sex Assigned at Not on file Legal Sex Female 9:15 PM SUPERVISOR DENTURE DEPARTMENT Gender Identity Not on file Sexual Orientation Not on file documented as of this encounter Plan of Treatment Not on file documented as of this encounter Visit Diagnoses Not on filedocumented in this encounter Care Teams Incinerator Plant Supervisor Relationship Specialty Start Date End Date Hermes Ramirez III, MD [address] [facility] [address] [place] [address] PCP - General FAMILY PRACTICE 06/20/17 documented as of this encounter
--- OUTSIDE RECORDS SUMMARY | 2024-03-20 11:57 | XMS_ITS | Encounter Summary ---
Author Organization [facility] Address [address] [place] [address]. [place], [place] [address] [place] [address] Care Team Providers Care Dragsaw Operator Name Role Phone Ashley ZUNIGA MD, Hermes Perez Primary Care Provid er Encounter Details Date Type Department Care Team (Latest Contact Info) Description 06/07/2017 Abstract [facility] , Lazara Lange MD Social History Tobacco Use Types Packs/Day Years Used Date Smoking Tobacco: Never Assessed Comments Unknown Sex and Gender Information Value Date Recorded Sex Assigned at Not on file Legal Sex Female 9:15 PM CORPORATE COUNSEL Gender Identity Not on file Sexual Orientation Not on file documented as of this encounter Last Filed Vital Signs Vital Sign Reading Time Taken Comments Blood Pressure 122/76 06/07/2017 3:55 PM CDT Pulse 78 06/07/2017 3:55 PM CDT Temperature - - Respiratory Rate - - Oxygen Saturation - - Inhaled Oxygen Concentration - - Weight 68 kg (150 lb) 06/07/2017 3:55 PM CDT Height 157.5 cm (5' 2 ) 06/07/2017 3:55 PM CDT Body Mass Index 27.44 06/07/2017 3:55 PM CDT documented in this encounter Progress Notes * Ar Laws MD - 06/07/2017 12:00 AM CDT HISTORY OF PRESENT ILLNESS Elsa Browne is a 36 year old female. This patient comes for colposcopy. ? Medication list reviewed. SOCIAL HISTORY Behavioral: Smoking status: Current everyday smoker. PHYSICAL FINDINGS ? Vitals taken 06/07/2017 03:55 pm BP-Sitting 122/76 mmHg Pulse Rate-Sitting 78 bpm Height 62 in Weight 150 lbs Body Mass Index 27.4 kg/m2 Body Surface Area 1.69 m2 ASSESSMENT ? Abnormal Pap smear of cervix ASCUS +HPV THERAPY ? Colposcopy of cervix The patient was placed in the dorsal lithotomy position and a vaginal speculum was inserted. Acetic acid (5%) was applied to the cervix. Biopsies were not performed. An ECC wasnot done. Monsol's solution was applied as needed to the cervix via a long swab. EBL = None. Complications: none. No specimen(s) send to pathology: Patient was given the Colposcopy post-procedure instruction sheet. Follow-up visit will be in 6 month to repeat PAP and HPV and every 6 months thereafter. ? Clinical summary provided to patient. COUNSELING/EDUCATION INFORMED CONSENT DISCUSSION: Colposcopy was discussed in detail including risk of post procedure bleeding. Patient is not to have intercourse for 5 days following the procedure. Patient expressed understanding of the above and consented to the procedure. NOTES Patient also complaints of severe pelvic on-off pain for 2-3 days each month for the last 8 months.She has had gone to E/R several times for pain management due to this and came requesting a surgeryto find out the reason or cause of this pain. Patient was oriented about her rincreased risk of visceral laceration/perforation as well as bleeding due to her multiple open surgeries (including livertransplant) and the possibility of her pain been related to this adhesions in view that a normal pelvic anatomy was found on last ultrasound although the possibility of endometriosis can not be ruledout. All the risks were explained and encourage to outweight them againts the benefits we are going to obtain. Plan: Morphine 15 mg 1 tab PO q 6 hrs, PRN x 10 (given) Colposcopy done w/o biopsies due to NO acetowhite lesions identified and practically an inexisting cervix due to previous LEEPs x 2-3 Note: Human Resources Recruiter-Onc refused to do her surgery to avoid creating more scarring tissue. F/U for final disposition (possible Dx Laparoscopy)??? Ar Laws MD Electronically signed by: Ar Laws Date: 06/07/2017 17:08 documented in this encounter Plan of Treatment Not on file documented as of this encounter Visit Diagnoses Not on filedocumented in this encounter Care Teams Dragsaw Operator Relationship Specialty Start Date End Date Hermes Ramirez III, MD [address] [address] PCP - General FAMILY PRACTICE 06/20/17 documented as of this encounter
--- OUTSIDE RECORDS SUMMARY | 2024-03-20 11:57 | XMS_ITS | Encounter Summary ---
Author Organization [facility] Address [address] [place] [address]. [place], [place] [address] [place] [address] Care Team Providers Care Outside Parts Sales Name Role Phone Ashley ZUNIGA MD, Hermes Perez Primary Care Provid er Encounter Details Date Type Department Care Team (Latest Contact Info) Description 05/31/2017 Abstract [facility] Social History Tobacco Use Types Packs/Day Years Used Date Smoking Tobacco: Never Assessed Comments Unknown Sex and Gender Information Value Date Recorded Sex Assigned at Not on file Legal Sex Female 9:15 PM POSTAL SERVICE MAIL PROCESSOR Gender Identity Not on file Sexual Orientation Not on file documented as of this encounter Plan of Treatment Not on file documented as of this encounter Visit Diagnoses Not on filedocumented in this encounter Care Teams Outside Parts Sales Relationship Specialty Start Date End Date Hermes Ramirez III, MD [address] [facility] [address] [place] [address] PCP - General FAMILY PRACTICE 06/20/17 documented as of this encounter
--- OUTSIDE RECORDS SUMMARY | 2024-03-20 11:57 | XMS_ITS | Encounter Summary ---
Author Organization [facility] Address [address] [place] [address]. [place], [place] [id number] [place] [address] Care Team Providers Care Sewer Inspector Name Role Phone Ashley ZUNIGA MD, Hermes Perez Primary Care Provid er Reason for Visit * Reason Comments Abdominal Pain Headache Encounter Details Date Type Department Care Team (Late st Contact Info) Description 07/19/2017 4:13 PM CDT - 07/19/2017 4:20 PM CDT Emergency [facility] Emergency [address] [place] [address] Abdominal Pain; Headache Discharge Disposition: Left Against Medical Advice Social History Tobacco Use Types Packs/Day Years Used Date Smoking Tobacco: Every Day Cigarettes 0.5 15 Alcohol Use Standard Drinks/Week Comments No 0 (1 standard drink = 0.6 oz pur e alcohol) Comments No Sex and Gender Information Value Date Recorded Sex Assigned at Not on file Legal Sex Female 9:15 PM FAMILY RESOURCE SPECIALIST Gender Identity Not on file Sexual Orientation Not on file documented as of this encounter Last Filed Vital Signs Vital Sign Reading Time Taken Comments Blood Pressure 135/82 07/19/2017 1:09 PM CDT Pulse 94 07/19/2017 1:09 PM CDT Temperature 36.9 ??C (98.4 ??F) 07/19/2017 1:09 PM CD T Respiratory Rate 18 07/19/2017 1:09 PM CDT Oxygen Saturation 100% 07/19/2017 1:09 PM CDT Inhaled Oxygen Concentration - - Weight 73.1 kg (161 lb 2.5 oz) 07/19/2017 1:09 P M CDT Height 157.5 cm (5' 2 ) 07/19/2017 1:09 PM CDT Body Mass Index 29.48 07/19/2017 1:09 PM CDT documented in this encounter Medications [...] as of this encounter ED Notes * Marge Hernandez RN - 07/19/2017 1:06 PM CDT Patient arrived amb to triage. Pt c/o right sided abdominal pain and migraine. Patient states hx migraines. documented in this encounter Plan of Treatment Not on file documented as of this encounter Procedures Procedure Name Priority Date/Time Associated Diagnosis Comments COMPREHENSIVE METABOLIC PANEL STAT 07/19/2017 3:15 PM CDT CBC W/DIFF AUTOMATED STAT 07/19/2017 3:15 PM CDT LIPASE STAT 07/19/2017 3:15 PM CDT documented in this encounter Results * LIPASE (07/19/2017 3:15 PM CDT) LIPASE 11 8 - 78 UNITS/L 07/19/2017 3:46 PM CDT [facility] 07/19/2017 3:15 PM CDT [facility] Final Result [facility] [address] [place] [address], [id number] * (ABNORMAL) COMPREHENSIVE METABOLIC PANEL (07/19/2017 3:15 PM CDT) SODIUM S/P/B 141 135 - 147 MMOL/L 07/19/2017 3:[address] [facility] POTASSIUM S/P/B 4.2 3.5 - 5.0 MMOL/L 07/19/2017 3:[address] [facility] Comment:SLIGHT HEMOLYSIS, RE SULT MAY BE AFFECTED. CHLORIDE S/P/B 112(H) 98 - 107 MMOL/L 07/19/2017 3:[address] [facility] CO2 20.0(L) 22 - 29 MMOL/L 07/19/2017 3:[address] [facility] GLUCOSE 97 70 - 109 MG/DL 07/19/2017 3:[address] [facility] BUN 22(H) 7 - 19 MG/DL 07/19/2017 3:[address] [facility] CREATININE S/P/B 1.83(H) 0.60 - 1.10 MG/DL 07/19/2017 3:[address] [facility] CALCIUM S/P/B 8.9 8.4 - 10.2 MG/DL 07/19/2017 3:[address] [facility] BILIRUBIN TOTAL S/P/B 1.1 0.2 - 1.2 MG/DL 07/19/2017 3:[address] [facility] ALKALINE PHOSPHATASE S/P/B 283(H) 37 - 98 U/L 07/19/2017 3:[address] [facility] AST 38(H) 5 - 35 U/L 07/19/2017 3:[address] [facility] ALT 19 0 - 55 U/L 07/19/2017 3:[address] [facility] TOTAL PROTEIN S/P/B 6.5 6.0 - 8.3 G/DL 07/19/2017 3:[address] [facility] ALBUMIN S/P/B 3.6 3.4 - 4.9 G/DL 07/19/2017 3:[address] [facility] ANION GAP 9.0 MMOL/L 07/19/2017 3:[address] [facility] OSMOLALITY (CALC) 285 MOSM/KG 07/19/2017 3:[address] [facility] EGFR NON-AFR. AMER. 32(L) >60 ML/MIN/1.7 3 M2 07/19/2017 3:[address] [facility] EGFR AFR. AMER. 38(L) >60 ML/MIN/1.7 3 M2 07/19/2017 3:[address] [facility] 07/19/2017 3:15 PM CDT Letha Mitchell [facility] Final Result [facility] [address] [place] [address], [id number] * (ABNORMAL) CBC W/DIFF AUTOMATED (07/19/2017 3:15 PM CDT) WBC 4.5 4.0 - 10.8 x10'3/uL 07/19/2017 3:[address] [facility] RBC 3.29(L) 4.10 - 5.40 x10'6/uL 07/19/2017 3:[address] [facility] HGB 11.3(L) 12.0 - 16.0 G/DL 07/19/2017 3:[address] [facility] HCT 32.2(L) 36.0 - 47.0 % 07/19/2017 3:[address] [facility] MCV 97.9 78.0 - 100.0 FL 07/19/2017 3:[address] [facility] MCH 34.3(H) 27.0 - 31.0 PG 07/19/2017 3:[address] [facility] MCHC 35.1 33.0 - 36.0 G/DL 07/19/2017 3:[address] [facility] RDW 13.2 11.5 - 14.5 % 07/19/2017 3:[address] [facility] PLT 53(L) 150 - 350 x10'3/uL 07/19/2017 3:[address] [facility] MPV 12.3(H) 7.4 - 10.4 FL 07/19/2017 3:[address] [facility] ABS. NEUTROPHILS TOTAL 2.90 1.60 - 8.30 x10'3/uL 07/19/2017 3:[address] [facility] ABS. LYMPHOCYTES 0.97 0.80 - 4.70 x10'3/uL 07/19/2017 3:[address] [facility] ABS. MONOCYTES 0.32 0.00 - 1.50 x10'3/uL 07/19/2017 3:[address] [facility] ABS. EOSINOPHILS 0.29 0.00 - 0.40 x10'3/uL 07/19/2017 3:[address] [facility] ABS. BASOPHILS 0.01 0.00 - 0.20 x10'3/uL 07/19/2017 3:[address] [facility] ABS. IMMATURE GRANULOCYTES 0.03 0.00 - 0.03 x10'3/uL 07/19/2017 3:[address] [facility] ABS. NUCLEATED RBC'S 0.00 0.0 x10'3/uL 07/19/2017 3:[address] [facility] 07/19/2017 3:15 PM CDT Letha Mitchell SUPERVISOR ASBESTOS REMOVAL [facility] Final Result [facility] [address] [place] [address], [id number] documented in this encounter Visit Diagnoses Not on filedocumented in this encounter Care Teams Sewer Inspector Relationship Specialty Start Date End Date Hermes Ramirez III, MD [address] [address] PCP - General FAMILY PRACTICE 06/20/17 documented as of this encounter
--- OUTSIDE RECORDS SUMMARY | 2024-03-20 11:57 | XMS_ITS | Encounter Summary ---
Author Organization [facility] Address [address] [place] [address]. [place], [place] [address] [place] [address] Care Team Providers Care Real Estate Officer Name Role Phone Ashley ZUNIGA MD, Hermes Perez Primary Care Provid er Encounter Details Date Type Department Care Team (Latest Contact Info) Description 03/27/2017 Abstract [facility] , Lazara Lange MD Social History Tobacco Use Types Packs/Day Years Used Date Smoking Tobacco: Never Assessed Comments Unknown Sex and Gender Information Value Date Recorded Sex Assigned at Not on file Legal Sex Female 9:15 PM FURRIER DESIGNER Gender Identity Not on file Sexual Orientation Not on file documented as of this encounter Plan of Treatment Not on file documented as of this encounter Visit Diagnoses Not on filedocumented in this encounter Care Teams Real Estate Officer Relationship Specialty Start Date End Date Hermes Ramirez III, MD [address] [facility] [address] [place] [address] PCP - General FAMILY PRACTICE 06/20/17 documented as of this encounter
--- OUTSIDE RECORDS SUMMARY | 2024-03-20 11:57 | XMS_ITS | Encounter Summary ---
Author Organization [facility] Address [address] [place] [address]. [place] [address] [place] [address] Care Team Providers Care Mainframe Programmer Name Role Phone Unavailable Primary Care Provider Unavailabl e Encounter Details Date Type Department Care Team (Late st Contact Info) Description 04/12/2017 Emergency [place] [facility] [address] [facility] [place] [address] [place] [address] Jf Khan MD Social History Tobacco Use Types Packs/Day Years Used Date Smoking Tobacco: Never Assessed Comments Unknown Sex and Gender Information Value Date Recorded Sex Assigned at Not on file Legal Sex Female 9:15 PM TRIALS MANAGER Gender Identity Not on file Sexual Orientation Not on file documented as of this encounter Plan of Treatment Not on file documented as of this encounter Procedures Procedure Name Priority Date/Time Associated Diagnosis Comments URINALYSIS COMPLETE W/RFX TO CULTURE STAT 04/12/2017 7:20 PM TRIALS MANAGER DRUG SCREEN RAPID STAT 04/12/2017 7:2 0 PM TRIALS MANAGER TEST URINE STAT 04/12/2017 7:20 PM TRIALS MANAGER documented in this encounter Results * DRUG SCREEN RAPID (04/12/2017 7:20 PM TRIALS MANAGER) CANNABINOIDS SCREEN (U) NEGATIVE 04/13/2017 5:43 AM TRIALS MANAGER [facility] PHENCYCLIDINE PCP (U) NEGATIVE 04/13/2017 5:43 AM TRIALS MANAGER [facility] COCAINE METABOLITES (U) NEGATIVE 04/13/2017 5:43 AM [facility] METHAMPHETAMINE (U) NEGATIVE 04/13 5:43 AM [facility] OPIATE SCREEN (U) POSITIVE 018 5:43 AM [facility] Comment: A POSITIVE SCREEN INDICATES THE DRUG IS PRESENT ABOVE A DEFINED CUTOFF OF 100 NG/ML. USE FOR MEDICAL PURPOSES ONLY. IF CONFIRMATION IS DESIRED PLEASE CONTACT THE LAB WITHIN ONE WEEK. AMPHETAMINE (U) NEGATIVE 8 5:43 AM [facility] BENZODIAZEPINES SCREEN (U) NEGATIVE 04/13/2017 5:43 AM [facility] TRICYCLIC ANTIDEPRESSANT SCREEN (U) NEGATIVE 04/13/2017 5:43 AM [facility] METHADONE (U) NEGATIVE 04/13/2017 5:43 AM [facility] BARBITURATES SCREEN (U) NEGATIVE 04/13/2017 5:43 AM [facility] OXYCODONE SCREEN (U) NEGATIVE 04/13/2017 5:43 AM [facility] PROPOXYPHENE SCREEN (U) NEGATIVE 04/13/2017 5:43 AM [facility] BUPRENORPHINE SCREEN (U) NEGATIVE 04/13/2017 5:43 AM [facility] 04/12/2017 7:20 PM TRIALS MANAGER 04/13/2017 5:20 AM [facility] us Generic Conversion Md MENDOZA URINE ORDERABLES Final Result [facility] [address] [place] [address], * TEST URINE (04/12/2017 7:20 PM [facility]) PREG TEST NEGATIVE NEGATIVE 04/12/2017 8:42 PM [facility] SPECIFIC GRAVITY (U) 1.011 04/12/2017 8:42 PM [facility] URINE SPECIMEN / Unknown 04/12/2017 7:20 PM TRIALS MANAGER 04/12/2017 8:27 PM TRIALS MANAGER us Generic Conversion Md MENDOZA URINE ORDERABLES Final Result [facility] [address] [place] [id number], * URINALYSIS COMPLETE W/RFX TO CULTURE (04/12/2017 7:20 PM TRIALS MANAGER) SPECIMEN TYPE URINE CLEAN CATCH 04/12/2017 8:27 PM [facility] COLOR (U) YELLOW 04/12/2017 8:41 PM [facility] TRANSPARENCY HAZY 04/12/2017 8:41 PM [facility] SPECIFIC GRAVITY (U) 1.011 1.002 - 1.035 04/12/2017 8:41 PM [facility] U PH 6.0 5.0 - 9.0 04/12/2017 8:41 PM [facility] LEUKOCYTES (U) NEGATIVE NEGATIVE 04/12/2017 8:41 PM [facility] NITRITES NEGATIVE NEGATIVE 04/12/2017 8:41 PM [facility] PROTEIN (U) NEGATIVE NEGATIVE 04/12/2017 8:41 PM [facility] URINE GLUCOSE NEGATIVE NEGATIVE 04/12/2017 8:41 PM [facility] KETONES MG/DL (U) NEGATIVE NEGATIVE 04/12/2017 8:41 PM [facility] UROBILINOGEN < 2.0 0 - 1 EU/DL 04/12/2017 8:41 PM [facility] BILIRUBIN (U) NEGATIVE NEGATIVE 04/12/2017 8:41 PM [facility] BLOOD (U) NEGATIVE NEGATIVE 04/12/2017 8:41 PM [facility] CULTURE & SENSITIVITY INDICATED? CULTURE IS NOT INDICATED 04/12/2017 8:41 PM [facility] MUCUS RARE 04/12/2017 8:41 PM [facility] WBC/HPF 0-5 /HPF 04/12/2017 8:41 PM [facility] RBC/HPF 0-3 /HPF 04/12/2017 8:41 PM [facility] SQUAMOUS EPITHELIALS MODERATE 04/12/2017 8:41 PM [facility] 04/12/2017 7:20 PM TRIALS MANAGER 04/12/2017 8:26 PM [facility] us Generic Conversion Md MENDOZA URINE ORDERABLES Final Result [facility] [address] [place] [address], documented in this encounter Visit Diagnoses Diagnosis Right lower quadrant pain Abdominal pain, right lower quadrant documented in this encounter
--- OUTSIDE RECORDS SUMMARY | 2024-03-20 11:57 | XMS_ITS | Encounter Summary ---
Author Organization [facility] Address [address] [place] [address]. [place], [place] [address] [place] [address] Care Team Providers Care Social Sciences Department Chair Name Role Phone Ashley ZUNIGA MD, Hermes Perez Primary Care Provid er Encounter Details Date Type Department Care Team (Latest Contact Info) Description 03/24/2017 Abstract [facility] , Lazara Lange MD Social History Tobacco Use Types Packs/Day Years Used Date Smoking Tobacco: Never Assessed Comments Unknown Sex and Gender Information Value Date Recorded Sex Assigned at Not on file Legal Sex Female 9:15 PM STAIN DIPPER Gender Identity Not on file Sexual Orientation Not on file documented as of this encounter Last Filed Vital Signs Vital Sign Reading Time Taken Comments Blood Pressure 110/70 03/24/2017 10:40 AM STAIN DIPPER Pulse 76 03/24/2017 10:40 AM STAIN DIPPER Temperature - - Respiratory Rate - - Oxygen Saturation - - Inhaled Oxygen Concentration - - Weight 68 kg (150 lb) 03/24/2017 10:40 AM STAIN DIPPER Height 157.5 cm (5' 2 ) 03/24/2017 10:40 AM STAIN DIPPER Body Mass Index 27.44 03/24/2017 10:40 AM STAIN DIPPER documented in this encounter Progress Notes * Maria Isabel Jennings MD - 03/24/2017 12:00 AM CST Patient Visit Note Active Problems ? Abnormal Pap Smear - Lgsil ? Cervical Dysplasia ? A63.0 - Condyloma Acuminatum ? 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 Z94.4 - Liver Transplant Recipient Chief Complaint ? The Chief Complaint is: check spot on leg. brendan. . History of Present Illness This is a 36 year old Female with the following history: Positive Symptoms Pertinent negative symptoms: Other History ? Medication list reviewed. Allergies ? Aspirin ? Rocael-Tab (Erythromycin) ? Tetracaine HCl ? Toradol (Ketorolac) ? Tylenol #3 (Acetaminophen + Codeine) Reaction: Skin Rashes, Hives Current Medication ? HYDROmorphone HCl 2MG Oral Tablet 1 every 4 - 6 hours as needed, 30 days, 0 refills ? Prograf 1MG Oral Capsule, conventional 2 twice a day 0 days, 0 refills ? Sodium Bicarbonate 650MG Oral Tablet 2 three times a day 0 days, 0 refills Subjective The patient is a 36 -year-old female who presents for followup of pelvic pain Chief Complaint The Chief Complaint is: Check spot on leg. brendan. Past Medical/Surgical History Reported: Last pap smear date 04/2016 NML done at office and result: abnormal LGSIL. Surgical / Procedural: Surgical / procedural history Liver Transplant 1992 double hernia 1986 [place] procedure 1982. Prior surgery Left breast fibroadenoma. Pt has a history of VIN3 and IFEANYI 3. Has seen in [place] in the past. Recent Hospitalizatiion for Pancreatitis 09/2016. : 3 and para 2. Liver transplant 1992. Procedural: ? Thermal endometrial ablation Surgical: ? Tubal ligation 05/22/2012 Social History Behavioral: Cigarette smoking and smoking status: Current everyday smoker 1 ppd for 15 + years. Alcohol: No consumption of alcohol. Drug Use: Not using drugs. Work: Occupation was unknown. Sexual: Sexually active. Pt is and has 2 children. Physical Findings ? Vitals taken 03/24/2017 10:40 am BP-Sitting 110/70 mmHg Pulse Rate-Sitting 76 bpm Height 62 in Weight 150 lbs Body Mass Index 27.4 kg/m2 Body Surface Area 1.69 m2 Abdomen: Palpation: ? Abdominal tenderness Tender to palpation RLQ , no rebound. ?? No mass was palpated in the abdomen. Liver: ?? Not enlarged. Spleen: ?? Not enlarged. There is approximately 1-2 cm mass below the skin on right medial thigh. I suspect it is a sebaceous cyst. Therapy ? Clinical summary provided to patient. Counseling/Education ? Smoking cessation advised Plan ? Other Aldara 5 % tube, as directed appy to area 3 times a week at hs. Max 16 weeks., 30 days, 2 refills We will obtain a pelvic ultrasound today. We will see her back in two weeks to reassess right thighlesion. We will refer her to Dr. Le for diagnostic laparoscopy. Care Team Hermes Ramirez Primary Care Maria Isabel Jennings MD Electronically signed by: MARIA ISABEL JENNINGS Date: 04/03/2017 15:37 * Maria Isabel Jennings MD - 03/24/2017 12:00 AM CST Patient Visit Note History of Present Illness This is a 36 year old Female with the following history: Positive Symptoms Pertinent negative symptoms: Other History Tests Imaging: An ultrasound was performed by: Fran. IMPRESSION: Paty de los santos sono for pelvic pain and superficial lump on inner Rt thigh: Normal uterus and ovaries; no masses/fluid seen; unable to visualize anything over palpable area likely due to thesuperficial nature of the mass and not having a superfical probe; undiagnostic palpable area with sono in office. -fran. Maria Isabel Jennings MD Electronically signed by: MARIA ISABEL JENNINGS Date: 03/26/2017 16:51 documented in this encounter Plan of Treatment Not on file documented as of this encounter Visit Diagnoses Not on filedocumented in this encounter Care Teams Social Sciences Department Chair Relationship Specialty Start Date End Date Hermes Ramirez III, MD [facility] [place] [id number] PCP - General FAMILY PRACTICE 06/20/17 documented as of this encounter
--- OUTSIDE RECORDS SUMMARY | 2024-03-20 11:57 | XMS_ITS | Encounter Summary ---
Author Organization [facility] Address [address] [place] [address]. [place] [address] [place] [address] Care Team Providers Care Cargo Services Coordinator Name Role Phone Unavailable Primary Care Provider Unavailabl e Encounter Details Date Type Department Care Team (Late st Contact Info) Description 05/30/2017 Emergency [facility] Emergency [address] [place] [address] Danish Menjivar MD [address] [place] [address] Social History Tobacco Use Types Packs/Day Years Used Date Smoking Tobacco: Never Assessed Comments Unknown Sex and Gender Information Value Date Recorded Sex Assigned at Not on file Legal Sex Female 9:15 PM METALS SALES REPRESENTATIVE Gender Identity Not on file Sexual Orientation Not on file documented as of this encounter Plan of Treatment Not on file documented as of this encounter Visit Diagnoses Diagnosis Cyst of right ovary Other and unspecified ovarian cyst documented in this encounter
--- OUTSIDE RECORDS SUMMARY | 2024-03-20 11:57 | XMS_ITS | Encounter Summary ---
Author Organization [facility] Address [address] [place] [address]. [place], [place] [address] [place] [address] Care Team Providers Care Marine Reporter Name Role Phone Ashley ZUNIGA MD, Hermes Perez Primary Care Provid er Encounter Details Date Type Department Care Team (Latest Contact Info) Description 04/19/2017 Abstract [facility] Social History Tobacco Use Types Packs/Day Years Used Date Smoking Tobacco: Never Assessed Comments Unknown Sex and Gender Information Value Date Recorded Sex Assigned at Not on file Legal Sex Female 9:15 PM GAME SHOW HOST Gender Identity Not on file Sexual Orientation Not on file documented as of this encounter Plan of Treatment Not on file documented as of this encounter Visit Diagnoses Not on filedocumented in this encounter Care Teams Marine Reporter Relationship Specialty Start Date End Date Hermes Ramirez III, MD [address] [facility] [address] [place] [address] PCP - General FAMILY PRACTICE 06/20/17 documented as of this encounter
--- OUTSIDE RECORDS SUMMARY | 2024-03-20 11:57 | XMS_ITS | Encounter Summary ---
Author Organization [facility] Address [address] [place] [address]. [place] [address] [place] [address] Care Team Providers Care Manual Plate Filler Name Role Phone Unavailable Primary Care Provider Unavailabl e Encounter Details Date Type Department Care Team (Late st Contact Info) Description 04/21/2017 Orders Only [place] [address] , Generic Conversion, Social History Tobacco Use Types Packs/Day Years Used Date Smoking Tobacco: Never Assessed Comments Unknown Sex and Gender Information Value Date Recorded Sex Assigned at Not on file Legal Sex Female 9:15 PM GRIEVANCE AND APPEALS SPECIALIST Gender Identity Not on file Sexual Orientation Not on file documented as of this encounter Plan of Treatment Not on file documented as of this encounter Procedures Procedure Name Priority Date/Time Associated Diagnosis Comments VAGINITIS SCREEN STAT 10/06/2015 1:01 AM CDT documented in this encounter Results * VAGINITIS SCREEN (10/06/2015 1:01 AM CDT) SPEC DESCRIPTION GENITAL 10/05/2015 10:22 PM CDT [facility] SPECIAL REQUESTS NO SPECIAL REQUEST 10/05/2015 10:22 PM CDT [facility] RESULT TRICHOMONAS VAGINALIS NEGATIVE 10/06/2015 1:01 AM CDT [facility] RESULT GARDNERELLA VAGINALIS POSITIVE 10/06/2015 1:01 AM CDT [facility] RESULT TRACEY SPECIES NEGATIVE 10/06/2015 1:01 AM CDT [facility] GENITAL SWAB / Unknown 10/05/2015 11:38 PM CDT Comment:ENDOCERVICAL us Generic Conversion Md MENDOZA MICROBIOLOGY - GENERAL ORDERABLES Final Result Performing Organization Address City/State/[facility] Co de Phone Number [facility] [address] [place] [address], [id number] documented in this encounter Visit Diagnoses Not on filedocumented in this encounter
--- OUTSIDE RECORDS SUMMARY | 2024-03-20 11:57 | XMS_ITS | Encounter Summary ---
Author Organization [facility] Address [address] [place] [address]. [place] [address] [place] [address] Care Team Providers Care Induction Coordination Engineer Name Role Phone Ashley ZUNIGA MD, Hermes Perez Primary Care Provid er Encounter Details Date Type Department Care Team (Late st Contact Info) Description 04/02/2017 Abstract [facility] [address] [place] [address] Devan [place] MD [address] [place] [address] Social History Tobacco Use Types Packs/Day Years Used Date Smoking Tobacco: Never Assessed Comments Unknown Sex and Gender Information Value Date Recorded Sex Assigned at Not on file Legal Sex Female 9:15 PM FLATBED COMPANY DRIVER Gender Identity Not on file Sexual Orientation Not on file documented as of this encounter Plan of Treatment Not on file documented as of this encounter Procedures Procedure Name Priority Date/Time Associated Diagnosis Comments STREP A, DNA Routine 04/02/2017 6:49 PM FLATBED COMPANY DRIVER RAPID STREP A STAT 04/02/2017 6:49 PM FLATBED COMPANY DRIVER URINALYSIS WI REFLEX TO CULTURE STAT 04/02/2017 5:53 PM FLATBED COMPANY DRIVER documented in this encounter Results * STREP A, DNA (04/02/2017 6:49 PM FLATBED COMPANY DRIVER) SPEC DESCRIPTION THROAT 04/02/2017 7:06 PM FLATBED COMPANY DRIVER [facility] SPECIAL REQUESTS NO SPECIAL REQUEST 04/02/2017 7:06 PM FLATBED COMPANY DRIVER [facility] RESULT POSITIVE 04/02/2017 8:04 PM [facility] THROAT SWAB / Unknown 04/02/2017 6:49 PM FLATBED COMPANY DRIVER 04/02/2017 7:06 PM FLATBED COMPANY DRIVER us Generic Conversion Md MENDOZA MICROBIOLOGY - GENERAL ORDERABLES Final Result Performing Organization Address [facility] Co de Phone Number [facility] [address] [place] [address], [place] [phone] * RAPID STREP A (04/02/2017 6:49 PM FLATBED COMPANY DRIVER) SPEC DESCRIPTION THROAT 04/02/2017 6:45 PM [facility] SPECIAL REQUESTS NO SPECIAL REQUEST 04/02/2017 6:45 PM [facility] RAPID STREP TEST NEGATIVE 04/02/2017 7:05 PM [facility] THROAT SWAB / Unknown 04/02/2017 6:49 PM FLATBED COMPANY DRIVER 04/02/2017 6:53 PM FLATBED COMPANY DRIVER us Generic Conversion Md MENDOZA MICROBIOLOGY - GENERAL ORDERABLES Final Result Performing Organization Address [facility] Co de Phone Number [address] [address], [place] [phone] * URINALYSIS WI REFLEX TO CULTURE (04/02/2017 5:53 PM [employer]AT[employer] DRIVER) COLOR (U) YELLOW 04/02/2017 6:23 PM [facility] TRANSPARENCY CLEAR 04/02/2017 6:23 PM [facility] SPECIFIC GRAVITY (U) 1.015 1.000 - 1.025 04/02/2017 6:23 PM [facility] U PH 5.5 5.0 - 8.0 04/02/2017 6:23 PM [facility] LEUKOCYTES (U) NEGATIVE NEGATIVE 04/02/2017 6:23 PM [facility] NITRITES NEGATIVE NEGATIVE 04/02/2017 6:23 PM [facility] PROTEIN (U) NEGATIVE NEGATIVE 04/02/2017 6:23 PM [facility] URINE GLUCOSE NEGATIVE NEGATIVE 04/02/2017 6:23 PM [facility] KETONES MG/DL (U) NEGATIVE NEGATIVE 04/02/2017 6:23 PM [facility] UROBILINOGEN 0.2 <1.0 EU/DL 04/02/2017 6:23 PM [facility] BILIRUBIN (U) NEGATIVE NEGATIVE 04/02/2017 6:23 PM [facility] BLOOD (U) NEGATIVE NEGATIVE 04/02/2017 6:23 PM [facility] WBC/HPF 0-5 0 - 5 /HPF 04/02/2017 6:23 PM [facility] RBC/HPF 0-5 0 - 5 /HPF 04/02/2017 6:23 PM [facility] EPI/HPF FEW /LPF 04/02/2017 6:23 PM [facility] BACTERIA (U) TRACE /HPF 04/02/2017 6:23 PM [facility] MUCUS PRESENT 04/02/2017 6:23 PM [facility] OTHER CASTS (U) HYALINE /LPF 8 6:23 PM [facility] Comment:5-10 CULTURE & SENSITIVITY INDICATED? NOT INDICATED 04/02/2017 6:23 PM [facility] OTHER (type in comments) 04/02/2017 5:53 PM FLATBED COMPANY DRIVER 04/02/2017 6:14 PM FLATBED COMPANY DRIVER Comment:URINE SPECIMEN~URINE SPECIMEN us Generic Conversion Md MENDOZA URINE ORDERABLES Final Result [facility] [address] [place] [address], documented in this encounter Visit Diagnoses Diagnosis Migraine without status migrainosus, not intractable Migraine, unspecified, without mention of intractable migraine without mention of status migrainosus documented in this encounter Care Teams Induction Coordination Engineer Relationship Specialty Start Date End Date Hermes Ramirez III, MD [address] [facility] [address] [place] [address] PCP - General FAMILY PRACTICE 06/20/17 documented as of this encounter
--- OUTSIDE RECORDS SUMMARY | 2024-03-20 11:57 | XMS_ITS | Encounter Summary ---
Author Organization [facility] Address [address] [place] [address]. [place] [address] [place] [address] Care Team Providers Care Die Turner Name Role Phone Ashley ZUNIGA MD, Hermes Perez Primary Care Provid er Encounter Details Date Type Department Care Team (Late st Contact Info) Description 04/11/2017 Abstract [facility] [address] [place] [address] Tonny Cavazos MD [address] [place] [address] Social History Tobacco Use Types Packs/Day Years Used Date Smoking Tobacco: Never Assessed Comments Unknown Sex and Gender Information Value Date Recorded Sex Assigned at Not on file Legal Sex Female 9:15 PM INTELLIGENCE CONSULTANT Gender Identity Not on file Sexual Orientation Not on file documented as of this encounter Plan of Treatment Not on file documented as of this encounter Visit Diagnoses Diagnosis Cyst of right ovary Other and unspecified ovarian cyst documented in this encounter Care Teams Die Turner Relationship Specialty Start Date End Date Hermes Ramirez III, MD [address] [facility] [address] [place] [address] PCP - General FAMILY PRACTICE 06/20/17 documented as of this encounter
--- OUTSIDE RECORDS SUMMARY | 2024-03-20 11:57 | XMS_ITS | Encounter Summary ---
Author Organization [facility] Address [address] [place] [address]. [place] [address] [place] [address] Care Team Providers Care Senior System Operator Name Role Phone Unavailable Primary Care Provider Unavailabl e Encounter Details Date Type Department Care Team (Late st Contact Info) Description 04/21/2017 Orders [place] [address] , Generic Conversion, Social History Tobacco Use Types Packs/Day Years Used Date Smoking Tobacco: Never Assessed Comments Unknown Sex and Gender Information Value Date Recorded Sex Assigned at Not on file Legal Sex Female 9:15 PM CODING TECHNICIAN Gender Identity Not on file Sexual Orientation Not on file documented as of this encounter Plan of Treatment Not on file documented as of this encounter Procedures Procedure Name Priority Date/Time Associated Diagnosis Comments CHLAMYDIA GC BY PCR Nurse Collected Priority 10/09/2015 12:35 PM CDT documented in this encounter Results * CHLAMYDIA GC BY PCR (10/09/2015 12:35 PM CDT) N.GONORRHOEAE RNA TMA NEGATIVE NEGATIVE 10/09/2015 12:35 PM CDT [facility] CHLAMYDIA PCR NEGATIVE NEGATIVE 10/09/2015 12:35 PM CDT [facility] SPECIMEN SOURCE GENITAL 10/05/2015 10:22 PM CDT [facility] 10/05/2015 11: 39 PM CDT us Generic Conversion Md MENDOZA MICROBIOLOGY - GENERAL ORDERABLES Final Result [facility] [address] [place] [address], [id number] documented in this encounter Visit Diagnoses Not on filedocumented in this encounter
--- OUTSIDE RECORDS SUMMARY | 2024-03-20 11:57 | XMS_ITS | Encounter Summary ---
Author Organization [facility] Address [address] [place] [address]. [place] [address] [place] [address] Care Team Providers Care Marketing Research Analyst Name Role Phone Unavailable Primary Care Provider Unavailabl e Encounter Details Date Type Department Care Team (Late st Contact Info) Description 05/04/2017 Orders Only [place] [address] , Generic Conversion, Social History Tobacco Use Types Packs/Day Years Used Date Smoking Tobacco: Never Assessed Comments Unknown Sex and Gender Information Value Date Recorded Sex Assigned at Not on file Legal Sex Female 9:15 PM PROPOSAL WRITER Gender Identity Not on file Sexual Orientation Not on file documented as of this encounter Plan of Treatment Not on file documented as of this encounter Procedures Procedure Name Priority Date/Time Associated Diagnosis Comments LEGIONELLA AG URINE Nurse Collected Priority 11/26/2016 10:27 AM CDT documented in this encounter Results * LEGIONELLA AG URINE (11/26/2016 10:27 AM CDT) LEGIONELLA ANTIGEN (URINE) NEGATIVE NEGATIVE 11/26/2016 10:27 AM CDT [facility] Comment: PRESUMPTIVE NEGATIVE FOR L. PNEUMOPHILA SEROGROUP 1 ANTIGEN IN URINE, SUGGESTING NO RECENT OR CURRENT INFECTION. INFECTION DUE TO LEGIONELLA CANNOT BE RULED OUT SINCE OTHER SEROGROUPS AND SPECIES MAY CAUSE DISEASE, ANTIGEN MAY NOT BE PRESENT IN URINE IN EARLY INFECTION, AND THE LEVEL OF ANTIIGNE PRESENT IN THE URINE MAY BE BELOW THE DETECTION LIMIT OF THE TEST. URINE SPECIMEN / Unknown 11/26/2016 8:02 AM CDT us Generic Conversion Md MENDOZA MICROBIOLOGY - GENERAL ORDERABLES Final Result Performing Organization Address City/State/[facility] Co de Phone Number [facility] [address] [place] [address], [id number] documented in this encounter Visit Diagnoses Not on filedocumented in this encounter
--- OUTSIDE RECORDS SUMMARY | 2024-03-20 11:57 | XMS_ITS | Encounter Summary ---
Author Organization [facility] Address [address] [place] [address]. [place], [place] [address] [place] [address] Care Team Providers Care Tooth Cutter Spur Name Role Phone Unavailable Primary Care Provider Unavailabl e Encounter Details Date Type Department Care Team (Late st Contact Info) Description 02/27/2017 Emergency [facility] [address] [place] [address] Social History Tobacco Use Types Packs/Day Years Used Date Smoking Tobacco: Never Assessed Comments Unknown Sex and Gender Information Value Date Recorded Sex Assigned at Not on file Legal Sex Female 9:15 PM GRAZING AIDE Gender Identity Not on file Sexual Orientation Not on file documented as of this encounter Plan of Treatment Not on file documented as of this encounter Visit Diagnoses Diagnosis Headache documented in this encounter
--- OUTSIDE RECORDS SUMMARY | 2024-03-20 11:58 | XMS_ITS | Encounter Summary ---
Author Organization [facility] Address [address] [place] [address]. [place], [place] [address] [place] [address] Care Team Providers Care Electric Lift Truck Driver Name Role Phone Ashley ZUNIGA MD, Hermes Perez Primary Care Provid er Encounter Details Date Type Department Care Team (Latest Contact Info) Description 02/06/2017 Abstract [facility] Medical Group Lazara Case MD Social History Tobacco Use Types Packs/Day Years Used Date Smoking Tobacco: Never Assessed Comments Unknown Sex and Gender Information Value Date Recorded Sex Assigned at Not on file Legal Sex Female 9:15 PM HEART COORDINATOR Gender Identity Not on file Sexual Orientation Not on file documented as of this encounter Last Filed Vital Signs Vital Sign Reading Time Taken Comments Blood Pressure 132/84 02/06/2017 1:18 PM HEART COORDINATOR Pulse - - Temperature - - Respiratory Rate - - Oxygen Saturation - - Inhaled Oxygen Concentration - - Weight 66.2 kg (146 lb) 02/06/2017 1:18 PM HEART COORDINATOR Height 157.5 cm (5' 2 ) 02/06/2017 1:18 PM HEART COORDINATOR Body Mass Index 26.7 02/06/2017 1:18 PM HEART COORDINATOR documented in this encounter Plan of Treatment Not on file documented as of this encounter Visit Diagnoses Not on filedocumented in this encounter Care Teams Electric Lift Truck Driver Relationship Specialty Start Date End Date Hermes Ramirez III, MD [address] [facility] [address] [place] [address] PCP - General FAMILY PRACTICE 06/20/17 documented as of this encounter
--- OUTSIDE RECORDS SUMMARY | 2024-03-20 11:58 | XMS_ITS | Encounter Summary ---
Author Organization [facility] Address [address] [place] [address]. [place] [address] [place] [address] Care Team Providers Care Distributor Of Directories Name Role Phone Ashley ZUNIGA MD, Hermes Perez Primary Care Provid er Encounter Details Date Type Department Care Team (Late st Contact Info) Description 02/18/2017 Abstract [facility] [address] [facility] [place] [address] Manjinder Bradley MD [address] [place] [address] Social History Tobacco Use Types Packs/Day Years Used Date Smoking Tobacco: Never Assessed Comments Unknown Sex and Gender Information Value Date Recorded Sex Assigned at Not on file Legal Sex Female 9:15 PM BRAIDER TENDER Gender Identity Not on file Sexual Orientation Not on file documented as of this encounter Plan of Treatment Not on file documented as of this encounter Procedures Procedure Name Priority Date/Time Associated Diagnosis Comments CBC W/DIFF AUTOMATED STAT 02/18/2017 7:21 PM BRAIDER TENDER URINALYSIS WI REFLEX TO CULTURE STAT 02/18/2017 7:20 PM BRAIDER TENDER TEST URINE STAT 02/18/2017 7:20 PM BRAIDER TENDER documented in this encounter Results * (ABNORMAL) CBC W/DIFF AUTOMATED (02/18/2017 7:21 PM BRAIDER TENDER) WBC 4.3(L) 4.5 - 10.8 x10'3/uL 02/18/2017 7:58 PM [facility] RBC 2.95(L) 4.10 - 5.40 x10'6/uL 02/18/2017 7:58 PM [facility] HGB 10.1(L) 12.0 - 16.0 G/DL 02/18/2017 7:58 PM [facility] HCT 28.5(L) 36.0 - 47.0 % 02/18/2017 7:58 PM [facility] MCV 96.6 78.0 - 100.0 FL 02/18/2017 7:58 PM [facility] MCH 34.2(H) 27.0 - 31.0 PG 02/18/2017 7:58 PM [facility] MCHC 35.4 33.0 - 36.0 G/DL 02/18/2017 7:58 PM [facility] RDW 12.7 11.5 - 14.5 % 02/18/2017 7:58 PM [facility] PLT 58(L) 150 - 350 x10'3/uL 02/18/2017 7:58 PM [facility] MPV 11.4(H) 7.4 - 10.4 FL 02/18/2017 7:58 PM [facility] SEG NEUTROPHILS 62.0 % 7 8:51 PM [facility] LYMPHOCYTES 20.0 % 02/18/2017 8:51 PM [facility] MONOCYTES 6.0 % 02/18/2017 8:51 PM [facility] EOSINOPHILS 11.6 % 02/18/2017 8:51 PM [facility] BASOPHILS 0.2 % 02/18/2017 8:51 PM [facility] IMMATURE GRANS % 0.2 % 02/19/20 17 8:51 PM [facility] NRBC 0.0 % 02/18/2017 8:51 PM [facility] ABS. NEUTROPHILS 2.67 1.60 - 8.30 x10'3/uL 02/18/2017 8:51 PM [facility] ABS. LYMPHOCYTES 0.86 0.80 - 4.70 x10'3/uL 02/18/2017 8:51 PM [facility] ABS. MONOCYTES 0.26 0.00 - 1.50 x10'3/uL 02/18/2017 8:51 PM [facility] ABS. EOSINOPHILS 0.50(H) 0.00 - 0.40 x10'3/uL 02/18/2017 8:51 PM [facility] ABS. BASOPHILS 0.01 0.00 - 0.20 x10'3/uL 02/18/2017 8:51 PM [facility] ABS. IMMATURE GRANULOCYTES 0.01 0.00 - 0.03 x10'3/uL 02/18/2017 8:51 PM [facility] ABS. NUCLEATED RBC'S 0.00 0.00 x10'3/uL 02/18/2017 8:51 PM [facility] PLT MORPH. NORMAL 02/18/2017 8:51 PM [facility] RBC MORPHOLOGY 1+ 02/18/2017 8:51 PM [facility] Comment:OVALOCYTES1+POLYCHRO MASIA OTHER (type in comments) 02/18/2017 7:21 PM BRAIDER TENDER 02/18/2017 7:24 PM BRAIDER TENDER Comment:WHOLE BLOOD SAMPLE us Generic Conversion Md [facility] Final R esult [facility] [address] [place] [address], * (ABNORMAL) URINALYSIS WI REFLEX TO CULTURE (02/18/2017 7:20 PM BRAIDER TENDER) COLOR (U) YELLOW 02/18/2017 8:37 PM [facility] TRANSPARENCY CLEAR 02/18/2017 8:37 PM [facility] SPECIFIC GRAVITY (U) 1.010 1.000 - 1.025 02/18/2017 8:37 PM [facility] U PH 6.5 5.0 - 8.0 02/18/2017 8:37 PM BRAIDER TENDER [facility] LEUKOCYTES (U) NEGATIVE NEGATIVE 02/18/2017 8:37 PM BRAIDER TENDER [facility] NITRITES NEGATIVE NEGATIVE 02/18/2017 8:37 PM BRAIDER TENDER [facility] PROTEIN (U) NEGATIVE NEGATIVE 02/18/2017 8:37 PM BRAIDER TENDER [facility] URINE GLUCOSE NEGATIVE NEGATIVE 02/18/2017 8:37 PM BRAIDER TENDER [facility] KETONES MG/DL (U) NEGATIVE NEGATIVE 02/18/2017 8:37 PM BRAIDER TENDER [facility] UROBILINOGEN 0.2 <1.0 EU/DL 02/18/2017 8:37 PM [facility] BILIRUBIN (U) NEGATIVE NEGATIVE 02/18/2017 8:37 PM [facility] BLOOD (U) NEGATIVE NEGATIVE 02/18/2017 8:37 PM [facility] WBC/HPF 0-5 0 - 5 /HPF 02/18/2017 8:37 PM [facility] RBC/HPF 5-10(A) 0 - 5 /HPF 02/18/2017 8:37 PM [facility] EPI/HPF OCCASIONAL /LPF 02/18/2017 8:37 PM [facility] BACTERIA (U) TRACE /HPF 02/18/2017 8:37 PM [facility] CULTURE & SENSITIVITY INDICATED? NOT INDICATED 02/18/2017 8:37 PM [facility] OTHER (type in comments) 02/18/2017 7:20 PM BRAIDER TENDER 02/18/2017 7:46 PM BRAIDER TENDER Comment:URINE SPECIMEN~URINE SPECIMEN us Generic Conversion Md [facility] URINE ORDERABLES Final Result [facility] [address] [place] [address], * TEST URINE (02/18/2017 7:20 PM BRAIDER TENDER) PREG TEST NEGATIVE 02/18/2017 7:55 PM BRAIDER TENDER [facility] SPECIFIC GRAVITY (U) 1.010 02/18/2017 7:55 PM BRAIDER TENDER [facility] URINE SPECIMEN / Unknown 02/18/2017 7:20 PM BRAIDER TENDER 02/18/2017 7:46 PM BRAIDER TENDER us Generic Conversion Md [facility] URINE ORDERABLES Final Result [facility] [address] [place] [address], documented in this encounter Visit Diagnoses Diagnosis Cyst of ovary Other and unspecified ovarian cyst documented in this encounter Care Teams Distributor Of Directories Relationship Specialty Start Date End Date Hermes Ramirez III, MD [facility] [address] [address] PCP - General FAMILY PRACTICE 06/20/17 documented as of this encounter
--- OUTSIDE RECORDS SUMMARY | 2024-03-20 11:58 | XMS_ITS | Encounter Summary ---
Author Organization [facility] Address [address] [place] [address]. [place], [place] [address] [place] [address] Care Team Providers Care Marketing Operations Manager Name Role Phone Unavailable Primary Care Provider Unavailabl e Encounter Details Date Type Department Care Team (Late st Contact Info) Description 02/15/2017 Emergency [facility] Emergency [address] [place] [address] Social History Tobacco Use Types Packs/Day Years Used Date Smoking Tobacco: Never Assessed Comments Unknown Sex and Gender Information Value Date Recorded Sex Assigned at Not on file Legal Sex Female 9:15 PM BENZOL STILL OPERATOR Gender Identity Not on file Sexual Orientation Not on file documented as of this encounter Plan of Treatment Not on file documented as of this encounter Visit Diagnoses Diagnosis Right lower quadrant pain Abdominal pain, right lower quadrant documented in this encounter
--- OUTSIDE RECORDS SUMMARY | 2024-03-20 11:58 | XMS_ITS | Encounter Summary ---
Author Organization [facility] Address [address] [place] [address]. [place] [address] [place] [address] Care Team Providers Care Diversional Therapist Name Role Phone Unavailable Primary Care Provider Unavailabl e Encounter Details Date Type Department Care Team (Late st Contact Info) Description 02/15/2017 Orders Only [place] [address] , Generic Conversion, Social History Tobacco Use Types Packs/Day Years Used Date Smoking Tobacco: Never Assessed Comments Unknown Sex and Gender Information Value Date Recorded Sex Assigned at Not on file Legal Sex Female 9:15 PM CUSTOMS AGENT Gender Identity Not on file Sexual Orientation Not on file documented as of this encounter Plan of Treatment Not on file documented as of this encounter Procedures Procedure Name Priority Date/Time Associated Diagnosis Comments BASIC METABOLIC PANEL STAT 02/15/2017 3:02 PM CUSTOMS AGENT documented in this encounter Results * (ABNORMAL) BASIC METABOLIC PANEL (02/15/2017 3:02 PM CUSTOMS AGENT) SODIUM S/P/B 140 135 - 147 MMOL/L 02/15/2017 3:58 PM CUSTOMS AGENT [facility] POTASSIUM S/P/B 4.4 3.5 - 5.0 MMOL/L 02/15/2017 3:58 PM CUSTOMS AGENT [facility] CHLORIDE S/P/B 116(H) 98 - 107 MMOL/L 02/15/2017 3:58 PM CUSTOMS AGENT [facility] CALCIUM S/P/B 8.3(L) 8.4 - 10.2 MG/DL 02/15/2017 3:58 PM CUSTOMS AGENT [facility] CO2 18.8(L) 22 - 29 MMOL/L 02/15/2017 3:58 PM CUSTOMS AGENT [facility] GLUCOSE 95 70 - 109 MG/DL 02/15/2017 3:58 PM [facility] BUN 27(H) 7 - 19 MG/DL 02/15/2017 3:58 PM [facility] CREATININE S/P/B 2.30(H) 0.60 - 1.10 MG/DL 02/15/2017 3:58 PM [facility] OSMOLALITY (CALC) 284 02/15/2017 3:58 PM [facility] ANION GAP 5 MMOL/L 02/15/2017 3:58 PM [facility] PLASMA SPECIMEN / Unknown 02/15/2017 3:02 PM CUSTOMS AGENT 02/15/2017 3:03 PM CUSTOMS AGENT us Generic Conversion Md [facility] Final R esult [facility] [address] [place] [address], [id number] documented in this encounter Visit Diagnoses Not on filedocumented in this encounter
--- OUTSIDE RECORDS SUMMARY | 2024-03-20 11:58 | XMS_ITS | Encounter Summary ---
Author Organization [facility] Address [address] [place] [address]. [place] [address] [place] [address] Care Team Providers Care Spoilage Worker Name Role Phone Ashley ZUNIGA MD, Hermes Perez Primary Care Provid er Encounter Details Date Type Department Care Team (Latest Contact Info) Description 01/18/2017 Abstract [facility] Lazara Case MD Social History Tobacco Use Types Packs/Day Years Used Date Smoking Tobacco: Never Assessed Comments Unknown Sex and Gender Information Value Date Recorded Sex Assigned at Not on file Legal Sex Female 9:15 PM REMEDIAL MASSEUR Gender Identity Not on file Sexual Orientation Not on file documented as of this encounter Last Filed Vital Signs Vital Sign Reading Time Taken Comments Blood Pressure 120/70 01/18/2017 5:10 PM CDT Pulse 76 01/18/2017 5:10 PM CDT Temperature - - Respiratory Rate - - Oxygen Saturation - - Inhaled Oxygen Concentration - - Weight 64.9 kg (143 lb) 01/18/2017 5:10 PM CDT Height 157.5 cm (5' 2 ) 01/18/2017 5:10 PM CDT Body Mass Index 26.16 01/18/2017 5:10 PM CDT documented in this encounter Plan of Treatment Not on file documented as of this encounter Visit Diagnoses Not on filedocumented in this encounter Care Teams Spoilage Worker Relationship Specialty Start Date End Date Hermes Ramirez III, MD [address] [facility] [address] [place] [address] PCP - General FAMILY PRACTICE 06/20/17 documented as of this encounter
--- OUTSIDE RECORDS SUMMARY | 2024-03-20 11:58 | XMS_ITS | Encounter Summary ---
Author Organization [facility] Address [address] [place] [address]. [place] [address] [place] [address] Care Team Providers Care Auto Repair Shop Manager Name Role Phone Unavailable Primary Care Provider Unavailabl e Encounter Details Date Type Department Care Team (Late st Contact Info) Description 02/14/2017 Orders [place] [address] , Generic Conversion, Social History Tobacco Use Types Packs/Day Years Used Date Smoking Tobacco: Never Assessed Comments Unknown Sex and Gender Information Value Date Recorded Sex Assigned at Not on file Legal Sex Female 9:15 PM BILLING AUDITOR Gender Identity Not on file Sexual Orientation Not on file documented as of this encounter Plan of Treatment Not on file documented as of this encounter Procedures Procedure Name Priority Date/Time Associated Diagnosis Comments BASIC METABOLIC PANEL STAT 02/14/2017 5:10 PM BILLING AUDITOR documented in this encounter Results * (ABNORMAL) BASIC METABOLIC PANEL (02/14/2017 5:10 PM BILLING AUDITOR) SODIUM S/P/B 141 135 - 147 MMOL/L 02/14/2017 5:36 PM BILLING AUDITOR [facility] POTASSIUM S/P/B 4.9 3.5 - 5.0 MMOL/L 02/14/2017 5:36 PM BILLING AUDITOR [facility] Comment:SLIGHT HEMOLYSIS, RE SULT MAY BE AFFECTED. CHLORIDE S/P/B 115(H) 98 - 107 MMOL/L 02/14/2017 5:36 PM BILLING AUDITOR [facility] CALCIUM S/P/B 9.1 8.4 - 10.2 MG/DL 02/14/2017 5:36 PM BILLING AUDITOR [facility] CO2 17.5(L) 22 - 29 MMOL/L 02/14/2017 5:36 PM BILLING AUDITOR [facility] GLUCOSE 79 70 - 109 MG/DL 02/14/2017 5:36 PM [facility] BUN 32(H) 7 - 19 MG/DL 02/14/2017 5:36 PM [facility] CREATININE S/P/B 2.10(H) 0.60 - 1.10 MG/DL 02/14/2017 5:36 PM [facility] OSMOLALITY (CALC) 287 02/14/2017 5:36 PM BILLING AUDITOR [facility] ANION GAP 9 MMOL/L 02/14/2017 5:36 PM [facility] PLASMA SPECIMEN / Unknown 02/14/2017 5:10 PM BILLING AUDITOR 02/14/2017 5:12 PM BILLING AUDITOR us Generic Conversion Md [facility] Final R esult [facility] [address] [place] [address], [id number] documented in this encounter Visit Diagnoses Not on filedocumented in this encounter
--- OUTSIDE RECORDS SUMMARY | 2024-03-20 11:58 | XMS_ITS | Encounter Summary ---
Author Organization [facility] Address [address] [place] [address]. [place] [address] [place] [address] Care Team Providers Care Museum Or Zoo Director Name Role Phone Unavailable Primary Care Provider Unavailabl e Encounter Details Date Type Department Care Team (Late st Contact Info) Description 02/14/2017 Orders Only [place] [address] , Generic Conversion, Social History Tobacco Use Types Packs/Day Years Used Date Smoking Tobacco: Never Assessed Comments Unknown Sex and Gender Information Value Date Recorded Sex Assigned at Not on file Legal Sex Female 9:15 PM OPERATING ROOM MANAGER Gender Identity Not on file Sexual Orientation Not on file documented as of this encounter Plan of Treatment Not on file documented as of this encounter Procedures Procedure Name Priority Date/Time Associated Diagnosis Comments TEST URINE Nurse Collected Priority 02/14/2017 4:04 PM OPERATING ROOM MANAGER documented in this encounter Results * TEST URINE (02/14/2017 4:04 PM OPERATING ROOM MANAGER) PREG TEST NEGATIVE 02/14/2017 4:16 PM OPERATING ROOM MANAGER [facility] URINE SPECIMEN / Unknown 02/14/2017 4:04 PM OPERATING ROOM MANAGER 02/14/2017 4:11 PM OPERATING ROOM MANAGER us Generic Conversion Md [facility] URINE ORDERABLES Final Result [facility] [address] [place] [address], [id number] documented in this encounter Visit Diagnoses Not on filedocumented in this encounter
--- OUTSIDE RECORDS SUMMARY | 2024-03-20 11:58 | XMS_ITS | Encounter Summary ---
Author Organization [facility] Address [address] [place] [address]. [place] [address] [place] [address] Care Team Providers Care Biomedical Engineering Supervisor Name Role Phone Ashley ZUNIGA MD, Hermes Perez Primary Care Provid er Encounter Details Date Type Department Care Team (Late st Contact Info) Description 02/03/2017 Abstract [place] [address] [facility] [place] [address] Ziyad Hu MD [address] [place] [id number] Social History Tobacco Use Types Packs/Day Years Used Date Smoking Tobacco: Never Assessed Comments Unknown Sex and Gender Information Value Date Recorded Sex Assigned at Not on file Legal Sex Female 9:15 PM MANAGER OB Gender Identity Not on file Sexual Orientation Not on file documented as of this encounter Plan of Treatment Not on file documented as of this encounter Visit Diagnoses Diagnosis Right lower quadrant pain Abdominal pain, right lower quadrant documented in this encounter Care Teams Biomedical Engineering Supervisor Relationship Specialty Start Date End Date Hermes Ramirez III, MD [address] [facility] [address] [place] [address] PCP - General FAMILY PRACTICE 06/20/17 documented as of this encounter
--- OUTSIDE RECORDS SUMMARY | 2024-03-20 11:58 | XMS_ITS | Encounter Summary ---
Author Organization [facility] Address [address] [place] [address]. [place] [address] [place] [address] Care Team Providers Care Wire Chief Name Role Phone Unavailable Primary Care Provider Unavailabl e Encounter Details Date Type Department Care Team (Late st Contact Info) Description 02/14/[address] [facility] Emergency [address] [place] [address] Bailee Merchant MD [address] [place] [address] Social History Tobacco Use Types Packs/Day Years Used Date Smoking Tobacco: Never Assessed Comments Unknown Sex and Gender Information Value Date Recorded Sex Assigned at Not on file Legal Sex Female 9:15 PM BLANKET INSPECTOR Gender Identity Not on file Sexual Orientation Not on file documented as of this encounter Plan of Treatment Not on file documented as of this encounter Visit Diagnoses Diagnosis Abdominal pain Abdominal pain, unspecified site documented in this encounter
--- OUTSIDE RECORDS SUMMARY | 2024-03-20 11:58 | XMS_ITS | Encounter Summary ---
Author Organization [facility] Address [address] [place] [address]. [place], [place] [address] [place] [address] Care Team Providers Care Relationship Counselor Name Role Phone Ashley ZUNIGA MD, Hermes Perez Primary Care Provid er Encounter Details Date Type Department Care Team (Latest Contact Info) Description 02/18/2017 Abstract [facility] Social History Tobacco Use Types Packs/Day Years Used Date Smoking Tobacco: Never Assessed Comments Unknown Sex and Gender Information Value Date Recorded Sex Assigned at Not on file Legal Sex Female 9:15 PM MORTGAGE COUNSELOR Gender Identity Not on file Sexual Orientation Not on file documented as of this encounter Plan of Treatment Not on file documented as of this encounter Visit Diagnoses Not on filedocumented in this encounter Care Teams Relationship Counselor Relationship Specialty Start Date End Date Hermes Ramirez III, MD [address] [facility] [address] [place] [address] PCP - General FAMILY PRACTICE 06/20/17 documented as of this encounter
--- OUTSIDE RECORDS SUMMARY | 2024-03-20 11:58 | XMS_ITS | Encounter Summary ---
Author Organization [facility] Address [address] [place] [address]. [place], [place] [address] [place] [address] Care Team Providers Care Senior Pharmacy Technician Name Role Phone Ashley ZUNIGA MD, Hermes Perez Primary Care Provid er Encounter Details Date Type Department Care Team (Latest Contact Info) Description 01/29/2017 Abstract [facility] Social History Tobacco Use Types Packs/Day Years Used Date Smoking Tobacco: Never Assessed Comments Unknown Sex and Gender Information Value Date Recorded Sex Assigned at Not on file Legal Sex Female 9:15 PM STUNNER ANIMAL Gender Identity Not on file Sexual Orientation Not on file documented as of this encounter Plan of Treatment Not on file documented as of this encounter Visit Diagnoses Not on filedocumented in this encounter Care Teams Senior Pharmacy Technician Relationship Specialty Start Date End Date Hermes Ramirez III, MD [address] [facility] [address] [place] [address] PCP - General FAMILY PRACTICE 06/20/17 documented as of this encounter
--- OUTSIDE RECORDS SUMMARY | 2024-03-20 11:58 | XMS_ITS | Encounter Summary ---
Author Organization [facility] Address [address] [place] [address]. [place] [address] [place] [address] Care Team Providers Care Grout Pump Operator Name Role Phone Unavailable Primary Care Provider Unavailabl e Encounter Details Date Type Department Care Team (Late st Contact Info) Description 02/14/2017 Orders [place] [address] , Generic Conversion, Social History Tobacco Use Types Packs/Day Years Used Date Smoking Tobacco: Never Assessed Comments Unknown Sex and Gender Information Value Date Recorded Sex Assigned at Not on file Legal Sex Female 9:15 PM TRANSPORTATION DEPARTMENT SUPERVISOR Gender Identity Not on file Sexual Orientation Not on file documented as of this encounter Plan of Treatment Not on file documented as of this encounter Procedures Procedure Name Priority Date/Time Associated Diagnosis Comments URINALYSIS Nurse Collected Priority 02/14/2017 4:04 PM TRANSPORTATION DEPARTMENT SUPERVISOR documented in this encounter Results * URINALYSIS (02/14/2017 4:04 PM TRANSPORTATION DEPARTMENT SUPERVISOR) COLOR (U) LIGHT YELLOW 02/14/2017 4:18 PM TRANSPORTATION DEPARTMENT SUPERVISOR [facility] TRANSPARENCY CLEAR 02/14/2017 4:18 PM TRANSPORTATION DEPARTMENT SUPERVISOR [facility] SPECIFIC GRAVITY (U) 1.010 1.002 - 1.035 02/14/2017 4:18 PM TRANSPORTATION DEPARTMENT SUPERVISOR [facility] U PH 5.0 5 - 8 02/14/2017 4:18 PM TRANSPORTATION DEPARTMENT SUPERVISOR [facility] PROTEIN (U) NEGATIVE NEGATIVE 02/14/2017 4:18 PM [facility] URINE GLUCOSE NEGATIVE NEGATIVE MG/DL 02/14/2017 4:18 PM [facility] KETONES MG/DL (U) NEGATIVE NEGATIVE 02/14/2017 4:18 PM [facility] BILIRUBIN (U) NEGATIVE NEGATIVE 02/14/2017 4:18 PM [facility] BLOOD (U) NEGATIVE NEGATIVE 02/14/2017 4:18 PM [facility] NITRITES NEGATIVE NEGATIVE 02/14/2017 4:18 PM [facility] UROBILINOGEN NORMAL 0 - 1 EU/DL 02/14/2017 4:18 PM [facility] LEUKOCYTES (U) NEGATIVE NEGATIVE 02/14/2017 4:18 PM [facility] RBC/HPF <1 /HPF 02/14/2017 4:18 PM [facility] WBC/HPF <1 /HPF 02/14/2017 4:18 PM [facility] BACTERIA (U) NONE /HPF 02/14/2017 4:18 PM [facility] SQUAMOUS EPITHELIALS 4 02/14/2017 4:18 PM [facility] URINE SPECIMEN / Unknown 02/14/2017 4:04 PM TRANSPORTATION DEPARTMENT SUPERVISOR 02/14/2017 4:11 PM TRANSPORTATION DEPARTMENT SUPERVISOR us Generic Conversion Md [facility] URINE ORDERABLES Final Result [facility] [address] [place] [address], [id number] documented in this encounter Visit Diagnoses Not on filedocumented in this encounter
--- OUTSIDE RECORDS SUMMARY | 2024-03-20 11:58 | XMS_ITS | Encounter Summary ---
Author Organization [facility] Address [address] [place] [address]. [place], [place] [address] [place] [address] Care Team Providers Care Maintenance Apprentice Name Role Phone Unavailable Primary Care Provider Unavailabl e Encounter Details Date Type Department Care Team (Late st Contact Info) Description 02/24/2017 Emergency [place] [facility] [address] [facility] [place] [address] Abdelrahman Renner MD [address] [place] [address] Social History Tobacco Use Types Packs/Day Years Used Date Smoking Tobacco: Never Assessed Comments Unknown Sex and Gender Information Value Date Recorded Sex Assigned at Not on file Legal Sex Female 9:15 PM ENROLLER Gender Identity Not on file Sexual Orientation Not on file documented as of this encounter Plan of Treatment Not on file documented as of this encounter Visit Diagnoses Diagnosis Abdominal pain Abdominal pain, unspecified site documented in this encounter
--- OUTSIDE RECORDS SUMMARY | 2024-03-20 11:58 | XMS_ITS | Encounter Summary ---
Author Organization [facility] Address [address] [place] [address]. [place] [address] [place] [address] Care Team Providers Care Machine Overhauler Name Role Phone Unavailable Primary Care Provider Unavailabl e Encounter Details Date Type Department Care Team (Late st Contact Info) Description 02/14/2017 Orders [place] [address] , Generic Conversion, Social History Tobacco Use Types Packs/Day Years Used Date Smoking Tobacco: Never Assessed Comments Unknown Sex and Gender Information Value Date Recorded Sex Assigned at Not on file Legal Sex Female 9:15 PM DEBT RECOVERY OFFICER Gender Identity Not on file Sexual Orientation Not on file documented as of this encounter Plan of Treatment Not on file documented as of this encounter Procedures Procedure Name Priority Date/Time Associated Diagnosis Comments CBC W/DIFF AUTOMATED STAT 02/14/2017 5:10 PM DEBT RECOVERY OFFICER documented in this encounter Results * (ABNORMAL) CBC W/DIFF AUTOMATED (02/14/2017 5:10 PM DEBT RECOVERY OFFICER) WBC 5.3 4.0 - 10.8 x10'3/uL 02/14/2017 5:25 PM DEBT RECOVERY OFFICER [facility] RBC 3.31(L) 4.10 - 5.40 x10'6/uL 02/14/2017 5:25 PM DEBT RECOVERY OFFICER [facility] HGB 11.0(L) 12.0 - 16.0 G/DL 02/14/2017 5:25 PM DEBT RECOVERY OFFICER [facility] HCT 31.6(L) 36.0 - 47.0 % 02/14/2017 5:25 PM [facility] MCV 95.5 78.0 - 100.0 FL 02/14/2017 5:25 PM [facility] MCH 33.2(H) 27.0 - 31.0 PG 02/14/2017 5:25 PM [facility] MCHC 34.8 33.0 - 36.0 G/DL 02/14/2017 5:25 PM [facility] RDW 12.7 11.5 - 14.5 % 02/14/2017 5:25 PM [facility] PLT 70(L) 150 - 350 x10'3/uL 02/14/2017 5:25 PM [facility] MPV 11.9(H) 7.4 - 10.4 FL 02/14/2017 5:25 PM [facility] ABS. NEUTROPHILS TOTAL 2.97 1.60 - 8.30 x10'3/uL 02/14/2017 5:25 PM [facility] ABS. LYMPHOCYTES 1.14 0.80 - 4.70 x10'3/uL 02/14/2017 5:25 PM [facility] ABS. MONOCYTES 0.33 0.00 - 1.50 x10'3/uL 02/14/2017 5:25 PM [facility] ABS. EOSINOPHILS 0.80(H) 0.00 - 0.40 x10'3/uL 02/14/2017 5:25 PM [facility] ABS. BASOPHILS 0.01 0.00 - 0.20 x10'3/uL 02/14/2017 5:25 PM [facility] ABS. IMMATURE GRANULOCYTES 0.02 0.00 - 0.03 x10'3/uL 02/14/2017 5:25 PM [facility] ABS. NUCLEATED RBC'S 0.00 0.0 x10'3/uL 02/14/2017 5:25 PM [facility] PLASMA SPECIMEN / Unknown 02/14/2017 5:10 PM DEBT RECOVERY OFFICER 02/14/2017 5:12 PM DEBT RECOVERY OFFICER us Generic Conversion Md [facility] Final R esult Performing Organization Address City/State/[facility] Co de Phone Number [facility] [address] [place] [address], [id number] documented in this encounter Visit Diagnoses Not on filedocumented in this encounter
--- OUTSIDE RECORDS SUMMARY | 2024-03-20 11:58 | XMS_ITS | Encounter Summary ---
Author Organization [facility] Address [address] [place] [address]. [place] [address] [place] [address] Care Team Providers Care Supervisor Coin Machine Name Role Phone Unavailable Primary Care Provider Unavailabl e Encounter Details Date Type Department Care Team (Late st Contact Info) Description 02/15/2017 [place] [address] , Generic Conversion, Social History Tobacco Use Types Packs/Day Years Used Date Smoking Tobacco: Never Assessed Comments Unknown Sex and Gender Information Value Date Recorded Sex Assigned at Not on file Legal Sex Female 9:15 PM AUTOMOTIVE WORKER FOREMAN Gender Identity Not on file Sexual Orientation Not on file documented as of this encounter Plan of Treatment Not on file documented as of this encounter Procedures Procedure Name Priority Date/Time Associated Diagnosis Comments CBC W/DIFF AUTOMATED STAT 02/15/2017 3:02 PM AUTOMOTIVE WORKER FOREMAN documented in this encounter Results * (ABNORMAL) CBC W/DIFF AUTOMATED (02/15/2017 3:02 PM AUTOMOTIVE WORKER FOREMAN) WBC 5.1 4.0 - 10.8 x10'3/uL 02/15/2017 3:38 PM AUTOMOTIVE WORKER FOREMAN [facility] RBC 2.92(L) 4.10 - 5.40 x10'6/uL 02/15/2017 3:38 PM AUTOMOTIVE WORKER FOREMAN [facility] HGB 9.7(L) 12.0 - 16.0 G/DL 02/15/2017 3:38 PM AUTOMOTIVE WORKER FOREMAN [facility] HCT 27.7(L) 36.0 - 47.0 % 02/15/2017 3:38 PM [facility] MCV 94.9 78.0 - 100.0 FL 02/15/2017 3:38 PM [facility] MCH 33.2(H) 27.0 - 31.0 PG 02/15/2017 3:38 PM [facility] MCHC 35.0 33.0 - 36.0 G/DL 02/15/2017 3:38 PM [facility] RDW 12.8 11.5 - 14.5 % 02/15/2017 3:38 PM [facility] PLT 57(L) 150 - 350 x10'3/uL 02/15/2017 3:38 PM [facility] MPV 11.8(H) 7.4 - 10.4 FL 02/15/2017 3:38 PM [facility] ABS. NEUTROPHILS TOTAL 2.74 1.60 - 8.30 x10'3/uL 02/15/2017 3:38 PM [facility] ABS. LYMPHOCYTES 1.05 0.80 - 4.70 x10'3/uL 02/15/2017 3:38 PM [facility] ABS. MONOCYTES 0.45 0.00 - 1.50 x10'3/uL 02/15/2017 3:38 PM [facility] ABS. EOSINOPHILS 0.74(H) 0.00 - 0.40 x10'3/uL 02/15/2017 3:38 PM [facility] ABS. BASOPHILS 0.02 0.00 - 0.20 x10'3/uL 02/15/2017 3:38 PM [facility] ABS. IMMATURE GRANULOCYTES 0.06(H) 0.00 - 0.03 x10'3/uL 02/15/2017 3:38 PM [facility] ABS. NUCLEATED RBC'S 0.00 0.0 x10'3/uL 02/15/2017 3:38 PM [facility] PLASMA SPECIMEN / Unknown 02/15/2017 3:02 PM AUTOMOTIVE WORKER FOREMAN 02/15/2017 3:03 PM AUTOMOTIVE WORKER FOREMAN us Generic Conversion Md [facility] Final R esult [facility] [address] [place] [address], [id number] documented in this encounter Visit Diagnoses Not on filedocumented in this encounter
--- OUTSIDE RECORDS SUMMARY | 2024-03-20 11:58 | XMS_ITS | Encounter Summary ---
Author Organization [facility] Address [address] [place] [address]. [place], [place] [address] [place] [address] Care Team Providers Care Php Consultant Name Role Phone Ashley ZUNIGA MD, Hermes Perez Primary Care Provid er Encounter Details Date Type Department Care Team (Latest Contact Info) Description 02/15/2017 Abstract [facility] Social History Tobacco Use Types Packs/Day Years Used Date Smoking Tobacco: Never Assessed Comments Unknown Sex and Gender Information Value Date Recorded Sex Assigned at Not on file Legal Sex Female 9:15 PM PRINT WASHER Gender Identity Not on file Sexual Orientation Not on file documented as of this encounter Plan of Treatment Not on file documented as of this encounter Visit Diagnoses Not on filedocumented in this encounter Care Teams Php Consultant Relationship Specialty Start Date End Date Hermes Ramirez III, MD [address] [facility] [address] [place] [address] PCP - General FAMILY PRACTICE 06/20/17 documented as of this encounter
--- OUTSIDE RECORDS SUMMARY | 2024-03-20 11:58 | XMS_ITS | Encounter Summary ---
Author Organization [facility] Address [address] [place] [address]. [place] [address] [place] [address] Care Team Providers Care Importer Exporter Name Role Phone Unavailable Primary Care Provider Unavailabl e Encounter Details Date Type Department Care Team (Late st Contact Info) Description 02/14/2017 Orders Only [place] [address] , Generic Conversion, Social History Tobacco Use Types Packs/Day Years Used Date Smoking Tobacco: Never Assessed Comments Unknown Sex and Gender Information Value Date Recorded Sex Assigned at Not on file Legal Sex Female 9:15 PM SASH MAKER Gender Identity Not on file Sexual Orientation Not on file documented as of this encounter Plan of Treatment Not on file documented as of this encounter Procedures Procedure Name Priority Date/Time Associated Diagnosis Comments URINE BACTERIA CULTURE Nurse Collected Priority 02/14/2017 4:04 PM SASH MAKER documented in this encounter Results * CULTURE URINE (02/14/2017 4:04 PM SASH MAKER) SPEC DESCRIPTION URINE 02/14/2017 4:04 PM SASH MAKER [facility] SPECIAL REQUESTS NO SPECIAL REQUEST 02/14/2017 4:04 PM SASH MAKER [facility] CULTURE RESULT FEW CONTAMINANTS 01/19 11:12 PM SASH MAKER [facility] URINE SPECIMEN / Unknown 02/14/2017 4:04 PM SASH MAKER 02/14/2017 4:19 PM SASH MAKER Comment:URINE CLEAN CATCH us Generic Conversion Md [facility] - GENERAL ORDERABLES Final Result [facility] [address] [place] [address], [id number] documented in this encounter Visit Diagnoses Not on filedocumented in this encounter
--- OUTSIDE RECORDS SUMMARY | 2024-03-20 11:59 | XMS_ITS | Encounter Summary ---
Author Organization [facility] Address [address] [place] [address]. [place] [address] [place] [address] Care Team Providers Care Custom Motorcycle Painter Name Role Phone Unavailable Primary Care Provider Unavailabl e Encounter Details Date Type Department Care Team (Late st Contact Info) Description 01/04/2017 Emergency [facility] [address] [facility] [place] [address] Su Mays MD [address] [address] Social History Tobacco Use Types Packs/Day Years Used Date Smoking Tobacco: Never Assessed Comments Unknown Sex and Gender Information Value Date Recorded Sex Assigned at Not on file Legal Sex Female 9:15 PM WET FINISHER Gender Identity Not on file Sexual Orientation Not on file documented as of this encounter Plan of Treatment Not on file documented as of this encounter Visit Diagnoses Diagnosis Migraine without status migrainosus, not intractable Migraine, unspecified, without mention of intractable migraine without mention of status migrainosus documented in this encounter
--- OUTSIDE RECORDS SUMMARY | 2024-03-20 11:59 | XMS_ITS | Encounter Summary ---
Author Organization [facility] Address [address] [place] [address]. [place] [address] [place] [address] Care Team Providers Care Dark Room Attendant Name Role Phone Unavailable Primary Care Provider Unavailabl e Encounter Details Date Type Department Care Team (Late st Contact Info) Description 12/27/2016 Orders Only [place] [address] , Generic Conversion, Social History Tobacco Use Types Packs/Day Years Used Date Smoking Tobacco: Never Assessed Comments Unknown Sex and Gender Information Value Date Recorded Sex Assigned at Not on file Legal Sex Female 9:15 PM TECHNICAL SUPPORT DIRECTOR Gender Identity Not on file Sexual Orientation Not on file documented as of this encounter Plan of Treatment Not on file documented as of this encounter Procedures Procedure Name Priority Date/Time Associated Diagnosis Comments CBC W/DIFF AUTOMATED STAT 12/27/2016 1:05 PM CDT documented in this encounter Results * (ABNORMAL) CBC W/DIFF AUTOMATED (12/27/2016 1:05 PM CDT) WBC 3.2(L) 4.0 - 10.8 x10'3/uL 12/27/2016 12:14 PM CDT [facility] RBC 3.02(L) 4.10 - 5.40 x10'6/uL 12/27/2016 12:14 PM CDT [facility] HGB 10.1(L) 12.0 - 16.0 G/DL 12/27/2016 12:14 PM CDT [facility] HCT 28.8(L) 36.0 - 47.0 % 12/27/2016 12:14 PM CDT [facility] MCV 95.4 78.0 - 100.0 FL 12/27/2016 12:14 PM CDT [facility] MCH 33.4(H) 27.0 - 31.0 PG 12/27/2016 12:14 PM CDT [facility] MCHC 35.1 33.0 - 36.0 G/DL 12/27/2016 12:14 PM CDT [facility] RDW 13.3 11.5 - 14.5 % 12/27/2016 12:14 PM CDT [facility] PLT 55(L) 150 - 350 x10'3/uL 12/27/2016 12:14 PM CDT [facility] MPV 11.5(H) 7.4 - 10.4 FL 12/27/2016 12:14 PM CDT [facility] ABS. NEUTROPHILS TOTAL 1.99 1.60 - 8.30 x10'3/uL 12/27/2016 12:14 PM CDT [facility] ABS. LYMPHOCYTES 0.80 0.80 - 4.70 x10'3/uL 12/27/2016 12:14 PM CDT [facility] ABS. MONOCYTES 0.21 0.00 - 1.50 x10'3/uL 12/27/2016 12:14 PM CDT [facility] ABS. EOSINOPHILS 0.16 0.00 - 0.40 x10'3/uL 12/27/2016 12:14 PM CDT [facility] ABS. BASOPHILS 0.01 0.00 - 0.20 x10'3/uL 12/27/2016 12:14 PM CDT [facility] ABS. IMMATURE GRANULOCYTES 0.01 0.00 - 0.03 x10'3/uL 12/27/2016 12:14 PM CDT [facility] ABS. NUCLEATED RBC'S 0.00 0.0 x10'3/uL 12/27/2016 12:14 PM CDT [facility] PLASMA SPECIMEN / Unknown 12/27/2016 1:05 PM CDT 12/27/2016 12:06 PM CDT us Generic Conversion [facility] Final R esult [facility] [address] [place] [address], [id number] documented in this encounter Visit Diagnoses Not on filedocumented in this encounter
--- OUTSIDE RECORDS SUMMARY | 2024-03-20 11:59 | XMS_ITS | Encounter Summary ---
Author Organization [facility] Address [address] [place] [address]. [place] [address] [place] [address] Care Team Providers Care Wheelman Name Role Phone Unavailable Primary Care Provider Unavailabl e Encounter Details Date Type Department Care Team (Late st Contact Info) Description 12/27/2016 Orders Only [place] [address] , Generic Conversion, Social History Tobacco Use Types Packs/Day Years Used Date Smoking Tobacco: Never Assessed Comments Unknown Sex and Gender Information Value Date Recorded Sex Assigned at Not on file Legal Sex Female 9:15 PM CONTRACTING ANALYST Gender Identity Not on file Sexual Orientation Not on file documented as of this encounter Plan of Treatment Not on file documented as of this encounter Procedures Procedure Name Priority Date/Time Associated Diagnosis Comments HCG QUANT (SERUM)-CHORIONIC GONADOTROPIN STAT 12/27/2016 1:05 PM CDT documented in this encounter Results * BHCG QUANT (SERUM)-CHORIONIC GONADOTROPIN (12/27/2016 1:05 PM CDT) HCG QUANTITATIVE <1 MIU/ML 12/28/19 17 12:36 PM CDT [facility] Comment: <5 IS NEGATIVE 5-25 IS BORDERLINE >25 IS POSITIVE SERUM OR PLASMA SPECIMEN / Unknown 12/27/2016 1:05 PM CDT 12/27/2016 12:06 PM CDT us Generic Conversion [facility] Final R esult [facility] [address] [place] [address], [id number] documented in this encounter Visit Diagnoses Not on filedocumented in this encounter
--- OUTSIDE RECORDS SUMMARY | 2024-03-20 11:59 | XMS_ITS | Encounter Summary ---
Author Organization [facility] Address [address] [place] [address]. [place] [address] [place] [address] Care Team Providers Care Milk Delivery Driver Name Role Phone Unavailable Primary Care Provider Unavailabl e Encounter Details Date Type Department Care Team (Late st Contact Info) Description 12/11/2016 Orders [place] [address] , Generic Conversion, Social History Tobacco Use Types Packs/Day Years Used Date Smoking Tobacco: Never Assessed Comments Unknown Sex and Gender Information Value Date Recorded Sex Assigned at Not on file Legal Sex Female 9:15 PM CORK INSULATOR HELPER Gender Identity Not on file Sexual Orientation Not on file documented as of this encounter Plan of Treatment Not on file documented as of this encounter Procedures Procedure Name Priority Date/Time Associated Diagnosis Comments D-DIMER, QUANTITATIVE STAT 12/11/2016 3:44 PM CDT documented in this encounter Results * (ABNORMAL) D-DIMER, QUANTITATIVE (12/11/2016 3:44 PM CDT) D-DIMER 1.38(H) <0.50 MCG/ML FEU 12/11/2016 3:26 PM CDT [facility] EXCLUSION STATEMENT CUT-OFF FOR EXCLUSION OF VENOUS THROMBOEMBOLISM AND PULMONARY EMBOLISM IS LESS THAN 0.5 mcg/ml FEU. 12/11/2016 2:18 PM CDT [facility] PLASMA SPECIMEN / Unknown 12/11/2016 3:44 PM CDT 12/11/2016 2:45 PM CDT us Generic Conversion Md [facility] Final R esult Performing Organization Address City/State/[facility] Co de Phone Number [facility] [address] [place] [address], [id number] documented in this encounter Visit Diagnoses Not on filedocumented in this encounter
--- OUTSIDE RECORDS SUMMARY | 2024-03-20 11:59 | XMS_ITS | Encounter Summary ---
Author Organization [facility] Address [address] [place] [address]. [place] [address] [place] [address] Care Team Providers Care Dinkey Brakeman Name Role Phone Unavailable Primary Care Provider Unavailabl e Encounter Details Date Type Department Care Team (Late st Contact Info) Description 12/11/2016 Orders [place] [address] , Generic Conversion, Social History Tobacco Use Types Packs/Day Years Used Date Smoking Tobacco: Never Assessed Comments Unknown Sex and Gender Information Value Date Recorded Sex Assigned at Not on file Legal Sex Female 9:15 PM LEGAL STENOGRAPHER Gender Identity Not on file Sexual Orientation Not on file documented as of this encounter Plan of Treatment Not on file documented as of this encounter Procedures Procedure Name Priority Date/Time Associated Diagnosis Comments CBC W/DIFF AUTOMATED STAT 12/11/2016 5:41 PM CDT documented in this encounter Results * (ABNORMAL) CBC W/DIFF AUTOMATED (12/11/2016 5:41 PM CDT) WBC 3.6(L) 4.0 - 10.8 x10'3/uL 12/11/2016 5:16 PM CDT [facility] RBC 2.93(L) 4.10 - 5.40 x10'6/uL 12/11/2016 5:16 PM CDT [facility] HGB 9.8(L) 12.0 - 16.0 G/DL 12/11/2016 5:16 PM CDT [facility] HCT 28.0(L) 36.0 - 47.0 % 12/11/2016 5:16 PM CDT [facility] MCV 95.6 78.0 - 100.0 FL 12/11/2016 5:16 PM CDT [facility] MCH 33.4(H) 27.0 - 31.0 PG 12/11/2016 5:16 PM CDT [facility] MCHC 35.0 33.0 - 36.0 G/DL 12/11/2016 5:16 PM CDT [facility] RDW 13.2 11.5 - 14.5 % 12/11/2016 5:16 PM CDT [facility] PLT 69(L) 150 - 350 x10'3/uL 12/11/2016 5:16 PM CDT [facility] MPV 11.4(H) 7.4 - 10.4 FL 12/11/2016 5:16 PM CDT [facility] ABS. NEUTROPHILS TOTAL 1.95 1.60 - 8.30 x10'3/uL 12/11/2016 5:16 PM CDT [facility] ABS. LYMPHOCYTES 1.05 0.80 - 4.70 x10'3/uL 12/11/2016 5:16 PM CDT [facility] ABS. MONOCYTES 0.26 0.00 - 1.50 x10'3/uL 12/11/2016 5:16 PM CDT [facility] ABS. EOSINOPHILS 0.28 0.00 - 0.40 x10'3/uL 12/11/2016 5:16 PM CDT [facility] ABS. BASOPHILS 0.02 0.00 - 0.20 x10'3/uL 12/11/2016 5:16 PM CDT [facility] ABS. IMMATURE GRANULOCYTES 0.01 0.00 - 0.03 x10'3/uL 12/11/2016 5:16 PM CDT [facility] ABS. NUCLEATED RBC'S 0.00 0.0 x10'3/uL 12/11/2016 5:16 PM CDT [facility] PLASMA SPECIMEN / Unknown 12/11/2016 5:41 PM CDT 12/11/2016 4:42 PM CDT us Generic Conversion [facility] Final R esult [facility] [address] [place] [address], [id number] documented in this encounter Visit Diagnoses Not on filedocumented in this encounter
--- OUTSIDE RECORDS SUMMARY | 2024-03-20 11:59 | XMS_ITS | Encounter Summary ---
Author Organization [facility] Address [address] [place] [address]. 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 [place], [place] [address] [phone] [id number] documented in this encounter Visit Diagnoses Not on filedocumented in this encounter
--- OUTSIDE RECORDS SUMMARY | 2024-03-20 11:59 | XMS_ITS | Encounter Summary ---
Author Organization [facility] Address [address] [place] [address]. 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 Gender Identity Not on file Sexual Orientation Not on file documented as of this encounter Plan of Treatment Not on file documented as of this encounter Procedures Procedure Name Priority Date/Time Associated Diagnosis Comments URINALYSIS Nurse Collected Priority 12/08/2016 5:37 AM CDT documented in this encounter Results * URINALYSIS (12/08/2016 5:37 AM CDT) COLOR (U) STRAW 12/08/2016 4:57 AM CDT [facility] TRANSPARENCY CLEAR 12/08/2016 4:57 AM CDT [facility] SPECIFIC GRAVITY (U) 1.003 1.002 - 1.035 12/08/2016 4:57 AM CDT [facility] U PH 7.0 5 - 8 12/08/2016 4:57 AM CDT [facility] PROTEIN (U) NEGATIVE NEGATIVE 12/08/2016 4:57 AM CDT [facility] URINE GLUCOSE NEGATIVE NEGATIVE MG/DL 12/08/2016 4:57 AM CDT [facility] KETONES MG/DL (U) NEGATIVE NEGATIVE 12/08/2016 4:57 AM CDT [facility] BILIRUBIN (U) NEGATIVE NEGATIVE 12/08/2016 4:57 AM CDT [facility] BLOOD (U) NEGATIVE NEGATIVE 12/08/2016 4:57 AM CDT [facility] NITRITES NEGATIVE NEGATIVE 12/08/2016 4:57 AM CDT [facility] UROBILINOGEN NORMAL 0 - 1 EU/DL 12/08/2016 4:57 AM CDT [facility] LEUKOCYTES (U) NEGATIVE NEGATIVE 12/08/2016 4:57 AM CDT [facility] RBC/HPF NONE /HPF 12/08/2016 4:57 AM CDT [facility] WBC/HPF 1 /HPF 12/08/2016 4:57 AM CDT [facility] BACTERIA (U) NONE /HPF 12/08/2016 4:57 AM CDT [facility] SQUAMOUS EPITHELIALS <1 12/08/2016 4:57 AM CDT [facility] URINE SPECIMEN / Unknown 12/08/2016 5:37 AM CDT 12/08/2016 4:43 AM CDT us Generic Conversion Md [facility] URINE ORDERABLES Final Result [facility] [address] [place] [address], [id number] documented in this encounter Visit Diagnoses Not on filedocumented in this encounter
--- OUTSIDE RECORDS SUMMARY | 2024-03-20 11:59 | XMS_ITS | Encounter Summary ---
Author Organization [facility] Address [address] [place] [address]. [place] [address] [place] [address] Care Team Providers Care Materials Specialist Name Role Phone Unavailable Primary Care Provider Unavailabl e Encounter Details Date Type Department Care Team (Late st Contact Info) Description 12/27/2016 [place] [address] , Generic Conversion, Social History Tobacco Use Types Packs/Day Years Used Date Smoking Tobacco: Never Assessed Comments Unknown Sex and Gender Information Value Date Recorded Sex Assigned at Not on file Legal Sex Female 9:15 PM STERILE TECH Gender Identity Not on file Sexual Orientation Not on file documented as of this encounter Plan of Treatment Not on file documented as of this encounter Procedures Procedure Name Priority Date/Time Associated Diagnosis Comments AMYLASE STAT 12/27/2016 1:05 PM CDT documented in this encounter Results * AMYLASE (12/27/2016 1:05 PM CDT) AMYLASE S/P/B 63 25 - 125 UNITS/L 12/27/2016 12:39 PM CDT [facility] SERUM OR PLASMA SPECIMEN / Unknown 12/27/2016 1:05 PM CDT 12/27/2016 12:06 PM CDT us Generic Conversion Md [facility] Final R esult [facility] [address] [place], [place] [address] [phone] documented in this encounter Visit Diagnoses Not on filedocumented in this encounter
--- OUTSIDE RECORDS SUMMARY | 2024-03-20 11:59 | XMS_ITS | Encounter Summary ---
Author Organization [facility] Address [address] [place] [address]. [place] [address] [place] [address] Care Team Providers Care Electrician Constructor Supervisor Name Role Phone Ashley ZUNIGA MD, Hermes Perez Primary Care Provid er Encounter Details Date Type Department Care Team (Late st Contact Info) Description 12/08/2016 Abstract [facility] Gastroenterology - [place] [address], [id number] [place] [id number] Manpreet Stafford MBBS [address] [address] Social History Tobacco Use Types Packs/Day Years Used Date Smoking Tobacco: Never Assessed Comments Unknown Sex and Gender Information Value Date Recorded Sex Assigned at Not on file Legal Sex Female 9:15 PM AIR CHIEF MARSHAL Gender Identity Not on file Sexual Orientation Not on file documented as of this encounter Last Filed Vital Signs Vital Sign Reading Time Taken Comments Blood Pressure 130/70 12/08/2016 10:42 AM CDT Pulse 84 12/08/2016 10:42 AM CDT Temperature - - Respiratory Rate - - Oxygen Saturation - - Inhaled Oxygen Concentration - - Weight 64 kg (141 lb) 12/08/2016 10:42 AM CDT Height 157.5 cm (5' 2 ) 12/08/2016 10:42 AM CDT Body Mass Index 25.79 12/08/2016 10:42 AM CDT documented in this encounter Progress Notes * NANY Ramos - 12/08/2016 10:00 AM CDT Date: Dec 08, 2016 To Whom It May Concern: This is to advise that Elsa Browne has been under my care and may return to work on 12/12/2016 (Physician's Signature) Electronically signed by:Manpreet Stafford M.D. Dec 13 2016 11:22AM AIR CHIEF MARSHAL Co-author Electronically signed by:Manpreet Stafford M.D. Dec 13 2016 11:23AM AIR CHIEF MARSHAL Author * Generic Conversion MD Evie - 12/08/2016 10:00 AM CDT Message Recorded as Task Date: 12/26/2016 04:48 PM, Created By: Latoya Rincon Task Name: Call Back Assigned To: Latoya Rincon Regarding Patient: Elsa Browne, Status: Active Comment: Latoya Rincon - 26 Dec 2016 4:48 PM TASK CREATED Pt called this afternoon stating her lower abdomen is hurting. More of a burning sensation. States she drank a soda last evening & her stomach has hurt since then. She does not take the pantoprazole/omeprazole because it does not work. She took tums a couple of times during the night and again today, it has not been helpful. Please advise. # [phone] Manpreet Stafford - 27 Dec 2016 11:39 AM TASK EDITED Please get a KUB x-ray on her with comment on stool load. Latoya Rincon - 28 Dec 2016 9:32 AM TASK EDITED Pt chooses to have x-ray done at [facility]. Order faxed to [phone]. Pt notified she does not need an appt for this, just walk in. Pt verbalized understanding. Plan 1. XR Abdomen KUB and Upright; Status:Active; Requested for:28Dec2016; Perform:Other Radiology; Order Comments:Please note stool load. Fax results to Dr. Stafford [phone]. Thank You!; Due:27Jan2017; Last Updated By:Latoya Rincon; 12/28/2016 9:28:41 AM;Ordered; For:Abdominal pain; Ordered By:Manpreet Stafford; Signatures Electronically signed by : Latoya Rincon R.N.; Dec 28 2016 9:32AM AIR CHIEF MARSHAL (Author) * NANY Ramos - 12/08/2016 10:00 AM CDT Referred By / Reason Name: Reason: 3 month f/u Reason For Visit Chronic Recheck Visit History of Present Illness Ms. Browne is a 36-year-old female who comes in for a follow-up visit. She saw Dr. Crum recently for posthospital follow-up for pancreatitis and stomach ulcers. Patient has history of liver transplant for biliary atresia. She had this transplant done on the age of 12, this was done at [facility]. Her last visit to [facility] was four years ago. She states that she has been taking Prograf on a regular basis. Patient was noted to have elevated Prograf levels during her recent hospitalization with worsening kidney function. Patient?s medications were adjusted while she was in the hospital. She is feeling much better now. Patient states that her kidney function has improved significantly too. She got out of the hospital in September, and she was readmitted to the hospital recently in November. Patient states that she currently has an appointment to see the hepatology clinic at [facility] next week sometime. Patient had a lab work performed today which shows improvement in her hemoglobin to 8.4 and platelet count is up to 66. Her creatinine has improved to 2.1. Her liver enzymes are all within normal limits. I do not have the tacrolimus level on her currently. Patient seems to be doing fairly fine otherwise. She is being followed up by nephrology for her acute kidney injury and chronic kidney injury. She stopped drinking alcohol completely. She did have a bout of alcoholic pancreatitisin August of this year. The patient also had an EGD on 11/16/16 and was noted to have esophagitis, superficial gastric ulcers and duodenal ulcer. She is on PPI. Review of Systems Constitutional: no fever. ENT: no sore throat. Cardiovascular: no chest pain. Respiratory: no cough. Gastrointestinal: as noted in HPI. Hematologic and Lymphatic: no swollen glands. Neurological no headache. Endocrine no night sweats. Active Problems 1. Abdominal pain (789.00) (R10.9) [...] Transplant 2. History of Salpingectomy Family History Family History 1. Family history of malignant neoplasm (V16.9) (Z80.9) Social History ?? Current every day smoker (305.1) (F17.200) ?? Denies alcohol consumption (V49.89) (Z78.9) Current Meds 1. PriLOSEC 20 MG Oral Capsule Delayed Release; 1 capsule by mouth daily; Therapy: (Recorded:08Dec2016) to Recorded Dispense: 0 Days ; #: Sufficient Capsule Delayed Release; Refill: 0; BHAVANA = N; Record; Last Updated By: Jennifer Gordon; 12/08/2016 10:43:12 AM 2. Prograf 1 MG Oral Capsule; TAKE 2 CAPSULE Twice daily; Therapy: (Recorded:08Dec2016) to Recorded Dispense: 0 Days ; #: Sufficient Capsule; Refill: 0; BHAVANA = N; Record; Last Updated By: Jennifer Gordon; 12/08/2016 10:43:12 AM 3. Sodium Bicarbonate 650 MG Oral Tablet; TAKE 1 TABLET THREE TIMES A DAY AFTER MEALS; Therapy: [id number] to Recorded Rx By: MIGUEL CORONA; Dispense: 30 Days ; #:90 TABS; Refill: 0; BHAVANA = N; Record; Last Updated By:Jennifer Gordon; 12/08/2016 10:43:12 AM Allergies 1. Aspirin TABS Recorded By: Emily Pichardo; 05/19/2010 6:39:28 PM 2. Erythromycin Derivatives Recorded By: Emily Pichardo; 05/19/2010 6:39:28 PM Vitals Recorded: [id number] 10:42AM Heart Rate 84 Systolic 130 Diastolic 70 O2 Saturation 99 Height 5 ft 2 in Weight 141 lb BMI Calculated 25.79 BSA Calculated 1.65 Physical Exam Constitutional General appearance: No acute distress, well appearing and well nourished. Head and Face Head and face: Normal. Eyes Conjunctiva and lids: No swelling, erythema or discharge. No pallor and no icterus. Ears, Nose, Mouth, and Throat Oropharynx: Normal with no erythema, edema, exudate or lesions. Pulmonary Auscultation of lungs: Clear to auscultation. Cardiovascular Auscultation of heart: Normal rate and rhythm, normal S1 and S2, no murmurs. Abdomen Patient defers rectal exam. Abdomen: Non-tender, no masses. Genitourinary Patient defers pelvic exam. Lymphatic Palpation of lymph nodes in neck: No lymphadenopathy. Musculoskeletal Digits and nails: Normal without clubbing or cyanosis. Neurologic Cranial nerves: Cranial nerves II-XII intact. Cortical function: Normal mental status. Psychiatric Orientation to person, place, and time: Normal. Assessment 1. Transplanted liver (V42.7) (Z94.4) 2. Pancreatitis (577.0) (K85.90) 3. Gastric ulcer (531.90) (K25.9) Discussion/Summary Ms. Browne is a 36-year-old female here today: 1. Status post OLT for biliary atresia. She is about 24 years out of transplant. Currently, is on fairly big dose of tacrolimus. 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 Her last tacrolimus levels performed in the hospital was downto 5.0. Patient currently seems to be doing fairly well. She was advised to follow-up with her regular transplant brace end [facility] former so that they can monitor her Prograf levels. She was advised to bring the report from her transplant brace end [facility] former. 2. History of reflux esophagitis and EGD suggestive of gastric ulcers and duodenal ulcer. Currentlyon PPI. She was advised to continue PPI. We will follow her up in six months. She was advised to call me if she has any issues in between. 3. Acute kidney injury. She was advised to follow-up with her deburrer machine. Signatures Electronically signed by : Manpreet Stafford M.D.; Dec 13 2016 11:36AM AIR CHIEF MARSHAL (Author) * Lazara Lange Md, MD - 12/08/2016 10:00 AM CDT Message Recorded as Task Date: 12/27/2016 11:47 AM, Created By: Manpreet Stafford Task Name: Call Back Assigned To: Latoya Rincon Regarding Patient: Pavan Elsa A, Status: Active Comment: Manpreet Stafford - 27 Dec 2016 11:47 AM TASK CREATED Called the patient and discussed with her the symptoms. Patient not taking any PPI currently. She was advised to start taking the Protonix 40 mg po qd ( Please call in a script for this for 3 months). Advised to stop smoking. No melena. C/o head aches. Advised to call her regular doctor for the migraines. Latoya Rincon - 28 Dec 2016 9:11 AM TASK EDITED Script sent to pharmacy as directed. Signatures Electronically signed by : Latoya Rincon R.N.; Dec 28 2016 9:26AM AIR CHIEF MARSHAL (Author) documented in this encounter Miscellaneous Notes * Letter - Lazara Lange Md, MD - 12/08/2016 10:00 AM CDT 02/01/2017 Dear Ms. Browne, Upon reviewing records, we see that you are due and/or overdue for lab work or an ordered test. Please follow-up immediately to complete the order. If you have fulfilled the order at a facility outside of [facility], please bring a copy of theresults to the office at your earliest convenience. Should you have any questions, please contact the office at [phone]. Sincerely, Your Healthcare Team at [facility] Gastroenterology. Electronically signed by:Simone Foss Feb 01 2017 10:50AM AIR CHIEF MARSHAL documented in this encounter Plan of Treatment Not on file documented as of this encounter Visit Diagnoses Not on filedocumented in this encounter Care Teams Electrician Constructor Supervisor Relationship Specialty Start Date End Date Hermes Ramirez III, MD [address] [id number] PCP - General FAMILY PRACTICE 06/20/17 documented as of this encounter
--- OUTSIDE RECORDS SUMMARY | 2024-03-20 11:59 | XMS_ITS | Encounter Summary ---
Author Organization [facility] Address [address] [place] [address]. 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 SERUM OR PLASMA SPECIMEN / Unknown 12/27/2016 1:05 PM CDT 12/27/2016 12:06 PM CDT us Generic Conversion Md [facility] Final R esult [facility] [address] [place] [address], [id number] documented in this encounter Visit Diagnoses Not on filedocumented in this encounter
--- OUTSIDE RECORDS SUMMARY | 2024-03-20 11:59 | XMS_ITS | Encounter Summary ---
Author Organization [facility] Address [address] [place] [address]. 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
--- OUTSIDE RECORDS SUMMARY | 2024-03-20 11:59 | XMS_ITS | Encounter Summary ---
Author Organization [facility] Address [address] [place] [address]. 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 Gender Identity Not on file Sexual Orientation Not on file documented as of this encounter Plan of Treatment Not on file documented as of this encounter Procedures Procedure Name Priority Date/Time Associated Diagnosis Comments BASIC METABOLIC PANEL STAT 01/09/2017 4:32 PM CDT documented in this encounter Results * (ABNORMAL) BASIC METABOLIC PANEL (01/09/2017 4:32 PM CDT) SODIUM S/P/B 141 135 - 147 MMOL/L 01/09/2017 3:57 PM CDT [facility] POTASSIUM S/P/B 4.9 3.5 - 5.0 MMOL/L 01/09/2017 3:57 PM CDT [facility] CHLORIDE S/P/B 114(H) 98 - 107 MMOL/L 01/09/2017 3:57 PM CDT [facility] CALCIUM S/P/B 8.6 8.4 - 10.2 MG/DL 01/09/2017 3:57 PM CDT [facility] CO2 20.1(L) 22 - 29 MMOL/L 01/09/2017 3:57 PM CDT [facility] GLUCOSE 86 70 - 109 MG/DL 01/09/2017 3:57 PM CDT [facility] BUN 26(H) 7 - 19 MG/DL 01/09/2017 3:57 PM CDT [facility] CREATININE S/P/B 1.94(H) 0.60 - 1.10 MG/DL 01/09/2017 3:57 PM CDT [facility] OSMOLALITY (CALC) 285 01/09/2017 3:57 PM CDT [facility] ANION GAP 7 MMOL/L 01/09/2017 3:57 PM CDT [facility] PLASMA SPECIMEN / Unknown 01/09/2017 4:32 PM CDT 01/09/2017 3:33 PM CDT us Generic Conversion Md [facility] Final R esult [facility] [address] [place] [address], [id number] documented in this encounter Visit Diagnoses Not on filedocumented in this encounter
--- OUTSIDE RECORDS SUMMARY | 2024-03-20 11:59 | XMS_ITS | Encounter Summary ---
Author Organization [facility] Address [address] [place] [address]. 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 [address] [place] [address] PCP - General FAMILY PRACTICE 06/20/17 documented as of this encounter
--- OUTSIDE RECORDS SUMMARY | 2024-03-20 11:59 | XMS_ITS | Encounter Summary ---
Author Organization [facility] Address [address] [place] [address]. 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 SPECIAL REQUESTS NO SPECIAL REQUEST 12/27/2016 11:[address] [facility] CULTURE RESULT FEW CONTAMINANTS 12/18 8:[address] [facility] URINE SPECIMEN / Unknown 12/27/2016 12:52 PM CDT 12/27/2016 12:16 PM CDT Comment:URINE CLEAN CATCH us Generic Conversion Md [facility] - GENERAL ORDERABLES Final Result [facility] [address] [place] [address], [phone] documented in this encounter Visit Diagnoses Not on filedocumented in this encounter
--- OUTSIDE RECORDS SUMMARY | 2024-03-20 11:59 | XMS_ITS | Encounter Summary ---
Author Organization [facility] Address [address] [place] [address]. 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
--- OUTSIDE RECORDS SUMMARY | 2024-03-20 11:59 | XMS_ITS | Encounter Summary ---
Author Organization [facility] Address [address] [place] [address]. 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
--- OUTSIDE RECORDS SUMMARY | 2024-03-20 11:59 | XMS_ITS | Encounter Summary ---
Author Organization [facility] Address [address] [place] [address]. 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 Gender Identity Not on file Sexual Orientation Not on file documented as of this encounter Plan of Treatment Not on file documented as of this encounter Procedures Procedure Name Priority Date/Time Associated Diagnosis Comments URINALYSIS TIMED 12/27/2016 12:52 PM CDT documented in this encounter Results * URINALYSIS (12/27/2016 12:52 PM CDT) COLOR (U) YELLOW 12/27/2016 12:14 PM CDT [facility] TRANSPARENCY CLEAR 12/27/2016 12:14 PM CDT [facility] SPECIFIC GRAVITY (U) 1.011 1.002 - 1.035 12/27/2016 12:14 PM CDT [facility] U PH 7.0 5 - 8 12/27/2016 12:14 PM CDT [facility] PROTEIN (U) NEGATIVE NEGATIVE 12/27/2016 12:14 PM CDT [facility] URINE GLUCOSE NEGATIVE NEGATIVE MG/DL 12/27/2016 12:14 PM CDT [facility] KETONES MG/DL (U) NEGATIVE NEGATIVE 12/27/2016 12:14 PM CDT [facility] BILIRUBIN (U) NEGATIVE NEGATIVE 12/27/2016 12:14 PM CDT [facility] BLOOD (U) NEGATIVE NEGATIVE 12/27/2016 12:14 PM CDT [facility] NITRITES NEGATIVE NEGATIVE 12/27/2016 12:14 PM CDT [facility] UROBILINOGEN NORMAL 0 - 1 EU/DL 12/27/2016 12:14 PM CDT [facility] LEUKOCYTES (U) NEGATIVE NEGATIVE 12/27/2016 12:14 PM CDT [facility] RBC/HPF <1 /HPF 12/27/2016 12:14 PM CDT [facility] WBC/HPF 1 /HPF 12/27/2016 12:14 PM CDT [facility] BACTERIA (U) PRESENT /HPF 12/27/2016 12:14 PM CDT [facility] SQUAMOUS EPITHELIALS 4 12/27/2016 12:14 PM CDT [facility] URINE SPECIMEN / Unknown 12/27/2016 12:52 PM CDT 12/27/2016 12:04 PM CDT us Generic Conversion Md [facility] URINE ORDERABLES Final Result [facility] [address] [place] [address], [id number] documented in this encounter Visit Diagnoses Not on filedocumented in this encounter
--- OUTSIDE RECORDS SUMMARY | 2024-03-20 11:59 | XMS_ITS | Encounter Summary ---
Author Organization [facility] Address [address] [place] [address]. [place], [place] [address] [place] [address] Care Team Providers Care Client Support Manager Name Role Phone Unavailable Primary Care Provider Unavailabl e Encounter Details Date Type Department Care Team (Late st Contact Info) Description 01/09/2017 Emergency [facility] Emergency [address] [place] [address] Social History Tobacco Use Types Packs/Day Years Used Date Smoking Tobacco: Never Assessed Comments Unknown Sex and Gender Information Value Date Recorded Sex Assigned at Not on file Legal Sex Female 9:15 PM SIDEHAND Gender Identity Not on file Sexual Orientation Not on file documented as of this encounter Plan of Treatment Not on file documented as of this encounter Visit Diagnoses Diagnosis Diarrhea documented in this encounter
--- OUTSIDE RECORDS SUMMARY | 2024-03-20 11:59 | XMS_ITS | Encounter Summary ---
Author Organization [facility] Address [address] [place] [address]. 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
--- OUTSIDE RECORDS SUMMARY | 2024-03-20 11:59 | XMS_ITS | Encounter Summary ---
Author Organization [facility] Address [address] [place] [address]. 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 Gender Identity Not on file Sexual Orientation Not on file documented as of this encounter Plan of Treatment Not on file documented as of this encounter Procedures Procedure Name Priority Date/Time Associated Diagnosis Comments LACTIC ACID STAT 01/09/2017 4:32 PM CDT documented in this encounter Results * LACTIC ACID (01/09/2017 4:32 PM CDT) LACTIC ACID VENOUS 1.1 0.5 - 2.0 MMOL/L 01/09/2017 3:54 PM CDT [facility] PLASMA SPECIMEN / Unknown 01/09/2017 4:32 PM CDT 01/09/2017 3:33 PM CDT us Generic Conversion Md [facility] Final R esult [facility] [address] [place] [address], [place] [phone] [id number] documented in this encounter Visit Diagnoses Not on filedocumented in this encounter
--- OUTSIDE RECORDS SUMMARY | 2024-03-20 11:59 | XMS_ITS | Encounter Summary ---
Author Organization [facility] Address [address] [place] [address]. 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 Gender Identity Not on file Sexual Orientation Not on file documented as of this encounter Plan of Treatment Not on file documented as of this encounter Procedures Procedure Name Priority Date/Time Associated Diagnosis Comments COMPREHENSIVE METABOLIC PANEL STAT 12/27/2016 1:05 PM CDT documented in this encounter Results * (ABNORMAL) COMPREHENSIVE METABOLIC PANEL (12/27/2016 1:05 PM CDT) SODIUM S/P/B 140 135 - 147 MMOL/L 12/27/2016 12:39 PM CDT [facility] POTASSIUM S/P/B 4.0 3.5 - 5.0 MMOL/L 12/27/2016 12:39 PM CDT [facility] CHLORIDE S/P/B 110(H) 98 - 107 MMOL/L 12/27/2016 12:39 PM CDT [facility] CO2 21.5(L) 22 - 29 MMOL/L 12/27/2016 12:39 PM CDT [facility] GLUCOSE 138(H) 70 - 109 MG/DL 12/27/2016 12:39 PM T [facility] BUN 23(H) 7 - 19 MG/DL 12/27/2016 12:39 PM CDT [facility] CREATININE S/P/B 2.18(H) 0.60 - 1.10 MG/DL 12/27/2016 12:39 PM CDT [facility] CALCIUM S/P/B 9.8 8.4 - 10.2 MG/DL 12/27/2016 12:39 PM CDT [facility] BILIRUBIN TOTAL S/P/B 1.1 0.2 - 1.2 MG/DL 12/27/2016 12:39 PM CDT [facility] ALKALINE PHOSPHATASE S/P/B 218(H) 37 - 98 U/L 12/27/2016 12:39 PM CDT [facility] AST 25 5 - 35 U/L 12/27/2016 12:39 PM T [facility] ALT 13 0 - 55 U/L 12/27/2016 12:39 PM T [facility] TOTAL PROTEIN S/P/B 6.3 6.0 - 8.3 G/DL 12/27/2016 12:39 PM CDT [facility] ALBUMIN S/P/B 3.6 3.4 - 4.9 G/DL 12/27/2016 12:39 PM CDT [facility] ANION GAP 8.5 MMOL/L 12/27/2016 12:39 PM T [facility] OSMOLALITY (CALC) 285 MOSM/KG 12/27/2016 12:39 PM T [facility] EGFR NON-AFR. AMER. 26(L) >60 ML/MIN/1.7 3 M2 12/27/2016 12:39 PM CDT [facility] EGFR AFR. AMER. 31(L) >60 ML/MIN/1.7 3 M2 12/27/2016 12:39 PM CDT [facility] PLASMA SPECIMEN / Unknown 12/27/2016 1:05 PM CDT 12/27/2016 12:06 PM CDT us Generic Conversion Md [facility] Final R esult Performing Organization Address City/State/[facility] Co de Phone Number [facility] [address] [place] [address], [id number] documented in this encounter Visit Diagnoses Not on filedocumented in this encounter
--- OUTSIDE RECORDS SUMMARY | 2024-03-20 11:59 | XMS_ITS | Encounter Summary ---
Author Organization [facility] Address [address] [place] [address]. 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
--- OUTSIDE RECORDS SUMMARY | 2024-03-20 11:59 | XMS_ITS | Encounter Summary ---
Author Organization [facility] Address [address] [place] [address]. [place] [address] [place] [address] Care Team Providers Care Weekend Caregiver Name Role Phone Unavailable Primary Care Provider Unavailabl e Encounter Details Date Type Department Care Team (Late st Contact Info) Description 12/11/2016 Orders [place] [address] , Generic Conversion, Social History Tobacco Use Types Packs/Day Years Used Date Smoking Tobacco: Never Assessed Comments Unknown Sex and Gender Information Value Date Recorded Sex Assigned at Not on file Legal Sex Female 9:15 PM FOUR H AGENT Gender Identity Not on file Sexual Orientation Not on file documented as of this encounter Plan of Treatment Not on file documented as of this encounter Procedures Procedure Name Priority Date/Time Associated Diagnosis Comments URINALYSIS TIMED 12/11/2016 4:08 PM CDT documented in this encounter Results * (ABNORMAL) URINALYSIS (12/11/2016 4:08 PM CDT) COLOR (U) COLORLESS 12/11/2016 3:35 PM CDT [facility] TRANSPARENCY CLEAR 12/11/2016 3:35 PM CDT [facility] SPECIFIC GRAVITY (U) 1.001(L) 1.002 - 1.035 12/11/2016 3:35 PM CDT [facility] U PH 7.0 5 - 8 12/11/2016 3:35 PM CDT [facility] PROTEIN (U) NEGATIVE NEGATIVE 12/11/2016 3:35 PM CDT [facility] URINE GLUCOSE NEGATIVE NEGATIVE MG/DL 12/11/2016 3:35 PM CDT [facility] KETONES MG/DL (U) NEGATIVE NEGATIVE 12/11/2016 3:35 PM CDT [facility] BILIRUBIN (U) NEGATIVE NEGATIVE 12/11/2016 3:35 PM CDT [facility] BLOOD (U) NEGATIVE NEGATIVE 12/11/2016 3:35 PM CDT [facility] NITRITES NEGATIVE NEGATIVE 12/11/2016 3:35 PM CDT [facility] UROBILINOGEN NORMAL 0 - 1 EU/DL 12/11/2016 3:35 PM CDT [facility] LEUKOCYTES (U) NEGATIVE NEGATIVE 12/11/2016 3:35 PM CDT [facility] RBC/HPF NONE /HPF 12/11/2016 3:35 PM CDT [facility] WBC/HPF <1 /HPF 12/11/2016 3:35 PM CDT [facility] BACTERIA (U) PRESENT /HPF 12/11/2016 3:35 PM CDT [facility] SQUAMOUS EPITHELIALS <1 12/11/2016 3:35 PM CDT [facility] URINE SPECIMEN / Unknown 12/11/2016 4:08 PM CDT 12/11/2016 3:15 PM CDT us Generic Conversion Md [facility] URINE ORDERABLES Final Result [facility] [address] [place] [address], [id number] documented in this encounter Visit Diagnoses Not on filedocumented in this encounter
--- OUTSIDE RECORDS SUMMARY | 2024-03-20 11:59 | XMS_ITS | Encounter Summary ---
Author Organization [facility] Address [address] [place] [address]. [place] [address] [place] [address] Care Team Providers Care Staff Climate Scientist Name Role Phone Unavailable Primary Care Provider Unavailabl e Encounter Details Date Type Department Care Team (Late st Contact Info) Description 01/09/2017 Orders [place] [address] , Generic Conversion, Social History Tobacco Use Types Packs/Day Years Used Date Smoking Tobacco: Never Assessed Comments Unknown Sex and Gender Information Value Date Recorded Sex Assigned at Not on file Legal Sex Female 9:15 PM SHAPER HAND Gender Identity Not on file Sexual Orientation Not on file documented as of this encounter Plan of Treatment Not on file documented as of this encounter Procedures Procedure Name Priority Date/Time Associated Diagnosis Comments CBC W/DIFF AUTOMATED STAT 01/09/2017 4:31 PM CDT documented in this encounter Results * (ABNORMAL) CBC W/DIFF AUTOMATED (01/09/2017 4:31 PM CDT) WBC 4.5 4.0 - 10.8 x10'3/uL 01/09/2017 3:44 PM CDT [facility] RBC 2.94(L) 4.10 - 5.40 x10'6/uL 01/09/2017 3:44 PM CDT [facility] HGB 9.8(L) 12.0 - 16.0 G/DL 01/09/2017 3:44 PM CDT [facility] HCT 29.1(L) 36.0 - 47.0 % 01/09/2017 3:44 PM CDT [facility] MCV 99.0 78.0 - 100.0 FL 01/09/2017 3:44 PM CDT [facility] MCH 33.3(H) 27.0 - 31.0 PG 01/09/2017 3:44 PM CDT [facility] MCHC 33.7 33.0 - 36.0 G/DL 01/09/2017 3:44 PM CDT [facility] RDW 13.3 11.5 - 14.5 % 01/09/2017 3:44 PM CDT [facility] PLT 65(L) 150 - 350 x10'3/uL 01/09/2017 4:08 PM CDT [facility] MPV 10.7(H) 7.4 - 10.4 FL 01/09/2017 4:08 PM CDT [facility] ABS. NEUTROPHILS TOTAL 2.65 1.60 - 8.30 x10'3/uL 01/09/2017 3:45 PM CDT [facility] ABS. LYMPHOCYTES 1.03 0.80 - 4.70 x10'3/uL 01/09/2017 3:45 PM CDT [facility] ABS. MONOCYTES 0.34 0.00 - 1.50 x10'3/uL 01/09/2017 3:45 PM CDT [facility] ABS. EOSINOPHILS 0.42(H) 0.00 - 0.40 x10'3/uL 01/09/2017 3:45 PM CDT [facility] ABS. BASOPHILS 0.01 0.00 - 0.20 x10'3/uL 01/09/2017 3:45 PM CDT [facility] ABS. IMMATURE GRANULOCYTES 0.02 0.00 - 0.03 x10'3/uL 01/09/2017 3:45 PM CDT [facility] ABS. NUCLEATED RBC'S 0.00 0.0 x10'3/uL 01/09/2017 3:45 PM CDT [facility] PLASMA SPECIMEN / Unknown 01/09/2017 4:31 PM CDT 01/09/2017 3:32 PM CDT us Generic Conversion Md [facility] Final R esult [facility] [address] [place] [address], [id number] documented in this encounter Visit Diagnoses Not on filedocumented in this encounter
--- OUTSIDE RECORDS SUMMARY | 2024-03-20 11:59 | XMS_ITS | Encounter Summary ---
Author Organization [facility] Address [address] [place] [address]. [place] [address] [place] [address] Care Team Providers Care Transportation Planning Technician Name Role Phone Ashley ZUNIGA MD, Hermes Perez Primary Care Provid er Encounter Details Date Type Department Care Team (Late st Contact Info) Description 01/02/2017 Abstract [facility] [address] [facility] [place] [address] Ziyad Hu MD [address] [place] [id number] Social History Tobacco Use Types Packs/Day Years Used Date Smoking Tobacco: Never Assessed Comments Unknown Sex and Gender Information Value Date Recorded Sex Assigned at Not on file Legal Sex Female 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
--- OUTSIDE RECORDS SUMMARY | 2024-03-20 11:59 | XMS_ITS | Encounter Summary ---
Author Organization [facility] Address [address] [place] [address]. 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 Gender Identity Not on file Sexual Orientation Not on file documented as of this encounter Plan of Treatment Not on file documented as of this encounter Procedures Procedure Name Priority Date/Time Associated Diagnosis Comments LIPASE STAT 01/09/2017 4:32 PM CDT documented in this encounter Results * LIPASE (01/09/2017 4:32 PM CDT) LIPASE 14 8 - 78 UNITS/L 01/09/2017 3:58 PM CDT [facility] SERUM OR PLASMA SPECIMEN / Unknown 01/09/2017 4:32 PM CDT 01/09/2017 3:33 PM CDT us Generic Conversion Md [facility] Final R esult [facility] [address] [place] [address], [id number] documented in this encounter Visit Diagnoses Not on filedocumented in this encounter
--- OUTSIDE RECORDS SUMMARY | 2024-03-20 11:59 | XMS_ITS | Encounter Summary ---
Author Organization [facility] Address [address] [place] [address]. 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 Gender Identity Not on file Sexual Orientation Not on file documented as of this encounter Last Filed Vital Signs Vital Sign Reading Time Taken Comments Blood Pressure 118/70 12/19/2016 3:50 PM CDT Pulse 64 12/19/2016 3:50 PM CDT Temperature - - Respiratory Rate - - Oxygen Saturation - - Inhaled Oxygen Concentration - - Weight 64.9 kg (143 lb) 12/19/2016 3:50 PM CDT Height 157.5 cm (5' 2 ) 12/19/2016 3:50 PM CDT Body Mass Index 26.16 12/19/2016 3:50 PM CDT documented in this encounter Plan of Treatment Not on file documented as of this encounter Visit Diagnoses Not on filedocumented in this encounter Care Teams Manager Demand Relationship Specialty Start Date End Date Hermes Ramirez III, MD [address] [facility] [address] [place] [address] PCP - General FAMILY PRACTICE 06/20/17 documented as of this encounter
--- OUTSIDE RECORDS SUMMARY | 2024-03-20 12:00 | XMS_ITS | Encounter Summary ---
Author Organization [facility] Address [address] [place] [address]. [place] [address] [place] [address] Care Team Providers Care Boxing Inspector Name Role Phone Unavailable Primary Care Provider Unavailabl e Encounter Details Date Type Department Care Team (Late st Contact Info) Description 12/08/2016 Orders [place] [address] , Generic Conversion, Social History Tobacco Use Types Packs/Day Years Used Date Smoking Tobacco: Never Assessed Comments Unknown Sex and Gender Information Value Date Recorded Sex Assigned at Not on file Legal Sex Female 9:15 PM MANAGEMENT INTERNSHIP Gender Identity Not on file Sexual Orientation Not on file documented as of this encounter Plan of Treatment Not on file documented as of this encounter Procedures Procedure Name Priority Date/Time Associated Diagnosis Comments COMPREHENSIVE METABOLIC PANEL STAT 12/08/2016 4:32 AM CDT documented in this encounter Results * (ABNORMAL) COMPREHENSIVE METABOLIC PANEL (12/08/2016 4:32 AM CDT) SODIUM S/P/B 138 135 - 147 MMOL/L 12/08/2016 3:55 AM CDT [facility] POTASSIUM S/P/B 3.9 3.5 - 5.0 MMOL/L 12/08/2016 3:55 AM CDT [facility] CHLORIDE S/P/B 107 98 - 107 MMOL/L 12/08/2016 3:55 AM CDT [facility] CO2 23.5 22 - 29 MMOL/L 12/08/2016 3:55 AM CDT [facility] GLUCOSE 94 70 - 109 MG/DL 12/08/2016 3:55 AM T [facility] BUN 25(H) 7 - 19 MG/DL 12/08/2016 3:55 AM T [facility] CREATININE S/P/B 2.15(H) 0.60 - 1.10 MG/DL 12/08/2016 3:55 AM CDT [facility] CALCIUM S/P/B 8.8 8.4 - 10.2 MG/DL 12/08/2016 3:55 AM T [facility] BILIRUBIN TOTAL S/P/B 0.6 0.2 - 1.2 MG/DL 12/08/2016 3:55 AM T [facility] ALKALINE PHOSPHATASE S/P/B 268(H) 37 - 98 U/L 12/08/2016 3:55 AM T [facility] AST 25 5 - 35 U/L 12/08/2016 3:55 AM T [facility] ALT 17 0 - 55 U/L 12/08/2016 3:55 AM [facility] TOTAL PROTEIN S/P/B 5.8(L) 6.0 - 8.3 G/DL 12/08/2016 3:55 AM [facility] ALBUMIN S/P/B 3.3(L) 3.4 - 4.9 G/DL 12/08/2016 3:55 AM T [facility] ANION GAP 7.5 MMOL/L 12/08/2016 3:55 AM T [facility] OSMOLALITY (CALC) 280 MOSM/KG 12/08/2016 3:55 AM T [facility] EGFR NON-AFR. AMER. 26(L) >60 ML/MIN/1.7 3 M2 12/08/2016 3:55 AM T [facility] EGFR AFR. AMER. 32(L) >60 ML/MIN/1.7 3 M2 12/08/2016 3:55 AM CDT [facility] PLASMA SPECIMEN / Unknown 12/08/2016 4:32 AM CDT 12/08/2016 3:34 AM CDT us Generic Conversion Md [facility] Final R esult Performing Organization Address City/State/[facility] Co de Phone Number [facility] [address] [place] [address], [id number] documented in this encounter Visit Diagnoses Not on filedocumented in this encounter
--- OUTSIDE RECORDS SUMMARY | 2024-03-20 12:00 | XMS_ITS | Encounter Summary ---
Author Organization [facility] Address [address] [place] [address]. 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 EXCLUSION STATEMENT CUT-OFF FOR EXCLUSION OF VENOUS THROMBOEMBOLISM AND PULMONARY EMBOLISM IS LESS THAN 0.5 mcg/ml FEU. 12/08/2016 3:[address] [facility] PLASMA SPECIMEN / Unknown 12/08/2016 4:32 AM CDT 12/08/2016 3:34 AM CDT us Generic Conversion Md [facility] Final R esult Performing Organization Address City/State/[place] Co de Phone Number [facility] [address] [place] [address], [id number] documented in this encounter Visit Diagnoses Not on filedocumented in this encounter
--- OUTSIDE RECORDS SUMMARY | 2024-03-20 12:00 | XMS_ITS | Encounter Summary ---
Author Organization [facility] Address [address] [place] [address]. 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 Gender Identity Not on file Sexual Orientation Not on file documented as of this encounter Plan of Treatment Not on file documented as of this encounter Procedures Procedure Name Priority Date/Time Associated Diagnosis Comments COMPREHENSIVE METABOLIC PANEL Routine 12/01/2016 6:22 AM CDT documented in this encounter Results * (ABNORMAL) COMPREHENSIVE METABOLIC PANEL (12/01/2016 6:22 AM CDT) SODIUM S/P/B 137 135 - 147 MMOL/L 12/01/2016 6:07 AM CDT [facility] POTASSIUM S/P/B 4.6 3.5 - 5.0 MMOL/L 12/01/2016 6:07 AM CDT [facility] CHLORIDE S/P/B 116(H) 98 - 107 MMOL/L 12/01/2016 6:07 AM CDT [facility] CO2 16.1(L) 22 - 29 MMOL/L 12/01/2016 6:07 AM [facility] GLUCOSE 82 70 - 109 MG/DL 12/01/2016 6:07 AM [facility] BUN 46(H) 7 - 19 MG/DL 12/01/2016 6:07 AM [facility] CREATININE S/P/B 2.67(H) 0.60 - 1.10 MG/DL 12/01/2016 6:07 AM [facility] CALCIUM S/P/B 8.1(L) 8.4 - 10.2 MG/DL 12/01/2016 6:07 AM [facility] BILIRUBIN TOTAL S/P/B 0.5 0.2 - 1.2 MG/DL 12/01/2016 6:07 AM [facility] ALKALINE PHOSPHATASE S/P/B 212(H) 37 - 98 U/L 12/01/2016 6:07 AM [facility] AST 37(H) 5 - 35 U/L 12/01/2016 6:07 AM [facility] ALT 21 0 - 55 U/L 12/01/2016 6:07 AM [facility] TOTAL PROTEIN S/P/B 5.1(L) 6.0 - 8.3 G/DL 12/01/2016 6:07 AM [facility] ALBUMIN S/P/B 2.9(L) 3.4 - 4.9 G/DL 12/01/2016 6:07 AM [facility] ANION GAP 4.9 MMOL/L 12/01/2016 6:07 AM [facility] OSMOLALITY (CALC) 285 MOSM/KG 12/01/2016 6:07 AM [facility] EGFR NON-AFR. AMER. 20(L) >60 ML/MIN/1.7 3 M2 12/01/2016 6:07 AM [facility] EGFR AFR. AMER. 25(L) >60 ML/MIN/1.7 3 M2 12/01/2016 6:07 AM CDT [facility] PLASMA SPECIMEN / Unknown 12/01/2016 6:22 AM CDT 12/01/2016 5:30 AM CDT us Generic Conversion Md [facility] Final R esult [facility] [address] [place] [address], [place] [phone] [id number] documented in this encounter Visit Diagnoses Not on filedocumented in this encounter
--- OUTSIDE RECORDS SUMMARY | 2024-03-20 12:00 | XMS_ITS | Encounter Summary ---
Author Organization [facility] Address [address] [place] [address]. 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
--- OUTSIDE RECORDS SUMMARY | 2024-03-20 12:00 | XMS_ITS | Encounter Summary ---
Author Organization [facility] Address [address] [place] [address]. 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
--- OUTSIDE RECORDS SUMMARY | 2024-03-20 12:00 | XMS_ITS | Encounter Summary ---
Author Organization [facility] Address [address] [place] [address]. 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 [place], [place] ?? Department of Radiology ? MISHA JACKSON Ordering MD: MIGUEL CORONA MD ?? Acct: [id number] ?? : 1980 Pt Type: ADM IN ?? Sex: F Ord Site: MAIN ? Study Date Accession # Procedure Code Procedure ?? 11/30/[id number] DUPVENEXTR US Duplex Venous Ext Rt ? Signed ? EXAM: ULTRASOUND VENOUS DOPPLER RIGHT UPPER EXTREMITY ? CLINICAL STATEMENT: ? Right upper extremity for swelling to rule out DVT ? COMPARISON: None. ? FINDINGS: ?? The deep veins of the right lower extremity including the internal jugular vein, subclavian ?? vein, axillary vein, brachial vein, radial vein and ulnar vein are normal in chambers scale ?? appearance with preserved compressibility, color Doppler flow, and augmentation. No DVT is ?? identified. ? The superficial veins including the cephalic vein and basilic vein are patent with normal ?? compressibility ? IMPRESSION: ?? No DVT of the right upper extremity ? Electronically Signed By: BALDEV STEWART MD 11/30/161927 ? Dictated On: 11/30/161926 ?? Interpreted By: BALDEV STEWART MD ?? Transcribed On: 11/30/161926 - INFCE ? CC: ? MIGUEL CORONA MD Procedure Note Lazara Mendoza MD - 01/11/2018 [place], [place] Department of Radiology MISHA JACKSON Ordering MD: MIGUEL CORONA MD Acct: [id number] : 1980 Pt Type: ADM IN Sex: F Ord Site: MAIN Study Date Accession # Procedure Code Procedure 11/30/[id number] DUPVENEXTR US Duplex Venous Ext Rt Signed EXAM: ULTRASOUND VENOUS DOPPLER RIGHT UPPER EXTREMITY CLINICAL STATEMENT: Right upper extremity for swelling to rule outDVT COMPARISON: None. FINDINGS: The deep veins of the right lower extremity including the internaljugular vein, subclavian vein, axillary vein, brachial vein, radial vein and ulnar vein are normalin chambers scale appearance with preserved compressibility, color Doppler flow, andaugmentation. No DVT is identified. The superficial veins including the cephalic vein and basilic vein arepatent with normal compressibility IMPRESSION: No DVT of the right upper extremity Electronically Signed By: BALDEV STEWART MD 11/30/161927 Dictated On: 11/30/161926 Interpreted By: BALDEV STEWART MD Transcribed On: 11/30/161926 - INFCE CC: MIGUEL CORONA MD us Generic Conversion Md [facility] SC[facility] Final R esult documented in this encounter Visit Diagnoses Not on filedocumented in this encounter Care Teams Liberal Arts Dean Relationship Specialty Start Date End Date Hermes Ramirez III, MD [address] [place] [address] PCP - General FAMILY PRACTICE 06/20/17 documented as of this encounter
--- OUTSIDE RECORDS SUMMARY | 2024-03-20 12:00 | XMS_ITS | Encounter Summary ---
Author Organization [facility] Address [address] [place] [address]. 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 Gender Identity Not on file Sexual Orientation Not on file documented as of this encounter Plan of Treatment Not on file documented as of this encounter Procedures Procedure Name Priority Date/Time Associated Diagnosis Comments TRIGLYCERIDES TIMED 12/01/2016 6:23 AM CDT documented in this encounter Results * TRIGLYCERIDES (12/01/2016 6:23 AM CDT) TRIGLYCERIDES 95 0 - 149 MG/DL 12/01/2016 6:05 AM CDT [facility] Comment:<150 NORMAL SERUM OR PLASMA SPECIMEN / Unknown 12/01/2016 6:23 AM CDT 12/01/2016 5:30 AM CDT us Generic Conversion Md [facility] Final R esult [facility] [address] [place], [place] [address] [phone] documented in this encounter Visit Diagnoses Not on filedocumented in this encounter
--- OUTSIDE RECORDS SUMMARY | 2024-03-20 12:00 | XMS_ITS | Encounter Summary ---
Author Organization [facility] Address [address] [place] [address]. 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 Gender Identity Not on file Sexual Orientation Not on file documented as of this encounter Plan of Treatment Not on file documented as of this encounter Procedures Procedure Name Priority Date/Time Associated Diagnosis Comments CBC W/DIFF AUTOMATED STAT 12/08/2016 4:32 AM CDT documented in this encounter Results * (ABNORMAL) CBC W/DIFF AUTOMATED (12/08/2016 4:32 AM CDT) WBC 3.7(L) 4.0 - 10.8 x10'3/uL 12/08/2016 3:42 AM CDT [facility] RBC 2.57(L) 4.10 - 5.40 x10'6/uL 12/08/2016 3:42 AM CDT [facility] HGB 8.6(L) 12.0 - 16.0 G/DL 12/08/2016 3:42 AM CDT [facility] HCT 24.4(L) 36.0 - 47.0 % 12/08/2016 3:42 AM CDT [facility] MCV 94.9 78.0 - 100.0 FL 12/08/2016 3:42 AM CDT [facility] MCH 33.5(H) 27.0 - 31.0 PG 12/08/2016 3:42 AM CDT [facility] MCHC 35.2 33.0 - 36.0 G/DL 12/08/2016 3:42 AM CDT [facility] RDW 12.9 11.5 - 14.5 % 12/08/2016 3:42 AM CDT [facility] PLT 69(L) 150 - 350 x10'3/uL 12/08/2016 4:18 AM CDT [facility] MPV 10.7(H) 7.4 - 10.4 FL 12/08/2016 4:18 AM CDT [facility] ABS. NEUTROPHILS TOTAL 2.04 1.60 - 8.30 x10'3/uL 12/08/2016 3:42 AM CDT [facility] ABS. LYMPHOCYTES 1.07 0.80 - 4.70 x10'3/uL 12/08/2016 3:42 AM CDT [facility] ABS. MONOCYTES 0.32 0.00 - 1.50 x10'3/uL 12/08/2016 3:42 AM CDT [facility] ABS. EOSINOPHILS 0.24 0.00 - 0.40 x10'3/uL 12/08/2016 3:42 AM CDT [facility] ABS. BASOPHILS 0.01 0.00 - 0.20 x10'3/uL 12/08/2016 3:42 AM CDT [facility] ABS. IMMATURE GRANULOCYTES 0.01 0.00 - 0.03 x10'3/uL 12/08/2016 3:42 AM CDT [facility] ABS. NUCLEATED RBC'S 0.00 0.0 x10'3/uL 12/08/2016 3:42 AM CDT [facility] PLASMA SPECIMEN / Unknown 12/08/2016 4:32 AM CDT 12/08/2016 3:34 AM CDT us Generic Conversion Md [facility] Final R esult Performing Organization Address City/State/[facility] Co de Phone Number [facility] [address] [place] [address], [id number] documented in this encounter Visit Diagnoses Not on filedocumented in this encounter
--- OUTSIDE RECORDS SUMMARY | 2024-03-20 12:00 | XMS_ITS | Encounter Summary ---
Author Organization [facility] Address [address] [place] [address]. 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 Optimal blood drug levels are influenced by type of transplant, patient response, time post- transplant, co-administration of other drugs, and drug formulation. The following trough range is a suggested guideline: ? 5.0-20.0 mcg/L Test Performed by Viraj Greer, [employer] [facility], [address] [place], [place] Héctor Avalos M.D., Ph.D., Director of Laboratories , [facility] [id number] WHOLE BLOOD SPECIMEN / Unknown 11/30/2016 2:23 PM CDT 11/30/2016 1:24 PM CDT us Generic Conversion Md [facility] Final R esult [employer] [facility] [address] [place], [place] , [place] [phone] documented in this encounter Visit Diagnoses Not on filedocumented in this encounter
--- OUTSIDE RECORDS SUMMARY | 2024-03-20 12:00 | XMS_ITS | Encounter Summary ---
Author Organization [facility] Address [address] [place] [address]. 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 Optimal blood drug levels are influenced by type of transplant, patient response, time post- transplant, co-administration of other drugs, and drug formulation. The following trough range is a suggested guideline: ? 5.0-20.0 mcg/L Test Performed by Viraj Greer, [employer] [facility], [address] [place], [place] Héctor Avalos M.D., Ph.D., Director of Laboratories , [facility] [id number] WHOLE BLOOD SPECIMEN / Unknown 12/01/2016 6:23 AM CDT 12/01/2016 5:30 AM CDT us Generic Conversion Md [facility] Final R esult [employer] [facility] [address] [place], [place] , [place] [phone] documented in this encounter Visit Diagnoses Not on filedocumented in this encounter
--- OUTSIDE RECORDS SUMMARY | 2024-03-20 12:00 | XMS_ITS | Encounter Summary ---
Author Organization [facility] Address [address] [place] [address]. [place], [place] [address] [place] [address] Care Team Providers Care Extra Gang Supervisor Name Role Phone Unavailable Primary Care Provider Unavailabl e Encounter Details Date Type Department Care Team (Late st Contact Info) Description 12/08/2016 Emergency [facility] Emergency [address] [place] [address] Jimy Ramirez, APNP [address] [place] [address] Social History Tobacco Use Types Packs/Day Years Used Date Smoking Tobacco: Never Assessed Comments Unknown Sex and Gender Information Value Date Recorded Sex Assigned at Not on file Legal Sex Female 9:15 PM 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
--- OUTSIDE RECORDS SUMMARY | 2024-03-20 12:00 | XMS_ITS | Encounter Summary ---
Author Organization [facility] Address [address] [place] [address]. 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 [place], [place] [address] [phone] documented in this encounter Visit Diagnoses Not on filedocumented in this encounter
--- OUTSIDE RECORDS SUMMARY | 2024-03-20 12:00 | XMS_ITS | Encounter Summary ---
Author Organization [facility] Address [address] [place] [address]. 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 Gender Identity Not on file Sexual Orientation Not on file documented as of this encounter Plan of Treatment Not on file documented as of this encounter Procedures Procedure Name Priority Date/Time Associated Diagnosis Comments CBC W/DIFF AUTOMATED TIMED 12/01/2016 6:22 AM CDT documented in this encounter Results * (ABNORMAL) CBC W/DIFF AUTOMATED (12/01/2016 6:22 AM CDT) WBC 2.1(L) 4.0 - 10.8 x10'3/uL 12/01/2016 5:47 AM CDT [facility] RBC 2.24(L) 4.10 - 5.40 x10'6/uL 12/01/2016 5:47 AM CDT [facility] HGB 7.4(L) 12.0 - 16.0 G/DL 12/01/2016 5:47 AM CDT [facility] HCT 21.6(L) 36.0 - 47.0 % 12/01/2016 5:47 AM CDT [facility] MCV 96.4 78.0 - 100.0 FL 12/01/2016 5:47 AM CDT [facility] MCH 33.0(H) 27.0 - 31.0 PG 12/01/2016 5:47 AM CDT [facility] MCHC 34.3 33.0 - 36.0 G/DL 12/01/2016 5:47 AM CDT [facility] RDW 12.7 11.5 - 14.5 % 12/01/2016 5:47 AM CDT [facility] PLT 33(L) 150 - 350 x10'3/uL 12/01/2016 5:47 AM CDT [facility] MPV 11.5(H) 7.4 - 10.4 FL 12/01/2016 5:47 AM CDT [facility] ABS. NEUTROPHILS TOTAL 1.34(L) 1.60 - 8.30 x10'3/uL 12/01/2016 6:35 AM CDT [facility] ABS. NEUTROPHILS CALCULATED 1.32(L) 1.60 - 7.30 x10'3/uL 12/01/2016 6:35 AM CDT [facility] BANDS 0.02 0.00 - 1.00 x10'3/uL 12/01/2016 6:35 AM CDT [facility] ABS. LYMPHOCYTES 0.53(L) 0.80 - 4.70 x10'3/uL 12/01/2016 6:35 AM CDT [facility] ABS. MONOCYTES 0.15 0.00 - 1.50 x10'3/uL 12/01/2016 6:35 AM CDT [facility] ABS. EOSINOPHILS 0.08 0.00 - 0.40 x10'3/uL 12/01/2016 6:35 AM CDT [facility] ABS. BASOPHILS 0.00 0.00 - 0.20 x10'3/uL 12/01/2016 6:35 AM CDT [facility] ABS. NUCLEATED RBC'S 0.00 0.0 x10'3/uL 12/01/2016 6:35 AM CDT [facility] RBC MORPHOLOGY POLYCHROMASIA 017 6:35 AM CDT [facility] Comment: SLIGHT POIKILOCYTOSIS SLIGHT OVALOCYTES TEARDROP CELLS PLT MORPH. LOW 12/01/2016 6:35 AM CDT [facility] PLASMA SPECIMEN / Unknown 12/01/2016 6:22 AM CDT 12/01/2016 5:31 AM CDT us Generic Conversion [facility] Final R esult [facility] [address] [place] [address], [id number] documented in this encounter Visit Diagnoses Not on filedocumented in this encounter
--- OUTSIDE RECORDS SUMMARY | 2024-03-20 12:00 | XMS_ITS | Encounter Summary ---
Author Organization [facility] Address [address] [place] [address]. 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 [address] [place] [address] PCP - General FAMILY PRACTICE 06/20/17 documented as of this encounter
--- OUTSIDE RECORDS SUMMARY | 2024-03-20 12:00 | XMS_ITS | Encounter Summary ---
Author Organization [facility] Address [address] [place] [address]. 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 [address], [id number] documented in this encounter Visit Diagnoses Not on filedocumented in this encounter
--- OUTSIDE RECORDS SUMMARY | 2024-03-20 12:00 | XMS_ITS | Encounter Summary ---
Author Organization [facility] [place] Address [address] [place] [address]. 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 Gender Identity Not on file Sexual Orientation Not on file documented as of this encounter Plan of Treatment Not on file documented as of this encounter Procedures Procedure Name Priority Date/Time Associated Diagnosis Comments MISCELLANEOUS LAB TEST Routine 7 2:23 PM CDT documented in this encounter Results * MISCELLANEOUS LAB TEST (11/30/2016 2:23 PM CDT) TEST NAME: [id number] INTERLEUKEN 2 RECEPTOR 11/30/2016 1:48 PM CDT [facility] SPECIMEN TYPE SERUM FRZ 11/30/2016 1:48 PM CDT [facility] TEST RESULT: Flexitest 1 12/06/2016 4:34 AM CDT [facility] MICHAEL MOLINA Comment: Flexitest 1 TESTS [id number] [id number] Interleukin 2R ?869 ?? U/mL 406-1100 Units/mL can be converted to Milagros-2R pg/mL by dividing the reported value (U/mL) by 0.113. This test was performed using a kit that has not been cleared or approved by the FDA. The analytical performance characteristics of this test have been determined by [facility]. This test should not be used for diagnosis without confirmation by other medically established means. Test performed by: ?[facility] ?[address] ?[place] [address] ?Phone: ??[phone] Director: ??Zane Pickard M.D. Test Reported by Percy Coushatta, [employer] [facility], [address] [place], [place] Héctor Avalos M.D., Ph.D., Director of Laboratories , [facility] [id number] 11/30/2016 2:23 PM CDT 11/30/2016 1:47 PM CDT us Generic Conversion Md [facility] Final R esult [facility] [address] [place] [address], [place] [phone] [facility] [address] [place] [address], [place] [phone] [id number] documented in this encounter Visit Diagnoses Not on filedocumented in this encounter
--- OUTSIDE RECORDS SUMMARY | 2024-03-20 12:01 | XMS_ITS | Encounter Summary ---
Author Organization [facility] Address [address] [place] [address]. 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
--- OUTSIDE RECORDS SUMMARY | 2024-03-20 12:01 | XMS_ITS | Encounter Summary ---
Author Organization [facility] Address [address] [place] [address]. 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 Gender Identity Not on file Sexual Orientation Not on file documented as of this encounter Plan of Treatment Not on file documented as of this encounter Procedures Procedure Name Priority Date/Time Associated Diagnosis Comments MISCELLANEOUS LAB TEST Routine 7 2:23 PM CDT documented in this encounter Results * MISCELLANEOUS LAB TEST (11/30/2016 2:23 PM CDT) TEST NAME: [id number] NATURAL KILLER CELLS FUNCTIONAL 11/30/2016 1:39 PM CDT [facility] SPECIMEN TYPE WHOLE BLOOD AMB 11/30/2016 1:39 PM CDT [facility] TEST RESULT: Flexitest 1 12/04/2016 6:04 AM CDT [facility] MICHAEL MOLINA Comment: Flexitest 1 TESTS [id number] RANGE NK Cells, Functional ? 70 ?? LU30 This result was reviewed and interpreted by Aston Gamino M.D. Decreased Activity: ?<7 LU30 Normal Activity: ? 7-125 LU30 Increased Activity: ?>125 LU30 This assay evaluates function of live cells. Optimal results require timed collection and shipping under a Short Stability Protocol. Contact FrancoGonzález ([phone]) prior to scheduling the blood draw for instructions and draw kit including a preprinted [employer] bill for day of draw shipping overnight from the draw site direct to the performing laboratory. Alternative shipping methods may cause sample deterioration and cancellation. Natural killer (NK) cells, a component of the cell-mediated arm of the immune system, mediate destruction of some types of tumor cells and virus-infected cells. Decreased NK cytotoxicity is associated with impaired immune surveillance, and may explain a predisposition to malignancies and viral infections. Increased NK cytotoxicity has been observed in women with a history of recurrent spontaneous abortions. The LU30 value represents the number of lytic sets contained within a preparation of 10 million lymphocytes. One lytic set, in turn, is defined as the number of lymphocytes required to lyse 30% of the target cells in the NK assay. Thus, if the NK assay demonstrates that one lytic set is comprised of 500,000 lymphocytes, then a preparation of 10 million lymphocytes could contain 20 lytic sets (ie, LU30=20). This test was developed and its analytical performance characteristics have been determined by [facility]. It has not been cleared or approved by FDA. This assay has been validated pursuant to the CLIA regulations and is used for clinical purposes. Test performed by: ?[facility] ?[address] ?[place] [address] ?Phone: ??[phone] Director: ??Zane Pickard M.D. Test Reported by Viraj Greer, [facility], [address] [place], [place] Héctor Avalos M.D., Ph.D., Director of Laboratories , [facility] [id number] 11/30/2016 2:23 PM CDT 11/30/2016 1:24 PM CDT us Generic Conversion Md [facility] Final R esult [facility] [address] [place], [place] , [place] [phone] [facility] [address] [place] [address], [place] [phone] [id number] documented in this encounter Visit Diagnoses Not on filedocumented in this encounter
--- OUTSIDE RECORDS SUMMARY | 2024-03-20 12:01 | XMS_ITS | Encounter Summary ---
Author Organization [facility] Address [address] [place] [address]. 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 Gender Identity Not on file Sexual Orientation Not on file documented as of this encounter Plan of Treatment Not on file documented as of this encounter Procedures Procedure Name Priority Date/Time Associated Diagnosis Comments COMPREHENSIVE METABOLIC PANEL Routine 11/29/2016 3:32 AM CDT documented in this encounter Results * (ABNORMAL) COMPREHENSIVE METABOLIC PANEL (11/29/2016 3:32 AM CDT) SODIUM S/P/B 137 135 - 147 MMOL/L 11/29/2016 3:21 AM CDT [facility] POTASSIUM S/P/B 4.8 3.5 - 5.0 MMOL/L 11/29/2016 3:21 AM CDT [facility] CHLORIDE S/P/B 117(H) 98 - 107 MMOL/L 11/29/2016 3:21 AM CDT [facility] CO2 15.0(L) 22 - 29 MMOL/L 11/29/2016 3:21 AM T [facility] GLUCOSE 89 70 - 109 MG/DL 11/29/2016 3:21 AM [facility] BUN 50(H) 7 - 19 MG/DL 11/29/2016 3:21 AM [facility] CREATININE S/P/B 2.80(H) 0.60 - 1.10 MG/DL 11/29/2016 3:21 AM [facility] CALCIUM S/P/B 8.0(L) 8.4 - 10.2 MG/DL 11/29/2016 3:21 AM [facility] BILIRUBIN TOTAL S/P/B 0.5 0.2 - 1.2 MG/DL 11/29/2016 3:21 AM [facility] ALKALINE PHOSPHATASE S/P/B 178(H) 37 - 98 U/L 11/29/2016 3:21 AM [facility] AST 18 5 - 35 U/L 11/29/2016 3:21 AM [facility] ALT 10 0 - 55 U/L 11/29/2016 3:21 AM [facility] TOTAL PROTEIN S/P/B 5.6(L) 6.0 - 8.3 G/DL 11/29/2016 3:21 AM [facility] ALBUMIN S/P/B 3.2(L) 3.4 - 4.9 G/DL 11/29/2016 3:21 AM [facility] ANION GAP 5.0 MMOL/L 11/29/2016 3:21 AM [facility] OSMOLALITY (CALC) 287 MOSM/KG 11/29/2016 3:21 AM [facility] EGFR NON-AFR. AMER. 19(L) >60 ML/MIN/1.7 3 M2 11/29/2016 3:21 AM [facility] EGFR AFR. AMER. 23(L) >60 ML/MIN/1.7 3 M2 11/29/2016 3:21 AM CDT [facility] PLASMA SPECIMEN / Unknown 11/29/2016 3:32 AM CDT 11/29/2016 2:54 AM CDT us Generic Conversion Md [facility] Final R esult [facility] [address] [place] [address], [id number] documented in this encounter Visit Diagnoses Not on filedocumented in this encounter
--- OUTSIDE RECORDS SUMMARY | 2024-03-20 12:01 | XMS_ITS | Encounter Summary ---
Author Organization [facility] Address [address] [place] [address]. 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 Gender Identity Not on file Sexual Orientation Not on file documented as of this encounter Plan of Treatment Not on file documented as of this encounter Procedures Procedure Name Priority Date/Time Associated Diagnosis Comments COMPREHENSIVE METABOLIC PANEL Routine 11/30/2016 7:11 AM CDT documented in this encounter Results * (ABNORMAL) COMPREHENSIVE METABOLIC PANEL (11/30/2016 7:11 AM CDT) SODIUM S/P/B 139 135 - 147 MMOL/L 11/30/2016 6:57 AM CDT [facility] POTASSIUM S/P/B 4.7 3.5 - 5.0 MMOL/L 11/30/2016 6:57 AM CDT [facility] CHLORIDE S/P/B 120(H) 98 - 107 MMOL/L 11/30/2016 6:57 AM CDT [facility] CO2 14.1(L) 22 - 29 MMOL/L 11/30/2016 6:57 AM [facility] GLUCOSE 97 70 - 109 MG/DL 11/30/2016 6:57 AM [facility] BUN 50(H) 7 - 19 MG/DL 11/30/2016 6:57 AM [facility] CREATININE S/P/B 2.93(H) 0.60 - 1.10 MG/DL 11/30/2016 6:57 AM [facility] CALCIUM S/P/B 8.1(L) 8.4 - 10.2 MG/DL 11/30/2016 6:57 AM [facility] BILIRUBIN TOTAL S/P/B 0.4 0.2 - 1.2 MG/DL 11/30/2016 6:57 AM [facility] ALKALINE PHOSPHATASE S/P/B 172(H) 37 - 98 U/L 11/30/2016 6:57 AM [facility] AST 21 5 - 35 U/L 11/30/2016 6:57 AM [facility] ALT 11 0 - 55 U/L 11/30/2016 6:57 AM [facility] TOTAL PROTEIN S/P/B 5.0(L) 6.0 - 8.3 G/DL 11/30/2016 6:57 AM [facility] ALBUMIN S/P/B 2.8(L) 3.4 - 4.9 G/DL 11/30/2016 6:57 AM [facility] ANION GAP 4.9 MMOL/L 11/30/2016 6:57 AM [facility] OSMOLALITY (CALC) 291 MOSM/KG 11/30/2016 6:57 AM [facility] EGFR NON-AFR. AMER. 18(L) >60 ML/MIN/1.7 3 M2 11/30/2016 6:57 AM [facility] EGFR AFR. AMER. 22(L) >60 ML/MIN/1.7 3 M2 11/30/2016 6:57 AM CDT [facility] PLASMA SPECIMEN / Unknown 11/30/2016 7:11 AM CDT 11/30/2016 6:28 AM CDT us Generic Conversion [facility] Final R esult [facility] [address] [place] [address], [id number] documented in this encounter Visit Diagnoses Not on filedocumented in this encounter
--- OUTSIDE RECORDS SUMMARY | 2024-03-20 12:01 | XMS_ITS | Encounter Summary ---
Author Organization [facility] Address [address] [place] [address]. 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 Gender Identity Not on file Sexual Orientation Not on file documented as of this encounter Plan of Treatment Not on file documented as of this encounter Procedures Procedure Name Priority Date/Time Associated Diagnosis Comments IRON STUDIES Routine 11/30/2016 2:23 PM CDT documented in this encounter Results * (ABNORMAL) IRON STUDIES (11/30/2016 2:23 PM CDT) IRON 54 50 - 170 MCG/DL 11/30/2016 2:16 PM CDT [facility] IRON BINDING CAPACITY 180(L) 225 - 478 MCG/DL 11/30/2016 2:16 PM CDT [facility] IRON SATURATION 30 % 7 2:16 PM CDT [facility] TRANSFERRIN 144(L) 180 - 382 mg/dL 11/30/2016 2:16 PM CDT [facility] FERRITIN 97.4 11.00 - 204.00 NG/ML 11/30/2016 2:32 PM CDT [facility] 11/30/2016 2:23 PM CDT 11/30/2016 1:24 PM CDT Comment:PLASMA SPECIMEN ~ROB LLULAR BLOOD (SERUM OR PLASMA) SPECIMEN us Generic Conversion [facility] Final R esult [facility] [address] [place] [address], [id number] documented in this encounter Visit Diagnoses Not on filedocumented in this encounter
--- OUTSIDE RECORDS SUMMARY | 2024-03-20 12:01 | XMS_ITS | Encounter Summary ---
Author Organization [facility] Address [address] [place] [address]. 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 [address], [id number] documented in this encounter Visit Diagnoses Not on filedocumented in this encounter
--- OUTSIDE RECORDS SUMMARY | 2024-03-20 12:01 | XMS_ITS | Encounter Summary ---
Author Organization [facility] Address [address] [place] [address]. 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 Gender Identity Not on file Sexual Orientation Not on file documented as of this encounter Plan of Treatment Not on file documented as of this encounter Procedures Procedure Name Priority Date/Time Associated Diagnosis Comments CBC W/DIFF AUTOMATED Routine 11/29/2016 3:32 AM CDT documented in this encounter Results * (ABNORMAL) CBC W/DIFF AUTOMATED (11/29/2016 3:32 AM CDT) WBC 3.0(L) 4.0 - 10.8 x10'3/uL 11/29/2016 3:01 AM CDT [facility] RBC 2.63(L) 4.10 - 5.40 x10'6/uL 11/29/2016 3:01 AM CDT [facility] HGB 8.6(L) 12.0 - 16.0 G/DL 11/29/2016 3:01 AM CDT [facility] HCT 25.5(L) 36.0 - 47.0 % 11/29/2016 3:01 AM CDT [facility] MCV 97.0 78.0 - 100.0 FL 11/29/2016 3:01 AM CDT [facility] MCH 32.7(H) 27.0 - 31.0 PG 11/29/2016 3:01 AM CDT [facility] MCHC 33.7 33.0 - 36.0 G/DL 11/29/2016 3:01 AM CDT [facility] RDW 12.3 11.5 - 14.5 % 11/29/2016 3:01 AM CDT [facility] PLT 49(L) 150 - 350 x10'3/uL 11/29/2016 3:01 AM [facility] MPV 11.3(H) 7.4 - 10.4 FL 11/29/2016 3:01 AM T [facility] ABS. NEUTROPHILS TOTAL 1.90 1.60 - 8.30 x10'3/uL 11/29/2016 3:01 AM T [facility] ABS. LYMPHOCYTES 0.74(L) 0.80 - 4.70 x10'3/uL 11/29/2016 3:01 AM T [facility] ABS. MONOCYTES 0.21 0.00 - 1.50 x10'3/uL 11/29/2016 3:01 AM CDT [facility] ABS. EOSINOPHILS 0.16 0.00 - 0.40 x10'3/uL 11/29/2016 3:01 AM CDT [facility] ABS. BASOPHILS 0.00 0.00 - 0.20 x10'3/uL 11/29/2016 3:01 AM T [facility] ABS. IMMATURE GRANULOCYTES 0.01 0.00 - 0.03 x10'3/uL 11/29/2016 3:01 AM T [facility] ABS. NUCLEATED RBC'S 0.00 0.0 x10'3/uL 11/29/2016 3:01 AM CDT [facility] PLASMA SPECIMEN / Unknown 11/29/2016 3:32 AM CDT 11/29/2016 2:54 AM CDT us Generic Conversion Md [facility] Final R esult Performing Organization Address City/State/[facility] Co de Phone Number [facility] [address] [place] [address], [phone] documented in this encounter Visit Diagnoses Not on filedocumented in this encounter
--- OUTSIDE RECORDS SUMMARY | 2024-03-20 12:01 | XMS_ITS | Encounter Summary ---
Author Organization [facility] Address [address] [place] [address]. 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
--- OUTSIDE RECORDS SUMMARY | 2024-03-20 12:01 | XMS_ITS | Encounter Summary ---
Author Organization [facility] Address [address] [place] [address]. 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 11/30/2016 10:19 AM CDT [facility] FIBRINOGEN 257 190 - 464 MG/DL 11/30/2016 1:56 PM CDT [facility] PLT 37(L) 150 - 350 x10'3/uL 11/30/2016 2:03 PM CDT [facility] PROTIME 15.3(H) 11.6 - 14.3 SEC 11/30/2016 1:55 PM CDT [facility] INR 1.2(H) 0.9 - 1.1 11/30/2016 1:55 PM CDT [facility] PTT 36.1(H) 22.0 - 35.0 SEC 11/30/2016 1:56 PM CDT [facility] 11/30/2016 2:23 PM CDT 11/30/2016 1:24 PM CDT Comment:PLASMA SPECIMEN ~[facility] SMA SPECIMEN us Generic Conversion Md [facility] Final R esult [facility] [address] [place] [address], [phone] documented in this encounter Visit Diagnoses Not on filedocumented in this encounter
--- OUTSIDE RECORDS SUMMARY | 2024-03-20 12:01 | XMS_ITS | Encounter Summary ---
Author Organization [facility] Address [address] [place] [address]. 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 [address], [place] [phone] documented in this encounter Visit Diagnoses Not on filedocumented in this encounter
--- OUTSIDE RECORDS SUMMARY | 2024-03-20 12:01 | XMS_ITS | Encounter Summary ---
Author Organization [facility] Address [address] [place] [address]. 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 Gender Identity Not on file Sexual Orientation Not on file documented as of this encounter Plan of Treatment Not on file documented as of this encounter Procedures Procedure Name Priority Date/Time Associated Diagnosis Comments CBC W/DIFF AUTOMATED STAT 11/30/2016 9:59 AM CDT documented in this encounter Results * (ABNORMAL) CBC W/DIFF AUTOMATED (11/30/2016 9:59 AM CDT) WBC 3.1(L) 4.0 - 10.8 x10'3/uL 11/30/2016 9:55 AM CDT [facility] RBC 2.47(L) 4.10 - 5.40 x10'6/uL 11/30/2016 9:55 AM CDT [facility] HGB 8.3(L) 12.0 - 16.0 G/DL 11/30/2016 9:55 AM CDT [facility] HCT 23.6(L) 36.0 - 47.0 % 11/30/2016 9:55 AM CDT [facility] MCV 95.5 78.0 - 100.0 FL 11/30/2016 9:55 AM CDT [facility] MCH 33.6(H) 27.0 - 31.0 PG 11/30/2016 9:55 AM CDT [facility] MCHC 35.2 33.0 - 36.0 G/DL 11/30/2016 9:55 AM CDT [facility] RDW 12.6 11.5 - 14.5 % 11/30/2016 9:55 AM CDT [facility] PLT 42(L) 150 - 350 x10'3/uL 11/30/2016 9:55 AM CDT [facility] MPV 11.3(H) 7.4 - 10.4 FL 11/30/2016 9:55 AM CDT [facility] ABS. NEUTROPHILS TOTAL 1.85 1.60 - 8.30 x10'3/uL 11/30/2016 9:55 AM CDT [facility] ABS. LYMPHOCYTES 0.77(L) 0.80 - 4.70 x10'3/uL 11/30/2016 9:55 AM CDT [facility] ABS. MONOCYTES 0.22 0.00 - 1.50 x10'3/uL 11/30/2016 9:55 AM CDT [facility] ABS. EOSINOPHILS 0.17 0.00 - 0.40 x10'3/uL 11/30/2016 9:55 AM CDT [facility] ABS. BASOPHILS 0.01 0.00 - 0.20 x10'3/uL 11/30/2016 9:55 AM CDT [facility] ABS. IMMATURE GRANULOCYTES 0.05(H) 0.00 - 0.03 x10'3/uL 11/30/2016 9:55 AM CDT [facility] ABS. NUCLEATED RBC'S 0.00 0.0 x10'3/uL 11/30/2016 9:55 AM CDT [facility] PLASMA SPECIMEN / Unknown 11/30/2016 9:59 AM CDT 11/30/2016 9:38 AM CDT us Generic Conversion [facility] Final R esult Performing Organization Address City/State/[facility] Co de Phone Number [facility] [address] [place] [address], [place] [phone] documented in this encounter Visit Diagnoses Not on filedocumented in this encounter
--- OUTSIDE RECORDS SUMMARY | 2024-03-20 12:01 | XMS_ITS | Encounter Summary ---
Author Organization [facility] Address [address] [place] [address]. 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 Optimal blood drug levels are influenced by type of transplant, patient response, time post- transplant, co-administration of other drugs, and drug formulation. The following trough range is a suggested guideline: ? 5.0-20.0 mcg/L Test Performed by Viraj Greer, [employer] [facility], [address] [place], [place] Héctor Avalos M.D., Ph.D., Director of Laboratories , [facility] [id number] WHOLE BLOOD SPECIMEN / Unknown 11/29/2016 8:52 PM CDT 11/29/2016 7:53 PM CDT us Generic Conversion Md [facility] Final R esult [facility] [address] [place], [place] , [place] [phone] documented in this encounter Visit Diagnoses Not on filedocumented in this encounter
--- OUTSIDE RECORDS SUMMARY | 2024-03-20 12:01 | XMS_ITS | Encounter Summary ---
Author Organization [facility] Address [address] [place] [address]. 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 PNEUMONIAE URINARY AG NEGATIVE NEGATIVE 12/01/2016 10:05 AM CDT [facility] Comment: PRESUMPTIVE NEGATIVE FOR PNEUMOCOCCAL PNEUMONIA, SUGGESTING NO CURRENT OR RECENT PNEUMOCOCCAL INFECTION. INFECTION DUE TO STREPTOCOCCUS PNEUMONIA CANNOT BE RULED OUT SINCE THE ANTIGEN PRESENT IN THE SAMPLE MAY BELOW THE DETECTION LIMIT OF THE TEST. SPECIMEN TYPE URINE 12/01/2016 10:05 AM CDT [facility] 11/30/2016 12:3 2 PM CDT 12/01/2016 9:19 AM CDT us Generic Conversion Md [facility] - GENERAL ORDERABLES Final Result Performing Organization Address City/State/[facility] Co de Phone Number [facility] [address] [place] [address], [phone] documented in this encounter Visit Diagnoses Not on filedocumented in this encounter
--- OUTSIDE RECORDS SUMMARY | 2024-03-20 12:01 | XMS_ITS | Encounter Summary ---
Author Organization [facility] Address [address] [place] [address]. 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 INTERPRETATION <0.1 NG/ML ? SEPSIS HIGHLY UNLIKELY 0.1 TO 0.5 NG/ML ? LOW RISK FOR PROGRESSION TO SEPSIS >=0.5 TO <2 NG/ML ?MODERATE RISK FOR PROGRESSION TO SEPSIS >=2 TO <10 NG/ML ? HIGH RISK FOR PROGRESSION TO SEPSIS >=10 NG/ML ? HIGH LIKELIHOOD OF SEVERE SEPSIS OTHER CAUSES OF ELEVATED PROCALCITONIN INCLUDES NEONATES <48 HOURS OF AGE (PHYSIOLOGIC ELEVATION), MAJOR TRAUMA/SURGERY, SEVERE CEDEÑO, INVASIVE FUNGAL INFECTIONS, PROLONGED CARDIOGENIC SHOCK, DRUGS CAUSING PRO-INFLAMMATORY CYTOKINE RELEASE, P FALCIPARUM MALARIA AND RARE PARANEOPLASTIC SYNDROMES. LOWER RESPIRATORY TRACT INFECTION EVALUATION PCT VALUE ? INTERPRETATION <0.1 NG/ML ?BACTERIAL INFECTION VERY UNLIKELY >=0.1 TO <0.25 ?BACTERIAL INFECTION UNLIKELY >=.25 TO <0.5 NG/ML ?? BACTERIAL INFECTION IS LIKELY >=0.5 NG/ML ? BACTERIAL INFECTION IS VERY LIKELY NOTE: PROCALCITONIN EARLY IN BACTERIAL INFECTIONS MAY BE LOW. REASSESSMENT IN 6-24 HOURS IS RECOMMENDED, CLINICALLY INDICATED. SERUM OR PLASMA SPECIMEN / Unknown 11/30/2016 2:23 PM CDT 11/30/2016 1:24 PM CDT us Generic Conversion [facility] Final R esult Performing Organization Address [facility]/State/ZIP Co de Phone Number [facility] [address] [place] [address], documented in this encounter Visit Diagnoses Not on filedocumented in this encounter
--- OUTSIDE RECORDS SUMMARY | 2024-03-20 12:01 | XMS_ITS | Encounter Summary ---
Author Organization [facility] Address [address] [place] [address]. [place] [address] [place] [address] Care Team Providers Care Rotor Winder Name Role Phone Ashley ZUNIGA MD, Hermes Perez Primary Care Provid er Encounter Details Date Type Department Care Team (Latest Contact Info) Description 11/28/2016 Abstract [facility] Social History Tobacco Use Types Packs/Day Years Used Date Smoking Tobacco: Never Assessed Comments Unknown Sex and Gender Information Value Date Recorded Sex Assigned at Not on file Legal Sex Female 9:15 PM OUTPATIENT CASE MANAGER Gender Identity Not on file Sexual Orientation Not on file documented as of this encounter Miscellaneous Notes * Letter - Generic Anisa Case MD - 11/28/2016 11:46 AM CDT Dear Ms. Browne, Our records indicate that you are due for lab work. Please call our office to make the necessary arrangements to have this done. Lab orders attached. You may get these done at a facility of your choice. Sincerely, Your Health Care Team Dr. Valentín Crum Electronically signed by:Jennifer Gordon L.P.N. Nov 28 2016 11:47AM OUTPATIENT CASE MANAGER documented in this encounter Plan of Treatment Not on file documented as of this encounter Visit Diagnoses Not on filedocumented in this encounter Care Teams Rotor Winder Relationship Specialty Start Date End Date Hermes Ramirez III, MD [address] [facility] [address] [place] [address] PCP - General FAMILY PRACTICE 06/20/17 documented as of this encounter
--- OUTSIDE RECORDS SUMMARY | 2024-03-20 12:01 | XMS_ITS | Encounter Summary ---
Author Organization [facility] Address [address] [place] [address]. 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 Gender Identity Not on file Sexual Orientation Not on file documented as of this encounter Plan of Treatment Not on file documented as of this encounter Procedures Procedure Name Priority Date/Time Associated Diagnosis Comments CMV DNA QUANT REAL TIME PCR NOW 11/29/2016 8:52 PM CDT documented in this encounter Results * CMV DNA QUANT REAL TIME PCR (11/29/2016 8:52 PM CDT) SPECIMEN SOURCE WHOLE BLOOD 11/30/2016 7:26 AM CDT [facility] CMV DNA QN PCR (BLD) <200 <200 IU/mL 12/01/2016 10:53 AM CDT [email or web address] CMV DNA QUANT PCR (BLD) <2.30 <2.30 log IU/mL 12/01/2016 10:53 AM CDT [facility] Comment: This test was developed and its analytical performance characteristics have been determined by [facility], [place]. It has not been cleared or approved by the U.S. Food and Drug Administration. This assay has been validated pursuant to the CLIA regulations and is used for clinical purposes. For additional information, please refer to http://[email or web address].Kensho/faq/CMVandEBVPCR (This link is being provided for informational/ educational purposes only.) Test Performed by [facility], [facility], [address] [place], [place] Héctor Avalos M.D., Ph.D., Director of Laboratories , CLIA [id number] WHOLE BLOOD SPECIMEN / Unknown 11/29/2016 8:52 PM CDT 11/29/2016 7:53 PM CDT us Generic Conversion [facility] Final R esult [facility] [id number] [place], [place] , [place] [phone] [facility] [address] [place] [address], [place] [phone] documented in this encounter Visit Diagnoses Not on filedocumented in this encounter
--- OUTSIDE RECORDS SUMMARY | 2024-03-20 12:02 | XMS_ITS | Encounter Summary ---
Author Organization [facility] Address [address] [place] [address]. 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 Gender Identity Not on file Sexual Orientation Not on file documented as of this encounter Plan of Treatment Not on file documented as of this encounter Procedures Procedure Name Priority Date/Time Associated Diagnosis Comments CBC W/DIFF AUTOMATED Routine 11/26/2016 5:27 AM CDT documented in this encounter Results * (ABNORMAL) CBC W/DIFF AUTOMATED (11/26/2016 5:27 AM CDT) WBC 2.8(L) 4.0 - 10.8 x10'3/uL 11/26/2016 5:20 AM CDT [facility] RBC 2.57(L) 4.10 - 5.40 x10'6/uL 11/26/2016 5:20 AM CDT [facility] HGB 8.4(L) 12.0 - 16.0 G/DL 11/26/2016 5:20 AM CDT [facility] HCT 24.3(L) 36.0 - 47.0 % 11/26/2016 5:20 AM CDT [facility] MCV 94.6 78.0 - 100.0 FL 11/26/2016 5:20 AM CDT [facility] MCH 32.7(H) 27.0 - 31.0 PG 11/26/2016 5:20 AM CDT [facility] MCHC 34.6 33.0 - 36.0 G/DL 11/26/2016 5:20 AM CDT [facility] RDW 12.0 11.5 - 14.5 % 11/26/2016 5:20 AM CDT [facility] PLT 47(L) 150 - 350 x10'3/uL 11/26/2016 5:20 AM CDT [facility] MPV 11.4(H) 7.4 - 10.4 FL 11/26/2016 5:20 AM CDT [facility] ABS. NEUTROPHILS TOTAL 1.85 1.60 - 8.30 x10'3/uL 11/26/2016 5:44 AM CDT [facility] ABS. NEUTROPHILS CALCULATED 1.74 1.60 - 7.30 x10'3/uL 11/26/2016 5:44 AM CDT [facility] BANDS 0.11 0.00 - 1.00 x10'3/uL 11/26/2016 5:44 AM CDT [facility] ABS. LYMPHOCYTES 0.73(L) 0.80 - 4.70 x10'3/uL 11/26/2016 5:44 AM CDT [facility] ABS. MONOCYTES 0.11 0.00 - 1.50 x10'3/uL 11/26/2016 5:44 AM CDT [facility] ABS. EOSINOPHILS 0.11 0.00 - 0.40 x10'3/uL 11/26/2016 5:44 AM CDT [facility] ABS. BASOPHILS 0.00 0.00 - 0.20 x10'3/uL 11/26/2016 5:44 AM CDT [facility] ABS. NUCLEATED RBC'S 0.00 0.0 x10'3/uL 11/26/2016 5:44 AM CDT [facility] RBC MORPHOLOGY ANISOCYTOSIS 11/27/19 17 5:44 AM CDT [facility] Comment: SLIGHT POLYCHROMASIA SLIGHT POIKILOCYTOSIS SLIGHT OVALOCYTES ACANTHOCYTES PLT MORPH. LOW 11/26/2016 5:44 AM CDT [facility] PLASMA SPECIMEN / Unknown 11/26/2016 5:27 AM CDT 11/26/2016 5:07 AM CDT us Generic Conversion Md [facility] Final R esult [facility] [address] [place] [address], [id number] documented in this encounter Visit Diagnoses Not on filedocumented in this encounter
--- OUTSIDE RECORDS SUMMARY | 2024-03-20 12:02 | XMS_ITS | Encounter Summary ---
Author Organization [facility] Address [address] [place] [address]. 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 Gender Identity Not on file Sexual Orientation Not on file documented as of this encounter Plan of Treatment Not on file documented as of this encounter Procedures Procedure Name Priority Date/Time Associated Diagnosis Comments COMPREHENSIVE METABOLIC PANEL Routine 11/28/2016 5:39 AM CDT documented in this encounter Results * (ABNORMAL) COMPREHENSIVE METABOLIC PANEL (11/28/2016 5:39 AM CDT) SODIUM S/P/B 137 135 - 147 MMOL/L 11/28/2016 5:50 AM CDT [facility] POTASSIUM S/P/B 4.4 3.5 - 5.0 MMOL/L 11/28/2016 5:50 AM CDT [facility] CHLORIDE S/P/B 115(H) 98 - 107 MMOL/L 11/28/2016 5:50 AM CDT [facility] CO2 17.7(L) 22 - 29 MMOL/L 11/28/2016 5:50 AM CDT [facility] GLUCOSE 96 70 - 109 MG/DL 11/28/2016 5:50 AM CDT [facility] BUN 47(H) 7 - 19 MG/DL 11/28/2016 5:50 AM CDT [facility] CREATININE S/P/B 2.89(H) 0.60 - 1.10 MG/DL 11/28/2016 5:50 AM CDT [facility] CALCIUM S/P/B 7.9(L) 8.4 - 10.2 MG/DL 11/28/2016 5:50 AM CDT [facility] BILIRUBIN TOTAL S/P/B 0.5 0.2 - 1.2 MG/DL 11/28/2016 5:50 AM T [facility] ALKALINE PHOSPHATASE S/P/B 147(H) 37 - 98 U/L 11/28/2016 5:50 AM CDT [facility] AST 15 5 - 35 U/L 11/28/2016 5:50 AM CDT [facility] ALT 9 0 - 55 U/L 11/28/2016 5:50 AM T [facility] TOTAL PROTEIN S/P/B 4.9(L) 6.0 - 8.3 G/DL 11/28/2016 5:50 AM T [facility] ALBUMIN S/P/B 2.8(L) 3.4 - 4.9 G/DL 11/28/2016 5:50 AM CDT [facility] ANION GAP 4.3 MMOL/L 11/28/2016 5:50 AM CDT [facility] OSMOLALITY (CALC) 286 MOSM/KG 11/28/2016 5:50 AM CDT [facility] EGFR NON-AFR. AMER. 19(L) >60 ML/MIN/1.7 3 M2 11/28/2016 5:50 AM CDT [facility] EGFR AFR. AMER. 23(L) >60 ML/MIN/1.7 3 M2 11/28/2016 5:50 AM CDT [facility] PLASMA SPECIMEN / Unknown 11/28/2016 5:39 AM CDT 11/28/2016 5:09 AM CDT us Generic Conversion Md [facility] Final R esult [facility] [address] [place] [address], [id number] documented in this encounter Visit Diagnoses Not on filedocumented in this encounter
--- OUTSIDE RECORDS SUMMARY | 2024-03-20 12:02 | XMS_ITS | Encounter Summary ---
Author Organization [facility] Address [address] [place] [address]. 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 Gender Identity Not on file Sexual Orientation Not on file documented as of this encounter Plan of Treatment Not on file documented as of this encounter Procedures Procedure Name Priority Date/Time Associated Diagnosis Comments MAGNESIUM Routine 11/28/2016 5:39 AM CDT documented in this encounter Results * MAGNESIUM (11/28/2016 5:39 AM CDT) MAGNESIUM 1.8 1.6 - 2.6 MG/DL 11/28/2016 5:50 AM CDT [facility] SERUM OR PLASMA SPECIMEN / Unknown 11/28/2016 5:39 AM CDT 11/28/2016 5:09 AM CDT us Generic Conversion Md [facility] Final R esult [facility] [address] [place] [address], [id number] documented in this encounter Visit Diagnoses Not on filedocumented in this encounter
--- OUTSIDE RECORDS SUMMARY | 2024-03-20 12:02 | XMS_ITS | Encounter Summary ---
Author Organization [facility] Address [address] [place] [address]. 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 Gender Identity Not on file Sexual Orientation Not on file documented as of this encounter Plan of Treatment Not on file documented as of this encounter Procedures Procedure Name Priority Date/Time Associated Diagnosis Comments CULTURE STREP A Nurse Collected Priority 11/26/2016 5:56 PM CDT documented in this encounter Results * CULTURE STREP A (11/26/2016 5:56 PM CDT) SPEC DESCRIPTION THROAT 11/26/2016 4:56 PM CDT [facility] SPECIAL REQUESTS NO SPECIAL REQUEST 11/26/2016 4:56 PM CDT [facility] CULTURE RESULT NO STREPTOCOCCUS PYOGENES (GROUP A) ISOLATED 11/28/2016 7:43 PM CDT [facility] THROAT SWAB / Unknown 11/26/2016 5:56 PM CDT 11/26/2016 5:58 PM CDT us Generic Conversion Md [facility] - GENERAL ORDERABLES Final Result Performing Organization Address City/State/[facility] Co de Phone Number [facility] [address] [place] [address], [place] [phone] documented in this encounter Visit Diagnoses Not on filedocumented in this encounter
--- OUTSIDE RECORDS SUMMARY | 2024-03-20 12:02 | XMS_ITS | Encounter Summary ---
Author Organization [facility] Address [address] [place] [address]. 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 Gender Identity Not on file Sexual Orientation Not on file documented as of this encounter Plan of Treatment Not on file documented as of this encounter Procedures Procedure Name Priority Date/Time Associated Diagnosis Comments LDH, LACTATE DEHYDROGENASE TIMED 11/25/2016 6:13 AM CDT documented in this encounter Results * (ABNORMAL) LDH, LACTATE DEHYDROGENASE (11/25/2016 6:13 AM CDT) LDH 113(L) 125 - 220 UNITS/L 11/25/2016 5:51 AM CDT [facility] SERUM OR PLASMA SPECIMEN / Unknown 11/25/2016 6:13 AM CDT 11/25/2016 5:15 AM CDT us Generic Conversion Md [facility] Final R esult [facility] [address] [place] [address], [id number] documented in this encounter Visit Diagnoses Not on filedocumented in this encounter
--- OUTSIDE RECORDS SUMMARY | 2024-03-20 12:02 | XMS_ITS | Encounter Summary ---
Author Organization [facility] Address [address] [place] [address]. 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 Gender Identity Not on file Sexual Orientation Not on file documented as of this encounter Plan of Treatment Not on file documented as of this encounter Procedures Procedure Name Priority Date/Time Associated Diagnosis Comments MAGNESIUM Routine 11/25/2016 6:13 AM CDT documented in this encounter Results * MAGNESIUM (11/25/2016 6:13 AM CDT) MAGNESIUM 1.7 1.6 - 2.6 MG/DL 11/25/2016 5:52 AM CDT [facility] SERUM OR PLASMA SPECIMEN / Unknown 11/25/2016 6:13 AM CDT 11/25/2016 5:15 AM CDT us Generic Conversion Md [facility] Final R esult [facility] [address] [place] [address], [id number] documented in this encounter Visit Diagnoses Not on filedocumented in this encounter
--- OUTSIDE RECORDS SUMMARY | 2024-03-20 12:02 | XMS_ITS | Encounter Summary ---
Author Organization [facility] Address [address] [place] [address]. 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 [place], [place] ?? Department of Radiology ? MISHA JACKSON Ordering MD: EVELINE VALENTE MD ?? Acct: [id number] ?? : 1980 Pt Type: ADM IN ?? Sex: F Ord Site: MAIN ? Study Date Accession # Procedure Code Procedure ?? 11/27/[id number] XR Foot 2 View Rt ? Signed ? EXAMINATION: ?? X-RAY RIGHT FOOT 2 VIEWS ? EXAM TIME: ?? 2222 hours. ? COMPARISON: ?? None available. ? HISTORY: ?? Pain and swelling near third and fourth metatarsals. No known injury. ? TECHNIQUE: ?? AP and lateral views of the right foot are submitted for evaluation. ? FINDINGS: ? No acute fracture or other bony abnormality is seen. Joint spaces are preserved. No distinct ?? soft tissue abnormality seen. ? IMPRESSION: ? No acute bony, articular or soft tissue abnormality observed. ? Electronically Signed By: KIRT CHEATHAM MD 11/27/162231 ? Dictated On: 11/27/162230 ?? Interpreted By: KIRT CHEATHAM MD ?? Transcribed On: 11/27/162230 - INFCE ? CC: ? EVELINE VALENTE MD Procedure Note Lazara Mendoza MD - 01/11/2018 [place], [place] Department of Radiology MISHA JACKSON Ordering MD: EVELINE VALENTE MD Acct: [id number] : 1980 Pt Type: ADM IN Sex: F Ord Site: MAIN Study Date Accession # Procedure Code Procedure 11/[id number] XR Foot 2 View Rt Signed EXAMINATION: X-RAY RIGHT FOOT 2 VIEWS EXAM TIME: 2222 hours. COMPARISON: None available. HISTORY: Pain and swelling near third and fourth metatarsals. No known injury. TECHNIQUE: AP and lateral views of the right foot are submitted for evaluation. FINDINGS: No acute fracture or other bony abnormality is seen. Joint spaces arepreserved. No distinct soft tissue abnormality seen. IMPRESSION: No acute bony, articular or soft tissue abnormality observed. Electronically Signed By: KIRT CHEATHAM MD 11/27/162231 Dictated On: 11/27/162230 Interpreted By: KIRT CHEATHAM MD Transcribed On: 11/27/162230 - INFCE CC: EVELINE VALENTE MD us Generic Conversion Md [facility] Final R esult documented in this encounter Visit Diagnoses Not on filedocumented in this encounter Care Teams Ror Engineer Relationship Specialty Start Date End Date Hermes Ramirez III, MD [address] [place] [address] PCP - General FAMILY PRACTICE 06/20/17 documented as of this encounter
--- OUTSIDE RECORDS SUMMARY | 2024-03-20 12:02 | XMS_ITS | Encounter Summary ---
Author Organization [facility] Address [address] [place] [address]. 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 Gender Identity Not on file Sexual Orientation Not on file documented as of this encounter Plan of Treatment Not on file documented as of this encounter Procedures Procedure Name Priority Date/Time Associated Diagnosis Comments CBC W/DIFF AUTOMATED Routine 11/27/2016 7:31 AM CDT documented in this encounter Results * (ABNORMAL) CBC W/DIFF AUTOMATED (11/27/2016 7:31 AM CDT) WBC 2.5(L) 4.0 - 10.8 x10'3/uL 11/27/2016 7:02 AM CDT [facility] RBC 2.48(L) 4.10 - 5.40 x10'6/uL 11/27/2016 7:02 AM CDT [facility] HGB 8.3(L) 12.0 - 16.0 G/DL 11/27/2016 7:02 AM CDT [facility] HCT 23.5(L) 36.0 - 47.0 % 11/27/2016 7:02 AM CDT [facility] MCV 94.8 78.0 - 100.0 FL 11/27/2016 7:02 AM CDT [facility] MCH 33.5(H) 27.0 - 31.0 PG 11/27/2016 7:02 AM CDT [facility] MCHC 35.3 33.0 - 36.0 G/DL 11/27/2016 7:02 AM CDT [facility] RDW 12.4 11.5 - 14.5 % 11/27/2016 7:02 AM CDT [facility] PLT 42(L) 150 - 350 x10'3/uL 11/27/2016 7:02 AM T [facility] MPV 11.3(H) 7.4 - 10.4 FL 11/27/2016 7:02 AM T [facility] ABS. NEUTROPHILS TOTAL 1.38(L) 1.60 - 8.30 x10'3/uL 11/27/2016 7:34 AM CDT [facility] ABS. NEUTROPHILS CALCULATED 1.33(L) 1.60 - 7.30 x10'3/uL 11/27/2016 7:34 AM CDT [facility] BANDS 0.05 0.00 - 1.00 x10'3/uL 11/27/2016 7:34 AM CDT [facility] ABS. LYMPHOCYTES 0.73(L) 0.80 - 4.70 x10'3/uL 11/27/2016 7:34 AM CDT [facility] ABS. MONOCYTES 0.25 0.00 - 1.50 x10'3/uL 11/27/2016 7:34 AM CDT [facility] ABS. EOSINOPHILS 0.15 0.00 - 0.40 x10'3/uL 11/27/2016 7:34 AM CDT [facility] ABS. BASOPHILS 0.00 0.00 - 0.20 x10'3/uL 11/27/2016 7:34 AM CDT [facility] ABS. NUCLEATED RBC'S 0.00 0.0 x10'3/uL 11/27/2016 7:34 AM CDT [facility] RBC MORPHOLOGY ANISOCYTOSIS 11/28/19 17 7:34 AM CDT [facility] Comment: SLIGHT POLYCHROMASIA SLIGHT PLT MORPH. LOW 11/27/2016 7:34 AM CDT [facility] PLASMA SPECIMEN / Unknown 11/27/2016 7:31 AM CDT 11/27/2016 6:54 AM CDT us Generic Conversion Md [facility] Final R esult [facility] [address] [place] [address], [id number] documented in this encounter Visit Diagnoses Not on filedocumented in this encounter
--- OUTSIDE RECORDS SUMMARY | 2024-03-20 12:02 | XMS_ITS | Encounter Summary ---
Author Organization [facility] Address [address] [place] [address]. 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 [address], [id number] documented in this encounter Visit Diagnoses Not on filedocumented in this encounter
--- OUTSIDE RECORDS SUMMARY | 2024-03-20 12:02 | XMS_ITS | Encounter Summary ---
Author Organization [facility] Address [address] [place] [address]. 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 Gender Identity Not on file Sexual Orientation Not on file documented as of this encounter Plan of Treatment Not on file documented as of this encounter Procedures Procedure Name Priority Date/Time Associated Diagnosis Comments RAPID STREP A Nurse Collected Priority 11/26/2016 5:56 PM CDT documented in this encounter Results * RAPID STREP A (11/26/2016 5:56 PM CDT) SPEC DESCRIPTION THROAT 11/26/2016 4:56 PM CDT [facility] SPECIAL REQUESTS NO SPECIAL REQUEST 11/26/2016 4:56 PM CDT [facility] RAPID STREP TEST NEGATIVE FOR GROUP A BETA STREP 11/26/2016 6:06 PM CDT [facility] THROAT SWAB / Unknown 11/26/2016 5:56 PM CDT 11/26/2016 5:58 PM CDT us Generic Conversion Md [facility] - GENERAL ORDERABLES Final Result Performing Organization Address City/State/[facility] Co de Phone Number [facility] [address] [place] [address], [id number] documented in this encounter Visit Diagnoses Not on filedocumented in this encounter
--- OUTSIDE RECORDS SUMMARY | 2024-03-20 12:02 | XMS_ITS | Encounter Summary ---
Author Organization [facility] [place] [facility] Address [address] [place] [address]. 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 Gender Identity Not on file Sexual Orientation Not on file documented as of this encounter Plan of Treatment Not on file documented as of this encounter Procedures Procedure Name Priority Date/Time Associated Diagnosis Comments CBC W/DIFF AUTOMATED TIMED 11/25/2016 6:13 AM CDT documented in this encounter Results * (ABNORMAL) CBC W/DIFF AUTOMATED (11/25/2016 6:13 AM CDT) WBC 2.2(L) 4.0 - 10.8 x10'3/uL 11/25/2016 5:43 AM CDT [facility] RBC 2.53(L) 4.10 - 5.40 x10'6/uL 11/25/2016 5:43 AM CDT [facility] HGB 8.4(L) 12.0 - 16.0 G/DL 11/25/2016 5:43 AM CDT [facility] HCT 24.2(L) 36.0 - 47.0 % 11/25/2016 5:43 AM CDT [facility] MCV 95.7 78.0 - 100.0 FL 11/25/2016 5:43 AM CDT [facility] MCH 33.2(H) 27.0 - 31.0 PG 11/25/2016 5:43 AM CDT [facility] MCHC 34.7 33.0 - 36.0 G/DL 11/25/2016 5:43 AM CDT [facility] RDW 12.3 11.5 - 14.5 % 11/25/2016 5:43 AM CDT [facility] PLT 47(L) 150 - 350 x10'3/uL 11/25/2016 5:43 AM T [facility] MPV 11.1(H) 7.4 - 10.4 FL 11/25/2016 5:43 AM CDT [facility] ABS. NEUTROPHILS TOTAL 1.19(L) 1.60 - 8.30 x10'3/uL 11/25/2016 6:33 AM CDT [facility] ABS. NEUTROPHILS CALCULATED 1.19(L) 1.60 - 7.30 x10'3/uL 11/25/2016 6:33 AM CDT [facility] ABS. LYMPHOCYTES 0.77(L) 0.80 - 4.70 x10'3/uL 11/25/2016 6:33 AM CDT [facility] ABS. MONOCYTES 0.09 0.00 - 1.50 x10'3/uL 11/25/2016 6:33 AM CDT [facility] ABS. EOSINOPHILS 0.15 0.00 - 0.40 x10'3/uL 11/25/2016 6:33 AM CDT [facility] ABS. BASOPHILS 0.00 0.00 - 0.20 x10'3/uL 11/25/2016 6:33 AM CDT [facility] ABS. NUCLEATED RBC'S 0.00 0.0 x10'3/uL 11/25/2016 6:33 AM CDT [facility] RBC MORPHOLOGY POLYCHROMASIA 017 6:33 AM CDT [facility] Comment: SLIGHT POIKILOCYTOSIS SLIGHT OVALOCYTES TEARDROP CELLS PLT MORPH. LOW 11/25/2016 6:33 AM CDT [facility] PLASMA SPECIMEN / Unknown 11/25/2016 6:13 AM CDT 11/25/2016 5:15 AM CDT us Generic Conversion [facility] Final R esult [facility] [address] [place] [address], [place] [phone] [id number] documented in this encounter Visit Diagnoses Not on filedocumented in this encounter
--- OUTSIDE RECORDS SUMMARY | 2024-03-20 12:02 | XMS_ITS | Encounter Summary ---
Author Organization [facility] Address [address] [place] [address]. 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 Gender Identity Not on file Sexual Orientation Not on file documented as of this encounter Plan of Treatment Not on file documented as of this encounter Procedures Procedure Name Priority Date/Time Associated Diagnosis Comments CBC W/DIFF AUTOMATED Routine 11/28/2016 5:39 AM CDT documented in this encounter Results * (ABNORMAL) CBC W/DIFF AUTOMATED (11/28/2016 5:39 AM CDT) WBC 2.8(L) 4.0 - 10.8 x10'3/uL 11/28/2016 5:27 AM CDT [facility] RBC 2.47(L) 4.10 - 5.40 x10'6/uL 11/28/2016 5:27 AM CDT [facility] HGB 8.3(L) 12.0 - 16.0 G/DL 11/28/2016 5:27 AM CDT [facility] HCT 23.4(L) 36.0 - 47.0 % 11/28/2016 5:27 AM CDT [facility] MCV 94.7 78.0 - 100.0 FL 11/28/2016 5:27 AM CDT [facility] MCH 33.6(H) 27.0 - 31.0 PG 11/28/2016 5:27 AM CDT [facility] MCHC 35.5 33.0 - 36.0 G/DL 11/28/2016 5:27 AM CDT [facility] RDW 12.3 11.5 - 14.5 % 11/28/2016 5:27 AM CDT [facility] PLT 44(L) 150 - 350 x10'3/uL 11/28/2016 5:27 AM CDT [facility] MPV 11.3(H) 7.4 - 10.4 FL 11/28/2016 5:27 AM CDT [facility] ABS. NEUTROPHILS TOTAL 1.57(L) 1.60 - 8.30 x10'3/uL 11/28/2016 7:29 AM CDT [facility] ABS. NEUTROPHILS CALCULATED 1.57(L) 1.60 - 7.30 x10'3/uL 11/28/2016 7:29 AM CDT [facility] ABS. LYMPHOCYTES 0.87 0.80 - 4.70 x10'3/uL 11/28/2016 7:29 AM CDT [facility] ABS. MONOCYTES 0.20 0.00 - 1.50 x10'3/uL 11/28/2016 7:29 AM CDT [facility] ABS. EOSINOPHILS 0.17 0.00 - 0.40 x10'3/uL 11/28/2016 7:29 AM CDT [facility] ABS. BASOPHILS 0.00 0.00 - 0.20 x10'3/uL 11/28/2016 7:29 AM CDT [facility] ABS. NUCLEATED RBC'S 0.00 0.0 x10'3/uL 11/28/2016 7:29 AM CDT [facility] RBC MORPHOLOGY POLYCHROMASIA 017 7:29 AM CDT [facility] Comment:SLIGHT PLT MORPH. LOW 11/28/2016 7:29 AM CDT [facility] PLASMA SPECIMEN / Unknown 11/28/2016 5:39 AM CDT 11/28/2016 5:09 AM CDT us Generic Conversion Md [facility] Final R esult [facility] [address] [place] [address], [id number] documented in this encounter Visit Diagnoses Not on filedocumented in this encounter
--- OUTSIDE RECORDS SUMMARY | 2024-03-20 12:02 | XMS_ITS | Encounter Summary ---
Author Organization [facility] Address [address] [place] [address]. 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 U/mL ?Interpretation ?<36.00 ?Negative 36.00 - 43.99 ?Equivocal ??>43.99 ?Positive EBV VCA IGG 292.00(H) <18.00 U/mL 12/01/2016 11:38 AM CDT [facility] Comment: ?? U/mL ?Interpretation ?<18.00 ?Negative 18.00 - 21.99 ?Equivocal ??>21.99 ?Positive LOUIS BAR NUCLEAR ANTIGEN IGG 30.10(H) <18.00 U/mL 12/01/2016 11:38 AM CDT [facility] Comment: ?? 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 In infants, a similiar pattern may occur as a result of a passive maternal transfer of antibody. Test Performed by Viraj Greer, [address] [place], [address] [place], [place] Héctor Avalos M.D., Ph.D., Director of Laboratories , [place] [id number] SERUM SPECIMEN / Unknown 11/26/2016 5:27 AM CDT 11/26/2016 5:07 AM CDT us Generic Conversion Md [facility] Final R esult [facility] [address] [place], [place] , documented in this encounter Visit Diagnoses Not on filedocumented in this encounter
--- OUTSIDE RECORDS SUMMARY | 2024-03-20 12:02 | XMS_ITS | Encounter Summary ---
Author Organization [facility] [place] [facility] Address [address] [place] [address]. [place] [address] [place] [address] Care Team Providers Care Customer Trainer Name Role Phone Unavailable Primary Care Provider Unavailabl e Encounter Details Date Type Department Care Team (Late st Contact Info) Description 11/25/2016 Orders [place] [address] , Generic Conversion, Social History Tobacco Use Types Packs/Day Years Used Date Smoking Tobacco: Never Assessed Comments Unknown Sex and Gender Information Value Date Recorded Sex Assigned at Not on file Legal Sex Female 9:15 PM CHANNELER INSOLE Gender Identity Not on file Sexual Orientation Not on file documented as of this encounter Plan of Treatment Not on file documented as of this encounter Procedures Procedure Name Priority Date/Time Associated Diagnosis Comments RETICULOCYTE CT, AUTO TIMED 11/25/2016 6:13 AM CDT documented in this encounter Results * (ABNORMAL) RETICULOCYTE CT, AUTO (11/25/2016 6:13 AM CDT) % RETICULOCYTE COUNT 0.8 0.6 - 2.3 % 11/25/2016 5:43 AM CDT [facility] ABSOLUTE RETICULOCYTE 0.02 0.02 - 0.10 x10'6/uL 11/25/2016 5:43 AM CDT [facility] IMMATURE RETIC FRACTION 5.3 3.0 - 15.9 % 11/25/2016 5:43 AM CDT [facility] RETIC HGB 36.2(H) 28.0 - 35.0 PG 11/25/2016 5:43 AM CDT [facility] PLASMA SPECIMEN / Unknown 11/25/2016 6:13 AM CDT 11/25/2016 5:15 AM CDT us Generic Conversion Md [facility] Final R esult [facility] [address] [place] [address], [id number] documented in this encounter Visit Diagnoses Not on filedocumented in this encounter
--- OUTSIDE RECORDS SUMMARY | 2024-03-20 12:02 | XMS_ITS | Encounter Summary ---
Author Organization [facility] Address [address] [place] [address]. 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 Gender Identity Not on file Sexual Orientation Not on file documented as of this encounter Plan of Treatment Not on file documented as of this encounter Procedures Procedure Name Priority Date/Time Associated Diagnosis Comments COMPREHENSIVE METABOLIC PANEL Routine 11/26/2016 5:27 AM CDT documented in this encounter Results * (ABNORMAL) COMPREHENSIVE METABOLIC PANEL (11/26/2016 5:27 AM CDT) SODIUM S/P/B 137 135 - 147 MMOL/L 11/26/2016 5:46 AM CDT [facility] POTASSIUM S/P/B 4.4 3.5 - 5.0 MMOL/L 11/26/2016 5:46 AM CDT [facility] CHLORIDE S/P/B 114(H) 98 - 107 MMOL/L 11/26/2016 5:46 AM CDT [facility] CO2 18.3(L) 22 - 29 MMOL/L 11/26/2016 5:46 AM [facility] GLUCOSE 96 70 - 109 MG/DL 11/26/2016 5:46 AM [facility] BUN 44(H) 7 - 19 MG/DL 11/26/2016 5:46 AM [facility] CREATININE S/P/B 3.49(H) 0.60 - 1.10 MG/DL 11/26/2016 5:46 AM [facility] CALCIUM S/P/B 7.9(L) 8.4 - 10.2 MG/DL 11/26/2016 5:46 AM [facility] BILIRUBIN TOTAL S/P/B 0.4 0.2 - 1.2 MG/DL 11/26/2016 5:46 AM [facility] ALKALINE PHOSPHATASE S/P/B 150(H) 37 - 98 U/L 11/26/2016 5:46 AM [facility] AST 16 5 - 35 U/L 11/26/2016 5:46 AM [facility] ALT 9 0 - 55 U/L 11/26/2016 5:46 AM [facility] TOTAL PROTEIN S/P/B 4.9(L) 6.0 - 8.3 G/DL 11/26/2016 5:46 AM [facility] ALBUMIN S/P/B 2.9(L) 3.4 - 4.9 G/DL 11/26/2016 5:46 AM [facility] ANION GAP 4.7 MMOL/L 11/26/2016 5:46 AM [facility] OSMOLALITY (CALC) 285 MOSM/KG 11/26/2016 5:46 AM [facility] EGFR NON-AFR. AMER. 15(L) >60 ML/MIN/1.7 3 M2 11/26/2016 5:46 AM [facility] EGFR AFR. AMER. 18(L) >60 ML/MIN/1.7 3 M2 11/26/2016 5:46 AM CDT [facility] PLASMA SPECIMEN / Unknown 11/26/2016 5:27 AM CDT 11/26/2016 5:07 AM CDT us Generic Conversion Md [facility] Final R esult [facility] [address] [place] [address], [id number] documented in this encounter Visit Diagnoses Not on filedocumented in this encounter
--- OUTSIDE RECORDS SUMMARY | 2024-03-20 12:02 | XMS_ITS | Encounter Summary ---
Author Organization [facility] Address [address] [place] [address]. [place] [address] [place] [address] Care Team Providers Care Skatesman Name Role Phone Unavailable Primary Care Provider Unavailabl e Encounter Details Date Type Department Care Team (Late st Contact Info) Description 11/26/2016 Orders [place] [address] , Generic Conversion, Social History Tobacco Use Types Packs/Day Years Used Date Smoking Tobacco: Never Assessed Comments Unknown Sex and Gender Information Value Date Recorded Sex Assigned at Not on file Legal Sex Female 9:15 PM MANAGER BRAND Gender Identity Not on file Sexual Orientation Not on file documented as of this encounter Plan of Treatment Not on file documented as of this encounter Procedures Procedure Name Priority Date/Time Associated Diagnosis Comments MAGNESIUM Routine 11/26/2016 5:27 AM CDT documented in this encounter Results * MAGNESIUM (11/26/2016 5:27 AM CDT) MAGNESIUM 1.7 1.6 - 2.6 MG/DL 11/26/2016 5:46 AM CDT [facility] SERUM OR PLASMA SPECIMEN / Unknown 11/26/2016 5:27 AM CDT 11/26/2016 5:07 AM CDT us Generic Conversion Md [facility] Final R esult [facility] [address] [place] [address], [id number] documented in this encounter Visit Diagnoses Not on filedocumented in this encounter
--- OUTSIDE RECORDS SUMMARY | 2024-03-20 12:02 | XMS_ITS | Encounter Summary ---
Author Organization [facility] Address [address] [place] [address]. 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 Gender Identity Not on file Sexual Orientation Not on file documented as of this encounter Plan of Treatment Not on file documented as of this encounter Procedures Procedure Name Priority Date/Time Associated Diagnosis Comments CYTOMEGALOVIRUS ANTIBODIES IGG/IGM TIMED 11/25/2016 6:13 AM CDT documented in this encounter Results * (ABNORMAL) CYTOMEGALOVIRUS ANTIBODIES IGG/IGM (11/25/2016 6:13 AM CDT) CMV IGG POSITIVE(A ) NEGATIVE 11/29/2016 3:51 PM CDT [facility] CMV IGM POSITIVE(A ) NEGATIVE 11/29/2016 1:15 PM CDT [facility] Comment: CRITICAL RESULT, SPECIMEN DATE, TIME WERE READ BACK BY Micky Marrero, at 1412 on 11/29/16.TS 11/25/2016 6:13 AM CDT 11/25/2016 5:15 AM CDT us Generic Conversion Md [facility] Final R esult [facility] [address] [place] [address], [id number] documented in this encounter Visit Diagnoses Not on filedocumented in this encounter
--- OUTSIDE RECORDS SUMMARY | 2024-03-20 12:02 | XMS_ITS | Encounter Summary ---
Author Organization [facility] Address [address] [place] [address]. 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
--- OUTSIDE RECORDS SUMMARY | 2024-03-20 12:02 | XMS_ITS | Encounter Summary ---
Author Organization [facility] Address [address] [place] [address]. 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 Gender Identity Not on file Sexual Orientation Not on file documented as of this encounter Plan of Treatment Not on file documented as of this encounter Procedures Procedure Name Priority Date/Time Associated Diagnosis Comments COMPREHENSIVE METABOLIC PANEL Routine 11/27/2016 7:31 AM CDT documented in this encounter Results * (ABNORMAL) COMPREHENSIVE METABOLIC PANEL (11/27/2016 7:31 AM CDT) SODIUM S/P/B 137 135 - 147 MMOL/L 11/27/2016 7:29 AM CDT [facility] POTASSIUM S/P/B 4.5 3.5 - 5.0 MMOL/L 11/27/2016 7:29 AM CDT [facility] CHLORIDE S/P/B 116(H) 98 - 107 MMOL/L 11/27/2016 7:29 AM CDT [facility] CO2 16.1(L) 22 - 29 MMOL/L 11/27/2016 7:29 AM [facility] GLUCOSE 79 70 - 109 MG/DL 11/27/2016 7:29 AM [facility] BUN 48(H) 7 - 19 MG/DL 11/27/2016 7:29 AM [facility] CREATININE S/P/B 3.12(H) 0.60 - 1.10 MG/DL 11/27/2016 7:29 AM [facility] CALCIUM S/P/B 8.0(L) 8.4 - 10.2 MG/DL 11/27/2016 7:29 AM [facility] BILIRUBIN TOTAL S/P/B 0.4 0.2 - 1.2 MG/DL 11/27/2016 7:29 AM [facility] ALKALINE PHOSPHATASE S/P/B 152(H) 37 - 98 U/L 11/27/2016 7:29 AM [facility] AST 14 5 - 35 U/L 11/27/2016 7:29 AM [facility] ALT 9 0 - 55 U/L 11/27/2016 7:29 AM [facility] TOTAL PROTEIN S/P/B 5.2(L) 6.0 - 8.3 G/DL 11/27/2016 7:29 AM [facility] ALBUMIN S/P/B 3.0(L) 3.4 - 4.9 G/DL 11/27/2016 7:29 AM [facility] ANION GAP 4.9 MMOL/L 11/27/2016 7:29 AM [facility] OSMOLALITY (CALC) 285 MOSM/KG 11/27/2016 7:29 AM [facility] EGFR NON-AFR. AMER. 17(L) >60 ML/MIN/1.7 3 M2 11/27/2016 7:29 AM [facility] EGFR AFR. AMER. 21(L) >60 ML/MIN/1.7 3 M2 11/27/2016 7:29 AM CDT [facility] PLASMA SPECIMEN / Unknown 11/27/2016 7:31 AM CDT 11/27/2016 6:54 AM CDT us Generic Conversion Md [facility] Final R esult [facility] [address] [place] [address], [id number] documented in this encounter Visit Diagnoses Not on filedocumented in this encounter
--- OUTSIDE RECORDS SUMMARY | 2024-03-20 12:02 | XMS_ITS | Encounter Summary ---
Author Organization [facility] Address [address] [place] [address]. [place] [address] [place] [address] Care Team Providers Care Hide Inspector Name Role Phone Unavailable Primary Care Provider Unavailabl e Encounter Details Date Type Department Care Team (Late st Contact Info) Description 11/25/2016 Orders Only [place] [address] , Generic Conversion, Social History Tobacco Use Types Packs/Day Years Used Date Smoking Tobacco: Never Assessed Comments Unknown Sex and Gender Information Value Date Recorded Sex Assigned at Not on file Legal Sex Female 9:15 PM HOOP RIVETER Gender Identity Not on file Sexual Orientation Not on file documented as of this encounter Plan of Treatment Not on file documented as of this encounter Procedures Procedure Name Priority Date/Time Associated Diagnosis Comments ANTISTREPTOLYSIN O SCREEN STAT 11/25/2016 2:07 PM CDT documented in this encounter Results * ANTISTREPTOLYSIN O SCREEN (11/25/2016 2:07 PM CDT) ASO TITER 200 0 - 201 IU/ML 11/25/2016 2:19 PM CDT [facility] SERUM SPECIMEN / Unknown 11/25/2016 2:07 PM CDT 11/25/2016 1:13 PM CDT us Generic Conversion [facility] Final R esult [facility] [address] [place] [address], [place] [phone] [id number] documented in this encounter Visit Diagnoses Not on filedocumented in this encounter
--- OUTSIDE RECORDS SUMMARY | 2024-03-20 12:02 | XMS_ITS | Encounter Summary ---
Author Organization [facility] Address [address] [place] [address]. 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 Gender Identity Not on file Sexual Orientation Not on file documented as of this encounter Plan of Treatment Not on file documented as of this encounter Procedures Procedure Name Priority Date/Time Associated Diagnosis Comments COMPREHENSIVE METABOLIC PANEL Routine 11/25/2016 6:13 AM CDT documented in this encounter Results * (ABNORMAL) COMPREHENSIVE METABOLIC PANEL (11/25/2016 6:13 AM CDT) SODIUM S/P/B 136 135 - 147 MMOL/L 11/25/2016 5:52 AM CDT [facility] POTASSIUM S/P/B 4.7 3.5 - 5.0 MMOL/L 11/25/2016 5:52 AM CDT [facility] CHLORIDE S/P/B 112(H) 98 - 107 MMOL/L 11/25/2016 5:52 AM CDT [facility] CO2 21.5(L) 22 - 29 MMOL/L 11/25/2016 5:52 AM T [facility] GLUCOSE 94 70 - 109 MG/DL 11/25/2016 5:52 AM [facility] BUN 36(H) 7 - 19 MG/DL 11/25/2016 5:52 AM [facility] CREATININE S/P/B 3.59(H) 0.60 - 1.10 MG/DL 11/25/2016 5:52 AM [facility] CALCIUM S/P/B 7.8(L) 8.4 - 10.2 MG/DL 11/25/2016 5:52 AM [facility] BILIRUBIN TOTAL S/P/B 0.4 0.2 - 1.2 MG/DL 11/25/2016 5:52 AM [facility] ALKALINE PHOSPHATASE S/P/B 152(H) 37 - 98 U/L 11/25/2016 5:52 AM [facility] AST 15 5 - 35 U/L 11/25/2016 5:52 AM [facility] ALT 9 0 - 55 U/L 11/25/2016 5:52 AM [facility] TOTAL PROTEIN S/P/B 4.8(L) 6.0 - 8.3 G/DL 11/25/2016 5:52 AM [facility] ALBUMIN S/P/B 2.8(L) 3.4 - 4.9 G/DL 11/25/2016 5:52 AM [facility] ANION GAP 2.5 MMOL/L 11/25/2016 5:52 AM [facility] OSMOLALITY (CALC) 280 MOSM/KG 11/25/2016 5:52 AM [facility] EGFR NON-AFR. AMER. 15(L) >60 ML/MIN/1.7 3 M2 11/25/2016 5:52 AM [facility] EGFR AFR. AMER. 18(L) >60 ML/MIN/1.7 3 M2 11/25/2016 5:52 AM CDT [facility] PLASMA SPECIMEN / Unknown 11/25/2016 6:13 AM CDT 11/25/2016 5:15 AM CDT us Generic Conversion Md [facility] Final R esult [facility] [address] [place] [address], [id number] documented in this encounter Visit Diagnoses Not on filedocumented in this encounter
--- OUTSIDE RECORDS SUMMARY | 2024-03-20 12:03 | XMS_ITS | Encounter Summary ---
Author Organization [facility] Address [address] [place] [address]. 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 Gender Identity Not on file Sexual Orientation Not on file documented as of this encounter Plan of Treatment Not on file documented as of this encounter Procedures Procedure Name Priority Date/Time Associated Diagnosis Comments C-REACTIVE PROTEIN TIMED 11/25/2016 6: 13 AM CDT documented in this encounter Results * C-REACTIVE PROTEIN (11/25/2016 6:13 AM CDT) C-REACTIVE PROTEIN 0.13 <0.6 mg/dL 11/25/2016 5:51 AM CDT [facility] SERUM OR PLASMA SPECIMEN / Unknown 11/25/2016 6:13 AM CDT 11/25/2016 5:15 AM CDT us Generic Conversion Md [facility] Final R esult [facility] [address] [place] [address], [id number] documented in this encounter Visit Diagnoses Not on filedocumented in this encounter
--- OUTSIDE RECORDS SUMMARY | 2024-03-20 12:03 | XMS_ITS | Encounter Summary ---
Author Organization [facility] Address [address] [place] [address]. 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
--- OUTSIDE RECORDS SUMMARY | 2024-03-20 12:03 | XMS_ITS | Encounter Summary ---
Author Organization [facility] Address [address] [place] [address]. 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 [place], [place] ?? Department of Radiology ? MISHA JACKSON Ordering MD: LESTER WINSTON MD ?? Acct: [id number] ?? : 1980 Pt Type: ADM IN ?? Sex: F Ord Site: MAIN ? Study Date Accession # Procedure Code Procedure ?? 11/24/16 [id number] [facility] US Abdomen Complete ? Signed ? EXAM: US Abdomen Complete ? DATE: 11/24/2016 8:49 PM ? HISTORY: abnormal liver enzymes and pancytopenia ?? AGE: [age] years old ? COMPARISON: None. ? TECHNIQUE: Grayscale, color Doppler, and spectral Doppler ultrasound of the abdomen were used. ? FINDINGS: ?? MAIN PORTAL VEIN: Hepatopedal flow normal caliber. ? LIVER: Normal size (span measured at 12 cm) and echogenicity without surface nodularity. No ?? focal lesions are identified. ? BILIARY TREE: ??No ductal (intrahepatic, common bile duct) dilation. The gallbladder is absent. ? PANCREAS: The proximal body of the pancreas appear normal. ??The head and distal body and tail ?? are not visualized due to shadows from bowel gas. ? SPLEEN: Span measured at 15 x 15 x 6 cm with normal parenchyma. ? KIDNEYS: Normal parenchyma without hydronephrosis. ??Span of 10 cm measured on right and 9 cm ?? measured on left. ? AORTA: The visualized portion has normal caliber and spectral Doppler flow pattern. ? IVC: The visualized portion has normal caliber. ? FREE FLUID: None. ? IMPRESSION: ?? 1. ??Prominent spleen. 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 ? Electronically Signed By: CONCHITA NEGRON MD 11/24/162058 ? Dictated On: 11/24/162048 ?? Interpreted By: CONCHITA NERGON MD ?? Transcribed On: 11/24/162048 - INFCE ? CC: ? LETSER WINSTON MD Procedure Note Lazara Case MD - 01/11/2018 [place], [place] Department of Radiology MISHA JACKSON Ordering MD: LESTER WINSTON MD Acct: [id number] : 1980 Pt Type: ADM IN Sex: F Ord Site: MAIN Study Date Accession # Procedure Code Procedure 11/24/16 [id number] [facility] US Abdomen Complete Signed EXAM: US Abdomen Complete DATE: 11/24/2016 8:49 PM HISTORY: abnormal liver enzymes and pancytopenia AGE: [age] years old COMPARISON: None. TECHNIQUE: Grayscale, color Doppler, and spectral Doppler ultrasound ofthe abdomen were used. FINDINGS: MAIN PORTAL VEIN: Hepatopedal flow normal caliber. LIVER: Normal size (span measured at 12 cm) and echogenicity withoutsurface nodularity. No focal lesions are identified. BILIARY TREE: No ductal (intrahepatic, common bile duct) dilation. Thegallbladder is absent. PANCREAS: The proximal body of the pancreas appear normal. The head anddistal body and tail are not visualized due to shadows from bowel gas. SPLEEN: Span measured at 15 x 15 x 6 cm with normal parenchyma. KIDNEYS: Normal parenchyma without hydronephrosis. Span of 10 cmmeasured on right and 9 cm measured on left. AORTA: The visualized portion has normal caliber and spectral Dopplerflow pattern. IVC: The visualized portion has normal caliber. FREE FLUID: None. IMPRESSION: 1. Prominent spleen. Normal ultrasound of the transplant liverparenchyma. Electronically Signed By: CONCHITA NEGRON MD 11/24/162058 Dictated On: 11/24/162048 Interpreted By: CONCHITA NEGRON MD Transcribed On: 11/24/162048 - INFCE CC: LESTER WINSTON MD us Lester Winston MD ULTRASOUND Final Result documented in this encounter Visit Diagnoses Not on filedocumented in this encounter Care Teams Traffic Control Signaler Relationship Specialty Start Date End Date Hermes Ramirez III, MD [address] [facility] [address] [place] [address] PCP - General FAMILY PRACTICE 06/20/17 documented as of this encounter
--- OUTSIDE RECORDS SUMMARY | 2024-03-20 12:03 | XMS_ITS | Encounter Summary ---
Author Organization [facility] Address [address] [place] [address]. 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 [place], [place] ?? Department of Radiology ? MISHA JACKSON Ordering MD: DENYS QUIJANO MD ?? Acct: [id number] ?? : 1980 Pt Type: ADM IN ?? Sex: F Ord Site: MAIN ? Study Date Accession # Procedure Code Procedure ?? 11/24/16 [id number] [facility] Renal and Bladder Bi ? Signed ? EXAM: ULTRASOUND BILATERAL ??KIDNEYS AND BLADDER ? CLINICAL STATEMENT: ? CHRISTY on CKD r/o obstruction ? COMPARISON: 09/24/2016 ? TECHNIQUE: Focused sonographic images of the kidneys and bladder are obtained to assess ?? grayscale appearance color flow. ? FINDINGS: ?? The right kidney measures ??8.3 x 3.7 x 4.2 cm. The right renal parenchymal echogenicity may be ?? mildly hyperechoic. There is no evidence for masses, calculi, or hydronephrosis.. There is ?? appropriate color flow to the right kidney. ? The left kidney measures ??9.1 x 3.2 x 3.5 cm. The left renal parenchymal may be mildly ?? hyperechoic with some mild cortical thinning.. ??There is no evidence for masses, calculi, or ?? hydronephrosis. . There is appropriate color flow to the left kidney. ? The bladder is physiologically distended. No bladder mass identified. Bilateral urine jets ?? identified. ?? Incidental note made of 2.5 cm left ovarian cyst. ? IMPRESSION:. ? 1. No hydronephrosis. ?? 2. Possibly some minimally increased cortical echogenicity bilaterally noted as well as some ?? generalized cortical thinning of the left kidney. ?? 3. Incidental 3.5 cm left ovarian cyst noted. ? Electronically Signed By: RUBIO ACEVES MD 11/24/16 075 ? Dictated On: 11/24/16745 ?? Interpreted By: RUBIO ACEVES MD ?? Transcribed On: 11/24/16745 - INFCE ? CC: ? DENYS QUIJANO MD Procedure Note Lazara Mendoza MD - 01/11/2018 [place], [place] Department of Radiology MISHA JACKSON Ordering MD: DENYS QUIJANO MD Acct: [id number] : 1980 Pt Type: ADM IN Sex: F Ord Site: MAIN Study Date Accession # Procedure Code Procedure 11/24/16 [id number] [facility] US Renal and Bladder Bi Signed EXAM: ULTRASOUND BILATERAL KIDNEYS AND BLADDER CLINICAL STATEMENT: CHRISTY on CKD r/o obstruction COMPARISON: 09/24/2016 TECHNIQUE: Focused sonographic images of the kidneys and bladder areobtained to assess grayscale appearance color flow. FINDINGS: The right kidney measures 8.3 x 3.7 x 4.2 cm. The right renalparenchymal echogenicity may be mildly hyperechoic. There is no evidence for masses, calculi, orhydronephrosis.. There is appropriate color flow to the right kidney. The left kidney measures 9.1 x 3.2 x 3.5 cm. The left renal parenchymalmay be mildly hyperechoic with some mild cortical thinning.. There is no evidence formasses, calculi, or hydronephrosis. . There is appropriate color flow to the left kidney. The bladder is physiologically distended. No bladder mass identified.Bilateral urine jets identified. Incidental note made of 2.5 cm left ovarian cyst. IMPRESSION:. 1. No hydronephrosis. 2. Possibly some minimally increased cortical echogenicity bilaterallynoted as well as some generalized cortical thinning of the left kidney. 3. Incidental 3.5 cm left ovarian cyst noted. Electronically Signed By: RUBIO ACEVES MD 11/24/16751 Dictated On: 11/24/16745 Interpreted By: RUBIO ACEVES MD Transcribed On: 11/24/16745 - INFCE CC: DENYS QUIJANO MD us Generic Conversion Md [facility] Final R esult documented in this encounter Visit Diagnoses Not on filedocumented in this encounter Care Teams Pulverizing And Sifting Operator Relationship Specialty Start Date End Date Hermes Ramirez III, MD [address] [facility] [address] [place] [address] PCP - General FAMILY PRACTICE 06/20/17 documented as of this encounter
--- OUTSIDE RECORDS SUMMARY | 2024-03-20 12:03 | XMS_ITS | Encounter Summary ---
Author Organization [facility] Address [address] [place] [address]. 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 [place], [place] ?? Department of Radiology ? MISHA JACKSON Ordering MD: DENYS QUIJANO MD ?? Acct: [id number] ?? : 1980 Pt Type: ADM IN ?? Sex: F Ord Site: MAIN ? Study Date Accession # Procedure Code Procedure ?? 11/24/16 CXR2V XR Chest 2 View ? Signed ? Examination: XR Chest 2 View ? Exam time: 11/24/2016 10:35 AM ? Clinical history: Cough. Diarrhea for one week. Active smoker. Chronic immunosuppressive ?? therapy. Past medical history of liver transplant. ? Comparison: No prior chest x-ray. 09/20/2016 CT abdomen and pelvis. ? Technique: Upright PA and lateral views ? Findings: There is mild enlargement cardiac silhouette. Pulmonary vasculature is within normal ?? limits. No evidence of focal pulmonary infiltrative changes or atelectasis. No evidence of ?? pleural effusions. No evidence of pneumothorax or pneumomediastinum. There are linear gas ?? regions projecting within the anterior aspect of the liver. Compared to the prior CT study, ?? these areas would be consistent with pneumobilia. ? IMPRESSION: ? 1. Mild enlargement cardiac silhouette. ?? 2. No radiographic evidence of active chest disease. ?? 3. Pneumobilia. ? Electronically Signed By: EUGENIE STREETER MD 11/24/16 1120 ? Dictated On: 11/24/16 1117 ?? Interpreted By: EUGENIE STREETER MD ?? Transcribed On: 11/24/16 1117 - INFCE ? CC: ? DENYS QUIJANO MD Procedure Note Lazara Mendoza MD - 01/10/2018 [place], [place] Department of Radiology MISHA JACKSON MD: DENYS QUIJANO MD Acct: [id number] : 1980 Pt Type: ADM IN Sex: F Ord Site: MAIN Study Date Accession # Procedure Code Procedure 11/24/169066132-2252 CXR2V XR Chest 2 View Signed Examination: XR Chest 2 View Exam time: 11/24/2016 10:35 AM Clinical history: Cough. Diarrhea for one week. Active smoker. Chronicimmunosuppressive therapy. Past medical history of liver transplant. Comparison: No prior chest x-ray. 09/20/2016 CT abdomen and pelvis. Technique: Upright PA and lateral views Findings: There is mild enlargement cardiac silhouette. Pulmonaryvasculature is within normal limits. No evidence of focal pulmonary infiltrative changes oratelectasis. No evidence of pleural effusions. No evidence of pneumothorax or pneumomediastinum.There are linear gas regions projecting within the anterior aspect of the liver. Compared tothe prior CT study, these areas would be consistent with pneumobilia. IMPRESSION: 1. Mild enlargement cardiac silhouette. 2. No radiographic evidence of active chest disease. 3. Pneumobilia. Electronically Signed By: EUGENIE STREETER MD 11/24/16 1120 Dictated On: 11/24/16 1117 Interpreted By: EUGENIE STREETER MD Transcribed On: 11/24/16 1117 - INFCE CC: DENYS QUIJANO MD us Generic Conversion Md [facility] Final R esult documented in this encounter Visit Diagnoses Not on filedocumented in this encounter Care Teams Junior Oracle Dba Relationship Specialty Start Date End Date Hermes Ramirez III, MD [address] [facility] [address] [place] [address] PCP - General FAMILY PRACTICE 06/20/17 documented as of this encounter
--- OUTSIDE RECORDS SUMMARY | 2024-03-20 12:03 | XMS_ITS | Encounter Summary ---
Author Organization [facility] Address [address] [place] [address]. 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 Gender Identity Not on file Sexual Orientation Not on file documented as of this encounter Plan of Treatment Not on file documented as of this encounter Procedures Procedure Name Priority Date/Time Associated Diagnosis Comments VITAMIN B-12 TIMED 11/25/2016 6:13 AM CDT documented in this encounter Results * VITAMIN B-12 (11/25/2016 6:13 AM CDT) VITAMIN B12 S/P/B 285 213 - 816 PG/ML 11/25/2016 11:36 AM CDT [facility] SERUM SPECIMEN / Unknown 11/25/2016 6:13 AM CDT 11/25/2016 5:15 AM CDT us Generic Conversion Md [facility] Final R esult [facility] [address] [place] [address], [id number] documented in this encounter Visit Diagnoses Not on filedocumented in this encounter
--- OUTSIDE RECORDS SUMMARY | 2024-03-20 12:03 | XMS_ITS | Encounter Summary ---
Author Organization [facility] Address [address] [place] [address]. 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 Department of Laboratory Medicine [address] [place] [address] , extension [phone] Facsimile: ?? Peripheral Smear Report Patient Name: MISHA JACKSON MR#: [id number] Specimen #[id number] Source: Peripheral blood Clinical History: The patient is a 36-year-old female. ??Peripheral smear review is performed at the request of Dr. Anaya. Final Diagnosis: PERIPHERAL BLOOD, SMEAR REVIEW: ?- PANCYTOPENIA. Diagnostic Comments: The peripheral blood shows pancytopenia with the morphologic features being nonspecific for underlying etiology of abnormal counts. ??If the underlying etiology is not clinically evident, a bone marrow aspirate and biopsy may be helpful as indicated. ?? Electronically Signed Out ? Héctor Prieto M.D. Peripheral Blood Comments: COMPLETE BLOOD COUNT RESULTS CBC WITH DIFF ??WBC * 3.0 [4.0-10.8] x10'3/uL ?RBC * 2.87 [4.10-5.40] x10'6/uL HEMOGLOBIN * 9.5 [12.0-16.0] G/DL ?HEMATOCRIT * 27.2 [36.0-47.0] % ?MCV 94.8 [78.0-100.0] FL ?MCH * 33.1 [27.0-31.0] PG ?MCHC ?? 34.9 [33.0-36.0] G/DL ??RDW ??12.3 [11.5-14.5] % ?PLATELET COUNT * 48 [150-350] x10'3/uL ?MPV * 10.8 [7.4-10.4] FL ?ABS TOTAL NEUTROPHILS * 1.54 [1.60-8.30] x10'3/uL ?ABS. LYMPHOCYTES ??1.09 [0.80-4.70] x10'3/uL ?ABS. MONOCYTES ?? 0.16 [0.00-1.50] x10'3/uL ?ABS. EOSINOPHILS ??0.21 [0.00-0.40] x10'3/uL ? ABS. BASOPHILS ??0.00 [0.00-0.20] x10'3/uL ?ABS. IMMATURE GRANS ??0.00 [0.00-0.03] x10'3/uL ?? NUCLEATED RBCS ??0.00 [0.0] x10'3/uL ? RED BLOOD CELLS: The hemoglobin is decreased (9.5 g/dL). ??The red blood cells are generally normocytic and normochromic. ??There is no significant anisocytosis. ??There is slight poikilocytosis characterized by occasional ovalocytes. ??There is no increased polychromasia. ??No nucleated red blood cells, coarse basophilic stippling, or other red blood cell inclusions are identified. ??There are no schistocytes seen. ??There is no rouleaux formation or red cell agglutination seen. WHITE BLOOD CELLS: The white blood cell count is decreased (3.0 K/cumm). ?? Neutrophils are decreased in number with normal segmentation and normal granularity. ?? There is no significant left shifted maturation. ??Lymphocytes and monocytes are normal in number and morphology. ??Eosinophils and basophils are not increased. PLATELETS: The platelet count is decreased (48 K/cumm). ??The platelets are morphologically normal. Signed Out: 11/25/2016 [facility] [employer] CONVERSION 11/24/2016 11/24/2016 Narrative [facility] [employer] CONVERSION - 11/25/2016 8:05 AM CDT Result Communication: No patient communication needed at this time us Generic Conversion Md MENDOZA PATHOLOGY/CYTOLOGY [place] Final Result [facility] [employer] CONVERSION documented in this encounter Visit Diagnoses Not on filedocumented in this encounter Care Teams 8Th Grade Teacher Relationship Specialty Start Date End Date Hermes Ramirez III, MD [address] [facility] [address] [place] [address] PCP - General FAMILY PRACTICE 06/20/17 documented as of this encounter
--- OUTSIDE RECORDS SUMMARY | 2024-03-20 12:04 | XMS_ITS | Encounter Summary ---
Author Organization [facility] Address [address] [place] [address]. 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
--- OUTSIDE RECORDS SUMMARY | 2024-03-20 12:04 | XMS_ITS | Encounter Summary ---
Author Organization [facility] Address [address] [place] [address]. [place], [place] [address] [place] [address] Care Team Providers Care Cook Soup Name Role Phone Ashley ZUNIGA MD, Hermes Perez Primary Care Provid er Encounter Details Date Type Department Care Team (Late st Contact Info) Description 10/24/2016 Abstract [facility] Medical Group Gastroenterology - [place] 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 Gender Identity Not on file Sexual Orientation Not on file documented as of this encounter Last Filed Vital Signs Vital Sign Reading Time Taken Comments Blood Pressure 122/78 10/24/2016 1:47 PM CDT Pulse 83 10/24/2016 1:47 PM CDT Temperature - - Respiratory Rate - - Oxygen Saturation - - Inhaled Oxygen Concentration - - Weight 65.3 kg (144 lb) 10/24/2016 1:47 PM CDT Height 157.5 cm (5' 2 ) 10/24/2016 1:47 PM CDT Body Mass Index 26.34 10/24/2016 1:47 PM CDT documented in this encounter Progress Notes * Valentín Crum MD - 10/24/2016 1:00 PM CDT Reason For Visit New Patient Visit Referred By / Reason Patient was referred by Primary Care Physician Name: Dr. Antoinette Ramirez Reason: Hospital f/u pancreatitis and ulcers. 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 The patient has been followed at [facility] for a number of years. Her last visit there was 4 years ago. She is continued taking the Prograf 4 mg twice daily. The patient was hospitalized on September 20 of this year secondary to an episode of pancreatitis. While the patient rarely drinks any alcohol, the day before this episode she did do 10 Jell-O shots and developed pancreatitis. She also is complaining of epigastric pain nausea and vomiting and underwent an upper GI endoscopy. There was evidence of a superficial gastric ulcer or erosion. The biopsies were negative for H. pylori. There was no evidence of malignancy. The patient was put on treatment with Carafate, Protonix and sodium bicarbonate. She stopped the sodium bicarbonate due to lower extremity swelling. She is continue taking the Carafate 3 times a day and Protonix once daily. It was noted that during the hospitalization her tacrolimus levels were elevated. The patient denies any further episodes of nausea, vomiting or significant abdominal pains. The patient states she does not wish to follow up at [facility] secondary to the distance she has to travel and the fact that her mother at that hospital earlier this year secondary to metastatic liver cancer. Review of Systems See HPI for pertinent positives. Constitutional: negative. Head and Face: negative. Eyes: negative. ENT: negative. Cardiovascular: negative. Respiratory: negative. Gastrointestinal: negative. Genitourinary: negative. Musculoskeletal: diffuse joint pain. Psychiatric: anxiety. Hematologic and Lymphatic: negative. Neurological Negative. Endocrine Negative. Active Problems 1. Abdominal pain (789.00) (R10.9) 2. Acute pharyngitis (462) (J02.9) 3. Anxiety (300.00) (F41.9) 4. Aphthous ulcer (528.2) (K12.0) 5. Chronic kidney disease (585.9) (N18.9) 6. Oral thrush (112.0) (B37.0) 7. Pancreatitis (577.0) (K85.90) Past Medical History 1. History of Acute [...] alcohol consumption (V49.89) (Z78.9) Current Meds 1. Carafate 1 GM Oral Tablet; Therapy: (Recorded:[id number]) to Recorded Dispense: 0 Days ; #: Sufficient TABS; Refill: 0; BHAVANA = N; Record; Last Updated By: Jennifer Gordon; 10/24/2016 1:47:13 PM 2. Prograf 1 MG Oral Capsule; TAKE 4 MG Every twelve hours; Therapy: (Recorded:[id number]) to Recorded Dispense: 0 Days ; #: Sufficient CAPS; Refill: 0; BHAVANA = N; Record; Last Updated By: Nakita Arciniega; 09/02/2010 11:01:06 AM 3. Protonix 20 MG Oral Tablet Delayed Release; Therapy: (Recorded:[id number]) to Recorded Dispense: 0 Days ; #: Sufficient TBEC; Refill: 0; BHAVANA = N; Record; Last Updated By: Jennifer Gordon; 10/24/2016 1:47:13 PM 4. Sodium Bicarbonate 325 MG Oral Tablet; Therapy: (Recorded:[id number]) to Recorded Dispense: 0 Days ; #: Sufficient TABS; Refill: 0; BHAVANA = N; Record; Last Updated By: Jennifer Gordon; 10/24/2016 1:47:13 PM Allergies 1. Aspirin TABS Recorded By: Emily Pichardo; 05/19/2010 6:39:28 PM 2. Erythromycin Derivatives Recorded By: Emily Pichardo; 05/19/2010 6:39:28 PM Vitals Recorded: [id number] 01:47PM Heart Rate 83 Systolic 122 Diastolic 78 O2 Saturation 99 Height 5 ft 2 in Weight 144 lb BMI Calculated 26.34 BSA Calculated 1.66 Physical Exam Constitutional General appearance: No acute distress, well appearing and well nourished. Head and Face Head and face: Normal. Eyes Conjunctiva and lids: No swelling, erythema or discharge. Pupils and irises: Equal, round, reactive to light. Ears, Nose, Mouth, and Throat Oropharynx: Normal with no erythema, edema, exudate or lesions. Pulmonary Respiratory effort: No increased work of breathing or signs of respiratory distress. Auscultation of lungs: Clear to auscultation. Cardiovascular Auscultation of heart: Normal rate and rhythm, normal S1 and S2, no murmurs. Peripheral vascular exam: Normal. Examination of extremities for edema and/or varicosities: Normal. Abdomen Patient defers rectal exam. Abdomen: Non-tender, no masses. well healed scar. Liver and spleen: No hepatomegaly or splenomegaly. Examination for hernias: No hernia appreciated. Musculoskeletal Gait and station: Normal. Neurologic Cranial nerves: Cranial nerves II-XII intact. Psychiatric Orientation to person, place, and time: Normal. Assessment 1. Transplanted liver (V42.7) (Z94.4) 2. Pancreatitis (577.0) (K85.90) 3. Abdominal pain (789.00) (R10.9) 4. Gastric ulcer (531.90) (K25.9) Plan Abdominal pain, Pancreatitis, Transplanted liver 1. CBC with Diff; Status:Hold For - Manual Activation; Requested for:24Oct2016; Perform:[facility]; Due:[id number];Ordered; For:Abdominal pain, Pancreatitis, Transplanted liver;Ordered By:Valentín Crum; 2. CMP (Comprehensive Metabolic Profile); Status:Hold For - Manual Activation; Requested for:24Oct2016; Perform:[facility]; Due:[id number];Ordered; For:Abdominal pain, Pancreatitis, Transplanted liver;Ordered By:Valentín Crum; 3. Lipase; Status:Hold For - Manual Activation; Requested for:24Oct2016; Perform:[facility]; Due:07Piz8962;Ordered; For:Abdominal pain, Pancreatitis, Transplanted liver;Ordered By:Valentín Crum; 4. Tacrolimus; Status:Hold For - Manual Activation; Requested for:[id number]; Perform: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 The patient had elevated levels and prior hospitalization and needs to have this rechecked to see if the levels are more appropriate at this time. The patient should followup with the liver transplant center at [facility] where she had a prior transplant. She also recently had an episode of pancreatitis secondary to alcohol use but states she will go longer drink. She also had a small gastric ulcer which may have been secondary to the alcohol. The patient has improved with the use of Carafate and Protonix. I would recommend we check a CBC, CMP, lipase and tacrolimus levels. Further recommendations will be made following results of labs Signatures Electronically signed by : Valentín Crum M.D.; Oct 24 2016 2:55PM CARPENTER WOODEN TANK ERECTING (Author) documented in this encounter Plan of Treatment Not on file documented as of this encounter Visit Diagnoses Not on filedocumented in this encounter Care Teams Cook Soup Relationship Specialty Start Date End Date Hermes Ramirez III, MD [address] [facility] [address] [place] [address] PCP - General FAMILY PRACTICE 06/20/17 documented as of this encounter
--- OUTSIDE RECORDS SUMMARY | 2024-03-20 12:04 | XMS_ITS | Encounter Summary ---
Author Organization [facility] Address [address] [place] [address]. 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 Gender Identity Not on file Sexual Orientation Not on file documented as of this encounter Plan of Treatment Not on file documented as of this encounter Procedures Procedure Name Priority Date/Time Associated Diagnosis Comments SODIUM URINE RANDOM Nurse Collected Priority 11/24/2016 2:20 PM CDT documented in this encounter Results * SODIUM URINE RANDOM (11/24/2016 2:20 PM CDT) NA RANDOM (U) 68 MMOL/L 11/24/2016 3:09 PM CDT [facility] URINE SPECIMEN / Unknown 11/24/2016 2:20 PM CDT 11/24/2016 2:28 PM CDT us Generic Conversion Md MENDOZA URINE ORDERABLES Final Result [facility] [address] [place], [place] [address] [phone] [id number] documented in this encounter Visit Diagnoses Not on filedocumented in this encounter
--- OUTSIDE RECORDS SUMMARY | 2024-03-20 12:04 | XMS_ITS | Encounter Summary ---
Author Organization [facility] Address [address] [place] [address]. [place], [place] [address] [place] [address] Care Team Providers Care Radar Technician Name Role Phone Ashley ZUNIGA MD, Hermes Perez Primary Care Provid er Encounter Details Date Type Department Care Team (Latest Contact Info) Description 11/16/2016 Abstract [facility] Medical Group Victor Manuel Albright MD 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 Date/Time Dictated: 11/16/2016 13:10 p.m. Transcribed Date/Time: 11/16/2016 15:13 p.m. Surgery Date: 09/21/2016 cc: Valentín B ChoLucero cade M.D. Fawwad I Zaidi, M.D. Procedure Date: 09/21/2016 Chart Document SURGEON: Victor Manuel Albright MD AUTOMATION MACHINE OPERATOR: PREOPERATIVE DIAGNOSES: 1.Reflux esophagitis with possible eosinophilic esophagitis. 2.Hiatal hernia. 3.Superficial gastric ulcers. 4.Ulcers of the second portion of the duodenum bulb. OPERATION: EGD. POSTOPERATIVE DIAGNOSES: 1.Reflux esophagitis with possible eosinophilic esophagitis. 2.Hiatal hernia. 3.Superficial gastric ulcers. 4.Ulcers of the second portion of the duodenum bulb. ANESTHESIA: Medications used were per MAC anesthesia. DESCRIPTION OF PROCEDURE: Risks and benefits were explained to the patient. Informed consent was obtained. The patient was brought to the GI endoscopy unit, placed in the left lateral decubitus position and a bite block was placed into the mouth. Then, under direct visualization, a video gastroscope was passed through the bite block from the posterior pharynx into the esophagus. Examination of the esophagus revealed ringlets suggestive of eosinophilic esophagitis. The scope was easily passed into the stomach, which revealed superficial ulcers at the antrum. The scope was retroflexed. Examination of the cardia and fundus, which revealed a small hiatal hernia. Scope was deflexed and passed through the pylorus into the duodenal bulb, which revealed superficial ulcer in the posterior duodenal bulb. Second portion of duodenum was unremarkable. Biopsies were obtained at the antrum to check for Helicobacter pylori. No other biopsies were obtained due to the patient's low platelet count. Air was suctioned and the scope was withdrawn. The patient tolerated procedure well. PLAN: Check for Helicobacter pylori. 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 Victor Manuel Albright M.D. Electronically Signed By: Victor Manuel Albright M.D. 11/29/2016 02:40 P Victor Manuel N Natalee, M.D. documented in this encounter Plan of Treatment Not on file documented as of this encounter Visit Diagnoses Not on filedocumented in this encounter Care Teams Radar Technician Relationship Specialty Start Date End Date Hermes Ramirez III, MD [address] [facility] [address] [place] [phone] PCP - General FAMILY PRACTICE 06/20/17 documented as of this encounter
--- OUTSIDE RECORDS SUMMARY | 2024-03-20 12:04 | XMS_ITS | Encounter Summary ---
Author Organization [facility] Address [address] [place] [address]. 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 Gender Identity Not on file Sexual Orientation Not on file documented as of this encounter Plan of Treatment Not on file documented as of this encounter Procedures Procedure Name Priority Date/Time Associated Diagnosis Comments DRUG SCREEN RAPID Nurse Collected Priority 11/24/2016 11:20 AM CDT documented in this encounter Results * (ABNORMAL) DRUG SCREEN RAPID (11/24/2016 11:20 AM CDT) PHENCYCLIDINE PCP (U) NEGATIVE NEGATIVE 11/24/2016 12:10 PM CDT [facility] BENZODIAZEPINES SCREEN (U) NEGATIVE NEGATIVE 11/24/2016 12:10 PM CDT [facility] COCAINE METABOLITES (U) NEGATIVE NEGATIVE 11/24/2016 12:10 PM CDT [facility] AMPHETAMINE (U) NEGATIVE NEGATIVE 7 12:10 PM CDT [facility] CANNABINOIDS SCREEN (U) NEGATIVE NEGATIVE 11/24/2016 12:10 PM CDT [facility] OPIATE SCREEN (U) POSITIVE-NOT CONFIRMED(A) NEGATIVE 11/24/2016 12:17 PM T [facility] Comment: POSITIVE SCREEN RESULT, IF CONFIRMATION DESIRED PLEASE CONTACT LAB WITHIN ONE WEEK. BARBITURATES SCREEN (U) NEGATIVE NEGATIVE 11/24/2016 12:10 PM CDT [facility] TRICYCLIC ANTIDEPRESSANT SCREEN (U) NEGATIVE NEGATIVE 11/24/2016 12:10 PM T [facility] URINE TOX COMMENT Unconfirmed screening results are to be used only for medical purposes. 11/24/2016 11:05 AM T [facility] CUTOFF CONCENTRATION (U) Cut-off Concentration for a positive result 11/24/2016 11:05 AM T [facility] Comment: Phencyclidine ? 25 ng/mL Benzodiazepines ? 300 ng/mL Cocaine ? 300 ng/mL Amphetamine ? 1000 ng/mL Cannabinoids ?50 ng/mL Opiates ? 300 ng/mL Barbiturates ?300 ng/mL TSA ? 1000 ng/mL URINE SPECIMEN / Unknown 11/24/2016 11:20 AM CDT 11/24/2016 11:38 AM CDT us Generic Conversion Md MENDOZA URINE ORDERABLES Final Result [facility] [address] [place] [address], [id number] documented in this encounter Visit Diagnoses Not on filedocumented in this encounter
--- OUTSIDE RECORDS SUMMARY | 2024-03-20 12:04 | XMS_ITS | Encounter Summary ---
Author Organization [facility] Address [address] [place] [address]. 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 Gender Identity Not on file Sexual Orientation Not on file documented as of this encounter Plan of Treatment Not on file documented as of this encounter Procedures Procedure Name Priority Date/Time Associated Diagnosis Comments COMPREHENSIVE METABOLIC PANEL Routine 11/24/2016 10:53 AM CDT documented in this encounter Results * (ABNORMAL) COMPREHENSIVE METABOLIC PANEL (11/24/2016 10:53 AM CDT) SODIUM S/P/B 137 135 - 147 MMOL/L 11/24/2016 10:55 AM CDT [facility] POTASSIUM S/P/B 4.8 3.5 - 5.0 MMOL/L 11/24/2016 10:55 AM CDT [facility] CHLORIDE S/P/B 114(H) 98 - 107 MMOL/L 11/24/2016 10:55 AM CDT [facility] CO2 18.8(L) 22 - 29 MMOL/L 11/24/2016 10:55 AM [facility] GLUCOSE 90 70 - 109 MG/DL 11/24/2016 10:55 AM [facility] BUN 30(H) 7 - 19 MG/DL 11/24/2016 10:55 AM [facility] CREATININE S/P/B 3.84(H) 0.60 - 1.10 MG/DL 11/24/2016 10:55 AM [facility] CALCIUM S/P/B 8.4 8.4 - 10.2 MG/DL 11/24/2016 10:55 AM [facility] BILIRUBIN TOTAL S/P/B 0.5 0.2 - 1.2 MG/DL 11/24/2016 10:55 AM [facility] ALKALINE PHOSPHATASE S/P/B 193(H) 37 - 98 U/L 11/24/2016 10:55 AM [facility] AST 18 5 - 35 U/L 11/24/2016 10:55 AM [facility] ALT 11 0 - 55 U/L 11/24/2016 10:55 AM [facility] TOTAL PROTEIN S/P/B 6.0 6.0 - 8.3 G/DL 11/24/2016 10:55 AM [facility] ALBUMIN S/P/B 3.4 3.4 - 4.9 G/DL 11/24/2016 10:55 AM [facility] ANION GAP 4.2 MMOL/L 11/24/2016 10:55 AM [facility] OSMOLALITY (CALC) 280 MOSM/KG 11/24/2016 10:55 AM [facility] EGFR NON-AFR. AMER. 13(L) >60 ML/MIN/1.7 3 M2 11/24/2016 10:55 AM [facility] EGFR AFR. AMER. 16(L) >60 ML/MIN/1.7 3 M2 11/24/2016 10:55 AM CDT [facility] PLASMA SPECIMEN / Unknown 11/24/2016 10:53 AM CDT 11/24/2016 9:55 AM CDT us Generic Conversion [facility] Final R esult Performing Organization Address City/State/[facility] Co de Phone Number [facility] [address] [place] [address], [id number] documented in this encounter Visit Diagnoses Not on filedocumented in this encounter
--- OUTSIDE RECORDS SUMMARY | 2024-03-20 12:04 | XMS_ITS | Encounter Summary ---
Author Organization [facility] Address [address] [place] [address]. 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 Gender Identity Not on file Sexual Orientation Not on file documented as of this encounter Plan of Treatment Not on file documented as of this encounter Procedures Procedure Name Priority Date/Time Associated Diagnosis Comments COMPREHENSIVE METABOLIC PANEL NOW 11/24/2016 7:56 AM CDT documented in this encounter Results * (ABNORMAL) COMPREHENSIVE METABOLIC PANEL (11/24/2016 7:56 AM CDT) SODIUM S/P/B 136 135 - 147 MMOL/L 11/24/2016 7:35 AM CDT [facility] POTASSIUM S/P/B 5.5(H) 3.5 - 5.0 MMOL/L 11/24/2016 7:35 AM CDT [facility] Comment:SLIGHT HEMOLYSIS, RE SULT MAY BE AFFECTED. CHLORIDE S/P/B 116(H) 98 - 107 MMOL/L 11/24/2016 7:35 AM CDT [facility] CO2 12.5(L) 22 - 29 MMOL/L 11/24/2016 7:35 AM T [facility] GLUCOSE 94 70 - 109 MG/DL 11/24/2016 7:35 AM [facility] BUN 33(H) 7 - 19 MG/DL 11/24/2016 7:35 AM [facility] CREATININE S/P/B 3.86(H) 0.60 - 1.10 MG/DL 11/24/2016 7:35 AM T [facility] CALCIUM S/P/B 8.1(L) 8.4 - 10.2 MG/DL 11/24/2016 7:35 AM [facility] BILIRUBIN TOTAL S/P/B 0.5 0.2 - 1.2 MG/DL 11/24/2016 7:35 AM [facility] ALKALINE PHOSPHATASE S/P/B 179(H) 37 - 98 U/L 11/24/2016 7:35 AM T [facility] AST 19 5 - 35 U/L 11/24/2016 7:35 AM [facility] ALT 11 0 - 55 U/L 11/24/2016 7:35 AM [facility] TOTAL PROTEIN S/P/B 5.5(L) 6.0 - 8.3 G/DL 11/24/2016 7:35 AM [facility] ALBUMIN S/P/B 3.2(L) 3.4 - 4.9 G/DL 11/24/2016 7:35 AM [facility] ANION GAP 7.5 MMOL/L 11/24/2016 7:35 AM [facility] OSMOLALITY (CALC) 279 MOSM/KG 11/24/2016 7:35 AM [facility] EGFR NON-AFR. AMER. 13(L) >60 ML/MIN/1.7 3 M2 11/24/2016 7:35 AM T [facility] EGFR AFR. AMER. 16(L) >60 ML/MIN/1.7 3 M2 11/24/2016 7:35 AM CDT [facility] PLASMA SPECIMEN / Unknown 11/24/2016 7:56 AM CDT 11/24/2016 6:57 AM CDT us Generic Conversion [facility] Final R esult [facility] [address] [place] [phone] [id number] documented in this encounter Visit Diagnoses Not on filedocumented in this encounter
--- OUTSIDE RECORDS SUMMARY | 2024-03-20 12:04 | XMS_ITS | Encounter Summary ---
Author Organization [facility] Address [address] [place] [address]. 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 Gender Identity Not on file Sexual Orientation Not on file documented as of this encounter Plan of Treatment Not on file documented as of this encounter Procedures Procedure Name Priority Date/Time Associated Diagnosis Comments UREA NITROGEN URINE RANDOM Nurse Collected Priority 11/24/2016 2:20 PM CDT documented in this encounter Results * UREA NITROGEN URINE RANDOM (11/24/2016 2:20 PM CDT) UREA NITROGEN (U) 217 MG/DL 11/24/2016 3:09 PM CDT [facility] URINE SPECIMEN / Unknown 11/24/2016 2:20 PM CDT 11/24/2016 2:28 PM CDT us Generic Conversion Md [facility] URINE ORDERABLES Final Result [facility] [address] [place] [address], [place] [phone] [id number] documented in this encounter Visit Diagnoses Not on filedocumented in this encounter
--- OUTSIDE RECORDS SUMMARY | 2024-03-20 12:04 | XMS_ITS | Encounter Summary ---
Author Organization [facility] Address [address] [place] [address]. 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 Gender Identity Not on file Sexual Orientation Not on file documented as of this encounter Plan of Treatment Not on file documented as of this encounter Procedures Procedure Name Priority Date/Time Associated Diagnosis Comments POTASSIUM URINE RANDOM Nurse Collected Priority 11/24/2016 2:20 PM CDT documented in this encounter Results * POTASSIUM URINE RANDOM (11/24/2016 2:20 PM CDT) POTASSIUM (U) 19.4 MMOL/L 11/24/2016 3:09 PM CDT [facility] URINE SPECIMEN / Unknown 11/24/2016 2:20 PM CDT 11/24/2016 2:28 PM CDT us Generic Conversion Md [facility] URINE ORDERABLES Final Result [facility] [address] [place] [address], [place] [phone] [id number] documented in this encounter Visit Diagnoses Not on filedocumented in this encounter
--- OUTSIDE RECORDS SUMMARY | 2024-03-20 12:04 | XMS_ITS | Encounter Summary ---
Author Organization [facility] Address [address] [place] [address]. [place] [address] [place] [address] Care Team Providers Care Public Area Supervisor Name Role Phone Unavailable Primary Care Provider Unavailabl e Encounter Details Date Type Department Care Team (Late st Contact Info) Description 11/24/2016 Orders [place] [address] , Generic Conversion, Social History Tobacco Use [...] Procedure Name Priority Date/Time Associated Diagnosis Comments CREATININE URINE RANDOM Nurse Collected Priority 11/24/2016 2:20 PM CDT documented in this encounter Results * CREATININE URINE RANDOM (11/24/2016 2:20 PM CDT) CREATININE (U) 49.2 MG/DL 11/24/2016 3:09 PM CDT [facility] URINE SPECIMEN / Unknown 11/24/2016 2:20 PM CDT 11/24/2016 2:28 PM CDT us Generic Conversion Md [facility] URINE ORDERABLES Final Result [facility] [address] [place] [address], [place] [phone] [id number] documented in this encounter Visit Diagnoses Not on filedocumented in this encounter
--- OUTSIDE RECORDS SUMMARY | 2024-03-20 12:04 | XMS_ITS | Encounter Summary ---
Author Organization [facility] Address [address] [place] [address]. 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 Gender Identity Not on file Sexual Orientation Not on file documented as of this encounter Plan of Treatment Not on file documented as of this encounter Procedures Procedure Name Priority Date/Time Associated Diagnosis Comments CBC W/DIFF AUTOMATED NOW 11/24/2016 7:56 AM CDT documented in this encounter Results * (ABNORMAL) CBC W/DIFF AUTOMATED (11/24/2016 7:56 AM CDT) WBC 2.5(L) 4.0 - 10.8 x10'3/uL 11/24/2016 7:08 AM CDT [facility] RBC 2.76(L) 4.10 - 5.40 x10'6/uL 11/24/2016 7:08 AM CDT [facility] HGB 9.3(L) 12.0 - 16.0 G/DL 11/24/2016 7:08 AM CDT [facility] HCT 26.6(L) 36.0 - 47.0 % 11/24/2016 7:08 AM CDT [facility] MCV 96.4 78.0 - 100.0 FL 11/24/2016 7:08 AM CDT [facility] MCH 33.7(H) 27.0 - 31.0 PG 11/24/2016 7:08 AM CDT [facility] MCHC 35.0 33.0 - 36.0 G/DL 11/24/2016 7:08 AM CDT [facility] RDW 12.5 11.5 - 14.5 % 11/24/2016 7:08 AM CDT [facility] PLT 40(L) 150 - 350 x10'3/uL 11/24/2016 7:08 AM CDT [facility] MPV 11.6(H) 7.4 - 10.4 FL 11/24/2016 7:08 AM CDT [facility] ABS. NEUTROPHILS TOTAL 1.38(L) 1.60 - 8.30 x10'3/uL 11/24/2016 7:51 AM CDT [facility] ABS. NEUTROPHILS CALCULATED 1.38(L) 1.60 - 7.30 x10'3/uL 11/24/2016 7:51 AM CDT [facility] ABS. LYMPHOCYTES 0.85 0.80 - 4.70 x10'3/uL 11/24/2016 7:51 AM CDT [facility] ABS. MONOCYTES 0.15 0.00 - 1.50 x10'3/uL 11/24/2016 7:51 AM CDT [facility] ABS. EOSINOPHILS 0.13 0.00 - 0.40 x10'3/uL 11/24/2016 7:51 AM CDT [facility] ABS. BASOPHILS 0.00 0.00 - 0.20 x10'3/uL 11/24/2016 7:51 AM CDT [facility] ABS. NUCLEATED RBC'S 0.00 0.0 x10'3/uL 11/24/2016 7:51 AM CDT [facility] RBC MORPHOLOGY POIKILOCYTOSIS 2016 7:51 AM CDT [facility] Comment: SLIGHT OVALOCYTES TEARDROP CELLS PLT MORPH. LOW 11/24/2016 7:51 AM CDT [facility] PLASMA SPECIMEN / Unknown 11/24/2016 7:56 AM CDT 11/24/2016 6:57 AM CDT us Generic Conversion [facility] Final R esult [facility] [address] [place] [address], [place] [phone] documented in this encounter Visit Diagnoses Not on filedocumented in this encounter
--- OUTSIDE RECORDS SUMMARY | 2024-03-20 12:04 | XMS_ITS | Encounter Summary ---
Author Organization [facility] Address [address] [place] [address]. 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 Optimal blood drug levels are influenced by type of transplant, patient response, time post- transplant, co-administration of other drugs, and drug formulation. The following trough range is a suggested guideline: ? 5.0-20.0 mcg/L Test Performed by Viraj Greer, [facility], [address] [place], [place] Héctor Avalos M.D., Ph.D., Director of Laboratories , [facility] [id number] WHOLE BLOOD SPECIMEN / Unknown 11/24/2016 8:54 PM CDT 11/24/2016 7:56 PM CDT us Generic Conversion [facility] Final R esult [facility] [address] [place], [place] , [place] [phone] documented in this encounter Visit Diagnoses Not on filedocumented in this encounter
--- OUTSIDE RECORDS SUMMARY | 2024-03-20 12:04 | XMS_ITS | Encounter Summary ---
Author Organization [facility] Address [address] [place] [address]. [place] [address] [place] [address] Care Team Providers Care Major Account Representative Name Role Phone Unavailable Primary Care Provider Unavailabl e Encounter Details Date Type Department Care Team (Late st Contact Info) Description 11/24/2016 Orders Only [place] [address] , Generic Conversion, Social History Tobacco Use Types Packs/Day Years Used Date Smoking Tobacco: Never Assessed Comments Unknown Sex and Gender Information Value Date Recorded Sex Assigned at Not on file Legal Sex Female 9:15 PM IN[employer] Gender Identity Not on file Sexual Orientation Not on file documented as of this encounter Plan of Treatment Not on file documented as of this encounter Procedures Procedure Name Priority Date/Time Associated Diagnosis Comments CBC W/DIFF AUTOMATED TIMED 11/24/2016 10:53 AM CDT documented in this encounter Results * (ABNORMAL) CBC W/DIFF AUTOMATED (11/24/2016 10:53 AM CDT) WBC 3.0(L) 4.0 - 10.8 x10'3/uL 11/24/2016 10:13 AM CDT [facility] RBC 2.87(L) 4.10 - 5.40 x10'6/uL 11/24/2016 10:13 AM CDT [facility] HGB 9.5(L) 12.0 - 16.0 G/DL 11/24/2016 10:13 AM CDT [facility] HCT 27.2(L) 36.0 - 47.0 % 11/24/2016 10:13 AM CDT [facility] MCV 94.8 78.0 - 100.0 FL 11/24/2016 10:13 AM CDT [facility] MCH 33.1(H) 27.0 - 31.0 PG 11/24/2016 10:13 AM CDT [facility] MCHC 34.9 33.0 - 36.0 G/DL 11/24/2016 10:13 AM CDT [facility] RDW 12.3 11.5 - 14.5 % 11/24/2016 10:13 AM CDT [facility] PLT 48(L) 150 - 350 x10'3/uL 11/24/2016 10:13 AM T [facility] MPV 10.8(H) 7.4 - 10.4 FL 11/24/2016 10:13 AM CDT [facility] ABS. NEUTROPHILS TOTAL 1.54(L) 1.60 - 8.30 x10'3/uL 11/24/2016 10:13 AM CDT [facility] ABS. LYMPHOCYTES 1.09 0.80 - 4.70 x10'3/uL 11/24/2016 10:13 AM CDT [facility] ABS. MONOCYTES 0.16 0.00 - 1.50 x10'3/uL 11/24/2016 10:13 AM CDT [facility] ABS. EOSINOPHILS 0.21 0.00 - 0.40 x10'3/uL 11/24/2016 10:13 AM CDT [facility] ABS. BASOPHILS 0.00 0.00 - 0.20 x10'3/uL 11/24/2016 10:13 AM CDT [facility] ABS. IMMATURE GRANULOCYTES 0.00 0.00 - 0.03 x10'3/uL 11/24/2016 10:13 AM CDT [facility] ABS. NUCLEATED RBC'S 0.00 0.0 x10'3/uL 11/24/2016 10:13 AM CDT [facility] PLASMA SPECIMEN / Unknown 11/24/2016 10:53 AM CDT 11/24/2016 9:55 AM CDT us Generic Conversion [facility] Final R esult Performing Organization Address City/State/[facility] Co de Phone Number [facility] [address] [place] [address], [phone] documented in this encounter Visit Diagnoses Not on filedocumented in this encounter
--- OUTSIDE RECORDS SUMMARY | 2024-03-20 12:04 | XMS_ITS | Encounter Summary ---
Author Organization [facility] Address [address] [place] [address]. 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 Gender Identity Not on file Sexual Orientation Not on file documented as of this encounter Plan of Treatment Not on file documented as of this encounter Procedures Procedure Name Priority Date/Time Associated Diagnosis Comments CHLORIDE URINE RANDOM Nurse Collected Priority 11/24/2016 2:20 PM CDT documented in this encounter Results * CHLORIDE URINE RANDOM (11/24/2016 2:20 PM CDT) CHLORIDE RANDOM (U) 56 MMOL/L 11/24/2016 3:09 PM CDT [facility] URINE SPECIMEN / Unknown 11/24/2016 2:20 PM CDT 11/24/2016 2:28 PM CDT us Generic Conversion Md [facility] URINE ORDERABLES Final Result [facility] [address] [place], [place] [address] [phone] documented in this encounter Visit Diagnoses Not on filedocumented in this encounter
--- OUTSIDE RECORDS SUMMARY | 2024-03-20 12:04 | XMS_ITS | Encounter Summary ---
Author Organization [facility] Address [address] [place] [address]. 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 Gender Identity Not on file Sexual Orientation Not on file documented as of this encounter Plan of Treatment Not on file documented as of this encounter Procedures Procedure Name Priority Date/Time Associated Diagnosis Comments BLOOD SMEAR INTERPRETATION BY TIMED 11/24/2016 10:53 AM CDT documented in this encounter Results * BLOOD SMEAR INTERPRETATION BY (11/24/2016 10:53 AM CDT) CBC PATHOLOGIST COMMENT SENT TO PATHOLOGIST FOR REVIEW 11/24/2016 10:11 AM CDT [facility] NOT REQUIRED 11/24/2016 10:5 3 AM CDT 11/24/2016 9:55 AM CDT us Generic Conversion [facility] Final R esult [facility] [address] [place], [place] [address] [phone] documented in this encounter Visit Diagnoses Not on filedocumented in this encounter
--- OUTSIDE RECORDS SUMMARY | 2024-03-20 12:05 | XMS_ITS | Encounter Summary ---
Author Organization [facility] Address [address] [place] [address]. 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
--- OUTSIDE RECORDS SUMMARY | 2024-03-20 12:05 | XMS_ITS | Encounter Summary ---
Author Organization [facility] Address [address] [place] [address]. [place], [place] [address] [place] [address] Care Team Providers Care Accuracy Expert Name Role Phone Ashley ZUNIGA MD, Hermes Perez Primary Care Provid er Encounter Details Date Type Department Care Team (Latest Contact Info) Description 09/22/2016 Abstract [facility] Medical Group Social History Tobacco Use Types Packs/Day Years Used Date Smoking Tobacco: Never Assessed Comments Unknown Sex and Gender Information Value Date Recorded Sex Assigned at Not on file Legal Sex Female 9:15 PM EPIC DIRECTOR Gender Identity Not on file Sexual Orientation Not on file documented as of this encounter Plan of Treatment Not on file documented as of this encounter Visit Diagnoses Not on filedocumented in this encounter Care Teams Accuracy Expert Relationship Specialty Start Date End Date Hermes Ramirez III, MD [address] [facility] [address] [place] [address] PCP - General FAMILY PRACTICE 06/20/17 documented as of this encounter
--- OUTSIDE RECORDS SUMMARY | 2024-03-20 12:05 | XMS_ITS | Encounter Summary ---
Author Organization [facility] Address [address] [place] [address]. 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 RBC 2.38(L) 4.10 - 5.40 x10'6/uL 09/23/2016 4:[address] [facility] HGB 8.1(L) 12.0 - 16.0 G/DL 09/23/2016 4:[address] [facility] HCT 22.7(L) 36.0 - 47.0 % 09/23/2016 4:[address] [facility] MCV 95.4 78.0 - 100.0 FL 09/23/2016 4:[address] [facility] MCH 34.0(H) 27.0 - 31.0 PG 09/23/2016 4:[address] [facility] MCHC 35.7 33.0 - 36.0 G/DL 09/23/2016 4:[address] [facility] RDW 12.6 11.5 - 14.5 % 09/23/2016 4:[address] [facility] PLT 30(L) 150 - 350 x10'3/uL 09/23/2016 5:[address] [facility] MPV 12.3(H) 7.4 - 10.4 FL 09/23/2016 5:[address] [facility] ABS. NEUTROPHILS TOTAL 1.23(L) 1.60 - 8.30 x10'3/uL 09/23/2016 5:[address] [facility] ABS. NEUTROPHILS CALCULATED 1.19(L) 1.60 - 7.30 x10'3/uL 09/23/2016 5:[address] [facility] BANDS 0.02 0.00 - 1.00 x10'3/uL 09/23/2016 5:[address] [facility] ABS. LYMPHOCYTES 0.75(L) 0.80 - 4.70 x10'3/uL 09/23/2016 5:[address] [facility] ABS. MONOCYTES 0.15 0.00 - 1.50 x10'3/uL 09/23/2016 5:[address] [facility] ABS. EOSINOPHILS 0.07 0.00 - 0.40 x10'3/uL 09/23/2016 5:[address] [facility] ABS. BASOPHILS 0.00 0.00 - 0.20 x10'3/uL 09/23/2016 5:[address] [facility] ABS. METAMYELOCYTES 0.02(H) 0.00 x10'3/uL 09/23/2016 5:[address] [facility] ABS. NUCLEATED RBC'S 0.02(H) 0.0 x10'3/uL 09/23/2016 5:[address] [facility] RBC MORPHOLOGY POIKILOCYTOSIS 2016 5:[address] [facility] Comment: SLIGHT OVALOCYTES PLT MORPH. LOW 09/23/2016 5:[address] [facility] PLASMA SPECIMEN / Unknown 09/23/2016 5:30 AM CDT 09/23/2016 4:31 AM CDT us Generic Conversion Md [facility] Final R esult [facility] [address] [place] [address], [id number] documented in this encounter Visit Diagnoses Not on filedocumented in this encounter
--- OUTSIDE RECORDS SUMMARY | 2024-03-20 12:05 | XMS_ITS | Encounter Summary ---
Author Organization [facility] Address [address] [place] [address]. 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 PARTNERSHIPS Gender Identity Not on file Sexual Orientation Not on file documented as of this encounter Plan of Treatment Not on file documented as of this encounter Procedures Procedure Name Priority Date/Time Associated Diagnosis Comments POTASSIUM, SERUM TIMED 09/21/2016 8:07 PM CDT documented in this encounter Results * (ABNORMAL) POTASSIUM, SERUM (09/21/2016 8:07 PM CDT) POTASSIUM S/P/B 5.2(H) 3.5 - 5.0 MMOL/L 09/21/2016 7:28 PM CDT [facility] SERUM OR PLASMA SPECIMEN / Unknown 09/21/2016 8:07 PM CDT 09/21/2016 7:08 PM CDT us Generic Conversion Md [facility] Final R esult [facility] [address] [place] [address], [id number] documented in this encounter Visit Diagnoses Not on filedocumented in this encounter
--- OUTSIDE RECORDS SUMMARY | 2024-03-20 12:05 | XMS_ITS | Encounter Summary ---
Author Organization [facility] Address [address] [place] [address]. [place] [address] [place] [address] Care Team Providers Care Heater Operator Name Role Phone Ashley ZUNIGA MD, Hermes Primary Care Provid er Encounter Details Date Type Department Care Team (Latest Contact Info) Description 09/21/2016 Abstract [facility] Victor Manuel Albright MD 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 Department of Laboratory Medicine [address] [place] [address] , extension [phone] Facsimile: ?? Surgical Pathology Report Patient Name: MISHA JACKSON MR#: [id number] Specimen #[id number] Source: Antrum, biopsy Clinical History: Not provided. Gross Description: Received in formalin, labeled with a patient label and as antral biopsies is a 0.2 cm. piece of pink-valadez tissue. ??The specimen is entirely submitted in one cassette. Final Diagnosis: STOMACH, BIOPSY: ?- SMALL FRAGMENT OF GASTRIC ANTRAL MUCOSA WITH PATCHY MILD CHRONIC GASTRITIS WITH ?SOME FEATURES OF REACTIVE GASTROPATHY/CHEMICAL INJURY-TYPE PATTERN. ?- IMMUNOHISTOCHEMISTRY FOR HELICOBACTER PYLORI IS NEGATIVE. Electronically Signed Out ? Jamison Michelle M.D., Ph.D. Signed Out: 09/23/2016 [facility] CONVERSION 09/21/2016 09/21/2016 Narrative [facility] CONVERSION - 09/21/2016 1:31 PM CDT Result Communication: No patient communication needed at this time Victor Manuel Albright MD PATHOLOGY/CYTOLOGY ORDERABLE S Final Result [facility] CONVERSION documented in this encounter Visit Diagnoses Not on filedocumented in this encounter Care Teams Heater Operator Relationship Specialty Start Date End Date Hermes Ramirez III, MD [address] [address] PCP - General FAMILY PRACTICE 06/20/17 documented as of this encounter
--- OUTSIDE RECORDS SUMMARY | 2024-03-20 12:05 | XMS_ITS | Encounter Summary ---
Author Organization [facility] Address [address] [place] [address]. [place] [address] [place] [address] Care Team Providers Care Grain Roaster Name Role Phone Unavailable Primary Care Provider Unavailabl e Encounter Details Date Type Department Care Team (Late st Contact Info) Description 09/21/2016 Orders [place] [address] , Generic Conversion, Social History Tobacco Use Types Packs/Day Years Used Date Smoking Tobacco: Never Assessed Comments Unknown Sex and Gender Information Value Date Recorded Sex Assigned at Not on file Legal Sex Female 9:15 PM PAYMENT MANAGER Gender Identity Not on file Sexual Orientation Not on file documented as of this encounter Plan of Treatment Not on file documented as of this encounter Procedures Procedure Name Priority Date/Time Associated Diagnosis Comments OSMOLALITY, BLOOD Routine 09/21/2016 8:0 7 PM CDT documented in this encounter Results * (ABNORMAL) OSMOLALITY, BLOOD (09/21/2016 8:07 PM CDT) OSMOLALITY (S/P/B) 306(H) 285 - 295 MOSM/KG 09/21/2016 8:[address] [facility] SERUM SPECIMEN / Unknown 09/21/2016 8:07 PM CDT 09/21/2016 7:08 PM CDT us Generic Conversion Md [facility] Final R esult [facility] [address] [place] [address], [id number] documented in this encounter Visit Diagnoses Not on filedocumented in this encounter
--- OUTSIDE RECORDS SUMMARY | 2024-03-20 12:05 | XMS_ITS | Encounter Summary ---
Author Organization [facility] Address [address] [place] [address]. 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 Gender Identity Not on file Sexual Orientation Not on file documented as of this encounter Plan of Treatment Not on file documented as of this encounter Procedures Procedure Name Priority Date/Time Associated Diagnosis Comments BASIC METABOLIC PANEL TIMED 09/23/2016 5:30 AM CDT documented in this encounter Results * (ABNORMAL) BASIC METABOLIC PANEL (09/23/2016 5:30 AM CDT) SODIUM S/P/B 140 135 - 147 MMOL/L 09/23/2016 5:02 AM CDT [facility] POTASSIUM S/P/B 4.2 3.5 - 5.0 MMOL/L 09/23/2016 5:02 AM CDT [facility] CHLORIDE S/P/B 118(H) 98 - 107 MMOL/L 09/23/2016 5:02 AM CDT [facility] CO2 18.0(L) 22 - 29 MMOL/L 09/23/2016 5:02 AM CDT [facility] GLUCOSE 119(H) 70 - 109 MG/DL 09/23/2016 5:02 AM T [facility] BUN 37(H) 7 - 19 MG/DL 09/23/2016 5:02 AM CDT [facility] CREATININE S/P/B 3.47(H) 0.60 - 1.10 MG/DL 09/23/2016 5:02 AM CDT [facility] CALCIUM S/P/B 7.7(L) 8.4 - 10.2 MG/DL 09/23/2016 5:02 AM T [facility] EGFR NON-AFR. AMER. 15(L) >60 ML/MIN/1.7 3 M2 09/23/2016 5:02 AM T [facility] EGFR AFR. AMER. 18(L) >60 ML/MIN/1.7 3 M2 09/23/2016 5:02 AM T [facility] ANION GAP 4.0 MMOL/L 09/23/2016 5:02 AM T [facility] OSMOLALITY (CALC) 289 MOSM/KG 09/23/2016 5:02 AM T [facility] PLASMA SPECIMEN / Unknown 09/23/2016 5:30 AM CDT 09/23/2016 4:31 AM CDT us Generic Conversion Md [facility] Final R esult [facility] [address] [place] [address], [id number] documented in this encounter Visit Diagnoses Not on filedocumented in this encounter
--- OUTSIDE RECORDS SUMMARY | 2024-03-20 12:05 | XMS_ITS | Encounter Summary ---
Author Organization [facility] Address [address] [place] [address]. 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 [facility] ? [address] [place], [place] ??[address] ? Test Date: ?2016-09-21 Pat Name: ? MISAH JACKSON ?Department: ?? 1 ? Room: ? 0610A Gender: ? F ?Gauger Chief Delivery: ?? sg : ?1980 ? Requested By: RIVERA CHLOE Order Number: [id number] ? Reading MD: ?? Mayra Woodsonlamothu ? Measurements Intervals ?[place] ? Rate: ? 104 ?P: ?86 RI: ? 212 ?QRS: ?20 QRSD: ? 81 ? T: ?46 QT: ? 382 ? QTc: ?503 ? 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 LOW QRS VOLTAGE IN EXTREMITY LEADS ANTEROSEPTAL MYOCARDIAL INFARCTION, OF INDETERMINATE AGE Procedure Note , Lazara Conversion, - 11/12/2018 [facility] [address] [place] [address] Test Date: 2016-09-21 Pat Name: MISHA JACKSON Department: 1 Room: [facility] Gender: F Gauger Chief Delivery: : 1980 Requested By: MIGUEL CORONA Order Number: [id number] Reading MD: Lois Measurements Intervals [place] Rate: 104 P: 86 RI: 212 QRS: 20 QRSD: 81 T: 46 QT: 382 QTc: 503 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 LOW QRS VOLTAGE IN EXTREMITY LEADS ANTEROSEPTAL MYOCARDIAL INFARCTION, OF INDETERMINATE AGE us Generic Conversion Md [facility] ECG ORDERABLES Final R esult [facility] * PRV ONLY-RESTING TWELVE LEAD EKG (09/21/2016 9:31 AM CDT) 09/21/2016 9:31 AM CDT 09/21/2016 9:31 AM CDT Narrative [facility] CONVERSION - 09/21/2016 1:18 PM CDT [facility] ? [address], [place] ??[address] ? Test Date: ?2016-09-21 Pat Name: ? MISHA JACKSON ?Department: ?? 1 ? Room: ? 0610A Gender: ? Female ? Gauger Chief Delivery: ?? sg : ?1980 ? Requested By: MIGUEL GREGORIOF Order Number: [id number] ? Reading MD: ?? Mayra Alyu ? Measurements Intervals ?[place] ? Rate: ? 104 ?P: ?86 RI: ? 212 ?QRS: ?20 QRSD: ? 81 ? T: ?46 QT: ? 382 ? QTc: ?503 ? 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 LOW QRS VOLTAGE IN EXTREMITY LEADS ANTEROSEPTAL MYOCARDIAL INFARCTION, OF INDETERMINATE AGE Procedure Note , Generic Conversion, - 01/10/2018 [facility] [address] [place] [address] Test Date: 2016-09-21 Pat Name: MISHA JACKSON Department: 1 Room: [facility] Gender: Female Gauger Chief Delivery: allan : 1980 Requested By: MIGUEL CORONA Order Number: [id number] Reading MD: Lois Measurements Intervals [place] Rate: 104 P: 86 RI: 212 QRS: 20 QRSD: 81 T: 46 QT: 382 QTc: 503 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 LOW QRS VOLTAGE IN EXTREMITY LEADS ANTEROSEPTAL MYOCARDIAL INFARCTION, OF INDETERMINATE AGE us Generic Conversion Md [facility] ECHO Final R esult [facility] CON[facility] documented in this encounter Visit Diagnoses Not on filedocumented in this encounter Care Teams Information Systems Manager Relationship Specialty Start Date End Date Hermes Ramirez III, MD [address] [facility] [address] [place] [address] PCP - General FAMILY PRACTICE 06/20/17 documented as of this encounter
--- OUTSIDE RECORDS SUMMARY | 2024-03-20 12:05 | XMS_ITS | Encounter Summary ---
Author Organization [facility] Address [address] [place] [address]. 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 Gender Identity Not on file Sexual Orientation Not on file documented as of this encounter Plan of Treatment Not on file documented as of this encounter Procedures Procedure Name Priority Date/Time Associated Diagnosis Comments BASIC METABOLIC PANEL TIMED 09/22/2016 6:17 AM CDT documented in this encounter Results * (ABNORMAL) BASIC METABOLIC PANEL (09/22/2016 6:17 AM CDT) SODIUM S/P/B 137 135 - 147 MMOL/L 09/22/2016 5:47 AM CDT [facility] POTASSIUM S/P/B 4.5 3.5 - 5.0 MMOL/L 09/22/2016 5:47 AM CDT [facility] CHLORIDE S/P/B 112(H) 98 - 107 MMOL/L 09/22/2016 5:47 AM CDT [facility] CO2 17.6(L) 22 - 29 MMOL/L 09/22/2016 5:47 AM CDT [facility] GLUCOSE 146(H) 70 - 109 MG/DL 09/22/2016 5:47 AM CDT [facility] BUN 43(H) 7 - 19 MG/DL 09/22/2016 5:47 AM CDT [facility] CREATININE S/P/B 3.88(H) 0.60 - 1.10 MG/DL 09/22/2016 5:47 AM CDT [facility] CALCIUM S/P/B 8.0(L) 8.4 - 10.2 MG/DL 09/22/2016 5:47 AM CDT [facility] EGFR NON-AFR. AMER. 13(L) >60 ML/MIN/1.7 3 M2 09/22/2016 5:47 AM CDT [facility] EGFR AFR. AMER. 16(L) >60 ML/MIN/1.7 3 M2 09/22/2016 5:47 AM CDT [facility] ANION GAP 7.4 MMOL/L 09/22/2016 5:47 AM T [facility] OSMOLALITY (CALC) 287 MOSM/KG 09/22/2016 5:47 AM T [facility] PLASMA SPECIMEN / Unknown 09/22/2016 6:17 AM CDT 09/22/2016 5:18 AM CDT us Generic Conversion Md [facility] Final R esult [facility] [address] [place] [address], [id number] documented in this encounter Visit Diagnoses Not on filedocumented in this encounter
--- OUTSIDE RECORDS SUMMARY | 2024-03-20 12:05 | XMS_ITS | Encounter Summary ---
Author Organization [facility] Address [address] [place] [address]. [place] [address] [place] [address] Care Team Providers Care Helper Animal Laboratory Name Role Phone Unavailable Primary Care Provider Unavailabl e Encounter Details Date Type Department Care Team (Late st Contact Info) Description 09/21/2016 Orders Only [place] [address] , Generic Conversion, Social History Tobacco Use Types Packs/Day Years Used Date Smoking Tobacco: Never Assessed Comments Unknown Sex and Gender Information Value Date Recorded Sex Assigned at Not on file Legal Sex Female 9:15 PM BENEFITS REPRESENTATIVE Gender Identity Not on file Sexual Orientation Not on file documented as of this encounter Plan of Treatment Not on file documented as of this encounter Procedures Procedure Name Priority Date/Time Associated Diagnosis Comments POCT GLUCOSE - MAGAÑA DOCKED DEVICE Routine 09/21/2016 5:31 PM CDT documented in this encounter Results * (ABNORMAL) POCT glucose (09/21/2016 5:31 PM CDT) GLUCOSE POC 138(H) 70 - 109 09/21/2016 4:34 PM CDT [facility] ORDERS INTERFACE WHOLE BLOOD SPECIMEN / Unknown 09/21/2016 5:31 PM CDT 09/21/2016 4:34 PM CDT us Generic Conversion Md [facility] POCT ORDERABLES - DEVIC E Final Result [facility] ORDERS INTERFACE US documented in this encounter Visit Diagnoses Not on filedocumented in this encounter
--- OUTSIDE RECORDS SUMMARY | 2024-03-20 12:05 | XMS_ITS | Encounter Summary ---
Author Organization [facility] Address [address] [place] [address]. [place], [place] [address] [place] [address] Care Team Providers Care Department Administrator Name Role Phone Ashley ZUNIGA MD, Hermes Perez Primary Care [facility] er Encounter Details Date Type Department Care Team (Latest Contact Info) Description 09/22/[address] 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 [place], [place] ?? Department of Radiology ? MISHA JACKSON MD: KEYA GARCÍA MD, RES ?? Acct: [id number] ?? : 1980 Pt Type: ADM IN ?? Sex: F Ord Site: MAIN ? Study Date Accession # Procedure Code Procedure ?? 07/06/17 [id number] RENBLADB US Renal and Bladder Bi ? Signed ? Exam: Ultrasound kidneys and bladder ? No comparison ? INDICATION: Hydronephrosis. ? TECHNIQUE: Grayscale and color Doppler imaging. ? FINDINGS: The right kidney measures 9.0 cm in length and the left 9.8 cm. The kidneys are ?? mildly hyperechoic bilaterally. This could be associated with medical renal disease. No ?? findings for obstruction on either side. Blood flow to the kidneys demonstrated with Doppler. ?? Both ureteral jets seen with color Doppler. Urinary bladder is poorly distended at about 50 ?? mL. ? IMPRESSION: No urinary tract obstruction. ? Electronically Signed By: ELYSE CALHOUN MD 09/22/161750 ? Dictated On: 09/22/161747 ?? Interpreted By: ELYSE CALHOUN MD ?? Transcribed On: 09/22/161747 - [facility] ? CC: ? KEYA GARCÍA MD, RES Procedure Note Lazara Mendoza MD - 01/10/2018 [place], [place] Department of Radiology MISHA JACKSON Ordering MD: KEYA GARCÍA MD, RES Acct: [id number] : 1980 Pt Type: ADM IN Sex: F Ord Site: MAIN Study Date Accession # Procedure Code Procedure 09/22/16 RENBLADB US Renal and Bladder Bi Signed Exam: Ultrasound kidneys and bladder No comparison INDICATION: Hydronephrosis. TECHNIQUE: Grayscale and color Doppler imaging. FINDINGS: The right kidney measures 9.0 cm in length and the left 9.8 cm.The kidneys are mildly hyperechoic bilaterally. This could be associated with medicalrenal disease. No findings for obstruction on either side. Blood flow to the kidneysdemonstrated with Doppler. Both ureteral jets seen with color Doppler. Urinary bladder is poorlydistended at about 50 mL. IMPRESSION: No urinary tract obstruction. Electronically Signed By: ELYSE CALHOUN MD 09/22/161750 Dictated On: 09/22/161747 Interpreted By: ELYSE CALHOUN MD Transcribed On: 09/22/16 174 - [facility] CC: KEYA GARCÍA MD, RES us Generic Conversion Md [facility] ULTRASOUND Final R esult documented in this encounter Visit Diagnoses Not on filedocumented in this encounter Care Teams Department Administrator Relationship Specialty Start Date End Date Hermes Ramirez III, MD [address] [facility] [address] [place] [address] PCP - General FAMILY PRACTICE 06/20/17 documented as of this encounter
--- OUTSIDE RECORDS SUMMARY | 2024-03-20 12:05 | XMS_ITS | Encounter Summary ---
Author Organization [facility] Address [address] [place] [address]. 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
--- OUTSIDE RECORDS SUMMARY | 2024-03-20 12:05 | XMS_ITS | Encounter Summary ---
Author Organization [facility] Address [address] [place] [address]. 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
--- OUTSIDE RECORDS SUMMARY | 2024-03-20 12:05 | XMS_ITS | Encounter Summary ---
Author Organization [facility] Address [address] [place] [address]. 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 [address], [place] [phone] documented in this encounter Visit Diagnoses Not on filedocumented in this encounter
--- OUTSIDE RECORDS SUMMARY | 2024-03-20 12:05 | XMS_ITS | Encounter Summary ---
Author Organization [facility] Address [address] [place] [address]. 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 Date/Time Dictated: 09/20/2016 00:00 a.m. Transcribed Date/Time: 09/21/2016 14:16 p.m. Surgery Date: cc: Lucero Green M.D. Chart Document Admission Diagnosis Pancreatitis and abdominal pain. Primary Care Physician Dr. Hermes Ramirez. 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 Presented to [facility] with complaints of abdominal pain. The patient started to have abdominal pain almost a week ago which is located just above and below the umbilicus. The patient also had some burning sensation in the epigastric area. She has a history of GERD as well. The patient has been having nausea for a week, not able to eat much. Abdominal pain is 8 out of 10 in intensity. The patient also has renal insufficiency secondary to transplant medication issues. The patient denies any headache, neck stiffness, shortness of breath, cough, or dizziness. She is experiencing some constipation for the last 3 days. Allergies Patient is allergic to: 1. Aspirin. 2. Codeine. 3. Erythromycin. 4. Ketorolac. 5. Tetracycline. Past Medical History Includes: 1. Liver transplant. 2. CKD. 3. History of GERD and peptic ulcer. 4. History of fibroids. 5. History of 2 C-sections. 6. History of inguinal hernia. Family History Positive for liver cancer in her mother. Social History Patient occasionally drinks alcohol. She is a current everyday smoker. Denies any recreational drug use. Review of Systems Performed. A 13 point review of systems which was negative except as what was mentioned in the HPI. Physical Examination Vital Signs: Temperature is 36.7, respiratory rate 16, blood pressure is 140/71, pulse is 94, pulse oximetry 100% on room air. General: On examination, patient is noted to not be in any acute distress. Eyes: Pupils are equal and reactive. No conjunctival injections. Sclerae anicteric. HENT: External ears are normal. No nasal discharge noted. Mucous membranes are moist. Neck: Supple. No thyromegaly. Lymph node: No lymphedema or lymphadenopathy. Cardiovascular: Heart auscultation regular rate and rhythm. No rubs, gallops, or murmurs. Femoral artery pulse normal. Carotid artery, no bruit. Lungs: Clear to auscultation bilaterally. Abdomen: Soft, nontender, nondistended. Bowel sounds positive. No hepatosplenomegaly. No hernias. Neurologic: Normal sensation. DTRs normal and symmetric. Psychiatric: The patient is alert, oriented to time, place, person. Lab Data WBC 4.2, hemoglobin 9.4, platelet count is 57. Sodium 138, potassium 4.4, chloride is 113, bicarbonate is 19.5, BUN 35, creatinine 2.7. GFR 20, AST 27, ALT 20 which is normal. Bilirubin 0.5, alkaline phos 266, total protein 5.4, mildly elevated 45, lipase elevated at 430, hCG is less than 1. Imaging Studies CT of the abdomen showed new, round heterogenous passage into the left side of the uterus. This may represent a pedunculated subserosal fibroid. However, an ovarian mass could also yield a similar appearance. Consider pelvic ultrasound to better evaluate the structures, constipation, stable postoperative changes consistent with hepatic transplantation. Assessment and Plan A 35-year-old female with history of liver transplant and gastroesophageal reflux disease presents to [facility] with complaint of abdominal pain for 1 week. 1. Abdominal pain likely secondary to alcohol-induced pancreatitis versus constipation. Continue nothing by mouth status. IV fluids started. Serial abdominal examinations. GI service consulted. Morphine for pain control. 2. Acute kidney injury versus chronic kidney disease. Patient has history of some CKD secondary to immunosuppressant medications. Continue IV fluids and monitor renal function. 3. Abdominal mass on the left side of the uterus. Differential diagnosis includes fibroid versus ovarian mass. Get pelvic ultrasound and consult Gynecology Service. 4. Gastroesophageal reflux disease and history of peptic ulcer. Continue PPI for now. GI service consulted. The patient may need EGD. 5. History of liver transplantation. The patient follows up in [place]. 6. Anemia and thrombocytopenia. Unclear etiology. Continue to monitor CBC. 7. Deep vein thrombosis prophylaxis with PAS boots and ambulation. Code Status Full code. Electronically Signed By: Jason Harper M.D. 09/22/2016 11:40 A Jason Harper M.D. documented in this encounter Plan of Treatment Not on file documented as of this encounter Visit Diagnoses Not on filedocumented in this encounter Care Teams Pattern Cutter Relationship Specialty Start Date End Date Hermes Ramirez III, MD [address] [address] PCP - General FAMILY PRACTICE 06/20/17 documented as of this encounter
--- OUTSIDE RECORDS SUMMARY | 2024-03-20 12:05 | XMS_ITS | Encounter Summary ---
Author Organization [facility] Address [address] [place] [address]. 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
--- OUTSIDE RECORDS SUMMARY | 2024-03-20 12:05 | XMS_ITS | Encounter Summary ---
Author Organization [facility] Address [address] [place] [address]. 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 Gender Identity Not on file Sexual Orientation Not on file documented as of this encounter Plan of Treatment Not on file documented as of this encounter Procedures Procedure Name Priority Date/Time Associated Diagnosis Comments CBC W/DIFF AUTOMATED TIMED 09/24/2016 7:30 AM CDT documented in this encounter Results * (ABNORMAL) CBC W/DIFF AUTOMATED (09/24/2016 7:30 AM CDT) WBC 2.7(L) 4.0 - 10.8 x10'3/uL 09/24/2016 7:25 AM CDT [facility] RBC 2.46(L) 4.10 - 5.40 x10'6/uL 09/24/2016 7:25 AM CDT [facility] HGB 8.4(L) 12.0 - 16.0 G/DL 09/24/2016 7:25 AM CDT [facility] HCT 24.0(L) 36.0 - 47.0 % 09/24/2016 7:25 AM CDT [facility] MCV 97.6 78.0 - 100.0 FL 09/24/2016 7:25 AM CDT [facility] MCH 34.1(H) 27.0 - 31.0 PG 09/24/2016 7:25 AM CDT [facility] MCHC 35.0 33.0 - 36.0 G/DL 09/24/2016 7:25 AM CDT [facility] RDW 12.5 11.5 - 14.5 % 09/24/2016 7:25 AM CDT [facility] PLT 51(L) 150 - 350 x10'3/uL 09/24/2016 7:25 AM CDT [facility] MPV 12.0(H) 7.4 - 10.4 FL 09/24/2016 7:25 AM CDT [facility] ABS. NEUTROPHILS TOTAL 1.84 1.60 - 8.30 x10'3/uL 09/24/2016 8:57 AM CDT [facility] ABS. NEUTROPHILS CALCULATED 1.70 1.60 - 7.30 x10'3/uL 09/24/2016 8:57 AM CDT [facility] BANDS 0.11 0.00 - 1.00 x10'3/uL 09/24/2016 8:57 AM CDT [facility] ABS. LYMPHOCYTES 0.35(L) 0.80 - 4.70 x10'3/uL 09/24/2016 8:57 AM CDT [facility] ABS. MONOCYTES 0.30 0.00 - 1.50 x10'3/uL 09/24/2016 8:57 AM CDT [facility] ABS. EOSINOPHILS 0.22 0.00 - 0.40 x10'3/uL 09/24/2016 8:57 AM CDT [facility] ABS. BASOPHILS 0.00 0.00 - 0.20 x10'3/uL 09/24/2016 8:57 AM CDT [facility] ABS. METAMYELOCYTES 0.03(H) 0.00 x10'3/uL 09/24/2016 8:57 AM CDT [facility] ABS. NUCLEATED RBC'S 0.00 0.0 x10'3/uL 09/24/2016 8:57 AM CDT [facility] RBC MORPHOLOGY ANISOCYTOSIS 09/25/19 8:57 AM CDT [facility] Comment: SLIGHT POIKILOCYTOSIS SLIGHT OVALOCYTES WBC MORPHOLOGY REACTIVE LYMPHS 09/24 8:57 AM CDT [facility] PLT MORPH. LOW 09/24/2016 8:57 AM CDT [facility] PLASMA SPECIMEN / Unknown 09/24/2016 7:30 AM CDT 09/24/2016 6:35 AM CDT us Generic Conversion Md [facility] Final R esult [facility] [address] [place] [address], [id number] documented in this encounter Visit Diagnoses Not on filedocumented in this encounter
--- OUTSIDE RECORDS SUMMARY | 2024-03-20 12:05 | XMS_ITS | Encounter Summary ---
Author Organization [facility] Address [address] [place] [address]. 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 Gender Identity Not on file Sexual Orientation Not on file documented as of this encounter Plan of Treatment Not on file documented as of this encounter Procedures Procedure Name Priority Date/Time Associated Diagnosis Comments AMYLASE Routine 09/22/2016 6:17 AM CDT documented in this encounter Results * AMYLASE (09/22/2016 6:17 AM CDT) AMYLASE S/P/B 31 25 - 125 UNITS/L 09/22/2016 5:50 AM CDT [facility] SERUM OR PLASMA SPECIMEN / Unknown 09/22/2016 6:17 AM CDT 09/22/2016 5:18 AM CDT us Generic Conversion Md [facility] Final R esult [facility] [address] [place], [place] [address] [phone] documented in this encounter Visit Diagnoses Not on filedocumented in this encounter
--- OUTSIDE RECORDS SUMMARY | 2024-03-20 12:05 | XMS_ITS | Encounter Summary ---
Author Organization [facility] Address [address] [place] [address]. 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
--- OUTSIDE RECORDS SUMMARY | 2024-03-20 12:05 | XMS_ITS | Encounter Summary ---
Author Organization [facility] Address [address] [place] [address]. 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 Gender Identity Not on file Sexual Orientation Not on file documented as of this encounter Plan of Treatment Not on file documented as of this encounter Procedures Procedure Name Priority Date/Time Associated Diagnosis Comments BASIC METABOLIC PANEL TIMED 09/25/2016 6:50 AM CDT documented in this encounter Results * (ABNORMAL) BASIC METABOLIC PANEL (09/25/2016 6:50 AM CDT) SODIUM S/P/B 142 135 - 147 MMOL/L 09/25/2016 6:31 AM CDT [facility] POTASSIUM S/P/B 3.7 3.5 - 5.0 MMOL/L 09/25/2016 6:31 AM CDT [facility] Comment:SLIGHT HEMOLYSIS, RE SULT MAY BE AFFECTED. CHLORIDE S/P/B 116(H) 98 - 107 MMOL/L 09/25/2016 6:31 AM CDT [facility] CO2 17.9(L) 22 - 29 MMOL/L 09/25/2016 6:31 AM CDT [facility] GLUCOSE 88 70 - 109 MG/DL 09/25/2016 6:31 AM CDT [facility] BUN 18 7 - 19 MG/DL 09/25/2016 6:31 AM CDT [facility] CREATININE S/P/B 2.32(H) 0.60 - 1.10 MG/DL 09/25/2016 6:31 AM CDT [facility] CALCIUM S/P/B 8.0(L) 8.4 - 10.2 MG/DL 09/25/2016 6:31 AM CDT [facility] EGFR NON-AFR. AMER. 24(L) >60 ML/MIN/1.7 3 M2 09/25/2016 6:31 AM T [facility] EGFR AFR. AMER. 29(L) >60 ML/MIN/1.7 3 M2 09/25/2016 6:31 AM CDT [facility] ANION GAP 8.1 MMOL/L 09/25/2016 6:31 AM T [facility] OSMOLALITY (CALC) 284 MOSM/KG 09/25/2016 6:31 AM T [facility] PLASMA SPECIMEN / Unknown 09/25/2016 6:50 AM CDT 09/25/2016 6:00 AM CDT us Generic Conversion Md [facility] Final R esult [facility] [address] [place] [address], [id number] documented in this encounter Visit Diagnoses Not on filedocumented in this encounter
--- OUTSIDE RECORDS SUMMARY | 2024-03-20 12:05 | XMS_ITS | Encounter Summary ---
Author Organization [facility] Address [address] [place] [address]. 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 Gender Identity Not on file Sexual Orientation Not on file documented as of this encounter Plan of Treatment Not on file documented as of this encounter Procedures Procedure Name Priority Date/Time Associated Diagnosis Comments CBC W/DIFF AUTOMATED TIMED 09/22/2016 6:17 AM CDT documented in this encounter Results * (ABNORMAL) CBC W/DIFF AUTOMATED (09/22/2016 6:17 AM CDT) WBC 4.4 4.0 - 10.8 x10'3/uL 09/22/2016 5:43 AM CDT [facility] RBC 2.52(L) 4.10 - 5.40 x10'6/uL 09/22/2016 5:43 AM CDT [facility] HGB 8.6(L) 12.0 - 16.0 G/DL 09/22/2016 5:43 AM CDT [facility] HCT 24.8(L) 36.0 - 47.0 % 09/22/2016 5:43 AM CDT [facility] MCV 98.4 78.0 - 100.0 FL 09/22/2016 5:43 AM CDT [facility] MCH 34.1(H) 27.0 - 31.0 PG 09/22/2016 5:43 AM CDT [facility] MCHC 34.7 33.0 - 36.0 G/DL 09/22/2016 5:43 AM CDT [facility] RDW 13.2 11.5 - 14.5 % 09/22/2016 5:43 AM CDT [facility] PLT 55(L) 150 - 350 x10'3/uL 09/22/2016 5:43 AM CDT [facility] MPV 11.8(H) 7.4 - 10.4 FL 09/22/2016 5:43 AM CDT [facility] ABS. NEUTROPHILS TOTAL 3.11 1.60 - 8.30 x10'3/uL 09/22/2016 5:43 AM CDT [facility] ABS. LYMPHOCYTES 0.78(L) 0.80 - 4.70 x10'3/uL 09/22/2016 5:43 AM CDT [facility] ABS. MONOCYTES 0.42 0.00 - 1.50 x10'3/uL 09/22/2016 5:43 AM CDT [facility] ABS. EOSINOPHILS 0.08 0.00 - 0.40 x10'3/uL 09/22/2016 5:43 AM CDT [facility] ABS. BASOPHILS 0.01 0.00 - 0.20 x10'3/uL 09/22/2016 5:43 AM CDT [facility] ABS. IMMATURE GRANULOCYTES 0.02 0.00 - 0.03 x10'3/uL 09/22/2016 5:43 AM CDT [facility] ABS. NUCLEATED RBC'S 0.00 0.0 x10'3/uL 09/22/2016 5:43 AM CDT [facility] PLASMA SPECIMEN / Unknown 09/22/2016 6:17 AM CDT 09/22/2016 5:18 AM CDT us Generic Conversion Md [facility] Final R esult Performing Organization Address City/State/[facility] Co de Phone Number [facility] [address] [place] [address], [id number] documented in this encounter Visit Diagnoses Not on filedocumented in this encounter
--- OUTSIDE RECORDS SUMMARY | 2024-03-20 12:05 | XMS_ITS | Encounter Summary ---
Author Organization [facility] Address [address] [place] [address]. 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
--- OUTSIDE RECORDS SUMMARY | 2024-03-20 12:05 | XMS_ITS | Encounter Summary ---
Author Organization [facility] Address [address] [place] [address]. 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 Gender Identity Not on file Sexual Orientation Not on file documented as of this encounter Plan of Treatment Not on file documented as of this encounter Procedures Procedure Name Priority Date/Time Associated Diagnosis Comments BASIC METABOLIC PANEL TIMED 09/24/2016 7:30 AM CDT documented in this encounter Results * (ABNORMAL) BASIC METABOLIC PANEL (09/24/2016 7:30 AM CDT) SODIUM S/P/B 141 135 - 147 MMOL/L 09/24/2016 7:05 AM CDT [facility] POTASSIUM S/P/B 3.9 3.5 - 5.0 MMOL/L 09/24/2016 7:05 AM CDT [facility] Comment:MILD HEMOLYSIS, RESU LT MAY BE AFFECTED. CHLORIDE S/P/B 117(H) 98 - 107 MMOL/L 09/24/2016 7:05 AM CDT [facility] CO2 20.0(L) 22 - 29 MMOL/L 09/24/2016 7:05 AM CDT [facility] GLUCOSE 97 70 - 109 MG/DL 09/24/2016 7:05 AM T [facility] BUN 25(H) 7 - 19 MG/DL 09/24/2016 7:05 AM T [facility] CREATININE S/P/B 2.61(H) 0.60 - 1.10 MG/DL 09/24/2016 7:05 AM T [facility] CALCIUM S/P/B 7.9(L) 8.4 - 10.2 MG/DL 09/24/2016 7:05 AM T [facility] EGFR NON-AFR. AMER. 21(L) >60 ML/MIN/1.7 3 M2 09/24/2016 7:05 AM T [facility] EGFR AFR. AMER. 26(L) >60 ML/MIN/1.7 3 M2 09/24/2016 7:05 AM T [facility] ANION GAP 4.0 MMOL/L 09/24/2016 7:05 AM T [facility] OSMOLALITY (CALC) 286 MOSM/KG 09/24/2016 7:05 AM T [facility] PLASMA SPECIMEN / Unknown 09/24/2016 7:30 AM CDT 09/24/2016 6:35 AM CDT us Generic Conversion Md [facility] Final R esult [facility] [address] [place] [address], [id number] documented in this encounter Visit Diagnoses Not on filedocumented in this encounter
--- OUTSIDE RECORDS SUMMARY | 2024-03-20 12:05 | XMS_ITS | Encounter Summary ---
Author Organization [facility] Address [address] [place] [address]. 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 POTASSIUM S/P/B 3.2(L) 3.5 - 5.0 MMOL/L 09/25/2016 10:[address] [facility] CHLORIDE S/P/B 115(H) 98 - 107 MMOL/L 09/25/2016 10:[address] [facility] CO2 18.6(L) 22 - 29 MMOL/L 09/25/2016 10:[address] [facility] GLUCOSE 91 70 - 109 MG/DL 09/25/2016 10:[address] [facility] BUN 18 7 - 19 MG/DL 09/25/2016 10:[address] [facility] CREATININE S/P/B 2.39(H) 0.60 - 1.10 MG/DL 09/25/2016 10:[address] [facility] CALCIUM S/P/B 8.3(L) 8.4 - 10.2 MG/DL 09/25/2016 10:[address] [facility] EGFR NON-AFR. AMER. 23(L) >60 ML/MIN/1.7 3 M2 09/25/2016 10:[address] [facility] EGFR AFR. AMER. 28(L) >60 ML/MIN/1.7 3 M2 09/25/2016 10:[address] [facility] ANION GAP 9.4 MMOL/L 09/25/2016 10:[address] [facility] OSMOLALITY (CALC) 286 MOSM/KG 09/25/2016 10:[address] [facility] PLASMA SPECIMEN / Unknown 09/25/2016 11:02 AM CDT 09/25/2016 10:17 AM CDT us Generic Conversion Md [facility] Final R esult [facility] [address] [place] [address], [id number] documented in this encounter Visit Diagnoses Not on filedocumented in this encounter
--- OUTSIDE RECORDS SUMMARY | 2024-03-20 12:05 | XMS_ITS | Encounter Summary ---
Author Organization [facility] Address [address] [place] [address]. 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 Gender Identity Not on file Sexual Orientation Not on file documented as of this encounter Plan of Treatment Not on file documented as of this encounter Procedures Procedure Name Priority Date/Time Associated Diagnosis Comments CBC W/DIFF AUTOMATED NOW 09/25/2016 11:01 AM CDT documented in this encounter Results * (ABNORMAL) CBC W/DIFF AUTOMATED (09/25/2016 11:01 AM CDT) WBC 4.4 4.0 - 10.8 x10'3/uL 09/25/2016 10:29 AM CDT [facility] RBC 2.68(L) 4.10 - 5.40 x10'6/uL 09/25/2016 10:29 AM CDT [facility] HGB 9.1(L) 12.0 - 16.0 G/DL 09/25/2016 10:29 AM CDT [facility] HCT 25.3(L) 36.0 - 47.0 % 09/25/2016 10:29 AM CDT [facility] MCV 94.4 78.0 - 100.0 FL 09/25/2016 10:29 AM CDT [facility] MCH 34.0(H) 27.0 - 31.0 PG 09/25/2016 10:29 AM CDT [facility] MCHC 36.0 33.0 - 36.0 G/DL 09/25/2016 10:29 AM CDT [facility] RDW 12.1 11.5 - 14.5 % 09/25/2016 10:29 AM CDT [facility] PLT 59(L) 150 - 350 x10'3/uL 09/25/2016 10:29 AM CDT [facility] MPV 11.5(H) 7.4 - 10.4 FL 09/25/2016 10:29 AM CDT [facility] ABS. NEUTROPHILS TOTAL 2.95 1.60 - 8.30 x10'3/uL 09/25/2016 12:17 PM CDT [facility] ABS. NEUTROPHILS CALCULATED 2.73 1.60 - 7.30 x10'3/uL 09/25/2016 12:17 PM CDT [facility] BANDS 0.18 0.00 - 1.00 x10'3/uL 09/25/2016 12:17 PM CDT [facility] ABS. LYMPHOCYTES 0.92 0.80 - 4.70 x10'3/uL 09/25/2016 12:17 PM CDT [facility] ABS. MONOCYTES 0.26 0.00 - 1.50 x10'3/uL 09/25/2016 12:17 PM CDT [facility] ABS. EOSINOPHILS 0.26 0.00 - 0.40 x10'3/uL 09/25/2016 12:17 PM CDT [facility] ABS. BASOPHILS 0.00 0.00 - 0.20 x10'3/uL 09/25/2016 12:17 PM CDT [facility] ABS. MYELOCYTES 0.04(H) 0.00 x10'3/uL 09/25/2016 12:17 PM CDT [facility] ABS. NUCLEATED RBC'S 0.00 0.0 x10'3/uL 09/25/2016 12:17 PM CDT [facility] RBC MORPHOLOGY POIKILOCYTOSIS 2016 12:17 PM CDT [facility] Comment: SLIGHT OVALOCYTES PLT MORPH. LOW 09/25/2016 12:17 PM CDT [facility] PLASMA SPECIMEN / Unknown 09/25/2016 11:01 AM CDT 09/25/2016 10:17 AM CDT us Generic Conversion Md [facility] Final R esult [facility] [address] [place] [address], [place] [phone] [id number] documented in this encounter Visit Diagnoses Not on filedocumented in this encounter
--- OUTSIDE RECORDS SUMMARY | 2024-03-20 12:06 | XMS_ITS | Encounter Summary ---
Author Organization [facility] Address [address] [place] [address]. 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 Gender Identity Not on file Sexual Orientation Not on file documented as of this encounter Plan of Treatment Not on file documented as of this encounter Procedures Procedure Name Priority Date/Time Associated Diagnosis Comments COMPREHENSIVE METABOLIC PANEL TIMED 09/21/2016 3:58 AM CDT documented in this encounter Results * (ABNORMAL) COMPREHENSIVE METABOLIC PANEL (09/21/2016 3:58 AM CDT) SODIUM S/P/B 138 135 - 147 MMOL/L 09/21/2016 3:46 AM CDT [facility] POTASSIUM S/P/B 5.8(H) 3.5 - 5.0 MMOL/L 09/21/2016 3:46 AM CDT [facility] CHLORIDE S/P/B 117(H) 98 - 107 MMOL/L 09/21/2016 3:46 AM CDT [facility] CO2 15.8(L) 22 - 29 MMOL/L 09/21/2016 3:46 AM [facility] GLUCOSE 68(L) 70 - 109 MG/DL 09/21/2016 3:46 AM [facility] BUN 34(H) 7 - 19 MG/DL 09/21/2016 3:46 AM [facility] CREATININE S/P/B 2.66(H) 0.60 - 1.10 MG/DL 09/21/2016 3:46 AM [facility] CALCIUM S/P/B 8.0(L) 8.4 - 10.2 MG/DL 09/21/2016 3:46 AM [facility] BILIRUBIN TOTAL S/P/B 0.7 0.2 - 1.2 MG/DL 09/21/2016 3:46 AM [facility] ALKALINE PHOSPHATASE S/P/B 269(H) 37 - 98 U/L 09/21/2016 3:46 AM [facility] AST 25 5 - 35 U/L 09/21/2016 3:46 AM [facility] ALT 19 0 - 55 U/L 09/21/2016 3:46 AM [facility] TOTAL PROTEIN S/P/B 5.3(L) 6.0 - 8.3 G/DL 09/21/2016 3:46 AM [facility] ALBUMIN S/P/B 3.0(L) 3.4 - 4.9 G/DL 09/21/2016 3:46 AM [facility] ANION GAP 5.2 MMOL/L 09/21/2016 3:46 AM [facility] OSMOLALITY (CALC) 282 MOSM/KG 09/21/2016 3:46 AM [facility] EGFR NON-AFR. AMER. 21(L) >60 ML/MIN/1.7 3 M2 09/21/2016 3:46 AM [facility] EGFR AFR. AMER. 25(L) >60 ML/MIN/1.7 3 M2 09/21/2016 3:46 AM CDT [facility] PLASMA SPECIMEN / Unknown 09/21/2016 3:58 AM CDT 09/21/2016 3:09 AM CDT us Generic Conversion Md [facility] Final R esult [facility] [address] [place] [address], [place] [phone] documented in this encounter Visit Diagnoses Not on filedocumented in this encounter
--- OUTSIDE RECORDS SUMMARY | 2024-03-20 12:06 | XMS_ITS | Encounter Summary ---
Author Organization [facility] Address [address] [place] [address]. 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 Gender Identity Not on file Sexual Orientation Not on file documented as of this encounter Plan of Treatment Not on file documented as of this encounter Procedures Procedure Name Priority Date/Time Associated Diagnosis Comments CULTURE, BACTERIA, BLOOD NOW 09/20/2016 6:38 PM CDT documented in this encounter Results * CULTURE, BACTERIA, BLOOD (09/20/2016 6:38 PM CDT) SPEC DESCRIPTION BLOOD 09/20/2016 5:01 PM CDT [facility] SPECIAL REQUESTS NO SPECIAL REQUEST 09/20/2016 5:01 PM CDT [facility] CULTURE RESULT NO GROWTH 5 DAYS 09/25/2016 10:47 PM CDT [facility] BLOOD SPECIMEN OBTAINED FOR BLOOD CULTURE / Unknown 09/20/2016 6:38 PM CDT 09/20/2016 5:39 PM CDT Comment:BLOOD-AEROBIC BOTTLE ONLY us Generic Conversion Md [facility] - GENERAL ORDERABLES Final Result Performing Organization Address City/State/[facility] Co de Phone Number [facility] [address] [place] [address], [place] [phone] [id number] documented in this encounter Visit Diagnoses Not on filedocumented in this encounter
--- OUTSIDE RECORDS SUMMARY | 2024-03-20 12:06 | XMS_ITS | Encounter Summary ---
Author Organization [facility] Address [address] [place] [address]. 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 Gender Identity Not on file Sexual Orientation Not on file documented as of this encounter Plan of Treatment Not on file documented as of this encounter Procedures Procedure Name Priority Date/Time Associated Diagnosis Comments IMMUNOASSAY, TUMOR ANTIGEN, CA 125 Routine 09/20/2016 2:44 PM CDT documented in this encounter Results * IMMUNOASSAY, TUMOR ANTIGEN, CA 125 (09/20/2016 2:44 PM CDT) CA 125 13.9 0.0 - 34.9 U/mL 09/20/2016 7:45 PM CDT [facility] SERUM OR PLASMA SPECIMEN / Unknown 09/20/2016 2:44 PM CDT 09/20/2016 7:08 PM CDT us Generic Conversion Md [facility] Final R esult [facility] [address] [place] [id number], [id number] documented in this encounter Visit Diagnoses Not on filedocumented in this encounter
--- OUTSIDE RECORDS SUMMARY | 2024-03-20 12:06 | XMS_ITS | Encounter Summary ---
Author Organization [facility] Address [address] [place] [address]. 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 POTASSIUM S/P/B 4.4 3.5 - 5.0 MMOL/L 09/20/2016 2:[address] [facility] Comment:SLIGHT HEMOLYSIS, RE SULT MAY BE AFFECTED. CHLORIDE S/P/B 113(H) 98 - 107 MMOL/L 09/20/2016 2:[address] [facility] CO2 19.5(L) 22 - 29 MMOL/L 09/20/2016 2:[address] [facility] GLUCOSE 83 70 - 109 MG/DL 09/20/2016 2:[address] [facility] BUN 35(H) 7 - 19 MG/DL 09/20/2016 2:[address] [facility] CREATININE S/P/B 2.75(H) 0.60 - 1.10 MG/DL 09/20/2016 2:[address] [facility] CALCIUM S/P/B 7.9(L) 8.4 - 10.2 MG/DL 09/20/2016 2:[address] [facility] BILIRUBIN TOTAL S/P/B 0.5 0.2 - 1.2 MG/DL 09/20/2016 2:[address] [facility] ALKALINE PHOSPHATASE S/P/B 266(H) 37 - 98 U/L 09/20/2016 2:[address] [facility] AST 27 5 - 35 U/L 09/20/2016 2:[address] [facility] ALT 20 0 - 55 U/L 09/20/2016 2:[address] [facility] TOTAL PROTEIN S/P/B 5.4(L) 6.0 - 8.3 G/DL 09/20/2016 2:[address] [facility] ALBUMIN S/P/B 3.0(L) 3.4 - 4.9 G/DL 09/20/2016 2:[address] [facility] ANION GAP 5.5 MMOL/L 09/20/2016 2:[address] [facility] OSMOLALITY (CALC) 283 MOSM/KG 09/20/2016 2:[address] [facility] EGFR NON-AFR. AMER. 20(L) >60 ML/MIN/1.7 3 M2 09/20/2016 2:[address] [facility] EGFR AFR. AMER. 24(L) >60 ML/MIN/1.7 3 M2 09/20/2016 2:[address] [facility] PLASMA SPECIMEN / Unknown 09/20/2016 2:44 PM CDT 09/20/2016 1:45 PM CDT us Generic Conversion Md [facility] Final R esult [facility] [address] [place] [address], [id number] documented in this encounter Visit Diagnoses Not on filedocumented in this encounter
--- OUTSIDE RECORDS SUMMARY | 2024-03-20 12:06 | XMS_ITS | Encounter Summary ---
Author Organization [facility] Address [address] [place] [address]. 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 Gender Identity Not on file Sexual Orientation Not on file documented as of this encounter Plan of Treatment Not on file documented as of this encounter Procedures Procedure Name Priority Date/Time Associated Diagnosis Comments HCG QUANT (SERUM)-CHORIONIC GONADOTROPIN STAT 09/20/2016 2:44 PM CDT documented in this encounter Results * BHCG QUANT (SERUM)-CHORIONIC GONADOTROPIN (09/20/2016 2:44 PM CDT) HCG QUANTITATIVE <1 MIU/ML 09/21/19 17 2:10 PM CDT [facility] Comment: <5 IS NEGATIVE 5-25 IS BORDERLINE >25 IS POSITIVE SERUM OR PLASMA SPECIMEN / Unknown 09/20/2016 2:44 PM CDT 09/20/2016 1:45 PM CDT us Generic Conversion Md [facility] Final R esult [facility] [address] [place] [address], [id number] documented in this encounter Visit Diagnoses Not on filedocumented in this encounter
--- OUTSIDE RECORDS SUMMARY | 2024-03-20 12:06 | XMS_ITS | Encounter Summary ---
Author Organization [facility] Address [address] [place] [address]. 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 Gender Identity Not on file Sexual Orientation Not on file documented as of this encounter Plan of Treatment Not on file documented as of this encounter Procedures Procedure Name Priority Date/Time Associated Diagnosis Comments CBC W/DIFF AUTOMATED TIMED 09/21/2016 3:58 AM CDT documented in this encounter Results * (ABNORMAL) CBC W/DIFF AUTOMATED (09/21/2016 3:58 AM CDT) WBC 4.7 4.0 - 10.8 x10'3/uL 09/21/2016 3:26 AM CDT [facility] RBC 2.74(L) 4.10 - 5.40 x10'6/uL 09/21/2016 3:26 AM CDT [facility] HGB 9.3(L) 12.0 - 16.0 G/DL 09/21/2016 3:26 AM CDT [facility] HCT 26.8(L) 36.0 - 47.0 % 09/21/2016 3:26 AM CDT [facility] MCV 97.8 78.0 - 100.0 FL 09/21/2016 3:26 AM CDT [facility] MCH 33.9(H) 27.0 - 31.0 PG 09/21/2016 3:26 AM CDT [facility] MCHC 34.7 33.0 - 36.0 G/DL 09/21/2016 3:26 AM CDT [facility] RDW 12.6 11.5 - 14.5 % 09/21/2016 3:26 AM CDT [facility] PLT 56(L) 150 - 350 x10'3/uL 09/21/2016 3:26 AM T [facility] MPV 12.1(H) 7.4 - 10.4 FL 09/21/2016 3:26 AM T [facility] ABS. NEUTROPHILS TOTAL 3.83 1.60 - 8.30 x10'3/uL 09/21/2016 3:26 AM CDT [facility] ABS. LYMPHOCYTES 0.49(L) 0.80 - 4.70 x10'3/uL 09/21/2016 3:26 AM CDT [facility] ABS. MONOCYTES 0.31 0.00 - 1.50 x10'3/uL 09/21/2016 3:26 AM CDT [facility] ABS. EOSINOPHILS 0.07 0.00 - 0.40 x10'3/uL 09/21/2016 3:26 AM CDT [facility] ABS. BASOPHILS 0.00 0.00 - 0.20 x10'3/uL 09/21/2016 3:26 AM CDT [facility] ABS. IMMATURE GRANULOCYTES 0.01 0.00 - 0.03 x10'3/uL 09/21/2016 3:26 AM CDT [facility] ABS. NUCLEATED RBC'S 0.00 0.0 x10'3/uL 09/21/2016 3:26 AM CDT [facility] PLASMA SPECIMEN / Unknown 09/21/2016 3:58 AM CDT 09/21/2016 3:09 AM CDT us Generic Conversion Md [facility] Final R esult Performing Organization Address City/State/[facility] Co de Phone Number [facility] [address] [place] [address], [id number] documented in this encounter Visit Diagnoses Not on filedocumented in this encounter
--- OUTSIDE RECORDS SUMMARY | 2024-03-20 12:06 | XMS_ITS | Encounter Summary ---
Author Organization [facility] Address [address] [place] [address]. 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 Gender Identity Not on file Sexual Orientation Not on file documented as of this encounter Plan of Treatment Not on file documented as of this encounter Procedures Procedure Name Priority Date/Time Associated Diagnosis Comments POTASSIUM, SERUM STAT 09/21/2016 12:4 1 PM CDT documented in this encounter Results * (ABNORMAL) POTASSIUM, SERUM (09/21/2016 12:41 PM CDT) POTASSIUM S/P/B 6.2(HH) 3.5 - 5.0 MMOL/L 09/21/2016 12:13 PM CDT [facility] Comment:Critical results jayden led to and read back by ANSON Grant at 1312 by SERUM OR PLASMA SPECIMEN / Unknown 09/21/2016 12:41 PM CDT 09/21/2016 11:42 AM CDT us Generic Conversion Md [facility] Final R esult [facility] [address] [place] [address], [id number] documented in this encounter Visit Diagnoses Not on filedocumented in this encounter
--- OUTSIDE RECORDS SUMMARY | 2024-03-20 12:06 | XMS_ITS | Encounter Summary ---
Author Organization [facility] Address [address] [place] [address]. 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 ?? [place], [place] ?? Department of Radiology ? MISHA JACKSON Ordering MD: AMADO VUONG MD, RES ?? Acct: [id number] ?? : 1980 Pt Type: ADM IN ?? Sex: F Ord Site: MAIN ? Study Date Accession # Procedure Code Procedure ?? 09/20/16 [id number]+ US Pelvis Non OB w Transvag+ ? Signed ? EXAMINATION: Complete pelvic sonogram (non-obstetric) with transvaginal ultrasound ? CLINICAL HISTORY: 35 years female inpatient with given history of left adnexal mass, CT ?? earlier this afternoon. Request for non-OB pelvic ultrasound for continued evaluation. Status ?? 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 LEEP procedure x 2 . Uterine ablation. Appendectomy. History of ?? peptic ulcer disease. ITP. ?? 2 ??Para 2 LMP= unknown UPT negative ? COMPARISON: All available pelvic imaging includes contrast-enhanced CT abdomen and pelvis ?? 09/22/2010 and hysterosalpingogram 11/02/[address] abdomen and pelvis 08/18/2014 and ?? nonenhanced CT abdomen and pelvis earlier today at 15:30. ? TECHNIQUE: Ultrasound examination of the pelvis was performed utilizing transabdominal and ?? transvaginal approach to assess grayscale appearance, color doppler flow, and spectral ?? waveform characteristics. ? FINDINGS: ?? Uterus: 6.8 x 3.1 x 4.3 cm. No masses. Normal position of the uterus ?? Endometrial stripe: 3.8 mm in thickness. ?? Cervix: ??Nabothian cysts. ? Right ovary: 3.7 x 2.2 x 3.8 cm. Normal echogenicity. Normal blood flow and spectral analysis. ?? No masses or complex cysts. Rounded anechoic marginated cystic structure with through sound ?? transmission measuring 3 cm in diameter contained within the right ovary without intrinsic or ?? peripheral flow. No mural nodules or septations most consistent with large simple ovarian ?? cyst. ?? Left ovary: 4.8 x 3.5 x 3.7 cm. Normal echogenicity. Normal blood flow and spectral analysis. ?? No masses or complex cysts. Enlarged left adnexal mass seen on the CT is probably this ovary.. ?? Mildly enlarged, and heterogeneous with solid and cystic components may represent a large ?? endometrioma or hemorrhagic cyst given ITP, or could represent neoplastic enlargement of the ?? left ovary. Consider nonemergent outpatient contrast-enhanced MRI of the pelvis for continued ?? evaluation. ? Other findings: Small amount of free fluid is seen within the pelvis. ?? Visible bladder not adequately distended. ? IMPRESSION: ?? 1. No acute pelvic abnormalities observed. ?? 2. Enlarged left ovary endometrioma versus large hemorrhagic cyst versus neoplastic ?? degeneration. ?? 3.Consider nonemergent outpatient contrast-enhanced MRI of the pelvis for continued evaluation. ? Electronically Signed By: JENNIFER GLASS, 09/20/16 191 ? Dictated On: 09/20/16 183 ?? Interpreted By: JENNIFER GLASS, DO ?? Transcribed On: 09/20/16 185 - INFCE ? CC: ? AMADO VUONG MD, RES Procedure Note , Generic Conversion, - 01/11/2018 [place], [place] Department of Radiology MISHA JACKSON Ordering MD: AMADO VUONG MD, RES Acct: [id number] : 1980 Pt Type: ADM IN Sex: F Ord Site: MAIN Study Date Accession # Procedure Code Procedure 09/20/16 [id number]+ US Pelvis Non OB w Transvag+ Signed EXAMINATION: Complete pelvic sonogram (non-obstetric) with transvaginalultrasound CLINICAL HISTORY: 35 years female inpatient with given history of leftadnexal mass, CT earlier this afternoon. Request for non-OB pelvic ultrasound forcontinued evaluation. 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 LEEP procedure x 2 . Uterine ablation.Appendectomy. History of peptic ulcer disease. ITP. 2 Para 2 LMP= unknown UPT negative COMPARISON: All available pelvic imaging includes contrast-enhanced CTabdomen and pelvis 09/22/2010 and hysterosalpingogram 11/02/[address] abdomen andpelvis 08/18/[address] abdomen and pelvis earlier today at 15:30. TECHNIQUE: Ultrasound examination of the pelvis was performed utilizingtransabdominal and transvaginal approach to assess grayscale appearance, color doppler flow,and spectral waveform characteristics. FINDINGS: Uterus: 6.8 x 3.1 x 4.3 cm. No masses. Normal position of the uterus Endometrial stripe: 3.8 mm in thickness. Cervix: Nabothian cysts. Right ovary: 3.7 x 2.2 x 3.8 cm. Normal echogenicity. Normal blood flowand spectral analysis. No masses or complex cysts. Rounded anechoic marginated cystic structurewith through sound transmission measuring 3 cm in diameter contained within the right ovarywithout intrinsic or peripheral flow. No mural nodules or septations most consistent withlarge simple ovarian cyst. Left ovary: 4.8 x 3.5 x 3.7 cm. Normal echogenicity. Normal blood flowand spectral analysis. No masses or complex cysts. Enlarged left adnexal mass seen on the CT isprobably this ovary.. Mildly enlarged, and heterogeneous with solid and cystic components mayrepresent a large endometrioma or hemorrhagic cyst given ITP, or could represent neoplasticenlargement of the left ovary. Consider nonemergent outpatient contrast-enhanced MRI of thepelvis for continued evaluation. Other findings: Small amount of free fluid is seen within the pelvis. Visible bladder not adequately distended. IMPRESSION: 1. No acute pelvic abnormalities observed. 2. Enlarged left ovary endometrioma versus large hemorrhagic cyst versusneoplastic degeneration. 3.Consider nonemergent outpatient contrast-enhanced MRI of the pelvis forcontinued evaluation. Electronically Signed By: JENNIFER GLASS DO 09/20/161912 Dictated On: 09/20/16 183 Interpreted By: JENNIFER GLASS DO Transcribed On: 09/20/16 185 - INFCE CC: AMADO VUONG MD, RES us Generic Conversion Md [facility] ULTRASOUND Final R esult documented in this encounter Visit Diagnoses Not on filedocumented in this encounter Care Teams Ic Designer Custom Relationship Specialty Start Date End Date Hermes Ramirez III, MD [address] [facility] [address] [place] [address] PCP - General FAMILY PRACTICE 06/20/17 documented as of this encounter
--- OUTSIDE RECORDS SUMMARY | 2024-03-20 12:06 | XMS_ITS | Encounter Summary ---
Author Organization [facility] Address [address] [place] [address]. 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 Gender Identity Not on file Sexual Orientation Not on file documented as of this encounter Plan of Treatment Not on file documented as of this encounter Procedures Procedure Name Priority Date/Time Associated Diagnosis Comments AMYLASE STAT 09/20/2016 2:44 PM CDT documented in this encounter Results * (ABNORMAL) AMYLASE (09/20/2016 2:44 PM CDT) AMYLASE S/P/B 145(H) 25 - 125 UNITS/L 09/20/2016 4:42 PM CDT [facility] SERUM OR PLASMA SPECIMEN / Unknown 09/20/2016 2:44 PM CDT 09/20/2016 4:22 PM CDT us Generic Conversion Md [facility] Final R esult [facility] [address] [place] [address], [id number] documented in this encounter Visit Diagnoses Not on filedocumented in this encounter
--- OUTSIDE RECORDS SUMMARY | 2024-03-20 12:06 | XMS_ITS | Encounter Summary ---
Author Organization [facility] Address [address] [place] [address]. 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 [address], [id number] documented in this encounter Visit Diagnoses Not on filedocumented in this encounter
--- OUTSIDE RECORDS SUMMARY | 2024-03-20 12:06 | XMS_ITS | Encounter Summary ---
Author Organization [facility] Address [address] [place] [address]. 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 Gender Identity Not on file Sexual Orientation Not on file documented as of this encounter Plan of Treatment Not on file documented as of this encounter Procedures Procedure Name Priority Date/Time Associated Diagnosis Comments CBC W/DIFF AUTOMATED STAT 09/20/2016 2:44 PM CDT documented in this encounter Results * (ABNORMAL) CBC W/DIFF AUTOMATED (09/20/2016 2:44 PM CDT) WBC 4.0 4.0 - 10.8 x10'3/uL 09/20/2016 1:50 PM CDT [facility] RBC 2.72(L) 4.10 - 5.40 x10'6/uL 09/20/2016 1:50 PM CDT [facility] HGB 9.4(L) 12.0 - 16.0 G/DL 09/20/2016 1:50 PM CDT [facility] HCT 26.3(L) 36.0 - 47.0 % 09/20/2016 1:50 PM CDT [facility] MCV 96.7 78.0 - 100.0 FL 09/20/2016 1:50 PM CDT [facility] MCH 34.6(H) 27.0 - 31.0 PG 09/20/2016 1:50 PM CDT [facility] MCHC 35.7 33.0 - 36.0 G/DL 09/20/2016 1:50 PM CDT [facility] RDW 12.6 11.5 - 14.5 % 09/20/2016 1:50 PM CDT [facility] PLT 57(L) 150 - 350 x10'3/uL 09/20/2016 1:50 PM CDT [facility] MPV 12.1(H) 7.4 - 10.4 FL 09/20/2016 1:50 PM CDT [facility] ABS. NEUTROPHILS TOTAL 2.41 1.60 - 8.30 x10'3/uL 09/20/2016 1:50 PM CDT [facility] ABS. LYMPHOCYTES 0.90 0.80 - 4.70 x10'3/uL 09/20/2016 1:50 PM CDT [facility] ABS. MONOCYTES 0.36 0.00 - 1.50 x10'3/uL 09/20/2016 1:50 PM CDT [facility] ABS. EOSINOPHILS 0.34 0.00 - 0.40 x10'3/uL 09/20/2016 1:50 PM CDT [facility] ABS. BASOPHILS 0.00 0.00 - 0.20 x10'3/uL 09/20/2016 1:50 PM CDT [facility] ABS. IMMATURE GRANULOCYTES 0.00 0.00 - 0.03 x10'3/uL 09/20/2016 1:50 PM CDT [facility] ABS. NUCLEATED RBC'S 0.00 0.0 x10'3/uL 09/20/2016 1:50 PM CDT [facility] PLASMA SPECIMEN / Unknown 09/20/2016 2:44 PM CDT 09/20/2016 1:45 PM CDT us Generic Conversion Md [facility] Final R esult [facility] [address] [place] [address], [id number] documented in this encounter Visit Diagnoses Not on filedocumented in this encounter
--- OUTSIDE RECORDS SUMMARY | 2024-03-20 12:06 | XMS_ITS | Encounter Summary ---
Author Organization [facility] Address [address] [place] [address]. 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 POTASSIUM S/P/B 6.2(HH) 3.5 - 5.0 MMOL/L 09/21/2016 12:[address] [facility] Comment: CRITICAL RESULT, SPECIMEN DATE, TIME WERE READ BACK BY ANSON mendez [id number] by . CHLORIDE S/P/B 115(H) 98 - 107 MMOL/L 09/21/2016 12:[address] [facility] CO2 12.0(L) 22 - 29 MMOL/L 09/21/2016 12:[address] [facility] GLUCOSE 99 70 - 109 MG/DL 09/21/2016 12:[address] [facility] BUN 39(H) 7 - 19 MG/DL 09/21/2016 12:[address] [facility] CREATININE S/P/B 2.92(H) 0.60 - 1.10 MG/DL 09/21/2016 12:[address] [facility] CALCIUM S/P/B 8.1(L) 8.4 - 10.2 MG/DL 09/21/2016 12:[address] [facility] EGFR NON-AFR. AMER. 19(L) >60 ML/MIN/1.7 3 M2 09/21/2016 12:[address] [facility] EGFR AFR. AMER. 22(L) >60 ML/MIN/1.7 3 M2 09/21/2016 12:[address] [facility] ANION GAP 11.0 MMOL/L 09/21/2016 12:[address] [facility] OSMOLALITY (CALC) 285 MOSM/KG 09/21/2016 12:[address] [facility] PLASMA SPECIMEN / Unknown 09/21/2016 12:41 PM CDT 09/21/2016 12:18 PM CDT us Generic Conversion Md [facility] Final R esult [facility] [address] [place] [address], [id number] documented in this encounter Visit Diagnoses Not on filedocumented in this encounter
--- OUTSIDE RECORDS SUMMARY | 2024-03-20 12:06 | XMS_ITS | Encounter Summary ---
Author Organization [facility] Address [address] [place] [address]. 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 Gender Identity Not on file Sexual Orientation Not on file documented as of this encounter Plan of Treatment Not on file documented as of this encounter Procedures Procedure Name Priority Date/Time Associated Diagnosis Comments POCT GLUCOSE - MAGAÑA DOCKED DEVICE Routine 09/21/2016 12:00 AM CDT documented in this encounter Results * POCT glucose (09/21/2016 12:00 AM CDT) GLUCOSE POC 83 70 - 109 09/20/2016 11:40 PM CDT [facility] ORDERS INTERFACE Comment:RN Notified WHOLE BLOOD SPECIMEN / Unknown 09/21/2016 09/20/2016 11:40 PM CDT us Generic Conversion Md [facility] POCT ORDERABLES - DEVIC E Final Result [facility] ORDERS INTERFACE US documented in this encounter Visit Diagnoses Not on filedocumented in this encounter
--- OUTSIDE RECORDS SUMMARY | 2024-03-20 12:06 | XMS_ITS | Encounter Summary ---
Author Organization [facility] Address [address] [place] [address]. 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 Optimal blood drug levels are influenced by type of transplant, patient response, time post- transplant, co-administration of other drugs, and drug formulation. The following trough range is a suggested guideline: ? 5.0-20.0 mcg/L Test Performed by [facility], [address] [place] [address] Héctor Avalos M.D., Ph.D., Director of Laboratories , [place] [id number] WHOLE BLOOD SPECIMEN / Unknown 09/21/2016 12:41 PM CDT 09/21/2016 11:42 AM CDT us Generic Conversion Md [facility] Final R esult [facility] [address] [place] [address], [id number] documented in this encounter Visit Diagnoses Not on filedocumented in this encounter
--- OUTSIDE RECORDS SUMMARY | 2024-03-20 12:06 | XMS_ITS | Encounter Summary ---
Author Organization [facility] Address [address] [place] [address]. 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 [address], [place] [phone] [id number] documented in this encounter Visit Diagnoses Not on filedocumented in this encounter
--- OUTSIDE RECORDS SUMMARY | 2024-03-20 12:06 | XMS_ITS | Encounter Summary ---
Author Organization [facility] Address [address] [place] [address]. 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 Gender Identity Not on file Sexual Orientation Not on file documented as of this encounter Plan of Treatment Not on file documented as of this encounter Procedures Procedure Name Priority Date/Time Associated Diagnosis Comments CULTURE, BACTERIA, BLOOD NOW 09/20/2016 6:19 PM CDT documented in this encounter Results * CULTURE, BACTERIA, BLOOD (09/20/2016 6:19 PM CDT) SPEC DESCRIPTION BLOOD 09/20/2016 5:01 PM CDT [facility] SPECIAL REQUESTS NO SPECIAL REQUEST 09/20/2016 5:01 PM CDT [facility] CULTURE RESULT NO GROWTH 5 DAYS 09/25/2016 10:47 PM CDT [facility] BLOOD SPECIMEN OBTAINED FOR BLOOD CULTURE / Unknown 09/20/2016 6:19 PM CDT 09/20/2016 5:26 PM CDT us Generic Conversion Md [facility] MICROBIOLOGY - GENERAL ORDERABLES Final Result [facility] [address] [place] [address], [place] [phone] [id number] documented in this encounter Visit Diagnoses Not on filedocumented in this encounter
--- OUTSIDE RECORDS SUMMARY | 2024-03-20 12:06 | XMS_ITS | Encounter Summary ---
Author Organization [facility] Address [address] [place] [address]. 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 [address], [id number] documented in this encounter Visit Diagnoses Not on filedocumented in this encounter
--- OUTSIDE RECORDS SUMMARY | 2024-03-20 12:06 | XMS_ITS | Encounter Summary ---
Author Organization [facility] Address [address] [place] [address]. 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 Gender Identity Not on file Sexual Orientation Not on file documented as of this encounter Plan of Treatment Not on file documented as of this encounter Procedures Procedure Name Priority Date/Time Associated Diagnosis Comments AMYLASE Routine 09/21/2016 12:41 PM CDT documented in this encounter Results * AMYLASE (09/21/2016 12:41 PM CDT) AMYLASE S/P/B 63 25 - 125 UNITS/L 09/21/2016 12:05 PM CDT [facility] SERUM OR PLASMA SPECIMEN / Unknown 09/21/2016 12:41 PM CDT 09/21/2016 11:42 AM CDT us Generic Conversion [facility] Final R esult [facility] [address] [place], [place] [address] [phone] [id number] documented in this encounter Visit Diagnoses Not on filedocumented in this encounter
--- OUTSIDE RECORDS SUMMARY | 2024-03-20 12:06 | XMS_ITS | Encounter Summary ---
Author Organization [facility] Address [address] [place] [address]. [address] Care Team Providers Care Package Line Operator Name Role Phone Unavailable Primary Care Provider Unavailabl e Encounter Details Date Type Department Care Team (Late st Contact Info) Description 09/21/2016 Orders Only [place] [address] , Generic Conversion, Social History Tobacco Use Types Packs/Day Years Used Date Smoking Tobacco: Never Assessed Comments Unknown Sex and Gender Information Value Date Recorded Sex Assigned at Not on file Legal Sex Female 9:15 PM SUPPORT TEAM MEMBER Gender Identity Not on file Sexual Orientation Not on file documented as of this encounter Plan of Treatment Not on file documented as of this encounter Procedures Procedure Name Priority Date/Time Associated Diagnosis Comments URINALYSIS Nurse Collected Priority 09/21/2016 10:30 AM CDT documented in this encounter Results * (ABNORMAL) URINALYSIS (09/21/2016 10:30 AM CDT) COLOR (U) YELLOW 09/21/2016 9:45 PM CDT [facility] TRANSPARENCY HAZY 09/21/2016 9:45 PM CDT [facility] SPECIFIC GRAVITY (U) 1.015 1.002 - 1.035 09/21/2016 9:45 PM CDT [facility] U PH 5.0 5 - 8 09/21/2016 9:45 PM CDT [facility] PROTEIN (U) 30(A) NEGATIVE 09/21/2016 9:45 PM CDT [facility] URINE GLUCOSE NEGATIVE NEGATIVE MG/DL 09/21/2016 9:45 PM CDT [facility] KETONES MG/DL (U) NEGATIVE NEGATIVE 09/21/2016 9:45 PM CDT [facility] BILIRUBIN (U) NEGATIVE NEGATIVE 09/21/2016 9:45 PM CDT [facility] BLOOD (U) NEGATIVE NEGATIVE 09/21/2016 9:45 PM CDT [facility] NITRITES NEGATIVE NEGATIVE 09/21/2016 9:45 PM CDT [facility] UROBILINOGEN NORMAL 0 - 1 EU/DL 09/21/2016 9:45 PM CDT [facility] LEUKOCYTES (U) NEGATIVE NEGATIVE 09/21/2016 9:45 PM CDT [facility] RBC/HPF <1 /HPF 09/21/2016 9:45 PM CDT [facility] WBC/HPF <1 /HPF 09/21/2016 9:45 PM CDT [facility] BACTERIA (U) PRESENT /HPF 09/21/2016 9:45 PM CDT [facility] SQUAMOUS EPITHELIALS 6 09/21/2016 9:45 PM CDT [facility] HYALINE CASTS 9 09/21/2016 9:45 PM CDT [facility] URINE SPECIMEN / Unknown 09/21/2016 10:30 AM CDT 09/21/2016 9:37 PM CDT us Generic Conversion Md [facility] URINE ORDERABLES Final Result [facility] [address] [place] [address], [id number] documented in this encounter Visit Diagnoses Not on filedocumented in this encounter
--- OUTSIDE RECORDS SUMMARY | 2024-03-20 12:07 | XMS_ITS | Encounter Summary ---
Author Organization [facility] Address [address] [place] [address]. [place], [place] [address] [place] [address] Care Team Providers Care Nuclear Pharmacist Name Role Phone Unavailable Primary Care Provider Unavailabl e Encounter Details Date Type Department Care Team (Late st Contact Info) Description 09/20/2016 Abstract [facility] Emergency [address] [place] [address] Eric Kovacs MD Zaidi, Fawwad, MD [address] [place] [address] [place] [address] Social History Tobacco Use Types Packs/Day Years Used Date Smoking Tobacco: Never Assessed Comments Unknown Sex and Gender Information Value Date Recorded Sex Assigned at Not on file Legal Sex Female 9:15 PM PRINTED CIRCUIT BOARDS BEVELER Gender Identity Not on file Sexual Orientation Not on file documented as of this encounter Plan of Treatment Not on file documented as of this encounter Visit Diagnoses Diagnosis 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
--- OUTSIDE RECORDS SUMMARY | 2024-03-20 12:07 | XMS_ITS | Encounter Summary ---
Author Organization [facility] Address [address] [place] [address]. [place] [address] [place] [address] Care Team Providers Care Web Design Intern Name Role Phone Ashley ZUNIGA MD, Hermes Perez Primary Care Provid er Encounter Details Date Type Department Care Team (Late st Contact Info) Description 06/25/2016 Abstract [place] [facility] [address] [place] [address] Cristi Bryant MD [address] [place] [address] Social History Tobacco Use Types Packs/Day Years Used Date Smoking Tobacco: Never Assessed Comments Unknown Sex and Gender Information Value Date Recorded Sex Assigned at Not on file Legal Sex Female 9:15 PM SENIOR CAREGIVER Gender Identity Not on file Sexual Orientation Not on file documented as of this encounter Plan of Treatment Not on file documented as of this encounter Visit Diagnoses Diagnosis Headache documented in this encounter Care Teams Web Design Intern Relationship Specialty Start Date End Date Hermes Ramirez III, MD [address] [facility] [address] [place] [address] PCP - General FAMILY PRACTICE 06/20/17 documented as of this encounter
--- OUTSIDE RECORDS SUMMARY | 2024-03-20 12:07 | XMS_ITS | Encounter Summary ---
Author Organization [facility] Address [address] [place] [address]. [place], [place] [address] [place] [address] Care Team Providers Care Ingredient Handler Name Role Phone Ashley ZUNIGA MD, Hermes Perez Primary Care Provid er Encounter Details Date Type Department Care Team (Latest Contact Info) Description 05/11/2016 Abstract [facility] Social History Tobacco Use Types Packs/Day Years Used Date Smoking Tobacco: Never Assessed Comments Unknown Sex and Gender Information Value Date Recorded Sex Assigned at Not on file Legal Sex Female 9:15 PM SHINGLE TRIMMER Gender Identity Not on file Sexual Orientation Not on file documented as of this encounter Plan of Treatment Not on file documented as of this encounter Visit Diagnoses Not on filedocumented in this encounter Care Teams Ingredient Handler Relationship Specialty Start Date End Date Hermes Ramirez III, MD [address] [facility] [address] [place] [address] PCP - General FAMILY PRACTICE 06/20/17 documented as of this encounter
--- OUTSIDE RECORDS SUMMARY | 2024-03-20 12:07 | XMS_ITS | Encounter Summary ---
Author Organization [facility] Address [address] [place] [address]. [place] [address] [place] [address] Care Team Providers Care Back Up Worker Name Role Phone Unavailable Primary Care Provider Unavailabl e Encounter Details Date Type Department Care Team (Late st Contact Info) Description 05/10/2016 Orders [place] [address] , Generic Conversion, Social History Tobacco Use Types Packs/Day Years Used Date Smoking Tobacco: Never Assessed Comments Unknown Sex and Gender Information Value Date Recorded Sex Assigned at Not on file Legal Sex Female 9:15 PM NUTRITIONIST Gender Identity Not on file Sexual Orientation Not on file documented as of this encounter Plan of Treatment Not on file documented as of this encounter Procedures Procedure Name Priority Date/Time Associated Diagnosis Comments CULTURE STREP A Nurse Collected Priority 05/10/2016 6:02 PM NUTRITIONIST documented in this encounter Results * CULTURE STREP A (05/10/2016 6:02 PM NUTRITIONIST) SPEC DESCRIPTION THROAT 05/10/2016 6:02 PM NUTRITIONIST [facility] SPECIAL REQUESTS NO SPECIAL REQUEST 05/10/2016 6:02 PM NUTRITIONIST [facility] CULTURE RESULT NO STREPTOCOCCUS PYOGENES (GROUP A) ISOLATED 05/12/2016 8:29 PM NUTRITIONIST [facility] THROAT SWAB / Unknown 05/10/2016 6:02 PM NUTRITIONIST 05/10/2016 6:30 PM NUTRITIONIST us Generic Conversion Md [facility] MICROBIOLOGY - GENERAL ORDERABLES Final Result [facility] [address] [place] [address], [place] [phone] [id number] [facility] [address] [place] [address], [place] [phone] [id number] documented in this encounter Visit Diagnoses Not on filedocumented in this encounter
--- OUTSIDE RECORDS SUMMARY | 2024-03-20 12:07 | XMS_ITS | Encounter Summary ---
Author Organization [facility] Address [address] [place] [address]. [place] [address] [place] [address] Care Team Providers Care Lithographic Proofer Apprentice Name Role Phone Ashley ZUNIGA MD, Hermes Perez Primary Care Provid er Encounter Details Date Type Department Care Team (Late st Contact Info) Description 06/16/2016 Abstract [facility] [address] [facility] [place] [address] Akil Soriano MD [address] [place] [address] Social History Tobacco Use Types Packs/Day Years Used Date Smoking Tobacco: Never Assessed Comments Unknown Sex and Gender Information Value Date Recorded Sex Assigned at Not on file Legal Sex Female 9:15 PM BAG WORKER Gender Identity Not on file Sexual Orientation Not on file documented as of this encounter Plan of Treatment Not on file documented as of this encounter Visit Diagnoses Diagnosis Headache documented in this encounter Care Teams Lithographic Proofer Apprentice Relationship Specialty Start Date End Date Hermes Ramirez III, MD [address] [facility] [address] [place] [address] PCP - General FAMILY PRACTICE 06/20/17 documented as of this encounter
--- OUTSIDE RECORDS SUMMARY | 2024-03-20 12:07 | XMS_ITS | Encounter Summary ---
Author Organization [facility] Address [address] [place] [address]. [place] [address] [place] [address] Care Team Providers Care Physical Sciences Professor Name Role Phone Unavailable Primary Care Provider Unavailabl e Encounter Details Date Type Department Care Team (Late st Contact Info) Description 05/31/2016 Emergency [place] [facility] [address] [facility] [place] [address] Christian Eckert MD [address] [address] Social History Tobacco Use Types Packs/Day Years Used Date Smoking Tobacco: Never Assessed Comments Unknown Sex and Gender Information Value Date Recorded Sex Assigned at Not on file Legal Sex Female 9:15 PM STATISTICAL MACHINE SERVICER Gender Identity Not on file Sexual Orientation Not on file documented as of this encounter Plan of Treatment Not on file documented as of this encounter Visit Diagnoses Diagnosis Migraine without status migrainosus, not intractable Migraine, unspecified, without mention of intractable migraine without mention of status migrainosus documented in this encounter
--- OUTSIDE RECORDS SUMMARY | 2024-03-20 12:07 | XMS_ITS | Encounter Summary ---
Author Organization [facility] Address [address] [place] [address]. [place] [address] [place] [address] Care Team Providers Care Stage Electrician Helper Name Role Phone Ashley ZUNIGA MD, Hermes Perez Primary Care Provid er Encounter Details Date Type Department Care Team (Late st Contact Info) Description 05/02/2016 Abstract [facility] [facility] [address] [facility] [place] [address] Social History Tobacco Use Types Packs/Day Years [...] as of this encounter Visit Diagnoses Diagnosis Noninfective gastroenteritis and colitis Other and unspecified noninfectious gastroenteritis and colitis documented in this encounter Care Teams Stage Electrician Helper Relationship Specialty Start Date End Date Hermes Ramirez III, MD [address] [facility] [address] [place] [address] PCP - General FAMILY PRACTICE 06/20/17 documented as of this encounter
--- OUTSIDE RECORDS SUMMARY | 2024-03-20 12:07 | XMS_ITS | Encounter Summary ---
Author Organization [facility] Address [address] [place] [address]. [place], [place] [address] [place] [address] Care Team Providers Care Staff Veterinarian Name Role Phone Unavailable Primary Care Provider Unavailabl e Encounter Details Date Type Department Care Team (Late st Contact Info) Description 09/02/2016 Emergency [place] [facility] [address] [facility] [place] [address] Mona Galindo, PROCESSING TALC AND BORATE SUPERVISOR [address] [place] [address] Social History Tobacco Use Types Packs/Day Years Used Date Smoking Tobacco: Never Assessed Comments Unknown Sex and Gender Information Value Date Recorded Sex Assigned at Not on file Legal Sex Female 9:15 PM VIDEO ARCADE MANAGER Gender Identity Not on file Sexual Orientation Not on file documented as of this encounter Plan of Treatment Not on file documented as of this encounter Visit Diagnoses Diagnosis Pain in left shoulder Pain in joint, shoulder region documented in this encounter
--- OUTSIDE RECORDS SUMMARY | 2024-03-20 12:07 | XMS_ITS | Encounter Summary ---
Author Organization [facility] Address [address] [place] [address]. [place], [place] [address] [place] [address] Care Team Providers Care Environmental Specialist Name Role Phone Unavailable Primary Care Provider Unavailabl e Encounter Details Date Type Department Care Team (Late st Contact Info) Description 04/26/2016 Emergency [facility] Emergency [address] [place] [address] Judith Santos, INTEGRATED MARKETING MANAGER-BC Social History Tobacco Use Types Packs/Day Years Used Date Smoking Tobacco: Never Assessed Comments Unknown Sex and Gender Information Value Date Recorded Sex Assigned at Not on file Legal Sex Female 9:15 PM MOTOR INSTALLER Gender Identity Not on file Sexual Orientation Not on file documented as of this encounter Plan of Treatment Not on file documented as of this encounter Visit Diagnoses Diagnosis Headache documented in this encounter
--- OUTSIDE RECORDS SUMMARY | 2024-03-20 12:07 | XMS_ITS | Encounter Summary ---
Author Organization [facility] Address [address] [place] [address]. [place], [place] [address] [place] [address] Care Team Providers Care Marine Steam Fitter Helper Name Role Phone Ashley ZUNIGA MD, Hermes Perez Primary Care Provid er Encounter Details Date Type Department Care Team (Latest Contact Info) Description 06/24/2016 Abstract [facility] Medical Group Social History Tobacco Use Types Packs/Day Years Used Date Smoking Tobacco: Never Assessed Comments Unknown Sex and Gender Information Value Date Recorded Sex Assigned at Not on file Legal Sex Female 9:15 PM SCIENTIFIC PROGRAMMER Gender Identity Not on file Sexual Orientation Not on file documented as of this encounter Plan of Treatment Not on file documented as of this encounter Visit Diagnoses Not on filedocumented in this encounter Care Teams Marine Steam Fitter Helper Relationship Specialty Start Date End Date Hermes Ramirez III, MD [address] [facility] [address] [place] [address] PCP - General FAMILY PRACTICE 06/20/17 documented as of this encounter
--- OUTSIDE RECORDS SUMMARY | 2024-03-20 12:07 | XMS_ITS | Encounter Summary ---
Author Organization [facility] Address [address] [place] [address]. [place] [address] [place] [address] Care Team Providers Care Steeler Name Role Phone Unavailable Primary Care Provider Unavailabl e Encounter Details Date Type Department Care Team (Late st Contact Info) Description 06/21/[address] [facility] Emergency [address] [place] [address] Letha Mitchell FNP [address] [id number] Social History Tobacco Use Types Packs/Day Years Used Date Smoking Tobacco: Never Assessed Comments Unknown Sex and Gender Information Value Date Recorded Sex Assigned at Not on file Legal Sex Female 9:15 PM ELECTRICIAN STATION ASSISTANT Gender Identity Not on file Sexual Orientation Not on file documented as of this encounter Plan of Treatment Not on file documented as of this encounter Visit Diagnoses Diagnosis Acute sinusitis Acute sinusitis, unspecified documented in this encounter
--- OUTSIDE RECORDS SUMMARY | 2024-03-20 12:07 | XMS_ITS | Encounter Summary ---
Author Organization [facility] Address [address] [place] [address]. [place], [place] [address] [place] [address] Care Team Providers Care Progress Developer Name Role Phone Ashley ZUNIGA MD, Hermes Perez Primary Care Provid er Encounter Details Date Type Department Care Team (Latest Contact Info) Description 06/20/2016 Abstract [facility] Social History Tobacco Use Types Packs/Day Years Used Date Smoking Tobacco: Never Assessed Comments Unknown Sex and Gender Information Value Date Recorded Sex Assigned at Not on file Legal Sex Female 9:15 PM SIGN CARPENTER Gender Identity Not on file Sexual Orientation Not on file documented as of this encounter Plan of Treatment Not on file documented as of this encounter Visit Diagnoses Not on filedocumented in this encounter Care Teams Progress Developer Relationship Specialty Start Date End Date Hermes Ramirez III, MD [address] [facility] [address] [place] [address] PCP - General FAMILY PRACTICE 06/20/17 documented as of this encounter
--- OUTSIDE RECORDS SUMMARY | 2024-03-20 12:07 | XMS_ITS | Encounter Summary ---
Author Organization [facility] Address [address] [place] [address]. [place] [address] [place] [address] Care Team Providers Care Clinical Laboratory Manager Name Role Phone Unavailable Primary Care Provider Unavailabl e Encounter Details Date Type Department Care Team (Late st Contact Info) Description 05/10/2016 Orders [place] [address] , Generic Conversion, Social History Tobacco Use Types Packs/Day Years Used Date Smoking Tobacco: Never Assessed Comments Unknown Sex and Gender Information Value Date Recorded Sex Assigned at Not on file Legal Sex Female 9:15 PM ETL DATA ARCHITECT Gender Identity Not on file Sexual Orientation Not on file documented as of this encounter Plan of Treatment Not on file documented as of this encounter Procedures Procedure Name Priority Date/Time Associated Diagnosis Comments RAPID STREP A Nurse Collected Priority 05/10/2016 6:02 PM ETL DATA ARCHITECT documented in this encounter Results * RAPID STREP A (05/10/2016 6:02 PM ETL DATA ARCHITECT) SPEC DESCRIPTION THROAT 05/10/2016 6:02 PM ETL DATA ARCHITECT [facility] SPECIAL REQUESTS NO SPECIAL REQUEST 05/10/2016 6:02 PM ETL DATA ARCHITECT [facility] RAPID STREP TEST NEGATIVE FOR GROUP A BETA STREP 05/10/2016 6:44 PM ETL DATA ARCHITECT [facility] THROAT SWAB / Unknown 05/10/2016 6:02 PM ETL DATA ARCHITECT 05/10/2016 6:30 PM ETL DATA ARCHITECT us Generic Conversion Md [facility] MICROBIOLOGY - GENERAL ORDERABLES Final Result [facility] [address] [place] [address], [id number] documented in this encounter Visit Diagnoses Not on filedocumented in this encounter
--- OUTSIDE RECORDS SUMMARY | 2024-03-20 12:07 | XMS_ITS | Encounter Summary ---
Author Organization [facility] Address [address] [place] [address]. [place], [place] [address] [place] [address] Care Team Providers Care Preparation Supervisor Canning Name Role Phone Unavailable Primary Care Provider Unavailabl e Encounter Details Date Type Department Care Team (Late st Contact Info) Description 05/10/2016 Emergency [facility] Emergency [address] [place] [address] Judith Santos, FLOORING MACHINE OPERATOR-BC Social History Tobacco Use Types Packs/Day Years Used Date Smoking Tobacco: Never Assessed Comments Unknown Sex and Gender Information Value Date Recorded Sex Assigned at Not on file Legal Sex Female 9:15 PM BIODIESEL PLANT OPERATIONS ENGINEER Gender Identity Not on file Sexual Orientation Not on file documented as of this encounter Plan of Treatment Not on file documented as of this encounter Visit Diagnoses Diagnosis Anxiety disorder Anxiety state, unspecified documented in this encounter
--- OUTSIDE RECORDS SUMMARY | 2024-03-20 12:07 | XMS_ITS | Encounter Summary ---
Author Organization [facility] Address [address] [place] [address]. [place] [address] [place] [address] Care Team Providers Care Prop Maker Name Role Phone Unavailable Primary Care Provider Unavailabl e Encounter Details Date Type Department Care Team (Late st Contact Info) Description 09/08/[address] [facility] Emergency [address] [place] [address] Jimy Ramirez, APNP [address] [place] [address] Social History Tobacco Use Types Packs/Day Years Used Date Smoking Tobacco: Never Assessed Comments Unknown Sex and Gender Information Value Date Recorded Sex Assigned at Not on file Legal Sex Female 9:15 PM PSYCH SALES SPECIALIST Gender Identity Not on file Sexual Orientation Not on file documented as of this encounter Plan of Treatment Not on file documented as of this encounter Visit Diagnoses Diagnosis Strain of muscle and tendon of back wall of thorax, initial encounter documented in this encounter
--- OUTSIDE RECORDS SUMMARY | 2024-03-20 12:07 | XMS_ITS | Encounter Summary ---
Author Organization [facility] Address [address] [place] [address]. [place] [address] [place] [address] Care Team Providers Care Hospitalist Physician Name Role Phone Ashley ZUNIGA MD, Hermes Perez Primary Care Provid er Encounter Details Date Type Department Care Team (Late st Contact Info) Description 06/30/2016 Abstract [place] [facility] [address] [facility] [address] Ziyad Hu MD [address] [place] [id number] Social History Tobacco Use Types Packs/Day Years Used Date Smoking Tobacco: Never Assessed Comments Unknown Sex and Gender Information Value Date Recorded Sex Assigned at Not on file Legal Sex Female 9:15 PM SECOND GRADE TEACHER Gender Identity Not on file Sexual Orientation Not on file documented as of this encounter Plan of Treatment Not on file documented as of this encounter Visit Diagnoses Diagnosis Headache documented in this encounter Care Teams Hospitalist Physician Relationship Specialty Start Date End Date Hermes Ramirez III, MD [address] [facility] [address] [place] [address] PCP - General FAMILY PRACTICE 06/20/17 documented as of this encounter
--- OUTSIDE RECORDS SUMMARY | 2024-03-20 12:07 | XMS_ITS | Encounter Summary ---
Author Organization [facility] Address [address] [place] [address]. [place] [address] [place] [address] Care Team Providers Care Field Service Consultant Name Role Phone Unavailable Primary Care Provider Unavailabl e Encounter Details Date Type Department Care Team (Late st Contact Info) Description 06/19/2016 Emergency [facility] [address] [facility] [place] [address] Su Mays MD [address] [address] Social History Tobacco Use Types Packs/Day Years Used Date Smoking Tobacco: Never Assessed Comments Unknown Sex and Gender Information Value Date Recorded Sex Assigned at Not on file Legal Sex Female 9:15 PM SCHOOL LIBRARY MEDIA PROGRAM DIRECTOR Gender Identity Not on file Sexual Orientation Not on file documented as of this encounter Plan of Treatment Not on file documented as of this encounter Visit Diagnoses Diagnosis Headache documented in this encounter
--- OUTSIDE RECORDS SUMMARY | 2024-03-20 12:07 | XMS_ITS | Encounter Summary ---
Author Organization [facility] Address [address] [place] [address]. [place] [address] [place] [address] Care Team Providers Care Senior Telecommunications Specialist Name Role Phone Ashley ZUNIGA MD, Hermes Perez Primary Care Provid er Encounter Details Date Type Department Care Team (Late st Contact Info) Description 05/06/2016 Abstract [facility] [address] [place] [address] Social History Tobacco Use Types Packs/Day Years Used Date Smoking Tobacco: Never Assessed Comments Unknown Sex and Gender Information Value Date Recorded Sex Assigned at Not on file Legal Sex Female 9:15 PM PIG CONVEYOR OPERATOR Gender Identity Not on file Sexual Orientation Not on file documented as of this encounter Plan of Treatment Not on file documented as of this encounter Visit Diagnoses Diagnosis Headache documented in this encounter Care Teams Senior Telecommunications Specialist Relationship Specialty Start Date End Date Hermes Ramirez III, MD [address] [facility] [address] [place] [address] PCP - General FAMILY PRACTICE 06/20/17 documented as of this encounter
--- OUTSIDE RECORDS SUMMARY | 2024-03-20 12:07 | XMS_ITS | Encounter Summary ---
Author Organization [facility] Address [address] [place] [address]. [place], [place] [address] [place] [address] Care Team Providers Care Application Architect Manager Name Role Phone Ashley ZUNIGA MD, Hermes Perez Primary Care Provid er Encounter Details Date Type Department Care Team (Latest Contact Info) Description 09/19/2016 Abstract [facility] Medical Group Social History Tobacco Use Types Packs/Day Years Used Date Smoking Tobacco: Never Assessed Comments Unknown Sex and Gender Information Value Date Recorded Sex Assigned at Not on file Legal Sex Female 9:15 PM RAMP AGENT Gender Identity Not on file Sexual Orientation Not on file documented as of this encounter Plan of Treatment Not on file documented as of this encounter Visit Diagnoses Not on filedocumented in this encounter Care Teams Application Architect Manager Relationship Specialty Start Date End Date Hermes Ramirez III, MD [address] [facility] [address] [place] [address] PCP - General FAMILY PRACTICE 06/20/17 documented as of this encounter
--- OUTSIDE RECORDS SUMMARY | 2024-03-20 12:07 | XMS_ITS | Encounter Summary ---
Author Organization [facility] Address [address] [place] [address]. 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
--- OUTSIDE RECORDS SUMMARY | 2024-03-20 12:07 | XMS_ITS | Encounter Summary ---
Author Organization [facility] Address [address] [place] [address]. [place], [place] [address] [place] [address] Care Team Providers Care Svp Innovation Partnerships Name Role Phone Unavailable Primary Care Provider Unavailabl e Encounter Details Date Type Department Care Team (Late st Contact Info) Description 06/14/[address] 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
--- OUTSIDE RECORDS SUMMARY | 2024-03-20 12:08 | XMS_ITS | Encounter Summary ---
Author Organization [facility] Address [address] [place] [address]. 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
--- OUTSIDE RECORDS SUMMARY | 2024-03-20 12:08 | XMS_ITS | Encounter Summary ---
Author Organization [facility] Address [address] [place] [address]. 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 Gender Identity Not on file Sexual Orientation Not on file documented as of this encounter Plan of Treatment Not on file documented as of this encounter Procedures Procedure Name Priority Date/Time Associated Diagnosis Comments CBC W/DIFF AUTOMATED STAT 12/30/2015 8:02 PM CDT documented in this encounter Results * (ABNORMAL) CBC W/DIFF AUTOMATED (12/30/2015 8:02 PM CDT) WBC 4.0 4.0 - 10.8 x10'3/uL 12/30/2015 8:14 PM CDT [facility] RBC 2.96(L) 4.10 - 5.40 x10'6/uL 12/30/2015 8:14 PM CDT [facility] HGB 10.0(L) 12.0 - 16.0 G/DL 12/30/2015 8:14 PM CDT [facility] HCT 28.9(L) 36.0 - 47.0 % 12/30/2015 8:14 PM CDT [facility] MCV 97.6 78.0 - 100.0 FL 12/30/2015 8:14 PM CDT [facility] MCH 33.8(H) 27.0 - 31.0 PG 12/30/2015 8:14 PM CDT [facility] MCHC 34.6 33.0 - 36.0 G/DL 12/30/2015 8:14 PM CDT [facility] RDW 13.1 11.5 - 14.5 % 12/30/2015 8:14 PM CDT [facility] PLT 54(L) 150 - 350 x10'3/uL 12/30/2015 8:59 PM CDT [facility] MPV 11.4(H) 7.4 - 10.4 FL 12/30/2015 8:59 PM CDT [facility] ABS. NEUTROPHILS TOTAL 2.46 1.60 - 8.30 x10'3/uL 12/30/2015 8:14 PM CDT [facility] ABS. LYMPHOCYTES 1.03 0.80 - 4.70 x10'3/uL 12/30/2015 8:14 PM CDT [facility] ABS. MONOCYTES 0.27 0.00 - 1.50 x10'3/uL 12/30/2015 8:14 PM CDT [facility] ABS. EOSINOPHILS 0.19 0.00 - 0.40 x10'3/uL 12/30/2015 8:14 PM CDT [facility] ABS. BASOPHILS 0.01 0.00 - 0.20 x10'3/uL 12/30/2015 8:14 PM CDT [facility] ABS. IMMATURE GRANULOCYTES 0.01 0.00 - 0.03 x10'3/uL 12/30/2015 8:14 PM CDT [facility] ABS. NUCLEATED RBC'S 0.00 0.0 x10'3/uL 12/30/2015 8:14 PM CDT [facility] PLASMA SPECIMEN / Unknown 12/30/2015 8:02 PM CDT 12/30/2015 8:04 PM CDT us Generic Conversion Md [facility] Final R esult [facility] [address] [place] [address], [id number] documented in this encounter Visit Diagnoses Not on filedocumented in this encounter
--- OUTSIDE RECORDS SUMMARY | 2024-03-20 12:08 | XMS_ITS | Encounter Summary ---
Author Organization [facility] Address [address] [place] [address]. 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
--- OUTSIDE RECORDS SUMMARY | 2024-03-20 12:08 | XMS_ITS | Encounter Summary ---
Author Organization [facility] Address [address] [place] [address]. [place] [address] [place] [address] Care Team Providers Care Guillotine Operator Name Role Phone Unavailable Primary Care Provider Unavailabl e Encounter Details Date Type Department Care Team (Late st Contact Info) Description 02/14/2016 Emergency [facility] Emergency [address] [place], [place] [address] Letha Mitchell FNP [address] [address] Social History Tobacco Use Types Packs/Day Years Used Date Smoking Tobacco: Never Assessed Comments Unknown Sex and Gender Information Value Date Recorded Sex Assigned at Not on file Legal Sex Female 9:15 PM FUNDING ANALYST Gender Identity Not on file Sexual Orientation Not on file documented as of this encounter Plan of Treatment Not on file documented as of this encounter Visit Diagnoses Diagnosis Headache documented in this encounter
--- OUTSIDE RECORDS SUMMARY | 2024-03-20 12:08 | XMS_ITS | Encounter Summary ---
Author Organization [facility] Address [address] [place] [address]. [place], [place] [address] [place] [address] Care Team Providers Care Pharmacovigilance Safety Expert Name Role Phone Ashley ZUNIGA MD, Hermes Perez Primary Care Provid er Encounter Details Date Type Department Care Team (Late st Contact Info) Description 01/08/2016 Abstract [facility] [address] [facility] [place] [address] Ziyad Hu MD [address] [place] [address] Social History Tobacco Use Types Packs/Day Years Used Date Smoking Tobacco: Never Assessed Comments Unknown Sex and Gender Information Value Date Recorded Sex Assigned at Not on file Legal Sex Female 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 [facility] ? [address] [place], [place] ??[address] ? Test Date: ?2016-01-08 Pat Name: ? MISHA JACKSON ?Department: ?? 1 ? Room: ? Gender: ? F ?Incubator Machine Operator: ?? SBEAL : ?1980 ? Requested By: CHANO LITTLEJOHN Order Number: [id number] ? Reading MD: ?? Hugo Lai ? Measurements Intervals ?[place] ? Rate: ? 91 ? P: ?-1 IA: ? 179 ?QRS: ?13 QRSD: ? 77 ? T: ?30 QT: ? 380 ? QTc: ?468 ? Interpretive Statements SINUS RHYTHM LOW QRS VOLTAGE IN PRECORDIAL LEADS ??[QRS DEFLECTION < 1.0 mV IN CHEST LEADS] ANTEROSEPTAL MYOCARDIAL INFARCTION , OF INDETERMINATE AGE [40+ ms Q WAVE IN V1-V4] Procedure Note , Generic Conversion, - 11/13/2018 [facility] [address] [place] [address] Test Date: 2016-01-08 Pat Name: MISHA JACKSON Department: 1 Room: Gender: F Incubator Machine Operator: INDIO : 1980 Requested By: CHANO LITTLEJOHN Order Number: [id number] Reading MD: Hugo Hoyt Measurements Intervals [place] Rate: 91 P: -1 IA: 179 QRS: 13 QRSD: 77 T: 30 QT: 380 QTc: 468 Interpretive Statements SINUS RHYTHM LOW QRS VOLTAGE IN PRECORDIAL LEADS [QRS DEFLECTION < 1.0 mV IN CHESTLEADS] ANTEROSEPTAL MYOCARDIAL INFARCTION , OF INDETERMINATE AGE [40+ ms Q WAVEIN V1-V4] us Generic Conversion Md [facility] ECG ORDERABLES Final R esult [facility] documented in this encounter Visit Diagnoses Diagnosis Headache documented in this encounter Care Teams Pharmacovigilance Safety Expert Relationship Specialty Start Date End Date Hermes Ramirez III, MD [address] [facility] [address] [place] [address] PCP - General FAMILY PRACTICE 06/20/17 documented as of this encounter
--- OUTSIDE RECORDS SUMMARY | 2024-03-20 12:08 | XMS_ITS | Encounter Summary ---
Author Organization [facility] Address [address] [place] [address]. 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
--- OUTSIDE RECORDS SUMMARY | 2024-03-20 12:08 | XMS_ITS | Encounter Summary ---
Author Organization [facility] Address [address] [place] [address]. [place] [address] [place] [address] Care Team Providers Care Manager Case Name Role Phone Unavailable Primary Care Provider Unavailabl e Encounter Details Date Type Department Care Team (Late st Contact Info) Description 01/12/2016 Emergency [facility] Emergency [address] [place] [address] Victor Manuel Jaime PA [address] [facility] [address] [place] [address] Social History Tobacco Use Types Packs/Day Years Used Date Smoking Tobacco: Never Assessed Comments Unknown Sex and Gender Information Value Date Recorded Sex Assigned at Not on file Legal Sex Female 9:15 PM SPORTS MANAGEMENT INTERNSHIP Gender Identity Not on file Sexual Orientation Not on file documented as of this encounter Plan of Treatment Not on file documented as of this encounter Visit Diagnoses Diagnosis Migraine without status migrainosus, not intractable Migraine, unspecified, without mention of intractable migraine without mention of status migrainosus documented in this encounter
--- OUTSIDE RECORDS SUMMARY | 2024-03-20 12:08 | XMS_ITS | Encounter Summary ---
Author Organization [facility] Address [address] [place] [address]. 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 [address] [place] [address] PCP - General FAMILY PRACTICE 06/20/17 documented as of this encounter
--- OUTSIDE RECORDS SUMMARY | 2024-03-20 12:08 | XMS_ITS | Encounter Summary ---
Author Organization [facility] Address [address] [place] [address]. [place] [address] [place] [address] Care Team Providers Care Surgery Scheduling Coordinator Name Role Phone Ashley ZUNIGA MD, Hermes Perez Primary Care Provid er Encounter Details Date Type Department Care Team (Late st Contact Info) Description 01/27/2016 Abstract [facility] [address] [facility] [place] [address] Social History Tobacco Use Types Packs/Day Years Used Date Smoking Tobacco: Never Assessed Comments Unknown Sex and Gender Information Value Date Recorded Sex Assigned at Not on file Legal Sex Female 9:15 PM CHAIN TENDER Gender Identity Not on file Sexual Orientation Not on file documented as of this encounter Plan of Treatment Not on file documented as of this encounter Visit Diagnoses Diagnosis Acute pharyngitis documented in this encounter Care Teams Surgery Scheduling Coordinator Relationship Specialty Start Date End Date Hermes Ramirez III, MD [address] [facility] [address] [place] [address] PCP - General FAMILY PRACTICE 06/20/17 documented as of this encounter
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
--- OUTSIDE RECORDS SUMMARY | 2024-03-20 12:08 | XMS_ITS | Encounter Summary ---
Author Organization [facility] Address [address] [place] [address]. [place], [place] [address] [place] [address] Care Team Providers Care Control Panel Operator Name Role Phone Ashley ZUNIGA MD, Hermes Perez Primary Care Provid er Encounter Details Date Type Department Care Team (Latest Contact Info) Description 01/13/2016 Abstract [facility] Medical Group Social History Tobacco Use Types Packs/Day Years Used Date Smoking Tobacco: Never Assessed Comments Unknown Sex and Gender Information Value Date Recorded Sex Assigned at Not on file Legal Sex Female 9:15 PM DOCTOR OF PHARMACY Gender Identity Not on file Sexual Orientation Not on file documented as of this encounter Plan of Treatment Not on file documented as of this encounter Visit Diagnoses Not on filedocumented in this encounter Care Teams Control Panel Operator Relationship Specialty Start Date End Date Hermes Ramirez III, MD [address] [facility] [address] [place] [address] PCP - General FAMILY PRACTICE 06/20/17 documented as of this encounter
--- OUTSIDE RECORDS SUMMARY | 2024-03-20 12:08 | XMS_ITS | Encounter Summary ---
Author Organization [facility] Address [address] [place] [address]. [place] [address] [place] [address] Care Team Providers Care Strategy Director Name Role Phone Unavailable Primary Care Provider Unavailabl e Encounter Details Date Type Department Care Team (Late st Contact Info) Description 12/30/2015 Orders Only [place] [address] , Generic Conversion, Social History Tobacco Use Types Packs/Day Years Used Date Smoking Tobacco: Never Assessed Comments Unknown Sex and Gender Information Value Date Recorded Sex Assigned at Not on file Legal Sex Female 9:15 PM SALT MINER Gender Identity Not on file Sexual Orientation Not on file documented as of this encounter Plan of Treatment Not on file documented as of this encounter Procedures Procedure Name Priority Date/Time Associated Diagnosis Comments BASIC METABOLIC PANEL STAT 12/30/2015 8:02 PM CDT documented in this encounter Results * (ABNORMAL) BASIC METABOLIC PANEL (12/30/2015 8:02 PM CDT) SODIUM S/P/B 139 135 - 147 MMOL/L 12/30/2015 8:26 PM CDT [facility] POTASSIUM S/P/B 4.5 3.5 - 5.0 MMOL/L 12/30/2015 8:26 PM CDT [facility] CHLORIDE S/P/B 110(H) 98 - 107 MMOL/L 12/30/2015 8:26 PM CDT [facility] CALCIUM S/P/B 8.7 8.4 - 10.2 MG/DL 12/30/2015 8:26 PM CDT [facility] CO2 19.8(L) 22 - 29 MMOL/L 12/30/2015 8:26 PM CDT [facility] GLUCOSE 87 70 - 109 MG/DL 12/30/2015 8:26 PM CDT [facility] BUN 41(H) 7 - 19 MG/DL 12/30/2015 8:26 PM CDT [facility] CREATININE S/P/B 2.39(H) 0.60 - 1.10 MG/DL 12/30/2015 8:26 PM CDT [facility] OSMOLALITY (CALC) 287 12/30/2015 8:26 PM CDT [facility] ANION GAP 9 MMOL/L 12/30/2015 8:26 PM CDT [facility] PLASMA SPECIMEN / Unknown 12/30/2015 8:02 PM CDT 12/30/2015 8:04 PM CDT us Generic Conversion Md [facility] Final R esult [facility] [place] [address], [id number] documented in this encounter Visit Diagnoses Not on filedocumented in this encounter
--- OUTSIDE RECORDS SUMMARY | 2024-03-20 12:08 | XMS_ITS | Encounter Summary ---
Author Organization [facility] Address [address] [place] [address]. [place] [address] [place] [address] Care Team Providers Care Judo Teacher Name Role Phone Ashley ZUNIGA MD, Hermes Perez Primary Care Provid er Encounter Details Date Type Department Care Team (Late st Contact Info) Description 04/17/2016 Abstract [facility] [address] [place] [address] Devan Richards MD [address] [place] [address] Social History Tobacco Use Types Packs/Day Years Used Date Smoking Tobacco: Never Assessed Comments Unknown Sex and Gender Information Value Date Recorded Sex Assigned at Not on file Legal Sex Female 9:15 PM LOCKER ATTENDANT Gender Identity Not on file Sexual Orientation Not on file documented as of this encounter Plan of Treatment Not on file documented as of this encounter Visit Diagnoses Diagnosis Migraine without status migrainosus, not intractable Migraine, unspecified, without mention of intractable migraine without mention of status migrainosus documented in this encounter Care Teams Judo Teacher Relationship Specialty Start Date End Date Hermes Ramirez III, MD [address] [facility] [address] [place] [address] PCP - General FAMILY PRACTICE 06/20/17 documented as of this encounter
--- OUTSIDE RECORDS SUMMARY | 2024-03-20 12:08 | XMS_ITS | Encounter Summary ---
Author Organization [facility] Address [address] [place] [address]. 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 Gender Identity Not on file Sexual Orientation Not on file documented as of this encounter Plan of Treatment Not on file documented as of this encounter Procedures Procedure Name Priority Date/Time Associated Diagnosis Comments URINALYSIS TIMED 12/30/2015 7:39 PM CDT documented in this encounter Results * URINALYSIS (12/30/2015 7:39 PM CDT) COLOR (U) LIGHT YELLOW 12/30/2015 7:54 PM CDT [facility] TRANSPARENCY CLEAR 12/30/2015 7:54 PM CDT [facility] SPECIFIC GRAVITY (U) 1.011 1.002 - 1.035 12/30/2015 7:54 PM CDT [facility] U PH 5.0 5 - 8 12/30/2015 7:54 PM CDT [facility] PROTEIN (U) NEGATIVE NEGATIVE 12/30/2015 7:54 PM CDT [facility] URINE GLUCOSE NEGATIVE NEGATIVE MG/DL 12/30/2015 7:54 PM CDT [facility] KETONES MG/DL (U) NEGATIVE NEGATIVE 12/30/2015 7:54 PM CDT [facility] BILIRUBIN (U) NEGATIVE NEGATIVE 12/30/2015 7:54 PM CDT [facility] BLOOD (U) NEGATIVE NEGATIVE 12/30/2015 7:54 PM CDT [facility] NITRITES NEGATIVE NEGATIVE 12/30/2015 7:54 PM CDT [facility] UROBILINOGEN NORMAL 0 - 1 EU/DL 12/30/2015 7:54 PM CDT [facility] LEUKOCYTES (U) NEGATIVE NEGATIVE 12/30/2015 7:54 PM CDT [facility] RBC/HPF 2 /HPF 12/30/2015 7:54 PM CDT [facility] WBC/HPF <1 /HPF 12/30/2015 7:54 PM CDT [facility] BACTERIA (U) NONE /HPF 12/30/2015 7:54 PM CDT [facility] SQUAMOUS EPITHELIALS 1 12/30/2015 7:54 PM CDT [facility] URINE SPECIMEN / Unknown 12/30/2015 7:39 PM CDT 12/30/2015 7:44 PM CDT us Generic Conversion Md [facility] URINE ORDERABLES Final Result [facility] [place] [address], [id number] documented in this encounter Visit Diagnoses Not on filedocumented in this encounter
--- OUTSIDE RECORDS SUMMARY | 2024-03-20 12:09 | XMS_ITS | Encounter Summary ---
Author Organization [facility] Address [address] [place] [address]. 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
--- OUTSIDE RECORDS SUMMARY | 2024-03-20 12:09 | XMS_ITS | Encounter Summary ---
Author Organization [facility] Address [address] [place] [address]. [place], [place] [address] [place] [address] Care Team Providers Care Construction Controller Name Role Phone Unavailable Primary Care Provider Unavailabl e Encounter Details Date Type Department Care Team (Late st Contact Info) Description 11/07/2015 Emergency [facility] Emergency [address] [place] [address] Jade Kitchen MD [address] [place] [address] Social History Tobacco Use Types Packs/Day Years Used Date Smoking Tobacco: Never Assessed Comments Unknown Sex and Gender Information Value Date Recorded Sex Assigned at Not on file Legal Sex Female 9:15 PM HEAD CLEANING PORTER Gender Identity Not on file Sexual Orientation Not on file documented as of this encounter Plan of Treatment Not on file documented as of this encounter Visit Diagnoses Diagnosis Migraine without status migrainosus, not intractable Migraine, unspecified, without mention of intractable migraine without mention of status migrainosus documented in this encounter
--- OUTSIDE RECORDS SUMMARY | 2024-03-20 12:09 | XMS_ITS | Encounter Summary ---
Author Organization [facility] Address [address] [place] [address]. [place] [address] [place] [address] Care Team Providers Care Metal Rivet Machine Operator Name Role Phone Unavailable Primary Care Provider Unavailabl e Encounter Details Date Type Department Care Team (Late st Contact Info) Description 10/05/2015 Orders [place] [address] , Generic Conversion, Social History Tobacco Use Types Packs/Day Years Used Date Smoking Tobacco: Never Assessed Comments Unknown Sex and Gender Information Value Date Recorded Sex Assigned at Not on file Legal Sex Female 9:15 PM TRAVEL ATTENDANTS Gender Identity Not on file Sexual Orientation Not on file documented as of this encounter Plan of Treatment Not on file documented as of this encounter Procedures Procedure Name Priority Date/Time Associated Diagnosis Comments URINALYSIS Nurse Collected Priority 10/05/2015 11:03 PM CDT documented in this encounter Results * (ABNORMAL) URINALYSIS (10/05/2015 11:03 PM CDT) COLOR (U) LIGHT YELLOW 10/05/2015 11:31 PM CDT [facility] TRANSPARENCY CLEAR 10/05/2015 11:31 PM CDT [facility] SPECIFIC GRAVITY (U) 1.010 1.002 - 1.035 10/05/2015 11:31 PM CDT [facility] U PH 6.0 5 - 8 10/05/2015 11:31 PM CDT [facility] PROTEIN (U) NEGATIVE NEGATIVE 10/05/2015 11:31 PM CDT [facility] URINE GLUCOSE NEGATIVE NEGATIVE MG/DL 10/05/2015 11:31 PM CDT [facility] KETONES MG/DL (U) NEGATIVE NEGATIVE 10/05/2015 11:31 PM CDT [facility] BILIRUBIN (U) NEGATIVE NEGATIVE 10/05/2015 11:31 PM CDT [facility] BLOOD (U) NEGATIVE NEGATIVE 10/05/2015 11:31 PM CDT [facility] NITRITES NEGATIVE NEGATIVE 10/05/2015 11:31 PM CDT [facility] UROBILINOGEN NORMAL 0 - 1 EU/DL 10/05/2015 11:31 PM CDT [facility] LEUKOCYTES (U) TRACE(A) NEGATIVE 10/05/2015 11:31 PM CDT [facility] RBC/HPF <1 /HPF 10/05/2015 11:31 PM CDT [facility] WBC/HPF <1 /HPF 10/05/2015 11:31 PM CDT [facility] BACTERIA (U) PRESENT /HPF 10/05/2015 11:31 PM CDT [facility] SQUAMOUS EPITHELIALS 3 10/05/2015 11:31 PM CDT [facility] URINE SPECIMEN / Unknown 10/05/2015 11:03 PM CDT 10/05/2015 11:14 PM CDT us Generic Conversion Md [facility] URINE ORDERABLES Final Result [facility] [place] [address], [id number] documented in this encounter Visit Diagnoses Not on filedocumented in this encounter
--- OUTSIDE RECORDS SUMMARY | 2024-03-20 12:09 | XMS_ITS | Encounter Summary ---
Author Organization [facility] Address [address] [place] [address]. [place] [address] [place] [address] Care Team Providers Care Giver Name Role Phone Unavailable Primary Care Provider Unavailabl e Encounter Details Date Type Department Care Team (Late st Contact Info) Description 10/05/2015 Orders [place] [address] , Generic Conversion, Social History Tobacco Use Types Packs/Day Years Used Date Smoking Tobacco: Never Assessed Comments Unknown Sex and Gender Information Value Date Recorded Sex Assigned at Not on file Legal Sex Female 9:15 PM RISK INTERN Gender Identity Not on file Sexual Orientation Not on file documented as of this encounter Plan of Treatment Not on file documented as of this encounter Procedures Procedure Name Priority Date/Time Associated Diagnosis Comments CBC W/DIFF AUTOMATED STAT 10/05/2015 10:30 PM CDT documented in this encounter Results * (ABNORMAL) CBC W/DIFF AUTOMATED (10/05/2015 10:30 PM CDT) WBC 3.4(L) 4.0 - 10.8 x10'3/uL 10/05/2015 10:53 PM CDT [facility] RBC 2.83(L) 4.10 - 5.40 x10'6/uL 10/05/2015 10:53 PM CDT [facility] HGB 9.6(L) 12.0 - 16.0 G/DL 10/05/2015 10:53 PM CDT [facility] HCT 27.4(L) 36.0 - 47.0 % 10/05/2015 10:53 PM CDT [facility] MCV 96.8 78.0 - 100.0 FL 10/05/2015 10:53 PM CDT [facility] MCH 33.9(H) 27.0 - 31.0 PG 10/05/2015 10:53 PM CDT [facility] MCHC 35.0 33.0 - 36.0 G/DL 10/05/2015 10:53 PM CDT [facility] RDW 12.6 11.5 - 14.5 % 10/05/2015 10:53 PM CDT [facility] PLT 52(L) 150 - 350 x10'3/uL 10/05/2015 11:16 PM CDT [facility] MPV 12.0(H) 7.4 - 10.4 FL 10/05/2015 11:16 PM CDT [facility] ABS. NEUTROPHILS TOTAL 2.18 1.60 - 8.30 x10'3/uL 10/05/2015 10:53 PM CDT [facility] ABS. LYMPHOCYTES 0.74(L) 0.80 - 4.70 x10'3/uL 10/05/2015 10:53 PM CDT [facility] ABS. MONOCYTES 0.27 0.00 - 1.50 x10'3/uL 10/05/2015 10:53 PM CDT [facility] ABS. EOSINOPHILS 0.16 0.00 - 0.40 x10'3/uL 10/05/2015 10:53 PM CDT [facility] ABS. BASOPHILS 0.01 0.00 - 0.20 x10'3/uL 10/05/2015 10:53 PM CDT [facility] ABS. IMMATURE GRANULOCYTES 0.01 0.00 - 0.03 x10'3/uL 10/05/2015 10:53 PM CDT [facility] ABS. NUCLEATED RBC'S 0.00 0.0 x10'3/uL 10/05/2015 10:53 PM CDT [facility] PLASMA SPECIMEN / Unknown 10/05/2015 10:30 PM CDT 10/05/2015 10:39 PM CDT us Generic Conversion Md [facility] Final R esult [facility] [address] [place] [address], [id number] documented in this encounter Visit Diagnoses Not on filedocumented in this encounter
--- OUTSIDE RECORDS SUMMARY | 2024-03-20 12:09 | XMS_ITS | Encounter Summary ---
Author Organization [facility] Address [address] [place] [address]. [place], [place] [address] [place] [address] Care Team Providers Care Fur Tailor Name Role Phone Ashley ZUNIGA MD, Hermes Perez Primary Care Provid er Encounter Details Date Type Department Care Team (Latest Contact Info) Description 08/14/2015 Abstract [facility] Group Lazara Case MD Social History Tobacco Use Types Packs/Day Years Used Date Smoking Tobacco: Never Assessed Comments Unknown Sex and Gender Information Value Date Recorded Sex Assigned at Not on file Legal Sex Female 9:15 PM LOOM FIXER HELPER Gender Identity Not on file Sexual Orientation Not on file documented as of this encounter Last Filed Vital Signs Vital Sign Reading Time Taken Comments Blood Pressure 118/80 08/14/2015 5:28 PM CDT Pulse 62 08/14/2015 5:28 PM CDT Temperature - - Respiratory Rate - - Oxygen Saturation - - Inhaled Oxygen Concentration - - Weight 68 kg (150 lb) 08/14/2015 5:28 PM CDT Height 157.5 cm (5' 2 ) 08/14/2015 5:28 PM CDT Body Mass Index 27.44 08/14/2015 5:28 PM CDT documented in this encounter Plan of Treatment Not on file documented as of this encounter Visit Diagnoses Not on filedocumented in this encounter Care Teams Fur Tailor Relationship Specialty Start Date End Date Hermes Ramirez III, MD [address] [facility] [address] [place] [address] PCP - General FAMILY PRACTICE 06/20/17 documented as of this encounter
--- OUTSIDE RECORDS SUMMARY | 2024-03-20 12:09 | XMS_ITS | Encounter Summary ---
Author Organization [facility] Address [address] [place] [address]. [place] [address] [place] [address] Care Team Providers Care Inventory Specialist Name Role Phone Unavailable Primary Care Provider Unavailabl e Encounter Details Date Type Department Care Team (Late st Contact Info) Description 12/29/2015 Emergency [facility] Emergency [address] [place] [address] Jay Lopez PA-C [address] [place] [address] Social History Tobacco Use Types Packs/Day Years Used Date Smoking Tobacco: Never Assessed Comments Unknown Sex and Gender Information Value Date Recorded Sex Assigned at Not on file Legal Sex Female 9:15 PM HISTOLOGIST Gender Identity Not on file Sexual Orientation Not on file documented as of this encounter Plan of Treatment Not on file documented as of this encounter Visit Diagnoses Diagnosis Migraine without status migrainosus, not intractable Migraine, unspecified, without mention of intractable migraine without mention of status migrainosus documented in this encounter
--- OUTSIDE RECORDS SUMMARY | 2024-03-20 12:09 | XMS_ITS | Encounter Summary ---
Author Organization [facility] Address [address] [place] [address]. [place], [place] [address] [place] [address] Care Team Providers Care Rn Staff Name Role Phone Ashley ZUNIGA MD, Hermes Perez Primary Care Provid er Encounter Details Date Type Department Care Team (Latest Contact Info) Description 07/09/2015 Abstract [facility] Social History Tobacco Use Types Packs/Day Years Used Date Smoking Tobacco: Never Assessed Comments Unknown Sex and Gender Information Value Date Recorded Sex Assigned at Not on file Legal Sex Female 9:15 PM SERVICE SPECIALIST Gender Identity Not on file Sexual Orientation Not on file documented as of this encounter Plan of Treatment Not on file documented as of this encounter Visit Diagnoses Not on filedocumented in this encounter Care Teams Rn Staff Relationship Specialty Start Date End Date Hermes Ramirez III, MD [address] [facility] [address] [place] [address] PCP - General FAMILY PRACTICE 06/20/17 documented as of this encounter
--- OUTSIDE RECORDS SUMMARY | 2024-03-20 12:09 | XMS_ITS | Encounter Summary ---
Author Organization [facility] Address [address] [place] [address]. [place] [address] [place] [address] Care Team Providers Care Trestle Mechanic Name Role Phone Unavailable Primary Care Provider Unavailabl e Encounter Details Date Type Department Care Team (Late st Contact Info) Description 12/30/2015 Emergency [facility] Emergency [address] [place] [address] Letha Mitchell FNP [address] [id number] Social History Tobacco Use Types Packs/Day Years Used Date Smoking Tobacco: Never Assessed Comments Unknown Sex and Gender Information Value Date Recorded Sex Assigned at Not on file Legal Sex Female 9:15 PM FAMILY PRACTICE PHYSICIAN ASSISTANT Gender Identity Not on file Sexual Orientation Not on file documented as of this encounter Plan of Treatment Not on file documented as of this encounter Visit Diagnoses Diagnosis Migraine without status migrainosus, not intractable Migraine, unspecified, without mention of intractable migraine without mention of status migrainosus documented in this encounter
--- OUTSIDE RECORDS SUMMARY | 2024-03-20 12:09 | XMS_ITS | Encounter Summary ---
Author Organization [facility] Address [address] [place] [address]. [place] [address] [place] [address] Care Team Providers Care Wall Mirror Department Supervisor Name Role Phone Unavailable Primary Care Provider Unavailabl e Encounter Details Date Type Department Care Team (Late st Contact Info) Description 10/05/2015 Orders [place] [address] , Generic Conversion, Social History Tobacco Use Types Packs/Day Years Used Date Smoking Tobacco: Never Assessed Comments Unknown Sex and Gender Information Value Date Recorded Sex Assigned at Not on file Legal Sex Female 9:15 PM FISHER SEAL Gender Identity Not on file Sexual Orientation Not on file documented as of this encounter Plan of Treatment Not on file documented as of this encounter Procedures Procedure Name Priority Date/Time Associated Diagnosis Comments HEPATIC FUNCTION PANEL STAT 10/05/2015 10:30 PM CDT documented in this encounter Results * (ABNORMAL) HEPATIC FUNCTION PANEL (10/05/2015 10:30 PM CDT) TOTAL PROTEIN S/P/B 5.7(L) 6.0 - 8.3 G/DL 10/05/2015 11:10 PM CDT [facility] ALBUMIN S/P/B 3.6 3.4 - 4.9 G/DL 10/05/2015 11:10 PM CDT [facility] BILIRUBIN TOTAL S/P/B 0.6 0.2 - 1.2 MG/DL 10/05/2015 11:10 PM CDT [facility] BILIRUBIN DIRECT S/P/B 0.3 0.0 - 0.5 MG/DL 10/05/2015 11:10 PM CDT [facility] ALKALINE PHOSPHATASE S/P/B 207(H) 37 - 98 U/L 10/05/2015 11:10 PM CDT [facility] AST 28 5 - 35 U/L 10/05/2015 11:10 PM CDT [facility] ALT 18 0 - 55 U/L 10/05/2015 11:10 PM CDT [facility] PLASMA SPECIMEN / Unknown 10/05/2015 10:30 PM CDT 10/05/2015 10:39 PM CDT us Generic Conversion Md [facility] Final R esult [facility] [address] [place] [address], [id number] documented in this encounter Visit Diagnoses Not on filedocumented in this encounter
--- OUTSIDE RECORDS SUMMARY | 2024-03-20 12:09 | XMS_ITS | Encounter Summary ---
Author Organization [facility] Address [address] [place] [address]. [place], [place] [address] [place] [address] Care Team Providers Care High Frequency Mill Operator Name Role Phone Ashley ZUNIGA MD, Hermes Perez Primary Care Provid er Encounter Details Date Type Department Care Team (Latest Contact Info) Description 11/08/[address] [facility] Medical [facility] Social History Tobacco Use Types Packs/Day Years Used Date Smoking Tobacco: Never Assessed Comments Unknown Sex and Gender Information Value Date Recorded Sex Assigned at Not on file Legal Sex Female 9:15 PM SAFETY SPEC Gender Identity Not on file Sexual Orientation Not on file documented as of this encounter Plan of Treatment Not on file documented as of this encounter Visit Diagnoses Not on filedocumented in this encounter Care Teams High Frequency Mill Operator Relationship Specialty Start Date End Date Hermes Ramirez III, MD [address] [facility] [address] [place] [address] PCP - General FAMILY PRACTICE 06/20/17 documented as of this encounter
--- OUTSIDE RECORDS SUMMARY | 2024-03-20 12:09 | XMS_ITS | Encounter Summary ---
Author Organization [facility] Address [address] [place] [address]. [place], [place] [address] [place] [address] Care Team Providers Care Tier In Name Role Phone Unavailable Primary Care Provider Unavailabl e Encounter Details Date Type Department Care Team (Late st Contact Info) Description 10/05/2015 Emergency [facility] Emergency [address] [place] [address] Social History Tobacco Use Types Packs/Day Years Used Date Smoking Tobacco: Never Assessed Comments Unknown Sex and Gender Information Value Date Recorded Sex Assigned at Not on file Legal Sex Female 9:15 PM CONTENT PRODUCER Gender Identity Not on file Sexual Orientation Not on file documented as of this encounter Plan of Treatment Not on file documented as of this encounter Visit Diagnoses Diagnosis Abdominal pain Abdominal pain, unspecified site documented in this encounter
--- OUTSIDE RECORDS SUMMARY | 2024-03-20 12:09 | XMS_ITS | Encounter Summary ---
Author Organization [facility] Address [address] [place] [address]. 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 MACHINE Gender Identity Not on file Sexual Orientation Not on file documented as of this encounter Plan of Treatment Not on file documented as of this encounter Procedures Procedure Name Priority Date/Time Associated Diagnosis Comments LIPASE STAT 10/05/2015 10:30 PM CDT documented in this encounter Results * LIPASE (10/05/2015 10:30 PM CDT) LIPASE 14 8 - 78 UNITS/L 10/05/2015 11:10 PM CDT [facility] SERUM OR PLASMA SPECIMEN / Unknown 10/05/2015 10:30 PM CDT 10/05/2015 10:39 PM CDT us Generic Conversion Md [facility] Final R esult [facility] [place] [address], [id number] documented in this encounter Visit Diagnoses Not on filedocumented in this encounter
--- OUTSIDE RECORDS SUMMARY | 2024-03-20 12:09 | XMS_ITS | Encounter Summary ---
Author Organization [facility] Address [address] [place] [address]. [place], [place] [address] [place] [address] Care Team Providers Care Party Plan Sales Consultant Name Role Phone Ashley ZUNIGA MD, Hermes Perez Primary Care Provid er Encounter Details Date Type Department Care Team (Latest Contact Info) Description 10/07/2015 Abstract [facility] Social History Tobacco Use Types Packs/Day Years Used Date Smoking Tobacco: Never Assessed Comments Unknown Sex and Gender Information Value Date Recorded Sex Assigned at Not on file Legal Sex Female 9:15 PM HONE OPERATOR Gender Identity Not on file Sexual Orientation Not on file documented as of this encounter Plan of Treatment Not on file documented as of this encounter Visit Diagnoses Not on filedocumented in this encounter Care Teams Party Plan Sales Consultant Relationship Specialty Start Date End Date Hermes Ramirez III, MD [address] [facility] [address] [place] [address] PCP - General FAMILY PRACTICE 06/20/17 documented as of this encounter
--- OUTSIDE RECORDS SUMMARY | 2024-03-20 12:09 | XMS_ITS | Encounter Summary ---
Author Organization [facility] Address [address] [place] [address]. [place] [address] [place] [address] Care Team Providers Care Filler Shredding Machine Loader Name Role Phone Ashley ZUNIGA MD, Hermes Perez Primary Care Provid er Encounter Details Date Type Department Care Team (Late st Contact Info) Description 10/11/2015 Abstract [facility] [address] [place] [address] Manjinder Bradley MD [address] [address] Social History Tobacco Use Types Packs/Day Years Used Date Smoking Tobacco: Never Assessed Comments Unknown Sex and Gender Information Value Date Recorded Sex Assigned at Not on file Legal Sex Female 9:15 PM THERAPEUTIC CASE MANAGER Gender Identity Not on file Sexual Orientation Not on file documented as of this encounter Plan of Treatment Not on file documented as of this encounter Visit Diagnoses Diagnosis Migraine without status migrainosus, not intractable Migraine, unspecified, without mention of intractable migraine without mention of status migrainosus documented in this encounter Care Teams Filler Shredding Machine Loader Relationship Specialty Start Date End Date Hermes Ramirez III, MD [address] [facility] [address] [place] [address] PCP - General FAMILY PRACTICE 06/20/17 documented as of this encounter
--- OUTSIDE RECORDS SUMMARY | 2024-03-20 12:09 | XMS_ITS | Encounter Summary ---
Author Organization [facility] Address [address] [place] [address]. [place] [address] [place] [address] Care Team Providers Care Patent Counsel Name Role Phone Unavailable Primary Care Provider Unavailabl e Encounter Details Date Type Department Care Team (Late st Contact Info) Description 12/20/2015 Emergency [facility] Emergency [address] [place] [address] Neil Altamirano MD [address] [place] [address] Social History Tobacco Use Types Packs/Day Years Used Date Smoking Tobacco: Never Assessed Comments Unknown Sex and Gender Information Value Date Recorded Sex Assigned at Not on file Legal Sex Female 9:15 PM STRIPE MARKER Gender Identity Not on file Sexual Orientation Not on file documented as of this encounter Plan of Treatment Not on file documented as of this encounter Visit Diagnoses Diagnosis Migraine without status migrainosus, not intractable Migraine, unspecified, without mention of intractable migraine without mention of status migrainosus documented in this encounter
--- OUTSIDE RECORDS SUMMARY | 2024-03-20 12:09 | XMS_ITS | Encounter Summary ---
Author Organization [facility] Address [address] [place] [address]. [place] [address] [place] [address] Care Team Providers Care Driver Retraining Instructor Name Role Phone Unavailable Primary Care Provider Unavailabl e Encounter Details Date Type Department Care Team (Late st Contact Info) Description 10/05/2015 Orders Only KAYE [place] [address] , Generic Conversion, Social History Tobacco Use Types Packs/Day Years Used Date Smoking Tobacco: Never Assessed Comments Unknown Sex and Gender Information Value Date Recorded Sex Assigned at Not on file Legal Sex Female 9:15 PM CABLE ENGINEER Gender Identity Not on file Sexual Orientation Not on file documented as of this encounter Plan of Treatment Not on file documented as of this encounter Procedures Procedure Name Priority Date/Time Associated Diagnosis Comments BASIC METABOLIC PANEL STAT 10/05/2015 10:30 PM CDT documented in this encounter Results * (ABNORMAL) BASIC METABOLIC PANEL (10/05/2015 10:30 PM CDT) SODIUM S/P/B 139 135 - 147 MMOL/L 10/05/2015 11:09 PM CDT [facility] POTASSIUM S/P/B 4.9 3.5 - 5.0 MMOL/L 10/05/2015 11:09 PM CDT [facility] Comment:SLIGHT HEMOLYSIS, RE SULT MAY BE AFFECTED. CHLORIDE S/P/B 118(H) 98 - 107 MMOL/L 10/05/2015 11:09 PM CDT [facility] CALCIUM S/P/B 8.5 8.4 - 10.2 MG/DL 10/05/2015 11:09 PM CDT [facility] CO2 14.0(L) 22 - 29 MMOL/L 10/05/2015 11:09 PM CDT [facility] GLUCOSE 85 70 - 109 MG/DL 10/05/2015 11:09 PM CDT [facility] BUN 34(H) 7 - 19 MG/DL 10/05/2015 11:09 PM CDT [facility] CREATININE S/P/B 2.07(H) 0.60 - 1.10 MG/DL 10/05/2015 11:09 PM CDT [facility] OSMOLALITY (CALC) 284 10/05/2015 11:09 PM CDT [facility] ANION GAP 7 MMOL/L 10/05/2015 11:09 PM CDT [facility] PLASMA SPECIMEN / Unknown 10/05/2015 10:30 PM CDT 10/05/2015 10:39 PM CDT us Generic Conversion Md [facility] Final R esult [facility] [place] [address], [place] [phone] [id number] documented in this encounter Visit Diagnoses Not on filedocumented in this encounter
--- OUTSIDE RECORDS SUMMARY | 2024-03-20 12:10 | XMS_ITS | Encounter Summary ---
Author Organization [facility] Address [address] [place] [address]. [place], [place] [address] [place] [address] Care Team Providers Care Master Coastal Waters Name Role Phone Ashley ZUNIGA MD, Hermes Perez Primary Care [facility] er Encounter Details Date Type Department Care Team (Latest Contact Info) Description 04/15/2015 Abstract [facility] , Lazara Lange MD Social History Tobacco Use Types Packs/Day Years Used Date Smoking Tobacco: Never Assessed Comments Unknown Sex and Gender Information Value Date Recorded Sex Assigned at Not on file Legal Sex Female 9:15 PM CLEANING CREW MEMBER Gender Identity Not on file Sexual Orientation Not on file documented as of this encounter Last Filed Vital Signs Vital Sign Reading Time Taken Comments Blood Pressure 130/80 04/15/2015 3:37 PM CLEANING CREW MEMBER Pulse 88 04/15/2015 3:37 PM CLEANING CREW MEMBER Temperature - - Respiratory Rate - - Oxygen Saturation - - Inhaled Oxygen Concentration - - Weight 74.4 kg (164 lb) 04/15/2015 3:37 PM CLEANING CREW MEMBER Height 157.5 cm (5' 2 ) 04/15/2015 2:26 PM CLEANING CREW MEMBER Body Mass Index 30 04/15/2015 2:26 PM CLEANING CREW MEMBER documented in this encounter Plan of Treatment Not on file documented as of this encounter Procedures Procedure Name Priority Date/Time Associated Diagnosis Comments PATHOLOGY Routine 04/15/2015 5:16 PM CLEANING CREW MEMBER documented in this encounter Results * Pathology (04/15/2015 5:16 PM CLEANING CREW MEMBER) PATHOLOGY [facility] T O EPIC CONVERSION Comment: Patient Name: RENETTA MISHA A. Specimen #: [id number] ?? Procedure Date: 04/15/2015 /Age: 7 1980 (Age: 34) Gender: ??F Accessioned: 04/16/2015 Address: [address] ??[address] Reported: 04/17/2015 ?? Encounter: [id number] Location: [facility] ?? Physician(s): MARIA ISABEL JENNINGS MD ?SURGICAL PATHOLOGY REPORT Diagnosis: 1. ??CERVIX, BIOPSY: ? - HIGH-GRADE SQUAMOUS INTRAEPITHELIAL LESION (IFEANYI 3). ? - P16 IS POSITIVE, SUPPORTING THE DIAGNOSIS (CONTROLS APPROPRIATE). 2. ??ENDOCERVIX, CURETTAGE: ? - HIGH-GRADE SQUAMOUS INTRAEPITHELIAL LESION (IFEANYI 3). ? - P16 IS POSITIVE, SUPPORTING THE DIAGNOSIS (CONTROLS APPROPRIATE). 3. ??VULVA, BIOPSY: ? - HIGH-GRADE SQUAMOUS INTRAEPITHELIAL LESION (ALBARO 3) WITH CHRONIC INFLAMMATION. CARIN ADLER MD ? Report Electronically Signed ? Specimen(s) Received: 1: ??ECTO CERVIX BX 2: ??ECC BX 3: ??VULVA BX Clinical Diagnosis & History: Abnormal pap w/LGSIL, history ALBARO III & IFEANYI III. Gross Description: 1. ??The specimen is labeled ectocervix bx. ??Received in formalin are multiple pieces of white-valadez tissue aggregating 0.7 x 0.4 x 0.1 cm. ??The entire specimen is submitted in one cassette. 2. ??The specimen is labeled ECC. ??Received in formalin is a 0.9 x 0.7 x 0.1 cm aggregate of mucus and minute white-valadez tissue. ??All in one cassette. 3. ??The specimen is labeled vulvar bx. ??Received in formalin is a 0.4 x 0.3 x 0.1 cm piece of white-valadez granular skin. ??The specimen is bisected. All in one cassette. ?? /mn MAYITO Hercules (ASCP) ?? Microscopic Examination: (EXAMINED) 04/15/2015 5:16 PM CLEANING CREW MEMBER Narrative [facility] TO EPIC CONVERSION - 04/15/2015 5:16 PM CLEANING CREW MEMBER [Task Forwarded to [facility]] sched. appt. with Vishnu us Maria Isabel Jennings MD PATHOLOGY/CYTOLOGY ORDERAB LES Final Result [facility] EP[facility] CONVERSION documented in this encounter Visit Diagnoses Not on filedocumented in this encounter Care Teams Master Coastal Waters Relationship Specialty Start Date End Date Hermes Ramirez III, MD [address] [address] PCP - General FAMILY PRACTICE 06/20/17 documented as of this encounter
--- OUTSIDE RECORDS SUMMARY | 2024-03-20 12:10 | XMS_ITS | Encounter Summary ---
Author Organization [facility] Address [address] [place] [address]. [place] [address] [place] [address] Care Team Providers Care Warp Worker Name Role Phone Unavailable Primary Care Provider Unavailabl e Encounter Details Date Type Department Care Team (Late st Contact Info) Description 07/08/2015 Emergency [facility] Emergency [address] [place] [address] Victor Manuel Jaime PA [address] [facility] [address] [place] [address] Social History Tobacco Use Types Packs/Day Years Used Date Smoking Tobacco: Never Assessed Comments Unknown Sex and Gender Information Value Date Recorded Sex Assigned at Not on file Legal Sex Female 9:15 PM CLOTH PRINTER Gender Identity Not on file Sexual Orientation Not on file documented as of this encounter Plan of Treatment Not on file documented as of this encounter Visit Diagnoses Diagnosis Migraine without status migrainosus, not intractable Migraine, unspecified, without mention of intractable migraine without mention of status migrainosus documented in this encounter
--- OUTSIDE RECORDS SUMMARY | 2024-03-20 12:10 | XMS_ITS | Encounter Summary ---
Author Organization [facility] Address [address] [place] [address]. [place] [address] [place] [address] Care Team Providers Care Welcome Wagon Hostess Name Role Phone Unavailable Primary Care Provider Unavailabl e Encounter Details Date Type Department Care Team (Late st Contact Info) Description 05/13/2015 Abstract [facility] [address] [place] [address] Rachid Le MD [address] [facility] [address] [place] [address] Social History Tobacco Use Types Packs/Day Years Used Date Smoking Tobacco: Never Assessed Comments Unknown Sex and Gender Information Value Date Recorded Sex Assigned at Not on file Legal Sex Female 9:15 PM GEOPHYSICAL PROSPECTING PERMIT AGENT Gender Identity Not on file Sexual Orientation Not on file documented as of this encounter Plan of Treatment Not on file documented as of this encounter Visit Diagnoses Diagnosis Dysplasia of cervix uteri Dysplasia of cervix, unspecified documented in this encounter
--- OUTSIDE RECORDS SUMMARY | 2024-03-20 12:10 | XMS_ITS | Encounter Summary ---
Author Organization [facility] Address [address] [place] [address]. [place], [place] [address] [place] [address] Care Team Providers Care Assistant Program Manager Name Role Phone Ashley ZUNIGA MD, Hermes Perez Primary Care Provid er Encounter Details Date Type Department Care Team (Latest Contact Info) Description 04/03/2015 Abstract [facility] Lazara Case MD Social History Tobacco Use Types Packs/Day Years Used Date Smoking Tobacco: Never Assessed Comments Unknown Sex and Gender Information Value Date Recorded Sex Assigned at Not on file Legal Sex Female 9:15 PM SOCIAL SERVICES ANALYST Gender Identity Not on file Sexual Orientation Not on file documented as of this encounter Last Filed Vital Signs Vital Sign Reading Time Taken Comments Blood Pressure 128/80 04/03/2015 3:35 PM SOCIAL SERVICES ANALYST Pulse 80 04/03/2015 3:35 PM SOCIAL SERVICES ANALYST Temperature - - Respiratory Rate - - Oxygen Saturation - - Inhaled Oxygen Concentration - - Weight 74.4 kg (164 lb) 04/03/2015 3:35 PM SOCIAL SERVICES ANALYST Height 157.5 cm (5' 2 ) 04/03/2015 3:35 PM SOCIAL SERVICES ANALYST Body Mass Index 30 04/03/2015 3:35 PM SOCIAL SERVICES ANALYST documented in this encounter Plan of Treatment Not on file documented as of this encounter Procedures Procedure Name Priority Date/Time Associated Diagnosis Comments THINPREP IMAGING SYSTEM PAP Routine 04/03/2015 10:30 AM SOCIAL SERVICES ANALYST documented in this encounter Results * (ABNORMAL) THINPREP IMAGING SYSTEM PAP (04/03/2015 10:30 AM SOCIAL SERVICES ANALYST) THIN PREP PAP (A) [facility] TO EPIC CONVERSION Comment: Patient Name: MISHA JACKSON Specimen #: [id number] ?? Procedure Date: 04/03/2015 /Age: 7 1980 (Age: 34) Gender: ??F Accessioned: 04/07/2015 Address: [address] [place], [place] ??[address] Reported: 04/08/2015 ?? Encounter: [id number] Location: [facility] ?? Physician(s): MARIA ISABEL JENNINGS MD ?? : ? CYTOPATHOLOGY - GYNECOLOGIC REPORT Diagnosis: TEST NAME: ??THINPREP PAP WITH TISSUE INSERTER, REFLEX HPV-ASCUS ONLY INTERPRETATION/RESULT: EPITHELIAL CELL ABNORMALITY: LOW-GRADE SQUAMOUS INTRAEPITHELIAL LESION. ?? STATEMENT OF ADEQUACY: SATISFACTORY FOR EVALUATION; ENDOCERVICAL/TRANSFORMATION ZONE COMPONENT PRESENT. ?? CHONG ADLER MD ssd/04/08/2015 Report Electronically Signed ? Specimen: THINPREP PAP WITH TISSUE INSERTER, REFLEX HPV-ASCUS ONLY Clinical Diagnosis and History Date of Last Menstrual Period: ? . Specimen Source: Cervical ? PAP SMEARS ARE SCREENING TESTS SUBJECT TO BOTH FALSE NEGATIVE AND FALSE POSITIVE RESULTS EVIDENCED BY DATA PUBLISHED IN THE MEDICAL LITERATURE. YOUR PATIENT'S RESULT SHOULD BE INTERPRETED IN THIS CONTEXT, TOGETHER WITH THE PATIENT'S HISTORY AND CLINICAL FINDINGS. 04/03/2015 10:3 0 AM SOCIAL SERVICES ANALYST Narrative [facility] TO EPIC CONVERSION - 04/03/2015 10:30 AM SOCIAL SERVICES ANALYST [Task Forwarded to [facility]] notify and sched. colpo with [place] us Maria Isabel Jennings MD PATHOLOGY/CYTOLOGY ORDERAB LES Final Result [facility] TO EPIC CONVERSION documented in this encounter Visit Diagnoses Not on filedocumented in this encounter Care Teams Assistant Program Manager Relationship Specialty Start Date End Date Hermes Ramirez III, MD [address] [facility] [address] [place] [address] PCP - General FAMILY PRACTICE 06/20/17 documented as of this encounter
--- OUTSIDE RECORDS SUMMARY | 2024-03-20 12:10 | XMS_ITS | Encounter Summary ---
Author Organization [facility] Address [address] [place] [address]. [place] [address] [place] [address] Care Team Providers Care Care Program Resident Name Role Phone Unavailable Primary Care Provider Unavailabl e Encounter Details Date Type Department Care Team (Late st Contact Info) Description 10/02/2013 Abstract [facility] [address] [place] [address] Rachid Le MD [address] [facility] [address] [place] [address] Social History Tobacco Use Types Packs/Day Years Used Date Smoking Tobacco: Never Assessed Comments Unknown Sex and Gender Information Value Date Recorded Sex Assigned at Not on file Legal Sex Female 9:15 PM ASH COLLECTOR Gender Identity Not on file Sexual Orientation Not on file documented as of this encounter Plan of Treatment Not on file documented as of this encounter Visit Diagnoses Diagnosis Moderate dysplasia of cervix (IFEANYI II) Moderate dysplasia of cervix documented in this encounter
--- OUTSIDE RECORDS SUMMARY | 2024-03-20 12:10 | XMS_ITS | Encounter Summary ---
Author Organization [facility] Address [address] [place] [address]. [place], [place] [address] [place] [address] Care Team Providers Care Vocational Coordinator Name Role Phone Ashley ZUNIGA MD, Hermes Perez Primary Care Provid er Encounter Details Date Type Department Care Team (Latest Contact Info) Description 05/13/2015 Abstract [facility] Social History Tobacco Use Types Packs/Day Years Used Date Smoking Tobacco: Never Assessed Comments Unknown Sex and Gender Information Value Date Recorded Sex Assigned at Not on file Legal Sex Female 9:15 PM CONSTRUCTION CONTRACTOR Gender Identity Not on file Sexual Orientation Not on file documented as of this encounter Plan of Treatment Not on file documented as of this encounter Visit Diagnoses Not on filedocumented in this encounter Care Teams Vocational Coordinator Relationship Specialty Start Date End Date Hermes Ramirez III, MD [address] [facility] [address] [place] [address] PCP - General FAMILY PRACTICE 06/20/17 documented as of this encounter
--- OUTSIDE RECORDS SUMMARY | 2024-03-20 12:10 | XMS_ITS | Encounter Summary ---
Author Organization [facility] Address [address] [place] [address]. [place], [place] [address] [place] [address] Care Team Providers Care Franchise Sales Representative Name Role Phone Unavailable Primary Care Provider Unavailabl e Encounter Details Date Type Department Care Team (Late st Contact Info) Description 06/21/[address] [facility] Emergency [address] [place] [address] Bailee Merchant MD [address] [place] [address] Social History Tobacco Use Types Packs/Day Years Used Date Smoking Tobacco: Never Assessed Comments Unknown Sex and Gender Information Value Date Recorded Sex Assigned at Not on file Legal Sex Female 9:15 PM REFRIGERATOR ROOM CLERK Gender Identity Not on file Sexual Orientation Not on file documented as of this encounter Plan of Treatment Not on file documented as of this encounter Visit Diagnoses Diagnosis Migraine without status migrainosus, not intractable Migraine, unspecified, without mention of intractable migraine without mention of status migrainosus documented in this encounter
--- OUTSIDE RECORDS SUMMARY | 2024-03-20 12:10 | XMS_ITS | Encounter Summary ---
Author Organization [facility] Address [address] [place] [address]. [place], [place] [address] [place] [address] Care Team Providers Care Emissions Repair Technician Name Role Phone Ashley ZUNIGA MD, Hermes Perez Primary Care Provid er Encounter Details Date Type Department Care Team (Latest Contact Info) Description 01/29/2015 Abstract [facility] Social History Tobacco Use Types Packs/Day Years Used Date Smoking Tobacco: Never Assessed Comments Unknown Sex and Gender Information Value Date Recorded Sex Assigned at Not on file Legal Sex Female 9:15 PM NEWSPAPER DISTRIBUTOR SUPERVISOR Gender Identity Not on file Sexual Orientation Not on file documented as of this encounter Plan of Treatment Not on file documented as of this encounter Visit Diagnoses Not on filedocumented in this encounter Care Teams Emissions Repair Technician Relationship Specialty Start Date End Date Hermes Ramirez III, MD [address] [facility] [address] [place] [address] PCP - General FAMILY PRACTICE 06/20/17 documented as of this encounter
--- OUTSIDE RECORDS SUMMARY | 2024-03-20 12:10 | XMS_ITS | Encounter Summary ---
Author Organization [facility] Address [address] [place] [address]. [place], [place] [address] [place] [address] Care Team Providers Care Cardiac Exercise Specialist Name Role Phone Unavailable Primary Care Provider Unavailabl e Encounter Details Date Type Department Care Team (Late st Contact Info) Description 01/28/2015 Emergency [facility] Emergency [address] [place] [address] Say Posada MD [address] [place] [id number] Social History Tobacco Use Types Packs/Day Years Used Date Smoking Tobacco: Never Assessed Comments Unknown Sex and Gender Information Value Date Recorded Sex Assigned at Not on file Legal Sex Female 9:15 PM ONCOLOGY ADMIN Gender Identity Not on file Sexual Orientation Not on file documented as of this encounter Plan of Treatment Not on file documented as of this encounter Visit Diagnoses Diagnosis Sprain of ligament of left ankle Sprain of ankle, unspecified site documented in this encounter
--- OUTSIDE RECORDS SUMMARY | 2024-03-20 12:10 | XMS_ITS | Encounter Summary ---
Author Organization [facility] Address [address] [place] [address]. [place], [place] [address] [place] [address] Care Team Providers Care Color Matcher Name Role Phone Ashley ZUNIGA MD, Hermes Perez Primary Care Provid er Encounter Details Date Type Department Care Team (Latest Contact Info) Description 06/21/2015 Abstract [facility] Social History Tobacco Use Types Packs/Day Years Used Date Smoking Tobacco: Never Assessed Comments Unknown Sex and Gender Information Value Date Recorded Sex Assigned at Not on file Legal Sex Female 9:15 PM CAR TOP BOLTER Gender Identity Not on file Sexual Orientation Not on file documented as of this encounter Plan of Treatment Not on file documented as of this encounter Visit Diagnoses Not on filedocumented in this encounter Care Teams Color Matcher Relationship Specialty Start Date End Date Hermes Ramirez III, MD [address] [facility] [address] [place] [address] PCP - General FAMILY PRACTICE 06/20/17 documented as of this encounter
--- OUTSIDE RECORDS SUMMARY | 2024-03-20 12:10 | XMS_ITS | Encounter Summary ---
Author Organization [facility] Address [address] [place] [address]. [place], [place] [address] [address] Care Team Providers Care Plant Taxonomist Name Role Phone Ashley ZUNIGA MD, Hermes Perez Primary Care Provid er Encounter Details Date Type Department Care Team (Latest Contact Info) Description 05/15/2015 Abstract [facility] Medical Group Social History Tobacco Use Types Packs/Day Years Used Date Smoking Tobacco: Never Assessed Comments Unknown Sex and Gender Information Value Date Recorded Sex Assigned at Not on file Legal Sex Female 9:15 PM STUDIO MODEL Gender Identity Not on file Sexual Orientation Not on file documented as of this encounter Plan of Treatment Not on file documented as of this encounter Visit Diagnoses Not on filedocumented in this encounter Care Teams Plant Taxonomist Relationship Specialty Start Date End Date Hermes Ramirez III, MD [address] [facility] [address] [place] [address] PCP - General FAMILY PRACTICE 06/20/17 documented as of this encounter
--- OUTSIDE RECORDS SUMMARY | 2024-03-20 12:10 | XMS_ITS | Encounter Summary ---
Author Organization [facility] Address [address] [place] [address]. [place], [place] [address] [place] [address] Care Team Providers Care Workgroup Leader Name Role Phone Unavailable Primary Care Provider Unavailabl e Encounter Details Date Type Department Care Team (Late st Contact Info) Description 08/18/2014 Emergency [facility] Emergency [address] [place] [address] Danish Menjivar MD [address] [place] [address] Social History Tobacco Use Types Packs/Day Years Used Date Smoking Tobacco: Never Assessed Comments Unknown Sex and Gender Information Value Date Recorded Sex Assigned at Not on file Legal Sex Female 9:15 PM NETWORK PROGRAMMER Gender Identity Not on file Sexual Orientation Not on file documented as of this encounter Plan of Treatment Not on file documented as of this encounter Visit Diagnoses Diagnosis Disorder of kidney and ureter Unspecified disorder of kidney and ureter documented in this encounter
--- OUTSIDE RECORDS SUMMARY | 2024-03-20 12:10 | XMS_ITS | Encounter Summary ---
Author Organization [facility] Address [address] [place] [address]. [place], [place] [address] [place] [address] Care Team Providers Care Aluminum Molding Machine Operator Name Role Phone Ashley ZUNIGA MD, Hermes Perez Primary Care Provid er Encounter Details Date Type Department Care Team (Latest Contact Info) Description 04/22/2015 Abstract [facility] Medical Group Lazara Case MD Social History Tobacco Use Types Packs/Day Years Used Date Smoking Tobacco: Never Assessed Comments Unknown Sex and Gender Information Value Date Recorded Sex Assigned at Not on file Legal Sex Female 9:15 PM SSIS DEVELOPER Gender Identity Not on file Sexual Orientation Not on file documented as of this encounter Last Filed Vital Signs Vital Sign Reading Time Taken Comments Blood Pressure 112/70 04/22/2015 11:22 AM SSIS DEVELOPER Pulse 88 04/22/2015 11:22 AM SSIS DEVELOPER Temperature - - Respiratory Rate - - Oxygen Saturation - - Inhaled Oxygen Concentration - - Weight 73.5 kg (162 lb) 04/22/2015 11:22 AM SSIS DEVELOPER Height 157.5 cm (5' 2 ) 04/22/2015 11:22 AM SSIS DEVELOPER Body Mass Index 29.63 04/22/2015 11:22 AM SSIS DEVELOPER documented in this encounter Plan of Treatment Not on file documented as of this encounter Visit Diagnoses Not on filedocumented in this encounter Care Teams Aluminum Molding Machine Operator Relationship Specialty Start Date End Date Hermes Ramirez III, MD [address] [facility] [address] [place] [address] PCP - General FAMILY PRACTICE 06/20/17 documented as of this encounter
--- OUTSIDE RECORDS SUMMARY | 2024-03-20 12:10 | XMS_ITS | Encounter Summary ---
Author Organization [facility] Address [address] [place] [address]. [place], [place] [address] [place] [address] Care Team Providers Care Business Manager College Or University Name Role Phone Ashley ZUNIGA MD, Hermes Perez Primary Care Provid er Encounter Details Date Type Department Care Team (Latest Contact Info) Description 06/23/2015 Abstract [facility] Medical Group Social History Tobacco Use Types Packs/Day Years Used Date Smoking Tobacco: Never Assessed Comments Unknown Sex and Gender Information Value Date Recorded Sex Assigned at Not on file Legal Sex Female 9:15 PM SUPPLY CHAIN SYSTEMS MANAGER Gender Identity Not on file Sexual Orientation Not on file documented as of this encounter Plan of Treatment Not on file documented as of this encounter Visit Diagnoses Not on filedocumented in this encounter Care Teams Business Manager College Or University Relationship Specialty Start Date End Date Hermes Ramirez III, MD [address] [facility] [address] [place] [address] PCP - General FAMILY PRACTICE 06/20/17 documented as of this encounter
--- OUTSIDE RECORDS SUMMARY | 2024-03-20 12:11 | XMS_ITS | Encounter Summary ---
Author Organization [facility] Address [facility] [address] [place] [address] Care Team Providers Care Watch Repair Technician Name Role Phone Ashley ZUNIGA MD, Hermes Perez Primary Care Provid er Encounter Details Date Type Department Care Team (Late st Contact Info) Description 11/19/2010 Abstract [facility] Medical Group Priority Care - Doreen Lopez [address] [place] [address] Terra Rodarte MD [address] [place] [address] Social History Tobacco Use Types Packs/Day Years Used Date Smoking Tobacco: Never Assessed Comments Unknown Sex and Gender Information Value Date Recorded Sex Assigned at Not on file Legal Sex Female 9:15 PM LEGAL SPECIALIST Gender Identity Not on file Sexual Orientation Not on file documented as of this encounter Progress Notes * Terra Hook MD - 11/19/2010 6:10 PM CDT Chief Complaint Tonsil ulcer x 2 days. History of Present Illness Sore Throat: Elsa Browne presents with complaints of sore throat. Associated symptoms include no postnasal drainage and no fever. Active Problems 1. Abdominal Pain 789.00 2. Anxiety 300.00 3. Aphthous Ulcer 528.2 4. Oral Thrush 112.0 Current Meds 1. Prograf 1 MG Oral Capsule; TAKE 4 MG Every twelve hours; Therapy: (Recorded:02Sep2010) to Allergies 1. Aspirin TABS 2. Erythromycin Derivatives Vitals 19Nov2010 06:17PM Temperature 99.2 F Heart Rate 80 Respiration 16 Systolic 106 Diastolic 74 BMI Calculated 22.27 BSA Calculated 1.54 Weight 121 lb Physical Exam Constitutional General appearance: Normal. Ears, Nose, Mouth, and Throat Otoscopic examination: Normal. Oropharynx: Abnormal. The oral mucosa was normal. Examination of the palate showed no abnormalities. The tongue was normal. There was erythema of the right tonsil. Rt tonsil with erythematous spot, no swelling, no exudate. Pulmonary Respiratory effort: Normal. Auscultation of lungs: Normal. Cardiovascular Auscultation of heart: Normal. Musculoskeletal Gait and station: Normal. Psychiatric Orientation to person, place, and time: Normal. Mood and affect: Normal. Results/Data Results [Data Includes: Last 1 Week] Rapid Strep Rapid Strep: NEG Reference Range NEG-NEG Assessment 1. Acute Pharyngitis 462 recommend zantac OTC-- may help prevent recurrent ulcers. Plan Acute Pharyngitis (462) ?? Rapid Strep Done: 19Nov2010 06:35PM Signatures Electronically signed by : Terra Rider M.D.; Nov 19 2010 6:57PM (Author) L SPECIALIST documented in this encounter Plan of Treatment Not on file documented as of this encounter Procedures Procedure Name Priority Date/Time Associated Diagnosis Comments CULTURE STREP SCREEN Routine 11/19/2010 6:41 PM CDT STREP A RAPID Routine 11/19/2010 6:35 PM CDT documented in this encounter Results * CULTURE STREP SCREEN (11/19/2010 6:41 PM CDT) STREP BACK UP CULTURE RESULT NEG [facility] TO EPIC CONVERSION 11/19/2010 6:41 PM CDT 11/19/2010 6:41 PM CDT Narrative [facility] TO EPIC CONVERSION - 11/20/2010 9:20 AM CDT Result Communication: No patient communication needed at this time Terra Hook MD MICROBIOLOGY - GENERAL [place] Final Result [facility] TO EPIC CONVERSION * STREP A RAPID (11/19/2010 6:35 PM CDT) RAPID STREP TEST NEG NEG-NEG [facility] TO EPIC CONVERSION 11/19/2010 6:35 PM CDT 11/19/2010 6:35 PM CDT Narrative [facility] TO EPIC CONVERSION - 11/19/2010 6:42 PM CDT Result Communication: No patient communication needed at this time us Terramick Hook MD MICROBIOLOGY - GENERAL [place] Final Result [facility] TO EPIC CONVERSION documented in this encounter Visit Diagnoses Not on filedocumented in this encounter Care Teams Watch Repair Technician Relationship Specialty Start Date End Date Hermes Ramirez III, MD [address] [facility] [address] [place] [address] PCP - General FAMILY PRACTICE 06/20/17 documented as of this encounter
--- OUTSIDE RECORDS SUMMARY | 2024-03-20 12:11 | XMS_ITS | Encounter Summary ---
Author Organization [facility] Address [address] [place] [address]. [place] [address] [place] [address] Care Team Providers Care Drilling Field Specialist Name Role Phone Ashley ZUNIGA MD, Hermes Perez Primary Care Provid er Encounter Details Date Type Department Care Team (Late st Contact Info) Description 05/18/2005 Abstract [facility] [address] [place] [address] , Lazara Lange MD Social History Tobacco Use Types Packs/Day Years Used Date Smoking Tobacco: Never Assessed Comments Unknown Sex and Gender Information Value Date Recorded Sex Assigned at Not on file Legal Sex Female 9:15 PM MANAGEMENT LIAISON Gender Identity Not on file Sexual [...] Rule Out 03/30/2020 03/30/2020 03/30/2020 9:29 PM MANAGEMENT LIAISON COVID-19 Rule Out 03/30/2020 03/30/2020 03/31/2020 12:28 PM MANAGEMENT LIAISON documented as of this encounter Care Teams Drilling Field Specialist Relationship Specialty Start Date End Date Hermes Ramirez III, MD [address] [facility] [address] [place] [address] PCP - General FAMILY PRACTICE 06/20/17 documented as of this encounter
--- OUTSIDE RECORDS SUMMARY | 2024-03-20 12:11 | XMS_ITS | Encounter Summary ---
Author Organization [facility] Address [address] [place] [address]. [place], [place] [address] [place] [address] Care Team Providers Care Director It Name Role Phone Ashley ZUNIGA MD, Hermes Perez Primary Care Provid er Encounter Details Date Type Department Care Team (Latest Contact Info) Description 10/09/2010 Abstract [facility] Medical Group Eusebia Diaz PA [address] [facility] [place] [address] Social History Tobacco Use Types Packs/Day Years Used Date Smoking Tobacco: Never Assessed Comments Unknown Sex and Gender Information Value Date Recorded Sex Assigned at Not on file Legal Sex Female 9:15 PM BUILD AND DEPLOYMENT 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 She thinks its from the heat at work History of Present Illness Dizziness: Elsa Browne presents with complaints of dizziness. The patient presents with complaints of sudden onset of constant episodes of severe generalized weakness. Episodes started about 1-2 days ago. Her symptoms are probably caused by change in activity level. Symptoms are improved by rest and sitting down. Symptoms are made worse by exertion and heat. She states the symptoms are worsening. The patient confirms having nausea and headache. The patient denies having syncope, difficulty ambulating, vomiting, diarrhea, fever, symptoms of anupper respiratory infection, ear pain, ear fullness, tinnitus, hearing loss, neck pain, neck stiffness, visual changes, dysarthria, dysphagia, facial weakness and falling episodes. Review of Systems Constitutional: Normal. ENT: normal. Cardiovascular: Normal. Respiratory: Normal. Gastrointestinal: Normal. Genitourinary: Normal. Active Problems 1 Anxiety 300.00 2 Furuncle 680.9 3 Headache 784.0 Current Meds 1 Hydrocodone-Ibuprofen 7.5-200 MG Oral Tablet; Status: ACTIVE 2 Necon (28) TABS; Status: ACTIVE 3 Prograf 1 MG Oral Capsule; TAKE 4 MG Every twelve hours; Status: ACTIVE Allergies 1 Aspirin TABS 2 Erythromycin Derivatives Vitals [id number] 04:49PM Temperature 98.7 F Heart Rate 84 Respiration 18 Systolic 110 Diastolic 62 Weight 118 lb Physical Exam Constitutional General appearance: Normal. Well developed and well nourished. Eyes Conjunctiva and lids: Normal. Conjunctiva:. The conjunctiva were normal in both eyes. Eye Lids:. The eyelids were normal bilaterally. Ears, Nose, Mouth, and Throat Oropharynx: Abnormal. The oral mucosa was dry, but was not erythematous. Examination of the palate showed no abnormalities. The tongue was normal. The tonsils were normal. Abdomen Abdomen: Normal. The abdomen was scaphoid. Bowel sounds were normal. The abdomen was soft and nontender. No masses were palpated. Skin Skin and subcutaneous tissue: Normal. Dry skin. Psychiatric Orientation to person, place, and time: Normal. Assessment 1 Dehydration (Na, H2O) 276.51 2 Headache 784.0 Plan Dehydration (Na, H2O) (276.51) ?? Ondansetron HCl 4 MG/2ML Injection Solution; INJECT 2 ML Intravenous; Status: COMPLETE; Done: [id number] ?? Sodium Chloride 0.9 % Intravenous Solution; INFUSE 1000 ML Intravenous; Status: COMPLETE; Done: [id number] Headache (784.0) ?? Ketorolac Tromethamine 30 MG/ML Injection Solution; INJECT 1 ML Intravenous; Status: COMPLETE; Done: [id number] ?? Orphenadrine Citrate 30 MG/ML Injection Solution; INJECT 2 ML Intravenous; Status: COMPLETE; Done: [id number] H/a still present, but pt has migraines and states she has hydrocodone at home. Pt to push fluids tomorrow. Eat well and f/u with pcp. Signatures Electronically signed by : Esuebia Diaz PA-C; Oct 10 2010 7:06AM D AND DEPLOYMENT ENGINEER documented in this encounter Miscellaneous Notes * Letter - MAYITO Flood - 10/09/2010 4:45 PM CDT To whom it may concern: Elsa was seen in office today, please excuse her. She may return to work on October 10, 2010. Thank you. Sincerely Eusebia Diaz PA-C/ Conrado JURADO Electronically signed by:Kirsten Dunaway Oct 09 2010 5:09PM BUILD AND DEPLOYMENT ENGINEER Author Electronically signed by:Eusebia Diaz PA-C Oct 09 2010 5:48PM BUILD AND DEPLOYMENT ENGINEER D AND DEPLOYMENT ENGINEER documented in this encounter Plan of Treatment Not on file documented as of this encounter Visit Diagnoses Not on filedocumented in this encounter Care Teams Director It Relationship Specialty Start Date End Date Hermes Ramirez III, MD [address] [address] PCP - General FAMILY PRACTICE 06/20/17 documented as of this encounter
--- OUTSIDE RECORDS SUMMARY | 2024-03-20 12:11 | XMS_ITS | Encounter Summary ---
Author Organization [facility] Address [address] [place] [address]. [place], [place] [address] [place] [address] Care Team Providers Care Presiding Steward Name Role Phone Unavailable Primary Care Provider Unavailabl e Encounter Details Date Type Department Care Team (Late st Contact Info) Description 06/25/2010 Abstract [place] [address] [place] [address] Social History Tobacco Use Types Packs/Day Years Used Date Smoking Tobacco: Never Assessed Comments Unknown Sex and Gender Information Value Date Recorded Sex Assigned at Not on file Legal Sex Female 9:15 PM ACCOUNTING MANAGER ASSISTANT CONTROLLER Gender Identity Not on file Sexual Orientation Not on file documented as of this encounter Plan of Treatment Not on file documented as of this encounter Visit Diagnoses Diagnosis Chronic salpingitis and oophoritis documented in this encounter
--- OUTSIDE RECORDS SUMMARY | 2024-03-20 12:11 | XMS_ITS | Encounter Summary ---
Author Organization [facility] Address [address] [place] [address]. [place] [address] [place] [address] Care Team Providers Care It Applications Analyst Name Role Phone Ashley ZUNIGA MD, Hermes Perez Primary Care Provid er Encounter Details Date Type Department Care Team (Latest Contact Info) Description 05/29/2010 Abstract [facility] Medical Group Joshua Huang MD [address] [facility] [place] [address] Social History Tobacco Use Types Packs/Day Years Used Date Smoking Tobacco: Never Assessed Comments Unknown Sex and Gender Information Value Date Recorded Sex Assigned at Not on file Legal Sex Female 9:15 PM FLIGHT TEST SHOP MECHANIC Gender Identity Not on file Sexual Orientation Not on file documented as of this encounter Last Filed Vital Signs Vital Sign Reading Time Taken Comments Blood Pressure 90/68 05/29/2010 1:11 PM FLIGHT TEST SHOP MECHANIC Pulse 80 05/29/2010 1:11 PM FLIGHT TEST SHOP MECHANIC Temperature - - Respiratory Rate - - Oxygen Saturation - - Inhaled Oxygen Concentration - - Weight 55.8 kg (123 lb) 05/29/2010 1:11 PM FLIGHT TEST SHOP MECHANIC Height 157.5 cm (5' 2 ) 05/29/2010 1:11 PM FLIGHT TEST SHOP MECHANIC Body Mass Index 22.5 05/29/2010 1:11 PM FLIGHT TEST SHOP MECHANIC documented in this encounter Progress Notes * Joshua Huang MD - 05/29/2010 1:05 PM CST Chief Complaint 1 Headache Pt c/o menstral headache today with history of same. Pt has taken imitrex in the past but it makes her have body pain. pt c/o cramping also. History of Present Illness Headache: Elsa Browne presents with complaints of bilateral periorbital and bilateral frontal headache. Symptoms are improved by NSAIDs. Pertinent Medical History: migraine headaches. (associated with periods, uses imitrex yesterday with some help.ibuprofen helps) The patient confirms having typical headache features, nausea and aura. The patient denies having vomiting, photophobia, numbness, tingling, fever, chills, vertigo, ataxia, diplopia, vision loss, confusion and tinnitus. Review of Systems Constitutional: no fever. ENT: earache and nasal discharge, but no sore throat. Cardiovascular: no chest pain. Respiratory: Normal. The patient presents with complaints of abdominal pain. (menstrual cramps) Genitourinary: Normal. Integumentary: Normal. Musculoskeletal: Normal. Neurological: no limb weakness. Active Problems 1 Acute Sinusitis 461.9 2 Headache 784.0 Current Meds 1 Prograf CAPS; Status: ACTIVE Allergies 1 Aspirin TABS 2 Erythromycin Derivatives Vitals 29May2010 01:11PM Temperature 98.8 F Heart Rate 80 Respiration 14 Systolic 90 Diastolic 68 Height 5 ft 2 in Weight 123 lb BMI 22.50 kg/m2 BSA 1.55 m2 Physical Exam Constitutional General appearance: Normal. Head and Face Head and face: Normal. Palpation of the face and sinuses: Normal. Eyes Conjunctiva and lids: Normal. Pupils and irises: Normal. Ears, Nose, Mouth, and Throat External inspection of ears and nose: Normal. Otoscopic examination: Normal. The right tympanic membrane was normal. The left tympanic membrane was normal. The right external canal was normal. The left external canal was normal. Nasal mucosa, septum, and turbinates: Normal. Lips, teeth, and gums: Normal. Oropharynx: Normal. Neck Neck: Normal. Pulmonary Respiratory effort: Normal. Auscultation of lungs: Normal. Cardiovascular Auscultation of heart: Normal. Abdomen Liver and spleen: Normal. Abdomen: Normal. Neurologic Cranial nerves: Normal. Assessment 1 Headache 784.0 Plan Headache (784.0) ?? Ketorolac Tromethamine 60 MG/2ML Intramuscular Solution; INJECT 60 ML Intramuscular; Status: COMPLETE; Done: 29May2010 ?? Call [phone] if: The symptoms seem worse. Status: Active Requested for: 29May2010 ?? Call [phone] if: You become dizzy or lightheaded, especially when you stand up after sitting forawhile. Status: Active Requested for: 29May2010 ?? Decreasing the stress in your life may help your condition improve. Status: Active Requested for: 29May2010 ?? Reducing the stress in your child's life may help your child's condition improve. Status: ActiveRequested for: 29May2010 Signatures Electronically signed by : Joshua Huang M.D.; May 29 2010 3:10PM HT TEST SHOP MECHANIC documented in this encounter Miscellaneous Notes * Letter - Joshua Huang MD - 05/29/2010 1:05 PM CST Please excuse Elsa Browne from work on 05/29/10 due to illness. Joshua Huang M.D. Electronically signed by:Tabatha Murillo May 29 2010 1:52PM FLIGHT TEST SHOP MECHANIC Author Electronically signed by:Joshua Huang M.D. May 29 2010 3:09PM FLIGHT TEST SHOP MECHANIC HT TEST SHOP MECHANIC documented in this encounter Plan of Treatment Not on file documented as of this encounter Visit Diagnoses Not on filedocumented in this encounter Care Teams It Applications Analyst Relationship Specialty Start Date End Date Hermes Ramirez III, MD [address] [address] PCP - General FAMILY PRACTICE 06/20/17 documented as of this encounter
--- OUTSIDE RECORDS SUMMARY | 2024-03-20 12:11 | XMS_ITS | Encounter Summary ---
Author Organization [facility] Address [address] [place] [address]. [place] [address] [place] [address] Care Team Providers Care Procurement Consultant Name Role Phone Ashley ZUNIGA MD, Hermes Perez Primary Care Provid er Encounter Details Date Type Department Care Team (Late st Contact Info) Description 05/27/[address] [facility] [address] [place] [address] , Lazara Lange MD Social History Tobacco Use Types Packs/Day Years Used Date Smoking Tobacco: Never Assessed Comments Unknown Sex and Gender Information Value Date Recorded Sex Assigned at Not on file Legal Sex Female 9:15 PM SEDIMENTATIONIST Gender Identity Not on file Sexual Orientation [...] Rule Out 03/30/2020 03/30/2020 03/30/2020 9:29 PM SEDIMENTATIONIST COVID-19 Rule Out 03/30/2020 03/30/2020 03/31/2020 12:28 PM SEDIMENTATIONIST documented as of this encounter Care Teams Procurement Consultant Relationship Specialty Start Date End Date Hermes Ramirez III, MD [address] [facility] [address] [place] [address] PCP - General FAMILY PRACTICE 06/20/17 documented as of this encounter
--- OUTSIDE RECORDS SUMMARY | 2024-03-20 12:11 | XMS_ITS | Encounter Summary ---
Author Organization [facility] Address [address] [place] [address]. [place] [address] [place] [address] Care Team Providers Care Nozzle Tender Name Role Phone Ashley ZUNIGA MD, Hermes Perez Primary Care Provid er Encounter Details Date Type Department Care Team (Late st Contact Info) Description 10/17/2005 Abstract [facility] [address] [place] [address] Lazara Case MD Social History Tobacco Use Types Packs/Day Years Used Date Smoking Tobacco: Never Assessed Comments Unknown Sex and Gender Information Value Date Recorded Sex Assigned at Not on file Legal Sex Female 9:15 PM MAILROOM COORDINATOR Gender Identity Not on file Sexual [...] Rule Out 03/30/2020 03/30/2020 03/30/2020 9:29 PM MAILROOM COORDINATOR COVID-19 Rule Out 03/30/2020 03/30/2020 03/31/2020 12:28 PM MAILROOM COORDINATOR documented as of this encounter Care Teams Nozzle Tender Relationship Specialty Start Date End Date Hermes Ramirez III, MD [address] [facility] [address] [place] [address] PCP - General FAMILY PRACTICE 06/20/17 documented as of this encounter
--- OUTSIDE RECORDS SUMMARY | 2024-03-20 12:11 | XMS_ITS | Encounter Summary ---
Author Organization [facility] Address [address] [place] [address]. [place] [address] [place] [address] Care Team Providers Care Culturist Name Role Phone Ashley ZUNIGA MD, Hermes Perez Primary Care Provid er Encounter Details Date Type Department Care Team (Latest Contact Info) Description 07/01/2013 Abstract [facility] Medical Group Lazara Case MD Social History Tobacco Use Types Packs/Day Years Used Date Smoking Tobacco: Never Assessed Comments Unknown Sex and Gender Information Value Date Recorded Sex Assigned at Not on file Legal Sex Female 9:15 PM REGISTRY NP Gender Identity Not on file Sexual Orientation Not on file documented as of this encounter Last Filed Vital Signs Vital Sign Reading Time Taken Comments Blood Pressure 112/66 07/01/2013 1:29 PM CDT Pulse 80 07/01/2013 1:29 PM CDT Temperature - - Respiratory Rate - - Oxygen Saturation - - Inhaled Oxygen Concentration - - Weight 62.6 kg (138 lb) 07/01/2013 1:29 PM CDT Height 157.5 cm (5' 2 ) 07/01/2013 1:29 PM CDT Body Mass Index 25.24 07/01/2013 1:29 PM CDT documented in this encounter Plan of Treatment Not on file documented as of this encounter Visit Diagnoses Not on filedocumented in this encounter Care Teams Culturist Relationship Specialty Start Date End Date Hermes Ramirez III, MD [address] [facility] [address] [place] [address] PCP - General FAMILY PRACTICE 06/20/17 documented as of this encounter
--- OUTSIDE RECORDS SUMMARY | 2024-03-20 12:11 | XMS_ITS | Encounter Summary ---
Author Organization [facility] Address [address] [place] [address]. [place] [address] [place] [address] Care Team Providers Care Sales Team Member Name Role Phone Ashley ZUNIGA MD, Hermes Perez Primary Care Provid er Encounter Details Date Type Department Care Team ([facility] st Contact Info) Description 02/02/2009 Abstract [facility] [address] [place] [address] , Lazara Lange MD Social History Tobacco Use Types Packs/Day Years Used Date Smoking Tobacco: Never Assessed Comments Unknown Sex and Gender Information Value Date Recorded Sex Assigned at Not on file Legal Sex Female 9:15 PM FORMULATION TECHNICIAN Gender Identity Not on file Sexual [...] Rule Out 03/30/2020 03/30/2020 03/30/2020 9:29 PM FORMULATION TECHNICIAN COVID-19 Rule Out 03/30/2020 03/30/2020 03/31/2020 12:28 PM FORMULATION TECHNICIAN documented as of this encounter Care Teams Sales Team Member Relationship Specialty Start Date End Date Hermes Ramirez III, MD [address] [facility] [address] [place] [address] PCP - General FAMILY PRACTICE 06/20/17 documented as of this encounter
--- OUTSIDE RECORDS SUMMARY | 2024-03-20 12:11 | XMS_ITS | Encounter Summary ---
Author Organization [facility] Address [address] [place] [address]. [place] [address] [place] [address] Care Team Providers Care Automotive Service Management Teacher Name Role Phone Ashley ZUNIGA MD, Hermes Perez Primary Care Provid er Encounter Details Date Type Department Care Team (Late st Contact Info) Description 07/02/2009 Abstract [facility] [address] [place] [address] , Generic ConversionMD Social History Tobacco Use Types Packs/Day Years Used Date Smoking Tobacco: Never Assessed Comments Unknown Sex and Gender Information Value Date Recorded Sex Assigned at Not on file Legal Sex Female 9:15 PM NETWORKING SPECIALIST Gender Identity Not on file Sexual [...] Rule Out 03/30/2020 03/30/2020 03/30/2020 9:29 PM NETWORKING SPECIALIST COVID-19 Rule Out 03/30/2020 03/30/2020 03/31/2020 12:28 PM NETWORKING SPECIALIST documented as of this encounter Care Teams Automotive Service Management Teacher Relationship Specialty Start Date End Date Hermes Ramirez III, MD [address] [facility] [address] [place] [address] PCP - General FAMILY PRACTICE 06/20/17 documented as of this encounter
--- OUTSIDE RECORDS SUMMARY | 2024-03-20 12:11 | XMS_ITS | Encounter Summary ---
Author Organization [facility] Address [address] [place] [address]. 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 LYMPHOCYTES 0.88 0.80 - 4.70 K/cumm [facility] TO EPIC CONVERSION ABS. EOSINOPHILS 0.06 0.00 - 0.40 K/cumm [facility] TO EPIC CONVERSION ABS. BASOPHILS 0.00 0.00 - 0.20 K/cumm [facility] TO EPIC CONVERSION RBC 3.25(L) 4.10 - 5.40 M/cumm [facility] TO EPIC CONVERSION HGB 10.4(L) 12.0 - 16.0 gm/dL [facility] TO EPIC CONVERSION PLT 102(L) 150 - 350 K/cumm [facility] TO EPIC CONVERSION MPV 11.3(H) 7.4 - 10.4 fL [facility] TO EPIC CONVERSION HCT 30.2(L) 36.0 - 47.0 % [facility] TO EPIC CONVERSION MCHC 34.4 33.0 - 36.0 gm/dL [facility] TO EPIC CONVERSION ABS. NEUTROPHILS TOTAL 4.44 1.60 - 8.30 K/cumm [facility] TO EPIC CONVERSION ABS. MONOCYTES 0.22 0.00 - 1.50 K/cumm [facility] TO EPIC CONVERSION 09/22/2010 8:10 PM CDT 09/22/2010 8:10 PM CDT Narrative [facility] TO EPIC CONVERSION - 09/22/2010 8:23 PM CDT Result Communication: No patient communication needed at this time [facility] Final Re sult [facility] TO EPIC CONVERSION documented in this encounter Visit Diagnoses Not on filedocumented in this encounter Care Teams Rivet Catcher Relationship Specialty Start Date End Date Hermes Ramirez III, MD [address] [facility] [address] [place] [address] PCP - General FAMILY PRACTICE 06/20/17 documented as of this encounter
--- OUTSIDE RECORDS SUMMARY | 2024-03-20 12:11 | XMS_ITS | Encounter Summary ---
Author Organization [facility] Address [address] [place] [address]. 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
--- OUTSIDE RECORDS SUMMARY | 2024-03-20 12:11 | XMS_ITS | Encounter Summary ---
Author Organization [facility] Address [address] [place] [address]. [place] [address] [place] [address] Care Team Providers Care Purchasing Department Clerk Name Role Phone Ashley ZUNIGA MD, Hermes Perez Primary Care Provid er Encounter Details Date Type Department Care Team (Late st Contact Info) Description 10/04/2005 Abstract [facility] [address] [place] [address] Lazara Case MD Social History Tobacco Use Types Packs/Day Years Used Date Smoking Tobacco: Never Assessed Comments Unknown Sex and Gender Information Value Date Recorded Sex Assigned at Not on file Legal Sex Female 9:15 PM AUDIOLOGIST Gender Identity Not on file Sexual Orientation [...] Rule Out 03/30/2020 03/30/2020 03/30/2020 9:29 PM AUDIOLOGIST COVID-19 Rule Out 03/30/2020 03/30/2020 03/31/2020 12:28 PM AUDIOLOGIST documented as of this encounter Care Teams Purchasing Department Clerk Relationship Specialty Start Date End Date Hermes Ramirez III, MD [address] [facility] [address] [place] [address] PCP - General FAMILY PRACTICE 06/20/17 documented as of this encounter
--- OUTSIDE RECORDS SUMMARY | 2024-03-20 12:11 | XMS_ITS | Encounter Summary ---
Author Organization [facility] Address [address] [place] [address]. 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 Gender Identity Not on file Sexual Orientation Not on file documented as of this encounter Last Filed Vital Signs Vital Sign Reading Time Taken Comments Blood Pressure 110/66 07/21/2010 9:04 AM CDT Pulse 60 07/21/2010 9:04 AM CDT Temperature - - Respiratory Rate - - Oxygen Saturation - - Inhaled Oxygen Concentration - - Weight 54.4 kg (120 lb) 07/21/2010 9:04 AM CDT Height 157.5 cm (5' 2 ) 07/21/2010 9:04 AM CDT Body Mass Index 21.95 07/21/2010 9:04 AM CDT documented in this encounter Progress Notes * Neil De La Cruz MD - 07/21/2010 9:00 AM CDT Chief Complaint 1 Headache Pt c/o migrane headache due to menses cycle, a knot on inside of right inner thigh, and anxiety. History of Present Illness has 3 issues: 1. furuncle R upper medial thigh, which has been squeezed to obtain pus by patient several times, none recently;has not been treated for this but was on incidental non-MRSA antibiotics in past 2 months ;no fever 2. migraine, which is actually frontal and occiptal pain off and on for aweek and which she attributes to her periods;she has taken some fiorinal for it yet;she is not truly allegic to asa and has tolerated toradol in past;claims ultram does not help 3. wants an anxiety agent for an upcoming flight in a few days Review of Systems Constitutional: feeling poorly, but no fever. Respiratory: no cough. Gastrointestinal: no vomiting and no diarrhea. Integumentary: skin lesion. Neurological: no confusion. Active Problems 1 Acute Sinusitis 461.9 2 Headache 784.0 Current Meds 1 Prograf CAPS; Status: ACTIVE Allergies 1 Aspirin TABS 2 Erythromycin Derivatives Vitals 21Jul2010 09:04AM Temperature 98.1 F Heart Rate 60 Respiration 12 Systolic 110 Diastolic 66 Height 5 ft 2 in Weight 120 lb BMI 21.95 kg/m2 BSA 1.54 m2 Physical Exam Constitutional General appearance: Abnormal. Dark circles under eyes;quiet but no distress Eyes Conjunctiva and lids: Normal. Pupils and irises: Normal. Ears, Nose, Mouth, and Throat Otoscopic examination: Normal. Pulmonary Respiratory effort: Normal. Auscultation of lungs: Normal. Cardiovascular Auscultation of heart: Normal. Abdomen Liver and spleen: Normal. Abdomen: Abnormal. Several lap scars;soft and nontender Musculoskeletal Gait and station: Normal. Skin Skin and subcutaneous tissue: Abnormal. Has an indurated 2 cm papule without fluctuance over the R inguinal area;no drainage Neurologic Reflexes: Normal. Psychiatric Orientation to person, place, and time: Normal. Mood and affect: Normal. Assessment 1 Headache 784.0 2 Furuncle 680.9 3 Anxiety 300.00 Plan Unlinked ?? ALPRAZolam 0.5 MG Oral Tablet; TAKE 1 TABLET 3 TIMES DAILY NEEDED; Status: ACTIVE ?? Ketorolac Tromethamine 60 MG/2ML Injection Solution; INJECT 2 ML Intramuscular; Status: HOLD FOR- Administration; To Be Done: 21Jul2010 ?? Sulfamethoxazole-TMP DS 800-160 MG Oral Tablet; TAKE 1 TABLET TWICE DAILY UNTIL FINISHED; Status: ACTIVE advised the antianxiety agent is short term only and this is not an order we generally offer for nonmember patients;fu PCP prn Signatures Electronically signed by : Neil De La Cruz M.D.; Jul 21 2010 9:54AM LY CHAIN INTERN documented in this encounter Plan of Treatment Not on file documented as of this encounter Visit Diagnoses Not on filedocumented in this encounter Care Teams Biochemist Relationship Specialty Start Date End Date Hermes Ramirez III, MD [address] [place] [address] PCP - General FAMILY PRACTICE 06/20/17 documented as of this encounter
--- OUTSIDE RECORDS SUMMARY | 2024-03-20 12:11 | XMS_ITS | Encounter Summary ---
Author Organization [facility] Address [address] [place] [address]. 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 Gender Identity Not on file Sexual Orientation Not on file documented as of this encounter Last Filed Vital Signs Vital Sign Reading Time Taken Comments Blood Pressure 100/60 06/27/2013 8:50 AM CDT UPT -Negative UPT-Negative Pulse 88 06/27/2013 8:50 AM CDT UPT-N egative Temperature - - Respiratory Rate - - Oxygen Saturation - - Inhaled Oxygen Concentration - - Weight - - Height - - Body Mass Index - - documented in this encounter Plan of Treatment Not on file documented as of this encounter Procedures Procedure Name Priority Date/Time Associated Diagnosis Comments PATHOLOGY Routine 06/27/2013 5:33 PM CDT documented in this encounter Results * Pathology (06/27/2013 5:33 PM CDT) PATHOLOGY [facility] T O EPIC CONVERSION Comment: Patient Name: MIHSA JACKSON. Specimen #: [id number] ?? Procedure Date: 06/27/2013 /Age: 07 1980 (Age: 32) Gender: ??F Accessioned: 06/28/2013 Address: [address] [place] [address] ??[id number] Reported: 06/28/2013 ?? Encounter: [id number] Location: [facility] ?? Physician(s): MARIA ISABEL JENNINGS MD ?SURGICAL PATHOLOGY REPORT Diagnosis: 1. ??ENDOMETRIUM, BIOPSY: ? - SECRETORY ENDOMETRIUM WITHOUT DIAGNOSTIC ABNORMALITY. 2. ??VULVA, RIGHT SIDE, BIOPSY: ? - HIGH-GRADE SQUAMOUS INTRAEPITHELIAL LESION (ALBARO 3). 3. VULVA, LEFT SIDE, BIOPSY: ? - HIGH-GRADE SQUAMOUS INTRAEPITHELIAL LESION (ALBARO 3). DANAE SIMMONS M.D. ? Report Electronically Signed ? Specimen(s) Received: 1: ENDOMETRIAL BX 2: RIGHT VULVAR BX 3: LEFT VULVAR BX Clinical Diagnosis & History: Excessive or frequent menstruation. Benign neoplasm of vulva. Gross Description: 1. ??The specimen is labeled EMBX. ??Received in formalin is a 2.9 x 2.3 x 0.2 cm aggregate of valadez-pink tissue. ??All in one cassette. 2. ?? The specimen is labeled right vulvar bx. ??Received in formalin is one 0.6 cm piece of white-valadez tissue. ??All in one cassette. 3. ?? The specimen is labeled left vulvar bx. ??Received in formalin is one 0.5 cm piece of white-valadez tissue. ??All in one cassette. /[facility] MAYITO Hercules (ASCP) ?? Microscopic Examination: (EXAMINED) 06/27/2013 5:33 PM CDT Narrative [facility] TO EPIC CONVERSION - 06/27/2013 5:33 PM CDT [Task Forwarded to ARGENIS] sched. brief check us Maria Isabel Jennings MD PATHOLOGY/CYTOLOGY ORDERAB LES Final Result [facility] TO EPIC CONVERSION documented in this encounter Visit Diagnoses Not on filedocumented in this encounter Care Teams Disaster Recovery Coordinator Relationship Specialty Start Date End Date Hermes Ramirez III, MD [address] [address] PCP - General FAMILY PRACTICE 06/20/17 documented as of this encounter
--- OUTSIDE RECORDS SUMMARY | 2024-03-20 12:11 | XMS_ITS | Encounter Summary ---
Author Organization [facility] Address [address] [place] [address]. 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
--- OUTSIDE RECORDS SUMMARY | 2024-03-20 12:11 | XMS_ITS | Encounter Summary ---
Author Organization [facility] Address [address] [place] [address]. 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 Gender Identity Not on file Sexual Orientation Not on file documented as of this encounter Plan of Treatment Not on file documented as of this encounter Procedures Procedure Name Priority Date/Time Associated Diagnosis Comments HEPATIC FUNCTION PANEL Routine 09/22/2010 8:10 PM CDT AMYLASE Routine 09/22/2010 8:10 PM CDT LIPASE Routine 09/22/2010 8:10 PM CDT documented in this encounter Results * LIPASE (09/22/2010 8:10 PM CDT) LIPASE 18 6 - 63 U/L [facility] TO EPIC CONVERSION 09/22/2010 8:10 PM CDT 09/22/2010 8:10 PM CDT Narrative [facility] TO EPIC CONVERSION - 09/22/2010 8:23 PM CDT Result Communication: No patient communication needed at this time us Lenora [facility] Final Re sult Performing Organization Address [facility] Co de Phone Number [facility] TO EPIC CONVERSION * AMYLASE (09/22/2010 8:10 PM CDT) AMYLASE S/P/B 49 0 - 93 U/L [facility] OUP TO EPIC CONVERSION 09/22/2010 8:10 PM CDT 09/22/2010 8:10 PM CDT Narrative [facility] TO EPIC CONVERSION - 09/22/2010 8:23 PM CDT Result Communication: No patient communication needed at this time us Lenora [facility] Final Re sult Performing Organization Address [facility] de Phone Number [facility] TO EPIC CONVERSION * (ABNORMAL) HEPATIC FUNCTION PANEL (09/22/2010 8:10 PM CDT) BILIRUBIN TOTAL S/P/B 0.6 0.2 - 1.2 mg/dL [facility] TO EPIC CONVERSION ALBUMIN S/P/B 4.0 3.4 - 4.9 g/dL [facility] TO EPIC CONVERSION ALT 18 0 - 40 U/L [facility] TO EPIC CONVERSION BILIRUBIN DIRECT S/P/B 0.2 0.0 - 0.3 mg/dL [facility] TO EPIC CONVERSION ALKALINE PHOSPHATASE S/P/B 263(H) 37 - 98 U/L [facility] TO EPIC CONVERSION AST 20 0 - 40 U/L [facility] TO EPIC CONVERSION TOTAL PROTEIN S/P/B 6.9 6.0 - 8.3 g/dL [facility] TO EPIC CONVERSION 09/22/2010 8:10 PM CDT 09/22/2010 8:10 PM CDT Narrative [facility] TO EPIC CONVERSION - 09/22/2010 8:23 PM CDT Result Communication: No patient communication needed at this time us Lenora [facility] Final Re sult [facility] TO EPIC CONVERSION documented in this encounter Visit Diagnoses Not on filedocumented in this encounter Care Teams Angiography Technologist Relationship Specialty Start Date End Date Hermes Ramirez III, MD [address] [facility] [address] [place] [address] PCP - General FAMILY PRACTICE 06/20/17 documented as of this encounter
--- OUTSIDE RECORDS SUMMARY | 2024-03-20 12:11 | XMS_ITS | Encounter Summary ---
Author Organization [facility] Address [address] [place] [address]. 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 Gender Identity Not on file Sexual Orientation Not on file documented as of this encounter Last Filed Vital Signs Vital Sign Reading Time Taken Comments Blood Pressure 100/70 11/01/2010 5:36 PM CDT Pulse 100 11/01/2010 5:36 PM CDT Temperature - - Respiratory Rate - - Oxygen Saturation - - Inhaled Oxygen Concentration - - Weight 54.9 kg (121 lb) 11/01/2010 5:36 PM CDT Height 157.5 cm (5' 2 ) 11/01/2010 5:36 PM CDT Body Mass Index 22.13 11/01/2010 5:36 PM CDT documented in this encounter Progress Notes * MAYITO Flood - 11/01/2010 5:10 PM CDT Chief Complaint 1 Sore Throat Pt c/o sore throat thinks she may have thrush for 1 week. Pt is currently taking Cipro has five more days before completion. Review of Systems Constitutional: Normal. The patient presents with complaints of sudden onset of constant episodes of moderate bilateral sore throat, described as dull, non-radiating. Episodes started about 2 days ago. Symptoms are made worse by swallowing liquids and swallowing solids. She states the symptoms are worsening. Cardiovascular: Normal. Respiratory: Normal. Gastrointestinal: Normal. Active Problems 1 Anxiety 300.00 Current Meds 1 Hydrocodone-Ibuprofen 7.5-200 MG Oral Tablet; Status: ACTIVE 2 Necon (28) TABS; Status: ACTIVE 3 Prograf 1 MG Oral Capsule; TAKE 4 MG Every twelve hours; Status: ACTIVE Allergies 1 Aspirin TABS 2 Erythromycin Derivatives Vitals [id number] 05:36PM Temperature 98.6 F Heart Rate 100 Respiration 16 Systolic 100 Diastolic 70 Height 5 ft 2 in Weight 121 lb BMI 22.13 kg/m2 BSA 1.54 m2 Physical Exam Constitutional General appearance: Normal. Well developed and well nourished. Eyes Conjunctiva and lids: Normal. Conjunctiva:. The conjunctiva were normal in both eyes. Eye Lids:. The eyelids were normal bilaterally. Ears, Nose, Mouth, and Throat Oropharynx: Abnormal. Examination of the oropharynx showed a 1 mm ulcer. Examination of the palate showed no abnormalities. The tongue was normal. The tonsils were cryptic. There was exudate on the right tonsil. Lymphatic Palpation of lymph nodes in neck: Normal. Posterior cervical nodes: Nodes not enlarged, Supraclavicular nodes: Nodes not enlarged Psychiatric Orientation to person, place, and time: Normal. Procedure Following pt gargling with 2% viscous lidocaine, a tonsillar stone was able to be extracted with tongue blade. Pt tolerated well. Assessment 1 Oral Thrush 112.0 2 Aphthous Ulcer 528.2 Plan Aphthous Ulcer (528.2) ?? Drink at least 6 glasses of clear liquids a day. Status: Active Requested for: [id number] ?? Drinking cool liquids or sucking on frozen Popsicles may help ease your pain. Status: Active Requested for: [id number] ?? Eat only soft foods. Status: Active Requested for: [id number] ?? Good handwashing is one of the best ways to control the spread of germs. Status: Active Requested for: [id number] ?? To relieve mouth pain, mix equal portions of a liquid antacid and liquid Benadryl (diphenhydramine). Status: Active Requested for: [id number] Unlinked ?? Drink plenty of fluids. Status: Need Information - Billable Problem Requested for: [id number] ?? Eat only soft foods. Status: Need Information - Billable Problem Requested for: [id number] ?? Necon (28) TABS; Status: DISCONTINUED ?? Nystatin 182892 UNIT/ML Mouth/Throat Suspension; Swish and swallow 1 teaspoonful 4 times daily; Status: ACTIVE Pt careguide given. Pt advised to get Prevention oncology mouth wash. F/u with pcp accordingly. Signatures Electronically signed by : Eusebia Diaz PA-C; Nov 01 2010 6:00PM NTIST PROPAGATOR documented in this encounter Plan of Treatment Not on file documented as of this encounter Visit Diagnoses Not on filedocumented in this encounter Care Teams Chief Projectionist Relationship Specialty Start Date End Date Hermes Ramirez III, MD [address] [place] [id number] PCP - General FAMILY PRACTICE 06/20/17 documented as of this encounter
--- OUTSIDE RECORDS SUMMARY | 2024-03-20 12:11 | XMS_ITS | Encounter Summary ---
Author Organization [facility] Address [address] [place] [address]. 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 [address] [place] [address] PCP - General FAMILY PRACTICE 06/20/17 documented as of this encounter
--- OUTSIDE RECORDS SUMMARY | 2024-03-20 12:11 | XMS_ITS | Encounter Summary ---
Author Organization [facility] Address [address] [place] [address]. 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 Gender Identity Not on file Sexual Orientation Not on file documented as of this encounter Plan of Treatment Not on file documented as of this encounter Procedures Procedure Name Priority Date/Time Associated Diagnosis Comments BMP W IONIZED CA BLOOD Routine 09/22/2010 8:10 PM CDT documented in this encounter Results * (ABNORMAL) BMP W IONIZED CA BLOOD (09/22/2010 8:10 PM CDT) SODIUM WHOLE BLOOD 139 138 - 146 mmol/L [facility] TO EPIC CONVERSION POTASSIUM WHOLE BLOOD 4.1 3.5 - 4.9 mmol/L [facility] TO EPIC CONVERSION CHLORIDE WHOLE BLOOD 112(H) 98 - 109 mmol/L [facility] TO EPIC CONVERSION CA IONIZED WH BLOOD 1.2 1.1 - 1.3 mmol/L [facility] TO EPIC CONVERSION POC CO2 WHOLE BLOOD 24 22 - 29 mmol/L [facility] TO EPIC CONVERSION GLUCOSE POC 76 70 - 105 mg/dL [facility] TO EPIC CONVERSION BUN WHOLE BLOOD 15 8 - 26 mg/dL [facility] TO EPIC CONVERSION CREATININE WHOLE BLOOD 1.7(H) 0.7 - 1.2 mg/dL [facility] TO EPIC CONVERSION OSMOLALITY (CALC) 277 mOsm/kG [facility] TO EPIC CONVERSION ANION GAP 8 mmol/L [facility] T O EPIC CONVERSION 09/22/2010 8:10 PM CDT 09/22/2010 8:10 PM CDT Narrative [facility] TO EPIC CONVERSION - 09/22/2010 8:23 PM CDT Result Communication: No patient communication needed at this time us [facility] Final Re sult [facility] TO EPIC CONVERSION documented in this encounter Visit Diagnoses Not on filedocumented in this encounter Care Teams Director Medicaid Relationship Specialty Start Date End Date Hermes Ramirez III, MD [address] [facility] [address] [place] [address] PCP - General FAMILY PRACTICE 06/20/17 documented as of this encounter
--- OUTSIDE RECORDS SUMMARY | 2024-03-20 12:11 | XMS_ITS | Encounter Summary ---
Author Organization [facility] Address [address] [place] [address]. [place], [place] [address] [place] [address] Care Team Providers Care Waterworks Employee Name Role Phone Ashley ZUNIGA MD, Hermes Perez Primary Care Provid er Encounter Details Date Type Department Care Team (Late st Contact Info) Description 05/04/2005 Abstract [facility] [address] [place] [address] Ned Alonzo MD [address] [place] [address] Social History Tobacco Use Types Packs/Day Years Used Date Smoking Tobacco: Never Assessed Comments Unknown Sex and Gender Information Value Date Recorded Sex Assigned at Not on file Legal Sex Female 9:15 PM DAMAGE ADJUSTER Gender Identity Not on file Sexual Orientation [...] Rule Out 03/30/2020 03/30/2020 03/30/2020 9:29 PM DAMAGE ADJUSTER COVID-19 Rule Out 03/30/2020 03/30/2020 03/31/2020 12:28 PM DAMAGE ADJUSTER documented as of this encounter Care Teams Waterworks Employee Relationship Specialty Start Date End Date Hermes Ramirez III, MD [address] [facility] [address] [place] [address] PCP - General FAMILY PRACTICE 06/20/17 documented as of this encounter
--- OUTSIDE RECORDS SUMMARY | 2024-03-20 12:11 | XMS_ITS | Encounter Summary ---
Author Organization [facility] Address [address] [place] [address]. 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
--- OUTSIDE RECORDS SUMMARY | 2024-03-20 12:11 | XMS_ITS | Encounter Summary ---
Author Organization [facility] Address [address] [place] [address]. 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 Gender Identity Not on file Sexual Orientation Not on file documented as of this encounter Last Filed Vital Signs Vital Sign Reading Time Taken Comments Blood Pressure 110/76 06/21/2013 10:15 AM CDT Pulse 96 06/21/2013 10:15 AM CDT Temperature - - Respiratory Rate - - Oxygen Saturation - - Inhaled Oxygen Concentration - - Weight 64 kg (141 lb) 06/21/2013 10:15 AM CDT Height - - Body Mass Index 25.79 11/13/2010 10:20 AM CDT documented in this encounter Plan of Treatment Not on file documented as of this encounter Procedures Procedure Name Priority Date/Time Associated Diagnosis Comments THINPREP IMAGING SYSTEM PAP Routine 06/21/2013 11:37 AM CDT documented in this encounter Results * (ABNORMAL) THINPREP IMAGING SYSTEM PAP (06/21/2013 11:37 AM CDT) PATHOLOGY (A) [facility] T O EPIC CONVERSION Comment: Patient Name: RENETTA MISHA A. Specimen #: [id number] ?? Procedure Date: 06/21/2013 /Age: 07 1980 (Age: 32) Gender: ??F Accessioned: 06/22/2013 Address: [address] [place], [place] ??[address] Reported: 06/26/2013 ?? Encounter: [id number] Location: [facility] ?? Physician(s): MARIA ISABEL JENNINGS MD ?? : ? CYTOPATHOLOGY - GYNECOLOGIC REPORT Diagnosis: TEST NAME: ??THINPREP PAP WITH FORENSIC ANTHROPOLOGIST,REFLEX HPV-ASCUS ONLY INTERPRETATION/RESULT: EPITHELIAL CELL ABNORMALITY: LOW-GRADE SQUAMOUS INTRAEPITHELIAL LESION. ?? STATEMENT OF ADEQUACY: SATISFACTORY FOR EVALUATION; ENDOCERVICAL/TRANSFORMATION ZONE COMPONENT PRESENT. ?? LJR CRISTHIAN MUNGUIA MD [facility]/06/26/2013 Report Electronically Signed ? Specimen: THINPREP PAP WITH FORENSIC ANTHROPOLOGIST,REFLEX HPV-ASCUS ONLY Clinical Diagnosis and History Menstrual/ History: OTHER: IRREGULAR MENSES Specimen Source: Cervical ? PAP SMEARS ARE SCREENING TESTS SUBJECT TO BOTH FALSE NEGATIVE AND FALSE POSITIVE RESULTS EVIDENCED BY DATA PUBLISHED IN THE MEDICAL LITERATURE. YOUR PATIENT' S RESULT SHOULD BE INTERPRETED IN THIS CONTEXT, TOGETHER WITH THE PATIENT' S HISTORY AND CLINICAL FINDINGS. 06/21/2013 11:3 7 AM CDT Narrative [facility] TO EPIC CONVERSION - 06/21/2013 11:37 AM CDT [Task Forwarded to [facility]] sched. colpo if not done within last yr. us Maria Isabel Jennings MD PATHOLOGY/CYTOLOGY ORDERAB LES Final Result [facility] TO EPIC CONVERSION documented in this encounter Visit Diagnoses Not on filedocumented in this encounter Care Teams Oral Communication Instructor Relationship Specialty Start Date End Date Hermes Ramirez III, MD [address] [facility] [address] [place] [address] PCP - General FAMILY PRACTICE 06/20/17 documented as of this encounter
--- OUTSIDE RECORDS SUMMARY | 2024-03-20 12:11 | XMS_ITS | Encounter Summary ---
Author Organization [facility] Address [address] [place] [address]. 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 Click on Image Link above. Procedure Note Lazara Case MD - 01/12/2018 Radiology image is available. Click on Image Link above. us Lenora Duncan APNP CT Final Re sult documented in this encounter Visit Diagnoses Not on filedocumented in this encounter Care Teams Stranding Supervisor Relationship Specialty Start Date End Date Hermes Ramirez III, MD [address] [facility] [address] [place] [address] PCP - General FAMILY PRACTICE 06/20/17 documented as of this encounter
--- OUTSIDE RECORDS SUMMARY | 2024-03-20 12:11 | XMS_ITS | Encounter Summary ---
Author Organization [facility] Address [address] [place] [address]. [place] [address] [place] [address] Care Team Providers Care Sand Operator Name Role Phone Ashley ZUNIGA MD, Hermes Perez Primary Care Provid er Encounter Details Date Type Department Care Team (Latest Contact Info) Description 11/13/2010 Abstract [facility] Medical [facility] Joshua Huang MD [address] [facility] 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 Abdominal Pain Patient c/o abdominal cramping. patient states she is on fertility medication. History of Present Illness Abdominal Pain: Elsa Browne presents with complaints of right lower quadrant abdominal pain, described as dull,non-radiating starting about 1 day ago (on fertility meds. think she is ovulating, thats when her pain comes.LMP OCTOBER 22. 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 was on protonix. Recent CT abdomensuggestive of it) Associated symptoms include no nausea, no vomiting, no diarrhea, no vaginal bleeding, no vaginal discharge, no confirmed , no fever, no anorexia, no jaundice, no melena, no bloody stool, no dysuria, no hematuria and no dark urine. Review of Systems Constitutional: no fever and no chills. ENT: normal. Cardiovascular: Normal. Respiratory: Normal. Gastrointestinal: abdominal pain, but no vomiting, no constipation and no diarrhea. Genitourinary: Normal and no dysuria. Integumentary: Normal. Musculoskeletal: Normal. Neurological: Normal. Active Problems 1. Anxiety 300.00 2. Aphthous Ulcer 528.2 3. Oral Thrush 112.0 Current Meds 1. Prograf 1 MG Oral Capsule; TAKE 4 MG Every twelve hours; Therapy: (Recorded:02Sep2010) to Allergies 1. Aspirin TABS 2. Erythromycin Derivatives Vitals [id number] 10:20AM Temperature 98.5 F Heart Rate 88 Respiration 16 Systolic 100 Diastolic 64 BMI Calculated 22.08 BSA Calculated 1.54 Height 5 ft 2 in Weight 120 lb Pain Scale 6 Physical Exam Constitutional General appearance: Normal. Ears, Nose, Mouth, and Throat Oropharynx: Normal. Pulmonary Respiratory effort: Normal. Auscultation of lungs: Normal. Cardiovascular Auscultation of heart: Normal. Abdomen Liver and spleen: Normal. Abdomen: Abnormal. (generalized discomfort to palpation) No rebound tenderness. No guarding. No CVAtenderness. Skin Skin and subcutaneous tissue: Normal. Assessment 1. Abdominal Pain 789.00 Plan Patient refused worl up, and requesting narcotic. Had multiple entries on [facility]. Explained to patient why I can't prescribed meds. F/U with PCP. Signatures Electronically signed by : Joshua Huang M.D.; Nov 13 2010 4:42PM R OPERATOR HELPER documented in this encounter Miscellaneous Notes * Letter - Generic Anisa Case MD - 11/13/2010 10:05 AM CDT To whom it may concern, Elsa Browne was seen in our office for an acute illness. She may returnto work on 11/14/2010 without restrictions. Electronically signed by:Linette Sanchez Nov 13 2010 10:26AM SHEAR OPERATOR HELPER Author Electronically signed by:Linette Sanchez Nov 13 2010 10:47AM SHEAR OPERATOR HELPER Co-author Electronically signed by:Joshua Huang M.D. Nov 13 2010 10:59AM SHEAR OPERATOR HELPER R OPERATOR HELPER documented in this encounter Plan of Treatment Not on file documented as of this encounter Visit Diagnoses Not on filedocumented in this encounter Care Teams Sand Operator Relationship Specialty Start Date End Date Hermes Ramirez III, MD [address] [address] PCP - General FAMILY PRACTICE 06/20/17 documented as of this encounter
--- OUTSIDE RECORDS SUMMARY | 2024-03-20 12:11 | XMS_ITS | Encounter Summary ---
Author Organization [facility] Address [address] [place] [address]. [place], [place] [address] [place] [address] Care Team Providers Care Attic Blower Name Role Phone Ashley ZUNIGA MD, Hermes Perez Primary Care Provid er Encounter Details Date Type Department Care Team (Late st Contact Info) Description 10/09/2005 Abstract [facility] [address] [place] [address] Felicia Roach MD [address] [place] [address] Social History Tobacco Use Types Packs/Day Years Used Date Smoking Tobacco: Never Assessed Comments Unknown Sex and Gender Information Value Date Recorded Sex Assigned at Not on file Legal Sex Female 9:15 PM NET FISHER Gender Identity Not on file Sexual [...] Rule Out 03/30/2020 03/30/2020 03/30/2020 9:29 PM NET FISHER COVID-19 Rule Out 03/30/2020 03/30/2020 03/31/2020 12:28 PM NET FISHER documented as of this encounter Care Teams Attic Blower Relationship Specialty Start Date End Date Hermes Ramirez III, MD [address] [address] PCP - General FAMILY PRACTICE 06/20/17 documented as of this encounter
--- OUTSIDE RECORDS SUMMARY | 2024-03-20 12:11 | XMS_ITS | Encounter Summary ---
Author Organization [facility] Address [address] [place] [address]. [place] [address] [place] [address] Care Team Providers Care Binder Stripper Machine Name Role Phone Ashley ZUNIGA MD, Hermes ePrez Primary Care Provid er Encounter Details Date Type Department Care Team (Latest Contact Info) Description 09/02/2010 Abstract [facility] Joshua Huang MD [address] [facility] 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 Gender Identity Not on file Sexual Orientation Not on file documented as of this encounter Last Filed Vital Signs Vital Sign Reading Time Taken Comments Blood Pressure 118/60 09/02/2010 11:02 AM CDT Pulse 80 09/02/2010 11:02 AM CDT Temperature - - Respiratory Rate - - Oxygen Saturation - - Inhaled Oxygen Concentration - - Weight 53.5 kg (118 lb) 09/02/2010 11:02 AM CDT Height 157.5 cm (5' 2 ) 09/02/2010 11:02 AM CDT Body Mass Index 21.58 09/02/2010 11:02 AM CDT documented in this encounter Progress Notes * Joshua Huang MD - 09/02/2010 10:55 AM CDT Chief Complaint 1 Abdominal Pain Pt c/o of left sided abd pain, hyx of surgery to remove scar tissue for fertility reasons. History of Present Illness Abdominal Pain: Elsa Browne presents with complaints of left lower quadrant abdominal pain, starting about 2 weeks ago. On a scale of 1 to 10, the patient rates the pain as 10. (With h/o tubalsurgery and ovariancyst, been to OB last week 2 times for same problems had 2 US was told had cyst on left side ruptured with fluid around and not siure if told maybe another cyst, was put on BCP and informed if pain in creased to go to ER to get it checked. ON Vicodin taking some many w/o help.RATES PAIN 10/10. Requesting stronger meds) The patient denies having nausea, vomiting, vaginal bleeding, vaginal discharge, fever, anorexia, jaundice, bloody stool, dysuria, hematuria and dark urine. Review of Systems Constitutional: no fever and no chills. ENT: normal. Cardiovascular: Normal. Respiratory: Normal. Gastrointestinal: abdominal pain. Genitourinary: no dysuria, no vaginal discharge and no unexplained vaginal bleeding. Integumentary: Normal. Musculoskeletal: Normal. Neurological: Normal. Active Problems 1 Acute Sinusitis 461.9 2 Anxiety 300.00 3 Furuncle 680.9 4 Headache 784.0 Current Meds 1 Hydrocodone-Ibuprofen 7.5-200 MG Oral Tablet; Status: ACTIVE 2 Necon (28) TABS; Status: ACTIVE 3 Prograf 1 MG Oral Capsule; TAKE 4 MG Every twelve hours; Status: ACTIVE Allergies 1 Aspirin TABS 2 Erythromycin Derivatives Vitals 02Sep2010 11:02AM Temperature 98.9 F Heart Rate 80 Respiration 16 Systolic 118 Diastolic 60 Height 5 ft 2 in Weight 118 lb BMI 21.58 kg/m2 BSA 1.53 m2 Physical Exam Constitutional General appearance: Abnormal. Acutely ill. Ears, Nose, Mouth, and Throat Oropharynx: Normal. Pulmonary Respiratory effort: Normal. Auscultation of lungs: Normal. Cardiovascular Auscultation of heart: Normal. Abdomen Liver and spleen: Normal. Abdomen: Abnormal. There was moderate tenderness in the left lower quadrant. No CVA tenderness. Lymphatic Palpation of lymph nodes in neck: Normal. Assessment 1 Abdominal Pain 789.00 Plan Given history patient was strongly recommended to go to ER to get repeat US, needs to r/o ovarian torsion or other pathology.Patient is reluctant to go to ER.Advised to call her OB office. I refused to give more pain meds, patient needs to be aware of worsening symptoms. Voiced her understanding. Signatures Electronically signed by : Joshua Huang M.D.; Sep 02 2010 2:05PM ONOMY TEACHER documented in this encounter Plan of Treatment Not on file documented as of this encounter Visit Diagnoses Not on filedocumented in this encounter Care Teams Binder Stripper Machine Relationship Specialty Start Date End Date Hermes Ramirez III, MD [address] [address] PCP - General FAMILY PRACTICE 06/20/17 documented as of this encounter
--- OUTSIDE RECORDS SUMMARY | 2024-03-20 12:11 | XMS_ITS | Encounter Summary ---
Author Organization [facility] Address [address] [place] [address]. [place] [address] [place] [address] Care Team Providers Care House Nurse Name Role Phone Ashley ZUNIGA MD, Hermes Perez Primary Care Provid er Encounter Details Date Type Department Care Team (Late st Contact Info) Description 05/19/2010 Abstract [facility] Medical Group Priority Care - Doreen Lopez [address] [place] [address] Terra Rodarte MD [facility] [place] [address] Social History Tobacco Use Types Packs/Day Years Used Date Smoking Tobacco: Never Assessed Comments Unknown Sex and Gender Information Value Date Recorded Sex Assigned at Not on file Legal Sex Female 9:15 PM MYSQL DATABASE 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 Gender Identity Not on file Sexual Orientation Not on file documented as of this encounter Last Filed Vital Signs Vital Sign Reading Time Taken Comments Blood Pressure 130/82 05/19/2010 6:36 PM MYSQL DATABASE DEVELOPER Pulse 88 05/19/2010 6:36 PM MYSQL DATABASE DEVELOPER Temperature - - Respiratory Rate - - Oxygen Saturation - - Inhaled Oxygen Concentration - - Weight 55.8 kg (123 lb) 05/19/2010 6:36 PM MYSQL DATABASE DEVELOPER Height - - Body Mass Index - - documented in this encounter Progress Notes * Terra Hook MD - 05/19/2010 6:30 PM CST Chief Complaint 1 Cough Cough and congestion X 1 week History of Present Illness Cough: Elsa Browne presents with complaints of cough, described as productive. The patient confirms having chills and myalgias. The patient denies having wheezing and fever. Review of Systems sinus pain/pressure Allergies 1 Aspirin TABS 2 Erythromycin Derivatives Vitals 19May2010 06:36PM Temperature 97.9 F, Oral Heart Rate 88, R PT Pulse Quality Norm, R PT Respiration 16 Respiration Quality Norm Systolic 130, LUE, Sitting Diastolic 82, LUE, Sitting Weight 123 lb Physical Exam Constitutional General appearance: Abnormal. Appears tired. Ears, Nose, Mouth, and Throat Otoscopic examination: Normal. Oropharynx: Normal. Pulmonary Respiratory effort: Normal. Auscultation of lungs: Normal. Cardiovascular Auscultation of heart: Normal. Lymphatic Palpation of lymph nodes in neck: Normal. Psychiatric Orientation to person, place, and time: Normal. Mood and affect: Normal. Mildly anxious Assessment 1 Headache 784.0 2 Acute Sinusitis 461.9 Plan Acute Sinusitis (461.9) ?? Amoxicillin-Pot Clavulanate 875-125 MG Oral Tablet; TAKE 1 TABLET EVERY 12 HOURS FOR 10 DAYS; Status: HOLD FOR - Administration; To Be Done: 19May2010 ?? Ketorolac Tromethamine 60 MG/2ML Intramuscular Solution; INJECT 60 MG (2ML) INTRAMUSCULARLY ONCEAS DIRECTED; Status: COMPLETE; Done: 19May2010 RTC prn Signatures Electronically signed by : Terra Rider M.D.; May 19 2010 8:22PM (Author) L DATABASE DEVELOPER documented in this encounter Plan of Treatment Not on file documented as of this encounter Visit Diagnoses Not on filedocumented in this encounter Care Teams House Nurse Relationship Specialty Start Date End Date Hermes Ramirez III, MD [address] [place] [address] PCP - General FAMILY PRACTICE 06/20/17 documented as of this encounter
--- OUTSIDE RECORDS SUMMARY | 2024-03-20 12:11 | XMS_ITS | Encounter Summary ---
Author Organization [facility] Address [address] [place] [address]. [place], [place] [address] [place] [address] Care Team Providers Care Card Room Manager Name Role Phone Ashley ZUNIGA MD, Hermes Perez Primary Care [facility] er Encounter Details Date Type Department Care Team (Latest Contact Info) Description 07/23/2013 Abstract [facility] Medical Group , Lazara Lange MD Social History Tobacco Use Types Packs/Day Years Used Date Smoking Tobacco: Never Assessed Comments Unknown Sex and Gender Information Value Date Recorded Sex Assigned at Not on file Legal Sex Female 9:15 PM SPORTS MARKETING COORDINATOR Gender Identity Not on file Sexual Orientation Not on file documented as of this encounter Last Filed Vital Signs Vital Sign Reading Time Taken Comments Blood Pressure 120/80 07/23/2013 11:30 AM CDT Pulse 90 07/23/2013 11:30 AM CDT Temperature - - Respiratory Rate - - Oxygen Saturation - - Inhaled Oxygen Concentration - - Weight 57.6 kg (127 lb) 07/23/2013 11:30 AM CDT Height 157.5 cm (5' 2 ) 07/23/2013 11:29 AM CDT Body Mass Index 23.23 07/23/2013 11:29 AM CDT documented in this encounter Plan of Treatment Not on file documented as of this encounter Procedures Procedure Name Priority Date/Time Associated Diagnosis Comments PATHOLOGY Routine 07/23/2013 12:33 PM CDT documented in this encounter Results * Pathology (07/23/2013 12:33 PM CDT) PATHOLOGY [facility] T O EPIC CONVERSION Comment: Patient Name: RENETTA, MISHA A. Specimen #: [id number] ?? Procedure Date: 07/23/2013 /Age: 07 1980 (Age: 32) Gender: ??F Accessioned: 07/24/2013 Address: [address] [place] [place] [address] ??[id number] Reported: 07/25/2013 ?? Encounter: [id number] Location: [facility] ?? Physician(s): Jayla ESCAMILLA ?SURGICAL PATHOLOGY REPORT Diagnosis: 1. ??ENDOCERVIX, BIOPSY: ? - SCANT SINGLE FRAGMENT OF UNMOORED SQUAMOUS EPITHELIUM WITH HIGH-GRADE ? SQUAMOUS INTRAEPITHELIAL LESION (IFEANYI 3). ? - REMAINING ENDOCERVICAL EPITHELIUM WITH ACUTE AND CHRONIC INFLAMMATION. 2. ??EXOCERVIX, BIOPSY: ? - LOW-GRADE SQUAMOUS INTRAEPITHELIAL LESION (IFEANYI 1) WITH ACUTE AND CHRONIC ? CERVICITIS. ? - p16 STAIN IS NEGATIVE SUPPORTING THE DIAGNOSIS (ALL CONTROLS WERE APPROPRIATE). KONG CYR MD ? Report Electronically Signed ? 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 Gross Description: 1. ??The specimen is labeled endocervical. ??Received in formalin is a 0.9 x 0.2 x 0.1 cm aggregate of mucus and minute white-valadez tissue. ??All in one cassette. 2. The specimen is labeled exocervical. ??Received in formalin are three scanty pieces of white-valadez tissue aggregating 0.3 x 0.1 x 0.1 cm. ??The entire specimen is submitted in one cassette. ?? /[facility] MAYITO Calderón (ASCP) ?? Microscopic Examination: (EXAMINED) 07/23/2013 12:3 3 PM CDT Narrative [facility] TO [facility] CONVERSION - 07/23/2013 12:33 PM CDT [Task Forwarded to jpfeiffer] She had a LGSIL pap smear. 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 She told me that she has had two LEEPs in the past. Do you want to do another LEEP? us Kala EDMOND PATHOLOGY/CYTOLOGY ORDERABLE S Final Result [facility] TO EPIC CONVERSION documented in this encounter Visit Diagnoses Not on filedocumented in this encounter Care Teams Card Room Manager Relationship Specialty Start Date End Date Hermes Ramirez III, MD [address] [place] [id number] PCP - General FAMILY PRACTICE 06/20/17 documented as of this encounter
--- OUTSIDE RECORDS SUMMARY | 2024-03-20 12:11 | XMS_ITS | Encounter Summary ---
Author Organization [facility] Address [address] [place] [address]. [place] [address] [place] [address] Care Team Providers Care New Car Sales Manager Name Role Phone Ashley ZUNIGA MD, Hermes Perez Primary Care Provid er Encounter Details Date Type Department Care Team (Late st Contact Info) Description 11/19/2010 Abstract [facility] Medical Group Priority Care - Doreen Lopez [address] [place] [address] Social History Tobacco Use Types Packs/Day Years Used Date Smoking Tobacco: Never Assessed Comments Unknown Sex and Gender Information Value Date Recorded Sex Assigned at Not on file Legal Sex Female 9:15 PM PRODUCT MANAGER FINANCIAL SERVICES Gender Identity Not on file Sexual Orientation Not on file documented as of this encounter Last Filed Vital Signs Vital Sign Reading Time Taken Comments Blood Pressure 106/74 11/19/2010 6:17 PM CDT Pulse 80 11/19/2010 6:17 PM CDT Temperature - - Respiratory Rate - - Oxygen Saturation - - Inhaled Oxygen Concentration - - Weight 54.9 kg (121 lb) 11/19/2010 6:17 PM CDT Height - - Body Mass Index 22.13 11/13/2010 10:20 AM CDT documented in this encounter Plan of Treatment Not on file documented as of this encounter Visit Diagnoses Not on filedocumented in this encounter Care Teams New Car Sales Manager Relationship Specialty Start Date End Date Hermes Ramirez III, MD [address] [facility] [address] [place] [address] PCP - General FAMILY PRACTICE 06/20/17 documented as of this encounter
--- OUTSIDE RECORDS SUMMARY | 2024-03-20 12:12 | XMS_ITS | Encounter Summary ---
Author Organization [facility] Address [address] [place] [address]. [place] [address] [place] [address] Care Team Providers Care Computer Assistant Name Role Phone Ashley ZUNIGA MD, Hermes Perez Primary Care Provid er Encounter Details Date Type Department Care Team (Late st Contact Info) Description 04/25/2001 Abstract [facility] [address] [place] [address] , Lazara Lange MD Social History Tobacco Use Types Packs/Day Years Used Date Smoking Tobacco: Never Assessed Comments Unknown Sex and Gender Information Value Date Recorded Sex Assigned at Not on file Legal Sex Female 9:15 PM HAND SIGN WRITER Gender Identity Not on file Sexual [...] Rule Out 03/30/2020 03/30/2020 03/30/2020 9:29 PM HAND SIGN WRITER COVID-19 Rule Out 03/30/2020 03/30/2020 03/31/2020 12:28 PM HAND SIGN WRITER documented as of this encounter Care Teams Computer Assistant Relationship Specialty Start Date End Date Hermes Ramirez III, MD [address] [facility] [address] [place] [address] PCP - General FAMILY PRACTICE 06/20/17 documented as of this encounter
--- OUTSIDE RECORDS SUMMARY | 2024-03-20 12:12 | XMS_ITS | Encounter Summary ---
Author Organization [facility] Address [address] [place] [address]. [place] [address] [place] [address] Care Team Providers Care Chief Inspector Name Role Phone Ashley ZUNIGA MD, Hermes Perez Primary Care Provid er Encounter Details Date Type Department Care Team (Late st Contact Info) Description 05/07/2003 Abstract [facility] [address] [place] [address] , Generic ConversionMD Social History Tobacco Use Types Packs/Day Years Used Date Smoking Tobacco: Never Assessed Comments Unknown Sex and Gender Information Value Date Recorded Sex Assigned at Not on file Legal Sex Female 9:15 PM METAL FURRER Gender Identity Not on file Sexual Orientation [...] Rule Out 03/30/2020 03/30/2020 03/30/2020 9:29 PM METAL FURRER COVID-19 Rule Out 03/30/2020 03/30/2020 03/31/2020 12:28 PM METAL FURRER documented as of this encounter Care Teams Chief Inspector Relationship Specialty Start Date End Date Hermes Ramirez III, MD [address] [place] [address] PCP - General FAMILY PRACTICE 06/20/17 documented as of this encounter
--- OUTSIDE RECORDS SUMMARY | 2024-03-20 12:12 | XMS_ITS | Encounter Summary ---
Author Organization [facility] Address [address] [place] [address]. [place] [address] [place] [address] Care Team Providers Care Knitting Machine Operator Name Role Phone Ashley ZUNIGA MD, Hermes Perez Primary Care Provid er Encounter Details Date Type Department Care Team (Late st Contact Info) Description 08/05/2000 Abstract [facility] [address] [place] [address] , Generic ConversionMD Social History Tobacco Use Types Packs/Day Years Used Date Smoking Tobacco: Never Assessed Comments Unknown Sex and Gender Information Value Date Recorded Sex Assigned at Not on file Legal Sex Female 9:15 PM VENDING MACHINE REPAIRER Gender Identity Not on file Sexual [...] Rule Out 03/30/2020 03/30/2020 03/30/2020 9:29 PM VENDING MACHINE REPAIRER COVID-19 Rule Out 03/30/2020 03/30/2020 03/31/2020 12:28 PM VENDING MACHINE REPAIRER documented as of this encounter Care Teams Knitting Machine Operator Relationship Specialty Start Date End Date Hermes Ramirez III, MD [address] [place] [address] PCP - General FAMILY PRACTICE 06/20/17 documented as of this encounter
--- OUTSIDE RECORDS SUMMARY | 2024-03-20 12:12 | XMS_ITS | Encounter Summary ---
Author Organization [facility] Address [address] [place] [address]. [place], [place] [address] [place] [address] Care Team Providers Care Fitness And Wellness Manager Name Role Phone Unavailable Primary Care Provider Unavailabl e Encounter Details Date Type Department Care Team (Late st Contact Info) Description 04/04/2001 Abstract [facility] [address] [facility] [place] [address] , Lazara Lange MD Social History Tobacco Use Types Packs/Day Years Used Date Smoking Tobacco: Never Assessed Comments Unknown Sex and Gender Information Value Date Recorded Sex Assigned at Not on file Legal Sex Female 9:15 PM CUT OFF [employer] Gender Identity Not on file Sexual Orientation Not on file documented as of this encounter Plan of Treatment Not on file documented as of this encounter Visit Diagnoses Not on filedocumented in this encounter
--- OUTSIDE RECORDS SUMMARY | 2024-03-20 12:12 | XMS_ITS | Encounter Summary ---
Author Organization [facility] Address [address] [place] [address]. [place] [address] [place] [address] Care Team Providers Care Manager Loss Prevention Name Role Phone Ashley ZUNIGA MD, Hermes Perez Primary Care Provid er Encounter Details Date Type Department Care Team (Late st Contact Info) Description 08/09/2000 Abstract [facility] [address] [place] [address] , Lazara Lange MD Social History Tobacco Use Types Packs/Day Years Used Date Smoking Tobacco: Never Assessed Comments Unknown Sex and Gender Information Value Date Recorded Sex Assigned at Not on file Legal Sex Female 9:15 PM NOZZLE CEMENT SPRAYER HELPER Gender Identity Not on file Sexual [...] Rule Out 03/30/2020 03/30/2020 03/30/2020 9:29 PM NOZZLE CEMENT SPRAYER HELPER COVID-19 Rule Out 03/30/2020 03/30/2020 03/31/2020 12:28 PM NOZZLE CEMENT SPRAYER HELPER documented as of this encounter Care Teams Manager Loss Prevention Relationship Specialty Start Date End Date Hermes Ramirez III, MD [address] [facility] [address] [place] [address] PCP - General FAMILY PRACTICE 06/20/17 documented as of this encounter
--- OUTSIDE RECORDS SUMMARY | 2024-03-20 12:12 | XMS_ITS | Encounter Summary ---
Author Organization [facility] Address [address] [place] [address]. [place] [address] [place] [address] Care Team Providers Care Manager Of Sustainability Name Role Phone Ashley ZUNIGA MD, Hermes Perez Primary Care Provid er Encounter Details Date Type Department Care Team (Late st Contact Info) Description 09/22/2000 Abstract [facility] [address] [place] [address] , Lazara Lange MD Social History Tobacco Use Types Packs/Day Years Used Date Smoking Tobacco: Never Assessed Comments Unknown Sex and Gender Information Value Date Recorded Sex Assigned at Not on file Legal Sex Female 9:15 PM RIPENING ROOM ATTENDANT Gender Identity Not on file Sexual [...] Rule Out 03/30/2020 03/30/2020 03/30/2020 9:29 PM RIPENING ROOM ATTENDANT COVID-19 Rule Out 03/30/2020 03/30/2020 03/31/2020 12:28 PM RIPENING ROOM ATTENDANT documented as of this encounter Care Teams Manager Of Sustainability Relationship Specialty Start Date End Date Hermes Ramirez III, MD [address] [facility] [address] [place] [address] PCP - General FAMILY PRACTICE 06/20/17 documented as of this encounter
--- OUTSIDE RECORDS SUMMARY | 2024-03-20 12:12 | XMS_ITS | Encounter Summary ---
Author Organization [facility] Address [address] [place] [address]. [place] [address] [place] [address] Care Team Providers Care Residential Manager Name Role Phone Ashley ZUNIGA MD, Hermes Perez Primary Care Provid er Encounter Details Date Type Department Care Team (Late st Contact Info) Description 08/23/2000 Abstract [facility] [address] [place] [address] , Lazara Lange MD Social History Tobacco Use Types Packs/Day Years Used Date Smoking Tobacco: Never Assessed Comments Unknown Sex and Gender Information Value Date Recorded Sex Assigned at Not on file Legal Sex Female 9:15 PM CNC LATHE MACHINE OPERATOR Gender Identity Not on file [...] Rule Out 03/30/2020 03/30/2020 03/30/2020 9:29 PM CNC LATHE MACHINE OPERATOR COVID-19 Rule Out 03/30/2020 03/30/2020 03/31/2020 12:28 PM CNC LATHE MACHINE OPERATOR documented as of this encounter Care Teams Residential Manager Relationship Specialty Start Date End Date Hermes Ramirez III, MD [address] [facility] [address] [place] [address] PCP - General FAMILY PRACTICE 06/20/17 documented as of this encounter
--- OUTSIDE RECORDS SUMMARY | 2024-03-20 12:12 | XMS_ITS | Encounter Summary ---
Author Organization [facility] Address [address] [place] [address]. [place] [address] [place] [address] Care Team Providers Care Social Worker School Name Role Phone Ashley ZUNIGA MD, Hermes Perez Primary Care Provid er Encounter Details Date Type Department Care Team (Late st Contact Info) Description 06/11/2003 Abstract [facility] [address] [place] [address] , Generic ConversionMD Social History Tobacco Use Types Packs/Day Years Used Date Smoking Tobacco: Never Assessed Comments Unknown Sex and Gender Information Value Date Recorded Sex Assigned at Not on file Legal Sex Female 9:15 PM SPA ASSISTANT MANAGER Gender Identity Not on file Sexual [...] Rule Out 03/30/2020 03/30/2020 03/30/2020 9:29 PM SPA ASSISTANT MANAGER COVID-19 Rule Out 03/30/2020 03/30/2020 03/31/2020 12:28 PM SPA ASSISTANT MANAGER documented as of this encounter Care Teams Social Worker School Relationship Specialty Start Date End Date Hermes Ramirez III, MD [address] [place] [address] PCP - General FAMILY PRACTICE 06/20/17 documented as of this encounter
--- OUTSIDE RECORDS SUMMARY | 2024-03-20 12:12 | XMS_ITS | Encounter Summary ---
Author Organization [facility] Address [address] [place] [address]. [place], [place] [address] [place] [address] Care Team Providers Care Client Technical Professional Name Role Phone Ashley ZUNIGA MD, Hermes Perez Primary Care Provid er Encounter Details Date Type Department Care Team (Late st Contact Info) Description 10/02/2001 Abstract [facility] [address] [place] [address] Kris Vazquez MD [facility] [place] [address] Social History Tobacco Use Types Packs/Day Years Used Date Smoking Tobacco: Never Assessed Comments Unknown Sex and Gender Information Value Date Recorded Sex Assigned at Not on file Legal Sex Female 9:15 PM CART PUSHER Gender Identity Not on file Sexual Orientation [...] Rule Out 03/30/2020 03/30/2020 03/30/2020 9:29 PM CART PUSHER COVID-19 Rule Out 03/30/2020 03/30/2020 03/31/2020 12:28 PM CART PUSHER documented as of this encounter Care Teams Client Technical Professional Relationship Specialty Start Date End Date Hermes Ramirez III, MD [address] [facility] [address] [place] [address] PCP - General FAMILY PRACTICE 06/20/17 documented as of this encounter
--- OUTSIDE RECORDS SUMMARY | 2024-03-20 12:12 | XMS_ITS | Encounter Summary ---
Author Organization [facility] Address [address] [place] [address]. [place], [place] [address] [place] [address] Care Team Providers Care Type Copy Examiner Name Role Phone Ashley ZUNIGA MD, Hermes Perez Primary Care Provid er Encounter Details Date Type Department Care Team (Late st Contact Info) Description 04/11/2001 Abstract [facility] [address] [place], [place] [id number] Bright Lamb MD [address] [place] [address] Social History Tobacco Use Types Packs/Day Years Used Date Smoking Tobacco: Never Assessed Comments Unknown Sex and Gender Information Value Date Recorded Sex Assigned at Not on file Legal Sex Female 9:15 PM PATIENT ASSESSMENT COORDINATOR Gender Identity Not on file Sexual [...] Rule Out 03/30/2020 03/30/2020 03/30/2020 9:29 PM PATIENT ASSESSMENT COORDINATOR COVID-19 Rule Out 03/30/2020 03/30/2020 03/31/2020 12:28 PM PATIENT ASSESSMENT COORDINATOR documented as of this encounter Care Teams Type Copy Examiner Relationship Specialty Start Date End Date Hermes Ramirez III, MD [address] [facility] 105 [place] [id number] PCP - General FAMILY PRACTICE 06/20/17 documented as of this encounter
--- OUTSIDE RECORDS SUMMARY | 2024-03-20 12:12 | XMS_ITS | Encounter Summary ---
Author Organization [facility] Address [address] [place] [address]. [place] [address] [place] [address] Care Team Providers Care Nursing Home Admissions Director Name Role Phone Ashley ZUNIGA MD, Hermes Perez Primary Care Provid er Encounter Details Date Type Department Care Team (Late st Contact Info) Description 04/02/2004 Abstract [facility] [address] [place] [address] , Generic ConversionMD Social History Tobacco Use Types Packs/Day Years Used Date Smoking Tobacco: Never Assessed Comments Unknown Sex and Gender Information Value Date Recorded Sex Assigned at Not on file Legal Sex Female 9:15 PM ROTARY HELPER Gender Identity Not on file Sexual [...] Rule Out 03/30/2020 03/30/2020 03/30/2020 9:29 PM ROTARY HELPER COVID-19 Rule Out 03/30/2020 03/30/2020 03/31/2020 12:28 PM ROTARY HELPER documented as of this encounter Care Teams Nursing Home Admissions Director Relationship Specialty Start Date End Date Hermes Ramirez III, MD [address] [place] [address] [place] [address] PCP - General FAMILY PRACTICE 06/20/17 documented as of this encounter
--- OUTSIDE RECORDS SUMMARY | 2024-03-20 12:12 | XMS_ITS | Encounter Summary ---
Author Organization [facility] Address [address] [place] [address]. [place] [address] [place] [address] Care Team Providers Care Electronic Organ Technician Name Role Phone Ashley ZUNIGA MD, Hermes Perez Primary Care Provid er Encounter Details Date Type Department Care Team (Late st Contact Info) Description 03/10/2003 Abstract [facility] [address] [place] [address] , Generic ConversionMD Social History Tobacco Use Types Packs/Day Years Used Date Smoking Tobacco: Never Assessed Comments Unknown Sex and Gender Information Value Date Recorded Sex Assigned at Not on file Legal Sex Female 9:15 PM DOCUMENTATION LEAD Gender Identity Not on file Sexual [...] Rule Out 03/30/2020 03/30/2020 03/30/2020 9:29 PM DOCUMENTATION LEAD COVID-19 Rule Out 03/30/2020 03/30/2020 03/31/2020 12:28 PM DOCUMENTATION LEAD documented as of this encounter Care Teams Electronic Organ Technician Relationship Specialty Start Date End Date Hermes Ramirez III, MD [address] [place] [address] [place] [address] PCP - General FAMILY PRACTICE 06/20/17 documented as of this encounter
--- OUTSIDE RECORDS SUMMARY | 2024-03-20 12:12 | XMS_ITS | Encounter Summary ---
Author Organization [facility] Address [address] [place] [address]. [place] [address] [place] [address] Care Team Providers Care Freight Car Repairer Name Role Phone Ashley ZUNIGA MD, Hermes Perez Primary Care Provid er Encounter Details Date Type Department Care Team (Late st Contact Info) Description 07/25/2000 Abstract [facility] [address] [place] [address] , Lazara Lange MD Social History Tobacco Use Types Packs/Day Years Used Date Smoking Tobacco: Never Assessed Comments Unknown Sex and Gender Information Value Date Recorded Sex Assigned at Not on file Legal Sex Female 9:15 PM ENTERTAINMENT PRODUCTION PROFESSIONAL Gender Identity Not on file Sexual Orientation [...] Rule Out 03/30/2020 03/30/2020 03/30/2020 9:29 PM ENTERTAINMENT PRODUCTION PROFESSIONAL COVID-19 Rule Out 03/30/2020 03/30/2020 03/31/2020 12:28 PM ENTERTAINMENT PRODUCTION PROFESSIONAL documented as of this encounter Care Teams Freight Car Repairer Relationship Specialty Start Date End Date Hermes Ramirez III, MD [address] [facility] 105 [place] [address] PCP - General FAMILY PRACTICE 06/20/17 documented as of this encounter
--- OUTSIDE RECORDS SUMMARY | 2024-03-20 12:12 | XMS_ITS | Encounter Summary ---
Author Organization [facility] Address [address] [place] [address]. [place], [place] [address] [place] [address] Care Team Providers Care Ferryboat Deckhand Name Role Phone Ashley ZUNIGA MD, Hermes Perez Primary Care Provid er Encounter Details Date Type Department Care Team (Late st Contact Info) Description 01/27/2005 Abstract [facility] [address] [place] [address] Kris Vazquez MD [facility] [place] [address] Social History Tobacco Use Types Packs/Day Years Used Date Smoking Tobacco: Never Assessed Comments Unknown Sex and Gender Information Value Date Recorded Sex Assigned at Not on file Legal Sex Female 9:15 PM THUMB SEWER Gender Identity Not on file Sexual [...] Rule Out 03/30/2020 03/30/2020 03/30/2020 9:29 PM THUMB SEWER COVID-19 Rule Out 03/30/2020 03/30/2020 03/31/2020 12:28 PM THUMB SEWER documented as of this encounter Care Teams Ferryboat Deckhand Relationship Specialty Start Date End Date Herems Ramirez III, MD [address] [facility] 105 [place] [address] PCP - General FAMILY PRACTICE 06/20/17 documented as of this encounter
--- OUTSIDE RECORDS SUMMARY | 2024-03-20 12:12 | XMS_ITS | Encounter Summary ---
Author Organization [facility] Address [address] [place] [address]. [place], [place] [address] [place] [address] Care Team Providers Care Cna Name Role Phone Unavailable Primary Care Provider Unavailabl e Encounter Details Date Type Department Care Team (Late st Contact Info) Description 04/05/2001 Abstract [facility] [address] [facility] [place] [address] , Lazara Lange MD Social History Tobacco Use Types Packs/Day Years Used Date Smoking Tobacco: Never Assessed Comments Unknown Sex and Gender Information Value Date Recorded Sex Assigned at Not on file Legal Sex Female 9:15 PM FINISH GRINDER Gender Identity Not on file Sexual Orientation Not on file documented as of this encounter Plan of Treatment Not on file documented as of this encounter Visit Diagnoses Not on filedocumented in this encounter
--- OUTSIDE RECORDS SUMMARY | 2024-03-20 12:12 | XMS_ITS | Encounter Summary ---
Author Organization [facility] Address [address] [place] [address]. [place] [address] [place] [address] Care Team Providers Care Tier Lift Operator Name Role Phone Ashley ZUNIGA MD, Hermes Perez Primary Care Provid er Encounter Details Date Type Department Care Team (Late st Contact Info) Description 12/12/2003 Abstract [facility] [address] [place] [address] , Lazara Lange MD Social History Tobacco Use Types Packs/Day Years Used Date Smoking Tobacco: Never Assessed Comments Unknown Sex and Gender Information Value Date Recorded Sex Assigned at Not on file Legal Sex Female 9:15 PM SENIOR EDITOR Gender Identity Not on file Sexual Orientation [...] Rule Out 03/30/2020 03/30/2020 03/30/2020 9:29 PM SENIOR EDITOR COVID-19 Rule Out 03/30/2020 03/30/2020 03/31/2020 12:28 PM SENIOR EDITOR documented as of this encounter Care Teams Tier Lift Operator Relationship Specialty Start Date End Date Hermes Ramirez III, MD [address] [facility] 105 [place] [address] PCP - General FAMILY PRACTICE 06/20/17 documented as of this encounter
--- OUTSIDE RECORDS SUMMARY | 2024-03-20 12:13 | XMS_ITS | Encounter Summary ---
Author Organization [facility] Address [address] [place] [address]. [place] [address] [place] [address] Care Team Providers Care Layout Artist Name Role Phone Ashley ZUNIGA MD, Hermes Perez Primary Care Provid er Encounter Details Date Type Department Care Team (Late st Contact Info) Description 06/28/2000 Abstract [facility] [address] [place] [address] Lazara Case MD Social History Tobacco Use Types Packs/Day Years Used Date Smoking Tobacco: Never Assessed Comments Unknown Sex and Gender Information Value Date Recorded Sex Assigned at Not on file Legal Sex Female 9:15 PM SPORTS EQUIPMENT RACKER Gender Identity Not on file Sexual Orientation [...] Rule Out 03/30/2020 03/30/2020 03/30/2020 9:29 PM SPORTS EQUIPMENT RACKER COVID-19 Rule Out 03/30/2020 03/30/2020 03/31/2020 12:28 PM SPORTS EQUIPMENT RACKER documented as of this encounter Care Teams Layout Artist Relationship Specialty Start Date End Date Hermes Ramirez III, MD [address] [facility] 105 [place] [address] PCP - General FAMILY PRACTICE 06/20/17 documented as of this encounter
--- OUTSIDE RECORDS SUMMARY | 2024-03-20 12:13 | XMS_ITS | Encounter Summary ---
Author Organization [facility] Address [address] [place] [address]. [place] [address] [place] [address] Care Team Providers Care Fretted Instrument Maker Hand Name Role Phone Ashley ZUNIGA MD, Hermes Perez Primary Care Provid er Encounter Details Date Type Department Care Team (Late st Contact Info) Description 05/10/1999 Abstract [facility] [address] [place] [address] , Lazara Lange MD Social History Tobacco Use Types Packs/Day Years Used Date Smoking Tobacco: Never Assessed Comments Unknown Sex and Gender Information Value Date Recorded Sex Assigned at Not on file Legal Sex Female 9:15 PM TAX ACCOUNTING MANAGER Gender Identity Not on file Sexual [...] Rule Out 03/30/2020 03/30/2020 03/30/2020 9:29 PM TAX ACCOUNTING MANAGER COVID-19 Rule Out 03/30/2020 03/30/2020 03/31/2020 12:28 PM TAX ACCOUNTING MANAGER documented as of this encounter Care Teams Fretted Instrument Maker Hand Relationship Specialty Start Date End Date Hermes Ramirez III, MD [address] [facility] [place] [address] [place] [address] PCP - General FAMILY PRACTICE 06/20/17 documented as of this encounter
--- OUTSIDE RECORDS SUMMARY | 2024-03-20 12:13 | XMS_ITS | Encounter Summary ---
Author Organization [facility] Address [address] [place] [address]. [place] [address] [place] [address] Care Team Providers Care Sales Clerk Name Role Phone Ashley ZUNIGA MD, Hermes Perez Primary Care Provid er Encounter Details Date Type Department Care Team (Late st Contact Info) Description 05/04/[address] [facility] Conversion [address] [place] [address] , Generic ConversionMD Social History Tobacco Use Types Packs/Day Years Used Date Smoking Tobacco: Never Assessed Comments Unknown Sex and Gender Information Value Date Recorded Sex Assigned at Not on file Legal Sex Female 9:15 PM THEORETICAL PHYSICS TEACHER Gender Identity Not on file Sexual Orientation Not on file documented as of this encounter Plan of Treatment Not on file documented as of this encounter Visit Diagnoses Not on filedocumented in this encounter Care Teams Sales Clerk Relationship Specialty Start Date End Date Hermes Ramirez III, MD [address] [facility] 105 [place] [address] PCP - General FAMILY PRACTICE 06/20/17 documented as of this encounter
--- OUTSIDE RECORDS SUMMARY | 2024-03-20 12:13 | XMS_ITS | Encounter Summary ---
Author Organization [facility] Address [address] [place] [address]. [place] [address] [place] [address] Care Team Providers Care Passenger Solicitor Name Role Phone Ashley ZUNIGA MD, Hermes Perez Primary Care Provid er Encounter Details Date Type Department Care Team (Late st Contact Info) Description 02/16/[address] [facility] [address] [place] [address] , Lazara Lange MD Social History Tobacco Use Types Packs/Day Years Used Date Smoking Tobacco: Never Assessed Comments Unknown Sex and Gender Information Value Date Recorded Sex Assigned at Not on file Legal Sex Female 9:15 PM RELIGIOUS ASSISTANT Gender Identity Not on file Sexual Orientation Not on file documented as of this encounter Plan of Treatment Not on file documented as of this encounter Visit Diagnoses Not on filedocumented in this encounter Care Teams Passenger Solicitor Relationship Specialty Start Date End Date Hermes Ramirez III, MD [address] [facility] 105 [place] [address] PCP - General FAMILY PRACTICE 06/20/17 documented as of this encounter
--- OUTSIDE RECORDS SUMMARY | 2024-03-20 12:13 | XMS_ITS | Encounter Summary ---
Author Organization [facility] Address [address] [place] [address]. [place] [address] [place] [address] Care Team Providers Care Manager Division Name Role Phone Ashley ZUNIGA MD, Hermes Perez Primary Care Provid er Encounter Details Date Type Department Care Team (Late st Contact Info) Description 05/17/1999 Abstract [facility] [address] [place] [address] , Lazara Lange MD Social History Tobacco Use Types Packs/Day Years Used Date Smoking Tobacco: Never Assessed Comments Unknown Sex and Gender Information Value Date Recorded Sex Assigned at Not on file Legal Sex Female 9:15 PM DOCUMENT CONTROL SUPERVISOR Gender Identity Not on file Sexual Orientation Not on file documented as of this encounter Plan of Treatment Not on file documented as of this encounter Visit Diagnoses Not on filedocumented in this encounter Care Teams Manager Division Relationship Specialty Start Date End Date Hermes Ramirez III, MD [address] [facility] 105 [place] [address] PCP - General FAMILY PRACTICE 06/20/17 documented as of this encounter
--- OUTSIDE RECORDS SUMMARY | 2024-03-20 12:13 | XMS_ITS | Encounter Summary ---
Author Organization [facility] Address [address] [place] [address]. [place] [address] [place] [address] Care Team Providers Care Claim Processing Specialist Name Role Phone Ashley ZUNIGA MD, Hermes Perez Primary Care Provid er Encounter Details Date Type Department Care Team (Late st Contact Info) Description 09/16/1998 Abstract [facility] [address] [place] [address] , Lazara Lange MD Social History Tobacco Use Types Packs/Day Years Used Date Smoking Tobacco: Never Assessed Comments Unknown Sex and Gender Information Value Date Recorded Sex Assigned at Not on file Legal Sex Female 9:15 PM BUTCHER ASSISTANT Gender Identity Not on file Sexual Orientation Not on file documented as of this encounter Plan of Treatment Not on file documented as of this encounter Visit Diagnoses Not on filedocumented in this encounter Care Teams Claim Processing Specialist Relationship Specialty Start Date End Date Hermes Ramirez III, MD [address] [facility] 105 [place] [address] PCP - General FAMILY PRACTICE 06/20/17 documented as of this encounter
--- OUTSIDE RECORDS SUMMARY | 2024-03-20 12:13 | XMS_ITS | Encounter Summary ---
Author Organization [facility] Address [address] [place] [address]. [place] [address] [place] [address] Care Team Providers Care Library Specialist Name Role Phone Ashley ZUNIGA MD, Hermes Perez Primary Care Provid er Encounter Details Date Type Department Care Team (Late st Contact Info) Description 06/26/[address] [facility] [address] [place] [address] , Lazara Lange MD Social History Tobacco Use Types Packs/Day Years Used Date Smoking Tobacco: Never Assessed Comments Unknown Sex and Gender Information Value Date Recorded Sex Assigned at Not on file Legal Sex Female 9:15 PM SENIOR MECHANICAL DESIGNER Gender Identity Not on file Sexual [...] Out 03/30/2020 03/30/2020 03/30/2020 9:29 PM SENIOR MECHANICAL DESIGNER COVID-19 Rule Out 03/30/2020 03/30/2020 03/31/2020 12:28 PM SENIOR MECHANICAL DESIGNER documented as of this encounter Care Teams Library Specialist Relationship Specialty Start Date End Date Hermes Ramirez III, MD [address] [facility] 105 [place] [address] PCP - General FAMILY PRACTICE 06/20/17 documented as of this encounter
--- OUTSIDE RECORDS SUMMARY | 2024-03-20 12:13 | XMS_ITS | Encounter Summary ---
Author Organization [facility] Address [address] [place] [address]. [place] [address] [place] [address] Care Team Providers Care Call Manager Name Role Phone Ashley ZUNIGA MD, Hermes Perez Primary Care Provid er Encounter Details Date Type Department Care Team (Late st Contact Info) Description 07/15/1998 Abstract S [facility] [address] [place] [address] , Lazara Lange MD Social History Tobacco Use Types Packs/Day Years Used Date Smoking Tobacco: Never Assessed Comments Unknown Sex and Gender Information Value Date Recorded Sex Assigned at Not on file Legal Sex Female 9:15 PM SLURRY CONTROL OPERATOR HELPER Gender Identity Not on file [...] Rule Out 03/30/2020 03/30/2020 03/30/2020 9:29 PM SLURRY CONTROL OPERATOR HELPER COVID-19 Rule Out 03/30/2020 03/30/2020 03/31/2020 12:28 PM SLURRY CONTROL OPERATOR HELPER documented as of this encounter Care Teams Call Manager Relationship Specialty Start Date End Date Hermes Ramirez III, MD [address] [facility] [address] [place] [address] PCP - General FAMILY PRACTICE 06/20/17 documented as of this encounter
--- OUTSIDE RECORDS SUMMARY | 2024-03-20 12:13 | XMS_ITS | Encounter Summary ---
Author Organization [facility] Address [address] [place] [address]. [place] [address] [place] [address] Care Team Providers Care Laboratory Tester Name Role Phone Ashley ZUNIGA MD, Hermes Perez Primary Care Provid er Encounter Details Date Type Department Care Team (Late st Contact Info) Description 09/07/1999 Abstract [facility] [address] [place] [address] , Lazara Lange MD Social History Tobacco Use Types Packs/Day Years Used Date Smoking Tobacco: Never Assessed Comments Unknown Sex and Gender Information Value Date Recorded Sex Assigned at Not on file Legal Sex Female 9:15 PM REHAB OFFICE COORDINATOR Gender Identity Not on file Sexual Orientation Not on file documented as of this encounter Plan of Treatment Not on file documented as of this encounter Visit Diagnoses Not on filedocumented in this encounter Care Teams Laboratory Tester Relationship Specialty Start Date End Date Hermes Ramirez III, MD [address] [facility] 105 [place] [address] PCP - General FAMILY PRACTICE 06/20/17 documented as of this encounter
--- OUTSIDE RECORDS SUMMARY | 2024-03-20 12:13 | XMS_ITS | Encounter Summary ---
Author Organization [facility] Address [address] [place] [address]. [place] [address] [place] [address] Care Team Providers Care Ruffling Machine Operator Name Role Phone Ashley ZUNIGA MD, Hermes Perez Primary Care Provid er Encounter Details Date Type Department Care Team (Late st Contact Info) Description 02/03/[address] [facility] Conversion [address] [place] [address] , Generic ConversionMD Social History Tobacco Use Types Packs/Day Years Used Date Smoking Tobacco: Never Assessed Comments Unknown Sex and Gender Information Value Date Recorded Sex Assigned at Not on file Legal Sex Female 9:15 PM STEREOTYPE FINISHER Gender Identity Not on file Sexual Orientation Not on file documented as of this encounter Plan of Treatment Not on file documented as of this encounter Visit Diagnoses Not on filedocumented in this encounter Care Teams Ruffling Machine Operator Relationship Specialty Start Date End Date Hermes Ramirez III, MD [address] [facility] 105 [place] [address] PCP - General FAMILY PRACTICE 06/20/17 documented as of this encounter
--- OUTSIDE RECORDS SUMMARY | 2024-03-20 12:13 | XMS_ITS | Encounter Summary ---
Author Organization [facility] Address [address] [place] [address]. [place] [address] [place] [address] Care Team Providers Care Irrigation Tax Assessor Collector Name Role Phone Ashley ZUNIGA MD, Hermes Perez Primary Care Provid er Encounter Details Date Type Department Care Team (Late st Contact Info) Description 03/18/[address] [facility] Conversion [address] [place] [address] , Generic ConversionMD Social History Tobacco Use Types Packs/Day Years Used Date Smoking Tobacco: Never Assessed Comments Unknown Sex and Gender Information Value Date Recorded Sex Assigned at Not on file Legal Sex Female 9:15 PM FACILITIES PAINTER Gender Identity Not on file Sexual Orientation Not on file documented as of this encounter Plan of Treatment Not on file documented as of this encounter Visit Diagnoses Not on filedocumented in this encounter Care Teams Irrigation Tax Assessor Collector Relationship Specialty Start Date End Date Hermes Ramirez III, MD [address] [facility] 105 [place] [address] PCP - General FAMILY PRACTICE 06/20/17 documented as of this encounter
--- OUTSIDE RECORDS SUMMARY | 2024-03-20 12:13 | XMS_ITS | Encounter Summary ---
Author Organization [facility] Address [address] [place] [address]. [place] [address] [place] [address] Care Team Providers Care Voip Network Technician Name Role Phone Ashley ZUNIGA MD, Hermes Perez Primary Care Provid er Encounter Details Date Type Department Care Team (Late st Contact Info) Description 07/10/2000 Abstract [facility] [address] [place] [address] , Lazara Lange MD Social History Tobacco Use Types Packs/Day Years Used Date Smoking Tobacco: Never Assessed Comments Unknown Sex and Gender Information Value Date Recorded Sex Assigned at Not on file Legal Sex Female 9:15 PM INTENSIVE CARE ANAESTHETIST Gender Identity Not on file Sexual Orientation [...] Rule Out 03/30/2020 03/30/2020 03/30/2020 9:29 PM INTENSIVE CARE ANAESTHETIST COVID-19 Rule Out 03/30/2020 03/30/2020 03/31/2020 12:28 PM INTENSIVE CARE ANAESTHETIST documented as of this encounter Care Teams Voip Network Technician Relationship Specialty Start Date End Date Hermes Ramirez III, MD [address] [facility] 105 [place] [address] PCP - General FAMILY PRACTICE 06/20/17 documented as of this encounter
--- OUTSIDE RECORDS SUMMARY | 2024-03-20 12:13 | XMS_ITS | Encounter Summary ---
Author Organization [facility] Address [address] [place] [address]. [place] [address] [place] [address] Care Team Providers Care Snuff Blender Name Role Phone Ashley ZUNIGA MD, Hermes Perez Primary Care Provid er Encounter Details Date Type Department Care Team (Late st Contact Info) Description 01/20/2000 Abstract [facility] [address] [place] [address] , Lazara Lange MD Social History Tobacco Use Types Packs/Day Years Used Date Smoking Tobacco: Never Assessed Comments Unknown Sex and Gender Information Value Date Recorded Sex Assigned at Not on file Legal Sex Female 9:15 PM SLIP COVER CUTTER Gender Identity Not on file Sexual [...] Rule Out 03/30/2020 03/30/2020 03/30/2020 9:29 PM SLIP COVER CUTTER COVID-19 Rule Out 03/30/2020 03/30/2020 03/31/2020 12:28 PM SLIP COVER CUTTER documented as of this encounter Care Teams Snuff Blender Relationship Specialty Start Date End Date Hermes Ramirez III, MD [address] [facility] 105 [place] [address] PCP - General FAMILY PRACTICE 06/20/17 documented as of this encounter
--- OUTSIDE RECORDS SUMMARY | 2024-03-20 12:13 | XMS_ITS | Encounter Summary ---
Author Organization [facility] Address [address] [place] [address]. [place] [address] [place] [address] Care Team Providers Care Statistical Assistant Name Role Phone Ashley ZUNIGA MD, Hermes Perez Primary Care Provid er Encounter Details Date Type Department Care Team (Late st Contact Info) Description 02/03/[address] [facility] [address] [place] [address] , Generic ConversionMD Social History Tobacco Use Types Packs/Day Years Used Date Smoking Tobacco: Never Assessed Comments Unknown Sex and Gender Information Value Date Recorded Sex Assigned at Not on file Legal Sex Female 9:15 PM GERENTOLOGICAL PHYSIOTHERAPIST Gender Identity Not on file Sexual Orientation Not on file documented as of this encounter Plan of Treatment Not on file documented as of this encounter Visit Diagnoses Not on filedocumented in this encounter Care Teams Statistical Assistant Relationship Specialty Start Date End Date Hermes Ramirez III, MD [address] [facility] [address] [place] [address] PCP - General FAMILY PRACTICE 06/20/17 documented as of this encounter
--- OUTSIDE RECORDS SUMMARY | 2024-03-20 12:13 | XMS_ITS | Encounter Summary ---
Author Organization [facility] Address [address] [place] [address]. [place] [address] [place] [address] Care Team Providers Care Detonator Assembler Name Role Phone Ashley ZUNIGA MD, Hermes Perez Primary Care Provid er Encounter Details Date Type Department Care Team (Late st Contact Info) Description 05/04/[address] [facility] [address] [place] [address] , Generic ConversionMD Social History Tobacco Use Types Packs/Day Years Used Date Smoking Tobacco: Never Assessed Comments Unknown Sex and Gender Information Value Date Recorded Sex Assigned at Not on file Legal Sex Female 9:15 PM PROCESSOR GRAIN Gender Identity Not on file Sexual Orientation Not on file documented as of this encounter Plan of Treatment Not on file documented as of this encounter Visit Diagnoses Not on filedocumented in this encounter Care Teams Detonator Assembler Relationship Specialty Start Date End Date Hermes Ramirez III, MD [address] [facility] [address] [place] [address] PCP - General FAMILY PRACTICE 06/20/17 documented as of this encounter
--- OUTSIDE RECORDS SUMMARY | 2024-03-20 12:13 | XMS_ITS | Encounter Summary ---
Author Organization [facility] Address [address] [place] [address]. [place] [address] [place] [address] Care Team Providers Care Cat Tender Name Role Phone Ashley ZUNIGA MD, Hermes Perez Primary Care Provid er Encounter Details Date Type Department Care Team (Late st Contact Info) Description 01/18/2000 Abstract [facility] [address] [place] [address] , Lazara Lange MD Social History Tobacco Use Types Packs/Day Years Used Date Smoking Tobacco: Never Assessed Comments Unknown Sex and Gender Information Value Date Recorded Sex Assigned at Not on file Legal Sex Female 9:15 PM HEAD TENNIS COACH Gender Identity Not on file Sexual Orientation [...] Rule Out 03/30/2020 03/30/2020 03/30/2020 9:29 PM HEAD TENNIS COACH COVID-19 Rule Out 03/30/2020 03/30/2020 03/31/2020 12:28 PM HEAD TENNIS COACH documented as of this encounter Care Teams Cat Tender Relationship Specialty Start Date End Date Hermes Ramirez III, MD [address] [facility] [address] [place] [address] PCP - General FAMILY PRACTICE 06/20/17 documented as of this encounter
--- OUTSIDE RECORDS SUMMARY | 2024-03-20 12:14 | XMS_ITS | Encounter Summary ---
Author Organization [facility] Address [address] [place] [address]. [place] [address] [place] [address] Care Team Providers Care Structural Steel Detailer Name Role Phone Ashley ZUNIGA MD, Hermes Perez Primary Care Provid er Encounter Details Date Type Department Care Team (Late st Contact Info) Description 11/19/[address] [facility] [address] [place] [address] , Generic ConversionMD Social History Tobacco Use Types Packs/Day Years Used Date Smoking Tobacco: Never Assessed Comments Unknown Sex and Gender Information Value Date Recorded Sex Assigned at Not on file Legal Sex Female 9:15 PM DERRICK FOLLOWER Gender Identity Not on file Sexual Orientation Not on file documented as of this encounter Plan of Treatment Not on file documented as of this encounter Visit Diagnoses Not on filedocumented in this encounter Care Teams Structural Steel Detailer Relationship Specialty Start Date End Date Hermes Ramirez III, MD [address] [facility] 105 [place] [address] PCP - General FAMILY PRACTICE 06/20/17 documented as of this encounter
--- OUTSIDE RECORDS SUMMARY | 2024-03-20 12:14 | XMS_ITS | Encounter Summary ---
Author Organization [facility] Address [address] [place] [address]. [place] [address] [place] [address] Care Team Providers Care Pool Attendant Name Role Phone Ashley ZUNIGA MD, Hermes Perez Primary Care Provid er Encounter Details Date Type Department Care Team (Late st Contact Info) Description 08/22/[address] [facility] [address] [place] [address] , Generic ConversionMD Social History Tobacco Use Types Packs/Day Years Used Date Smoking Tobacco: Never Assessed Comments Unknown Sex and Gender Information Value Date Recorded Sex Assigned at Not on file Legal Sex Female 9:15 PM HVAC SERVICE MANAGER Gender Identity Not on file Sexual Orientation Not on file documented as of this encounter Plan of Treatment Not on file documented as of this encounter Visit Diagnoses Not on filedocumented in this encounter Care Teams Pool Attendant Relationship Specialty Start Date End Date Hermes Ramirez III, MD [address] [facility] [address] [place] [address] PCP - General FAMILY PRACTICE 06/20/17 documented as of this encounter
--- OUTSIDE RECORDS SUMMARY | 2024-03-20 12:14 | XMS_ITS | Encounter Summary ---
Author Organization [facility] Address [address] [place] [address]. [place] [address] [place] [address] Care Team Providers Care Relocation Services Specialist Name Role Phone Ashley ZUNIGA MD, Hermes Perez Primary Care Provid er Encounter Details Date Type Department Care Team (Late st Contact Info) Description 06/06/[address] [facility] [address] [place] [address] , Generic ConversionMD Social History Tobacco Use Types Packs/Day Years Used Date Smoking Tobacco: Never Assessed Comments Unknown Sex and Gender Information Value Date Recorded Sex Assigned at Not on file Legal Sex Female 9:15 PM SHELLFISH PROCESSING LABORER Gender Identity Not on file Sexual Orientation Not on file documented as of this encounter Plan of Treatment Not on file documented as of this encounter Visit Diagnoses Not on filedocumented in this encounter Care Teams Relocation Services Specialist Relationship Specialty Start Date End Date Hermes Ramirez III, MD [address] [facility] [address] [place] [address] PCP - General FAMILY PRACTICE 06/20/17 documented as of this encounter
--- OUTSIDE RECORDS SUMMARY | 2024-03-20 12:14 | XMS_ITS | Encounter Summary ---
Author Organization [facility] Address [address] [place] [address]. [place] [address] [place] [address] Care Team Providers Care Car Repairman Name Role Phone Ashley ZUNIGA MD, Hermes Perez Primary Care Provid er Encounter Details Date Type Department Care Team (Late st Contact Info) Description 08/22/[address] [facility] [address] [place] [address] , Generic ConversionMD Social History Tobacco Use Types Packs/Day Years Used Date Smoking Tobacco: Never Assessed Comments Unknown Sex and Gender Information Value Date Recorded Sex Assigned at Not on file Legal Sex Female 9:15 PM PRODUCTION HAND Gender Identity Not on file Sexual Orientation Not on file documented as of this encounter Plan of Treatment Not on file documented as of this encounter Visit Diagnoses Not on filedocumented in this encounter Care Teams Car Repairman Relationship Specialty Start Date End Date Hermes Ramirez III, MD [address] [facility] [address] [place] [address] PCP - General FAMILY PRACTICE 06/20/17 documented as of this encounter
--- OUTSIDE RECORDS SUMMARY | 2024-03-20 12:14 | XMS_ITS | Encounter Summary ---
Author Organization [facility] Address [address] [place] [address]. [place] [address] [place] [address] Care Team Providers Care Signalman Name Role Phone Ashley ZUNIGA MD, Hermes Perez Primary Care Provid er Encounter Details Date Type Department Care Team (Late st Contact Info) Description 11/19/[address] [facility] [address] [place] [address] , Generic ConversionMD Social History Tobacco Use Types Packs/Day Years Used Date Smoking Tobacco: Never Assessed Comments Unknown Sex and Gender Information Value Date Recorded Sex Assigned at Not on file Legal Sex Female 9:15 PM STACKER DRIVER Gender Identity Not on file Sexual Orientation Not on file documented as of this encounter Plan of Treatment Not on file documented as of this encounter Visit Diagnoses Not on filedocumented in this encounter Care Teams Signalman Relationship Specialty Start Date End Date Hermes Ramirez III, MD [address] [facility] [address] [place] [address] PCP - General FAMILY PRACTICE 06/20/17 documented as of this encounter
--- OUTSIDE RECORDS SUMMARY | 2024-03-20 12:14 | XMS_ITS | Encounter Summary ---
Author Organization [facility] Address [address] [place] [address]. [place] [address] [place] [address] Care Team Providers Care Cash Management Specialist Name Role Phone Ashley ZUNIGA MD, Hermes Perez Primary Care Provid er Encounter Details Date Type Department Care Team (Late st Contact Info) Description 12/19/[address] [facility] [address] [place] [address] , Generic ConversionMD Social History Tobacco Use Types Packs/Day Years Used Date Smoking Tobacco: Never Assessed Comments Unknown Sex and Gender Information Value Date Recorded Sex Assigned at Not on file Legal Sex Female 9:15 PM SIDE BOSS Gender Identity Not on file Sexual Orientation Not on file documented as of this encounter Plan of Treatment Not on file documented as of this encounter Visit Diagnoses Not on filedocumented in this encounter Care Teams Cash Management Specialist Relationship Specialty Start Date End Date Hermes Ramirez III, MD [address] [facility] [address] [place] [address] PCP - General FAMILY PRACTICE 06/20/17 documented as of this encounter
--- OUTSIDE RECORDS SUMMARY | 2024-03-20 12:14 | XMS_ITS | Encounter Summary ---
Author Organization [facility] Address [address] [place] [address]. [place] [address] [place] [address] Care Team Providers Care Director Of Teenage Activities Name Role Phone Ashley ZUNIGA MD, Hermes Perez Primary Care Provid er Encounter Details Date Type Department Care Team (Late st Contact Info) Description 12/19/[address] [facility] [address] [place] [address] , Generic ConversionMD Social History Tobacco Use Types Packs/Day Years Used Date Smoking Tobacco: Never Assessed Comments Unknown Sex and Gender Information Value Date Recorded Sex Assigned at Not on file Legal Sex Female 9:15 PM LOAN APPROVER Gender Identity Not on file Sexual Orientation Not on file documented as of this encounter Plan of Treatment Not on file documented as of this encounter Visit Diagnoses Not on filedocumented in this encounter Care Teams Director Of Teenage Activities Relationship Specialty Start Date End Date Hermes Ramirez III, MD [address] [facility] [address] [place] [address] PCP - General FAMILY PRACTICE 06/20/17 documented as of this encounter
--- OUTSIDE RECORDS SUMMARY | 2024-03-20 12:14 | XMS_ITS | Encounter Summary ---
Author Organization [facility] Address [address] [place] [address]. [place] [address] [place] [address] Care Team Providers Care Electronic Video Games Servicer Name Role Phone Ashley ZUNIGA MD, Hermes Perez Primary Care Provid er Encounter Details Date Type Department Care Team (Late st Contact Info) Description 09/30/[address] 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
--- OUTSIDE RECORDS SUMMARY | 2024-03-20 12:14 | XMS_ITS | Encounter Summary ---
Author Organization [facility] Address [address] [place] [address]. [place] [address] [place] [address] Care Team Providers Care Wafer Fab Operator Name Role Phone Ashley ZUNIGA MD, Hermes Perez Primary Care Provid er Encounter Details Date Type Department Care Team (Late st Contact Info) Description 06/02/[address] [facility] [address] [place] [address] , Generic ConversionMD Social History Tobacco Use Types Packs/Day Years Used Date Smoking Tobacco: Never Assessed Comments Unknown Sex and Gender Information Value Date Recorded Sex Assigned at Not on file Legal Sex Female 9:15 PM LANDSCAPE MAINTENANCE INTERNSHIP Gender Identity Not on file Sexual Orientation Not on file documented as of this encounter Plan of Treatment Not on file documented as of this encounter Visit Diagnoses Not on filedocumented in this encounter Care Teams Wafer Fab Operator Relationship Specialty Start Date End Date Hermes Ramirez III, MD [address] [facility] [address] [place] [address] PCP - General FAMILY PRACTICE 06/20/17 documented as of this encounter
--- OUTSIDE RECORDS SUMMARY | 2024-03-20 12:14 | XMS_ITS | Encounter Summary ---
Author Organization [facility] Address [address] [place] [address]. [place] [address] [place] [address] Care Team Providers Care Fish Frog Or Oyster Farmer Name Role Phone Ashley ZUNIGA MD, Hermes Perez Primary Care Provid er Encounter Details Date Type Department Care Team (Late st Contact Info) Description 06/02/[address] [facility] [address] [place] [address] , Generic ConversionMD Social History Tobacco Use Types Packs/Day Years Used Date Smoking Tobacco: Never Assessed Comments Unknown Sex and Gender Information Value Date Recorded Sex Assigned at Not on file Legal Sex Female 9:15 PM SUGAR SAMPLER Gender Identity Not on file Sexual Orientation Not on file documented as of this encounter Plan of Treatment Not on file documented as of this encounter Visit Diagnoses Not on filedocumented in this encounter Care Teams Fish Frog Or Oyster Farmer Relationship Specialty Start Date End Date Hermes Ramirez III, MD [address] [facility] [address] [place] [address] PCP - General FAMILY PRACTICE 06/20/17 documented as of this encounter
--- OUTSIDE RECORDS SUMMARY | 2024-03-20 12:14 | XMS_ITS | Encounter Summary ---
Author Organization [facility] Address [address] [place] [address]. [place] [address] [place] [address] Care Team Providers Care Tank Inspector Name Role Phone Ashley ZUNIGA MD, Hermes Perez Primary Care Provid er Encounter Details Date Type Department Care Team (Late st Contact Info) Description 09/30/[address] [facility] [address] [place] [address] , Generic ConversionMD Social History Tobacco Use Types Packs/Day Years Used Date Smoking Tobacco: Never Assessed Comments Unknown Sex and Gender Information Value Date Recorded Sex Assigned at Not on file Legal Sex Female 9:15 PM ADJUNCT HISTORY INSTRUCTOR Gender Identity Not on file Sexual Orientation Not on file documented as of this encounter Plan of Treatment Not on file documented as of this encounter Visit Diagnoses Not on filedocumented in this encounter Care Teams Tank Inspector Relationship Specialty Start Date End Date Hermes Ramirez III, MD [address] [facility] [address] [place] [address] PCP - General FAMILY PRACTICE 06/20/17 documented as of this encounter
--- OUTSIDE RECORDS SUMMARY | 2024-03-20 12:14 | XMS_ITS | Encounter Summary ---
Author Organization [facility] Address [address] [place] [address]. [place] [address] [place] [address] Care Team Providers Care Communications Equipment Installer Name Role Phone Ashley ZUNIGA MD, Hermes Perez Primary Care Provid er Encounter Details Date Type Department Care Team (Late st Contact Info) Description 03/10/[address] 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
--- OUTSIDE RECORDS SUMMARY | 2024-03-20 12:14 | XMS_ITS | Encounter Summary ---
Author Organization [facility] Address [address] [place] [address]. [place] [address] [place] [address] Care Team Providers Care Marketing Administrator Name Role Phone Ashley ZUNIGA MD, Hermes Perez Primary Care Provid er Encounter Details Date Type Department Care Team (Late st Contact Info) Description 03/10/[address] [facility] [address] [place] [address] , Generic ConversionMD Social History Tobacco Use Types Packs/Day Years Used Date Smoking Tobacco: Never Assessed Comments Unknown Sex and Gender Information Value Date Recorded Sex Assigned at Not on file Legal Sex Female 9:15 PM BRACELET MAKER NOVELTY Gender Identity Not on file Sexual Orientation Not on file documented as of this encounter Plan of Treatment Not on file documented as of this encounter Visit Diagnoses Not on filedocumented in this encounter Care Teams Marketing Administrator Relationship Specialty Start Date End Date Hermes Ramirez III, MD [address] [facility] [address] [place] [address] PCP - General FAMILY PRACTICE 06/20/17 documented as of this encounter
--- OUTSIDE RECORDS SUMMARY | 2024-03-20 12:14 | XMS_ITS | Encounter Summary ---
Author Organization [facility] Address [address] [place] [address]. [place] [address] [place] [address] Care Team Providers Care Vocational Childcare Teacher Name Role Phone Ashley ZUNIGA MD, Hermes Perez Primary Care Provid er Encounter Details Date Type Department Care Team (Late st Contact Info) Description 06/06/[address] [facility] [address] [place] [address] , Generic ConversionMD Social History Tobacco Use Types Packs/Day Years Used Date Smoking Tobacco: Never Assessed Comments Unknown Sex and Gender Information Value Date Recorded Sex Assigned at Not on file Legal Sex Female 9:15 PM SIMPLEX OPERATOR Gender Identity Not on file Sexual Orientation Not on file documented as of this encounter Plan of Treatment Not on file documented as of this encounter Visit Diagnoses Not on filedocumented in this encounter Care Teams Vocational Childcare Teacher Relationship Specialty Start Date End Date Hermes Ramirez III, MD [address] [facility] [address] [place] [address] PCP - General FAMILY PRACTICE 06/20/17 documented as of this encounter
--- OUTSIDE RECORDS SUMMARY | 2024-03-20 12:15 | XMS_ITS | Encounter Summary ---
Author Organization [facility] Address [address] [place] [address]. [place] [address] [place] [address] Care Team Providers Care Lead Nuclear Medicine Technologist Name Role Phone Ashley ZUNIGA MD, Hermes Perez Primary Care Provid er Encounter Details Date Type Department Care Team (Late st Contact Info) Description 10/12/1996 Abstract [facility] [address] [place] [address] , Generic ConversionMD Social History Tobacco Use Types Packs/Day Years Used Date Smoking Tobacco: Never Assessed Comments Unknown Sex and Gender Information Value Date Recorded Sex Assigned at Not on file Legal Sex Female 9:15 PM PRISON CLASSIFICATION COUNSELOR Gender Identity Not on file Sexual [...] Rule Out 03/30/2020 03/30/2020 03/30/2020 9:29 PM PRISON CLASSIFICATION COUNSELOR COVID-19 Rule Out 03/30/2020 03/30/2020 03/31/2020 12:28 PM PRISON CLASSIFICATION COUNSELOR documented as of this encounter Care Teams Lead Nuclear Medicine Technologist Relationship Specialty Start Date End Date Hermes Ramirez III, MD [address] [facility] [address] [place] [address] PCP - General FAMILY PRACTICE 06/20/17 documented as of this encounter
--- OUTSIDE RECORDS SUMMARY | 2024-03-20 12:15 | XMS_ITS | Encounter Summary ---
Author Organization [facility] Address [address] [place] [address]. [place] [address] [place] [address] Care Team Providers Care Lawn Specialist Name Role Phone Ashley ZUNIGA MD, Hermes Perez Primary Care Provid er Encounter Details Date Type Department Care Team (Late st Contact Info) Description 11/05/1996 Abstract Replaced by [facility] [address] [place] [address] , Lazara Lange MD Social History Tobacco Use Types Packs/Day Years Used Date Smoking Tobacco: Never Assessed Comments Unknown Sex and Gender Information Value Date Recorded Sex Assigned at Not on file Legal Sex Female 9:15 PM PLAN COORDINATOR Gender Identity Not on file Sexual [...] Rule Out 03/30/2020 03/30/2020 03/30/2020 9:29 PM PLAN COORDINATOR COVID-19 Rule Out 03/30/2020 03/30/2020 03/31/2020 12:28 PM PLAN COORDINATOR documented as of this encounter Care Teams Lawn Specialist Relationship Specialty Start Date End Date Hermes Ramirez III, MD [address] [facility] [address] [place] [address] PCP - General FAMILY PRACTICE 06/20/17 documented as of this encounter
--- OUTSIDE RECORDS SUMMARY | 2024-03-20 14:04 | XMS_ITS | Encounter Summary ---
Author Organization [facility] Address [address] [place] [address] Phone Care Team Providers Care Onion Topper Name Role Phone Hermes Ramirez MD Primary Care Provider + [phone] Encounter Details Date Type Department Care Team (Late st Contact Info) Description 12/08/2021 Telephone [facility] [address] [place] [address] Mimi Cox, MARKETING EXECUTIVE, ENCAPSULATOR [address] [place] [address] Social History Tobacco Use Types Packs/Day Years Used Date Smoking Tobacco: Every Day Cigarettes 0.3 10 Smokeless Tobacco: Never Alcohol Use Standard Drinks/Week Comments No 0 (1 standard drink = 0.6 oz pur e alcohol) PHQ-2 Answer Date Recorded Total Score - Questions 1-9 0 11/18 Sexually Active Control Partners Comments Yes Male Comments No Sex and Gender Information Value Date Recorded Sex Assigned at Not on file Legal Sex Female 7:35 PM CDT Gender Identity Not on file Sexual Orientation Not on file COVID-19 Exposure Response Date Recorded In the last 10 days, have yo u been in contact with someone who was confirmed or suspected to have Coronavirus/COVID-19? No / Unsure 12/06/2021 1:22 PM CDT documented as of this encounter Miscellaneous Notes * Telephone Encounter - Freida Junior, ADVERTISING SOLICITOR - 12/08/2021 1:47 PM CDT Per ASTRONAUT MISSION SPECIALIST Mimi Cox reviewed pt ear culture results received from [facility]. Pt can come intooffice every other day to have ketoconazole placed in ear (depending on how it takes) Science Editor spoke with pt and she would like clotrimazole drops sent to [place] and she will use goodrx. RX sent appt r/s for recheck. Document sent to scan. * Telephone Encounter - Shaniqua Jama RN - 12/08/2021 11:02 AM CDT Patient lvm requesting substitute for expensive ear drops, please call to discuss. documented in this encounter Plan of Treatment Not on file documented as of this encounter Visit Diagnoses Not on filedocumented in this encounter Additional Health Concerns Assessment Noted Time PHQ-9 Depression Total Score: 0 01/21/20 21 2:00 PM CDT documented as of this encounter Care Teams Onion Topper Relationship Specialty Start Date End Date Hermes Ramirez MD [address] [facility] [address] [place] [address] PCP - General Family Medicine 05/09/18 documented as of this encounter
--- OUTSIDE RECORDS SUMMARY | 2024-03-20 14:04 | XMS_ITS | Clinical Summary ---
Author Organization [facility] Address [address] [place] [address] Phone Care Team Providers Care Junior Manufacturing Engineer Name Role Phone Hermes Ramirez MD Primary Care Provider [phone] [phone] Allergies Active Allergy Reactions Criticality Noted Date Comments Aspirin Anaphylaxis High 01/17/2016 counteracts immunosuppressment Codeine Itching High 01/17/2016 Erythromycin Other (see Comments) High 01/17/2016 Counteracts immunosuppressants Gentamicin Other (see Comments) High 04/23/2020 Medication interaction Medication interaction Nsaids Other (see Comments) 10/13/2021 Ketorolac Tromethamine Other (see Comments) High 01/17/2016 Immunosuppressants Medications gabapentin (NEURONTIN) 300 MG Capsule TAKE ONE CAPSULE AT BEDTIME 1 Active famotidine (PEPCID) 20 MG Tablet Take 20 mg by mouth. Active Metoprolol Succinate 25 MG Capsule ER 24 Hour Sprinkle Take 25 mg by mouth. 1 Active albuterol 108 (90 Base) MCG/ACT Aerosol Solution INHALE ONE PUFF BY MOUTH EVERY 4 HOURS NEEDED FOR wheezing 2 Active aspirin EC 81 MG Tablet Delayed Response Take 81 mg by mouth. 2 Active Vit-Fe Fumarate-FA ( Plus) 27-1 MG Tablet Take 1 Tablet by mouth daily. Active promethazine (PHENERGAN) 25 MG Tablet 2 Active Envarsus XR 1 MG TABLET SR 24 HR 2 Active Topiramate 50 MG Tablet TAKE ONE TABLET TWICE DAILY 2 Active tretinoin (RETIN-A) 0.05 % Cream 1 application topical every night at bedtime 2 Active venlafaxine (EFFEXOR-XR) 37.5 MG CAPSULE SR 24 HR take 1 capsule daily along with a 75mg capsule for a total of 112.5mg 2 Active venlafaxine (EFFEXOR-XR) 75 MG CAPSULE SR 24 HR take1 capsule daily along with a 37.5mg capule to equal 112.5mg daily. best if taken with food, swallow whole 2 Active amLODIPine (NORVASC) 10 MG Tablet Take 1 Tablet by mouth daily. 2 Active LORazepam (ATIVAN) 0.5 MG Tablet Take 0.5 mg by mouth. 2 Active traZODone (DESYREL) 100 MG Tablet TAKE ONE TABLET AT BEDTIME 2 Active Butalbital-APAP -Caff-Cod (Fioricet/Codei ne) 06-728-43-30 MG Capsule Take by mouth. 2 Active Butalbital-APAP -Caffeine 50-300-40 MG Capsule Take 1 Capsule by mouth every 4 hours as needed. 2 Active cefUROXime (CEFTIN) 500 MG Tablet TAKE ONE TABLET TWICE DAILY UNTIL GONE 2 Active metoprolol tartrate (LOPRESSOR) 25 MG Tablet Take 25 mg by mouth 2 times daily. 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 Chronic otitis externa of left ear 04/30/2018 Migraine without aura and wi thout status migrainosus, not intractable 03/27/2018 Ingrown fingernail 02/19/2018 Retained myringotomy tube in left ear 01/17/2018 Genital condyloma, female 01/09/2018 Anemia, unspecified 05/04/2012 Liver replaced by transplant 01/04/2012 Family History Medical History Relation Name Comments No Known Problems Father Diabetes Mother Liver Cancer Mother Relation Name Status Comments Father Mother Social History Tobacco Use Types Packs/Day Years Used Date Smoking Tobacco: Every Day Cigarettes 0.3 10 Smokeless Tobacco: Never Tobacco Cessation:Ready to Q uit: No; Counseling Given: Yes Alcohol Use Standard Drinks/Week Comments No 0 (1 standard drink = 0.6 oz pur e alcohol) PHQ-2 Answer Date Recorded Total Score - Questions 1-9 0 09/1 11/2021 Sexually Active Control Partners Comments Yes Male Comments No Sex and Gender Information Value Date Recorded Sex Assigned at Not on file Legal Sex Female 7:35 PM CDT Gender Identity Not on file Sexual Orientation Not on file Last Filed Vital Signs Vital Sign Reading Time Taken Comments Blood Pressure 130/89 09/14/2018 12:10 PM CDT Pulse 90 12/06/2021 1:35 PM CDT Temperature 36.6 ??C (97.9 ??F) 09/14/2018 11:38 AM C DT Respiratory Rate 18 09/14/2018 12:10 PM CDT Oxygen Saturation 98% 12/06/2021 1:35 PM CDT Inhaled Oxygen Concentration - - Weight 78.5 kg (173 lb) 12/06/2021 1:35 PM CDT Height 157.5 cm (5' 2 ) 10/13/2021 11:05 AM CDT Body Mass Index 31.64 10/13/2021 11:05 AM CDT Plan of Treatment Health Maintenance Due Date Last Done Comments Hepatitis C Virus (HCV) Screening 1980 SARS-COV-2 Immunization (#1) 10/04/1987 Pneumococcal Immunization Combined (1 of 2 - PCV) 2001 HPV/Cotest 2012 Hepatitis B Immunization (3 of 3 - 19+ 3-dose series) 04/11/2018 11/10/2017, 10/09/2017 Discussion re Starting/Frequency of Mammograms 2022 Influenza Immunization (#1) 2023 Cervical Cancer Screening (CCS) 06/20/2025 Pap Smear 06/20/2025 06/20/2022 Respiratory Syncytial Virus (RSV) Immunization (Adult) (1 - 1-dose 75+ series) 2057 DTaP/Tdap/Td Immunization Discontinued 2021, 05/10/2017, 03/20/2017, Additional history exists TdaP Immunization Completed 10/18/2021, , 03/20/2017, Additional history exists Meningococcal Immunization (ACWY) Aged Out No longer eligible based on patient's age to complete this topic Rotavirus Immunization Aged Out No lo nger eligible based on patient's age to complete this topic Insurance MEDICAID [place] [facility] Care Teams Junior Manufacturing Engineer Relationship Specialty Start Date End Date Hermes Ramirez MD [address] [address] PCP - General Family Medicine 05/09/18
--- OUTSIDE RECORDS SUMMARY | 2024-03-20 14:05 | XMS_ITS | Encounter Summary ---
Author Organization [facility] Address [address] [place] [address] Phone Care Team Providers Care Civil Engineering Project Manager Name Role Phone Hermes Ramirez MD Primary Care Provider [phone] [phone] Reason for Visit * Reason Comments Wax in Ear Encounter Details Date Type Department Care Team (Late st Contact Info) Description 12/06/2021 1:15 PM CDT Office Visit [facility] [address] [place] [address] Mimi Cox N, TAPER MACHINE, POWER SUPPLY ENGINEER [address] [place] [address] ETD (Eustachian tube dysfunction), bilateral (Primary Dx); Conductive hearing loss, bilateral; Otorrhea of both ears Discharge Disposition: Discharged to home or Selfcare Social History Tobacco Use Types Packs/Day Years [...] Sign Reading Time Taken Comments Blood Pressure - - Pulse 90 12/06/2021 1:35 PM CDT Temperature - - Respiratory Rate - - Oxygen Saturation 98% 12/06/2021 1:35 PM CDT Inhaled Oxygen Concentration - - Weight 78.5 kg (173 lb) 12/06/2021 1:35 PM CDT Height - - Body Mass Index 31.64 10/13/2021 11:05 AM CDT documented in this encounter Patient Instructions * Patient Instructions* Freida Junior CMA - 12/06/2021 1:15 PM CDT Patient/family member/caregiver verbalized understanding of patient instructions from today's visit. After your visit you may receive an e-mail from a company called [employer]. This is an anonymous survey of approximately 16 questions that let us know how we did today. We value your feedback, as we want to know how we are doing and what we can do to improve your experience and serve you better. Thank you. documented in this encounter Progress Notes * Mimi Cox, MIGUELINA, ELLEN - 12/06/2021 1:15 PM CDT Patient: Elsa Browne Age: 41 y.o. : 1980 Encounter Dept: [facility] Encounter Date: 12/06/2021 IMPRESSION: Right sided otorrhea. Otomycosis. Bilateral eustachian tube dysfunction, status post tube. PLAN: I am going to have the patient utilize clotrimazole 1% solution three drops to each ear b.i.d. for seven days and I will see her back at that point. Then we will make some decisions as to whether or not consideration needs to be made for those tympanostomy tubes. Patient is in full agreement with the current plan of care. LEVEL OF SERVICE: [id number] HISTORY OF PRESENT ILLNESS: Elsa Browne is a 41-year-old female who was here today for reevaluation of her ears. She has bilateral otorrhea that has been cultured out and positive for fungus. However, I do not have access to that result. It was obtained in [place]. At the last appointment I debrided her ears and put in ketoconazole. She reports that the right ear has drained a lot since I utilized the ketoconazole. She feels that her hearing is down in both ears. She has a history of tympanostomy tubes that were placed by Dr. Alicea back in September. REVIEW OF SYSTEMS: CONSTITUTIONAL: No fever, chills or night sweats. No weight change. HENT: As per HPI. PHYSICAL EXAM: CONSTITUTIONAL: Shows a healthy active female patient who is responding appropriately. Vital signs are per the EMR product. HEAD: Normocephalic and midline. No lesions noted. Symmetrical facial appearance. EYES: Pupils are equal, round, and reactive to light and accommodation. Extraocular eye motions areintact. Sclerae are clear and nonicteric. Conjunctivae without significant erythema or eye discharge. EARS: Are noted to have tympanostomy tube that appear to be open but she has otorrhea coming from the barrel of both tubes. NOSE: With anterior rhinoscopy, no purulence, polyps or foreign bodies bilaterally. ORAL CAVITY: Tongue is midline and mobile. Soft palate rises easily and symmetrically. Oral mucosa without lesions. Posterior pharynx without abnormalities. Lips without lesions or abnormalities. NECK: Soft and supple with normal range of motion. No anterior or posterior cervical lymphadenopathy. No nuchal rigidity. No palpable neck masses. The thyroid is palpated without asymmetry or palpable thyroid nodules. TYMPANOGRAM/AUDIOGRAM: Audiogram was completed today. She is noted to have a bilateral hearing lossthat is predominantly conductive in nature. SRT is 25 on the right and 20 on the left with 100% speech discrimination. Tympanogram on the left would suggest a nonfunctioning tympanostomy tube. The tympanostomy tube on the right is flat. Volume is noted to be at 1.8. Mimi Cox DNP, JAVA TECH LEAD-BC/sdt Vitals, Current Meds & Allergies: Vitals: 12/06/21 1335 Pulse: 90 SpO2: 98% Weight: 173 lb (78.5 kg) Body surface area is 1.85 meters squared. Body mass index is 31.64 kg/m??. Outpatient Encounter Medications as of 12/06/2021 Medication Sig Dispense Refill ??? albuterol 108 (90 Base) MCG/ACT Aerosol Solution INHALE ONE PUFF BY MOUTH EVERY 4 HOURS NEEDED FOR wheezing ??? amLODIPine (NORVASC) 10 MG Tablet Take 1 Tablet by mouth daily. ??? aspirin EC 81 MG Tablet Delayed Response Take 81 mg by mouth. ??? Vuiyunvrbv-VWZJ-Ferj-Cod (Fioricet/Codeine) 88-425-15-30 MG Capsule Take by mouth. ??? Ezjulmuwsu-JKQF-Bvwvyfpj 50-300-40 MG Capsule Take 1 Capsule by mouth every 4 hours as needed. ??? cefUROXime (CEFTIN) 500 MG Tablet TAKE ONE TABLET TWICE DAILY UNTIL GONE ??? clotrimazole ([facility] Clotrimazole) 1 % Solution Place 3 drops to each ear twice daily for 7 days. 15 mL 0 ??? Envarsus XR 1 MG TABLET SR 24 HR ??? famotidine (PEPCID) 20 MG Tablet Take 20 mg by mouth. ??? gabapentin (NEURONTIN) 300 MG Capsule TAKE ONE CAPSULE AT BEDTIME ??? LORazepam (ATIVAN) 0.5 MG Tablet Take 0.5 mg by mouth. ??? Metoprolol Succinate 25 MG Capsule ER 24 Hour Sprinkle Take 25 mg by mouth. ??? metoprolol tartrate (LOPRESSOR) 25 MG Tablet Take 25 mg by mouth 2 times daily. ??? Vit-Fe Fumarate-FA ( Plus) 27-1 MG Tablet Take 1 Tablet by mouth daily. ??? promethazine (PHENERGAN) 25 MG Tablet ??? Topiramate 50 MG Tablet TAKE ONE TABLET TWICE DAILY ??? traZODone (DESYREL) 100 MG Tablet TAKE ONE TABLET AT BEDTIME ??? tretinoin (RETIN-A) 0.05 % Cream 1 application topical every night at bedtime ??? venlafaxine (EFFEXOR-XR) 37.5 MG CAPSULE SR 24 HR take 1 capsule daily along with a 75mg capsule for a total of 112.5mg ??? venlafaxine (EFFEXOR-XR) 75 MG CAPSULE SR 24 HR take1 capsule daily along with a 37.5mg capule to equal 112.5mg daily. best if taken with food, swallow whole No facility-administered encounter medications on file as of 12/06/2021. Allergies Allergen Reactions ??? Aspirin Anaphylaxis counteracts immunosuppressment ??? Codeine Itching ??? Erythromycin Other (see Comments) Counteracts immunosuppressants ??? Gentamicin Other (see Comments) Medication interaction Medication interaction ??? Toradol [Ketorolac Tromethamine] Other (see Comments) Immunosuppressants ??? Nsaids Other (see Comments) PMH/SgH/FH/SH: Past Medical History Positives Diagnosis Date ??? GERD (gastroesophageal reflux disease) ??? Liver transplant recipient (HCC) 1992 ??? Migraine ??? Smoking 1/2 pack a day or less Past Surgical History: Procedure Laterality Date ??? SECTION, LOW TRANSVERSE times 2 ??? CHOLECYSTECTOMY, OPEN ??? APPENDECTOMY ??? BREAST LUMPECTOMY 1998 ??? CERVICAL CONIZATION ??? CONDYLOMA SURGERY N/A 01/10/2018 Procedure: LASER ABLATION CONDYLOMA GENITAL AREA (#[id number]); Surgeon: Umesh Washington MD; Location: [facility] OR; Service: Obstetrics Gynecology ??? ENDOMETRIAL ABLATION ??? FINGER NAIL SURGERY Right 02/21/2018 Procedure: RIGHT LONG FINGER NAIL BED PARTIAL ABLATION; Surgeon: Johnson Hernandez MD; Location: [facility]; Service: Orthopaedic ??? FINGER NAIL SURGERY Right 09/14/2018 Procedure: RIGHT THUMB ANDLONG FINGER PARTIAL NAILBED ABLATION; Surgeon: Johnson Hernandez MD; Location: [facility]; Service: Orthopaedic ??? INGUINAL HERNIA REPAIR Bilateral ??? LIVER TRANSPLANT 1992 Family History Problem Relation Age of Onset ??? Liver Cancer Mother ??? Diabetes Mother ??? No Known Problems Father Social History Socioeconomic History ??? Marital status: Tobacco Use ??? Smoking status: Current Every Day Smoker Packs/day: 0.25 Years: 10.00 Pack years: 2.50 ??? Smokeless tobacco: Never Used Vaping Use ??? Vaping Use: Never used Substance and Sexual Activity ??? Alcohol use: No ??? Drug use: No ??? Sexual activity: Yes Partners: Male Family Status: Family Status Relation Name Status ??? Mother ??? Father documented in this encounter Plan of Treatment Not on file documented as of this encounter Visit Diagnoses Diagnosis ETD (Eustachian tube dysfunction), bilateral- Primary Conductive hearing loss, bilateral Otorrhea of both ears Otorrhea, unspecified documented in this encounter Additional Health Concerns Assessment Noted Time PHQ-9 Depression Total Score: 0 01/21/20 2:00 PM CDT documented as of this encounter Care Teams Civil Engineering Project Manager Relationship Specialty Start Date End Date Hermes Ramirez MD [address] [address] PCP - General Family Medicine 05/09/18 documented as of this encounter
--- OUTSIDE RECORDS SUMMARY | 2024-03-20 14:05 | XMS_ITS | Encounter Summary ---
Author Organization [employer] Care Team Providers Care Repair Cameraman Name Role Phone Hermes Ramirez MD Primary Care Provider [phone] Encounter Details Date Type Department Care Team (Latest Contact Info) Description 10/13/2021 Travel Social History Tobacco Use Types Packs/Day Years Used Date Smoking Tobacco: Every Day Cigarettes 0.3 10 Smokeless Tobacco: Never Alcohol Use Standard Drinks/Week Comments No 0 (1 standard drink = 0.6 oz pur e alcohol) PHQ-2 Answer Date Recorded Total Score - Questions 1-9 0 09/18 Sexually Active Control Partners Comments Yes Male [...] suspected to have Coronavirus/COVID-19? No / Unsure 10/13/2021 11:00 AM CDT documented as of this encounter Plan of Treatment Not on file documented as of this encounter Visit Diagnoses Not on filedocumented in this encounter Additional Health Concerns Assessment Noted Time PHQ-9 Depression Total Score: 0 01/21/20 21 2:00 PM CDT documented as of this encounter Care Teams Repair Cameraman Relationship Specialty Start Date End Date Hermes Ramirez MD [address] [address] PCP - General Family Medicine 05/09/18 documented as of this encounter
--- OUTSIDE RECORDS SUMMARY | 2024-03-20 14:05 | XMS_ITS | Encounter Summary ---
Author Organization [facility] Address [address] [place] [address] Phone Care Team Providers Care Aerial Crop Duster Name Role Phone Hermes Ramirez MD Primary Care Provider [phone] Encounter Details Date Type Department Care Team (Late st Contact Info) Description 11/29/2021 Telephone [facility] [address] [place] [address] Mimi Cox N, HAND QUILTER, MOLDER INFLATED BALL [address] [place] [address] Social History Tobacco Use Types [...] Miscellaneous Notes * Telephone Encounter - Freida Junior CMA - 11/30/2021 8:44 AM CDT Cupola Patcher Helper scheduled pt for f/u visit. * Telephone Encounter - Shaniqua Jama RN - 11/29/2021 9:32 AM CDT Patient called to report mal ear pain, fungal drainage x2 wks rt>lt. Please call to discuss. documented in this encounter Plan of Treatment Not on file documented as of this encounter Visit Diagnoses Not on filedocumented in this encounter Additional Health Concerns Assessment Noted Time PHQ-9 Depression Total Score: 0 01/21/20 21 2:00 PM CDT documented as of this encounter Care Teams Aerial Crop Duster Relationship Specialty Start Date End Date Hermes Ramirez MD [address] [address] PCP - General Family Medicine 05/09/18 documented as of this encounter
--- OUTSIDE RECORDS SUMMARY | 2024-03-20 14:05 | XMS_ITS | Encounter Summary ---
Author Organization [employer] Care Team Providers Care Resident Doctor Name Role Phone Hermes Ramirez MD Primary Care Provider + [phone] Encounter Details Date Type Department Care Team (Latest Contact Info) Description 07/29/2021 Travel Social History Tobacco Use Types Packs/Day Years Used Date Smoking Tobacco: Every Day Cigarettes 0.3 10 Smokeless Tobacco: Never Alcohol Use Standard Drinks/Week Comments No 0 (1 standard drink = 0.6 oz pur e alcohol) PHQ-2 Answer Date Recorded Total Score - Questions 1-9 0 07/18 Sexually Active Control Partners Comments Yes Male [...] suspected to have Coronavirus/COVID-19? No / Unsure 07/29/2021 1:31 PM CDT documented as of this encounter Plan of Treatment Not on file documented as of this encounter Visit Diagnoses Not on filedocumented in this encounter Additional Health Concerns Assessment Noted Time PHQ-9 Depression Total Score: 0 01/21/20 21 2:00 PM CDT documented as of this encounter Care Teams Resident Doctor Relationship Specialty Start Date End Date Hermes Ramirez MD [address] [address] PCP - General Family Medicine 05/09/18 documented as of this encounter
--- OUTSIDE RECORDS SUMMARY | 2024-03-20 14:05 | XMS_ITS | Encounter Summary ---
Author Organization [facility] Address [address] [place] [address] Phone Care Team Providers Care Cement Kiln Operator Name Role Phone Hermes Ramirez MD Primary Care Provider +1 [phone] Reason for Visit * Reason Comments Ear Fullness Encounter Details Date Type Department Care Team (Late st Contact Info) Description 10/13/2021 11:00 AM CDT Office Visit [facility] [address] [place] [address] Kris Alicea MD [address] [place] [address] Bilateral otitis media with effusion (Primary Dx) Discharge Disposition: Discharged to home or Selfcare [...] Taken Comments Blood Pressure - - Pulse 87 10/13/2021 11:05 AM CDT Temperature - - Respiratory Rate - - Oxygen Saturation 99% 10/13/2021 11: 05 AM CDT Inhaled Oxygen Concentration - - Weight 76.1 kg (167 lb 12.8 oz) 022 11:05 AM CDT Height 157.5 cm (5' 2 ) 10/13/2021 11:0 5 AM CDT Body Mass Index 30.69 10/13/2021 11:05 AM CDT documented in this encounter Patient Instructions * Patient Instructions* Maura Pedroza LPN - 10/13/2021 11:00 AM CDT Patient/family member/caregiver verbalized understanding of patient instructions from today's visit. After your visit you may receive an e-mail from a company called [employer]. This is an anonymous survey of approximately 16 questions that let us know how we did today. We value your feedback, as we want to know how we are doing and what we can do to improve your experience and serve you better. Thank you. documented in this encounter H&P Notes * Kris Alicea MD - 10/13/2021 11:00 AM CDT Patient: Elsa Browne Age: 41 y.o. : 1980 Encounter Dept: [facility] Encounter Date: 10/13/2021 ASSESSMENT: Bilateral otitis media with effusion. PLAN: Elsa???s external ears appear healthy today. Any question of fungal otitis externa has now resolved. She has somewhat difficult to examine ears given the opacity of her drums, but because of her symptoms we did proceed with bilateral myringotomy. There was in fact fluid noted in both ears today. Ventilation tubes were placed in both sides, and she did note an improvement in her symptoms following that. I would like her to use Ciprodex drops for the next several days to help clear up anypersistent inflammatory response in the middle ear space. She will follow up again in six months for reevaluation or sooner should there be any persistent complaints. HISTORY OF PRESENT ILLNESS: Elsa Browne is a 41-year-old female patient of Dr. Hermes Ramirez referred by Mimi Cox for evaluation of her ears. She notes that she has a history of previous otitis media with effusion for which she had undergone ventilation tube insertion several years ago in [place]. The tubes ended up being removed by Dr. Ochoa. She notes that over the last several months she has had persistent hearing loss and fullness in her ears. The right side seems to be worse than the left. She has had intermittent otorrhea predominately on the right side. She had been treated for presumptive fungal otitis externa without much improvement. She denies significant tinnitus or vertigo. She does have an underlying history of renal and liver transplant and is on chronic immunosuppression. She has not had recent audiometric testing. REVIEW OF SYSTEMS: CONSTITUTIONAL: No fever or chills. No fatigue. No diaphoresis. No irritability. No unusual weight change. No activity change. No appetite change. HEENT: No eye redness or itching. No eye pain. No visual disturbance. No photophobia. RESPIRATORY: No chest tightness. CARDIOVASCULAR: No chest pain or palpitations. No leg edema. GASTROINTESTINAL: No abdominal distention or abdominal pain. No blood in the stool. No nausea, vomiting or diarrhea. GENITOURINARY: No flank pain. No dysuria. NEUROLOGICAL: Positive for headache. HEMATOLOGICAL: No easy bleeding or easy bruising. PSYCHIATRIC: Positive for anxiety and depression. SKIN: No skin rash or pallor. ALLERGY/IMMUNOLOGY: No food allergies. Not immunocompromised. PHYSICAL EXAMINATION: GENERAL APPEARANCE: Well-developed, well-nourished. Alert. Orientation to time, place, and person. EYES: Pupils are equal and reactive to light. Extraocular motion full. ENT: Voice: Normal. HEAD/FACIAL: No scars, masses, or lesions seen. Facial symmetry and strength are normal. No sinus tenderness. No salivary gland abnormalities. EARS: Under binocular microscopy, her left ear canal was cleared of soft cerumen. Tympanic membraneis intact. Drum is somewhat thickened and opaque in appearance with questionable fluid filling her middle ear space. Similarly on the right side there was soft cerumen which was suctioned from her ear canal and off of the surface of her drum. Her drum is thickened and opaque in appearance with questionable fluid in her middle ear. NOSE: External inspection reveals no scars, lesions, or masses by inspection. No major deformation. ENDONASAL: ANTERIOR RHINOSCOPY: Straight septum, normal turbinates. Normal mucosa. LIPS, DENTITION, GINGIVA, GUMS: Intact dentition. Gingiva and lips are normal. ORAL CAVITY/OROPHARYNX: Oral mucosa, palate, tongue, tonsils, posterior pharynx, and pharyngeal camacho normal in color and symmetric. HYPOPHARYNX / LARYNX: INDIRECT LARYNGOSCOPY: Mirror exam shows false cords, true cords, and epiglottis are normal. Normalmobility of the vocal cords. INDIRECT NASOPHARYNGOSCOPY: Mirror exam shows mucosa, adenoids, posterior choana, and eustachian tubes are normal. NECK: Symmetry and overall appearance are normal. No palpable lymph nodes. Normal laryngeal crepitus. No parotid gland abnormalities. THYROID EXAMINATION: Normal in size and consistency. No nodules. HEAD AND NECK NEUROLOGIC EXAMINATION: No evidence of agitation or anxiety. Mood and affect are normal. Patient is oriented to time, person, and place. Cranial nerves: Cranial nerve I - olfaction grossly intact. Cranial nerve II - general visual acuity intact bilaterally. Cranial nerves III, IV, andVI - extraocular motion normal. Cranial nerve V - sensory testing three divisions of trigeminal nerve intact. Cranial nerve VII - facial function normal bilaterally. Cranial nerve VIII - see audio and tuning forks. Cranial nerve IX - intact sensation of the posterior oropharynx. Cranial nerve X - vocal fold function normal. Cranial nerve XI - trapezius muscle and SCM mobile. Cranial nerve XII - tongue mobility symmetric. PROCEDURE: Bilateral myringotomy with ventilation tube insertion. Under the operating microscope, each tympanic membrane was anesthetized with topical phenol. A radial incision was made in the anterior inferior quadrant of each tympanic membrane. Small serous effusions were evacuated from both sides. A beveled Gonzalez tube was inserted through each myringotomy site. She tolerated the procedure well. Kris Alicea MD/[facility] Vitals, Current Meds & Allergies: Vitals: 10/13/21 1105 Pulse: 87 SpO2: 99% Weight: 167 lb 12.8 oz (76.1 kg) Height: 5' 2 (1.575 m) Body surface area is 1.82 meters squared. Body mass index is 30.69 kg/m??. Outpatient Encounter Medications as of 10/13/2021 Medication Sig Dispense Refill ??? albuterol 108 (90 Base) MCG/ACT Aerosol Solution INHALE ONE PUFF BY MOUTH EVERY 4 HOURS NEEDED FOR wheezing ??? amLODIPine (NORVASC) 10 MG Tablet Take 1 Tablet by mouth daily. ??? [DISCONTINUED] amLODIPine (NORVASC) 10 MG Tablet Take 10 mg by mouth daily. ??? aspirin EC 81 MG Tablet Delayed Response Take 81 mg by mouth. ??? [DISCONTINUED] kevdbeumew-utremhfiknmub-mcouabxh (FIORICET, ESGIC) 50-325-40 MG Tablet TAKE 1-2TABLETS BY MOUTH EVERY 8 HOURS NEEDED FOR HEADACHE ??? ciprofloxacin-dexamethasone (CIPRODEX) 0.3-0.1 % Suspension Place 3 Drops in both ears 3 times daily for 3 days. 7.5 mL 0 ??? [DISCONTINUED] clobetasol (Temovate) 0.05 % Cream Apply thin layer to affected area twice dailyfor 5 days. 15 g 0 ??? [DISCONTINUED] clotrimazole (LOTRIMIN) 1 % Cream Apply 2 times daily. Apply to affected area twice daily until resolved. 14 g 0 ??? clotrimazole-betamethasone (LOTRISONE) 1-0.05 % Cream Apply sparingly to affected area twice daily for 5 days. 45 g 0 ??? Envarsus XR 1 MG TABLET SR 24 HR ??? famotidine (PEPCID) 20 MG Tablet Take 20 mg by mouth. ??? gabapentin (NEURONTIN) 300 MG Capsule TAKE ONE CAPSULE AT BEDTIME ??? LORazepam (ATIVAN) 0.5 MG Tablet Take 0.5 mg by mouth. ??? [DISCONTINUED] LORazepam (ATIVAN) 0.5 MG Tablet TAKE ONE TABLET DAILY NEEDED FOR ANXIETY ??? Metoprolol Succinate 25 MG Capsule ER 24 Hour Sprinkle Take 25 mg by mouth. ??? [DISCONTINUED] metoprolol tartrate (LOPRESSOR) 25 MG Tablet Take 25 mg by mouth 2 times daily. ??? [DISCONTINUED] mycophenolate (CELLCEPT) 250 MG Capsule ??? Vit-Fe Fumarate-FA ( Plus) 27-1 MG Tablet Take 1 Tablet by mouth daily. ??? promethazine (PHENERGAN) 25 MG Tablet ??? Topiramate 50 MG Tablet TAKE ONE TABLET TWICE DAILY ??? traZODone (DESYREL) 100 MG Tablet TAKE ONE TABLET AT BEDTIME ??? [DISCONTINUED] traZODone (DESYREL) 50 MG Tablet TAKE ONE TABLET AT BEDTIME [...] facility-administered encounter medications on file as of 10/13/2021. Allergies Allergen Reactions ??? Aspirin Anaphylaxis counteracts [...] 01/10/2018 Procedure: LASER ABLATION CONDYLOMA GENITAL AREA (#[id number]); Surgeon: Umesh Washington MD; Location: [facility] OR; Service: Obstetrics Gynecology ??? ENDOMETRIAL ABLATION ??? FINGER NAIL SURGERY Right 02/21/2018 Procedure: RIGHT LONG FINGER NAIL BED PARTIAL ABLATION; Surgeon: Johnson Hernandez MD; Location: [facility]; Service: Orthopaedic ??? FINGER NAIL SURGERY Right 09/14/2018 Procedure: RIGHT THUMB ANDLONG FINGER PARTIAL NAILBED ABLATION; Surgeon: Johnson Hernandez MD; Location: [facility]; Service: Orthopaedic ??? INGUINAL HERNIA REPAIR Bilateral [...] Type Priority Associated Diagnoses Orde r Schedule CREATE EARDRUM OPENING,LOCAL ANESTH Procedures Routine Bilateral otitis media with effusion Ordered: 10/13/2021 documented as of this encounter Visit Diagnoses Diagnosis Bilateral otitis media with effusion- Primary Nonsuppurative otitis media, not specified as acute or chronic documented in this encounter Additional Health Concerns Assessment Noted Time PHQ-9 Depression Total Score: 0 01/21/20 21 2:00 PM CDT documented as of this encounter Care Teams Cement Kiln Operator Relationship Specialty Start Date End Date Hermes Ramirez MD [address] [address] PCP - General Family Medicine 05/09/18 documented as of this encounter
--- OUTSIDE RECORDS SUMMARY | 2024-03-20 14:05 | XMS_ITS | Encounter Summary ---
Author Organization [facility] Address [address] [place] [address] Phone Care Team Providers Care Full Stack Engineer Name Role Phone Hermes Ramirez MD Primary Care Provider [phone] [phone] Reason for Visit * Reason Comments Ear Pain Ear Drainage Encounter Details Date Type Department Care Team (Late st Contact Info) Description 12/02/2021 8:45 AM CDT Office Visit [facility] [address] [place] [address] Mimi Cox N, BEHAVIORAL HEALTH WORKER, GRAPPLER [address] [place] [address] Otomycosis of both ears (Primary Dx); ETD (Eustachian tube dysfunction), bilateral Discharge Disposition: Discharged to home or Selfcare [...] to have Coronavirus/COVID-19? No / Unsure 12/02/2021 9:01 AM CDT documented as of this encounter Last Filed Vital Signs Vital Sign Reading Time Taken Comments Blood Pressure - - Pulse 83 12/02/2021 9:37 AM CDT Temperature - - Respiratory Rate - - Oxygen Saturation 99% 12/02/2021 9:37 AM CDT Inhaled Oxygen Concentration - - Weight 77.1 kg (170 lb) 12/02/2021 9:37 AM CDT Height - - Body Mass Index 31.09 10/13/2021 11:05 AM CDT documented in this encounter Patient Instructions * Patient Instructions* Freida Junior CMA - 12/02/2021 8:45 AM CDT Patient/family member/caregiver verbalized understanding of patient instructions from today's visit. After your visit you may receive an e-mail from a company called [employer]. This is an anonymous survey of approximately 16 questions that let us know how we did today. We value your feedback, as we want to know how we are doing and what we can do to improve your experience and serve you better. Thank you. documented in this encounter Progress Notes * Mimi Cox, MIGUELINA, ELLEN - 12/02/2021 8:45 AM CDT Patient: Elsa Browne Age: 41 y.o. : 1980 Encounter Dept: [facility] Encounter Date: 12/02/2021 IMPRESSION: Bilateral otomycosis. Bilateral eustachian tube dysfunction, status post tubes. PLAN: Ketoconazole was placed in both ears rather than an oral antifungal because of her immune suppressant drugs. She tells me that her immune suppressant drug would have to be reduced in order for her to be able to be placed on an oral antiviral. I will see her back on Monday, and we will see how she is doing. She agreed with the current plan of care. LEVEL OF SERVICE: [id number] - 25, [id number] HISTORY OF PRESENT ILLNESS: Elsa Browne is a 41-year-old female who presents to the office today for evaluation of otorrhea that she has been experiencing for the last two weeks. She had some slight ear drainage before she went to [place]. While she was in [place] she was swimming in the ocean,and the ear drainage has increased. She has been to the emergency room at least twice. The first visit they placed her on Augmentin. There was no improvement, so she went a second time, and she was placed on an additional antibiotic and her cultures grew out fungus. I, however, do not have access to those records. She went to the [facility] emergency room. She describes the otorrhea as being yellow in color from both ears. Her hearing is diminished bilaterally with the right ear being worse than the left. She denies any vertigo but is experiencing some lightheadedness. She has some tinnitus that isintermittent bilaterally. She has had problems with otomycosis in the past. Most recently had bilateral myringotomy performed by Dr. Alicea in September. She has an underlying problem with eczema to her ears. She is on immune suppressant drugs right now because of a renal and liver transplant. REVIEW OF SYSTEMS: CONSTITUTIONAL: No fevers, chills, or night sweats. No weight change. HENT: As per the HPI. PHYSICAL EXAMINATION: CONSTITUTIONAL: Shows a healthy, active female who is responding appropriately. Mood and affect areintact. She is pleasant. Vital signs are per the EMR product. HEAD: Normocephalic and midline. No lesions noted. Symmetrical facial appearance. EYES: Pupils are equal, round, and reactive to light and accommodation. Extraocular eye motions areintact. Sclerae are clear and nonicteric. Conjunctivae without significant erythema or eye discharge. EARS: Ears are noted to have otorrhea collected around the tympanostomy tube and to the tympanic membrane. Both tympanostomy tubes are patent. There is no significant erythema or otorrhea to the external auditory canals. NOSE: With anterior rhinoscopy, no purulence, polyps, or foreign bodies bilaterally. ORAL CAVITY: Tongue is midline and mobile. Soft palate rises easily and symmetrically. Oral mucosa without lesions. Posterior pharynx without abnormalities. Lips without lesions or abnormalities. NECK: Soft and supple with normal range of motion. No anterior or posterior cervical lymphadenopathy. No nuchal rigidity. No palpable neck masses. The thyroid is palpated without asymmetry or palpable thyroid nodules. BINOCULAR MICROSCOPY: Informed consent was obtained from the patient in order to debride both ears.She was placed in supine position after informed consent was obtained. With suction tip #3 I removed the otorrhea from around the tympanostomy tube and the tympanic membrane. Both tympanostomy tubes appear to be patent. I then instilled ketoconazole in both ears. Patient tolerated debridement. Mimi Cox DNP, EMPLOYMENT ATTORNEY, CONSERVATION OFFICER-BC/[facility] Vitals, Current Meds & Allergies: Vitals: 12/02/21 0937 Pulse: 83 SpO2: 99% Weight: 170 lb (77.1 kg) Body surface area is 1.84 meters squared. Body mass index is 31.09 kg/m??. Outpatient Encounter Medications as of 12/02/2021 Medication Sig Dispense Refill ??? albuterol 108 (90 Base) MCG/ACT Aerosol Solution INHALE ONE PUFF BY MOUTH EVERY 4 HOURS NEEDED FOR wheezing ??? amLODIPine (NORVASC) 10 MG Tablet Take 1 Tablet by mouth daily. ??? [DISCONTINUED] amoxicillin-clavulanate (AUGMENTIN) 875-125 MG Tablet TAKE ONE TABLET BY MOUTH EVERY TWELVE HOURS ??? aspirin EC 81 MG Tablet Delayed Response Take 81 mg by mouth. ??? Ftwzenihhc-YQAV-Chxr-Cod (Fioricet/Codeine) 76-488-21-30 MG Capsule Take by mouth. ??? Ssjlcpgwlo-NYYY-Ltpnpmwu 50-300-40 MG Capsule Take 1 Capsule by mouth every 4 hours as needed. ??? cefUROXime (CEFTIN) 500 MG Tablet TAKE ONE TABLET TWICE DAILY UNTIL GONE ??? [DISCONTINUED] clotrimazole-betamethasone (LOTRISONE) 1-0.05 % Cream Apply sparingly to affected area twice daily for 5 days. 45 g 0 ??? [DISCONTINUED] diphenhydrAMINE HCl (BENADRYL ALLERGY PO) 50 mg by Intramuscular route. ??? Envarsus XR 1 MG TABLET SR [...] facility-administered encounter medications on file as of 12/02/2021. Allergies Allergen Reactions ??? Aspirin Anaphylaxis counteracts [...] 01/10/2018 Procedure: LASER ABLATION CONDYLOMA GENITAL AREA (#[id number]); Surgeon: Umesh Washington MD; Location: [facility] OR; Service: Obstetrics Gynecology ??? ENDOMETRIAL ABLATION ??? FINGER NAIL SURGERY Right 02/21/2018 Procedure: RIGHT LONG FINGER NAIL BED PARTIAL ABLATION; Surgeon: Johnson Hernandez MD; Location: [facility]; Service: Orthopaedic ??? FINGER NAIL SURGERY Right 09/14/2018 Procedure: RIGHT THUMB ANDLONG FINGER PARTIAL NAILBED ABLATION; Surgeon: Johnson Hernandez MD; Location: [facility]; Service: Orthopaedic ??? INGUINAL HERNIA REPAIR Bilateral [...] Type Priority Associated Diagnoses Orde r Schedule BINOCULAR MICROSCOPY SEPARATE PROCEDURE [place] Charge Routine Otomycosis of both ears ETD (Eustachian tube dysfunction), bilateral Ordered: 12/02/2021 documented as of this encounter Visit Diagnoses Diagnosis Otomycosis of both ears- Primary ETD (Eustachian tube dysfunction), bilateral documented in this encounter Additional Health Concerns Assessment Noted Time PHQ-9 Depression Total Score: 0 01/21/20 21 2:00 PM CDT documented as of this encounter Care Teams Full Stack Engineer Relationship Specialty Start Date End Date Hermes Ramirez MD [address] [address] PCP - General Family Medicine 05/09/18 documented as of this encounter
--- OUTSIDE RECORDS SUMMARY | 2024-03-20 14:05 | XMS_ITS | Encounter Summary ---
Author Organization [facility] Address [address] [place] [address] Phone Care Team Providers Care Senior Policy Advisor Name Role Phone Hermes Ramirez MD Primary Care Provider + -[phone] Encounter Details Date Type Department Care Team (Late st Contact Info) Description 08/02/2021 Telephone [facility] [address] [place] [address] Mimi Cox N, GRAPHOTYPE OPERATOR, CUSTOMER RELATIONS REPRESENTATIVE [address] [place] [address] Social History Tobacco Use Types [...] Telephone Encounter - Freida Junior CMA - 08/10/2021 9:16 AM CDT Residential Roofer left message for pt to call our office with update * Telephone Encounter - Freida Junior CMA - 08/02/2021 1:19 PM CDT Residential Roofer left message for pt to phone our office for update on how she is doing with the lotrimin cream. documented in this encounter Plan of Treatment Not on file documented as of this encounter Visit Diagnoses Not on filedocumented in this encounter Additional Health Concerns Assessment Noted Time PHQ-9 Depression Total Score: 0 01/21/20 21 2:00 PM CDT documented as of this encounter Care Teams Senior Policy Advisor Relationship Specialty Start Date End Date Hermes Ramirez MD [address] [facility] [address] [place] [address] PCP - General Family Medicine 05/09/18 documented as of this encounter
--- OUTSIDE RECORDS SUMMARY | 2024-03-20 14:05 | XMS_ITS | Encounter Summary ---
Author Organization [employer] Care Team Providers Care Communications Technologist Name Role Phone Hermes Ramirez MD Primary Care Provider + -[phone] Encounter Details Date Type Department Care Team [...] documented as of this encounter Care Teams Communications Technologist Relationship Specialty Start Date End Date Hermes Ramirez MD [address] [address] PCP - General Family Medicine 05/09/18 documented as of this encounter
--- OUTSIDE RECORDS SUMMARY | 2024-03-20 14:05 | XMS_ITS | Encounter Summary ---
Author Organization [facility] Address [address] [place] [address] Phone Care Team Providers Care Glass Decorator Name Role Phone Hermes Ramirez MD Primary Care Provider +1 [phone] Encounter Details Date Type Department Care Team (Latest Contact Info) Description 12/06/2021 1:15 PM CDT Audiology Tech Visit [facility] [address] [place] [address] Audiology, [place] ETD (Eustachian tube dysfunction), bilateral (Primary Dx); Otomycosis of both ears; Conductive hearing loss of both ears Discharge Disposition: Discharged to [...] PM CDT documented as of this encounter Progress Notes * Karen Pantoja, ASHLEE - 12/06/2021 1:15 PM CDT Pt seen for audio upon order from Danis Cox DNP. Results show conductive hearing loss and flat tympanograms. See report. Pt to f/u with Danis Cox. documented in this encounter Plan of Treatment Not on file documented as of this encounter Procedures Procedure Name Priority Date/Time Associated Diagnosis Comments AUDIOLOGY PROCEDURE Routine 12/06/2021 ETD (Eustachian tube dysfunction), bilateral Otomycosis of both ears Conductive hearing loss of both ears documented in this encounter Results * AUDIOLOGY PROCEDURE (12/06/2021) us Mimi Cox DIE SET UP WORKER, SHELL PLATER GEN ORDERS Final Result documented in this encounter Visit Diagnoses Diagnosis ETD (Eustachian tube dysfunction), bilateral- Primary Otomycosis of both ears Conductive hearing loss of both ears Conductive hearing loss, bilateral documented in this encounter Additional Health Concerns Assessment Noted Time PHQ-9 Depression Total Score: 0 01/21/20 21 2:00 PM CDT documented as of this encounter Care Teams Glass Decorator Relationship Specialty Start Date End Date Hermes Ramirez MD [address] [place] [id number] PCP - General Family Medicine 05/09/18 documented as of this encounter
--- OUTSIDE RECORDS SUMMARY | 2024-03-20 14:05 | XMS_ITS | Encounter Summary ---
Author Organization [facility] Address [address] [place] [address] Phone Care Team Providers Care Line Technician Name Role Phone Hermes Ramirez MD Primary Care Provider + [phone] Encounter Details Date Type Department Care Team (Late st Contact Info) Description 07/29/2021 Telephone [facility] [address] [place] [address] Mimi Cox N, ORDER ENTRY TECHNICIAN, SHOW HOST/HOSTESS [address] [place] [address] Social History Tobacco Use Types [...] encounter Miscellaneous Notes * Telephone Encounter - Rosa Ma CMA - 07/30/2021 3:27 PM CDT Due to insurance coverage, patient has been prescribed Clotrimazole 1%. Patient is to use the Clotrimazole twice daily along with the Temovate 0.05% cream that she already has. Patient is to use bothcreams in equal parts. Please advise patient to continue ofloxacin drops. Elsa will also need a follow up appointment at the end of July or beginning of June with Nurse Kenny for re-evaluation. As well, she is to then follow up with Dr. Alicea as she requested in her lastvisit with Nurse Cox. * Telephone Encounter - Freida Junior CMA - 07/29/2021 3:46 PM CDT Prior auth for lotrisone faxed to [facility] pérez documented in this encounter Plan of Treatment Not on file documented as of this encounter Visit Diagnoses Not on filedocumented in this encounter Additional Health Concerns Assessment Noted Time PHQ-9 Depression Total Score: 0 01/21/20 21 2:00 PM CDT documented as of this encounter Care Teams Line Technician Relationship Specialty Start Date End Date Hermes Ramirez MD [address] [address] PCP - General Family Medicine 05/09/18 documented as of this encounter
--- OUTSIDE RECORDS SUMMARY | 2024-03-20 14:05 | XMS_ITS | Encounter Summary ---
Author Organization [employer] Care Team Providers Care Django Developer Name Role Phone Hermes Ramirez MD Primary Care Provider + [phone] Encounter Details Date Type Department Care Team (Latest Contact Info) Description 12/06/2021 Travel Social History Tobacco Use Types Packs/Day [...] documented as of this encounter Care Teams Django Developer Relationship Specialty Start Date End Date Hermes Ramirez MD [address] [address] PCP - General Family Medicine 05/09/18 documented as of this encounter
--- OUTSIDE RECORDS SUMMARY | 2024-03-20 14:05 | XMS_ITS | Encounter Summary ---
Author Organization [facility] Address [address] [place] [address] Phone Care Team Providers Care Plug Overwrap Machine Tender Name Role Phone Hermes Ramirez MD Primary Care Provider [phone] Reason for Visit * Reason Onset Date Comments Prior Authorization 07/30/2021 Robinson Encounter Details Date Type Department Care Team (Late st Contact Info) Description 07/30/2021 Telephone [facility] Case Management [address] [place] [address] Mimi Cox N, DIRECTOR POST, CARPENTER/LABOR [address] [place] [address] Prior Authorization (Lotrisone) Social History Tobacco Use Types Packs/Day Years [...] encounter Miscellaneous Notes * Telephone Encounter - Vicki Donohue - 07/30/2021 6:11 AM CDT Robinson EDMOND received from [facility]. Patient has BC[employer] Medicaid, which covers as two separate prescriptions: clotrimazole cream 1% betamethasone valerate cream 0.1% (base equivalent) Please consider sending as two prescriptions. Thanks documented in this encounter Plan of Treatment Not on file documented as of this encounter Visit Diagnoses Not on filedocumented in this encounter Additional Health Concerns Assessment Noted Time PHQ-9 Depression Total Score: 0 01/21/20 21 2:00 PM CDT documented as of this encounter Care Teams Plug Overwrap Machine Tender Relationship Specialty Start Date End Date Hermes Ramirez MD [address] [address] PCP - General Family Medicine 05/09/18 documented as of this encounter
--- OUTSIDE RECORDS SUMMARY | 2024-03-20 14:05 | XMS_ITS | Encounter Summary ---
Author Organization [facility] Address [address] [place] [address] Phone Care Team Providers Care Fuel Dock Attendant Name Role Phone Hermes Ramirez MD Primary Care Provider [phone] Reason for Visit * Reason Comments Ear Pain ear fungus Encounter Details Date Type Department Care Team (Late st Contact Info) Description 07/29/2021 1:45 PM CDT Office Visit [facility] [address] [place] [address] Mimi Cox N, FASHION ADVISER, CNC SET UP OPERATOR [address] [place] [address] Chronic eczematous otitis externa of both ears (Primary Dx); Chronic otorrhea, right Discharge Disposition: Discharged to home or Selfcare [...] Taken Comments Blood Pressure - - Pulse 76 07/29/2021 1:52 PM CDT Temperature - - Respiratory Rate - - Oxygen Saturation 99% 07/29/2021 1:52 PM CDT Inhaled Oxygen Concentration - - Weight 76.7 kg (169 lb) 07/29/2021 1:52 PM CDT Height - - Body Mass Index 30.91 01/20/2021 2:40 PM CDT documented in this encounter Patient Instructions * Patient Instructions* Freida Junior CMA - 07/29/2021 1:45 PM CDT Patient/family member/caregiver verbalized understanding of patient instructions from today's visit. After your visit you may receive an e-mail from a company called [email or web address]. This is an anonymous survey of approximately 16 questions that let us know how we did today. We value your feedback, as we want to know how we are doing and what we can do to improve your experience and serve you better. Thank you. documented in this encounter Progress Notes * Mimi Cox APRN, ELLEN - 07/29/2021 1:45 PM CDT Patient: Elsa Browne Age: 40 y.o. : 1980 Encounter Dept: [facility] Encounter Date: 07/29/2021 C: Jessee Jones NP IMPRESSION: Bilateral otitis externa, secondary to eczema. Right sided otorrhea. PLAN: We talked about using the Lotrisone cream twice a day for five days then discontinuing and utilize episodically. I will call the patient on Monday and find out how she is doing with the Lotrisone prescription. Otherwise, we will have her return back to the office with first available surgeon to sit down and discuss possible tympanostomy tubes. Even after I spent time discussing with her thedifference between what she is experiencing now and the reasoning behind tympanostomy tubes, she still insisted on seeing a surgeon to discuss her wanting to have tympanostomy tubes placed. Patient is in full agreement with the current plan of care. I will have the patient utilize ofloxacin otic tothe right ear five drops b.i.d. for five days, and then she can discontinue, but she will continue using the Lotrisone in both ears for a total of five to seven days. [id number] - [id number] [phone] [id number] HISTORY OF PRESENT ILLNESS: Elsa Browne is a 40-year-old female whom I have not seen since January of 2021. She has a history of bilateral otitis externa secondary to eczema. With the last appointment I had her utilize Temovate cream which will take care of the eczema, but she reports once shestops using it it will return. She reports she has been diagnosed with an ear infection since I last saw her. She saw Jessee Jones, nurse practitioner, recently and was told that she had an effusion, but in the next breath Elsa says that Jessee could not see her tympanic membrane, but she was ???diagnosed with an effusion?? . Patient reports that she ???has had problems with this in the past, butas soon as they put tympanostomy tubes in it completely resolved?? . The patient has utilized Ciprodex drops in the past which worked quite well, but again once she finished her Ciprodex drops her symptoms would return. Jessee Jones saw the patient today and obtained a culture. REVIEW OF SYSTEMS: CONSTITUTIONAL: No fevers, chills, or night sweats. No weight change. HENT: As per the HPI. PHYSICAL EXAMINATION: CONSTITUTIONAL: Shows a healthy female who is responding appropriately. Mood and affect are intact.She is pleasant. Vital signs are per the EMR product. HEAD: Normocephalic and midline. No lesions noted. Symmetrical facial appearance. EYES: Pupils are equal, round, and reactive to light and accommodation. Extraocular eye motions areintact. Sclerae are clear and nonicteric. Conjunctivae without significant erythema or eye discharge. EARS: Ears are noted to have eczematous changes to the bowl of each ear as well as the meatus. On the right she is noted to have some otorrhea. Remaining exam will be under scope. ORAL CAVITY: Tongue is midline and mobile. Soft palate rises easily and symmetrically. Oral mucosa without lesions. Posterior pharynx without abnormalities. Lips without lesions or abnormalities. NECK: Soft and supple with normal range of motion. No anterior or posterior cervical lymphadenopathy. No nuchal rigidity. No palpable neck masses. The thyroid is palpated without asymmetry or palpable thyroid nodules. BINOCULAR MICROSCOPY: The right ear was approached. With suction tip #5, I removed the otorrhea from the external auditory canal. Eczematous changes are noted bilaterally. On the left tympanic membrane is intact. Middle ear space is well aerated. The patient had a midline Goncalves with a positive Rinne bilaterally. Mimi Cox DNP, BLASTING CONTRACT MAN, DICTAPHONE TYPIST-BC/[facility] Vitals, Current Meds & Allergies: Vitals: 07/29/21 1352 Pulse: 76 SpO2: 99% Weight: 169 lb (76.7 kg) Body surface area is 1.83 meters squared. Body mass index is 30.91 kg/m??. Outpatient Encounter Medications as of 07/29/2021 Medication Sig Dispense Refill ??? amLODIPine (NORVASC) 10 MG Tablet Take 10 mg by mouth daily. ??? ubsghelsgw-pchsshmxephcq-zwqykesm (FIORICET, ESGIC) 50-325-40 MG Tablet TAKE 1-2 TABLETS BY MOUTH EVERY 8 HOURS NEEDED FOR HEADACHE ??? clobetasol (Temovate) 0.05 % Cream Apply thin layer to affected area twice daily for 5 days. 15g 0 ??? clotrimazole-betamethasone (LOTRISONE) 1-0.05 % Cream Apply sparingly to affected area twice daily for 5 days. 45 g 0 ??? famotidine (PEPCID) 20 MG Tablet Take 20 mg by mouth. ??? gabapentin (NEURONTIN) 300 MG Capsule TAKE ONE CAPSULE AT BEDTIME ??? LORazepam (ATIVAN) 0.5 MG Tablet TAKE ONE TABLET DAILY NEEDED FOR ANXIETY ??? metoprolol tartrate (LOPRESSOR) 25 MG Tablet Take 25 mg by mouth 2 times daily. ??? mycophenolate (CELLCEPT) 250 MG Capsule ??? traZODone (DESYREL) 50 MG Tablet TAKE ONE TABLET AT BEDTIME No facility-administered encounter medications on file as of 07/29/2021. Allergies Allergen Reactions ??? Aspirin Anaphylaxis counteracts immunosuppressment ??? Codeine Itching ??? Erythromycin Other (see Comments) Counteracts immunosuppressants ??? Gentamicin Other (see Comments) Medication interaction Medication interaction ??? Toradol [Ketorolac Tromethamine] Other (see Comments) Immunosuppressants PMH/SgH/FH/SH: Past Medical History Positives Diagnosis Date ??? GERD (gastroesophageal reflux disease) ??? Liver transplant recipient (HCC) 1992 ??? Migraine ??? Smoking 1/2 pack a day or less Past Surgical History: Procedure Laterality Date ??? SECTION, LOW TRANSVERSE times 2 ??? CHOLECYSTECTOMY, OPEN ??? APPENDECTOMY ??? BREAST LUMPECTOMY 1998 ??? CERVICAL CONIZATION ??? CONDYLOMA SURGERY N/A 01/10/2018 Procedure: LASER ABLATION CONDYLOMA GENITAL AREA (#[id number]); Surgeon: Umesh Washington MD; Location: [facility] OR; Service: Obstetrics Gynecology ??? ENDOMETRIAL ABLATION ??? FINGER NAIL SURGERY Right 02/21/2018 Procedure: RIGHT LONG FINGER NAIL BED PARTIAL ABLATION; Surgeon: Johnson Hernandez MD; Location: [facility]; Service: Orthopaedic ??? FINGER NAIL SURGERY Right 09/14/2018 Procedure: RIGHT THUMB ANDLONG FINGER PARTIAL NAILBED ABLATION; Surgeon: Johnson Hernandez MD; Location: [facility]; Service: Orthopaedic ??? INGUINAL HERNIA REPAIR [...] Orde r Schedule BINOCULAR MICROSCOPY SEPARATE PROCEDURE DC Charge Routine Chronic eczematous otitis externa of both ears Chronic otorrhea, right Ordered: 07/29/2021 documented as of this encounter Visit Diagnoses Diagnosis Chronic eczematous otitis externa of both ears- Primary Chronic otorrhea, right documented in this encounter Additional Health Concerns Assessment Noted Time PHQ-9 Depression Total Score: 0 01/21/20 21 2:00 PM CDT documented as of this encounter Care Teams Fuel Dock Attendant Relationship Specialty Start Date End Date Hermes Ramirez MD [address] [facility] [address] [place] [id number] PCP - General Family Medicine 05/09/18 documented as of this encounter
--- OUTSIDE RECORDS SUMMARY | 2024-03-20 14:06 | XMS_ITS | Encounter Summary ---
Author Organization [facility] Address [address] [place] [address] Phone Care Team Providers Care President [employer] Bank Name Role Phone Hermes Ramirez MD Primary Care Provider [phone] Reason for Visit * Reason Onset Date Comments Prior Authorization 12/18/2019 Desoximetaso ne prior authorization denial Encounter Details Date Type Department Care Team (Late st Contact Info) Description 12/18/2019 Telephone [facility] Case Management [address] [place] [address] Tara Obrien, PRODUCTION SUPV, SIGNALS INTELLIGENCE ANALYSIS MANAGER [address] [place] [address] Prior Authorization (Desoximetasone prior authorization denial) Social History Tobacco Use Types Packs/Day Years Used Date Smoking Tobacco: Every Day Cigarettes 0.3 10 Smokeless Tobacco: Never Alcohol Use Standard Drinks/Week Comments No 0 (1 standard drink = 0.6 oz pur e alcohol) PHQ-2 Answer Date Recorded PHQ-2 Score 0 12/03/2018 Sexually Active Control Partners Comments Yes Male [...] have Coronavirus / COVID-19? No / Unsure 12/16/2019 9:45 AM CDT documented as of this encounter Miscellaneous Notes * Telephone Encounter - Freida Hazel CMA - 12/18/2019 11:53 AM CDT Requested Prescriptions Signed Prescriptions Disp Refills ??? mometasone (Elocon) 0.1 % Cream 45 g 0 Sig: Apply to the affected ears as needed twice daily for itching Authorizing Provider: TARA OBRIEN Ordering User: FREIDA HAZEL * Telephone Encounter - Abbi Edgar - 12/18/2019 11:09 AM CDT MED PRIOR AUTH: Recvd notification from [employer] request for Desoximetasone 0.25% cream was DENIED, Must try and fail five preferred drugs for at least 2 weeks each. Preferred drugs are Alclometasone 0.05%cream or ointment, Betametasone Valerate 0.1% cream, lotion, or ointment, Clobetasol 0.05% cream, gel, or ointment, Desonide 0.05% cream, ointment, Fluocinoline cream or ointment, Fluticasone cream or ointment, Halobetasol cream, ointment, Mometasone cream, ointment, Triamcinolone cream, lotion, ointment. Cover my meds VO [id number] Please call me if any questions [phone]. documented in this encounter Plan of Treatment Not on file documented as of this encounter Visit Diagnoses Not on filedocumented in this encounter Additional Health Concerns Assessment Noted Time PHQ-9 Depression Total Score: 0 05/09/19 19 3:00 PM RADIO PRESENTER documented as of this encounter Care Teams President Commercial Bank Relationship Specialty Start Date End Date Hermes Ramirez MD [address] [place] [address] PCP - General Family Medicine 05/09/18 documented as of this encounter
--- OUTSIDE RECORDS SUMMARY | 2024-03-20 14:06 | XMS_ITS | Encounter Summary ---
Author Organization [facility] Address [address] [place] [address] Phone Care Team Providers Care In Store Marketing Associate Name Role Phone Hermes Ramirez MD Primary Care Provider [phone] [phone] Reason for Visit * Reason Comments Ear Drainage Encounter Details Date Type Department Care Team (Late st Contact Info) Description 02/04/2020 2:30 PM NEPHROLOGY SOCIAL WORKER Office Visit [facility] [address] [place] [address] Teofilo Willard, SENIOR BI DEVELOPER, BASKET GRADER [address] [place] [address] Otorrhea of both ears (Primary Dx); History of recurrent ear infection; Hearing exam without abnormal findings Discharge Disposition: Discharged to home or Selfcare Social History Tobacco Use Types Packs/Day Years Used Date Smoking Tobacco: Every Day Cigarettes 0.3 10 Smokeless Tobacco: Never Alcohol Use Standard Drinks/Week Comments No 0 (1 standard drink = 0.6 oz pur e alcohol) PHQ-2 Answer Date Recorded Total Score - Questions 1-9 0 01/18 Sexually Active Control Partners Comments Yes Male [...] have Coronavirus / COVID-19? No / Unsure 02/04/2020 2:46 PM NEPHROLOGY SOCIAL WORKER documented as of this encounter Last Filed Vital Signs Vital Sign Reading Time Taken Comments Blood Pressure - - Pulse 80 02/04/2020 2:51 PM NEPHROLOGY SOCIAL WORKER Temperature - - Respiratory Rate - - Oxygen Saturation 98% 02/04/2020 2:51 PM NEPHROLOGY SOCIAL WORKER Inhaled Oxygen Concentration - - Weight 77.1 kg (170 lb) 02/04/2020 2:51 PM NEPHROLOGY SOCIAL WORKER Height 157.5 cm (5' 2 ) 02/04/2020 2:51 PM NEPHROLOGY SOCIAL WORKER Body Mass Index 31.09 02/04/2020 2:51 PM NEPHROLOGY SOCIAL WORKER documented in this encounter Patient Instructions * Patient Instructions* Freida Junior CMA - 02/04/2020 2:30 PM NEPHROLOGY SOCIAL WORKER Patient/family member/caregiver verbalized understanding of patient instructions from today's visit. After your visit you may receive an e-mail from a company called [employer]. This is an anonymous survey of approximately 16 questions that let us know how we did today. We value your feedback, as we want to know how we are doing and what we can do to improve your experience and serve you better. Thank you. ROLOGY SOCIAL WORKER documented in this encounter Progress Notes * Teofilo Willard, ANT, BASKET GRADER - 02/04/2020 2:30 PM CST Patient: Elsa Browne Age: 39 y.o. : 1980 Encounter Dept: [facility] Encounter Date: 02/04/2020 Chief Complaint Patient presents with ??? Ear Drainage Impression: 1. Bilateral otorrhea 2. History of recurring ear infections 3. Hearing exam normal History of Present Illness: Elsa Browne is a 39 y.o. female who comes again for re-evaluation of her bilateral ears for otorrhea. I last saw her on 12/08/2019 for otorrhea. She states a few days ago she developed a drainage of her right ear and the next day on her left ear. She says the drainage on the right ears much worse than the left. She states that she is also having pain in both ears with the left being greaterthan the right side. She states that she started her prednisolone drops that she had at the last visit she has used those last few days before the visit. She does have a history of [place]. Ochoa had removed those tubes here in the office a few years ago. She denies any ringing. She denies any pressure fullness. She denies any change in her hearing. She does state she has some dizzy spells every once in a while. She says she gets these which she stands uppersits down quickly her when she is turning from side to side in bed. She states that feels like she has spinning. She states these episodes usually go away about 10 minutes 15 seconds. She states thatshe does get nausea with these episodes at times but no vomiting. She states that she had has had afew headaches with these. She denies any fluctuation in her hearing during these episodes or any tinnitus during these episodes. She states the only thing that helps these episodes is sitting still require close her eyes. She denies any lightheadedness or any syncope periods. She denies any historyof arrhythmias. And she also denies any history of clotting disorders. She denies that she has an unsteady gait or walking to 1 side when she walks. She denies any history of stroke, seizures, doublevision or any visual changes. She denies any history of diabetes. She states that she drinks 2 or 3cups of coffee a day. She states that she does not consume any extra sodium in her diet. This appointment took approximately 30 minutes. Plan: We are going to set up an appointment with her to see Dr. Alicea about possibly placing tubes in her ears. I discussed with her at length that I did not totally feel like she was a candidate for tympanostomy tubes. I would like to set her up with a VNG for her dizziness. I did tell her to call the office if symptoms get worse before her visit with Dr. Alicea. And that she will need to be set up to see him a little bit sooner if possible. Patient may call the office ifany issues should arise before the next visit make appointment. Patient agrees the care plan. Review of Systems: Except as stated in the HPI, review of system is otherwise negative. CONSTITUTIONAL: No fever or chills. No fatigue. [...] GENITOURINARY: No flank pain. No dysuria. NEUROLOGICAL: No numbness. No seizures. No syncope. HEMATOLOGICAL: No easy bleeding or easy bruising. PSYCHIATRIC: No dysphoric mood. No hallucinations. No thoughts of self-injury. SKIN: No skin rash or pallor. ALLERGY/IMMUNOLOGY: No food allergies. Not immunocompromised Physical Exam: GENERAL APPEARANCE: Well-developed female, well-nourished. Alert. Orientation to time, place, and person. HEAD/FACIAL: : Normocephalic and midline. No scars, masses, or lesions seen. Facial symmetry and strength are normal. No sinus tenderness. No salivary gland abnormalities. EYES: : Pupils are equal, round, and reactive to light and accommodation. Extraocular eye motions are intact. Sclerae are clear and nonicteric. Conjunctivae without significant erythema or eye discharge. CARDIAC: Regular rate and rhythm. There are no carotid bruits appreciated. CHEST: Lungs are clear throughout anteriorly and posteriorly. No adventitious lung sounds. Respiratory rate was easy and unlabored ENT: Voice: Normal. EARS: External inspection reveals no scars, lesions, or masses. The Bilateral tympanic membranes are easily visualized without retraction or effusion. The middle air space appears to be well aerated.Bilateral external auditory canals are unremarkable. No preauricular or postauricular lymphadenopathy, mastoid tenderness or fluctuance. Tuning fork testing - Juan Goncalves normal. NOSE: External inspection reveals no scars, lesions, or masses by inspection. No major deformation. ENDONASAL: ANTERIOR RHINOSCOPY: Straight septum, normal turbinates. Normal mucosa. LIPS, DENTITION, GINGIVAE, GUMS: Intact dentition. Gingivae and lips are normal. ORAL CAVITY/OROPHARYNX: Oral mucosa, palate, tongue, tonsils, and posterior pharynx and pharyngeal camacho normal in color and symmetric. NECK: Symmetry and overall appearance is normal. No palpable lymph nodes. Normal laryngeal crepitus. No parotid gland abnormalities. THYROID EXAMINATION: The thyroid is palpated without asymmetry or palpable thyroid nodules. HEAD AND NECK NEUROLOGIC EXAMINATION: No evidence of agitation or anxiety. Mood and affect are normal. Patient is oriented to time, person, and place. Cranial nerves: Cranial nerves II through XII are grossly intact. Facial sensation is equal. Audiogram/Tympanogram: Audiogram today shows normal hearing through all le. She has an os are T in the right ear of 10with a 100% speech discrimination. The left ear has a SRT of 0 with a 100% speech discrimination. Tympanogram shows type a tymps bilaterally with normal volumes. This audiogram and tympanogram was unchanged from 2 months ago. Teofilo Willard DNP, SENIOR BI DEVELOPER, REHAB SPEC-BC Vitals, Current Meds & Allergies: Vitals: 02/04/20 1451 Pulse: 80 SpO2: 98% Weight: 170 lb (77.1 kg) Height: 5' 2 (1.575 m) Body surface area is 1.84 meters squared. Body mass index is 31.09 kg/m??. Outpatient Encounter Medications as of 02/04/2020 Medication Sig Dispense Refill ??? butorphanol (STADOL) 10 MG/ML Solution 1 [place] by Nasal route every 4 hours as needed. Indications: Migraine Headache ??? desoximetasone (TOPICORT) 0.25 % Cream Apply to the affected area as needed twice daily for itching. 1 Tube 0 ??? DULoxetine (CYMBALTA) [address] Particles Take 30 mg by mouth. ??? mometasone (Elocon) 0.1 % Cream Apply to the affected ears as needed twice daily for itching 45g 0 ??? OMEPRAZOLE PO Take 20 mg by mouth as needed. ??? [DISCONTINUED] prednisoLONE sodium phosphate (INFLAMASE FORTE) 1 % Solution Apply 5 drops to each ear twice daily for 10 days. 1 Bottle 0 ??? promethazine (PHENERGAN) 25 MG Tablet Take 25 mg by mouth every 6 hours as needed for Nausea - 1st line. ??? sodium bicarbonate 650 MG Tablet Take 1,300 mg by mouth 2 times daily. ??? Tacrolimus (PROGRAF PO) Take 2 mg by mouth 2 times daily. ??? Topiramate (TOPAMAX) 50 MG Tablet Take 50 mg by mouth 3 times daily. Indications: Migraine Headache No facility-administered encounter medications on file as of 02/04/2020. Allergies Allergen Reactions ??? Aspirin Anaphylaxis counteracts immunosuppressment ??? Codeine Itching ??? Erythromycin Other (see Comments) Counteracts immunosuppressants ??? Toradol [Ketorolac Tromethamine] Other (see Comments) [...] 01/10/2018 Procedure: LASER ABLATION CONDYLOMA GENITAL AREA (#[id number]); Surgeon: Umesh Washington MD; Location: [facility] OR; Service: Obstetrics Gynecology ??? ENDOMETRIAL ABLATION ??? FINGER NAIL SURGERY Right 02/21/2018 Procedure: RIGHT LONG FINGER NAIL BED PARTIAL ABLATION; Surgeon: Johnson Hernandez MD; Location: [facility]; Service: Orthopaedic ??? FINGER NAIL SURGERY Right 09/14/2018 Procedure: RIGHT THUMB ANDLONG FINGER PARTIAL NAILBED ABLATION; Surgeon: Johnson Hernandez MD; Location: [facility]; Service: Orthopaedic ??? INGUINAL HERNIA REPAIR Bilateral ??? LIVER TRANSPLANT 1993 Family History Problem Relation Age of Onset ??? Liver Cancer Mother ??? Diabetes Mother ??? No Known Problems Father Social History Socioeconomic History ??? Marital status: Spouse name: Not on file ??? Number of children: Not on file ??? Years of education: Not on file ??? Highest education level: Not on file Tobacco Use ??? Smoking status: Current Every Day Smoker Packs/day: 0.25 Years: 10.00 Pack years: 2.50 ??? Smokeless tobacco: Never Used Substance and Sexual Activity ??? Alcohol use: No ??? Drug use: No ??? Sexual activity: Yes Partners: Male Family Status: Family Status Relation Name Status ??? Mother ??? Father Cosigned by Eliceo Craft MD at 02/04/2020 5:39 PM NEPHROLOGY SOCIAL WORKER ROLOGY SOCIAL WORKER ROLOGY SOCIAL WORKER documented in this encounter Plan of Treatment Not on file documented as of this encounter Visit Diagnoses Diagnosis Otorrhea of both ears- Primary Otorrhea, unspecified History of recurrent ear infection Hearing exam without abnormal findings documented in this encounter Additional Health Concerns Assessment Noted Time PHQ-9 Depression Total Score: 0 02/04/20 20 2:00 PM NEPHROLOGY SOCIAL WORKER documented as of this encounter Care Teams In Store Marketing Associate Relationship Specialty Start Date End Date Hermes Ramirez MD [address] [facility] [address] [place] [address] PCP - General Family Medicine 05/09/18 documented as of this encounter
--- OUTSIDE RECORDS SUMMARY | 2024-03-20 14:06 | XMS_ITS | Encounter Summary ---
Author Organization [employer] Care Team Providers Care Ibm Websphere Portal Developer Name Role Phone Hermes Ramirez MD Primary Care Provider + [phone] Encounter Details Date Type Department Care Team [...] Coronavirus / COVID-19? No / Unsure 02/19/2020 1:27 PM DECISION SCIENCE ANALYST documented as of this encounter Plan of Treatment Not on file documented as of this encounter Visit Diagnoses Not on filedocumented in this encounter Additional Health Concerns Assessment Noted Time PHQ-9 Depression Total Score: 0 02/04/20 20 2:00 PM DECISION SCIENCE ANALYST documented as of this encounter Care Teams Ibm Websphere Portal Developer Relationship Specialty Start Date End Date Hermes Ramirez MD [address] [address] PCP - General Family Medicine 05/09/18 documented as of this encounter
--- OUTSIDE RECORDS SUMMARY | 2024-03-20 14:06 | XMS_ITS | Encounter Summary ---
Author Organization [facility] Address [address] [place] [address] Phone Care Team Providers Care Freight Booker Name Role Phone Hermes Ramirez MD Primary Care Provider [phone] [phone] Encounter Details Date Type Department Care Team (Latest Contact Info) Description 02/19/2020 1:15 PM AUTOMATIC PRESSER Audiology Tech Visit [facility] [address] [place] [address] Dizziness (Primary Dx) Discharge Disposition: Discharged to home [...] COVID-19? No / Unsure 02/19/2020 1:27 PM AUTOMATIC PRESSER documented as of this encounter Progress Notes * Lizbeth Herrera AUD - 02/19/2020 1:15 PM CST VNG completed to assess for vestibular dysfunction as primary complaint is dizziness. See report for details. Testing requested by Dilip Willard APRN MATIC PRESSER documented in this encounter Plan of Treatment Not on file documented as of this encounter Procedures Procedure Name Priority Date/Time Associated Diagnosis Comments AUDIOLOGY PROCEDURE Routine 02/19/2020 Dizziness documented in this encounter Results * AUDIOLOGY PROCEDURE (02/19/2020) Teofilo Willard APRN, INSULATION INSPECTOR GEN ORDERS Fi nal Result documented in this encounter Visit Diagnoses Diagnosis Dizziness- Primary Dizziness and giddiness documented in this encounter Additional Health Concerns Assessment Noted Time PHQ-9 Depression Total Score: 0 02/04/20 20 2:00 PM AUTOMATIC PRESSER documented as of this encounter Care Teams Freight Booker Relationship Specialty Start Date End Date Hermes Ramirez MD [address] [address] PCP - General Family Medicine 05/09/18 documented as of this encounter
--- OUTSIDE RECORDS SUMMARY | 2024-03-20 14:06 | XMS_ITS | Encounter Summary ---
Author Organization [facility] Address [address] [place] [address] Phone Care Team Providers Care Beading Installer Name Role Phone Hermes Ramirez MD Primary Care Provider [phone] [phone] Encounter Details Date Type Department Care Team (Latest Contact Info) Description 01/20/2021 2:15 PM CDT Audiology Tech Visit [facility] [address] [place] [address] Audiology, En[place] Discharge Disposition: Discharged to home or Selfcare Social History Tobacco Use Types Packs/Day Years Used Date Smoking Tobacco: Every Day Cigarettes 0.3 10 Smokeless Tobacco: Never Alcohol Use Standard Drinks/Week Comments No 0 (1 standard drink = 0.6 oz pur e alcohol) PHQ-2 Answer Date Recorded Total Score - Questions 1-9 0 05/2020 Sexually Active Control Partners Comments Yes Male [...] have Coronavirus / COVID-19? No / Unsure 01/20/2021 2:02 PM CDT documented as of this encounter Progress Notes * Lenora Acuña, ASHLEE - 01/20/2021 2:15 PM CDT Did not test. documented in this encounter Plan of Treatment Not on file documented as of this encounter Visit Diagnoses Not on filedocumented in this encounter Additional Health Concerns Assessment Noted Time PHQ-9 Depression Total Score: 0 01/21/20 21 2:00 PM CDT documented as of this encounter Care Teams Beading Installer Relationship Specialty Start Date End Date Hermes Ramirez MD [address] [facility] [address] [place] [address] PCP - General Family Medicine 05/09/18 documented as of this encounter
--- OUTSIDE RECORDS SUMMARY | 2024-03-20 14:06 | XMS_ITS | Encounter Summary ---
Author Organization [employer] Care Team Providers Care Belt Sander Name Role Phone Hermes Ramirez MD Primary Care Provider + -[phone] Encounter Details Date Type Department Care Team (Latest Contact Info) Description 02/04/2020 Travel Social History Tobacco Use Types Packs/Day [...] COVID-19? No / Unsure 02/04/2020 2:46 PM RELIABILITY ENGINEER documented as of this encounter Plan of Treatment Not on file documented as of this encounter Visit Diagnoses Not on filedocumented in this encounter Additional Health Concerns Assessment Noted Time PHQ-9 Depression Total Score: 0 02/04/20 20 2:00 PM RELIABILITY ENGINEER documented as of this encounter Care Teams Belt Sander Relationship Specialty Start Date End Date Hermes Ramirez MD [address] [address] PCP - General Family Medicine 05/09/18 documented as of this encounter
--- OUTSIDE RECORDS SUMMARY | 2024-03-20 14:06 | XMS_ITS | Encounter Summary ---
Author Organization [employer] Care Team Providers Care Aircraft Log Clerk Name Role Phone Hermes Ramirez MD Primary Care Provider [phone] [phone] Encounter Details Date Type Department Care Team (Latest Contact Info) Description 01/20/2021 Travel Social History Tobacco Use Types Packs/Day [...] documented as of this encounter Care Teams Aircraft Log Clerk Relationship Specialty Start Date End Date Hermes Ramirez MD [address] [facility] [address] [place] [address] PCP - General Family Medicine 05/09/18 documented as of this encounter
--- OUTSIDE RECORDS SUMMARY | 2024-03-20 14:06 | XMS_ITS | Encounter Summary ---
Author Organization [facility] Address [address] [place] [address] Phone Care Team Providers Care Financial Services Rep Name Role Phone Hermes Ramirez MD Primary Care Provider + -[phone] Encounter Details Date Type Department Care Team (Late st Contact Info) Description 01/20/2021 Telephone [facility] [address] [place] [address] Eliceo Craft MD [address] [place] [address] Social History Tobacco Use Types [...] Telephone Encounter - Freida Hazel CMA - 01/20/2021 3:15 PM CDT Requested Prescriptions Signed Prescriptions Disp Refills ??? clobetasol (Temovate) 0.05 % Cream 15 g 0 Sig: Apply thin layer to affected area twice daily for 5 days. Authorizing Provider: ELICEO CRAFT Ordering User: FREIDA HAZEL documented in this encounter Plan of Treatment Not on file documented as of this encounter Visit Diagnoses Not on filedocumented in this encounter Additional Health Concerns Assessment Noted Time PHQ-9 Depression Total Score: 0 01/21/20 21 2:00 PM CDT documented as of this encounter Care Teams Financial Services Rep Relationship Specialty Start Date End Date Hermes Ramirez MD [address] [place] [address] PCP - General Family Medicine 05/09/18 documented as of this encounter
--- OUTSIDE RECORDS SUMMARY | 2024-03-20 14:06 | XMS_ITS | Encounter Summary ---
Author Organization [facility] Address [address] [place] [address] Phone Care Team Providers Care Fermentation Operator Name Role Phone Hermes Ramirez MD Primary Care Provider +1 [phone] Encounter Details Date Type Department Care Team (Latest Contact Info) Description 02/04/2020 2:45 PM AUDIO VIDEO TECH Audiology Tech Visit [facility] [address] [place] [address] Audiology, [place] History of recurrent ear infection (Primary Dx); Hearing exam without abnormal findings Discharge Disposition: [...] COVID-19? No / Unsure 02/04/2020 2:46 PM AUDIO VIDEO TECH documented as of this encounter Progress Notes * Lizbeth Herrera, ASHLEE - 02/04/2020 2:45 PM CST Pure tone air and bone conduction and speech audiometry completed to determine degree and type of hearing loss as well as the patient's ability to understands speech as the primary complaint is a concern for middle ear pathologies with a history of ear infections. Tympanometry also completed to assess integrity of middle ear due to a concern for middle ear dysfunction / infection as patient complains of ear drainage. Testing requested by Dilip Willard APRN. O VIDEO TECH documented in this encounter Plan of Treatment Not on file documented as of this encounter Procedures Procedure Name Priority Date/Time Associated Diagnosis Comments AUDIOLOGY PROCEDURE Routine 02/04/2020 History of recurrent ear infection Hearing exam without abnormal findings documented in this encounter Results * AUDIOLOGY PROCEDURE (02/04/2020) us Teofilo Willard APRN, ELLEN GEN ORDERS Fi nal Result documented in this encounter Visit Diagnoses Diagnosis History of recurrent ear infection- Primary Hearing exam without abnormal findings documented in this encounter Additional Health Concerns Assessment Noted Time PHQ-9 Depression Total Score: 0 02/04/20 20 2:00 PM AUDIO VIDEO TECH documented as of this encounter Care Teams Fermentation Operator Relationship Specialty Start Date End Date Hermes Ramirez MD [address] [address] PCP - General Family Medicine 05/09/18 documented as of this encounter
--- OUTSIDE RECORDS SUMMARY | 2024-03-20 14:06 | XMS_ITS | Encounter Summary ---
Author Organization [facility] Address [address] [place] [address] Phone Care Team Providers Care Supervisor Assembly Stock Name Role Phone Hermes Ramirez MD Primary Care Provider + -[phone] Encounter Details Date Type Department Care Team (Late st Contact Info) Description 02/06/2020 Telephone [facility] [address] [place] [address] Teofilo Willard, AUTOMOBILE SERVICE WRITER, SUPERVISOR DENTURE DEPARTMENT [address] [place] [address] Social History Tobacco Use Types Packs/Day Years [...] COVID-19? No / Unsure 02/04/2020 2:46 PM MARINE TOWER OPERATOR documented as of this encounter Miscellaneous Notes * Telephone Encounter - Freida Junior CMA - 02/06/2020 3:28 PM CST Per Rachel pt to have VNG done before appt with Pt instructions given and pt aware of questionnaire to fill out and bring with the day of testing. Notified patient. Verbalized understanding and appreciation. 02/18/20 @3:15 NE TOWER OPERATOR documented in this encounter Plan of Treatment Not on file documented as of this encounter Visit Diagnoses Not on filedocumented in this encounter Additional Health Concerns Assessment Noted Time PHQ-9 Depression Total Score: 0 02/04/20 20 2:00 PM MARINE TOWER OPERATOR documented as of this encounter Care Teams Supervisor Assembly Stock Relationship Specialty Start Date End Date Hermes Ramirez MD [address] [facility] [address] [place] [address] PCP - General Family Medicine 05/09/18 documented as of this encounter
--- OUTSIDE RECORDS SUMMARY | 2024-03-20 14:06 | XMS_ITS | Encounter Summary ---
Author Organization [facility] Address [address] [place] [address] Phone Care Team Providers Care Briquette Machine Operator Helper Name Role Phone Hermes Ramirez MD Primary Care Provider [phone] Encounter Details Date Type Department Care Team (Late st Contact Info) Description 02/25/2020 Telephone [facility] [address] [place] [address] Teofilo Willard, WAX BALL KNOCK OUT WORKER, SOLE SEWER HAND [address] [place] [address] Social History Tobacco Use Types Packs/Day Years [...] COVID-19? No / Unsure 02/19/2020 1:27 PM WELDING PROCESS ENGINEER documented as of this encounter Miscellaneous Notes * Telephone Encounter - Freida Junior CMA - 02/25/2020 1:55 PM CST Per Rachel reviewed [facility] pt needs to see neurologist(not ear related) Packager Or Packer And Weigher attempted to phone pt multiple times, phone number listed has a restriction on numbers calling Packager Or Packer And Weigher phoned pt contact(Charu) to relay message to call our office. Verbalized understanding and will relay message ING PROCESS ENGINEER documented in this encounter Plan of Treatment Not on file documented as of this encounter Visit Diagnoses Not on filedocumented in this encounter Additional Health Concerns Assessment Noted Time PHQ-9 Depression Total Score: 0 02/04/20 20 2:00 PM WELDING PROCESS ENGINEER documented as of this encounter Care Teams Briquette Machine Operator Helper Relationship Specialty Start Date End Date Hermes Ramirez MD [address] [place] [address] PCP - General Family Medicine 05/09/18 documented as of this encounter
--- OUTSIDE RECORDS SUMMARY | 2024-03-20 14:06 | XMS_ITS | Encounter Summary ---
Author Organization [facility] Address [address] [place] [address] Phone Care Team Providers Care Enterprise Cloud Architect Name Role Phone Hermes Ramirez MD Primary Care Provider [phone] Reason for Visit * Reason Comments Hearing Loss Encounter Details Date Type Department Care Team (Late st Contact Info) Description 01/20/2021 2:30 PM CDT Office Visit [facility] [address] [place] [address] Mimi Cox N, CAFETERIA ATTENDANT, WASHING MACHINE STRIPER [address] [place] [address] Chronic eczematous otitis externa of both ears (Primary Dx) Discharge Disposition: Discharged to home [...] Taken Comments Blood Pressure - - Pulse 88 01/20/2021 2:40 PM CDT Temperature - - Respiratory Rate - - Oxygen Saturation 98% 01/20/2021 2:40 PM CDT Inhaled Oxygen Concentration - - Weight 80.7 kg (178 lb) 01/20/2021 2:40 PM CDT Height 157.5 cm (5' 2 ) 01/20/2021 2:40 PM CDT Body Mass Index 32.56 01/20/2021 2:40 PM CDT documented in this encounter Patient Instructions * Patient Instructions* Freida Junior CMA - 01/20/2021 2:30 PM CDT Patient/family member/caregiver verbalized understanding of patient instructions from today's visit. After your visit you may receive an e-mail from a company called [employer]. This is an anonymous survey of approximately 16 questions that let us know how we did today. We value your feedback, as we want to know how we are doing and what we can do to improve your experience and serve you better. Thank you. documented in this encounter Progress Notes * Mimi Cox APRN, ELLEN - 01/20/2021 2:30 PM CDT Patient: Elsa Browne Age: 40 y.o. : 1980 Encounter Dept: [facility] Encounter Date: 01/20/2021 IMPRESSION: Bilateral otitis externa, due to eczema. PLAN: I am going to have the patient utilize Temovate cream 0.05% b.i.d. for five days, every day for five days, then every other day for five days then discontinue and I will see her back in a monthand we will reevaluate her ears. If her ears should exacerbate between now and the next appointment, then I need to see her on a day that she is having symptoms. She agreed with the current plan of care. HISTORY OF PRESENT ILLNESS: Elsa Browne is a 40-year-old female who is an established patient in the office. She has problems with otorrhea for the last two years intermittently. She reports thatoften times her ears will itch and she will have scabbing and buildup of debris in her ears. Her ears typically calm down with the use of Ciprodex. She recently utilized Ciprodex that was prescribed by Dr. Ramirez. She is frustrated because this is a recurrent issue. She does have a history of liver and kidney transplant and is on immunosuppressant drugs currently. She also has a history of tympanostomy tubes in the past. REVIEW OF SYSTEMS: HENT: As per HPI. PHYSICAL EXAM: CONSTITUTIONAL: Shows a healthy active female patient who is responding appropriately. Mood and affect are intact. She is pleasant. Vital signs are per the EMR product. HEAD: Normocephalic and midline. No lesions noted. Symmetrical facial appearance. EYES: Pupils are equal, round, and reactive to light and accommodation. Extraocular eye motions areintact. Sclerae are clear and nonicteric. Conjunctivae without significant erythema or eye discharge. EARS: Are noted to have eczematous changes bilaterally with some debris in the external auditory canal. NOSE: With anterior rhinoscopy, no purulence, polyps [...] nodules. BINOCULAR MICROSCOPY: Informed consent was obtained to debride both of her ears. She was placed in the supine position. Both ears were approached with the microscope and with alligator forceps I removed debris from the external auditory canal down to tympanic membranes which are intact. Again thereare eczematous changes to the meatus bilaterally. Mimi Cox, DNP, STRUCTURAL ENGINEER-BC/sdt Vitals, Current Meds & Allergies: Vitals: 01/20/21 1440 Pulse: 88 SpO2: 98% Weight: 178 lb (80.7 kg) Height: 5' 2 (1.575 m) Body surface area is 1.88 meters squared. Body mass index is 32.56 kg/m??. Outpatient Encounter Medications as of 01/20/2021 Medication Sig Dispense Refill ??? amLODIPine (NORVASC) 10 MG Tablet Take 10 mg by mouth daily. ??? keqtrvgqbo-dbmocgurbolbf-ydvxqmhn (FIORICET, ESGIC) 50-325-40 MG Tablet TAKE 1-2 TABLETS BY MOUTH EVERY 8 HOURS NEEDED FOR HEADACHE ??? [DISCONTINUED] butorphanol (STADOL) 10 MG/ML Solution 1 [facility] by Nasal route every 4 hours as needed. Indications: Migraine Headache ??? [DISCONTINUED] calcium carbonate 1250 (500 Ca) MG Chewable Tablet Take 400 mg by mouth. ??? [DISCONTINUED] carvedilol (COREG) 25 MG Tablet take 2 tablets by mouth two times daily. best iftaken with food ??? [DISCONTINUED] ciprofloxacin-dexamethasone (CIPRODEX) 0.3-0.1 % Suspension instill 4 drops intothe right ear twice a day for 7 days ??? [DISCONTINUED] citalopram (CeleXA) 20 MG Tablet Take 20 mg by mouth daily. ??? [DISCONTINUED] desoximetasone (TOPICORT) 0.25 % Cream Apply to the affected area as needed twice daily for itching. 1 Tube 0 ??? [DISCONTINUED] DULoxetine (CYMBALTA) [address] Particles Take 30 mg by mouth. ??? famotidine (PEPCID) 20 MG Tablet Take 20 mg by mouth. ??? [DISCONTINUED] furosemide (LASIX) 40 MG Tablet Take 40 mg by mouth. ??? gabapentin (NEURONTIN) 300 MG Capsule TAKE ONE CAPSULE AT BEDTIME ??? LORazepam (ATIVAN) 0.5 MG Tablet TAKE ONE TABLET DAILY NEEDED FOR ANXIETY ??? metoprolol tartrate (LOPRESSOR) 25 MG Tablet Take 25 mg by mouth 2 times daily. ??? [DISCONTINUED] mometasone (Elocon) 0.1 % Cream Apply to the affected ears as needed twice dailyfor itching 45 g 0 ??? mycophenolate (CELLCEPT) 250 MG Capsule ??? [DISCONTINUED] OLANZapine (ZYPREXA) 2.5 MG Tablet Take 2.5 mg by mouth daily. ??? [DISCONTINUED] OMEPRAZOLE PO Take 20 mg by mouth as needed. ??? [DISCONTINUED] promethazine (PHENERGAN) 25 MG Tablet Take 25 mg by mouth every 6 hours as needed for Nausea - 1st line. ??? [DISCONTINUED] sodium bicarbonate 650 MG Tablet Take 1,300 mg by mouth 2 times daily. ??? [DISCONTINUED] Tacrolimus (PROGRAF PO) Take 2 mg by mouth 2 times daily. ??? [DISCONTINUED] Topiramate (TOPAMAX) 50 MG Tablet Take 50 mg by mouth 3 times daily. Indications: Migraine Headache ??? traZODone (DESYREL) 50 MG Tablet TAKE ONE TABLET AT BEDTIME ??? [DISCONTINUED] venlafaxine (EFFEXOR-XR) 37.5 MG CAPSULE SR 24 HR TAKE ONE CAPSULE DAILY WITH FOOD. swallow whole No facility-administered encounter medications on file as of 01/20/2021. Allergies Allergen Reactions ??? Aspirin Anaphylaxis counteracts [...] 01/10/2018 Procedure: LASER ABLATION CONDYLOMA GENITAL AREA (#[id number]); Surgeon: Umesh Washington MD; Location: [facility] OR; Service: Obstetrics Gynecology ??? ENDOMETRIAL ABLATION ??? FINGER NAIL SURGERY Right 02/21/2018 Procedure: RIGHT LONG FINGER NAIL BED PARTIAL ABLATION; Surgeon: Johnson Hernandez MD; Location: [facility]; Service: Orthopaedic ??? FINGER NAIL SURGERY Right 09/14/2018 Procedure: RIGHT THUMB ANDLONG FINGER PARTIAL NAILBED ABLATION; Surgeon: Johnson Hernandez MD; Location: [facility]; Service: Orthopaedic ??? INGUINAL HERNIA REPAIR [...] Orde r Schedule BINOCULAR MICROSCOPY SEPARATE PROCEDURE CA Charge Routine Chronic eczematous otitis externa of both ears Ordered: 01/20/2021 documented as of this encounter Visit Diagnoses Diagnosis Chronic eczematous otitis externa of both ears- Primary documented in this encounter Additional Health Concerns Assessment Noted Time PHQ-9 Depression Total Score: 0 01/21/20 21 2:00 PM CDT documented as of this encounter Care Teams Enterprise Cloud Architect Relationship Specialty Start Date End Date Hermes Ramirez MD [address] [place] [address] PCP - General Family Medicine 05/09/18 documented as of this encounter
--- OUTSIDE RECORDS SUMMARY | 2024-03-20 14:07 | XMS_ITS | Encounter Summary ---
Author Organization [employer] Care Team Providers Care Field Crop I Farmworker Name Role Phone Hermes Ramirez MD Primary Care Provider + [phone] Encounter Details Date Type Department Care Team (Latest Contact Info) Description 12/16/2019 Travel Social History Tobacco Use Types Packs/Day [...] Total Score: 0 05/09/19 19 3:00 PM LAUNDRY PRESS OPERATOR documented as of this encounter Care Teams Field Crop I Farmworker Relationship Specialty Start Date End Date Hermes Ramirez MD [address] [address] PCP - General Family Medicine 05/09/18 documented as of this encounter
--- OUTSIDE RECORDS SUMMARY | 2024-03-20 14:07 | XMS_ITS | Encounter Summary ---
Author Organization [facility] Address [address] [place] [address] Phone Care Team Providers Care Rubber Press Operator Name Role Phone Hermes Ramirez MD Primary Care Provider [phone] Reason for Visit * Reason Onset Date Comments Prior Authorization 12/17/2019 Desoximetaso ne prior authorization Encounter Details Date Type Department Care Team (Late st Contact Info) Description 12/17/2019 Telephone [facility] Case Management [address] [place] [address] Teofilo Willard, NUTRITIONIST PUBLIC HEALTH, RADIATOR CLEANER [address] [place] [place] [address] Prior Authorization (Desoximetasone prior authorization) Social History Tobacco Use Types Packs/Day Years [...] encounter Miscellaneous Notes * Telephone Encounter - Abbi Edgar - 12/17/2019 2:23 PM CDT Med Prior Auth: Received request from [employer] for Prior Auth of Desoximetasone Request submitted to [employer]: [id number] Awaiting response, Will update as new information is available. Call me for any questions [phone]. documented in this encounter Plan of Treatment Not on file documented as of this encounter Visit Diagnoses Not on filedocumented in this encounter Additional Health Concerns Assessment Noted Time PHQ-9 Depression Total Score: 0 05/09/19 19 3:00 PM STEEL RULE DIE MAKER documented as of this encounter Care Teams Rubber Press Operator Relationship Specialty Start Date End Date Hermes Ramirez MD [address] [facility] [address] [place] [address] PCP - General Family Medicine 05/09/18 documented as of this encounter
--- OUTSIDE RECORDS SUMMARY | 2024-03-20 14:07 | XMS_ITS | Encounter Summary ---
Author Organization [facility] Address [address] [place] [address] Phone Care Team Providers Care First Breaker Feeder Name Role Phone Hermes Ramirez MD Primary Care Provider [phone] Reason for Visit * Reason Comments Ear Drainage Encounter Details Date Type Department Care Team (Late st Contact Info) Description 12/16/2019 9:30 AM CDT Office Visit [facility] [address] [place] [address] Teofilo Willard, ELECTRONIC SCIENCE TEACHER, AUTOMATIC BUFFER [address] [place] [address] Eczema of external ear, bilateral (Primary Dx); Chronic otitis externa of right ear, unspecified type; TMJ (temporomandibular joint syndrome) Discharge Disposition: Discharged to home or Selfcare [...] Taken Comments Blood Pressure - - Pulse 66 12/16/2019 10:03 AM CDT Temperature - - Respiratory Rate - - Oxygen Saturation 99% 12/16/2019 10:03 AM CDT Inhaled Oxygen Concentration - - Weight 77.1 kg (170 lb) 12/16/2019 10:03 AM CDT Height - - Body Mass Index 31.09 09/14/2018 8:34 AM CDT documented in this encounter Patient Instructions * Patient Instructions* Rosa Ma CMA - 12/16/2019 9:30 AM CDT Patient/family member/caregiver verbalized understanding of patient instructions from today's visit. After your visit you may receive an e-mail from a company called [employer]. This is an anonymous survey of approximately 16 questions that let us know how we did today. We value your feedback, as we want to know how we are doing and what we can do to improve your experience and serve you better. Thank you. documented in this encounter Progress Notes * Teofilo Willard APN, ELLEN - 12/16/2019 9:30 AM CDT Patient: Elsa Browne Age: 39 y.o. : 1980 Encounter Dept: [facility] Encounter Date: 12/16/2019 Chief Complaint Patient presents with ??? Ear Drainage Impression: 1. Eczema of bilateral external auditory canal 2. The bilateral external otitis 3. Bilateral TMJ History of Present Illness: Elsa Browne is a 39 y.o. female with a history of a liver transplant. She is also under the care of a customer marketing assistant in [facility] period she comes in today complaining of bilateral ear drainage. She states the right ear is worse than the left. She states that she has pain at times. She admits to pressure and fullness at times. She denies any ringing or any dizziness. She denies any fitzpatrick e in her hearing. She states that she has had tubes in her past that Would had to remove. She states that she has had several issues to the years with her ears with mainly of fungal infections. She says she normally takes Ciprodex and is usually calm the down for couple weeks but that comes back. She states that she is on auto immune drugs for her liver transplant. Plan: I discussed with her at length that the left ear looks fine today. The right ear has some slight edema to with no redness. We will start prednisolone drops to the bilateral ears 5 drops b.i.d. For itching. We will also send in some topical court to apply to the bilateral ears b.i.d. For the next 7-10 days. Then a will be on an as-needed basis. I discussed with her at length today that if she has a ny ear infection that she needs to come into the office to be seen with the active ear infection. Patient may call the office ifany issues [...] inspection reveals no scars, lesions, or masses. No preauricular or postauricular lymphadenopathy, mastoid tenderness [...] are grossly intact. Facial sensation is equal. BINOCULAR MICROSCOPY: Patient was placed in the supine position. The left tympanic membrane appearsto be intact. Middle air space appears to be well aerated without retractions or effusions noted. The left external auditory canal has some slight flaking to the inferior part of the canal. The righttympanic membrane appears to be intact. There are no retractions effusions noted in the middle air space appears to be well aerated. The right external auditory canal is slightly edematous with no redness or no drainage today. There is some flaking at the inferior part of the canal. AUDIOGRAM/TYMPANOGRAM audiograms today shows normal hearing through all le. The right ear has an SRT of 15 with a 100% speech discrimination. The left ear has an SRT of 10 with a 100% speech discrimination. Tympanogram shows type A tymps with normal volumes. Teofilo Willard DNP, ELECTRONIC SCIENCE TEACHER, HOT MILL TIN ROLLER-BC Vitals, Current Meds & Allergies: Vitals: 12/16/19 1003 Pulse: 66 SpO2: 99% Weight: 170 lb (77.1 kg) Body surface area is 1.84 meters squared. Body mass index is 31.09 kg/m??. Outpatient Encounter Medications as of 12/16/2019 Medication Sig Dispense Refill ??? butorphanol (STADOL) 10 MG/ML Solution 1 [facility] by Nasal route every 4 hours as needed. Indications: Migraine Headache ??? OMEPRAZOLE PO Take 20 mg by mouth as needed. ??? promethazine (PHENERGAN) 25 MG Tablet Take [...] facility-administered encounter medications on file as of 12/16/2019. Allergies Allergen Reactions ??? Aspirin Anaphylaxis counteracts [...] 01/10/2018 Procedure: LASER ABLATION CONDYLOMA GENITAL AREA (#[id number]); Surgeon: Umesh Washington MD; Location: [facility] OR; Service: Obstetrics Gynecology ??? ENDOMETRIAL ABLATION ??? FINGER NAIL SURGERY Right 02/21/2018 Procedure: RIGHT LONG FINGER NAIL BED PARTIAL ABLATION; Surgeon: Johnson Hernandez MD; Location: [facility]; Service: Orthopaedic ??? FINGER NAIL SURGERY Right 09/14/2018 Procedure: RIGHT THUMB ANDLONG FINGER PARTIAL NAILBED ABLATION; Surgeon: Johnson Hernandez MD; Location: [facility]; Service: Orthopaedic ??? INGUINAL HERNIA REPAIR [...] Father Cosigned by Eliceo Craft MD at 12/17/2019 10:51 AM CDT documented in this encounter Plan of Treatment Scheduled Orders Name Type Priority Associated Diagnoses Orde r Schedule BINOCULAR MICROSCOPY SEPARATE PROCEDURE AR Charge Routine Eczema of external ear, bilateral Chronic otitis externa of right ear, unspecified type TMJ (temporomandibular joint syndrome) Ordered: 12/16/2019 documented as of this encounter Visit Diagnoses Diagnosis Eczema of external ear, bilateral- Primary Chronic otitis externa of right ear, unspecified type TMJ (temporomandibular joint syndrome) Temporomandibular joint disorders, unspecified documented in this encounter Additional Health Concerns Assessment Noted Time PHQ-9 Depression Total Score: 0 05/09/19 19 3:00 PM AUTOMATIC PRESSER documented as of this encounter Care Teams First Breaker Feeder Relationship Specialty Start Date End Date eHrmes Ramirez MD [address] [place] [id number] PCP - General Family Medicine 05/09/18 documented as of this encounter
--- OUTSIDE RECORDS SUMMARY | 2024-03-20 14:07 | XMS_ITS | Encounter Summary ---
Author Organization [facility] Address [address] [place] [address] Phone Care Team Providers Care Training Officer Name Role Phone Hermes Ramirez MD Primary Care Provider [phone] Encounter Details Date Type Department Care Team (Latest Contact Info) Description 12/16/2019 10:15 AM CDT Audiology Tech Visit [facility] [address] [place] [address] Audiology, [place] History of recurrent [...] AM CDT documented as of this encounter Progress Notes * Lenora Acuña AUD - 12/16/2019 10:15 AM CDT Audiogram and Tympanometry completed due to recurrent ear infections. Requested by Shashi Willard CNP. Modifier used = 52 did not test bone conduction. documented in this encounter Plan of Treatment Not on file documented as of this encounter Procedures Procedure Name Priority Date/Time Associated Diagnosis Comments AUDIOLOGY PROCEDURE Routine 12/16/2019 History of recurrent ear infection Hearing exam without abnormal findings documented in this encounter Results * AUDIOLOGY PROCEDURE (12/16/2019) Teofilo Willard APRN, CITY MAGISTRATE GEN ORDERS Fi nal Result documented in this encounter Visit Diagnoses Diagnosis History of recurrent ear infection- Primary Hearing exam without abnormal findings documented in this encounter Additional Health Concerns Assessment Noted Time PHQ-9 Depression Total Score: 0 05/09/19 19 3:00 PM AIRCRAFT TECHNICIAN documented as of this encounter Care Teams Training Officer Relationship Specialty Start Date End Date Hermes Ramirez MD [address] [facility] [address] [place] [address] PCP - General Family Medicine 05/09/18 documented as of this encounter
--- OUTSIDE RECORDS SUMMARY | 2024-03-20 14:09 | XMS_ITS | Continuity of Care Document ---
Author Organization [facility] Address [address] [place] [address] Phone Care Team Providers Care Bioinformatician Name Role Phone Santana Timmons MD Unavailable Unavailable Procedures Procedure Date Subsequent Hospital Care Initial Inpatient Consult Advance Directives Directive Yes / No Effective Date File Name No Information Encounters Encounter Description Practice Location Reason(s) For Visit Diagnoses Date Provider Providers Copied on Encounter Subsequent Hospital Care [facility], [address] [place] [address], [id number], tel:[phone] [facility] No Information 1 Shanelle Dillon. [address] [place] [address], [id number], [place]. tel:[phone] Referring Provider: Hermes Ramirez , [address] [place] [address], [id number]. tel:[phone] Initial Inpatient Consult [facility], [address] [place] [address], [id number], tel:[phone] [facility] No Information Shanelle Dillon. [address] [place] [address], [id number], . tel:[phone] Referring Provider: Hermes Ramirez [address], [address]. tel:[phone] Family History Family Member Type Diagnosis Age At Onset No Information Payers Payer name Insurance type Covered constitution party ID Authoriza tiyoan(s) [facility] [id number] Social History Type Description Quantity Date Captured Comments Sex Female Smoking Status No Information Chief Complaint And Reason For Visit No Information History Of Present Illness Encounter Date Complaint History Of Prese nt Illness No Information Instructions Date Instruction Additional Infor mation No Information Assessments Type Assessment Date No Information
--- OUTSIDE RECORDS SUMMARY | 2024-03-20 16:34 | XMS_ITS | Encounter Summary ---
Author Organization [facility] Address [address] [place] [address]. [place] [address] [place] [address] Care Team Providers Care Cooker Helper Name Role Phone Ashley ZUNIGA MD, Hermes Perez Primary Care Provid er Encounter Details Date Type Department Care Team (Late st Contact Info) Description 02/22/2024 Hospital Follow-up Call [facility] Cardi[facility] Care Unit [address] [place] [address] Zulma Ardon, RN Social History [...] any time in the past 12 m [facility], were you homeless or living in a long-term (including now)? 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 Answer Entry Date Author Status No 02/20/2024 4:08 AM AGRICULTURE SCIENTIST Kimmy Hayes RN Active documented in this encounter Plan of Treatment Not on file documented as of this encounter Visit Diagnoses Not on filedocumented in this encounter Additional Health Concerns Infection Onset Date Last Indicated Resolved Time Rhinovirus 02/16/2024 02/16/2024 02/26/2024 12:3 2 AM AGRICULTURE SCIENTIST documented as of this encounter Care Teams Cooker Helper Relationship Specialty Start Date End Date Hermes Ramirez III, MD [address] [facility] [address] [place] [address] PCP - General FAMILY PRACTICE 06/20/17 documented as of this encounter
--- OUTSIDE RECORDS SUMMARY | 2024-03-20 16:34 | XMS_ITS | Clinical Summary ---
Author Organization [facility] Address [address] [place] [address]. [place], [place] [id number] [place] [address] Care Team Providers Care Construction Management Assistant Name Role Phone Ashley ZUNIGA MD, Sherry [...] Problem Noted Date Diagnosed Date Acute CHF ([facility]) 02/20/2024 Viral infection 02/20/2024 Rectus sheath hematoma, initial encounter 2017 Cervical dysplasia 10/26/2016 History of vulvar dysplasia 10/26/2016 Gastric ulcer 10/24/2016 Pancreatitis ([facility]) 10/24/2016 Chronic kidney disease 10/24/2016 Anemia, unspecified 05/04/2012 Benign gestational thrombocytopenia ([facility]) 01/04/2012 History of cone biopsy of cervix 01/04/2012 History of liver transplant ([facility]) Acute pharyngitis 11/19/2010 Abdominal pain 11/13/2010 Aphthous ulcer 11/01/2010 Anxiety 07/21/2010 Encounters Date Type Department Care Team Description 02/22/2024 Hospital Follow-up Call [facility] [address] [place] [address] Zulma Ardon RN 02/19/2024 10:00 PM METAL BONDING WORKER - 02/20/2024 9:33 AM METAL BONDING WORKER Emergency [facility] [address] [place] [address] Eric Marques MD Wali, Neehal, MD Cough Discharge Disposition: Left Against Medical Advice 02/19/2024 Travel 02/16/2024 7:49 PM METAL BONDING WORKER - 02/16/2024 11:28 PM [facility] Emergency [address] [address] Tejas Weiss DNP Shortness Of Breath Discharge Disposition: Home or Self Care (Routine Discharge) 02/16/2024 Travel 02/14/2024 2:16 PM METAL BONDING WORKER - 02/14/2024 5:[address] [address] Trae Denton MD Shortness Of Breath Discharge Disposition: Home or Self Care (Routine Discharge) 02/14/2024 Travel 02/12/2024 12:14 PM METAL BONDING WORKER - 02/12/2024 5:[address] [address] Maria Isabel Owens NP Headache; Shortness Of Breath ; Generalized Body Aches Discharge Disposition: Home or Self Care (Routine Discharge) 02/12/2024 Travel 02/10/2024 3:24 PM METAL BONDING WORKER - 02/10/2024 9:[address] [address] Danish Menjivar MD Shortness Of Breath Discharge Disposition: Home or Self Care (Routine Discharge) 02/10/2024 Travel 12/22/2023 12:12 PM CDT - 12/22/2023 3:[address] [address] Maria Isabel Owens NP Fall; Back Pain; [...] any time in the past 12 [facility], were you homeless or living in a correction (including now)? No 02/20/2024 Comments No Sex and Gender Information Value Date Recorded Sex Assigned at Not on file Legal Sex Female 9:15 PM METAL BONDING WORKER Gender Identity Not on file Sexual Orientation Not on file Last Filed Vital Signs Vital Sign Reading Time Taken Comments Blood Pressure 125/84 02/20/2024 8:23 AM METAL BONDING WORKER Pulse 67 02/20/2024 8:23 AM METAL BONDING WORKER Temperature 36.3 ??C (97.4 ??F) 02/20/2024 3:29 AM CS T Respiratory Rate 22 02/20/2024 3:29 AM METAL BONDING WORKER Oxygen Saturation 96% 02/20/2024 8:23 AM METAL BONDING WORKER Inhaled Oxygen Concentration - - Weight 88.8 kg (195 lb 12.3 oz) 02/20/2024 3:29 AM METAL BONDING WORKER Height 157.5 cm (5' 2 ) 02/19/2024 7:21 PM METAL BONDING WORKER Body Mass Index 35.81 02/19/2024 7:21 PM METAL BONDING WORKER Plan of Treatment Health Maintenance Due Date [...] Comments TROPONIN, QUANT STAT 02/20/2024 12:16 AM METAL BONDING WORKER PRO-BRAIN NATRIURETIC PEPTIDE STAT 02/20/2024 12:16 AM METAL BONDING WORKER BASIC METABOLIC PANEL STAT 02/19/2024 8:08 PM METAL BONDING WORKER CBC W/DIFF AUTOMATED STAT 02/19/2024 8:08 PM METAL BONDING WORKER XR CHEST PA+LAT STAT 02/19/2024 7:39 PM METAL BONDING WORKER HETEROPHILE ANTIBODIES,SCREEN STAT 02/16/2024 9:52 PM METAL BONDING WORKER COMPREHENSIVE METABOLIC PANEL STAT 02/16/2024 9:52 PM METAL BONDING WORKER CBC W/DIFF AUTOMATED STAT 02/16/2024 9:52 PM METAL BONDING WORKER XR CHEST PORTABLE STAT 02/16/2024 8:4 6 PM METAL BONDING WORKER STREP A RAPID Nurse Collected Priority 02/16/2024 8:11 PM METAL BONDING WORKER RESPIRATORY PCR PANEL 2 Nurse Collected Priority 02/16/2024 8:11 [address] CHEST WO CON STAT 02/14/2024 4:52 PM METAL BONDING WORKER XR CHEST PA+LAT STAT 02/14/2024 3:00 PM METAL BONDING WORKER HCG QUANT (SERUM)-CHORIONIC GONADOTROPIN STAT 02/14/2024 2:43 PM METAL BONDING WORKER PRO-BRAIN NATRIURETIC PEPTIDE STAT 02/14/2024 2:43 PM METAL BONDING WORKER TROPONIN, QUANT STAT 02/14/2024 2:43 PM METAL BONDING WORKER BASIC METABOLIC PANEL STAT 02/14/2024 2:43 PM METAL BONDING WORKER CBC W/DIFF AUTOMATED STAT 02/14/2024 2:43 PM METAL BONDING WORKER ECG 12-LEAD STAT 02/12/2024 3:41 PM METAL BONDING WORKER TROPONIN, QUANT STAT 02/12/2024 2:53 PM METAL BONDING WORKER PRO-BRAIN NATRIURETIC PEPTIDE STAT 02/12/2024 2:53 PM METAL BONDING WORKER LACTIC ACID TIMED 02/12/2024 2:53 PM METAL BONDING WORKER COMPREHENSIVE METABOLIC PANEL STAT 02/12/2024 2:53 PM METAL BONDING WORKER CBC W/DIFF AUTOMATED STAT 02/12/2024 2:53 PM METAL BONDING WORKER NM LUNG SCAN VENT+PERF STAT 02/12/2024 2:[address] CHEST WO CON STAT 02/12/2024 1:14 PM METAL BONDING WORKER LACTIC ACID W REFLEX (SEPSIS) TIMED 02/10/2024 7:53 PM METAL BONDING WORKER LACTIC ACID W REFLEX (SEPSIS) STAT 02/10/2024 4:12 PM METAL BONDING WORKER BASIC METABOLIC PANEL STAT 02/10/2024 4:12 PM METAL BONDING WORKER CBC W/DIFF AUTOMATED STAT 02/10/2024 4:12 PM METAL BONDING WORKER CULTURE, BACTERIA, BLOOD STAT 02/10/2024 4:11 PM METAL BONDING WORKER XR CHEST PORTABLE STAT 02/10/2024 4:0 [address] THOR SPINE WO CON STAT 12/22/2023 [...] (ABNORMAL) PRO-BRAIN NATRIURETIC PEPTIDE (02/20/2024 12:16 AM METAL BONDING WORKER) Only the most recent of3 resultswithin the time period is included. PRO-B TYPE NATRIURETIC PEPTIDE 952(H) <125 PG/ML 02/20/2024 12:48 AM METAL BONDING WORKER [facility] Comment: AGE INDEPENDENT: <300 PG/ML [...] FOR ACUTE CHF. 02/20/2024 12:1 6 AM METAL BONDING WORKER Ziyad EDMOND LABORATORY Final Resul t Performing Organization Address [facility] Co de Phone Number [facility] [address] [place] [address], [phone] * TROPONIN, QUANT (02/20/2024 12:16 AM METAL BONDING WORKER) Only the most recent of3 resultswithin the time period is included. TROPONIN I HIGH SENSITIVITY 7 0 - 53 ng/L 02/20/2024 1:34 AM METAL BONDING WORKER [facility] 02/20/2024 12:1 6 AM METAL BONDING WORKER Ziyad EDMOND LABORATORY Final Resul t Performing Organization Address City/[facility] Co de Phone Number [facility] [address] [place] [address], [phone] * (ABNORMAL) BASIC METABOLIC PANEL (02/19/2024 8:08 PM METAL BONDING WORKER) Only the most recent of3 resultswithin the time period is included. SODIUM S/P/B 141 136 - 145 MMOL/L 02/19/2024 9:02 PM [facility] POTASSIUM S/P/B 4.6 3.5 - 5.1 MMOL/L 02/19/2024 9:02 PM [facility] CHLORIDE S/P/B 114 97 - 115 MMOL/L 02/19/2024 9:02 PM [facility] CO2 21.4 21.0 - 32.0 MMOL/L 02/19/2024 9:02 PM [facility] GLUCOSE 122(H) 74 - 106 MG/DL 02/19/2024 9:02 PM [facility] BUN 29(H) 7 - 18 MG/DL 02/19/2024 9:02 PM [facility] CREATININE S/P/B 1.64(H) 0.55 - 1.02 MG/DL 02/19/2024 9:02 PM [facility] CALCIUM S/P/B 9.1 8.5 - 10.1 MG/DL 02/19/2024 9:02 PM [facility] ANION GAP 5.6 2.0 - 10.0 MMOL/L 02/19/2024 9:02 PM [facility] OSMOLALITY (CALC) 299 MOSM/KG 024 9:02 PM [facility] Comment:REFERENCE RANGE NOT ESTABLISHED GFR ESTIMATE 40(L) >90 ML/MIN/1. 73 M2 02/19/2024 9:02 PM [facility] GFR NOTES GFR REFERENCE S: 02/19/2024 9:02 PM [facility] Comment: THE ESTIMATED GFR IS [...] FAILURE: <15 ml/min/1.73 m2 02/19/2024 8:08 PM METAL BONDING WORKER us Huong Farris NP LABORATORY Final R esult [facility] [address] [place] [address], [place] [phone] * (ABNORMAL) CBC W/DIFF AUTOMATED (02/19/2024 8:08 PM METAL BONDING WORKER) Only the most recent of5 resultswithin the time period is included. WBC 8.66 4.00 - 10.80 x10'3/uL 02/19/2024 8:37 PM METAL BONDING WORKER [facility] RBC 4.01(L) 4.10 - 5.40 x10'6/uL 02/19/2024 8:37 PM METAL BONDING WORKER [facility] HGB 14.1 12.0 - 16.0 G/DL 02/19/2024 8:37 PM METAL BONDING WORKER [facility] HCT 43.0 36.0 - 47.0 % 02/19/2024 8:37 PM METAL BONDING WORKER [facility] MCV 107.2(H) 78.0 - 100.0 FL 02/19/2024 8:37 PM METAL BONDING WORKER [facility] MCH 35.2(H) 27.0 - 31.0 PG 02/19/2024 8:37 PM METAL BONDING WORKER [facility] MCHC 32.8(L) 33.0 - 36.0 G/DL 02/19/2024 8:37 PM [facility] RDW 13.7 11.5 - 14.5 % 02/19/2024 8:37 PM [facility] PLT 166 150 - 350 x10'3/uL 02/19/2024 8:37 PM [facility] MPV 10.5(H) 7.4 - 10.4 FL 02/19/2024 8:37 PM [facility] DIFFERENTIAL TYPE AUTOMATED DIFFERENTIAL 02/19/2024 8:37 PM METAL BONDING WORKER [facility] SEG NEUTROPHILS 75.8 % 8:37 PM [facility] LYMPHOCYTES 16.5 % 02/19/2024 8:37 PM [facility] MONOCYTES 5.3 % 02/19/2024 8:37 PM [facility] EOSINOPHILS 1.5 % 02/19/2024 8:37 PM [facility] BASOPHILS 0.2 % 02/19/2024 8:37 PM [facility] IMMATURE GRANS % 0.7 % 02/19/20 8:37 PM [facility] ABS. NEUTROPHILS 6.56 1.60 - 8.30 x10'3/uL 02/19/2024 8:37 PM [facility] ABS. LYMPHOCYTES 1.43 0.80 - 4.70 x10'3/uL 02/19/2024 8:37 PM METAL BONDING WORKER [facility] ABS. MONOCYTES 0.46 0.00 - 1.50 x10'3/uL 02/19/2024 8:37 PM METAL BONDING WORKER [facility] ABS. EOSINOPHILS 0.13 0.00 - 0.40 x10'3/uL 02/19/2024 8:37 PM [facility] ABS. BASOPHILS 0.02 0.00 - 0.20 x10'3/uL 02/19/2024 8:37 PM [facility] ABS. IMMATURE GRANULOCYTES 0.06(H) 0.00 - 0.03 x10'3/uL 02/19/2024 8:37 PM METAL BONDING WORKER [facility] ABS. NUCLEATED RBC'S 0.00 0.00 - 0.01 x10'3/uL 02/19/2024 8:37 PM METAL BONDING WORKER [facility] NRBC % 0.0 % 02/19/2024 8:37 PM METAL BONDING WORKER [facility] 02/19/2024 8:08 PM METAL BONDING WORKER us Huong Farris C SOFTWARE DEVELOPER LABORATORY Final R esult [facility] [address] [place] [address], [phone] * XR CHEST PA+LAT (02/19/2024 7:39 PM METAL BONDING WORKER) Only the most recent of2 resultswithin the time period is included. Anatomical Region Laterality Modality Chest Radiographic Katy ging 02/19/2024 7:58 PM METAL BONDING WORKER Impressions 02/19/2024 7:59 PM METAL BONDING WORKER IMPRESSION: 1. ??CARDIOMEGALY WITHOUT EVIDENCE OF CHF. Signed: Mike Donnelly MD Referred By: ?? Interpreted By: Mike Donnelly MD, 02/19/2024 7:58 PM Narrative 02/19/2024 7:59 PM METAL BONDING WORKER [facility] [address] [place], [place] [address] PATIENT NAME: MISHA BROWNE EXAM: Chest 2 view DATE OF EXAM: 02/19/2024 COMPARISON EXAM: 02/16/2024 INDICATION: Recent pneumonia, short of breath TECHNIQUE: PA and lateral FINDINGS: Mild cardiomegaly. ??Pulmonary vasculature does not appear significantly congested. ??No significant acute pulmonary parenchymal opacity. ??No pleural effusion. ??No hyperinflation. Procedure Note Mike Donnelly MD - 02/19/[address] [address] PATIENT NAME: MISHA BROWNE EXAM: Chest 2 [...] (ABNORMAL) COMPREHENSIVE METABOLIC PANEL (02/16/2024 9:52 PM METAL BONDING WORKER) Only the most recent of2 resultswithin the time period is included. SODIUM S/P/B 140 136 - 145 MMOL/L 02/16/2024 10:10 PM METAL BONDING WORKER [facility] POTASSIUM S/P/B 4.7 3.5 - 5.1 MMOL/L 02/16/2024 10:10 PM [facility] Comment:SLIGHT HEMOLYSIS, RE SULT MAY BE AFFECTED. CHLORIDE S/P/B 114 97 - 115 MMOL/L 02/16/2024 10:10 PM METAL BONDING WORKER [facility] CO2 20.3(L) 21.0 - 32.0 MMOL/L 02/16/2024 10:10 PM METAL BONDING WORKER [facility] GLUCOSE 93 74 - 106 MG/DL 02/16/2024 10:10 PM [facility] BUN 22(H) 7 - 18 MG/DL 02/16/2024 10:10 PM [facility] CREATININE S/P/B 1.55(H) 0.55 - 1.02 MG/DL 02/16/2024 10:10 PM [facility] CALCIUM S/P/B 9.1 8.5 - 10.1 MG/DL 02/16/2024 10:10 PM [facility] BILIRUBIN TOTAL S/P/B 0.7 0.2 - 1.0 MG/DL 02/16/2024 10:10 PM [facility] ALKALINE PHOSPHATASE S/P/B 307(H) 37 - 98 U/L 02/16/2024 10:10 PM [facility] AST 32 15 - 37 U/L 02/16/2024 10:10 PM [facility] ALT 50 13 - 56 U/L 02/16/2024 10:10 PM [facility] TOTAL PROTEIN S/P/B 6.9 6.4 - 8.2 G/DL 02/16/2024 10:10 PM [facility] ALBUMIN S/P/B 3.3(L) 3.4 - 5.0 G/DL 02/16/2024 10:10 PM [facility] ANION GAP 5.7 2.0 - 10.0 MMOL/L 02/16/2024 10:10 PM [facility] OSMOLALITY (CALC) 293 MOSM/KG 024 10:10 PM [facility] Comment:REFERENCE RANGE NOT ESTABLISHED GFR ESTIMATE 43(L) >90 ML/MIN/1. 73 M2 02/16/2024 10:10 PM [facility] GFR NOTES GFR REFERENCE S: 02/16/2024 10:10 PM [facility] Comment: THE ESTIMATED GFR IS [...] FAILURE: <15 ml/min/1.73 m2 02/16/2024 9:52 PM METAL BONDING WORKER Tejas Weiss DNP LABORATORY Final Resul t Performing Organization Address [facility] [[email or web address]] de Phone Number [facility] [address] [place] [address], [place] [phone] * HETEROPHILE ANTIBODIES,SCREEN (02/16/2024 9:52 PM METAL BONDING WORKER) MONO TEST NEGATIVE NEGATIVE 02/16/2024 10:09 PM METAL BONDING WORKER [facility] 02/16/2024 9:52 PM METAL BONDING WORKER Tejas Weiss DNP LABORATORY Final Resul t Performing Organization Address [facility] [[email or web address]] de Phone Number [facility] [address] [place] [address], [place] [phone] * XR CHEST PORTABLE (02/16/2024 8:46 PM METAL BONDING WORKER) Only the most recent of2 resultswithin the time period is included. Anatomical Region Laterality Modality Chest Radiographic Katy ging 02/16/2024 9:06 PM METAL BONDING WORKER Impressions 02/16/2024 9:59 PM METAL BONDING WORKER IMPRESSION: No significant interval change, as detailed above. The attending radiologist has reviewed the image(s) and agrees with the content of this report. Ordered By: TEJAS WEISS Interpreted By: So Patel MD, 02/16/2024 9:06 PM Narrative 02/16/2024 9:59 PM METAL BONDING WORKER [address] [address] EXAM: CHEST RADIOGRAPH Exam Date: 02/16/2024 7:49 [...] Procedure Note Marisa Francisco MD - 02/16/[address] [address] EXAM: CHEST RADIOGRAPH Exam Date: 02/16/2024 7:49 [...] (RESPIRATORY PCR PANEL 2) (02/16/2024 8:11 PM METAL BONDING WORKER) ADENOVIRUS PCR (RESP) NOT DETECTED NOT DETECTED 02/16/2024 9:16 PM METAL BONDING WORKER [facility] CORONAVIRUS 229E PCR (RESP) NOT DETECTED NOT DETECTED 02/16/2024 9:16 PM METAL BONDING WORKER [facility] CORONAVIRUS HKU1 PCR (RESP) NOT DETECTED NOT DETECTED 02/16/2024 9:16 PM METAL BONDING WORKER [facility] CORONAVIRUS NL63 PCR (RESP) NOT DETECTED NOT DETECTED 02/16/2024 9:16 PM METAL BONDING WORKER [facility] CORONAVIRUS OC43 PCR (RESP) NOT DETECTED NOT DETECTED 02/16/2024 9:16 PM METAL BONDING WORKER [facility] METAPNEUMOVIRUS PCR (RESP) NOT DETECTED NOT DETECTED 02/16/2024 9:16 PM METAL BONDING WORKER [facility] RHINOVIRUS/ENTEROV IRUS PCR (RESP) DETECTED(AA ) NOT DETECTED 02/16/2024 9:16 PM METAL BONDING WORKER [facility] Comment: RESULTS PHONED TO AND READ BACK BY: MARIJA [id number]) ANSON IN ED 02/16 2116 TLV INFLUENZA A PCR (RESP) NOT DETECTED NOT DETECTED 02/16/2024 9:16 PM METAL BONDING WORKER [facility] INFLUENZA B PCR (RESP) NOT DETECTED NOT DETECTED 02/16/2024 9:16 PM METAL BONDING WORKER [facility] PARAINFLUENZA 1 PCR (RESP) NOT DETECTED NOT DETECTED 02/16/2024 9:16 PM METAL BONDING WORKER [facility] PARAINFLUENZA 2 PCR (RESP) NOT DETECTED NOT DETECTED 02/16/2024 9:16 PM METAL BONDING WORKER [facility] PARAINFLUENZA 3 PCR (RESP) NOT DETECTED NOT DETECTED 02/16/2024 9:16 PM METAL BONDING WORKER [facility] PARAINFLUENZA 4 PCR (RESP) NOT DETECTED NOT DETECTED 02/16/2024 9:16 PM METAL BONDING WORKER [facility] RSV PCR (RESP) NOT DETECTED NOT DETECTED 02/16/2024 9:16 PM METAL BONDING WORKER [facility] B PARAPERTUSIS PCR (RESP) NOT DETECTED NOT DETECTED 02/16/2024 9:16 PM METAL BONDING WORKER [facility] BORDETELLA PERTUSSIS PCR (RESP) NOT DETECTED NOT DETECTED 02/16/2024 9:16 PM METAL BONDING WORKER [facility] CHLAMYDOPHILA PNEUMONIAE PCR (RESP) NOT DETECTED NOT DETECTED 02/16/2024 9:16 PM METAL BONDING WORKER [facility] MYCOPLASMA PNEUMONIAE PCR (RESP) NOT DETECTED NOT DETECTED 02/16/2024 9:16 PM METAL BONDING WORKER [facility] CORONAVIRUS SARS COV 2 PCR (RESP) NOT DETECTED NOT DETECTED 02/16/2024 9:16 PM METAL BONDING WORKER [facility] NASOPHARYNGEAL SWAB / Unknown 02/16/2024 8:11 PM METAL BONDING WORKER us Tejas Weiss DNP MICROBIOLOGY - [facility]AL OR[facility] Final Result Performing Organization Address City/[facility]/ZIP Co de Phone Number [facility] [address] [place] [address], [place] [phone] * STREP A RAPID (02/16/2024 8:11 PM METAL BONDING WORKER) SPECIMEN SOURCE THROAT 02/16/2024 8:11 PM METAL BONDING WORKER [facility] RAPID STREP TEST NEGATIVE NEGATIVE 02/16/2024 8:33 PM METAL BONDING WORKER [facility] Comment:NEGATIVE FOR GROUP A BETA STREP ANTIGEN STRUCTURE OF ANTERIOR PORTION OF NECK / Unknown 02/16/2024 8:11 PM METAL BONDING WORKER us Tejas Weiss DNP MICROBIOLOGY - GENERAL ORDE RABVERONICA Final Result Performing Organization Address [facility]/ZIP Co de Phone Number [facility] [address] [place] [address], [place] [phone] * CT CHEST WO CON (02/14/2024 4:52 PM METAL BONDING WORKER) Only the most recent of2 resultswithin the time period is included. Anatomical Region Laterality Modality Chest Computed Tomogra phy 02/14/2024 4:57 PM METAL BONDING WORKER Impressions 02/14/2024 5:04 PM METAL BONDING WORKER Impression: 1. Improved pulmonary opacities since the [...] 02/14/2024 4:57 PM Narrative 02/14/2024 5:04 PM METAL BONDING WORKER [address] [address] Examination: CT CHEST WO CON Clinical Information: [...] thickening, or calcification. UPPER ABDOMEN The visualized [place] kidneys appear atrophic. Prominent vascular structures in the left upper quadrant, potentially varices. BONES/SOFT TISSUES No significant lesion. Procedure Note Gabriel Alberto MD - 02/14/[address] [place], [place] [address] Examination: CT CHEST WO CON Clinical Information: [...] thickening, or calcification. UPPER ABDOMEN The visualized [place] kidneys appear atrophic. Prominent vascularstructures in the [...] - CHORIONIC GONADOTROPIN () (02/14/2024 2:43 PM METAL BONDING WORKER) HCG QUANTITATIVE <1 MIU/ML 02/14/20 24 3:42 PM METAL BONDING WORKER [facility] Comment: <5 IS NEGATIVE 5-25 IS BORDERLINE >25 IS POSITIVE ASSAY PERFORMED BY CHEMILUMINESCENCE METHODOLOGY USING SIEMENS [employer] [place] [facility] [facility]. PATIENT RESULTS DETERMINED BY ASSAYS USING DIFFERENT MANUFACTURERS FOR METHODS MAY NOT BE COMPARABLE. 02/14/2024 2:43 PM METAL BONDING WORKER us Randy Diamond MD LABORATORY Final Result [facility] [address] [place] [address], [phone] * ECG 12 lead (02/12/2024 3:41 PM METAL BONDING WORKER) 02/12/2024 3:41 PM METAL BONDING WORKER Narrative [facility] - 02/13/2024 3:58 AM METAL BONDING WORKER ?SJS-ED ? Test Date: ?2024-02-12 Pat Name: ? MISHA BROWNE ?Department: ?? 70 ? Room: ? [id number] Gender: ? Female ? Telescope Operator: ?? : ?1980 ? Requested By: MARIA ISABEL OWENS Order Number: [id number] ? Reading MD: ?? Bernard Mario ? Measurements Intervals ?[place] ? Rate: ? 109 ?P: ?140 MI: ? 177 ?QRS: ?-12 QRSD: ? 74 ? T: ?80 QT: ? 338 ? QTc: ?455 ? Interpretive Statements ECTOPIC ATRIAL TACHYCARDIA LEFT ATRIAL ENLARGEMENT ??[-0.15mV P-WAVE IN V1/V2] LOW QRS VOLTAGE IN PRECORDIAL LEADS ??[QRS DEFLECTION < 1.0 mV IN CHEST LEADS] ANTEROSEPTAL MYOCARDIAL INFARCTION , OF INDETERMINATE AGE [40+ ms Q WAVE IN V1-V4] L BONDING WORKER Procedure Note Bernard Martin MD - 02/13/2024 [facility] Test Date: 2024-02-12 Pat Name: MISHA BROWNE Department: 70 Room: [id number] Gender: Female Telescope Operator: : 1980 Requested By: MARIA ISABEL OWENS Order Number: [id number] Florencia MD: Bernard Martin Measurements Intervals [place] Rate: 109 P: 140 MI: 177 QRS: -12 QRSD: 74 T: 80 QT: 338 QTc: 455 Interpretive Statements ECTOPIC ATRIAL TACHYCARDIA LEFT ATRIAL ENLARGEMENT [-0.15mV P-WAVE IN V1/V2] LOW QRS VOLTAGE IN PRECORDIAL LEADS [QRS DEFLECTION < 1.0 mV IN CHESTLEADS] ANTEROSEPTAL MYOCARDIAL INFARCTION , OF INDETERMINATE AGE [40+ ms Q WAVEIN V1-V4] L BONDING WORKER Maria Isabel Owens C SOFTWARE DEVELOPER ECG ORDERABLES Final Resul t Performing Organization Address [facility] Co de Phone Number [facility] * LACTIC ACID - SINGLE (02/12/2024 2:53 PM METAL BONDING WORKER) LACTIC ACID VENOUS 0.8 0.4 - 2.0 MMOL/L 02/12/2024 3:22 PM METAL BONDING WORKER [facility] 02/12/2024 2:53 PM METAL BONDING WORKER Maria Isabel Owens C SOFTWARE DEVELOPER LABORATORY Final Resul t Performing Organization Address [facility] [[email or web address]] de Phone Number [facility] [address] [place] [address], [place] [phone] * NM LUNG SCAN VENT+PERF (02/12/2024 2:11 PM METAL BONDING WORKER) Anatomical Region Laterality Modality Chest Nuclear Medicine 02/12/2024 2:13 PM METAL BONDING WORKER Impressions 02/12/2024 2:18 PM METAL BONDING WORKER IMPRESSION: Low probability for acute pulmonary embolism. Referred By: ?? Interpreted By: Shorty Ardon MD, 02/12/2024 2:13 PM Narrative 02/12/2024 2:18 PM METAL BONDING WORKER [place] [address] Ventilation-Perfusion Scintigraphy Exam Date: 02/12/2024. Indications: 43-year-old [...] Procedure Note Shorty Ardon MD - 02/12/[address] [address] Ventilation-Perfusion Scintigraphy Exam Date: 02/12/2024. Indications: 43-year-old [...] ACID W REFLEX (SEPSIS) (02/10/2024 7:53 PM METAL BONDING WORKER) Only the most recent of2 resultswithin the time period is included. LACTIC ACID VENOUS 1.4 0.4 - 2.0 MMOL/L 02/10/2024 8:29 PM METAL BONDING WORKER [facility] 02/10/2024 7:53 PM METAL BONDING WORKER us Danish Menjivar MD LABORATORY Final Result Performing Organization Address [facility] Co de Phone Number [facility] [address] [place] [address], [place] [phone] * BLOOD CULTURE #1 (02/10/2024 4:11 PM METAL BONDING WORKER) SPEC DESCRIPTION BLOOD 02/10/2024 3:47 PM METAL BONDING WORKER [facility] SPECIAL REQUESTS NO SPECIAL REQUEST 02/10/2024 3:47 PM METAL BONDING WORKER [facility] CULTURE RESULT NO GROWTH 5 DAYS 02/15/2024 8:22 PM METAL BONDING WORKER [facility] BLOOD SPECIMEN OBTAINED FOR BLOOD CULTURE / Unknown 02/10/2024 4:11 PM METAL BONDING WORKER 02/10/2024 4:12 PM METAL BONDING WORKER us Danish Menjivar MD MICROBIOLOGY - GENERAL ORDER KAREN Final Result Performing Organization Address [facility] Co de Phone Number [facility] [address] [place] [address], [place] [phone] * CT THOR SPINE WO CON (12/22/2023 1:32 PM CDT) Anatomical Region Laterality Modality Spine Computed Tomogra phy 12/22/2023 2:16 PM CDT Impressions 12/22/2023 2:19 PM CDT Impression: No evidence of acute fracture or traumatic malalignment of the thoracic spine. Ordered By: MARIA ISABEL OWENS Interpreted By: Marlys Jovel MD, 12/22/2023 2:16 PM Narrative 12/22/2023 2:19 PM CDT [facility] [address] [place], [place] [address] CT of the THORACIC SPINE without contrast. [...] Procedure Note Marlys Jovel MD - 12/22/[address] [address] [address] of the THORACIC SPINE without contrast. [...] appears to slightly narrow the spinal canal [id number] and to a lesser extent at T3-4 and T4-5. There is no severe bonyneural foraminal or spinal canal narrowing at any level. Limitednoncontrast images of the visualized soft tissues reveal no acuteappearing abnormality. Impression: No evidence of acute fracture or traumatic malalignment of the thoracicspine. Ordered By: MARIA ISABEL OWENS Interpreted By: Marlys Jovel MD, 12/22/2023 2:16 PM us Maria Isabel Owens C SOFTWARE DEVELOPER CT Final Resul t * CT LUMB [...] 2:20 PM Narrative 12/22/2023 2:30 PM CDT [address] [address] [address] of the LUMBAR SPINE without contrast. [...] Procedure Note Marlys Jovel MD - 12/22/[address] [address] [address] of the LUMBAR SPINE without contrast. [...] 12/22/2023 2:20 PM us Maria Isabel Owens C SOFTWARE DEVELOPER CT Final Resul t * XR KNEE JULITO 3V (12/22/2023 1:05 PM CDT) Anatomical Region Laterality Modality Knee Radiographic Katy ging 12/22/2023 1:15 PM CDT Impressions 12/22/2023 1:17 PM CDT IMPRESSION: No acute osseous abnormality identified. Referred By: ?? Interpreted By: Gabriel Alberto MD, 12/22/2023 1:15 PM Narrative 12/22/2023 1:17 PM CDT [address] [address] EXAMINATION: XR KNEE JULITO 3V HISTORY: BILATERAL KNEE PAIN AFTER FALL COMPARISON: No comparison. TECHNIQUE: 3 views of the bilateral knees. FINDINGS: No fracture or dislocation is seen bilaterally. Joint spaces are normal bilaterally. No destructive bone lesions. No joint effusion or soft tissue abnormality. Procedure Note Gabriel Alberto MD - 12/22/[address] [address] EXAMINATION: XR KNEE JULITO 3V HISTORY: BILATERAL [...] 1:15 PM Narrative 12/22/2023 1:18 PM CDT [facility] [address] [place], [place] [address] Examination: XR PELVIS 1 OR 2 VIEWS [...] Procedure Note Brown Marina DO - 12/22/[address] [address] Examination: XR PELVIS 1 OR 2 VIEWS [...] SPECIMEN CERVICAL/END OCERVICAL 06/22/2022 8:18 AM CDT [facility] HPV DNA HIGH RISK NEGATIVE NEGATIVE 06/22/2022 7:35 PM CDT [facility] Comment:SEE CYTOLOGY REPORT 06/20/2022 12:0 0 PM CDT us Sekou Bob MD PATHOLOGY/CYTOLOGY ORDER KAREN Final Result [facility] [address] [place] [address], * Cytopath Cerv/Vag Thin Layer (06/20/2022 7:46 AM CDT) THIN PREP PAP ? [facility] ?[address] ?[place] [address] ? Department of Pathology ? Pathology Report ? CERVICAL/VAGINAL PAP SMEAR REPORT Name: MISHA BROWNE ? Age: 7 1980 (Age: 41) ?Location: [facility] Sex: F ?Collected Date: 06/20/2022 Hospital #: [id number] ?Date Received: 06/22/2022 Date Reported: 06/24/2022 Provider: [...] and 68. 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 [facility] 06/20/2022 7:46 AM CDT 06/22/2022 7:46 AM CDT Comment:CERVICAL/ENDOCERVICA L us Sekou Bob MD PATHOLOGY/CYTOLOGY ORDER KAREN Final Result [facility] [address] [place] [address], from Last 3 Months or Most Recently Relevant to Health Maintenance Insurance C/O PROVIDER SERVICES [place] [id number] Advance Directives * Full Code (Latest Code Status on File) Date Activated Date Inactivated Comments 02/20/2024 1:27 AM 02/20/2024 11:44 AM * Full Code Date Activated Date Inactivated Comments 06/21/2017 12:22 AM 06/21/2017 8:16 PM Care Teams Construction Management Assistant Relationship Specialty Start Date End Date Sherry Ramirez III, MD [address] [facility] [address] [place] [address] PCP - General FAMILY PRACTICE 06/20/17
--- OUTSIDE RECORDS SUMMARY | 2024-03-20 16:34 | XMS_ITS | Encounter Summary ---
Author Organization [facility] Address [address] [place] [address]. [place], [place] [id number] [place] [address] Care Team Providers Care Emissions Technician Name Role Phone Ashley ZUNIGA MD, Hermes Perez Primary Care Provid er Reason for Visit * Reason Comments Shortness Of Breath Encounter Details Date Type Department Care Team (Late st Contact Info) Description 02/16/2024 7:49 PM BINGO CALLER - 02/16/2024 11:28 PM BINGO CALLER Emergency [facility] Emergency [address] [place] [address] Tejas Weiss, [address] [id number] Shortness Of Breath Discharge Disposition: Home or [...] on file Legal Sex Female 9:15 PM BINGO CALLER Gender Identity Not on file Sexual Orientation Not on file documented as of this encounter Last Filed Vital Signs Vital Sign Reading Time Taken Comments Blood Pressure 139/80 02/16/2024 7:34 PM BINGO CALLER Pulse 78 02/16/2024 11:00 PM BINGO CALLER Temperature 36.8 ??C (98.3 ??F) 02/16/2024 7:34 PM CS T Respiratory Rate 18 02/16/2024 11:0 0 PM BINGO CALLER Oxygen Saturation 95% 02/16/2024 11: 00 PM BINGO CALLER Inhaled Oxygen Concentration - - Weight 90.2 kg (198 lb 13.7 oz) 02/16/2024 7:34 PM BINGO CALLER Height 157.5 cm (5' 2 ) 02/16/2024 7:34 PM BINGO CALLER Body Mass Index 36.37 02/16/2024 7:34 PM BINGO CALLER documented in this encounter Discharge Instructions * Discharge Instructions* Tejas Weiss DNP - 02/16/2024 10:54 PM BINGO CALLER As discussed, please follow up with your provider tomorrow to determine appropriate pain management. Continue taking your steroids, antibiotics, and albuterol as needed. O CALLER O CALLER * Attachments The following attachments cannot be sent through Care Everywhere. * Acute Bronchitis Discharge Instructions, Adult (Cameroonian) documented in this encounter Medications at Time [...] tight from coughing. History provided by: Patient credit administration specialist used: No Medical History ALLERGIES: Review of [...] XR CHEST PORTABLE Final Result by User, [email or web address] (02/15 2200) [facility] [address] [place], [place] [address] EXAM: CHEST RADIOGRAPH Exam Date: 02/16/2024 7:49 [...] of Health Impacting Care: Patient currently sees [facility] for transplant services, but surgery was done at [place] Discussion of Management with Other Providers: Offered [...] Prasad Metcalf MD at 02/22/2024 12:48 AM BINGO CALLER O CALLER O CALLER * Irving Leonardo RN - 02/16/2024 7:26 PM CST Patient arrives via pov with complaints of shortness of breath. Patient was diagnosed with pneumonia and prescribed neb treatments, doxycyline, and amoxicillin. Last neb treatment around 1600 today. Patient endorses rib/back pain. O CALLER O CALLER documented in this encounter Plan of Treatment Not on file documented as of this encounter Procedures Procedure Name Priority Date/Time Associated Diagnosis Comments COMPREHENSIVE METABOLIC PANEL STAT 02/16/2024 9:52 PM BINGO CALLER HETEROPHILE ANTIBODIES,SCREEN STAT 02/16/2024 9:52 PM BINGO CALLER CBC W/DIFF AUTOMATED STAT 02/16/2024 9:52 PM BINGO CALLER XR CHEST PORTABLE STAT 02/16/2024 8:4 6 PM BINGO CALLER RESPIRATORY PCR PANEL 2 Nurse Collected Priority 02/16/2024 8:11 PM BINGO CALLER STREP A RAPID Nurse Collected Priority 02/16/2024 8:11 PM BINGO CALLER documented in this encounter Results * HETEROPHILE ANTIBODIES,SCREEN (02/16/2024 9:52 PM BINGO CALLER) MONO TEST NEGATIVE NEGATIVE 02/16/2024 10:09 PM BINGO CALLER [facility] 02/16/2024 9:52 PM BINGO CALLER us Tejas Weiss DNP LABORATORY Final Resul t [facility] [address] [place] [address], [place] [phone] * (ABNORMAL) COMPREHENSIVE METABOLIC PANEL (02/16/2024 9:52 PM BINGO CALLER) SODIUM S/P/B 140 136 - 145 MMOL/L 02/16/2024 10:10 PM BINGO CALLER [facility] POTASSIUM S/P/B 4.7 3.5 - 5.1 MMOL/L 02/16/2024 10:10 PM [facility] Comment:SLIGHT HEMOLYSIS, RE SULT MAY BE AFFECTED. CHLORIDE S/P/B 114 97 - 115 MMOL/L 02/16/2024 10:10 PM BINGO CALLER [facility] CO2 20.3(L) 21.0 - 32.0 MMOL/L 02/16/2024 10:10 PM BINGO CALLER [facility] GLUCOSE 93 74 - 106 MG/DL 02/16/2024 10:10 PM BINGO CALLER [facility] BUN 22(H) 7 - 18 MG/DL 02/16/2024 10:10 PM [facility] CREATININE S/P/B 1.55(H) 0.55 - 1.02 MG/DL 02/16/2024 10:10 PM BINGO CALLER [facility] CALCIUM S/P/B 9.1 8.5 - 10.1 MG/DL 02/16/2024 10:10 PM BINGO CALLER [facility] BILIRUBIN TOTAL S/P/B 0.7 0.2 - 1.0 MG/DL 02/16/2024 10:10 PM BINGO CALLER [facility] ALKALINE PHOSPHATASE S/P/B 307(H) 37 - 98 U/L 02/16/2024 10:10 PM BINGO CALLER [facility] AST 32 15 - 37 U/L 02/16/2024 10:10 PM BINGO CALLER [facility] ALT 50 13 - 56 U/L 02/16/2024 10:10 PM BINGO CALLER [facility] TOTAL PROTEIN S/P/B 6.9 6.4 - 8.2 G/DL 02/16/2024 10:10 PM BINGO CALLER [facility] ALBUMIN S/P/B 3.3(L) 3.4 - 5.0 G/DL 02/16/2024 10:10 PM BINGO CALLER [facility] ANION GAP 5.7 2.0 - 10.0 MMOL/L 02/16/2024 10:10 PM [facility] OSMOLALITY (CALC) 293 MOSM/KG 024 10:10 PM [facility] Comment:REFERENCE RANGE NOT ESTABLISHED GFR ESTIMATE 43(L) >90 ML/MIN/1. 73 M2 02/16/2024 10:10 PM BINGO CALLER [facility] GFR NOTES GFR REFERENCE S: 02/16/2024 10:10 PM [facility] Comment: THE ESTIMATED GFR IS [...] FAILURE: <15 ml/min/1.73 m2 02/16/2024 9:52 PM BINGO CALLER us Tejas Weiss DNP LABORATORY Final Resul t [facility] [address] [place] [address], [id number] * (ABNORMAL) CBC W/DIFF AUTOMATED (02/16/2024 9:52 PM BINGO CALLER) [facility] WBC 7.19 4.00 - 10.80 x10'3/uL 02/16/2024 9:56 PM BINGO CALLER [facility] RBC 3.82(L) 4.10 - 5.40 x10'6/uL 02/16/2024 9:56 PM BINGO CALLER [facility] HGB 13.6 12.0 - 16.0 G/DL 02/16/2024 9:56 PM [facility] HCT 40.0 36.0 - 47.0 % 02/16/2024 9:56 PM [facility] MCV 104.7(H) 78.0 - 100.0 FL 02/16/2024 9:56 PM [facility] MCH 35.6(H) 27.0 - 31.0 PG 02/16/2024 9:56 PM [facility] MCHC 34.0 33.0 - 36.0 G/DL 02/16/2024 9:56 PM [facility] RDW 13.6 11.5 - 14.5 % 02/16/2024 9:56 PM [facility] PLT 117(L) 150 - 350 x10'3/uL 02/16/2024 10:32 PM [facility] MPV 11.2(H) 7.4 - 10.4 FL 02/16/2024 10:32 PM [facility] DIFFERENTIAL TYPE AUTOMATED DIFFERENTIAL 02/16/2024 10:33 PM [facility] SEG NEUTROPHILS 65.8 % 10:33 PM [facility] LYMPHOCYTES 23.5 % 02/16/2024 10:33 PM [facility] MONOCYTES 6.4 % 02/16/2024 10:33 PM [facility] EOSINOPHILS 2.5 % 02/16/2024 10:33 PM [facility] BASOPHILS 0.3 % 02/16/2024 10:33 PM BINGO CALLER [facility] IMMATURE GRANS % 1.5 % 02/16/20 10:33 PM BINGO CALLER [facility] ABS. NEUTROPHILS 4.73 1.60 - 8.30 x10'3/uL 02/16/2024 10:33 PM BINGO CALLER [facility] ABS. LYMPHOCYTES 1.69 0.80 - 4.70 x10'3/uL 02/16/2024 10:33 PM BINGO CALLER [facility] ABS. MONOCYTES 0.46 0.00 - 1.50 x10'3/uL 02/16/2024 10:33 PM BINGO CALLER [facility] ABS. EOSINOPHILS 0.18 0.00 - 0.40 x10'3/uL 02/16/2024 10:33 PM BINGO CALLER [facility] ABS. BASOPHILS 0.02 0.00 - 0.20 x10'3/uL 02/16/2024 10:33 PM BINGO CALLER [facility] ABS. IMMATURE GRANULOCYTES 0.11(H) 0.00 - 0.03 x10'3/uL 02/16/2024 10:33 PM BINGO CALLER [facility] ABS. NUCLEATED RBC'S 0.00 0.00 - 0.01 x10'3/uL 02/16/2024 10:33 PM BINGO CALLER [facility] NRBC % 0.0 % 02/16/2024 10:33 PM BINGO CALLER [facility] 02/16/2024 9:52 PM BINGO CALLER us Tejas Weiss DNP LABORATORY Final Resul t [facility] [address] [place] [address], [id number] * XR CHEST PORTABLE (02/16/2024 8:46 PM BINGO CALLER) Anatomical Region Laterality Modality Chest Radiographic Katy ging 02/16/2024 9:06 PM BINGO CALLER Impressions 02/16/2024 9:59 PM BINGO CALLER IMPRESSION: No significant interval change, as detailed above. The attending radiologist has reviewed the image(s) and agrees with the content of this report. Ordered By: TEJAS WEISS Interpreted By: So Patel MD, 02/16/2024 9:06 PM Narrative 02/16/2024 9:59 PM BINGO CALLER [address] [address] EXAM: CHEST RADIOGRAPH Exam Date: 02/16/2024 7:49 [...] Procedure Note Marisa Francisco MD - 02/16/[address] [address] EXAM: CHEST RADIOGRAPH Exam Date: 02/16/2024 7:49 [...] So Patel MD, 02/16/2024 9:06 PM Tejas Wesis [facility] GENERAL IMAGING Final Resul t * STREP A RAPID (02/16/2024 8:11 PM BINGO CALLER) SPECIMEN SOURCE THROAT 02/16/2024 8:11 PM BINGO CALLER [facility] RAPID STREP TEST NEGATIVE NEGATIVE 02/16/2024 8:33 PM BINGO CALLER [facility] Comment:NEGATIVE FOR GROUP A BETA STREP ANTIGEN STRUCTURE OF ANTERIOR PORTION OF NECK / Unknown 02/16/2024 8:11 PM BINGO CALLER Tejas Weiss [facility] MICROBIOLOGY - GENERAL ORDE RABLES Final Result [facility] [address] [place] [address], [id number] * (ABNORMAL) BIOFIRE PCR UPPER RESPIRATORY PROFILE (RESPIRATORY PCR PANEL 2) (02/16/2024 8:11 PM BINGO CALLER) ADENOVIRUS PCR (RESP) NOT DETECTED NOT DETECTED 02/16/2024 9:16 PM BINGO CALLER [facility] CORONAVIRUS 229E PCR (RESP) NOT DETECTED NOT DETECTED 02/16/2024 9:16 PM BINGO CALLER [facility] CORONAVIRUS HKU1 PCR (RESP) NOT DETECTED NOT DETECTED 02/16/2024 9:16 PM BINGO CALLER [facility] CORONAVIRUS NL63 PCR (RESP) NOT DETECTED NOT DETECTED 02/16/2024 9:16 PM [facility] CORONAVIRUS OC43 PCR (RESP) NOT DETECTED NOT DETECTED 02/16/2024 9:16 PM [facility] METAPNEUMOVIRUS PCR (RESP) NOT DETECTED NOT DETECTED 02/16/2024 9:16 PM [facility] RHINOVIRUS/ENTEROV IRUS PCR (RESP) DETECTED(AA ) NOT DETECTED 02/16/2024 9:16 PM [facility] Comment: RESULTS PHONED TO AND READ BACK BY: ANH [id number]) ANSON IN ED 02/16 2116 TLV INFLUENZA A PCR (RESP) NOT DETECTED NOT DETECTED 02/16/2024 9:16 PM [facility] INFLUENZA B PCR (RESP) NOT DETECTED NOT DETECTED 02/16/2024 9:16 PM [facility] PARAINFLUENZA 1 PCR (RESP) NOT DETECTED NOT DETECTED 02/16/2024 9:16 PM [facility] PARAINFLUENZA 2 PCR (RESP) NOT DETECTED NOT DETECTED 02/16/2024 9:16 PM [facility] PARAINFLUENZA 3 PCR (RESP) NOT DETECTED NOT DETECTED 02/16/2024 9:16 PM [facility] PARAINFLUENZA 4 PCR (RESP) NOT DETECTED NOT DETECTED 02/16/2024 9:16 PM [facility] RSV PCR (RESP) NOT DETECTED NOT DETECTED 02/16/2024 9:16 PM [facility] B PARAPERTUSIS PCR (RESP) NOT DETECTED NOT DETECTED 02/16/2024 9:16 PM [facility] BORDETELLA PERTUSSIS PCR (RESP) NOT DETECTED NOT DETECTED 02/16/2024 9:16 PM [facility] CHLAMYDOPHILA PNEUMONIAE PCR (RESP) NOT DETECTED NOT DETECTED 02/16/2024 9:16 PM [facility] MYCOPLASMA PNEUMONIAE PCR (RESP) NOT DETECTED NOT DETECTED 02/16/2024 9:16 PM BINGO CALLER [facility] CORONAVIRUS SARS COV 2 PCR (RESP) NOT DETECTED NOT DETECTED 02/16/2024 9:16 PM BINGO CALLER [facility] NASOPHARYNGEAL SWAB / Unknown 02/16/2024 8:11 PM BINGO CALLER Tejas Weiss DNP MICROBIOLOGY - GENERAL [place] Final Result [facility] [address] [place] [address], [place] [phone] documented in this encounter Visit Diagnoses Diagnosis [...] Mon02/16/24 at 2300 Given 02/16/2024 11:11 PM BINGO CALLER 2.5 mg diphenhydrAMINE (BENADRYL) injection 25 mg 25 mg, Intravenous, Once, 1 dose, On Mon02/16/24 at 2200, For IV administration, give no faster than 25 mg/min. Given 02/16/2024 10:01 PM BINGO CALLER 25 mg diphenhydrAMINE (BENADRYL) injection 25 mg 25 mg, Intravenous, Once, 1 dose, On Mon02/16/24 at 2300, For IV administration, give no faster than 25 mg/min. Given 02/16/2024 10:58 PM BINGO CALLER 25 mg HYDROmorphone (DILAUDID) injection 0.5 mg 0.5 mg, Intramuscular, Every 1 hour PRN, Severe pain (Scale 8 - 10), 1 dose, Starting on Mon02/16/24 at 2112, Until Mon02/16/24 at 2124, Administer slowly over at least 2-3 minutes. Given 02/16/2024 9:24 PM BINGO CALLER 0.5 mg Left Deltoid HYDROmorphone (DILAUDID) injection 0.5 mg 0.5 mg, Intravenous, Once, 1 dose, On Mon02/16/24 at 2200, Administer slowly over at least 2-3 minutes. Given 02/16/2024 10:03 PM BINGO CALLER 0.5 mg ipratropium-albuterol (DUONEB) 0.5-2.5 (3) MG/3ML nebulizer solution 3 mL 3 mL, Nebulization, Once, 1 dose, On Mon02/16/24 at 2014 Given 02/16/2024 8:19 PM BINGO CALLER 3 mLs morphine injection 4 mg 4 mg, Intravenous, Once, 1 dose, On Mon02/16/24 at 2300 Given 02/16/2024 10:58 PM BINGO CALLER 4 mg normal saline 0.9 % flush 3-10 mL 3-10 mL, Intravenous, Every 8 hours, First dose on Mon02/16/24 at 2014, Until Discontinued normal saline 0.9 % flush 3-10 mL 3-10 mL, Intravenous, As needed, Line care, Starting on Mon02/16/24 at 2008, Until 02/17/24 at 0128 documented in this encounter Active and Recently Administered Medications Times are shown in BINGO CALLER. Scheduled Medication Order 02/14/2024 02/15/2024 02/16/2024 albuterol [...] Rule Out 02/16/2024 02/16/2024 02/16/2024 9:16 PM BINGO CALLER Rhinovirus 02/16/2024 02/16/2024 02/26/2024 12:3 2 AM BINGO CALLER documented as of this encounter Care Teams Emissions Technician Relationship Specialty Start Date End Date Hermes Ramirez III, MD [address] [facility] [address] [place] [address] PCP - General FAMILY PRACTICE 06/20/17 documented as of this encounter
--- OUTSIDE RECORDS SUMMARY | 2024-03-20 16:34 | XMS_ITS | Encounter Summary ---
Author Organization [facility] Address [address] [place] [address]. [place], [place] [id number] [place] [address] Care Team Providers Care Forecast Analyst Name Role Phone Ashley ZUNIGA MD, [...] any time in the past 12 m [facility], were you homeless or living in a senior care (including now)? No 02/20/2024 Comments No Sex and Gender Information Value Date Recorded Sex Assigned at Not on file Legal Sex Female 9:15 PM TASSEL MAKER Gender Identity Not on file Sexual Orientation Not on file documented as of this encounter Plan of Treatment Not on file documented as of this encounter Visit Diagnoses Not on filedocumented in this encounter Additional Health Concerns Infection Onset Date Last Indicated Resolved Time Rhinovirus 02/16/2024 02/16/2024 02/26/2024 12:3 2 AM TASSEL MAKER documented as of this encounter Care Teams Forecast Analyst Relationship Specialty Start Date End Date Hermes Ramirez III, MD [address] [address] PCP - General FAMILY PRACTICE 06/20/17 documented as of this encounter
--- OUTSIDE RECORDS SUMMARY | 2024-03-20 16:34 | XMS_ITS | Encounter Summary ---
Author Organization [facility] Address [address] [place] [address]. [place], [place] [id number] [place] [id number] Care Team Providers Care Network Admin Name Role Phone Ashley ZUNIGA MD, Sherry Perez Primary Care Provid er Reason for Visit * Reason Comments Cough * Auth/Cert (Routine) Specialty Diagnoses / Procedures Referred By Contac t Referred To Contact Diagnoses Dyspnea Acute CHF ([facility]) Acute congestive heart failure, unspecified heart failure type ([facility]) Viral infection Procedures NONE Eric Marques MD [address] [place] [address] Phone: tel: fax: Referral ID Status Reason Start Date Expiration Date Visits Re quested Visits Authorized [id number] 1 1 Encounter Details Date Type Department Care Team (Late st Contact Info) Description 02/19/2024 10:00 PM WIG COMBER - 02/20/2024 9:33 AM WIG COMBER Emergency [facility] Unit [address] [place] [address] Eric Marques MD [address] [place], [place] [id number] Justus Holloway MD [address] [place], [place] [id number] Cough Discharge Disposition: Left Against Medical Advice [...] any time in the past 12 m [facility], were you homeless or living in a care home (including now)? No 02/20/2024 Comments No Sex and Gender Information Value Date Recorded Sex Assigned at Not on file Legal Sex Female 9:15 PM WIG COMBER Gender Identity Not on file Sexual Orientation Not on file documented as of this encounter Last Filed Vital Signs Vital Sign Reading Time Taken Comments Blood Pressure 125/84 02/20/2024 8:23 AM WIG COMBER Pulse 67 02/20/2024 8:23 AM WIG COMBER Temperature 36.3 ??C (97.4 ??F) 02/20/2024 3:29 AM CS T Respiratory Rate 22 02/20/2024 3:29 AM WIG COMBER Oxygen Saturation 96% 02/20/2024 8:23 AM WIG COMBER Inhaled Oxygen Concentration - - Weight 88.8 kg (195 lb 12.3 oz) 02/20/2024 3:29 AM WIG COMBER Height 157.5 cm (5' 2 ) 02/19/2024 7:21 PM WIG COMBER Body Mass Index 35.81 02/19/2024 7:21 PM WIG COMBER documented in this encounter Functional Status * [...] Hospitalist Discharge Summary Patient ID: Misha Browne [id number] 43-year-old 1980 Admit date: 02/19/2024 Expected Discharge Date: Primary care Physician: SHERRY RAMIREZ III, MD Admitting Physician: Eric Marques MD Discharge Physician: JUSTUS HOLLOWAY MD Admission Diagnoses: Dyspnea [R06.00] Acute CHF (CMS/[facility] HHS/HCC) [I50.9] Acute congestive heart failure, unspecified heart failure type (CMS/[facility] HHS/HCC) [I50.9] Viral infection [B34.9] Discharge Diagnoses: Acute CHF exacerbation Past Medical History Past Medical History: Diagnosis Date Anemia 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 [facility] Please call [phone] if you have any questions or concerns. Signed: JUSTUS HOLLOWAY MD 02/20/2024 9:12 AM COMBER documented in this encounter Discharge Instructions * Discharge Instructions* Justus Holloway MD - 02/20/2024 9:28 AM WIG COMBER Please continue taking nebulizer COMBER documented in this encounter Medications at Time [...] to patient, witnessed by Julissa Mercado RN COMBER * Kimmy Hayes RN - 02/20/2024 7:24 AM CST 0717: Pt is currently pissed off about the suicidal precautions we have to set up in rooms. She is angry/crying about us removing wires, cords from her room. She is angry about havig a sitter. She isin the hallway with her belongings wanting to leave AMA. financial reporting analyst stated she is not allow to leaveif she is on suicidal watch. Security called. Dr. Barrera notified via Doc Halo [id number]: Dr. Holloway stated Pt is ok to leave AMA since last suicidal thought was 6 months ago and not anactive suicidal idealation COMBER COMBER * Kimmy Hayse RN - 02/20/2024 4:31 AM CST 0431: Pt stated she had suicidal thought within the past 6 months. She has not made a plan, or act on it. She is a moderate suicide risk. She is requesting psych consult because she feels she needs her meds readjusted. Per protocol order placed. Dr. Marques notified and he stated he will consult psych in a.m. financial reporting analyst notified COMBER COMBER * Kimmy Hayes RN - 02/20/2024 3:50 [...] Dr. Sal notified via Doc Halo . COMBER * Eric Marques MD - 02/20/2024 3:41 AM CST Patient refused to take PO pain meds only requested IV morphine Iv Dilaudid and Iv fentanyl She was prescribed Percoset in the past but she is not willing to try. Morphine is ordered COMBER documented in this encounter H&P Notes * Eric Marques MD - 02/20/2024 1:27 AM CST Images from the original note were not included. [facility] Hospitalist H&P Note Attending Provider: Eric Marques MD PCP: SHERRY RAMIREZ III, MD Reason for Admission: Acute CHF ([facility]/HCC [facility]) Assessment And Plan: Misha Browne is an [...] MARQUES MD 02/20/2024 Thank you for choosing [facility] hospitalist service. Please call us if any [...] at bedtime Infusion PRN acetaminophen, diphenhydrAMINE, ipratropium-albuterol, fjxnzvyxf-tvazrgeu-hzhchefhtts, ondansetron,oxyCODONE-acetaminophen Review of Systems Constitutional: Positive for [...] total) by mouth. Principal Problem: Acute CHF ([facility]) SNOMED CT(R): ACUTE CONGESTIVE HEART FAILURE Blood [...] XR CHEST PA+LAT Final Result by User, [id number] (02/18 2001) [address] [address] PATIENT NAME: MISHA BROWNE EXAM: Chest 2 [...] MARQUES MD 02/20/2024 [facility]. Please call us if any qts or concerns COMBER COMBER documented in this encounter ED Notes * [...] If any critical questions, call Dea at [phone] ED Provider Diagnosis: Clinical Impression Acute congestive heart failure, unspecified heart failure type ([facility]) (Primary) Dyspnea Admitting Provider: No admitting provider for patient encounter. 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 COMBER * Magan Maddox RN - 02/20/2024 2:30 AM CST Pt states that she need to go to her car to get medicine and smoke a cigarette, pt explained that we could accompany her but if she wanted to go out to her car alone she would need to have her IV removed and check out of the hospital. Pt than began to call auto service writer luz marina. Production Zone Leader left the room and pt called out for AMA forms. Production Zone Leader returned to room to deliver forms and at that time pt began to curse at auto service writer and demand someone in charge. Per Mariela Hampton RN it would be acceptable for a tech to escort the pt to her car to retreive her medication with her IV still in place. COMBER * Dea Rhodes RN - 02/20/2024 2:16 AM CST Bed: L2 Expected date: 02/20/24 Expected time: 1:56 AM Means of arrival: Comments: Room 8 COMBER * MAYITO Lyons - 02/19/2024 11:37 PM [...] Acute Pain < 3 Day Supply 02/16/24 Jatinder Lou DNP predniSONE (DELTASONE) 2.5 mg tablet [...] XR CHEST PA+LAT Final Result by User, [id number] (02/18 2001) [place] [address] PATIENT NAME: MISHA BROWNE EXAM: Chest 2 [...] tablet (has no administration in time range) ywxywftcj-wpmwbdcs-pzypuiyooiw ([employer]) 4448-1230-514 mg/30mL suspension (has no administration in time [...] heart failure, unspecified heart failure type (CMS/HCC [facility]/HCC) (Primary) Dyspnea Limitations to history/exam/care: None Medical [...] MAYITO Lyons 02/20/2024 MAYITO Lyons 02/20/24 0331 COMBER * Huong Farris NP - 02/19/2024 7:18 [...] Danish Menjivar MD at 02/20/2024 5:52 AM WIG COMBER COMBER COMBER * Estella Hassan RN - 02/19/2024 7:17 PM CST Pt arrived pov, c/o pneumonia. Cough and pain. Currently on abx has three days left. Doing breathing treatments at home. COMBER documented in this encounter Plan of Treatment Not on file documented as of this encounter Procedures Procedure Name Priority Date/Time Associated Diagnosis Comments PRO-BRAIN NATRIURETIC PEPTIDE STAT 02/20/2024 12:16 AM WIG COMBER TROPONIN, QUANT STAT 02/20/2024 12:16 AM WIG COMBER BASIC METABOLIC PANEL STAT 02/19/2024 8:08 PM WIG COMBER CBC W/DIFF AUTOMATED STAT 02/19/2024 8:08 PM WIG COMBER XR CHEST PA+LAT STAT 02/19/2024 7:39 PM WIG COMBER documented in this encounter Results * TROPONIN, QUANT (02/20/2024 12:16 AM WIG COMBER) Pathologist [facility] TROPONIN I HIGH SENSITIVITY 7 0 - 53 ng/L 02/20/2024 1:34 AM WIG COMBER [facility] 02/20/2024 12:1 6 AM WIG COMBER [facility] Final Resul t Performing Organization Address [facility] de Phone Number [facility] [address] [place] [address], [place] [phone] * (ABNORMAL) PRO-BRAIN NATRIURETIC PEPTIDE (02/20/2024 12:16 AM WIG COMBER) [facility] PRO-B TYPE NATRIURETIC PEPTIDE 952(H) <125 PG/ML 02/20/2024 12:48 AM WIG COMBER [facility] Comment: AGE INDEPENDENT: <300 PG/ML HAS [...] FOR ACUTE CHF. 02/20/2024 12:1 6 AM WIG COMBER [facility] Final Resul t Performing Organization Address [facility] Co de Phone Number [facility] [address] [place] [address], [place] [phone] * (ABNORMAL) BASIC METABOLIC PANEL (02/19/2024 8:08 PM WIG COMBER) Pathologist [facility] SODIUM S/P/B 141 136 - 145 MMOL/L 02/19/2024 9:02 PM [facility] POTASSIUM S/P/B 4.6 3.5 - 5.1 MMOL/L 02/19/2024 9:02 PM [facility] CHLORIDE S/P/B 114 97 - 115 MMOL/L 02/19/2024 9:02 PM [facility] CO2 21.4 21.0 - 32.0 MMOL/L 02/19/2024 9:02 PM [facility] GLUCOSE 122(H) 74 - 106 MG/DL 02/19/2024 9:02 PM [facility] BUN 29(H) 7 - 18 MG/DL 02/19/2024 9:02 PM [facility] CREATININE S/P/B 1.64(H) 0.55 - 1.02 MG/DL 02/19/2024 9:02 PM [facility] CALCIUM S/P/B 9.1 8.5 - 10.1 MG/DL 02/19/2024 9:02 PM [facility] ANION GAP 5.6 2.0 - 10.0 MMOL/L 02/19/2024 9:02 PM [facility] OSMOLALITY (CALC) 299 MOSM/KG 024 9:02 PM [facility] Comment:REFERENCE RANGE NOT ESTABLISHED GFR ESTIMATE 40(L) >90 ML/MIN/1. 73 M2 02/19/2024 9:02 PM [facility] GFR NOTES GFR REFERENCE S: 02/19/2024 9:02 PM [facility] Comment: THE ESTIMATED GFR IS [...] FAILURE: <15 ml/min/1.73 m2 02/19/2024 8:08 PM WIG COMBER Huong Gleznton Brenton [facility] Final R esult [facility] [address] [place] [address], [phone] * (ABNORMAL) CBC W/DIFF AUTOMATED (02/19/2024 8:08 PM WIG COMBER) WBC 8.66 4.00 - 10.80 x10'3/uL 02/19/2024 8:37 PM WIG COMBER [facility] RBC 4.01(L) 4.10 - 5.40 x10'6/uL 02/19/2024 8:37 PM WIG COMBER [facility] HGB 14.1 12.0 - 16.0 G/DL 02/19/2024 8:37 PM WIG COMBER [facility] HCT 43.0 36.0 - 47.0 % 02/19/2024 8:37 PM [facility] MCV 107.2(H) 78.0 - 100.0 FL 02/19/2024 8:37 PM WIG COMBER [facility] MCH 35.2(H) 27.0 - 31.0 PG 02/19/2024 8:37 PM WIG COMBER [facility] MCHC 32.8(L) 33.0 - 36.0 G/DL 02/19/2024 8:37 PM WIG COMBER [facility] RDW 13.7 11.5 - 14.5 % 02/19/2024 8:37 PM [facility] PLT 166 150 - 350 x10'3/uL 02/19/2024 8:37 PM [facility] MPV 10.5(H) 7.4 - 10.4 FL 02/19/2024 8:37 PM WIG COMBER [facility] DIFFERENTIAL TYPE AUTOMATED DIFFERENTIAL 02/19/2024 8:37 PM WIG COMBER [facility] SEG NEUTROPHILS 75.8 % 8:37 PM [facility] LYMPHOCYTES 16.5 % 02/19/2024 8:37 PM WIG COMBER [facility] MONOCYTES 5.3 % 02/19/2024 8:37 PM WIG COMBER [facility] EOSINOPHILS 1.5 % 02/19/2024 8:37 PM WIG COMBER [facility] BASOPHILS 0.2 % 02/19/2024 8:37 PM WIG COMBER [facility] IMMATURE GRANS % 0.7 % 02/19/20 8:37 PM [facility] ABS. NEUTROPHILS 6.56 1.60 - 8.30 x10'3/uL 02/19/2024 8:37 PM WIG COMBER [facility] ABS. LYMPHOCYTES 1.43 0.80 - 4.70 x10'3/uL 02/19/2024 8:37 PM WIG COMBER [facility] ABS. MONOCYTES 0.46 0.00 - 1.50 x10'3/uL 02/19/2024 8:37 PM WIG COMBER [facility] ABS. EOSINOPHILS 0.13 0.00 - 0.40 x10'3/uL 02/19/2024 8:37 PM WIG COMBER [facility] ABS. BASOPHILS 0.02 0.00 - 0.20 x10'3/uL 02/19/2024 8:37 PM [facility] ABS. IMMATURE GRANULOCYTES 0.06(H) 0.00 - 0.03 x10'3/uL 02/19/2024 8:37 PM [facility] ABS. NUCLEATED RBC'S 0.00 0.00 - 0.01 x10'3/uL 02/19/2024 8:37 PM WIG COMBER [facility] NRBC % 0.0 % 02/19/2024 8:37 PM [facility] 02/19/2024 8:08 PM WIG COMBER Huong Deann Farris CONSULTING SOFTWARE [facility] Final R esult [facility] [address] [place] [address], [id number] * XR CHEST PA+LAT (02/19/2024 7:39 PM WIG COMBER) Anatomical Region Laterality Modality Chest Radiographic Katy ging 02/19/2024 7:58 PM WIG COMBER Impressions 02/19/2024 7:59 PM WIG COMBER IMPRESSION: 1. ??CARDIOMEGALY WITHOUT EVIDENCE OF CHF. Signed: Mike Donnelly MD Referred By: ?? Interpreted By: Mike Donnelly MD, 02/19/2024 7:58 PM Narrative 02/19/2024 7:59 PM WIG COMBER [address] [address] PATIENT NAME: MISHA BROWNE EXAM: Chest 2 view DATE OF EXAM: 02/19/2024 COMPARISON EXAM: 02/16/2024 INDICATION: Recent pneumonia, short of breath TECHNIQUE: PA and lateral FINDINGS: Mild cardiomegaly. ??Pulmonary vasculature does not appear significantly congested. ??No significant acute pulmonary parenchymal opacity. ??No pleural effusion. ??No hyperinflation. Procedure Note Mike Donnelly MD - 02/19/[address] [address] PATIENT NAME: MISHA BROWNE EXAM: Chest 2 [...] this encounter Visit Diagnoses Diagnosis Acute CHF ([facility])- Primary Congestive heart failure, unspecified Acute congestive heart failure, unspecified heart failure type ([facility]) Dyspnea Other dyspnea and respiratory abnormality Suicidal ideations Suicidal ideation Viral infection Unspecified viral infection, in conditions classified elsewhere and of unspecified site documented in this encounter Admitting Diagnoses Diagnosis Acute CHF ([facility]) Congestive heart failure, unspecified Viral infection Unspecified [...] in 24 hours. Given 02/20/2024 6:49 AM WIG COMBER 650 mg albuterol (PROVENTIL) (2.5 MG/3ML) 0.083% nebulizer solution 5 mg 5 mg, Nebulization, Once, 1 dose, On Mon02/20/24 at 0100 Given 02/20/2024 1:06 AM WIG COMBER 5 mg budesonide (PULMICORT) nebulizer solution 0.5 mg 0.5 mg, Nebulization, 2 times daily, First dose on Mon02/20/24 at 0700, Until Discontinued, Shake Gently Given 02/20/2024 6:38 AM WIG COMBER 0.5 mg dextromethorphan-guaiFENesin ER (MUCINEX DM) 30-600 MG 12 hr tablet 1 tablet 1 tablet, Oral, 2 times daily, First dose on Mon02/20/24 at 0230, Until Discontinued, Do not break, chew, or crush. Given 02/20/2024 4:02 AM WIG COMBER 1 tablet diphenhydrAMINE (BENADRYL) injection 25 mg 25 mg, Intravenous, Every 6 hours PRN, Allergies, Itching, Starting on Mon02/20/24 at 0220, Until Mon02/20/24 at 1139, For IV administration, give no faster than 25 mg/min. furosemide (LASIX) injection 40 mg 40 mg, Intravenous, Once, 1 dose, On Mon02/20/24 at 0130, Administer IV push 20-40mg/min. Given 02/20/2024 1:58 AM WIG COMBER 40 mg heparin (porcine) injection 5,000 Units 5,000 Units, Subcutaneous, Every 12 hours scheduled (2 times per day), First dose on Mon02/20/24 at 0900, Until Discontinued HYDROmorphone (DILAUDID) injection 1 mg 1 mg, Intravenous, Once, 1 dose, On Mon02/20/24 at 0415, Administer slowly over at least 2-3 minutes. Given 02/20/2024 4:03 AM WIG COMBER 1 mg ipratropium-albuterol (DUONEB) 0.5-2.5 (3) MG/3ML nebulizer solution 3 mL 3 mL, Nebulization, Once, 1 dose, On Mon02/20/24 at 0100 Given 02/20/2024 1:05 AM WIG COMBER 3 mLs ipratropium-albuterol (DUONEB) 0.5-2.5 (3) MG/3ML nebulizer solution 3 mL 3 mL, Nebulization, Every 4 hours PRN, Shortness of breath, Starting on Mon02/20/24 at 0126, Until Mon02/20/24 at 1139 ipratropium-albuterol (DUONEB) 0.5-2.5 (3) MG/3ML nebulizer solution 3 mL 3 mL, Nebulization, Every 4 hours, First dose (after last reorder) on Mon02/20/24 at 0500, Until Discontinued Given 02/20/2024 4:02 AM WIG COMBER 3 mLs jddqaihwv-rihtvjsd-dnbrbiekxxy ([employer]) 8293-4080-866 mg/30mL suspension 10 mL, Oral, Every 4 hours PRN, Indigestion, Heartburn, Starting on Mon02/20/24 at 0126, Until Mon02/20/24 at 1139, Shake Well morphine injection 1 mg 1 mg, Intravenous, Every 4 hours PRN, Moderate pain (Scale 4 - 7), Severe pain (Scale 8 - 10), Starting on Mon02/20/24 at 0340, Until Mon02/20/24 at 0901 Given 02/20/2024 5:13 AM WIG COMBER 1 mg morphine injection 2 mg 2 mg, Intravenous, Once, 1 dose, On Mon02/20/24 at 0115 Given 02/20/2024 1:59 AM WIG COMBER 2 mg ondansetron (ZOFRAN) injection 4 mg [...] Recently Administered Medications Times are shown in WIG COMBER. Scheduled Medication Order 02/18/2024 02/19/2024 02/20/2024 albuterol (PROVENTIL) (2.5 MG/3ML) 0.083% nebulizer solution 5 mg (COMPLETED) 5 mg, Nebulization, Once, 1 dose, On Mon02/20/24 at 0100 0106 (Given - Provid er: Silvina Schulte, STRAIGHT CUTTER MACHINE) azaTHIOprine (IMURAN) tablet 50 mg 50 mg, [...] 0105 (Given - Provid er: Silvina Schulte, STRAIGHT CUTTER MACHINE) ipratropium-albuterol (DUONEB) 0.5-2.5 (3) MG/3ML nebulizer solution [...] Mon02/20/24 at 0126, Until Mon02/20/24 at 1139 siwjsfexy-wvdqzmhh-ilvtjetcopj ([employer]) 6470-4996-431 mg/30mL suspension 10 mL, Oral, Every 4 [...] Rhinovirus 02/16/2024 02/16/2024 02/26/2024 12:3 2 AM WIG COMBER documented as of this encounter Care Teams Network Admin Relationship Specialty Start Date End Date Sherry Ramirez III, MD [address] [facility] [address] [place] [address] PCP - General FAMILY PRACTICE 06/20/17 documented as of this encounter
--- OUTSIDE RECORDS SUMMARY | 2024-03-20 16:34 | XMS_ITS | Encounter Summary ---
Author Organization [facility] Address [address] [place] [address]. [place], [place] [address] [place] [address] Care Team Providers Care Furniture Refinisher Name Role Phone Ashley ZUNIGA MD, Hermes Perez Primary Care Provid er Reason for Referral * Imaging (Urgent) - New Request Specialty Diagnoses / Procedures Referred By Esvin gaspar Referred To Contact RADIOLOGY Procedures CT CHEST WO CON Randy Diamond MD [address], [facility] [address] [place] [address] Phone: tel: fax: Referral ID Status Reason Start Date Expiration Date V isits Requested Visits Authorized [id number] New Request 02/14/2024 02/13/2025 1 1 AIGN MARKETING SPECIALIST Reason for Visit * Reason Comments Shortness Of Breath Encounter Details Date Type Department Care Team (Late st Contact Info) Description 02/14/2024 2:16 PM CAMPAIGN MARKETING SPECIALIST - 02/14/2024 5:13 PM CAMPAIGN MARKETING SPECIALIST Emergency [facility] Emergency [address] [place] [address] Trae Denton MD [address] [place] [address] [id number] Shortness Of Breath Discharge Disposition: Home or [...] on file Legal Sex Female 9:15 PM CAMPAIGN MARKETING SPECIALIST Gender Identity Not on file Sexual Orientation Not on file documented as of this encounter Last Filed Vital Signs Vital Sign Reading Time Taken Comments Blood Pressure 148/96 02/14/2024 5:03 PM CAMPAIGN MARKETING SPECIALIST Pulse 81 02/14/2024 5:03 PM CAMPAIGN MARKETING SPECIALIST Temperature 36.7 ??C (98.1 ??F) 02/14/2024 2:13 PM CS T Respiratory Rate 22 02/14/2024 5:03 PM CAMPAIGN MARKETING SPECIALIST Oxygen Saturation 95% 02/14/2024 5:03 PM CAMPAIGN MARKETING SPECIALIST Inhaled Oxygen Concentration - - Weight 92.6 kg (204 lb 2.3 oz) 02/14/2024 2:13 P M CAMPAIGN MARKETING SPECIALIST Height 157.5 cm (5' 2 ) 02/14/2024 2:13 PM CAMPAIGN MARKETING SPECIALIST Body Mass Index 37.34 02/14/2024 2:13 PM CAMPAIGN MARKETING SPECIALIST documented in this encounter Discharge Instructions * Discharge Instructions* Randy Diamond MD - 02/14/2024 4:42 PM CAMPAIGN MARKETING SPECIALIST -Please call your primary care physician's office to schedule an appointment for re-evaluation -Your lab work and imaging was reassuring for improving pneumonia. You may have undiagnosed lung disease such as COPD. You could benefit from following up with a clinical immunologist. This can be set up by your [...] These findings may be important for your nursing home health, but were unlikely to be a [...] that everything was very good: all 5's. AIGN MARKETING SPECIALIST * Attachments The following attachments cannot be sent through Care Everywhere. * Pneumonia, Adult ED (Thai) * Ipratropium and Albuterol, ADULT (Thai) documented in this encounter Medications at [...] CHEST WO CON Final Result by User, [email or web address] (02/13 1705) [facility] [address] [place], [place] [address] Examination: CT CHEST WO CON Clinical Information: [...] thickening, or calcification. UPPER ABDOMEN The visualized assiniboine and sioux kidneys appear atrophic. Prominent vascular structures in [...] XR CHEST PA+LAT Final Result by User, [id number] (02/13 6167) [address] [address] EXAMINATION: Chest x-ray 2 views. 02/14/2024 2:55 [...] Dyspnea (Primary) Pneumonia Wheezing Tobacco use Immunosuppression ([facility]) Disposition: Discharge Cosigned by Trae Denton MD at 02/15/2024 7:40 AM CAMPAIGN MARKETING SPECIALIST AIGN MARKETING SPECIALIST AIGN MARKETING SPECIALIST * Liana Saenz RN - 02/14/2024 2:10 PM CST PATIENT ARRIVES POV WITH C/O SOB. SHE STATES SHE WAS HERE ON 02/11 AND DX WITH PNEUMONIA. PATIENT ALSO REPORT MIGRAINE. AIGN MARKETING SPECIALIST documented in this encounter Plan of Treatment Not on file documented as of this encounter Procedures Procedure Name Priority Date/Time Associated Diagnosis Comments CT CHEST WO CON STAT 02/14/2024 4:52 PM CAMPAIGN MARKETING SPECIALIST XR CHEST PA+LAT STAT 02/14/2024 3:00 PM CAMPAIGN MARKETING SPECIALIST PRO-BRAIN NATRIURETIC PEPTIDE STAT 02/14/2024 2:43 PM CAMPAIGN MARKETING SPECIALIST BASIC METABOLIC PANEL STAT 02/14/2024 2:43 PM CAMPAIGN MARKETING SPECIALIST HCG QUANT (SERUM)-CHORIONIC GONADOTROPIN STAT 02/14/2024 2:43 PM CAMPAIGN MARKETING SPECIALIST CBC W/DIFF AUTOMATED STAT 02/14/2024 2:43 PM CAMPAIGN MARKETING SPECIALIST TROPONIN, QUANT STAT 02/14/2024 2:43 PM CAMPAIGN MARKETING SPECIALIST documented in this encounter Results * CT CHEST WO CON (02/14/2024 4:52 PM CAMPAIGN MARKETING SPECIALIST) Anatomical Region Laterality Modality Chest Computed Tomogra phy 02/14/2024 4:57 PM CAMPAIGN MARKETING SPECIALIST Impressions 02/14/2024 5:04 PM CAMPAIGN MARKETING SPECIALIST Impression: 1. Improved pulmonary opacities since the [...] 02/14/2024 4:57 PM Narrative 02/14/2024 5:04 PM CAMPAIGN MARKETING SPECIALIST [address] [address] Examination: CT CHEST WO CON Clinical Information: [...] thickening, or calcification. UPPER ABDOMEN The visualized assiniboine and sioux kidneys appear atrophic. Prominent vascular structures in the left upper quadrant, potentially varices. BONES/SOFT TISSUES No significant lesion. Procedure Note Gabriel Alberto MD - 02/14/2024 [place] [address] Examination: CT CHEST WO CON Clinical Information: [...] thickening, or calcification. UPPER ABDOMEN The visualized assiniboine and sioux kidneys appear atrophic. Prominent vascularstructures in the [...] * XR CHEST PA+LAT (02/14/2024 3:00 PM CAMPAIGN MARKETING SPECIALIST) Anatomical Region Laterality Modality Chest Radiographic Katy ging 02/14/2024 3:04 PM CAMPAIGN MARKETING SPECIALIST Impressions 02/14/2024 3:07 PM CAMPAIGN MARKETING SPECIALIST IMPRESSION: 1. Cardiomegaly and pulmonary vascular congestion. 2. Mild reticular opacities and hazy groundglass opacities may be secondary to edema or pneumonia. Ordered By: RANDY DIAMOND Interpreted By: Marlys Jovel MD, 02/14/2024 3:04 PM Narrative 02/14/2024 3:07 PM CAMPAIGN MARKETING SPECIALIST [address] [address] EXAMINATION: Chest x-ray 2 views. 02/14/2024 2:55 [...] Procedure Note Marlys Jovel MD - 02/14/[address] [address] EXAMINATION: Chest x-ray 2 views. 02/14/2024 2:55 [...] - CHORIONIC GONADOTROPIN () (02/14/2024 2:43 PM CAMPAIGN MARKETING SPECIALIST) [facility] [address] [facility] HCG QUANTITATIVE <1 MIU/ML 02/14/20 3:42 PM CAMPAIGN MARKETING SPECIALIST [facility] Comment: <5 IS NEGATIVE 5-25 IS BORDERLINE >25 IS POSITIVE ASSAY PERFORMED BY CHEMILUMINESCENCE METHODOLOGY USING SIEMENS DIMENSION VISTA REAGENT. PATIENT RESULTS DETERMINED BY ASSAYS USING DIFFERENT MANUFACTURERS FOR METHODS MAY NOT BE COMPARABLE. 02/14/2024 2:43 PM CAMPAIGN MARKETING SPECIALIST Randy Diamond MD LABORATORY Final Result [facility] [address] [place] [address], [phone] * (ABNORMAL) PRO-BRAIN NATRIURETIC PEPTIDE (02/14/2024 2:43 PM CAMPAIGN MARKETING SPECIALIST) [facility] [address] PRO-B TYPE NATRIURETIC PEPTIDE 1,147(H) <125 PG/ML 02/14/2024 3:20 PM CAMPAIGN MARKETING SPECIALIST [facility] Comment: AGE INDEPENDENT: <300 PG/ML [...] 72% FOR ACUTE CHF. 02/14/2024 2:43 PM CAMPAIGN MARKETING SPECIALIST us Trae Denton MD LABORATORY Final Result Performing Organization Address [facility] Co de Phone Number [facility] [address] [place] [address], [phone] * TROPONIN, QUANT (02/14/2024 2:43 PM CAMPAIGN MARKETING SPECIALIST) [facility] [address] TROPONIN I HIGH SENSITIVITY 7 0 - 53 ng/L 02/14/2024 3:20 PM CAMPAIGN MARKETING SPECIALIST [facility] 02/14/2024 2:43 PM CAMPAIGN MARKETING SPECIALIST us Trae Denton MD LABORATORY Final Result Performing Organization Address [facility] Co de Phone Number [facility] [address] [place] [address], [place] [phone] * (ABNORMAL) BASIC METABOLIC PANEL (02/14/2024 2:43 PM CAMPAIGN MARKETING SPECIALIST) Pathologist [facility] SODIUM S/P/B 140 136 - 145 MMOL/L 02/14/2024 3:20 PM CAMPAIGN MARKETING SPECIALIST [facility] POTASSIUM S/P/B 4.7 3.5 - 5.1 MMOL/L 02/14/2024 3:20 PM CAMPAIGN MARKETING SPECIALIST [facility] CHLORIDE S/P/B 112 97 - 115 MMOL/L 02/14/2024 3:20 PM CAMPAIGN MARKETING SPECIALIST [facility] CO2 22.5 21.0 - 32.0 MMOL/L 02/14/2024 3:20 PM CAMPAIGN MARKETING SPECIALIST [facility] GLUCOSE 153(H) 74 - 106 MG/DL 02/14/2024 3:20 PM CAMPAIGN MARKETING SPECIALIST [facility] BUN 20(H) 7 - 18 MG/DL 02/14/2024 3:20 PM CAMPAIGN MARKETING SPECIALIST [facility] CREATININE S/P/B 1.69(H) 0.55 - 1.02 MG/DL 02/14/2024 3:20 PM CAMPAIGN MARKETING SPECIALIST [facility] CALCIUM S/P/B 9.2 8.5 - 10.1 MG/DL 02/14/2024 3:20 PM CAMPAIGN MARKETING SPECIALIST [facility] ANION GAP 5.5 2.0 - 10.0 MMOL/L 02/14/2024 3:20 PM CAMPAIGN MARKETING SPECIALIST [facility] OSMOLALITY (CALC) 296 MOSM/KG 024 3:20 PM CAMPAIGN MARKETING SPECIALIST [facility] Comment:REFERENCE RANGE NOT ESTABLISHED GFR ESTIMATE 39(L) >90 ML/MIN/1. 73 M2 02/14/2024 3:20 PM CAMPAIGN MARKETING SPECIALIST [facility] GFR NOTES GFR REFERENCE S: 02/14/2024 3:20 PM CAMPAIGN MARKETING SPECIALIST [facility] Comment: THE ESTIMATED GFR IS [...] FAILURE: <15 ml/min/1.73 m2 02/14/2024 2:43 PM CAMPAIGN MARKETING SPECIALIST us Randy Diamond MD LABORATORY Final Result [facility] [address] [place] [address], [id number] * (ABNORMAL) CBC W/DIFF AUTOMATED (02/14/2024 2:43 PM CAMPAIGN MARKETING SPECIALIST) [facility] [address] [facility] WBC 5.86 4.00 - 10.80 x10'3/uL 02/14/2024 2:51 PM CAMPAIGN MARKETING SPECIALIST [facility] RBC 3.47(L) 4.10 - 5.40 x10'6/uL 02/14/2024 2:51 PM CAMPAIGN MARKETING SPECIALIST [facility] HGB 12.2 12.0 - 16.0 G/DL 02/14/2024 2:51 PM CAMPAIGN MARKETING SPECIALIST [facility] HCT 36.0 36.0 - 47.0 % 02/14/2024 2:51 PM CAMPAIGN MARKETING SPECIALIST [facility] MCV 103.7(H) 78.0 - 100.0 FL 02/14/2024 2:51 PM CAMPAIGN MARKETING SPECIALIST [facility] MCH 35.2(H) 27.0 - 31.0 PG 02/14/2024 2:51 PM CAMPAIGN MARKETING SPECIALIST [facility] MCHC 33.9 33.0 - 36.0 G/DL 02/14/2024 2:51 PM CAMPAIGN MARKETING SPECIALIST [facility] RDW 13.4 11.5 - 14.5 % 02/14/2024 2:51 PM CAMPAIGN MARKETING SPECIALIST [facility] PLT 119(L) 150 - 350 x10'3/uL 02/14/2024 2:51 PM CAMPAIGN MARKETING SPECIALIST [facility] MPV 10.9(H) 7.4 - 10.4 FL 02/14/2024 2:51 PM CAMPAIGN MARKETING SPECIALIST [facility] DIFFERENTIAL TYPE AUTOMATED DIFFERENTIAL 02/14/2024 2:51 PM CAMPAIGN MARKETING SPECIALIST [facility] SEG NEUTROPHILS 74.2 % 2:51 PM CAMPAIGN MARKETING SPECIALIST [facility] LYMPHOCYTES 15.7 % 02/14/2024 2:51 PM CAMPAIGN MARKETING SPECIALIST [facility] MONOCYTES 6.3 % 02/14/2024 2:51 PM CAMPAIGN MARKETING SPECIALIST [facility] EOSINOPHILS 1.9 % 02/14/2024 2:51 PM CAMPAIGN MARKETING SPECIALIST [facility] BASOPHILS 0.2 % 02/14/2024 2:51 PM CAMPAIGN MARKETING SPECIALIST [facility] IMMATURE GRANS % 1.7 % 02/14/20 2:51 PM CAMPAIGN MARKETING SPECIALIST [facility] ABS. NEUTROPHILS 4.35 1.60 - 8.30 x10'3/uL 02/14/2024 2:51 PM CAMPAIGN MARKETING SPECIALIST [facility] ABS. LYMPHOCYTES 0.92 0.80 - 4.70 x10'3/uL 02/14/2024 2:51 PM CAMPAIGN MARKETING SPECIALIST [facility] ABS. MONOCYTES 0.37 0.00 - 1.50 x10'3/uL 02/14/2024 2:51 PM CAMPAIGN MARKETING SPECIALIST [facility] ABS. EOSINOPHILS 0.11 0.00 - 0.40 x10'3/uL 02/14/2024 2:51 PM CAMPAIGN MARKETING SPECIALIST [facility] ABS. BASOPHILS 0.01 0.00 - 0.20 x10'3/uL 02/14/2024 2:51 PM CAMPAIGN MARKETING SPECIALIST [facility] ABS. IMMATURE GRANULOCYTES 0.10(H) 0.00 - 0.03 x10'3/uL 02/14/2024 2:51 PM CAMPAIGN MARKETING SPECIALIST [facility] ABS. NUCLEATED RBC'S 0.00 0.00 - 0.01 x10'3/uL 02/14/2024 2:51 PM CAMPAIGN MARKETING SPECIALIST [facility] NRBC % 0.0 % 02/14/2024 2:51 PM CAMPAIGN MARKETING SPECIALIST [facility] 02/14/2024 2:43 PM CAMPAIGN MARKETING SPECIALIST Randy Diamond MD LABORATORY Final Result [facility] [address] [place] [address], [id number] documented in this encounter Visit Diagnoses Diagnosis Dyspnea- Primary Other dyspnea and respiratory abnormality Pneumonia Pneumonia, organism unspecified Wheezing Tobacco use Tobacco use disorder Immunosuppression ([facility]) Unspecified disorder of immune mechanism documented in this encounter Administered Medications Inactive Administered Medications - up to 3 most recent administrations Medication Order MAR Action Action Date Dose Rate Site diphenhydrAMINE (BENADRYL) injection 25 mg 25 mg, Intravenous, Once, 1 dose, On Mon02/14/24 at 1445, For IV administration, give no faster than 25 mg/min. Given 02/14/2024 2:45 PM CAMPAIGN MARKETING SPECIALIST 25 mg ipratropium-albuterol (DUONEB) 0.5-2.5 (3) MG/3ML nebulizer solution 3 mL 3 mL, Nebulization, Once, 1 dose, On Mon02/14/24 at 1430 Given 02/14/2024 2:38 PM CAMPAIGN MARKETING SPECIALIST 3 mLs ipratropium-albuterol (DUONEB) 0.5-2.5 (3) MG/3ML nebulizer solution 3 mL 3 mL, Nebulization, Once, 1 dose, On Mon02/14/24 at 1615 Given 02/14/2024 4:51 PM CAMPAIGN MARKETING SPECIALIST 3 mLs morphine injection 4 mg 4 mg, Intravenous, Once, 1 dose, On Mon02/14/24 at 1530 Given 02/14/2024 3:32 PM CAMPAIGN MARKETING SPECIALIST 4 mg normal saline 0.9 % flush [...] receiving the medication. Given 02/14/2024 2:45 PM CAMPAIGN MARKETING SPECIALIST 10 mg documented in this encounter Active and Recently Administered Medications Times are shown in CAMPAIGN MARKETING SPECIALIST. Scheduled Medication Order 02/12/2024 02/13/2024 02/14/2024 diphenhydrAMINE [...] 1911 documented in this encounter Care Teams Furniture Refinisher Relationship Specialty Start Date End Date Hermes Ramirez III, MD [address] [address] PCP - General FAMILY PRACTICE 06/20/17 documented as of this encounter
--- OUTSIDE RECORDS SUMMARY | 2024-03-20 16:34 | XMS_ITS | Encounter Summary ---
Author Organization [facility] Address [address] [place] [address]. [place], [place] [address] [place] [address] Care Team Providers Care Fuels Sales Representative Name Role Phone Ashley ZUNIGA MD, Hermes [...] on file Legal Sex Female 9:15 PM BRAKE LINING CURER Gender Identity Not on file Sexual Orientation Not on file documented as of this encounter Plan of Treatment Not on file documented as of this encounter Visit Diagnoses Not on filedocumented in this encounter Care Teams Fuels Sales Representative Relationship Specialty Start Date End Date Hermes Ramirez III, MD [address] [facility] [address] [place] [address] PCP - General FAMILY PRACTICE 06/20/17 documented as of this encounter
--- OUTSIDE RECORDS SUMMARY | 2024-03-20 16:34 | XMS_ITS | Encounter Summary ---
Author Organization [facility] Address [address] [place] [address]. [place], [place] [address] [place] [address] Care Team Providers Care Electric Spot Welder Name Role Phone Ashley ZUNIGA MD, Hermes [...] on file Legal Sex Female 9:15 PM AUTOGLAZIER Gender Identity Not on file Sexual Orientation Not on file documented as of this encounter Plan of Treatment Not on file documented as of this encounter Visit Diagnoses Not on filedocumented in this encounter Care Teams Electric Spot Welder Relationship Specialty Start Date End Date Hermes Ramirez III, MD [address] [facility] [address] [place] [address] PCP - General FAMILY PRACTICE 06/20/17 documented as of this encounter
--- OUTSIDE RECORDS SUMMARY | 2024-03-20 16:34 | XMS_ITS | Encounter Summary ---
Author Organization [facility] Address [address] [place] [address]. [place], [place] [address] [place] [address] Care Team Providers Care Labor Utilization Superintendent Name Role Phone Ashley ZUNIGA MD, Hermes [...] on file Legal Sex Female 9:15 PM DEAN OF BOYS Gender Identity Not on file Sexual Orientation Not on file documented as of this encounter Plan of Treatment Not on file documented as of this encounter Visit Diagnoses Not on filedocumented in this encounter Additional Health Concerns Infection Onset Date Last Indicated Resolved Time COVID-19 Rule Out 02/16/2024 02/16/2024 02/16/2024 9:16 PM DEAN OF BOYS Rhinovirus 02/16/2024 02/16/2024 02/26/2024 12:3 2 AM DEAN [employer] BOYS documented as of this encounter Care Teams Labor Utilization Superintendent Relationship Specialty Start Date End Date Hermes Ramirez III, MD [address] [facility] [address] [place] [address] PCP - General FAMILY PRACTICE 06/20/17 documented as of this encounter
--- OUTSIDE RECORDS SUMMARY | 2024-03-20 16:35 | XMS_ITS | Encounter Summary ---
Author Organization [facility] Address [address] [place] [address]. [place], [place] [address] [place] [address] Care Team Providers Care Lead Operator Name Role Phone Ashley ZUNIGA MD, [...] on file Legal Sex Female 9:15 PM PROTECTION SPECIALIST Gender Identity Not on file Sexual Orientation Not on file documented as of this encounter Plan of Treatment Not on file documented as of this encounter Visit Diagnoses Not on filedocumented in this encounter Care Teams Lead Operator Relationship Specialty Start Date End Date Hermes Ramirez III, MD [address] [facility] [address] [place] [address] PCP - General FAMILY PRACTICE 06/20/17 documented as of this encounter
--- OUTSIDE RECORDS SUMMARY | 2024-03-20 16:35 | XMS_ITS | Encounter Summary ---
Author Organization [facility] Address [address] [place] [address]. [place], [place] [address] [place] [address] Care Team Providers Care Exercise Physiology Professor Name Role Phone Ashley ZUNIGA MD, [...] on file Legal Sex Female 9:15 PM PROPERTY OFFICER Gender Identity Not on file Sexual Orientation Not on file documented as of this encounter Plan of Treatment Not on file documented as of this encounter Visit Diagnoses Not on filedocumented in this encounter Care Teams Exercise Physiology Professor Relationship Specialty Start Date End Date Hermes Ramirez III, MD [address] [facility] [address] [place] [address] PCP - General FAMILY PRACTICE 06/20/17 documented as of this encounter
--- OUTSIDE RECORDS SUMMARY | 2024-03-20 16:35 | XMS_ITS | Encounter Summary ---
Author Organization [facility] Address [address] [place] [address]. [place], [place] [address] [place] [address] Care Team Providers Care Wood Heel Cementer Name Role Phone Ashley ZUNIGA MD, Hermes Perez Primary Care Provid er Reason for Referral * Imaging (Urgent) - New Request Specialty Diagnoses / Procedures Referred By Contac t Referred To Contact RADIOLOGY Procedures CT THOR SPINE WO CON Maria Isabel Owens NP [address] [place] [address] Phone: tel: fax: Referral ID Status Reason Start Date Expiration Date V isits Requested Visits Authorized [id number] New Request 12/22/2023 12/21/2024 1 1 * Imaging (Emergency) - New Request Specialty Diagnoses / Procedures Referred By Contac t Referred To Contact RADIOLOGY Procedures CT LUMB SPINE WO CON Maria Isabel Owens NP [address] [place] [address] Phone: tel: fax: Referral ID Status Reason Start Date Expiration Date V isits Requested Visits Authorized [id number] New Request 12/22/2023 12/21/2024 1 1 Reason for Visit * Reason Comments Fall Back Pain Hip Pain Encounter Details Date Type Department Care Team (Late st Contact Info) Description 12/22/2023 12:12 PM CDT - 12/22/2023 3:09 PM CDT Emergency [facility] [address] [place] [address] Maria Isabel Owens NP [address] [place] [address] Fall; Back Pain; Hip Pain Discharge Disposition: [...] on file Legal Sex Female 9:15 PM ARTIFICIAL BREAST FABRICATOR Gender Identity Not on file Sexual Orientation [...] through Care Everywhere. * Contusion Discharge Instructions (Macanese) * Muscle and Bone Pain Discharge Instructions (Macanese) documented in this encounter Medications at Time [...] encounter ED Notes * Maria Isabel Owens, RETAIL STORE ASSISTANT - 12/22/2023 12:49 PM CDT Chief Complaint [...] SPINE WO CON Final Result by User, [id number] (12/21 1431) [address] [address] [address] of the LUMBAR SPINE without contrast. [...] SPINE WO CON Final Result by User, [id number] (12/22 1419) [address] [address] [address] of the THORACIC SPINE without contrast. [...] KNEE JULITO 3V Final Result by User, [id number] (12/21 2978) [address] [address] EXAMINATION: XR KNEE JULITO 3V HISTORY: BILATERAL [...] OR 2 VIEWS Final Result by User, [id number] (12/21 1328) [address] [address] Examination: XR PELVIS 1 OR 2 VIEWS [...] pain level remains significantly elevated. Patient offered [place] tablet, p.o. Valium for further pain relief [...] 2:16 PM Narrative 12/22/2023 2:19 PM CDT [address] [address] [address] of the THORACIC SPINE without contrast. [...] Procedure Note Marlys Jovel MD - 12/22/[address] [address] [address] of the THORACIC SPINE without contrast. [...] appears to slightly narrow the spinal canal [id number] and to a lesser extent at T3-4 and T4-5. There is no severe bonyneural foraminal or spinal canal narrowing at any level. Limitednoncontrast images of the visualized soft tissues reveal no acuteappearing abnormality. Impression: No evidence of acute fracture or traumatic malalignment of the thoracicspine. Ordered By: MARIA ISABEL OWENS Interpreted By: Marlys Jovel MD, 12/22/2023 2:16 PM us Maria Isabel Owens RETAIL STORE ASSISTANT CT Final Resul t * CT LUMB [...] 2:20 PM Narrative 12/22/2023 2:30 PM CDT [address] [address] [address] of the LUMBAR SPINE without contrast. [...] Procedure Note Marlys Jovel MD - 12/22/2023 [facility] [address] [place], [place] [address] CT of the LUMBAR SPINE without contrast. [...] MD, 12/22/2023 2:20 PM Maria Isabel Owens RETAIL STORE ASSISTANT CT Final Resul t * XR PELVIS [...] 1:15 PM Narrative 12/22/2023 1:18 PM CDT [address] [address] Examination: XR PELVIS 1 OR 2 VIEWS [...] Procedure Note Brown Marina DO - 12/22/[address] [address] Examination: XR PELVIS 1 OR 2 VIEWS [...] 1:15 PM Narrative 12/22/2023 1:17 PM CDT [address] [address] EXAMINATION: XR KNEE JULITO 3V HISTORY: BILATERAL KNEE PAIN AFTER FALL COMPARISON: No comparison. TECHNIQUE: 3 views of the bilateral knees. FINDINGS: No fracture or dislocation is seen bilaterally. Joint spaces are normal bilaterally. No destructive bone lesions. No joint effusion or soft tissue abnormality. Procedure Note Gabriel Alberto MD - 12/22/[address] [address] EXAMINATION: XR KNEE JULITO 3V HISTORY: BILATERAL [...] RN) documented in this encounter Care Teams Wood Heel Cementer Relationship Specialty Start Date End Date Hermes Ramirez III, MD [address] [address] PCP - General FAMILY PRACTICE 06/20/17 documented as of this encounter
--- OUTSIDE RECORDS SUMMARY | 2024-03-20 16:35 | XMS_ITS | Encounter Summary ---
Author Organization [facility] Address [address] [place] [address]. [place], [place] [address] [place] [address] Care Team Providers Care Physical Education Teacher Name Role Phone Ashley ZUNIGA MD, Hermes Perez Primary Care Provid er Reason for Visit * Reason Comments Headache Encounter Details Date Type Department Care Team (Late st Contact Info) Description 12/02/2021 11:39 AM CDT - 12/02/2021 1:26 PM CDT Emergency [place] [facility] [address] [facility] [place] [address] Kings Ardon MD [address] [place] [address] Headache Discharge Disposition: Home or Self Care [...] on file Legal Sex Female 9:15 PM INTERNATIONAL TRADE MANAGER Gender Identity Not on file Sexual [...] Care Everywhere. * Headache Discharge Instructions, Adult (Samoan) documented in this encounter Medications at Time [...] RN) documented in this encounter Care Teams Physical Education Teacher Relationship Specialty Start Date End Date Hermes Ramirez III, MD [address] [facility] 105 [place] [address] PCP - General FAMILY PRACTICE 06/20/17 documented as of this encounter
--- OUTSIDE RECORDS SUMMARY | 2024-03-20 16:35 | XMS_ITS | Encounter Summary ---
Author Organization [facility] Address [address] [place] [address]. [place], [place] [address] [place] [address] Care Team Providers Care Apprentice Embalmer Name Role Phone Ashley ZUNIGA MD, Hermes [...] on file Legal Sex Female 9:15 PM TOOLROOM CHECKER Gender Identity Not on file Sexual Orientation Not on file documented as of this encounter Plan of Treatment Not on file documented as of this encounter Visit Diagnoses Not on filedocumented in this encounter Care Teams Apprentice Embalmer Relationship Specialty Start Date End Date Hermes Ramirez III, MD [address] [facility] 105 [place] [address] PCP - General FAMILY PRACTICE 06/20/17 documented as of this encounter
--- OUTSIDE RECORDS SUMMARY | 2024-03-20 16:35 | XMS_ITS | Encounter Summary ---
Author Organization [facility] Address [address] [place] [address]. 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 No / Unsure 04/26/2022 10:57 AM PARKING ENFORCER documented as of this encounter Plan of Treatment Not on file documented as of this encounter Visit Diagnoses Not on filedocumented in this encounter Care Teams Fine Dining Server Relationship Specialty Start Date End Date Hermes Ramirez III, MD [address] [facility] 105 [place] [address] PCP - General FAMILY PRACTICE 06/20/17 documented as of this encounter
--- OUTSIDE RECORDS SUMMARY | 2024-03-20 16:35 | XMS_ITS | Encounter Summary ---
Author Organization [facility] Address [address] [place] [address]. 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 * Migraines Discharge Instructions (Citizen [place]) * Migraine in adults (Citizen [place]) * Home Headache Remedies (Citizen [place]) documented in this encounter [...] unspecified documented in this encounter Care Teams Underpresser Hand Relationship Specialty Start Date End Date Hermes Ramirez III, MD [address] [facility] [place] [place] [address] PCP - General FAMILY PRACTICE 06/20/17 documented as of this encounter
--- OUTSIDE RECORDS SUMMARY | 2024-03-20 16:35 | XMS_ITS | Encounter Summary ---
Author Organization [facility] Address [address] [place] [address]. [place], [place] [address] [place] [address] Care Team Providers Care Boiler Inspector Name Role Phone Ashley ZUNIGA MD, Hermes Perez Primary Care Provid er Reason for Visit * Reason Comments Headache Nausea Encounter Details Date Type Department Care Team (Late st Contact Info) Description 04/26/2022 11:36 AM [employer] - 04/26/2022 11:53 AM [employer] Emergency [facility] Emergency [address] [place] [address] Aneta Menjivar MD [address] [place] [address] Headache; Nausea Discharge Disposition: Left Against Medical Advice Social History Tobacco Use Types Packs/Day Years Used Date Smoking Tobacco: Every Day Cigarettes 0.5 15 Smokeless Tobacco: Never Alcohol Use Standard Drinks/Week Comments No 0 (1 standard drink = 0.6 oz pur e alcohol) Comments No Sex and Gender Information Value Date Recorded Sex Assigned at Not on file Legal Sex Female 9:15 PM [employer] Gender Identity Not on file Sexual Orientation Not on file COVID-19 Exposure Response Date Recorded In the last 10 days, have yo u been in contact with someone who was confirmed or suspected to have Coronavirus/COVID-19? No / Unsure 04/26/2022 10:57 AM [employer] documented as of this encounter Last Filed Vital Signs Vital Sign Reading Time Taken Comments Blood Pressure 121/74 04/26/2022 11:08 AM [employer] Pulse 80 04/26/2022 11:08 AM [employer] Temperature 37.2 ??C (99 ??F) 04/26/2022 11:08 AM [employer] Respiratory Rate 16 04/26/2022 11:08 AM [employer] Oxygen Saturation 100% 04/26/2022 11:08 AM [employer] Inhaled Oxygen Concentration - - Weight 83 kg (182 lb 15.7 oz) 04/26/2022 11:08 A M [employer] Height 157.5 cm (5' 2 ) 04/26/2022 11:08 AM [employer] Body Mass Index 33.47 04/26/2022 11:08 AM [employer] documented in this encounter Medications at Time [...] MD 04/27/2022 Aneta Menjivar MD 04/27/22 [address] [employer] * Makenna Silva RN - 04/26/2022 10:57 AM CST PT ARRIVES TO TRIAGE WITH C/O MIGRAINE AND NAUSEA SINCE LAST NIGHT. [employer] documented in this encounter Plan of Treatment Not on file documented as of this encounter Visit Diagnoses Diagnosis Headache- Primary Chronic pain Other chronic pain documented in this encounter Care Teams Boiler Inspector Relationship Specialty Start Date End Date Hermes Ramirez III, MD [address] [address] PCP - General FAMILY PRACTICE 06/20/17 documented as of this encounter
--- OUTSIDE RECORDS SUMMARY | 2024-03-20 16:35 | XMS_ITS | Encounter Summary ---
Author Organization [facility] Address [address] [place] [address]. [place] [address] [place] [address] Care Team Providers Care Cytology Laboratory Manager Name Role Phone Ashley ZUNIGA MD, Hermes Perez Primary Care Provid er Encounter Details Date Type Department Care Team (Latest Contact Info) Description 06/20/2022 5:58 PM CDT - 06/20/2022 11:59 PM CDT Hospital Encounter [facility] [address] [place] [address] Sekou Bob MD [address] [place] [address] Discharge Disposition: Home or Self [...] on file Legal Sex Female 9:15 PM NECKTIE MAKER Gender Identity Not on file Sexual [...] SPECIMEN CERVICAL/END OCERVICAL 06/22/2022 8:18 AM CDT [facility] HPV DNA HIGH RISK NEGATIVE NEGATIVE 06/22/2022 7:35 PM CDT [facility] Comment:SEE CYTOLOGY REPORT 06/20/2022 12:0 0 PM CDT us Sekou Bob MD PATHOLOGY/CYTOLOGY ORDER KAREN Final Result [facility] [address] [place] [id number], * Cytopath Cerv/Vag Thin Layer (06/20/2022 7:46 AM CDT) THIN PREP PAP ? [facility] ?[address] ?[place] [address] ? Department of Pathology ? Pathology Report ? CERVICAL/VAGINAL PAP SMEAR REPORT Name: MISHA JACKSON A ? Age: 7 1980 (Age: 41) ?Location: [facility] Sex: F ?Collected Date: 06/20/2022 [facility] #: [id number] ?Date Received: 06/22/2022 Date Reported: 06/24/2022 Provider: [...] Cohen (ASCP) CLINICAL HISTORY Z12.4 PAP HISTORY-NILM TEST BORER SURGICAL HISTORY-HPV+ 05/17/16 LASER/CRYOTHERAPY ThinPrep Pap Test [...] is not effective in detecting cervical adenocarcinoma. [facility] 06/20/2022 7:46 AM CDT 06/22/2022 7:46 AM CDT Comment:CERVICAL/ENDOCERVICA L us Sekou Bob MD PATHOLOGY/CYTOLOGY ORDER KAREN Final Result [facility] () [facility] [address] [place] [address], documented in this encounter Visit Diagnoses Not on filedocumented in this encounter Care Teams Cytology Laboratory Manager Relationship Specialty Start Date End Date Hermes Ramirez III, MD [address] [facility] [address] [place] [address] PCP - General FAMILY PRACTICE 06/20/17 documented as of this encounter
--- OUTSIDE RECORDS SUMMARY | 2024-03-20 16:35 | XMS_ITS | Encounter Summary ---
Author Organization [facility] Address [address] [place] [address]. [place], [place] [address] [place] [address] Care Team Providers Care Sales Advisor Name Role Phone Ashley ZUNIGA MD, Hermes Perez Primary Care Provid er Reason for Visit * Reason Comments Headache Encounter Details Date Type Department Care Team (Late st Contact Info) Description 12/09/2023 5:41 AM CDT - 12/09/2023 6:32 AM CDT Emergency [facility] [address] [place] [address] Cynthia Tejada, POLISH MAKER [address] [place], [place] [address] Headache Discharge Disposition: Home or Self Care [...] file Legal Sex Female 9:15 PM TIRE BEADER MAKER Gender Identity Not on file Sexual [...] through Care Everywhere. * Migraine in adults (Cymro) documented in this encounter Medications at Time [...] encounter ED Notes * Cynthia Shlomo Tejada, POLISH MAKER - 12/09/2023 5:54 AM CDT Chief Complaint [...] declined) documented in this encounter Care Teams Sales Advisor Relationship Specialty Start Date End Date Hermes Ramirez III, MD [address] [facility] 105 [place] [address] PCP - General FAMILY PRACTICE 06/20/17 documented as of this encounter
--- OUTSIDE RECORDS SUMMARY | 2024-03-20 16:35 | XMS_ITS | Encounter Summary ---
Author Organization [facility] Address [address] [place] [address]. 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
--- OUTSIDE RECORDS SUMMARY | 2024-03-20 16:35 | XMS_ITS | Encounter Summary ---
Author Organization [facility] Address [address] [place] [address]. [place], [place] [address] [place] [address] Care Team Providers Care Computational Theory Scientist Name Role Phone Ashley ZUNIGA MD, Hermes Perez Primary Care Provid er Reason for Visit * Reason Comments Headache Encounter Details Date Type Department Care Team (Late st Contact Info) Description 07/27/2022 7:24 PM CDT - 07/27/2022 7:47 PM CDT Emergency [facility] [address] [place] [address] [place] [address] Ziyad Hu MD [address] [place] [address] Headache Discharge Disposition: Left Against Medical Advice Social History Tobacco Use Types Packs/Day Years Used Date Smoking Tobacco: Every Day Cigarettes 0.5 15 Smokeless Tobacco: Never Alcohol Use Standard Drinks/Week Comments No 0 (1 standard drink = 0.6 oz pur e alcohol) Comments No Sex and Gender Information Value Date Recorded Sex Assigned at Not on file Legal Sex Female 9:15 PM DOCUMENT IMAGING SPECIALIST Gender Identity Not on file Sexual [...] through Care Everywhere. * Migraines Discharge Instructions (Brazilian) documented in this encounter Medications at Time [...] tablet (10 mg total) by mouth daily. yfhhjxkyfg-iquvwcemoyrrv-tzemzawb (FIORICET) 50-300-40 MG capsule Take by mouth [...] HEADACHE Hermes Ramirez III, MD [address] [facility] [address] [place] [address] As needed New Prescriptions No medications on file Ziyad Hu MD 07/27/221945 documented in this encounter Plan of Treatment Not on file documented as of this encounter Visit Diagnoses Diagnosis Headache- Primary documented in this encounter Care Teams Computational Theory Scientist Relationship Specialty Start Date End Date Hermes Ramirez III, MD [address] [facility] [address] [place] [address] PCP - General FAMILY PRACTICE 06/20/17 documented as of this encounter
--- OUTSIDE RECORDS SUMMARY | 2024-03-20 16:35 | XMS_ITS | Encounter Summary ---
Author Organization [facility] Address [address] [place] [address]. [place], [place] [address] [place] [address] Care Team Providers Care Obiee Obia Solution Architect Name Role Phone Ashley ZUNIGA MD, Hermes Perez Primary Care Provid er Reason for Visit * Reason Comments Headache Recurrent Or Know Dx Migraine Encounter Details Date Type Department Care Team (Late st Contact Info) Description 04/19/2022 9:00 AM OBIEE CONSULTANT - 04/19/2022 11:08 AM OBIEE CONSULTANT Emergency [facility] Emergency [address] [place] [address] Merry Crews, TILLER MAN [address] [place] [address] Headache Recurrent Or Know Dx Migraine Discharge [...] on file Legal Sex Female 9:15 PM OBIEE CONSULTANT Gender Identity Not on file Sexual Orientation Not on file COVID-19 Exposure Response Date Recorded In the last 10 days, have yo u been in contact with someone who was confirmed or suspected to have Coronavirus/COVID-19? No / Unsure 04/19/2022 8:52 AM OBIEE CONSULTANT documented as of this encounter Last Filed Vital Signs Vital Sign Reading Time Taken Comments Blood Pressure 139/102 04/19/2022 11:00 AM OBIEE CONSULTANT Pulse 82 04/19/2022 11:00 AM OBIEE CONSULTANT Temperature 36.9 ??C (98.4 ??F) 04/19/2022 8:55 AM CS T Respiratory Rate 14 04/19/2022 11:00 AM OBIEE CONSULTANT Oxygen Saturation 99% 04/19/2022 11:00 AM OBIEE CONSULTANT Inhaled Oxygen Concentration - - Weight 84 kg (185 lb 3 oz) 04/19/2022 8:58 AM CS T Height 157.5 cm (5' 2 ) 04/19/2022 8:55 AM OBIEE CONSULTANT Body Mass Index 33.87 04/19/2022 8:55 AM OBIEE CONSULTANT documented in this encounter Discharge Instructions * Discharge Instructions* Merry Crews NP - 04/19/2022 10:47 AM OBIEE CONSULTANT Migraine Discharge Instructions 1. Go home and [...] avoid MSG which is commonly found in Luxembourgish foods. 4. Consume at least two liters [...] read and follow additional written instructions provided E CONSULTANT * Attachments The following attachments cannot be sent through Care Everywhere. * How to Keep Track of Your Headaches ([place]an) * Migraines Discharge Instructions ([place]) * Home Headache Remedies ([place]) documented in this encounter Medications at Time [...] my pain is a 3/10 Provider aware E CONSULTANT E CONSULTANT E CONSULTANT documented in this encounter ED Notes * [...] has an appointment with a Neurologist in [place] soon to address her migraines. 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 Possibe critical diagnoses associated with patient's presenting symptoms were discussed with the patient and/or the patient players club representative. Risks and benefits of the proposed diagnostic work up and treatment plan were discussed at the bedside. Patient and/or players club representative verbalized understanding and agreement. Discussed all [...] Follow-up: Hermes Ramirez III, MD [address] [facility] [address] [facility] [address] In 2 weeks For follow up after your ER visit MERRY CREWS NP 04/19/2022 Merry Crews NP 04/19/22 1050 Cosigned by Danish Menjivar MD at 04/19/2022 4:47 PM OBIEE CONSULTANT E CONSULTANT E CONSULTANT * Hilda Cleveland RN - 04/19/2022 8:50 AM CST Pt to ED via POV with c/o having a migraine since last night. She has a known history of this. She is CAOx4 at triage. E CONSULTANT documented in this encounter Plan of Treatment [...] than 25 mg/min. Given 04/19/2022 9:31 AM OBIEE CONSULTANT 25 mg diphenhydrAMINE (BENADRYL) injection 25 mg 25 mg, Intravenous, Once, 1 dose, On Mon04/19/22 at 1015, For IV administration, give no faster than 25 mg/min. Given 04/19/2022 10:22 AM OBIEE CONSULTANT 25 mg HYDROmorphone (DILAUDID) injection 1 mg 1 mg, Intravenous, Once, 1 dose, On Mon04/19/22 at 1015, Administer slowly over at least 2-3 minutes. Given 04/19/2022 10:24 AM OBIEE CONSULTANT 1 mg morphine injection 2 mg 2 mg, Intravenous, Once, 1 dose, On Mon04/19/22 at 0915 Given 04/19/2022 9:31 AM OBIEE CONSULTANT 2 mg normal saline 0.9 % flush 3-10 mL 3-10 mL, Intravenous, Every 8 hours, First dose on Mon04/19/22 at 0915, Until Discontinued normal saline 0.9 % flush 3-10 mL 3-10 mL, Intravenous, As needed, Line care, Starting on Mon04/19/22 at 0908, Until Mon04/19/22 at 1314 Given 04/19/2022 10:22 AM OBIEE CONSULTANT 10 mLs Given 04/19/2022 9:23 AM OBIEE CONSULTANT 10 mLs ondansetron (ZOFRAN) injection 4 mg 4 mg, Intravenous, Once, 1 dose, On Mon04/19/22 at 0915, IV push over 2-5 minutes. Given 04/19/2022 9:30 AM OBIEE CONSULTANT 4 mg sodium chloride 0.9% bolus infusion 500 mL 500 mL, Intravenous, Administer over 15 Minutes, Once, 1 dose, On Mon04/19/22 at 0915 New Bag 04/19/2022 9:30 AM OBIEE CONSULTANT 500 mLs documented in this encounter Active and Recently Administered Medications Times are shown in OBIEE CONSULTANT. Scheduled Medication Order 04/17/2022 04/18/2022 04/19/2022 diphenhydrAMINE [...] RN) documented in this encounter Care Teams Obiee Obia Solution Architect Relationship Specialty Start Date End Date Hermes Ramirez III, MD [address] [facility] [address] [place] [address] PCP - General FAMILY PRACTICE 06/20/17 documented as of this encounter
--- OUTSIDE RECORDS SUMMARY | 2024-03-20 16:35 | XMS_ITS | Encounter Summary ---
Author Organization [facility] Address [address] [place] [address]. [place], [place] [address] [place] [address] Care Team Providers Care Cotton Puller Name Role Phone Ashley ZUNIGA MD, Hermes [...] on file Legal Sex Female 9:15 PM CREDIT RISK MODELER Gender Identity Not on file Sexual Orientation Not on file COVID-19 Exposure Response Date Recorded In the last 10 days, have yo u been in contact with someone who was confirmed or suspected to have Coronavirus/COVID-19? No / Unsure 04/19/2022 8:52 AM CREDIT RISK MODELER documented as of this encounter Plan of Treatment Not on file documented as of this encounter Visit Diagnoses Not on filedocumented in this encounter Care Teams Cotton Puller Relationship Specialty Start Date End Date Hermes Ramirez III, MD [address] [facility] [address] [place] [address] PCP - General FAMILY PRACTICE 06/20/17 documented as of this encounter
--- OUTSIDE RECORDS SUMMARY | 2024-03-20 16:35 | XMS_ITS | Encounter Summary ---
Author Organization [facility] Address [address] [place] [address]. [place], [place] [address] [place] [address] Care Team Providers Care Brain Picker Name Role Phone Ashley ZUNIGA MD, Hermes Perez Primary Care Provid er Reason for Referral * Imaging (Routine) - Authorized Specialty Diagnoses / Procedures Referred By Contgilmar t Referred To Contact RADIOLOGY Diagnoses Elevated d-dimer Procedures NM LUNG SCAN VENT+PERF Dulce Delaney DO [address] [place] [address] Phone: tel: fax: Referral ID Status Reason Start Date Expiration Date V isits Requested Visits Authorized [id number] Authorized 02/12/2024 03/28/2024 1 1 EQUIPMENT OPERATOR Reason for Visit * Reason Comments Shortness Of Breath Encounter Details Date Type Department Care Team (Late st Contact Info) Description 02/10/2024 3:[address] EQUIPMENT OPERATOR - 02/10/2024 9:[address] EQUIPMENT OPERATOR Emergency [facility] Emergency [address] [place] [address] Danish Menjivar MD [address] [place] [address] Shortness Of Breath Discharge Disposition: [...] file Legal Sex Female 9:[address] EQUIPMENT OPERATOR Gender Identity Not on file Sexual Orientation Not on file documented as of this encounter Last Filed Vital Signs Vital Sign Reading Time Taken Comments Blood Pressure 126/79 02/10/2024 9:[address] EQUIPMENT OPERATOR Pulse 99 02/10/2024 9:[address] EQUIPMENT OPERATOR Temperature 36.8 ??C (98.3 ??F) 02/10/2024 2:52 PM CS T Respiratory Rate 21 02/10/2024 9:[address] EQUIPMENT OPERATOR Oxygen Saturation 95% 02/10/2024 9:[address] EQUIPMENT OPERATOR Inhaled Oxygen Concentration - - Weight 90.9 kg (200 lb 6.4 oz) 02/10/2024 2:[address] EQUIPMENT OPERATOR Height 157.5 cm (5' 2 ) 02/10/2024 2:[address] EQUIPMENT OPERATOR Body Mass Index 36.65 02/10/2024 2:[address] EQUIPMENT OPERATOR documented in this encounter Discharge Instructions * Discharge Instructions* Dulce Delaney DO - 02/10/2024 5:[address] EQUIPMENT OPERATOR PLEASE CALL YOUR PCP NEXT BUSINESS DAY WITH UPDATE AND PROGRESS REPORT AND TO SCHEDULE FOLLOW UP APPOINTMENT. PLEASE RETURN TO THE ER IF YOU GET WORSE OR DEVELOP OTHER CONCERNING SYMPTOMS. Use Lovenox as directed to protect against possible pulmonary embolus until you are able to get an outpatient VQ scan on Monday EQUIPMENT OPERATOR EQUIPMENT OPERATOR EQUIPMENT OPERATOR documented in this encounter Medications at [...] XR CHEST PORTABLE Final Result by User, [id number] (02/09 2033) [facility] [address] [place], [place] [address] Exam: XR CHEST PORTABLE Date: 02/10/2024 3:57 [...] to rule outsepsis and need for admission. [facility] ED Course as of 02/10/242115 Sat [...] 10 mL, Refills: 0 Class: Eprescribe Pharmacy: [facility]#[id number] - [place], [place] - [address] [facility], [facility] [address], (Ph #: [phone]) DULCE DELANEY DO 02/10/2024 Dulce Delaney DO 02/10/242115 EQUIPMENT OPERATOR * Silvina Sosa RN - 02/10/2024 2:50 PM CST Pt arrives to ED for c/o SOB. 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 Pt had elevated d dimer. Unable to get VQ scan in [place]. Pt able totalk in short sentences at triage. EQUIPMENT OPERATOR documented in this encounter Plan of Treatment Scheduled Orders Name Type Priority Associated Diagnoses Orde r Schedule NM LUNG SCAN VENT+PERF NUC MED Routine Elevated d-dimer Expected: 02/12/2024, Expires: 02/09/2025 documented as of this encounter Procedures Procedure Name Priority Date/Time Associated Diagnosis Comments LACTIC ACID W REFLEX (SEPSIS) TIMED 02/10/2024 7:[address] EQUIPMENT OPERATOR LACTIC ACID W REFLEX (SEPSIS) STAT 02/10/2024 4:[address] EQUIPMENT OPERATOR BASIC METABOLIC PANEL STAT 02/10/2024 4:[address] EQUIPMENT OPERATOR CBC W/DIFF AUTOMATED STAT 02/10/2024 4:[address] EQUIPMENT OPERATOR CULTURE, BACTERIA, BLOOD STAT 02/10/2024 4:[address] EQUIPMENT OPERATOR XR CHEST PORTABLE STAT 02/10/2024 4:[address] EQUIPMENT OPERATOR documented in this encounter Results * LACTIC ACID W REFLEX (SEPSIS) (02/10/2024 7:[address] EQUIPMENT OPERATOR) LACTIC ACID VENOUS 1.4 0.4 - 2.0 MMOL/L 02/10/2024 8:[address] EQUIPMENT OPERATOR [facility] 02/10/2024 7:[address] EQUIPMENT OPERATOR us Danish Menjivar MD LABORATORY Final Result Performing Organization Address [facility] Co de Phone Number [facility] [address] [place] [address], [phone] * (ABNORMAL) LACTIC ACID W REFLEX (SEPSIS) (02/10/2024 4:[address] EQUIPMENT OPERATOR) LACTIC ACID VENOUS 2.7(H) 0.4 - 2.0 MMOL/L 02/10/2024 4:[address] EQUIPMENT OPERATOR [facility] 02/10/2024 4:[address] EQUIPMENT OPERATOR us Danish Menjivar MD LABORATORY Final Result Performing Organization Address [facility] Co de Phone Number [facility] [address] [place] [address], [phone] * (ABNORMAL) BASIC METABOLIC PANEL (02/10/2024 4:[address] EQUIPMENT OPERATOR) SODIUM S/P/B 140 136 - 145 MMOL/L 02/10/2024 4:[address] EQUIPMENT OPERATOR [facility] POTASSIUM S/P/B 4.9 3.5 - 5.1 MMOL/L 02/10/2024 4:44 PM [facility] Comment:SLIGHT HEMOLYSIS, RE SULT MAY BE AFFECTED. CHLORIDE S/P/B 111 97 - 115 MMOL/L 02/10/2024 4:44 PM [facility] CO2 21.9 21.0 - 32.0 MMOL/L 02/10/2024 4:44 PM [facility] GLUCOSE 231(H) 74 - 106 MG/DL 02/10/2024 4:44 PM [facility] BUN 25(H) 7 - 18 MG/DL 02/10/2024 4:44 PM [facility] CREATININE S/P/B 1.94(H) 0.55 - 1.02 MG/DL 02/10/2024 4:44 PM [facility] CALCIUM S/P/B 9.2 8.5 - 10.1 MG/DL 02/10/2024 4:44 PM [facility] ANION GAP 7.1 2.0 - 10.0 MMOL/L 02/10/2024 4:44 PM [facility] OSMOLALITY (CALC) 302 MOSM/KG 024 4:44 PM [facility] Comment:REFERENCE RANGE NOT ESTABLISHED GFR ESTIMATE 33(L) >90 ML/MIN/1. 73 M2 02/10/2024 4:44 PM [facility] GFR NOTES GFR REFERENCE S: 02/10/2024 4:44 PM [facility] Comment: THE ESTIMATED GFR IS [...] FAILURE: <15 ml/min/1.73 m2 02/10/2024 4:[address] EQUIPMENT OPERATOR Danish Menjivar MD LABORATORY Final Result [facility] [address] [place] [address], [phone] * (ABNORMAL) CBC W/DIFF AUTOMATED (02/10/2024 4:[address] EQUIPMENT OPERATOR) WBC 13.31(H) 4.00 - 10.80 x10'3/uL 02/10/2024 4:[address] EQUIPMENT OPERATOR [facility] RBC 3.54(L) 4.10 - 5.40 x10'6/uL 02/10/2024 4:[address] EQUIPMENT OPERATOR [facility] HGB 12.6 12.0 - 16.0 G/DL 02/10/2024 4:[address] EQUIPMENT OPERATOR [facility] HCT 36.0 36.0 - 47.0 % 02/10/2024 4:[address] EQUIPMENT OPERATOR [facility] MCV 101.7(H) 78.0 - 100.0 FL 02/10/2024 4:[address] EQUIPMENT OPERATOR [facility] MCH 35.6(H) 27.0 - 31.0 PG 02/10/2024 4:[address] EQUIPMENT OPERATOR [facility] MCHC 35.0 33.0 - 36.0 G/DL 02/10/2024 4:[address] EQUIPMENT OPERATOR [facility] RDW 12.8 11.5 - 14.5 % 02/10/2024 4:[address] EQUIPMENT OPERATOR [facility] PLT 107(L) 150 - 350 x10'3/uL 02/10/2024 4:26 PM [facility] MPV 11.2(H) 7.4 - 10.4 FL 02/10/2024 4:26 PM [facility] DIFFERENTIAL TYPE AUTOMATED DIFFERENTIAL 02/10/2024 4:26 PM [facility] SEG NEUTROPHILS 93.1 % 4:26 PM [facility] LYMPHOCYTES 1.9 % 02/10/2024 4:26 PM [facility] MONOCYTES 3.9 % 02/10/2024 4:26 PM [facility] EOSINOPHILS 0.0 % 02/10/2024 4:26 PM [facility] BASOPHILS 0.2 % 02/10/2024 4:26 PM [facility] IMMATURE GRANS % 0.9 % 02/10/20 4:26 PM [facility] ABS. NEUTROPHILS 12.40(H) 1.60 - 8.30 x10'3/uL 02/10/2024 4:26 PM [facility] ABS. LYMPHOCYTES 0.25(L) 0.80 - 4.70 x10'3/uL 02/10/2024 4:26 PM [facility] ABS. MONOCYTES 0.52 0.00 - 1.50 x10'3/uL 02/10/2024 4:26 PM [facility] ABS. EOSINOPHILS 0.00 0.00 - 0.40 x10'3/uL 02/10/2024 4:26 PM [facility] ABS. BASOPHILS 0.02 0.00 - 0.20 x10'3/uL 02/10/2024 4:26 PM [facility] ABS. IMMATURE GRANULOCYTES 0.12(H) 0.00 - 0.03 x10'3/uL 02/10/2024 4:26 PM [facility] ABS. NUCLEATED RBC'S 0.00 0.00 - 0.01 x10'3/uL 02/10/2024 4:26 PM [facility] NRBC % 0.0 % 02/10/2024 4:26 PM [facility] 02/10/2024 4:[address] EQUIPMENT OPERATOR Danish Menjivar MD LABORATORY Final Result Performing Organization Address [facility] Co de Phone Number [facility] [address] [place] [address], [place] [phone] * BLOOD CULTURE #1 (02/10/2024 4:[address] EQUIPMENT OPERATOR) SPEC DESCRIPTION BLOOD 02/10/2024 3:[address] EQUIPMENT OPERATOR [facility] SPECIAL REQUESTS NO SPECIAL REQUEST 02/10/2024 3:[address] EQUIPMENT OPERATOR [facility] CULTURE RESULT NO GROWTH 5 DAYS 02/15/2024 8:[address] EQUIPMENT OPERATOR [facility] BLOOD SPECIMEN OBTAINED FOR BLOOD CULTURE / Unknown 02/10/2024 4:[address] EQUIPMENT OPERATOR 02/10/2024 4:[address] EQUIPMENT OPERATOR Danish Menjivar MD MICROBIOLOGY - GENERAL ORDER KAREN Final Result Performing Organization Address [facility] Co de Phone Number [facility] [address] [place] [address], [place] [phone] * XR CHEST PORTABLE (02/10/2024 4:[address] EQUIPMENT OPERATOR) Anatomical Region Laterality Modality Chest Radiographic Katy ging 02/10/2024 4:[address] EQUIPMENT OPERATOR Impressions 02/10/2024 4:[address] EQUIPMENT OPERATOR Impression: No acute pulmonary process. Dictated By: Allen Woods MD on 02/10/2024 4:02 PM The attending radiologist has reviewed the image(s) and agrees with the content of this report. Ordered By: DANISH MENJIVAR Interpreted By: Allen Woods MD, 02/10/2024 4:02 PM Narrative 02/10/2024 4:[address] EQUIPMENT OPERATOR [facility] [address] [place], [place] [address] Exam: XR CHEST PORTABLE Date: 02/10/2024 3:57 PM Comparison: CT thoracic spine 12/22/2023 and chest radiograph 03/30/2020 and 04/02/2017 Technique: AP view the chest History: Shortness of breath. Cough. Findings: Cardiomediastinal silhouette is mildly prominent but still within normal limits. No pneumothorax or sizable pleural effusion. No consolidations. Procedure Note Vahid Gomez MD - 02/10/2024 [facility] [address] [place], [place] [address] Exam: XR CHEST PORTABLE Date: 02/10/2024 3:57 [...] over 1 hour Given 02/10/2024 4:[address] EQUIPMENT OPERATOR 10 mg diphenhydrAMINE (BENADRYL) capsule 25 mg 25 mg, Oral, Once, 1 dose, On 02/10/24 at 1930 Given 02/10/2024 7:[address] EQUIPMENT OPERATOR 25 mg diphenhydrAMINE (BENADRYL) injection 25 mg 25 mg, Intravenous, Once, 1 dose, On 02/10/24 at 1600, For IV administration, give no faster than 25 mg/min. Given 02/10/2024 4:[address] EQUIPMENT OPERATOR 25 mg enoxaparin (LOVENOX) 100 mg/mL syringe 100 mg 100 mg (rounded from 90.9 mg = 1 mg/kg ? 90.9 kg), Subcutaneous, Once, 1 dose, On 02/10/24 at 1600, Administer by deep SubQ injection alternating between the left or right anterolateral and left or right posterolateral abdominal wall. Given 02/10/2024 5:[address] EQUIPMENT OPERATOR 100 mg Left Lower Abdomen fentaNYL (SUBLIMAZE) injection 50 mcg 50 mcg, Intravenous, Once, 1 dose, On 02/10/24 at 1600, If intravenous (IV) route has been ordered, give over 1-2 minutes. Given 02/10/2024 5:[address] EQUIPMENT OPERATOR 50 mcg HYDROmorphone (DILAUDID) injection 1 mg 1 mg, Intravenous, Once, 1 dose, On 02/10/24 at 1830, Administer slowly over at least 2-3 minutes. Given 02/10/2024 6:[address] EQUIPMENT OPERATOR 1 mg hydrOXYzine (ATARAX) tablet 25 mg 25 mg, Oral, Once, 1 dose, On 02/10/24 at 2115 Given 02/10/2024 9:[address] EQUIPMENT OPERATOR 25 mg ipratropium-albuterol (DUONEB) 0.5-2.5 (3) MG/3ML nebulizer solution 3 mL 3 mL, Nebulization, Once, 1 dose, On 02/10/24 at 1830 Given 02/10/2024 6:[address] EQUIPMENT OPERATOR 3 mLs morphine injection 4 mg 4 mg, Intravenous, Once, 1 dose, On 02/10/24 at 1815 Given 02/10/2024 6:[address] EQUIPMENT OPERATOR 4 mg normal saline 0.9 % flush 3-10 mL 3-10 mL, Intravenous, Every 8 hours, First dose on 02/10/24 at 1600, Until Discontinued Given 02/10/2024 5:[address] EQUIPMENT OPERATOR 10 mLs normal saline 0.9 % flush 3-10 mL 3-10 mL, Intravenous, As needed, Line care, Starting on 02/10/24 at 1547, Until 02/10/24 at 2322 sodium chloride 0.9% bolus infusion 1,000 mL 1,000 mL, Intravenous, Administer over 15 Minutes, Once, 1 dose, On 02/10/24 at 1800 New Bag 02/10/2024 5:[address] EQUIPMENT OPERATOR 1,000 mLs 4000 mL/hr documented in this encounter Active and Recently Administered Medications Times are shown in ROAD EQUIPMENT OPERATOR. Scheduled Medication Order 02/08/2024 02/09/2024 02/10/2024 albuterol [...] 1838 (Given - Provid er: Stefania Turner, COUNTY CORONER) metoclopramide (REGLAN) injection 10 mg 10 mg, [...] 2322 documented in this encounter Care Teams Brain Picker Relationship Specialty Start Date End Date Hermes Ramirez III, MD [address] [address] PCP - General FAMILY PRACTICE 06/20/17 documented as of this encounter
--- OUTSIDE RECORDS SUMMARY | 2024-03-20 16:35 | XMS_ITS | Encounter Summary ---
Author Organization [facility] Address [address] [place] [address]. 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 * Low back pain in adults (Citizen Of [place]) documented in this encounter Medications at Time [...] of this encounter ED Notes * Chuckie Arana MD - 07/22/2023 5:48 PM CDT Emergency [...] 15 tablet, Refills: 0 Class: Eprescribe Pharmacy: [facility]#[id number] - [place], [place] - [address] [facility] & [address] [place] [address], (Ph #: [phone]) Disposition: Discharge Follow-Up: Hermes Ramirez III, MD [address] [place] [address] [facility] [address] As needed Chuckie Arana MD 07/22/2023 5:58 PM Chuckie Arana MD 07/22/23 0448 * Shea Galvez RN - 07/22/2023 5:39 [...] trash.) documented in this encounter Care Teams Extruding Press Operator Relationship Specialty Start Date End Date Hermes Ramirez III, MD [address] [address] PCP - General FAMILY PRACTICE 06/20/17 documented as of this encounter
--- OUTSIDE RECORDS SUMMARY | 2024-03-20 16:35 | XMS_ITS | Encounter Summary ---
Author Organization [facility] Address [address] [place] [address]. 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
--- OUTSIDE RECORDS SUMMARY | 2024-03-20 16:35 | XMS_ITS | Encounter Summary ---
Author Organization [facility] Address [address] [place] [address]. 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 * Migraines Discharge Instructions (Italian) documented in this encounter [...] this encounter ED Notes * Cynthia Tejada, POSTAL SUPERVISOR - 12/08/2023 11:09 PM CDT Chief Complaint [...] medical history Problems Addressed: Kidney transplant recipient ([facility]): chronic illness or injury Liver transplant recipient ([facility]): chronic illness or injury Migraine: chronic illness [...] Clinical Impression Migraine (Primary) Liver transplant recipient ([facility]) Kidney transplant recipient ([facility]) Disposition: Discharge Cynthia Tejada APRN 12/08/232358 Cosigned [...] mention of status migrainosus Liver transplant recipient ([facility]) Kidney transplant recipient ([facility]) documented in this encounter Administered Medications Inactive [...] 2315, Until Discontinued 2330 (Given - Provider: Sarha Barraza, ANSON) ondansetron (ZOFRAN) injection 4 mg [...] 0204 documented in this encounter Care Teams Residential Child Care Counselor Relationship Specialty Start Date End Date Hermes Ramirez III, MD [address] [facility] [address] [place] [address] PCP - General FAMILY PRACTICE 06/20/17 documented as of this encounter
--- OUTSIDE RECORDS SUMMARY | 2024-03-20 16:35 | XMS_ITS | Encounter Summary ---
Author Organization [facility] Address [address] [place] [address]. 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
--- OUTSIDE RECORDS SUMMARY | 2024-03-20 16:35 | XMS_ITS | Encounter Summary ---
Author Organization [facility] Address [address] [place] [address]. 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
--- OUTSIDE RECORDS SUMMARY | 2024-03-20 16:35 | XMS_ITS | Encounter Summary ---
Author Organization [facility] Address [address] [place] [address]. 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
--- OUTSIDE RECORDS SUMMARY | 2024-03-20 16:35 | XMS_ITS | Encounter Summary ---
Author Organization [facility] Address [address] [place] [address]. 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
--- OUTSIDE RECORDS SUMMARY | 2024-03-20 16:35 | XMS_ITS | Encounter Summary ---
Author Organization [facility] Address [address] [place] [address]. [place], [place] [address] [place] [address] Care Team Providers Care Aircraft Design Engineer Name Role Phone Ashley ZUNIGA MD, Hermes Perez Primary Care Provid er Reason for Referral * Imaging (Urgent) - New Request Specialty Diagnoses / Procedures Referred By Contac t Referred To Contact RADIOLOGY Procedures NM LUNG SCAN VENT+PERF Maria Isabel Owens NP [address] [place] [address] Phone: tel: fax: Referral ID Status Reason Start Date Expiration Date V isits Requested Visits Authorized [id number] New Request 02/12/2024 02/11/2025 1 1 LER SECTIONS ASSEMBLER * Imaging (Urgent) - New Request Specialty Diagnoses / Procedures Referred By Contac t Referred To Contact RADIOLOGY Procedures CT CHEST WO CON Maria Isabel Owens NP [address] [place] [address] Phone: tel: fax: Referral ID Status Reason Start Date Expiration Date V isits Requested Visits Authorized [id number] New Request 02/12/2024 02/11/2025 1 1 LER SECTIONS ASSEMBLER Reason for Visit * Reason Comments Headache Shortness Of Breath Generalized Body Aches Encounter Details Date Type Department Care Team ([facility] st Contact Info) Description 02/12/2024 12:14 PM TRAILER SECTIONS ASSEMBLER - 02/12/2024 5:07 PM TRAILER SECTIONS ASSEMBLER Emergency [facility] Emergency [address] [place] [address] Maria Isabel Owens NP [address] [place] [address] Headache; Shortness Of Breath ; Generalized Body [...] on file Legal Sex Female 9:15 PM TRAILER SECTIONS ASSEMBLER Gender Identity Not on file Sexual Orientation Not on file documented as of this encounter Last Filed Vital Signs Vital Sign Reading Time Taken Comments Blood Pressure 118/73 02/12/2024 4:51 PM TRAILER SECTIONS ASSEMBLER Pulse 101 02/12/2024 4:51 PM TRAILER SECTIONS ASSEMBLER Temperature 36.6 ??C (97.8 ??F) 02/12/2024 12:[address] Respiratory Rate 23 02/12/2024 4:51 PM TRAILER SECTIONS ASSEMBLER Oxygen Saturation 91% 02/12/2024 4:51 PM TRAILER SECTIONS ASSEMBLER Inhaled Oxygen Concentration - - Weight 91.7 kg (202 lb 2.6 oz) 02/12/2024 12:00 PM TRAILER SECTIONS ASSEMBLER Height 157.5 cm (5' 2 ) 02/12/2024 12:00 PM TRAILER SECTIONS ASSEMBLER Body Mass Index 36.98 02/12/2024 12:00 PM TRAILER SECTIONS ASSEMBLER documented in this encounter Medications at Time [...] rhinovirus on Monday. Patient denies hx asthma. LER SECTIONS ASSEMBLER documented in this encounter Plan of Treatment Not on file documented as of this encounter Procedures Procedure Name Priority Date/Time Associated Diagnosis Comments ECG 12-LEAD STAT 02/12/2024 3:41 PM TRAILER SECTIONS ASSEMBLER PRO-BRAIN NATRIURETIC PEPTIDE STAT 02/12/2024 2:53 PM TRAILER SECTIONS ASSEMBLER COMPREHENSIVE METABOLIC PANEL STAT 02/12/2024 2:53 PM TRAILER SECTIONS ASSEMBLER LACTIC ACID TIMED 02/12/2024 2:53 PM TRAILER SECTIONS ASSEMBLER CBC W/DIFF AUTOMATED STAT 02/12/2024 2:53 PM TRAILER SECTIONS ASSEMBLER TROPONIN, QUANT STAT 02/12/2024 2:53 PM TRAILER SECTIONS ASSEMBLER NM LUNG SCAN VENT+PERF STAT 2:11 PM TRAILER SECTIONS ASSEMBLER CT CHEST WO CON STAT 02/12/2024 1:14 PM TRAILER SECTIONS ASSEMBLER documented in this encounter Results * ECG 12 lead (02/12/2024 3:41 PM TRAILER SECTIONS ASSEMBLER) 02/12/2024 3:41 PM TRAILER SECTIONS ASSEMBLER Narrative [facility] - 02/13/2024 3:58 AM TRAILER SECTIONS ASSEMBLER ?SJS-ED ? Test Date: ?2024-02-12 Pat Name: ? MISHA BROWNE ?Department: ?? 70 ? Room: ? RL0879 Gender: ? Female ? Electrical Unit Rebuilder: ?? : ?1980 ? Requested By: MARIA ISABEL ALEKSEYLUBA Order Number: [id number] ? Reading MD: ?? Bernard Mario ? Measurements Intervals ?[place] ? Rate: ? 109 ?P: ?140 WI: ? 177 ?QRS: ?-12 QRSD: ? 74 ? T: ?80 QT: ? 338 ? QTc: ?455 ? Interpretive Statements ECTOPIC ATRIAL TACHYCARDIA LEFT ATRIAL ENLARGEMENT ??[-0.15mV P-WAVE IN V1/V2] LOW QRS VOLTAGE IN PRECORDIAL LEADS ??[QRS DEFLECTION < 1.0 mV IN CHEST LEADS] ANTEROSEPTAL MYOCARDIAL INFARCTION , OF INDETERMINATE AGE [40+ ms Q WAVE IN V1-V4] LER SECTIONS ASSEMBLER Procedure Note Bernard Martin MD - 02/13/2024 SJS-ED Test Date: 2024-02-12 Pat Name: MISHA BROWNE Department: 70 Room: [id number] Gender: Female Electrical Unit Rebuilder: : 1980 Requested By: MARIA ISABEL OWENS Order Number: [id number] Reading MD: Bernard Martin Measurements Intervals [place] Rate: 109 P: 140 WI: 177 QRS: -12 QRSD: 74 T: 80 QT: 338 QTc: 455 Interpretive Statements ECTOPIC ATRIAL TACHYCARDIA LEFT ATRIAL ENLARGEMENT [-0.15mV P-WAVE IN V1/V2] LOW QRS VOLTAGE IN PRECORDIAL LEADS [QRS DEFLECTION < 1.0 mV IN CHESTLEADS] ANTEROSEPTAL MYOCARDIAL INFARCTION , OF INDETERMINATE AGE [40+ ms Q WAVEIN V1-V4] LER SECTIONS ASSEMBLER us Maria Isabel Owens FLYING SQUAD SALESPERSON ECG ORDERABLES Final Resul t Performing Organization Address [facility] de Phone Number [facility] * TROPONIN, QUANT (02/12/2024 2:53 PM TRAILER SECTIONS ASSEMBLER) TROPONIN I HIGH SENSITIVITY 7 0 - 53 ng/L 02/12/2024 4:00 PM TRAILER SECTIONS ASSEMBLER [facility] 02/12/2024 2:53 PM TRAILER SECTIONS ASSEMBLER us Maria Isabel Owens NP LABORATORY Final Resul t Performing Organization Address [facility] de Phone Number [facility] [address] [place] [address], [phone] * (ABNORMAL) PRO-BRAIN NATRIURETIC PEPTIDE (02/12/2024 2:53 PM TRAILER SECTIONS ASSEMBLER) Pathologist [facility] PRO-B TYPE NATRIURETIC PEPTIDE 2,468(H) <125 PG/ML 02/12/2024 3:30 PM TRAILER SECTIONS ASSEMBLER [facility] Comment: AGE INDEPENDENT: <300 [...] 72% FOR ACUTE CHF. 02/12/2024 2:53 PM TRAILER SECTIONS ASSEMBLER Maria Isabel Owens FLYING SQUAD SALESPERSON LABORATORY Final Resul t Performing Organization Address City/[facility]/ZIP Co de Phone Number [facility] [address] [place] [address], [phone] * LACTIC ACID - SINGLE (02/12/2024 2:53 PM TRAILER SECTIONS ASSEMBLER) [facility] LACTIC ACID VENOUS 0.8 0.4 - 2.0 MMOL/L 02/12/2024 3:22 PM TRAILER SECTIONS ASSEMBLER [facility] 02/12/2024 2:53 PM TRAILER SECTIONS ASSEMBLER Maria Isabel Owens FLYING SQUAD SALESPERSON LABORATORY Final Resul t [facility] [address] [place] [address], [phone] * (ABNORMAL) COMPREHENSIVE METABOLIC PANEL (02/12/2024 2:53 PM TRAILER SECTIONS ASSEMBLER) Pathologist [facility] SODIUM S/P/B 137 136 - 145 MMOL/L 02/12/2024 3:30 PM TRAILER SECTIONS ASSEMBLER [facility] POTASSIUM S/P/B 4.3 3.5 - 5.1 MMOL/L 02/12/2024 3:30 PM [facility] Comment:SLIGHT HEMOLYSIS, RE SULT MAY BE AFFECTED. CHLORIDE S/P/B 112 97 - 115 MMOL/L 02/12/2024 3:30 PM [facility] CO2 23.1 21.0 - 32.0 MMOL/L 02/12/2024 3:30 PM [facility] GLUCOSE 93 74 - 106 MG/DL 02/12/2024 3:30 PM [facility] BUN 25(H) 7 - 18 MG/DL 02/12/2024 3:30 PM [facility] CREATININE S/P/B 1.75(H) 0.55 - 1.02 MG/DL 02/12/2024 3:30 PM [facility] CALCIUM S/P/B 9.0 8.5 - 10.1 MG/DL 02/12/2024 3:30 PM [facility] BILIRUBIN TOTAL S/P/B 0.7 0.2 - 1.0 MG/DL 02/12/2024 3:30 PM [facility] ALKALINE PHOSPHATASE S/P/B 236(H) 37 - 98 U/L 02/12/2024 3:30 PM [facility] AST 53(H) 15 - 37 U/L 02/12/2024 3:30 PM [facility] ALT 85(H) 13 - 56 U/L 02/12/2024 3:30 PM [facility] TOTAL PROTEIN S/P/B 6.5 6.4 - 8.2 G/DL 02/12/2024 3:30 PM [facility] ALBUMIN S/P/B 3.1(L) 3.4 - 5.0 G/DL 02/12/2024 3:30 PM [facility] ANION GAP 1.9(L) 2.0 - 10.0 MMOL/L 02/12/2024 3:30 PM TRAILER SECTIONS ASSEMBLER [facility] OSMOLALITY (CALC) 288 MOSM/KG 024 3:30 PM TRAILER SECTIONS ASSEMBLER [facility] Comment:REFERENCE RANGE NOT ESTABLISHED GFR ESTIMATE 37(L) >90 ML/MIN/1. 73 M2 02/12/2024 3:30 PM TRAILER SECTIONS ASSEMBLER [facility] GFR NOTES GFR REFERENCE S: 02/12/2024 3:30 PM TRAILER SECTIONS ASSEMBLER [facility] Comment: THE ESTIMATED GFR [...] FAILURE: <15 ml/min/1.73 m2 02/12/2024 2:53 PM TRAILER SECTIONS ASSEMBLER Maria Isabel Owens FLYING SQUAD SALESPERSON LABORATORY Final Resul t [facility] [address] [place] [address], [phone] * (ABNORMAL) CBC W/DIFF AUTOMATED (02/12/2024 2:53 PM TRAILER SECTIONS ASSEMBLER) WBC 7.95 4.00 - 10.80 x10'3/uL 02/12/2024 3:16 PM TRAILER SECTIONS ASSEMBLER [facility] RBC 3.46(L) 4.10 - 5.40 x10'6/uL 02/12/2024 3:16 PM TRAILER SECTIONS ASSEMBLER [facility] HGB 11.9(L) 12.0 - 16.0 G/DL 02/12/2024 3:16 PM TRAILER SECTIONS ASSEMBLER [facility] HCT 36.1 36.0 - 47.0 % 02/12/2024 3:16 PM [facility] MCV 104.3(H) 78.0 - 100.0 FL 02/12/2024 3:16 PM [facility] MCH 34.4(H) 27.0 - 31.0 PG 02/12/2024 3:16 PM [facility] MCHC 33.0 33.0 - 36.0 G/DL 02/12/2024 3:16 PM [facility] RDW 13.4 11.5 - 14.5 % 02/12/2024 3:16 PM [facility] PLT 106(L) 150 - 350 x10'3/uL 02/12/2024 3:16 PM [facility] MPV 10.8(H) 7.4 - 10.4 FL 02/12/2024 3:16 PM [facility] DIFFERENTIAL TYPE AUTOMATED DIFFERENTIAL 02/12/2024 3:17 PM [facility] SEG NEUTROPHILS 75.4 % 3:17 PM [facility] LYMPHOCYTES 14.6 % 02/12/2024 3:17 PM [facility] MONOCYTES 7.5 % 02/12/2024 3:17 PM [facility] EOSINOPHILS 1.3 % 02/12/2024 3:17 PM [facility] BASOPHILS 0.1 % 02/12/2024 3:17 PM [facility] IMMATURE GRANS % 1.1 % 02/12/20 3:17 PM [facility] ABS. NEUTROPHILS 5.99 1.60 - 8.30 x10'3/uL 02/12/2024 3:17 PM [facility] ABS. LYMPHOCYTES 1.16 0.80 - 4.70 x10'3/uL 02/12/2024 3:17 PM [facility] ABS. MONOCYTES 0.60 0.00 - 1.50 x10'3/uL 02/12/2024 3:17 PM TRAILER SECTIONS ASSEMBLER [facility] ABS. EOSINOPHILS 0.10 0.00 - 0.40 x10'3/uL 02/12/2024 3:17 PM TRAILER SECTIONS ASSEMBLER [facility] ABS. BASOPHILS 0.01 0.00 - 0.20 x10'3/uL 02/12/2024 3:17 PM TRAILER SECTIONS ASSEMBLER [facility] ABS. IMMATURE GRANULOCYTES 0.09(H) 0.00 - 0.03 x10'3/uL 02/12/2024 3:17 PM TRAILER SECTIONS ASSEMBLER [facility] ABS. NUCLEATED RBC'S 0.00 0.00 - 0.01 x10'3/uL 02/12/2024 3:17 PM TRAILER SECTIONS ASSEMBLER [facility] NRBC % 0.0 % 02/12/2024 3:17 PM TRAILER SECTIONS ASSEMBLER [facility] 02/12/2024 2:53 PM TRAILER SECTIONS ASSEMBLER us Maria Isabel Owens FLYING SQUAD SALESPERSON [place] [address], [id number] * NM LUNG SCAN VENT+PERF (02/12/2024 2:11 PM TRAILER SECTIONS ASSEMBLER) Anatomical Region Laterality Modality Chest Nuclear Medicine 02/12/2024 2:13 PM TRAILER SECTIONS ASSEMBLER Impressions 02/12/2024 2:18 PM TRAILER SECTIONS ASSEMBLER IMPRESSION: Low probability for acute pulmonary embolism. Referred By: ?? Interpreted By: Shorty Ardon MD, 02/12/2024 2:13 PM Narrative 02/12/2024 2:18 PM TRAILER SECTIONS ASSEMBLER [facility] [address] [place] [address] Ventilation-Perfusion Scintigraphy Exam Date: 02/12/2024. Indications: 43-year-old [...] Procedure Note Shorty Ardon MD - 02/12/[address] [address] Ventilation-Perfusion Scintigraphy Exam Date: 02/12/2024. Indications: 43-year-old [...] CT CHEST WO CON (02/12/2024 1:14 PM TRAILER SECTIONS ASSEMBLER) Anatomical Region Laterality Modality Chest Computed Tomogra phy 02/12/2024 1:15 PM TRAILER SECTIONS ASSEMBLER Impressions 02/12/2024 1:20 PM TRAILER SECTIONS ASSEMBLER Impression: 1. Multifocal hazy groundglass opacities identified throughout both lungs. Findings can be seen in the setting of viral pneumonia. Follow-up to resolution recommended. 2. The partially visualized kidneys appear atrophic. Ordered By: MARIA ISABEL OWENS Interpreted By: Gabriel Alberto MD, 02/12/2024 1:15 PM Narrative 02/12/2024 1:20 PM TRAILER SECTIONS ASSEMBLER [facility] [address] [place], [place] [address] Examination: CT CHEST WO CON Clinical Information: [...] Procedure Note Gabriel Alberto MD - 02/12/2024 [facility] [address] [place], [place] [address] Examination: CT CHEST WO CON Clinical Information: [...] 02/12/2024 1:15 PM us Maria Isabel Owens FLYING SQUAD SALESPERSON CT Final Resul t documented in this [...] Mon02/12/24 at 1315 Given 02/12/2024 1:35 PM TRAILER SECTIONS ASSEMBLER 5 mg diphenhydrAMINE (BENADRYL) injection 25 mg 25 mg, Intravenous, Once, 1 dose, On Mon02/12/24 at 1415, For IV administration, give no faster than 25 mg/min. Given 02/12/2024 2:58 PM TRAILER SECTIONS ASSEMBLER 25 mg diphenhydrAMINE (BENADRYL) injection 25 mg 25 mg, Intravenous, Once, 1 dose, On Mon02/12/24 at 1600, For IV administration, give no faster than 25 mg/min. Given 02/12/2024 3:52 PM TRAILER SECTIONS ASSEMBLER 25 mg ipratropium-albuterol (DUONEB) 0.5-2.5 (3) MG/3ML nebulizer solution 3 mL 3 mL, Nebulization, Once, 1 dose, On Mon02/12/24 at 1315 Given 02/12/2024 1:35 PM TRAILER SECTIONS ASSEMBLER 3 mLs ipratropium-albuterol (DUONEB) 0.5-2.5 (3) MG/3ML nebulizer solution 3 mL 3 mL, Nebulization, Once, 1 dose, On Mon02/12/24 at 1630 Given 02/12/2024 4:30 PM TRAILER SECTIONS ASSEMBLER 3 mLs magnesium sulfate IVPB 2 g 2 g, Intravenous, at 150 mL/hr, Once, 1 dose, On Mon02/12/24 at 1315, Administer over 20 minutes New Bag 02/12/2024 2:59 PM TRAILER SECTIONS ASSEMBLER 2 g 150 mL/hr metaxalone (SKELAXIN) tablet 800 mg 800 mg, Oral, Once, 1 dose, On Mon02/12/24 at 1315 Given 02/12/2024 2:56 PM TRAILER SECTIONS ASSEMBLER 800 mg morphine injection 2 mg 2 mg, Intravenous, Once, 1 dose, On Mon02/12/24 at 1545 Given 02/12/2024 3:52 PM TRAILER SECTIONS ASSEMBLER 2 mg morphine injection 4 mg 4 mg, Intravenous, Once, 1 dose, On Mon02/12/24 at 1315 Given 02/12/2024 2:58 PM TRAILER SECTIONS ASSEMBLER 4 mg normal saline 0.9 % flush [...] Mon02/12/24 at 1700 Given 02/12/2024 5:02 PM TRAILER SECTIONS ASSEMBLER 5 mg technetium tc 99m albumin aggregate (DRAXIMAGE MAA) radio-isotope injection 3.8 millicurie 3.8 millicurie, Intravenous, Once, 1 dose, On Mon02/12/24 at 1345, RADIOPHARMACEUTICAL: Use appropriate precautions for handling & disposal. Follow appropriate safety measures to minimize radiation exposure during administration; use waterproof gloves & effective shielding, including syringe perez. Given 02/12/2024 1:35 PM TRAILER SECTIONS ASSEMBLER 3.8 millicuries xenon Xe 133 radio-isotope gas 23.5 millicurie 23.5 millicurie, Inhalation, Once, 1 dose, On Mon02/12/24 at 1330, Administered by inhalation from closed respirator systems or spirometers; ensure delivery system is leak proof. Do not allow xenon Xe 133 to racking technician tubing or respirator containers. Measure dose with a suitable radioactivity calibration system immediately prior to administration. RADIOPHARMACEUTICAL: Use appropriate precautions for handling & disposal. Follow appropriate safety measures to minimize radiation exposure during administration; use waterproof gloves & effective shielding, including syringe perez. Given 02/12/2024 1:30 PM TRAILER SECTIONS ASSEMBLER 23.5 millicuries documented in this encounter Active and Recently Administered Medications Times are shown in TRAILER SECTIONS ASSEMBLER. Scheduled Medication Order 02/10/2024 02/11/2024 02/12/2024 albuterol [...] 1630 (Given - Provid er: Matheus Washington, FARM MANAGEMENT TEACHER) magnesium sulfate IVPB 2 g (COMPLETED) 2 [...] Do not allow xenon Xe 133 to racking technician tubing or respirator containers. Measure dose with [...] 1907 documented in this encounter Care Teams Aircraft Design Engineer Relationship Specialty Start Date End Date Hermes Ramirez III, MD [address] [facility] [address] [place] [address] PCP - General FAMILY PRACTICE 06/20/17 documented as of this encounter
--- OUTSIDE RECORDS SUMMARY | 2024-03-20 16:35 | XMS_ITS | Encounter Summary ---
Author Organization [facility] Address [address] [place] [address]. [place] [address] [place] [address] Care Team Providers Care Mine Foreman Name Role Phone Ashley ZUNIGA MD, Hermes Perez Primary Care Provid er Reason for Visit * Reason Comments Headache Encounter Details Date Type Department Care Team (Late st Contact Info) Description 10/08/2023 1:27 AM CDT - 10/08/2023 1:34 AM CDT Emergency [facility] [address] [place] [address] [place] [address] Phillip Cook MD [address] [place] [address] Headache Discharge Disposition: Home or Self [...] file Legal Sex Female 9:15 PM SIGN SHOP SUPERVISOR Gender Identity Not on file Sexual [...] through Care Everywhere. * Headache, Adult ED (Ghanaian) documented in this encounter Medications at Time [...] Primary documented in this encounter Care Teams Mine Foreman Relationship Specialty Start Date End Date Hermes Ramirez III, MD [address] [facility] [address] [place] [address] PCP - General FAMILY PRACTICE 06/20/17 documented as of this encounter
--- OUTSIDE RECORDS SUMMARY | 2024-03-20 16:36 | XMS_ITS | Encounter Summary ---
Author Organization [facility] Address [address] [place] [address]. [place], [place] [address] [place] [address] Care Team Providers Care Production Utility Worker Name Role Phone Ashley ZUNIGA MD, Hermes Perez Primary Care Provid er Reason for Visit * Imaging (Routine) - Closed Specialty Diagnoses / Procedures Referred By Esvin gaspar Referred To Contact RADIOLOGY Diagnoses Other fpc (current) drug therapy Kidney transplant status (HHS/HCC) Encounter for aftercare following kidney transplant (HHS/HCC) Liver transplant status (CMS/HCC HHS/HCC) UTI (urinary tract infection) Procedures MRI ABD WWO CON MRI ABD WWO CON Allen Manzano PA [address] [address] Phone: tel: fax: Referral ID Status Reason Start Date Expiration Date Visits Re quested Visits Authorized [id number] Closed 06/02/2021 11/18/2021 1 1 Encounter Details Date Type Department Care Team (Latest Contact Info) Description 06/14/2021 3:50 PM CDT - 06/14/2021 11:59 PM CDT Hospital Encounter [facility] [address] [place] [address] Allen Manzano PA [address] [address] Discharge Disposition: Home or Self [...] file Legal Sex Female 9:15 PM PRODUCT SUPPORT ANALYST Gender Identity Not on file Sexual [...] CON Routine 06/14/2021 5:31 PM CDT Other fpc (current) drug therapy Kidney transplant status (HHS/HCC) [...] further correlate with an MRCP. 2. The [place] kidneys are atrophic bilaterally. No solid mass [...] The right adrenal gland appears unremarkable. KIDNEYS: [place] kidneys appear atrophic with symmetric enhancement. No [...] in this encounter Visit Diagnoses Diagnosis Other equipment operator intermodal yard (current) drug therapy Kidney transplant status (HHS/HCC) [...] mLs documented in this encounter Care Teams Production Utility Worker Relationship Specialty Start Date End Date Hermes Ramirez III, MD [address] [facility] [address] [place] [address] PCP - General FAMILY PRACTICE 06/20/17 documented as of this encounter
--- OUTSIDE RECORDS SUMMARY | 2024-03-20 16:36 | XMS_ITS | Encounter Summary ---
Author Organization [facility] Address [address] [place] [address]. [place], [place] [address] [place] [address] Care Team Providers Care Lead Android Developer Name Role Phone Ashley ZUNIGA MD, [...] on file Legal Sex Female 9:15 PM ADULT SECONDARY EDUCATION INSTRUCTOR Gender Identity Not on file Sexual [...] filedocumented in this encounter Care Teams Lead Android Developer Relationship Specialty Start Date End Date Hermes Ramirez III, MD [address] [facility] [address] [place] [address] PCP - General FAMILY PRACTICE 06/20/17 documented as of this encounter
--- OUTSIDE RECORDS SUMMARY | 2024-03-20 16:36 | XMS_ITS | Encounter Summary ---
Author Organization [facility] Address [address] [place] [address]. [place], [place] [address] [place] [address] Care Team Providers Care Research Chemist Name Role Phone Ashley ZUNIGA MD, Hermes Perez Primary Care Provid er Reason for Visit * Reason Comments Headache Encounter Details Date Type Department Care Team (Late st Contact Info) Description 11/17/2020 10:20 AM CDT - 11/17/2020 12:49 PM CDT Emergency [facility] [address] [place] [address] Daniel Lopez PA-C [address] [place] [address] Headache Discharge Disposition: Home or Self Care [...] on file Legal Sex Female 9:15 PM PELT INSPECTOR Gender Identity Not on file Sexual [...] 4 furosemide 40 MG tabletIndications:Li lorraine transplanted ([facility]) Take 1 tablet (40 mg total) [...] CDT Pt called out 10 min after claim review medical director declared her headache was gone. * Daniel [...] was seen only by the KAMILAH. If vqop-sg-jzap time involving the physician is not documented, the encounter is considered an CHRISTOPHER definitive care visit. MDM Number of Diagnoses [...] RN) documented in this encounter Care Teams Research Chemist Relationship Specialty Start Date End Date Hermes Ramirez III, MD [facility] [address] [address] PCP - General FAMILY PRACTICE 06/20/17 documented as of this encounter
--- OUTSIDE RECORDS SUMMARY | 2024-03-20 16:36 | XMS_ITS | Encounter Summary ---
Author Organization [facility] Address [address] [place] [address]. [place], [place] [address] [place] [address] Care Team Providers Care Sign Language Translator Name Role Phone Ashley ZUNIGA MD, Hermes [...] on file Legal Sex Female 9:15 PM TICKET COLLECTOR Gender Identity Not on file Sexual [...] on filedocumented in this encounter Care Teams Sign Language Translator Relationship Specialty Start Date End Date Hermes Ramirez III, MD [address] [facility] [address] [place] [address] PCP - General FAMILY PRACTICE 06/20/17 documented as of this encounter
--- OUTSIDE RECORDS SUMMARY | 2024-03-20 16:36 | XMS_ITS | Encounter Summary ---
Author Organization [facility] Address [address] [place] [address]. [place], [place] [address] [place] [address] Care Team Providers Care Search Advertising Strategist Name Role Phone Ashley ZUNIGA MD, Hermes Perez Primary Care Provid er Reason for Visit * Reason Onset Date Comments Fax 04/30/2020 Encounter Details Date Type Department Care Team ([facility] Contact Info) Description 04/30/2020 [place] [address] None, Provider, Fax Social History Tobacco Use Types Packs/Day Years Used Date Smoking Tobacco: Every Day Cigarettes 0.5 15 Smokeless Tobacco: Never Alcohol Use Standard Drinks/Week Comments No 0 (1 standard drink = 0.6 oz pur e alcohol) Comments No Sex and Gender Information Value Date Recorded Sex Assigned at Not on file Legal Sex Female 9:15 PM RETAIL SERVICE 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 No / Unsure 04/15/2020 9:53 AM RETAIL SERVICE TECHNICIAN documented as of this encounter Progress Notes * Tara Mckeon - 04/30/2020 1:[address] Diaz called need to get the pt records yuly I believe she said she is on the donor list Can you please fax what she need to request is in the media [place] SERVICE TECHNICIAN documented in this encounter Plan of Treatment Not on file documented as of this encounter Visit Diagnoses Not on filedocumented in this encounter Care Teams Search Advertising Strategist Relationship Specialty Start Date End Date Hermes Ramirez III, MD [address] [facility] 105 [place] [address] PCP - General FAMILY PRACTICE 06/20/17 documented as of this encounter
--- OUTSIDE RECORDS SUMMARY | 2024-03-20 16:36 | XMS_ITS | Encounter Summary ---
Author Organization [facility] Address [address] [place] [address]. [place], [place] [address] [place] [address] Care Team Providers Care Director Orange Name Role Phone Ashley ZUNIGA MD, Hermes Perez Primary Care Provid er Reason for Visit * Reason Onset Date Comments Update 06/09/2020 Encounter Details Date Type Department Care Team (Late st Contact Info) Description 06/09/2020 Telephone [facility] [place] [address] Belinda Us MD [address] [place] [address] Update Social History Tobacco Use Types Packs/Day Years Used Date Smoking Tobacco: Every Day Cigarettes 0.5 15 Smokeless Tobacco: Never Alcohol Use Standard Drinks/Week Comments No 0 (1 standard drink = 0.6 oz pur e alcohol) Comments No Sex and Gender Information Value Date Recorded Sex Assigned at Not on file Legal Sex Female 9:15 PM REHAB ASSISTANT Gender Identity Not on file Sexual Orientation Not on file documented as of this encounter Progress Notes * Belinda Us MD - 06/09/2020 5:43 PM CDT Note from 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 105 [place] [address] PCP - General FAMILY PRACTICE 06/20/17 documented as of this encounter
--- OUTSIDE RECORDS SUMMARY | 2024-03-20 16:36 | XMS_ITS | Encounter Summary ---
Author Organization [facility] Address [address] [place] [address]. [place], [place] [address] [place] [address] Care Team Providers Care Marketing Coordinator Name Role Phone Ashley ZUNIGA MD, Hermes Perez Primary Care Provid er Encounter Details Date Type Department Care Team (Late st Contact Info) Description 06/18/2020 Scan [facility] [address] [place] [address] Scanned, Documents Social History Tobacco Use Types Packs/Day Years Used Date Smoking Tobacco: Every Day Cigarettes 0.5 15 Smokeless Tobacco: Never Alcohol Use Standard Drinks/Week Comments No 0 (1 standard drink = 0.6 oz pur e alcohol) Comments No Sex and Gender Information Value Date Recorded Sex Assigned at Not on file Legal Sex Female 9:15 PM CAR BLOCKER Gender Identity Not on file Sexual Orientation Not on file documented as of this encounter Plan of Treatment Not on file documented as of this encounter Visit Diagnoses Not on filedocumented in this encounter Care Teams Marketing Coordinator Relationship Specialty Start Date End Date Hermes Ramirez III, MD [address] [facility] 105 [place] [address] PCP - General FAMILY PRACTICE 06/20/17 documented as of this encounter
--- OUTSIDE RECORDS SUMMARY | 2024-03-20 16:36 | XMS_ITS | Encounter Summary ---
Author Organization [facility] Address [address] [place] [address]. [place], [place] [address] [place] [address] Care Team Providers Care Student Finance Advisor Name Role Phone Ashley ZUNIGA MD, Hermes Perez Primary Care Provid er Reason for Visit * Reason Onset Date Comments Abnormal Lab Results 04/16/2020 Encounter Details Date Type Department Care Team ([facility] Contact Info) Description 04/16/2020 Telephone [facility] [place] [address] Belinda Us MD [address] [place] [address] Abnormal Lab Results Social History Tobacco Use Types Packs/Day Years Used Date Smoking Tobacco: Every Day Cigarettes 0.5 15 Smokeless Tobacco: Never Alcohol Use Standard Drinks/Week Comments No 0 (1 standard drink = 0.6 oz pur e alcohol) Comments No Sex and Gender Information Value Date Recorded Sex Assigned at Not on file Legal Sex Female 9:15 PM FIELD SALES ENGINEER Gender Identity Not on file Sexual Orientation Not on file COVID-19 Exposure Response Date Recorded In the last month, have you been in contact with someone who was confirmed or suspected to have Coronavirus / COVID-19? No / Unsure 04/15/2020 9:53 AM FIELD SALES ENGINEER documented as of this encounter Progress Notes [...] to her transplant team I reached her branch coordinator Melba who stated patient was reached yesterday and was able togo to [place]. She is admitted She called the clinic back-- provided her new number. Plan is to call The coordinator Melba in about 4 weeks to obtain her discharge summary and determine when next to see her. D SALES ENGINEER documented in this encounter Plan of Treatment Not on file documented as of this encounter Visit Diagnoses Not on filedocumented in this encounter Care Teams Student Finance Advisor Relationship Specialty Start Date End Date Hermes Ramirez III, MD [address] [facility] 105 [place] [address] PCP - General FAMILY PRACTICE 06/20/17 documented as of this encounter
--- OUTSIDE RECORDS SUMMARY | 2024-03-20 16:36 | XMS_ITS | Encounter Summary ---
Author Organization [facility] Address [address] [place] [address]. [place], [place] [address] [place] [address] Care Team Providers Care Vegetable Worker Name Role Phone Ashley ZUNIGA MD, [...] on file Legal Sex Female 9:15 PM DESK MAKER Gender Identity Not on file Sexual [...] on filedocumented in this encounter Care Teams Vegetable Worker Relationship Specialty Start Date End Date Hermes Ramirez III, MD [address] [facility] 105 [place] [address] PCP - General FAMILY PRACTICE 06/20/17 documented as of this encounter
--- OUTSIDE RECORDS SUMMARY | 2024-03-20 16:37 | XMS_ITS | Encounter Summary ---
Author Organization [facility] Address [address] [place] [address]. [place], [place] [address] [place] [address] Care Team Providers Care New Home Sales Consultant Name Role Phone Ashley ZUNIGA [...] on file Legal Sex Female 9:15 PM BULB GROWER Gender Identity Not on file Sexual Orientation Not on file COVID-19 Exposure Response Date Recorded In the last month, have you been in contact with someone who was confirmed or suspected to have Coronavirus / COVID-19? No / Unsure 02/14/2020 9:24 PM BULB GROWER documented as of this encounter Plan of Treatment Not on file documented as of this encounter Visit Diagnoses Not on filedocumented in this encounter Care Teams New Home Sales Consultant Relationship Specialty Start Date End Date Hermes Ramirez III, MD [address] [facility] 105 [place] [address] PCP - General FAMILY PRACTICE 06/20/17 documented as of this encounter
--- OUTSIDE RECORDS SUMMARY | 2024-03-20 16:37 | XMS_ITS | Encounter Summary ---
Author Organization [facility] Address [address] [place] [address]. [place] [address] [place] [address] Care Team Providers Care Copy And Print Associate Name Role Phone Ashley ZUNIGA MD, Hermes Perez Primary Care Provid er Reason for Visit * Reason Comments Follow Up Encounter Details Date Type Department Care Team ([facility] st Contact Info) Description 04/15/2020 10:00 AM HEEL SEAT LASTER Office Visit [facility] [address] [place] [address] Belinda Us MD [address] [place] [address] Follow Up Social History Tobacco Use Types Packs/Day Years Used Date Smoking Tobacco: Every Day Cigarettes 0.5 15 Smokeless Tobacco: Never Alcohol Use Standard Drinks/Week Comments No 0 (1 standard drink = 0.6 oz pur e alcohol) Comments No Sex and Gender Information Value Date Recorded Sex Assigned at Not on file Legal Sex Female 9:15 PM HEEL SEAT LASTER Gender Identity Not on file Sexual Orientation Not on file COVID-19 Exposure Response Date Recorded In the last month, have you been in contact with someone who was confirmed or suspected to have Coronavirus / COVID-19? No / Unsure 04/15/2020 9:53 AM HEEL SEAT LASTER documented as of this encounter Last Filed Vital Signs Vital Sign Reading Time Taken Comments Blood Pressure 134/84 04/15/2020 10:25 AM HEEL SEAT LASTER Pulse 74 04/15/2020 10:25 AM HEEL SEAT LASTER Temperature 36.6 ??C (97.8 ??F) 04/15/2020 10:[address] Respiratory Rate - - Oxygen Saturation - - Inhaled Oxygen Concentration - - Weight 91.2 kg (201 lb 1 oz) 04/15/2020 10:25 AM HEEL SEAT LASTER Height 157.5 cm (5' 2 ) 04/15/2020 10:25 AM HEEL SEAT LASTER Body Mass Index 36.77 04/15/2020 10:25 AM HEEL SEAT LASTER documented in this encounter Progress Notes * [...] trended up from November 2019 I called [facility]- was unable to locate her Transplant nurse/coordinator Melba . I left a message to be called back. PLAN I asked to increase lasix to 40-60mg BID for 3 days I have called [place] and will call back to speak to the transplant team. Meanwhile if inadequate diuresis in a couple of days when I follow up , will likely have her admitted to [facility] for CHRISTY , Fluid overload and worsening Liver function Tacrolimus trough level and BMP in 3 days CHRISTINE US MD 04/15/2020 CC: PCP: HERMES RAMIREZ III, MD SEAT LASTER documented in this encounter Plan of Treatment Not on file documented as of this encounter Visit Diagnoses Diagnosis Liver transplanted (CMS/HCC HHS/HCC)- Primary Liver replaced by transplant CHRISTY (acute kidney injury) (CMS/HCC) Acute kidney failure, unspecified Abnormal liver function Unspecified disorder of liver Other hypervolemia documented in this encounter Care Teams Copy And Print Associate Relationship Specialty Start Date End Date Hermes Ramirez III, MD [address] [address] PCP - General FAMILY PRACTICE 06/20/17 documented as of this encounter
--- OUTSIDE RECORDS SUMMARY | 2024-03-20 16:37 | XMS_ITS | Encounter Summary ---
Author Organization [facility] Address [address] [place] [address]. [place], [place] [address] [place] [address] Care Team Providers Care Grain Operator Name Role Phone Ashley ZUNIGA MD, [...] on file Legal Sex Female 9:15 PM FUSING FURNACE LOADER Gender Identity Not on file Sexual Orientation Not on file COVID-19 Exposure Response Date Recorded In the last month, have you been in contact with someone who was confirmed or suspected to have Coronavirus / COVID-19? No / Unsure 02/18/2020 6:58 PM FUSING FURNACE LOADER documented as of this encounter Plan of Treatment Not on file documented as of this encounter Visit Diagnoses Not on filedocumented in this encounter Care Teams Grain Operator Relationship Specialty Start Date End Date Hermes Ramirez III, MD [address] [facility] 105 [place] [address] PCP - General FAMILY PRACTICE 06/20/17 documented as of this encounter
--- OUTSIDE RECORDS SUMMARY | 2024-03-20 16:37 | XMS_ITS | Encounter Summary ---
Author Organization [facility] Address [address] [place] [address]. [place], [place] [address] [place] [address] Care Team Providers Care Butter Wrapper Name Role Phone Ashley ZUNIGA MD, [...] file Legal Sex Female 9:15 PM FOREST FIRE CONTROL OFFICER Gender Identity Not on file Sexual Orientation Not on file COVID-19 Exposure Response Date Recorded In the last month, have you been in contact with someone who was confirmed or suspected to have Coronavirus / COVID-19? No / Unsure 04/15/2020 9:53 AM FOREST FIRE CONTROL OFFICER documented as of this encounter Plan of Treatment Not on file documented as of this encounter Visit Diagnoses Not on filedocumented in this encounter Care Teams Butter Wrapper Relationship Specialty Start Date End Date Hermes Ramirez III, MD [address] [facility] 105 [place] [address] PCP - General FAMILY PRACTICE 06/20/17 documented as of this encounter
--- OUTSIDE RECORDS SUMMARY | 2024-03-20 16:37 | XMS_ITS | Encounter Summary ---
Author Organization [facility] Address [address] [place] [address]. [place], [place] [address] [place] [address] Care Team Providers Care Typo Machine Operator Name Role Phone Ashley ZUNIGA [...] file Legal Sex Female 9:15 PM RISK AND INSURANCE CONSULTANT Gender Identity Not on file Sexual Orientation Not on file COVID-19 Exposure Response Date Recorded In the last month, have you been in contact with someone who was confirmed or suspected to have Coronavirus / COVID-19? No / Unsure 02/26/2020 6:35 PM RISK AND INSURANCE CONSULTANT documented as of this encounter Plan of Treatment Not on file documented as of this encounter Visit Diagnoses Not on filedocumented in this encounter Care Teams Typo Machine Operator Relationship Specialty Start Date End Date Hermes Ramirez III, MD [address] [facility] 105 [place] [address] PCP - General FAMILY PRACTICE 06/20/17 documented as of this encounter
--- OUTSIDE RECORDS SUMMARY | 2024-03-20 16:37 | XMS_ITS | Encounter Summary ---
Author Organization [facility] Address [address] [place] [address]. [place], [place] [address] [place] [address] Care Team Providers Care Implementation Analyst Name Role Phone Ashley ZUNIGA MD, Hermes Perez Primary Care Provid er Encounter Details Date Type Department Care Team (Late st Contact Info) Description 04/14/2020 Scan [facility] [address] [place] [address] Scanned, Documents Social History Tobacco Use Types Packs/Day Years Used Date Smoking Tobacco: Every Day Cigarettes 0.5 15 Smokeless Tobacco: Never Alcohol Use Standard Drinks/Week Comments No 0 (1 standard drink = 0.6 oz pur e alcohol) Comments No Sex and Gender Information Value Date Recorded Sex Assigned at Not on file Legal Sex Female 9:15 PM LIME BURNER Gender Identity Not on file Sexual Orientation Not on file COVID-19 Exposure Response Date Recorded In the last month, have you been in contact with someone who was confirmed or suspected to have Coronavirus / COVID-19? No / Unsure 04/15/2020 9:53 AM LIME BURNER documented as of this encounter Plan of Treatment Not on file documented as of this encounter Visit Diagnoses Not on filedocumented in this encounter Care Teams Implementation Analyst Relationship Specialty Start Date End Date Hermes Ramirez III, MD [address] [facility] 105 [place] [address] PCP - General FAMILY PRACTICE 06/20/17 documented as of this encounter
--- OUTSIDE RECORDS SUMMARY | 2024-03-20 16:37 | XMS_ITS | Encounter Summary ---
Author Organization [facility] Address [address] [place] [address]. [place], [place] [address] [place] [address] Care Team Providers Care Collaborative Physician Name Role Phone Ashley ZUNIGA MD, Hermes Perez Primary Care Provid er Reason for Visit * Reason Comments Follow Up Encounter Details Date Type Department Care Team (Late st Contact Info) Description 11/26/2019 8:45 AM CDT Office Visit [facility] [place] [address] Geovanni Leon MD [address] [place] [address] Follow Up Social History Tobacco Use Types Packs/Day Years Used Date Smoking Tobacco: Every Day Cigarettes 0.5 15 Smokeless Tobacco: Never Alcohol Use Standard Drinks/Week Comments No 0 (1 standard drink = 0.6 oz pur e alcohol) Comments No Sex and Gender Information Value Date Recorded Sex Assigned at Not on file Legal Sex Female 9:15 PM SENIOR ELECTRICAL ESTIMATOR Gender Identity Not on file Sexual Orientation [...] transplant documented in this encounter Care Teams Collaborative Physician Relationship Specialty Start Date End Date Hermes Ramirez III, MD [address] [facility] 105 [place] [address] PCP - General FAMILY PRACTICE 06/20/17 documented as of this encounter
--- OUTSIDE RECORDS SUMMARY | 2024-03-20 16:37 | XMS_ITS | Encounter Summary ---
Author Organization [facility] Address [address] [place] [address]. [place], [place] [address] [place] [address] Care Team Providers Care Glass Engraver Name Role Phone Ashley ZUNIGA MD, Hermes Perez Primary Care Provid er Encounter Details Date Type Department Care Team (Late st Contact Info) Description 04/09/2020 Scan [facility] [address] [place] [address] Scanned, Documents Social History Tobacco Use Types Packs/Day Years Used Date Smoking Tobacco: Every Day Cigarettes 0.5 15 Smokeless Tobacco: Never Alcohol Use Standard Drinks/Week Comments No 0 (1 standard drink = 0.6 oz pur e alcohol) Comments No Sex and Gender Information Value Date Recorded Sex Assigned at Not on file Legal Sex Female 9:15 PM FIELD MARKETER Gender Identity Not on file Sexual Orientation Not on file COVID-19 Exposure Response Date Recorded In the last month, have you been in contact with someone who was confirmed or suspected to have Coronavirus / COVID-19? No / Unsure 04/15/2020 9:53 AM FIELD MARKETER documented as of this encounter Plan of Treatment Not on file documented as of this encounter Visit Diagnoses Not on filedocumented in this encounter Care Teams Glass Engraver Relationship Specialty Start Date End Date Hermes Ramirez III, MD [address] [facility] 105 [place] [address] PCP - General FAMILY PRACTICE 06/20/17 documented as of this encounter
--- OUTSIDE RECORDS SUMMARY | 2024-03-20 16:37 | XMS_ITS | Encounter Summary ---
Author Organization [facility] Address [address] [place] [address]. [place], [place] [address] [place] [address] Care Team Providers Care College Sports Assistant Name Role Phone Ashley ZUNIGA MD, [...] on file Legal Sex Female 9:15 PM TEST CARRIER Gender Identity Not on file Sexual Orientation [...] on filedocumented in this encounter Care Teams College Sports Assistant Relationship Specialty Start Date End Date Hermes Ramirez III, MD [address] [facility] 105 [place] [address] PCP - General FAMILY PRACTICE 06/20/17 documented as of this encounter
--- OUTSIDE RECORDS SUMMARY | 2024-03-20 16:37 | XMS_ITS | Encounter Summary ---
Author Organization [facility] Address [address] [place] [address]. [place], [place] [address] [place] [address] Care Team Providers Care Heat Pump Installer Name Role Phone Ashley ZUNIGA MD, [...] file Legal Sex Female 9:15 PM ASSISTANT PASSENGER LOCOMOTIVE ENGINEER Gender Identity Not on file Sexual Orientation Not on file COVID-19 Exposure Response Date Recorded In the last month, have you been in contact with someone who was confirmed or suspected to have Coronavirus / COVID-19? No / Unsure 02/19/2020 2:58 PM ASSISTANT PASSENGER LOCOMOTIVE ENGINEER documented as of this encounter Plan of Treatment Not on file documented as of this encounter Visit Diagnoses Not on filedocumented in this encounter Care Teams Heat Pump Installer Relationship Specialty Start Date End Date Hermes Ramirez III, MD [address] [facility] 105 [place] [address] PCP - General FAMILY PRACTICE 06/20/17 documented as of this encounter
--- OUTSIDE RECORDS SUMMARY | 2024-03-20 16:37 | XMS_ITS | Encounter Summary ---
Author Organization [facility] Address [address] [place] [address]. [place], [place] [id number] [place] [address] Care Team Providers Care Promotions Director Name Role Phone Ashley ZUNIGA MD, Hermes Perez Primary Care Provid er Reason for Visit * Reason Comments Headache Encounter Details Date Type Department Care Team (Late st Contact Info) Description 03/30/2020 8:03 PM TOP AND SEAT COVER FITTER - 03/30/2020 10:39 PM TOP AND SEAT COVER FITTER Emergency [facility] [address] [place] [address] Jamison Weems, [place] [address] [place] [address] Headache Discharge Disposition: Home or Self Care [...] file Legal Sex Female 9:15 PM TOP AND SEAT COVER FITTER Gender Identity Not on file Sexual Orientation Not on file COVID-19 Exposure Response Date Recorded In the last month, have you been in contact with someone who was confirmed or suspected to have Coronavirus / COVID-19? Yes 03/30/2020 3:08 PM TOP AND SEAT COVER FITTER documented as of this encounter Last Filed Vital Signs Vital Sign Reading Time Taken Comments Blood Pressure 121/70 03/30/2020 8:27 PM TOP AND SEAT COVER FITTER Pulse 82 03/30/2020 8:27 PM TOP AND SEAT COVER FITTER Temperature 36.7 ??C (98 ??F) 03/30/2020 8:27 PM TOP AND SEAT COVER FITTER Respiratory Rate 16 03/30/2020 8:27 PM TOP AND SEAT COVER FITTER Oxygen Saturation 100% 03/30/2020 8:27 PM TOP AND SEAT COVER FITTER Inhaled Oxygen Concentration - - Weight 72.6 kg (160 lb) 03/30/2020 3:09 PM TOP AND SEAT COVER FITTER Height 157.5 cm (5' 2 ) 03/30/2020 3:09 PM TOP AND SEAT COVER FITTER Body Mass Index 29.26 03/30/2020 3:09 PM TOP AND SEAT COVER FITTER documented in this encounter Discharge Instructions * Discharge Instructions* MAYITO Levine - 03/30/2020 9:46 PM TOP AND SEAT COVER FITTER Plenty of fluids. You must quarantine at [...] return if symptoms worsen, or other concerns. AND SEAT COVER FITTER documented in this encounter Medications at Time [...] of this encounter ED Notes * MAYITO Levine - 03/30/2020 8:24 PM CST Chief Complaint Chief Complaint Patient presents with ??? Headache History of Present Illness 39-year-old female here for evaluation of chills, headache, cough, nasal drainage. Symptoms started2 days ago. The patient has not checked her temperature at home. She denies chest pain or shortnessof breath. She denies vomiting, diarrhea, dysuria. 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 Patient sts possible exposure to covid. Patient hx of migraines. Patient denies other sxs. No acute distress. AND SEAT COVER FITTER documented in this encounter Plan of Treatment Not on file documented as of this encounter Procedures Procedure Name Priority Date/Time Associated Diagnosis Comments CORONAVIRUS (COVID 19) PCR Routine 03/30/2020 9:36 PM TOP AND SEAT COVER FITTER CORONAVIRUS (COVID-19) ANTIGEN STAT 03/30/2020 8:50 PM TOP AND SEAT COVER FITTER XR CHEST PORTABLE STAT 03/30/2020 8:3 6 PM TOP AND SEAT COVER FITTER URINALYSIS WI REFLEX TO CULTURE STAT 03/30/2020 8:28 PM TOP AND SEAT COVER FITTER documented in this encounter Results * CORONAVIRUS (COVID 19) PCR (03/30/2020 9:36 PM TOP AND SEAT COVER FITTER) CORONAVIRUS SARS COV 2 PCR (RESP) NEGATIVE NEGATIVE 03/31/2020 12:28 PM TOP AND SEAT COVER FITTER [facility] Comment: NEGATIVE RESULTS DO NOT PRECLUDE SARS-CoV-2 INFECTION AND SHOULD NOT BE USED THE SOLE BASIS FOR PATIENT MANAGEMENT DECISIONS. NEGATIVE RESULTS MUST BE COMBINED WITH CLINICAL OBSERVATIONS, PATIENT HISTORY, AND EPIDEMIOLOGICAL INFORMATION. THE SARS-CoV-2 TEST HAS BEEN AUTHORIZED BY THE FDA UNDER AN EUA FOR USE BY AUTHORIZED LABORATORIES. FIRST TEST UNKNOWN 03/31/2020 8:22 AM TOP AND SEAT COVER FITTER [facility] EMPLOYED IN HEALTHCARE UNKNOWN 03/31/2020 8:22 AM TOP AND SEAT COVER FITTER [facility] SYMPTOMATIC DEFINED BY CDC UNKNOWN 03/31/2020 8:22 AM TOP AND SEAT COVER FITTER [facility] HOSPITALIZATION STATUS UNKNOWN 03/31/2020 8:22 AM TOP AND SEAT COVER FITTER [facility] PATIENT IN ICU UNKNOWN 03/31/2020 8:22 AM TOP AND SEAT COVER FITTER [facility] RESIDENT OF [facility] UNKNOWN 03/31/2020 8:22 AM TOP AND SEAT COVER FITTER [facility] 03/30/2020 9:36 PM TOP AND SEAT COVER FITTER us Jamison EDMOND MICROBIOLOGY - GENERAL ORDERABL ES Final Result [facility] [address] [facility] [facility] [facility] [address], [place] [phone] [facility] [address] [place] [address], [place] [phone] [id number] * CORONAVIRUS (COVID-19) ANTIGEN (03/30/2020 8:50 PM TOP AND SEAT COVER FITTER) CORONAVIRUS ANTIGEN IA NEGATIVE NEGATIVE 03/30/2020 9:29 PM TOP AND SEAT COVER FITTER [facility] Comment: NEGATIVE RESULTS SHOULD BE TREATED [...] LABORATORIES. SPECIMEN TYPE NASAL 03/30/2020 8:58 PM TOP AND SEAT COVER FITTER [facility] FIRST TEST YES 03/30/2020 8:58 PM TOP AND SEAT COVER FITTER [facility] EMPLOYED IN HEALTHCARE YES 03/30/2020 8:58 PM TOP AND SEAT COVER FITTER [facility] SYMPTOMATIC DEFINED BY CDC YES 03/30/2020 8:58 PM TOP AND SEAT COVER FITTER [facility] DATE OF SYMPTOM ONSET 2020032803/30/2020 8:58 PM TOP AND SEAT COVER FITTER [facility] HOSPITALIZATION STATUS NO 03/30/2020 8:58 PM TOP AND SEAT COVER FITTER [facility] PATIENT IN ICU NO 03/30/2020 9:05 PM TOP AND SEAT COVER FITTER [facility] RESIDENT [facility] NO 03/30/2020 8:58 PM TOP AND SEAT COVER FITTER [facility] NOT 03/30/2020 8:58 PM TOP AND SEAT COVER FITTER [facility] Specimen from nose (specimen) NASAL STRUCTURE / Unknown 03/30/2020 8:50 PM TOP AND SEAT COVER FITTER us Jamison EDMON[facility] MICROBIOLOGY - GENERAL ORDERABL ES Final Result [facility] [address] [place] [id number], [place] [phone] * XR CHEST PORTABLE (03/30/2020 8:36 PM TOP AND SEAT COVER FITTER) Anatomical Region Laterality Modality Chest Radiographic Katy ging 03/30/2020 8:38 PM TOP AND SEAT COVER FITTER Impressions 03/30/2020 8:39 PM TOP AND SEAT COVER FITTER IMPRESSION: No radiographic evidence of active chest disease. Interpreted By: Tor Garza MD, 03/30/2020 8:38 PM Narrative 03/30/2020 8:39 PM TOP AND SEAT COVER FITTER Examination: XR CHEST PORTABLE Exam time: 03/30/2020 [...] WI REFLEX TO CULTURE (03/30/2020 8:28 PM TOP AND SEAT COVER FITTER) SPECIMEN TYPE VOIDED URINE 8:53 PM [facility] COLOR (U) YELLOW 03/30/2020 9:09 PM [facility] TRANSPARENCY CLEAR 03/30/2020 9:09 PM [facility] SPECIFIC GRAVITY (U) 1.012 1.002 - 1.035 03/30/2020 9:09 PM [facility] U PH 5.5 5.0 - 9.0 03/30/2020 9:09 PM [facility] LEUKOCYTES (U) NEGATIVE NEGATIVE 03/30/2020 9:09 PM [facility] NITRITES NEGATIVE NEGATIVE 03/30/2020 9:09 PM [facility] PROTEIN (U) NEGATIVE NEGATIVE 03/30/2020 9:09 PM [facility] URINE GLUCOSE NORMAL NORMAL 03/30/2020 9:09 PM [facility] KETONES MG/DL (U) NEGATIVE NEGATIVE 03/30/2020 9:09 PM [facility] UROBILINOGEN NORMAL 0 - 1 EU/DL 03/30/2020 9:09 PM TOP AND SEAT COVER FITTER [facility] BILIRUBIN (U) NEGATIVE NEGATIVE 03/30/2020 9:09 PM [facility] BLOOD (U) 1+(A) NEGATIVE 03/30/2020 9:09 PM [facility] CULTURE & SENSITIVITY INDICATED? CULTURE IS NOT INDICATED 03/30/2020 9:09 PM [facility] WBC/HPF 0-5 /HPF 03/30/2020 9:09 PM [facility] RBC/HPF 0-5 /HPF 03/30/2020 9:09 PM [facility] SQUAMOUS EPITHELIALS RARE 03/30/2020 9:09 PM [facility] URINE SPECIMEN OBTAINED BY CLEAN CATCH PROCEDURE / Unknown 03/30/2020 8:28 PM TOP AND SEAT COVER FITTER Jamison EDMOND URINE ORDERABLES Final Result [facility] [address] [place] [address], documented in this encounter Visit Diagnoses Diagnosis [...] than 25 mg/min. Given 03/30/2020 9:12 PM TOP AND SEAT COVER FITTER 25 mg diphenhydrAMINE (BENADRYL) injection 25 mg 25 mg, Intravenous, Once, 1 dose, On Mon03/30/20 at 2230, For IV administration, give no faster than 25 mg/min. Given 03/30/2020 10:29 PM TOP AND SEAT COVER FITTER 25 mg HYDROmorphone (DILAUDID) injection 0.5 mg 0.5 mg, Intravenous, Once, 1 dose, On Mon03/30/20 at 2030, Administer slowly over at least 2-3 minutes. Given 03/30/2020 9:12 PM TOP AND SEAT COVER FITTER 0.5 mg HYDROmorphone (DILAUDID) injection 0.5 mg 0.5 mg, Intravenous, Once, 1 dose, On Mon03/30/20 at 2230, Administer slowly over at least 2-3 minutes. Given 03/30/2020 10:30 PM TOP AND SEAT COVER FITTER 0.5 mg sodium chloride 0.9% bolus infusion SOLN 1,000 mL 1,000 mL, Intravenous, Administer over 15 Minutes, Once, 1 dose, On Mon03/30/20 at 2030 New Bag 03/30/2020 9:11 PM TOP AND SEAT COVER FITTER 1,000 mLs documented in this encounter Active and Recently Administered Medications Times are shown in TOP AND SEAT COVER FITTER. Scheduled Medication Order 03/28/2020 03/29/2020 03/30/2020 diphenhydrAMINE [...] (New Bag - Prov ider: Chela Ghosh RN)3 (Infusion Stop Time - Provider: Chela Ghosh RN) documented in this encounter Additional Health Concerns Infection Onset Date Last Indicated Resolved Time COVID-19 Rule Out 03/30/2020 03/30/2020 03/30/2020 9:29 PM TOP AND SEAT COVER FITTER documented as of this encounter Care Teams Promotions Director Relationship Specialty Start Date End Date Hermes Ramirez III, MD [address] [place] [id number] PCP - General FAMILY PRACTICE 06/20/17 documented as of this encounter
--- OUTSIDE RECORDS SUMMARY | 2024-03-20 16:37 | XMS_ITS | Encounter Summary ---
Author Organization [facility] Address [address] [place] [address]. [place], [place] [address] [place] [address] Care Team Providers Care Adjudication Specialist Name Role Phone Ashley ZUNIGA MD, Hermes Perez Primary Care Provid er Reason for Visit * Reason Comments Headache Encounter Details Date Type Department Care Team (Late st Contact Info) Description 02/14/2020 9:36 PM WHITE LEAD FILTERER - 02/14/2020 10:23 PM WHITE LEAD FILTERER Emergency [facility] [address] [place] [address] Merary Harris PA [address] [place] [address] Headache Discharge Disposition: Home or Self Care [...] on file Legal Sex Female 9:15 PM WHITE LEAD FILTERER Gender Identity Not on file Sexual Orientation Not on file COVID-19 Exposure Response Date Recorded In the last month, have you been in contact with someone who was confirmed or suspected to have Coronavirus / COVID-19? No / Unsure 02/14/2020 9:24 PM WHITE LEAD FILTERER documented as of this encounter Last Filed Vital Signs Vital Sign Reading Time Taken Comments Blood Pressure 168/97 02/14/2020 9:25 PM WHITE LEAD FILTERER Pulse 83 02/14/2020 9:25 PM WHITE LEAD FILTERER Temperature 37.2 ??C (99 ??F) 02/14/2020 9:25 PM WHITE LEAD FILTERER Respiratory Rate 18 02/14/2020 9:25 PM WHITE LEAD FILTERER Oxygen Saturation 98% 02/14/2020 9:25 PM WHITE LEAD FILTERER Inhaled Oxygen Concentration - - Weight 74.8 kg (165 lb) 02/14/2020 9:25 PM WHITE LEAD FILTERER Height 157.5 cm (5' 2 ) 02/14/2020 9:25 PM WHITE LEAD FILTERER Body Mass Index 30.18 02/14/2020 9:25 PM WHITE LEAD FILTERER documented in this encounter Discharge Instructions * Discharge Instructions* MAYITO Cabrales - 02/14/2020 9:58 PM WHITE LEAD FILTERER Go home, rest and hydrate with plenty of water. Follow-up with your primary care physician for further migraine management and control. Return if symptoms worsen or persist. E LEAD FILTERER E LEAD FILTERER * Attachments The following attachments cannot be sent through Care Everywhere. * How to Keep Track of Your Headaches (Romanian) documented in this encounter Medications at Time [...] Medication List Follow-up: Hermes Ramirez III, MD [facility] [address] [address] Call in 2 days For re-evaluation MAYITO CABRALES 02/14/2020 Referring Provider: No ref. provider found PCP: MD Merary RAMIREZ III, PA 02/14/20 [id number] Cosigned by Abdelrahman Renner MD at 02/16/2020 8:22 PM WHITE LEAD FILTERER E LEAD FILTERER E LEAD FILTERER * Daron Millard RN - 02/14/2020 9:38 PM CST PATIENT PRESENTS TO ER WITH COMPLAINT OF MIGRAINE. STS SHE HAS A HX OF SIMILAR PAIN AND HAS BEEN ATTEMPTING TO CONTROL IT AT HOME WITH OTC MEDS. E LEAD FILTERER * Rachael Velázquez RN - 02/14/2020 9:27 PM CST Pt c/o headache that started last noc. C/o nausea but no vomiting. Stated she have migraines E LEAD FILTERER documented in this encounter Plan of Treatment [...] Mon02/14/20 at 2200 Given 02/14/2020 10:00 PM WHITE LEAD FILTERER 50 mg HYDROmorphone (DILAUDID) injection 0.5 mg 0.5 mg, Intramuscular, Once, 1 dose, On Mon02/14/20 at 2200, Administer slowly over at least 2-3 minutes. Given 02/14/2020 10:00 PM WHITE LEAD FILTERER 0.5 mg Right Deltoid ondansetron (ZOFRAN-ODT) disintegrating tablet 4 mg 4 mg, Oral, Once, 1 dose, On Mon02/14/20 at 2200 Given 02/14/2020 10:00 PM WHITE LEAD FILTERER 4 mg documented in this encounter Active and Recently Administered Medications Times are shown in WHITE LEAD FILTERER. Scheduled Medication Order 02/12/2020 02/13/2020 02/14/2020 diphenhydrAMINE [...] RN) documented in this encounter Care Teams Adjudication Specialist Relationship Specialty Start Date End Date Hermes Ramirez III, MD [facility] E [facility] [address] [place] [address] PCP - General FAMILY PRACTICE 06/20/17 documented as of this encounter
--- OUTSIDE RECORDS SUMMARY | 2024-03-20 16:37 | XMS_ITS | Encounter Summary ---
Author Organization [facility] Address [address] [place] [address]. [place], [place] [address] [place] [address] Care Team Providers Care Site Reliability Engineer Name Role Phone Ashley ZUNIGA MD, Hermes Perez Primary Care Provid er Reason for Visit * Reason Comments Lab (SCAN) Encounter Details Date Type Department Care Team (Late st Contact Info) Description 04/13/2020 Scan ON LICENSE OF [facility] [address] [place], [place] [phone] Scanned, Documents Lab (SCAN) Social History Tobacco Use Types Packs/Day Years Used Date Smoking Tobacco: Every Day Cigarettes 0.5 15 Smokeless Tobacco: Never Alcohol Use Standard Drinks/Week Comments No 0 (1 standard drink = 0.6 oz pur e alcohol) Comments No Sex and Gender Information Value Date Recorded Sex Assigned at Not on file Legal Sex Female 9:15 PM CAMPUS SECURITY OFFICER Gender Identity Not on file Sexual Orientation Not on file COVID-19 Exposure Response Date Recorded In the last month, have you been in contact with someone who was confirmed or suspected to have Coronavirus / COVID-19? No / Unsure 04/15/2020 9:53 AM CAMPUS SECURITY OFFICER documented as of this encounter Plan of Treatment Not on file documented as of this encounter Procedures Procedure Name Priority Date/Time Associated Diagnosis Comments OUTSIDE LAB (SCAN ORDER) Routine 04/13/2020 documented in this encounter Results * OUTSIDE LAB (SCAN) (04/13/2020) 04/13/2020 us Documents Scanned SCANNING Final Result Performing Organization Address City/State/[facility] Co de Phone Number HS ONBASE documented in this encounter Visit Diagnoses Not on filedocumented in this encounter Care Teams Site Reliability Engineer Relationship Specialty Start Date End Date Hermes Ramirez III, MD [address] [address] PCP - General FAMILY PRACTICE 06/20/17 documented as of this encounter
--- OUTSIDE RECORDS SUMMARY | 2024-03-20 16:37 | XMS_ITS | Encounter Summary ---
Author Organization [facility] Address [address] [place] [address]. [place], [place] [phone] [place] [address] Care Team Providers Care Briquette Maker Name Role Phone Ashley ZUNIGA MD, [...] on file Legal Sex Female 9:15 PM MACHINE REPAIRER MAINTENANCE Gender Identity Not on file Sexual Orientation Not on file COVID-19 Exposure Response Date Recorded In the last month, have you been in contact with someone who was confirmed or suspected to have Coronavirus / COVID-19? Yes 03/30/2020 3:08 PM MACHINE REPAIRER MAINTENANCE documented as of this encounter Plan of Treatment Not on file documented as of this encounter Visit Diagnoses Not on filedocumented in this encounter Additional Health Concerns Infection Onset Date Last Indicated Resolved Time COVID-19 Rule Out 03/30/2020 03/30/2020 03/30/2020 9:29 PM MACHINE REPAIRER MAINTENANCE documented as of this encounter Care Teams Briquette Maker Relationship Specialty Start Date End Date Hermes Ramirez III, MD [address] [employer] [facility] [address] [place] [address] PCP - General FAMILY PRACTICE 06/20/17 documented as of this encounter
--- OUTSIDE RECORDS SUMMARY | 2024-03-20 16:37 | XMS_ITS | Encounter Summary ---
Author Organization [facility] Address [address] [place] [address]. [place], [place] [address] [place] [address] Care Team Providers Care Property Consultant Name Role Phone Ashley ZUNIGA MD, Hermes Perez Primary Care Provid er Encounter Details Date Type Department Care Team (Late st Contact Info) Description 04/08/2020 Scan [facility] [address] [place] [address] Scanned, Documents Social History Tobacco Use Types Packs/Day Years Used Date Smoking Tobacco: Every Day Cigarettes 0.5 15 Smokeless Tobacco: Never Alcohol Use Standard Drinks/Week Comments No 0 (1 standard drink = 0.6 oz pur e alcohol) Comments No Sex and Gender Information Value Date Recorded Sex Assigned at Not on file Legal Sex Female 9:15 PM POWER LINE LINEMAN Gender Identity Not on file Sexual Orientation Not on file COVID-19 Exposure Response Date Recorded In the last month, have you been in contact with someone who was confirmed or suspected to have Coronavirus / COVID-19? No / Unsure 04/15/2020 9:53 AM POWER LINE LINEMAN documented as of this encounter Plan of Treatment Not on file documented as of this encounter Visit Diagnoses Not on filedocumented in this encounter Care Teams Property Consultant Relationship Specialty Start Date End Date Hermes Ramirez III, MD [address] [facility] [address] [place] [address] PCP - General FAMILY PRACTICE 06/20/17 documented as of this encounter
--- OUTSIDE RECORDS SUMMARY | 2024-03-20 16:37 | XMS_ITS | Encounter Summary ---
Author Organization [facility] Address [address] [place] [address]. [place], [place] [address] [place] [address] Care Team Providers Care Cnc Mechanic Name Role Phone Ashley ZUNIGA MD, Hermes [...] on file Legal Sex Female 9:15 PM CERTIFICATION 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 No / Unsure 03/09/2020 3:44 PM CERTIFICATION TECHNICIAN documented as of this encounter Plan of Treatment Not on file documented as of this encounter Visit Diagnoses Not on filedocumented in this encounter Care Teams Cnc Mechanic Relationship Specialty Start Date End Date Hermes Ramirez III, MD [address] [facility] [address] [place] [address] PCP - General FAMILY PRACTICE 06/20/17 documented as of this encounter
--- OUTSIDE RECORDS SUMMARY | 2024-03-20 16:37 | XMS_ITS | Encounter Summary ---
Author Organization [facility] Address [facility] [facility] [place] [address] [place] [address] Care Team Providers Care Engineering Technician Name Role Phone Ashley ZUNIGA MD, [...] st Contact Info) Description 02/18/2020 7:12 PM OIL RECOVERY UNIT OPERATOR - 02/18/2020 9:05 PM [facility] [address] [place] [address] Keagan Goldstein MD [address] [place], [place] [id number] Headache (Pt arrives to ED with c/o [...] file Legal Sex Female 9:15 PM OIL RECOVERY UNIT OPERATOR Gender Identity Not on file Sexual Orientation Not on file COVID-19 Exposure Response Date Recorded In the last month, have you been in contact with someone who was confirmed or suspected to have Coronavirus / COVID-19? No / Unsure 02/18/2020 6:58 PM OIL RECOVERY UNIT OPERATOR documented as of this encounter Last Filed Vital Signs Vital Sign Reading Time Taken Comments Blood Pressure 163/97 02/18/2020 9:01 PM OIL RECOVERY UNIT OPERATOR Pt has not taken her BP med today Pulse 76 02/18/2020 7:13 PM OIL RECOVERY UNIT OPERATOR Temperature 37.1 ??C (98.7 ??F) 02/18/2020 7 :13 PM OIL RECOVERY UNIT OPERATOR Respiratory Rate 16 02/18/2020 7:13 PM OIL RECOVERY UNIT OPERATOR Oxygen Saturation 100% 02/18/2020 7:1 3 PM OIL RECOVERY UNIT OPERATOR Inhaled Oxygen Concentration - - Weight 72.6 kg (160 lb) 02/18/2020 7:13 PM OIL RECOVERY UNIT OPERATOR Height 157.5 cm (5' 2 ) 02/18/2020 7:13 PM OIL RECOVERY UNIT OPERATOR Body Mass Index 29.26 02/18/2020 7:13 PM OIL RECOVERY UNIT OPERATOR documented in this encounter Discharge Instructions * Attachments The following attachments cannot be sent through Care Everywhere. * Migraines Discharge Instructions (Malagasy) * Viral Pharyngitis (Malagasy) documented in this encounter Medications at Time [...] pharyngitis Disposition: Discharge Keagan Goldstein MD 02/18/202052 RECOVERY UNIT OPERATOR documented in this encounter Plan of [...] than 25 mg/min. Given 02/18/2020 8:15 PM OIL RECOVERY UNIT OPERATOR 25 mg Left Dorsal Gluteal morphine injection 2 mg 2 mg, Intramuscular, Once, 1 dose, On Mon02/18/20 at 1999 Given 02/18/2020 8:14 PM OIL RECOVERY UNIT OPERATOR 2 mg Right Dorsal Gluteal promethazine (PHENERGAN) injection 6.25 mg 6.25 mg, Intramuscular, Once, 1 dose, On Mon02/18/20 at 1999, For IV administration must be used with CAUTION. Dilute dose to 10 ml with NS and inject over 10 minutes through a running IV line. Given 02/18/2020 8:15 PM OIL RECOVERY UNIT OPERATOR 6.25 mg Left Dorsal Gluteal documented in this encounter Active and Recently Administered Medications Times are shown in OIL RECOVERY UNIT OPERATOR. Scheduled Medication Order 02/16/2020 02/17/2020 02/18/2020 diphenhydrAMINE [...] RN) documented in this encounter Care Teams Engineering Technician Relationship Specialty Start Date End Date Hermes Ramirez III, MD [address] [place] [address] PCP - General FAMILY PRACTICE 06/20/17 documented as of this encounter
--- OUTSIDE RECORDS SUMMARY | 2024-03-20 16:37 | XMS_ITS | Encounter Summary ---
Author Organization [facility] Address [address] [place] [address]. [place], [place] [address] [place] [address] Care Team Providers Care Pharmacist Name Role Phone Ashley ZUNIGA MD, Hermes Perez Primary Care Provid er Reason for Visit * Reason Comments Headache Encounter Details Date Type Department Care Team (Late st Contact Info) Description 02/19/2020 3:08 PM EXTRUSION OPERATOR - 02/19/2020 3:46 PM EXTRUSION OPERATOR Emergency [place] [facility] [address] [place] [address] Merary Harris PA [address] [place] [address] Headache Discharge Disposition: Home or Self Care [...] on file Legal Sex Female 9:15 PM EXTRUSION OPERATOR Gender Identity Not on file Sexual Orientation Not on file COVID-19 Exposure Response Date Recorded In the last month, have you been in contact with someone who was confirmed or suspected to have Coronavirus / COVID-19? No / Unsure 02/19/2020 2:58 PM EXTRUSION OPERATOR documented as of this encounter Last Filed Vital Signs Vital Sign Reading Time Taken Comments Blood Pressure 157/97 02/19/2020 2:59 PM EXTRUSION OPERATOR Pulse 71 02/19/2020 2:59 PM EXTRUSION OPERATOR Temperature 35.6 ??C (96.1 ??F) 02/19/2020 2:59 PM CS T Respiratory Rate 20 02/19/2020 2:59 PM EXTRUSION OPERATOR Oxygen Saturation 100% 02/19/2020 2:59 PM EXTRUSION OPERATOR Inhaled Oxygen Concentration - - Weight 72.6 kg (160 lb) 02/19/2020 2:59 PM EXTRUSION OPERATOR Height 157.5 cm (5' 2 ) 02/19/2020 2:59 PM EXTRUSION OPERATOR Body Mass Index 29.26 02/19/2020 2:59 PM EXTRUSION OPERATOR documented in this encounter Discharge Instructions * Discharge Instructions* MAYITO Cabrales - 02/19/2020 3:21 PM EXTRUSION OPERATOR Tylenol or ibuprofen as needed. Hydrate with plenty of fluids. Follow-up with your primary care physician and neurologist as scheduled. Return if symptoms worsen or persist. USION OPERATOR * Attachments The following attachments cannot be sent through Care Everywhere. * Home Headache Remedies (Burkinan) * Migraines Discharge Instructions (Burkinan) documented in this encounter Medications at Time [...] [address] [facility] [address] Call in 2 days For re-evaluation ZIYAD AYON MD 02/19/2020 Referring Provider: No ref. provider found PCP: MD Merary RAMIREZ III, PA 02/19/20 1521 I am signing this chart for administrative reasons. I did not directly see this patient nor was I involved in the patient's care. Ziyad Ayon MD 02/19/20 1553 USION OPERATOR USION OPERATOR USION OPERATOR * Shea Park RN - 02/19/2020 3:01 PM CST PRESENTS WITH C/O MIGRAINE. PT SEEN YESTERDAY FOR SAME. PT WAS SEEN AT ENT TODAY AND STATES HAD TEST FOR DIZZINESS AND MADE HER HAVE ANOTHER MIGRAINE. USION OPERATOR documented in this encounter Plan of [...] Mon02/19/20 at 1530 Given 02/19/2020 3:24 PM EXTRUSION OPERATOR 25 mg HYDROmorphone (DILAUDID) injection 0.5 mg 0.5 mg, Intravenous, Once, 1 dose, On Mon02/19/20 at 1530, Administer slowly over at least 2-3 minutes. Given 02/19/2020 3:24 PM EXTRUSION OPERATOR 0.5 mg Left Arm promethazine (PHENERGAN) tablet 25 mg 25 mg, Oral, Once, 1 dose, On Mon02/19/20 at 1530 Given 02/19/2020 3:24 PM EXTRUSION OPERATOR 25 mg documented in this encounter Active and Recently Administered Medications Times are shown in EXTRUSION OPERATOR. Scheduled Medication Order 02/17/2020 02/18/2020 02/19/2020 diphenhydrAMINE [...] LPN) documented in this encounter Care Teams Pharmacist Relationship Specialty Start Date End Date Hermes Ramirez III, MD [address] [place] [address] PCP - General FAMILY PRACTICE 06/20/17 documented as of this encounter
--- OUTSIDE RECORDS SUMMARY | 2024-03-20 16:37 | XMS_ITS | Encounter Summary ---
Author Organization [facility] Address [address] [place] [address]. [place], [place] [address] [place] [address] Care Team Providers Care Front Maker Name Role Phone Ashley ZUNIGA MD, Hermes Perez Primary Care Provid er Reason for Visit * Reason Onset Date Comments Question 04/08/2020 Encounter Details Date Type Department Care Team (Late st Contact Info) Description 04/08/2020 Telephone [facility] [address] [place] [address] [place] [address] [place] [address] Question Social History Tobacco Use Types Packs/Day Years Used Date Smoking Tobacco: Every Day Cigarettes 0.5 15 Smokeless Tobacco: Never Alcohol Use Standard Drinks/Week Comments No 0 (1 standard drink = 0.6 oz pur e alcohol) Comments No Sex and Gender Information Value Date Recorded Sex Assigned at Not on file Legal Sex Female 9:15 PM WARE SERVER Gender Identity Not on file Sexual Orientation Not on file COVID-19 Exposure Response Date Recorded In the last month, have you been in contact with someone who was confirmed or suspected to have Coronavirus / COVID-19? Yes 03/30/2020 3:08 PM WARE SERVER documented as of this encounter Progress Notes * Leonila Marquez LPN - 04/08/2020 8:17 AM CST Patient calls stating that she had a headache last week and went to the Er in [place]. She states that she was given one [...] she NSH her last appointment in clinic. SERVER documented in this encounter Plan of Treatment Not on file documented as of this encounter Visit Diagnoses Not on filedocumented in this encounter Care Teams Front Maker Relationship Specialty Start Date End Date Hermes Ramirez III, MD [address] [address] PCP - General FAMILY PRACTICE 06/20/17 documented as of this encounter
--- OUTSIDE RECORDS SUMMARY | 2024-03-20 16:37 | XMS_ITS | Encounter Summary ---
Author Organization [facility] Address [address] [place] [address]. [place], [place] [address] [place] [address] Care Team Providers Care Medieval English Literature Professor Name Role Phone Ashley ZUNIGA MD, Hermes Perez Primary Care Provid er Reason for Visit * Reason Comments Headache POSSIBLE UTI Encounter Details Date Type Department Care Team (Late st Contact Info) Description 02/26/2020 7:15 PM AMMONIA OPERATOR - 02/26/2020 10:44 PM AMMONIA OPERATOR Emergency [place] [facility] [address] [facility] [place] [address] Abdelrahman Renner MD [address] [place] [address] Headache (POSSIBLE UTI) Discharge Disposition: Home or [...] on file Legal Sex Female 9:15 PM AMMONIA OPERATOR Gender Identity Not on file Sexual Orientation Not on file COVID-19 Exposure Response Date Recorded In the last month, have you been in contact with someone who was confirmed or suspected to have Coronavirus / COVID-19? No / Unsure 02/26/2020 6:35 PM AMMONIA OPERATOR documented as of this encounter Last Filed Vital Signs Vital Sign Reading Time Taken Comments Blood Pressure 137/88 02/26/2020 10:43 PM AMMONIA OPERATOR Pulse 78 02/26/2020 10:43 PM AMMONIA OPERATOR Temperature 36.9 ??C (98.4 ??F) 02/26/2020 10:[address] Respiratory Rate 16 02/26/2020 10:43 PM AMMONIA OPERATOR Oxygen Saturation 100% 02/26/2020 10:43 PM AMMONIA OPERATOR Inhaled Oxygen Concentration - - Weight 72.6 kg (160 lb) 02/26/2020 6:36 PM AMMONIA OPERATOR Height 157.5 cm (5' 2 ) 02/26/2020 6:36 PM AMMONIA OPERATOR Body Mass Index 29.26 02/26/2020 6:36 PM AMMONIA OPERATOR documented in this encounter Discharge Instructions * Discharge Instructions* Abdelrahman Renner MD - 02/26/2020 10:31 PM AMMONIA OPERATOR CALL YOUR DOCTOR AND SCHEDULE A FOLLOW UP APPOINTMENT. RETURN TO THE EMERGENCY DEPARTMENT WITH ANY NEW OR WORSENING SYMPTOMS. NIA OPERATOR * Attachments The following attachments cannot be sent through Care Everywhere. * Urinary Tract Infection Discharge Instructions, Adult (Burundian) documented in this encounter Medications at Time [...] Nausea., Starting Mon02/26/2020, Print Class: Print Pharmacy: [facility]/pharmacy #[id number] - [address] (Ph #: [phone]) sulfamethoxazole-trimethoprim (BACTRIM DS) 800-160 MG tablet Take 0.5 tablets by mouth 2 (two) times daily for 7 days., Starting Mon02/26/2020, Until Mon03/04/2020, Print Class: Print Pharmacy: [facility]/pharmacy #[id number] (Ph #: [phone]) Follow Up Information Hermes Ramirez III, MD [address] [facility] [address] [place] [address] Schedule an appointment as soon as possible for a visit Call in the morning SCRIBE ATTESTATION I Ganesh Rbuin am personally taking down the notes in [...] 7:30 PM Abdelrahman Renner MD 03/23/20 0447 NIA OPERATOR * Gabriel Otero RN - 02/26/2020 7:27 [...] IS NOT GETTING ALL HER URINE OUT. NIA OPERATOR * Shea Park RN - 02/26/2020 6:38 PM CST PRESENTS WITH C/O MIGRAINE, ONSET THIS AM. C/O POSSIBLE UTI, SX ONSET 2 DAYS. SEEN HERE 02/18 FOR HEADACHE ALSO NIA OPERATOR documented in this encounter Plan of Treatment Not on file documented as of this encounter Procedures Procedure Name Priority Date/Time Associated Diagnosis Comments BASIC METABOLIC PANEL STAT 02/26/2020 8:16 PM AMMONIA OPERATOR HEPATIC FUNCTION PANEL STAT 02/26/2020 8:16 PM AMMONIA OPERATOR CBC W/DIFF AUTOMATED STAT 02/26/2020 8:16 PM AMMONIA OPERATOR MAGNESIUM STAT 02/26/2020 8:16 PM AMMONIA OPERATOR URINALYSIS WI REFLEX TO CULTURE STAT 02/26/2020 6:40 PM AMMONIA OPERATOR TEST URINE STAT 02/26/2020 6:40 PM AMMONIA OPERATOR URINE BACTERIA CULTURE Routine 02/26/2020 6:40 PM AMMONIA OPERATOR documented in this encounter Results * MAGNESIUM (02/26/2020 8:16 PM AMMONIA OPERATOR) MAGNESIUM 1.7 1.6 - 2.6 MG/DL 02/26/2020 8:53 PM AMMONIA OPERATOR [facility] 02/26/2020 8:16 PM AMMONIA OPERATOR Abdelrahman Renner MD LABORATORY Final Result [facility] [address] [facility] [place] [id number], * (ABNORMAL) CBC W/DIFF AUTOMATED (02/26/2020 8:16 PM AMMONIA OPERATOR) WBC 5.8 3.6 - 10.6 x10'3/uL 02/26/2020 9:03 PM [facility] RBC 3.30(L) 3.71 - 5.17 x10'6/uL 02/26/2020 9:03 PM [facility] HGB 11.7(L) 12.0 - 15.0 G/DL 02/26/2020 9:03 PM [facility] HCT 34.4(L) 35.0 - 49.0 % 02/26/2020 9:03 PM [facility] MCV 104.2(H) 81.0 - 99.0 FL 02/26/2020 9:03 PM [facility] MCH 35.5(H) 27.0 - 34.0 PG 02/26/2020 9:03 PM [facility] MCHC 34.0 32.0 - 36.0 G/DL 02/26/2020 9:03 PM [facility] RDW 13.9 11.5 - 14.5 % 02/26/2020 9:03 PM [facility] PLT 45(LL) 150.0 - 450.0 x10'3/uL 02/26/2020 9:03 PM [facility] Comment: CALLED TO AND READ BACK BY NAFISA OTERO [id number] AT 2103 WS MPV 11.2 7.0 - 12.0 FL 02/26/2020 9:03 PM [facility] DIFFERENTIAL TYPE AUTOMATED 02/26/2020 9:03 PM [facility] SEG NEUTROPHILS 68.2 % 0 9:03 PM [facility] LYMPHOCYTES 15.9 % 02/26/2020 9:03 PM [facility] MONOCYTES 8.9 % 02/26/2020 9:03 PM [facility] EOSINOPHILS 6.3 % 02/26/2020 9:03 PM [facility] BASOPHILS 0.2 % 02/26/2020 9:03 PM [facility] IMMATURE GRANS % 0.5 % 02/26/20 20 9:03 PM [facility] NRBC 0.0 % 02/26/2020 9:03 PM [facility] ABS. NEUTROPHILS 3.98 1.7 - 7.0 x10'3/uL 02/26/2020 9:03 PM [facility] ABS. LYMPHOCYTES 0.93 0.90 - 2.90 x10'3/uL 02/26/2020 9:03 PM [facility] ABS. MONOCYTES 0.52 0.30 - 0.90 x10'3/uL 02/26/2020 9:03 PM [facility] ABS. EOSINOPHILS 0.37 0.05 - 0.50 x10'3/uL 02/26/2020 9:03 PM [facility] ABS. BASOPHILS 0.01 0.00 - 0.30 x10'3/uL 02/26/2020 9:03 PM [facility] ABS. IMMATURE GRANULOCYTES 0.03 0.00 - 0.03 x10'3/uL 02/26/2020 9:03 PM [facility] ABS. NUCLEATED RBC'S 0.00 0.00 x10'3/uL 02/26/2020 9:03 PM [facility] 02/26/2020 8:16 PM AMMONIA OPERATOR us Abdelrahman Renner MD LABORATORY Final Result [facility] [address] [place] [address], [place] [phone] * (ABNORMAL) HEPATIC FUNCTION PANEL (02/26/2020 8:16 PM AMMONIA OPERATOR) BILIRUBIN TOTAL S/P/B 2.2(H) 0.2 - 1.0 MG/DL 02/26/2020 8:53 PM [facility] Comment: THIS ASSAY IS NOT RECOMMENDED FOR PATIENTS UNDERGOING TREATMENT WITH ELTROMBOPAG DUE TO THE POTENTIAL FOR FALSELY ELEVATED RESULTS. BILIRUBIN DIRECT S/P/B 1.5(H) 0.0 - 0.2 MG/DL 02/26/2020 8:53 PM [facility] ALKALINE PHOSPHATASE S/P/B 449(H) 37 - 98 U/L 02/26/2020 8:53 PM [facility] AST 70(H) 15 - 37 U/L 02/26/2020 8:53 PM [facility] ALT 57(H) 13 - 56 U/L 02/26/2020 8:53 PM [facility] TOTAL PROTEIN S/P/B 6.0(L) 6.4 - 8.2 G/DL 02/26/2020 8:53 PM [facility] ALBUMIN S/P/B 2.7(L) 3.4 - 5.0 G/DL 02/26/2020 8:53 PM [facility] 02/26/2020 8:16 PM AMMONIA OPERATOR us Abdelrahman Renner MD LABORATORY Final Result [facility] [address] [place] [address], * (ABNORMAL) BASIC METABOLIC PANEL (02/26/2020 8:16 PM AMMONIA OPERATOR) SODIUM S/P/B 144 136 - 145 MMOL/L 02/26/2020 8:53 PM [facility] POTASSIUM S/P/B 4.0 3.6 - 5.0 MMOL/L 02/26/2020 8:53 PM [facility] CHLORIDE S/P/B 112(H) 98 - 107 MMOL/L 02/26/2020 8:53 PM [facility] CO2 28.3 21.0 - 32.0 MMOL/L 02/26/2020 8:53 PM [facility] GLUCOSE 86 74 - 106 MG/DL 02/26/2020 8:53 PM [facility] BUN 25(H) 7 - 18 MG/DL 02/26/2020 8:53 PM [facility] CREATININE S/P/B 2.61(H) 0.55 - 1.02 MG/DL 02/26/2020 8:53 PM [facility] CALCIUM S/P/B 8.5 8.5 - 10.1 MG/DL 02/26/2020 8:53 PM [facility] ANION GAP 3.7(L) 5 - 15 MMOL/L 02/26/2020 8:53 PM [facility] OSMOLALITY (CALC) 302 MOSM/KG 020 8:53 PM [facility] EGFR NON-AFR. AMER. 23(L) >90 ML/MIN/1. 73 M2 02/26/2020 8:53 PM [facility] EGFR AFR. AMER. 26(L) >90 ML/MIN/1. 73 M2 02/26/2020 8:53 PM [facility] GFR NOTES GFR REFERENCE S: 02/26/2020 8:53 PM [facility] Comment: THE ESTIMATED GFR IS [...] FAILURE: <15 ml/min/1.73 m2 02/26/2020 8:16 PM AMMONIA OPERATOR Abdelrahman Renner MD LABORATORY Final Result [facility] [place] [address], * (ABNORMAL) CULTURE URINE (02/26/2020 6:40 PM AMMONIA OPERATOR) SPEC DESCRIPTION URINE CLEAN CATCH 02/26/2020 8:02 PM AMMONIA OPERATOR [facility] SPECIAL REQUESTS NO SPECIAL REQUEST 02/26/2020 8:02 PM AMMONIA OPERATOR [facility] CULTURE RESULT >25,000 TO 50,000 CFU/mL ESCHERICHIA COLI (A) 02/28/2020 2:58 PM AMMONIA OPERATOR [facility] URINE SPECIMEN OBTAINED BY CLEAN CATCH PROCEDURE / Unknown 02/26/2020 6:40 PM AMMONIA OPERATOR 02/26/2020 8:02 PM AMMONIA OPERATOR Narrative Organism Antibiotic Method Susceptibility Escherichia coli [...] ORDER KAREN Final Result Performing Organization Address [facility]/ZIP Co de Phone Number [facility] [address] [place] [address], [place] [phone] [id number] [facility] [address] [place] [address], [place] [phone] * TEST URINE (02/26/2020 6:40 PM AMMONIA OPERATOR) PREG TEST NEGATIVE NEGATIVE 02/26/2020 8:04 PM [facility] SPECIFIC GRAVITY (U) 1.012 02/26/2020 8:04 PM [facility] URINE SPECIMEN OBTAINED BY CLEAN CATCH PROCEDURE / Unknown 02/26/2020 6:40 PM AMMONIA OPERATOR us Abdelrahman Renner MD URINE ORDERABLES Final Resul t Performing Organization Address [facility]/ZIP Co de Phone Number [facility] [address] [place] [address], [place] [phone] * (ABNORMAL) URINALYSIS WI REFLEX TO CULTURE (02/26/2020 6:40 PM AMMONIA OPERATOR) SPECIMEN TYPE URINE CLEAN CATCH 02/26/2020 7:52 PM [facility] COLOR (U) YELLOW 02/26/2020 8:10 PM [facility] TRANSPARENCY CLEAR 02/26/2020 8:10 PM [facility] SPECIFIC GRAVITY (U) 1.012 1.002 - 1.035 02/26/2020 8:10 PM [facility] U PH 6.5 5.0 - 9.0 02/26/2020 8:10 PM [facility] LEUKOCYTES (U) 500(A) NEGATIVE 02/26/2020 8:10 PM [facility] NITRITES NEGATIVE NEGATIVE 02/26/2020 8:10 PM [facility] PROTEIN (U) TRACE(A) NEGATIVE 02/26/2020 8:10 PM [facility] URINE GLUCOSE NORMAL NORMAL 02/26/2020 8:10 PM [facility] KETONES MG/DL (U) NEGATIVE NEGATIVE 02/26/2020 8:10 PM [facility] UROBILINOGEN 2.0(H) 0 - 1 EU/DL 02/26/2020 8:10 PM [facility] BILIRUBIN (U) NEGATIVE NEGATIVE 02/26/2020 8:10 PM [facility] BLOOD (U) 1+(A) NEGATIVE 02/26/2020 8:10 PM [facility] CULTURE & SENSITIVITY INDICATED? CULTURE IS INDICATED 02/26/2020 8:10 PM [facility] HYALINE CASTS RARE 02/26/2020 8:10 PM [facility] WBC/HPF >50 /HPF 02/26/2020 8:10 PM [facility] RBC/HPF 0-5 /HPF 02/26/2020 8:10 PM [facility] BACTERIA (U) RARE /HPF 02/26/2020 8:10 PM [facility] BUDDING YEAST RARE 02/26/2020 8:10 PM [facility] SQUAMOUS EPITHELIALS RARE 02/26/2020 8:10 PM [facility] URINE SPECIMEN OBTAINED BY CLEAN CATCH PROCEDURE / Unknown 02/26/2020 6:40 PM AMMONIA OPERATOR us Abdelrahman Renner MD URINE ORDERABLES Final Resul t [facility] [place] [address], documented in this encounter Visit Diagnoses Diagnosis [...] at 2115 New Bag 02/26/2020 9:26 PM AMMONIA OPERATOR 1 g 100 mL/hr dexamethasone PF (DECADRON) injection 10 mg 10 mg, Intravenous, Once, 1 dose, On Mon02/26/20 at 2014, Administer slowly over 1-4 minutes. Given 02/26/2020 8:34 PM AMMONIA OPERATOR 10 mg diphenhydrAMINE (BENADRYL) injection 25 mg 25 mg, Intravenous, Once, 1 dose, On Mon02/26/20 at 2014, For IV administration, give no faster than 25 mg/min. Given 02/26/2020 8:34 PM AMMONIA OPERATOR 25 mg HYDROmorphone (DILAUDID) injection 1 mg 1 mg, Intravenous, Once, 1 dose, On Mon02/26/20 at 2014, Administer slowly over at least 2-3 minutes. Given 02/26/2020 8:34 PM AMMONIA OPERATOR 1 mg promethazine (PHENERGAN) injection 25 mg 25 mg, Intramuscular, Once, 1 dose, On Mon02/26/20 at 2014, For IV administration must be used with CAUTION. Dilute dose to 10 ml with NS and inject over 10 minutes through a running IV line. Given 02/26/2020 8:34 PM AMMONIA OPERATOR 25 mg Right Deltoid sodium chloride 0.9% bolus infusion SOLN 1,000 mL 1,000 mL, Intravenous, Administer over 15 Minutes, Bolus (Once), 1 dose, On Mon02/26/20 at 2014 New Bag 02/26/2020 8:34 PM AMMONIA OPERATOR 1,000 mLs documented in this encounter Active and Recently Administered Medications Times are shown in AMMONIA OPERATOR. Scheduled Medication Order 02/24/2020 02/25/2020 02/26/2020 [id number] [...] RN) documented in this encounter Care Teams Medieval English Literature Professor Relationship Specialty Start Date End Date Hermes Ramirez III, MD [address] [facility] [address] [place] [address] PCP - General FAMILY PRACTICE 06/20/17 documented as of this encounter
--- OUTSIDE RECORDS SUMMARY | 2024-03-20 16:37 | XMS_ITS | Encounter Summary ---
Author Organization [facility] Address [address] [place] [address]. [place], [place] [address] [place] [address] Care Team Providers Care Shell Mold Bonding Machine Operator Name Role Phone Ashley ZUNIGA MD, Hermes Perez Primary Care Provid er Encounter Details Date Type Department Care Team (Late st Contact Info) Description 03/30/2020 Scan [facility] [address] [place] [id number] Scanned, Documents Social History Tobacco Use Types Packs/Day Years Used Date Smoking Tobacco: Every Day Cigarettes 0.5 15 Smokeless Tobacco: Never Alcohol Use Standard Drinks/Week Comments No 0 (1 standard drink = 0.6 oz pur e alcohol) Comments No Sex and Gender Information Value Date Recorded Sex Assigned at Not on file Legal Sex Female 9:15 PM CHIEF NURSE ANESTHETIST Gender Identity Not on file Sexual Orientation Not on file COVID-19 Exposure Response Date Recorded In the last month, have you been in contact with someone who was confirmed or suspected to have Coronavirus / COVID-19? No / Unsure 04/15/2020 9:53 AM CHIEF NURSE ANESTHETIST documented as of this encounter Plan of Treatment Not on file documented as of this encounter Visit Diagnoses Not on filedocumented in this encounter Additional Health Concerns Infection Onset Date Last Indicated Resolved Time COVID-19 Rule Out 03/30/2020 03/30/2020 03/30/2020 9:29 PM CHIEF NURSE ANESTHETIST COVID-19 Rule Out 03/30/2020 03/30/2020 03/31/2020 12:28 PM CHIEF NURSE ANESTHETIST documented as of this encounter Care Teams Shell Mold Bonding Machine Operator Relationship Specialty Start Date End Date Hermes Ramirez III, MD [address] [facility] [address] [place] [address] PCP - General FAMILY PRACTICE 06/20/17 documented as of this encounter
--- OUTSIDE RECORDS SUMMARY | 2024-03-20 16:37 | XMS_ITS | Encounter Summary ---
Author Organization [facility] Address [address] [place] [address]. [place], [place] [address] [place] [address] Care Team Providers Care Graphite Mill Operator Name Role Phone Ashley ZUNIGA MD, Hermes Perez Primary Care Provid er Reason for Visit * Reason Comments Headache Recurrent Or Know Dx Migraine Encounter Details Date Type Department Care Team (Late st Contact Info) Description 03/09/2020 4:07 PM CAREERS COUNSELLOR - 03/09/2020 6:22 PM CAREERS COUNSELLOR Emergency [facility] [address] [place] [address] [place] [address] Ziyad Hu MD [address] [place] [address] Headache Recurrent Or Know Dx Migraine Discharge [...] on file Legal Sex Female 9:15 PM CAREERS COUNSELLOR Gender Identity Not on file Sexual Orientation Not on file COVID-19 Exposure Response Date Recorded In the last month, have you been in contact with someone who was confirmed or suspected to have Coronavirus / COVID-19? No / Unsure 03/09/2020 3:44 PM CAREERS COUNSELLOR documented as of this encounter Last Filed Vital Signs Vital Sign Reading Time Taken Comments Blood Pressure 139/93 03/09/2020 6:17 PM CAREERS COUNSELLOR Pulse 72 03/09/2020 6:17 PM CAREERS COUNSELLOR Temperature 37.1 ??C (98.7 ??F) 03/09/2020 3:48 PM CS T Respiratory Rate 18 03/09/2020 6:17 PM CAREERS COUNSELLOR Oxygen Saturation 100% 03/09/2020 6:17 PM CAREERS COUNSELLOR Inhaled Oxygen Concentration - - Weight 72.6 kg (160 lb) 03/09/2020 3:45 PM CAREERS COUNSELLOR Height 157.5 cm (5' 2 ) 03/09/2020 3:45 PM CAREERS COUNSELLOR Body Mass Index 29.26 03/09/2020 3:45 PM CAREERS COUNSELLOR documented in this encounter Discharge Instructions * Attachments The following attachments cannot be sent through Care Everywhere. * Migraines in Adults (Guatemalan) documented in this encounter Medications at Time [...] to start IV. Orders received for IM ERS COUNSELLOR * Shelli Perez RN - 03/09/2020 4:[address] hu aware pt states reglan makes her crawl out of my skin . whatever I had last time worked . ERS COUNSELLOR * Aurelia Vaughan RN - 03/09/2020 3:46 PM CST Pt. came here today for c/o a migraine rating it at an 8 on the pain scale. She states that she wasgoing to see the neurologist about them today but her transporter driver canceled so she had to cancel. ERS COUNSELLOR * Ziyad Hu MD - 03/09/2020 3:16 [...] file Gets together: Not on file Attends zoroastrian service: Not on file Active member of [...] Hermes Ramirez III, MD [address] [facility] 105 [facility] [address] As needed Discharge Medication List as of 03/09/2020 6:18 PM Ziyad Hu MD 03/09/202042 ERS COUNSELLOR documented in this encounter Plan of Treatment [...] than 25 mg/min. Given 03/09/2020 4:40 PM CAREERS COUNSELLOR 25 mg diphenhydrAMINE (BENADRYL) injection 25 mg 25 mg, Intramuscular, Once, 1 dose, On Mon03/09/20 at 1700 Given 03/09/2020 5:22 PM CAREERS COUNSELLOR 25 mg Left Deltoid promethazine (PHENERGAN) injection 25 mg 25 mg, Intramuscular, Once, 1 dose, On Mon03/09/20 at 1700 Given 03/09/2020 5:22 PM CAREERS COUNSELLOR 25 mg Right Deltoid documented in this encounter Active and Recently Administered Medications Times are shown in CAREERS COUNSELLOR. Scheduled Medication Order 03/07/2020 03/08/2020 03/09/2020 diphenhydrAMINE [...] RN) documented in this encounter Care Teams Graphite Mill Operator Relationship Specialty Start Date End Date Hermes Ramirez III, MD [address] [facility] [place] [address] PCP - General FAMILY PRACTICE 06/20/17 documented as of this encounter
--- OUTSIDE RECORDS SUMMARY | 2024-03-20 16:37 | XMS_ITS | Encounter Summary ---
Author Organization [facility] Address [address] [place] [address]. [place], [place] [address] [place] [address] Care Team Providers Care Kid Club Attendant Name Role Phone Ashley ZUNIGA MD, Hermes Perez Primary Care Provid er Reason for Visit * Reason Onset Date Comments Lab Results 04/14/2020 Encounter Details Date Type Department Care Team ([facility] Contact Info) Description 04/14/2020 Telephone [facility] [address] [place] [address] Belinda Us MD [address] [place] [address] Lab Results Social History Tobacco Use Types Packs/Day Years Used Date Smoking Tobacco: Every Day Cigarettes 0.5 15 Smokeless Tobacco: Never Alcohol Use Standard Drinks/Week Comments No 0 (1 standard drink = 0.6 oz pur e alcohol) Comments No Sex and Gender Information Value Date Recorded Sex Assigned at Not on file Legal Sex Female 9:15 PM TRANSFER PROFESSOR Gender Identity Not on file Sexual Orientation Not on file COVID-19 Exposure Response Date Recorded In the last month, have you been in contact with someone who was confirmed or suspected to have Coronavirus / COVID-19? Yes 03/30/2020 3:08 PM TRANSFER PROFESSOR documented as of this encounter Progress Notes [...] pt to GI for an elevated bilirubin. SFER PROFESSOR documented in this encounter Plan of Treatment Not on file documented as of this encounter Visit Diagnoses Not on filedocumented in this encounter Care Teams Kid Club Attendant Relationship Specialty Start Date End Date Hermes Ramirez III, MD [address] [facility] 105 [place] [address] PCP - General FAMILY PRACTICE 06/20/17 documented as of this encounter
--- OUTSIDE RECORDS SUMMARY | 2024-03-20 16:38 | XMS_ITS | Encounter Summary ---
Author Organization [facility] Address [address] [place] [address]. [place], [place] [address] [place] [address] Care Team Providers Care Soil Fertility Extension Specialist Name Role Phone Ashley ZUNIGA MD, Hermes Perez Primary Care Provid er Reason for Visit * Reason Comments Headache Encounter Details Date Type Department Care Team (Late st Contact Info) Description 04/18/2019 10:16 AM COMMANDING OFFICER MOTORIZED SQUAD - 04/18/2019 11:54 AM COMMANDING OFFICER MOTORIZED SQUAD Emergency [place] [facility] [place] [address] Bailee Merchant MD [address] [place] [address] Headache Discharge Disposition: Home or Self Care [...] on file Legal Sex Female 9:15 PM COMMANDING OFFICER MOTORIZED SQUAD Gender Identity Not on file Sexual Orientation Not on file documented as of this encounter Last Filed Vital Signs Vital Sign Reading Time Taken Comments Blood Pressure 165/96 04/18/2019 11:45 AM COMMANDING OFFICER MOTORIZED SQUAD Pulse 79 04/18/2019 11:43 AM COMMANDING OFFICER MOTORIZED SQUAD Temperature 36.4 ??C (97.5 ??F) 04/18/2019 9:56 AM CS T Respiratory Rate 18 04/18/2019 11:43 AM COMMANDING OFFICER MOTORIZED SQUAD Oxygen Saturation 100% 04/18/2019 11:45 AM COMMANDING OFFICER MOTORIZED SQUAD Inhaled Oxygen Concentration - - Weight 72.6 kg (160 lb) 04/18/2019 9:56 AM COMMANDING OFFICER MOTORIZED SQUAD Height 157.5 cm (5' 2 ) 04/18/2019 9:56 AM COMMANDING OFFICER MOTORIZED SQUAD Body Mass Index 29.26 04/18/2019 9:56 AM COMMANDING OFFICER MOTORIZED SQUAD documented in this encounter Discharge Instructions * Discharge Instructions* Bailee Merchant MD - 04/18/2019 11:41 AM COMMANDING OFFICER MOTORIZED SQUAD Migraine Medications given in the ER Continue home medications as previously prescribed Return to ER for worsening pain, vomiting, fever or other concerns. ANDING OFFICER MOTORIZED SQUAD * Attachments The following attachments cannot be sent through Care Everywhere. * Migraine Headache Discharge Instructions (Sao Tomean) documented in this encounter Medications at Time [...] Hermes Ramirez III, MD [address] [facility] 105 [facility] [address] In 1 week ED Course as of [...] Disposition: Discharge Bailee Merchant MD 04/18/19 1147 ANDING OFFICER MOTORIZED SQUAD * Merary Ramirez RN - 04/18/2019 10:05 AM CST PT ARRIVES PER POV FROM HOME WITH C/O MIGRAINE HEADACHE SINCE LAST NIGHT. PT STATES HAS NOT TAKEN ANY OF HER PRN MIGRAINE MEDS TODAY BECAUSE SHE IS HERE WITH HER BROTHER WHO IS HAVING SURGERY. PT ALERT AND ORIENTED. NO DISTRESS NOTED. ANDING OFFICER MOTORIZED SQUAD documented in this encounter Plan of Treatment [...] than 25 mg/min. Given 04/18/2019 11:12 AM COMMANDING OFFICER MOTORIZED SQUAD 25 mg Left Deltoid nalbuphine (NUBAIN) injection 10 mg 10 mg, Intramuscular, Once, 1 dose, On Diana 04/18/19 at 1100 Given 04/18/2019 11:09 AM COMMANDING OFFICER MOTORIZED SQUAD 10 mg Left Upper Outer Quadrant promethazine (PHENERGAN) tablet 25 mg 25 mg, Oral, Once, 1 dose, On Diana 04/18/19 at 1100 Given 04/18/2019 11:09 AM COMMANDING OFFICER MOTORIZED SQUAD 25 mg documented in this encounter Active and Recently Administered Medications Times are shown in COMMANDING OFFICER MOTORIZED SQUAD. Scheduled Medication Order 04/16/2019 04/17/2019 04/18/2019 diphenhydrAMINE [...] RN) documented in this encounter Care Teams Soil Fertility Extension Specialist Relationship Specialty Start Date End Date Hermes Ramirez III, MD [address] [facility] 105 [place] [address] PCP - General FAMILY PRACTICE 06/20/17 documented as of this encounter
--- OUTSIDE RECORDS SUMMARY | 2024-03-20 16:38 | XMS_ITS | Encounter Summary ---
Author Organization [facility] Address [address] [place] [address]. [place], [place] [address] [place] [address] Care Team Providers Care Regional Director Of Admissions Name Role Phone Ashley ZUNIGA MD, Hermes Perez Primary Care Provid er Reason for Visit * Reason Comments Lab (SCAN) Encounter Details Date Type Department Care Team (Late st Contact Info) Description 11/22/2019 Scan [facility] [address] [place] [address] Scanned, Documents Lab (SCAN) Social History Tobacco Use Types Packs/Day Years Used Date Smoking Tobacco: Every Day Cigarettes 0.5 15 Smokeless Tobacco: Never Alcohol Use Standard Drinks/Week Comments No 0 (1 standard drink = 0.6 oz pur e alcohol) Comments No Sex and Gender Information Value Date Recorded Sex Assigned at Not on file Legal Sex Female 9:15 PM WARDROBE TECHNICIAN Gender Identity Not on file Sexual [...] 11/22/2019 us Documents Scanned SCANNING Final Result [facility] ONBASE documented in this encounter Visit Diagnoses Not on filedocumented in this encounter Care Teams Regional Director Of Admissions Relationship Specialty Start Date End Date Hermes Ramirez III, MD [address] [facility] 105 [place] [address] PCP - General FAMILY PRACTICE 06/20/17 documented as of this encounter
--- OUTSIDE RECORDS SUMMARY | 2024-03-20 16:38 | XMS_ITS | Encounter Summary ---
Author Organization [facility] Address [address] [place] [address]. [place], [place] [address] [place] [address] Care Team Providers Care Shearing Machine Operator Name Role Phone Ashley ZUNIGA MD, Hermes Perez Primary Care Provid er Encounter Details Date Type Department Care Team (Late st Contact Info) Description 10/04/2019 Scan [facility] [address] [place] [address] Scanned, Documents Social History Tobacco Use Types Packs/Day Years Used Date Smoking Tobacco: Every Day Cigarettes 0.5 15 Smokeless Tobacco: Never Alcohol Use Standard Drinks/Week Comments No 0 (1 standard drink = 0.6 oz pur e alcohol) Comments No Sex and Gender Information Value Date Recorded Sex Assigned at Not on file Legal Sex Female 9:15 PM SURVEILLANCE SENSOR OPERATOR Gender Identity Not on file Sexual [...] on filedocumented in this encounter Care Teams Shearing Machine Operator Relationship Specialty Start Date End Date Hermes Ramirez III, MD [address] [facility] 105 [place] [address] PCP - General FAMILY PRACTICE 06/20/17 documented as of this encounter
--- OUTSIDE RECORDS SUMMARY | 2024-03-20 16:38 | XMS_ITS | Encounter Summary ---
Author Organization [facility] Address [address] [place] [address]. [place], [place] [address] [place] [address] Care Team Providers Care Fishery Division Chief Name Role Phone Ashley ZUNIGA MD, [...] on file Legal Sex Female 9:15 PM TANNER ROTARY DRUM CONTINUOUS PROCESS Gender Identity Not on file Sexual Orientation [...] on filedocumented in this encounter Care Teams Fishery Division Chief Relationship Specialty Start Date End Date Hermes Ramirez III, MD [address] [facility] 105 [place] [address] PCP - General FAMILY PRACTICE 06/20/17 documented as of this encounter
--- OUTSIDE RECORDS SUMMARY | 2024-03-20 16:38 | XMS_ITS | Encounter Summary ---
Author Organization [facility] Address [address] [place] [address]. [place] [address] [place] [address] Care Team Providers Care Sanitation Superintendent Name Role Phone Ashley ZUNIGA MD, Hermes Perez Primary Care Provid er Encounter Details Date Type Department Care Team (Late st Contact Info) Description 08/27/2019 Scan [facility] [address] [place] [address] Scanned, Documents Social History Tobacco Use Types Packs/Day Years Used Date Smoking Tobacco: Every Day Cigarettes 0.5 15 Smokeless Tobacco: Never Alcohol Use Standard Drinks/Week Comments No 0 (1 standard drink = 0.6 oz pur e alcohol) Comments No Sex and Gender Information Value Date Recorded Sex Assigned at Not on file Legal Sex Female 9:15 PM SENIOR PAYROLL ADMINISTRATOR Gender Identity Not on file Sexual Orientation Not on file documented as of this encounter Plan of Treatment Not on file documented as of this encounter Visit Diagnoses Not on filedocumented in this encounter Care Teams Sanitation Superintendent Relationship Specialty Start Date End Date Hermes Ramirez III, MD [address] [facility] 105 [place] [address] PCP - General FAMILY PRACTICE 06/20/17 documented as of this encounter
--- OUTSIDE RECORDS SUMMARY | 2024-03-20 16:38 | XMS_ITS | Encounter Summary ---
Author Organization [facility] Address [address] [place] [address]. [place] [address] [place] [address] Care Team Providers Care Knitting Machine Operator Automatic Name Role Phone Ashley ZUNIGA MD, Hermes Perez Primary Care Provid er Encounter Details Date Type Department Care Team (Late st Contact Info) Description 05/30/2019 Orders Only [facility] [place] [address] Murphy Mathew MD [address] [place] [address] Social History Tobacco Use Types Packs/Day Years Used Date Smoking Tobacco: Every Day Cigarettes 0.5 15 Smokeless Tobacco: Never Alcohol Use Standard Drinks/Week Comments No 0 (1 standard drink = 0.6 oz pur e alcohol) Comments No Sex and Gender Information Value Date Recorded Sex Assigned at Not on file Legal Sex Female 9:15 PM RECEIVER DISPATCHER Gender Identity Not on file Sexual Orientation Not on file documented as of this encounter Plan of Treatment Not on file documented as of this encounter Visit Diagnoses Diagnosis CKD (chronic kidney disease), stage II- Primary Chronic kidney disease, Stage II (mild) documented in this encounter Care Teams Knitting Machine Operator Automatic Relationship Specialty Start Date End Date Hermes Ramirez III, MD [address] [facility] 105 [place] [address] PCP - General FAMILY PRACTICE 06/20/17 documented as of this encounter
--- OUTSIDE RECORDS SUMMARY | 2024-03-20 16:38 | XMS_ITS | Encounter Summary ---
Author Organization [facility] Address [address] [place] [address]. [place], [place] [address] [place] [address] Care Team Providers Care Center Administrator Name Role Phone Ashley ZUNIGA MD, Hermes Perez Primary Care Provid er Reason for Visit * Reason Comments Back Pain Encounter Details Date Type Department Care Team (Late st Contact Info) Description 02/13/2019 11:13 AM COAL EQUIPMENT OPERATOR - 02/13/2019 1:13 PM COAL EQUIPMENT OPERATOR Emergency [facility] Emergency [address] [place] [address] Diana Mitchell, ELISA Back Pain Discharge Disposition: [...] on file Legal Sex Female 9:15 PM COAL EQUIPMENT OPERATOR Gender Identity Not on file Sexual Orientation Not on file documented as of this encounter Last Filed Vital Signs Vital Sign Reading Time Taken Comments Blood Pressure 126/59 02/13/2019 12:06 PM COAL EQUIPMENT OPERATOR Pulse 97 02/13/2019 12:06 PM COAL EQUIPMENT OPERATOR Temperature 37.2 ??C (98.9 ??F) 02/13/2019 1 2:06 PM COAL EQUIPMENT OPERATOR Respiratory Rate 18 02/13/2019 12:0 6 PM COAL EQUIPMENT OPERATOR Oxygen Saturation 100% 02/13/2019 11: 10 AM COAL EQUIPMENT OPERATOR Inhaled Oxygen Concentration - - Weight 81.6 kg (179 lb 14.3 oz) 019 11:10 AM COAL EQUIPMENT OPERATOR Height 157.5 cm (5' 2 ) 02/13/2019 11:1 0 AM COAL EQUIPMENT OPERATOR Body Mass Index 32.9 02/13/2019 11:10 AM COAL EQUIPMENT OPERATOR documented in this encounter Discharge Instructions * Discharge Instructions* Diana Mercado NP - 02/13/2019 1:09 PM COAL EQUIPMENT OPERATOR -Take Lidoderm, Flexeril and Medrol DosPak as [...] such as driving a caror operating machinery. EQUIPMENT OPERATOR * Attachments The following attachments cannot be sent through Care Everywhere. * Sciatica Discharge Instructions (Syrian) documented in this encounter Medications at Time [...] room. Pillow and blanket given for comfort. EQUIPMENT OPERATOR * Diana Mercado NP - 02/13/2019 11:16 [...] night. Pt said that she went to [place] ER last night and had some [...] PREG TEST Unknown NEGATIVE Results for MISHA BRWONE ( ) as of 02/13/2019 11:20 Ref. Range 02/12/2019 17:15 COLOR Unknown YELLOW TRANSPARENCY Unknown CLEAR Specific [place] (U) Unknown 1.010 U PH Latest Ref [...] Wed Feb 13, 2019 1119 Seen in [place] on 02/12/19, had lumbar ZR, UA and UCG (negative), all with no acute findings. Discharged on Medrol DosPak, Lidoderm patches and Flexeril. Has been unable to get meds filled. Has appointment with PCP today at 1530. Here now because she has had nothing for pain and it is worse. Right paraspinous muscle tenderness, no cauda equina symptoms. No recent injury. Will give [place] and Norflex. [LF] [id number] Patient reports that [...] Hermes Ramirez III, MD [address] [facility] 105 [facility] [address] On 02/13/2019 Keep appointment as scheduled for [...] Neil Altamirano MD at 02/20/2019 11:39 AM COAL EQUIPMENT OPERATOR EQUIPMENT OPERATOR EQUIPMENT OPERATOR * Radha Wan RN - 02/13/2019 11:09 AM CST PT ARRIVES TO TRIAGE WITH C.O SCIATIC PAIN SINCE LAST NIGHT. PT STATES SHE WAS SEEN IN [place] ER BUT THE PAIN HAS GOTTEN WORSE. EQUIPMENT OPERATOR documented in this encounter Plan [...] in 24 hours. Given 02/13/2019 11:40 AM COAL EQUIPMENT OPERATOR 1 tablet ondansetron (ZOFRAN-ODT) disintegrating tablet 4 mg 4 mg, Oral, Once, 1 dose, On Mon02/13/19 at 1200 Given 02/13/2019 11:52 AM COAL EQUIPMENT OPERATOR 4 mg orphenadrine (NORFLEX) injection 60 mg 60 mg, Intramuscular, Once, 1 dose, On Mon02/13/19 at 1145, If administering IV, give slow, approximately 5 minutes with patient in supine position. Patient should remain in this position for 5-10 minutes post injection. Given 02/13/2019 11:41 AM COAL EQUIPMENT OPERATOR 60 mg Left Dorsal Gluteal documented in this encounter Active and Recently Administered Medications Times are shown in COAL EQUIPMENT OPERATOR. Scheduled Medication Order 02/11/2019 02/12/2019 02/13/2019 hydrocodone-acetaminophen [...] RN) documented in this encounter Care Teams Center Administrator Relationship Specialty Start Date End Date Hermes Ramirez III, MD [address] [place] [address] PCP - General FAMILY PRACTICE 06/20/17 documented as of this encounter
--- OUTSIDE RECORDS SUMMARY | 2024-03-20 16:38 | XMS_ITS | Encounter Summary ---
Author Organization [facility] Address [address] [place] [address]. [place], [place] [address] [place] [address] Care Team Providers Care Chocolate Maker Name Role Phone Ashley ZUNIGA MD, Hermes Perez Primary Care Provid er Reason for Visit * Reason Comments Headache Encounter Details Date Type Department Care Team (Late st Contact Info) Description 10/06/2019 10:06 AM CDT - 10/06/2019 11:40 AM CDT Emergency [place] [facility] [place] [address] Akil Soriano MD [facility] [place] [address] Headache Discharge Disposition: Home or Self Care [...] on file Legal Sex Female 9:15 PM LINUX UNIX SYSTEM ADMINISTRATOR Gender Identity Not on file Sexual [...] Everywhere. * Migraines Discharge Instructions (Citizen Of [place]) documented in this encounter Medications at Time [...] declined) documented in this encounter Care Teams Chocolate Maker Relationship Specialty Start Date End Date Hermes Ramirez III, MD [address] [address] PCP - General FAMILY PRACTICE 06/20/17 documented as of this encounter
--- OUTSIDE RECORDS SUMMARY | 2024-03-20 16:38 | XMS_ITS | Encounter Summary ---
Author Organization [facility] Address [address] [place] [address]. [place], [place] [address] [place] [address] Care Team Providers Care Plate Take Out Worker Name Role Phone Ashley ZUNIGA MD, Hermes Perez Primary Care Provid er Reason for Visit * Reason Comments Back Pain Encounter Details Date Type Department Care Team ([facility] st Contact Info) Description 02/12/2019 4:56 PM GRINDER GEAR - 02/12/2019 6:55 PM GRINDER GEAR Emergency [facility] [address] [place] [address] [place] [id number] Akil Soriano MD [facility] [place] [address] Back Pain Discharge Disposition: Home or Self [...] on file Legal Sex Female 9:15 PM GRINDER GEAR Gender Identity Not on file Sexual Orientation Not on file documented as of this encounter Last Filed Vital Signs Vital Sign Reading Time Taken Comments Blood Pressure 124/74 02/12/2019 6:55 PM GRINDER GEAR Pulse 75 02/12/2019 6:55 PM GRINDER GEAR Temperature 36.5 ??C (97.7 ??F) 02/12/2019 5:07 PM CS T Respiratory Rate 18 02/12/2019 6:55 PM GRINDER GEAR Oxygen Saturation 100% 02/12/2019 6:11 PM GRINDER GEAR Inhaled Oxygen Concentration - - Weight 72.6 kg (160 lb) 02/12/2019 5:07 PM GRINDER GEAR Height 157.5 cm (5' 2 ) 02/12/2019 5:07 PM GRINDER GEAR Body Mass Index 29.26 02/12/2019 5:07 PM GRINDER GEAR documented in this encounter Discharge Instructions * Discharge Instructions* Akil Soriano MD - 02/12/2019 6:50 PM GRINDER GEAR No strenuous activity or heavy lifting. Use medications as prescribed. Keep appointment with your primary care physician tomorrow. DER GEAR DER GEAR * Attachments The following attachments cannot be sent through Care Everywhere. * Low Back Pain Discharge Instructions (Russian) documented in this encounter Medications at Time [...] iew of systems. History provided by: Patient agricultural adviser used: No Medical History ALLERGIES: Allergies Allergen [...] Value Ref Range PREG TEST NEGATIVE Specific [place] (U) 1.010 URINALYSIS WI REFLEX TO CULTURE Result Value Ref Range COLOR YELLOW TRANSPARENCY CLEAR Specific [place] (U) 1.010 1.000 - 1.025 U PH [...] LUMB SPINE 3V Final Result by User, [id number] (02/13 1828) EXAMINATION: XR LUMB SPINE 3V [...] patch (1 patch Transdermal Patch Applied 02/12/19 408) diazepam (VALIUM) tablet 5 mg (5 mg Oral Given 02/12/191740) predniSONE (DELTASONE) tablet 40 mg (40 mg Oral Given 02/12/191740) Current Discharge Medication List START taking these medications Details cyclobenzaprine 10 MG tablet Take 1 tablet (10 mg total) by mouth 3 (three) times daily as needed for Muscle Spasms. Qty: 15 tablet, Refills: 0 Class: Eprescribe Pharmacy: [facility]/pharmacy #[id number] [place] [address] (Ph #: [phone]) lidocaine 5 % Place 1 patch onto the skin daily for 12 doses. Remove & Discard patch within 12 hours or as directed by Qty: 12 patch, Refills: 0 Class: Eprescribe Pharmacy: [facility]/pharmacy #[address] [place] [address] (Ph #: [phone]) methylPREDNISolone, JAUN, 4 MG tablet Take 1 tablet (4 mg total) by mouth daily. 6 TAB ON DAY 1, 5 TAB DAY 2, 4 TAB DAY 3, 3 TAB DAY 4, 2 TAB DAY 5, AND 1 TAB DAY 6 Qty: 1 each, Refills: 0 Class: Eprescribe Pharmacy: [facility]/pharmacy #[address] [place] [address] (Ph #: [phone]) Hermes Ramirez III, MD [facility] [address] [address] Keep appointment tomorrow Clinical Impression Low back pain (Primary) Disposition: Discharge Taurus Grover, 02/12/19, 18:50. Provider Attestation: Portions of this note were transcribed by the scribe. I, Akil Soriano, personally performed the history, physical exam and medical decision making; and confirmed the accuracy of the information inthe transcribed note. Authenticated by Dr. Soriano on 02/12/2019 Akil Soriano MD 02/12/19 2210 DER GEAR * Carmelita Forbes RN - 02/12/2019 4:34 PM CST Patient presents to ed with co mid back pain. Has history of sciatic pain. Patient states pain began yesterday to mid back, radiates to right hip. Rates pain 8/10 on scale. DER GEAR documented in this encounter Plan of Treatment Not on file documented as of this encounter Procedures Procedure Name Priority Date/Time Associated Diagnosis Comments XR LUMB SPINE 3V STAT 02/12/2019 5:53 PM GRINDER GEAR URINALYSIS WI REFLEX TO CULTURE STAT 02/12/2019 5:15 PM GRINDER GEAR TEST URINE STAT 02/12/2019 5:15 PM GRINDER GEAR documented in this encounter Results * XR LUMB SPINE 3V (02/12/2019 5:53 PM GRINDER GEAR) Anatomical Region Laterality Modality Spine Radiographic Katy ging 02/12/2019 6:26 PM GRINDER GEAR Impressions 02/12/2019 6:27 PM GRINDER GEAR IMPRESSION: No acute osseous abnormality. ??Mild chronic degenerative change. Interpreted By: Henry Whitlock MD, 02/12/2019 6:26 PM Narrative 02/12/2019 6:27 PM GRINDER GEAR EXAMINATION: XR LUMB SPINE 3V HISTORY: Back [...] WI REFLEX TO CULTURE (02/12/2019 5:15 PM GRINDER GEAR) COLOR (U) YELLOW 02/12/2019 5:32 PM [facility] TRANSPARENCY CLEAR 02/12/2019 5:32 PM [facility] SPECIFIC GRAVITY (U) 1.010 1.000 - 1.025 02/12/2019 5:32 PM [facility] U PH 6.0 5.0 - 8.0 02/12/2019 5:32 PM [facility] LEUKOCYTES (U) NEGATIVE NEGATIVE 02/12/2019 5:32 PM [facility] NITRITES NEGATIVE NEGATIVE 02/12/2019 5:32 PM [facility] PROTEIN (U) NEGATIVE NEGATIVE 02/12/2019 5:32 PM [facility] URINE GLUCOSE NEGATIVE NEGATIVE 02/12/2019 5:32 PM [facility] KETONES MG/DL (U) NEGATIVE NEGATIVE 02/12/2019 5:32 PM [facility] UROBILINOGEN 0.2 <1.0 EU/DL 02/12/2019 5:32 PM [facility] BILIRUBIN (U) NEGATIVE NEGATIVE 02/12/2019 5:32 PM [facility] BLOOD (U) TRACE(A) NEGATIVE 02/12/2019 5:32 PM [facility] WBC/HPF 0-5 0 - 5 /HPF 02/12/2019 5:32 PM [facility] RBC/HPF 0-5 0 - 5 /HPF 02/12/2019 5:32 PM [facility] EPI/HPF FEW /LPF 02/12/2019 5:32 PM [facility] CULTURE & SENSITIVITY INDICATED? NOT INDICATED 02/12/2019 5:32 PM [facility] URINE SPECIMEN OBTAINED BY CLEAN CATCH PROCEDURE / Unknown 02/12/2019 5:15 PM GRINDER GEAR us Akil Soriano MD URINE ORDERABLES Final Resu lt [address] [address], [place] [phone] * TEST URINE (02/12/2019 5:15 PM GRINDER GEAR) PREG TEST NEGATIVE 02/12/2019 5:28 PM GRINDER GEAR [facility] SPECIFIC GRAVITY (U) 1.010 02/12/2019 5:28 PM GRINDER GEAR [facility] URINE SPECIMEN OBTAINED BY CLEAN CATCH PROCEDURE / Unknown 02/12/2019 5:15 PM GRINDER GEAR us Akil Soriano MD URINE ORDERABLES Final Resu lt Performing Organization Address City/[facility]/ZIP Co de Phone Number [address] [address], [place] [phone] documented in this encounter Visit Diagnoses Diagnosis Low back pain- Primary Lumbago documented in this encounter Administered Medications Inactive Administered Medications - up to 3 most recent administrations Medication Order MAR Action Action Date Dose Rate Site diazepam (VALIUM) tablet 5 mg 5 mg, Oral, Once, 1 dose, On Mon02/12/19 at 1745 Given 02/12/2019 5:41 PM GRINDER GEAR 5 mg lidocaine 4 % patch 1 patch 1 patch, Transdermal, Administer over 12 Hours, Every 24 hours, First dose on Mon02/12/19 at 1745, Until Discontinued Patch Applied 02/12/2019 5:43 PM GRINDER GEAR 1 patch Othe r predniSONE (DELTASONE) tablet 40 mg 40 mg, Oral, Once, 1 dose, On Mon02/12/19 at 1745 Given 02/12/2019 5:41 PM GRINDER GEAR 40 mg documented in this encounter Active and Recently Administered Medications Times are shown in GRINDER GEAR. Scheduled Medication Order 02/10/2019 02/11/2019 02/12/2019 diazepam [...] RN) documented in this encounter Care Teams Plate Take Out Worker Relationship Specialty Start Date End Date Hermes Ramirez III, MD [address] [facility] 105 [place] [address] PCP - General FAMILY PRACTICE 06/20/17 documented as of this encounter
--- OUTSIDE RECORDS SUMMARY | 2024-03-20 16:38 | XMS_ITS | Encounter Summary ---
Author Organization [facility] Address [address] [place] [address]. [place], [place] [address] [place] [address] Care Team Providers Care Logistics Analytics Manager Name Role Phone Ashley ZUNIGA MD, Hermes Perez Primary Care Provid er Reason for Visit * Reason Onset Date Comments Other 01/14/2019 er visit Encounter Details Date Type Department Care Team ([facility] st Contact Info) Description 01/14/2019 Telephone [facility] [address] [place] [address] [place] [address] [place] [address] Other (er visit) Social History Tobacco Use Types Packs/Day Years Used Date Smoking Tobacco: Every Day Cigarettes 0.5 15 Smokeless Tobacco: Never Alcohol Use Standard Drinks/Week Comments No 0 (1 standard drink = 0.6 oz pur e alcohol) Comments No Sex and Gender Information Value Date Recorded Sex Assigned at Not on file Legal Sex Female 9:15 PM OIL OPERATOR Gender Identity Not on file Sexual [...] on filedocumented in this encounter Care Teams Logistics Analytics Manager Relationship Specialty Start Date End Date Hermes Ramirez III, MD [address] [address] PCP - General FAMILY PRACTICE 06/20/17 documented as of this encounter
--- OUTSIDE RECORDS SUMMARY | 2024-03-20 16:39 | XMS_ITS | Encounter Summary ---
Author Organization [facility] Address [address] [place] [address]. [place] [address] [place] [address] Care Team Providers Care Electronics Repair Technician Name Role Phone Ashley ZUNIGA MD, Hermes Perez Primary Care Provid er Encounter Details Date Type Department Care Team (Late st Contact Info) Description 04/10/2018 Abstract [facility] [address] [facility] 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
--- OUTSIDE RECORDS SUMMARY | 2024-03-20 16:39 | XMS_ITS | Encounter Summary ---
Author Organization [facility] Address [address] [place] [address]. [place] [address] [place] [address] Care Team Providers Care Stull Installer Name Role Phone Ashley ZUNIGA MD, Hermes Perez Primary Care Provid er Encounter Details Date Type Department Care Team (Late st Contact Info) Description 03/05/2018 Abstract [facility] [address] [facility] [place] [address] Ziyad Hu MD [address] [place] [address] Social History Tobacco Use Types Packs/Day Years Used Date Smoking Tobacco: Every Day Cigarettes 0.5 15 Smokeless Tobacco: Never Alcohol Use Standard Drinks/Week Comments No 0 (1 standard drink = 0.6 oz pur e alcohol) Comments No Sex and Gender Information Value Date Recorded Sex Assigned at Not on file Legal Sex Female 9:15 PM WAREHOUSE DIRECTOR Gender Identity Not on file Sexual Orientation Not on file documented as of this encounter Plan of Treatment Not on file documented as of this encounter Visit Diagnoses Diagnosis Headache documented in this encounter Care Teams Stull Installer Relationship Specialty Start Date End Date Hermes Ramirez III, MD [address] [facility] 105 [place] [address] PCP - General FAMILY PRACTICE 06/20/17 documented as of this encounter
--- OUTSIDE RECORDS SUMMARY | 2024-03-20 16:39 | XMS_ITS | Encounter Summary ---
Author Organization [facility] Address [address] [place] [address]. [place] [address] [place] [address] Care Team Providers Care Immunology Teacher Name Role Phone Ashley ZUNIGA MD, Hermes Perez Primary Care Provid er Encounter Details Date Type Department Care Team (Late st Contact Info) Description 03/03/2018 Abstract [facility] [address] [facility] [place], [place] [address] David Box MD [address] [facility] [address] [place], [place] [id number] Social History Tobacco Use Types Packs/Day Years Used Date Smoking Tobacco: Every Day Cigarettes 0.5 15 Smokeless Tobacco: Never Alcohol Use Standard Drinks/Week Comments No 0 (1 standard drink = 0.6 oz pur e alcohol) Comments No Sex and Gender Information Value Date Recorded Sex Assigned at Not on file Legal Sex Female 9:15 PM DOLLY OPERATOR Gender Identity Not on file Sexual Orientation Not on file documented as of this encounter Plan of Treatment Not on file documented as of this encounter Visit Diagnoses Diagnosis Migraine without status migrainosus, not intractable Migraine, unspecified, without mention of intractable migraine without mention of status migrainosus documented in this encounter Care Teams Immunology Teacher Relationship Specialty Start Date End Date Hermes Ramirez III, MD [address] [facility] 105 [place] [address] PCP - General FAMILY PRACTICE 06/20/17 documented as of this encounter
--- OUTSIDE RECORDS SUMMARY | 2024-03-20 16:39 | XMS_ITS | Encounter Summary ---
Author Organization [facility] Address [address] [place] [address]. [place], [place] [address] [place] [address] Care Team Providers Care Rip Machine Operator Name Role Phone Aslhey ZUNIGA MD, Hermes Perez Primary Care Provid er Encounter Details Date Type Department Care Team (Late st Contact Info) Description 08/22/2018 Abstract [facility] [address] [place] [address] Social History Tobacco Use Types Packs/Day Years Used Date Smoking Tobacco: Every Day Cigarettes 0.5 15 Smokeless Tobacco: Never Alcohol Use Standard Drinks/Week Comments No 0 (1 standard drink = 0.6 oz pur e alcohol) Comments No Sex and Gender Information Value Date Recorded Sex Assigned at Not on file Legal Sex Female 9:15 PM STUDIO ARTIST Gender Identity Not on file Sexual Orientation Not on file documented as of this encounter Plan of Treatment Not on file documented as of this encounter Visit Diagnoses Not on filedocumented in this encounter Additional Health Concerns Infection Onset Date Last Indicated Resolved Time COVID-19 Rule Out 03/30/2020 03/30/2020 03/30/2020 9:29 PM STUDIO ARTIST COVID-19 Rule Out 03/30/2020 03/30/2020 03/31/2020 12:28 PM STUDIO ARTIST COVID-19 Rule Out 02/16/2024 02/16/2024 02/16/2024 9:16 PM STUDIO ARTIST Rhinovirus 02/16/2024 02/16/2024 02/26/2024 12:3 2 AM STUDIO ARTIST documented as of this encounter Care Teams Rip Machine Operator Relationship Specialty Start Date End Date Hermes Ramirez III, MD [address] [facility] 105 [place] [address] PCP - General FAMILY PRACTICE 06/20/17 documented as of this encounter
--- OUTSIDE RECORDS SUMMARY | 2024-03-20 16:39 | XMS_ITS | Encounter Summary ---
Author Organization [facility] Address [address] [place] [address]. [place], [place] [address] [place] [address] Care Team Providers Care Core Cutter Name Role Phone Ashley ZUNIGA MD, Hermes Perez Primary Care Provid er Encounter Details Date Type Department Care Team (Latest Contact Info) Description 11/13/2017 Abstract [facility] , Lazara Lange MD Social History Tobacco Use Types Packs/Day Years Used Date Smoking Tobacco: Every Day Cigarettes 0.5 15 Smokeless Tobacco: Never Alcohol Use Standard Drinks/Week Comments No 0 (1 standard drink = 0.6 oz pur e alcohol) Comments No Sex and Gender Information Value Date Recorded Sex Assigned at Not on file Legal Sex Female 9:15 PM CHIEF 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 Has seen in [place] in the past. Recent Hospitalizatiion for Pancreatitis [...] Jennings MD Electronically signed by: MARIA ISABEL JENNINSG Date: 11/21/2017 16:17 documented in this encounter Plan of Treatment Not on file documented as of this encounter Procedures Procedure Name Priority Date/Time Associated Diagnosis Comments THINPREP IMAGING SYSTEM PAP Routine 11/13/2017 2:57 PM CDT documented in this encounter Results * THINPREP IMAGING SYSTEM PAP (11/13/2017 2:57 PM CDT) THIN PREP PAP [facility] UP TO EPIC CONVERSION Comment: Patient Name: MISHA JACKSON Specimen #: [id number] ?? Procedure Date: 11/13/2017 /Age: 7 1980 (Age: 37) Gender: ??F Accessioned: 11/14/2017 Address: [address] ??[address] Reported: 11/21/2017 ?? Encounter: [id number] Location: [facility] Pain Doctor [facility] ?? Physician(s): MARIA ISABEL JENNINGS MD ?? : ? CYTOPATHOLOGY - GYNECOLOGIC REPORT Diagnosis: TEST NAME: ??THINPREP PAP WITH ASSET COORDINATOR,REFLEX HPV-ASCUS AND ABOVE INTERPRETATION/RESULT: NEGATIVE FOR INTRAEPITHELIAL LESION OR MALIGNANCY. THE ABSENCE OF AN ENDOCERVICAL COMPONENT WAS CONFIRMED BY AN ADDITIONAL SCREENER. STATEMENT OF ADEQUACY: SATISFACTORY FOR EVALUATION; ENDOCERVICAL/TRANSFORMATION ZONE COMPONENT ABSENT. ?? SXN ELIDA GROVER(ASCP) [facility] [place]/11/21/2017 Report Electronically Signed Specimen: THINPREP PAP WITH ASSET COORDINATOR,REFLEX HPV-ASCUS AND ABOVE Clinical Diagnosis and History [...] 11/13/2017 2:57 PM CDT Narrative [facility] CONVERSION - 11/13/2017 2:57 PM CDT [Task Forwarded to [facility]] [place] Maria Isabel Jennings MD PATHOLOGY/CYTOLOGY ORDERAB LES Final Result [facility] CONVERSION documented in this encounter Visit Diagnoses Not on filedocumented in this encounter Care Teams Core Cutter Relationship Specialty Start Date End Date Hermes Ramirez III, MD [address] [facility]TH [facility] [address] [place] [address] PCP - General FAMILY PRACTICE 06/20/17 documented as of this encounter
--- OUTSIDE RECORDS SUMMARY | 2024-03-20 16:39 | XMS_ITS | Encounter Summary ---
Author Organization [facility] Address [address] [place] [address]. 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 Take [id number] Tylenol and ibuprofen as directed. Call primary care in the morning give a condition update and arrange a follow-up appointment in 2 to 3 days. Return to the emergency room if symptoms worsen or change. * Attachments The following attachments cannot be sent through Care Everywhere. * Headache Discharge Instructions, Adult (Nicaraguan) documented in this encounter Medications at Time [...] LPN) documented in this encounter Care Teams Renal Medicine Specialist Relationship Specialty Start Date End Date Hermes Ramirez III, MD [address] [place] [address] PCP - General FAMILY PRACTICE 06/20/17 documented as of this encounter
--- OUTSIDE RECORDS SUMMARY | 2024-03-20 16:39 | XMS_ITS | Encounter Summary ---
Author Organization [facility] Address [address] [place] [address]. [place], [place] [address] [place] [address] Care Team Providers Care Oil Bay Technician Name Role Phone Ashley ZUNIGA MD, Hermes Perez Primary Care Provid er Encounter Details Date Type Department Care Team (Late st Contact Info) Description 08/30/2018 Orders Only [facility] [address] [place] [address] Tiny López, OYSTER FARMER Social History Tobacco Use Types Packs/Day Years Used Date Smoking Tobacco: Every Day Cigarettes 0.5 15 Smokeless Tobacco: Never Alcohol Use Standard Drinks/Week Comments No 0 (1 standard drink = 0.6 oz pur e alcohol) Comments No Sex and Gender Information Value Date Recorded Sex Assigned at Not on file Legal Sex Female 9:15 PM CABIN OUTFITTER Gender Identity Not on file Sexual Orientation Not on file documented as of this encounter Plan of Treatment Not on file documented as of this encounter Visit Diagnoses Not on filedocumented in this encounter Care Teams Oil Bay Technician Relationship Specialty Start Date End Date Hermes Ramirez III, MD [address] [email or web address] [address] [place] [address] PCP - General FAMILY PRACTICE 06/20/17 documented as of this encounter
--- OUTSIDE RECORDS SUMMARY | 2024-03-20 16:39 | XMS_ITS | Encounter Summary ---
Author Organization [facility] Address [address] [place] [address]. [place] [address] [place] [address] Care Team Providers Care Instrument Repairer Name Role Phone Ashley ZUNIGA MD, Hermes Perez Primary Care Provid er Encounter Details Date Type Department Care Team (Latest Contact Info) Description 05/17/2018 Abstract [facility] Murphy Mathew MD [address] [place] [address] Social History Tobacco Use Types Packs/Day Years Used Date Smoking Tobacco: Every Day Cigarettes 0.5 15 Smokeless Tobacco: Never Alcohol Use Standard Drinks/Week Comments No 0 (1 standard drink = 0.6 oz pur e alcohol) Comments No Sex and Gender Information Value Date Recorded Sex Assigned at Not on file Legal Sex Female 9:15 PM CYLINDER DYER Gender Identity Not on file Sexual Orientation Not on file documented as of this encounter Last Filed Vital Signs Vital Sign Reading Time Taken Comments Blood Pressure 141/92 05/17/2018 3:17 PM CYLINDER DYER Pulse 93 05/17/2018 3:17 PM CYLINDER DYER Temperature - - Respiratory Rate - - Oxygen Saturation - - Inhaled Oxygen Concentration - - Weight 79.7 kg (175 lb 11.3 oz) 05/17/2018 3:17 PM CYLINDER DYER Height 157.5 cm (5' 2 ) 05/17/2018 3:17 PM CYLINDER DYER Body Mass Index 32.14 05/17/2018 3:17 PM CYLINDER DYER documented in this encounter Progress Notes * Murphy Mathew MD - 05/17/2018 2:45 PM CST Chief Complaint 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 She saw liver transplants at [facility] in December last year, Prograf dose was [...] Capsule; TAKE 2 CAPSULE Twice daily; Therapy: (Recorded:[id number]) to Recorded 2. Sodium Bicarbonate 650 MG Oral Tablet; TAKE 2 TABLETS BY MOUTH 3 TIMES A DAY DIRECTED; Therapy: [id number] to (Evaluate:[id number]) Requested for: 28Aug2017; Last Rx:[id number] Ordered Allergies [...] Murphy Mathew M.D.; May 18 2018 10:59AM CYLINDER DYER (Author) documented in this encounter Plan of Treatment Not on file documented as of this encounter Visit Diagnoses Not on filedocumented in this encounter Care Teams Instrument Repairer Relationship Specialty Start Date End Date Hermes Ramirez III, MD [address] [facility] 105 [place] [address] PCP - General FAMILY PRACTICE 06/20/17 documented as of this encounter
--- OUTSIDE RECORDS SUMMARY | 2024-03-20 16:39 | XMS_ITS | Encounter Summary ---
Author Organization [facility] Address [address] [place] [address]. [place], [place] [address] [place] [address] Care Team Providers Care Cigarette Tester Name Role Phone Ashley ZUNIGA MD, Hermes Perez Primary Care Provid er Encounter Details Date Type Department Care Team (Late st Contact Info) Description 08/25/2018 Abstract [facility] [address] [place] [address] , Generic MD Anisa Social History Tobacco Use Types Packs/Day Years Used Date Smoking Tobacco: Every Day Cigarettes 0.5 15 Smokeless Tobacco: Never Alcohol Use Standard Drinks/Week Comments No 0 (1 standard drink = 0.6 oz pur e alcohol) Comments No Sex and Gender Information Value Date Recorded Sex Assigned at Not on file Legal Sex Female 9:15 PM BICYCLE MECHANIC Gender Identity Not on file Sexual Orientation Not on file documented as of this encounter Plan of Treatment Not on file documented as of this encounter Visit Diagnoses Not on filedocumented in this encounter Additional Health Concerns Infection Onset Date Last Indicated Resolved Time COVID-19 Rule Out 03/30/2020 03/30/2020 03/30/2020 9:29 PM BICYCLE MECHANIC COVID-19 Rule Out 03/30/2020 03/30/2020 03/31/2020 12:28 PM BICYCLE MECHANIC COVID-19 Rule Out 02/16/2024 02/16/2024 02/16/2024 9:16 PM BICYCLE MECHANIC Rhinovirus 02/16/2024 02/16/2024 02/26/2024 12:3 2 AM BICYCLE MECHANIC documented as of this encounter Care Teams Cigarette Tester Relationship Specialty Start Date End Date Hermes Ramirez III, MD [address] [facility] 105 [place] [address] PCP - General FAMILY PRACTICE 06/20/17 documented as of this encounter
--- OUTSIDE RECORDS SUMMARY | 2024-03-20 16:39 | XMS_ITS | Encounter Summary ---
Author Organization [facility] Address [address] [place] [address]. [place] [address] [place] [address] Care Team Providers Care Forestry Tree Pruner Name Role Phone Ashley ZUNIGA MD, Hermes Perez Primary Care Provid er Encounter Details Date Type Department Care Team (Late st Contact Info) Description 02/27/2018 Abstract [facility] [address] [facility], [place] [id number] Bob Lucas MD [address] [facility] 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 REPAIRER Gender Identity Not on file Sexual Orientation Not on file documented as of this encounter Plan of Treatment Not on file documented as of this encounter Visit Diagnoses Diagnosis Migraine without status migrainosus, not intractable Migraine, unspecified, without mention of intractable migraine without mention of status migrainosus documented in this encounter Care Teams Forestry Tree Pruner Relationship Specialty Start Date End Date Hermes Ramirez III, MD [address] [facility] [address] [place] [address] PCP - General FAMILY PRACTICE 06/20/17 documented as of this encounter
--- OUTSIDE RECORDS SUMMARY | 2024-03-20 16:39 | XMS_ITS | Encounter Summary ---
Author Organization [facility] Address [address] [place] [address]. [place], [place] [address] [place] [address] Care Team Providers Care School Fundraising Director Name Role Phone Ashley ZUNIGA MD, Hermes Perez Primary Care Provid er Encounter Details Date Type Department Care Team (Latest Contact Info) Description 01/02/2018 Abstract [facility] , Lazara Lange MD Social History Tobacco Use Types Packs/Day Years Used Date Smoking Tobacco: Every Day Cigarettes 0.5 15 Smokeless Tobacco: Never Alcohol Use Standard Drinks/Week Comments No 0 (1 standard drink = 0.6 oz pur e alcohol) Comments No Sex and Gender Information Value Date Recorded Sex Assigned at Not on file Legal Sex Female 9:15 PM ENGINE ROOM HELPER Gender Identity Not on file Sexual Orientation Not on file documented as of this encounter Plan of Treatment Not on file documented as of this encounter Visit Diagnoses Not on filedocumented in this encounter Care Teams School Fundraising Director Relationship Specialty Start Date End Date Hermes Ramirez III, MD [address] [facility] 105 [place] [address] PCP - General FAMILY PRACTICE 06/20/17 documented as of this encounter
--- OUTSIDE RECORDS SUMMARY | 2024-03-20 16:39 | XMS_ITS | Encounter Summary ---
Author Organization [facility] Address [address] [place] [address]. [place], [place] [address] [place] [address] Care Team Providers Care Community Relations Representative Name Role Phone Ashley ZUNIGA MD, Hermes Perez Primary Care Provid er Encounter Details Date Type Department Care Team (Latest Contact Info) Description 04/24/2018 Abstract [facility] Medical [facility] , Lazara Lange MD Social History Tobacco Use Types Packs/Day Years Used Date Smoking Tobacco: Every Day Cigarettes 0.5 15 Smokeless Tobacco: Never Alcohol Use Standard Drinks/Week Comments No 0 (1 standard drink = 0.6 oz pur e alcohol) Comments No Sex and Gender Information Value Date Recorded Sex Assigned at Not on file Legal Sex Female 9:15 PM ANIMAL CARE GIVER Gender Identity Not on file Sexual Orientation Not on file documented as of this encounter Plan of Treatment Not on file documented as of this encounter Visit Diagnoses Not on filedocumented in this encounter Care Teams Community Relations Representative Relationship Specialty Start Date End Date Hermes Ramirez III, MD [address] [facility] 105 [place] [address] PCP - General FAMILY PRACTICE 06/20/17 documented as of this encounter
--- OUTSIDE RECORDS SUMMARY | 2024-03-20 16:39 | XMS_ITS | Encounter Summary ---
Author Organization [facility] Address [address] [place] [address]. [place], [place] [address] [place] [address] Care Team Providers Care Associate Software Engineer Name Role Phone Ashley ZUNIGA MD, Hermes Perez Primary Care Provid er Reason for Visit * Reason Comments Headache MIGRAINE Encounter Details Date Type Department Care Team (Late st Contact Info) Description 11/15/2017 3:54 PM CDT - 11/15/2017 4:30 PM CDT Emergency [place] [facility] [address] [facility] [place] [address] Akil Khoury, APNP [address] [place] [address] Headache (MIGRAINE) Discharge Disposition: Home or Self [...] on file Legal Sex Female 9:15 PM ROLLER STRUCTURAL MILL Gender Identity Not on file Sexual [...] my headaches. Where can I learn more? Egyptian Family Physician http://www.aafp.org/afp/topicModules/viewTopicModule.htm?topicModuleId=10 National Headache Foundation http://www.headaches.org/education/Tools_for_Sufferers/Headache_-_Frequently_Ask ed_Questions National [place] of Neurological Disorders and Stroke http://www.ninds.nih.gov/disorders/headache/headache.htm NHS [...] right for you. Copyright Copyright ?? 2018 [employer]. and its affiliates and/or licensors. All rights [...] Ramirez III, MD [address] [facility] 105 [facility] [address] In 3 days ROSE MARIE DEL VALLE [...] LPN) documented in this encounter Care Teams Associate Software Engineer Relationship Specialty Start Date End Date Hermes Ramirez III, MD [address] [address] PCP - General FAMILY PRACTICE 06/20/17 documented as of this encounter
--- OUTSIDE RECORDS SUMMARY | 2024-03-20 16:39 | XMS_ITS | Encounter Summary ---
Author Organization [facility] Address [address] [place] [address]. [place], [place] [address] [place] [address] Care Team Providers Care Critical Care Registered Nurse Name Role Phone Ashley ZUNIGA MD, Hermes Perez Primary Care Provid er Encounter Details Date Type Department Care Team (Latest Contact Info) Description 01/10/[address] [facility] Medical Group , Lazara Lange MD Social History Tobacco Use Types Packs/Day Years Used Date Smoking Tobacco: Every Day Cigarettes 0.5 15 Smokeless Tobacco: Never Alcohol Use Standard Drinks/Week Comments No 0 (1 standard drink = 0.6 oz pur e alcohol) Comments No Sex and Gender Information Value Date Recorded Sex Assigned at Not on file Legal Sex Female 9:[address] DRIVER Gender Identity Not on file Sexual Orientation Not on file documented as of this encounter Plan of Treatment Not on file documented as of this encounter Visit Diagnoses Not on filedocumented in this encounter Care Teams Critical Care Registered Nurse Relationship Specialty Start Date End Date Hermes Ramirez III, MD [address] [facility] 105 [place] [address] PCP - General FAMILY PRACTICE 06/20/17 documented as of this encounter
--- OUTSIDE RECORDS SUMMARY | 2024-03-20 16:39 | XMS_ITS | Encounter Summary ---
Author Organization [facility] Address [address] [place] [address]. [place] [address] [place] [address] Care Team Providers Care Decorator Lighting Fixtures Name Role Phone Ashley ZUNIGA MD, Hermes Perez Primary Care Provid er Reason for Visit * Reason Comments Vaginal Pain LASER SURGERY FOR HP V LAST MONDAY STATES HAVING A GREEN DISCHARGE AND THE AREA IS VERY PAINFUL Encounter Details Date Type Department Care Team (Late st Contact Info) Description 01/16/2018 2:23 PM CDT - 01/16/2018 3:18 PM CDT Emergency [place] [facility] [address] [place] 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 Astorga * [...] mg (4 mg Oral Given 01/16/18 1508) [facility] Discharge Medication List as of 01/16/2018 2:58 PM START taking these medications Details codeine sulfate 15 MG Tab tablet Take 15 mg by mouth every 6 (six) hours as needed for Pain., Starting Mon01/16/2018, Print Class: Print Pharmacy: [facility]/pharmacy #[id number] - [place], [place] - [address] [place] [address] (Ph #: [phone]) Discharge Clinical Impression Pain of female genitalia [...] RN) documented in this encounter Care Teams Decorator Lighting Fixtures Relationship Specialty Start Date End Date Hermes Ramirez III, MD [address] [facility] 105 [place] [address] PCP - General FAMILY PRACTICE 06/20/17 documented as of this encounter
--- OUTSIDE RECORDS SUMMARY | 2024-03-20 16:39 | XMS_ITS | Encounter Summary ---
Author Organization [facility] Address [address] [place] [address]. 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 * Migraine Headache Discharge Instructions (Grenadian) documented in this encounter Medications at Time [...] RN - 11/02/2018 4:38 PM CDT RN CLERICAL SECRETARY SPOKE WITH DR. MARIE ABOUT PT REQUEST TO GET SAME MEDICATIONS SHE RECEIVED ON HER LAST VISIT. DR. MARIE GIVES NO NEW ORDERS. * Merary Ramirez RN - 11/02/2018 4:35 PM CDT RN CLERICAL SECRETARY IN PT ROOM STARTING IV. PT ASKING WHAT MEDICATIONS SHE IS GETTING. PT INFORMED OF MEDICATIONS THAT DR. MARIE HAS ORDERED. PT STATES I DON'T WANT THE REGLAN, IT MAKES ME FEEL LIKE I AM CRAWLING OUT OF MY SKIN . PT STATES CAN'T HE JUST GIVE ME WHAT THEY GAVE ME THE LAST TIME I WAS HERE. INFORMED PT THAT RN CLERICAL SECRETARY WOULD SPEAK TO DR. MARIE. * [place] [...] List Hermes Ramirez III, MD [address] [facility] [address] [facility] [address] In 3 days As needed MDM Number [...] RN) documented in this encounter Care Teams Production Manager Relationship Specialty Start Date End Date Hermes Ramirez III, MD [address] [facility] 105 [place] [address] PCP - General FAMILY PRACTICE 06/20/17 documented as of this encounter
--- OUTSIDE RECORDS SUMMARY | 2024-03-20 16:39 | XMS_ITS | Encounter Summary ---
Author Organization [facility] Address [address] [place] [address]. [place], [place] [address] [place] [address] Care Team Providers Care Ballet Teacher Name Role Phone Ashley ZUNIGA MD, Hermes Perez Primary Care Provid er Encounter Details Date Type Department Care Team (Latest Contact Info) Description 02/14/2018 Abstract [facility] , Lazara Lange MD Social History Tobacco Use Types Packs/Day Years Used Date Smoking Tobacco: Every Day Cigarettes 0.5 15 Smokeless Tobacco: Never Alcohol Use Standard Drinks/Week Comments No 0 (1 standard drink = 0.6 oz pur e alcohol) Comments No Sex and Gender Information Value Date Recorded Sex Assigned at Not on file Legal Sex Female 9:15 PM TIME STUDY CLERK Gender Identity Not on file Sexual Orientation Not on file documented as of this encounter Last Filed Vital Signs Vital Sign Reading Time Taken Comments Blood Pressure 148/82 02/14/2018 3:19 PM TIME STUDY CLERK Pulse - - Temperature - - Respiratory Rate - - Oxygen Saturation - - Inhaled Oxygen Concentration - - Weight 77.1 kg (170 lb) 02/14/2018 3:19 PM TIME STUDY CLERK Height 157.5 cm (5' 2 ) 02/14/2018 3:19 PM TIME STUDY CLERK Body Mass Index 31.09 02/14/2018 3:19 PM TIME STUDY CLERK documented in this encounter Progress Notes * [...] VIN3 and IFEANYI 3. Has seen in [place] in the past. Recent Hospitalizatiion for Pancreatitis [...] IMAGING SYSTEM PAP Routine 02/14/2018 3:45 PM TIME STUDY CLERK documented in this encounter Results * THINPREP IMAGING SYSTEM PAP (02/14/2018 3:45 PM TIME STUDY CLERK) THIN PREP PAP [facility] CONVERSION Comment: Patient Name: MISHA JACKSON Specimen #: [id number] ?? Procedure Date: 02/14/2018 /Age: 7 1980 (Age: 37) Gender: ??F Accessioned: 02/15/2018 Address: [address] ??[address] Reported: 02/20/2018 ?? Encounter: [id number] Location: [facility] ?? Physician(s): MARIA ISABEL JENNINGS MD ?? : ? CYTOPATHOLOGY - GYNECOLOGIC REPORT Diagnosis: TEST NAME: ??THINPREP PAP WITH SEISMOGRAPH OPERATOR HELPER,REFLEX HPV-ASCUS AND ABOVE INTERPRETATION/RESULT: NEGATIVE FOR INTRAEPITHELIAL LESION OR MALIGNANCY. SHIFT IN KERRI SUGGESTIVE OF BACTERIAL VAGINOSIS IS PRESENT. THE ABSENCE OF AN ENDOCERVICAL COMPONENT WAS CONFIRMED BY AN ADDITIONAL SCREENER. STATEMENT OF ADEQUACY: SATISFACTORY FOR EVALUATION; ENDOCERVICAL/TRANSFORMATION ZONE COMPONENT ABSENT. ?? TMD ELIDA MILLER(ASCP) ls/02/20/2018 Report Electronically Signed Specimen: THINPREP PAP WITH SEISMOGRAPH OPERATOR HELPER,REFLEX HPV-ASCUS AND ABOVE Clinical Diagnosis and History Date of Last Menstrual Period: ? . Specimen Source: Cervical/Endocervical ? PAP SMEARS ARE SCREENING TESTS SUBJECT TO BOTH FALSE NEGATIVE AND FALSE POSITIVE RESULTS EVIDENCED BY DATA PUBLISHED IN THE MEDICAL LITERATURE. YOUR PATIENT'S RESULT SHOULD BE INTERPRETED IN THIS CONTEXT, TOGETHER WITH THE PATIENT'S HISTORY AND CLINICAL FINDINGS. 02/14/2018 3:45 PM TIME STUDY CLERK Narrative [facility] TO [facility] CONVERSION - 02/14/2018 3:45 PM TIME STUDY CLERK [Task Forwarded to [facility]] notify and treat, metrogel RTO 4 wks. for RADHA us Maria Isabel Jennings MD PATHOLOGY/CYTOLOGY ORDERAB LES Final Result [facility] CONVERSION documented in this encounter Visit Diagnoses Not on filedocumented in this encounter Care Teams Ballet Teacher Relationship Specialty Start Date End Date Hermes Ramirez III, MD [address] [facility] [address] [place] [address] PCP - General FAMILY PRACTICE 06/20/17 documented as of this encounter
--- OUTSIDE RECORDS SUMMARY | 2024-03-20 16:39 | XMS_ITS | Encounter Summary ---
Author Organization [facility] Address [address] [place] [address]. [place] [address] [place] [address] Care Team Providers Care Esl Instructor Name Role Phone Ashley ZUNIGA MD, Hermes Perez Primary Care Provid er Encounter Details Date Type Department Care Team (Latest Contact Info) Description 11/15/2017 Abstract [facility] Ar Laws MD [address] [place] [address] [address] [place] [address] Social History Tobacco Use Types Packs/Day Years Used Date Smoking Tobacco: Every Day Cigarettes 0.5 15 Smokeless Tobacco: Never Alcohol Use Standard Drinks/Week Comments No 0 (1 standard drink = 0.6 oz pur e alcohol) Comments No Sex and Gender Information Value Date Recorded Sex Assigned at Not on file Legal 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 Has seen in [place] in the past. Recent Hospitalizatiion for Pancreatitis [...] on filedocumented in this encounter Care Teams Esl Instructor Relationship Specialty Start Date End Date Hermes Ramirez III, MD [facility] [address] [address] PCP - General FAMILY PRACTICE 06/20/17 documented as of this encounter
--- OUTSIDE RECORDS SUMMARY | 2024-03-20 16:39 | XMS_ITS | Encounter Summary ---
Author Organization [facility] Address [address] [place] [address]. 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 Call your fish hatchery man and primary care doctor tomorrow for appointments to be seen as soon as possible as discussed. Return to emergency department for any new or worsening concerns. * Attachments The following attachments cannot be sent through Care Everywhere. * Chronic Kidney Disease Discharge Instructions ([place] Zealander) * Severe Abdominal Pain Discharge Instructions, Adult ([place]alander) documented in this encounter Medications at Time [...] Range COLOR LIGHT YELLOW TRANSPARENCY CLEAR Specific [place] (U) 1.009 1.002 - 1.035 U PH [...] she would prefer to follow-up with her fish hatchery man as outpatient, reports she has good rapport with her fish hatchery man and will call tomorrow. She alsoappears to have a metabolic alkalosis, reports she takes bicarb at home for her chronic kidney disease. Patient reports her epigastric pain has improved after medications and is requesting to return home. She is able to tolerate p.o. without difficulty. She will call her fish hatchery man and primary care doctor tomorrow for appointments. [...] TACROLIMUS 6.5 NG/ML 01/10/2019 9:17 AM CDT [facility] Comment: A target range of 8 [...] before changes in treatment regimen are made. [facility], [address] [facility], [place] [address] 01/08/2019 10:5 2 PM CDT us Kris Caruso CLAM DREDGER LABORATORY Final Resul t [facility] [address] [place] [address], [phone] * (ABNORMAL) CBC W/DIFF AUTOMATED (01/08/2019 10:11 PM CDT) WBC 5.6 4.0 - 10.8 x10'3/uL 01/08/2019 10:52 PM CDT [facility] RBC 3.06(L) 4.10 - 5.40 x10'6/uL 01/08/2019 10:52 PM CDT [facility] HGB 10.6(L) 12.0 - 16.0 G/DL 01/08/2019 10:52 PM CDT [facility] HCT 30.3(L) 36.0 - 47.0 % 01/08/2019 10:52 PM CDT [facility] MCV 99.0 78.0 - 100.0 FL 01/08/2019 10:52 PM CDT [facility] MCH 34.6(H) 27.0 - 31.0 PG 01/08/2019 10:52 PM CDT [facility] MCHC 35.0 33.0 - 36.0 G/DL 01/08/2019 10:52 PM CDT [facility] RDW 13.2 11.5 - 14.5 % 01/08/2019 10:52 PM CDT [facility] PLT 47(L) 150 - 350 x10'3/uL 01/08/2019 10:52 PM T [facility] MPV 11.9(H) 7.4 - 10.4 FL 01/08/2019 10:52 PM T [facility] ABS. NEUTROPHILS TOTAL 3.49 1.60 - 8.30 x10'3/uL 01/08/2019 10:52 PM CDT [facility] ABS. LYMPHOCYTES 1.29 0.80 - 4.70 x10'3/uL 01/08/2019 10:52 PM CDT [facility] ABS. MONOCYTES 0.46 0.00 - 1.50 x10'3/uL 01/08/2019 10:52 PM T [facility] ABS. EOSINOPHILS 0.28 0.00 - 0.40 x10'3/uL 01/08/2019 10:52 PM CDT [facility] ABS. BASOPHILS 0.02 0.00 - 0.20 x10'3/uL 01/08/2019 10:52 PM T [facility] ABS. IMMATURE GRANULOCYTES 0.07(H) 0.00 - 0.03 x10'3/uL 01/08/2019 10:52 PM [facility] ABS. NUCLEATED RBC'S 0.00 0.0 x10'3/uL 01/08/2019 10:52 PM [facility] 01/08/2019 10:1 1 PM CDT Bailee Merchant MD LABORATORY Final Resul t Performing Organization Address [facility]/ZIP Co de Phone Number [facility] [address] [place] [address], [phone] * LIPASE (01/08/2019 10:10 PM CDT) LIPASE 126 73 - 393 UNITS/L 01/08/2019 11:06 PM CDT [facility] 01/08/2019 10:1 0 PM CDT Bailee Merchant MD LABORATORY Final Resul t Performing Organization Address [facility] de Phone Number [facility] [address] [place] [address], [phone] * (ABNORMAL) COMPREHENSIVE METABOLIC PANEL (01/08/2019 10:10 PM CDT) SODIUM S/P/B 142 136 - 145 MMOL/L 01/08/2019 11:06 PM CDT [facility] POTASSIUM S/P/B 4.0 3.5 - 5.1 MMOL/L 01/08/2019 11:06 PM CDT [facility] CHLORIDE S/P/B 119(H) 98 - 107 MMOL/L 01/08/2019 11:06 PM CDT [facility] CO2 15.1(L) 21.0 - 32.0 MMOL/L 01/08/2019 11:06 PM CDT [facility] GLUCOSE 90 74 - 106 MG/DL 01/08/2019 11:06 PM CDT [facility] BUN 39(H) 7 - 18 MG/DL 01/08/2019 11:06 PM CDT [facility] CREATININE S/P/B 2.61(H) 0.55 - 1.02 MG/DL 01/08/2019 11:06 PM [facility] CALCIUM S/P/B 7.7(L) 8.5 - 10.1 MG/DL 01/08/2019 11:06 PM [facility] BILIRUBIN TOTAL S/P/B 1.0 0.2 - 1.0 MG/DL 01/08/2019 11:06 PM [facility] ALKALINE PHOSPHATASE S/P/B 225(H) 37 - 98 U/L 01/08/2019 11:06 PM [facility] AST 35 15 - 37 U/L 01/08/2019 11:06 PM [facility] ALT 34 13 - 56 U/L 01/08/2019 11:06 PM [facility] TOTAL PROTEIN S/P/B 6.4 6.4 - 8.2 G/DL 01/08/2019 11:06 PM [facility] ALBUMIN S/P/B 3.1(L) 3.4 - 5.0 G/DL 01/08/2019 11:06 PM [facility] ANION GAP 7.9 5.0 - 15.0 MMOL/L 01/08/2019 11:06 PM [facility] Comment:REFERENCE RANGE NOT ESTABLISHED OSMOLALITY (CALC) 303 MOSM/KG 01/08/2019 11:06 PM [facility] Comment:REFERENCE RANGE NOT ESTABLISHED EGFR NON-AFR. AMER. 23(L) >90 ML/MIN/1 .73 M2 01/08/2019 11:06 PM [facility] EGFR AFR. AMER. 26(L) >90 ML/MIN/1 .73 M2 01/08/2019 11:06 PM [facility] GFR NOTES THE ESTIMATED GFR IS CALCULATED USING THE 2009 CKD-EPI EQUATION. THE FOLLOWING CATEGORIES FOR GRADING RENAL FUNCTION ARE RECOMMENDED BY THE INTERNATIONAL SOCIETY OF NEPHROLOGY (KDIGO 2012 CLINICAL PRACTICE GUIDELINE). 01/08/2019 11:06 PM [facility] Comment: G1,NORMAL OR HIGH: >89 ml/min/1.73 m2 G2,MILDLY DECREASED: 60-89 ml/min/1.73 m2 G3A,MILDLY TO MODERATELY DECREASED: 45-59 ml/min/1.73 m2 G3B,MODERATELY TO SEVERELY DECREASED: 30-44 ml/min/1.73 m2 G4,SEVERELY DECREASED: 15-29 ml/min/1.73 m2 G5,KIDNEY FAILURE: <15 ml/min/1.73 m2 01/08/2019 10:1 0 PM CDT Bailee Merchant MD LABORATORY Final Resul t Performing Organization Address [facility] Co de Phone Number [facility] [address] [place] [address], [place] [phone] * TEST URINE (01/08/2019 9:35 PM CDT) PREG TEST NEGATIVE 01/08/2019 9:59 PM CDT [facility] URINE SPECIMEN FROM URETHRA / Unknown 01/08/2019 9:35 PM CDT Bailee Merchant MD URINE ORDERABLES Final Resu lt Performing Organization Address [facility] Co de Phone Number [facility] [address] [place] [address], [place] [phone] * CULTURE URINE (01/08/2019 9:35 PM CDT) SPEC DESCRIPTION URINE CLEAN CATCH 01/08/2019 9:35 PM CDT [facility] SPECIAL REQUESTS NO SPECIAL REQUEST 01/08/2019 9:35 PM CDT [facility] CULTURE RESULT NO GROWTH (< OR = 1,000 CFU/ML) 01/10/2019 2:41 AM CDT [facility] URINE SPECIMEN OBTAINED BY CLEAN CATCH PROCEDURE / Unknown 01/08/2019 9:35 PM CDT 01/08/2019 11:24 PM CDT us Bailee Merchant MD MICROBIOLOGY - GENERAL [place] Final Result [facility] [address] [place] [address], [phone] * URINALYSIS (01/08/2019 9:35 PM CDT) COLOR (U) LIGHT YELLOW 01/08/2019 9:56 PM CDT [facility] TRANSPARENCY CLEAR 01/08/2019 9:56 PM CDT [facility] SPECIFIC GRAVITY (U) 1.009 1.002 - 1.035 01/08/2019 9:56 PM CDT [facility] U PH 6.0 5 - 8 01/08/2019 9:56 PM CDT [facility] PROTEIN (U) NEGATIVE NEGATIVE 01/08/2019 9:56 PM CDT [facility] URINE GLUCOSE NEGATIVE NEGATIVE MG/DL 01/08/2019 9:56 PM CDT [facility] KETONES MG/DL (U) NEGATIVE NEGATIVE 01/08/2019 9:56 PM CDT [facility] BILIRUBIN (U) NEGATIVE NEGATIVE 01/08/2019 9:56 PM CDT [facility] BLOOD (U) NEGATIVE NEGATIVE 01/08/2019 9:56 PM CDT [facility] NITRITES NEGATIVE NEGATIVE 01/08/2019 9:56 PM CDT [facility] UROBILINOGEN NORMAL 0 - 1 EU/DL 01/08/2019 9:56 PM CDT [facility] LEUKOCYTES (U) NEGATIVE NEGATIVE 01/08/2019 9:56 PM CDT [facility] RBC/HPF <1 0 - 3 /HPF 01/08/2019 9:56 PM CDT [facility] WBC/HPF NONE 0 - 6 /HPF 01/08/2019 9:56 PM CDT [facility] BACTERIA (U) NONE /HPF 01/08/2019 9:56 PM CDT [facility] SQUAMOUS EPITHELIALS 3 01/08/2019 9:56 PM CDT [facility] URINE SPECIMEN OBTAINED BY CLEAN CATCH PROCEDURE / Unknown 01/08/2019 9:35 PM CDT Bailee Merchant MD URINE ORDERABLES Final Resu lt [facility] [address] [place] [address], [phone] documented in this encounter Visit Diagnoses Diagnosis [...] 10 minutes through a running IV line. 2333 (Given - Provider: Garfield Shoemaker RN) documented in this encounter Care Teams Inspector Aluminum Boat Relationship Specialty Start Date End Date Hermes Ramirez III, MD [address] [place] [address] PCP - General FAMILY PRACTICE 06/20/17 documented as of this encounter
--- OUTSIDE RECORDS SUMMARY | 2024-03-20 16:39 | XMS_ITS | Encounter Summary ---
Author Organization [facility] Address [address] [place] [address]. [place], [place] [address] [place] [address] Care Team Providers Care Client Operations Manager Name Role Phone Ashley ZUNIGA MD, Hermes Perez Primary Care Provid er Encounter Details Date Type Department Care Team (Latest Contact Info) Description 08/15/2017 Abstract [facility] , Lazara Lange MD Social History Tobacco Use Types Packs/Day Years Used Date Smoking Tobacco: Every Day Cigarettes 0.5 15 Alcohol Use Standard Drinks/Week Comments No 0 (1 standard drink = 0.6 oz pur e alcohol) Comments No Sex and Gender Information Value Date Recorded Sex Assigned at Not on file 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 Has seen in [place] in the past. Recent Hospitalizatiion for Pancreatitis [...] Gerard JENNI; pt agreeable. [facility] Luz Clay Electronically signed by: [...] and not on the left. IMPRESSION: TV CHANNEL LIP WETTER sono for pain: normal uterus with thin endo stripe= 2.2 mm; normal ovaries; RT ovary sits high, only visualized transabdominally; no free fluid; LG. Luz Clay Electronically signed by: Marge Clay Date: 08/23/2017 11:58 documented in this encounter Miscellaneous Notes * Letter - Luz Clay APRN - 08/15/2017 12:00 AM CDT [facility] [address] [place] [address], [place] [address] Elsa Browne [address] [place] [address] To whom it may concern, Elsa was seen in the office today, August 15, 2017 for an appointment. Thank you. Luz Clay [facility] documented in this encounter Plan of Treatment Not on file documented as of this encounter Visit Diagnoses Not on filedocumented in this encounter Care Teams Client Operations Manager Relationship Specialty Start Date End Date Hermes Ramirez III, MD [address] [address] PCP - General FAMILY PRACTICE 06/20/17 documented as of this encounter
--- OUTSIDE RECORDS SUMMARY | 2024-03-20 16:39 | XMS_ITS | Encounter Summary ---
Author Organization [facility] Address [address] [place] [address]. [place] [address] [place] [address] Care Team Providers Care Fitter Mechanic Name Role Phone Ashley ZUNIGA MD, Hermes Perez Primary Care Provid er Encounter Details Date Type Department Care Team (Late st Contact Info) Description 04/29/2018 Abstract [facility] [address] [facility] [place] [address] Zane Marie, DO [address] [place] [address] Social History Tobacco Use Types Packs/Day Years Used Date Smoking Tobacco: Every Day Cigarettes 0.5 15 Smokeless Tobacco: Never Alcohol Use Standard Drinks/Week Comments No 0 (1 standard drink = 0.6 oz pur e alcohol) Comments No Sex and Gender Information Value Date Recorded Sex Assigned at Not on file 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 [address] [place] [address] PCP - General FAMILY PRACTICE 06/20/17 documented as of this encounter
--- OUTSIDE RECORDS SUMMARY | 2024-03-20 16:39 | XMS_ITS | Encounter Summary ---
Author Organization [facility] Address [address] [place] [address]. [place] [address] [place] [address] Care Team Providers Care Golf Superintendent Name Role Phone Ashley ZUNIGA MD, Hermes Perez Primary Care Provid er Encounter Details Date Type Department Care Team (Late st Contact Info) Description 05/23/2018 Abstract [place] [address] [facility] [place] [place] [address] Ziyad Hu MD [address] [place] [address] [id number] Social History Tobacco Use Types Packs/Day Years Used Date Smoking Tobacco: Every Day Cigarettes 0.5 15 Smokeless Tobacco: Never Alcohol Use Standard Drinks/Week Comments No 0 (1 standard drink = 0.6 oz pur e alcohol) Comments No Sex and Gender Information Value Date Recorded Sex Assigned at Not on file 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
--- OUTSIDE RECORDS SUMMARY | 2024-03-20 16:39 | XMS_ITS | Encounter Summary ---
Author Organization [facility] Address [address] [place] [address]. [place], [place] [address] [place] [address] Care Team Providers Care Health Unit Coordinator Name Role Phone Ashley ZUNIGA MD, Hermes Perez Primary Care Provid er Encounter Details Date Type Department Care Team (Latest Contact Info) Description 12/14/2017 Abstract [facility] , Lazara Lange MD Social History Tobacco Use Types Packs/Day Years Used Date Smoking Tobacco: Every Day Cigarettes 0.5 15 Smokeless Tobacco: Never Alcohol Use Standard Drinks/Week Comments No 0 (1 standard drink = 0.6 oz pur e alcohol) Comments No Sex and Gender Information Value Date Recorded Sex Assigned at Not on file Legal Sex Female 9:15 PM PLATE PRINTER Gender Identity Not on file Sexual [...] Tracy wasnotified. Signatures Electronically signed by : Nteta Saab, ; Dec 14 2017 4:11PM PLATE PRINTER (Author) documented in this encounter Plan of Treatment Not on file documented as of this encounter Visit Diagnoses Not on filedocumented in this encounter Care Teams Health Unit Coordinator Relationship Specialty Start Date End Date Hermes Ramirez III, MD [address] [address] PCP - General FAMILY PRACTICE 06/20/17 documented as of this encounter
--- OUTSIDE RECORDS SUMMARY | 2024-03-20 16:39 | XMS_ITS | Encounter Summary ---
Author Organization [facility] Address [address] [place] [address]. [place], [place] [address] [place] [address] Care Team Providers Care Associate Director Of Sales Name Role Phone Ashley ZUNIGA MD, Hermes Perez Primary Care Provid er Encounter Details Date Type Department Care Team (Latest Contact Info) Description 05/14/2018 Abstract [facility] , Generic ConversionMD Social History Tobacco Use Types Packs/Day Years Used Date Smoking Tobacco: Every Day Cigarettes 0.5 15 Smokeless Tobacco: Never Alcohol Use Standard Drinks/Week Comments No 0 (1 standard drink = 0.6 oz pur e alcohol) Comments No Sex and Gender Information Value Date Recorded Sex Assigned at Not on file Legal Sex Female 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 Crook in [place] on 05/09/18. They were wanting to place [...] Netta Saab, ; May 14 2018 1:52PM ENROBING MACHINE FEEDER (Author) documented in this encounter Plan of Treatment Not on file documented as of this encounter Visit Diagnoses Not on filedocumented in this encounter Care Teams Associate Director Of Sales Relationship Specialty Start Date End Date Hermes Ramirez III, MD [address] [facility] [address] [place] [address] PCP - General FAMILY PRACTICE 06/20/17 documented as of this encounter
--- OUTSIDE RECORDS SUMMARY | 2024-03-20 16:39 | XMS_ITS | Encounter Summary ---
Author Organization [facility] Address [address] [place] [address]. [place] [address] [place] [address] Care Team Providers Care Metal Stud Framer Name Role Phone Ashley ZUNIGA MD, Hermes Perez Primary Care Provid er Encounter Details Date Type Department Care Team (Late st Contact Info) Description 04/22/2018 Abstract [place] [facility] [address] [place] [address] Zane Marie, DO [address] [place] [address] Social History Tobacco Use Types Packs/Day Years Used Date Smoking Tobacco: Every Day Cigarettes 0.5 15 Smokeless Tobacco: Never Alcohol Use Standard Drinks/Week Comments No 0 (1 standard drink = 0.6 oz pur e alcohol) Comments No Sex and Gender Information Value Date Recorded Sex Assigned at Not on file 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 [address] [place] [address] PCP - General FAMILY PRACTICE 06/20/17 documented as of this encounter
--- OUTSIDE RECORDS SUMMARY | 2024-03-20 16:39 | XMS_ITS | Encounter Summary ---
Author Organization [facility] Address [address] [place] [address]. [place] [address] [place] [address] Care Team Providers Care Patch Finisher Name Role Phone Ashley ZUNIGA MD, Hermes Perez Primary Care Provid er Encounter Details Date Type Department Care Team (Late st Contact Info) Description 12/08/2017 Abstract [facility] [address] [facility] 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 [address] [place] [address] PCP - General FAMILY PRACTICE 06/20/17 documented as of this encounter
--- OUTSIDE RECORDS SUMMARY | 2024-03-20 16:39 | XMS_ITS | Encounter Summary ---
Author Organization [facility] Address [address] [place] [address]. 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 Has seen in [place] in the past. Recent Hospitalizatiion for Pancreatitis [...] on filedocumented in this encounter Care Teams Earth Sciences Professor Relationship Specialty Start Date End Date Hermes Ramirez III, MD [address] [facility] [address] [place] [address] PCP - General FAMILY PRACTICE 06/20/17 documented as of this encounter
--- OUTSIDE RECORDS SUMMARY | 2024-03-20 16:39 | XMS_ITS | Encounter Summary ---
Author Organization [facility] Address [address] [place] [address]. [place], [place] [address] [place] [address] Care Team Providers Care Wafer Polisher Name Role Phone Ashley ZUNIGA MD, Hermes Perez Primary Care Provid er Reason for Visit * Reason Comments Headache Encounter Details Date Type Department Care Team (Late st Contact Info) Description 12/27/2017 1:12 PM CDT - 12/27/2017 1:54 PM CDT [facility] [address] [place] [address] Carmelita Sharma, EXPEDITIONARY FIGHTING VEHICLE CREWMAN [address] 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 * HEADACHE, ADULT (CHINESE) documented in this encounter Medications at Time [...] RN) documented in this encounter Care Teams Wafer Polisher Relationship Specialty Start Date End Date Hermes Ramirez III, MD [address] [address] PCP - General FAMILY PRACTICE 06/20/17 documented as of this encounter
--- OUTSIDE RECORDS SUMMARY | 2024-03-20 16:39 | XMS_ITS | Encounter Summary ---
Author Organization [facility] Address [address] [place] [address]. [place], [place] [id number] [place] [address] Care Team Providers Care Medical Staff Specialist Name Role Phone Ashley ZUNIGA MD, Hermes Perez Primary Care Provid er Encounter Details Date Type Department Care Team (Latest Contact Info) Description 10/23/2017 Abstract [facility] [...] on file Legal Sex Female 9:15 PM PERSONNEL ADVISER Gender Identity Not on file Sexual Orientation [...] not on the left. IMPRESSION: Limited [facility] sono for RLQ pain: normal uterus with [...] VIN3 and IFEANYI 3. Has seen in [place] in the past. Recent Hospitalizatiion for Pancreatitis [...] never able to reschedule her appt with [facility] due to her school schedule; however, she will be done with classes in 10 days and then has clinicals, which she says will be more flexible. She would still like to pursue seeing the doctor at [place]; called regarding her appt, and they need [...] on filedocumented in this encounter Care Teams Medical Staff Specialist Relationship Specialty Start Date End Date Hermes Ramirez III, MD [address] [facility] 105 [place] [address] PCP - General FAMILY PRACTICE 06/20/17 documented as of this encounter
--- OUTSIDE RECORDS SUMMARY | 2024-03-20 16:39 | XMS_ITS | Encounter Summary ---
Author Organization [facility] Address [address] [place] [address]. [place], [place] [address] [place] [address] Care Team Providers Care Nutritional Services Director Name Role Phone Ashley ZUNIGA MD, Hermes Perez Primary Care Provid er Reason for Visit * Reason Comments Abdominal Pain Headache Encounter Details Date Type Department Care Team (Late st Contact Info) Description 10/29/2018 4:09 PM CDT - 10/29/2018 6:15 PM CDT [facility] [address] [place] [address] [place] [address] Ziyad Hu MD [address] [place] [address] Abdominal Pain; Headache Discharge Disposition: Home or [...] on file Legal Sex Female 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 * Peptic Ulcers (Nigerian) documented in this encounter Medications at Time [...] file Gets together: Not on file Attends uatsdin service: Not on file Active member of [...] 30 tablet, Refills: 0 Class: Eprescribe Pharmacy: [facility]/pharmacy #[id number] (Ph #: [phone]) Hermes Ramirez III, MD [address] [facility] [address] [place] [phone] In 2 days If symptoms worsen I [...] Hermes Ramirez III, MD [address] [address] In 2 days If symptoms worsen New [...] RN) documented in this encounter Care Teams Nutritional Services Director Relationship Specialty Start Date End Date Hermes Ramirez III, MD [address] [address] PCP - General FAMILY PRACTICE 06/20/17 documented as of this encounter
--- OUTSIDE RECORDS SUMMARY | 2024-03-20 16:39 | XMS_ITS | Encounter Summary ---
Author Organization [facility] Address [address] [place] [address]. [place], [place] [address] [place] [address] Care Team Providers Care Integrative Medicine Physician Name Role Phone Ashley ZUNIGA MD, Hermes Perez Primary Care Provid er Reason for Visit * Reason Comments Headache Encounter Details Date Type Department Care Team (Late st Contact Info) Description 08/17/2017 4:52 PM CDT - 08/17/2017 5:54 PM CDT Emergency [facility] [address] [facility] [place] [address] Mona Galindo, ORDER RUNNER [address] [place] [address] Headache Discharge Disposition: Home or Self Care [...] on file Legal Sex Female 9:15 PM PURLER Gender Identity Not on file Sexual Orientation [...] Written by the doctors and editors at [facility] What are migraine headaches???--??Migraine headaches or migraines [...] mild migraines, your doctor might suggest an kvwm-[id number]-phsvjfm medicine such as acetaminophen (sample brand name: [...] process is complete. This topic retrieved from [employer] on: Mar 23, 2017. Topic 247047 Version 1.0 Release: 25.6.2-122 - C26.3 ?2018??[employer]. and/or its affiliates.??All rights reserved. Consumer Information [...] that is right for you.The use of [employer] content is governed by the [employer] Terms of Use. ??2018 [employer]. All rights reserved. Copyright ?2018??[employer] and/or its affiliates.??All rights reserved. documented in [...] Young) documented in this encounter Care Teams Integrative Medicine Physician Relationship Specialty Start Date End Date Hermes Ramirez III, MD [address] [facility] 105 [place] [address] PCP - General FAMILY PRACTICE 06/20/17 documented as of this encounter
--- OUTSIDE RECORDS SUMMARY | 2024-03-20 16:40 | XMS_ITS | Encounter Summary ---
Author Organization [facility] Address [address] [place] [address]. [place], [place] [address] [place] [address] Care Team Providers Care Vice President Of Compliance Name Role Phone Ashley ZUNIGA MD, Sherry Perez Primary Care Provid er Reason for Referral * Imaging (Emergency) - Closed Specialty Diagnoses / Procedures Referred By Contac t Referred To Contact Procedures CT ABD+PEL WO CON CT ABD+PEL W CON Megan Brenner MD Referral ID Status Reason Start Date Expiration Date Visits Re quested Visits Authorized [id number] Closed 06/20/2017 07/20/2018 1 1 Reason for Visit * Reason Comments Abdominal Pain * Auth/Cert Specialty Diagnoses / Procedures Referred By Contac t Referred To Contact Diagnoses Abdominal pain Rectus sheath hematoma Rectus sheath hematoma Rectus sheath hematoma, initial encounter Procedures GENERAL Referral ID Status Reason Start Date Expiration Date Visits Re quested Visits Authorized [id number] 1 1 Encounter Details Date Type Department Care Team (Latest Contact Info) Description 06/20/2017 7:20 PM CDT - 06/21/2017 6:05 PM CDT Hospital Encounter [facility] [address] [place], [place] [address] Licha Costa MD [address] [place], [place] [id number] Abdominal Pain Discharge Disposition: Home or Self Care (Routine Discharge) Social History Tobacco Use Types Packs/Day Years Used Date Smoking Tobacco: Every Day Cigarettes 0.5 15 Alcohol Use Standard Drinks/Week Comments No 0 (1 standard drink = 0.6 oz pur e alcohol) Comments Unknown Sex and Gender Information Value Date Recorded Sex Assigned at Not on file Legal Sex Female 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 Hgb stable, pain controlled, stable for discharge. Disposition: Final discharge disposition not confirmed Provisions for Follow Up Care: See discharge summary for recommendations Principal Diagnoses: Rectus sheath hematoma, initial encounter Signed: SEKOU GRIMES MD 06/21/2017 5:04 PM * Sekou Grimes MD - 06/21/2017 5:00 PM CDT Physician Discharge Summary Patient ID: Elsa Browne [id number] 36-year-old 1980 Admit date: 06/20/2017 Expected Discharge [...] Elsa Browne Date of : 1980 Room/Bed: [facility] Date: 06/21/2017 Time: 9:33 AM Diagnoses: Principal [...] dilutional. IVFs stopped. -pain medication changed to [place] + Morphine -hgb pending for 1100. If stable and pain controlled -> will discharge today Discussed with patient who has had a chance to ask questions and have them answered. The patient has voiced understanding and agrees to the current plan of management. Sekou Grimes MD, FACS [facility] Update: -pain controlled with norco. Tolerating [...] ABD+PEL WO CON Final Result by User, [email or web address] (06/20 2200) EXAMINATION: CT Chest, Abdomen, and [...] - 16.0 G/DL 06/21/2017 10:58 AM CDT [facility] HCT 27.1(L) 36.0 - 47.0 % 06/21/2017 10:58 AM CDT [facility] 06/21/2017 10:4 8 AM CDT Sekou Grimes MD LABORATORY Final Result [facility] [address] [place] [address], [id number] * (ABNORMAL) CBC W/DIFF AUTOMATED (06/21/2017 4:49 AM CDT) WBC 3.6(L) 4.0 - 10.8 x10'3/uL 06/21/2017 5:20 AM CDT [facility] RBC 2.64(L) 4.10 - 5.40 x10'6/uL 06/21/2017 5:20 AM CDT [facility] HGB 9.0(L) 12.0 - 16.0 G/DL 06/21/2017 5:20 AM CDT [facility] HCT 26.0(L) 36.0 - 47.0 % 06/21/2017 5:20 AM CDT [facility] MCV 98.5 78.0 - 100.0 FL 06/21/2017 5:20 AM CDT [facility] MCH 34.1(H) 27.0 - 31.0 PG 06/21/2017 5:20 AM CDT [facility] MCHC 34.6 33.0 - 36.0 G/DL 06/21/2017 5:20 AM CDT [facility] RDW 14.1 11.5 - 14.5 % 06/21/2017 5:20 AM CDT [facility] PLT 49(L) 150 - 350 x10'3/uL 06/21/2017 7:16 AM CDT [facility] MPV 11.9(H) 7.4 - 10.4 FL 06/21/2017 7:16 AM CDT [facility] ABS. NEUTROPHILS TOTAL 2.02 1.60 - 8.30 x10'3/uL 06/21/2017 5:20 AM CDT [facility] ABS. LYMPHOCYTES 1.02 0.80 - 4.70 x10'3/uL 06/21/2017 5:20 AM CDT [facility] ABS. MONOCYTES 0.31 0.00 - 1.50 x10'3/uL 06/21/2017 5:20 AM CDT [facility] ABS. EOSINOPHILS 0.20 0.00 - 0.40 x10'3/uL 06/21/2017 5:20 AM CDT [facility] ABS. BASOPHILS 0.01 0.00 - 0.20 x10'3/uL 06/21/2017 5:20 AM CDT [facility] ABS. IMMATURE GRANULOCYTES 0.01 0.00 - 0.03 x10'3/uL 06/21/2017 5:20 AM CDT [facility] ABS. NUCLEATED RBC'S 0.00 0.0 x10'3/uL 06/21/2017 5:20 AM CDT [facility] 06/21/2017 4:49 AM CDT Licha Costa MD LABORATORY Final Result [facility] [address] [place] [address], [id number] * (ABNORMAL) BASIC METABOLIC PANEL (06/21/2017 4:49 AM CDT) SODIUM S/P/B 141 135 - 147 MMOL/L 06/21/2017 5:24 AM CDT [facility] POTASSIUM S/P/B 4.3 3.5 - 5.0 MMOL/L 06/21/2017 5:24 AM CDT [facility] CHLORIDE S/P/B 116(H) 98 - 107 MMOL/L 06/21/2017 5:24 AM CDT [facility] CO2 21.2(L) 22 - 29 MMOL/L 06/21/2017 5:24 AM CDT [facility] GLUCOSE 93 70 - 109 MG/DL 06/21/2017 5:24 AM CDT [facility] BUN 19 7 - 19 MG/DL 06/21/2017 5:24 AM CDT [facility] CREATININE S/P/B 1.59(H) 0.60 - 1.10 MG/DL 06/21/2017 5:24 AM CDT [facility] CALCIUM S/P/B 8.0(L) 8.4 - 10.2 MG/DL 06/21/2017 5:24 AM CDT [facility] EGFR NON-AFR. AMER. 37(L) >60 ML/MIN/1.7 3 M2 06/21/2017 5:24 AM CDT [facility] EGFR AFR. AMER. 45(L) >60 ML/MIN/1.7 3 M2 06/21/2017 5:24 AM CDT [facility] ANION GAP 3.8 MMOL/L 06/21/2017 5:24 AM CDT [facility] OSMOLALITY (CALC) 283 MOSM/KG 06/21/2017 5:24 AM CDT [facility] 06/21/2017 4:49 AM CDT us Licha Costa MD LABORATORY Final Result Performing Organization Address [facility] Co de Phone Number [facility] [address] [place] [address], [phone] * (ABNORMAL) HEMOGLOBIN AND HEMATOCRIT (06/21/2017 12:49 AM CDT) HGB 9.7(L) 12.0 - 16.0 G/DL 06/21/2017 1:40 AM CDT [facility] HCT 28.5(L) 36.0 - 47.0 % 06/21/2017 1:40 AM CDT [facility] 06/21/2017 12:4 9 AM CDT us Licha Costa MD LABORATORY Final Result Performing Organization Address [facility] Co de Phone Number [facility] [address] [place] [address], [place] [phone] * PARTIAL THROMBOPLASTIN TIME,PTT (06/20/2017 9:53 PM CDT) PTT 30.6 22.0 - 35.0 SEC 06/20/2017 10:29 PM CDT [facility] 06/20/2017 9:53 PM CDT Megan Brenner MD LABORATORY Final Result Performing Organization Address City/[facility]/ZIP Co de Phone Number [facility] [address] [place] [address], [id number] * PROTIME/INR, VENOUS (06/20/2017 9:53 PM CDT) PROTIME 14.3 11.6 - 14.3 SEC 06/20/2017 10:28 PM CDT [facility] INR 1.1 0.9 - 1.1 06/20/2017 10:28 PM CDT [facility] 06/20/2017 9:53 PM CDT Megan Brenner MD LABORATORY Final Result Performing Organization Address [facility] Co de Phone Number [facility] [address] [place] [address], [id number] * CT ABD+PEL WO CON (06/20/2017 8:57 [...] - 2.6 MG/DL 06/20/2017 9:07 PM CDT [facility] 06/20/2017 8:07 PM CDT us Megan Brenner MD LABORATORY Final Result [facility] [address] [place] [address], [place] [phone] [id number] * LACTIC ACID (06/20/2017 8:07 PM CDT) [facility] LACTIC ACID VENOUS 0.8 0.5 - 2.0 MMOL/L 06/20/2017 9:03 PM CDT [facility] 06/20/2017 8:07 PM CDT Megan Brenner MD LABORATORY Final Result [facility] [address] [place] [address], [id number] * (ABNORMAL) COMPREHENSIVE METABOLIC PANEL (06/20/2017 8:07 PM CDT) [facility] SODIUM S/P/B 143 135 - 147 MMOL/L 06/20/2017 9:07 PM CDT [facility] POTASSIUM S/P/B 4.0 3.5 - 5.0 MMOL/L 06/20/2017 9:07 PM CDT [facility] CHLORIDE S/P/B 114(H) 98 - 107 MMOL/L 06/20/2017 9:07 PM CDT [facility] CO2 21.0(L) 22 - 29 MMOL/L 06/20/2017 9:07 PM CDT [facility] GLUCOSE 93 70 - 109 MG/DL 06/20/2017 9:07 PM CDT [facility] BUN 21(H) 7 - 19 MG/DL 06/20/2017 9:07 PM CDT [facility] CREATININE S/P/B 1.72(H) 0.60 - 1.10 MG/DL 06/20/2017 9:07 PM CDT [facility] CALCIUM S/P/B 8.5 8.4 - 10.2 MG/DL 06/20/2017 9:07 PM CDT [facility] BILIRUBIN TOTAL S/P/B 1.3(H) 0.2 - 1.2 MG/DL 06/20/2017 9:07 PM CDT [facility] ALKALINE PHOSPHATASE S/P/B 268(H) 37 - 98 U/L 06/20/2017 9:07 PM CDT [facility] AST 61(H) 5 - 35 U/L 06/20/2017 9:07 PM CDT [facility] ALT 29 0 - 55 U/L 06/20/2017 9:07 PM CDT [facility] TOTAL PROTEIN S/P/B 5.8(L) 6.0 - 8.3 G/DL 06/20/2017 9:07 PM CDT [facility] ALBUMIN S/P/B 3.2(L) 3.4 - 4.9 G/DL 06/20/2017 9:07 PM CDT [facility] ANION GAP 8.0 MMOL/L 06/20/2017 9:07 PM CDT [facility] OSMOLALITY (CALC) 288 MOSM/KG 06/20/2017 9:07 PM CDT [facility] EGFR NON-AFR. AMER. 34(L) >60 ML/MIN/1.7 3 M2 06/20/2017 9:07 PM CDT [facility] EGFR AFR. AMER. 41(L) >60 ML/MIN/1.7 3 M2 06/20/2017 9:07 PM CDT [facility] 06/20/2017 8:07 PM CDT us Megan Brenner MD LABORATORY Final Result [facility] [address] [place] [address], [id number] * (ABNORMAL) CBC W/DIFF AUTOMATED (06/20/2017 8:07 PM CDT) WBC 4.5 4.0 - 10.8 x10'3/uL 06/20/2017 8:57 PM CDT [facility] RBC 2.93(L) 4.10 - 5.40 x10'6/uL 06/20/2017 8:57 PM CDT [facility] HGB 9.8(L) 12.0 - 16.0 G/DL 06/20/2017 8:57 PM CDT [facility] HCT 28.8(L) 36.0 - 47.0 % 06/20/2017 8:57 PM CDT [facility] MCV 98.3 78.0 - 100.0 FL 06/20/2017 8:57 PM CDT [facility] MCH 33.4(H) 27.0 - 31.0 PG 06/20/2017 8:57 PM CDT [facility] MCHC 34.0 33.0 - 36.0 G/DL 06/20/2017 8:57 PM CDT [facility] RDW 13.9 11.5 - 14.5 % 06/20/2017 8:57 PM CDT [facility] PLT 61(L) 150 - 350 x10'3/uL 06/20/2017 8:57 PM CDT [facility] MPV 11.4(H) 7.4 - 10.4 FL 06/20/2017 8:57 PM CDT [facility] ABS. NEUTROPHILS TOTAL 3.07 1.60 - 8.30 x10'3/uL 06/20/2017 8:57 PM CDT [facility] ABS. LYMPHOCYTES 0.91 0.80 - 4.70 x10'3/uL 06/20/2017 8:57 PM CDT [facility] ABS. MONOCYTES 0.33 0.00 - 1.50 x10'3/uL 06/20/2017 8:57 PM CDT [facility] ABS. EOSINOPHILS 0.12 0.00 - 0.40 x10'3/uL 06/20/2017 8:57 PM CDT [facility] ABS. BASOPHILS 0.01 0.00 - 0.20 x10'3/uL 06/20/2017 8:57 PM CDT [facility] ABS. IMMATURE GRANULOCYTES 0.02 0.00 - 0.03 x10'3/uL 06/20/2017 8:57 PM CDT [facility] ABS. NUCLEATED RBC'S 0.00 0.0 x10'3/uL 06/20/2017 8:57 PM CDT [facility] 06/20/2017 8:07 PM CDT us Megan Brenner MD LABORATORY Final Result [facility] [address] [place] [address], [id number] documented in this encounter Visit Diagnoses Diagnosis [...] at 2010 0337 (Given - Provid er: Dick Thorne RN) documented in this encounter Care Teams Vice President Of Compliance Relationship Specialty Start Date End Date Sherry Ramirez III, MD [address] [facility] [address] [place] [address] PCP - General FAMILY PRACTICE 06/20/17 documented as of this encounter
--- OUTSIDE RECORDS SUMMARY | 2024-03-20 16:40 | XMS_ITS | Encounter Summary ---
Author Organization [facility] Address [address] [place] [address]. [place] [address] [place] [address] Care Team Providers Care Grid Trimmer Name Role Phone Ashley ZUNIGA MD, Hermes Perez Primary Care Provid er Encounter Details Date Type Department Care Team (Late st Contact Info) Description 06/03/2017 Abstract [facility] [address] [place], [place] [id number] , Generic MD Anisa Social History Tobacco Use Types Packs/Day Years Used Date Smoking Tobacco: Never Assessed Comments Unknown Sex and Gender Information Value Date Recorded Sex Assigned at Not on file Legal Sex Female 9:15 PM COMPLEX MANAGER Gender Identity Not on file Sexual Orientation Not on file documented as of this encounter Plan of Treatment Not on file documented as of this encounter Visit Diagnoses Not on filedocumented in this encounter Additional Health Concerns Infection Onset Date Last Indicated Resolved Time COVID-19 Rule Out 03/30/2020 03/30/2020 03/30/2020 9:29 PM COMPLEX MANAGER COVID-19 Rule Out 03/30/2020 03/30/2020 03/31/2020 12:28 PM COMPLEX MANAGER COVID-19 Rule Out 02/16/2024 02/16/2024 02/16/2024 9:16 PM COMPLEX MANAGER Rhinovirus 02/16/2024 02/16/2024 02/26/2024 12:3 2 AM COMPLEX MANAGER documented as of this encounter Care Teams Grid Trimmer Relationship Specialty Start Date End Date Hermes Ramirez III, MD [address] [place] [address] [place] [address] PCP - General FAMILY PRACTICE 06/20/17 documented as of this encounter
--- OUTSIDE RECORDS SUMMARY | 2024-03-20 16:40 | XMS_ITS | Encounter Summary ---
Author Organization [facility] Address [address] [place] [address]. [place] [address] [place] [address] Care Team Providers Care Underground Mining Section Foreman Name Role Phone Ashley ZUNIGA MD, Hermes Primary Care Provid er Encounter Details Date Type Department Care Team (Late st Contact Info) Description 05/30/2017 Orders Only [facility] [address] [place] [address] , Generic ConversionMD Social History Tobacco Use Types Packs/Day Years Used Date Smoking Tobacco: Never Assessed Comments Unknown Sex and Gender Information Value Date Recorded Sex Assigned at Not on file Legal Sex Female 9:15 PM UNDERGROUND MINER Gender Identity Not on file Sexual [...] SPEC DESCRIPTION URINE 05/30/2017 3:25 PM CDT [facility] SPECIAL REQUESTS NO SPECIAL REQUEST 05/30/2017 3:25 PM CDT [facility] CULTURE RESULT NO GROWTH (< OR = 1,000 CFU/ML) 05/31/2017 2:46 AM CDT [facility] URINE SPECIMEN / Unknown 05/30/2017 3:38 PM CDT 05/30/2017 3:46 PM CDT Comment:URINE CLEAN CATCH us Generic Conversion Md MENDOZA MICROBIOLOGY - GENERAL ORDERABLES Final Result [facility] [address] [place] [address], [id number] * (ABNORMAL) URINALYSIS (05/30/2017 3:33 PM CDT) COLOR (U) LIGHT YELLOW 05/30/2017 3:52 PM CDT [facility] TRANSPARENCY CLEAR 05/30/2017 3:52 PM CDT [facility] SPECIFIC GRAVITY (U) 1.011 1.002 - 1.035 05/30/2017 3:52 PM CDT [facility] U PH 6.0 5 - 8 05/30/2017 3:52 PM CDT [facility] PROTEIN (U) NEGATIVE NEGATIVE 05/30/2017 3:52 PM CDT [facility] URINE GLUCOSE NEGATIVE NEGATIVE MG/DL 05/30/2017 3:52 PM CDT [facility] KETONES MG/DL (U) NEGATIVE NEGATIVE 05/30/2017 3:52 PM CDT [facility] BILIRUBIN (U) NEGATIVE NEGATIVE 05/30/2017 3:52 PM CDT [facility] BLOOD (U) SMALL(A) NEGATIVE 05/30/2017 3:52 PM CDT [facility] NITRITES NEGATIVE NEGATIVE 05/30/2017 3:52 PM CDT [facility] UROBILINOGEN NORMAL 0 - 1 EU/DL 05/30/2017 3:52 PM CDT [facility] LEUKOCYTES (U) NEGATIVE NEGATIVE 05/30/2017 3:52 PM CDT [facility] RBC/HPF 1 0 - 3 /HPF 05/30/2017 3:52 PM CDT [facility] WBC/HPF <1 0 - 6 /HPF 05/30/2017 3:52 PM CDT [facility] BACTERIA (U) NONE /HPF 05/30/2017 3:52 PM CDT [facility] SQUAMOUS EPITHELIALS 1 05/30/2017 3:52 PM CDT [facility] URINE SPECIMEN / Unknown 05/30/2017 3:33 PM CDT 05/30/2017 3:45 PM CDT us Generic Conversion Md MENDOZA URINE ORDERABLES Final Result [facility] [address] [place] [address], [id number] documented in this encounter Visit Diagnoses Not on filedocumented in this encounter Care Teams Underground Mining Section Foreman Relationship Specialty Start Date End Date Hermes Ramirez III, MD [address] [address] PCP - General FAMILY PRACTICE 06/20/17 documented as of this encounter
--- OUTSIDE RECORDS SUMMARY | 2024-03-20 16:40 | XMS_ITS | Encounter Summary ---
Author Organization [facility] Address [address] [place] [address]. [place], [place] [address] [place] [address] Care Team Providers Care Remote Sensing Analyst Name Role Phone Ashley ZUNIGA MD, Hermes Perez Primary Care Provid er Encounter Details Date Type Department Care Team (Latest Contact Info) Description 05/31/2017 Abstract [facility] Social History Tobacco Use Types Packs/Day Years Used Date Smoking Tobacco: Never Assessed Comments Unknown Sex and Gender Information Value Date Recorded Sex Assigned at Not on file Legal Sex Female 9:15 PM BAR TACKER Gender Identity Not on file Sexual Orientation Not on file documented as of this encounter Plan of Treatment Not on file documented as of this encounter Visit Diagnoses Not on filedocumented in this encounter Care Teams Remote Sensing Analyst Relationship Specialty Start Date End Date Hermes Ramirez III, MD [address] [facility] [address] [place] [address] PCP - General FAMILY PRACTICE 06/20/17 documented as of this encounter
--- OUTSIDE RECORDS SUMMARY | 2024-03-20 16:40 | XMS_ITS | Encounter Summary ---
Author Organization [facility] Address [address] [place] [address]. [place], [place] [address] [place] [address] Care Team Providers Care Stock Worker And Deliverer Name Role Phone Ashley ZUNIGA MD, Hermes Perez Primary Care Provid er Reason for Visit * Reason Comments Migraine Encounter Details Date Type Department Care Team (Late st Contact Info) Description 07/20/2017 11:08 AM CDT - 07/20/2017 12:30 PM CDT Emergency [facility] Emergency [address] [place] [address] Letha Mitchell, LEWIS [address] [address] Migraine Discharge Disposition: Left Against Medical Advice Social History Tobacco Use Types Packs/Day Years Used Date Smoking Tobacco: Every Day Cigarettes 0.5 15 Alcohol Use Standard Drinks/Week Comments No 0 (1 standard drink = 0.6 oz pur e alcohol) Comments No Sex and Gender Information Value Date Recorded Sex Assigned at Not on file Legal Sex Female 9:15 PM TELEPHONE CLEANER Gender Identity Not on file Sexual Orientation [...] Discharge Instructions * Discharge Instructions* Letha Mitchell, STRATEGIC MARKETING LEADER - 07/20/2017 12:26 PM CDT Images from the original note were not included. Thank you for choosing [facility]. I am glad to care [...] my headaches. Where can I learn more? [employer] Family Physician http://www.aafp.org/afp/topicModules/viewTopicModule.htm?topicModuleId=10 National Headache Foundation http://www.headaches.org/education/Tools_for_Sufferers/Headache_-_Frequently_Ask ed_Questions National [place] of Neurological Disorders and Stroke http://www.ninds.nih.gov/disorders/headache/headache.htm NHS [...] right for you. Copyright Copyright ?? 2018 [employer], [employer]. and its affiliates and/or licensors. All rights [...] right for you. Copyright Copyright ?? 2018 [employer], [employer]. and its affiliates and/or licensors. All rights [...] used to be on Topamax but her button puncher took her off because it was making [...] 07/20/2017 12:31 PM Hermes Ramirez III, MD [facility] [address] [address] Schedule an appointment as soon as possible [...] order) documented in this encounter Care Teams Stock Worker And Deliverer Relationship Specialty Start Date End Date Hermes Ramirez III, MD [address] [place] [address] PCP - General FAMILY PRACTICE 06/20/17 documented as of this encounter
--- OUTSIDE RECORDS SUMMARY | 2024-03-20 16:40 | XMS_ITS | Encounter Summary ---
Author Organization [facility] Address [address] [place] [address]. [place], [place] [address] [place] [address] Care Team Providers Care Point Of Care Technician Name Role Phone Ashley ZUNIGA MD, Hermes Perez Primary Care Provid er Encounter Details Date Type Department Care Team (Latest Contact Info) Description 06/10/2017 Abstract [facility] Medical Group Social History Tobacco Use Types Packs/Day Years Used Date Smoking Tobacco: Never Assessed Comments Unknown Sex and Gender Information Value Date Recorded Sex Assigned at Not on file Legal Sex Female 9:15 PM TIN POURER Gender Identity Not on file Sexual Orientation Not on file documented as of this encounter Plan of Treatment Not on file documented as of this encounter Visit Diagnoses Not on filedocumented in this encounter Care Teams Point Of Care Technician Relationship Specialty Start Date End Date Hermes Ramirez III, MD [address] [facility] [address] [place] [address] PCP - General FAMILY PRACTICE 06/20/17 documented as of this encounter
--- OUTSIDE RECORDS SUMMARY | 2024-03-20 16:40 | XMS_ITS | Encounter Summary ---
Author Organization [facility] Address [address] [place] [address]. [place], [place] [address] [place] [address] Care Team Providers Care Business Risk Analyst Name Role Phone Ashley ZUNIGA MD, Hermes Perez Primary Care Provid er Reason for Visit * Reason Comments Abdominal Pain Headache Encounter Details Date Type Department Care Team (Late st Contact Info) Description 07/19/2017 4:13 PM CDT - 07/19/2017 4:[address] [facility] Emergency [address] [place] [address] Abdominal Pain; Headache Discharge Disposition: Left Against Medical Advice Social History Tobacco Use Types Packs/Day Years Used Date Smoking Tobacco: Every Day Cigarettes 0.5 15 Alcohol Use Standard Drinks/Week Comments No 0 (1 standard drink = 0.6 oz pur e alcohol) Comments No Sex and Gender Information Value Date Recorded Sex Assigned at Not on file Legal Sex Female 9:15 PM CRUDE UNIT OPERATOR Gender Identity Not on file [...] - 78 UNITS/L 07/19/2017 3:46 PM CDT [facility] 07/19/2017 3:15 PM CDT [facility] Final Result [facility] [address] [place] [address], [id number] * (ABNORMAL) COMPREHENSIVE METABOLIC PANEL (07/19/2017 3:15 PM CDT) SODIUM S/P/B 141 135 - 147 MMOL/L 07/19/2017 3:46 PM CDT [facility] POTASSIUM S/P/B 4.2 3.5 - 5.0 MMOL/L 07/19/2017 3:46 PM CDT [facility] Comment:SLIGHT HEMOLYSIS, RE SULT MAY BE AFFECTED. CHLORIDE S/P/B 112(H) 98 - 107 MMOL/L 07/19/2017 3:46 PM CDT [facility] CO2 20.0(L) 22 - 29 MMOL/L 07/19/2017 3:46 PM CDT [facility] GLUCOSE 97 70 - 109 MG/DL 07/19/2017 3:46 PM CDT [facility] BUN 22(H) 7 - 19 MG/DL 07/19/2017 3:46 PM CDT [facility] CREATININE S/P/B 1.83(H) 0.60 - 1.10 MG/DL 07/19/2017 3:46 PM CDT [facility] CALCIUM S/P/B 8.9 8.4 - 10.2 MG/DL 07/19/2017 3:46 PM CDT [facility] BILIRUBIN TOTAL S/P/B 1.1 0.2 - 1.2 MG/DL 07/19/2017 3:46 PM CDT [facility] ALKALINE PHOSPHATASE S/P/B 283(H) 37 - 98 U/L 07/19/2017 3:46 PM CDT [facility] AST 38(H) 5 - 35 U/L 07/19/2017 3:46 PM CDT [facility] ALT 19 0 - 55 U/L 07/19/2017 3:46 PM CDT [facility] TOTAL PROTEIN S/P/B 6.5 6.0 - 8.3 G/DL 07/19/2017 3:46 PM CDT [facility] ALBUMIN S/P/B 3.6 3.4 - 4.9 G/DL 07/19/2017 3:46 PM CDT [facility] ANION GAP 9.0 MMOL/L 07/19/2017 3:46 PM CDT [facility] OSMOLALITY (CALC) 285 MOSM/KG 07/19/2017 3:46 PM CDT [facility] EGFR NON-AFR. AMER. 32(L) >60 ML/MIN/1.7 3 M2 07/19/2017 3:46 PM CDT [facility] EGFR AFR. AMER. 38(L) >60 ML/MIN/1.7 3 M2 07/19/2017 3:46 PM CDT [facility] 07/19/2017 3:15 PM CDT Letha Mitchell [facility] Final Result [facility] [address] [place] [address], [id number] * (ABNORMAL) CBC W/DIFF AUTOMATED (07/19/2017 3:15 PM CDT) WBC 4.5 4.0 - 10.8 x10'3/uL 07/19/2017 3:30 PM CDT [facility] RBC 3.29(L) 4.10 - 5.40 x10'6/uL 07/19/2017 3:30 PM CDT [facility] HGB 11.3(L) 12.0 - 16.0 G/DL 07/19/2017 3:30 PM CDT [facility] HCT 32.2(L) 36.0 - 47.0 % 07/19/2017 3:30 PM CDT [facility] MCV 97.9 78.0 - 100.0 FL 07/19/2017 3:30 PM CDT [facility] MCH 34.3(H) 27.0 - 31.0 PG 07/19/2017 3:30 PM CDT [facility] MCHC 35.1 33.0 - 36.0 G/DL 07/19/2017 3:30 PM CDT [facility] RDW 13.2 11.5 - 14.5 % 07/19/2017 3:30 PM CDT [facility] PLT 53(L) 150 - 350 x10'3/uL 07/19/2017 3:30 PM CDT [facility] MPV 12.3(H) 7.4 - 10.4 FL 07/19/2017 3:30 PM CDT [facility] ABS. NEUTROPHILS TOTAL 2.90 1.60 - 8.30 x10'3/uL 07/19/2017 3:30 PM CDT [facility] ABS. LYMPHOCYTES 0.97 0.80 - 4.70 x10'3/uL 07/19/2017 3:30 PM CDT [facility] ABS. MONOCYTES 0.32 0.00 - 1.50 x10'3/uL 07/19/2017 3:30 PM CDT [facility] ABS. EOSINOPHILS 0.29 0.00 - 0.40 x10'3/uL 07/19/2017 3:30 PM CDT [facility] ABS. BASOPHILS 0.01 0.00 - 0.20 x10'3/uL 07/19/2017 3:30 PM CDT [facility] ABS. IMMATURE GRANULOCYTES 0.03 0.00 - 0.03 x10'3/uL 07/19/2017 3:30 PM CDT [facility] ABS. NUCLEATED RBC'S 0.00 0.0 x10'3/uL 07/19/2017 3:30 PM CDT [facility] 07/19/2017 3:15 PM CDT Letha Mitchell HOME HEALTH NURSE LABORATORY Final Result [facility] [address] [place] [address], [id number] documented in this encounter Visit Diagnoses Not on filedocumented in this encounter Care Teams Business Risk Analyst Relationship Specialty Start Date End Date Hermes Ramirez III, MD [address] [address] PCP - General FAMILY PRACTICE 06/20/17 documented as of this encounter
--- OUTSIDE RECORDS SUMMARY | 2024-03-20 16:40 | XMS_ITS | Encounter Summary ---
Author Organization [facility] Address [address] [place] [address]. [place] [address] [place] [address] Care Team Providers Care Charge Rn Name Role Phone Ashley ZUNIGA MD, Hermes Perez Primary Care Provid er Encounter Details Date Type Department Care Team (Latest Contact Info) Description 08/08/2017 Abstract [facility] Group Murphy Mathew MD [address] [place] [address] Social History Tobacco Use Types Packs/Day Years Used Date Smoking Tobacco: Every Day Cigarettes 0.5 15 Alcohol Use Standard Drinks/Week Comments No 0 (1 standard drink = 0.6 oz pur e alcohol) Comments No Sex and Gender Information Value Date Recorded Sex Assigned at Not on file Legal Sex Female 9:15 PM OBSTETRICAL TECH Gender Identity Not on file Sexual [...] 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 She has been admitted to medical reimbursement manager program in [place]. She reports doing well. She takes Prograf [...] Oral Tablet; TAKE ONE TABLET NEEDED; Therapy: (Recorded:[id number]) to Recorded 2. Cymbalta 20 MG Oral Capsule Delayed Release Particles; TAKE 2 CAPSULES DAILY; Therapy: (Recorded:[id number]) to Recorded 3. PNV Plus Multivitamin 27-1 MG Oral Tablet; TAKE 1 TABLET DAILY; Therapy: (Recorded:08Aug2017) to Recorded 4. Prograf 1 MG Oral Capsule; TAKE 2 CAPSULE Twice daily; Therapy: (Recorded:[id number]) to Recorded 5. Sodium Bicarbonate 650 MG Oral Tablet; TAKE 2 TABLETS BY MOUTH 3 TIMES A DAY DIRECTED; Therapy: [id number] to (Evaluate:12Aug2017) Requested for: 13Feb2017; Last Rx:13Feb2017 [...] Flag Reference Glucose Negative Ketones Negative Specific Hugo 1.015 pH 7.0 Blood Trace-Intact Nitrates Negative [...] follow with hematology. RTC. 6 months. JODIE. Porter Ramirez M.D. Signatures Electronically signed by : Murphy Mathew M.D.; Aug 09 2017 10:52AM OBSTETRICAL TECH (Author) documented in this encounter Plan of [...] on filedocumented in this encounter Care Teams Charge Rn Relationship Specialty Start Date End Date Hermes Ramirez III, MD [address] [facility] [address] [place] [address] PCP - General FAMILY PRACTICE 06/20/17 documented as of this encounter
--- OUTSIDE RECORDS SUMMARY | 2024-03-20 16:40 | XMS_ITS | Encounter Summary ---
Author Organization [facility] Address [address] [place] [address]. [place], [place] [address] [place] [address] Care Team Providers Care Catalyst Operator Gasoline Name Role Phone Ashlye ZUNIGA MD, Hermes Perez Primary Care Provid er Encounter Details Date Type Department Care Team (Latest Contact Info) Description 08/07/2017 Abstract [facility] Medical Group Shimon Wheatley MD Social History Tobacco Use Types Packs/Day Years Used Date Smoking Tobacco: Every Day Cigarettes 0.5 15 Alcohol Use Standard Drinks/Week Comments No 0 (1 standard drink = 0.6 oz pur e alcohol) Comments No Sex and Gender Information Value Date Recorded Sex Assigned at Not on file Legal Sex Female 9:15 PM CODING SPECIALIST HOME HEALTH Gender Identity Not on file Sexual Orientation Not on file documented as of this encounter Plan of Treatment Not on file documented as of this encounter Visit Diagnoses Not on filedocumented in this encounter Care Teams Catalyst Operator Gasoline Relationship Specialty Start Date End Date Hermes Ramirez III, MD [address] [facility] [address] [place] [address] PCP - General FAMILY PRACTICE 06/20/17 documented as of this encounter
--- OUTSIDE RECORDS SUMMARY | 2024-03-20 16:40 | XMS_ITS | Encounter Summary ---
Author Organization [facility] Address [address] [place] [address]. [place], [place] [address] [place] [address] Care Team Providers Care Controls Operator Molded Goods Name Role Phone Unavailable Primary Care Provider Unavailabl e Encounter Details Date Type Department Care Team (Late st Contact Info) Description 05/22/2017 Emergency [facility] Emergency [address] [place] [address] Jade Kitchen MD [address] [place] [address] Social History Tobacco Use Types Packs/Day Years Used Date Smoking Tobacco: Never Assessed Comments Unknown Sex and Gender Information Value Date Recorded Sex Assigned at Not on file Legal Sex Female 9:15 PM TELEPHONE SEX WORKER Gender Identity Not on file Sexual Orientation Not on file documented as of this encounter Plan of Treatment Not on file documented as of this encounter Visit Diagnoses Diagnosis Otitis media of left ear Unspecified otitis media documented in this encounter
--- OUTSIDE RECORDS SUMMARY | 2024-03-20 16:40 | XMS_ITS | Encounter Summary ---
Author Organization [facility] Address [address] [place] [address]. [place] [address] [place] [address] Care Team Providers Care Logistics Tech Name Role Phone Unavailable Primary Care Provider Unavailabl e Encounter Details Date Type Department Care Team (Late st Contact Info) Description 05/30/2017 Emergency [facility] Emergency [address] [place] [address] Danish Menjivar MD [address] [place] [address] Social History Tobacco Use Types Packs/Day Years Used Date Smoking Tobacco: Never Assessed Comments Unknown Sex and Gender Information Value Date Recorded Sex Assigned at Not on file Legal Sex Female 9:15 PM SENIOR AIR DIRECTOR Gender Identity Not on file Sexual Orientation Not on file documented as of this encounter Plan of Treatment Not on file documented as of this encounter Visit Diagnoses Diagnosis Cyst of right ovary Other and unspecified ovarian cyst documented in this encounter
--- OUTSIDE RECORDS SUMMARY | 2024-03-20 16:40 | XMS_ITS | Encounter Summary ---
Author Organization [facility] Address [address] [place] [address]. [place], [place] [address] [place] [address] Care Team Providers Care Certified Meeting Professional Name Role Phone Ashley ZUNIGA MD, Hermes Perez Primary Care Provid er Encounter Details Date Type Department Care Team (Latest Contact Info) Description 06/20/2017 Abstract [facility] Medical Group Social History Tobacco Use Types Packs/Day Years Used Date Smoking Tobacco: Every Day Cigarettes 0.5 15 Alcohol Use Standard Drinks/Week Comments No 0 (1 standard drink = 0.6 oz pur e alcohol) Comments Unknown Sex and Gender Information Value Date Recorded Sex Assigned at Not on file Legal Sex Female 9:15 PM ONLINE MARKETING ANALYST Gender Identity Not on file Sexual Orientation Not on file documented as of this encounter Plan of Treatment Not on file documented as of this encounter Visit Diagnoses Not on filedocumented in this encounter Care Teams Certified Meeting Professional Relationship Specialty Start Date End Date Hermes Ramirez III, MD [address] [facility] [address] [place] [address] PCP - General FAMILY PRACTICE 06/20/17 documented as of this encounter
--- OUTSIDE RECORDS SUMMARY | 2024-03-20 16:40 | XMS_ITS | Encounter Summary ---
Author Organization [facility] Address [address] [place] [address]. [place], [place] [address] [place] [address] Care Team Providers Care Hand Spray Operator Name Role Phone Ashley ZUNIGA MD, Hermes Perez Primary Care Provid er Encounter Details Date Type Department Care Team (Latest Contact Info) Description 06/21/2017 Abstract [facility] Medical Group Sekou Grimes MD [address] [place] [address] Social History Tobacco Use Types Packs/Day Years Used Date Smoking Tobacco: Every Day Cigarettes 0.5 15 Alcohol Use Standard Drinks/Week Comments No 0 (1 standard drink = 0.6 oz pur e alcohol) Comments Unknown Sex and Gender Information Value Date Recorded Sex Assigned at Not on file Legal Sex Female 9:15 PM PACKAGE LINER Gender Identity Not on file Sexual Orientation Not on file documented as of this encounter Discharge Summaries * Sekou Grimes MD - 06/21/2017 5:00 PM CDT [place] [address] [place] [address] Patient Name: MISHA JACKSON Date of : 1980 Med Rec #: [id number] Date of Service: 06/21/2017 Disch Date: Physician Discharge Summary Patient ID: Misha [place] [id number] 36-year-old 1980 Admit date: 06/20/2017 Expected Discharge [...] No f/u required with surgery. Signed: SEKOU GRIEMS MD 06/21/2017 5:00 PM Signed by: SEKOU GRIMES 06/21/2017 5:04 PM documented in this encounter Plan of Treatment Not on file documented as of this encounter Visit Diagnoses Not on filedocumented in this encounter Care Teams Hand Spray Operator Relationship Specialty Start Date End Date Hermes Ramirez III, MD [address] [address] PCP - General FAMILY PRACTICE 06/20/17 documented as of this encounter
--- OUTSIDE RECORDS SUMMARY | 2024-03-20 16:40 | XMS_ITS | Encounter Summary ---
Author Organization [facility] Address [address] [place] [address]. [place], [place] [address] [place] [address] Care Team Providers Care Wheel Braider Name Role Phone Ashley ZUNIGA MD, Hermes Perez Primary Care Provid er Encounter Details Date Type Department Care Team (Latest Contact Info) Description 06/07/2017 Abstract [facility] Medical Group , Lazara Lange MD Social History Tobacco Use Types Packs/Day Years Used Date Smoking Tobacco: Never Assessed Comments Unknown Sex and Gender Information Value Date Recorded Sex Assigned at Not on file Legal Sex Female 9:15 PM SPINNER CONCRETE PIPE Gender Identity Not on file Sexual Orientation [...] due to previous LEEPs x 2-3 Note: Accountant Tax-Onc refused to do her surgery to avoid creating more scarring tissue. F/U for final disposition (possible Dx Laparoscopy)??? Ar Laws MD Electronically signed by: Ar Laws Date: 06/07/2017 17:08 documented in this encounter Plan of Treatment Not on file documented as of this encounter Visit Diagnoses Not on filedocumented in this encounter Care Teams Wheel Braider Relationship Specialty Start Date End Date Hermes Ramirez III, MD [address] [address] PCP - General FAMILY PRACTICE 06/20/17 documented as of this encounter
--- OUTSIDE RECORDS SUMMARY | 2024-03-20 16:41 | XMS_ITS | Encounter Summary ---
Author Organization [facility] Address [address] [place] [address]. [place], [place] [address] [place] [address] Care Team Providers Care Network Associate Name Role Phone Unavailable Primary Care Provider Unavailabl e Encounter Details Date Type Department Care Team (Late st Contact Info) Description 02/24/2017 Emergency [place] [facility] [address] [place] [place] [address] Abdelrahman Renner MD [address] [place] [address] Social History Tobacco Use Types Packs/Day Years Used Date Smoking Tobacco: Never Assessed Comments Unknown Sex and Gender Information Value Date Recorded Sex Assigned at Not on file Legal Sex Female 9:15 PM DYSLEXIA TEACHER Gender Identity Not on file Sexual Orientation Not on file documented as of this encounter Plan of Treatment Not on file documented as of this encounter Visit Diagnoses Diagnosis Abdominal pain Abdominal pain, unspecified site documented in this encounter
--- OUTSIDE RECORDS SUMMARY | 2024-03-20 16:41 | XMS_ITS | Encounter Summary ---
Author Organization [facility] Address [address] [place] [address]. [place] [address] [place] [address] Care Team Providers Care Ground Transportation Operator Name Role Phone Unavailable Primary Care Provider Unavailabl e Encounter Details Date Type Department Care Team (Late st Contact Info) Description 05/04/2017 Orders Only [place] [address] , Generic Conversion, Social History Tobacco Use Types Packs/Day Years Used Date Smoking Tobacco: Never Assessed Comments Unknown Sex and Gender Information Value Date Recorded Sex Assigned at Not on file Legal Sex Female 9:15 PM REGISTERED DIETITIAN Gender Identity Not on file Sexual Orientation [...] (URINE) NEGATIVE NEGATIVE 11/26/2016 10:27 AM CDT [facility] Comment: PRESUMPTIVE NEGATIVE FOR L. [...] GENERAL ORDERABLES Final Result Performing Organization Address City/State/[facility] Co de Phone Number [facility] [address] [place] [address], [phone] documented in this encounter Visit Diagnoses Not on filedocumented in this encounter
--- OUTSIDE RECORDS SUMMARY | 2024-03-20 16:41 | XMS_ITS | Encounter Summary ---
Author Organization [facility] Address [address] [place] [address]. [place], [place] [address] [place] [address] Care Team Providers Care Medical Communication Specialist Name Role Phone Unavailable Primary Care Provider Unavailabl e Encounter Details Date Type Department Care Team (Late st Contact Info) Description 02/27/2017 Emergency [facility] Emergency [address] [place] [address] Social History Tobacco Use Types Packs/Day Years Used Date Smoking Tobacco: Never Assessed Comments Unknown Sex and Gender Information Value Date Recorded Sex Assigned at Not on file Legal Sex Female 9:15 PM PAINT TECHNICIAN Gender Identity Not on file Sexual Orientation Not on file documented as of this encounter Plan of Treatment Not on file documented as of this encounter Visit Diagnoses Diagnosis Headache documented in this encounter
--- OUTSIDE RECORDS SUMMARY | 2024-03-20 16:41 | XMS_ITS | Encounter Summary ---
Author Organization [facility] Address [address] [place] [address]. [place] [address] [place] [address] Care Team Providers Care Crystal Grinder Name Role Phone Ashley ZUNIGA MD, Hermes Perez Primary Care Provid er Encounter Details Date Type Department Care Team (Latest Contact Info) Description 05/01/2017 Abstract [facility] Medical Group Social History Tobacco Use Types Packs/Day Years Used Date Smoking Tobacco: Never Assessed Comments Unknown Sex and Gender Information Value Date Recorded Sex Assigned at Not on file Legal Sex Female 9:15 PM GYM MANAGER Gender Identity Not on file Sexual [...] by:Jennifer Gordon L.P.N. May 01 2017 10:31AM GYM MANAGER documented in this encounter Plan of Treatment Not on file documented as of this encounter Visit Diagnoses Not on filedocumented in this encounter Care Teams Crystal Grinder Relationship Specialty Start Date End Date Hermes Ramirez III, MD [address] [facility] [address] [place] [address] PCP - General FAMILY PRACTICE 06/20/17 documented as of this encounter
--- OUTSIDE RECORDS SUMMARY | 2024-03-20 16:41 | XMS_ITS | Encounter Summary ---
Author Organization [facility] Address [address] [place] [address]. [place], [place] [address] [place] [address] Care Team Providers Care Contract Consultant Name Role Phone Ashley ZUNIGA MD, Hermes Perez Primary Care Provid er Encounter Details Date Type Department Care Team (Latest Contact Info) Description 02/28/2017 Abstract [facility] Medical Group Social History Tobacco Use Types Packs/Day Years Used Date Smoking Tobacco: Never Assessed Comments Unknown Sex and Gender Information Value Date Recorded Sex Assigned at Not on file Legal Sex Female 9:15 PM RADIATOR CLEANER Gender Identity Not on file Sexual Orientation Not on file documented as of this encounter Plan of Treatment Not on file documented as of this encounter Visit Diagnoses Not on filedocumented in this encounter Care Teams Contract Consultant Relationship Specialty Start Date End Date Hermes Ramirez III, MD [address] [facility] [address] [place] [address] PCP - General FAMILY PRACTICE 06/20/17 documented as of this encounter
--- OUTSIDE RECORDS SUMMARY | 2024-03-20 16:41 | XMS_ITS | Encounter Summary ---
Author Organization [facility] Address [address] [place] [address]. [place] [address] [place] [address] Care Team Providers Care Photography Spotter Name Role Phone Ashley ZUNIGA MD, Hermes Perez Primary Care Provid er Encounter Details Date Type Department Care Team (Late st Contact Info) Description 04/11/2017 Abstract [facility] [address] [facility] [place] [address] Tonny Cavazos MD [address] [place] [address] Social History Tobacco Use Types Packs/Day Years Used Date Smoking Tobacco: Never Assessed Comments Unknown Sex and Gender Information Value Date Recorded Sex Assigned at Not on file Legal Sex Female 9:15 PM FORENSIC STRUCTURAL ENGINEER Gender Identity Not on file Sexual Orientation Not on file documented as of this encounter Plan of Treatment Not on file documented as of this encounter Visit Diagnoses Diagnosis Cyst of right ovary Other and unspecified ovarian cyst documented in this encounter Care Teams Photography Spotter Relationship Specialty Start Date End Date Hermes Ramirez III, MD [address] [facility] [address] [place] [address] PCP - General FAMILY PRACTICE 06/20/17 documented as of this encounter
--- OUTSIDE RECORDS SUMMARY | 2024-03-20 16:41 | XMS_ITS | Encounter Summary ---
Author Organization [facility] Address [address] [place] [address]. [place] [address] [place] [address] Care Team Providers Care Freight Broker Agent Name Role Phone Unavailable Primary Care Provider Unavailabl e Encounter Details Date Type Department Care Team (Late st Contact Info) Description 04/12/2017 Emergency [facility] [address] [place] [address] Jf Khan MD Social History Tobacco Use Types Packs/Day Years Used Date Smoking Tobacco: Never Assessed Comments Unknown Sex and Gender Information Value Date Recorded Sex Assigned at Not on file Legal Sex Female 9:15 PM COLLEGE BASKETBALL COACH Gender Identity Not on file Sexual Orientation Not on file documented as of this encounter Plan of Treatment Not on file documented as of this encounter Procedures Procedure Name Priority Date/Time Associated Diagnosis Comments URINALYSIS COMPLETE W/RFX TO CULTURE STAT 04/12/2017 7:20 PM COLLEGE BASKETBALL COACH DRUG SCREEN RAPID STAT 04/12/2017 7:2 0 PM COLLEGE BASKETBALL COACH TEST URINE STAT 04/12/2017 7:20 PM COLLEGE BASKETBALL COACH documented in this encounter Results * DRUG SCREEN RAPID (04/12/2017 7:20 PM COLLEGE BASKETBALL COACH) CANNABINOIDS SCREEN (U) NEGATIVE 04/13/2017 5:43 AM COLLEGE BASKETBALL COACH [facility] PHENCYCLIDINE PCP (U) NEGATIVE 04/13/2017 5:43 AM COLLEGE BASKETBALL COACH [facility] COCAINE METABOLITES (U) NEGATIVE 04/13/2017 5:43 AM [facility] METHAMPHETAMINE (U) NEGATIVE 04/13 5:43 AM [facility] OPIATE SCREEN (U) POSITIVE 018 5:43 AM [facility] Comment: A POSITIVE SCREEN INDICATES THE DRUG IS PRESENT ABOVE A DEFINED CUTOFF OF 100 NG/ML. USE FOR MEDICAL PURPOSES ONLY. IF CONFIRMATION IS DESIRED PLEASE CONTACT THE LAB WITHIN ONE WEEK. AMPHETAMINE (U) NEGATIVE 8 5:43 AM [facility] BENZODIAZEPINES SCREEN (U) NEGATIVE 04/13/2017 5:43 AM [facility] TRICYCLIC ANTIDEPRESSANT SCREEN (U) NEGATIVE 04/13/2017 5:43 AM [facility] METHADONE (U) NEGATIVE 04/13/2017 5:43 AM [facility] BARBITURATES SCREEN (U) NEGATIVE 04/13/2017 5:43 AM [facility] OXYCODONE SCREEN (U) NEGATIVE 04/13/2017 5:43 AM [facility] PROPOXYPHENE SCREEN (U) NEGATIVE 04/13/2017 5:43 AM [facility] BUPRENORPHINE SCREEN (U) NEGATIVE 04/13/2017 5:43 AM [facility] 04/12/2017 7:20 PM COLLEGE BASKETBALL COACH 04/13/2017 5:20 AM RUST us Generic Conversion Md MENDOZA URINE ORDERABLES Final Result [facility] [address] [place] [address], * TEST URINE (04/12/2017 7:20 PM RUST) PREG TEST NEGATIVE NEGATIVE 04/12/2017 8:42 PM [facility] SPECIFIC GRAVITY (U) 1.011 04/12/2017 8:42 PM [facility] URINE SPECIMEN / Unknown 04/12/2017 7:20 PM COLLEGE BASKETBALL COACH 04/12/2017 8:27 PM COLLEGE BASKETBALL COACH us Generic Conversion Md MENDOZA URINE ORDERABLES Final Result [facility] [address] [place] [id number], * URINALYSIS COMPLETE W/RFX TO CULTURE (04/12/2017 7:20 PM COLLEGE BASKETBALL COACH) SPECIMEN TYPE URINE CLEAN CATCH 04/12/2017 8:27 PM [facility] COLOR (U) YELLOW 04/12/2017 8:41 PM [facility] TRANSPARENCY HAZY 04/12/2017 8:41 PM [facility] SPECIFIC GRAVITY (U) 1.011 1.002 - 1.035 04/12/2017 8:41 PM [facility] U PH 6.0 5.0 - 9.0 04/12/2017 8:41 PM [facility] LEUKOCYTES (U) NEGATIVE NEGATIVE 04/12/2017 8:41 PM [facility] NITRITES NEGATIVE NEGATIVE 04/12/2017 8:41 PM [facility] PROTEIN (U) NEGATIVE NEGATIVE 04/12/2017 8:41 PM [facility] URINE GLUCOSE NEGATIVE NEGATIVE 04/12/2017 8:41 PM [facility] KETONES MG/DL (U) NEGATIVE NEGATIVE 04/12/2017 8:41 PM [facility] UROBILINOGEN < 2.0 0 - 1 EU/DL 04/12/2017 8:41 PM [facility] BILIRUBIN (U) NEGATIVE NEGATIVE 04/12/2017 8:41 PM [facility] BLOOD (U) NEGATIVE NEGATIVE 04/12/2017 8:41 PM [facility] CULTURE & SENSITIVITY INDICATED? CULTURE IS NOT INDICATED 04/12/2017 8:41 PM [facility] MUCUS RARE 04/12/2017 8:41 PM [facility] WBC/HPF 0-5 /HPF 04/12/2017 8:41 PM [facility] RBC/HPF 0-3 /HPF 04/12/2017 8:41 PM [facility] SQUAMOUS EPITHELIALS MODERATE 04/12/2017 8:41 PM [facility] 04/12/2017 7:20 PM COLLEGE BASKETBALL COACH 04/12/2017 8:26 PM RUST us Generic Conversion Md MENDOZA URINE ORDERABLES Final Result [facility] [address] [place] [address], documented in this encounter Visit Diagnoses Diagnosis Right lower quadrant pain Abdominal pain, right lower quadrant documented in this encounter
--- OUTSIDE RECORDS SUMMARY | 2024-03-20 16:41 | XMS_ITS | Encounter Summary ---
Author Organization [facility] Address [address] [place] [address]. [place], [place] [address] [place] [address] Care Team Providers Care Milking Machine Mechanic Name Role Phone Ashley ZUNIGA MD, Hermes Perez Primary Care Provid er Encounter Details Date Type Department Care Team (Latest Contact Info) Description 03/06/2017 Abstract [facility] Medical Group Lazara Case MD Social History Tobacco Use Types Packs/Day Years Used Date Smoking Tobacco: Never Assessed Comments Unknown Sex and Gender Information Value Date Recorded Sex Assigned at Not on file Legal Sex Female 9:15 PM PAPER CONE GRADER Gender Identity Not on file Sexual Orientation Not on file documented as of this encounter Last Filed Vital Signs Vital Sign Reading Time Taken Comments Blood Pressure 120/80 03/06/2017 2:00 PM PAPER CONE GRADER Pulse 76 03/06/2017 2:00 PM PAPER CONE GRADER Temperature - - Respiratory Rate - - Oxygen Saturation - - Inhaled Oxygen Concentration - - Weight 68 kg (150 lb) 03/06/2017 2:00 PM PAPER CONE GRADER Height 157.5 cm (5' 2 ) 03/06/2017 2:00 PM PAPER CONE GRADER Body Mass Index 27.44 03/06/2017 2:00 PM PAPER CONE GRADER documented in this encounter Plan of Treatment Not on file documented as of this encounter Visit Diagnoses Not on filedocumented in this encounter Care Teams Milking Machine Mechanic Relationship Specialty Start Date End Date Hermes Ramirez III, MD [address] [facility] [address] [place] [address] PCP - General FAMILY PRACTICE 06/20/17 documented as of this encounter
--- OUTSIDE RECORDS SUMMARY | 2024-03-20 16:41 | XMS_ITS | Encounter Summary ---
Author Organization [facility] Address [address] [place] [address]. [place] [address] [place] [address] Care Team Providers Care Machine Rug Cleaner Name Role Phone Ashley ZUNIGA MD, Hermes Perez Primary Care Provid er Encounter Details Date Type Department Care Team (Late st Contact Info) Description 02/18/2017 Abstract [facility] [address] [place] [address] Manjinder Bradley MD [address] [place] [address] Social History Tobacco Use Types Packs/Day Years Used Date Smoking Tobacco: Never Assessed Comments Unknown Sex and Gender Information Value Date Recorded Sex Assigned at Not on file Legal Sex Female 9:15 PM CLOTH PRINTING INSPECTOR Gender Identity Not on file Sexual Orientation Not on file documented as of this encounter Plan of Treatment Not on file documented as of this encounter Procedures Procedure Name Priority Date/Time Associated Diagnosis Comments CBC W/DIFF AUTOMATED STAT 02/18/2017 7:21 PM CLOTH PRINTING INSPECTOR URINALYSIS WI REFLEX TO CULTURE STAT 02/18/2017 7:20 PM CLOTH PRINTING INSPECTOR TEST URINE STAT 02/18/2017 7:20 PM CLOTH PRINTING INSPECTOR documented in this encounter Results * (ABNORMAL) CBC W/DIFF AUTOMATED (02/18/2017 7:21 PM CLOTH PRINTING INSPECTOR) WBC 4.3(L) 4.5 - 10.8 x10'3/uL 02/18/2017 7:58 PM [facility] RBC 2.95(L) 4.10 - 5.40 x10'6/uL 02/18/2017 7:58 PM [facility] HGB 10.1(L) 12.0 - 16.0 G/DL 02/18/2017 7:58 PM [facility] HCT 28.5(L) 36.0 - 47.0 % 02/18/2017 7:58 PM [facility] MCV 96.6 78.0 - 100.0 FL 02/18/2017 7:58 PM [facility] MCH 34.2(H) 27.0 - 31.0 PG 02/18/2017 7:58 PM [facility] MCHC 35.4 33.0 - 36.0 G/DL 02/18/2017 7:58 PM [facility] RDW 12.7 11.5 - 14.5 % 02/18/2017 7:58 PM [facility] PLT 58(L) 150 - 350 x10'3/uL 02/18/2017 7:58 PM [facility] MPV 11.4(H) 7.4 - 10.4 FL 02/18/2017 7:58 PM [facility] SEG NEUTROPHILS 62.0 % 7 8:51 PM [facility] LYMPHOCYTES 20.0 % 02/18/2017 8:51 PM [facility] MONOCYTES 6.0 % 02/18/2017 8:51 PM [facility] EOSINOPHILS 11.6 % 02/18/2017 8:51 PM [facility] BASOPHILS 0.2 % 02/18/2017 8:51 PM [facility] IMMATURE GRANS % 0.2 % 02/19/20 17 8:51 PM [facility] NRBC 0.0 % 02/18/2017 8:51 PM [facility] ABS. NEUTROPHILS 2.67 1.60 - 8.30 x10'3/uL 02/18/2017 8:51 PM [facility] ABS. LYMPHOCYTES 0.86 0.80 - 4.70 x10'3/uL 02/18/2017 8:51 PM [facility] ABS. MONOCYTES 0.26 0.00 - 1.50 x10'3/uL 02/18/2017 8:51 PM [facility] ABS. EOSINOPHILS 0.50(H) 0.00 - 0.40 x10'3/uL 02/18/2017 8:51 PM [facility] ABS. BASOPHILS 0.01 0.00 - 0.20 x10'3/uL 02/18/2017 8:51 PM [facility] ABS. IMMATURE GRANULOCYTES 0.01 0.00 - 0.03 x10'3/uL 02/18/2017 8:51 PM [facility] ABS. NUCLEATED RBC'S 0.00 0.00 x10'3/uL 02/18/2017 8:51 PM [facility] PLT MORPH. NORMAL 02/18/2017 8:51 PM [facility] RBC MORPHOLOGY 1+ 02/18/2017 8:51 PM [facility] Comment:OVALOCYTES1+POLYCHRO MASIA OTHER (type in comments) 02/18/2017 7:21 PM CLOTH PRINTING INSPECTOR 02/18/2017 7:24 PM CLOTH PRINTING INSPECTOR Comment:WHOLE BLOOD SAMPLE us Generic Conversion Md [facility] LABORATORY Final R esult [facility] [address] [place] [address], * (ABNORMAL) URINALYSIS WI REFLEX TO CULTURE (02/18/2017 7:20 PM CLOTH PRINTING INSPECTOR) COLOR (U) YELLOW 02/18/2017 8:37 PM [facility] TRANSPARENCY CLEAR 02/18/2017 8:37 PM [facility] SPECIFIC GRAVITY (U) 1.010 1.000 - 1.025 02/18/2017 8:37 PM [facility] U PH 6.5 5.0 - 8.0 02/18/2017 8:37 PM CLOTH PRINTING INSPECTOR [facility] LEUKOCYTES (U) NEGATIVE NEGATIVE 02/18/2017 8:37 PM CLOTH PRINTING INSPECTOR [facility] NITRITES NEGATIVE NEGATIVE 02/18/2017 8:37 PM CLOTH PRINTING INSPECTOR [facility] PROTEIN (U) NEGATIVE NEGATIVE 02/18/2017 8:37 PM CLOTH PRINTING INSPECTOR [facility] URINE GLUCOSE NEGATIVE NEGATIVE 02/18/2017 8:37 PM CLOTH PRINTING INSPECTOR [facility] KETONES MG/DL (U) NEGATIVE NEGATIVE 02/18/2017 8:37 PM CLOTH PRINTING INSPECTOR [facility] UROBILINOGEN 0.2 <1.0 EU/DL 02/18/2017 8:37 PM [facility] BILIRUBIN (U) NEGATIVE NEGATIVE 02/18/2017 8:37 PM [facility] BLOOD (U) NEGATIVE NEGATIVE 02/18/2017 8:37 PM [facility] WBC/HPF 0-5 0 - 5 /HPF 02/18/2017 8:37 PM [facility] RBC/HPF 5-10(A) 0 - 5 /HPF 02/18/2017 8:37 PM [facility] EPI/HPF OCCASIONAL /LPF 02/18/2017 8:37 PM [facility] BACTERIA (U) TRACE /HPF 02/18/2017 8:37 PM [facility] CULTURE & SENSITIVITY INDICATED? NOT INDICATED 02/18/2017 8:37 PM [facility] OTHER (type in comments) 02/18/2017 7:20 PM CLOTH PRINTING INSPECTOR 02/18/2017 7:46 PM CLOTH PRINTING INSPECTOR Comment:URINE SPECIMEN~URINE SPECIMEN us Generic Conversion Md MENDOZA URINE ORDERABLES Final Result [facility] [address] [place] [address], * TEST URINE (02/18/2017 7:20 PM CLOTH PRINTING INSPECTOR) PREG TEST NEGATIVE 02/18/2017 7:55 PM CLOTH PRINTING INSPECTOR [facility] SPECIFIC GRAVITY (U) 1.010 02/18/2017 7:55 PM CLOTH PRINTING INSPECTOR [facility] URINE SPECIMEN / Unknown 02/18/2017 7:20 PM CLOTH PRINTING INSPECTOR 02/18/2017 7:46 PM CLOTH PRINTING INSPECTOR us Generic Conversion Md MENDOZA URINE ORDERABLES Final Result [facility] [address] [place] [address], documented in this encounter Visit Diagnoses Diagnosis Cyst of ovary Other and unspecified ovarian cyst documented in this encounter Care Teams Machine Rug Cleaner Relationship Specialty Start Date End Date Hermes Ramirez III, MD [facility] [address] [address] PCP - General FAMILY PRACTICE 06/20/17 documented as of this encounter
--- OUTSIDE RECORDS SUMMARY | 2024-03-20 16:41 | XMS_ITS | Encounter Summary ---
Author Organization [facility] Address [address] [place] [address]. [place] [address] [place] [address] Care Team Providers Care Polysomnography Tech Name Role Phone Unavailable Primary Care Provider Unavailabl e Encounter Details Date Type Department Care Team (Late st Contact Info) Description 04/21/2017 Orders [place] [id number] , Generic Conversion, Social History Tobacco Use Types Packs/Day Years Used Date Smoking Tobacco: Never Assessed Comments Unknown Sex and Gender Information Value Date Recorded Sex Assigned at Not on file Legal Sex Female 9:15 PM UPSETTER HELPER Gender Identity Not on file Sexual Orientation Not on file documented as of this encounter Plan of Treatment Not on file documented as of this encounter Procedures Procedure Name Priority Date/Time Associated Diagnosis Comments VAGINITIS SCREEN STAT 10/06/2015 1:01 AM CDT documented in this encounter Results * VAGINITIS SCREEN (10/06/2015 1:01 AM CDT) SPEC DESCRIPTION GENITAL 10/05/2015 10:22 PM CDT [facility] SPECIAL REQUESTS NO SPECIAL REQUEST 10/05/2015 10:22 PM CDT [facility] RESULT TRICHOMONAS VAGINALIS NEGATIVE 10/06/2015 1:01 AM CDT [facility] RESULT GARDNERELLA VAGINALIS POSITIVE 10/06/2015 1:01 AM CDT [facility] RESULT TRACEY SPECIES NEGATIVE 10/06/2015 1:01 AM CDT [facility] GENITAL SWAB / Unknown 10/05/2015 11:38 PM CDT Comment:ENDOCERVICAL us Generic Conversion Md MENDOZA MICROBIOLOGY - GENERAL ORDERABLES Final Result Performing Organization Address City/State/[facility] Co de Phone Number [facility] [address] [place] [address], [id number] documented in this encounter Visit Diagnoses Not on filedocumented in this encounter
--- OUTSIDE RECORDS SUMMARY | 2024-03-20 16:41 | XMS_ITS | Encounter Summary ---
Author Organization [facility] Address [address] [place] [address]. [place] [address] [place] [address] Care Team Providers Care Roundhouse Firer/Fireman Name Role Phone Unavailable Primary Care Provider Unavailabl e Encounter Details Date Type Department Care Team (Late st Contact Info) Description 04/21/2017 Orders Only [place] [address] , Generic Conversion, Social History Tobacco Use Types Packs/Day Years Used Date Smoking Tobacco: Never Assessed Comments Unknown Sex and Gender Information Value Date Recorded Sex Assigned at Not on file Legal Sex Female 9:15 PM MANAGER OF SCHOOL Gender Identity Not on file Sexual [...] TMA NEGATIVE NEGATIVE 10/09/2015 12:35 PM CDT [facility] CHLAMYDIA PCR NEGATIVE NEGATIVE 10/09/2015 12:35 PM CDT [facility] SPECIMEN SOURCE GENITAL 10/05/2015 10:22 PM CDT [facility] 10/05/2015 11: 39 PM CDT us Generic Conversion Md MENDOZA MICROBIOLOGY - GENERAL ORDERABLES Final Result [facility] [address] [place] [address], [id number] documented in this encounter Visit Diagnoses Not on filedocumented in this encounter
--- OUTSIDE RECORDS SUMMARY | 2024-03-20 16:41 | XMS_ITS | Encounter Summary ---
Author Organization [facility] Address [address] [place] [address]. [place], [place] [address] [place] [address] Care Team Providers Care Coal Grader Name Role Phone Ashley ZUNIGA MD, Hermes Perez Primary Care Provid er Encounter Details Date Type Department Care Team (Latest Contact Info) Description 02/18/2017 Abstract [facility] Medical Group Social History Tobacco Use Types Packs/Day Years Used Date Smoking Tobacco: Never Assessed Comments Unknown Sex and Gender Information Value Date Recorded Sex Assigned at Not on file Legal Sex Female 9:15 PM DOOR FITTER Gender Identity Not on file Sexual Orientation Not on file documented as of this encounter Plan of Treatment Not on file documented as of this encounter Visit Diagnoses Not on filedocumented in this encounter Care Teams Coal Grader Relationship Specialty Start Date End Date Hermes Ramirez III, MD [address] [facility] [address] [place] [address] PCP - General FAMILY PRACTICE 06/20/17 documented as of this encounter
--- OUTSIDE RECORDS SUMMARY | 2024-03-20 16:41 | XMS_ITS | Encounter Summary ---
Author Organization [facility] Address [address] [place] [address]. [place], [place] [phone] [place] [address] Care Team Providers Care Rn Building Name Role Phone Ashley ZUNIGA MD, Hermes Perez Primary Care Provid er Encounter Details Date Type Department Care Team (Latest Contact Info) Description 02/15/2017 Abstract [facility] Medical Group Social History Tobacco Use Types Packs/Day Years Used Date Smoking Tobacco: Never Assessed Comments Unknown Sex and Gender Information Value Date Recorded Sex Assigned at Not on file Legal Sex Female 9:15 PM VICE PRINCIPAL Gender Identity Not on file Sexual Orientation Not on file documented as of this encounter Plan of Treatment Not on file documented as of this encounter Visit Diagnoses Not on filedocumented in this encounter Care Teams Rn Building Relationship Specialty Start Date End Date Hermes Ramirez III, MD [address] [facility] [address] [place] [address] PCP - General FAMILY PRACTICE 06/20/17 documented as of this encounter
--- OUTSIDE RECORDS SUMMARY | 2024-03-20 16:41 | XMS_ITS | Encounter Summary ---
Author Organization [facility] Address [address] [place] [address]. [place] [address] [place] [address] Care Team Providers Care Plant Production Worker Name Role Phone Unavailable Primary Care Provider Unavailabl e Encounter Details Date Type Department Care Team (Late st Contact Info) Description 02/15/2017 Orders Only [place] [address] , Generic Conversion, Social History Tobacco Use Types Packs/Day Years Used Date Smoking Tobacco: Never Assessed Comments Unknown Sex and Gender Information Value Date Recorded Sex Assigned at Not on file Legal Sex Female 9:15 PM CASHIER WRAPPER Gender Identity Not on file Sexual Orientation Not on file documented as of this encounter Plan of Treatment Not on file documented as of this encounter Procedures Procedure Name Priority Date/Time Associated Diagnosis Comments BASIC METABOLIC PANEL STAT 02/15/2017 3:02 PM CASHIER WRAPPER documented in this encounter Results * (ABNORMAL) BASIC METABOLIC PANEL (02/15/2017 3:02 PM CASHIER WRAPPER) SODIUM S/P/B 140 135 - 147 MMOL/L 02/15/2017 3:58 PM CASHIER WRAPPER [facility] POTASSIUM S/P/B 4.4 3.5 - 5.0 MMOL/L 02/15/2017 3:58 PM CASHIER WRAPPER [facility] CHLORIDE S/P/B 116(H) 98 - 107 MMOL/L 02/15/2017 3:58 PM CASHIER WRAPPER [facility] CALCIUM S/P/B 8.3(L) 8.4 - 10.2 MG/DL 02/15/2017 3:58 PM CASHIER WRAPPER [facility] CO2 18.8(L) 22 - 29 MMOL/L 02/15/2017 3:58 PM CASHIER WRAPPER [facility] GLUCOSE 95 70 - 109 MG/DL 02/15/2017 3:58 PM [facility] BUN 27(H) 7 - 19 MG/DL 02/15/2017 3:58 PM [facility] CREATININE S/P/B 2.30(H) 0.60 - 1.10 MG/DL 02/15/2017 3:58 PM [facility] OSMOLALITY (CALC) 284 02/15/2017 3:58 PM [facility] ANION GAP 5 MMOL/L 02/15/2017 3:58 PM [facility] PLASMA SPECIMEN / Unknown 02/15/2017 3:02 PM CASHIER WRAPPER 02/15/2017 3:03 PM CASHIER WRAPPER us Generic Conversion Md [facility] Final R esult [facility] [address] [place] [address], [id number] documented in this encounter Visit Diagnoses Not on filedocumented in this encounter
--- OUTSIDE RECORDS SUMMARY | 2024-03-20 16:41 | XMS_ITS | Encounter Summary ---
Author Organization [facility] Address [address] [place] [address]. [place] [address] [place] [address] Care Team Providers Care Machine Baster Name Role Phone Unavailable Primary Care Provider Unavailabl e Encounter Details Date Type Department Care Team (Late st Contact Info) Description 05/04/2017 Orders [place] [address] , Generic Conversion, Social History Tobacco Use Types Packs/Day Years Used Date Smoking Tobacco: Never Assessed Comments Unknown Sex and Gender Information Value Date Recorded Sex Assigned at Not on file Legal Sex Female 9:15 PM RUG INSPECTOR HELPER Gender Identity Not on file Sexual Orientation Not on file documented as of this encounter Plan of Treatment Not on file documented as of this encounter Procedures Procedure Name Priority Date/Time Associated Diagnosis Comments URINALYSIS NOW 11/24/2016 9:01 AM CDT documented in this encounter Results * URINALYSIS (11/24/2016 9:01 AM CDT) COLOR (U) STRAW 11/24/2016 9:01 AM CDT [facility] TRANSPARENCY CLEAR 11/24/2016 9:01 AM CDT [facility] SPECIFIC GRAVITY (U) 1.004 1.002 - 1.035 11/24/2016 9:01 AM CDT [facility] U PH 7.0 5 - 8 11/24/2016 9:01 AM CDT [facility] PROTEIN (U) NEGATIVE NEGATIVE 11/24/2016 9:01 AM CDT [facility] URINE GLUCOSE NEGATIVE NEGATIVE MG/DL 11/24/2016 9:01 AM CDT [facility] KETONES MG/DL (U) NEGATIVE NEGATIVE 11/24/2016 9:01 AM CDT [facility] BILIRUBIN (U) NEGATIVE NEGATIVE 11/24/2016 9:01 AM CDT [facility] BLOOD (U) NEGATIVE NEGATIVE 11/24/2016 9:01 AM CDT [facility] NITRITES NEGATIVE NEGATIVE 11/24/2016 9:01 AM CDT [facility] UROBILINOGEN NORMAL 0 - 1 EU/DL 11/24/2016 9:01 AM CDT [facility] LEUKOCYTES (U) NEGATIVE NEGATIVE 11/24/2016 9:01 AM T [facility] RBC/HPF NONE /HPF 11/24/2016 9:01 AM T [facility] WBC/HPF <1 /HPF 11/24/2016 9:01 AM T [facility] BACTERIA (U) NONE /HPF 11/24/2016 9:01 AM CDT [facility] SQUAMOUS EPITHELIALS <1 11/24/2016 9:01 AM T [facility] URINE SPECIMEN / Unknown 11/24/2016 8:15 AM CDT us Generic Conversion Md [facility] URINE ORDERABLES Final Result [facility] [address] [place] [address], [id number] documented in this encounter Visit Diagnoses Not on filedocumented in this encounter
--- OUTSIDE RECORDS SUMMARY | 2024-03-20 16:41 | XMS_ITS | Encounter Summary ---
Author Organization [facility] Address [address] [place] [address]. [place] [address] [place] [address] Care Team Providers Care Fish Net Stringer Name Role Phone Ashley ZUNIGA MD, Hermes Perez Primary Care Provid er Encounter Details Date Type Department Care Team (Late st Contact Info) Description 04/02/2017 Abstract [facility] [address] [place] [address] Devan Richards MD [address] [place] [address] Social History Tobacco Use Types Packs/Day Years Used Date Smoking Tobacco: Never Assessed Comments Unknown Sex and Gender Information Value Date Recorded Sex Assigned at Not on file Legal Sex Female 9:15 PM SILVICULTURE FORESTER Gender Identity Not on file Sexual Orientation Not on file documented as of this encounter Plan of Treatment Not on file documented as of this encounter Procedures Procedure Name Priority Date/Time Associated Diagnosis Comments STREP A, DNA Routine 04/02/2017 6:49 PM SILVICULTURE FORESTER RAPID STREP A STAT 04/02/2017 6:49 PM SILVICULTURE FORESTER URINALYSIS WI REFLEX TO CULTURE STAT 04/02/2017 5:53 PM SILVICULTURE FORESTER documented in this encounter Results * STREP A, DNA (04/02/2017 6:49 PM SILVICULTURE FORESTER) SPEC DESCRIPTION THROAT 04/02/2017 7:06 PM SILVICULTURE FORESTER [facility] SPECIAL REQUESTS NO SPECIAL REQUEST 04/02/2017 7:06 PM SILVICULTURE FORESTER [facility] RESULT POSITIVE 04/02/2017 8:04 PM [facility] THROAT SWAB / Unknown 04/02/2017 6:49 PM SILVICULTURE FORESTER 04/02/2017 7:06 PM SILVICULTURE FORESTER us Generic Conversion Md [facility] MICROBIOLOGY - GENERAL ORDERABLES Final Result Performing Organization Address [facility] Co de Phone Number [facility] [address] [place] [address], [place] [phone] * RAPID STREP A (04/02/2017 6:49 PM SILVICULTURE FORESTER) SPEC DESCRIPTION THROAT 04/02/2017 6:45 PM [facility] SPECIAL REQUESTS NO SPECIAL REQUEST 04/02/2017 6:45 PM [facility] RAPID STREP TEST NEGATIVE 04/02/2017 7:05 PM [facility] THROAT SWAB / Unknown 04/02/2017 6:49 PM SILVICULTURE FORESTER 04/02/2017 6:53 PM SILVICULTURE FORESTER us Generic Conversion Md [facility] MICROBIOLOGY - GENERAL ORDERABLES Final Result Performing Organization Address [facility] Co de Phone Number [address] [address], [place] [phone] * URINALYSIS WI REFLEX TO CULTURE (04/02/2017 5:53 PM SILVICULTURE FORESTER) COLOR (U) YELLOW 04/02/2017 6:23 PM [facility] TRANSPARENCY CLEAR 04/02/2017 6:23 PM [facility] SPECIFIC GRAVITY (U) 1.015 1.000 - 1.025 04/02/2017 6:23 PM [facility] U PH 5.5 5.0 - 8.0 04/02/2017 6:23 PM [facility] LEUKOCYTES (U) NEGATIVE NEGATIVE 04/02/2017 6:23 PM [facility] NITRITES NEGATIVE NEGATIVE 04/02/2017 6:23 PM [facility] PROTEIN (U) NEGATIVE NEGATIVE 04/02/2017 6:23 PM [facility] URINE GLUCOSE NEGATIVE NEGATIVE 04/02/2017 6:23 PM [facility] KETONES MG/DL (U) NEGATIVE NEGATIVE 04/02/2017 6:23 PM [facility] UROBILINOGEN 0.2 <1.0 EU/DL 04/02/2017 6:23 PM [facility] BILIRUBIN (U) NEGATIVE NEGATIVE 04/02/2017 6:23 PM [facility] BLOOD (U) NEGATIVE NEGATIVE 04/02/2017 6:23 PM [facility] WBC/HPF 0-5 0 - 5 /HPF 04/02/2017 6:23 PM [facility] RBC/HPF 0-5 0 - 5 /HPF 04/02/2017 6:23 PM [facility] EPI/HPF FEW /LPF 04/02/2017 6:23 PM [facility] BACTERIA (U) TRACE /HPF 04/02/2017 6:23 PM [facility] MUCUS PRESENT 04/02/2017 6:23 PM [facility] OTHER CASTS (U) HYALINE /LPF 8 6:23 PM [facility] Comment:5-10 CULTURE & SENSITIVITY INDICATED? NOT INDICATED 04/02/2017 6:23 PM [facility] OTHER (type in comments) 04/02/2017 5:53 PM SILVICULTURE FORESTER 04/02/2017 6:14 PM SILVICULTURE FORESTER Comment:URINE SPECIMEN~URINE SPECIMEN us Generic Conversion Md [facility] URINE ORDERABLES Final Result [facility] [address] [place] [address], documented in this encounter Visit Diagnoses Diagnosis Migraine without status migrainosus, not intractable Migraine, unspecified, without mention of intractable migraine without mention of status migrainosus documented in this encounter Care Teams Fish Net Stringer Relationship Specialty Start Date End Date Hermes Ramirez III, MD [address] [facility] [address] [place] [address] PCP - General FAMILY PRACTICE 06/20/17 documented as of this encounter
--- OUTSIDE RECORDS SUMMARY | 2024-03-20 16:41 | XMS_ITS | Encounter Summary ---
Author Organization [facility] Address [address] [place] [address]. [place], [place] [address] [place] [address] Care Team Providers Care Burn Table Operator Name Role Phone Ashley ZUNIGA MD, Hermes Perez Primary Care Provid er Encounter Details Date Type Department Care Team (Latest Contact Info) Description 03/27/2017 Abstract [facility] , Lazara Lange MD Social History Tobacco Use Types Packs/Day Years Used Date Smoking Tobacco: Never Assessed Comments Unknown Sex and Gender Information Value Date Recorded Sex Assigned at Not on file Legal Sex Female 9:15 PM CHILD DEVELOPMENT PROFESSOR Gender Identity Not on file Sexual Orientation Not on file documented as of this encounter Plan of Treatment Not on file documented as of this encounter Visit Diagnoses Not on filedocumented in this encounter Care Teams Burn Table Operator Relationship Specialty Start Date End Date Hermes Ramirez III, MD [address] [facility] [address] [place] [address] PCP - General FAMILY PRACTICE 06/20/17 documented as of this encounter
--- OUTSIDE RECORDS SUMMARY | 2024-03-20 16:41 | XMS_ITS | Encounter Summary ---
Author Organization [facility] Address [address] [place] [address]. [place], [place] [address] [place] [address] Care Team Providers Care Office Automation Clerk Name Role Phone Ashley ZUNIGA MD, Hermes Perez Primary Care Provid er Encounter Details Date Type Department Care Team (Latest Contact Info) Description 05/19/2017 Abstract [facility] Lazara Case MD Social History Tobacco Use Types Packs/Day Years Used Date Smoking Tobacco: Never Assessed Comments Unknown Sex and Gender Information Value Date Recorded Sex Assigned at Not on file Legal Sex Female 9:15 PM COPPERSMITH HELPER Gender Identity Not on file Sexual Orientation Not on file documented as of this encounter Last Filed Vital Signs Vital Sign Reading Time Taken Comments Blood Pressure 122/76 05/19/2017 1:34 PM COPPERSMITH HELPER Pulse 70 05/19/2017 1:34 PM COPPERSMITH HELPER Temperature - - Respiratory Rate - - Oxygen Saturation - - Inhaled Oxygen Concentration - - Weight 68 kg (150 lb) 05/19/2017 1:34 PM COPPERSMITH HELPER Height 157.5 cm (5' 2 ) 05/19/2017 1:34 PM COPPERSMITH HELPER Body Mass Index 27.44 05/19/2017 1:34 PM COPPERSMITH HELPER documented in this encounter Progress Notes * [...] VIN3 and IFEANYI 3. Has seen in [place] in the past. Recent Hospitalizatiion for Pancreatitis [...] Smoking cessation advised Plan ? Encntr for photo specialist exam (general) (routine) w/o abn findings Lab: [...] and vulva, p.r.n. problems. Care Team [facility] Maria Isabel Jennings MD Electronically [...] not on the left. IMPRESSION: Limited TV WAGE ADJUSTER sono for RLQ pain: normal uterus with [...] IMAGING SYSTEM PAP Routine 05/19/2017 3:07 PM COPPERSMITH HELPER documented in this encounter Results * (ABNORMAL) THINPREP IMAGING SYSTEM PAP (05/19/2017 3:07 PM COPPERSMITH HELPER) THIN PREP PAP (A) [facility] CONVERSION Comment: Patient Name: MISHA JACKSON Specimen #: [id number] ?? Procedure Date: 05/19/2017 /Age: 7 1980 (Age: 36) Gender: ??F Accessioned: 05/22/2017 Address: [address] ??[address] Reported: 05/30/2017 ?? Encounter: [id number] Location: [facility] ?? Physician(s): MARIA ISABEL JENNINGS MD ?? : ? CYTOPATHOLOGY - GYNECOLOGIC REPORT Diagnosis: TEST NAME: ??THINPREP PAP WITH PROSTHETIC LAB TECHNICIAN,REFLEX HPV-ASCUS AND ABOVE INTERPRETATION/RESULT: EPITHELIAL CELL ABNORMALITY: ATYPICAL SQUAMOUS CELLS OF UNDETERMINED SIGNIFICANCE. FUNGAL ORGANISMS MORPHOLOGICALLY CONSISTENT WITH TRACEY SPECIES ARE PRESENT. SPECIMEN FORWARDED FOR FURTHER HPV EVALUATION. STATEMENT OF ADEQUACY: SATISFACTORY FOR EVALUATION; ENDOCERVICAL/TRANSFORMATION ZONE COMPONENT PRESENT. ?? YXM CRISTHIAN MUNGUIA MD [facility]/05/26/2017 Report Electronically Signed ? Procedures/Addenda HPV mRNA E6/E7: ABNORMAL Interpretation: HPV mRNA E6/E7: ? Positive - HPV mRNA Detected THIS HIGH RISK HPV mRNA ASSAY DETECTS FOURTEEN HIGH-RISK HPV TYPES (16,18,31,33,35,39,45,51,52,56,58,59,66,68) WITHOUT DIFFERENTIATION. ? DOMO MARTÍNEZ ? HPV mRNA E6/E7 Electronically Signed Specimen: THINPREP PAP WITH PROSTHETIC LAB TECHNICIAN,REFLEX HPV-ASCUS AND ABOVE Clinical Diagnosis and History Date of Last Menstrual Period: ? , Specimen Source: Cervical/Endocervical ? PAP SMEARS ARE SCREENING TESTS SUBJECT TO BOTH FALSE NEGATIVE AND FALSE POSITIVE RESULTS EVIDENCED BY DATA PUBLISHED IN THE MEDICAL LITERATURE. YOUR PATIENT'S RESULT SHOULD BE INTERPRETED IN THIS CONTEXT, TOGETHER WITH THE PATIENT'S HISTORY AND CLINICAL FINDINGS. 05/19/2017 3:07 PM COPPERSMITH HELPER Narrative [facility] TO EPIC CONVERSION - 05/19/2017 3:07 PM COPPERSMITH HELPER [Task Forwarded to [facility]] notify and sched. ata with [facility] us Maria Isabel Jennings MD PATHOLOGY/CYTOLOGY ORDERAB LES Edited Result - Final [facility] TO EPIC CONVERSION documented in this encounter Visit Diagnoses Not on filedocumented in this encounter Care Teams Office Automation Clerk Relationship Specialty Start Date End Date Hermes Ramirez III, MD [address] [facility] [address] [place] [address] PCP - General FAMILY PRACTICE 06/20/17 documented as of this encounter
--- OUTSIDE RECORDS SUMMARY | 2024-03-20 16:41 | XMS_ITS | Encounter Summary ---
Author Organization [facility] Address [address] [place] [address]. [place], [place] [address] [place] [address] Care Team Providers Care Unit Manager Name Role Phone Ashley ZUNIGA MD, Hermes Perez Primary Care Provid er Encounter Details Date Type Department Care Team (Latest Contact Info) Description 03/24/2017 Abstract [facility] , Lazara Lange MD Social History Tobacco Use Types Packs/Day Years Used Date Smoking Tobacco: Never Assessed Comments Unknown Sex and Gender Information Value Date Recorded Sex Assigned at Not on file Legal Sex Female 9:15 PM BLOW MOLDING MACHINE TENDER Gender Identity Not on file Sexual Orientation Not on file documented as of this encounter Last Filed Vital Signs Vital Sign Reading Time Taken Comments Blood Pressure 110/70 03/24/2017 10:40 AM BLOW MOLDING MACHINE TENDER Pulse 76 03/24/2017 10:40 AM BLOW MOLDING MACHINE TENDER Temperature - - Respiratory Rate - - Oxygen Saturation - - Inhaled Oxygen Concentration - - Weight 68 kg (150 lb) 03/24/2017 10:40 AM BLOW MOLDING MACHINE TENDER Height 157.5 cm (5' 2 ) 03/24/2017 10:40 AM BLOW MOLDING MACHINE TENDER Body Mass Index 27.44 03/24/2017 10:40 AM BLOW MOLDING MACHINE TENDER documented in this encounter Progress Notes * [...] VIN3 and IFEANYI 3. Has seen in [place] in the past. Recent Hospitalizatiion for Pancreatitis [...] on filedocumented in this encounter Care Teams Unit Manager Relationship Specialty Start Date End Date Hermes Ramirez III, MD [facility] [address] [place] [id number] PCP - General FAMILY PRACTICE 06/20/17 documented as of this encounter
--- OUTSIDE RECORDS SUMMARY | 2024-03-20 16:41 | XMS_ITS | Encounter Summary ---
Author Organization [facility] Address [address] [place] [address]. [place] [address] [place] [address] Care Team Providers Care Watcher Automat Long Goods Name Role Phone Unavailable Primary Care Provider Unavailabl e Encounter Details Date Type Department Care Team (Late st Contact Info) Description 03/01/2017 Emergency [facility] [address] [facility] [place] [address] Su Mays MD [address] [address] Social History Tobacco Use Types Packs/Day Years Used Date Smoking Tobacco: Never Assessed Comments Unknown Sex and Gender Information Value Date Recorded Sex Assigned at Not on file Legal Sex Female 9:15 PM REGISTERED OCCUPATIONAL THERAPIST Gender Identity Not on file Sexual Orientation Not on file documented as of this encounter Plan of Treatment Not on file documented as of this encounter Procedures Procedure Name Priority Date/Time Associated Diagnosis Comments URINALYSIS COMPLETE W/RFX TO CULTURE STAT 03/01/2017 7:55 PM REGISTERED OCCUPATIONAL THERAPIST TEST URINE STAT 03/01/2017 7:55 PM REGISTERED OCCUPATIONAL THERAPIST documented in this encounter Results * TEST URINE (03/01/2017 7:55 PM REGISTERED OCCUPATIONAL THERAPIST) PREG TEST NEGATIVE NEGATIVE 03/01/2017 9:40 PM REGISTERED OCCUPATIONAL THERAPIST [facility] SPECIFIC GRAVITY (U) 1.008 03/01/2017 9:40 PM REGISTERED OCCUPATIONAL THERAPIST [facility] Comment: SPECIFIC GRAVITY IS LESS THAN 1.010. MILD INCREASES IN HCG MAY NOT BE DETECTED IN DILUTE URINE. IF CLINICALLY INDICATED, CONSIDER REPEAT TESTING IN 48 TO 72 HOURS WITH A FIRST MORNING SPECIMEN OR A SERUM TEST. URINE SPECIMEN / Unknown 03/01/2017 7:55 PM REGISTERED OCCUPATIONAL THERAPIST 03/01/2017 9:33 PM REGISTERED OCCUPATIONAL THERAPIST us Generic Conversion Md MENDOZA URINE ORDERABLES Final Result [facility] [address] [place] [address], [place] [phone] * URINALYSIS COMPLETE W/RFX TO CULTURE (03/01/2017 7:55 PM REGISTERED OCCUPATIONAL THERAPIST) SPECIMEN TYPE URINE CLEAN CATCH 03/01/2017 9:33 PM [facility] COLOR (U) STRAW 03/01/2017 9:41 PM [facility] TRANSPARENCY CLEAR 03/01/2017 9:41 PM [facility] SPECIFIC GRAVITY (U) 1.008 1.002 - 1.035 03/01/2017 9:41 PM [facility] U PH 7.0 5.0 - 9.0 03/01/2017 9:41 PM [facility] LEUKOCYTES (U) NEGATIVE NEGATIVE 03/01/2017 9:41 PM [facility] NITRITES NEGATIVE NEGATIVE 03/01/2017 9:41 PM [facility] PROTEIN (U) NEGATIVE NEGATIVE 03/01/2017 9:41 PM [facility] URINE GLUCOSE NEGATIVE NEGATIVE 03/01/2017 9:41 PM [facility] KETONES MG/DL (U) NEGATIVE NEGATIVE 03/01/2017 9:41 PM [facility] UROBILINOGEN < 2.0 0 - 1 EU/DL 03/01/2017 9:41 PM [facility] BILIRUBIN (U) NEGATIVE NEGATIVE 03/01/2017 9:41 PM [facility] BLOOD (U) NEGATIVE NEGATIVE 03/01/2017 9:41 PM [facility] CULTURE & SENSITIVITY INDICATED? CULTURE IS NOT INDICATED 03/01/2017 9:41 PM [facility] WBC/HPF 0-5 /HPF 03/01/2017 9:41 PM [facility] RBC/HPF 0-3 /HPF 03/01/2017 9:41 PM [facility] BACTERIA (U) RARE /HPF 03/01/2017 9:41 PM [facility] SQUAMOUS EPITHELIALS MODERATE 03/01/2017 9:41 PM [facility] 03/01/2017 7:55 PM REGISTERED OCCUPATIONAL THERAPIST 03/01/2017 9:33 PM [facility] us Generic Conversion Md MENDOZA URINE ORDERABLES Final Result [facility] [address] [place] [address], [place] [phone] documented in this encounter Visit Diagnoses Diagnosis Cyst of ovary Other and unspecified ovarian cyst documented in this encounter
--- OUTSIDE RECORDS SUMMARY | 2024-03-20 16:41 | XMS_ITS | Encounter Summary ---
Author Organization [facility] Address [address] [place] [address]. [place] [address] [place] [address] Care Team Providers Care Local Government Legislator Name Role Phone Unavailable Primary Care Provider Unavailabl e Encounter Details Date Type Department Care Team (Late st Contact Info) Description 02/15/2017 Orders [place] [address] , Generic Conversion, Social History Tobacco Use Types Packs/Day Years Used Date Smoking Tobacco: Never Assessed Comments Unknown Sex and Gender Information Value Date Recorded Sex Assigned at Not on file Legal Sex Female 9:15 PM SERVICE CLERK Gender Identity Not on file Sexual Orientation Not on file documented as of this encounter Plan of Treatment Not on file documented as of this encounter Procedures Procedure Name Priority Date/Time Associated Diagnosis Comments CBC W/DIFF AUTOMATED STAT 02/15/2017 3:02 PM SERVICE CLERK documented in this encounter Results * (ABNORMAL) CBC W/DIFF AUTOMATED (02/15/2017 3:02 PM SERVICE CLERK) WBC 5.1 4.0 - 10.8 x10'3/uL 02/15/2017 3:38 PM SERVICE CLERK [facility] RBC 2.92(L) 4.10 - 5.40 x10'6/uL 02/15/2017 3:38 PM SERVICE CLERK [facility] HGB 9.7(L) 12.0 - 16.0 G/DL 02/15/2017 3:38 PM SERVICE CLERK [facility] HCT 27.7(L) 36.0 - 47.0 % 02/15/2017 3:[address] [facility] MCV 94.9 78.0 - 100.0 FL 02/15/2017 3:[address] [facility] MCH 33.2(H) 27.0 - 31.0 PG 02/15/2017 3:[address] [facility] MCHC 35.0 33.0 - 36.0 G/DL 02/15/2017 3:[address] [facility] RDW 12.8 11.5 - 14.5 % 02/15/2017 3:[address] [facility] PLT 57(L) 150 - 350 x10'3/uL 02/15/2017 3:[address] [facility] MPV 11.8(H) 7.4 - 10.4 FL 02/15/2017 3:[address] [facility] ABS. NEUTROPHILS TOTAL 2.74 1.60 - 8.30 x10'3/uL 02/15/2017 3:[address] [facility] ABS. LYMPHOCYTES 1.05 0.80 - 4.70 x10'3/uL 02/15/2017 3:[address] [facility] ABS. MONOCYTES 0.45 0.00 - 1.50 x10'3/uL 02/15/2017 3:[address] [facility] ABS. EOSINOPHILS 0.74(H) 0.00 - 0.40 x10'3/uL 02/15/2017 3:[address] [facility] ABS. BASOPHILS 0.02 0.00 - 0.20 x10'3/uL 02/15/2017 3:[address] [facility] ABS. IMMATURE GRANULOCYTES 0.06(H) 0.00 - 0.03 x10'3/uL 02/15/2017 3:[address] [facility] ABS. NUCLEATED RBC'S 0.00 0.0 x10'3/uL 02/15/2017 3:[address] [facility] PLASMA SPECIMEN / Unknown 02/15/2017 3:02 PM SERVICE CLERK 02/15/2017 3:03 PM SERVICE CLERK us Generic Conversion [facility] Final R esult [facility] [address] [place] [address], [id number] documented in this encounter Visit Diagnoses Not on filedocumented in this encounter
--- OUTSIDE RECORDS SUMMARY | 2024-03-20 16:41 | XMS_ITS | Encounter Summary ---
Author Organization [facility] Address [address] [place] [address]. [place], [place] [id number] [place] [address] Care Team Providers Care Interceptor Operator Name Role Phone Ashley ZUNIGA MD, Hermes Perez Primary Care Provid er Encounter Details Date Type Department Care Team (Latest Contact Info) Description 04/19/2017 Abstract [facility] Social History Tobacco Use Types Packs/Day Years Used Date Smoking Tobacco: Never Assessed Comments Unknown Sex and Gender Information Value Date Recorded Sex Assigned at Not on file Legal Sex Female 9:15 PM BLACK PICKLER Gender Identity Not on file Sexual Orientation Not on file documented as of this encounter Plan of Treatment Not on file documented as of this encounter Visit Diagnoses Not on filedocumented in this encounter Care Teams Interceptor Operator Relationship Specialty Start Date End Date Hermes Ramirez III, MD [address] [facility] [address] [place] [address] PCP - General FAMILY PRACTICE 06/20/17 documented as of this encounter
--- OUTSIDE RECORDS SUMMARY | 2024-03-20 16:42 | XMS_ITS | Encounter Summary ---
Author Organization [facility] Address [address] [place] [address]. [place] [address] [place] [address] Care Team Providers Care Nuclear Weapons Custodian Name Role Phone Ashley ZUNIGA MD, Hermes Perez Primary Care Provid er Encounter Details Date Type Department Care Team (Latest Contact Info) Description 01/18/2017 Abstract [facility] Lazara Case MD Social History Tobacco Use Types Packs/Day Years Used Date Smoking Tobacco: Never Assessed Comments Unknown Sex and Gender Information Value Date Recorded Sex Assigned at Not on file Legal Sex Female 9:15 PM NUTRITION SERVICES ASSOCIATE Gender Identity Not on file Sexual [...] on filedocumented in this encounter Care Teams Nuclear Weapons Custodian Relationship Specialty Start Date End Date Hermes Ramirez III, MD [address] [facility] [address] [place] [address] PCP - General FAMILY PRACTICE 06/20/17 documented as of this encounter
--- OUTSIDE RECORDS SUMMARY | 2024-03-20 16:42 | XMS_ITS | Encounter Summary ---
Author Organization [facility] Address [address] [place] [address]. [place] [address] [place] [address] Care Team Providers Care Timekeeper Name Role Phone Ashley ZUNIGA MD, Hermes Perez Primary Care Provid er Encounter Details Date Type Department Care Team (Late st Contact Info) Description 01/02/2017 Abstract [facility] [address] [place] [address] Ziyad Hu MD [address] [place] [id number] Social History Tobacco Use Types Packs/Day Years Used Date Smoking Tobacco: Never Assessed Comments Unknown Sex and Gender Information Value Date Recorded Sex Assigned at Not on file Legal Sex Female 9:15 PM BLACK STUDIES PROFESSOR Gender Identity Not on file Sexual Orientation Not on file documented as of this encounter Plan of Treatment Not on file documented as of this encounter Visit Diagnoses Diagnosis Headache documented in this encounter Care Teams Timekeeper Relationship Specialty Start Date End Date Hermes Ramirez III, MD [address] [facility] [address] [place] [address] PCP - General FAMILY PRACTICE 06/20/17 documented as of this encounter
--- OUTSIDE RECORDS SUMMARY | 2024-03-20 16:42 | XMS_ITS | Encounter Summary ---
Author Organization [facility] Address [address] [place] [address]. [place], [place] [address] [place] [address] Care Team Providers Care Lathe Turner Name Role Phone Ashley ZUNIGA MD, Hermes Perez Primary Care Provid er Encounter Details Date Type Department Care Team (Latest Contact Info) Description 01/14/2017 Abstract [facility] Social History Tobacco Use Types Packs/Day Years Used Date Smoking Tobacco: Never Assessed Comments Unknown Sex and Gender Information Value Date Recorded Sex Assigned at Not on file Legal Sex Female 9:15 PM FLOUR DISTRIBUTOR Gender Identity Not on file Sexual Orientation Not on file documented as of this encounter Plan of Treatment Not on file documented as of this encounter Visit Diagnoses Not on filedocumented in this encounter Care Teams Lathe Turner Relationship Specialty Start Date End Date Hermes Ramirez III, MD [address] [facility] [address] [place] [address] PCP - General FAMILY PRACTICE 06/20/17 documented as of this encounter
--- OUTSIDE RECORDS SUMMARY | 2024-03-20 16:42 | XMS_ITS | Encounter Summary ---
Author Organization [facility] Address [address] [place] [address]. [place] [address] [place] [address] Care Team Providers Care Microbiology Soil Scientist Name Role Phone Unavailable Primary Care Provider Unavailabl e Encounter Details Date Type Department Care Team (Late st Contact Info) Description 02/14/2017 Orders [place] [address] , Generic Conversion, Social History Tobacco Use Types Packs/Day Years Used Date Smoking Tobacco: Never Assessed Comments Unknown Sex and Gender Information Value Date Recorded Sex Assigned at Not on file Legal Sex Female 9:15 PM MANAGER MUTUAL FUND Gender Identity Not on file Sexual Orientation Not on file documented as of this encounter Plan of Treatment Not on file documented as of this encounter Procedures Procedure Name Priority Date/Time Associated Diagnosis Comments URINE BACTERIA CULTURE Nurse Collected Priority 02/14/2017 4:04 PM MANAGER MUTUAL FUND documented in this encounter Results * CULTURE URINE (02/14/2017 4:04 PM MANAGER MUTUAL FUND) SPEC DESCRIPTION URINE 02/14/2017 4:04 PM MANAGER MUTUAL FUND [facility] SPECIAL REQUESTS NO SPECIAL REQUEST 02/14/2017 4:04 PM MANAGER MUTUAL FUND [facility] CULTURE RESULT FEW CONTAMINANTS 01/19 11:12 PM MANAGER MUTUAL FUND [facility] URINE SPECIMEN / Unknown 02/14/2017 4:04 PM MANAGER MUTUAL FUND 02/14/2017 4:19 PM MANAGER MUTUAL FUND Comment:URINE CLEAN CATCH us Generic Conversion Md [facility] - GENERAL ORDERABLES Final Result [facility] [address] [place] [address], [id number] documented in this encounter Visit Diagnoses Not on filedocumented in this encounter
--- OUTSIDE RECORDS SUMMARY | 2024-03-20 16:42 | XMS_ITS | Encounter Summary ---
Author Organization [facility] Address [address] [place] [address]. [place] [address] [place] [address] Care Team Providers Care Industrial Psychology Professor Name Role Phone Unavailable Primary Care Provider Unavailabl e Encounter Details Date Type Department Care Team (Late st Contact Info) Description 02/14/2017 Orders Only KAYE [place] [address] , Generic Conversion, Social History Tobacco Use Types Packs/Day Years Used Date Smoking Tobacco: Never Assessed Comments Unknown Sex and Gender Information Value Date Recorded Sex Assigned at Not on file Legal Sex Female 9:15 PM DATA SCIENCES DIRECTOR Gender Identity Not on file Sexual Orientation Not on file documented as of this encounter Plan of Treatment Not on file documented as of this encounter Procedures Procedure Name Priority Date/Time Associated Diagnosis Comments TEST URINE Nurse Collected Priority 02/14/2017 4:04 PM DATA SCIENCES DIRECTOR documented in this encounter Results * TEST URINE (02/14/2017 4:04 PM DATA SCIENCES DIRECTOR) PREG TEST NEGATIVE 02/14/2017 4:16 PM DATA SCIENCES DIRECTOR [facility] URINE SPECIMEN / Unknown 02/14/2017 4:04 PM DATA SCIENCES DIRECTOR 02/14/2017 4:11 PM DATA SCIENCES DIRECTOR us Generic Conversion Md [facility] URINE ORDERABLES Final Result [facility] [address] [place] [address], [id number] documented in this encounter Visit Diagnoses Not on filedocumented in this encounter
--- OUTSIDE RECORDS SUMMARY | 2024-03-20 16:42 | XMS_ITS | Encounter Summary ---
Author Organization [facility] Address [address] [place] [address]. [place] [address] [place] [address] Care Team Providers Care Coin Box Inspector Name Role Phone Unavailable Primary Care Provider Unavailabl e Encounter Details Date Type Department Care Team (Late st Contact Info) Description 01/04/2017 Emergency [facility] [address] [facility] [place] [address] Su Mays MD [address] [address] Social History Tobacco Use Types Packs/Day Years Used Date Smoking Tobacco: Never Assessed Comments Unknown Sex and Gender Information Value Date Recorded Sex Assigned at Not on file Legal Sex Female 9:15 PM EDUCATIONAL INSTITUTION PRESIDENT Gender Identity Not on file Sexual Orientation Not on file documented as of this encounter Plan of Treatment Not on file documented as of this encounter Visit Diagnoses Diagnosis Migraine without status migrainosus, not intractable Migraine, unspecified, without mention of intractable migraine without mention of status migrainosus documented in this encounter
--- OUTSIDE RECORDS SUMMARY | 2024-03-20 16:42 | XMS_ITS | Encounter Summary ---
Author Organization [facility] Address [address] [place] [address]. [place] [address] [place] [address] Care Team Providers Care Ladies' Hat Trimmer Name Role Phone Unavailable Primary Care Provider Unavailabl e Encounter Details Date Type Department Care Team (Late st Contact Info) Description 02/14/2017 Orders Only [place] [address] , Generic Conversion, Social History Tobacco Use Types Packs/Day Years Used Date Smoking Tobacco: Never Assessed Comments Unknown Sex and Gender Information Value Date Recorded Sex Assigned at Not on file Legal Sex Female 9:15 PM LENS EXAMINER Gender Identity Not on file Sexual Orientation Not on file documented as of this encounter Plan of Treatment Not on file documented as of this encounter Procedures Procedure Name Priority Date/Time Associated Diagnosis Comments URINALYSIS Nurse Collected Priority 02/14/2017 4:04 PM LENS EXAMINER documented in this encounter Results * URINALYSIS (02/14/2017 4:04 PM LENS EXAMINER) COLOR (U) LIGHT YELLOW 02/14/2017 4:18 PM LENS EXAMINER [facility] TRANSPARENCY CLEAR 02/14/2017 4:18 PM LENS EXAMINER [facility] SPECIFIC GRAVITY (U) 1.010 1.002 - 1.035 02/14/2017 4:18 PM LENS EXAMINER [facility] U PH 5.0 5 - 8 02/14/2017 4:18 PM LENS EXAMINER [facility] PROTEIN (U) NEGATIVE NEGATIVE 02/14/2017 4:18 PM [facility] URINE GLUCOSE NEGATIVE NEGATIVE MG/DL 02/14/2017 4:18 PM [facility] KETONES MG/DL (U) NEGATIVE NEGATIVE 02/14/2017 4:18 PM [facility] BILIRUBIN (U) NEGATIVE NEGATIVE 02/14/2017 4:18 PM [facility] BLOOD (U) NEGATIVE NEGATIVE 02/14/2017 4:18 PM [facility] NITRITES NEGATIVE NEGATIVE 02/14/2017 4:18 PM [facility] UROBILINOGEN NORMAL 0 - 1 EU/DL 02/14/2017 4:18 PM [facility] LEUKOCYTES (U) NEGATIVE NEGATIVE 02/14/2017 4:18 PM [facility] RBC/HPF <1 /HPF 02/14/2017 4:18 PM [facility] WBC/HPF <1 /HPF 02/14/2017 4:18 PM [facility] BACTERIA (U) NONE /HPF 02/14/2017 4:18 PM [facility] SQUAMOUS EPITHELIALS 4 02/14/2017 4:18 PM [facility] URINE SPECIMEN / Unknown 02/14/2017 4:04 PM LENS EXAMINER 02/14/2017 4:11 PM LENS EXAMINER us Generic Conversion Md [facility] URINE ORDERABLES Final Result [facility] [address] [place] [address], [id number] documented in this encounter Visit Diagnoses Not on filedocumented in this encounter
--- OUTSIDE RECORDS SUMMARY | 2024-03-20 16:42 | XMS_ITS | Encounter Summary ---
Author Organization [facility] Address [address] [place] [address]. [place], [place] [address] [place] [address] Care Team Providers Care Command Center Officer Name Role Phone Unavailable Primary Care Provider Unavailabl e Encounter Details Date Type Department Care Team (Late st Contact Info) Description 02/15/2017 Emergency [facility] [address] [place] [address] Social History Tobacco Use Types Packs/Day Years Used Date Smoking Tobacco: Never Assessed Comments Unknown Sex and Gender Information Value Date Recorded Sex Assigned at Not on file Legal Sex Female 9:15 PM COMPOSING MACHINE OPERATOR Gender Identity Not on file Sexual Orientation Not on file documented as of this encounter Plan of Treatment Not on file documented as of this encounter Visit Diagnoses Diagnosis Right lower quadrant pain Abdominal pain, right lower quadrant documented in this encounter
--- OUTSIDE RECORDS SUMMARY | 2024-03-20 16:42 | XMS_ITS | Encounter Summary ---
Author Organization [facility] Address [address] [place] [address]. [place] [address] [place] [address] Care Team Providers Care Food And Beverage Attendant Name Role Phone Unavailable Primary Care Provider Unavailabl e Encounter Details Date Type Department Care Team (Late st Contact Info) Description 02/14/2017 Orders [place] [address] , Generic Conversion, Social History Tobacco Use Types Packs/Day Years Used Date Smoking Tobacco: Never Assessed Comments Unknown Sex and Gender Information Value Date Recorded Sex Assigned at Not on file Legal Sex Female 9:15 PM BIAS CUTTING MACHINE OPERATOR Gender Identity Not on file Sexual Orientation Not on file documented as of this encounter Plan of Treatment Not on file documented as of this encounter Procedures Procedure Name Priority Date/Time Associated Diagnosis Comments CBC W/DIFF AUTOMATED STAT 02/14/2017 5:10 PM BIAS CUTTING MACHINE OPERATOR documented in this encounter Results * (ABNORMAL) CBC W/DIFF AUTOMATED (02/14/2017 5:10 PM BIAS CUTTING MACHINE OPERATOR) WBC 5.3 4.0 - 10.8 x10'3/uL 02/14/2017 5:25 PM BIAS CUTTING MACHINE OPERATOR [facility] RBC 3.31(L) 4.10 - 5.40 x10'6/uL 02/14/2017 5:25 PM BIAS CUTTING MACHINE OPERATOR [facility] HGB 11.0(L) 12.0 - 16.0 G/DL 02/14/2017 5:25 PM BIAS CUTTING MACHINE OPERATOR [facility] HCT 31.6(L) 36.0 - 47.0 % 02/14/2017 5:25 PM [facility] MCV 95.5 78.0 - 100.0 FL 02/14/2017 5:25 PM [facility] MCH 33.2(H) 27.0 - 31.0 PG 02/14/2017 5:25 PM [facility] MCHC 34.8 33.0 - 36.0 G/DL 02/14/2017 5:25 PM [facility] RDW 12.7 11.5 - 14.5 % 02/14/2017 5:25 PM [facility] PLT 70(L) 150 - 350 x10'3/uL 02/14/2017 5:25 PM [facility] MPV 11.9(H) 7.4 - 10.4 FL 02/14/2017 5:25 PM [facility] ABS. NEUTROPHILS TOTAL 2.97 1.60 - 8.30 x10'3/uL 02/14/2017 5:25 PM [facility] ABS. LYMPHOCYTES 1.14 0.80 - 4.70 x10'3/uL 02/14/2017 5:25 PM [facility] ABS. MONOCYTES 0.33 0.00 - 1.50 x10'3/uL 02/14/2017 5:25 PM [facility] ABS. EOSINOPHILS 0.80(H) 0.00 - 0.40 x10'3/uL 02/14/2017 5:25 PM [facility] ABS. BASOPHILS 0.01 0.00 - 0.20 x10'3/uL 02/14/2017 5:25 PM [facility] ABS. IMMATURE GRANULOCYTES 0.02 0.00 - 0.03 x10'3/uL 02/14/2017 5:25 PM [facility] ABS. NUCLEATED RBC'S 0.00 0.0 x10'3/uL 02/14/2017 5:25 PM [facility] PLASMA SPECIMEN / Unknown 02/14/2017 5:10 PM BIAS CUTTING MACHINE OPERATOR 02/14/2017 5:12 PM BIAS CUTTING MACHINE OPERATOR us Generic Conversion Md [facility] Final R esult Performing Organization Address City/State/[facility] Co de Phone Number [facility] [address] [place] [address], [id number] documented in this encounter Visit Diagnoses Not on filedocumented in this encounter
--- OUTSIDE RECORDS SUMMARY | 2024-03-20 16:42 | XMS_ITS | Encounter Summary ---
Author Organization [facility] Address [address] [place] [address]. [place], [place] [address] [place] [address] Care Team Providers Care Senior Portfolio Analyst Name Role Phone Ashley ZUNIGA MD, Hermes Perez Primary Care Provid er Encounter Details Date Type Department Care Team (Latest Contact Info) Description 02/06/2017 Abstract [facility] Lazara Case MD Social History Tobacco Use Types Packs/Day Years Used Date Smoking Tobacco: Never Assessed Comments Unknown Sex and Gender Information Value Date Recorded Sex Assigned at Not on file Legal Sex Female 9:15 PM STUNT DRIVER Gender Identity Not on file Sexual Orientation Not on file documented as of this encounter Last Filed Vital Signs Vital Sign Reading Time Taken Comments Blood Pressure 132/84 02/06/2017 1:18 PM STUNT DRIVER Pulse - - Temperature - - Respiratory Rate - - Oxygen Saturation - - Inhaled Oxygen Concentration - - Weight 66.2 kg (146 lb) 02/06/2017 1:18 PM STUNT DRIVER Height 157.5 cm (5' 2 ) 02/06/2017 1:18 PM STUNT DRIVER Body Mass Index 26.7 02/06/2017 1:18 PM STUNT DRIVER documented in this encounter Plan of Treatment Not on file documented as of this encounter Visit Diagnoses Not on filedocumented in this encounter Care Teams Senior Portfolio Analyst Relationship Specialty Start Date End Date Hermes Ramirez III, MD [address] [facility] [address] [place] [address] PCP - General FAMILY PRACTICE 06/20/17 documented as of this encounter
--- OUTSIDE RECORDS SUMMARY | 2024-03-20 16:42 | XMS_ITS | Encounter Summary ---
Author Organization [facility] Address [address] [place] [address]. [place], [place] [address] [place] [address] Care Team Providers Care Floriculturist Name Role Phone Unavailable Primary Care Provider Unavailabl e Encounter Details Date Type Department Care Team (Late st Contact Info) Description 01/09/2017 Emergency [facility] [address] [place] [address] Social History Tobacco Use Types Packs/Day Years Used Date Smoking Tobacco: Never Assessed Comments Unknown Sex and Gender Information Value Date Recorded Sex Assigned at Not on file Legal Sex Female 9:15 PM LICENSING DIRECTOR Gender Identity Not on file Sexual Orientation Not on file documented as of this encounter Plan of Treatment Not on file documented as of this encounter Visit Diagnoses Diagnosis Diarrhea documented in this encounter
--- OUTSIDE RECORDS SUMMARY | 2024-03-20 16:42 | XMS_ITS | Encounter Summary ---
Author Organization [facility] Address [address] [place] [address]. [place] [address] [place] [address] Care Team Providers Care Patient Safety Officer Name Role Phone Unavailable Primary Care Provider Unavailabl e Encounter Details Date Type Department Care Team (Late st Contact Info) Description 01/09/2017 Orders Only [place] [address] , Generic Conversion, Social History Tobacco Use Types Packs/Day Years Used Date Smoking Tobacco: Never Assessed Comments Unknown Sex and Gender Information Value Date Recorded Sex Assigned at Not on file Legal Sex Female 9:15 PM LOG PEELER Gender Identity Not on file Sexual Orientation [...] - 2.0 MMOL/L 01/09/2017 3:54 PM CDT [facility] PLASMA SPECIMEN / Unknown 01/09/2017 4:32 PM CDT 01/09/2017 3:33 PM CDT us Generic Conversion Md [facility] Final R esult [facility] [address] [place] [address], [place] [phone] [id number] documented in this encounter Visit Diagnoses Not on filedocumented in this encounter
--- OUTSIDE RECORDS SUMMARY | 2024-03-20 16:42 | XMS_ITS | Encounter Summary ---
Author Organization [facility] Address [address] [place] [address]. [place] [address] [place] [address] Care Team Providers Care Engineering Production Worker Name Role Phone Ashley ZUNIGA MD, Hermes Perez Primary Care Provid er Encounter Details Date Type Department Care Team (Late st Contact Info) Description 02/03/2017 Abstract [facility] [address] [place] [address] Ziyad Hu MD [address] [place] [address] [id number] Social History Tobacco Use Types Packs/Day Years Used Date Smoking Tobacco: Never Assessed Comments Unknown Sex and Gender Information Value Date Recorded Sex Assigned at Not on file Legal Sex Female 9:15 PM ROLLER MILL TENDER Gender Identity Not on file Sexual Orientation Not on file documented as of this encounter Plan of Treatment Not on file documented as of this encounter Visit Diagnoses Diagnosis Right lower quadrant pain Abdominal pain, right lower quadrant documented in this encounter Care Teams Engineering Production Worker Relationship Specialty Start Date End Date Hermes Ramirez III, MD [address] [facility] [address] [place] [address] PCP - General FAMILY PRACTICE 06/20/17 documented as of this encounter
--- OUTSIDE RECORDS SUMMARY | 2024-03-20 16:42 | XMS_ITS | Encounter Summary ---
Author Organization [facility] Address [address] [place] [address]. [place] [address] [place] [address] Care Team Providers Care Shoe Trimmer Name Role Phone Unavailable Primary Care Provider Unavailabl e Encounter Details Date Type Department Care Team (Late st Contact Info) Description 01/09/2017 Orders [place] [address] , Generic Conversion, Social History Tobacco Use Types Packs/Day Years Used Date Smoking Tobacco: Never Assessed Comments Unknown Sex and Gender Information Value Date Recorded Sex Assigned at Not on file Legal Sex Female 9:15 PM DEFECT REPAIRER GLASSWARE Gender Identity Not on file Sexual Orientation [...] - 147 MMOL/L 01/09/2017 3:57 PM CDT [facility] POTASSIUM S/P/B 4.9 3.5 - 5.0 MMOL/L 01/09/2017 3:57 PM CDT [facility] CHLORIDE S/P/B 114(H) 98 - 107 MMOL/L 01/09/2017 3:57 PM CDT [facility] CALCIUM S/P/B 8.6 8.4 - 10.2 MG/DL 01/09/2017 3:57 PM CDT [facility] CO2 20.1(L) 22 - 29 MMOL/L 01/09/2017 3:57 PM CDT [facility] GLUCOSE 86 70 - 109 MG/DL 01/09/2017 3:57 PM CDT [facility] BUN 26(H) 7 - 19 MG/DL 01/09/2017 3:57 PM CDT [facility] CREATININE S/P/B 1.94(H) 0.60 - 1.10 MG/DL 01/09/2017 3:57 PM CDT [facility] OSMOLALITY (CALC) 285 01/09/2017 3:57 PM CDT [facility] ANION GAP 7 MMOL/L 01/09/2017 3:57 PM CDT [facility] PLASMA SPECIMEN / Unknown 01/09/2017 4:32 PM CDT 01/09/2017 3:33 PM CDT us Generic Conversion Md [facility] Final R esult [facility] [address] [place] [address], [id number] documented in this encounter Visit Diagnoses Not on filedocumented in this encounter
--- OUTSIDE RECORDS SUMMARY | 2024-03-20 16:42 | XMS_ITS | Encounter Summary ---
Author Organization [facility] Address [address] [place] [address]. [place], [place] [address] [place] [address] Care Team Providers Care Cementer Name Role Phone Ashley ZUNIGA MD, Hermes Perez Primary Care Provid er Encounter Details Date Type Department Care Team (Latest Contact Info) Description 01/29/2017 Abstract [facility] Social History Tobacco Use Types Packs/Day Years Used Date Smoking Tobacco: Never Assessed Comments Unknown Sex and Gender Information Value Date Recorded Sex Assigned at Not on file Legal Sex Female 9:15 PM DIRECTOR PHARMACOLOGY Gender Identity Not on file Sexual Orientation Not on file documented as of this encounter Plan of Treatment Not on file documented as of this encounter Visit Diagnoses Not on filedocumented in this encounter Care Teams Cementer Relationship Specialty Start Date End Date Hermes Ramirez III, MD [address] [facility] [address] [place] [address] PCP - General FAMILY PRACTICE 06/20/17 documented as of this encounter
--- OUTSIDE RECORDS SUMMARY | 2024-03-20 16:42 | XMS_ITS | Encounter Summary ---
Author Organization [facility] Address [address] [place] [address]. [place] [address] [place] [address] Care Team Providers Care Manager Gallery Name Role Phone Unavailable Primary Care Provider Unavailabl e Encounter Details Date Type Department Care Team (Late st Contact Info) Description 02/14/2017 Orders Only [place] [address] , Generic Conversion, Social History Tobacco Use Types Packs/Day Years Used Date Smoking Tobacco: Never Assessed Comments Unknown Sex and Gender Information Value Date Recorded Sex Assigned at Not on file Legal Sex Female 9:15 PM BDC MANAGER Gender Identity Not on file Sexual Orientation Not on file documented as of this encounter Plan of Treatment Not on file documented as of this encounter Procedures Procedure Name Priority Date/Time Associated Diagnosis Comments BASIC METABOLIC PANEL STAT 02/14/2017 5:10 PM BDC MANAGER documented in this encounter Results * (ABNORMAL) BASIC METABOLIC PANEL (02/14/2017 5:10 PM BDC MANAGER) SODIUM S/P/B 141 135 - 147 MMOL/L 02/14/2017 5:[address] [facility] POTASSIUM S/P/B 4.9 3.5 - 5.0 MMOL/L 02/14/2017 5:[address] [facility] Comment:SLIGHT HEMOLYSIS, RE SULT MAY BE AFFECTED. CHLORIDE S/P/B 115(H) 98 - 107 MMOL/L 02/14/2017 5:[address] [facility] CALCIUM S/P/B 9.1 8.4 - 10.2 MG/DL 02/14/2017 5:[address] [facility] CO2 17.5(L) 22 - 29 MMOL/L 02/14/2017 5:[address] [facility] GLUCOSE 79 70 - 109 MG/DL 02/14/2017 5:[address] [facility] BUN 32(H) 7 - 19 MG/DL 02/14/2017 5:[address] [facility] CREATININE S/P/B 2.10(H) 0.60 - 1.10 MG/DL 02/14/2017 5:[address] [facility] OSMOLALITY (CALC) 287 02/14/2017 5:[address] [facility] ANION GAP 9 MMOL/L 02/14/2017 5:[address] [facility] PLASMA SPECIMEN / Unknown 02/14/2017 5:10 PM BDC MANAGER 02/14/2017 5:12 PM BDC MANAGER us Generic Conversion Md [facility] Final R esult [facility] [address] [place] [address], [id number] documented in this encounter Visit Diagnoses Not on filedocumented in this encounter
--- OUTSIDE RECORDS SUMMARY | 2024-03-20 16:42 | XMS_ITS | Encounter Summary ---
Author Organization [facility] Address [address] [place] [address]. [place] [address] [place] [address] Care Team Providers Care Speech And Language Specialist Name Role Phone Unavailable Primary Care Provider Unavailabl e Encounter Details Date Type Department Care Team (Late st Contact Info) Description 02/14/2017 Emergency [facility] Emergency [address] [place] [address] Bailee Merchant MD [address] [place] [address] Social History Tobacco Use Types Packs/Day Years Used Date Smoking Tobacco: Never Assessed Comments Unknown Sex and Gender Information Value Date Recorded Sex Assigned at Not on file Legal Sex Female 9:15 PM CREATIVE STRATEGIST Gender Identity Not on file Sexual Orientation Not on file documented as of this encounter Plan of Treatment Not on file documented as of this encounter Visit Diagnoses Diagnosis Abdominal pain Abdominal pain, unspecified site documented in this encounter
--- OUTSIDE RECORDS SUMMARY | 2024-03-20 16:42 | XMS_ITS | Encounter Summary ---
Author Organization [facility] Address [address] [place] [address]. [place] [address] [place] [address] Care Team Providers Care Religious Leader Name Role Phone Unavailable Primary Care Provider Unavailabl e Encounter Details Date Type Department Care Team (Late st Contact Info) Description 01/09/2017 Orders [place] [address] , Generic Conversion, Social History Tobacco Use Types Packs/Day Years Used Date Smoking Tobacco: Never Assessed Comments Unknown Sex and Gender Information Value Date Recorded Sex Assigned at Not on file Legal Sex Female 9:15 PM GAMBLING BOX PERSON Gender Identity Not on file Sexual Orientation Not on file documented as of this encounter Plan of Treatment Not on file documented as of this encounter Procedures Procedure Name Priority Date/Time Associated Diagnosis Comments AMYLASE STAT 01/09/2017 4:32 PM CDT documented in this encounter Results * AMYLASE (01/09/2017 4:32 PM CDT) AMYLASE S/P/B 51 25 - 125 UNITS/L 01/09/2017 3:58 PM CDT [facility] SERUM OR PLASMA SPECIMEN / Unknown 01/09/2017 4:32 PM CDT 01/09/2017 3:33 PM CDT us Generic Conversion Md [facility] Final R esult [facility] [address] [place], [place] [address] [phone] [id number] documented in this encounter Visit Diagnoses Not on filedocumented in this encounter
--- OUTSIDE RECORDS SUMMARY | 2024-03-20 16:42 | XMS_ITS | Encounter Summary ---
Author Organization [facility] Address [address] [place] [address]. [place] [address] [place] [address] Care Team Providers Care Film Rental Clerk Name Role Phone Unavailable Primary Care Provider Unavailabl e Encounter Details Date Type Department Care Team (Late st Contact Info) Description 01/09/2017 Orders [place] [address] , Generic Conversion, Social History Tobacco Use Types Packs/Day Years Used Date Smoking Tobacco: Never Assessed Comments Unknown Sex and Gender Information Value Date Recorded Sex Assigned at Not on file Legal Sex Female 9:15 PM COMMUNICATIONS EXECUTIVE Gender Identity Not on file Sexual [...] - 10.8 x10'3/uL 01/09/2017 3:44 PM CDT [facility] RBC 2.94(L) 4.10 - 5.40 x10'6/uL 01/09/2017 3:44 PM CDT [facility] HGB 9.8(L) 12.0 - 16.0 G/DL 01/09/2017 3:44 PM CDT [facility] HCT 29.1(L) 36.0 - 47.0 % 01/09/2017 3:44 PM CDT [facility] MCV 99.0 78.0 - 100.0 FL 01/09/2017 3:44 PM CDT [facility] MCH 33.3(H) 27.0 - 31.0 PG 01/09/2017 3:44 PM CDT [facility] MCHC 33.7 33.0 - 36.0 G/DL 01/09/2017 3:44 PM CDT [facility] RDW 13.3 11.5 - 14.5 % 01/09/2017 3:44 PM CDT [facility] PLT 65(L) 150 - 350 x10'3/uL 01/09/2017 4:08 PM CDT [facility] MPV 10.7(H) 7.4 - 10.4 FL 01/09/2017 4:08 PM CDT [facility] ABS. NEUTROPHILS TOTAL 2.65 1.60 - 8.30 x10'3/uL 01/09/2017 3:45 PM CDT [facility] ABS. LYMPHOCYTES 1.03 0.80 - 4.70 x10'3/uL 01/09/2017 3:45 PM CDT [facility] ABS. MONOCYTES 0.34 0.00 - 1.50 x10'3/uL 01/09/2017 3:45 PM CDT [facility] ABS. EOSINOPHILS 0.42(H) 0.00 - 0.40 x10'3/uL 01/09/2017 3:45 PM CDT [facility] ABS. BASOPHILS 0.01 0.00 - 0.20 x10'3/uL 01/09/2017 3:45 PM CDT [facility] ABS. IMMATURE GRANULOCYTES 0.02 0.00 - 0.03 x10'3/uL 01/09/2017 3:45 PM CDT [facility] ABS. NUCLEATED RBC'S 0.00 0.0 x10'3/uL 01/09/2017 3:45 PM CDT [facility] PLASMA SPECIMEN / Unknown 01/09/2017 4:31 PM CDT 01/09/2017 3:32 PM CDT us Generic Conversion Md [facility] Final R esult [facility] [address] [place] [address], [id number] documented in this encounter Visit Diagnoses Not on filedocumented in this encounter
--- OUTSIDE RECORDS SUMMARY | 2024-03-20 16:42 | XMS_ITS | Encounter Summary ---
Author Organization [facility] Address [address] [place] [address]. 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 [address], [id number] documented in this encounter Visit Diagnoses Not on filedocumented in this encounter
--- OUTSIDE RECORDS SUMMARY | 2024-03-20 16:43 | XMS_ITS | Encounter Summary ---
Author Organization [facility] Address [address] [place] [address]. [place] [address] [place] [address] Care Team Providers Care Migratory Game Bird Biologist Name Role Phone Ashley ZUNIGA MD, Hermes Perez Primary Care Provid er Encounter Details Date Type Department Care Team (Late st Contact Info) Description 12/08/2016 Abstract [facility] Gastroenterology - [place] [address], [id number] [place] [id number] Manpreet Stafford MBBS [address] [phone] Social History Tobacco Use Types Packs/Day Years Used Date Smoking Tobacco: Never Assessed Comments Unknown Sex and Gender Information Value Date Recorded Sex Assigned at Not on file Legal Sex Female 9:15 PM ROW BOSS Gender Identity Not on file Sexual [...] by:Manpreet Stafford M.D. Dec 13 2016 11:22AM ROW BOSS Co-author Electronically signed by:Manpreet Stafford M.D. Dec 13 2016 11:23AM ROW BOSS Author * Generic Conversion MD Evie - [...] has not been helpful. Please advise. # [phone] Manpreet Stafford - 27 Dec 2016 11:39 AM TASK EDITED Please get a KUB x-ray on her with comment on stool load. Latoya Rincon - 28 Dec 2016 9:32 AM TASK EDITED Pt chooses to have x-ray done at [facility]. Order faxed to [phone]. Pt notified she does not need an appt for this, just walk in. Pt verbalized understanding. Plan 1. XR Abdomen KUB and Upright; Status:Active; Requested for:28Dec2016; Perform:Other Radiology; Order Comments:Please note stool load. Fax results to Dr. Stafford [phone]. Thank You!; Due:27Jan2017; Last Updated By:Latoya Rincon; 12/28/2016 9:28:41 AM;Ordered; For:Abdominal pain; Ordered By:Manpreet Stafford; Signatures Electronically signed by : Latoya Rincon R.N.; Dec 28 2016 9:32AM ROW BOSS (Author) * NANY Ramos - 12/08/2016 10:00 [...] age of 12, this was done at [facility]. Her last visit to [facility] was four years ago. She states that [...] appointment to see the hepatology clinic at [facility] next week sometime. Patient had a lab [...] THREE TIMES A DAY AFTER MEALS; Therapy: [id number] to Recorded Rx By: MIGUEL CORONA; Dispense: 30 Days ; #:90 TABS; Refill: 0; BHAVANA = N; Record; Last Updated By:Jennifer Gordon; 12/08/2016 10:43:12 AM Allergies 1. Aspirin TABS Recorded By: Emily Pichardo; 05/19/2010 6:39:28 PM 2. Erythromycin Derivatives Recorded By: Emily Pichardo; 05/19/2010 6:39:28 PM Vitals Recorded: [id number] 10:42AM Heart Rate 84 Systolic 130 Diastolic [...] advised to follow-up with her regular transplant user experience team lead so that they can monitor her Prograf levels. She was advised to bring the report from her transplant user experience team lead. 2. History of reflux esophagitis and EGD suggestive of gastric ulcers and duodenal ulcer. Currentlyon PPI. She was advised to continue PPI. We will follow her up in six months. She was advised to call me if she has any issues in between. 3. Acute kidney injury. She was advised to follow-up with her pelts skinner. Signatures Electronically signed by : Manpreet Stafford M.D.; Dec 13 2016 11:36AM ROW BOSS (Author) * Lazara Lange Md, MD - [...] Latoya Rincon R.N.; Dec 28 2016 9:26AM ROW BOSS (Author) documented in this encounter Miscellaneous Notes * Letter - Lazara Lange Md, MD - 12/08/2016 10:00 AM CDT 02/01/2017 Dear Ms. Browne, Upon reviewing records, we see that you are due and/or overdue for lab work or an ordered test. Please follow-up immediately to complete the order. If you have fulfilled the order at a facility outside of [facility], please bring a copy of theresults to the office at your earliest convenience. Should you have any questions, please contact the office at [phone]. Sincerely, Your Healthcare Team at [facility]. Electronically signed by:Simone Foss Feb 01 2017 10:50AM ROW BOSS documented in this encounter Plan of Treatment Not on file documented as of this encounter Visit Diagnoses Not on filedocumented in this encounter Care Teams Migratory Game Bird Biologist Relationship Specialty Start Date End Date Hermes Ramirez III, MD [address] [place] [phone] PCP - General FAMILY PRACTICE 06/20/17 documented as of this encounter
--- OUTSIDE RECORDS SUMMARY | 2024-03-20 16:43 | XMS_ITS | Encounter Summary ---
Author Organization [facility] Address [address] [place] [address]. 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 Gender Identity Not on file Sexual Orientation Not on file documented as of this encounter Plan of Treatment Not on file documented as of this encounter Procedures Procedure Name Priority Date/Time Associated Diagnosis Comments URINALYSIS Nurse Collected Priority 12/08/2016 5:37 AM CDT documented in this encounter Results * URINALYSIS (12/08/2016 5:37 AM CDT) COLOR (U) STRAW 12/08/2016 4:57 AM CDT [facility] TRANSPARENCY CLEAR 12/08/2016 4:57 AM CDT [facility] SPECIFIC GRAVITY (U) 1.003 1.002 - 1.035 12/08/2016 4:57 AM CDT [facility] U PH 7.0 5 - 8 12/08/2016 4:57 AM CDT [facility] PROTEIN (U) NEGATIVE NEGATIVE 12/08/2016 4:57 AM CDT [facility] URINE GLUCOSE NEGATIVE NEGATIVE MG/DL 12/08/2016 4:57 AM CDT [facility] KETONES MG/DL (U) NEGATIVE NEGATIVE 12/08/2016 4:57 AM CDT [facility] BILIRUBIN (U) NEGATIVE NEGATIVE 12/08/2016 4:57 AM CDT [facility] BLOOD (U) NEGATIVE NEGATIVE 12/08/2016 4:57 AM CDT [facility] NITRITES NEGATIVE NEGATIVE 12/08/2016 4:57 AM CDT [facility] UROBILINOGEN NORMAL 0 - 1 EU/DL 12/08/2016 4:57 AM CDT [facility] LEUKOCYTES (U) NEGATIVE NEGATIVE 12/08/2016 4:57 AM CDT [facility] RBC/HPF NONE /HPF 12/08/2016 4:57 AM CDT [facility] WBC/HPF 1 /HPF 12/08/2016 4:57 AM CDT [facility] BACTERIA (U) NONE /HPF 12/08/2016 4:57 AM CDT [facility] SQUAMOUS EPITHELIALS <1 12/08/2016 4:57 AM CDT [facility] URINE SPECIMEN / Unknown 12/08/2016 5:37 AM CDT 12/08/2016 4:43 AM CDT us Generic Conversion Md [facility] URINE ORDERABLES Final Result [facility] [address] [place] [address], [id number] documented in this encounter Visit Diagnoses Not on filedocumented in this encounter
--- OUTSIDE RECORDS SUMMARY | 2024-03-20 16:43 | XMS_ITS | Encounter Summary ---
Author Organization [facility] Address [address] [place] [address]. [place] [address] [place] [address] Care Team Providers Care Refinery Operator Light Ends Recovery Name Role Phone Unavailable Primary Care Provider Unavailabl e Encounter Details Date Type Department Care Team (Late st Contact Info) Description 12/27/2016 Orders [place] [address] , Generic Conversion, Social History Tobacco Use Types Packs/Day Years Used Date Smoking Tobacco: Never Assessed Comments Unknown Sex and Gender Information Value Date Recorded Sex Assigned at Not on file Legal Sex Female 9:15 PM OFFSET PRINTING PRESSMEN Gender Identity Not on file Sexual Orientation [...] <1 MIU/ML 12/28/19 17 12:36 PM CDT [facility] Comment: <5 IS NEGATIVE 5-25 IS BORDERLINE >25 IS POSITIVE SERUM OR PLASMA SPECIMEN / Unknown 12/27/2016 1:05 PM CDT 12/27/2016 12:06 PM CDT us Generic Conversion Md [facility] Final R esult [facility] [address] [place] [address], [id number] documented in this encounter Visit Diagnoses Not on filedocumented in this encounter
--- OUTSIDE RECORDS SUMMARY | 2024-03-20 16:43 | XMS_ITS | Encounter Summary ---
Author Organization [facility] Address [address] [place] [address]. [place] [address] [place] [address] Care Team Providers Care Production Ski Repairer Name Role Phone Unavailable Primary Care Provider Unavailabl e Encounter Details Date Type Department Care Team (Late st Contact Info) Description 12/27/2016 Orders Only KAYE [place] [address] , Generic Conversion, Social History Tobacco Use Types Packs/Day Years Used Date Smoking Tobacco: Never Assessed Comments Unknown Sex and Gender Information Value Date Recorded Sex Assigned at Not on file Legal Sex Female 9:15 PM TELETYPESETTER Gender Identity Not on file Sexual Orientation [...] - 10.8 x10'3/uL 12/27/2016 12:14 PM CDT [facility] RBC 3.02(L) 4.10 - 5.40 x10'6/uL 12/27/2016 12:14 PM CDT [facility] HGB 10.1(L) 12.0 - 16.0 G/DL 12/27/2016 12:14 PM CDT [facility] HCT 28.8(L) 36.0 - 47.0 % 12/27/2016 12:14 PM CDT [facility] MCV 95.4 78.0 - 100.0 FL 12/27/2016 12:14 PM CDT [facility] MCH 33.4(H) 27.0 - 31.0 PG 12/27/2016 12:14 PM CDT [facility] MCHC 35.1 33.0 - 36.0 G/DL 12/27/2016 12:14 PM CDT [facility] RDW 13.3 11.5 - 14.5 % 12/27/2016 12:14 PM CDT [facility] PLT 55(L) 150 - 350 x10'3/uL 12/27/2016 12:14 PM CDT [facility] MPV 11.5(H) 7.4 - 10.4 FL 12/27/2016 12:14 PM CDT [facility] ABS. NEUTROPHILS TOTAL 1.99 1.60 - 8.30 x10'3/uL 12/27/2016 12:14 PM CDT [facility] ABS. LYMPHOCYTES 0.80 0.80 - 4.70 x10'3/uL 12/27/2016 12:14 PM CDT [facility] ABS. MONOCYTES 0.21 0.00 - 1.50 x10'3/uL 12/27/2016 12:14 PM CDT [facility] ABS. EOSINOPHILS 0.16 0.00 - 0.40 x10'3/uL 12/27/2016 12:14 PM CDT [facility] ABS. BASOPHILS 0.01 0.00 - 0.20 x10'3/uL 12/27/2016 12:14 PM CDT [facility] ABS. IMMATURE GRANULOCYTES 0.01 0.00 - 0.03 x10'3/uL 12/27/2016 12:14 PM CDT [facility] ABS. NUCLEATED RBC'S 0.00 0.0 x10'3/uL 12/27/2016 12:14 PM CDT [facility] PLASMA SPECIMEN / Unknown 12/27/2016 1:05 PM CDT 12/27/2016 12:06 PM CDT us Generic Conversion Md [facility] Final R esult [facility] [address] [place] [address], [id number] documented in this encounter Visit Diagnoses Not on filedocumented in this encounter
--- OUTSIDE RECORDS SUMMARY | 2024-03-20 16:43 | XMS_ITS | Encounter Summary ---
Author Organization [facility] Address [address] [place] [address]. 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 Gender Identity Not on file Sexual Orientation Not on file documented as of this encounter Plan of Treatment Not on file documented as of this encounter Procedures Procedure Name Priority Date/Time Associated Diagnosis Comments URINALYSIS TIMED 12/11/2016 4:08 PM CDT documented in this encounter Results * (ABNORMAL) URINALYSIS (12/11/2016 4:08 PM CDT) COLOR (U) COLORLESS 12/11/2016 3:35 PM CDT [facility] TRANSPARENCY CLEAR 12/11/2016 3:35 PM CDT [facility] SPECIFIC GRAVITY (U) 1.001(L) 1.002 - 1.035 12/11/2016 3:35 PM CDT [facility] U PH 7.0 5 - 8 12/11/2016 3:35 PM CDT [facility] PROTEIN (U) NEGATIVE NEGATIVE 12/11/2016 3:35 PM CDT [facility] URINE GLUCOSE NEGATIVE NEGATIVE MG/DL 12/11/2016 3:35 PM CDT [facility] KETONES MG/DL (U) NEGATIVE NEGATIVE 12/11/2016 3:35 PM CDT [facility] BILIRUBIN (U) NEGATIVE NEGATIVE 12/11/2016 3:35 PM CDT [facility] BLOOD (U) NEGATIVE NEGATIVE 12/11/2016 3:35 PM CDT [facility] NITRITES NEGATIVE NEGATIVE 12/11/2016 3:35 PM CDT [facility] UROBILINOGEN NORMAL 0 - 1 EU/DL 12/11/2016 3:35 PM CDT [facility] LEUKOCYTES (U) NEGATIVE NEGATIVE 12/11/2016 3:35 PM CDT [facility] RBC/HPF NONE /HPF 12/11/2016 3:35 PM CDT [facility] WBC/HPF <1 /HPF 12/11/2016 3:35 PM CDT [facility] BACTERIA (U) PRESENT /HPF 12/11/2016 3:35 PM CDT [facility] SQUAMOUS EPITHELIALS <1 12/11/2016 3:35 PM CDT [facility] URINE SPECIMEN / Unknown 12/11/2016 4:08 PM CDT 12/11/2016 3:15 PM CDT us Generic Conversion Md MEND[facility] URINE ORDERABLES Final Result [facility] [address] [place] [address], [phone] documented in this encounter Visit Diagnoses Not on filedocumented in this encounter
--- OUTSIDE RECORDS SUMMARY | 2024-03-20 16:43 | XMS_ITS | Encounter Summary ---
Author Organization [facility] Address [address] [place] [address]. 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 Gender Identity Not on file Sexual Orientation [...] - 147 MMOL/L 12/27/2016 12:39 PM CDT [facility] POTASSIUM S/P/B 4.0 3.5 - 5.0 MMOL/L 12/27/2016 12:39 PM CDT [facility] CHLORIDE S/P/B 110(H) 98 - 107 MMOL/L 12/27/2016 12:39 PM CDT [facility] CO2 21.5(L) 22 - 29 MMOL/L 12/27/2016 12:39 PM CDT [facility] GLUCOSE 138(H) 70 - 109 MG/DL 12/27/2016 12:39 PM T [facility] BUN 23(H) 7 - 19 MG/DL 12/27/2016 12:39 PM CDT [facility] CREATININE S/P/B 2.18(H) 0.60 - 1.10 MG/DL 12/27/2016 12:39 PM CDT [facility] CALCIUM S/P/B 9.8 8.4 - 10.2 MG/DL 12/27/2016 12:39 PM CDT [facility] BILIRUBIN TOTAL S/P/B 1.1 0.2 - 1.2 MG/DL 12/27/2016 12:39 PM CDT [facility] ALKALINE PHOSPHATASE S/P/B 218(H) 37 - 98 U/L 12/27/2016 12:39 PM CDT [facility] AST 25 5 - 35 U/L 12/27/2016 12:39 PM T [facility] ALT 13 0 - 55 U/L 12/27/2016 12:39 PM T [facility] TOTAL PROTEIN S/P/B 6.3 6.0 - 8.3 G/DL 12/27/2016 12:39 PM CDT [facility] ALBUMIN S/P/B 3.6 3.4 - 4.9 G/DL 12/27/2016 12:39 PM CDT [facility] ANION GAP 8.5 MMOL/L 12/27/2016 12:39 PM T [facility] OSMOLALITY (CALC) 285 MOSM/KG 12/27/2016 12:39 PM T [facility] EGFR NON-AFR. AMER. 26(L) >60 ML/MIN/1.7 3 M2 12/27/2016 12:39 PM CDT [facility] EGFR AFR. AMER. 31(L) >60 ML/MIN/1.7 3 M2 12/27/2016 12:39 PM CDT [facility] PLASMA SPECIMEN / Unknown 12/27/2016 1:05 PM CDT 12/27/2016 12:06 PM CDT us Generic Conversion Md [facility] Final R esult Performing Organization Address City/State/[facility] Co de Phone Number [facility] [address] [place] [address], [phone] documented in this encounter Visit Diagnoses Not on filedocumented in this encounter
--- OUTSIDE RECORDS SUMMARY | 2024-03-20 16:43 | XMS_ITS | Encounter Summary ---
Author Organization [facility] Address [address] [place] [address]. 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 12/11/2016 2:18 PM CDT [facility] PLASMA SPECIMEN / Unknown 12/11/2016 3:44 PM CDT 12/11/2016 2:45 PM CDT us Generic Conversion Md [facility] Final R esult Performing Organization Address City/State/[facility] Co de Phone Number [facility] [address] [place] [address], [phone] documented in this encounter Visit Diagnoses Not on filedocumented in this encounter
--- OUTSIDE RECORDS SUMMARY | 2024-03-20 16:43 | XMS_ITS | Encounter Summary ---
Author Organization [facility] Address [address] [place] [address]. [place] [address] [place] [address] Care Team Providers Care Large Animal Husbandry Technician Name Role Phone Unavailable Primary Care Provider Unavailabl e Encounter Details Date Type Department Care Team (Late st Contact Info) Description 12/08/2016 Orders Only [place] [address] , Generic Conversion, Social History Tobacco Use Types Packs/Day Years Used Date Smoking Tobacco: Never Assessed Comments Unknown Sex and Gender Information Value Date Recorded Sex Assigned at Not on file Legal Sex Female 9:15 PM PROBATE LAWYER Gender Identity Not on file Sexual Orientation [...] - 147 MMOL/L 12/08/2016 3:[address] [facility] POTASSIUM S/P/B 3.9 3.5 - 5.0 MMOL/L 12/08/2016 3:[address] [facility] CHLORIDE S/P/B 107 98 - 107 MMOL/L 12/08/2016 3:[address] [facility] CO2 23.5 22 - 29 MMOL/L 12/08/2016 3:[address] [facility] GLUCOSE 94 70 - 109 MG/DL 12/08/2016 3:[address] [facility] BUN 25(H) 7 - 19 MG/DL 12/08/2016 3:[address] [facility] CREATININE S/P/B 2.15(H) 0.60 - 1.10 MG/DL 12/08/2016 3:[address] [facility] CALCIUM S/P/B 8.8 8.4 - 10.2 MG/DL 12/08/2016 3:[address] [facility] BILIRUBIN TOTAL S/P/B 0.6 0.2 - 1.2 MG/DL 12/08/2016 3:[address] [facility] ALKALINE PHOSPHATASE S/P/B 268(H) 37 - 98 U/L 12/08/2016 3:[address] [facility] AST 25 5 - 35 U/L 12/08/2016 3:[address] [facility] ALT 17 0 - 55 U/L 12/08/2016 3:55 AM [facility] TOTAL PROTEIN S/P/B 5.8(L) 6.0 - 8.3 G/DL 12/08/2016 3:55 AM [facility] ALBUMIN S/P/B 3.3(L) 3.4 - 4.9 G/DL 12/08/2016 3:[address] [facility] ANION GAP 7.5 MMOL/L 12/08/2016 3:[address] [facility] OSMOLALITY (CALC) 280 MOSM/KG 12/08/2016 3:[address] [facility] EGFR NON-AFR. AMER. 26(L) >60 ML/MIN/1.7 3 M2 12/08/2016 3:[address] [facility] EGFR AFR. AMER. 32(L) >60 ML/MIN/1.7 3 M2 12/08/2016 3:[address] [facility] PLASMA SPECIMEN / Unknown 12/08/2016 4:32 AM CDT 12/08/2016 3:34 AM CDT us Generic Conversion Md [facility] Final R esult Performing Organization Address City/State/[facility] Co de Phone Number [facility] [address] [place] [address], [phone] documented in this encounter Visit Diagnoses Not on filedocumented in this encounter
--- OUTSIDE RECORDS SUMMARY | 2024-03-20 16:43 | XMS_ITS | Encounter Summary ---
Author Organization [facility] Address [address] [place] [address]. [place] [address] [place] [address] Care Team Providers Care Formal Wear Rental Clerk Name Role Phone Unavailable Primary Care Provider Unavailabl e Encounter Details Date Type Department Care Team (Late st Contact Info) Description 12/27/2016 Orders [place] [address] , Generic Conversion, Social History Tobacco Use Types Packs/Day Years Used Date Smoking Tobacco: Never Assessed Comments Unknown Sex and Gender Information Value Date Recorded Sex Assigned at Not on file Legal Sex Female 9:15 PM CHEMIST INORGANIC Gender Identity Not on file Sexual Orientation Not on file documented as of this encounter Plan of Treatment Not on file documented as of this encounter Procedures Procedure Name Priority Date/Time Associated Diagnosis Comments URINALYSIS TIMED 12/27/2016 12:52 PM CDT documented in this encounter Results * URINALYSIS (12/27/2016 12:52 PM CDT) COLOR (U) YELLOW 12/27/2016 12:14 PM CDT [facility] TRANSPARENCY CLEAR 12/27/2016 12:14 PM CDT [facility] SPECIFIC GRAVITY (U) 1.011 1.002 - 1.035 12/27/2016 12:14 PM CDT [facility] U PH 7.0 5 - 8 12/27/2016 12:14 PM CDT [facility] PROTEIN (U) NEGATIVE NEGATIVE 12/27/2016 12:14 PM CDT [facility] URINE GLUCOSE NEGATIVE NEGATIVE MG/DL 12/27/2016 12:14 PM CDT [facility] KETONES MG/DL (U) NEGATIVE NEGATIVE 12/27/2016 12:14 PM CDT [facility] BILIRUBIN (U) NEGATIVE NEGATIVE 12/27/2016 12:14 PM CDT [facility] BLOOD (U) NEGATIVE NEGATIVE 12/27/2016 12:14 PM CDT [facility] NITRITES NEGATIVE NEGATIVE 12/27/2016 12:14 PM CDT [facility] UROBILINOGEN NORMAL 0 - 1 EU/DL 12/27/2016 12:14 PM CDT [facility] LEUKOCYTES (U) NEGATIVE NEGATIVE 12/27/2016 12:14 PM CDT [facility] RBC/HPF <1 /HPF 12/27/2016 12:14 PM CDT [facility] WBC/HPF 1 /HPF 12/27/2016 12:14 PM CDT [facility] BACTERIA (U) PRESENT /HPF 12/27/2016 12:14 PM CDT [facility] SQUAMOUS EPITHELIALS 4 12/27/2016 12:14 PM CDT [facility] URINE SPECIMEN / Unknown 12/27/2016 12:52 PM CDT 12/27/2016 12:04 PM CDT us Generic Conversion Md [facility] URINE ORDERABLES Final Result [facility] [address] [place] [address], [phone] documented in this encounter Visit Diagnoses Not on filedocumented in this encounter
--- OUTSIDE RECORDS SUMMARY | 2024-03-20 16:43 | XMS_ITS | Encounter Summary ---
Author Organization [facility] Address [address] [place] [address]. [place] [address] [place] [address] Care Team Providers Care Filling Winder Name Role Phone Unavailable Primary Care Provider Unavailabl e Encounter Details Date Type Department Care Team (Late st Contact Info) Description 12/08/2016 Orders [place] [address] , Generic Conversion, Social History Tobacco Use Types Packs/Day Years Used Date Smoking Tobacco: Never Assessed Comments Unknown Sex and Gender Information Value Date Recorded Sex Assigned at Not on file Legal Sex Female 9:15 PM SPENT GRAIN DRYER Gender Identity Not on file Sexual Orientation Not on file documented as of this encounter Plan of Treatment Not on file documented as of this encounter Procedures Procedure Name Priority Date/Time Associated Diagnosis Comments D-DIMER, QUANTITATIVE STAT 12/08/2016 4:32 AM CDT documented in this encounter Results * (ABNORMAL) D-DIMER, QUANTITATIVE (12/08/2016 4:32 AM CDT) D-DIMER 2.03(H) <0.50 MCG/ML FEU 12/08/2016 3:53 AM CDT [facility] EXCLUSION STATEMENT CUT-OFF FOR EXCLUSION OF VENOUS THROMBOEMBOLISM AND PULMONARY EMBOLISM IS LESS THAN 0.5 mcg/ml FEU. 12/08/2016 3:27 AM CDT [facility] PLASMA SPECIMEN / Unknown 12/08/2016 4:32 AM CDT 12/08/2016 3:34 AM CDT us Generic Conversion Md [facility] Final R esult Performing Organization Address City/State/[facility] Co de Phone Number [facility] [address] [place] [address], [phone] documented in this encounter Visit Diagnoses Not on filedocumented in this encounter
--- OUTSIDE RECORDS SUMMARY | 2024-03-20 16:43 | XMS_ITS | Encounter Summary ---
Author Organization [facility] Address [address] [place] [address]. 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
--- OUTSIDE RECORDS SUMMARY | 2024-03-20 16:43 | XMS_ITS | Encounter Summary ---
Author Organization [facility] Address [address] [place] [address]. [place] [address] [place] [address] Care Team Providers Care Customer Training Specialist Name Role Phone Unavailable Primary Care Provider Unavailabl e Encounter Details Date Type Department Care Team (Late st Contact Info) Description 12/27/2016 Orders [place] [address] , Generic Conversion, Social History Tobacco Use Types Packs/Day Years Used Date Smoking Tobacco: Never Assessed Comments Unknown Sex and Gender Information Value Date Recorded Sex Assigned at Not on file Legal Sex Female 9:15 PM CAR WRECKER Gender Identity Not on file Sexual Orientation Not on file documented as of this encounter Plan of Treatment Not on file documented as of this encounter Procedures Procedure Name Priority Date/Time Associated Diagnosis Comments URINE BACTERIA CULTURE TIMED 12/27/2016 12:52 PM CDT documented in this encounter Results * CULTURE URINE (12/27/2016 12:52 PM CDT) SPEC DESCRIPTION URINE 12/27/2016 11:46 AM CDT [facility] SPECIAL REQUESTS NO SPECIAL REQUEST 12/27/2016 11:46 AM CDT [facility] CULTURE RESULT FEW CONTAMINANTS 12/18 8:09 PM CDT [facility] URINE SPECIMEN / Unknown 12/27/2016 12:52 PM CDT 12/27/2016 12:16 PM CDT Comment:URINE CLEAN CATCH us Generic Conversion Md [facility] MICROBIOLOGY - GENERAL ORDERABLES Final Result [facility] [address] [place] [address], [id number] documented in this encounter Visit Diagnoses Not on filedocumented in this encounter
--- OUTSIDE RECORDS SUMMARY | 2024-03-20 16:43 | XMS_ITS | Encounter Summary ---
Author Organization [facility] Address [address] [place] [address]. [place], [place] [address] [place] [address] Care Team Providers Care Metal Worker Name Role Phone Ashley ZUNIGA MD, Hermes Perez Primary Care Provid er Encounter Details Date Type Department Care Team (Latest Contact Info) Description 12/10/2016 Abstract [facility] Medical Group Social History Tobacco Use Types Packs/Day Years Used Date Smoking Tobacco: Never Assessed Comments Unknown Sex and Gender Information Value Date Recorded Sex Assigned at Not on file Legal Sex Female 9:15 PM CHANGE CONSULTANT Gender Identity Not on file Sexual Orientation Not on file documented as of this encounter Plan of Treatment Not on file documented as of this encounter Visit Diagnoses Not on filedocumented in this encounter Care Teams Metal Worker Relationship Specialty Start Date End Date Hermes Ramirez III, MD [address] [facility] [address] [place] [address] PCP - General FAMILY PRACTICE 06/20/17 documented as of this encounter
--- OUTSIDE RECORDS SUMMARY | 2024-03-20 16:43 | XMS_ITS | Encounter Summary ---
Author Organization [facility] Address [address] [place] [address]. 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 Gender Identity Not on file Sexual [...] - 10.8 x10'3/uL 12/11/2016 5:16 PM CDT [facility] RBC 2.93(L) 4.10 - 5.40 x10'6/uL 12/11/2016 5:16 PM CDT [facility] HGB 9.8(L) 12.0 - 16.0 G/DL 12/11/2016 5:16 PM CDT [facility] HCT 28.0(L) 36.0 - 47.0 % 12/11/2016 5:16 PM CDT [facility] MCV 95.6 78.0 - 100.0 FL 12/11/2016 5:16 PM CDT [facility] MCH 33.4(H) 27.0 - 31.0 PG 12/11/2016 5:16 PM CDT [facility] MCHC 35.0 33.0 - 36.0 G/DL 12/11/2016 5:16 PM CDT [facility] RDW 13.2 11.5 - 14.5 % 12/11/2016 5:16 PM CDT [facility] PLT 69(L) 150 - 350 x10'3/uL 12/11/2016 5:16 PM CDT [facility] MPV 11.4(H) 7.4 - 10.4 FL 12/11/2016 5:16 PM CDT [facility] ABS. NEUTROPHILS TOTAL 1.95 1.60 - 8.30 x10'3/uL 12/11/2016 5:16 PM CDT [facility] ABS. LYMPHOCYTES 1.05 0.80 - 4.70 x10'3/uL 12/11/2016 5:16 PM CDT [facility] ABS. MONOCYTES 0.26 0.00 - 1.50 x10'3/uL 12/11/2016 5:16 PM CDT [facility] ABS. EOSINOPHILS 0.28 0.00 - 0.40 x10'3/uL 12/11/2016 5:16 PM CDT [facility] ABS. BASOPHILS 0.02 0.00 - 0.20 x10'3/uL 12/11/2016 5:16 PM CDT [facility] ABS. IMMATURE GRANULOCYTES 0.01 0.00 - 0.03 x10'3/uL 12/11/2016 5:16 PM CDT [facility] ABS. NUCLEATED RBC'S 0.00 0.0 x10'3/uL 12/11/2016 5:16 PM CDT [facility] PLASMA SPECIMEN / Unknown 12/11/2016 5:41 PM CDT 12/11/2016 4:42 PM CDT us Generic Conversion Md [facility] Final R esult [facility] [address] [place] [address], [id number] documented in this encounter Visit Diagnoses Not on filedocumented in this encounter
--- OUTSIDE RECORDS SUMMARY | 2024-03-20 16:43 | XMS_ITS | Encounter Summary ---
Author Organization [facility] Address [address] [place] [address]. [place], [place] [address] [place] [address] Care Team Providers Care Patient Case Coordinator Name Role Phone Unavailable Primary Care Provider Unavailabl e Encounter Details Date Type Department Care Team (Late st Contact Info) Description 12/11/2016 Emergency [facility] [address] [place] [address] Social History Tobacco Use Types Packs/Day Years Used Date Smoking Tobacco: Never Assessed Comments Unknown Sex and Gender Information Value Date Recorded Sex Assigned at Not on file Legal Sex Female 9:15 PM CHARGE ACCOUNT AUTHORIZER Gender Identity Not on file Sexual Orientation Not on file documented as of this encounter Plan of Treatment Not on file documented as of this encounter Visit Diagnoses Diagnosis Pain in left ankle Pain in joint, ankle and foot documented in this encounter
--- OUTSIDE RECORDS SUMMARY | 2024-03-20 16:43 | XMS_ITS | Encounter Summary ---
Author Organization [facility] Address [address] [place] [address]. 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 RBC 2.57(L) 4.10 - 5.40 x10'6/uL 12/08/2016 3:[address] [facility] HGB 8.6(L) 12.0 - 16.0 G/DL 12/08/2016 3:[address] [facility] HCT 24.4(L) 36.0 - 47.0 % 12/08/2016 3:[address] [facility] MCV 94.9 78.0 - 100.0 FL 12/08/2016 3:[address] [facility] MCH 33.5(H) 27.0 - 31.0 PG 12/08/2016 3:[address] [facility] MCHC 35.2 33.0 - 36.0 G/DL 12/08/2016 3:[address] [facility] RDW 12.9 11.5 - 14.5 % 12/08/2016 3:[address] [facility] PLT 69(L) 150 - 350 x10'3/uL 12/08/2016 4:[address] [facility] MPV 10.7(H) 7.4 - 10.4 FL 12/08/2016 4:[address] [facility] ABS. NEUTROPHILS TOTAL 2.04 1.60 - 8.30 x10'3/uL 12/08/2016 3:[address] [facility] ABS. LYMPHOCYTES 1.07 0.80 - 4.70 x10'3/uL 12/08/2016 3:[address] [facility] ABS. MONOCYTES 0.32 0.00 - 1.50 x10'3/uL 12/08/2016 3:[address] [facility] ABS. EOSINOPHILS 0.24 0.00 - 0.40 x10'3/uL 12/08/2016 3:[address] [facility] ABS. BASOPHILS 0.01 0.00 - 0.20 x10'3/uL 12/08/2016 3:[address] [facility] ABS. IMMATURE GRANULOCYTES 0.01 0.00 - 0.03 x10'3/uL 12/08/2016 3:[address] [facility] ABS. NUCLEATED RBC'S 0.00 0.0 x10'3/uL 12/08/2016 3:[address] [facility] PLASMA SPECIMEN / Unknown 12/08/2016 4:32 AM CDT 12/08/2016 3:34 AM CDT us Generic Conversion Md [facility] Final R esult Performing Organization Address City/State/[facility] Co de Phone Number [facility] [address] [place] [address], [id number] documented in this encounter Visit Diagnoses Not on filedocumented in this encounter
--- OUTSIDE RECORDS SUMMARY | 2024-03-20 16:43 | XMS_ITS | Encounter Summary ---
Author Organization [facility] Address [address] [place] [address]. 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
--- OUTSIDE RECORDS SUMMARY | 2024-03-20 16:43 | XMS_ITS | Encounter Summary ---
Author Organization [facility] Address [address] [place] [address]. 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 [place], [place] [address] [phone] documented in this encounter Visit Diagnoses Not on filedocumented in this encounter
--- OUTSIDE RECORDS SUMMARY | 2024-03-20 16:43 | XMS_ITS | Encounter Summary ---
Author Organization [facility] Address [address] [place] [address]. 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
--- OUTSIDE RECORDS SUMMARY | 2024-03-20 16:43 | XMS_ITS | Encounter Summary ---
Author Organization [facility] Address [address] [place] [address]. [place] [address] [place] [address] Care Team Providers Care Electric Clock Mechanic Name Role Phone Ashley ZUNIGA MD, Hermes Perez Primary Care Provid er Encounter Details Date Type Department Care Team (Latest Contact Info) Description 12/19/2016 Abstract [facility] Lazara Case MD Social History Tobacco Use Types Packs/Day Years Used Date Smoking Tobacco: Never Assessed Comments Unknown Sex and Gender Information Value Date Recorded Sex Assigned at Not on file Legal Sex Female 9:15 PM ANALYSIS REPORTING DEVELOPER Gender Identity Not on file Sexual [...] filedocumented in this encounter Care Teams Electric Clock Mechanic Relationship Specialty Start Date End Date Hermes Ramirez III, MD [address] [facility] [address] [place] [address] PCP - General FAMILY PRACTICE 06/20/17 documented as of this encounter
--- OUTSIDE RECORDS SUMMARY | 2024-03-20 16:43 | XMS_ITS | Encounter Summary ---
Author Organization [facility] Address [address] [place] [address]. [place] [address] [place] [address] Care Team Providers Care Day Habilitation Supervisor Name Role Phone Unavailable Primary Care Provider Unavailabl e Encounter Details Date Type Department Care Team (Late st Contact Info) Description 12/27/2016 Orders [place] [address] , Generic Conversion, Social History Tobacco Use Types Packs/Day Years Used Date Smoking Tobacco: Never Assessed Comments Unknown Sex and Gender Information Value Date Recorded Sex Assigned at Not on file Legal Sex Female 9:15 PM MANAGER SHAREPOINT Gender Identity Not on file Sexual Orientation Not on file documented as of this encounter Plan of Treatment Not on file documented as of this encounter Procedures Procedure Name Priority Date/Time Associated Diagnosis Comments LIPASE STAT 12/27/2016 1:05 PM CDT documented in this encounter Results * LIPASE (12/27/2016 1:05 PM CDT) LIPASE 8 8 - 78 UNITS/L 12/27/2016 12:39 PM CDT [facility] SERUM OR PLASMA SPECIMEN / Unknown 12/27/2016 1:05 PM CDT 12/27/2016 12:06 PM CDT us Generic Conversion [facility] Final R esult [facility] [address] [place] [address], [id number] documented in this encounter Visit Diagnoses Not on filedocumented in this encounter
--- OUTSIDE RECORDS SUMMARY | 2024-03-20 16:43 | XMS_ITS | Encounter Summary ---
Author Organization [facility] Address [address] [place] [address]. 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 [place], [place] [address] [phone] [id number] documented in this encounter Visit Diagnoses Not on filedocumented in this encounter
--- OUTSIDE RECORDS SUMMARY | 2024-03-20 16:44 | XMS_ITS | Encounter Summary ---
Author Organization [facility] Address [address] [place] [address]. [place] [address] [place] [address] Care Team Providers Care Assignment Desk Assistant Name Role Phone Unavailable Primary Care Provider Unavailabl e Encounter Details Date Type Department Care Team (Late st Contact Info) Description 12/01/2016 Orders [place] [address] , Generic Conversion, Social History Tobacco Use Types Packs/Day Years Used Date Smoking Tobacco: Never Assessed Comments Unknown Sex and Gender Information Value Date Recorded Sex Assigned at Not on file Legal Sex Female 9:15 PM REPORTING LEAD Gender Identity Not on file Sexual Orientation Not on file documented as of this encounter Plan of Treatment Not on file documented as of this encounter Procedures Procedure Name Priority Date/Time Associated Diagnosis Comments TRIGLYCERIDES TIMED 12/01/2016 6:23 AM CDT documented in this encounter Results * TRIGLYCERIDES (12/01/2016 6:23 AM CDT) TRIGLYCERIDES 95 0 - 149 MG/DL 12/01/2016 6:05 AM CDT [facility] Comment:<150 NORMAL SERUM OR PLASMA SPECIMEN / Unknown 12/01/2016 6:23 AM CDT 12/01/2016 5:30 AM CDT us Generic Conversion [facility] Final R esult [facility] [address] [place], [place] [address] [phone] documented in this encounter Visit Diagnoses Not on filedocumented in this encounter
--- OUTSIDE RECORDS SUMMARY | 2024-03-20 16:44 | XMS_ITS | Encounter Summary ---
Author Organization [facility] Address [address] [place] [address]. [place], [place] [address] [place] [address] Care Team Providers Care Sander Wooden Pencils Name Role Phone Ashley ZUNIGA MD, Hermes Perez Primary Care Provid er Encounter Details Date Type Department Care Team (Latest Contact Info) Description 12/02/2016 Abstract [facility] Social History Tobacco Use Types Packs/Day Years Used Date Smoking Tobacco: Never Assessed Comments Unknown Sex and Gender Information Value Date Recorded Sex Assigned at Not on file Legal Sex Female 9:15 PM CASING IN LINE SETTER Gender Identity Not on file Sexual Orientation Not on file documented as of this encounter Plan of Treatment Not on file documented as of this encounter Visit Diagnoses Not on filedocumented in this encounter Care Teams Sander Wooden Pencils Relationship Specialty Start Date End Date Hermes Ramirez III, MD [address] [facility] [address] [place] [address] PCP - General FAMILY PRACTICE 06/20/17 documented as of this encounter
--- OUTSIDE RECORDS SUMMARY | 2024-03-20 16:44 | XMS_ITS | Encounter Summary ---
Author Organization [facility] Address [address] [place] [address]. 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 Optimal blood drug levels are influenced by type of transplant, patient response, time post- transplant, co-administration of other drugs, and drug formulation. The following trough range is a suggested guideline: ? 5.0-20.0 mcg/L Test Performed by Viraj Greer, [employer] [facility], [address] [place], [place] Héctor Avalos M.D., Ph.D., Director of Laboratories , [facility] [id number] WHOLE BLOOD SPECIMEN / Unknown 12/01/2016 6:23 AM CDT 12/01/2016 5:30 AM CDT us Generic Conversion [facility] Final R esult [facility] [address] [place], [place] , [place] [phone] documented in this encounter Visit Diagnoses Not on filedocumented in this encounter
--- OUTSIDE RECORDS SUMMARY | 2024-03-20 16:44 | XMS_ITS | Encounter Summary ---
Author Organization [facility] Address [address] [place] [address]. 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 Optimal blood drug levels are influenced by type of transplant, patient response, time post- transplant, co-administration of other drugs, and drug formulation. The following trough range is a suggested guideline: ? 5.0-20.0 mcg/L Test Performed by Viraj Greer, [employer] [facility], [address] [place], [place] Héctor Avalos M.D., Ph.D., Director of Laboratories , [facility] [id number] WHOLE BLOOD SPECIMEN / Unknown 11/30/2016 2:23 PM CDT 11/30/2016 1:24 PM CDT us Generic Conversion [facility] Final R esult [facility] [address] [place], [place] , [place] [phone] documented in this encounter Visit Diagnoses Not on filedocumented in this encounter
--- OUTSIDE RECORDS SUMMARY | 2024-03-20 16:44 | XMS_ITS | Encounter Summary ---
Author Organization [facility] Address [address] [place] [address]. [place] [address] [place] [address] Care Team Providers Care Block Chopper Hand Name Role Phone Unavailable Primary Care Provider Unavailabl e Encounter Details Date Type Department Care Team (Late st Contact Info) Description 11/30/2016 Orders [place] [address] , Generic Conversion, Social History Tobacco Use Types Packs/Day Years Used Date Smoking Tobacco: Never Assessed Comments Unknown Sex and Gender Information Value Date Recorded Sex Assigned at Not on file Legal Sex Female 9:15 PM PHARMACY OPERATIONS SPECIALIST Gender Identity Not on file [...] - 170 MCG/DL 11/30/2016 2:16 PM CDT [facility] IRON BINDING CAPACITY 180(L) 225 - 478 MCG/DL 11/30/2016 2:16 PM CDT [facility] IRON SATURATION 30 % 7 2:16 PM CDT [facility] TRANSFERRIN 144(L) 180 - 382 mg/dL 11/30/2016 2:16 PM CDT [facility] FERRITIN 97.4 11.00 - 204.00 NG/ML 11/30/2016 2:32 PM CDT [facility] 11/30/2016 2:23 PM CDT 11/30/2016 1:24 PM CDT Comment:PLASMA SPECIMEN ~ROB LLULAR BLOOD (SERUM OR PLASMA) SPECIMEN us Generic Conversion [facility] Final R esult [facility] [address] [place] [address], [id number] documented in this encounter Visit Diagnoses Not on filedocumented in this encounter
--- OUTSIDE RECORDS SUMMARY | 2024-03-20 16:44 | XMS_ITS | Encounter Summary ---
Author Organization [facility] Address [address] [place] [address]. [place] [address] [place] [address] Care Team Providers Care Automobile Insurance Claim Examiner Name Role Phone Unavailable Primary Care Provider Unavailabl e Encounter Details Date Type Department Care Team (Late st Contact Info) Description 11/30/2016 Orders [place] [address] , Generic Conversion, Social History Tobacco Use Types Packs/Day Years Used Date Smoking Tobacco: Never Assessed Comments Unknown Sex and Gender Information Value Date Recorded Sex Assigned at Not on file Legal Sex Female 9:15 PM BINGO CASHIER Gender Identity Not on file Sexual Orientation Not on file documented as of this encounter Plan of Treatment Not on file documented as of this encounter Procedures Procedure Name Priority Date/Time Associated Diagnosis Comments PROCALCITONIN (PCT) NOW 11/30/2016 2 :23 PM CDT documented in this encounter Results * PROCALCITONIN (PCT) (11/30/2016 2:23 PM CDT) Procalcitonin 0.38 NG/ML 12/01/2016 10:48 AM CDT [facility] Comment: PROCALCITONIN INTERPRETAION GUIDELINES SYSTEMIC BACTERIAL [...] LABORATORY Final R esult Performing Organization Address [facility]/State/ZIP Co de Phone Number [facility] [address] [place] [address], documented in this encounter Visit Diagnoses Not on filedocumented in this encounter
--- OUTSIDE RECORDS SUMMARY | 2024-03-20 16:44 | XMS_ITS | Encounter Summary ---
Author Organization [facility] Address [address] [place] [address]. 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 SPECIMEN TYPE SERUM FRZ 11/30/2016 1:[address] [facility] TEST RESULT: Flexitest 1 12/06/2016 4:34 AM CDT [employer] [facility] MICHAEL MOLINA Comment: Flexitest 1 TESTS [id number] RANGE Interleukin 2R ?869 ?? U/mL 406-1100 Units/mL can be converted to Milagros-2R pg/mL by dividing the reported value (U/mL) by 0.113. This test was performed using a kit that has not been cleared or approved by the FDA. The analytical performance characteristics of this test have been determined by [facility]. This test should not be used for diagnosis without confirmation by other medically established means. Test performed by: ?[facility] ?[address] ?[place] [address] ?Phone: ??[phone] Director: ??Zane Pickard M.D. Test Reported by Percy Clinton, [facility], [address] [place], [place] Héctor Avalos M.D., Ph.D., Director of Laboratories , [facility] [id number] 11/30/2016 2:23 PM CDT 11/30/2016 1:47 PM CDT us Generic Conversion [facility] Final R esult [facility] [address] [place] [address], [place] [phone] [facility] [address] [place] [address], [place] [phone] documented in this encounter Visit Diagnoses Not on filedocumented in this encounter
--- OUTSIDE RECORDS SUMMARY | 2024-03-20 16:44 | XMS_ITS | Encounter Summary ---
Author Organization [facility] Address [address] [place] [address]. 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 INFECTION DUE TO STREPTOCOCCUS PNEUMONIA CANNOT BE RULED OUT SINCE THE ANTIGEN PRESENT IN THE SAMPLE MAY BELOW THE DETECTION LIMIT OF THE TEST. SPECIMEN TYPE URINE 12/01/2016 10:05 AM CDT [facility] 11/30/2016 12:3 2 PM CDT 12/01/2016 9:19 AM CDT us Generic Conversion Md [facility] - GENERAL ORDERABLES Final Result Performing Organization Address City/State/[place] Co de Phone Number [facility] [address] [place] [address], [id number] documented in this encounter Visit Diagnoses Not on filedocumented in this encounter
--- OUTSIDE RECORDS SUMMARY | 2024-03-20 16:44 | XMS_ITS | Encounter Summary ---
Author Organization [facility] Address [address] [place] [address]. [place] [address] [place] [address] Care Team Providers Care Box Feeder Name Role Phone Unavailable Primary Care Provider Unavailabl e Encounter Details Date Type Department Care Team (Late st Contact Info) Description 12/01/2016 Orders [place] [address] , Generic Conversion, Social History Tobacco Use Types Packs/Day Years Used Date Smoking Tobacco: Never Assessed Comments Unknown Sex and Gender Information Value Date Recorded Sex Assigned at Not on file Legal Sex Female 9:15 PM TRANSPORT TECH Gender Identity Not on file Sexual [...] - 147 MMOL/L 12/01/2016 6:07 AM CDT [facility] POTASSIUM S/P/B 4.6 3.5 - 5.0 MMOL/L 12/01/2016 6:07 AM CDT [facility] CHLORIDE S/P/B 116(H) 98 - 107 MMOL/L 12/01/2016 6:07 AM CDT [facility] CO2 16.1(L) 22 - 29 MMOL/L 12/01/2016 6:07 AM [facility] GLUCOSE 82 70 - 109 MG/DL 12/01/2016 6:07 AM [facility] BUN 46(H) 7 - 19 MG/DL 12/01/2016 6:07 AM [facility] CREATININE S/P/B 2.67(H) 0.60 - 1.10 MG/DL 12/01/2016 6:07 AM [facility] CALCIUM S/P/B 8.1(L) 8.4 - 10.2 MG/DL 12/01/2016 6:07 AM [facility] BILIRUBIN TOTAL S/P/B 0.5 0.2 - 1.2 MG/DL 12/01/2016 6:07 AM [facility] ALKALINE PHOSPHATASE S/P/B 212(H) 37 - 98 U/L 12/01/2016 6:07 AM [facility] AST 37(H) 5 - 35 U/L 12/01/2016 6:07 AM [facility] ALT 21 0 - 55 U/L 12/01/2016 6:07 AM [facility] TOTAL PROTEIN S/P/B 5.1(L) 6.0 - 8.3 G/DL 12/01/2016 6:07 AM [facility] ALBUMIN S/P/B 2.9(L) 3.4 - 4.9 G/DL 12/01/2016 6:07 AM [facility] ANION GAP 4.9 MMOL/L 12/01/2016 6:07 AM [facility] OSMOLALITY (CALC) 285 MOSM/KG 12/01/2016 6:07 AM [facility] EGFR NON-AFR. AMER. 20(L) >60 ML/MIN/1.7 3 M2 12/01/2016 6:07 AM [facility] EGFR AFR. AMER. 25(L) >60 ML/MIN/1.7 3 M2 12/01/2016 6:07 AM CDT [facility] PLASMA SPECIMEN / Unknown 12/01/2016 6:22 AM CDT 12/01/2016 5:30 AM CDT us Generic Conversion [facility] Final R esult [facility] [address] [place] [address], [place] [phone] documented in this encounter Visit Diagnoses Not on filedocumented in this encounter
--- OUTSIDE RECORDS SUMMARY | 2024-03-20 16:44 | XMS_ITS | Encounter Summary ---
Author Organization [facility] Address [address] [place] [address]. 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 Gender Identity Not on file Sexual Orientation Not on file documented as of this encounter Plan of Treatment Not on file documented as of this encounter Procedures Procedure Name Priority Date/Time Associated Diagnosis Comments MISCELLANEOUS LAB TEST Routine 7 2:23 PM CDT documented in this encounter Results * MISCELLANEOUS LAB TEST (11/30/2016 2:23 PM CDT) TEST NAME: [id number] NATURAL KILLER CELLS FUNCTIONAL 11/30/2016 1:39 PM CDT [facility] SPECIMEN TYPE WHOLE BLOOD AMB 11/30/2016 1:39 PM CDT [facility] TEST RESULT: Flexitest 1 12/04/2016 6:04 AM CDT [employer] MICHAEL MOLINA Comment: Flexitest 1 TESTS [id number] RANGE NK Cells, Functional ? 70 ?? LU30 This result was reviewed and interpreted by Aston Gamino M.D. Decreased Activity: ?<7 LU30 Normal Activity: ? 7-125 LU30 Increased Activity: ?>125 LU30 This assay evaluates function of live cells. Optimal results require timed collection and shipping under a Short Stability Protocol. Contact FrancoGonzález ([phone]) prior to scheduling the blood draw for [...] analytical performance characteristics have been determined by [facility]. It has not been cleared or approved by FDA. This assay has been validated pursuant to the CLIA regulations and is used for clinical purposes. Test performed by: ?[facility] ?[address] ?[place] [address] ?Phone: ??[phone] Director: ??Zane Pickard M.D. Test Reported by Viraj Greer, [facility], [address] [place], [place] Héctor Avalos M.D., Ph.D., Director of Laboratories , [facility] [id number] 11/30/2016 2:23 PM CDT 11/30/2016 1:24 PM CDT us Generic Conversion [facility] Final R esult [employer] [facility] [address] [place], [place] , [place] [phone] [facility] [address] [place] [address], [place] [phone] documented in this encounter Visit Diagnoses Not on filedocumented in this encounter
--- OUTSIDE RECORDS SUMMARY | 2024-03-20 16:44 | XMS_ITS | Encounter Summary ---
Author Organization [facility] Address [address] [place] [address]. 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 Gender Identity Not on file Sexual [...] - 10.8 x10'3/uL 11/30/2016 9:55 AM CDT [facility] RBC 2.47(L) 4.10 - 5.40 x10'6/uL 11/30/2016 9:55 AM CDT [facility] HGB 8.3(L) 12.0 - 16.0 G/DL 11/30/2016 9:55 AM CDT [facility] HCT 23.6(L) 36.0 - 47.0 % 11/30/2016 9:55 AM CDT [facility] MCV 95.5 78.0 - 100.0 FL 11/30/2016 9:55 AM CDT [facility] MCH 33.6(H) 27.0 - 31.0 PG 11/30/2016 9:55 AM CDT [facility] MCHC 35.2 33.0 - 36.0 G/DL 11/30/2016 9:55 AM CDT [facility] RDW 12.6 11.5 - 14.5 % 11/30/2016 9:55 AM CDT [facility] PLT 42(L) 150 - 350 x10'3/uL 11/30/2016 9:55 AM CDT [facility] MPV 11.3(H) 7.4 - 10.4 FL 11/30/2016 9:55 AM CDT [facility] ABS. NEUTROPHILS TOTAL 1.85 1.60 - 8.30 x10'3/uL 11/30/2016 9:55 AM CDT [facility] ABS. LYMPHOCYTES 0.77(L) 0.80 - 4.70 x10'3/uL 11/30/2016 9:55 AM CDT [facility] ABS. MONOCYTES 0.22 0.00 - 1.50 x10'3/uL 11/30/2016 9:55 AM CDT [facility] ABS. EOSINOPHILS 0.17 0.00 - 0.40 x10'3/uL 11/30/2016 9:55 AM CDT [facility] ABS. BASOPHILS 0.01 0.00 - 0.20 x10'3/uL 11/30/2016 9:55 AM CDT [facility] ABS. IMMATURE GRANULOCYTES 0.05(H) 0.00 - 0.03 x10'3/uL 11/30/2016 9:55 AM CDT [facility] ABS. NUCLEATED RBC'S 0.00 0.0 x10'3/uL 11/30/2016 9:55 AM CDT [facility] PLASMA SPECIMEN / Unknown 11/30/2016 9:59 AM CDT 11/30/2016 9:38 AM CDT us Generic Conversion [facility] Final R esult Performing Organization Address City/State/[facility] Co de Phone Number [facility] [address] [place] [address], [place] [phone] documented in this encounter Visit Diagnoses Not on filedocumented in this encounter
--- OUTSIDE RECORDS SUMMARY | 2024-03-20 16:44 | XMS_ITS | Encounter Summary ---
Author Organization [facility] Address [address] [place] [address]. 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 Gender Identity Not on file Sexual Orientation Not on file documented as of this encounter Plan of Treatment Not on file documented as of this encounter Procedures Procedure Name Priority Date/Time Associated Diagnosis Comments MAGNESIUM Routine 12/01/2016 6:22 AM CDT documented in this encounter Results * MAGNESIUM (12/01/2016 6:22 AM CDT) MAGNESIUM 2.0 1.6 - 2.6 MG/DL 12/01/2016 6:07 AM CDT [facility] SERUM OR PLASMA SPECIMEN / Unknown 12/01/2016 6:22 AM CDT 12/01/2016 5:30 AM CDT us Generic Conversion [facility] Final R esult [facility] [address] [place] [address], [id number] documented in this encounter Visit Diagnoses Not on filedocumented in this encounter
--- OUTSIDE RECORDS SUMMARY | 2024-03-20 16:44 | XMS_ITS | Encounter Summary ---
Author Organization [facility] Address [address] [place] [address]. [place], [place] [address] [place] [address] Care Team Providers Care Private Advisor Name Role Phone Ashley ZUNIGA MD, Hermes Perez Primary Care Provid er Encounter Details Date Type Department Care Team (Latest Contact Info) Description 12/01/[address] 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
--- OUTSIDE RECORDS SUMMARY | 2024-03-20 16:44 | XMS_ITS | Encounter Summary ---
Author Organization [facility] Address [address] [place] [address]. 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 EXCLUSION STATEMENT CUT-OFF FOR EXCLUSION OF VENOUS THROMBOEMBOLISM AND PULMONARY EMBOLISM IS LESS THAN 0.5 mcg/ml FEU. 11/30/2016 10:[address] [facility] FIBRINOGEN 257 190 - 464 MG/DL 11/30/2016 1:[address] [facility] PLT 37(L) 150 - 350 x10'3/uL 11/30/2016 2:[address] [facility] PROTIME 15.3(H) 11.6 - 14.3 SEC 11/30/2016 1:[address] [facility] INR 1.2(H) 0.9 - 1.1 11/30/2016 1:[address] [facility] PTT 36.1(H) 22.0 - 35.0 SEC 11/30/2016 1:[address] [facility] 11/30/2016 2:23 PM CDT 11/30/2016 1:24 PM CDT Comment:PLASMA SPECIMEN ~[facility] SMA SPECIMEN us Generic Conversion [facility] Final R esult [facility] [address] [place] [address], [id number] documented in this encounter Visit Diagnoses Not on filedocumented in this encounter
--- OUTSIDE RECORDS SUMMARY | 2024-03-20 16:44 | XMS_ITS | Encounter Summary ---
Author Organization [facility] Address [address] [place] [address]. [place], [place] [address] [place] [address] Care Team Providers Care Doctor Of Veterinary Medicine Name Role Phone Ashley ZUNIGA MD, Hermes Perez Primary Care Provid er Encounter Details Date Type Department Care Team (Latest Contact Info) Description 11/30/2016 Abstract [facility] Social History Tobacco Use Types Packs/Day Years Used Date Smoking Tobacco: Never Assessed Comments Unknown Sex and Gender Information Value Date Recorded Sex Assigned at Not on file Legal Sex Female 9:15 PM PROCUREMENT INTERNSHIP Gender Identity Not on file Sexual Orientation Not on file documented as of this encounter Plan of Treatment Not on file documented as of this encounter Visit Diagnoses Not on filedocumented in this encounter Care Teams Doctor Of Veterinary Medicine Relationship Specialty Start Date End Date Hermes Ramirez III, MD [address] [facility] [address] [place] [address] PCP - General FAMILY PRACTICE 06/20/17 documented as of this encounter
--- OUTSIDE RECORDS SUMMARY | 2024-03-20 16:44 | XMS_ITS | Encounter Summary ---
Author Organization [facility] Address [address] [place] [address]. 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 [place], [place] ?? Department of Radiology ? MISHA JACKSON Ordering MD: MIGUEL CORONA MD ?? Acct: [id number] ?? : 1980 Pt Type: ADM IN ?? Sex: F Ord Site: MAIN ? Study Date Accession # Procedure Code Procedure ?? 11/[id number] US Duplex Venous Ext Rt ? [...] Procedure Note Lazara Mendoza MD - 01/11/2018 [place], [place] Department of Radiology MISHA JACKSON Ordering MD: MIGUEL CORONA MD Acct: [id number] : 1980 Pt Type: ADM IN Sex: F Ord Site: MAIN Study Date Accession # Procedure Code Procedure [id number] US Duplex Venous Ext Rt Signed [...] filedocumented in this encounter Care Teams House Painter Relationship Specialty Start Date End Date Hermes Ramirez III, MD [address] [place] [address] PCP - General FAMILY PRACTICE 06/20/17 documented as of this encounter
--- OUTSIDE RECORDS SUMMARY | 2024-03-20 16:44 | XMS_ITS | Encounter Summary ---
Author Organization [facility] Address [address] [place] [address]. 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 Gender Identity Not on file Sexual [...] - 10.8 x10'3/uL 12/01/2016 5:47 AM CDT [facility] RBC 2.24(L) 4.10 - 5.40 x10'6/uL 12/01/2016 5:47 AM CDT [facility] HGB 7.4(L) 12.0 - 16.0 G/DL 12/01/2016 5:47 AM CDT [facility] HCT 21.6(L) 36.0 - 47.0 % 12/01/2016 5:47 AM CDT [facility] MCV 96.4 78.0 - 100.0 FL 12/01/2016 5:47 AM CDT [facility] MCH 33.0(H) 27.0 - 31.0 PG 12/01/2016 5:47 AM CDT [facility] MCHC 34.3 33.0 - 36.0 G/DL 12/01/2016 5:47 AM CDT [facility] RDW 12.7 11.5 - 14.5 % 12/01/2016 5:47 AM CDT [facility] PLT 33(L) 150 - 350 x10'3/uL 12/01/2016 5:47 AM CDT [facility] MPV 11.5(H) 7.4 - 10.4 FL 12/01/2016 5:47 AM CDT [facility] ABS. NEUTROPHILS TOTAL 1.34(L) 1.60 - 8.30 x10'3/uL 12/01/2016 6:35 AM CDT [facility] ABS. NEUTROPHILS CALCULATED 1.32(L) 1.60 - 7.30 x10'3/uL 12/01/2016 6:35 AM CDT [facility] BANDS 0.02 0.00 - 1.00 x10'3/uL 12/01/2016 6:35 AM CDT [facility] ABS. LYMPHOCYTES 0.53(L) 0.80 - 4.70 x10'3/uL 12/01/2016 6:35 AM CDT [facility] ABS. MONOCYTES 0.15 0.00 - 1.50 x10'3/uL 12/01/2016 6:35 AM CDT [facility] ABS. EOSINOPHILS 0.08 0.00 - 0.40 x10'3/uL 12/01/2016 6:35 AM CDT [facility] ABS. BASOPHILS 0.00 0.00 - 0.20 x10'3/uL 12/01/2016 6:35 AM CDT [facility] ABS. NUCLEATED RBC'S 0.00 0.0 x10'3/uL 12/01/2016 6:35 AM CDT [facility] RBC MORPHOLOGY POLYCHROMASIA 017 6:35 AM CDT [facility] Comment: SLIGHT POIKILOCYTOSIS SLIGHT OVALOCYTES TEARDROP CELLS PLT MORPH. LOW 12/01/2016 6:35 AM CDT [facility] PLASMA SPECIMEN / Unknown 12/01/2016 6:22 AM CDT 12/01/2016 5:31 AM CDT us Generic Conversion [facility] Final R esult [facility] [address] [place] [address], [id number] documented in this encounter Visit Diagnoses Not on filedocumented in this encounter
--- OUTSIDE RECORDS SUMMARY | 2024-03-20 16:44 | XMS_ITS | Encounter Summary ---
Author Organization [facility] Address [address] [place] [address]. [place], [place] [address] [place] [address] Care Team Providers Care Gambreler Helper Name Role Phone Unavailable Primary Care Provider Unavailabl e Encounter Details Date Type Department Care Team (Late st Contact Info) Description 12/08/2016 Emergency [facility] Emergency [address] [place] [address] Jimy Ramirez, APNP [address] [place] [address] Social History Tobacco Use Types Packs/Day Years Used Date Smoking Tobacco: Never Assessed Comments Unknown Sex and Gender Information Value Date Recorded Sex Assigned at Not on file Legal Sex Female 9:15 PM SUPERVISOR STONE Gender Identity Not on file Sexual Orientation Not on file documented as of this encounter Plan of Treatment Not on file documented as of this encounter Visit Diagnoses Diagnosis Phlebitis of superficial vein of left lower extremity documented in this encounter
--- OUTSIDE RECORDS SUMMARY | 2024-03-20 16:45 | XMS_ITS | Encounter Summary ---
Author Organization [facility] Address [address] [place] [address]. 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5 - 14.5 % 11/29/2016 3:01 AM CDT [facility] PLT 49(L) 150 - 350 x10'3/uL 11/29/2016 3:01 AM [facility] MPV 11.3(H) 7.4 - 10.4 FL 11/29/2016 3:01 AM T [facility] ABS. NEUTROPHILS TOTAL 1.90 1.60 - 8.30 x10'3/uL 11/29/2016 3:01 AM T [facility] ABS. LYMPHOCYTES 0.74(L) 0.80 - 4.70 x10'3/uL 11/29/2016 3:01 AM T [facility] ABS. MONOCYTES 0.21 0.00 - 1.50 x10'3/uL 11/29/2016 3:01 AM CDT [facility] ABS. EOSINOPHILS 0.16 0.00 - 0.40 x10'3/uL 11/29/2016 3:01 AM CDT [facility] ABS. BASOPHILS 0.00 0.00 - 0.20 x10'3/uL 11/29/2016 3:01 AM T [facility] ABS. IMMATURE GRANULOCYTES 0.01 0.00 - 0.03 x10'3/uL 11/29/2016 3:01 AM T [facility] ABS. NUCLEATED RBC'S 0.00 0.0 x10'3/uL 11/29/2016 3:01 AM CDT [facility] PLASMA SPECIMEN / Unknown 11/29/2016 3:32 AM CDT 11/29/2016 2:54 AM CDT us Generic Conversion [facility] Final R esult Performing Organization Address City/State/[facility] Co de Phone Number [facility] [address] [place] [address], [id number] documented in this encounter Visit Diagnoses Not on filedocumented in this encounter
--- OUTSIDE RECORDS SUMMARY | 2024-03-20 16:45 | XMS_ITS | Encounter Summary ---
Author Organization [facility] Address [address] [place] [address]. 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 U/mL ?Interpretation ?<36.00 ?Negative 36.00 - 43.99 ?Equivocal ??>43.99 ?Positive EBV VCA IGG 292.00(H) <18.00 U/mL 12/01/2016 11:38 AM CDT [facility] MACY MELCHOR Comment: ?? U/mL ?Interpretation ?<18.00 ?Negative 18.00 - 21.99 ?Equivocal ??>21.99 ?Positive LOUIS BAR NUCLEAR ANTIGEN IGG 30.10(H) <18.00 U/mL 12/01/2016 11:38 AM CDT [facility] MACY MELCHOR Comment: ?? 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 In infants, a similiar pattern may occur as a result of a passive maternal transfer of antibody. Test Performed by Viraj Greer, [facility] [place], [address] [place], [place] Héctor Avalos M.D., Ph.D., Director of Laboratories , [place] [id number] SERUM SPECIMEN / Unknown 11/26/2016 5:27 AM CDT 11/26/2016 5:07 AM CDT us Generic Conversion Md [facility] Final R esult [facility] [address] [place], [place] , documented in this encounter Visit Diagnoses Not on filedocumented in this encounter
--- OUTSIDE RECORDS SUMMARY | 2024-03-20 16:45 | XMS_ITS | Encounter Summary ---
Author Organization [facility] Address [address] [place] [address]. 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 [place], [place] ?? Department of Radiology ? MISHA JACKSON Ordering MD: EVELINE VALENTE MD ?? Acct: [id number] ?? : 1980 Pt Type: ADM IN ?? Sex: F Ord Site: MAIN ? Study Date Accession # Procedure Code Procedure ?? [id number] XR Foot 2 View Rt ? Signed [...] Procedure Note Lazara Mendoza MD - 01/11/2018 [place], [place] Department of Radiology MISHA JACKSON Ordering MD: EVELINE VALENTE MD Acct: [id number] : 1980 Pt Type: ADM IN Sex: F Ord Site: MAIN Study Date Accession # Procedure Code Procedure [id number] XR Foot 2 View Rt Signed EXAMINATION: [...] on filedocumented in this encounter Care Teams Polymer Scientist Relationship Specialty Start Date End Date Hermes Ramirez III, MD [address] [place] [address] PCP - General FAMILY PRACTICE 06/20/17 documented as of this encounter
--- OUTSIDE RECORDS SUMMARY | 2024-03-20 16:45 | XMS_ITS | Encounter Summary ---
Author Organization [facility] Address [address] [place] [address]. 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 Optimal blood drug levels are influenced by type of transplant, patient response, time post- transplant, co-administration of other drugs, and drug formulation. The following trough range is a suggested guideline: ? 5.0-20.0 mcg/L Test Performed by Viraj Greer, [place] [facility], [address] [place], [place] Héctor Avalos M.D., Ph.D., Director of Laboratories , [facility] [id number] WHOLE BLOOD SPECIMEN / Unknown 11/29/2016 8:52 PM CDT 11/29/2016 7:53 PM CDT us Generic Conversion Md [facility] Final R esult [facility] [address] [place], [place] , [place] [phone] documented in this encounter Visit Diagnoses Not on filedocumented in this encounter
--- OUTSIDE RECORDS SUMMARY | 2024-03-20 16:45 | XMS_ITS | Encounter Summary ---
Author Organization [facility] Address [address] [place] [address]. 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 Gender Identity Not on file Sexual [...] - 147 MMOL/L 11/29/2016 3:21 AM CDT [facility] POTASSIUM S/P/B 4.8 3.5 - 5.0 MMOL/L 11/29/2016 3:21 AM CDT [facility] CHLORIDE S/P/B 117(H) 98 - 107 MMOL/L 11/29/2016 3:21 AM CDT [facility] CO2 15.0(L) 22 - 29 MMOL/L 11/29/2016 3:21 AM T [facility] GLUCOSE 89 70 - 109 MG/DL 11/29/2016 3:21 AM [facility] BUN 50(H) 7 - 19 MG/DL 11/29/2016 3:21 AM [facility] CREATININE S/P/B 2.80(H) 0.60 - 1.10 MG/DL 11/29/2016 3:21 AM [facility] CALCIUM S/P/B 8.0(L) 8.4 - 10.2 MG/DL 11/29/2016 3:21 AM [facility] BILIRUBIN TOTAL S/P/B 0.5 0.2 - 1.2 MG/DL 11/29/2016 3:21 AM [facility] ALKALINE PHOSPHATASE S/P/B 178(H) 37 - 98 U/L 11/29/2016 3:21 AM [facility] AST 18 5 - 35 U/L 11/29/2016 3:21 AM [facility] ALT 10 0 - 55 U/L 11/29/2016 3:21 AM [facility] TOTAL PROTEIN S/P/B 5.6(L) 6.0 - 8.3 G/DL 11/29/2016 3:21 AM [facility] ALBUMIN S/P/B 3.2(L) 3.4 - 4.9 G/DL 11/29/2016 3:21 AM [facility] ANION GAP 5.0 MMOL/L 11/29/2016 3:21 AM [facility] OSMOLALITY (CALC) 287 MOSM/KG 11/29/2016 3:21 AM [facility] EGFR NON-AFR. AMER. 19(L) >60 ML/MIN/1.7 3 M2 11/29/2016 3:21 AM [facility] EGFR AFR. AMER. 23(L) >60 ML/MIN/1.7 3 M2 11/29/2016 3:21 AM CDT [facility] PLASMA SPECIMEN / Unknown 11/29/2016 3:32 AM CDT 11/29/2016 2:54 AM CDT us Generic Conversion Md [facility] Final R esult [facility] [address] [place] [address], [id number] documented in this encounter Visit Diagnoses Not on filedocumented in this encounter
--- OUTSIDE RECORDS SUMMARY | 2024-03-20 16:45 | XMS_ITS | Encounter Summary ---
Author Organization [facility] Address [address] [place] [address]. 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 [address] [place] [address] PCP - General FAMILY PRACTICE 06/20/17 documented as of this encounter
--- OUTSIDE RECORDS SUMMARY | 2024-03-20 16:45 | XMS_ITS | Encounter Summary ---
Author Organization [facility] Address [address] [place] [address]. 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 ENGINEER Gender Identity Not on file Sexual [...] - 147 MMOL/L 11/30/2016 6:57 AM CDT [facility] POTASSIUM S/P/B 4.7 3.5 - 5.0 MMOL/L 11/30/2016 6:57 AM CDT [facility] CHLORIDE S/P/B 120(H) 98 - 107 MMOL/L 11/30/2016 6:57 AM CDT [facility] CO2 14.1(L) 22 - 29 MMOL/L 11/30/2016 6:57 AM [facility] GLUCOSE 97 70 - 109 MG/DL 11/30/2016 6:57 AM [facility] BUN 50(H) 7 - 19 MG/DL 11/30/2016 6:57 AM [facility] CREATININE S/P/B 2.93(H) 0.60 - 1.10 MG/DL 11/30/2016 6:57 AM [facility] CALCIUM S/P/B 8.1(L) 8.4 - 10.2 MG/DL 11/30/2016 6:57 AM [facility] BILIRUBIN TOTAL S/P/B 0.4 0.2 - 1.2 MG/DL 11/30/2016 6:57 AM [facility] ALKALINE PHOSPHATASE S/P/B 172(H) 37 - 98 U/L 11/30/2016 6:57 AM [facility] AST 21 5 - 35 U/L 11/30/2016 6:57 AM [facility] ALT 11 0 - 55 U/L 11/30/2016 6:57 AM [facility] TOTAL PROTEIN S/P/B 5.0(L) 6.0 - 8.3 G/DL 11/30/2016 6:57 AM [facility] ALBUMIN S/P/B 2.8(L) 3.4 - 4.9 G/DL 11/30/2016 6:57 AM [facility] ANION GAP 4.9 MMOL/L 11/30/2016 6:57 AM [facility] OSMOLALITY (CALC) 291 MOSM/KG 11/30/2016 6:57 AM [facility] EGFR NON-AFR. AMER. 18(L) >60 ML/MIN/1.7 3 M2 11/30/2016 6:57 AM [facility] EGFR AFR. AMER. 22(L) >60 ML/MIN/1.7 3 M2 11/30/2016 6:57 AM CDT [facility] PLASMA SPECIMEN / Unknown 11/30/2016 7:11 AM CDT 11/30/2016 6:28 AM CDT us Generic Conversion Md [facility] Final R esult [facility] [address] [place] [address], [id number] documented in this encounter Visit Diagnoses Not on filedocumented in this encounter
--- OUTSIDE RECORDS SUMMARY | 2024-03-20 16:45 | XMS_ITS | Encounter Summary ---
Author Organization [facility] Address [address] [place] [address]. [place] [address] [place] [address] Care Team Providers Care Applications Engineer Manufacturing Name Role Phone Unavailable Primary Care Provider Unavailabl e Encounter Details Date Type Department Care Team (Late st Contact Info) Description 11/29/2016 Orders [place] [address] , Generic Conversion, Social History Tobacco Use Types Packs/Day Years Used Date Smoking Tobacco: Never Assessed Comments Unknown Sex and Gender Information Value Date Recorded Sex Assigned at Not on file Legal Sex Female 9:15 PM ADJUSTER AND INSPECTOR Gender Identity Not on file Sexual [...] MG/DL 11/29/2016 3:21 AM CDT [facility] SERUM OR PLASMA SPECIMEN / Unknown 11/29/2016 3:32 AM CDT 11/29/2016 2:54 AM CDT us Generic Conversion Md [facility] Final R esult [facility] [address] [place] [address], [place] [phone] documented in this encounter Visit Diagnoses Not on filedocumented in this encounter
--- OUTSIDE RECORDS SUMMARY | 2024-03-20 16:45 | XMS_ITS | Encounter Summary ---
Author Organization [facility] Address [address] [place] [address]. 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 Gender Identity Not on file Sexual [...] - 147 MMOL/L 11/26/2016 5:46 AM CDT [facility] POTASSIUM S/P/B 4.4 3.5 - 5.0 MMOL/L 11/26/2016 5:46 AM CDT [facility] CHLORIDE S/P/B 114(H) 98 - 107 MMOL/L 11/26/2016 5:46 AM CDT [facility] CO2 18.3(L) 22 - 29 MMOL/L 11/26/2016 5:46 AM [facility] GLUCOSE 96 70 - 109 MG/DL 11/26/2016 5:46 AM [facility] BUN 44(H) 7 - 19 MG/DL 11/26/2016 5:46 AM [facility] CREATININE S/P/B 3.49(H) 0.60 - 1.10 MG/DL 11/26/2016 5:46 AM [facility] CALCIUM S/P/B 7.9(L) 8.4 - 10.2 MG/DL 11/26/2016 5:46 AM [facility] BILIRUBIN TOTAL S/P/B 0.4 0.2 - 1.2 MG/DL 11/26/2016 5:46 AM [facility] ALKALINE PHOSPHATASE S/P/B 150(H) 37 - 98 U/L 11/26/2016 5:46 AM [facility] AST 16 5 - 35 U/L 11/26/2016 5:46 AM [facility] ALT 9 0 - 55 U/L 11/26/2016 5:46 AM [facility] TOTAL PROTEIN S/P/B 4.9(L) 6.0 - 8.3 G/DL 11/26/2016 5:46 AM [facility] ALBUMIN S/P/B 2.9(L) 3.4 - 4.9 G/DL 11/26/2016 5:46 AM [facility] ANION GAP 4.7 MMOL/L 11/26/2016 5:46 AM [facility] OSMOLALITY (CALC) 285 MOSM/KG 11/26/2016 5:46 AM [facility] EGFR NON-AFR. AMER. 15(L) >60 ML/MIN/1.7 3 M2 11/26/2016 5:46 AM [facility] EGFR AFR. AMER. 18(L) >60 ML/MIN/1.7 3 M2 11/26/2016 5:46 AM CDT [facility] PLASMA SPECIMEN / Unknown 11/26/2016 5:27 AM CDT 11/26/2016 5:07 AM CDT us Generic Conversion Md [facility] Final R esult [facility] [address] [place] [address], [id number] documented in this encounter Visit Diagnoses Not on filedocumented in this encounter
--- OUTSIDE RECORDS SUMMARY | 2024-03-20 16:45 | XMS_ITS | Encounter Summary ---
Author Organization [facility] Address [address] [place] [address]. [place] [address] [place] [address] Care Team Providers Care Radio Frequency Technician Name Role Phone Unavailable Primary Care Provider Unavailabl e Encounter Details Date Type Department Care Team (Late st Contact Info) Description 11/25/2016 Orders [place] [address] , Generic Conversion, Social History Tobacco Use Types Packs/Day Years Used Date Smoking Tobacco: Never Assessed Comments Unknown Sex and Gender Information Value Date Recorded Sex Assigned at Not on file Legal Sex Female 9:15 PM HOSPITALITY TEAM MEMBER Gender Identity Not on file [...] - 201 IU/ML 11/25/2016 2:19 PM CDT [facility] SERUM SPECIMEN / Unknown 11/25/2016 2:07 PM CDT 11/25/2016 1:13 PM CDT us Generic Conversion Md [facility] Final R esult [facility] [address] [place] [address], [place] [phone] [id number] documented in this encounter Visit Diagnoses Not on filedocumented in this encounter
--- OUTSIDE RECORDS SUMMARY | 2024-03-20 16:45 | XMS_ITS | Encounter Summary ---
Author Organization [facility] Address [address] [place] [address]. 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 [address], [id number] documented in this encounter Visit Diagnoses Not on filedocumented in this encounter
--- OUTSIDE RECORDS SUMMARY | 2024-03-20 16:45 | XMS_ITS | Encounter Summary ---
Author Organization [facility] Address [address] [place] [address]. [place] [address] [place] [address] Care Team Providers Care Auto Travel Counselor Name Role Phone Unavailable Primary Care Provider Unavailabl e Encounter Details Date Type Department Care Team (Late st Contact Info) Description 11/26/2016 Orders Only [place] [address] , Generic Conversion, Social History Tobacco Use Types Packs/Day Years Used Date Smoking Tobacco: Never Assessed Comments Unknown Sex and Gender Information Value Date Recorded Sex Assigned at Not on file Legal Sex Female 9:15 PM INDUSTRIAL ENGINEERING DIRECTOR Gender Identity Not on file Sexual [...] - 10.8 x10'3/uL 11/26/2016 5:20 AM CDT [facility] RBC 2.57(L) 4.10 - 5.40 x10'6/uL 11/26/2016 5:20 AM CDT [facility] HGB 8.4(L) 12.0 - 16.0 G/DL 11/26/2016 5:20 AM CDT [facility] HCT 24.3(L) 36.0 - 47.0 % 11/26/2016 5:20 AM CDT [facility] MCV 94.6 78.0 - 100.0 FL 11/26/2016 5:20 AM CDT [facility] MCH 32.7(H) 27.0 - 31.0 PG 11/26/2016 5:20 AM CDT [facility] MCHC 34.6 33.0 - 36.0 G/DL 11/26/2016 5:20 AM CDT [facility] RDW 12.0 11.5 - 14.5 % 11/26/2016 5:20 AM CDT [facility] PLT 47(L) 150 - 350 x10'3/uL 11/26/2016 5:20 AM CDT [facility] MPV 11.4(H) 7.4 - 10.4 FL 11/26/2016 5:20 AM CDT [facility] ABS. NEUTROPHILS TOTAL 1.85 1.60 - 8.30 x10'3/uL 11/26/2016 5:44 AM CDT [facility] ABS. NEUTROPHILS CALCULATED 1.74 1.60 - 7.30 x10'3/uL 11/26/2016 5:44 AM CDT [facility] BANDS 0.11 0.00 - 1.00 x10'3/uL 11/26/2016 5:44 AM CDT [facility] ABS. LYMPHOCYTES 0.73(L) 0.80 - 4.70 x10'3/uL 11/26/2016 5:44 AM CDT [facility] ABS. MONOCYTES 0.11 0.00 - 1.50 x10'3/uL 11/26/2016 5:44 AM CDT [facility] ABS. EOSINOPHILS 0.11 0.00 - 0.40 x10'3/uL 11/26/2016 5:44 AM CDT [facility] ABS. BASOPHILS 0.00 0.00 - 0.20 x10'3/uL 11/26/2016 5:44 AM CDT [facility] ABS. NUCLEATED RBC'S 0.00 0.0 x10'3/uL 11/26/2016 5:44 AM CDT [facility] RBC MORPHOLOGY ANISOCYTOSIS 11/27/19 17 5:44 AM CDT [facility] Comment: SLIGHT POLYCHROMASIA SLIGHT POIKILOCYTOSIS SLIGHT OVALOCYTES ACANTHOCYTES PLT MORPH. LOW 11/26/2016 5:44 AM CDT [facility] PLASMA SPECIMEN / Unknown 11/26/2016 5:27 AM CDT 11/26/2016 5:07 AM CDT us Generic Conversion Md [facility] Final R esult [facility] [address] [place] [address], [id number] documented in this encounter Visit Diagnoses Not on filedocumented in this encounter
--- OUTSIDE RECORDS SUMMARY | 2024-03-20 16:45 | XMS_ITS | Encounter Summary ---
Author Organization [facility] Address [address] [place] [address]. [place], [place] [address] [place] [address] Care Team Providers Care Cat And Dog Bather Name Role Phone Ashley ZUNIGA MD, Hermes Perez Primary Care Provid er Encounter Details Date Type Department Care Team (Latest Contact Info) Description 11/28/2016 Abstract [facility] Social History Tobacco Use Types Packs/Day Years Used Date Smoking Tobacco: Never Assessed Comments Unknown Sex and Gender Information Value Date Recorded Sex Assigned at Not on file Legal Sex Female 9:15 PM MILITARY NURSE Gender Identity Not on file Sexual Orientation Not on file documented as of this encounter Plan of Treatment Not on file documented as of this encounter Visit Diagnoses Not on filedocumented in this encounter Care Teams Cat And Dog Bather Relationship Specialty Start Date End Date Hermes Ramirez III, MD [address] [facility] [address] [place] [address] PCP - General FAMILY PRACTICE 06/20/17 documented as of this encounter
--- OUTSIDE RECORDS SUMMARY | 2024-03-20 16:45 | XMS_ITS | Encounter Summary ---
Author Organization [facility] Address [address] [place] [address]. 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 Gender Identity Not on file Sexual Orientation Not on file documented as of this encounter Plan of Treatment Not on file documented as of this encounter Procedures Procedure Name Priority Date/Time Associated Diagnosis Comments MAGNESIUM Routine 11/27/2016 7:31 AM CDT documented in this encounter Results * MAGNESIUM (11/27/2016 7:31 AM CDT) MAGNESIUM 1.6 1.6 - 2.6 MG/DL 11/27/2016 7:29 AM CDT [facility] SERUM OR PLASMA SPECIMEN / Unknown 11/27/2016 7:31 AM CDT 11/27/2016 6:54 AM CDT us Generic Conversion Md [facility] Final R esult [facility] [address] [place] [address], [id number] documented in this encounter Visit Diagnoses Not on filedocumented in this encounter
--- OUTSIDE RECORDS SUMMARY | 2024-03-20 16:45 | XMS_ITS | Encounter Summary ---
Author Organization [facility] Address [address] [place] [address]. [place] [address] [place] [address] Care Team Providers Care Screen Maker Name Role Phone Unavailable Primary Care Provider Unavailabl e Encounter Details Date Type Department Care Team (Late st Contact Info) Description 11/26/2016 Orders [place] [address] , Generic Conversion, Social History Tobacco Use Types Packs/Day Years Used Date Smoking Tobacco: Never Assessed Comments Unknown Sex and Gender Information Value Date Recorded Sex Assigned at Not on file Legal Sex Female 9:15 PM ACCOUNTANT AUDITOR Gender Identity Not on file Sexual [...] SPEC DESCRIPTION THROAT 11/26/2016 4:56 PM CDT [facility] SPECIAL REQUESTS NO SPECIAL REQUEST 11/26/2016 4:56 PM CDT [facility] CULTURE RESULT NO STREPTOCOCCUS PYOGENES (GROUP A) ISOLATED 11/28/2016 7:43 PM CDT [facility] THROAT SWAB / Unknown 11/26/2016 5:56 PM CDT 11/26/2016 5:58 PM CDT us Generic Conversion Md [facility] MICROBIOLOGY - GENERAL ORDERABLES Final Result Performing Organization Address City/State/[facility] Co de Phone Number [facility] [address] [place] [address], [place] [phone] documented in this encounter Visit Diagnoses Not on filedocumented in this encounter
--- OUTSIDE RECORDS SUMMARY | 2024-03-20 16:45 | XMS_ITS | Encounter Summary ---
Author Organization [facility] Address [address] [place] [address]. [place] [address] [place] [address] Care Team Providers Care Turner Off Name Role Phone Unavailable Primary Care Provider Unavailabl e Encounter Details Date Type Department Care Team (Late st Contact Info) Description 11/26/2016 [place] [address] , Generic Conversion, Social History Tobacco Use Types Packs/Day Years Used Date Smoking Tobacco: Never Assessed Comments Unknown Sex and Gender Information Value Date Recorded Sex Assigned at Not on file Legal Sex Female 9:15 PM ADOBE MAKER Gender Identity Not on file Sexual [...] SPEC DESCRIPTION THROAT 11/26/2016 4:56 PM CDT [facility] SPECIAL REQUESTS NO SPECIAL REQUEST 11/26/2016 4:56 PM CDT [facility] RAPID STREP TEST NEGATIVE FOR GROUP A BETA STREP 11/26/2016 6:06 PM CDT [facility] THROAT SWAB / Unknown 11/26/2016 5:56 PM CDT 11/26/2016 5:58 PM CDT us Generic Conversion Md [facility] MICROBIOLOGY - GENERAL ORDERABLES Final Result Performing Organization Address City/State/[facility] Co de Phone Number [facility] [address] [place] [address], [phone] documented in this encounter Visit Diagnoses Not on filedocumented in this encounter
--- OUTSIDE RECORDS SUMMARY | 2024-03-20 16:45 | XMS_ITS | Encounter Summary ---
Author Organization [facility] Address [address] [place] [address]. 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 Gender Identity Not on file Sexual [...] - 147 MMOL/L 11/28/2016 5:50 AM CDT [facility] POTASSIUM S/P/B 4.4 3.5 - 5.0 MMOL/L 11/28/2016 5:50 AM CDT [facility] CHLORIDE S/P/B 115(H) 98 - 107 MMOL/L 11/28/2016 5:50 AM CDT [facility] CO2 17.7(L) 22 - 29 MMOL/L 11/28/2016 5:50 AM CDT [facility] GLUCOSE 96 70 - 109 MG/DL 11/28/2016 5:50 AM CDT [facility] BUN 47(H) 7 - 19 MG/DL 11/28/2016 5:50 AM CDT [facility] CREATININE S/P/B 2.89(H) 0.60 - 1.10 MG/DL 11/28/2016 5:50 AM CDT [facility] CALCIUM S/P/B 7.9(L) 8.4 - 10.2 MG/DL 11/28/2016 5:50 AM CDT [facility] BILIRUBIN TOTAL S/P/B 0.5 0.2 - 1.2 MG/DL 11/28/2016 5:50 AM T [facility] ALKALINE PHOSPHATASE S/P/B 147(H) 37 - 98 U/L 11/28/2016 5:50 AM CDT [facility] AST 15 5 - 35 U/L 11/28/2016 5:50 AM CDT [facility] ALT 9 0 - 55 U/L 11/28/2016 5:50 AM T [facility] TOTAL PROTEIN S/P/B 4.9(L) 6.0 - 8.3 G/DL 11/28/2016 5:50 AM T [facility] ALBUMIN S/P/B 2.8(L) 3.4 - 4.9 G/DL 11/28/2016 5:50 AM CDT [facility] ANION GAP 4.3 MMOL/L 11/28/2016 5:50 AM CDT [facility] OSMOLALITY (CALC) 286 MOSM/KG 11/28/2016 5:50 AM CDT [facility] EGFR NON-AFR. AMER. 19(L) >60 ML/MIN/1.7 3 M2 11/28/2016 5:50 AM CDT [facility] EGFR AFR. AMER. 23(L) >60 ML/MIN/1.7 3 M2 11/28/2016 5:50 AM CDT [facility] PLASMA SPECIMEN / Unknown 11/28/2016 5:39 AM CDT 11/28/2016 5:09 AM CDT us Generic Conversion Md [facility] Final R esult [facility] [address] [place] [address], [id number] documented in this encounter Visit Diagnoses Not on filedocumented in this encounter
--- OUTSIDE RECORDS SUMMARY | 2024-03-20 16:45 | XMS_ITS | Encounter Summary ---
Author Organization [facility] Address [address] [place] [address]. 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 Gender Identity Not on file Sexual Orientation [...] - 10.8 x10'3/uL 11/28/2016 5:27 AM CDT [facility] RBC 2.47(L) 4.10 - 5.40 x10'6/uL 11/28/2016 5:27 AM CDT [facility] HGB 8.3(L) 12.0 - 16.0 G/DL 11/28/2016 5:27 AM CDT [facility] HCT 23.4(L) 36.0 - 47.0 % 11/28/2016 5:27 AM CDT [facility] MCV 94.7 78.0 - 100.0 FL 11/28/2016 5:27 AM CDT [facility] MCH 33.6(H) 27.0 - 31.0 PG 11/28/2016 5:27 AM CDT [facility] MCHC 35.5 33.0 - 36.0 G/DL 11/28/2016 5:27 AM CDT [facility] RDW 12.3 11.5 - 14.5 % 11/28/2016 5:27 AM CDT [facility] PLT 44(L) 150 - 350 x10'3/uL 11/28/2016 5:27 AM CDT [facility] MPV 11.3(H) 7.4 - 10.4 FL 11/28/2016 5:27 AM CDT [facility] ABS. NEUTROPHILS TOTAL 1.57(L) 1.60 - 8.30 x10'3/uL 11/28/2016 7:29 AM CDT [facility] ABS. NEUTROPHILS CALCULATED 1.57(L) 1.60 - 7.30 x10'3/uL 11/28/2016 7:29 AM CDT [facility] ABS. LYMPHOCYTES 0.87 0.80 - 4.70 x10'3/uL 11/28/2016 7:29 AM CDT [facility] ABS. MONOCYTES 0.20 0.00 - 1.50 x10'3/uL 11/28/2016 7:29 AM CDT [facility] ABS. EOSINOPHILS 0.17 0.00 - 0.40 x10'3/uL 11/28/2016 7:29 AM CDT [facility] ABS. BASOPHILS 0.00 0.00 - 0.20 x10'3/uL 11/28/2016 7:29 AM CDT [facility] ABS. NUCLEATED RBC'S 0.00 0.0 x10'3/uL 11/28/2016 7:29 AM CDT [facility] RBC MORPHOLOGY POLYCHROMASIA 017 7:29 AM CDT [facility] Comment:SLIGHT PLT MORPH. LOW 11/28/2016 7:29 AM CDT [facility] PLASMA SPECIMEN / Unknown 11/28/2016 5:39 AM CDT 11/28/2016 5:09 AM CDT us Generic Conversion Md [facility] Final R esult [facility] [address] [place] [address], [id number] documented in this encounter Visit Diagnoses Not on filedocumented in this encounter
--- OUTSIDE RECORDS SUMMARY | 2024-03-20 16:45 | XMS_ITS | Encounter Summary ---
Author Organization [facility] Address [address] [place] [address]. 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 [address], [id number] documented in this encounter Visit Diagnoses Not on filedocumented in this encounter
--- OUTSIDE RECORDS SUMMARY | 2024-03-20 16:45 | XMS_ITS | Encounter Summary ---
Author Organization [facility] Address [address] [place] [address]. 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
--- OUTSIDE RECORDS SUMMARY | 2024-03-20 16:45 | XMS_ITS | Encounter Summary ---
Author Organization [facility] Address [address] [place] [address]. 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 [address], [id number] documented in this encounter Visit Diagnoses Not on filedocumented in this encounter
--- OUTSIDE RECORDS SUMMARY | 2024-03-20 16:45 | XMS_ITS | Encounter Summary ---
Author Organization [facility] Address [address] [place] [address]. 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5 % 11/27/2016 7:02 AM CDT [facility] PLT 42(L) 150 - 350 x10'3/uL 11/27/2016 7:02 AM T [facility] MPV 11.3(H) 7.4 - 10.4 FL 11/27/2016 7:02 AM T [facility] ABS. NEUTROPHILS TOTAL 1.38(L) 1.60 - 8.30 x10'3/uL 11/27/2016 7:34 AM CDT [facility] ABS. NEUTROPHILS CALCULATED 1.33(L) 1.60 - 7.30 x10'3/uL 11/27/2016 7:34 AM CDT [facility] BANDS 0.05 0.00 - 1.00 x10'3/uL 11/27/2016 7:34 AM CDT [facility] ABS. LYMPHOCYTES 0.73(L) 0.80 - 4.70 x10'3/uL 11/27/2016 7:34 AM CDT [facility] ABS. MONOCYTES 0.25 0.00 - 1.50 x10'3/uL 11/27/2016 7:34 AM CDT [facility] ABS. EOSINOPHILS 0.15 0.00 - 0.40 x10'3/uL 11/27/2016 7:34 AM CDT [facility] ABS. BASOPHILS 0.00 0.00 - 0.20 x10'3/uL 11/27/2016 7:34 AM CDT [facility] ABS. NUCLEATED RBC'S 0.00 0.0 x10'3/uL 11/27/2016 7:34 AM CDT [facility] RBC MORPHOLOGY ANISOCYTOSIS 11/28/19 17 7:34 AM CDT [facility] Comment: SLIGHT POLYCHROMASIA SLIGHT PLT MORPH. LOW 11/27/2016 7:34 AM CDT [facility] PLASMA SPECIMEN / Unknown 11/27/2016 7:31 AM CDT 11/27/2016 6:54 AM CDT us Generic Conversion Md [facility] Final R esult [facility] [address] [place] [address], [id number] documented in this encounter Visit Diagnoses Not on filedocumented in this encounter
--- OUTSIDE RECORDS SUMMARY | 2024-03-20 16:45 | XMS_ITS | Encounter Summary ---
Author Organization [facility] Address [address] [place] [address]. 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 It has not been cleared or approved by the U.S. Food and Drug Administration. This assay has been validated pursuant to the CLIA regulations and is used for clinical purposes. For additional information, please refer to http://education.[employer]/faq/CMVandEBVPCR (This link is being provided for informational/ educational purposes only.) Test Performed by [facility], [facility], [address] [place], [place] Héctor Avalos M.D., Ph.D., Director of Laboratories , CLIA [id number] WHOLE BLOOD SPECIMEN / Unknown 11/29/2016 8:52 PM CDT 11/29/2016 7:53 PM CDT us Generic Conversion Md [facility] Final R esult [facility] [id number] [place], [place] , [place] [phone] [facility] [address] [place] [address], [place] [phone] [id number] documented in this encounter Visit Diagnoses Not on filedocumented in this encounter
--- OUTSIDE RECORDS SUMMARY | 2024-03-20 16:45 | XMS_ITS | Encounter Summary ---
Author Organization [facility] Address [address] [place] [address]. 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 Nov 28 2016 11:47AM AUTOMATIC PAINT SPRAYER OPERATOR documented in this encounter Plan of Treatment Not on file documented as of this encounter Visit Diagnoses Not on filedocumented in this encounter Care Teams Lamp Shade Maker Relationship Specialty Start Date End Date Hermes Ramirez III, MD [address] [facility] [address] [place] [address] PCP - General FAMILY PRACTICE 06/20/17 documented as of this encounter
--- OUTSIDE RECORDS SUMMARY | 2024-03-20 16:45 | XMS_ITS | Encounter Summary ---
Author Organization [facility] Address [address] [place] [address]. 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 Gender Identity Not on file Sexual [...] - 147 MMOL/L 11/27/2016 7:29 AM CDT [facility] POTASSIUM S/P/B 4.5 3.5 - 5.0 MMOL/L 11/27/2016 7:29 AM CDT [facility] CHLORIDE S/P/B 116(H) 98 - 107 MMOL/L 11/27/2016 7:29 AM CDT [facility] CO2 16.1(L) 22 - 29 MMOL/L 11/27/2016 7:29 AM [facility] GLUCOSE 79 70 - 109 MG/DL 11/27/2016 7:29 AM [facility] BUN 48(H) 7 - 19 MG/DL 11/27/2016 7:29 AM [facility] CREATININE S/P/B 3.12(H) 0.60 - 1.10 MG/DL 11/27/2016 7:29 AM [facility] CALCIUM S/P/B 8.0(L) 8.4 - 10.2 MG/DL 11/27/2016 7:29 AM [facility] BILIRUBIN TOTAL S/P/B 0.4 0.2 - 1.2 MG/DL 11/27/2016 7:29 AM [facility] ALKALINE PHOSPHATASE S/P/B 152(H) 37 - 98 U/L 11/27/2016 7:29 AM [facility] AST 14 5 - 35 U/L 11/27/2016 7:29 AM [facility] ALT 9 0 - 55 U/L 11/27/2016 7:29 AM [facility] TOTAL PROTEIN S/P/B 5.2(L) 6.0 - 8.3 G/DL 11/27/2016 7:29 AM [facility] ALBUMIN S/P/B 3.0(L) 3.4 - 4.9 G/DL 11/27/2016 7:29 AM [facility] ANION GAP 4.9 MMOL/L 11/27/2016 7:29 AM [facility] OSMOLALITY (CALC) 285 MOSM/KG 11/27/2016 7:29 AM [facility] EGFR NON-AFR. AMER. 17(L) >60 ML/MIN/1.7 3 M2 11/27/2016 7:29 AM [facility] EGFR AFR. AMER. 21(L) >60 ML/MIN/1.7 3 M2 11/27/2016 7:29 AM CDT [facility] PLASMA SPECIMEN / Unknown 11/27/2016 7:31 AM CDT 11/27/2016 6:54 AM CDT us Generic Conversion Md [facility] Final R esult [facility] [address] [place] [address], [id number] documented in this encounter Visit Diagnoses Not on filedocumented in this encounter
--- OUTSIDE RECORDS SUMMARY | 2024-03-20 16:46 | XMS_ITS | Encounter Summary ---
Author Organization [facility] Address [address] [place] [address]. [place] [address] [place] [address] Care Team Providers Care Computer Technology Instructor Name Role Phone Ashley ZUNIGA MD, Hermes Primary Care Provid er Encounter Details Date Type Department Care Team (Latest Contact Info) Description 11/24/[address] [facility] Medical Group Lester Winston MD [address] [place] [address] Social History Tobacco Use Types Packs/Day Years Used Date Smoking Tobacco: Never Assessed Comments Unknown Sex and Gender Information Value Date Recorded Sex Assigned at Not on file Legal Sex Female 9:15 PM RN VISITING Gender Identity Not on file Sexual Orientation [...] PM CDT Narrative 11/24/2016 9:00 PM CDT [facility] ?? [place], [place] ?? Department of Radiology ? MISHA JACKSON Ordering MD: LESTER WINSTON MD ?? Acct: [id number] ?? : 1980 Pt Type: ADM IN ?? Sex: F Ord Site: MAIN ? Study Date Accession # Procedure Code Procedure ?? 11/24/16 [id number] [facility] US Abdomen Complete ? Signed ? EXAM: [...] Dictated On: 11/24/162048 ?? Interpreted By: CONCHITA NEGRON MD ?? Transcribed On: 11/24/162048 - INF[facility] ? CC: ? LESTER WINSTON MD Procedure Note Lazara Case MD - 01/11/2018 [place], [place] Department of Radiology MISHA JACKSON Ordering MD: LESTER WINSTON MD Acct: [id number] : 1980 Pt Type: ADM IN Sex: F Ord Site: MAIN Study Date Accession # Procedure Code Procedure 11/24/16 [id number] [facility] US Abdomen Complete Signed EXAM: US Abdomen [...] on filedocumented in this encounter Care Teams Computer Technology Instructor Relationship Specialty Start Date End Date Hermes Ramirez III, MD [address] [facility] [address] [place] [address] PCP - General FAMILY PRACTICE 06/20/17 documented as of this encounter
--- OUTSIDE RECORDS SUMMARY | 2024-03-20 16:46 | XMS_ITS | Encounter Summary ---
Author Organization [facility] Address [address] [place] [address]. 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 [place], [place] ?? Department of Radiology ? MISHA JACKSON Ordering MD: DENYS QUIJANO MD ?? Acct: [id number] ?? : 1980 Pt Type: ADM IN ?? Sex: F Ord Site: MAIN ? Study Date Accession # Procedure Code Procedure ?? 11/24/16 [id number] RENBLADB Renal and Bladder Bi ? Signed [...] Procedure Note Lazara Mendoza MD - 01/11/2018 [place], [place] Department of Radiology MISHA JACKSON Ordering MD: DENYS QUIJANO MD Acct: [id number] : 1980 Pt Type: ADM IN Sex: F Ord Site: MAIN Study Date Accession # Procedure Code Procedure 11/24/16 [id number] RENBLADB US Renal and Bladder Bi Signed [...] on filedocumented in this encounter Care Teams Alterations Sewer Relationship Specialty Start Date End Date Hermes Ramirez III, MD [address] [facility] [address] [place] [address] PCP - General FAMILY PRACTICE 06/20/17 documented as of this encounter
--- OUTSIDE RECORDS SUMMARY | 2024-03-20 16:46 | XMS_ITS | Encounter Summary ---
Author Organization [facility] Address [address] [place] [address]. 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 Gender Identity Not on file Sexual [...] - 10.8 x10'3/uL 11/24/2016 7:08 AM CDT [facility] RBC 2.76(L) 4.10 - 5.40 x10'6/uL 11/24/2016 7:08 AM CDT [facility] HGB 9.3(L) 12.0 - 16.0 G/DL 11/24/2016 7:08 AM CDT [facility] HCT 26.6(L) 36.0 - 47.0 % 11/24/2016 7:08 AM CDT [facility] MCV 96.4 78.0 - 100.0 FL 11/24/2016 7:08 AM CDT [facility] MCH 33.7(H) 27.0 - 31.0 PG 11/24/2016 7:08 AM CDT [facility] MCHC 35.0 33.0 - 36.0 G/DL 11/24/2016 7:08 AM CDT [facility] RDW 12.5 11.5 - 14.5 % 11/24/2016 7:08 AM CDT [facility] PLT 40(L) 150 - 350 x10'3/uL 11/24/2016 7:08 AM CDT [facility] MPV 11.6(H) 7.4 - 10.4 FL 11/24/2016 7:08 AM CDT [facility] ABS. NEUTROPHILS TOTAL 1.38(L) 1.60 - 8.30 x10'3/uL 11/24/2016 7:51 AM CDT [facility] ABS. NEUTROPHILS CALCULATED 1.38(L) 1.60 - 7.30 x10'3/uL 11/24/2016 7:51 AM CDT [facility] ABS. LYMPHOCYTES 0.85 0.80 - 4.70 x10'3/uL 11/24/2016 7:51 AM CDT [facility] ABS. MONOCYTES 0.15 0.00 - 1.50 x10'3/uL 11/24/2016 7:51 AM CDT [facility] ABS. EOSINOPHILS 0.13 0.00 - 0.40 x10'3/uL 11/24/2016 7:51 AM CDT [facility] ABS. BASOPHILS 0.00 0.00 - 0.20 x10'3/uL 11/24/2016 7:51 AM CDT [facility] ABS. NUCLEATED RBC'S 0.00 0.0 x10'3/uL 11/24/2016 7:51 AM CDT [facility] RBC MORPHOLOGY POIKILOCYTOSIS 2016 7:51 AM CDT [facility] Comment: SLIGHT OVALOCYTES TEARDROP CELLS PLT MORPH. LOW 11/24/2016 7:51 AM CDT [facility] PLASMA SPECIMEN / Unknown 11/24/2016 7:56 AM CDT 11/24/2016 6:57 AM CDT us Generic Conversion Md [facility] Final R esult [facility] [address] [place] [address], [place] [phone] [id number] documented in this encounter Visit Diagnoses Not on filedocumented in this encounter
--- OUTSIDE RECORDS SUMMARY | 2024-03-20 16:46 | XMS_ITS | Encounter Summary ---
Author Organization [facility] Address [address] [place] [address]. 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 [address], [id number] documented in this encounter Visit Diagnoses Not on filedocumented in this encounter
--- OUTSIDE RECORDS SUMMARY | 2024-03-20 16:46 | XMS_ITS | Encounter Summary ---
Author Organization [facility] Address [address] [place] [address]. 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 Gender Identity Not on file Sexual Orientation Not on file documented as of this encounter Plan of Treatment Not on file documented as of this encounter Procedures Procedure Name Priority Date/Time Associated Diagnosis Comments MAGNESIUM Routine 11/25/2016 6:13 AM CDT documented in this encounter Results * MAGNESIUM (11/25/2016 6:13 AM CDT) MAGNESIUM 1.7 1.6 - 2.6 MG/DL 11/25/2016 5:52 AM CDT [facility] SERUM OR PLASMA SPECIMEN / Unknown 11/25/2016 6:13 AM CDT 11/25/2016 5:15 AM CDT us Generic Conversion Md [facility] Final R esult [facility] [address] [place] [address], [id number] documented in this encounter Visit Diagnoses Not on filedocumented in this encounter
--- OUTSIDE RECORDS SUMMARY | 2024-03-20 16:46 | XMS_ITS | Encounter Summary ---
Author Organization [facility] Address [address] [place] [address]. 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
--- OUTSIDE RECORDS SUMMARY | 2024-03-20 16:46 | XMS_ITS | Encounter Summary ---
Author Organization [facility] Address [address] [place] [address]. [place], [place] [address] [place] [address] Care Team Providers Care Staff Software Engineer Name Role Phone Ashley ZUNIGA MD, Hermes Perez Primary Care [facility] er Encounter Details Date Type Department Care Team (Latest Contact Info) Description 11/24/[address] 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 Department of Laboratory Medicine [address] [place] [address] , extension [phone] Facsimile: ?? Peripheral Smear Report Patient Name: IMSHA JACKSON MR#: [id number] Specimen #[id number] Source: Peripheral blood Clinical History: The patient [...] morphologically normal. Signed Out: 11/25/2016 [facility] CONVERSION 11/24/2016 11/24/2016 Narrative [facility] CONVERSION - 11/25/2016 8:05 AM CDT Result Communication: No patient communication needed at this time us Generic Conversion Md [facility] PATH[facility]Y/CYTOLOGY [place] Final Result [facility] CON[facility] documented in this encounter Visit Diagnoses Not on filedocumented in this encounter Care Teams Staff Software Engineer Relationship Specialty Start Date End Date Hermes Ramirez III, MD [address] [facility] [address] [place] [address] PCP - General FAMILY PRACTICE 06/20/17 documented as of this encounter
--- OUTSIDE RECORDS SUMMARY | 2024-03-20 16:46 | XMS_ITS | Encounter Summary ---
Author Organization [facility] Address [address] [place] [address]. 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 POTASSIUM S/P/B 4.7 3.5 - 5.0 MMOL/L 11/25/2016 5:[address] [facility] CHLORIDE S/P/B 112(H) 98 - 107 MMOL/L 11/25/2016 5:[address] [facility] CO2 21.5(L) 22 - 29 MMOL/L 11/25/2016 5:[address] [facility] GLUCOSE 94 70 - 109 MG/DL 11/25/2016 5:52 AM [facility] BUN 36(H) 7 - 19 MG/DL 11/25/2016 5:52 AM [facility] CREATININE S/P/B 3.59(H) 0.60 - 1.10 MG/DL 11/25/2016 5:52 AM [facility] CALCIUM S/P/B 7.8(L) 8.4 - 10.2 MG/DL 11/25/2016 5:52 AM [facility] BILIRUBIN TOTAL S/P/B 0.4 0.2 - 1.2 MG/DL 11/25/2016 5:52 AM [facility] ALKALINE PHOSPHATASE S/P/B 152(H) 37 - 98 U/L 11/25/2016 5:52 AM [facility] AST 15 5 - 35 U/L 11/25/2016 5:52 AM [facility] ALT 9 0 - 55 U/L 11/25/2016 5:52 AM [facility] TOTAL PROTEIN S/P/B 4.8(L) 6.0 - 8.3 G/DL 11/25/2016 5:52 AM [facility] ALBUMIN S/P/B 2.8(L) 3.4 - 4.9 G/DL 11/25/2016 5:52 AM [facility] ANION GAP 2.5 MMOL/L 11/25/2016 5:52 AM [facility] OSMOLALITY (CALC) 280 MOSM/KG 11/25/2016 5:52 AM [facility] EGFR NON-AFR. AMER. 15(L) >60 ML/MIN/1.7 3 M2 11/25/2016 5:52 AM [facility] EGFR AFR. AMER. 18(L) >60 ML/MIN/1.7 3 M2 11/25/2016 5:[address] [facility] PLASMA SPECIMEN / Unknown 11/25/2016 6:13 AM CDT 11/25/2016 5:15 AM CDT us Generic Conversion Md [facility] Final R esult [facility] [address] [place] [address], [id number] documented in this encounter Visit Diagnoses Not on filedocumented in this encounter
--- OUTSIDE RECORDS SUMMARY | 2024-03-20 16:46 | XMS_ITS | Encounter Summary ---
Author Organization [facility] Address [address] [place] [address]. 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 [address], [place] [phone] [id number] documented in this encounter Visit Diagnoses Not on filedocumented in this encounter
--- OUTSIDE RECORDS SUMMARY | 2024-03-20 16:46 | XMS_ITS | Encounter Summary ---
Author Organization [facility] Address [address] [place] [address]. 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 Gender Identity Not on file Sexual Orientation [...] - 2.3 % 11/25/2016 5:43 AM CDT [facility] ABSOLUTE RETICULOCYTE 0.02 0.02 - 0.10 x10'6/uL 11/25/2016 5:43 AM CDT [facility] IMMATURE RETIC FRACTION 5.3 3.0 - 15.9 % 11/25/2016 5:43 AM CDT [facility] RETIC HGB 36.2(H) 28.0 - 35.0 PG 11/25/2016 5:43 AM CDT [facility] PLASMA SPECIMEN / Unknown 11/25/2016 6:13 AM CDT 11/25/2016 5:15 AM CDT us Generic Conversion Md [facility] Final R esult [facility] [address] [place] [address], [id number] documented in this encounter Visit Diagnoses Not on filedocumented in this encounter
--- OUTSIDE RECORDS SUMMARY | 2024-03-20 16:46 | XMS_ITS | Encounter Summary ---
Author Organization [facility] Address [address] [place] [address]. 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 Gender Identity Not on file Sexual Orientation [...] (U) NEGATIVE NEGATIVE 11/24/2016 12:10 PM CDT [facility] BENZODIAZEPINES SCREEN (U) NEGATIVE NEGATIVE 11/24/2016 12:10 PM CDT [facility] COCAINE METABOLITES (U) NEGATIVE NEGATIVE 11/24/2016 12:10 PM CDT [facility] AMPHETAMINE (U) NEGATIVE NEGATIVE 7 12:10 PM CDT [facility] CANNABINOIDS SCREEN (U) NEGATIVE NEGATIVE 11/24/2016 12:10 PM CDT [facility] OPIATE SCREEN (U) POSITIVE-NOT CONFIRMED(A) NEGATIVE 11/24/2016 12:17 PM T [facility] Comment: POSITIVE SCREEN RESULT, IF CONFIRMATION DESIRED PLEASE CONTACT LAB WITHIN ONE WEEK. BARBITURATES SCREEN (U) NEGATIVE NEGATIVE 11/24/2016 12:10 PM CDT [facility] TRICYCLIC ANTIDEPRESSANT SCREEN (U) NEGATIVE NEGATIVE 11/24/2016 12:10 PM T [facility] URINE TOX COMMENT Unconfirmed screening results are to be used only for medical purposes. 11/24/2016 11:05 AM T [facility] CUTOFF CONCENTRATION (U) Cut-off Concentration for a positive result 11/24/2016 11:05 AM T [facility] Comment: Phencyclidine ? 25 ng/mL Benzodiazepines ? 300 ng/mL Cocaine ? 300 ng/mL Amphetamine ? 1000 ng/mL Cannabinoids ?50 ng/mL Opiates ? 300 ng/mL Barbiturates ?300 ng/mL TSA ? 1000 ng/mL URINE SPECIMEN / Unknown 11/24/2016 11:20 AM CDT 11/24/2016 11:38 AM CDT us Generic Conversion Md [facility] URINE ORDERABLES Final Result [facility] [address] [place] [address], [id number] documented in this encounter Visit Diagnoses Not on filedocumented in this encounter
--- OUTSIDE RECORDS SUMMARY | 2024-03-20 16:46 | XMS_ITS | Encounter Summary ---
Author Organization [facility] Address [address] [place] [address]. 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 [place], [place] [address] [phone] [id number] documented in this encounter Visit Diagnoses Not on filedocumented in this encounter
--- OUTSIDE RECORDS SUMMARY | 2024-03-20 16:46 | XMS_ITS | Encounter Summary ---
Author Organization [facility] Address [address] [place] [address]. 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5 % 11/25/2016 5:43 AM CDT [facility] PLT 47(L) 150 - 350 x10'3/uL 11/25/2016 5:43 AM T [facility] MPV 11.1(H) 7.4 - 10.4 FL 11/25/2016 5:43 AM CDT [facility] ABS. NEUTROPHILS TOTAL 1.19(L) 1.60 - 8.30 x10'3/uL 11/25/2016 6:33 AM CDT [facility] ABS. NEUTROPHILS CALCULATED 1.19(L) 1.60 - 7.30 x10'3/uL 11/25/2016 6:33 AM CDT [facility] ABS. LYMPHOCYTES 0.77(L) 0.80 - 4.70 x10'3/uL 11/25/2016 6:33 AM CDT [facility] ABS. MONOCYTES 0.09 0.00 - 1.50 x10'3/uL 11/25/2016 6:33 AM CDT [facility] ABS. EOSINOPHILS 0.15 0.00 - 0.40 x10'3/uL 11/25/2016 6:33 AM CDT [facility] ABS. BASOPHILS 0.00 0.00 - 0.20 x10'3/uL 11/25/2016 6:33 AM CDT [facility] ABS. NUCLEATED RBC'S 0.00 0.0 x10'3/uL 11/25/2016 6:33 AM CDT [facility] RBC MORPHOLOGY POLYCHROMASIA 017 6:33 AM CDT [facility] Comment: SLIGHT POIKILOCYTOSIS SLIGHT OVALOCYTES TEARDROP CELLS PLT MORPH. LOW 11/25/2016 6:33 AM CDT [facility] PLASMA SPECIMEN / Unknown 11/25/2016 6:13 AM CDT 11/25/2016 5:15 AM CDT us Generic Conversion Md [facility] Final R esult [facility] [address] [place] [address], [place] [phone] [id number] documented in this encounter Visit Diagnoses Not on filedocumented in this encounter
--- OUTSIDE RECORDS SUMMARY | 2024-03-20 16:46 | XMS_ITS | Encounter Summary ---
Author Organization [facility] Address [address] [place] [address]. 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
--- OUTSIDE RECORDS SUMMARY | 2024-03-20 16:46 | XMS_ITS | Encounter Summary ---
Author Organization [facility] Address [address] [place] [address]. 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 CHLORIDE S/P/B 116(H) 98 - 107 MMOL/L 11/24/2016 7:35 AM CDT [facility] CO2 12.5(L) 22 - 29 MMOL/L 11/24/2016 7:35 AM T [facility] GLUCOSE 94 70 - 109 MG/DL 11/24/2016 7:35 AM [facility] BUN 33(H) 7 - 19 MG/DL 11/24/2016 7:35 AM [facility] CREATININE S/P/B 3.86(H) 0.60 - 1.10 MG/DL 11/24/2016 7:35 AM T [facility] CALCIUM S/P/B 8.1(L) 8.4 - 10.2 MG/DL 11/24/2016 7:35 AM [facility] BILIRUBIN TOTAL S/P/B 0.5 0.2 - 1.2 MG/DL 11/24/2016 7:35 AM [facility] ALKALINE PHOSPHATASE S/P/B 179(H) 37 - 98 U/L 11/24/2016 7:35 AM T [facility] AST 19 5 - 35 U/L 11/24/2016 7:35 AM [facility] ALT 11 0 - 55 U/L 11/24/2016 7:35 AM [facility] TOTAL PROTEIN S/P/B 5.5(L) 6.0 - 8.3 G/DL 11/24/2016 7:35 AM [facility] ALBUMIN S/P/B 3.2(L) 3.4 - 4.9 G/DL 11/24/2016 7:35 AM [facility] ANION GAP 7.5 MMOL/L 11/24/2016 7:35 AM [facility] OSMOLALITY (CALC) 279 MOSM/KG 11/24/2016 7:35 AM [facility] EGFR NON-AFR. AMER. 13(L) >60 ML/MIN/1.7 3 M2 11/24/2016 7:35 AM T [facility] EGFR AFR. AMER. 16(L) >60 ML/MIN/1.7 3 M2 11/24/2016 7:35 AM CDT [facility] PLASMA SPECIMEN / Unknown 11/24/2016 7:56 AM CDT 11/24/2016 6:57 AM CDT us Generic Conversion Md [facility] Final R esult [facility] [address] [place] [id number], [id number] documented in this encounter Visit Diagnoses Not on filedocumented in this encounter
--- OUTSIDE RECORDS SUMMARY | 2024-03-20 16:46 | XMS_ITS | Encounter Summary ---
Author Organization [facility] Address [address] [place] [address]. 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 RBC 2.87(L) 4.10 - 5.40 x10'6/uL 11/24/2016 10:[address] [facility] HGB 9.5(L) 12.0 - 16.0 G/DL 11/24/2016 10:[address] [facility] HCT 27.2(L) 36.0 - 47.0 % 11/24/2016 10:[address] [facility] MCV 94.8 78.0 - 100.0 FL 11/24/2016 10:[address] [facility] MCH 33.1(H) 27.0 - 31.0 PG 11/24/2016 10:[address] [facility] MCHC 34.9 33.0 - 36.0 G/DL 11/24/2016 10:[address] [facility] RDW 12.3 11.5 - 14.5 % 11/24/2016 10:[address] [facility] PLT 48(L) 150 - 350 x10'3/uL 11/24/2016 10:[address] [facility] MPV 10.8(H) 7.4 - 10.4 FL 11/24/2016 10:[address] [facility] ABS. NEUTROPHILS TOTAL 1.54(L) 1.60 - 8.30 x10'3/uL 11/24/2016 10:[address] [facility] ABS. LYMPHOCYTES 1.09 0.80 - 4.70 x10'3/uL 11/24/2016 10:[address] [facility] ABS. MONOCYTES 0.16 0.00 - 1.50 x10'3/uL 11/24/2016 10:[address] [facility] ABS. EOSINOPHILS 0.21 0.00 - 0.40 x10'3/uL 11/24/2016 10:[address] [facility] ABS. BASOPHILS 0.00 0.00 - 0.20 x10'3/uL 11/24/2016 10:[address] [facility] ABS. IMMATURE GRANULOCYTES 0.00 0.00 - 0.03 x10'3/uL 11/24/2016 10:[address] [facility] ABS. NUCLEATED RBC'S 0.00 0.0 x10'3/uL 11/24/2016 10:[address] [facility] PLASMA SPECIMEN / Unknown 11/24/2016 10:53 AM CDT 11/24/2016 9:55 AM CDT us Generic Conversion Md [facility] Final R esult Performing Organization Address City/State/[facility] Co de Phone Number [facility] [address] [place] [address], [id number] documented in this encounter Visit Diagnoses Not on filedocumented in this encounter
--- OUTSIDE RECORDS SUMMARY | 2024-03-20 16:46 | XMS_ITS | Encounter Summary ---
Author Organization [facility] Address [address] [place] [address]. [place], [place] [address] [place] [address] Care Team Providers Care Polysomnographic Technician Name Role Phone Ashley ZUNIGA MD, Hermes Perez Primary Care Provid er Encounter Details Date Type Department Care Team (Latest Contact Info) Description 11/16/2016 Abstract [facility] Victor Manuel Albright MD 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 Date/Time Dictated: 11/16/2016 13:10 p.m. Transcribed Date/Time: 11/16/2016 15:13 p.m. Surgery Date: 09/21/2016 cc: Valentín B ChoLucero cade M.D. Fawwad I Zaidi, M.D. 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
--- OUTSIDE RECORDS SUMMARY | 2024-03-20 16:46 | XMS_ITS | Encounter Summary ---
Author Organization [facility] Address [address] [place] [address]. 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 [place], [place] [address] [phone] [id number] documented in this encounter Visit Diagnoses Not on filedocumented in this encounter
--- OUTSIDE RECORDS SUMMARY | 2024-03-20 16:46 | XMS_ITS | Encounter Summary ---
Author Organization [facility] Address [address] [place] [address]. 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 Gender Identity Not on file Sexual [...] - 147 MMOL/L 11/24/2016 10:55 AM CDT [facility] POTASSIUM S/P/B 4.8 3.5 - 5.0 MMOL/L 11/24/2016 10:55 AM CDT [facility] CHLORIDE S/P/B 114(H) 98 - 107 MMOL/L 11/24/2016 10:55 AM CDT [facility] CO2 18.8(L) 22 - 29 MMOL/L 11/24/2016 10:55 AM [facility] GLUCOSE 90 70 - 109 MG/DL 11/24/2016 10:55 AM [facility] BUN 30(H) 7 - 19 MG/DL 11/24/2016 10:55 AM [facility] CREATININE S/P/B 3.84(H) 0.60 - 1.10 MG/DL 11/24/2016 10:55 AM [facility] CALCIUM S/P/B 8.4 8.4 - 10.2 MG/DL 11/24/2016 10:55 AM [facility] BILIRUBIN TOTAL S/P/B 0.5 0.2 - 1.2 MG/DL 11/24/2016 10:55 AM [facility] ALKALINE PHOSPHATASE S/P/B 193(H) 37 - 98 U/L 11/24/2016 10:55 AM [facility] AST 18 5 - 35 U/L 11/24/2016 10:55 AM [facility] ALT 11 0 - 55 U/L 11/24/2016 10:55 AM [facility] TOTAL PROTEIN S/P/B 6.0 6.0 - 8.3 G/DL 11/24/2016 10:55 AM [facility] ALBUMIN S/P/B 3.4 3.4 - 4.9 G/DL 11/24/2016 10:55 AM [facility] ANION GAP 4.2 MMOL/L 11/24/2016 10:55 AM [facility] OSMOLALITY (CALC) 280 MOSM/KG 11/24/2016 10:55 AM [facility] EGFR NON-AFR. AMER. 13(L) >60 ML/MIN/1.7 3 M2 11/24/2016 10:55 AM [facility] EGFR AFR. AMER. 16(L) >60 ML/MIN/1.7 3 M2 11/24/2016 10:55 AM CDT [facility] PLASMA SPECIMEN / Unknown 11/24/2016 10:53 AM CDT 11/24/2016 9:55 AM CDT us Generic Conversion Md [facility] Final R esult Performing Organization Address City/State/[facility] Co de Phone Number [facility] [address] [place] [address], [id number] documented in this encounter Visit Diagnoses Not on filedocumented in this encounter
--- OUTSIDE RECORDS SUMMARY | 2024-03-20 16:46 | XMS_ITS | Encounter Summary ---
Author Organization [facility] Address [address] [place] [address]. [place] [address] [place] [address] Care Team Providers Care Billet Header Name Role Phone Unavailable Primary Care Provider Unavailabl e Encounter Details Date Type Department Care Team (Late st Contact Info) Description 11/25/2016 Orders [place] [address] , Generic Conversion, Social History Tobacco Use Types Packs/Day Years Used Date Smoking Tobacco: Never Assessed Comments Unknown Sex and Gender Information Value Date Recorded Sex Assigned at Not on file Legal Sex Female 9:15 PM REGIONAL PROJECT MANAGER Gender Identity Not on file Sexual [...] - 220 UNITS/L 11/25/2016 5:51 AM CDT [facility] SERUM OR PLASMA SPECIMEN / Unknown 11/25/2016 6:13 AM CDT 11/25/2016 5:15 AM CDT us Generic Conversion Md [facility] Final R esult [facility] [address] [place] [address], [id number] documented in this encounter Visit Diagnoses Not on filedocumented in this encounter
--- OUTSIDE RECORDS SUMMARY | 2024-03-20 16:46 | XMS_ITS | Encounter Summary ---
Author Organization [facility] Address [address] [place] [address]. [place] [address] [place] [address] Care Team Providers Care Hook And Eye Sewing Machine Operator Name Role Phone Unavailable Primary Care Provider Unavailabl e Encounter Details Date Type Department Care Team (Late st Contact Info) Description 11/24/2016 Orders [place] [address] , Generic Conversion, Social History Tobacco Use Types Packs/Day Years Used Date Smoking Tobacco: Never Assessed Comments Unknown Sex and Gender Information Value Date Recorded Sex Assigned at Not on file Legal Sex Female 9:15 PM MANAGER NEWS Gender Identity Not on file Sexual Orientation [...] (U) 19.4 MMOL/L 11/24/2016 3:09 PM CDT [facility] URINE SPECIMEN / Unknown 11/24/2016 2:20 PM CDT 11/24/2016 2:28 PM CDT us Generic Conversion Md [facility] URINE ORDERABLES Final Result [facility] [address] [place] [address], [place] [phone] [id number] documented in this encounter Visit Diagnoses Not on filedocumented in this encounter
--- OUTSIDE RECORDS SUMMARY | 2024-03-20 16:46 | XMS_ITS | Encounter Summary ---
Author Organization [facility] Address [address] [place] [address]. [place], [place] [address] [place] [address] Care Team Providers Care Physician Vice President Name Role Phone Unavailable Primary Care Provider Unavailabl e Encounter Details Date Type Department Care Team (Late st Contact Info) Description 11/24/2016 Abstract [facility]mediate [facility] Unit [address] [place] [address] Eric Kovacs MD [place], [place], MD Social History Tobacco Use Types Packs/Day Years Used Date Smoking Tobacco: Never Assessed Comments Unknown Sex and Gender Information Value Date Recorded Sex Assigned at Not on file Legal Sex Female 9:15 PM CONCRETE FORM SETTER AND FINISHER Gender Identity Not on file Sexual Orientation Not on file documented as of this encounter Plan of Treatment Not on file documented as of this encounter Visit Diagnoses Diagnosis Acute kidney failure (CMS/HCC) Acute kidney failure, unspecified documented in this encounter
--- OUTSIDE RECORDS SUMMARY | 2024-03-20 16:46 | XMS_ITS | Encounter Summary ---
Author Organization [facility] Address [address] [place] [address]. [place], [place] [address] [place] [address] Care Team Providers Care Machine Feed Operator Name Role Phone Ashley ZUNIGA MD, Hermes Perez Primary Care [facility] er Encounter Details Date Type Department Care Team (Latest Contact Info) Description 11/24/2016 Abstract [facility] , Lazara Lange MD Social History Tobacco Use Types Packs/Day Years Used Date Smoking Tobacco: Never Assessed Comments Unknown Sex and Gender Information Value Date Recorded Sex Assigned at Not on file Legal Sex Female 9:15 PM SECURITY SYSTEMS SPECIALIST Gender Identity Not on file Sexual [...] AM CDT Narrative 11/24/2016 11:22 AM CDT [facility] ?? [place], [place] ?? Department of Radiology ? MISHA JACKSON Ordering MD: DENYS QUIJANO MD ?? Acct: [id number] ?? : 1980 Pt Type: ADM IN [...] Procedure Note Lazara Mendoza MD - 01/10/2018 [place], [place] Department of Radiology MISHA JACKSON MD: DENYS QUIJANO MD Acct: [id number] : 1980 Pt Type: ADM IN Sex: F Ord Site: MAIN Study Date Accession # Procedure Code Procedure [id number] [id number] XR Chest 2 View Signed Examination: [...] on filedocumented in this encounter Care Teams Machine Feed Operator Relationship Specialty Start Date End Date Hermes Ramirez III, MD [address] [facility] [address] [place] [address] PCP - General FAMILY PRACTICE 06/20/17 documented as of this encounter
--- OUTSIDE RECORDS SUMMARY | 2024-03-20 16:46 | XMS_ITS | Encounter Summary ---
Author Organization [facility] Address [address] [place] [address]. [place] [address] [place] [address] Care Team Providers Care Assistant Production Manager Name Role Phone Unavailable Primary Care Provider Unavailabl e Encounter Details Date Type Department Care Team (Late st Contact Info) Description 11/24/2016 Orders [place] [address] , Generic Conversion, Social History Tobacco Use Types Packs/Day Years Used Date Smoking Tobacco: Never Assessed Comments Unknown Sex and Gender Information Value Date Recorded Sex Assigned at Not on file Legal Sex Female 9:15 PM TROUBLE SHOOTER Gender Identity Not on file Sexual Orientation Not on file documented as of this encounter Plan of Treatment Not on file documented as of this encounter Procedures Procedure Name Priority Date/Time Associated Diagnosis Comments TACROLIMUS Routine 11/24/2016 8:54 PM CDT documented in this encounter Results * TACROLIMUS (11/24/2016 8:54 PM CDT) TACROLIMUS 9.1 mcg/L 11/26/2016 10:20 PM CDT [facility] Comment: No definitive therapeutic or toxic ranges have been established. Optimal blood drug levels are influenced by type of transplant, patient response, time post- transplant, co-administration of other drugs, and drug formulation. The following trough range is a suggested guideline: ? 5.0-20.0 mcg/L Test Performed by Viraj Greer, [facility], [address] [place], [place] Héctor Avalos M.D., Ph.D., Director of Laboratories , [facility] [id number] WHOLE BLOOD SPECIMEN / Unknown 11/24/2016 8:54 PM CDT 11/24/2016 7:56 PM CDT us Generic Conversion Md [facility] Final R esult [facility] [address] [place], [place] , [place] [phone] documented in this encounter Visit Diagnoses Not on filedocumented in this encounter
--- OUTSIDE RECORDS SUMMARY | 2024-03-20 16:46 | XMS_ITS | Encounter Summary ---
Author Organization [facility] Address [address] [place] [address]. [place] [address] [place] [address] Care Team Providers Care Low Altitude Air Defense Officer Name Role Phone Unavailable Primary Care Provider Unavailabl e Encounter Details Date Type Department Care Team (Late st Contact Info) Description 11/25/2016 Orders [place] [address] , Generic Conversion, Social History Tobacco Use Types Packs/Day Years Used Date Smoking Tobacco: Never Assessed Comments Unknown Sex and Gender Information Value Date Recorded Sex Assigned at Not on file Legal Sex Female 9:15 PM STERILE PRODUCTS PROCESSOR Gender Identity Not on file Sexual [...] 0.13 <0.6 mg/dL 11/25/2016 5:51 AM CDT [facility] SERUM OR PLASMA SPECIMEN / Unknown 11/25/2016 6:13 AM CDT 11/25/2016 5:15 AM CDT us Generic Conversion Md [facility] Final R esult [facility] [address] [place] [address], [id number] documented in this encounter Visit Diagnoses Not on filedocumented in this encounter
--- OUTSIDE RECORDS SUMMARY | 2024-03-20 16:46 | XMS_ITS | Encounter Summary ---
Author Organization [facility] Address [address] [place] [address]. [place], [place] [address] [place] [address] Care Team Providers Care Storehouse Clerk Name Role Phone Ashley ZUNIGA MD, Hermes Perez Primary Care Provid er Encounter Details Date Type Department Care Team (Late st Contact Info) Description 10/24/2016 Abstract [facility] Gastroenterology - [place] [address] [place] [address], [id number] [place] [address] Valentín Crum MD [address] [place] [address] Social History Tobacco Use Types Packs/Day Years Used Date Smoking Tobacco: Never Assessed Comments Unknown Sex and Gender Information Value Date Recorded Sex Assigned at Not on file Legal Sex Female 9:15 PM FLAKING ROLL OPERATOR Gender Identity Not on file Sexual [...] atresia. The patient has been followed at [facility] for a number of years. Her last [...] does not wish to follow up at [facility] secondary to the distance she has to [...] 1. Carafate 1 GM Oral Tablet; Therapy: (Recorded:[id number]) to Recorded Dispense: 0 Days ; #: Sufficient TABS; Refill: 0; BHAVANA = N; Record; Last Updated By: Jennifer Gordon; 10/24/2016 1:47:13 PM 2. Prograf 1 MG Oral Capsule; TAKE 4 MG Every twelve hours; Therapy: (Recorded:[id number]) to Recorded Dispense: 0 Days ; #: Sufficient CAPS; Refill: 0; BHAVANA = N; Record; Last Updated By: Nakita Arciniega; 09/02/2010 11:01:06 AM 3. Protonix 20 MG Oral Tablet Delayed Release; Therapy: (Recorded:[id number]) to Recorded Dispense: 0 Days ; #: Sufficient TBEC; Refill: 0; BHAVANA = N; Record; Last Updated By: Jennifer Gordon; 10/24/2016 1:47:13 PM 4. Sodium Bicarbonate 325 MG Oral Tablet; Therapy: (Recorded:[id number]) to Recorded Dispense: 0 Days ; #: Sufficient TABS; Refill: 0; BHAVANA = N; Record; Last Updated By: Jennifer Gordon; 10/24/2016 1:47:13 PM Allergies 1. Aspirin TABS Recorded By: Emily Pichardo; 05/19/2010 6:39:28 PM 2. Erythromycin Derivatives Recorded By: Emily Pichardo; 05/19/2010 6:39:28 PM Vitals Recorded: [id number] 01:47PM Heart Rate 83 Systolic 122 Diastolic [...] Status:Hold For - Manual Activation; Requested for:24Oct2016; Perform:[facility]; Due:[id number];Ordered; For:Abdominal pain, Pancreatitis, Transplanted liver;Ordered By:Valentín Crum; 2. CMP (Comprehensive Metabolic Profile); Status:Hold For - Manual Activation; Requested for:24Oct2016; Perform:[facility]; Due:[id number];Ordered; For:Abdominal pain, Pancreatitis, Transplanted liver;Ordered By:Valentín Crum; 3. Lipase; Status:Hold For - Manual Activation; Requested for:24Oct2016; Perform:[facility]; Due:[id number];Ordered; For:Abdominal pain, Pancreatitis, Transplanted liver;Ordered By:Valentín Crum; 4. Tacrolimus; Status:Hold For - Manual Activation; Requested for:[id number]; Perform:[facility]; Due:[id number];Ordered; For:Abdominal pain, Pancreatitis, Transplanted liver;Ordered By:Valentín Crum; [...] followup with the liver transplant center at [facility] where she had a prior transplant. She [...] Valentín Crum M.D.; Oct 24 2016 2:55PM FLAKING ROLL OPERATOR (Author) documented in this encounter Plan of Treatment Not on file documented as of this encounter Visit Diagnoses Not on filedocumented in this encounter Care Teams Storehouse Clerk Relationship Specialty Start Date End Date Hermes Ramirez III, MD [address] [facility] [address] [place] [address] PCP - General FAMILY PRACTICE 06/20/17 documented as of this encounter
--- OUTSIDE RECORDS SUMMARY | 2024-03-20 16:46 | XMS_ITS | Encounter Summary ---
Author Organization [facility] Address [address] [place] [address]. [place] [address] [place] [address] Care Team Providers Care Inspector Bullet Slugs Name Role Phone Unavailable Primary Care Provider Unavailabl e Encounter Details Date Type Department Care Team (Late st Contact Info) Description 11/24/2016 Orders Only [place] [address] , Generic Conversion, Social History Tobacco Use Types Packs/Day Years Used Date Smoking Tobacco: Never Assessed Comments Unknown Sex and Gender Information Value Date Recorded Sex Assigned at Not on file Legal Sex Female 9:15 PM MARKETING COMMUNICATIONS COORDINATOR Gender Identity Not on file Sexual [...] PATHOLOGIST FOR REVIEW 11/24/2016 10:11 AM CDT [facility] NOT REQUIRED 11/24/2016 10:5 3 AM CDT 11/24/2016 9:55 AM CDT us Generic Conversion Md [facility] Final R esult [facility] [address] [place], [place] [address] [phone] documented in this encounter Visit Diagnoses Not on filedocumented in this encounter
--- OUTSIDE RECORDS SUMMARY | 2024-03-20 16:46 | XMS_ITS | Encounter Summary ---
Author Organization [facility] Address [address] [place] [address]. [place] [address] [place] [address] Care Team Providers Care Sales Process Manager Name Role Phone Unavailable Primary Care Provider Unavailabl e Encounter Details Date Type Department Care Team (Late st Contact Info) Description 11/24/2016 Orders [place] [address] , Generic Conversion, Social History Tobacco Use Types Packs/Day Years Used Date Smoking Tobacco: Never Assessed Comments Unknown Sex and Gender Information Value Date Recorded Sex Assigned at Not on file Legal Sex Female 9:15 PM LAY OUT TECHNICIAN Gender Identity Not on file Sexual [...] (U) 217 MG/DL 11/24/2016 3:09 PM CDT [facility] URINE SPECIMEN / Unknown 11/24/2016 2:20 PM CDT 11/24/2016 2:28 PM CDT us Generic Conversion Md [facility] URINE ORDERABLES Final Result [facility] [address] [place] [address], [place] [phone] [id number] documented in this encounter Visit Diagnoses Not on filedocumented in this encounter
--- OUTSIDE RECORDS SUMMARY | 2024-03-20 16:47 | XMS_ITS | Encounter Summary ---
Author Organization [facility] Address [address] [place] [address]. [place], [place] [address] [place] [address] Care Team Providers Care Instructional Services Librarian Name Role Phone Ashley ZUNIGA MD, Hermes Perez Primary Care Provid er Encounter Details Date Type Department Care Team (Latest Contact Info) Description 09/25/[address] [facility] Social History Tobacco Use Types Packs/Day Years Used Date Smoking Tobacco: Never Assessed Comments Unknown Sex and Gender Information Value Date Recorded Sex Assigned at Not on file Legal Sex Female 9:15 PM PROGRAM PROJECT MANAGER Gender Identity Not on file Sexual Orientation Not on file documented as of this encounter Plan of Treatment Not on file documented as of this encounter Visit Diagnoses Not on filedocumented in this encounter Care Teams Instructional Services Librarian Relationship Specialty Start Date End Date Hermes Ramirez III, MD [address] [facility] [address] [place] [address] PCP - General FAMILY PRACTICE 06/20/17 documented as of this encounter
--- OUTSIDE RECORDS SUMMARY | 2024-03-20 16:47 | XMS_ITS | Encounter Summary ---
Author Organization [facility] Address [address] [place] [address]. [place] [address] [place] [address] Care Team Providers Care Specialized Developer Name Role Phone Unavailable Primary Care Provider Unavailabl e Encounter Details Date Type Department Care Team (Late st Contact Info) Description 09/22/2016 Orders Only [place] [address] , Generic Conversion, Social History Tobacco Use Types Packs/Day Years Used Date Smoking Tobacco: Never Assessed Comments Unknown Sex and Gender Information Value Date Recorded Sex Assigned at Not on file Legal Sex Female 9:15 PM PLASTIC SHEETS FINISHING SUPERVISOR Gender Identity Not on file [...] - 78 UNITS/L 09/22/2016 5:50 AM CDT [facility] SERUM OR PLASMA SPECIMEN / Unknown 09/22/2016 6:17 AM CDT 09/22/2016 5:18 AM CDT us Generic Conversion Md [facility] Final R esult [facility] [address] [place] [address], [place] [phone] [id number] documented in this encounter Visit Diagnoses Not on filedocumented in this encounter
--- OUTSIDE RECORDS SUMMARY | 2024-03-20 16:47 | XMS_ITS | Encounter Summary ---
Author Organization [facility] Address [address] [place] [address]. [place] [address] [place] [address] Care Team Providers Care Garment Examiner Name Role Phone Unavailable Primary Care Provider Unavailabl e Encounter Details Date Type Department Care Team (Late st Contact Info) Description 09/23/2016 Orders [place] [address] , Generic Conversion, Social History Tobacco Use Types Packs/Day Years Used Date Smoking Tobacco: Never Assessed Comments Unknown Sex and Gender Information Value Date Recorded Sex Assigned at Not on file Legal Sex Female 9:15 PM DIRECTOR OF BUSINESS CONTINUITY Gender Identity Not on file Sexual Orientation [...] - 147 MMOL/L 09/23/2016 5:02 AM CDT [facility] POTASSIUM S/P/B 4.2 3.5 - 5.0 MMOL/L 09/23/2016 5:02 AM CDT [facility] CHLORIDE S/P/B 118(H) 98 - 107 MMOL/L 09/23/2016 5:02 AM CDT [facility] CO2 18.0(L) 22 - 29 MMOL/L 09/23/2016 5:02 AM CDT [facility] GLUCOSE 119(H) 70 - 109 MG/DL 09/23/2016 5:02 AM T [facility] BUN 37(H) 7 - 19 MG/DL 09/23/2016 5:02 AM CDT [facility] CREATININE S/P/B 3.47(H) 0.60 - 1.10 MG/DL 09/23/2016 5:02 AM CDT [facility] CALCIUM S/P/B 7.7(L) 8.4 - 10.2 MG/DL 09/23/2016 5:02 AM T [facility] EGFR NON-AFR. AMER. 15(L) >60 ML/MIN/1.7 3 M2 09/23/2016 5:02 AM T [facility] EGFR AFR. AMER. 18(L) >60 ML/MIN/1.7 3 M2 09/23/2016 5:02 AM T [facility] ANION GAP 4.0 MMOL/L 09/23/2016 5:02 AM T [facility] OSMOLALITY (CALC) 289 MOSM/KG 09/23/2016 5:02 AM T [facility] PLASMA SPECIMEN / Unknown 09/23/2016 5:30 AM CDT 09/23/2016 4:31 AM CDT us Generic Conversion Md [facility] Final R esult [facility] [address] [place] [address], [id number] documented in this encounter Visit Diagnoses Not on filedocumented in this encounter
--- OUTSIDE RECORDS SUMMARY | 2024-03-20 16:47 | XMS_ITS | Encounter Summary ---
Author Organization [facility] Address [address] [place] [address]. [place] [address] [place] [address] Care Team Providers Care Gas Or Water Meter Installer Name Role Phone Unavailable Primary Care Provider Unavailabl e Encounter Details Date Type Department Care Team (Late st Contact Info) Description 09/24/2016 Orders [place] [address] , Generic Conversion, Social History Tobacco Use Types Packs/Day Years Used Date Smoking Tobacco: Never Assessed Comments Unknown Sex and Gender Information Value Date Recorded Sex Assigned at Not on file Legal Sex Female 9:15 PM DIE MAKER BENCH STAMPING Gender Identity Not on file Sexual Orientation [...] - 10.8 x10'3/uL 09/24/2016 7:25 AM CDT [facility] RBC 2.46(L) 4.10 - 5.40 x10'6/uL 09/24/2016 7:25 AM CDT [facility] HGB 8.4(L) 12.0 - 16.0 G/DL 09/24/2016 7:25 AM CDT [facility] HCT 24.0(L) 36.0 - 47.0 % 09/24/2016 7:25 AM CDT [facility] MCV 97.6 78.0 - 100.0 FL 09/24/2016 7:25 AM CDT [facility] MCH 34.1(H) 27.0 - 31.0 PG 09/24/2016 7:25 AM CDT [facility] MCHC 35.0 33.0 - 36.0 G/DL 09/24/2016 7:25 AM CDT [facility] RDW 12.5 11.5 - 14.5 % 09/24/2016 7:25 AM CDT [facility] PLT 51(L) 150 - 350 x10'3/uL 09/24/2016 7:25 AM CDT [facility] MPV 12.0(H) 7.4 - 10.4 FL 09/24/2016 7:25 AM CDT [facility] ABS. NEUTROPHILS TOTAL 1.84 1.60 - 8.30 x10'3/uL 09/24/2016 8:57 AM CDT [facility] ABS. NEUTROPHILS CALCULATED 1.70 1.60 - 7.30 x10'3/uL 09/24/2016 8:57 AM CDT [facility] BANDS 0.11 0.00 - 1.00 x10'3/uL 09/24/2016 8:57 AM CDT [facility] ABS. LYMPHOCYTES 0.35(L) 0.80 - 4.70 x10'3/uL 09/24/2016 8:57 AM CDT [facility] ABS. MONOCYTES 0.30 0.00 - 1.50 x10'3/uL 09/24/2016 8:57 AM CDT [facility] ABS. EOSINOPHILS 0.22 0.00 - 0.40 x10'3/uL 09/24/2016 8:57 AM CDT [facility] ABS. BASOPHILS 0.00 0.00 - 0.20 x10'3/uL 09/24/2016 8:57 AM CDT [facility] ABS. METAMYELOCYTES 0.03(H) 0.00 x10'3/uL 09/24/2016 8:57 AM CDT [facility] ABS. NUCLEATED RBC'S 0.00 0.0 x10'3/uL 09/24/2016 8:57 AM CDT [facility] RBC MORPHOLOGY ANISOCYTOSIS 09/25/19 8:57 AM CDT [facility] Comment: SLIGHT POIKILOCYTOSIS SLIGHT OVALOCYTES WBC MORPHOLOGY REACTIVE LYMPHS 09/24 8:57 AM CDT [facility] PLT MORPH. LOW 09/24/2016 8:57 AM CDT [facility] PLASMA SPECIMEN / Unknown 09/24/2016 7:30 AM CDT 09/24/2016 6:35 AM CDT us Generic Conversion Md [facility] Final R esult [facility] [address] [place] [address], [id number] documented in this encounter Visit Diagnoses Not on filedocumented in this encounter
--- OUTSIDE RECORDS SUMMARY | 2024-03-20 16:47 | XMS_ITS | Encounter Summary ---
Author Organization [facility] Address [address] [place] [address]. [place] [address] [place] [address] Care Team Providers Care Retail Sales Teammate Name Role Phone Unavailable Primary Care Provider Unavailabl e Encounter Details Date Type Department Care Team (Late st Contact Info) Description 09/22/2016 Orders Only [place] [address] , Generic Conversion, Social History Tobacco Use Types Packs/Day Years Used Date Smoking Tobacco: Never Assessed Comments Unknown Sex and Gender Information Value Date Recorded Sex Assigned at Not on file Legal Sex Female 9:15 PM BRICK MASON Gender Identity Not on file Sexual Orientation Not on file documented as of this encounter Plan of Treatment Not on file documented as of this encounter Procedures Procedure Name Priority Date/Time Associated Diagnosis Comments AMYLASE Routine 09/22/2016 6:17 AM CDT documented in this encounter Results * AMYLASE (09/22/2016 6:17 AM CDT) AMYLASE S/P/B 31 25 - 125 UNITS/L 09/22/2016 5:50 AM CDT [facility] SERUM OR PLASMA SPECIMEN / Unknown 09/22/2016 6:17 AM CDT 09/22/2016 5:18 AM CDT us Generic Conversion Md [facility] Final R esult [facility] [address] [place], [place] [address] [phone] [id number] documented in this encounter Visit Diagnoses Not on filedocumented in this encounter
--- OUTSIDE RECORDS SUMMARY | 2024-03-20 16:47 | XMS_ITS | Encounter Summary ---
Author Organization [facility] Address [address] [place] [address]. [place], [place] [address] [place] [address] Care Team Providers Care Wealth Management Manager Name Role Phone Ashley ZUNIGA MD, Hermes Perez Primary Care Provid er Encounter Details Date Type Department Care Team (Latest Contact Info) Description 09/22/2016 Abstract [facility] Social History Tobacco Use Types Packs/Day Years Used Date Smoking Tobacco: Never Assessed Comments Unknown Sex and Gender Information Value Date Recorded Sex Assigned at Not on file Legal Sex Female 9:15 PM CHARTER BOAT OPERATOR Gender Identity Not on file Sexual Orientation Not on file documented as of this encounter Plan of Treatment Not on file documented as of this encounter Visit Diagnoses Not on filedocumented in this encounter Care Teams Wealth Management Manager Relationship Specialty Start Date End Date Hermes Ramirez III, MD [address] [facility] [address] [place] [address] PCP - General FAMILY PRACTICE 06/20/17 documented as of this encounter
--- OUTSIDE RECORDS SUMMARY | 2024-03-20 16:47 | XMS_ITS | Encounter Summary ---
Author Organization [facility] Address [address] [place] [address]. [place], [place] [address] [place] [address] Care Team Providers Care Mold Carpenter Name Role Phone Ashley ZUNIGA MD, Hermes Perez Primary Care Provid er Encounter Details Date Type Department Care Team (Latest Contact Info) Description 09/23/2016 Abstract [facility] Social History Tobacco Use Types Packs/Day Years Used Date Smoking Tobacco: Never Assessed Comments Unknown Sex and Gender Information Value Date Recorded Sex Assigned at Not on file Legal Sex Female 9:15 PM METAL SPRAYER Gender Identity Not on file Sexual Orientation Not on file documented as of this encounter Plan of Treatment Not on file documented as of this encounter Visit Diagnoses Not on filedocumented in this encounter Care Teams Mold Carpenter Relationship Specialty Start Date End Date Hermes Ramirez III, MD [address] [facility] [address] [place] [address] PCP - General FAMILY PRACTICE 06/20/17 documented as of this encounter
--- OUTSIDE RECORDS SUMMARY | 2024-03-20 16:47 | XMS_ITS | Encounter Summary ---
Author Organization [facility] Address [address] [place] [address]. [place], [place] [address] [place] [address] Care Team Providers Care Math Teacher Name Role Phone Ashley ZUNIGA MD, Hermes Perez Primary Care Provid er Encounter Details Date Type Department Care Team (Latest Contact Info) Description 09/29/2016 Abstract [facility] Social History Tobacco Use Types Packs/Day Years Used Date Smoking Tobacco: Never Assessed Comments Unknown Sex and Gender Information Value Date Recorded Sex Assigned at Not on file Legal Sex Female 9:15 PM MACHINE CEMENTER Gender Identity Not on file Sexual Orientation Not on file documented as of this encounter Plan of Treatment Not on file documented as of this encounter Visit Diagnoses Not on filedocumented in this encounter Care Teams Math Teacher Relationship Specialty Start Date End Date Hermes Ramirez III, MD [address] [facility] [address] [place] [address] PCP - General FAMILY PRACTICE 06/20/17 documented as of this encounter
--- OUTSIDE RECORDS SUMMARY | 2024-03-20 16:47 | XMS_ITS | Encounter Summary ---
Author Organization [facility] Address [address] [place] [address]. 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
--- OUTSIDE RECORDS SUMMARY | 2024-03-20 16:47 | XMS_ITS | Encounter Summary ---
Author Organization [facility] Address [address] [place] [address]. 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 POTASSIUM S/P/B 3.2(L) 3.5 - 5.0 MMOL/L 09/25/2016 10:[address] [facility] CHLORIDE S/P/B 115(H) 98 - 107 MMOL/L 09/25/2016 10:[address] [facility] CO2 18.6(L) 22 - 29 MMOL/L 09/25/2016 10:[address] [facility] GLUCOSE 91 70 - 109 MG/DL 09/25/2016 10:[address] [facility] BUN 18 7 - 19 MG/DL 09/25/2016 10:[address] [facility] CREATININE S/P/B 2.39(H) 0.60 - 1.10 MG/DL 09/25/2016 10:[address] [facility] CALCIUM S/P/B 8.3(L) 8.4 - 10.2 MG/DL 09/25/2016 10:[address] [facility] EGFR NON-AFR. AMER. 23(L) >60 ML/MIN/1.7 3 M2 09/25/2016 10:[address] [facility] EGFR AFR. AMER. 28(L) >60 ML/MIN/1.7 3 M2 09/25/2016 10:[address] [facility] ANION GAP 9.4 MMOL/L 09/25/2016 10:[address] [facility] OSMOLALITY (CALC) 286 MOSM/KG 09/25/2016 10:[address] [facility] PLASMA SPECIMEN / Unknown 09/25/2016 11:02 AM CDT 09/25/2016 10:17 AM CDT us Generic Conversion Md [facility] Final R esult [facility] [address] [place] [address], [id number] documented in this encounter Visit Diagnoses Not on filedocumented in this encounter
--- OUTSIDE RECORDS SUMMARY | 2024-03-20 16:47 | XMS_ITS | Encounter Summary ---
Author Organization [facility] Address [address] [place] [address]. 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
--- OUTSIDE RECORDS SUMMARY | 2024-03-20 16:47 | XMS_ITS | Encounter Summary ---
Author Organization [facility] Address [address] [place] [address]. 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 Gender Identity Not on file Sexual Orientation [...] - 10.8 x10'3/uL 09/23/2016 4:45 AM CDT [facility] RBC 2.38(L) 4.10 - 5.40 x10'6/uL 09/23/2016 4:45 AM CDT [facility] HGB 8.1(L) 12.0 - 16.0 G/DL 09/23/2016 4:45 AM CDT [facility] HCT 22.7(L) 36.0 - 47.0 % 09/23/2016 4:45 AM CDT [facility] MCV 95.4 78.0 - 100.0 FL 09/23/2016 4:45 AM CDT [facility] MCH 34.0(H) 27.0 - 31.0 PG 09/23/2016 4:45 AM CDT [facility] MCHC 35.7 33.0 - 36.0 G/DL 09/23/2016 4:45 AM CDT [facility] RDW 12.6 11.5 - 14.5 % 09/23/2016 4:45 AM CDT [facility] PLT 30(L) 150 - 350 x10'3/uL 09/23/2016 5:08 AM CDT [facility] MPV 12.3(H) 7.4 - 10.4 FL 09/23/2016 5:08 AM CDT [facility] ABS. NEUTROPHILS TOTAL 1.23(L) 1.60 - 8.30 x10'3/uL 09/23/2016 5:12 AM CDT [facility] ABS. NEUTROPHILS CALCULATED 1.19(L) 1.60 - 7.30 x10'3/uL 09/23/2016 5:12 AM CDT [facility] BANDS 0.02 0.00 - 1.00 x10'3/uL 09/23/2016 5:12 AM CDT [facility] ABS. LYMPHOCYTES 0.75(L) 0.80 - 4.70 x10'3/uL 09/23/2016 5:12 AM CDT [facility] ABS. MONOCYTES 0.15 0.00 - 1.50 x10'3/uL 09/23/2016 5:12 AM CDT [facility] ABS. EOSINOPHILS 0.07 0.00 - 0.40 x10'3/uL 09/23/2016 5:12 AM CDT [facility] ABS. BASOPHILS 0.00 0.00 - 0.20 x10'3/uL 09/23/2016 5:12 AM CDT [facility] ABS. METAMYELOCYTES 0.02(H) 0.00 x10'3/uL 09/23/2016 5:12 AM CDT [facility] ABS. NUCLEATED RBC'S 0.02(H) 0.0 x10'3/uL 09/23/2016 5:12 AM CDT [facility] RBC MORPHOLOGY POIKILOCYTOSIS 2016 5:12 AM CDT [facility] Comment: SLIGHT OVALOCYTES PLT MORPH. LOW 09/23/2016 5:12 AM CDT [facility] PLASMA SPECIMEN / Unknown 09/23/2016 5:30 AM CDT 09/23/2016 4:31 AM CDT us Generic Conversion Md [facility] Final R esult [facility] [address] [place] [address], [id number] documented in this encounter Visit Diagnoses Not on filedocumented in this encounter
--- OUTSIDE RECORDS SUMMARY | 2024-03-20 16:47 | XMS_ITS | Encounter Summary ---
Author Organization [facility] Address [address] [place] [address]. 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 CHLORIDE S/P/B 117(H) 98 - 107 MMOL/L 09/24/2016 7:05 AM CDT [facility] CO2 20.0(L) 22 - 29 MMOL/L 09/24/2016 7:05 AM CDT [facility] GLUCOSE 97 70 - 109 MG/DL 09/24/2016 7:05 AM T [facility] BUN 25(H) 7 - 19 MG/DL 09/24/2016 7:05 AM T [facility] CREATININE S/P/B 2.61(H) 0.60 - 1.10 MG/DL 09/24/2016 7:05 AM T [facility] CALCIUM S/P/B 7.9(L) 8.4 - 10.2 MG/DL 09/24/2016 7:05 AM T [facility] EGFR NON-AFR. AMER. 21(L) >60 ML/MIN/1.7 3 M2 09/24/2016 7:05 AM T [facility] EGFR AFR. AMER. 26(L) >60 ML/MIN/1.7 3 M2 09/24/2016 7:05 AM T [facility] ANION GAP 4.0 MMOL/L 09/24/2016 7:05 AM T [facility] OSMOLALITY (CALC) 286 MOSM/KG 09/24/2016 7:05 AM T [facility] PLASMA SPECIMEN / Unknown 09/24/2016 7:30 AM CDT 09/24/2016 6:35 AM CDT us Generic Conversion Md [facility] Final R esult [facility] [address] [place] [address], [id number] documented in this encounter Visit Diagnoses Not on filedocumented in this encounter
--- OUTSIDE RECORDS SUMMARY | 2024-03-20 16:47 | XMS_ITS | Encounter Summary ---
Author Organization [facility] Address [address] [place] [address]. 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 [place], [place] ?? Department of Radiology ? MISHA JACKSON MD: KEYA GARCÍA MD, RES ?? Acct: [id number] ?? : 1980 Pt Type: ADM IN ?? Sex: F Ord Site: MAIN ? Study Date Accession # Procedure Code Procedure ?? 07/06/17 [id number] US Renal and Bladder Bi ? [...] Procedure Note Lazara Mendoza MD - 01/10/2018 [place], [place] Department of Radiology MISHA JACKSON Ordering MD: KEYA GARCÍA MD, RES Acct: [id number] : 1980 Pt Type: ADM IN Sex: [...] on filedocumented in this encounter Care Teams Acting Manager Relationship Specialty Start Date End Date Hermes Ramirez III, MD [address] [facility] [address] [place] [address] PCP - General FAMILY PRACTICE 06/20/17 documented as of this encounter
--- OUTSIDE RECORDS SUMMARY | 2024-03-20 16:47 | XMS_ITS | Encounter Summary ---
Author Organization [facility] Address [address] [place] [address]. 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 Gender Identity Not on file Sexual [...] - 10.8 x10'3/uL 09/22/2016 5:43 AM CDT [facility] RBC 2.52(L) 4.10 - 5.40 x10'6/uL 09/22/2016 5:43 AM CDT [facility] HGB 8.6(L) 12.0 - 16.0 G/DL 09/22/2016 5:43 AM CDT [facility] HCT 24.8(L) 36.0 - 47.0 % 09/22/2016 5:43 AM CDT [facility] MCV 98.4 78.0 - 100.0 FL 09/22/2016 5:43 AM CDT [facility] MCH 34.1(H) 27.0 - 31.0 PG 09/22/2016 5:43 AM CDT [facility] MCHC 34.7 33.0 - 36.0 G/DL 09/22/2016 5:43 AM CDT [facility] RDW 13.2 11.5 - 14.5 % 09/22/2016 5:43 AM CDT [facility] PLT 55(L) 150 - 350 x10'3/uL 09/22/2016 5:43 AM CDT [facility] MPV 11.8(H) 7.4 - 10.4 FL 09/22/2016 5:43 AM CDT [facility] ABS. NEUTROPHILS TOTAL 3.11 1.60 - 8.30 x10'3/uL 09/22/2016 5:43 AM CDT [facility] ABS. LYMPHOCYTES 0.78(L) 0.80 - 4.70 x10'3/uL 09/22/2016 5:43 AM CDT [facility] ABS. MONOCYTES 0.42 0.00 - 1.50 x10'3/uL 09/22/2016 5:43 AM CDT [facility] ABS. EOSINOPHILS 0.08 0.00 - 0.40 x10'3/uL 09/22/2016 5:43 AM CDT [facility] ABS. BASOPHILS 0.01 0.00 - 0.20 x10'3/uL 09/22/2016 5:43 AM CDT [facility] ABS. IMMATURE GRANULOCYTES 0.02 0.00 - 0.03 x10'3/uL 09/22/2016 5:43 AM CDT [facility] ABS. NUCLEATED RBC'S 0.00 0.0 x10'3/uL 09/22/2016 5:43 AM CDT [facility] PLASMA SPECIMEN / Unknown 09/22/2016 6:17 AM CDT 09/22/2016 5:18 AM CDT us Generic Conversion Md [facility] Final R esult Performing Organization Address City/State/[facility] Co de Phone Number [facility] [address] [place] [address], [id number] documented in this encounter Visit Diagnoses Not on filedocumented in this encounter
--- OUTSIDE RECORDS SUMMARY | 2024-03-20 16:47 | XMS_ITS | Encounter Summary ---
Author Organization [facility] Address [address] [place] [address]. 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 Gender Identity Not on file [...] - 10.8 x10'3/uL 09/25/2016 10:29 AM CDT [facility] RBC 2.68(L) 4.10 - 5.40 x10'6/uL 09/25/2016 10:29 AM CDT [facility] HGB 9.1(L) 12.0 - 16.0 G/DL 09/25/2016 10:29 AM CDT [facility] HCT 25.3(L) 36.0 - 47.0 % 09/25/2016 10:29 AM CDT [facility] MCV 94.4 78.0 - 100.0 FL 09/25/2016 10:29 AM CDT [facility] MCH 34.0(H) 27.0 - 31.0 PG 09/25/2016 10:29 AM CDT [facility] MCHC 36.0 33.0 - 36.0 G/DL 09/25/2016 10:29 AM CDT [facility] RDW 12.1 11.5 - 14.5 % 09/25/2016 10:29 AM CDT [facility] PLT 59(L) 150 - 350 x10'3/uL 09/25/2016 10:29 AM CDT [facility] MPV 11.5(H) 7.4 - 10.4 FL 09/25/2016 10:29 AM CDT [facility] ABS. NEUTROPHILS TOTAL 2.95 1.60 - 8.30 x10'3/uL 09/25/2016 12:17 PM CDT [facility] ABS. NEUTROPHILS CALCULATED 2.73 1.60 - 7.30 x10'3/uL 09/25/2016 12:17 PM CDT [facility] BANDS 0.18 0.00 - 1.00 x10'3/uL 09/25/2016 12:17 PM CDT [facility] ABS. LYMPHOCYTES 0.92 0.80 - 4.70 x10'3/uL 09/25/2016 12:17 PM CDT [facility] ABS. MONOCYTES 0.26 0.00 - 1.50 x10'3/uL 09/25/2016 12:17 PM CDT [facility] ABS. EOSINOPHILS 0.26 0.00 - 0.40 x10'3/uL 09/25/2016 12:17 PM CDT [facility] ABS. BASOPHILS 0.00 0.00 - 0.20 x10'3/uL 09/25/2016 12:17 PM CDT [facility] ABS. MYELOCYTES 0.04(H) 0.00 x10'3/uL 09/25/2016 12:17 PM CDT [facility] ABS. NUCLEATED RBC'S 0.00 0.0 x10'3/uL 09/25/2016 12:17 PM CDT [facility] RBC MORPHOLOGY POIKILOCYTOSIS 2016 12:17 PM CDT [facility] Comment: SLIGHT OVALOCYTES PLT MORPH. LOW 09/25/2016 12:17 PM CDT [facility] PLASMA SPECIMEN / Unknown 09/25/2016 11:01 AM CDT 09/25/2016 10:17 AM CDT us Generic Conversion Md [facility] Final R esult [facility] [address] [place] [address], [place] [phone] [id number] documented in this encounter Visit Diagnoses Not on filedocumented in this encounter
--- OUTSIDE RECORDS SUMMARY | 2024-03-20 16:47 | XMS_ITS | Encounter Summary ---
Author Organization [facility] Address [address] [place] [address]. 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 CHLORIDE S/P/B 116(H) 98 - 107 MMOL/L 09/25/2016 6:31 AM CDT [facility] CO2 17.9(L) 22 - 29 MMOL/L 09/25/2016 6:31 AM CDT [facility] GLUCOSE 88 70 - 109 MG/DL 09/25/2016 6:31 AM CDT [facility] BUN 18 7 - 19 MG/DL 09/25/2016 6:31 AM CDT [facility] CREATININE S/P/B 2.32(H) 0.60 - 1.10 MG/DL 09/25/2016 6:31 AM CDT [facility] CALCIUM S/P/B 8.0(L) 8.4 - 10.2 MG/DL 09/25/2016 6:31 AM CDT [facility] EGFR NON-AFR. AMER. 24(L) >60 ML/MIN/1.7 3 M2 09/25/2016 6:31 AM T [facility] EGFR AFR. AMER. 29(L) >60 ML/MIN/1.7 3 M2 09/25/2016 6:31 AM CDT [facility] ANION GAP 8.1 MMOL/L 09/25/2016 6:31 AM T [facility] OSMOLALITY (CALC) 284 MOSM/KG 09/25/2016 6:31 AM T [facility] PLASMA SPECIMEN / Unknown 09/25/2016 6:50 AM CDT 09/25/2016 6:00 AM CDT us Generic Conversion Md [facility] Final R esult [facility] [address] [place] [address], [id number] documented in this encounter Visit Diagnoses Not on filedocumented in this encounter
--- OUTSIDE RECORDS SUMMARY | 2024-03-20 16:48 | XMS_ITS | Encounter Summary ---
Author Organization [facility] Address [address] [place] [address]. 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
--- OUTSIDE RECORDS SUMMARY | 2024-03-20 16:48 | XMS_ITS | Encounter Summary ---
Author Organization [facility] Address [address] [place] [address]. 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 Gender Identity Not on file Sexual [...] - 147 MMOL/L 09/21/2016 3:46 AM CDT [facility] POTASSIUM S/P/B 5.8(H) 3.5 - 5.0 MMOL/L 09/21/2016 3:46 AM CDT [facility] CHLORIDE S/P/B 117(H) 98 - 107 MMOL/L 09/21/2016 3:46 AM CDT [facility] CO2 15.8(L) 22 - 29 MMOL/L 09/21/2016 3:46 AM [facility] GLUCOSE 68(L) 70 - 109 MG/DL 09/21/2016 3:46 AM [facility] BUN 34(H) 7 - 19 MG/DL 09/21/2016 3:46 AM [facility] CREATININE S/P/B 2.66(H) 0.60 - 1.10 MG/DL 09/21/2016 3:46 AM [facility] CALCIUM S/P/B 8.0(L) 8.4 - 10.2 MG/DL 09/21/2016 3:46 AM [facility] BILIRUBIN TOTAL S/P/B 0.7 0.2 - 1.2 MG/DL 09/21/2016 3:46 AM [facility] ALKALINE PHOSPHATASE S/P/B 269(H) 37 - 98 U/L 09/21/2016 3:46 AM [facility] AST 25 5 - 35 U/L 09/21/2016 3:46 AM [facility] ALT 19 0 - 55 U/L 09/21/2016 3:46 AM [facility] TOTAL PROTEIN S/P/B 5.3(L) 6.0 - 8.3 G/DL 09/21/2016 3:46 AM [facility] ALBUMIN S/P/B 3.0(L) 3.4 - 4.9 G/DL 09/21/2016 3:46 AM [facility] ANION GAP 5.2 MMOL/L 09/21/2016 3:46 AM [facility] OSMOLALITY (CALC) 282 MOSM/KG 09/21/2016 3:46 AM [facility] EGFR NON-AFR. AMER. 21(L) >60 ML/MIN/1.7 3 M2 09/21/2016 3:46 AM [facility] EGFR AFR. AMER. 25(L) >60 ML/MIN/1.7 3 M2 09/21/2016 3:46 AM CDT [facility] PLASMA SPECIMEN / Unknown 09/21/2016 3:58 AM CDT 09/21/2016 3:09 AM CDT us Generic Conversion Md [facility] Final R esult [facility] [address] [place] [address], [place] [phone] [id number] documented in this encounter Visit Diagnoses Not on filedocumented in this encounter
--- OUTSIDE RECORDS SUMMARY | 2024-03-20 16:48 | XMS_ITS | Encounter Summary ---
Author Organization [facility] Address [address] [place] [address]. 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 Gender Identity Not on file Sexual Orientation Not on file documented as of this encounter Plan of Treatment Not on file documented as of this encounter Procedures Procedure Name Priority Date/Time Associated Diagnosis Comments CULTURE, BACTERIA, BLOOD NOW 09/20/2016 6:38 PM CDT documented in this encounter Results * CULTURE, BACTERIA, BLOOD (09/20/2016 6:38 PM CDT) SPEC DESCRIPTION BLOOD 09/20/2016 5:01 PM CDT [facility] SPECIAL REQUESTS NO SPECIAL REQUEST 09/20/2016 5:01 PM CDT [facility] CULTURE RESULT NO GROWTH 5 DAYS 09/25/2016 10:47 PM CDT [facility] BLOOD SPECIMEN OBTAINED FOR BLOOD CULTURE / Unknown 09/20/2016 6:38 PM CDT 09/20/2016 5:39 PM CDT Comment:BLOOD-AEROBIC BOTTLE ONLY us Generic Conversion Md [facility] MICRO[facility] - GENERAL ORDERABLES Final Result Performing Organization Address City/State/[facility] Co de Phone Number [facility] [address] [place] [address], [place] [phone] [id number] documented in this encounter Visit Diagnoses Not on filedocumented in this encounter
--- OUTSIDE RECORDS SUMMARY | 2024-03-20 16:48 | XMS_ITS | Encounter Summary ---
Author Organization [facility] Address [address] [place] [address]. 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
--- OUTSIDE RECORDS SUMMARY | 2024-03-20 16:48 | XMS_ITS | Encounter Summary ---
Author Organization [facility] Address [address] [place] [address]. 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 Optimal blood drug levels are influenced by type of transplant, patient response, time post- transplant, co-administration of other drugs, and drug formulation. The following trough range is a suggested guideline: ? 5.0-20.0 mcg/L Test Performed by [facility], [address] [place] [address] Héctor Avalos M.D., Ph.D., Director of Laboratories , [place] [id number] WHOLE BLOOD SPECIMEN / Unknown 09/21/2016 12:41 PM CDT 09/21/2016 11:42 AM CDT us Generic Conversion Md [facility] Final R esult [facility] [address] [place] [address], [id number] documented in this encounter Visit Diagnoses Not on filedocumented in this encounter
--- OUTSIDE RECORDS SUMMARY | 2024-03-20 16:48 | XMS_ITS | Encounter Summary ---
Author Organization [facility] Address [address] [place] [address]. [place] [address] [place] [address] Care Team Providers Care Forest Pathologist Name Role Phone Unavailable Primary Care Provider Unavailabl e Encounter Details Date Type Department Care Team (Late st Contact Info) Description 09/20/2016 Orders Only [place] [address] , Generic Conversion, Social History Tobacco Use Types Packs/Day Years Used Date Smoking Tobacco: Never Assessed Comments Unknown Sex and Gender Information Value Date Recorded Sex Assigned at Not on file Legal Sex Female 9:15 PM [place] ATTORNEY Gender Identity Not on file Sexual Orientation [...] - 10.8 x10'3/uL 09/20/2016 1:[address] [facility] RBC 2.72(L) 4.10 - 5.40 x10'6/uL 09/20/2016 1:[address] [facility] HGB 9.4(L) 12.0 - 16.0 G/DL 09/20/2016 1:[address] [facility] HCT 26.3(L) 36.0 - 47.0 % 09/20/2016 1:[address] [facility] MCV 96.7 78.0 - 100.0 FL 09/20/2016 1:[address] [facility] MCH 34.6(H) 27.0 - 31.0 PG 09/20/2016 1:[address] [facility] MCHC 35.7 33.0 - 36.0 G/DL 09/20/2016 1:[address] [facility] RDW 12.6 11.5 - 14.5 % 09/20/2016 1:[address] [facility] PLT 57(L) 150 - 350 x10'3/uL 09/20/2016 1:[address] [facility] MPV 12.1(H) 7.4 - 10.4 FL 09/20/2016 1:[address] [facility] ABS. NEUTROPHILS TOTAL 2.41 1.60 - 8.30 x10'3/uL 09/20/2016 1:[address] [facility] ABS. LYMPHOCYTES 0.90 0.80 - 4.70 x10'3/uL 09/20/2016 1:[address] [facility] ABS. MONOCYTES 0.36 0.00 - 1.50 x10'3/uL 09/20/2016 1:[address] [facility] ABS. EOSINOPHILS 0.34 0.00 - 0.40 x10'3/uL 09/20/2016 1:[address] [facility] ABS. BASOPHILS 0.00 0.00 - 0.20 x10'3/uL 09/20/2016 1:[address] [facility] ABS. IMMATURE GRANULOCYTES 0.00 0.00 - 0.03 x10'3/uL 09/20/2016 1:[address] [facility] ABS. NUCLEATED RBC'S 0.00 0.0 x10'3/uL 09/20/2016 1:[address] [facility] PLASMA SPECIMEN / Unknown 09/20/2016 2:44 PM CDT 09/20/2016 1:45 PM CDT us Generic Conversion Md [facility] Final R esult [facility] [address] [place] [address], [id number] documented in this encounter Visit Diagnoses Not on filedocumented in this encounter
--- OUTSIDE RECORDS SUMMARY | 2024-03-20 16:48 | XMS_ITS | Encounter Summary ---
Author Organization [facility] Address [address] [place] [address]. 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
--- OUTSIDE RECORDS SUMMARY | 2024-03-20 16:48 | XMS_ITS | Encounter Summary ---
Author Organization [facility] Address [address] [place] [address]. 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 SERUM OR PLASMA SPECIMEN / Unknown 09/21/2016 12:41 PM CDT 09/21/2016 11:42 AM CDT us Generic Conversion Md [facility] Final R esult [facility] [address] [place], [place] [address] [phone] [id number] documented in this encounter Visit Diagnoses Not on filedocumented in this encounter
--- OUTSIDE RECORDS SUMMARY | 2024-03-20 16:48 | XMS_ITS | Encounter Summary ---
Author Organization [facility] Address [address] [place] [address]. 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 CHLORIDE S/P/B 115(H) 98 - 107 MMOL/L 09/21/2016 12:37 PM CDT [facility] CO2 12.0(L) 22 - 29 MMOL/L 09/21/2016 12:37 PM CDT [facility] GLUCOSE 99 70 - 109 MG/DL 09/21/2016 12:37 PM CDT [facility] BUN 39(H) 7 - 19 MG/DL 09/21/2016 12:37 PM CDT [facility] CREATININE S/P/B 2.92(H) 0.60 - 1.10 MG/DL 09/21/2016 12:37 PM CDT [facility] CALCIUM S/P/B 8.1(L) 8.4 - 10.2 MG/DL 09/21/2016 12:37 PM CDT [facility] EGFR NON-AFR. AMER. 19(L) >60 ML/MIN/1.7 3 M2 09/21/2016 12:37 PM CDT [facility] EGFR AFR. AMER. 22(L) >60 ML/MIN/1.7 3 M2 09/21/2016 12:37 PM CDT [facility] ANION GAP 11.0 MMOL/L 09/21/2016 12:37 PM CDT [facility] OSMOLALITY (CALC) 285 MOSM/KG 09/21/2016 12:37 PM CDT [facility] PLASMA SPECIMEN / Unknown 09/21/2016 12:41 PM CDT 09/21/2016 12:18 PM CDT us Generic Conversion Md [facility] Final R esult [facility] [address] [place] [address], [phone] documented in this encounter Visit Diagnoses Not on filedocumented in this encounter
--- OUTSIDE RECORDS SUMMARY | 2024-03-20 16:48 | XMS_ITS | Encounter Summary ---
Author Organization [facility] Address [address] [place] [address]. 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 [facility] ? [address], [place] ??[address] ? Test Date: ?2016-09-21 Pat Name: ? MISHA JACKSON ?Department: ?? 1 ? Room: ? 0610A Gender: ? F ?Element Winding Machine Tender: ?? sg : ?1980 ? Requested By: RIVERA CHLOE Order Number: [id number] ? Reading MD: ?? Mayra Woodsonlamothu ? Measurements Intervals ?[place] ? Rate: ? 104 ?P: ?86 NH: ? 212 ?QRS: ?20 QRSD: ? 81 ? T: ?46 QT: ? 382 ? QTc: ?503 ? 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 LOW QRS VOLTAGE IN EXTREMITY LEADS ANTEROSEPTAL MYOCARDIAL INFARCTION, OF INDETERMINATE AGE Procedure Note , Lazara Conversion, - 11/12/2018 [facility] [address] [place] [address] Test Date: 2016-09-21 Pat Name: IMSHA JACKSON Department: 1 Room: [facility] Gender: F Element Winding Machine Tender: : 1980 Requested By: MIGUEL CORONA Order Number: [id number] Reading MD: Lois Measurements Intervals [place] Rate: 104 P: 86 NH: 212 QRS: 20 QRSD: 81 T: 46 QT: 382 QTc: 503 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 LOW QRS VOLTAGE IN EXTREMITY LEADS ANTEROSEPTAL MYOCARDIAL INFARCTION, OF INDETERMINATE AGE us Generic Conversion Md [facility] ECG ORDERABLES Final R esult [facility] * PRV ONLY-RESTING TWELVE LEAD EKG (09/21/2016 9:31 AM CDT) 09/21/2016 9:31 AM CDT 09/21/2016 9:31 AM CDT Narrative [facility] CONVERSION - 09/21/2016 1:18 PM CDT [facility] ? [address], [place] ??[address] ? Test Date: ?2016-09-21 Pat Name: ? MISHA JACKSON ?Department: ?? 1 ? Room: ? 0610A Gender: ? Female ? Element Winding Machine Tender: ?? sg : ?1980 ? Requested By: MIGUEL GREGORIOF Order Number: [id number] ? Reading MD: ?? Mayra Alyu ? Measurements Intervals ?[place] ? Rate: ? 104 ?P: ?86 NH: ? 212 ?QRS: ?20 QRSD: ? 81 ? T: ?46 QT: ? 382 ? QTc: ?503 ? 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 LOW QRS VOLTAGE IN EXTREMITY LEADS ANTEROSEPTAL MYOCARDIAL INFARCTION, OF INDETERMINATE AGE Procedure Note , Generic Conversion, - 01/10/2018 [facility] [address] [place] [address] Test Date: 2016-09-21 Pat Name: MISHA JACKSON Department: 1 Room: [facility] Gender: Female Element Winding Machine Tender: allan : 1980 Requested By: MIGUEL CORONA Order Number: [id number] Reading MD: Lois Measurements Intervals [place] Rate: 104 P: 86 NH: 212 QRS: 20 QRSD: 81 T: 46 QT: 382 QTc: 503 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
--- OUTSIDE RECORDS SUMMARY | 2024-03-20 16:48 | XMS_ITS | Encounter Summary ---
Author Organization [facility] Address [address] [place] [address]. 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 Date/Time Dictated: 09/20/2016 00:00 a.m. Transcribed Date/Time: 09/21/2016 14:16 p.m. Surgery Date: cc: Lucero Green M.D. Chart Document Admission Diagnosis Pancreatitis and abdominal pain. Primary Care Physician Dr. Hermes Ramirez. 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 Presented to [facility] with complaints of abdominal pain. [...] transplant and gastroesophageal reflux disease presents to [facility] with complaint of abdominal pain [...] liver transplantation. The patient follows up in [place]. 6. Anemia and thrombocytopenia. Unclear etiology. Continue to monitor CBC. 7. Deep vein thrombosis prophylaxis with PAS boots and ambulation. Code Status Full code. Electronically Signed By: Jason Harper M.D. 09/22/2016 11:40 A Jason Harper M.D. documented in this encounter Plan of Treatment Not on file documented as of this encounter Visit Diagnoses Not on filedocumented in this encounter Care Teams Senior Painter Relationship Specialty Start Date End Date Hermes Ramirez III, MD [address] [address] PCP - General FAMILY PRACTICE 06/20/17 documented as of this encounter
--- OUTSIDE RECORDS SUMMARY | 2024-03-20 16:48 | XMS_ITS | Encounter Summary ---
Author Organization [facility] Address [address] [place] [address]. 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 Gender Identity Not on file Sexual Orientation Not on file documented as of this encounter Plan of Treatment Not on file documented as of this encounter Procedures Procedure Name Priority Date/Time Associated Diagnosis Comments CULTURE, BACTERIA, BLOOD NOW 09/20/2016 6:19 PM CDT documented in this encounter Results * CULTURE, BACTERIA, BLOOD (09/20/2016 6:19 PM CDT) SPEC DESCRIPTION BLOOD 09/20/2016 5:01 PM CDT [facility] SPECIAL REQUESTS NO SPECIAL REQUEST 09/20/2016 5:01 PM CDT [facility] CULTURE RESULT NO GROWTH 5 DAYS 09/25/2016 10:47 PM CDT [facility] BLOOD SPECIMEN OBTAINED FOR BLOOD CULTURE / Unknown 09/20/2016 6:19 PM CDT 09/20/2016 5:26 PM CDT us Generic Conversion Md [facility] MICROBIOLOGY - GENERAL ORDERABLES Final Result [facility] [address] [place] [address], [place] [phone] documented in this encounter Visit Diagnoses Not on filedocumented in this encounter
--- OUTSIDE RECORDS SUMMARY | 2024-03-20 16:48 | XMS_ITS | Encounter Summary ---
Author Organization [facility] Address [address] [place] [address]. 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 [place], [place] ?? Department of Radiology ? MISHA JACKSON Ordering MD: AMADO VUONG MD, RES ?? Acct: [id number] ?? : 1980 Pt Type: ADM IN ?? Sex: F Ord Site: MAIN ? Study Date Accession # Procedure Code Procedure ?? 09/20/16 7230-0000 PLVTRNSVG+ US Pelvis Non OB w Transvag+ [...] Procedure Note , Generic Conversion, - 01/11/2018 [place], [place] Department of Radiology MISHA JACKSON Ordering MD: AMADO VUONG MD, RES Acct: [id number] : 1980 Pt Type: ADM IN Sex: F Ord Site: MAIN Study Date Accession # Procedure Code Procedure 09/20/16 [id number] PLVTRNSVG+ US Pelvis Non OB w Transvag+ [...] on filedocumented in this encounter Care Teams Grinder Brake Lining Relationship Specialty Start Date End Date Hermes Ramirez III, MD [address] [facility] [address] [place] [address] PCP - General FAMILY PRACTICE 06/20/17 documented as of this encounter
--- OUTSIDE RECORDS SUMMARY | 2024-03-20 16:48 | XMS_ITS | Encounter Summary ---
Author Organization [facility] Address [address] [place] [address]. [place] [address] [place] [address] Care Team Providers Care Marriage Counselor Name Role Phone Ashley ZUNIGA MD, Hermes Primary Care Provid er Encounter Details Date Type Department Care Team (Latest Contact Info) Description 09/21/2016 Abstract [facility] Victor Manuel Albright MD 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 Department of Laboratory Medicine [address] [place] [address] , extension [phone] Facsimile: ?? Surgical Pathology Report Patient Name: MISHA JACKSON MR#: [id number] Specimen #[id number] Source: Antrum, biopsy Clinical History: Not provided. [...] M.D., Ph.D. Signed Out: 09/23/2016 [facility] CONVERSION 09/21/2016 09/21/2016 Narrative [facility] EP[facility] CONVERSION - 09/21/2016 1:31 PM CDT Result Communication: No patient communication needed at this time Victor Manuel Albright MD PATHOLOGY/CYTOLOGY ORDERABLE S Final Result [facility] CON[facility] documented in this encounter Visit Diagnoses Not on filedocumented in this encounter Care Teams Marriage Counselor Relationship Specialty Start Date End Date Hermes Ramirez III, MD [address] [address] PCP - General FAMILY PRACTICE 06/20/17 documented as of this encounter
--- OUTSIDE RECORDS SUMMARY | 2024-03-20 16:48 | XMS_ITS | Encounter Summary ---
Author Organization [facility] Address [address] [place] [address]. 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 Gender Identity Not on file Sexual Orientation [...] - 147 MMOL/L 09/22/2016 5:47 AM CDT [facility] POTASSIUM S/P/B 4.5 3.5 - 5.0 MMOL/L 09/22/2016 5:47 AM CDT [facility] CHLORIDE S/P/B 112(H) 98 - 107 MMOL/L 09/22/2016 5:47 AM CDT [facility] CO2 17.6(L) 22 - 29 MMOL/L 09/22/2016 5:47 AM CDT [facility] GLUCOSE 146(H) 70 - 109 MG/DL 09/22/2016 5:47 AM CDT [facility] BUN 43(H) 7 - 19 MG/DL 09/22/2016 5:47 AM CDT [facility] CREATININE S/P/B 3.88(H) 0.60 - 1.10 MG/DL 09/22/2016 5:47 AM CDT [facility] CALCIUM S/P/B 8.0(L) 8.4 - 10.2 MG/DL 09/22/2016 5:47 AM CDT [facility] EGFR NON-AFR. AMER. 13(L) >60 ML/MIN/1.7 3 M2 09/22/2016 5:47 AM CDT [facility] EGFR AFR. AMER. 16(L) >60 ML/MIN/1.7 3 M2 09/22/2016 5:47 AM CDT [facility] ANION GAP 7.4 MMOL/L 09/22/2016 5:47 AM T [facility] OSMOLALITY (CALC) 287 MOSM/KG 09/22/2016 5:47 AM T [facility] PLASMA SPECIMEN / Unknown 09/22/2016 6:17 AM CDT 09/22/2016 5:18 AM CDT us Generic Conversion Md [facility] Final R esult [facility] [address] [place] [address], [id number] documented in this encounter Visit Diagnoses Not on filedocumented in this encounter
--- OUTSIDE RECORDS SUMMARY | 2024-03-20 16:48 | XMS_ITS | Encounter Summary ---
Author Organization [facility] Address [address] [place] [address]. 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
--- OUTSIDE RECORDS SUMMARY | 2024-03-20 16:48 | XMS_ITS | Encounter Summary ---
Author Organization [facility] Address [address] [place] [address]. 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 CHLORIDE S/P/B 113(H) 98 - 107 MMOL/L 09/20/2016 2:08 PM CDT [facility] CO2 19.5(L) 22 - 29 MMOL/L 09/20/2016 2:08 PM T [facility] GLUCOSE 83 70 - 109 MG/DL 09/20/2016 2:08 PM [facility] BUN 35(H) 7 - 19 MG/DL 09/20/2016 2:08 PM T [facility] CREATININE S/P/B 2.75(H) 0.60 - 1.10 MG/DL 09/20/2016 2:08 PM T [facility] CALCIUM S/P/B 7.9(L) 8.4 - 10.2 MG/DL 09/20/2016 2:08 PM T [facility] BILIRUBIN TOTAL S/P/B 0.5 0.2 - 1.2 MG/DL 09/20/2016 2:08 PM T [facility] ALKALINE PHOSPHATASE S/P/B 266(H) 37 - 98 U/L 09/20/2016 2:08 PM T [facility] AST 27 5 - 35 U/L 09/20/2016 2:08 PM T [facility] ALT 20 0 - 55 U/L 09/20/2016 2:08 PM [facility] TOTAL PROTEIN S/P/B 5.4(L) 6.0 - 8.3 G/DL 09/20/2016 2:08 PM [facility] ALBUMIN S/P/B 3.0(L) 3.4 - 4.9 G/DL 09/20/2016 2:08 PM T [facility] ANION GAP 5.5 MMOL/L 09/20/2016 2:08 PM [facility] OSMOLALITY (CALC) 283 MOSM/KG 09/20/2016 2:08 PM [facility] EGFR NON-AFR. AMER. 20(L) >60 ML/MIN/1.7 3 M2 09/20/2016 2:08 PM T [facility] EGFR AFR. AMER. 24(L) >60 ML/MIN/1.7 3 M2 09/20/2016 2:08 PM CDT [facility] PLASMA SPECIMEN / Unknown 09/20/2016 2:44 PM CDT 09/20/2016 1:45 PM CDT us Generic Conversion Md [facility] Final R esult [facility] [address] [place] [address], [phone] documented in this encounter Visit Diagnoses Not on filedocumented in this encounter
--- OUTSIDE RECORDS SUMMARY | 2024-03-20 16:48 | XMS_ITS | Encounter Summary ---
Author Organization [facility] Address [address] [place] [address]. [place] [address] [place] [address] Care Team Providers Care Duralumin Metalworker Name Role Phone Unavailable Primary Care Provider Unavailabl e Encounter Details Date Type Department Care Team (Late st Contact Info) Description 09/21/2016 Orders Only [place] [address] , Generic Conversion, Social History Tobacco Use Types Packs/Day Years Used Date Smoking Tobacco: Never Assessed Comments Unknown Sex and Gender Information Value Date Recorded Sex Assigned at Not on file Legal Sex Female 9:15 PM ADULT PROTECTIVE CASEWORKER Gender Identity Not on file Sexual Orientation Not on file documented as of this encounter Plan of Treatment Not on file documented as of this encounter Procedures Procedure Name Priority Date/Time Associated Diagnosis Comments URINALYSIS Nurse Collected Priority 09/21/2016 10:30 AM CDT documented in this encounter Results * (ABNORMAL) URINALYSIS (09/21/2016 10:30 AM CDT) COLOR (U) YELLOW 09/21/2016 9:45 PM CDT [facility] TRANSPARENCY HAZY 09/21/2016 9:45 PM CDT [facility] SPECIFIC GRAVITY (U) 1.015 1.002 - 1.035 09/21/2016 9:45 PM CDT [facility] U PH 5.0 5 - 8 09/21/2016 9:45 PM CDT [facility] PROTEIN (U) 30(A) NEGATIVE 09/21/2016 9:45 PM CDT [facility] URINE GLUCOSE NEGATIVE NEGATIVE MG/DL 09/21/2016 9:45 PM CDT [facility] KETONES MG/DL (U) NEGATIVE NEGATIVE 09/21/2016 9:45 PM CDT [facility] BILIRUBIN (U) NEGATIVE NEGATIVE 09/21/2016 9:45 PM CDT [facility] BLOOD (U) NEGATIVE NEGATIVE 09/21/2016 9:45 PM CDT [facility] NITRITES NEGATIVE NEGATIVE 09/21/2016 9:45 PM CDT [facility] UROBILINOGEN NORMAL 0 - 1 EU/DL 09/21/2016 9:45 PM CDT [facility] LEUKOCYTES (U) NEGATIVE NEGATIVE 09/21/2016 9:45 PM CDT [facility] RBC/HPF <1 /HPF 09/21/2016 9:45 PM CDT [facility] WBC/HPF <1 /HPF 09/21/2016 9:45 PM CDT [facility] BACTERIA (U) PRESENT /HPF 09/21/2016 9:45 PM CDT [facility] SQUAMOUS EPITHELIALS 6 09/21/2016 9:45 PM CDT [facility] HYALINE CASTS 9 09/21/2016 9:45 PM CDT [facility] URINE SPECIMEN / Unknown 09/21/2016 10:30 AM CDT 09/21/2016 9:37 PM CDT us Generic Conversion Md MENDOZA URINE ORDERABLES Final Result [facility] [address] [place] [address], [phone] documented in this encounter Visit Diagnoses Not on filedocumented in this encounter
--- OUTSIDE RECORDS SUMMARY | 2024-03-20 16:48 | XMS_ITS | Encounter Summary ---
Author Organization [facility] Address [address] [place] [address]. [place] [address] [place] [address] Care Team Providers Care Bartacker Name Role Phone Unavailable Primary Care Provider Unavailabl e Encounter Details Date Type Department Care Team (Late st Contact Info) Description 09/21/2016 Orders [place] [address] , Generic Conversion, Social History Tobacco Use Types Packs/Day Years Used Date Smoking Tobacco: Never Assessed Comments Unknown Sex and Gender Information Value Date Recorded Sex Assigned at Not on file Legal Sex Female 9:15 PM RADIATOR SPECIALIST Gender Identity Not on file Sexual [...] - 10.8 x10'3/uL 09/21/2016 3:26 AM CDT [facility] RBC 2.74(L) 4.10 - 5.40 x10'6/uL 09/21/2016 3:26 AM CDT [facility] HGB 9.3(L) 12.0 - 16.0 G/DL 09/21/2016 3:26 AM CDT [facility] HCT 26.8(L) 36.0 - 47.0 % 09/21/2016 3:26 AM CDT [facility] MCV 97.8 78.0 - 100.0 FL 09/21/2016 3:26 AM CDT [facility] MCH 33.9(H) 27.0 - 31.0 PG 09/21/2016 3:26 AM CDT [facility] MCHC 34.7 33.0 - 36.0 G/DL 09/21/2016 3:26 AM CDT [facility] RDW 12.6 11.5 - 14.5 % 09/21/2016 3:26 AM CDT [facility] PLT 56(L) 150 - 350 x10'3/uL 09/21/2016 3:26 AM T [facility] MPV 12.1(H) 7.4 - 10.4 FL 09/21/2016 3:26 AM T [facility] ABS. NEUTROPHILS TOTAL 3.83 1.60 - 8.30 x10'3/uL 09/21/2016 3:26 AM CDT [facility] ABS. LYMPHOCYTES 0.49(L) 0.80 - 4.70 x10'3/uL 09/21/2016 3:26 AM CDT [facility] ABS. MONOCYTES 0.31 0.00 - 1.50 x10'3/uL 09/21/2016 3:26 AM CDT [facility] ABS. EOSINOPHILS 0.07 0.00 - 0.40 x10'3/uL 09/21/2016 3:26 AM CDT [facility] ABS. BASOPHILS 0.00 0.00 - 0.20 x10'3/uL 09/21/2016 3:26 AM CDT [facility] ABS. IMMATURE GRANULOCYTES 0.01 0.00 - 0.03 x10'3/uL 09/21/2016 3:26 AM CDT [facility] ABS. NUCLEATED RBC'S 0.00 0.0 x10'3/uL 09/21/2016 3:26 AM CDT [facility] PLASMA SPECIMEN / Unknown 09/21/2016 3:58 AM CDT 09/21/2016 3:09 AM CDT us Generic Conversion Md [facility] Final R esult Performing Organization Address City/State/[facility] Co de Phone Number [facility] [address] [place] [address], [id number] documented in this encounter Visit Diagnoses Not on filedocumented in this encounter
--- OUTSIDE RECORDS SUMMARY | 2024-03-20 16:48 | XMS_ITS | Encounter Summary ---
Author Organization [facility] Address [address] [place] [address]. [place] [address] [place] [address] Care Team Providers Care Rotary Cutter Operator Name Role Phone Unavailable Primary Care Provider Unavailabl e Encounter Details Date Type Department Care Team (Late st Contact Info) Description 09/20/2016 Orders [place] [address] , Generic Conversion, Social History Tobacco Use Types Packs/Day Years Used Date Smoking Tobacco: Never Assessed Comments Unknown Sex and Gender Information Value Date Recorded Sex Assigned at Not on file Legal Sex Female 9:15 PM STUDENT DRIVING INSTRUCTOR Gender Identity Not on file Sexual Orientation Not on file documented as of this encounter Plan of Treatment Not on file documented as of this encounter Procedures Procedure Name Priority Date/Time Associated Diagnosis Comments LIPASE STAT 09/20/2016 2:44 PM CDT documented in this encounter Results * (ABNORMAL) LIPASE (09/20/2016 2:44 PM CDT) LIPASE 430(H) 8 - 78 UNITS/L 09/20/2016 2:08 PM CDT [facility] SERUM OR PLASMA SPECIMEN / Unknown 09/20/2016 2:44 PM CDT 09/20/2016 1:45 PM CDT us Generic Conversion Md [facility] Final R esult [facility] [address] [place] [address], [place] [phone] [id number] documented in this encounter Visit Diagnoses Not on filedocumented in this encounter
--- OUTSIDE RECORDS SUMMARY | 2024-03-20 16:48 | XMS_ITS | Encounter Summary ---
Author Organization [facility] Address [address] [place] [address]. [place] [address] [place] [address] Care Team Providers Care Platform Supervisor Name Role Phone Unavailable Primary Care Provider Unavailabl e Encounter Details Date Type Department Care Team (Late st Contact Info) Description 09/20/2016 Orders [place] [address] , Generic Conversion, Social History Tobacco Use Types Packs/Day Years Used Date Smoking Tobacco: Never Assessed Comments Unknown Sex and Gender Information Value Date Recorded Sex Assigned at Not on file Legal Sex Female 9:15 PM CLIENT RETENTION SPECIALIST Gender Identity Not on file Sexual [...] - 125 UNITS/L 09/20/2016 4:42 PM CDT [facility] SERUM OR PLASMA SPECIMEN / Unknown 09/20/2016 2:44 PM CDT 09/20/2016 4:22 PM CDT us Generic Conversion [facility] Final R esult [facility] [address] [place] [address], [id number] documented in this encounter Visit Diagnoses Not on filedocumented in this encounter
--- OUTSIDE RECORDS SUMMARY | 2024-03-20 16:48 | XMS_ITS | Encounter Summary ---
Author Organization [facility] Address [address] [place] [address]. [place] [address] [place] [address] Care Team Providers Care Assistant Men'S Soccer Coach Name Role Phone Unavailable Primary Care Provider Unavailabl e Encounter Details Date Type Department Care Team (Late st Contact Info) Description 09/21/2016 Orders Only [place] [address] , Generic Conversion, Social History Tobacco Use Types Packs/Day Years Used Date Smoking Tobacco: Never Assessed Comments Unknown Sex and Gender Information Value Date Recorded Sex Assigned at Not on file Legal Sex Female 9:15 PM DATABASE ADMINISTRATION MANAGER Gender Identity Not on file Sexual Orientation Not on file documented as of this encounter Plan of Treatment Not on file documented as of this encounter Procedures Procedure Name Priority Date/Time Associated Diagnosis Comments MAGNESIUM TIMED 09/21/2016 3:58 AM CDT documented in this encounter Results * MAGNESIUM (09/21/2016 3:58 AM CDT) MAGNESIUM 2.1 1.6 - 2.6 MG/DL 09/21/2016 3:46 AM CDT [facility] SERUM OR PLASMA SPECIMEN / Unknown 09/21/2016 3:58 AM CDT 09/21/2016 3:09 AM CDT us Generic Conversion [facility] Final R esult [facility] [address] [place] [address], [id number] documented in this encounter Visit Diagnoses Not on filedocumented in this encounter
--- OUTSIDE RECORDS SUMMARY | 2024-03-20 16:48 | XMS_ITS | Encounter Summary ---
Author Organization [facility] Address [address] [place] [address]. [place] [address] [place] [address] Care Team Providers Care Parts Product Analyst Name Role Phone Unavailable Primary Care Provider Unavailabl e Encounter Details Date Type Department Care Team (Late st Contact Info) Description 09/21/2016 Orders [place] [address] , Generic Conversion, Social History Tobacco Use Types Packs/Day Years Used Date Smoking Tobacco: Never Assessed Comments Unknown Sex and Gender Information Value Date Recorded Sex Assigned at Not on file Legal Sex Female 9:15 PM RECOVERY OPERATOR Gender Identity Not on file Sexual [...] - 5.0 MMOL/L 09/21/2016 7:28 PM CDT [facility] SERUM OR PLASMA SPECIMEN / Unknown 09/21/2016 8:07 PM CDT 09/21/2016 7:08 PM CDT us Generic Conversion [facility] Final R esult [facility] [address] [place] [phone], [id number] documented in this encounter Visit Diagnoses Not on filedocumented in this encounter
--- OUTSIDE RECORDS SUMMARY | 2024-03-20 16:48 | XMS_ITS | Encounter Summary ---
Author Organization [facility] Address [address] [place] [address]. [place] [address] [place] [address] Care Team Providers Care Locker Room Supervisor Name Role Phone Unavailable Primary Care Provider Unavailabl e Encounter Details Date Type Department Care Team (Late st Contact Info) Description 09/21/2016 Orders [place] [address] , Generic Conversion, Social History Tobacco Use Types Packs/Day Years Used Date Smoking Tobacco: Never Assessed Comments Unknown Sex and Gender Information Value Date Recorded Sex Assigned at Not on file Legal Sex Female 9:15 PM PHOTO MASK INSPECTOR Gender Identity Not on file Sexual Orientation Not on file documented as of this encounter Plan of Treatment Not on file documented as of this encounter Procedures Procedure Name Priority Date/Time Associated Diagnosis Comments LIPASE Routine 09/21/2016 12:41 PM CDT documented in this encounter Results * LIPASE (09/21/2016 12:41 PM CDT) LIPASE 11 8 - 78 UNITS/L 09/21/2016 12:05 PM CDT [facility] SERUM OR PLASMA SPECIMEN / Unknown 09/21/2016 12:41 PM CDT 09/21/2016 11:42 AM CDT us Generic Conversion [facility] Final R esult [facility] [address] [place] [address], [id number] documented in this encounter Visit Diagnoses Not on filedocumented in this encounter
--- OUTSIDE RECORDS SUMMARY | 2024-03-20 16:48 | XMS_ITS | Encounter Summary ---
Author Organization [facility] Address [address] [place] [address]. [place] [address] [place] [address] Care Team Providers Care Macaroni Maker Name Role Phone Unavailable Primary Care Provider Unavailabl e Encounter Details Date Type Department Care Team (Late st Contact Info) Description 09/21/2016 Orders [place] [address] , Generic Conversion, Social History Tobacco Use Types Packs/Day Years Used Date Smoking Tobacco: Never Assessed Comments Unknown Sex and Gender Information Value Date Recorded Sex Assigned at Not on file Legal Sex Female 9:15 PM WET PROCESS MILLER Gender Identity Not on file Sexual Orientation [...] - 5.0 MMOL/L 09/21/2016 12:13 PM CDT [facility] Comment:Critical results jayden led to and read back by ANSON Grant at 1312 by SERUM OR PLASMA SPECIMEN / Unknown 09/21/2016 12:41 PM CDT 09/21/2016 11:42 AM CDT us Generic Conversion [facility] Final R esult [facility] [address] [place] [address], [id number] documented in this encounter Visit Diagnoses Not on filedocumented in this encounter
--- OUTSIDE RECORDS SUMMARY | 2024-03-20 16:48 | XMS_ITS | Encounter Summary ---
Author Organization [facility] Address [address] [place] [address]. [place] [address] [place] [address] Care Team Providers Care Machine Loader Name Role Phone Unavailable Primary Care Provider Unavailabl e Encounter Details Date Type Department Care Team (Late st Contact Info) Description 09/21/2016 Orders [place] [address] , Generic Conversion, Social History Tobacco Use Types Packs/Day Years Used Date Smoking Tobacco: Never Assessed Comments Unknown Sex and Gender Information Value Date Recorded Sex Assigned at Not on file Legal Sex Female 9:15 PM MANAGER PAID Gender Identity Not on file Sexual Orientation [...] - 295 MOSM/KG 09/21/2016 8:02 PM CDT [facility] SERUM SPECIMEN / Unknown 09/21/2016 8:07 PM CDT 09/21/2016 7:08 PM CDT us Generic Conversion [facility] Final R esult [facility] [address] [place] [address], [id number] documented in this encounter Visit Diagnoses Not on filedocumented in this encounter
--- OUTSIDE RECORDS SUMMARY | 2024-03-20 16:49 | XMS_ITS | Encounter Summary ---
Author Organization [facility] Address [address] [place] [address]. [place] [address] [place] [address] Care Team Providers Care Paddock Judge Name Role Phone Unavailable Primary Care Provider Unavailabl e Encounter Details Date Type Department Care Team (Late st Contact Info) Description 06/21/2016 Emergency [facility] Emergency [address] [place] [address] Letha Mitchell FNP [address] [id number] Social History Tobacco Use Types Packs/Day Years Used Date Smoking Tobacco: Never Assessed Comments Unknown Sex and Gender Information Value Date Recorded Sex Assigned at Not on file Legal Sex Female 9:15 PM INTERNATIONAL MARKETING INTERN Gender Identity Not on file Sexual Orientation Not on file documented as of this encounter Plan of Treatment Not on file documented as of this encounter Visit Diagnoses Diagnosis Acute sinusitis Acute sinusitis, unspecified documented in this encounter
--- OUTSIDE RECORDS SUMMARY | 2024-03-20 16:49 | XMS_ITS | Encounter Summary ---
Author Organization [facility] Address [address] [place] [address]. [place], [place] [address] [place] [address] Care Team Providers Care Director Of Advertising Sales Name Role Phone Ashley ZUNIGA MD, Hermes Perez Primary Care Provid er Encounter Details Date Type Department Care Team (Latest Contact Info) Description 05/11/2016 Abstract [facility] Social History Tobacco Use Types Packs/Day Years Used Date Smoking Tobacco: Never Assessed Comments Unknown Sex and Gender Information Value Date Recorded Sex Assigned at Not on file Legal Sex Female 9:15 PM RADIO INSTALLER Gender Identity Not on file Sexual Orientation Not on file documented as of this encounter Plan of Treatment Not on file documented as of this encounter Visit Diagnoses Not on filedocumented in this encounter Care Teams Director Of Advertising Sales Relationship Specialty Start Date End Date Hermes Ramirez III, MD [address] [facility] [address] [place] [address] PCP - General FAMILY PRACTICE 06/20/17 documented as of this encounter
--- OUTSIDE RECORDS SUMMARY | 2024-03-20 16:49 | XMS_ITS | Encounter Summary ---
Author Organization [facility] Address [address] [place] [address]. [place] [address] [place] [address] Care Team Providers Care Digital Music Instructor Name Role Phone Unavailable Primary Care Provider Unavailabl e Encounter Details Date Type Department Care Team (Late st Contact Info) Description 06/19/2016 Emergency [facility] [address] [facility] [place] [address] Su Mays MD [address] [address] Social History Tobacco Use Types Packs/Day Years Used Date Smoking Tobacco: Never Assessed Comments Unknown Sex and Gender Information Value Date Recorded Sex Assigned at Not on file Legal Sex Female 9:15 PM HEALTH TYPE TECHNICIAN Gender Identity Not on file Sexual Orientation Not on file documented as of this encounter Plan of Treatment Not on file documented as of this encounter Visit Diagnoses Diagnosis Headache documented in this encounter
--- OUTSIDE RECORDS SUMMARY | 2024-03-20 16:49 | XMS_ITS | Encounter Summary ---
Author Organization [facility] Address [address] [place] [address]. [place] [address] [place] [address] Care Team Providers Care Editing Intern Name Role Phone Ashley ZUNIGA MD, Hermes Perez Primary Care Provid er Encounter Details Date Type Department Care Team (Late st Contact Info) Description 04/17/2016 Abstract [facility] [address] [facility] [place] [address] Devan Richards MD [address] [place] [address] Social History Tobacco Use Types Packs/Day Years Used Date Smoking Tobacco: Never Assessed Comments Unknown Sex and Gender Information Value Date Recorded Sex Assigned at Not on file Legal Sex Female 9:15 PM MANAGER CUSTOMS Gender Identity Not on file Sexual Orientation Not on file documented as of this encounter Plan of Treatment Not on file documented as of this encounter Visit Diagnoses Diagnosis Migraine without status migrainosus, not intractable Migraine, unspecified, without mention of intractable migraine without mention of status migrainosus documented in this encounter Care Teams Editing Intern Relationship Specialty Start Date End Date Hermes Ramirez III, MD [address] [facility] [address] [place] [address] PCP - General FAMILY PRACTICE 06/20/17 documented as of this encounter
--- OUTSIDE RECORDS SUMMARY | 2024-03-20 16:49 | XMS_ITS | Encounter Summary ---
Author Organization [facility] Address [address] [place] [address]. [place] [address] [place] [address] Care Team Providers Care Courtroom Clerk Name Role Phone Ashley ZUNIGA MD, Hermes Perez Primary Care Provid er Encounter Details Date Type Department Care Team (Late st Contact Info) Description 05/06/2016 Abstract [facility] [address] [facility] [place] [address] Social History Tobacco Use Types Packs/Day Years Used Date Smoking Tobacco: Never Assessed Comments Unknown Sex and Gender Information Value Date Recorded Sex Assigned at Not on file Legal Sex Female 9:15 PM LOCKER ROOM CLERK Gender Identity Not on file Sexual Orientation Not on file documented as of this encounter Plan of Treatment Not on file documented as of this encounter Visit Diagnoses Diagnosis Headache documented in this encounter Care Teams Courtroom Clerk Relationship Specialty Start Date End Date Hermes Ramirez III, MD [address] [facility] [address] [place] [address] PCP - General FAMILY PRACTICE 06/20/17 documented as of this encounter
--- OUTSIDE RECORDS SUMMARY | 2024-03-20 16:49 | XMS_ITS | Encounter Summary ---
Author Organization [facility] Address [address] [place] [address]. [place], [place] [address] [place] [address] Care Team Providers Care Teletypewriter Installer Name Role Phone Unavailable Primary Care Provider Unavailabl e Encounter Details Date Type Department Care Team (Late st Contact Info) Description 05/10/2016 Emergency [facility] [address] [place] [address] Judith Santos, RETAIL STORE MANAGER-BC Social History Tobacco Use Types Packs/Day Years Used Date Smoking Tobacco: Never Assessed Comments Unknown Sex and Gender Information Value Date Recorded Sex Assigned at Not on file Legal Sex Female 9:15 PM WHITE MIXING OPERATOR Gender Identity Not on file Sexual Orientation Not on file documented as of this encounter Plan of Treatment Not on file documented as of this encounter Visit Diagnoses Diagnosis Anxiety disorder Anxiety state, unspecified documented in this encounter
--- OUTSIDE RECORDS SUMMARY | 2024-03-20 16:49 | XMS_ITS | Encounter Summary ---
Author Organization [facility] Address [address] [place] [address]. [place], [place] [address] [place] [address] Care Team Providers Care Site Reliability Engineer Name Role Phone Unavailable Primary Care Provider Unavailabl e Encounter Details Date Type Department Care Team (Late st Contact Info) Description 09/02/2016 Emergency [facility] [address] [facility] [place] [address] oMna Galindo, PRIME BROKER [address] [place] [address] Social History Tobacco Use Types Packs/Day Years Used Date Smoking Tobacco: Never Assessed Comments Unknown Sex and Gender Information Value Date Recorded Sex Assigned at Not on file Legal Sex Female 9:15 PM MEDICAL ASSISTANT Gender Identity Not on file Sexual Orientation Not on file documented as of this encounter Plan of Treatment Not on file documented as of this encounter Visit Diagnoses Diagnosis Pain in left shoulder Pain in joint, shoulder region documented in this encounter
--- OUTSIDE RECORDS SUMMARY | 2024-03-20 16:49 | XMS_ITS | Encounter Summary ---
Author Organization [facility] Address [address] [place] [address]. [place], [place] [address] [place] [address] Care Team Providers Care Gaming Cage Cashier Name Role Phone Unavailable Primary Care Provider Unavailabl e Encounter Details Date Type Department Care Team (Late st Contact Info) Description 04/26/2016 Emergency [facility] Emergency [address] [place] [address] Judith Santos, TRAVELING INVENTORY ASSOCIATE-BC Social History Tobacco Use Types Packs/Day Years Used Date Smoking Tobacco: Never Assessed Comments Unknown Sex and Gender Information Value Date Recorded Sex Assigned at Not on file Legal Sex Female 9:15 PM PHYSICIAN GENERAL PRACTICE Gender Identity Not on file Sexual Orientation Not on file documented as of this encounter Plan of Treatment Not on file documented as of this encounter Visit Diagnoses Diagnosis Headache documented in this encounter
--- OUTSIDE RECORDS SUMMARY | 2024-03-20 16:49 | XMS_ITS | Encounter Summary ---
Author Organization [facility] Address [address] [place] [address]. [place] [address] [place] [address] Care Team Providers Care Outsole Splicer Name Role Phone Ashley ZUNIGA MD, Hermes Perez Primary Care Provid er Encounter Details Date Type Department Care Team (Late st Contact Info) Description 06/30/2016 Abstract [facility] [address] [facility] [place] [address] Ziyad Hu MD [address] [place] [id number] Social History Tobacco Use Types Packs/Day Years Used Date Smoking Tobacco: Never Assessed Comments Unknown Sex and Gender Information Value Date Recorded Sex Assigned at Not on file Legal Sex Female 9:15 PM FURNACE BRAZER Gender Identity Not on file Sexual Orientation Not on file documented as of this encounter Plan of Treatment Not on file documented as of this encounter Visit Diagnoses Diagnosis Headache documented in this encounter Care Teams Outsole Splicer Relationship Specialty Start Date End Date Hermes Ramirez III, MD [address] [facility] [address] [place] [address] PCP - General FAMILY PRACTICE 06/20/17 documented as of this encounter
--- OUTSIDE RECORDS SUMMARY | 2024-03-20 16:49 | XMS_ITS | Encounter Summary ---
Author Organization [facility] Address [address] [place] [address]. [place] [address] [place] [address] Care Team Providers Care Director Graphics Name Role Phone Ashley ZUNIGA MD, Hermes Perez Primary Care Provid er Encounter Details Date Type Department Care Team (Late st Contact Info) Description 05/02/2016 Abstract [facility] [address] [facility] [place] [place] [address] Social History Tobacco Use Types Packs/Day Years Used Date Smoking Tobacco: Never Assessed Comments Unknown Sex and Gender Information Value Date Recorded Sex Assigned at Not on file Legal Sex Female 9:15 PM PUBLIC BATH ATTENDANT Gender Identity Not on file Sexual Orientation Not on file documented as of this encounter Plan of Treatment Not on file documented as of this encounter Visit Diagnoses Diagnosis Noninfective gastroenteritis and colitis Other and unspecified noninfectious gastroenteritis and colitis documented in this encounter Care Teams Director Graphics Relationship Specialty Start Date End Date Hermes Ramirez III, MD [address] [facility] [address] [place] [address] PCP - General FAMILY PRACTICE 06/20/17 documented as of this encounter
--- OUTSIDE RECORDS SUMMARY | 2024-03-20 16:49 | XMS_ITS | Encounter Summary ---
Author Organization [facility] Address [address] [place] [address]. [place], [place] [address] [place] [address] Care Team Providers Care Offc Spec Name Role Phone Unavailable Primary Care Provider Unavailabl e Encounter Details Date Type Department Care Team (Late st Contact Info) Description 06/14/2016 Emergency [facility] Emergency [address] [place] [address] Nichelle Trejo, ELISA [address] [place] [address] Social History Tobacco Use Types Packs/Day Years Used Date Smoking Tobacco: Never Assessed Comments Unknown Sex and Gender Information Value Date Recorded Sex Assigned at Not on file Legal Sex Female 9:15 PM ECOLOGY PROFESSOR Gender Identity Not on file Sexual Orientation Not on file documented as of this encounter Plan of Treatment Not on file documented as of this encounter Visit Diagnoses Diagnosis Headache documented in this encounter
--- OUTSIDE RECORDS SUMMARY | 2024-03-20 16:49 | XMS_ITS | Encounter Summary ---
Author Organization [facility] Address [address] [place] [address]. [place] [address] [place] [address] Care Team Providers Care Automation Operator Name Role Phone Ashley ZUNGIA MD, Hermes Perez Primary Care Provid er Encounter Details Date Type Department Care Team (Late st Contact Info) Description 06/25/2016 Abstract [facility] [address] [facility] [place] [address] Cristi Bryant MD [address] [place] [address] Social History Tobacco Use Types Packs/Day Years Used Date Smoking Tobacco: Never Assessed Comments Unknown Sex and Gender Information Value Date Recorded Sex Assigned at Not on file Legal Sex Female 9:15 PM DRIVER LICENSE EXAMINER Gender Identity Not on file Sexual Orientation Not on file documented as of this encounter Plan of Treatment Not on file documented as of this encounter Visit Diagnoses Diagnosis Headache documented in this encounter Care Teams Automation Operator Relationship Specialty Start Date End Date Hermes Ramirez III, MD [address] [facility] [address] [place] [address] PCP - General FAMILY PRACTICE 06/20/17 documented as of this encounter
--- OUTSIDE RECORDS SUMMARY | 2024-03-20 16:49 | XMS_ITS | Encounter Summary ---
Author Organization [facility] Address [address] [place] [address]. [place] [address] [place] [address] Care Team Providers Care Licensed Surveyor Name Role Phone Unavailable Primary Care Provider Unavailabl e Encounter Details Date Type Department Care Team (Late st Contact Info) Description 09/08/2016 Emergency [facility] Emergency [address] [place] [address] Jimy Ramirez, APNP [address] [place] [address] Social History Tobacco Use Types Packs/Day Years Used Date Smoking Tobacco: Never Assessed Comments Unknown Sex and Gender Information Value Date Recorded Sex Assigned at Not on file Legal Sex Female 9:15 PM BASKET TURNER Gender Identity Not on file Sexual Orientation Not on file documented as of this encounter Plan of Treatment Not on file documented as of this encounter Visit Diagnoses Diagnosis Strain of muscle and tendon of back wall of thorax, initial encounter documented in this encounter
--- OUTSIDE RECORDS SUMMARY | 2024-03-20 16:49 | XMS_ITS | Encounter Summary ---
Author Organization [facility] Address [address] [place] [address]. [place] [address] [place] [address] Care Team Providers Care Loom Control Chain Builder Name Role Phone Unavailable Primary Care Provider Unavailabl e Encounter Details Date Type Department Care Team (Late st Contact Info) Description 09/20/2016 Orders Only [place] [address] , Generic Conversion, Social History Tobacco Use Types Packs/Day Years Used Date Smoking Tobacco: Never Assessed Comments Unknown Sex and Gender Information Value Date Recorded Sex Assigned at Not on file Legal Sex Female 9:15 PM FOREIGN BANKNOTE TELLER Gender Identity Not on file Sexual Orientation [...] <1 MIU/ML 09/21/19 17 2:10 PM CDT [facility] Comment: <5 IS NEGATIVE 5-25 IS BORDERLINE >25 IS POSITIVE SERUM OR PLASMA SPECIMEN / Unknown 09/20/2016 2:44 PM CDT 09/20/2016 1:45 PM CDT us Generic Conversion Md [facility] Final R esult [facility] [address] [place] [address], [id number] documented in this encounter Visit Diagnoses Not on filedocumented in this encounter
--- OUTSIDE RECORDS SUMMARY | 2024-03-20 16:49 | XMS_ITS | Encounter Summary ---
Author Organization [facility] Address [address] [place] [address]. [place] [address] [place] [address] Care Team Providers Care Quarry Worker Name Role Phone Unavailable Primary Care Provider Unavailabl e Encounter Details Date Type Department Care Team (Late st Contact Info) Description 05/10/2016 Orders [place] [address] , Generic Conversion, Social History Tobacco Use Types Packs/Day Years Used Date Smoking Tobacco: Never Assessed Comments Unknown Sex and Gender Information Value Date Recorded Sex Assigned at Not on file Legal Sex Female 9:15 PM PANTOGRAPH ENGRAVER Gender Identity Not on file Sexual Orientation Not on file documented as of this encounter Plan of Treatment Not on file documented as of this encounter Procedures Procedure Name Priority Date/Time Associated Diagnosis Comments CULTURE STREP A Nurse Collected Priority 05/10/2016 6:02 PM PANTOGRAPH ENGRAVER documented in this encounter Results * CULTURE STREP A (05/10/2016 6:02 PM PANTOGRAPH ENGRAVER) SPEC DESCRIPTION THROAT 05/10/2016 6:02 PM PANTOGRAPH ENGRAVER [facility] SPECIAL REQUESTS NO SPECIAL REQUEST 05/10/2016 6:02 PM PANTOGRAPH ENGRAVER [facility] CULTURE RESULT NO STREPTOCOCCUS PYOGENES (GROUP A) ISOLATED 05/12/2016 8:29 PM PANTOGRAPH ENGRAVER [facility] THROAT SWAB / Unknown 05/10/2016 6:02 PM PANTOGRAPH ENGRAVER 05/10/2016 6:30 PM PANTOGRAPH ENGRAVER us Generic Conversion Md [facility] - GENERAL ORDERABLES Final Result [facility] [address] [place] [address], [place] [phone] [id number] [facility] [address] [place] [address], [place] [phone] [id number] documented in this encounter Visit Diagnoses Not on filedocumented in this encounter
--- OUTSIDE RECORDS SUMMARY | 2024-03-20 16:49 | XMS_ITS | Encounter Summary ---
Author Organization [facility] Address [address] [place] [address]. [place] [address] [place] [address] Care Team Providers Care Electronics Manufacturer Name Role Phone Ashley ZUNIGA MD, Hermes Perez Primary Care Provid er Encounter Details Date Type Department Care Team (Late st Contact Info) Description 06/16/2016 Abstract [facility] [address] [place] [address] Akil Soriano MD [address] [place] [address] Social History Tobacco Use Types Packs/Day Years Used Date Smoking Tobacco: Never Assessed Comments Unknown Sex and Gender Information Value Date Recorded Sex Assigned at Not on file Legal Sex Female 9:15 PM FOOD ASSEMBLER COMMISSARY KITCHEN Gender Identity Not on file Sexual Orientation Not on file documented as of this encounter Plan of Treatment Not on file documented as of this encounter Visit Diagnoses Diagnosis Headache documented in this encounter Care Teams Electronics Manufacturer Relationship Specialty Start Date End Date Hermes Ramirez III, MD [address] [facility] 105 [place] [address] PCP - General FAMILY PRACTICE 06/20/17 documented as of this encounter
--- OUTSIDE RECORDS SUMMARY | 2024-03-20 16:49 | XMS_ITS | Encounter Summary ---
Author Organization [facility] Address [address] [place] [address]. [place], [place] [address] [place] [address] Care Team Providers Care Cardiac Nurse Name Role Phone Ashley ZUNIGA MD, Hermes Perez Primary Care Provid er Encounter Details Date Type Department Care Team (Latest Contact Info) Description 09/19/2016 Abstract [facility] Social History Tobacco Use Types Packs/Day Years Used Date Smoking Tobacco: Never Assessed Comments Unknown Sex and Gender Information Value Date Recorded Sex Assigned at Not on file Legal Sex Female 9:15 PM SAP TREASURY CONSULTANT Gender Identity Not on file Sexual Orientation Not on file documented as of this encounter Plan of Treatment Not on file documented as of this encounter Visit Diagnoses Not on filedocumented in this encounter Care Teams Cardiac Nurse Relationship Specialty Start Date End Date Hermes Ramirez III, MD [address] [facility] [address] [place] [address] PCP - General FAMILY PRACTICE 06/20/17 documented as of this encounter
--- OUTSIDE RECORDS SUMMARY | 2024-03-20 16:49 | XMS_ITS | Encounter Summary ---
Author Organization [facility] Address [address] [place] [address]. [place], [place] [address] [place] [address] Care Team Providers Care Chain Saw Driver Name Role Phone Ashley ZUNIGA MD, Hermes Perez Primary Care Provid er Encounter Details Date Type Department Care Team (Latest Contact Info) Description 02/15/2016 Abstract [facility] Social History Tobacco Use Types Packs/Day Years Used Date Smoking Tobacco: Never Assessed Comments Unknown Sex and Gender Information Value Date Recorded Sex Assigned at Not on file Legal Sex Female 9:15 PM SAMPLE GRINDER Gender Identity Not on file Sexual Orientation Not on file documented as of this encounter Plan of Treatment Not on file documented as of this encounter Visit Diagnoses Not on filedocumented in this encounter Care Teams Chain Saw Driver Relationship Specialty Start Date End Date Hermes Ramirez III, MD [address] [facility] [address] [place] [address] PCP - General FAMILY PRACTICE 06/20/17 documented as of this encounter
--- OUTSIDE RECORDS SUMMARY | 2024-03-20 16:49 | XMS_ITS | Encounter Summary ---
Author Organization [facility] Address [address] [place] [address]. [place], [place] [address] [place] [address] Care Team Providers Care Medical Anthropologist Name Role Phone Ashley ZUNIGA MD, Hermes Perez Primary Care Provid er Encounter Details Date Type Department Care Team (Latest Contact Info) Description 04/27/2016 Abstract [facility] Medical Group Social History Tobacco Use Types Packs/Day Years Used Date Smoking Tobacco: Never Assessed Comments Unknown Sex and Gender Information Value Date Recorded Sex Assigned at Not on file Legal Sex Female 9:15 PM WHITE SUGAR SUPERVISOR Gender Identity Not on file Sexual Orientation Not on file documented as of this encounter Plan of Treatment Not on file documented as of this encounter Visit Diagnoses Not on filedocumented in this encounter Care Teams Medical Anthropologist Relationship Specialty Start Date End Date Hermes Ramirez III, MD [address] [facility] [address] [place] [address] PCP - General FAMILY PRACTICE 06/20/17 documented as of this encounter
--- OUTSIDE RECORDS SUMMARY | 2024-03-20 16:49 | XMS_ITS | Encounter Summary ---
Author Organization [facility] Address [address] [place] [address]. [place] [address] [place] [address] Care Team Providers Care Farm Advisor Name Role Phone Unavailable Primary Care Provider Unavailabl e Encounter Details Date Type Department Care Team (Late st Contact Info) Description 05/10/2016 Orders Only [place] [address] , Generic Conversion, Social History Tobacco Use Types Packs/Day Years Used Date Smoking Tobacco: Never Assessed Comments Unknown Sex and Gender Information Value Date Recorded Sex Assigned at Not on file Legal Sex Female 9:15 PM JAVA WEB ARCHITECT Gender Identity Not on file Sexual Orientation Not on file documented as of this encounter Plan of Treatment Not on file documented as of this encounter Procedures Procedure Name Priority Date/Time Associated Diagnosis Comments RAPID STREP A Nurse Collected Priority 05/10/2016 6:02 PM JAVA WEB ARCHITECT documented in this encounter Results * RAPID STREP A (05/10/2016 6:02 PM JAVA WEB ARCHITECT) SPEC DESCRIPTION THROAT 05/10/2016 6:02 PM JAVA WEB ARCHITECT [facility] SPECIAL REQUESTS NO SPECIAL REQUEST 05/10/2016 6:02 PM JAVA WEB ARCHITECT [facility] RAPID STREP TEST NEGATIVE FOR GROUP A BETA STREP 05/10/2016 6:44 PM JAVA WEB ARCHITECT [facility] THROAT SWAB / Unknown 05/10/2016 6:02 PM JAVA WEB ARCHITECT 05/10/2016 6:30 PM JAVA WEB ARCHITECT us Generic Conversion Md [facility] - GENERAL ORDERABLES Final Result [facility] [address] [place] [address], [id number] documented in this encounter Visit Diagnoses Not on filedocumented in this encounter
--- OUTSIDE RECORDS SUMMARY | 2024-03-20 16:49 | XMS_ITS | Encounter Summary ---
Author Organization [facility] Address [address] [place] [address]. [place] [address] [place] [address] Care Team Providers Care Director Of Student Aid Name Role Phone Unavailable Primary Care Provider Unavailabl e Encounter Details Date Type Department Care Team (Late st Contact Info) Description 05/31/2016 Emergency [facility] [address] [facility] [place] [address] Christian Eckert MD [address] [address] Social History Tobacco Use Types Packs/Day Years Used Date Smoking Tobacco: Never Assessed Comments Unknown Sex and Gender Information Value Date Recorded Sex Assigned at Not on file Legal Sex Female 9:15 PM DATA VISUALIZATION DEVELOPER Gender Identity Not on file Sexual Orientation Not on file documented as of this encounter Plan of Treatment Not on file documented as of this encounter Visit Diagnoses Diagnosis Migraine without status migrainosus, not intractable Migraine, unspecified, without mention of intractable migraine without mention of status migrainosus documented in this encounter
--- OUTSIDE RECORDS SUMMARY | 2024-03-20 16:49 | XMS_ITS | Encounter Summary ---
Author Organization [facility] Address [address] [place] [address]. [place], [place] [address] [place] [address] Care Team Providers Care Area Operations Manager Name Role Phone Ashley ZUNIGA MD, Hermes Perez Primary Care Provid er Encounter Details Date Type Department Care Team (Latest Contact Info) Description 06/24/2016 Abstract [facility] Group Social History Tobacco Use Types Packs/Day Years Used Date Smoking Tobacco: Never Assessed Comments Unknown Sex and Gender Information Value Date Recorded Sex Assigned at Not on file Legal Sex Female 9:15 PM MANAGER INFRASTRUCTURE Gender Identity Not on file Sexual Orientation Not on file documented as of this encounter Plan of Treatment Not on file documented as of this encounter Visit Diagnoses Not on filedocumented in this encounter Care Teams Area Operations Manager Relationship Specialty Start Date End Date Hermes Ramirez III, MD [address] [facility] [address] [place] [address] PCP - General FAMILY PRACTICE 06/20/17 documented as of this encounter
--- OUTSIDE RECORDS SUMMARY | 2024-03-20 16:49 | XMS_ITS | Encounter Summary ---
Author Organization [facility] Address [address] [place] [address]. [place], [place] [address] [place] [address] Care Team Providers Care Merchandise Adjustment Clerk Name Role Phone Ashley ZUNIGA MD, Hermes Perez Primary Care Provid er Encounter Details Date Type Department Care Team (Latest Contact Info) Description 06/20/2016 Abstract [facility] Social History Tobacco Use Types Packs/Day Years Used Date Smoking Tobacco: Never Assessed Comments Unknown Sex and Gender Information Value Date Recorded Sex Assigned at Not on file Legal Sex Female 9:15 PM CORK COMPOUNDER Gender Identity Not on file Sexual Orientation Not on file documented as of this encounter Plan of Treatment Not on file documented as of this encounter Visit Diagnoses Not on filedocumented in this encounter Care Teams Merchandise Adjustment Clerk Relationship Specialty Start Date End Date Hermes Ramirez III, MD [address] [facility] [address] [place] [address] PCP - General FAMILY PRACTICE 06/20/17 documented as of this encounter
--- OUTSIDE RECORDS SUMMARY | 2024-03-20 16:49 | XMS_ITS | Encounter Summary ---
Author Organization [facility] Address [address] [place] [address]. [place], [place] [address] [place] [address] Care Team Providers Care Customs Broker Name Role Phone Unavailable Primary Care Provider Unavailabl e Encounter Details Date Type Department Care Team (Late st Contact Info) Description 09/20/2016 Abstract [facility] Emergency [address] [place] [address] Eric Kovacs MD Zaidi, Fawwad, MD [address] [place] [address] [place] [address] Social History Tobacco Use Types Packs/Day Years Used Date Smoking Tobacco: Never Assessed Comments Unknown Sex and Gender Information Value Date Recorded Sex Assigned at Not on file Legal Sex Female 9:15 PM PATROLLER Gender Identity Not on file Sexual Orientation Not on file documented as of this encounter Plan of Treatment Not on file documented as of this encounter Visit Diagnoses Diagnosis 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
--- OUTSIDE RECORDS SUMMARY | 2024-03-20 16:50 | XMS_ITS | Encounter Summary ---
Author Organization [facility] Address [address] [place] [address]. [place] [address] [place] [address] Care Team Providers Care Manager Search Engine Name Role Phone Unavailable Primary Care Provider Unavailabl e Encounter Details Date Type Department Care Team (Late st Contact Info) Description 12/30/2015 Emergency [facility] Emergency [address] [place] [address] Letha Mitchell FNP [address] [id number] Social History Tobacco Use Types Packs/Day Years Used Date Smoking Tobacco: Never Assessed Comments Unknown Sex and Gender Information Value Date Recorded Sex Assigned at Not on file Legal Sex Female 9:15 PM LIFE SUPPORT TECHNICIAN Gender Identity Not on file Sexual Orientation Not on file documented as of this encounter Plan of Treatment Not on file documented as of this encounter Visit Diagnoses Diagnosis Migraine without status migrainosus, not intractable Migraine, unspecified, without mention of intractable migraine without mention of status migrainosus documented in this encounter
--- OUTSIDE RECORDS SUMMARY | 2024-03-20 16:50 | XMS_ITS | Encounter Summary ---
Author Organization [facility] Address [address] [place] [address]. [place], [place] [address] [place] [address] Care Team Providers Care Pit Inspector Name Role Phone Ashley ZUNIGA MD, Hermes Perez Primary Care Provid er Encounter Details Date Type Department Care Team (Latest Contact Info) Description 12/30/2015 Abstract [facility] Social History Tobacco Use Types Packs/Day Years Used Date Smoking Tobacco: Never Assessed Comments Unknown Sex and Gender Information Value Date Recorded Sex Assigned at Not on file Legal Sex Female 9:15 PM RADIO DISPATCHER Gender Identity Not on file Sexual Orientation Not on file documented as of this encounter Plan of Treatment Not on file documented as of this encounter Visit Diagnoses Not on filedocumented in this encounter Care Teams Pit Inspector Relationship Specialty Start Date End Date Hermes Ramirez III, MD [address] [facility] [address] [place] [address] PCP - General FAMILY PRACTICE 06/20/17 documented as of this encounter
--- OUTSIDE RECORDS SUMMARY | 2024-03-20 16:50 | XMS_ITS | Encounter Summary ---
Author Organization [facility] Address [address] [place] [address]. [place], [place] [address] [place] [address] Care Team Providers Care Political Science Instructor Name Role Phone Unavailable Primary Care Provider Unavailabl e Encounter Details Date Type Department Care Team (Late st Contact Info) Description 10/05/[address] [facility] Emergency [address] [place] [address] Social History Tobacco Use Types Packs/Day Years Used Date Smoking Tobacco: Never Assessed Comments Unknown Sex and Gender Information Value Date Recorded Sex Assigned at Not on file Legal Sex Female 9:15 PM CHIP DRIER Gender Identity Not on file Sexual Orientation Not on file documented as of this encounter Plan of Treatment Not on file documented as of this encounter Visit Diagnoses Diagnosis Abdominal pain Abdominal pain, unspecified site documented in this encounter
--- OUTSIDE RECORDS SUMMARY | 2024-03-20 16:50 | XMS_ITS | Encounter Summary ---
Author Organization [facility] Address [address] [place] [address]. [place], [place] [address] [place] [address] Care Team Providers Care Tip Tester Name Role Phone Ashley ZUNIGA MD, Hermes Perez Primary Care Provid er Encounter Details Date Type Department Care Team (Latest Contact Info) Description 06/23/2015 Abstract [facility] Medical Group Social History Tobacco Use Types Packs/Day Years Used Date Smoking Tobacco: Never Assessed Comments Unknown Sex and Gender Information Value Date Recorded Sex Assigned at Not on file Legal Sex Female 9:15 PM CAMERA PERSON Gender Identity Not on file Sexual Orientation Not on file documented as of this encounter Plan of Treatment Not on file documented as of this encounter Visit Diagnoses Not on filedocumented in this encounter Care Teams Tip Tester Relationship Specialty Start Date End Date Hermes Ramirez III, MD [address] [facility] 105 [place] [address] PCP - General FAMILY PRACTICE 06/20/17 documented as of this encounter
--- OUTSIDE RECORDS SUMMARY | 2024-03-20 16:50 | XMS_ITS | Encounter Summary ---
Author Organization [facility] Address [address] [place] [address]. [place] [address] [place] [address] Care Team Providers Care Block Breaker Operator Name Role Phone Unavailable Primary Care Provider Unavailabl e Encounter Details Date Type Department Care Team (Late st Contact Info) Description 12/30/2015 Orders [place] [address] , Generic Conversion, Social History Tobacco Use Types Packs/Day Years Used Date Smoking Tobacco: Never Assessed Comments Unknown Sex and Gender Information Value Date Recorded Sex Assigned at Not on file Legal Sex Female 9:15 PM PULLMAN CAR CLERK Gender Identity Not on file Sexual [...] - 147 MMOL/L 12/30/2015 8:26 PM CDT [facility] POTASSIUM S/P/B 4.5 3.5 - 5.0 MMOL/L 12/30/2015 8:26 PM CDT [facility] CHLORIDE S/P/B 110(H) 98 - 107 MMOL/L 12/30/2015 8:26 PM CDT [facility] CALCIUM S/P/B 8.7 8.4 - 10.2 MG/DL 12/30/2015 8:26 PM CDT [facility] CO2 19.8(L) 22 - 29 MMOL/L 12/30/2015 8:26 PM CDT [facility] GLUCOSE 87 70 - 109 MG/DL 12/30/2015 8:26 PM CDT [facility] BUN 41(H) 7 - 19 MG/DL 12/30/2015 8:26 PM CDT [facility] CREATININE S/P/B 2.39(H) 0.60 - 1.10 MG/DL 12/30/2015 8:26 PM CDT [facility] OSMOLALITY (CALC) 287 12/30/2015 8:26 PM CDT [facility] ANION GAP 9 MMOL/L 12/30/2015 8:26 PM CDT [facility] PLASMA SPECIMEN / Unknown 12/30/2015 8:02 PM CDT 12/30/2015 8:04 PM CDT us Generic Conversion Md [facility] Final R esult [facility] [place] [address], [id number] documented in this encounter Visit Diagnoses Not on filedocumented in this encounter
--- OUTSIDE RECORDS SUMMARY | 2024-03-20 16:50 | XMS_ITS | Encounter Summary ---
Author Organization [facility] Address [address] [place] [address]. [place], [place] [address] [place] [address] Care Team Providers Care Superintendent Schools Name Role Phone Ashley ZUNIGA MD, Hermes Perez Primary Care Provid er Encounter Details Date Type Department Care Team (Latest Contact Info) Description 12/21/2015 Abstract [facility] Social History Tobacco Use Types Packs/Day Years Used Date Smoking Tobacco: Never Assessed Comments Unknown Sex and Gender Information Value Date Recorded Sex Assigned at Not on file Legal Sex Female 9:15 PM FINANCE INSURANCE MANAGER Gender Identity Not on file Sexual Orientation Not on file documented as of this encounter Plan of Treatment Not on file documented as of this encounter Visit Diagnoses Not on filedocumented in this encounter Care Teams Superintendent Schools Relationship Specialty Start Date End Date Hermes Ramirez III, MD [address] [facility] [address] [place] [address] PCP - General FAMILY PRACTICE 06/20/17 documented as of this encounter
--- OUTSIDE RECORDS SUMMARY | 2024-03-20 16:50 | XMS_ITS | Encounter Summary ---
Author Organization [facility] Address [address] [place] [address]. 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 Gender Identity Not on file Sexual Orientation Not on file documented as of this encounter Plan of Treatment Not on file documented as of this encounter Procedures Procedure Name Priority Date/Time Associated Diagnosis Comments URINALYSIS TIMED 12/30/2015 7:39 PM CDT documented in this encounter Results * URINALYSIS (12/30/2015 7:39 PM CDT) COLOR (U) LIGHT YELLOW 12/30/2015 7:54 PM CDT [facility] TRANSPARENCY CLEAR 12/30/2015 7:54 PM CDT [facility] SPECIFIC GRAVITY (U) 1.011 1.002 - 1.035 12/30/2015 7:54 PM CDT [facility] U PH 5.0 5 - 8 12/30/2015 7:54 PM CDT [facility] PROTEIN (U) NEGATIVE NEGATIVE 12/30/2015 7:54 PM CDT [facility] URINE GLUCOSE NEGATIVE NEGATIVE MG/DL 12/30/2015 7:54 PM CDT [facility] KETONES MG/DL (U) NEGATIVE NEGATIVE 12/30/2015 7:54 PM CDT [facility] BILIRUBIN (U) NEGATIVE NEGATIVE 12/30/2015 7:54 PM CDT [facility] BLOOD (U) NEGATIVE NEGATIVE 12/30/2015 7:54 PM CDT [facility] NITRITES NEGATIVE NEGATIVE 12/30/2015 7:54 PM CDT [facility] UROBILINOGEN NORMAL 0 - 1 EU/DL 12/30/2015 7:54 PM CDT [facility] LEUKOCYTES (U) NEGATIVE NEGATIVE 12/30/2015 7:54 PM CDT [facility] RBC/HPF 2 /HPF 12/30/2015 7:54 PM CDT [facility] WBC/HPF <1 /HPF 12/30/2015 7:54 PM CDT [facility] BACTERIA (U) NONE /HPF 12/30/2015 7:54 PM CDT [facility] SQUAMOUS EPITHELIALS 1 12/30/2015 7:54 PM CDT [facility] URINE SPECIMEN / Unknown 12/30/2015 7:39 PM CDT 12/30/2015 7:44 PM CDT us Generic Conversion Md MENDOZA URINE ORDERABLES Final Result [facility] [place] [address], [id number] documented in this encounter Visit Diagnoses Not on filedocumented in this encounter
--- OUTSIDE RECORDS SUMMARY | 2024-03-20 16:50 | XMS_ITS | Encounter Summary ---
Author Organization [facility] Address [address] [place] [address]. 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 Gender Identity Not on file Sexual Orientation Not on file documented as of this encounter Plan of Treatment Not on file documented as of this encounter Procedures Procedure Name Priority Date/Time Associated Diagnosis Comments URINALYSIS Nurse Collected Priority 10/05/2015 11:03 PM CDT documented in this encounter Results * (ABNORMAL) URINALYSIS (10/05/2015 11:03 PM CDT) COLOR (U) LIGHT YELLOW 10/05/2015 11:31 PM CDT [facility] TRANSPARENCY CLEAR 10/05/2015 11:31 PM CDT [facility] SPECIFIC GRAVITY (U) 1.010 1.002 - 1.035 10/05/2015 11:31 PM CDT [facility] U PH 6.0 5 - 8 10/05/2015 11:31 PM CDT [facility] PROTEIN (U) NEGATIVE NEGATIVE 10/05/2015 11:31 PM CDT [facility] URINE GLUCOSE NEGATIVE NEGATIVE MG/DL 10/05/2015 11:31 PM CDT [facility] KETONES MG/DL (U) NEGATIVE NEGATIVE 10/05/2015 11:31 PM CDT [facility] BILIRUBIN (U) NEGATIVE NEGATIVE 10/05/2015 11:31 PM CDT [facility] BLOOD (U) NEGATIVE NEGATIVE 10/05/2015 11:31 PM CDT [facility] NITRITES NEGATIVE NEGATIVE 10/05/2015 11:31 PM CDT [facility] UROBILINOGEN NORMAL 0 - 1 EU/DL 10/05/2015 11:31 PM CDT [facility] LEUKOCYTES (U) TRACE(A) NEGATIVE 10/05/2015 11:31 PM CDT [facility] RBC/HPF <1 /HPF 10/05/2015 11:31 PM CDT [facility] WBC/HPF <1 /HPF 10/05/2015 11:31 PM CDT [facility] BACTERIA (U) PRESENT /HPF 10/05/2015 11:31 PM CDT [facility] SQUAMOUS EPITHELIALS 3 10/05/2015 11:31 PM CDT [facility] URINE SPECIMEN / Unknown 10/05/2015 11:03 PM CDT 10/05/2015 11:14 PM CDT us Generic Conversion Md M[facility] URINE ORDERABLES Final Result [facility] [place] [address], [id number] documented in this encounter Visit Diagnoses Not on filedocumented in this encounter
--- OUTSIDE RECORDS SUMMARY | 2024-03-20 16:50 | XMS_ITS | Encounter Summary ---
Author Organization [facility] Address [address] [place] [address]. [place] [address] [place] [address] Care Team Providers Care Mixing Machine Tender Name Role Phone Unavailable Primary Care Provider Unavailabl e Encounter Details Date Type Department Care Team (Late st Contact Info) Description 07/08/2015 Emergency [facility] Emergency [address] [place] [address] Victor Manuel Jaime PA [address] [facility] [address] [place] [address] Social History Tobacco Use Types Packs/Day Years Used Date Smoking Tobacco: Never Assessed Comments Unknown Sex and Gender Information Value Date Recorded Sex Assigned at Not on file Legal Sex Female 9:15 PM ORDER ANALYST Gender Identity Not on file Sexual Orientation Not on file documented as of this encounter Plan of Treatment Not on file documented as of this encounter Visit Diagnoses Diagnosis Migraine without status migrainosus, not intractable Migraine, unspecified, without mention of intractable migraine without mention of status migrainosus documented in this encounter
--- OUTSIDE RECORDS SUMMARY | 2024-03-20 16:50 | XMS_ITS | Encounter Summary ---
Author Organization [facility] Address [address] [place] [address]. 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
--- OUTSIDE RECORDS SUMMARY | 2024-03-20 16:50 | XMS_ITS | Encounter Summary ---
Author Organization [facility] Address [address] [place] [address]. 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
--- OUTSIDE RECORDS SUMMARY | 2024-03-20 16:50 | XMS_ITS | Encounter Summary ---
Author Organization [facility] Address [address] [place] [address]. 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 Gender Identity Not on file Sexual [...] - 10.8 x10'3/uL 12/30/2015 8:14 PM CDT [facility] RBC 2.96(L) 4.10 - 5.40 x10'6/uL 12/30/2015 8:14 PM CDT [facility] HGB 10.0(L) 12.0 - 16.0 G/DL 12/30/2015 8:14 PM CDT [facility] HCT 28.9(L) 36.0 - 47.0 % 12/30/2015 8:14 PM CDT [facility] MCV 97.6 78.0 - 100.0 FL 12/30/2015 8:14 PM CDT [facility] MCH 33.8(H) 27.0 - 31.0 PG 12/30/2015 8:14 PM CDT [facility] MCHC 34.6 33.0 - 36.0 G/DL 12/30/2015 8:14 PM CDT [facility] RDW 13.1 11.5 - 14.5 % 12/30/2015 8:14 PM CDT [facility] PLT 54(L) 150 - 350 x10'3/uL 12/30/2015 8:59 PM CDT [facility] MPV 11.4(H) 7.4 - 10.4 FL 12/30/2015 8:59 PM CDT [facility] ABS. NEUTROPHILS TOTAL 2.46 1.60 - 8.30 x10'3/uL 12/30/2015 8:14 PM CDT [facility] ABS. LYMPHOCYTES 1.03 0.80 - 4.70 x10'3/uL 12/30/2015 8:14 PM CDT [facility] ABS. MONOCYTES 0.27 0.00 - 1.50 x10'3/uL 12/30/2015 8:14 PM CDT [facility] ABS. EOSINOPHILS 0.19 0.00 - 0.40 x10'3/uL 12/30/2015 8:14 PM CDT [facility] ABS. BASOPHILS 0.01 0.00 - 0.20 x10'3/uL 12/30/2015 8:14 PM CDT [facility] ABS. IMMATURE GRANULOCYTES 0.01 0.00 - 0.03 x10'3/uL 12/30/2015 8:14 PM CDT [facility] ABS. NUCLEATED RBC'S 0.00 0.0 x10'3/uL 12/30/2015 8:14 PM CDT [facility] PLASMA SPECIMEN / Unknown 12/30/2015 8:02 PM CDT 12/30/2015 8:04 PM CDT us Generic Conversion Md [facility] Final R esult [facility] [address] [place] [address], [id number] documented in this encounter Visit Diagnoses Not on filedocumented in this encounter
--- OUTSIDE RECORDS SUMMARY | 2024-03-20 16:50 | XMS_ITS | Encounter Summary ---
Author Organization [facility] Address [address] [place] [address]. 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
--- OUTSIDE RECORDS SUMMARY | 2024-03-20 16:50 | XMS_ITS | Encounter Summary ---
Author Organization [facility] Address [address] [place] [address]. [place] [address] [place] [address] Care Team Providers Care Railroad Track Mechanic Name Role Phone Unavailable Primary Care Provider Unavailabl e Encounter Details Date Type Department Care Team (Late st Contact Info) Description 12/29/[address] 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
--- OUTSIDE RECORDS SUMMARY | 2024-03-20 16:50 | XMS_ITS | Encounter Summary ---
Author Organization [facility] Address [address] [place] [address]. 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
--- OUTSIDE RECORDS SUMMARY | 2024-03-20 16:50 | XMS_ITS | Encounter Summary ---
Author Organization [facility] Address [address] [place] [address]. 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
--- OUTSIDE RECORDS SUMMARY | 2024-03-20 16:50 | XMS_ITS | Encounter Summary ---
Author Organization [facility] Address [address] [place] [address]. 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 POTASSIUM S/P/B 4.9 3.5 - 5.0 MMOL/L 10/05/2015 11:[address] [facility] Comment:SLIGHT HEMOLYSIS, RE SULT MAY BE AFFECTED. CHLORIDE S/P/B 118(H) 98 - 107 MMOL/L 10/05/2015 11:[address] [facility] CALCIUM S/P/B 8.5 8.4 - 10.2 MG/DL 10/05/2015 11:[address] [facility] CO2 14.0(L) 22 - 29 MMOL/L 10/05/2015 11:[address] [facility] GLUCOSE 85 70 - 109 MG/DL 10/05/2015 11:[address] [facility] BUN 34(H) 7 - 19 MG/DL 10/05/2015 11:[address] [facility] CREATININE S/P/B 2.07(H) 0.60 - 1.10 MG/DL 10/05/2015 11:[address] [facility] OSMOLALITY (CALC) 284 10/05/2015 11:[address] [facility] ANION GAP 7 MMOL/L 10/05/2015 11:[address] [facility] PLASMA SPECIMEN / Unknown 10/05/2015 10:30 PM CDT 10/05/2015 10:39 PM CDT us Generic Conversion Md [facility] Final R esult [facility] [place] [address], [place] [phone] [id number] documented in this encounter Visit Diagnoses Not on filedocumented in this encounter
--- OUTSIDE RECORDS SUMMARY | 2024-03-20 16:50 | XMS_ITS | Encounter Summary ---
Author Organization [facility] Address [address] [place] [address]. 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
--- OUTSIDE RECORDS SUMMARY | 2024-03-20 16:50 | XMS_ITS | Encounter Summary ---
Author Organization [facility] Address [address] [place] [address]. [place], [place] [address] [place] [address] Care Team Providers Care Lotus Notes Developer Name Role Phone Ashley ZUNIGA MD, Hermes Perez Primary Care Provid er Encounter Details Date Type Department Care Team (Latest Contact Info) Description 05/13/2015 Abstract [facility] Medical [facility] Social History Tobacco Use Types Packs/Day Years Used Date Smoking Tobacco: Never Assessed Comments Unknown Sex and Gender Information Value Date Recorded Sex Assigned at Not on file Legal Sex Female 9:15 PM SHOW GIRL Gender Identity Not on file Sexual Orientation Not on file documented as of this encounter Plan of Treatment Not on file documented as of this encounter Visit Diagnoses Not on filedocumented in this encounter Care Teams Lotus Notes Developer Relationship Specialty Start Date End Date Hermes Ramirez III, MD [address] [facility] [address] [place] [address] PCP - General FAMILY PRACTICE 06/20/17 documented as of this encounter
--- OUTSIDE RECORDS SUMMARY | 2024-03-20 16:50 | XMS_ITS | Encounter Summary ---
Author Organization [facility] Address [address] [place] [address]. [place], [place] [address] [place] [address] Care Team Providers Care Bar Captain Name Role Phone Ashley ZUNIGA MD, Hermes Perez Primary Care Provid er Encounter Details Date Type Department Care Team (Latest Contact Info) Description 10/07/2015 Abstract [facility] Medical Group Social History Tobacco Use Types Packs/Day Years Used Date Smoking Tobacco: Never Assessed Comments Unknown Sex and Gender Information Value Date Recorded Sex Assigned at Not on file Legal Sex Female 9:15 PM SKIP MINER Gender Identity Not on file Sexual Orientation Not on file documented as of this encounter Plan of Treatment Not on file documented as of this encounter Visit Diagnoses Not on filedocumented in this encounter Care Teams Bar Captain Relationship Specialty Start Date End Date Hermes Ramirez III, MD [address] [facility] [address] [place] [address] PCP - General FAMILY PRACTICE 06/20/17 documented as of this encounter
--- OUTSIDE RECORDS SUMMARY | 2024-03-20 16:50 | XMS_ITS | Encounter Summary ---
Author Organization [facility] Address [address] [place] [address]. 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
--- OUTSIDE RECORDS SUMMARY | 2024-03-20 16:50 | XMS_ITS | Encounter Summary ---
Author Organization [facility] Address [address] [place] [address]. 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
--- OUTSIDE RECORDS SUMMARY | 2024-03-20 16:50 | XMS_ITS | Encounter Summary ---
Author Organization [facility] Address [address] [place] [address]. 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 Gender Identity Not on file Sexual Orientation Not on file documented as of this encounter Plan of Treatment Not on file documented as of this encounter Procedures Procedure Name Priority Date/Time Associated Diagnosis Comments LIPASE STAT 10/05/2015 10:30 PM CDT documented in this encounter Results * LIPASE (10/05/2015 10:30 PM CDT) LIPASE 14 8 - 78 UNITS/L 10/05/2015 11:10 PM CDT [facility] SERUM OR PLASMA SPECIMEN / Unknown 10/05/2015 10:30 PM CDT 10/05/2015 10:39 PM CDT us Generic Conversion Md [facility] Final R esult [facility] [place] [address], [id number] documented in this encounter Visit Diagnoses Not on filedocumented in this encounter
--- OUTSIDE RECORDS SUMMARY | 2024-03-20 16:50 | XMS_ITS | Encounter Summary ---
Author Organization [facility] Address [address] [place] [address]. [place], [place] [address] [place] [address] Care Team Providers Care Scraper Tender Name Role Phone Ashley ZUNIGA MD, Hermes Perez Primary Care Provid er Encounter Details Date Type Department Care Team (Latest Contact Info) Description 06/21/2015 Abstract [facility] Social History Tobacco Use Types Packs/Day Years Used Date Smoking Tobacco: Never Assessed Comments Unknown Sex and Gender Information Value Date Recorded Sex Assigned at Not on file Legal Sex Female 9:15 PM CAP SIZER Gender Identity Not on file Sexual Orientation Not on file documented as of this encounter Plan of Treatment Not on file documented as of this encounter Visit Diagnoses Not on filedocumented in this encounter Care Teams Scraper Tender Relationship Specialty Start Date End Date Hermes Ramirez III, MD [address] [facility] [address] [place] [address] PCP - General FAMILY PRACTICE 06/20/17 documented as of this encounter
--- OUTSIDE RECORDS SUMMARY | 2024-03-20 16:50 | XMS_ITS | Encounter Summary ---
Author Organization [facility] Address [address] [place] [address]. 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
--- OUTSIDE RECORDS SUMMARY | 2024-03-20 16:50 | XMS_ITS | Encounter Summary ---
Author Organization [facility] Address [address] [place] [address]. 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
--- OUTSIDE RECORDS SUMMARY | 2024-03-20 16:50 | XMS_ITS | Encounter Summary ---
Author Organization [facility] Address [address] [place] [address]. [place], [place] [address] [place] [address] Care Team Providers Care Consumer Loan Specialist Name Role Phone Ashley ZUNIGA MD, Hermes Perez Primary Care Provid er Encounter Details Date Type Department Care Team (Latest Contact Info) Description 11/08/2015 Abstract [facility] Social History Tobacco Use Types Packs/Day Years Used Date Smoking Tobacco: Never Assessed Comments Unknown Sex and Gender Information Value Date Recorded Sex Assigned at Not on file Legal Sex Female 9:15 PM SENIOR BUSINESS ARCHITECT Gender Identity Not on file Sexual Orientation Not on file documented as of this encounter Plan of Treatment Not on file documented as of this encounter Visit Diagnoses Not on filedocumented in this encounter Care Teams Consumer Loan Specialist Relationship Specialty Start Date End Date Hermes Ramirez III, MD [address] [facility] [address] [place] [address] PCP - General FAMILY PRACTICE 06/20/17 documented as of this encounter
--- OUTSIDE RECORDS SUMMARY | 2024-03-20 16:50 | XMS_ITS | Encounter Summary ---
Author Organization [facility] Address [address] [place] [address]. [place] [address] [place] [address] Care Team Providers Care Farmworker Livestock Name Role Phone Unavailable Primary Care Provider Unavailabl e Encounter Details Date Type Department Care Team (Late st Contact Info) Description 10/05/2015 Orders [place] [address] , Generic Conversion, Social History Tobacco Use Types Packs/Day Years Used Date Smoking Tobacco: Never Assessed Comments Unknown Sex and Gender Information Value Date Recorded Sex Assigned at Not on file Legal Sex Female 9:15 PM RN INTERN Gender Identity Not on file Sexual [...] - 8.3 G/DL 10/05/2015 11:10 PM CDT [facility] ALBUMIN S/P/B 3.6 3.4 - 4.9 G/DL 10/05/2015 11:10 PM CDT [facility] BILIRUBIN TOTAL S/P/B 0.6 0.2 - 1.2 MG/DL 10/05/2015 11:10 PM CDT [facility] BILIRUBIN DIRECT S/P/B 0.3 0.0 - 0.5 MG/DL 10/05/2015 11:10 PM CDT [facility] ALKALINE PHOSPHATASE S/P/B 207(H) 37 - 98 U/L 10/05/2015 11:10 PM CDT [facility] AST 28 5 - 35 U/L 10/05/2015 11:10 PM CDT [facility] ALT 18 0 - 55 U/L 10/05/2015 11:10 PM CDT [facility] PLASMA SPECIMEN / Unknown 10/05/2015 10:30 PM CDT 10/05/2015 10:39 PM CDT us Generic Conversion Md [facility] Final R esult [facility] [address] [place] [address], [id number] documented in this encounter Visit Diagnoses Not on filedocumented in this encounter
--- OUTSIDE RECORDS SUMMARY | 2024-03-20 16:50 | XMS_ITS | Encounter Summary ---
Author Organization [facility] Address [address] [place] [address]. 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
--- OUTSIDE RECORDS SUMMARY | 2024-03-20 16:50 | XMS_ITS | Encounter Summary ---
Author Organization [facility] Address [address] [place] [address]. 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
--- OUTSIDE RECORDS SUMMARY | 2024-03-20 16:50 | XMS_ITS | Encounter Summary ---
Author Organization [facility] Address [address] [place] [address]. [place], [place] [address] [place] [address] Care Team Providers Care Window Tinter Name Role Phone Ashley ZUNIGA MD, Hermes Perez Primary Care Provid er Encounter Details Date Type Department Care Team (Latest Contact Info) Description 01/13/2016 Abstract [facility] Medical [facility] Social History Tobacco Use Types Packs/Day Years Used Date Smoking Tobacco: Never Assessed Comments Unknown Sex and Gender Information Value Date Recorded Sex Assigned at Not on file Legal Sex Female 9:15 PM TRAFFIC OPERATOR Gender Identity Not on file Sexual Orientation Not on file documented as of this encounter Plan of Treatment Not on file documented as of this encounter Visit Diagnoses Not on filedocumented in this encounter Care Teams Window Tinter Relationship Specialty Start Date End Date Hermes Ramirez III, MD [address] [facility] [address] [place] [address] PCP - General FAMILY PRACTICE 06/20/17 documented as of this encounter
--- OUTSIDE RECORDS SUMMARY | 2024-03-20 16:50 | XMS_ITS | Encounter Summary ---
Author Organization [facility] Address [address] [place] [address]. [place] [address] [place] [address] Care Team Providers Care Arc Welding Machine Operator Name Role Phone Unavailable Primary Care Provider Unavailabl e Encounter Details Date Type Department Care Team (Late st Contact Info) Description 10/05/2015 Orders Only [place] [address] , Generic Conversion, Social History Tobacco Use Types Packs/Day Years Used Date Smoking Tobacco: Never Assessed Comments Unknown Sex and Gender Information Value Date Recorded Sex Assigned at Not on file Legal Sex Female 9:15 PM SPANISHER Gender Identity Not on file Sexual Orientation [...] - 10.8 x10'3/uL 10/05/2015 10:[address] [facility] RBC 2.83(L) 4.10 - 5.40 x10'6/uL 10/05/2015 10:[address] [facility] HGB 9.6(L) 12.0 - 16.0 G/DL 10/05/2015 10:[address] [facility] HCT 27.4(L) 36.0 - 47.0 % 10/05/2015 10:[address] [facility] MCV 96.8 78.0 - 100.0 FL 10/05/2015 10:[address] [facility] MCH 33.9(H) 27.0 - 31.0 PG 10/05/2015 10:[address] [facility] MCHC 35.0 33.0 - 36.0 G/DL 10/05/2015 10:[address] [facility] RDW 12.6 11.5 - 14.5 % 10/05/2015 10:[address] [facility] PLT 52(L) 150 - 350 x10'3/uL 10/05/2015 11:[address] [facility] MPV 12.0(H) 7.4 - 10.4 FL 10/05/2015 11:[address] [facility] ABS. NEUTROPHILS TOTAL 2.18 1.60 - 8.30 x10'3/uL 10/05/2015 10:[address] [facility] ABS. LYMPHOCYTES 0.74(L) 0.80 - 4.70 x10'3/uL 10/05/2015 10:[address] [facility] ABS. MONOCYTES 0.27 0.00 - 1.50 x10'3/uL 10/05/2015 10:[address] [facility] ABS. EOSINOPHILS 0.16 0.00 - 0.40 x10'3/uL 10/05/2015 10:[address] [facility] ABS. BASOPHILS 0.01 0.00 - 0.20 x10'3/uL 10/05/2015 10:[address] [facility] ABS. IMMATURE GRANULOCYTES 0.01 0.00 - 0.03 x10'3/uL 10/05/2015 10:[address] [facility] ABS. NUCLEATED RBC'S 0.00 0.0 x10'3/uL 10/05/2015 10:[address] [facility] PLASMA SPECIMEN / Unknown 10/05/2015 10:30 PM CDT 10/05/2015 10:39 PM CDT us Generic Conversion Md [facility] Final R esult [facility] [address] [place] [address], [id number] documented in this encounter Visit Diagnoses Not on filedocumented in this encounter
--- OUTSIDE RECORDS SUMMARY | 2024-03-20 16:50 | XMS_ITS | Encounter Summary ---
Author Organization [facility] Address [address] [place] [address]. [place], [place] [address] [place] [address] Care Team Providers Care Food Trades Assistants Name Role Phone Ashley ZUNIGA MD, Hermes Perez Primary Care Provid er Encounter Details Date Type Department Care Team (Late st Contact Info) Description 01/08/2016 Abstract [place] [facility] [address] [facility] [place] [place] [address] Ziyad Hu MD [address] [place] [address] Social History Tobacco Use Types Packs/Day Years Used Date Smoking Tobacco: Never Assessed Comments Unknown Sex and Gender Information Value Date Recorded Sex Assigned at Not on file Legal Sex Female 9:15 PM WEB APPLICATION DEVELOPER Gender Identity Not on file Sexual Orientation Not on file documented as of this encounter Plan of Treatment Not on file documented as of this encounter Procedures Procedure Name Priority Date/Time Associated Diagnosis Comments ECG 12-LEAD Routine 01/08/2016 1:05 PM CDT documented in this encounter Results * ECG 12 lead (01/08/2016 1:05 PM CDT) 01/08/2016 1:05 PM CDT Narrative [facility] - 01/08/2016 5:16 PM CDT ? [facility] ? [address] [place], [place] ??[address] ? Test Date: ?2016-01-08 Pat Name: ? MISHA JACKSON ?Department: ?? 1 ? Room: ? Gender: ? F ?Enroute Controller: ?? SBEAL : ?1980 ? Requested By: CHANO LITTLEJOHN Order Number: [id number] ? Reading MD: ?? Hugo Lai ? Measurements Intervals ?[place] ? Rate: ? 91 ? P: ?-1 FL: ? 179 ?QRS: ?13 QRSD: ? 77 ? T: ?30 QT: ? 380 ? QTc: ?468 ? Interpretive Statements SINUS RHYTHM LOW QRS VOLTAGE IN PRECORDIAL LEADS ??[QRS DEFLECTION < 1.0 mV IN CHEST LEADS] ANTEROSEPTAL MYOCARDIAL INFARCTION , OF INDETERMINATE AGE [40+ ms Q WAVE IN V1-V4] Procedure Note , Generic Conversion, - 11/13/2018 [facility] [address] [place] [address] Test Date: 2016-01-08 Pat Name: MISHA JACKSON Department: 1 Room: Gender: F Enroute Controller: INDIO : 1980 Requested By: CHANO LITTLEJOHN Order Number: [id number] Reading MD: Hugo Hoyt Measurements Intervals [place] Rate: 91 P: -1 FL: 179 QRS: 13 QRSD: 77 T: 30 QT: 380 QTc: 468 Interpretive Statements SINUS RHYTHM LOW QRS VOLTAGE IN PRECORDIAL LEADS [QRS DEFLECTION < 1.0 mV IN CHESTLEADS] ANTEROSEPTAL MYOCARDIAL INFARCTION , OF INDETERMINATE AGE [40+ ms Q WAVEIN V1-V4] us Generic Conversion Md [facility] ECG ORDERABLES Final R esult [facility] documented in this encounter Visit Diagnoses Diagnosis Headache documented in this encounter Care Teams Food Trades Assistants Relationship Specialty Start Date End Date Hermes Ramirez III, MD [address] [facility] [address] [place] [address] PCP - General FAMILY PRACTICE 06/20/17 documented as of this encounter
--- OUTSIDE RECORDS SUMMARY | 2024-03-20 16:50 | XMS_ITS | Encounter Summary ---
Author Organization [facility] Address [address] [place] [address]. [place], [place] [address] [place] [address] Care Team Providers Care Physician Extender Name Role Phone Ashley ZUNIGA MD, Hermes Perez Primary Care Provid er Encounter Details Date Type Department Care Team (Latest Contact Info) Description 01/09/2016 Abstract [facility] Social History Tobacco Use Types Packs/Day Years Used Date Smoking Tobacco: Never Assessed Comments Unknown Sex and Gender Information Value Date Recorded Sex Assigned at Not on file Legal Sex Female 9:15 PM MANAGER ENGLISH Gender Identity Not on file Sexual Orientation Not on file documented as of this encounter Plan of Treatment Not on file documented as of this encounter Visit Diagnoses Not on filedocumented in this encounter Care Teams Physician Extender Relationship Specialty Start Date End Date Hermes Ramirez III, MD [address] [facility] [address] [place] [address] PCP - General FAMILY PRACTICE 06/20/17 documented as of this encounter
--- OUTSIDE RECORDS SUMMARY | 2024-03-20 16:51 | XMS_ITS | Encounter Summary ---
Author Organization [facility] Address [address] [place] [address]. [place], [place] [address] [place] [address] Care Team Providers Care Vp Strategy Name Role Phone Ashley ZUNIGA MD, Hermes Perez Primary Care Provid er Encounter Details Date Type Department Care Team (Latest Contact Info) Description 01/29/2015 Abstract [facility] Social History Tobacco Use Types Packs/Day Years Used Date Smoking Tobacco: Never Assessed Comments Unknown Sex and Gender Information Value Date Recorded Sex Assigned at Not on file Legal Sex Female 9:15 PM DIRECTOR OF PATIENT SAFETY Gender Identity Not on file Sexual Orientation Not on file documented as of this encounter Plan of Treatment Not on file documented as of this encounter Visit Diagnoses Not on filedocumented in this encounter Care Teams Vp Strategy Relationship Specialty Start Date End Date Hermes Ramirez III, MD [address] [facility] [address] [place] [address] PCP - General FAMILY PRACTICE 06/20/17 documented as of this encounter
--- OUTSIDE RECORDS SUMMARY | 2024-03-20 16:51 | XMS_ITS | Encounter Summary ---
Author Organization [facility] Address [address] [place] [address]. 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
--- OUTSIDE RECORDS SUMMARY | 2024-03-20 16:51 | XMS_ITS | Encounter Summary ---
Author Organization [facility] Address [address] [place] [address]. [place], [place] [address] [place] [address] Care Team Providers Care Manager Baby Name Role Phone Unavailable Primary Care Provider Unavailabl e Encounter Details Date Type Department Care Team (Late st Contact Info) Description 01/28/2015 Emergency [facility] Emergency [address] [place] [address] Say Posada MD [address] [place] [id number] Social History Tobacco Use Types Packs/Day Years Used Date Smoking Tobacco: Never Assessed Comments Unknown Sex and Gender Information Value Date Recorded Sex Assigned at Not on file Legal Sex Female 9:15 PM BUILDING OFFICIAL Gender Identity Not on file Sexual Orientation Not on file documented as of this encounter Plan of Treatment Not on file documented as of this encounter Visit Diagnoses Diagnosis Sprain of ligament of left ankle Sprain of ankle, unspecified site documented in this encounter
--- OUTSIDE RECORDS SUMMARY | 2024-03-20 16:51 | XMS_ITS | Encounter Summary ---
Author Organization [facility] Address [address] [place] [address]. [place], [place] [address] [place] [address] Care Team Providers Care Medical Assisting Instructor Name Role Phone Ashley ZUNIGA MD, Hermes Perez Primary Care Provid er Encounter Details Date Type Department Care Team (Latest Contact Info) Description 04/22/2015 Abstract [facility] Lazara Case MD Social History Tobacco Use Types Packs/Day Years Used Date Smoking Tobacco: Never Assessed Comments Unknown Sex and Gender Information Value Date Recorded Sex Assigned at Not on file Legal Sex Female 9:15 PM EVENT MARKETING INTERN Gender Identity Not on file Sexual Orientation Not on file documented as of this encounter Last Filed Vital Signs Vital Sign Reading Time Taken Comments Blood Pressure 112/70 04/22/2015 11:22 AM EVENT MARKETING INTERN Pulse 88 04/22/2015 11:22 AM EVENT MARKETING INTERN Temperature - - Respiratory Rate - - Oxygen Saturation - - Inhaled Oxygen Concentration - - Weight 73.5 kg (162 lb) 04/22/2015 11:22 AM EVENT MARKETING INTERN Height 157.5 cm (5' 2 ) 04/22/2015 11:22 AM EVENT MARKETING INTERN Body Mass Index 29.63 04/22/2015 11:22 AM EVENT MARKETING INTERN documented in this encounter Plan of Treatment Not on file documented as of this encounter Visit Diagnoses Not on filedocumented in this encounter Care Teams Medical Assisting Instructor Relationship Specialty Start Date End Date Hermes Ramirez III, MD [address] [facility] [address] [place] [address] PCP - General FAMILY PRACTICE 06/20/17 documented as of this encounter
--- OUTSIDE RECORDS SUMMARY | 2024-03-20 16:51 | XMS_ITS | Encounter Summary ---
Author Organization [facility] Address [address] [place] [address]. [place], [place] [address] [place] [address] Care Team Providers Care Linting Machine Operator Name Role Phone Ashley ZUNIGA MD, Hermes Perez Primary Care [facility] er Encounter Details Date Type Department Care Team (Latest Contact Info) Description 07/23/2013 Abstract [facility] Medical Group , Lazara Lange MD Social History Tobacco Use Types Packs/Day Years Used Date Smoking Tobacco: Never Assessed Comments Unknown Sex and Gender Information Value Date Recorded Sex Assigned at Not on file Legal Sex Female 9:15 PM HACKSAW INSPECTOR Gender Identity Not on file Sexual [...] Patient Name: RENETTA, MISHA A. Specimen #: [id number] ?? Procedure Date: 07/23/2013 /Age: 07 1980 (Age: 32) Gender: ??F Accessioned: 07/24/2013 Address: [address] [place] [address] ??[address] Reported: 07/25/2013 ?? Encounter: [id number] Location: [facility] ?? Physician(s): Jayla ESCAMILLA ?SURGICAL PATHOLOGY [...] specimen is submitted in one cassette. ?? /[facility] MAYITO Calderón (ASCP) ?? Microscopic Examination: (EXAMINED) 07/23/2013 12:3 3 PM CDT Narrative [facility] TO [facility] CONVERSION - 07/23/2013 12:33 PM CDT [...] on filedocumented in this encounter Care Teams Linting Machine Operator Relationship Specialty Start Date End Date Hermes Ramirez III, MD [address] [id number] PCP - General FAMILY PRACTICE 06/20/17 documented as of this encounter
--- OUTSIDE RECORDS SUMMARY | 2024-03-20 16:51 | XMS_ITS | Encounter Summary ---
Author Organization [facility] Address [address] [place] [address]. [place] [address] [place] [address] Care Team Providers Care Hot Box Checker Name Role Phone Unavailable Primary Care Provider Unavailabl e Encounter Details Date Type Department Care Team (Late st Contact Info) Description 10/02/2013 Abstract [facility] [address] [place] [address] Rachid Le MD [address] [facility] [address] [place] [address] Social History Tobacco Use Types Packs/Day Years Used Date Smoking Tobacco: Never Assessed Comments Unknown Sex and Gender Information Value Date Recorded Sex Assigned at Not on file Legal Sex Female 9:15 PM PRESS HAND SUPERVISOR Gender Identity Not on file Sexual Orientation Not on file documented as of this encounter Plan of Treatment Not on file documented as of this encounter Visit Diagnoses Diagnosis Moderate dysplasia of cervix (IFEANYI II) Moderate dysplasia of cervix documented in this encounter
--- OUTSIDE RECORDS SUMMARY | 2024-03-20 16:51 | XMS_ITS | Encounter Summary ---
Author Organization [facility] Address [address] [place] [address]. [place], [place] [address] [place] [address] Care Team Providers Care Title Inspector Name Role Phone Ashley ZUINGA MD, Hermes Perez Primary Care [facility] er Encounter Details Date Type Department Care Team (Latest Contact Info) Description 04/15/2015 Abstract [facility] Medical Group , Lazara Lange MD Social History Tobacco Use Types Packs/Day Years Used Date Smoking Tobacco: Never Assessed Comments Unknown Sex and Gender Information Value Date Recorded Sex Assigned at Not on file Legal Sex Female 9:15 PM TALENT ACQUISITION RELATIONSHIP MANAGER Gender Identity Not on file Sexual Orientation Not on file documented as of this encounter Last Filed Vital Signs Vital Sign Reading Time Taken Comments Blood Pressure 130/80 04/15/2015 3:37 PM TALENT ACQUISITION RELATIONSHIP MANAGER Pulse 88 04/15/2015 3:37 PM TALENT ACQUISITION RELATIONSHIP MANAGER Temperature - - Respiratory Rate - - Oxygen Saturation - - Inhaled Oxygen Concentration - - Weight 74.4 kg (164 lb) 04/15/2015 3:37 PM TALENT ACQUISITION RELATIONSHIP MANAGER Height 157.5 cm (5' 2 ) 04/15/2015 2:26 PM TALENT ACQUISITION RELATIONSHIP MANAGER Body Mass Index 30 04/15/2015 2:26 PM TALENT ACQUISITION RELATIONSHIP MANAGER documented in this encounter Plan of Treatment Not on file documented as of this encounter Procedures Procedure Name Priority Date/Time Associated Diagnosis Comments PATHOLOGY Routine 04/15/2015 5:16 PM TALENT ACQUISITION RELATIONSHIP MANAGER documented in this encounter Results * Pathology (04/15/2015 5:16 PM TALENT ACQUISITION RELATIONSHIP MANAGER) PATHOLOGY [facility] T O EPIC CONVERSION Comment: Patient Name: RENETTA MISHA A. Specimen #: [id number] ?? Procedure Date: 04/15/2015 /Age: 7 1980 (Age: 34) Gender: ??F Accessioned: 04/16/2015 Address: [address] ??[id number] Reported: 04/17/2015 ?? Encounter: [id number] Location: [facility] ?? Physician(s): MARIA ISABEL JENNINGS [...] ?? Microscopic Examination: (EXAMINED) 04/15/2015 5:16 PM TALENT ACQUISITION RELATIONSHIP MANAGER Narrative [facility] TO EPIC CONVERSION - 04/15/2015 5:16 PM TALENT ACQUISITION RELATIONSHIP MANAGER [Task Forwarded to [facility]] sched. appt. with Vishnu us Maria Isabel Jennings MD PATHOLOGY/CYTOLOGY ORDERAB LES Final Result [facility] TO EPIC CONVERSION documented in this encounter Visit Diagnoses Not on filedocumented in this encounter Care Teams Title Inspector Relationship Specialty Start Date End Date Hermes Ramirez III, MD [address] [address] PCP - General FAMILY PRACTICE 06/20/17 documented as of this encounter
--- OUTSIDE RECORDS SUMMARY | 2024-03-20 16:51 | XMS_ITS | Encounter Summary ---
Author Organization [facility] Address [address] [place] [address]. [place], [place] [address] [place] [address] Care Team Providers Care Marine Insulator Name Role Phone Unavailable Primary Care Provider Unavailabl e Encounter Details Date Type Department Care Team (Late st Contact Info) Description 08/18/2014 Emergency [facility] Emergency [address] [place] [address] Danish Menjivar MD [address] [place] [address] Social History Tobacco Use Types Packs/Day Years Used Date Smoking Tobacco: Never Assessed Comments Unknown Sex and Gender Information Value Date Recorded Sex Assigned at Not on file Legal Sex Female 9:15 PM CAR WHACKER Gender Identity Not on file Sexual Orientation Not on file documented as of this encounter Plan of Treatment Not on file documented as of this encounter Visit Diagnoses Diagnosis Disorder of kidney and ureter Unspecified disorder of kidney and ureter documented in this encounter
--- OUTSIDE RECORDS SUMMARY | 2024-03-20 16:51 | XMS_ITS | Encounter Summary ---
Author Organization [facility] Address [address] [place] [address]. [place], [place] [address] [place] [address] Care Team Providers Care Training Project Manager Name Role Phone Ashley ZUNIGA MD, Hermes Perez Primary Care Provid er Encounter Details Date Type Department Care Team (Latest Contact Info) Description 04/03/2015 Abstract [facility] Medical Group Lazara Case MD Social History Tobacco Use Types Packs/Day Years Used Date Smoking Tobacco: Never Assessed Comments Unknown Sex and Gender Information Value Date Recorded Sex Assigned at Not on file Legal Sex Female 9:15 PM DESIZING MACHINE BACK TENDER Gender Identity Not on file Sexual Orientation Not on file documented as of this encounter Last Filed Vital Signs Vital Sign Reading Time Taken Comments Blood Pressure 128/80 04/03/2015 3:35 PM DESIZING MACHINE BACK TENDER Pulse 80 04/03/2015 3:35 PM DESIZING MACHINE BACK TENDER Temperature - - Respiratory Rate - - Oxygen Saturation - - Inhaled Oxygen Concentration - - Weight 74.4 kg (164 lb) 04/03/2015 3:35 PM DESIZING MACHINE BACK TENDER Height 157.5 cm (5' 2 ) 04/03/2015 3:35 PM DESIZING MACHINE BACK TENDER Body Mass Index 30 04/03/2015 3:35 PM DESIZING MACHINE BACK TENDER documented in this encounter Plan of Treatment Not on file documented as of this encounter Procedures Procedure Name Priority Date/Time Associated Diagnosis Comments THINPREP IMAGING SYSTEM PAP Routine 04/03/2015 10:30 AM DESIZING MACHINE BACK TENDER documented in this encounter Results * (ABNORMAL) THINPREP IMAGING SYSTEM PAP (04/03/2015 10:30 AM DESIZING MACHINE BACK TENDER) THIN PREP PAP (A) [facility] UP TO EPIC CONVERSION Comment: Patient Name: MISHA JACKSON Specimen #: [id number] ?? Procedure Date: 04/03/2015 /Age: 7 1980 (Age: 34) Gender: ??F Accessioned: 04/07/2015 Address: [address] [place], [place] ??[address] Reported: 04/08/2015 ?? Encounter: [id number] Location: [facility] ?? Physician(s): MARIA ISABEL JENNINGS MD ?? : ? CYTOPATHOLOGY - GYNECOLOGIC REPORT Diagnosis: TEST NAME: ??THINPREP PAP WITH PAYMENT POSTER, REFLEX HPV-ASCUS ONLY INTERPRETATION/RESULT: EPITHELIAL CELL ABNORMALITY: LOW-GRADE SQUAMOUS INTRAEPITHELIAL LESION. ?? STATEMENT OF ADEQUACY: SATISFACTORY FOR EVALUATION; ENDOCERVICAL/TRANSFORMATION ZONE COMPONENT PRESENT. ?? CHONG ADLER MD ssd/04/08/2015 Report Electronically Signed ? Specimen: THINPREP PAP WITH PAYMENT POSTER, REFLEX HPV-ASCUS ONLY Clinical Diagnosis and History Date of Last Menstrual Period: ? . Specimen Source: Cervical ? PAP SMEARS ARE SCREENING TESTS SUBJECT TO BOTH FALSE NEGATIVE AND FALSE POSITIVE RESULTS EVIDENCED BY DATA PUBLISHED IN THE MEDICAL LITERATURE. YOUR PATIENT'S RESULT SHOULD BE INTERPRETED IN THIS CONTEXT, TOGETHER WITH THE PATIENT'S HISTORY AND CLINICAL FINDINGS. 04/03/2015 10:3 0 AM DESIZING MACHINE BACK TENDER Narrative [facility] TO EPIC CONVERSION - 04/03/2015 10:30 AM DESIZING MACHINE BACK TENDER [Task Forwarded to [facility]] notify and sched. colpo with [place] us Maria Isabel Jennings MD PATHOLOGY/CYTOLOGY ORDERAB LES Final Result [facility] TO EPIC CONVERSION documented in this encounter Visit Diagnoses Not on filedocumented in this encounter Care Teams Training Project Manager Relationship Specialty Start Date End Date Hermes Ramirez III, MD [address] [facility] [address] [place] [address] PCP - General FAMILY PRACTICE 06/20/17 documented as of this encounter
--- OUTSIDE RECORDS SUMMARY | 2024-03-20 16:52 | XMS_ITS | Encounter Summary ---
Author Organization [facility] Address [address] [place] [address]. [place], [place] [address] [place] [address] Care Team Providers Care Business Analyst Manager Name Role Phone Ashley ZUNIGA MD, Hermes Perez Primary Care Provid er Encounter Details Date Type Department Care Team (Late st Contact Info) Description 01/27/2005 Abstract [facility] [address] [place] [address] Kris Vazquez MD [facility] [place] [address] Social History Tobacco Use Types Packs/Day Years Used Date Smoking Tobacco: Never Assessed Comments Unknown Sex and Gender Information Value Date Recorded Sex Assigned at Not on file Legal Sex Female 9:15 PM SCIENCE FACULTY 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
--- OUTSIDE RECORDS SUMMARY | 2024-03-20 16:52 | XMS_ITS | Encounter Summary ---
Author Organization [facility] Address [address] [place] [address]. 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 Specimen #: [id number] ?? Procedure Date: 06/27/2013 /Age: 07 1980 (Age: 32) Gender: ??F Accessioned: 06/28/2013 Address: [address] [place] [address] ??[address] Reported: 06/28/2013 ?? Encounter: [id number] Location: [facility] ?? Physician(s): MARIA ISABEL JENNINGS MD ?SURGICAL [...] of white-valadez tissue. ??All in one cassette. /[facility] MAYITO Hercules (ASCP) ?? Microscopic Examination: (EXAMINED) 06/27/2013 5:33 PM CDT Narrative [facility] TO EPIC CONVERSION - 06/27/2013 5:33 PM CDT [Task Forwarded to [facility]] sched. brief check us Maria Isabel Jennings MD PATHOLOGY/CYTOLOGY ORDERAB LES Final Result [facility] TO EPIC CONVERSION documented in this encounter Visit Diagnoses Not on filedocumented in this encounter Care Teams Direct Response Consultant Relationship Specialty Start Date End Date Hermes Ramirez III, MD [address] [address] PCP - General FAMILY PRACTICE 06/20/17 documented as of this encounter
--- OUTSIDE RECORDS SUMMARY | 2024-03-20 16:52 | XMS_ITS | Encounter Summary ---
Author Organization [facility] Address [address] [place] [address]. [place] [address] [place] [address] Care Team Providers Care Bee Raiser Name Role Phone Ashley ZUNIGA MD, Hermes Perez Primary Care Provid er Encounter Details Date Type Department Care Team (Late st Contact Info) Description 07/02/2009 Abstract [facility] CON[facility] [address] [place] [address] , Generic ConversionMD Social History Tobacco Use Types Packs/Day Years Used Date Smoking Tobacco: Never Assessed Comments Unknown Sex and Gender Information Value Date Recorded Sex Assigned at Not on file Legal Sex Female 9:15 PM PHOTOGRAPHIC PRESS SCREWMAKER Gender Identity Not on file Sexual Orientation [...] Rule Out 03/30/2020 03/30/2020 03/30/2020 9:29 PM PHOTOGRAPHIC PRESS SCREWMAKER COVID-19 Rule Out 03/30/2020 03/30/2020 03/31/2020 12:28 PM PHOTOGRAPHIC PRESS SCREWMAKER documented as of this encounter Care Teams Bee Raiser Relationship Specialty Start Date End Date Hermes Ramirez III, MD [address] [place] [address] [place] [address] PCP - General FAMILY PRACTICE 06/20/17 documented as of this encounter
--- OUTSIDE RECORDS SUMMARY | 2024-03-20 16:52 | XMS_ITS | Encounter Summary ---
Author Organization [facility] Address [address] [place] [address]. 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
--- OUTSIDE RECORDS SUMMARY | 2024-03-20 16:52 | XMS_ITS | Encounter Summary ---
Author Organization [facility] Address [address] [place] [address]. 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
--- OUTSIDE RECORDS SUMMARY | 2024-03-20 16:52 | XMS_ITS | Encounter Summary ---
Author Organization [facility] Address [address] [place] [address]. [place], [place] [address] [place] [address] Care Team Providers Care Valve Inspector Name Role Phone Ashley ZUNIGA MD, Hermes Perez Primary Care Provid er Encounter Details Date Type Department Care Team (Late st Contact Info) Description 05/04/2005 Abstract [facility] [address] [place] [address] Ned Alonzo MD [address] [place] [address] Social History Tobacco Use Types Packs/Day Years Used Date Smoking Tobacco: Never Assessed Comments Unknown Sex and Gender Information Value Date Recorded Sex Assigned at Not on file Legal Sex Female 9:15 PM TRIMMING MACHINE OPERATOR Gender Identity Not on file [...] Rule Out 03/30/2020 03/30/2020 03/30/2020 9:29 PM TRIMMING MACHINE OPERATOR COVID-19 Rule Out 03/30/2020 03/30/2020 03/31/2020 12:28 PM TRIMMING MACHINE OPERATOR documented as of this encounter Care Teams Valve Inspector Relationship Specialty Start Date End Date Hermes Ramirez III, MD [address] [facility] [address] [place] [address] PCP - General FAMILY PRACTICE 06/20/17 documented as of this encounter
--- OUTSIDE RECORDS SUMMARY | 2024-03-20 16:52 | XMS_ITS | Encounter Summary ---
Author Organization [facility] Address [address] [place] [address]. [place] [address] [place] [address] Care Team Providers Care Director Erp Name Role Phone Ashley ZUNIGA MD, Hermes Perez Primary Care Provid er Encounter Details Date Type Department Care Team (Latest Contact Info) Description 11/13/2010 Abstract [facility] Medical Group Joshua Huang MD [address] [facility] [place] [address] Social History Tobacco Use Types Packs/Day Years Used Date Smoking Tobacco: Never Assessed Comments Unknown Sex and Gender Information Value Date Recorded Sex Assigned at Not on file Legal Sex Female 9:15 PM RADIOLOGY RESIDENT Gender Identity Not on file Sexual Orientation [...] 1. Aspirin TABS 2. Erythromycin Derivatives Vitals [id number] 10:20AM Temperature 98.5 F Heart Rate 88 [...] Joshua Huang M.D.; Nov 13 2010 4:42PM OLOGY RESIDENT documented in this encounter Miscellaneous Notes * Letter - Generic Anisa Case MD - 11/13/2010 10:05 AM CDT To whom it may concern, Elsa Browne was seen in our office for an acute illness. She may returnto work on 11/14/2010 without restrictions. Electronically signed by:Linette Sanchez Nov 13 2010 10:26AM RADIOLOGY RESIDENT Author Electronically signed by:Linette Sanchez Nov 13 2010 10:47AM RADIOLOGY RESIDENT Co-author Electronically signed by:Joshua Huang M.D. Nov 13 2010 10:59AM RADIOLOGY RESIDENT OLOGY RESIDENT documented in this encounter Plan of Treatment Not on file documented as of this encounter Visit Diagnoses Not on filedocumented in this encounter Care Teams Director Erp Relationship Specialty Start Date End Date Hermes Ramirez III, MD [address] [address] PCP - General FAMILY PRACTICE 06/20/17 documented as of this encounter
--- OUTSIDE RECORDS SUMMARY | 2024-03-20 16:52 | XMS_ITS | Encounter Summary ---
Author Organization [facility] Address [address] [place] [address]. [place] [address] [place] [address] Care Team Providers Care Electrical Logger Name Role Phone Ashley ZUNIGA MD, Hermes Perez Primary Care Provid er Encounter Details Date Type Department Care Team (Late st Contact Info) Description 08/23/2000 Abstract [facility] [address] [place] [address] , Lazara Lange MD Social History Tobacco Use Types Packs/Day Years Used Date Smoking Tobacco: Never Assessed Comments Unknown Sex and Gender Information Value Date Recorded Sex Assigned at Not on file Legal Sex Female 9:15 PM AWNING ERECTOR Gender Identity Not on file Sexual Orientation [...] Rule Out 03/30/2020 03/30/2020 03/30/2020 9:29 PM AWNING ERECTOR COVID-19 Rule Out 03/30/2020 03/30/2020 03/31/2020 12:28 PM AWNING ERECTOR documented as of this encounter Care Teams Electrical Logger Relationship Specialty Start Date End Date Hermes Ramirez III, MD [address] [facility] [address] [place] [address] PCP - General FAMILY PRACTICE 06/20/17 documented as of this encounter
--- OUTSIDE RECORDS SUMMARY | 2024-03-20 16:52 | XMS_ITS | Encounter Summary ---
Author Organization [facility] Address [address] [place] [address]. [place] [address] [place] [address] Care Team Providers Care Supervisor Dyer Name Role Phone Ashley ZUNIGA MD, Hermes Perez Primary Care Provid er Encounter Details Date Type Department Care Team (Late st Contact Info) Description 10/17/2005 Abstract [facility] Diagnostic Imaging [address] [place] [address] Lazara Case MD Social History Tobacco Use Types Packs/Day Years Used Date Smoking Tobacco: Never Assessed Comments Unknown Sex and Gender Information Value Date Recorded Sex Assigned at Not on file Legal Sex Female 9:15 PM INFERTILITY NURSE Gender Identity Not on file Sexual [...] Rule Out 03/30/2020 03/30/2020 03/30/2020 9:29 PM INFERTILITY NURSE COVID-19 Rule Out 03/30/2020 03/30/2020 03/31/2020 12:28 PM INFERTILITY NURSE documented as of this encounter Care Teams Supervisor Dyer Relationship Specialty Start Date End Date Hermes Ramirez III, MD [address] [facility] [address] [place] [address] PCP - General FAMILY PRACTICE 06/20/17 documented as of this encounter
--- OUTSIDE RECORDS SUMMARY | 2024-03-20 16:52 | XMS_ITS | Encounter Summary ---
Author Organization [facility] Address [address] [place] [address]. 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
--- OUTSIDE RECORDS SUMMARY | 2024-03-20 16:52 | XMS_ITS | Encounter Summary ---
Author Organization [facility] Address [address] [place] [address]. [place], [place] [address] [place] [address] Care Team Providers Care Supervisor Drying Name Role Phone Ashley ZUNIGA MD, Hermes Perez Primary Care Provid er Encounter Details Date Type Department Care Team (Late st Contact Info) Description 10/09/2005 Abstract [facility] [address] [place] [address] Felicia Roach MD [address] [place] [address] Social History Tobacco Use Types Packs/Day Years Used Date Smoking Tobacco: Never Assessed Comments Unknown Sex and Gender Information Value Date Recorded Sex Assigned at Not on file Legal Sex Female 9:15 PM CLAIMS SERVICE REPRESENTATIVE Gender Identity Not on file Sexual [...] Rule Out 03/30/2020 03/30/2020 03/30/2020 9:29 PM CLAIMS SERVICE REPRESENTATIVE COVID-19 Rule Out 03/30/2020 03/30/2020 03/31/2020 12:28 PM CLAIMS SERVICE REPRESENTATIVE documented as of this encounter Care Teams Supervisor Drying Relationship Specialty Start Date End Date Hermes Ramirez III, MD [address] [address] PCP - General FAMILY PRACTICE 06/20/17 documented as of this encounter
--- OUTSIDE RECORDS SUMMARY | 2024-03-20 16:52 | XMS_ITS | Encounter Summary ---
Author Organization [facility] Address [address] [place] [address]. [place] [address] [place] [address] Care Team Providers Care Clinical Pharmacy Specialist Name Role Phone Ashley ZUNIGA MD, Hermes Perez Primary Care Provid er Encounter Details Date Type Department Care Team (Late st Contact Info) Description 05/27/2008 Abstract [facility] [address] [place] [address] , Lazara Lange MD Social History Tobacco Use Types Packs/Day Years Used Date Smoking Tobacco: Never Assessed Comments Unknown Sex and Gender Information Value Date Recorded Sex Assigned at Not on file Legal Sex Female 9:15 PM LICENSED MORTICIAN Gender Identity Not on file Sexual Orientation [...] Rule Out 03/30/2020 03/30/2020 03/30/2020 9:29 PM LICENSED MORTICIAN COVID-19 Rule Out 03/30/2020 03/30/2020 03/31/2020 12:28 PM LICENSED MORTICIAN documented as of this encounter Care Teams Clinical Pharmacy Specialist Relationship Specialty Start Date End Date Hermes Ramirez III, MD [address] [facility] [address] [place] [address] PCP - General FAMILY PRACTICE 06/20/17 documented as of this encounter
--- OUTSIDE RECORDS SUMMARY | 2024-03-20 16:52 | XMS_ITS | Encounter Summary ---
Author Organization [facility] Address [address] [place] [address]. [place], [place] [address] [place] [address] Care Team Providers Care Hot Top Liner Helper Name Role Phone Ashley ZUNIGA MD, Hermes Perez Primary Care Provid er Encounter Details Date Type Department Care Team (Latest Contact Info) Description 10/09/2010 Abstract [facility] Eusebia Diaz PA [address] [facility] [place] [address] Social History Tobacco Use Types Packs/Day Years Used Date Smoking Tobacco: Never Assessed Comments Unknown Sex and Gender Information Value Date Recorded Sex Assigned at Not on file Legal Sex Female 9:15 PM ARCHITECTURAL INTERN Gender Identity Not on file Sexual [...] 1 Aspirin TABS 2 Erythromycin Derivatives Vitals [id number] 04:49PM Temperature 98.7 F Heart Rate 84 [...] INJECT 2 ML Intravenous; Status: COMPLETE; Done: [id number] ?? Sodium Chloride 0.9 % Intravenous Solution; INFUSE 1000 ML Intravenous; Status: COMPLETE; Done: [id number] Headache (784.0) ?? Ketorolac Tromethamine 30 MG/ML Injection Solution; INJECT 1 ML Intravenous; Status: COMPLETE; Done: [id number] ?? Orphenadrine Citrate 30 MG/ML Injection Solution; INJECT 2 ML Intravenous; Status: COMPLETE; Done: [id number] H/a still present, but pt has migraines and states she has hydrocodone at home. Pt to push fluids tomorrow. Eat well and f/u with pcp. Signatures Electronically signed by : Eusebia Diaz PA-C; Oct 10 2010 7:06AM ITECTURAL INTERN documented in this encounter Miscellaneous Notes * Letter - MAYITO Flood - 10/09/2010 4:45 PM CDT To whom it may concern: Elsa was seen in office today, please excuse her. She may return to work on October 10, 2010. Thank you. Sincerely Eusebia Diaz PA-C/ Conrado JURADO Electronically signed by:Kirsten Dunaway Oct 09 2010 5:09PM ARCHITECTURAL INTERN Author Electronically signed by:Eusebia Diaz PA-C Oct 09 2010 5:48PM ARCHITECTURAL INTERN ITECTURAL INTERN documented in this encounter Plan of Treatment Not on file documented as of this encounter Visit Diagnoses Not on filedocumented in this encounter Care Teams Hot Top Liner Helper Relationship Specialty Start Date End Date Hermes Ramirez III, MD [address] [address] PCP - General FAMILY PRACTICE 06/20/17 documented as of this encounter
--- OUTSIDE RECORDS SUMMARY | 2024-03-20 16:52 | XMS_ITS | Encounter Summary ---
Author Organization [facility] Address [address] [place] [address]. [address] Care Team Providers Care Patient Transportation Driver Name Role Phone Ashley ZUNIGA MD, Hermes Perez Primary Care Provid er Encounter Details Date Type Department Care Team (Latest Contact Info) Description 09/22/[address] [facility] Lenora Duncan, APNP [address] [address] Social History Tobacco Use Types Packs/Day Years Used Date Smoking Tobacco: Never Assessed Comments Unknown Sex and Gender Information Value Date Recorded Sex Assigned at Not on file Legal Sex Female 9:15 PM PLANT OPERATOR/SHIFT SUPERVISOR Gender Identity Not on file Sexual [...] Organization Address [facility] Co de Phone Number [employer] TO [...] Organization Address [facility] de Phone Number [employer] TO EPIC CONVERSION [...] on filedocumented in this encounter Care Teams Patient Transportation Driver Relationship Specialty Start Date End Date Hermes Ramirez III, MD [address] [facility] [address] [place] [address] PCP - General FAMILY PRACTICE 06/20/17 documented as of this encounter
--- OUTSIDE RECORDS SUMMARY | 2024-03-20 16:52 | XMS_ITS | Encounter Summary ---
Author Organization [facility] Address [address] [place] [address]. [place] [address] [place] [address] Care Team Providers Care Paralegal Internship Name Role Phone Ashley ZUNIGA MD, Hermes Perez Primary Care Provid er Encounter Details Date Type Department Care Team (Late st Contact Info) Description 04/25/2001 Abstract [facility] [address] [place] [address] , Lazara Lange MD Social History Tobacco Use Types Packs/Day Years Used Date Smoking Tobacco: Never Assessed Comments Unknown Sex and Gender Information Value Date Recorded Sex Assigned at Not on file Legal Sex Female 9:15 PM EXECUTIVE ADMINISTRATIVE ASST Gender Identity Not on file Sexual Orientation [...] Rule Out 03/30/2020 03/30/2020 03/30/2020 9:29 PM EXECUTIVE ADMINISTRATIVE ASST COVID-19 Rule Out 03/30/2020 03/30/2020 03/31/2020 12:28 PM EXECUTIVE ADMINISTRATIVE ASST documented as of this encounter Care Teams Paralegal Internship Relationship Specialty Start Date End Date Hermes Ramirez III, MD [address] [facility] [address] [place] [address] PCP - General FAMILY PRACTICE 06/20/17 documented as of this encounter
--- OUTSIDE RECORDS SUMMARY | 2024-03-20 16:52 | XMS_ITS | Encounter Summary ---
Author Organization [facility] Address [address] [place] [address]. [place] [address] [place] [address] Care Team Providers Care Sales Supervisor Name Role Phone Ashley ZUNIGA MD, Hermes Perez Primary Care Provid er Encounter Details Date Type Department Care Team (Late st Contact Info) Description 05/18/2005 Abstract [facility] [address] [place] [address] , Lazara Lange MD Social History Tobacco Use Types Packs/Day Years Used Date Smoking Tobacco: Never Assessed Comments Unknown Sex and Gender Information Value Date Recorded Sex Assigned at Not on file Legal Sex Female 9:15 PM RN CLINICAL TRIALS Gender Identity Not on file Sexual Orientation [...] Rule Out 03/30/2020 03/30/2020 03/30/2020 9:29 PM RN CLINICAL TRIALS COVID-19 Rule Out 03/30/2020 03/30/2020 03/31/2020 12:28 PM RN CLINICAL TRIALS documented as of this encounter Care Teams Sales Supervisor Relationship Specialty Start Date End Date Hermes Ramirez III, MD [address] [facility] [address] [place] [address] PCP - General FAMILY PRACTICE 06/20/17 documented as of this encounter
--- OUTSIDE RECORDS SUMMARY | 2024-03-20 16:52 | XMS_ITS | Encounter Summary ---
Author Organization [facility] Address [address] [place] [address]. [place] [address] [place] [address] Care Team Providers Care Landfill Gas Collection Operator Name Role Phone Ashley ZUNIGA MD, Hermes Perez Primary Care Provid er Encounter Details Date Type Department Care Team (Late st Contact Info) Description 06/02/2011 Abstract [facility] [address] [place] [address] Neptali Moreira MD [address] [place] [phone] Social History Tobacco Use Types Packs/Day Years Used Date Smoking Tobacco: Never Assessed Comments Unknown Sex and Gender Information Value Date Recorded Sex Assigned at Not on file Legal Sex Female 9:15 PM BROADCAST TRANSMITTER OPERATOR Gender Identity Not on file Sexual Orientation Not on file documented as of this encounter Plan of Treatment Not on file documented as of this encounter Visit Diagnoses Diagnosis Fever due to unspecified condition documented in this encounter Care Teams Landfill Gas Collection Operator Relationship Specialty Start Date End Date Hermes Ramirez III, MD [address] [facility] [address] [place] [address] PCP - General FAMILY PRACTICE 06/20/17 documented as of this encounter
--- OUTSIDE RECORDS SUMMARY | 2024-03-20 16:52 | XMS_ITS | Encounter Summary ---
Author Organization [facility] Address [address] [place] [address]. [place] [address] [place] [address] Care Team Providers Care Cross Country Coach Name Role Phone Ashley ZUNIGA MD, Hermes Perez Primary Care Provid er Encounter Details Date Type Department Care Team (Latest Contact Info) Description 07/21/2010 Abstract [facility] Neil De La Cruz MD [address] [place] [address] Social History Tobacco Use Types Packs/Day Years Used Date Smoking Tobacco: Never Assessed Comments Unknown Sex and Gender Information Value Date Recorded Sex Assigned at Not on file Legal Sex Female 9:15 PM CASING BLOWER Gender Identity Not on file Sexual [...] encounter Progress Notes * Neil De La Crzu MD - 07/21/2010 9:00 AM CDT Chief [...] La Cruz M.D.; Jul 21 2010 9:54AM NG BLOWER documented in this encounter Plan of Treatment Not on file documented as of this encounter Visit Diagnoses Not on filedocumented in this encounter Care Teams Cross Country Coach Relationship Specialty Start Date End Date Hermes Ramirez III, MD [address] [place] [address] PCP - General FAMILY PRACTICE 06/20/17 documented as of this encounter
--- OUTSIDE RECORDS SUMMARY | 2024-03-20 16:52 | XMS_ITS | Encounter Summary ---
Author Organization [facility] Address [address] [place] [address]. [place], [place] [address] [place] [address] Care Team Providers Care Director Of Music Therapy Name Role Phone Ashley ZUNIGA MD, Hermes Perez Primary Care Provid er Encounter Details Date Type Department Care Team (Latest Contact Info) Description 11/20/2010 Abstract [facility] Social History Tobacco Use Types Packs/Day Years Used Date Smoking Tobacco: Never Assessed Comments Unknown Sex and Gender Information Value Date Recorded Sex Assigned at Not on file Legal Sex Female 9:15 PM RESOURCE MANAGEMENT SPECIALIST Gender Identity Not on file Sexual Orientation Not on file documented as of this encounter Plan of Treatment Not on file documented as of this encounter Visit Diagnoses Not on filedocumented in this encounter Care Teams Director Of Music Therapy Relationship Specialty Start Date End Date Hermes Ramirez III, MD [address] [facility] [address] [place] [address] PCP - General FAMILY PRACTICE 06/20/17 documented as of this encounter
--- OUTSIDE RECORDS SUMMARY | 2024-03-20 16:52 | XMS_ITS | Encounter Summary ---
Author Organization [facility] Address [address] [place] [address]. [place], [place] [address] [place] [address] Care Team Providers Care Band Bias Machine Operator Name Role Phone Unavailable Primary Care Provider Unavailabl e Encounter Details Date Type Department Care Team (Late st Contact Info) Description 04/05/2001 Abstract [facility] [address] [facility] [place] [address] , Lazara Lange MD Social History Tobacco Use Types Packs/Day Years Used Date Smoking Tobacco: Never Assessed Comments Unknown Sex and Gender Information Value Date Recorded Sex Assigned at Not on file Legal Sex Female 9:15 PM FOUNDRY SUPERINTENDANT Gender Identity Not on file Sexual Orientation Not on file documented as of this encounter Plan of Treatment Not on file documented as of this encounter Visit Diagnoses Not on filedocumented in this encounter
--- OUTSIDE RECORDS SUMMARY | 2024-03-20 16:52 | XMS_ITS | Encounter Summary ---
Author Organization [facility] Address [address] [place] [address]. [place] [address] [place] [address] Care Team Providers Care Cylinder Inspector Name Role Phone Ashley ZUNIGA MD, Hermes Perez Primary Care Provid er Encounter Details Date Type Department Care Team (Late st Contact Info) Description 06/11/2003 Abstract [facility] [address] [place] [address] , Generic ConversionMD Social History Tobacco Use Types Packs/Day Years Used Date Smoking Tobacco: Never Assessed Comments Unknown Sex and Gender Information Value Date Recorded Sex Assigned at Not on file Legal Sex Female 9:15 PM AUDIO/VIDEO ENGINEER Gender Identity Not on file Sexual [...] Rule Out 03/30/2020 03/30/2020 03/30/2020 9:29 PM AUDIO/VIDEO ENGINEER COVID-19 Rule Out 03/30/2020 03/30/2020 03/31/2020 12:28 PM AUDIO/VIDEO ENGINEER documented as of this encounter Care Teams Cylinder Inspector Relationship Specialty Start Date End Date Hermes Ramirez III, MD [address] [place] [address] PCP - General FAMILY PRACTICE 06/20/17 documented as of this encounter
--- OUTSIDE RECORDS SUMMARY | 2024-03-20 16:52 | XMS_ITS | Encounter Summary ---
Author Organization [facility] Address [address] [place] [address]. [place] [address] [place] [address] Care Team Providers Care Lye Bath Operator Name Role Phone Ashley ZUNIGA MD, Hermes Perez Primary Care Provid er Encounter Details Date Type Department Care Team ([facility] st Contact Info) Description 02/02/[address] [facility] [address] [place] [address] , Lazara Lange MD Social History Tobacco Use Types Packs/Day Years Used Date Smoking Tobacco: Never Assessed Comments Unknown Sex and Gender Information Value Date Recorded Sex Assigned at Not on file Legal Sex Female 9:15 PM CALL CENTER RECRUITER Gender Identity Not on file Sexual [...] Rule Out 03/30/2020 03/30/2020 03/30/2020 9:29 PM CALL CENTER RECRUITER COVID-19 Rule Out 03/30/2020 03/30/2020 03/31/2020 12:28 PM CALL CENTER RECRUITER documented as of this encounter Care Teams Lye Bath Operator Relationship Specialty Start Date End Date Hermes Ramirez III, MD [address] [facility] [address] [place] [address] PCP - General FAMILY PRACTICE 06/20/17 documented as of this encounter
--- OUTSIDE RECORDS SUMMARY | 2024-03-20 16:52 | XMS_ITS | Encounter Summary ---
Author Organization [facility] Address [address] [place] [address]. [place], [place] [address] [place] [address] Care Team Providers Care Net Mender Name Role Phone Ashley ZUNIGA MD, Hermes Perez Primary Care [facility] er Encounter Details Date Type Department Care Team (Latest Contact Info) Description 06/21/2013 Abstract [facility] , Lazara Lange MD Social History Tobacco Use Types Packs/Day Years Used Date Smoking Tobacco: Never Assessed Comments Unknown Sex and Gender Information Value Date Recorded Sex Assigned at Not on file Legal Sex Female 9:15 PM SPLITTING MACHINE OPERATOR HELPER Gender Identity Not on file [...] Patient Name: RENETTA MISHA A. Specimen #: [id number] ?? Procedure Date: 06/21/2013 /Age: 07 1980 (Age: 32) Gender: ??F Accessioned: 06/22/2013 Address: [address] [place], [place] ??[address] Reported: 06/26/2013 ?? Encounter: [id number] Location: [facility] ?? Physician(s): MARIA ISABEL JENNINGS MD ?? : ? CYTOPATHOLOGY - GYNECOLOGIC REPORT Diagnosis: TEST NAME: ??THINPREP PAP WITH ONLINE ADVERTISING MANAGER,REFLEX HPV-ASCUS ONLY INTERPRETATION/RESULT: EPITHELIAL CELL ABNORMALITY: LOW-GRADE SQUAMOUS INTRAEPITHELIAL LESION. ?? STATEMENT OF ADEQUACY: SATISFACTORY FOR EVALUATION; ENDOCERVICAL/TRANSFORMATION ZONE COMPONENT PRESENT. ?? LJR CRISTHIAN MUNGUIA MD [facility]/06/26/2013 Report Electronically Signed ? Specimen: THINPREP PAP WITH ONLINE ADVERTISING MANAGER,REFLEX HPV-ASCUS ONLY Clinical Diagnosis and History Menstrual/ [...] 06/21/2013 11:37 AM CDT [Task Forwarded to [facility]] sched. colpo if not done within last yr. us Maria Isabel Jennings MD PATHOLOGY/CYTOLOGY ORDERAB LES Final Result [employer] TO EPIC CONVERSION documented in this encounter Visit Diagnoses Not on filedocumented in this encounter Care Teams Net Mender Relationship Specialty Start Date End Date Hermes Ramirez III, MD [address] [facility] [address] [place] [address] PCP - General FAMILY PRACTICE 06/20/17 documented as of this encounter
--- OUTSIDE RECORDS SUMMARY | 2024-03-20 16:52 | XMS_ITS | Encounter Summary ---
Author Organization [facility] Address [address] [place] [address]. [place] [address] [place] [address] Care Team Providers Care Manager Wealth Management Name Role Phone Ashley ZUNIGA MD, Hermes Perez Primary Care Provid er Encounter Details Date Type Department Care Team (Late st Contact Info) Description 03/10/2003 Abstract [facility] [address] [place] [address] , Generic ConversionMD Social History Tobacco Use Types Packs/Day Years Used Date Smoking Tobacco: Never Assessed Comments Unknown Sex and Gender Information Value Date Recorded Sex Assigned at Not on file Legal Sex Female 9:15 PM AFFILIATE MANAGER Gender Identity Not on file Sexual [...] Rule Out 03/30/2020 03/30/2020 03/30/2020 9:29 PM AFFILIATE MANAGER COVID-19 Rule Out 03/30/2020 03/30/2020 03/31/2020 12:28 PM AFFILIATE MANAGER documented as of this encounter Care Teams Manager Wealth Management Relationship Specialty Start Date End Date Hermes Ramirez III, MD [address] [place] [address] PCP - General FAMILY PRACTICE 06/20/17 documented as of this encounter
--- OUTSIDE RECORDS SUMMARY | 2024-03-20 16:52 | XMS_ITS | Encounter Summary ---
Author Organization [facility] Address [address] [place] [address]. [place] [address] [place] [address] Care Team Providers Care Copy Manager Name Role Phone Ashley ZUNIGA MD, Hermes Perez Primary Care Provid er Encounter Details Date Type Department Care Team (Late st Contact Info) Description 06/28/2000 Abstract [facility] [address] [place] [address] Lazara Case MD Social History Tobacco Use Types Packs/Day Years Used Date Smoking Tobacco: Never Assessed Comments Unknown Sex and Gender Information Value Date Recorded Sex Assigned at Not on file Legal Sex Female 9:15 PM TRANSPORTATION SUPERINTENDENT Gender Identity Not on file Sexual Orientation [...] Rule Out 03/30/2020 03/30/2020 03/30/2020 9:29 PM TRANSPORTATION SUPERINTENDENT COVID-19 Rule Out 03/30/2020 03/30/2020 03/31/2020 12:28 PM TRANSPORTATION SUPERINTENDENT documented as of this encounter Care Teams Copy Manager Relationship Specialty Start Date End Date Hermes Ramirez III, MD [address] [facility] [address] [place] [address] PCP - General FAMILY PRACTICE 06/20/17 documented as of this encounter
--- OUTSIDE RECORDS SUMMARY | 2024-03-20 16:52 | XMS_ITS | Encounter Summary ---
Author Organization [facility] Address [address] [place] [address]. [place] [address] [place] [address] Care Team Providers Care Home Energy Rater Name Role Phone Ashley ZUNIGA MD, Hermes Perez Primary Care Provid er Encounter Details Date Type Department Care Team (Latest Contact Info) Description 09/22/2010 Abstract [facility] Lenora Duncan, APNP [address] [place] [address] Social History Tobacco Use Types Packs/Day Years Used Date Smoking Tobacco: Never Assessed Comments Unknown Sex and Gender Information Value Date Recorded Sex Assigned at Not on file Legal Sex Female 9:15 PM CROSSTIE INSPECTOR Gender Identity Not on file Sexual [...] on filedocumented in this encounter Care Teams Home Energy Rater Relationship Specialty Start Date End Date Hermes Ramirez III, MD [address] [facility] [address] [place] [address] PCP - General FAMILY PRACTICE 06/20/17 documented as of this encounter
--- OUTSIDE RECORDS SUMMARY | 2024-03-20 16:52 | XMS_ITS | Encounter Summary ---
Author Organization [facility] Address [address] [place] [address]. [place] [address] [place] [address] Care Team Providers Care Fish Checker Name Role Phone Unavailable Primary Care Provider Unavailabl e Encounter Details Date Type Department Care Team (Late st Contact Info) Description 06/25/2010 Abstract [facility] [address] [place] [address] Social History Tobacco Use Types Packs/Day Years Used Date Smoking Tobacco: Never Assessed Comments Unknown Sex and Gender Information Value Date Recorded Sex Assigned at Not on file Legal Sex Female 9:15 PM MASCARA MOLDER Gender Identity Not on file Sexual Orientation Not on file documented as of this encounter Plan of Treatment Not on file documented as of this encounter Visit Diagnoses Diagnosis Chronic salpingitis and oophoritis documented in this encounter
--- OUTSIDE RECORDS SUMMARY | 2024-03-20 16:52 | XMS_ITS | Encounter Summary ---
Author Organization [facility] Address [facility] [place] [address] [place] [address] Care Team Providers Care Gravity Prospecting Observer Helper Name Role Phone Ashley ZUNIGA MD, Hermes Perez Primary Care Provid er Encounter Details Date Type Department Care Team (Late st Contact Info) Description 11/19/2010 Abstract [facility] Priority Care - Doreen Lopez [address] [place] [address] Terra Rodarte MD [address] [place] [address] Social History Tobacco Use Types Packs/Day Years Used Date Smoking Tobacco: Never Assessed Comments Unknown Sex and Gender Information Value Date Recorded Sex Assigned at Not on file Legal Sex Female 9:15 PM AUTOMOBILE SERVICE STATION ATTENDANT Gender Identity Not on file Sexual [...] Rider M.D.; Nov 19 2010 6:57PM (Author) MOBILE SERVICE STATION ATTENDANT documented in this encounter Plan of Treatment [...] on filedocumented in this encounter Care Teams Gravity Prospecting Observer Helper Relationship Specialty Start Date End Date Hermes Ramirez III, MD [address] [facility] [address] [place] [address] PCP - General FAMILY PRACTICE 06/20/17 documented as of this encounter
--- OUTSIDE RECORDS SUMMARY | 2024-03-20 16:52 | XMS_ITS | Encounter Summary ---
Author Organization [facility] Address [address] [place] [address]. [place] [address] [place] [address] Care Team Providers Care Poolroom Table Attendant Name Role Phone Ashley ZUNIGA MD, Hermes Perez Primary Care Provid er Encounter Details Date Type Department Care Team (Latest Contact Info) Description 09/22/2010 Abstract [facility] Lenora Duncan, APNP [address] [place] [address] Social History Tobacco Use Types Packs/Day Years Used Date Smoking Tobacco: Never Assessed Comments Unknown Sex and Gender Information Value Date Recorded Sex Assigned at Not on file Legal Sex Female 9:15 PM GOLD FRAME ASSEMBLER Gender Identity Not on file Sexual [...] on filedocumented in this encounter Care Teams Poolroom Table Attendant Relationship Specialty Start Date End Date Hermes Ramirez III, MD [address] [facility] [address] [place] [address] PCP - General FAMILY PRACTICE 06/20/17 documented as of this encounter
--- OUTSIDE RECORDS SUMMARY | 2024-03-20 16:52 | XMS_ITS | Encounter Summary ---
Author Organization [facility] Address [address] [place] [address]. [place] [address] [place] [address] Care Team Providers Care Quarter Inspector Name Role Phone Ashley ZUNIGA MD, Hermes Perez Primary Care Provid er Encounter Details Date Type Department Care Team (Late st Contact Info) Description 05/07/2003 Abstract [facility] [address] [place] [address] , Generic ConversionMD Social History Tobacco Use Types Packs/Day Years Used Date Smoking Tobacco: Never Assessed Comments Unknown Sex and Gender Information Value Date Recorded Sex Assigned at Not on file Legal Sex Female 9:15 PM CHUCK WAGON COOK Gender Identity Not on file Sexual Orientation [...] Rule Out 03/30/2020 03/30/2020 03/30/2020 9:29 PM CHUCK WAGON COOK COVID-19 Rule Out 03/30/2020 03/30/2020 03/31/2020 12:28 PM CHUCK WAGON COOK documented as of this encounter Care Teams Quarter Inspector Relationship Specialty Start Date End Date Hermes Ramirez III, MD [address] [place] [address] PCP - General FAMILY PRACTICE 06/20/17 documented as of this encounter
--- OUTSIDE RECORDS SUMMARY | 2024-03-20 16:52 | XMS_ITS | Encounter Summary ---
Author Organization [facility] Address [address] [place] [address]. [place], [place] [address] [place] [address] Care Team Providers Care Fourth Grade Teacher Name Role Phone Ashley ZUNIGA MD, Hermes Perez Primary Care Provid er Encounter Details Date Type Department Care Team (Latest Contact Info) Description 11/01/2010 Abstract [facility] Eusebia Diaz PA [address] [facility], [address]nd [place] [address] Social History Tobacco Use Types Packs/Day Years Used Date Smoking Tobacco: Never Assessed Comments Unknown Sex and Gender Information Value Date Recorded Sex Assigned at Not on file Legal Sex Female 9:15 PM INSOLE FILLER Gender Identity Not on file Sexual [...] 1 Aspirin TABS 2 Erythromycin Derivatives Vitals [id number] 05:36PM Temperature 98.6 F Heart Rate 100 [...] liquids a day. Status: Active Requested for: [id number] ?? Drinking cool liquids or sucking on frozen Popsicles may help ease your pain. Status: Active Requested for: [id number] ?? Eat only soft foods. Status: Active Requested for: [id number] ?? Good handwashing is one of the best ways to control the spread of germs. Status: Active Requested for: [id number] ?? To relieve mouth pain, mix equal portions of a liquid antacid and liquid Benadryl (diphenhydramine). Status: Active Requested for: [id number] Unlinked ?? Drink plenty of fluids. Status: Need Information - Billable Problem Requested for: [id number] ?? Eat only soft foods. Status: Need Information - Billable Problem Requested for: [id number] ?? Necon (28) TABS; Status: DISCONTINUED ?? Nystatin [id number] UNIT/ML Mouth/Throat Suspension; Swish and swallow 1 teaspoonful 4 times daily; Status: ACTIVE Pt careguide given. Pt advised to get Prevention oncology mouth wash. F/u with pcp accordingly. Signatures Electronically signed by : Eusebia Diaz PA-C; Nov 01 2010 6:00PM LE FILLER documented in this encounter Plan of Treatment Not on file documented as of this encounter Visit Diagnoses Not on filedocumented in this encounter Care Teams Fourth Grade Teacher Relationship Specialty Start Date End Date Hermes Ramirez III, MD [address] [place] [id number] PCP - General FAMILY PRACTICE 06/20/17 documented as of this encounter
--- OUTSIDE RECORDS SUMMARY | 2024-03-20 16:52 | XMS_ITS | Encounter Summary ---
Author Organization [facility] Address [address] [place] [address]. [place] [address] [place] [address] Care Team Providers Care Horologist Name Role Phone Ashley ZUNIGA MD, Hermes Perez Primary Care Provid er Encounter Details Date Type Department Care Team (Latest Contact Info) Description 05/29/2010 Abstract [facility] Joshua Huang MD [address] [facility] [place] [address] Social History Tobacco Use Types Packs/Day Years Used Date Smoking Tobacco: Never Assessed Comments Unknown Sex and Gender Information Value Date Recorded Sex Assigned at Not on file Legal Sex Female 9:15 PM CHIEF RELAY TESTER Gender Identity Not on file Sexual Orientation Not on file documented as of this encounter Last Filed Vital Signs Vital Sign Reading Time Taken Comments Blood Pressure 90/68 05/29/2010 1:11 PM CHIEF RELAY TESTER Pulse 80 05/29/2010 1:11 PM CHIEF RELAY TESTER Temperature - - Respiratory Rate - - Oxygen Saturation - - Inhaled Oxygen Concentration - - Weight 55.8 kg (123 lb) 05/29/2010 1:11 PM CHIEF RELAY TESTER Height 157.5 cm (5' 2 ) 05/29/2010 1:11 PM CHIEF RELAY TESTER Body Mass Index 22.5 05/29/2010 1:11 PM CHIEF RELAY TESTER documented in this encounter Progress Notes * [...] Intramuscular; Status: COMPLETE; Done: 29May2010 ?? Call [phone] if: The symptoms seem worse. Status: Active Requested for: 29May2010 ?? Call [phone] if: You become dizzy or lightheaded, especially [...] Joshua Huang M.D.; May 29 2010 3:10PM F RELAY TESTER documented in this encounter Miscellaneous Notes * Letter - Joshua Huang MD - 05/29/2010 1:05 PM CST Please excuse Elsa Browne from work on 05/29/10 due to illness. Joshua Huang M.D. Electronically signed by:Tabatha Murillo May 29 2010 1:52PM CHIEF RELAY TESTER Author Electronically signed by:Joshua Huang M.D. May 29 2010 3:09PM CHIEF RELAY TESTER F RELAY TESTER documented in this encounter Plan of Treatment Not on file documented as of this encounter Visit Diagnoses Not on filedocumented in this encounter Care Teams Horologist Relationship Specialty Start Date End Date Hermes Ramirez III, MD [address] [address] PCP - General FAMILY PRACTICE 06/20/17 documented as of this encounter
--- OUTSIDE RECORDS SUMMARY | 2024-03-20 16:52 | XMS_ITS | Encounter Summary ---
Author Organization [facility] Address [address] [place] [address]. [place] [address] [place] [address] Care Team Providers Care Evaluation Assistant Name Role Phone Ashley ZUNIGA MD, Hermes Perez Primary Care Provid er Encounter Details Date Type Department Care Team (Late st Contact Info) Description 08/09/2000 Abstract [facility] [address] [place] [address] , Lazara Lange MD Social History Tobacco Use Types Packs/Day Years Used Date Smoking Tobacco: Never Assessed Comments Unknown Sex and Gender Information Value Date Recorded Sex Assigned at Not on file Legal Sex Female 9:15 PM ENVELOPE SEALING MACHINE OPERATOR Gender Identity Not on file [...] Rule Out 03/30/2020 03/30/2020 03/30/2020 9:29 PM ENVELOPE SEALING MACHINE OPERATOR COVID-19 Rule Out 03/30/2020 03/30/2020 03/31/2020 12:28 PM ENVELOPE SEALING MACHINE OPERATOR documented as of this encounter Care Teams Evaluation Assistant Relationship Specialty Start Date End Date Hermes Ramirez III, MD [address] [facility] [address] [place] [address] PCP - General FAMILY PRACTICE 06/20/17 documented as of this encounter
--- OUTSIDE RECORDS SUMMARY | 2024-03-20 16:52 | XMS_ITS | Encounter Summary ---
Author Organization [facility] Address [address] [place] [address]. [place] [address] [place] [address] Care Team Providers Care Burnisher Name Role Phone Ashley ZUNIGA MD, Hermes Perez Primary Care Provid er Encounter Details Date Type Department Care Team (Late st Contact Info) Description 05/19/2010 Abstract [facility] Medical [facility] Priority Care - Doreen Lopez [address] [place] [address] Terra Rodarte MD [facility] [place] [address] Social History Tobacco Use Types Packs/Day Years Used Date Smoking Tobacco: Never Assessed Comments Unknown Sex and Gender Information Value Date Recorded Sex Assigned at Not on file Legal Sex Female 9:15 PM NUCLEAR FUEL PROCESSING TECHNICIAN Gender Identity Not on file Sexual Orientation Not on file documented as of this encounter Last Filed Vital Signs Vital Sign Reading Time Taken Comments Blood Pressure 130/82 05/19/2010 6:36 PM NUCLEAR FUEL PROCESSING TECHNICIAN Pulse 88 05/19/2010 6:36 PM NUCLEAR FUEL PROCESSING TECHNICIAN Temperature - - Respiratory Rate - - Oxygen Saturation - - Inhaled Oxygen Concentration - - Weight 55.8 kg (123 lb) 05/19/2010 6:36 PM NUCLEAR FUEL PROCESSING TECHNICIAN Height - - Body Mass Index - [...] Rider M.D.; May 19 2010 8:22PM (Author) EAR FUEL PROCESSING TECHNICIAN documented in this encounter Plan of Treatment Not on file documented as of this encounter Visit Diagnoses Not on filedocumented in this encounter Care Teams Burnisher Relationship Specialty Start Date End Date Hermes Ramirez III, MD [address] [place] [address] PCP - General FAMILY PRACTICE 06/20/17 documented as of this encounter
--- OUTSIDE RECORDS SUMMARY | 2024-03-20 16:52 | XMS_ITS | Encounter Summary ---
Author Organization [facility] Address [address] [place] [address]. [place] [address] [place] [address] Care Team Providers Care Nuclear Weapons Mechanical Specialist Name Role Phone Ashley ZUNIGA MD, Hermes Perez Primary Care Provid er Encounter Details Date Type Department Care Team (Latest Contact Info) Description 09/02/2010 Abstract [facility] Medical Group Joshua Huang MD [address] [facility] [place] [address] Social History Tobacco Use Types Packs/Day Years Used Date Smoking Tobacco: Never Assessed Comments Unknown Sex and Gender Information Value Date Recorded Sex Assigned at Not on file Legal Sex Female 9:15 PM CERTIFIED MEDICAL AIDE Gender Identity Not on file Sexual [...] Joshua Huang M.D.; Sep 02 2010 2:05PM IFIED MEDICAL AIDE documented in this encounter Plan of Treatment Not on file documented as of this encounter Visit Diagnoses Not on filedocumented in this encounter Care Teams Nuclear Weapons Mechanical Specialist Relationship Specialty Start Date End Date Hermes Ramirez III, MD [address] [address] PCP - General FAMILY PRACTICE 06/20/17 documented as of this encounter
--- OUTSIDE RECORDS SUMMARY | 2024-03-20 16:52 | XMS_ITS | Encounter Summary ---
Author Organization [facility] Address [address] [place] [address]. [place] [address] [place] [address] Care Team Providers Care Biological Chemist Name Role Phone Ashley ZUNIGA MD, Hermes Perez Primary Care Provid er Encounter Details Date Type Department Care Team (Late st Contact Info) Description 08/05/2000 Abstract [facility] [address] [place] [address] , Generic ConversionMD Social History [...] Rule Out 03/30/2020 03/30/2020 03/30/2020 9:29 PM INSPECTOR AND CLIPPER COVID-19 Rule Out 03/30/2020 03/30/2020 03/31/2020 12:28 PM INSPECTOR AND CLIPPER documented as of this encounter Care Teams Biological Chemist Relationship Specialty Start Date End Date Hermes Ramirez III, MD [address] [place] [address] PCP - General FAMILY PRACTICE 06/20/17 documented as of this encounter
--- OUTSIDE RECORDS SUMMARY | 2024-03-20 16:52 | XMS_ITS | Encounter Summary ---
Author Organization [facility] Address [address] [place] [address]. [place], [place] [address] [place] [address] Care Team Providers Care Piece Dye Worker Name Role Phone Ashley ZUNIGA MD, Hermes Perez Primary Care Provid er Encounter Details Date Type Department Care Team (Late st Contact Info) Description 10/02/2001 Abstract [facility] [address] [place] [address] Kris Vazquez MD [facility] [place] [address] Social History Tobacco Use Types Packs/Day Years Used Date Smoking Tobacco: Never Assessed Comments Unknown Sex and Gender Information Value Date Recorded Sex Assigned at Not on file Legal Sex Female 9:15 PM RECEIVING ASSOCIATE STORE Gender Identity Not on file Sexual Orientation [...] Rule Out 03/30/2020 03/30/2020 03/30/2020 9:29 PM RECEIVING ASSOCIATE STORE COVID-19 Rule Out 03/30/2020 03/30/2020 03/31/2020 12:28 PM RECEIVING ASSOCIATE STORE documented as of this encounter Care Teams Piece Dye Worker Relationship Specialty Start Date End Date Hermes Ramirez III, MD [address] [facility] [address] [place] [address] PCP - General FAMILY PRACTICE 06/20/17 documented as of this encounter
--- OUTSIDE RECORDS SUMMARY | 2024-03-20 16:52 | XMS_ITS | Encounter Summary ---
Author Organization [facility] Address [address] [place] [address]. [place] [address] [place] [address] Care Team Providers Care Food Sanitarian Name Role Phone Unavailable Primary Care Provider Unavailabl e Encounter Details Date Type Department Care Team (Late st Contact Info) Description 09/22/2010 Emergency [facility] Emergency [address] [place] [address] Lenora Duncan, APNP [address] [place] [address] Social History Tobacco Use Types Packs/Day Years Used Date Smoking Tobacco: Never Assessed Comments Unknown Sex and Gender Information Value Date Recorded Sex Assigned at Not on file Legal Sex Female 9:15 PM DATABASE SECURITY ADMINISTRATOR Gender Identity Not on file Sexual Orientation Not on file documented as of this encounter Plan of Treatment Not on file documented as of this encounter Visit Diagnoses Diagnosis Abdominal pain Abdominal pain, unspecified site documented in this encounter
--- OUTSIDE RECORDS SUMMARY | 2024-03-20 16:52 | XMS_ITS | Encounter Summary ---
Author Organization [facility] Address [address] [place] [address]. [place] [address] [place] [address] Care Team Providers Care Retail Planning Manager Name Role Phone Ashley ZUNIGA MD, Hermes Perez Primary Care Provid er Encounter Details Date Type Department Care Team (Late st Contact Info) Description 07/10/2000 Abstract [facility] [address] [place] [address] , Lazara Lange MD Social History Tobacco Use Types Packs/Day Years Used Date Smoking Tobacco: Never Assessed Comments Unknown Sex and Gender Information Value Date Recorded Sex Assigned at Not on file Legal Sex Female 9:15 PM DIRECTOR VOLUNTEER SERVICES Gender Identity Not on file Sexual [...] Rule Out 03/30/2020 03/30/2020 03/30/2020 9:29 PM DIRECTOR VOLUNTEER SERVICES COVID-19 Rule Out 03/30/2020 03/30/2020 03/31/2020 12:28 PM DIRECTOR VOLUNTEER SERVICES documented as of this encounter Care Teams Retail Planning Manager Relationship Specialty Start Date End Date Hermes Ramirez III, MD [address] [facility] [address] [place] [address] PCP - General FAMILY PRACTICE 06/20/17 documented as of this encounter
--- OUTSIDE RECORDS SUMMARY | 2024-03-20 16:52 | XMS_ITS | Encounter Summary ---
Author Organization [facility] Address [address] [place] [address]. [place] [address] [place] [address] Care Team Providers Care Residential Collections Name Role Phone Ashley ZUNIGA MD, Hermes Perez Primary Care Provid er Encounter Details Date Type Department Care Team (Late st Contact Info) Description 09/22/2000 Abstract [facility] [address] [place] [address] , Lazara Lange MD Social History Tobacco Use Types Packs/Day Years Used Date Smoking Tobacco: Never Assessed Comments Unknown Sex and Gender Information Value Date Recorded Sex Assigned at Not on file Legal Sex Female 9:15 PM FIRE EQUIPMENT INSPECTOR HELPER Gender Identity Not on file [...] Rule Out 03/30/2020 03/30/2020 03/30/2020 9:29 PM FIRE EQUIPMENT INSPECTOR HELPER COVID-19 Rule Out 03/30/2020 03/30/2020 03/31/2020 12:28 PM FIRE EQUIPMENT INSPECTOR HELPER documented as of this encounter Care Teams Residential Collections Relationship Specialty Start Date End Date Hermes Ramirez III, MD [address] [facility] [address] [place] [address] PCP - General FAMILY PRACTICE 06/20/17 documented as of this encounter
--- OUTSIDE RECORDS SUMMARY | 2024-03-20 16:52 | XMS_ITS | Encounter Summary ---
Author Organization [facility] Address [address] [place] [address]. [place] [address] [place] [address] Care Team Providers Care Senior Science Consultant Name Role Phone Ashley ZUNIGA MD, Hermes Perez Primary Care Provid er Encounter Details Date Type Department Care Team (Late st Contact Info) Description 07/25/2000 Abstract [facility] [address] [place] [address] , Lazara Lange MD Social History Tobacco Use Types Packs/Day Years Used Date Smoking Tobacco: Never Assessed Comments Unknown Sex and Gender Information Value Date Recorded Sex Assigned at Not on file Legal Sex Female 9:15 PM COMPOSITE ASSEMBLER Gender Identity Not on file Sexual [...] Rule Out 03/30/2020 03/30/2020 03/30/2020 9:29 PM COMPOSITE ASSEMBLER COVID-19 Rule Out 03/30/2020 03/30/2020 03/31/2020 12:28 PM COMPOSITE ASSEMBLER documented as of this encounter Care Teams Senior Science Consultant Relationship Specialty Start Date End Date Hermes Ramirez III, MD [address] [facility] [address] [place] [address] PCP - General FAMILY PRACTICE 06/20/17 documented as of this encounter
--- OUTSIDE RECORDS SUMMARY | 2024-03-20 16:52 | XMS_ITS | Encounter Summary ---
Author Organization [facility] Address [address] [place] [address]. [place] [address] [place] [address] Care Team Providers Care Earring Maker Name Role Phone Ashley ZUNIGA MD, Hermes Perez Primary Care Provid er Encounter Details Date Type Department Care Team (Late st Contact Info) Description 10/04/2005 Abstract [facility] [address] [place] [address] Lazara Case MD Social History Tobacco Use Types Packs/Day Years Used Date Smoking Tobacco: Never Assessed Comments Unknown Sex and Gender Information Value Date Recorded Sex Assigned at Not on file Legal Sex Female 9:15 PM PRODUCER DIRECTOR Gender Identity Not on file Sexual [...] Rule Out 03/30/2020 03/30/2020 03/30/2020 9:29 PM PRODUCER DIRECTOR COVID-19 Rule Out 03/30/2020 03/30/2020 03/31/2020 12:28 PM PRODUCER DIRECTOR documented as of this encounter Care Teams Earring Maker Relationship Specialty Start Date End Date Hermes Ramirez III, MD [address] [facility] [address] [place] [address] PCP - General FAMILY PRACTICE 06/20/17 documented as of this encounter
--- OUTSIDE RECORDS SUMMARY | 2024-03-20 16:52 | XMS_ITS | Encounter Summary ---
Author Organization [facility] Address [address] [place] [address]. [place] [address] [place] [address] Care Team Providers Care Cellars Supervisor Name Role Phone Ashley ZUNIGA MD, Hermes Perez Primary Care Provid er Encounter Details Date Type Department Care Team (Latest Contact Info) Description 07/01/2013 Abstract [facility] Medical Group Lazara Case MD Social History Tobacco Use Types Packs/Day Years Used Date Smoking Tobacco: Never Assessed Comments Unknown Sex and Gender Information Value Date Recorded Sex Assigned at Not on file Legal Sex Female 9:15 PM HUMAN RESOURCES HR REPRESENTATIVE Gender Identity Not on file Sexual [...] on filedocumented in this encounter Care Teams Cellars Supervisor Relationship Specialty Start Date End Date Hermes Ramirez III, MD [address] [facility] [address] [place] [address] PCP - General FAMILY PRACTICE 06/20/17 documented as of this encounter
--- OUTSIDE RECORDS SUMMARY | 2024-03-20 16:52 | XMS_ITS | Encounter Summary ---
Author Organization [facility] Address [address] [place] [address]. [place] [address] [place] [address] Care Team Providers Care Demurrage Agent Name Role Phone Ashley ZUNIGA MD, Hermes Perez Primary Care Provid er Encounter Details Date Type Department Care Team (Late st Contact Info) Description 12/12/2003 Abstract [facility] Laboratory [address] [place] [address] , Lazara Lange MD Social History Tobacco Use Types Packs/Day Years Used Date Smoking Tobacco: Never Assessed Comments Unknown Sex and Gender Information Value Date Recorded Sex Assigned at Not on file Legal Sex Female 9:15 PM MILLINERY TEACHER Gender Identity Not on file Sexual [...] Rule Out 03/30/2020 03/30/2020 03/30/2020 9:29 PM MILLINERY TEACHER COVID-19 Rule Out 03/30/2020 03/30/2020 03/31/2020 12:28 PM MILLINERY TEACHER documented as of this encounter Care Teams Demurrage Agent Relationship Specialty Start Date End Date Hermes Ramirez III, MD [address] [facility] [address] [place] [address] PCP - General FAMILY PRACTICE 06/20/17 documented as of this encounter
--- OUTSIDE RECORDS SUMMARY | 2024-03-20 16:52 | XMS_ITS | Encounter Summary ---
Author Organization [facility] Address [address] [place] [address]. [place], [place] [address] [place] [address] Care Team Providers Care Electrical Engineering Professor Name Role Phone Unavailable Primary Care Provider Unavailabl e Encounter Details Date Type Department Care Team (Late st Contact Info) Description 11/02/2010 Abstract [facility] [address] [place] [address] Social History Tobacco Use Types Packs/Day Years Used Date Smoking Tobacco: Never Assessed Comments Unknown Sex and Gender Information Value Date Recorded Sex Assigned at Not on file Legal Sex Female 9:15 PM HYDRAULIC ELEVATOR CONSTRUCTOR Gender Identity Not on file Sexual Orientation Not on file documented as of this encounter Plan of Treatment Not on file documented as of this encounter Visit Diagnoses Diagnosis Female infertility Female infertility of unspecified origin documented in this encounter
--- OUTSIDE RECORDS SUMMARY | 2024-03-20 16:52 | XMS_ITS | Encounter Summary ---
Author Organization [facility] Address [address] [place] [address]. [place] [address] [place] [address] Care Team Providers Care Product Designer Name Role Phone Ashley ZUNIGA MD, Hermes Perez Primary Care Provid er Encounter Details Date Type Department Care Team (Late st Contact Info) Description 04/02/2004 Abstract [facility] [address] [place] [address] , Generic ConversionMD Social History Tobacco Use Types Packs/Day Years Used Date Smoking Tobacco: Never Assessed Comments Unknown Sex and Gender Information Value Date Recorded Sex Assigned at Not on file Legal Sex Female 9:15 PM LIGHT RAIL OPERATOR Gender Identity Not on file Sexual [...] Rule Out 03/30/2020 03/30/2020 03/30/2020 9:29 PM LIGHT RAIL OPERATOR COVID-19 Rule Out 03/30/2020 03/30/2020 03/31/2020 12:28 PM LIGHT RAIL OPERATOR documented as of this encounter Care Teams Product Designer Relationship Specialty Start Date End Date Hermes Ramirez III, MD [address] [place] [address] PCP - General FAMILY PRACTICE 06/20/17 documented as of this encounter
--- OUTSIDE RECORDS SUMMARY | 2024-03-20 16:52 | XMS_ITS | Encounter Summary ---
Author Organization [facility] Address [address] [place] [address]. [place], [place] [address] [place] [address] Care Team Providers Care Segment Block Layer Name Role Phone Unavailable Primary Care Provider Unavailabl e Encounter Details Date Type Department Care Team (Late st Contact Info) Description 04/04/2001 Abstract [facility] [address] [place] [address] , Lazara Lange MD Social History Tobacco Use Types Packs/Day Years Used Date Smoking Tobacco: Never Assessed Comments Unknown Sex and Gender Information Value Date Recorded Sex Assigned at Not on file Legal Sex Female 9:15 PM MAPLE PRODUCTS MAKER Gender Identity Not on file Sexual Orientation Not on file documented as of this encounter Plan of Treatment Not on file documented as of this encounter Visit Diagnoses Not on filedocumented in this encounter
--- OUTSIDE RECORDS SUMMARY | 2024-03-20 16:53 | XMS_ITS | Encounter Summary ---
Author Organization [facility] Address [address] [place] [address]. [place] [address] [place] [address] Care Team Providers Care Real Estate Assessor Name Role Phone Ashley ZUNIGA MD, Hermes Perez Primary Care Provid er Encounter Details Date Type Department Care Team (Late st Contact Info) Description 11/19/[address] [facility] [address] [place] [address] , Generic ConversionMD Social History Tobacco Use Types Packs/Day Years Used Date Smoking Tobacco: Never Assessed Comments Unknown Sex and Gender Information Value Date Recorded Sex Assigned at Not on file Legal Sex Female 9:15 PM INDUSTRIAL CONVEYOR BELT REPAIRER Gender Identity Not on file Sexual Orientation Not on file documented as of this encounter Plan of Treatment Not on file documented as of this encounter Visit Diagnoses Not on filedocumented in this encounter Care Teams Real Estate Assessor Relationship Specialty Start Date End Date Hermes Ramirez III, MD [address] [facility] [address] [place] [address] PCP - General FAMILY PRACTICE 06/20/17 documented as of this encounter
--- OUTSIDE RECORDS SUMMARY | 2024-03-20 16:53 | XMS_ITS | Encounter Summary ---
Author Organization [facility] Address [address] [place] [address]. [place] [address] [place] [address] Care Team Providers Care Rn Appeals Name Role Phone Ashley ZUNIGA MD, Hermes Perez Primary Care Provid er Encounter Details Date Type Department Care Team (Late st Contact Info) Description 02/03/[address] [facility] [address] [place] [address] , Generic ConversionMD Social History Tobacco Use Types Packs/Day Years Used Date Smoking Tobacco: Never Assessed Comments Unknown Sex and Gender Information Value Date Recorded Sex Assigned at Not on file Legal Sex Female 9:15 PM EQUIPMENT CLEANER Gender Identity Not on file Sexual Orientation Not on file documented as of this encounter Plan of Treatment Not on file documented as of this encounter Visit Diagnoses Not on filedocumented in this encounter Care Teams Rn Appeals Relationship Specialty Start Date End Date Hermes Ramirez III, MD [address] [facility] [address] [place] [address] PCP - General FAMILY PRACTICE 06/20/17 documented as of this encounter
--- OUTSIDE RECORDS SUMMARY | 2024-03-20 16:53 | XMS_ITS | Encounter Summary ---
Author Organization [facility] Address [address] [place] [address]. [place] [address] [place] [address] Care Team Providers Care Technician Automated Equipment Name Role Phone Ashley ZUNIGA MD, Hermes Perez Primary Care Provid er Encounter Details Date Type Department Care Team (Late st Contact Info) Description 08/22/[address] [facility] [address] [place] [address] , Generic ConversionMD Social History Tobacco Use Types Packs/Day Years Used Date Smoking Tobacco: Never Assessed Comments Unknown Sex and Gender Information Value Date Recorded Sex Assigned at Not on file Legal Sex Female 9:15 PM LETTER CARRIER Gender Identity Not on file Sexual Orientation Not on file documented as of this encounter Plan of Treatment Not on file documented as of this encounter Visit Diagnoses Not on filedocumented in this encounter Care Teams Technician Automated Equipment Relationship Specialty Start Date End Date Hermes Ramirez III, MD [address] [facility] [address] [place] [address] PCP - General FAMILY PRACTICE 06/20/17 documented as of this encounter
--- OUTSIDE RECORDS SUMMARY | 2024-03-20 16:53 | XMS_ITS | Encounter Summary ---
Author Organization [facility] Address [address] [place] [address]. [place] [address] [place] [address] Care Team Providers Care Ordnance Technician Name Role Phone Ashley ZUNIGA MD, Hermes Perez Primary Care Provid er Encounter Details Date Type Department Care Team (Late st Contact Info) Description 06/26/[address] [facility] [address] [place] [address] , Lazara Lange MD Social History Tobacco Use Types Packs/Day Years Used Date Smoking Tobacco: Never Assessed Comments Unknown Sex and Gender Information Value Date Recorded Sex Assigned at Not on file Legal Sex Female 9:15 PM SHEET METAL INSULATOR Gender Identity Not on file Sexual Orientation [...] Rule Out 03/30/2020 03/30/2020 03/30/2020 9:29 PM SHEET METAL INSULATOR COVID-19 Rule Out 03/30/2020 03/30/2020 03/31/2020 12:28 PM SHEET METAL INSULATOR documented as of this encounter Care Teams Ordnance Technician Relationship Specialty Start Date End Date Hermes Ramirez III, MD [address] [facility] 105 [place] [address] PCP - General FAMILY PRACTICE 06/20/17 documented as of this encounter
--- OUTSIDE RECORDS SUMMARY | 2024-03-20 16:53 | XMS_ITS | Encounter Summary ---
Author Organization [facility] Address [address] [place] [address]. [place] [address] [place] [address] Care Team Providers Care Electronics Utility Worker Name Role Phone Ashley ZUNIGA MD, Hermes Perez Primary Care Provid er Encounter Details Date Type Department Care Team (Late st Contact Info) Description 05/10/1999 Abstract [facility] [address] [place] [address] , Lazara Lange MD Social History Tobacco Use Types Packs/Day Years Used Date Smoking Tobacco: Never Assessed Comments Unknown Sex and Gender Information Value Date Recorded Sex Assigned at Not on file Legal Sex Female 9:15 PM CLOTH MERCERIZING SUPERVISOR Gender Identity Not on file Sexual [...] Rule Out 03/30/2020 03/30/2020 03/30/2020 9:29 PM CLOTH MERCERIZING SUPERVISOR COVID-19 Rule Out 03/30/2020 03/30/2020 03/31/2020 12:28 PM CLOTH MERCERIZING SUPERVISOR documented as of this encounter Care Teams Electronics Utility Worker Relationship Specialty Start Date End Date Hermes Ramirez III, MD [address] [facility] [address] [place] [address] PCP - General FAMILY PRACTICE 06/20/17 documented as of this encounter
--- OUTSIDE RECORDS SUMMARY | 2024-03-20 16:53 | XMS_ITS | Encounter Summary ---
Author Organization [facility] Address [address] [place] [address]. [place] [address] [place] [address] Care Team Providers Care Manager Name Role Phone Ashley ZUNIGA MD, Hermes Perez Primary Care Provid er Encounter Details Date Type Department Care Team (Late st Contact Info) Description 07/15/1998 Abstract S [facility] [address] [place] [address] , Lazara Lange MD Social History Tobacco Use Types Packs/Day Years Used Date Smoking Tobacco: Never Assessed Comments Unknown Sex and Gender Information Value Date Recorded Sex Assigned at Not on file Legal Sex Female 9:15 PM ZINC PLATE CUTTER Gender Identity Not on file Sexual [...] Rule Out 03/30/2020 03/30/2020 03/30/2020 9:29 PM ZINC PLATE CUTTER COVID-19 Rule Out 03/30/2020 03/30/2020 03/31/2020 12:28 PM ZINC PLATE CUTTER documented as of this encounter Care Teams Manager Relationship Specialty Start Date End Date Hermes Ramirez III, MD [address] [facility] [address] [place] [address] PCP - General FAMILY PRACTICE 06/20/17 documented as of this encounter
--- OUTSIDE RECORDS SUMMARY | 2024-03-20 16:53 | XMS_ITS | Encounter Summary ---
Author Organization [facility] Address [address] [place] [address]. [place] [address] [place] [address] Care Team Providers Care Logging Crew Supervisor Name Role Phone Ashley ZUNIGA MD, Hermes Perez Primary Care Provid er Encounter Details Date Type Department Care Team (Late st Contact Info) Description 05/04/[address] [facility] [address] [place] [address] , Generic ConversionMD Social History Tobacco Use Types Packs/Day Years Used Date Smoking Tobacco: Never Assessed Comments Unknown Sex and Gender Information Value Date Recorded Sex Assigned at Not on file Legal Sex Female 9:15 PM POUCH MAKING MACHINE OPERATOR Gender Identity Not on file Sexual Orientation Not on file documented as of this encounter Plan of Treatment Not on file documented as of this encounter Visit Diagnoses Not on filedocumented in this encounter Care Teams Logging Crew Supervisor Relationship Specialty Start Date End Date Hermes Ramirez III, MD [address] [facility] [address] [place] [address] PCP - General FAMILY PRACTICE 06/20/17 documented as of this encounter
--- OUTSIDE RECORDS SUMMARY | 2024-03-20 16:53 | XMS_ITS | Encounter Summary ---
Author Organization [facility] Address [address] [place] [address]. [place] [address] [place] [address] Care Team Providers Care Protective Signal Repairer Name Role Phone Ashley ZUNIGA MD, Hermes Perez Primary Care Provid er Encounter Details Date Type Department Care Team (Late st Contact Info) Description 02/16/[address] [facility] [address] [place] [address] , Lazara Lange MD Social History Tobacco Use Types Packs/Day Years Used Date Smoking Tobacco: Never Assessed Comments Unknown Sex and Gender Information Value Date Recorded Sex Assigned at Not on file Legal Sex Female 9:15 PM PAPER INSPECTOR Gender Identity Not on file Sexual Orientation Not on file documented as of this encounter Plan of Treatment Not on file documented as of this encounter Visit Diagnoses Not on filedocumented in this encounter Care Teams Protective Signal Repairer Relationship Specialty Start Date End Date Hermes Ramirez III, MD [address] [facility] [address] [place] [address] PCP - General FAMILY PRACTICE 06/20/17 documented as of this encounter
--- OUTSIDE RECORDS SUMMARY | 2024-03-20 16:53 | XMS_ITS | Encounter Summary ---
Author Organization [facility] Address [address] [place] [address]. [place] [address] [place] [address] Care Team Providers Care Special Investigation Unit Investigator Name Role Phone Ashley ZUNIGA MD, Hermes Perez Primary Care Provid er Encounter Details Date Type Department Care Team (Late st Contact Info) Description 05/17/1999 Abstract [facility] [address] [place] [address] , Lazara Lange MD Social History Tobacco Use Types Packs/Day Years Used Date Smoking Tobacco: Never Assessed Comments Unknown Sex and Gender Information Value Date Recorded Sex Assigned at Not on file Legal Sex Female 9:15 PM TOW CAR DRIVER Gender Identity Not on file Sexual Orientation Not on file documented as of this encounter Plan of Treatment Not on file documented as of this encounter Visit Diagnoses Not on filedocumented in this encounter Care Teams Special Investigation Unit Investigator Relationship Specialty Start Date End Date Hermes Ramirez III, MD [address] [facility] [address] [place] [address] PCP - General FAMILY PRACTICE 06/20/17 documented as of this encounter
--- OUTSIDE RECORDS SUMMARY | 2024-03-20 16:53 | XMS_ITS | Encounter Summary ---
Author Organization [facility] Address [address] [place] [address]. [place] [address] [place] [address] Care Team Providers Care Paraffin Machine Operator Name Role Phone Ashley ZUNIGA MD, Hermes Perez Primary Care Provid er Encounter Details Date Type Department Care Team (Late st Contact Info) Description 01/18/2000 Abstract S [facility] [address] [place] [address] , Lazara Lange MD Social History Tobacco [...] documented as of this encounter Care Teams Paraffin Machine Operator Relationship Specialty Start Date End Date Hermes Ramirez III, MD [address] [facility] [address] [place] [address] PCP - General FAMILY PRACTICE 06/20/17 documented as of this encounter
--- OUTSIDE RECORDS SUMMARY | 2024-03-20 16:53 | XMS_ITS | Encounter Summary ---
Author Organization [facility] Address [address] [place] [address]. [place] [address] [place] [address] Care Team Providers Care Sustainability Purchasing Agent Name Role Phone Ashley ZUNIGA MD, Hermes Perez Primary Care Provid er Encounter Details Date Type Department Care Team (Late st Contact Info) Description 09/30/[address] [facility] [address] [place] [address] , Generic ConversionMD Social History Tobacco Use Types Packs/Day Years Used Date Smoking Tobacco: Never Assessed Comments Unknown Sex and Gender Information Value Date Recorded Sex Assigned at Not on file Legal Sex Female 9:15 PM PIZZAMAKER Gender Identity Not on file Sexual Orientation Not on file documented as of this encounter Plan of Treatment Not on file documented as of this encounter Visit Diagnoses Not on filedocumented in this encounter Care Teams Sustainability Purchasing Agent Relationship Specialty Start Date End Date Hermes Ramirez III, MD [address] [facility] [address] [place] [address] PCP - General FAMILY PRACTICE 06/20/17 documented as of this encounter
--- OUTSIDE RECORDS SUMMARY | 2024-03-20 16:53 | XMS_ITS | Encounter Summary ---
Author Organization [facility] Address [address] [place] [address]. 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
--- OUTSIDE RECORDS SUMMARY | 2024-03-20 16:53 | XMS_ITS | Encounter Summary ---
Author Organization [facility] Address [address] [place] [address]. [place] [address] [place] [address] Care Team Providers Care Shuttle Fixer Name Role Phone Ashley ZUNIGA MD, Hermes Perez Primary Care Provid er Encounter Details Date Type Department Care Team (Late st Contact Info) Description 01/20/2000 Abstract [facility] [address] [place] [address] , Lazara Lange MD Social History Tobacco Use Types Packs/Day Years Used Date Smoking Tobacco: Never Assessed Comments Unknown Sex and Gender Information Value Date Recorded Sex Assigned at Not on file Legal Sex Female 9:15 PM MEDICAL BILL PROCESSOR Gender Identity Not on file Sexual [...] Rule Out 03/30/2020 03/30/2020 03/30/2020 9:29 PM MEDICAL BILL PROCESSOR COVID-19 Rule Out 03/30/2020 03/30/2020 03/31/2020 12:28 PM MEDICAL BILL PROCESSOR documented as of this encounter Care Teams Shuttle Fixer Relationship Specialty Start Date End Date Hermes Ramirez III, MD [address] [facility] [address] [place] [address] PCP - General FAMILY PRACTICE 06/20/17 documented as of this encounter
--- OUTSIDE RECORDS SUMMARY | 2024-03-20 16:53 | XMS_ITS | Encounter Summary ---
Author Organization [facility] Address [address] [place] [address]. [place] [address] [place] [address] Care Team Providers Care Recruitment Consultant Name Role Phone Ashley ZUNIGA MD, Hermes Perez Primary Care Provid er Encounter Details Date Type Department Care Team (Late st Contact Info) Description 09/07/1999 Abstract [facility] [address] [place] [address] , Lazara Lange MD Social History Tobacco [...] on filedocumented in this encounter Care Teams Recruitment Consultant Relationship Specialty Start Date End Date Hermes Ramirez III, MD [address] [facility] [address] [place] [address] PCP - General FAMILY PRACTICE 06/20/17 documented as of this encounter
--- OUTSIDE RECORDS SUMMARY | 2024-03-20 16:53 | XMS_ITS | Encounter Summary ---
Author Organization [facility] Address [address] [place] [address]. [place] [address] [place] [address] Care Team Providers Care Store Grocery Merchandiser Name Role Phone Ashley ZUNIGA MD, Hermes Perez Primary Care Provid er Encounter Details Date Type Department Care Team (Late st Contact Info) Description 02/03/[address] [facility] [address] [place] [address] , Generic ConversionMD Social History Tobacco Use Types Packs/Day Years Used Date Smoking Tobacco: Never Assessed Comments Unknown Sex and Gender Information Value Date Recorded Sex Assigned at Not on file Legal Sex Female 9:15 PM VICE PRESIDENT OF BRAND MANAGEMENT Gender Identity Not on file Sexual Orientation Not on file documented as of this encounter Plan of Treatment Not on file documented as of this encounter Visit Diagnoses Not on filedocumented in this encounter Care Teams Store Grocery Merchandiser Relationship Specialty Start Date End Date Hermes Ramirez III, MD [address] [facility] [address] [place] [address] PCP - General FAMILY PRACTICE 06/20/17 documented as of this encounter
--- OUTSIDE RECORDS SUMMARY | 2024-03-20 16:53 | XMS_ITS | Encounter Summary ---
Author Organization [facility] Address [address] [place] [address]. [place] [address] [place] [address] Care Team Providers Care Employee Benefits Specialist Name Role Phone Ashley ZUNIGA MD, Hermes Perez Primary Care Provid er Encounter Details Date Type Department Care Team (Late st Contact Info) Description 05/04/[address] [facility] [address] [place] [address] , Generic ConversionMD Social History Tobacco Use Types Packs/Day Years Used Date Smoking Tobacco: Never Assessed Comments Unknown Sex and Gender Information Value Date Recorded Sex Assigned at Not on file Legal Sex Female 9:15 PM PEDIATRIC UROLOGIST Gender Identity Not on file Sexual Orientation Not on file documented as of this encounter Plan of Treatment Not on file documented as of this encounter Visit Diagnoses Not on filedocumented in this encounter Care Teams Employee Benefits Specialist Relationship Specialty Start Date End Date Hermes Ramirez III, MD [address] [facility] [address] [place] [address] PCP - General FAMILY PRACTICE 06/20/17 documented as of this encounter
--- OUTSIDE RECORDS SUMMARY | 2024-03-20 16:53 | XMS_ITS | Encounter Summary ---
Author Organization [facility] Address [address] [place] [address]. [place] [address] [place] [address] Care Team Providers Care Corporate Development Associate Name Role Phone Ashley ZUNIGA MD, Hermes Perez Primary Care Provid er Encounter Details Date Type Department Care Team (Late st Contact Info) Description 09/30/[address] [facility] [address] [place] [address] , Generic ConversionMD Social History Tobacco Use Types Packs/Day Years Used Date Smoking Tobacco: Never Assessed Comments Unknown Sex and Gender Information Value Date Recorded Sex Assigned at Not on file Legal Sex Female 9:15 PM CONSERVATION TECHNICIAN Gender Identity Not on file Sexual Orientation Not on file documented as of this encounter Plan of Treatment Not on file documented as of this encounter Visit Diagnoses Not on filedocumented in this encounter Care Teams Corporate Development Associate Relationship Specialty Start Date End Date Hermes Ramirez III, MD [address] [facility] [address] [place] [address] PCP - General FAMILY PRACTICE 06/20/17 documented as of this encounter
--- OUTSIDE RECORDS SUMMARY | 2024-03-20 16:53 | XMS_ITS | Encounter Summary ---
Author Organization [facility] Address [address] [place] [address]. [place] [address] [place] [address] Care Team Providers Care Vocational Rehabilitation Technician Name Role Phone Ashley ZUNIGA MD, Hermes Perez Primary Care Provid er Encounter Details Date Type Department Care Team (Late st Contact Info) Description 03/18/[address] [facility] [address] [place] [address] , Generic ConversionMD Social History Tobacco Use Types Packs/Day Years Used Date Smoking Tobacco: Never Assessed Comments Unknown Sex and Gender Information Value Date Recorded Sex Assigned at Not on file Legal Sex Female 9:15 PM SOLAR INSTALLATION FOREMAN Gender Identity Not on file Sexual Orientation Not on file documented as of this encounter Plan of Treatment Not on file documented as of this encounter Visit Diagnoses Not on filedocumented in this encounter Care Teams Vocational Rehabilitation Technician Relationship Specialty Start Date End Date Hermes Ramirez III, MD [address] [facility] [address] [place] [address] PCP - General FAMILY PRACTICE 06/20/17 documented as of this encounter
--- OUTSIDE RECORDS SUMMARY | 2024-03-20 16:53 | XMS_ITS | Encounter Summary ---
Author Organization [facility] Address [address] [place] [address]. [place] [address] [place] [address] Care Team Providers Care Director Of Education And Training Name Role Phone Ashley ZUNIGA MD, Hermes Perez Primary Care Provid er Encounter Details Date Type Department Care Team (Late st Contact Info) Description 11/19/[address] [facility] [address] [place] [address] , Generic ConversionMD Social History Tobacco Use Types Packs/Day Years Used Date Smoking Tobacco: Never Assessed Comments Unknown Sex and Gender Information Value Date Recorded Sex Assigned at Not on file Legal Sex Female 9:15 PM SPONGE FISHERMAN Gender Identity Not on file Sexual Orientation Not on file documented as of this encounter Plan of Treatment Not on file documented as of this encounter Visit Diagnoses Not on filedocumented in this encounter Care Teams Director Of Education And Training Relationship Specialty Start Date End Date Hermes Ramirez III, MD [address] [facility] [address] [place] [address] PCP - General FAMILY PRACTICE 06/20/17 documented as of this encounter
--- OUTSIDE RECORDS SUMMARY | 2024-03-20 16:54 | XMS_ITS | Encounter Summary ---
Author Organization [facility] Address [address] [place] [address]. [place] [address] [place] [address] Care Team Providers Care Director Of Resource Development Name Role Phone Ashley ZUNIGA MD, Hermes Perez Primary Care Provid er Encounter Details Date Type Department Care Team (Late st Contact Info) Description 11/05/1996 Abstract [facility] [address] [place] [address] , Lazara Lange MD Social History Tobacco Use Types Packs/Day Years Used Date Smoking Tobacco: Never Assessed Comments Unknown Sex and Gender Information Value Date Recorded Sex Assigned at Not on file Legal Sex Female 9:15 PM OUTSIDE PARTS SALES Gender Identity Not on file Sexual Orientation [...] Rule Out 03/30/2020 03/30/2020 03/30/2020 9:29 PM OUTSIDE PARTS SALES COVID-19 Rule Out 03/30/2020 03/30/2020 03/31/2020 12:28 PM OUTSIDE PARTS SALES documented as of this encounter Care Teams Director Of Resource Development Relationship Specialty Start Date End Date Hermes Ramirez III, MD [address] [facility] [address] [place] [address] PCP - General FAMILY PRACTICE 06/20/17 documented as of this encounter
--- OUTSIDE RECORDS SUMMARY | 2024-03-20 16:54 | XMS_ITS | Encounter Summary ---
Author Organization [facility] Address [address] [place] [address]. [place] [address] [place] [address] Care Team Providers Care Community Health Nurse Supervisor Name Role Phone Ashley ZUNIGA MD, Hermes Perez Primary Care Provid er Encounter Details Date Type Department Care Team (Late st Contact Info) Description 12/19/[address] [facility] [address] [place] [address] , Generic ConversionMD Social History Tobacco Use Types Packs/Day Years Used Date Smoking Tobacco: Never Assessed Comments Unknown Sex and Gender Information Value Date Recorded Sex Assigned at Not on file Legal Sex Female 9:15 PM BULB WEEDER Gender Identity Not on file Sexual Orientation Not on file documented as of this encounter Plan of Treatment Not on file documented as of this encounter Visit Diagnoses Not on filedocumented in this encounter Care Teams Community Health Nurse Supervisor Relationship Specialty Start Date End Date Hermes Ramirez III, MD [address] [facility] [address] [place] [address] PCP - General FAMILY PRACTICE 06/20/17 documented as of this encounter
--- OUTSIDE RECORDS SUMMARY | 2024-03-20 16:54 | XMS_ITS | Encounter Summary ---
Author Organization [facility] Address [address] [place] [address]. [place] [address] [place] [address] Care Team Providers Care Writing Manager Name Role Phone Ashley ZUNIGA MD, Hermes Perez Primary Care Provid er Encounter Details Date Type Department Care Team (Late st Contact Info) Description 03/10/[address] [facility] [address] [place] [address] , Generic ConversionMD Social History Tobacco Use Types Packs/Day Years Used Date Smoking Tobacco: Never Assessed Comments Unknown Sex and Gender Information Value Date Recorded Sex Assigned at Not on file Legal Sex Female 9:15 PM WHIZZER OPERATOR Gender Identity Not on file Sexual Orientation Not on file documented as of this encounter Plan of Treatment Not on file documented as of this encounter Visit Diagnoses Not on filedocumented in this encounter Care Teams Writing Manager Relationship Specialty Start Date End Date Hermes Ramirez III, MD [address] [facility] [address] [place] [address] PCP - General FAMILY PRACTICE 06/20/17 documented as of this encounter
--- OUTSIDE RECORDS SUMMARY | 2024-03-20 16:54 | XMS_ITS | Encounter Summary ---
Author Organization [facility] Address [address] [place] [address]. [place] [address] [place] [address] Care Team Providers Care Coldfusion Name Role Phone Ashley ZUNIGA MD, Hermes Perez Primary Care Provid er Encounter Details Date Type Department Care Team (Late st Contact Info) Description 06/02/[address] [facility] [address] [place] [address] , Generic ConversionMD Social History Tobacco Use Types Packs/Day Years Used Date Smoking Tobacco: Never Assessed Comments Unknown Sex and Gender Information Value Date Recorded Sex Assigned at Not on file Legal Sex Female 9:15 PM ASSEMBLY RIVETER Gender Identity Not on file Sexual Orientation Not on file documented as of this encounter Plan of Treatment Not on file documented as of this encounter Visit Diagnoses Not on filedocumented in this encounter Care Teams Coldfusion Relationship Specialty Start Date End Date Hermes Ramirez III, MD [address] [facility] [address] [place] [address] PCP - General FAMILY PRACTICE 06/20/17 documented as of this encounter
--- OUTSIDE RECORDS SUMMARY | 2024-03-20 16:54 | XMS_ITS | Encounter Summary ---
Author Organization [facility] Address [address] [place] [address]. [place] [address] [place] [address] Care Team Providers Care Program Director/Traffic Director Name Role Phone Ashley ZUNIGA MD, Hermes Perez Primary Care Provid er Encounter Details Date Type Department Care Team (Late st Contact Info) Description 12/19/[address] [facility] [address] [place] [address] , Generic ConversionMD Social History Tobacco Use Types Packs/Day Years Used Date Smoking Tobacco: Never Assessed Comments Unknown Sex and Gender Information Value Date Recorded Sex Assigned at Not on file Legal Sex Female 9:15 PM LAMINATION TECHNICIAN Gender Identity Not on file Sexual Orientation Not on file documented as of this encounter Plan of Treatment Not on file documented as of this encounter Visit Diagnoses Not on filedocumented in this encounter Care Teams Program Director/Traffic Director Relationship Specialty Start Date End Date Hermes Ramirez III, MD [address] [facility] [address] [place] [address] PCP - General FAMILY PRACTICE 06/20/17 documented as of this encounter
--- OUTSIDE RECORDS SUMMARY | 2024-03-20 16:54 | XMS_ITS | Encounter Summary ---
Author Organization [facility] Address [address] [place] [address]. [place] [address] [place] [address] Care Team Providers Care Application Support Name Role Phone Ashley ZUNIGA MD, Hermes Perez Primary Care Provid er Encounter Details Date Type Department Care Team (Late st Contact Info) Description 10/12/1996 Abstract [facility] [address] [place] [address] , Generic ConversionMD Social History Tobacco Use Types Packs/Day Years Used Date Smoking Tobacco: Never Assessed Comments Unknown Sex and Gender Information Value Date Recorded Sex Assigned at Not on file Legal Sex Female 9:15 PM DOG POUND ATTENDANT Gender Identity Not on file Sexual [...] Rule Out 03/30/2020 03/30/2020 03/30/2020 9:29 PM DOG POUND ATTENDANT COVID-19 Rule Out 03/30/2020 03/30/2020 03/31/2020 12:28 PM DOG POUND ATTENDANT documented as of this encounter Care Teams Application Support Relationship Specialty Start Date End Date Hermes Ramirez III, MD [address] [facility] [address] [place] [address] PCP - General FAMILY PRACTICE 06/20/17 documented as of this encounter
--- OUTSIDE RECORDS SUMMARY | 2024-03-20 16:54 | XMS_ITS | Encounter Summary ---
Author Organization [facility] Address [address] [place] [address]. [place] [address] [place] [address] Care Team Providers Care Reactor Fueling Supervisor Name Role Phone Ashley ZUNIGA MD, Hermes Perez Primary Care Provid er Encounter Details Date Type Department Care Team (Late st Contact Info) Description 06/02/[address] [facility] [address] [place] [address] , Generic ConversionMD Social History Tobacco Use Types Packs/Day Years Used Date Smoking Tobacco: Never Assessed Comments Unknown Sex and Gender Information Value Date Recorded Sex Assigned at Not on file Legal Sex Female 9:15 PM RENEWABLE ENERGY PROJECT MANAGER Gender Identity Not on file Sexual Orientation Not on file documented as of this encounter Plan of Treatment Not on file documented as of this encounter Visit Diagnoses Not on filedocumented in this encounter Care Teams Reactor Fueling Supervisor Relationship Specialty Start Date End Date Hermes Ramirez III, MD [address] [facility] [address] [place] [address] PCP - General FAMILY PRACTICE 06/20/17 documented as of this encounter
--- OUTSIDE RECORDS SUMMARY | 2024-03-20 16:54 | XMS_ITS | Encounter Summary ---
Author Organization [facility] Address [address] [place] [address]. [place] [address] [place] [address] Care Team Providers Care Almond Paste Molder Name Role Phone Ashley ZUNIGA MD, Hermes Perez Primary Care Provid er Encounter Details Date Type Department Care Team (Late st Contact Info) Description 03/10/[address] [facility] [address] [place] [address] , Generic ConversionMD Social History Tobacco Use Types Packs/Day Years Used Date Smoking Tobacco: Never Assessed Comments Unknown Sex and Gender Information Value Date Recorded Sex Assigned at Not on file Legal Sex Female 9:15 PM REEL BLADE BENDER FURNACE TENDER Gender Identity Not on file Sexual Orientation Not on file documented as of this encounter Plan of Treatment Not on file documented as of this encounter Visit Diagnoses Not on filedocumented in this encounter Care Teams Almond Paste Molder Relationship Specialty Start Date End Date Hermes Ramirez III, MD [address] [facility] [address] [place] [address] PCP - General FAMILY PRACTICE 06/20/17 documented as of this encounter
--- OUTSIDE RECORDS SUMMARY | 2024-03-20 16:54 | XMS_ITS | Encounter Summary ---
Author Organization [facility] Address [address] [place] [address]. [place] [address] [place] [address] Care Team Providers Care Bracelet And Brooch Maker Name Role Phone Ashley ZUNIGA MD, Hermes Perez Primary Care Provid er Encounter Details Date Type Department Care Team (Late st Contact Info) Description 06/06/[address] [facility] [address] [place] [address] , Generic ConversionMD Social History Tobacco Use Types Packs/Day Years Used Date Smoking Tobacco: Never Assessed Comments Unknown Sex and Gender Information Value Date Recorded Sex Assigned at Not on file Legal Sex Female 9:15 PM TEACHER HOME THERAPY Gender Identity Not on file Sexual Orientation Not on file documented as of this encounter Plan of Treatment Not on file documented as of this encounter Visit Diagnoses Not on filedocumented in this encounter Care Teams Bracelet And Brooch Maker Relationship Specialty Start Date End Date Hermes Ramirez III, MD [address] [facility] [address] [place] [address] PCP - General FAMILY PRACTICE 06/20/17 documented as of this encounter
--- OUTSIDE RECORDS SUMMARY | 2024-03-20 16:54 | XMS_ITS | Encounter Summary ---
Author Organization [facility] Address [address] [place] [address]. [place] [address] [place] [address] Care Team Providers Care Forensic Scientist Name Role Phone Ashley ZUNIGA MD, Hermes Perez Primary Care Provid er Encounter Details Date Type Department Care Team (Late st Contact Info) Description 08/22/[address] [facility] [address] [place] [address] , Generic ConversionMD Social History Tobacco Use Types Packs/Day Years Used Date Smoking Tobacco: Never Assessed Comments Unknown Sex and Gender Information Value Date Recorded Sex Assigned at Not on file Legal Sex Female 9:15 PM STERILISATION TECHNICIAN Gender Identity Not on file Sexual Orientation Not on file documented as of this encounter Plan of Treatment Not on file documented as of this encounter Visit Diagnoses Not on filedocumented in this encounter Care Teams Forensic Scientist Relationship Specialty Start Date End Date Hermes Ramirez III, MD [address] [facility] [address] [place] [address] PCP - General FAMILY PRACTICE 06/20/17 documented as of this encounter
--- OUTSIDE RECORDS SUMMARY | 2024-03-20 16:54 | XMS_ITS | Encounter Summary ---
Author Organization [facility] Address [address] [place] [address]. [place] [address] [place] [address] Care Team Providers Care Commutator Assembler Name Role Phone Ashley ZUNIGA MD, Hermes Perez Primary Care Provid er Encounter Details Date Type Department Care Team (Late st Contact Info) Description 06/06/[address] [facility] [address] [place] [address] , Generic ConversionMD Social History Tobacco Use Types Packs/Day Years Used Date Smoking Tobacco: Never Assessed Comments Unknown Sex and Gender Information Value Date Recorded Sex Assigned at Not on file Legal Sex Female 9:15 PM ASSORTMENT PLANNER Gender Identity Not on file Sexual Orientation Not on file documented as of this encounter Plan of Treatment Not on file documented as of this encounter Visit Diagnoses Not on filedocumented in this encounter Care Teams Commutator Assembler Relationship Specialty Start Date End Date Hermes Ramirez III, MD [address] [facility] [address] [place] [address] PCP - General FAMILY PRACTICE 06/20/17 documented as of this encounter
--- OUTSIDE RECORDS SUMMARY | 2024-03-20 18:03 | XMS_ITS | Encounter Summary ---
Author Organization [facility] Address [address] [place] [address] Phone Care Team Providers Care Fiberglass Roller Name Role Phone Hremes Ramirez MD Primary Care Provider [phone] Encounter Details Date Type Department Care Team (Latest Contact Info) Description 02/04/2020 2:45 PM DATABASES SOFTWARE CONSULTANT Audiology Tech Visit [facility] [address] [place] [address] Audiology, Enta History of recurrent [...] COVID-19? No / Unsure 02/04/2020 2:46 PM DATABASES SOFTWARE CONSULTANT documented as of this encounter Progress Notes [...] drainage. Testing requested by Dilip Willard APRN. BASES SOFTWARE CONSULTANT documented in this encounter Plan of [...] Total Score: 0 02/04/20 20 2:00 PM DATABASES SOFTWARE CONSULTANT documented as of this encounter Care Teams Fiberglass Roller Relationship Specialty Start Date End Date Hermes Ramirez MD [address] [address] PCP - General Family Medicine 05/09/18 documented as of this encounter
--- OUTSIDE RECORDS SUMMARY | 2024-03-20 18:03 | XMS_ITS | Encounter Summary ---
Author Organization [facility] Address [address] [place] [address] Phone Care Team Providers Care Jointer Machine Operator Name Role Phone Hremes Ramirez MD Primary Care Provider [phone] Encounter Details Date Type Department Care Team (Latest Contact Info) Description 01/20/2021 2:15 PM CDT Audiology Tech Visit [facility] [address] [place] [address] Audiology, Enta Discharge Disposition: Discharged [...] documented as of this encounter Care Teams Jointer Machine Operator Relationship Specialty Start Date End Date Hermes Ramirez MD [address] [facility] [address] [place] [address] PCP - General Family Medicine 05/09/18 documented as of this encounter
--- OUTSIDE RECORDS SUMMARY | 2024-03-20 18:03 | XMS_ITS | Encounter Summary ---
Author Organization [facility] Address [address] [place] [address] Phone Care Team Providers Care Denture Packer Name Role Phone Hermes Ramirez MD Primary Care Provider [phone] Reason for Visit * Reason Comments Wax in Ear Encounter Details Date Type Department Care Team (Late st Contact Info) Description 12/06/2021 1:15 PM CDT Office Visit [facility] [address] [place] [address] Mimi Cox N, MANAGER OPERATING, DEVELOPMENT COORDINATOR [address] [place] [address] ETD (Eustachian tube dysfunction), bilateral [...] receive an e-mail from a company called [employer] This is an anonymous survey of approximately [...] Age: 41 y.o. : 1980 Encounter Dept: [facility] Encounter Date: 12/06/2021 IMPRESSION: Right sided [...] current plan of care. LEVEL OF SERVICE: [id number] HISTORY OF PRESENT ILLNESS: Elsa Browne is [...] to be at 1.8. Mimi Cox DNP, RESIDENTIAL FIELD MANAGER-BC/sdt Vitals, Current Meds & Allergies: Vitals: 12/06/21 [...] Response Take 81 mg by mouth. ??? Aurwpbtuoc-BIHP-Toly-Cod (Fioricet/Codeine) 98-298-57-30 MG Capsule Take by mouth. ??? Pqcxlsuyha-PYUJ-Jkmwsrjj 50-300-40 MG Capsule Take 1 Capsule by [...] 01/10/2018 Procedure: LASER ABLATION CONDYLOMA GENITAL AREA (#[id number]); Surgeon: Umesh Washington MD; Location: [facility]; Service: Obstetrics Gynecology ??? ENDOMETRIAL ABLATION ??? FINGER NAIL SURGERY Right 02/21/2018 Procedure: RIGHT LONG FINGER NAIL BED PARTIAL ABLATION; Surgeon: Johnson Hernandez MD; Location: [facility]; Service: Orthopaedic ??? FINGER NAIL SURGERY Right 09/14/2018 Procedure: RIGHT THUMB ANDLONG FINGER PARTIAL NAILBED ABLATION; Surgeon: Johnson Hernandez MD; Location: [facility]; Service: Orthopaedic ??? INGUINAL HERNIA REPAIR [...] documented as of this encounter Care Teams Denture Packer Relationship Specialty Start Date End Date Hermes Ramirez MD [address] [address] PCP - General Family Medicine 05/09/18 documented as of this encounter
--- OUTSIDE RECORDS SUMMARY | 2024-03-20 18:03 | XMS_ITS | Clinical Summary ---
Author Organization [facility] Address [address] [place] [address] Phone Care Team Providers Care Keypunch Operator Name Role Phone Hermes Ramirez MD Primary Care Provider [phone] [phone] Allergies Active Allergy Reactions Criticality Noted Date [...] BEDTIME 2 Active Butalbital-APAP -Caff-Cod (Fioricet/Codei ne) 22-297-90-30 MG Capsule Take by mouth. 2 Active [...] this topic Insurance MEDICAID BL[place] [facility] Care Teams Keypunch Operator Relationship Specialty Start Date End Date Hermes Ramirez MD [address] [address] PCP - General Family Medicine 05/09/18
--- OUTSIDE RECORDS SUMMARY | 2024-03-20 18:03 | XMS_ITS | Encounter Summary ---
Author Organization [facility] Address [address] [place] [address] Phone Care Team Providers Care Bucket Hooker Name Role Phone Hermes Ramirez MD Primary Care Provider [phone] Reason for Visit * Reason Onset Date Comments Prior Authorization 12/18/2019 Desoximetaso ne prior authorization denial Encounter Details Date Type Department Care Team (Late st Contact Info) Description 12/18/2019 Telephone [facility] Case Management [address] [place] [address] Tara Obrien, REHABILITATION ATTENDANT, WASTEWATER TREATMENT PLANT INSTRUCTOR [address] [place] [address] Prior Authorization (Desoximetasone prior authorization denial) Social [...] CDT MED PRIOR AUTH: Recvd notification from [employer] request for Desoximetasone 0.25% cream was DENIED, [...] cream, lotion, ointment. Cover my meds VO [id number] Please call me if any questions [phone]. documented in this encounter Plan of Treatment Not on file documented as of this encounter Visit Diagnoses Not on filedocumented in this encounter Additional Health Concerns Assessment Noted Time PHQ-9 Depression Total Score: 0 05/09/19 19 3:00 PM BASKET BRAIDER documented as of this encounter Care Teams Bucket Hooker Relationship Specialty Start Date End Date Hermes Ramirez MD [address] [place] [address] PCP - General Family Medicine 05/09/18 documented as of this encounter
--- OUTSIDE RECORDS SUMMARY | 2024-03-20 18:03 | XMS_ITS | Encounter Summary ---
Author Organization [facility] Address [address] [place] [address] Phone Care Team Providers Care Budget Clerk Name Role Phone Hermes Ramirez MD Primary Care Provider + [phone] Encounter Details Date Type Department Care Team (Late st Contact Info) Description 02/06/2020 Telephone [facility] [address] [place] [address] Teofilo Willard, AERIAL CROP DUSTER, PACK PULLER [address] [place] [address] Social History Tobacco Use Types Packs/Day Years [...] COVID-19? No / Unsure 02/04/2020 2:46 PM MATHEMATICAL ENGINEERING TECHNICIAN documented as of this encounter Miscellaneous Notes * Telephone Encounter - Freida Junior CMA - 02/06/2020 3:28 PM CST Per Rachel pt to have VNG done before appt with Pt instructions given and pt aware of questionnaire to fill out and bring with the day of testing. Notified patient. Verbalized understanding and appreciation. 02/18/20 @3:15 EMATICAL ENGINEERING TECHNICIAN documented in this encounter Plan of Treatment Not on file documented as of this encounter Visit Diagnoses Not on filedocumented in this encounter Additional Health Concerns Assessment Noted Time PHQ-9 Depression Total Score: 0 02/04/20 20 2:00 PM MATHEMATICAL ENGINEERING TECHNICIAN documented as of this encounter Care Teams Budget Clerk Relationship Specialty Start Date End Date Hermes Ramirez MD [address] [facility] [address] [place] [address] PCP - General Family Medicine 05/09/18 documented as of this encounter
--- OUTSIDE RECORDS SUMMARY | 2024-03-20 18:03 | XMS_ITS | Encounter Summary ---
Author Organization [facility] Address [address] [place] [address] Phone Care Team Providers Care Financial Compliance Manager Name Role Phone Hermes Ramirez MD Primary Care Provider +1 [phone] Reason for Visit * Reason Comments Ear Drainage Encounter Details Date Type Department Care Team (Late st Contact Info) Description 02/04/2020 2:30 PM INTENSIVIST Office Visit [facility] [address] [place] [address] Teofilo Willard, FACILITIES MANAGEMENT EXECUTIVE, PRODUCE TEAM MEMBER [address] [place] [address] Otorrhea of both ears (Primary Dx); History [...] COVID-19? No / Unsure 02/04/2020 2:46 PM INTENSIVIST documented as of this encounter Last Filed Vital Signs Vital Sign Reading Time Taken Comments Blood Pressure - - Pulse 80 02/04/2020 2:51 PM INTENSIVIST Temperature - - Respiratory Rate - - Oxygen Saturation 98% 02/04/2020 2:51 PM INTENSIVIST Inhaled Oxygen Concentration - - Weight 77.1 kg (170 lb) 02/04/2020 2:51 PM INTENSIVIST Height 157.5 cm (5' 2 ) 02/04/2020 2:51 PM INTENSIVIST Body Mass Index 31.09 02/04/2020 2:51 PM INTENSIVIST documented in this encounter Patient Instructions * Patient Instructions* Freida Junior CMA - 02/04/2020 2:30 PM INTENSIVIST Patient/family member/caregiver verbalized understanding of patient instructions from today's visit. After your visit you may receive an e-mail from a company called [employer]. This is an anonymous survey of approximately 16 questions that let us know how we did today. We value your feedback, as we want to know how we are doing and what we can do to improve your experience and serve you better. Thank you. NSIVIST documented in this encounter Progress Notes * Teofilo Willard, ANT, PRODUCE TEAM MEMBER - 02/04/2020 2:30 PM CST Patient: Elsa Browne Age: 39 y.o. : 1980 Encounter Dept: [facility] Encounter Date: 02/04/2020 Chief Complaint Patient [...] have a history of tympanostomy tubesplaced in [place]. Dr. Ochoa had removed those tubes here [...] from 2 months ago. Teofilo Willard DNP, FACILITIES MANAGEMENT EXECUTIVE, CHINESE INSTRUCTOR-BC Vitals, Current Meds & Allergies: Vitals: 02/04/20 1451 Pulse: 80 SpO2: 98% Weight: 170 lb (77.1 kg) Height: 5' 2 (1.575 m) Body surface area is 1.84 meters squared. Body mass index is 31.09 kg/m??. Outpatient Encounter Medications as of 02/04/2020 Medication Sig Dispense Refill ??? butorphanol (STADOL) 10 MG/ML Solution 1 Antigo by Nasal route every 4 hours as [...] 01/10/2018 Procedure: LASER ABLATION CONDYLOMA GENITAL AREA (#[id number]); Surgeon: Umesh Washington MD; Location: [facility] OR; Service: Obstetrics Gynecology ??? ENDOMETRIAL [...] Eliceo Craft MD at 02/04/2020 5:39 PM INTENSIVIST NSIVIST NSIVIST documented in this encounter Plan of Treatment Not on file documented as of this encounter Visit Diagnoses Diagnosis Otorrhea of both ears- Primary Otorrhea, unspecified History of recurrent ear infection Hearing exam without abnormal findings documented in this encounter Additional Health Concerns Assessment Noted Time PHQ-9 Depression Total Score: 0 02/04/20 20 2:00 PM INTENSIVIST documented as of this encounter Care Teams Financial Compliance Manager Relationship Specialty Start Date End Date Hermes Ramirez MD [address] [facility] [address] [place] [address] PCP - General Family Medicine 05/09/18 documented as of this encounter
--- OUTSIDE RECORDS SUMMARY | 2024-03-20 18:03 | XMS_ITS | Encounter Summary ---
Author Organization [facility] Address [address] [place] [address] Phone Care Team Providers Care Administrative Support Specialist Name Role Phone Hermes Ramirez MD Primary Care Provider +1 [phone] Reason for Visit * Reason Comments Ear Fullness Encounter Details Date Type Department Care Team (Late st Contact Info) Description 10/13/2021 11:00 AM CDT Office Visit [facility] [address] [place] [address] Kris Alicea MD [address] [place] [address] Bilateral otitis media with effusion [...] receive an e-mail from a company called [employer]. This is an anonymous survey of approximately [...] [facility] Encounter Date: 10/13/2021 ASSESSMENT: Bilateral otitis [...] ventilation tube insertion several years ago in [place]. The tubes ended up being removed by [...] She tolerated the procedure well. Kris Alicea MD/[facility] Vitals, Current Meds & Allergies: Vitals: 10/13/21 [...] Take 81 mg by mouth. ??? [DISCONTINUED] tmvkgnkhnh-hrtlpmvtuwpbu-ulqsgman (FIORICET, ESGIC) 50-325-40 MG Tablet TAKE 1-2TABLETS [...] 01/10/2018 Procedure: LASER ABLATION CONDYLOMA GENITAL AREA (#[id number]); Surgeon: Umesh Washington MD; Location: [facility] OR; Service: Obstetrics Gynecology ??? ENDOMETRIAL ABLATION ??? FINGER NAIL SURGERY Right 02/21/2018 Procedure: RIGHT LONG FINGER NAIL BED PARTIAL ABLATION; Surgeon: Johnson Hernandez MD; Location: [facility]; Service: Orthopaedic ??? FINGER NAIL SURGERY Right 09/14/2018 Procedure: RIGHT THUMB ANDLONG FINGER PARTIAL NAILBED ABLATION; Surgeon: Johnson Hernandez MD; Location: [facility]; Service: Orthopaedic ??? INGUINAL HERNIA REPAIR Bilateral [...] documented as of this encounter Care Teams Administrative Support Specialist Relationship Specialty Start Date End Date Hermes Ramirez MD [address] [address] PCP - General Family Medicine 05/09/18 documented as of this encounter
--- OUTSIDE RECORDS SUMMARY | 2024-03-20 18:03 | XMS_ITS | Encounter Summary ---
Author Organization [employer] Care Team Providers Care Dog Handler Or Trainer Name Role Phone Hermes Ramirez MD Primary Care Provider + -[phone] Encounter Details Date Type Department Care Team [...] COVID-19? No / Unsure 02/04/2020 2:46 PM KENNEL HELPER documented as of this encounter Plan of Treatment Not on file documented as of this encounter Visit Diagnoses Not on filedocumented in this encounter Additional Health Concerns Assessment Noted Time PHQ-9 Depression Total Score: 0 02/04/20 20 2:00 PM KENNEL HELPER documented as of this encounter Care Teams Dog Handler Or Trainer Relationship Specialty Start Date End Date Hermes Ramirez MD [address] [address] PCP - General Family Medicine 05/09/18 documented as of this encounter
--- OUTSIDE RECORDS SUMMARY | 2024-03-20 18:03 | XMS_ITS | Encounter Summary ---
Author Organization [facility] Address [address] [place] [address] Phone Care Team Providers Care Golf Ball Inspector Name Role Phone Hermes Ramirez MD Primary Care Provider + -[phone] Encounter Details Date Type Department Care Team (Late st Contact Info) Description 07/29/2021 Telephone [facility] [address] [place] [address] Mimi Cox N, TAR POT MAN, POLYSOMNOGRAPHY TECH [address] [place] [address] Social History Tobacco Use Types [...] documented as of this encounter Care Teams Golf Ball Inspector Relationship Specialty Start Date End Date Hermes Ramirez MD [address] [address] PCP - General Family Medicine 05/09/18 documented as of this encounter
--- OUTSIDE RECORDS SUMMARY | 2024-03-20 18:03 | XMS_ITS | Encounter Summary ---
Author Organization [facility] Address [address] [place] [address] Phone Care Team Providers Care Bar Turner Name Role Phone Hermes Ramirez MD Primary Care Provider [phone] Reason for Visit * Reason Comments Ear Pain Ear Drainage Encounter Details Date Type Department Care Team (Late st Contact Info) Description 12/02/2021 8:45 AM CDT Office Visit [facility] [address] [place] [address] Mimi Cox N, FIELD HOCKEY AND LACROSSE COACH, LAMINATION MACHINE OPERATOR [address] [place] [address] Otomycosis of both ears (Primary [...] receive an e-mail from a company called [employer]. This is an anonymous survey of approximately [...] Age: 41 y.o. : 1980 Encounter Dept[facility] Encounter Date: 12/02/2021 IMPRESSION: Bilateral otomycosis. [...] current plan of care. LEVEL OF SERVICE: [phone] - [phone], [phone] HISTORY OF PRESENT ILLNESS: Elsa Browne is a 41-year-old female who presents to the office today for evaluation of otorrhea that she has been experiencing for the last two weeks. She had some slight ear drainage before she went to [place]. While she was in [place] she was swimming in the ocean,and the [...] to those records. She went to the [facility] emergency room. She describes the otorrhea as [...] ears. Patient tolerated debridement. Mimi Cox DNP, PHOTOGRAPHIC DEVELOPER AND PRINTER, TELEVISION MAINTENANCE WORKER-BC/[facility] Vitals, Current Meds & Allergies: Vitals: [...] Response Take 81 mg by mouth. ??? Jmsnsudpkd-BEDM-Eorb-Cod (Fioricet/Codeine) 21-867-19-30 MG Capsule Take by mouth. ??? Tyjjclmveb-KVKJ-Dznouwjl 50-300-40 MG Capsule Take 1 Capsule by [...] 01/10/2018 Procedure: LASER ABLATION CONDYLOMA GENITAL AREA (#[id number]); Surgeon: Umesh Washington MD; Location: [facility] OR; Service: Obstetrics Gynecology ??? ENDOMETRIAL [...] Orde r Schedule BINOCULAR MICROSCOPY SEPARATE PROCEDURE SD Charge Routine Otomycosis of both ears ETD (Eustachian tube dysfunction), bilateral Ordered: 12/02/2021 documented as of this encounter Visit Diagnoses Diagnosis Otomycosis of both ears- Primary ETD (Eustachian tube dysfunction), bilateral documented in this encounter Additional Health Concerns Assessment Noted Time PHQ-9 Depression Total Score: 0 01/21/20 21 2:00 PM CDT documented as of this encounter Care Teams Bar Turner Relationship Specialty Start Date End Date Hermes Ramirez MD [address] [address] PCP - General Family Medicine 05/09/18 documented as of this encounter
--- OUTSIDE RECORDS SUMMARY | 2024-03-20 18:03 | XMS_ITS | Encounter Summary ---
Author Organization [employer] Care Team Providers Care Help Desk Coordinator Name Role Phone Hermes Ramirez MD Primary Care Provider +1 [phone] Encounter Details Date Type Department Care Team [...] documented as of this encounter Care Teams Help Desk Coordinator Relationship Specialty Start Date End Date Hermes Ramirez MD [address] [facility] [address] [place] [address] PCP - General Family Medicine 05/09/18 documented as of this encounter
--- OUTSIDE RECORDS SUMMARY | 2024-03-20 18:03 | XMS_ITS | Encounter Summary ---
Author Organization [facility] Address [address] [place] [address] Phone Care Team Providers Care Distance Learning Program Coordinator Name Role Phone Hermes Ramirez MD Primary Care Provider +1 [phone] Reason for Visit * Reason Onset Date Comments Prior Authorization 07/30/2021 Robinson Encounter Details Date Type Department Care Team (Late st Contact Info) Description 07/30/2021 Telephone [facility] Case Management [address] [place] [address] Mimi Cox N, REJECTOR, STREET INSPECTOR [address] [place] [address] Prior Authorization ([employer]) Social History [...] 6:11 AM CDT Robinson EDMOND received from [facility] [employer] [facility]. Patient has BCBS Medicaid, which covers as [...] documented as of this encounter Care Teams Distance Learning Program Coordinator Relationship Specialty Start Date End Date Hermes Ramirez MD [address] [address] PCP - General Family Medicine 05/09/18 documented as of this encounter
--- OUTSIDE RECORDS SUMMARY | 2024-03-20 18:03 | XMS_ITS | Encounter Summary ---
Author Organization [facility] Address [address] [place] [address] Phone Care Team Providers Care Grading Clerk Name Role Phone Hermes Ramirez MD Primary Care Provider [phone] Encounter Details Date Type Department Care Team (Late st Contact Info) Description 02/25/2020 Telephone [facility] [address] [place] [address] Teofilo Willard, QUALITY CONTROL CHEMIST, GUSSET MAKER [address] [place] [address] Social History Tobacco Use Types Packs/Day Years [...] COVID-19? No / Unsure 02/19/2020 1:27 PM ASSEMBLER SURGICAL GARMENT documented as of this encounter Miscellaneous Notes * Telephone Encounter - Freida Junior CMA - 02/25/2020 1:55 PM CST Per Rachel reviewed VNG pt needs to see neurologist(not ear related) Insurance Risk Surveyor attempted to phone pt multiple times, phone number listed has a restriction on numbers calling Insurance Risk Surveyor phoned pt contact(Charu) to relay message to call our office. Verbalized understanding and will relay message MBLER SURGICAL GARMENT documented in this encounter Plan of Treatment Not on file documented as of this encounter Visit Diagnoses Not on filedocumented in this encounter Additional Health Concerns Assessment Noted Time PHQ-9 Depression Total Score: 0 02/04/20 20 2:00 PM ASSEMBLER SURGICAL GARMENT documented as of this encounter Care Teams Grading Clerk Relationship Specialty Start Date End Date Hermes Ramirez MD [address] [place] [address] PCP - General Family Medicine 05/09/18 documented as of this encounter
--- OUTSIDE RECORDS SUMMARY | 2024-03-20 18:03 | XMS_ITS | Encounter Summary ---
Author Organization [employer] Care Team Providers Care Franchise Sales Manager Name Role Phone Hermes Ramirez MD Primary Care Provider + -[phone] Encounter Details Date Type Department Care Team [...] COVID-19? No / Unsure 02/19/2020 1:27 PM CIGAR HEAD PERFORATOR documented as of this encounter Plan of Treatment Not on file documented as of this encounter Visit Diagnoses Not on filedocumented in this encounter Additional Health Concerns Assessment Noted Time PHQ-9 Depression Total Score: 0 02/04/20 20 2:00 PM CIGAR HEAD PERFORATOR documented as of this encounter Care Teams Franchise Sales Manager Relationship Specialty Start Date End Date Hermes Ramirez MD [address] [address] PCP - General Family Medicine 05/09/18 documented as of this encounter
--- OUTSIDE RECORDS SUMMARY | 2024-03-20 18:03 | XMS_ITS | Encounter Summary ---
Author Organization [facility] Address [address] [place] [address] Phone Care Team Providers Care Method Consultant Name Role Phone Hermes Ramirez MD Primary Care Provider + -[phone] Encounter Details Date Type Department Care Team (Late st Contact Info) Description 12/08/2021 Telephone [facility] [address] [place] [address] Mimi Cox, PUMPING STATION ENGINEER, ACCOUNTS ADMINISTRATOR [address] [place] [address] Social History Tobacco Use Types [...] Notes * Telephone Encounter - Freida Junior, BLANKING MACHINE OPERATOR - 12/08/2021 1:47 PM CDT Per SUPERVISOR PICKING CREW Mimi Cox reviewed pt ear culture results received from [facility]. Pt can come intooffice every other day to have ketoconazole placed in ear (depending on how it takes) Shoe Cleaner spoke with pt and she would like clotrimazole drops sent to in [place] and she will use goodrx. RX sent [...] documented as of this encounter Care Teams Method Consultant Relationship Specialty Start Date End Date Hermes Ramirez MD [address] [facility] [address] [place] [address] PCP - General Family Medicine 05/09/18 documented as of this encounter
--- OUTSIDE RECORDS SUMMARY | 2024-03-20 18:03 | XMS_ITS | Encounter Summary ---
Author Organization [employer] Care Team Providers Care Facility Security Officer Name Role Phone Hermes Ramirez MD Primary Care Provider +1 [phone] Encounter Details Date Type Department Care Team [...] documented as of this encounter Care Teams Facility Security Officer Relationship Specialty Start Date End Date Hermes Ramirez MD [address] [address] PCP - General Family Medicine 05/09/18 documented as of this encounter
--- OUTSIDE RECORDS SUMMARY | 2024-03-20 18:03 | XMS_ITS | Encounter Summary ---
Author Organization [employer] Care Team Providers Care Gasoline Pump Installer Name Role Phone Hermes Ramirez MD Primary Care Provider + -[phone] Encounter Details Date Type Department Care Team [...] documented as of this encounter Care Teams Gasoline Pump Installer Relationship Specialty Start Date End Date Hermes Ramirez MD [address] [address] PCP - General Family Medicine 05/09/18 documented as of this encounter
--- OUTSIDE RECORDS SUMMARY | 2024-03-20 18:03 | XMS_ITS | Encounter Summary ---
Author Organization [facility] Address [address] [place] [address] Phone Care Team Providers Care Rail Signal Worker Name Role Phone Hermes Ramirez MD Primary Care Provider +1 [phone] Encounter Details Date Type Department Care Team (Latest Contact Info) Description 12/06/2021 1:15 PM CDT Audiology Tech Visit [facility] [address] [place] [address] Audiology, Enta ETD (Eustachian tube [...] * AUDIOLOGY PROCEDURE (12/06/2021) us Mimi Cox AGENCY OPERATOR, DIETITIAN TEACHER GEN ORDERS Final Result documented in this encounter Visit Diagnoses Diagnosis ETD (Eustachian tube dysfunction), bilateral- Primary Otomycosis of both ears Conductive hearing loss of both ears Conductive hearing loss, bilateral documented in this encounter Additional Health Concerns Assessment Noted Time PHQ-9 Depression Total Score: 0 01/21/20 21 2:00 PM CDT documented as of this encounter Care Teams Rail Signal Worker Relationship Specialty Start Date End Date Hermes Ramirez MD [address] [place] [id number] PCP - General Family Medicine 05/09/18 documented as of this encounter
--- OUTSIDE RECORDS SUMMARY | 2024-03-20 18:03 | XMS_ITS | Encounter Summary ---
Author Organization [facility] Address [address] [place] [address] Phone Care Team Providers Care Credit Report Checker Name Role Phone Hermes Ramirez MD Primary Care Provider +1 [phone] Reason for Visit * Reason Onset Date Comments Prior Authorization 12/17/2019 [employer] ne prior authorization Encounter Details Date Type Department Care Team (Late st Contact Info) Description 12/17/2019 Telephone [facility] Case Management [address] [place] [address] Teofilo Willard, ASSOCIATE PRODUCT INTEGRITY ENGINEER, RECORDER OF DEEDS [address] [place] [address] Prior Authorization ([employer] prior authorization) Social History [...] CDT Med Prior Auth: Received request from [employer] for Prior Auth of Desoximetasone Request submitted to [employer] IROCKE Batista: [id number] Awaiting response, Will update as new information is available. Call me for any questions [phone]. documented in this encounter Plan of Treatment Not on file documented as of this encounter Visit Diagnoses Not on filedocumented in this encounter Additional Health Concerns Assessment Noted Time PHQ-9 Depression Total Score: 0 05/09/19 19 3:00 PM SUPERVISOR PIPE FINISHING documented as of this encounter Care Teams Credit Report Checker Relationship Specialty Start Date End Date Hermes Ramirez MD [address] [facility] [address] [place] [address] PCP - General Family Medicine 05/09/18 documented as of this encounter
--- OUTSIDE RECORDS SUMMARY | 2024-03-20 18:03 | XMS_ITS | Encounter Summary ---
Author Organization [employer] Care Team Providers Care Plant Hr Manager Name Role Phone Hermes Ramirez MD Primary Care Provider + -[phone] Encounter Details Date Type Department Care Team [...] documented as of this encounter Care Teams Plant Hr Manager Relationship Specialty Start Date End Date Hermes Ramirez MD [address] [address] PCP - General Family Medicine 05/09/18 documented as of this encounter
--- OUTSIDE RECORDS SUMMARY | 2024-03-20 18:03 | XMS_ITS | Encounter Summary ---
Author Organization [facility] Address [address] [place] [address] Phone Care Team Providers Care Steam Press Tender Name Role Phone Hermes Ramirez MD Primary Care Provider +1 [phone] Encounter Details Date Type Department Care Team (Latest Contact Info) Description 02/19/2020 1:15 PM ISOTOPE HYDROLOGIST Audiology Tech Visit [facility] [address] [place] [address] Dizziness (Primary Dx) Discharge Disposition: [...] COVID-19? No / Unsure 02/19/2020 1:27 PM ISOTOPE HYDROLOGIST documented as of this encounter Progress Notes * Lizbeth Herrera AUD - 02/19/2020 1:15 PM CST VNG completed to assess for vestibular dysfunction as primary complaint is dizziness. See report for details. Testing requested by Dilip Willard APRN OPE HYDROLOGIST documented in this encounter Plan of Treatment Not on file documented as of this encounter Procedures Procedure Name Priority Date/Time Associated Diagnosis Comments AUDIOLOGY PROCEDURE Routine 02/19/2020 Dizziness documented in this encounter Results * AUDIOLOGY PROCEDURE (02/19/2020) Teofilo Willard APRN, SAUSAGE CUTTER GEN ORDERS Fi nal Result documented in this encounter Visit Diagnoses Diagnosis Dizziness- Primary Dizziness and giddiness documented in this encounter Additional Health Concerns Assessment Noted Time PHQ-9 Depression Total Score: 0 02/04/20 20 2:00 PM ISOTOPE HYDROLOGIST documented as of this encounter Care Teams Steam Press Tender Relationship Specialty Start Date End Date Hermes Ramirez MD [address] [address] PCP - General Family Medicine 05/09/18 documented as of this encounter
--- OUTSIDE RECORDS SUMMARY | 2024-03-20 18:03 | XMS_ITS | Encounter Summary ---
Author Organization [facility] Address [address] [place] [address] Phone Care Team Providers Care Search Engine Optimization Specialist Name Role Phone Hermes Ramirez MD Primary Care Provider + -[phone] Encounter Details Date Type Department Care Team (Late st Contact Info) Description 01/20/2021 Telephone [facility] [address] [place] [address] Eliceo Craft MD [address] [place] [address] Social History Tobacco Use Types [...] documented as of this encounter Care Teams Search Engine Optimization Specialist Relationship Specialty Start Date End Date Hermes Ramirez MD [address] [place] [address] PCP - General Family Medicine 05/09/18 documented as of this encounter
--- OUTSIDE RECORDS SUMMARY | 2024-03-20 18:03 | XMS_ITS | Encounter Summary ---
Author Organization [employer] Care Team Providers Care Fiberglass Roller Name Role Phone Hermes Ramirez MD Primary Care Provider + -[phone] Encounter Details Date Type Department Care Team [...] Date Hermes Ramirez MD [address] [address] PCP - General Family Medicine 05/09/18 documented as of this encounter
--- OUTSIDE RECORDS SUMMARY | 2024-03-20 18:03 | XMS_ITS | Encounter Summary ---
Author Organization [facility] Address [address] [place] [address] Phone Care Team Providers Care Cleaning Manager Name Role Phone Hermes Ramirez MD Primary Care Provider [phone] Reason for Visit * Reason Comments Ear Pain ear fungus Encounter Details Date Type Department Care Team (Late st Contact Info) Description 07/29/2021 1:45 PM CDT Office Visit [facility] [address] [place] [address] Mimi Cox N, COPY WORKER, SHOPPING CENTRE MANAGER [address] [place] [address] Chronic eczematous otitis externa of [...] receive an e-mail from a company called [employer]. This is an anonymous survey of approximately [...] Age: 40 y.o. : 1980 Encounter Dept: [facility] Encounter Date: 07/29/2021 C: Jessee Jones [...] a total of five to seven days. [id number] [phone] [id number] HISTORY OF PRESENT ILLNESS: Elsa Browne is [...] a positive Rinne bilaterally. Mimi Cox DNP, LAUNDERER HAND, SANITARY CHEMIST-BC/[facility] Vitals, Current Meds & Allergies: Vitals: 07/29/21 1352 Pulse: 76 SpO2: 99% Weight: 169 lb (76.7 kg) Body surface area is 1.83 meters squared. Body mass index is 30.91 kg/m??. Outpatient Encounter Medications as of 07/29/2021 Medication Sig Dispense Refill ??? amLODIPine (NORVASC) 10 MG Tablet Take 10 mg by mouth daily. ??? iinponlije-ioivbokuofivo-ammebqsy (FIORICET, ESGIC) 50-325-40 MG Tablet TAKE 1-2 [...] 01/10/2018 Procedure: LASER ABLATION CONDYLOMA GENITAL AREA (#[id number]); Surgeon: Umesh Washington MD; Location: [facility] OR; Service: Obstetrics Gynecology ??? ENDOMETRIAL ABLATION ??? FINGER NAIL SURGERY Right 02/21/2018 Procedure: RIGHT LONG FINGER NAIL BED PARTIAL ABLATION; Surgeon: Johnson Hernandez MD; Location: [facility]; Service: Orthopaedic ??? FINGER NAIL SURGERY Right 09/14/2018 Procedure: RIGHT THUMB ANDLONG FINGER PARTIAL NAILBED ABLATION; Surgeon: Johnson Hernandez MD; Location: [facility]; Service: Orthopaedic ??? INGUINAL HERNIA REPAIR Bilateral [...] Orde r Schedule BINOCULAR MICROSCOPY SEPARATE PROCEDURE MN Charge Routine Chronic eczematous otitis externa of both ears Chronic otorrhea, right Ordered: 07/29/2021 documented as of this encounter Visit Diagnoses Diagnosis Chronic eczematous otitis externa of both ears- Primary Chronic otorrhea, right documented in this encounter Additional Health Concerns Assessment Noted Time PHQ-9 Depression Total Score: 0 01/21/20 21 2:00 PM CDT documented as of this encounter Care Teams Cleaning Manager Relationship Specialty Start Date End Date Hermes Ramirez MD [address] [facility] [address] [place] [id number] PCP - General Family Medicine 05/09/18 documented as of this encounter
--- OUTSIDE RECORDS SUMMARY | 2024-03-20 18:03 | XMS_ITS | Encounter Summary ---
Author Organization [facility] Address [address] [place] [address] Phone Care Team Providers Care Scrap Baller Name Role Phone Hermes Ramirez MD Primary Care Provider + [phone] Encounter Details Date Type Department Care Team (Late st Contact Info) Description 08/02/2021 Telephone [facility] [address] [place] [address] Mimi Cox N, BINDERY CHIEF, SLATER APPRENTICE [address] [place] [address] Social History Tobacco Use Types [...] Junior CMA - 08/10/2021 9:16 AM CDT Food And Beverage Intern left message for pt to call our office with update * Telephone Encounter - Freida Junior CMA - 08/02/2021 1:19 PM CDT Food And Beverage Intern left message for pt to phone our [...] documented as of this encounter Care Teams Scrap Baller Relationship Specialty Start Date End Date Hermes Ramirez MD [address] [facility] [address] [place] [address] PCP - General Family Medicine 05/09/18 documented as of this encounter
--- OUTSIDE RECORDS SUMMARY | 2024-03-20 18:03 | XMS_ITS | Encounter Summary ---
Author Organization [facility] Address [address] [place] [address] Phone Care Team Providers Care Chairman President And Chief Executive Officer Name Role Phone Hermes Ramirez MD Primary Care Provider [phone] Encounter Details Date Type Department Care Team (Latest Contact Info) Description 12/16/2019 10:15 AM CDT Audiology Tech Visit [facility] [address] [place] [address] Audiology, Enta History of recurrent [...] * AUDIOLOGY PROCEDURE (12/16/2019) Teofilo Willard APRN, FLIGHT CONTROLS ENGINEER GEN ORDERS Fi nal Result documented in this encounter Visit Diagnoses Diagnosis History of recurrent ear infection- Primary Hearing exam without abnormal findings documented in this encounter Additional Health Concerns Assessment Noted Time PHQ-9 Depression Total Score: 0 05/09/19 19 3:00 PM APPLICATION DESIGN ENGINEER documented as of this encounter Care Teams Chairman President And Chief Executive Officer Relationship Specialty Start Date End Date Hermes Ramirez MD [address] [facility] [address] [place] [address] PCP - General Family Medicine 05/09/18 documented as of this encounter
--- OUTSIDE RECORDS SUMMARY | 2024-03-20 18:03 | XMS_ITS | Encounter Summary ---
Author Organization [facility] Address [address] [place] [address] Phone Care Team Providers Care Sales Center Associate Name Role Phone Hermes Ramirez MD Primary Care Provider [phone] Reason for Visit * Reason Comments Hearing Loss Encounter Details Date Type Department Care Team (Late st Contact Info) Description 01/20/2021 2:30 PM CDT Office Visit [facility] [address] [place] [address] Mimi Cox N, ELECTRONIC INDUCTION HARDENER, MATERIAL ASSISTANT [address] [place] [address] Chronic eczematous otitis externa of [...] receive an e-mail from a company called [employer]. This is an anonymous survey of approximately [...] to the meatus bilaterally. Mimi Cox, DNP, POWDER COAT PAINTER-BC/sdt Vitals, Current Meds & Allergies: Vitals: 01/20/21 1440 Pulse: 88 SpO2: 98% Weight: 178 lb (80.7 kg) Height: 5' 2 (1.575 m) Body surface area is 1.88 meters squared. Body mass index is 32.56 kg/m??. Outpatient Encounter Medications as of 01/20/2021 Medication Sig Dispense Refill ??? amLODIPine (NORVASC) 10 MG Tablet Take 10 mg by mouth daily. ??? yrllovmvgc-rkcjoplfvayjn-qnjwznoa (FIORICET, ESGIC) 50-325-40 MG Tablet TAKE 1-2 TABLETS BY MOUTH EVERY 8 HOURS NEEDED FOR HEADACHE ??? [DISCONTINUED] butorphanol (STADOL) 10 MG/ML Solution 1 [place] by Nasal route every 4 hours as [...] 01/10/2018 Procedure: LASER ABLATION CONDYLOMA GENITAL AREA (#[id number]); Surgeon: Umesh Washington MD; Location: [facility] OR; Service: Obstetrics Gynecology ??? ENDOMETRIAL ABLATION ??? FINGER NAIL SURGERY Right 02/21/2018 Procedure: RIGHT LONG FINGER NAIL BED PARTIAL ABLATION; Surgeon: Johnson Hernandez MD; Location: [facility]; Service: Orthopaedic ??? FINGER NAIL SURGERY Right 09/14/2018 Procedure: RIGHT THUMB ANDLONG FINGER PARTIAL NAILBED ABLATION; Surgeon: Johnson Hernandez MD; Location: [facility]; Service: Orthopaedic ??? INGUINAL HERNIA REPAIR Bilateral [...] Orde r Schedule BINOCULAR MICROSCOPY SEPARATE PROCEDURE LA Charge Routine Chronic eczematous otitis externa of both ears Ordered: 01/20/2021 documented as of this encounter Visit Diagnoses Diagnosis Chronic eczematous otitis externa of both ears- Primary documented in this encounter Additional Health Concerns Assessment Noted Time PHQ-9 Depression Total Score: 0 01/21/20 21 2:00 PM CDT documented as of this encounter Care Teams Sales Center Associate Relationship Specialty Start Date End Date Hermes Ramirez MD [address] [place] [address] PCP - General Family Medicine 05/09/18 documented as of this encounter
--- OUTSIDE RECORDS SUMMARY | 2024-03-20 18:03 | XMS_ITS | Encounter Summary ---
Author Organization [facility] Address [address] [place] [address] Phone Care Team Providers Care Onion Tier Name Role Phone Hermes Ramirez MD Primary Care Provider [phone] Encounter Details Date Type Department Care Team (Late st Contact Info) Description 11/29/2021 Telephone [facility] [address] [place] [address] Mimi Cox N, PROCESSING CLERK, LATIN AMERICAN STUDIES DIRECTOR [address] [place] [address] Social History Tobacco Use Types [...] Junior CMA - 11/30/2021 8:44 AM CDT Knockout Man scheduled pt for f/u visit. * Telephone [...] as of this encounter Care Teams Onion Tier Relationship Specialty Start Date End Date Hermes Ramirez MD [address] [address] PCP - General Family Medicine 05/09/18 documented as of this encounter
--- OUTSIDE RECORDS SUMMARY | 2024-03-20 18:04 | XMS_ITS | Continuity of Care Document ---
Author Organization [facility] Address [address] [place] [address] Phone Care Team Providers Care Encoding Clerk Name Role Phone Santana Timmons MD Unavailable Unavailable Procedures Procedure Date Subsequent Hospital Care Initial Inpatient Consult Advance Directives Directive Yes / No Effective Date File Name No Information Encounters Encounter Description Practice Location Reason(s) For Visit Diagnoses Date Provider Providers Copied on Encounter Subsequent Hospital Care [facility], [address] [place] [address], [id number], tel:[phone] [facility] No Information 1 Shanelle Dillon. [address] [place] [address], [id number], [place]. tel:[phone] Referring Provider: Hermes Ramirez , [address] [place] [address], [id number]. tel:[phone] Initial Inpatient Consult [facility], [address] [place] [address], [id number], tel:[phone] [facility] No Information Shanelle Dillon. [address] [place] [address], [id number], . tel:[phone] Referring Provider: Hermes Ramirez [address], [address]. tel:[phone] Family History Family Member Type Diagnosis Age At Onset No Information Payers Payer name Insurance type Covered republican ID Authoriza tiyoan(s) [facility] [id number] Social History Type Description Quantity Date Captured Comments Sex Female Smoking Status No Information Chief Complaint And Reason For Visit No Information History Of Present Illness Encounter Date Complaint History Of Prese nt Illness No Information Instructions Date Instruction Additional Infor mation No Information Assessments Type Assessment Date No Information
--- OUTSIDE RECORDS SUMMARY | 2024-03-20 18:04 | XMS_ITS | Encounter Summary ---
Author Organization [facility] Care Team Providers Care Supervisor Computer Operations Name Role Phone Hermes Ramirez MD Primary Care Provider [phone] Encounter Details Date Type Department Care Team [...] Total Score: 0 05/09/19 19 3:00 PM ANTHROPOLOGICAL LINGUIST documented as of this encounter Care Teams Supervisor Computer Operations Relationship Specialty Start Date End Date Hermes Ramirez MD [address] [address] PCP - General Family Medicine 05/09/18 documented as of this encounter
--- OUTSIDE RECORDS SUMMARY | 2024-03-20 18:04 | XMS_ITS | Encounter Summary ---
Author Organization [facility] Address [address] [place] [address] Phone Care Team Providers Care Keyboard Instrument Tuner Name Role Phone Hermes Ramirez MD Primary Care Provider [phone] Reason for Visit * Reason Comments Ear Drainage Encounter Details Date Type Department Care Team (Late st Contact Info) Description 12/16/2019 9:30 AM CDT Office Visit [facility] [address] [place] [address] Teofilo Willard, EXPLOSIVES OPERATOR, SCREW REMOVER [address] [place] [address] Eczema of external ear, bilateral (Primary Dx); [...] receive an e-mail from a company called [employer]. This is an anonymous survey of approximately [...] Age: 39 y.o. : 1980 Encounter Dept[place] [facility] Encounter Date: 12/16/2019 Chief Complaint Patient presents with ??? Ear Drainage Impression: 1. Eczema of bilateral external auditory canal 2. The bilateral external otitis 3. Bilateral TMJ History of Present Illness: Elsa Browne is a 39 y.o. female with a history of a liver transplant. She is also under the care of a painter maintenance in [facility] period she comes in today complaining of [...] tymps with normal volumes. Teofilo Willard DNP, EXPLOSIVES OPERATOR, BUDGET EXAMINER-BC Vitals, Current Meds & Allergies: Vitals: 12/16/19 1003 Pulse: 66 SpO2: 99% Weight: 170 lb (77.1 kg) Body surface area is 1.84 meters squared. Body mass index is 31.09 kg/m??. Outpatient Encounter Medications as of 12/16/2019 Medication Sig Dispense Refill ??? butorphanol (STADOL) 10 MG/ML Solution 1 [place] by Nasal route every 4 hours as [...] 01/10/2018 Procedure: LASER ABLATION CONDYLOMA GENITAL AREA (#[id number]); Surgeon: Umesh Washington MD; Location: [facility] OR; Service: Obstetrics Gynecology ??? ENDOMETRIAL ABLATION ??? FINGER NAIL SURGERY Right 02/21/2018 Procedure: RIGHT LONG FINGER NAIL BED PARTIAL ABLATION; Surgeon: Johnson Hernandez MD; Location: [facility]; Service: Orthopaedic ??? FINGER NAIL SURGERY Right 09/14/2018 Procedure: RIGHT THUMB ANDLONG FINGER PARTIAL NAILBED ABLATION; Surgeon: Johnson Hernandez MD; Location: [facility]; Service: Orthopaedic ??? INGUINAL HERNIA REPAIR Bilateral [...] BINOCULAR MICROSCOPY SEPARATE PROCEDURE MN Charge Routine Eczema of external ear, bilateral [...] Total Score: 0 05/09/19 19 3:00 PM PHARMACY INTAKE TECHNICIAN documented as of this encounter Care Teams Keyboard Instrument Tuner Relationship Specialty Start Date End Date Hermes Ramirez MD [address] [place] [id number] PCP - General Family Medicine 05/09/18 documented as of this encounter
== END 2024-03-13 17:10 | disposition home or self-care (01) ==
PROVIDERS: Emergency Provider Emergency Medicine
DX: R51.9 Headache, unspecified (principal); Z94.4 Liver transplant status; Z94.0 Kidney transplant status
CPT/HCPCS: 96361; 96374; 96375; 96376; 99284; J0780; J1171; J1200; J7040

== ENCOUNTER 2024-06-26 14:59 | Emergency (ER) | payer OTHER, SELFPAY ==
[2024-06-26 14:59] VITALS: BP 153/90; PULSE 71; RESP 18; TEMP 36.8; O2SAT 100
--- NOTE | 2024-06-26 15:09 | ED_ITS ---
HPI - Headache General Chief Complaint: Headache Stated Complaint: back pain Time Seen by Provider: 06/26/24 15:09 Source: patient Mode of arrival: ambulatory Limitations: no limitations History of Present Illness HPI Narrative: 43-year-old female with a history of biliary atresia status post [place],liver transplant x2 and kidney transplant x1, DJD, sciatica/ Spinal stenosis, migraine presents to the ED with -- right-sided headache with nausea and photophobia. this is similar to her usual migraine attacks. No fever or chills. -- low back pain- which is chronic and persistent. She has a history of spinal stenosis and claudication. The pain radiates to the buttocks. no paresthesias or motor loss in lower extremities. No fever MD elicited complaint: headache Pertinent past history: migraines Onset (ago): day(s) ( 1 day) Onset description: gradually Location: right Quality & Timing: throbbing Exacerbating factors: none Relieving factors: nothing Associated symptoms: nausea and photophobia Treatments prior to arrival: none Related Data Allergies Allergy/AdvReac Type Severity Reaction Status Date / Time erythromycin base Allergy Intermediate Rash Verified 06/26/24 15:11 gentamicin Allergy Intermediate Rash Verified 06/26/24 15:11 ketorolac (From Toradol) AdvReac Severe Abdominal Verified 06/26/24 15:11 Pain NSAIDS (Non-Steroidal AdvReac Severe Abdominal Verified 06/26/24 15:11 Anti-Inflamma Pain Review of Systems Review of Systems: All systems reviewed & are unremarkable except as noted in HPI and below Constitutional: Constitutional: Reports as per HPI and Reports no additional constitutional complaints Eyes: Eyes: Reports as per HPI, Reports no additional eye complaints and Repo rts photophobia ENT: Reports system reviewed and no additional complaints, except as documented and Reports as per HPI Cardiovascular: Cardiovascular: Reports as per HPI and Reports no additional cardiovascular complaints Respiratory: Respiratory: Reports as per HPI and Reports no additional respiratory complaints Gastrointestinal: Gastrointestinal: Reports as per HPI, Reports no additional gastrointestinal complaints and Reports nausea Genitourinary: Genitourinary: Reports no additional female genitourinary complaints and Reports as per HPI Musculoskeletal: Musculoskeletal: Reports no additional musculoskeletal complaints, Reports as per HPI and Reports back pain Integumentary/Breasts: Skin/Breast: Reports system reviewed and no additional complaints, except as docu and Reports as per HPI Neurologic: Reports system reviewed and no additional complaints, except as documented and Reports as per HPI Psychiatric: Psychiatric: Reports no additional psychiatric complaints and Reports as per HPI Endocrine: Endocrine: Reports no additional endocrine complaints and Reports as per HPI Hematologic/Lymphatic: Hematologic/Lymphatic: Reports no additional hematologic/lymphatic complaints and Reports as per HPI Allergic/Immunologic: Allergic/Immunologic: Reports no additional allergic/immunologic complaints and Reports as per HPI [facility] Past Medical History Medical History (Updated 06/26/24 @ 16:43 by Henry José MD) Anxiety and depression Spinal stenosis DJD (degenerative joint disease) Migraine Biliary atresia Surgical History Surgical History (Updated 06/26/24 @ 15:25 by Henry José MD) Liver transplant recipient Exam Narrative: vital stable Const: General: no acute distress Nutritional Appearance: well nourished Orientation/consciousness: patient oriented x3 Limitations: no limitations HENMT: Head: normal to inspection Ears: external ears normal Face/Nose/Sinus: Normal external nose present Face and sinus: normal facial exam Mouth: Yes Normal oral and palatal mucosa present Throat: posterior oropharynx normal Eyes: Conjunctivae: conjunctivae normal Pupils: Equal, round and reactive pupils present EOM: EOMs intact bilaterally Direct Ophthalmoscopy: photophobia Neck: Neck: normal visual inspection, no lymphadenopathy and no meningeal signs Chest: Chest palpation & inspection: normal inspection of the chest Resp: Effort & Inspection: normal respiratory effort Auscultation: clear to auscultation bilaterally Cardio: Rate: regular rate Rhythm: regular rhythm GI: GI Palp: Yes Soft to palpation Auscultation: normal bowel sounds : General: Yes no CVA tenderness Back/Spine/Pelvis: Back: no CVA tenderness Skin: General skin exam: normal color Rashes: no rashes Wounds: no wou nds Neuro: General: patient oriented x3, moves all extremities, no meningeal signs, no focal motor deficits and CN's II-XI intact bilaterally Cranial nerves: Yes Nystagmus not present Speech: normal speech Gait exam (Neuro): Normal gait present Extrem: General: normal to inspection and no clubbing, cyanosis or edema Psych: Mental Status: mental status grossly normal Affect: normal affect Course Course Emergency Course: Headache-- migraine headache-- pain improved with IV fluids, Dilaudid and Zofran chronic low back pain Vital Signs Vital signs: Vital Signs Temperature 36.8 C 06/26/24 14:59 Pulse Rate 71 06/26/24 14:59 Respiratory Rate 18 06/26/24 14:59 Blood Pressure 153/90 H 06/26/24 14:59 Pulse Oximetry 100 06/26/24 14:59 Oxygen Delivery Room Air 06/26/24 14:59 Temperature 36.9 C 06/26/24 16:34 Pulse Rate 71 06/26/24 16:34 Respiratory Rate 16 06/26/24 16:34 Blood Pressure 137/81 06/26/24 16:34 Pulse Oximetry 93 06/26/24 16:34 Oxygen Delivery Room Air 06/26/24 16:34 MDM - Headache MDM Narrative Medical decision making narrative: migraine headache chronic low back pain Differential Diagnosis Differential diagnosis: Likely tension headache and sinusitis Discharge Plan Discharge Clinical Impression: Migraine Qualifiers: Migraine type: unspecified Status migrainosus presence: without status migrainosus Intractability: not intractable Qualified Code(s): G43.909 - Migraine, unspecified, not intractable, without status migrainosus Chronic low back pain Qualifiers: Back pain laterality: unspecified Sciatica presence: without sciatica Qualified Code(s): M54.50 - Low back pain, unspecified Patient Disposition: Home Condition: Stable Instructions: Antibiotic Form, Migraine Headache (ED), Chronic Back Pain (DC) Patient Language: Citizen Of The [place] Follow-up/Referrals: UNKNOWN,DOCTOR [Non-Staff] - Time of Disposition: 16:43
[2024-06-26] MEDS: LACTATED RINGERS 1,000 ML 999 ML IV CONT (15:39)
[2024-06-26] MEDS: ONDANSETRON INJ 4 MG/2 ML VIAL IV PUSH (15:41)
[2024-06-26] MEDS: HYDROmorphone HCL INJ (*CRX) 2 MG/ML VIAL 0.5 MG IV PUSH ×2 (15:41→16:16)
[2024-06-26 16:00] VITALS: BP 130/84; PULSE 78; RESP 16; O2SAT 95
[2024-06-26 16:22] VITALS: BP 137/88; PULSE 71; RESP 14; O2SAT 100
--- OUTSIDE RECORDS SUMMARY | 2024-06-26 16:32 | XMS_ITS | Encounter Summary ---
Author Organization [facility] Address [facility] [place] [address] Care Team Providers Care Member Of The Legislative Council Name Role Phone Ashley ZUNIGA MD, Hermes Perez Primary Care Provid er Lyly Fiore NP Primary Care Provider [phone] Encounter Details Date Type Department Care Team (Late st Contact Info) Description 02/22/2024 Hospital Follow-up Call [facility] [address] [place] [address] Zulma Ardon, RN Social History Tobacco Use [...] time in the past 12 m [facility], were you homeless or living in a [facility] (including now)? No 02/20/2024 Comments No Sex and Gender Information Value Date Recorded Sex Assigned at Female 04/05/2024 4:26 PM GLASS BEVELLER Legal Sex Female 9:15 PM GLASS BEVELLER Gender Identity Not on file Sexual Orientation [...] Assessment Author Status No 02/20/2024 4:08 AM GLASS BEVELLER Kimmy Hayes RN Active documented as of this encounter Mental Status * Because of a physical, mental, or emotional condition, do you have serious difficulty concentrating, remembering, or making decisions? Answer Entry Date Author Status No 02/20/2024 4:08 AM GLASS BEVELLER Kimmy Hayes RN Active documented in this encounter Plan of Treatment Not on file documented as of this encounter Visit Diagnoses Not on filedocumented in this encounter Additional Health Concerns Infection Onset Date Last Indicated Resolved Time Rhinovirus 02/16/2024 02/16/2024 02/26/2024 12:3 2 AM GLASS BEVELLER documented as of this encounter Care Teams Member Of The Legislative Council Relationship Specialty Start Date End Date Hermes Ramirez III, MD [address] [address] PCP - General FAMILY PRACTICE 06/20/17 04/13/24 Lyly Fiore NP [address] [place] [address] PCP - General NURSE PRACTITIONER 04/14/24 documented as of this encounter
--- OUTSIDE RECORDS SUMMARY | 2024-06-26 16:32 | XMS_ITS | Continuity of Care Document ---
Author Organization [facility] Address [address] [place] [address] Phone Care Team Providers Care Inspector Bullet Slugs Name Role Phone Santana Timmons MD Unavailable Unavailable Procedures Procedure Date Subsequent Hospital Care Initial Inpatient Consult Advance Directives Directive Yes / No Effective Date File Name No Information Encounters Encounter Description Practice Location Reason(s) For Visit Diagnoses Date Provider Providers Copied on Encounter Subsequent Hospital Care [facility], [address] [place] [address], [id number], tel:[phone] [facility] No Information 1 Shanelle Dillon. [address] [place] [address], [id number], [place]. tel:[phone] Referring Provider: Hermes Ramirez , [address] [place] [address], [id number]. tel:[phone] Initial Inpatient Consult [facility], [address] [place] [address], [id number], tel:[phone] [facility] No Information Shanelle Dillon. [address] [place] [address], [id number], . tel:[phone] Referring Provider: Hermes Ramirez [address], [address]. tel:[phone] Family History Family Member Type Diagnosis Age At Onset No Information Payers Payer name Insurance type Covered democrat ID Authoriza tiyoan(s) [facility] [id number] Social History Type Description Quantity Date Captured Comments Sex Female Smoking Status No Information Chief Complaint And Reason For Visit No Information History Of Present Illness Encounter Date Complaint History Of Prese nt Illness No Information Instructions Date Instruction Additional Infor mation No Information Assessments Type Assessment Date No Information
--- OUTSIDE RECORDS SUMMARY | 2024-06-26 16:32 | XMS_ITS | Clinical Summary ---
Author Organization [facility] Address [facility] [place] [address] Care Team Providers Care Employee Health Rn Name Role Phone ChelsyLyly schaefer ELISA Primary Care Provider [phone] Allergies Active Allergy Reactions Criticality Noted Date [...] by mouth 2 (two) times a day. 0 Active amLODIPine (NORVASC) 5 MG tablet Take 1 tablet (5 mg total) by mouth daily. Active gabapentin (NEURONTIN) 600 MG tablet Take 1 tablet (600 mg total) by mouth 2 (two) times daily. Active LORazepam (ATIVAN) 0.5 MG tablet Take 1 tablet (0.5 mg total) by mouth. 2 Active topiramate (TOPAMAX) 100 MG tablet Take 1 tablet (100 mg total) by mouth 2 (two) times daily. 2 Active predniSONE (DELTASONE) 5 mg tablet Take 1 tablet (5 mg total) by mouth daily. Active albuterol sulfate HFA 108 (90 Base) MCG/ACT inhaler Inhale 2 puffs into the lungs every 4 (four) hours as needed for Wheezing or Shortness of breath. 6.7 g 4 Active azaTHIOprine (IMURAN) 50 MG tablet Take 1 tablet (50 mg total) by mouth daily. Active ENVARSUS XR 4 MG TABLET SR 24 HR Take 4 mg by mouth daily. Takes with 1 mg tablets x 3 (total dose is 7 mg) 4 Active ENVARSUS XR 1 MG TABLET SR 24 HR tablet Take 3 tablets (3 mg total) by mouth every morning before breakfast. Takes with 4 mg tablet for total of 7 mg daily 4 Active venlafaxine (EFFEXOR) 37.5 MG tablet Take 1 tablet (37.5 mg total) by mouth daily. 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 Gastric ulcer 10/24/2016 Pancreatitis ([facility]) 10/24/2016 Chronic kidney disease 10/24/2016 Anemia, unspecified 05/04/2012 Benign gestational thrombocytopenia ([facility]) History of cone biopsy of cervix 01/04/2012 History of liver transplant ([facility]) Acute pharyngitis 11/19/2010 Abdominal pain 11/13/2010 Aphthous ulcer 11/01/2010 Anxiety 07/21/2010 Encounters Date Type Department Care Team Description 05/13/2024 9:37 PM ROBOTIC WELDER - 05/13/2024 11:39 PM ROBOTIC WELDER Emergency [facility] [address] [place] [address] Beronica Lopez MD Headache Recurrent Or Know Dx Migraine Discharge Disposition: Home or Self Care (Routine Discharge) 05/13/2024 Travel 04/14/2024 6:08 AM ROBOTIC WELDER - 04/14/2024 10:04 AM ROBOTIC WELDER Emergency [facility] [address] [place] [address] Sierra Sen MD Ziebro, Zack Lovelace MD Back Pain Discharge Disposition: Home or Self Care (Routine Discharge) 04/14/2024 Travel 04/05/2024 4:31 PM ROBOTIC WELDER - 04/05/2024 5:05 PM ROBOTIC WELDER Emergency [facility] [address] [place] [address] [place] [address] Mona Galindo NP Headache Recurrent Or Know Dx Migraine Discharge Disposition: Home or Self Care (Routine Discharge) 04/05/2024 Travel from Last 3 Months Family History [...] medical appointments or from getting medications? No 12/0 05/2023 In the past 12 months, has [...] any time in the past 12 m [facility], were you homeless or living in a alf (including now)? No 02/20/2024 Comments No Sex and Gender Information Value Date Recorded Sex Assigned at Female 04/05/2024 4:26 PM ROBOTIC WELDER Legal Sex Female 9:15 PM ROBOTIC WELDER Gender Identity Not on file Sexual Orientation Not on file Last Filed Vital Signs Vital Sign Reading Time Taken Comments Blood Pressure 139/95 05/13/2024 10:40 PM ROBOTIC WELDER Pulse 67 05/13/2024 10:49 PM ROBOTIC WELDER Temperature 36.7 C (98.1 F) 05/13/2024 8:35 PM ROBOTIC WELDER Respiratory Rate 14 05/13/2024 8:38 PM ROBOTIC WELDER Oxygen Saturation 100% 05/13/2024 10:40 PM ROBOTIC WELDER Inhaled Oxygen Concentration - - Weight 89.9 kg (198 lb 3.1 oz) 05/13/2024 8:35 P M ROBOTIC WELDER Height 157.5 cm (5' 2 ) 05/13/2024 8:35 PM ROBOTIC WELDER Body Mass Index 36.25 05/13/2024 8:35 PM ROBOTIC WELDER Plan of Treatment Health Maintenance Due Date Last Done Comments Annual Physical 1985 COVID-19 Vaccine (#1) 10/04/1987 Pneumococcal Vaccine: Pediatrics (0 to 5 Years) and At-Risk Patients (6 to 64 Years) (1 of 2 - PCV) 1988 Hepatitis B Vaccines (3 of 3 - 19+ 3-dose series) 04/11/2018 11/10/2017, 10/09/2017, 10/09/2017 Mammogram Screening 2022 Cervical Cancer Screening Pap Smear (Age 30 [...] patient's age to complete this topic Meningococcal B Vaccine Aged Out No l onger eligible based on patient's age to complete this topic Meningococcal Vaccine Aged Out No carosn sarah eligible based on patient's age to complete this topic RSV Immunizations Under 20 Months Aged Out No longer eligible based on patient's age to complete this topic Procedures Procedure Name Priority Date/Time Associated Diagnosis Comments CT HEAD WO CON STAT 05/13/2024 11:06 PM ROBOTIC WELDER XR FOOT LT 3V STAT 04/14/2024 9:24 AM ROBOTIC WELDER XR FOOT RT 3V STAT 04/14/2024 9:24 AM ROBOTIC WELDER PRO-BRAIN NATRIURETIC PEPTIDE STAT 04/14/2024 7:09 AM ROBOTIC WELDER COMPREHENSIVE METABOLIC PANEL STAT 04/14/2024 7:09 AM ROBOTIC WELDER CBC W/DIFF AUTOMATED STAT 04/14/2024 7:09 AM ROBOTIC WELDER HUMAN PAPILLOMAVIRUS, HIGH-RISK TYPES Routine 06/20/2022 12:00 PM CDT CYTOPATH CERV/VAG THIN LAYER Routine 06/20/2022 7:46 AM CDT from Last 3 Months or Most Recently Relevant to Health Maintenance Results * CT HEAD WO CON (05/13/2024 11:06 PM ROBOTIC WELDER) Anatomical Region Laterality Modality Head Computed Tomogra phy 05/13/2024 11:0 8 PM ROBOTIC WELDER Impressions 05/13/2024 11:09 PM ROBOTIC WELDER IMPRESSION: 1. No definite CT evidence of acute intracranial abnormality, as above. Referred By: Interpreted By: Isaiah Becerra MD, 05/13/2024 11:08 PM Narrative 05/13/2024 11:09 PM ROBOTIC WELDER [address] [address] EXAMINATION: CT of the head CLINICAL HISTORY: Headache. Shoulder pain. COMPARISON: 06/21/2016 TECHNIQUE: CT examination of the head without contrast was performed with axial and multiplanar reformatted images obtained. A dose lowering technique was used for this procedure, which may include, but is not limited to, dose reduction technique, automated exposure control, the use of iterative reconstruction, and ALARA (As Low As Reasonably Achievable) / Image Gently techniques. FINDINGS: No acute intracranial hemorrhage, extra-axial collections, intracranial mass effect, or midline shift. Herrera-white matter differentiation grossly preserved. No definite CT evidence of acute territorial infarction, though MRI would be more sensitive. Ventricles and extra-axial/subarachnoid spaces are unremarkable. Calvarium unremarkable. Mastoid air cells and paranasal sinuses clear. Visualized orbits unremarkable. Procedure Note Isaiah Becerra MD - 05/13/[address] [address] EXAMINATION: CT of the head CLINICAL HISTORY: Headache. Shoulder pain. COMPARISON: 06/21/2016 TECHNIQUE: CT examination of the head without contrast was performed withaxial and multiplanar reformatted images obtained. A dose lowering technique was used for this procedure, which may include,but is not limited to, dose reduction technique, automated exposurecontrol, the use of iterative reconstruction, and ALARA (As Low AsReasonably Achievable) / Image Gently techniques. FINDINGS: No acute intracranial hemorrhage, extra-axial collections, intracranialmass effect, or midline shift. Herrera-white matter differentiation grosslypreserved. No definite CT evidence of acute territorial infarction, thoughMRI would be more sensitive. Ventricles and extra-axial/subarachnoidspaces are unremarkable. Calvarium unremarkable. Mastoid air cells andparanasal sinuses clear. Visualized orbits unremarkable. IMPRESSION: 1. No definite CT evidence of acute intracranial abnormality, as above. Referred By: Interpreted By: Isaiah Becerra MD, 05/13/2024 11:08 PM us Beronica Lopez MD CT Fin al Result * XR FOOT RT 3V (04/14/2024 9:24 AM ROBOTIC WELDER) Anatomical Region Laterality Modality Foot Radiographic Katy ging 04/14/2024 9:39 AM ROBOTIC WELDER Impressions 04/14/2024 9:41 AM ROBOTIC WELDER IMPRESSION: No fracture. Referred By: Interpreted By: Heriberto Betancourt MD, 04/14/2024 9:39 AM Narrative 04/14/2024 9:41 AM ROBOTIC WELDER [address] [place], [place] [address] Examination: XR FOOT RT 3V, XR FOOT LT 3V [id number] Exam time: 04/14/2024 9:09 AM Indication: PATIENT PRESENTS TO ER WITH COMPLAINT OF SPINE, BILATERAL HIP AND BILATERAL FOOT PAIN AFTER FALLING SOME MONTHS AGO. PATIENT WAS SEEN BY MD AND MRI WAS ORDERED. SHE WAS TOLD TO RETURN IF SYMPTOMS RETURN. Comparison: 11/27/2016 Findings: 3 views of the right foot and 3 views of the left foot. Small bone spur on the plantar surface of the left calcaneus. No right calcaneal spurring. No fracture or dislocation. No degenerative process. No arthropathy or joint loss. No erosive bony changes. No soft tissue swelling or gas or metal foreign body. Procedure Note Heriberto Betancourt MD - 04/14/[address] [place], [place] [address] Examination: XR FOOT RT 3V, XR FOOT LT 3V [id number] Exam time: 04/14/2024 9:09 AM Indication: PATIENT PRESENTS TO ER WITH COMPLAINT OF SPINE, BILATERAL HIPAND BILATERAL FOOT PAIN AFTER FALLING SOME MONTHS AGO. PATIENT WAS SEENBY AND MRI WAS ORDERED. SHE WAS TOLD TO RETURN IF SYMPTOMS RETURN. Comparison: 11/27/2016 Findings: 3 views of the right foot and 3 views of the left foot. Smallbone spur on the plantar surface of the left calcaneus. No rightcalcaneal spurring. No fracture or dislocation. No degenerative process.No arthropathy or joint loss. No erosive bony changes. No soft tissueswelling or gas or metal foreign body. IMPRESSION: No fracture. Referred By: Interpreted By: Heriberto Betancourt MD, 04/14/2024 9:39 AM Sierra Sen MD GENERAL IMAGING Final Result * XR FOOT LT 3V (04/14/2024 9:24 AM ROBOTIC WELDER) Anatomical Region Laterality Modality Foot Radiographic Katy ging 04/14/2024 9:39 AM ROBOTIC WELDER Impressions 04/14/2024 9:41 AM ROBOTIC WELDER IMPRESSION: No fracture. Referred By: Interpreted By: Heriberto Betancourt MD, 04/14/2024 9:39 AM Narrative 04/14/2024 9:41 AM ROBOTIC WELDER [address] [place], [place] [address] Examination: XR FOOT RT 3V, XR FOOT LT 3V [id number] Exam time: 04/14/2024 9:09 AM Indication: PATIENT PRESENTS TO ER WITH COMPLAINT OF SPINE, BILATERAL HIP AND BILATERAL FOOT PAIN AFTER FALLING SOME MONTHS AGO. PATIENT WAS SEEN BY AND MRI WAS ORDERED. SHE WAS TOLD TO RETURN IF SYMPTOMS RETURN. Comparison: 11/27/2016 Findings: 3 views of the right foot and 3 views of the left foot. Small bone spur on the plantar surface of the left calcaneus. No right calcaneal spurring. No fracture or dislocation. No degenerative process. No arthropathy or joint loss. No erosive bony changes. No soft tissue swelling or gas or metal foreign body. Procedure Note Heriberto Betancourt MD - 04/14/2024 [facility] [address] [place] [address] Examination: XR FOOT RT 3V, XR FOOT LT 3V [id number] Exam time: 04/14/2024 9:09 AM Indication: PATIENT PRESENTS TO ER WITH COMPLAINT OF SPINE, BILATERAL HIPAND BILATERAL FOOT PAIN AFTER FALLING SOME MONTHS AGO. PATIENT WAS SEENBY MD AND MRI WAS ORDERED. SHE WAS TOLD TO RETURN IF SYMPTOMS RETURN. Comparison: 11/27/2016 Findings: 3 views of the right foot and 3 views of the left foot. Smallbone spur on the plantar surface of the left calcaneus. No rightcalcaneal spurring. No fracture or dislocation. No degenerative process.No arthropathy or joint loss. No erosive bony changes. No soft tissueswelling or gas or metal foreign body. IMPRESSION: No fracture. Referred By: Interpreted By: Heriberto Betancourt MD, 04/14/2024 9:39 AM Sierra Sen MD GENERAL IMAGING Final Result * (ABNORMAL) PRO-BRAIN NATRIURETIC PEPTIDE (04/14/2024 7:09 AM ROBOTIC WELDER) PRO-B TYPE NATRIURETIC PEPTIDE 1,191(H) <125 PG/ML 04/14/2024 8:01 AM ROBOTIC WELDER [facility] Comment: AGE INDEPENDENT: <300 [...] OF 89% AND 72% FOR ACUTE CHF. 04/14/2024 7:09 AM ROBOTIC WELDER Sierra Sen MD LABORATORY Final Result [facility] [address] [place] [address], * (ABNORMAL) COMPREHENSIVE METABOLIC PANEL (04/14/2024 7:09 AM ROBOTIC WELDER) SODIUM S/P/B 139 136 - 145 MMOL/L 04/14/2024 8:01 AM [facility] POTASSIUM S/P/B 4.1 3.6 - 5.0 MMOL/L 04/14/2024 8:01 AM [facility] CHLORIDE S/P/B 116(H) 97 - 115 MMOL/L 04/14/2024 8:01 AM [facility] CO2 16.8(L) 21.0 - 32.0 MMOL/L 04/14/2024 8:01 AM [facility] GLUCOSE 124(H) 70 - 99 MG/DL 04/14/2024 8:01 AM [facility] Comment: FASTING GLUCOSE 100 TO 125 MG/DL IS CONSISTENT WITH IMPAIRED FASTING GLUCOSE. FASTING GLUCOSE >125 MG/DL IS CONSISTENT WITH DIABETES. RANDOM GLUCOSE >200 MG/DL WITH HYPERGLYCEMIC SYMPTOMS IS CONSISTENT WITH DIABETES. PER ADA GUIDELINES BUN 32(H) 7 - 18 MG/DL 04/14/2024 8:01 AM [facility] CREATININE S/P/B 2.21(H) 0.55 - 1.02 MG/DL 04/14/2024 8:01 AM [facility] CALCIUM S/P/B 8.5 8.5 - 10.1 MG/DL 04/14/2024 8:01 AM [facility] BILIRUBIN TOTAL S/P/B 0.6 0.2 - 1.0 MG/DL 04/14/2024 8:01 AM [facility] Comment: THIS ASSAY IS NOT RECOMMENDED FOR PATIENTS UNDERGOING TREATMENT WITH ELTROMBOPAG DUE TO THE POTENTIAL FOR FALSELY ELEVATED RESULTS. ALKALINE PHOSPHATASE S/P/B 306(H) 37 - 98 U/L 04/14/2024 8:01 AM [facility] AST 35 15 - 37 U/L 04/14/2024 8:01 AM [facility] ALT 36 13 - 56 U/L 04/14/2024 8:01 AM [facility] TOTAL PROTEIN S/P/B 6.4 6.4 - 8.0 G/DL 04/14/2024 8:01 AM [facility] ALBUMIN S/P/B 3.4 3.4 - 5.0 G/DL 04/14/2024 8:01 AM [facility] ANION GAP 6.2 2.0 - 10.0 MMOL/L 04/14/2024 8:01 AM [facility] OSMOLALITY (CALC) 296 MOSM/KG 025 8:01 AM [facility] GFR ESTIMATE 28(L) >90 ML/MIN/1. 73 M2 04/14/2024 8:01 AM [facility] GFR NOTES GFR REFERENCE S: 04/14/2024 8:01 AM [facility] Comment: THE ESTIMATED GFR IS [...] ml/min/1.73 m2 G5,KIDNEY FAILURE: <15 ml/min/1.73 m2 04/14/2024 7:09 AM ROBOTIC WELDER iSerra Sen MD LABORATORY Final Result [facility] [address] [place] [address], * (ABNORMAL) CBC W/DIFF AUTOMATED (04/14/2024 7:09 AM ROBOTIC WELDER) WBC 7.77 4.00 - 10.80 x10'3/uL 04/14/2024 7:43 AM [facility] RBC 3.60(L) 4.10 - 5.40 x10'6/uL 04/14/2024 7:43 AM [facility] HGB 12.8 12.0 - 16.0 G/DL 04/14/2024 7:43 AM [facility] HCT 37.2 36.0 - 47.0 % 04/14/2024 7:43 AM [facility] MCV 103.3(H) 78.0 - 100.0 FL 04/14/2024 7:43 AM [facility] MCH 35.6(H) 27.0 - 31.0 PG 04/14/2024 7:43 AM [facility] MCHC 34.4 33.0 - 36.0 G/DL 04/14/2024 7:43 AM [facility] RDW 13.2 11.5 - 14.5 % 04/14/2024 7:43 AM [facility] PLT 134(L) 150 - 350 x10'3/uL 04/14/2024 7:43 AM [facility] MPV 10.9(H) 7.4 - 10.4 FL 04/14/2024 7:43 AM [facility] DIFFERENTIAL TYPE AUTOMATED 04/14/2024 7:43 AM [facility] SEG NEUTROPHILS 79.4 % 7:43 AM [facility] LYMPHOCYTES 12.0 % 04/14/2024 7:43 AM [facility] MONOCYTES 6.4 % 04/14/2024 7:43 AM [facility] EOSINOPHILS 1.8 % 04/14/2024 7:43 AM [facility] BASOPHILS 0.1 % 04/14/2024 7:43 AM [facility] IMMATURE GRANS % 0.3 % 04/14/19 7:43 AM [facility] NRBC 0.0 % 04/14/2024 7:43 AM [facility] ABS. NEUTROPHILS 6.17 1.60 - 8.30 x10'3/uL 04/14/2024 7:43 AM [facility] ABS. LYMPHOCYTES 0.93 0.80 - 4.70 x10'3/uL 04/14/2024 7:43 AM [facility] ABS. MONOCYTES 0.50 0.00 - 1.50 x10'3/uL 04/14/2024 7:43 AM [facility] ABS. EOSINOPHILS 0.14 0.00 - 0.40 x10'3/uL 04/14/2024 7:43 AM [facility] ABS. BASOPHILS 0.01 0.00 - 0.20 x10'3/uL 04/14/2024 7:43 AM [facility] ABS. IMMATURE GRANULOCYTES 0.02 0.00 - 0.03 x10'3/uL 04/14/2024 7:43 AM ROBOTIC WELDER [facility] ABS. NUCLEATED RBC'S 0.00 0.00 - 0.01 x10'3/uL 04/14/2024 7:43 AM ROBOTIC WELDER [facility] 04/14/2024 7:09 AM ROBOTIC WELDER us Sierra Sen MD LABORATORY Final Result Performing Organization Address City/[facility]/ZIP Co de Phone Number [facility] [address] [place] [address], * HUMAN PAPILLOMAVIRUS, HIGH-RISK TYPES (06/20/2022 12:00 PM CDT) SPECIMEN CERVICAL/END OCERVICAL 06/22/2022 8:18 AM CDT [facility] HPV DNA HIGH RISK NEGATIVE NEGATIVE 06/22/2022 7:35 PM CDT [facility] Comment:SEE CYTOLOGY REPORT 06/20/2022 12:0 0 PM CDT us Sekou Scherer MD PATHOLOGY/CYTOLOGY ORDER KAREN Final Result Performing Organization Address City/[facility]/ZIP Co de Phone Number [facility] [address] [place] [address], * Cytopath Cerv/Vag Thin Layer (06/20/2022 7:46 AM CDT) THIN PREP PAP [facility] [address] [place] [address] Department of Pathology Pathology Report CERVICAL/VAGINAL PAP SMEAR REPORT Name: MISHA JACKSON Age: 7 1980 (Age: 41) Location: [facility] Sex: F Collected Date: 06/20/2022 [facility] #: [id number] Date Received: 06/22/2022 Date Reported: 06/24/2022 Provider: SEKOU BUTLER III, MD INTERPRETATION CERVICAL/ENDOCERVI GERARDO: SATISFACTORY FOR EVALUATION. ENDOCERVICAL/TRANS FORMATION ZONE COMPONENT ABSENT. NEGATIVE FOR INTRAEPITHELIAL LESION OR MALIGNANCY. NEGATIVE FOR HIGH RISK HPV. The FDA approved Aptima HPV assay is an in vitro nucleic acid amplification test for the qualitative detection of E6/E7 viral messenger RNA (mRNA) from 14 high-risk types of human papillomavirus (HPV) in cervical specimens. The high-risk HPV types detected by the assay include: 16,18,31,33,35,39, 45,51,52,56,58,59, 66, and 68. Electronically Signed Out By ELIDA Cohen (ASCP) CLINICAL HISTORY Z12.4 PAP HISTORY-NILM DIRECTOR OF HOSPITALITY SURGICAL HISTORY-HPV+ 05/17/16 LASER/CRYOTHERAPY ThinPrep Pap Test with screening HR HPV testing requested, with reflex HPV 16/18 genotyping on negative cytology, positive HR HPV Date of Last Menstrual Period: UNKNOWN Menstrual Status: Irregular SPECIMEN SUBMITTED CERVICAL/ENDOCERVI GERARDO Specimen Received:1 Thin Prep Vial, Image Assisted Pap (SMD) Please note: The Pap smear is not a diagnostic test. It is a screening test. Negative results on combined screening (Pap test and HPV-DNA) have a high negative predictive value (99.1-100 percent) for cervical cancer. The pap test is not effective in detecting cervical adenocarcinoma. [facility] 06/20/2022 7:46 AM CDT 06/22/2022 7:46 AM CDT Comment:CERVICAL/ENDOCERVICA L us Sekou Scherer MD PATHOLOGY/CYTOLOGY ORDER KAREN Final Result [facility] [address] [place] [address], from Last 3 Months or Most Recently Relevant to Health Maintenance Insurance [employer] Advance Directives * Full Code (Latest Code Status on File) Date Activated Date Inactivated Comments 02/20/2024 1:27 AM 02/20/2024 11:44 AM * Full Code Date Activated Date Inactivated Comments 06/21/2017 12:22 AM 06/21/2017 8:16 PM Care Teams Employee Health Rn Relationship Specialty Start Date End Date Lyly Fiore NP [address] [place] [address] PCP - General NURSE PRACTITIONER 04/14/24
--- OUTSIDE RECORDS SUMMARY | 2024-06-26 16:33 | XMS_ITS | Clinical Summary ---
Author Organization [facility] Address [address] [place] [address] Care Team Providers Care Hay Rake Operator Name Role Phone Beatriz Lee MD Unavailable [phone] Lyly Fiore NP Primary Care Provider Taylor Kitchen RN Unavailable Unav ailable Allergies Active Allergy Reactions Criticality Noted Date Comments Aspirin Anaphylaxis,Unkno wn,Other (See comments) High 04/17/2012 Pt states she reports ASA as an allergy because of the interaction w/ Prograf C counteracts immunosuppressment Azithromycin Unknown 09/29/2017 Codeine Itching High 01/17/2016 Erythromycin Other (See comments),Unknown High 04/17/2012 Pt instructed to report as an allergy because of interaction w/ Prograf Pt instructed to report as an allergy because of interaction w/ Prograf Counteracts immunosuppressants Ketorolac Unknown 09/29/2017 Ketorolac Tromethamine Other (See comments) High 01/17/2016 KIDNEY Immunosuppressants Medications buPROPion SR (WELLBUTRIN SR) 150 mg 12 hr tablet Take 1 tablet (150 mg total) by mouth 2 (two) times a day 60 tablet 025 2024 Active Additional Information Patient not taking.Reported on 06/26/2024 gabapentin (NEURONTIN) 300 mg capsule Take 1 capsule (300 mg total) by mouth 3 (three) times a day 90 capsule 025 2024 Active metoprolol (LOPRESSOR) 100 mg tablet Take 1 tablet (100 mg total) by mouth 2 (two) times a day 60 tablet [address] (PROTONIX) 40 mg EC tabletIndications :Treatment of Non-Bleeding Gastric Disorder Take 1 tablet (40 mg total) by mouth 2 (two) times a day 60 tablet 025 2024 Active venlafaxine (EFFEXOR) 37.5 mg tablet Take 0.5 tablets (18.75 mg total) by mouth 2 (two) times a day before breakfast and dinner 30 tablet 025 2024 Active sodium polystyrene with sorbitol (KAYEXALATE) 0.25-0.3 gram/mL suspensionIndicat ions:hyperkalemia Take 60 mL (15 g total) by mouth daily 1800 mL 2024 Active Abilify 2 mg tablet Take 1 tablet (2 mg total) by mouth daily Active calcium carbonate (OS-GERARDO) 1,250 mg (500 mg elemental) tablet Take 500 mg by mouth Active melatonin tablet Take 1 tablet (3 mg total) by mouth nightly Active multivitamin with minerals (Hair,Skin and Nails) tablet Take 1 tablet by mouth daily Active senna-docusate (PERICOLACE) 8.6-50 mg Take 2 tablets by mouth daily as needed Active tacrolimus XR (ENVARSUS XR) 1 mg tablet extended release 24 hrIndications:Pre vention of Kidney Transplant Rejection Take 4 tablets (4 mg total) by mouth daily 360 tablet 3 2025 Active azaTHIOprine (IMURAN) 100 mg tablet Take 1 tablet (100 mg total) by mouth daily 30 tablet 2025 Active predniSONE (DELTASONE) 5 mg tablet Take 1 tablet (5 mg) by mouth daily 30 tablet 2025 Active tacrolimus (PROGRAF) 0.5 mg immediate-release capsuleIndication s:immunosuppressi on Take 1 capsule (0.5 mg total) by mouth daily 30 capsule 11 021 2024 Discontinued(E rror) acetaminophen 500 mg capsule Take 1 capsule (500 mg total) by mouth every 6 (six) hours as needed for pain or fever 30 tablet 2024 Discontinued camphor-menthoL (SARNA) lotion Apply topically every 4 (four) hours as needed for itching 222 mL 2024 Discontinued heparin 5,000 unit/mL injectionIndicati ons:Deep Vein Thrombosis Prevention Inject 1 mL (5,000 Units total) under the skin every 12 (twelve) hours 2024 Discontinued lactulose solution 10 gram/15mL Administer 15 mL (10 g total) per feeding tube every 8 (eight) hours 2024 Discontinued octreotide (SandoSTATIN) 100 mcg/mL injectionIndicati ons:Hepatorenal Syndrome Inject 1 mL (100 mcg total) under the skin 3 (three) times a day 2024 Discontinued midodrine (PROAMATINE) 5 mg tabletIndications :Symptomatic Orthostatic Hypotension Take 1 tablet (5 mg total) by mouth every 8 (eight) hours 90 tablet 2024 Discontinued polyethylene glycol (MIRALAX) 17 gram packetIndications :constipation Take 1 packet (17 g total) by mouth daily as needed for constipation 2024 Discontinued rifAXIMin (XIFAXAN) 550 mg tabletIndications :Hepatic Encephalopathy Take 1 tablet (550 mg total) by mouth 2 (two) times a day 0 2024 Discontinued meropenem (MERREM) 1 gram injection Infuse 0.5 g (500 mg total) into a venous catheter every 12 (twelve) hours 2024 Discontinued azaTHIOprine (IMURAN) 50 mg tablet Take 1 tablet (50 mg total) by mouth daily 2024 Discontinued(S top Taking at Discharge) buPROPion SR (WELLBUTRIN SR) 150 mg 12 hr tablet Take 1 tablet (150 mg total) by mouth 2 (two) times a day 025 2024 Discontinued gabapentin (NEURONTIN) 300 mg capsule Take 1 capsule (300 mg total) by mouth 3 (three) times a day 2024 Discontinued nitrofurantoin monohydrate (MACROBID) 100 mg capsule Take 1 capsule (100 mg total) by mouth 2 (two) times a day 025 2024 Discontinued(S top Taking at Discharge) predniSONE (DELTASONE) 5 mg tablet Take 1 tablet (5 mg) by mouth daily 025 2024 Discontinued metoprolol (LOPRESSOR) 100 mg tablet Take 1 tablet (100 mg total) by mouth 2 (two) times a day 2024 Discontinued amLODIPine (NORVASC) 5 mg tablet Take 1 tablet (5 mg total) by mouth daily 2024 Discontinued(S top Taking at Discharge) tacrolimus XR (ENVARSUS XR) 1 mg tablet extended release 24 hrIndications:Pre vention of Kidney Transplant Rejection Take 7 tablets (7 mg total) by mouth daily 2024 Discontinued(S top Taking at Discharge) tacrolimus XR (ENVARSUS XR) 1 mg tablet extended release 24 hrIndications:Pre vention of Kidney Transplant Rejection Take 5 tablets (5 mg total) by mouth daily 150 tablet 2024 Discontinued(S top Taking at Discharge) azaTHIOprine (IMURAN) 100 mg tablet Take 1 tablet (100 mg total) by mouth daily 30 tablet 11 2024 Discontinued(R eorder) buprenorphine (BUTRANS) 10 mcg/hour Place 1 patch on the skin once a week for 7 days 4 patch 2024 Discontinued(S top Taking at Discharge) predniSONE (DELTASONE) 5 mg tablet Take 1 tablet (5 mg) by mouth daily 30 tablet 025 2024 Discontinued(R eorder) sodium zirconium cyclosilicate (LOKELMA) 10 gram packetIndications :hyperkalemia Take 1 packet (10 g total) by mouth daily 30 packet 2024 Discontinued(S top Taking at Discharge) tacrolimus XR (ENVARSUS XR) 4 mg tablet extended release 24 hrIndications:Pre vention of Kidney Transplant Rejection Take 1 tablet (4 mg total) by mouth daily 30 tablet 025 2024 Discontinued(S top Taking at Discharge) sodium polystyrene (KAYEXALATE) powder Take 15 gm daily 450 g 025 2024 Discontinued(S top Taking at Discharge) tacrolimus XR (ENVARSUS XR) 1 mg tablet extended release 24 hrIndications:Pre vention of Kidney Transplant Rejection Take 4 tablets (4 mg total) by mouth daily 120 tablet 3 025 2024 Discontinued(R eorder) Active Problems Patient Care Coordination No te Formatting of this note migh t be different from the original. Lab: [facility]. . . Pharmacy: [place], [place] Patient enrolled in [employer] assistance program for Envarsus until 03/2025 -[facility] for script Problem Noted Date Diagnosed Date Hyperkalemia 06/08/2024 Assessment & Plan (06/13/2024 1:50 PM CDT): With hx renal transplant c/b rejection with CKD. During hospitalization, low K diet and daily lokelma. Unfortunately, lokelma is very high in [place] despite using coupon since she hasn't met the deductible yet. Spoke with PCP to inquire if they can arrange for any supplies, but they dont have lokelma supplies. Hence, plan to DC on Kayexalate. High risk medication use 06/06/2024 Assessment & Plan (06/11/2024 11:51 AM CDT): On immunosuppression as discussed in transplant section. Chronic generalized pain 06/05/2024 Assessment & Plan (06/12/2024 11:19 AM CDT): She reports feeling generally poor since my second transplant. . She primarily struggles with chronic back pain with OSH diagnosis of spinal stenosis (had OSH MRIs), and with headaches. She reports intolerance to all opioid pain medication except IV Dilaudid. She is unable to take NSAIDs due to hx kidney transplant with CKD. Per Renal Transplant, some of patient's generalized symptoms may be attributable to CNI toxicity so they will consider a possible change of anti-rejection medication as OP. - Restarted home venlafaxine - Continue gabapentin at max dose for CrCl - Continue Wellbutrin - Flexeril PRN - Scheduled APAP at max dose given hx liver transplant - Dilaudid 0.5 IV q8h PRN for breakthrough pain > 0.5 mg 12h prn. - Psychiatry evaluated 06/05, recommend Pain Management c/s for possible initiation of buprenorphine. - Pain Management consulted 06/06. - Has OSH pain management appointment on 07/01 at 3:45 PM but very worried about managing pain until this time - Started Butrans patch 5 mcg/h weekly (06/07-06/09)-> 10 mcg/h weekly (06/09- c) - F/u with PCP prior to following up with her pain management on 07/01 appt Mixed anxiety-depression 06/05/2024 Assessment & Plan (06/05/2024 6:50 PM CDT): Denies SI. Evaluated by Psych 06/05, no changes to current meds. 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 Had biopsy proven rejection 11/2023 s/p PLEX. Lost to f/u d/t insurance change. Cr in 2023 was 1.6 then increased to 2.2 in 03/2024, back down to 2.05 on 05/27 when labs were checked with PCP. - Cr 2.1 on admission, peaked at 2.9 now has stabilized at around 2.1. - Attributed to tacro toxicity (~20 on admission) with possible pre-renal component - US transplant neg for MARISSA, mild hydro likely 2/2 bladder distension - CMV, BK negative. Ig profile WNL. - DSA high, concerning for ongoing rejection - Renal transplant following - Increased azathioprine 50->100 mg daily 06/05 - Prednisone 2.5 daily (refuses to take prescribed prednisone 5 mg daily due to concerns of weight gain). - Tacrolimus 5 mg daily with daily troughs->tacro HELD 06/10 for high level (goal 6-8) > tacro switched to 4 mg daily on 06/11. - Renal Transplant starting process of assuming care from [facility], but in short term they recommend patient follow up with renal transplant at [facility]. - She is NOW actively enrolled in the [email or web address] free patient assistance program through mar 2025 - script needs to be sent to [facility] (sent). Hyperbilirubinemia 04/16/2020 Assessment & Plan (04/16/2020 5:01 AM BUTCHER ALL ROUND): - T. Bili of 7 (last was 1.1) with a D. Bili of 4.7. alk phos of 327 (prior was 365, and an AST of 84). INR 1.4. UA unremarkable. VSS. Her last tacro trough 08/2019 was 11.3. plts 60s. c/w cholestatic pattern. RVP negative. Concern for rejection of liver (poor med compliance) causing cirrhosis (last ultrasound 07/2019 with nodular pattern) vs acute injury from virus vs autoimmune mediated vs obstructive. Less likely new drug/herbal med related as she has not introduced any new drugs recently - Had EGD 07/2019 with no varices - GI/liver consult in AM. Order placed - send ama, asma, jade, cmv, ebv antibodies. Send acute hepatitis panel - RUQ ultrasound ordered. Paracentesis ordered, labs ordered for para - NPO History of migraine 04/16/2020 Idiopathic thrombocytopenic purpura 04/16/2020 Abdominal distention 07/25/2019 Assessment & Plan (04/16/2020 2:25 AM BUTCHER ALL ROUND): See hyperbili problem. Concern for ascites Assessment & Plan (07/25/2019 6:23 AM CDT): Reporting 4-5 days of abdominal distention that she correlates with starting norco for her back pain. She took OTC diuretic and constipation medications with no changes in distention. At OSH, she had CT non con of abdomen that showed body wall edema and mesenteric stranding that could be SMV thrombus. On exam, she has bilateral lower extremity edema and some abdominal distention. S/p lasix 40mg po at OSH. May be secondary to thrombus or decreased liver/kidney function, though labs seem relatively stable. Less likely cardiac. --refer CT scan for consult here; uploaded to [facility] --consult liver transplant team --NPO pending possible further abdominal imaging --daily weight, monitor Is &Os Bilateral low back pain without sciatica 020 Assessment & Plan (07/25/2019 6:24 AM CDT): Reporting worsening lower back pain. Sounds somewhat neuropathic or musculoskeletal in nature. Was started on norco from local ED. --tylenol and lidocaine patch for now; consider starting duloxetine Chronic otitis externa of left ear 04/30/2018 Migraine without aura and wi thout status migrainosus, not intractable 03/27/2018 Ingrown fingernail 02/19/2018 Retained myringotomy tube in left ear 01/17/2018 Genital condyloma, female 01/09/2018 Rectus sheath hematoma, initial encounter 2017 Aftercare following organ transplant 12/14/2016 Anemia 12/14/2016 Overweight with body mass index (BMI) 25.0-29.9 12/14/2016 Thrombocytopenia 12/14/2016 Assessment & Plan (04/16/2020 2:26 AM BUTCHER ALL ROUND): - Chronic, concerned that this may be related to liver disease. Assessment & Plan (07/25/2019 6:27 AM CDT): Plts were 54 at OSH. Likely secondary to liver disease. Chronic and stable. 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 Gastric ulcer 10/24/2016 Anemia, unspecified 05/04/2012 Short cervix affecting 03/28/2012 Overview (04/10/2018): Overview: 11 to 13 mm with funneling Primary biliary cholangitis 03/02/2012 Teratogen exposure in current 02/21/20 12 Genital warts complicating 01/04/2012 History of cone biopsy of cervix 01/04/2012 Thrombocytopenia complicating 01/04/20 12 Resolved Problems Problem Noted Date Diagnosed Date Resolved Date Shoulder pain 06/03/2024 06/05/2024 Assessment & Plan (06/03/2024 4:50 PM CDT): Has chronic right shoulder and neck pain - had mri cervical spine in 2021 with spinal stenosis and disc protrusion( reports with pt ) , she has no s/o myelopathy, has never had injections . Tried PT in the past. [facility] MRI of right shoulder with adhesive capsulitis in 2023 ( reports with pt) She has been requiring iv pain medications here, clinically no s/o infection ( normal crp and wbc ) . Check mri spine, can consider injections if ok with transplant ? Abdominal pain 05/29/2024 06/05/2024 Assessment & Plan (06/03/2024 4:45 PM CDT): Resolved Presented with Lower abd pain, urinary urgency, started on macrobid by PCP on 05/27 though UA benign and Ucx obtained by PCP negative - workup here: No CHRISTY, WBC 6.9, UA neg, HCG neg, covid/flu neg, lipase nl, lactate nl, US transplant neg for MARISSA, mild hydro likely 2/2 bladder distension - Ddx: seems like LUTS but renal US negative and pt voiding fine with 2 benign Uas and a negative UCx. No GI symptoms other than nausea. Could be gastritis vs ulcer but no red flags like anemia or signs of GIB - RVP negative, BKV and cmv negative - PPI - H pylori pending Tachycardia 05/29/2024 06/01/2024 Assessment & Plan (05/29/2024 11:37 PM CDT): HR 120 - EKG Drug-seeking behavior 05/29/20242024 Assessment & Plan (06/02/2024 10:54 AM CDT): Chronic headaches, back pain from spinal stenosis, R shoulder pain from rotator cuff issue, OA all over body - see prior hospital records Plan: - scheduled: APAP, lido, home gabapentin - no NSAIDs - prn: dilaudid which has been helping her pain . (No escalation) Suicidal ideations 05/29/2024 Assessment & Plan (05/30/2024 12:55 AM CDT): Prior hospitalization would actually threaten to hang herself / slit her wrist if not given dilaudid - again this admission said she doesn't want to live in pain like this but seems to be in the context of pain and does not represent true SI Plan: - CTM - buproprion Migraine 05/29/2024 06/05/2024 Assessment & Plan (06/01/2024 12:10 PM CDT): Always asks for IV opioids b/c many things don't work (DHE, nurtec, triptan, compazine, zofran, APAP, excedrin, NSAIDs) Plan: -now clinically improved She had right shoulder pain since last year - prior imaging with no fractures, plan for outpatient ortho referral Nausea 05/29/2024 06/02/2024 Assessment & Plan (06/01/2024 12:10 PM CDT): resolved Liver replaced by transplant 03/02/2012 06/05/2024 Assessment & Plan (06/01/2024 12:01 PM CDT): biliary atresia s/p OLT 1992 c/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 Previously f/w [facility], lost to f/u - has chronic AP elevation but no other LFT abnormalities Plan: - imuran, pred,tacro as above - liver deferred to renal tx Assessment & Plan (04/18/2020 11:36 AM BUTCHER ALL ROUND): Post liver transplant for biliary atresia with both chronic kidney disease and graft dysfunction (without symptoms of portal hypertension) I received notice yesterday that her current insurance carrier are not contracted for transplant services at [facility]/ and we cannot negotiate a SPA unless she is critically ill and cannot be transferred. We would need to call [facility] to identify a contracted center ([phone]). She lives close enough to [place] that would be the most likely city she could travel to. She also noted that she could always remarry an ex- as he has insurance that may be covered at [facility]/. Appreciate note from nephrology and agree with restarting oral diuretics. Can continue tacrolimus at the current dose. MRI/MRCP completed and will review with radiology to identify if any role for PTC. Assessment & Plan (04/16/2020 2:26 AM BUTCHER ALL ROUND): S/p liver tranplant in 1992 for biliary atresia. Poor follow up with Dr. Vazquez. Poor compliance with tacro - check tacro trough in AM. Resume tacro 1mg bid Assessment & Plan (07/25/2019 6:27 AM CDT): History of liver transplant in 1992 2/2 biliary atresia. Was following with liver, last seen 12/2017. --continue tacro 2mg BID; get random level --consult liver transplant team CKD (chronic kidney disease) 02/21/2012 06/05/2024 Overview (04/10/2018): Overview: Creatinine 1.6 MG/DL BUN 20 MG/DL Assessment & Plan (06/03/2024 4:46 PM CDT): Cr 2.1 (was around 1.6 in 2023 until 2.2 in 03/2024)-peaked at 2.9 now trending down to1.8 - see #kidney transplant - Avoid nephrotoxins - renally dosed meds Assessment & Plan (04/16/2020 5:01 AM BUTCHER ALL ROUND): Unclear if progression of CKD vs acute injury. Saw nephrology 04/15, note not available. They wanted to start lasix - pt reports taking sodium bicarb of 1950mg bid (not taking correctly). Saw nephrology today and med not re-ordered. Will hold na-bicarb here - with liver disease, could be hepatorenal syndrome. Will rule out by giving albumin trial over 2 days - check urine pr/cr, urine lytes Assessment & Plan (07/25/2019 6:26 AM CDT): Chart says history of CKD secondary to CNI toxicity. Last labs in our system show Cr of 1.8. She follows with local footwear sales coordinator Dr. Mathew and thinks her baseline is 2.1. She was at 2.3 at OSH. She took some diuretics at home and was given lasix at OSH ED. --UA, urine lytes --get records from her footwear sales coordinator to find out baseline --random tacro level --monitor Is & Os; avoid nephrotoxins Encounters Date Type Department Care Team Description 06/26/2024 9:30 AM CDT Office Visit [facility] Gasteroenterology [address] [place] [address] [place] [id number] Beatriz Lee MD Nicotine dependence with current use 06/26/2024 Orders Only [facility] Transplant Liver [address] [place] [address] [place] [address] Dafne Dukes RN Status post liver transplant (HCC) (Primary Dx); Encounter for long-term (current) use of medications 06/26/2024 Telephone [facility] Transplant Liver [address] [place] [address]75[address] [place] [address] Lorena Turner 06/26/2024 Orders Only [facility] Transplant Liver [address] [place] [address]09-4 [place] [address] Dafne Dukes RN History of liver transplant (HCC) (Primary Dx); Encounter for long-term (current) use of medications 06/26/2024 Documentation [facility] Transplant Liver [address] [place] [address] [place] [address]17-3 [place] [address] Dafne Dukes RN 06/26/2024 Telephone [facility] Transplant Liver [address] [place] [address] [place] [address]83-9 [place] [address] Dafne Dukes, ANSON 06/14/2024 SHOP/CHAP Initial Eligibility Review [facility] OP CASE MANAGEMENT [address] [place] [id number] Shireen Griffin RN 06/13/2024 Orders Only [facility] and [facility] Transplant Liver [address] [id number] [place] [address] Dafne Dukes RN Kidney transplanted (Primary Dx) 06/06/2024 Telephone [facility] Transplant Kidney [address] [facility] [address] [id number] [place] [address] Netta Mcintosh 05/29/2024 3:11 PM CDT - 06/13/2024 3:04 PM CDT Hospital Encounter [facility] [address] [place] [phone] Jessee Mandel MD Edwards, MD Pooja Felix, MD Scout Levin, MD David Santos, Patrick José MD Abdominal pain (Primary Dx); CHRISTY (acute kidney injury); Chronic generalized pain [R52, G89.29]; High risk medication use [Z79.899]; Hyperkalemia; Chronic bilateral low back pain without sciatica; 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 Discharge Disposition: Discharge to home or self care 05/09/2024 Telephone [facility] Transplant Liver [address] Mail[address] [id number] [place] [address] Liyah Kamara 05/07/2024 Telephone [facility] Transplant Liver [address] Mailstop [id number] [place] [address] Lorena Turner 05/07/2024 Telephone [facility] Transplant Liver [address] Mailstop [phone] [place] [address] Lorena Turner 05/06/2024 Documentation [facility] Transplant Liver [address] [facility] [address] [phone] [place] [address] Taylor Kitchen RN 05/06/2024 Telephone [facility] Transplant Liver [address] [facility] [address] Mail[address] [phone] [place] [address] Lornea Turner Referral - Liver Txp from Last 3 Months Surgical History Surgery Date Site/Laterality Comments AK COLONOSCOPY FLX DX W/ROMAIN J SPEC WHEN PFRMD Complete Colonoscopy - (Added by TW Conv) COLPOSCOPY TUBAL LIGATION LIVER TRANSPLANT 03/20/1992 - 03/19/1993 SECTION x two BREAST LUMPECTOMY Left fibrous adenoma PORTOENTEROSTOMY KASAI PROCEDURE at 6 weeks old INGUINAL HERNIA REPAIR 03/20/1985 - 03/19/1986 Bilateral Medical History Medical History Date Comments Pancreatitis Depression Family History Medical History Relation Name Comments Cancer Mother Family history of malignant neoplasm - BECAUSE OF LIVER CANCER (Added by TW Conv) Diabetes Mother Family history of diabetes mellitus - (Added by TW Conv) Liver cancer Mother Family history of liver cancer - (Added by TW Conv) Relation Name Status Comments Mother Social History Tobacco Use Types Packs/Day Years Used Date Smoking Tobacco: Every Day Cigarettes Smokeless Tobacco: Never Comments:1 cigarette day Alcohol Use Standard Drinks/Week Comments Never 0 (1 standard drink = 0.6 oz pur e alcohol) rare AUDIT-C Answer Date Recorded Q1: How often do you have a drink containing alc ohol? Never 04/15/2020 Average Number of Drinks Not on file 021 Frequency of Binge Drinking Not on file 03/21 PHQ-2 Answer Date Recorded PHQ-2 Total Score (If total score is 3 or more points, staff should administer the PHQ-9) 5 05/29/2024 PHQ-9 Answer Date Recorded PHQ-9 Total Score 11 05/29/2024 Personal Safety Answer Date Recorded Have you ever been in or are you currently in a harmful physical or emotional relationship or is someone making you feel afraid or unsafe? Denies 05/29/2024 Comments No Sex and Gender Information Value Date Recorded Sex Assigned at Not on file Legal Sex Female 10:10 PM [employer] Gender Identity Not on file Sexual Orientation Not on file Obstetrics History Last Filed Vital Signs Vital Sign Reading Time Taken Comments Blood Pressure 146/88 06/26/2024 9:52 AM CDT Pulse 63 06/26/2024 9:52 AM CDT Temperature 36.9 C (98.4 F) 06/26/2024 9:52 AM CDT Respiratory Rate 18 06/13/2024 9:14 AM CDT Oxygen Saturation 98% 06/26/2024 9:52 AM CDT Inhaled Oxygen Concentration - - Weight 88 kg (194 lb) 06/26/2024 9:52 AM CDT Height 160 cm (5' 3 ) 06/26/2024 9:52 AM CDT Body Mass Index 34.37 06/26/2024 9:52 AM CDT Plan of Treatment Health Maintenance Due Date Last Done Comments Breast Cancer Screening-Mammogram 1982 Varicella Vaccines (1 of 2 - 13+ 2-dose series) 10/04/1995 Regular Well Visit/Exam 18-64 2000 Pneumococcal vaccine <65 (1 of 2 - PCV) 2001 Zoster Vaccine (1 of 2) 2001 Cervical Cancer Screening 06/21/2023 06/20/2022 Influenza Vaccine (Season Ended) 2024 Depression Screening 05/29/2025 05/29/2024, 05/30/19 25 DTaP/Tdap/Td Vaccine (5 - Td or Tdap) 10/19/2031 10/18/2021, 05/10/2017, 03/20/2017, Additional history exists Hepatitis C Screening Completed 04/16/2020 HPV Vaccines Aged Out No longer eligi ble based on patient's age to complete this topic Procedures Procedure Name Priority Date/Time Associated Diagnosis Comments EGFR Routine 06/13/2024 5:15 AM CDT DIFFERENTIAL AUTO Timed 06/13/2024 5:1 5 AM CDT CBC WITH AUTO DIFFERENTIAL Timed 06/13/2024 5:15 AM CDT RENAL FUNCTION PANEL Routine 06/13/2024 5:15 AM CDT TACROLIMUS LEVEL, TROUGH Routine 06/13/2024 5:15 AM CDT EGFR Routine 06/12/2024 5:52 AM CDT RENAL FUNCTION PANEL Routine 06/12/2024 5:52 AM CDT TACROLIMUS LEVEL, TROUGH Routine 06/12/2024 5:52 AM CDT POTASSIUM, WHOLE BLOOD STAT 11:29 PM CDT DIFFERENTIAL AUTO Timed 06/11/2024 5:1 4 AM CDT EGFR Routine 06/11/2024 5:14 AM CDT CBC WITH AUTO DIFFERENTIAL Timed 06/11/2024 5:14 AM CDT RENAL FUNCTION PANEL Routine 06/11/2024 5:14 AM CDT TACROLIMUS LEVEL, TROUGH Routine 06/11/2024 5:14 AM CDT POTASSIUM, WHOLE BLOOD Timed 10:18 PM CDT POCT GLUCOSE DEVICE Routine 06/10/2024 1 :15 PM CDT POTASSIUM LEVEL STAT 06/10/2024 10:34 AM CDT HEPATIC FUNCTION PANEL STAT 10:34 AM CDT POCT GLUCOSE DEVICE Routine 06/10/2024 9 :48 AM CDT POCT GLUCOSE DEVICE Routine 06/10/2024 6 :35 AM CDT POTASSIUM, WHOLE BLOOD STAT 4:17 AM CDT EGFR Routine 06/10/2024 4:14 AM CDT RENAL FUNCTION PANEL Routine 06/10/2024 4:14 AM CDT TACROLIMUS LEVEL, TROUGH Routine 06/10/2024 4:14 AM CDT POCT GLUCOSE DEVICE Routine 06/10/2024 2 :27 AM CDT POCT GLUCOSE DEVICE Routine 06/10/2024 1 :25 AM CDT POCT GLUCOSE DEVICE Routine 06/10/2024 1 2:24 AM CDT ECG 12-LEAD STAT 06/10/2024 12:20 AM CDT POTASSIUM, WHOLE BLOOD Timed 11:26 PM CDT EGFR STAT 06/09/2024 6:33 PM CDT RENAL FUNCTION PANEL STAT 06/09/2024 6:33 PM CDT EGFR Routine 06/09/2024 5:12 AM CDT DIFFERENTIAL AUTO Timed 06/09/2024 5:1 2 AM CDT CBC WITH AUTO DIFFERENTIAL Timed 06/09/2024 5:12 AM CDT RENAL FUNCTION PANEL Routine 06/09/2024 5:12 AM CDT TACROLIMUS LEVEL, TROUGH Routine 06/09/2024 5:12 AM CDT POTASSIUM, WHOLE BLOOD STAT 8:37 AM CDT EGFR Routine 06/08/2024 5:40 AM CDT RENAL FUNCTION PANEL Routine 06/08/2024 5:40 AM CDT TACROLIMUS LEVEL, TROUGH Routine 06/08/2024 5:40 AM CDT EGFR Routine 06/07/2024 5:17 AM CDT DIFFERENTIAL AUTO Timed 06/07/2024 5:1 7 AM CDT CBC WITH AUTO DIFFERENTIAL Timed 06/07/2024 5:17 AM CDT RENAL FUNCTION PANEL Routine 06/07/2024 5:17 AM CDT TACROLIMUS LEVEL, TROUGH Routine 06/07/2024 5:17 AM CDT POTASSIUM, WHOLE BLOOD STAT 11:29 AM CDT EGFR Routine 06/06/2024 4:28 AM CDT RENAL FUNCTION PANEL Routine 06/06/2024 4:28 AM CDT TACROLIMUS LEVEL, TROUGH Routine 06/06/2024 4:28 AM CDT EGFR Routine 06/05/2024 5:49 AM CDT DIFFERENTIAL AUTO Routine 06/05/2024 5:4 9 AM CDT CBC WITH AUTO DIFFERENTIAL Routine 06/05/2024 5:49 AM CDT RENAL FUNCTION PANEL Routine 06/05/2024 5:49 AM CDT TACROLIMUS LEVEL, TROUGH Routine 06/05/2024 5:49 AM CDT ECG 12-LEAD Routine 06/04/2024 5:41 AM CDT EGFR Routine 06/04/2024 5:10 AM CDT DIFFERENTIAL AUTO Routine 06/04/2024 5:1 0 AM CDT CBC WITH AUTO DIFFERENTIAL Routine 06/04/2024 5:10 AM CDT RENAL FUNCTION PANEL Routine 06/04/2024 5:10 AM CDT TACROLIMUS LEVEL, TROUGH Routine 06/04/2024 5:10 AM CDT FOLATE Routine 06/04/2024 12:39 AM CDT PROTEIN / CREATININE RATIO, URINE, RANDOM Routine 06/03/2024 6:15 PM CDT CRP (ACUTE PHASE) Routine 06/03/2024 8:5 4 AM CDT EGFR Routine 06/03/2024 8:54 AM CDT DIFFERENTIAL AUTO Routine 06/03/2024 8:5 4 AM CDT CBC WITH AUTO DIFFERENTIAL Routine 06/03/2024 8:54 AM CDT RENAL FUNCTION PANEL Routine 06/03/2024 8:54 AM CDT TACROLIMUS LEVEL, TROUGH Routine 06/03/2024 8:54 AM CDT EGFR Timed 06/03/2024 2:22 AM CDT DIFFERENTIAL AUTO Timed 06/03/2024 2:2 2 AM CDT TACROLIMUS LEVEL, RANDOM STAT 06/03/2024 2:22 AM CDT RENAL FUNCTION PANEL Timed 06/03/2024 2:22 AM CDT CBC WITH AUTO DIFFERENTIAL Timed 06/03/2024 2:22 AM CDT TSH Routine 06/03/2024 2:22 AM CDT VITAMIN B12 Routine 06/03/2024 2:22 AM CDT FERRITIN Routine 06/03/2024 2:22 AM CDT IRON PROFILE W/ IBC Routine 06/03/2024 2 :22 AM CDT EGFR Routine 06/02/2024 8:43 AM CDT DIFFERENTIAL AUTO Routine 06/02/2024 8:4 3 AM CDT CBC WITH AUTO DIFFERENTIAL Routine 06/02/2024 8:43 AM CDT RENAL FUNCTION PANEL Routine 06/02/2024 8:43 AM CDT TACROLIMUS LEVEL, TROUGH Routine 06/02/2024 8:43 AM CDT IMMUNOGLOBULIN PROFILE Routine 9:10 PM CDT DIFFERENTIAL AUTO Routine 06/01/2024 10: 03 AM CDT CBC WITH AUTO DIFFERENTIAL Routine 06/01/2024 10:03 AM CDT TACROLIMUS LEVEL, TROUGH Routine 06/01/2024 9:20 AM CDT EGFR Routine 06/01/2024 6:17 AM CDT RENAL FUNCTION PANEL Routine 06/01/2024 6:17 AM CDT TRANSTHORACIC ECHO (TTE) COMPLETE W DOPPLER/CF WO CONTRAST ED Urgent/IP Urgent 05/31/2024 2:50 PM CDT EGFR Routine 05/31/2024 4:55 AM CDT DIFFERENTIAL AUTO Routine 05/31/2024 4:5 5 AM CDT CBC WITH AUTO DIFFERENTIAL Routine 05/31/2024 4:55 AM CDT RENAL FUNCTION PANEL Routine 05/31/2024 4:55 AM CDT TACROLIMUS LEVEL, TROUGH Routine 05/31/2024 4:55 AM CDT SODIUM, URINE, RANDOM Routine 05/30/2024 5:23 PM CDT CREATININE, URINE, RANDOM Routine 05/30/2024 5:23 PM CDT EGFR Routine 05/30/2024 4:44 AM CDT DIFFERENTIAL AUTO Routine 05/30/2024 4:4 4 AM CDT HLA ANTIBODY SCREEN BY SINGLE ANTIGEN Routine 05/30/2024 4:44 AM CDT CBC WITH AUTO DIFFERENTIAL Routine 05/30/2024 4:44 AM CDT RENAL FUNCTION PANEL Routine 05/30/2024 4:44 AM CDT TACROLIMUS LEVEL, TROUGH Routine 05/30/2024 4:44 AM CDT CYTOMEGALOVIRUS (CMV) DNA, QUANT GEN LAB STAT 05/30/2024 4:44 AM CDT BK VIRUS PCR QUANTITATIVE Routine 05/30/2024 4:44 AM CDT HLA DONOR SPECIFIC ANTIBODY REPORT 05/30/2024 4:42 AM CDT HLA DONOR SPECIFIC ANTIBODY REPORT 05/30/2024 4:42 AM CDT HLA ANTIBODY SCREEN - DSA (CLASS I AND CLASS II) Routine 05/30/2024 4:42 AM CDT Abdominal pain ECG 12-LEAD STAT 05/30/2024 1:10 AM CDT US RENAL TRANSPLANT W DOPPLERS ED 05/29/2024 5:08 PM CDT RESPIRATORY PATHOGEN PANEL Routine 05/29/2024 4:10 PM CDT INFLUENZA A/B, RSV, AND COVID-19 PCR STAT 05/29/2024 4:10 PM CDT URINALYSIS AND REFLEX TO MICROSCOPIC STAT 05/29/2024 3:31 PM CDT POCT HCG, URINE Routine 05/29/2024 3:30 PM CDT POCT LACTATE - DEVICE Routine 05/29/2024 3:02 PM CDT TACROLIMUS LEVEL, RANDOM STAT 05/29/2024 2:57 PM CDT EGFR STAT 05/29/2024 2:57 PM CDT DIFFERENTIAL AUTO STAT 05/29/2024 2:5 7 PM CDT LIPASE STAT 05/29/2024 2:57 PM CDT COMPREHENSIVE METABOLIC PANEL STAT 05/29/2024 2:57 PM CDT CBC WITH AUTO DIFFERENTIAL STAT 05/29/2024 2:57 PM CDT HEPATITIS PANEL, ACUTE Routine 6:35 AM [employer] from Last 3 Months or Most Recently Relevant to Health Maintenance Results * (ABNORMAL) eGFR (06/13/2024 5:15 AM CDT) Pathologist [facility] eGFR 31(L) >=60 mL/min/1. 73 m2 Comment: Interpretive Data Reference Interval Normal >/= 90 mL/min/1.73m2 Mildly decreased* 60 - 89 mL/min/1.73m2 Mildly to moderately decreased 45 - 59 mL/min/1.73m2 Moderately to severely decreased 30 - 44 mL/min/1.73m2 Severely decreased 15 - 29 mL/min/1.73m2 Kidney Failure < 15 mL/min/1.73m2 *Relative to young adult level Estimated glomerular filtration rate is determined by the 2020 CKD-EPI equation recommended by the National Kidney Foundation (A Unifying Approach to GFR Estimation: Recommendations of the NKF-ASK Task Force on Reassessing the Inclusion of Race in Diagnosing Kidney Disease, JASN 2020). The CKD-EPI equation should not be used for patients with unstable renal function and has not been validated in children and those over 70. Current interpretive data was last reviewed 2021. Blood 06/13/2024 5:15 AM CDT 06/13/2024 6:05 AM CDT us Patricia Davidson MD PhD LAB BLOOD ORDERABLES Final Result [facility] [place] [address] * Differential, auto (06/13/2024 5:15 AM CDT) Neutrophil abs 3.2 1.5 - 6.5 K/cumm Imm gran abs 0.0 0.0 - 0.1 K/cumm [facility] Lymphocyte abs 0.9 0.8 - 3.3 K/cumm [facility] Monocyte abs 0.3 0.2 - 0.8 K/cumm [facility] Eosinophil abs 0.2 0.0 - 0.5 K/cumm [facility] Basophil abs 0.0 0.0 - 0.1 K/cumm [facility] Neutrophil pct 69.4 % [facility] Comment: Interpretive Data Percent cell count reference ranges are not reported, since discordance with absolute values may lead to misinterpretation of CBC data. Current Interpretive Data was last revised on 2017. Imm gran pct 0.2 % [facility] Comment: Interpretive Data Percent cell count reference ranges are not reported, since discordance with absolute values may lead to misinterpretation of CBC data. Current Interpretive Data was last revised on 2017. Lymphocyte pct 20.4 % [facility] Comment: Interpretive Data Percent cell count reference ranges are not reported, since discordance with absolute values may lead to misinterpretation of CBC data. Current Interpretive Data was last revised on 2017. Monocyte pct 5.9 % [facility] Comment: Interpretive Data Percent cell count reference ranges are not reported, since discordance with absolute values may lead to misinterpretation of CBC data. Current Interpretive Data was last revised on 2017. Eosinophil pct 3.9 % [facility] Comment: Interpretive Data Percent cell count reference ranges are not reported, since discordance with absolute values may lead to misinterpretation of CBC data. Current Interpretive Data was last revised on 2017. Basophil pct 0.2 % [facility] Comment: Interpretive Data Percent cell count reference ranges are not reported, since discordance with absolute values may lead to misinterpretation of CBC data. Current Interpretive Data was last revised on 2017. Blood 06/13/2024 5:15 AM CDT 06/13/2024 6:05 AM CDT Martha Butterfield MD LAB BLOOD ORDERABLES F inal Result Performing Organization Address [facility] Co de Phone Number [facility] Department [place] [employer] [place] [address] * Tacrolimus level trough (06/13/2024 5:15 AM CDT) [facility] Tacrolimus trough 7.4 ng/mL Comment: Interpretive Data Testing performed by liquid chromatography-tandem mass spectrometry. Therapeutic concentrations vary depending on type of transplanted organ and time elapsed since transplant. Typical trough concentrations range from 5-15 ng/mL. This test was developed and its performance characteristics determined by the [facility] consistent with CLIA requirements. This test has not been cleared or approved by the [place] Food and Drug administration. Current interpretive data last reviewed 2019. Blood 06/13/2024 5:15 AM CDT 06/13/2024 6:05 AM CDT Patricia Davidson MD PhD LAB BLOOD ORDERABLES Final Result Performing Organization Address City/[facility]/ZIP Co de Phone Number [facility] [place] [address] * (ABNORMAL) CBC with auto differential (06/13/2024 5:15 AM CDT) [facility] WBC 4.6 3.8 - 9.9 K/cumm Hgb 11.1(L) 11.9 - 15.5 g/dL [facility] Hct 32.8(L) 35.6 - 45.5 % [facility] Plt 112(L) 150 - 400 K/cumm [facility] MPV 11.6 9.1 - 12.3 fL [facility] RBC 3.13(L) 3.90 - 5.20 M/cumm [facility] MCV 104.8(H) 81.3 - 96.4 fL [facility] MCH 35.5(H) 27.1 - 33.3 pg [facility] MCHC 33.8 32.3 - 35.7 g/dL [facility] RDW CV 14.8 11.1 - 14.9 % [facility] RDW SD 56.5(H) 35.7 - 48.1 fL [facility] NRBC abs 0.00 0.00 - 0.01 K/cumm [facility] Blood 06/13/2024 5:15 AM CDT 06/13/2024 6:05 AM CDT us Martha Butterfield MD LAB BLOOD ORDERABLES F inal Result [facility] [place] [address] * (ABNORMAL) Renal function panel (06/13/2024 5:15 AM CDT) [facility] Sodium 144 135 - 145 mmol/L Potassium, pl 4.9 3.3 - 4.9 mmol/L [facility] Chloride 111(H) 97 - 110 mmol/L [facility] CO2 25 22 - 32 mmol/L [facility] Anion gap 8 2 - 15 mmol/L [facility] BUN 27(H) 6 - 25 mg/dL [facility] Creatinine 2.03(H) 0.60 - 1.10 mg/dL [facility] Glucose 121 70 - 199 mg/dL [facility] Comment: Interpretive Data Fasting glucose >/= 126 mg/dl is diagnostic for diabetes. Fasting is defined as no caloric intake for at least 8 hours. Fasting glucose between 100 mg/dl to 125 mg/dl is diagnostic of prediabetes. In a patient with classic symptoms of hyperglycemia or hyperglycemic crisis, a random glucose >/= 200 mg/dl is diagnostic for diabetes. In the absence of unequivocal hyperglycemia, results should be confirmed by repeat testing. The classification and Diagnosis of Diabetes Diabetes Care 2021; 46: S19-S40. Current interpretive data was last revised 2022. Calcium 8.6 8.5 - 10.3 mg/dL [facility] Phosphorus, pl 3.9 2.3 - 4.5 mg/dL [facility] Albumin 3.6 3.5 - 5.0 g/dL [facility] Blood 06/13/2024 5:15 AM CDT 06/13/2024 6:05 AM CDT us Patricia Davidson MD PhD LAB BLOOD ORDERABLES Final Result [facility] [place] [address] * (ABNORMAL) eGFR (06/12/2024 5:52 AM CDT) eGFR 29(L) >=60 mL/min/1. 73 m2 Comment: Interpretive Data Reference Interval Normal >/= 90 mL/min/1.73m2 Mildly decreased* 60 - 89 mL/min/1.73m2 Mildly to moderately decreased 45 - 59 mL/min/1.73m2 Moderately to severely decreased 30 - 44 mL/min/1.73m2 Severely decreased 15 - 29 mL/min/1.73m2 Kidney Failure < 15 mL/min/1.73m2 *Relative to young adult level Estimated glomerular filtration rate is determined by the 2020 CKD-EPI equation recommended by the National Kidney Foundation (A Unifying Approach to GFR Estimation: Recommendations of the NKF-ASK Task Force on Reassessing the Inclusion of Race in Diagnosing Kidney Disease, JASN 2020). The CKD-EPI equation should not be used for patients with unstable renal function and has not been validated in children and those over 70. Current interpretive data was last reviewed 2021. Blood 06/12/2024 5:52 AM CDT 06/12/2024 6:17 AM CDT Patricia Davidson MD PhD LAB BLOOD ORDERABLES Final Result Performing Organization Address [facility] de Phone Number [facility] [place] [address] * Tacrolimus level trough (06/12/2024 5:52 AM CDT) Pathologist [facility] Tacrolimus trough 6.2 ng/mL Comment: Interpretive Data Testing performed by liquid chromatography-tandem mass spectrometry. Therapeutic concentrations vary depending on type of transplanted organ and time elapsed since transplant. Typical trough concentrations range from 5-15 ng/mL. This test was developed and its performance characteristics determined by the [facility] consistent with CLIA requirements. This test has not been cleared or approved by the [place] Food and Drug administration. Current interpretive data last reviewed 2019. Blood 06/12/2024 5:52 AM CDT 06/12/2024 6:18 AM CDT Patricia Davidson MD PhD LAB BLOOD ORDERABLES Final Result Performing Organization Address [facility] de Phone Number [facility] [place] [address] * (ABNORMAL) Renal function panel (06/12/2024 5:52 AM CDT) [facility] Sodium 145 135 - 145 mmol/L Potassium, pl 5.0(H) 3.3 - 4.9 mmol/L [facility] Chloride 112(H) 97 - 110 mmol/L [facility] CO2 27 22 - 32 mmol/L [facility] Anion gap 6 2 - 15 mmol/L [facility] BUN 30(H) 6 - 25 mg/dL [facility] Creatinine 2.16(H) 0.60 - 1.10 mg/dL [facility] Glucose 101 70 - 199 mg/dL [facility] Comment: Interpretive Data Fasting glucose >/= 126 mg/dl is diagnostic for diabetes. Fasting is defined as no caloric intake for at least 8 hours. Fasting glucose between 100 mg/dl to 125 mg/dl is diagnostic of prediabetes. In a patient with classic symptoms of hyperglycemia or hyperglycemic crisis, a random glucose >/= 200 mg/dl is diagnostic for diabetes. In the absence of unequivocal hyperglycemia, results should be confirmed by repeat testing. The classification and Diagnosis of Diabetes Diabetes Care 2021; 46: S19-S40. Current interpretive data was last revised 2022. Calcium 8.7 8.5 - 10.3 mg/dL [facility] Phosphorus, pl 4.3 2.3 - 4.5 mg/dL [facility] Albumin 3.4(L) 3.5 - 5.0 g/dL [facility] Blood 06/12/2024 5:52 AM CDT 06/12/2024 6:17 AM CDT us Patricia Davidson MD PhD LAB BLOOD ORDERABLES Final Result [facility] [place] [address] * Potassium, whole blood (06/11/2024 11:29 PM CDT) [facility] Potassium, bld 4.7 3.3 - 4.9 mmol/L Blood 06/11/2024 11:2 9 PM CDT 06/11/2024 11:48 PM CDT us Patrick Hernandez MD LAB BLOOD ORDERABLES Fi nal Result [facility] [place] [address] * (ABNORMAL) eGFR (06/11/2024 5:14 AM CDT) [facility] eGFR 28(L) >=60 mL/min/1. 73 m2 Comment: Interpretive Data Reference Interval Normal >/= 90 mL/min/1.73m2 Mildly decreased* 60 - 89 mL/min/1.73m2 Mildly to moderately decreased 45 - 59 mL/min/1.73m2 Moderately to severely decreased 30 - 44 mL/min/1.73m2 Severely decreased 15 - 29 mL/min/1.73m2 Kidney Failure < 15 mL/min/1.73m2 *Relative to young adult level Estimated glomerular filtration rate is determined by the 2020 CKD-EPI equation recommended by the National Kidney Foundation (A Unifying Approach to GFR Estimation: Recommendations of the NKF-ASK Task Force on Reassessing the Inclusion of Race in Diagnosing Kidney Disease, JASN 2020). The CKD-EPI equation should not be used for patients with unstable renal function and has not been validated in children and those over 70. Current interpretive data was last reviewed 2021. Blood 06/11/2024 5:14 AM CDT 06/11/2024 5:51 AM CDT us Patricia Davidson MD PhD LAB BLOOD ORDERABLES Final Result [facility] [place] [address] * Differential, auto (06/11/2024 5:14 AM CDT) [facility] Neutrophil abs 2.3 1.5 - 6.5 K/cumm Imm gran abs 0.0 0.0 - 0.1 K/cumm [facility] Lymphocyte abs 1.0 0.8 - 3.3 K/cumm [facility] Monocyte abs 0.3 0.2 - 0.8 K/cumm [facility] Eosinophil abs 0.2 0.0 - 0.5 K/cumm [facility] Basophil abs 0.0 0.0 - 0.1 K/cumm [facility] Neutrophil pct 61.8 % [facility] Comment: Interpretive Data Percent cell count reference ranges are not reported, since discordance with absolute values may lead to misinterpretation of CBC data. Current Interpretive Data was last revised on 2017. Imm gran pct 0.5 % [facility] Comment: Interpretive Data Percent cell count reference ranges are not reported, since discordance with absolute values may lead to misinterpretation of CBC data. Current Interpretive Data was last revised on 2017. Lymphocyte pct 26.6 % [facility] Comment: Interpretive Data Percent cell count reference ranges are not reported, since discordance with absolute values may lead to misinterpretation of CBC data. Current Interpretive Data was last revised on 2017. Monocyte pct 6.6 % [facility] Comment: Interpretive Data Percent cell count reference ranges are not reported, since discordance with absolute values may lead to misinterpretation of CBC data. Current Interpretive Data was last revised on 2017. Eosinophil pct 4.2 % [facility] Comment: Interpretive Data Percent cell count reference ranges are not reported, since discordance with absolute values may lead to misinterpretation of CBC data. Current Interpretive Data was last revised on 2017. Basophil pct 0.3 % [facility] Comment: Interpretive Data Percent cell count reference ranges are not reported, since discordance with absolute values may lead to misinterpretation of CBC data. Current Interpretive Data was last revised on 2017. Blood 06/11/2024 5:14 AM CDT 06/11/2024 6:24 AM CDT us Martha Butterfield MD LAB BLOOD ORDERABLES F inal Result [facility] [place] [address] * Tacrolimus level trough (06/11/2024 5:14 AM CDT) [facility] Tacrolimus trough 5.4 ng/mL Comment: Interpretive Data Testing performed by liquid chromatography-tandem mass spectrometry. Therapeutic concentrations vary depending on type of transplanted organ and time elapsed since transplant. Typical trough concentrations range from 5-15 ng/mL. This test was developed and its performance characteristics determined by the [facility] consistent with CLIA requirements. This test has not been cleared or approved by the [place] Food and Drug administration. Current interpretive data last reviewed 2019. Blood 06/11/2024 5:14 AM CDT 06/11/2024 5:51 AM CDT Patricia Davidson MD PhD LAB BLOOD ORDERABLES Final Result Performing Organization Address [facility]/ZIP Co de Phone Number [facility] [place] [employer] [place] [address] * (ABNORMAL) CBC with auto differential (06/11/2024 5:14 AM CDT) WBC 3.8 3.8 - 9.9 K/cumm Hgb 10.3(L) 11.9 - 15.5 g/dL [facility] Hct 30.0(L) 35.6 - 45.5 % [facility] Plt 93(L) 150 - 400 K/cumm [facility] MPV 11.5 9.1 - 12.3 fL [facility] RBC 2.82(L) 3.90 - 5.20 M/cumm [facility] MCV 106.4(H) 81.3 - 96.4 fL [facility] MCH 36.5(H) 27.1 - 33.3 pg [facility] MCHC 34.3 32.3 - 35.7 g/dL [facility] RDW CV 14.5 11.1 - 14.9 % [facility] RDW SD 55.4(H) 35.7 - 48.1 fL [facility] NRBC abs 0.00 0.00 - 0.01 K/cumm [facility] Blood 06/11/2024 5:14 AM CDT 06/11/2024 6:24 AM CDT us Martha Butterfield MD LAB BLOOD ORDERABLES F inal Result Performing Organization Address City/[facility]/ZIP Co de Phone Number [facility] Department [place] [place] [address] * (ABNORMAL) Renal function panel (06/11/2024 5:14 AM CDT) Sodium 141 135 - 145 mmol/L Potassium, pl 4.6 3.3 - 4.9 mmol/L [facility] Chloride 109 97 - 110 mmol/L [facility] CO2 23 22 - 32 mmol/L [facility] Anion gap 9 2 - 15 mmol/L [facility] BUN 29(H) 6 - 25 mg/dL [facility] Creatinine 2.24(H) 0.60 - 1.10 mg/dL [facility] Glucose 133 70 - 199 mg/dL [facility] Comment: Interpretive Data Fasting glucose >/= 126 mg/dl is diagnostic for diabetes. Fasting is defined as no caloric intake for at least 8 hours. Fasting glucose between 100 mg/dl to 125 mg/dl is diagnostic of prediabetes. In a patient with classic symptoms of hyperglycemia or hyperglycemic crisis, a random glucose >/= 200 mg/dl is diagnostic for diabetes. In the absence of unequivocal hyperglycemia, results should be confirmed by repeat testing. The classification and Diagnosis of Diabetes Diabetes Care 2021; 46: S19-S40. Current interpretive data was last revised 2022. Calcium 8.6 8.5 - 10.3 mg/dL [facility] Phosphorus, pl 3.8 2.3 - 4.5 mg/dL [facility] Albumin 3.4(L) 3.5 - 5.0 g/dL [facility] Blood 06/11/2024 5:14 AM CDT 06/11/2024 5:51 AM CDT us Patricia Davidson MD PhD LAB BLOOD ORDERABLES Final Result [facility] [place] [address] * Potassium, whole blood (06/10/2024 10:18 PM CDT) Potassium, bld 4.7 3.3 - 4.9 mmol/L Blood 06/10/2024 10:1 8 PM CDT 06/10/2024 11:20 PM CDT Martha Butterfield MD LAB BLOOD ORDERABLES F inal Result Performing Organization Address [facility] Co de Phone Number [facility] [place] [address] * POCT glucose (06/10/2024 1:15 PM CDT) Glucose, POC 145 70 - 199 mg/dL Blood 06/10/2024 1:15 PM CDT 06/10/2024 1:15 PM CDT Martha Butterfield MD LAB POCT ORDERABLES - DEVICE Final Result Performing Organization Address [facility] de Phone Number [facility] [place] [place] [address] * Potassium (06/10/2024 10:34 AM CDT) Potassium, pl 4.7 3.3 - 4.9 mmol/L Blood 06/10/2024 10:3 4 AM CDT 06/10/2024 11:28 AM CDT Martha Butterfield MD LAB BLOOD ORDERABLES F inal Result Performing Organization Address [facility] [place] [address] * (ABNORMAL) Hepatic function panel (06/10/2024 10:34 AM CDT) Bilirubin, total 0.7 0.1 - 1.2 mg/dL Bilirubin, direct 0.3 0.1 - 0.3 mg/dL [facility] Protein, pl 6.3(L) 6.5 - 8.5 g/dL [facility] Albumin 3.7 3.5 - 5.0 g/dL [facility] Alk phos 253(H) 40 - 130 Units/L [facility] ALT 23 7 - 45 Units/L [facility] AST 25 10 - 45 Units/L [facility] Blood 06/10/2024 10:3 4 AM CDT 06/10/2024 11:28 AM CDT Martha Butterfield MD LAB BLOOD ORDERABLES F inal Result Performing Organization Address City/[facility] Co de Phone Number [facility] [place] [place] [address] * POCT glucose (06/10/2024 9:48 AM CDT) Glucose, POC 157 70 - 199 mg/dL Blood 06/10/2024 9:48 AM CDT 06/10/2024 9:48 AM CDT Martha Butterfield MD LAB POCT ORDERABLES - DEVICE Final Result Performing Organization Address [facility] Co de Phone Number [facility] [place] [employer] [place] [address] * POCT glucose (06/10/2024 6:35 AM CDT) Glucose, POC 137 70 - 199 mg/dL Blood 06/10/2024 6:35 AM CDT 06/10/2024 6:35 AM CDT Martha Butterfield MD LAB POCT ORDERABLES - DEVICE Final Result Performing Organization Address [facility] Co de Phone Number [facility] [place] [place] [address] * (ABNORMAL) Potassium, whole blood (06/10/2024 4:17 AM CDT) Potassium, bld 5.2(H) 3.3 - 4.9 mmol/L Blood 06/10/2024 4:17 AM CDT 06/10/2024 4:24 AM CDT us Lyndsey Ramos MD LAB BLOOD ORDERABLES Aniya l Result Performing Organization Address [facility] Co de Phone Number [facility] [place] [address] * (ABNORMAL) eGFR (06/10/2024 4:14 AM CDT) eGFR 30(L) >=60 mL/min/1. 73 m2 Comment: Interpretive Data Reference Interval Normal >/= 90 mL/min/1.73m2 Mildly decreased* 60 - 89 mL/min/1.73m2 Mildly to moderately decreased 45 - 59 mL/min/1.73m2 Moderately to severely decreased 30 - 44 mL/min/1.73m2 Severely decreased 15 - 29 mL/min/1.73m2 Kidney Failure < 15 mL/min/1.73m2 *Relative to young adult level Estimated glomerular filtration rate is determined by the 2020 CKD-EPI equation recommended by the National Kidney Foundation (A Unifying Approach to GFR Estimation: Recommendations of the NKF-ASK Task Force on Reassessing the Inclusion of Race in Diagnosing Kidney Disease, JASN 2020). The CKD-EPI equation should not be used for patients with unstable renal function and has not been validated in children and those over 70. Current interpretive data was last reviewed 2021. Blood 06/10/2024 4:14 AM CDT 06/10/2024 4:32 AM CDT us Patricia Davidson MD PhD LAB BLOOD ORDERABLES Final Result Performing Organization Address [facility] Co de Phone Number [facility] [place] [place] [address] * Tacrolimus level trough (06/10/2024 4:14 AM CDT) Tacrolimus trough 9.6 ng/mL Comment: Interpretive Data Testing performed by liquid chromatography-tandem mass spectrometry. Therapeutic concentrations vary depending on type of transplanted organ and time elapsed since transplant. Typical trough concentrations range from 5-15 ng/mL. This test was developed and its performance characteristics determined by the [facility] consistent with CLIA requirements. This test has not been cleared or approved by the US Food and Drug administration. Current interpretive data last reviewed 2019. Blood 06/10/2024 4:14 AM CDT 06/10/2024 4:32 AM CDT us Patricia Davidson MD PhD LAB BLOOD ORDERABLES Final Result [facility] [place] [address] * (ABNORMAL) Renal function panel (06/10/2024 4:14 AM CDT) Sodium 142 135 - 145 mmol/L Potassium, pl 5.6(H) 3.3 - 4.9 mmol/L [facility] Comment:Hemolyzed; Potassium value may be falsely elevated by as much as 0.3-0.5 mmol/L. Suggest redraw and reanalysis. Chloride 112(H) 97 - 110 mmol/L [facility] CO2 24 22 - 32 mmol/L [facility] Anion gap 6 2 - 15 mmol/L [facility] BUN 29(H) 6 - 25 mg/dL [facility] Creatinine 2.11(H) 0.60 - 1.10 mg/dL [facility] Glucose 158 70 - 199 mg/dL [facility] Comment: Interpretive Data Fasting glucose >/= 126 mg/dl is diagnostic for diabetes. Fasting is defined as no caloric intake for at least 8 hours. Fasting glucose between 100 mg/dl to 125 mg/dl is diagnostic of prediabetes. In a patient with classic symptoms of hyperglycemia or hyperglycemic crisis, a random glucose >/= 200 mg/dl is diagnostic for diabetes. In the absence of unequivocal hyperglycemia, results should be confirmed by repeat testing. The classification and Diagnosis of Diabetes Diabetes Care 202; 46: S19-S40. Current interpretive data was last revised 2022. Calcium 9.1 8.5 - 10.3 mg/dL [facility] Phosphorus, pl 3.7 2.3 - 4.5 mg/dL [facility] Albumin 3.6 3.5 - 5.0 g/dL [facility] Blood 06/10/2024 4:14 AM CDT 06/10/2024 4:32 AM CDT us Patricia Davidson MD PhD LAB BLOOD ORDERABLES Final Result Performing Organization Address City/[facility]/ZIP Co de Phone Number [facility] [place] [place] [address] * (ABNORMAL) POCT glucose (06/10/2024 2:27 AM CDT) Glucose, POC 210(H) 70 - 199 mg/dL Blood 06/10/2024 2:27 AM CDT 06/10/2024 2:27 AM CDT Martha Butterfield MD LAB POCT ORDERABLES - DEVICE Final Result Performing Organization Address [facility] Co de Phone Number [facility] [place] [place] [address] * (ABNORMAL) POCT glucose (06/10/2024 1:25 AM CDT) Glucose, POC 277(H) 70 - 199 mg/dL Blood 06/10/2024 1:25 AM CDT 06/10/2024 1:25 AM CDT Martha Butterfield MD LAB POCT ORDERABLES - DEVICE Final Result Performing Organization Address City/[facility] Co de Phone Number [facility] [place] [place] [address] * POCT glucose (06/10/2024 12:24 AM CDT) Glucose, POC 138 70 - 199 mg/dL Blood 06/10/2024 12:2 4 AM CDT 06/10/2024 12:24 AM CDT Martha Butterfield MD LAB POCT ORDERABLES - DEVICE Final Result Performing Organization Address [facility] Co de Phone Number [facility] [place] [address] * ECG 12 lead (06/10/2024 12:20 AM CDT) [facility] Ventricular Rate EKG/Min 65 BPM [facility] Atrial Rate 65 BPM [facility] AK-Interval (MSEC) 160 ms [facility] QRS-Interval (MSEC) 72 ms [facility] QT-Interval (MSEC) 452 ms [facility] QTc 470 ms [facility] P [place] -11 degrees [facility] R [place] -16 degrees [facility] T [place] 54 degrees [facility] Diagnosis Normal sinus rhythm Low voltage QRS QS in V1 and V2, a nonspecific finding with multiple causes, including lead misplacement or septal infarction in 20% noted 04-JUN-2024) Poor r wave progression associated with abnormal lead placement, obesity, pulmonary disease, anterior infarction. Long QT interval Abnormal ECG When compared with ECG of 04-JUN-2024 05:41, Questionable change in initial forces of Septal leads Confirmed by BRODIE LEIGH M.D ([id number]) on 06/11/2024 10:14:44 AM [facility] 06/10/2024 12:2 0 AM CDT 06/11/2024 10:14 AM CDT Martha Butterfield MD ECG ORDERABLES Final Result Performing Organization Address [facility]/ZIP Co de Phone Number [facility] [employer] [facility] * (ABNORMAL) Potassium, whole blood (06/09/2024 11:26 PM CDT) Potassium, bld 5.7(H) 3.3 - 4.9 mmol/L Blood 06/09/2024 11:2 6 PM CDT 06/09/2024 11:37 PM CDT Martha Butterfield MD LAB BLOOD ORDERABLES F inal Result Performing Organization Address [facility] Co de Phone Number [facility] [place] [employer] [place] [address] * (ABNORMAL) eGFR (06/09/2024 6:33 PM CDT) eGFR 30(L) >=60 mL/min/1. 73 m2 Comment: Interpretive Data Reference Interval Normal >/= 90 mL/min/1.73m2 Mildly decreased* 60 - 89 mL/min/1.73m2 Mildly to moderately decreased 45 - 59 mL/min/1.73m2 Moderately to severely decreased 30 - 44 mL/min/1.73m2 Severely decreased 15 - 29 mL/min/1.73m2 Kidney Failure < 15 mL/min/1.73m2 *Relative to young adult level Estimated glomerular filtration rate is determined by the 2020 CKD-EPI equation recommended by the National Kidney Foundation (A Unifying Approach to GFR Estimation: Recommendations of the NKF-ASK Task Force on Reassessing the Inclusion of Race in Diagnosing Kidney Disease, JASN 2020). The CKD-EPI equation should not be used for patients with unstable renal function and has not been validated in children and those over 70. Current interpretive data was last reviewed 2021. Blood 06/09/2024 6:33 PM CDT 06/09/2024 6:48 PM CDT Martha Butterfield MD LAB BLOOD ORDERABLES F inal Result Performing Organization Address City/[facility]/ZIP Co de Phone Number [facility] [place] [place] [address] * (ABNORMAL) Renal function panel (06/09/2024 6:33 PM CDT) Sodium 141 135 - 145 mmol/L Potassium, pl 5.5(H) 3.3 - 4.9 mmol/L [facility] Comment:Hemolyzed; Potassium value may be falsely elevated by as much as 0.3-0.5 mmol/L. Suggest redraw and reanalysis. Chloride 112(H) 97 - 110 mmol/L [facility] CO2 17(L) 22 - 32 mmol/L [facility] Anion gap 12 2 - 15 mmol/L [facility] BUN 32(H) 6 - 25 mg/dL [facility] Creatinine 2.08(H) 0.60 - 1.10 mg/dL [facility] Glucose 111 70 - 199 mg/dL [facility] Comment: Interpretive Data Fasting glucose >/= 126 mg/dl is diagnostic for diabetes. Fasting is defined as no caloric intake for at least 8 hours. Fasting glucose between 100 mg/dl to 125 mg/dl is diagnostic of prediabetes. In a patient with classic symptoms of hyperglycemia or hyperglycemic crisis, a random glucose >/= 200 mg/dl is diagnostic for diabetes. In the absence of unequivocal hyperglycemia, results should be confirmed by repeat testing. The classification and Diagnosis of Diabetes Diabetes Care 202; 46: S19-S40. Current interpretive data was last revised 2022. Calcium 8.7 8.5 - 10.3 mg/dL [facility] Phosphorus, pl 4.0 2.3 - 4.5 mg/dL [facility] Albumin 3.1(L) 3.5 - 5.0 g/dL [facility] Blood 06/09/2024 6:33 PM CDT 06/09/2024 6:48 PM CDT us Martha Butterfield MD LAB BLOOD ORDERABLES F inal Result [facility] Department [place] [address] * (ABNORMAL) eGFR (06/09/2024 5:12 AM CDT) eGFR 30(L) >=60 mL/min/1. 73 m2 Comment: Interpretive Data Reference Interval Normal >/= 90 mL/min/1.73m2 Mildly decreased* 60 - 89 mL/min/1.73m2 Mildly to moderately decreased 45 - 59 mL/min/1.73m2 Moderately to severely decreased 30 - 44 mL/min/1.73m2 Severely decreased 15 - 29 mL/min/1.73m2 Kidney Failure < 15 mL/min/1.73m2 *Relative to young adult level Estimated glomerular filtration rate is determined by the 2020 CKD-EPI equation recommended by the National Kidney Foundation (A Unifying Approach to GFR Estimation: Recommendations of the NKF-ASK Task Force on Reassessing the Inclusion of Race in Diagnosing Kidney Disease, JASN 202). The CKD-EPI equation should not be used for patients with unstable renal function and has not been validated in children and those over 70. Current interpretive data was last reviewed 2021. Blood 06/09/2024 5:12 AM CDT 06/09/2024 5:43 AM CDT us Patricia Davidson MD PhD LAB BLOOD ORDERABLES Final Result [facility] [place] [address] * Differential, auto (06/09/2024 5:12 AM CDT) Pathologist [facility] Neutrophil abs 2.5 1.5 - 6.5 K/cumm Imm gran abs 0.0 0.0 - 0.1 K/cumm [facility] Lymphocyte abs 1.0 0.8 - 3.3 K/cumm [facility] Monocyte abs 0.4 0.2 - 0.8 K/cumm [facility] Eosinophil abs 0.2 0.0 - 0.5 K/cumm [facility] Basophil abs 0.0 0.0 - 0.1 K/cumm [facility] Neutrophil pct 61.7 % [facility] Comment: Interpretive Data Percent cell count reference ranges are not reported, since discordance with absolute values may lead to misinterpretation of CBC data. Current Interpretive Data was last revised on 2017. Imm gran pct 0.2 % [facility] Comment: Interpretive Data Percent cell count reference ranges are not reported, since discordance with absolute values may lead to misinterpretation of CBC data. Current Interpretive Data was last revised on 2017. Lymphocyte pct 25.2 % [facility] Comment: Interpretive Data Percent cell count reference ranges are not reported, since discordance with absolute values may lead to misinterpretation of CBC data. Current Interpretive Data was last revised on 2017. Monocyte pct 8.8 % [facility] Comment: Interpretive Data Percent cell count reference ranges are not reported, since discordance with absolute values may lead to misinterpretation of CBC data. Current Interpretive Data was last revised on 2017. Eosinophil pct 3.9 % [facility] Comment: Interpretive Data Percent cell count reference ranges are not reported, since discordance with absolute values may lead to misinterpretation of CBC data. Current Interpretive Data was last revised on 2017. Basophil pct 0.2 % [facility] Comment: Interpretive Data Percent cell count reference ranges are not reported, since discordance with absolute values may lead to misinterpretation of CBC data. Current Interpretive Data was last revised on 2017. Blood 06/09/2024 5:12 AM CDT 06/09/2024 5:43 AM CDT Martha Butterfield MD LAB BLOOD ORDERABLES F inal Result [facility] [place] [address] * Tacrolimus level trough (06/09/2024 5:12 AM CDT) Tacrolimus trough 7.5 ng/mL Comment: Interpretive Data Testing performed by liquid chromatography-tandem mass spectrometry. Therapeutic concentrations vary depending on type of transplanted organ and time elapsed since transplant. Typical trough concentrations range from 5-15 ng/mL. This test was developed and its performance characteristics determined by the [facility] consistent with CLIA requirements. This test has not been cleared or approved by the US Food and Drug administration. Current interpretive data last reviewed 2019. Blood 06/09/2024 5:12 AM CDT 06/09/2024 5:43 AM CDT us Patricia Davidson MD PhD LAB BLOOD ORDERABLES Final Result Performing Organization Address [facility] Co de Phone Number [facility] [place] [address] * (ABNORMAL) CBC with auto differential (06/09/2024 5:12 AM CDT) Pathologist [facility] WBC 4.1 3.8 - 9.9 K/cumm Hgb 10.9(L) 11.9 - 15.5 g/dL [facility] Hct 32.1(L) 35.6 - 45.5 % [facility] Plt 104(L) 150 - 400 K/cumm [facility] MPV 11.5 9.1 - 12.3 fL [facility] RBC 3.05(L) 3.90 - 5.20 M/cumm [facility] MCV 105.2(H) 81.3 - 96.4 fL [facility] MCH 35.7(H) 27.1 - 33.3 pg [facility] MCHC 34.0 32.3 - 35.7 g/dL [facility] RDW CV 14.7 11.1 - 14.9 % [facility] RDW SD 55.7(H) 35.7 - 48.1 fL [facility] NRBC abs 0.00 0.00 - 0.01 K/cumm [facility] Blood 06/09/2024 5:12 AM CDT 06/09/2024 5:43 AM CDT us Martha Butterfield MD LAB BLOOD ORDERABLES F inal Result Performing Organization Address City/[facility]/ZIP Co de Phone Number [facility] [place] [address] * (ABNORMAL) Renal function panel (06/09/2024 5:12 AM CDT) Sodium 144 135 - 145 mmol/L Potassium, pl 5.1(H) 3.3 - 4.9 mmol/L [facility] Chloride 111(H) 97 - 110 mmol/L [facility] CO2 23 22 - 32 mmol/L [facility] Anion gap 10 2 - 15 mmol/L [facility] BUN 33(H) 6 - 25 mg/dL [facility] Creatinine 2.08(H) 0.60 - 1.10 mg/dL [facility] Glucose 104 70 - 199 mg/dL [facility] Comment: Interpretive Data Fasting glucose >/= 126 mg/dl is diagnostic for diabetes. Fasting is defined as no caloric intake for at least 8 hours. Fasting glucose between 100 mg/dl to 125 mg/dl is diagnostic of prediabetes. In a patient with classic symptoms of hyperglycemia or hyperglycemic crisis, a random glucose >/= 200 mg/dl is diagnostic for diabetes. In the absence of unequivocal hyperglycemia, results should be confirmed by repeat testing. The classification and Diagnosis of Diabetes Diabetes Care 202; 46: S19-S40. Current interpretive data was last revised 2022. Calcium 8.7 8.5 - 10.3 mg/dL [facility] Phosphorus, pl 4.4 2.3 - 4.5 mg/dL [facility] Albumin 3.5 3.5 - 5.0 g/dL [facility] Blood 06/09/2024 5:12 AM CDT 06/09/2024 5:43 AM CDT us Patricia Davidson MD PhD LAB BLOOD ORDERABLES Final Result [facility] [place] [address] * (ABNORMAL) Potassium, whole blood (06/08/2024 8:37 AM CDT) Potassium, bld 5.0(H) 3.3 - 4.9 mmol/L Blood 06/08/2024 8:37 AM CDT 06/08/2024 9:17 AM CDT us Martha Butterfield MD LAB BLOOD ORDERABLES F inal Result Performing Organization Address [facility] de Phone Number [facility] [place] [address] * (ABNORMAL) eGFR (06/08/2024 5:40 AM CDT) eGFR 30(L) >=60 mL/min/1. 73 m2 Comment: Interpretive Data Reference Interval Normal >/= 90 mL/min/1.73m2 Mildly decreased* 60 - 89 mL/min/1.73m2 Mildly to moderately decreased 45 - 59 mL/min/1.73m2 Moderately to severely decreased 30 - 44 mL/min/1.73m2 Severely decreased 15 - 29 mL/min/1.73m2 Kidney Failure < 15 mL/min/1.73m2 *Relative to young adult level Estimated glomerular filtration rate is determined by the 2020 CKD-EPI equation recommended by the National Kidney Foundation (A Unifying Approach to GFR Estimation: Recommendations of the NKF-ASK Task Force on Reassessing the Inclusion of Race in Diagnosing Kidney Disease, JASN 2020). The CKD-EPI equation should not be used for patients with unstable renal function and has not been validated in children and those over 70. Current interpretive data was last reviewed 2021. Blood 06/08/2024 5:40 AM CDT 06/08/2024 6:19 AM CDT us Patricia Davidson MD PhD LAB BLOOD ORDERABLES Final Result Performing Organization Address City/[facility] Co de Phone Number [facility] [place] [address] * Tacrolimus level trough (06/08/2024 5:40 AM CDT) Tacrolimus trough 6.6 ng/mL Comment: Interpretive Data Testing performed by liquid chromatography-tandem mass spectrometry. Therapeutic concentrations vary depending on type of transplanted organ and time elapsed since transplant. Typical trough concentrations range from 5-15 ng/mL. This test was developed and its performance characteristics determined by the [facility] consistent with CLIA requirements. This test has not been cleared or approved by the US Food and Drug administration. Current interpretive data last reviewed 2019. Blood 06/08/2024 5:40 AM CDT 06/08/2024 6:19 AM CDT us Patricia Davidson MD PhD LAB BLOOD ORDERABLES Final Result [facility] [place] [address] * (ABNORMAL) Renal function panel (06/08/2024 5:40 AM CDT) Sodium 144 135 - 145 mmol/L Potassium, pl 5.1(H) 3.3 - 4.9 mmol/L [facility] Chloride 114(H) 97 - 110 mmol/L [facility] CO2 23 22 - 32 mmol/L [facility] Anion gap 7 2 - 15 mmol/L [facility] BUN 31(H) 6 - 25 mg/dL [facility] Creatinine 2.07(H) 0.60 - 1.10 mg/dL [facility] Glucose 100 70 - 199 mg/dL [facility] Comment: Interpretive Data Fasting glucose >/= 126 mg/dl is diagnostic for diabetes. Fasting is defined as no caloric intake for at least 8 hours. Fasting glucose between 100 mg/dl to 125 mg/dl is diagnostic of prediabetes. In a patient with classic symptoms of hyperglycemia or hyperglycemic crisis, a random glucose >/= 200 mg/dl is diagnostic for diabetes. In the absence of unequivocal hyperglycemia, results should be confirmed by repeat testing. The classification and Diagnosis of Diabetes Diabetes Care 202; 46: S19-S40. Current interpretive data was last revised 2022. Calcium 8.7 8.5 - 10.3 mg/dL [facility] Phosphorus, pl 4.5 2.3 - 4.5 mg/dL [facility] Albumin 3.3(L) 3.5 - 5.0 g/dL [facility] Blood 06/08/2024 5:40 AM CDT 06/08/2024 6:19 AM CDT Patricia Davidson MD PhD LAB BLOOD ORDERABLES Final Result Performing Organization Address City/[facility] Co de Phone Number [facility] [place] [address] * (ABNORMAL) eGFR (06/07/2024 5:17 AM CDT) Pathologist [facility] eGFR 33(L) >=60 mL/min/1. 73 m2 Comment: Interpretive Data Reference Interval Normal >/= 90 mL/min/1.73m2 Mildly decreased* 60 - 89 mL/min/1.73m2 Mildly to moderately decreased 45 - 59 mL/min/1.73m2 Moderately to severely decreased 30 - 44 mL/min/1.73m2 Severely decreased 15 - 29 mL/min/1.73m2 Kidney Failure < 15 mL/min/1.73m2 *Relative to young adult level Estimated glomerular filtration rate is determined by the 2020 CKD-EPI equation recommended by the National Kidney Foundation (A Unifying Approach to GFR Estimation: Recommendations of the NKF-ASK Task Force on Reassessing the Inclusion of Race in Diagnosing Kidney Disease, JASN 2020). The CKD-EPI equation should not be used for patients with unstable renal function and has not been validated in children and those over 70. Current interpretive data was last reviewed 2021. Blood 06/07/2024 5:17 AM CDT 06/07/2024 6:13 AM CDT us Patricia Davidson MD PhD LAB BLOOD ORDERABLES Final Result Performing Organization Address City/[facility]/ZIP Co de Phone Number [facility] [place] [address] * Differential, auto (06/07/2024 5:17 AM CDT) [facility] Neutrophil abs 2.9 1.5 - 6.5 K/cumm Imm gran abs 0.0 0.0 - 0.1 K/cumm [facility] Lymphocyte abs 1.1 0.8 - 3.3 K/cumm [facility] Monocyte abs 0.3 0.2 - 0.8 K/cumm [facility] Eosinophil abs 0.2 0.0 - 0.5 K/cumm [facility] Basophil abs 0.0 0.0 - 0.1 K/cumm [facility] Neutrophil pct 64.2 % [facility] Comment: Interpretive Data Percent cell count reference ranges are not reported, since discordance with absolute values may lead to misinterpretation of CBC data. Current Interpretive Data was last revised on 2017. Imm gran pct 0.2 % [facility] Comment: Interpretive Data Percent cell count reference ranges are not reported, since discordance with absolute values may lead to misinterpretation of CBC data. Current Interpretive Data was last revised on 2017. Lymphocyte pct 24.2 % [facility] Comment: Interpretive Data Percent cell count reference ranges are not reported, since discordance with absolute values may lead to misinterpretation of CBC data. Current Interpretive Data was last revised on 2017. Monocyte pct 7.2 % [facility] Comment: Interpretive Data Percent cell count reference ranges are not reported, since discordance with absolute values may lead to misinterpretation of CBC data. Current Interpretive Data was last revised on 2017. Eosinophil pct 4.0 % [facility] Comment: Interpretive Data Percent cell count reference ranges are not reported, since discordance with absolute values may lead to misinterpretation of CBC data. Current Interpretive Data was last revised on 2017. Basophil pct 0.2 % [facility] Comment: Interpretive Data Percent cell count reference ranges are not reported, since discordance with absolute values may lead to misinterpretation of CBC data. Current Interpretive Data was last revised on 2017. Blood 06/07/2024 5:17 AM CDT 06/07/2024 6:14 AM CDT us Martha Butterfield MD LAB BLOOD ORDERABLES F inal Result [facility] [place] [address] * Tacrolimus level trough (06/07/2024 5:17 AM CDT) [facility] Tacrolimus trough 6.2 ng/mL Comment: Interpretive Data Testing performed by liquid chromatography-tandem mass spectrometry. Therapeutic concentrations vary depending on type of transplanted organ and time elapsed since transplant. Typical trough concentrations range from 5-15 ng/mL. This test was developed and its performance characteristics determined by the [facility] consistent with CLIA requirements. This test has not been cleared or approved by the US Food and Drug administration. Current interpretive data last reviewed 2019. Blood 06/07/2024 5:17 AM CDT 06/07/2024 6:14 AM CDT us Patricia Davidson MD PhD LAB BLOOD ORDERABLES Final Result [facility] [place] [address] * (ABNORMAL) CBC with auto differential (06/07/2024 5:17 AM CDT) [facility] WBC 4.5 3.8 - 9.9 K/cumm Hgb 10.7(L) 11.9 - 15.5 g/dL [facility] Hct 31.3(L) 35.6 - 45.5 % [facility] Plt 100(L) 150 - 400 K/cumm [facility] MPV 11.8 9.1 - 12.3 fL [facility] RBC 2.96(L) 3.90 - 5.20 M/cumm [facility] MCV 105.7(H) 81.3 - 96.4 fL [facility] MCH 36.1(H) 27.1 - 33.3 pg [facility] MCHC 34.2 32.3 - 35.7 g/dL [facility] RDW CV 14.2 11.1 - 14.9 % [facility] RDW SD 53.7(H) 35.7 - 48.1 fL [facility] NRBC abs 0.00 0.00 - 0.01 K/cumm [facility] Blood 06/07/2024 5:17 AM CDT 06/07/2024 6:14 AM CDT Martha Butterfield MD LAB BLOOD ORDERABLES F inal Result [facility] [place] [address] * (ABNORMAL) Renal function panel (06/07/2024 5:17 AM CDT) Sodium 137 135 - 145 mmol/L Potassium, pl 4.9 3.3 - 4.9 mmol/L [facility] Chloride 108 97 - 110 mmol/L [facility] CO2 21(L) 22 - 32 mmol/L [facility] Anion gap 8 2 - 15 mmol/L [facility] BUN 28(H) 6 - 25 mg/dL [facility] Creatinine 1.92(H) 0.60 - 1.10 mg/dL [facility] Glucose 125 70 - 199 mg/dL [facility] Comment: Interpretive Data Fasting glucose >/= 126 mg/dl is diagnostic for diabetes. Fasting is defined as no caloric intake for at least 8 hours. Fasting glucose between 100 mg/dl to 125 mg/dl is diagnostic of prediabetes. In a patient with classic symptoms of hyperglycemia or hyperglycemic crisis, a random glucose >/= 200 mg/dl is diagnostic for diabetes. In the absence of unequivocal hyperglycemia, results should be confirmed by repeat testing. The classification and Diagnosis of Diabetes Diabetes Care 2021; 46: S19-S40. Current interpretive data was last revised 2022. Calcium 8.1(L) 8.5 - 10.3 mg/dL [facility] Phosphorus, pl 3.8 2.3 - 4.5 mg/dL [facility] Albumin 3.4(L) 3.5 - 5.0 g/dL [facility] Blood 06/07/2024 5:17 AM CDT 06/07/2024 6:13 AM CDT us Patricia Davidson MD PhD LAB BLOOD ORDERABLES Final Result [facility] [place] [address] * Potassium, whole blood (06/06/2024 11:29 AM CDT) Potassium, bld 4.9 3.3 - 4.9 mmol/L Blood 06/06/2024 11:2 9 AM CDT 06/06/2024 12:20 PM CDT Martha Butterfield MD LAB BLOOD ORDERABLES F inal Result Performing Organization Address City/[facility] Co de Phone Number [facility] [place] [address] * (ABNORMAL) eGFR (06/06/2024 4:28 AM CDT) eGFR 32(L) >=60 mL/min/1. 73 m2 Comment: Interpretive Data Reference Interval Normal >/= 90 mL/min/1.73m2 Mildly decreased* 60 - 89 mL/min/1.73m2 Mildly to moderately decreased 45 - 59 mL/min/1.73m2 Moderately to severely decreased 30 - 44 mL/min/1.73m2 Severely decreased 15 - 29 mL/min/1.73m2 Kidney Failure < 15 mL/min/1.73m2 *Relative to young adult level Estimated glomerular filtration rate is determined by the 2020 CKD-EPI equation recommended by the National Kidney Foundation (A Unifying Approach to GFR Estimation: Recommendations of the NKF-ASK Task Force on Reassessing the Inclusion of Race in Diagnosing Kidney Disease, JASN 2020). The CKD-EPI equation should not be used for patients with unstable renal function and has not been validated in children and those over 70. Current interpretive data was last reviewed 2021. Blood 06/06/2024 4:28 AM CDT 06/06/2024 5:36 AM CDT us Patricia Davidson MD PhD LAB BLOOD ORDERABLES Final Result Performing Organization Address [facility] Co de Phone Number [facility] [place] [employer] [place] [address] * Tacrolimus level trough (06/06/2024 4:28 AM CDT) Pathologist [facility] Tacrolimus trough 5.9 ng/mL Comment: Interpretive Data Testing performed by liquid chromatography-tandem mass spectrometry. Therapeutic concentrations vary depending on type of transplanted organ and time elapsed since transplant. Typical trough concentrations range from 5-15 ng/mL. This test was developed and its performance characteristics determined by the [facility] consistent with CLIA requirements. This test has not been cleared or approved by the US Food and Drug administration. Current interpretive data last reviewed 2019. Blood 06/06/2024 4:28 AM CDT 06/06/2024 5:44 AM CDT Result [facility] Patricia Davidson MD PhD LAB BLOOD ORDERABLES Final Result Performing Organization Address [facility] Co de Phone Number [facility] [place] [address] * (ABNORMAL) Renal function panel (06/06/2024 4:28 AM CDT) Pathologist [facility] Sodium 143 135 - 145 mmol/L Potassium, pl 5.3(H) 3.3 - 4.9 mmol/L [facility] Chloride 113(H) 97 - 110 mmol/L [facility] CO2 23 22 - 32 mmol/L [facility] Anion gap 7 2 - 15 mmol/L [facility] BUN 30(H) 6 - 25 mg/dL [facility] Creatinine 1.99(H) 0.60 - 1.10 mg/dL [facility] Glucose 86 70 - 199 mg/dL [facility] Comment: Interpretive Data Fasting glucose >/= 126 mg/dl is diagnostic for diabetes. Fasting is defined as no caloric intake for at least 8 hours. Fasting glucose between 100 mg/dl to 125 mg/dl is diagnostic of prediabetes. In a patient with classic symptoms of hyperglycemia or hyperglycemic crisis, a random glucose >/= 200 mg/dl is diagnostic for diabetes. In the absence of unequivocal hyperglycemia, results should be confirmed by repeat testing. The classification and Diagnosis of Diabetes Diabetes Care 202; 46: S19-S40. Current interpretive data was last revised 2022. Calcium 8.5 8.5 - 10.3 mg/dL [facility] Phosphorus, pl 4.1 2.3 - 4.5 mg/dL [facility] Albumin 3.1(L) 3.5 - 5.0 g/dL [facility] Blood 06/06/2024 4:28 AM CDT 06/06/2024 5:36 AM CDT us Patricia Davidson MD PhD LAB BLOOD ORDERABLES Final Result [facility] [place] [address] * (ABNORMAL) eGFR (06/05/2024 5:49 AM CDT) eGFR 32(L) >=60 mL/min/1. 73 m2 Comment: Interpretive Data Reference Interval Normal >/= 90 mL/min/1.73m2 Mildly decreased* 60 - 89 mL/min/1.73m2 Mildly to moderately decreased 45 - 59 mL/min/1.73m2 Moderately to severely decreased 30 - 44 mL/min/1.73m2 Severely decreased 15 - 29 mL/min/1.73m2 Kidney Failure < 15 mL/min/1.73m2 *Relative to young adult level Estimated glomerular filtration rate is determined by the 2020 CKD-EPI equation recommended by the National Kidney Foundation (A Unifying Approach to GFR Estimation: Recommendations of the NKF-ASK Task Force on Reassessing the Inclusion of Race in Diagnosing Kidney Disease, JASN 2020). The CKD-EPI equation should not be used for patients with unstable renal function and has not been validated in children and those over 70. Current interpretive data was last reviewed 2021. Blood 06/05/2024 5:49 AM CDT 06/05/2024 6:48 AM CDT us Patricia Davidson MD PhD LAB BLOOD ORDERABLES Final Result [facility] [place] [address] * Differential, auto (06/05/2024 5:49 AM CDT) Neutrophil abs 2.5 1.5 - 6.5 K/cumm Imm gran abs 0.0 0.0 - 0.1 K/cumm [facility] Lymphocyte abs 1.0 0.8 - 3.3 K/cumm [facility] Monocyte abs 0.4 0.2 - 0.8 K/cumm [facility] Eosinophil abs 0.1 0.0 - 0.5 K/cumm [facility] Basophil abs 0.0 0.0 - 0.1 K/cumm [facility] Neutrophil pct 62.5 % [facility] Comment: Interpretive Data Percent cell count reference ranges are not reported, since discordance with absolute values may lead to misinterpretation of CBC data. Current Interpretive Data was last revised on 2017. Imm gran pct 0.3 % [facility] Comment: Interpretive Data Percent cell count reference ranges are not reported, since discordance with absolute values may lead to misinterpretation of CBC data. Current Interpretive Data was last revised on 2017. Lymphocyte pct 24.3 % [facility] Comment: Interpretive Data Percent cell count reference ranges are not reported, since discordance with absolute values may lead to misinterpretation of CBC data. Current Interpretive Data was last revised on 2017. Monocyte pct 9.3 % [facility] Comment: Interpretive Data Percent cell count reference ranges are not reported, since discordance with absolute values may lead to misinterpretation of CBC data. Current Interpretive Data was last revised on 2017. Eosinophil pct 3.3 % [facility] Comment: Interpretive Data Percent cell count reference ranges are not reported, since discordance with absolute values may lead to misinterpretation of CBC data. Current Interpretive Data was last revised on 2017. Basophil pct 0.3 % [facility] Comment: Interpretive Data Percent cell count reference ranges are not reported, since discordance with absolute values may lead to misinterpretation of CBC data. Current Interpretive Data was last revised on 2017. Blood 06/05/2024 5:49 AM CDT 06/05/2024 6:48 AM CDT Patricia Davidson MD PhD LAB BLOOD ORDERABLES Final Result Performing Organization Address [facility] de Phone Number [facility] [place] [address] * Tacrolimus level trough (06/05/2024 5:49 AM CDT) [facility] Tacrolimus trough 5.9 ng/mL Comment: Interpretive Data Testing performed by liquid chromatography-tandem mass spectrometry. Therapeutic concentrations vary depending on type of transplanted organ and time elapsed since transplant. Typical trough concentrations range from 5-15 ng/mL. This test was developed and its performance characteristics determined by the [facility] consistent with CLIA requirements. This test has not been cleared or approved by the US Food and Drug administration. Current interpretive data last reviewed 2019. Blood 06/05/2024 5:49 AM CDT 06/05/2024 6:48 AM CDT Patricia Davidson MD PhD LAB BLOOD ORDERABLES Final Result Performing Organization Address [facility] de Phone Number [facility] [place] [address] * (ABNORMAL) CBC with auto differential (06/05/2024 5:49 AM CDT) [facility] WBC 4.0 3.8 - 9.9 K/cumm Hgb 10.9(L) 11.9 - 15.5 g/dL [facility] Hct 31.7(L) 35.6 - 45.5 % [facility] Plt 102(L) 150 - 400 K/cumm [facility] MPV 11.6 9.1 - 12.3 fL [facility] RBC 3.05(L) 3.90 - 5.20 M/cumm [facility] MCV 103.9(H) 81.3 - 96.4 fL [facility] MCH 35.7(H) 27.1 - 33.3 pg [facility] MCHC 34.4 32.3 - 35.7 g/dL [facility] RDW CV 14.0 11.1 - 14.9 % [facility] RDW SD 52.3(H) 35.7 - 48.1 fL [facility] NRBC abs 0.00 0.00 - 0.01 K/cumm [facility] Blood 06/05/2024 5:49 AM CDT 06/05/2024 6:48 AM CDT us Patricia Davidson MD PhD LAB BLOOD ORDERABLES Final Result [facility] [place] [address] * (ABNORMAL) Renal function panel (06/05/2024 5:49 AM CDT) Sodium 140 135 - 145 mmol/L Potassium, pl 4.6 3.3 - 4.9 mmol/L [facility] Chloride 109 97 - 110 mmol/L [facility] CO2 22 22 - 32 mmol/L [facility] Anion gap 9 2 - 15 mmol/L [facility] BUN 29(H) 6 - 25 mg/dL [facility] Creatinine 1.99(H) 0.60 - 1.10 mg/dL [facility] Glucose 98 70 - 199 mg/dL [facility] Comment: Interpretive Data Fasting glucose >/= 126 mg/dl is diagnostic for diabetes. Fasting is defined as no caloric intake for at least 8 hours. Fasting glucose between 100 mg/dl to 125 mg/dl is diagnostic of prediabetes. In a patient with classic symptoms of hyperglycemia or hyperglycemic crisis, a random glucose >/= 200 mg/dl is diagnostic for diabetes. In the absence of unequivocal hyperglycemia, results should be confirmed by repeat testing. The classification and Diagnosis of Diabetes Diabetes Care 202; 46: S19-S40. Current interpretive data was last revised 2022. Calcium 8.6 8.5 - 10.3 mg/dL [facility] Phosphorus, pl 4.3 2.3 - 4.5 mg/dL [facility] Albumin 3.5 3.5 - 5.0 g/dL [facility] Blood 06/05/2024 5:49 AM CDT 06/05/2024 6:48 AM CDT us Patricia Davidson MD PhD LAB BLOOD ORDERABLES Final Result [facility] [place] [address] * ECG 12 lead (06/04/2024 5:41 AM CDT) Ventricular Rate EKG/Min 67 BPM [facility] Atrial Rate 67 BPM [facility] AK-Interval (MSEC) 202 ms [facility] QRS-Interval (MSEC) 74 ms [facility] QT-Interval (MSEC) 426 ms [facility] QTc 450 ms [facility] P [place] 5 degrees [facility] R [place] -19 degrees [facility] T [place] 53 degrees [facility] Diagnosis Normal sinus rhythm 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 73 m2 Comment: Interpretive Data Reference Interval Normal >/= 90 mL/min/1.73m2 Mildly decreased* 60 - 89 mL/min/1.73m2 Mildly to moderately decreased 45 - 59 mL/min/1.73m2 Moderately to severely decreased 30 - 44 mL/min/1.73m2 Severely decreased 15 - 29 mL/min/1.73m2 Kidney Failure < 15 mL/min/1.73m2 *Relative to young adult level Estimated glomerular filtration rate is determined by the 2020 CKD-EPI equation recommended by the National Kidney Foundation (A Unifying Approach to GFR Estimation: Recommendations of the NKF-ASK Task Force on Reassessing the Inclusion of Race in Diagnosing Kidney Disease, JASN 2020). The CKD-EPI equation should not be used for patients with unstable renal function and has not been validated in children and those over 70. Current interpretive data was last reviewed 2021. Blood 06/04/2024 5:10 AM CDT 06/04/2024 6:23 AM CDT Patricia Davidson MD PhD LAB BLOOD ORDERABLES Final Result [facility] [place] [address] * Differential, auto (06/04/2024 5:10 AM CDT) Pathologist [facility] Neutrophil abs 3.1 1.5 - 6.5 K/cumm Imm gran abs 0.0 0.0 - 0.1 K/cumm [facility] Lymphocyte abs 1.3 0.8 - 3.3 K/cumm [facility] Monocyte abs 0.5 0.2 - 0.8 K/cumm [facility] Eosinophil abs 0.2 0.0 - 0.5 K/cumm [facility] Basophil abs 0.0 0.0 - 0.1 K/cumm [facility] Neutrophil pct 61.7 % [facility] Comment: Interpretive Data Percent cell count reference ranges are not reported, since discordance with absolute values may lead to misinterpretation of CBC data. Current Interpretive Data was last revised on 2017. Imm gran pct 0.4 % [facility] Comment: Interpretive Data Percent cell count reference ranges are not reported, since discordance with absolute values may lead to misinterpretation of CBC data. Current Interpretive Data was last revised on 2017. Lymphocyte pct 25.2 % [facility] Comment: Interpretive Data Percent cell count reference ranges are not reported, since discordance with absolute values may lead to misinterpretation of CBC data. Current Interpretive Data was last revised on 2017. Monocyte pct 9.1 % [facility] Comment: Interpretive Data Percent cell count reference ranges are not reported, since discordance with absolute values may lead to misinterpretation of CBC data. Current Interpretive Data was last revised on 2017. Eosinophil pct 3.0 % [facility] Comment: Interpretive Data Percent cell count reference ranges are not reported, since discordance with absolute values may lead to misinterpretation of CBC data. Current Interpretive Data was last revised on 2017. Basophil pct 0.6 % [facility] Comment: Interpretive Data Percent cell count reference ranges are not reported, since discordance with absolute values may lead to misinterpretation of CBC data. Current Interpretive Data was last revised on 2017. Blood 06/04/2024 5:10 AM CDT 06/04/2024 6:22 AM CDT Patricia Davidson MD PhD LAB BLOOD ORDERABLES Final Result [facility] [place] [address] * Tacrolimus level trough (06/04/2024 5:10 AM CDT) Tacrolimus trough 6.1 ng/mL Comment: Interpretive Data Testing performed by liquid chromatography-tandem mass spectrometry. Therapeutic concentrations vary depending on type of transplanted organ and time elapsed since transplant. Typical trough concentrations range from 5-15 ng/mL. This test was developed and its performance characteristics determined by the [facility] consistent with CLIA requirements. This test has not been cleared or approved by the US Food and Drug administration. Current interpretive data last reviewed 2019. Blood 06/04/2024 5:10 AM CDT 06/04/2024 6:22 AM CDT us Patricia Davidson MD PhD LAB BLOOD ORDERABLES Final Result Performing Organization Address [facility] Co de Phone Number [facility] [place] [address] * (ABNORMAL) CBC with auto differential (06/04/2024 5:10 AM CDT) Pathologist [facility] WBC 5.0 3.8 - 9.9 K/cumm Hgb 11.2(L) 11.9 - 15.5 g/dL [facility] Hct 32.3(L) 35.6 - 45.5 % [facility] Plt 102(L) 150 - 400 K/cumm [facility] MPV 11.6 9.1 - 12.3 fL [facility] RBC 3.13(L) 3.90 - 5.20 M/cumm [facility] MCV 103.2(H) 81.3 - 96.4 fL [facility] MCH 35.8(H) 27.1 - 33.3 pg [facility] MCHC 34.7 32.3 - 35.7 g/dL [facility] RDW CV 13.7 11.1 - 14.9 % [facility] RDW SD 51.2(H) 35.7 - 48.1 fL [facility] NRBC abs 0.00 0.00 - 0.01 K/cumm [facility] Blood 06/04/2024 5:10 AM CDT 06/04/2024 6:22 AM CDT us Patricia Davidson MD PhD LAB BLOOD ORDERABLES Final Result Performing Organization Address City/[facility]/ZIP Co de Phone Number [facility] Department [place] [employer] [place] [address] * (ABNORMAL) Renal function panel (06/04/2024 5:10 AM CDT) Pathologist [facility] Sodium 144 135 - 145 mmol/L Potassium, pl 4.8 3.3 - 4.9 mmol/L [facility] Chloride 112(H) 97 - 110 mmol/L [facility] CO2 23 22 - 32 mmol/L [facility] Anion gap 9 2 - 15 mmol/L [facility] BUN 25 6 - 25 mg/dL [facility] Creatinine 1.98(H) 0.60 - 1.10 mg/dL [facility] Glucose 81 70 - 199 mg/dL [facility] Comment: Interpretive Data Fasting glucose >/= 126 mg/dl is diagnostic for diabetes. Fasting is defined as no caloric intake for at least 8 hours. Fasting glucose between 100 mg/dl to 125 mg/dl is diagnostic of prediabetes. In a patient with classic symptoms of hyperglycemia or hyperglycemic crisis, a random glucose >/= 200 mg/dl is diagnostic for diabetes. In the absence of unequivocal hyperglycemia, results should be confirmed by repeat testing. The classification and Diagnosis of Diabetes Diabetes Care 2021; 46: S19-S40. Current interpretive data was last revised 2022. Calcium 8.9 8.5 - 10.3 mg/dL [facility] Phosphorus, pl 4.3 2.3 - 4.5 mg/dL [facility] Albumin 3.4(L) 3.5 - 5.0 g/dL [facility] Blood 06/04/2024 5:10 AM CDT 06/04/2024 6:23 AM CDT us Patricia Davidson MD PhD LAB BLOOD ORDERABLES Final Result [facility] Department [place] [address] * Folate (06/04/2024 12:39 AM CDT) [facility] Signature Folic acid See Comment >=5.0 ng/mL Comment: Credited; Hemolyzed Specimen Telephone report made to: Luz Maria Iyer RN on 06/04/2024 08:49:44 CDT by SAUD . Blood 06/04/2024 12:3 9 AM CDT 06/04/2024 1:24 AM CDT us Shea Babcock MD LAB BLOOD ORDERABLE S Final Result Performing Organization Address [facility] Co de Phone Number [facility] [place] [address] * Protein / creatinine ratio, urine, random (06/03/2024 6:15 PM CDT) Pathologist [facility] Protein, ur, quant <5.0 mg/dL Comment: Interpretive Data No reference range established. Current interpretive data was last revised 2018. Creatinine Ur 39.1 mg/dL [facility] Comment: Interpretive Data No reference range established. Current interpretive data was last revised 2018. Protein/creatinin e ratio <127.9 0.0 - 180.0 mg/g CR [facility] Urine 06/03/2024 6:15 PM CDT 06/03/2024 7:42 PM CDT us Pineda Barrios MD LAB URINE ORDE RABLES Final Result Performing Organization Address [facility] Co de Phone Number [facility] [place] [address] * (ABNORMAL) eGFR (06/03/2024 8:54 AM CDT) Pathologist [facility] eGFR 33(L) >=60 mL/min/1. 73 m2 Comment: Interpretive Data Reference Interval Normal >/= 90 mL/min/1.73m2 Mildly decreased* 60 - 89 mL/min/1.73m2 Mildly to moderately decreased 45 - 59 mL/min/1.73m2 Moderately to severely decreased 30 - 44 mL/min/1.73m2 Severely decreased 15 - 29 mL/min/1.73m2 Kidney Failure < 15 mL/min/1.73m2 *Relative to young adult level Estimated glomerular filtration rate is determined by the 2020 CKD-EPI equation recommended by the National Kidney Foundation (A Unifying Approach to GFR Estimation: Recommendations of the NKF-ASK Task Force on Reassessing the Inclusion of Race in Diagnosing Kidney Disease, JASN 2020). The CKD-EPI equation should not be used for patients with unstable renal function and has not been validated in children and those over 70. Current interpretive data was last reviewed 2021. Blood 06/03/2024 8:54 AM CDT 06/03/2024 9:25 AM CDT us Patricia Davidson MD PhD LAB BLOOD ORDERABLES Final Result [facility] [place] [address] * Differential, auto (06/03/2024 8:54 AM CDT) Neutrophil abs 2.8 1.5 - 6.5 K/cumm Imm gran abs 0.0 0.0 - 0.1 K/cumm [facility] Lymphocyte abs 1.3 0.8 - 3.3 K/cumm [facility] Monocyte abs 0.4 0.2 - 0.8 K/cumm [facility] Eosinophil abs 0.2 0.0 - 0.5 K/cumm [facility] Basophil abs 0.0 0.0 - 0.1 K/cumm [facility] Neutrophil pct 59.1 % [facility] Comment: Interpretive Data Percent cell count reference ranges are not reported, since discordance with absolute values may lead to misinterpretation of CBC data. Current Interpretive Data was last revised on 2017. Imm gran pct 0.4 % [facility] Comment: Interpretive Data Percent cell count reference ranges are not reported, since discordance with absolute values may lead to misinterpretation of CBC data. Current Interpretive Data was last revised on 2017. Lymphocyte pct 27.4 % [facility] Comment: Interpretive Data Percent cell count reference ranges are not reported, since discordance with absolute values may lead to misinterpretation of CBC data. Current Interpretive Data was last revised on 2017. Monocyte pct 9.1 % [facility] Comment: Interpretive Data Percent cell count reference ranges are not reported, since discordance with absolute values may lead to misinterpretation of CBC data. Current Interpretive Data was last revised on 2017. Eosinophil pct 3.8 % [facility] Comment: Interpretive Data Percent cell count reference ranges are not reported, since discordance with absolute values may lead to misinterpretation of CBC data. Current Interpretive Data was last revised on 2017. Basophil pct 0.2 % [facility] Comment: Interpretive Data Percent cell count reference ranges are not reported, since discordance with absolute values may lead to misinterpretation of CBC data. Current Interpretive Data was last revised on 2017. Blood 06/03/2024 8:54 AM CDT 06/03/2024 9:23 AM CDT Patricia Davidson MD PhD LAB BLOOD ORDERABLES Final Result Performing Organization Address [facility] de Phone Number [facility] [place] [address] * Tacrolimus level trough (06/03/2024 8:54 AM CDT) Pathologist [facility] Tacrolimus trough 4.9 ng/mL Comment: Interpretive Data Testing performed by liquid chromatography-tandem mass spectrometry. Therapeutic concentrations vary depending on type of transplanted organ and time elapsed since transplant. Typical trough concentrations range from 5-15 ng/mL. This test was developed and its performance characteristics determined by the [facility] consistent with CLIA requirements. This test has not been cleared or approved by the US Food and Drug administration. Current interpretive data last reviewed 2019. Blood 06/03/2024 8:54 AM CDT 06/03/2024 9:22 AM CDT Patricia Davidson MD PhD LAB BLOOD ORDERABLES Final Result Performing Organization Address [facility] de Phone Number [facility] [place] [address] * (ABNORMAL) CBC with auto differential (06/03/2024 8:54 AM CDT) [facility] WBC 4.7 3.8 - 9.9 K/cumm Hgb 11.6(L) 11.9 - 15.5 g/dL [facility] Hct 32.6(L) 35.6 - 45.5 % [facility] Plt 121(L) 150 - 400 K/cumm [facility] MPV 11.0 9.1 - 12.3 fL [facility] RBC 3.19(L) 3.90 - 5.20 M/cumm [facility] MCV 102.2(H) 81.3 - 96.4 fL [facility] MCH 36.4(H) 27.1 - 33.3 pg [facility] MCHC 35.6 32.3 - 35.7 g/dL [facility] RDW CV 13.5 11.1 - 14.9 % [facility] RDW SD 49.6(H) 35.7 - 48.1 fL [facility] NRBC abs 0.00 0.00 - 0.01 K/cumm [facility] Blood 06/03/2024 8:54 AM CDT 06/03/2024 9:23 AM CDT us Patricia Davidson MD PhD LAB BLOOD ORDERABLES Final Result [facility] [place] [place] [address] * CRP (acute phase) (06/03/2024 8:54 AM CDT) [facility] CRP 6.5 <=10.0 mg/L Blood 06/03/2024 8:54 AM CDT 06/03/2024 9:25 AM CDT us Pineda Barrios MD LAB BLOOD ORDE RABLES Final Result Performing Organization Address City/[facility]/ZIP Co de Phone Number [facility] [place] [address] * (ABNORMAL) Renal function panel (06/03/2024 8:54 AM CDT) Pathologist [facility] Sodium 143 135 - 145 mmol/L Potassium, pl 4.6 3.3 - 4.9 mmol/L [facility] Chloride 110 97 - 110 mmol/L [facility] CO2 23 22 - 32 mmol/L [facility] Anion gap 10 2 - 15 mmol/L [facility] BUN 21 6 - 25 mg/dL [facility] Creatinine 1.93(H) 0.60 - 1.10 mg/dL [facility] Glucose 125 70 - 199 mg/dL [facility] Comment: Interpretive Data Fasting glucose >/= 126 mg/dl is diagnostic for diabetes. Fasting is defined as no caloric intake for at least 8 hours. Fasting glucose between 100 mg/dl to 125 mg/dl is diagnostic of prediabetes. In a patient with classic symptoms of hyperglycemia or hyperglycemic crisis, a random glucose >/= 200 mg/dl is diagnostic for diabetes. In the absence of unequivocal hyperglycemia, results should be confirmed by repeat testing. The classification and Diagnosis of Diabetes Diabetes Care 2021; 46: S19-S40. Current interpretive data was last revised 2022. Calcium 9.1 8.5 - 10.3 mg/dL [facility] Phosphorus, pl 3.5 2.3 - 4.5 mg/dL [facility] Albumin 3.5 3.5 - 5.0 g/dL [facility] Blood 06/03/2024 8:54 AM CDT 06/03/2024 9:25 AM CDT us Patricia Davidson MD PhD LAB BLOOD ORDERABLES Final Result [facility] Department [place] [address] * (ABNORMAL) eGFR (06/03/2024 2:22 AM CDT) Pathologist [facility] eGFR 34(L) >=60 mL/min/1. 73 m2 Comment: Interpretive Data Reference Interval Normal >/= 90 mL/min/1.73m2 Mildly decreased* 60 - 89 mL/min/1.73m2 Mildly to moderately decreased 45 - 59 mL/min/1.73m2 Moderately to severely decreased 30 - 44 mL/min/1.73m2 Severely decreased 15 - 29 mL/min/1.73m2 Kidney Failure < 15 mL/min/1.73m2 *Relative to young adult level Estimated glomerular filtration rate is determined by the 2020 CKD-EPI equation recommended by the National Kidney Foundation (A Unifying Approach to GFR Estimation: Recommendations of the NKF-ASK Task Force on Reassessing the Inclusion of Race in Diagnosing Kidney Disease, JASN 202). The CKD-EPI equation should not be used for patients with unstable renal function and has not been validated in children and those over 70. Current interpretive data was last reviewed 2021. Blood 06/03/2024 2:22 AM CDT 06/03/2024 2:57 AM CDT Pineda Barrios MD LAB BLOOD [place] Final Result [facility] [place] [address] * Differential, auto (06/03/2024 2:22 AM CDT) Neutrophil abs 2.5 1.5 - 6.5 K/cumm Imm gran abs 0.0 0.0 - 0.1 K/cumm [facility] Lymphocyte abs 1.2 0.8 - 3.3 K/cumm [facility] Monocyte abs 0.4 0.2 - 0.8 K/cumm [facility] Eosinophil abs 0.1 0.0 - 0.5 K/cumm [facility] Basophil abs 0.0 0.0 - 0.1 K/cumm [facility] Neutrophil pct 58.3 % [facility] Comment: Interpretive Data Percent cell count reference ranges are not reported, since discordance with absolute values may lead to misinterpretation of CBC data. Current Interpretive Data was last revised on 2017. Imm gran pct 0.5 % [facility] Comment: Interpretive Data Percent cell count reference ranges are not reported, since discordance with absolute values may lead to misinterpretation of CBC data. Current Interpretive Data was last revised on 2017. Lymphocyte pct 28.7 % [facility] Comment: Interpretive Data Percent cell count reference ranges are not reported, since discordance with absolute values may lead to misinterpretation of CBC data. Current Interpretive Data was last revised on 2017. Monocyte pct 9.2 % [facility] Comment: Interpretive Data Percent cell count reference ranges are not reported, since discordance with absolute values may lead to misinterpretation of CBC data. Current Interpretive Data was last revised on 2017. Eosinophil pct 3.1 % [facility] Comment: Interpretive Data Percent cell count reference ranges are not reported, since discordance with absolute values may lead to misinterpretation of CBC data. Current Interpretive Data was last revised on 2017. Basophil pct 0.2 % [facility] Comment: Interpretive Data Percent cell count reference ranges are not reported, since discordance with absolute values may lead to misinterpretation of CBC data. Current Interpretive Data was last revised on 2017. Blood 06/03/2024 2:22 AM CDT 06/03/2024 2:57 AM CDT us Pineda Barrios MD LAB BLOOD [place] Final Result [facility] [place] [address] * (ABNORMAL) Iron profile w/ IBC (06/03/2024 2:22 AM CDT) Iron 104 35 - 145 mcg/dL TIBC 192(L) 250 - 400 mcg/dL [facility] Transferrin saturation 54(H) 20 - 50 % [facility] Blood 06/03/2024 2:22 AM CDT 06/03/2024 2:57 AM CDT us Shea Babcock MD LAB BLOOD ORDERABLE S Final Result [facility] [place] [address] * (ABNORMAL) CBC with auto differential (06/03/2024 2:22 AM CDT) Pathologist [facility] WBC 4.2 3.8 - 9.9 K/cumm Hgb 11.5(L) 11.9 - 15.5 g/dL [facility] Hct 32.9(L) 35.6 - 45.5 % [facility] Plt 120(L) 150 - 400 K/cumm [facility] MPV 11.2 9.1 - 12.3 fL [facility] RBC 3.24(L) 3.90 - 5.20 M/cumm [facility] MCV 101.5(H) 81.3 - 96.4 fL [facility] MCH 35.5(H) 27.1 - 33.3 pg [facility] MCHC 35.0 32.3 - 35.7 g/dL [facility] RDW CV 13.4 11.1 - 14.9 % [facility] RDW SD 49.9(H) 35.7 - 48.1 fL [facility] NRBC abs 0.00 0.00 - 0.01 K/cumm [facility] Blood 06/03/2024 2:22 AM CDT 06/03/2024 2:57 AM CDT Pineda Barrios MD LAB BLOOD [place] Final Result [facility] [place] [address] * Tacrolimus level random (06/03/2024 2:22 AM CDT) Pathologist [facility] Tacrolimus random 6.3 ng/mL Comment: Interpretive Data Testing performed by liquid chromatography-tandem mass spectrometry. Therapeutic concentrations vary depending on type of transplanted organ and time elapsed since transplant. Typical trough concentrations range from 5-15 ng/mL. This test was developed and its performance characteristics determined by the [facility] consistent with CLIA requirements. This test has not been cleared or approved by the US Food and Drug administration. Current interpretive data last reviewed 2019. Blood 06/03/2024 2:22 AM CDT 06/03/2024 2:57 AM CDT Pineda Barrios MD LAB BLOOD ORDE COURTNEY Final Result Performing Organization Address City/[facility]/ZIP Co de Phone Number [facility] [place] [address] * TSH (06/03/2024 2:22 AM CDT) Thyroid Stimulating Hormone 1.91 0.30 - 4.20 mcIUnit/mL Blood 06/03/2024 2:22 AM CDT 06/03/2024 2:57 AM CDT Shea Babcock MD LAB BLOOD ORDERABLE S Final Result Performing Organization Address [facility] [place] [address] * (ABNORMAL) Ferritin (06/03/2024 2:22 AM CDT) Ferritin 213(H) 13 - 150 ng/mL Blood 06/03/2024 2:22 AM CDT 06/03/2024 2:57 AM CDT Shea Babcock MD LAB BLOOD ORDERABLE S Final Result Performing Organization Address City/[facility] Co de Phone Number [facility] [place] [place] [address] * Vitamin B12 (06/03/2024 2:22 AM CDT) Vitamin B12 749 230 - 1,250 pg/mL Blood 06/03/2024 2:22 AM CDT 06/03/2024 2:57 AM CDT us Shea Babcock MD LAB BLOOD ORDERABLE S Final Result [facility] [place] [address] * (ABNORMAL) Renal function panel (06/03/2024 2:22 AM CDT) Pathologist [facility] Sodium 144 135 - 145 mmol/L Potassium, pl 5.0(H) 3.3 - 4.9 mmol/L [facility] Chloride 111(H) 97 - 110 mmol/L [facility] CO2 25 22 - 32 mmol/L [facility] Anion gap 8 2 - 15 mmol/L [facility] BUN 23 6 - 25 mg/dL [facility] Creatinine 1.86(H) 0.60 - 1.10 mg/dL [facility] Glucose 102 70 - 199 mg/dL [facility] Comment: Interpretive Data Fasting glucose >/= 126 mg/dl is diagnostic for diabetes. Fasting is defined as no caloric intake for at least 8 hours. Fasting glucose between 100 mg/dl to 125 mg/dl is diagnostic of prediabetes. In a patient with classic symptoms of hyperglycemia or hyperglycemic crisis, a random glucose >/= 200 mg/dl is diagnostic for diabetes. In the absence of unequivocal hyperglycemia, results should be confirmed by repeat testing. The classification and Diagnosis of Diabetes Diabetes Care 2021; 46: S19-S40. Current interpretive data was last revised 2022. Calcium 9.2 8.5 - 10.3 mg/dL [facility] Phosphorus, pl 3.1 2.3 - 4.5 mg/dL [facility] Albumin 3.8 3.5 - 5.0 g/dL [facility] Blood 06/03/2024 2:22 AM CDT 06/03/2024 2:57 AM CDT us Pineda Barrios MD LAB BLOOD [place] Final Result [facility] [place] [address] * (ABNORMAL) eGFR (06/02/2024 8:43 AM CDT) Pathologist [facility] eGFR 33(L) >=60 mL/min/1. 73 m2 Comment: Interpretive Data Reference Interval Normal >/= 90 mL/min/1.73m2 Mildly decreased* 60 - 89 mL/min/1.73m2 Mildly to moderately decreased 45 - 59 mL/min/1.73m2 Moderately to severely decreased 30 - 44 mL/min/1.73m2 Severely decreased 15 - 29 mL/min/1.73m2 Kidney Failure < 15 mL/min/1.73m2 *Relative to young adult level Estimated glomerular filtration rate is determined by the 2020 CKD-EPI equation recommended by the National Kidney Foundation (A Unifying Approach to GFR Estimation: Recommendations of the NKF-ASK Task Force on Reassessing the Inclusion of Race in Diagnosing Kidney Disease, JASN 2020). The CKD-EPI equation should not be used for patients with unstable renal function and has not been validated in children and those over 70. Current interpretive data was last reviewed 2021. Blood 06/02/2024 8:43 AM CDT 06/02/2024 9:14 AM CDT us Patricia Davidson MD PhD LAB BLOOD ORDERABLES Final Result Performing Organization Address [facility] de Phone Number [facility] [place] [address] * Differential, auto (06/02/2024 8:43 AM CDT) Pathologist [facility] Neutrophil abs 2.3 1.5 - 6.5 K/cumm Imm gran abs 0.0 0.0 - 0.1 K/cumm [facility] Lymphocyte abs 1.3 0.8 - 3.3 K/cumm [facility] Monocyte abs 0.4 0.2 - 0.8 K/cumm [facility] Eosinophil abs 0.1 0.0 - 0.5 K/cumm [facility] Basophil abs 0.0 0.0 - 0.1 K/cumm [facility] Neutrophil pct 55.6 % [facility] Comment: Interpretive Data Percent cell count reference ranges are not reported, since discordance with absolute values may lead to misinterpretation of CBC data. Current Interpretive Data was last revised on 2017. Imm gran pct 0.2 % [facility] Comment: Interpretive Data Percent cell count reference ranges are not reported, since discordance with absolute values may lead to misinterpretation of CBC data. Current Interpretive Data was last revised on 2017. Lymphocyte pct 30.7 % [facility] Comment: Interpretive Data Percent cell count reference ranges are not reported, since discordance with absolute values may lead to misinterpretation of CBC data. Current Interpretive Data was last revised on 2017. Monocyte pct 10.1 % [facility] Comment: Interpretive Data Percent cell count reference ranges are not reported, since discordance with absolute values may lead to misinterpretation of CBC data. Current Interpretive Data was last revised on 2017. Eosinophil pct 3.2 % [facility] Comment: Interpretive Data Percent cell count reference ranges are not reported, since discordance with absolute values may lead to misinterpretation of CBC data. Current Interpretive Data was last revised on 2017. Basophil pct 0.2 % [facility] Comment: Interpretive Data Percent cell count reference ranges are not reported, since discordance with absolute values may lead to misinterpretation of CBC data. Current Interpretive Data was last revised on 2017. Blood 06/02/2024 8:43 AM CDT 06/02/2024 9:14 AM CDT us Patricia Davidson MD PhD LAB BLOOD ORDERABLES Final Result ALEK RAIN [facility] [place] [address] * Tacrolimus level trough (06/02/2024 8:43 AM CDT) [facility] Tacrolimus trough 3.8 ng/mL Comment: Interpretive Data Testing performed by liquid chromatography-tandem mass spectrometry. Therapeutic concentrations vary depending on type of transplanted organ and time elapsed since transplant. Typical trough concentrations range from 5-15 ng/mL. This test was developed and its performance characteristics determined by the [facility] consistent with CLIA requirements. This test has not been cleared or approved by the US Food and Drug administration. Current interpretive data last reviewed 2019. Blood 06/02/2024 8:43 AM CDT 06/02/2024 9:14 AM CDT us Patricia Davidson MD PhD LAB BLOOD ORDERABLES Final Result [facility] [place] [address] * (ABNORMAL) CBC with auto differential (06/02/2024 8:43 AM CDT) WBC 4.1 3.8 - 9.9 K/cumm Hgb 10.8(L) 11.9 - 15.5 g/dL [facility] Hct 30.5(L) 35.6 - 45.5 % [facility] Plt 105(L) 150 - 400 K/cumm [facility] MPV 11.6 9.1 - 12.3 fL [facility] RBC 3.03(L) 3.90 - 5.20 M/cumm [facility] MCV 100.7(H) 81.3 - 96.4 fL [facility] MCH 35.6(H) 27.1 - 33.3 pg [facility] MCHC 35.4 32.3 - 35.7 g/dL [facility] RDW CV 13.3 11.1 - 14.9 % [facility] RDW SD 48.2(H) 35.7 - 48.1 fL [facility] NRBC abs 0.00 0.00 - 0.01 K/cumm [facility] Blood 06/02/2024 8:43 AM CDT 06/02/2024 9:14 AM CDT Patricia Davidson MD PhD LAB BLOOD ORDERABLES Final Result [facility] [place] [address] * (ABNORMAL) Renal function panel (06/02/2024 8:43 AM CDT) Sodium 143 135 - 145 mmol/L Potassium, pl 5.1(H) 3.3 - 4.9 mmol/L [facility] Comment:Hemolyzed; Potassium value may be falsely elevated by as much as 0.3-0.5 mmol/L. Suggest redraw and reanalysis. Chloride 111(H) 97 - 110 mmol/L [facility] CO2 26 22 - 32 mmol/L [facility] Anion gap 6 2 - 15 mmol/L [facility] BUN 22 6 - 25 mg/dL [facility] Creatinine 1.93(H) 0.60 - 1.10 mg/dL [facility] Glucose 108 70 - 199 mg/dL [facility] Comment: Interpretive Data Fasting glucose >/= 126 mg/dl is diagnostic for diabetes. Fasting is defined as no caloric intake for at least 8 hours. Fasting glucose between 100 mg/dl to 125 mg/dl is diagnostic of prediabetes. In a patient with classic symptoms of hyperglycemia or hyperglycemic crisis, a random glucose >/= 200 mg/dl is diagnostic for diabetes. In the absence of unequivocal hyperglycemia, results should be confirmed by repeat testing. The classification and Diagnosis of Diabetes Diabetes Care 2021; 46: S19-S40. Current interpretive data was last revised 2022. Calcium 8.8 8.5 - 10.3 mg/dL [facility] Phosphorus, pl 3.5 2.3 - 4.5 mg/dL [facility] Albumin 3.4(L) 3.5 - 5.0 g/dL [facility] Blood 06/02/2024 8:43 AM CDT 06/02/2024 9:14 AM CDT us Patricia Davidson MD PhD LAB BLOOD ORDERABLES Final Result Performing Organization Address City/[facility]/ZIP Co de Phone Number [facility] [place] [address] * Immunoglobulin profile (06/01/2024 9:10 PM CDT) [facility] Immunoglobulin G 882 700 - 1,600 mg/dL Immunoglobulin A 213 70 - 400 mg/dL [facility] Immunoglobulin M 92 40 - 230 mg/dL [facility] Blood 06/01/2024 9:10 PM CDT 06/01/2024 10:48 PM CDT Pineda Barrios MD LAB BLOOD KELLEE COURTNEY Final Result ALE[facility] [place] [address] * Differential, auto (06/01/2024 10:03 AM CDT) [facility] Neutrophil abs 3.5 1.5 - 6.5 K/cumm Imm gran abs 0.0 0.0 - 0.1 K/cumm [facility] Lymphocyte abs 1.3 0.8 - 3.3 K/cumm [facility] Monocyte abs 0.4 0.2 - 0.8 K/cumm [facility] Eosinophil abs 0.2 0.0 - 0.5 K/cumm [facility] Basophil abs 0.0 0.0 - 0.1 K/cumm [facility] Neutrophil pct 65.5 % [facility] Comment: Interpretive Data Percent cell count reference ranges are not reported, since discordance with absolute values may lead to misinterpretation of CBC data. Current Interpretive Data was last revised on 2017. Imm gran pct 0.2 % [facility] Comment: Interpretive Data Percent cell count reference ranges are not reported, since discordance with absolute values may lead to misinterpretation of CBC data. Current Interpretive Data was last revised on 2017. Lymphocyte pct 23.6 % [facility] Comment: Interpretive Data Percent cell count reference ranges are not reported, since discordance with absolute values may lead to misinterpretation of CBC data. Current Interpretive Data was last revised on 2017. Monocyte pct 7.7 % [facility] Comment: Interpretive Data Percent cell count reference ranges are not reported, since discordance with absolute values may lead to misinterpretation of CBC data. Current Interpretive Data was last revised on 2017. Eosinophil pct 2.8 % [facility] Comment: Interpretive Data Percent cell count reference ranges are not reported, since discordance with absolute values may lead to misinterpretation of CBC data. Current Interpretive Data was last revised on 2017. Basophil pct 0.2 % [facility] Comment: Interpretive Data Percent cell count reference ranges are not reported, since discordance with absolute values may lead to misinterpretation of CBC data. Current Interpretive Data was last revised on 2017. Blood 06/01/2024 10:0 3 AM CDT 06/01/2024 10:19 AM CDT us Patricia Davidson MD PhD LAB BLOOD ORDERABLES Final Result [facility] [place] [address] * (ABNORMAL) CBC with auto differential (06/01/2024 10:03 AM CDT) WBC 5.3 3.8 - 9.9 K/cumm Hgb 12.1 11.9 - 15.5 g/dL [facility] Hct 34.0(L) 35.6 - 45.5 % [facility] Plt 98(L) 150 - 400 K/cumm [facility] MPV 11.6 9.1 - 12.3 fL [facility] RBC 3.44(L) 3.90 - 5.20 M/cumm [facility] MCV 98.8(H) 81.3 - 96.4 fL [facility] MCH 35.2(H) 27.1 - 33.3 pg [facility] MCHC 35.6 32.3 - 35.7 g/dL [facility] RDW CV 12.8 11.1 - 14.9 % [facility] RDW SD 45.8 35.7 - 48.1 fL [facility] NRBC abs 0.00 0.00 - 0.01 K/cumm [facility] Blood 06/01/2024 10:0 3 AM CDT 06/01/2024 10:19 AM CDT Patricia Davidson MD PhD LAB BLOOD ORDERABLES Final Result Performing Organization Address [facility] de Phone Number [facility] [place] [address] * Tacrolimus level trough (06/01/2024 9:20 AM CDT) Tacrolimus trough 6.5 ng/mL Comment: Interpretive Data Testing performed by liquid chromatography-tandem mass spectrometry. Therapeutic concentrations vary depending on type of transplanted organ and time elapsed since transplant. Typical trough concentrations range from 5-15 ng/mL. This test was developed and its performance characteristics determined by the [facility] consistent with CLIA requirements. This test has not been cleared or approved by the US Food and Drug administration. Current interpretive data last reviewed 2019. Blood 06/01/2024 9:20 AM CDT 06/01/2024 9:53 AM CDT Patricia Davidson MD PhD LAB BLOOD ORDERABLES Final Result Performing Organization Address [facility] de Phone Number [facility] [place] [place] [address] * (ABNORMAL) eGFR (06/01/2024 6:17 AM CDT) eGFR 29(L) >=60 mL/min/1. 73 m2 Comment: Interpretive Data Reference Interval Normal >/= 90 mL/min/1.73m2 Mildly decreased* 60 - 89 mL/min/1.73m2 Mildly to moderately decreased 45 - 59 mL/min/1.73m2 Moderately to severely decreased 30 - 44 mL/min/1.73m2 Severely decreased 15 - 29 mL/min/1.73m2 Kidney Failure < 15 mL/min/1.73m2 *Relative to young adult level Estimated glomerular filtration rate is determined by the 2020 CKD-EPI equation recommended by the National Kidney Foundation (A Unifying Approach to GFR Estimation: Recommendations of the NKF-ASK Task Force on Reassessing the Inclusion of Race in Diagnosing Kidney Disease, JASN 2020). The CKD-EPI equation should not be used for patients with unstable renal function and has not been validated in children and those over 70. Current interpretive data was last reviewed 2021. Blood 06/01/2024 6:17 AM CDT 06/01/2024 6:52 AM CDT us Patricia Davidson MD PhD LAB BLOOD ORDERABLES Final Result [facility] [place] [address] * (ABNORMAL) Renal function panel (06/01/2024 6:17 AM CDT) Pathologist [facility] Sodium 135 135 - 145 mmol/L Potassium, pl 4.5 3.3 - 4.9 mmol/L [facility] Chloride 103 97 - 110 mmol/L [facility] CO2 22 22 - 32 mmol/L [facility] Anion gap 10 2 - 15 mmol/L [facility] BUN 24 6 - 25 mg/dL [facility] Creatinine 2.15(H) 0.60 - 1.10 mg/dL [facility] Glucose 120 70 - 199 mg/dL [facility] Comment: Interpretive Data Fasting glucose >/= 126 mg/dl is diagnostic for diabetes. Fasting is defined as no caloric intake for at least 8 hours. Fasting glucose between 100 mg/dl to 125 mg/dl is diagnostic of prediabetes. In a patient with classic symptoms of hyperglycemia or hyperglycemic crisis, a random glucose >/= 200 mg/dl is diagnostic for diabetes. In the absence of unequivocal hyperglycemia, results should be confirmed by repeat testing. The classification and Diagnosis of Diabetes Diabetes Care 2021; 46: S19-S40. Current interpretive data was last revised 2022. Calcium 8.7 8.5 - 10.3 mg/dL [facility] Phosphorus, pl 2.8 2.3 - 4.5 mg/dL [facility] Albumin 3.6 3.5 - 5.0 g/dL [facility] Blood 06/01/2024 6:17 AM CDT 06/01/2024 6:52 AM CDT us Patricia Davidson MD PhD LAB BLOOD ORDERABLES Final Result [facility] [place] [address] * TRANSTHORACIC ECHO (TTE) COMPLETE W DOPPLER/CF WO CONTRAST (05/31/2024 2:50 PM CDT) Anatomical Region Laterality Modality Ultrasound 05/31/2024 2:12 PM CDT Narrative 05/31/2024 3:36 PM CDT [facility] [place] [address] Transthoracic Echocardiographic Report Patient Name: MISHA BROWNE : 1980 (43y 7m) Gender: F Study Date: 05/31/2024 02:12:33 PM Ht(Inch): 63 Wt(Lb): 184.97 BSA: 1.93 Diving Judge: Elisabeth Em RDCS Location: [id number] Order Provider: PINEDA HINOJOSA Heart Rate: 61 BMI: 32.76 BP: 141 / 80 Ref Provider: PINEDA HINOJOSA PROCEDURES: Echocardiographic Report: Transthoracic complete echo with strain imaging, 2D, spectral and tissue Doppler, color flow Doppler, M-mode. INDICATIONS: CHF history, concern for cardiorenal cause of CHRISTY - CONCLUSIONS: 1. Normal left ventricular size based on volume index. Moderate concentric LV hypertrophy. Normal left ventricular systolic function. The Ejection Fraction (Johnson's) is measured at 70 %. Cannot determine diastolic function or LA pressure. 2. Normal right ventricular size. Normal right ventricular systolic function. 3. Moderately dilated left atrium. 4. Normal trileaflet aortic valve. Mild aortic valve regurgitation (NED=387 ms). The mean transaortic gradient is 4 mmHg. The aortic valve area by the continuity equation (using VTI) is 2.96 cm2. Aortic valve dimensionless index is 0.88. COMPARISONS: No previous study available for comparison. ATTESTATION: I have personally reviewed and interpreted this study without fellow or resident. DISCLAIMER: The study images and the final report will be retained in the patient chart by the Echo Laboratory for the legally required time period. This chart constitutes the legal record of any testing performed. FINDINGS: Left Ventricle: Normal left ventricular size based on volume index. Concentric LV hypertrophy. Normal left ventricular systolic function. The Ejection Fraction (Johnson's) is measured at 70 %. Cannot determine diastolic function or LA pressure. The LV global strain is: -18.6 %. Right Ventricle: Normal right ventricular size. Normal right ventricular systolic function. Left Atrium: Moderately dilated left atrium. Right Atrium: Mildly dilated right atrium. Mitral Valve: Normal mitral valve structure. No mitral regurgitation. Aortic Valve: Normal trileaflet aortic valve. Mild aortic valve regurgitation. The mean transaortic gradient is 4 mmHg. The aortic valve area by the continuity equation (using VTI) is 2.96 cm2. Aortic valve dimensionless index is 0.88. Tricuspid Valve: Normal tricuspid valve structure. No tricuspid regurgitation. Pulmonic Valve: Normal pulmonic valve structure. No pulmonic regurgitation. Pericardium: No pericardial effusion. Aorta: Mild aortic root dilation. Normal aortic root size when indexed. The ascending aorta is normal in size when indexed. IVC: IVC is normal in size. MEASUREMENTS: 2D/MM Value Range Doppler Value Range LVIDd 2D 4.32 cm [ 3.80 - 5.20 ] AV Peak Abdiel 1.3 m/s [ 1.0 - 1.7 ] LVIDs 2D 2.79 cm [ 2.20 - 3.50 ] AV Peak PG 6.76 mmHg IVSd 2D 1.54 cm [ 0.60 - 0.90 ] AV Mean PG 4 mmHg LVPWd 2D 1.39 cm [ 0.60 - 0.90 ] AV VTI 28.1 cm LV Thickness Ratio 1.1 LVOT Peak Abdiel 1.1 m/s [ 0.7 - 1.1 ] LV FS 2D 35.45 % [ 27.00 - 45.00 ] LVOT Peak PG 4.84 mmHg LV Mass 2D 253.16 g LVOT Mean PG 3 mmHg LV Mass Index 2D 131.17 g/m2 LVOT VTI 24.7 cm RWT 0.64 LVOT Diam 2.07 cm EDV Mod BP 75.06 ml [ 46.00 - 106.00 ] BIBIANA VTI 2.96 cm2 LV EDV Index 38.89 ml/m2 LVOT/AV VTI 0.88 - Dimensionless index (DVI) ESV Mod BP 22.47 ml [ 14.00 - 42.00 ] AI Peak Abdiel 4.7 m/s EF Mod BP 70 % [ 54 - 74 ] AI Peak PG 87 mmHg LV GLS -18.6 % [ -25.0 - -18.0 ] AI Decel Time 2202.62 sec LA Length 4C 6.78 cm AI Decel [place] 2.15 m/s2 LA Length 2C 6.66 cm AI PHT 638.76 msec LA Volume BP 83.77 ml MV E Peak Abdiel 0.9 m/s [ 0.6 - 1.3 ] LA Volume Index 43.40 ml/m2 [ 16.00 - 34.00 ] MV A Peak Abdiel 0.6 m/s [ 1.0 - 1.2 ] RV Base Dimen 2D 4.2 cm [ 2.5 - 4.2 ] MV E/A 1.4 ratio [ 0.8 - 1.5 ] TAPSE 1.95 cm [ 1.71 - 5.00 ] MV Decel Time 273.34 msec [ 104.00 - 258.00 ] RA Volume 65.78 ml Med E` Abdiel 7.2 cm/sec [ 8.0 - 25.0 ] RA Volume Index 34.08 ml/m2 Lat E` Abdiel 8.0 cm/sec [ 10.0 - 25.0 ] AoR Diam 2D 3.54 cm [ 2.70 - 3.70 ] Average E/E` 11.84 Ao Root Index 1.83 cm/m2 [ 1.00 - 2.00 ] RV S` 15.77 cm/sec Asc Ao Diam 2D 3.11 cm PV Peak Abdiel 0.8 m/s [ 0.4 - 0.8 ] Asc Ao Index 1.61 cm/m2 PV Peak PG 2.56 mmHg PI ED Abdiel 90.44 m/sec Electronically Signed By: Stalin Krishna M.D. 05/31/2024 3:36:31 PM CDT Procedure Note Stalin Krishna MD - 05/31/2024 [facility] Card[place] [address] Transthoracic Echocardiographic Report Patient Name: MISHA BROWNE : 1980 (43y 7m) Gender: F Study Date: 05/31/2024 02:12:33 PM Ht(Inch): 63 Wt(Lb): 184.97 BSA: 1.93 Diving Judge: Elisabeth Em RDCS Location: [place] [address] Order Provider:PINEDA HINOJOSA Heart Rate: 61 BMI: 32.76 BP: 141 / 80 Ref Provider: PINEDA TREVIÑO PROCEDURES: Echocardiographic Report: Transthoracic complete echo with strain imaging,2D, spectral and tissue Doppler, color flow Doppler, M-mode. INDICATIONS: CHF history, concern for cardiorenal cause of CHRISTY - CONCLUSIONS: 1. Normal left ventricular size based on volume index. Moderate concentricLV hypertrophy. Normal left ventricular systolic function. The EjectionFraction (Johnson's) is measured at 70 %. Cannot determine diastolic function or LA pressure. 2. Normal right ventricular size. Normal right ventricular systolicfunction. 3. Moderately dilated left atrium. 4. Normal trileaflet aortic valve. Mild aortic valve regurgitation(OVF=990 ms). The mean transaortic gradient is 4 mmHg. The aortic valve area by the continuityequation (using VTI) is 2.96 cm2. Aortic valve dimensionless index is 0.88. COMPARISONS: No previous study available for comparison. ATTESTATION: I have personally reviewed and interpreted this study without fellow orresident. DISCLAIMER: The study images and the final report will be retained in the patientchart by the Echo Laboratory for the legally required time period. This chart constitutesthe legal record of any testing performed. FINDINGS: Left Ventricle: Normal left ventricular size based on volume index.Concentric LV hypertrophy. Normal left ventricular systolic function. The EjectionFraction (Johnson's) is measured at 70 %. Cannot determine diastolic function or LA pressure.The LV global strain is: -18.6 %. Right Ventricle: Normal right ventricular size. Normal right ventricularsystolic function. Left Atrium: Moderately dilated left atrium. Right Atrium: Mildly dilated right atrium. Mitral Valve: Normal mitral valve structure. No mitral regurgitation. Aortic Valve: Normal trileaflet aortic valve. Mild aortic valveregurgitation. The mean transaortic gradient is 4 mmHg. The aortic valve area by the continuityequation (using VTI) is 2.96 cm2. Aortic valve dimensionless index is 0.88. Tricuspid Valve: Normal tricuspid valve structure. No tricuspidregurgitation. Pulmonic Valve: Normal pulmonic valve structure. No pulmonicregurgitation. Pericardium: No pericardial effusion. Aorta: Mild aortic root dilation. Normal aortic root size when indexed.The ascending aorta is normal in size when indexed. IVC: IVC is normal in size. MEASUREMENTS: 2D/MM Value Range DopplerValue Range LVIDd 2D 4.32 cm [ 3.80 - 5.20 ] AV Peak Vel1.3 m/s [ 1.0 - 1.7 ] LVIDs 2D 2.79 cm [ 2.20 - 3.50 ] AV Peak PG6.76 mmHg IVSd 2D 1.54 cm [ 0.60 - 0.90 ] AV Mean PG4 mmHg LVPWd 2D 1.39 cm [ 0.60 - 0.90 ] AV VTI28.1 cm LV Thickness Ratio 1.1 LVOT Peak Vel1.1 m/s [ 0.7 - 1.1 ] LV FS 2D 35.45 % [ 27.00 - 45.00 ] LVOT Peak PG4.84 mmHg LV Mass 2D 253.16 g LVOT Mean PG3 mmHg LV Mass Index 2D 131.17 g/m2 LVOT VTI24.7 cm RWT 0.64 LVOT Diam2.07 cm EDV Mod BP 75.06 ml [ 46.00 - 106.00 ] BIBIANA VTI2.96 cm2 LV EDV Index 38.89 ml/m2 LVOT/AV VTI0.88 - Dimensionless index (DVI) ESV Mod BP 22.47 ml [ 14.00 - 42.00 ] AI Peak Vel4.7 m/s EF Mod BP 70 % [ 54 - 74 ] AI Peak PG87 mmHg LV GLS -18.6 % [ -25.0 - -18.0 ] AI Decel Xzmt2302.62 sec LA Length 4C 6.78 cm AI Decel Slope2.15 m/s2 LA Length 2C 6.66 cm AI HGJ206.76 msec LA Volume BP 83.77 ml MV E Peak Vel0.9 m/s [ 0.6 - 1.3 ] LA Volume Index 43.40 ml/m2 [ 16.00 - 34.00 ] MV A Peak Vel0.6 m/s [ 1.0 - 1.2 ] RV Base Dimen 2D 4.2 cm [ 2.5 - 4.2 ] MV E/A1.4 ratio [ 0.8 - 1.5 ] TAPSE 1.95 cm [ 1.71 - 5.00 ] MV Decel Luxt638.34 msec [ 104.00 - 258.00 ] RA Volume 65.78 ml Med E` Vel7.2 cm/sec [ 8.0 - 25.0 ] RA Volume Index 34.08 ml/m2 Lat E` Vel8.0 cm/sec [ 10.0 - 25.0 ] AoR Diam 2D 3.54 cm [ 2.70 - 3.70 ] Average E/E`11.84 Ao Root Index 1.83 cm/m2 [ 1.00 - 2.00 ] RV S`15.77 cm/sec Asc Ao Diam 2D 3.11 cm PV Peak Vel0.8 m/s [ 0.4 - 0.8 ] Asc Ao Index 1.61 cm/m2 PV Peak PG2.56 mmHg PI ED Abdiel 90.44 m/sec Electronically Signed By: Stalin Krishna M.D. 05/31/2024 3:36:31 PM CDT Pineda Barrios MD CV ECHO PROCED URES Final Result * (ABNORMAL) eGFR (05/31/2024 4:55 AM CDT) eGFR 20(L) >=60 mL/min/1. 73 m2 Comment: Interpretive Data Reference Interval Normal >/= 90 mL/min/1.73m2 Mildly decreased* 60 - 89 mL/min/1.73m2 Mildly to moderately decreased 45 - 59 mL/min/1.73m2 Moderately to severely decreased 30 - 44 mL/min/1.73m2 Severely decreased 15 - 29 mL/min/1.73m2 Kidney Failure < 15 mL/min/1.73m2 *Relative to young adult level Estimated glomerular filtration rate is determined by the 2020 CKD-EPI equation recommended by the National Kidney Foundation (A Unifying Approach to GFR Estimation: Recommendations of the NKF-ASK Task Force on Reassessing the Inclusion of Race in Diagnosing Kidney Disease, JASN 202). The CKD-EPI equation should not be used for patients with unstable renal function and has not been validated in children and those over 70. Current interpretive data was last reviewed 2021. Blood 05/31/2024 4:55 AM CDT 05/31/2024 5:48 AM CDT us Patricia Davidson MD PhD LAB BLOOD ORDERABLES Final Result [facility] [place] [address] * Differential, auto (05/31/2024 4:55 AM CDT) Neutrophil abs 4.9 1.5 - 6.5 K/cumm Imm gran abs 0.0 0.0 - 0.1 K/cumm [facility] Lymphocyte abs 1.4 0.8 - 3.3 K/cumm [facility] Monocyte abs 0.6 0.2 - 0.8 K/cumm [facility] Eosinophil abs 0.1 0.0 - 0.5 K/cumm [facility] Basophil abs 0.0 0.0 - 0.1 K/cumm [facility] Neutrophil pct 69.8 % [facility] Comment: Interpretive Data Percent cell count reference ranges are not reported, since discordance with absolute values may lead to misinterpretation of CBC data. Current Interpretive Data was last revised on 2017. Imm gran pct 0.6 % [facility] Comment: Interpretive Data Percent cell count reference ranges are not reported, since discordance with absolute values may lead to misinterpretation of CBC data. Current Interpretive Data was last revised on 2017. Lymphocyte pct 19.7 % [facility] Comment: Interpretive Data Percent cell count reference ranges are not reported, since discordance with absolute values may lead to misinterpretation of CBC data. Current Interpretive Data was last revised on 2017. Monocyte pct 8.0 % [facility] Comment: Interpretive Data Percent cell count reference ranges are not reported, since discordance with absolute values may lead to misinterpretation of CBC data. Current Interpretive Data was last revised on 2017. Eosinophil pct 1.9 % [facility] Comment: Interpretive Data Percent cell count reference ranges are not reported, since discordance with absolute values may lead to misinterpretation of CBC data. Current Interpretive Data was last revised on 2017. Basophil pct 0.0 % [facility] Comment: Interpretive Data Percent cell count reference ranges are not reported, since discordance with absolute values may lead to misinterpretation of CBC data. Current Interpretive Data was last revised on 2017. Blood 05/31/2024 4:55 AM CDT 05/31/2024 5:49 AM CDT Patricia Davidson MD PhD LAB BLOOD ORDERABLES Final Result Performing Organization Address [facility] de Phone Number [facility] [place] [address] * Tacrolimus level trough (05/31/2024 4:55 AM CDT) [facility] Tacrolimus trough 9.2 ng/mL Comment: Interpretive Data Testing performed by liquid chromatography-tandem mass spectrometry. Therapeutic concentrations vary depending on type of transplanted organ and time elapsed since transplant. Typical trough concentrations range from 5-15 ng/mL. This test was developed and its performance characteristics determined by the [facility] consistent with CLIA requirements. This test has not been cleared or approved by the US Food and Drug administration. Current interpretive data last reviewed 2019. Blood 05/31/2024 4:55 AM CDT 05/31/2024 5:49 AM CDT Patricia Davidson MD PhD LAB BLOOD ORDERABLES Final Result Performing Organization Address [facility] de Phone Number [facility] [place] [address] * (ABNORMAL) CBC with auto differential (05/31/2024 4:55 AM CDT) [facility] WBC 7.0 3.8 - 9.9 K/cumm Hgb 11.2(L) 11.9 - 15.5 g/dL [facility] Hct 31.4(L) 35.6 - 45.5 % [facility] Plt 102(L) 150 - 400 K/cumm [facility] MPV 10.9 9.1 - 12.3 fL [facility] RBC 3.15(L) 3.90 - 5.20 M/cumm [facility] MCV 99.7(H) 81.3 - 96.4 fL [facility] MCH 35.6(H) 27.1 - 33.3 pg [facility] MCHC 35.7 32.3 - 35.7 g/dL [facility] RDW CV 12.9 11.1 - 14.9 % [facility] RDW SD 46.0 35.7 - 48.1 fL [facility] NRBC abs 0.00 0.00 - 0.01 K/cumm [facility] Blood 05/31/2024 4:55 AM CDT 05/31/2024 5:49 AM CDT us Patricia Davidson MD PhD LAB BLOOD ORDERABLES Final Result [facility] [place] [address] * (ABNORMAL) Renal function panel (05/31/2024 4:55 AM CDT) Sodium 136 135 - 145 mmol/L Potassium, pl 4.6 3.3 - 4.9 mmol/L [facility] Chloride 105 97 - 110 mmol/L [facility] CO2 23 22 - 32 mmol/L [facility] Anion gap 8 2 - 15 mmol/L [facility] BUN 30(H) 6 - 25 mg/dL [facility] Creatinine 2.90(H) 0.60 - 1.10 mg/dL [facility] Glucose 119 70 - 199 mg/dL [facility] Comment: Interpretive Data Fasting glucose >/= 126 mg/dl is diagnostic for diabetes. Fasting is defined as no caloric intake for at least 8 hours. Fasting glucose between 100 mg/dl to 125 mg/dl is diagnostic of prediabetes. In a patient with classic symptoms of hyperglycemia or hyperglycemic crisis, a random glucose >/= 200 mg/dl is diagnostic for diabetes. In the absence of unequivocal hyperglycemia, results should be confirmed by repeat testing. The classification and Diagnosis of Diabetes Diabetes Care 202; 46: S19-S40. Current interpretive data was last revised 2022. Calcium 8.4(L) 8.5 - 10.3 mg/dL [facility] Phosphorus, pl 3.2 2.3 - 4.5 mg/dL [facility] Albumin 3.6 3.5 - 5.0 g/dL [facility] Blood 05/31/2024 4:55 AM CDT 05/31/2024 5:48 AM CDT Result [facility] Patricia Davidson MD PhD LAB BLOOD ORDERABLES Final Result Performing Organization Address [facility] de Phone Number [facility] [place] [address] * Sodium, urine, random (05/30/2024 5:23 PM CDT) Sodium, ur <20 mmol/L Comment: Interpretive Data No reference range established. Current interpretive data was last revised 2018. Urine 05/30/2024 5:23 PM CDT 05/30/2024 5:59 PM CDT Pineda Barrios MD LAB URINE ORDE RABLES Final Result Performing Organization Address [facility] de Phone Number [facility] [place] [address] * Creatinine, urine, random (05/30/2024 5:23 PM CDT) Creatinine Ur 121.1 mg/dL Comment: Interpretive Data No reference range established. Current interpretive data was last revised 2018. Urine 05/30/2024 5:23 PM CDT 05/30/2024 5:59 PM CDT Result [facility] Pineda Barrios MD LAB URINE ORDE RABLES Final Result Performing Organization Address [facility] [place] [address] * BK virus PCR quantitative Blood (05/30/2024 4:44 AM CDT) [facility] BKV DNA result, pl Not Detected [facility] Comment: The quantifiable range of this assay is 21.5 IU/mL to 100,000,000 IU/mL (1.33 log IU/mL to 8.00 log IU/mL). Testing was performed by the [employer] BKV Quantatitive Test version 2.0 ([employer] Testing performed at [facility] Current Interpretive Data was last revised on 2021. Blood 05/30/2024 4:44 AM CDT 05/30/2024 5:55 AM CDT Patricia Davidson MD PhD LAB MICROBIOLOGY - GENERAL ORDERABLES Final Result Performing Organization Address City/[facility]/[place] [address] [facility] * Collection Task for HLA Antibody Screen (05/30/2024 4:44 AM CDT) [facility] HLA Antibody Screen By Single Antigen Received Blood 05/30/2024 4:44 AM CDT 05/30/2024 9:01 AM CDT Patricia Davidson MD PhD LAB [place] [address] * Cytomegalovirus (CMV) DNA PCR, quantitative Blood (05/30/2024 4:44 AM CDT) [facility] CMV DNA Not Detected [facility] Comment: Interpretive Data: The quantifiable range of this assay is 34 IUnits/mL to 10,000,000 IUnits/mL (1.53 log IUnits/mL to 7.0 log IUnits/mL). Testing was performed by the [employer] 6800 CMV Test ([employer] Testing performed at [facility]. Current interpretive data was last revised on 2020. Blood 05/30/2024 4:44 AM CDT 05/30/2024 5:55 AM CDT Patricia Davidson MD PhD LAB MICROBIOLOGY - GENERAL ORDERABLES Final Result Performing Organization Address [facility] Co de Phone Number [facility] [place] [employer] [place] [address] [facility] * (ABNORMAL) eGFR (05/30/2024 4:44 AM CDT) Pathologist [facility] eGFR 21(L) >=60 mL/min/1. 73 m2 Comment: Interpretive Data Reference Interval Normal >/= 90 mL/min/1.73m2 Mildly decreased* 60 - 89 mL/min/1.73m2 Mildly to moderately decreased 45 - 59 mL/min/1.73m2 Moderately to severely decreased 30 - 44 mL/min/1.73m2 Severely decreased 15 - 29 mL/min/1.73m2 Kidney Failure < 15 mL/min/1.73m2 *Relative to young adult level Estimated glomerular filtration rate is determined by the 2020 CKD-EPI equation recommended by the National Kidney Foundation (A Unifying Approach to GFR Estimation: Recommendations of the NKF-ASK Task Force on Reassessing the Inclusion of Race in Diagnosing Kidney Disease, JASN 2020). The CKD-EPI equation should not be used for patients with unstable renal function and has not been validated in children and those over 70. Current interpretive data was last reviewed 2021. Blood 05/30/2024 4:44 AM CDT 05/30/2024 5:31 AM CDT Patricia Davidson MD PhD LAB BLOOD ORDERABLES Final Result Performing Organization Address City/[facility]/ZIP Co de Phone Number [facility] Department [place] [place] [address] * Differential, auto (05/30/2024 4:44 AM CDT) Neutrophil abs 5.0 1.5 - 6.5 K/cumm Imm gran abs 0.0 0.0 - 0.1 K/cumm [facility] Lymphocyte abs 1.7 0.8 - 3.3 K/cumm [facility] Monocyte abs 0.5 0.2 - 0.8 K/cumm [facility] Eosinophil abs 0.1 0.0 - 0.5 K/cumm [facility] Basophil abs 0.0 0.0 - 0.1 K/cumm [facility] Neutrophil pct 68.2 % [facility] Comment: Interpretive Data Percent cell count reference ranges are not reported, since discordance with absolute values may lead to misinterpretation of CBC data. Current Interpretive Data was last revised on 2017. Imm gran pct 0.5 % [facility] Comment: Interpretive Data Percent cell count reference ranges are not reported, since discordance with absolute values may lead to misinterpretation of CBC data. Current Interpretive Data was last revised on 2017. Lymphocyte pct 22.6 % [facility] Comment: Interpretive Data Percent cell count reference ranges are not reported, since discordance with absolute values may lead to misinterpretation of CBC data. Current Interpretive Data was last revised on 2017. Monocyte pct 6.8 % [facility] Comment: Interpretive Data Percent cell count reference ranges are not reported, since discordance with absolute values may lead to misinterpretation of CBC data. Current Interpretive Data was last revised on 2017. Eosinophil pct 1.8 % [facility] Comment: Interpretive Data Percent cell count reference ranges are not reported, since discordance with absolute values may lead to misinterpretation of CBC data. Current Interpretive Data was last revised on 2017. Basophil pct 0.1 % [facility] Comment: Interpretive Data Percent cell count reference ranges are not reported, since discordance with absolute values may lead to misinterpretation of CBC data. Current Interpretive Data was last revised on 2017. Blood 05/30/2024 4:44 AM CDT 05/30/2024 5:30 AM CDT Patricia Davidson MD PhD LAB BLOOD ORDERABLES Final Result Performing Organization Address [facility] Co de Phone Number [facility] [place] [address] * Tacrolimus level trough (05/30/2024 4:44 AM CDT) Pathologist [facility] Tacrolimus trough 16.5 ng/mL Comment: Interpretive Data Testing performed by liquid chromatography-tandem mass spectrometry. Therapeutic concentrations vary depending on type of transplanted organ and time elapsed since transplant. Typical trough concentrations range from 5-15 ng/mL. This test was developed and its performance characteristics determined by the [facility] consistent with CLIA requirements. This test has not been cleared or approved by the [place] Food and Drug administration. Current interpretive data last reviewed 2019. Blood 05/30/2024 4:44 AM CDT 05/30/2024 5:30 AM CDT Patricia Davidson MD PhD LAB BLOOD ORDERABLES Final Result Performing Organization Address City/[facility] Co de Phone Number [facility] [place] [place] [address] * (ABNORMAL) CBC with auto differential (05/30/2024 4:44 AM CDT) [facility] WBC 7.4 3.8 - 9.9 K/cumm Hgb 12.0 11.9 - 15.5 g/dL [facility] Hct 33.9(L) 35.6 - 45.5 % [facility] Plt 130(L) 150 - 400 K/cumm [facility] MPV 10.8 9.1 - 12.3 fL [facility] RBC 3.40(L) 3.90 - 5.20 M/cumm [facility] MCV 99.7(H) 81.3 - 96.4 fL [facility] MCH 35.3(H) 27.1 - 33.3 pg [facility] MCHC 35.4 32.3 - 35.7 g/dL [facility] RDW CV 13.0 11.1 - 14.9 % [facility] RDW SD 47.4 35.7 - 48.1 fL [facility] NRBC abs 0.00 0.00 - 0.01 K/cumm [facility] Blood 05/30/2024 4:44 AM CDT 05/30/2024 5:30 AM CDT us Patricia Davidson MD PhD LAB BLOOD ORDERABLES Final Result [facility] [place] [address] * (ABNORMAL) Renal function panel (05/30/2024 4:44 AM CDT) Pathologist [facility] Sodium 142 135 - 145 mmol/L Potassium, pl 4.2 3.3 - 4.9 mmol/L [facility] Chloride 108 97 - 110 mmol/L [facility] CO2 25 22 - 32 mmol/L [facility] Anion gap 9 2 - 15 mmol/L [facility] BUN 23 6 - 25 mg/dL [facility] Creatinine 2.76(H) 0.60 - 1.10 mg/dL [facility] Glucose 123 70 - 199 mg/dL [facility] Comment: Interpretive Data Fasting glucose >/= 126 mg/dl is diagnostic for diabetes. Fasting is defined as no caloric intake for at least 8 hours. Fasting glucose between 100 mg/dl to 125 mg/dl is diagnostic of prediabetes. In a patient with classic symptoms of hyperglycemia or hyperglycemic crisis, a random glucose >/= 200 mg/dl is diagnostic for diabetes. In the absence of unequivocal hyperglycemia, results should be confirmed by repeat testing. The classification and Diagnosis of Diabetes Diabetes Care 202; 46: S19-S40. Current interpretive data was last revised 2022. Calcium 9.1 8.5 - 10.3 mg/dL [facility] Phosphorus, pl 3.6 2.3 - 4.5 mg/dL [facility] Albumin 3.8 3.5 - 5.0 g/dL [facility] Blood 05/30/2024 4:44 AM CDT 05/30/2024 5:31 AM CDT Patricia Davidson MD PhD LAB BLOOD ORDERABLES Final Result [facility] [place] [address] * HLA Donor Specific Antibody Report (05/30/2024 4:42 AM CDT) Patricia Davidson MD PhD LAB BLOOD ORDERABLES Final Result * HLA Donor Specific Antibody Report (05/30/2024 4:42 AM CDT) Result [facility] Patricia Davidson MD PhD LAB BLOOD ORDERABLES Final Result * HLA Antibody Screen - DSA (Class I and Class II) (05/30/2024 4:42 AM CDT) Blood 05/30/2024 4:42 AM CDT 05/31/2024 11:29 AM CDT Narrative [facility] - 05/31/2024 11:29 AM CDT Result [facility] Patricia Davidson MD PhD LAB BLOOD ORDERABLES Final Result Performing Organization Address [facility] Co de Phone Number [facility] * ECG 12 lead (05/30/2024 1:10 AM CDT) Ventricular Rate EKG/Min 75 BPM [facility] Atrial Rate 75 BPM [facility] AK-Interval (MSEC) 160 ms [facility] QRS-Interval (MSEC) 82 ms [facility] QT-Interval (MSEC) 456 ms [facility] QTc 509 ms [facility] P [place] 31 degrees [facility] R [place] -9 degrees [facility] T [place] 44 degrees [facility] Diagnosis Normal sinus rhythm Poor r wave progression associated with abnormal lead placement, obesity, pulmonary disease, anterior infarction. Prolonged QT Abnormal ECG When compared with ECG of 20-APR-2020 11:02, QRS voltage has increased Confirmed by BRODIE LEIGH M.D ([id number]) on 05/30/2024 12:29:55 PM [facility] [employer] 05/30/2024 1:10 AM CDT 05/30/2024 12:29 PM CDT Patricia Davidson MD PhD ECG ORDERABLES Final Resul t [facility] [employer] [facility] * US Renal Transplant W Dopplers (05/29/2024 5:08 PM CDT) Anatomical Region Laterality Modality Kidney N/A Ultrasound 05/29/2024 5:19 PM CDT Impressions 05/30/2024 6:59 AM CDT 1. Normal resistive indices and no Doppler evidence of transplant renal artery stenosis. 2. Normal transplant morphology. No hydronephrosis. Dictated by: Louie Winston MD The radiology attending physician has personally reviewed this study, and had reviewed and/or edited this written report and agrees with it. Electronically signed by: Ziyad Purdy M.D. Narrative 05/30/2024 6:59 AM CDT EXAMINATION: RENAL TRANSPLANT ULTRASOUND WITH DOPPLER HISTORY: Decreased urine output. 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 FINDINGS: The right iliac fossa transplant kidney measures 9.2 cm in length. Echogenicity is normal. There is no hydronephrosis. There are no renal calculi visualized. No perinephric fluid collection is seen. Bladder: The urinary bladder is mildly distended. Color Doppler and spectral analysis were used to evaluate the renal vasculature. Resistive indices in the transplant segmental arteries range from 0.54 to 0.63, and are normal. No focal flow abnormalities were seen in the transplant renal artery on color Doppler. The peak systolic velocities at the origin, mid aspect, and hilum of the transplant renal artery are 233 cm/sec, 131 cm/sec, and 46 cm/sec, respectively. The proximal external iliac artery peak systolic velocity is 197 cm/sec. The visualized portions of the transplant renal vein are patent. There is no thrombosis. Procedure Note Ziyad Purdy MD - 05/30/2024 EXAMINATION: RENAL TRANSPLANT ULTRASOUND WITH DOPPLER HISTORY: Decreased urine output. 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 FINDINGS: The right iliac fossa transplant kidney measures 9.2 cm in length. Echogenicity is normal. There is no hydronephrosis. There are no renal calculi visualized. No perinephric fluid collection is seen. Bladder: The urinary bladder is mildly distended. Color Doppler and spectral analysis were used to evaluate the renal vasculature. Resistive indices in the transplant segmental arteries range from 0.54 to 0.63, and are normal. No focal flow abnormalities were seen in the transplant renal artery on color Doppler. The peak systolic velocities at the origin, mid aspect, and hilum of the transplant renal artery are 233 cm/sec, 131 cm/sec, and 46 cm/sec, respectively. The proximal external iliac artery peak systolic velocity is 197 cm/sec. The visualized portions of the transplant renal vein are patent. There is no thrombosis. IMPRESSION: 1. Normal resistive indices and no Doppler evidence of transplant renal artery stenosis. 2. Normal transplant morphology. No hydronephrosis. Dictated by: Louie Winston MD The radiology attending physician has personally reviewed this study, and had reviewed and/or edited this written report and agrees with it. Electronically signed by: Ziyad Purdy M.D. Jessee Mandel MD [facility] US PROCEDURES Aniya l Result * Influenza A/B, RSV, and COVID-19 PCR Nasopharyngeal (05/29/2024 4:10 PM CDT) Pathologist [facility] COVID-19 RNA Negative Negative [facility] Influenza A RNA Negative Negative [facility] Influenza B RNA Negative Negative [facility] RSV RNA Negative Negative [facility] Comment: Interpretive data: Testing performed by [facility] ([phone]). This test is performed using the [employer] Xpert Xpress CoV-2/Flu/RSV plus assay. This is a multiplex, real-time reverse transcriptase PCR assay intended for the qualitative detection of nucleic acid from SARS-CoV-2, influenza A, influenza B, and respiratory syncytial virus. This assay has been cleared by the [place] Food and Drug administration. The performance characteristics have been verified by the [facility]. Results must be considered in the clinical context, and a negative result does not rule out infection. Interpretive Data last revised 2023 Nasopharyngeal 05/29/2024 4: 10 PM CDT 05/29/2024 5:03 PM CDT Narrative [facility] - 05/29/2024 5:51 PM CDT Is the Patient experiencing symptoms consistent with COVID?->Unknown Mona Barrios MD LAB MICROBIOLOGY - GEN ERAL ORDERABLES Final Result [facility] [place] [address] [facility] * Respiratory pathogen panel Nasopharyngeal (05/29/2024 4:10 PM CDT) Pathologist [facility] Influenza A RNA Not Detected Not Detected Influenza B RNA Not Detected Not Detected [facility] RSV RNA Not Detected Not Detected [facility] COVID-19 RNA Not Detected Not Detected [facility] Coronavirus 229E RNA Not Detected Not Detected [facility] Coronavirus HKU1 RNA Not Detected Not Detected [facility] Coronavirus NL63 RNA Not Detected Not Detected [facility] Coronavirus OC43 RNA Not Detected Not Detected [facility] Adenovirus DNA Not Detected Not Detected [facility] Metapneumovirus RNA Not Detected Not Detected [facility] Rhinovirus/Enterov irus RNA Not Detected Not Detected [facility] Parainfluenza 1 RNA Not Detected Not Detected [facility] Parainfluenza 2 RNA Not Detected Not Detected [facility] Parainfluenza 3 RNA Not Detected Not Detected [facility] Parainfluenza 4 RNA Not Detected Not Detected [facility] B. pertussis DNA Not Detected Not Detected [facility] [facility] B. parapertussis DNA Not Detected Not Detected [facility] C. pneumoniae DNA Not Detected Not Detected [facility] M. pneumoniae DNA Not Detected Not Detected [facility] Nasopharyngeal 05/29/2024 4: 10 PM CDT 05/30/2024 6:07 AM CDT Narrative [facility] - 05/30/2024 7:05 AM CDT Interpretive Data The [employer] FilmArray Respiratory Panel (RP2.1) assay is a multiplexed real-time PCR based nucleic acid test capable of simultaneous qualitative detection and identification of multiple respiratory viral and bacterial nucleic acids, including SARS Coronavirus 2 (the causative agent of COVID-19). The following bacteria, viruses and virus subtypes can be identified using the FilmArray RP2.1 assay: Bordetella pertussis, Bordetella parapertussis, Chlamydia pneumoniae, Mycoplasma pneumoniae, Adenovirus, SARS Coronavirus 2, seasonal coronaviruses (Coronavirus HKU1, Coronavirus NL63, Coronavirus 229E, and Coronavirus OC43), Influenza A, Influenza A subtype H1, Influenza A subtype H3, Influenza A subtype 2009 H1, Influenza B, Metapneumovirus, Parainfluenza 1, Parainfluenza 2, Parainfluenza 3, Parainfluenza 4, RSV, Rhinovirus/Enterovirus. Due to the genetic similarity between human Rhinovirus and Enterovirus, the FilmArray RP2.1 assay cannot reliably differentiate them. Coronavirus OC43 may cross-react with some isolates of Coronavirus HKU1. A dual positive result may be due to cross-reactivity or may indicate a co- infection. The detection and identification of specific viral and bacterial nucleic acids from individuals exhibiting signs and symptoms of a respiratory infection aids in the diagnosis of respiratory infection if used in conjunction with other clinical and epidemiological information. The results of this test should not be used as the sole basis for diagnosis, treatment, or other management decisions. Negative results in the setting of a respiratory illness may be due to infection with pathogens that are not detected by this test. Positive results do not rule out infection/co-infection with other organisms. The agent(s) detected by the FilmArray RP2.1 may not be the definite cause of disease. Additional testing (lab, imaging, etc.) may be necessary when evaluating a patient with possible respiratory tract infection. The FilmArray RP2.1 assay has FDA clearance for testing of FINANCIAL COMPLIANCE EXAMINER swabs. The performance of additional specimen types has been assessed by the performing laboratory. The performance characteristics of this assay have been determined by [facility] Infectious Disease [facility]. Current interpretive data was last revised on 21. us Pineda Denise Radhakrishna Denis MD LAB MICROBIOLO GY - GENERAL ORDERABLES Final Result [facility] [place] [address] * Urinalysis reflex to microscopic (05/29/2024 3:31 PM CDT) Color, ur Yellow Yellow Clarity, ur Clear Clear [facility] Specific gravity, ur 1.013 1.003 - 1.030 [facility] pH, urine 5.5 [facility] Comment: Interpretive Data U rine pH is affected by diet, medications, systemic acid-base disturbances, and renal tubular function. pH may affect urinary stone formation. For example, urine pH below 6.0 may help reduce the tendency for calcium phosphate stones and pH greater than 6.0 may reduce the tendency for uric acid stone formation. Source: [facility] [employer] Current Interpretive Data was last revised on 2017 Protein, ur ql Trace Negative [facility] Glucose, ur ql Negative Negative [facility] Ketones, ur Negative Negative [facility] Bilirubin, ur Negative Negative [facility] Blood, ur Negative Negative [facility] Urobilinogen, ur <2.0 <2.0 mg/dL [facility] Nitrite, ur Negative Negative [facility] Leukocyte esterase, ur Negative Negative [facility] UA reflex comment Reflex conditions for microscopic UA not met. [facility] Urine 05/29/2024 3:31 PM CDT 05/29/2024 3:38 PM CDT Shruti Damon MD LAB URINE ORDERABLES Aniya l Result [facility] [place] [address] * POCT hCG, urine (05/29/2024 3:30 PM CDT) HCG, ur, POC Negative Negative Lot Number [id number] QC Backgroud Clear Acceptable QC Control Line Acceptable Urine 05/29/2024 3:30 PM CDT us Shruti Damon MD POINT OF CARE TEST ORDERA BLES Final Result * POCT lactate (05/29/2024 3:02 PM CDT) Lactate POC i-STAT 1.9 0.7 - 2.0 mmol/L Blood 05/29/2024 3:02 PM CDT 05/29/2024 3:02 PM CDT us Notinfile Unknown LAB POCT ORDERABLES - DEVICE F inal Result [facility] [place] [address] * (ABNORMAL) eGFR (05/29/2024 2:57 PM CDT) Pathologist [facility] eGFR 30(L) >=60 mL/min/1. 73 m2 Comment: Interpretive Data Reference Interval Normal >/= 90 mL/min/1.73m2 Mildly decreased* 60 - 89 mL/min/1.73m2 Mildly to moderately decreased 45 - 59 mL/min/1.73m2 Moderately to severely decreased 30 - 44 mL/min/1.73m2 Severely decreased 15 - 29 mL/min/1.73m2 Kidney Failure < 15 mL/min/1.73m2 *Relative to young adult level Estimated glomerular filtration rate is determined by the 2020 CKD-EPI equation recommended by the National Kidney Foundation (A Unifying Approach to GFR Estimation: Recommendations of the NKF-ASK Task Force on Reassessing the Inclusion of Race in Diagnosing Kidney Disease, JASN 2020). The CKD-EPI equation should not be used for patients with unstable renal function and has not been validated in children and those over 70. Current interpretive data was last reviewed 2021. Blood 05/29/2024 2:57 PM CDT 05/29/2024 3:20 PM CDT us Shruti Damon MD LAB BLOOD ORDERABLES Aniya andrez Result [facility] [place] [address] * Differential, auto (05/29/2024 2:57 PM CDT) Neutrophil abs 5.5 1.5 - 6.5 K/cumm Imm gran abs 0.0 0.0 - 0.1 K/cumm [facility] Lymphocyte abs 0.9 0.8 - 3.3 K/cumm [facility] Monocyte abs 0.4 0.2 - 0.8 K/cumm [facility] Eosinophil abs 0.1 0.0 - 0.5 K/cumm [facility] Basophil abs 0.0 0.0 - 0.1 K/cumm [facility] Neutrophil pct 79.6 % [facility] Comment: Interpretive Data Percent cell count reference ranges are not reported, since discordance with absolute values may lead to misinterpretation of CBC data. Current Interpretive Data was last revised on 2017. Imm gran pct 0.4 % [facility] Comment: Interpretive Data Percent cell count reference ranges are not reported, since discordance with absolute values may lead to misinterpretation of CBC data. Current Interpretive Data was last revised on 2017. Lymphocyte pct 13.7 % [facility] Comment: Interpretive Data Percent cell count reference ranges are not reported, since discordance with absolute values may lead to misinterpretation of CBC data. Current Interpretive Data was last revised on 2017. Monocyte pct 5.5 % [facility] Comment: Interpretive Data Percent cell count reference ranges are not reported, since discordance with absolute values may lead to misinterpretation of CBC data. Current Interpretive Data was last revised on 2017. Eosinophil pct 0.7 % [facility] Comment: Interpretive Data Percent cell count reference ranges are not reported, since discordance with absolute values may lead to misinterpretation of CBC data. Current Interpretive Data was last revised on 2017. Basophil pct 0.1 % [facility] Comment: Interpretive Data Percent cell count reference ranges are not reported, since discordance with absolute values may lead to misinterpretation of CBC data. Current Interpretive Data was last revised on 2017. Blood 05/29/2024 2:57 PM CDT 05/29/2024 3:21 PM CDT Shruti Damon MD LAB BLOOD ORDERABLES Aniya l Result Performing Organization Address [facility] Co de Phone Number [facility] [place] [employer] [place] [address] * (ABNORMAL) CBC with auto differential (05/29/2024 2:57 PM CDT) [facility] WBC 6.9 3.8 - 9.9 K/cumm Hgb 13.5 11.9 - 15.5 g/dL [facility] Hct 38.8 35.6 - 45.5 % [facility] Plt 129(L) 150 - 400 K/cumm [facility] MPV 10.7 9.1 - 12.3 fL [facility] RBC 3.88(L) 3.90 - 5.20 M/cumm [facility] MCV 100.0(H) 81.3 - 96.4 fL [facility] MCH 34.8(H) 27.1 - 33.3 pg [facility] MCHC 34.8 32.3 - 35.7 g/dL [facility] RDW CV 13.0 11.1 - 14.9 % [facility] RDW SD 47.6 35.7 - 48.1 fL [facility] NRBC abs 0.00 0.00 - 0.01 K/cumm [facility] Blood Venous blood specimen / Unknown 05/29/2024 2:57 PM CDT 05/29/2024 3:21 PM CDT Shruti Damon MD LAB BLOOD ORDERABLES Aniya l Result Performing Organization Address City/[facility]/ZIP Co de Phone Number [facility] [place] [employer] [place] [address] * Tacrolimus level random (05/29/2024 2:57 PM CDT) [facility] Tacrolimus random 20.2 ng/mL Comment: Interpretive Data Testing performed by liquid chromatography-tandem mass spectrometry. Therapeutic concentrations vary depending on type of transplanted organ and time elapsed since transplant. Typical trough concentrations range from 5-15 ng/mL. This test was developed and its performance characteristics determined by the [facility] consistent with CLIA requirements. This test has not been cleared or approved by the [place] Food and Drug administration. Current interpretive data last reviewed 2019. Blood 05/29/2024 2:57 PM CDT 05/29/2024 3:28 PM CDT Pineda Barrios MD LAB BLOOD ORDE RABLES Final Result Performing Organization Address [facility] Co de Phone Number [facility] [place] [address] * Lipase (05/29/2024 2:57 PM CDT) [facility] Lipase 12 10 - 99 Units/L Blood Venous blood specimen / Unknown 05/29/2024 2:57 PM CDT 05/29/2024 3:20 PM CDT Shruti Damon MD LAB BLOOD ORDERABLES Aniya l Result Performing Organization Address [facility]/ZIP Co de Phone Number [facility] [place] [address] * (ABNORMAL) Comprehensive metabolic panel (05/29/2024 2:57 PM CDT) [facility] Sodium 137 135 - 145 mmol/L Potassium, pl 4.6 3.3 - 4.9 mmol/L [facility] Chloride 107 97 - 110 mmol/L [facility] CO2 18(L) 22 - 32 mmol/L [facility] Anion gap 12 2 - 15 mmol/L [facility] BUN 22 6 - 25 mg/dL [facility] Creatinine 2.10(H) 0.60 - 1.10 mg/dL [facility] Glucose 185 70 - 199 mg/dL [facility] Comment: Interpretive Data Fasting glucose >/= 126 mg/dl is diagnostic for diabetes. Fasting is defined as no caloric intake for at least 8 hours. Fasting glucose between 100 mg/dl to 125 mg/dl is diagnostic of prediabetes. In a patient with classic symptoms of hyperglycemia or hyperglycemic crisis, a random glucose >/= 200 mg/dl is diagnostic for diabetes. In the absence of unequivocal hyperglycemia, results should be confirmed by repeat testing. The classification and Diagnosis of Diabetes Diabetes Care 202; 46: S19-S40. Current interpretive data was last revised 2022. Calcium 9.9 8.5 - 10.3 mg/dL [facility] Bilirubin, total 0.8 0.1 - 1.2 mg/dL [facility] Protein, pl 7.6 6.5 - 8.5 g/dL [facility] Albumin 4.0 3.5 - 5.0 g/dL [facility] Alk phos 372(H) 40 - 130 Units/L [facility] ALT 22 7 - 45 Units/L [facility] AST 28 10 - 45 Units/L [facility] Blood 05/29/2024 2:57 PM CDT 05/29/2024 3:20 PM CDT Shruti Damon MD LAB BLOOD ORDERABLES Aniya l Result Performing Organization Address City/State/[facility] Co de Phone Number [facility] [place] [address] * Hepatitis panel, acute (04/16/2020 6:35 AM [facility]) Hep A IgM Nonreactive Nonreactive [facility] Comment: Interpretive Data: If Hep A IgM Ab is reported as Equivocal, a new sample should be drawn in two weeks for testing. Current interpretive data was last revised on 19. Hep B core IgM Nonreactive Nonreactive [facility] Comment: Interpretive Data If HepB Core IgM Ab is reported as Equivocal, a new sample should be drawn in two weeks for testing. Current interpretive data was last revised on 19. Hep C Ab Nonreactive Nonreactive [facility] Comment:Antibodies to HCV no t detected. Does NOT exclude the possibility of recent exposure to HCV. HepBsAg Nonreactive Nonreactive [facility] Blood specimen (specimen) 04/16/2020 6:35 AM [facility] 04/16/2020 7:34 AM [facility] us Jacob Gates MD LAB MICROBIOLOGY - GENER AL ORDERABLES Final Result [facility] [place] [address] from Last 3 Months or Most Recently Relevant to Health Maintenance Insurance [employer] OPEN ACCESS [employer] HMO/PPO Address: [address] [place] [address] [facility] [employer] H[employer]PPO Address: [address] [place] [address] [facility] [employer] OPEN ACCESS [facility] EXCHANGE [place] Advance Directives For more information, please contact: [phone] * Full Code (Latest Code Status on File) Date Activated Date Inactivated Comments 05/29/2024 10:30 PM 06/13/2024 7:10 PM * Full Code Date Activated Date Inactivated Comments 04/16/2020 1:16 AM 04/23/2020 6:51 PM * Full Code Date Activated Date Inactivated Comments 08/14/2019 3:14 PM 08/14/2019 9:26 PM * Full Code Date Activated Date Inactivated Comments 07/25/2019 6:15 AM 07/25/2019 11:51 PM 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
--- OUTSIDE RECORDS SUMMARY | 2024-06-26 16:33 | XMS_ITS | Referral Summary ---
Author Organization [facility] Address [address] [place] [address] Care Team Providers Care Pourer Crane Ladle Name Role Phone Beatriz Lee MD Unavailable [phone] Lyly Fiore NP Primary Care Provider Taylor Kitchen RN Unavailable Unav ailable Encounters Date Type Department Care Team Description 06/26/2024 Orders Only [facility] Transplant Liver [address] [facility] [address] [id number] [place] [address] Dafne Dukes, ANSON Status post liver transplant (HCC) (Primary Dx); Encounter for long-term (current) use of medications 06/26/2024 Telephone [facility] Transplant Liver [address] [facility] [address] Mailstop [phone] [place] [address] Lorena Turner 06/26/2024 Orders Only [facility] Transplant Liver [address] [facility] [address] Mailstop [phone] [place] [address] Dafne Dukes, ANSON History of liver transplant (HCC) (Primary Dx); Encounter for long-term (current) use of medications 06/26/2024 Documentation [facility] Transplant Liver [address] [facility] [address] [employer] [phone] [place] [address] Dafne Dukes RN 06/26/2024 Telephone [facility] Transplant Liver [address] [facility] [address] Mailstop [id number] [place] [address] Dafne Dukes, ANSON 06/26/2024 9:30 AM CDT Office Visit [facility] [address] [facility] 12th [place] [address] [place] [id number] Beatriz Lee MD Nicotine dependence with current use 06/14/2024 SHOP/CHAP Initial Eligibility Review [facility] OP CASE MANAGEMENT [address] [place] [id number] Shireen Griffin RN 06/13/2024 Orders Only [facility] Transplant Liver [address] [place] [address] [address] [phone] [place] [address] Dafne Dukes RN Kidney transplanted (Primary Dx) 05/29/2024 3:11 PM CDT - 06/13/2024 3:04 PM CDT Hospital Encounter 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 Transplant Kidney [address] [facility] [address] [phone] [place], [place] [id number] Netta Mcintosh 05/09/2024 Telephone [facility] Transplant Liver [address] [facility] [address] [phone] [place] [address] Liyah Kamara 05/07/2024 Telephone [facility] Transplant Liver [address] [facility] [address] Mailstop [phone] [place] [address] Lorena Turner 05/07/2024 Telephone [facility] Transplant Liver [address] [facility] [address] Mailstop 05-09-275 [place] [address] Lorena Turner 05/06/2024 Documentation [facility] Transplant Liver [address] [facility] [address] Mailstop [phone] [place] [address] Taylor Kitchen RN 05/06/2024 Telephone [facility] Transplant Liver [address] [facility] [address] Mailstop [phone] [place] [address] Lorena Turner Referral - Liver Txp from Last 3 Months Allergies Active Allergy Reactions Criticality Noted Date [...] g total) by mouth daily 1800 mL 025 2024 Active Abilify 2 mg tablet Take [...] total) by mouth daily 30 tablet 11 025 2025 Active predniSONE (DELTASONE) 5 mg tablet [...] mouth 2 (two) times a day 2024 Discontinued(S top Taking at Discharge) predniSONE [...] g total) by mouth daily 30 packet 025 2024 Discontinued(S top Taking at Discharge) tacrolimus XR (ENVARSUS XR) 4 mg tablet extended release 24 hrIndications:Pre vention of Kidney Transplant Rejection Take 1 tablet (4 mg total) by mouth daily 30 tablet 025 03/27/ 2025 Discontinued(S top Taking at Discharge) sodium polystyrene [...] t be different from the original. Lab: [facility]. . . Pharmacy: [place], [place] Patient enrolled in [employer] assistance program for Envarsus until 03/2025 -[facility] for script Problem Noted Date Diagnosed [...] Transplant starting process of assuming care from [place], but in short term they recommend patient follow up with renal transplant at [facility]. - She is NOW actively enrolled in the [employer] free patient assistance program through mar 2025 - script needs to be sent to [facility] (sent). Hyperbilirubinemia 04/16/2020 Assessment & Plan (04/16/2020 5:01 AM GUIDE VISITOR): - T. Bili of 7 (last was [...] 07/25/2019 Assessment & Plan (04/16/2020 2:25 AM GUIDE VISITOR): See hyperbili problem. Concern for ascites Assessment [...] 12/14/2016 Assessment & Plan (04/16/2020 2:26 AM GUIDE VISITOR): - Chronic, concerned that this may be [...] liver and kidney transplant 04/2020. 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 We would need to call [facility] to identify a contracted center ([phone]). She lives close enough to [place] that would be the most likely city she could travel to. She also noted that she could always remarry an ex- as he has insurance that may be covered at [facility]/. Appreciate note from nephrology and agree with restarting oral diuretics. Can continue tacrolimus at the current dose. MRI/MRCP completed and will review with radiology to identify if any role for PTC. Assessment & Plan (04/16/2020 2:26 AM GUIDE VISITOR): S/p liver tranplant in 1992 for biliary [...] meds Assessment & Plan (04/16/2020 5:01 AM GUIDE VISITOR): Unclear if progression of CKD vs acute [...] Cr of 1.8. She follows with local application assistant Dr. Mathew and thinks her baseline is 2.1. She was at 2.3 at OSH. She took some diuretics at home and was given lasix at OSH ED. --UA, urine lytes --get records from her application assistant to find out baseline --random tacro level --monitor Is & Os; avoid nephrotoxins Social History Tobacco Use Types Packs/Day Years [...] on file Legal Sex Female 10:10 PM GUIDE VISITOR Gender Identity Not on file Sexual Orientation [...] 06/26/2024 9:52 AM CDT Plan of Treatment Not on file Procedures Procedure Name Priority Date/Time Associated Diagnosis [...] CDT HEPATITIS PANEL, ACUTE Routine 6:35 AM GUIDE VISITOR from Last 3 Months or Most Recently Relevant to Health Maintenance Results * (ABNORMAL) eGFR (06/13/2024 5:15 AM CDT) Pathologist [facility] eGFR 31(L) >=60 mL/min/1. 73 m2 Comment: [...] MD PhD LAB BLOOD ORDERABLES Final Result [facility] Department [place] [address] * Differential, auto (06/13/2024 5:15 AM CDT) [facility] Neutrophil abs 3.2 1.5 - 6.5 K/cumm Imm gran abs 0.0 0.0 - 0.1 K/cumm [facility] Lymphocyte abs 0.9 0.8 - 3.3 K/cumm [facility] Monocyte abs 0.3 0.2 - 0.8 K/cumm [facility] Eosinophil abs 0.2 0.0 - 0.5 K/cumm [facility] Basophil abs 0.0 0.0 - 0.1 K/cumm [facility] Neutrophil pct 69.4 % [facility] Comment: Interpretive Data Percent cell count reference ranges are not reported, since discordance with absolute values may lead to misinterpretation of CBC data. Current Interpretive Data was last revised on 2017. Imm gran pct 0.2 % [facility] Comment: Interpretive Data Percent cell count reference ranges are not reported, since discordance with absolute values may lead to misinterpretation of CBC data. Current Interpretive Data was last revised on 2017. Lymphocyte pct 20.4 % [facility] Comment: Interpretive Data Percent cell count reference ranges are not reported, since discordance with absolute values may lead to misinterpretation of CBC data. Current Interpretive Data was last revised on 2017. Monocyte pct 5.9 % [facility] Comment: Interpretive Data Percent cell count reference ranges are not reported, since discordance with absolute values may lead to misinterpretation of CBC data. Current Interpretive Data was last revised on 2017. Eosinophil pct 3.9 % [facility] Comment: Interpretive Data Percent cell count reference ranges are not reported, since discordance with absolute values may lead to misinterpretation of CBC data. Current Interpretive Data was last revised on 2017. Basophil pct 0.2 % [facility] Comment: Interpretive Data Percent cell count reference ranges are not reported, since discordance with absolute values may lead to misinterpretation of CBC data. Current Interpretive Data was last revised on 2017. Blood 06/13/2024 5:15 AM CDT 06/13/2024 6:05 AM CDT us Martha Butterfield MD LAB BLOOD ORDERABLES F inal Result [facility] [address] [facility] Department [place] [address] * Tacrolimus level trough (06/13/2024 5:15 AM CDT) Tacrolimus trough 7.4 ng/mL Comment: Interpretive Data Testing performed by liquid chromatography-tandem mass spectrometry. Therapeutic concentrations vary depending on type of transplanted organ and time elapsed since transplant. Typical trough concentrations range from 5-15 ng/mL. This test was developed and its performance characteristics determined by the [facility] consistent with CLIA requirements. This test has not been cleared or approved by the US Food and Drug administration. Current interpretive data last reviewed 2019. Blood 06/13/2024 5:15 AM CDT 06/13/2024 6:05 AM CDT us Patricia Davidson MD PhD LAB BLOOD ORDERABLES Final Result Performing Organization Address City/[facility]/ZIP Co de Phone Number [facility] Department [place] [address] * (ABNORMAL) CBC with auto differential (06/13/2024 5:15 AM CDT) WBC 4.6 3.8 - 9.9 K/cumm Hgb 11.1(L) 11.9 - 15.5 g/dL [facility] Hct 32.8(L) 35.6 - 45.5 % [facility] Plt 112(L) 150 - 400 K/cumm [facility] MPV 11.6 9.1 - 12.3 fL [facility] RBC 3.13(L) 3.90 - 5.20 M/cumm [facility] MCV 104.8(H) 81.3 - 96.4 fL [facility] MCH 35.5(H) 27.1 - 33.3 pg [facility] MCHC 33.8 32.3 - 35.7 g/dL [facility] RDW CV 14.8 11.1 - 14.9 % [facility] RDW SD 56.5(H) 35.7 - 48.1 fL [facility] NRBC abs 0.00 0.00 - 0.01 K/cumm [facility] Blood 06/13/2024 5:15 AM CDT 06/13/2024 6:05 AM CDT us Martha Butterfield MD LAB BLOOD ORDERABLES F inal Result Performing Organization Address City/[facility]/ZIP Co de Phone Number [facility] Department [place] [address] * (ABNORMAL) Renal function panel (06/13/2024 5:15 AM CDT) Pathologist [facility] Sodium 144 135 - 145 mmol/L Potassium, pl 4.9 3.3 - 4.9 mmol/L [facility] Chloride 111(H) 97 - 110 mmol/L [facility] CO2 25 22 - 32 mmol/L [facility] Anion gap 8 2 - 15 mmol/L [facility] BUN 27(H) 6 - 25 mg/dL [facility] Creatinine 2.03(H) 0.60 - 1.10 mg/dL [facility] Glucose 121 70 - 199 mg/dL [facility] Comment: Interpretive Data Fasting glucose >/= 126 [...] 2022. Calcium 8.6 8.5 - 10.3 mg/dL [facility] Phosphorus, pl 3.9 2.3 - 4.5 mg/dL [facility] Albumin 3.6 3.5 - 5.0 g/dL [facility] Blood 06/13/2024 5:15 AM CDT 06/13/2024 6:05 AM CDT us Patricia Davidson MD PhD LAB BLOOD ORDERABLES Final Result [facility] Department [place] [address] * (ABNORMAL) eGFR (06/12/2024 5:52 AM CDT) [...] BLOOD ORDERABLES Final Result Performing Organization Address [facility] de Phone Number [facility] Department [place] [address] * Tacrolimus level trough (06/12/2024 5:52 AM CDT) [facility] Signature Tacrolimus trough 6.2 ng/mL Comment: Interpretive Data Testing performed by liquid chromatography-tandem mass spectrometry. Therapeutic concentrations vary depending on type of transplanted organ and time elapsed since transplant. Typical trough concentrations range from 5-15 ng/mL. This test was developed and its performance characteristics determined by the [facility] consistent with CLIA requirements. This test has not been cleared or approved by the US Food and Drug administration. Current interpretive data last reviewed 2019. Blood 06/12/2024 5:52 AM CDT 06/12/2024 6:18 AM CDT Patricia Davidson MD PhD LAB BLOOD ORDERABLES Final Result Performing Organization Address City/[facility]/ZIP Co de Phone Number [facility] Department [place] [address] * (ABNORMAL) Renal function panel (06/12/2024 5:52 AM CDT) Pathologist [facility] Sodium 145 135 - 145 mmol/L Potassium, pl 5.0(H) 3.3 - 4.9 mmol/L [facility] Chloride 112(H) 97 - 110 mmol/L [facility] CO2 27 22 - 32 mmol/L [facility] Anion gap 6 2 - 15 mmol/L [facility] BUN 30(H) 6 - 25 mg/dL [facility] Creatinine 2.16(H) 0.60 - 1.10 mg/dL [facility] Glucose 101 70 - 199 mg/dL [facility] Comment: Interpretive Data Fasting glucose >/= 126 [...] 2022. Calcium 8.7 8.5 - 10.3 mg/dL [facility] Phosphorus, pl 4.3 2.3 - 4.5 mg/dL [facility] Albumin 3.4(L) 3.5 - 5.0 g/dL [facility] Blood 06/12/2024 5:52 AM CDT 06/12/2024 6:17 AM CDT us Patricia Davidson MD PhD LAB BLOOD ORDERABLES Final Result [facility] Department [place] [address] * Potassium, whole blood (06/11/2024 11:29 PM CDT) [facility] Potassium, bld 4.7 3.3 - 4.9 mmol/L Blood 06/11/2024 11:2 9 PM CDT 06/11/2024 11:48 PM CDT Patrick Hernandez MD LAB BLOOD ORDERABLES Fi nal Result [facility] Department [place] [address] * (ABNORMAL) eGFR (06/11/2024 5:14 AM CDT) [facility] eGFR 28(L) >=60 mL/min/1. 73 m2 Comment: [...] MD PhD LAB BLOOD ORDERABLES Final Result [facility] Department [place] [address] * Differential, auto (06/11/2024 5:14 AM CDT) Neutrophil abs 2.3 1.5 - 6.5 K/cumm Imm gran abs 0.0 0.0 - 0.1 K/cumm [facility] Lymphocyte abs 1.0 0.8 - 3.3 K/cumm [facility] Monocyte abs 0.3 0.2 - 0.8 K/cumm [facility] Eosinophil abs 0.2 0.0 - 0.5 K/cumm [facility] Basophil abs 0.0 0.0 - 0.1 K/cumm [facility] Neutrophil pct 61.8 % [facility] Comment: Interpretive Data Percent cell count reference ranges are not reported, since discordance with absolute values may lead to misinterpretation of CBC data. Current Interpretive Data was last revised on 2017. Imm gran pct 0.5 % [facility] Comment: Interpretive Data Percent cell count reference ranges are not reported, since discordance with absolute values may lead to misinterpretation of CBC data. Current Interpretive Data was last revised on 2017. Lymphocyte pct 26.6 % [facility] Comment: Interpretive Data Percent cell count reference ranges are not reported, since discordance with absolute values may lead to misinterpretation of CBC data. Current Interpretive Data was last revised on 2017. Monocyte pct 6.6 % [facility] Comment: Interpretive Data Percent cell count reference ranges are not reported, since discordance with absolute values may lead to misinterpretation of CBC data. Current Interpretive Data was last revised on 2017. Eosinophil pct 4.2 % [facility] Comment: Interpretive Data Percent cell count reference ranges are not reported, since discordance with absolute values may lead to misinterpretation of CBC data. Current Interpretive Data was last revised on 2017. Basophil pct 0.3 % [facility] Comment: Interpretive Data Percent cell count reference ranges are not reported, since discordance with absolute values may lead to misinterpretation of CBC data. Current Interpretive Data was last revised on 2017. Blood 06/11/2024 5:14 AM CDT 06/11/2024 6:24 AM CDT us Martha Butterfield MD LAB BLOOD ORDERABLES F inal Result Performing Organization Address [facility] de Phone Number [facility] [place] [address] * Tacrolimus level trough (06/11/2024 5:14 AM CDT) [facility] Tacrolimus trough 5.4 ng/mL Comment: Interpretive Data Testing performed by liquid chromatography-tandem mass spectrometry. Therapeutic concentrations vary depending on type of transplanted organ and time elapsed since transplant. Typical trough concentrations range from 5-15 ng/mL. This test was developed and its performance characteristics determined by the [facility] consistent with CLIA requirements. This test has not been cleared or approved by the US Food and Drug administration. Current interpretive data last reviewed 2019. Blood 06/11/2024 5:14 AM CDT 06/11/2024 5:51 AM CDT Patricia Davidson MD PhD LAB BLOOD ORDERABLES Final Result Performing Organization Address [facility] de Phone Number [facility] Department [place] [address] * (ABNORMAL) CBC with auto differential (06/11/2024 5:14 AM CDT) [facility] WBC 3.8 3.8 - 9.9 K/cumm Hgb 10.3(L) 11.9 - 15.5 g/dL [facility] Hct 30.0(L) 35.6 - 45.5 % [facility] Plt 93(L) 150 - 400 K/cumm [facility] MPV 11.5 9.1 - 12.3 fL [facility] RBC 2.82(L) 3.90 - 5.20 M/cumm [facility] MCV 106.4(H) 81.3 - 96.4 fL [facility] MCH 36.5(H) 27.1 - 33.3 pg [facility] MCHC 34.3 32.3 - 35.7 g/dL [facility] RDW CV 14.5 11.1 - 14.9 % [facility] RDW SD 55.4(H) 35.7 - 48.1 fL [facility] NRBC abs 0.00 0.00 - 0.01 K/cumm [facility] Blood 06/11/2024 5:14 AM CDT 06/11/2024 6:24 AM CDT us Martha Butterfield MD LAB BLOOD ORDERABLES F inal Result [facility] Department [place] [address] * (ABNORMAL) Renal function panel (06/11/2024 5:14 AM CDT) Sodium 141 135 - 145 mmol/L Potassium, pl 4.6 3.3 - 4.9 mmol/L [facility] Chloride 109 97 - 110 mmol/L [facility] CO2 23 22 - 32 mmol/L [facility] Anion gap 9 2 - 15 mmol/L [facility] BUN 29(H) 6 - 25 mg/dL [facility] Creatinine 2.24(H) 0.60 - 1.10 mg/dL [facility] Glucose 133 70 - 199 mg/dL [facility] Comment: Interpretive Data Fasting glucose >/= 126 [...] 2022. Calcium 8.6 8.5 - 10.3 mg/dL [facility] Phosphorus, pl 3.8 2.3 - 4.5 mg/dL [facility] Albumin 3.4(L) 3.5 - 5.0 g/dL [facility] Blood 06/11/2024 5:14 AM CDT 06/11/2024 5:51 AM CDT Patricia Davidson MD PhD LAB BLOOD ORDERABLES Final Result Performing Organization Address [facility] [place]/[facility] Co de Phone Number [facility] [place] [address] * Potassium, whole blood (06/10/2024 10:18 PM CDT) Potassium, bld 4.7 3.3 - 4.9 mmol/L Blood 06/10/2024 10:1 8 PM CDT 06/10/2024 11:20 PM CDT Result [facility] Martha Butterfield MD LAB BLOOD ORDERABLES F inal Result Performing Organization Address [facility] de Phone Number [facility] [place] [address] * POCT glucose (06/10/2024 1:15 PM CDT) Glucose, POC 145 70 - 199 mg/dL Blood 06/10/2024 1:15 PM CDT 06/10/2024 1:15 PM CDT Result [facility] Martha Butterfield MD LAB POCT ORDERABLES - DEVICE Final Result Performing Organization Address [facility] de Phone Number [facility] [place] [address] * Potassium (06/10/2024 10:34 AM CDT) Potassium, pl 4.7 3.3 - 4.9 mmol/L Blood 06/10/2024 10:3 4 AM CDT 06/10/2024 11:28 AM CDT Martha Butterfield MD LAB BLOOD ORDERABLES F inal Result Performing Organization Address City/[facility] [place]/[facility] Co de Phone Number [facility] [place] [place] [address] * (ABNORMAL) Hepatic function panel (06/10/2024 10:34 AM CDT) Bilirubin, total 0.7 0.1 - 1.2 mg/dL Bilirubin, direct 0.3 0.1 - 0.3 mg/dL [facility] Protein, pl 6.3(L) 6.5 - 8.5 g/dL [facility] Albumin 3.7 3.5 - 5.0 g/dL [facility] Alk phos 253(H) 40 - 130 Units/L [facility] ALT 23 7 - 45 Units/L [facility] AST 25 10 - 45 Units/L [facility] Blood 06/10/2024 10:3 4 AM CDT 06/10/2024 11:28 AM CDT us Martha Butterfield MD LAB BLOOD ORDERABLES F inal Result Performing Organization Address [facility]/ZIP Co de Phone Number [facility] [place] [address] * POCT glucose (06/10/2024 9:48 AM CDT) Glucose, POC 157 70 - 199 mg/dL Blood 06/10/2024 9:4 8 AM CDT 06/10/2024 9:48 AM CDT Martha Butterfield MD LAB POCT ORDERABLES - DEVICE Final Result Performing Organization Address City/[facility]/ZIP Co de Phone Number [facility] [place] [address] * POCT glucose (06/10/2024 6:35 AM CDT) Glucose, POC 137 70 - 199 mg/dL Blood 06/10/2024 6:35 AM CDT 06/10/2024 6:35 AM CDT us Martha Butterfield MD LAB POCT ORDERABLES - DEVICE Final Result Performing Organization Address [facility] Co de Phone Number [facility] [place] [address] * (ABNORMAL) Potassium, whole blood (06/10/2024 4:17 AM CDT) Potassium, bld 5.2(H) 3.3 - 4.9 mmol/L Blood 06/10/2024 4:17 AM CDT 06/10/2024 4:24 AM CDT us Lyndsey Ramos MD LAB BLOOD ORDERABLES Aniya l Result Performing Organization Address [facility] [place]/[facility] Co de Phone Number [facility] [place] [address] * (ABNORMAL) eGFR (06/10/2024 4:14 AM CDT) [...] 4:14 AM CDT 06/10/2024 4:32 AM CDT Patricia Davidson MD PhD LAB BLOOD ORDERABLES Final Result Performing Organization Address [facility] [facility] [place]/[facility] de Phone Number [facility] [place] [address] * Tacrolimus level trough (06/10/2024 4:14 AM CDT) [facility] Tacrolimus trough 9.6 ng/mL Comment: Interpretive Data Testing performed by liquid chromatography-tandem mass spectrometry. Therapeutic concentrations vary depending on type of transplanted organ and time elapsed since transplant. Typical trough concentrations range from 5-15 ng/mL. This test was developed and its performance characteristics determined by the [facility] consistent with CLIA requirements. This test has not been cleared or approved by the US Food and Drug administration. Current interpretive data last reviewed 2019. Blood 06/10/2024 4:14 AM CDT 06/10/2024 4:32 AM CDT Patricia Davidson MD PhD LAB BLOOD ORDERABLES Final Result Performing Organization Address [facility] Phone Number [facility] [place] [address] * (ABNORMAL) Renal function panel (06/10/2024 4:14 AM CDT) [facility] Sodium 142 135 - 145 mmol/L Potassium, pl 5.6(H) 3.3 - 4.9 mmol/L [facility] Comment:Hemolyzed; Potassium value may be falsely elevated by as much as 0.3-0.5 mmol/L. Suggest redraw and reanalysis. Chloride 112(H) 97 - 110 mmol/L [facility] CO2 24 22 - 32 mmol/L [facility] Anion gap 6 2 - 15 mmol/L [facility] BUN 29(H) 6 - 25 mg/dL [facility] Creatinine 2.11(H) 0.60 - 1.10 mg/dL [facility] Glucose 158 70 - 199 mg/dL [facility] Comment: Interpretive Data Fasting glucose >/= 126 [...] 2022. Calcium 9.1 8.5 - 10.3 mg/dL [facility] Phosphorus, pl 3.7 2.3 - 4.5 mg/dL [facility] Albumin 3.6 3.5 - 5.0 g/dL [facility] Blood 06/10/2024 4:14 AM CDT 06/10/2024 4:32 AM CDT us Patricia Davidson MD PhD LAB BLOOD ORDERABLES Final Result [facility] Department [place] [employer] [address] * (ABNORMAL) POCT glucose (06/10/2024 2:27 AM CDT) [facility] Glucose, POC 210(H) 70 - 199 mg/dL Blood 06/10/2024 2:27 AM CDT 06/10/2024 2:27 AM CDT us Martha Butterfield MD LAB POCT ORDERABLES - DEVICE Final Result [facility] Department [place] [address] * (ABNORMAL) POCT glucose (06/10/2024 1:25 AM CDT) Glucose, POC 277(H) 70 - 199 mg/dL Blood 06/10/2024 1:25 AM CDT 06/10/2024 1:25 AM CDT Martha Butterfield MD LAB POCT ORDERABLES - DEVICE Final Result Performing Organization Address City/[facility] Co de Phone Number [facility] Department [place] [address] * POCT glucose (06/10/2024 12:24 AM CDT) [facility] Glucose, POC 138 70 - 199 mg/dL Blood 06/10/2024 12:2 4 AM CDT 06/10/2024 12:24 AM CDT Martha Butterfield MD LAB POCT ORDERABLES - DEVICE Final Result Performing Organization Address City/[facility] de Phone Number [facility] Department [place] [address] * ECG 12 lead (06/10/2024 12:20 AM CDT) [facility] Ventricular Rate EKG/Min 65 BPM [facility] Atrial Rate 65 BPM [facility] DE-Interval (MSEC) 160 ms [facility] QRS-Interval (MSEC) 72 ms [facility] QT-Interval (MSEC) 452 ms [facility] QTc 470 ms [facility] P [place] -11 degrees [facility] R [place] -16 degrees [facility] T [place] 54 degrees [facility] Diagnosis Normal sinus rhythm Low voltage QRS [...] Septal leads Confirmed by BRODIE LEIGH M.D ([id number]) on 06/11/2024 10:14:44 AM [facility] 06/10/2024 12:2 0 AM CDT 06/11/2024 10:14 AM CDT Martha Butterfield MD ECG ORDERABLES Final Result [facility] * (ABNORMAL) Potassium, whole blood (06/09/2024 11:26 PM CDT) Potassium, bld 5.7(H) 3.3 - 4.9 mmol/L Blood 06/09/2024 11:2 6 PM CDT 06/09/2024 11:37 PM CDT Martha Butterfield MD LAB BLOOD ORDERABLES F inal Result Performing Organization Address City/[facility] [place]/[facility] Co de Phone Number [facility] Department [place] [address] * (ABNORMAL) eGFR (06/09/2024 6:33 PM CDT) [...] MD LAB BLOOD ORDERABLES F inal Result [facility] Department [place] [address] * (ABNORMAL) Renal function panel (06/09/2024 6:33 PM CDT) Sodium 141 135 - 145 mmol/L Potassium, pl 5.5(H) 3.3 - 4.9 mmol/L [facility] Comment:Hemolyzed; Potassium value may be falsely elevated by as much as 0.3-0.5 mmol/L. Suggest redraw and reanalysis. Chloride 112(H) 97 - 110 mmol/L [facility] CO2 17(L) 22 - 32 mmol/L [facility] Anion gap 12 2 - 15 mmol/L [facility] BUN 32(H) 6 - 25 mg/dL [facility] Creatinine 2.08(H) 0.60 - 1.10 mg/dL [facility] Glucose 111 70 - 199 mg/dL [facility] Comment: Interpretive Data Fasting glucose >/= 126 [...] 2022. Calcium 8.7 8.5 - 10.3 mg/dL [facility] Phosphorus, pl 4.0 2.3 - 4.5 mg/dL [facility] Albumin 3.1(L) 3.5 - 5.0 g/dL [facility] Blood 06/09/2024 6:33 PM CDT 06/09/2024 6:48 PM CDT us Martha Butterfield MD LAB BLOOD ORDERABLES F inal Result Performing Organization Address [facility] [place]/[facility] Co de Phone Number [facility] [place] [address] * (ABNORMAL) eGFR (06/09/2024 5:12 AM CDT) Pathologist [facility] eGFR 30(L) >=60 mL/min/1. 73 m2 Comment: [...] BLOOD ORDERABLES Final Result Performing Organization Address City/[facility]/ZIP Co de Phone Number [facility] Department [place] [address] * Differential, auto (06/09/2024 5:12 AM CDT) [facility] Neutrophil abs 2.5 1.5 - 6.5 K/cumm Imm gran abs 0.0 0.0 - 0.1 K/cumm [facility] Lymphocyte abs 1.0 0.8 - 3.3 K/cumm [facility] Monocyte abs 0.4 0.2 - 0.8 K/cumm [facility] Eosinophil abs 0.2 0.0 - 0.5 K/cumm [facility] Basophil abs 0.0 0.0 - 0.1 K/cumm [facility] Neutrophil pct 61.7 % [facility] Comment: Interpretive Data Percent cell count reference ranges are not reported, since discordance with absolute values may lead to misinterpretation of CBC data. Current Interpretive Data was last revised on 2017. Imm gran pct 0.2 % [facility] Comment: Interpretive Data Percent cell count reference ranges are not reported, since discordance with absolute values may lead to misinterpretation of CBC data. Current Interpretive Data was last revised on 2017. Lymphocyte pct 25.2 % [facility] Comment: Interpretive Data Percent cell count reference ranges are not reported, since discordance with absolute values may lead to misinterpretation of CBC data. Current Interpretive Data was last revised on 2017. Monocyte pct 8.8 % [facility] Comment: Interpretive Data Percent cell count reference ranges are not reported, since discordance with absolute values may lead to misinterpretation of CBC data. Current Interpretive Data was last revised on 2017. Eosinophil pct 3.9 % [facility] Comment: Interpretive Data Percent cell count reference ranges are not reported, since discordance with absolute values may lead to misinterpretation of CBC data. Current Interpretive Data was last revised on 2017. Basophil pct 0.2 % [facility] Comment: Interpretive Data Percent cell count reference ranges are not reported, since discordance with absolute values may lead to misinterpretation of CBC data. Current Interpretive Data was last revised on 2017. Blood 06/09/2024 5:12 AM CDT 06/09/2024 5:43 AM CDT us Martha Butterfield MD LAB BLOOD ORDERABLES F inal Result [facility] Department [place] [address] * Tacrolimus level trough (06/09/2024 5:12 AM CDT) [facility] Tacrolimus trough 7.5 ng/mL Comment: Interpretive Data Testing performed by liquid chromatography-tandem mass spectrometry. Therapeutic concentrations vary depending on type of transplanted organ and time elapsed since transplant. Typical trough concentrations range from 5-15 ng/mL. This test was developed and its performance characteristics determined by the [facility] consistent with CLIA requirements. This test has not been cleared or approved by the US Food and Drug administration. Current interpretive data last reviewed 2019. Blood 06/09/2024 5:12 AM CDT 06/09/2024 5:43 AM CDT us Patricia Davidson MD PhD LAB BLOOD ORDERABLES Final Result [facility] Department [place] [address] * (ABNORMAL) CBC with auto differential (06/09/2024 5:12 AM CDT) [facility] WBC 4.1 3.8 - 9.9 K/cumm Hgb 10.9(L) 11.9 - 15.5 g/dL [facility] Hct 32.1(L) 35.6 - 45.5 % [facility] Plt 104(L) 150 - 400 K/cumm [facility] MPV 11.5 9.1 - 12.3 fL [facility] RBC 3.05(L) 3.90 - 5.20 M/cumm [facility] MCV 105.2(H) 81.3 - 96.4 fL [facility] MCH 35.7(H) 27.1 - 33.3 pg [facility] MCHC 34.0 32.3 - 35.7 g/dL [facility] RDW CV 14.7 11.1 - 14.9 % [facility] RDW SD 55.7(H) 35.7 - 48.1 fL [facility] NRBC abs 0.00 0.00 - 0.01 K/cumm [facility] Blood 06/09/2024 5:12 AM CDT 06/09/2024 5:43 AM CDT us Martha Butterfield MD LAB BLOOD ORDERABLES F inal Result [facility] Department [place] [address] * (ABNORMAL) Renal function panel (06/09/2024 5:12 AM CDT) Sodium 144 135 - 145 mmol/L Potassium, pl 5.1(H) 3.3 - 4.9 mmol/L [facility] Chloride 111(H) 97 - 110 mmol/L [facility] CO2 23 22 - 32 mmol/L [facility] Anion gap 10 2 - 15 mmol/L [facility] BUN 33(H) 6 - 25 mg/dL [facility] Creatinine 2.08(H) 0.60 - 1.10 mg/dL [facility] Glucose 104 70 - 199 mg/dL [facility] Comment: Interpretive Data Fasting glucose >/= 126 [...] 2022. Calcium 8.7 8.5 - 10.3 mg/dL [facility] Phosphorus, pl 4.4 2.3 - 4.5 mg/dL [facility] Albumin 3.5 3.5 - 5.0 g/dL [facility] Blood 06/09/2024 5:12 AM CDT 06/09/2024 5:43 AM CDT us Patricia Davidson MD PhD LAB BLOOD ORDERABLES Final Result Performing Organization Address City/[facility]/ZIP Co de Phone Number [facility] [place] [address] * (ABNORMAL) Potassium, whole blood (06/08/2024 8:37 AM CDT) Potassium, bld 5.0(H) 3.3 - 4.9 mmol/L Blood 06/08/2024 8:37 AM CDT 06/08/2024 9:17 AM CDT Martha Butterfield MD LAB BLOOD ORDERABLES F inal Result Performing Organization Address [facility] Co de Phone Number [facility] Department [place] [address] * (ABNORMAL) eGFR (06/08/2024 5:40 AM CDT) [...] BLOOD ORDERABLES Final Result Performing Organization Address [facility] Co de Phone Number [facility] [employer] [address] * Tacrolimus level trough (06/08/2024 5:40 AM CDT) Tacrolimus trough 6.6 ng/mL Comment: Interpretive Data Testing performed by liquid chromatography-tandem mass spectrometry. Therapeutic concentrations vary depending on type of transplanted organ and time elapsed since transplant. Typical trough concentrations range from 5-15 ng/mL. This test was developed and its performance characteristics determined by the [facility] consistent with CLIA requirements. This test has not been cleared or approved by the US Food and Drug administration. Current interpretive data last reviewed 2019. Blood 06/08/2024 5:40 AM CDT 06/08/2024 6:19 AM CDT Result [facility] Patricia Davidson MD PhD LAB BLOOD ORDERABLES Final Result Performing Organization Address [facility] Co de Phone Number [facility] [place] [address] * (ABNORMAL) Renal function panel (06/08/2024 5:40 AM CDT) Pathologist [facility] Sodium 144 135 - 145 mmol/L Potassium, pl 5.1(H) 3.3 - 4.9 mmol/L [facility] Chloride 114(H) 97 - 110 mmol/L [facility] CO2 23 22 - 32 mmol/L [facility] Anion gap 7 2 - 15 mmol/L [facility] BUN 31(H) 6 - 25 mg/dL [facility] Creatinine 2.07(H) 0.60 - 1.10 mg/dL [facility] Glucose 100 70 - 199 mg/dL [facility] Comment: Interpretive Data Fasting glucose >/= 126 [...] 2022. Calcium 8.7 8.5 - 10.3 mg/dL [facility] Phosphorus, pl 4.5 2.3 - 4.5 mg/dL [facility] Albumin 3.3(L) 3.5 - 5.0 g/dL [facility] Blood 06/08/2024 5:40 AM CDT 06/08/2024 6:19 AM CDT us Patricia Davidson MD PhD LAB BLOOD ORDERABLES Final Result [facility] Department [place] [address] * (ABNORMAL) eGFR (06/07/2024 5:17 AM CDT) eGFR 33(L) >=60 mL/min/1. 73 m2 Comment: [...] MD PhD LAB BLOOD ORDERABLES Final Result [facility] Department [place] [address] * Differential, auto (06/07/2024 5:17 AM CDT) Neutrophil abs 2.9 1.5 - 6.5 K/cumm Imm gran abs 0.0 0.0 - 0.1 K/cumm [facility] Lymphocyte abs 1.1 0.8 - 3.3 K/cumm [facility] Monocyte abs 0.3 0.2 - 0.8 K/cumm [facility] Eosinophil abs 0.2 0.0 - 0.5 K/cumm [facility] Basophil abs 0.0 0.0 - 0.1 K/cumm [facility] Neutrophil pct 64.2 % [facility] Comment: Interpretive Data Percent cell count reference ranges are not reported, since discordance with absolute values may lead to misinterpretation of CBC data. Current Interpretive Data was last revised on 2017. Imm gran pct 0.2 % [facility] Comment: Interpretive Data Percent cell count reference ranges are not reported, since discordance with absolute values may lead to misinterpretation of CBC data. Current Interpretive Data was last revised on 2017. Lymphocyte pct 24.2 % [facility] Comment: Interpretive Data Percent cell count reference ranges are not reported, since discordance with absolute values may lead to misinterpretation of CBC data. Current Interpretive Data was last revised on 2017. Monocyte pct 7.2 % [facility] Comment: Interpretive Data Percent cell count reference ranges are not reported, since discordance with absolute values may lead to misinterpretation of CBC data. Current Interpretive Data was last revised on 2017. Eosinophil pct 4.0 % [facility] Comment: Interpretive Data Percent cell count reference ranges are not reported, since discordance with absolute values may lead to misinterpretation of CBC data. Current Interpretive Data was last revised on 2017. Basophil pct 0.2 % [facility] Comment: Interpretive Data Percent cell count reference ranges are not reported, since discordance with absolute values may lead to misinterpretation of CBC data. Current Interpretive Data was last revised on 2017. Blood 06/07/2024 5:17 AM CDT 06/07/2024 6:14 AM CDT Martha Butterfield MD LAB BLOOD ORDERABLES F inal Result Performing Organization Address [facility] de Phone Number [facility] [place] [address] * Tacrolimus level trough (06/07/2024 5:17 AM CDT) [facility] Tacrolimus trough 6.2 ng/mL Comment: Interpretive Data Testing performed by liquid chromatography-tandem mass spectrometry. Therapeutic concentrations vary depending on type of transplanted organ and time elapsed since transplant. Typical trough concentrations range from 5-15 ng/mL. This test was developed and its performance characteristics determined by the [facility] consistent with CLIA requirements. This test has not been cleared or approved by the US Food and Drug administration. Current interpretive data last reviewed 2019. Blood 06/07/2024 5:17 AM CDT 06/07/2024 6:14 AM CDT us Patricia Davidson MD PhD LAB BLOOD ORDERABLES Final Result Performing Organization Address [facility] de Phone Number [facility] [place] [employer] [place] [address] * (ABNORMAL) CBC with auto differential (06/07/2024 5:17 AM CDT) [facility] WBC 4.5 3.8 - 9.9 K/cumm Hgb 10.7(L) 11.9 - 15.5 g/dL [facility] Hct 31.3(L) 35.6 - 45.5 % [facility] Plt 100(L) 150 - 400 K/cumm [facility] MPV 11.8 9.1 - 12.3 fL [facility] RBC 2.96(L) 3.90 - 5.20 M/cumm [facility] MCV 105.7(H) 81.3 - 96.4 fL [facility] MCH 36.1(H) 27.1 - 33.3 pg [facility] MCHC 34.2 32.3 - 35.7 g/dL [facility] RDW CV 14.2 11.1 - 14.9 % [facility] RDW SD 53.7(H) 35.7 - 48.1 fL [facility] NRBC abs 0.00 0.00 - 0.01 K/cumm [facility] Blood 06/07/2024 5:17 AM CDT 06/07/2024 6:14 AM CDT us Martha Butterfield MD LAB BLOOD ORDERABLES F inal Result [facility] Department [place] [address] * (ABNORMAL) Renal function panel (06/07/2024 5:17 AM CDT) Sodium 137 135 - 145 mmol/L Potassium, pl 4.9 3.3 - 4.9 mmol/L [facility] Chloride 108 97 - 110 mmol/L [facility] CO2 21(L) 22 - 32 mmol/L [facility] Anion gap 8 2 - 15 mmol/L [facility] BUN 28(H) 6 - 25 mg/dL [facility] Creatinine 1.92(H) 0.60 - 1.10 mg/dL [facility] Glucose 125 70 - 199 mg/dL [facility] Comment: Interpretive Data Fasting glucose >/= 126 [...] 2022. Calcium 8.1(L) 8.5 - 10.3 mg/dL [facility] Phosphorus, pl 3.8 2.3 - 4.5 mg/dL [facility] Albumin 3.4(L) 3.5 - 5.0 g/dL [facility] Blood 06/07/2024 5:17 AM CDT 06/07/2024 6:13 AM CDT Patricia Davidson MD PhD LAB BLOOD ORDERABLES Final Result [facility] Department [place] [address] * Potassium, whole blood (06/06/2024 11:29 AM CDT) Pathologist [facility] Potassium, bld 4.9 3.3 - 4.9 mmol/L Blood 06/06/2024 11:2 9 AM CDT 06/06/2024 12:20 PM CDT Martha Butterfield MD LAB BLOOD ORDERABLES F inal Result Performing Organization Address City/[facility]/ZIP Co de Phone Number [facility] Department [place] [address] * (ABNORMAL) eGFR (06/06/2024 4:28 AM CDT) [...] 4:28 AM CDT 06/06/2024 5:36 AM CDT Patricia Davidson MD PhD LAB BLOOD ORDERABLES Final Result Performing Organization Address [facility] Co de Phone Number [facility] [employer] [place] [address] * Tacrolimus level trough (06/06/2024 4:28 AM CDT) Pathologist [facility] Tacrolimus trough 5.9 ng/mL Comment: Interpretive Data Testing performed by liquid chromatography-tandem mass spectrometry. Therapeutic concentrations vary depending on type of transplanted organ and time elapsed since transplant. Typical trough concentrations range from 5-15 ng/mL. This test was developed and its performance characteristics determined by the [facility] consistent with CLIA requirements. This test has not been cleared or approved by the US Food and Drug administration. Current interpretive data last reviewed 2019. Blood 06/06/2024 4:28 AM CDT 06/06/2024 5:44 AM CDT Patricia Davidson MD PhD LAB BLOOD ORDERABLES Final Result Performing Organization Address City/[facility]/ZIP Co de Phone Number [facility] [employer] [address] * (ABNORMAL) Renal function panel (06/06/2024 4:28 AM CDT) Sodium 143 135 - 145 mmol/L Potassium, pl 5.3(H) 3.3 - 4.9 mmol/L [facility] Chloride 113(H) 97 - 110 mmol/L [facility] CO2 23 22 - 32 mmol/L [facility] Anion gap 7 2 - 15 mmol/L [facility] BUN 30(H) 6 - 25 mg/dL [facility] Creatinine 1.99(H) 0.60 - 1.10 mg/dL [facility] Glucose 86 70 - 199 mg/dL [facility] Comment: Interpretive Data Fasting glucose >/= 126 [...] 2022. Calcium 8.5 8.5 - 10.3 mg/dL [facility] Phosphorus, pl 4.1 2.3 - 4.5 mg/dL [facility] Albumin 3.1(L) 3.5 - 5.0 g/dL [facility] Blood 06/06/2024 4:28 AM CDT 06/06/2024 5:36 AM CDT us Patricia Davidson MD PhD LAB BLOOD ORDERABLES Final Result [facility] [place] [address] * (ABNORMAL) eGFR (06/05/2024 5:49 AM CDT) [...] MD PhD LAB BLOOD ORDERABLES Final Result [facility] [place] [address] * Differential, auto (06/05/2024 5:49 AM CDT) Pathologist [facility] Neutrophil abs 2.5 1.5 - 6.5 K/cumm Imm gran abs 0.0 0.0 - 0.1 K/cumm [facility] Lymphocyte abs 1.0 0.8 - 3.3 K/cumm [facility] Monocyte abs 0.4 0.2 - 0.8 K/cumm [facility] Eosinophil abs 0.1 0.0 - 0.5 K/cumm [facility] Basophil abs 0.0 0.0 - 0.1 K/cumm [facility] Neutrophil pct 62.5 % [facility] Comment: Interpretive Data Percent cell count reference ranges are not reported, since discordance with absolute values may lead to misinterpretation of CBC data. Current Interpretive Data was last revised on 2017. Imm gran pct 0.3 % [facility] Comment: Interpretive Data Percent cell count reference ranges are not reported, since discordance with absolute values may lead to misinterpretation of CBC data. Current Interpretive Data was last revised on 2017. Lymphocyte pct 24.3 % [facility] Comment: Interpretive Data Percent cell count reference ranges are not reported, since discordance with absolute values may lead to misinterpretation of CBC data. Current Interpretive Data was last revised on 2017. Monocyte pct 9.3 % [facility] Comment: Interpretive Data Percent cell count reference ranges are not reported, since discordance with absolute values may lead to misinterpretation of CBC data. Current Interpretive Data was last revised on 2017. Eosinophil pct 3.3 % [facility] Comment: Interpretive Data Percent cell count reference ranges are not reported, since discordance with absolute values may lead to misinterpretation of CBC data. Current Interpretive Data was last revised on 2017. Basophil pct 0.3 % [facility] Comment: Interpretive Data Percent cell count reference ranges are not reported, since discordance with absolute values may lead to misinterpretation of CBC data. Current Interpretive Data was last revised on 2017. Blood 06/05/2024 5:49 AM CDT 06/05/2024 6:48 AM CDT Patricia Davidson MD PhD LAB BLOOD ORDERABLES Final Result Performing Organization Address [facility] de Phone Number [facility] Department of [place] [address] * Tacrolimus level trough (06/05/2024 5:49 AM CDT) [facility] Tacrolimus trough 5.9 ng/mL Comment: Interpretive Data Testing performed by liquid chromatography-tandem mass spectrometry. Therapeutic concentrations vary depending on type of transplanted organ and time elapsed since transplant. Typical trough concentrations range from 5-15 ng/mL. This test was developed and its performance characteristics determined by the [facility] consistent with CLIA requirements. This test has not been cleared or approved by the US Food and Drug administration. Current interpretive data last reviewed 2019. Blood 06/05/2024 5:49 AM CDT 06/05/2024 6:48 AM CDT Patricia Davidson MD PhD LAB BLOOD ORDERABLES Final Result Performing Organization Address [facility] [place]/ZIP Co de Phone Number [facility] Department [place] [address] * (ABNORMAL) CBC with auto differential (06/05/2024 5:49 AM CDT) [facility] WBC 4.0 3.8 - 9.9 K/cumm Hgb 10.9(L) 11.9 - 15.5 g/dL [facility] Hct 31.7(L) 35.6 - 45.5 % [facility] Plt 102(L) 150 - 400 K/cumm [facility] MPV 11.6 9.1 - 12.3 fL [facility] RBC 3.05(L) 3.90 - 5.20 M/cumm [facility] MCV 103.9(H) 81.3 - 96.4 fL [facility] MCH 35.7(H) 27.1 - 33.3 pg [facility] MCHC 34.4 32.3 - 35.7 g/dL [facility] RDW CV 14.0 11.1 - 14.9 % [facility] RDW SD 52.3(H) 35.7 - 48.1 fL [facility] NRBC abs 0.00 0.00 - 0.01 K/cumm [facility] Blood 06/05/2024 5:49 AM CDT 06/05/2024 6:48 AM CDT us Patricia Davidson MD PhD LAB BLOOD ORDERABLES Final Result [facility] Department [place] [address] * (ABNORMAL) Renal function panel (06/05/2024 5:49 AM CDT) [facility] Sodium 140 135 - 145 mmol/L Potassium, pl 4.6 3.3 - 4.9 mmol/L [facility] Chloride 109 97 - 110 mmol/L [facility] CO2 22 22 - 32 mmol/L [facility] Anion gap 9 2 - 15 mmol/L [facility] BUN 29(H) 6 - 25 mg/dL [facility] Creatinine 1.99(H) 0.60 - 1.10 mg/dL [facility] Glucose 98 70 - 199 mg/dL [facility] Comment: Interpretive Data Fasting glucose >/= 126 [...] 2022. Calcium 8.6 8.5 - 10.3 mg/dL [facility] Phosphorus, pl 4.3 2.3 - 4.5 mg/dL [facility] Albumin 3.5 3.5 - 5.0 g/dL [facility] Blood 06/05/2024 5:49 AM CDT 06/05/2024 6:48 AM CDT us Patricia Davidson MD PhD LAB BLOOD ORDERABLES Final Result [facility] Department [place] [address] * ECG 12 lead (06/04/2024 5:41 AM CDT) Ventricular Rate EKG/Min 67 BPM [facility] Atrial Rate 67 BPM [facility] DE-Interval (MSEC) 202 ms [facility] QRS-Interval (MSEC) 74 ms [facility] QT-Interval (MSEC) 426 ms [facility] QTc 450 ms [facility] P [place] 5 degrees [facility] R [place] -19 degrees [facility] T [place] 53 degrees [facility] Diagnosis Normal sinus rhythm 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 73 [...] BLOOD ORDERABLES Final Result Performing Organization Address City/[facility]/ZIP Co de Phone Number [facility] Department [place] [address] * Differential, auto (06/04/2024 5:10 AM CDT) Neutrophil abs 3.1 1.5 - 6.5 K/cumm Imm gran abs 0.0 0.0 - 0.1 K/cumm [facility] Lymphocyte abs 1.3 0.8 - 3.3 K/cumm [facility] Monocyte abs 0.5 0.2 - 0.8 K/cumm [facility] Eosinophil abs 0.2 0.0 - 0.5 K/cumm [facility] Basophil abs 0.0 0.0 - 0.1 K/cumm [facility] Neutrophil pct 61.7 % [facility] Comment: Interpretive Data Percent cell count reference ranges are not reported, since discordance with absolute values may lead to misinterpretation of CBC data. Current Interpretive Data was last revised on 2017. Imm gran pct 0.4 % [facility] Comment: Interpretive Data Percent cell count reference ranges are not reported, since discordance with absolute values may lead to misinterpretation of CBC data. Current Interpretive Data was last revised on 2017. Lymphocyte pct 25.2 % [facility] Comment: Interpretive Data Percent cell count reference ranges are not reported, since discordance with absolute values may lead to misinterpretation of CBC data. Current Interpretive Data was last revised on 2017. Monocyte pct 9.1 % [facility] Comment: Interpretive Data Percent cell count reference ranges are not reported, since discordance with absolute values may lead to misinterpretation of CBC data. Current Interpretive Data was last revised on 2017. Eosinophil pct 3.0 % [facility] Comment: Interpretive Data Percent cell count reference ranges are not reported, since discordance with absolute values may lead to misinterpretation of CBC data. Current Interpretive Data was last revised on 2017. Basophil pct 0.6 % [facility] Comment: Interpretive Data Percent cell count reference ranges are not reported, since discordance with absolute values may lead to misinterpretation of CBC data. Current Interpretive Data was last revised on 2017. Blood 06/04/2024 5:10 AM CDT 06/04/2024 6:22 AM CDT us Patricia Davidson MD PhD LAB BLOOD ORDERABLES Final Result [facility] [place] [address] * Tacrolimus level trough (06/04/2024 5:10 AM CDT) [facility] Tacrolimus trough 6.1 ng/mL Comment: Interpretive Data Testing performed by liquid chromatography-tandem mass spectrometry. Therapeutic concentrations vary depending on type of transplanted organ and time elapsed since transplant. Typical trough concentrations range from 5-15 ng/mL. This test was developed and its performance characteristics determined by the [facility] consistent with CLIA requirements. This test has not been cleared or approved by the US Food and Drug administration. Current interpretive data last reviewed 2019. Blood 06/04/2024 5:10 AM CDT 06/04/2024 6:22 AM CDT Patricia Davidson MD PhD LAB BLOOD ORDERABLES Final Result [facility] Department [place] [address] * (ABNORMAL) CBC with auto differential (06/04/2024 5:10 AM CDT) [facility] WBC 5.0 3.8 - 9.9 K/cumm Hgb 11.2(L) 11.9 - 15.5 g/dL [facility] Hct 32.3(L) 35.6 - 45.5 % [facility] Plt 102(L) 150 - 400 K/cumm [facility] MPV 11.6 9.1 - 12.3 fL [facility] RBC 3.13(L) 3.90 - 5.20 M/cumm [facility] MCV 103.2(H) 81.3 - 96.4 fL [facility] MCH 35.8(H) 27.1 - 33.3 pg [facility] MCHC 34.7 32.3 - 35.7 g/dL [facility] RDW CV 13.7 11.1 - 14.9 % [facility] RDW SD 51.2(H) 35.7 - 48.1 fL [facility] NRBC abs 0.00 0.00 - 0.01 K/cumm [facility] Blood 06/04/2024 5:10 AM CDT 06/04/2024 6:22 AM CDT us Patricia Davidson MD PhD LAB BLOOD ORDERABLES Final Result [facility] Department [place] [address] * (ABNORMAL) Renal function panel (06/04/2024 5:10 AM CDT) Pathologist [facility] Sodium 144 135 - 145 mmol/L Potassium, pl 4.8 3.3 - 4.9 mmol/L [facility] Chloride 112(H) 97 - 110 mmol/L [facility] CO2 23 22 - 32 mmol/L [facility] Anion gap 9 2 - 15 mmol/L [facility] BUN 25 6 - 25 mg/dL [facility] Creatinine 1.98(H) 0.60 - 1.10 mg/dL [facility] Glucose 81 70 - 199 mg/dL [facility] Comment: Interpretive Data Fasting glucose >/= 126 [...] 2022. Calcium 8.9 8.5 - 10.3 mg/dL [facility] Phosphorus, pl 4.3 2.3 - 4.5 mg/dL [facility] Albumin 3.4(L) 3.5 - 5.0 g/dL [facility] Blood 06/04/2024 5:10 AM CDT 06/04/2024 6:23 AM CDT Patricia Davidson MD PhD LAB BLOOD ORDERABLES Final Result Performing Organization Address City/State/[facility] Co de Phone Number [facility] [place] [address] * Folate (06/04/2024 12:39 AM CDT) [facility] Folic acid See Comment >=5.0 ng/mL Comment: Credited; Hemolyzed Specimen Telephone report made to: Luz Maria Iyer RN on 06/04/2024 08:49:44 CDT by SAUD . Blood 06/04/2024 12:3 9 AM CDT 06/04/2024 1:24 AM CDT us Shea Babcock MD LAB BLOOD ORDERABLE S Final Result Performing Organization Address [facility] [place]/[facility] Co de Phone Number [facility] [place] [address] * Protein / creatinine ratio, urine, random (06/03/2024 6:15 PM CDT) [facility] Protein, ur, quant <5.0 mg/dL Comment: Interpretive Data No reference range established. Current interpretive data was last revised 2018. Creatinine Ur 39.1 mg/dL [facility] Comment: Interpretive Data No reference range established. Current interpretive data was last revised 2018. Protein/creatinin e ratio <127.9 0.0 - 180.0 mg/g CR [facility] Urine 06/03/2024 6:15 PM CDT 06/03/2024 7:42 PM CDT us Pineda Barrios MD LAB URINE ORDXavier RABVERONICA Final Result Performing Organization Address [facility] [place]/[facility] Co de Phone Number [facility] [place] [address] * (ABNORMAL) eGFR (06/03/2024 8:54 AM CDT) eGFR 33(L) >=60 mL/min/1. 73 m2 Comment: [...] MD PhD LAB BLOOD ORDERABLES Final Result [facility] [place] [address] * Differential, auto (06/03/2024 8:54 AM CDT) Pathologist [facility] Neutrophil abs 2.8 1.5 - 6.5 K/cumm Imm gran abs 0.0 0.0 - 0.1 K/cumm [facility] Lymphocyte abs 1.3 0.8 - 3.3 K/cumm [facility] Monocyte abs 0.4 0.2 - 0.8 K/cumm [facility] Eosinophil abs 0.2 0.0 - 0.5 K/cumm [facility] Basophil abs 0.0 0.0 - 0.1 K/cumm [facility] Neutrophil pct 59.1 % [facility] Comment: Interpretive Data Percent cell count reference ranges are not reported, since discordance with absolute values may lead to misinterpretation of CBC data. Current Interpretive Data was last revised on 2017. Imm gran pct 0.4 % [facility] Comment: Interpretive Data Percent cell count reference ranges are not reported, since discordance with absolute values may lead to misinterpretation of CBC data. Current Interpretive Data was last revised on 2017. Lymphocyte pct 27.4 % [facility] Comment: Interpretive Data Percent cell count reference ranges are not reported, since discordance with absolute values may lead to misinterpretation of CBC data. Current Interpretive Data was last revised on 2017. Monocyte pct 9.1 % [facility] Comment: Interpretive Data Percent cell count reference ranges are not reported, since discordance with absolute values may lead to misinterpretation of CBC data. Current Interpretive Data was last revised on 2017. Eosinophil pct 3.8 % [facility] Comment: Interpretive Data Percent cell count reference ranges are not reported, since discordance with absolute values may lead to misinterpretation of CBC data. Current Interpretive Data was last revised on 2017. Basophil pct 0.2 % [facility] Comment: Interpretive Data Percent cell count reference ranges are not reported, since discordance with absolute values may lead to misinterpretation of CBC data. Current Interpretive Data was last revised on 2017. Blood 06/03/2024 8:54 AM CDT 06/03/2024 9:23 AM CDT us Patricia Davidson MD PhD LAB BLOOD ORDERABLES Final Result [facility] Department [place] [address] * Tacrolimus level trough (06/03/2024 8:54 AM CDT) Tacrolimus trough 4.9 ng/mL Comment: Interpretive Data Testing performed by liquid chromatography-tandem mass spectrometry. Therapeutic concentrations vary depending on type of transplanted organ and time elapsed since transplant. Typical trough concentrations range from 5-15 ng/mL. This test was developed and its performance characteristics determined by the [facility] consistent with CLIA requirements. This test has not been cleared or approved by the US Food and Drug administration. Current interpretive data last reviewed 2019. Blood 06/03/2024 8:54 AM CDT 06/03/2024 9:22 AM CDT Patricia Davidson MD PhD LAB BLOOD ORDERABLES Final Result Performing Organization Address [facility] [place]/[facility] Co de Phone Number [facility] [place] [address] * (ABNORMAL) CBC with auto differential (06/03/2024 8:54 AM CDT) WBC 4.7 3.8 - 9.9 K/cumm Hgb 11.6(L) 11.9 - 15.5 g/dL [facility] Hct 32.6(L) 35.6 - 45.5 % [facility] Plt 121(L) 150 - 400 K/cumm [facility] MPV 11.0 9.1 - 12.3 fL [facility] RBC 3.19(L) 3.90 - 5.20 M/cumm [facility] MCV 102.2(H) 81.3 - 96.4 fL [facility] MCH 36.4(H) 27.1 - 33.3 pg [facility] MCHC 35.6 32.3 - 35.7 g/dL [facility] RDW CV 13.5 11.1 - 14.9 % [facility] RDW SD 49.6(H) 35.7 - 48.1 fL [facility] NRBC abs 0.00 0.00 - 0.01 K/cumm [facility] Blood 06/03/2024 8:54 AM CDT 06/03/2024 9:23 AM CDT us Patricia Davidson MD PhD LAB BLOOD ORDERABLES Final Result Performing Organization Address [facility] [place]/[facility] Co de Phone Number [facility] Department [place] [address] * CRP (acute phase) (06/03/2024 8:54 AM CDT) CRP 6.5 <=10.0 mg/L Blood 06/03/2024 8:54 AM CDT 06/03/2024 9:25 AM CDT Pineda Barrios MD LAB BLOOD ORDE COURTNEY Final Result [facility] Department [place] [address] * (ABNORMAL) Renal function panel (06/03/2024 8:54 AM CDT) Pathologist [facility] Sodium 143 135 - 145 mmol/L Potassium, pl 4.6 3.3 - 4.9 mmol/L [facility] Chloride 110 97 - 110 mmol/L [facility] CO2 23 22 - 32 mmol/L [facility] Anion gap 10 2 - 15 mmol/L [facility] BUN 21 6 - 25 mg/dL [facility] Creatinine 1.93(H) 0.60 - 1.10 mg/dL [facility] Glucose 125 70 - 199 mg/dL [facility] Comment: Interpretive Data Fasting glucose >/= 126 [...] 2022. Calcium 9.1 8.5 - 10.3 mg/dL [facility] Phosphorus, pl 3.5 2.3 - 4.5 mg/dL [facility] Albumin 3.5 3.5 - 5.0 g/dL [facility] Blood 06/03/2024 8:54 AM CDT 06/03/2024 9:25 AM CDT us Patricia Davidson MD PhD LAB BLOOD ORDERABLES Final Result [facility] [place] [address] * (ABNORMAL) eGFR (06/03/2024 2:22 AM CDT) Pathologist [facility] eGFR 34(L) >=60 mL/min/1. 73 m2 Comment: [...] MD LAB BLOOD ORDE RABLES Final Result [facility] [place] [address] * Differential, auto (06/03/2024 2:22 AM CDT) Pathologist [facility] Neutrophil abs 2.5 1.5 - 6.5 K/cumm Imm gran abs 0.0 0.0 - 0.1 K/cumm [facility] Lymphocyte abs 1.2 0.8 - 3.3 K/cumm [facility] Monocyte abs 0.4 0.2 - 0.8 K/cumm [facility] Eosinophil abs 0.1 0.0 - 0.5 K/cumm [facility] Basophil abs 0.0 0.0 - 0.1 K/cumm [facility] Neutrophil pct 58.3 % [facility] Comment: Interpretive Data Percent cell count reference ranges are not reported, since discordance with absolute values may lead to misinterpretation of CBC data. Current Interpretive Data was last revised on 2017. Imm gran pct 0.5 % [facility] Comment: Interpretive Data Percent cell count reference ranges are not reported, since discordance with absolute values may lead to misinterpretation of CBC data. Current Interpretive Data was last revised on 2017. Lymphocyte pct 28.7 % [facility] Comment: Interpretive Data Percent cell count reference ranges are not reported, since discordance with absolute values may lead to misinterpretation of CBC data. Current Interpretive Data was last revised on 2017. Monocyte pct 9.2 % [facility] Comment: Interpretive Data Percent cell count reference ranges are not reported, since discordance with absolute values may lead to misinterpretation of CBC data. Current Interpretive Data was last revised on 2017. Eosinophil pct 3.1 % [facility] Comment: Interpretive Data Percent cell count reference ranges are not reported, since discordance with absolute values may lead to misinterpretation of CBC data. Current Interpretive Data was last revised on 2017. Basophil pct 0.2 % [facility] Comment: Interpretive Data Percent cell count reference ranges are not reported, since discordance with absolute values may lead to misinterpretation of CBC data. Current Interpretive Data was last revised on 2017. Blood 06/03/2024 2:22 AM CDT 06/03/2024 2:57 AM CDT Pineda Barrios MD LAB BLOOD ORDXavier VALDEZ Final Result [facility] Department [place] [address] * (ABNORMAL) Iron profile w/ IBC (06/03/2024 2:22 AM CDT) Iron 104 35 - 145 mcg/dL TIBC 192(L) 250 - 400 mcg/dL [facility] Transferrin saturation 54(H) 20 - 50 % [facility] Blood 06/03/2024 2:22 AM CDT 06/03/2024 2:57 AM CDT us Shae Babcock MD LAB BLOOD ORDERABLE S Final Result [facility] Department [place] [address] * (ABNORMAL) CBC with auto differential (06/03/2024 2:22 AM CDT) Pathologist [facility] WBC 4.2 3.8 - 9.9 K/cumm Hgb 11.5(L) 11.9 - 15.5 g/dL [facility] Hct 32.9(L) 35.6 - 45.5 % [facility] Plt 120(L) 150 - 400 K/cumm [facility] MPV 11.2 9.1 - 12.3 fL [facility] RBC 3.24(L) 3.90 - 5.20 M/cumm [facility] MCV 101.5(H) 81.3 - 96.4 fL [facility] MCH 35.5(H) 27.1 - 33.3 pg [facility] MCHC 35.0 32.3 - 35.7 g/dL [facility] RDW CV 13.4 11.1 - 14.9 % [facility] RDW SD 49.9(H) 35.7 - 48.1 fL [facility] NRBC abs 0.00 0.00 - 0.01 K/cumm [facility] Blood 06/03/2024 2:22 AM CDT 06/03/2024 2:57 AM CDT us Pindea Barrios MD LAB BLOOD RICO VALDEZ Final Result [facility] Department [place] [address] * Tacrolimus level random (06/03/2024 2:22 AM CDT) Tacrolimus random 6.3 ng/mL Comment: Interpretive Data Testing performed by liquid chromatography-tandem mass spectrometry. Therapeutic concentrations vary depending on type of transplanted organ and time elapsed since transplant. Typical trough concentrations range from 5-15 ng/mL. This test was developed and its performance characteristics determined by the [facility] consistent with CLIA requirements. This test has not been cleared or approved by the [place] Food and Drug administration. Current interpretive data last reviewed 2019. Blood 06/03/2024 2:22 AM CDT 06/03/2024 2:57 AM CDT us Pineda Barrios MD LAB BLOOD RICO VALDEZ Final Result [facility] Department [place] [address] * TSH (06/03/2024 2:22 AM CDT) Thyroid Stimulating Hormone 1.91 0.30 - 4.20 mcIUnit/mL Blood 06/03/2024 2:22 AM CDT 06/03/2024 2:57 AM CDT us Shea Babcock MD LAB BLOOD ORDERABLE S Final Result [facility] [place] [address] * (ABNORMAL) Ferritin (06/03/2024 2:22 AM CDT) Ferritin 213(H) 13 - 150 ng/mL Blood 06/03/2024 2:22 AM CDT 06/03/2024 2:57 AM CDT us Shea Babcock MD LAB BLOOD ORDERABLE S Final Result Performing Organization Address City/[facility]/ZIP Co de Phone Number [facility] Department [place] [address] * Vitamin B12 (06/03/2024 2:22 AM CDT) Pathologist [facility] Vitamin B12 749 230 - 1,250 pg/mL Blood 06/03/2024 2:22 AM CDT 06/03/2024 2:57 AM CDT Shea Babcock MD LAB BLOOD ORDERABLE S Final Result Performing Organization Address [facility] de Phone Number [facility] Department [place] [address] * (ABNORMAL) Renal function panel (06/03/2024 2:22 AM CDT) Pathologist [facility] Sodium 144 135 - 145 mmol/L Potassium, pl 5.0(H) 3.3 - 4.9 mmol/L [facility] Chloride 111(H) 97 - 110 mmol/L [facility] CO2 25 22 - 32 mmol/L [facility] Anion gap 8 2 - 15 mmol/L [facility] BUN 23 6 - 25 mg/dL [facility] Creatinine 1.86(H) 0.60 - 1.10 mg/dL [facility] Glucose 102 70 - 199 mg/dL [facility] Comment: Interpretive Data Fasting glucose >/= 126 [...] 2022. Calcium 9.2 8.5 - 10.3 mg/dL [facility] Phosphorus, pl 3.1 2.3 - 4.5 mg/dL [facility] Albumin 3.8 3.5 - 5.0 g/dL [facility] Blood 06/03/2024 2:22 AM CDT 06/03/2024 2:57 AM CDT Pineda Barrios MD LAB BLOOD ORDE RABLES Final Result [facility] Department [place] [address] * (ABNORMAL) eGFR (06/02/2024 8:43 AM CDT) eGFR 33(L) >=60 mL/min/1. 73 m2 Comment: [...] MD PhD LAB BLOOD ORDERABLES Final Result [facility] Department [place] [address] * Differential, auto (06/02/2024 8:43 AM CDT) Neutrophil abs 2.3 1.5 - 6.5 K/cumm Imm gran abs 0.0 0.0 - 0.1 K/cumm [facility] Lymphocyte abs 1.3 0.8 - 3.3 K/cumm [facility] Monocyte abs 0.4 0.2 - 0.8 K/cumm [facility] Eosinophil abs 0.1 0.0 - 0.5 K/cumm [facility] Basophil abs 0.0 0.0 - 0.1 K/cumm [facility] Neutrophil pct 55.6 % [facility] Comment: Interpretive Data Percent cell count reference ranges are not reported, since discordance with absolute values may lead to misinterpretation of CBC data. Current Interpretive Data was last revised on 2017. Imm gran pct 0.2 % [facility] Comment: Interpretive Data Percent cell count reference ranges are not reported, since discordance with absolute values may lead to misinterpretation of CBC data. Current Interpretive Data was last revised on 2017. Lymphocyte pct 30.7 % [facility] Comment: Interpretive Data Percent cell count reference ranges are not reported, since discordance with absolute values may lead to misinterpretation of CBC data. Current Interpretive Data was last revised on 2017. Monocyte pct 10.1 % [facility] Comment: Interpretive Data Percent cell count reference ranges are not reported, since discordance with absolute values may lead to misinterpretation of CBC data. Current Interpretive Data was last revised on 2017. Eosinophil pct 3.2 % [facility] Comment: Interpretive Data Percent cell count reference ranges are not reported, since discordance with absolute values may lead to misinterpretation of CBC data. Current Interpretive Data was last revised on 2017. Basophil pct 0.2 % [facility] Comment: Interpretive Data Percent cell count reference ranges are not reported, since discordance with absolute values may lead to misinterpretation of CBC data. Current Interpretive Data was last revised on 2017. Blood 06/02/2024 8:43 AM CDT 06/02/2024 9:14 AM CDT Patricia Davidson MD PhD LAB BLOOD ORDERABLES Final Result Performing Organization Address [facility] de Phone Number [facility] Department [place] [address] * Tacrolimus level trough (06/02/2024 8:43 AM CDT) [facility] Tacrolimus trough 3.8 ng/mL Comment: Interpretive Data Testing performed by liquid chromatography-tandem mass spectrometry. Therapeutic concentrations vary depending on type of transplanted organ and time elapsed since transplant. Typical trough concentrations range from 5-15 ng/mL. This test was developed and its performance characteristics determined by the [facility] consistent with CLIA requirements. This test has not been cleared or approved by the US Food and Drug administration. Current interpretive data last reviewed 2019. Blood 06/02/2024 8:43 AM CDT 06/02/2024 9:14 AM CDT Patricia Davidson MD PhD LAB BLOOD ORDERABLES Final Result Performing Organization Address [facility] [place]/[facility] de Phone Number [facility] [place] [address] * (ABNORMAL) CBC with auto differential (06/02/2024 8:43 AM CDT) [facility] WBC 4.1 3.8 - 9.9 K/cumm Hgb 10.8(L) 11.9 - 15.5 g/dL [facility] Hct 30.5(L) 35.6 - 45.5 % [facility] Plt 105(L) 150 - 400 K/cumm [facility] MPV 11.6 9.1 - 12.3 fL [facility] RBC 3.03(L) 3.90 - 5.20 M/cumm [facility] MCV 100.7(H) 81.3 - 96.4 fL [facility] MCH 35.6(H) 27.1 - 33.3 pg [facility] MCHC 35.4 32.3 - 35.7 g/dL [facility] RDW CV 13.3 11.1 - 14.9 % [facility] RDW SD 48.2(H) 35.7 - 48.1 fL [facility] NRBC abs 0.00 0.00 - 0.01 K/cumm [facility] Blood 06/02/2024 8:43 AM CDT 06/02/2024 9:14 AM CDT us Patricia Davidson MD PhD LAB BLOOD ORDERABLES Final Result [facility] Department [place] [address] * (ABNORMAL) Renal function panel (06/02/2024 8:43 AM CDT) Sodium 143 135 - 145 mmol/L Potassium, pl 5.1(H) 3.3 - 4.9 mmol/L [facility] Comment:Hemolyzed; Potassium value may be falsely elevated by as much as 0.3-0.5 mmol/L. Suggest redraw and reanalysis. Chloride 111(H) 97 - 110 mmol/L [facility] CO2 26 22 - 32 mmol/L [facility] Anion gap 6 2 - 15 mmol/L [facility] BUN 22 6 - 25 mg/dL [facility] Creatinine 1.93(H) 0.60 - 1.10 mg/dL [facility] Glucose 108 70 - 199 mg/dL [facility] Comment: Interpretive Data Fasting glucose >/= 126 [...] 2022. Calcium 8.8 8.5 - 10.3 mg/dL [facility] Phosphorus, pl 3.5 2.3 - 4.5 mg/dL [facility] Albumin 3.4(L) 3.5 - 5.0 g/dL [facility] Blood 06/02/2024 8:43 AM CDT 06/02/2024 9:14 AM CDT us Patricia Davidson MD PhD LAB BLOOD ORDERABLES Final Result Performing Organization Address City/[facility]/ZIP Co de Phone Number [facility] Department [place] [address] * Immunoglobulin profile (06/01/2024 9:10 PM CDT) Pathologist [facility] Immunoglobulin G 882 700 - 1,600 mg/dL Immunoglobulin A 213 70 - 400 mg/dL [facility] Immunoglobulin M 92 40 - 230 mg/dL [facility] Blood 06/01/2024 9:10 PM CDT 06/01/2024 10:48 PM CDT Pineda Barrios MD LAB BLOOD ORDE RABLES Final Result Performing Organization Address City/[facility]/ZIP Co de Phone Number [facility] [place] [address] * Differential, auto (06/01/2024 10:03 AM CDT) Neutrophil abs 3.5 1.5 - 6.5 K/cumm Imm gran abs 0.0 0.0 - 0.1 K/cumm [facility] Lymphocyte abs 1.3 0.8 - 3.3 K/cumm [facility] Monocyte abs 0.4 0.2 - 0.8 K/cumm [facility] Eosinophil abs 0.2 0.0 - 0.5 K/cumm [facility] Basophil abs 0.0 0.0 - 0.1 K/cumm [facility] Neutrophil pct 65.5 % [facility] Comment: Interpretive Data Percent cell count reference ranges are not reported, since discordance with absolute values may lead to misinterpretation of CBC data. Current Interpretive Data was last revised on 2017. Imm gran pct 0.2 % [facility] Comment: Interpretive Data Percent cell count reference ranges are not reported, since discordance with absolute values may lead to misinterpretation of CBC data. Current Interpretive Data was last revised on 2017. Lymphocyte pct 23.6 % [facility] Comment: Interpretive Data Percent cell count reference ranges are not reported, since discordance with absolute values may lead to misinterpretation of CBC data. Current Interpretive Data was last revised on 2017. Monocyte pct 7.7 % [facility] Comment: Interpretive Data Percent cell count reference ranges are not reported, since discordance with absolute values may lead to misinterpretation of CBC data. Current Interpretive Data was last revised on 2017. Eosinophil pct 2.8 % [facility] Comment: Interpretive Data Percent cell count reference ranges are not reported, since discordance with absolute values may lead to misinterpretation of CBC data. Current Interpretive Data was last revised on 2017. Basophil pct 0.2 % [facility] Comment: Interpretive Data Percent cell count reference ranges are not reported, since discordance with absolute values may lead to misinterpretation of CBC data. Current Interpretive Data was last revised on 2017. Blood 06/01/2024 10:0 3 AM CDT 06/01/2024 10:19 AM CDT us Patricia Davidson MD PhD LAB BLOOD ORDERABLES Final Result [facility] Department of Laboratories [place], [place] [id number] * (ABNORMAL) CBC with auto differential (06/01/2024 10:03 AM CDT) WBC 5.3 3.8 - 9.9 K/cumm Hgb 12.1 11.9 - 15.5 g/dL [facility] Hct 34.0(L) 35.6 - 45.5 % [facility] Plt 98(L) 150 - 400 K/cumm [facility] MPV 11.6 9.1 - 12.3 fL [facility] RBC 3.44(L) 3.90 - 5.20 M/cumm [facility] MCV 98.8(H) 81.3 - 96.4 fL [facility] MCH 35.2(H) 27.1 - 33.3 pg [facility] MCHC 35.6 32.3 - 35.7 g/dL [facility] RDW CV 12.8 11.1 - 14.9 % [facility] RDW SD 45.8 35.7 - 48.1 fL [facility] NRBC abs 0.00 0.00 - 0.01 K/cumm [facility] Blood 06/01/2024 10:0 3 AM CDT 06/01/2024 10:19 AM CDT Patricia Davidson MD PhD LAB BLOOD ORDERABLES Final Result Performing Organization Address [facility] [place]/[facility] de Phone Number [facility] Department [place] [address] * Tacrolimus level trough (06/01/2024 9:20 AM CDT) [facility] Tacrolimus trough 6.5 ng/mL Comment: Interpretive Data Testing performed by liquid chromatography-tandem mass spectrometry. Therapeutic concentrations vary depending on type of transplanted organ and time elapsed since transplant. Typical trough concentrations range from 5-15 ng/mL. This test was developed and its performance characteristics determined by the [facility] consistent with CLIA requirements. This test has not been cleared or approved by the US Food and Drug administration. Current interpretive data last reviewed 2019. Blood 06/01/2024 9:20 AM CDT 06/01/2024 9:53 AM CDT us Patricia Davidson MD PhD LAB BLOOD ORDERABLES Final Result Performing Organization Address City/[facility] [place]/ZIP Co de Phone Number [facility] Department [place] [address] * (ABNORMAL) eGFR (06/01/2024 6:17 AM CDT) [...] MD PhD LAB BLOOD ORDERABLES Final Result [facility] Department [place] [address] * (ABNORMAL) Renal function panel (06/01/2024 6:17 AM CDT) Sodium 135 135 - 145 mmol/L Potassium, pl 4.5 3.3 - 4.9 mmol/L [facility] Chloride 103 97 - 110 mmol/L [facility] CO2 22 22 - 32 mmol/L [facility] Anion gap 10 2 - 15 mmol/L [facility] BUN 24 6 - 25 mg/dL [facility] Creatinine 2.15(H) 0.60 - 1.10 mg/dL [facility] Glucose 120 70 - 199 mg/dL [facility] Comment: Interpretive Data Fasting glucose >/= 126 [...] 2022. Calcium 8.7 8.5 - 10.3 mg/dL [facility] Phosphorus, pl 2.8 2.3 - 4.5 mg/dL [facility] Albumin 3.6 3.5 - 5.0 g/dL [facility] Blood 06/01/2024 6:17 AM CDT 06/01/2024 6:52 AM CDT us Patricia Davidson MD PhD LAB BLOOD ORDERABLES Final Result [facility] Department [place] [address] * TRANSTHORACIC ECHO (TTE) COMPLETE W DOPPLER/CF WO CONTRAST (05/31/2024 2:50 PM CDT) Anatomical Region Laterality Modality Ultrasound 05/31/2024 2:12 PM CDT Narrative 05/31/2024 3:36 PM CDT [facility] [place] [address] Transthoracic Echocardiographic Report Patient Name: MISHA BROWNE : 1980 (43y 7m) Gender: F Study Date: 05/31/2024 02:12:33 PM Ht(Inch): 63 Wt(Lb): 184.97 BSA: 1.93 Marketing Operations Analyst: Elisabeth Em RDCS Location: [id number] Order Provider: PINEDA HINOJOSA Heart Rate: 61 [...] trileaflet aortic valve. Mild aortic valve regurgitation (YDK=763 ms). The mean transaortic gradient is 4 [...] LA Length 4C 6.78 cm AI Decel Reagan 2.15 m/s2 LA Length 2C 6.66 cm [...] Procedure Note Stalin Krishna MD - 05/31/2024 [facility] [place] [address] Transthoracic Echocardiographic Report Patient Name: MISHA BROWNE : 1980 (43y 7m) Gender: F Study Date: 05/31/2024 02:12:33 PM Ht(Inch): 63 Wt(Lb): 184.97 BSA: 1.93 Marketing Operations Analyst: Elisabeth Em RDCS Location: [place] [address] Order Provider:PINEDA HINOJOSA Heart Rate: 61 BMI: [...] Normal trileaflet aortic valve. Mild aortic valve regurgitation(TCY=136 ms). The mean transaortic gradient is 4 [...] [ -25.0 - -18.0 ] AI Decel [id number] sec LA Length 4C 6.78 cm AI Decel Slope2.15 m/s2 LA Length 2C 6.66 cm AI [id number] msec LA Volume BP 83.77 ml MV [...] [ 1.71 - 5.00 ] MV Decel [id number] msec [ 104.00 - 258.00 ] RA [...] MD PhD LAB BLOOD ORDERABLES Final Result [facility] Department [place] [address] * Differential, auto (05/31/2024 4:55 AM CDT) Neutrophil abs 4.9 1.5 - 6.5 K/cumm Imm gran abs 0.0 0.0 - 0.1 K/cumm [facility] Lymphocyte abs 1.4 0.8 - 3.3 K/cumm [facility] Monocyte abs 0.6 0.2 - 0.8 K/cumm [facility] Eosinophil abs 0.1 0.0 - 0.5 K/cumm [facility] Basophil abs 0.0 0.0 - 0.1 K/cumm [facility] Neutrophil pct 69.8 % [facility] Comment: Interpretive Data Percent cell count reference ranges are not reported, since discordance with absolute values may lead to misinterpretation of CBC data. Current Interpretive Data was last revised on 2017. Imm gran pct 0.6 % [facility] Comment: Interpretive Data Percent cell count reference ranges are not reported, since discordance with absolute values may lead to misinterpretation of CBC data. Current Interpretive Data was last revised on 2017. Lymphocyte pct 19.7 % [facility] Comment: Interpretive Data Percent cell count reference ranges are not reported, since discordance with absolute values may lead to misinterpretation of CBC data. Current Interpretive Data was last revised on 2017. Monocyte pct 8.0 % [facility] Comment: Interpretive Data Percent cell count reference ranges are not reported, since discordance with absolute values may lead to misinterpretation of CBC data. Current Interpretive Data was last revised on 2017. Eosinophil pct 1.9 % [facility] Comment: Interpretive Data Percent cell count reference ranges are not reported, since discordance with absolute values may lead to misinterpretation of CBC data. Current Interpretive Data was last revised on 2017. Basophil pct 0.0 % [facility] Comment: Interpretive Data Percent cell count reference ranges are not reported, since discordance with absolute values may lead to misinterpretation of CBC data. Current Interpretive Data was last revised on 2017. Blood 05/31/2024 4:55 AM CDT 05/31/2024 5:49 AM CDT Patricia Davidson MD PhD LAB BLOOD ORDERABLES Final Result Performing Organization Address [facility] de Phone Number [facility] Department [place] [address] * Tacrolimus level trough (05/31/2024 4:55 AM CDT) [facility] Tacrolimus trough 9.2 ng/mL Comment: Interpretive Data Testing performed by liquid chromatography-tandem mass spectrometry. Therapeutic concentrations vary depending on type of transplanted organ and time elapsed since transplant. Typical trough concentrations range from 5-15 ng/mL. This test was developed and its performance characteristics determined by the [facility] consistent with CLIA requirements. This test has not been cleared or approved by the US Food and Drug administration. Current interpretive data last reviewed 2019. Blood 05/31/2024 4:55 AM CDT 05/31/2024 5:49 AM CDT Patricia Davidson MD PhD LAB BLOOD ORDERABLES Final Result Performing Organization Address City/[facility] [place]/[facility] Co de Phone Number [facility] Department [place] [address] * (ABNORMAL) CBC with auto differential (05/31/2024 4:55 AM CDT) [facility] WBC 7.0 3.8 - 9.9 K/cumm Hgb 11.2(L) 11.9 - 15.5 g/dL [facility] Hct 31.4(L) 35.6 - 45.5 % [facility] Plt 102(L) 150 - 400 K/cumm [facility] MPV 10.9 9.1 - 12.3 fL [facility] RBC 3.15(L) 3.90 - 5.20 M/cumm [facility] MCV 99.7(H) 81.3 - 96.4 fL [facility] MCH 35.6(H) 27.1 - 33.3 pg [facility] MCHC 35.7 32.3 - 35.7 g/dL [facility] RDW CV 12.9 11.1 - 14.9 % [facility] RDW SD 46.0 35.7 - 48.1 fL [facility] NRBC abs 0.00 0.00 - 0.01 K/cumm [facility] Blood 05/31/2024 4:55 AM CDT 05/31/2024 5:49 AM CDT us Patricia Davidson MD PhD LAB BLOOD ORDERABLES Final Result [facility] Department [place] [address] * (ABNORMAL) Renal function panel (05/31/2024 4:55 AM CDT) [facility] Sodium 136 135 - 145 mmol/L Potassium, pl 4.6 3.3 - 4.9 mmol/L [facility] Chloride 105 97 - 110 mmol/L [facility] CO2 23 22 - 32 mmol/L [facility] Anion gap 8 2 - 15 mmol/L [facility] BUN 30(H) 6 - 25 mg/dL [facility] Creatinine 2.90(H) 0.60 - 1.10 mg/dL [facility] Glucose 119 70 - 199 mg/dL [facility] Comment: Interpretive Data Fasting glucose >/= 126 [...] 2022. Calcium 8.4(L) 8.5 - 10.3 mg/dL [facility] Phosphorus, pl 3.2 2.3 - 4.5 mg/dL [facility] Albumin 3.6 3.5 - 5.0 g/dL [facility] Blood 05/31/2024 4:55 AM CDT 05/31/2024 5:48 AM CDT us Patricia Davidson MD PhD LAB BLOOD ORDERABLES Final Result Performing Organization Address City/[facility]/ZIP Co de Phone Number [facility] Department [place] [employer] [address] * Sodium, urine, random (05/30/2024 5:23 PM CDT) Sodium, ur <20 mmol/L Comment: Interpretive Data No reference range established. Current interpretive data was last revised 2018. Urine 05/30/2024 5:23 PM CDT 05/30/2024 5:59 PM CDT Pineda Barrios MD LAB URINE ORDE RABLES Final Result Performing Organization Address City/[facility]/ZIP Co de Phone Number [facility] Department [place] [address] * Creatinine, urine, random (05/30/2024 5:23 PM CDT) Pathologist [facility] Creatinine Ur 121.1 mg/dL Comment: Interpretive Data No reference range established. Current interpretive data was last revised 2018. Urine 05/30/2024 5:23 PM CDT 05/30/2024 5:59 PM CDT Result [facility] Pineda Barrios MD LAB URINE ORDE RABLES Final Result Performing Organization Address [facility] de Phone Number [facility] [place] [address] * BK virus PCR quantitative Blood (05/30/2024 4:44 AM CDT) [facility] BKV DNA result, pl Not Detected [facility] Comment: The quantifiable range of this assay is 21.5 IU/mL to 100,000,000 IU/mL (1.33 log IU/mL to 8.00 log IU/mL). Testing was performed by the GASTON 6800 BKV Quantatitive Test version 2.0 ([employer] Testing performed at [facility] Current Interpretive Data was last revised on 2021. Blood 05/30/2024 4:44 AM CDT 05/30/2024 5:55 AM CDT Result [facility] Patricia Davidson MD PhD LAB MICROBIOLOGY - GENERAL ORDERABLES Final Result Performing Organization Address [facility] Co de Phone Number [facility] Department [place] [address] [facility] * Collection Task for HLA Antibody Screen (05/30/2024 4:44 AM CDT) [facility] HLA Antibody Screen By Single Antigen Received Blood 05/30/2024 4:44 AM CDT 05/30/2024 9:01 AM CDT Result [facility] Patricia Davidson MD PhD LAB BLOOD ORDERABLES Final Result [facility] Department [place] [address] * Cytomegalovirus (CMV) DNA PCR, quantitative Blood (05/30/2024 4:44 AM CDT) CMV DNA Not Detected [facility] Comment: Interpretive Data: The quantifiable range of this assay is 34 IUnits/mL to 10,000,000 IUnits/mL (1.53 log IUnits/mL to 7.0 log IUnits/mL). Testing was performed by the GASTON 6800 CMV Test ([employer] Testing performed at [facility]. Current interpretive data was last revised on 2020. Blood 05/30/2024 4:44 AM CDT 05/30/2024 5:55 AM CDT Patricia Davidson MD PhD LAB MICROBIOLOGY - GENERAL ORDERABLES Final Result Performing Organization Address City/[facility]/ZIP Co de Phone Number [facility] Department [place] [address] [facility] * (ABNORMAL) eGFR (05/30/2024 4:44 AM CDT) eGFR 21(L) >=60 mL/min/1. 73 m2 Comment: [...] 4:44 AM CDT 05/30/2024 5:31 AM CDT us Patricia Davidson MD PhD LAB BLOOD ORDERABLES Final Result [facility] Department [place] [address] * Differential, auto (05/30/2024 4:44 AM CDT) Neutrophil abs 5.0 1.5 - 6.5 K/cumm Imm gran abs 0.0 0.0 - 0.1 K/cumm [facility] Lymphocyte abs 1.7 0.8 - 3.3 K/cumm [facility] Monocyte abs 0.5 0.2 - 0.8 K/cumm [facility] Eosinophil abs 0.1 0.0 - 0.5 K/cumm [facility] Basophil abs 0.0 0.0 - 0.1 K/cumm [facility] Neutrophil pct 68.2 % [facility] Comment: Interpretive Data Percent cell count reference ranges are not reported, since discordance with absolute values may lead to misinterpretation of CBC data. Current Interpretive Data was last revised on 2017. Imm gran pct 0.5 % [facility] Comment: Interpretive Data Percent cell count reference ranges are not reported, since discordance with absolute values may lead to misinterpretation of CBC data. Current Interpretive Data was last revised on 2017. Lymphocyte pct 22.6 % [facility] Comment: Interpretive Data Percent cell count reference ranges are not reported, since discordance with absolute values may lead to misinterpretation of CBC data. Current Interpretive Data was last revised on 2017. Monocyte pct 6.8 % [facility] Comment: Interpretive Data Percent cell count reference ranges are not reported, since discordance with absolute values may lead to misinterpretation of CBC data. Current Interpretive Data was last revised on 2017. Eosinophil pct 1.8 % [facility] Comment: Interpretive Data Percent cell count reference ranges are not reported, since discordance with absolute values may lead to misinterpretation of CBC data. Current Interpretive Data was last revised on 2017. Basophil pct 0.1 % [facility] Comment: Interpretive Data Percent cell count reference ranges are not reported, since discordance with absolute values may lead to misinterpretation of CBC data. Current Interpretive Data was last revised on 2017. Blood 05/30/2024 4:44 AM CDT 05/30/2024 5:30 AM CDT Result [facility] Patricia Davidson MD PhD LAB BLOOD ORDERABLES Final Result Performing Organization Address [facility] [place]/[facility] de Phone Number [facility] Department [place] [address] * Tacrolimus level trough (05/30/2024 4:44 AM CDT) [facility] Tacrolimus trough 16.5 ng/mL Comment: Interpretive Data Testing performed by liquid chromatography-tandem mass spectrometry. Therapeutic concentrations vary depending on type of transplanted organ and time elapsed since transplant. Typical trough concentrations range from 5-15 ng/mL. This test was developed and its performance characteristics determined by the [facility] consistent with CLIA requirements. This test has not been cleared or approved by the [place] Food and Drug administration. Current interpretive data last reviewed 2019. Blood 05/30/2024 4:44 AM CDT 05/30/2024 5:30 AM CDT Patricia Davidson MD PhD LAB BLOOD ORDERABLES Final Result Performing Organization Address [facility] [place]/[facility] Co de Phone Number [facility] Department [place] [address] * (ABNORMAL) CBC with auto differential (05/30/2024 4:44 AM CDT) [facility] WBC 7.4 3.8 - 9.9 K/cumm Hgb 12.0 11.9 - 15.5 g/dL [facility] Hct 33.9(L) 35.6 - 45.5 % [facility] Plt 130(L) 150 - 400 K/cumm [facility] MPV 10.8 9.1 - 12.3 fL [facility] RBC 3.40(L) 3.90 - 5.20 M/cumm [facility] MCV 99.7(H) 81.3 - 96.4 fL [facility] MCH 35.3(H) 27.1 - 33.3 pg [facility] MCHC 35.4 32.3 - 35.7 g/dL [facility] RDW CV 13.0 11.1 - 14.9 % [facility] RDW SD 47.4 35.7 - 48.1 fL [facility] NRBC abs 0.00 0.00 - 0.01 K/cumm [facility] Blood 05/30/2024 4:44 AM CDT 05/30/2024 5:30 AM CDT us Patricia Davidson MD PhD LAB BLOOD ORDERABLES Final Result [facility] One [facility] [facility] Department [place] [address] * (ABNORMAL) Renal function panel (05/30/2024 4:44 AM CDT) Sodium 142 135 - 145 mmol/L Potassium, pl 4.2 3.3 - 4.9 mmol/L [facility] Chloride 108 97 - 110 mmol/L [facility] CO2 25 22 - 32 mmol/L [facility] Anion gap 9 2 - 15 mmol/L [facility] BUN 23 6 - 25 mg/dL [facility] Creatinine 2.76(H) 0.60 - 1.10 mg/dL [facility] Glucose 123 70 - 199 mg/dL [facility] Comment: Interpretive Data Fasting glucose >/= 126 [...] 2022. Calcium 9.1 8.5 - 10.3 mg/dL [facility] Phosphorus, pl 3.6 2.3 - 4.5 mg/dL [facility] Albumin 3.8 3.5 - 5.0 g/dL [facility] Blood 05/30/2024 4:44 AM CDT 05/30/2024 5:31 AM CDT Patricia Davidson MD PhD LAB BLOOD ORDERABLES Final Result Performing Organization Address [facility] [place]/[facility] de Phone Number [facility] [place] [address] * HLA Donor Specific Antibody Report (05/30/2024 [...] Narrative [facility] - 05/31/2024 11:29 AM CDT Patricia Davidson MD PhD LAB BLOOD ORDERABLES Final Result Performing Organization Address [facility] [place]/[facility] Co de Phone Number [facility] * ECG 12 lead (05/30/2024 1:10 AM CDT) [facility] Signature Ventricular Rate EKG/Min 75 BPM [facility] Atrial Rate 75 BPM [facility] DE-Interval (MSEC) 160 ms [facility] QRS-Interval (MSEC) 82 ms [facility] QT-Interval (MSEC) 456 ms [facility] QTc 509 ms [facility] P [place] 31 degrees [facility] R [place] -9 degrees [facility] T [place] 44 degrees [facility] Diagnosis Normal sinus rhythm Poor r wave progression associated with abnormal lead placement, obesity, pulmonary disease, anterior infarction. Prolonged QT Abnormal ECG When compared with ECG of 20-APR-2020 11:02, QRS voltage has increased Confirmed by BRODIE LEIGH M.D ([id number]) on 05/30/2024 12:29:55 PM [facility] 05/30/2024 1:10 AM CDT 05/30/2024 12:29 PM CDT us Patricia Davidson MD PhD ECG ORDERABLES Final Resul t [facility] * US Renal Transplant W Dopplers (05/29/2024 [...] it. Electronically signed by: Ziyad Purdy M.D. us Jessee Mandel MD IMG US PROCEDURES Aniya l Result * Influenza A/B, RSV, and COVID-19 PCR Nasopharyngeal (05/29/2024 4:10 PM CDT) [facility] COVID-19 RNA Negative Negative [facility] Influenza A RNA Negative Negative [facility] Influenza B RNA Negative Negative [facility] RSV RNA Negative Negative [facility] Comment: Interpretive data: Testing performed by [facility] ([phone]). This test is performed using the trip.me Xpert Xpress CoV-2/Flu/RSV plus assay. This is a multiplex, real-time reverse transcriptase PCR assay intended for the qualitative detection of nucleic acid from SARS-CoV-2, influenza A, influenza B, and respiratory syncytial virus. This assay has been cleared by the [place] Food and Drug administration. The performance characteristics have been verified by the [facility]. Results must be considered in the clinical context, and a negative result does not rule out infection. Interpretive Data last revised 2023 Nasopharyngeal 05/29/2024 4: 10 PM CDT 05/29/2024 5:03 PM CDT Narrative [facility] - 05/29/2024 5:51 PM CDT Is the Patient experiencing symptoms consistent with COVID?->Unknown Mona Barrios MD LAB MICROBIOLOGY - GEN ERAL ORDERABLES Final Result [facility] Department [place] [address] [facility] * Respiratory pathogen panel Nasopharyngeal (05/29/2024 4:10 PM CDT) [facility] Influenza A RNA Not Detected Not Detected Influenza B RNA Not Detected Not Detected [facility] RSV RNA Not Detected Not Detected [facility] COVID-19 RNA Not Detected Not Detected [facility] Coronavirus 229E RNA Not Detected Not Detected [facility] Coronavirus HKU1 RNA Not Detected Not Detected [facility] Coronavirus NL63 RNA Not Detected Not Detected [facility] Coronavirus OC43 RNA Not Detected Not Detected [facility] Adenovirus DNA Not Detected Not Detected [facility] Metapneumovirus RNA Not Detected Not Detected [facility] Rhinovirus/Enterov irus RNA Not Detected Not Detected [facility] Parainfluenza 1 RNA Not Detected Not Detected [facility] Parainfluenza 2 RNA Not Detected Not Detected [facility] Parainfluenza 3 RNA Not Detected Not Detected [facility] Parainfluenza 4 RNA Not Detected Not Detected [facility] B. pertussis DNA Not Detected Not Detected [facility] B. parapertussis DNA Not Detected Not Detected [facility] C. pneumoniae DNA Not Detected Not Detected [facility] M. pneumoniae DNA Not Detected Not Detected [facility] Nasopharyngeal 05/29/2024 4: 10 PM CDT 05/30/2024 6:07 AM CDT Narrative [facility] - 05/30/2024 7:05 AM CDT Interpretive Data The inDegree FilmArray Respiratory Panel (RP2.1) assay is a [...] assay has FDA clearance for testing of MUSIC GRAPHER swabs. The performance of additional specimen types has been assessed by the performing laboratory. The performance characteristics of this assay have been determined by [facility] Molecular Infectious Disease Laboratory. Current interpretive data was last revised on 21. Pineda Barrios MD LAB MICROBIOLO GY - GENERAL ORDERABLES Final Result [facility] Department [place] [address] * Urinalysis reflex to microscopic (05/29/2024 3:31 PM CDT) Color, ur Yellow Yellow Clarity, ur Clear Clear [facility] Specific gravity, ur 1.013 1.003 - 1.030 [facility] pH, urine 5.5 [facility] Comment: Interpretive Data U rine pH is affected by diet, medications, systemic acid-base disturbances, and renal tubular function. pH may affect urinary stone formation. For example, urine pH below 6.0 may help reduce the tendency for calcium phosphate stones and pH greater than 6.0 may reduce the tendency for uric acid stone formation. Source: [facility] [employer] Current Interpretive Data was last revised on 2017 Protein, ur ql Trace Negative [facility] Glucose, ur ql Negative Negative [facility] Ketones, ur Negative Negative [facility] Bilirubin, ur Negative Negative [facility] Blood, ur Negative Negative [facility] Urobilinogen, ur <2.0 <2.0 mg/dL [facility] Nitrite, ur Negative Negative [facility] Leukocyte esterase, ur Negative Negative [facility] UA reflex comment Reflex conditions for microscopic UA not met. [facility] Urine 05/29/2024 3:31 PM CDT 05/29/2024 3:38 PM CDT hSruti Damon MD LAB URINE ORDERABLES Aniya l Result Performing Organization Address City/[facility] [place]/ZIP Co de Phone Number [facility] Department [place] [address] * POCT hCG, urine (05/29/2024 3:30 PM CDT) [facility] HCG, ur, POC Negative Negative Lot Number [id number] QC Backgroud Clear Acceptable QC Control Line Acceptable Urine 05/29/2024 3:30 PM CDT Shruti Damon MD POINT OF CARE TEST ORDERA BLES Final Result * POCT lactate (05/29/2024 3:02 PM CDT) [facility] Lactate POC i-STAT 1.9 0.7 - 2.0 mmol/L Blood 05/29/2024 3:02 PM CDT 05/29/2024 3:02 PM CDT Notinfile Unknown LAB POCT ORDERABLES - DEVICE F inal Result Performing Organization Address [facility] [place]/[facility] Co de Phone Number [facility] Department [place] [address] * (ABNORMAL) eGFR (05/29/2024 2:57 PM CDT) [facility] eGFR 30(L) >=60 mL/min/1. 73 m2 Comment: [...] Shruti Damon MD LAB BLOOD ORDERABLES Aniya maguire Result [facility] Department [place] [address] * Differential, auto (05/29/2024 2:57 PM CDT) Neutrophil abs 5.5 1.5 - 6.5 K/cumm Imm gran abs 0.0 0.0 - 0.1 K/cumm [facility] Lymphocyte abs 0.9 0.8 - 3.3 K/cumm [facility] Monocyte abs 0.4 0.2 - 0.8 K/cumm [facility] Eosinophil abs 0.1 0.0 - 0.5 K/cumm [facility] Basophil abs 0.0 0.0 - 0.1 K/cumm [facility] Neutrophil pct 79.6 % [facility] Comment: Interpretive Data Percent cell count reference ranges are not reported, since discordance with absolute values may lead to misinterpretation of CBC data. Current Interpretive Data was last revised on 2017. Imm gran pct 0.4 % [facility] Comment: Interpretive Data Percent cell count reference ranges are not reported, since discordance with absolute values may lead to misinterpretation of CBC data. Current Interpretive Data was last revised on 2017. Lymphocyte pct 13.7 % [facility] Comment: Interpretive Data Percent cell count reference ranges are not reported, since discordance with absolute values may lead to misinterpretation of CBC data. Current Interpretive Data was last revised on 2017. Monocyte pct 5.5 % [facility] Comment: Interpretive Data Percent cell count reference ranges are not reported, since discordance with absolute values may lead to misinterpretation of CBC data. Current Interpretive Data was last revised on 2017. Eosinophil pct 0.7 % [facility] Comment: Interpretive Data Percent cell count reference ranges are not reported, since discordance with absolute values may lead to misinterpretation of CBC data. Current Interpretive Data was last revised on 2017. Basophil pct 0.1 % [facility] Comment: Interpretive Data Percent cell count reference ranges are not reported, since discordance with absolute values may lead to misinterpretation of CBC data. Current Interpretive Data was last revised on 2017. Blood 05/29/2024 2:57 PM CDT 05/29/2024 3:21 PM CDT us Shruti Damon MD LAB BLOOD ORDERABLES Aniya maguire Result [facility] Department [place] [address] * (ABNORMAL) CBC with auto differential (05/29/2024 2:57 PM CDT) Pathologist [facility] WBC 6.9 3.8 - 9.9 K/cumm Hgb 13.5 11.9 - 15.5 g/dL [facility] Hct 38.8 35.6 - 45.5 % [facility] Plt 129(L) 150 - 400 K/cumm [facility] MPV 10.7 9.1 - 12.3 fL [facility] RBC 3.88(L) 3.90 - 5.20 M/cumm [facility] MCV 100.0(H) 81.3 - 96.4 fL [facility] MCH 34.8(H) 27.1 - 33.3 pg [facility] MCHC 34.8 32.3 - 35.7 g/dL [facility] RDW CV 13.0 11.1 - 14.9 % [facility] RDW SD 47.6 35.7 - 48.1 fL [facility] NRBC abs 0.00 0.00 - 0.01 K/cumm [facility] Blood Venous blood specimen / Unknown 05/29/2024 2:57 PM CDT 05/29/2024 3:21 PM CDT Shruti Damon MD LAB BLOOD ORDERABLES Aniya l Result Performing Organization Address City/[facility] [place]/ZIP Co de Phone Number [facility] Department [place] [address] * Tacrolimus level random (05/29/2024 2:57 PM CDT) Tacrolimus random 20.2 ng/mL Comment: Interpretive Data Testing performed by liquid chromatography-tandem mass spectrometry. Therapeutic concentrations vary depending on type of transplanted organ and time elapsed since transplant. Typical trough concentrations range from 5-15 ng/mL. This test was developed and its performance characteristics determined by the [facility] consistent with CLIA requirements. This test has not been cleared or approved by the [place] Food and Drug administration. Current interpretive data last reviewed 2019. Blood 05/29/2024 2:57 PM CDT 05/29/2024 3:28 PM CDT Pineda Barrios MD LAB BLOOD ORDE RABLES Final Result Performing Organization Address [facility] [place]/[facility] Co de Phone Number [facility] Department [place] [address] * Lipase (05/29/2024 2:57 PM CDT) Lipase 12 10 - 99 Units/L Blood Venous blood specimen / Unknown 05/29/2024 2:57 PM CDT 05/29/2024 3:20 PM CDT Shruti Damon MD LAB BLOOD ORDERABLES Aniya l Result Performing Organization Address [facility] [place]/[facility] Co de Phone Number [facility] Department [place] [address] * (ABNORMAL) Comprehensive metabolic panel (05/29/2024 2:57 PM CDT) Sodium 137 135 - 145 mmol/L Potassium, pl 4.6 3.3 - 4.9 mmol/L [facility] Chloride 107 97 - 110 mmol/L [facility] CO2 18(L) 22 - 32 mmol/L [facility] Anion gap 12 2 - 15 mmol/L [facility] BUN 22 6 - 25 mg/dL [facility] Creatinine 2.10(H) 0.60 - 1.10 mg/dL [facility] Glucose 185 70 - 199 mg/dL [facility] Comment: Interpretive Data Fasting glucose >/= 126 [...] 2022. Calcium 9.9 8.5 - 10.3 mg/dL [facility] Bilirubin, total 0.8 0.1 - 1.2 mg/dL [facility] Protein, pl 7.6 6.5 - 8.5 g/dL [facility] Albumin 4.0 3.5 - 5.0 g/dL [facility] Alk phos 372(H) 40 - 130 Units/L [facility] ALT 22 7 - 45 Units/L [facility] AST 28 10 - 45 Units/L [facility] Blood 05/29/2024 2:57 PM CDT 05/29/2024 3:20 PM CDT Shruti Damon MD LAB BLOOD ORDERABLES Aniya l Result [facility] [place] [address] * Hepatitis panel, acute (04/16/2020 6:35 AM GUIDE VISITOR) Hep A IgM Nonreactive Nonreactive [facility] Comment: Interpretive Data: If Hep A IgM Ab is reported as Equivocal, a new sample should be drawn in two weeks for testing. Current interpretive data was last revised on 19. Hep B core IgM Nonreactive Nonreactive [facility] Comment: Interpretive Data If HepB Core IgM Ab is reported as Equivocal, a new sample should be drawn in two weeks for testing. Current interpretive data was last revised on 19. Hep C Ab Nonreactive Nonreactive [facility] Comment:Antibodies to HCV no t detected. Does NOT exclude the possibility of recent exposure to HCV. HepBsAg Nonreactive Nonreactive [facility] Blood specimen (specimen) 04/16/2020 6:35 AM GUIDE VISITOR 04/16/2020 7:34 AM GUIDE VISITOR Jacob Gates MD LAB MICROBIOLOGY - GENER AL ORDERABLES Final Result [facility] [place] [address] from Last 3 Months or Most Recently Relevant to Health Maintenance Insurance [employer] OPEN ACCESS [place] [place] [facility] PLAN CIGNA [facility] [place] AETNA [facility] EXCHANGE Advance Directives For more information, please contact: [phone] * Full Code (Latest Code Status on File) Date Activated Date Inactivated Comments 05/29/2024 10:30 PM 06/13/2024 7:10 PM * Full Code Date Activated Date Inactivated Comments 04/16/2020 1:16 AM 04/23/2020 6:51 PM * Full Code Date Activated Date Inactivated Comments 08/14/2019 3:14 PM 08/14/2019 9:26 PM * Full Code Date Activated Date Inactivated Comments 07/25/2019 6:15 AM 07/25/2019 11:51 PM Care Teams Pourer Crane Ladle Relationship Specialty Start Date End Date Lyly Fiore NP [address] [place] [address] PCP - General Nurse Practitioner 05/29/24 Beatriz Lee MD [address] [place] [address] Referring Physician Gastroenterology 07/25/19 Taylor Kitchen, service plumberFiscal Accounting Clerk 05/29/24
--- OUTSIDE RECORDS SUMMARY | 2024-06-26 16:33 | XMS_ITS | Clinical Summary ---
Author Organization [facility] Address [address] [place] [address] Phone Care Team Providers Care Anodizing Line Operator Name Role Phone Hermes Ramirez MD Primary Care Provider [phone] Allergies Active Allergy Reactions Criticality Noted Date [...] BEDTIME 2 Active Butalbital-APAP -Caff-Cod (Fioricet/Codei ne) [id number] MG Capsule Take by mouth. 2 Active [...] 90 12/06/2021 1:35 PM CDT Temperature 36.6 C (97.9 F) 09/14/2018 11:38 AM CDT Respiratory Rate 18 09/14/2018 12:10 PM CDT Oxygen Saturation 98% 12/06/2021 1:35 PM CDT Inhaled Oxygen Concentration - - Weight 78.5 kg (173 lb) 12/06/2021 1:35 PM CDT Height 157.5 cm (5' 2 ) 10/13/2021 11:05 AM CDT Body Mass Index 31.64 10/13/2021 11:05 AM CDT Plan of Treatment Health Maintenance Due Date Last Done Comments Mammogram 1982 SARS-COV-2 Immunization (#1) 10/04/1987 Pneumococcal Immunization [...] Completed 10/18/2021, , 03/20/2017, Additional history exists Hepatitis C Virus (HCV) Screening Completed 11/07/2023 Meningococcal Immunization (ACWY) Aged Out No longer eligible based on patient's age to complete this topic Rotavirus Immunization Aged Out No lo nger eligible based on patient's age to complete this topic Insurance MED[place] [facility] Care Teams Anodizing Line Operator Relationship Specialty Start Date End Date Hermes Ramirez MD [address] [facility] [address] [place] [address] PCP - General Family Medicine 05/09/18
[2024-06-26 16:34] VITALS: BP 137/81; PULSE 71; RESP 16; TEMP 36.9; O2SAT 93
--- OUTSIDE RECORDS SUMMARY | 2024-06-26 16:34 | XMS_ITS | Encounter Summary ---
Author Organization [facility] Address [address] [place] [address] Care Team Providers Care Carpenters Helper Name Role Phone Ashley ZUNIGA MD, Hermes Primary Care Provid er Lyly Fiore NP Primary Care Provider [phone] Encounter Details Date Type Department Care Team (Late st Contact Info) Description 08/25/2018 Abstract [facility] [address] [place] [address] , Generic Conversion, Social History Tobacco Use Types Packs/Day Years Used Date Smoking Tobacco: Every Day Cigarettes 0.5 15 Smokeless Tobacco: Never Alcohol Use Standard Drinks/Week Comments No 0 (1 standard drink = 0.6 oz pur e alcohol) Comments No Sex and Gender Information Value Date Recorded Sex Assigned at Female 04/05/2024 4:26 PM DRYWALL CARRIER Legal Sex Female 9:15 PM DRYWALL CARRIER Gender Identity Not on file Sexual Orientation Not on file documented as of this encounter Plan of Treatment Not on file documented as of this encounter Visit Diagnoses Not on filedocumented in this encounter Additional Health Concerns Infection Onset Date Last Indicated Resolved Time COVID-19 Rule Out 03/30/2020 03/30/2020 03/30/2020 9:29 PM DRYWALL CARRIER COVID-19 Rule Out 03/30/2020 03/30/2020 03/31/2020 12:28 PM DRYWALL CARRIER COVID-19 Rule Out 02/16/2024 02/16/2024 02/16/2024 9:16 PM DRYWALL CARRIER Rhinovirus 02/16/2024 02/16/2024 02/26/2024 12:3 2 AM DRYWALL CARRIER documented as of this encounter Care Teams Carpenters Helper Relationship Specialty Start Date End Date Hermes Ramirez III, MD [address] [address] PCP - General FAMILY PRACTICE 06/20/17 04/13/24 Lyly Fiore NP [address] [place] [address] PCP - General NURSE PRACTITIONER 04/14/24 documented as of this encounter
--- OUTSIDE RECORDS SUMMARY | 2024-06-26 16:34 | XMS_ITS | Encounter Summary ---
Author Organization [facility] Address [address] [place] [address] Care Team Providers Care Oncology Social Worker Name Role Phone Ashley ZUNIGA MD, Hermes Perez Primary Care Provid er Lyly Fiore NP Primary Care Provider [phone] Encounter Details Date Type Department Care Team (Late st Contact Info) Description 08/22/2018 Abstract [facility] [address] [place] [id number] Social History Tobacco Use Types Packs/Day Years Used Date Smoking Tobacco: Every Day Cigarettes 0.5 15 Smokeless Tobacco: Never Alcohol Use Standard Drinks/Week Comments No 0 (1 standard drink = 0.6 oz pur e alcohol) Comments No Sex and Gender Information Value Date Recorded Sex Assigned at Female 04/05/2024 4:26 PM BOOK AUTHOR Legal Sex Female 9:15 PM BOOK AUTHOR Gender Identity Not on file Sexual Orientation Not on file documented as of this encounter Plan of Treatment Not on file documented as of this encounter Visit Diagnoses Not on filedocumented in this encounter Additional Health Concerns Infection Onset Date Last Indicated Resolved Time COVID-19 Rule Out 03/30/2020 03/30/2020 03/30/2020 9:29 PM BOOK AUTHOR COVID-19 Rule Out 03/30/2020 03/30/2020 03/31/2020 12:28 PM BOOK AUTHOR COVID-19 Rule Out 02/16/2024 02/16/2024 02/16/2024 9:16 PM BOOK AUTHOR Rhinovirus 02/16/2024 02/16/2024 02/26/2024 12:3 2 AM BOOK AUTHOR documented as of this encounter Care Teams Oncology Social Worker Relationship Specialty Start Date End Date Hermes Ramirez III, MD [address] [facility] [address] [place] [address] PCP - General FAMILY PRACTICE 06/20/17 04/13/24 Lyly Fiore NP [address] [place] [address] PCP - General NURSE PRACTITIONER 04/14/24 documented as of this encounter
--- OUTSIDE RECORDS SUMMARY | 2024-06-26 16:34 | XMS_ITS | Encounter Summary ---
Author Organization [facility] Address [address] [place] [address] Phone Care Team Providers Care Curtain Fitter Name Role Phone Beatriz Lee MD Unavailable [phone]- [phone] Llyy Fiore SYSTEMS APPLICATIONS PROGRAMMING LEAD Primary Care Provider Taylor Kitchen RN Unavailable Unav ailable Reason for Referral * (Routine) - Pending Review Specialty Diagnoses / Procedures Referred By Contac t Referred To Contact Diagnoses Nicotine dependence with current use Beatriz Lee MD [address] [place] [address] Phone: tel: fax: Referral ID Status Reason Start Date Expiration Date V isits Requested Visits Authorized [id number] Pending Review 06/26/2024 07/26/2025 1 1 Question Answer Number to text [phone] After discussion, the patient consents to the exchange of information with [facility] for purposes of the patient's participation in the tobacco cessation program. 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 Gender Identity Not on file Sexual Orientation Not on file documented as of this encounter Last Filed Vital Signs Vital Sign Reading Time Taken Comments Blood Pressure 146/88 06/26/2024 9:52 AM CDT Pulse 63 06/26/2024 9:52 AM CDT Temperature 36.9 C (98.4 F) 06/26/2024 9:52 AM CDT Respiratory Rate - - Oxygen Saturation 98% 06/26/2024 9:52 AM CDT Inhaled Oxygen Concentration - - Weight 88 kg (194 lb) 06/26/2024 9:52 AM CDT Height 160 cm (5' 3 ) 06/26/2024 9:52 AM CDT Body Mass Index 34.37 06/26/2024 9:52 AM CDT documented in this encounter Plan of Treatment Scheduled Referrals Name Type Priority Associated Diagnoses Order Schedule Ambulatory Referral to [facility] Outpatient Referral Routine Nicotine dependence with current use Ordered: 06/26/2024 documented as of this encounter Visit Diagnoses Diagnosis Nicotine dependence with current use documented in this encounter Historical Medications * This list may reflect changes made after this encounter. senna-docusate (PERICOLACE) 8.6-50 mg Take 2 tablets by mouth daily as needed 11/29/2023 multivitamin with minerals (Hair,Skin and Nails) tablet Take 1 tablet by mouth daily melatonin tablet Take 1 tablet (3 mg total) by mouth nightly calcium carbonate (OS-GERARDO) 1,250 mg (500 mg elemental) tablet Take 500 mg by mouth 11/29/2023 Abilify 2 mg tablet Take 1 tablet (2 mg total) by mouth daily 06/20/2024 added in this encounter Care Teams Curtain Fitter Relationship Specialty Start Date End Date Lyly Fiore NP [address] [place] [address] PCP - General Nurse Practitioner 05/29/24 Beatriz Lee MD [address] [place] [address] Referring Physician Gastroenterology 07/25/19 Taylor Kitchen, roping tenderMiddle School Band Teacher 05/29/24 documented as of this encounter
--- OUTSIDE RECORDS SUMMARY | 2024-06-26 16:34 | XMS_ITS ---
Author Organization [facility] Address [address] [place] [address] Care Team Providers Care Developer Prover Upholstering Name Role Phone Beatriz Lee MD Unavailable [phone]- [phone] Lyly Fiore NP Primary Care Provider Taylor Kitchen RN Unavailable Unav ailable Transplant Episode Liver Recipient [facility] ([place], [place]) - [facility] Transplanted on 03/20/2020 Marked as Active Follow-up on 03/20/2020 Reason: Transplanted at Outside Center Liver CoordinatorTaylor Kitchen RN Phone: N/A Fax: N/A Email: N/A Transplanted Elsewhere: Center not on file Coordinator: Phone: Fax: Venetie Ira Organ Diagnosis Organ Primary Contributory Liver Biliary Atresia: Extrahepatic Care Team Name Role Phone Fax Email Taylor Kitchen RN Liver Coordinator N/A N /A N/A Events Post-Transplant Pre-Transplant Transplanted: 03/20/2020 Appointments (05/26/2024 - 07/26/2024) When With Visit Type Description 06/26/2024 Transplant - Juan J Lee New Nicotine dependence with current use
--- OUTSIDE RECORDS SUMMARY | 2024-06-26 16:34 | XMS_ITS | Encounter Summary ---
Author Organization [facility] Healthcare Address [address] [place] [address] Care Team Providers Care Wharf Hand Name Role Phone Beatriz Lee MD Unavailable [phone]- [phone] Lyly Fiore SPINNER BOX Primary Care Provider Taylor Kitchen RN Unavailable Unav ailable Encounter Details Date Type Department Care Team (Late st Contact Info) Description 06/26/2024 Orders Only [facility] and [facility] Transplant Liver [address] 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 Gender Identity Not on file Sexual Orientation Not on file documented as of this encounter Plan of Treatment Scheduled Orders Name Type Priority Associated Diagnoses Orde r Schedule CBC with auto differential Lab Routine Status post liver transplant (HCC) Encounter for long-term (current) use of medications Bi-Weekly for 28 Occurrences starting 06/26/2024 until 06/26/2025 Comprehensive metabolic panel Lab Routine Status post liver transplant (HCC) Encounter for long-term (current) use of medications Bi-Weekly for 28 Occurrences starting 06/26/2024 until 06/26/2025 Gamma GT Lab Routine Status post liver transplant (HCC) Encounter for long-term (current) use of medications Bi-Weekly for 28 Occurrences starting 06/26/2024 until 06/26/2025 Tacrolimus level trough Lab Routine Status post liver transplant (HCC) Encounter for long-term (current) use of medications Bi-Weekly for 28 Occurrences starting 06/26/2024 until 06/26/2025 documented as of this encounter Visit Diagnoses Diagnosis Status post liver transplant (HCC)- Primary Liver replaced by transplant Encounter for long-term (current) use of medications Encounter for long-term (current) use of other medications documented in this encounter Care Teams Wharf Hand Relationship Specialty Start Date End Date Lyly Fiore NP [address] [place] [address] PCP - General Nurse Practitioner 05/29/24 Beatriz Lee MD [address] [place] [address] Referring Physician Gastroenterology 07/25/19 Taylor Kitchen, straw hat presserPlacement Coordinator 05/29/24 documented as of this encounter
--- OUTSIDE RECORDS SUMMARY | 2024-06-26 16:34 | XMS_ITS | Encounter Summary ---
Author Organization [facility] Healthcare Address [address] [place] [address] Care Team Providers Care Social Service Worker Name Role Phone Beatriz Lee MD Unavailable [phone]- [phone] Lyly Fiore IT AUDITOR Primary Care Provider Taylor Kitchen RN Unavailable Unav ailable Reason for Referral * Consultation (Routine) - Pending Review Specialty Diagnoses / Procedures Referred By Esvin t Referred To Contact Pain Management Diagnoses Other chronic pain Beatriz Lee MD [address] [place] [address] Phone: tel: fax: [address] [address] Referral ID Status Reason Start Date Expiration Date Visits Requested Visits Authorized [id number] Pending Review Specialty Services Required 06/26/2024 07/26/2025 1 1 Question Answer Please select the performing region: [facility] [152] # of visits: 1 Comments Any provider. S/p liver/kidney txp with hx of chronic pain due to spinal stenosis. She saw pain management recently while inpt here at [facility]. Was going to follow up with pain management locally but would prefer to be seen at [facility] Encounter Details Date Type Department Care Team (Late st Contact Info) Description 06/26/2024 Telephone [facility] and [facility] Transplant Liver [address] [facility] [address] [phone] [place] [address] Dafne Dukes, RN Social History Tobacco Use Types Packs/Day [...] on file Legal Sex Female 10:10 PM BINDING CUTTER SYNTHETIC CLOTH Gender Identity Not on file Sexual Orientation Not on file documented as of this encounter Ordered Prescriptions Prescription Sig Dispense Quantity Refills Last Filled Start Date End Date predniSONE (DELTASONE) 5 mg tablet Take 1 tablet (5 mg) by mouth daily 30 tablet 11 06/26/2024 6 azaTHIOprine (IMURAN) 100 mg tablet Take 1 tablet (100 mg total) by mouth daily 30 tablet 11 06/26/2024 6 tacrolimus XR (ENVARSUS XR) 1 mg tablet extended release 24 hrIndications:Prev ention of Kidney Transplant Rejection Take 4 tablets (4 mg total) by mouth daily 360 tablet 3 06/26/2024 6 documented in this encounter Miscellaneous Notes * Telephone Encounter - Dafne Dukes, ANSON - 06/26/2024 1:46 PM CDT Spoke to the patient to follow up on her clinic appointment today. She would like her updated lab orders to go to [facility]. She plans on getting labs done this week/next week. She willcall our office if any issues at the lab. She is aware orders will be under Dr. Lee. We discussed sending her scripts for azathioprine and prednisone to her local [facility]. She was unaware that she was enrolled in the PAP for Envarsus. Called [facility]. They need updated script sent for year's supply. Script updated. Let pt know that I would email her their phone number and will alsotouch base with SW. I let her know that I am putting in referrals to the pain management clinic here and also sent a message to Dr. Carrillo for counseling. I also emailed her the phone numbers for the pain management clinic and ortho spine to follow up on her hospital referral. Will ask Lorena Johnny to send Monthly and prn CBC w/diff, CMP, GGT, and Tacrolimus Lab patient will use [facility] Ordering provider Dr. Lee Diagnosis Z94.4, kidney txp? Expected date this week documented in this encounter Plan of Treatment Scheduled Referrals Name Type Priority Associated Diagnoses Order Schedule Ambulatory referral to Pain Management Outpatient Referral Routine Other chronic pain 1 Occurrences starting 06/26/2024 until 06/26/2025 documented as of this encounter Visit Diagnoses Diagnosis Other chronic pain- Primary History of liver transplant (HCC) Liver replaced by transplant documented in this encounter Discontinued Medications Medication Sig Discontinue Reason Start Date End Da te tacrolimus XR (ENVARSUS XR) 1 mg tablet extended release 24 hrIndications:Prevention of Kidney Transplant Rejection Take 4 tablets (4 mg total) by mouth daily Reorder 06/13/2024 06/26/2024 azaTHIOprine (IMURAN) 100 mg tablet Take 1 tablet (100 mg total) by mouth daily Reorder 06/13/2024 06/26/2024 predniSONE (DELTASONE) 5 mg tablet Take 1 tablet (5 mg) by mouth daily Reorder 06/12/2024 06/26/2024 documented as of this encounter Care Teams Social Service Worker Relationship Specialty Start Date End Date Lyly Fiore NP [address] [place] [address] PCP - General Nurse Practitioner 05/29/24 Beatriz Lee MD [address] [place] [address] Referring Physician Gastroenterology 07/25/19 Taylor Kitchen, laborer high density pressCommercial Front Load Driver 05/29/24 documented as of this encounter
--- OUTSIDE RECORDS SUMMARY | 2024-06-26 16:34 | XMS_ITS | Encounter Summary ---
Author Organization [facility] Address [address] [place] [address] Care Team Providers Care Cath Lab Technologist Name Role Phone Ashley ZUNIGA MD, Hermes Perez Primary Care Provid er Lyly Fiore NP Primary Care Provider [phone] Encounter Details Date Type Department Care Team ([facility] st Contact Info) Description 06/03/2017 Abstract [facility] CONVERSION [address] [place] [address] , Generic ConversionMD Social History Tobacco Use Types Packs/Day Years Used Date Smoking Tobacco: Never Assessed Comments Unknown Sex and Gender Information Value Date Recorded Sex Assigned at Female 04/05/2024 4:26 PM [employer] Legal Sex Female 9:15 PM [employer] Gender Identity Not on file Sexual Orientation Not on file documented as of this encounter Plan of Treatment Not on file documented as of this encounter Visit Diagnoses Not on filedocumented in this encounter Additional Health Concerns Infection Onset Date Last Indicated Resolved Time COVID-19 Rule Out 03/30/2020 03/30/2020 03/30/2020 9:29 PM [employer] COVID-19 Rule Out 03/30/2020 03/30/2020 03/31/2020 12:28 PM [employer] COVID-19 Rule Out 02/16/2024 02/16/2024 02/16/2024 9:16 PM [employer] Rhinovirus 02/16/2024 02/16/2024 02/26/2024 12:3 2 AM [employer] documented as of this encounter Care Teams Cath Lab Technologist Relationship Specialty Start Date End Date Hermes Ramirez III, MD [address] [address] PCP - General FAMILY PRACTICE 06/20/17 04/13/24 Lyly Fiore NP [address] [place] [address] PCP - General NURSE PRACTITIONER 04/14/24 documented as of this encounter
--- OUTSIDE RECORDS SUMMARY | 2024-06-26 16:34 | XMS_ITS | Encounter Summary ---
Author Organization [facility] Healthcare Address [address] [place] [address] Care Team Providers Care Spray Crew Name Role Phone Beatriz Lee MD Unavailable [phone] Lyly Fiore BIZTALK ADMINISTRATOR Primary Care Provider Taylor Kitchen RN Unavailable Unav ailable Encounter Details Date Type Department Care Team (Late st Contact Info) Description 06/26/2024 Telephone [facility] and [facility] Transplant Liver [address] [facility] [address] [phone] [place] [address] Lorena Turner Social History Tobacco Use Types Packs/Day Years [...] on file Legal Sex Female 10:10 PM 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 Lee) * Telephone Encounter - Lorena Turner - 06/26/2024 1:58 PM CDT Request was faxed for: 2023 liver and kidney biopsy slides from [facility] ( prob done or 11/2023) SO for GGT was faxed to [facility] lab - please add a GGT to her standing lab orders. documented in this encounter Plan of Treatment Not on file documented as of this encounter Visit Diagnoses Not on filedocumented in this encounter Care Teams Spray Crew Relationship Specialty Start Date End Date Lyly Fiore NP [address] [place] [address] PCP - General Nurse Practitioner 05/29/24 Beatriz Lee MD [address] [place] [address] Referring Physician Gastroenterology 07/25/19 Taylor Kitchen, provider network mgrPulley Man 05/29/24 documented as of this encounter
--- OUTSIDE RECORDS SUMMARY | 2024-06-26 16:34 | XMS_ITS | Encounter Summary ---
Author Organization [facility] Healthcare Address [address] [place] [address] Care Team Providers Care Hydraulic Hammer Operator Name Role Phone Beatriz Lee MD Unavailable [phone]- [phone] Lyly Fiore CHECK CLERK Primary Care Provider Taylor Kitchen RN Unavailable Unav ailable Encounter Details Date Type Department Care Team (Late st Contact Info) Description 06/26/2024 Documentation [facility] and [facility] Transplant Liver [address] [facility] [address] Mail[address] [phone] [place] [address] Dafne Dukes, RN Social History Tobacco Use [...] on file Legal Sex Female 10:10 PM 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 CONTROLS DESIGNER Gender Identity Not on file Sexual Orientation Not on file documented as of this encounter Plan of Treatment Not on file documented as of this encounter Visit Diagnoses Not on filedocumented in this encounter Care Teams Hydraulic Hammer Operator Relationship Specialty Start Date End Date Lyly Fiore NP [address] [place] [address] PCP - General Nurse Practitioner 05/29/24 Beatriz Lee MD [address] [place] [address] Referring Physician Gastroenterology 07/25/19 Taylor Kitchen, account management assistantUrban Planning Teacher 05/29/24 documented as of this encounter
--- OUTSIDE RECORDS SUMMARY | 2024-06-26 16:34 | XMS_ITS | Encounter Summary ---
Author Organization [facility] Healthcare Address [address] [place] [address] Care Team Providers Care Systems Developer Name Role Phone Beatriz Lee MD Unavailable [phone] AND BUILDING DECORATOR Primary Care Provider Taylor Kitchen RN Unavailable Unav ailable Encounter Details Date Type Department Care Team (Late st Contact Info) Description 06/26/2024 Orders Only [facility] and [facility] Transplant Liver [address] [facility] [address] [phone] [place] [address] Dafne Dukes, RN History of liver transplant (HCC) (Primary [...] on file Legal Sex Female 10:10 PM APPLIED TECHNOLOGIST Gender Identity Not on file Sexual Orientation Not on file documented as of this encounter Plan of Treatment Scheduled Orders Name Type Priority Associated Diagnoses Orde r Schedule Gamma GT Lab Routine History of liver transplant (HCC) Encounter for long-term (current) use of medications Bi-Weekly for 28 Occurrences starting 06/26/2024 until 06/26/2025 documented as of this encounter Visit Diagnoses Diagnosis History of liver transplant (HCC)- Primary Liver replaced by transplant Encounter for long-term (current) use of medications Encounter for long-term (current) use of other medications documented in this encounter Care Teams Systems Developer Relationship Specialty Start Date End Date Lyly Fiore NP [address] [place] [address] PCP - General Nurse Practitioner 05/29/24 Beatriz Lee MD [address] [place] [address] Referring Physician Gastroenterology 07/25/19 Taylor Kitchen, piano tunerInspector Rag Sorting 05/29/24 documented as of this encounter
--- OUTSIDE RECORDS SUMMARY | 2024-06-26 17:04 | XMS_ITS | Clinical Summary ---
Author Organization [facility] Address [address] [place] [address] Phone Care Team Providers Care String Top Sealer Name Role Phone Hermes Ramirez MD Primary Care Provider [phone] Allergies Active Allergy Reactions Criticality Noted Date [...] BEDTIME 2 Active Butalbital-APAP -Caff-Cod (Fioricet/Codei ne) 03-362-82-30 MG Capsule Take by mouth. 2 Active [...] this topic Insurance MEDICAID [place] [facility] Care Teams String Top Sealer Relationship Specialty Start Date End Date Hermes Ramirez MD [address] [facility] [address] [place] [address] PCP - General Family Medicine 05/09/18
--- OUTSIDE RECORDS SUMMARY | 2024-06-26 17:04 | XMS_ITS | Clinical Summary ---
Author Organization [facility] Address [address] [place] [address] Care Team Providers Care Patient Service Coordinator Name Role Phone Beatriz Lee MD Unavailable [phone] Lyly Fiore NP Primary Care Provider Taylor [...] t be different from the original. Lab: [facility]. . . Pharmacy: [place], [place] Patient enrolled in [employer] assistance program for Envarsus until 03/2025 -[facility] for script Problem Noted Date Diagnosed [...] Transplant starting process of assuming care from [facility], but in short term they recommend patient follow up with renal transplant at [facility]. - She is NOW actively enrolled in the [employer] free patient assistance program through mar 2025 - script needs to be sent to [facility] (sent). Hyperbilirubinemia 04/16/2020 Assessment & Plan (04/16/2020 5:01 AM CLEAT THROWER): - T. Bili of 7 (last was [...] 07/25/2019 Assessment & Plan (04/16/2020 2:25 AM CLEAT THROWER): See hyperbili problem. Concern for ascites Assessment [...] 12/14/2016 Assessment & Plan (04/16/2020 2:26 AM CLEAT THROWER): - Chronic, concerned that this may be [...] liver and kidney transplant 04/2020. 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 We would need to call [facility] to identify a contracted center ([phone]). She lives close enough to [place] that would be the most likely city she could travel to. She also noted that she could always remarry an ex- as he has insurance that may be covered at [facility]/. Appreciate note from nephrology and agree with restarting oral diuretics. Can continue tacrolimus at the current dose. MRI/MRCP completed and will review with radiology to identify if any role for PTC. Assessment & Plan (04/16/2020 2:26 AM CLEAT THROWER): S/p liver tranplant in 1992 for biliary [...] meds Assessment & Plan (04/16/2020 5:01 AM CLEAT THROWER): Unclear if progression of CKD vs acute [...] Cr of 1.8. She follows with local farm machine tender Dr. Mathew and thinks her baseline is 2.1. She was at 2.3 at OSH. She took some diuretics at home and was given lasix at [facility]SH ED. --UA, urine lytes --get records from her farm machine tender to find out baseline --random tacro level --monitor Is & Os; avoid nephrotoxins Encounters Date Type Department Care Team Description 06/26/2024 9:30 AM CDT Office Visit [facility] [address] [facility] 12th [place] [address] [place] [phone] Beatriz Lee MD Nicotine dependence with current use 06/26/2024 Orders Only [facility] Transplant Liver [address] [place] [address]-92-[address] [place] [address] Dafne Dukes RN Status post liver transplant (HCC) (Primary Dx); Encounter for long-term (current) use of medications 06/26/2024 Telephone [facility] Transplant Liver [address] [place] [address]-78-0 [place] [address] Lorena Turner 06/26/2024 Orders Only [facility] Transplant Liver [address] [place] [address]-37-4 [place] [address] Dafne Dukes RN History of liver transplant (HCC) (Primary Dx); Encounter for long-term (current) use of medications 06/26/2024 Documentation [facility] Transplant Liver [address] [place] [address] [place] [address]52-1 [place] [address] Dafne Dukes RN 06/26/2024 Telephone [facility] Transplant Liver [address] [place] [address] [place] [address]57-6 [place] [address] Dafne Dukes, ANSON 06/14/2024 SHOP/CHAP Initial Eligibility Review [facility] [address] [place] [phone] Shireen Griffin RN 06/13/2024 Orders Only [facility] Transplant Liver [address] [facility] [address] [phone] [place] [address] Dafne Dukes RN Kidney transplanted (Primary Dx) 06/06/2024 Telephone [facility] Transplant Kidney [address] [facility] [address] [phone] [place] [address] Netta Mcintosh 05/29/2024 3:11 PM CDT - 06/13/2024 3:04 PM CDT Hospital Encounter [facility] [address] [place] [phone] Jessee Mandel MD Edwards, MD Pooja Felix, MD Scout Levin, MD David Santos, Patrick José MD Abdominal pain (Primary Dx); CHRISTY (acute kidney injury); Chronic generalized pain [R52, G89.29]; High risk medication use [Z79.899]; Hyperkalemia; Chronic bilateral low back pain without sciatica; 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 Discharge Disposition: Discharge to home or self care 05/09/2024 Telephone [facility] Transplant Liver [address] [facility] [address] Mail[address] [phone] [place] [address] Liyah Kamara 05/07/2024 Telephone [facility] Transplant Liver [address] [facility] [address] Mail[address] [phone] [place] [address] Lorena Turner 05/07/2024 Telephone [facility] Transplant Liver [address] [facility] [address] Mailstop [phone] [place] [address] Lorena Turner 05/06/2024 Documentation [facility] Transplant Liver [address] [facility] [address] [phone] [place] [address] Taylor Kitchen RN 05/06/2024 Telephone [facility] Transplant Liver [address] [facility] [address] Mailstop [phone] [place] [address] Lorena Turner Referral - Liver Txp from Last 3 Months Surgical History Surgery Date Site/Laterality Comments DC COLONOSCOPY FLX DX W/ROMAIN J SPEC WHEN [...] on file Legal Sex Female 10:10 PM CLEAT THROWER Gender Identity Not on file Sexual Orientation [...] CDT HEPATITIS PANEL, ACUTE Routine 6:35 AM CLEAT THROWER from Last 3 Months or Most Recently Relevant to Health Maintenance Results * (ABNORMAL) eGFR (06/13/2024 5:15 AM CDT) Pathologist [facility] eGFR 31(L) >=60 mL/min/1. 73 m2 Comment: [...] MD PhD LAB BLOOD ORDERABLES Final Result [facility] [address] [facility] Department [place] [address] * Differential, auto (06/13/2024 5:15 AM CDT) Neutrophil abs 3.2 1.5 - 6.5 K/cumm Imm gran abs 0.0 0.0 - 0.1 K/cumm [facility] Lymphocyte abs 0.9 0.8 - 3.3 K/cumm [facility] Monocyte abs 0.3 0.2 - 0.8 K/cumm [facility] Eosinophil abs 0.2 0.0 - 0.5 K/cumm [facility] Basophil abs 0.0 0.0 - 0.1 K/cumm [facility] Neutrophil pct 69.4 % [facility] Comment: Interpretive Data Percent cell count reference ranges are not reported, since discordance with absolute values may lead to misinterpretation of CBC data. Current Interpretive Data was last revised on 2017. Imm gran pct 0.2 % [facility] Comment: Interpretive Data Percent cell count reference ranges are not reported, since discordance with absolute values may lead to misinterpretation of CBC data. Current Interpretive Data was last revised on 2017. Lymphocyte pct 20.4 % [facility] Comment: Interpretive Data Percent cell count reference ranges are not reported, since discordance with absolute values may lead to misinterpretation of CBC data. Current Interpretive Data was last revised on 2017. Monocyte pct 5.9 % [facility] Comment: Interpretive Data Percent cell count reference ranges are not reported, since discordance with absolute values may lead to misinterpretation of CBC data. Current Interpretive Data was last revised on 2017. Eosinophil pct 3.9 % [facility] Comment: Interpretive Data Percent cell count reference ranges are not reported, since discordance with absolute values may lead to misinterpretation of CBC data. Current Interpretive Data was last revised on 2017. Basophil pct 0.2 % [facility] Comment: Interpretive Data Percent cell count reference ranges are not reported, since discordance with absolute values may lead to misinterpretation of CBC data. Current Interpretive Data was last revised on 2017. Blood 06/13/2024 5:15 AM CDT 06/13/2024 6:05 AM CDT Martha Butterfield MD LAB BLOOD ORDERABLES F inal Result Performing Organization Address [facility] Co de Phone Number [facility] Department [place] [address] [place] [address] * Tacrolimus level trough (06/13/2024 5:15 AM CDT) [facility] Tacrolimus trough 7.4 ng/mL Comment: Interpretive Data Testing performed by liquid chromatography-tandem mass spectrometry. Therapeutic concentrations vary depending on type of transplanted organ and time elapsed since transplant. Typical trough concentrations range from 5-15 ng/mL. This test was developed and its performance characteristics determined by the [facility] consistent with CLIA requirements. This test has not been cleared or approved by the US Food and Drug administration. Current interpretive data last reviewed 2019. Blood 06/13/2024 5:15 AM CDT 06/13/2024 6:05 AM CDT Patricia Davidson MD PhD LAB BLOOD ORDERABLES Final Result Performing Organization Address City/[facility]/ZIP Co de Phone Number [facility] Department [place] [address] * (ABNORMAL) CBC with auto differential (06/13/2024 5:15 AM CDT) [facility] WBC 4.6 3.8 - 9.9 K/cumm Hgb 11.1(L) 11.9 - 15.5 g/dL [facility] Hct 32.8(L) 35.6 - 45.5 % [facility] Plt 112(L) 150 - 400 K/cumm [facility] MPV 11.6 9.1 - 12.3 fL [facility] RBC 3.13(L) 3.90 - 5.20 M/cumm [facility] MCV 104.8(H) 81.3 - 96.4 fL [facility] MCH 35.5(H) 27.1 - 33.3 pg [facility] MCHC 33.8 32.3 - 35.7 g/dL [facility] RDW CV 14.8 11.1 - 14.9 % [facility] RDW SD 56.5(H) 35.7 - 48.1 fL [facility] NRBC abs 0.00 0.00 - 0.01 K/cumm [facility] Blood 06/13/2024 5:15 AM CDT 06/13/2024 6:05 AM CDT us Martha Butterfield MD LAB BLOOD ORDERABLES F inal Result [facility] Department [place] [address] * (ABNORMAL) Renal function panel (06/13/2024 5:15 AM CDT) [facility] Sodium 144 135 - 145 mmol/L Potassium, pl 4.9 3.3 - 4.9 mmol/L [facility] Chloride 111(H) 97 - 110 mmol/L [facility] CO2 25 22 - 32 mmol/L [facility] Anion gap 8 2 - 15 mmol/L [facility] BUN 27(H) 6 - 25 mg/dL [facility] Creatinine 2.03(H) 0.60 - 1.10 mg/dL [facility] Glucose 121 70 - 199 mg/dL [facility] Comment: Interpretive Data Fasting glucose >/= 126 [...] 2022. Calcium 8.6 8.5 - 10.3 mg/dL [facility] Phosphorus, pl 3.9 2.3 - 4.5 mg/dL [facility] Albumin 3.6 3.5 - 5.0 g/dL [facility] Blood 06/13/2024 5:15 AM CDT 06/13/2024 6:05 AM CDT us Patricia Davidson MD PhD LAB BLOOD ORDERABLES Final Result [facility] Department [place] [address] * (ABNORMAL) eGFR (06/12/2024 5:52 AM CDT) [...] BLOOD ORDERABLES Final Result Performing Organization Address [facility] de Phone Number [facility] [place] [address] * Tacrolimus level trough (06/12/2024 5:52 AM CDT) Pathologist [facility] Tacrolimus trough 6.2 ng/mL Comment: Interpretive Data Testing performed by liquid chromatography-tandem mass spectrometry. Therapeutic concentrations vary depending on type of transplanted organ and time elapsed since transplant. Typical trough concentrations range from 5-15 ng/mL. This test was developed and its performance characteristics determined by the [facility] consistent with CLIA requirements. This test has not been cleared or approved by the US Food and Drug administration. Current interpretive data last reviewed 2019. Blood 06/12/2024 5:52 AM CDT 06/12/2024 6:18 AM CDT Patricia Davidson MD PhD LAB BLOOD ORDERABLES Final Result Performing Organization Address [facility] de Phone Number [facility] [place] [address] * (ABNORMAL) Renal function panel (06/12/2024 5:52 AM CDT) [facility] Sodium 145 135 - 145 mmol/L Potassium, pl 5.0(H) 3.3 - 4.9 mmol/L [facility] Chloride 112(H) 97 - 110 mmol/L [facility] CO2 27 22 - 32 mmol/L [facility] Anion gap 6 2 - 15 mmol/L [facility] BUN 30(H) 6 - 25 mg/dL [facility] Creatinine 2.16(H) 0.60 - 1.10 mg/dL [facility] Glucose 101 70 - 199 mg/dL [facility] Comment: Interpretive Data Fasting glucose >/= 126 [...] 2022. Calcium 8.7 8.5 - 10.3 mg/dL [facility] Phosphorus, pl 4.3 2.3 - 4.5 mg/dL [facility] Albumin 3.4(L) 3.5 - 5.0 g/dL [facility] Blood 06/12/2024 5:52 AM CDT 06/12/2024 6:17 AM CDT us Patricia Davidson MD PhD LAB BLOOD ORDERABLES Final Result [facility] Department [place] [address] * Potassium, whole blood (06/11/2024 11:29 PM CDT) [facility] Potassium, bld 4.7 3.3 - 4.9 mmol/L Blood 06/11/2024 11:2 9 PM CDT 06/11/2024 11:48 PM CDT us Patrick Hernandez MD LAB BLOOD ORDERABLES Fi nal Result [facility] Department [place] [address] * (ABNORMAL) eGFR (06/11/2024 5:14 AM CDT) [facility] eGFR 28(L) >=60 mL/min/1. 73 m2 Comment: [...] MD PhD LAB BLOOD ORDERABLES Final Result [facility] Department [place] [address] * Differential, auto (06/11/2024 5:14 AM CDT) [facility] Neutrophil abs 2.3 1.5 - 6.5 K/cumm Imm gran abs 0.0 0.0 - 0.1 K/cumm [facility] Lymphocyte abs 1.0 0.8 - 3.3 K/cumm [facility] Monocyte abs 0.3 0.2 - 0.8 K/cumm [facility] Eosinophil abs 0.2 0.0 - 0.5 K/cumm [facility] Basophil abs 0.0 0.0 - 0.1 K/cumm [facility] Neutrophil pct 61.8 % [facility] Comment: Interpretive Data Percent cell count reference ranges are not reported, since discordance with absolute values may lead to misinterpretation of CBC data. Current Interpretive Data was last revised on 2017. Imm gran pct 0.5 % [facility] Comment: Interpretive Data Percent cell count reference ranges are not reported, since discordance with absolute values may lead to misinterpretation of CBC data. Current Interpretive Data was last revised on 2017. Lymphocyte pct 26.6 % [facility] Comment: Interpretive Data Percent cell count reference ranges are not reported, since discordance with absolute values may lead to misinterpretation of CBC data. Current Interpretive Data was last revised on 2017. Monocyte pct 6.6 % [facility] Comment: Interpretive Data Percent cell count reference ranges are not reported, since discordance with absolute values may lead to misinterpretation of CBC data. Current Interpretive Data was last revised on 2017. Eosinophil pct 4.2 % [facility] Comment: Interpretive Data Percent cell count reference ranges are not reported, since discordance with absolute values may lead to misinterpretation of CBC data. Current Interpretive Data was last revised on 2017. Basophil pct 0.3 % [facility] Comment: Interpretive Data Percent cell count reference ranges are not reported, since discordance with absolute values may lead to misinterpretation of CBC data. Current Interpretive Data was last revised on 2017. Blood 06/11/2024 5:14 AM CDT 06/11/2024 6:24 AM CDT us Martha Butterfield MD LAB BLOOD ORDERABLES F inal Result [facility] Department [place] [address] * Tacrolimus level trough (06/11/2024 5:14 AM CDT) [facility] Tacrolimus trough 5.4 ng/mL Comment: Interpretive Data Testing performed by liquid chromatography-tandem mass spectrometry. Therapeutic concentrations vary depending on type of transplanted organ and time elapsed since transplant. Typical trough concentrations range from 5-15 ng/mL. This test was developed and its performance characteristics determined by the [facility] consistent with CLIA requirements. This test has not been cleared or approved by the US Food and Drug administration. Current interpretive data last reviewed 2019. Blood 06/11/2024 5:14 AM CDT 06/11/2024 5:51 AM CDT Patricia Davidson MD PhD LAB BLOOD ORDERABLES Final Result Performing Organization Address [facility]/ZIP Co de Phone Number [facility] [place] [address] [place] [address] * (ABNORMAL) CBC with auto differential (06/11/2024 5:14 AM CDT) WBC 3.8 3.8 - 9.9 K/cumm Hgb 10.3(L) 11.9 - 15.5 g/dL [facility] Hct 30.0(L) 35.6 - 45.5 % [facility] Plt 93(L) 150 - 400 K/cumm [facility] MPV 11.5 9.1 - 12.3 fL [facility] RBC 2.82(L) 3.90 - 5.20 M/cumm [facility] MCV 106.4(H) 81.3 - 96.4 fL [facility] MCH 36.5(H) 27.1 - 33.3 pg [facility] MCHC 34.3 32.3 - 35.7 g/dL [facility] RDW CV 14.5 11.1 - 14.9 % [facility] RDW SD 55.4(H) 35.7 - 48.1 fL [facility] NRBC abs 0.00 0.00 - 0.01 K/cumm [facility] Blood 06/11/2024 5:14 AM CDT 06/11/2024 6:24 AM CDT us Martha Butterfield MD LAB BLOOD ORDERABLES F inal Result Performing Organization Address City/[facility]/ZIP Co de Phone Number [facility] Department [place] [address] [place] [address] * (ABNORMAL) Renal function panel (06/11/2024 5:14 AM CDT) Sodium 141 135 - 145 mmol/L Potassium, pl 4.6 3.3 - 4.9 mmol/L [facility] Chloride 109 97 - 110 mmol/L [facility] CO2 23 22 - 32 mmol/L [facility] Anion gap 9 2 - 15 mmol/L [facility] BUN 29(H) 6 - 25 mg/dL [facility] Creatinine 2.24(H) 0.60 - 1.10 mg/dL [facility] Glucose 133 70 - 199 mg/dL [facility] Comment: Interpretive Data Fasting glucose >/= 126 [...] 2022. Calcium 8.6 8.5 - 10.3 mg/dL [facility] Phosphorus, pl 3.8 2.3 - 4.5 mg/dL [facility] Albumin 3.4(L) 3.5 - 5.0 g/dL [facility] Blood 06/11/2024 5:14 AM CDT 06/11/2024 5:51 AM CDT us Patricia Davidson MD PhD LAB BLOOD ORDERABLES Final Result [facility] Department [place] [address] * Potassium, whole blood (06/10/2024 10:18 PM CDT) Potassium, bld 4.7 3.3 - 4.9 mmol/L Blood 06/10/2024 10:1 8 PM CDT 06/10/2024 11:20 PM CDT Martha Butterfield MD LAB BLOOD ORDERABLES F inal Result Performing Organization Address [facility] Co de Phone Number [facility] [place] [address] * POCT glucose (06/10/2024 1:15 PM CDT) Glucose, POC 145 70 - 199 mg/dL Blood 06/10/2024 1:15 PM CDT 06/10/2024 1:15 PM CDT Martha Butterfield MD LAB POCT ORDERABLES - DEVICE Final Result Performing Organization Address [facility] de Phone Number [facility] [place] [address] * Potassium (06/10/2024 10:34 AM CDT) Potassium, pl 4.7 3.3 - 4.9 mmol/L Blood 06/10/2024 10:3 4 AM CDT 06/10/2024 11:28 AM CDT Martha Butterfield MD LAB BLOOD ORDERABLES F inal Result Performing Organization Address [facility] [place] [address] * (ABNORMAL) Hepatic function panel (06/10/2024 10:34 AM CDT) Bilirubin, total 0.7 0.1 - 1.2 mg/dL Bilirubin, direct 0.3 0.1 - 0.3 mg/dL [facility] Protein, pl 6.3(L) 6.5 - 8.5 g/dL [facility] Albumin 3.7 3.5 - 5.0 g/dL [facility] Alk phos 253(H) 40 - 130 Units/L [facility] ALT 23 7 - 45 Units/L [facility] AST 25 10 - 45 Units/L [facility] Blood 06/10/2024 10:3 4 AM CDT 06/10/2024 11:28 AM CDT Martha Butterfield MD LAB BLOOD ORDERABLES F inal Result Performing Organization Address City/[facility] Co de Phone Number [facility] [place] [address] * POCT glucose (06/10/2024 9:48 AM CDT) Glucose, POC 157 70 - 199 mg/dL Blood 06/10/2024 9:48 AM CDT 06/10/2024 9:48 AM CDT Martha Butterfield MD LAB POCT ORDERABLES - DEVICE Final Result Performing Organization Address [facility] Co de Phone Number [facility] [place] [address] [place] [address] * POCT glucose (06/10/2024 6:35 AM CDT) Glucose, POC 137 70 - 199 mg/dL Blood 06/10/2024 6:35 AM CDT 06/10/2024 6:35 AM CDT Martha Butterfield MD LAB POCT ORDERABLES - DEVICE Final Result Performing Organization Address [facility] Co de Phone Number [facility] [place] [address] [place] [address] * (ABNORMAL) Potassium, whole blood (06/10/2024 4:17 AM CDT) Potassium, bld 5.2(H) 3.3 - 4.9 mmol/L Blood 06/10/2024 4:17 AM CDT 06/10/2024 4:24 AM CDT us Lyndsey Ramos MD LAB BLOOD ORDERABLES Aniya l Result Performing Organization Address [facility] Co de Phone Number [facility] [place] [address] * (ABNORMAL) eGFR (06/10/2024 4:14 AM CDT) [...] BLOOD ORDERABLES Final Result Performing Organization Address [facility] Co de Phone Number [facility] Department [place] [address] [place] [address] * Tacrolimus level trough (06/10/2024 4:14 AM CDT) Tacrolimus trough 9.6 ng/mL Comment: Interpretive Data Testing performed by liquid chromatography-tandem mass spectrometry. Therapeutic concentrations vary depending on type of transplanted organ and time elapsed since transplant. Typical trough concentrations range from 5-15 ng/mL. This test was developed and its performance characteristics determined by the [facility] consistent with CLIA requirements. This test has not been cleared or approved by the [place] Food and Drug administration. Current interpretive data last reviewed 2019. Blood 06/10/2024 4:14 AM CDT 06/10/2024 4:32 AM CDT us Patricia Davidson MD PhD LAB BLOOD ORDERABLES Final Result [facility] [place] [address] * (ABNORMAL) Renal function panel (06/10/2024 4:14 AM CDT) Sodium 142 135 - 145 mmol/L Potassium, pl 5.6(H) 3.3 - 4.9 mmol/L [facility] Comment:Hemolyzed; Potassium value may be falsely elevated by as much as 0.3-0.5 mmol/L. Suggest redraw and reanalysis. Chloride 112(H) 97 - 110 mmol/L [facility] CO2 24 22 - 32 mmol/L [facility] Anion gap 6 2 - 15 mmol/L [facility] BUN 29(H) 6 - 25 mg/dL [facility] Creatinine 2.11(H) 0.60 - 1.10 mg/dL [facility] Glucose 158 70 - 199 mg/dL [facility] Comment: Interpretive Data Fasting glucose >/= 126 [...] 2022. Calcium 9.1 8.5 - 10.3 mg/dL [facility] Phosphorus, pl 3.7 2.3 - 4.5 mg/dL [facility] Albumin 3.6 3.5 - 5.0 g/dL [facility] Blood 06/10/2024 4:14 AM CDT 06/10/2024 4:32 AM CDT us Patricia Davidson MD PhD LAB BLOOD ORDERABLES Final Result Performing Organization Address City/[facility]/ZIP Co de Phone Number [facility] [place] [address] [place] [address] * (ABNORMAL) POCT glucose (06/10/2024 2:27 AM CDT) Glucose, POC 210(H) 70 - 199 mg/dL Blood 06/10/2024 2:27 AM CDT 06/10/2024 2:27 AM CDT Martha Butterfield MD LAB POCT ORDERABLES - DEVICE Final Result Performing Organization Address [facility] Co de Phone Number [facility] [address] [place] [address] * (ABNORMAL) POCT glucose (06/10/2024 1:25 AM CDT) Glucose, POC 277(H) 70 - 199 mg/dL Blood 06/10/2024 1:25 AM CDT 06/10/2024 1:25 AM CDT Martha Butterfield MD LAB POCT ORDERABLES - DEVICE Final Result Performing Organization Address City/[facility] Co de Phone Number [facility] [address] [place] [address] * POCT glucose (06/10/2024 12:24 AM CDT) Glucose, POC 138 70 - 199 mg/dL Blood 06/10/2024 12:2 4 AM CDT 06/10/2024 12:24 AM CDT Martha Butterfield MD LAB POCT ORDERABLES - DEVICE Final Result Performing Organization Address [facility] Co de Phone Number [facility] Department [place] [address] * ECG 12 lead (06/10/2024 12:20 AM CDT) [facility] Ventricular Rate EKG/Min 65 BPM [facility] Atrial Rate [address] [facility] DC-Interval (MSEC) [address] [facility] QRS-Interval (MSEC) [address] [facility] QT-Interval (MSEC) [address] [facility] QTc [address] [facility] P [place] -[address] [facility] R [place] -[address] [facility] T [place] [address] [facility] Diagnosis Normal sinus rhythm Low voltage [...] Septal leads Confirmed by BRODIE LEIGH M.D ([id number]) on 06/11/2024 10:14:[address] [facility] 06/10/2024 12:2 0 AM CDT 06/11/2024 10:14 AM CDT Martha Butterfield MD ECG ORDERABLES Final Result Performing Organization Address [facility]/ZIP Co de Phone Number [facility] [place] [facility] * (ABNORMAL) Potassium, whole blood (06/09/2024 11:26 PM CDT) Potassium, bld 5.7(H) 3.3 - 4.9 mmol/L Blood 06/09/2024 11:2 6 PM CDT 06/09/2024 11:37 PM CDT Martha Butterfield MD LAB BLOOD ORDERABLES F inal Result Performing Organization Address [facility] Co de Phone Number [facility]K [facility] [place] [address] [place] [address] * (ABNORMAL) eGFR (06/09/2024 6:33 PM CDT) [...] ORDERABLES F inal Result Performing Organization Address City/[facility]/ZIP Co de Phone Number [facility] [place] [address] [place] [address] * (ABNORMAL) Renal function panel (06/09/2024 6:33 PM CDT) Sodium 141 135 - 145 mmol/L Potassium, pl 5.5(H) 3.3 - 4.9 mmol/L [facility] Comment:Hemolyzed; Potassium value may be falsely elevated by as much as 0.3-0.5 mmol/L. Suggest redraw and reanalysis. Chloride 112(H) 97 - 110 mmol/L [facility] CO2 17(L) 22 - 32 mmol/L [facility] Anion gap 12 2 - 15 mmol/L [facility] BUN 32(H) 6 - 25 mg/dL [facility] Creatinine 2.08(H) 0.60 - 1.10 mg/dL [facility] Glucose 111 70 - 199 mg/dL [facility] Comment: Interpretive Data Fasting glucose >/= 126 [...] 2022. Calcium 8.7 8.5 - 10.3 mg/dL [facility] Phosphorus, pl 4.0 2.3 - 4.5 mg/dL [facility] Albumin 3.1(L) 3.5 - 5.0 g/dL [facility] Blood 06/09/2024 6:33 PM CDT 06/09/2024 6:48 PM CDT us Martha Butterfield MD LAB BLOOD ORDERABLES F inal Result [facility] [place] [address] * (ABNORMAL) eGFR (06/09/2024 5:12 AM CDT) [...] MD PhD LAB BLOOD ORDERABLES Final Result [facility] [place] [address] * Differential, auto (06/09/2024 5:12 AM CDT) Pathologist [facility] Neutrophil abs 2.5 1.5 - 6.5 K/cumm Imm gran abs 0.0 0.0 - 0.1 K/cumm [facility] Lymphocyte abs 1.0 0.8 - 3.3 K/cumm [facility] Monocyte abs 0.4 0.2 - 0.8 K/cumm [facility] Eosinophil abs 0.2 0.0 - 0.5 K/cumm [facility] Basophil abs 0.0 0.0 - 0.1 K/cumm [facility] Neutrophil pct 61.7 % [facility] Comment: Interpretive Data Percent cell count reference ranges are not reported, since discordance with absolute values may lead to misinterpretation of CBC data. Current Interpretive Data was last revised on 2017. Imm gran pct 0.2 % [facility] Comment: Interpretive Data Percent cell count reference ranges are not reported, since discordance with absolute values may lead to misinterpretation of CBC data. Current Interpretive Data was last revised on 2017. [facility] pct 25.2 % [facility] Comment: Interpretive Data Percent cell count reference ranges are not reported, since discordance with absolute values may lead to misinterpretation of CBC data. Current Interpretive Data was last revised on 2017. Monocyte pct 8.8 % [facility] Comment: Interpretive Data Percent cell count reference ranges are not reported, since discordance with absolute values may lead to misinterpretation of CBC data. Current Interpretive Data was last revised on 2017. Eosinophil pct 3.9 % [facility] Comment: Interpretive Data Percent cell count reference ranges are not reported, since discordance with absolute values may lead to misinterpretation of CBC data. Current Interpretive Data was last revised on 2017. Basophil pct 0.2 % [facility] Comment: Interpretive Data Percent cell count reference ranges are not reported, since discordance with absolute values may lead to misinterpretation of CBC data. Current Interpretive Data was last revised on 2017. Blood 06/09/2024 5:12 AM CDT 06/09/2024 5:43 AM CDT Martha Butterfield MD LAB BLOOD ORDERABLES F inal Result [facility] Department [place] [address] * Tacrolimus level trough (06/09/2024 5:12 AM CDT) Tacrolimus trough 7.5 ng/mL Comment: Interpretive Data Testing performed by liquid chromatography-tandem mass spectrometry. Therapeutic concentrations vary depending on type of transplanted organ and time elapsed since transplant. Typical trough concentrations range from 5-15 ng/mL. This test was developed and its performance characteristics determined by the [facility] consistent with CLIA requirements. This test has not been cleared or approved by the US Food and Drug administration. Current interpretive data last reviewed 2019. Blood 06/09/2024 5:12 AM CDT 06/09/2024 5:43 AM CDT us Patricia Davidson MD PhD LAB BLOOD ORDERABLES Final Result Performing Organization Address [facility] Co de Phone Number [facility] Department [place] [address] * (ABNORMAL) CBC with auto differential (06/09/2024 5:12 AM CDT) Pathologist [facility] WBC 4.1 3.8 - 9.9 K/cumm Hgb 10.9(L) 11.9 - 15.5 g/dL [facility] Hct 32.1(L) 35.6 - 45.5 % [facility] Plt 104(L) 150 - 400 K/cumm [facility] MPV 11.5 9.1 - 12.3 fL [facility] RBC 3.05(L) 3.90 - 5.20 M/cumm [facility] MCV 105.2(H) 81.3 - 96.4 fL [facility] MCH 35.7(H) 27.1 - 33.3 pg [facility] MCHC 34.0 32.3 - 35.7 g/dL [facility] RDW CV 14.7 11.1 - 14.9 % [facility] RDW SD 55.7(H) 35.7 - 48.1 fL [facility] NRBC abs 0.00 0.00 - 0.01 K/cumm [facility] Blood 06/09/2024 5:12 AM CDT 06/09/2024 5:43 AM CDT us Martha Butterfield MD LAB BLOOD ORDERABLES F inal Result Performing Organization Address City/[facility]/ZIP Co de Phone Number [facility] Department [place] [address] * (ABNORMAL) Renal function panel (06/09/2024 5:12 AM CDT) Sodium 144 135 - 145 mmol/L Potassium, pl 5.1(H) 3.3 - 4.9 mmol/L [facility] Chloride 111(H) 97 - 110 mmol/L [facility] CO2 23 22 - 32 mmol/L [facility] Anion gap 10 2 - 15 mmol/L [facility] BUN 33(H) 6 - 25 mg/dL [facility] Creatinine 2.08(H) 0.60 - 1.10 mg/dL [facility] Glucose 104 70 - 199 mg/dL [facility] Comment: Interpretive Data Fasting glucose >/= 126 [...] 2022. Calcium 8.7 8.5 - 10.3 mg/dL [facility] Phosphorus, pl 4.4 2.3 - 4.5 mg/dL [facility] Albumin 3.5 3.5 - 5.0 g/dL [facility] Blood 06/09/2024 5:12 AM CDT 06/09/2024 5:43 AM CDT us Patricia Davidson MD PhD LAB BLOOD ORDERABLES Final Result [facility] Department [place] [address] * (ABNORMAL) Potassium, whole blood (06/08/2024 8:37 AM CDT) Potassium, bld 5.0(H) 3.3 - 4.9 mmol/L Blood 06/08/2024 8:37 AM CDT 06/08/2024 9:17 AM CDT us Martha Butterfield MD LAB BLOOD ORDERABLES F inal Result Performing Organization Address [facility] de Phone Number [facility] [place] [address] * (ABNORMAL) eGFR (06/08/2024 5:40 AM CDT) [...] BLOOD ORDERABLES Final Result Performing Organization Address City/[facility] Co de Phone Number [facility] [place] [address] * Tacrolimus level trough (06/08/2024 5:40 AM CDT) Tacrolimus trough 6.6 ng/mL Comment: Interpretive Data Testing performed by liquid chromatography-tandem mass spectrometry. Therapeutic concentrations vary depending on type of transplanted organ and time elapsed since transplant. Typical trough concentrations range from 5-15 ng/mL. This test was developed and its performance characteristics determined by the [facility] consistent with CLIA requirements. This test has not been cleared or approved by the US Food and Drug administration. Current interpretive data last reviewed 2019. Blood 06/08/2024 5:40 AM CDT 06/08/2024 6:19 AM CDT us Patricia Davidson MD PhD LAB BLOOD ORDERABLES Final Result [facility] Department [place] [address] * (ABNORMAL) Renal function panel (06/08/2024 5:40 AM CDT) Sodium 144 135 - 145 mmol/L Potassium, pl 5.1(H) 3.3 - 4.9 mmol/L [facility] Chloride 114(H) 97 - 110 mmol/L [facility] CO2 23 22 - 32 mmol/L [facility] Anion gap 7 2 - 15 mmol/L [facility] BUN 31(H) 6 - 25 mg/dL [facility] Creatinine 2.07(H) 0.60 - 1.10 mg/dL [facility] Glucose 100 70 - 199 mg/dL [facility] Comment: Interpretive Data Fasting glucose >/= 126 [...] 2022. Calcium 8.7 8.5 - 10.3 mg/dL [facility] Phosphorus, pl 4.5 2.3 - 4.5 mg/dL [facility] Albumin 3.3(L) 3.5 - 5.0 g/dL [facility] Blood 06/08/2024 5:40 AM CDT 06/08/2024 6:19 AM CDT Patricia Davidson MD PhD LAB BLOOD ORDERABLES Final Result Performing Organization Address City/[facility] Co de Phone Number [facility] Department [place] [address] * (ABNORMAL) eGFR (06/07/2024 5:17 AM CDT) Pathologist [facility] eGFR 33(L) >=60 mL/min/1. 73 m2 Comment: [...] BLOOD ORDERABLES Final Result Performing Organization Address City/[facility]/ZIP Co de Phone Number [facility] Department [place] [address] * Differential, auto (06/07/2024 5:17 AM CDT) [facility] Neutrophil abs 2.9 1.5 - 6.5 K/cumm Imm gran abs 0.0 0.0 - 0.1 K/cumm [facility] Lymphocyte abs 1.1 0.8 - 3.3 K/cumm [facility] Monocyte abs 0.3 0.2 - 0.8 K/cumm [facility] Eosinophil abs 0.2 0.0 - 0.5 K/cumm [facility] Basophil abs 0.0 0.0 - 0.1 K/cumm [facility] Neutrophil pct 64.2 % [facility] Comment: Interpretive Data Percent cell count reference ranges are not reported, since discordance with absolute values may lead to misinterpretation of CBC data. Current Interpretive Data was last revised on 2017. Imm gran pct 0.2 % [facility] Comment: Interpretive Data Percent cell count reference ranges are not reported, since discordance with absolute values may lead to misinterpretation of CBC data. Current Interpretive Data was last revised on 2017. Lymphocyte pct 24.2 % [facility] Comment: Interpretive Data Percent cell count reference ranges are not reported, since discordance with absolute values may lead to misinterpretation of CBC data. Current Interpretive Data was last revised on 2017. Monocyte pct 7.2 % [facility] Comment: Interpretive Data Percent cell count reference ranges are not reported, since discordance with absolute values may lead to misinterpretation of CBC data. Current Interpretive Data was last revised on 2017. Eosinophil pct 4.0 % [facility] Comment: Interpretive Data Percent cell count reference ranges are not reported, since discordance with absolute values may lead to misinterpretation of CBC data. Current Interpretive Data was last revised on 2017. Basophil pct 0.2 % [facility] Comment: Interpretive Data Percent cell count reference ranges are not reported, since discordance with absolute values may lead to misinterpretation of CBC data. Current Interpretive Data was last revised on 2017. Blood 06/07/2024 5:17 AM CDT 06/07/2024 6:14 AM CDT us Martha Butterfield MD LAB BLOOD ORDERABLES F inal Result [facility] Department [place] [address] * Tacrolimus level trough (06/07/2024 5:17 AM CDT) [facility] Tacrolimus trough 6.2 ng/mL Comment: Interpretive Data Testing performed by liquid chromatography-tandem mass spectrometry. Therapeutic concentrations vary depending on type of transplanted organ and time elapsed since transplant. Typical trough concentrations range from 5-15 ng/mL. This test was developed and its performance characteristics determined by the [facility] consistent with CLIA requirements. This test has not been cleared or approved by the US Food and Drug administration. Current interpretive data last reviewed 2019. Blood 06/07/2024 5:17 AM CDT 06/07/2024 6:14 AM CDT us Patricia Davidson MD PhD LAB BLOOD ORDERABLES Final Result [facility] Department [place] [address] * (ABNORMAL) CBC with auto differential (06/07/2024 5:17 AM CDT) [facility] WBC 4.5 3.8 - 9.9 K/cumm Hgb 10.7(L) 11.9 - 15.5 g/dL [facility] Hct 31.3(L) 35.6 - 45.5 % [facility] Plt 100(L) 150 - 400 K/cumm [facility] MPV 11.8 9.1 - 12.3 fL [facility] RBC 2.96(L) 3.90 - 5.20 M/cumm [facility] MCV 105.7(H) 81.3 - 96.4 fL [facility] MCH 36.1(H) 27.1 - 33.3 pg [facility] MCHC 34.2 32.3 - 35.7 g/dL [facility] RDW CV 14.2 11.1 - 14.9 % [facility] RDW SD 53.7(H) 35.7 - 48.1 fL [facility] NRBC abs 0.00 0.00 - 0.01 K/cumm [facility] Blood 06/07/2024 5:17 AM CDT 06/07/2024 6:14 AM CDT Martha Butterfield MD LAB BLOOD ORDERABLES F inal Result [facility] Department [place] [address] * (ABNORMAL) Renal function panel (06/07/2024 5:17 AM CDT) Sodium 137 135 - 145 mmol/L Potassium, pl 4.9 3.3 - 4.9 mmol/L [facility] Chloride 108 97 - 110 mmol/L [facility] CO2 21(L) 22 - 32 mmol/L [facility] Anion gap 8 2 - 15 mmol/L [facility] BUN 28(H) 6 - 25 mg/dL [facility] Creatinine 1.92(H) 0.60 - 1.10 mg/dL [facility] Glucose 125 70 - 199 mg/dL [facility] Comment: Interpretive Data Fasting glucose >/= 126 [...] 2022. Calcium 8.1(L) 8.5 - 10.3 mg/dL [facility] Phosphorus, pl 3.8 2.3 - 4.5 mg/dL [facility] Albumin 3.4(L) 3.5 - 5.0 g/dL [facility] Blood 06/07/2024 5:17 AM CDT 06/07/2024 6:13 AM CDT us Patricia Davidson MD PhD LAB BLOOD ORDERABLES Final Result [facility] Department [place] [address] * Potassium, whole blood (06/06/2024 11:29 AM CDT) Potassium, bld 4.9 3.3 - 4.9 mmol/L Blood 06/06/2024 11:2 9 AM CDT 06/06/2024 12:20 PM CDT Martha Butterfield MD LAB BLOOD ORDERABLES F inal Result Performing Organization Address City/[facility] Co de Phone Number [facility] [place] [address] * (ABNORMAL) eGFR (06/06/2024 4:28 AM CDT) [...] BLOOD ORDERABLES Final Result Performing Organization Address [facility] Co de Phone Number [facility] [place] [address] [place] [address] * Tacrolimus level trough (06/06/2024 4:28 AM CDT) Pathologist [facility] Tacrolimus trough 5.9 ng/mL Comment: Interpretive Data Testing performed by liquid chromatography-tandem mass spectrometry. Therapeutic concentrations vary depending on type of transplanted organ and time elapsed since transplant. Typical trough concentrations range from 5-15 ng/mL. This test was developed and its performance characteristics determined by the [facility] consistent with CLIA requirements. This test has not been cleared or approved by the [place] Food and Drug administration. Current interpretive data last reviewed 2019. Blood 06/06/2024 4:28 AM CDT 06/06/2024 5:44 AM CDT Result [facility] Patricia Davidson MD PhD LAB BLOOD ORDERABLES Final Result Performing Organization Address [facility] Co de Phone Number [facility] Department [place] [address] * (ABNORMAL) Renal function panel (06/06/2024 4:28 AM CDT) Pathologist [facility] Sodium 143 135 - 145 mmol/L Potassium, pl 5.3(H) 3.3 - 4.9 mmol/L [facility] Chloride 113(H) 97 - 110 mmol/L [facility] CO2 23 22 - 32 mmol/L [facility] Anion gap 7 2 - 15 mmol/L [facility] BUN 30(H) 6 - 25 mg/dL [facility] Creatinine 1.99(H) 0.60 - 1.10 mg/dL [facility] Glucose 86 70 - 199 mg/dL [facility] Comment: Interpretive Data Fasting glucose >/= 126 [...] 2022. Calcium 8.5 8.5 - 10.3 mg/dL [facility] Phosphorus, pl 4.1 2.3 - 4.5 mg/dL [facility] Albumin 3.1(L) 3.5 - 5.0 g/dL [facility] Blood 06/06/2024 4:28 AM CDT 06/06/2024 5:36 AM CDT us Patricia Davidson MD PhD LAB BLOOD ORDERABLES Final Result [facility] Department [place] [address] * (ABNORMAL) eGFR (06/05/2024 5:49 AM CDT) [...] MD PhD LAB BLOOD ORDERABLES Final Result [facility] [place] [address] * Differential, auto (06/05/2024 5:49 AM CDT) Neutrophil abs 2.5 1.5 - 6.5 K/cumm Imm gran abs 0.0 0.0 - 0.1 K/cumm [facility] Lymphocyte abs 1.0 0.8 - 3.3 K/cumm [facility] Monocyte abs 0.4 0.2 - 0.8 K/cumm [facility] Eosinophil abs 0.1 0.0 - 0.5 K/cumm [facility] Basophil abs 0.0 0.0 - 0.1 K/cumm [facility] Neutrophil pct 62.5 % [facility] Comment: Interpretive Data Percent cell count reference ranges are not reported, since discordance with absolute values may lead to misinterpretation of CBC data. Current Interpretive Data was last revised on 2017. Imm gran pct 0.3 % [facility] Comment: Interpretive Data Percent cell count reference ranges are not reported, since discordance with absolute values may lead to misinterpretation of CBC data. Current Interpretive Data was last revised on 2017. Lymphocyte pct 24.3 % [facility] Comment: Interpretive Data Percent cell count reference ranges are not reported, since discordance with absolute values may lead to misinterpretation of CBC data. Current Interpretive Data was last revised on 2017. Monocyte pct 9.3 % [facility] Comment: Interpretive Data Percent cell count reference ranges are not reported, since discordance with absolute values may lead to misinterpretation of CBC data. Current Interpretive Data was last revised on 2017. Eosinophil pct 3.3 % [facility] Comment: Interpretive Data Percent cell count reference ranges are not reported, since discordance with absolute values may lead to misinterpretation of CBC data. Current Interpretive Data was last revised on 2017. Basophil pct 0.3 % [facility] Comment: Interpretive Data Percent cell count reference ranges are not reported, since discordance with absolute values may lead to misinterpretation of CBC data. Current Interpretive Data was last revised on 2017. Blood 06/05/2024 5:49 AM CDT 06/05/2024 6:48 AM CDT Patricia Davidson MD PhD LAB BLOOD ORDERABLES Final Result Performing Organization Address [facility] de Phone Number [facility] [place] [address] * Tacrolimus level trough (06/05/2024 5:49 AM CDT) [facility] Tacrolimus trough 5.9 ng/mL Comment: Interpretive Data Testing performed by liquid chromatography-tandem mass spectrometry. Therapeutic concentrations vary depending on type of transplanted organ and time elapsed since transplant. Typical trough concentrations range from 5-15 ng/mL. This test was developed and its performance characteristics determined by the [facility] consistent with CLIA requirements. This test has not been cleared or approved by the [place] Food and Drug administration. Current interpretive data last reviewed 2019. Blood 06/05/2024 5:49 AM CDT 06/05/2024 6:48 AM CDT Patricia Davidson MD PhD LAB BLOOD ORDERABLES Final Result Performing Organization Address [facility] de Phone Number [facility] [place] [address] * (ABNORMAL) CBC with auto differential (06/05/2024 5:49 AM CDT) [facility] WBC 4.0 3.8 - 9.9 K/cumm Hgb 10.9(L) 11.9 - 15.5 g/dL [facility] Hct 31.7(L) 35.6 - 45.5 % [facility] Plt 102(L) 150 - 400 K/cumm [facility] MPV 11.6 9.1 - 12.3 fL [facility] RBC 3.05(L) 3.90 - 5.20 M/cumm [facility] MCV 103.9(H) 81.3 - 96.4 fL [facility] MCH 35.7(H) 27.1 - 33.3 pg [facility] MCHC 34.4 32.3 - 35.7 g/dL [facility] RDW CV 14.0 11.1 - 14.9 % [facility] RDW SD 52.3(H) 35.7 - 48.1 fL [facility] NRBC abs 0.00 0.00 - 0.01 K/cumm [facility] Blood 06/05/2024 5:49 AM CDT 06/05/2024 6:48 AM CDT us Patricia Davidson MD PhD LAB BLOOD ORDERABLES Final Result [facility] [place] [address] * (ABNORMAL) Renal function panel (06/05/2024 5:49 AM CDT) Sodium 140 135 - 145 mmol/L Potassium, pl 4.6 3.3 - 4.9 mmol/L [facility] Chloride 109 97 - 110 mmol/L [facility] CO2 22 22 - 32 mmol/L [facility] Anion gap 9 2 - 15 mmol/L [facility] BUN 29(H) 6 - 25 mg/dL [facility] Creatinine 1.99(H) 0.60 - 1.10 mg/dL [facility] Glucose 98 70 - 199 mg/dL [facility] Comment: Interpretive Data Fasting glucose >/= 126 [...] 2022. Calcium 8.6 8.5 - 10.3 mg/dL [facility] Phosphorus, pl 4.3 2.3 - 4.5 mg/dL [facility] Albumin 3.5 3.5 - 5.0 g/dL [facility] Blood 06/05/2024 5:49 AM CDT 06/05/2024 6:48 AM CDT us Patricia Daivdson MD PhD LAB BLOOD ORDERABLES Final Result [facility] [place] [address] * ECG 12 lead (06/04/2024 5:41 AM CDT) Ventricular Rate EKG/Min 67 BPM [facility] Atrial Rate [address] [facility] DC-Interval (MSEC) [address] [facility] QRS-Interval (MSEC) [address] [facility] QT-Interval (MSEC) [address] [facility] QTc [address] [facility] P [place] [address] [facility] R [place] -[address] [facility] T [place] [address] 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 06/04/2024 5:41 AM CDT 06/05/2024 5:57 AM CDT Pineda Barrios MD ECG ORDERABLES Final Result Performing Organization Address City/[facility]/ZIP Co de Phone Number [facility] * (ABNORMAL) eGFR (06/04/2024 5:10 AM CDT) Pathologist [facility] eGFR 32(L) >=60 mL/min/1. 73 m2 Comment: [...] MD PhD LAB BLOOD ORDERABLES Final Result [facility] [place] [address] * Differential, auto (06/04/2024 5:10 AM CDT) Pathologist [facility] Neutrophil abs 3.1 1.5 - 6.5 K/cumm Imm gran abs 0.0 0.0 - 0.1 K/cumm [facility] Lymphocyte abs 1.3 0.8 - 3.3 K/cumm [facility] Monocyte abs 0.5 0.2 - 0.8 K/cumm [facility] Eosinophil abs 0.2 0.0 - 0.5 K/cumm [facility] Basophil abs 0.0 0.0 - 0.1 K/cumm [facility] Neutrophil pct 61.7 % [facility] Comment: Interpretive Data Percent cell count reference ranges are not reported, since discordance with absolute values may lead to misinterpretation of CBC data. Current Interpretive Data was last revised on 2017. Imm gran pct 0.4 % [facility] Comment: Interpretive Data Percent cell count reference ranges are not reported, since discordance with absolute values may lead to misinterpretation of CBC data. Current Interpretive Data was last revised on 2017. Lymphocyte pct 25.2 % [facility] Comment: Interpretive Data Percent cell count reference ranges are not reported, since discordance with absolute values may lead to misinterpretation of CBC data. Current Interpretive Data was last revised on 2017. Monocyte pct 9.1 % [facility] Comment: Interpretive Data Percent cell count reference ranges are not reported, since discordance with absolute values may lead to misinterpretation of CBC data. Current Interpretive Data was last revised on 2017. Eosinophil pct 3.0 % [facility] Comment: Interpretive Data Percent cell count reference ranges are not reported, since discordance with absolute values may lead to misinterpretation of CBC data. Current Interpretive Data was last revised on 2017. Basophil pct 0.6 % [facility] Comment: Interpretive Data Percent cell count reference ranges are not reported, since discordance with absolute values may lead to misinterpretation of CBC data. Current Interpretive Data was last revised on 2017. Blood 06/04/2024 5:10 AM CDT 06/04/2024 6:22 AM CDT Patricia Davidson MD PhD LAB BLOOD ORDERABLES Final Result [facility] [place] [address] * Tacrolimus level trough (06/04/2024 5:10 AM CDT) Tacrolimus trough 6.1 ng/mL Comment: Interpretive Data Testing performed by liquid chromatography-tandem mass spectrometry. Therapeutic concentrations vary depending on type of transplanted organ and time elapsed since transplant. Typical trough concentrations range from 5-15 ng/mL. This test was developed and its performance characteristics determined by the [facility] consistent with CLIA requirements. This test has not been cleared or approved by the US Food and Drug administration. Current interpretive data last reviewed 2019. Blood 06/04/2024 5:10 AM CDT 06/04/2024 6:22 AM CDT us Patricia Davidson MD PhD LAB BLOOD ORDERABLES Final Result Performing Organization Address [facility] Co de Phone Number [facility] Department [place] [address] * (ABNORMAL) CBC with auto differential (06/04/2024 5:10 AM CDT) Pathologist [facility] WBC 5.0 3.8 - 9.9 K/cumm Hgb 11.2(L) 11.9 - 15.5 g/dL [facility] Hct 32.3(L) 35.6 - 45.5 % [facility] Plt 102(L) 150 - 400 K/cumm [facility] MPV 11.6 9.1 - 12.3 fL [facility] RBC 3.13(L) 3.90 - 5.20 M/cumm [facility] MCV 103.2(H) 81.3 - 96.4 fL [facility] MCH 35.8(H) 27.1 - 33.3 pg [facility] MCHC 34.7 32.3 - 35.7 g/dL [facility] RDW CV 13.7 11.1 - 14.9 % [facility] RDW SD 51.2(H) 35.7 - 48.1 fL [facility] NRBC abs 0.00 0.00 - 0.01 K/cumm [facility] Blood 06/04/2024 5:10 AM CDT 06/04/2024 6:22 AM CDT us Patricia Davidson MD PhD LAB BLOOD ORDERABLES Final Result Performing Organization Address City/[facility]/ZIP Co de Phone Number [facility] Department [place] [address] [place] [address] * (ABNORMAL) Renal function panel (06/04/2024 5:10 AM CDT) Pathologist [facility] Sodium 144 135 - 145 mmol/L Potassium, pl 4.8 3.3 - 4.9 mmol/L [facility] Chloride 112(H) 97 - 110 mmol/L [facility] CO2 23 22 - 32 mmol/L [facility] Anion gap 9 2 - 15 mmol/L [facility] BUN 25 6 - 25 mg/dL [facility] Creatinine 1.98(H) 0.60 - 1.10 mg/dL [facility] Glucose 81 70 - 199 mg/dL [facility] Comment: Interpretive Data Fasting glucose >/= 126 [...] 2022. Calcium 8.9 8.5 - 10.3 mg/dL [facility] Phosphorus, pl 4.3 2.3 - 4.5 mg/dL [facility] Albumin 3.4(L) 3.5 - 5.0 g/dL [facility] Blood 06/04/2024 5:10 AM CDT 06/04/2024 6:23 AM CDT us Patricia Davidson MD PhD LAB BLOOD ORDERABLES Final Result [facility] [place] [address] * Folate (06/04/2024 12:39 AM CDT) [facility] Signature Folic acid See Comment >=5.0 ng/mL Comment: Credited; Hemolyzed Specimen Telephone report made to: Luz Maria Iyer RN on 06/04/2024 08:49:44 CDT by SAUD . Blood 06/04/2024 12:3 9 AM CDT 06/04/2024 1:24 AM CDT us Shea Babcock MD LAB BLOOD ORDERABLE S Final Result Performing Organization Address [facility] Co de Phone Number [facility] Department [place] [address] * Protein / creatinine ratio, urine, random (06/03/2024 6:15 PM CDT) Pathologist [facility] Protein, ur, quant <5.0 mg/dL Comment: Interpretive Data No reference range established. Current interpretive data was last revised 2018. Creatinine Ur 39.1 mg/dL [facility] Comment: Interpretive Data No reference range established. Current interpretive data was last revised 2018. Protein/creatinin e ratio <127.9 0.0 - 180.0 mg/g CR [facility] Urine 06/03/2024 6:15 PM CDT 06/03/2024 7:42 PM CDT us Pineda Barrios MD LAB URINE ORDE RABLES Final Result Performing Organization Address [facility] Co de Phone Number [facility] Department [place] [address] * (ABNORMAL) eGFR (06/03/2024 8:54 AM CDT) Pathologist [facility] eGFR 33(L) >=60 mL/min/1. 73 m2 Comment: [...] MD PhD LAB BLOOD ORDERABLES Final Result [facility] Department [place] [address] * Differential, auto (06/03/2024 8:54 AM CDT) Neutrophil abs 2.8 1.5 - 6.5 K/cumm Imm gran abs 0.0 0.0 - 0.1 K/cumm [facility] Lymphocyte abs 1.3 0.8 - 3.3 K/cumm [facility] Monocyte abs 0.4 0.2 - 0.8 K/cumm [facility] Eosinophil abs 0.2 0.0 - 0.5 K/cumm [facility] Basophil abs 0.0 0.0 - 0.1 K/cumm [facility] Neutrophil pct 59.1 % [facility] Comment: Interpretive Data Percent cell count reference ranges are not reported, since discordance with absolute values may lead to misinterpretation of CBC data. Current Interpretive Data was last revised on 2017. Imm gran pct 0.4 % [facility] Comment: Interpretive Data Percent cell count reference ranges are not reported, since discordance with absolute values may lead to misinterpretation of CBC data. Current Interpretive Data was last revised on 2017. Lymphocyte pct 27.4 % [facility] Comment: Interpretive Data Percent cell count reference ranges are not reported, since discordance with absolute values may lead to misinterpretation of CBC data. Current Interpretive Data was last revised on 2017. Monocyte pct 9.1 % [facility] Comment: Interpretive Data Percent cell count reference ranges are not reported, since discordance with absolute values may lead to misinterpretation of CBC data. Current Interpretive Data was last revised on 2017. Eosinophil pct 3.8 % [facility] Comment: Interpretive Data Percent cell count reference ranges are not reported, since discordance with absolute values may lead to misinterpretation of CBC data. Current Interpretive Data was last revised on 2017. Basophil pct 0.2 % [facility] Comment: Interpretive Data Percent cell count reference ranges are not reported, since discordance with absolute values may lead to misinterpretation of CBC data. Current Interpretive Data was last revised on 2017. Blood 06/03/2024 8:54 AM CDT 06/03/2024 9:23 AM CDT Patricia Davidson MD PhD LAB BLOOD ORDERABLES Final Result Performing Organization Address [facility] de Phone Number [facility] [place] [address] * Tacrolimus level trough (06/03/2024 8:54 AM CDT) Pathologist [facility] Tacrolimus trough 4.9 ng/mL Comment: Interpretive Data Testing performed by liquid chromatography-tandem mass spectrometry. Therapeutic concentrations vary depending on type of transplanted organ and time elapsed since transplant. Typical trough concentrations range from 5-15 ng/mL. This test was developed and its performance characteristics determined by the [facility] consistent with CLIA requirements. This test has not been cleared or approved by the US Food and Drug administration. Current interpretive data last reviewed 2019. Blood 06/03/2024 8:54 AM CDT 06/03/2024 9:22 AM CDT Patricia Davidson MD PhD LAB BLOOD ORDERABLES Final Result Performing Organization Address [facility] de Phone Number [facility] Department [place] [address] * (ABNORMAL) CBC with auto differential (06/03/2024 8:54 AM CDT) [facility] WBC 4.7 3.8 - 9.9 K/cumm Hgb 11.6(L) 11.9 - 15.5 g/dL [facility] Hct 32.6(L) 35.6 - 45.5 % [facility] Plt 121(L) 150 - 400 K/cumm [facility] MPV 11.0 9.1 - 12.3 fL [facility] RBC 3.19(L) 3.90 - 5.20 M/cumm [facility] MCV 102.2(H) 81.3 - 96.4 fL [facility] MCH 36.4(H) 27.1 - 33.3 pg [facility] MCHC 35.6 32.3 - 35.7 g/dL [facility] RDW CV 13.5 11.1 - 14.9 % [facility] RDW SD 49.6(H) 35.7 - 48.1 fL [facility] NRBC abs 0.00 0.00 - 0.01 K/cumm [facility] Blood 06/03/2024 8:54 AM CDT 06/03/2024 9:23 AM CDT us Patricia Davidson MD PhD LAB BLOOD ORDERABLES Final Result [facility] Department [place] [employer] [place] [address] * CRP (acute phase) (06/03/2024 8:54 AM CDT) [facility] CRP 6.5 <=10.0 mg/L Blood 06/03/2024 8:54 AM CDT 06/03/2024 9:25 AM CDT us Pineda Barrios MD LAB BLOOD ORDE RABLES Final Result Performing Organization Address City/[facility]/ZIP Co de Phone Number [facility] Department [place] [address] * (ABNORMAL) Renal function panel (06/03/2024 8:54 AM CDT) Pathologist [facility] Sodium 143 135 - 145 mmol/L Potassium, pl 4.6 3.3 - 4.9 mmol/L [facility] Chloride 110 97 - 110 mmol/L [facility] CO2 23 22 - 32 mmol/L [facility] Anion gap 10 2 - 15 mmol/L [facility] BUN 21 6 - 25 mg/dL [facility] Creatinine 1.93(H) 0.60 - 1.10 mg/dL [facility] Glucose 125 70 - 199 mg/dL [facility] Comment: Interpretive Data Fasting glucose >/= 126 [...] 2022. Calcium 9.1 8.5 - 10.3 mg/dL [facility] Phosphorus, pl 3.5 2.3 - 4.5 mg/dL [facility] Albumin 3.5 3.5 - 5.0 g/dL [facility] Blood 06/03/2024 8:54 AM CDT 06/03/2024 9:25 AM CDT us Patricia Davidson MD PhD LAB BLOOD ORDERABLES Final Result [facility] [place] [address] * (ABNORMAL) eGFR (06/03/2024 2:22 AM CDT) Pathologist [facility] eGFR 34(L) >=60 mL/min/1. 73 m2 Comment: [...] MD LAB BLOOD RICO VALDEZ Final Result [facility] Department [place] [address] * Differential, auto (06/03/2024 2:22 AM CDT) Neutrophil abs 2.5 1.5 - 6.5 K/cumm Imm gran abs 0.0 0.0 - 0.1 K/cumm [facility] Lymphocyte abs 1.2 0.8 - 3.3 K/cumm [facility] Monocyte abs 0.4 0.2 - 0.8 K/cumm [facility] Eosinophil abs 0.1 0.0 - 0.5 K/cumm [facility] Basophil abs 0.0 0.0 - 0.1 K/cumm [facility] Neutrophil pct 58.3 % [facility] Comment: Interpretive Data Percent cell count reference ranges are not reported, since discordance with absolute values may lead to misinterpretation of CBC data. Current Interpretive Data was last revised on 2017. Imm gran pct 0.5 % [facility] Comment: Interpretive Data Percent cell count reference ranges are not reported, since discordance with absolute values may lead to misinterpretation of CBC data. Current Interpretive Data was last revised on 2017. Lymphocyte pct 28.7 % [facility] Comment: Interpretive Data Percent cell count reference ranges are not reported, since discordance with absolute values may lead to misinterpretation of CBC data. Current Interpretive Data was last revised on 2017. Monocyte pct 9.2 % [facility] Comment: Interpretive Data Percent cell count reference ranges are not reported, since discordance with absolute values may lead to misinterpretation of CBC data. Current Interpretive Data was last revised on 2017. Eosinophil pct 3.1 % [facility] Comment: Interpretive Data Percent cell count reference ranges are not reported, since discordance with absolute values may lead to misinterpretation of CBC data. Current Interpretive Data was last revised on 2017. Basophil pct 0.2 % [facility] Comment: Interpretive Data Percent cell count reference ranges are not reported, since discordance with absolute values may lead to misinterpretation of CBC data. Current Interpretive Data was last revised on 2017. Blood 06/03/2024 2:22 AM CDT 06/03/2024 2:57 AM CDT us Pineda Barrios MD LAB BLOOD RICO VALDEZ Final Result [facility] Department [place] [address] * (ABNORMAL) Iron profile w/ IBC (06/03/2024 2:22 AM CDT) Iron 104 35 - 145 mcg/dL TIBC 192(L) 250 - 400 mcg/dL [facility] Transferrin saturation 54(H) 20 - 50 % [facility] Blood 06/03/2024 2:22 AM CDT 06/03/2024 2:57 AM CDT us Shea Babcock MD LAB BLOOD ORDERABLE S Final Result [facility] Department [place] [address] * (ABNORMAL) CBC with auto differential (06/03/2024 2:22 AM CDT) Pathologist [facility] WBC 4.2 3.8 - 9.9 K/cumm Hgb 11.5(L) 11.9 - 15.5 g/dL [facility] Hct 32.9(L) 35.6 - 45.5 % [facility] Plt 120(L) 150 - 400 K/cumm [facility] MPV 11.2 9.1 - 12.3 fL [facility] RBC 3.24(L) 3.90 - 5.20 M/cumm [facility] MCV 101.5(H) 81.3 - 96.4 fL [facility] MCH 35.5(H) 27.1 - 33.3 pg [facility] MCHC 35.0 32.3 - 35.7 g/dL [facility] RDW CV 13.4 11.1 - 14.9 % [facility] RDW SD 49.9(H) 35.7 - 48.1 fL [facility] NRBC abs 0.00 0.00 - 0.01 K/cumm [facility] Blood 06/03/2024 2:22 AM CDT 06/03/2024 2:57 AM CDT Pineda Barrios MD LAB BLOOD RICO VALDEZ Final Result [facility] [place] [address] * Tacrolimus level random (06/03/2024 2:22 AM CDT) Pathologist [facility] Tacrolimus random 6.3 ng/mL Comment: Interpretive Data Testing performed by liquid chromatography-tandem mass spectrometry. Therapeutic concentrations vary depending on type of transplanted organ and time elapsed since transplant. Typical trough concentrations range from 5-15 ng/mL. This test was developed and its performance characteristics determined by the [facility] consistent with CLIA requirements. This test has not been cleared or approved by the US Food and Drug administration. Current interpretive data last reviewed 2019. Blood 06/03/2024 2:22 AM CDT 06/03/2024 2:57 AM CDT Pineda Barrios MD LAB BLOOD ORDE COURTNEY Final Result Performing Organization Address City/[facility]/ZIP Co de Phone Number [facility] Department [place] [address] * TSH (06/03/2024 2:22 AM CDT) Thyroid Stimulating Hormone 1.91 0.30 - 4.20 mcIUnit/mL Blood 06/03/2024 2:22 AM CDT 06/03/2024 2:57 AM CDT Shea Babcock MD LAB BLOOD ORDERABLE S Final Result Performing Organization Address [facility] [place] [address] * (ABNORMAL) Ferritin (06/03/2024 2:22 AM CDT) Ferritin 213(H) 13 - 150 ng/mL Blood 06/03/2024 2:22 AM CDT 06/03/2024 2:57 AM CDT Shea Babcock MD LAB BLOOD ORDERABLE S Final Result Performing Organization Address City/[facility] Co de Phone Number [facility] [address] [place] [address] * Vitamin B12 (06/03/2024 2:22 AM CDT) Vitamin B12 749 230 - 1,250 pg/mL Blood 06/03/2024 2:22 AM CDT 06/03/2024 2:57 AM CDT us Shea Babcock MD LAB BLOOD ORDERABLE S Final Result [facility] Department [place] [address] * (ABNORMAL) Renal function panel (06/03/2024 2:22 AM CDT) Pathologist [facility] Sodium 144 135 - 145 mmol/L Potassium, pl 5.0(H) 3.3 - 4.9 mmol/L [facility] Chloride 111(H) 97 - 110 mmol/L [facility] CO2 25 22 - 32 mmol/L [facility] Anion gap 8 2 - 15 mmol/L [facility] BUN 23 6 - 25 mg/dL [facility] Creatinine 1.86(H) 0.60 - 1.10 mg/dL [facility] Glucose 102 70 - 199 mg/dL [facility] Comment: Interpretive Data Fasting glucose >/= 126 [...] 2022. Calcium 9.2 8.5 - 10.3 mg/dL [facility] Phosphorus, pl 3.1 2.3 - 4.5 mg/dL [facility] Albumin 3.8 3.5 - 5.0 g/dL [facility] Blood 06/03/2024 2:22 AM CDT 06/03/2024 2:57 AM CDT us Pineda Barrios MD LAB BLOOD RICO [place]DE[place] Final Result [facility] [place] [address] * (ABNORMAL) eGFR (06/02/2024 8:43 AM CDT) Pathologist [facility] eGFR 33(L) >=60 mL/min/1. 73 m2 Comment: [...] BLOOD ORDERABLES Final Result Performing Organization Address [facility] de Phone Number [facility] [place] [address] * Differential, auto (06/02/2024 8:43 AM CDT) Pathologist [facility] Neutrophil abs 2.3 1.5 - 6.5 K/cumm Imm gran abs 0.0 0.0 - 0.1 K/cumm [facility] Lymphocyte abs 1.3 0.8 - 3.3 K/cumm [facility] Monocyte abs 0.4 0.2 - 0.8 K/cumm [facility] Eosinophil abs 0.1 0.0 - 0.5 K/cumm [facility] Basophil abs 0.0 0.0 - 0.1 K/cumm [facility] Neutrophil pct 55.6 % [facility] Comment: Interpretive Data Percent cell count reference ranges are not reported, since discordance with absolute values may lead to misinterpretation of CBC data. Current Interpretive Data was last revised on 2017. Imm gran pct 0.2 % [facility] Comment: Interpretive Data Percent cell count reference ranges are not reported, since discordance with absolute values may lead to misinterpretation of CBC data. Current Interpretive Data was last revised on 2017. Lymphocyte pct 30.7 % [facility] Comment: Interpretive Data Percent cell count reference ranges are not reported, since discordance with absolute values may lead to misinterpretation of CBC data. Current Interpretive Data was last revised on 2017. Monocyte pct 10.1 % [facility] Comment: Interpretive Data Percent cell count reference ranges are not reported, since discordance with absolute values may lead to misinterpretation of CBC data. Current Interpretive Data was last revised on 2017. Eosinophil pct 3.2 % [facility] Comment: Interpretive Data Percent cell count reference ranges are not reported, since discordance with absolute values may lead to misinterpretation of CBC data. Current Interpretive Data was last revised on 2017. Basophil pct 0.2 % [facility] Comment: Interpretive Data Percent cell count reference ranges are not reported, since discordance with absolute values may lead to misinterpretation of CBC data. Current Interpretive Data was last revised on 2017. Blood 06/02/2024 8:43 AM CDT 06/02/2024 9:14 AM CDT us Patricia Davidson MD PhD LAB BLOOD ORDERABLES Final Result [facility] Department [place] [address] * Tacrolimus level trough (06/02/2024 8:43 AM CDT) [facility] Tacrolimus trough 3.8 ng/mL Comment: Interpretive Data Testing performed by liquid chromatography-tandem mass spectrometry. Therapeutic concentrations vary depending on type of transplanted organ and time elapsed since transplant. Typical trough concentrations range from 5-15 ng/mL. This test was developed and its performance characteristics determined by the [facility] consistent with CLIA requirements. This test has not been cleared or approved by the [place] Food and Drug administration. Current interpretive data last reviewed 2019. Blood 06/02/2024 8:43 AM CDT 06/02/2024 9:14 AM CDT us Patricia Davidson MD PhD LAB BLOOD ORDERABLES Final Result [facility] Department [place] [address] * (ABNORMAL) CBC with auto differential (06/02/2024 8:43 AM CDT) WBC 4.1 3.8 - 9.9 K/cumm Hgb 10.8(L) 11.9 - 15.5 g/dL [facility] Hct 30.5(L) 35.6 - 45.5 % [facility] Plt 105(L) 150 - 400 K/cumm [facility] MPV 11.6 9.1 - 12.3 fL [facility] RBC 3.03(L) 3.90 - 5.20 M/cumm [facility] MCV 100.7(H) 81.3 - 96.4 fL [facility] MCH 35.6(H) 27.1 - 33.3 pg [facility] MCHC 35.4 32.3 - 35.7 g/dL [facility] RDW CV 13.3 11.1 - 14.9 % [facility] RDW SD 48.2(H) 35.7 - 48.1 fL [facility] NRBC abs 0.00 0.00 - 0.01 K/cumm [facility] Blood 06/02/2024 8:43 AM CDT 06/02/2024 9:14 AM CDT Patricia Davidson MD PhD LAB BLOOD ORDERABLES Final Result [facility] [place] [address] * (ABNORMAL) Renal function panel (06/02/2024 8:43 AM CDT) Sodium 143 135 - 145 mmol/L Potassium, pl 5.1(H) 3.3 - 4.9 mmol/L [facility] Comment:Hemolyzed; Potassium value may be falsely elevated by as much as 0.3-0.5 mmol/L. Suggest redraw and reanalysis. Chloride 111(H) 97 - 110 mmol/L [facility] CO2 26 22 - 32 mmol/L [facility] Anion gap 6 2 - 15 mmol/L [facility] BUN 22 6 - 25 mg/dL [facility] Creatinine 1.93(H) 0.60 - 1.10 mg/dL [facility] Glucose 108 70 - 199 mg/dL [facility] Comment: Interpretive Data Fasting glucose >/= 126 [...] 2022. Calcium 8.8 8.5 - 10.3 mg/dL [facility] Phosphorus, pl 3.5 2.3 - 4.5 mg/dL [facility] Albumin 3.4(L) 3.5 - 5.0 g/dL [facility] Blood 06/02/2024 8:43 AM CDT 06/02/2024 9:14 AM CDT us Patricia Davidson MD PhD LAB BLOOD ORDERABLES Final Result Performing Organization Address City/[facility]/ZIP Co de Phone Number [facility] [place] [address] * Immunoglobulin profile (06/01/2024 9:10 PM CDT) [facility] Immunoglobulin G 882 700 - 1,600 mg/dL Immunoglobulin A 213 70 - 400 mg/dL [facility] Immunoglobulin M 92 40 - 230 mg/dL [facility] Blood 06/01/2024 9:10 PM CDT 06/01/2024 10:48 PM CDT Pineda Barrios MD LAB BLOOD KELLEE COURTNEY Final Result [facility] Department [place] [address] * Differential, auto (06/01/2024 10:03 AM CDT) [facility] Neutrophil abs 3.5 1.5 - 6.5 K/cumm Imm gran abs 0.0 0.0 - 0.1 K/cumm [facility] Lymphocyte abs 1.3 0.8 - 3.3 K/cumm [facility] Monocyte abs 0.4 0.2 - 0.8 K/cumm [facility] Eosinophil abs 0.2 0.0 - 0.5 K/cumm [facility] Basophil abs 0.0 0.0 - 0.1 K/cumm [facility] Neutrophil pct 65.5 % [facility] Comment: Interpretive Data Percent cell count reference ranges are not reported, since discordance with absolute values may lead to misinterpretation of CBC data. Current Interpretive Data was last revised on 2017. Imm gran pct 0.2 % [facility] Comment: Interpretive Data Percent cell count reference ranges are not reported, since discordance with absolute values may lead to misinterpretation of CBC data. Current Interpretive Data was last revised on 2017. Lymphocyte pct 23.6 % [facility] Comment: Interpretive Data Percent cell count reference ranges are not reported, since discordance with absolute values may lead to misinterpretation of CBC data. Current Interpretive Data was last revised on 2017. Monocyte pct 7.7 % [facility] Comment: Interpretive Data Percent cell count reference ranges are not reported, since discordance with absolute values may lead to misinterpretation of CBC data. Current Interpretive Data was last revised on 2017. Eosinophil pct 2.8 % [facility] Comment: Interpretive Data Percent cell count reference ranges are not reported, since discordance with absolute values may lead to misinterpretation of CBC data. Current Interpretive Data was last revised on 2017. Basophil pct 0.2 % [facility] Comment: Interpretive Data Percent cell count reference ranges are not reported, since discordance with absolute values may lead to misinterpretation of CBC data. Current Interpretive Data was last revised on 2017. Blood 06/01/2024 10:0 3 AM CDT 06/01/2024 10:19 AM CDT us Patricia Davidson MD PhD LAB BLOOD ORDERABLES Final Result [facility] [place] [address] * (ABNORMAL) CBC with auto differential (06/01/2024 10:03 AM CDT) WBC 5.3 3.8 - 9.9 K/cumm Hgb 12.1 11.9 - 15.5 g/dL [facility] Hct 34.0(L) 35.6 - 45.5 % [facility] Plt 98(L) 150 - 400 K/cumm [facility] MPV 11.6 9.1 - 12.3 fL [facility] RBC 3.44(L) 3.90 - 5.20 M/cumm [facility] MCV 98.8(H) 81.3 - 96.4 fL [facility] MCH 35.2(H) 27.1 - 33.3 pg [facility] MCHC 35.6 32.3 - 35.7 g/dL [facility] RDW CV 12.8 11.1 - 14.9 % [facility] RDW SD 45.8 35.7 - 48.1 fL [facility] NRBC abs 0.00 0.00 - 0.01 K/cumm [facility] Blood 06/01/2024 10:0 3 AM CDT 06/01/2024 10:19 AM CDT Patricia Davidson MD PhD LAB BLOOD ORDERABLES Final Result Performing Organization Address [facility] de Phone Number [facility] Department [place] [address] * Tacrolimus level trough (06/01/2024 9:20 AM CDT) Tacrolimus trough 6.5 ng/mL Comment: Interpretive Data Testing performed by liquid chromatography-tandem mass spectrometry. Therapeutic concentrations vary depending on type of transplanted organ and time elapsed since transplant. Typical trough concentrations range from 5-15 ng/mL. This test was developed and its performance characteristics determined by the [facility] consistent with CLIA requirements. This test has not been cleared or approved by the US Food and Drug administration. Current interpretive data last reviewed 2019. Blood 06/01/2024 9:20 AM CDT 06/01/2024 9:53 AM CDT Patricia Davidson MD PhD LAB BLOOD ORDERABLES Final Result Performing Organization Address [facility] de Phone Number [facility] [place] [address] [place] [address] * (ABNORMAL) eGFR (06/01/2024 6:17 AM CDT) [...] MD PhD LAB BLOOD ORDERABLES Final Result [facility] [place] [address] * (ABNORMAL) Renal function panel (06/01/2024 6:17 AM CDT) Pathologist [facility] Sodium 135 135 - 145 mmol/L Potassium, pl 4.5 3.3 - 4.9 mmol/L [facility] Chloride 103 97 - 110 mmol/L [facility] CO2 22 22 - 32 mmol/L [facility] Anion gap 10 2 - 15 mmol/L [facility] BUN 24 6 - 25 mg/dL [facility] Creatinine 2.15(H) 0.60 - 1.10 mg/dL [facility] Glucose 120 70 - 199 mg/dL [facility] Comment: Interpretive Data Fasting glucose >/= 126 [...] 2022. Calcium 8.7 8.5 - 10.3 mg/dL [facility] Phosphorus, pl 2.8 2.3 - 4.5 mg/dL [facility] Albumin 3.6 3.5 - 5.0 g/dL [facility] Blood 06/01/2024 6:17 AM CDT 06/01/2024 6:52 AM CDT us Patricia Davidson MD PhD LAB BLOOD ORDERABLES Final Result [facility] Department [place] [address] * TRANSTHORACIC ECHO (TTE) COMPLETE W DOPPLER/CF WO CONTRAST (05/31/2024 2:50 PM CDT) Anatomical Region Laterality Modality Ultrasound 05/31/2024 2:12 PM CDT Narrative 05/31/2024 3:36 PM CDT [facility] [place] [address] Transthoracic Echocardiographic Report Patient Name: MISHA BROWNE : 1980 (43y 7m) Gender: F Study Date: 05/31/2024 02:12:33 PM Ht(Inch): 63 Wt(Lb): 184.97 BSA: 1.93 Explosive Operator Grenade: Elisabeth Em RDCS Location: [id number] Order Provider: PINEDA HINOJOSA Heart Rate: 61 [...] trileaflet aortic valve. Mild aortic valve regurgitation (UUU=003 ms). The mean transaortic gradient is 4 [...] LA Length 4C 6.78 cm AI Decel Wilcox 2.15 m/s2 LA Length 2C 6.66 cm [...] Procedure Note Stalin Krishna MD - 05/31/2024 [facility] [place] [address] Transthoracic Echocardiographic Report Patient Name: MISHA BROWNE : 1980 (43y 7m) Gender: F Study Date: 05/31/2024 02:12:33 PM Ht(Inch): 63 Wt(Lb): 184.97 BSA: 1.93 Explosive Operator Grenade: Elisabeth Em RDCS Location: [place] [address] Order Provider:PINEDA HINOJOSA Heart Rate: 61 BMI: [...] Normal trileaflet aortic valve. Mild aortic valve regurgitation(IDQ=599 ms). The mean transaortic gradient is 4 [...] [ -25.0 - -18.0 ] AI Decel [id number] sec LA Length 4C 6.78 cm AI Decel Slope2.15 m/s2 LA Length 2C 6.66 cm AI IEG941.76 msec LA Volume BP 83.77 ml MV [...] [ 1.71 - 5.00 ] MV Decel Uywj910.34 msec [ 104.00 - 258.00 ] RA [...] MD PhD LAB BLOOD ORDERABLES Final Result [facility] [place] [address] * Differential, auto (05/31/2024 4:55 AM CDT) Neutrophil abs 4.9 1.5 - 6.5 K/cumm Imm gran abs 0.0 0.0 - 0.1 K/cumm [facility] Lymphocyte abs 1.4 0.8 - 3.3 K/cumm [facility] Monocyte abs 0.6 0.2 - 0.8 K/cumm [facility] Eosinophil abs 0.1 0.0 - 0.5 K/cumm [facility] Basophil abs 0.0 0.0 - 0.1 K/cumm [facility] Neutrophil pct 69.8 % [facility] Comment: Interpretive Data Percent cell count reference ranges are not reported, since discordance with absolute values may lead to misinterpretation of CBC data. Current Interpretive Data was last revised on 2017. Imm gran pct 0.6 % [facility] Comment: Interpretive Data Percent cell count reference ranges are not reported, since discordance with absolute values may lead to misinterpretation of CBC data. Current Interpretive Data was last revised on 2017. Lymphocyte pct 19.7 % [facility] Comment: Interpretive Data Percent cell count reference ranges are not reported, since discordance with absolute values may lead to misinterpretation of CBC data. Current Interpretive Data was last revised on 2017. Monocyte pct 8.0 % [facility] Comment: Interpretive Data Percent cell count reference ranges are not reported, since discordance with absolute values may lead to misinterpretation of CBC data. Current Interpretive Data was last revised on 2017. Eosinophil pct 1.9 % [facility] Comment: Interpretive Data Percent cell count reference ranges are not reported, since discordance with absolute values may lead to misinterpretation of CBC data. Current Interpretive Data was last revised on 2017. Basophil pct 0.0 % [facility] Comment: Interpretive Data Percent cell count reference ranges are not reported, since discordance with absolute values may lead to misinterpretation of CBC data. Current Interpretive Data was last revised on 2017. Blood 05/31/2024 4:55 AM CDT 05/31/2024 5:49 AM CDT Patricia Davidson MD PhD LAB BLOOD ORDERABLES Final Result Performing Organization Address [facility] de Phone Number [facility] [place] [address] * Tacrolimus level trough (05/31/2024 4:55 AM CDT) [facility] Tacrolimus trough 9.2 ng/mL Comment: Interpretive Data Testing performed by liquid chromatography-tandem mass spectrometry. Therapeutic concentrations vary depending on type of transplanted organ and time elapsed since transplant. Typical trough concentrations range from 5-15 ng/mL. This test was developed and its performance characteristics determined by the [facility] consistent with CLIA requirements. This test has not been cleared or approved by the US Food and Drug administration. Current interpretive data last reviewed 2019. Blood 05/31/2024 4:55 AM CDT 05/31/2024 5:49 AM CDT Patricia Davidson MD PhD LAB BLOOD ORDERABLES Final Result Performing Organization Address [facility] de Phone Number [facility] [place] [address] * (ABNORMAL) CBC with auto differential (05/31/2024 4:55 AM CDT) [facility] WBC 7.0 3.8 - 9.9 K/cumm Hgb 11.2(L) 11.9 - 15.5 g/dL [facility] Hct 31.4(L) 35.6 - 45.5 % [facility] Plt 102(L) 150 - 400 K/cumm [facility] MPV 10.9 9.1 - 12.3 fL [facility] RBC 3.15(L) 3.90 - 5.20 M/cumm [facility] MCV 99.7(H) 81.3 - 96.4 fL [facility] MCH 35.6(H) 27.1 - 33.3 pg [facility] MCHC 35.7 32.3 - 35.7 g/dL [facility] RDW CV 12.9 11.1 - 14.9 % [facility] RDW SD 46.0 35.7 - 48.1 fL [facility] NRBC abs 0.00 0.00 - 0.01 K/cumm [facility] Blood 05/31/2024 4:55 AM CDT 05/31/2024 5:49 AM CDT us Patricia Davidson MD PhD LAB BLOOD ORDERABLES Final Result [facility] Department [place] [address] * (ABNORMAL) Renal function panel (05/31/2024 4:55 AM CDT) Sodium 136 135 - 145 mmol/L Potassium, pl 4.6 3.3 - 4.9 mmol/L [facility] Chloride 105 97 - 110 mmol/L [facility] CO2 23 22 - 32 mmol/L [facility] Anion gap 8 2 - 15 mmol/L [facility] BUN 30(H) 6 - 25 mg/dL [facility] Creatinine 2.90(H) 0.60 - 1.10 mg/dL [facility] Glucose 119 70 - 199 mg/dL [facility] Comment: Interpretive Data Fasting glucose >/= 126 [...] 2022. Calcium 8.4(L) 8.5 - 10.3 mg/dL [facility] Phosphorus, pl 3.2 2.3 - 4.5 mg/dL [facility] Albumin 3.6 3.5 - 5.0 g/dL [facility] Blood 05/31/2024 4:55 AM CDT 05/31/2024 5:48 AM CDT Result [facility] Patricia Davidson MD PhD LAB BLOOD ORDERABLES Final Result Performing Organization Address [facility] de Phone Number [facility] [place] [address] * Sodium, urine, random (05/30/2024 5:23 PM CDT) Sodium, ur <20 mmol/L Comment: Interpretive Data No reference range established. Current interpretive data was last revised 2018. Urine 05/30/2024 5:23 PM CDT 05/30/2024 5:59 PM CDT Pineda Barrios MD LAB URINE ORDE RABLES Final Result Performing Organization Address [facility] de Phone Number [facility] Department [place] [address] * Creatinine, urine, random (05/30/2024 5:23 PM CDT) Creatinine Ur 121.1 mg/dL Comment: Interpretive Data No reference range established. Current interpretive data was last revised 2018. Urine 05/30/2024 5:23 PM CDT 05/30/2024 5:59 PM CDT Result [facility] Pineda Barrios MD LAB URINE ORDE RABLES Final Result Performing Organization Address [facility] de Phone [place] [address] * BK virus PCR quantitative Blood (05/30/2024 4:44 AM CDT) [facility] BKV DNA result, pl Not Detected [facility] Comment: The quantifiable range of this assay is 21.5 IU/mL to 100,000,000 IU/mL (1.33 log IU/mL to 8.00 log IU/mL). Testing was performed by the [employer] GPal0 BKV Quantatitive Test version 2.0 ([employer] Testing performed at [facility] Current Interpretive Data was last revised on 2021. Blood 05/30/2024 4:44 AM CDT 05/30/2024 5:55 AM CDT Patricia Davidson MD PhD LAB MICROBIOLOGY - GENERAL ORDERABLES Final Result Performing Organization Address [facility]/ZIP [place] [address] [facility] * Collection Task for HLA Antibody Screen (05/30/2024 4:44 AM CDT) [facility] HLA Antibody Screen By Single Antigen Received Blood 05/30/2024 4:44 AM CDT 05/30/2024 9:01 AM CDT Patricia Davidson MD PhD LAB BLOOD ORDERABLES [place] [address] * Cytomegalovirus (CMV) DNA PCR, quantitative Blood (05/30/2024 4:44 AM CDT) [facility] CMV DNA Not Detected [facility] Comment: Interpretive Data: The quantifiable range of this assay is 34 IUnits/mL to 10,000,000 IUnits/mL (1.53 log IUnits/mL to 7.0 log IUnits/mL). Testing was performed by the GASTON 6800 CMV Test ([employer] Testing performed at [facility]. Current interpretive data was last revised on 2020. Blood 05/30/2024 4:44 AM CDT 05/30/2024 5:55 AM CDT Patricia Davidson MD PhD LAB MICROBIOLOGY - GENERAL ORDERABLES Final Result Performing Organization Address [facility] Co de Phone Number [facility] [place] [address] [place] [address] [facility] * (ABNORMAL) eGFR (05/30/2024 4:44 AM CDT) Pathologist [facility] eGFR 21(L) >=60 mL/min/1. 73 m2 Comment: [...] BLOOD ORDERABLES Final Result Performing Organization Address [facility]/ZIP Co de Phone Number [facility] Department [place] [address] [place] [address] * Differential, auto (05/30/2024 4:44 AM CDT) Neutrophil abs 5.0 1.5 - 6.5 K/cumm Imm gran abs 0.0 0.0 - 0.1 K/cumm [facility] Lymphocyte abs 1.7 0.8 - 3.3 K/cumm [facility] Monocyte abs 0.5 0.2 - 0.8 K/cumm [facility] Eosinophil abs 0.1 0.0 - 0.5 K/cumm [facility] Basophil abs 0.0 0.0 - 0.1 K/cumm [facility] Neutrophil pct 68.2 % [facility] Comment: Interpretive Data Percent cell count reference ranges are not reported, since discordance with absolute values may lead to misinterpretation of CBC data. Current Interpretive Data was last revised on 2017. Imm gran pct 0.5 % [facility] Comment: Interpretive Data Percent cell count reference ranges are not reported, since discordance with absolute values may lead to misinterpretation of CBC data. Current Interpretive Data was last revised on 2017. Lymphocyte pct 22.6 % [facility] Comment: Interpretive Data Percent cell count reference ranges are not reported, since discordance with absolute values may lead to misinterpretation of CBC data. Current Interpretive Data was last revised on 2017. Monocyte pct 6.8 % [facility] Comment: Interpretive Data Percent cell count reference ranges are not reported, since discordance with absolute values may lead to misinterpretation of CBC data. Current Interpretive Data was last revised on 2017. Eosinophil pct 1.8 % [facility] Comment: Interpretive Data Percent cell count reference ranges are not reported, since discordance with absolute values may lead to misinterpretation of CBC data. Current Interpretive Data was last revised on 2017. Basophil pct 0.1 % [facility] Comment: Interpretive Data Percent cell count reference ranges are not reported, since discordance with absolute values may lead to misinterpretation of CBC data. Current Interpretive Data was last revised on 2017. Blood 05/30/2024 4:44 AM CDT 05/30/2024 5:30 AM CDT Patricia Davidson MD PhD LAB BLOOD ORDERABLES Final Result Performing Organization Address [facility] Co de Phone Number [facility] [place] [address] * Tacrolimus level trough (05/30/2024 4:44 AM CDT) Pathologist [facility] Tacrolimus trough 16.5 ng/mL Comment: Interpretive Data Testing performed by liquid chromatography-tandem mass spectrometry. Therapeutic concentrations vary depending on type of transplanted organ and time elapsed since transplant. Typical trough concentrations range from 5-15 ng/mL. This test was developed and its performance characteristics determined by the [facility] consistent with CLIA requirements. This test has not been cleared or approved by the [place] Food and Drug administration. Current interpretive data last reviewed 2019. Blood 05/30/2024 4:44 AM CDT 05/30/2024 5:30 AM CDT Patricia Davidson MD PhD LAB BLOOD ORDERABLES Final Result Performing Organization Address [facility] Co de Phone Number [facility] [address] [place] [address] * (ABNORMAL) CBC with auto differential (05/30/2024 4:44 AM CDT) [facility] WBC 7.4 3.8 - 9.9 K/cumm Hgb 12.0 11.9 - 15.5 g/dL [facility] Hct 33.9(L) 35.6 - 45.5 % [facility] Plt 130(L) 150 - 400 K/cumm [facility] MPV 10.8 9.1 - 12.3 fL [facility] RBC 3.40(L) 3.90 - 5.20 M/cumm [facility] MCV 99.7(H) 81.3 - 96.4 fL [facility] MCH 35.3(H) 27.1 - 33.3 pg [facility] MCHC 35.4 32.3 - 35.7 g/dL [facility] RDW CV 13.0 11.1 - 14.9 % [facility] RDW SD 47.4 35.7 - 48.1 fL [facility] NRBC abs 0.00 0.00 - 0.01 K/cumm [facility] Blood 05/30/2024 4:44 AM CDT 05/30/2024 5:30 AM CDT us Patricia Davidson MD PhD LAB BLOOD ORDERABLES Final Result [facility] [place] [address] * (ABNORMAL) Renal function panel (05/30/2024 4:44 AM CDT) Pathologist [facility] Sodium 142 135 - 145 mmol/L Potassium, pl 4.2 3.3 - 4.9 mmol/L [facility] Chloride 108 97 - 110 mmol/L [facility] CO2 25 22 - 32 mmol/L [facility] Anion gap 9 2 - 15 mmol/L [facility] BUN 23 6 - 25 mg/dL [facility] Creatinine 2.76(H) 0.60 - 1.10 mg/dL [facility] Glucose 123 70 - 199 mg/dL [facility] Comment: Interpretive Data Fasting glucose >/= 126 [...] 2022. Calcium 9.1 8.5 - 10.3 mg/dL [facility] Phosphorus, pl 3.6 2.3 - 4.5 mg/dL [facility] Albumin 3.8 3.5 - 5.0 g/dL [facility] Blood 05/30/2024 4:44 AM CDT 05/30/2024 5:31 AM CDT Patricia Davidson MD PhD LAB BLOOD ORDERABLES Final Result [facility] [place] [address] * HLA Donor Specific Antibody Report (05/30/2024 4:42 AM CDT) Patricia Davidson MD PhD LAB BLOOD ORDERABLES Final Result * HLA Donor Specific Antibody Report (05/30/2024 4:42 AM CDT) Result [facility] Patricia Davidson MD PhD LAB BLOOD ORDERABLES Final Result * HLA Antibody Screen - DSA (Class I and Class II) (05/30/2024 4:42 AM CDT) Blood 05/30/2024 4:42 AM CDT 05/31/2024 11:29 AM CDT Narrative [facility] - 05/31/2024 11:29 AM CDT Result [facility] Patricia Davidson MD PhD LAB BLOOD ORDERABLES Final Result Performing Organization Address [facility] Co de Phone Number [facility] * ECG 12 lead (05/30/2024 1:10 AM CDT) Ventricular Rate EKG/Min 75 BPM [facility] Atrial Rate 75 BPM [facility] DC-Interval (MSEC) 160 ms [facility] QRS-Interval (MSEC) 82 ms [facility] QT-Interval (MSEC) 456 ms [facility] QTc 509 ms [facility] P [place] 31 degrees [facility] R [place] -9 degrees [facility] T [place] 44 degrees [facility] Diagnosis Normal sinus rhythm Poor r wave progression associated with abnormal lead placement, obesity, pulmonary disease, anterior infarction. Prolonged QT Abnormal ECG When compared with ECG of 20-APR-2020 11:02, QRS voltage has increased Confirmed by BRODIE LEIGH M.D ([id number]) on 05/30/2024 12:29:55 PM [facility] [place] 05/30/2024 1:10 AM CDT 05/30/2024 12:29 PM CDT Patricia Davidson MD PhD ECG ORDERABLES Final Resul t [facility] [place] [facility] * US Renal Transplant W Dopplers [...] by: Ziyad Purdy M.D. Jessee Mandel MD [facility] US PROCEDURES Aniya l Result * Influenza A/B, RSV, and COVID-19 PCR Nasopharyngeal (05/29/2024 4:10 PM CDT) Pathologist [facility] COVID-19 RNA Negative Negative [facility] Influenza A [facility] Negative [facility] Influenza B RNA Negative Negative [facility] RSV RNA Negative Negative [facility] Comment: Interpretive data: Testing performed by [facility] ([phone]). This test is performed using the [employer] Xpert Xpress CoV-2/Flu/RSV plus assay. This is a multiplex, real-time reverse transcriptase PCR assay intended for the qualitative detection of nucleic acid from SARS-CoV-2, influenza A, influenza B, and respiratory syncytial virus. This assay has been cleared by the [place] Food and Drug administration. The performance characteristics have been verified by the [facility]. Results must be considered in the clinical context, and a negative result does not rule out infection. Interpretive Data last revised 2023 Nasopharyngeal 05/29/2024 4: 10 PM CDT 05/29/2024 5:03 PM CDT Narrative [facility] - 05/29/2024 5:51 PM CDT Is the Patient experiencing symptoms consistent with COVID?->Unknown Mona Barrios MD LAB MICROBIOLOGY - GEN ERAL ORDERABLES Final Result [facility] [place] [address] [facility] * Respiratory pathogen panel Nasopharyngeal (05/29/2024 4:10 PM CDT) Pathologist [facility] Influenza A RNA Not Detected Not Detected Influenza B RNA Not Detected Not Detected [facility] RSV RNA Not Detected Not Detected [facility] COVID-19 RNA Not Detected Not Detected [facility] Coronavirus 229E RNA Not Detected Not Detected [facility] Coronavirus HKU1 RNA Not Detected Not Detected [facility] Coronavirus NL63 RNA Not Detected Not Detected [facility] Coronavirus OC43 RNA Not Detected Not Detected [facility] Adenovirus DNA Not Detected Not Detected [facility] Metapneumovirus RNA Not Detected Not Detected [facility] Rhinovirus/Enterov irus RNA Not Detected Not Detected [facility] Parainfluenza 1 RNA Not Detected Not Detected [facility] Parainfluenza 2 RNA Not Detected Not Detected [facility] Parainfluenza 3 RNA Not Detected Not Detected [facility] Parainfluenza 4 RNA Not Detected Not Detected [facility] B. pertussis DNA Not Detected Not Detected [facility] B. parapertussis DNA Not Detected Not Detected [facility] C. pneumoniae DNA Not Detected Not Detected [facility] M. pneumoniae DNA Not Detected Not Detected [facility] Nasopharyngeal 05/29/2024 4: 10 PM CDT 05/30/2024 6:07 AM CDT Narrative [facility] - 05/30/2024 7:05 AM CDT Interpretive Data The [facility] FilmArray Respiratory Panel (RP2.1) assay is a [...] assay has FDA clearance for testing of COMMODITIES REQUIREMENTS ANALYST swabs. The performance of additional specimen types has been assessed by the performing laboratory. The performance characteristics of this assay have been determined by [facility]. Current interpretive data was last revised on 21. us Pineda Denise Radhakrishna Denis MD LAB MICROBIOLO GY - GENERAL ORDERABLES Final Result [facility] [place] [address] * Urinalysis reflex to microscopic (05/29/2024 3:31 PM CDT) Color, ur Yellow Yellow Clarity, ur Clear Clear [facility] Specific gravity, ur 1.013 1.003 - 1.030 [facility] pH, urine 5.5 [facility] Comment: Interpretive Data U rine pH is affected by diet, medications, systemic acid-base disturbances, and renal tubular function. pH may affect urinary stone formation. For example, urine pH below 6.0 may help reduce the tendency for calcium phosphate stones and pH greater than 6.0 may reduce the tendency for uric acid stone formation. Source: [facility] Current Interpretive Data was last revised on 2017 Protein, ur ql Trace Negative [facility] Glucose, ur ql Negative Negative [facility] Ketones, ur Negative Negative [facility] Bilirubin, ur Negative Negative [facility] Blood, ur Negative Negative [facility] Urobilinogen, ur <2.0 <2.0 mg/dL [facility] Nitrite, ur Negative Negative [facility] Leukocyte esterase, ur Negative Negative [facility] UA reflex comment Reflex conditions for microscopic UA not met. [facility] Urine 05/29/2024 3:31 PM CDT 05/29/2024 3:38 PM CDT Shruti Damon MD LAB URINE ORDERABLES Aniya l Result [facility] Department [place] [address] * POCT hCG, urine (05/29/2024 3:30 PM [...] ORDERABLES - DEVICE F inal Result [facility] Department [place] [address] * (ABNORMAL) eGFR (05/29/2024 2:57 PM CDT) Pathologist [facility] eGFR 30(L) >=60 mL/min/1. 73 m2 Comment: [...] MD LAB BLOOD ORDERABLES Aniya andrez Result [facility] Department [place] [address] * Differential, auto (05/29/2024 2:57 PM CDT) Neutrophil abs 5.5 1.5 - 6.5 K/cumm Imm gran abs 0.0 0.0 - 0.1 K/cumm [facility] Lymphocyte abs 0.9 0.8 - 3.3 K/cumm [facility] Monocyte abs 0.4 0.2 - 0.8 K/cumm [facility] Eosinophil abs 0.1 0.0 - 0.5 K/cumm [facility] Basophil abs 0.0 0.0 - 0.1 K/cumm [facility] Neutrophil pct 79.6 % [facility] Comment: Interpretive Data Percent cell count reference ranges are not reported, since discordance with absolute values may lead to misinterpretation of CBC data. Current Interpretive Data was last revised on 2017. Imm gran pct 0.4 % [facility] Comment: Interpretive Data Percent cell count reference ranges are not reported, since discordance with absolute values may lead to misinterpretation of CBC data. Current Interpretive Data was last revised on 2017. Lymphocyte pct 13.7 % [facility] Comment: Interpretive Data Percent cell count reference ranges are not reported, since discordance with absolute values may lead to misinterpretation of CBC data. Current Interpretive Data was last revised on 2017. Monocyte pct 5.5 % [facility] Comment: Interpretive Data Percent cell count reference ranges are not reported, since discordance with absolute values may lead to misinterpretation of CBC data. Current Interpretive Data was last revised on 2017. Eosinophil pct 0.7 % [facility] Comment: Interpretive Data Percent cell count reference ranges are not reported, since discordance with absolute values may lead to misinterpretation of CBC data. Current Interpretive Data was last revised on 2017. Basophil pct 0.1 % [facility] Comment: Interpretive Data Percent cell count reference ranges are not reported, since discordance with absolute values may lead to misinterpretation of CBC data. Current Interpretive Data was last revised on 2017. Blood 05/29/2024 2:57 PM CDT 05/29/2024 3:21 PM CDT Shruti Damon MD LAB BLOOD ORDERABLES Aniya l Result Performing Organization Address [facility] Co de Phone Number [facility] [place] [place] [address] * (ABNORMAL) CBC with auto differential (05/29/2024 2:57 PM CDT) [facility] WBC 6.9 3.8 - 9.9 K/cumm Hgb 13.5 11.9 - 15.5 g/dL [facility] Hct 38.8 35.6 - 45.5 % [facility] Plt 129(L) 150 - 400 K/cumm [facility] MPV 10.7 9.1 - 12.3 fL [facility] RBC 3.88(L) 3.90 - 5.20 M/cumm [facility] MCV 100.0(H) 81.3 - 96.4 fL [facility] MCH 34.8(H) 27.1 - 33.3 pg [facility] MCHC 34.8 32.3 - 35.7 g/dL [facility] RDW CV 13.0 11.1 - 14.9 % [facility] RDW SD 47.6 35.7 - 48.1 fL [facility] NRBC abs 0.00 0.00 - 0.01 K/cumm [facility] Blood Venous blood specimen / Unknown 05/29/2024 2:57 PM CDT 05/29/2024 3:21 PM CDT Shruti Damon MD LAB BLOOD ORDERABLES Aniya l Result Performing Organization Address City/[facility]/ZIP Co de Phone Number [facility] [place] [address] [place] [address] * Tacrolimus level random (05/29/2024 2:57 PM CDT) [facility] Tacrolimus random 20.2 ng/mL Comment: Interpretive Data Testing performed by liquid chromatography-tandem mass spectrometry. Therapeutic concentrations vary depending on type of transplanted organ and time elapsed since transplant. Typical trough concentrations range from 5-15 ng/mL. This test was developed and its performance characteristics determined by the [facility] consistent with CLIA requirements. This test has not been cleared or approved by the [place] Food and Drug administration. Current interpretive data last reviewed 2019. Blood 05/29/2024 2:57 PM CDT 05/29/2024 3:28 PM CDT Pineda Barrios MD LAB BLOOD ORDE RABLES Final Result Performing Organization Address [facility] Co de Phone Number [facility] Department [place] [address] * Lipase (05/29/2024 2:57 PM CDT) [facility] Lipase 12 10 - 99 Units/L Blood Venous blood specimen / Unknown 05/29/2024 2:57 PM CDT 05/29/2024 3:20 PM CDT Shruti Damon MD LAB BLOOD ORDERABLES Aniya l Result Performing Organization Address [facility]/ZIP Co de Phone Number [facility] Department [place] [address] * (ABNORMAL) Comprehensive metabolic panel (05/29/2024 2:57 PM CDT) [facility] Sodium 137 135 - 145 mmol/L Potassium, pl 4.6 3.3 - 4.9 mmol/L [facility] Chloride 107 97 - 110 mmol/L [facility] CO2 18(L) 22 - 32 mmol/L [facility] Anion gap 12 2 - 15 mmol/L [facility] BUN 22 6 - 25 mg/dL [facility] Creatinine 2.10(H) 0.60 - 1.10 mg/dL [facility] Glucose 185 70 - 199 mg/dL [facility] Comment: Interpretive Data Fasting glucose >/= 126 [...] 2022. Calcium 9.9 8.5 - 10.3 mg/dL [facility] Bilirubin, total 0.8 0.1 - 1.2 mg/dL [facility] Protein, pl 7.6 6.5 - 8.5 g/dL [facility] Albumin 4.0 3.5 - 5.0 g/dL [facility] Alk phos 372(H) 40 - 130 Units/L [facility] ALT 22 7 - 45 Units/L [facility] AST 28 10 - 45 Units/L [facility] Blood 05/29/2024 2:57 PM CDT 05/29/2024 3:20 PM CDT Shruti Damon MD LAB BLOOD ORDERABLES Aniya l Result Performing Organization Address City/State/[facility] Co de Phone Number [facility] Department [place] [address] * Hepatitis panel, acute (04/16/2020 6:35 AM [employer]) Hep A IgM Nonreactive Nonreactive [facility] Comment: Interpretive Data: If Hep A IgM Ab is reported as Equivocal, a new sample should be drawn in two weeks for testing. Current interpretive data was last revised on 19. Hep B core IgM Nonreactive Nonreactive [facility] Comment: Interpretive Data If HepB Core IgM Ab is reported as Equivocal, a new sample should be drawn in two weeks for testing. Current interpretive data was last revised on 19. Hep C Ab Nonreactive Nonreactive [facility] Comment:Antibodies to HCV no t detected. Does NOT exclude the possibility of recent exposure to HCV. HepBsAg Nonreactive Nonreactive [facility] Blood specimen (specimen) 04/16/2020 6:35 AM [employer] 04/16/2020 7:34 AM [employer]OWER us Jacob Gates MD LAB MICROBIOLOGY - GENER AL ORDERABLES Final Result [facility] [place] [address] from Last 3 Months or Most Recently Relevant to Health Maintenance Insurance [employer] OPEN ACCESS [facility] [employer] OPEN ACCESS [facility] EXCHANGE [place] IF [place]CHANGE Advance Directives For more information, please contact: [phone] * Full Code (Latest Code Status on File) Date Activated Date Inactivated Comments 05/29/2024 10:30 PM 06/13/2024 7:10 PM * Full Code Date Activated Date Inactivated Comments 04/16/2020 1:16 AM 04/23/2020 6:51 PM * Full Code Date Activated Date Inactivated Comments 08/14/2019 3:14 PM 08/14/2019 9:26 PM * Full Code Date Activated Date Inactivated Comments 07/25/2019 6:15 AM 07/25/2019 11:51 PM Care Teams Patient Service Coordinator Relationship Specialty Start Date End Date Lyly Fiore NP [address] [place] [address] PCP - General Nurse Practitioner 05/29/24 Beatriz Lee MD [address] [place] [address] Referring Physician Gastroenterology 07/25/19 Taylor Kitchen, conventional mortgage underwriterArmed Security Guard 05/29/24
--- OUTSIDE RECORDS SUMMARY | 2024-06-26 17:04 | XMS_ITS | Encounter Summary ---
Author Organization [facility] Address [place] [address] Care Team Providers Care Horse Farm Manager Name Role Phone Ashley ZUNIGA MD, Hermes Perez Primary Care Provid er Lyly Fiore NP Primary Care Provider [phone] Encounter Details Date Type Department Care Team (Late st Contact Info) Description 02/22/2024 Hospital Follow-up Call [facility] [address] [place] [address] Zulma Ardon, RN Social History Tobacco Use [...] any time in the past 12 m [facility], were you homeless or living in a [facility] (including now)? No 02/20/2024 Comments No Sex and Gender Information Value Date Recorded Sex Assigned at Female 04/05/2024 4:26 PM FUR VAULT ATTENDANT Legal Sex Female 9:15 PM FUR VAULT ATTENDANT Gender Identity Not on file Sexual [...] Assessment Author Status No 02/20/2024 4:08 AM FUR VAULT ATTENDANT Kimmy Hayes RN Active documented as of this encounter Mental Status * Because of a physical, mental, or emotional condition, do you have serious difficulty concentrating, remembering, or making decisions? Answer Entry Date Author Status No 02/20/2024 4:08 AM FUR VAULT ATTENDANT Kimmy Hayes RN Active documented in this encounter Plan of Treatment Not on file documented as of this encounter Visit Diagnoses Not on filedocumented in this encounter Additional Health Concerns Infection Onset Date Last Indicated Resolved Time Rhinovirus 02/16/2024 02/16/2024 02/26/2024 12:3 2 AM FUR VAULT ATTENDANT documented as of this encounter Care Teams Horse Farm Manager Relationship Specialty Start Date End Date Hermes Ramirez III, MD [address] [address] PCP - General FAMILY PRACTICE 06/20/17 04/13/24 Lyly Fiore NP [address] [place] [address] PCP - General NURSE PRACTITIONER 04/14/24 documented as of this encounter
--- OUTSIDE RECORDS SUMMARY | 2024-06-26 17:04 | XMS_ITS | Clinical Summary ---
Author Organization [facility] Address [facility] [place] [address] Care Team Providers Care Presser All Around Name Role Phone ChelsyLyly schaefer LEISA Primary Care Provider [phone] Allergies Active Allergy Reactions Criticality Noted Date [...] Problem Noted Date Diagnosed Date Acute CHF ([facility]) 02/20/2024 Viral infection 02/20/2024 Rectus sheath hematoma, initial encounter 2017 Cervical dysplasia 10/26/2016 History of vulvar dysplasia 10/26/2016 Gastric ulcer 10/24/2016 Pancreatitis ([facility]) 10/24/2016 Chronic kidney disease 10/24/2016 Anemia, unspecified 05/04/2012 Benign gestational thrombocytopenia ([facility]) History of cone biopsy of cervix 01/04/2012 History of liver transplant ([facility]) Acute pharyngitis 11/19/2010 Abdominal pain 11/13/2010 Aphthous ulcer 11/01/2010 Anxiety 07/21/2010 Encounters Date Type Department Care Team Description 05/13/2024 9:37 PM PAPER CONSERVATOR - 05/13/2024 11:39 PM PAPER CONSERVATOR Emergency [facility] [address] [place] [address] Beronica Lopez MD Headache Recurrent Or Know Dx Migraine Discharge Disposition: Home or Self Care (Routine Discharge) 05/13/2024 Travel 04/14/2024 6:08 AM PAPER CONSERVATOR - 04/14/2024 10:04 AM PAPER CONSERVATOR Emergency [facility] [address] [place] [address] Sierra Sen MD Ziebro, Zack Lovelace MD Back Pain Discharge Disposition: Home or Self Care (Routine Discharge) 04/14/2024 Travel 04/05/2024 4:31 PM PAPER CONSERVATOR - 04/05/2024 5:05 PM PAPER CONSERVATOR Emergency [facility] [address] [place] [address] Mona Galindo NP Headache Recurrent Or Know [...] any time in the past 12 m [facility], were you homeless or living in a [place] health care facility (including now)? No 02/20/2024 Comments No Sex and Gender Information Value Date Recorded Sex Assigned at Female 04/05/2024 4:26 PM PAPER CONSERVATOR Legal Sex Female 9:15 PM PAPER CONSERVATOR Gender Identity Not on file Sexual Orientation Not on file Last Filed Vital Signs Vital Sign Reading Time Taken Comments Blood Pressure 139/95 05/13/2024 10:40 PM PAPER CONSERVATOR Pulse 67 05/13/2024 10:49 PM PAPER CONSERVATOR Temperature 36.7 C (98.1 F) 05/13/2024 8:35 PM PAPER CONSERVATOR Respiratory Rate 14 05/13/2024 8:38 PM PAPER CONSERVATOR Oxygen Saturation 100% 05/13/2024 10:40 PM PAPER CONSERVATOR Inhaled Oxygen Concentration - - Weight 89.9 kg (198 lb 3.1 oz) 05/13/2024 8:35 P M PAPER CONSERVATOR Height 157.5 cm (5' 2 ) 05/13/2024 8:35 PM PAPER CONSERVATOR Body Mass Index 36.25 05/13/2024 8:35 PM PAPER CONSERVATOR Plan of Treatment Health Maintenance Due Date [...] HEAD WO CON STAT 05/13/2024 11:06 PM PAPER CONSERVATOR XR FOOT LT 3V STAT 04/14/2024 9:24 AM PAPER CONSERVATOR XR FOOT RT 3V STAT 04/14/2024 9:24 AM PAPER CONSERVATOR PRO-BRAIN NATRIURETIC PEPTIDE STAT 04/14/2024 7:09 AM PAPER CONSERVATOR COMPREHENSIVE METABOLIC PANEL STAT 04/14/2024 7:09 AM PAPER CONSERVATOR CBC W/DIFF AUTOMATED STAT 04/14/2024 7:09 AM PAPER CONSERVATOR HUMAN PAPILLOMAVIRUS, HIGH-RISK TYPES Routine 06/20/2022 12:00 PM CDT CYTOPATH CERV/VAG THIN LAYER Routine 06/20/2022 7:46 AM CDT from Last 3 Months or Most Recently Relevant to Health Maintenance Results * CT HEAD WO CON (05/13/2024 11:06 PM PAPER CONSERVATOR) Anatomical Region Laterality Modality Head Computed Tomogra phy 05/13/2024 11:0 8 PM PAPER CONSERVATOR Impressions 05/13/2024 11:09 PM PAPER CONSERVATOR IMPRESSION: 1. No definite CT evidence of acute intracranial abnormality, as above. Referred By: Interpreted By: Isaiah Becerra MD, 05/13/2024 11:08 PM Narrative 05/13/2024 11:09 PM PAPER CONSERVATOR [address] [address] EXAMINATION: CT of the head CLINICAL HISTORY: [...] Procedure Note Isaiah Becerra MD - 05/13/[address] [address] EXAMINATION: CT of the head CLINICAL HISTORY: [...] Isaiah Becerra MD, 05/13/2024 11:08 PM us Beroncia Lopez MD CT Fin al Result * XR FOOT RT 3V (04/14/2024 9:24 AM PAPER CONSERVATOR) Anatomical Region Laterality Modality Foot Radiographic Katy ging 04/14/2024 9:39 AM PAPER CONSERVATOR Impressions 04/14/2024 9:41 AM PAPER CONSERVATOR IMPRESSION: No fracture. Referred By: Interpreted By: Heriberto Betancourt MD, 04/14/2024 9:39 AM Narrative 04/14/2024 9:41 AM PAPER CONSERVATOR [address] [place], [place] [address] Examination: XR FOOT RT 3V, XR FOOT LT 3V [id number] Exam time: 04/14/2024 9:09 AM Indication: PATIENT [...] Procedure Note Heriberto Betancourt MD - 04/14/[address] [place], [place] [address] Examination: XR FOOT RT 3V, XR FOOT LT 3V [id number] Exam time: 04/14/2024 9:09 AM Indication: PATIENT [...] By: Heriberto Betancourt MD, 04/14/2024 9:39 AM Sirera Sen MD GENERAL IMAGING Final Result * XR FOOT LT 3V (04/14/2024 9:24 AM PAPER CONSERVATOR) Anatomical Region Laterality Modality Foot Radiographic Katy ging 04/14/2024 9:39 AM PAPER CONSERVATOR Impressions 04/14/2024 9:41 AM PAPER CONSERVATOR IMPRESSION: No fracture. Referred By: Interpreted By: Heriberto Betancourt MD, 04/14/2024 9:39 AM Narrative 04/14/2024 9:41 AM PAPER CONSERVATOR [address] [place], [place] [address] Examination: XR FOOT RT 3V, XR FOOT LT 3V [id number] Exam time: 04/14/2024 9:09 AM Indication: PATIENT [...] Procedure Note Heriberto Betancourt MD - 04/14/2024 [facility] [address] [place], [place] [address] Examination: XR FOOT RT 3V, XR FOOT LT 3V [id number] Exam time: 04/14/2024 9:09 AM Indication: PATIENT [...] (ABNORMAL) PRO-BRAIN NATRIURETIC PEPTIDE (04/14/2024 7:09 AM PAPER CONSERVATOR) PRO-B TYPE NATRIURETIC PEPTIDE 1,191(H) <125 PG/ML 04/14/2024 8:01 AM PAPER CONSERVATOR [facility] () [facility] Comment: AGE INDEPENDENT: <300 [...] 72% FOR ACUTE CHF. 04/14/2024 7:09 AM PAPER CONSERVATOR Sierra Sen MD LABORATORY Final Result [facility] [address] [place] [address], * (ABNORMAL) COMPREHENSIVE METABOLIC PANEL (04/14/2024 7:09 AM PAPER CONSERVATOR) SODIUM S/P/B 139 136 - 145 MMOL/L 04/14/2024 8:01 AM [facility] POTASSIUM S/P/B 4.1 3.6 - 5.0 MMOL/L 04/14/2024 8:01 AM [facility] CHLORIDE S/P/B 116(H) 97 - 115 MMOL/L 04/14/2024 8:01 AM [facility] CO2 16.8(L) 21.0 - 32.0 MMOL/L 04/14/2024 8:01 AM [facility] GLUCOSE 124(H) 70 - 99 MG/DL 04/14/2024 8:01 AM [facility] Comment: FASTING GLUCOSE 100 TO 125 MG/DL IS CONSISTENT WITH IMPAIRED FASTING GLUCOSE. FASTING GLUCOSE >125 MG/DL IS CONSISTENT WITH DIABETES. RANDOM GLUCOSE >200 MG/DL WITH HYPERGLYCEMIC SYMPTOMS IS CONSISTENT WITH DIABETES. PER ADA GUIDELINES BUN 32(H) 7 - 18 MG/DL 04/14/2024 8:01 AM [facility] CREATININE S/P/B 2.21(H) 0.55 - 1.02 MG/DL 04/14/2024 8:01 AM [facility] CALCIUM S/P/B 8.5 8.5 - 10.1 MG/DL 04/14/2024 8:01 AM [facility] BILIRUBIN TOTAL S/P/B 0.6 0.2 - 1.0 MG/DL 04/14/2024 8:01 AM [facility] Comment: THIS ASSAY IS NOT RECOMMENDED FOR PATIENTS UNDERGOING TREATMENT WITH ELTROMBOPAG DUE TO THE POTENTIAL FOR FALSELY ELEVATED RESULTS. ALKALINE PHOSPHATASE S/P/B 306(H) 37 - 98 U/L 04/14/2024 8:01 AM [facility] AST 35 15 - 37 U/L 04/14/2024 8:01 AM [facility] ALT 36 13 - 56 U/L 04/14/2024 8:01 AM [facility] TOTAL PROTEIN S/P/B 6.4 6.4 - 8.0 G/DL 04/14/2024 8:01 AM [facility] ALBUMIN S/P/B 3.4 3.4 - 5.0 G/DL 04/14/2024 8:01 AM [facility] ANION GAP 6.2 2.0 - 10.0 MMOL/L 04/14/2024 8:01 AM [facility] OSMOLALITY (CALC) 296 MOSM/KG 025 8:01 AM [facility] GFR ESTIMATE 28(L) >90 ML/MIN/1. 73 M2 04/14/2024 8:01 AM [facility] GFR NOTES GFR REFERENCE S: 04/14/2024 8:01 AM [facility] Comment: THE ESTIMATED GFR IS CALCULATED [...] FAILURE: <15 ml/min/1.73 m2 04/14/2024 7:09 AM PAPER CONSERVATOR Sierra Sen MD LABORATORY Final Result [facility] [address] [place] [place] [address], * (ABNORMAL) CBC W/DIFF AUTOMATED (04/14/2024 7:09 AM PAPER CONSERVATOR) WBC 7.77 4.00 - 10.80 x10'3/uL 04/14/2024 7:43 AM [facility] RBC 3.60(L) 4.10 - 5.40 x10'6/uL 04/14/2024 7:43 AM [facility] HGB 12.8 12.0 - 16.0 G/DL 04/14/2024 7:43 AM [facility] HCT 37.2 36.0 - 47.0 % 04/14/2024 7:43 AM [facility] MCV 103.3(H) 78.0 - 100.0 FL 04/14/2024 7:43 AM [facility] MCH 35.6(H) 27.0 - 31.0 PG 04/14/2024 7:43 AM [facility] MCHC 34.4 33.0 - 36.0 G/DL 04/14/2024 7:43 AM [facility] RDW 13.2 11.5 - 14.5 % 04/14/2024 7:43 AM [facility] PLT 134(L) 150 - 350 x10'3/uL 04/14/2024 7:43 AM [facility] MPV 10.9(H) 7.4 - 10.4 FL 04/14/2024 7:43 AM [facility] DIFFERENTIAL TYPE AUTOMATED 04/14/2024 7:43 AM [facility] SEG NEUTROPHILS 79.4 % 7:43 AM [facility] LYMPHOCYTES 12.0 % 04/14/2024 7:43 AM [facility] MONOCYTES 6.4 % 04/14/2024 7:43 AM [facility] EOSINOPHILS 1.8 % 04/14/2024 7:43 AM [facility] BASOPHILS 0.1 % 04/14/2024 7:43 AM [facility] IMMATURE GRANS % 0.3 % 04/14/19 7:43 AM [facility] NRBC 0.0 % 04/14/2024 7:43 AM [facility] ABS. NEUTROPHILS 6.17 1.60 - 8.30 x10'3/uL 04/14/2024 7:43 AM [facility] ABS. LYMPHOCYTES 0.93 0.80 - 4.70 x10'3/uL 04/14/2024 7:43 AM [facility] ABS. MONOCYTES 0.50 0.00 - 1.50 x10'3/uL 04/14/2024 7:43 AM [facility] ABS. EOSINOPHILS 0.14 0.00 - 0.40 x10'3/uL 04/14/2024 7:43 AM [facility] ABS. BASOPHILS 0.01 0.00 - 0.20 x10'3/uL 04/14/2024 7:43 AM [facility] ABS. IMMATURE GRANULOCYTES 0.02 0.00 - 0.03 x10'3/uL 04/14/2024 7:43 AM PAPER CONSERVATOR [facility] ABS. NUCLEATED RBC'S 0.00 0.00 - 0.01 x10'3/uL 04/14/2024 7:43 AM PAPER CONSERVATOR [facility] 04/14/2024 7:09 AM PAPER CONSERVATOR us Sierra Sen MD LABORATORY Final Result Performing Organization Address City/[facility]/ZIP Co de Phone Number [facility] [address] [place] [address], * HUMAN PAPILLOMAVIRUS, HIGH-RISK TYPES (06/20/2022 12:00 PM CDT) SPECIMEN CERVICAL/END OCERVICAL 06/22/2022 8:18 AM CDT [facility] HPV DNA HIGH RISK NEGATIVE NEGATIVE 06/22/2022 7:35 PM CDT [facility] Comment:SEE CYTOLOGY REPORT 06/20/2022 12:0 0 PM CDT us Sekou Scherer MD PATHOLOGY/CYTOLOGY ORDER KAREN Final Result Performing Organization Address City/[facility]/ZIP Co de Phone Number [facility] [address] [place] [address], * Cytopath Cerv/Vag Thin Layer (06/20/2022 7:46 AM CDT) THIN PREP PAP [facility] [address] [place] [address] Department of Pathology Pathology Report CERVICAL/VAGINAL PAP SMEAR REPORT Name: MISHA JACKSON Age: 7 1980 (Age: 41) Location: [facility] Sex: F Collected Date: 06/20/2022 [facility] #: [id number] Date Received: 06/22/2022 Date Reported: 06/24/2022 Provider: [...] Cohen (ASCP) CLINICAL HISTORY Z12.4 PAP HISTORY-NILM HOT BREAD BAKER SURGICAL HISTORY-HPV+ 05/17/16 LASER/CRYOTHERAPY ThinPrep Pap Test [...] is not effective in detecting cervical adenocarcinoma. [facility] 06/20/2022 7:46 AM CDT 06/22/2022 7:46 AM CDT Comment:CERVICAL/ENDOCERVICA L us Sekou Scherer MD PATHOLOGY/CYTOLOGY ORDER KAREN Final Result [facility] [address] [place] [address], from Last 3 Months or Most Recently Relevant to Health Maintenance Insurance [employer] Advance Directives * Full Code (Latest Code Status on File) Date Activated Date Inactivated Comments 02/20/2024 1:27 AM 02/20/2024 11:44 AM * Full Code Date Activated Date Inactivated Comments 06/21/2017 12:22 AM 06/21/2017 8:16 PM Care Teams Presser All Around Relationship Specialty Start Date End Date Lyly Fiore NP [address] [place] [address] PCP - General NURSE PRACTITIONER 04/14/24
--- OUTSIDE RECORDS SUMMARY | 2024-06-26 17:04 | XMS_ITS | Continuity of Care Document ---
Author Organization [facility] Address [address] [place] [address] Phone Care Team Providers Care Director Of Revenue Name Role Phone Santana Timmons MD Unavailable Unavailable Procedures Procedure Date Subsequent Hospital Care Initial Inpatient Consult Advance Directives Directive Yes / No Effective Date File Name No Information Encounters Encounter Description Practice Location Reason(s) For Visit Diagnoses Date Provider Providers Copied on Encounter Subsequent Hospital Care [facility], [address] [place] [address], [id number], tel:[phone] [facility] No Information 1 Shanelle Dillon. [address] [place] [address], [id number], [place]. tel:[phone] Referring Provider: Hermes Ramirez , [address] [place] [address], [id number]. tel:[phone] Initial Inpatient Consult [facility], [address] [place] [address], [id number], tel:[phone] [facility] No Information Shanelle Dillon. [address] [place] [address], [id number], . tel:[phone] Referring Provider: Hermes Ramirez [address], [address]. tel:[phone] Family History Family Member Type Diagnosis Age At Onset No Information Payers Payer name Insurance type Covered green party ID Authoriza tiyoan(s) [facility] [id number] Social History Type Description Quantity Date Captured Comments Sex Female Smoking Status No Information Chief Complaint And Reason For Visit No Information History Of Present Illness Encounter Date Complaint History Of Prese nt Illness No Information Instructions Date Instruction Additional Infor mation No Information Assessments Type Assessment Date No Information
--- OUTSIDE RECORDS SUMMARY | 2024-06-26 17:05 | XMS_ITS | Encounter Summary ---
Author Organization [facility] Address [address] [place] [address] Care Team Providers Care Sports Intern Name Role Phone Ashley ZUNIGA MD, Hermes Primary Care Provid er Lyly Fiore NP Primary Care Provider [phone] Encounter Details Date Type Department Care Team (Late st Contact Info) Description 08/25/2018 Abstract [facility] CONVERSION [address] [place] [address] , Generic Conversion, Social History Tobacco Use Types Packs/Day Years Used Date Smoking Tobacco: Every Day Cigarettes 0.5 15 Smokeless Tobacco: Never Alcohol Use Standard Drinks/Week Comments No 0 (1 standard drink = 0.6 oz pur e alcohol) Comments No Sex and Gender Information Value Date Recorded Sex Assigned at Female 04/05/2024 4:26 PM REMEDIATION PROJECT ENGINEER Legal Sex Female 9:15 PM REMEDIATION PROJECT ENGINEER Gender Identity Not on file Sexual Orientation Not on file documented as of this encounter Plan of Treatment Not on file documented as of this encounter Visit Diagnoses Not on filedocumented in this encounter Additional Health Concerns Infection Onset Date Last Indicated Resolved Time COVID-19 Rule Out 03/30/2020 03/30/2020 03/30/2020 9:29 PM REMEDIATION PROJECT ENGINEER COVID-19 Rule Out 03/30/2020 03/30/2020 03/31/2020 12:28 PM REMEDIATION PROJECT ENGINEER COVID-19 Rule Out 02/16/2024 02/16/2024 02/16/2024 9:16 PM REMEDIATION PROJECT ENGINEER Rhinovirus 02/16/2024 02/16/2024 02/26/2024 12:3 2 AM REMEDIATION PROJECT ENGINEER documented as of this encounter Care Teams Sports Intern Relationship Specialty Start Date End Date Hermes Ramirez III, MD [address] [address] PCP - General FAMILY PRACTICE 06/20/17 04/13/24 Lyly Fiore NP [address] [place] [address] PCP - General NURSE PRACTITIONER 04/14/24 documented as of this encounter
--- OUTSIDE RECORDS SUMMARY | 2024-06-26 17:05 | XMS_ITS | Encounter Summary ---
Author Organization [facility] Address [address] [place] [address] Phone Care Team Providers Care Director Of Midwifery/Staff Midwife Name Role Phone Beatriz Lee MD Unavailable [phone] Lyly Fiore LINES TENDER Primary Care Provider Taylor Kitchen RN Unavailable Unav ailable Reason for Referral * (Routine) - Pending Review Specialty Diagnoses / Procedures Referred By Contac t Referred To Contact Diagnoses Nicotine dependence with current use Beatriz Lee MD [address] [place] [address] Phone: tel: fax: Referral ID Status Reason Start Date Expiration Date V isits Requested Visits Authorized [id number] Pending Review 06/26/2024 07/26/2025 1 1 Question Answer Number to text [phone] After discussion, the patient consents to the exchange of information with [employer] for purposes of the patient's participation in the tobacco cessation program. Yes Encounter Details Date Type Department Care Team (Late st Contact Info) Description 06/26/2024 9:30 AM CDT Office Visit [facility] [address] [facility] [address] [place] [address] [place] [address] Beatriz Lee MD [address] [place] [address] Nicotine dependence with current use Social History [...] on file Legal Sex Female 10:10 PM ESCALATOR MECHANIC Gender Identity Not on file Sexual [...] 06/20/2024 added in this encounter Care Teams Director Of Midwifery/Staff Midwife Relationship Specialty Start Date End Date Lyly Fiore NP [address] [place] [address] PCP - General Nurse Practitioner 05/29/24 Beatriz Lee MD [address] [place] [address] Referring Physician Gastroenterology 07/25/19 Taylor Kitchen, polygraph operatorTube Teller 05/29/24 documented as of this encounter
--- OUTSIDE RECORDS SUMMARY | 2024-06-26 17:05 | XMS_ITS | Encounter Summary ---
Author Organization [facility] Healthcare Address [address] [place] [address] Care Team Providers Care Slip Tender Name Role Phone Beatriz Lee MD Unavailable [phone] Lyly Fiore NURSE LICENSED PRACTICAL Primary Care Provider Taylor Kitchen RN Unavailable Unav ailable Encounter Details Date Type Department Care Team (Late st Contact Info) Description 06/26/2024 Orders Only [facility] Transplant Liver [address] [facility] [address] [phone] [place] [address] Dafne Dukes, RN History of liver transplant [...] on file Legal Sex Female 10:10 PM AVIATION PROGRAM MANAGER Gender Identity Not on file Sexual [...] medications documented in this encounter Care Teams Slip Tender Relationship Specialty Start Date End Date Lyly Fiore NP [address] [place] [address] PCP - General Nurse Practitioner 05/29/24 Beatriz Lee MD [address] [place] [address] Referring Physician Gastroenterology 07/25/19 Taylor Kitchen, instructor warperChemical Engineer 05/29/24 documented as of this encounter
--- OUTSIDE RECORDS SUMMARY | 2024-06-26 17:05 | XMS_ITS | Encounter Summary ---
Author Organization [facility] Healthcare Address [address] [place] [address] Care Team Providers Care Imaging Technician Name Role Phone Beatriz Lee MD Unavailable [phone] Lyly Fiore CAN RECONDITIONER Primary Care Provider Taylor Kitchen RN Unavailable Unav ailable Encounter Details Date Type Department Care Team (Late st Contact Info) Description 06/26/[address] [facility] Transplant Liver [address] [facility] [address] [phone] [place] [address] Dafne Dukes, RN Social History Tobacco Use [...] on file Legal Sex Female 10:10 PM ASSOCIATE DENTIST Gender Identity Not on file Sexual Orientation Not on file documented as of this encounter Plan of Treatment Not on file documented as of this encounter Visit Diagnoses Not on filedocumented in this encounter Care Teams Imaging Technician Relationship Specialty Start Date End Date Lyly Fiore NP [address] [place] [address] PCP - General Nurse Practitioner 05/29/24 Beatriz Lee MD [address] [place] [address] Referring Physician Gastroenterology 07/25/19 Taylor Kitchen, assistant controllerClinical Research Specialist 05/29/24 documented as of this encounter
--- OUTSIDE RECORDS SUMMARY | 2024-06-26 17:05 | XMS_ITS | Encounter Summary ---
Author Organization [facility] Healthcare Address [address] [place] [address] Care Team Providers Care Cutter And Edge Trimmer Name Role Phone Beatriz Lee MD Unavailable [phone] Lyly Fiore DESIGN AND SALES CONSULTANT Primary Care Provider Taylor Kitchen RN Unavailable Unav ailable Encounter Details Date Type Department Care Team (Late st Contact Info) Description 06/26/2024 Orders Only [facility] [place] [facility] Transplant Liver [address] [facility] [address] [phone] [place] [address] Dafne Dukes, RN Status post liver transplant [...] on file Legal Sex Female 10:10 PM WORD PROCESSING MACHINE OPERATOR Gender Identity Not on file [...] medications documented in this encounter Care Teams Cutter And Edge Trimmer Relationship Specialty Start Date End Date Lyly Fiore NP [address] [place] [address] PCP - General Nurse Practitioner 05/29/24 Beatriz Lee MD [address] [place] [address] Referring Physician Gastroenterology 07/25/19 Taylor Kitchen, intelligence applicationsParcel Post Order Clerk 05/29/24 documented as of this encounter
--- OUTSIDE RECORDS SUMMARY | 2024-06-26 17:05 | XMS_ITS ---
Author Organization [facility] Address [address] [place] [address] Care Team Providers Care Branch Associate Name Role Phone Beatriz Lee MD Unavailable [phone] Lyly Fiore NP Primary Care Provider Taylor Kitchen RN Unavailable Unav ailable Transplant Episode Liver Recipient [facility] ([place], [place]) - [facility] Transplanted on 03/20/2020 Marked as Active Follow-up on 03/20/2020 Reason: Transplanted at Outside Center Liver CoordinatorTaylor Ktichen RN Phone: N/A Fax: N/A Email: N/A Transplanted Elsewhere: Center not on file Coordinator: Phone: Fax: [place] Organ Diagnosis Organ Primary Contributory Liver Biliary Atresia: Extrahepatic Care Team Name Role Phone Fax Email Taylor Kitchen RN Liver Coordinator N/A N /A N/A Events Post-Transplant Pre-Transplant Transplanted: 03/20/2020 Appointments (05/26/2024 - 07/26/2024) When With Visit Type Description 06/26/2024 Transplant - Juan J Lee New Nicotine dependence with current use
--- OUTSIDE RECORDS SUMMARY | 2024-06-26 17:05 | XMS_ITS | Encounter Summary ---
Author Organization [facility] Address [address] [place] [id number] Care Team Providers Care Can Stacker Name Role Phone Ashley ZUNIGA MD, Hermes Perez Primary Care Provid er Lyly Fiore NP Primary Care Provider [phone] Encounter Details Date Type Department Care Team (Late st Contact Info) Description 08/22/2018 Abstract [facility] [address] [place] [id number] Social History Tobacco Use Types Packs/Day Years Used Date Smoking Tobacco: Every Day Cigarettes 0.5 15 Smokeless Tobacco: Never Alcohol Use Standard Drinks/Week Comments No 0 (1 standard drink = 0.6 oz pur e alcohol) Comments No Sex and Gender Information Value Date Recorded Sex Assigned at Female 04/05/2024 4:26 PM BUCKLE COVERER Legal Sex Female 9:15 PM BUCKLE COVERER Gender Identity Not on file Sexual Orientation Not on file documented as of this encounter Plan of Treatment Not on file documented as of this encounter Visit Diagnoses Not on filedocumented in this encounter Additional Health Concerns Infection Onset Date Last Indicated Resolved Time COVID-19 Rule Out 03/30/2020 03/30/2020 03/30/2020 9:29 PM BUCKLE COVERER COVID-19 Rule Out 03/30/2020 03/30/2020 03/31/2020 12:28 PM BUCKLE COVERER COVID-19 Rule Out 02/16/2024 02/16/2024 02/16/2024 9:16 PM BUCKLE COVERER Rhinovirus 02/16/2024 02/16/2024 02/26/2024 12:3 2 AM BUCKLE COVERER documented as of this encounter Care Teams Can Stacker Relationship Specialty Start Date End Date Hermes Ramirez III, MD [address] [facility] [address] [place] [address] PCP - General FAMILY PRACTICE 06/20/17 04/13/24 Lyly Fiore NP [address] [place] [address] PCP - General NURSE PRACTITIONER 04/14/24 documented as of this encounter
--- OUTSIDE RECORDS SUMMARY | 2024-06-26 17:05 | XMS_ITS | Encounter Summary ---
Author Organization [facility] Address [address] [place] [address] Care Team Providers Care Rope Rider Name Role Phone Beatriz Lee MD Unavailable [phone] Lyly Fiore EDGING MACHINE SETTER Primary Care Provider Taylor Kitchen RN Unavailable Unav ailable Encounter Details Date Type Department Care Team (Late st Contact Info) Description 06/26/2024 Telephone [facility] Transplant Liver [address] [facility] [address] [phone] [place] [address] Lorena Turner Social History Tobacco Use Types [...] on file Legal 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 Lee) * Telephone Encounter - Lorena Turner - 06/26/2024 1:58 PM CDT Request was faxed for: 2023 liver and kidney biopsy slides from [facility] ( prob done or 11/2023) SO for GGT was faxed to [facility] lab - please add a GGT to her standing lab orders. documented in this encounter Plan of Treatment Not on file documented as of this encounter Visit Diagnoses Not on filedocumented in this encounter Care Teams Rope Rider Relationship Specialty Start Date End Date Lyly Fiore NP [address] [place] [address] PCP - General Nurse Practitioner 05/29/24 Beatriz Lee MD [address] [place] [address] Referring Physician Gastroenterology 07/25/19 Taylor Kitchen, card brusherAudiovisual Equipment Operator 05/29/24 documented as of this encounter
--- OUTSIDE RECORDS SUMMARY | 2024-06-26 17:05 | XMS_ITS | Referral Summary ---
Author Organization [facility] Address [address] [place] [address] Care Team Providers Care Public Policy Mediator Name Role Phone Beatriz Lee MD Unavailable [phone] Lyly Fiore NP Primary Care Provider Taylor Kitchen RN Unavailable Unav ailable Encounters Date Type Department Care Team Description 06/26/2024 Orders Only [facility] Transplant Liver [address] [facility] [address] [employer] [id number] [place] [address] Dafne Dukes, ANSON Status post liver transplant (HCC) (Primary Dx); Encounter for long-term (current) use of medications 06/26/2024 Telephone [facility] Transplant Liver [address] [facility] [place] [facility] [address] Mailstop [phone] [place] [address] Lorena Turner 06/26/2024 Orders Only [facility] Transplant Liver [address] [facility] [place] [facility] [address] Mailstop [phone] [place] [address] Dafne Dukes, ANSON History of liver transplant (HCC) (Primary Dx); Encounter for long-term (current) use of medications 06/26/2024 Documentation [facility] Transplant Liver [address] [facility] [place] [facility] [address] MailTabtorop [phone] [place] [address] Dafne Dukes RN 06/26/2024 Telephone [facility] Transplant Liver [address] [facility] [place] [facility] [address] Mailstop [phone] [place] [address] Dafne Dukes, ANSON 06/26/2024 9:30 AM CDT Office Visit [facility] Gasteroenterology [address] [facility] 12[address] [place] [address] [place] [id number] Beatriz Lee MD Nicotine dependence with current use 06/14/2024 SHOP/CHAP Initial Eligibility Review [facility] OP CASE MANAGEMENT [address] [place] [id number] Shireen Griffin RN 06/13/2024 Orders Only [facility] Transplant Liver [address] [place] [address] [address] Mailstop [phone] [place] [address] Dafne Dukes RN Kidney transplanted (Primary Dx) 05/29/2024 3:11 PM CDT - 06/13/2024 3:04 PM CDT Hospital Encounter [facility] [address] [place] [id number] Jessee Mandel MD Edwards, MD Pooja Felix, MD Scout Levin, MD David Santos, Patrick José MD Abdominal pain (Primary Dx); CHRISTY (acute kidney injury); Chronic generalized pain [R52, G89.29]; High risk medication use [Z79.899]; Hyperkalemia; Chronic bilateral low back pain without sciatica; 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 Discharge Disposition: Discharge to home or self care 06/06/2024 Telephone [facility] Transplant Kidney [address] [facility] [address] Mail[address] [id number] [place], [place] [id number] Netta Mcintosh 05/09/2024 Telephone [facility] Transplant Liver [address] [facility] [address] Mailstop [phone] [place] [address] Liyah Kamara 05/07/2024 Telephone [facility] Transplant Liver [address] [facility] [place] [facility] [address] Mailstop 03-30-291 [place] [address] Lorena Turnre 05/07/2024 Telephone [facility] Transplant Liver [address] [facility] [place] [facility] [address] Mailstop [phone] [place] [address] Lorena Turner 05/06/2024 Documentation [facility] Transplant Liver [address] [facility] [place] [facility] [address] Mailstop 88-07-777 [place] [address] Taylor Kitchen RN 05/06/2024 Telephone [facility] Transplant Liver [address] [facility] [place] [facility] [address] Mailstop [id number] [place] [address] Lorena Turner Referral - Liver Txp from [...] t be different from the original. Lab: [facility]. . . Pharmacy: [place], [place] Patient enrolled in [employer] assistance program for [employer] until 03/2025 -[facility] for script Problem Noted Date Diagnosed [...] Transplant starting process of assuming care from [facility], but in short term they recommend patient follow up with renal transplant at [facility]. - She is NOW actively enrolled in the [employer] free patient assistance program through mar 2025 - script needs to be sent to [facility] (sent). Hyperbilirubinemia 04/16/2020 Assessment & Plan (04/16/2020 5:01 AM POWER LINEMAN TECHNICIAN): - T. Bili of 7 (last was [...] 07/25/2019 Assessment & Plan (04/16/2020 2:25 AM POWER LINEMAN TECHNICIAN): See hyperbili problem. Concern for ascites Assessment [...] 12/14/2016 Assessment & Plan (04/16/2020 2:26 AM POWER LINEMAN TECHNICIAN): - Chronic, concerned that this may be [...] liver and kidney transplant 04/2020. 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 We would need to call [facility] to identify a contracted center ([phone]). She lives close enough to [place] that would be the most likely city she could travel to. She also noted that she could always remarry an ex- as he has insurance that may be covered at [facility]/. Appreciate note from nephrology and agree with restarting oral diuretics. Can continue tacrolimus at the current dose. MRI/MRCP completed and will review with radiology to identify if any role for PTC. Assessment & Plan (04/16/2020 2:26 AM POWER LINEMAN TECHNICIAN): S/p liver tranplant in 1992 for biliary [...] meds Assessment & Plan (04/16/2020 5:01 AM POWER LINEMAN TECHNICIAN): Unclear if progression of CKD vs acute [...] Cr of 1.8. She follows with local head bone grinder Dr. Mathew and thinks her baseline is 2.1. She was at 2.3 at [facility]. She took some diuretics at home and was given lasix at [facility] ED. --UA, urine lytes --get records from her head bone grinder to find out baseline --random tacro level [...] on file Legal Sex Female 10:10 PM POWER LINEMAN TECHNICIAN Gender Identity Not on file Sexual [...] CDT HEPATITIS PANEL, ACUTE Routine 6:35 AM POWER LINEMAN TECHNICIAN from Last 3 Months or Most Recently Relevant to Health Maintenance Results * (ABNORMAL) eGFR (06/13/2024 5:15 AM CDT) Pathologist [facility] eGFR 31(L) >=60 mL/min/1. 73 m2 Comment: [...] MD PhD LAB BLOOD ORDERABLES Final Result [facility] One [facility] [place] [address] * Differential, auto (06/13/2024 5:15 AM CDT) [facility] Neutrophil abs 3.2 1.5 - 6.5 K/cumm Imm gran abs 0.0 0.0 - 0.1 K/cumm [facility] Lymphocyte abs 0.9 0.8 - 3.3 K/cumm [facility] Monocyte abs 0.3 0.2 - 0.8 K/cumm [facility] Eosinophil abs 0.2 0.0 - 0.5 K/cumm [facility] Basophil abs 0.0 0.0 - 0.1 K/cumm [facility] Neutrophil pct 69.4 % [facility] Comment: Interpretive Data Percent cell count reference ranges are not reported, since discordance with absolute values may lead to misinterpretation of CBC data. Current Interpretive Data was last revised on 2017. Imm gran pct 0.2 % [facility] Comment: Interpretive Data Percent cell count reference ranges are not reported, since discordance with absolute values may lead to misinterpretation of CBC data. Current Interpretive Data was last revised on 2017. Lymphocyte pct 20.4 % [facility] Comment: Interpretive Data Percent cell count reference ranges are not reported, since discordance with absolute values may lead to misinterpretation of CBC data. Current Interpretive Data was last revised on 2017. Monocyte pct 5.9 % [facility] Comment: Interpretive Data Percent cell count reference ranges are not reported, since discordance with absolute values may lead to misinterpretation of CBC data. Current Interpretive Data was last revised on 2017. Eosinophil pct 3.9 % [facility] Comment: Interpretive Data Percent cell count reference ranges are not reported, since discordance with absolute values may lead to misinterpretation of CBC data. Current Interpretive Data was last revised on 2017. Basophil pct 0.2 % [facility] Comment: Interpretive Data Percent cell count reference ranges are not reported, since discordance with absolute values may lead to misinterpretation of CBC data. Current Interpretive Data was last revised on 2017. Blood 06/13/2024 5:15 AM CDT 06/13/2024 6:05 AM CDT us Martha Butterfield MD LAB BLOOD ORDERABLES F inal Result [facility] [place] [address] * Tacrolimus level trough (06/13/2024 5:15 AM CDT) Tacrolimus trough 7.4 ng/mL Comment: Interpretive Data Testing performed by liquid chromatography-tandem mass spectrometry. Therapeutic concentrations vary depending on type of transplanted organ and time elapsed since transplant. Typical trough concentrations range from 5-15 ng/mL. This test was developed and its performance characteristics determined by the [facility] consistent with CLIA requirements. This test has not been cleared or approved by the [place] Food and Drug administration. Current interpretive data last reviewed 2019. Blood 06/13/2024 5:15 AM CDT 06/13/2024 6:05 AM CDT us Patricia Davidson MD PhD LAB BLOOD ORDERABLES Final Result Performing Organization Address City/[facility]/ZIP Co de Phone Number [facility] [place] [address] * (ABNORMAL) CBC with auto differential (06/13/2024 5:15 AM CDT) WBC 4.6 3.8 - 9.9 K/cumm Hgb 11.1(L) 11.9 - 15.5 g/dL [facility] Hct 32.8(L) 35.6 - 45.5 % [facility] Plt 112(L) 150 - 400 K/cumm [facility] MPV 11.6 9.1 - 12.3 fL [facility] RBC 3.13(L) 3.90 - 5.20 M/cumm [facility] MCV 104.8(H) 81.3 - 96.4 fL [facility] MCH 35.5(H) 27.1 - 33.3 pg [facility] MCHC 33.8 32.3 - 35.7 g/dL [facility] RDW CV 14.8 11.1 - 14.9 % [facility] RDW SD 56.5(H) 35.7 - 48.1 fL [facility] NRBC abs 0.00 0.00 - 0.01 K/cumm [facility] Blood 06/13/2024 5:15 AM CDT 06/13/2024 6:05 AM CDT us Martha Butterfield MD LAB BLOOD ORDERABLES F inal Result Performing Organization Address City/[facility]/ZIP Co de Phone Number [facility] Department [place] [address] * (ABNORMAL) Renal function panel (06/13/2024 5:15 AM CDT) Pathologist [facility] Sodium 144 135 - 145 mmol/L Potassium, pl 4.9 3.3 - 4.9 mmol/L [facility] Chloride 111(H) 97 - 110 mmol/L [facility] CO2 25 22 - 32 mmol/L [facility] Anion gap 8 2 - 15 mmol/L [facility] BUN 27(H) 6 - 25 mg/dL [facility] Creatinine 2.03(H) 0.60 - 1.10 mg/dL [facility] Glucose 121 70 - 199 mg/dL [facility] Comment: Interpretive Data Fasting glucose [...] 2022. Calcium 8.6 8.5 - 10.3 mg/dL [facility] Phosphorus, pl 3.9 2.3 - 4.5 mg/dL [facility] Albumin 3.6 3.5 - 5.0 g/dL [facility] Blood 06/13/2024 5:15 AM CDT 06/13/2024 6:05 AM CDT us Patricia Davidson MD PhD LAB BLOOD ORDERABLES Final Result [facility] [place] [address] * (ABNORMAL) eGFR (06/12/2024 5:52 AM CDT) [...] BLOOD ORDERABLES Final Result Performing Organization Address [facility] de Phone Number [facility] [address] [facility] [place] [address] * Tacrolimus level trough (06/12/2024 5:52 AM CDT) [facility] Signature Tacrolimus trough 6.2 ng/mL Comment: Interpretive Data Testing performed by liquid chromatography-tandem mass spectrometry. Therapeutic concentrations vary depending on type of transplanted organ and time elapsed since transplant. Typical trough concentrations range from 5-15 ng/mL. This test was developed and its performance characteristics determined by the [facility] consistent with CLIA requirements. This test has not been cleared or approved by the US Food and Drug administration. Current interpretive data last reviewed 2019. Blood 06/12/2024 5:52 AM CDT 06/12/2024 6:18 AM CDT Patricia Davidson MD PhD LAB BLOOD ORDERABLES Final Result Performing Organization Address City/[facility]/ZIP Co de Phone Number [facility] [address] [facility] Department [place] [address] * (ABNORMAL) Renal function panel (06/12/2024 5:52 AM CDT) Pathologist [facility] Sodium 145 135 - 145 mmol/L Potassium, pl 5.0(H) 3.3 - 4.9 mmol/L [facility] Chloride 112(H) 97 - 110 mmol/L [facility] CO2 27 22 - 32 mmol/L [facility] Anion gap 6 2 - 15 mmol/L [facility] BUN 30(H) 6 - 25 mg/dL [facility] Creatinine 2.16(H) 0.60 - 1.10 mg/dL [facility] Glucose 101 70 - 199 mg/dL [facility] Comment: Interpretive Data Fasting glucose [...] 2022. Calcium 8.7 8.5 - 10.3 mg/dL [facility] Phosphorus, pl 4.3 2.3 - 4.5 mg/dL [facility] Albumin 3.4(L) 3.5 - 5.0 g/dL [facility] Blood 06/12/2024 5:52 AM CDT 06/12/2024 6:17 AM CDT us Patricia Davidson MD PhD LAB BLOOD ORDERABLES Final Result [facility] [place] [address] * Potassium, whole blood (06/11/2024 11:29 PM CDT) [facility] Potassium, bld 4.7 3.3 - 4.9 mmol/L Blood 06/11/2024 11:2 9 PM CDT 06/11/2024 11:48 PM CDT Patrick Hernandez MD LAB BLOOD ORDERABLES Fi nal Result [facility] Department [place] [address] * (ABNORMAL) eGFR (06/11/2024 5:14 AM CDT) [facility] eGFR 28(L) >=60 mL/min/1. 73 m2 Comment: [...] MD PhD LAB BLOOD ORDERABLES Final Result [facility] Department [place] [address] * Differential, auto (06/11/2024 5:14 AM CDT) Neutrophil abs 2.3 1.5 - 6.5 K/cumm Imm gran abs 0.0 0.0 - 0.1 K/cumm [facility] Lymphocyte abs 1.0 0.8 - 3.3 K/cumm [facility] Monocyte abs 0.3 0.2 - 0.8 K/cumm [facility] Eosinophil abs 0.2 0.0 - 0.5 K/cumm [facility] Basophil abs 0.0 0.0 - 0.1 K/cumm [facility] Neutrophil pct 61.8 % [facility] Comment: Interpretive Data Percent cell count reference ranges are not reported, since discordance with absolute values may lead to misinterpretation of CBC data. Current Interpretive Data was last revised on 2017. Imm gran pct 0.5 % [facility] Comment: Interpretive Data Percent cell count reference ranges are not reported, since discordance with absolute values may lead to misinterpretation of CBC data. Current Interpretive Data was last revised on 2017. Lymphocyte pct 26.6 % [facility] Comment: Interpretive Data Percent cell count reference ranges are not reported, since discordance with absolute values may lead to misinterpretation of CBC data. Current Interpretive Data was last revised on 2017. Monocyte pct 6.6 % [facility] Comment: Interpretive Data Percent cell count reference ranges are not reported, since discordance with absolute values may lead to misinterpretation of CBC data. Current Interpretive Data was last revised on 2017. Eosinophil pct 4.2 % [facility] Comment: Interpretive Data Percent cell count reference ranges are not reported, since discordance with absolute values may lead to misinterpretation of CBC data. Current Interpretive Data was last revised on 2017. Basophil pct 0.3 % [facility] Comment: Interpretive Data Percent cell count reference ranges are not reported, since discordance with absolute values may lead to misinterpretation of CBC data. Current Interpretive Data was last revised on 2017. Blood 06/11/2024 5:14 AM CDT 06/11/2024 6:24 AM CDT us Martha Butterfield MD LAB BLOOD ORDERABLES F inal Result Performing Organization Address [facility] de Phone Number [facility] [place] [address] * Tacrolimus level trough (06/11/2024 5:14 AM CDT) [facility] Tacrolimus trough 5.4 ng/mL Comment: Interpretive Data Testing performed by liquid chromatography-tandem mass spectrometry. Therapeutic concentrations vary depending on type of transplanted organ and time elapsed since transplant. Typical trough concentrations range from 5-15 ng/mL. This test was developed and its performance characteristics determined by the [facility] consistent with CLIA requirements. This test has not been cleared or approved by the US Food and Drug administration. Current interpretive data last reviewed 2019. Blood 06/11/2024 5:14 AM CDT 06/11/2024 5:51 AM CDT Patricia Davidson MD PhD LAB BLOOD ORDERABLES Final Result Performing Organization Address [facility] de Phone Number [facility] Department [place] [address] * (ABNORMAL) CBC with auto differential (06/11/2024 5:14 AM CDT) [facility] WBC 3.8 3.8 - 9.9 K/cumm Hgb 10.3(L) 11.9 - 15.5 g/dL [facility] Hct 30.0(L) 35.6 - 45.5 % [facility] Plt 93(L) 150 - 400 K/cumm [facility] MPV 11.5 9.1 - 12.3 fL [facility] RBC 2.82(L) 3.90 - 5.20 M/cumm [facility] MCV 106.4(H) 81.3 - 96.4 fL [facility] MCH 36.5(H) 27.1 - 33.3 pg [facility] MCHC 34.3 32.3 - 35.7 g/dL [facility] RDW CV 14.5 11.1 - 14.9 % [facility] RDW SD 55.4(H) 35.7 - 48.1 fL [facility] NRBC abs 0.00 0.00 - 0.01 K/cumm [facility] Blood 06/11/2024 5:14 AM CDT 06/11/2024 6:24 AM CDT us Martha Butterfield MD LAB BLOOD ORDERABLES F inal Result [facility] Department [place] [address] * (ABNORMAL) Renal function panel (06/11/2024 5:14 AM CDT) Sodium 141 135 - 145 mmol/L Potassium, pl 4.6 3.3 - 4.9 mmol/L [facility] Chloride 109 97 - 110 mmol/L [facility] CO2 23 22 - 32 mmol/L [facility] Anion gap 9 2 - 15 mmol/L [facility] BUN 29(H) 6 - 25 mg/dL [facility] Creatinine 2.24(H) 0.60 - 1.10 mg/dL [facility] Glucose 133 70 - 199 mg/dL [facility] Comment: Interpretive Data Fasting glucose [...] 2022. Calcium 8.6 8.5 - 10.3 mg/dL [facility] Phosphorus, pl 3.8 2.3 - 4.5 mg/dL [facility] Albumin 3.4(L) 3.5 - 5.0 g/dL [facility] Blood 06/11/2024 5:14 AM CDT 06/11/2024 5:51 AM CDT Patricia Davidson MD PhD LAB BLOOD ORDERABLES Final Result Performing Organization Address [facility] Co de Phone Number [facility] [place] [address] * Potassium, whole blood (06/10/2024 10:18 PM CDT) Potassium, bld 4.7 3.3 - 4.9 mmol/L Blood 06/10/2024 10:1 8 PM CDT 06/10/2024 11:20 PM CDT Result [facility] Martha Butterfield MD LAB BLOOD ORDERABLES F inal Result Performing Organization Address [facility] de Phone Number [facility] [place] [address] * POCT glucose (06/10/2024 1:15 PM CDT) Glucose, POC 145 70 - 199 mg/dL Blood 06/10/2024 1:15 PM CDT 06/10/2024 1:15 PM CDT Result [facility] Martha Butterfield MD LAB POCT ORDERABLES - DEVICE Final Result Performing Organization Address [facility] de Phone Number [facility] [place] [address] * Potassium (06/10/2024 10:34 AM CDT) Potassium, pl 4.7 3.3 - 4.9 mmol/L Blood 06/10/2024 10:3 4 AM CDT 06/10/2024 11:28 AM CDT Martha Butterfield MD LAB BLOOD ORDERABLES F inal Result Performing Organization Address City/[facility] Co de Phone Number [facility] [place] [address] * (ABNORMAL) Hepatic function panel (06/10/2024 10:34 AM CDT) Bilirubin, total 0.7 0.1 - 1.2 mg/dL Bilirubin, direct 0.3 0.1 - 0.3 mg/dL [facility] Protein, pl 6.3(L) 6.5 - 8.5 g/dL [facility] Albumin 3.7 3.5 - 5.0 g/dL [facility] Alk phos 253(H) 40 - 130 Units/L [facility] ALT 23 7 - 45 Units/L [facility] AST 25 10 - 45 Units/L [facility] Blood 06/10/2024 10:3 4 AM CDT 06/10/2024 11:28 AM CDT us Martha Butterfield MD LAB BLOOD ORDERABLES F inal Result Performing Organization Address [facility]/ZIP Co de Phone Number [facility] [place] [address] * POCT glucose (06/10/2024 9:48 AM CDT) Glucose, POC 157 70 - 199 mg/dL Blood 06/10/2024 9:4 8 AM CDT 06/10/2024 9:48 AM CDT Martha Butterfield MD LAB POCT ORDERABLES - DEVICE Final Result Performing Organization Address City/[facility]/ZIP Co de Phone Number [facility] [place] [address] * POCT glucose (06/10/2024 6:35 AM CDT) Glucose, POC 137 70 - 199 mg/dL Blood 06/10/2024 6:35 AM CDT 06/10/2024 6:35 AM CDT us Martha Butterfield MD LAB POCT ORDERABLES - DEVICE Final Result Performing Organization Address [facility] Co de Phone Number [facility] [place] [address] * (ABNORMAL) Potassium, whole blood (06/10/2024 4:17 AM CDT) Potassium, bld 5.2(H) 3.3 - 4.9 mmol/L Blood 06/10/2024 4:17 AM CDT 06/10/2024 4:24 AM CDT us Lyndsey Ramos MD LAB BLOOD ORDERABLES Aniya l Result Performing Organization Address [facility] Co de Phone Number [facility] [place] [address] * (ABNORMAL) eGFR (06/10/2024 4:14 AM CDT) [...] BLOOD ORDERABLES Final Result Performing Organization Address [facility] de Phone Number [facility] of Laboratories [place] [address] * Tacrolimus level trough (06/10/2024 4:14 AM CDT) [facility] Tacrolimus trough 9.6 ng/mL Comment: Interpretive Data Testing performed by liquid chromatography-tandem mass spectrometry. Therapeutic concentrations vary depending on type of transplanted organ and time elapsed since transplant. Typical trough concentrations range from 5-15 ng/mL. This test was developed and its performance characteristics determined by the [facility] consistent with CLIA requirements. This test has not been cleared or approved by the [place] Food and Drug administration. Current interpretive data last reviewed 2019. Blood 06/10/2024 4:14 AM CDT 06/10/2024 4:32 AM CDT Patricia Davidson MD PhD LAB BLOOD ORDERABLES Final Result Performing Organization Address [facility] Phone Number [facility] [place] [address] * (ABNORMAL) Renal function panel (06/10/2024 4:14 AM CDT) [facility] Sodium 142 135 - 145 mmol/L Potassium, pl 5.6(H) 3.3 - 4.9 mmol/L [facility] Comment:Hemolyzed; Potassium value may be falsely elevated by as much as 0.3-0.5 mmol/L. Suggest redraw and reanalysis. Chloride 112(H) 97 - 110 mmol/L [facility] CO2 24 22 - 32 mmol/L [facility] Anion gap 6 2 - 15 mmol/L [facility] BUN 29(H) 6 - 25 mg/dL [facility] Creatinine 2.11(H) 0.60 - 1.10 mg/dL [facility] Glucose 158 70 - 199 mg/dL [facility] Comment: Interpretive Data Fasting glucose [...] 2022. Calcium 9.1 8.5 - 10.3 mg/dL [facility] Phosphorus, pl 3.7 2.3 - 4.5 mg/dL [facility] Albumin 3.6 3.5 - 5.0 g/dL [facility] Blood 06/10/2024 4:14 AM CDT 06/10/2024 4:32 AM CDT us Patricia Davidson MD PhD LAB BLOOD ORDERABLES Final Result [facility] [place] [address] * (ABNORMAL) POCT glucose (06/10/2024 2:27 AM CDT) [facility] Glucose, POC 210(H) 70 - 199 mg/dL Blood 06/10/2024 2:27 AM CDT 06/10/2024 2:27 AM CDT us Martha Butterfield MD LAB POCT ORDERABLES - DEVICE Final Result [facility] [place] [address] * (ABNORMAL) POCT glucose (06/10/2024 1:25 AM CDT) Glucose, POC 277(H) 70 - 199 mg/dL Blood 06/10/2024 1:25 AM CDT 06/10/2024 1:25 AM CDT Martha Butterfield MD LAB POCT ORDERABLES - DEVICE Final Result Performing Organization Address City/[facility] Co de Phone Number [facility] [place] [address] * POCT glucose (06/10/2024 12:24 AM CDT) [facility] Glucose, POC 138 70 - 199 mg/dL Blood 06/10/2024 12:2 4 AM CDT 06/10/2024 12:24 AM CDT Martha Butterfield MD LAB POCT ORDERABLES - DEVICE Final Result Performing Organization Address City/[facility] de Phone Number [facility] [place] [address] * ECG 12 lead (06/10/2024 12:20 AM CDT) [facility] Ventricular Rate EKG/Min 65 BPM [facility] Atrial Rate 65 BPM [facility] AK-Interval (MSEC) 160 ms [facility] QRS-Interval (MSEC) 72 ms [facility] QT-Interval (MSEC) 452 ms [facility] QTc 470 ms [facility] P [place] -11 degrees [facility] R [place] -16 degrees [facility] T [place] 54 degrees [facility] Diagnosis Normal sinus rhythm Low voltage [...] Septal leads Confirmed by BRODIE LEIGH M.D ([id number]) on 06/11/2024 10:14:44 AM [facility] 06/10/2024 12:2 0 AM CDT 06/11/2024 10:14 AM CDT Martha Butterfield MD ECG ORDERABLES Final Result [facility] * (ABNORMAL) Potassium, whole blood (06/09/2024 11:26 PM CDT) Potassium, bld 5.7(H) 3.3 - 4.9 mmol/L Blood 06/09/2024 11:2 6 PM CDT 06/09/2024 11:37 PM CDT Martha Butterfield MD LAB BLOOD ORDERABLES F inal Result Performing Organization Address City/[facility] Co de Phone Number [facility] Department [place] [address] * (ABNORMAL) eGFR (06/09/2024 6:33 PM CDT) [...] MD LAB BLOOD ORDERABLES F inal Result [facility] [place] [address] * (ABNORMAL) Renal function panel (06/09/2024 6:33 PM CDT) Sodium 141 135 - 145 mmol/L Potassium, pl 5.5(H) 3.3 - 4.9 mmol/L [facility] Comment:Hemolyzed; Potassium value may be falsely elevated by as much as 0.3-0.5 mmol/L. Suggest redraw and reanalysis. Chloride 112(H) 97 - 110 mmol/L [facility] CO2 17(L) 22 - 32 mmol/L [facility] Anion gap 12 2 - 15 mmol/L [facility] BUN 32(H) 6 - 25 mg/dL [facility] Creatinine 2.08(H) 0.60 - 1.10 mg/dL [facility] Glucose 111 70 - 199 mg/dL [facility] Comment: Interpretive Data Fasting glucose [...] 2022. Calcium 8.7 8.5 - 10.3 mg/dL [facility] Phosphorus, pl 4.0 2.3 - 4.5 mg/dL [facility] Albumin 3.1(L) 3.5 - 5.0 g/dL [facility] Blood 06/09/2024 6:33 PM CDT 06/09/2024 6:48 PM CDT us Martha Butterfield MD LAB BLOOD ORDERABLES F inal Result Performing Organization Address [facility] Co de Phone Number [facility] [place] [address] * (ABNORMAL) eGFR (06/09/2024 5:12 AM CDT) Pathologist [facility] eGFR 30(L) >=60 mL/min/1. 73 m2 Comment: [...] BLOOD ORDERABLES Final Result Performing Organization Address City/[facility]/ZIP Co de Phone Number [facility] [place] [address] * Differential, auto (06/09/2024 5:12 AM CDT) [facility] Neutrophil abs 2.5 1.5 - 6.5 K/cumm Imm gran abs 0.0 0.0 - 0.1 K/cumm [facility] Lymphocyte abs 1.0 0.8 - 3.3 K/cumm [facility] Monocyte abs 0.4 0.2 - 0.8 K/cumm [facility] Eosinophil abs 0.2 0.0 - 0.5 K/cumm [facility] Basophil abs 0.0 0.0 - 0.1 K/cumm [facility] Neutrophil pct 61.7 % [facility] Comment: Interpretive Data Percent cell count reference ranges are not reported, since discordance with absolute values may lead to misinterpretation of CBC data. Current Interpretive Data was last revised on 2017. Imm gran pct 0.2 % [facility] Comment: Interpretive Data Percent cell count reference ranges are not reported, since discordance with absolute values may lead to misinterpretation of CBC data. Current Interpretive Data was last revised on 2017. Lymphocyte pct 25.2 % [facility] Comment: Interpretive Data Percent cell count reference ranges are not reported, since discordance with absolute values may lead to misinterpretation of CBC data. Current Interpretive Data was last revised on 2017. Monocyte pct 8.8 % [facility] Comment: Interpretive Data Percent cell count reference ranges are not reported, since discordance with absolute values may lead to misinterpretation of CBC data. Current Interpretive Data was last revised on 2017. Eosinophil pct 3.9 % [facility] Comment: Interpretive Data Percent cell count reference ranges are not reported, since discordance with absolute values may lead to misinterpretation of CBC data. Current Interpretive Data was last revised on 2017. Basophil pct 0.2 % [facility] Comment: Interpretive Data Percent cell count reference ranges are not reported, since discordance with absolute values may lead to misinterpretation of CBC data. Current Interpretive Data was last revised on 2017. Blood 06/09/2024 5:12 AM CDT 06/09/2024 5:43 AM CDT us Martha Butterfield MD LAB BLOOD ORDERABLES F inal Result [facility] [place] [address] * Tacrolimus level trough (06/09/2024 5:12 AM CDT) [facility] Tacrolimus trough 7.5 ng/mL Comment: Interpretive Data Testing performed by liquid chromatography-tandem mass spectrometry. Therapeutic concentrations vary depending on type of transplanted organ and time elapsed since transplant. Typical trough concentrations range from 5-15 ng/mL. This test was developed and its performance characteristics determined by the [facility] consistent with CLIA requirements. This test has not been cleared or approved by the US Food and Drug administration. Current interpretive data last reviewed 2019. Blood 06/09/2024 5:12 AM CDT 06/09/2024 5:43 AM CDT us Patricia Davidson MD PhD LAB BLOOD ORDERABLES Final Result [facility] [place] [address] * (ABNORMAL) CBC with auto differential (06/09/2024 5:12 AM CDT) [facility] WBC 4.1 3.8 - 9.9 K/cumm Hgb 10.9(L) 11.9 - 15.5 g/dL [facility] Hct 32.1(L) 35.6 - 45.5 % [facility] Plt 104(L) 150 - 400 K/cumm [facility] MPV 11.5 9.1 - 12.3 fL [facility] RBC 3.05(L) 3.90 - 5.20 M/cumm [facility] MCV 105.2(H) 81.3 - 96.4 fL [facility] MCH 35.7(H) 27.1 - 33.3 pg [facility] MCHC 34.0 32.3 - 35.7 g/dL [facility] RDW CV 14.7 11.1 - 14.9 % [facility] RDW SD 55.7(H) 35.7 - 48.1 fL [facility] NRBC abs 0.00 0.00 - 0.01 K/cumm [facility] Blood 06/09/2024 5:12 AM CDT 06/09/2024 5:43 AM CDT us Martha Butterfield MD LAB BLOOD ORDERABLES F inal Result [facility] [place] [address] * (ABNORMAL) Renal function panel (06/09/2024 5:12 AM CDT) Sodium 144 135 - 145 mmol/L Potassium, pl 5.1(H) 3.3 - 4.9 mmol/L [facility] Chloride 111(H) 97 - 110 mmol/L [facility] CO2 23 22 - 32 mmol/L [facility] Anion gap 10 2 - 15 mmol/L [facility] BUN 33(H) 6 - 25 mg/dL [facility] Creatinine 2.08(H) 0.60 - 1.10 mg/dL [facility] Glucose 104 70 - 199 mg/dL [facility] Comment: Interpretive Data Fasting glucose [...] 2022. Calcium 8.7 8.5 - 10.3 mg/dL [facility] Phosphorus, pl 4.4 2.3 - 4.5 mg/dL [facility] Albumin 3.5 3.5 - 5.0 g/dL [facility] Blood 06/09/2024 5:12 AM CDT 06/09/2024 5:43 AM CDT us Patricia Davidson MD PhD LAB BLOOD ORDERABLES Final Result Performing Organization Address City/[facility]/ZIP Co de Phone Number [facility] [place] [address] * (ABNORMAL) Potassium, whole blood (06/08/2024 8:37 AM CDT) Potassium, bld 5.0(H) 3.3 - 4.9 mmol/L Blood 06/08/2024 8:37 AM CDT 06/08/2024 9:17 AM CDT Martha Butterfield MD LAB BLOOD ORDERABLES F inal Result Performing Organization Address [facility] Co de Phone Number [facility] Department [place] [address] * (ABNORMAL) eGFR (06/08/2024 5:40 AM CDT) [...] BLOOD ORDERABLES Final Result Performing Organization Address [facility] Co de Phone Number [facility] [place] [address] * Tacrolimus level trough (06/08/2024 5:40 AM CDT) Tacrolimus trough 6.6 ng/mL Comment: Interpretive Data Testing performed by liquid chromatography-tandem mass spectrometry. Therapeutic concentrations vary depending on type of transplanted organ and time elapsed since transplant. Typical trough concentrations range from 5-15 ng/mL. This test was developed and its performance characteristics determined by the [facility] consistent with CLIA requirements. This test has not been cleared or approved by the US Food and Drug administration. Current interpretive data last reviewed 2019. Blood 06/08/2024 5:40 AM CDT 06/08/2024 6:19 AM CDT Result [facility] Patricia Davidson MD PhD LAB BLOOD ORDERABLES Final Result Performing Organization Address [facility] Co de Phone Number [facility] [place] [address] * (ABNORMAL) Renal function panel (06/08/2024 5:40 AM CDT) Pathologist [facility] Sodium 144 135 - 145 mmol/L Potassium, pl 5.1(H) 3.3 - 4.9 mmol/L [facility] Chloride 114(H) 97 - 110 mmol/L [facility] CO2 23 22 - 32 mmol/L [facility] Anion gap 7 2 - 15 mmol/L [facility] BUN 31(H) 6 - 25 mg/dL [facility] Creatinine 2.07(H) 0.60 - 1.10 mg/dL [facility] Glucose 100 70 - 199 mg/dL [facility] Comment: Interpretive Data Fasting glucose [...] 2022. Calcium 8.7 8.5 - 10.3 mg/dL [facility] Phosphorus, pl 4.5 2.3 - 4.5 mg/dL [facility] Albumin 3.3(L) 3.5 - 5.0 g/dL [facility] Blood 06/08/2024 5:40 AM CDT 06/08/2024 6:19 AM CDT us Patricia Davidson MD PhD LAB BLOOD ORDERABLES Final Result [facility] [place] [address] * (ABNORMAL) eGFR (06/07/2024 5:17 AM CDT) [...] MD PhD LAB BLOOD ORDERABLES Final Result [facility] [place] [address] * Differential, auto (06/07/2024 5:17 AM CDT) Neutrophil abs 2.9 1.5 - 6.5 K/cumm Imm gran abs 0.0 0.0 - 0.1 K/cumm [facility] Lymphocyte abs 1.1 0.8 - 3.3 K/cumm [facility] Monocyte abs 0.3 0.2 - 0.8 K/cumm [facility] Eosinophil abs 0.2 0.0 - 0.5 K/cumm [facility] Basophil abs 0.0 0.0 - 0.1 K/cumm [facility] Neutrophil pct 64.2 % [facility] Comment: Interpretive Data Percent cell count reference ranges are not reported, since discordance with absolute values may lead to misinterpretation of CBC data. Current Interpretive Data was last revised on 2017. Imm gran pct 0.2 % [facility] Comment: Interpretive Data Percent cell count reference ranges are not reported, since discordance with absolute values may lead to misinterpretation of CBC data. Current Interpretive Data was last revised on 2017. Lymphocyte pct 24.2 % [facility] Comment: Interpretive Data Percent cell count reference ranges are not reported, since discordance with absolute values may lead to misinterpretation of CBC data. Current Interpretive Data was last revised on 2017. Monocyte pct 7.2 % [facility] Comment: Interpretive Data Percent cell count reference ranges are not reported, since discordance with absolute values may lead to misinterpretation of CBC data. Current Interpretive Data was last revised on 2017. Eosinophil pct 4.0 % [facility] Comment: Interpretive Data Percent cell count reference ranges are not reported, since discordance with absolute values may lead to misinterpretation of CBC data. Current Interpretive Data was last revised on 2017. Basophil pct 0.2 % [facility] Comment: Interpretive Data Percent cell count reference ranges are not reported, since discordance with absolute values may lead to misinterpretation of CBC data. Current Interpretive Data was last revised on 2017. Blood 06/07/2024 5:17 AM CDT 06/07/2024 6:14 AM CDT Martha Butterfield MD LAB BLOOD ORDERABLES F inal Result Performing Organization Address [facility] de Phone Number [facility] [place] [address] * Tacrolimus level trough (06/07/2024 5:17 AM CDT) [facility] Tacrolimus trough 6.2 ng/mL Comment: Interpretive Data Testing performed by liquid chromatography-tandem mass spectrometry. Therapeutic concentrations vary depending on type of transplanted organ and time elapsed since transplant. Typical trough concentrations range from 5-15 ng/mL. This test was developed and its performance characteristics determined by the [facility] consistent with CLIA requirements. This test has not been cleared or approved by the [place] Food and Drug administration. Current interpretive data last reviewed 2019. Blood 06/07/2024 5:17 AM CDT 06/07/2024 6:14 AM CDT us Patricia Davidson MD PhD LAB BLOOD ORDERABLES Final Result Performing Organization Address [facility] de Phone Number [facility] [place] [place] [address] * (ABNORMAL) CBC with auto differential (06/07/2024 5:17 AM CDT) [facility] WBC 4.5 3.8 - 9.9 K/cumm Hgb 10.7(L) 11.9 - 15.5 g/dL [facility] Hct 31.3(L) 35.6 - 45.5 % [facility] Plt 100(L) 150 - 400 K/cumm [facility] MPV 11.8 9.1 - 12.3 fL [facility] RBC 2.96(L) 3.90 - 5.20 M/cumm [facility] MCV 105.7(H) 81.3 - 96.4 fL [facility] MCH 36.1(H) 27.1 - 33.3 pg [facility] MCHC 34.2 32.3 - 35.7 g/dL [facility] RDW CV 14.2 11.1 - 14.9 % [facility] RDW SD 53.7(H) 35.7 - 48.1 fL [facility] NRBC abs 0.00 0.00 - 0.01 K/cumm [facility] Blood 06/07/2024 5:17 AM CDT 06/07/2024 6:14 AM CDT us Martha Butterfield MD LAB BLOOD ORDERABLES F inal Result [facility] [place] [address] * (ABNORMAL) Renal function panel (06/07/2024 5:17 AM CDT) Sodium 137 135 - 145 mmol/L Potassium, pl 4.9 3.3 - 4.9 mmol/L [facility] Chloride 108 97 - 110 mmol/L [facility] CO2 21(L) 22 - 32 mmol/L [facility] Anion gap 8 2 - 15 mmol/L [facility] BUN 28(H) 6 - 25 mg/dL [facility] Creatinine 1.92(H) 0.60 - 1.10 mg/dL [facility] Glucose 125 70 - 199 mg/dL [facility] Comment: Interpretive Data Fasting glucose [...] 2022. Calcium 8.1(L) 8.5 - 10.3 mg/dL [facility] Phosphorus, pl 3.8 2.3 - 4.5 mg/dL [facility] Albumin 3.4(L) 3.5 - 5.0 g/dL [facility] Blood 06/07/2024 5:17 AM CDT 06/07/2024 6:13 AM CDT Patricia Davidson MD PhD LAB BLOOD ORDERABLES Final Result [facility] [place] [address] * Potassium, whole blood (06/06/2024 11:29 AM CDT) Pathologist [facility] Potassium, bld 4.9 3.3 - 4.9 mmol/L Blood 06/06/2024 11:2 9 AM CDT 06/06/2024 12:20 PM CDT Martha Butterfield MD LAB BLOOD ORDERABLES F inal Result Performing Organization Address City/[facility]/ZIP Co de Phone Number [facility] [place] [address] * (ABNORMAL) eGFR (06/06/2024 4:28 AM CDT) [...] BLOOD ORDERABLES Final Result Performing Organization Address [facility] Co de Phone Number [facility] [place] [address] * Tacrolimus level trough (06/06/2024 4:28 AM CDT) Pathologist [facility] Tacrolimus trough 5.9 ng/mL Comment: Interpretive Data Testing performed by liquid chromatography-tandem mass spectrometry. Therapeutic concentrations vary depending on type of transplanted organ and time elapsed since transplant. Typical trough concentrations range from 5-15 ng/mL. This test was developed and its performance characteristics determined by the [facility] consistent with CLIA requirements. This test has not been cleared or approved by the [place] Food and Drug administration. Current interpretive data last reviewed 2019. Blood 06/06/2024 4:28 AM CDT 06/06/2024 5:44 AM CDT Patricia Davidson MD PhD LAB BLOOD ORDERABLES Final Result Performing Organization Address City/[facility]/ZIP Co de Phone Number [facility] [place] [address] * (ABNORMAL) Renal function panel (06/06/2024 4:28 AM CDT) Sodium 143 135 - 145 mmol/L Potassium, pl 5.3(H) 3.3 - 4.9 mmol/L [facility] Chloride 113(H) 97 - 110 mmol/L [facility] CO2 23 22 - 32 mmol/L [facility] Anion gap 7 2 - 15 mmol/L [facility] BUN 30(H) 6 - 25 mg/dL [facility] Creatinine 1.99(H) 0.60 - 1.10 mg/dL [facility] Glucose 86 70 - 199 mg/dL [facility] Comment: Interpretive Data Fasting glucose [...] 2022. Calcium 8.5 8.5 - 10.3 mg/dL [facility] Phosphorus, pl 4.1 2.3 - 4.5 mg/dL [facility] Albumin 3.1(L) 3.5 - 5.0 g/dL [facility] Blood 06/06/2024 4:28 AM CDT 06/06/2024 5:36 AM CDT us Patricia Davidson MD PhD LAB BLOOD ORDERABLES Final Result [facility] [place] [address] * (ABNORMAL) eGFR (06/05/2024 5:49 AM CDT) [...] MD PhD LAB BLOOD ORDERABLES Final Result [facility] [place] [address] * Differential, auto (06/05/2024 5:49 AM CDT) Pathologist [facility] Neutrophil abs 2.5 1.5 - 6.5 K/cumm Imm gran abs 0.0 0.0 - 0.1 K/cumm [facility] Lymphocyte abs 1.0 0.8 - 3.3 K/cumm [facility] Monocyte abs 0.4 0.2 - 0.8 K/cumm [facility] Eosinophil abs 0.1 0.0 - 0.5 K/cumm [facility] Basophil abs 0.0 0.0 - 0.1 K/cumm [facility] Neutrophil pct 62.5 % [facility] Comment: Interpretive Data Percent cell count reference ranges are not reported, since discordance with absolute values may lead to misinterpretation of CBC data. Current Interpretive Data was last revised on 2017. Imm gran pct 0.3 % [facility] Comment: Interpretive Data Percent cell count reference ranges are not reported, since discordance with absolute values may lead to misinterpretation of CBC data. Current Interpretive Data was last revised on 2017. Lymphocyte pct 24.3 % [facility] Comment: Interpretive Data Percent cell count reference ranges are not reported, since discordance with absolute values may lead to misinterpretation of CBC data. Current Interpretive Data was last revised on 2017. Monocyte pct 9.3 % [facility] Comment: Interpretive Data Percent cell count reference ranges are not reported, since discordance with absolute values may lead to misinterpretation of CBC data. Current Interpretive Data was last revised on 2017. Eosinophil pct 3.3 % [facility] [facility] Comment: Interpretive Data Percent cell count reference ranges are not reported, since discordance with absolute values may lead to misinterpretation of CBC data. Current Interpretive Data was last revised on 2017. Basophil pct 0.3 % [facility] Comment: Interpretive Data Percent cell count reference ranges are not reported, since discordance with absolute values may lead to misinterpretation of CBC data. Current Interpretive Data was last revised on 2017. Blood 06/05/2024 5:49 AM CDT 06/05/2024 6:48 AM CDT Patricia Davidson MD PhD LAB BLOOD ORDERABLES Final Result Performing Organization Address [facility] de Phone Number [facility] [place] [address] * Tacrolimus level trough (06/05/2024 5:49 AM CDT) [facility] Tacrolimus trough 5.9 ng/mL Comment: Interpretive Data Testing performed by liquid chromatography-tandem mass spectrometry. Therapeutic concentrations vary depending on type of transplanted organ and time elapsed since transplant. Typical trough concentrations range from 5-15 ng/mL. This test was developed and its performance characteristics determined by the [facility] consistent with CLIA requirements. This test has not been cleared or approved by the [place] Food and Drug administration. Current interpretive data last reviewed 2019. Blood 06/05/2024 5:49 AM CDT 06/05/2024 6:48 AM CDT Patricia Davidson MD PhD LAB BLOOD ORDERABLES Final Result Performing Organization Address [facility]/ZIP Co de Phone Number [facility] [place] [address] * (ABNORMAL) CBC with auto differential (06/05/2024 5:49 AM CDT) [facility] WBC 4.0 3.8 - 9.9 K/cumm Hgb 10.9(L) 11.9 - 15.5 g/dL [facility] Hct 31.7(L) 35.6 - 45.5 % [facility] Plt 102(L) 150 - 400 K/cumm [facility] MPV 11.6 9.1 - 12.3 fL [facility] RBC 3.05(L) 3.90 - 5.20 M/cumm [facility] MCV 103.9(H) 81.3 - 96.4 fL [facility] MCH 35.7(H) 27.1 - 33.3 pg [facility] MCHC 34.4 32.3 - 35.7 g/dL [facility] RDW CV 14.0 11.1 - 14.9 % [facility] RDW SD 52.3(H) 35.7 - 48.1 fL [facility] NRBC abs 0.00 0.00 - 0.01 K/cumm [facility] Blood 06/05/2024 5:49 AM CDT 06/05/2024 6:48 AM CDT us Patricia Davidson MD PhD LAB BLOOD ORDERABLES Final Result [facility] Department [place] [address] * (ABNORMAL) Renal function panel (06/05/2024 5:49 AM CDT) [facility] Sodium 140 135 - 145 mmol/L Potassium, pl 4.6 3.3 - 4.9 mmol/L [facility] Chloride 109 97 - 110 mmol/L [facility] CO2 22 22 - 32 mmol/L [facility] Anion gap 9 2 - 15 mmol/L [facility] BUN 29(H) 6 - 25 mg/dL [facility] Creatinine 1.99(H) 0.60 - 1.10 mg/dL [facility] Glucose 98 70 - 199 mg/dL [facility] Comment: Interpretive Data Fasting glucose [...] 2022. Calcium 8.6 8.5 - 10.3 mg/dL [facility] Phosphorus, pl 4.3 2.3 - 4.5 mg/dL [facility] Albumin 3.5 3.5 - 5.0 g/dL [facility] Blood 06/05/2024 5:49 AM CDT 06/05/2024 6:48 AM CDT us Patricia Davidson MD PhD LAB BLOOD ORDERABLES Final Result [facility] [place] [address] * ECG 12 lead (06/04/2024 5:41 AM CDT) Ventricular Rate EKG/Min 67 BPM [facility] Atrial Rate 67 BPM [facility] AK-Interval (MSEC) 202 ms [facility] QRS-Interval (MSEC) 74 ms [facility] QT-Interval (MSEC) 426 ms [facility] QTc 450 ms [facility] P [place] 5 degrees [facility] R [place] -19 degrees [facility] T [place] 53 degrees [facility] Diagnosis Normal sinus rhythm 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) Abnormal ECG When compared with ECG of 30-MAY-2024 01:10, QT has shortened Confirmed by LYNDSEY TUCKER M.D ([id number]) on 06/05/2024 5:57:41 AM [facility] 06/04/2024 5:41 AM CDT 06/05/2024 5:57 AM CDT Pineda Barrios MD ECG ORDERABLES Final Result Performing Organization Address City/[facility] de Phone Number [facility] * (ABNORMAL) eGFR (06/04/2024 5:10 AM CDT) [...] BLOOD ORDERABLES Final Result Performing Organization Address City/[facility]/ZIP Co de Phone Number [facility] [place] [address] * Differential, auto (06/04/2024 5:10 AM CDT) Neutrophil abs 3.1 1.5 - 6.5 K/cumm Imm gran abs 0.0 0.0 - 0.1 K/cumm [facility] Lymphocyte abs 1.3 0.8 - 3.3 K/cumm [facility] Monocyte abs 0.5 0.2 - 0.8 K/cumm [facility] Eosinophil abs 0.2 0.0 - 0.5 K/cumm [facility] Basophil abs 0.0 0.0 - 0.1 K/cumm [facility] Neutrophil pct 61.7 % [facility] Comment: Interpretive Data Percent cell count reference ranges are not reported, since discordance with absolute values may lead to misinterpretation of CBC data. Current Interpretive Data was last revised on 2017. Imm gran pct 0.4 % [facility] Comment: Interpretive Data Percent cell count reference ranges are not reported, since discordance with absolute values may lead to misinterpretation of CBC data. Current Interpretive Data was last revised on 2017. Lymphocyte pct 25.2 % [facility] Comment: Interpretive Data Percent cell count reference ranges are not reported, since discordance with absolute values may lead to misinterpretation of CBC data. Current Interpretive Data was last revised on 2017. Monocyte pct 9.1 % [facility] Comment: Interpretive Data Percent cell count reference ranges are not reported, since discordance with absolute values may lead to misinterpretation of CBC data. Current Interpretive Data was last revised on 2017. Eosinophil pct 3.0 % [facility] Comment: Interpretive Data Percent cell count reference ranges are not reported, since discordance with absolute values may lead to misinterpretation of CBC data. Current Interpretive Data was last revised on 2017. Basophil pct 0.6 % [facility] Comment: Interpretive Data Percent cell count reference ranges are not reported, since discordance with absolute values may lead to misinterpretation of CBC data. Current Interpretive Data was last revised on 2017. Blood 06/04/2024 5:10 AM CDT 06/04/2024 6:22 AM CDT us Patricia Davidson MD PhD LAB BLOOD ORDERABLES Final Result [facility] [place] [address] * Tacrolimus level trough (06/04/2024 5:10 AM CDT) [facility] Tacrolimus trough 6.1 ng/mL Comment: Interpretive Data Testing performed by liquid chromatography-tandem mass spectrometry. Therapeutic concentrations vary depending on type of transplanted organ and time elapsed since transplant. Typical trough concentrations range from 5-15 ng/mL. This test was developed and its performance characteristics determined by the [facility] consistent with CLIA requirements. This test has not been cleared or approved by the US Food and Drug administration. Current interpretive data last reviewed 2019. Blood 06/04/2024 5:10 AM CDT 06/04/2024 6:22 AM CDT Patricia Davidson MD PhD LAB BLOOD ORDERABLES Final Result [facility] [place] [address] * (ABNORMAL) CBC with auto differential (06/04/2024 5:10 AM CDT) [facility] WBC 5.0 3.8 - 9.9 K/cumm Hgb 11.2(L) 11.9 - 15.5 g/dL [facility] Hct 32.3(L) 35.6 - 45.5 % [facility] Plt 102(L) 150 - 400 K/cumm [facility] MPV 11.6 9.1 - 12.3 fL [facility] RBC 3.13(L) 3.90 - 5.20 M/cumm [facility] MCV 103.2(H) 81.3 - 96.4 fL [facility] MCH 35.8(H) 27.1 - 33.3 pg [facility] MCHC 34.7 32.3 - 35.7 g/dL [facility] RDW CV 13.7 11.1 - 14.9 % [facility] RDW SD 51.2(H) 35.7 - 48.1 fL [facility] NRBC abs 0.00 0.00 - 0.01 K/cumm [facility] Blood 06/04/2024 5:10 AM CDT 06/04/2024 6:22 AM CDT us Patricia Davidson MD PhD LAB BLOOD ORDERABLES Final Result [facility] [place] [address] * (ABNORMAL) Renal function panel (06/04/2024 5:10 AM CDT) Pathologist [facility] Sodium 144 135 - 145 mmol/L Potassium, pl 4.8 3.3 - 4.9 mmol/L [facility] Chloride 112(H) 97 - 110 mmol/L [facility] CO2 23 22 - 32 mmol/L [facility] Anion gap 9 2 - 15 mmol/L [facility] BUN 25 6 - 25 mg/dL [facility] Creatinine 1.98(H) 0.60 - 1.10 mg/dL [facility] Glucose 81 70 - 199 mg/dL [facility] Comment: Interpretive Data Fasting glucose [...] 2022. Calcium 8.9 8.5 - 10.3 mg/dL [facility] Phosphorus, pl 4.3 2.3 - 4.5 mg/dL [facility] Albumin 3.4(L) 3.5 - 5.0 g/dL [facility] Blood 06/04/2024 5:10 AM CDT 06/04/2024 6:23 AM CDT Patricia Davidson MD PhD LAB BLOOD ORDERABLES Final Result Performing Organization Address City/State/[facility] Co de Phone Number [facility] [place] [address] * Folate (06/04/2024 12:39 AM CDT) [facility] Folic acid See Comment >=5.0 ng/mL Comment: Credited; Hemolyzed Specimen Telephone report made to: Luz Maria Iyer RN on 06/04/2024 08:49:44 CDT by SAUD . Blood 06/04/2024 12:3 9 AM CDT 06/04/2024 1:24 AM CDT us Shea Babcock MD LAB BLOOD ORDERABLE S Final Result Performing Organization Address [facility] Co de Phone Number [facility] [place] [address] * Protein / creatinine ratio, urine, random (06/03/2024 6:15 PM CDT) [facility] Protein, ur, quant <5.0 mg/dL Comment: Interpretive Data No reference range established. Current interpretive data was last revised 2018. Creatinine Ur 39.1 mg/dL [facility] Comment: Interpretive Data No reference range established. Current interpretive data was last revised 2018. Protein/creatinin e ratio <127.9 0.0 - 180.0 mg/g CR [facility] Urine 06/03/2024 6:15 PM CDT 06/03/2024 7:42 PM CDT us Pineda Barrios MD LAB URINE ORDXavier RABVERONICA Final Result Performing Organization Address [facility] Co de Phone Number [facility] [place] [address] * (ABNORMAL) eGFR (06/03/2024 8:54 AM CDT) [...] MD PhD LAB BLOOD ORDERABLES Final Result [facility] [place] [address] * Differential, auto (06/03/2024 8:54 AM CDT) Pathologist [facility] Neutrophil abs 2.8 1.5 - 6.5 K/cumm Imm gran abs 0.0 0.0 - 0.1 K/cumm [facility] Lymphocyte abs 1.3 0.8 - 3.3 K/cumm [facility] Monocyte abs 0.4 0.2 - 0.8 K/cumm [facility] Eosinophil abs 0.2 0.0 - 0.5 K/cumm [facility] Basophil abs 0.0 0.0 - 0.1 K/cumm [facility] Neutrophil pct 59.1 % [facility] Comment: Interpretive Data Percent cell count reference ranges are not reported, since discordance with absolute values may lead to misinterpretation of CBC data. Current Interpretive Data was last revised on 2017. Imm gran pct 0.4 % [facility] Comment: Interpretive Data Percent cell count reference ranges are not reported, since discordance with absolute values may lead to misinterpretation of CBC data. Current Interpretive Data was last revised on 2017. Lymphocyte pct 27.4 % [facility] Comment: Interpretive Data Percent cell count reference ranges are not reported, since discordance with absolute values may lead to misinterpretation of CBC data. Current Interpretive Data was last revised on 2017. Monocyte pct 9.1 % [facility] Comment: Interpretive Data Percent cell count reference ranges are not reported, since discordance with absolute values may lead to misinterpretation of CBC data. Current Interpretive Data was last revised on 2017. Eosinophil pct 3.8 % [facility] Comment: Interpretive Data Percent cell count reference ranges are not reported, since discordance with absolute values may lead to misinterpretation of CBC data. Current Interpretive Data was last revised on 2017. Basophil pct 0.2 % [facility] Comment: Interpretive Data Percent cell count reference ranges are not reported, since discordance with absolute values may lead to misinterpretation of CBC data. Current Interpretive Data was last revised on 2017. Blood 06/03/2024 8:54 AM CDT 06/03/2024 9:23 AM CDT us Patricia Davidson MD PhD LAB BLOOD ORDERABLES Final Result [facility] [place] [address] * Tacrolimus level trough (06/03/2024 8:54 AM CDT) Tacrolimus trough 4.9 ng/mL Comment: Interpretive Data Testing performed by liquid chromatography-tandem mass spectrometry. Therapeutic concentrations vary depending on type of transplanted organ and time elapsed since transplant. Typical trough concentrations range from 5-15 ng/mL. This test was developed and its performance characteristics determined by the [facility] consistent with CLIA requirements. This test has not been cleared or approved by the [place] Food and Drug administration. Current interpretive data last reviewed 2019. Blood 06/03/2024 8:54 AM CDT 06/03/2024 9:22 AM CDT Patricia Davidson MD PhD LAB BLOOD ORDERABLES Final Result Performing Organization Address [facility] Co de Phone Number [facility] [place] [place] [address] * (ABNORMAL) CBC with auto differential (06/03/2024 8:54 AM CDT) WBC 4.7 3.8 - 9.9 K/cumm Hgb 11.6(L) 11.9 - 15.5 g/dL [facility] Hct 32.6(L) 35.6 - 45.5 % [facility] Plt 121(L) 150 - 400 K/cumm [facility] MPV 11.0 9.1 - 12.3 fL [facility] RBC 3.19(L) 3.90 - 5.20 M/cumm [facility] MCV 102.2(H) 81.3 - 96.4 fL [facility] MCH 36.4(H) 27.1 - 33.3 pg [facility] MCHC 35.6 32.3 - 35.7 g/dL [facility] RDW CV 13.5 11.1 - 14.9 % [facility] RDW SD 49.6(H) 35.7 - 48.1 fL [facility] NRBC abs 0.00 0.00 - 0.01 K/cumm [facility] Blood 06/03/2024 8:54 AM CDT 06/03/2024 9:23 AM CDT us Patricia Davidson MD PhD LAB BLOOD ORDERABLES Final Result Performing Organization Address [facility] Co de Phone Number [facility] [place] [place] [address] * CRP (acute phase) (06/03/2024 8:54 AM CDT) CRP 6.5 <=10.0 mg/L Blood 06/03/2024 8:54 AM CDT 06/03/2024 9:25 AM CDT Pineda Barrios MD LAB BLOOD ORDE COURTNEY Final Result [facility] [place] [address] * (ABNORMAL) Renal function panel (06/03/2024 8:54 AM CDT) Pathologist [facility] Sodium 143 135 - 145 mmol/L Potassium, pl 4.6 3.3 - 4.9 mmol/L [facility] Chloride 110 97 - 110 mmol/L [facility] CO2 23 22 - 32 mmol/L [facility] Anion gap 10 2 - 15 mmol/L [facility] BUN 21 6 - 25 mg/dL [facility] Creatinine 1.93(H) 0.60 - 1.10 mg/dL [facility] Glucose 125 70 - 199 mg/dL [facility] Comment: Interpretive Data Fasting glucose [...] 2022. Calcium 9.1 8.5 - 10.3 mg/dL [facility] Phosphorus, pl 3.5 2.3 - 4.5 mg/dL [facility] Albumin 3.5 3.5 - 5.0 g/dL [facility] Blood 06/03/2024 8:54 AM CDT 06/03/2024 9:25 AM CDT us Patricia Davidson MD PhD LAB BLOOD ORDERABLES Final Result [facility] [place] [address] * (ABNORMAL) eGFR (06/03/2024 2:22 AM CDT) Pathologist [facility] eGFR 34(L) >=60 mL/min/1. 73 m2 Comment: [...] MD LAB BLOOD ORDE RABLES Final Result [facility] [place] [address] * Differential, auto (06/03/2024 2:22 AM CDT) Pathologist [facility] Neutrophil abs 2.5 1.5 - 6.5 K/cumm Imm gran abs 0.0 0.0 - 0.1 K/cumm [facility] Lymphocyte abs 1.2 0.8 - 3.3 K/cumm [facility] Monocyte abs 0.4 0.2 - 0.8 K/cumm [facility] Eosinophil abs 0.1 0.0 - 0.5 K/cumm [facility] Basophil abs 0.0 0.0 - 0.1 K/cumm [facility] Neutrophil pct 58.3 % [facility] Comment: Interpretive Data Percent cell count reference ranges are not reported, since discordance with absolute values may lead to misinterpretation of CBC data. Current Interpretive Data was last revised on 2017. Imm gran pct 0.5 % [facility] Comment: Interpretive Data Percent cell count reference ranges are not reported, since discordance with absolute values may lead to misinterpretation of CBC data. Current Interpretive Data was last revised on 2017. Lymphocyte pct 28.7 % [facility] Comment: Interpretive Data Percent cell count reference ranges are not reported, since discordance with absolute values may lead to misinterpretation of CBC data. Current Interpretive Data was last revised on 2017. Monocyte pct 9.2 % [facility] Comment: Interpretive Data Percent cell count reference ranges are not reported, since discordance with absolute values may lead to misinterpretation of CBC data. Current Interpretive Data was last revised on 2017. Eosinophil pct 3.1 % [facility] Comment: Interpretive Data Percent cell count reference ranges are not reported, since discordance with absolute values may lead to misinterpretation of CBC data. Current Interpretive Data was last revised on 2017. Basophil pct 0.2 % [facility] Comment: Interpretive Data Percent cell count reference ranges are not reported, since discordance with absolute values may lead to misinterpretation of CBC data. Current Interpretive Data was last revised on 2017. Blood 06/03/2024 2:22 AM CDT 06/03/2024 2:57 AM CDT Pineda Barrios MD LAB BLOOD ORDXavier VALDEZ Final Result [facility] [place] [address] * (ABNORMAL) Iron profile w/ IBC (06/03/2024 2:22 AM CDT) Iron 104 35 - 145 mcg/dL TIBC 192(L) 250 - 400 mcg/dL [facility] Transferrin saturation 54(H) 20 - 50 % [facility] Blood 06/03/2024 2:22 AM CDT 06/03/2024 2:57 AM CDT us Shea Babcock MD LAB BLOOD ORDERABLE S Final Result [facility] [place] [address] * (ABNORMAL) CBC with auto differential (06/03/2024 2:22 AM CDT) Pathologist [facility] WBC 4.2 3.8 - 9.9 K/cumm Hgb 11.5(L) 11.9 - 15.5 g/dL [facility] Hct 32.9(L) 35.6 - 45.5 % [facility] Plt 120(L) 150 - 400 K/cumm [facility] MPV 11.2 9.1 - 12.3 fL [facility] RBC 3.24(L) 3.90 - 5.20 M/cumm [facility] MCV 101.5(H) 81.3 - 96.4 fL [facility] MCH 35.5(H) 27.1 - 33.3 pg [facility] MCHC 35.0 32.3 - 35.7 g/dL [facility] RDW CV 13.4 11.1 - 14.9 % [facility] RDW SD 49.9(H) 35.7 - 48.1 fL [facility] NRBC abs 0.00 0.00 - 0.01 K/cumm [facility] Blood 06/03/2024 2:22 AM CDT 06/03/2024 2:57 AM CDT us Pineda Barrios MD LAB BLOOD RICO VALDEZ Final Result [facility] [place] [address] * Tacrolimus level random (06/03/2024 2:22 AM CDT) Tacrolimus random 6.3 ng/mL Comment: Interpretive Data Testing performed by liquid chromatography-tandem mass spectrometry. Therapeutic concentrations vary depending on type of transplanted organ and time elapsed since transplant. Typical trough concentrations range from 5-15 ng/mL. This test was developed and its performance characteristics determined by the [facility] consistent with CLIA requirements. This test has not been cleared or approved by the [place] Food and Drug administration. Current interpretive data last reviewed 2019. Blood 06/03/2024 2:22 AM CDT 06/03/2024 2:57 AM CDT us Pineda Barrios MD LAB BLOOD RICO VALDEZ Final Result [facility] [place] [address] * TSH (06/03/2024 2:22 AM CDT) Thyroid Stimulating Hormone 1.91 0.30 - 4.20 mcIUnit/mL Blood 06/03/2024 2:22 AM CDT 06/03/2024 2:57 AM CDT us Shea Babcock MD LAB BLOOD ORDERABLE S Final Result [facility] [place] [address] * (ABNORMAL) Ferritin (06/03/2024 2:22 AM CDT) Ferritin 213(H) 13 - 150 ng/mL Blood 06/03/2024 2:22 AM CDT 06/03/2024 2:57 AM CDT us Shea Babcock MD LAB BLOOD ORDERABLE S Final Result Performing Organization Address City/[facility]/ZIP Co de Phone Number [facility] [place] [address] * Vitamin B12 (06/03/2024 2:22 AM CDT) Pathologist [facility] Vitamin B12 749 230 - 1,250 pg/mL Blood 06/03/2024 2:22 AM CDT 06/03/2024 2:57 AM CDT Shea Babcock MD LAB BLOOD ORDERABLE S Final Result Performing Organization Address [facility] de Phone Number [facility] [place] [address] * (ABNORMAL) Renal function panel (06/03/2024 2:22 AM CDT) Pathologist [facility] Sodium 144 135 - 145 mmol/L Potassium, pl 5.0(H) 3.3 - 4.9 mmol/L [facility] Chloride 111(H) 97 - 110 mmol/L [facility] CO2 25 22 - 32 mmol/L [facility] Anion gap 8 2 - 15 mmol/L [facility] BUN 23 6 - 25 mg/dL [facility] Creatinine 1.86(H) 0.60 - 1.10 mg/dL [facility] Glucose 102 70 - 199 mg/dL [facility] Comment: Interpretive Data Fasting glucose [...] 2022. Calcium 9.2 8.5 - 10.3 mg/dL [facility] Phosphorus, pl 3.1 2.3 - 4.5 mg/dL [facility] Albumin 3.8 3.5 - 5.0 g/dL [facility] Blood 06/03/2024 2:22 AM CDT 06/03/2024 2:57 AM CDT Pineda Barrios MD LAB BLOOD ORDE RABLES Final Result [facility] [place] [address] * (ABNORMAL) eGFR (06/02/2024 8:43 AM CDT) [...] BLOOD ORDERABLES Final Result [facility] [place] [address] * Differential, auto (06/02/2024 8:43 AM CDT) Neutrophil abs 2.3 1.5 - 6.5 K/cumm Imm gran abs 0.0 0.0 - 0.1 K/cumm [facility] Lymphocyte abs 1.3 0.8 - 3.3 K/cumm [facility] Monocyte abs 0.4 0.2 - 0.8 K/cumm [facility] Eosinophil abs 0.1 0.0 - 0.5 K/cumm [facility] Basophil abs 0.0 0.0 - 0.1 K/cumm [facility] Neutrophil pct 55.6 % [facility] Comment: Interpretive Data Percent cell count reference ranges are not reported, since discordance with absolute values may lead to misinterpretation of CBC data. Current Interpretive Data was last revised on 2017. Imm gran pct 0.2 % [facility] Comment: Interpretive Data Percent cell count reference ranges are not reported, since discordance with absolute values may lead to misinterpretation of CBC data. Current Interpretive Data was last revised on 2017. Lymphocyte pct 30.7 % [facility] Comment: Interpretive Data Percent cell count reference ranges are not reported, since discordance with absolute values may lead to misinterpretation of CBC data. Current Interpretive Data was last revised on 2017. Monocyte pct 10.1 % [facility] Comment: Interpretive Data Percent cell count reference ranges are not reported, since discordance with absolute values may lead to misinterpretation of CBC data. Current Interpretive Data was last revised on 2017. Eosinophil pct 3.2 % [facility] Comment: Interpretive Data Percent cell count reference ranges are not reported, since discordance with absolute values may lead to misinterpretation of CBC data. Current Interpretive Data was last revised on 2017. Basophil pct 0.2 % [facility] Comment: Interpretive Data Percent cell count reference ranges are not reported, since discordance with absolute values may lead to misinterpretation of CBC data. Current Interpretive Data was last revised on 2017. Blood 06/02/2024 8:43 AM CDT 06/02/2024 9:14 AM CDT Patricia Davidson MD PhD LAB BLOOD ORDERABLES Final Result Performing Organization Address [facility] de Phone Number [facility] [place] [address] * Tacrolimus level trough (06/02/2024 8:43 AM CDT) [facility] Tacrolimus trough 3.8 ng/mL Comment: Interpretive Data Testing performed by liquid chromatography-tandem mass spectrometry. Therapeutic concentrations vary depending on type of transplanted organ and time elapsed since transplant. Typical trough concentrations range from 5-15 ng/mL. This test was developed and its performance characteristics determined by the [facility] consistent with CLIA requirements. This test has not been cleared or approved by the US Food and Drug administration. Current interpretive data last reviewed 2019. Blood 06/02/2024 8:43 AM CDT 06/02/2024 9:14 AM CDT Patricia Davidson MD PhD LAB BLOOD ORDERABLES Final Result Performing Organization Address [facility] de Phone Number [facility] [place] [address] * (ABNORMAL) CBC with auto differential (06/02/2024 8:43 AM CDT) [facility] WBC 4.1 3.8 - 9.9 K/cumm Hgb 10.8(L) 11.9 - 15.5 g/dL [facility] Hct 30.5(L) 35.6 - 45.5 % [facility] Plt 105(L) 150 - 400 K/cumm [facility] MPV 11.6 9.1 - 12.3 fL [facility] RBC 3.03(L) 3.90 - 5.20 M/cumm [facility] MCV 100.7(H) 81.3 - 96.4 fL [facility] MCH 35.6(H) 27.1 - 33.3 pg [facility] MCHC 35.4 32.3 - 35.7 g/dL [facility] RDW CV 13.3 11.1 - 14.9 % [facility] RDW SD 48.2(H) 35.7 - 48.1 fL [facility] NRBC abs 0.00 0.00 - 0.01 K/cumm [facility] Blood 06/02/2024 8:43 AM CDT 06/02/2024 9:14 AM CDT us Patricia Davidson MD PhD LAB BLOOD ORDERABLES Final Result [facility] [place] [address] * (ABNORMAL) Renal function panel (06/02/2024 8:43 AM CDT) Sodium 143 135 - 145 mmol/L Potassium, pl 5.1(H) 3.3 - 4.9 mmol/L [facility] Comment:Hemolyzed; Potassium value may be falsely elevated by as much as 0.3-0.5 mmol/L. Suggest redraw and reanalysis. Chloride 111(H) 97 - 110 mmol/L [facility] CO2 26 22 - 32 mmol/L [facility] Anion gap 6 2 - 15 mmol/L [facility] BUN 22 6 - 25 mg/dL [facility] Creatinine 1.93(H) 0.60 - 1.10 mg/dL [facility] Glucose 108 70 - 199 mg/dL [facility] Comment: Interpretive Data Fasting glucose [...] 2022. Calcium 8.8 8.5 - 10.3 mg/dL [facility] Phosphorus, pl 3.5 2.3 - 4.5 mg/dL [facility] Albumin 3.4(L) 3.5 - 5.0 g/dL [facility] Blood 06/02/2024 8:43 AM CDT 06/02/2024 9:14 AM CDT us Patricia Davidson MD PhD LAB BLOOD ORDERABLES Final Result Performing Organization Address City/[facility]/ZIP Co de Phone Number [facility] [place] [address] * Immunoglobulin profile (06/01/2024 9:10 PM CDT) Pathologist [facility] Immunoglobulin G 882 700 - 1,600 mg/dL Immunoglobulin A 213 70 - 400 mg/dL [facility] Immunoglobulin M 92 40 - 230 mg/dL [facility] Blood 06/01/2024 9:10 PM CDT 06/01/2024 10:48 PM CDT Pineda Barrios MD LAB BLOOD ORDE RABLES Final Result Performing Organization Address City/[facility]/ZIP Co de Phone Number [facility] [place] [address] * Differential, auto (06/01/2024 10:03 AM CDT) Neutrophil abs 3.5 1.5 - 6.5 K/cumm Imm gran abs 0.0 0.0 - 0.1 K/cumm [facility] Lymphocyte abs 1.3 0.8 - 3.3 K/cumm [facility] Monocyte abs 0.4 0.2 - 0.8 K/cumm [facility] Eosinophil abs 0.2 0.0 - 0.5 K/cumm [facility] Basophil abs 0.0 0.0 - 0.1 K/cumm [facility] Neutrophil pct 65.5 % [facility] Comment: Interpretive Data Percent cell count reference ranges are not reported, since discordance with absolute values may lead to misinterpretation of CBC data. Current Interpretive Data was last revised on 2017. Imm gran pct 0.2 % [facility] Comment: Interpretive Data Percent cell count reference ranges are not reported, since discordance with absolute values may lead to misinterpretation of CBC data. Current Interpretive Data was last revised on 2017. Lymphocyte pct 23.6 % [facility] Comment: Interpretive Data Percent cell count reference ranges are not reported, since discordance with absolute values may lead to misinterpretation of CBC data. Current Interpretive Data was last revised on 2017. Monocyte pct 7.7 % [facility] Comment: Interpretive Data Percent cell count reference ranges are not reported, since discordance with absolute values may lead to misinterpretation of CBC data. Current Interpretive Data was last revised on 2017. Eosinophil pct 2.8 % [facility] Comment: Interpretive Data Percent cell count reference ranges are not reported, since discordance with absolute values may lead to misinterpretation of CBC data. Current Interpretive Data was last revised on 2017. Basophil pct 0.2 % [facility] Comment: Interpretive Data Percent cell count reference ranges are not reported, since discordance with absolute values may lead to misinterpretation of CBC data. Current Interpretive Data was last revised on 2017. Blood 06/01/2024 10:0 3 AM CDT 06/01/2024 10:19 AM CDT us Patricia Davidson MD PhD LAB BLOOD ORDERABLES Final Result [facility] Department of Laboratories [place], [place] [id number] * (ABNORMAL) CBC with auto differential (06/01/2024 10:03 AM CDT) WBC 5.3 3.8 - 9.9 K/cumm Hgb 12.1 11.9 - 15.5 g/dL [facility] Hct 34.0(L) 35.6 - 45.5 % [facility] Plt 98(L) 150 - 400 K/cumm [facility] MPV 11.6 9.1 - 12.3 fL [facility] RBC 3.44(L) 3.90 - 5.20 M/cumm [facility] MCV 98.8(H) 81.3 - 96.4 fL [facility] MCH 35.2(H) 27.1 - 33.3 pg [facility] MCHC 35.6 32.3 - 35.7 g/dL [facility] RDW CV 12.8 11.1 - 14.9 % [facility] RDW SD 45.8 35.7 - 48.1 fL [facility] NRBC abs 0.00 0.00 - 0.01 K/cumm [facility] Blood 06/01/2024 10:0 3 AM CDT 06/01/2024 10:19 AM CDT Patricia Davidson MD PhD LAB BLOOD ORDERABLES Final Result Performing Organization Address [facility] de Phone Number [facility] [place] [address] * Tacrolimus level trough (06/01/2024 9:20 AM CDT) [facility] Tacrolimus trough 6.5 ng/mL Comment: Interpretive Data Testing performed by liquid chromatography-tandem mass spectrometry. Therapeutic concentrations vary depending on type of transplanted organ and time elapsed since transplant. Typical trough concentrations range from 5-15 ng/mL. This test was developed and its performance characteristics determined by the [facility] consistent with CLIA requirements. This test has not been cleared or approved by the US Food and Drug administration. Current interpretive data last reviewed 2019. Blood 06/01/2024 9:20 AM CDT 06/01/2024 9:53 AM CDT us Patricia Davidson MD PhD LAB BLOOD ORDERABLES Final Result Performing Organization Address City/[facility]/ZIP Co de Phone Number [facility] Department [place] [address] * (ABNORMAL) eGFR (06/01/2024 6:17 AM CDT) [...] MD PhD LAB BLOOD ORDERABLES Final Result [facility] [place] [address] * (ABNORMAL) Renal function panel (06/01/2024 6:17 AM CDT) Sodium 135 135 - 145 mmol/L Potassium, pl 4.5 3.3 - 4.9 mmol/L [facility] Chloride 103 97 - 110 mmol/L [facility] CO2 22 22 - 32 mmol/L [facility] Anion gap 10 2 - 15 mmol/L [facility] BUN 24 6 - 25 mg/dL [facility] Creatinine 2.15(H) 0.60 - 1.10 mg/dL [facility] Glucose 120 70 - 199 mg/dL [facility] Comment: Interpretive Data Fasting glucose [...] 2022. Calcium 8.7 8.5 - 10.3 mg/dL [facility] Phosphorus, pl 2.8 2.3 - 4.5 mg/dL [facility] Albumin 3.6 3.5 - 5.0 g/dL [facility] Blood 06/01/2024 6:17 AM CDT 06/01/2024 6:52 AM CDT us Patricia Davidson MD PhD LAB BLOOD ORDERABLES Final Result [facility] [place] [address] * TRANSTHORACIC ECHO (TTE) COMPLETE W DOPPLER/CF WO CONTRAST (05/31/2024 2:50 PM CDT) Anatomical Region Laterality Modality Ultrasound 05/31/2024 2:12 PM CDT Narrative 05/31/2024 3:36 PM CDT [facility] [place] [address] Transthoracic Echocardiographic Report Patient Name: MISHA BROWNE : 1980 (43y 7m) Gender: F Study Date: 05/31/2024 02:12:33 PM Ht(Inch): 63 Wt(Lb): 184.97 BSA: 1.93 Layup Worker: Elisabeth Em RDCS Location: [id number] Order Provider: PINEDA HINOJOSA Heart Rate: 61 [...] trileaflet aortic valve. Mild aortic valve regurgitation (OJW=870 ms). The mean transaortic gradient is 4 [...] LA Length 4C 6.78 cm AI Decel Snyder 2.15 m/s2 LA Length 2C 6.66 cm [...] Procedure Note Stalin Krishna MD - 05/31/2024 [facility] [place] [address] Transthoracic Echocardiographic Report Patient Name: MISHA BROWNE : 1980 (43y 7m) Gender: F Study Date: 05/31/2024 02:12:33 PM Ht(Inch): 63 Wt(Lb): 184.97 BSA: 1.93 Layup Worker: Elisabeth Em RDCS Location: [place] [address] Order Provider:PINEDA HINOJOSA Heart Rate: 61 BMI: [...] Normal trileaflet aortic valve. Mild aortic valve regurgitation(RJJ=324 ms). The mean transaortic gradient is 4 [...] [ -25.0 - -18.0 ] AI Decel [id number] sec LA Length 4C 6.78 cm AI Decel Slope2.15 m/s2 LA Length 2C 6.66 cm AI [id number] msec LA Volume BP 83.77 ml MV [...] [ 1.71 - 5.00 ] MV Decel [id number] msec [ 104.00 - 258.00 ] RA [...] MD PhD LAB BLOOD ORDERABLES Final Result [facility] [place] [address] * Differential, auto (05/31/2024 4:55 AM CDT) Neutrophil abs 4.9 1.5 - 6.5 K/cumm Imm gran abs 0.0 0.0 - 0.1 K/cumm [facility] Lymphocyte abs 1.4 0.8 - 3.3 K/cumm [facility] Monocyte abs 0.6 0.2 - 0.8 K/cumm [facility] Eosinophil abs 0.1 0.0 - 0.5 K/cumm [facility] Basophil abs 0.0 0.0 - 0.1 K/cumm [facility] Neutrophil pct 69.8 % [facility] Comment: Interpretive Data Percent cell count reference ranges are not reported, since discordance with absolute values may lead to misinterpretation of CBC data. Current Interpretive Data was last revised on 2017. Imm gran pct 0.6 % [facility] Comment: Interpretive Data Percent cell count reference ranges are not reported, since discordance with absolute values may lead to misinterpretation of CBC data. Current Interpretive Data was last revised on 2017. Lymphocyte pct 19.7 % [facility] Comment: Interpretive Data Percent cell count reference ranges are not reported, since discordance with absolute values may lead to misinterpretation of CBC data. Current Interpretive Data was last revised on 2017. Monocyte pct 8.0 % [facility] Comment: Interpretive Data Percent cell count reference ranges are not reported, since discordance with absolute values may lead to misinterpretation of CBC data. Current Interpretive Data was last revised on 2017. Eosinophil pct 1.9 % [facility] Comment: Interpretive Data Percent cell count reference ranges are not reported, since discordance with absolute values may lead to misinterpretation of CBC data. Current Interpretive Data was last revised on 2017. Basophil pct 0.0 % [facility] Comment: Interpretive Data Percent cell count reference ranges are not reported, since discordance with absolute values may lead to misinterpretation of CBC data. Current Interpretive Data was last revised on 2017. Blood 05/31/2024 4:55 AM CDT 05/31/2024 5:49 AM CDT Patricia Davidson MD PhD LAB BLOOD ORDERABLES Final Result Performing Organization Address [facility] de Phone Number [facility] [place] [address] * Tacrolimus level trough (05/31/2024 4:55 AM CDT) [facility] Tacrolimus trough 9.2 ng/mL Comment: Interpretive Data Testing performed by liquid chromatography-tandem mass spectrometry. Therapeutic concentrations vary depending on type of transplanted organ and time elapsed since transplant. Typical trough concentrations range from 5-15 ng/mL. This test was developed and its performance characteristics determined by the [facility] consistent with CLIA requirements. This test has not been cleared or approved by the US Food and Drug administration. Current interpretive data last reviewed 2019. Blood 05/31/2024 4:55 AM CDT 05/31/2024 5:49 AM CDT Patricia Davidson MD PhD LAB BLOOD ORDERABLES Final Result Performing Organization Address City/[facility] Co de Phone Number [facility] [place] [address] * (ABNORMAL) CBC with auto differential (05/31/2024 4:55 AM CDT) [facility] WBC 7.0 3.8 - 9.9 K/cumm Hgb 11.2(L) 11.9 - 15.5 g/dL [facility] Hct 31.4(L) 35.6 - 45.5 % [facility] Plt 102(L) 150 - 400 K/cumm [facility] MPV 10.9 9.1 - 12.3 fL [facility] RBC 3.15(L) 3.90 - 5.20 M/cumm [facility] MCV 99.7(H) 81.3 - 96.4 fL [facility] MCH 35.6(H) 27.1 - 33.3 pg [facility] MCHC 35.7 32.3 - 35.7 g/dL [facility] RDW CV 12.9 11.1 - 14.9 % [facility] RDW SD 46.0 35.7 - 48.1 fL [facility] NRBC abs 0.00 0.00 - 0.01 K/cumm [facility] Blood 05/31/2024 4:55 AM CDT 05/31/2024 5:49 AM CDT us Patricia Davidson MD PhD LAB BLOOD ORDERABLES Final Result [facility] [place] [address] * (ABNORMAL) Renal function panel (05/31/2024 4:55 AM CDT) [facility] Sodium 136 135 - 145 mmol/L Potassium, pl 4.6 3.3 - 4.9 mmol/L [facility] Chloride 105 97 - 110 mmol/L [facility] CO2 23 22 - 32 mmol/L [facility] Anion gap 8 2 - 15 mmol/L [facility] BUN 30(H) 6 - 25 mg/dL [facility] Creatinine 2.90(H) 0.60 - 1.10 mg/dL [facility] Glucose 119 70 - 199 mg/dL [facility] Comment: Interpretive Data Fasting glucose [...] 2022. Calcium 8.4(L) 8.5 - 10.3 mg/dL [facility] Phosphorus, pl 3.2 2.3 - 4.5 mg/dL [facility] Albumin 3.6 3.5 - 5.0 g/dL [facility] Blood 05/31/2024 4:55 AM CDT 05/31/2024 5:48 AM CDT us Patricia Davidson MD PhD LAB BLOOD ORDERABLES Final Result Performing Organization Address City/[facility]/ZIP Co de Phone Number [facility] [place] [address] * Sodium, urine, random (05/30/2024 5:23 PM CDT) Sodium, ur <20 mmol/L Comment: Interpretive Data No reference range established. Current interpretive data was last revised 2018. Urine 05/30/2024 5:23 PM CDT 05/30/2024 5:59 PM CDT Pineda Barrios MD LAB URINE ORDE RABLES Final Result Performing Organization Address City/[facility]/ZIP Co de Phone Number [facility] [place] [address] * Creatinine, urine, random (05/30/2024 5:23 PM CDT) Pathologist [facility] Creatinine Ur 121.1 mg/dL Comment: Interpretive Data No reference range established. Current interpretive data was last revised 2018. Urine 05/30/2024 5:23 PM CDT 05/30/2024 5:59 PM CDT Result [facility] Pineda Barrios MD LAB URINE ORDE RABLES Final Result Performing Organization Address [facility] de Phone Number [facility] [place] [address] * BK virus PCR quantitative Blood (05/30/2024 4:44 AM CDT) [facility] BKV DNA result, pl Not Detected [facility] Comment: The quantifiable range of this assay is 21.5 IU/mL to 100,000,000 IU/mL (1.33 log IU/mL to 8.00 log IU/mL). Testing was performed by the GAST[employer] 6800 BKV Quantatitive Test version 2.0 ([employer] Testing performed at [facility] Current Interpretive Data was last revised on 2021. Blood 05/30/2024 4:44 AM CDT 05/30/2024 5:55 AM CDT Result [facility] Patricia Davidson MD PhD LAB MICROBIOLOGY - GENERAL ORDERABLES Final Result Performing Organization Address [facility] Co de Phone Number [facility] [place] [address] [facility] * Collection Task for HLA Antibody Screen (05/30/2024 4:44 AM CDT) [facility] HLA Antibody Screen By Single Antigen Received Blood 05/30/2024 4:44 AM CDT 05/30/2024 9:01 AM CDT Result [facility] Patricia Davidson MD PhD LAB BLOOD ORDERABLES Final Result [facility] [place] [address] * Cytomegalovirus (CMV) DNA PCR, quantitative Blood (05/30/2024 4:44 AM CDT) CMV DNA Not Detected [facility] Comment: Interpretive Data: The quantifiable range of this assay is 34 IUnits/mL to 10,000,000 IUnits/mL (1.53 log IUnits/mL to 7.0 log IUnits/mL). Testing was performed by the GASTON 6800 CMV Test ([employer] Testing performed at [facility]. Current interpretive data was last revised on 2020. Blood 05/30/2024 4:44 AM CDT 05/30/2024 5:55 AM CDT Patricia Davidson MD PhD LAB MICROBIOLOGY - GENERAL ORDERABLES Final Result Performing Organization Address City/[facility]/ZIP Co de Phone Number [facility] [place] [address] [facility] * (ABNORMAL) eGFR (05/30/2024 4:44 AM CDT) [...] MD PhD LAB BLOOD ORDERABLES Final Result [facility] [place] [address] * Differential, auto (05/30/2024 4:44 AM CDT) Neutrophil abs 5.0 1.5 - 6.5 K/cumm Imm gran abs 0.0 0.0 - 0.1 K/cumm [facility] Lymphocyte abs 1.7 0.8 - 3.3 K/cumm [facility] Monocyte abs 0.5 0.2 - 0.8 K/cumm [facility] Eosinophil abs 0.1 0.0 - 0.5 K/cumm [facility] Basophil abs 0.0 0.0 - 0.1 K/cumm [facility] Neutrophil pct 68.2 % [facility] Comment: Interpretive Data Percent cell count reference ranges are not reported, since discordance with absolute values may lead to misinterpretation of CBC data. Current Interpretive Data was last revised on 2017. Imm gran pct 0.5 % [facility] Comment: Interpretive Data Percent cell count reference ranges are not reported, since discordance with absolute values may lead to misinterpretation of CBC data. Current Interpretive Data was last revised on 2017. Lymphocyte pct 22.6 % [facility] Comment: Interpretive Data Percent cell count reference ranges are not reported, since discordance with absolute values may lead to misinterpretation of CBC data. Current Interpretive Data was last revised on 2017. Monocyte pct 6.8 % [facility] Comment: Interpretive Data Percent cell count reference ranges are not reported, since discordance with absolute values may lead to misinterpretation of CBC data. Current Interpretive Data was last revised on 2017. Eosinophil pct 1.8 % [facility] Comment: Interpretive Data Percent cell count reference ranges are not reported, since discordance with absolute values may lead to misinterpretation of CBC data. Current Interpretive Data was last revised on 2017. Basophil pct 0.1 % [facility] Comment: Interpretive Data Percent cell count reference ranges are not reported, since discordance with absolute values may lead to misinterpretation of CBC data. Current Interpretive Data was last revised on 2017. Blood 05/30/2024 4:44 AM CDT 05/30/2024 5:30 AM CDT Result [facility] Patricia Davidson MD PhD LAB BLOOD ORDERABLES Final Result Performing Organization Address [facility] de Phone Number [facility] [place] [address] * Tacrolimus level trough (05/30/2024 4:44 AM CDT) [facility] Tacrolimus trough 16.5 ng/mL Comment: Interpretive Data Testing performed by liquid chromatography-tandem mass spectrometry. Therapeutic concentrations vary depending on type of transplanted organ and time elapsed since transplant. Typical trough concentrations range from 5-15 ng/mL. This test was developed and its performance characteristics determined by the [facility] consistent with CLIA requirements. This test has not been cleared or approved by the [place] Food and Drug administration. Current interpretive data last reviewed 2019. Blood 05/30/2024 4:44 AM CDT 05/30/2024 5:30 AM CDT Patricia Davidson MD PhD LAB BLOOD ORDERABLES Final Result Performing Organization Address [facility] Co de Phone Number [facility] [place] [address] * (ABNORMAL) CBC with auto differential (05/30/2024 4:44 AM CDT) [facility] WBC 7.4 3.8 - 9.9 K/cumm Hgb 12.0 11.9 - 15.5 g/dL [facility] Hct 33.9(L) 35.6 - 45.5 % [facility] Plt 130(L) 150 - 400 K/cumm [facility] MPV 10.8 9.1 - 12.3 fL [facility] RBC 3.40(L) 3.90 - 5.20 M/cumm [facility] MCV 99.7(H) 81.3 - 96.4 fL [facility] MCH 35.3(H) 27.1 - 33.3 pg [facility] MCHC 35.4 32.3 - 35.7 g/dL [facility] RDW CV 13.0 11.1 - 14.9 % [facility] RDW SD 47.4 35.7 - 48.1 fL [facility] NRBC abs 0.00 0.00 - 0.01 K/cumm [facility] Blood 05/30/2024 4:44 AM CDT 05/30/2024 5:30 AM CDT us Patricia Davidson MD PhD LAB BLOOD ORDERABLES Final Result [facility] [place] [address] * (ABNORMAL) Renal function panel (05/30/2024 4:44 AM CDT) Sodium 142 135 - 145 mmol/L Potassium, pl 4.2 3.3 - 4.9 mmol/L [facility] Chloride 108 97 - 110 mmol/L [facility] CO2 25 22 - 32 mmol/L [facility] Anion gap 9 2 - 15 mmol/L [facility] BUN 23 6 - 25 mg/dL [facility] Creatinine 2.76(H) 0.60 - 1.10 mg/dL [facility] Glucose 123 70 - 199 mg/dL [facility] Comment: Interpretive Data Fasting glucose [...] 2022. Calcium 9.1 8.5 - 10.3 mg/dL [facility] Phosphorus, pl 3.6 2.3 - 4.5 mg/dL [facility] Albumin 3.8 3.5 - 5.0 g/dL [facility] Blood 05/30/2024 4:44 AM CDT 05/30/2024 5:31 AM CDT Patricia Davidson MD PhD LAB BLOOD ORDERABLES Final Result Performing Organization Address [facility] de Phone Number [facility] [place] [address] * HLA Donor Specific Antibody Report (05/30/2024 [...] BLOOD ORDERABLES Final Result Performing Organization Address [facility] Co de Phone Number [facility] * ECG 12 lead (05/30/2024 1:10 AM CDT) [facility] Signature Ventricular Rate EKG/Min 75 BPM [facility] Atrial Rate 75 BPM [facility] AK-Interval (MSEC) 160 ms [facility] QRS-Interval (MSEC) 82 ms [facility] QT-Interval (MSEC) 456 ms [facility] QTc 509 ms [facility] P [place] 31 degrees [facility] R [place] -9 degrees [facility] T [place] 44 degrees [facility] Diagnosis Normal sinus rhythm Poor r wave progression associated with abnormal lead placement, obesity, pulmonary disease, anterior infarction. Prolonged QT Abnormal ECG When compared with ECG of 20-APR-2020 11:02, QRS voltage has increased Confirmed by BRODIE LEIGH M.D ([id number]) on 05/30/2024 12:29:55 PM [facility] 05/30/2024 1:10 AM CDT 05/30/2024 12:29 PM CDT us Patricia Davidson MD PhD ECG ORDERABLES Final Resul t [facility] * US Renal Transplant W Dopplers (05/29/2024 [...] COVID-19 PCR Nasopharyngeal (05/29/2024 4:10 PM CDT) [facility] COVID-19 RNA Negative Negative [facility] Influenza A RNA Negative Negative [facility] Influenza B RNA Negative Negative [facility] RSV RNA Negative Negative [facility] Comment: Interpretive data: Testing performed by [facility] ([phone]). This test is performed using the [employer] Xpert Xpress CoV-2/Flu/RSV plus assay. This is a multiplex, real-time reverse transcriptase PCR assay intended for the qualitative detection of nucleic acid from SARS-CoV-2, influenza A, influenza B, and respiratory syncytial virus. This assay has been cleared by the [place] Food and Drug administration. The performance characteristics have been verified by the [facility]. Results must be considered in the clinical context, and a negative result does not rule out infection. Interpretive Data last revised 2023 Nasopharyngeal 05/29/2024 4: 10 PM CDT 05/29/2024 5:03 PM CDT Narrative [facility] - 05/29/2024 5:51 PM CDT Is the Patient experiencing symptoms consistent with COVID?->Unknown Mona Barrios MD LAB MICROBIOLOGY - GEN ERAL ORDERABLES Final Result [facility] [place] [address] [facility] * Respiratory pathogen panel Nasopharyngeal (05/29/2024 4:10 PM CDT) [facility] Influenza A RNA Not Detected Not Detected Influenza B RNA Not Detected Not Detected [facility] RSV RNA Not Detected Not Detected [facility] COVID-19 RNA Not Detected Not Detected [facility] Coronavirus 229E RNA Not Detected Not Detected [facility] Coronavirus HKU1 RNA Not Detected Not Detected [facility] Coronavirus NL63 RNA Not Detected Not Detected [facility] Coronavirus OC43 RNA Not Detected Not Detected [facility] Adenovirus DNA Not Detected Not Detected [facility] Metapneumovirus RNA Not Detected Not Detected [facility] Rhinovirus/Enterov irus RNA Not Detected Not Detected [facility] Parainfluenza 1 RNA Not Detected Not Detected [facility] Parainfluenza 2 RNA Not Detected Not Detected [facility] Parainfluenza 3 RNA Not Detected Not Detected [facility] Parainfluenza 4 RNA Not Detected Not Detected [facility] B. pertussis DNA Not Detected Not Detected [facility] B. parapertussis DNA Not Detected Not Detected [facility] C. pneumoniae DNA Not Detected Not Detected [facility] M. pneumoniae DNA Not Detected Not Detected [facility] Nasopharyngeal 05/29/2024 4: 10 PM CDT 05/30/2024 6:07 AM CDT Narrative [facility] - 05/30/2024 7:05 AM CDT Interpretive Data The [employer] FilmArray Respiratory Panel (RP2.1) assay is a [...] assay has FDA clearance for testing of DIRECTOR OF EM[employer]OYEE DEVELOP[employer] swabs. The performance of additional specimen types has been assessed by the performing laboratory. The performance characteristics of this assay have been determined by [facility] Molecular Infectious Disease Laboratory. Current interpretive data was last revised on 21. Pineda Barrios MD LAB MICROBIOLO GY - GENERAL ORDERABLES Final Result [facility] Department [place] [address] * Urinalysis reflex to microscopic (05/29/2024 3:31 PM CDT) Color, ur Yellow Yellow Clarity, ur Clear Clear [facility] Specific gravity, ur 1.013 1.003 - 1.030 [facility] pH, urine 5.5 [facility] Comment: Interpretive Data U rine pH is affected by diet, medications, systemic acid-base disturbances, and renal tubular function. pH may affect urinary stone formation. For example, urine pH below 6.0 may help reduce the tendency for calcium phosphate stones and pH greater than 6.0 may reduce the tendency for uric acid stone formation. Source: [facility] [employer] Current Interpretive Data was last revised on 2017 Protein, ur ql Trace Negative [facility] Glucose, ur ql Negative Negative [facility] Ketones, ur Negative Negative [facility] Bilirubin, ur Negative Negative [facility] Blood, ur Negative Negative [facility] Urobilinogen, ur <2.0 <2.0 mg/dL [facility] Nitrite, ur Negative Negative [facility] Leukocyte esterase, ur Negative Negative [facility] UA reflex comment Reflex conditions for microscopic UA not met. [facility] Urine 05/29/2024 3:31 PM CDT 05/29/2024 3:38 PM CDT Shruti Damon MD LAB URINE ORDERABLES Aniya l Result Performing Organization Address City/[facility]/ZIP Co de Phone Number [facility] Department [place] [address] * POCT hCG, urine (05/29/2024 3:30 PM CDT) [facility] HCG, ur, POC Negative Negative Lot Number [id number] QC Backgroud Clear Acceptable QC Control Line Acceptable Urine 05/29/2024 3:30 PM CDT Shruti Damon MD POINT OF CARE TEST ORDERA BLES Final Result * POCT lactate (05/29/2024 3:02 PM CDT) [facility] Lactate POC i-STAT 1.9 0.7 - 2.0 mmol/L Blood 05/29/2024 3:02 PM CDT 05/29/2024 3:02 PM CDT Notinfile Unknown LAB POCT ORDERABLES - DEVICE F inal Result Performing Organization Address [facility] Co de Phone Number [facility] Department [place] [address] * (ABNORMAL) eGFR (05/29/2024 2:57 PM CDT) [facility] eGFR 30(L) >=60 mL/min/1. 73 m2 Comment: [...] MD LAB BLOOD ORDERABLES Aniya maguire Result [facility] [place] [address] * Differential, auto (05/29/2024 2:57 PM CDT) Neutrophil abs 5.5 1.5 - 6.5 K/cumm Imm gran abs 0.0 0.0 - 0.1 K/cumm [facility] Lymphocyte abs 0.9 0.8 - 3.3 K/cumm [facility] Monocyte abs 0.4 0.2 - 0.8 K/cumm [facility] Eosinophil abs 0.1 0.0 - 0.5 K/cumm [facility] Basophil abs 0.0 0.0 - 0.1 K/cumm [facility] Neutrophil pct 79.6 % [facility] Comment: Interpretive Data Percent cell count reference ranges are not reported, since discordance with absolute values may lead to misinterpretation of CBC data. Current Interpretive Data was last revised on 2017. Imm gran pct 0.4 % [facility] Comment: Interpretive Data Percent cell count reference ranges are not reported, since discordance with absolute values may lead to misinterpretation of CBC data. Current Interpretive Data was last revised on 2017. Lymphocyte pct 13.7 % [facility] Comment: Interpretive Data Percent cell count reference ranges are not reported, since discordance with absolute values may lead to misinterpretation of CBC data. Current Interpretive Data was last revised on 2017. Monocyte pct 5.5 % [facility] Comment: Interpretive Data Percent cell count reference ranges are not reported, since discordance with absolute values may lead to misinterpretation of CBC data. Current Interpretive Data was last revised on 2017. Eosinophil pct 0.7 % [facility] Comment: Interpretive Data Percent cell count reference ranges are not reported, since discordance with absolute values may lead to misinterpretation of CBC data. Current Interpretive Data was last revised on 2017. Basophil pct 0.1 % [facility] Comment: Interpretive Data Percent cell count reference ranges are not reported, since discordance with absolute values may lead to misinterpretation of CBC data. Current Interpretive Data was last revised on 2017. Blood 05/29/2024 2:57 PM CDT 05/29/2024 3:21 PM CDT us Shruti Damon MD LAB BLOOD ORDERABLES Aniya maguire Result [facility] Department [place] [address] * (ABNORMAL) CBC with auto differential (05/29/2024 2:57 PM CDT) Pathologist [facility] WBC 6.9 3.8 - 9.9 K/cumm Hgb 13.5 11.9 - 15.5 g/dL [facility] Hct 38.8 35.6 - 45.5 % [facility] Plt 129(L) 150 - 400 K/cumm [facility] MPV 10.7 9.1 - 12.3 fL [facility] RBC 3.88(L) 3.90 - 5.20 M/cumm [facility] MCV 100.0(H) 81.3 - 96.4 fL [facility] MCH 34.8(H) 27.1 - 33.3 pg [facility] MCHC 34.8 32.3 - 35.7 g/dL [facility] RDW CV 13.0 11.1 - 14.9 % [facility] RDW SD 47.6 35.7 - 48.1 fL [facility] NRBC abs 0.00 0.00 - 0.01 K/cumm [facility] Blood Venous blood specimen / Unknown 05/29/2024 2:57 PM CDT 05/29/2024 3:21 PM CDT Shruti Damon MD LAB BLOOD ORDERABLES Aniya l Result Performing Organization Address City/[facility]/ZIP Co de Phone Number [facility] [place] [address] * Tacrolimus level random (05/29/2024 2:57 PM CDT) Tacrolimus random 20.2 ng/mL Comment: Interpretive Data Testing performed by liquid chromatography-tandem mass spectrometry. Therapeutic concentrations vary depending on type of transplanted organ and time elapsed since transplant. Typical trough concentrations range from 5-15 ng/mL. This test was developed and its performance characteristics determined by the [facility] consistent with CLIA requirements. This test has not been cleared or approved by the [place] Food and Drug administration. Current interpretive data last reviewed 2019. Blood 05/29/2024 2:57 PM CDT 05/29/2024 3:28 PM CDT Pineda Barrios MD LAB BLOOD ORDE RABLES Final Result Performing Organization Address [facility] Co de Phone Number [facility] [place] [address] * Lipase (05/29/2024 2:57 PM CDT) Lipase 12 10 - 99 Units/L Blood Venous blood specimen / Unknown 05/29/2024 2:57 PM CDT 05/29/2024 3:20 PM CDT Shruti Damon MD LAB BLOOD ORDERABLES Aniya l Result Performing Organization Address [facility] Co de Phone Number [facility] [place] [address] * (ABNORMAL) Comprehensive metabolic panel (05/29/2024 2:57 PM CDT) Sodium 137 135 - 145 mmol/L Potassium, pl 4.6 3.3 - 4.9 mmol/L [facility] Chloride 107 97 - 110 mmol/L [facility] CO2 18(L) 22 - 32 mmol/L [facility] Anion gap 12 2 - 15 mmol/L [facility] BUN 22 6 - 25 mg/dL [facility] Creatinine 2.10(H) 0.60 - 1.10 mg/dL [facility] Glucose 185 70 - 199 mg/dL [facility] Comment: Interpretive Data Fasting glucose [...] 2022. Calcium 9.9 8.5 - 10.3 mg/dL [facility] Bilirubin, total 0.8 0.1 - 1.2 mg/dL [facility] Protein, pl 7.6 6.5 - 8.5 g/dL [facility] Albumin 4.0 3.5 - 5.0 g/dL [facility] Alk phos 372(H) 40 - 130 Units/L [facility] ALT 22 7 - 45 Units/L [facility] AST 28 10 - 45 Units/L [facility] Blood 05/29/2024 2:57 PM CDT 05/29/2024 3:20 PM CDT Shruti Damon MD LAB BLOOD ORDERABLES Aniya l Result [facility] [place] [address] * Hepatitis panel, acute (04/16/2020 6:35 AM POWER LINEMAN TECHNICIAN) Hep A IgM Nonreactive Nonreactive [facility] Comment: Interpretive Data: If Hep A IgM Ab is reported as Equivocal, a new sample should be drawn in two weeks for testing. Current interpretive data was last revised on 19. Hep B core IgM Nonreactive Nonreactive [facility] Comment: Interpretive Data If HepB Core IgM Ab is reported as Equivocal, a new sample should be drawn in two weeks for testing. Current interpretive data was last revised on 19. Hep C Ab Nonreactive Nonreactive [facility] Comment:Antibodies to HCV no t detected. Does NOT exclude the possibility of recent exposure to HCV. HepBsAg Nonreactive Nonreactive [facility] Blood specimen (specimen) 04/16/2020 6:35 AM POWER LINEMAN TECHNICIAN 04/16/2020 7:34 AM POWER LINEMAN TECHNICIAN Jacob Gates MD LAB MICROBIOLOGY - GENER AL ORDERABLES Final Result [facility] [place] [address] from Last 3 Months or Most Recently Relevant to Health Maintenance Insurance [employer] OPEN ACCESS [employer] [place] [facility] PLAN [employer]IG[employer] [facility] [place] [facility] Advance Directives For more information, please contact: [phone] * Full Code (Latest Code Status on File) Date Activated Date Inactivated Comments 05/29/2024 10:30 PM 06/13/2024 7:10 PM * Full Code Date Activated Date Inactivated Comments 04/16/2020 1:16 AM 04/23/2020 6:51 PM * Full Code Date Activated Date Inactivated Comments 08/14/2019 3:14 PM 08/14/2019 9:26 PM * Full Code Date Activated Date Inactivated Comments 07/25/2019 6:15 AM 07/25/2019 11:51 PM Care Teams Public Policy Mediator Relationship Specialty Start Date End Date Lyly Fiore NP [address] [place] [address] PCP - General Nurse Practitioner 05/29/24 Beatriz Lee MD [address] [place] [address] Referring Physician Gastroenterology 07/25/19 Taylor Kitchen, java portal developerSalon Coordinator 05/29/24
--- OUTSIDE RECORDS SUMMARY | 2024-06-26 17:05 | XMS_ITS | Encounter Summary ---
Author Organization [facility] Address [address] [place] [address] Care Team Providers Care Locker Room Clerk Name Role Phone Ashley ZUNIGA MD, Hermes Perez Primary Care Provid er Lyly Fiore NP Primary Care Provider [phone] Encounter Details Date Type Department Care Team ([facility] st Contact Info) Description 06/03/2017 Abstract [facility] CONVERSION [address] [place] [address] , Generic ConversionMD Social History Tobacco Use Types Packs/Day Years Used Date Smoking Tobacco: Never Assessed Comments Unknown Sex and Gender Information Value Date Recorded Sex Assigned at Female 04/05/2024 4:26 PM CRAFT COORDINATOR Legal Sex Female 9:15 PM CRAFT COORDINATOR Gender Identity Not on file Sexual Orientation Not on file documented as of this encounter Plan of Treatment Not on file documented as of this encounter Visit Diagnoses Not on filedocumented in this encounter Additional Health Concerns Infection Onset Date Last Indicated Resolved Time COVID-19 Rule Out 03/30/2020 03/30/2020 03/30/2020 9:29 PM CRAFT COORDINATOR COVID-19 Rule Out 03/30/2020 03/30/2020 03/31/2020 12:28 PM CRAFT COORDINATOR COVID-19 Rule Out 02/16/2024 02/16/2024 02/16/2024 9:16 PM CRAFT COORDINATOR Rhinovirus 02/16/2024 02/16/2024 02/26/2024 12:3 2 AM CRAFT COORDINATOR documented as of this encounter Care Teams Locker Room Clerk Relationship Specialty Start Date End Date Hermes Ramirez III, MD [address] [address] PCP - General FAMILY PRACTICE 06/20/17 04/13/24 Lyly Fiore NP [address] [place] [address] PCP - General NURSE PRACTITIONER 04/14/24 documented as of this encounter
--- OUTSIDE RECORDS SUMMARY | 2024-06-26 17:05 | XMS_ITS | Encounter Summary ---
Author Organization [facility] Healthcare Address [address] [place] [address] Care Team Providers Care Lumber Bearer Name Role Phone Beatriz Lee MD Unavailable [phone] Lyly Fiore HUNTING SALES ASSOCIATE Primary Care Provider Taylor Kitchen RN Unavailable Unav ailable Reason for Referral * Consultation (Routine) - Pending Review Specialty Diagnoses / Procedures Referred By Esvin t Referred To Contact Pain Management Diagnoses Other chronic pain Beatriz Lee MD [address] [place] [address] Phone: tel: fax: [address] [phone] Referral ID Status Reason Start Date Expiration Date Visits Requested Visits Authorized [id number] Pending Review Specialty Services Required 06/26/2024 07/26/2025 1 1 Question Answer Please select the performing region: [facility] [[id number]] # of visits: 1 Comments Any provider. S/p liver/kidney txp with hx of chronic pain due to spinal stenosis. She saw pain management recently while inpt here at [facility]. Was going to follow up with pain management locally but would prefer to be seen at [facility] Encounter Details Date Type Department Care Team (Late st Contact Info) Description 06/26/2024 Telephone [facility] Transplant Liver [address] [facility] [phone] [place] [address] Dafne Dukes, RN Social History Tobacco Use [...] on file Legal Sex Female 10:10 PM CONCRETE ENGINEER Gender Identity Not on file Sexual [...] her updated lab orders to go to [facility]. She plans on getting labs done this week/next week. She willcall our office if any issues at the lab. She is aware orders will be under Dr. eLe. We discussed sending her scripts for azathioprine and prednisone to her local [facility]. She was unaware that she was enrolled in the PAP for Envarsus. Called [facility]. They need updated script sent for [...] GGT, and Tacrolimus Lab patient will use [facility] Ordering provider Dr. Lee Diagnosis [...] documented as of this encounter Care Teams Lumber Bearer Relationship Specialty Start Date End Date Lyly Fiore NP [address] [place] [address] PCP - General Nurse Practitioner 05/29/24 Beatriz Lee MD [address] [place] [address] Referring Physician Gastroenterology 07/25/19 Taylor Kitchen, abrasive grinderNanotechnologist 05/29/24 documented as of this encounter
== END 2024-06-26 16:55 | disposition home or self-care (01) ==
PROVIDERS: Emergency Provider Internal Medicine Critical Care Medicine
DX: G43.909 Migraine, unspecified, not intractable, without status migrainosus (principal); M54.50 Low back pain, unspecified
CPT/HCPCS: 96361; 96374; 96375; 96376; 99284; J1171; J2405; J7120

== ENCOUNTER 2024-07-19 20:10 | Emergency (ER) | payer OTHER, SELFPAY ==
[2024-07-19 20:10] VITALS: BP 158/96; PULSE 86; RESP 18; TEMP 36.4; O2SAT 100
--- NOTE | 2024-07-19 20:23 | ED.HA ---
HPI - Headache General Chief Complaint: Headache Stated Complaint: Migraine Time Seen by Provider: 07/19/24 20:13 Source: patient Mode of arrival: ambulatory Limitations: no limitations History of Present Illness HPI Narrative: Patient is a 43-year-old female with recurrent migraine headaches here with similar symptoms. This is a normal migraine headache for the patient and it is not worse than normal. MD elicited complaint: headache and migraine Pertinent past history: migraines and other ( Liver and kidney transplants (patient cannot use Tylenol or NSAIDs)) Onset (ago): day(s) ( 1) Onset description: gradually Location: diffuse Severity: severe Pain scale (0-10): 8 Quality & Timing: throbbing and sharp Exacerbating factors: light and noise Relieving factors: dark room Context: occurred at rest Associated symptoms: nausea Treatments prior to arrival: acetaminophen ( she is able to take up to 1000 mg of Tylenol a day) Related Data Allergies Allergy/AdvReac Type Severity Reaction Status Date / Time erythromycin base Allergy Intermediate Rash Verified 06/26/24 15:11 gentamicin Allergy Intermediate Rash Verified 06/26/24 15:11 ketorolac (From Toradol) AdvReac Severe Abdominal Verified 06/26/24 15:11 Pain NSAIDS (Non-Steroidal AdvReac Severe Abdominal Verified 06/26/24 15:11 Anti-Inflamma Pain Review of Systems Review of Systems: All systems reviewed & are unremarkable except as noted in HPI and below Constitutional: Constitutional: Reports no additional constitutional complaints Eyes: Eyes: Reports no additional eye complaints ENT: Reports system reviewed and no additional complaints, except as documented Cardiovascular: Cardiovascular: Reports no additional cardiovascular complaints Respiratory: Respiratory: Reports no additional respiratory complaints Gastrointestinal: Gastrointestinal: Reports no additional gastrointestinal complaints Genitourinary: Genitourinary: Reports no additional female genitourinary complaints Musculoskeletal: Musculoskeletal: Reports no additional musculoskeletal complaints Integumentary/Breasts: Skin/Breast: Reports system reviewed and no additional complaints, except as docu Neurologic: Reports system reviewed and no additional complaints, except as documented Psychiatric: Psychiatric: Reports no additional psychiatric complaints Endocrine: Endocrine: Reports no additional endocrine complaints Hematologic/Lymphatic: Hematologic/Lymphatic: Reports no additional hematologic/lymphatic complaints Allergic/Immunologic: Allergic/Immunologic: Reports no additional allergic/immunologic complaints PMFSH Past Medical History Medical History Anxiety and depression Spinal stenosis DJD (degenerative joint disease) Migraine Biliary atresia Surgical History Surgical History Liver transplant recipient Exam Const: General: ill appearing Nutritional Appearance: well nourished Orientation/consciousness: patient oriented x3 Limitations: no limitations HENMT: Head: normal to inspection Ears: external ears normal Face/Nose/Sinus: Normal external nose present Eyes: Conjunctivae: conjunctivae normal Pupils: Equal, round and reactive pupils present EOM: EOMs intact bilaterally Neck: Neck: normal visual inspection Chest: Chest palpation & inspection: normal inspection of the chest Resp: Effort & Inspection: normal respiratory effort and not labored Auscultation: clear to auscultation bilaterally and no crackles Cardio: Rate: regular rate Rhythm: regular rhythm Heart sounds: no murmurs GI: Inspection: non-distended GI Palp: Yes Soft to palpation and No Tenderness to palpation present (GI) Auscultation: normal bowel sounds : General: Yes bladder normal to palpation Back/Spine/Pelvis: Back: no CVA tenderness Skin: General skin exam: normal color Rashes: no rashes Wounds: no wounds Neuro: General: patient oriented x3 Cranial nerves: Yes Nystagmus not present Speech: normal speech Gait exam (Neuro): Normal gait present Extrem: General: normal to inspection Psych: Mental Status: mental status grossly normal Affect: normal affect Attitude: cooperative Course Vital Signs Vital signs: Vital Signs Temperature 36.4 C 07/19/24 20:10 Pulse Rate 86 07/19/24 20:10 Respiratory Rate 18 07/19/24 20:10 Blood Pressure 158/96 H 07/19/24 20:10 Pulse Oximetry 100 07/19/24 20:10 Oxygen Delivery Room Air 07/19/24 20:10 Temperature 36.4 C 07/19/24 20:10 Pulse Rate 81 07/19/24 21:40 Respiratory Rate 16 07/19/24 21:40 Blood Pressure 164/98 H 07/19/24 21:40 Pulse Oximetry 97 07/19/24 21:40 Oxygen Delivery Room Air 07/19/24 21:40 MDM - Headache MDM Narrative Medical decision making narrative: patient is a 43-year-old female with her typical migraine headache. She cannot use NSAIDs or Tylenol. She said typically Phenergan with the narcotic is what helps. We will go ahead and follow that agenda because she cannot take the other types of medications in this particular case. She recently had a CT scan of the head that was negative. No need for current CT scan of the head. At the end of the encounter, patient proceeded to add more painful areas and was hoping for more Dilaudid. There was drug seeking behaviors noted. Lab Data Attestation: I reviewed the patient's lab results. Labs: Lab Results 07/19/24 Range/Units 20:21 Urine Color Yellow (Yellow) Urine Appearance Clear (Clear) Urine pH 6.0 (5.0-8.0) Ur Specific [place] 1.015 (1.010-1.020) Urine Protein Negative (Negative) Urine Glucose (UA) Negative (Negative) Urine Ketones Negative (Negative) Ur Blood (Man) Negative (Negative) Urine Nitrate Negative (Negative) Urine Bilirubin Negative (Negative) Urine Urobilinogen 0.2 (0.2-1.0) mg/dL Leukocyte Esterase Rfl Negative (Negative) DIANA/UL Urine Test Negative Discharge Plan Discharge Clinical Impression: Cephalgia Qualifiers: Headache type: unspecified Headache chronicity pattern: unspecified pattern Intractability: not intractable Qualified Code(s): R51.9 - Headache, unspecified Patient Disposition: Home Condition: Stable Instructions: Migraine Headache (ED) Patient Language: Kiswahili Follow-up/Referrals: UNKNOWN,DOCTOR [Non-Staff] - Time of Disposition: 22:02
--- NOTE | 2024-07-19 20:30 | PC.NURSE ---
DR TOMPKINS AT THE BEDSIDE. URINE TAKEN DOWN TO LAB
[2024-07-19 20:39] LABS: Add Urine Microscopic? NO; Appearance Urine Clear (Clear); Bilirubin Urine Negative (Negative); Blood Urine Negative (Negative); Color Urine Yellow (Yellow); Glucose Urine UA Negative (Negative); Ketones Urine Negative (Negative); Leukocyte Esterase Ur Negative LEU/UL (Negative); Nitrate Urine Negative (Negative); Protein Urine Negative (Negative); Specific Grav Ur 1.015 (1.010-1.020); Urobilinogen Urine 0.2 mg/dL (0.2-1.0)
[2024-07-19 20:40] LABS: Pregnancy On Board Control Positive; Urine Pregnancy Test Negative
[2024-07-19] MEDS: SODIUM CHLORIDE 0.9% IV 1,000 ML 999 ML IV CONT (20:45)
[2024-07-19] MEDS: MORPHINE SULFATE (*CRX) 2 MG/ML INJ 4 MG IV PUSH (20:56)
[2024-07-19] MEDS: PROMETHAZINE HCL 25 MG/ML AMPUL 12.5 MG IV PUSH (20:57)
--- NOTE | 2024-07-19 21:05 | PC.NURSE ---
RESTING QUIETLY ON STRETCHER. REQUESTED BENADRYL FOR ITCHING TO HER FACE. REPORTS THAT IS NORMAL FOR HER WITH NARCOTICS.
--- NOTE | 2024-07-19 21:18 | PC.NURSE ---
PATIENT IS REQUESTING BENADRYL. STATES SHE IS HAVING ITCHING TO HER FACE AND REPORTS THAT THE MORPHINE HAS NOT TOUCHED HER PAIN. WILL UPDATE DR TOMPKINS
[2024-07-19] MEDS: diphenhydrAMINE HCl INJ 50 MG/ML VIAL 25 MG IV PUSH (21:21)
--- NOTE | 2024-07-19 21:26 | PC.NURSE ---
DR TOMPKINS WAS NOTIFIED THAT PATIENT REQUESTING MORE PAIN MEDICATION.
[2024-07-19] MEDS: HYDROmorphone HCL INJ (*CRX) 2 MG/ML VIAL 0.5 MG IV PUSH (21:32)
--- NOTE | 2024-07-19 21:39 | PC.NURSE ---
ADDITIONAL BLANKET WAS GIVEN. BOYFRIEND AT THE BEDSIDE. MEDICATED PER MAY. PLACED ON RECTIFYING OPERATOR
[2024-07-19 21:40] VITALS: BP 164/98; PULSE 81; RESP 16; O2SAT 97
--- NOTE | 2024-07-19 21:56 | PC.NURSE ---
PATIENT REPORTS THAT SHE IS FEELING BETTER AFTER RECEIVING DILAUDID AND BENADRYL. DR TOMPKINS HAS BEEN NOTIFIED
[2024-07-19 22:14] VITALS: BP 154/82; PULSE 78; RESP 18; O2SAT 100
--- OUTSIDE RECORDS SUMMARY | 2024-07-20 15:18 | XMS_ITS | Clinical Summary ---
Author Organization [facility] Address [address] [place] [address] Phone Care Team Providers Care Rivet Driver Name Role Phone Hermes Ramirez MD Primary Care Provider [phone] Allergies Active Allergy Reactions Criticality Noted Date [...] BEDTIME 2 Active Butalbital-APAP -Caff-Cod (Fioricet/Codei ne) [id number] MG Capsule Take by mouth. 2 Active [...] this topic Insurance MEDICA[place] [facility] Care Teams Rivet Driver Relationship Specialty Start Date End Date Hermes Ramirez MD [address] [facility] [address] [place] [address] PCP - General Family Medicine 05/09/18
--- OUTSIDE RECORDS SUMMARY | 2024-07-20 15:18 | XMS_ITS | Encounter Summary ---
Author Organization [facility] Address [facility] [place] [address] Care Team Providers Care Division Manager Name Role Phone Ashley ZUNIGA MD, Hermes Perez Primary Care Provid er Lyly Fiore NP Primary Care Provider [phone] Encounter Details Date Type Department Care Team (Late st Contact Info) Description 02/22/2024 Hospital Follow-up Call [facility] Cardiovascular Care Unit [address] [place] [address] Zulma Ardon, RN Social History Tobacco Use [...] any time in the past 12 m [facility], were you homeless or living in a chcf (including now)? No 02/20/2024 Comments No Sex and Gender Information Value Date Recorded Sex Assigned at Female 04/05/2024 4:26 PM GLUING CREW LEADER Legal Sex Female 9:15 PM GLUING CREW LEADER Gender Identity Not on file Sexual [...] Assessment Author Status No 02/20/2024 4:08 AM GLUING CREW LEADER Kimmy Hayes RN Active documented as of this encounter Mental Status * Because of a physical, mental, or emotional condition, do you have serious difficulty concentrating, remembering, or making decisions? Answer Entry Date Author Status No 02/20/2024 4:08 AM GLUING CREW LEADER Kimmy Hayes RN Active documented in this encounter Plan of Treatment Not on file documented as of this encounter Visit Diagnoses Not on filedocumented in this encounter Additional Health Concerns Infection Onset Date Last Indicated Resolved Time Rhinovirus 02/16/2024 02/16/2024 02/26/2024 12:3 2 AM GLUING CREW LEADER documented as of this encounter Care Teams Division Manager Relationship Specialty Start Date End Date Hermes Ramirez III, MD [address] [address] PCP - General FAMILY PRACTICE 06/20/17 04/13/24 Lyly Fiore NP [address] [place] [address] PCP - General NURSE PRACTITIONER 04/14/24 documented as of this encounter
--- OUTSIDE RECORDS SUMMARY | 2024-07-20 15:18 | XMS_ITS | Clinical Summary ---
Author Organization [facility] Address [facility] [place] [address] Care Team Providers Care Junior Qa Analyst Name Role Phone ChelsyLyly schaefer ELISA Primary Care Provider [phone] Allergies Active Allergy Reactions Criticality Noted Date [...] Problem Noted Date Diagnosed Date Acute CHF ([facility]) 02/20/2024 Viral infection 02/20/2024 Rectus sheath hematoma, initial encounter 2017 Cervical dysplasia 10/26/2016 History of vulvar dysplasia 10/26/2016 Gastric ulcer 10/24/2016 Pancreatitis ([facility]) 10/24/2016 Chronic kidney disease 10/24/2016 Anemia, unspecified 05/04/2012 Benign gestational thrombocytopenia ([facility]) History of cone biopsy of cervix 01/04/2012 History of liver transplant ([facility]) Acute pharyngitis 11/19/2010 Abdominal pain 11/13/2010 Aphthous ulcer 11/01/2010 Anxiety 07/21/2010 Encounters Date Type Department Care Team Description 07/02/2024 1:12 PM CDT - 07/02/2024 2:05 PM CDT Emergency [facility] Emergency [address] [place] [address] Nichelle Ray NP Headache; Back Pain Discharge Disposition: Left Against Medical Advice 07/02/2024 Travel 05/13/2024 9:37 PM PENAL OFFICER - 05/13/2024 11:39 PM PENAL OFFICER Emergency [facility] Emergency [address] [place] [address] Beronica Lopez MD Headache Recurrent Or Know Dx Migraine Discharge Disposition: Home or Self Care (Routine Discharge) 05/13/2024 Travel from Last 3 Months Family History [...] any time in the past 12 m [facility], were you homeless or living in a longterm (including now)? No 02/20/2024 Comments No Sex and Gender Information Value Date Recorded Sex Assigned at Female 04/05/2024 4:26 PM PENAL OFFICER Legal Sex Female 9:15 PM PENAL OFFICER Gender Identity Not on file Sexual Orientation Not on file Last Filed Vital Signs Vital Sign Reading Time Taken Comments Blood Pressure 146/82 07/02/2024 1:09 PM CDT Pulse 67 07/02/2024 1:09 PM CDT Temperature 37.2 C (98.9 F) 07/02/2024 1:09 PM CDT Respiratory Rate 18 07/02/2024 1:09 PM CDT Oxygen Saturation 99% 07/02/2024 1:09 PM CDT Inhaled Oxygen Concentration - - Weight 87.5 kg (192 lb 14.4 oz) 07/02/2024 1:09 PM CDT Height 157.5 cm (5' 2 ) 07/02/2024 1:09 PM CDT Body Mass Index 35.28 07/02/2024 1:09 PM CDT Plan of Treatment Health Maintenance Due Date Last Done Comments Annual Physical 1985 COVID-19 Vaccine (#1) 10/04/1987 Pneumococcal Vaccine: Pediatrics (0 to 5 Years) and At-Risk Patients (6 to 49 Years) (1 of 2 - PCV) 2001 Hepatitis B Vaccines (3 of 3 - [...] HEAD WO CON STAT 05/13/2024 11:06 PM PENAL OFFICER HUMAN PAPILLOMAVIRUS, HIGH-RISK TYPES Routine 06/20/2022 12:00 PM CDT CYTOPATH CERV/VAG THIN LAYER Routine 06/20/2022 7:46 AM CDT from Last 3 Months or Most Recently Relevant to Health Maintenance Results * CT HEAD WO CON (05/13/2024 11:06 PM PENAL OFFICER) Anatomical Region Laterality Modality Head Computed Tomogra phy 05/13/2024 11:0 8 PM PENAL OFFICER Impressions 05/13/2024 11:09 PM PENAL OFFICER IMPRESSION: 1. No definite CT evidence of acute intracranial abnormality, as above. Referred By: Interpreted By: Isaiah Becerra MD, 05/13/2024 11:08 PM Narrative 05/13/2024 11:09 PM PENAL OFFICER [facility] [address] [place], [place] [address] EXAMINATION: CT of the head CLINICAL HISTORY: [...] Procedure Note Isaiah Becerra MD - 05/13/2024 [place] [address] EXAMINATION: CT of the head CLINICAL HISTORY: [...] By: Isaiah Becerra MD, 05/13/2024 11:08 PM Beronica Lopez MD CT Fin al Result * HUMAN PAPILLOMAVIRUS, HIGH-RISK TYPES (06/20/2022 12:00 PM CDT) SPECIMEN CERVICAL/END OCERVICAL 06/22/2022 8:18 AM CDT [facility] HPV DNA HIGH RISK NEGATIVE NEGATIVE 06/22/2022 7:35 PM CDT [facility] Comment:SEE CYTOLOGY REPORT 06/20/2022 12:0 0 PM CDT us Sekou Scherer MD PATHOLOGY/CYTOLOGY ORDER KAREN Final Result [facility] [address] [place] [address], * Cytopath Cerv/Vag Thin Layer (06/20/2022 7:46 AM CDT) THIN PREP PAP [facility] [address] [place] [address] Department of Pathology Pathology Report CERVICAL/VAGINAL PAP SMEAR REPORT Name: MISHA JACKSON Age: 7 1980 (Age: 41) Location: [facility] Sex: F Collected Date: 06/20/2022 [facility] #: [id number] Date Received: 06/22/2022 Date Reported: 06/24/2022 Provider: [...] Cohen (ASCP) CLINICAL HISTORY Z12.4 PAP HISTORY-NILM LEAD RECOVERER SURGICAL HISTORY-HPV+ 05/17/16 LASER/CRYOTHERAPY ThinPrep Pap Test [...] is not effective in detecting cervical adenocarcinoma. [facility] 06/20/2022 7:46 AM CDT 06/22/2022 7:46 AM CDT Comment:CERVICAL/ENDOCERVICA L us Sekou Scherer MD PATHOLOGY/CYTOLOGY ORDER KAREN Final Result [facility] [address] [address], from Last 3 Months or Most Recently Relevant to Health Maintenance Insurance [employer] Advance Directives * Full Code (Latest Code Status on File) Date Activated Date Inactivated Comments 02/20/2024 1:27 AM 02/20/2024 11:44 AM * Full Code Date Activated Date Inactivated Comments 06/21/2017 12:22 AM 06/21/2017 8:16 PM Care Teams Junior Qa Analyst Relationship Specialty Start Date End Date Lyly Fiore NP [address] [place] [address] PCP - General NURSE PRACTITIONER 04/14/24
--- OUTSIDE RECORDS SUMMARY | 2024-07-20 15:18 | XMS_ITS | Continuity of Care Document ---
[facility] Address [address] [place] [address]- Care Team Providers Care Prorate Clerk Name Role Phone Lyly Fiore Primary Care Physician [phone] Encounter [facility] [id number] Date(s): 07/17/24 - 07/17/24 [facility] [address] [address]- Encounter Diagnosis Left foot pain(Discharge Diagnosis) - 07/17/24 Pain of left heel(Discharge Diagnosis) - 07/17/24 Difficulty walking(Discharge Diagnosis) - 07/17/24 Plantar fasciitis of left foot(Discharge Diagnosis) - 07/17/24 Bone spur of left foot(Discharge Diagnosis) - 07/17/24 Bursitis of left foot(Discharge Diagnosis) - 07/17/24 Discharge Disposition: Home or Self Care Attending Physician: Samm Barros DPM Referring Physician: Lyly Fiore ANALOG IC DESIGN ARCHITECT Encounter Type: Clinic Allergies, Adverse Reactions, Alerts Substance Criticality Severity Reaction Reaction Severity Status codeine High criticality Severe Unknown Itching Active gentamicin High criticality Moderate Ac tive NSAIDs High criticality Severe Act luis miguel erythromycin Medication interaction Active azithromycin High criticality Severe Unknown Active aspirin High criticality Severe Medication interaction Active morphine 1 Low criticality Mild redness Itching Active Toradol High criticality Severe Kidney fail ure as a complication of care Active 1localized reaction at iv site Assessment and Plan Extracted from: Title:Office Visit Note Author:Samm Barros DPM Date:07/17/24 1. Pain of left heel M79.672, Left foot pain M79.672 I educated the patient on all problems. Discussed different treatment options. I discussed different shoes, insoles, padding and range of motion. I discussed surgical nonsurgical treatment options, the risk, benefits and alternatives I discussed prescription medications. She has a history of a liver and kidney transplant. She is not a candidate for NSAIDs I discussed steroid injections, she consented. Postprocedure education given, I discussed surgical correction of the problem, the operative and postoperative course, the risks involved I discussed and offered therapy I recommended icing and stretching and splinting Call with any worsening. Follow-up 3 weeks 2. Difficulty walking R26.2 3. Plantar fasciitis of left foot M72.2 4. Bursitis of left foot M77.52, Bone spur of left foot M77.52 Given dexamethasone, 2 mg, Intra-articular. For: Bone spur of left foot, Left foot pain Future Appointments Future Scheduled Tests Radiology* MRI Shoulder w/o Contrast Right 05/01/24 * MRI Spine Lumbar w/o Contrast 05/01/24 * MRI Spine Thoracic w/o Contrast 05/01/24 * MG Mammo Diagnostic Bilateral w/ Chad 02/25/25 [...] hepatitis A adult vaccine 10/09/17 Recorded Medications Abilify 2 mg oral tablet 2 mg = 1 tab, Oral, Daily, # 30 tab, 2 Refill(s), Pharmacy: [facility]/pharmacy #[id number], 157.48, cm, 06/20/24 10:53:00 CDT, Height, 86.64, kg, 06/20/24 11:01:00 CDT, Weight Dosing Start Date: 06/20/24 Status: Ordered Quantity: 30.0 Unit: tab Repeat number: 3 amLODIPine 5 mg oral tablet 5 mg = 1 tab, Oral, Daily, # 30 tab, 11 Refill(s), Pharmacy: [place], [place], 157.48, cm, 01/04/23 15:03:00 CDT, Height/Length Dosing, 81.65, kg, 01/04/23 15:03:00 CDT, Weight Dosing Start Date: 01/11/23 Status: Ordered Quantity: 30.0 Unit: tab Repeat number: 12 azaTHIOprine 50 mg oral tablet 50 mg = 1 tab, Oral, Daily, # 30 tab, 0 Refill(s), [id number] 157.48, cm, 05/01/24 10:09:00 SALES PROGRAM MANAGER, Height, 86.18, kg, 05/01/24 10:13:00 SALES PROGRAM MANAGER, Weight Dosing Start Date: 05/02/24 Stop Date: 06/01/24 Status: Ordered Quantity: 30.0 Unit: tab Repeat number: 1 butalbital/acetaminophen/caffeine 50 mg-325 mg-40 mg oral tablet 1 tab, Oral, Daily, # 30 tab, 0 Refill(s), Pharmacy: [id number], 158.75, cm, 04/22/24 16:06:00 SALES PROGRAM MANAGER, Height, 89.36, kg, 04/22/24 16:15:00 SALES PROGRAM MANAGER, Weight Dosing Start Date: 04/24/24 Stop Date: 05/24/24 Status: Ordered Quantity: 30.0 Unit: tab Repeat number: 1 Envarsus XR 1 mg oral tablet, extended release 0 Refill(s) Start Date: 01/30/24 Status: Ordered Repeat number: 1 Envarsus XR 4 mg oral tablet, extended release 0 Refill(s) Start Date: 01/30/24 Status: Ordered Repeat number: 1 LORazepam 0.5 mg oral tablet TAKE ONE TABLET BY MOUTH DAILY NEEDED FOR ANXIETY Start Date: 12/18/20 Status: Ordered Repeat number: 1 Macrobid 100 mg oral capsule 100 mg = 1 cap, Oral, BID, # 20 cap, 0 Refill(s), Pharmacy: [facility]/pharmacy #[id number], 157.48, cm, 05/27/24 11:35:00 CDT, Height, 86.18, kg, 05/27/24 11:45:00 CDT, Weight Dosing Start Date: 05/27/24 Stop Date: 06/06/24 Status: Ordered Quantity: 20.0 Unit: cap Repeat number: 1 metoprolol succinate 100 mg oral capsule, extended release 100 mg = 1 cap, Oral, BID, # 60 cap, 11 Refill(s), Pharmacy: [place], [place], 157.48, cm, 01/04/23 15:03:00 CDT, Height/Length Dosing, 81.65, kg, 01/04/23 15:03:00 CDT, Weight Dosing Start Date: 01/11/23 Status: Ordered Quantity: 60.0 Unit: cap Repeat number: 12 predniSONE 5 mg oral tablet 5 mg = 1 tab, Oral, Daily, with food or milk, # 30 tab, 0 Refill(s), Pharmacy: [facility] #[id number], 157.48, cm, 05/01/24 10:09:00 SALES PROGRAM MANAGER, Height, 86.18, kg, 05/01/24 10:13:00 SALES PROGRAM MANAGER, Weight Dosing Start Date: 05/02/24 Status: Ordered Quantity: 30.0 Unit: tab Repeat number: 1 Topamax 50 mg oral tablet 50 mg = 1 tab, Oral, BID, # 60 tab, 2 Refill(s), Pharmacy: [id number], 157.48, cm, 02/12/24 8:34:00 SALES PROGRAM MANAGER, Height, 91.63, kg, 02/28/24 15:55:00 SALES PROGRAM MANAGER, Weight Dosing Start Date: 02/28/24 Status: Ordered Quantity: 60.0 Unit: tab Repeat number: 3 venlafaxine 37.5 mg oral capsule, extended release 1 cap, Oral, Daily, # 30 cap, 2 Refill(s), [id number], 157.48, cm, 02/12/24 8:34:00 SALES PROGRAM MANAGER, Height, 91.63, kg, 02/28/24 15:55:00 SALES PROGRAM MANAGER, Weight Dosing Start Date: 02/28/24 Status: Ordered Quantity: 30.0 Unit: cap Repeat number: 3 Wellbutrin SR 150 mg/12 hours oral tablet, extended release 150 mg = 1 tab, Oral, BID, Start 1 tab daily x 3 days, then increase to 1 tab twice daily, # 60 tab, 0 Refill(s), Pharmacy: [facility]/pharmacy #[id number], 157.48, cm, 05/01/24 10:09:00 SALES PROGRAM MANAGER, Height, 86.18, kg, 05/01/24 10:13:00 SALES PROGRAM MANAGER, Weight Dosing Start Date: 05/02/24 Status: Ordered Quantity: 60.0 Unit: tab Repeat number: 1 Indications: Depression, unspecified; Anxiety disorder, unspecified; Problem List Condition Confirmation Course Effective Dates Status H ealth Status Informant Acne Confirmed Active Anxiety Confirmed Active Breast lump on left side at 3 o'clock position Confirmed Active Bursitis of left foot Confirmed Active Chronic back pain Confirmed Active Headache, chronic migraine without aura, intractable Confirmed Active Chronic neck pain Confirmed Active Chronic pain Confirmed Active Chronic pain Confirmed Active Congenital biliary atresia Confirmed Active Constipation Confirmed Active Degenerative disc disease, cervical Confirmed Active Difficulty walking Confirmed Active Gout Confirmed Active History of liver transplant Confirmed Active Heart murmur Confirmed Active Pain of left heel Confirmed Active History of fall Confirmed Active [...] Active PUD (peptic ulcer disease) Confirmed Active Plantar fasciitis of left foot Confirmed Active Thrombocytopenia Confirmed Active Right shoulder pain Confirmed Active 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 Edema Confirmed Active Tachycardia Confirmed Active Tobacco use Confirmed Active UTI symptoms Confirmed Active 1had skin tag in groin [...] Pulse Rate [60-100 bpm] 68 bp m (07/17/24 10:12 AM) Respiratory Rate [12-24 br/min] 16 br/mi n (07/17/24 10:12 AM) Social History Social History Type Response Tobacco Current everyday tob acco user Tobacco Use:. 1 Sex Sex Representation Female (finding) 1Pt states that she smokes half a pack a day. Physician Outpatient Note * Samm Barros DPM: PERFORM Event Display: Office Clinic Note Physician Authored Date: [id number] MISHA JACKSON :1980 Age:43 years Sex:Female Registration Date:07/17/2024 Primary Care Physician: Lyly Fiore NP Chief Complaint New pt here for c/o left foot bone spur paain. Pt was seen in ER and had XRs done. Pt is not diabetic, she does smoke, and has not seen a physical instructor for this issue. Pt is currently taking tylenol forthe pain. History of Present Illness ?? This a 43-year-old female patient here with left heel pain. ??She states that she has a heel spur. ??She has been in the emergency room at least twice for this problem.?? She states that she also has chronic back and neck problems that she is going to [place]??to see an orthopedic surgeon??in the upcoming weeks.?? She denies any recent foot or ankle injury.?? She has had left foot pain for many years its on the bottom of the left foot. ??It does affect her ability to walk and wear shoes. ??He can be sharp and severe.?? It is worse with activity and alleviated with rest. Review of Systems ?? Constitutional:??Patient denies activity intolerance, denies changes in speech, denies any fevers or chills HEENT:??Patient denies facial swelling, head enlargement,??nasal congestion, nasal deformity Cardiovascular: Patient denies activity intolerance, ankle swelling, chest pain Respiratory:??Patient denies barking cough, bloody sputum, chest congestion Breast:??Patient denies breast numbness, breast engorgement Gastrointestinal:??Patient denies abdominal cramping, abdominal distention Genitourinary:??Patient denies blood in urine, flank pain Endocrine:??Patient denies cold intolerance, excessive thirst Musculoskeletal:??She admits??left foot pain, she admits back and neck pain,??cold extremities,??extremity weakness Neurological:??Patient denies altered mental status, altered speech, aphasia Integumentary:??Patient denies blisters, bruising, cool skin Hematologic/lymphatic:??Patient denies abnormal bleeding, easy bruising Psychiatric:??Patient denies agitation, anxiety, binge eating ?? Physical Exam Vitals & Measurements HR:??68??(Peripheral)?? RR:??16?? SpO2:??98%?? Pain Score:??5? Constitutional:??Alert and oriented x 3, cooperative Eyes:??No erythema, no drainage Cardiovascular:??Pulses are palpable,??no edema lower extremities Respiratory:??Regular rate, no accessory muscle use, no labored breathing Musculoskeletal:??There is tenderness to palpation left plantar calcaneus and mid arch left foot and along the plantar fascia. ??There is contracture left ankle with the knee extended??with attempteddorsiflexion Neurological exam:??Light touch, gross sensation intact lower extremities Integumentary:??No erythema, no increased warmth, no ecchymosis, no drainage lower extremities Psychiatric:??Mood is normal, affect is normal ? Procedure ?? [id number]??I injected 0.5 cc of dexamethasone with 2 cc of 1% lidocaine plain into the left plantar fascia ?? . ??She tolerated the procedure well. ??Postprocedure education given Assessment/Plan 1.??Pain of left heel??M79.672,??Left foot pain??M79.672 ?? I educated the patient on all problems. ??Discussed different treatment options. ??I discussed different shoes, insoles, padding and range of motion.?? I discussed surgical nonsurgical treatment options, the risk, benefits and alternatives ?? I discussed prescription medications.?? She has a history of a liver and kidney transplant. ??She is not a candidate for??NSAIDs ?? I discussed steroid injections, she consented. ??Postprocedure education given,??I discussed surgical correction of the problem,??the operative and postoperative course, the risks involved ?? I discussed and offered therapy ?? I recommended icing and stretching and splinting ?? Call with any worsening. ? Follow-up 3 weeks ? 2.??Difficulty walking??R26.2 3.??Plantar fasciitis of left foot??M72.2 4.??Bursitis of left foot??M77.52,??Bone spur of left foot??M77.52 Medications and Immunizations This Visit Given dexamethasone, 2 mg, Intra-articular. For: Bone spur of left foot,??Left foot pain Problem List/Past Medical History Ongoing Acne Anxiety Breast lump on left side at 3 o'clock position Bursitis of left foot Cervicalgia Chronic back pain Chronic neck pain Chronic pain Chronic pain Chronic paronychia of finger Congenital biliary atresia Constipation Degenerative disc disease, cervical Difficulty walking Edema Gout Headache, chronic migraine without aura, intractable Heart murmur History of fall History of kidney transplant History of liver transplant Idiopathic thrombocytopenic purpura Migraine headache Numbness and tingling of right arm Obesity Pain of left heel Pain of right scapula Pain, joint, multiple sites Plantar fasciitis of left foot PUD (peptic ulcer disease) Pulmonary nodules Right knee pain Right shoulder pain Squamous cell carcinoma in situ Tachycardia Thrombocytopenia Tobacco use UTI symptoms Historical Abdominal pain in female Abscess of [...] (05/08/2020)??? delivery???cyst removal from breast???Hernia???liver transplant Medications Abilify 2 mg oral tablet, 2 mg= 1 tab, Oral, Daily, 2 refills amLODIPine 5 mg oral tablet, 5 mg= 1 tab, Oral, Daily, 11 refills azaTHIOprine 50 mg oral tablet, 50 mg= 1 tab, Oral, Daily butalbital/acetaminophen/caffeine 50 mg-325 mg-40 mg oral tablet, 1 tab, Oral, Daily Envarsus XR 1 mg oral tablet, extended release Envarsus XR 4 mg oral tablet, extended release LORazepam 0.5 mg oral tablet, TAKE ONE TABLET BY MOUTH DAILY NEEDED FOR ANXIETY Macrobid 100 mg oral capsule, 100 mg= 1 cap, Oral, BID metoprolol succinate 100 mg oral capsule, extended release, 100 mg= 1 cap, Oral, BID, 11 refills predniSONE 5 mg oral tablet, 5 mg= 1 tab, Oral, Daily, with food or milk Topamax 50 mg oral tablet, 50 mg= 1 tab, Oral, BID, 2 refills venlafaxine 37.5 mg oral capsule, extended release, 1 cap, Oral, Daily, 2 refills Wellbutrin SR 150 mg/12 hours oral tablet, extended release, 150 mg= 1 tab, Oral, BID, Start 1 tab daily x 3 days, then increase to 1 tab twice daily Allergies NSAIDs Toradol??(Kidney failure as a complication [...] (Tdap) adult/adol 05/25/2012 Recorded Electronically Signed on 07/17/2024 11:07 CDT Samm Barros DPShlomo Patient Care team information Care Team Personnel Name: Jessee Jones ANALOG IC DESIGN ARCHITECT Position: Physician Member Role: Nurse Practitioner Address: [address] [place] [address], [facility] [address] Telecom: Name: Latoya Marquez ANALOG IC DESIGN ARCHITECT Position: Physician Member Role: Nurse Practitioner Address: [address] [place] [address] Telecom: Name: Leonila Gonzalez ANALOG IC DESIGN ARCHITECT Position: Physician Member Role: Nurse Practitioner Address: [address] [place] [address] Telecom: Name: Beth Brandt ANALOG IC DESIGN ARCHITECT Position: Physician Member Role: Nurse Practitioner Address: [address] [place] [address] Telecom: Name: Pillo Moe ANALOG IC DESIGN ARCHITECT Position: Physician Member Role: Nurse Practitioner Address: [address] [place] [address], [facility] Telecom: Name: Lyly Fiore ANALOG IC DESIGN ARCHITECT Position: Physician Member Role: Primary Care Physician Address: [address] [place], [place] [phone] Telecom: Care Team Related Persons Name: STACIA JONES Name: ROBYN JAMA Name: NAIF CHOI Name: MADY CHEN Name: MADY CHEN Insurance Providers Guarantor name: MISHA JACKSON [facility] Information #: 1 Payer: [employer] Member Number: [id number] Policy Number: NA Group Number: [id number] Payer Identifier: [id number] Health Plan Information #: 2 Payer: [employer] Member Number: [id number] Policy Number: NA Group Number: [id number] Payer Identifier: [id number]
--- OUTSIDE RECORDS SUMMARY | 2024-07-20 15:19 | XMS_ITS | Encounter Summary ---
Author Organization [facility] Address [address] [place] [id number] Care Team Providers Care Wash Tank Tender Name Role Phone Ashley ZUNIGA MD, Hermes Primary Care Provid er Lyly Fiore NP Primary Care Provider Encounter Details Date Type Department Care Team (Late st Contact Info) Description 08/25/2018 Abstract [facility] CONVERSION [address] [place] [address] , Generic Conversion, Social History Tobacco Use Types Packs/Day Years Used Date Smoking Tobacco: Every Day Cigarettes 0.5 15 Smokeless Tobacco: Never Alcohol Use Standard Drinks/Week Comments No 0 (1 standard drink = 0.6 oz pur e alcohol) Comments No Sex and Gender Information Value Date Recorded Sex Assigned at Female 04/05/2024 4:26 PM INSOLVENCY PRACTITIONER Legal Sex Female 9:15 PM INSOLVENCY PRACTITIONER Gender Identity Not on file Sexual Orientation Not on file documented as of this encounter Plan of Treatment Not on file documented as of this encounter Visit Diagnoses Not on filedocumented in this encounter Additional Health Concerns Infection Onset Date Last Indicated Resolved Time COVID-19 Rule Out 03/30/2020 03/30/2020 03/30/2020 9:29 PM INSOLVENCY PRACTITIONER COVID-19 Rule Out 03/30/2020 03/30/2020 03/31/2020 12:28 PM INSOLVENCY PRACTITIONER COVID-19 Rule Out 02/16/2024 02/16/2024 02/16/2024 9:16 PM INSOLVENCY PRACTITIONER Rhinovirus 02/16/2024 02/16/2024 02/26/2024 12:3 2 AM INSOLVENCY PRACTITIONER documented as of this encounter Care Teams Wash Tank Tender Relationship Specialty Start Date End Date Hermes Ramirez III, MD [address] [address] PCP - General FAMILY PRACTICE 06/20/17 04/13/24 Lyly Fiore NP [address] [place] [address] PCP - General NURSE PRACTITIONER 04/14/24 documented as of this encounter
--- OUTSIDE RECORDS SUMMARY | 2024-07-20 15:19 | XMS_ITS | Clinical Summary ---
Author Organization [facility] Address [address] [place] [address] Care Team Providers Care [place] Superintendent Name Role Phone Beatriz Lee MD Unavailable [phone] Lyly Fiore NP Primary Care Provider Taylor [...] 2 (two) times a day 60 tablet 06/13/19 25 Active Additional Information Patient not taking.Reported on 06/26/2024 gabapentin (NEURONTIN) 300 mg capsule Take 1 capsule (300 mg total) by mouth 3 (three) times a day 90 capsule 06/13/19 25 Active metoprolol (LOPRESSOR) 100 mg tablet Take 1 tablet (100 mg total) by mouth 2 (two) times a day 60 tablet 06/13/[address] (PROTONIX) 40 mg EC tabletIndicatio ns:Treatment of Non-Bleeding Gastric Disorder Take 1 tablet (40 mg total) by mouth 2 (two) times a day 60 tablet 06/13/19 25 Active venlafaxine (EFFEXOR) 37.5 mg tablet Take 0.5 tablets (18.75 mg total) by mouth 2 (two) times a day before breakfast and dinner 30 tablet 06/13/19 25 Active Abilify 2 mg tablet Take 1 tablet (2 mg total) by mouth daily 06/21/19 25 Active calcium carbonate (OS-GERARDO) 1,250 mg (500 mg elemental) tablet Take 500 mg by mouth 11/29/19 24 Active melatonin tablet Take 1 tablet (3 mg total) by mouth nightly Active multivitamin with minerals (Hair,Skin and Nails) tablet Take 1 tablet by mouth daily Active senna-docusate (PERICOLACE) 8.6-50 mg Take 2 tablets by mouth daily as needed 11/29/19 24 Active tacrolimus XR (ENVARSUS XR) 1 mg tablet extended release 24 hrIndications:P revention of Kidney Transplant Rejection Take 4 tablets (4 mg total) by mouth daily 360 tablet 3 06/27/19 25 026 Active azaTHIOprine (IMURAN) 100 mg tablet Take 1 tablet (100 mg total) by mouth daily 30 tablet 06/27/19 25 026 Active predniSONE (DELTASONE) 5 mg tablet Take 1 tablet (5 mg) by mouth daily 30 tablet 06/27/19 25 026 Active azaTHIOprine (IMURAN) 100 mg tablet Take 1 tablet (100 mg total) by mouth daily 30 tablet 11 06/14/19 25 025 Discontinu ed(Reorder ) predniSONE (DELTASONE) 5 mg tablet Take 1 tablet (5 mg) by mouth daily 30 tablet 06/13/19 25 025 Discontinu ed(Reorder ) sodium polystyrene with sorbitol (KAYEXALATE) 0.25-0.3 gram/mL suspensionIndic ations:hyperkal emia Take 60 mL (15 g total) by mouth daily 1800 mL 06/14/19 25 025 tacrolimus XR (ENVARSUS XR) 1 mg tablet extended release 24 hrIndications:P revention of Kidney Transplant Rejection Take 4 tablets (4 mg total) by mouth daily 120 tablet 3 06/14/19 25 025 Discontinu ed(Reorder ) Active Problems Patient Care Coordination No te Formatting of this note migh t be different from the original. Lab: [facility]. . . Pharmacy: [place], [place] Patient enrolled in [employer] assistance program for Envarsus until 03/2025 -[facility] for script Problem Noted Date Diagnosed [...] Transplant starting process of assuming care from [facility], but in short term they recommend patient follow up with renal transplant at [facility]. - She is NOW actively enrolled in the [employer] free patient assistance program through mar 2025 - script needs to be sent to [facility] (sent). Hyperbilirubinemia 04/16/2020 Assessment & Plan (04/16/2020 5:01 AM TOOL MACHINIST): - T. Bili of 7 (last was [...] 07/25/2019 Assessment & Plan (04/16/2020 2:25 AM TOOL MACHINIST): See hyperbili problem. Concern for ascites Assessment [...] 12/14/2016 Assessment & Plan (04/16/2020 2:26 AM TOOL MACHINIST): - Chronic, concerned that this may be [...] liver and kidney transplant 04/2020. 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 We would need to call [facility] to identify a contracted center ([phone]). She lives close enough to [place] that would be the most likely city she could travel to. She also noted that she could always remarry an ex- as he has insurance that may be covered at [facility]. Appreciate note from nephrology and agree with restarting oral diuretics. Can continue tacrolimus at the current dose. MRI/MRCP completed and will review with radiology to identify if any role for PTC. Assessment & Plan (04/16/2020 2:26 AM TOOL MACHINIST): S/p liver tranplant in 1992 for biliary [...] meds Assessment & Plan (04/16/2020 5:01 AM TOOL MACHINIST): Unclear if progression of CKD vs acute [...] Cr of 1.8. She follows with local press breaker Dr. Mathew and thinks her baseline is 2.1. She was at 2.3 at [facility]. She took some diuretics at home and was given lasix at [facility] ED. --UA, urine lytes --get records from her press breaker to find out baseline --random tacro level --monitor Is & Os; avoid nephrotoxins Encounters Date Type Department Care Team Description 07/19/2024 Telephone [facility] Transplant Liver [address] [facility] [address] Mailstop 90-78-101 [place] [address] Karmen Garsia RN After Hours; Abdominal Pain 07/17/2024 Telephone [facility] Transplant Liver [address] [facility] [address] Mailstop 84-39-300 [place] [address] Lorena Turner 07/12/2024 5:48 PM CDT - 07/12/2024 11:59 PM CDT Hospital Encounter [facility] ([facility]) [address] [place] [address] Discharge Disposition: Discharge to home or self care 07/12/2024 5:46 PM CDT - 07/12/2024 11:59 PM CDT Hospital Encounter [facility] ([facility]) [address] [place] [address] Discharge Disposition: Discharge to home or self care 07/12/2024 5:44 PM CDT - 07/12/2024 11:59 PM CDT Hospital Encounter [facility] ([facility]) [address] [place] [address] Discharge Disposition: Discharge to home or self care 07/12/2024 5:43 PM CDT - 07/12/2024 11:59 PM CDT Hospital Encounter [facility] ([facility]) [address] [place] [address] Discharge Disposition: Discharge to home or self care 07/12/2024 Telephone [facility] Nephrology [address] [place] [address] for Advanced Medicine 5th [place] [address] [place] [address] Wilson Swift MD 07/11/2024 Telephone [facility] Transplant Liver [address] [facility] [address] Mailstop 90-24-116 [place] [address] Dafne Dukes RN 07/11/2024 Telephone [facility] Transplant Liver [address] [facility] [address] Mailstop 9029-948 [place] [address] Yulisa Welch 07/10/2024 Telephone [facility] Transplant Liver [address] [facility] [address] Mailstop 90-68-671 [place] [address] Liyah Kamara 07/09/2024 8:48 AM CDT - 07/09/2024 11:59 PM CDT Hospital Encounter [facility] ([facility]) [address] [place] [address] Discharge Disposition: Discharge to home or self care 07/09/2024 8:46 AM CDT - 07/09/2024 11:59 PM CDT Hospital Encounter [facility] ([facility]) [address] [place] [address] Discharge Disposition: Discharge to home or self care 07/09/2024 8:44 AM CDT - 07/09/2024 11:59 PM CDT Hospital Encounter [facility] ([facility]) [address] [place] [address] Discharge Disposition: Discharge to home or self care 07/09/2024 Telephone [facility] Transplant Liver [address] [facility] [address] Mailstop 37-25-000 [place] [address] Dafne Dukes, ANSON 07/09/2024 Telephone [facility] Transplant Liver [address] [facility] [address] Mailstop 9029-459 [place] [address] Yulisa Welch 07/04/2024 Telephone [facility] Transplant Liver [address] [facility] [address] Mailstop [phone] [place] [address] Lorena Turner 07/04/2024 Telephone [facility] Transplant Liver [address] [facility] [address] Mailstop -330 [place] [address] Lorena Turner 07/03/2024 Telephone [facility] Transplant Liver [address] [facility] [address] Mailstop -420 [place] [address] Dafne Dukes, ANSON 07/02/2024 Telephone [facility] Transplant Liver [address] [place] [address] [address] Mailstop -81-[address] [place] [address] Dafne Dukes RN 07/02/2024 Telephone [facility] Transplant Liver [address] [place] [address] [address] [place] [phone] [place] [address] Dafne Dukes RN 06/26/2024 9:30 AM CDT Office Visit [facility] Gasteroenterology [address] [facility] 12th [place] [address] [place] [phone] Beatriz Lee MD Nicotine dependence with current use 06/26/2024 Orders Only [facility] Transplant Liver [address] [place] [address] [address] [facility] -00-0 [place] [address] Dafne Dukes RN Status post liver transplant (HCC) (Primary Dx); Encounter for long-term (current) use of medications 06/26/2024 Telephone [facility] Transplant Liver [address] [place] [address] [address] Mailstop -95-7 [place] [address] Lorena Turner 06/26/2024 Orders Only [facility] Transplant Liver [address] [place] [address] [address] Mailstop -55-526 [place] [address] Dafne Dukes RN History of liver transplant (HCC) (Primary Dx); Encounter for long-term (current) use of medications 06/26/2024 Documentation [facility] Transplant Liver [address] [facility] [address] Mailstop 32-01-235 [place] [address] Dafne Dukes RN 06/26/2024 Telephone [facility] Transplant Liver [address] [facility] [address] Mailstop 40-41-251 [place] [address] Dafne Dukes RN 06/14/2024 SHOP/CHAP Initial Eligibility Review [facility] OP CASE MANAGEMENT [address] [place] [phone] Shireen Griffin RN 06/13/2024 Orders Only [facility] Transplant Liver [address] [place] [address] Mailstop [phone] [place] [address] Dafne Dukes RN Kidney transplanted (Primary Dx) 06/06/2024 Telephone [facility] Transplant Kidney [address] [place] [address] Mailstop 51-35-280 [place] [address] Netta Mcintosh 05/29/2024 3:11 PM CDT - 06/13/2024 3:04 PM CDT Hospital Encounter 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 Transplant Liver [address] [place] [address] [address] Mailstop 41-67-270 [place] [address] Liyah KamaraFelix 05/07/2024 Telephone [facility] Transplant Liver [address] [facility] [address] Mailstop 04-89-302 [place] [address] Lorena Turner 05/07/2024 Telephone [facility] Transplant Liver [address] [facility] [address] Mailstop [phone] [place] [address] Lorena Turner 05/06/2024 Documentation [facility] Transplant Liver [address] [facility] [address] Mailstop 52-88-433 [place] [address] Taylor Kitchen RN 05/06/2024 Telephone [facility] Transplant Liver [address] [facility] [address] Mailstop 76-78-291 [place] [address] Lorena Turner Referral - Liver Txp from Last 3 Months Surgical History Surgery Date Site/Laterality Comments [place] COLONOSCOPY FLX DX W/ROMAIN J SPEC WHEN [...] Frequency of Binge Drinking Not on file 01/2 09/2020 PHQ-2 Answer Date Recorded PHQ-2 Total Score [...] on file Legal Sex Female 10:10 PM TOOL MACHINIST Gender Identity Not on file Sexual Orientation [...] Procedure Name Priority Date/Time Associated Diagnosis Comments NEURO CT OUTSIDE REFERENCE Routine 07/12/2024 5:[address] OUTSIDE REFERENCE Routine 07/12/2024 5:46 PM CDT NEURO MR OUTSIDE REFERENCE Routine 07/12/2024 5:44 PM CDT NEURO MR OUTSIDE REFERENCE Routine 07/12/2024 5:43 PM CDT XR TRANSFER OF OUTSIDE FILMS Routine 07/09/2024 8:48 AM CDT XR TRANSFER OF OUTSIDE FILMS Routine 07/09/2024 8:46 AM CDT XR TRANSFER OF OUTSIDE FILMS Routine 07/09/2024 8:44 AM CDT EGFR Routine 06/13/2024 5:15 AM CDT DIFFERENTIAL [...] CDT HEPATITIS PANEL, ACUTE Routine 6:35 AM TOOL MACHINIST from Last 3 Months or Most Recently Relevant to Health Maintenance Results * Neuro CT Outside Reference (07/12/2024 5:48 PM CDT) Impressions RAD_PACS_BJ - 07/12/2024 5:48 PM CDT These images are for Reference purposes only and have not been reviewed by [facility] Radiology. There will be no report generated by a [facility] Radiologist. Narrative RAD_PACS_BJ - 07/12/2024 5:48 PM CDT EXAMINATION: Images For Reference Purposes Only Result [facility] Jessee Morton MD [facility] [place] PROCEDURES Final Re sult Performing Organization Address [facility] Co de Phone Number [email or web address] * Neuro CT Outside Reference (07/12/2024 5:46 PM CDT) Impressions RAD_PACS_[facility]J - 07/12/2024 5:46 PM CDT These images are for Reference purposes only and have not been reviewed by [facility] Radiology. There will be no report generated by a [facility] Radiologist. Narrative RAD_PACS_BJ - 07/12/2024 5:46 PM CDT EXAMINATION: Images For Reference Purposes Only Jessee Morton MD IM CT PROCEDURES Final Re sult Performing Organization Address [facility]/ZIP Co de Phone Number [email or web address] * Neuro MR Outside Reference (07/12/2024 5:44 PM CDT) Impressions [facility] - 07/12/2024 5:44 PM CDT These images are for Reference purposes only and have not been reviewed by [facility] Radiology. There will be no report generated by a [facility] Radiologist. Narrative [facility] - 07/12/2024 5:44 PM CDT EXAMINATION: Images For Reference Purposes Only Jessee Morton MD IMG MRI PROCEDURES Final R esult Performing Organization Address [facility] de Phone Number [email or web address] * Neuro MR Outside Reference (07/12/2024 5:43 PM CDT) Impressions [facility] - 07/12/2024 5:43 PM CDT These images are for Reference purposes only and have not been reviewed by [facility] Radiology. There will be no report generated by a [facility] Radiologist. Narrative [facility]_P[facility] - 07/12/2024 5:43 PM CDT EXAMINATION: Images For Reference Purposes Only Result [facility] Jessee Morton MD IMG MRI PROCEDURES Final R esult Performing Organization Address [facility] de Phone Number [email or web address] * XR Outside Reference (07/09/2024 8:48 AM CDT) Impressions [facility] - 07/09/2024 8:48 AM CDT These images are for Reference purposes only and have not been reviewed by [facility] Radiology. There will be no report generated by a [facility] Radiologist. Narrative [facility] - 07/09/2024 8:48 AM CDT EXAMINATION: Images For Reference Purposes Only Result [facility] Jessee Morton MD IMG XR PROCEDURES Final Re sult Performing Organization Address [facility] Co de Phone Number [email or web address] * XR Outside Reference (07/09/2024 8:46 AM CDT) Impressions RAD_PACS_[facility] - 07/09/2024 8:46 AM CDT These images are for Reference purposes only and have not been reviewed by [facility] Radiology. There will be no report generated by a [facility] Radiologist. Narrative RAD_PACS_BJ - 07/09/2024 8:46 AM CDT EXAMINATION: Images For Reference Purposes Only Jessee Morton MD IMG XR PROCEDURES Final Re sult Performing Organization Address [facility] Co de Phone Number [email or web address] * XR Outside Reference (07/09/2024 8:44 AM CDT) Impressions [email or web address]_KOFFI - 07/09/2024 8:44 AM CDT These images are for Reference purposes only and have not been reviewed by [facility] Radiology. There will be no report generated by a [facility] Radiologist. Narrative RAD_PACS_KOFFI - 07/09/2024 8:44 AM CDT EXAMINATION: Images For Reference Purposes Only Jessee Morton MD IMG XR PROCEDURES Final Re sult Performing Organization Address [facility] Co de Phone Number [email or web address] * (ABNORMAL) eGFR (06/13/2024 5:15 AM CDT) eGFR 31(L) >=60 mL/min/1. 73 m2 Comment: [...] Inclusion of Race in Diagnosing Kidney Disease, DUGLAS 2020). The CKD-EPI equation should not be used for patients with unstable renal function and has not been validated in children and those over 70. Current interpretive data was last reviewed 2021. Blood 06/13/2024 5:15 AM CDT 06/13/2024 6:05 AM CDT us Patricia Davidson MD PhD LAB BLOOD ORDERABLES Final Result [facility] Department [place] [address] * Differential, auto (06/13/2024 5:15 AM CDT) Neutrophil abs 3.2 1.5 - 6.5 K/cumm Imm gran abs 0.0 0.0 - 0.1 K/cumm [facility] Lymphocyte abs 0.9 0.8 - 3.3 K/cumm [facility] Monocyte abs 0.3 0.2 - 0.8 K/cumm [facility] Eosinophil abs 0.2 0.0 - 0.5 K/cumm [facility] Basophil abs 0.0 0.0 - 0.1 K/cumm [facility] Neutrophil pct 69.4 % [facility] Comment: Interpretive Data Percent cell count reference ranges are not reported, since discordance with absolute values may lead to misinterpretation of CBC data. Current Interpretive Data was last revised on 2017. Imm gran pct 0.2 % [facility] Comment: Interpretive Data Percent cell count reference ranges are not reported, since discordance with absolute values may lead to misinterpretation of CBC data. Current Interpretive Data was last revised on 2017. Lymphocyte pct 20.4 % [facility] Comment: Interpretive Data Percent cell count reference ranges are not reported, since discordance with absolute values may lead to misinterpretation of CBC data. Current Interpretive Data was last revised on 2017. Monocyte pct 5.9 % [facility] Comment: Interpretive Data Percent cell count reference ranges are not reported, since discordance with absolute values may lead to misinterpretation of CBC data. Current Interpretive Data was last revised on 2017. Eosinophil pct 3.9 % [facility] Comment: Interpretive Data Percent cell count reference ranges are not reported, since discordance with absolute values may lead to misinterpretation of CBC data. Current Interpretive Data was last revised on 2017. Basophil pct 0.2 % [facility] Comment: Interpretive Data Percent cell count reference ranges are not reported, since discordance with absolute values may lead to misinterpretation of CBC data. Current Interpretive Data was last revised on 2017. Blood 06/13/2024 5:15 AM CDT 06/13/2024 6:05 AM CDT us Martha Butterfield MD LAB BLOOD ORDERABLES F inal Result Performing Organization Address [facility] Co de Phone Number [facility] Department [place] [address] * Tacrolimus level trough (06/13/2024 5:15 AM CDT) Pathologist [facility] Tacrolimus trough 7.4 ng/mL Comment: Interpretive Data Testing performed by liquid chromatography-tandem mass spectrometry. Therapeutic concentrations vary depending on type of transplanted organ and time elapsed since transplant. Typical trough concentrations range from 5-15 ng/mL. This test was developed and its performance characteristics determined by the [facility] consistent with CLIA requirements. This test has not been cleared or approved by the [place] Food and Drug administration. Current interpretive data last reviewed 2019. Blood 06/13/2024 5:15 AM CDT 06/13/2024 6:05 AM CDT us Patricia Davidson MD PhD LAB BLOOD ORDERABLES Final Result Performing Organization Address [facility]/ZIP Co de Phone Number [facility] Department [place] [address] * (ABNORMAL) CBC with auto differential (06/13/2024 5:15 AM CDT) WBC 4.6 3.8 - 9.9 K/cumm Hgb 11.1(L) 11.9 - 15.5 g/dL [facility] Hct 32.8(L) 35.6 - 45.5 % [facility] Plt 112(L) 150 - 400 K/cumm [facility] MPV 11.6 9.1 - 12.3 fL [facility] RBC 3.13(L) 3.90 - 5.20 M/cumm [facility] MCV 104.8(H) 81.3 - 96.4 fL [facility] MCH 35.5(H) 27.1 - 33.3 pg [facility] MCHC 33.8 32.3 - 35.7 g/dL [facility] RDW CV 14.8 11.1 - 14.9 % [facility] RDW SD 56.5(H) 35.7 - 48.1 fL [facility] NRBC abs 0.00 0.00 - 0.01 K/cumm [facility] Blood 06/13/2024 5:15 AM CDT 06/13/2024 6:05 AM CDT us Martha Butterfield MD LAB BLOOD ORDERABLES F inal Result [facility] Department [place] [address] * (ABNORMAL) Renal function panel (06/13/2024 5:15 AM CDT) [facility] Sodium 144 135 - 145 mmol/L Potassium, pl 4.9 3.3 - 4.9 mmol/L [facility] Chloride 111(H) 97 - 110 mmol/L [facility] CO2 25 22 - 32 mmol/L [facility] Anion gap 8 2 - 15 mmol/L [facility] [facility] 27(H) 6 - 25 mg/dL [facility] Creatinine 2.03(H) 0.60 - 1.10 mg/dL [facility] Glucose 121 70 - 199 mg/dL [facility] Comment: Interpretive Data Fasting glucose >/= 126 [...] 2022. Calcium 8.6 8.5 - 10.3 mg/dL [facility] Phosphorus, pl 3.9 2.3 - 4.5 mg/dL [facility] Albumin 3.6 3.5 - 5.0 g/dL [facility] Blood 06/13/2024 5:15 AM CDT 06/13/2024 6:05 AM CDT us Patricia Davidson MD PhD LAB BLOOD ORDERABLES Final Result [facility] Department [place] [address] * (ABNORMAL) eGFR (06/12/2024 5:52 AM CDT) [...] BLOOD ORDERABLES Final Result Performing Organization Address [facility] Phone Number [facility] [place] [address] * Tacrolimus level trough (06/12/2024 5:52 AM CDT) Pathologist [facility] Tacrolimus trough 6.2 ng/mL Comment: Interpretive Data Testing performed by liquid chromatography-tandem mass spectrometry. Therapeutic concentrations vary depending on type of transplanted organ and time elapsed since transplant. Typical trough concentrations range from 5-15 ng/mL. This test was developed and its performance characteristics determined by the [facility] consistent with CLIA requirements. This test has not been cleared or approved by the US Food and Drug administration. Current interpretive data last reviewed 2019. Blood 06/12/2024 5:52 AM CDT 06/12/2024 6:18 AM CDT Result [facility] Patricia Davidson MD PhD LAB BLOOD ORDERABLES Final Result Performing Organization Address [facility] [place] [address] * (ABNORMAL) Renal function panel (06/12/2024 5:52 AM CDT) Pathologist [facility] Sodium 145 135 - 145 mmol/L Potassium, pl 5.0(H) 3.3 - 4.9 mmol/L [facility] Chloride 112(H) 97 - 110 mmol/L [facility] CO2 27 22 - 32 mmol/L [facility] Anion gap 6 2 - 15 mmol/L [facility] BUN 30(H) 6 - 25 mg/dL [facility] Creatinine 2.16(H) 0.60 - 1.10 mg/dL [facility] Glucose 101 70 - 199 mg/dL [facility] Comment: Interpretive Data Fasting glucose >/= 126 [...] 2022. Calcium 8.7 8.5 - 10.3 mg/dL [facility] Phosphorus, pl 4.3 2.3 - 4.5 mg/dL [facility] Albumin 3.4(L) 3.5 - 5.0 g/dL [facility] Blood 06/12/2024 5:52 AM CDT 06/12/2024 6:17 AM CDT Patricia Davidson MD PhD LAB BLOOD ORDERABLES Final Result [facility] [place] [address] * Potassium, whole blood (06/11/2024 11:29 PM CDT) Pathologist [facility] Potassium, bld 4.7 3.3 - 4.9 mmol/L Blood 06/11/2024 11:2 9 PM CDT 06/11/2024 11:48 PM CDT us Patrick Hernandez MD LAB BLOOD ORDERABLES Fi nal Result [facility] [place] [address] * (ABNORMAL) eGFR (06/11/2024 5:14 AM CDT) Pathologist [facility] eGFR 28(L) >=60 mL/min/1. 73 m2 Comment: [...] MD PhD LAB BLOOD ORDERABLES Final Result [facility] Department [place] [address] * Differential, auto (06/11/2024 5:14 AM CDT) Pathologist [facility] Neutrophil abs 2.3 1.5 - 6.5 K/cumm Imm gran abs 0.0 0.0 - 0.1 K/cumm [facility] Lymphocyte abs 1.0 0.8 - 3.3 K/cumm [facility] Monocyte abs 0.3 0.2 - 0.8 K/cumm [facility] Eosinophil abs 0.2 0.0 - 0.5 K/cumm [facility] Basophil abs 0.0 0.0 - 0.1 K/cumm [facility] Neutrophil pct 61.8 % [facility] Comment: Interpretive Data Percent cell count reference ranges are not reported, since discordance with absolute values may lead to misinterpretation of CBC data. Current Interpretive Data was last revised on 2017. Imm gran pct 0.5 % [facility] Comment: Interpretive Data Percent cell count reference ranges are not reported, since discordance with absolute values may lead to misinterpretation of CBC data. Current Interpretive Data was last revised on 2017. Lymphocyte pct 26.6 % [facility] Comment: Interpretive Data Percent cell count reference ranges are not reported, since discordance with absolute values may lead to misinterpretation of CBC data. Current Interpretive Data was last revised on 2017. Monocyte pct 6.6 % [facility] Comment: Interpretive Data Percent cell count reference ranges are not reported, since discordance with absolute values may lead to misinterpretation of CBC data. Current Interpretive Data was last revised on 2017. Eosinophil pct 4.2 % [facility] Comment: Interpretive Data Percent cell count reference ranges are not reported, since discordance with absolute values may lead to misinterpretation of CBC data. Current Interpretive Data was last revised on 2017. Basophil pct 0.3 % [facility] Comment: Interpretive Data Percent cell count reference ranges are not reported, since discordance with absolute values may lead to misinterpretation of CBC data. Current Interpretive Data was last revised on 2017. Blood 06/11/2024 5:14 AM CDT 06/11/2024 6:24 AM CDT Martha Butterfield MD LAB BLOOD ORDERABLES F inal Result [facility] Department [place] [address] * Tacrolimus level trough (06/11/2024 5:14 AM CDT) Tacrolimus trough 5.4 ng/mL Comment: Interpretive Data Testing performed by liquid chromatography-tandem mass spectrometry. Therapeutic concentrations vary depending on type of transplanted organ and time elapsed since transplant. Typical trough concentrations range from 5-15 ng/mL. This test was developed and its performance characteristics determined by the [facility] consistent with CLIA requirements. This test has not been cleared or approved by the US Food and Drug administration. Current interpretive data last reviewed 2019. Blood 06/11/2024 5:14 AM CDT 06/11/2024 5:51 AM CDT us Patricia Davidson MD PhD LAB BLOOD ORDERABLES Final Result Performing Organization Address [facility] de Phone Number [facility] Department [place] [address] * (ABNORMAL) CBC with auto differential (06/11/2024 5:14 AM CDT) Pathologist [facility] WBC 3.8 3.8 - 9.9 K/cumm Hgb 10.3(L) 11.9 - 15.5 g/dL [facility] Hct 30.0(L) 35.6 - 45.5 % [facility] Plt 93(L) 150 - 400 K/cumm [facility] MPV 11.5 9.1 - 12.3 fL [facility] RBC 2.82(L) 3.90 - 5.20 M/cumm [facility] MCV 106.4(H) 81.3 - 96.4 fL [facility] MCH 36.5(H) 27.1 - 33.3 pg [facility] MCHC 34.3 32.3 - 35.7 g/dL [facility] RDW CV 14.5 11.1 - 14.9 % [facility] RDW SD 55.4(H) 35.7 - 48.1 fL [facility] NRBC abs 0.00 0.00 - 0.01 K/cumm [facility] Blood 06/11/2024 5:14 AM CDT 06/11/2024 6:24 AM CDT us Martha Butterfield MD LAB BLOOD ORDERABLES F inal Result Performing Organization Address City/[facility]/ZIP Co de Phone Number [facility] Department [place] [address] * (ABNORMAL) Renal function panel (06/11/2024 5:14 AM CDT) Pathologist [facility] Sodium 141 135 - 145 mmol/L Potassium, pl 4.6 3.3 - 4.9 mmol/L [facility] Chloride 109 97 - 110 mmol/L [facility] CO2 23 22 - 32 mmol/L [facility] Anion gap 9 2 - 15 mmol/L [facility] BUN 29(H) 6 - 25 mg/dL [facility] Creatinine 2.24(H) 0.60 - 1.10 mg/dL [facility] Glucose 133 70 - 199 mg/dL [facility] Comment: Interpretive Data Fasting glucose >/= 126 [...] 2022. Calcium 8.6 8.5 - 10.3 mg/dL [facility] Phosphorus, pl 3.8 2.3 - 4.5 mg/dL [facility] Albumin 3.4(L) 3.5 - 5.0 g/dL [facility] Blood 06/11/2024 5:14 AM CDT 06/11/2024 5:51 AM CDT us Patricia Davidson MD PhD LAB BLOOD ORDERABLES Final Result [facility] Department [place] [address] * Potassium, whole blood (06/10/2024 10:18 PM CDT) Pathologist [facility] Potassium, bld 4.7 3.3 - 4.9 mmol/L Blood 06/10/2024 10:1 8 PM CDT 06/10/2024 11:20 PM CDT us Martha Butterfield MD LAB BLOOD ORDERABLES F inal Result Performing Organization Address [facility] Co de Phone Number [facility] [place] [address] * POCT glucose (06/10/2024 1:15 PM CDT) Glucose, POC 145 70 - 199 mg/dL Blood 06/10/2024 1:15 PM CDT 06/10/2024 1:15 PM CDT Martha Butterfield MD LAB POCT ORDERABLES - DEVICE Final Result Performing Organization Address [facility] Co de Phone Number [facility] [address] * Potassium (06/10/2024 10:34 AM CDT) [facility] Potassium, pl 4.7 3.3 - 4.9 mmol/L Blood 06/10/2024 10:3 4 AM CDT 06/10/2024 11:28 AM CDT Martha Butterfield MD LAB BLOOD ORDERABLES F inal Result Performing Organization Address [facility] Co de Phone Number [facility] [place] [address] * (ABNORMAL) Hepatic function panel (06/10/2024 10:34 AM CDT) Bilirubin, total 0.7 0.1 - 1.2 mg/dL Bilirubin, direct 0.3 0.1 - 0.3 mg/dL [facility] Protein, pl 6.3(L) 6.5 - 8.5 g/dL [facility] Albumin 3.7 3.5 - 5.0 g/dL [facility] Alk phos 253(H) 40 - 130 Units/L [facility] ALT 23 7 - 45 Units/L [facility] AST 25 10 - 45 Units/L [facility] Blood 06/10/2024 10:3 4 AM CDT 06/10/2024 11:28 AM CDT Martha Butterfield MD LAB BLOOD ORDERABLES F inal Result Performing Organization Address City/[facility] Co de Phone Number [facility] [place] [address] * POCT glucose (06/10/2024 9:48 AM CDT) Glucose, POC 157 70 - 199 mg/dL Blood 06/10/2024 9:48 AM CDT 06/10/2024 9:48 AM CDT Martha Butterfield MD LAB POCT ORDERABLES - DEVICE Final Result Performing Organization Address [facility] Co de Phone Number [facility] [place] [address] * POCT glucose (06/10/2024 6:35 AM CDT) Glucose, POC 137 70 - 199 mg/dL Blood 06/10/2024 6:35 AM CDT 06/10/2024 6:35 AM CDT Martha Butterfield MD LAB POCT ORDERABLES - DEVICE Final Result Performing Organization Address [facility] Co de Phone Number [facility] [place] [address] * (ABNORMAL) Potassium, whole blood (06/10/2024 4:17 AM CDT) Potassium, bld 5.2(H) 3.3 - 4.9 mmol/L Blood 06/10/2024 4:17 AM CDT 06/10/2024 4:24 AM CDT us Lyndsey Ramos MD LAB BLOOD ORDERABLES Aniya l Result Performing Organization Address [facility] Co de Phone Number [facility] Department [place] [address] * (ABNORMAL) eGFR (06/10/2024 4:14 AM CDT) [...] BLOOD ORDERABLES Final Result Performing Organization Address [facility]/ZIP Co de Phone Number [facility] Department [place] [address] * Tacrolimus level trough (06/10/2024 4:14 AM CDT) Tacrolimus trough 9.6 ng/mL Comment: Interpretive Data Testing performed by liquid chromatography-tandem mass spectrometry. Therapeutic concentrations vary depending on type of transplanted organ and time elapsed since transplant. Typical trough concentrations range from 5-15 ng/mL. This test was developed and its performance characteristics determined by the [facility] consistent with CLIA requirements. This test has not been cleared or approved by the [place] Food and Drug administration. Current interpretive data last reviewed 2019. Blood 06/10/2024 4:14 AM CDT 06/10/2024 4:32 AM CDT Patricia Davidson MD PhD LAB BLOOD ORDERABLES Final Result [facility] Department [place] [address] * (ABNORMAL) Renal function panel (06/10/2024 4:14 AM CDT) Sodium 142 135 - 145 mmol/L Potassium, pl 5.6(H) 3.3 - 4.9 mmol/L [facility] Comment:Hemolyzed; Potassium value may be falsely elevated by as much as 0.3-0.5 mmol/L. Suggest redraw and reanalysis. Chloride 112(H) 97 - 110 mmol/L [facility] CO2 24 22 - 32 mmol/L [facility] Anion gap 6 2 - 15 mmol/L [facility] BUN 29(H) 6 - 25 mg/dL [facility] Creatinine 2.11(H) 0.60 - 1.10 mg/dL [facility] Glucose 158 70 - 199 mg/dL [facility] Comment: Interpretive Data Fasting glucose >/= 126 [...] 2022. Calcium 9.1 8.5 - 10.3 mg/dL [facility] Phosphorus, pl 3.7 2.3 - 4.5 mg/dL [facility] Albumin 3.6 3.5 - 5.0 g/dL [facility] Blood 06/10/2024 4:14 AM CDT 06/10/2024 4:32 AM CDT Patricia Davidson MD PhD LAB BLOOD ORDERABLES Final Result Performing Organization Address [facility] Co de Phone Number [facility] [place] [address] * (ABNORMAL) POCT glucose (06/10/2024 2:27 AM CDT) Glucose, POC 210(H) 70 - 199 mg/dL Blood 06/10/2024 2:27 AM CDT 06/10/2024 2:27 AM CDT Martha Butterfield MD LAB POCT ORDERABLES - DEVICE Final Result Performing Organization Address [facility] Co de Phone Number [facility] [place] [address] * (ABNORMAL) POCT glucose (06/10/2024 1:25 AM CDT) Glucose, POC 277(H) 70 - 199 mg/dL Blood 06/10/2024 1:25 AM CDT 06/10/2024 1:25 AM CDT Martha Butetrfield MD LAB POCT ORDERABLES - DEVICE Final Result Performing Organization Address [facility] Co de Phone Number [facility] [place] [address] * POCT glucose (06/10/2024 12:24 AM CDT) Glucose, POC 138 70 - 199 mg/dL Blood 06/10/2024 12:2 4 AM CDT 06/10/2024 12:24 AM CDT us Martha Butterfield MD LAB POCT ORDERABLES - DEVICE Final Result [facility] Department [place] [address] * ECG 12 lead (06/10/2024 12:20 AM CDT) Ventricular Rate EKG/Min 65 BPM [facility] Atrial Rate [address] [facility] [place]-Interval (MSEC) 160 ms [facility] QRS-Interval (MSEC) 72 ms [facility] QT-Interval (MSEC) [address] [facility] QTc [address] [facility] P [place] -[address] [facility] R [place] -[address] [facility] T [place] [address] [facility] [...] Septal leads Confirmed by BRODIE LEIGH M.D ([id number]) on 06/11/2024 10:14:[address] [facility] 06/10/2024 12:2 0 AM CDT 06/11/2024 10:14 AM CDT us Martha Butterfield MD ECG ORDERABLES Final Result Performing Organization Address City/[facility]/ZIP Co de Phone Number [facility] * (ABNORMAL) Potassium, whole blood (06/09/2024 11:26 PM CDT) Potassium, bld 5.7(H) 3.3 - 4.9 mmol/L Blood 06/09/2024 11:2 6 PM CDT 06/09/2024 11:37 PM CDT Martha Butterfield MD LAB BLOOD ORDERABLES F inal Result Performing Organization Address [facility] Co de Phone Number [facility] [place] [address] * (ABNORMAL) eGFR (06/09/2024 6:33 PM CDT) [...] ORDERABLES F inal Result Performing Organization Address [facility]/ZIP Co de Phone Number [facility] Department [place] [address] * (ABNORMAL) Renal function panel (06/09/2024 6:33 PM CDT) Sodium 141 135 - 145 mmol/L Potassium, pl 5.5(H) 3.3 - 4.9 mmol/L [facility] Comment:Hemolyzed; Potassium value may be falsely elevated by as much as 0.3-0.5 mmol/L. Suggest redraw and reanalysis. Chloride 112(H) 97 - 110 mmol/L [facility] CO2 17(L) 22 - 32 mmol/L [facility] Anion gap 12 2 - 15 mmol/L [facility] BUN 32(H) 6 - 25 mg/dL [facility] Creatinine 2.08(H) 0.60 - 1.10 mg/dL [facility] Glucose 111 70 - 199 mg/dL [facility] Comment: Interpretive Data Fasting glucose >/= 126 [...] 2022. Calcium 8.7 8.5 - 10.3 mg/dL [facility] Phosphorus, pl 4.0 2.3 - 4.5 mg/dL [facility] Albumin 3.1(L) 3.5 - 5.0 g/dL [facility] Blood 06/09/2024 6:33 PM CDT 06/09/2024 6:48 PM CDT Martha Butterfield MD LAB BLOOD ORDERABLES F inal Result [facility] Department [place] [address] * (ABNORMAL) eGFR (06/09/2024 5:12 AM CDT) [...] MD PhD LAB BLOOD ORDERABLES Final Result [facility] Department [place] [address] * Differential, auto (06/09/2024 5:12 AM CDT) Neutrophil abs 2.5 1.5 - 6.5 K/cumm Imm gran abs 0.0 0.0 - 0.1 K/cumm [facility] Lymphocyte abs 1.0 0.8 - 3.3 K/cumm [facility] Monocyte abs 0.4 0.2 - 0.8 K/cumm [facility] Eosinophil abs 0.2 0.0 - 0.5 K/cumm [facility] Basophil abs 0.0 0.0 - 0.1 K/cumm [facility] Neutrophil pct 61.7 % [facility] Comment: Interpretive Data Percent cell count reference ranges are not reported, since discordance with absolute values may lead to misinterpretation of CBC data. Current Interpretive Data was last revised on 2017. Imm gran pct 0.2 % [facility] Comment: Interpretive Data Percent cell count reference ranges are not reported, since discordance with absolute values may lead to misinterpretation of CBC data. Current Interpretive Data was last revised on 2017. Lymphocyte pct 25.2 % [facility] Comment: Interpretive Data Percent cell count reference ranges are not reported, since discordance with absolute values may lead to misinterpretation of CBC data. Current Interpretive Data was last revised on 2017. Monocyte pct 8.8 % [facility] Comment: Interpretive Data Percent cell count reference ranges are not reported, since discordance with absolute values may lead to misinterpretation of CBC data. Current Interpretive Data was last revised on 2017. Eosinophil pct 3.9 % [facility] Comment: Interpretive Data Percent cell count reference ranges are not reported, since discordance with absolute values may lead to misinterpretation of CBC data. Current Interpretive Data was last revised on 2017. Basophil pct 0.2 % [facility] Comment: Interpretive Data Percent cell count reference ranges are not reported, since discordance with absolute values may lead to misinterpretation of CBC data. Current Interpretive Data was last revised on 2017. Blood 06/09/2024 5:12 AM CDT 06/09/2024 5:43 AM CDT Martha Butterfield MD LAB BLOOD ORDERABLES F inal Result [facility] Department [place] [address] * Tacrolimus level trough (06/09/2024 5:12 AM CDT) Tacrolimus trough 7.5 ng/mL Comment: Interpretive Data Testing performed by liquid chromatography-tandem mass spectrometry. Therapeutic concentrations vary depending on type of transplanted organ and time elapsed since transplant. Typical trough concentrations range from 5-15 ng/mL. This test was developed and its performance characteristics determined by the [facility] consistent with CLIA requirements. This test has not been cleared or approved by the [place] Food and Drug administration. Current interpretive data last reviewed 2019. Blood 06/09/2024 5:12 AM CDT 06/09/2024 5:43 AM CDT us Patricia Davidson MD PhD LAB BLOOD ORDERABLES Final Result [facility] [place] [address] * (ABNORMAL) CBC with auto differential (06/09/2024 5:12 AM CDT) WBC 4.1 3.8 - 9.9 K/cumm Hgb 10.9(L) 11.9 - 15.5 g/dL [facility] Hct 32.1(L) 35.6 - 45.5 % [facility] Plt 104(L) 150 - 400 K/cumm [facility] MPV 11.5 9.1 - 12.3 fL [facility] RBC 3.05(L) 3.90 - 5.20 M/cumm [facility] MCV 105.2(H) 81.3 - 96.4 fL [facility] MCH 35.7(H) 27.1 - 33.3 pg [facility] MCHC 34.0 32.3 - 35.7 g/dL [facility] RDW CV 14.7 11.1 - 14.9 % [facility] RDW SD 55.7(H) 35.7 - 48.1 fL [facility] NRBC abs 0.00 0.00 - 0.01 K/cumm [facility] Blood 06/09/2024 5:12 AM CDT 06/09/2024 5:43 AM CDT us Martha Butterfield MD LAB BLOOD ORDERABLES F inal Result [facility] [place] [address] * (ABNORMAL) Renal function panel (06/09/2024 5:12 AM CDT) Sodium 144 135 - 145 mmol/L Potassium, pl 5.1(H) 3.3 - 4.9 mmol/L [facility] Chloride 111(H) 97 - 110 mmol/L [facility] CO2 23 22 - 32 mmol/L [facility] Anion gap 10 2 - 15 mmol/L [facility] BUN 33(H) 6 - 25 mg/dL [facility] Creatinine 2.08(H) 0.60 - 1.10 mg/dL [facility] Glucose 104 70 - 199 mg/dL [facility] Comment: Interpretive Data Fasting glucose >/= 126 [...] 2022. Calcium 8.7 8.5 - 10.3 mg/dL [facility] Phosphorus, pl 4.4 2.3 - 4.5 mg/dL [facility] Albumin 3.5 3.5 - 5.0 g/dL [facility] Blood 06/09/2024 5:12 AM CDT 06/09/2024 5:43 AM CDT us Patricia Davidson MD PhD LAB BLOOD ORDERABLES Final Result [facility] Department [place] [address] * (ABNORMAL) Potassium, whole blood (06/08/2024 8:37 AM CDT) [facility] Potassium, bld 5.0(H) 3.3 - 4.9 mmol/L Blood 06/08/2024 8:37 AM CDT 06/08/2024 9:17 AM CDT us Martha Butterfield MD LAB BLOOD ORDERABLES F inal Result [facility] Department [place] [address] * (ABNORMAL) eGFR (06/08/2024 5:40 AM CDT) [...] PhD LAB BLOOD ORDERABLES Final Result [facility] [place] [address] * Tacrolimus level trough (06/08/2024 5:40 AM CDT) Tacrolimus trough 6.6 ng/mL Comment: Interpretive Data Testing performed by liquid chromatography-tandem mass spectrometry. Therapeutic concentrations vary depending on type of transplanted organ and time elapsed since transplant. Typical trough concentrations range from 5-15 ng/mL. This test was developed and its performance characteristics determined by the [facility] consistent with CLIA requirements. This test has not been cleared or approved by the US Food and Drug administration. Current interpretive data last reviewed 2019. Blood 06/08/2024 5:40 AM CDT 06/08/2024 6:19 AM CDT Patricia Davidson MD PhD LAB BLOOD ORDERABLES Final Result [facility] [place] [address] * (ABNORMAL) Renal function panel (06/08/2024 5:40 AM CDT) Pathologist [facility] Sodium 144 135 - 145 mmol/L Potassium, pl 5.1(H) 3.3 - 4.9 mmol/L [facility] Chloride 114(H) 97 - 110 mmol/L [facility] CO2 23 22 - 32 mmol/L [facility] Anion gap 7 2 - 15 mmol/L [facility] BUN 31(H) 6 - 25 mg/dL [facility] Creatinine 2.07(H) 0.60 - 1.10 mg/dL [facility] Glucose 100 70 - 199 mg/dL [facility] Comment: Interpretive Data Fasting glucose >/= 126 [...] 2022. Calcium 8.7 8.5 - 10.3 mg/dL [facility] Phosphorus, pl 4.5 2.3 - 4.5 mg/dL [facility] Albumin 3.3(L) 3.5 - 5.0 g/dL [facility] Blood 06/08/2024 5:40 AM CDT 06/08/2024 6:19 AM CDT Patricia Davidson MD PhD LAB BLOOD ORDERABLES Final Result Performing Organization Address City/[facility]/ZIP Co de Phone Number [facility] Department [place] [address] * (ABNORMAL) eGFR (06/07/2024 5:17 AM CDT) [...] BLOOD ORDERABLES Final Result Performing Organization Address City/[facility]/ZIP Co de Phone Number [facility] Department [place] [address] * Differential, auto (06/07/2024 5:17 AM CDT) Neutrophil abs 2.9 1.5 - 6.5 K/cumm Imm gran abs 0.0 0.0 - 0.1 K/cumm [facility] Lymphocyte abs 1.1 0.8 - 3.3 K/cumm [facility] Monocyte abs 0.3 0.2 - 0.8 K/cumm [facility] Eosinophil abs 0.2 0.0 - 0.5 K/cumm [facility] Basophil abs 0.0 0.0 - 0.1 K/cumm [facility] Neutrophil pct 64.2 % [facility] Comment: Interpretive Data Percent cell count reference ranges are not reported, since discordance with absolute values may lead to misinterpretation of CBC data. Current Interpretive Data was last revised on 2017. Imm gran pct 0.2 % [facility] Comment: Interpretive Data Percent cell count reference ranges are not reported, since discordance with absolute values may lead to misinterpretation of CBC data. Current Interpretive Data was last revised on 2017. Lymphocyte pct 24.2 % [facility] Comment: Interpretive Data Percent cell count reference ranges are not reported, since discordance with absolute values may lead to misinterpretation of CBC data. Current Interpretive Data was last revised on 2017. Monocyte pct 7.2 % [facility] Comment: Interpretive Data Percent cell count reference ranges are not reported, since discordance with absolute values may lead to misinterpretation of CBC data. Current Interpretive Data was last revised on 2017. Eosinophil pct 4.0 % [facility] Comment: Interpretive Data Percent cell count reference ranges are not reported, since discordance with absolute values may lead to misinterpretation of CBC data. Current Interpretive Data was last revised on 2017. Basophil pct 0.2 % [facility] Comment: Interpretive Data Percent cell count reference ranges are not reported, since discordance with absolute values may lead to misinterpretation of CBC data. Current Interpretive Data was last revised on 2017. Blood 06/07/2024 5:17 AM CDT 06/07/2024 6:14 AM CDT us Martha Butterfield MD LAB BLOOD ORDERABLES F inal Result [facility] Department [place] [address] * Tacrolimus level trough (06/07/2024 5:17 AM CDT) Tacrolimus trough 6.2 ng/mL Comment: Interpretive Data Testing performed by liquid chromatography-tandem mass spectrometry. Therapeutic concentrations vary depending on type of transplanted organ and time elapsed since transplant. Typical trough concentrations range from 5-15 ng/mL. This test was developed and its performance characteristics determined by the [facility] consistent with CLIA requirements. This test has not been cleared or approved by the US Food and Drug administration. Current interpretive data last reviewed 2019. Blood 06/07/2024 5:17 AM CDT 06/07/2024 6:14 AM CDT us Patricia Davidson MD PhD LAB BLOOD ORDERABLES Final Result [facility] Department [place] [address] * (ABNORMAL) CBC with auto differential (06/07/2024 5:17 AM CDT) [facility] WBC 4.5 3.8 - 9.9 K/cumm Hgb 10.7(L) 11.9 - 15.5 g/dL [facility] Hct 31.3(L) 35.6 - 45.5 % [facility] Plt 100(L) 150 - 400 K/cumm [facility] MPV 11.8 9.1 - 12.3 fL [facility] RBC 2.96(L) 3.90 - 5.20 M/cumm [facility] MCV 105.7(H) 81.3 - 96.4 fL [facility] MCH 36.1(H) 27.1 - 33.3 pg [facility] MCHC 34.2 32.3 - 35.7 g/dL [facility] RDW CV 14.2 11.1 - 14.9 % [facility] RDW SD 53.7(H) 35.7 - 48.1 fL [facility] NRBC abs 0.00 0.00 - 0.01 K/cumm [facility] Blood 06/07/2024 5:17 AM CDT 06/07/2024 6:14 AM CDT us Martha Butterfield MD LAB BLOOD ORDERABLES F inal Result [facility] Department [place] [address] * (ABNORMAL) Renal function panel (06/07/2024 5:17 AM CDT) Sodium 137 135 - 145 mmol/L Potassium, pl 4.9 3.3 - 4.9 mmol/L [facility] Chloride 108 97 - 110 mmol/L [facility] CO2 21(L) 22 - 32 mmol/L [facility] Anion gap 8 2 - 15 mmol/L [facility] BUN 28(H) 6 - 25 mg/dL [facility] Creatinine 1.92(H) 0.60 - 1.10 mg/dL [facility] Glucose 125 70 - 199 mg/dL [facility] Comment: Interpretive Data Fasting glucose >/= 126 [...] 2022. Calcium 8.1(L) 8.5 - 10.3 mg/dL [facility] Phosphorus, pl 3.8 2.3 - 4.5 mg/dL [facility] Albumin 3.4(L) 3.5 - 5.0 g/dL [facility] Blood 06/07/2024 5:17 AM CDT 06/07/2024 6:13 AM CDT us Patricia Davidson MD PhD LAB BLOOD ORDERABLES Final Result [facility] Department [place] [address] * Potassium, whole blood (06/06/2024 11:29 AM CDT) Potassium, bld 4.9 3.3 - 4.9 mmol/L Blood 06/06/2024 11:2 9 AM CDT 06/06/2024 12:20 PM CDT us Martha Butterfield MD LAB BLOOD ORDERABLES F inal Result [facility] [place] [address] * (ABNORMAL) eGFR (06/06/2024 4:28 AM CDT) Pathologist [facility] [...] MD PhD LAB BLOOD ORDERABLES Final Result [facility] Department [place] [address] * Tacrolimus level trough (06/06/2024 4:28 AM CDT) Tacrolimus trough 5.9 ng/mL Comment: Interpretive Data Testing performed by liquid chromatography-tandem mass spectrometry. Therapeutic concentrations vary depending on type of transplanted organ and time elapsed since transplant. Typical trough concentrations range from 5-15 ng/mL. This test was developed and its performance characteristics determined by the [facility] consistent with CLIA requirements. This test has not been cleared or approved by the US Food and Drug administration. Current interpretive data last reviewed 2019. Blood 06/06/2024 4:28 AM CDT 06/06/2024 5:44 AM CDT Patricia Davidson MD PhD LAB BLOOD ORDERABLES Final Result [facility] Department [place] [address] * (ABNORMAL) Renal function panel (06/06/2024 4:28 AM CDT) Pathologist [facility] Sodium 143 135 - 145 mmol/L Potassium, pl 5.3(H) 3.3 - 4.9 mmol/L [facility] Chloride 113(H) 97 - 110 mmol/L [facility] CO2 23 22 - 32 mmol/L [facility] Anion gap 7 2 - 15 mmol/L [facility] BUN 30(H) 6 - 25 mg/dL [facility] Creatinine 1.99(H) 0.60 - 1.10 mg/dL [facility] Glucose 86 70 - 199 mg/dL [facility] Comment: Interpretive Data Fasting glucose >/= 126 [...] 2022. Calcium 8.5 8.5 - 10.3 mg/dL [facility] Phosphorus, pl 4.1 2.3 - 4.5 mg/dL [facility] Albumin 3.1(L) 3.5 - 5.0 g/dL [facility] Blood 06/06/2024 4:28 AM CDT 06/06/2024 5:36 AM CDT us Patricia Davidson MD PhD LAB BLOOD ORDERABLES Final Result Performing Organization Address City/State/[facility] Co de Phone Number [facility] Department [place] [address] * (ABNORMAL) eGFR (06/05/2024 5:49 AM CDT) [...] MD PhD LAB BLOOD ORDERABLES Final Result [facility] [place] [address] * Differential, auto (06/05/2024 5:49 AM CDT) Neutrophil abs 2.5 1.5 - 6.5 K/cumm Imm gran abs 0.0 0.0 - 0.1 K/cumm [facility] Lymphocyte abs 1.0 0.8 - 3.3 K/cumm [facility] Monocyte abs 0.4 0.2 - 0.8 K/cumm [facility] Eosinophil abs 0.1 0.0 - 0.5 K/cumm [facility] Basophil abs 0.0 0.0 - 0.1 K/cumm [facility] Neutrophil pct 62.5 % [facility] Comment: Interpretive Data Percent cell count reference ranges are not reported, since discordance with absolute values may lead to misinterpretation of CBC data. Current Interpretive Data was last revised on 2017. Imm gran pct 0.3 % [facility] Comment: Interpretive Data Percent cell count reference ranges are not reported, since discordance with absolute values may lead to misinterpretation of CBC data. Current Interpretive Data was last revised on 2017. Lymphocyte pct 24.3 % [facility] Comment: Interpretive Data Percent cell count reference ranges are not reported, since discordance with absolute values may lead to misinterpretation of CBC data. Current Interpretive Data was last revised on 2017. Monocyte pct 9.3 % [facility] Comment: Interpretive Data Percent cell count reference ranges are not reported, since discordance with absolute values may lead to misinterpretation of CBC data. Current Interpretive Data was last revised on 2017. Eosinophil pct 3.3 % [facility] Comment: Interpretive Data Percent cell count reference ranges are not reported, since discordance with absolute values may lead to misinterpretation of CBC data. Current Interpretive Data was last revised on 2017. Basophil pct 0.3 % [facility] Comment: Interpretive Data Percent cell count reference ranges are not reported, since discordance with absolute values may lead to misinterpretation of CBC data. Current Interpretive Data was last revised on 2017. Blood 06/05/2024 5:49 AM CDT 06/05/2024 6:48 AM CDT Patricia Davidson MD PhD LAB BLOOD ORDERABLES Final Result Performing Organization Address [facility] de Phone Number [facility] [place] [address] * Tacrolimus level trough (06/05/2024 5:49 AM CDT) [facility] Tacrolimus trough 5.9 ng/mL Comment: Interpretive Data Testing performed by liquid chromatography-tandem mass spectrometry. Therapeutic concentrations vary depending on type of transplanted organ and time elapsed since transplant. Typical trough concentrations range from 5-15 ng/mL. This test was developed and its performance characteristics determined by the [facility] consistent with CLIA requirements. This test has not been cleared or approved by the US Food and Drug administration. Current interpretive data last reviewed 2019. Blood 06/05/2024 5:49 AM CDT 06/05/2024 6:48 AM CDT Patricia Davidson MD PhD LAB BLOOD ORDERABLES Final Result Performing Organization Address [facility] [place] [address] * (ABNORMAL) CBC with auto differential (06/05/2024 5:49 AM CDT) [facility] WBC 4.0 3.8 - 9.9 K/cumm Hgb 10.9(L) 11.9 - 15.5 g/dL [facility] Hct 31.7(L) 35.6 - 45.5 % [facility] Plt 102(L) 150 - 400 K/cumm [facility] MPV 11.6 9.1 - 12.3 fL [facility] RBC 3.05(L) 3.90 - 5.20 M/cumm [facility] MCV 103.9(H) 81.3 - 96.4 fL [facility] MCH 35.7(H) 27.1 - 33.3 pg [facility] MCHC 34.4 32.3 - 35.7 g/dL [facility] RDW CV 14.0 11.1 - 14.9 % [facility] RDW SD 52.3(H) 35.7 - 48.1 fL [facility] NRBC abs 0.00 0.00 - 0.01 K/cumm [facility] Blood 06/05/2024 5:49 AM CDT 06/05/2024 6:48 AM CDT us Patricia Davidson MD PhD LAB BLOOD ORDERABLES Final Result [facility] Department [place] [address] * (ABNORMAL) Renal function panel (06/05/2024 5:49 AM CDT) Sodium 140 135 - 145 mmol/L Potassium, pl 4.6 3.3 - 4.9 mmol/L [facility] Chloride 109 97 - 110 mmol/L [facility] CO2 22 22 - 32 mmol/L [facility] Anion gap 9 2 - 15 mmol/L [facility] BUN 29(H) 6 - 25 mg/dL [facility] Creatinine 1.99(H) 0.60 - 1.10 mg/dL [facility] Glucose 98 70 - 199 mg/dL [facility] Comment: Interpretive Data Fasting glucose >/= 126 [...] 2022. Calcium 8.6 8.5 - 10.3 mg/dL [facility] Phosphorus, pl 4.3 2.3 - 4.5 mg/dL [facility] Albumin 3.5 3.5 - 5.0 g/dL [facility] Blood 06/05/2024 5:49 AM CDT 06/05/2024 6:48 AM CDT us Patricia Davidson MD PhD LAB BLOOD ORDERABLES Final Result Performing Organization Address City/[facility]/ZIP Co de Phone Number [facility] Department [place] [address] * ECG 12 lead (06/04/2024 5:41 AM CDT) Pathologist [facility] Ventricular Rate EKG/Min 67 BPM [facility] Atrial Rate [address] [facility] [place]-Interval (MSEC) 202 ms [facility] QRS-Interval (MSEC) 74 ms [facility] QT-Interval (MSEC) [address] [facility] QTc [address] [facility] P [place] [address] [facility] R [place] -[address] [facility] T [place] [address] 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 06/04/2024 5:41 AM CDT 06/05/2024 5:57 AM CDT Pineda Barrios MD ECG ORDERABLES Final Result [facility] * (ABNORMAL) eGFR (06/04/2024 5:10 AM CDT) [...] MD PhD LAB BLOOD ORDERABLES Final Result [facility] [place] [address] * Differential, auto (06/04/2024 5:10 AM CDT) Neutrophil abs 3.1 1.5 - 6.5 K/cumm Imm gran abs 0.0 0.0 - 0.1 K/cumm [facility] Lymphocyte abs 1.3 0.8 - 3.3 K/cumm [facility] Monocyte abs 0.5 0.2 - 0.8 K/cumm [facility] Eosinophil abs 0.2 0.0 - 0.5 K/cumm [facility] Basophil abs 0.0 0.0 - 0.1 K/cumm [facility] Neutrophil pct 61.7 % [facility] Comment: Interpretive Data Percent cell count reference ranges are not reported, since discordance with absolute values may lead to misinterpretation of CBC data. Current Interpretive Data was last revised on 2017. Imm gran pct 0.4 % [facility] Comment: Interpretive Data Percent cell count reference ranges are not reported, since discordance with absolute values may lead to misinterpretation of CBC data. Current Interpretive Data was last revised on 2017. Lymphocyte pct 25.2 % [facility] Comment: Interpretive Data Percent cell count reference ranges are not reported, since discordance with absolute values may lead to misinterpretation of CBC data. Current Interpretive Data was last revised on 2017. Monocyte pct 9.1 % [facility] Comment: Interpretive Data Percent cell count reference ranges are not reported, since discordance with absolute values may lead to misinterpretation of CBC data. Current Interpretive Data was last revised on 2017. Eosinophil pct 3.0 % [facility] Comment: Interpretive Data Percent cell count reference ranges are not reported, since discordance with absolute values may lead to misinterpretation of CBC data. Current Interpretive Data was last revised on 2017. Basophil pct 0.6 % [facility] Comment: Interpretive Data Percent cell count reference ranges are not reported, since discordance with absolute values may lead to misinterpretation of CBC data. Current Interpretive Data was last revised on 2017. Blood 06/04/2024 5:10 AM CDT 06/04/2024 6:22 AM CDT Patricia Davidson MD PhD LAB BLOOD ORDERABLES Final Result [facility] [place] [address] * Tacrolimus level trough (06/04/2024 5:10 AM CDT) [facility] Signature Tacrolimus trough 6.1 ng/mL Comment: Interpretive Data Testing performed by liquid chromatography-tandem mass spectrometry. Therapeutic concentrations vary depending on type of transplanted organ and time elapsed since transplant. Typical trough concentrations range from 5-15 ng/mL. This test was developed and its performance characteristics determined by the [facility] consistent with CLIA requirements. This test has not been cleared or approved by the [place] Food and Drug administration. Current interpretive data last reviewed 2019. Blood 06/04/2024 5:10 AM CDT 06/04/2024 6:22 AM CDT us Patricia Faroese Davidson MD PhD LAB BLOOD ORDERABLES Final Result Performing Organization Address [facility] Co de Phone Number [facility] [place] [address] * (ABNORMAL) CBC with auto differential (06/04/2024 5:10 AM CDT) Pathologist [facility] WBC 5.0 3.8 - 9.9 K/cumm Hgb 11.2(L) 11.9 - 15.5 g/dL [facility] Hct 32.3(L) 35.6 - 45.5 % [facility] Plt 102(L) 150 - 400 K/cumm [facility] MPV 11.6 9.1 - 12.3 fL [facility] RBC 3.13(L) 3.90 - 5.20 M/cumm [facility] MCV 103.2(H) 81.3 - 96.4 fL [facility] MCH 35.8(H) 27.1 - 33.3 pg [facility] MCHC 34.7 32.3 - 35.7 g/dL [facility] RDW CV 13.7 11.1 - 14.9 % [facility] RDW SD 51.2(H) 35.7 - 48.1 fL [facility] NRBC abs 0.00 0.00 - 0.01 K/cumm [facility] Blood 06/04/2024 5:10 AM CDT 06/04/2024 6:22 AM CDT Patricia Davidson MD PhD LAB BLOOD ORDERABLES Final Result [facility] [place] [address] * (ABNORMAL) Renal function panel (06/04/2024 5:10 AM CDT) Pathologist [facility] Sodium 144 135 - 145 mmol/L Potassium, pl 4.8 3.3 - 4.9 mmol/L [facility] Chloride 112(H) 97 - 110 mmol/L [facility] CO2 23 22 - 32 mmol/L [facility] Anion gap 9 2 - 15 mmol/L [facility] BUN 25 6 - 25 mg/dL [facility] Creatinine 1.98(H) 0.60 - 1.10 mg/dL [facility] Glucose 81 70 - 199 mg/dL [facility] Comment: Interpretive Data Fasting glucose >/= 126 [...] 2022. Calcium 8.9 8.5 - 10.3 mg/dL [facility] Phosphorus, pl 4.3 2.3 - 4.5 mg/dL [facility] Albumin 3.4(L) 3.5 - 5.0 g/dL [facility] Blood 06/04/2024 5:10 AM CDT 06/04/2024 6:23 AM CDT us Patricia Davidson MD PhD LAB BLOOD ORDERABLES Final Result Performing Organization Address [facility]/State/ZIP Co de Phone Number [facility] [place] [address] * Folate (06/04/2024 12:39 AM CDT) Folic acid See Comment >=5.0 ng/mL Comment: Credited; Hemolyzed Specimen Telephone report made to: Luz Maria Iyer RN on 06/04/2024 08:49:44 CDT by SAUD . Blood 06/04/2024 12:3 9 AM CDT 06/04/2024 1:24 AM CDT us Shea Babcock MD LAB BLOOD ORDERABLE S Final Result Performing Organization Address City/[facility] Co de Phone Number [facility] [place] [address] * Protein / creatinine ratio, urine, random (06/03/2024 6:15 PM CDT) Protein, ur, quant <5.0 mg/dL Comment: Interpretive Data No reference range established. Current interpretive data was last revised 2018. Creatinine Ur 39.1 mg/dL [facility] Comment: Interpretive Data No reference range established. Current interpretive data was last revised 2018. Protein/creatinin e ratio <127.9 0.0 - 180.0 mg/g CR [facility] Urine 06/03/2024 6:15 PM CDT 06/03/2024 7:42 PM CDT [facility] Denise Barrios MD LAB URINE ORDE RABLES Final Result Performing Organization Address [facility] de Phone Number [facility] Department [place] [address] * (ABNORMAL) eGFR (06/03/2024 8:54 AM CDT) [...] MD PhD LAB BLOOD ORDERABLES Final Result [facility] [place] [address] * Differential, auto (06/03/2024 8:54 AM CDT) Neutrophil abs 2.8 1.5 - 6.5 K/cumm Imm gran abs 0.0 0.0 - 0.1 K/cumm [facility] Lymphocyte abs 1.3 0.8 - 3.3 K/cumm [facility] Monocyte abs 0.4 0.2 - 0.8 K/cumm [facility] Eosinophil abs 0.2 0.0 - 0.5 K/cumm [facility] Basophil abs 0.0 0.0 - 0.1 K/cumm [facility] Neutrophil pct 59.1 % [facility] Comment: Interpretive Data Percent cell count reference ranges are not reported, since discordance with absolute values may lead to misinterpretation of CBC data. Current Interpretive Data was last revised on 2017. Imm gran pct 0.4 % [facility] Comment: Interpretive Data Percent cell count reference ranges are not reported, since discordance with absolute values may lead to misinterpretation of CBC data. Current Interpretive Data was last revised on 2017. Lymphocyte pct 27.4 % [facility] Comment: Interpretive Data Percent cell count reference ranges are not reported, since discordance with absolute values may lead to misinterpretation of CBC data. Current Interpretive Data was last revised on 2017. Monocyte pct 9.1 % [facility] Comment: Interpretive Data Percent cell count reference ranges are not reported, since discordance with absolute values may lead to misinterpretation of CBC data. Current Interpretive Data was last revised on 2017. Eosinophil pct 3.8 % [facility] Comment: Interpretive Data Percent cell count reference ranges are not reported, since discordance with absolute values may lead to misinterpretation of CBC data. Current Interpretive Data was last revised on 2017. Basophil pct 0.2 % [facility] Comment: Interpretive Data Percent cell count reference ranges are not reported, since discordance with absolute values may lead to misinterpretation of CBC data. Current Interpretive Data was last revised on 2017. Blood 06/03/2024 8:5 4 AM CDT 06/03/2024 9:23 AM CDT Patricia Davidson MD PhD LAB BLOOD ORDERABLES Final Result Performing Organization Address [facility] Co de Phone Number [facility] [place] [address] * Tacrolimus level trough (06/03/2024 8:54 AM CDT) Pathologist [facility] Tacrolimus trough 4.9 ng/mL Comment: Interpretive Data Testing performed by liquid chromatography-tandem mass spectrometry. Therapeutic concentrations vary depending on type of transplanted organ and time elapsed since transplant. Typical trough concentrations range from 5-15 ng/mL. This test was developed and its performance characteristics determined by the [facility] consistent with CLIA requirements. This test has not been cleared or approved by the US Food and Drug administration. Current interpretive data last reviewed 2019. Blood 06/03/2024 8:54 AM CDT 06/03/2024 9:22 AM CDT Patricia Davidson MD PhD LAB BLOOD ORDERABLES Final Result Performing Organization Address City/[facility] Co de Phone Number [facility] [place] [address] * (ABNORMAL) CBC with auto differential (06/03/2024 8:54 AM CDT) WBC 4.7 3.8 - 9.9 K/cumm Hgb 11.6(L) 11.9 - 15.5 g/dL [facility] Hct 32.6(L) 35.6 - 45.5 % [facility] Plt 121(L) 150 - 400 K/cumm [facility] MPV 11.0 9.1 - 12.3 fL [facility] RBC 3.19(L) 3.90 - 5.20 M/cumm [facility] MCV 102.2(H) 81.3 - 96.4 fL [facility] MCH 36.4(H) 27.1 - 33.3 pg [facility] MCHC 35.6 32.3 - 35.7 g/dL [facility] RDW CV 13.5 11.1 - 14.9 % [facility] RDW SD 49.6(H) 35.7 - 48.1 fL [facility] NRBC abs 0.00 0.00 - 0.01 K/cumm [facility] Blood 06/03/2024 8:54 AM CDT 06/03/2024 9:23 AM CDT us Patricia Davidson MD PhD LAB BLOOD ORDERABLES Final Result [facility] Department of [employer] [place], [place] [id number] * CRP (acute phase) (06/03/2024 8:54 AM CDT) Pathologist [facility] CRP 6.5 <=10.0 mg/L Blood 06/03/2024 8:54 AM CDT 06/03/2024 9:25 AM CDT us Pineda Barrios MD LAB BLOOD ORDE RABLES Final Result [facility] [place] [address] * (ABNORMAL) Renal function panel (06/03/2024 8:54 AM CDT) Sodium 143 135 - 145 mmol/L Potassium, pl 4.6 3.3 - 4.9 mmol/L [facility] Chloride 110 97 - 110 mmol/L [facility] CO2 23 22 - 32 mmol/L [facility] Anion gap 10 2 - 15 mmol/L [facility] BUN 21 6 - 25 mg/dL [facility] Creatinine 1.93(H) 0.60 - 1.10 mg/dL [facility] Glucose 125 70 - 199 mg/dL [facility] Comment: Interpretive Data Fasting glucose >/= 126 [...] 2022. Calcium 9.1 8.5 - 10.3 mg/dL [facility] Phosphorus, pl 3.5 2.3 - 4.5 mg/dL [facility] Albumin 3.5 3.5 - 5.0 g/dL [facility] Blood 06/03/2024 8:54 AM CDT 06/03/2024 9:25 AM CDT us Patricia Davidson MD PhD LAB BLOOD ORDERABLES Final Result [facility] Department [place] [address] * (ABNORMAL) eGFR (06/03/2024 2:22 AM CDT) eGFR 34(L) >=60 mL/min/1. 73 m2 Comment: [...] MD LAB BLOOD ORDE COURTNEY Final Result [facility] Department [place] [address] * Differential, auto (06/03/2024 2:22 AM CDT) Pathologist [facility] Neutrophil abs 2.5 1.5 - 6.5 K/cumm Imm gran abs 0.0 0.0 - 0.1 K/cumm [facility] Lymphocyte abs 1.2 0.8 - 3.3 K/cumm [facility] Monocyte abs 0.4 0.2 - 0.8 K/cumm [facility] Eosinophil abs 0.1 0.0 - 0.5 K/cumm [facility] Basophil abs 0.0 0.0 - 0.1 K/cumm [facility] Neutrophil pct 58.3 % [facility] Comment: Interpretive Data Percent cell count reference ranges are not reported, since discordance with absolute values may lead to misinterpretation of CBC data. Current Interpretive Data was last revised on 2017. Imm gran pct 0.5 % [facility] Comment: Interpretive Data Percent cell count reference ranges are not reported, since discordance with absolute values may lead to misinterpretation of CBC data. Current Interpretive Data was last revised on 2017. Lymphocyte pct 28.7 % [facility] Comment: Interpretive Data Percent cell count reference ranges are not reported, since discordance with absolute values may lead to misinterpretation of CBC data. Current Interpretive Data was last revised on 2017. Monocyte pct 9.2 % [facility] Comment: Interpretive Data Percent cell count reference ranges are not reported, since discordance with absolute values may lead to misinterpretation of CBC data. Current Interpretive Data was last revised on 2017. Eosinophil pct 3.1 % [facility] Comment: Interpretive Data Percent cell count reference ranges are not reported, since discordance with absolute values may lead to misinterpretation of CBC data. Current Interpretive Data was last revised on 2017. Basophil pct 0.2 % [facility] Comment: Interpretive Data Percent cell count reference ranges are not reported, since discordance with absolute values may lead to misinterpretation of CBC data. Current Interpretive Data was last revised on 2017. Blood 06/03/2024 2:22 AM CDT 06/03/2024 2:57 AM CDT us Pineda Barrios MD LAB BLOOD ORDXavier COURTNEY Final Result [facility] Department [place] [address] * (ABNORMAL) Iron profile w/ IBC (06/03/2024 2:22 AM CDT) Iron 104 35 - 145 mcg/dL TIBC 192(L) 250 - 400 mcg/dL [facility] Transferrin saturation 54(H) 20 - 50 % [facility] Blood 06/03/2024 2:22 AM CDT 06/03/2024 2:57 AM CDT us Shea Babcock MD LAB BLOOD ORDERABLE S Final Result [facility] [place] [address] * (ABNORMAL) CBC with auto differential (06/03/2024 2:22 AM CDT) WBC 4.2 3.8 - 9.9 K/cumm Hgb 11.5(L) 11.9 - 15.5 g/dL [facility] Hct 32.9(L) 35.6 - 45.5 % [facility] Plt 120(L) 150 - 400 K/cumm [facility] MPV 11.2 9.1 - 12.3 fL [facility] RBC 3.24(L) 3.90 - 5.20 M/cumm [facility] MCV 101.5(H) 81.3 - 96.4 fL [facility] MCH 35.5(H) 27.1 - 33.3 pg [facility] MCHC 35.0 32.3 - 35.7 g/dL [facility] RDW CV 13.4 11.1 - 14.9 % [facility] RDW SD 49.9(H) 35.7 - 48.1 fL [facility] NRBC abs 0.00 0.00 - 0.01 K/cumm [facility] Blood 06/03/2024 2:22 AM CDT 06/03/2024 2:57 AM CDT Pineda Barrios MD LAB BLOOD ORDXavier VALDEZ Final Result [facility] Department [place] [address] * Tacrolimus level random (06/03/2024 2:22 AM CDT) Tacrolimus random 6.3 ng/mL Comment: Interpretive Data Testing performed by liquid chromatography-tandem mass spectrometry. Therapeutic concentrations vary depending on type of transplanted organ and time elapsed since transplant. Typical trough concentrations range from 5-15 ng/mL. This test was developed and its performance characteristics determined by the [facility] consistent with CLIA requirements. This test has not been cleared or approved by the US Food and Drug administration. Current interpretive data last reviewed 2019. Blood 06/03/2024 2:22 AM CDT 06/03/2024 2:57 AM CDT Pineda Barrios MD LAB BLOOD RICO VALDEZ Final Result Performing Organization Address [facility] Co de Phone Number [facility] [place] [address] * TSH (06/03/2024 2:22 AM CDT) Thyroid Stimulating Hormone 1.91 0.30 - 4.20 mcIUnit/mL Blood 06/03/2024 2:22 AM CDT 06/03/2024 2:57 AM CDT Shea Babcock MD LAB BLOOD ORDERABLE S Final Result Performing Organization Address [facility] de Phone Number [facility] Department [place] [address] * (ABNORMAL) Ferritin (06/03/2024 2:22 AM CDT) Ferritin 213(H) 13 - 150 ng/mL Blood 06/03/2024 2:22 AM CDT 06/03/2024 2:57 AM CDT Shea Babcock MD LAB BLOOD ORDERABLE S Final Result Performing Organization Address [facility] de Phone Number [facility] [place] [address] * Vitamin B12 (06/03/2024 2:22 AM CDT) Vitamin B12 749 230 - 1,250 pg/mL Blood 06/03/2024 2:22 AM CDT 06/03/2024 2:57 AM CDT Shea Babcock MD LAB BLOOD ORDERABLE S Final Result Performing Organization Address City/[facility]/ZIP Co de Phone Number [facility] [place] [address] * (ABNORMAL) Renal function panel (06/03/2024 2:22 AM CDT) Sodium 144 135 - 145 mmol/L Potassium, pl 5.0(H) 3.3 - 4.9 mmol/L [facility] Chloride 111(H) 97 - 110 mmol/L [facility] CO2 25 22 - 32 mmol/L [facility] Anion gap 8 2 - 15 mmol/L [facility] BUN 23 6 - 25 mg/dL [facility] Creatinine 1.86(H) 0.60 - 1.10 mg/dL [facility] Glucose 102 70 - 199 mg/dL [facility] Comment: Interpretive Data Fasting glucose >/= 126 [...] 2022. Calcium 9.2 8.5 - 10.3 mg/dL [facility] Phosphorus, pl 3.1 2.3 - 4.5 mg/dL [facility] Albumin 3.8 3.5 - 5.0 g/dL [facility] Blood 06/03/2024 2:22 AM CDT 06/03/2024 2:57 AM CDT Pineda Barrios MD LAB BLOOD ORDE COURTNEY Final Result [facility] Department [place] [address] * (ABNORMAL) eGFR (06/02/2024 8:43 AM CDT) [facility] eGFR 33(L) >=60 mL/min/1. 73 m2 Comment: [...] data was last reviewed 2021. Blood 06/02/2024 8:4 3 AM CDT 06/02/2024 9:14 AM CDT us Patricia Davidson MD PhD LAB BLOOD ORDERABLES Final Result [facility] [place] [address] * Differential, auto (06/02/2024 8:43 AM CDT) [facility] Neutrophil abs 2.3 1.5 - 6.5 K/cumm Imm gran abs 0.0 0.0 - 0.1 K/cumm [facility] Lymphocyte abs 1.3 0.8 - 3.3 K/cumm [facility] Monocyte abs 0.4 0.2 - 0.8 K/cumm [facility] Eosinophil abs 0.1 0.0 - 0.5 K/cumm [facility] Basophil abs 0.0 0.0 - 0.1 K/cumm [facility] Neutrophil pct 55.6 % [facility] Comment: Interpretive Data Percent cell count reference ranges are not reported, since discordance with absolute values may lead to misinterpretation of CBC data. Current Interpretive Data was last revised on 2017. Imm gran pct 0.2 % [facility] Comment: Interpretive Data Percent cell count reference ranges are not reported, since discordance with absolute values may lead to misinterpretation of CBC data. Current Interpretive Data was last revised on 2017. Lymphocyte pct 30.7 % [facility] Comment: Interpretive Data Percent cell count reference ranges are not reported, since discordance with absolute values may lead to misinterpretation of CBC data. Current Interpretive Data was last revised on 2017. Monocyte pct 10.1 % [facility] Comment: Interpretive Data Percent cell count reference ranges are not reported, since discordance with absolute values may lead to misinterpretation of CBC data. Current Interpretive Data was last revised on 2017. Eosinophil pct 3.2 % [facility] Comment: Interpretive Data Percent cell count reference ranges are not reported, since discordance with absolute values may lead to misinterpretation of CBC data. Current Interpretive Data was last revised on 2017. Basophil pct 0.2 % [facility] Comment: Interpretive Data Percent cell count reference ranges are not reported, since discordance with absolute values may lead to misinterpretation of CBC data. Current Interpretive Data was last revised on 2017. Blood 06/02/2024 8:43 AM CDT 06/02/2024 9:14 AM CDT us Patricia Davidson MD PhD LAB BLOOD ORDERABLES Final Result [facility] Department [place] [address] * Tacrolimus level trough (06/02/2024 8:43 AM CDT) Tacrolimus trough 3.8 ng/mL Comment: Interpretive Data Testing performed by liquid chromatography-tandem mass spectrometry. Therapeutic concentrations vary depending on type of transplanted organ and time elapsed since transplant. Typical trough concentrations range from 5-15 ng/mL. This test was developed and its performance characteristics determined by the [facility] consistent with CLIA requirements. This test has not been cleared or approved by the US Food and Drug administration. Current interpretive data last reviewed 2019. Blood 06/02/2024 8:43 AM CDT 06/02/2024 9:14 AM CDT Patricia Davidson MD PhD LAB BLOOD ORDERABLES Final Result [facility] Department [place] [address] * (ABNORMAL) CBC with auto differential (06/02/2024 8:43 AM CDT) WBC 4.1 3.8 - 9.9 K/cumm Hgb 10.8(L) 11.9 - 15.5 g/dL [facility] Hct 30.5(L) 35.6 - 45.5 % [facility] Plt 105(L) 150 - 400 K/cumm [facility] MPV 11.6 9.1 - 12.3 fL [facility] RBC 3.03(L) 3.90 - 5.20 M/cumm [facility] MCV 100.7(H) 81.3 - 96.4 fL [facility] MCH 35.6(H) 27.1 - 33.3 pg [facility] MCHC 35.4 32.3 - 35.7 g/dL [facility] RDW CV 13.3 11.1 - 14.9 % [facility] RDW SD 48.2(H) 35.7 - 48.1 fL [facility] NRBC abs 0.00 0.00 - 0.01 K/cumm [facility] Blood 06/02/2024 8:43 AM CDT 06/02/2024 9:14 AM CDT Patricia Davidson MD PhD LAB BLOOD ORDERABLES Final Result Performing Organization Address City/[facility]/ZIP Co de Phone Number [facility] Department [place] [address] * (ABNORMAL) Renal function panel (06/02/2024 8:43 AM CDT) Sodium 143 135 - 145 mmol/L Potassium, pl 5.1(H) 3.3 - 4.9 mmol/L [facility] Comment:Hemolyzed; Potassium value may be falsely elevated by as much as 0.3-0.5 mmol/L. Suggest redraw and reanalysis. Chloride 111(H) 97 - 110 mmol/L [facility] CO2 26 22 - 32 mmol/L [facility] Anion gap 6 2 - 15 mmol/L [facility] BUN 22 6 - 25 mg/dL [facility] Creatinine 1.93(H) 0.60 - 1.10 mg/dL [facility] Glucose 108 70 - 199 mg/dL [facility] Comment: Interpretive Data Fasting glucose >/= 126 [...] 2022. Calcium 8.8 8.5 - 10.3 mg/dL [facility] Phosphorus, pl 3.5 2.3 - 4.5 mg/dL [facility] Albumin 3.4(L) 3.5 - 5.0 g/dL [facility] Blood 06/02/2024 8:43 AM CDT 06/02/2024 9:14 AM CDT us Patricia Davidson MD PhD LAB BLOOD ORDERABLES Final Result [facility] Department [place] [address] * Immunoglobulin profile (06/01/2024 9:10 PM CDT) Immunoglobulin G 882 700 - 1,600 mg/dL Immunoglobulin A 213 70 - 400 mg/dL [facility] Immunoglobulin M 92 40 - 230 mg/dL [facility] Blood 06/01/2024 9:10 PM CDT 06/01/2024 10:48 PM CDT Pineda Barrios MD LAB BLOOD RICO VALDEZ Final Result [facility] [place] [address] * Differential, auto (06/01/2024 10:03 AM CDT) Pathologist [facility] Neutrophil abs 3.5 1.5 - 6.5 K/cumm Imm gran abs 0.0 0.0 - 0.1 K/cumm [facility] Lymphocyte abs 1.3 0.8 - 3.3 K/cumm [facility] Monocyte abs 0.4 0.2 - 0.8 K/cumm [facility] Eosinophil abs 0.2 0.0 - 0.5 K/cumm [facility] Basophil abs 0.0 0.0 - 0.1 K/cumm [facility] Neutrophil pct 65.5 % [facility] Comment: Interpretive Data Percent cell count reference ranges are not reported, since discordance with absolute values may lead to misinterpretation of CBC data. Current Interpretive Data was last revised on 2017. Imm gran pct 0.2 % [facility] Comment: Interpretive Data Percent cell count reference ranges are not reported, since discordance with absolute values may lead to misinterpretation of CBC data. Current Interpretive Data was last revised on 2017. Lymphocyte pct 23.6 % [facility] Comment: Interpretive Data Percent cell count reference ranges are not reported, since discordance with absolute values may lead to misinterpretation of CBC data. Current Interpretive Data was last revised on 2017. Monocyte pct 7.7 % [facility] Comment: Interpretive Data Percent cell count reference ranges are not reported, since discordance with absolute values may lead to misinterpretation of CBC data. Current Interpretive Data was last revised on 2017. Eosinophil pct 2.8 % [facility] Comment: Interpretive Data Percent cell count reference ranges are not reported, since discordance with absolute values may lead to misinterpretation of CBC data. Current Interpretive Data was last revised on 2017. Basophil pct 0.2 % [facility] Comment: Interpretive Data Percent cell count reference ranges are not reported, since discordance with absolute values may lead to misinterpretation of CBC data. Current Interpretive Data was last revised on 2017. Blood 06/01/2024 10:0 3 AM CDT 06/01/2024 10:19 AM CDT us Patricia Davidson MD PhD LAB BLOOD ORDERABLES Final Result [facility] Department [place] [address] * (ABNORMAL) CBC with auto differential (06/01/2024 10:03 AM CDT) WBC 5.3 3.8 - 9.9 K/cumm Hgb 12.1 11.9 - 15.5 g/dL [facility] Hct 34.0(L) 35.6 - 45.5 % [facility] Plt 98(L) 150 - 400 K/cumm [facility] MPV 11.6 9.1 - 12.3 fL [facility] RBC 3.44(L) 3.90 - 5.20 M/cumm [facility] MCV 98.8(H) 81.3 - 96.4 fL [facility] MCH 35.2(H) 27.1 - 33.3 pg [facility] MCHC 35.6 32.3 - 35.7 g/dL [facility] RDW CV 12.8 11.1 - 14.9 % [facility] RDW SD 45.8 35.7 - 48.1 fL [facility] NRBC abs 0.00 0.00 - 0.01 K/cumm [facility] Blood 06/01/2024 10:0 3 AM CDT 06/01/2024 10:19 AM CDT Patricia Davidson MD PhD LAB BLOOD ORDERABLES Final Result Performing Organization Address [facility] de Phone Number ALEK [facility] Department [place] [address] * Tacrolimus level trough (06/01/2024 9:20 AM CDT) Pathologist [facility] Tacrolimus trough 6.5 ng/mL Comment: Interpretive Data Testing performed by liquid chromatography-tandem mass spectrometry. Therapeutic concentrations vary depending on type of transplanted organ and time elapsed since transplant. Typical trough concentrations range from 5-15 ng/mL. This test was developed and its performance characteristics determined by the [facility] consistent with CLIA requirements. This test has not been cleared or approved by the US Food and Drug administration. Current interpretive data last reviewed 2019. Blood 06/01/2024 9:20 AM CDT 06/01/2024 9:53 AM CDT Patricia Davidson MD PhD LAB BLOOD ORDERABLES Final Result Performing Organization Address [facility] de Phone Number ALEK [facility] [place] [address] * (ABNORMAL) eGFR (06/01/2024 6:17 AM CDT) [facility] eGFR 29(L) >=60 mL/min/1. 73 m2 Comment: [...] MD PhD LAB BLOOD ORDERABLES Final Result [facility] Department [place] [address] * (ABNORMAL) Renal function panel (06/01/2024 6:17 AM CDT) Sodium 135 135 - 145 mmol/L Potassium, pl 4.5 3.3 - 4.9 mmol/L [facility] Chloride 103 97 - 110 mmol/L [facility] CO2 22 22 - 32 mmol/L [facility] Anion gap 10 2 - 15 mmol/L [facility] BUN 24 6 - 25 mg/dL [facility] Creatinine 2.15(H) 0.60 - 1.10 mg/dL [facility] Glucose 120 70 - 199 mg/dL [facility] Comment: Interpretive Data Fasting glucose >/= 126 [...] 2022. Calcium 8.7 8.5 - 10.3 mg/dL [facility] Phosphorus, pl 2.8 2.3 - 4.5 mg/dL [facility] Albumin 3.6 3.5 - 5.0 g/dL [facility] Blood 06/01/2024 6:17 AM CDT 06/01/2024 6:52 AM CDT us Patricia Davidson MD PhD LAB BLOOD ORDERABLES Final Result ALEK [facility] Department [place] [address] * TRANSTHORACIC ECHO (TTE) COMPLETE W DOPPLER/CF WO CONTRAST (05/31/2024 2:50 PM CDT) Anatomical Region Laterality Modality Ultrasound 05/31/2024 2:12 PM CDT Narrative 05/31/2024 3:36 PM CDT [facility] [place] [address] Transthoracic Echocardiographic Report Patient Name: MISHA BROWNE : 1980 (43y 7m) Gender: F Study Date: 05/31/2024 02:12:33 PM Ht(Inch): 63 Wt(Lb): 184.97 BSA: 1.93 [employer] Operator: Elisabeth Em RDCS Location: [id number] Order Provider: PINEDA HINOJOSA Heart Rate: 61 [...] trileaflet aortic valve. Mild aortic valve regurgitation (YXJ=526 ms). The mean transaortic gradient is 4 [...] LA Length 4C 6.78 cm AI Decel [place] 2.15 m/s2 LA Length 2C 6.66 cm [...] PV Peak PG 2.56 mmHg PI ED Abdeil 90.44 m/sec Electronically Signed By: Stalin Krishna M.D. 05/31/2024 3:36:31 PM CDT Procedure Note Stalin Krishna MD - 05/31/2024 [facility] [place] [address] Transthoracic Echocardiographic Report Patient Name: MISHA BROWNE : 1980 (43y 7m) Gender: F Study Date: 05/31/2024 02:12:33 PM Ht(Inch): 63 Wt(Lb): 184.97 BSA: 1.93 [employer] Operator: Elisabeth Em RDCS Location: [place] [address] Order Provider:PINEDA HINOJOSA Heart Rate: 61 BMI: [...] Normal trileaflet aortic valve. Mild aortic valve regurgitation(SMD=118 ms). The mean transaortic gradient is 4 [...] [ -25.0 - -18.0 ] AI Decel [id number] sec LA Length 4C 6.78 cm AI Decel Slope2.15 m/s2 LA Length 2C 6.66 cm AI YEZ608.76 msec LA Volume BP 83.77 ml MV [...] [ 1.71 - 5.00 ] MV Decel Mefa516.34 msec [ 104.00 - 258.00 ] RA [...] Stalin Krishna M.D. 05/31/2024 3:36:31 PM CDT us Pineda Barrios MD CV ECHO PROCED URES [...] MD PhD LAB BLOOD ORDERABLES Final Result [facility] Department [place] [address] * Differential, auto (05/31/2024 4:55 AM CDT) Neutrophil abs 4.9 1.5 - 6.5 K/cumm Imm gran abs 0.0 0.0 - 0.1 K/cumm [facility] Lymphocyte abs 1.4 0.8 - 3.3 K/cumm [facility] Monocyte abs 0.6 0.2 - 0.8 K/cumm [facility] Eosinophil abs 0.1 0.0 - 0.5 K/cumm [facility] Basophil abs 0.0 0.0 - 0.1 K/cumm [facility] Neutrophil pct 69.8 % [facility] Comment: Interpretive Data Percent cell count reference ranges are not reported, since discordance with absolute values may lead to misinterpretation of CBC data. Current Interpretive Data was last revised on 2017. Imm gran pct 0.6 % [facility] Comment: Interpretive Data Percent cell count reference ranges are not reported, since discordance with absolute values may lead to misinterpretation of CBC data. Current Interpretive Data was last revised on 2017. Lymphocyte pct 19.7 % [facility] Comment: Interpretive Data Percent cell count reference ranges are not reported, since discordance with absolute values may lead to misinterpretation of CBC data. Current Interpretive Data was last revised on 2017. Monocyte pct 8.0 % [facility] Comment: Interpretive Data Percent cell count reference ranges are not reported, since discordance with absolute values may lead to misinterpretation of CBC data. Current Interpretive Data was last revised on 2017. Eosinophil pct 1.9 % [facility] Comment: Interpretive Data Percent cell count reference ranges are not reported, since discordance with absolute values may lead to misinterpretation of CBC data. Current Interpretive Data was last revised on 2017. Basophil pct 0.0 % [facility] Comment: Interpretive Data Percent cell count reference ranges are not reported, since discordance with absolute values may lead to misinterpretation of CBC data. Current Interpretive Data was last revised on 2017. Blood 05/31/2024 4:55 AM CDT 05/31/2024 5:49 AM CDT Patricia Davidson MD PhD LAB BLOOD ORDERABLES Final Result Performing Organization Address [facility] de Phone Number [facility] [place] [address] * Tacrolimus level trough (05/31/2024 4:55 AM CDT) [facility] Tacrolimus trough 9.2 ng/mL Comment: Interpretive Data Testing performed by liquid chromatography-tandem mass spectrometry. Therapeutic concentrations vary depending on type of transplanted organ and time elapsed since transplant. Typical trough concentrations range from 5-15 ng/mL. This test was developed and its performance characteristics determined by the [facility] consistent with CLIA requirements. This test has not been cleared or approved by the [place] Food and Drug administration. Current interpretive data last reviewed 2019. Blood 05/31/2024 4:55 AM CDT 05/31/2024 5:49 AM CDT Result [facility] Patricia Davidson MD PhD LAB BLOOD ORDERABLES Final Result Performing Organization Address [facility] [place] [address] * (ABNORMAL) CBC with auto differential (05/31/2024 4:55 AM CDT) [facility] WBC 7.0 3.8 - 9.9 K/cumm Hgb 11.2(L) 11.9 - 15.5 g/dL [facility] Hct 31.4(L) 35.6 - 45.5 % [facility] Plt 102(L) 150 - 400 K/cumm [facility] MPV 10.9 9.1 - 12.3 fL [facility] RBC 3.15(L) 3.90 - 5.20 M/cumm [facility] MCV 99.7(H) 81.3 - 96.4 fL [facility] MCH 35.6(H) 27.1 - 33.3 pg [facility] MCHC 35.7 32.3 - 35.7 g/dL [facility] RDW CV 12.9 11.1 - 14.9 % [facility] RDW SD 46.0 35.7 - 48.1 fL [facility] NRBC abs 0.00 0.00 - 0.01 K/cumm [facility] Blood 05/31/2024 4:55 AM CDT 05/31/2024 5:49 AM CDT us Patricia Davidson MD PhD LAB BLOOD ORDERABLES Final Result [facility] Department [place] [address] * (ABNORMAL) Renal function panel (05/31/2024 4:55 AM CDT) Pathologist [facility] Sodium 136 135 - 145 mmol/L Potassium, pl 4.6 3.3 - 4.9 mmol/L [facility] Chloride 105 97 - 110 mmol/L [facility] CO2 23 22 - 32 mmol/L [facility] Anion gap 8 2 - 15 mmol/L [facility] BUN 30(H) 6 - 25 mg/dL [facility] Creatinine 2.90(H) 0.60 - 1.10 mg/dL [facility] Glucose 119 70 - 199 mg/dL [facility] Comment: Interpretive Data Fasting glucose >/= 126 [...] 2022. Calcium 8.4(L) 8.5 - 10.3 mg/dL [facility] Phosphorus, pl 3.2 2.3 - 4.5 mg/dL [facility] Albumin 3.6 3.5 - 5.0 g/dL [facility] Blood 05/31/2024 4:55 AM CDT 05/31/2024 5:48 AM CDT Patricia Davidson MD PhD LAB BLOOD ORDERABLES Final Result Performing Organization Address City/[facility]/ZIP Co de Phone Number [facility] [place] [address] * Sodium, urine, random (05/30/2024 5:23 PM CDT) Sodium, ur <20 mmol/L Comment: Interpretive Data No reference range established. Current interpretive data was last revised 2018. Urine 05/30/2024 5:23 PM CDT 05/30/2024 5:59 PM CDT Pineda Barrios MD LAB URINE ORDE RABLES Final Result Performing Organization Address [facility] Co de Phone Number [facility] [address] * Creatinine, urine, random (05/30/2024 5:23 PM CDT) Creatinine Ur 121.1 mg/dL Comment: Interpretive Data No reference range established. Current interpretive data was last revised 2018. Urine 05/30/2024 5:23 PM CDT 05/30/2024 5:59 PM CDT Pineda Barrios MD LAB URINE ORDE RABLES Final Result Performing Organization Address [facility] Co de Phone Number [facility] [place] [address] * BK virus PCR quantitative Blood (05/30/2024 4:44 AM CDT) Pathologist [facility] BKV DNA result, pl Not Detected [facility] Comment: The quantifiable range of this assay is 21.5 IU/mL to 100,000,000 IU/mL (1.33 log IU/mL to 8.00 log IU/mL). Testing was performed by the GASTON 6800 BKV Quantatitive Test version 2.0 ([employer] Testing performed at [facility] Current Interpretive Data was last revised on 2021. Blood 05/30/2024 4:44 AM CDT 05/30/2024 5:55 AM CDT Patricia Davidson MD PhD LAB MICROBIOLOGY - GENERAL ORDERABLES Final Result Performing Organization Address [facility]/ZIP Co de Phone Number [facility] [place] [address] [facility] * Collection Task for HLA Antibody Screen (05/30/2024 4:44 AM CDT) [facility] HLA Antibody Screen By Single Antigen Received Blood 05/30/2024 4:44 AM CDT 05/30/2024 9:01 AM CDT Patricia Davidson MD PhD LAB BLOOD ORDERABLES Final Result Performing Organization Address [facility]/ZIP Co de Phone Number [facility] [place] [address] * Cytomegalovirus (CMV) DNA PCR, quantitative Blood (05/30/2024 4:44 AM CDT) [facility] CMV DNA Not Detected [facility] Comment: Interpretive Data: The quantifiable range of this assay is 34 IUnits/mL to 10,000,000 IUnits/mL (1.53 log IUnits/mL to 7.0 log IUnits/mL). Testing was performed by the GASTON 6800 CMV Test ([employer] Testing performed at [facility]. Current interpretive data was last revised on 2020. Blood 05/30/2024 4:44 AM CDT 05/30/2024 5:55 AM CDT Patricia Davidson MD PhD LAB MICROBIOLOGY - GENERAL ORDERABLES Final Result Performing Organization Address [facility] Co de Phone Number [facility] [place] [address] [facility] * (ABNORMAL) eGFR (05/30/2024 4:44 AM CDT) [...] BLOOD ORDERABLES Final Result Performing Organization Address [facility]/ZIP Co de Phone Number [facility] Department [place] [address] * Differential, auto (05/30/2024 4:44 AM CDT) Pathologist [facility] Neutrophil abs 5.0 1.5 - 6.5 K/cumm Imm gran abs 0.0 0.0 - 0.1 K/cumm [facility] Lymphocyte abs 1.7 0.8 - 3.3 K/cumm [facility] Monocyte abs 0.5 0.2 - 0.8 K/cumm [facility] Eosinophil abs 0.1 0.0 - 0.5 K/cumm [facility] Basophil abs 0.0 0.0 - 0.1 K/cumm [facility] Neutrophil pct 68.2 % [facility] Comment: Interpretive Data Percent cell count reference ranges are not reported, since discordance with absolute values may lead to misinterpretation of CBC data. Current Interpretive Data was last revised on 2017. Imm gran pct 0.5 % [facility] Comment: Interpretive Data Percent cell count reference ranges are not reported, since discordance with absolute values may lead to misinterpretation of CBC data. Current Interpretive Data was last revised on 2017. Lymphocyte pct 22.6 % [facility] Comment: Interpretive Data Percent cell count reference ranges are not reported, since discordance with absolute values may lead to misinterpretation of CBC data. Current Interpretive Data was last revised on 2017. Monocyte pct 6.8 % [facility] Comment: Interpretive Data Percent cell count reference ranges are not reported, since discordance with absolute values may lead to misinterpretation of CBC data. Current Interpretive Data was last revised on 2017. Eosinophil pct 1.8 % [facility] Comment: Interpretive Data Percent cell count reference ranges are not reported, since discordance with absolute values may lead to misinterpretation of CBC data. Current Interpretive Data was last revised on 2017. Basophil pct 0.1 % [facility] Comment: Interpretive Data Percent cell count reference ranges are not reported, since discordance with absolute values may lead to misinterpretation of CBC data. Current Interpretive Data was last revised on 2017. Blood 05/30/2024 4:44 AM CDT 05/30/2024 5:30 AM CDT us Patricia Davidson MD PhD LAB BLOOD ORDERABLES Final Result [facility] Department [place] [address] * Tacrolimus level trough (05/30/2024 4:44 AM CDT) [facility] Tacrolimus trough 16.5 ng/mL Comment: Interpretive Data Testing performed by liquid chromatography-tandem mass spectrometry. Therapeutic concentrations vary depending on type of transplanted organ and time elapsed since transplant. Typical trough concentrations range from 5-15 ng/mL. This test was developed and its performance characteristics determined by the [facility] consistent with CLIA requirements. This test has not been cleared or approved by the [place] Food and Drug administration. Current interpretive data last reviewed 2019. Blood 05/30/2024 4:44 AM CDT 05/30/2024 5:30 AM CDT Patricia Davidson MD PhD LAB BLOOD ORDERABLES Final Result Performing Organization Address [facility] Co de Phone Number [facility] Department [place] [address] * (ABNORMAL) CBC with auto differential (05/30/2024 4:44 AM CDT) [facility] WBC 7.4 3.8 - 9.9 K/cumm Hgb 12.0 11.9 - 15.5 g/dL [facility] Hct 33.9(L) 35.6 - 45.5 % [facility] Plt 130(L) 150 - 400 K/cumm [facility] MPV 10.8 9.1 - 12.3 fL [facility] RBC 3.40(L) 3.90 - 5.20 M/cumm [facility] MCV 99.7(H) 81.3 - 96.4 fL [facility] MCH 35.3(H) 27.1 - 33.3 pg [facility] MCHC 35.4 32.3 - 35.7 g/dL [facility] RDW CV 13.0 11.1 - 14.9 % [facility] RDW SD 47.4 35.7 - 48.1 fL [facility] NRBC abs 0.00 0.00 - 0.01 K/cumm [facility] Blood 05/30/2024 4:44 AM CDT 05/30/2024 5:30 AM CDT Patricia Davidson MD PhD LAB BLOOD ORDERABLES Final Result [facility] Department [place] [address] * (ABNORMAL) Renal function panel (05/30/2024 4:44 AM CDT) Pathologist [facility] Sodium 142 135 - 145 mmol/L Potassium, pl 4.2 3.3 - 4.9 mmol/L [facility] Chloride 108 97 - 110 mmol/L [facility] CO2 25 22 - 32 mmol/L [facility] Anion gap 9 2 - 15 mmol/L [facility] BUN 23 6 - 25 mg/dL [facility] Creatinine 2.76(H) 0.60 - 1.10 mg/dL [facility] Glucose 123 70 - 199 mg/dL [facility] Comment: Interpretive Data Fasting glucose >/= 126 [...] 2022. Calcium 9.1 8.5 - 10.3 mg/dL [facility] Phosphorus, pl 3.6 2.3 - 4.5 mg/dL [facility] Albumin 3.8 3.5 - 5.0 g/dL [facility] Blood 05/30/2024 4:44 AM CDT 05/30/2024 5:31 AM CDT Patricia Davidson MD PhD LAB BLOOD ORDERABLES Final Result ALEK [facility] Department [place] [address] * HLA Donor Specific Antibody Report (05/30/2024 [...] BLOOD ORDERABLES Final Result Performing Organization Address City/[facility]/ZIP Co de Phone Number [facility] * ECG 12 lead (05/30/2024 1:10 AM CDT) Ventricular Rate EKG/Min 75 BPM [facility] Atrial Rate 75 BPM [facility] [place]-Interval (MSEC) 160 ms [facility] QRS-Interval (MSEC) 82 ms [facility] QT-Interval (MSEC) 456 ms [facility] QTc 509 ms [facility] P [place] 31 degrees [facility] R [place] -9 degrees [facility] T [place] 44 degrees [facility] Diagnosis Normal sinus rhythm Poor r wave progression associated with abnormal lead placement, obesity, pulmonary disease, anterior infarction. Prolonged QT Abnormal ECG When compared with ECG of 20-APR-2020 11:02, QRS voltage has increased Confirmed by BRODIE LEIGH M.D ([id number]) on 05/30/2024 12:29:55 PM [facility] 05/30/2024 1:10 AM CDT 05/30/2024 12:29 PM CDT us Patricia Davidson MD PhD ECG ORDERABLES Final Resul t [employer] [facility] [[email or web address]] * US Renal Transplant W Dopplers (05/29/2024 [...] by: Ziyad Purdy M.D. Jessee Mandel MD IM US PROCEDURES Aniya l Result * Influenza A/B, RSV, and COVID-19 PCR Nasopharyngeal (05/29/2024 4:10 PM CDT) [facility] COVID-19 RNA Negative Negative [facility] Influenza A RNA Negative Negative [facility] Influenza B RNA Negative Negative [facility] RSV RNA Negative Negative [facility] Comment: Interpretive data: Testing performed by [facility] ([phone]). This test is performed using the [employer] Xpert Xpress CoV-2/Flu/RSV plus assay. This is a multiplex, real-time reverse transcriptase PCR assay intended for the qualitative detection of nucleic acid from SARS-CoV-2, influenza A, influenza B, and respiratory syncytial virus. This assay has been cleared by the [place] Food and Drug administration. The performance characteristics have been verified by the [facility]. Results must be considered in the clinical context, and a negative result does not rule out infection. Interpretive Data last revised 2023 Nasopharyngeal 05/29/2024 4: 10 PM CDT 05/29/2024 5:03 PM CDT Narrative [facility] - 05/29/2024 5:51 PM CDT Is the Patient experiencing symptoms consistent with COVID?->Unknown Mona Barrios MD LAB MICROBIOLOGY - GEN ERAL ORDERABLES Final Result [facility] Department [place] [address] [facility] * Respiratory pathogen panel Nasopharyngeal (05/29/2024 4:10 PM CDT) Pathologist [facility] Influenza A RNA Not Detected Not Detected Influenza B RNA Not Detected Not Detected [facility] RSV RNA Not Detected Not Detected [facility] COVID-19 RNA Not Detected Not Detected [facility] Coronavirus 229E RNA Not Detected Not Detected [facility] Coronavirus HKU1 RNA Not Detected Not Detected [facility] Coronavirus NL63 RNA Not Detected Not Detected [facility] Coronavirus OC43 RNA Not Detected Not Detected [facility] Adenovirus DNA Not Detected Not Detected [facility] Metapneumovirus RNA Not Detected Not Detected [facility] Rhinovirus/Enterov irus RNA Not Detected Not Detected [facility] Parainfluenza 1 RNA Not Detected Not Detected [facility] Parainfluenza 2 RNA Not Detected Not Detected [facility] Parainfluenza 3 RNA Not Detected Not Detected [facility] Parainfluenza 4 RNA Not Detected Not Detected [facility] B. pertussis DNA Not Detected Not Detected [facility] B. parapertussis DNA Not Detected Not Detected [facility] C. pneumoniae DNA Not Detected Not Detected [facility] M. pneumoniae DNA Not Detected Not Detected [facility] Nasopharyngeal 05/29/2024 4: 10 PM CDT 05/30/2024 6:07 AM CDT Narrative [facility] - 05/30/2024 7:05 AM CDT Interpretive Data The [employer] Respiratory Panel (RP2.1) assay is a [...] assay has FDA clearance for testing of C[employer]ER swabs. The performance of additional specimen types has been assessed by the performing laboratory. The performance characteristics of this assay have been determined by [facility]. Current interpretive data was last revised on 21. Pineda Barrios MD LAB MICROBIOLO GY - GENERAL ORDERABLES Final Result [facility] Department [place] [address] * Urinalysis reflex to microscopic (05/29/2024 3:31 PM CDT) Color, ur Yellow Yellow Clarity, ur Clear Clear [facility] Specific gravity, ur 1.013 1.003 - 1.030 [facility] pH, urine 5.5 [facility] Comment: Interpretive Data U rine pH is affected by diet, medications, systemic acid-base disturbances, and renal tubular function. pH may affect urinary stone formation. For example, urine pH below 6.0 may help reduce the tendency for calcium phosphate stones and pH greater than 6.0 may reduce the tendency for uric acid stone formation. Source: [facility] Current Interpretive Data was last revised on 2017 Protein, ur ql Trace Negative [facility] Glucose, ur ql Negative Negative [facility] Ketones, ur Negative Negative [facility] Bilirubin, ur Negative Negative [facility] Blood, ur Negative Negative [facility] Urobilinogen, ur <2.0 <2.0 mg/dL [facility] Nitrite, ur Negative Negative [facility] Leukocyte esterase, ur Negative Negative [facility] UA reflex comment Reflex conditions for microscopic UA not met. [facility] Urine 05/29/2024 3:31 PM CDT 05/29/2024 3:38 PM CDT Shruti Damon MD LAB URINE ORDERABLES Aniya l Result [facility] Department [place] [address] * POCT hCG, urine (05/29/2024 3:30 PM [...] DEVICE F inal Result Performing Organization Address City/[facility]/ZIP Co de Phone Number [facility] Department [place] [address] * (ABNORMAL) eGFR (05/29/2024 2:57 PM CDT) eGFR 30(L) >=60 mL/min/1. 73 [...] LAB BLOOD ORDERABLES Aniya l Result [place] [address] * Differential, auto (05/29/2024 2:57 PM CDT) Neutrophil abs 5.5 1.5 - 6.5 K/cumm Imm gran abs 0.0 0.0 - 0.1 K/cumm [facility] Lymphocyte abs 0.9 0.8 - 3.3 K/cumm [facility] Monocyte abs 0.4 0.2 - 0.8 K/cumm [facility] Eosinophil abs 0.1 0.0 - 0.5 K/cumm [facility] Basophil abs 0.0 0.0 - 0.1 K/cumm [facility] Neutrophil pct 79.6 % [facility] Comment: Interpretive Data Percent cell count reference ranges are not reported, since discordance with absolute values may lead to misinterpretation of CBC data. Current Interpretive Data was last revised on 2017. Imm gran pct 0.4 % [facility] Comment: Interpretive Data Percent cell count reference ranges are not reported, since discordance with absolute values may lead to misinterpretation of CBC data. Current Interpretive Data was last revised on 2017. Lymphocyte pct 13.7 % [facility] Comment: Interpretive Data Percent cell count reference ranges are not reported, since discordance with absolute values may lead to misinterpretation of CBC data. Current Interpretive Data was last revised on 2017. Monocyte pct 5.5 % [facility] Comment: Interpretive Data Percent cell count reference ranges are not reported, since discordance with absolute values may lead to misinterpretation of CBC data. Current Interpretive Data was last revised on 2017. Eosinophil pct 0.7 % [facility] Comment: Interpretive Data Percent cell count reference ranges are not reported, since discordance with absolute values may lead to misinterpretation of CBC data. Current Interpretive Data was last revised on 2017. Basophil pct 0.1 % [facility] Comment: Interpretive Data Percent cell count reference ranges are not reported, since discordance with absolute values may lead to misinterpretation of CBC data. Current Interpretive Data was last revised on 2017. Blood 05/29/2024 2:57 PM CDT 05/29/2024 3:21 PM CDT Shruti Damno MD LAB BLOOD ORDERABLES Aniya andrez Result Performing Organization Address [facility]/ZIP Co de Phone Number [facility] Department [place] [address] * (ABNORMAL) CBC with auto differential (05/29/2024 2:57 PM CDT) [facility] WBC 6.9 3.8 - 9.9 K/cumm Hgb 13.5 11.9 - 15.5 g/dL [facility] Hct 38.8 35.6 - 45.5 % [facility] Plt 129(L) 150 - 400 K/cumm [facility] MPV 10.7 9.1 - 12.3 fL [facility] RBC 3.88(L) 3.90 - 5.20 M/cumm [facility] MCV 100.0(H) 81.3 - 96.4 fL [facility] MCH 34.8(H) 27.1 - 33.3 pg [facility] MCHC 34.8 32.3 - 35.7 g/dL [facility] RDW CV 13.0 11.1 - 14.9 % [facility] RDW SD 47.6 35.7 - 48.1 fL [facility] NRBC abs 0.00 0.00 - 0.01 K/cumm [facility] Blood Venous blood specimen / Unknown 05/29/2024 2:57 PM CDT 05/29/2024 3:21 PM CDT Shruti Damon MD LAB BLOOD ORDERABLES Aniya maguire Result Performing Organization Address City/[facility]/ZIP Co de Phone Number [facility] Department [place] [address] * Tacrolimus level random (05/29/2024 2:57 PM CDT) [facility] Tacrolimus random 20.2 ng/mL Comment: Interpretive Data Testing performed by liquid chromatography-tandem mass spectrometry. Therapeutic concentrations vary depending on type of transplanted organ and time elapsed since transplant. Typical trough concentrations range from 5-15 ng/mL. This test was developed and its performance characteristics determined by the [facility] consistent with CLIA requirements. This test has not been cleared or approved by the [place] Food and Drug administration. Current interpretive data last reviewed 2019. Blood 05/29/2024 2:57 PM CDT 05/29/2024 3:28 PM CDT Pineda Barrios MD LAB BLOOD ORDE RABLES Final Result [facility] Department [place] [address] * Lipase (05/29/2024 2:57 PM CDT) [facility] Lipase 12 10 - 99 Units/L Blood Venous blood specimen / Unknown 05/29/2024 2:57 PM CDT 05/29/2024 3:20 PM CDT Shruti Damon MD LAB BLOOD ORDERABLES Aniya l Result Performing Organization Address City/[facility]/ZIP Co de Phone Number [facility] [place] [address] * (ABNORMAL) Comprehensive metabolic panel (05/29/2024 2:57 PM CDT) [facility] Sodium 137 135 - 145 mmol/L Potassium, pl 4.6 3.3 - 4.9 mmol/L [facility] Chloride 107 97 - 110 mmol/L [facility] CO2 18(L) 22 - 32 mmol/L [facility] Anion gap 12 2 - 15 mmol/L [facility] BUN 22 6 - 25 mg/dL [facility] Creatinine 2.10(H) 0.60 - 1.10 mg/dL [facility] Glucose 185 70 - 199 mg/dL [facility] Comment: Interpretive Data Fasting glucose >/= 126 [...] 2022. Calcium 9.9 8.5 - 10.3 mg/dL [facility] Bilirubin, total 0.8 0.1 - 1.2 mg/dL [facility] Protein, pl 7.6 6.5 - 8.5 g/dL [facility] Albumin 4.0 3.5 - 5.0 g/dL [facility] Alk phos 372(H) 40 - 130 Units/L [facility] ALT 22 7 - 45 Units/L [facility] AST 28 10 - 45 Units/L [facility] Blood 05/29/2024 2:57 PM CDT 05/29/2024 3:20 PM CDT Shruti Damon MD LAB BLOOD ORDERABLES Aniya maguire Result [facility] Department [place] [address] * Hepatitis panel, acute (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 Current interpretive data was last revised on 19. Hep B core IgM Nonreactive Nonreactive [facility] Comment: Interpretive Data If HepB Core IgM Ab is reported as Equivocal, a new sample should be drawn in two weeks for testing. Current interpretive data was last revised on 19. Hep C Ab Nonreactive Nonreactive [facility] Comment:Antibodies to HCV no t detected. Does NOT exclude the possibility of recent exposure to HCV. HepBsAg Nonreactive Nonreactive [facility] Blood specimen (specimen) 04/16/2020 6:35 AM TOOL MACHINIST 04/16/2020 7:34 AM TOOL MACHINIST us Jacob Gates MD LAB MICROBIOLOGY - GENER AL ORDERABLES Final Result [facility] [place] [address] from Last 3 Months or Most Recently Relevant to Health Maintenance Insurance [employer] OPEN ACCESS [employer] [facility] [employer] OPEN ACCESS [facility] Advance Directives For more information, please contact: [phone] * Full Code (Latest Code Status on File) Date Activated Date Inactivated Comments 05/29/2024 10:30 PM 06/13/2024 7:10 PM * Full Code Date Activated Date Inactivated Comments 04/16/2020 1:16 AM 04/23/2020 6:51 PM * Full Code Date Activated Date Inactivated Comments 08/14/2019 3:14 PM 08/14/2019 9:26 PM * Full Code Date Activated Date Inactivated Comments 07/25/2019 6:15 AM 07/25/2019 11:51 PM Care Teams [place] Superintendent Relationship Specialty Start Date End Date Lyly Foire NP [address] [place] [address] PCP - General Nurse Practitioner 05/29/24 Beatriz Lee MD [address] [place] [address] Referring Physician Gastroenterology 07/25/19 Taylor Kitchen, ip technology transactions attorneyDirector Multimedia 05/29/24
--- OUTSIDE RECORDS SUMMARY | 2024-07-20 15:19 | XMS_ITS | Referral Summary ---
Author Organization [facility] Address [address] [facility] [place] [address] Care Team Providers Care Railroad Whe[employer] Ax[employer] Inspector Name Role Phone Beatriz Lee MD Unavailable [phone] Lyly Fiore NP Primary Care Provider Taylor Kitchen RN Unavailable Unav ailable Encounters Date Type Department Care Team Description 07/19/2024 Telephone [facility] Trans[facility] Liver [address] [facility] [address] Mailstop [phone] [place] [address] Karmen Garsia RN After Hours; Abdominal Pain 07/17/2024 Telephone [facility] Transplant Liver [address] [facility] [address] Mailstop [phone] [place] [address] Lorena Turner 07/12/2024 5:48 PM CDT - 07/12/2024 11:59 PM CDT Hospital Encounter [facility] [address] [place] [address] Discharge Disposition: Discharge to home or self care 07/12/2024 5:46 PM CDT - 07/12/2024 11:59 PM CDT Hospital Encounter [facility] [address] [place] [address] Discharge Disposition: Discharge to home or self care 07/12/2024 5:44 PM CDT - 07/12/2024 11:59 PM CDT Hospital Encounter [facility] [address] [place] [address] Discharge Disposition: Discharge to home or self care 07/12/2024 5:43 PM CDT - 07/12/2024 11:59 PM CDT Hospital Encounter [facility] [address] [place] [address] Discharge Disposition: Discharge to home or self care 07/12/2024 Telephone [facility] Nephrology [address] [facility] 5th [place] [address] [place] [address] Wilson Swift MD 07/11/2024 Telephone [facility] Transplant Liver [address] [facility] [address] Mail[address] 90-29-[address] [place] [address] Dafne Dukes RN 07/11/2024 Telephone [facility] Transplant Liver [address] [facility] [address] Mailstop 90-29-8 [place] [address] Yulisa Welch 07/10/2024 Telephone [facility] Transplant Liver [address] [facility] [address] Mailstop 90-29-8 [place] [address] Liyah Kamara 07/09/2024 Telephone [facility] Transplant Liver [address] [facility] [address] Mailstop 90-29-8 [place] [address] Dafne Dukes, ANSON 07/09/2024 Telephone [facility] Transplant Liver [address] [facility] [address] Mailstop 90-29-908 [place] [address] Yulisa Welch 07/09/2024 8:48 AM CDT - 07/09/2024 11:59 PM CDT Hospital Encounter [facility] [address] [place] [address] Discharge Disposition: Discharge to home or self care 07/09/2024 8:46 AM CDT - 07/09/2024 11:59 PM CDT Hospital Encounter [facility] [address] [place] [address] Discharge Disposition: Discharge to home or self care 07/09/2024 8:44 AM CDT - 07/09/2024 11:59 PM CDT Hospital Encounter [facility] [address] [place] [address] Discharge Disposition: Discharge to home or self care 07/04/2024 Telephone [facility] Transplant Liver [address] [facility] [address] Mail[address] [facility] [place] [address] Lorena Turner 07/04/2024 Telephone [facility] Transplant Liver [address] [facility] [address] Mail[address] [facility] [place] [address] Lorena Turner 07/03/2024 Telephone [facility] Transplant Liver [address] [facility] [address] Mail[address] [facility] [place] [address] Dafne Dukes, RN 07/02/2024 Telephone [facility] Transplant Liver [address] [facility] 340 Mailop [facility] [place] [address] Dafne Dukes, RN 07/02/2024 Telephone [facility] Transplant Liver [address] [place] [address] [place] [address] Dafne Dukes, RN 06/26/2024 Orders Only [facility] Transplant Liver [address] [facility] [address] [place], [place] [address] [place] [address] Dafne Dukes, RN Status post liver transplant (HCC) (Primary Dx); Encounter for long-term (current) use of medications 06/26/2024 Telephone [facility] Transplant Liver [address] [facility] 340 Mailstop [facility] [place] [address] Lorena Turner 06/26/2024 Orders Only [facility] Transplant Liver [address] [place] [address] [address] Mailop [phone] [place] [address] Dafne Dukes RN History of liver transplant (HCC) (Primary Dx); Encounter for long-term (current) use of medications 06/26/2024 Documentation [facility] Transplant Liver [address] [place] [address] [address] Mailop -61-874 [place] [address] Dafne Dukes RN 06/26/2024 Telephone [facility] Transplant Liver [address] [place] [address] [address] [facility] [place] [address] Dafne Dukes RN 06/26/2024 9:30 AM CDT Office Visit [facility] Gasteroenterology [address] [place] [address] 12th [place] [address] [place] [address] Beatriz Lee MD Nicotine dependence with current use 06/14/2024 SHOP/CHAP Initial Eligibility Review [facility] OP CASE MANAGEMENT [address] [place] [address] Shireen Griffin RN 06/13/2024 Orders Only [facility] Transplant Liver [address] [place] [address]-23-704 [place] [address] Dafne Dukes RN Kidney transplanted (Primary Dx) 05/29/2024 3:11 PM CDT - 06/13/2024 3:04 PM CDT Hospital Encounter [facility] 1 [place] [address] Jessee Mandel MD Edwards, MD Pooja Felix, MD Scout Levin, MD David Santos, Patrick José MD Abdominal pain (Primary Dx); CHRISTY (acute kidney injury); Chronic generalized pain [R52, G89.29]; High risk medication use [Z79.899]; Hyperkalemia; Chronic bilateral low back pain without sciatica; 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 Discharge Disposition: Discharge to home or self care 06/06/2024 Telephone [facility] Transplant Kidney [address] [facility] [address] Mailstop [id number] [place] [address] Netta Mcintosh 05/09/2024 Telephone [facility] Transplant Liver [address] [facility] [address] Mailstop 98-05-737 [place] [address] Liyah Kamara 05/07/2024 Telephone [facility] Transplant Liver [address] [facility] [address] Mailstop 58-87-097 [place] [address] Lorena Turner 05/07/2024 Telephone [facility] Transplant Liver [address] [facility] [address] Mailstop 53-89-208 [place] [address] Lorena Turner 05/06/2024 Documentation [facility] Transplant Liver [address] [facility] [address] Mailstop 57-37-681 [place] [address] Taylor Kitchen RN 05/06/2024 Telephone [facility] Transplant Liver [address] [facility] 340 Mailstop 29-81-433 [place] [address] Lorena Turner Referral - Liver Txp from [...] total) by mouth daily 30 tablet 11 06/27/19 25 026 Active predniSONE (DELTASONE) 5 [...] t be different from the original. Lab: [facility]. . . Pharmacy: [place], [place] Patient enrolled in [employer] assistance program [...] Transplant starting process of assuming care from [facility], but in short term they recommend patient follow up with renal transplant at [facility]. - She is NOW actively enrolled in the [employer] free patient assistance program through mar 2025 - script needs to be sent to [facility] (sent). Hyperbilirubinemia 04/16/2020 Assessment & Plan (04/16/2020 5:01 AM RELATIONS SPECIALIST): - T. Bili of 7 (last was [...] 07/25/2019 Assessment & Plan (04/16/2020 2:25 AM RELATIONS SPECIALIST): See hyperbili problem. Concern for ascites Assessment [...] 12/14/2016 Assessment & Plan (04/16/2020 2:26 AM RELATIONS SPECIALIST): - Chronic, concerned that this may be [...] liver and kidney transplant 04/2020. 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 We would need to call [facility] to identify a contracted center ([phone]). She lives close enough to [place] that would be the most likely city she could travel to. She also noted that she could always remarry an ex- as he has insurance that may be covered at [facility]. Appreciate note from nephrology and agree with restarting oral diuretics. Can continue tacrolimus at the current dose. MRI/MRCP completed and will review with radiology to identify if any role for PTC. 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 Poor follow up with Dr. Vazqeuz. Poor compliance with tacro - check tacro [...] meds Assessment & Plan (04/16/2020 5:01 AM RELATIONS SPECIALIST): Unclear if progression of CKD vs acute [...] Cr of 1.8. She follows with local roustabout hand Dr. Mathew and thinks her baseline is 2.1. She was at 2.3 at OSH. She took some diuretics at home and was given lasix at [facility]SH ED. --UA, urine lytes --get records from her roustabout hand to find out baseline --random tacro level [...] on file Legal Sex Female 10:10 PM RELATIONS SPECIALIST Gender Identity Not on file Sexual [...] :35 AM CDT POTASSIUM, WHOLE BLOOD STAT 5 4:17 AM CDT EGFR Routine 06/10/2024 4:14 [...] CDT HEPATITIS PANEL, ACUTE Routine 6:35 AM RELATIONS SPECIALIST from Last 3 Months or Most Recently Relevant to Health Maintenance Results * Neuro CT Outside Reference (07/12/2024 5:48 PM CDT) Impressions [facility] - 07/12/2024 5:48 PM CDT These images are for Reference purposes only and have not been reviewed by [facility] Radiology. There will be no report generated by a [facility] Radiologist. Narrative [facility] - 07/12/2024 5:48 PM CDT EXAMINATION: Images For Reference Purposes Only us Jessee Morton MD IMG CT PROCEDURES Final Re sult [email or web address] * Neuro CT Outside Reference (07/12/2024 5:46 PM CDT) Impressions [facility] - 07/12/2024 5:46 PM CDT These images are for Reference purposes only and have not been reviewed by [facility] Radiology. There will be no report generated by a [facility] Radiologist. Narrative [facility] - 07/12/2024 5:46 PM CDT EXAMINATION: Images For Reference Purposes Only Result [facility] Jessee Morton MD IMG CT PROCEDURES Final Re sult Performing Organization Address [facility] Co de Phone Number [email or web address] * Neuro MR Outside Reference (07/12/2024 5:44 PM CDT) Impressions [facility] - 07/12/2024 5:44 PM CDT These images are for Reference purposes only and have not been reviewed by [facility] Radiology. There will be no report generated by a [facility] Radiologist. Narrative [facility] - 07/12/2024 5:44 PM CDT EXAMINATION: Images For Reference Purposes Only Result [facility] Jessee oMrton MD [facility] MRI PROCEDURES Final R esult Performing Organization Address [facility] de Phone Number [email or web address] * Neuro MR Outside Reference (07/12/2024 5:43 PM CDT) Impressions [facility] - 07/12/2024 5:43 PM CDT These images are for Reference purposes only and have not been reviewed by [facility] Radiology. There will be no report generated by a [facility] Radiologist. Narrative [facility] - 07/12/2024 5:43 PM CDT EXAMINATION: Images For Reference Purposes Only Jessee Morton MD IM MRI PROCEDURES Final R esult Performing Organization Address [facility] Co de Phone Number [email or web address] * XR Outside Reference (07/09/2024 8:48 AM CDT) Impressions [facility] - 07/09/2024 8:48 AM CDT These images are for Reference purposes only and have not been reviewed by [facility] Radiology. There will be no report generated by a [facility] Radiologist. Narrative [facility] - 07/09/2024 8:48 AM CDT EXAMINATION: Images For Reference Purposes Only Jessee Morton MD IMG XR PROCEDURES Final Re sult Performing Organization Address [facility] de Phone Number [email or web address] * XR Outside Reference (07/09/2024 8:46 AM CDT) Impressions [facility] - 07/09/2024 8:46 AM CDT These images are for Reference purposes only and have not been reviewed by [facility] Radiology. There will be no report generated by a [facility] Radiologist. Narrative [facility] - 07/09/2024 8:46 AM CDT EXAMINATION: Images For Reference Purposes Only Jessee Morton MD IMG XR PROCEDURES Final Re sult Performing Organization Address [facility] de Phone Number [email or web address] * XR Outside Reference (07/09/2024 8:44 AM CDT) Impressions [facility] - 07/09/2024 8:44 AM CDT These images are for Reference purposes only and have not been reviewed by [facility] Radiology. There will be no report generated by a [facility] Radiologist. Narrative [facility] - 07/09/2024 8:44 AM CDT EXAMINATION: Images For Reference Purposes Only Jessee Morton MD IMG XR PROCEDURES Final Re sult Performing Organization Address [facility] de Phone Number [email or web address] * (ABNORMAL) eGFR [...] MD PhD LAB BLOOD ORDERABLES Final Result [facility] Department [place] [address] * Differential, auto (06/13/2024 5:15 AM CDT) Pathologist [facility] Neutrophil abs 3.2 1.5 - 6.5 K/cumm Imm gran abs 0.0 0.0 - 0.1 K/cumm [facility] Lymphocyte abs 0.9 0.8 - 3.3 K/cumm [facility] Monocyte abs 0.3 0.2 - 0.8 K/cumm [facility] Eosinophil abs 0.2 0.0 - 0.5 K/cumm [facility] Basophil abs 0.0 0.0 - 0.1 K/cumm [facility] Neutrophil pct 69.4 % [facility] Comment: Interpretive Data Percent cell count reference ranges are not reported, since discordance with absolute values may lead to misinterpretation of CBC data. Current Interpretive Data was last revised on 2017. Imm gran pct 0.2 % [facility] Comment: Interpretive Data Percent cell count reference ranges are not reported, since discordance with absolute values may lead to misinterpretation of CBC data. Current Interpretive Data was last revised on 2017. Lymphocyte pct 20.4 % [facility] Comment: Interpretive Data Percent cell count reference ranges are not reported, since discordance with absolute values may lead to misinterpretation of CBC data. Current Interpretive Data was last revised on 2017. Monocyte pct 5.9 % [facility] Comment: Interpretive Data Percent cell count reference ranges are not reported, since discordance with absolute values may lead to misinterpretation of CBC data. Current Interpretive Data was last revised on 2017. Eosinophil pct 3.9 % [facility] Comment: Interpretive Data Percent cell count reference ranges are not reported, since discordance with absolute values may lead to misinterpretation of CBC data. Current Interpretive Data was last revised on 2017. Basophil pct 0.2 % [facility] Comment: Interpretive Data Percent cell count reference ranges are not reported, since discordance with absolute values may lead to misinterpretation of CBC data. Current Interpretive Data was last revised on 2017. Blood 06/13/2024 5:15 AM CDT 06/13/2024 6:05 AM CDT us Martha Butterfield MD LAB BLOOD ORDERABLES F inal Result [facility] Department [place] [address] * Tacrolimus level trough (06/13/2024 5:15 AM CDT) Tacrolimus trough 7.4 ng/mL Comment: Interpretive Data Testing performed by liquid chromatography-tandem mass spectrometry. Therapeutic concentrations vary depending on type of transplanted organ and time elapsed since transplant. Typical trough concentrations range from 5-15 ng/mL. This test was developed and its performance characteristics determined by the [facility] consistent with CLIA requirements. This test has not been cleared or approved by the [place] Food and Drug administration. Current interpretive data last reviewed 2019. Blood 06/13/2024 5:15 AM CDT 06/13/2024 6:05 AM CDT us Patricia Davidson MD PhD LAB BLOOD ORDERABLES Final Result Performing Organization Address [facility] Co de Phone Number [facility] Department [place] [address] * (ABNORMAL) CBC with auto differential (06/13/2024 5:15 AM CDT) WBC 4.6 3.8 - 9.9 K/cumm Hgb 11.1(L) 11.9 - 15.5 g/dL [facility] Hct 32.8(L) 35.6 - 45.5 % [facility] Plt 112(L) 150 - 400 K/cumm [facility] MPV 11.6 9.1 - 12.3 fL [facility] RBC 3.13(L) 3.90 - 5.20 M/cumm [facility] MCV 104.8(H) 81.3 - 96.4 fL [facility] MCH 35.5(H) 27.1 - 33.3 pg [facility] MCHC 33.8 32.3 - 35.7 g/dL [facility] RDW CV 14.8 11.1 - 14.9 % [facility] RDW SD 56.5(H) 35.7 - 48.1 fL [facility] NRBC abs 0.00 0.00 - 0.01 K/cumm [facility] Blood 06/13/2024 5:15 AM CDT 06/13/2024 6:05 AM CDT us Martha Butterfield MD LAB BLOOD ORDERABLES F inal Result Performing Organization Address [facility]/ZIP Co de Phone Number [facility] [place] [address] * (ABNORMAL) Renal function panel (06/13/2024 5:15 AM CDT) Pathologist [facility] Sodium 144 135 - 145 mmol/L Potassium, pl 4.9 3.3 - 4.9 mmol/L [facility] Chloride 111(H) 97 - 110 mmol/L [facility] CO2 25 22 - 32 mmol/L [facility] Anion gap 8 2 - 15 mmol/L [facility] BUN 27(H) 6 - 25 mg/dL [facility] Creatinine 2.03(H) 0.60 - 1.10 mg/dL [facility] Glucose 121 70 - 199 mg/dL [facility] Comment: Interpretive Data Fasting glucose [...] 2022. Calcium 8.6 8.5 - 10.3 mg/dL [facility] Phosphorus, pl 3.9 2.3 - 4.5 mg/dL [facility] Albumin 3.6 3.5 - 5.0 g/dL [facility] Blood 06/13/2024 5:15 AM CDT 06/13/2024 6:05 AM CDT us Patricia Davidson MD PhD LAB BLOOD ORDERABLES Final Result [facility] Department [place] [address] * (ABNORMAL) eGFR (06/12/2024 5:52 AM CDT) [facility] eGFR 29(L) >=60 mL/min/1. 73 m2 Comment: [...] AM CDT 06/12/2024 6:17 AM CDT Patricia Davidsno MD PhD LAB BLOOD ORDERABLES Final Result Performing Organization Address [facility] de Phone Number [facility] Department of [employer] [address] [place] [address] * Tacrolimus level trough (06/12/2024 5:52 AM CDT) [facility] Signature Tacrolimus trough 6.2 ng/mL Comment: Interpretive Data Testing performed by liquid chromatography-tandem mass spectrometry. Therapeutic concentrations vary depending on type of transplanted organ and time elapsed since transplant. Typical trough concentrations range from 5-15 ng/mL. This test was developed and its performance characteristics determined by the [facility] consistent with CLIA requirements. This test has not been cleared or approved by the [place] Food and Drug administration. Current interpretive data last reviewed 2019. Blood 06/12/2024 5:52 AM CDT 06/12/2024 6:18 AM CDT Patricia Davidson MD PhD LAB BLOOD ORDERABLES Final Result Performing Organization Address [facility] Co de Phone Number [facility] [address] [place] [address] * (ABNORMAL) Renal function panel (06/12/2024 5:52 AM CDT) Sodium 145 135 - 145 mmol/L Potassium, pl 5.0(H) 3.3 - 4.9 mmol/L [facility] Chloride 112(H) 97 - 110 mmol/L [facility] CO2 27 22 - 32 mmol/L [facility] Anion gap 6 2 - 15 mmol/L [facility] BUN 30(H) 6 - 25 mg/dL [facility] Creatinine 2.16(H) 0.60 - 1.10 mg/dL [facility] Glucose 101 70 - 199 mg/dL [facility] Comment: Interpretive Data Fasting glucose [...] 2022. Calcium 8.7 8.5 - 10.3 mg/dL [facility] Phosphorus, pl 4.3 2.3 - 4.5 mg/dL [facility] Albumin 3.4(L) 3.5 - 5.0 g/dL [facility] Blood 06/12/2024 5:52 AM CDT 06/12/2024 6:17 AM CDT us Patricia Davidson MD PhD LAB BLOOD ORDERABLES Final Result [facility] Department [place] [address] * Potassium, whole blood (06/11/2024 11:29 PM CDT) Potassium, bld 4.7 3.3 - 4.9 mmol/L Blood 06/11/2024 11:2 9 PM CDT 06/11/2024 11:48 PM CDT us Patrick Hernandez MD LAB BLOOD ORDERABLES Fi nal Result Performing Organization Address City/[facility]/ZIP Co de Phone Number [facility] Department [place] [address] * (ABNORMAL) eGFR (06/11/2024 5:14 AM CDT) Pathologist [facility] eGFR 28(L) >=60 mL/min/1. 73 m2 Comment: [...] MD PhD LAB BLOOD ORDERABLES Final Result [facility] Department [place] [address] * Differential, auto (06/11/2024 5:14 AM CDT) [facility] Neutrophil abs 2.3 1.5 - 6.5 K/cumm Imm gran abs 0.0 0.0 - 0.1 K/cumm [facility] Lymphocyte abs 1.0 0.8 - 3.3 K/cumm [facility] Monocyte abs 0.3 0.2 - 0.8 K/cumm [facility] Eosinophil abs 0.2 0.0 - 0.5 K/cumm [facility] [facility] Basophil abs 0.0 0.0 - 0.1 K/cumm [facility] Neutrophil pct 61.8 % [facility] Comment: Interpretive Data Percent cell count reference ranges are not reported, since discordance with absolute values may lead to misinterpretation of CBC data. Current Interpretive Data was last revised on 2017. Imm gran pct 0.5 % [facility] Comment: Interpretive Data Percent cell count reference ranges are not reported, since discordance with absolute values may lead to misinterpretation of CBC data. Current Interpretive Data was last revised on 2017. Lymphocyte pct 26.6 % [facility] Comment: Interpretive Data Percent cell count reference ranges are not reported, since discordance with absolute values may lead to misinterpretation of CBC data. Current Interpretive Data was last revised on 2017. Monocyte pct 6.6 % [facility] Comment: Interpretive Data Percent cell count reference ranges are not reported, since discordance with absolute values may lead to misinterpretation of CBC data. Current Interpretive Data was last revised on 2017. Eosinophil pct 4.2 % [facility] Comment: Interpretive Data Percent cell count reference ranges are not reported, since discordance with absolute values may lead to misinterpretation of CBC data. Current Interpretive Data was last revised on 2017. Basophil pct 0.3 % [facility] Comment: Interpretive Data Percent cell count reference ranges are not reported, since discordance with absolute values may lead to misinterpretation of CBC data. Current Interpretive Data was last revised on 2017. Blood 06/11/2024 5:14 AM CDT 06/11/2024 6:24 AM CDT us Martha Butterfield MD LAB BLOOD ORDERABLES F inal Result [facility] Department [place] [address] * Tacrolimus level trough (06/11/2024 5:14 AM CDT) [facility] Tacrolimus trough 5.4 ng/mL Comment: Interpretive Data Testing performed by liquid chromatography-tandem mass spectrometry. Therapeutic concentrations vary depending on type of transplanted organ and time elapsed since transplant. Typical trough concentrations range from 5-15 ng/mL. This test was developed and its performance characteristics determined by the [facility] consistent with CLIA requirements. This test has not been cleared or approved by the US Food and Drug administration. Current interpretive data last reviewed 2019. Blood 06/11/2024 5:14 AM CDT 06/11/2024 5:51 AM CDT Patricia Davidson MD PhD LAB BLOOD ORDERABLES Final Result [facility] Department [place] [address] * (ABNORMAL) CBC with auto differential (06/11/2024 5:14 AM CDT) [facility] WBC 3.8 3.8 - 9.9 K/cumm Hgb 10.3(L) 11.9 - 15.5 g/dL [facility] Hct 30.0(L) 35.6 - 45.5 % [facility] Plt 93(L) 150 - 400 K/cumm [facility] MPV 11.5 9.1 - 12.3 fL [facility] RBC 2.82(L) 3.90 - 5.20 M/cumm [facility] MCV 106.4(H) 81.3 - 96.4 fL [facility] MCH 36.5(H) 27.1 - 33.3 pg [facility] MCHC 34.3 32.3 - 35.7 g/dL [facility] RDW CV 14.5 11.1 - 14.9 % [facility] RDW SD 55.4(H) 35.7 - 48.1 fL [facility] NRBC abs 0.00 0.00 - 0.01 K/cumm [facility] Blood 06/11/2024 5:14 AM CDT 06/11/2024 6:24 AM CDT us Martha Butterfield MD LAB BLOOD ORDERABLES F inal Result [facility] Department [place] [address] * (ABNORMAL) Renal function panel (06/11/2024 5:14 AM CDT) Pathologist [facility] Sodium 141 135 - 145 mmol/L Potassium, pl 4.6 3.3 - 4.9 mmol/L [facility] Chloride 109 97 - 110 mmol/L [facility] CO2 23 22 - 32 mmol/L [facility] Anion gap 9 2 - 15 mmol/L [facility] BUN 29(H) 6 - 25 mg/dL [facility] Creatinine 2.24(H) 0.60 - 1.10 mg/dL [facility] Glucose 133 70 - 199 mg/dL [facility] Comment: Interpretive Data Fasting glucose [...] 2022. Calcium 8.6 8.5 - 10.3 mg/dL [facility] Phosphorus, pl 3.8 2.3 - 4.5 mg/dL [facility] Albumin 3.4(L) 3.5 - 5.0 g/dL [facility] Blood 06/11/2024 5:14 AM CDT 06/11/2024 5:51 AM CDT us Patricia Davidson MD PhD LAB BLOOD ORDERABLES Final Result [facility] [address] [place] [address] * Potassium, whole blood (06/10/2024 10:18 PM CDT) Potassium, bld 4.7 3.3 - 4.9 mmol/L Blood 06/10/2024 10:1 8 PM CDT 06/10/2024 11:20 PM CDT Martha Butterfield MD LAB BLOOD ORDERABLES F inal Result Performing Organization Address City/[facility] [place] [address] * POCT glucose (06/10/2024 1:15 PM CDT) Glucose, POC 145 70 - 199 mg/dL Blood 06/10/2024 1:15 PM CDT 06/10/2024 1:15 PM CDT Martha Butterfield MD LAB POCT ORDERABLES - DEVICE Final Result Performing Organization Address [facility]/ZIP Co de Phone Number [facility] [address] [place] [address] * Potassium (06/10/2024 10:34 AM CDT) Potassium, pl 4.7 3.3 - 4.9 mmol/L Blood 06/10/2024 10:3 4 AM CDT 06/10/2024 11:28 AM CDT Martha Butterfield MD LAB BLOOD ORDERABLES F inal Result [facility] [place] [address] * (ABNORMAL) Hepatic function panel (06/10/2024 10:34 AM CDT) [facility] Bilirubin, total 0.7 0.1 - 1.2 mg/dL Bilirubin, direct 0.3 0.1 - 0.3 mg/dL [facility] Protein, pl 6.3(L) 6.5 - 8.5 g/dL [facility] Albumin 3.7 3.5 - 5.0 g/dL [facility] Alk phos 253(H) 40 - 130 Units/L [facility] ALT 23 7 - 45 Units/L [facility] AST 25 10 - 45 Units/L [facility] Blood 06/10/2024 10:3 4 AM CDT 06/10/2024 11:28 AM CDT Martha Butterfield MD LAB BLOOD ORDERABLES F inal Result Performing Organization Address City/[facility]/ZIP Co de Phone Number [facility] Department [place] [address] * POCT glucose (06/10/2024 9:48 AM CDT) [facility] Glucose, POC 157 70 - 199 mg/dL Blood 06/10/2024 9:48 AM CDT 06/10/2024 9:48 AM CDT Martha Butterfield MD LAB POCT ORDERABLES - DEVICE Final Result [facility] [place] [address] * POCT glucose (06/10/2024 6:35 AM CDT) Pathologist [facility] Glucose, POC 137 70 - 199 mg/dL Blood 06/10/2024 6:35 AM CDT 06/10/2024 6:35 AM CDT us Martha Butterfield MD LAB POCT ORDERABLES - DEVICE Final [facility] [place] [address] * (ABNORMAL) Potassium, whole blood (06/10/2024 4:17 AM CDT) Potassium, bld 5.2(H) 3.3 - 4.9 mmol/L Blood 06/10/2024 4:17 AM CDT 06/10/2024 4:24 AM CDT Lyndsey Ramos MD LAB BLOOD ORDERABLES Aniya l Result Performing Organization Address [facility] Co de Phone Number [facility] [place] [address] * (ABNORMAL) eGFR (06/10/2024 4:14 AM CDT) [...] BLOOD ORDERABLES Final Result Performing Organization Address [facility] Co de Phone Number [facility] [place] [address] * Tacrolimus level trough (06/10/2024 4:14 AM CDT) Pathologist [facility] Tacrolimus trough 9.6 ng/mL Comment: Interpretive Data Testing performed by liquid chromatography-tandem mass spectrometry. Therapeutic concentrations vary depending on type of transplanted organ and time elapsed since transplant. Typical trough concentrations range from 5-15 ng/mL. This test was developed and its performance characteristics determined by the [facility] consistent with CLIA requirements. This test has not been cleared or approved by the [place] Food and Drug administration. Current interpretive data last reviewed 2019. Blood 06/10/2024 4:14 AM CDT 06/10/2024 4:32 AM CDT Patricia Davidson MD PhD LAB BLOOD ORDERABLES Final Result Performing Organization Address [facility] Co de Phone Number [facility] [address] [place] [address] * (ABNORMAL) Renal function panel (06/10/2024 4:14 AM CDT) Pathologist [facility] Sodium 142 135 - 145 mmol/L Potassium, pl 5.6(H) 3.3 - 4.9 mmol/L [facility] Comment:Hemolyzed; Potassium value may be falsely elevated by as much as 0.3-0.5 mmol/L. Suggest redraw and reanalysis. Chloride 112(H) 97 - 110 mmol/L [facility] CO2 24 22 - 32 mmol/L [facility] Anion gap 6 2 - 15 mmol/L [facility] BUN 29(H) 6 - 25 mg/dL [facility] Creatinine 2.11(H) 0.60 - 1.10 mg/dL [facility] Glucose 158 70 - 199 mg/dL [facility] Comment: Interpretive Data Fasting glucose [...] 2022. Calcium 9.1 8.5 - 10.3 mg/dL [facility] Phosphorus, pl 3.7 2.3 - 4.5 mg/dL [facility] Albumin 3.6 3.5 - 5.0 g/dL [facility] Blood 06/10/2024 4:14 AM CDT 06/10/2024 4:32 AM CDT us Patricia Davidson MD PhD LAB BLOOD ORDERABLES Final Result Performing Organization Address City/[facility]/ZIP Co de Phone Number [facility] Department [place] [address] * (ABNORMAL) POCT glucose (06/10/2024 2:27 AM CDT) Glucose, POC 210(H) 70 - 199 mg/dL Blood 06/10/2024 2:27 AM CDT 06/10/2024 2:27 AM CDT us Martha Butterfield MD LAB POCT ORDERABLES - DEVICE Final Result [facility] Department of [address] [place] [address] * (ABNORMAL) POCT glucose (06/10/2024 1:25 AM CDT) Glucose, POC 277(H) 70 - 199 mg/dL Blood 06/10/2024 1:25 AM CDT 06/10/2024 1:25 AM CDT Martha Butterfield MD LAB POCT ORDERABLES - DEVICE Final Result Performing Organization Address City/[facility] Co de Phone Number [facility] [place] [address] * POCT glucose (06/10/2024 12:24 AM CDT) Pathologist [facility] Glucose, POC 138 70 - 199 mg/dL Blood 06/10/2024 12:2 4 AM CDT 06/10/2024 12:24 AM CDT Martha Butterfield MD LAB POCT ORDERABLES - DEVICE Final Result Performing Organization Address [facility] de Phone Number [facility] [place] [address] * ECG 12 lead (06/10/2024 12:20 AM CDT) [facility] Ventricular Rate EKG/Min 65 BPM [facility] Atrial Rate 65 BPM [facility] AL-Interval (MSEC) 160 ms [facility] QRS-Interval (MSEC) 72 ms [facility] QT-Interval (MSEC) 452 ms [facility] QTc 470 ms [facility] P Dierks -11 degrees [facility] R Dierks -16 degrees [facility] T Dierks 54 degrees [facility] Diagnosis Normal [...] Septal leads Confirmed by BRODIE LEIGH M.D ([id number]) on 06/11/2024 10:14:44 AM [facility] 06/10/2024 12:2 0 AM CDT 06/11/2024 10:14 AM CDT us Martha Butterfield MD ECG ORDERABLES Final Result [facility] * (ABNORMAL) Potassium, whole blood (06/09/2024 11:26 PM CDT) Potassium, bld 5.7(H) 3.3 - 4.9 mmol/L Blood 06/09/2024 11:2 6 PM CDT 06/09/2024 11:37 PM CDT Martha Butterfield MD LAB BLOOD ORDERABLES F inal Result Performing Organization Address City/[facility] Co de Phone Number [facility] Department [place] [address] * (ABNORMAL) eGFR (06/09/2024 6:33 PM CDT) [...] MD LAB BLOOD ORDERABLES F inal Result [facility] [place] [address] * (ABNORMAL) Renal function panel (06/09/2024 6:33 PM CDT) Sodium 141 135 - 145 mmol/L Potassium, pl 5.5(H) 3.3 - 4.9 mmol/L [facility] Comment:Hemolyzed; Potassium value may be falsely elevated by as much as 0.3-0.5 mmol/L. Suggest redraw and reanalysis. Chloride 112(H) 97 - 110 mmol/L [facility] CO2 17(L) 22 - 32 mmol/L [facility] Anion gap 12 2 - 15 mmol/L [facility] BUN 32(H) 6 - 25 mg/dL [facility] Creatinine 2.08(H) 0.60 - 1.10 mg/dL [facility] Glucose 111 70 - 199 mg/dL [facility] Comment: Interpretive Data Fasting glucose [...] 2022. Calcium 8.7 8.5 - 10.3 mg/dL [facility] Phosphorus, pl 4.0 2.3 - 4.5 mg/dL [facility] Albumin 3.1(L) 3.5 - 5.0 g/dL [facility] Blood 06/09/2024 6:33 PM CDT 06/09/2024 6:48 PM CDT Martha Butterfield MD LAB BLOOD ORDERABLES F inal Result Performing Organization Address [facility]/ZIP Co de Phone Number [facility] Department [place] [address] * (ABNORMAL) eGFR (06/09/2024 5:12 AM CDT) [...] BLOOD ORDERABLES Final Result Performing Organization Address [facility]/ZIP Co de Phone Number [facility] [place] [address] * Differential, auto (06/09/2024 5:12 AM CDT) Neutrophil abs 2.5 1.5 - 6.5 K/cumm Imm gran abs 0.0 0.0 - 0.1 K/cumm [facility] Lymphocyte abs 1.0 0.8 - 3.3 K/cumm [facility] Monocyte abs 0.4 0.2 - 0.8 K/cumm [facility] Eosinophil abs 0.2 0.0 - 0.5 K/cumm [facility] Basophil abs 0.0 0.0 - 0.1 K/cumm [facility] Neutrophil pct 61.7 % [facility] Comment: Interpretive Data Percent cell count reference ranges are not reported, since discordance with absolute values may lead to misinterpretation of CBC data. Current Interpretive Data was last revised on 2017. Imm gran pct 0.2 % [facility] Comment: Interpretive Data Percent cell count reference ranges are not reported, since discordance with absolute values may lead to misinterpretation of CBC data. Current Interpretive Data was last revised on 2017. Lymphocyte pct 25.2 % [facility] Comment: Interpretive Data Percent cell count reference ranges are not reported, since discordance with absolute values may lead to misinterpretation of CBC data. Current Interpretive Data was last revised on 2017. Monocyte pct 8.8 % [facility] Comment: Interpretive Data Percent cell count reference ranges are not reported, since discordance with absolute values may lead to misinterpretation of CBC data. Current Interpretive Data was last revised on 2017. Eosinophil pct 3.9 % [facility] Comment: Interpretive Data Percent cell count reference ranges are not reported, since discordance with absolute values may lead to misinterpretation of CBC data. Current Interpretive Data was last revised on 2017. Basophil pct 0.2 % [facility] Comment: Interpretive Data Percent cell count reference ranges are not reported, since discordance with absolute values may lead to misinterpretation of CBC data. Current Interpretive Data was last revised on 2017. Blood 06/09/2024 5:12 AM CDT 06/09/2024 5:43 AM CDT us Martha Butterfield MD LAB BLOOD ORDERABLES F inal Result [facility] [place] [address] * Tacrolimus level trough (06/09/2024 5:12 AM CDT) Tacrolimus trough 7.5 ng/mL Comment: Interpretive Data Testing performed by liquid chromatography-tandem mass spectrometry. Therapeutic concentrations vary depending on type of transplanted organ and time elapsed since transplant. Typical trough concentrations range from 5-15 ng/mL. This test was developed and its performance characteristics determined by the [facility] consistent with CLIA requirements. This test has not been cleared or approved by the [place] Food and Drug administration. Current interpretive data last reviewed 2019. Blood 06/09/2024 5:12 AM CDT 06/09/2024 5:43 AM CDT us Patricia Davidson MD PhD LAB BLOOD ORDERABLES Final Result [facility] Department [place] [address] * (ABNORMAL) CBC with auto differential (06/09/2024 5:12 AM CDT) [facility] WBC 4.1 3.8 - 9.9 K/cumm Hgb 10.9(L) 11.9 - 15.5 g/dL [facility] Hct 32.1(L) 35.6 - 45.5 % [facility] Plt 104(L) 150 - 400 K/cumm [facility] MPV 11.5 9.1 - 12.3 fL [facility] RBC 3.05(L) 3.90 - 5.20 M/cumm [facility] MCV 105.2(H) 81.3 - 96.4 fL [facility] MCH 35.7(H) 27.1 - 33.3 pg [facility] MCHC 34.0 32.3 - 35.7 g/dL [facility] RDW CV 14.7 11.1 - 14.9 % [facility] RDW SD 55.7(H) 35.7 - 48.1 fL [facility] NRBC abs 0.00 0.00 - 0.01 K/cumm [facility] Blood 06/09/2024 5:12 AM CDT 06/09/2024 5:43 AM CDT us Martha Butterfield MD LAB BLOOD ORDERABLES F inal Result [facility] Department [place] [address] * (ABNORMAL) Renal function panel (06/09/2024 5:12 AM CDT) Sodium 144 135 - 145 mmol/L Potassium, pl 5.1(H) 3.3 - 4.9 mmol/L [facility] Chloride 111(H) 97 - 110 mmol/L [facility] CO2 23 22 - 32 mmol/L [facility] Anion gap 10 2 - 15 mmol/L [facility] BUN 33(H) 6 - 25 mg/dL [facility] Creatinine 2.08(H) 0.60 - 1.10 mg/dL [facility] Glucose 104 70 - 199 mg/dL [facility] Comment: Interpretive Data Fasting glucose [...] 2022. Calcium 8.7 8.5 - 10.3 mg/dL [facility] Phosphorus, pl 4.4 2.3 - 4.5 mg/dL [facility] Albumin 3.5 3.5 - 5.0 g/dL [facility] Blood 06/09/2024 5:12 AM CDT 06/09/2024 5:43 AM CDT us Patricia Davidson MD PhD LAB BLOOD ORDERABLES Final Result [facility] Department [place] [address] * (ABNORMAL) Potassium, whole blood (06/08/2024 8:37 AM CDT) Potassium, bld 5.0(H) 3.3 - 4.9 mmol/L Blood 06/08/2024 8:37 AM CDT 06/08/2024 9:17 AM CDT us Martha Butterfield MD LAB BLOOD ORDERABLES [place] [address] * (ABNORMAL) eGFR (06/08/2024 5:40 AM CDT) Pathologist [facility] eGFR 30(L) [...] MD PhD LAB BLOOD ORDERABLES Final Result [facility] [place] [address] * Tacrolimus level trough (06/08/2024 5:40 AM CDT) Tacrolimus trough 6.6 ng/mL Comment: Interpretive Data Testing performed by liquid chromatography-tandem mass spectrometry. Therapeutic concentrations vary depending on type of transplanted organ and time elapsed since transplant. Typical trough concentrations range from 5-15 ng/mL. This test was developed and its performance characteristics determined by the [facility] consistent with CLIA requirements. This test has not been cleared or approved by the [place] Food and Drug administration. Current interpretive data last reviewed 2019. Blood 06/08/2024 5:40 AM CDT 06/08/2024 6:19 AM CDT Patricia Davidson MD PhD LAB BLOOD ORDERABLES Final Result [facility] [place] [address] * (ABNORMAL) Renal function panel (06/08/2024 5:40 AM CDT) Pathologist [facility] Sodium 144 135 - 145 mmol/L Potassium, pl 5.1(H) 3.3 - 4.9 mmol/L [facility] Chloride 114(H) 97 - 110 mmol/L [facility] CO2 23 22 - 32 mmol/L [facility] Anion gap 7 2 - 15 mmol/L [facility] BUN 31(H) 6 - 25 mg/dL [facility] Creatinine 2.07(H) 0.60 - 1.10 mg/dL [facility] Glucose 100 70 - 199 mg/dL [facility] Comment: Interpretive Data Fasting glucose [...] 2022. Calcium 8.7 8.5 - 10.3 mg/dL [facility] Phosphorus, pl 4.5 2.3 - 4.5 mg/dL [facility] Albumin 3.3(L) 3.5 - 5.0 g/dL [facility] Blood 06/08/2024 5:40 AM CDT 06/08/2024 6:19 AM CDT us Patricia Davidson MD PhD LAB BLOOD ORDERABLES Final Result Performing Organization Address City/State/[facility] Co de Phone Number [facility] Department [place] [address] * (ABNORMAL) eGFR (06/07/2024 5:17 AM CDT) [...] MD PhD LAB BLOOD ORDERABLES Final Result [facility] [place] [address] * Differential, auto (06/07/2024 5:17 AM CDT) Neutrophil abs 2.9 1.5 - 6.5 K/cumm Imm gran abs 0.0 0.0 - 0.1 K/cumm [facility] Lymphocyte abs 1.1 0.8 - 3.3 K/cumm [facility] Monocyte abs 0.3 0.2 - 0.8 K/cumm [facility] Eosinophil abs 0.2 0.0 - 0.5 K/cumm [facility] Basophil abs 0.0 0.0 - 0.1 K/cumm [facility] Neutrophil pct 64.2 % [facility] Comment: Interpretive Data Percent cell count reference ranges are not reported, since discordance with absolute values may lead to misinterpretation of CBC data. Current Interpretive Data was last revised on 2017. Imm gran pct 0.2 % [facility] Comment: Interpretive Data Percent cell count reference ranges are not reported, since discordance with absolute values may lead to misinterpretation of CBC data. Current Interpretive Data was last revised on 2017. Lymphocyte pct 24.2 % [facility] Comment: Interpretive Data Percent cell count reference ranges are not reported, since discordance with absolute values may lead to misinterpretation of CBC data. Current Interpretive Data was last revised on 2017. Monocyte pct 7.2 % [facility] Comment: Interpretive Data Percent cell count reference ranges are not reported, since discordance with absolute values may lead to misinterpretation of CBC data. Current Interpretive Data was last revised on 2017. Eosinophil pct 4.0 % [facility] Comment: Interpretive Data Percent cell count reference ranges are not reported, since discordance with absolute values may lead to misinterpretation of CBC data. Current Interpretive Data was last revised on 2017. Basophil pct 0.2 % [facility] Comment: Interpretive Data Percent cell count reference ranges are not reported, since discordance with absolute values may lead to misinterpretation of CBC data. Current Interpretive Data was last revised on 2017. Blood 06/07/2024 5:17 AM CDT 06/07/2024 6:14 AM CDT Martha Butterfield MD LAB BLOOD ORDERABLES F inal Result Performing Organization Address [facility] Phone Number [facility] [place] [address] * Tacrolimus level trough (06/07/2024 5:17 AM CDT) [facility] Tacrolimus trough 6.2 ng/mL Comment: Interpretive Data Testing performed by liquid chromatography-tandem mass spectrometry. Therapeutic concentrations vary depending on type of transplanted organ and time elapsed since transplant. Typical trough concentrations range from 5-15 ng/mL. This test was developed and its performance characteristics determined by the [facility] consistent with CLIA requirements. This test has not been cleared or approved by the [place] Food and Drug administration. Current interpretive data last reviewed 2019. Blood 06/07/2024 5:17 AM CDT 06/07/2024 6:14 AM CDT Patricia Davidson MD PhD LAB BLOOD ORDERABLES Final Result Performing Organization Address [facility] [place] [address] * (ABNORMAL) CBC with auto differential (06/07/2024 5:17 AM CDT) [facility] WBC 4.5 3.8 - 9.9 K/cumm Hgb 10.7(L) 11.9 - 15.5 g/dL [facility] Hct 31.3(L) 35.6 - 45.5 % [facility] Plt 100(L) 150 - 400 K/cumm [facility] MPV 11.8 9.1 - 12.3 fL [facility] RBC 2.96(L) 3.90 - 5.20 M/cumm [facility] MCV 105.7(H) 81.3 - 96.4 fL [facility] MCH 36.1(H) 27.1 - 33.3 pg [facility] MCHC 34.2 32.3 - 35.7 g/dL [facility] RDW CV 14.2 11.1 - 14.9 % [facility] RDW SD 53.7(H) 35.7 - 48.1 fL [facility] NRBC abs 0.00 0.00 - 0.01 K/cumm [facility] Blood 06/07/2024 5:17 AM CDT 06/07/2024 6:14 AM CDT us Martha Butterfield MD LAB BLOOD ORDERABLES F inal Result [facility] [place] [address] * (ABNORMAL) Renal function panel (06/07/2024 5:17 AM CDT) [facility] Sodium 137 135 - 145 mmol/L Potassium, pl 4.9 3.3 - 4.9 mmol/L [facility] Chloride 108 97 - 110 mmol/L [facility] CO2 21(L) 22 - 32 mmol/L [facility] Anion gap 8 2 - 15 mmol/L [facility] BUN 28(H) 6 - 25 mg/dL [facility] Creatinine 1.92(H) 0.60 - 1.10 mg/dL [facility] Glucose 125 70 - 199 mg/dL [facility] Comment: Interpretive Data Fasting glucose [...] 2022. Calcium 8.1(L) 8.5 - 10.3 mg/dL [facility] Phosphorus, pl 3.8 2.3 - 4.5 mg/dL [facility] Albumin 3.4(L) 3.5 - 5.0 g/dL [facility] Blood 06/07/2024 5:17 AM CDT 06/07/2024 6:13 AM CDT Patricia Davidson MD PhD LAB BLOOD ORDERABLES Final Result Performing Organization Address City/[facility]/ZIP Co de Phone Number [facility] Department [place] [address] * Potassium, whole blood (06/06/2024 11:29 AM CDT) Potassium, bld 4.9 3.3 - 4.9 mmol/L Blood 06/06/2024 11:2 9 AM CDT 06/06/2024 12:20 PM CDT us Martha Butterfield MD LAB BLOOD ORDERABLES F inal Result Performing Organization Address [facility] de Phone Number [facility] Department [place] [address] * (ABNORMAL) eGFR (06/06/2024 4:28 AM CDT) [...] BLOOD ORDERABLES Final Result Performing Organization Address [facility] de Phone Number [facility] [address] [place] [address] * Tacrolimus level trough (06/06/2024 4:28 AM CDT) Pathologist [facility] Tacrolimus trough 5.9 ng/mL Comment: Interpretive Data Testing performed by liquid chromatography-tandem mass spectrometry. Therapeutic concentrations vary depending on type of transplanted organ and time elapsed since transplant. Typical trough concentrations range from 5-15 ng/mL. This test was developed and its performance characteristics determined by the [facility] consistent with CLIA requirements. This test has not been cleared or approved by the [place] Food and Drug administration. Current interpretive data last reviewed 2019. Blood 06/06/2024 4:28 AM CDT 06/06/2024 5:44 AM CDT Patricia Davidson MD PhD LAB BLOOD ORDERABLES Final Result Performing Organization Address [facility] de Phone Number [facility] [place] [address] * (ABNORMAL) Renal function panel (06/06/2024 4:28 AM CDT) Pathologist [facility] Sodium 143 135 - 145 mmol/L Potassium, pl 5.3(H) 3.3 - 4.9 mmol/L [facility] Chloride 113(H) 97 - 110 mmol/L [facility] CO2 23 22 - 32 mmol/L [facility] Anion gap 7 2 - 15 mmol/L [facility] BUN 30(H) 6 - 25 mg/dL [facility] Creatinine 1.99(H) 0.60 - 1.10 mg/dL [facility] Glucose 86 70 - 199 mg/dL [facility] Comment: Interpretive Data Fasting glucose [...] 2022. Calcium 8.5 8.5 - 10.3 mg/dL [facility] Phosphorus, pl 4.1 2.3 - 4.5 mg/dL [facility] Albumin 3.1(L) 3.5 - 5.0 g/dL [facility] Blood 06/06/2024 4:28 AM CDT 06/06/2024 5:36 AM CDT us Patricia Davidson MD PhD LAB BLOOD ORDERABLES Final Result [facility] [place] [address] * (ABNORMAL) eGFR (06/05/2024 5:49 AM CDT) [...] MD PhD LAB BLOOD ORDERABLES Final Result [facility] [place] [address] * Differential, auto (06/05/2024 5:49 AM CDT) Neutrophil abs 2.5 1.5 - 6.5 K/cumm Imm gran abs 0.0 0.0 - 0.1 K/cumm [facility] Lymphocyte abs 1.0 0.8 - 3.3 K/cumm [facility] Monocyte abs 0.4 0.2 - 0.8 K/cumm [facility] Eosinophil abs 0.1 0.0 - 0.5 K/cumm [facility] Basophil abs 0.0 0.0 - 0.1 K/cumm [facility] Neutrophil pct 62.5 % [facility] Comment: Interpretive Data Percent cell count reference ranges are not reported, since discordance with absolute values may lead to misinterpretation of CBC data. Current Interpretive Data was last revised on 2017. Imm gran pct 0.3 % [facility] Comment: Interpretive Data Percent cell count reference ranges are not reported, since discordance with absolute values may lead to misinterpretation of CBC data. Current Interpretive Data was last revised on 2017. Lymphocyte pct 24.3 % [facility] Comment: Interpretive Data Percent cell count reference ranges are not reported, since discordance with absolute values may lead to misinterpretation of CBC data. Current Interpretive Data was last revised on 2017. Monocyte pct 9.3 % [facility] Comment: Interpretive Data Percent cell count reference ranges are not reported, since discordance with absolute values may lead to misinterpretation of CBC data. Current Interpretive Data was last revised on 2017. Eosinophil pct 3.3 % [facility] Comment: Interpretive Data Percent cell count reference ranges are not reported, since discordance with absolute values may lead to misinterpretation of CBC data. Current Interpretive Data was last revised on 2017. Basophil pct 0.3 % [facility] Comment: Interpretive Data Percent cell count reference ranges are not reported, since discordance with absolute values may lead to misinterpretation of CBC data. Current Interpretive Data was last revised on 2017. Blood 06/05/2024 5:49 AM CDT 06/05/2024 6:48 AM CDT Patricia Davidson MD PhD LAB BLOOD ORDERABLES Final Result Performing Organization Address [facility] de Phone Number [facility] Department of [address] [place] [address] * Tacrolimus level trough (06/05/2024 5:49 AM CDT) [facility] Signature Tacrolimus trough 5.9 ng/mL Comment: Interpretive Data Testing performed by liquid chromatography-tandem mass spectrometry. Therapeutic concentrations vary depending on type of transplanted organ and time elapsed since transplant. Typical trough concentrations range from 5-15 ng/mL. This test was developed and its performance characteristics determined by the [facility] consistent with CLIA requirements. This test has not been cleared or approved by the [place] Food and Drug administration. Current interpretive data last reviewed 2019. Blood 06/05/2024 5:49 AM CDT 06/05/2024 6:48 AM CDT Patricia Davidson MD PhD LAB BLOOD ORDERABLES Final Result Performing Organization Address [facility] Co de Phone Number [facility] Department [place] [address] * (ABNORMAL) CBC with auto differential (06/05/2024 5:49 AM CDT) [facility] WBC 4.0 3.8 - 9.9 K/cumm Hgb 10.9(L) 11.9 - 15.5 g/dL [facility] Hct 31.7(L) 35.6 - 45.5 % [facility] Plt 102(L) 150 - 400 K/cumm [facility] MPV 11.6 9.1 - 12.3 fL [facility] RBC 3.05(L) 3.90 - 5.20 M/cumm [facility] MCV 103.9(H) 81.3 - 96.4 fL [facility] MCH 35.7(H) 27.1 - 33.3 pg [facility] MCHC 34.4 32.3 - 35.7 g/dL [facility] RDW CV 14.0 11.1 - 14.9 % [facility] RDW SD 52.3(H) 35.7 - 48.1 fL [facility] NRBC abs 0.00 0.00 - 0.01 K/cumm [facility] Blood 06/05/2024 5:49 AM CDT 06/05/2024 6:48 AM CDT us Patricia Davidson MD PhD LAB BLOOD ORDERABLES Final Result [facility] [place] [address] * (ABNORMAL) Renal function panel (06/05/2024 5:49 AM CDT) [facility] Sodium 140 135 - 145 mmol/L Potassium, pl 4.6 3.3 - 4.9 mmol/L [facility] Chloride 109 97 - 110 mmol/L [facility] CO2 22 22 - 32 mmol/L [facility] Anion gap 9 2 - 15 mmol/L [facility] BUN 29(H) 6 - 25 mg/dL [facility] Creatinine 1.99(H) 0.60 - 1.10 mg/dL [facility] Glucose 98 70 - 199 mg/dL [facility] Comment: Interpretive Data Fasting glucose [...] 2022. Calcium 8.6 8.5 - 10.3 mg/dL [facility] Phosphorus, pl 4.3 2.3 - 4.5 mg/dL [facility] Albumin 3.5 3.5 - 5.0 g/dL [facility] Blood 06/05/2024 5:49 AM CDT 06/05/2024 6:48 AM CDT us Patricia Davidson MD PhD LAB BLOOD ORDERABLES Final Result [facility] [place] [address] * ECG 12 lead (06/04/2024 5:41 AM CDT) Ventricular Rate EKG/Min 67 BPM [facility] Atrial Rate 67 BPM [facility] AL-Interval (MSEC) 202 ms [facility] QRS-Interval (MSEC) 74 ms [facility] QT-Interval (MSEC) 426 ms [facility] QTc 450 ms [facility] P Dierks 5 degrees [facility] R Dierks -19 degrees [facility] T Dierks 53 degrees [facility] Diagnosis Normal sinus rhythm 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 * (ABNORMAL) eGFR (06/04/2024 5:10 AM [...] BLOOD ORDERABLES Final Result Performing Organization Address City/[facility]/ZIP Co de Phone Number [facility] [place] [address] * Differential, auto (06/04/2024 5:10 AM CDT) Neutrophil abs 3.1 1.5 - 6.5 K/cumm Imm gran abs 0.0 0.0 - 0.1 K/cumm [facility] Lymphocyte abs 1.3 0.8 - 3.3 K/cumm [facility] Monocyte abs 0.5 0.2 - 0.8 K/cumm [facility] Eosinophil abs 0.2 0.0 - 0.5 K/cumm [facility] Basophil abs 0.0 0.0 - 0.1 K/cumm [facility] Neutrophil pct 61.7 % [facility] Comment: Interpretive Data Percent cell count reference ranges are not reported, since discordance with absolute values may lead to misinterpretation of CBC data. Current Interpretive Data was last revised on 2017. Imm gran pct 0.4 % [facility] Comment: Interpretive Data Percent cell count reference ranges are not reported, since discordance with absolute values may lead to misinterpretation of CBC data. Current Interpretive Data was last revised on 2017. Lymphocyte pct 25.2 % [facility] Comment: Interpretive Data Percent cell count reference ranges are not reported, since discordance with absolute values may lead to misinterpretation of CBC data. Current Interpretive Data was last revised on 2017. Monocyte pct 9.1 % [facility] Comment: Interpretive Data Percent cell count reference ranges are not reported, since discordance with absolute values may lead to misinterpretation of CBC data. Current Interpretive Data was last revised on 2017. Eosinophil pct 3.0 % [facility] Comment: Interpretive Data Percent cell count reference ranges are not reported, since discordance with absolute values may lead to misinterpretation of CBC data. Current Interpretive Data was last revised on 2017. Basophil pct 0.6 % [facility] Comment: Interpretive Data Percent cell count reference ranges are not reported, since discordance with absolute values may lead to misinterpretation of CBC data. Current Interpretive Data was last revised on 2017. Blood 06/04/2024 5:10 AM CDT 06/04/2024 6:22 AM CDT us Patricia Davidson MD PhD LAB BLOOD ORDERABLES Final Result [facility] [place] [address] * Tacrolimus level trough (06/04/2024 5:10 AM CDT) Pathologist [facility] Tacrolimus trough 6.1 ng/mL Comment: Interpretive Data Testing performed by liquid chromatography-tandem mass spectrometry. Therapeutic concentrations vary depending on type of transplanted organ and time elapsed since transplant. Typical trough concentrations range from 5-15 ng/mL. This test was developed and its performance characteristics determined by the [facility] consistent with CLIA requirements. This test has not been cleared or approved by the [place] Food and Drug administration. Current interpretive data last reviewed 2019. Blood 06/04/2024 5:10 AM CDT 06/04/2024 6:22 AM CDT us Patricia Davidson MD PhD LAB BLOOD ORDERABLES Final Result [facility] [place] [address] * (ABNORMAL) CBC with auto differential (06/04/2024 5:10 AM CDT) WBC 5.0 3.8 - 9.9 K/cumm Hgb 11.2(L) 11.9 - 15.5 g/dL [facility] Hct 32.3(L) 35.6 - 45.5 % [facility] Plt 102(L) 150 - 400 K/cumm [facility] MPV 11.6 9.1 - 12.3 fL [facility] RBC 3.13(L) 3.90 - 5.20 M/cumm [facility] MCV 103.2(H) 81.3 - 96.4 fL [facility] MCH 35.8(H) 27.1 - 33.3 pg [facility] MCHC 34.7 32.3 - 35.7 g/dL [facility] RDW CV 13.7 11.1 - 14.9 % [facility] RDW SD 51.2(H) 35.7 - 48.1 fL [facility] NRBC abs 0.00 0.00 - 0.01 K/cumm [facility] Blood 06/04/2024 5:10 AM CDT 06/04/2024 6:22 AM CDT us Patricia Davidson MD PhD LAB BLOOD ORDERABLES Final Result [facility] Department of [address] [place] [address] * (ABNORMAL) Renal function panel (06/04/2024 5:10 AM CDT) Sodium 144 135 - 145 mmol/L Potassium, pl 4.8 3.3 - 4.9 mmol/L [facility] Chloride 112(H) 97 - 110 mmol/L [facility] CO2 23 22 - 32 mmol/L [facility] Anion gap 9 2 - 15 mmol/L [facility] BUN 25 6 - 25 mg/dL [facility] Creatinine 1.98(H) 0.60 - 1.10 mg/dL [facility] Glucose 81 70 - 199 mg/dL [facility] Comment: Interpretive Data Fasting glucose [...] 2022. Calcium 8.9 8.5 - 10.3 mg/dL [facility] Phosphorus, pl 4.3 2.3 - 4.5 mg/dL [facility] Albumin 3.4(L) 3.5 - 5.0 g/dL [facility] Blood 06/04/2024 5:10 AM CDT 06/04/2024 6:23 AM CDT Patricia Davidson MD PhD LAB BLOOD ORDERABLES Final Result [facility] Department [facility] [address] [place] [address] * Folate (06/04/2024 12:39 AM CDT) Pathologist [facility] Folic acid See Comment >=5.0 ng/mL Comment: Credited; Hemolyzed Specimen Telephone report made to: Luz Maria Iyer RN on 06/04/2024 08:49:44 CDT by SAUD . Blood 06/04/2024 12:3 9 AM CDT 06/04/2024 1:24 AM CDT Shea Babcock MD LAB BLOOD ORDERABLE S Final Result Performing Organization Address City/[facility]/ZIP Co de Phone Number [facility] Department of [address] [place] [address] * Protein / creatinine ratio, urine, random (06/03/2024 6:15 PM CDT) [facility] Protein, ur, quant <5.0 mg/dL Comment: Interpretive Data No reference range established. Current interpretive data was last revised 2018. Creatinine Ur 39.1 mg/dL [facility] Comment: Interpretive Data No reference range established. Current interpretive data was last revised 2018. Protein/creatinin e ratio <127.9 0.0 - 180.0 mg/g CR [facility] Urine 06/03/2024 6:15 PM CDT 06/03/2024 7:42 PM CDT Pineda Barrios MD LAB URINE ORDE RABLES Final Result Performing Organization Address City/[facility]/ZIP Co de Phone Number [facility] Department [place] [address] * (ABNORMAL) eGFR (06/03/2024 8:54 AM CDT) [facility] eGFR 33(L) >=60 mL/min/1. 73 m2 Comment: [...] MD PhD LAB BLOOD ORDERABLES Final Result [facility] [place] [address] * Differential, auto (06/03/2024 8:54 AM CDT) Neutrophil abs 2.8 1.5 - 6.5 K/cumm Imm gran abs 0.0 0.0 - 0.1 K/cumm [facility] Lymphocyte abs 1.3 0.8 - 3.3 K/cumm [facility] Monocyte abs 0.4 0.2 - 0.8 K/cumm [facility] Eosinophil abs 0.2 0.0 - 0.5 K/cumm [facility] Basophil abs 0.0 0.0 - 0.1 K/cumm [facility] Neutrophil pct 59.1 % [facility] Comment: Interpretive Data Percent cell count reference ranges are not reported, since discordance with absolute values may lead to misinterpretation of CBC data. Current Interpretive Data was last revised on 2017. Imm gran pct 0.4 % [facility] Comment: Interpretive Data Percent cell count reference ranges are not reported, since discordance with absolute values may lead to misinterpretation of CBC data. Current Interpretive Data was last revised on 2017. Lymphocyte pct 27.4 % [facility] Comment: Interpretive Data Percent cell count reference ranges are not reported, since discordance with absolute values may lead to misinterpretation of CBC data. Current Interpretive Data was last revised on 2017. Monocyte pct 9.1 % [facility] Comment: Interpretive Data Percent cell count reference ranges are not reported, since discordance with absolute values may lead to misinterpretation of CBC data. Current Interpretive Data was last revised on 2017. Eosinophil pct 3.8 % [facility] Comment: Interpretive Data Percent cell count reference ranges are not reported, since discordance with absolute values may lead to misinterpretation of CBC data. Current Interpretive Data was last revised on 2017. Basophil pct 0.2 % [facility] Comment: Interpretive Data Percent cell count reference ranges are not reported, since discordance with absolute values may lead to misinterpretation of CBC data. Current Interpretive Data was last revised on 2017. Blood 06/03/2024 8:54 AM CDT 06/03/2024 9:23 AM CDT us Patricia Davidson MD PhD LAB BLOOD ORDERABLES Final Result [facility] [place] [address] * Tacrolimus level trough (06/03/2024 8:54 AM CDT) [facility] Signature Tacrolimus trough 4.9 ng/mL Comment: Interpretive Data Testing performed by liquid chromatography-tandem mass spectrometry. Therapeutic concentrations vary depending on type of transplanted organ and time elapsed since transplant. Typical trough concentrations range from 5-15 ng/mL. This test was developed and its performance characteristics determined by the [facility] consistent with CLIA requirements. This test has not been cleared or approved by the [place] Food and Drug administration. Current interpretive data last reviewed 2019. Blood 06/03/2024 8:54 AM CDT 06/03/2024 9:22 AM CDT us Patricia Davidson MD PhD LAB BLOOD ORDERABLES Final Result [facility] Department [place] [address] * (ABNORMAL) CBC with auto differential (06/03/2024 8:54 AM CDT) WBC 4.7 3.8 - 9.9 K/cumm Hgb 11.6(L) 11.9 - 15.5 g/dL [facility] Hct 32.6(L) 35.6 - 45.5 % [facility] Plt 121(L) 150 - 400 K/cumm [facility] MPV 11.0 9.1 - 12.3 fL [facility] RBC 3.19(L) 3.90 - 5.20 M/cumm [facility] MCV 102.2(H) 81.3 - 96.4 fL [facility] MCH 36.4(H) 27.1 - 33.3 pg [facility] MCHC 35.6 32.3 - 35.7 g/dL [facility] RDW CV 13.5 11.1 - 14.9 % [facility] RDW SD 49.6(H) 35.7 - 48.1 fL [facility] NRBC abs 0.00 0.00 - 0.01 K/cumm [facility] Blood 06/03/2024 8:54 AM CDT 06/03/2024 9:23 AM CDT us Patricia Davidson MD PhD LAB BLOOD ORDERABLES Final Result [facility] [place] [address] * CRP (acute phase) (06/03/2024 8:54 AM CDT) CRP 6.5 <=10.0 mg/L Blood 06/03/2024 8:54 AM CDT 06/03/2024 9:25 AM CDT us Pnieda Barrios MD LAB BLOOD ORDE COURTNEY Final Result [facility] Department [place] [address] * (ABNORMAL) Renal function panel (06/03/2024 8:54 AM CDT) Pathologist [facility] Sodium 143 135 - 145 mmol/L Potassium, pl 4.6 3.3 - 4.9 mmol/L [facility] Chloride 110 97 - 110 mmol/L [facility] CO2 23 22 - 32 mmol/L [facility] Anion gap 10 2 - 15 mmol/L [facility] BUN 21 6 - 25 mg/dL [facility] Creatinine 1.93(H) 0.60 - 1.10 mg/dL [facility] Glucose 125 70 - 199 mg/dL [facility] Comment: Interpretive Data Fasting glucose [...] 2022. Calcium 9.1 8.5 - 10.3 mg/dL [facility] Phosphorus, pl 3.5 2.3 - 4.5 mg/dL [facility] Albumin 3.5 3.5 - 5.0 g/dL [facility] Blood 06/03/2024 8:54 AM CDT 06/03/2024 9:25 AM CDT us Patricia Davidson MD PhD LAB BLOOD ORDERABLES Final Result [facility] [place] [address] * (ABNORMAL) eGFR (06/03/2024 2:22 AM CDT) [...] MD LAB BLOOD [place] Final Result [facility] [place] [address] * Differential, auto (06/03/2024 2:22 AM CDT) Pathologist [facility] Neutrophil abs 2.5 1.5 - 6.5 K/cumm Imm gran abs 0.0 0.0 - 0.1 K/cumm [facility] Lymphocyte abs 1.2 0.8 - 3.3 K/cumm [facility] Monocyte abs 0.4 0.2 - 0.8 K/cumm [facility] Eosinophil abs 0.1 0.0 - 0.5 K/cumm [facility] Basophil abs 0.0 0.0 - 0.1 K/cumm [facility] Neutrophil pct 58.3 % [facility] Comment: Interpretive Data Percent cell count reference ranges are not reported, since discordance with absolute values may lead to misinterpretation of CBC data. Current Interpretive Data was last revised on 2017. Imm gran pct 0.5 % [facility] Comment: Interpretive Data Percent cell count reference ranges are not reported, since discordance with absolute values may lead to misinterpretation of CBC data. Current Interpretive Data was last revised on 2017. Lymphocyte pct 28.7 % [facility] Comment: Interpretive Data Percent cell count reference ranges are not reported, since discordance with absolute values may lead to misinterpretation of CBC data. Current Interpretive Data was last revised on 2017. Monocyte pct 9.2 % [facility] Comment: Interpretive Data Percent cell count reference ranges are not reported, since discordance with absolute values may lead to misinterpretation of CBC data. Current Interpretive Data was last revised on 2017. Eosinophil pct 3.1 % [facility] Comment: Interpretive Data Percent cell count reference ranges are not reported, since discordance with absolute values may lead to misinterpretation of CBC data. Current Interpretive Data was last revised on 2017. Basophil pct 0.2 % [facility] Comment: Interpretive Data Percent cell count reference ranges are not reported, since discordance with absolute values may lead to misinterpretation of CBC data. Current Interpretive Data was last revised on 2017. Blood 06/03/2024 2:22 AM CDT 06/03/2024 2:57 AM CDT Pineda Barrios MD LAB BLOOD RICO VALDEZ Final Result [facility] [place] [address] * (ABNORMAL) Iron profile w/ IBC (06/03/2024 2:22 AM CDT) Iron 104 35 - 145 mcg/dL TIBC 192(L) 250 - 400 mcg/dL [facility] Transferrin saturation 54(H) 20 - 50 % [facility] Blood 06/03/2024 2:22 AM CDT 06/03/2024 2:57 AM CDT us Shea Babcock MD LAB BLOOD ORDERABLE S Final Result Performing Organization Address City/[facility]/ZIP Co de Phone Number [facility] Department [place] [address] * (ABNORMAL) CBC with auto differential (06/03/2024 2:22 AM CDT) Pathologist [facility] WBC 4.2 3.8 - 9.9 K/cumm Hgb 11.5(L) 11.9 - 15.5 g/dL [facility] Hct 32.9(L) 35.6 - 45.5 % [facility] Plt 120(L) 150 - 400 K/cumm [facility] MPV 11.2 9.1 - 12.3 fL [facility] RBC 3.24(L) 3.90 - 5.20 M/cumm [facility] MCV 101.5(H) 81.3 - 96.4 fL [facility] MCH 35.5(H) 27.1 - 33.3 pg [facility] MCHC 35.0 32.3 - 35.7 g/dL [facility] RDW CV 13.4 11.1 - 14.9 % [facility] RDW SD 49.9(H) 35.7 - 48.1 fL [facility] NRBC abs 0.00 0.00 - 0.01 K/cumm [facility] Blood 06/03/2024 2:22 AM CDT 06/03/2024 2:57 AM CDT us Pineda Barrios MD LAB BLOOD RICO VALDEZ Final Result [facility] Department [place] [address] * Tacrolimus level random (06/03/2024 2:22 AM CDT) Tacrolimus random 6.3 ng/mL Comment: Interpretive Data Testing performed by liquid chromatography-tandem mass spectrometry. Therapeutic concentrations vary depending on type of transplanted organ and time elapsed since transplant. Typical trough concentrations range from 5-15 ng/mL. This test was developed and its performance characteristics determined by the [facility] consistent with CLIA requirements. This test has not been cleared or approved by the [place] Food and Drug administration. Current interpretive data last reviewed 2019. Blood 06/03/2024 2:22 AM CDT 06/03/2024 2:57 AM CDT Pineda Barrios MD LAB BLOOD ORDXavier VALDEZ Final Result Performing Organization Address City/[facility]/ZIP Co de Phone Number [facility] Department [place] [address] * TSH (06/03/2024 2:22 AM CDT) Thyroid Stimulating Hormone 1.91 0.30 - 4.20 mcIUnit/mL Blood 06/03/2024 2:22 AM CDT 06/03/2024 2:57 AM CDT Shea Babcock MD LAB BLOOD ORDERABLE S Final Result [facility] Department [place] [address] * (ABNORMAL) Ferritin (06/03/2024 2:22 AM CDT) Ferritin 213(H) 13 - 150 ng/mL Blood 06/03/2024 2:22 AM CDT 06/03/2024 2:57 AM CDT Shea Babcock MD LAB BLOOD ORDERABLE S Final Result [facility] [place] [address] * Vitamin B12 (06/03/2024 2:22 AM CDT) Pathologist [facility] Vitamin B12 749 230 - 1,250 pg/mL Blood 06/03/2024 2:22 AM CDT 06/03/2024 2:57 AM CDT Shea Babcock MD LAB BLOOD ORDERABLE S Final Result Performing Organization Address [facility] Co de Phone Number [facility] Department [place] [address] * (ABNORMAL) Renal function panel (06/03/2024 2:22 AM CDT) [facility] Sodium 144 135 - 145 mmol/L Potassium, pl 5.0(H) 3.3 - 4.9 mmol/L [facility] Chloride 111(H) 97 - 110 mmol/L [facility] CO2 25 22 - 32 mmol/L [facility] Anion gap 8 2 - 15 mmol/L [facility] BUN 23 6 - 25 mg/dL [facility] Creatinine 1.86(H) 0.60 - 1.10 mg/dL [facility] Glucose 102 70 - 199 mg/dL [facility] Comment: Interpretive Data Fasting glucose [...] 2022. Calcium 9.2 8.5 - 10.3 mg/dL [facility] Phosphorus, pl 3.1 2.3 - 4.5 mg/dL [facility] Albumin 3.8 3.5 - 5.0 g/dL [facility] Blood 06/03/2024 2:22 AM CDT 06/03/2024 2:57 AM CDT Pineda Barrios MD LAB BLOOD ORDE RABLES Final Result Performing Organization Address City/[facility]/ZIP Co de Phone Number [facility] Department of [address] [place] [address] * (ABNORMAL) eGFR (06/02/2024 8:43 AM CDT) [...] BLOOD ORDERABLES Final Result Performing Organization Address City/[facility]/ZIP Co de Phone Number [facility] Department [place] [address] * Differential, auto (06/02/2024 8:43 AM CDT) Neutrophil abs 2.3 1.5 - 6.5 K/cumm Imm gran abs 0.0 0.0 - 0.1 K/cumm [facility] Lymphocyte abs 1.3 0.8 - 3.3 K/cumm [facility] Monocyte abs 0.4 0.2 - 0.8 K/cumm [facility] Eosinophil abs 0.1 0.0 - 0.5 K/cumm [facility] Basophil abs 0.0 0.0 - 0.1 K/cumm [facility] Neutrophil pct 55.6 % [facility] Comment: Interpretive Data Percent cell count reference ranges are not reported, since discordance with absolute values may lead to misinterpretation of CBC data. Current Interpretive Data was last revised on 2017. Imm gran pct 0.2 % [facility] Comment: Interpretive Data Percent cell count reference ranges are not reported, since discordance with absolute values may lead to misinterpretation of CBC data. Current Interpretive Data was last revised on 2017. Lymphocyte pct 30.7 % [facility] Comment: Interpretive Data Percent cell count reference ranges are not reported, since discordance with absolute values may lead to misinterpretation of CBC data. Current Interpretive Data was last revised on 2017. Monocyte pct 10.1 % [facility] Comment: Interpretive Data Percent cell count reference ranges are not reported, since discordance with absolute values may lead to misinterpretation of CBC data. Current Interpretive Data was last revised on 2017. Eosinophil pct 3.2 % [facility] Comment: Interpretive Data Percent cell count reference ranges are not reported, since discordance with absolute values may lead to misinterpretation of CBC data. Current Interpretive Data was last revised on 2017. Basophil pct 0.2 % [facility] Comment: Interpretive Data Percent cell count reference ranges are not reported, since discordance with absolute values may lead to misinterpretation of CBC data. Current Interpretive Data was last revised on 2017. Blood 06/02/2024 8:43 AM CDT 06/02/2024 9:14 AM CDT Patricia Davidson MD PhD LAB BLOOD ORDERABLES Final Result Performing Organization Address [facility] de Phone Number [facility] [place] [address] * Tacrolimus level trough (06/02/2024 8:43 AM CDT) [facility] Tacrolimus trough 3.8 ng/mL Comment: Interpretive Data Testing performed by liquid chromatography-tandem mass spectrometry. Therapeutic concentrations vary depending on type of transplanted organ and time elapsed since transplant. Typical trough concentrations range from 5-15 ng/mL. This test was developed and its performance characteristics determined by the [facility] consistent with CLIA requirements. This test has not been cleared or approved by the [place] Food and Drug administration. Current interpretive data last reviewed 2019. Blood 06/02/2024 8:43 AM CDT 06/02/2024 9:14 AM CDT Patricia Davidson MD PhD LAB BLOOD ORDERABLES Final Result Performing Organization Address [facility] Co de Phone Number [facility] [address] [place] [address] * (ABNORMAL) CBC with auto differential (06/02/2024 8:43 AM CDT) [facility] WBC 4.1 3.8 - 9.9 K/cumm Hgb 10.8(L) 11.9 - 15.5 g/dL [facility] Hct 30.5(L) 35.6 - 45.5 % [facility] Plt 105(L) 150 - 400 K/cumm [facility] MPV 11.6 9.1 - 12.3 fL [facility] RBC 3.03(L) 3.90 - 5.20 M/cumm [facility] MCV 100.7(H) 81.3 - 96.4 fL [facility] MCH 35.6(H) 27.1 - 33.3 pg [facility] MCHC 35.4 32.3 - 35.7 g/dL [facility] RDW CV 13.3 11.1 - 14.9 % [facility] RDW SD 48.2(H) 35.7 - 48.1 fL [facility] NRBC abs 0.00 0.00 - 0.01 K/cumm [facility] Blood 06/02/2024 8:43 AM CDT 06/02/2024 9:14 AM CDT us Patricia Davidson MD PhD LAB BLOOD ORDERABLES Final Result [facility] Department [place] [address] * (ABNORMAL) Renal function panel (06/02/2024 8:43 AM CDT) Sodium 143 135 - 145 mmol/L Potassium, pl 5.1(H) 3.3 - 4.9 mmol/L [facility] Comment:Hemolyzed; Potassium value may be falsely elevated by as much as 0.3-0.5 mmol/L. Suggest redraw and reanalysis. Chloride 111(H) 97 - 110 mmol/L [facility] CO2 26 22 - 32 mmol/L [facility] Anion gap 6 2 - 15 mmol/L [facility] BUN 22 6 - 25 mg/dL [facility] Creatinine 1.93(H) 0.60 - 1.10 mg/dL [facility] Glucose 108 70 - 199 mg/dL [facility] Comment: Interpretive Data Fasting glucose [...] 2022. Calcium 8.8 8.5 - 10.3 mg/dL [facility] Phosphorus, pl 3.5 2.3 - 4.5 mg/dL [facility] Albumin 3.4(L) 3.5 - 5.0 g/dL [facility] Blood 06/02/2024 8:43 AM CDT 06/02/2024 9:14 AM CDT us Patricia Davidson MD PhD LAB BLOOD ORDERABLES Final Result [facility] Department [place] [address] * Immunoglobulin profile (06/01/2024 9:10 PM CDT) Pathologist [facility] Immunoglobulin G 882 700 - 1,600 mg/dL Immunoglobulin A 213 70 - 400 mg/dL [facility] Immunoglobulin M 92 40 - 230 mg/dL [facility] Blood 06/01/2024 9:10 PM CDT 06/01/2024 10:48 PM CDT us Pineda Barrios MD LAB BLOOD ORDE RABLES Final Result [facility] [place] [address] * Differential, auto (06/01/2024 10:03 AM CDT) Neutrophil abs 3.5 1.5 - 6.5 K/cumm Imm gran abs 0.0 0.0 - 0.1 K/cumm [facility] Lymphocyte abs 1.3 0.8 - 3.3 K/cumm [facility] Monocyte abs 0.4 0.2 - 0.8 K/cumm [facility] Eosinophil abs 0.2 0.0 - 0.5 K/cumm [facility] Basophil abs 0.0 0.0 - 0.1 K/cumm [facility] Neutrophil pct 65.5 % [facility] Comment: Interpretive Data Percent cell count reference ranges are not reported, since discordance with absolute values may lead to misinterpretation of CBC data. Current Interpretive Data was last revised on 2017. Imm gran pct 0.2 % [facility] Comment: Interpretive Data Percent cell count reference ranges are not reported, since discordance with absolute values may lead to misinterpretation of CBC data. Current Interpretive Data was last revised on 2017. Lymphocyte pct 23.6 % [facility] Comment: Interpretive Data Percent cell count reference ranges are not reported, since discordance with absolute values may lead to misinterpretation of CBC data. Current Interpretive Data was last revised on 2017. Monocyte pct 7.7 % [facility] Comment: Interpretive Data Percent cell count reference ranges are not reported, since discordance with absolute values may lead to misinterpretation of CBC data. Current Interpretive Data was last revised on 2017. Eosinophil pct 2.8 % [facility] Comment: Interpretive Data Percent cell count reference ranges are not reported, since discordance with absolute values may lead to misinterpretation of CBC data. Current Interpretive Data was last revised on 2017. Basophil pct 0.2 % [facility] Comment: Interpretive Data Percent cell count reference ranges are not reported, since discordance with absolute values may lead to misinterpretation of CBC data. Current Interpretive Data was last revised on 2017. Blood 06/01/2024 10:0 3 AM CDT 06/01/2024 10:19 AM CDT us Patricia Davidson MD PhD LAB BLOOD ORDERABLES Final Result [facility] [place] [address] * (ABNORMAL) CBC with auto differential (06/01/2024 10:03 AM CDT) WBC 5.3 3.8 - 9.9 K/cumm Hgb 12.1 11.9 - 15.5 g/dL [facility] Hct 34.0(L) 35.6 - 45.5 % [facility] Plt 98(L) 150 - 400 K/cumm [facility] MPV 11.6 9.1 - 12.3 fL [facility] RBC 3.44(L) 3.90 - 5.20 M/cumm [facility] MCV 98.8(H) 81.3 - 96.4 fL [facility] MCH 35.2(H) 27.1 - 33.3 pg [facility] MCHC 35.6 32.3 - 35.7 g/dL [facility] RDW CV 12.8 11.1 - 14.9 % [facility] RDW SD 45.8 35.7 - 48.1 fL [facility] NRBC abs 0.00 0.00 - 0.01 K/cumm [facility] Blood 06/01/2024 10:0 3 AM CDT 06/01/2024 10:19 AM CDT Patricia Davidson MD PhD LAB BLOOD ORDERABLES Final Result Performing Organization Address [facility] de Phone Number [facility] [address] [place] [address] * Tacrolimus level trough (06/01/2024 9:20 AM CDT) [facility] Tacrolimus trough 6.5 ng/mL Comment: Interpretive Data Testing performed by liquid chromatography-tandem mass spectrometry. Therapeutic concentrations vary depending on type of transplanted organ and time elapsed since transplant. Typical trough concentrations range from 5-15 ng/mL. This test was developed and its performance characteristics determined by the [facility] consistent with CLIA requirements. This test has not been cleared or approved by the [place] Food and Drug administration. Current interpretive data last reviewed 2019. Blood 06/01/2024 9:20 AM CDT 06/01/2024 9:53 AM CDT Patricia Davidson MD PhD LAB BLOOD ORDERABLES Final Result Performing Organization Address City/[facility] Co de Phone Number [facility] [address] [place] [address] * (ABNORMAL) eGFR (06/01/2024 6:17 AM CDT) [facility] eGFR 29(L) >=60 mL/min/1. 73 m2 Comment: [...] MD PhD LAB BLOOD ORDERABLES Final Result [facility] [place] [address] * (ABNORMAL) Renal function panel (06/01/2024 6:17 AM CDT) Pathologist [facility] Sodium 135 135 - 145 mmol/L Potassium, pl 4.5 3.3 - 4.9 mmol/L [facility] Chloride 103 97 - 110 mmol/L [facility] CO2 22 22 - 32 mmol/L [facility] Anion gap 10 2 - 15 mmol/L [facility] BUN 24 6 - 25 mg/dL [facility] Creatinine 2.15(H) 0.60 - 1.10 mg/dL [facility] Glucose 120 70 - 199 mg/dL [facility] Comment: Interpretive Data Fasting glucose [...] 2022. Calcium 8.7 8.5 - 10.3 mg/dL [facility] Phosphorus, pl 2.8 2.3 - 4.5 mg/dL [facility] Albumin 3.6 3.5 - 5.0 g/dL [facility] Blood 06/01/2024 6:17 AM CDT 06/01/2024 6:52 AM CDT us Patricia Davidson MD PhD LAB BLOOD ORDERABLES Final Result [facility] Department [place] [address] * TRANSTHORACIC ECHO (TTE) COMPLETE W DOPPLER/CF WO CONTRAST (05/31/2024 2:50 PM CDT) Anatomical Region Laterality Modality Ultrasound 05/31/2024 2:12 PM CDT Narrative 05/31/2024 3:36 PM CDT [facility] [place] [place] [address] Transthoracic Echocardiographic Report Patient Name: MISHA BROWNE : 1980 (43y 7m) Gender: F Study Date: 05/31/2024 02:12:33 PM Ht(Inch): 63 Wt(Lb): 184.97 BSA: 1.93 Services Delivery Driver: Elisabeth Em RDCS Location: [id number] Order Provider: PINEDA HINOJOSA Heart Rate: 61 [...] trileaflet aortic valve. Mild aortic valve regurgitation (KYA=464 ms). The mean transaortic gradient is 4 [...] LA Length 4C 6.78 cm AI Decel Smyth 2.15 m/s2 LA Length 2C 6.66 cm [...] ED Abdiel 90.44 m/sec Electronically Signed By: Stalni Krishna M.D. 05/31/2024 3:36:31 PM CDT Procedure Note Stalin Krishna MD - 05/31/2024 [facility] Cardiac Diagnostic Lab [address] [id number] Transthoracic Echocardiographic Report Patient Name: MISHA BROWNE : 1980 (43y 7m) Gender: F Study Date: 05/31/2024 02:12:33 PM Ht(Inch): 63 Wt(Lb): 184.97 BSA: 1.93 Services Delivery Driver: Elisabeth Em RDCS Location: [id number] Order Provider:PINEDA HINOJOSA Heart Rate: 61 BMI: [...] Normal trileaflet aortic valve. Mild aortic valve regurgitation(CWJ=682 ms). The mean transaortic gradient is 4 [...] [ -25.0 - -18.0 ] AI Decel Satz8607.62 sec LA Length 4C 6.78 cm AI Decel Slope2.15 m/s2 LA Length 2C 6.66 cm AI VFL525.76 msec LA Volume BP 83.77 ml MV [...] [ 1.71 - 5.00 ] MV Decel Szyj292.34 msec [ 104.00 - 258.00 ] RA [...] MD PhD LAB BLOOD ORDERABLES Final Result [facility] [place] [address] * Differential, auto (05/31/2024 4:55 AM CDT) Neutrophil abs 4.9 1.5 - 6.5 K/cumm Imm gran abs 0.0 0.0 - 0.1 K/cumm [facility] Lymphocyte abs 1.4 0.8 - 3.3 K/cumm [facility] Monocyte abs 0.6 0.2 - 0.8 K/cumm [facility] Eosinophil abs 0.1 0.0 - 0.5 [facility] Basophil abs 0.0 0.0 - 0.1 [facility] Neutrophil pct 69.8 % [facility] Comment: Interpretive Data Percent cell count reference ranges are not reported, since discordance with absolute values may lead to misinterpretation of CBC data. Current Interpretive Data was last revised on 2017. Imm gran pct 0.6 % [facility] Comment: Interpretive Data Percent cell count reference ranges are not reported, since discordance with absolute values may lead to misinterpretation of CBC data. Current Interpretive Data was last revised on 2017. Lymphocyte pct 19.7 % [facility] Comment: Interpretive Data Percent cell count reference ranges are not reported, since discordance with absolute values may lead to misinterpretation of CBC data. Current Interpretive Data was last revised on 2017. Monocyte pct 8.0 % [facility] Comment: Interpretive Data Percent cell count reference ranges are not reported, since discordance with absolute values may lead to misinterpretation of CBC data. Current Interpretive Data was last revised on 2017. Eosinophil pct 1.9 % [facility] Comment: Interpretive Data Percent cell count reference ranges are not reported, since discordance with absolute values may lead to misinterpretation of CBC data. Current Interpretive Data was last revised on 2017. Basophil pct 0.0 % [facility] Comment: Interpretive Data Percent cell count reference ranges are not reported, since discordance with absolute values may lead to misinterpretation of CBC data. Current Interpretive Data was last revised on 2017. Blood 05/31/2024 4:55 AM CDT 05/31/2024 5:49 AM CDT Patricia Davidson MD PhD LAB BLOOD ORDERABLES Final Result Performing Organization Address [facility] de Phone Number [facility] Department [place] [address] * Tacrolimus level trough (05/31/2024 4:55 AM CDT) [facility] Tacrolimus trough 9.2 ng/mL Comment: Interpretive Data Testing performed by liquid chromatography-tandem mass spectrometry. Therapeutic concentrations vary depending on type of transplanted organ and time elapsed since transplant. Typical trough concentrations range from 5-15 ng/mL. This test was developed and its performance characteristics determined by the [facility] consistent with CLIA requirements. This test has not been cleared or approved by the [place] Food and Drug administration. Current interpretive data last reviewed 2019. Blood 05/31/2024 4:55 AM CDT 05/31/2024 5:49 AM CDT Patricia Davidson MD PhD LAB BLOOD ORDERABLES Final Result Performing Organization Address [facility] Co de Phone Number [facility] Department [place] [address] * (ABNORMAL) CBC with auto differential (05/31/2024 4:55 AM CDT) [facility] WBC 7.0 3.8 - 9.9 K/cumm Hgb 11.2(L) 11.9 - 15.5 g/dL [facility] Hct 31.4(L) 35.6 - 45.5 % [facility] Plt 102(L) 150 - 400 K/cumm [facility] MPV 10.9 9.1 - 12.3 fL [facility] RBC 3.15(L) 3.90 - 5.20 M/cumm [facility] MCV 99.7(H) 81.3 - 96.4 fL [facility] MCH 35.6(H) 27.1 - 33.3 pg [facility] MCHC 35.7 32.3 - 35.7 g/dL [facility] RDW CV 12.9 11.1 - 14.9 % [facility] RDW SD 46.0 35.7 - 48.1 fL [facility] NRBC abs 0.00 0.00 - 0.01 K/cumm [facility] Blood 05/31/2024 4:55 AM CDT 05/31/2024 5:49 AM CDT us Patricia Davidson MD PhD LAB BLOOD ORDERABLES Final Result [facility] [place] [address] * (ABNORMAL) Renal function panel (05/31/2024 4:55 AM CDT) [facility] Sodium 136 135 - 145 mmol/L Potassium, pl 4.6 3.3 - 4.9 mmol/L [facility] Chloride 105 97 - 110 mmol/L [facility] CO2 23 22 - 32 mmol/L [facility] Anion gap 8 2 - 15 mmol/L [facility] BUN 30(H) 6 - 25 mg/dL [facility] Creatinine 2.90(H) 0.60 - 1.10 mg/dL [facility] Glucose 119 70 - 199 mg/dL [facility] Comment: Interpretive Data Fasting glucose [...] 2022. Calcium 8.4(L) 8.5 - 10.3 mg/dL [facility] Phosphorus, pl 3.2 2.3 - 4.5 mg/dL [facility] Albumin 3.6 3.5 - 5.0 g/dL [facility] Blood 05/31/2024 4:55 AM CDT 05/31/2024 5:48 AM CDT Patricia Davidson MD PhD LAB BLOOD ORDERABLES Final Result Performing Organization Address City/[facility]/ZIP Co de Phone Number [facility] Department of [address] [place] [address] * Sodium, urine, random (05/30/2024 5:23 PM CDT) Sodium, ur <20 mmol/L Comment: Interpretive Data No reference range established. Current interpretive data was last revised 2018. Urine 05/30/2024 5:23 PM CDT 05/30/2024 5:59 PM CDT Pineda Barrios MD LAB URINE ORDXavier VALDEZ Final Result Performing Organization Address City/[facility]/ZIP Co de Phone Number [facility] [address] [place] [address] * Creatinine, urine, random (05/30/2024 5:23 PM CDT) Creatinine Ur 121.1 mg/dL Comment: Interpretive Data No reference range established. Current interpretive data was last revised 2018. Urine 05/30/2024 5:23 PM CDT 05/30/2024 5:59 PM CDT Pineda Barrios MD LAB URINE RICO VALDEZ Final Result Performing Organization Address [facility]/ZIP Co de Phone Number [facility] [place] [address] * BK virus PCR quantitative Blood (05/30/2024 4:44 AM CDT) BKV DNA result, pl Not Detected [facility] Comment: The quantifiable range of this assay is 21.5 IU/mL to 100,000,000 IU/mL (1.33 log IU/mL to 8.00 log IU/mL). Testing was performed by the [facility] [employer] BKV Quantatitive Test version 2.0 ([employer] Testing performed at [facility] Current Interpretive Data was last revised on 2021. Blood 05/30/2024 4:44 AM CDT 05/30/2024 5:55 AM CDT Result [facility] Patricia Davidson MD PhD LAB MICROBIOLOGY - GENERAL ORDERABLES Final Result Performing Organization Address [facility] Co de Phone Number [facility] [address] [place] [address] [facility] * Collection Task for HLA Antibody Screen (05/30/2024 4:44 AM CDT) Pathologist [facility] HLA Antibody Screen By Single Antigen Received Blood 05/30/2024 4:44 AM CDT 05/30/2024 9:01 AM CDT Result [facility] Patricia Davidson MD PhD LAB BLOOD ORDERABLES Final Result Performing Organization Address [facility] Co de Phone Number [facility] [place] [address] * Cytomegalovirus (CMV) DNA PCR, quantitative Blood (05/30/2024 4:44 AM CDT) Pathologist [facility] CMV DNA Not Detected [facility] Comment: Interpretive Data: The quantifiable range of this assay is 34 IUnits/mL to 10,000,000 IUnits/mL (1.53 log IUnits/mL to 7.0 log IUnits/mL). Testing was performed by the [facility] 6800 CMV Test ([employer] Testing performed at [facility]. Current interpretive data was last revised on 2020. Blood 05/30/2024 4:44 AM CDT 05/30/2024 5:55 AM CDT us Patricia Davidson MD PhD LAB MICROBIOLOGY - GENERAL ORDERABLES Final Result [facility] [place] [address] [facility] * (ABNORMAL) eGFR (05/30/2024 4:44 AM CDT) [facility] eGFR 21(L) >=60 mL/min/1. 73 m2 Comment: [...] MD PhD LAB BLOOD ORDERABLES Final Result [facility] Department [place] [address] * Differential, auto (05/30/2024 4:44 AM CDT) Neutrophil abs 5.0 1.5 - 6.5 K/cumm Imm gran abs 0.0 0.0 - 0.1 K/cumm [facility] Lymphocyte abs 1.7 0.8 - 3.3 K/cumm [facility] Monocyte abs 0.5 0.2 - 0.8 K/cumm [facility] Eosinophil abs 0.1 0.0 - 0.5 K/cumm [facility] Basophil abs 0.0 0.0 - 0.1 K/cumm [facility] Neutrophil pct 68.2 % [facility] Comment: Interpretive Data Percent cell count reference ranges are not reported, since discordance with absolute values may lead to misinterpretation of CBC data. Current Interpretive Data was last revised on 2017. Imm gran pct 0.5 % [facility] Comment: Interpretive Data Percent cell count reference ranges are not reported, since discordance with absolute values may lead to misinterpretation of CBC data. Current Interpretive Data was last revised on 2017. Lymphocyte pct 22.6 % [facility] Comment: Interpretive Data Percent cell count reference ranges are not reported, since discordance with absolute values may lead to misinterpretation of CBC data. Current Interpretive Data was last revised on 2017. Monocyte pct 6.8 % [facility] Comment: Interpretive Data Percent cell count reference ranges are not reported, since discordance with absolute values may lead to misinterpretation of CBC data. Current Interpretive Data was last revised on 2017. Eosinophil pct 1.8 % [facility] Comment: Interpretive Data Percent cell count reference ranges are not reported, since discordance with absolute values may lead to misinterpretation of CBC data. Current Interpretive Data was last revised on 2017. Basophil pct 0.1 % [facility] Comment: Interpretive Data Percent cell count reference ranges are not reported, since discordance with absolute values may lead to misinterpretation of CBC data. Current Interpretive Data was last revised on 2017. Blood 05/30/2024 4:44 AM CDT 05/30/2024 5:30 AM CDT Patricia Davidson MD PhD LAB BLOOD ORDERABLES Final Result Performing Organization Address [facility] de Phone Number [facility] [address] [place] [address] * Tacrolimus level trough (05/30/2024 4:44 AM CDT) Pathologist [facility] Tacrolimus trough 16.5 ng/mL Comment: Interpretive Data Testing performed by liquid chromatography-tandem mass spectrometry. Therapeutic concentrations vary depending on type of transplanted organ and time elapsed since transplant. Typical trough concentrations range from 5-15 ng/mL. This test was developed and its performance characteristics determined by the [facility] consistent with CLIA requirements. This test has not been cleared or approved by the [place] Food and Drug administration. Current interpretive data last reviewed 2019. Blood 05/30/2024 4:44 AM CDT 05/30/2024 5:30 AM CDT Patricia Davidson MD PhD LAB BLOOD ORDERABLES Final Result Performing Organization Address [facility] de Phone Number [facility] of [address] [place] [address] * (ABNORMAL) CBC with auto differential (05/30/2024 4:44 AM CDT) Pathologist [facility] WBC 7.4 3.8 - 9.9 K/cumm Hgb 12.0 11.9 - 15.5 g/dL [facility] Hct 33.9(L) 35.6 - 45.5 % [facility] Plt 130(L) 150 - 400 K/cumm [facility] MPV 10.8 9.1 - 12.3 fL [facility] RBC 3.40(L) 3.90 - 5.20 M/cumm [facility] MCV 99.7(H) 81.3 - 96.4 fL [facility] MCH 35.3(H) 27.1 - 33.3 pg [facility] MCHC 35.4 32.3 - 35.7 g/dL [facility] RDW CV 13.0 11.1 - 14.9 % [facility] RDW SD 47.4 35.7 - 48.1 fL [facility] NRBC abs 0.00 0.00 - 0.01 K/cumm [facility] Blood 05/30/2024 4:44 AM CDT 05/30/2024 5:30 AM CDT us Patricia Davidson MD PhD LAB BLOOD ORDERABLES Final Result [facility] Department [place] [address] * (ABNORMAL) Renal function panel (05/30/2024 4:44 AM CDT) Sodium 142 135 - 145 mmol/L Potassium, pl 4.2 3.3 - 4.9 mmol/L [facility] Chloride 108 97 - 110 mmol/L [facility] CO2 25 22 - 32 mmol/L [facility] Anion gap 9 2 - 15 mmol/L [facility] BUN 23 6 - 25 mg/dL [facility] Creatinine 2.76(H) 0.60 - 1.10 mg/dL [facility] Glucose 123 70 - 199 mg/dL [facility] Comment: Interpretive Data Fasting glucose [...] 2022. Calcium 9.1 8.5 - 10.3 mg/dL [facility] Phosphorus, pl 3.6 2.3 - 4.5 mg/[facility] Albumin 3.8 3.5 - 5.0 g/dL [facility] Blood 05/30/2024 4:44 AM CDT 05/30/2024 5:31 AM CDT Patricia Davidson MD PhD LAB BLOOD ORDERABLES Final Result Performing Organization Address City/[facility]/ZIP Co de Phone Number [facility] [place] [address] * HLA Donor Specific Antibody Report (05/30/2024 [...] MD PhD LAB BLOOD ORDERABLES Final Result [facility] * ECG 12 lead (05/30/2024 1:10 AM CDT) Ventricular Rate EKG/Min 75 BPM [facility] Atrial Rate 75 BPM [facility] AL-Interval (MSEC) 160 ms [facility] QRS-Interval (MSEC) 82 ms [facility] QT-Interval (MSEC) 456 ms [facility] QTc 509 ms [facility] P Dierks 31 degrees [facility] R Dierks -9 degrees [facility] T Dierks 44 degrees [facility] Diagnosis Normal sinus rhythm Poor r wave progression associated with abnormal lead placement, obesity, pulmonary disease, anterior infarction. Prolonged QT Abnormal ECG When compared with ECG of 20-APR-2020 11:02, QRS voltage has increased Confirmed by BRODIE LEIGH M.D ([id number]) on 05/30/2024 12:29:55 PM [facility] 05/30/2024 1:10 AM CDT 05/30/2024 12:29 PM CDT us Patricia Davidson MD PhD ECG ORDERABLES Final Resul t [facility] [place] * US Renal Transplant W Dopplers (05/29/2024 [...] by: Ziyad Purdy M.D. Jessee Mandel MD [facility] US PROCEDURES Aniya l Result * Influenza A/B, RSV, and COVID-19 PCR Nasopharyngeal (05/29/2024 4:10 PM CDT) Pathologist [facility] COVID-19 RNA Negative Negative [facility] Influenza A RNA Negative Negative [facility] Influenza B RNA Negative Negative [facility] RSV RNA Negative Negative [facility] Comment: Interpretive data: Testing performed by [facility] ([phone]). This test is performed using the [employer] Xpert Xpress CoV-2/Flu/RSV plus assay. This is a multiplex, real-time reverse transcriptase PCR assay intended for the qualitative detection of nucleic acid from SARS-CoV-2, influenza A, influenza B, and respiratory syncytial virus. This assay has been cleared by the [place] Food and Drug administration. The performance characteristics have been verified by the [facility]. Results must be considered in the clinical context, and a negative result does not rule out infection. Interpretive Data last revised 2023 Nasopharyngeal 05/29/2024 4: 10 PM CDT 05/29/2024 5:03 PM CDT Narrative [facility] - 05/29/2024 5:51 PM CDT Is the Patient experiencing symptoms consistent with COVID?->Unknown Mona Barrios MD LAB MICROBIOLOGY - GEN ERAL ORDERABLES Final Result [facility] [place] [address] [facility] * Respiratory pathogen panel Nasopharyngeal (05/29/2024 4:10 PM CDT) Pathologist [facility] Influenza A RNA Not Detected Not Detected Influenza B RNA Not Detected Not Detected [facility] RSV RNA Not Detected Not Detected [facility] COVID-19 RNA Not Detected Not Detected [facility] Coronavirus 229E RNA Not Detected Not Detected [facility] Coronavirus HKU1 RNA Not Detected Not Detected [facility] Coronavirus NL63 RNA Not Detected Not Detected [facility] Coronavirus OC43 RNA Not Detected Not Detected [facility] Adenovirus DNA Not Detected Not Detected [facility] Metapneumovirus RNA Not Detected Not Detected [facility] Rhinovirus/Enterov irus RNA Not Detected Not Detected [facility] Parainfluenza 1 RNA Not Detected Not Detected [facility] Parainfluenza 2 RNA Not Detected Not Detected [facility] Parainfluenza 3 RNA Not Detected Not Detected [facility] Parainfluenza 4 RNA Not Detected Not Detected [facility] B. pertussis DNA Not Detected Not Detected [facility] B. parapertussis DNA Not Detected Not Detected [facility] C. pneumoniae DNA Not Detected Not Detected [facility] M. pneumoniae DNA Not Detected Not Detected [facility] Nasopharyngeal 05/29/2024 4: 10 PM CDT 05/30/2024 6:07 AM CDT Narrative [facility] - 05/30/2024 7:05 AM CDT Interpretive Data The [employer] FilmArray Respiratory Panel (RP2.1) assay is a [...] assay has FDA clearance for testing of [employer] swabs. The performance of additional specimen types has been assessed by the performing laboratory. The performance characteristics of this assay have been determined by [facility] Infectious Disease Laboratory. Current interpretive data was last revised on 21. Pineda Barrios MD LAB MICROBIOLO GY - GENERAL ORDERABLES Final Result Performing Organization Address City/State/[facility] Co de Phone Number [facility] Department [place] [address] * Urinalysis reflex to microscopic (05/29/2024 3:31 PM CDT) Color, ur Yellow Yellow Clarity, ur Clear Clear [facility] Specific gravity, ur 1.013 1.003 - 1.030 [facility] pH, urine 5.5 [facility] Comment: Interpretive Data U rine pH is affected by diet, medications, systemic acid-base disturbances, and renal tubular function. pH may affect urinary stone formation. For example, urine pH below 6.0 may help reduce the tendency for calcium phosphate stones and pH greater than 6.0 may reduce the tendency for uric acid stone formation. Source: [facility] Current Interpretive Data was last revised on 2017 Protein, ur ql Trace Negative [facility] Glucose, ur ql Negative Negative [facility] Ketones, ur Negative Negative [facility] Bilirubin, ur Negative Negative [facility] Blood, ur Negative Negative [facility] Urobilinogen, ur <2.0 <2.0 mg/dL [facility] Nitrite, ur Negative Negative [facility] Leukocyte esterase, ur Negative Negative [facility] UA reflex comment Reflex conditions for microscopic UA not met. [facility] Urine 05/29/2024 3:31 PM CDT 05/29/2024 3:38 PM CDT Shruti Damon MD LAB URINE ORDERABLES Aniya l Result Performing Organization Address City/State/[facility] Co de Phone Number [facility] Department [place] [address] * POCT hCG, urine (05/29/2024 3:30 PM CDT) HCG, ur, POC Negative Negative Lot Number [id number] QC Backgroud Clear Acceptable QC Control Line Acceptable Urine 05/29/2024 3:30 PM CDT us Shruti Damon MD POINT OF CARE TEST ORDERA BLES Final Result * POCT lactate (05/29/2024 3:02 PM CDT) [facility] Lactate POC i-STAT 1.9 0.7 - 2.0 mmol/L Blood 05/29/2024 3:02 PM CDT 05/29/2024 3:02 PM CDT us Notinfile Unknown LAB POCT ORDERABLES - DEVICE F inal Result Performing Organization Address [facility] Co de Phone Number [facility] Department [place] [address] * (ABNORMAL) eGFR (05/29/2024 2:57 PM CDT) [facility] eGFR 30(L) >=60 mL/min/1. 73 m2 Comment: [...] MD LAB BLOOD ORDERABLES Aniya maguire Result [facility] [place] [address] * Differential, auto (05/29/2024 2:57 PM CDT) Neutrophil abs 5.5 1.5 - 6.5 K/cumm Imm gran abs 0.0 0.0 - 0.1 K/cumm [facility] Lymphocyte abs 0.9 0.8 - 3.3 K/cumm [facility] Monocyte abs 0.4 0.2 - 0.8 K/cumm [facility] Eosinophil abs 0.1 0.0 - 0.5 K/cumm [facility] Basophil abs 0.0 0.0 - 0.1 K/cumm [facility] Neutrophil pct 79.6 % [facility] Comment: Interpretive Data Percent cell count reference ranges are not reported, since discordance with absolute values may lead to misinterpretation of CBC data. Current Interpretive Data was last revised on 2017. Imm gran pct 0.4 % [facility] Comment: Interpretive Data Percent cell count reference ranges are not reported, since discordance with absolute values may lead to misinterpretation of CBC data. Current Interpretive Data was last revised on 2017. Lymphocyte pct 13.7 % [facility] Comment: Interpretive Data Percent cell count reference ranges are not reported, since discordance with absolute values may lead to misinterpretation of CBC data. Current Interpretive Data was last revised on 2017. Monocyte pct 5.5 % [facility] Comment: Interpretive Data Percent cell count reference ranges are not reported, since discordance with absolute values may lead to misinterpretation of CBC data. Current Interpretive Data was last revised on 2017. Eosinophil pct 0.7 % [facility] Comment: Interpretive Data Percent cell count reference ranges are not reported, since discordance with absolute values may lead to misinterpretation of CBC data. Current Interpretive Data was last revised on 2017. Basophil pct 0.1 % [facility] Comment: Interpretive Data Percent cell count reference ranges are not reported, since discordance with absolute values may lead to misinterpretation of CBC data. Current Interpretive Data was last revised on 2017. Blood 05/29/2024 2:57 PM CDT 05/29/2024 3:21 PM CDT us Shruti Damon MD LAB BLOOD ORDERABLES Aniya maguire Result [facility] Department [place] [address] * (ABNORMAL) CBC with auto differential (05/29/2024 2:57 PM CDT) WBC 6.9 3.8 - 9.9 K/cumm Hgb 13.5 11.9 - 15.5 g/dL [facility] Hct 38.8 35.6 - 45.5 % [facility] Plt 129(L) 150 - 400 K/cumm [facility] MPV 10.7 9.1 - 12.3 fL [facility] RBC 3.88(L) 3.90 - 5.20 M/cumm [facility] MCV 100.0(H) 81.3 - 96.4 fL [facility] MCH 34.8(H) 27.1 - 33.3 pg [facility] MCHC 34.8 32.3 - 35.7 g/dL [facility] RDW CV 13.0 11.1 - 14.9 % [facility] RDW SD 47.6 35.7 - 48.1 fL [facility] NRBC abs 0.00 0.00 - 0.01 K/cumm [facility] Blood Venous blood specimen / Unknown 05/29/2024 2:57 PM CDT 05/29/2024 3:21 PM CDT Shruti Damon MD LAB BLOOD ORDERABLES Aniya l Result Performing Organization Address City/[facility] Co de Phone Number [facility] Department [place] [address] * Tacrolimus level random (05/29/2024 2:57 PM CDT) [facility] Tacrolimus random 20.2 ng/mL Comment: Interpretive Data Testing performed by liquid chromatography-tandem mass spectrometry. Therapeutic concentrations vary depending on type of transplanted organ and time elapsed since transplant. Typical trough concentrations range from 5-15 ng/mL. This test was developed and its performance characteristics determined by the [facility] consistent with CLIA requirements. This test has not been cleared or approved by the [place] Food and Drug administration. Current interpretive data last reviewed 2019. Blood 05/29/2024 2:57 PM CDT 05/29/2024 3:28 PM CDT Pineda Barrios MD LAB BLOOD ORDE RABLES Final Result Performing Organization Address [facility] Co de Phone Number [facility] Department of [address] [place] [address] * Lipase (05/29/2024 2:57 PM CDT) [facility] Lipase 12 10 - 99 Units/L Blood Venous blood specimen / Unknown 05/29/2024 2:57 PM CDT 05/29/2024 3:20 PM CDT Shruti Damon MD LAB BLOOD ORDERABLES Aniya l Result Performing Organization Address City/[facility] Co de Phone Number [facility] Department [place] [address] * (ABNORMAL) Comprehensive metabolic panel (05/29/2024 2:57 PM CDT) Sodium 137 135 - 145 mmol/L Potassium, pl 4.6 3.3 - 4.9 mmol/L [facility] Chloride 107 97 - 110 mmol/L [facility] CO2 18(L) 22 - 32 mmol/L [facility] Anion gap 12 2 - 15 mmol/L [facility] BUN 22 6 - 25 mg/dL [facility] Creatinine 2.10(H) 0.60 - 1.10 mg/dL [facility] Glucose 185 70 - 199 mg/dL [facility] Comment: Interpretive Data Fasting glucose [...] 2022. Calcium 9.9 8.5 - 10.3 mg/dL [facility] Bilirubin, total 0.8 0.1 - 1.2 mg/dL [facility] Protein, pl 7.6 6.5 - 8.5 g/dL [facility] Albumin 4.0 3.5 - 5.0 g/dL [facility] Alk phos 372(H) 40 - 130 Units/L [facility] ALT 22 7 - 45 Units/L [facility] AST 28 10 - 45 Units/L [facility] Blood 05/29/2024 2:57 PM CDT 05/29/2024 3:20 PM CDT us Shruti Damon MD LAB BLOOD ORDERABLES Aniya maguire Result [facility] [place] [address] * Hepatitis panel, acute (04/16/2020 6:35 AM RELATIONS SPECIALIST) Hep A IgM Nonreactive Nonreactive [facility] Comment: Interpretive Data: If Hep A IgM Ab is reported as Equivocal, a new sample should be drawn in two weeks for testing. Current interpretive data was last revised on 19. Hep B core IgM Nonreactive Nonreactive [facility] Comment: Interpretive Data If HepB Core IgM Ab is reported as Equivocal, a new sample should be drawn in two weeks for testing. Current interpretive data was last revised on 19. Hep C Ab Nonreactive Nonreactive [facility] Comment:Antibodies to HCV no t detected. Does NOT exclude the possibility of recent exposure to HCV. HepBsAg Nonreactive Nonreactive [facility] Blood specimen (specimen) 04/16/2020 6:35 AM RELATIONS SPECIALIST 04/16/2020 7:34 AM RELATIONS SPECIALIST Jacob Gates MD LAB MICROBIOLOGY - GENER AL ORDERABLES Final Result [facility] Department of Laboratories [place], [place] [id number] from Last 3 Months or Most Recently Relevant to Health Maintenance Insurance [employer] OPEN ACCESS [employer] [facility] PL[facility] CIGNA [place] Advance Directives For more information, please contact: [phone] * Full Code (Latest Code Status on File) Date Activated Date Inactivated Comments 05/29/2024 10:30 PM 06/13/2024 7:10 PM * Full Code Date Activated Date Inactivated Comments 04/16/2020 1:16 AM 04/23/2020 6:51 PM * Full Code Date Activated Date Inactivated Comments 08/14/2019 3:14 PM 08/14/2019 9:26 PM * Full Code Date Activated Date Inactivated Comments 07/25/2019 6:15 AM 07/25/2019 11:51 PM Care Teams Railroad Wheels And Axles Inspector Relationship Specialty Start Date End Date Lyly Fiore NP [address] [place] [address] PCP - General Nurse Practitioner 05/29/24 Beatriz Lee MD [address] [place] [address] Referring Physician Gastroenterology 07/25/19 Taylor Kitchen, bag inspectorCommissioner Of Officials 05/29/24
--- OUTSIDE RECORDS SUMMARY | 2024-07-20 15:19 | XMS_ITS | Continuity of Care Document ---
Author Organization [facility] Address [address] [place] [address] Phone Care Team Providers Care Awning Hanger Supervisor Name Role Phone Santana Timmons MD Unavailable Unavailable Procedures Procedure Date Subsequent Hospital Care Initial Inpatient Consult Advance Directives Directive Yes / No Effective Date File Name No Information Encounters Encounter Description Practice Location Reason(s) For Visit Diagnoses Date Provider Providers Copied on Encounter Subsequent Hospital Care [facility], [address] [place] [address], [id number], tel:[phone] [facility] No Information 1 Shanelle Dillon. [address] [place] [address], [id number], [place]. tel:[phone] Referring Provider: Hermes Ramirez , [address] [place] [address], [id number]. tel:[phone] Initial Inpatient Consult [facility], [address] [place] [address], [id number], tel:[phone] [facility] No Information Shanelle Dillon. [address] [place] [address], [id number], . tel:[phone] Referring Provider: Hermes Ramirez [address], [address]. tel:[phone] Family History Family Member Type Diagnosis Age At Onset No Information Payers Payer name Insurance type Covered green party ID Authoriza tiyoan(s) [facility] [id number] Social History Type Description Quantity Date Captured Comments Sex Female Smoking Status No Information Chief Complaint And Reason For Visit No Information History Of Present Illness Encounter Date Complaint History Of Prese nt Illness No Information Instructions Date Instruction Additional Infor mation No Information Assessments Type Assessment Date No Information
--- OUTSIDE RECORDS SUMMARY | 2024-07-20 15:19 | XMS_ITS ---
Author Organization [facility] Address [address] [place] [address] Care Team Providers Care Regional Operations Director Name Role Phone Beatriz Lee MD Unavailable [phone] Lyly Fiore NP Primary Care Provider Taylor Kitchen RN Unavailable Unav ailable Transplant Episode Liver Recipient [facility] ([place], [place]) - [facility] Transplanted on 05/09/2020 Marked as Active Follow-up on 07/01/2024 Reason: In Transition Process Liver CoordinatorMargusebas Kitchen RN Phone: N/A Fax: N/A Email: N/A Transplanted Elsewhere: [facility] ([place], [place]) - [facility] Coordinator: Phone: Fax: [place] Organ Diagnosis Organ Primary Contributory Liver Biliary Atresia: Extrahepatic Care Team Name Role Phone Fax Email Taylor Kitchen RN Liver Coordinator N/A N /A N/A Events Post-Transplant Pre-Transplant Transplanted: 05/09/2020 Appointments (06/20/2024 - 08/20/2024) When With Visit Type Description 06/26/2024 Transplant - Juan J Lee New Nicotine dependence with current use
--- OUTSIDE RECORDS SUMMARY | 2024-07-20 15:19 | XMS_ITS | Encounter Summary ---
Author Organization [facility] Address [address] [place] [address] Care Team Providers Care Feather Separator Name Role Phone Ashley ZUNIGA MD, Hermes Perez Primary Care Provid er Lyly Fiore NP Primary Care Provider [phone] Encounter Details Date Type Department Care Team ([facility] st Contact Info) Description 06/03/2017 Abstract [facility] CONVERSION [address] [place] [address] , Generic ConversionMD Social History Tobacco Use Types Packs/Day Years Used Date Smoking Tobacco: Never Assessed Comments Unknown Sex and Gender Information Value Date Recorded Sex Assigned at Female 04/05/2024 4:26 PM EXCAVATING SUPERVISOR Legal Sex Female 9:15 PM EXCAVATING SUPERVISOR Gender Identity Not on file Sexual Orientation Not on file documented as of this encounter Plan of Treatment Not on file documented as of this encounter Visit Diagnoses Not on filedocumented in this encounter Additional Health Concerns Infection Onset Date Last Indicated Resolved Time COVID-19 Rule Out 03/30/2020 03/30/2020 03/30/2020 9:29 PM EXCAVATING SUPERVISOR COVID-19 Rule Out 03/30/2020 03/30/2020 03/31/2020 12:28 PM EXCAVATING SUPERVISOR COVID-19 Rule Out 02/16/2024 02/16/2024 02/16/2024 9:16 PM EXCAVATING SUPERVISOR Rhinovirus 02/16/2024 02/16/2024 02/26/2024 12:3 2 AM EXCAVATING SUPERVISOR documented as of this encounter Care Teams Feather Separator Relationship Specialty Start Date End Date Hermes Ramirez III, MD [address] [address] PCP - General FAMILY PRACTICE 06/20/17 04/13/24 Lyly Fiore NP [address] [place] [address] PCP - General NURSE PRACTITIONER 04/14/24 documented as of this encounter
--- OUTSIDE RECORDS SUMMARY | 2024-07-20 15:19 | XMS_ITS | Encounter Summary ---
Author Organization [facility] Address [address] [place] [address] Care Team Providers Care Sap Pp Consultant Name Role Phone Ashely ZUNIGA MD, Hermes Perez Primary Care Provid er Lyly Fiore NP Primary Care Provider [phone] Encounter Details Date Type Department Care Team (Late st Contact Info) Description 08/22/2018 Abstract [facility] [address] [place] [id number] Social History Tobacco Use Types Packs/Day Years Used Date Smoking Tobacco: Every Day Cigarettes 0.5 15 Smokeless Tobacco: Never Alcohol Use Standard Drinks/Week Comments No 0 (1 standard drink = 0.6 oz pur e alcohol) Comments No Sex and Gender Information Value Date Recorded Sex Assigned at Female 04/05/2024 4:26 PM SMOOTH STUCCO RESURFACER Legal Sex Female 9:15 PM SMOOTH STUCCO RESURFACER Gender Identity Not on file Sexual Orientation Not on file documented as of this encounter Plan of Treatment Not on file documented as of this encounter Visit Diagnoses Not on filedocumented in this encounter Additional Health Concerns Infection Onset Date Last Indicated Resolved Time COVID-19 Rule Out 03/30/2020 03/30/2020 03/30/2020 9:29 PM SMOOTH STUCCO RESURFACER COVID-19 Rule Out 03/30/2020 03/30/2020 03/31/2020 12:28 PM SMOOTH STUCCO RESURFACER COVID-19 Rule Out 02/16/2024 02/16/2024 02/16/2024 9:16 PM SMOOTH STUCCO RESURFACER Rhinovirus 02/16/2024 02/16/2024 02/26/2024 12:3 2 AM SMOOTH STUCCO RESURFACER documented as of this encounter Care Teams Sap Pp Consultant Relationship Specialty Start Date End Date Hermes Ramirez III, MD [address] [facility] [address] [place] [address] PCP - General FAMILY PRACTICE 06/20/17 04/13/24 Lyly Fiore NP [address] [place] [address] PCP - General NURSE PRACTITIONER 04/14/24 documented as of this encounter
--- OUTSIDE RECORDS SUMMARY | 2024-07-20 15:19 | XMS_ITS | Encounter Summary ---
Author Organization [facility] Healthcare Address [address] [place] [address] Care Team Providers Care Artificial Breast Fabricator Name Role Phone Beatriz Lee MD Unavailable [phone] Lyly Fiore BOOKMOBILE LIBRARIAN Primary Care Provider Taylor Kitchen RN Unavailable Unav ailable Reason for Visit * Reason Onset Date Comments After Hours 07/19/2024 Abdominal Pain 07/19/2024 Encounter Details Date Type Department Care Team (Late st Contact Info) Description 07/19/2024 Telephone [facility] Transplant Liver [address] [facility][1] [phone] [place], [place] [id number] Karmen Garsia RN [address] [facility] [address] [place], [place] [id number] After Hours; Abdominal Pain Social History Tobacco Use Types Packs/Day Years [...] on file Legal Sex Female 10:10 PM FISH STRAIGHTENER Gender Identity Not on file Sexual Orientation Not on file documented as of this encounter Miscellaneous Notes * Telephone Encounter - Karmen Garsia RN - 07/19/2024 5:30 PM CDT ON-CALL NOTE: Received page from patient noting she is having pain and local ER is not helping. Returned call to patient who states she has left the local ER in [place] as they only wanted to give her Benadryl and compazine for her migraine and back pain. States she is not doing well mentally andcannot get in to see her PCP for two weeks. States she is supposed to see [facility] ortho 07/24 but cannot wait that long to have the pain addressed. States she has been to multiple ERs ([facility], [facility] and [facility] [place] with no one willing to give her morphine or dilaudid which are the only meds that help with her migraines. States oxycodone causes itchiness. She is asking if the transplant team will admit her to [facility]. Informed her that as this situation is not related to her transplants we are unable to direct admit. Also noted we have a waiting list of patients to be admitted to [facility]. Recommended she seek care from another hospital if she is not satisfied with the care at the three she mentioned. A family member had noted hospitals in [place] and she is considering going to [facility]. No further action taken. documented in this encounter Plan of Treatment Not on file documented as of this encounter Visit Diagnoses Not on filedocumented in this encounter Care Teams Artificial Breast Fabricator Relationship Specialty Start Date End Date Lyly Fiore NP [address] [place] [address] PCP - General Nurse Practitioner 05/29/24 Beatriz Lee MD [address] [place] [address] Referring Physician Gastroenterology 07/25/19 Taylor Kitchen, qualitative field project managerNeurologist 05/29/24 documented as of this encounter
--- OUTSIDE RECORDS SUMMARY | 2024-07-20 15:19 | XMS_ITS | Encounter Summary ---
Author Organization [facility] Healthcare Address [address] [place] [address] Care Team Providers Care Patient Services Assistant Name Role Phone Beatriz Lee MD Unavailable [phone] Lyly Fiore OIL PIPE INSPECTOR HELPER Primary Care Provider Taylor Kitchen RN Unavailable Unav ailable Encounter Details Date Type Department Care Team (Late st Contact Info) Description 07/17/2024 Telephone [facility] Transplant Liver [address] [facility] [phone] [place] [address] Lorena Turner Social History Tobacco Use Types [...] on file Legal Sex Female 10:10 PM ZOO VETERINARIAN Gender Identity Not on file Sexual Orientation Not on file documented as of this encounter Miscellaneous Notes * Telephone Encounter - Dafne Dukes RN - 07/18/2024 1:11 PM CDT Will ask admin in the office today to mail copy of [facility] ARELIS form to patient to be mailed back for release of liver/kidney biopsy slides. * Telephone Encounter - Lorena Turner - 07/17/2024 10:31 AM CDT Per [facility] re: request for Liver and Kidney biopsy slides (probably done in Oct or Nov 2023) [facility] PATH Sent By : Manuel Fox 07/17/2024 11:21:06 AM Uriel Carrillo, At this time we have to close this request as we are unable to obtain a signed auth from the patient after multiple attempts Thank You, Manuel documented in this encounter Plan of Treatment Not on file documented as of this encounter Visit Diagnoses Not on filedocumented in this encounter Care Teams Patient Services Assistant Relationship Specialty Start Date End Date Lyly Fiore NP [address] [place] [address] PCP - General Nurse Practitioner 05/29/24 Beatriz Lee MD [address] [place] [address] Referring Physician Gastroenterology 07/25/19 Taylor Kitchen, casino enforcement agentBarrel Washer 05/29/24 documented as of this encounter
--- OUTSIDE RECORDS SUMMARY | 2024-07-20 15:21 | XMS_ITS | Continuity of Care Document ---
Author Organization [facility] Address [address] [place] [address] Phone Care Team Providers Care Allergy And Immunology Chief Name Role Phone Santana Timmons MD Unavailable Unavailable Procedures Procedure Date Subsequent Hospital Care Initial Inpatient Consult Advance Directives Directive Yes / No Effective Date File Name No Information Encounters Encounter Description Practice Location Reason(s) For Visit Diagnoses Date Provider Providers Copied on Encounter Subsequent Hospital Care [facility], [address] [place] [address], [id number], tel:[phone] [facility] No Information 1 Shanelle Dillon. [address] [place] [address], [id number], [place]. tel:[phone] Referring Provider: Hermes Ramirez , [address] [place] [address], [address]. tel:[phone] Initial Inpatient Consult [facility], [address] [place] [address], [id number], tel:[phone] [facility] No Information Shanelle Dillon. [address] [place] [address], [id number], . tel:[phone] Referring Provider: Hermes Ramirez [address], [address]. tel:[phone] Family History Family Member Type Diagnosis Age At Onset No Information Payers Payer name Insurance type Covered republican ID Authoriza tiyoan(s) [facility] [id number] Social History Type Description Quantity Date Captured Comments Sex Female Smoking Status No Information Chief Complaint And Reason For Visit No Information History Of Present Illness Encounter Date Complaint History Of Prese nt Illness No Information Instructions Date Instruction Additional Infor mation No Information Assessments Type Assessment Date No Information
== END 2024-07-19 22:14 | disposition home or self-care (01) ==
PROVIDERS: Emergency Provider Emergency Medicine
DX: R51.9 Headache, unspecified (principal)
CPT/HCPCS: 81003; 81025; 96361; 96374; 96375; 99284; J1171; J1200; J2270; J2550; J7030

== ENCOUNTER 2024-07-24 14:38 | Emergency (ER) | payer OTHER, SELFPAY ==
[2024-07-24 14:38] VITALS: BP 144/86; PULSE 85; RESP 18; TEMP 36.1; O2SAT 98
--- NOTE | 2024-07-24 14:54 | ED.BACK ---
HPI - Back Pain/Injury General Chief Complaint: Back Pain/Injury Stated Complaint: back pain Time Seen by Provider: 07/24/24 14:52 Source: patient Mode of arrival: ambulatory Limitations: no limitations History of Present Illness HPI Narrative: 43-year-old female with a history of anxiety /depression status post liver kidney transplant, biliary atresia status post [place], spinal stenosis with chronic back pain, migraine presents to the ED with -- low back pain. Patient has chronic low back pain and gets injections for pain relief. Patient is due to see pain management. Patient went for physician's appointment at [facility]. The patient has been in the car all day which caused the back pain to flare up. No radiation of the pain. No bladder or bowel involvement. No paresthesias or sensory loss in the lower extremities. -- burning abdominal pain which is chronic. The patient ran out of her Protonix. MD elicited complaint: back pain Pertinent past history: prior back pain Onset (ago): unknown Timing: constant Severity: severe Similar Symptoms Previously: Yes Quality: aching Location: lumbar spine Radiation: none Exacerbating factors: movement Relieving factors: immobilization Associated symptoms: denies other symptoms Work related injury: No Related Data Allergies Allergy/AdvReac Type Severity Reaction Status Date / Time erythromycin base Allergy Intermediate Rash Verified 07/24/24 14:58 gentamicin Allergy Intermediate Rash Verified 07/24/24 14:58 ketorolac (From Toradol) AdvReac Severe Abdominal Verified 07/24/24 14:58 Pain NSAIDS (Non-Steroidal AdvReac Severe Abdominal Verified 07/24/24 14:58 Anti-Inflamma Pain Review of Systems Review of Systems: All systems reviewed & are unremarkable except as noted in HPI and below PMFSH Past Medical History Medical History Anxiety and depression Spinal stenosis DJD (degenerative joint disease) Migraine Biliary atresia Surgical History Surgical History Liver transplant recipient Exam Narrative: Afebrile. Vitals are stable. Const: General: no acute distress Orientation/consciousness: patient oriented x3 Limitations: no limitations HENMT: Head: normal to inspection Ears: external ears normal Face/Nose/Sinus: Normal external nose present Face and sinus: normal facial exam Mouth: Yes Normal oral and palatal mucosa present Throat: posterior oropharynx normal Eyes: Conjunctivae: conjunctivae normal Pupils: Equal, round and reactive pupils present EOM: EOMs intact bilaterally Direct Ophthalmoscopy: no photophobia Neck: Neck: normal visual inspection, no lymphadenopathy and no meningeal signs Chest: Chest palpation & inspection: normal inspection of the chest Resp: Effort & Inspection: normal respiratory effort Auscultation: clear to auscultation bilaterally Cardio: Rate: regular rate Rhythm: regular rhythm GI: Auscultation: normal bowel sounds Other: No tenderness/ rigidity / rebound. : General: Yes no CVA tenderness Back/Spine/Pelvis: Back: no CVA tenderness Other: no spinal tenderness. Straight-leg raising test is negative. Skin: General skin exam: normal color Rashes: no rashes Wounds: no wounds Neuro: General: patient oriented x3, moves all extremities, no meningeal signs, no focal motor deficits and CN's II-XI intact bilaterally Cranial nerves: Yes Nystagmus not present Speech: normal speech Gait exam (Neuro): Normal gait present Extrem: General: normal to inspection and no clubbing, cyanosis or edema Psych: Mental Status: mental status grossly normal Affect: normal affect Attitude: cooperative Course Course Emergency Course: Acute on chronic low back pain epigastric pain Vital Signs Vital signs: Vital Signs Temperature 36.1 C L 07/24/24 14:38 Pulse Rate 85 07/24/24 14:38 Respiratory Rate 18 07/24/24 14:38 Blood Pressure 144/86 H 07/24/24 14:38 Pulse Oximetry 98 07/24/24 14:38 Oxygen Delivery Room Air 07/24/24 14:38 Temperature 36.1 C L 07/24/24 14:38 Pulse Rate 85 07/24/24 14:38 Respiratory Rate 18 07/24/24 14:38 Blood Pressure 144/86 H 07/24/24 14:38 Pulse Oximetry 98 07/24/24 14:38 Oxygen Delivery Room Air 07/24/24 14:38 MDM - Back Pain/Injury MDM Narrative Medical decision making narrative: Chronic low back pain PUD/ chronic epigastric pain Differential Diagnosis Differential diagnosis: Likely lumbar radiculopathy and sciatica Medical Records Attestation: I reviewed the patient's medical records. Lab Data Attestation: I reviewed the patient's lab results. Discharge Plan Discharge Clinical Impression: PUD (peptic ulcer disease) Chronic low back pain Qualifiers: Back pain laterality: bilateral Sciatica presence: without sciatica Qualified Code(s): M54.50 - Low back pain, unspecified Patient Disposition: Home Condition: Stable Instructions: Antibiotic Form, Peptic Ulcer (ED), Chronic Back Pain (DC) Patient Language: Persian Follow-up/Referrals: UNKNOWN,DOCTOR [Non-Staff] - Time of Disposition: 15:10
--- OUTSIDE RECORDS SUMMARY | 2024-07-24 14:55 | XMS_ITS | Encounter Summary ---
Author Organization [facility] Address [address] [place] [address] Phone Care Team Providers Care Filter Pulp Washer Name Role Phone Beatriz Lee MD Unavailable [phone] Lyly Fiore CASKET ASSEMBLER METAL Primary Care Provider Taylor Kitchen RN Unavailable Unav ailable Reason for Referral * Consultation (Routine) - Pending Review Specialty Diagnoses / Procedures Referred By Contac t Referred To Contact Pain Management Diagnoses Lumbar spine pain Adolescent idiopathic scoliosis of thoracic region Chronic bilateral low back pain without sciatica Jessee Morton MD [address] [facility] [place] [address] Phone: tel: fax: Faby Puckett MD [address] [place] [address] Phone: tel: fax: Referral ID Status Reason Start Date Expiration Date Visits Requested Visits Authorized [id number] Pending Review Specialty Services Required 07/24/2024 08/23/2025 1 1 Question Answer Please select the performing region: [facility] [[id number]] To provider: FABY PUCKETT [[id number]] # of visits: 1 Comments Evaluate for potenital intracept procedure for LBP vs other * Diagnostic Imaging (Routine) - Closed Specialty Diagnoses / Procedures Referred By Contac t Referred To Contact Diagnoses Lumbar spine pain Adolescent idiopathic scoliosis of thoracic region Procedures XR Scoliosis 6 or More Views Jessee Morton MD [address] [facility] [place] [address] Phone: tel: fax: [facility] Referral ID Status Reason Start Date Expiration Date Visits Re quested Visits Authorized [id number] Closed 07/16/2024 08/15/2025 1 1 Reason for Visit * Reason Comments Pain * Consultation (Routine) - Closed Specialty Diagnoses / Procedures Referred By Contac t Referred To Contact Orthopedic Surgery Diagnoses Chronic bilateral low back pain without sciatica Patrick Hernandez MD [address] [address] [place] [address] Phone: tel: fax: [facility] (All Locations) Referral ID Status Reason Start Date Expiration Date V isits Requested Visits Authorized [id number] Closed Specialty Services Required 06/13/2024 07/13/2025 1 1 Encounter Details Date Type Department Care Team (Late st Contact Info) Description 07/24/2024 10:00 AM CDT Office Visit [facility] Orthopaedic Surgery [address] 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 Gender Identity Not on file Sexual Orientation Not on file documented as of this encounter Last Filed Vital Signs Vital Sign Reading Time Taken Comments Blood Pressure - - Pulse - - Temperature - - Respiratory Rate - - Oxygen Saturation - - Inhaled Oxygen Concentration - - Weight 88.8 kg (195 lb 12.8 oz) 025 11:00 AM CDT Height 158.8 cm (5' 2.5 ) 07/24/2024 11 :00 AM CDT Body Mass Index 35.24 07/24/2024 11:00 AM CDT documented in this encounter Plan of Treatment Scheduled Referrals Name Type Priority Associated Diagnoses Order Schedule Ambulatory referral to Pain Management Outpatient Referral Routine Lumbar spine pain Adolescent idiopathic scoliosis of thoracic region Chronic bilateral low back pain without sciatica 1 Occurrences starting 07/24/2024 until 07/24/2025 documented as of this encounter Results * XR Scoliosis 6 or More Views (07/24/2024 10:55 AM CDT) Anatomical Region Laterality Modality Spine N/A Computed Radiogr aphy 07/24/2024 11:3 6 AM CDT Impressions 07/24/2024 12:01 PM CDT Mild rotatory lumbar levoscoliosis with overall mild degenerative changes of the lumbar spine. Scoliosis improves on supine images. Dictated by: Zack Huang MD The radiology attending physician has personally reviewed this study, and had reviewed and/or edited this written report and agrees with it. Electronically signed by: Carlos Hayes D.O. Narrative 07/24/2024 12:01 PM CDT EXAMINATION: XR SCOLIOSIS 6 OR MORE VIEWS HISTORY: Back pain FINDINGS: Digitally acquired AP and lateral images from the skull through the feet including the entire spine and 4 views of the lumbar spine are submitted for interpretation with comparison to radiographs dated 03/23/2024. An EOS device was used. There is mild thoracic and thoracolumbar dextrocurvature and mild lumbar rotatory levoscoliosis. Scoliosis improves on supine views. There is no significant coronal imbalance, sagittal imbalance, or pelvic obliquity. There is overall mild multilevel degenerative disease of the lumbar spine with disc height loss and facet arthropathy. There is no dynamic listhesis. No fracture. Procedure Note Carlos Hayes, DO - 07/24/2024 EXAMINATION: XR SCOLIOSIS 6 OR MORE VIEWS HISTORY: Back pain FINDINGS: Digitally acquired AP and lateral images from the skull through the feet including the entire spine and 4 views of the lumbar spine are submitted for interpretation with comparison to radiographs dated 03/23/2024. An EOS device was used. There is mild thoracic and thoracolumbar dextrocurvature and mild lumbar rotatory levoscoliosis. Scoliosis improves on supine views. There is no significant coronal imbalance, sagittal imbalance, or pelvic obliquity. There is overall mild multilevel degenerative disease of the lumbar spine with disc height loss and facet arthropathy. There is no dynamic listhesis. No fracture. IMPRESSION: Mild rotatory lumbar levoscoliosis with overall mild degenerative changes of the lumbar spine. Scoliosis improves on supine images. Dictated by: Zack Huang MD The radiology attending physician has personally reviewed this study, and had reviewed and/or edited this written report and agrees with it. Electronically signed by: Carlos Hayes D.O. Jessee Morton MD IMG XR PROCEDURES Final Re sult documented in this encounter Visit Diagnoses Diagnosis Lumbar spine pain- Primary Adolescent idiopathic scoliosis of thoracic region Chronic bilateral low back pain without sciatica Lumbar spine pain Adolescent idiopathic scoliosis of thoracic region documented in this encounter Orders Outpatient Referral Count Last Ordered Date Fir st Ordered Date AMB REFERRAL TO ORTHOPEDIC SPINE 1 07/25/19 25 documented in this encounter Care Teams Filter Pulp Washer Relationship Specialty Start Date End Date Lyly Fiore NP [address] [place] [address] PCP - General Nurse Practitioner 05/29/24 Beatriz Lee MD [address] [place] [address] Referring Physician Gastroenterology 07/25/19 Taylor Kitchen, development plannerMachine Molder Squeeze 05/29/24 documented as of this encounter
--- OUTSIDE RECORDS SUMMARY | 2024-07-24 14:55 | XMS_ITS | Encounter Summary ---
Author Organization [facility] Address [address] [place] [address] Care Team Providers Care Faucets Assembler Name Role Phone Beatriz Lee MD Unavailable [phone] Lyly Fiore LOT TECHNICIAN Primary Care Provider Taylor Kitchen RN Unavailable Unav ailable Reason for Referral * Diagnostic Imaging (Routine) - Closed Specialty Diagnoses / Procedures Referred By Contac t Referred To Contact Diagnoses Lumbar spine pain Adolescent idiopathic scoliosis of thoracic region Procedures XR Scoliosis 6 or More Views Jessee Morton MD [address] [place] [address] Phone: tel: fax: [facility] Referral ID Status Reason Start Date Expiration Date Visits Re quested Visits Authorized [id number] Closed 07/16/2024 08/15/2025 1 1 Reason for Visit * Diagnostic Imaging (Routine) - Closed Specialty Diagnoses / Procedures Referred By Contac t Referred To Contact Diagnoses Lumbar spine pain Adolescent idiopathic scoliosis of thoracic region Procedures XR Scoliosis 6 or More Views Jessee Morton MD [address] [place] [address] Phone: tel: fax: [facility] Referral ID Status Reason Start Date Expiration Date Visits Re quested Visits Authorized [id number] Closed 07/16/2024 08/15/2025 1 1 Encounter Details Date Type Department Care Team (Latest Contact Info) Description 07/24/2024 9:45 AM CDT Hospital Encounter [facility] [address] [place] [address] Jessee Morton MD [address] [facility] [address] [place] [address] Lumbar spine pain; Adolescent idiopathic scoliosis of thoracic region Social History Tobacco Use Types Packs/Day Years [...] on file 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 Electronically signed by: Carlos Hayes D.O. us Jessee Morton MD IMG XR PROCEDURES Final Re sult documented in this encounter Visit Diagnoses Diagnosis Lumbar spine pain Adolescent idiopathic scoliosis of thoracic region documented in this encounter Care Teams Faucets Assembler Relationship Specialty Start Date End Date Lyly Fiore NP [address] [place] [address] PCP - General Nurse Practitioner 05/29/24 Beatriz Lee MD [address] [place] [address] Referring Physician Gastroenterology 07/25/19 Taylor Kitchen, pressure steamer tenderChina Painter 05/29/24 documented as of this encounter
--- OUTSIDE RECORDS SUMMARY | 2024-07-24 14:55 | XMS_ITS | Encounter Summary ---
Author Organization [facility] Address [address] [place] [address] Care Team Providers Care Convention Worker Name Role Phone Beatriz Lee MD Unavailable [phone] Lyly Fiore LAW LIBRARIAN Primary Care Provider Taylor Kitchen RN Unavailable Unav ailable Encounter Details Date Type Department Care Team (Late st Contact Info) Description 07/24/2024 Telephone [facility] Transplant Liver [address] [facility] [phone] [place] [address] Lorena Turner Social History Tobacco Use Types [...] on file 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 This form was faxed to [facility] medical records along with 06/26/24 request for liver and kidney biopsy slides documented in this encounter Plan of Treatment Not on file documented as of this encounter Visit Diagnoses Not on filedocumented in this encounter Care Teams Convention Worker Relationship Specialty Start Date End Date Lyly Fiore NP [address] [place] [address] PCP - General Nurse Practitioner 05/29/24 Beatriz Lee MD [address] [place] [address] Referring Physician Gastroenterology 07/25/19 Taylor Kitchen, hoisting pile driving engineerUtilities Manager 05/29/24 documented as of this encounter
--- OUTSIDE RECORDS SUMMARY | 2024-07-24 14:55 | XMS_ITS | Clinical Summary ---
Author Organization [facility] Address [facility] [place] [address] Care Team Providers Care Global Lead Name Role Phone ChelsyLyly schaefer ELISA Primary Care Provider Allergies Active Allergy Reactions Criticality Noted Date [...] Problem Noted Date Diagnosed Date Acute CHF ([facility]) 02/20/2024 Viral infection 02/20/2024 Rectus sheath hematoma, initial encounter 2017 Cervical dysplasia 10/26/2016 History of vulvar dysplasia 10/26/2016 Gastric ulcer 10/24/2016 Pancreatitis ([facility]) 10/24/2016 Chronic kidney disease 10/24/2016 Anemia, unspecified 05/04/2012 Benign gestational thrombocytopenia ([facility]) History of cone biopsy of cervix 01/04/2012 History of liver transplant ([facility]) Acute pharyngitis 11/19/2010 Abdominal pain 11/13/2010 Aphthous ulcer 11/01/2010 Anxiety 07/21/2010 Encounters Date Type Department Care Team Description 07/02/2024 1:12 PM CDT - 07/02/2024 2:05 PM CDT Emergency [facility] Emergency [address] [place] [address] Nichelle Ray NP Headache; Back Pain Discharge Disposition: Left Against Medical Advice 07/02/2024 Travel 05/13/2024 9:37 PM TRAVEL SPECIALIST - 05/13/2024 11:39 PM TRAVEL SPECIALIST Emergency [facility] Emergency [address] [place] [address] Beronica Lopez MD Headache Recurrent Or Know [...] any time in the past 12 m [facility], were you homeless or living in a senior living (including now)? No 02/20/2024 Comments No Sex and Gender Information Value Date Recorded Sex Assigned at Female 04/05/2024 4:26 PM TRAVEL SPECIALIST Legal Sex Female 9:15 PM TRAVEL SPECIALIST Gender Identity Not on file Sexual [...] HEAD WO CON STAT 05/13/2024 11:06 PM TRAVEL SPECIALIST HUMAN PAPILLOMAVIRUS, HIGH-RISK TYPES Routine 06/20/2022 12:00 PM CDT CYTOPATH CERV/VAG THIN LAYER Routine 06/20/2022 7:46 AM CDT from Last 3 Months or Most Recently Relevant to Health Maintenance Results * CT HEAD WO CON (05/13/2024 11:06 PM TRAVEL SPECIALIST) Anatomical Region Laterality Modality Head Computed Tomogra phy 05/13/2024 11:0 8 PM TRAVEL SPECIALIST Impressions 05/13/2024 11:09 PM TRAVEL SPECIALIST IMPRESSION: 1. No definite CT evidence of acute intracranial abnormality, as above. Referred By: Interpreted By: Isaiah Becerra MD, 05/13/2024 11:08 PM Narrative 05/13/2024 11:09 PM TRAVEL SPECIALIST [facility] [address] [place], [place] [address] EXAMINATION: CT of the head CLINICAL HISTORY: [...] Procedure Note Isaiah Becerra MD - 05/13/2024 [place] [address] EXAMINATION: CT of the head CLINICAL HISTORY: [...] CERVICAL/END OCERVICAL 06/22/2022 8:18 AM CDT [facility] HPV DNA HIGH RISK NEGATIVE NEGATIVE 06/22/2022 7:35 PM CDT [facility] Comment:SEE CYTOLOGY REPORT 06/20/2022 12:0 0 PM CDT us Sekou Scherer MD PATHOLOGY/CYTOLOGY ORDER KAREN Final Result [facility] [address] [place] [address], * Cytopath Cerv/Vag Thin Layer (06/20/2022 7:46 AM CDT) THIN PREP PAP [facility] [address] [place] [address] Department of Pathology Pathology Report CERVICAL/VAGINAL PAP SMEAR REPORT Name: MISHA JACKSON Age: 7 1980 (Age: 41) Location: [facility] Sex: F Collected Date: 06/20/2022 [facility] #: [id number] Date Received: 06/22/2022 Date Reported: 06/24/2022 Provider: [...] Cohen (ASCP) CLINICAL HISTORY Z12.4 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 [facility] 06/20/2022 7:46 AM CDT 06/22/2022 7:46 AM CDT Comment:CERVICAL/ENDOCERVICA L us Sekou Scherer MD PATHOLOGY/CYTOLOGY ORDER KAREN Final Result [facility] [address] [place] [address], from Last 3 Months or Most Recently Relevant to Health Maintenance Insurance [employer] Advance Directives * Full Code (Latest Code Status on File) Date Activated Date Inactivated Comments 02/20/2024 1:27 AM 02/20/2024 11:44 AM * Full Code Date Activated Date Inactivated Comments 06/21/2017 12:22 AM 06/21/2017 8:16 PM Care Teams Global Lead Relationship Specialty Start Date End Date Lyly Fiore NP [address] [place] [address] PCP - General NURSE PRACTITIONER 04/14/24
--- OUTSIDE RECORDS SUMMARY | 2024-07-24 14:55 | XMS_ITS | Clinical Summary ---
Author Organization [facility] Address [address] [place] [address] Phone Care Team Providers Care Senior Quality Assurance Specialist Name Role Phone Hermes Ramirez MD Primary Care Provider [phone] Allergies Active Allergy Reactions Criticality Noted Date [...] BEDTIME 2 Active Butalbital-APAP -Caff-Cod (Fioricet/Codei ne) 80-862-90-30 MG Capsule Take by mouth. 2 Active [...] this topic Insurance MEDICAID [place] [facility] Care Teams Senior Quality Assurance Specialist Relationship Specialty Start Date End Date Hermes Ramirez MD [address] [facility] [address] [place] [address] PCP - General Family Medicine 05/09/18
--- OUTSIDE RECORDS SUMMARY | 2024-07-24 14:55 | XMS_ITS | Encounter Summary ---
Author Organization [facility] Address [facility] [place] [address] Care Team Providers Care Distribution Tech Name Role Phone Ashley ZUNIGA MD, Hermes Perez Primary Care Provid er Lyly Fiore NP Primary Care Provider [phone] Encounter Details Date Type Department Care Team (Late st Contact Info) Description 02/22/2024 Hospital Follow-up Call [facility] Cardiovascular Care Unit [address] [place] [address] Zulma Ardon, RN Social History Tobacco Use [...] time in the past 12 m [facility], were you homeless or living in a custodial (including now)? No 02/20/2024 Comments No Sex and Gender Information Value Date Recorded Sex Assigned at Female 04/05/2024 4:26 PM INSOLE TAPER Legal Sex Female 9:15 PM INSOLE TAPER Gender Identity Not on file Sexual Orientation [...] Assessment Author Status No 02/20/2024 4:08 AM Gabrielle Andino RN Active * Because of a physical, mental, or emotional condition, do you have difficulty doing errands alone such as visiting a doctor's office or shopping? Answer Date of Assessment Author Status No 02/20/2024 4:08 AM INSOLE TAPER Kimmy Hayes RN Active documented as of this encounter Mental Status * Because of a physical, mental, or emotional condition, do you have serious difficulty concentrating, remembering, or making decisions? Answer Entry Date Author Status No 02/20/2024 4:08 AM INSOLE TAPER Kimmy Hayes RN Active documented in this encounter Plan of Treatment Not on file documented as of this encounter Visit Diagnoses Not on filedocumented in this encounter Additional Health Concerns Infection Onset Date Last Indicated Resolved Time Rhinovirus 02/16/2024 02/16/2024 02/26/2024 12:3 2 AM INSOLE TAPER documented as of this encounter Care Teams Distribution Tech Relationship Specialty Start Date End Date Hermes Ramirez III, MD [address] [address] PCP - General FAMILY PRACTICE 06/20/17 04/13/24 Lyly Fiore NP [address] [place] [address] PCP - General NURSE PRACTITIONER 04/14/24 documented as of this encounter
--- OUTSIDE RECORDS SUMMARY | 2024-07-24 14:56 | XMS_ITS | Referral Summary ---
Author Organization [facility] Address [address] [place] [address] Care Team Providers Care Warehouse Helper Name Role Phone Beatriz Lee MD Unavailable [phone]- [phone] Lyly Fiore NP Primary Care Provider Taylor Kitchen RN Unavailable Unav ailable Encounters Date Type Department Care Team Description 07/24/2024 Telephone [facility] Transplant Liver [address] [facility] [address] Mailstop [id number] [place] [address] Lorena Turner 07/24/2024 9:45 AM CDT Hospital Encounter [facility] [address] [place] [address] Jessee Morton MD Lumbar spine pain; Adolescent idiopathic scoliosis of thoracic region 07/24/2024 10:00 AM CDT Office Visit [facility] Orthopaedic Surgery [address] [facility] 6th [place] [address] [place] [address] Jessee Morton MD Lumbar spine pain (Primary Dx); Adolescent idiopathic scoliosis of thoracic region; Chronic bilateral low back pain without sciatica 07/22/2024 Telephone [facility] Transplant Liver [address] [facility] [address] Mailstop 32-25-607 [place] [address] Dafne Dukes RN 07/19/2024 Telephone [facility] Transplant Liver [address] [facility] [address] Mailstop 57-74-183 [place] [address] Karmen Garsia RN After Hours; Abdominal Pain 07/17/2024 Telephone [facility] Transplant Liver [address] [facility] [address] Mailstop -98-838 [place] [address] Lorena Turner 07/12/2024 5:48 PM CDT - 07/12/2024 11:59 PM CDT Hospital Encounter [facility]) [address] [place] [address] Discharge Disposition: Discharge to home or self care 07/12/2024 5:46 PM CDT - 07/12/2024 11:59 PM CDT Hospital Encounter [facility] ([facility]) [address] [place] [address] Discharge Disposition: Discharge to home or self care 07/12/2024 5:44 PM CDT - 07/12/2024 11:59 PM CDT Hospital Encounter [facility] ([facility]) [address] [place] [address] Discharge Disposition: Discharge to home or self care 07/12/2024 5:43 PM CDT - 07/12/2024 11:59 PM CDT Hospital Encounter [facility] ([facility]) [address] [place] [address] Discharge Disposition: Discharge to home or self care 07/12/2024 Telephone [facility] Nephrology [address] [facility] 5th [place] [address] [place] [address] Wilson Swift MD 07/11/2024 Telephone [facility] Transplant Liver [address] [facility] [address] Mailstop -23-604 [place] [address] Dafne Dukes RN 07/11/2024 Telephone [facility] Transplant Liver [address] [facility] [address] Mailstop [phone] [place] [address] Yulisa Welch 07/10/2024 Telephone [facility] Transplant Liver [address] [facility] [address] Mailstop 90-28-446 [place] [address] Liyah Kamara 07/09/2024 Telephone [facility] Transplant Liver [address] [facility] [address] Mailstop 9029-810 [place] [address] Dafne Dukes RN 07/09/2024 Telephone [facility] Transplant Liver [address] [facility] [address] Mailstop 11-92-121 [place] [address] Yulisa Welch 07/09/2024 8:48 AM CDT - 07/09/2024 11:59 PM CDT Hospital Encounter [facility] ([facility]) [address] [place] [address] Discharge Disposition: Discharge to home or self care 07/09/2024 8:46 AM CDT - 07/09/2024 11:59 PM CDT Hospital Encounter [facility]) [address] [place] [address] Discharge Disposition: Discharge to home or self care 07/09/2024 8:44 AM CDT - 07/09/2024 11:59 PM CDT Hospital Encounter [facility]) [address] [place] [address] Discharge Disposition: Discharge to home or self care 07/04/2024 Telephone [facility] Transplant Liver [address] [facility] [address] Mailstop 90-94-571 [place] [address] Lorena Turner 07/04/2024 Telephone [facility] Transplant Liver [address] [facility] [address] Mailstop 9029-665 [place] [address] Lorena Turner 07/03/2024 Telephone [facility] Transplant Liver [address] [facility] [address] [place] [address] Dafne Dukes, ANSON 07/02/2024 Telephone [facility] Transplant Liver [address] [place], [place] [address] [place] [address] Dafne Dukes, ANSON 07/02/2024 Telephone [facility] Transplant Liver [address] [place], [place] [address] [place] [address] Dafne Dukes, ANSON 06/26/2024 Orders Only [facility] Transplant Liver [address] [place], [place] [address] [place] [address] Dafne Dukes, ANSON Status post liver transplant (HCC) (Primary Dx); Encounter for long-term (current) use of medications 06/26/2024 Telephone [facility] Transplant Liver [address] [place], [place] [address] [place] [address] Lorena Turner 06/26/2024 Orders Only [facility] Transplant Liver [address] [place], [place] [address] [place] [address] Dafne Dukes, ANSON History of liver transplant (HCC) (Primary Dx); Encounter for long-term (current) use of medications 06/26/2024 Documentation [facility] Transplant Liver [address] [place], [place] [address] [place] [address] Dafne Dukes, ANSON 06/26/2024 Telephone [facility] Transplant Liver [address] [place], [place] [address] [place] [address] Dafne Dukes, ANSON 06/26/2024 9:30 AM CDT Office Visit [facility] Gasteroenterology [address] [facility] 12th [place] [address] [place] [address] Beatriz Lee MD Nicotine dependence with current use 06/14/2024 SHOP/CHAP Initial Eligibility Review [facility] OP CASE MANAGEMENT [address] [place] [address] Shireen Griffin RN 06/13/2024 Orders Only [facility] Transplant Liver [address] [facility] [address] Mailstop -[phone] [place] [address] Dafne Dukes RN Kidney transplanted (Primary Dx) 05/29/2024 3:11 PM CDT - 06/13/2024 3:04 PM CDT Hospital Encounter [facility] [address] [place] [address] Jessee Mandel MD Edwards, MD Pooja Felix, MD Scout Levin, MD David Santos, Patrick José MD Abdominal pain (Primary Dx); CHRISTY (acute kidney injury); Chronic generalized pain [R52, G89.29]; High risk medication use [Z79.899]; Hyperkalemia; Chronic bilateral low back pain without sciatica; 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 Discharge Disposition: Discharge to home or self care 06/06/2024 Telephone [facility] Transplant Kidney [address] [facility] [address] Mailstop 02-78-155 [place] [address] Netta Mcintosh 05/09/2024 Telephone [facility] Transplant Liver [address] [facility] [address] Mail[address] 32-48-856 [place] [address] Liyah Kamara 05/07/2024 Telephone [facility] Transplant Liver [address] [facility] [address] Mailstop 90-64-153 [place] [address] Lorena Turner 05/07/2024 Telephone [facility] Transplant Liver [address] [facility] [address] Mailstop 43-60-514 [place] [address] Lorena Turner 05/06/2024 Documentation [facility] Transplant Liver [address] [facility] [address] Mailstop 34-23-864 [place] [address] Taylor Kitchen RN 05/06/2024 Telephone [facility] Transplant Liver [address] [facility] [address] Mail[address] 83-00-381 [place] [address] Lorena Turner Referral - Liver Txp from [...] mg total) by mouth daily 360 tablet 06/27/19 026 Active azaTHIOprine (IMURAN) 100 mg tablet Take 1 tablet (100 mg total) by mouth daily 30 tablet 06/27/19 026 Active predniSONE (DELTASONE) 5 mg tablet Take 1 tablet (5 mg) by mouth daily 30 tablet 06/27/19 026 Active azaTHIOprine (IMURAN) 100 mg tablet Take 1 tablet (100 mg total) by mouth daily 30 tablet 06/14/19 25 025 Discontinu ed(Reorder ) predniSONE [...] different from the original. Lab: [facility]. . . Pharmacy: [place], [place] Patient enrolled in [employer] assistance program [...] Transplant starting process of assuming care from [facility], but in short term they recommend patient follow up with renal transplant at [facility]. - She is NOW actively enrolled in the [employer] free patient assistance program through mar 2025 - script needs to be sent to [facility] (sent). Hyperbilirubinemia 04/16/2020 Assessment & Plan (04/16/2020 5:01 AM FLIGHT STEWARD): - T. Bili of 7 (last was [...] 07/25/2019 Assessment & Plan (04/16/2020 2:25 AM FLIGHT STEWARD): See hyperbili problem. Concern for ascites Assessment [...] 12/14/2016 Assessment & Plan (04/16/2020 2:26 AM FLIGHT STEWARD): - Chronic, concerned that this may be [...] liver and kidney transplant 04/2020. 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 We would need to call [facility] to identify a contracted center ([phone]). She lives close enough to [place] that would be the most likely city she could travel to. She also noted that she could always remarry an ex- as he has insurance that may be covered at [facility]. Appreciate note from nephrology and agree with restarting oral diuretics. Can continue tacrolimus at the current dose. MRI/MRCP completed and will review with radiology to identify if any role for PTC. 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 Poor follow up with Dr. Crippin. Poor compliance with tacro - check tacro [...] meds Assessment & Plan (04/16/2020 5:01 AM FLIGHT STEWARD): Unclear if progression of CKD vs acute [...] Cr of 1.8. She follows with local dyed raw stock blower feeder Dr. Mathew and thinks her baseline is 2.1. She was at 2.3 at [facility]. She took some diuretics at home and was given lasix at [facility]SH ED. --UA, urine lytes --get records from her dyed raw stock blower feeder to find out baseline --random tacro level [...] on file Legal Sex Female 10:10 PM FLIGHT STEWARD Gender Identity Not on file Sexual Orientation Not on file Last Filed Vital Signs Vital Sign Reading Time Taken Comments Blood Pressure 146/88 06/26/2024 9:52 AM CDT Pulse 63 06/26/2024 9:52 AM CDT Temperature 36.9 C (98.4 F) 06/26/2024 9:52 AM CDT Respiratory Rate 18 06/13/2024 9:14 AM CDT Oxygen Saturation 98% 06/26/2024 9: 52 AM CDT Inhaled Oxygen Concentration - - Weight 88.8 kg (195 lb 12.8 oz) 025 11:00 AM CDT Height 158.8 cm (5' 2.5 ) 07/24/2024 11 :00 AM CDT Body Mass Index 35.24 07/24/2024 11:00 AM CDT Plan of Treatment Not on file Procedures Procedure Name Priority Date/Time Associated Diagnosis Comments XR SCOLIOSIS 6 OR MORE VIEWS Schedule Routine, Read Routine (OP Routine) 07/24/2024 10:55 AM CDT Lumbar spine pain Adolescent idiopathic scoliosis of thoracic region NEURO CT OUTSIDE REFERENCE Routine 07/12/2024 5:48 [...] CDT HEPATITIS PANEL, ACUTE Routine 6:35 AM FLIGHT STEWARD from Last 3 Months or Most Recently Relevant to Health Maintenance Results * XR Scoliosis 6 or More [...] dynamic listhesis. No fracture. Procedure Note Carlos Hayes DO - 07/24/2024 EXAMINATION: XR SCOLIOSIS 6 [...] MD IMG XR PROCEDURES Final Re sult * Neuro CT Outside Reference (07/12/2024 5:48 PM CDT) Impressions [facility] - 07/12/2024 5:48 PM CDT These images are for Reference purposes only and have not been reviewed by [facility]. There will be no report generated by a [facility] Radiologist. Narrative [facility] - 07/12/2024 5:48 PM CDT EXAMINATION: Images For Reference Purposes Only Result [facility] Jessee Morton MD IMG CT PROCEDURES Final Re sult Performing Organization Address [facility] de Phone Number [email or web address] * Neuro CT Outside Reference (07/12/2024 5:46 PM CDT) Impressions [facility] - 07/12/2024 5:46 PM CDT These images are for Reference purposes only and have not been reviewed by [facility]. There will be no report generated by a [facility] Radiologist. Narrative [facility] - 07/12/2024 5:46 PM CDT EXAMINATION: Images For Reference Purposes Only Jessee Morton MD IMG CT PROCEDURES Final Re sult Performing Organization Address [facility] Co de Phone Number [email or web address] * Neuro MR Outside Reference (07/12/2024 5:44 PM CDT) Impressions [facility] - 07/12/2024 5:44 PM CDT These images are for Reference purposes only and have not been reviewed by [facility]. There will be no report generated by a [facility] Radiologist. Narrative [facility] - 07/12/2024 5:44 PM CDT EXAMINATION: Images For Reference Purposes Only Jessee Morton MD IMG MRI PROCEDURES Final R esult Performing Organization Address [facility] de Phone Number [email or web address] * Neuro MR Outside Reference (07/12/2024 5:43 PM CDT) Impressions [facility] - 07/12/2024 5:43 PM CDT These images are for Reference purposes only and have not been reviewed by [facility]. There will be no report generated by a [facility] Radiologist. Narrative [facility] - 07/12/2024 5:43 PM CDT EXAMINATION: Images For Reference Purposes Only Result [facility] Jessee Morton MD IMG MRI PROCEDURES Final R esult Performing Organization Address [facility] de Phone Number [email or web address] * XR Outside Reference (07/09/2024 8:48 AM CDT) Impressions [facility] - 07/09/2024 8:48 AM CDT These images are for Reference purposes only and have not been reviewed by [facility]. There will be no report generated by a [facility] Radiologist. Narrative [facility] - 07/09/2024 8:48 AM CDT EXAMINATION: Images For Reference Purposes Only Jessee Morton MD IMG XR PROCEDURES Final Re sult Performing Organization Address [facility] de Phone Number [email or web address] * XR Outside Reference (07/09/2024 8:46 AM CDT) Impressions [facility] - 07/09/2024 8:46 AM CDT These images are for Reference purposes only and have not been reviewed by [facility]. There will be no report generated by a [facility] Radiologist. Narrative [facility] - 07/09/2024 8:46 AM CDT EXAMINATION: Images For Reference Purposes Only Jessee Morton MD IMG XR PROCEDURES Final Re sult Performing Organization Address [facility]/ZIP Co de Phone Number [email or web address] * XR Outside Reference (07/09/2024 8:44 AM CDT) Impressions [facility] - 07/09/2024 8:44 AM CDT These images are for Reference purposes only and have not been reviewed by [facility]. There will be no report generated by a [facility] Radiologist. Narrative [facility] - 07/09/2024 8:44 AM CDT EXAMINATION: Images For Reference Purposes Only Jessee Morton MD IMG XR PROCEDURES Final Re sult Performing Organization Address [facility] Co de Phone Number [email or web address] * (ABNORMAL) [...] MD PhD LAB BLOOD ORDERABLES Final Result [facility] Department [place] [address] * Differential, auto (06/13/2024 5:15 AM CDT) Neutrophil abs 3.2 1.5 - 6.5 K/cumm Imm gran abs 0.0 0.0 - 0.1 K/cumm [facility] Lymphocyte abs 0.9 0.8 - 3.3 K/cumm [facility] Monocyte abs 0.3 0.2 - 0.8 K/cumm [facility] Eosinophil abs 0.2 0.0 - 0.5 K/cumm [facility] Basophil abs 0.0 0.0 - 0.1 K[facility]cumm [facility] Neutrophil pct 69.4 % [facility] Comment: Interpretive Data Percent cell count reference ranges are not reported, since discordance with absolute values may lead to misinterpretation of CBC data. Current Interpretive Data was last revised on 2017. Imm gran pct 0.2 % [facility] Comment: Interpretive Data Percent cell count reference ranges are not reported, since discordance with absolute values may lead to misinterpretation of CBC data. Current Interpretive Data was last revised on 2017. Lymphocyte pct 20.4 % [facility] Comment: Interpretive Data Percent cell count reference ranges are not reported, since discordance with absolute values may lead to misinterpretation of CBC data. Current Interpretive Data was last revised on 2017. Monocyte pct 5.9 % [facility] Comment: Interpretive Data Percent cell count reference ranges are not reported, since discordance with absolute values may lead to misinterpretation of CBC data. Current Interpretive Data was last revised on 2017. Eosinophil pct 3.9 % [facility] Comment: Interpretive Data Percent cell count reference ranges are not reported, since discordance with absolute values may lead to misinterpretation of CBC data. Current Interpretive Data was last revised on 2017. Basophil pct 0.2 % [facility] Comment: Interpretive Data Percent cell count reference ranges are not reported, since discordance with absolute values may lead to misinterpretation of CBC data. Current Interpretive Data was last revised on 2017. Blood 06/13/2024 5:15 AM CDT 06/13/2024 6:05 AM CDT Martha Butterfield MD LAB BLOOD ORDERABLES F inal Result Performing Organization Address [facility]/ZIP Co de Phone Number [facility] Department [place] [address] * Tacrolimus level trough (06/13/2024 5:15 AM CDT) [facility] Signature Tacrolimus trough 7.4 ng/mL Comment: Interpretive Data Testing performed by liquid chromatography-tandem mass spectrometry. Therapeutic concentrations vary depending on type of transplanted organ and time elapsed since transplant. Typical trough concentrations range from 5-15 ng/mL. This test was developed and its performance characteristics determined by the [facility] Laboratory consistent with CLIA requirements. This test has not been cleared or approved by the [place] Food and Drug administration. Current interpretive data last reviewed 2019. Blood 06/13/2024 5:15 AM CDT 06/13/2024 6:05 AM CDT Patricia Davidson MD PhD LAB BLOOD ORDERABLES Final Result Performing Organization Address City/[facility]/ZIP Co de Phone Number [facility] [place] [address] * (ABNORMAL) CBC with auto differential (06/13/2024 5:15 AM CDT) [facility] WBC 4.6 3.8 - 9.9 K/cumm Hgb 11.1(L) 11.9 - 15.5 g/dL [facility] Hct 32.8(L) 35.6 - 45.5 % [facility] Plt 112(L) 150 - 400 K/cumm [facility] MPV 11.6 9.1 - 12.3 fL [facility] RBC 3.13(L) 3.90 - 5.20 M/cumm [facility] MCV 104.8(H) 81.3 - 96.4 fL [facility] MCH 35.5(H) 27.1 - 33.3 pg [facility] MCHC 33.8 32.3 - 35.7 g/dL [facility] RDW CV 14.8 11.1 - 14.9 % [facility] RDW SD 56.5(H) 35.7 - 48.1 fL [facility] NRBC abs 0.00 0.00 - 0.01 K/cumm [facility] Blood 06/13/2024 5:15 AM CDT 06/13/2024 6:05 AM CDT us Martha Butterfield MD LAB BLOOD ORDERABLES F inal Result [facility] Department [place] [address] * (ABNORMAL) Renal function panel (06/13/2024 5:15 AM CDT) [facility] Sodium 144 135 - 145 mmol/L Potassium, pl 4.9 3.3 - 4.9 mmol/L [facility] Chloride 111(H) 97 - 110 mmol/L [facility] CO2 25 22 - 32 mmol/L [facility] Anion gap 8 2 - 15 mmol/L [facility] BUN 27(H) 6 - 25 mg/dL [facility] Creatinine 2.03(H) 0.60 - 1.10 mg/dL [facility] Glucose 121 70 - 199 mg/dL [facility] Comment: Interpretive Data Fasting glucose >/= 126 [...] 2022. Calcium 8.6 8.5 - 10.3 mg/dL [facility] Phosphorus, pl 3.9 2.3 - 4.5 mg/dL [facility] Albumin 3.6 3.5 - 5.0 g/dL [facility] Blood 06/13/2024 5:15 AM CDT 06/13/2024 6:05 AM CDT us Patricia Davidson MD PhD LAB BLOOD ORDERABLES Final Result [facility] Department [place] [address] * (ABNORMAL) eGFR (06/12/2024 5:52 AM CDT) [...] BLOOD ORDERABLES Final Result Performing Organization Address [facility] Phone Number [facility] [place] [employer] [place] [address] * Tacrolimus level trough (06/12/2024 5:52 AM CDT) Pathologist [facility] Tacrolimus trough 6.2 ng/mL Comment: Interpretive Data Testing performed by liquid chromatography-tandem mass spectrometry. Therapeutic concentrations vary depending on type of transplanted organ and time elapsed since transplant. Typical trough concentrations range from 5-15 ng/mL. This test was developed and its performance characteristics determined by the [facility] consistent with CLIA requirements. This test has not been cleared or approved by the US Food and Drug administration. Current interpretive data last reviewed 2019. Blood 06/12/2024 5:52 AM CDT 06/12/2024 6:18 AM CDT Patricia Davidson MD PhD LAB BLOOD ORDERABLES Final Result Performing Organization Address [facility] [place] [address] * (ABNORMAL) Renal function panel (06/12/2024 5:52 AM CDT) Sodium 145 135 - 145 mmol/L Potassium, pl 5.0(H) 3.3 - 4.9 mmol/L [facility] Chloride 112(H) 97 - 110 mmol/L [facility] CO2 27 22 - 32 mmol/L [facility] Anion gap 6 2 - 15 mmol/L [facility] BUN 30(H) 6 - 25 mg/dL [facility] Creatinine 2.16(H) 0.60 - 1.10 mg/dL [facility] Glucose 101 70 - 199 mg/dL [facility] Comment: Interpretive Data Fasting glucose >/= 126 [...] 2022. Calcium 8.7 8.5 - 10.3 mg/dL [facility] Phosphorus, pl 4.3 2.3 - 4.5 mg/dL [facility] Albumin 3.4(L) 3.5 - 5.0 g/dL [facility] Blood 06/12/2024 5:52 AM CDT 06/12/2024 6:17 AM CDT us Patricia Davidson MD PhD LAB BLOOD ORDERABLES Final Result [facility] Department [place] [employer] [place] [address] * Potassium, whole blood (06/11/2024 11:29 PM CDT) Pathologist [facility] Potassium, bld 4.7 3.3 - 4.9 mmol/L Blood 06/11/2024 11:2 9 PM CDT 06/11/2024 11:48 PM CDT us Patrick Hernandez MD LAB BLOOD ORDERABLES Fi nal Result [facility] Department [place] [address] * (ABNORMAL) eGFR (06/11/2024 5:14 AM CDT) Pathologist [facility] eGFR 28(L) >=60 mL/min/1. 73 m2 Comment: [...] MD PhD LAB BLOOD ORDERABLES Final Result [facility] Department [place] [address] * Differential, auto (06/11/2024 5:14 AM CDT) Pathologist [facility] Neutrophil abs 2.3 1.5 - 6.5 K/cumm Imm gran abs 0.0 0.0 - 0.1 K/cumm [facility] Lymphocyte abs 1.0 0.8 - 3.3 K/cumm [facility] Monocyte abs 0.3 0.2 - 0.8 K/cumm [facility] Eosinophil abs 0.2 0.0 - 0.5 K/cumm [facility] Basophil abs 0.0 0.0 - 0.1 K/cumm [facility] Neutrophil pct 61.8 % [facility] Comment: Interpretive Data Percent cell count reference ranges are not reported, since discordance with absolute values may lead to misinterpretation of CBC data. Current Interpretive Data was last revised on 2017. Imm gran pct 0.5 % [facility] Comment: Interpretive Data Percent cell count reference ranges are not reported, since discordance with absolute values may lead to misinterpretation of CBC data. Current Interpretive Data was last revised on 2017. Lymphocyte pct 26.6 % [facility] Comment: Interpretive Data Percent cell count reference ranges are not reported, since discordance with absolute values may lead to misinterpretation of CBC data. Current Interpretive Data was last revised on 2017. Monocyte pct 6.6 % [facility] Comment: Interpretive Data Percent cell count reference ranges are not reported, since discordance with absolute values may lead to misinterpretation of CBC data. Current Interpretive Data was last revised on 2017. Eosinophil pct 4.2 % [facility] Comment: Interpretive Data Percent cell count reference ranges are not reported, since discordance with absolute values may lead to misinterpretation of CBC data. Current Interpretive Data was last revised on 2017. Basophil pct 0.3 % [facility] Comment: Interpretive Data Percent cell count reference ranges are not reported, since discordance with absolute values may lead to misinterpretation of CBC data. Current Interpretive Data was last revised on 2017. Blood 06/11/2024 5:14 AM CDT 06/11/2024 6:24 AM CDT Martha Butterfield MD LAB BLOOD ORDERABLES F inal Result [facility] Department [place] [address] * Tacrolimus level trough (06/11/2024 5:14 AM CDT) Tacrolimus trough 5.4 ng/mL Comment: Interpretive Data Testing performed by liquid chromatography-tandem mass spectrometry. Therapeutic concentrations vary depending on type of transplanted organ and time elapsed since transplant. Typical trough concentrations range from 5-15 ng/mL. This test was developed and its performance characteristics determined by the [facility] consistent with CLIA requirements. This test has not been cleared or approved by the US Food and Drug administration. Current interpretive data last reviewed 2019. Blood 06/11/2024 5:14 AM CDT 06/11/2024 5:51 AM CDT Patricia Davidson MD PhD LAB BLOOD ORDERABLES Final Result Performing Organization Address [facility] de Phone Number [facility] [place] [employer] [place] [address] * (ABNORMAL) CBC with auto differential (06/11/2024 5:14 AM CDT) Pathologist [facility] WBC 3.8 3.8 - 9.9 K/cumm Hgb 10.3(L) 11.9 - 15.5 g/dL [facility] Hct 30.0(L) 35.6 - 45.5 % [facility] Plt 93(L) 150 - 400 K/cumm [facility] MPV 11.5 9.1 - 12.3 fL [facility] RBC 2.82(L) 3.90 - 5.20 M/cumm [facility] MCV 106.4(H) 81.3 - 96.4 fL [facility] MCH 36.5(H) 27.1 - 33.3 pg [facility] MCHC 34.3 32.3 - 35.7 g/dL [facility] RDW CV 14.5 11.1 - 14.9 % [facility] RDW SD 55.4(H) 35.7 - 48.1 fL [facility] NRBC abs 0.00 0.00 - 0.01 K/cumm [facility] Blood 06/11/2024 5:14 AM CDT 06/11/2024 6:24 AM CDT Martha Butterfield MD LAB BLOOD ORDERABLES F inal Result Performing Organization Address [facility] Co de Phone Number [facility] [place] [employer] [place] [address] * (ABNORMAL) Renal function panel (06/11/2024 5:14 AM CDT) Sodium 141 135 - 145 mmol/L Potassium, pl 4.6 3.3 - 4.9 mmol/L [facility] Chloride 109 97 - 110 mmol/L [facility] CO2 23 22 - 32 mmol/L [facility] Anion gap 9 2 - 15 mmol/L [facility] BUN 29(H) 6 - 25 mg/dL [facility] Creatinine 2.24(H) 0.60 - 1.10 mg/dL [facility] Glucose 133 70 - 199 mg/dL [facility] Comment: Interpretive Data Fasting glucose >/= 126 [...] 2022. Calcium 8.6 8.5 - 10.3 mg/dL [facility] Phosphorus, pl 3.8 2.3 - 4.5 mg/dL [facility] Albumin 3.4(L) 3.5 - 5.0 g/dL [facility] Blood 06/11/2024 5:14 AM CDT 06/11/2024 5:51 AM CDT us Patricia Davidson MD PhD LAB BLOOD ORDERABLES Final Result [facility] [place] [address] * Potassium, whole blood (06/10/2024 10:18 PM CDT) Potassium, bld 4.7 3.3 - 4.9 mmol/L Blood 06/10/2024 10:1 8 PM CDT 06/10/2024 11:20 PM CDT Martha Butterfield MD LAB BLOOD ORDERABLES F inal Result Performing Organization Address [facility] [place] [address] * POCT glucose (06/10/2024 1:15 PM CDT) Glucose, POC 145 70 - 199 mg/dL Blood 06/10/2024 1:15 PM CDT 06/10/2024 1:15 PM CDT Martha Butterfield MD LAB POCT ORDERABLES - DEVICE Final Result Performing Organization Address [facility] [place] [address] * Potassium (06/10/2024 10:34 AM CDT) Potassium, pl 4.7 3.3 - 4.9 mmol/L Blood 06/10/2024 10:3 4 AM CDT 06/10/2024 11:28 AM CDT Martha Butterfield MD LAB BLOOD ORDERABLES F inal Result Performing Organization Address [facility] [place] [address] * (ABNORMAL) Hepatic function panel (06/10/2024 10:34 AM CDT) Bilirubin, total 0.7 0.1 - 1.2 mg/dL Bilirubin, direct 0.3 0.1 - 0.3 mg/dL [facility] Protein, pl 6.3(L) 6.5 - 8.5 g/dL [facility] Albumin 3.7 3.5 - 5.0 g/dL [facility] Alk phos 253(H) 40 - 130 Units/L [facility] ALT 23 7 - 45 Units/L [facility] AST 25 10 - 45 Units/L [facility] Blood 06/10/2024 10:3 4 AM CDT 06/10/2024 11:28 AM CDT Martha Butterfield MD LAB BLOOD ORDERABLES F inal Result Performing Organization Address City/[facility]/ZIP Co de Phone Number [facility] [place] [employer] [place] [address] * POCT glucose (06/10/2024 9:48 AM CDT) Glucose, POC 157 70 - 199 mg/dL Blood 06/10/2024 9:48 AM CDT 06/10/2024 9:48 AM CDT Martha Butterfield MD LAB POCT ORDERABLES - DEVICE Final Result Performing Organization Address [facility] Co de Phone Number [facility] [place] [employer] [place] [address] * POCT glucose (06/10/2024 6:35 AM CDT) Glucose, POC 137 70 - 199 mg/dL Blood 06/10/2024 6:35 AM CDT 06/10/2024 6:35 AM CDT Martha Butterfield MD LAB POCT ORDERABLES - DEVICE Final Result Performing Organization Address City/[facility] Co de Phone Number [facility] [employer] [place] [address] * (ABNORMAL) Potassium, whole blood (06/10/2024 4:17 AM CDT) Potassium, bld 5.2(H) 3.3 - 4.9 mmol/L Blood 06/10/2024 4:17 AM CDT 06/10/2024 4:24 AM CDT us Lyndsey Ramos MD LAB BLOOD ORDERABLES Aniya l Result Performing Organization Address [facility] Co de Phone Number [facility] [place] [address] * (ABNORMAL) eGFR (06/10/2024 4:14 AM CDT) [...] BLOOD ORDERABLES Final Result Performing Organization Address City/[facility]/ZIP Co de Phone Number [facility] [place] [address] * Tacrolimus level trough (06/10/2024 4:14 AM CDT) Tacrolimus trough 9.6 ng/mL Comment: Interpretive Data Testing performed by liquid chromatography-tandem mass spectrometry. Therapeutic concentrations vary depending on type of transplanted organ and time elapsed since transplant. Typical trough concentrations range from 5-15 ng/mL. This test was developed and its performance characteristics determined by the [facility] consistent with CLIA requirements. This test has not been cleared or approved by the US Food and Drug administration. Current interpretive data last reviewed 2019. Blood 06/10/2024 4:14 AM CDT 06/10/2024 4:32 AM CDT us Patricia Davidson MD PhD LAB BLOOD ORDERABLES Final Result [facility] Department [place] [address] * (ABNORMAL) Renal function panel (06/10/2024 4:14 AM CDT) Sodium 142 135 - 145 mmol/L Potassium, pl 5.6(H) 3.3 - 4.9 mmol/L [facility] Comment:Hemolyzed; Potassium value may be falsely elevated by as much as 0.3-0.5 mmol/L. Suggest redraw and reanalysis. Chloride 112(H) 97 - 110 mmol/L [facility] CO2 24 22 - 32 mmol/L [facility] Anion gap 6 2 - 15 mmol/L [facility] BUN 29(H) 6 - 25 mg/dL [facility] Creatinine 2.11(H) 0.60 - 1.10 mg/dL [facility] Glucose 158 70 - 199 mg/dL [facility] Comment: Interpretive Data Fasting glucose >/= 126 [...] 2022. Calcium 9.1 8.5 - 10.3 mg/dL [facility] Phosphorus, pl 3.7 2.3 - 4.5 mg/dL [facility] Albumin 3.6 3.5 - 5.0 g/dL [facility] Blood 06/10/2024 4:14 AM CDT 06/10/2024 4:32 AM CDT us Patricia Davidson MD PhD LAB BLOOD ORDERABLES Final Result Performing Organization Address City/[facility] Co de Phone Number [facility] [place] [employer] [place] [address] * (ABNORMAL) POCT glucose (06/10/2024 2:27 AM CDT) Glucose, POC 210(H) 70 - 199 mg/dL Blood 06/10/2024 2:27 AM CDT 06/10/2024 2:27 AM CDT us Martha Butterfield MD LAB POCT ORDERABLES - DEVICE Final Result Performing Organization Address [facility] Co de Phone Number [facility] [employer] [place] [address] * (ABNORMAL) POCT glucose (06/10/2024 1:25 AM CDT) Glucose, POC 277(H) 70 - 199 mg/dL Blood 06/10/2024 1:25 AM CDT 06/10/2024 1:25 AM CDT Martha Butterfield MD LAB POCT ORDERABLES - DEVICE Final Result Performing Organization Address [facility] Co de Phone Number [facility] [employer] [place] [address] * POCT glucose (06/10/2024 12:24 AM CDT) Glucose, POC 138 70 - 199 mg/dL Blood 06/10/2024 12:2 4 AM CDT 06/10/2024 12:24 AM CDT Martha Butterfield MD LAB POCT ORDERABLES - DEVICE Final Result Performing Organization Address City/[facility]/ZIP Co de Phone Number [facility] Department [place] [address] * ECG 12 lead (06/10/2024 12:20 AM CDT) Pathologist [facility] Ventricular Rate EKG/Min 65 BPM [facility] Atrial Rate 65 BPM [facility] WI-Interval (MSEC) 160 ms [facility] QRS-Interval (MSEC) 72 ms [facility] QT-Interval (MSEC) 452 ms [facility] QTc 470 ms [facility] P [place] -11 degrees [facility] R [place] -16 degrees [facility] T [place] 54 degrees [facility] Diagnosis Normal sinus rhythm Low voltage [...] Septal leads Confirmed by BRODIE LEIGH M.D ([id number]) on 06/11/2024 10:14:44 AM [facility] 06/10/2024 12:2 0 AM CDT 06/11/2024 10:14 AM CDT us Martha Butterfield MD ECG ORDERABLES Final Result Performing Organization Address City/[facility]/ZIP Co de Phone Number [facility] * (ABNORMAL) Potassium, whole blood (06/09/2024 11:26 PM CDT) Pathologist [facility] Potassium, bld 5.7(H) 3.3 - 4.9 mmol/L Blood 06/09/2024 11:2 6 PM CDT 06/09/2024 11:37 PM CDT Martha Butterfield MD LAB BLOOD ORDERABLES F inal Result Performing Organization Address City/[facility]/ZIP Co de Phone Number [facility] Department [place] [address] * (ABNORMAL) eGFR (06/09/2024 6:33 PM CDT) [...] LAB BLOOD ORDERABLES F inal Result [facility] Department [place] [address] * (ABNORMAL) Renal function panel (06/09/2024 6:33 PM CDT) Sodium 141 135 - 145 mmol/L Potassium, pl 5.5(H) 3.3 - 4.9 mmol/L [facility] Comment:Hemolyzed; Potassium value may be falsely elevated by as much as 0.3-0.5 mmol/L. Suggest redraw and reanalysis. Chloride 112(H) 97 - 110 mmol/L [facility] CO2 17(L) 22 - 32 mmol/L [facility] Anion gap 12 2 - 15 mmol/L [facility] BUN 32(H) 6 - 25 mg/dL [facility] Creatinine 2.08(H) 0.60 - 1.10 mg/dL [facility] Glucose 111 70 - 199 mg/dL [facility] Comment: Interpretive Data Fasting glucose >/= 126 [...] 2022. Calcium 8.7 8.5 - 10.3 mg/dL [facility] Phosphorus, pl 4.0 2.3 - 4.5 mg/dL [facility] Albumin 3.1(L) 3.5 - 5.0 g/dL [facility] Blood 06/09/2024 6:33 PM CDT 06/09/2024 6:48 PM CDT us Martha Butterfield MD LAB BLOOD ORDERABLES F inal Result [facility] Department [place] [address] * (ABNORMAL) eGFR (06/09/2024 5:12 AM CDT) Pathologist [facility] eGFR 30(L) >=60 mL/min/1. 73 m2 [...] MD PhD LAB BLOOD ORDERABLES Final Result [facility] Department [place] [address] * Differential, auto (06/09/2024 5:12 AM CDT) Neutrophil abs 2.5 1.5 - 6.5 K/cumm Imm gran abs 0.0 0.0 - 0.1 K/cumm [facility] Lymphocyte abs 1.0 0.8 - 3.3 K/cumm [facility] Monocyte abs 0.4 0.2 - 0.8 K/cumm [facility] Eosinophil abs 0.2 0.0 - 0.5 K/cumm [facility] Basophil abs 0.0 0.0 - 0.1 K/cumm [facility] Neutrophil pct 61.7 % [facility] Comment: Interpretive Data Percent cell count reference ranges are not reported, since discordance with absolute values may lead to misinterpretation of CBC data. Current Interpretive Data was last revised on 2017. Imm gran pct 0.2 % [facility] Comment: Interpretive Data Percent cell count reference ranges are not reported, since discordance with absolute values may lead to misinterpretation of CBC data. Current Interpretive Data was last revised on 2017. Lymphocyte pct 25.2 % [facility] Comment: Interpretive Data Percent cell count reference ranges are not reported, since discordance with absolute values may lead to misinterpretation of CBC data. Current Interpretive Data was last revised on 2017. Monocyte pct 8.8 % [facility] Comment: Interpretive Data Percent cell count reference ranges are not reported, since discordance with absolute values may lead to misinterpretation of CBC data. Current Interpretive Data was last revised on 2017. Eosinophil pct 3.9 % [facility] Comment: Interpretive Data Percent cell count reference ranges are not reported, since discordance with absolute values may lead to misinterpretation of CBC data. Current Interpretive Data was last revised on 2017. Basophil pct 0.2 % [facility] Comment: Interpretive Data Percent cell count reference ranges are not reported, since discordance with absolute values may lead to misinterpretation of CBC data. Current Interpretive Data was last revised on 2017. Blood 06/09/2024 5:12 AM CDT 06/09/2024 5:43 AM CDT us Martha Butterfield MD LAB BLOOD ORDERABLES F inal Result [facility] Department [place] [address] * Tacrolimus level trough (06/09/2024 5:12 AM CDT) Tacrolimus trough 7.5 ng/mL Comment: Interpretive Data Testing performed by liquid chromatography-tandem mass spectrometry. Therapeutic concentrations vary depending on type of transplanted organ and time elapsed since transplant. Typical trough concentrations range from 5-15 ng/mL. This test was developed and its performance characteristics determined by the [facility] consistent with CLIA requirements. This test has not been cleared or approved by the US Food and Drug administration. Current interpretive data last reviewed 2019. Blood 06/09/2024 5:12 AM CDT 06/09/2024 5:43 AM CDT us Patricia Davidson MD PhD LAB BLOOD ORDERABLES Final Result Performing Organization Address [facility] Co de Phone Number [facility] Department [place] [address] * (ABNORMAL) CBC with auto differential (06/09/2024 5:12 AM CDT) WBC 4.1 3.8 - 9.9 K/cumm Hgb 10.9(L) 11.9 - 15.5 g/dL [facility] Hct 32.1(L) 35.6 - 45.5 % [facility] Plt 104(L) 150 - 400 K/cumm [facility] MPV 11.5 9.1 - 12.3 fL [facility] RBC 3.05(L) 3.90 - 5.20 M/cumm [facility] MCV 105.2(H) 81.3 - 96.4 fL [facility] MCH 35.7(H) 27.1 - 33.3 pg [facility] MCHC 34.0 32.3 - 35.7 g/dL [facility] RDW CV 14.7 11.1 - 14.9 % [facility] RDW SD 55.7(H) 35.7 - 48.1 fL [facility] NRBC abs 0.00 0.00 - 0.01 K/cumm [facility] Blood 06/09/2024 5:12 AM CDT 06/09/2024 5:43 AM CDT us Martha Butterfield MD LAB BLOOD ORDERABLES F inal Result Performing Organization Address City/[facility]/ZIP Co de Phone Number [facility] Department [place] [address] * (ABNORMAL) Renal function panel (06/09/2024 5:12 AM CDT) Sodium 144 135 - 145 mmol/L Potassium, pl 5.1(H) 3.3 - 4.9 mmol/L [facility] Chloride 111(H) 97 - 110 mmol/L [facility] CO2 23 22 - 32 mmol/L [facility] Anion gap 10 2 - 15 mmol/L [facility] BUN 33(H) 6 - 25 mg/dL [facility] Creatinine 2.08(H) 0.60 - 1.10 mg/dL [facility] Glucose 104 70 - 199 mg/dL [facility] Comment: Interpretive Data Fasting glucose >/= 126 [...] 2022. Calcium 8.7 8.5 - 10.3 mg/dL [facility] Phosphorus, pl 4.4 2.3 - 4.5 mg/dL [facility] Albumin 3.5 3.5 - 5.0 g/dL [facility] Blood 06/09/2024 5:12 AM CDT 06/09/2024 5:43 AM CDT us Patricia Davidson MD PhD LAB BLOOD ORDERABLES Final Result [facility] Department [place] [address] * (ABNORMAL) Potassium, whole blood (06/08/2024 8:37 AM CDT) [facility] Potassium, bld 5.0(H) 3.3 - 4.9 mmol/L Blood 06/08/2024 8:37 AM CDT 06/08/2024 9:17 AM CDT us Martha Butterfield MD LAB BLOOD ORDERABLES F inal Result Performing Organization Address [facility] Co de Phone Number [facility] Department [place] [address] * (ABNORMAL) eGFR (06/08/2024 5:40 AM CDT) [...] BLOOD ORDERABLES Final Result Performing Organization Address [facility] Co de Phone Number [facility] Department [place] [address] * Tacrolimus level trough (06/08/2024 5:40 AM CDT) Tacrolimus trough 6.6 ng/mL Comment: Interpretive Data Testing performed by liquid chromatography-tandem mass spectrometry. Therapeutic concentrations vary depending on type of transplanted organ and time elapsed since transplant. Typical trough concentrations range from 5-15 ng/mL. This test was developed and its performance characteristics determined by the [facility] consistent with CLIA requirements. This test has not been cleared or approved by the [place] Food and Drug administration. Current interpretive data last reviewed 2019. Blood 06/08/2024 5:40 AM CDT 06/08/2024 6:19 AM CDT Patricia Davidson MD PhD LAB BLOOD ORDERABLES Final Result [facility] Department [place] [address] * (ABNORMAL) Renal function panel (06/08/2024 5:40 AM CDT) Sodium 144 135 - 145 mmol/L Potassium, pl 5.1(H) 3.3 - 4.9 mmol/L [facility] Chloride 114(H) 97 - 110 mmol/L [facility] CO2 23 22 - 32 mmol/L [facility] Anion gap 7 2 - 15 mmol/L [facility] BUN 31(H) 6 - 25 mg/dL [facility] Creatinine 2.07(H) 0.60 - 1.10 mg/dL [facility] Glucose 100 70 - 199 mg/dL [facility] Comment: Interpretive Data Fasting glucose >/= 126 [...] 2022. Calcium 8.7 8.5 - 10.3 mg/dL [facility] Phosphorus, pl 4.5 2.3 - 4.5 mg/dL [facility] Albumin 3.3(L) 3.5 - 5.0 g/dL [facility] Blood 06/08/2024 5:40 AM CDT 06/08/2024 6:19 AM CDT Patricia Davidson MD PhD LAB BLOOD ORDERABLES Final Result Performing Organization Address [facility] de Phone Number [facility] Department of [place] [address] * (ABNORMAL) eGFR (06/07/2024 5:17 AM CDT) [facility] eGFR 33(L) >=60 mL/min/1. 73 m2 Comment: [...] BLOOD ORDERABLES Final Result Performing Organization Address City/[facility]/ZIP Co de Phone Number [facility] Department [place] [address] * Differential, auto (06/07/2024 5:17 AM CDT) [facility] Neutrophil abs 2.9 1.5 - 6.5 K/cumm Imm gran abs 0.0 0.0 - 0.1 K/cumm [facility] Lymphocyte abs 1.1 0.8 - 3.3 K/cumm [facility] Monocyte abs 0.3 0.2 - 0.8 K/cumm [facility] Eosinophil abs 0.2 0.0 - 0.5 K/cumm [facility] Basophil abs 0.0 0.0 - 0.1 K/cumm [facility] Neutrophil pct 64.2 % [facility] Comment: Interpretive Data Percent cell count reference ranges are not reported, since discordance with absolute values may lead to misinterpretation of CBC data. Current Interpretive Data was last revised on 2017. Imm gran pct 0.2 % [facility] Comment: Interpretive Data Percent cell count reference ranges are not reported, since discordance with absolute values may lead to misinterpretation of CBC data. Current Interpretive Data was last revised on 2017. Lymphocyte pct 24.2 % [facility] Comment: Interpretive Data Percent cell count reference ranges are not reported, since discordance with absolute values may lead to misinterpretation of CBC data. Current Interpretive Data was last revised on 2017. Monocyte pct 7.2 % [facility] Comment: Interpretive Data Percent cell count reference ranges are not reported, since discordance with absolute values may lead to misinterpretation of CBC data. Current Interpretive Data was last revised on 2017. Eosinophil pct 4.0 % [facility] Comment: Interpretive Data Percent cell count reference ranges are not reported, since discordance with absolute values may lead to misinterpretation of CBC data. Current Interpretive Data was last revised on 2017. Basophil pct 0.2 % [facility] Comment: Interpretive Data Percent cell count reference ranges are not reported, since discordance with absolute values may lead to misinterpretation of CBC data. Current Interpretive Data was last revised on 2017. Blood 06/07/2024 5:17 AM CDT 06/07/2024 6:14 AM CDT us Martha Butterfield MD LAB BLOOD ORDERABLES F inal Result [facility] Department [place] [address] * Tacrolimus level trough (06/07/2024 5:17 AM CDT) [facility] Tacrolimus trough 6.2 ng/mL Comment: Interpretive Data Testing performed by liquid chromatography-tandem mass spectrometry. Therapeutic concentrations vary depending on type of transplanted organ and time elapsed since transplant. Typical trough concentrations range from 5-15 ng/mL. This test was developed and its performance characteristics determined by the [facility] consistent with CLIA requirements. This test has not been cleared or approved by the [place] Food and Drug administration. Current interpretive data last reviewed 2019. Blood 06/07/2024 5:17 AM CDT 06/07/2024 6:14 AM CDT us Patricia Davidson MD PhD LAB BLOOD ORDERABLES Final Result [facility] Department [place] [address] * (ABNORMAL) CBC with auto differential (06/07/2024 5:17 AM CDT) [facility] WBC 4.5 3.8 - 9.9 K/cumm Hgb 10.7(L) 11.9 - 15.5 g/dL [facility] Hct 31.3(L) 35.6 - 45.5 % [facility] Plt 100(L) 150 - 400 K/cumm [facility] MPV 11.8 9.1 - 12.3 fL [facility] RBC 2.96(L) 3.90 - 5.20 M/cumm [facility] MCV 105.7(H) 81.3 - 96.4 fL [facility] MCH 36.1(H) 27.1 - 33.3 pg [facility] MCHC 34.2 32.3 - 35.7 g/dL [facility] RDW CV 14.2 11.1 - 14.9 % [facility] RDW SD 53.7(H) 35.7 - 48.1 fL [facility] NRBC abs 0.00 0.00 - 0.01 K/cumm [facility] Blood 06/07/2024 5:17 AM CDT 06/07/2024 6:14 AM CDT us Martha Butterfield MD LAB BLOOD ORDERABLES F inal Result [facility] Department [place] [address] * (ABNORMAL) Renal function panel (06/07/2024 5:17 AM CDT) [facility] Sodium 137 135 - 145 mmol/L Potassium, pl 4.9 3.3 - 4.9 mmol/L [facility] Chloride 108 97 - 110 mmol/L [facility] CO2 21(L) 22 - 32 mmol/L [facility] Anion gap 8 2 - 15 mmol/L [facility] BUN 28(H) 6 - 25 mg/dL [facility] Creatinine 1.92(H) 0.60 - 1.10 mg/dL [facility] Glucose 125 70 - 199 mg/dL [facility] Comment: Interpretive Data Fasting glucose >/= 126 [...] 2022. Calcium 8.1(L) 8.5 - 10.3 mg/dL [facility] Phosphorus, pl 3.8 2.3 - 4.5 mg/dL [facility] Albumin 3.4(L) 3.5 - 5.0 g/dL [facility] Blood 06/07/2024 5:1 7 AM CDT 06/07/2024 6:13 AM CDT us Patricia Davidson MD PhD LAB BLOOD ORDERABLES Final Result [facility] Department [place] [address] * Potassium, whole blood (06/06/2024 11:29 AM CDT) Potassium, bld 4.9 3.3 - 4.9 mmol/L Blood 06/06/2024 11:2 9 AM CDT 06/06/2024 12:20 PM CDT us Martha Butterfield MD LAB BLOOD ORDERABLES F inal Result Performing Organization Address [facility] Co de Phone Number [facility] Department [place] [address] * (ABNORMAL) eGFR (06/06/2024 4:28 AM CDT) [...] MD PhD LAB BLOOD ORDERABLES Final Result [facility] Department [place] [address] * Tacrolimus level trough (06/06/2024 4:28 AM CDT) Pathologist [facility] Tacrolimus trough 5.9 ng/mL Comment: Interpretive Data Testing performed by liquid chromatography-tandem mass spectrometry. Therapeutic concentrations vary depending on type of transplanted organ and time elapsed since transplant. Typical trough concentrations range from 5-15 ng/mL. This test was developed and its performance characteristics determined by the [facility] consistent with CLIA requirements. This test has not been cleared or approved by the [place] Food and Drug administration. Current interpretive data last reviewed 2019. Blood 06/06/2024 4:28 AM CDT 06/06/2024 5:44 AM CDT Patricia Davidson MD PhD LAB BLOOD ORDERABLES Final Result Performing Organization Address [facility] de Phone Number [facility] Department [place] [address] * (ABNORMAL) Renal function panel (06/06/2024 4:28 AM CDT) Pathologist [facility] Sodium 143 135 - 145 mmol/L Potassium, pl 5.3(H) 3.3 - 4.9 mmol/L [facility] Chloride 113(H) 97 - 110 mmol/L [facility] CO2 23 22 - 32 mmol/L [facility] Anion gap 7 2 - 15 mmol/L [facility] BUN 30(H) 6 - 25 mg/dL [facility] Creatinine 1.99(H) 0.60 - 1.10 mg/dL [facility] Glucose 86 70 - 199 mg/dL [facility] Comment: Interpretive Data Fasting glucose >/= 126 [...] 2022. Calcium 8.5 8.5 - 10.3 mg/dL [facility] Phosphorus, pl 4.1 2.3 - 4.5 mg/dL [facility] Albumin 3.1(L) 3.5 - 5.0 g/dL [facility] Blood 06/06/2024 4:28 AM CDT 06/06/2024 5:36 AM CDT Patricia Davidson MD PhD LAB BLOOD ORDERABLES Final Result [facility] Department [place] [address] * (ABNORMAL) eGFR (06/05/2024 5:49 AM CDT) [...] MD PhD LAB BLOOD ORDERABLES Final Result [facility] [place] [address] * Differential, auto (06/05/2024 5:49 AM CDT) Neutrophil abs 2.5 1.5 - 6.5 K/cumm Imm gran abs 0.0 0.0 - 0.1 K/cumm [facility] Lymphocyte abs 1.0 0.8 - 3.3 K/cumm [facility] Monocyte abs 0.4 0.2 - 0.8 K/cumm [facility] Eosinophil abs 0.1 0.0 - 0.5 K/cumm [facility] Basophil abs 0.0 0.0 - 0.1 K/cumm [facility] Neutrophil pct 62.5 % [facility] Comment: Interpretive Data Percent cell count reference ranges are not reported, since discordance with absolute values may lead to misinterpretation of CBC data. Current Interpretive Data was last revised on 2017. Imm gran pct 0.3 % [facility] Comment: Interpretive Data Percent cell count reference ranges are not reported, since discordance with absolute values may lead to misinterpretation of CBC data. Current Interpretive Data was last revised on 2017. Lymphocyte pct 24.3 % [facility] Comment: Interpretive Data Percent cell count reference ranges are not reported, since discordance with absolute values may lead to misinterpretation of CBC data. Current Interpretive Data was last revised on 2017. Monocyte pct 9.3 % [facility] Comment: Interpretive Data Percent cell count reference ranges are not reported, since discordance with absolute values may lead to misinterpretation of CBC data. Current Interpretive Data was last revised on 2017. Eosinophil pct 3.3 % [facility] Comment: Interpretive Data Percent cell count reference ranges are not reported, since discordance with absolute values may lead to misinterpretation of CBC data. Current Interpretive Data was last revised on 2017. Basophil pct 0.3 % [facility] Comment: Interpretive Data Percent cell count reference ranges are not reported, since discordance with absolute values may lead to misinterpretation of CBC data. Current Interpretive Data was last revised on 2017. Blood 06/05/2024 5:49 AM CDT 06/05/2024 6:48 AM CDT Patricia Davidson MD PhD LAB BLOOD ORDERABLES Final Result Performing Organization Address [facility] de Phone Number [facility] [place] [address] * Tacrolimus level trough (06/05/2024 5:49 AM CDT) Pathologist [facility] Tacrolimus trough 5.9 ng/mL Comment: Interpretive Data Testing performed by liquid chromatography-tandem mass spectrometry. Therapeutic concentrations vary depending on type of transplanted organ and time elapsed since transplant. Typical trough concentrations range from 5-15 ng/mL. This test was developed and its performance characteristics determined by the [facility] consistent with CLIA requirements. This test has not been cleared or approved by the US Food and Drug administration. Current interpretive data last reviewed 2019. Blood 06/05/2024 5:49 AM CDT 06/05/2024 6:48 AM CDT Patricia Davidson MD PhD LAB BLOOD ORDERABLES Final Result Performing Organization Address [facility] [place] [address] * (ABNORMAL) CBC with auto differential (06/05/2024 5:49 AM CDT) Pathologist [facility] WBC 4.0 3.8 - 9.9 K/cumm Hgb 10.9(L) 11.9 - 15.5 g/dL [facility] Hct 31.7(L) 35.6 - 45.5 % [facility] Plt 102(L) 150 - 400 K/cumm [facility] MPV 11.6 9.1 - 12.3 fL [facility] RBC 3.05(L) 3.90 - 5.20 M/cumm [facility] MCV 103.9(H) 81.3 - 96.4 fL [facility] MCH 35.7(H) 27.1 - 33.3 pg [facility] MCHC 34.4 32.3 - 35.7 g/dL [facility] RDW CV 14.0 11.1 - 14.9 % [facility] RDW SD 52.3(H) 35.7 - 48.1 fL [facility] NRBC abs 0.00 0.00 - 0.01 K/cumm [facility] Blood 06/05/2024 5:49 AM CDT 06/05/2024 6:48 AM CDT us Patricia Davidson MD PhD LAB BLOOD ORDERABLES Final Result [facility] Department [place] [address] * (ABNORMAL) Renal function panel (06/05/2024 5:49 AM CDT) Sodium 140 135 - 145 mmol/L Potassium, pl 4.6 3.3 - 4.9 mmol/L [facility] Chloride 109 97 - 110 mmol/L [facility] CO2 22 22 - 32 mmol/L [facility] Anion gap 9 2 - 15 mmol/L [facility] BUN 29(H) 6 - 25 mg/dL [facility] Creatinine 1.99(H) 0.60 - 1.10 mg/dL [facility] Glucose 98 70 - 199 mg/dL [facility] Comment: Interpretive Data Fasting glucose >/= 126 [...] 2022. Calcium 8.6 8.5 - 10.3 mg/dL [facility] Phosphorus, pl 4.3 2.3 - 4.5 mg/dL [facility] Albumin 3.5 3.5 - 5.0 g/dL [facility] Blood 06/05/2024 5:49 AM CDT 06/05/2024 6:48 AM CDT us Patricia Davidson MD PhD LAB BLOOD ORDERABLES Final Result [facility] [place] [address] * ECG 12 lead (06/04/2024 5:41 AM CDT) Ventricular Rate EKG/Min 67 BPM [facility] Atrial Rate 67 BPM [facility] WI-Interval (MSEC) 202 ms [facility] QRS-Interval (MSEC) 74 ms [facility] QT-Interval (MSEC) 426 ms [facility] QTc 450 ms [facility] P [place] 5 degrees [facility] R [place] -19 degrees [facility] T [place] 53 degrees [facility] Diagnosis Normal sinus rhythm 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) Abnormal ECG When compared with ECG of 30-MAY-2024 01:10, QT has shortened Confirmed by LYNDSEY TUCKER M.D ([id number]) on 06/05/2024 5:57:41 AM [facility] 06/04/2024 5:41 AM CDT 06/05/2024 5:57 AM CDT Pineda Barrios MD ECG ORDERABLES Final Result Performing Organization Address City/[facility]/ZIP Co de Phone Number [facility] * (ABNORMAL) eGFR (06/04/2024 5:10 AM [...] MD PhD LAB BLOOD ORDERABLES Final Result [facility] [place] [address] * Differential, auto (06/04/2024 5:10 AM CDT) Pathologist [facility] Neutrophil abs 3.1 1.5 - 6.5 K/cumm Imm gran abs 0.0 0.0 - 0.1 K/cumm [facility] Lymphocyte abs 1.3 0.8 - 3.3 K/cumm [facility] Monocyte abs 0.5 0.2 - 0.8 K/cumm [facility] Eosinophil abs 0.2 0.0 - 0.5 K/cumm [facility] Basophil abs 0.0 0.0 - 0.1 K/cumm [facility] Neutrophil pct 61.7 % [facility] Comment: Interpretive Data Percent cell count reference ranges are not reported, since discordance with absolute values may lead to misinterpretation of CBC data. Current Interpretive Data was last revised on 2017. Imm gran pct 0.4 % [facility] Comment: Interpretive Data Percent cell count reference ranges are not reported, since discordance with absolute values may lead to misinterpretation of CBC data. Current Interpretive Data was last revised on 2017. Lymphocyte pct 25.2 % [facility] Comment: Interpretive Data Percent cell count reference ranges are not reported, since discordance with absolute values may lead to misinterpretation of CBC data. Current Interpretive Data was last revised on 2017. Monocyte pct 9.1 % [facility] Comment: Interpretive Data Percent cell count reference ranges are not reported, since discordance with absolute values may lead to misinterpretation of CBC data. Current Interpretive Data was last revised on 2017. Eosinophil pct 3.0 % [facility] Comment: Interpretive Data Percent cell count reference ranges are not reported, since discordance with absolute values may lead to misinterpretation of CBC data. Current Interpretive Data was last revised on 2017. Basophil pct 0.6 % [facility] Comment: Interpretive Data Percent cell count reference ranges are not reported, since discordance with absolute values may lead to misinterpretation of CBC data. Current Interpretive Data was last revised on 2017. Blood 06/04/2024 5:10 AM CDT 06/04/2024 6:22 AM CDT Patricia Davidson MD PhD LAB BLOOD ORDERABLES Final Result [facility] Department [place] [address] * Tacrolimus level trough (06/04/2024 5:10 AM CDT) Tacrolimus trough 6.1 ng/mL Comment: Interpretive Data Testing performed by liquid chromatography-tandem mass spectrometry. Therapeutic concentrations vary depending on type of transplanted organ and time elapsed since transplant. Typical trough concentrations range from 5-15 ng/mL. This test was developed and its performance characteristics determined by the [facility] consistent with CLIA requirements. This test has not been cleared or approved by the [place] Food and Drug administration. Current interpretive data last reviewed 2019. Blood 06/04/2024 5:10 AM CDT 06/04/2024 6:22 AM CDT us Particia Davidson MD PhD LAB BLOOD ORDERABLES Final Result [facility] Department [place] [employer] [place] [place] [address] * (ABNORMAL) CBC with auto differential (06/04/2024 5:10 AM CDT) Pathologist [facility] WBC 5.0 3.8 - 9.9 K/cumm Hgb 11.2(L) 11.9 - 15.5 g/dL [facility] Hct 32.3(L) 35.6 - 45.5 % [facility] Plt 102(L) 150 - 400 K/cumm [facility] MPV 11.6 9.1 - 12.3 fL [facility] RBC 3.13(L) 3.90 - 5.20 M/cumm [facility] MCV 103.2(H) 81.3 - 96.4 fL [facility] MCH 35.8(H) 27.1 - 33.3 pg [facility] MCHC 34.7 32.3 - 35.7 g/dL [facility] RDW CV 13.7 11.1 - 14.9 % [facility] RDW SD 51.2(H) 35.7 - 48.1 fL [facility] NRBC abs 0.00 0.00 - 0.01 K/cumm [facility] Blood 06/04/2024 5:10 AM CDT 06/04/2024 6:22 AM CDT us Patricia Davidson MD PhD LAB BLOOD ORDERABLES Final Result [facility] [place] [employer] [place] [address] * (ABNORMAL) Renal function panel (06/04/2024 5:10 AM CDT) Sodium 144 135 - 145 mmol/L Potassium, pl 4.8 3.3 - 4.9 mmol/L [facility] Chloride 112(H) 97 - 110 mmol/L [facility] CO2 23 22 - 32 mmol/L [facility] Anion gap 9 2 - 15 mmol/L [facility] BUN 25 6 - 25 mg/dL [facility] Creatinine 1.98(H) 0.60 - 1.10 mg/dL [facility] Glucose 81 70 - 199 mg/dL [facility] Comment: Interpretive Data Fasting glucose >/= 126 [...] 2022. Calcium 8.9 8.5 - 10.3 mg/dL [facility] Phosphorus, pl 4.3 2.3 - 4.5 mg/dL [facility] Albumin 3.4(L) 3.5 - 5.0 g/dL [facility] Blood 06/04/2024 5:10 AM CDT 06/04/2024 6:23 AM CDT us Patricia Davidson MD PhD LAB BLOOD ORDERABLES Final Result [facility] [place] [address] * Folate (06/04/2024 12:39 AM CDT) Folic acid See Comment >=5.0 ng/mL Comment: Credited; Hemolyzed Specimen Telephone report made to: Luz Maria Iyer RN on 06/04/2024 08:49:44 CDT by SAUD . Blood 06/04/2024 12:3 9 AM CDT 06/04/2024 1:24 AM CDT us Shea Babcock MD LAB BLOOD ORDERABLE S Final Result Performing Organization Address City/[facility]/ZIP Co de Phone Number [facility] Department [place] [address] * Protein / creatinine ratio, urine, random (06/03/2024 6:15 PM CDT) Protein, ur, quant <5.0 mg/dL Comment: Interpretive Data No reference range established. Current interpretive data was last revised 2018. Creatinine Ur 39.1 mg/dL [facility] Comment: Interpretive Data No reference range established. Current interpretive data was last revised 2018. Protein/creatinin e ratio <127.9 0.0 - 180.0 mg/g CR [facility] Urine 06/03/2024 6:15 PM CDT 06/03/2024 7:42 PM CDT Pineda Barrios MD LAB URINE ORDE RABLES Final Result Performing Organization Address [facility] Co de Phone Number [facility] Department [place] [address] * (ABNORMAL) eGFR (06/03/2024 8:54 AM CDT) [...] MD PhD LAB BLOOD ORDERABLES Final Result [facility] [place] [address] * Differential, auto (06/03/2024 8:54 AM CDT) Neutrophil abs 2.8 1.5 - 6.5 K/cumm Imm gran abs 0.0 0.0 - 0.1 K/cumm [facility] Lymphocyte abs 1.3 0.8 - 3.3 K/cumm [facility] Monocyte abs 0.4 0.2 - 0.8 K/cumm [facility] Eosinophil abs 0.2 0.0 - 0.5 K/cumm [facility] Basophil abs 0.0 0.0 - 0.1 K/cumm [facility] Neutrophil pct 59.1 % [facility] Comment: Interpretive Data Percent cell count reference ranges are not reported, since discordance with absolute values may lead to misinterpretation of CBC data. Current Interpretive Data was last revised on 2017. Imm gran pct 0.4 % [facility] Comment: Interpretive Data Percent cell count reference ranges are not reported, since discordance with absolute values may lead to misinterpretation of CBC data. Current Interpretive Data was last revised on 2017. Lymphocyte pct 27.4 % [facility] Comment: Interpretive Data Percent cell count reference ranges are not reported, since discordance with absolute values may lead to misinterpretation of CBC data. Current Interpretive Data was last revised on 2017. Monocyte pct 9.1 % [facility] Comment: Interpretive Data Percent cell count reference ranges are not reported, since discordance with absolute values may lead to misinterpretation of CBC data. Current Interpretive Data was last revised on 2017. Eosinophil pct 3.8 % [facility] Comment: Interpretive Data Percent cell count reference ranges are not reported, since discordance with absolute values may lead to misinterpretation of CBC data. Current Interpretive Data was last revised on 2017. Basophil pct 0.2 % [facility] Comment: Interpretive Data Percent cell count reference ranges are not reported, since discordance with absolute values may lead to misinterpretation of CBC data. Current Interpretive Data was last revised on 2017. Blood 06/03/2024 8:54 AM CDT 06/03/2024 9:23 AM CDT Result [facility] Patricia Davidson MD PhD LAB BLOOD ORDERABLES Final Result Performing Organization Address [facility] de Phone Number [facility] Department [place] [address] * Tacrolimus level trough (06/03/2024 8:54 AM CDT) Pathologist [facility] Tacrolimus trough 4.9 ng/mL Comment: Interpretive Data Testing performed by liquid chromatography-tandem mass spectrometry. Therapeutic concentrations vary depending on type of transplanted organ and time elapsed since transplant. Typical trough concentrations range from 5-15 ng/mL. This test was developed and its performance characteristics determined by the [facility] consistent with CLIA requirements. This test has not been cleared or approved by the [place] Food and Drug administration. Current interpretive data last reviewed 2019. Blood 06/03/2024 8:54 AM CDT 06/03/2024 9:22 AM CDT Patricia Davidson MD PhD LAB BLOOD ORDERABLES Final Result Performing Organization Address [facility] de Phone Number [facility] Department [place] [address] * (ABNORMAL) CBC with auto differential (06/03/2024 8:54 AM CDT) [facility] [place] WBC 4.7 3.8 - 9.9 K/cumm Hgb 11.6(L) 11.9 - 15.5 g/dL [facility] Hct 32.6(L) 35.6 - 45.5 % [facility] Plt 121(L) 150 - 400 K/cumm [facility] MPV 11.0 9.1 - 12.3 fL [facility] RBC 3.19(L) 3.90 - 5.20 M/cumm [facility] MCV 102.2(H) 81.3 - 96.4 fL [facility] MCH 36.4(H) 27.1 - 33.3 pg [facility] MCHC 35.6 32.3 - 35.7 g/dL [facility] RDW CV 13.5 11.1 - 14.9 % [facility] RDW SD 49.6(H) 35.7 - 48.1 fL [facility] NRBC abs 0.00 0.00 - 0.01 K/cumm [facility] Blood 06/03/2024 8:54 AM CDT 06/03/2024 9:23 AM CDT us Patricia Davidson MD PhD LAB BLOOD ORDERABLES Final Result [facility] Department [place] [address] * CRP (acute phase) (06/03/2024 8:54 AM CDT) CRP 6.5 <=10.0 mg/L Blood 06/03/2024 8:54 AM CDT 06/03/2024 9:25 AM CDT us Pineda Barrios MD LAB BLOOD ORDE RABLES Final Result [facility] Department [place] [address] * (ABNORMAL) Renal function panel (06/03/2024 8:54 AM CDT) Sodium 143 135 - 145 mmol/L Potassium, pl 4.6 3.3 - 4.9 mmol/L [facility] Chloride 110 97 - 110 mmol/L [facility] CO2 23 22 - 32 mmol/L [facility] Anion gap 10 2 - 15 mmol/L [facility] BUN 21 6 - 25 mg/dL [facility] Creatinine 1.93(H) 0.60 - 1.10 mg/dL [facility] Glucose 125 70 - 199 mg/dL [facility] Comment: Interpretive Data Fasting glucose >/= 126 [...] 2022. Calcium 9.1 8.5 - 10.3 mg/dL [facility] Phosphorus, pl 3.5 2.3 - 4.5 mg/dL [facility] Albumin 3.5 3.5 - 5.0 g/dL [facility] Blood 06/03/2024 8:54 AM CDT 06/03/2024 9:25 AM CDT Patricia Davidson MD PhD LAB BLOOD ORDERABLES Final Result [facility] [place] [address] * (ABNORMAL) eGFR (06/03/2024 2:22 AM CDT) [facility] eGFR 34(L) >=60 mL/min/1. 73 m2 Comment: [...] MD LAB BLOOD ORDE COURTNEY Final Result [facility] [place] [address] * Differential, auto (06/03/2024 2:22 AM CDT) Neutrophil abs 2.5 1.5 - 6.5 K/cumm Imm gran abs 0.0 0.0 - 0.1 K/cumm [facility] Lymphocyte abs 1.2 0.8 - 3.3 K/cumm [facility] Monocyte abs 0.4 0.2 - 0.8 K/cumm [facility] Eosinophil abs 0.1 0.0 - 0.5 K/cumm [facility] Basophil abs 0.0 0.0 - 0.1 K/cumm [facility] Neutrophil pct 58.3 % [facility] Comment: Interpretive Data Percent cell count reference ranges are not reported, since discordance with absolute values may lead to misinterpretation of CBC data. Current Interpretive Data was last revised on 2017. Imm gran pct 0.5 % [facility] Comment: Interpretive Data Percent cell count reference ranges are not reported, since discordance with absolute values may lead to misinterpretation of CBC data. Current Interpretive Data was last revised on 2017. Lymphocyte pct 28.7 % [facility] Comment: Interpretive Data Percent cell count reference ranges are not reported, since discordance with absolute values may lead to misinterpretation of CBC data. Current Interpretive Data was last revised on 2017. Monocyte pct 9.2 % [facility] Comment: Interpretive Data Percent cell count reference ranges are not reported, since discordance with absolute values may lead to misinterpretation of CBC data. Current Interpretive Data was last revised on 2017. Eosinophil pct 3.1 % [facility] Comment: Interpretive Data Percent cell count reference ranges are not reported, since discordance with absolute values may lead to misinterpretation of CBC data. Current Interpretive Data was last revised on 2017. Basophil pct 0.2 % [facility] Comment: Interpretive Data Percent cell count reference ranges are not reported, since discordance with absolute values may lead to misinterpretation of CBC data. Current Interpretive Data was last revised on 2017. Blood 06/03/2024 2:22 AM CDT 06/03/2024 2:57 AM CDT us Pineda Barrios MD LAB BLOOD RICO VALDEZ Final Result [facility] Department [place] [employer] [place] [place] [address] * (ABNORMAL) Iron profile w/ IBC (06/03/2024 2:22 AM CDT) Iron 104 35 - 145 mcg/dL TIBC 192(L) 250 - 400 mcg/dL [facility] Transferrin saturation 54(H) 20 - 50 % [facility] Blood 06/03/2024 2:22 AM CDT 06/03/2024 2:57 AM CDT us Shea Babcock MD LAB BLOOD ORDERABLE S Final Result [facility] Department [place] [address] * (ABNORMAL) CBC with auto differential (06/03/2024 2:22 AM CDT) WBC 4.2 3.8 - 9.9 K/cumm Hgb 11.5(L) 11.9 - 15.5 g/dL [facility] Hct 32.9(L) 35.6 - 45.5 % [facility] Plt 120(L) 150 - 400 K/cumm [facility] MPV 11.2 9.1 - 12.3 fL [facility] RBC 3.24(L) 3.90 - 5.20 M/cumm [facility] MCV 101.5(H) 81.3 - 96.4 fL [facility] MCH 35.5(H) 27.1 - 33.3 pg [facility] MCHC 35.0 32.3 - 35.7 g/dL [facility] RDW CV 13.4 11.1 - 14.9 % [facility] RDW SD 49.9(H) 35.7 - 48.1 fL [facility] NRBC abs 0.00 0.00 - 0.01 K/cumm [facility] Blood 06/03/2024 2:22 AM CDT 06/03/2024 2:57 AM CDT Pineda Barrios MD LAB BLOOD ORDXavier VALDEZ Final Result [facility] Department [place] [address] * Tacrolimus level random (06/03/2024 2:22 AM CDT) Pathologist [facility] Tacrolimus random 6.3 ng/mL Comment: Interpretive Data Testing performed by liquid chromatography-tandem mass spectrometry. Therapeutic concentrations vary depending on type of transplanted organ and time elapsed since transplant. Typical trough concentrations range from 5-15 ng/mL. This test was developed and its performance characteristics determined by the [facility] consistent with CLIA requirements. This test has not been cleared or approved by the US Food and Drug administration. Current interpretive data last reviewed 2019. Blood 06/03/2024 2:22 AM CDT 06/03/2024 2:57 AM CDT Pineda Barrios MD LAB BLOOD RICO VALDEZ Final Result Performing Organization Address [place]/[facility] Co de Phone Number [facility] [place] [employer] [place] [address] * TSH (06/03/2024 2:22 AM CDT) Thyroid Stimulating Hormone 1.91 0.30 - 4.20 mcIUnit/mL Blood 06/03/2024 2:22 AM CDT 06/03/2024 2:57 AM CDT Shea Babcock MD LAB BLOOD ORDERABLE S Final Result Performing Organization Address [facility] Co de Phone Number [facility] [place] [employer] [place] [address] * (ABNORMAL) Ferritin (06/03/2024 2:22 AM CDT) Ferritin 213(H) 13 - 150 ng/mL Blood 06/03/2024 2:22 AM CDT 06/03/2024 2:57 AM CDT Shea Babcock MD LAB BLOOD ORDERABLE S Final Result Performing Organization Address [place]/[facility] Co de Phone Number [facility] [place] [employer] [place] [address] * Vitamin B12 (06/03/2024 2:22 AM CDT) Vitamin B12 749 230 - 1,250 pg/mL Blood 06/03/2024 2:22 AM CDT 06/03/2024 2:57 AM CDT us Shea Babcock MD LAB BLOOD ORDERABLE S Final Result [facility] Department [place] [address] * (ABNORMAL) Renal function panel (06/03/2024 2:22 AM CDT) Sodium 144 135 - 145 mmol/L Potassium, pl 5.0(H) 3.3 - 4.9 mmol/L [facility] Chloride 111(H) 97 - 110 mmol/L [facility] CO2 25 22 - 32 mmol/L [facility] Anion gap 8 2 - 15 mmol/L [facility] BUN 23 6 - 25 mg/dL [facility] Creatinine 1.86(H) 0.60 - 1.10 mg/dL [facility] Glucose 102 70 - 199 mg/dL [facility] Comment: Interpretive Data Fasting glucose >/= 126 [...] 2022. Calcium 9.2 8.5 - 10.3 mg/dL [facility] Phosphorus, pl 3.1 2.3 - 4.5 mg/dL [facility] Albumin 3.8 3.5 - 5.0 g/dL [facility] Blood 06/03/2024 2:22 AM CDT 06/03/2024 2:57 AM CDT us Pineda Barrios MD LAB BLOOD ORDE COURTNEY Final Result [facility] Department [place] [address] * (ABNORMAL) eGFR (06/02/2024 8:43 AM CDT) Pathologist [facility] eGFR 33(L) >=60 mL/min/1. 73 m2 [...] MD PhD LAB BLOOD ORDERABLES Final Result [facility] Department [place] [address] * Differential, auto (06/02/2024 8:43 AM CDT) Pathologist [facility] Neutrophil abs 2.3 1.5 - 6.5 K/cumm Imm gran abs 0.0 0.0 - 0.1 K/cumm [facility] Lymphocyte abs 1.3 0.8 - 3.3 K/cumm [facility] Monocyte abs 0.4 0.2 - 0.8 K/cumm [facility] Eosinophil abs 0.1 0.0 - 0.5 K/cumm [facility] Basophil abs 0.0 0.0 - 0.1 K/cumm [facility] Neutrophil pct 55.6 % [facility] Comment: Interpretive Data Percent cell count reference ranges are not reported, since discordance with absolute values may lead to misinterpretation of CBC data. Current Interpretive Data was last revised on 2017. Imm gran pct 0.2 % [facility] Comment: Interpretive Data Percent cell count reference ranges are not reported, since discordance with absolute values may lead to misinterpretation of CBC data. Current Interpretive Data was last revised on 2017. Lymphocyte pct 30.7 % [facility] Comment: Interpretive Data Percent cell count reference ranges are not reported, since discordance with absolute values may lead to misinterpretation of CBC data. Current Interpretive Data was last revised on 2017. Monocyte pct 10.1 % [facility] Comment: Interpretive Data Percent cell count reference ranges are not reported, since discordance with absolute values may lead to misinterpretation of CBC data. Current Interpretive Data was last revised on 2017. Eosinophil pct 3.2 % [facility] Comment: Interpretive Data Percent cell count reference ranges are not reported, since discordance with absolute values may lead to misinterpretation of CBC data. Current Interpretive Data was last revised on 2017. Basophil pct 0.2 % [facility] Comment: Interpretive Data Percent cell count reference ranges are not reported, since discordance with absolute values may lead to misinterpretation of CBC data. Current Interpretive Data was last revised on 2017. Blood 06/02/2024 8:43 AM CDT 06/02/2024 9:14 AM CDT us Patricia Davidson MD PhD LAB BLOOD ORDERABLES Final Result [facility] Department of Laboratories [place], [place] [id number] * Tacrolimus level trough (06/02/2024 8:43 AM CDT) [facility] Tacrolimus trough 3.8 ng/mL Comment: Interpretive Data Testing performed by liquid chromatography-tandem mass spectrometry. Therapeutic concentrations vary depending on type of transplanted organ and time elapsed since transplant. Typical trough concentrations range from 5-15 ng/mL. This test was developed and its performance characteristics determined by the [facility] consistent with CLIA requirements. This test has not been cleared or approved by the US Food and Drug administration. Current interpretive data last reviewed 2019. Blood 06/02/2024 8:43 AM CDT 06/02/2024 9:14 AM CDT Patricia Davidson MD PhD LAB BLOOD ORDERABLES Final Result [facility] Department [place] [address] * (ABNORMAL) CBC with auto differential (06/02/2024 8:43 AM CDT) WBC 4.1 3.8 - 9.9 K/cumm Hgb 10.8(L) 11.9 - 15.5 g/dL [facility] Hct 30.5(L) 35.6 - 45.5 % [facility] Plt 105(L) 150 - 400 K/cumm [facility] MPV 11.6 9.1 - 12.3 fL [facility] RBC 3.03(L) 3.90 - 5.20 M/cumm [facility] MCV 100.7(H) 81.3 - 96.4 fL [facility] MCH 35.6(H) 27.1 - 33.3 pg [facility] MCHC 35.4 32.3 - 35.7 g/dL [facility] RDW CV 13.3 11.1 - 14.9 % [facility] RDW SD 48.2(H) 35.7 - 48.1 fL [facility] NRBC abs 0.00 0.00 - 0.01 K/cumm [facility] Blood 06/02/2024 8:43 AM CDT 06/02/2024 9:14 AM CDT Patricia Davidson MD PhD LAB BLOOD ORDERABLES Final Result [facility] Department [place] [address] * (ABNORMAL) Renal function panel (06/02/2024 8:43 AM CDT) Sodium 143 135 - 145 mmol/L Potassium, pl 5.1(H) 3.3 - 4.9 mmol/L [facility] Comment:Hemolyzed; Potassium value may be falsely elevated by as much as 0.3-0.5 mmol/L. Suggest redraw and reanalysis. Chloride 111(H) 97 - 110 mmol/L [facility] CO2 26 22 - 32 mmol/L [facility] Anion gap 6 2 - 15 mmol/L [facility] BUN 22 6 - 25 mg/dL [facility] Creatinine 1.93(H) 0.60 - 1.10 mg/dL [facility] Glucose 108 70 - 199 mg/dL [facility] Comment: Interpretive Data Fasting glucose >/= 126 [...] 2022. Calcium 8.8 8.5 - 10.3 mg/dL [facility] Phosphorus, pl 3.5 2.3 - 4.5 mg/dL [facility] Albumin 3.4(L) 3.5 - 5.0 g/dL [facility] Blood 06/02/2024 8:43 AM CDT 06/02/2024 9:14 AM CDT us Patricia Davidson MD PhD LAB BLOOD ORDERABLES Final Result [facility] Department [place] [address] * Immunoglobulin profile (06/01/2024 9:10 PM CDT) Immunoglobulin G 882 700 - 1,600 mg/dL Immunoglobulin A 213 70 - 400 mg/dL [facility] Immunoglobulin M 92 40 - 230 mg/dL [facility] Blood 06/01/2024 9:10 PM CDT 06/01/2024 10:48 PM CDT Pineda Barrios MD LAB BLOOD ORDE COURTNEY Final Result [facility] [place] [address] * Differential, auto (06/01/2024 10:03 AM CDT) Pathologist [facility] Neutrophil abs 3.5 1.5 - 6.5 K/cumm Imm gran abs 0.0 0.0 - 0.1 K/cumm [facility] Lymphocyte abs 1.3 0.8 - 3.3 K/cumm [facility] Monocyte abs 0.4 0.2 - 0.8 K/cumm [facility] Eosinophil abs 0.2 0.0 - 0.5 K/cumm [facility] Basophil abs 0.0 0.0 - 0.1 K/cumm [facility] Neutrophil pct 65.5 % [facility] Comment: Interpretive Data Percent cell count reference ranges are not reported, since discordance with absolute values may lead to misinterpretation of CBC data. Current Interpretive Data was last revised on 2017. Imm gran pct 0.2 % [facility] Comment: Interpretive Data Percent cell count reference ranges are not reported, since discordance with absolute values may lead to misinterpretation of CBC data. Current Interpretive Data was last revised on 2017. Lymphocyte pct 23.6 % [facility] Comment: Interpretive Data Percent cell count reference ranges are not reported, since discordance with absolute values may lead to misinterpretation of CBC data. Current Interpretive Data was last revised on 2017. Monocyte pct 7.7 % [facility] Comment: Interpretive Data Percent cell count reference ranges are not reported, since discordance with absolute values may lead to misinterpretation of CBC data. Current Interpretive Data was last revised on 2017. Eosinophil pct 2.8 % [facility] Comment: Interpretive Data Percent cell count reference ranges are not reported, since discordance with absolute values may lead to misinterpretation of CBC data. Current Interpretive Data was last revised on 2017. Basophil pct 0.2 % [facility] Comment: Interpretive Data Percent cell count reference ranges are not reported, since discordance with absolute values may lead to misinterpretation of CBC data. Current Interpretive Data was last revised on 2017. Blood 06/01/2024 10:0 3 AM CDT 06/01/2024 10:19 AM CDT us Patricia Davidson MD PhD LAB BLOOD ORDERABLES Final Result [facility] Department [place] [address] * (ABNORMAL) CBC with auto differential (06/01/2024 10:03 AM CDT) WBC 5.3 3.8 - 9.9 K/cumm Hgb 12.1 11.9 - 15.5 g/dL [facility] Hct 34.0(L) 35.6 - 45.5 % [facility] Plt 98(L) 150 - 400 K/cumm [facility] MPV 11.6 9.1 - 12.3 fL [facility] RBC 3.44(L) 3.90 - 5.20 M/cumm [facility] MCV 98.8(H) 81.3 - 96.4 fL [facility] MCH 35.2(H) 27.1 - 33.3 pg [facility] MCHC 35.6 32.3 - 35.7 g/dL [facility] RDW CV 12.8 11.1 - 14.9 % [facility] RDW SD 45.8 35.7 - 48.1 fL [facility] NRBC abs 0.00 0.00 - 0.01 K/cumm [facility] Blood 06/01/2024 10:0 3 AM CDT 06/01/2024 10:19 AM CDT Patricia Davidson MD PhD LAB BLOOD ORDERABLES Final Result Performing Organization Address [facility] de Phone Number [facility] [place] [address] * Tacrolimus level trough (06/01/2024 9:20 AM CDT) Tacrolimus trough 6.5 ng/mL Comment: Interpretive Data Testing performed by liquid chromatography-tandem mass spectrometry. Therapeutic concentrations vary depending on type of transplanted organ and time elapsed since transplant. Typical trough concentrations range from 5-15 ng/mL. This test was developed and its performance characteristics determined by the [facility] consistent with CLIA requirements. This test has not been cleared or approved by the US Food and Drug administration. Current interpretive data last reviewed 2019. Blood 06/01/2024 9:20 AM CDT 06/01/2024 9:53 AM CDT Result [facility] Patricia Davidson MD PhD LAB BLOOD ORDERABLES Final Result Performing Organization Address [facility] [place] [address] * (ABNORMAL) eGFR (06/01/2024 6:17 AM CDT) [...] MD PhD LAB BLOOD ORDERABLES Final Result [facility] Department [place] [address] * (ABNORMAL) Renal function panel (06/01/2024 6:17 AM CDT) Sodium 135 135 - 145 mmol/L Potassium, pl 4.5 3.3 - 4.9 mmol/L [facility] Chloride 103 97 - 110 mmol/L [facility] CO2 22 22 - 32 mmol/L [facility] Anion gap 10 2 - 15 mmol/L [facility] BUN 24 6 - 25 mg/dL [facility] Creatinine 2.15(H) 0.60 - 1.10 mg/dL [facility] Glucose 120 70 - 199 mg/dL [facility] Comment: Interpretive Data Fasting glucose >/= 126 [...] 2022. Calcium 8.7 8.5 - 10.3 mg/dL [facility] Phosphorus, pl 2.8 2.3 - 4.5 mg/dL [facility] Albumin 3.6 3.5 - 5.0 g/dL [facility] Blood 06/01/2024 6:17 AM CDT 06/01/2024 6:52 AM CDT us Patricia Davidson MD PhD LAB BLOOD ORDERABLES Final Result [facility] Department [place] [address] * TRANSTHORACIC ECHO (TTE) COMPLETE W DOPPLER/CF WO CONTRAST (05/31/2024 2:50 PM CDT) Anatomical Region Laterality Modality Ultrasound 05/31/2024 2:12 PM CDT Narrative 05/31/2024 3:36 PM CDT [facility] [place] [address] Transthoracic Echocardiographic Report Patient Name: MISHA BROWNE : 1980 (43y 7m) Gender: F Study Date: 05/31/2024 02:12:33 PM Ht(Inch): 63 Wt(Lb): 184.97 BSA: 1.93 Civil Engineering Project Manager: Elisabeth Em RDCS Location: [id number] Order Provider: PINEDA HINOJOSA Heart Rate: 61 [...] trileaflet aortic valve. Mild aortic valve regurgitation (YQS=403 ms). The mean transaortic gradient is 4 [...] LA Length 4C 6.78 cm AI Decel Gentry 2.15 m/s2 LA Length 2C 6.66 cm [...] Procedure Note Stalin Krishna MD - 05/31/2024 [facility] [place] [address] Transthoracic Echocardiographic Report Patient Name: MISHA BROWNE : 1980 (43y 7m) Gender: F Study Date: 05/31/2024 02:12:33 PM Ht(Inch): 63 Wt(Lb): 184.97 BSA: 1.93 Civil Engineering Project Manager: Elisabeth Em RDCS Location: [place] [address] Order Provider:PINEDA HINOJOSA Heart Rate: 61 BMI: [...] Normal trileaflet aortic valve. Mild aortic valve regurgitation(VWH=775 ms). The mean transaortic gradient is 4 [...] [ -25.0 - -18.0 ] AI Decel Fewx1210.62 sec LA Length 4C 6.78 cm AI Decel Slope2.15 m/s2 LA Length 2C 6.66 cm AI VUP329.76 msec LA Volume BP 83.77 ml MV [...] [ 1.71 - 5.00 ] MV Decel Mobp772.34 msec [ 104.00 - 258.00 ] RA [...] of Race in Diagnosing Kidney Disease, JASN 2021). The CKD-EPI equation should not be used for patients with unstable renal function and has not been validated in children and those over 70. Current interpretive data was last reviewed 2021. Blood 05/31/2024 4:55 AM CDT 05/31/2024 5:48 AM CDT us Patricia Davidson MD PhD LAB BLOOD ORDERABLES Final Result [facility] Department [place] [address] * Differential, auto (05/31/2024 4:55 AM CDT) Neutrophil abs 4.9 1.5 - 6.5 K/cumm Imm gran abs 0.0 0.0 - 0.1 K/cumm [facility] Lymphocyte abs 1.4 0.8 - 3.3 K/cumm [facility] Monocyte abs 0.6 0.2 - 0.8 K/cumm [facility] Eosinophil abs 0.1 0.0 - 0.5 K/cumm [facility] Basophil abs 0.0 0.0 - 0.1 K/cumm [facility] Neutrophil pct 69.8 % [facility] Comment: Interpretive Data Percent cell count reference ranges are not reported, since discordance with absolute values may lead to misinterpretation of CBC data. Current Interpretive Data was last revised on 2017. Imm gran pct 0.6 % [facility] Comment: Interpretive Data Percent cell count reference ranges are not reported, since discordance with absolute values may lead to misinterpretation of CBC data. Current Interpretive Data was last revised on 2017. Lymphocyte pct 19.7 % [facility] Comment: Interpretive Data Percent cell count reference ranges are not reported, since discordance with absolute values may lead to misinterpretation of CBC data. Current Interpretive Data was last revised on 2017. Monocyte pct 8.0 % [facility] Comment: Interpretive Data Percent cell count reference ranges are not reported, since discordance with absolute values may lead to misinterpretation of CBC data. Current Interpretive Data was last revised on 2017. Eosinophil pct 1.9 % [facility] Comment: Interpretive Data Percent cell count reference ranges are not reported, since discordance with absolute values may lead to misinterpretation of CBC data. Current Interpretive Data was last revised on 2017. Basophil pct 0.0 % [facility] Comment: Interpretive Data Percent cell count reference ranges are not reported, since discordance with absolute values may lead to misinterpretation of CBC data. Current Interpretive Data was last revised on 2017. Blood 05/31/2024 4:55 AM CDT 05/31/2024 5:49 AM CDT Patricia Davidson MD PhD LAB BLOOD ORDERABLES Final Result Performing Organization Address [facility] de Phone Number [facility] [place] [address] * Tacrolimus level trough (05/31/2024 4:55 AM CDT) [facility] Tacrolimus trough 9.2 ng/mL Comment: Interpretive Data Testing performed by liquid chromatography-tandem mass spectrometry. Therapeutic concentrations vary depending on type of transplanted organ and time elapsed since transplant. Typical trough concentrations range from 5-15 ng/mL. This test was developed and its performance characteristics determined by the [facility] consistent with CLIA requirements. This test has not been cleared or approved by the US Food and Drug administration. Current interpretive data last reviewed 2019. Blood 05/31/2024 4:55 AM CDT 05/31/2024 5:49 AM CDT Patricia Davidson MD PhD LAB BLOOD ORDERABLES Final Result Performing Organization Address [facility] [place] [address] * (ABNORMAL) CBC with auto differential (05/31/2024 4:55 AM CDT) [facility] WBC 7.0 3.8 - 9.9 K/cumm Hgb 11.2(L) 11.9 - 15.5 g/dL [facility] Hct 31.4(L) 35.6 - 45.5 % [facility] Plt 102(L) 150 - 400 K/cumm [facility] MPV 10.9 9.1 - 12.3 fL [facility] RBC 3.15(L) 3.90 - 5.20 M/cumm [facility] MCV 99.7(H) 81.3 - 96.4 fL [facility] MCH 35.6(H) 27.1 - 33.3 pg [facility] MCHC 35.7 32.3 - 35.7 g/dL [facility] RDW CV 12.9 11.1 - 14.9 % [facility] RDW SD 46.0 35.7 - 48.1 fL [facility] NRBC abs 0.00 0.00 - 0.01 K/cumm [facility] Blood 05/31/2024 4:55 AM CDT 05/31/2024 5:49 AM CDT us Patricia Davidson MD PhD LAB BLOOD ORDERABLES Final Result [facility] Department [place] [address] * (ABNORMAL) Renal function panel (05/31/2024 4:55 AM CDT) Pathologist [facility] Sodium 136 135 - 145 mmol/L Potassium, pl 4.6 3.3 - 4.9 mmol/L [facility] Chloride 105 97 - 110 mmol/L [facility] CO2 23 22 - 32 mmol/L [facility] Anion gap 8 2 - 15 mmol/L [facility] BUN 30(H) 6 - 25 mg/dL [facility] Creatinine 2.90(H) 0.60 - 1.10 mg/dL [facility] Glucose 119 70 - 199 mg/dL [facility] Comment: Interpretive Data Fasting glucose >/= 126 [...] 2022. Calcium 8.4(L) 8.5 - 10.3 mg/dL [facility] Phosphorus, pl 3.2 2.3 - 4.5 mg/dL [facility] Albumin 3.6 3.5 - 5.0 g/dL [facility] Blood 05/31/2024 4:55 AM CDT 05/31/2024 5:48 AM CDT Result [facility] Patricia Davidson MD PhD LAB BLOOD ORDERABLES Final Result Performing Organization Address City/[facility] Co de Phone Number [facility] [employer] [place] [place] [address] * Sodium, urine, random (05/30/2024 5:23 PM CDT) Sodium, ur <20 mmol/L Comment: Interpretive Data No reference range established. Current interpretive data was last revised 2018. Urine 05/30/2024 5:23 PM CDT 05/30/2024 5:59 PM CDT Result [facility] Pineda Barrios MD LAB URINE ORDE RABLES Final Result Performing Organization Address [facility] Co de Phone Number [facility] [employer] [place] [address] * Creatinine, urine, random (05/30/2024 5:23 PM CDT) Creatinine Ur 121.1 mg/dL Comment: Interpretive Data No reference range established. Current interpretive data was last revised 2018. Urine 05/30/2024 5:23 PM CDT 05/30/2024 5:59 PM CDT Result [facility] Pineda Barrios MD LAB URINE ORDE RABLES Final Result Performing Organization Address [facility] Co de Phone Number [facility] [place] [employer] [address] * BK virus PCR quantitative Blood (05/30/2024 4:44 AM CDT) Pathologist [facility] BKV DNA result, pl Not Detected [facility] Comment: The quantifiable range of this assay is 21.5 IU/mL to 100,000,000 IU/mL (1.33 log IU/mL to 8.00 log IU/mL). Testing was performed by the G[employer] 6800 BKV Quantatitive Test version 2.0 ([employer] Testing performed at [facility] Current Interpretive Data was last revised on 2021. Blood 05/30/2024 4:44 AM CDT 05/30/2024 5:55 AM CDT Patricia Davidson MD PhD LAB MICROBIOLOGY - GENERAL ORDERABLES Final Result Performing Organization Address City/[facility]/ZIP Co de Phone Number [facility] [place] [employer] [address] [facility] * Collection Task for HLA Antibody Screen (05/30/2024 4:44 AM CDT) [facility] HLA Antibody Screen By Single Antigen Received Blood 05/30/2024 4:44 AM CDT 05/30/2024 9:01 AM CDT Patricia Davidson MD PhD LAB BLOOD ORDERABLES Final Result Performing Organization Address City/[facility]/ZIP Co de Phone Number [facility] [place] [employer] [place] [address] * Cytomegalovirus (CMV) DNA PCR, quantitative Blood (05/30/2024 4:44 AM CDT) [facility] CMV DNA Not Detected [facility] Comment: Interpretive Data: The quantifiable range of this assay is 34 IUnits/mL to 10,000,000 IUnits/mL (1.53 log IUnits/mL to 7.0 log IUnits/mL). Testing was performed by the GASTON 6800 CMV Test ([employer] Testing performed at [facility]. Current interpretive data was last revised on 2020. Blood 05/30/2024 4:44 AM CDT 05/30/2024 5:55 AM CDT Patricia Davidson MD PhD LAB MICROBIOLOGY - GENERAL ORDERABLES Final Result Performing Organization Address City/[facility]/ZIP Co de Phone Number [facility] Department [place] [employer] [place] [address] [facility] * (ABNORMAL) eGFR (05/30/2024 4:44 [...] BLOOD ORDERABLES Final Result Performing Organization Address City/[facility]/ZIP Co de Phone Number [facility] Department [place] [employer] [place] [address] * Differential, auto (05/30/2024 4:44 AM CDT) Neutrophil abs 5.0 1.5 - 6.5 K/cumm Imm gran abs 0.0 0.0 - 0.1 K/cumm [facility] Lymphocyte abs 1.7 0.8 - 3.3 K/cumm [facility] Monocyte abs 0.5 0.2 - 0.8 K/cumm [facility] Eosinophil abs 0.1 0.0 - 0.5 K/cumm [facility] Basophil abs 0.0 0.0 - 0.1 K/cumm [facility] Neutrophil pct 68.2 % [facility] Comment: Interpretive Data Percent cell count reference ranges are not reported, since discordance with absolute values may lead to misinterpretation of CBC data. Current Interpretive Data was last revised on 2017. Imm gran pct 0.5 % [facility] Comment: Interpretive Data Percent cell count reference ranges are not reported, since discordance with absolute values may lead to misinterpretation of CBC data. Current Interpretive Data was last revised on 2017. Lymphocyte pct 22.6 % [facility] Comment: Interpretive Data Percent cell count reference ranges are not reported, since discordance with absolute values may lead to misinterpretation of CBC data. Current Interpretive Data was last revised on 2017. Monocyte pct 6.8 % [facility] Comment: Interpretive Data Percent cell count reference ranges are not reported, since discordance with absolute values may lead to misinterpretation of CBC data. Current Interpretive Data was last revised on 2017. Eosinophil pct 1.8 % [facility] Comment: Interpretive Data Percent cell count reference ranges are not reported, since discordance with absolute values may lead to misinterpretation of CBC data. Current Interpretive Data was last revised on 2017. Basophil pct 0.1 % [facility] Comment: Interpretive Data Percent cell count reference ranges are not reported, since discordance with absolute values may lead to misinterpretation of CBC data. Current Interpretive Data was last revised on 2017. Blood 05/30/2024 4:44 AM CDT 05/30/2024 5:30 AM CDT us Patricia Davidson MD PhD LAB BLOOD ORDERABLES Final Result Performing Organization Address [facility] de Phone Number [facility] [place] [address] * Tacrolimus level trough (05/30/2024 4:44 AM CDT) [facility] Tacrolimus trough 16.5 ng/mL Comment: Interpretive Data Testing performed by liquid chromatography-tandem mass spectrometry. Therapeutic concentrations vary depending on type of transplanted organ and time elapsed since transplant. Typical trough concentrations range from 5-15 ng/mL. This test was developed and its performance characteristics determined by the [facility] consistent with CLIA requirements. This test has not been cleared or approved by the [place] Food and Drug administration. Current interpretive data last reviewed 2019. Blood 05/30/2024 4:44 AM CDT 05/30/2024 5:30 AM CDT Patricia Davidson MD PhD LAB BLOOD ORDERABLES Final Result Performing Organization Address [facility] Co de Phone Number [facility] Department [place] [address] * (ABNORMAL) CBC with auto differential (05/30/2024 4:44 AM CDT) [facility] WBC 7.4 3.8 - 9.9 K/cumm Hgb 12.0 11.9 - 15.5 g/dL [facility] Hct 33.9(L) 35.6 - 45.5 % [facility] Plt 130(L) 150 - 400 K/cumm [facility] MPV 10.8 9.1 - 12.3 fL [facility] RBC 3.40(L) 3.90 - 5.20 M/cumm [facility] MCV 99.7(H) 81.3 - 96.4 fL [facility] MCH 35.3(H) 27.1 - 33.3 pg [facility] MCHC 35.4 32.3 - 35.7 g/dL [facility] RDW CV 13.0 11.1 - 14.9 % [facility] RDW SD 47.4 35.7 - 48.1 fL [facility] NRBC abs 0.00 0.00 - 0.01 K/cumm [facility] Blood 05/30/2024 4:44 AM CDT 05/30/2024 5:30 AM CDT us Patricia Davidson MD PhD LAB BLOOD ORDERABLES Final Result [facility] Department [place] [address] * (ABNORMAL) Renal function panel (05/30/2024 4:44 AM CDT) Sodium 142 135 - 145 mmol/L Potassium, pl 4.2 3.3 - 4.9 mmol/L [facility] Chloride 108 97 - 110 mmol/L [facility] CO2 25 22 - 32 mmol/L [facility] Anion gap 9 2 - 15 mmol/L [facility] BUN 23 6 - 25 mg/dL [facility] Creatinine 2.76(H) 0.60 - 1.10 mg/dL [facility] Glucose 123 70 - 199 mg/dL [facility] Comment: Interpretive Data Fasting glucose >/= 126 [...] 2022. Calcium 9.1 8.5 - 10.3 mg/dL [facility] Phosphorus, pl 3.6 2.3 - 4.5 mg/dL [facility] Albumin 3.8 3.5 - 5.0 g/dL [facility] Blood 05/30/2024 4:44 AM CDT 05/30/2024 5:31 AM CDT Patricia Davidson MD PhD LAB BLOOD ORDERABLES Final Result [facility] Department [place] [address] * HLA Donor Specific Antibody Report (05/30/2024 [...] BLOOD ORDERABLES Final Result Performing Organization Address City/[facility]/ZIP Co de Phone Number [facility] * ECG 12 lead (05/30/2024 1:10 AM CDT) Ventricular Rate EKG/Min 75 BPM [facility] Atrial Rate 75 BPM [facility] WI-Interval (MSEC) 160 ms [facility] QRS-Interval (MSEC) 82 ms [facility] QT-Interval (MSEC) 456 ms [facility] QTc 509 ms [facility] P [place] 31 degrees [facility] R [place] -9 degrees [facility] T [place] 44 degrees [facility] Diagnosis Normal sinus rhythm Poor r wave progression associated with abnormal lead placement, obesity, pulmonary disease, anterior infarction. Prolonged QT Abnormal ECG When compared with ECG of 20-APR-2020 11:02, QRS voltage has increased Confirmed by BRODIE LEIGH M.D ([id number]) on 05/30/2024 12:29:55 PM [facility] 05/30/2024 1:10 AM CDT 05/30/2024 12:29 PM CDT us Patricia Davidson MD PhD ECG ORDERABLES Final Resul t [facility] * US Renal Transplant W Dopplers [...] by: Ziyad Purdy M.D. Jessee Mandel MD [facility] US PROCEDURES Aniya l Result * Influenza A/B, RSV, and COVID-19 PCR Nasopharyngeal (05/29/2024 4:10 PM CDT) Pathologist [facility] COVID-19 RNA Negative Negative [facility] Influenza A RNA Negative Negative [facility] Influenza B RNA Negative Negative [facility] RSV RNA Negative Negative [facility] Comment: Interpretive data: Testing performed by [facility] ([phone]). This test is performed using the [employer] Xpert Xpress CoV-2/Flu/RSV plus assay. This is a multiplex, real-time reverse transcriptase PCR assay intended for the qualitative detection of nucleic acid from SARS-CoV-2, influenza A, influenza B, and respiratory syncytial virus. This assay has been cleared by the [place] Food and Drug administration. The performance characteristics have been verified by the [facility]. Results must be considered in the clinical context, and a negative result does not rule out infection. Interpretive Data last revised 2023 Nasopharyngeal 05/29/2024 4: 10 PM CDT 05/29/2024 5:03 PM CDT Narrative [facility] - 05/29/2024 5:51 PM CDT Is the Patient experiencing symptoms consistent with COVID?->Unknown Mona Barrios MD LAB MICROBIOLOGY - GEN ERAL ORDERABLES Final Result [facility] Department [place] [address] [facility] * Respiratory pathogen panel Nasopharyngeal (05/29/2024 4:10 PM CDT) Pathologist [facility] Influenza A RNA Not Detected Not Detected Influenza B RNA Not Detected Not Detected [facility] RSV RNA Not Detected Not Detected [facility] COVID-19 RNA Not Detected Not Detected [facility] Coronavirus 229E RNA Not Detected Not Detected [facility] Coronavirus HKU1 RNA Not Detected Not Detected [facility] Coronavirus NL63 RNA Not Detected Not Detected [facility] Coronavirus OC43 RNA Not Detected Not Detected [facility] Adenovirus DNA Not Detected Not Detected [facility] Metapneumovirus RNA Not Detected Not Detected [facility] Rhinovirus/Enterov irus RNA Not Detected Not Detected [facility] Parainfluenza 1 RNA Not Detected Not Detected [facility] Parainfluenza 2 RNA Not Detected Not Detected [facility] Parainfluenza 3 RNA Not Detected Not Detected [facility] Parainfluenza 4 RNA Not Detected Not Detected [facility] B. pertussis DNA Not Detected Not Detected [facility] B. parapertussis DNA Not Detected Not Detected [facility] C. pneumoniae DNA Not Detected Not Detected [facility] M. pneumoniae DNA Not Detected Not Detected [facility] Nasopharyngeal 05/29/2024 4: 10 PM CDT 05/30/2024 6:07 AM CDT Narrative [facility] - 05/30/2024 7:05 AM CDT Interpretive Data The [employer] FilmArray Respiratory Panel (RP2.1) assay is a [...] assay has FDA clearance for testing of TELEPHOTO INST[employer]ER swabs. The performance of additional specimen types has been assessed by the performing laboratory. The performance characteristics of this assay have been determined by [facility] Infectious Disease Laboratory. Current interpretive data was last revised on 21. Pineda Barrios MD LAB MICROBIOLO GY - GENERAL ORDERABLES Final Result Performing Organization Address [facility]/ZIP Co de Phone Number [facility] Department [place] [address] * Urinalysis reflex to microscopic (05/29/2024 3:31 PM CDT) Color, ur Yellow Yellow Clarity, ur Clear Clear [facility] Specific gravity, ur 1.013 1.003 - 1.030 [facility] pH, urine 5.5 [facility] Comment: Interpretive Data U rine pH is affected by diet, medications, systemic acid-base disturbances, and renal tubular function. pH may affect urinary stone formation. For example, urine pH below 6.0 may help reduce the tendency for calcium phosphate stones and pH greater than 6.0 may reduce the tendency for uric acid stone formation. Source: [facility] [employer] Current Interpretive Data was last revised on 2017 Protein, ur ql Trace Negative [facility] Glucose, ur ql Negative Negative [facility] Ketones, ur Negative Negative [facility] Bilirubin, ur Negative Negative [facility] Blood, ur Negative Negative [facility] Urobilinogen, ur <2.0 <2.0 mg/dL [facility] Nitrite, ur Negative Negative [facility] Leukocyte esterase, ur Negative Negative [facility] UA reflex comment Reflex conditions for microscopic UA not met. [facility] Urine 05/29/2024 3:31 PM CDT 05/29/2024 3:38 PM CDT Shruti Damon MD LAB URINE ORDERABLES Aniya l Result Performing Organization Address City/[facility]/ZIP Co de Phone Number [facility] Department [place] [address] * POCT hCG, urine (05/29/2024 3:30 PM [...] ORDERABLES - DEVICE F inal Result [facility] Department [place] [address] * (ABNORMAL) eGFR (05/29/2024 2:57 PM CDT) Pathologist [facility] eGFR 30(L) >=60 mL/min/1. 73 m2 [...] LAB BLOOD ORDERABLES Aniya l Result [facility] [place] [address] * Differential, auto (05/29/2024 2:57 PM CDT) Neutrophil abs 5.5 1.5 - 6.5 K/cumm Imm gran abs 0.0 0.0 - 0.1 K/cumm [facility] Lymphocyte abs 0.9 0.8 - 3.3 K/cumm [facility] Monocyte abs 0.4 0.2 - 0.8 K/cumm [facility] Eosinophil abs 0.1 0.0 - 0.5 K/cumm [facility] Basophil abs 0.0 0.0 - 0.1 K[facility]cumm [facility] Neutrophil pct 79.6 % [facility] Comment: Interpretive Data Percent cell count reference ranges are not reported, since discordance with absolute values may lead to misinterpretation of CBC data. Current Interpretive Data was last revised on 2017. Imm gran pct 0.4 % [facility] Comment: Interpretive Data Percent cell count reference ranges are not reported, since discordance with absolute values may lead to misinterpretation of CBC data. Current Interpretive Data was last revised on 2017. Lymphocyte pct 13.7 % [facility] Comment: Interpretive Data Percent cell count reference ranges are not reported, since discordance with absolute values may lead to misinterpretation of CBC data. Current Interpretive Data was last revised on 2017. Monocyte pct 5.5 % [facility] Comment: Interpretive Data Percent cell count reference ranges are not reported, since discordance with absolute values may lead to misinterpretation of CBC data. Current Interpretive Data was last revised on 2017. Eosinophil pct 0.7 % [facility] Comment: Interpretive Data Percent cell count reference ranges are not reported, since discordance with absolute values may lead to misinterpretation of CBC data. Current Interpretive Data was last revised on 2017. Basophil pct 0.1 % [facility] Comment: Interpretive Data Percent cell count reference ranges are not reported, since discordance with absolute values may lead to misinterpretation of CBC data. Current Interpretive Data was last revised on 2017. Blood 05/29/2024 2:57 PM CDT 05/29/2024 3:21 PM CDT Shruti Damon MD LAB BLOOD ORDERABLES Aniya andrez Result Performing Organization Address [facility] Co de Phone Number [facility] Department [place] [address] * (ABNORMAL) CBC with auto differential (05/29/2024 2:57 PM CDT) [facility] WBC 6.9 3.8 - 9.9 K/cumm Hgb 13.5 11.9 - 15.5 g/dL [facility] Hct 38.8 35.6 - 45.5 % [facility] Plt 129(L) 150 - 400 K/cumm [facility] MPV 10.7 9.1 - 12.3 fL [facility] RBC 3.88(L) 3.90 - 5.20 M/cumm [facility] MCV 100.0(H) 81.3 - 96.4 fL [facility] MCH 34.8(H) 27.1 - 33.3 pg [facility] MCHC 34.8 32.3 - 35.7 g/dL [facility] RDW CV 13.0 11.1 - 14.9 % [facility] RDW SD 47.6 35.7 - 48.1 fL [facility] NRBC abs 0.00 0.00 - 0.01 K/cumm [facility] Blood Venous blood specimen / Unknown 05/29/2024 2:57 PM CDT 05/29/2024 3:21 PM CDT Shruti Damon MD LAB BLOOD ORDERABLES Aniya maguire Result Performing Organization Address [facility]/ZIP Co de Phone Number [facility] [place] [address] * Tacrolimus level random (05/29/2024 2:57 PM CDT) [facility] Tacrolimus random 20.2 ng/mL Comment: Interpretive Data Testing performed by liquid chromatography-tandem mass spectrometry. Therapeutic concentrations vary depending on type of transplanted organ and time elapsed since transplant. Typical trough concentrations range from 5-15 ng/mL. This test was developed and its performance characteristics determined by the [facility] consistent with CLIA requirements. This test has not been cleared or approved by the [place] Food and Drug administration. Current interpretive data last reviewed 2019. Blood 05/29/2024 2:57 PM CDT 05/29/2024 3:28 PM CDT Pineda Barrios MD LAB BLOOD ORDE RABVERONICA Final Result Performing Organization Address City/[facility]/ZIP Co de Phone Number [facility] Department [place] [address] * Lipase (05/29/2024 2:57 PM CDT) [facility] Lipase 12 10 - 99 Units/L Blood Venous blood specimen / Unknown 05/29/2024 2:57 PM CDT 05/29/2024 3:20 PM CDT Shruti Damon MD LAB BLOOD ORDERABLES Aniya l Result Performing Organization Address City/[facility]/ZIP Co de Phone Number [facility] Department [place] [employer] [place] [place] [address] * (ABNORMAL) Comprehensive metabolic panel (05/29/2024 2:57 PM CDT) [facility] Sodium 137 135 - 145 mmol/L Potassium, pl 4.6 3.3 - 4.9 mmol/L [facility] Chloride 107 97 - 110 mmol/L [facility] CO2 18(L) 22 - 32 mmol/L [facility] Anion gap 12 2 - 15 mmol/L [facility] BUN 22 6 - 25 mg/dL [facility] Creatinine 2.10(H) 0.60 - 1.10 mg/dL [facility] Glucose 185 70 - 199 mg/dL [facility] Comment: Interpretive Data Fasting glucose >/= 126 [...] 2022. Calcium 9.9 8.5 - 10.3 mg/dL [facility] Bilirubin, total 0.8 0.1 - 1.2 mg/dL [facility] Protein, pl 7.6 6.5 - 8.5 g/dL [facility] Albumin 4.0 3.5 - 5.0 g/dL [facility] Alk phos 372(H) 40 - 130 Units/L [facility] ALT 22 7 - 45 Units/L [facility] AST 28 10 - 45 Units/L [facility] Blood 05/29/2024 2:57 PM CDT 05/29/2024 3:20 PM CDT Shruti Damon MD LAB BLOOD ORDERABLES Aniya l Result [facility] Department [place] [address] * Hepatitis panel, acute (04/16/2020 6:35 AM FLIGHT STEWARD) Hep A IgM Nonreactive Nonreactive [facility] Comment: Interpretive Data: If Hep A IgM Ab is reported as Equivocal, a new sample should be drawn in two weeks for testing. Current interpretive data was last revised on 19. Hep B core IgM Nonreactive Nonreactive [facility] Comment: Interpretive Data If HepB Core IgM Ab is reported as Equivocal, a new sample should be drawn in two weeks for testing. Current interpretive data was last revised on 19. Hep C Ab Nonreactive Nonreactive [facility] Comment:Antibodies to HCV no t detected. Does NOT exclude the possibility of recent exposure to HCV. HepBsAg Nonreactive Nonreactive [facility] Blood specimen (specimen) 04/16/2020 6:35 AM FLIGHT STEWARD 04/16/2020 7:34 AM FLIGHT STEWARD us Jacob Gates MD LAB MICROBIOLOGY - GENER AL ORDERABLES Final Result [facility] Department [place] [address] from Last 3 Months or Most Recently Relevant to Health Maintenance Insurance [employer] OPEN [facility] [place] Advance Directives For more information, please contact: [phone] * Full Code (Latest Code Status on File) Date Activated Date Inactivated Comments 05/29/2024 10:30 PM 06/13/2024 7:10 PM * Full Code Date Activated Date Inactivated Comments 04/16/2020 1:16 AM 04/23/2020 6:51 PM * Full Code Date Activated Date Inactivated Comments 08/14/2019 3:14 PM 08/14/2019 9:26 PM * Full Code Date Activated Date Inactivated Comments 07/25/2019 6:15 AM 07/25/2019 11:51 PM Care Teams Warehouse Helper Relationship Specialty Start Date End Date Lyly Fiore NP [address] [place] [address] PCP - General Nurse Practitioner 05/29/24 Beatriz Lee MD [address] [place] [address] Referring Physician Gastroenterology 07/25/19 Taylor Kitchen, patient access representativeKitchen Manager 05/29/24
--- OUTSIDE RECORDS SUMMARY | 2024-07-24 14:56 | XMS_ITS | Encounter Summary ---
Author Organization [facility] Address [address] [place] [id number] Care Team Providers Care Rubbish Collector Name Role Phone Ashley ZUNIGA MD, Hermes Primary Care Provid er Lyly Fiore NP Primary Care Provider [phone] Encounter Details Date Type Department Care Team (Late st Contact Info) Description 08/25/2018 Abstract [facility] CONVERSION [address] [place] [address] , Generic Conversion, Social History Tobacco Use Types Packs/Day Years Used Date Smoking Tobacco: Every Day Cigarettes 0.5 15 Smokeless Tobacco: Never Alcohol Use Standard Drinks/Week Comments No 0 (1 standard drink = 0.6 oz pur e alcohol) Comments No Sex and Gender Information Value Date Recorded Sex Assigned at Female 04/05/2024 4:26 PM GOLD LEAF ROLLER Legal Sex Female 9:15 PM GOLD LEAF ROLLER Gender Identity Not on file Sexual Orientation Not on file documented as of this encounter Plan of Treatment Not on file documented as of this encounter Visit Diagnoses Not on filedocumented in this encounter Additional Health Concerns Infection Onset Date Last Indicated Resolved Time COVID-19 Rule Out 03/30/2020 03/30/2020 03/30/2020 9:29 PM GOLD LEAF ROLLER COVID-19 Rule Out 03/30/2020 03/30/2020 03/31/2020 12:28 PM GOLD LEAF ROLLER COVID-19 Rule Out 02/16/2024 02/16/2024 02/16/2024 9:16 PM GOLD LEAF ROLLER Rhinovirus 02/16/2024 02/16/2024 02/26/2024 12:3 2 AM GOLD LEAF ROLLER documented as of this encounter Care Teams Rubbish Collector Relationship Specialty Start Date End Date Hermes Ramirez III, MD [address] [address] PCP - General FAMILY PRACTICE 06/20/17 04/13/24 Lyly Fiore NP [address] [place] [address] PCP - General NURSE PRACTITIONER 04/14/24 documented as of this encounter
--- OUTSIDE RECORDS SUMMARY | 2024-07-24 14:56 | XMS_ITS ---
Author Organization [facility] Address [address] [place] [address] Care Team Providers Care Knife Edger Name Role Phone Beatriz Lee MD Unavailable [phone] Lyly Fiore NP Primary Care Provider Taylor Kitchen RN Unavailable Unav ailable Transplant Episode Liver Recipient [facility] ([place], [place]) - [facility] Transplanted on 05/09/2020 Marked as Active Follow-up on 07/01/2024 Reason: In Transition Process Liver CoordinatorMargusebas Kitchen RN Phone: N/A Fax: N/A Email: N/A Transplanted Elsewhere: [facility] ([place], [place]) - [facility] Coordinator: Phone: Fax: [place] Organ Diagnosis Organ Primary Contributory Liver Biliary Atresia: Extrahepatic Care Team Name Role Phone Fax Email Taylor Kitchen RN Liver Coordinator N/A N /A N/A Events Post-Transplant Pre-Transplant Transplanted: 05/09/2020 Appointments (06/24/2024 - 08/24/2024) When With Visit Type Description 06/26/2024 Transplant - Juan J Lee New Nicotine dependence with current use
--- OUTSIDE RECORDS SUMMARY | 2024-07-24 14:56 | XMS_ITS | Clinical Summary ---
Author Organization [facility] Address [address] [place] [address] Care Team Providers Care Certified Adaptive Physical Educator Name Role Phone Beatriz Lee MD Unavailable [phone] Lyly Fiore NP Primary Care Provider Taylor [...] t be different from the original. Lab: [facility]. . . Pharmacy: [place], [place] Patient enrolled in [employer] assistance program [...] Transplant starting process of assuming care from [facility], but in short term they recommend patient follow up with renal transplant at [facility]. - She is NOW actively enrolled in the [employer] free patient assistance program through mar 2025 - script needs to be sent to [facility] (sent). Hyperbilirubinemia 04/16/2020 Assessment & Plan (04/16/2020 5:01 AM PATTERN VAULT CLERK): - T. Bili of 7 (last was [...] 07/25/2019 Assessment & Plan (04/16/2020 2:25 AM PATTERN VAULT CLERK): See hyperbili problem. Concern for ascites Assessment [...] 12/14/2016 Assessment & Plan (04/16/2020 2:26 AM PATTERN VAULT CLERK): - Chronic, concerned that this may be [...] kidney transplant 04/2020. 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 We would need to call [facility] to identify a contracted center ([phone]). She lives close enough to [place] that would be the most likely city she could travel to. She also noted that she could always remarry an ex- as he has insurance that may be covered at [facility]. Appreciate note from nephrology and agree with restarting oral diuretics. Can continue tacrolimus at the current dose. MRI/MRCP completed and will review with radiology to identify if any role for PTC. Assessment & Plan (04/16/2020 2:26 AM PATTERN VAULT CLERK): S/p liver tranplant in 1992 for biliary [...] meds Assessment & Plan (04/16/2020 5:01 AM PATTERN VAULT CLERK): Unclear if progression of CKD vs acute [...] Cr of 1.8. She follows with local criminal justice teacher Dr. Mathew and thinks her baseline is 2.1. She was at 2.3 at OSH. She took some diuretics at home and was given lasix at [facility]SH ED. --UA, urine lytes --get records from her criminal justice teacher to find out baseline --random tacro level --monitor Is & Os; avoid nephrotoxins Encounters Date Type Department Care Team Description 07/24/2024 10:00 AM CDT Office Visit [facility] Orthopaedic Surgery [address] [facility] 6th [place] [address] [place] [address] Jessee Morton MD Lumbar spine pain (Primary Dx); Adolescent idiopathic scoliosis of thoracic region; Chronic bilateral low back pain without sciatica 07/24/2024 9:45 AM CDT Hospital Encounter [facility] ([facility]) [address] [place] [address] Jessee Morton MD Lumbar spine pain; Adolescent idiopathic scoliosis of thoracic region 07/24/2024 Telephone [facility] Transplant Liver [address] [facility] [address] [facility] [place] [address] Lorena Turner 07/22/2024 Telephone [facility] and [facility] Transplant Liver [address] [facility] [address] [facility] [place] [address] 94[address] Dafne Dukes RN 07/19/2024 Telephone [facility] Transplant Liver [address] [place] [address] 340 [address] [facility] [place] [address] 139[address] Karmen Garsia, ANSON After Hours; Abdominal Pain 07/17/2024 Telephone [facility] Transplant Liver [address] [facility] [address] [facility] [place] [address] 17[address] Lorena Turner 07/12/2024 5:48 PM CDT - 07/12/2024 11:59 PM CDT Hospital Encounter [facility] ([facility]) [address] [place] [address] Discharge Disposition: Discharge to home or self care 07/12/2024 5:46 PM CDT - 07/12/2024 11:59 PM CDT Hospital Encounter [facility] ([facility]) [address] [place] [address] Discharge Disposition: Discharge to home or self care 07/12/2024 5:44 PM CDT - 07/12/2024 11:59 PM CDT Hospital Encounter [facility] ([facility]) [address] [place] [address] Discharge Disposition: Discharge to home or self care 07/12/2024 5:43 PM CDT - 07/12/2024 11:59 PM CDT Hospital Encounter [facility] ([facility]) [address] [place] [address] 19468 Discharge Disposition: Discharge to home or self care 07/12/2024 Telephone [facility] Nephrology [address] [place] [address] for Advanced Medicine 5th [place] [address] [place] [address] Wilson Swift MD 07/11/2024 Telephone [facility] Transplant Liver [address] [facility] [address] [place] [address] 167[address] Dafne Dukes RN 07/11/2024 Telephone [facility] Transplant Liver [address] [facility] [address] Mailstop 90-29-8 [place] [address] Yulisa Welch 07/10/2024 Telephone [facility] Transplant Liver [address] [facility] [address] Mail[address] [phone] [place] [address] Liyah Kamara 07/09/2024 8:48 AM CDT - 07/09/2024 11:59 PM CDT Hospital Encounter [facility] ([facility]) [address] [place] [address] Discharge Disposition: Discharge to home or self care 07/09/2024 8:46 AM CDT - 07/09/2024 11:59 PM CDT Hospital Encounter [facility] ([facility]) [address] [place] [address] Discharge Disposition: Discharge to home or self care 07/09/2024 8:44 AM CDT - 07/09/2024 11:59 PM CDT Hospital Encounter [facility] ([facility]) [address] [place] [address] Discharge Disposition: Discharge to home or self care 07/09/2024 Telephone [facility] Transplant Liver [address] [facility] [address] [id number] [place] [address] Dafne Dukes RN 07/09/2024 Telephone [facility] Transplant Liver [address] [facility] [address] [place] [address] Yulisa Welch 07/04/2024 Telephone [facility] Transplant Liver [address] [facility] [address] Mail[address] [phone] [place] [address] Lorena Turner 07/04/2024 Telephone [facility] Transplant Liver [address] [facility] [address] Mail[address] 90-298 [place] [address] Lorena Turner 07/03/2024 Telephone [facility] Transplant Liver [address] [facility] [address] [address] [place] [address] Dafne Dukes, ANSON 07/02/2024 Telephone [facility] Transplant Liver [address] [facility] [address] [id number] [place] [address] Dafne Dukes, ANSON 07/02/2024 Telephone [facility] Transplant Liver [address] [facility] [address] [id number] [place] [address] Dafne Dukes, ANSON 06/26/2024 9:30 AM CDT Office Visit [facility] Gasteroenterology [address] [facility] 12th [place] [address] [place] [address] Beatriz Lee MD Nicotine dependence with current use 06/26/2024 Orders Only [facility] Transplant Liver [address] [facility] [address] Mailstop [phone] [place] [address] Dafne Dukes RN Status post liver transplant (HCC) (Primary Dx); Encounter for long-term (current) use of medications 06/26/2024 Telephone [facility] Transplant Liver [address] [place] [address] 34[address] Mail[address] [phone] [place] [address] Lorena Turner 06/26/2024 Orders Only [facility] Transplant Liver [address] [place] [address] [address] Mail[address] [phone] [place] [address] Dafne Dukes RN History of liver transplant (HCC) (Primary Dx); Encounter for long-term (current) use of medications 06/26/2024 Documentation [facility] Trans[facility] Liver [address] [place] [address] [address] Mailstop [phone] [place] [address] Dafne Dukes RN 06/26/2024 Telephone [facility] Transplant Liver [address] [place] [address] 34[address] [phone] [place] [address] Dafne Dukes RN 06/14/2024 [facility] Initial Eligibility Review [facility] OP CASE MANAGEMENT [address] [place] [address] Shireen Griffin RN 06/13/2024 Orders Only [facility] Transplant Liver [address] [place] [address] [address] Mail[address] [phone] [place] [address] Dafne Dukes, ANSON Kidney transplanted (Primary Dx) 06/06/2024 Telephone [facility] Transplant Kidney [address] 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 [address] [place], [place] [address]op -04-1 [place] [address] Liyah Kamara 05/07/2024 Telephone [facility] Trans[facility] Liver [address] [facility] [address] 90-67-5 [place] [address] Lorena Turner 05/07/2024 Telephone [facility] Transplant Liver [address] [facility] [address] [place], [place] [address]op -58-5 [place] [address] Lorena Turner 05/06/2024 Documentation [facility] Trans[facility] Liver [address] [facility] [address] [phone] [place] [address] Taylor Kitchen RN 05/06/2024 Telephone [facility] Transplant Liver [address] [facility] [address] [phone] [place] [address] Lorena Turner Referral - Liver Txp from [...] on file Legal Sex Female 10:10 PM PATTERN VAULT CLERK Gender Identity Not on file Sexual [...] 07/24/2024 11:00 AM CDT Plan of Treatment Health Maintenance [...] CDT HEPATITIS PANEL, ACUTE Routine 6:35 AM PATTERN VAULT CLERK from Last 3 Months or Most Recently [...] and agrees with it. Electronically signed by: Ene Arauz 07/24/2024 12:01 PM CDT EXAMINATION: XR SCOLIOSIS [...] it. Electronically signed by: Carlos Hayes D.O. Result [facility] Jessee Morton MD IMG XR PROCEDURES Final Re sult * Neuro CT Outside Reference (07/12/2024 5:48 PM CDT) Impressions [facility] - 07/12/2024 5:48 PM CDT These images are for Reference purposes only and have not been reviewed by [facility] Radiology. There will be no report generated by a [facility] Radiologist. Narrative [facility] - 07/12/2024 5:48 PM CDT EXAMINATION: Images For Reference Purposes Only Result [facility] Jessee Morton MD IMG CT PROCEDURES Final Re sult Performing Organization Address [facility] de Phone Number [facility] * Neuro CT Outside Reference (07/12/2024 5:46 PM CDT) Impressions [facility] - 07/12/2024 5:46 PM CDT These images are for Reference purposes only and have not been reviewed by [facility] Radiology. There will be no report generated by a [facility] Radiologist. Narrative [facility] - 07/12/2024 5:46 PM CDT EXAMINATION: Images For Reference Purposes Only Result [facility] Jessee Morton MD IMG CT PROCEDURES Final Re sult Performing Organization Address [facility] Co de Phone Number [facility] * Neuro MR Outside Reference (07/12/2024 5:44 PM CDT) Impressions [facility] - 07/12/2024 5:44 PM CDT These images are for Reference purposes only and have not been reviewed by [facility]. There will be no report generated by a [facility] Radiologist. Narrative [facility] - 07/12/2024 5:44 PM CDT EXAMINATION: Images For Reference Purposes Only Result [facility] Jessee Morton MD IMG MRI PROCEDURES Final R esult Performing Organization Address [facility] de Phone Number [facility] * Neuro MR Outside Reference (07/12/2024 5:43 PM CDT) Impressions RAD_STANLEY_[facility] - 07/12/2024 5:43 PM CDT These images are for Reference purposes only and have not been reviewed by [facility]. There will be no report generated by a [facility] Radiologist. Narrative [facility] - 07/12/2024 5:43 PM CDT EXAMINATION: Images For Reference Purposes Only Result [facility] Jessee Morton MD [facility] MRI PROCEDURES Final R esult Performing Organization Address [facility] de Phone Number [facility] * XR Outside Reference (07/09/2024 8:48 AM CDT) Impressions [facility] - 07/09/2024 8:48 AM CDT These images are for Reference purposes only and have not been reviewed by [facility]. There will be no report generated by a [facility] Radiologist. Narrative [facility] - 07/09/2024 8:48 AM CDT EXAMINATION: Images For Reference Purposes Only Result [facility] Jessee Morton MD IMG XR PROCEDURES Final Re sult Performing Organization Address [facility] de Phone Number [facility] * XR Outside Reference (07/09/2024 8:46 AM CDT) Impressions [facility] - 07/09/2024 8:46 AM CDT These images are for Reference purposes only and have not been reviewed by [facility]. There will be no report generated by a [facility] Radiologist. Narrative [facility] - 07/09/2024 8:46 AM CDT EXAMINATION: Images For Reference Purposes Only Jessee Morton MD IMG XR PROCEDURES Final Re sult Performing Organization Address [facility] Co de Phone Number [facility] * XR Outside Reference (07/09/2024 8:44 AM CDT) Impressions PUNEETH - 07/09/2024 8:44 AM CDT These images are for Reference purposes only and have not been reviewed by [facility]. There will be no report generated by a [facility] Radiologist. Narrative ELLIE_KOFFIH - 07/09/2024 8:44 AM CDT EXAMINATION: Images For Reference Purposes Only us Jessee Morton MD IMG XR PROCEDURES Final Re sult Performing Organization Address [facility] de Phone Number [facility] * (ABNORMAL) eGFR [...] ORDERABLES Final Result Performing Organization Address [facility]/ZIP Co de Phone Number [facility] Department [place] [address] * Differential, auto (06/13/2024 5:15 AM CDT) Neutrophil abs 3.2 1.5 - 6.5 K/cumm Imm gran abs 0.0 0.0 - 0.1 K/cumm [facility] Lymphocyte abs 0.9 0.8 - 3.3 K/cumm [facility] Monocyte abs 0.3 0.2 - 0.8 K/cumm [facility] Eosinophil abs 0.2 0.0 - 0.5 K/cumm [facility] Basophil abs 0.0 0.0 - 0.1 K/cumm [facility] Neutrophil pct 69.4 % [facility] Comment: Interpretive Data Percent cell count reference ranges are not reported, since discordance with absolute values may lead to misinterpretation of CBC data. Current Interpretive Data was last revised on 2017. Imm gran pct 0.2 % [facility] Comment: Interpretive Data Percent cell count reference ranges are not reported, since discordance with absolute values may lead to misinterpretation of CBC data. Current Interpretive Data was last revised on 2017. Lymphocyte pct 20.4 % [facility] Comment: Interpretive Data Percent cell count reference ranges are not reported, since discordance with absolute values may lead to misinterpretation of CBC data. Current Interpretive Data was last revised on 2017. Monocyte pct 5.9 % [facility] Comment: Interpretive Data Percent cell count reference ranges are not reported, since discordance with absolute values may lead to misinterpretation of CBC data. Current Interpretive Data was last revised on 2017. Eosinophil pct 3.9 % [facility] Comment: Interpretive Data Percent cell count reference ranges are not reported, since discordance with absolute values may lead to misinterpretation of CBC data. Current Interpretive Data was last revised on 2017. Basophil pct 0.2 % [facility] Comment: Interpretive Data Percent cell count reference ranges are not reported, since discordance with absolute values may lead to misinterpretation of CBC data. Current Interpretive Data was last revised on 2017. Blood 06/13/2024 5:15 AM CDT 06/13/2024 6:05 AM CDT us aMrtha Butterfield MD LAB BLOOD ORDERABLES F inal Result Performing Organization Address [facility] de Phone Number [facility] [place] [address] * Tacrolimus level trough (06/13/2024 5:15 AM CDT) [facility] Tacrolimus trough 7.4 ng/mL Comment: Interpretive Data Testing performed by liquid chromatography-tandem mass spectrometry. Therapeutic concentrations vary depending on type of transplanted organ and time elapsed since transplant. Typical trough concentrations range from 5-15 ng/mL. This test was developed and its performance characteristics determined by the [facility] consistent with CLIA requirements. This test has not been cleared or approved by the [place] Food and Drug administration. Current interpretive data last reviewed 2019. Blood 06/13/2024 5:15 AM CDT 06/13/2024 6:05 AM CDT Patricia Davidson MD PhD LAB BLOOD ORDERABLES Final Result Performing Organization Address [facility] de Phone Number [facility] [place] [address] * (ABNORMAL) CBC with auto differential (06/13/2024 5:15 AM CDT) [facility] WBC 4.6 3.8 - 9.9 K/cumm Hgb 11.1(L) 11.9 - 15.5 g/dL [facility] Hct 32.8(L) 35.6 - 45.5 % [facility] Plt 112(L) 150 - 400 K/cumm [facility] MPV 11.6 9.1 - 12.3 fL [facility] RBC 3.13(L) 3.90 - 5.20 M/cumm [facility] MCV 104.8(H) 81.3 - 96.4 fL [facility] MCH 35.5(H) 27.1 - 33.3 pg [facility] MCHC 33.8 32.3 - 35.7 g/dL [facility] RDW CV 14.8 11.1 - 14.9 % [facility] RDW SD 56.5(H) 35.7 - 48.1 fL [facility] NRBC abs 0.00 0.00 - 0.01 K/cumm [facility] Blood 06/13/2024 5:15 AM CDT 06/13/2024 6:05 AM CDT us Martha Butterfield MD LAB BLOOD ORDERABLES F inal Result [facility] Department [place] [address] * (ABNORMAL) Renal function panel (06/13/2024 5:15 AM CDT) Sodium 144 135 - 145 mmol/L Potassium, pl 4.9 3.3 - 4.9 mmol/L [facility] Chloride 111(H) 97 - 110 mmol/L [facility] CO2 25 22 - 32 mmol/L [facility] Anion gap 8 2 - 15 mmol/L [facility] BUN 27(H) 6 - 25 mg/dL [facility] Creatinine 2.03(H) 0.60 - 1.10 mg/dL [facility] Glucose 121 70 - 199 mg/dL [facility] Comment: Interpretive Data Fasting glucose >/= [...] 2022. Calcium 8.6 8.5 - 10.3 mg/dL [facility] Phosphorus, pl 3.9 2.3 - 4.5 mg/dL [facility] Albumin 3.6 3.5 - 5.0 g/dL [facility] Blood 06/13/2024 5:15 AM CDT 06/13/2024 6:05 AM CDT Patricia Davidson MD PhD LAB BLOOD ORDERABLES Final Result Performing Organization Address City/[facility]/ZIP Co de Phone Number [facility] Department of [employer] [place] [address] * (ABNORMAL) eGFR (06/12/2024 5:52 AM CDT) [...] BLOOD ORDERABLES Final Result Performing Organization Address City/[facility]/ZIP Co de Phone Number [facility] Department of [employer] [place] [place] [address] * Tacrolimus level trough (06/12/2024 5:52 AM CDT) Pathologist [facility] Tacrolimus trough 6.2 ng/mL Comment: Interpretive Data Testing performed by liquid chromatography-tandem mass spectrometry. Therapeutic concentrations vary depending on type of transplanted organ and time elapsed since transplant. Typical trough concentrations range from 5-15 ng/mL. This test was developed and its performance characteristics determined by the [facility] consistent with CLIA requirements. This test has not been cleared or approved by the [place] Food and Drug administration. Current interpretive data last reviewed 2019. Blood 06/12/2024 5:52 AM CDT 06/12/2024 6:18 AM CDT us Patricia Davidson MD PhD LAB BLOOD ORDERABLES Final Result [facility] Department [place] [address] * (ABNORMAL) Renal function panel (06/12/2024 5:52 AM CDT) [facility] Sodium 145 135 - 145 mmol/L Potassium, pl 5.0(H) 3.3 - 4.9 mmol/L [facility] Chloride 112(H) 97 - 110 mmol/L [facility] CO2 27 22 - 32 mmol/L [facility] Anion gap 6 2 - 15 mmol/L [facility] BUN 30(H) 6 - 25 mg/dL [facility] Creatinine 2.16(H) 0.60 - 1.10 mg/dL [facility] Glucose 101 70 - 199 mg/dL [facility] Comment: Interpretive Data Fasting glucose >/= [...] 2022. Calcium 8.7 8.5 - 10.3 mg/dL [facility] Phosphorus, pl 4.3 2.3 - 4.5 mg/dL [facility] Albumin 3.4(L) 3.5 - 5.0 g/dL [facility] Blood 06/12/2024 5:52 AM CDT 06/12/2024 6:17 AM CDT Patricia Davidson MD PhD LAB BLOOD ORDERABLES Final Result [facility] Department [place] [address] * Potassium, whole blood (06/11/2024 11:29 PM CDT) Potassium, bld 4.7 3.3 - 4.9 mmol/L Blood 06/11/2024 11:2 9 PM CDT 06/11/2024 11:48 PM CDT us Patrick Hernandez MD LAB BLOOD ORDERABLES Fi nal Result Performing Organization Address [facility] Co de Phone Number [facility] Department of [employer] [place] [address] * (ABNORMAL) eGFR (06/11/2024 5:14 AM CDT) eGFR 28(L) >=60 mL/min/1. 73 m2 Comment: [...] MD PhD LAB BLOOD ORDERABLES Final Result [facility] Department [place] [address] * Differential, auto (06/11/2024 5:14 AM CDT) Neutrophil abs 2.3 1.5 - 6.5 K/cumm Imm gran abs 0.0 0.0 - 0.1 K/cumm [facility] Lymphocyte abs 1.0 0.8 - 3.3 K/cumm [facility] Monocyte abs 0.3 0.2 - 0.8 K/cumm [facility] Eosinophil abs 0.2 0.0 - 0.5 K/cumm [facility] Basophil abs 0.0 0.0 - 0.1 K/cumm [facility] Neutrophil pct 61.8 % [facility] Comment: Interpretive Data Percent cell count reference ranges are not reported, since discordance with absolute values may lead to misinterpretation of CBC data. Current Interpretive Data was last revised on 2017. Imm gran pct 0.5 % [facility] Comment: Interpretive Data Percent cell count reference ranges are not reported, since discordance with absolute values may lead to misinterpretation of CBC data. Current Interpretive Data was last revised on 2017. Lymphocyte pct 26.6 % [facility] Comment: Interpretive Data Percent cell count reference ranges are not reported, since discordance with absolute values may lead to misinterpretation of CBC data. Current Interpretive Data was last revised on 2017. Monocyte pct 6.6 % [facility] Comment: Interpretive Data Percent cell count reference ranges are not reported, since discordance with absolute values may lead to misinterpretation of CBC data. Current Interpretive Data was last revised on 2017. Eosinophil pct 4.2 % [facility] Comment: Interpretive Data Percent cell count reference ranges are not reported, since discordance with absolute values may lead to misinterpretation of CBC data. Current Interpretive Data was last revised on 2017. Basophil pct 0.3 % [facility] Comment: Interpretive Data Percent cell count reference ranges are not reported, since discordance with absolute values may lead to misinterpretation of CBC data. Current Interpretive Data was last revised on 2017. Blood 06/11/2024 5:14 AM CDT 06/11/2024 6:24 AM CDT Martha Butterfield MD LAB BLOOD ORDERABLES F inal Result Performing Organization Address [facility] de Phone Number [facility] [employer] [place] [place] [address] * Tacrolimus level trough (06/11/2024 5:14 AM CDT) [facility] Tacrolimus trough 5.4 ng/mL Comment: Interpretive Data Testing performed by liquid chromatography-tandem mass spectrometry. Therapeutic concentrations vary depending on type of transplanted organ and time elapsed since transplant. Typical trough concentrations range from 5-15 ng/mL. This test was developed and its performance characteristics determined by the [facility] consistent with CLIA requirements. This test has not been cleared or approved by the US Food and Drug administration. Current interpretive data last reviewed 2019. Blood 06/11/2024 5:14 AM CDT 06/11/2024 5:51 AM CDT Patricia Davidosn MD PhD LAB BLOOD ORDERABLES Final Result Performing Organization Address [facility] Co de Phone Number [facility] [place] [address] * (ABNORMAL) CBC with auto differential (06/11/2024 5:14 AM CDT) [facility] WBC 3.8 3.8 - 9.9 K/cumm Hgb 10.3(L) 11.9 - 15.5 g/dL [facility] Hct 30.0(L) 35.6 - 45.5 % [facility] Plt 93(L) 150 - 400 K/cumm [facility] MPV 11.5 9.1 - 12.3 fL [facility] RBC 2.82(L) 3.90 - 5.20 M/cumm [facility] MCV 106.4(H) 81.3 - 96.4 fL [facility] MCH 36.5(H) 27.1 - 33.3 pg [facility] MCHC 34.3 32.3 - 35.7 g/dL [facility] RDW CV 14.5 11.1 - 14.9 % [facility] RDW SD 55.4(H) 35.7 - 48.1 fL [facility] NRBC abs 0.00 0.00 - 0.01 K/cumm [facility] Blood 06/11/2024 5:14 AM CDT 06/11/2024 6:24 AM CDT Martha Butterfield MD LAB BLOOD ORDERABLES F inal Result [facility] Department [place] [address] * (ABNORMAL) Renal function panel (06/11/2024 5:14 AM CDT) [facility] Sodium 141 135 - 145 mmol/L Potassium, pl 4.6 3.3 - 4.9 mmol/L [facility] Chloride 109 97 - 110 mmol/L [facility] CO2 23 22 - 32 mmol/L [facility] Anion gap 9 2 - 15 mmol/L [facility] BUN 29(H) 6 - 25 mg/dL [facility] Creatinine 2.24(H) 0.60 - 1.10 mg/dL [facility] Glucose 133 70 - 199 mg/dL [facility] Comment: Interpretive Data Fasting glucose >/= [...] 2022. Calcium 8.6 8.5 - 10.3 mg/dL [facility] Phosphorus, pl 3.8 2.3 - 4.5 mg/dL [facility] Albumin 3.4(L) 3.5 - 5.0 g/dL [facility] Blood 06/11/2024 5:14 AM CDT 06/11/2024 5:51 AM CDT us Patricia Davidson MD PhD LAB BLOOD ORDERABLES Final Result [facility] Department of [employer] [place] [place] [address] * Potassium, whole blood (06/10/2024 10:18 PM CDT) Potassium, bld 4.7 3.3 - 4.9 mmol/L Blood 06/10/2024 10:1 8 PM CDT 06/10/2024 11:20 PM CDT us Martha Butterfield MD LAB BLOOD ORDERABLES F inal Result [facility] [employer] [place] [address] * POCT glucose (06/10/2024 1:15 PM CDT) Glucose, POC 145 70 - 199 mg/dL Blood 06/10/2024 1:15 PM CDT 06/10/2024 1:15 PM CDT Martha Butterfield MD LAB POCT ORDERABLES - DEVICE Final Result Performing Organization Address City/[facility]/ZIP Co de Phone Number [facility] [employer] [place] [address] * Potassium (06/10/2024 10:34 AM CDT) Potassium, pl 4.7 3.3 - 4.9 mmol/L Blood 06/10/2024 10:3 4 AM CDT 06/10/2024 11:28 AM CDT Martha Butterfield MD LAB BLOOD ORDERABLES F inal Result Performing Organization Address [facility] Co de Phone Number [facility] [place] [address] * (ABNORMAL) Hepatic function panel (06/10/2024 10:34 AM CDT) Bilirubin, total 0.7 0.1 - 1.2 mg/dL Bilirubin, direct 0.3 0.1 - 0.3 mg/dL [facility] Protein, pl 6.3(L) 6.5 - 8.5 g/dL [facility] Albumin 3.7 3.5 - 5.0 g/dL [facility] Alk phos 253(H) 40 - 130 Units/L [facility] ALT 23 7 - 45 Units/L [facility] AST 25 10 - 45 Units/L [facility] Blood 06/10/2024 10:3 4 AM CDT 06/10/2024 11:28 AM CDT Martha Butterfield MD LAB BLOOD ORDERABLES F inal Result Performing Organization Address [facility] Co de Phone Number [facility] [place] [address] * POCT glucose (06/10/2024 9:48 AM CDT) Glucose, POC 157 70 - 199 mg/dL Blood 06/10/2024 9:48 AM CDT 06/10/2024 9:48 AM CDT Martha Butterfield MD LAB POCT ORDERABLES - DEVICE Final Result Performing Organization Address [facility] de Phone Number [facility] [employer] [place] [address] * POCT glucose (06/10/2024 6:35 AM CDT) Pathologist [facility] Glucose, POC 137 70 - 199 mg/dL Blood 06/10/2024 6:35 AM CDT 06/10/2024 6:35 AM CDT Martha Butterfield MD LAB POCT ORDERABLES - DEVICE Final Result Performing Organization Address [facility] de Phone Number [facility] [employer] [place] [place] [address] * (ABNORMAL) Potassium, whole blood (06/10/2024 4:17 AM CDT) [facility] Potassium, bld 5.2(H) 3.3 - 4.9 mmol/L Blood 06/10/2024 4:17 AM CDT 06/10/2024 4:24 AM CDT Lyndsey Ramos MD LAB BLOOD ORDERABLES Aniya l Result Performing Organization Address [facility] Co de Phone Number [facility] [employer] [place] [address] * (ABNORMAL) eGFR (06/10/2024 4:14 AM CDT) [facility] eGFR 30(L) >=60 mL/min/1. 73 m2 [...] ORDERABLES Final Result Performing Organization Address [facility] de Phone Number [facility] Department [place] [address] * Tacrolimus level trough (06/10/2024 4:14 AM CDT) [facility] Tacrolimus trough 9.6 ng/mL Comment: Interpretive Data Testing performed by liquid chromatography-tandem mass spectrometry. Therapeutic concentrations vary depending on type of transplanted organ and time elapsed since transplant. Typical trough concentrations range from 5-15 ng/mL. This test was developed and its performance characteristics determined by the [facility] consistent with CLIA requirements. This test has not been cleared or approved by the US Food and Drug administration. Current interpretive data last reviewed 2019. Blood 06/10/2024 4:14 AM CDT 06/10/2024 4:32 AM CDT us Patricia Davidson MD PhD LAB BLOOD ORDERABLES Final Result Performing Organization Address City/[facility] Co de Phone Number [facility] Department [place] [address] * (ABNORMAL) Renal function panel (06/10/2024 4:14 AM CDT) Sodium 142 135 - 145 mmol/L Potassium, pl 5.6(H) 3.3 - 4.9 mmol/L [facility] Comment:Hemolyzed; Potassium value may be falsely elevated by as much as 0.3-0.5 mmol/L. Suggest redraw and reanalysis. Chloride 112(H) 97 - 110 mmol/L [facility] CO2 24 22 - 32 mmol/L [facility] Anion gap 6 2 - 15 mmol/L [facility] BUN 29(H) 6 - 25 mg/dL [facility] Creatinine 2.11(H) 0.60 - 1.10 mg/dL [facility] Glucose 158 70 - 199 mg/dL [facility] Comment: Interpretive Data Fasting glucose >/= [...] 2022. Calcium 9.1 8.5 - 10.3 mg/dL [facility] Phosphorus, pl 3.7 2.3 - 4.5 mg/dL [facility] Albumin 3.6 3.5 - 5.0 g/dL [facility] Blood 06/10/2024 4:14 AM CDT 06/10/2024 4:32 AM CDT us Patricia Davidson MD PhD LAB BLOOD ORDERABLES Final Result [facility] Department [place] [address] * (ABNORMAL) POCT glucose (06/10/2024 2:27 AM CDT) Glucose, POC 210(H) 70 - 199 mg/dL Blood 06/10/2024 2:27 AM CDT 06/10/2024 2:27 AM CDT Martha Butterfield MD LAB POCT ORDERABLES - DEVICE Final Result Performing Organization Address [facility] Co de Phone Number [facility] [employer] [place] [address] * (ABNORMAL) POCT glucose (06/10/2024 1:25 AM CDT) Glucose, POC 277(H) 70 - 199 mg/dL Blood 06/10/2024 1:25 AM CDT 06/10/2024 1:25 AM CDT Martha Butterfield MD LAB POCT ORDERABLES - DEVICE Final Result Performing Organization Address [facility] Co de Phone Number [facility] [employer] [place] [address] * POCT glucose (06/10/2024 12:24 AM CDT) Glucose, POC 138 70 - 199 mg/dL Blood 06/10/2024 12:2 4 AM CDT 06/10/2024 12:24 AM CDT Martha Butterfield MD LAB POCT ORDERABLES - DEVICE Final Result Performing Organization Address [facility] Co de Phone Number [facility] [employer] [place] [address] * ECG 12 lead (06/10/2024 12:20 AM CDT) [facility] Ventricular Rate EKG/Min 65 BPM [facility] Atrial Rate 65 BPM [facility] AK-Interval (MSEC) 160 ms [facility] QRS-Interval (MSEC) 72 ms [facility] QT-Interval (MSEC) 452 ms [facility] QTc 470 ms [facility] P [place] -11 degrees [facility] R [place] -16 degrees [facility] T [place] 54 degrees [facility] Diagnosis Normal sinus rhythm Low voltage QRS [...] Septal leads Confirmed by BRODIE LEIGH M.D ([id number]) on 06/11/2024 10:14:44 AM [facility] 06/10/2024 12:2 0 AM CDT 06/11/2024 10:14 AM CDT us Martha Butterfield MD ECG ORDERABLES Final Result [facility] * (ABNORMAL) Potassium, whole blood (06/09/2024 11:26 PM CDT) [facility] Potassium, bld 5.7(H) 3.3 - 4.9 mmol/L Blood 06/09/2024 11:2 6 PM CDT 06/09/2024 11:37 PM CDT us Martha Butterfield MD LAB BLOOD ORDERABLES F inal Result [facility] Department [place] [address] * (ABNORMAL) eGFR (06/09/2024 6:33 PM CDT) [facility] eGFR 30(L) >=60 mL/min/1. 73 m2 [...] MD LAB BLOOD ORDERABLES F inal Result [facility] Department [place] [address] * (ABNORMAL) Renal function panel (06/09/2024 6:33 PM CDT) Sodium 141 135 - 145 mmol/L Potassium, pl 5.5(H) 3.3 - 4.9 mmol/L [facility] Comment:Hemolyzed; Potassium value may be falsely elevated by as much as 0.3-0.5 mmol/L. Suggest redraw and reanalysis. Chloride 112(H) 97 - 110 mmol/L [facility] CO2 17(L) 22 - 32 mmol/L [facility] Anion gap 12 2 - 15 mmol/L [facility] BUN 32(H) 6 - 25 mg/dL [facility] Creatinine 2.08(H) 0.60 - 1.10 mg/dL [facility] Glucose 111 70 - 199 mg/dL [facility] Comment: Interpretive Data Fasting glucose >/= [...] 2022. Calcium 8.7 8.5 - 10.3 mg/dL [facility] Phosphorus, pl 4.0 2.3 - 4.5 mg/dL [facility] Albumin 3.1(L) 3.5 - 5.0 g/dL [facility] Blood 06/09/2024 6:33 PM CDT 06/09/2024 6:48 PM CDT Martha Butterfield MD LAB BLOOD ORDERABLES F inal Result [facility] Department [place] [address] * (ABNORMAL) eGFR (06/09/2024 5:12 AM CDT) [...] MD PhD LAB BLOOD ORDERABLES Final Result [facility] Department [place] [address] * Differential, auto (06/09/2024 5:12 AM CDT) Neutrophil abs 2.5 1.5 - 6.5 K/cumm Imm gran abs 0.0 0.0 - 0.1 K/cumm [facility] Lymphocyte abs 1.0 0.8 - 3.3 K/cumm [facility] Monocyte abs 0.4 0.2 - 0.8 K/cumm [facility] Eosinophil abs 0.2 0.0 - 0.5 K/cumm [facility] Basophil abs 0.0 0.0 - 0.1 K/cumm [facility] Neutrophil pct 61.7 % [facility] Comment: Interpretive Data Percent cell count reference ranges are not reported, since discordance with absolute values may lead to misinterpretation of CBC data. Current Interpretive Data was last revised on 2017. Imm gran pct 0.2 % [facility] Comment: Interpretive Data Percent cell count reference ranges are not reported, since discordance with absolute values may lead to misinterpretation of CBC data. Current Interpretive Data was last revised on 2017. Lymphocyte pct 25.2 % [facility] Comment: Interpretive Data Percent cell count reference ranges are not reported, since discordance with absolute values may lead to misinterpretation of CBC data. Current Interpretive Data was last revised on 2017. Monocyte pct 8.8 % [facility] Comment: Interpretive Data Percent cell count reference ranges are not reported, since discordance with absolute values may lead to misinterpretation of CBC data. Current Interpretive Data was last revised on 2017. Eosinophil pct 3.9 % [facility] Comment: Interpretive Data Percent cell count reference ranges are not reported, since discordance with absolute values may lead to misinterpretation of CBC data. Current Interpretive Data was last revised on 2017. Basophil pct 0.2 % [facility] Comment: Interpretive Data Percent cell count reference ranges are not reported, since discordance with absolute values may lead to misinterpretation of CBC data. Current Interpretive Data was last revised on 2017. Blood 06/09/2024 5:12 AM CDT 06/09/2024 5:43 AM CDT Martha Butterfield MD LAB BLOOD ORDERABLES F inal Result Performing Organization Address [facility] Co de Phone Number [facility] Department of [employer] [place] [place] [address] * Tacrolimus level trough (06/09/2024 5:12 AM CDT) Pathologist [facility] Tacrolimus trough 7.5 ng/mL Comment: Interpretive Data Testing performed by liquid chromatography-tandem mass spectrometry. Therapeutic concentrations vary depending on type of transplanted organ and time elapsed since transplant. Typical trough concentrations range from 5-15 ng/mL. This test was developed and its performance characteristics determined by the [facility] consistent with CLIA requirements. This test has not been cleared or approved by the [place] Food and Drug administration. Current interpretive data last reviewed 2019. Blood 06/09/2024 5:12 AM CDT 06/09/2024 5:43 AM CDT us Patricia Davidson MD PhD LAB BLOOD ORDERABLES Final Result Performing Organization Address City/[facility]/ZIP Co de Phone Number [facility] [employer] [place] [address] * (ABNORMAL) CBC with auto differential (06/09/2024 5:12 AM CDT) WBC 4.1 3.8 - 9.9 K/cumm Hgb 10.9(L) 11.9 - 15.5 g/dL [facility] Hct 32.1(L) 35.6 - 45.5 % [facility] Plt 104(L) 150 - 400 K/cumm [facility] MPV 11.5 9.1 - 12.3 fL [facility] RBC 3.05(L) 3.90 - 5.20 M/cumm [facility] MCV 105.2(H) 81.3 - 96.4 fL [facility] MCH 35.7(H) 27.1 - 33.3 pg [facility] MCHC 34.0 32.3 - 35.7 g/dL [facility] RDW CV 14.7 11.1 - 14.9 % [facility] RDW SD 55.7(H) 35.7 - 48.1 fL [facility] NRBC abs 0.00 0.00 - 0.01 K/cumm [facility] Blood 06/09/2024 5:12 AM CDT 06/09/2024 5:43 AM CDT us Martha Butterfield MD LAB BLOOD ORDERABLES F inal Result [facility] Department [place] [address] * (ABNORMAL) Renal function panel (06/09/2024 5:12 AM CDT) Sodium 144 135 - 145 mmol/L Potassium, pl 5.1(H) 3.3 - 4.9 mmol/L [facility] Chloride 111(H) 97 - 110 mmol/L [facility] CO2 23 22 - 32 mmol/L [facility] Anion gap 10 2 - 15 mmol/L [facility] BUN 33(H) 6 - 25 mg/dL [facility] Creatinine 2.08(H) 0.60 - 1.10 mg/dL [facility] Glucose 104 70 - 199 mg/dL [facility] Comment: Interpretive Data Fasting glucose >/= [...] 2022. Calcium 8.7 8.5 - 10.3 mg/dL [facility] Phosphorus, pl 4.4 2.3 - 4.5 mg/dL [facility] Albumin 3.5 3.5 - 5.0 g/dL [facility] Blood 06/09/2024 5:12 AM CDT 06/09/2024 5:43 AM CDT Patricia Davidson MD PhD LAB BLOOD ORDERABLES Final Result Performing Organization Address City/[facility]/ZIP Co de Phone Number [facility] Department [place] [address] * (ABNORMAL) Potassium, whole blood (06/08/2024 8:37 AM CDT) Pathologist [facility] Potassium, bld 5.0(H) 3.3 - 4.9 mmol/L Blood 06/08/2024 8:37 AM CDT 06/08/2024 9:17 AM CDT Martha Butterfield MD LAB BLOOD ORDERABLES F inal Result [facility] Department [place] [address] * (ABNORMAL) eGFR (06/08/2024 5:40 AM CDT) Pathologist [facility] eGFR 30(L) >=60 mL/min/1. 73 m2 [...] ORDERABLES Final Result Performing Organization Address [facility] de Phone Number [facility] Department of [employer] [place] [place] [address] * Tacrolimus level trough (06/08/2024 5:40 AM CDT) [facility] Tacrolimus trough 6.6 ng/mL Comment: Interpretive Data Testing performed by liquid chromatography-tandem mass spectrometry. Therapeutic concentrations vary depending on type of transplanted organ and time elapsed since transplant. Typical trough concentrations range from 5-15 ng/mL. This test was developed and its performance characteristics determined by the [facility] consistent with CLIA requirements. This test has not been cleared or approved by the [place] Food and Drug administration. Current interpretive data last reviewed 2019. Blood 06/08/2024 5:40 AM CDT 06/08/2024 6:19 AM CDT Patricia Davidson MD PhD LAB BLOOD ORDERABLES Final Result Performing Organization Address [facility] Co de Phone Number [facility] [employer] [place] [address] * (ABNORMAL) Renal function panel (06/08/2024 5:40 AM CDT) Sodium 144 135 - 145 mmol/L Potassium, pl 5.1(H) 3.3 - 4.9 mmol/L [facility] Chloride 114(H) 97 - 110 mmol/L [facility] CO2 23 22 - 32 mmol/L [facility] Anion gap 7 2 - 15 mmol/L [facility] BUN 31(H) 6 - 25 mg/dL [facility] Creatinine 2.07(H) 0.60 - 1.10 mg/dL [facility] Glucose 100 70 - 199 mg/dL [facility] Comment: Interpretive Data Fasting glucose >/= [...] 2022. Calcium 8.7 8.5 - 10.3 mg/dL [facility] Phosphorus, pl 4.5 2.3 - 4.5 mg/dL [facility] Albumin 3.3(L) 3.5 - 5.0 g/dL [facility] Blood 06/08/2024 5:40 AM CDT 06/08/2024 6:19 AM CDT us Patricia Davidson MD PhD LAB BLOOD ORDERABLES Final Result [facility] Department [place] [address] * (ABNORMAL) eGFR (06/07/2024 5:17 AM CDT) [...] MD PhD LAB BLOOD ORDERABLES Final Result [facility] Department [place] [address] * Differential, auto (06/07/2024 5:17 AM CDT) Neutrophil abs 2.9 1.5 - 6.5 K/cumm Imm gran abs 0.0 0.0 - 0.1 K/cumm [facility] Lymphocyte abs 1.1 0.8 - 3.3 K/cumm [facility] Monocyte abs 0.3 0.2 - 0.8 K/cumm [facility] Eosinophil abs 0.2 0.0 - 0.5 K/cumm [facility] Basophil abs 0.0 0.0 - 0.1 K/cumm [facility] Neutrophil pct 64.2 % [facility] Comment: Interpretive Data Percent cell count reference ranges are not reported, since discordance with absolute values may lead to misinterpretation of CBC data. Current Interpretive Data was last revised on 2017. Imm gran pct 0.2 % [facility] Comment: Interpretive Data Percent cell count reference ranges are not reported, since discordance with absolute values may lead to misinterpretation of CBC data. Current Interpretive Data was last revised on 2017. Lymphocyte pct 24.2 % [facility] Comment: Interpretive Data Percent cell count reference ranges are not reported, since discordance with absolute values may lead to misinterpretation of CBC data. Current Interpretive Data was last revised on 2017. Monocyte pct 7.2 % [facility] Comment: Interpretive Data Percent cell count reference ranges are not reported, since discordance with absolute values may lead to misinterpretation of CBC data. Current Interpretive Data was last revised on 2017. Eosinophil pct 4.0 % [facility] Comment: Interpretive Data Percent cell count reference ranges are not reported, since discordance with absolute values may lead to misinterpretation of CBC data. Current Interpretive Data was last revised on 2017. Basophil pct 0.2 % [facility] Comment: Interpretive Data Percent cell count reference ranges are not reported, since discordance with absolute values may lead to misinterpretation of CBC data. Current Interpretive Data was last revised on 2017. Blood 06/07/2024 5:17 AM CDT 06/07/2024 6:14 AM CDT us Martha Butterfield MD LAB BLOOD ORDERABLES F inal Result [facility] Department [place] [address] * Tacrolimus level trough (06/07/2024 5:17 AM CDT) Pathologist [facility] Tacrolimus trough 6.2 ng/mL Comment: Interpretive Data Testing performed by liquid chromatography-tandem mass spectrometry. Therapeutic concentrations vary depending on type of transplanted organ and time elapsed since transplant. Typical trough concentrations range from 5-15 ng/mL. This test was developed and its performance characteristics determined by the [facility] consistent with CLIA requirements. This test has not been cleared or approved by the US Food and Drug administration. Current interpretive data last reviewed 2019. Blood 06/07/2024 5:17 AM CDT 06/07/2024 6:14 AM CDT us Patricia Davidson MD PhD LAB BLOOD ORDERABLES Final Result Performing Organization Address [facility] Co de Phone Number [facility] Department [place] [address] * (ABNORMAL) CBC with auto differential (06/07/2024 5:17 AM CDT) [facility] WBC 4.5 3.8 - 9.9 K/cumm Hgb 10.7(L) 11.9 - 15.5 g/dL [facility] Hct 31.3(L) 35.6 - 45.5 % [facility] Plt 100(L) 150 - 400 K/cumm [facility] MPV 11.8 9.1 - 12.3 fL [facility] RBC 2.96(L) 3.90 - 5.20 M/cumm [facility] MCV 105.7(H) 81.3 - 96.4 fL [facility] MCH 36.1(H) 27.1 - 33.3 pg [facility] MCHC 34.2 32.3 - 35.7 g/dL [facility] RDW CV 14.2 11.1 - 14.9 % [facility] RDW SD 53.7(H) 35.7 - 48.1 fL [facility] NRBC abs 0.00 0.00 - 0.01 K/cumm [facility] Blood 06/07/2024 5:17 AM CDT 06/07/2024 6:14 AM CDT us Martha Butterfield MD LAB BLOOD ORDERABLES F inal Result Performing Organization Address City/[facility]/ZIP Co de Phone Number [facility] Department [place] [address] * (ABNORMAL) Renal function panel (06/07/2024 5:17 AM CDT) Pathologist [facility] Sodium 137 135 - 145 mmol/L Potassium, pl 4.9 3.3 - 4.9 mmol/L [facility] Chloride 108 97 - 110 mmol/L [facility] CO2 21(L) 22 - 32 mmol/L [facility] Anion gap 8 2 - 15 mmol/L [facility] BUN 28(H) 6 - 25 mg/dL [facility] Creatinine 1.92(H) 0.60 - 1.10 mg/dL [facility] Glucose 125 70 - 199 mg/dL [facility] Comment: Interpretive Data Fasting glucose >/= [...] 2022. Calcium 8.1(L) 8.5 - 10.3 mg/dL [facility] Phosphorus, pl 3.8 2.3 - 4.5 mg/dL [facility] Albumin 3.4(L) 3.5 - 5.0 g/dL [facility] Blood 06/07/2024 5:17 AM CDT 06/07/2024 6:13 AM CDT us Patricia Davidson MD PhD LAB BLOOD ORDERABLES Final Result [facility] Department [place] [address] * Potassium, whole blood (06/06/2024 11:29 AM CDT) [facility] Potassium, bld 4.9 3.3 - 4.9 mmol/L Blood 06/06/2024 11:2 9 AM CDT 06/06/2024 12:20 PM CDT us Martha Butterfield MD LAB BLOOD ORDERABLES F inal Result Performing Organization Address [facility] Co de Phone Number [facility] Department [place] [address] * (ABNORMAL) eGFR (06/06/2024 4:28 AM CDT) [...] ORDERABLES Final Result Performing Organization Address [facility] Co de Phone Number [facility] [place] [address] * Tacrolimus level trough (06/06/2024 4:28 AM CDT) Tacrolimus trough 5.9 ng/mL Comment: Interpretive Data Testing performed by liquid chromatography-tandem mass spectrometry. Therapeutic concentrations vary depending on type of transplanted organ and time elapsed since transplant. Typical trough concentrations range from 5-15 ng/mL. This test was developed and its performance characteristics determined by the [facility] consistent with CLIA requirements. This test has not been cleared or approved by the US Food and Drug administration. Current interpretive data last reviewed 2019. Blood 06/06/2024 4:28 AM CDT 06/06/2024 5:44 AM CDT Patricia Davidson MD PhD LAB BLOOD ORDERABLES Final Result [facility] Department [place] [address] * (ABNORMAL) Renal function panel (06/06/2024 4:28 AM CDT) Sodium 143 135 - 145 mmol/L Potassium, pl 5.3(H) 3.3 - 4.9 mmol/L [facility] Chloride 113(H) 97 - 110 mmol/L [facility] CO2 23 22 - 32 mmol/L [facility] Anion gap 7 2 - 15 mmol/L [facility] BUN 30(H) 6 - 25 mg/dL [facility] Creatinine 1.99(H) 0.60 - 1.10 mg/dL [facility] Glucose 86 70 - 199 mg/dL [facility] Comment: Interpretive Data Fasting glucose >/= [...] 2022. Calcium 8.5 8.5 - 10.3 mg/dL [facility] Phosphorus, pl 4.1 2.3 - 4.5 mg/dL [facility] Albumin 3.1(L) 3.5 - 5.0 g/dL [facility] Blood 06/06/2024 4:28 AM CDT 06/06/2024 5:36 AM CDT Patricia Davidson MD PhD LAB BLOOD ORDERABLES Final Result Performing Organization Address [facility] de Phone Number [facility] Department [place] [address] * (ABNORMAL) eGFR (06/05/2024 5:49 AM CDT) [facility] eGFR 32(L) >=60 mL/min/1. 73 m2 Comment: [...] BLOOD ORDERABLES Final Result Performing Organization Address City/[facility]/ZIP Co de Phone Number [facility] Department [place] [address] * Differential, auto (06/05/2024 5:49 AM CDT) [facility] Neutrophil abs 2.5 1.5 - 6.5 K/cumm Imm gran abs 0.0 0.0 - 0.1 K/cumm [facility] Lymphocyte abs 1.0 0.8 - 3.3 K/cumm [facility] Monocyte abs 0.4 0.2 - 0.8 K/cumm [facility] Eosinophil abs 0.1 0.0 - 0.5 K/cumm [facility] Basophil abs 0.0 0.0 - 0.1 K/cumm [facility] Neutrophil pct 62.5 % [facility] Comment: Interpretive Data Percent cell count reference ranges are not reported, since discordance with absolute values may lead to misinterpretation of CBC data. Current Interpretive Data was last revised on 2017. Imm gran pct 0.3 % [facility] Comment: Interpretive Data Percent cell count reference ranges are not reported, since discordance with absolute values may lead to misinterpretation of CBC data. Current Interpretive Data was last revised on 2017. Lymphocyte pct 24.3 % [facility] Comment: Interpretive Data Percent cell count reference ranges are not reported, since discordance with absolute values may lead to misinterpretation of CBC data. Current Interpretive Data was last revised on 2017. Monocyte pct 9.3 % [facility] Comment: Interpretive Data Percent cell count reference ranges are not reported, since discordance with absolute values may lead to misinterpretation of CBC data. Current Interpretive Data was last revised on 2017. Eosinophil pct 3.3 % [facility] Comment: Interpretive Data Percent cell count reference ranges are not reported, since discordance with absolute values may lead to misinterpretation of CBC data. Current Interpretive Data was last revised on 2017. Basophil pct 0.3 % [facility] Comment: Interpretive Data Percent cell count reference ranges are not reported, since discordance with absolute values may lead to misinterpretation of CBC data. Current Interpretive Data was last revised on 2017. Blood 06/05/2024 5:49 AM CDT 06/05/2024 6:48 AM CDT us Patricia Davidson MD PhD LAB BLOOD ORDERABLES Final Result [facility] Department [place] [address] * Tacrolimus level trough (06/05/2024 5:49 AM CDT) [facility] Tacrolimus trough 5.9 ng/mL Comment: Interpretive Data Testing performed by liquid chromatography-tandem mass spectrometry. Therapeutic concentrations vary depending on type of transplanted organ and time elapsed since transplant. Typical trough concentrations range from 5-15 ng/mL. This test was developed and its performance characteristics determined by the [facility] consistent with CLIA requirements. This test has not been cleared or approved by the US Food and Drug administration. Current interpretive data last reviewed 2019. Blood 06/05/2024 5:49 AM CDT 06/05/2024 6:48 AM CDT us Patricia Davidson MD PhD LAB BLOOD ORDERABLES Final Result [facility] Department [place] [address] * (ABNORMAL) CBC with auto differential (06/05/2024 5:49 AM CDT) [facility] WBC 4.0 3.8 - 9.9 K/cumm Hgb 10.9(L) 11.9 - 15.5 g/dL [facility] Hct 31.7(L) 35.6 - 45.5 % [facility] Plt 102(L) 150 - 400 K/cumm [facility] MPV 11.6 9.1 - 12.3 fL [facility] RBC 3.05(L) 3.90 - 5.20 M/cumm [facility] MCV 103.9(H) 81.3 - 96.4 fL [facility] MCH 35.7(H) 27.1 - 33.3 pg [facility] MCHC 34.4 32.3 - 35.7 g/dL [facility] RDW CV 14.0 11.1 - 14.9 % [facility] RDW SD 52.3(H) 35.7 - 48.1 fL [facility] NRBC abs 0.00 0.00 - 0.01 K/cumm [facility] Blood 06/05/2024 5:49 AM CDT 06/05/2024 6:48 AM CDT us Patricia Davidson MD PhD LAB BLOOD ORDERABLES Final Result [facility] Department [place] [address] * (ABNORMAL) Renal function panel (06/05/2024 5:49 AM CDT) Pathologist [facility] Sodium 140 135 - 145 mmol/L Potassium, pl 4.6 3.3 - 4.9 mmol/L [facility] Chloride 109 97 - 110 mmol/L [facility] CO2 22 22 - 32 mmol/L [facility] Anion gap 9 2 - 15 mmol/L [facility] BUN 29(H) 6 - 25 mg/dL [facility] Creatinine 1.99(H) 0.60 - 1.10 mg/dL [facility] Glucose 98 70 - 199 mg/dL [facility] Comment: Interpretive Data Fasting glucose >/= [...] 2022. Calcium 8.6 8.5 - 10.3 mg/dL [facility] Phosphorus, pl 4.3 2.3 - 4.5 mg/dL [facility] Albumin 3.5 3.5 - 5.0 g/dL [facility] Blood 06/05/2024 5:49 AM CDT 06/05/2024 6:48 AM CDT us Patricia Davidson MD PhD LAB BLOOD ORDERABLES Final Result [facility] Department [place] [address] * ECG 12 lead (06/04/2024 5:41 AM CDT) Ventricular Rate EKG/Min 67 BPM [facility] Atrial Rate 67 BPM [facility] AK-Interval (MSEC) 202 ms [facility] QRS-Interval (MSEC) 74 ms [facility] QT-Interval (MSEC) 426 ms [facility] QTc 450 ms [facility] P [place] 5 degrees [facility] R [place] -19 degrees [facility] T [place] 53 degrees [facility] Diagnosis Normal sinus rhythm 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 73 m2 Comment: [...] MD PhD LAB BLOOD ORDERABLES Final Result [facility] Department [place] [address] * Differential, auto (06/04/2024 5:10 AM CDT) Neutrophil abs 3.1 1.5 - 6.5 K/cumm Imm gran abs 0.0 0.0 - 0.1 K/cumm [facility] Lymphocyte abs 1.3 0.8 - 3.3 K/cumm [facility] Monocyte abs 0.5 0.2 - 0.8 K/cumm [facility] Eosinophil abs 0.2 0.0 - 0.5 K/cumm [facility] Basophil abs 0.0 0.0 - 0.1 K/cumm [facility] Neutrophil pct 61.7 % [facility] Comment: Interpretive Data Percent cell count reference ranges are not reported, since discordance with absolute values may lead to misinterpretation of CBC data. Current Interpretive Data was last revised on 2017. Imm gran pct 0.4 % [facility] Comment: Interpretive Data Percent cell count reference ranges are not reported, since discordance with absolute values may lead to misinterpretation of CBC data. Current Interpretive Data was last revised on 2017. Lymphocyte pct 25.2 % [facility] Comment: Interpretive Data Percent cell count reference ranges are not reported, since discordance with absolute values may lead to misinterpretation of CBC data. Current Interpretive Data was last revised on 2017. Monocyte pct 9.1 % [facility] Comment: Interpretive Data Percent cell count reference ranges are not reported, since discordance with absolute values may lead to misinterpretation of CBC data. Current Interpretive Data was last revised on 2017. Eosinophil pct 3.0 % [facility] Comment: Interpretive Data Percent cell count reference ranges are not reported, since discordance with absolute values may lead to misinterpretation of CBC data. Current Interpretive Data was last revised on 2017. Basophil pct 0.6 % [facility] Comment: Interpretive Data Percent cell count reference ranges are not reported, since discordance with absolute values may lead to misinterpretation of CBC data. Current Interpretive Data was last revised on 2017. Blood 06/04/2024 5:10 AM CDT 06/04/2024 6:22 AM CDT Patricia Davidson MD PhD LAB BLOOD ORDERABLES Final Result Performing Organization Address [facility] Co de Phone Number [facility] Department of [employer] [place] [address] * Tacrolimus level trough (06/04/2024 5:10 AM CDT) Pathologist [facility] Tacrolimus trough 6.1 ng/mL Comment: Interpretive Data Testing performed by liquid chromatography-tandem mass spectrometry. Therapeutic concentrations vary depending on type of transplanted organ and time elapsed since transplant. Typical trough concentrations range from 5-15 ng/mL. This test was developed and its performance characteristics determined by the [facility] consistent with CLIA requirements. This test has not been cleared or approved by the [place] Food and Drug administration. Current interpretive data last reviewed 2019. Blood 06/04/2024 5:10 AM CDT 06/04/2024 6:22 AM CDT Patricia Davidson MD PhD LAB BLOOD ORDERABLES Final Result Performing Organization Address [facility] Co de Phone Number [facility] [employer] [place] [address] * (ABNORMAL) CBC with auto differential (06/04/2024 5:10 AM CDT) Pathologist [facility] WBC 5.0 3.8 - 9.9 K/cumm Hgb 11.2(L) 11.9 - 15.5 g/dL [facility] Hct 32.3(L) 35.6 - 45.5 % [facility] Plt 102(L) 150 - 400 K/cumm [facility] MPV 11.6 9.1 - 12.3 fL [facility] RBC 3.13(L) 3.90 - 5.20 M/cumm [facility] MCV 103.2(H) 81.3 - 96.4 fL [facility] MCH 35.8(H) 27.1 - 33.3 pg [facility] MCHC 34.7 32.3 - 35.7 g/dL [facility] RDW CV 13.7 11.1 - 14.9 % [facility] RDW SD 51.2(H) 35.7 - 48.1 fL [facility] NRBC abs 0.00 0.00 - 0.01 K/cumm [facility] Blood 06/04/2024 5:1 0 AM CDT 06/04/2024 6:22 AM CDT us Patricia Davidson MD PhD LAB BLOOD ORDERABLES Final Result [facility] Department [place] [address] * (ABNORMAL) Renal function panel (06/04/2024 5:10 AM CDT) Sodium 144 135 - 145 mmol/L Potassium, pl 4.8 3.3 - 4.9 mmol/L [facility] Chloride 112(H) 97 - 110 mmol/L [facility] CO2 23 22 - 32 mmol/L [facility] Anion gap 9 2 - 15 mmol/L [facility] BUN 25 6 - 25 mg/dL [facility] Creatinine 1.98(H) 0.60 - 1.10 mg/dL [facility] Glucose 81 70 - 199 mg/dL [facility] Comment: Interpretive Data Fasting glucose >/= [...] 2022. Calcium 8.9 8.5 - 10.3 mg/dL [facility] Phosphorus, pl 4.3 2.3 - 4.5 mg/dL [facility] Albumin 3.4(L) 3.5 - 5.0 g/dL [facility] Blood 06/04/2024 5:10 AM CDT 06/04/2024 6:23 AM CDT Patricia Davidson MD PhD LAB BLOOD ORDERABLES Final Result Performing Organization Address [facility] Co de Phone Number [facility] Department of [employer] [place] [address] * Folate (06/04/2024 12:39 AM CDT) Folic acid See Comment >=5.0 ng/mL Comment: Credited; Hemolyzed Specimen Telephone report made to: Luz Maria Iyer RN on 06/04/2024 08:49:44 CDT by SAUD . Blood 06/04/2024 12:3 9 AM CDT 06/04/2024 1:24 AM CDT Shea Babcock MD LAB BLOOD ORDERABLE S Final Result Performing Organization Address [facility] Co de Phone Number [facility] Department of [employer] [place] [place] [address] * Protein / creatinine ratio, urine, random (06/03/2024 6:15 PM CDT) Protein, ur, quant <5.0 mg/dL Comment: Interpretive Data No reference range established. Current interpretive data was last revised 2018. Creatinine Ur 39.1 mg/dL [facility] Comment: Interpretive Data No reference range established. Current interpretive data was last revised 2018. Protein/creatinin e ratio <127.9 0.0 - 180.0 mg/g CR [facility] Urine 06/03/2024 6:15 PM CDT 06/03/2024 7:42 PM CDT Pineda Barrois MD LAB URINE ORDE RABLES Final Result Performing Organization Address City/[facility] Co de Phone Number [facility] Department of [employer] [place] [address] * (ABNORMAL) eGFR (06/03/2024 8:54 AM CDT) Pathologist [facility] eGFR 33(L) >=60 mL/min/1. 73 m2 [...] BLOOD ORDERABLES Final Result Performing Organization Address City/[facility]/ZIP Co de Phone Number [facility] Department of [employer] [place] [place] [address] * Differential, auto (06/03/2024 8:54 AM CDT) Neutrophil abs 2.8 1.5 - 6.5 K/cumm Imm gran abs 0.0 0.0 - 0.1 K/cumm [facility] Lymphocyte abs 1.3 0.8 - 3.3 K/cumm [facility] Monocyte abs 0.4 0.2 - 0.8 K/cumm [facility] Eosinophil abs 0.2 0.0 - 0.5 K/cumm [facility] Basophil abs 0.0 0.0 - 0.1 K/cumm [facility] Neutrophil pct 59.1 % [facility] Comment: Interpretive Data Percent cell count reference ranges are not reported, since discordance with absolute values may lead to misinterpretation of CBC data. Current Interpretive Data was last revised on 2017. Imm gran pct 0.4 % [facility] Comment: Interpretive Data Percent cell count reference ranges are not reported, since discordance with absolute values may lead to misinterpretation of CBC data. Current Interpretive Data was last revised on 2017. Lymphocyte pct 27.4 % [facility] Comment: Interpretive Data Percent cell count reference ranges are not reported, since discordance with absolute values may lead to misinterpretation of CBC data. Current Interpretive Data was last revised on 2017. Monocyte pct 9.1 % [facility] Comment: Interpretive Data Percent cell count reference ranges are not reported, since discordance with absolute values may lead to misinterpretation of CBC data. Current Interpretive Data was last revised on 2017. Eosinophil pct 3.8 % [facility] Comment: Interpretive Data Percent cell count reference ranges are not reported, since discordance with absolute values may lead to misinterpretation of CBC data. Current Interpretive Data was last revised on 2017. Basophil pct 0.2 % [facility] Comment: Interpretive Data Percent cell count reference ranges are not reported, since discordance with absolute values may lead to misinterpretation of CBC data. Current Interpretive Data was last revised on 2017. Blood 06/03/2024 8:54 AM CDT 06/03/2024 9:23 AM CDT Patricia Davidson MD PhD LAB BLOOD ORDERABLES Final Result Performing Organization Address [facility] Co de Phone Number [facility] Department [place] [address] * Tacrolimus level trough (06/03/2024 8:54 AM CDT) [facility] Tacrolimus trough 4.9 ng/mL Comment: Interpretive Data Testing performed by liquid chromatography-tandem mass spectrometry. Therapeutic concentrations vary depending on type of transplanted organ and time elapsed since transplant. Typical trough concentrations range from 5-15 ng/mL. This test was developed and its performance characteristics determined by the [facility] consistent with CLIA requirements. This test has not been cleared or approved by the [place] Food and Drug administration. Current interpretive data last reviewed 2019. Blood 06/03/2024 8:54 AM CDT 06/03/2024 9:22 AM CDT Patricia Davidson MD PhD LAB BLOOD ORDERABLES Final Result Performing Organization Address City/[facility] Co de Phone Number [facility] [place] [address] * (ABNORMAL) CBC with auto differential (06/03/2024 8:54 AM CDT) [facility] WBC 4.7 3.8 - 9.9 K/cumm Hgb 11.6(L) 11.9 - 15.5 g/dL [facility] Hct 32.6(L) 35.6 - 45.5 % [facility] Plt 121(L) 150 - 400 K/cumm [facility] MPV 11.0 9.1 - 12.3 fL [facility] RBC 3.19(L) 3.90 - 5.20 M/cumm [facility] MCV 102.2(H) 81.3 - 96.4 fL [facility] MCH 36.4(H) 27.1 - 33.3 pg [facility] MCHC 35.6 32.3 - 35.7 g/dL [facility] RDW CV 13.5 11.1 - 14.9 % [facility] RDW SD 49.6(H) 35.7 - 48.1 fL [facility] NRBC abs 0.00 0.00 - 0.01 K/cumm [facility] Blood 06/03/2024 8:54 AM CDT 06/03/2024 9:23 AM CDT us Patricia Davidson MD PhD LAB BLOOD ORDERABLES Final Result Performing Organization Address City/[facility]/ZIP Co de Phone Number [facility] Department [place] [address] * CRP (acute phase) (06/03/2024 8:54 AM CDT) [facility] CRP 6.5 <=10.0 mg/L Blood 06/03/2024 8:54 AM CDT 06/03/2024 9:25 AM CDT Pineda Barrios MD LAB BLOOD ORDE RABLES Final Result Performing Organization Address [facility] de Phone Number [facility] Department of [employer] [place] [address] * (ABNORMAL) Renal function panel (06/03/2024 8:54 AM CDT) [facility] Sodium 143 135 - 145 mmol/L Potassium, pl 4.6 3.3 - 4.9 mmol/L [facility] Chloride 110 97 - 110 mmol/L [facility] CO2 23 22 - 32 mmol/L [facility] Anion gap 10 2 - 15 mmol/L [facility] BUN 21 6 - 25 mg/dL [facility] Creatinine 1.93(H) 0.60 - 1.10 mg/dL [facility] Glucose 125 70 - 199 mg/dL [facility] Comment: Interpretive Data Fasting glucose >/= [...] 2022. Calcium 9.1 8.5 - 10.3 mg/dL [facility] Phosphorus, pl 3.5 2.3 - 4.5 mg/dL [facility] Albumin 3.5 3.5 - 5.0 g/dL [facility] Blood 06/03/2024 8:54 AM CDT 06/03/2024 9:25 AM CDT us Patricia Davidson MD PhD LAB BLOOD ORDERABLES Final Result [facility] Department [place] [address] * (ABNORMAL) eGFR (06/03/2024 2:22 AM CDT) [...] MD LAB BLOOD RICO VALDEZ Final Result [facility] Department [place] [address] * Differential, auto (06/03/2024 2:22 AM CDT) Neutrophil abs 2.5 1.5 - 6.5 K/cumm Imm gran abs 0.0 0.0 - 0.1 K/cumm [facility] Lymphocyte abs 1.2 0.8 - 3.3 K/cumm [facility] Monocyte abs 0.4 0.2 - 0.8 K/cumm [facility] Eosinophil abs 0.1 0.0 - 0.5 K/cumm [facility] Basophil abs 0.0 0.0 - 0.1 K/cumm [facility] Neutrophil pct 58.3 % [facility] Comment: Interpretive Data Percent cell count reference ranges are not reported, since discordance with absolute values may lead to misinterpretation of CBC data. Current Interpretive Data was last revised on 2017. Imm gran pct 0.5 % [facility] Comment: Interpretive Data Percent cell count reference ranges are not reported, since discordance with absolute values may lead to misinterpretation of CBC data. Current Interpretive Data was last revised on 2017. Lymphocyte pct 28.7 % [facility] Comment: Interpretive Data Percent cell count reference ranges are not reported, since discordance with absolute values may lead to misinterpretation of CBC data. Current Interpretive Data was last revised on 2017. Monocyte pct 9.2 % [facility] Comment: Interpretive Data Percent cell count reference ranges are not reported, since discordance with absolute values may lead to misinterpretation of CBC data. Current Interpretive Data was last revised on 2017. Eosinophil pct 3.1 % [facility] Comment: Interpretive Data Percent cell count reference ranges are not reported, since discordance with absolute values may lead to misinterpretation of CBC data. Current Interpretive Data was last revised on 2017. Basophil pct 0.2 % [facility] Comment: Interpretive Data Percent cell count reference ranges are not reported, since discordance with absolute values may lead to misinterpretation of CBC data. Current Interpretive Data was last revised on 2017. Blood 06/03/2024 2:22 AM CDT 06/03/2024 2:57 AM CDT Pineda Barrios MD LAB BLOOD ORDE COURTNEY Final Result [facility] [place] [address] * (ABNORMAL) Iron profile w/ IBC (06/03/2024 2:22 AM CDT) Pathologist [facility] Iron 104 35 - 145 mcg/dL TIBC 192(L) 250 - 400 mcg/dL [facility] Transferrin saturation 54(H) 20 - 50 % [facility] Blood 06/03/2024 2:22 AM CDT 06/03/2024 2:57 AM CDT Shea Babcock MD LAB BLOOD ORDERABLE S Final Result [facility] Department [place] [address] * (ABNORMAL) CBC with auto differential (06/03/2024 2:22 AM CDT) WBC 4.2 3.8 - 9.9 K/cumm Hgb 11.5(L) 11.9 - 15.5 g/dL [facility] Hct 32.9(L) 35.6 - 45.5 % [facility] Plt 120(L) 150 - 400 K/cumm [facility] MPV 11.2 9.1 - 12.3 fL [facility] RBC 3.24(L) 3.90 - 5.20 M/cumm [facility] MCV 101.5(H) 81.3 - 96.4 fL [facility] MCH 35.5(H) 27.1 - 33.3 pg [facility] MCHC 35.0 32.3 - 35.7 g/dL [facility] RDW CV 13.4 11.1 - 14.9 % [facility] RDW SD 49.9(H) 35.7 - 48.1 fL [facility] NRBC abs 0.00 0.00 - 0.01 K/cumm [facility] Blood 06/03/2024 2:22 AM CDT 06/03/2024 2:57 AM CDT Pineda Barrios MD LAB BLOOD [facility] Final Result Performing Organization Address [facility] de Phone Number [facility] of [employer] [place] [place] [address] * Tacrolimus level random (06/03/2024 2:22 AM CDT) [facility] Signature Tacrolimus random 6.3 ng/mL Comment: Interpretive Data Testing performed by liquid chromatography-tandem mass spectrometry. Therapeutic concentrations vary depending on type of transplanted organ and time elapsed since transplant. Typical trough concentrations range from 5-15 ng/mL. This test was developed and its performance characteristics determined by the [facility] consistent with CLIA requirements. This test has not been cleared or approved by the US Food and Drug administration. Current interpretive data last reviewed 2019. Blood 06/03/2024 2:22 AM CDT 06/03/2024 2:57 AM CDT Pineda Barrios MD LAB BLOOD ORDE RABVERONICA Final Result Performing Organization Address City/[facility] Co de Phone Number [facility] of [employer] [place] [address] * TSH (06/03/2024 2:22 AM CDT) [facility] Thyroid Stimulating Hormone 1.91 0.30 - 4.20 mcIUnit/mL Blood 06/03/2024 2:22 AM CDT 06/03/2024 2:57 AM CDT Shea Babcock MD LAB BLOOD ORDERABLE S Final Result [facility] [place] [address] * (ABNORMAL) Ferritin (06/03/2024 2:22 AM CDT) [facility] Ferritin 213(H) 13 - 150 ng/mL Blood 06/03/2024 2:22 AM CDT 06/03/2024 2:57 AM CDT Shea Babcock MD LAB BLOOD ORDERABLE S Final Result Performing Organization Address City/[facility]/ZIP Co de Phone Number [facility] of [employer] [place] [address] * Vitamin B12 (06/03/2024 2:22 AM CDT) [facility] Vitamin B12 749 230 - 1,250 pg/mL Blood 06/03/2024 2:22 AM CDT 06/03/2024 2:57 AM CDT Shea Babcock MD LAB BLOOD ORDERABLE S Final Result [facility] [employer] [place] [place] [address] * (ABNORMAL) Renal function panel (06/03/2024 2:22 AM CDT) [facility] Sodium 144 135 - 145 mmol/L Potassium, pl 5.0(H) 3.3 - 4.9 mmol/L [facility] Chloride 111(H) 97 - 110 mmol/L [facility] CO2 25 22 - 32 mmol/L [facility] Anion gap 8 2 - 15 mmol/L [facility] BUN 23 6 - 25 mg/dL [facility] Creatinine 1.86(H) 0.60 - 1.10 mg/dL [facility] Glucose 102 70 - 199 mg/dL [facility] Comment: Interpretive Data Fasting glucose >/= [...] 2022. Calcium 9.2 8.5 - 10.3 mg/dL [facility] Phosphorus, pl 3.1 2.3 - 4.5 mg/dL [facility] Albumin 3.8 3.5 - 5.0 g/dL [facility] Blood 06/03/2024 2:22 AM CDT 06/03/2024 2:57 AM CDT Pineda Barrios MD LAB BLOOD [place] Final Result [facility] Department [place] [address] * (ABNORMAL) eGFR (06/02/2024 8:43 AM CDT) [...] MD PhD LAB BLOOD ORDERABLES Final Result [facility] Department [place] [address] * Differential, auto (06/02/2024 8:43 AM CDT) Pathologist [facility] Neutrophil abs 2.3 1.5 - 6.5 K/cumm Imm gran abs 0.0 0.0 - 0.1 K/cumm [facility] Lymphocyte abs 1.3 0.8 - 3.3 K/cumm [facility] Monocyte abs 0.4 0.2 - 0.8 K/cumm [facility] Eosinophil abs 0.1 0.0 - 0.5 K/cumm [facility] Basophil abs 0.0 0.0 - 0.1 K/cumm [facility] Neutrophil pct 55.6 % [facility] Comment: Interpretive Data Percent cell count reference ranges are not reported, since discordance with absolute values may lead to misinterpretation of CBC data. Current Interpretive Data was last revised on 2017. Imm gran pct 0.2 % [facility] Comment: Interpretive Data Percent cell count reference ranges are not reported, since discordance with absolute values may lead to misinterpretation of CBC data. Current Interpretive Data was last revised on 2017. Lymphocyte pct 30.7 % [facility] Comment: Interpretive Data Percent cell count reference ranges are not reported, since discordance with absolute values may lead to misinterpretation of CBC data. Current Interpretive Data was last revised on 2017. Monocyte pct 10.1 % [facility] Comment: Interpretive Data Percent cell count reference ranges are not reported, since discordance with absolute values may lead to misinterpretation of CBC data. Current Interpretive Data was last revised on 2017. Eosinophil pct 3.2 % [facility] Comment: Interpretive Data Percent cell count reference ranges are not reported, since discordance with absolute values may lead to misinterpretation of CBC data. Current Interpretive Data was last revised on 2017. Basophil pct 0.2 % [facility] Comment: Interpretive Data Percent cell count reference ranges are not reported, since discordance with absolute values may lead to misinterpretation of CBC data. Current Interpretive Data was last revised on 2017. Blood 06/02/2024 8:43 AM CDT 06/02/2024 9:14 AM CDT Patricia Davidson MD PhD LAB BLOOD ORDERABLES Final Result Performing Organization Address [facility] de Phone Number [facility] Department [place] [address] * Tacrolimus level trough (06/02/2024 8:43 AM CDT) [facility] Tacrolimus trough 3.8 ng/mL Comment: Interpretive Data Testing performed by liquid chromatography-tandem mass spectrometry. Therapeutic concentrations vary depending on type of transplanted organ and time elapsed since transplant. Typical trough concentrations range from 5-15 ng/mL. This test was developed and its performance characteristics determined by the [facility] consistent with CLIA requirements. This test has not been cleared or approved by the US Food and Drug administration. Current interpretive data last reviewed 2019. Blood 06/02/2024 8:43 AM CDT 06/02/2024 9:14 AM CDT Patricia Davidson MD PhD LAB BLOOD ORDERABLES Final Result Performing Organization Address City/[facility] Co de Phone Number [facility] Department [place] [address] * (ABNORMAL) CBC with auto differential (06/02/2024 8:43 AM CDT) [facility] WBC 4.1 3.8 - 9.9 K/cumm Hgb 10.8(L) 11.9 - 15.5 g/dL [facility] Hct 30.5(L) 35.6 - 45.5 % [facility] Plt 105(L) 150 - 400 K/cumm [facility] MPV 11.6 9.1 - 12.3 fL [facility] RBC 3.03(L) 3.90 - 5.20 M/cumm [facility] MCV 100.7(H) 81.3 - 96.4 fL [facility] MCH 35.6(H) 27.1 - 33.3 pg [facility] MCHC 35.4 32.3 - 35.7 g/dL [facility] RDW CV 13.3 11.1 - 14.9 % [facility] RDW SD 48.2(H) 35.7 - 48.1 fL [facility] NRBC abs 0.00 0.00 - 0.01 K/cumm [facility] Blood 06/02/2024 8:43 AM CDT 06/02/2024 9:14 AM CDT us Patricia Davidson MD PhD LAB BLOOD ORDERABLES Final Result [facility] Department [place] [address] * (ABNORMAL) Renal function panel (06/02/2024 8:43 AM CDT) [facility] Sodium 143 135 - 145 mmol/L Potassium, pl 5.1(H) 3.3 - 4.9 mmol/L [facility] Comment:Hemolyzed; Potassium value may be falsely elevated by as much as 0.3-0.5 mmol/L. Suggest redraw and reanalysis. Chloride 111(H) 97 - 110 mmol/L [facility] CO2 26 22 - 32 mmol/L [facility] Anion gap 6 2 - 15 mmol/L [facility] BUN 22 6 - 25 mg/dL [facility] Creatinine 1.93(H) 0.60 - 1.10 mg/dL [facility] Glucose 108 70 - 199 mg/dL [facility] Comment: Interpretive Data Fasting glucose >/= [...] 2022. Calcium 8.8 8.5 - 10.3 mg/dL [facility] Phosphorus, pl 3.5 2.3 - 4.5 mg/dL [facility] Albumin 3.4(L) 3.5 - 5.0 g/dL [facility] Blood 06/02/2024 8:43 AM CDT 06/02/2024 9:14 AM CDT us Patricia Davidosn MD PhD LAB BLOOD ORDERABLES Final Result Performing Organization Address City/[facility] Phone Number [facility] Department [place] [address] * Immunoglobulin profile (06/01/2024 9:10 PM CDT) Pathologist [facility] Immunoglobulin G 882 700 - 1,600 mg/dL Immunoglobulin A 213 70 - 400 mg/dL [facility] Immunoglobulin M 92 40 - 230 mg/dL [facility] Blood 06/01/2024 9:10 PM CDT 06/01/2024 10:48 PM CDT Pineda Barrios MD LAB BLOOD ORDE COURTNEY Final Result [facility] Department [place] [address] * Differential, auto (06/01/2024 10:03 AM CDT) Neutrophil abs 3.5 1.5 - 6.5 K/cumm Imm gran abs 0.0 0.0 - 0.1 K/cumm [facility] Lymphocyte abs 1.3 0.8 - 3.3 K/cumm [facility] Monocyte abs 0.4 0.2 - 0.8 K/cumm [facility] Eosinophil abs 0.2 0.0 - 0.5 K/cumm [facility] Basophil abs 0.0 0.0 - 0.1 K/cumm [facility] Neutrophil pct 65.5 % [facility] Comment: Interpretive Data Percent cell count reference ranges are not reported, since discordance with absolute values may lead to misinterpretation of CBC data. Current Interpretive Data was last revised on 2017. Imm gran pct 0.2 % [facility] Comment: Interpretive Data Percent cell count reference ranges are not reported, since discordance with absolute values may lead to misinterpretation of CBC data. Current Interpretive Data was last revised on 2017. Lymphocyte pct 23.6 % [facility] Comment: Interpretive Data Percent cell count reference ranges are not reported, since discordance with absolute values may lead to misinterpretation of CBC data. Current Interpretive Data was last revised on 2017. Monocyte pct 7.7 % [facility] Comment: Interpretive Data Percent cell count reference ranges are not reported, since discordance with absolute values may lead to misinterpretation of CBC data. Current Interpretive Data was last revised on 2017. Eosinophil pct 2.8 % [facility] Comment: Interpretive Data Percent cell count reference ranges are not reported, since discordance with absolute values may lead to misinterpretation of CBC data. Current Interpretive Data was last revised on 2017. Basophil pct 0.2 % [facility] Comment: Interpretive Data Percent cell count reference ranges are not reported, since discordance with absolute values may lead to misinterpretation of CBC data. Current Interpretive Data was last revised on 2017. Blood 06/01/2024 10:0 3 AM CDT 06/01/2024 10:19 AM CDT Patricia Davidson MD PhD LAB BLOOD ORDERABLES Final Result Performing Organization Address [facility] de Phone Number [facility] Department [place] [address] * (ABNORMAL) CBC with auto differential (06/01/2024 10:03 AM CDT) Pathologist [facility] WBC 5.3 3.8 - 9.9 K/cumm Hgb 12.1 11.9 - 15.5 g/dL [facility] Hct 34.0(L) 35.6 - 45.5 % [facility] Plt 98(L) 150 - 400 K/cumm [facility] MPV 11.6 9.1 - 12.3 fL [facility] RBC 3.44(L) 3.90 - 5.20 M/cumm [facility] MCV 98.8(H) 81.3 - 96.4 fL [facility] MCH 35.2(H) 27.1 - 33.3 pg [facility] MCHC 35.6 32.3 - 35.7 g/dL [facility] RDW CV 12.8 11.1 - 14.9 % [facility] RDW SD 45.8 35.7 - 48.1 fL [facility] NRBC abs 0.00 0.00 - 0.01 K/cumm [facility] Blood 06/01/2024 10:0 3 AM CDT 06/01/2024 10:19 AM CDT Patricia Davidson MD PhD LAB BLOOD ORDERABLES Final Result Performing Organization Address City/[facility]/ZIP Co de Phone Number [facility] Department [place] [address] * Tacrolimus level trough (06/01/2024 9:20 AM CDT) Pathologist [facility] Tacrolimus trough 6.5 ng/mL Comment: Interpretive Data Testing performed by liquid chromatography-tandem mass spectrometry. Therapeutic concentrations vary depending on type of transplanted organ and time elapsed since transplant. Typical trough concentrations range from 5-15 ng/mL. This test was developed and its performance characteristics determined by the [facility] consistent with CLIA requirements. This test has not been cleared or approved by the US Food and Drug administration. Current interpretive data last reviewed 2019. Blood 06/01/2024 9:20 AM CDT 06/01/2024 9:53 AM CDT us Patricia Davidson MD PhD LAB BLOOD ORDERABLES Final Result [facility] Department [place] [address] * (ABNORMAL) eGFR (06/01/2024 6:17 AM CDT) [facility] eGFR 29(L) >=60 mL/min/1. 73 m2 Comment: [...] BLOOD ORDERABLES Final Result Performing Organization Address City/[facility]/ZIP Co de Phone Number [facility] Department [place] [address] * (ABNORMAL) Renal function panel (06/01/2024 6:17 AM CDT) Sodium 135 135 - 145 mmol/L Potassium, pl 4.5 3.3 - 4.9 mmol/L [facility] Chloride 103 97 - 110 mmol/L [facility] CO2 22 22 - 32 mmol/L [facility] Anion gap 10 2 - 15 mmol/L [facility] BUN 24 6 - 25 mg/dL [facility] Creatinine 2.15(H) 0.60 - 1.10 mg/dL [facility] Glucose 120 70 - 199 mg/dL [facility] Comment: Interpretive Data Fasting glucose >/= [...] 2022. Calcium 8.7 8.5 - 10.3 mg/dL [facility] Phosphorus, pl 2.8 2.3 - 4.5 mg/dL [facility] Albumin 3.6 3.5 - 5.0 g/dL [facility] Blood 06/01/2024 6:17 AM CDT 06/01/2024 6:52 AM CDT us Patricia Davidson MD PhD LAB BLOOD ORDERABLES Final Result Performing Organization Address City/[facility]/ZIP Co de Phone Number [facility] Department [place] [address] * TRANSTHORACIC ECHO (TTE) COMPLETE W DOPPLER/CF WO CONTRAST (05/31/2024 2:50 PM CDT) Anatomical Region Laterality Modality Ultrasound 05/31/2024 2:12 PM CDT Narrative 05/31/2024 3:36 PM CDT [facility] [place] [address] Transthoracic Echocardiographic Report Patient Name: MISHA BROWNE : 1980 (43y 7m) Gender: F Study Date: 05/31/2024 02:12:33 PM Ht(Inch): 63 Wt(Lb): 184.97 BSA: 1.93 Grades 1 Thru 6 Home Teacher: Elisabeth Em RDCS Location: [id number] Order Provider: PINEDA HINOJOSA Heart Rate: 61 [...] trileaflet aortic valve. Mild aortic valve regurgitation (ORN=432 ms). The mean transaortic gradient is 4 [...] LA Length 4C 6.78 cm AI Decel [place] 2.15 m/s2 LA Length 2C 6.66 cm [...] Procedure Note Stalin Krishna MD - 05/31/2024 [facility] [place] [address] Transthoracic Echocardiographic Report Patient Name: MISHA BROWNE : 1980 (43y 7m) Gender: F Study Date: 05/31/2024 02:12:33 PM Ht(Inch): 63 Wt(Lb): 184.97 BSA: 1.93 Grades 1 Thru 6 Home Teacher: Elisabeth Em RDCS Location: [id number] Order Provider:PINEDA HINOJOSA Heart Rate: 61 BMI: [...] Normal trileaflet aortic valve. Mild aortic valve regurgitation(GVN=793 ms). The mean transaortic gradient is 4 [...] [ -25.0 - -18.0 ] AI Decel [id number] sec LA Length 4C 6.78 cm AI Decel Slope2.15 m/s2 LA Length 2C 6.66 cm AI FRS451.76 msec LA Volume BP 83.77 ml MV [...] [ 1.71 - 5.00 ] MV Decel Bnbp993.34 msec [ 104.00 - 258.00 ] RA [...] * (ABNORMAL) eGFR (05/31/2024 4:55 AM CDT) Pathologist [facility] eGFR 20(L) >=60 mL/min/1. 73 m2 Comment: [...] MD PhD LAB BLOOD ORDERABLES Final Result [facility] Department of Laboratories [place], [place] [id number] * Differential, auto (05/31/2024 4:55 AM CDT) Pathologist [facility] Neutrophil abs 4.9 1.5 - 6.5 K/cumm Imm gran abs 0.0 0.0 - 0.1 K/cumm [facility] Lymphocyte abs 1.4 0.8 - 3.3 K/cumm [facility] Monocyte abs 0.6 0.2 - 0.8 K/cumm [facility] Eosinophil abs 0.1 0.0 - 0.5 K/cumm [facility] Basophil abs 0.0 0.0 - 0.1 K/cumm [facility] Neutrophil pct 69.8 % [facility] Comment: Interpretive Data Percent cell count reference ranges are not reported, since discordance with absolute values may lead to misinterpretation of CBC data. Current Interpretive Data was last revised on 2017. Imm gran pct 0.6 % [facility] Comment: Interpretive Data Percent cell count reference ranges are not reported, since discordance with absolute values may lead to misinterpretation of CBC data. Current Interpretive Data was last revised on 2017. Lymphocyte pct 19.7 % [facility] Comment: Interpretive Data Percent cell count reference ranges are not reported, since discordance with absolute values may lead to misinterpretation of CBC data. Current Interpretive Data was last revised on 2017. Monocyte pct 8.0 % [facility] Comment: Interpretive Data Percent cell count reference ranges are not reported, since discordance with absolute values may lead to misinterpretation of CBC data. Current Interpretive Data was last revised on 2017. Eosinophil pct 1.9 % [facility] Comment: Interpretive Data Percent cell count reference ranges are not reported, since discordance with absolute values may lead to misinterpretation of CBC data. Current Interpretive Data was last revised on 2017. Basophil pct 0.0 % [facility] Comment: Interpretive Data Percent cell count reference ranges are not reported, since discordance with absolute values may lead to misinterpretation of CBC data. Current Interpretive Data was last revised on 2017. Blood 05/31/2024 4:55 AM CDT 05/31/2024 5:49 AM CDT us Patricia Davidson MD PhD LAB BLOOD ORDERABLES Final Result [facility] Department [place] [address] * Tacrolimus level trough (05/31/2024 4:55 AM CDT) [facility] Tacrolimus trough 9.2 ng/mL Comment: Interpretive Data Testing performed by liquid chromatography-tandem mass spectrometry. Therapeutic concentrations vary depending on type of transplanted organ and time elapsed since transplant. Typical trough concentrations range from 5-15 ng/mL. This test was developed and its performance characteristics determined by the [facility] consistent with CLIA requirements. This test has not been cleared or approved by the US Food and Drug administration. Current interpretive data last reviewed 2019. Blood 05/31/2024 4:55 AM CDT 05/31/2024 5:49 AM CDT us Patricia Davidson MD PhD LAB BLOOD ORDERABLES Final Result [facility] Department [place] [address] * (ABNORMAL) CBC with auto differential (05/31/2024 4:55 AM CDT) [facility] WBC 7.0 3.8 - 9.9 K/cumm Hgb 11.2(L) 11.9 - 15.5 g/dL [facility] Hct 31.4(L) 35.6 - 45.5 % [facility] Plt 102(L) 150 - 400 K/cumm [facility] MPV 10.9 9.1 - 12.3 fL [facility] RBC 3.15(L) 3.90 - 5.20 M/cumm [facility] MCV 99.7(H) 81.3 - 96.4 fL [facility] MCH 35.6(H) 27.1 - 33.3 pg [facility] MCHC 35.7 32.3 - 35.7 g/dL [facility] RDW CV 12.9 11.1 - 14.9 % [facility] RDW SD 46.0 35.7 - 48.1 fL [facility] NRBC abs 0.00 0.00 - 0.01 K/cumm [facility] Blood 05/31/2024 4:55 AM CDT 05/31/2024 5:49 AM CDT us Patricia Davidson MD PhD LAB BLOOD ORDERABLES Final Result [facility] Department [place] [address] * (ABNORMAL) Renal function panel (05/31/2024 4:55 AM CDT) Pathologist [facility] Sodium 136 135 - 145 mmol/L Potassium, pl 4.6 3.3 - 4.9 mmol/L [facility] Chloride 105 97 - 110 mmol/L [facility] CO2 23 22 - 32 mmol/L [facility] Anion gap 8 2 - 15 mmol/L [facility] BUN 30(H) 6 - 25 mg/dL [facility] Creatinine 2.90(H) 0.60 - 1.10 mg/dL [facility] Glucose 119 70 - 199 mg/dL [facility] Comment: Interpretive Data Fasting glucose >/= [...] 2022. Calcium 8.4(L) 8.5 - 10.3 mg/dL [facility] Phosphorus, pl 3.2 2.3 - 4.5 mg/dL [facility] Albumin 3.6 3.5 - 5.0 g/dL [facility] Blood 05/31/2024 4:55 AM CDT 05/31/2024 5:48 AM CDT us Patricia Davidson MD PhD LAB BLOOD ORDERABLES Final Result [facility] One [facility] [place] [address] * Sodium, urine, random (05/30/2024 5:23 PM CDT) Sodium, ur <20 mmol/L Comment: Interpretive Data No reference range established. Current interpretive data was last revised 2018. Urine 05/30/2024 5:23 PM CDT 05/30/2024 5:59 PM CDT Pineda Barrios MD LAB URINE ORDE RABLES Final Result Performing Organization Address City/[facility]/ZIP Co de Phone Number [facility] One [facility] [place] [address] * Creatinine, urine, random (05/30/2024 5:23 PM CDT) Creatinine Ur 121.1 mg/dL Comment: Interpretive Data No reference range established. Current interpretive data was last revised 2018. Urine 05/30/2024 5:23 PM CDT 05/30/2024 5:59 PM CDT Pineda Barrios MD LAB URINE ORDE RABLES Final Result Performing Organization Address City/[facility] Co de Phone Number [facility] [place] [address] * BK virus PCR quantitative Blood (05/30/2024 4:44 AM CDT) BKV DNA result, pl Not Detected [facility] Comment: The quantifiable range of this assay is 21.5 IU/mL to 100,000,000 IU/mL (1.33 log IU/mL to 8.00 log IU/mL). Testing was performed by the GASTON 6800 BKV Quantatitive Test version 2.0 ([employer] Testing performed at [facility] Current Interpretive Data was last revised on 2021. Blood 05/30/2024 4:44 AM CDT 05/30/2024 5:55 AM CDT Result [facility] Patricia Davidson MD PhD LAB MICROBIOLOGY - GENERAL ORDERABLES Final Result Performing Organization Address City/[facility] Co de Phone Number [facility] [employer] [place] [place] [address] [facility] * Collection Task for HLA Antibody Screen (05/30/2024 4:44 AM CDT) Pathologist [facility] HLA Antibody Screen By Single Antigen Received Blood 05/30/2024 4:44 AM CDT 05/30/2024 9:01 AM CDT Result [facility] Patricia Davidson MD PhD LAB BLOOD ORDERABLES Final Result Performing Organization Address [facility] de Phone Number [facility] [employer] [place] [place] [address] * Cytomegalovirus (CMV) DNA PCR, quantitative Blood (05/30/2024 4:44 AM CDT) Pathologist [facility] CMV DNA Not Detected [facility] Comment: Interpretive Data: The quantifiable range of this assay is 34 IUnits/mL to 10,000,000 IUnits/mL (1.53 log IUnits/mL to 7.0 log IUnits/mL). Testing was performed by the GASTON 6800 CMV Test ([employer] Testing performed at [facility]. Current interpretive data was last revised on 2020. Blood 05/30/2024 4:44 AM CDT 05/30/2024 5:55 AM CDT Result [facility] aPtricia Davidson MD PhD LAB MICROBIOLOGY - GENERAL ORDERABLES Final Result Performing Organization Address [facility] Co de Phone Number [facility] [employer] [place] [place] [address] [facility] * (ABNORMAL) eGFR (05/30/2024 4:44 AM CDT) [facility] eGFR 21(L) >=60 mL/min/1. 73 m2 Comment: [...] MD PhD LAB BLOOD ORDERABLES Final Result [facility] Department [place] [address] * Differential, auto (05/30/2024 4:44 AM CDT) [facility] Neutrophil abs 5.0 1.5 - 6.5 K/cumm Imm gran abs 0.0 0.0 - 0.1 K/cumm [facility] Lymphocyte abs 1.7 0.8 - 3.3 K/cumm [facility] Monocyte abs 0.5 0.2 - 0.8 K/cumm [facility] Eosinophil abs 0.1 0.0 - 0.5 K/cumm [facility] Basophil abs 0.0 0.0 - 0.1 K/cumm [facility] Neutrophil pct 68.2 % [facility] Comment: Interpretive Data Percent cell count reference ranges are not reported, since discordance with absolute values may lead to misinterpretation of CBC data. Current Interpretive Data was last revised on 2017. Imm gran pct 0.5 % [facility] Comment: Interpretive Data Percent cell count reference ranges are not reported, since discordance with absolute values may lead to misinterpretation of CBC data. Current Interpretive Data was last revised on 2017. Lymphocyte pct 22.6 % [facility] Comment: Interpretive Data Percent cell count reference ranges are not reported, since discordance with absolute values may lead to misinterpretation of CBC data. Current Interpretive Data was last revised on 2017. Monocyte pct 6.8 % [facility] Comment: Interpretive Data Percent cell count reference ranges are not reported, since discordance with absolute values may lead to misinterpretation of CBC data. Current Interpretive Data was last revised on 2017. Eosinophil pct 1.8 % [facility] Comment: Interpretive Data Percent cell count reference ranges are not reported, since discordance with absolute values may lead to misinterpretation of CBC data. Current Interpretive Data was last revised on 2017. Basophil pct 0.1 % [facility] Comment: Interpretive Data Percent cell count reference ranges are not reported, since discordance with absolute values may lead to misinterpretation of CBC data. Current Interpretive Data was last revised on 2017. Blood 05/30/2024 4:44 AM CDT 05/30/2024 5:30 AM CDT us Patricia Davidson MD PhD LAB BLOOD ORDERABLES Final Result [facility] Department [place] [address] * Tacrolimus level trough (05/30/2024 4:44 AM CDT) Tacrolimus trough 16.5 ng/mL Comment: Interpretive Data Testing performed by liquid chromatography-tandem mass spectrometry. Therapeutic concentrations vary depending on type of transplanted organ and time elapsed since transplant. Typical trough concentrations range from 5-15 ng/mL. This test was developed and its performance characteristics determined by the [facility] consistent with CLIA requirements. This test has not been cleared or approved by the US Food and Drug administration. Current interpretive data last reviewed 2019. Blood 05/30/2024 4:44 AM CDT 05/30/2024 5:30 AM CDT Patricia Davidson MD PhD LAB BLOOD ORDERABLES Final Result Performing Organization Address City/[facility]/ZIP Co de Phone Number [facility] Department of [employer] [place] [place] [address] * (ABNORMAL) CBC with auto differential (05/30/2024 4:44 AM CDT) Pathologist [facility] WBC 7.4 3.8 - 9.9 K/cumm Hgb 12.0 11.9 - 15.5 g/dL [facility] Hct 33.9(L) 35.6 - 45.5 % [facility] Plt 130(L) 150 - 400 K/cumm [facility] MPV 10.8 9.1 - 12.3 fL [facility] RBC 3.40(L) 3.90 - 5.20 M/cumm [facility] MCV 99.7(H) 81.3 - 96.4 fL [facility] MCH 35.3(H) 27.1 - 33.3 pg [facility] MCHC 35.4 32.3 - 35.7 g/dL [facility] RDW CV 13.0 11.1 - 14.9 % [facility] RDW SD 47.4 35.7 - 48.1 fL [facility] NRBC abs 0.00 0.00 - 0.01 K/cumm [facility] Blood 05/30/2024 4:44 AM CDT 05/30/2024 5:30 AM CDT Patricia Davidson MD PhD LAB BLOOD ORDERABLES Final Result Performing Organization Address City/[facility]/ZIP Co de Phone Number [facility] Department [place] [address] * (ABNORMAL) Renal function panel (05/30/2024 4:44 AM CDT) [facility] Sodium 142 135 - 145 mmol/L Potassium, pl 4.2 3.3 - 4.9 mmol/L [facility] Chloride 108 97 - 110 mmol/L [facility] CO2 25 22 - 32 mmol/L [facility] Anion gap 9 2 - 15 mmol/L [facility] BUN 23 6 - 25 mg/dL [facility] Creatinine 2.76(H) 0.60 - 1.10 mg/dL [facility] Glucose 123 70 - 199 mg/dL [facility] Comment: Interpretive Data Fasting glucose >/= [...] 2022. Calcium 9.1 8.5 - 10.3 mg/dL [facility] Phosphorus, pl 3.6 2.3 - 4.5 mg/dL [facility] Albumin 3.8 3.5 - 5.0 g/dL [facility] Blood 05/30/2024 4:44 AM CDT 05/30/2024 5:31 AM CDT us Patricia Davidson MD PhD LAB BLOOD ORDERABLES Final Result [facility] Department [place] [address] * HLA Donor Specific Antibody Report (05/30/2024 4:42 AM CDT) us Patricia Davidson MD PhD LAB BLOOD [...] AM CDT) Ventricular Rate EKG/Min [address] [facility] Atrial Rate 75 BPM [facility] AK-Interval (MSEC) [address] [facility] QRS-Interval (MSEC) [address] [facility] QT-Interval (MSEC) [address] [facility] QTc [address] [facility] P [place] [address] [facility] R [place] -[address] [facility] T [place] [address] [facility] Diagnosis Normal sinus rhythm Poor r wave progression associated with abnormal lead placement, obesity, pulmonary disease, anterior infarction. Prolonged QT Abnormal ECG When compared with ECG of 20-APR-2020 11:02, QRS voltage has increased Confirmed by BRODIE LEIGH M.D ([id number]) on 05/30/2024 12:29:55 PM [facility] 05/30/2024 1:10 AM CDT 05/30/2024 12:29 PM CDT Patricia Davidson MD PhD ECG ORDERABLES Final Resul t [facility] [employer] [facility] * US Renal Transplant W Dopplers [...] Ziyad Purdy M.D. us Jessee Mandel MD IM US PROCEDURES Aniya l Result * Influenza A/B, RSV, and COVID-19 PCR Nasopharyngeal (05/29/2024 4:10 PM CDT) [facility] COVID-19 RNA Negative Negative [facility] Influenza A RNA Negative Negative [facility] Influenza B RNA Negative Negative [facility] RSV RNA Negative Negative [facility] Comment: Interpretive data: Testing performed by [facility] ([phone]). This test is performed using the [employer] Xpert Xpress CoV-2/Flu/RSV plus assay. This is a multiplex, real-time reverse transcriptase PCR assay intended for the qualitative detection of nucleic acid from SARS-CoV-2, influenza A, influenza B, and respiratory syncytial virus. This assay has been cleared by the [place] Food and Drug administration. The performance characteristics have been verified by the [facility]. Results must be considered in the clinical context, and a negative result does not rule out infection. Interpretive Data last revised 2023 Nasopharyngeal 05/29/2024 4: 10 PM CDT 05/29/2024 5:03 PM CDT Narrative [facility] - 05/29/2024 5:51 PM CDT Is the Patient experiencing symptoms consistent with COVID?->Unknown us Mona Barrios MD LAB MICROBIOLOGY - GEN ERAL ORDERABLES Final Result [facility] Department [place] [address] [facility] * Respiratory pathogen panel Nasopharyngeal (05/29/2024 4:10 PM CDT) Pathologist [facility] Influenza A RNA Not Detected Not Detected Influenza B RNA Not Detected Not Detected [facility] RSV RNA Not Detected Not Detected [facility] COVID-19 RNA Not Detected Not Detected [facility] Coronavirus 229E RNA Not Detected Not Detected [facility] Coronavirus HKU1 RNA Not Detected Not Detected [facility] Coronavirus NL63 RNA Not Detected Not Detected [facility] Coronavirus OC43 RNA Not Detected Not Detected [facility] Adenovirus DNA Not Detected Not Detected [facility] Metapneumovirus RNA Not Detected Not Detected [facility] Rhinovirus/Enterov irus RNA Not Detected Not Detected [facility] Parainfluenza 1 RNA Not Detected Not Detected [facility] Parainfluenza 2 RNA Not Detected Not Detected [facility] Parainfluenza 3 RNA Not Detected Not Detected [facility] Parainfluenza 4 RNA Not Detected Not Detected [facility] B. pertussis DNA Not Detected Not Detected [facility] B. parapertussis DNA Not Detected Not Detected [facility] C. pneumoniae DNA Not Detected Not Detected [facility] M. pneumoniae DNA Not Detected Not Detected [facility] Nasopharyngeal 05/29/2024 4: 10 PM CDT 05/30/2024 6:07 AM CDT Narrative [facility] - 05/30/2024 7:05 AM CDT Interpretive Data The [employer] FilmArray Respiratory Panel (RP2.1) assay is a [...] assay has FDA clearance for testing of CHARGING CRANE OPERATOR swabs. The performance of additional specimen types has been assessed by the performing laboratory. The performance characteristics of this assay have been determined by [facility] Infectious Disease Laboratory. Current interpretive data was last revised on 21. Pineda Barrios MD LAB MICROBIOLO GY - GENERAL ORDERABLES Final Result [facility] Department [place] [address] * Urinalysis reflex to microscopic (05/29/2024 3:31 PM CDT) Color, ur Yellow Yellow Clarity, ur Clear Clear [facility] Specific gravity, ur 1.013 1.003 - 1.030 [facility] pH, urine 5.5 [facility] Comment: Interpretive Data U rine pH is affected by diet, medications, systemic acid-base disturbances, and renal tubular function. pH may affect urinary stone formation. For example, urine pH below 6.0 may help reduce the tendency for calcium phosphate stones and pH greater than 6.0 may reduce the tendency for uric acid stone formation. Source: [facility] Current Interpretive Data was last revised on 2017 Protein, ur ql Trace Negative [facility] Glucose, ur ql Negative Negative [facility] Ketones, ur Negative Negative [facility] Bilirubin, ur Negative Negative [facility] Blood, ur Negative Negative [facility] Urobilinogen, ur <2.0 <2.0 mg/dL [facility] Nitrite, ur Negative Negative [facility] Leukocyte esterase, ur Negative Negative [facility] UA reflex comment Reflex conditions for microscopic UA not met. [facility] Urine 05/29/2024 3:31 PM CDT 05/29/2024 3:38 PM CDT Shruti Damon MD LAB URINE ORDERABLES Aniya l Result Performing Organization Address City/[facility] Co de Phone Number [facility] Department [place] [address] * POCT hCG, urine (05/29/2024 3:30 PM CDT) Pathologist [facility] HCG, ur, POC Negative Negative Lot Number [id number] QC Backgroud Clear Acceptable QC Control Line Acceptable Urine 05/29/2024 3:30 PM CDT Shruti Damon MD POINT OF CARE TEST ORDERA BLES Final Result * POCT lactate (05/29/2024 3:02 PM CDT) Pathologist [facility] Lactate POC i-STAT 1.9 0.7 - 2.0 mmol/L Blood 05/29/2024 3:02 PM CDT 05/29/2024 3:02 PM CDT Notinfile Unknown LAB POCT ORDERABLES - DEVICE F inal Result Performing Organization Address City/[facility] de Phone Number [facility] Department [place] [address] * (ABNORMAL) eGFR (05/29/2024 2:57 PM CDT) Pathologist [facility] eGFR 30(L) >=60 mL/min/1. 73 m2 [...] ORDERABLES Aniya l Result Performing Organization Address [facility] Co de Phone Number [facility] [place] [address] * Differential, auto (05/29/2024 2:57 PM CDT) [facility] Neutrophil abs 5.5 1.5 - 6.5 K/cumm Imm gran abs 0.0 0.0 - 0.1 K/cumm [facility] Lymphocyte abs 0.9 0.8 - 3.3 K/cumm [facility] Monocyte abs 0.4 0.2 - 0.8 K/cumm [facility] Eosinophil abs 0.1 0.0 - 0.5 K/cumm [facility] Basophil abs 0.0 0.0 - 0.1 K/cumm [facility] Neutrophil pct 79.6 % [facility] Comment: Interpretive Data Percent cell count reference ranges are not reported, since discordance with absolute values may lead to misinterpretation of CBC data. Current Interpretive Data was last revised on 2017. Imm gran pct 0.4 % [facility] Comment: Interpretive Data Percent cell count reference ranges are not reported, since discordance with absolute values may lead to misinterpretation of CBC data. Current Interpretive Data was last revised on 2017. Lymphocyte pct 13.7 % [facility] Comment: Interpretive Data Percent cell count reference ranges are not reported, since discordance with absolute values may lead to misinterpretation of CBC data. Current Interpretive Data was last revised on 2017. Monocyte pct 5.5 % [facility] Comment: Interpretive Data Percent cell count reference ranges are not reported, since discordance with absolute values may lead to misinterpretation of CBC data. Current Interpretive Data was last revised on 2017. Eosinophil pct 0.7 % [facility] Comment: Interpretive Data Percent cell count reference ranges are not reported, since discordance with absolute values may lead to misinterpretation of CBC data. Current Interpretive Data was last revised on 2017. Basophil pct 0.1 % [facility] Comment: Interpretive Data Percent cell count reference ranges are not reported, since discordance with absolute values may lead to misinterpretation of CBC data. Current Interpretive Data was last revised on 2017. Blood 05/29/2024 2:57 PM CDT 05/29/2024 3:21 PM CDT us Shruti Damon MD LAB BLOOD ORDERABLES Aniya maguire Result [facility] Department [place] [address] * (ABNORMAL) CBC with auto differential (05/29/2024 2:57 PM CDT) WBC 6.9 3.8 - 9.9 K/cumm Hgb 13.5 11.9 - 15.5 g/dL [facility] Hct 38.8 35.6 - 45.5 % [facility] Plt 129(L) 150 - 400 K/cumm [facility] MPV 10.7 9.1 - 12.3 fL [facility] RBC 3.88(L) 3.90 - 5.20 M/cumm [facility] MCV 100.0(H) 81.3 - 96.4 fL [facility] MCH 34.8(H) 27.1 - 33.3 pg [facility] MCHC 34.8 32.3 - 35.7 g/dL [facility] RDW CV 13.0 11.1 - 14.9 % [facility] RDW SD 47.6 35.7 - 48.1 fL [facility] NRBC abs 0.00 0.00 - 0.01 K/cumm [facility] Blood Venous blood specimen / Unknown 05/29/2024 2:57 PM CDT 05/29/2024 3:21 PM CDT Shruti Damon MD LAB BLOOD ORDERABLES Aniya maguire Result [facility] Department [place] [address] * Tacrolimus level random (05/29/2024 2:57 PM CDT) Pathologist [facility] Tacrolimus random 20.2 ng/mL Comment: Interpretive Data Testing performed by liquid chromatography-tandem mass spectrometry. Therapeutic concentrations vary depending on type of transplanted organ and time elapsed since transplant. Typical trough concentrations range from 5-15 ng/mL. This test was developed and its performance characteristics determined by the [facility] consistent with CLIA requirements. This test has not been cleared or approved by the [place] Food and Drug administration. Current interpretive data last reviewed 2019. Blood 05/29/2024 2:57 PM CDT 05/29/2024 3:28 PM CDT Pineda Barrios MD LAB BLOOD ORDE RABLES Final Result Performing Organization Address City/[facility]/ZIP Co de Phone Number [facility] Department [place] [address] * Lipase (05/29/2024 2:57 PM CDT) Pathologist [facility] Lipase 12 10 - 99 Units/L Blood Venous blood specimen / Unknown 05/29/2024 2:57 PM CDT 05/29/2024 3:20 PM CDT Shruti Damon MD LAB BLOOD ORDERABLES Aniya l Result Performing Organization Address [facility] Co de Phone Number [facility] Department [place] [address] * (ABNORMAL) Comprehensive metabolic panel (05/29/2024 2:57 PM CDT) [facility] Sodium 137 135 - 145 mmol/L Potassium, pl 4.6 3.3 - 4.9 mmol/L [facility] Chloride 107 97 - 110 mmol/L [facility] CO2 18(L) 22 - 32 mmol/L [facility] Anion gap 12 2 - 15 mmol/L [facility] BUN 22 6 - 25 mg/dL [facility] Creatinine 2.10(H) 0.60 - 1.10 mg/dL [facility] Glucose 185 70 - 199 mg/dL [facility] Comment: Interpretive Data Fasting glucose >/= [...] 2022. Calcium 9.9 8.5 - 10.3 mg/dL [facility] Bilirubin, total 0.8 0.1 - 1.2 mg/dL [facility] Protein, pl 7.6 6.5 - 8.5 g/dL [facility] Albumin 4.0 3.5 - 5.0 g/dL [facility] Alk phos 372(H) 40 - 130 Units/L [facility] ALT 22 7 - 45 Units/L [facility] AST 28 10 - 45 Units/L [facility] Blood 05/29/2024 2:57 PM CDT 05/29/2024 3:20 PM CDT us Shruti Damon MD LAB BLOOD ORDERABLES Aniya l Result Performing Organization Address City/[facility]/ZIP Co de Phone Number [facility] [employer] [place] [address] * Hepatitis panel, acute (04/16/2020 6:35 AM PATTERN VAULT CLERK) Hep A IgM Nonreactive Nonreactive [facility] Comment: Interpretive Data: If Hep A IgM Ab is reported as Equivocal, a new sample should be drawn in two weeks for testing. Current interpretive data was last revised on 19. Hep B core IgM Nonreactive Nonreactive [facility] Comment: Interpretive Data If HepB Core IgM Ab is reported as Equivocal, a new sample should be drawn in two weeks for testing. Current interpretive data was last revised on 19. Hep C Ab Nonreactive Nonreactive [facility] Comment:Antibodies to HCV no t detected. Does NOT exclude the possibility of recent exposure to HCV. HepBsAg Nonreactive Nonreactive [facility] Blood specimen (specimen) 04/16/2020 6:35 AM PATTERN VAULT CLERK 04/16/2020 7:34 AM PATTERN VAULT CLERK us Jacob Gates MD LAB MICROBIOLOGY - GENER AL ORDERABLES Final Result Performing Organization Address City/[facility]/ZIP Co de Phone Number [facility] [employer] [place], [place] [id number] from Last 3 Months or Most Recently Relevant to Health Maintenance Insurance [employer] OPEN ACCESS [employer] [facility] [employer] OPEN ACCESS AETNA [facility] EXCHANGE AETNA [facility] EXCHANGE Advance Directives For more information, please contact: [phone] * Full Code (Latest Code Status on File) Date Activated Date Inactivated Comments 05/29/2024 10:30 PM 06/13/2024 7:10 PM * Full Code Date Activated Date Inactivated Comments 04/16/2020 1:16 AM 04/23/2020 6:51 PM * Full Code Date Activated Date Inactivated Comments 08/14/2019 3:14 PM 08/14/2019 9:26 PM * Full Code Date Activated Date Inactivated Comments 07/25/2019 6:15 AM 07/25/2019 11:51 PM Care Teams Certified Adaptive Physical Educator Relationship Specialty Start Date End Date Lyly Fiore NP [address] [place] [address] PCP - General Nurse Practitioner 05/29/24 Beatriz Lee MD [address] [place] [address] Referring Physician Gastroenterology 07/25/19 Taylor Kitchen, utility worker film processingPan Greaser 05/29/24
--- OUTSIDE RECORDS SUMMARY | 2024-07-24 14:56 | XMS_ITS | Continuity of Care Document ---
Author Organization [facility] Address [address] [place] [address] Phone Care Team Providers Care Clerical Car Checker Name Role Phone Santana Timmons MD Unavailable Unavailable Procedures Procedure Date Subsequent Hospital Care Initial Inpatient Consult Advance Directives Directive Yes / No Effective Date File Name No Information Encounters Encounter Description Practice Location Reason(s) For Visit Diagnoses Date Provider Providers Copied on Encounter Subsequent Hospital Care [facility], [address] [place] [address], [id number], tel:[phone] [facility] No Information 1 Shanelle Dillon. [address] [place] [address], [id number], [place]. tel:[phone] Referring Provider: Hermes Ramirez , [address] [place] [address], [id number]. tel:[phone] Initial Inpatient Consult [facility], [address] [place] [address], [id number], tel:[phone] [facility] No Information Shanelle Dillon. [address] [place] [address], [id number], . tel:[phone] Referring Provider: Hermes Ramirez [address], [address]. tel:[phone] Family History Family Member Type Diagnosis Age At Onset No Information Payers Payer name Insurance type Covered constitution party ID Authoriza tiyoan(s) [facility] [id number] Social History Type Description Quantity Date Captured Comments Sex Female Smoking Status No Information Chief Complaint And Reason For Visit No Information History Of Present Illness Encounter Date Complaint History Of Prese nt Illness No Information Instructions Date Instruction Additional Infor mation No Information Assessments Type Assessment Date No Information
--- OUTSIDE RECORDS SUMMARY | 2024-07-24 14:56 | XMS_ITS | Encounter Summary ---
Author Organization [facility] Address [address] [place] [address] Care Team Providers Care Commercial Specialist Name Role Phone Ashley ZUNIGA MD, Hermes Perez Primary Care Provid er Lyly Fiore NP Primary Care Provider [phone] Encounter Details Date Type Department Care Team (Late st Contact Info) Description 08/22/2018 Abstract [facility] [address] [place] [id number] Social History Tobacco Use Types Packs/Day Years Used Date Smoking Tobacco: Every Day Cigarettes 0.5 15 Smokeless Tobacco: Never Alcohol Use Standard Drinks/Week Comments No 0 (1 standard drink = 0.6 oz pur e alcohol) Comments No Sex and Gender Information Value Date Recorded Sex Assigned at Female 04/05/2024 4:26 PM FOURDRINIER TENDER Legal Sex Female 9:15 PM FOURDRINIER TENDER Gender Identity Not on file Sexual Orientation Not on file documented as of this encounter Plan of Treatment Not on file documented as of this encounter Visit Diagnoses Not on filedocumented in this encounter Additional Health Concerns Infection Onset Date Last Indicated Resolved Time COVID-19 Rule Out 03/30/2020 03/30/2020 03/30/2020 9:29 PM FOURDRINIER TENDER COVID-19 Rule Out 03/30/2020 03/30/2020 03/31/2020 12:28 PM FOURDRINIER TENDER COVID-19 Rule Out 02/16/2024 02/16/2024 02/16/2024 9:16 PM FOURDRINIER TENDER Rhinovirus 02/16/2024 02/16/2024 02/26/2024 12:3 2 AM FOURDRINIER TENDER documented as of this encounter Care Teams Commercial Specialist Relationship Specialty Start Date End Date Hermes Ramirez III, MD [address] [facility] [address] [place] [address] PCP - General FAMILY PRACTICE 06/20/17 04/13/24 Lyly Fiore NP [address] [place] [address] PCP - General NURSE PRACTITIONER 04/14/24 documented as of this encounter
--- OUTSIDE RECORDS SUMMARY | 2024-07-24 14:56 | XMS_ITS | Encounter Summary ---
Author Organization [facility] Address [address] [place] [address] Care Team Providers Care Membership Sales Representative Name Role Phone Ashley ZUNIGA MD, Hermes Perez Primary Care Provid er Lyly Fiore NP Primary Care Provider [phone] Encounter Details Date Type Department Care Team ([facility] st Contact Info) Description 06/03/2017 Abstract [facility] CON[facility] [address] [place] [address] , Generic ConversionMD Social History Tobacco Use Types Packs/Day Years Used Date Smoking Tobacco: Never Assessed Comments Unknown Sex and Gender Information Value Date Recorded Sex Assigned at Female 04/05/2024 4:26 PM CROP DUSTER Legal Sex Female 9:15 PM CROP DUSTER Gender Identity Not on file Sexual Orientation Not on file documented as of this encounter Plan of Treatment Not on file documented as of this encounter Visit Diagnoses Not on filedocumented in this encounter Additional Health Concerns Infection Onset Date Last Indicated Resolved Time COVID-19 Rule Out 03/30/2020 03/30/2020 03/30/2020 9:29 PM CROP DUSTER COVID-19 Rule Out 03/30/2020 03/30/2020 03/31/2020 12:28 PM CROP DUSTER COVID-19 Rule Out 02/16/2024 02/16/2024 02/16/2024 9:16 PM CROP DUSTER Rhinovirus 02/16/2024 02/16/2024 02/26/2024 12:3 2 AM CROP DUSTER documented as of this encounter Care Teams Membership Sales Representative Relationship Specialty Start Date End Date Hermes Ramirez III, MD [address] [address] PCP - General FAMILY PRACTICE 06/20/17 04/13/24 Lyly Fiore NP [address] [place] [address] PCP - General NURSE PRACTITIONER 04/14/24 documented as of this encounter
--- OUTSIDE RECORDS SUMMARY | 2024-07-24 15:15 | XMS_ITS | Encounter Summary ---
Author Organization [facility] Address [address] [place] [address] Phone Care Team Providers Care Set Rider Name Role Phone Beatriz Lee MD Unavailable [phone] Lyly Fiore CHIEF OF SAFETY AND PROTECTION Primary Care Provider Taylor Kitchen RN Unavailable Unav ailable Reason for Referral * Consultation (Routine) - Pending Review Specialty Diagnoses / Procedures Referred By Contac t Referred To Contact Pain Management Diagnoses Lumbar spine pain Adolescent idiopathic scoliosis of thoracic region Chronic bilateral low back pain without sciatica Jessee Morton MD [address] [facility] [place] [address] Phone: tel: fax: Faby Puckett MD [address] [place] [address] Phone: tel: fax: Referral ID Status Reason Start Date Expiration Date Visits Requested Visits Authorized [id number] Pending Review Specialty Services Required 07/24/2024 08/23/2025 1 1 Question Answer Please select the performing region: [facility] [[id number]] To provider: FABY PUCKETT [[id number]] # of visits: 1 Comments Evaluate for potenital intracept procedure for LBP vs other * Diagnostic Imaging (Routine) - Closed Specialty Diagnoses / Procedures Referred By Contac t Referred To Contact Diagnoses Lumbar spine pain Adolescent idiopathic scoliosis of thoracic region Procedures XR Scoliosis 6 or More Views Jessee Morton MD [address] [facility] [place] [address] Phone: tel: fax: [facility] Referral ID Status Reason Start Date Expiration Date Visits Re quested Visits Authorized [id number] Closed 07/16/2024 08/15/2025 1 1 Reason for Visit * Reason Comments Pain * Consultation (Routine) - Closed Specialty Diagnoses / Procedures Referred By Contac t Referred To Contact Orthopedic Surgery Diagnoses Chronic bilateral low back pain without sciatica Patrick Hernandez MD [address] [facility] [address] [place] [address] Phone: tel: fax: [facility] (All Locations) Referral ID Status Reason Start Date Expiration Date V isits Requested Visits Authorized [id number] Closed Specialty Services Required 06/13/2024 07/13/2025 1 1 Encounter Details Date Type Department Care Team (Late st Contact Info) Description 07/24/2024 10:00 AM CDT Office Visit [facility] Orthopaedic Surgery [address] [facility] 6th [place] [address] [place] [address] Jessee Morton MD [address] [facility] [place] [address] Lumbar spine pain (Primary Dx); Adolescent idiopathic [...] on file Legal Sex Female 10:10 PM FINANCE PROFESSIONAL Gender Identity Not on file Sexual [...] 25 documented in this encounter Care Teams Set Rider Relationship Specialty Start Date End Date Lyly Fiore NP [address] [place] [address] PCP - General Nurse Practitioner 05/29/24 Beatriz Lee MD [address] [place] [address] Referring Physician Gastroenterology 07/25/19 Taylor Kitchen, diamond grinderSliver Cutter 05/29/24 documented as of this encounter
--- OUTSIDE RECORDS SUMMARY | 2024-07-24 15:15 | XMS_ITS | Encounter Summary ---
Author Organization [facility] Address [facility] [place] [address] Care Team Providers Care Fbi Sharpshooter Name Role Phone Ashley ZUNIGA MD, Hermes Perez Primary Care Provid er Lyly Fiore NP Primary Care Provider [phone] Encounter Details Date Type Department Care Team (Late st Contact Info) Description 02/22/2024 Hospital Follow-up Call [facility] Cardiovascular Care Unit [address] [place] [address] Zulma Ardon, RN Social History Tobacco Use [...] any time in the past 12 m [facility], were you homeless or living in a penitentiary (including now)? No 02/20/2024 Comments No Sex and Gender Information Value Date Recorded Sex Assigned at Female 04/05/2024 4:26 PM OPERATIONS INTELLIGENCE SUPERINTENDENT Legal Sex Female 9:15 PM OPERATIONS INTELLIGENCE SUPERINTENDENT Gender Identity Not on file Sexual [...] Assessment Author Status No 02/20/2024 4:08 AM OPERATIONS INTELLIGENCE SUPERINTENDENT Kimmy Hayes RN Active documented as of this encounter Mental Status * Because of a physical, mental, or emotional condition, do you have serious difficulty concentrating, remembering, or making decisions? Answer Entry Date Author Status No 02/20/2024 4:08 AM OPERATIONS INTELLIGENCE SUPERINTENDENT Kimmy Hayes RN Active documented in this encounter Plan of Treatment Not on file documented as of this encounter Visit Diagnoses Not on filedocumented in this encounter Additional Health Concerns Infection Onset Date Last Indicated Resolved Time Rhinovirus 02/16/2024 02/16/2024 02/26/2024 12:3 2 AM OPERATIONS INTELLIGENCE SUPERINTENDENT documented as of this encounter Care Teams Fbi Sharpshooter Relationship Specialty Start Date End Date Hermes Ramirez III, MD [address] [address] PCP - General FAMILY PRACTICE 06/20/17 04/13/24 Lyly Fiore NP [address] [place] [address] PCP - General NURSE PRACTITIONER 04/14/24 documented as of this encounter
--- OUTSIDE RECORDS SUMMARY | 2024-07-24 15:15 | XMS_ITS | Encounter Summary ---
Author Organization [facility] Healthcare Address [address] [place] [address] Care Team Providers Care Photo Stylist Name Role Phone Beatriz Lee MD Unavailable [phone] Lyly Fiore LIVESTOCK BREEDER Primary Care Provider Taylor Kitchen RN Unavailable Unav ailable Reason for Referral * Diagnostic Imaging (Routine) - Closed Specialty Diagnoses / Procedures Referred By Contac t Referred To Contact Diagnoses Lumbar spine pain Adolescent idiopathic scoliosis of thoracic region Procedures XR Scoliosis 6 or More Views Jessee Morton MD [address] [place] [address] Phone: tel: fax: [facility] Referral ID Status Reason Start Date Expiration Date Visits Re quested Visits Authorized [id number] Closed 07/16/2024 08/15/2025 1 1 Reason for Visit * Diagnostic Imaging (Routine) - Closed Specialty Diagnoses / Procedures Referred By Contac t Referred To Contact Diagnoses Lumbar spine pain Adolescent idiopathic scoliosis of thoracic region Procedures XR Scoliosis 6 or More Views Jessee Morton MD [address] [place] [address] Phone: tel: fax: [facility] Referral ID Status Reason Start Date Expiration Date Visits Re quested Visits Authorized [id number] Closed 07/16/2024 08/15/2025 1 1 Encounter Details Date Type Department Care Team (Latest Contact Info) Description 07/24/2024 9:45 AM CDT Hospital Encounter [facility] [address] [place] [address] Jessee Morton MD [address] [facility] 6A[address]6B[address]12A [place] [address] Lumbar spine pain; Adolescent idiopathic scoliosis of [...] on file Legal Sex Female 10:10 PM DIESEL MAINTENANCE TECHNICIAN Gender Identity Not on file [...] region documented in this encounter Care Teams Photo Stylist Relationship Specialty Start Date End Date Lyly Fiore NP [address] [place] [address] PCP - General Nurse Practitioner 05/29/24 Beatriz Lee MD [address] [place] [address] Referring Physician Gastroenterology 07/25/19 Taylor Kitchen, fisher reef netCollaborative Physician 05/29/24 documented as of this encounter
--- OUTSIDE RECORDS SUMMARY | 2024-07-24 15:15 | XMS_ITS | Clinical Summary ---
Author Organization [facility] Address [facility] [place] [address] Care Team Providers Care Chief Nurse Name Role Phone ChelsyLyly schaefer ELISA Primary Care Provider [phone] Allergies Active Allergy Reactions Criticality Noted Date [...] Problem Noted Date Diagnosed Date Acute CHF ([facility]) 02/20/2024 Viral infection 02/20/2024 Rectus sheath hematoma, initial encounter 2017 Cervical dysplasia 10/26/2016 History of vulvar dysplasia 10/26/2016 Gastric ulcer 10/24/2016 Pancreatitis ([facility]) 10/24/2016 Chronic kidney disease 10/24/2016 Anemia, unspecified 05/04/2012 Benign gestational thrombocytopenia ([facility]) History of cone biopsy of cervix 01/04/2012 History of liver transplant ([facility]) Acute pharyngitis 11/19/2010 Abdominal pain 11/13/2010 Aphthous ulcer 11/01/2010 Anxiety 07/21/2010 Encounters Date Type Department Care Team Description 07/02/2024 1:12 PM CDT - 07/02/2024 2:05 PM CDT Emergency [facility] Emergency [address] [place] [address] Nichelle Ray NP Headache; Back Pain Discharge Disposition: Left Against Medical Advice 07/02/2024 Travel 05/13/2024 9:37 PM RETAIL STOCK CLERK - 05/13/2024 11:39 PM RETAIL STOCK CLERK Emergency [facility] Emergency [address] [place] [address] Beronica Lopez MD Headache Recurrent Or Know [...] any time in the past 12 m [facility], were you homeless or living in a penitentiary (including now)? No 02/20/2024 Comments No Sex and Gender Information Value Date Recorded Sex Assigned at Female 04/05/2024 4:26 PM RETAIL STOCK CLERK Legal Sex Female 9:15 PM RETAIL STOCK CLERK Gender Identity Not on file [...] HEAD WO CON STAT 05/13/2024 11:06 PM RETAIL STOCK CLERK HUMAN PAPILLOMAVIRUS, HIGH-RISK TYPES Routine 06/20/2022 12:00 PM CDT CYTOPATH CERV/VAG THIN LAYER Routine 06/20/2022 7:46 AM CDT from Last 3 Months or Most Recently Relevant to Health Maintenance Results * CT HEAD WO CON (05/13/2024 11:06 PM RETAIL STOCK CLERK) Anatomical Region Laterality Modality Head Computed Tomogra phy 05/13/2024 11:0 8 PM RETAIL STOCK CLERK Impressions 05/13/2024 11:09 PM RETAIL STOCK CLERK IMPRESSION: 1. No definite CT evidence of acute intracranial abnormality, as above. Referred By: Interpreted By: Isaiah Becerra MD, 05/13/2024 11:08 PM Narrative 05/13/2024 11:09 PM RETAIL STOCK CLERK [facility] [address] [place], [place] [address] EXAMINATION: CT of the head CLINICAL HISTORY: [...] Procedure Note Isaiah Becerra MD - 05/13/2024 [place] [address] EXAMINATION: CT of the head CLINICAL HISTORY: [...] SPECIMEN CERVICAL/END OCERVICAL 06/22/2022 8:[address] [facility] HPV DNA HIGH RISK NEGATIVE NEGATIVE 06/22/2022 7:[address] [facility] Comment:SEE CYTOLOGY REPORT 06/20/2022 12:0 0 PM CDT us Sekou Scherer MD PATHOLOGY/CYTOLOGY ORDER KAREN Final Result [facility] [address] [place] [address], * Cytopath Cerv/Vag Thin Layer (06/20/2022 7:46 AM CDT) THIN PREP PAP [facility] [address] [place] [address] Department of Pathology Pathology Report CERVICAL/VAGINAL PAP SMEAR REPORT Name: MISHA JACKSON Age: 7 1980 (Age: 41) Location: [facility] Sex: F Collected Date: 06/20/2022 [facility] #: [id number] Date Received: 06/22/2022 Date Reported: 06/24/2022 Provider: [...] Cohen (ASCP) CLINICAL HISTORY Z12.4 PAP HISTORY-NILM STAVE LOG RIPSAW OPERATOR SURGICAL HISTORY-HPV+ 05/17/16 LASER/CRYOTHERAPY ThinPrep Pap Test [...] is not effective in detecting cervical adenocarcinoma. [facility] 06/20/2022 7:46 AM CDT 06/22/2022 7:46 AM CDT Comment:CERVICAL/ENDOCERVICA L us Sekou Scherer MD PATHOLOGY/CYTOLOGY ORDER KAREN Final Result [facility] [address] [place] [address], from Last 3 Months or Most Recently Relevant to Health Maintenance Insurance [employer] Advance Directives * Full Code (Latest Code Status on File) Date Activated Date Inactivated Comments 02/20/2024 1:27 AM 02/20/2024 11:44 AM * Full Code Date Activated Date Inactivated Comments 06/21/2017 12:22 AM 06/21/2017 8:16 PM Care Teams Chief Nurse Relationship Specialty Start Date End Date Lyly Fiore NP [address] [place] [address] PCP - General NURSE PRACTITIONER 04/14/24
--- OUTSIDE RECORDS SUMMARY | 2024-07-24 15:15 | XMS_ITS | Encounter Summary ---
Author Organization [facility] Healthcare Address [address] [place] [address] Care Team Providers Care Professor Of Management Name Role Phone Beatriz Lee MD Unavailable [phone] Lyly Fiore GLOST KILN OPERATOR Primary Care Provider Taylor Kitchen RN Unavailable Unav ailable Encounter Details Date Type Department Care Team (Late st Contact Info) Description 07/24/[address] [facility] Transplant Liver [address] [phone] [place] [address] Lorena Turner Social History Tobacco Use Types [...] on file Legal Sex Female 10:10 PM BRIM STRETCHING MACHINE OPERATOR Gender Identity Not on file Sexual Orientation Not on file documented as of this encounter Miscellaneous Notes * Telephone Encounter - Lorena Turner - 07/24/2024 1:35 PM CDT Signed Release of Health Information form was saved to media. This form was faxed to [facility] medical records along with 06/26/24 request for liver and kidney biopsy slides documented in this encounter Plan of Treatment Not on file documented as of this encounter Visit Diagnoses Not on filedocumented in this encounter Care Teams Professor Of Management Relationship Specialty Start Date End Date Lyly Fiore NP [address] [place] [address] PCP - General Nurse Practitioner 05/29/24 Beatriz Lee MD [address] [place] [address] Referring Physician Gastroenterology 07/25/19 Taylor Kitchen, mixer and scalerDeputy Commonwealth'S Attorney 05/29/24 documented as of this encounter
--- OUTSIDE RECORDS SUMMARY | 2024-07-24 15:15 | XMS_ITS | Clinical Summary ---
Author Organization [facility] Address [address] [place] [address] Phone Care Team Providers Care Drivers License Examiner Name Role Phone Hermes Ramirez MD Primary Care Provider [phone] Allergies Active Allergy Reactions Criticality Noted Date [...] BEDTIME 2 Active Butalbital-APAP -Caff-Cod (Fioricet/Codei ne) 88-599-52-30 MG Capsule Take by mouth. 2 Active [...] this topic Insurance MEDICAID [place] [facility] Care Teams Drivers License Examiner Relationship Specialty Start Date End Date Hermes Ramirez MD [address] [facility] [address] [place] [address] PCP - General Family Medicine 05/09/18
--- OUTSIDE RECORDS SUMMARY | 2024-07-24 15:16 | XMS_ITS | Clinical Summary ---
Author Organization [facility] Address [address] [place] [address] Care Team Providers Care Housecalls Nurse Name Role Phone Beatriz Lee MD Unavailable [phone]- [phone] Lyly Fiore NP Primary Care Provider Taylor [...] t be different from the original. Lab: [facility]. . . Pharmacy: [place], [place] Patient enrolled in [employer] assistance program [...] Transplant starting process of assuming care from [place], but in short term they recommend patient follow up with renal transplant at [facility]. - She is NOW actively enrolled in the [employer] free patient assistance program through mar 2025 - script needs to be sent to [facility] (sent). Hyperbilirubinemia 04/16/2020 Assessment & Plan (04/16/2020 5:01 AM BULK PICKER): - T. Bili of 7 (last was [...] 07/25/2019 Assessment & Plan (04/16/2020 2:25 AM BULK PICKER): See hyperbili problem. Concern for ascites Assessment [...] 12/14/2016 Assessment & Plan (04/16/2020 2:26 AM BULK PICKER): - Chronic, concerned that this may be [...] kidney transplant 04/2020. 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 We would need to call [facility] to identify a contracted center ([phone]). She lives close enough to [place] that would be the most likely city she could travel to. She also noted that she could always remarry an ex- as he has insurance that may be covered at [facility]. Appreciate note from nephrology and agree with restarting oral diuretics. Can continue tacrolimus at the current dose. MRI/MRCP completed and will review with radiology to identify if any role for PTC. Assessment & Plan (04/16/2020 2:26 AM BULK PICKER): S/p liver tranplant in 1992 for biliary [...] meds Assessment & Plan (04/16/2020 5:01 AM BULK PICKER): Unclear if progression of CKD vs acute [...] Cr of 1.8. She follows with local literary agent Dr. Mathew and thinks her baseline is 2.1. She was at 2.3 at OSH. She took some diuretics at home and was given lasix at [facility]SH ED. --UA, urine lytes --get records from her literary agent to find out baseline --random tacro level --monitor Is & Os; avoid nephrotoxins Encounters Date Type Department Care Team Description 07/24/2024 10:00 AM CDT Office Visit [facility] Orthopaedic Surgery [address] [facility] 6th [place] [address] [place] [address] Jessee Morton MD Lumbar spine pain (Primary Dx); Adolescent idiopathic scoliosis of thoracic region; Chronic bilateral low back pain without sciatica 07/24/2024 9:45 AM CDT Hospital Encounter [facility] ([facility]) [address] [place] [address] Jessee Morton MD Lumbar spine pain; Adolescent idiopathic scoliosis of thoracic region 07/24/2024 Telephone [facility] Transplant Liver [address] [facility] 340 Mailstop [facility] [place] [address] Lorena Turner 07/22/2024 Telephone [facility] and [facility] Transplant Liver [address] [facility] 340 Mailop [facility] [place] [address] Dafne Dukes RN 07/19/2024 Telephone [facility] Transplant Liver [address] [place] [address] 340 Mailop [facility] [place] [address] Karmen Garsia, ANSON After Hours; Abdominal Pain 07/17/2024 Telephone [facility] Transplant Liver [address] [facility] 340 Mailstop [facility] [place] [address] Lorena Turner 07/12/2024 5:48 PM CDT - 07/12/2024 11:59 PM CDT Hospital Encounter [facility] ([facility]) [address] [place] [address] Discharge Disposition: Discharge to home or self care 07/12/2024 5:46 PM CDT - 07/12/2024 11:59 PM CDT Hospital Encounter [facility] ([facility]) [address] [place] [address] Discharge Disposition: Discharge to home or self care 07/12/2024 5:44 PM CDT - 07/12/2024 11:59 PM CDT Hospital Encounter [facility] ([facility]) [address] [place] [address] Discharge Disposition: Discharge to home or self care 07/12/2024 5:43 PM CDT - 07/12/2024 11:59 PM CDT Hospital Encounter [facility] ([facility]) [address] [place] [address] Discharge Disposition: Discharge to home or self care 07/12/2024 Telephone [facility] Nephrology [address] [place] [address] for Advanced Medicine 5th [place] [address] [place] [address] Wilson Swift MD 07/11/2024 Telephone [facility] and [facility] Transplant Liver [address] [facility] [address] Mailstop -[address] [place] [address] Dafne Dukes RN 07/11/2024 Telephone [facility] and [facility] Transplant Liver [address] [facility] [address] Mailstop 90-29-8 [place] [address] Yulisa Welch 07/10/2024 Telephone [facility] Transplant Liver [address] [facility] [address] Mailstop 90-29-908 [place] [address] Liyah Kamara 07/09/2024 8:48 AM CDT - 07/09/2024 11:59 PM CDT Hospital Encounter [facility] ([facility]) [address] [place] [address] Discharge Disposition: Discharge to home or self care 07/09/2024 8:46 AM CDT - 07/09/2024 11:59 PM CDT Hospital Encounter [facility] ([facility]) [address] [place] [address] Discharge Disposition: Discharge to home or self care 07/09/2024 8:44 AM CDT - 07/09/2024 11:59 PM CDT Hospital Encounter [facility] ([facility]) [address] [place] [address] Discharge Disposition: Discharge to home or self care 07/09/2024 Telephone [facility] Transplant Liver [address] [facility] [address] Mailstop [id number] [place] [address] Dafne Dukes RN 07/09/2024 Telephone [facility] Transplant Liver [address] [facility] [address] [place] [address] Yulisa Welch 07/04/2024 Telephone [facility] Transplant Liver [address] [facility] [address] Mailstop [phone] [place] [address] Lorena Turner 07/04/2024 Telephone [facility] Transplant Liver [address] [facility] [address] Mailstop 90-298 [place] [address] Lorena Turner 07/03/2024 Telephone [facility] Transplant Liver [address] [facility] [address] [address] [place] [address] Dafne Dukes, ANSON 07/02/2024 Telephone [facility] Transplant Liver [address] [facility] [address] Mailstop [id number] [place] [address] Dafne Dukes, ANSON 07/02/2024 Telephone [facility] Transplant Liver [address] [facility] [address] Mailstop [id number] [place] [address] Dafne Dukes, ANSON 06/26/2024 9:30 AM CDT Office Visit [facility] Gasteroenterology [address] [facility] 12th [place] [address] [place] [address] Beatriz Lee MD Nicotine dependence with current use 06/26/2024 Orders Only [facility] Transplant Liver [address] [facility] [address] Mailstop [phone] [place] [address] Dafne Dukes RN Status post liver transplant (HCC) (Primary Dx); Encounter for long-term (current) use of medications 06/26/2024 Telephone [facility] Transplant Liver [address] [place] [address] 3401 Mailstop 15-89-291 [place] [address] Lorena Turner 06/26/2024 Orders Only [facility] Transplant Liver [address] [place] [address] [address] Mailstop [phone] [place] [address] Dafne Dukes RN History of liver transplant (HCC) (Primary Dx); Encounter for long-term (current) use of medications 06/26/2024 Documentation [facility] Transplant Liver [address] [place] [address] [address] Mailstop 88-99-485 [place] [address] Dafne Dukes RN 06/26/2024 Telephone [facility] Transplant Liver [address] [place] [address] 3401 Mailstop 45-94-250 [place] [address] Dafne Dukes RN 06/14/2024 [facility] Initial Eligibility Review [facility] OP CASE [facility]NAGEMENT [address] [place] [address] Shireen Griffin RN 06/13/2024 Orders Only [facility] Transplant Liver [address] [place] [address] [address] Mailstop 77-41-109 [place] [address] Dafne Dukes, ANSON Kidney transplanted (Primary Dx) 06/06/2024 Telephone [facility] Transplant Kidney [address] [facility] 3401 Mailstop 90-29-640 [place] [address] Netta Mcintosh 05/29/2024 3:11 PM CDT - 06/13/2024 3:04 PM CDT Hospital Encounter [facility] [address] [place] [address] Jessee Mandel MD Edwards, MD Pooja Felix, MD Scout Levin, MD David Santos, Patrick José MD Abdominal pain (Primary Dx); CHRISTY (acute kidney injury); Chronic generalized pain [R52, G89.29]; High risk medication use [Z79.899]; Hyperkalemia; Chronic bilateral low back pain without sciatica; 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 Discharge Disposition: Discharge to home or self care 05/09/2024 Telephone [facility] Transplant Liver [address] [facility] [address] [place], [place] [address]op -80-4 [place] [address] Liyah Kamara 05/07/2024 Telephone [facility] Transplant Liver [address] [facility] 340 Mailstop 90-37-9 [place] [address] Lorena Turner 05/07/2024 Telephone [facility] Transplant Liver [address] [facility] [address] [place], [place] [address]op -83-4 [place] [address] Lorena Turner 05/06/2024 Documentation [facility] Transplant Liver [address] [facility] 340 Mailstop 90-68-550 [place] [address] Taylor Kitchen RN 05/06/2024 Telephone [facility] Transplant Liver [address] [facility] 340 Mailstop 90-38-297 [place] [address] Lorena Turner Referral - Liver Txp from Last 3 Months Surgical History Surgery Date Site/Laterality Comments NM COLONOSCOPY FLX DX W/ROMAIN J SPEC WHEN [...] on file Legal Sex Female 10:10 PM BULK PICKER Gender Identity Not on file Sexual [...] CDT HEPATITIS PANEL, ACUTE Routine 6:35 AM BULK PICKER from Last 3 Months or Most Recently [...] Electronically signed by: Carlos Hayes D.O. Result [facility] Jessee Morton MD IMG XR PROCEDURES Final Re sult * Neuro CT Outside Reference (07/12/2024 5:48 PM CDT) Impressions [email or web address] - 07/12/2024 5:48 PM CDT These images are for Reference purposes only and have not been reviewed by [facility] Radiology. There will be no report generated by a [facility] Radiologist. Narrative [facility] - 07/12/2024 5:48 PM CDT EXAMINATION: Images For Reference Purposes Only Result [facility] Jessee Morton MD IMG CT PROCEDURES Final Re sult Performing Organization Address [facility] de Phone Number [email or web address] * Neuro CT Outside Reference (07/12/2024 5:46 PM CDT) Impressions [facility] - 07/12/2024 5:46 PM CDT These images are for Reference purposes only and have not been reviewed by [facility] Radiology. There will be no report generated by a [facility] Radiologist. Narrative [facility] - 07/12/2024 5:46 PM CDT EXAMINATION: Images For Reference Purposes Only Result [facility] Jessee Morton MD IMG CT PROCEDURES Final Re sult Performing Organization Address [facility] Co de Phone Number [email or web address] * Neuro MR Outside Reference (07/12/2024 5:44 PM CDT) Impressions [facility] - 07/12/2024 5:44 PM CDT These images are for Reference purposes only and have not been reviewed by [facility] Radiology. There will be no report generated by a [facility] Radiologist. Narrative [facility] - 07/12/2024 5:44 PM CDT EXAMINATION: Images For Reference Purposes Only Result [facility] Jessee Morton MD IMG MRI PROCEDURES Final R esult Performing Organization Address [facility] de Phone Number [email or web address] * Neuro MR Outside Reference (07/12/2024 5:43 PM CDT) Impressions RAD_STANLEY_[facility]OFF[facility] - 07/12/2024 5:43 PM CDT These images are for Reference purposes only and have not been reviewed by [facility] Radiology. There will be no report generated by a [facility] Radiologist. Narrative [facility] - 07/12/2024 5:43 PM CDT EXAMINATION: Images For Reference Purposes Only Result [facility] Jessee Morton MD [facility] MRI PROCEDURES Final R esult Performing Organization Address [facility] de Phone Number [email or web address] * XR Outside Reference (07/09/2024 8:48 AM CDT) Impressions [facility] - 07/09/2024 8:48 AM CDT These images are for Reference purposes only and have not been reviewed by [facility] Radiology. There will be no report generated by a [facility] Radiologist. Narrative [facility] - 07/09/2024 8:48 AM CDT EXAMINATION: Images For Reference Purposes Only Result [facility] Jessee Morton MD IMG XR PROCEDURES Final Re sult Performing Organization Address [facility] de Phone Number [email or web address] * XR Outside Reference (07/09/2024 8:46 AM CDT) Impressions [facility] - 07/09/2024 8:46 AM CDT These images are for Reference purposes only and have not been reviewed by [facility] Radiology. There will be no report generated by a [facility] Radiologist. Narrative [facility] - 07/09/2024 8:46 AM CDT EXAMINATION: Images For Reference Purposes Only Jessee Morton MD IMG XR PROCEDURES Final Re sult Performing Organization Address [facility] Co de Phone Number [email or web address] * XR Outside Reference (07/09/2024 8:44 AM CDT) Impressions PUNEETH - 07/09/2024 8:44 AM CDT These images are for Reference purposes only and have not been reviewed by [facility] Radiology. There will be no report generated by a [facility] Radiologist. Narrative ELLIE_KOFFIH - 07/09/2024 8:44 AM CDT EXAMINATION: Images For Reference Purposes Only us Jessee Morton MD IMG XR PROCEDURES Final Re sult Performing Organization Address [facility] de Phone Number [email or web address] * (ABNORMAL) [...] Final Result Performing Organization Address [facility]/ZIP Co de Phone Number [facility] Department [place] [address] * Differential, auto (06/13/2024 5:15 AM CDT) Neutrophil abs 3.2 1.5 - 6.5 K/cumm Imm gran abs 0.0 0.0 - 0.1 K/cumm [facility] Lymphocyte abs 0.9 0.8 - 3.3 K/cumm [facility] Monocyte abs 0.3 0.2 - 0.8 K/cumm [facility] Eosinophil abs 0.2 0.0 - 0.5 K/cumm [facility] Basophil abs 0.0 0.0 - 0.1 K/cumm [facility] Neutrophil pct 69.4 % [facility] Comment: Interpretive Data Percent cell count reference ranges are not reported, since discordance with absolute values may lead to misinterpretation of CBC data. Current Interpretive Data was last revised on 2017. Imm gran pct 0.2 % [facility] Comment: Interpretive Data Percent cell count reference ranges are not reported, since discordance with absolute values may lead to misinterpretation of CBC data. Current Interpretive Data was last revised on 2017. Lymphocyte pct 20.4 % [facility] Comment: Interpretive Data Percent cell count reference ranges are not reported, since discordance with absolute values may lead to misinterpretation of CBC data. Current Interpretive Data was last revised on 2017. Monocyte pct 5.9 % [facility] Comment: Interpretive Data Percent cell count reference ranges are not reported, since discordance with absolute values may lead to misinterpretation of CBC data. Current Interpretive Data was last revised on 2017. Eosinophil pct 3.9 % [facility] Comment: Interpretive Data Percent cell count reference ranges are not reported, since discordance with absolute values may lead to misinterpretation of CBC data. Current Interpretive Data was last revised on 2017. Basophil pct 0.2 % [facility] Comment: Interpretive Data Percent cell count reference ranges are not reported, since discordance with absolute values may lead to misinterpretation of CBC data. Current Interpretive Data was last revised on 2017. Blood 06/13/2024 5:15 AM CDT 06/13/2024 6:05 AM CDT us Martha Butterfield MD LAB BLOOD ORDERABLES F inal Result Performing Organization Address [facility] de Phone Number [facility] [place] [address] * Tacrolimus level trough (06/13/2024 5:15 AM CDT) [facility] Tacrolimus trough 7.4 ng/mL Comment: Interpretive Data Testing performed by liquid chromatography-tandem mass spectrometry. Therapeutic concentrations vary depending on type of transplanted organ and time elapsed since transplant. Typical trough concentrations range from 5-15 ng/mL. This test was developed and its performance characteristics determined by the [facility] consistent with CLIA requirements. This test has not been cleared or approved by the [place] Food and Drug administration. Current interpretive data last reviewed 2019. Blood 06/13/2024 5:15 AM CDT 06/13/2024 6:05 AM CDT Patricia Davidson MD PhD LAB BLOOD ORDERABLES Final Result Performing Organization Address [facility] de Phone Number [facility] [place] [address] * (ABNORMAL) CBC with auto differential (06/13/2024 5:15 AM CDT) [facility] WBC 4.6 3.8 - 9.9 K/cumm Hgb 11.1(L) 11.9 - 15.5 g/dL [facility] Hct 32.8(L) 35.6 - 45.5 % [facility] Plt 112(L) 150 - 400 K/cumm [facility] MPV 11.6 9.1 - 12.3 fL [facility] RBC 3.13(L) 3.90 - 5.20 M/cumm [facility] MCV 104.8(H) 81.3 - 96.4 fL [facility] MCH 35.5(H) 27.1 - 33.3 pg [facility] MCHC 33.8 32.3 - 35.7 g/dL [facility] RDW CV 14.8 11.1 - 14.9 % [facility] RDW SD 56.5(H) 35.7 - 48.1 fL [facility] NRBC abs 0.00 0.00 - 0.01 K/cumm [facility] Blood 06/13/2024 5:15 AM CDT 06/13/2024 6:05 AM CDT us Martha Butterfield MD LAB BLOOD ORDERABLES F inal Result [facility] Department [place] [address] * (ABNORMAL) Renal function panel (06/13/2024 5:15 AM CDT) Sodium 144 135 - 145 mmol/L Potassium, pl 4.9 3.3 - 4.9 mmol/L [facility] Chloride 111(H) 97 - 110 mmol/L [facility] CO2 25 22 - 32 mmol/L [facility] Anion gap 8 2 - 15 mmol/L [facility] BUN 27(H) 6 - 25 mg/dL [facility] Creatinine 2.03(H) 0.60 - 1.10 mg/dL [facility] Glucose 121 70 - 199 mg/dL [facility] Comment: Interpretive Data Fasting glucose >/= [...] Calcium 8.6 8.5 - 10.3 mg/dL [facility] Phosphorus, pl 3.9 2.3 - 4.5 mg/dL [facility] Albumin 3.6 3.5 - 5.0 g/dL [facility] Blood 06/13/2024 5:15 AM CDT 06/13/2024 6:05 AM CDT Patricia Davidson MD PhD LAB BLOOD ORDERABLES Final Result Performing Organization Address City/[facility]/ZIP Co de Phone Number [facility] [place] [address] * (ABNORMAL) eGFR (06/12/2024 5:52 AM CDT) [...] BLOOD ORDERABLES Final Result Performing Organization Address City/[facility]/ZIP Co de Phone Number [facility] [place] [address] * Tacrolimus level trough (06/12/2024 5:52 AM CDT) Pathologist [facility] Tacrolimus trough 6.2 ng/mL Comment: Interpretive Data Testing performed by liquid chromatography-tandem mass spectrometry. Therapeutic concentrations vary depending on type of transplanted organ and time elapsed since transplant. Typical trough concentrations range from 5-15 ng/mL. This test was developed and its performance characteristics determined by the [facility] consistent with CLIA requirements. This test has not been cleared or approved by the [place] Food and Drug administration. Current interpretive data last reviewed 2019. Blood 06/12/2024 5:52 AM CDT 06/12/2024 6:18 AM CDT us Patricia Davidson MD PhD LAB BLOOD ORDERABLES Final Result [facility] Department [place] [address] * (ABNORMAL) Renal function panel (06/12/2024 5:52 AM CDT) [facility] Sodium 145 135 - 145 mmol/L Potassium, pl 5.0(H) 3.3 - 4.9 mmol/L [facility] Chloride 112(H) 97 - 110 mmol/L [facility] CO2 27 22 - 32 mmol/L [facility] Anion gap 6 2 - 15 mmol/L [facility] BUN 30(H) 6 - 25 mg/dL [facility] Creatinine 2.16(H) 0.60 - 1.10 mg/dL [facility] Glucose 101 70 - 199 mg/dL [facility] Comment: Interpretive Data Fasting glucose >/= [...] Calcium 8.7 8.5 - 10.3 mg/dL [facility] Phosphorus, pl 4.3 2.3 - 4.5 mg/dL [facility] Albumin 3.4(L) 3.5 - 5.0 g/dL [facility] Blood 06/12/2024 5:52 AM CDT 06/12/2024 6:17 AM CDT Patricia Davidson MD PhD LAB BLOOD ORDERABLES Final Result [facility] Department [place] [address] * Potassium, whole blood (06/11/2024 11:29 PM CDT) Potassium, bld 4.7 3.3 - 4.9 mmol/L Blood 06/11/2024 11:2 9 PM CDT 06/11/2024 11:48 PM CDT us Patrick Hernandez MD LAB BLOOD ORDERABLES Fi nal Result Performing Organization Address [facility] Co de Phone Number [facility] [place] [address] * (ABNORMAL) eGFR (06/11/2024 5:14 AM CDT) [...] PhD LAB BLOOD ORDERABLES Final Result [facility] [place] [address] * Differential, auto (06/11/2024 5:14 AM CDT) Neutrophil abs 2.3 1.5 - 6.5 K/cumm Imm gran abs 0.0 0.0 - 0.1 K/cumm [facility] Lymphocyte abs 1.0 0.8 - 3.3 K/cumm [facility] Monocyte abs 0.3 0.2 - 0.8 K/[facility]umm [facility] Eosinophil abs 0.2 0.0 - 0.5 K/cumm [facility] Basophil abs 0.0 0.0 - 0.1 K/cumm [facility] Neutrophil pct 61.8 % [facility] Comment: Interpretive Data Percent cell count reference ranges are not reported, since discordance with absolute values may lead to misinterpretation of CBC data. Current Interpretive Data was last revised on 2017. Imm gran pct 0.5 % [facility] Comment: Interpretive Data Percent cell count reference ranges are not reported, since discordance with absolute values may lead to misinterpretation of CBC data. Current Interpretive Data was last revised on 2017. Lymphocyte pct 26.6 % [facility] Comment: Interpretive Data Percent cell count reference ranges are not reported, since discordance with absolute values may lead to misinterpretation of CBC data. Current Interpretive Data was last revised on 2017. Monocyte pct 6.6 % [facility] Comment: Interpretive Data Percent cell count reference ranges are not reported, since discordance with absolute values may lead to misinterpretation of CBC data. Current Interpretive Data was last revised on 2017. Eosinophil pct 4.2 % [facility] Comment: Interpretive Data Percent cell count reference ranges are not reported, since discordance with absolute values may lead to misinterpretation of CBC data. Current Interpretive Data was last revised on 2017. Basophil pct 0.3 % [facility] Comment: Interpretive Data Percent cell count reference ranges are not reported, since discordance with absolute values may lead to misinterpretation of CBC data. Current Interpretive Data was last revised on 2017. Blood 06/11/2024 5:14 AM CDT 06/11/2024 6:24 AM CDT Martha Butterfield MD LAB BLOOD ORDERABLES F inal Result Performing Organization Address [facility] de Phone Number [facility] [place] [address] * Tacrolimus level trough (06/11/2024 5:14 AM CDT) [facility] Tacrolimus trough 5.4 ng/mL Comment: Interpretive Data Testing performed by liquid chromatography-tandem mass spectrometry. Therapeutic concentrations vary depending on type of transplanted organ and time elapsed since transplant. Typical trough concentrations range from 5-15 ng/mL. This test was developed and its performance characteristics determined by the [facility] consistent with CLIA requirements. This test has not been cleared or approved by the [place] Food and Drug administration. Current interpretive data last reviewed 2019. Blood 06/11/2024 5:14 AM CDT 06/11/2024 5:51 AM CDT Patricia Davidson MD PhD LAB BLOOD ORDERABLES Final Result Performing Organization Address [facility] Co de Phone Number [facility] [place] [address] * (ABNORMAL) CBC with auto differential (06/11/2024 5:14 AM CDT) [facility] WBC 3.8 3.8 - 9.9 K/cumm Hgb 10.3(L) 11.9 - 15.5 g/dL [facility] Hct 30.0(L) 35.6 - 45.5 % [facility] Plt 93(L) 150 - 400 K/cumm [facility] MPV 11.5 9.1 - 12.3 fL [facility] RBC 2.82(L) 3.90 - 5.20 M/cumm [facility] MCV 106.4(H) 81.3 - 96.4 fL [facility] MCH 36.5(H) 27.1 - 33.3 pg [facility] MCHC 34.3 32.3 - 35.7 g/dL [facility] RDW CV 14.5 11.1 - 14.9 % [facility] RDW SD 55.4(H) 35.7 - 48.1 fL [facility] NRBC abs 0.00 0.00 - 0.01 K/cumm [facility] Blood 06/11/2024 5:14 AM CDT 06/11/2024 6:24 AM CDT Martha Butterfield MD LAB BLOOD ORDERABLES F inal Result [facility] Department [place] [address] * (ABNORMAL) Renal function panel (06/11/2024 5:14 AM CDT) [facility] Sodium 141 135 - 145 mmol/L Potassium, pl 4.6 3.3 - 4.9 mmol/L [facility] Chloride 109 97 - 110 mmol/L [facility] CO2 23 22 - 32 mmol/L [facility] Anion gap 9 2 - 15 mmol/L [facility] BUN 29(H) 6 - 25 mg/dL [facility] Creatinine 2.24(H) 0.60 - 1.10 mg/dL [facility] Glucose 133 70 - 199 mg/dL [facility] Comment: Interpretive Data Fasting glucose >/= [...] Calcium 8.6 8.5 - 10.3 mg/dL [facility] Phosphorus, pl 3.8 2.3 - 4.5 mg/dL [facility] Albumin 3.4(L) 3.5 - 5.0 g/dL [facility] Blood 06/11/2024 5:14 AM CDT 06/11/2024 5:51 AM CDT us Patricia Davidson MD PhD LAB BLOOD ORDERABLES Final Result [facility] [place] [address] * Potassium, whole blood (06/10/2024 10:18 PM CDT) Potassium, bld 4.7 3.3 - 4.9 mmol/L Blood 06/10/2024 10:1 8 PM CDT 06/10/2024 11:20 PM CDT us Martha Butterfield MD LAB BLOOD ORDERABLES F inal Result [facility] [place] [address] * POCT glucose (06/10/2024 1:15 PM CDT) Glucose, POC 145 70 - 199 mg/dL Blood 06/10/2024 1:15 PM CDT 06/10/2024 1:15 PM CDT Martha Butterfield MD LAB POCT ORDERABLES - DEVICE Final Result Performing Organization Address City/[facility]/ZIP Co de Phone Number [facility] [place] [address] * Potassium (06/10/2024 10:34 AM CDT) Potassium, pl 4.7 3.3 - 4.9 mmol/L Blood 06/10/2024 10:3 4 AM CDT 06/10/2024 11:28 AM CDT Martha Butterfield MD LAB BLOOD ORDERABLES F inal Result Performing Organization Address [facility] Co de Phone Number [facility] [place] [address] * (ABNORMAL) Hepatic function panel (06/10/2024 10:34 AM CDT) Bilirubin, total 0.7 0.1 - 1.2 mg/dL Bilirubin, direct 0.3 0.1 - 0.3 mg/dL [facility] Protein, pl 6.3(L) 6.5 - 8.5 g/dL [facility] Albumin 3.7 3.5 - 5.0 g/dL [facility] Alk phos 253(H) 40 - 130 Units/L [facility] ALT 23 7 - 45 Units/L [facility] AST 25 10 - 45 Units/L [facility] Blood 06/10/2024 10:3 4 AM CDT 06/10/2024 11:28 AM CDT Martha Butterfield MD LAB BLOOD ORDERABLES F inal Result Performing Organization Address [facility] Co de Phone Number [facility] [place] [address] * POCT glucose (06/10/2024 9:48 AM CDT) Glucose, POC 157 70 - 199 mg/dL Blood 06/10/2024 9:48 AM CDT 06/10/2024 9:48 AM CDT Martha Butterfield MD LAB POCT ORDERABLES - DEVICE Final Result Performing Organization Address [facility] de Phone Number [facility] [place] [address] * POCT glucose (06/10/2024 6:35 AM CDT) Pathologist [facility] Glucose, POC 137 70 - 199 mg/dL Blood 06/10/2024 6:35 AM CDT 06/10/2024 6:35 AM CDT Martha Butterfield MD LAB POCT ORDERABLES - DEVICE Final Result Performing Organization Address [facility] de Phone Number [facility] [place] [address] * (ABNORMAL) Potassium, whole blood (06/10/2024 4:17 AM CDT) [facility] Potassium, bld 5.2(H) 3.3 - 4.9 mmol/L Blood 06/10/2024 4:17 AM CDT 06/10/2024 4:24 AM CDT Lyndsey Ramos MD LAB BLOOD ORDERABLES Aniya l Result Performing Organization Address [facility] Co de Phone Number [facility] [place] [address] * (ABNORMAL) eGFR (06/10/2024 4:14 AM CDT) [facility] eGFR 30(L) >=60 mL/min/1. 73 [...] Final Result Performing Organization Address [facility] de Phone Number [facility] Department [place] [address] * Tacrolimus level trough (06/10/2024 4:14 AM CDT) [facility] Tacrolimus trough 9.6 ng/mL Comment: Interpretive Data Testing performed by liquid chromatography-tandem mass spectrometry. Therapeutic concentrations vary depending on type of transplanted organ and time elapsed since transplant. Typical trough concentrations range from 5-15 ng/mL. This test was developed and its performance characteristics determined by the [facility] consistent with CLIA requirements. This test has not been cleared or approved by the [place] Food and Drug administration. Current interpretive data last reviewed 2019. Blood 06/10/2024 4:14 AM CDT 06/10/2024 4:32 AM CDT us Patricia Davidson MD PhD LAB BLOOD ORDERABLES Final Result Performing Organization Address [facility] Co de Phone Number [facility]IN [facility] Department [place] [address] * (ABNORMAL) Renal function panel (06/10/2024 4:14 AM CDT) Sodium 142 135 - 145 mmol/L Potassium, pl 5.6(H) 3.3 - 4.9 mmol/L [facility] Comment:Hemolyzed; Potassium value may be falsely elevated by as much as 0.3-0.5 mmol/L. Suggest redraw and reanalysis. Chloride 112(H) 97 - 110 mmol/L [facility] CO2 24 22 - 32 mmol/L [facility] Anion gap 6 2 - 15 mmol/L [facility] BUN 29(H) 6 - 25 mg/dL [facility] Creatinine 2.11(H) 0.60 - 1.10 mg/dL [facility] Glucose 158 70 - 199 mg/dL [facility] Comment: Interpretive Data Fasting glucose >/= [...] Calcium 9.1 8.5 - 10.3 mg/dL [facility] Phosphorus, pl 3.7 2.3 - 4.5 mg/dL [facility] Albumin 3.6 3.5 - 5.0 g/dL [facility] Blood 06/10/2024 4:14 AM CDT 06/10/2024 4:32 AM CDT us Patricia Davidson MD PhD LAB BLOOD ORDERABLES Final Result [facility] Department [place] [address] * (ABNORMAL) POCT glucose (06/10/2024 2:27 AM CDT) Glucose, POC 210(H) 70 - 199 mg/dL Blood 06/10/2024 2:27 AM CDT 06/10/2024 2:27 AM CDT Martha Butterfield MD LAB POCT ORDERABLES - DEVICE Final Result Performing Organization Address [facility] Co de Phone Number [facility] [place] [address] * (ABNORMAL) POCT glucose (06/10/2024 1:25 AM CDT) Glucose, POC 277(H) 70 - 199 mg/dL Blood 06/10/2024 1:25 AM CDT 06/10/2024 1:25 AM CDT Martha Butterfield MD LAB POCT ORDERABLES - DEVICE Final Result Performing Organization Address [facility] Co de Phone Number [facility] [place] [address] * POCT glucose (06/10/2024 12:24 AM CDT) Glucose, POC 138 70 - 199 mg/dL Blood 06/10/2024 12:2 4 AM CDT 06/10/2024 12:24 AM CDT Martha Butterfield MD LAB POCT ORDERABLES - DEVICE Final Result Performing Organization Address [facility] Co de Phone Number [facility] [place] [address] * ECG 12 lead (06/10/2024 12:20 AM CDT) [facility] Ventricular Rate EKG/Min 65 BPM [facility] Atrial Rate 65 BPM [facility] NM-Interval (MSEC) 160 ms [facility] QRS-Interval (MSEC) 72 ms [facility] QT-Interval (MSEC) 452 ms [facility] QTc 470 ms [facility] P [place] -11 degrees [facility] R [place] -16 degrees [facility] T [place] 54 degrees [facility] Diagnosis Normal sinus rhythm Low voltage [...] Septal leads Confirmed by BRODIE LEIGH M.D ([id number]) on 06/11/2024 10:14:44 AM [facility] 06/10/2024 12:2 0 AM CDT 06/11/2024 10:14 AM CDT us Martha Butterfield MD ECG ORDERABLES Final Result [facility] * (ABNORMAL) Potassium, whole blood (06/09/2024 11:26 PM CDT) [facility] Potassium, bld 5.7(H) 3.3 - 4.9 mmol/L Blood 06/09/2024 11:2 6 PM CDT 06/09/2024 11:37 PM CDT us Martha Butterfield MD LAB BLOOD ORDERABLES F inal Result [facility] [place] [address] * (ABNORMAL) eGFR (06/09/2024 6:33 PM CDT) [facility] eGFR 30(L) >=60 mL/min/1. 73 [...] LAB BLOOD ORDERABLES F inal Result [facility] Department [place] [address] * (ABNORMAL) Renal function panel (06/09/2024 6:33 PM CDT) Sodium 141 135 - 145 mmol/L Potassium, pl 5.5(H) 3.3 - 4.9 mmol/L [facility] Comment:Hemolyzed; Potassium value may be falsely elevated by as much as 0.3-0.5 mmol/L. Suggest redraw and reanalysis. Chloride 112(H) 97 - 110 mmol/L [facility] CO2 17(L) 22 - 32 mmol/L [facility] Anion gap 12 2 - 15 mmol/L [facility] BUN 32(H) 6 - 25 mg/dL [facility] Creatinine 2.08(H) 0.60 - 1.10 mg/dL [facility] Glucose 111 70 - 199 mg/dL [facility] Comment: Interpretive Data Fasting glucose >/= [...] Calcium 8.7 8.5 - 10.3 mg/dL [facility] Phosphorus, pl 4.0 2.3 - 4.5 mg/dL [facility] Albumin 3.1(L) 3.5 - 5.0 g/dL [facility] Blood 06/09/2024 6:33 PM CDT 06/09/2024 6:48 PM CDT Martha Butterfield MD LAB BLOOD ORDERABLES F inal Result [facility] Department [place] [address] * (ABNORMAL) eGFR (06/09/2024 5:12 AM CDT) [...] PhD LAB BLOOD ORDERABLES Final Result [facility] Department [place] [address] * Differential, auto (06/09/2024 5:12 AM CDT) Neutrophil abs 2.5 1.5 - 6.5 K/cumm Imm gran abs 0.0 0.0 - 0.1 K/cumm [facility] Lymphocyte abs 1.0 0.8 - 3.3 K/cumm [facility] Monocyte abs 0.4 0.2 - 0.8 K/cumm [facility] Eosinophil abs 0.2 0.0 - 0.5 K/cumm [facility] Basophil abs 0.0 0.0 - 0.1 K/cumm [facility] Neutrophil pct 61.7 % [facility] Comment: Interpretive Data Percent cell count reference ranges are not reported, since discordance with absolute values may lead to misinterpretation of CBC data. Current Interpretive Data was last revised on 2017. Imm gran pct 0.2 % [facility] Comment: Interpretive Data Percent cell count reference ranges are not reported, since discordance with absolute values may lead to misinterpretation of CBC data. Current Interpretive Data was last revised on 2017. Lymphocyte pct 25.2 % [facility] Comment: Interpretive Data Percent cell count reference ranges are not reported, since discordance with absolute values may lead to misinterpretation of CBC data. Current Interpretive Data was last revised on 2017. Monocyte pct 8.8 % [facility] Comment: Interpretive Data Percent cell count reference ranges are not reported, since discordance with absolute values may lead to misinterpretation of CBC data. Current Interpretive Data was last revised on 2017. Eosinophil pct 3.9 % [facility] Comment: Interpretive Data Percent cell count reference ranges are not reported, since discordance with absolute values may lead to misinterpretation of CBC data. Current Interpretive Data was last revised on 2017. Basophil pct 0.2 % [facility] Comment: Interpretive Data Percent cell count reference ranges are not reported, since discordance with absolute values may lead to misinterpretation of CBC data. Current Interpretive Data was last revised on 2017. Blood 06/09/2024 5:12 AM CDT 06/09/2024 5:43 AM CDT Martha Butterfield MD LAB BLOOD ORDERABLES F inal Result Performing Organization Address [facility] Co de Phone Number [facility] [place] [address] * Tacrolimus level trough (06/09/2024 5:12 AM CDT) Pathologist [facility] Tacrolimus trough 7.5 ng/mL Comment: Interpretive Data Testing performed by liquid chromatography-tandem mass spectrometry. Therapeutic concentrations vary depending on type of transplanted organ and time elapsed since transplant. Typical trough concentrations range from 5-15 ng/mL. This test was developed and its performance characteristics determined by the [facility] consistent with CLIA requirements. This test has not been cleared or approved by the [place] Food and Drug administration. Current interpretive data last reviewed 2019. Blood 06/09/2024 5:12 AM CDT 06/09/2024 5:43 AM CDT us Patricia Davidson MD PhD LAB BLOOD ORDERABLES Final Result Performing Organization Address City/[facility]/ZIP Co de Phone Number [facility] [place] [address] * (ABNORMAL) CBC with auto differential (06/09/2024 5:12 AM CDT) WBC 4.1 3.8 - 9.9 K/cumm Hgb 10.9(L) 11.9 - 15.5 g/dL [facility] Hct 32.1(L) 35.6 - 45.5 % [facility] Plt 104(L) 150 - 400 K/cumm [facility] MPV 11.5 9.1 - 12.3 fL [facility] RBC 3.05(L) 3.90 - 5.20 M/cumm [facility] MCV 105.2(H) 81.3 - 96.4 fL [facility] MCH 35.7(H) 27.1 - 33.3 pg [facility] MCHC 34.0 32.3 - 35.7 g/dL [facility] RDW CV 14.7 11.1 - 14.9 % [facility] RDW SD 55.7(H) 35.7 - 48.1 fL [facility] NRBC abs 0.00 0.00 - 0.01 K/cumm [facility] Blood 06/09/2024 5:12 AM CDT 06/09/2024 5:43 AM CDT us Martha Butterfield MD LAB BLOOD ORDERABLES F inal Result [facility] Department [place] [address] * (ABNORMAL) Renal function panel (06/09/2024 5:12 AM CDT) Sodium 144 135 - 145 mmol/L Potassium, pl 5.1(H) 3.3 - 4.9 mmol/L [facility] Chloride 111(H) 97 - 110 mmol/L [facility] CO2 23 22 - 32 mmol/L [facility] Anion gap 10 2 - 15 mmol/L [facility] BUN 33(H) 6 - 25 mg/dL [facility] Creatinine 2.08(H) 0.60 - 1.10 mg/dL [facility] Glucose 104 70 - 199 mg/dL [facility] Comment: Interpretive Data Fasting glucose >/= [...] Calcium 8.7 8.5 - 10.3 mg/dL [facility] Phosphorus, pl 4.4 2.3 - 4.5 mg/dL [facility] Albumin 3.5 3.5 - 5.0 g/dL [facility] Blood 06/09/2024 5:12 AM CDT 06/09/2024 5:43 AM CDT Patricia Davidson MD PhD LAB BLOOD ORDERABLES Final Result Performing Organization Address [facility]/ZIP Co de Phone Number [facility] Department [place] [address] * (ABNORMAL) Potassium, whole blood (06/08/2024 8:37 AM CDT) Pathologist [facility] Potassium, bld 5.0(H) 3.3 - 4.9 mmol/L Blood 06/08/2024 8:37 AM CDT 06/08/2024 9:17 AM CDT Martha Butterfield MD LAB BLOOD ORDERABLES F inal Result [facility] Department [place] [address] * (ABNORMAL) eGFR (06/08/2024 5:40 AM CDT) Pathologist [facility] eGFR 30(L) >=60 mL/min/1. 73 m2 [...] Final Result Performing Organization Address [facility] de Phone Number [facility] [place] [address] * Tacrolimus level trough (06/08/2024 5:40 AM CDT) [facility] Tacrolimus trough 6.6 ng/mL Comment: Interpretive Data Testing performed by liquid chromatography-tandem mass spectrometry. Therapeutic concentrations vary depending on type of transplanted organ and time elapsed since transplant. Typical trough concentrations range from 5-15 ng/mL. This test was developed and its performance characteristics determined by the [facility] consistent with CLIA requirements. This test has not been cleared or approved by the [place] Food and Drug administration. Current interpretive data last reviewed 2019. Blood 06/08/2024 5:40 AM CDT 06/08/2024 6:19 AM CDT Patricia Davidson MD PhD LAB BLOOD ORDERABLES Final Result Performing Organization Address [facility] Co de Phone Number [facility] [place] [address] * (ABNORMAL) Renal function panel (06/08/2024 5:40 AM CDT) Sodium 144 135 - 145 mmol/L Potassium, pl 5.1(H) 3.3 - 4.9 mmol/L [facility] Chloride 114(H) 97 - 110 mmol/L [facility] CO2 23 22 - 32 mmol/L [facility] Anion gap 7 2 - 15 mmol/L [facility] BUN 31(H) 6 - 25 mg/dL [facility] Creatinine 2.07(H) 0.60 - 1.10 mg/dL [facility] Glucose 100 70 - 199 mg/dL [facility] Comment: Interpretive Data Fasting glucose >/= [...] Calcium 8.7 8.5 - 10.3 mg/dL [facility] Phosphorus, pl 4.5 2.3 - 4.5 mg/dL [facility] Albumin 3.3(L) 3.5 - 5.0 g/dL [facility] Blood 06/08/2024 5:40 AM CDT 06/08/2024 6:19 AM CDT us Patricia Davidson MD PhD LAB BLOOD ORDERABLES Final Result [facility] [place] [address] * (ABNORMAL) eGFR (06/07/2024 5:17 AM CDT) [...] PhD LAB BLOOD ORDERABLES Final Result [facility] [place] [address] * Differential, auto (06/07/2024 5:17 AM CDT) Neutrophil abs 2.9 1.5 - 6.5 K/cumm Imm gran abs 0.0 0.0 - 0.1 K/cumm [facility] Lymphocyte abs 1.1 0.8 - 3.3 K/cumm [facility] Monocyte abs 0.3 0.2 - 0.8 K/cumm [facility] Eosinophil abs 0.2 0.0 - 0.5 K/cumm [facility] Basophil abs 0.0 0.0 - 0.1 K/cumm [facility] Neutrophil pct 64.2 % [facility] Comment: Interpretive Data Percent cell count reference ranges are not reported, since discordance with absolute values may lead to misinterpretation of CBC data. Current Interpretive Data was last revised on 2017. Imm gran pct 0.2 % [facility] Comment: Interpretive Data Percent cell count reference ranges are not reported, since discordance with absolute values may lead to misinterpretation of CBC data. Current Interpretive Data was last revised on 2017. Lymphocyte pct 24.2 % [facility] Comment: Interpretive Data Percent cell count reference ranges are not reported, since discordance with absolute values may lead to misinterpretation of CBC data. Current Interpretive Data was last revised on 2017. Monocyte pct 7.2 % [facility] Comment: Interpretive Data Percent cell count reference ranges are not reported, since discordance with absolute values may lead to misinterpretation of CBC data. Current Interpretive Data was last revised on 2017. Eosinophil pct 4.0 % [facility] Comment: Interpretive Data Percent cell count reference ranges are not reported, since discordance with absolute values may lead to misinterpretation of CBC data. Current Interpretive Data was last revised on 2017. Basophil pct 0.2 % [facility] Comment: Interpretive Data Percent cell count reference ranges are not reported, since discordance with absolute values may lead to misinterpretation of CBC data. Current Interpretive Data was last revised on 2017. Blood 06/07/2024 5:17 AM CDT 06/07/2024 6:14 AM CDT us Martha Butterfield MD LAB BLOOD ORDERABLES F inal Result [facility] Department [place] [address] * Tacrolimus level trough (06/07/2024 5:17 AM CDT) Pathologist [facility] Tacrolimus trough 6.2 ng/mL Comment: Interpretive Data Testing performed by liquid chromatography-tandem mass spectrometry. Therapeutic concentrations vary depending on type of transplanted organ and time elapsed since transplant. Typical trough concentrations range from 5-15 ng/mL. This test was developed and its performance characteristics determined by the [facility] consistent with CLIA requirements. This test has not been cleared or approved by the [place] Food and Drug administration. Current interpretive data last reviewed 2019. Blood 06/07/2024 5:17 AM CDT 06/07/2024 6:14 AM CDT us Patricia Davidson MD PhD LAB BLOOD ORDERABLES Final Result Performing Organization Address [facility] Co de Phone Number [facility] Department [place] [address] * (ABNORMAL) CBC with auto differential (06/07/2024 5:17 AM CDT) [facility] WBC 4.5 3.8 - 9.9 K/cumm Hgb 10.7(L) 11.9 - 15.5 g/dL [facility] Hct 31.3(L) 35.6 - 45.5 % [facility] Plt 100(L) 150 - 400 K/cumm [facility] MPV 11.8 9.1 - 12.3 fL [facility] RBC 2.96(L) 3.90 - 5.20 M/cumm [facility] MCV 105.7(H) 81.3 - 96.4 fL [facility] MCH 36.1(H) 27.1 - 33.3 pg [facility] MCHC 34.2 32.3 - 35.7 g/dL [facility] RDW CV 14.2 11.1 - 14.9 % [facility] RDW SD 53.7(H) 35.7 - 48.1 fL [facility] NRBC abs 0.00 0.00 - 0.01 K/cumm [facility] Blood 06/07/2024 5:17 AM CDT 06/07/2024 6:14 AM CDT us Martha Butterfield MD LAB BLOOD ORDERABLES F inal Result Performing Organization Address City/[facility]/ZIP Co de Phone Number [facility] Department [place] [address] * (ABNORMAL) Renal function panel (06/07/2024 5:17 AM CDT) Pathologist [facility] Sodium 137 135 - 145 mmol/L Potassium, pl 4.9 3.3 - 4.9 mmol/L [facility] Chloride 108 97 - 110 mmol/L [facility] CO2 21(L) 22 - 32 mmol/L [facility] Anion gap 8 2 - 15 mmol/L [facility] BUN 28(H) 6 - 25 mg/dL [facility] Creatinine 1.92(H) 0.60 - 1.10 mg/dL [facility] Glucose 125 70 - 199 mg/dL [facility] Comment: Interpretive Data Fasting glucose >/= [...] Calcium 8.1(L) 8.5 - 10.3 mg/dL [facility] Phosphorus, pl 3.8 2.3 - 4.5 mg/dL [facility] Albumin 3.4(L) 3.5 - 5.0 g/dL [facility] Blood 06/07/2024 5:17 AM CDT 06/07/2024 6:13 AM CDT us Patricia Davidson MD PhD LAB BLOOD ORDERABLES Final Result [facility] Department [place] [address] * Potassium, whole blood (06/06/2024 11:29 AM CDT) [facility] Potassium, bld 4.9 3.3 - 4.9 mmol/L Blood 06/06/2024 11:2 9 AM CDT 06/06/2024 12:20 PM CDT us Martha Butterfield MD LAB BLOOD ORDERABLES F inal Result Performing Organization Address [facility] Co de Phone Number [facility] Department [place] [address] * (ABNORMAL) eGFR (06/06/2024 4:28 AM CDT) [...] Final Result Performing Organization Address [facility] Co de Phone Number [facility] [place] [address] * Tacrolimus level trough (06/06/2024 4:28 AM CDT) Tacrolimus trough 5.9 ng/mL Comment: Interpretive Data Testing performed by liquid chromatography-tandem mass spectrometry. Therapeutic concentrations vary depending on type of transplanted organ and time elapsed since transplant. Typical trough concentrations range from 5-15 ng/mL. This test was developed and its performance characteristics determined by the [facility] consistent with CLIA requirements. This test has not been cleared or approved by the [place] Food and Drug administration. Current interpretive data last reviewed 2019. Blood 06/06/2024 4:28 AM CDT 06/06/2024 5:44 AM CDT Patricia Davidson MD PhD LAB BLOOD ORDERABLES Final Result [facility] Department [place] [address] * (ABNORMAL) Renal function panel (06/06/2024 4:28 AM CDT) Sodium 143 135 - 145 mmol/L Potassium, pl 5.3(H) 3.3 - 4.9 mmol/L [facility] Chloride 113(H) 97 - 110 mmol/L [facility] CO2 23 22 - 32 mmol/L [facility] Anion gap 7 2 - 15 mmol/L [facility] BUN 30(H) 6 - 25 mg/dL [facility] Creatinine 1.99(H) 0.60 - 1.10 mg/dL [facility] Glucose 86 70 - 199 mg/dL [facility] Comment: Interpretive Data Fasting glucose >/= [...] Calcium 8.5 8.5 - 10.3 mg/dL [facility] Phosphorus, pl 4.1 2.3 - 4.5 mg/dL [facility] Albumin 3.1(L) 3.5 - 5.0 g/dL [facility] Blood 06/06/2024 4:28 AM CDT 06/06/2024 5:36 AM CDT Patricia Davidson MD PhD LAB BLOOD ORDERABLES Final Result Performing Organization Address [facility] de Phone Number [facility] Department [place] [address] * (ABNORMAL) eGFR (06/05/2024 5:49 AM CDT) [facility] eGFR 32(L) >=60 mL/min/1. 73 [...] BLOOD ORDERABLES Final Result Performing Organization Address City/[facility]/ZIP Co de Phone Number [facility] Department [place] [address] * Differential, auto (06/05/2024 5:49 AM CDT) [facility] Neutrophil abs 2.5 1.5 - 6.5 K/cumm Imm gran abs 0.0 0.0 - 0.1 K/cumm [facility] Lymphocyte abs 1.0 0.8 - 3.3 K/cumm [facility] Monocyte abs 0.4 0.2 - 0.8 K/cumm [facility] Eosinophil abs 0.1 0.0 - 0.5 K/cumm [facility] Basophil abs 0.0 0.0 - 0.1 K/cumm [facility] Neutrophil pct 62.5 % [facility] Comment: Interpretive Data Percent cell count reference ranges are not reported, since discordance with absolute values may lead to misinterpretation of CBC data. Current Interpretive Data was last revised on 2017. Imm gran pct 0.3 % [facility] Comment: Interpretive Data Percent cell count reference ranges are not reported, since discordance with absolute values may lead to misinterpretation of CBC data. Current Interpretive Data was last revised on 2017. Lymphocyte pct 24.3 % [facility] Comment: Interpretive Data Percent cell count reference ranges are not reported, since discordance with absolute values may lead to misinterpretation of CBC data. Current Interpretive Data was last revised on 2017. Monocyte pct 9.3 % [facility] Comment: Interpretive Data Percent cell count reference ranges are not reported, since discordance with absolute values may lead to misinterpretation of CBC data. Current Interpretive Data was last revised on 2017. Eosinophil pct 3.3 % [facility] Comment: Interpretive Data Percent cell count reference ranges are not reported, since discordance with absolute values may lead to misinterpretation of CBC data. Current Interpretive Data was last revised on 2017. Basophil pct 0.3 % [facility] Comment: Interpretive Data Percent cell count reference ranges are not reported, since discordance with absolute values may lead to misinterpretation of CBC data. Current Interpretive Data was last revised on 2017. Blood 06/05/2024 5:49 AM CDT 06/05/2024 6:48 AM CDT us Patricia Davidson MD PhD LAB BLOOD ORDERABLES Final Result [facility] Department [place] [address] * Tacrolimus level trough (06/05/2024 5:49 AM CDT) [facility] Tacrolimus trough 5.9 ng/mL Comment: Interpretive Data Testing performed by liquid chromatography-tandem mass spectrometry. Therapeutic concentrations vary depending on type of transplanted organ and time elapsed since transplant. Typical trough concentrations range from 5-15 ng/mL. This test was developed and its performance characteristics determined by the [facility] consistent with CLIA requirements. This test has not been cleared or approved by the [place] Food and Drug administration. Current interpretive data last reviewed 2019. Blood 06/05/2024 5:49 AM CDT 06/05/2024 6:48 AM CDT us Patricia Davidson MD PhD LAB BLOOD ORDERABLES Final Result [facility] Department [place] [address] * (ABNORMAL) CBC with auto differential (06/05/2024 5:49 AM CDT) [facility] WBC 4.0 3.8 - 9.9 K/cumm Hgb 10.9(L) 11.9 - 15.5 g/dL [facility] Hct 31.7(L) 35.6 - 45.5 % [facility] Plt 102(L) 150 - 400 K/cumm [facility] MPV 11.6 9.1 - 12.3 fL [facility] RBC 3.05(L) 3.90 - 5.20 M/cumm [facility] MCV 103.9(H) 81.3 - 96.4 fL [facility] MCH 35.7(H) 27.1 - 33.3 pg [facility] MCHC 34.4 32.3 - 35.7 g/dL [facility] RDW CV 14.0 11.1 - 14.9 % [facility] RDW SD 52.3(H) 35.7 - 48.1 fL [facility] NRBC abs 0.00 0.00 - 0.01 K/cumm [facility] Blood 06/05/2024 5:49 AM CDT 06/05/2024 6:48 AM CDT us Patricia Davidson MD PhD LAB BLOOD ORDERABLES Final Result [facility] Department [place] [address] * (ABNORMAL) Renal function panel (06/05/2024 5:49 AM CDT) Pathologist [facility] Sodium 140 135 - 145 mmol/L Potassium, pl 4.6 3.3 - 4.9 mmol/L [facility] Chloride 109 97 - 110 mmol/L [facility] CO2 22 22 - 32 mmol/L [facility] Anion gap 9 2 - 15 mmol/L [facility] BUN 29(H) 6 - 25 mg/dL [facility] Creatinine 1.99(H) 0.60 - 1.10 mg/dL [facility] Glucose 98 70 - 199 mg/dL [facility] Comment: Interpretive Data Fasting glucose >/= [...] Calcium 8.6 8.5 - 10.3 mg/dL [facility] Phosphorus, pl 4.3 2.3 - 4.5 mg/dL [facility] Albumin 3.5 3.5 - 5.0 g/dL [facility] Blood 06/05/2024 5:49 AM CDT 06/05/2024 6:48 AM CDT us Patricia Davidson MD PhD LAB BLOOD ORDERABLES Final Result [facility] Department [place] [address] * ECG 12 lead (06/04/2024 5:41 AM CDT) Ventricular Rate EKG/Min 67 BPM [facility] Atrial Rate 67 BPM [facility] NM-Interval (MSEC) 202 ms [facility] QRS-Interval (MSEC) 74 ms [facility] QT-Interval (MSEC) 426 ms [facility] QTc 450 ms [facility] P [place] 5 degrees [facility] R [place] -19 degrees [facility] T [place] 53 degrees [facility] Diagnosis Normal sinus rhythm 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) Abnormal ECG When compared with ECG of 30-MAY-2024 01:10, QT has shortened Confirmed by LYNDSEY TUCKER M.D ([id number]) on 06/05/2024 5:57:41 AM [facility] 06/04/2024 5:41 AM CDT 06/05/2024 5:57 AM CDT Pineda Barrios MD ECG ORDERABLES Final Result [facility] * (ABNORMAL) eGFR (06/04/2024 5:10 AM CDT) Pathologist [facility] eGFR 32(L) >=60 mL/min/1. 73 m2 [...] PhD LAB BLOOD ORDERABLES Final Result [facility] Department [place] [address] * Differential, auto (06/04/2024 5:10 AM CDT) Neutrophil abs 3.1 1.5 - 6.5 K/cumm Imm gran abs 0.0 0.0 - 0.1 K/cumm [facility] Lymphocyte abs 1.3 0.8 - 3.3 K/cumm [facility] Monocyte abs 0.5 0.2 - 0.8 K/cumm [facility] Eosinophil abs 0.2 0.0 - 0.5 K/cumm [facility] Basophil abs 0.0 0.0 - 0.1 K/cumm [facility] Neutrophil pct 61.7 % [facility] Comment: Interpretive Data Percent cell count reference ranges are not reported, since discordance with absolute values may lead to misinterpretation of CBC data. Current Interpretive Data was last revised on 2017. Imm gran pct 0.4 % [facility] Comment: Interpretive Data Percent cell count reference ranges are not reported, since discordance with absolute values may lead to misinterpretation of CBC data. Current Interpretive Data was last revised on 2017. Lymphocyte pct 25.2 % [facility] Comment: Interpretive Data Percent cell count reference ranges are not reported, since discordance with absolute values may lead to misinterpretation of CBC data. Current Interpretive Data was last revised on 2017. Monocyte pct 9.1 % [facility] Comment: Interpretive Data Percent cell count reference ranges are not reported, since discordance with absolute values may lead to misinterpretation of CBC data. Current Interpretive Data was last revised on 2017. Eosinophil pct 3.0 % [facility] Comment: Interpretive Data Percent cell count reference ranges are not reported, since discordance with absolute values may lead to misinterpretation of CBC data. Current Interpretive Data was last revised on 2017. Basophil pct 0.6 % [facility] Comment: Interpretive Data Percent cell count reference ranges are not reported, since discordance with absolute values may lead to misinterpretation of CBC data. Current Interpretive Data was last revised on 2017. Blood 06/04/2024 5:10 AM CDT 06/04/2024 6:22 AM CDT Patricia Davidson MD PhD LAB BLOOD ORDERABLES Final Result Performing Organization Address [facility] Co de Phone Number [facility] [place] [address] * Tacrolimus level trough (06/04/2024 5:10 AM CDT) Pathologist [facility] Tacrolimus trough 6.1 ng/mL Comment: Interpretive Data Testing performed by liquid chromatography-tandem mass spectrometry. Therapeutic concentrations vary depending on type of transplanted organ and time elapsed since transplant. Typical trough concentrations range from 5-15 ng/mL. This test was developed and its performance characteristics determined by the [facility] consistent with CLIA requirements. This test has not been cleared or approved by the [place] Food and Drug administration. Current interpretive data last reviewed 2019. Blood 06/04/2024 5:10 AM CDT 06/04/2024 6:22 AM CDT Patricia Davidson MD PhD LAB BLOOD ORDERABLES Final Result Performing Organization Address [facility] Co de Phone Number [facility] [place] [address] * (ABNORMAL) CBC with auto differential (06/04/2024 5:10 AM CDT) Pathologist [facility] WBC 5.0 3.8 - 9.9 K/cumm Hgb 11.2(L) 11.9 - 15.5 g/dL [facility] Hct 32.3(L) 35.6 - 45.5 % [facility] Plt 102(L) 150 - 400 K/cumm [facility] MPV 11.6 9.1 - 12.3 fL [facility] RBC 3.13(L) 3.90 - 5.20 M/cumm [facility] MCV 103.2(H) 81.3 - 96.4 fL [facility] MCH 35.8(H) 27.1 - 33.3 pg [facility] MCHC 34.7 32.3 - 35.7 g/dL [facility] RDW CV 13.7 11.1 - 14.9 % [facility] RDW SD 51.2(H) 35.7 - 48.1 fL [facility] NRBC abs 0.00 0.00 - 0.01 K/cumm [facility] Blood 06/04/2024 5:1 0 AM CDT 06/04/2024 6:22 AM CDT us Patricia Davidson MD PhD LAB BLOOD ORDERABLES Final Result [facility] Department [place] [address] * (ABNORMAL) Renal function panel (06/04/2024 5:10 AM CDT) Sodium 144 135 - 145 mmol/L Potassium, pl 4.8 3.3 - 4.9 mmol/L [facility] Chloride 112(H) 97 - 110 mmol/L [facility] CO2 23 22 - 32 mmol/L [facility] Anion gap 9 2 - 15 mmol/L [facility] BUN 25 6 - 25 mg/dL [facility] Creatinine 1.98(H) 0.60 - 1.10 mg/dL [facility] Glucose 81 70 - 199 mg/dL [facility] Comment: Interpretive Data Fasting glucose >/= [...] Calcium 8.9 8.5 - 10.3 mg/dL [facility] Phosphorus, pl 4.3 2.3 - 4.5 mg/dL [facility] Albumin 3.4(L) 3.5 - 5.0 g/dL [facility] Blood 06/04/2024 5:10 AM CDT 06/04/2024 6:23 AM CDT Patricia Davidson MD PhD LAB BLOOD ORDERABLES Final Result Performing Organization Address [facility] Co de Phone Number [facility] [place] [address] * Folate (06/04/2024 12:39 AM CDT) Folic acid See Comment >=5.0 ng/mL Comment: Credited; Hemolyzed Specimen Telephone report made to: Luz Maria Iyer RN on 06/04/2024 08:49:44 CDT by SAUD . Blood 06/04/2024 12:3 9 AM CDT 06/04/2024 1:24 AM CDT Shea Babcock MD LAB BLOOD ORDERABLE S Final Result Performing Organization Address [facility] Co de Phone Number [facility] [place] [address] * Protein / creatinine ratio, urine, random (06/03/2024 6:15 PM CDT) Protein, ur, quant <5.0 mg/dL Comment: Interpretive Data No reference range established. Current interpretive data was last revised 2018. Creatinine Ur 39.1 mg/dL [facility] Comment: Interpretive Data No reference range established. Current interpretive data was last revised 2018. Protein/creatinin e ratio <127.9 0.0 - 180.0 mg/g CR [facility] Urine 06/03/2024 6:15 PM CDT 06/03/2024 7:42 PM CDT Pineda Barrios MD LAB URINE ORDE RABLES Final Result Performing Organization Address City/[facility] Co de Phone Number [facility] [place] [address] * (ABNORMAL) eGFR (06/03/2024 8:54 AM CDT) Pathologist [facility] eGFR 33(L) >=60 mL/min/1. 73 m2 Comment: [...] BLOOD ORDERABLES Final Result Performing Organization Address City/[facility]/ZIP Co de Phone Number [facility] [place] [address] * Differential, auto (06/03/2024 8:54 AM CDT) [...] [facility] Neutrophil pct 59.1 % [facility] Comment: Interpretive Data Percent cell count reference ranges are not reported, since discordance with absolute values may lead to misinterpretation of CBC data. Current Interpretive Data was last revised on 2017. Imm gran pct 0.4 % [facility] Comment: Interpretive Data Percent cell count reference ranges are not reported, since discordance with absolute values may lead to misinterpretation of CBC data. Current Interpretive Data was last revised on 2017. Lymphocyte pct 27.4 % [facility] Comment: Interpretive Data Percent cell count reference ranges are not reported, since discordance with absolute values may lead to misinterpretation of CBC data. Current Interpretive Data was last revised on 2017. Monocyte pct 9.1 % [facility] Comment: Interpretive Data Percent cell count reference ranges are not reported, since discordance with absolute values may lead to misinterpretation of CBC data. Current Interpretive Data was last revised on 2017. Eosinophil pct 3.8 % [facility] Comment: Interpretive Data Percent cell count reference ranges are not reported, since discordance with absolute values may lead to misinterpretation of CBC data. Current Interpretive Data was last revised on 2017. Basophil pct 0.2 % [facility] Comment: Interpretive Data Percent cell count reference ranges are not reported, since discordance with absolute values may lead to misinterpretation of CBC data. Current Interpretive Data was last revised on 2017. Blood 06/03/2024 8:54 AM CDT 06/03/2024 9:23 AM CDT Patricia Davidson MD PhD LAB BLOOD ORDERABLES Final Result Performing Organization Address [facility] Co de Phone Number [facility] [place] [address] * Tacrolimus level trough (06/03/2024 8:54 AM CDT) [facility] Tacrolimus trough 4.9 ng/mL Comment: Interpretive Data Testing performed by liquid chromatography-tandem mass spectrometry. Therapeutic concentrations vary depending on type of transplanted organ and time elapsed since transplant. Typical trough concentrations range from 5-15 ng/mL. This test was developed and its performance characteristics determined by the [facility] consistent with CLIA requirements. This test has not been cleared or approved by the [place] Food and Drug administration. Current interpretive data last reviewed 2019. Blood 06/03/2024 8:54 AM CDT 06/03/2024 9:22 AM CDT Patricia Davidson MD PhD LAB BLOOD ORDERABLES Final Result Performing Organization Address City/[facility] Co de Phone Number [facility] [place] [address] * (ABNORMAL) CBC with auto differential (06/03/2024 8:54 AM CDT) [facility] WBC 4.7 3.8 - 9.9 K/cumm Hgb 11.6(L) 11.9 - 15.5 g/dL [facility] Hct 32.6(L) 35.6 - 45.5 % [facility] Plt 121(L) 150 - 400 K/cumm [facility] MPV 11.0 9.1 - 12.3 fL [facility] RBC 3.19(L) 3.90 - 5.20 M/cumm [facility] MCV 102.2(H) 81.3 - 96.4 fL [facility] MCH 36.4(H) 27.1 - 33.3 pg [facility] MCHC 35.6 32.3 - 35.7 g/dL [facility] RDW CV 13.5 11.1 - 14.9 % [facility] RDW SD 49.6(H) 35.7 - 48.1 fL [facility] NRBC abs 0.00 0.00 - 0.01 K/cumm [facility] Blood 06/03/2024 8:54 AM CDT 06/03/2024 9:23 AM CDT us Patricia Davidson MD PhD LAB BLOOD ORDERABLES Final Result Performing Organization Address City/[facility]/ZIP Co de Phone Number [facility] Department [place] [address] * CRP (acute phase) (06/03/2024 8:54 AM CDT) [facility] CRP 6.5 <=10.0 mg/L Blood 06/03/2024 8:54 AM CDT 06/03/2024 9:25 AM CDT Pineda Barrios MD LAB BLOOD ORDE RABLES Final Result Performing Organization Address [facility] de Phone Number [facility] [place] [address] * (ABNORMAL) Renal function panel (06/03/2024 8:54 AM CDT) [facility] Sodium 143 135 - 145 mmol/L Potassium, pl 4.6 3.3 - 4.9 mmol/L [facility] Chloride 110 97 - 110 mmol/L [facility] CO2 23 22 - 32 mmol/L [facility] Anion gap 10 2 - 15 mmol/L [facility] BUN 21 6 - 25 mg/dL [facility] Creatinine 1.93(H) 0.60 - 1.10 mg/dL [facility] Glucose 125 70 - 199 mg/dL [facility] Comment: Interpretive Data Fasting glucose >/= [...] Calcium 9.1 8.5 - 10.3 mg/dL [facility] Phosphorus, pl 3.5 2.3 - 4.5 mg/dL [facility] Albumin 3.5 3.5 - 5.0 g/dL [facility] Blood 06/03/2024 8:54 AM CDT 06/03/2024 9:25 AM CDT us Patricia Davidson MD PhD LAB BLOOD ORDERABLES Final Result [facility] Department [place] [address] * (ABNORMAL) eGFR (06/03/2024 2:22 AM CDT) [...] LAB BLOOD RICO VALDEZ Final Result [facility] Department [place] [address] * Differential, auto (06/03/2024 2:22 AM CDT) [...] K/cumm [facility] Neutrophil pct 58.3 % [facility] Comment: Interpretive Data Percent cell count reference ranges are not reported, since discordance with absolute values may lead to misinterpretation of CBC data. Current Interpretive Data was last revised on 2017. Imm gran pct 0.5 % [facility] Comment: Interpretive Data Percent cell count reference ranges are not reported, since discordance with absolute values may lead to misinterpretation of CBC data. Current Interpretive Data was last revised on 2017. Lymphocyte pct 28.7 % [facility] Comment: Interpretive Data Percent cell count reference ranges are not reported, since discordance with absolute values may lead to misinterpretation of CBC data. Current Interpretive Data was last revised on 2017. Monocyte pct 9.2 % [facility] Comment: Interpretive Data Percent cell count reference ranges are not reported, since discordance with absolute values may lead to misinterpretation of CBC data. Current Interpretive Data was last revised on 2017. Eosinophil pct 3.1 % [facility] Comment: Interpretive Data Percent cell count reference ranges are not reported, since discordance with absolute values may lead to misinterpretation of CBC data. Current Interpretive Data was last revised on 2017. Basophil pct 0.2 % [facility] Comment: Interpretive Data Percent cell count reference ranges are not reported, since discordance with absolute values may lead to misinterpretation of CBC data. Current Interpretive Data was last revised on 2017. Blood 06/03/2024 2:22 AM CDT 06/03/2024 2:57 AM CDT Pineda Barrios MD LAB BLOOD ORDE COURTNEY Final Result [facility] [place] [address] * (ABNORMAL) Iron profile w/ IBC (06/03/2024 2:22 AM CDT) Pathologist [facility] Iron 104 35 - 145 mcg/dL TIBC 192(L) 250 - 400 mcg/dL [facility] Transferrin saturation 54(H) 20 - 50 % [facility] Blood 06/03/2024 2:22 AM CDT 06/03/2024 2:57 AM CDT Shea Babcock MD LAB BLOOD ORDERABLE S Final Result [facility] [place] [address] * (ABNORMAL) CBC with auto differential (06/03/2024 2:22 AM CDT) WBC 4.2 3.8 - 9.9 K/cumm Hgb 11.5(L) 11.9 - 15.5 g/dL [facility] Hct 32.9(L) 35.6 - 45.5 % [facility] Plt 120(L) 150 - 400 K/cumm [facility] MPV 11.2 9.1 - 12.3 fL [facility] RBC 3.24(L) 3.90 - 5.20 M/cumm [facility] MCV 101.5(H) 81.3 - 96.4 fL [facility] MCH 35.5(H) 27.1 - 33.3 pg [facility] MCHC 35.0 32.3 - 35.7 g/dL [facility] RDW CV 13.4 11.1 - 14.9 % [facility] RDW SD 49.9(H) 35.7 - 48.1 fL [facility] NRBC abs 0.00 0.00 - 0.01 K/cumm [facility] Blood 06/03/2024 2:22 AM CDT 06/03/2024 2:57 AM CDT Pineda Barrios MD LAB [facility]LOOD [facility] Final Result Performing Organization Address [facility] de Phone Number [facility] [place] [address] * Tacrolimus level random (06/03/2024 2:22 AM CDT) [facility] Signature Tacrolimus random 6.3 ng/mL Comment: Interpretive Data Testing performed by liquid chromatography-tandem mass spectrometry. Therapeutic concentrations vary depending on type of transplanted organ and time elapsed since transplant. Typical trough concentrations range from 5-15 ng/mL. This test was developed and its performance characteristics determined by the [facility] consistent with CLIA requirements. This test has not been cleared or approved by the [place] Food and Drug administration. Current interpretive data last reviewed 2019. Blood 06/03/2024 2:22 AM CDT 06/03/2024 2:57 AM CDT Pineda Barrios MD LAB BLOOD ORDE RABVERONICA Final Result Performing Organization Address City/[facility] Co de Phone Number [facility] [place] [address] * TSH (06/03/2024 2:22 AM CDT) [facility] Thyroid Stimulating Hormone 1.91 0.30 - 4.20 mcIUnit/mL Blood 06/03/2024 2:22 AM CDT 06/03/2024 2:57 AM CDT Shea Babcock MD LAB BLOOD ORDERABLE S Final Result [facility] [place] [address] * (ABNORMAL) Ferritin (06/03/2024 2:22 AM CDT) [facility] Ferritin 213(H) 13 - 150 ng/mL Blood 06/03/2024 2:22 AM CDT 06/03/2024 2:57 AM CDT Shea Babcock MD LAB BLOOD ORDERABLE S Final Result Performing Organization Address City/[facility]/ZIP Co de Phone Number [facility] [place] [address] * Vitamin B12 (06/03/2024 2:22 AM CDT) [facility] Vitamin B12 749 230 - 1,250 pg/mL Blood 06/03/2024 2:22 AM CDT 06/03/2024 2:57 AM CDT Shea Babcock MD LAB BLOOD ORDERABLE S Final Result [facility] [place] [address] * (ABNORMAL) Renal function panel (06/03/2024 2:22 AM CDT) [facility] Sodium 144 135 - 145 mmol/L Potassium, pl 5.0(H) 3.3 - 4.9 mmol/L [facility] Chloride 111(H) 97 - 110 mmol/L [facility] CO2 25 22 - 32 mmol/L [facility] Anion gap 8 2 - 15 mmol/L [facility] BUN 23 6 - 25 mg/dL [facility] Creatinine 1.86(H) 0.60 - 1.10 mg/dL [facility] Glucose 102 70 - 199 mg/dL [facility] Comment: Interpretive Data Fasting glucose >/= [...] Calcium 9.2 8.5 - 10.3 mg/dL [facility] Phosphorus, pl 3.1 2.3 - 4.5 mg/dL [facility] Albumin 3.8 3.5 - 5.0 g/dL [facility] Blood 06/03/2024 2:22 AM CDT 06/03/2024 2:57 AM CDT Pineda Barrios MD LAB BLOOD [place]DEZ Final Result [facility] Department [place] [address] * (ABNORMAL) eGFR (06/02/2024 8:43 AM CDT) [...] PhD LAB BLOOD ORDERABLES Final Result [facility] Department [place] [address] * Differential, auto (06/02/2024 8:43 AM CDT) Pathologist [facility] Neutrophil abs 2.3 1.5 - 6.5 K/cumm Imm gran abs 0.0 0.0 - 0.1 K/cumm [facility] Lymphocyte abs 1.3 0.8 - 3.3 K/cumm [facility] Monocyte abs 0.4 0.2 - 0.8 K/cumm [facility] Eosinophil abs 0.1 0.0 - 0.5 K/cumm [facility] Basophil abs 0.0 0.0 - 0.1 K/cumm [facility] Neutrophil pct 55.6 % [facility] Comment: Interpretive Data Percent cell count reference ranges are not reported, since discordance with absolute values may lead to misinterpretation of CBC data. Current Interpretive Data was last revised on 2017. Imm gran pct 0.2 % [facility] Comment: Interpretive Data Percent cell count reference ranges are not reported, since discordance with absolute values may lead to misinterpretation of CBC data. Current Interpretive Data was last revised on 2017. Lymphocyte pct 30.7 % [facility] Comment: Interpretive Data Percent cell count reference ranges are not reported, since discordance with absolute values may lead to misinterpretation of CBC data. Current Interpretive Data was last revised on 2017. Monocyte pct 10.1 % [facility] Comment: Interpretive Data Percent cell count reference ranges are not reported, since discordance with absolute values may lead to misinterpretation of CBC data. Current Interpretive Data was last revised on 2017. Eosinophil pct 3.2 % [facility] Comment: Interpretive Data Percent cell count reference ranges are not reported, since discordance with absolute values may lead to misinterpretation of CBC data. Current Interpretive Data was last revised on 2017. Basophil pct 0.2 % [facility] Comment: Interpretive Data Percent cell count reference ranges are not reported, since discordance with absolute values may lead to misinterpretation of CBC data. Current Interpretive Data was last revised on 2017. Blood 06/02/2024 8:43 AM CDT 06/02/2024 9:14 AM CDT Patricia Davidson MD PhD LAB BLOOD ORDERABLES Final Result Performing Organization Address [facility] de Phone Number [facility] Department [place] [address] * Tacrolimus level trough (06/02/2024 8:43 AM CDT) [facility] Tacrolimus trough 3.8 ng/mL Comment: Interpretive Data Testing performed by liquid chromatography-tandem mass spectrometry. Therapeutic concentrations vary depending on type of transplanted organ and time elapsed since transplant. Typical trough concentrations range from 5-15 ng/mL. This test was developed and its performance characteristics determined by the [facility] consistent with CLIA requirements. This test has not been cleared or approved by the [place] Food and Drug administration. Current interpretive data last reviewed 2019. Blood 06/02/2024 8:43 AM CDT 06/02/2024 9:14 AM CDT Patricia Davidson MD PhD LAB BLOOD ORDERABLES Final Result Performing Organization Address City/[facility] Co de Phone Number [facility] Department [place] [address] * (ABNORMAL) CBC with auto differential (06/02/2024 8:43 AM CDT) [facility] WBC 4.1 3.8 - 9.9 K/cumm Hgb 10.8(L) 11.9 - 15.5 g/dL [facility] Hct 30.5(L) 35.6 - 45.5 % [facility] Plt 105(L) 150 - 400 K/cumm [facility] MPV 11.6 9.1 - 12.3 fL [facility] RBC 3.03(L) 3.90 - 5.20 M/cumm [facility] MCV 100.7(H) 81.3 - 96.4 fL [facility] MCH 35.6(H) 27.1 - 33.3 pg [facility] MCHC 35.4 32.3 - 35.7 g/dL [facility] RDW CV 13.3 11.1 - 14.9 % [facility] RDW SD 48.2(H) 35.7 - 48.1 fL [facility] NRBC abs 0.00 0.00 - 0.01 K/cumm [facility] Blood 06/02/2024 8:43 AM CDT 06/02/2024 9:14 AM CDT us Patricia Davidson MD PhD LAB BLOOD ORDERABLES Final Result [facility] Department [place] [address] * (ABNORMAL) Renal function panel (06/02/2024 8:43 AM CDT) [facility] Sodium 143 135 - 145 mmol/L Potassium, pl 5.1(H) 3.3 - 4.9 mmol/L [facility] Comment:Hemolyzed; Potassium value may be falsely elevated by as much as 0.3-0.5 mmol/L. Suggest redraw and reanalysis. Chloride 111(H) 97 - 110 mmol/L [facility] CO2 26 22 - 32 mmol/L [facility] Anion gap 6 2 - 15 mmol/L [facility] BUN 22 6 - 25 mg/dL [facility] Creatinine 1.93(H) 0.60 - 1.10 mg/dL [facility] Glucose 108 70 - 199 mg/dL [facility] Comment: Interpretive Data Fasting glucose >/= [...] Calcium 8.8 8.5 - 10.3 mg/dL [facility] Phosphorus, pl 3.5 2.3 - 4.5 mg/dL [facility] Albumin 3.4(L) 3.5 - 5.0 g/dL [facility] Blood 06/02/2024 8:43 AM CDT 06/02/2024 9:14 AM CDT us Patricia Davidson MD PhD LAB BLOOD ORDERABLES Final Result Performing Organization Address City/[facility] Phone Number [facility] Department [place] [address] * Immunoglobulin profile (06/01/2024 9:10 PM CDT) Pathologist [facility] Immunoglobulin G 882 700 - 1,600 mg/dL Immunoglobulin A 213 70 - 400 mg/dL [facility] Immunoglobulin M 92 40 - 230 mg/dL [facility] Blood 06/01/2024 9:10 PM CDT 06/01/2024 10:48 PM CDT Pineda Barrios MD LAB BLOOD ORDE COURTNEY Final Result [facility] Department [place] [address] * Differential, auto (06/01/2024 10:03 AM CDT) Neutrophil abs 3.5 1.5 - 6.5 K/cumm Imm gran abs 0.0 0.0 - 0.1 K/cumm [facility] Lymphocyte abs 1.3 0.8 - 3.3 K/cumm [facility] Monocyte abs 0.4 0.2 - 0.8 K/cumm [facility] Eosinophil abs 0.2 0.0 - 0.5 K/cumm [facility] Basophil abs 0.0 0.0 - 0.1 [facility] Neutrophil pct 65.5 % [facility] Comment: Interpretive Data Percent cell count reference ranges are not reported, since discordance with absolute values may lead to misinterpretation of CBC data. Current Interpretive Data was last revised on 2017. Imm gran pct 0.2 % [facility] Comment: Interpretive Data Percent cell count reference ranges are not reported, since discordance with absolute values may lead to misinterpretation of CBC data. Current Interpretive Data was last revised on 2017. Lymphocyte pct 23.6 % [facility] Comment: Interpretive Data Percent cell count reference ranges are not reported, since discordance with absolute values may lead to misinterpretation of CBC data. Current Interpretive Data was last revised on 2017. Monocyte pct 7.7 % [facility] Comment: Interpretive Data Percent cell count reference ranges are not reported, since discordance with absolute values may lead to misinterpretation of CBC data. Current Interpretive Data was last revised on 2017. Eosinophil pct 2.8 % [facility] Comment: Interpretive Data Percent cell count reference ranges are not reported, since discordance with absolute values may lead to misinterpretation of CBC data. Current Interpretive Data was last revised on 2017. Basophil pct 0.2 % [facility] Comment: Interpretive Data Percent cell count reference ranges are not reported, since discordance with absolute values may lead to misinterpretation of CBC data. Current Interpretive Data was last revised on 2017. Blood 06/01/2024 10:0 3 AM CDT 06/01/2024 10:19 AM CDT Patricia Davidson MD PhD LAB BLOOD ORDERABLES Final Result Performing Organization Address [facility] de Phone Number [facility] Department [place] [address] * (ABNORMAL) CBC with auto differential (06/01/2024 10:03 AM CDT) Pathologist [facility] WBC 5.3 3.8 - 9.9 K/cumm Hgb 12.1 11.9 - 15.5 g/dL [facility] Hct 34.0(L) 35.6 - 45.5 % [facility] Plt 98(L) 150 - 400 K/cumm [facility] MPV 11.6 9.1 - 12.3 fL [facility] RBC 3.44(L) 3.90 - 5.20 M/cumm [facility] MCV 98.8(H) 81.3 - 96.4 fL [facility] MCH 35.2(H) 27.1 - 33.3 pg [facility] MCHC 35.6 32.3 - 35.7 g/dL [facility] RDW CV 12.8 11.1 - 14.9 % [facility] RDW SD 45.8 35.7 - 48.1 fL [facility] NRBC abs 0.00 0.00 - 0.01 K/cumm [facility] Blood 06/01/2024 10:0 3 AM CDT 06/01/2024 10:19 AM CDT Patricia Davidson MD PhD LAB BLOOD ORDERABLES Final Result Performing Organization Address City/[facility]/ZIP Co de Phone Number [facility] Department [place] [address] * Tacrolimus level trough (06/01/2024 9:20 AM CDT) Pathologist [facility] Tacrolimus trough 6.5 ng/mL Comment: Interpretive Data Testing performed by liquid chromatography-tandem mass spectrometry. Therapeutic concentrations vary depending on type of transplanted organ and time elapsed since transplant. Typical trough concentrations range from 5-15 ng/mL. This test was developed and its performance characteristics determined by the [facility] consistent with CLIA requirements. This test has not been cleared or approved by the [place] Food and Drug administration. Current interpretive data last reviewed 2019. Blood 06/01/2024 9:20 AM CDT 06/01/2024 9:53 AM CDT us Patricia Davidson MD PhD LAB BLOOD ORDERABLES Final Result [facility] Department [place] [address] * (ABNORMAL) eGFR (06/01/2024 6:17 AM CDT) [facility] eGFR 29(L) >=60 mL/min/1. 73 m2 Comment: [...] BLOOD ORDERABLES Final Result Performing Organization Address City/[facility]/ZIP Co de Phone Number [facility] Department [place] [address] * (ABNORMAL) Renal function panel (06/01/2024 6:17 AM CDT) Sodium 135 135 - 145 mmol/L Potassium, pl 4.5 3.3 - 4.9 mmol/L [facility] Chloride 103 97 - 110 mmol/L [facility] CO2 22 22 - 32 mmol/L [facility] Anion gap 10 2 - 15 mmol/L [facility] BUN 24 6 - 25 mg/dL [facility] Creatinine 2.15(H) 0.60 - 1.10 mg/dL [facility] Glucose 120 70 - 199 mg/dL [facility] Comment: Interpretive Data Fasting glucose >/= [...] Calcium 8.7 8.5 - 10.3 mg/dL [facility] Phosphorus, pl 2.8 2.3 - 4.5 mg/dL [facility] Albumin 3.6 3.5 - 5.0 g/dL [facility] Blood 06/01/2024 6:17 AM CDT 06/01/2024 6:52 AM CDT us Patricia Davidson MD PhD LAB BLOOD ORDERABLES Final Result Performing Organization Address City/[facility]/ZIP Co de Phone Number [facility] Department [place] [address] * TRANSTHORACIC ECHO (TTE) COMPLETE W DOPPLER/CF WO CONTRAST (05/31/2024 2:50 PM CDT) Anatomical Region Laterality Modality Ultrasound 05/31/2024 2:12 PM CDT Narrative 05/31/2024 3:36 PM CDT [facility] [place] [address] Transthoracic Echocardiographic Report Patient Name: MISHA BROWNE : 1980 (43y 7m) Gender: F Study Date: 05/31/2024 02:12:33 PM Ht(Inch): 63 Wt(Lb): 184.97 BSA: 1.93 Seat Cover Cutter: Elisabeth Em RDCS Location: [id number] Order Provider: PINEDA HINOJOSA Heart Rate: 61 [...] trileaflet aortic valve. Mild aortic valve regurgitation (RCY=960 ms). The mean transaortic gradient is 4 [...] LA Length 4C 6.78 cm AI Decel [place] 2.15 m/s2 LA Length 2C 6.66 cm [...] Note Stalin Krishna MD - 05/31/2024 [facility] [place] [address] Transthoracic Echocardiographic Report Patient Name: MISHA BROWNE : 1980 (43y 7m) Gender: F Study Date: 05/31/2024 02:12:33 PM Ht(Inch): 63 Wt(Lb): 184.97 BSA: 1.93 Seat Cover Cutter: Elisabeth Em RDCS Location: [id number] Order Provider:PINEDA HINOJOSA Heart Rate: 61 BMI: [...] Normal trileaflet aortic valve. Mild aortic valve regurgitation(WXT=922 ms). The mean transaortic gradient is 4 [...] [ -25.0 - -18.0 ] AI Decel [id number] sec LA Length 4C 6.78 cm AI Decel Slope2.15 m/s2 LA Length 2C 6.66 cm AI [id number] msec LA Volume BP 83.77 ml MV [...] [ 1.71 - 5.00 ] MV Decel [id number] msec [ 104.00 - 258.00 ] RA [...] (ABNORMAL) eGFR (05/31/2024 4:55 AM CDT) Pathologist [facility] eGFR 20(L) >=60 mL/min/1. 73 m2 Comment: [...] PhD LAB BLOOD ORDERABLES Final Result [facility] Department of Laboratories [place], [place] [id number] * Differential, auto (05/31/2024 4:55 AM CDT) Pathologist [facility] Neutrophil abs 4.9 1.5 - 6.5 K/cumm Imm gran abs 0.0 0.0 - 0.1 K/cumm ALEK [facility] Lymphocyte abs 1.4 0.8 - 3.3 K/cumm [facility] Monocyte abs 0.6 0.2 - 0.8 K/cumm [facility] Eosinophil abs 0.1 0.0 - 0.5 K/cumm [facility] Basophil abs 0.0 0.0 - 0.1 K/cumm [facility] Neutrophil pct 69.8 % [facility] Comment: Interpretive Data Percent cell count reference ranges are not reported, since discordance with absolute values may lead to misinterpretation of CBC data. Current Interpretive Data was last revised on 2017. Imm gran pct 0.6 % [facility] Comment: Interpretive Data Percent cell count reference ranges are not reported, since discordance with absolute values may lead to misinterpretation of CBC data. Current Interpretive Data was last revised on 2017. Lymphocyte pct 19.7 % [facility] Comment: Interpretive Data Percent cell count reference ranges are not reported, since discordance with absolute values may lead to misinterpretation of CBC data. Current Interpretive Data was last revised on 2017. Monocyte pct 8.0 % [facility] Comment: Interpretive Data Percent cell count reference ranges are not reported, since discordance with absolute values may lead to misinterpretation of CBC data. Current Interpretive Data was last revised on 2017. Eosinophil pct 1.9 % [facility] Comment: Interpretive Data Percent cell count reference ranges are not reported, since discordance with absolute values may lead to misinterpretation of CBC data. Current Interpretive Data was last revised on 2017. Basophil pct 0.0 % [facility] Comment: Interpretive Data Percent cell count reference ranges are not reported, since discordance with absolute values may lead to misinterpretation of CBC data. Current Interpretive Data was last revised on 2017. Blood 05/31/2024 4:55 AM CDT 05/31/2024 5:49 AM CDT us Patricia Davidson MD PhD LAB BLOOD ORDERABLES Final Result [facility] Department [place] [address] * Tacrolimus level trough (05/31/2024 4:55 AM CDT) [facility] Tacrolimus trough 9.2 ng/mL Comment: Interpretive Data Testing performed by liquid chromatography-tandem mass spectrometry. Therapeutic concentrations vary depending on type of transplanted organ and time elapsed since transplant. Typical trough concentrations range from 5-15 ng/mL. This test was developed and its performance characteristics determined by the [facility] consistent with CLIA requirements. This test has not been cleared or approved by the [place] Food and Drug administration. Current interpretive data last reviewed 2019. Blood 05/31/2024 4:55 AM CDT 05/31/2024 5:49 AM CDT us Patricia Davidson MD PhD LAB BLOOD ORDERABLES Final Result [facility] Department [place] [address] * (ABNORMAL) CBC with auto differential (05/31/2024 4:55 AM CDT) [facility] WBC 7.0 3.8 - 9.9 K/cumm Hgb 11.2(L) 11.9 - 15.5 g/dL [facility] Hct 31.4(L) 35.6 - 45.5 % [facility] Plt 102(L) 150 - 400 K/cumm [facility] MPV 10.9 9.1 - 12.3 fL [facility] RBC 3.15(L) 3.90 - 5.20 M/cumm [facility] MCV 99.7(H) 81.3 - 96.4 fL [facility] MCH 35.6(H) 27.1 - 33.3 pg [facility] MCHC 35.7 32.3 - 35.7 g/dL [facility] RDW CV 12.9 11.1 - 14.9 % [facility] RDW SD 46.0 35.7 - 48.1 fL [facility] NRBC abs 0.00 0.00 - 0.01 K/cumm [facility] Blood 05/31/2024 4:55 AM CDT 05/31/2024 5:49 AM CDT us Patricia Davidson MD PhD LAB BLOOD ORDERABLES Final Result [facility] Department [place] [address] * (ABNORMAL) Renal function panel (05/31/2024 4:55 AM CDT) Pathologist [facility] Sodium 136 135 - 145 mmol/L Potassium, pl 4.6 3.3 - 4.9 mmol/L [facility] Chloride 105 97 - 110 mmol/L [facility] CO2 23 22 - 32 mmol/L [facility] Anion gap 8 2 - 15 mmol/L [facility] BUN 30(H) 6 - 25 mg/dL [facility] Creatinine 2.90(H) 0.60 - 1.10 mg/dL [facility] Glucose 119 70 - 199 mg/dL [facility] Comment: Interpretive Data Fasting glucose >/= [...] Calcium 8.4(L) 8.5 - 10.3 mg/dL [facility] Phosphorus, pl 3.2 2.3 - 4.5 mg/dL [facility] Albumin 3.6 3.5 - 5.0 g/dL [facility] Blood 05/31/2024 4:55 AM CDT 05/31/2024 5:48 AM CDT us Patricia Davidson MD PhD LAB BLOOD ORDERABLES Final Result [facility] One [facility] [place] [address] * Sodium, urine, random (05/30/2024 5:23 PM CDT) Sodium, ur <20 mmol/L Comment: Interpretive Data No reference range established. Current interpretive data was last revised 2018. Urine 05/30/2024 5:23 PM CDT 05/30/2024 5:59 PM CDT Pineda Barrios MD LAB URINE ORDE RABLES Final Result Performing Organization Address City/[facility]/ZIP Co de Phone Number [facility] One [facility] [place] [address] * Creatinine, urine, random (05/30/2024 5:23 PM CDT) Creatinine Ur 121.1 mg/dL Comment: Interpretive Data No reference range established. Current interpretive data was last revised 2018. Urine 05/30/2024 5:23 PM CDT 05/30/2024 5:59 PM CDT Pineda Barrios MD LAB URINE ORDE RABLES Final Result Performing Organization Address City/[facility] Co de Phone Number [facility] [place] [address] * BK virus PCR quantitative Blood (05/30/2024 4:44 AM CDT) BKV DNA result, pl Not Detected [facility] Comment: The quantifiable range of this assay is 21.5 IU/mL to 100,000,000 IU/mL (1.33 log IU/mL to 8.00 log IU/mL). Testing was performed by the [employer] 6800 BKV Quantatitive Test version 2.0 ([employer] Testing performed at [facility] Current Interpretive Data was last revised on 2021. Blood 05/30/2024 4:44 AM CDT 05/30/2024 5:55 AM CDT Result [facility] Patricia Davidson MD PhD LAB MICROBIOLOGY - GENERAL ORDERABLES Final Result Performing Organization Address City/[facility] Co de Phone Number [facility] [place] [address] [facility] * Collection Task for HLA Antibody Screen (05/30/2024 4:44 AM CDT) Pathologist [facility] HLA Antibody Screen By Single Antigen Received Blood 05/30/2024 4:44 AM CDT 05/30/2024 9:01 AM CDT Result [facility] Patricia Davidson MD PhD LAB BLOOD ORDERABLES Final Result Performing Organization Address [facility] de Phone Number [facility] [place] [address] * Cytomegalovirus (CMV) DNA PCR, quantitative Blood (05/30/2024 4:44 AM CDT) Pathologist [facility] CMV DNA Not Detected [facility] Comment: Interpretive Data: The quantifiable range of this assay is 34 IUnits/mL to 10,000,000 IUnits/mL (1.53 log IUnits/mL to 7.0 log IUnits/mL). Testing was performed by the GASTON 6800 CMV Test ([employer] Testing performed at [facility]. Current interpretive data was last revised on 2020. Blood 05/30/2024 4:44 AM CDT 05/30/2024 5:55 AM CDT Result [facility] Patricia Davidson MD PhD LAB MICROBIOLOGY - GENERAL ORDERABLES Final Result Performing Organization Address [facility] Co de Phone Number [facility] [place] [address] [facility] * (ABNORMAL) eGFR (05/30/2024 4:44 AM CDT) [facility] eGFR 21(L) >=60 mL/min/1. 73 [...] PhD LAB BLOOD ORDERABLES Final Result [facility] Department [place] [address] * Differential, auto (05/30/2024 4:44 AM CDT) [facility] Neutrophil abs 5.0 1.5 - 6.5 K/cumm Imm gran abs 0.0 0.0 - 0.1 K/cumm [facility] Lymphocyte abs 1.7 0.8 - 3.3 K/cumm [facility] Monocyte abs 0.5 0.2 - 0.8 K/cumm [facility] Eosinophil abs 0.1 0.0 - 0.5 K/cumm [facility] Basophil abs 0.0 0.0 - 0.1 K/cumm [facility] Neutrophil pct 68.2 % [facility] Comment: Interpretive Data Percent cell count reference ranges are not reported, since discordance with absolute values may lead to misinterpretation of CBC data. Current Interpretive Data was last revised on 2017. Imm gran pct 0.5 % [facility] Comment: Interpretive Data Percent cell count reference ranges are not reported, since discordance with absolute values may lead to misinterpretation of CBC data. Current Interpretive Data was last revised on 2017. Lymphocyte pct 22.6 % [facility] Comment: Interpretive Data Percent cell count reference ranges are not reported, since discordance with absolute values may lead to misinterpretation of CBC data. Current Interpretive Data was last revised on 2017. Monocyte pct 6.8 % [facility] Comment: Interpretive Data Percent cell count reference ranges are not reported, since discordance with absolute values may lead to misinterpretation of CBC data. Current Interpretive Data was last revised on 2017. Eosinophil pct 1.8 % [facility] Comment: Interpretive Data Percent cell count reference ranges are not reported, since discordance with absolute values may lead to misinterpretation of CBC data. Current Interpretive Data was last revised on 2017. Basophil pct 0.1 % [facility] Comment: Interpretive Data Percent cell count reference ranges are not reported, since discordance with absolute values may lead to misinterpretation of CBC data. Current Interpretive Data was last revised on 2017. Blood 05/30/2024 4:44 AM CDT 05/30/2024 5:30 AM CDT us Patricia Davidson MD PhD LAB BLOOD ORDERABLES Final Result [facility] Department [place] [address] * Tacrolimus level trough (05/30/2024 4:44 AM CDT) Tacrolimus trough 16.5 ng/mL Comment: Interpretive Data Testing performed by liquid chromatography-tandem mass spectrometry. Therapeutic concentrations vary depending on type of transplanted organ and time elapsed since transplant. Typical trough concentrations range from 5-15 ng/mL. This test was developed and its performance characteristics determined by the [facility] consistent with CLIA requirements. This test has not been cleared or approved by the [place] Food and Drug administration. Current interpretive data last reviewed 2019. Blood 05/30/2024 4:44 AM CDT 05/30/2024 5:30 AM CDT Patricia Davidson MD PhD LAB BLOOD ORDERABLES Final Result Performing Organization Address City/[facility]/ZIP Co de Phone Number [facility] [place] [address] * (ABNORMAL) CBC with auto differential (05/30/2024 4:44 AM CDT) Pathologist [facility] WBC 7.4 3.8 - 9.9 K/cumm Hgb 12.0 11.9 - 15.5 g/dL [facility] Hct 33.9(L) 35.6 - 45.5 % [facility] Plt 130(L) 150 - 400 K/cumm [facility] MPV 10.8 9.1 - 12.3 fL [facility] RBC 3.40(L) 3.90 - 5.20 M/cumm [facility] MCV 99.7(H) 81.3 - 96.4 fL [facility] MCH 35.3(H) 27.1 - 33.3 pg [facility] MCHC 35.4 32.3 - 35.7 g/dL [facility] RDW CV 13.0 11.1 - 14.9 % [facility] RDW SD 47.4 35.7 - 48.1 fL [facility] NRBC abs 0.00 0.00 - 0.01 K/cumm [facility] Blood 05/30/2024 4:44 AM CDT 05/30/2024 5:30 AM CDT Patricia Davidson MD PhD LAB BLOOD ORDERABLES Final Result Performing Organization Address City/[facility]/ZIP Co de Phone Number [facility] Department [place] [address] * (ABNORMAL) Renal function panel (05/30/2024 4:44 AM CDT) [facility] Sodium 142 135 - 145 mmol/L Potassium, pl 4.2 3.3 - 4.9 mmol/L [facility] Chloride 108 97 - 110 mmol/L [facility] CO2 25 22 - 32 mmol/L [facility] Anion gap 9 2 - 15 mmol/L [facility] BUN 23 6 - 25 mg/dL [facility] Creatinine 2.76(H) 0.60 - 1.10 mg/dL [facility] Glucose 123 70 - 199 mg/dL [facility] Comment: Interpretive Data Fasting glucose >/= [...] Calcium 9.1 8.5 - 10.3 mg/dL [facility] Phosphorus, pl 3.6 2.3 - 4.5 mg/dL [facility] Albumin 3.8 3.5 - 5.0 g/dL [facility] Blood 05/30/2024 4:44 AM CDT 05/30/2024 5:31 AM CDT us Patricia Davidson MD PhD LAB BLOOD ORDERABLES Final Result [facility] [place] [address] * HLA Donor Specific Antibody Report (05/30/2024 [...] Narrative [facility] - 05/31/2024 11:29 AM CDT Patircia Davidson MD PhD LAB BLOOD ORDERABLES Final Result [facility] * ECG 12 lead (05/30/2024 1:10 AM CDT) Ventricular Rate EKG/Min 75 BPM [facility] Atrial Rate 75 BPM [facility] NM-Interval (MSEC) 160 ms [facility] QRS-Interval (MSEC) 82 ms [facility] QT-Interval (MSEC) 456 ms [facility] QTc 509 ms [facility] P [place] 31 degrees [facility] R [place] -9 degrees [facility] T [place] 44 degrees [facility] Diagnosis Normal sinus rhythm Poor r wave progression associated with abnormal lead placement, obesity, pulmonary disease, anterior infarction. Prolonged QT Abnormal ECG When compared with ECG of 20-APR-2020 11:02, QRS voltage has increased Confirmed by BRODIE LEIGH M.D ([id number]) on 05/30/2024 12:29:55 PM [facility] 05/30/2024 1:10 AM CDT 05/30/2024 12:29 PM CDT Patricia Davidson MD PhD ECG ORDERABLES Final Resul t [facility] [employer] [facility] * US Renal Transplant W Dopplers [...] COVID-19 PCR Nasopharyngeal (05/29/2024 4:10 PM CDT) [facility] COVID-19 RNA Negative Negative [facility] Influenza A RNA Negative Negative [facility] Influenza B RNA Negative Negative [facility] RSV RNA Negative Negative [facility] Comment: Interpretive data: Testing performed by [facility] ([phone]). This test is performed using the [employer] Xpert Xpress CoV-2/Flu/RSV plus assay. This is a multiplex, real-time reverse transcriptase PCR assay intended for the qualitative detection of nucleic acid from SARS-CoV-2, influenza A, influenza B, and respiratory syncytial virus. This assay has been cleared by the [place] Food and Drug administration. The performance characteristics have been verified by the [facility]. Results must be considered in the clinical context, and a negative result does not rule out infection. Interpretive Data last revised 2023 Nasopharyngeal 05/29/2024 4: 10 PM CDT 05/29/2024 5:03 PM CDT Narrative [facility] - 05/29/2024 5:51 PM CDT Is the Patient experiencing symptoms consistent with COVID?->Unknown us Mona Barrios MD LAB MICROBIOLOGY - GEN ERAL ORDERABLES Final Result [facility] Department [place] [address] [facility] * Respiratory pathogen panel Nasopharyngeal (05/29/2024 4:10 PM CDT) Pathologist [facility] Influenza A RNA Not Detected Not Detected Influenza B RNA Not Detected Not Detected [facility] RSV RNA Not Detected Not Detected [facility] COVID-19 RNA Not Detected Not Detected [facility] Coronavirus 229E RNA Not Detected Not Detected [facility] Coronavirus HKU1 RNA Not Detected Not Detected [facility] Coronavirus NL63 RNA Not Detected Not Detected [facility] Coronavirus OC43 RNA Not Detected Not Detected [facility] Adenovirus DNA Not Detected Not Detected [facility] Metapneumovirus RNA Not Detected Not Detected [facility] Rhinovirus/Enterov irus RNA Not Detected Not Detected [facility] Parainfluenza 1 RNA Not Detected Not Detected [facility] Parainfluenza 2 RNA Not Detected Not Detected [facility] Parainfluenza 3 RNA Not Detected Not Detected [facility] Parainfluenza 4 RNA Not Detected Not Detected [facility] B. pertussis DNA Not Detected Not Detected [facility] B. parapertussis DNA Not Detected Not Detected [facility] C. pneumoniae DNA Not Detected Not Detected [facility] M. pneumoniae DNA Not Detected Not Detected [facility] Nasopharyngeal 05/29/2024 4: 10 PM CDT 05/30/2024 6:07 AM CDT Narrative [facility] - 05/30/2024 7:05 AM CDT Interpretive Data [employer] Film[employer] Respiratory Panel (RP2.1) assay is a [...] assay has FDA clearance for testing of [employer] swabs. The performance of additional specimen types has been assessed by the performing laboratory. The performance characteristics of this assay have been determined by [facility]. Current interpretive data was last revised on 21. Pineda Barrios MD LAB MICROBIOLO GY - GENERAL ORDERABLES Final Result [facility] Department [place] [address] * Urinalysis reflex to microscopic (05/29/2024 3:31 PM CDT) Color, ur Yellow Yellow Clarity, ur Clear Clear [facility] Specific gravity, ur 1.013 1.003 - 1.030 [facility] pH, urine 5.5 [facility] Comment: Interpretive Data U rine pH is affected by diet, medications, systemic acid-base disturbances, and renal tubular function. pH may affect urinary stone formation. For example, urine pH below 6.0 may help reduce the tendency for calcium phosphate stones and pH greater than 6.0 may reduce the tendency for uric acid stone formation. Source: [facility] Current Interpretive Data was last revised on 2017 Protein, ur ql Trace Negative [facility] Glucose, ur ql Negative Negative [facility] Ketones, ur Negative Negative [facility] Bilirubin, ur Negative Negative [facility] Blood, ur Negative Negative [facility] Urobilinogen, ur <2.0 <2.0 mg/dL [facility] Nitrite, ur Negative Negative [facility] Leukocyte esterase, ur Negative Negative [facility] UA reflex comment Reflex conditions for microscopic UA not met. [facility] Urine 05/29/2024 3:31 PM CDT 05/29/2024 3:38 PM CDT Shruti Damon MD LAB URINE ORDERABLES Aniya l Result Performing Organization Address City/[facility] Co de Phone Number [facility] Department [place] [address] * POCT hCG, urine (05/29/2024 3:30 PM CDT) Pathologist [facility] HCG, ur, POC Negative Negative Lot Number [id number] QC Backgroud Clear Acceptable QC Control Line Acceptable Urine 05/29/2024 3:30 PM CDT Shruti Damon MD POINT OF CARE TEST ORDERA BLES Final Result * POCT lactate (05/29/2024 3:02 PM CDT) Pathologist [facility] Lactate POC i-STAT 1.9 0.7 - 2.0 mmol/L Blood 05/29/2024 3:02 PM CDT 05/29/2024 3:02 PM CDT Notinfile Unknown LAB POCT ORDERABLES - DEVICE F inal Result Performing Organization Address City/[facility] de Phone Number [facility] Department [place] [address] * (ABNORMAL) eGFR (05/29/2024 2:57 PM CDT) Pathologist [facility] eGFR 30(L) >=60 mL/min/1. 73 m2 [...] ORDERABLES Aniya l Result Performing Organization Address [facility] Co de Phone Number [facility] [place] [address] * Differential, auto (05/29/2024 2:57 PM CDT) [facility] Neutrophil abs 5.5 1.5 - 6.5 K/cumm Imm gran abs 0.0 0.0 - 0.1 K/cumm [facility] Lymphocyte abs 0.9 0.8 - 3.3 K/cumm [facility] Monocyte abs 0.4 0.2 - 0.8 K/cumm [facility] Eosinophil abs 0.1 0.0 - 0.5 K/cumm [facility] Basophil abs 0.0 0.0 - 0.1 K/cumm [facility] Neutrophil pct 79.6 % [facility] Comment: Interpretive Data Percent cell count reference ranges are not reported, since discordance with absolute values may lead to misinterpretation of CBC data. Current Interpretive Data was last revised on 2017. Imm gran pct 0.4 % [facility] Comment: Interpretive Data Percent cell count reference ranges are not reported, since discordance with absolute values may lead to misinterpretation of CBC data. Current Interpretive Data was last revised on 2017. Lymphocyte pct 13.7 % [facility] Comment: Interpretive Data Percent cell count reference ranges are not reported, since discordance with absolute values may lead to misinterpretation of CBC data. Current Interpretive Data was last revised on 2017. Monocyte pct 5.5 % [facility] Comment: Interpretive Data Percent cell count reference ranges are not reported, since discordance with absolute values may lead to misinterpretation of CBC data. Current Interpretive Data was last revised on 2017. Eosinophil pct 0.7 % [facility] Comment: Interpretive Data Percent cell count reference ranges are not reported, since discordance with absolute values may lead to misinterpretation of CBC data. Current Interpretive Data was last revised on 2017. Basophil pct 0.1 % [facility] Comment: Interpretive Data Percent cell count reference ranges are not reported, since discordance with absolute values may lead to misinterpretation of CBC data. Current Interpretive Data was last revised on 2017. Blood 05/29/2024 2:57 PM CDT 05/29/2024 3:21 PM CDT us Shruti Damon MD LAB BLOOD ORDERABLES Aniya maguire Result [facility] Department [place] [address] * (ABNORMAL) CBC with auto differential (05/29/2024 2:57 PM CDT) WBC 6.9 3.8 - 9.9 K/cumm Hgb 13.5 11.9 - 15.5 g/dL [facility] Hct 38.8 35.6 - 45.5 % [facility] Plt 129(L) 150 - 400 K/cumm [facility] MPV 10.7 9.1 - 12.3 fL [facility] RBC 3.88(L) 3.90 - 5.20 M/cumm [facility] MCV 100.0(H) 81.3 - 96.4 fL [facility] MCH 34.8(H) 27.1 - 33.3 pg [facility] MCHC 34.8 32.3 - 35.7 g/dL [facility] RDW CV 13.0 11.1 - 14.9 % [facility] RDW SD 47.6 35.7 - 48.1 fL [facility] NRBC abs 0.00 0.00 - 0.01 K/cumm [facility] Blood Venous blood specimen / Unknown 05/29/2024 2:57 PM CDT 05/29/2024 3:21 PM CDT Shruti Damon MD LAB BLOOD ORDERABLES Aniya maguire Result [facility] [place] [address] * Tacrolimus level random (05/29/2024 2:57 PM CDT) Pathologist [facility] Tacrolimus random 20.2 ng/mL Comment: Interpretive Data Testing performed by liquid chromatography-tandem mass spectrometry. Therapeutic concentrations vary depending on type of transplanted organ and time elapsed since transplant. Typical trough concentrations range from 5-15 ng/mL. This test was developed and its performance characteristics determined by the [facility] consistent with CLIA requirements. This test has not been cleared or approved by the [place] Food and Drug administration. Current interpretive data last reviewed 2019. Blood 05/29/2024 2:57 PM CDT 05/29/2024 3:28 PM CDT Pineda Barrios MD LAB BLOOD ORDE RABLES Final Result Performing Organization Address City/[facility]/ZIP Co de Phone Number [facility] [place] [address] * Lipase (05/29/2024 2:57 PM CDT) Pathologist [facility] Lipase 12 10 - 99 Units/L Blood Venous blood specimen / Unknown 05/29/2024 2:57 PM CDT 05/29/2024 3:20 PM CDT Shruti Damon MD LAB BLOOD ORDERABLES Aniya l Result Performing Organization Address [facility] Co de Phone Number [facility] [place] [address] * (ABNORMAL) Comprehensive metabolic panel (05/29/2024 2:57 PM CDT) [facility] Sodium 137 135 - 145 mmol/L Potassium, pl 4.6 3.3 - 4.9 mmol/L [facility] Chloride 107 97 - 110 mmol/L [facility] CO2 18(L) 22 - 32 mmol/L [facility] Anion gap 12 2 - 15 mmol/L [facility] BUN 22 6 - 25 mg/dL [facility] Creatinine 2.10(H) 0.60 - 1.10 mg/dL [facility] Glucose 185 70 - 199 mg/dL [facility] Comment: Interpretive Data Fasting glucose >/= [...] Calcium 9.9 8.5 - 10.3 mg/dL [facility] Bilirubin, total 0.8 0.1 - 1.2 mg/dL [facility] Protein, pl 7.6 6.5 - 8.5 g/dL [facility] Albumin 4.0 3.5 - 5.0 g/dL [facility] Alk phos 372(H) 40 - 130 Units/L [facility] ALT 22 7 - 45 Units/L [facility] AST 28 10 - 45 Units/L [facility] Blood 05/29/2024 2:57 PM CDT 05/29/2024 3:20 PM CDT us Shruti Damon MD LAB BLOOD ORDERABLES Aniya l Result Performing Organization Address City/[facility]/ZIP Co de Phone Number [facility] [place] [address] * Hepatitis panel, acute (04/16/2020 6:35 AM BULK PICKER) Hep A IgM Nonreactive Nonreactive [facility] Comment: Interpretive Data: If Hep A IgM Ab is reported as Equivocal, a new sample should be drawn in two weeks for testing. Current interpretive data was last revised on 19. Hep B core IgM Nonreactive Nonreactive [facility] Comment: Interpretive Data If HepB Core IgM Ab is reported as Equivocal, a new sample should be drawn in two weeks for testing. Current interpretive data was last revised on 19. Hep C Ab Nonreactive Nonreactive [facility] Comment:Antibodies to HCV no t detected. Does NOT exclude the possibility of recent exposure to HCV. HepBsAg Nonreactive Nonreactive [facility] Blood specimen (specimen) 04/16/2020 6:35 AM BULK PICKER 04/16/2020 7:34 AM BULK PICKER us Jacob Gates MD LAB MICROBIOLOGY - GENER AL ORDERABLES Final Result Performing Organization Address City/[facility]/ZIP Co de Phone Number [facility] [place], [place] [id number] from Last 3 Months or Most Recently Relevant to Health Maintenance Insurance [employer] OPEN ACCESS [employer] [facility] [employer] OPEN ACCESS [employer] [facility] EXCHANGE [employer] [facility] EXCHANGE Advance Directives For more information, please contact: [phone] * Full Code (Latest Code Status on File) Date Activated Date Inactivated Comments 05/29/2024 10:30 PM 06/13/2024 7:10 PM * Full Code Date Activated Date Inactivated Comments 04/16/2020 1:16 AM 04/23/2020 6:51 PM * Full Code Date Activated Date Inactivated Comments 08/14/2019 3:14 PM 08/14/2019 9:26 PM * Full Code Date Activated Date Inactivated Comments 07/25/2019 6:15 AM 07/25/2019 11:51 PM Care Teams Housecalls Nurse Relationship Specialty Start Date End Date Lyly Fiore NP [address] [place] [address] PCP - General Nurse Practitioner 05/29/24 Beatriz Lee MD [address] [place] [address] Referring Physician Gastroenterology 07/25/19 Taylor Kitchen, classroom paraprofessionalSwitchboard Installer 05/29/24
--- OUTSIDE RECORDS SUMMARY | 2024-07-24 15:17 | XMS_ITS ---
Author Organization [facility] Address [address] [place] [address] Care Team Providers Care Certification Technician Name Role Phone Beatriz Lee MD Unavailable [phone] Lyly Fiore NP Primary Care Provider Taylor Kitchen RN Unavailable Unav ailable Transplant Episode Liver Recipient [facility] ([place], [place]) - [facility] Transplanted on 05/09/2020 Marked as Active Follow-up on 07/01/2024 Reason: In Transition Process Liver CoordinatorMargusebas Kitchen RN Phone: N/A Fax: N/A Email: N/A Transplanted Elsewhere: [facility] ([place], [place]) - [facility] Coordinator: Phone: Fax: [place] Organ Diagnosis Organ Primary Contributory Liver Biliary Atresia: Extrahepatic Care Team Name Role Phone Fax Email Taylor Kitchen RN Liver Coordinator N/A N /A N/A Events Post-Transplant Pre-Transplant Transplanted: 05/09/2020 Appointments (06/24/2024 - 08/24/2024) When With Visit Type Description 06/26/2024 Transplant - Juan J Lee New Nicotine dependence with current use
--- OUTSIDE RECORDS SUMMARY | 2024-07-24 15:17 | XMS_ITS | Encounter Summary ---
Author Organization [facility] Address [address] [place] [address] Care Team Providers Care Manager Warehouse Name Role Phone Ashley ZUNIGA MD, Hermes Primary Care Provid er Lyly Fiore NP Primary Care Provider Encounter Details Date Type Department Care Team (Late st Contact Info) Description 08/25/2018 Abstract [facility] [address] [place] [address] , Generic Conversion, Social History Tobacco Use Types Packs/Day Years Used Date Smoking Tobacco: Every Day Cigarettes 0.5 15 Smokeless Tobacco: Never Alcohol Use Standard Drinks/Week Comments No 0 (1 standard drink = 0.6 oz pur e alcohol) Comments No Sex and Gender Information Value Date Recorded Sex Assigned at Female 04/05/2024 4:26 PM SHEAR TENDER Legal Sex Female 9:15 PM SHEAR TENDER Gender Identity Not on file Sexual Orientation Not on file documented as of this encounter Plan of Treatment Not on file documented as of this encounter Visit Diagnoses Not on filedocumented in this encounter Additional Health Concerns Infection Onset Date Last Indicated Resolved Time COVID-19 Rule Out 03/30/2020 03/30/2020 03/30/2020 9:29 PM SHEAR TENDER COVID-19 Rule Out 03/30/2020 03/30/2020 03/31/2020 12:28 PM SHEAR TENDER COVID-19 Rule Out 02/16/2024 02/16/2024 02/16/2024 9:16 PM SHEAR TENDER Rhinovirus 02/16/2024 02/16/2024 02/26/2024 12:3 2 AM SHEAR TENDER documented as of this encounter Care Teams Manager Warehouse Relationship Specialty Start Date End Date Hermes Ramirez III, MD [address] [address] PCP - General FAMILY PRACTICE 06/20/17 04/13/24 Lyly Fiore NP [address] [place] [address] PCP - General NURSE PRACTITIONER 04/14/24 documented as of this encounter
--- OUTSIDE RECORDS SUMMARY | 2024-07-24 15:17 | XMS_ITS | Continuity of Care Document ---
Author Organization [facility] Address [address] [place] [address] Phone Care Team Providers Care Quality Assurance Associate Name Role Phone Santana Timmons MD Unavailable Unavailable Procedures Procedure Date Subsequent Hospital Care Initial Inpatient Consult Advance Directives Directive Yes / No Effective Date File Name No Information Encounters Encounter Description Practice Location Reason(s) For Visit Diagnoses Date Provider Providers Copied on Encounter Subsequent Hospital Care [facility], [address] [place] [address], [id number], tel:[phone] [facility] No Information 1 Shanelle Dillon. [address] [place] [address], [id number], [place]. tel:[phone] Referring Provider: Hermes Ramirez , [address] [place] [address], [id number]. tel:[phone] Initial Inpatient Consult [facility], [address] [place] [address], [id number], tel:[phone] [facility] No Information Shanelle Dillon. [address] [place] [address], [id number], . tel:[phone] Referring Provider: Hermes Ramirez [address], [address]. tel:[phone] Family History Family Member Type Diagnosis Age At Onset No Information Payers Payer name Insurance type Covered republican ID Authoriza tiyoan(s) [facility] [id number] Social History Type Description Quantity Date Captured Comments Sex Female Smoking Status No Information Chief Complaint And Reason For Visit No Information History Of Present Illness Encounter Date Complaint History Of Prese nt Illness No Information Instructions Date Instruction Additional Infor mation No Information Assessments Type Assessment Date No Information
--- OUTSIDE RECORDS SUMMARY | 2024-07-24 15:17 | XMS_ITS | Encounter Summary ---
Author Organization [facility] Address [address] [place] [address] Care Team Providers Care Fence Installer Helper Name Role Phone Ashley ZUNIGA MD, Hermes Perez Primary Care Provid er Lyly Fiore NP Primary Care Provider [phone] Encounter Details Date Type Department Care Team (Late st Contact Info) Description 08/22/2018 Abstract [facility] [address] [place] [id number] Social History Tobacco Use Types Packs/Day Years Used Date Smoking Tobacco: Every Day Cigarettes 0.5 15 Smokeless Tobacco: Never Alcohol Use Standard Drinks/Week Comments No 0 (1 standard drink = 0.6 oz pur e alcohol) Comments No Sex and Gender Information Value Date Recorded Sex Assigned at Female 04/05/2024 4:26 PM HELPDESK TECHNICIAN Legal Sex Female 9:15 PM HELPDESK TECHNICIAN Gender Identity Not on file Sexual Orientation Not on file documented as of this encounter Plan of Treatment Not on file documented as of this encounter Visit Diagnoses Not on filedocumented in this encounter Additional Health Concerns Infection Onset Date Last Indicated Resolved Time COVID-19 Rule Out 03/30/2020 03/30/2020 03/30/2020 9:29 PM HELPDESK TECHNICIAN COVID-19 Rule Out 03/30/2020 03/30/2020 03/31/2020 12:28 PM HELPDESK TECHNICIAN COVID-19 Rule Out 02/16/2024 02/16/2024 02/16/2024 9:16 PM HELPDESK TECHNICIAN Rhinovirus 02/16/2024 02/16/2024 02/26/2024 12:3 2 AM HELPDESK TECHNICIAN documented as of this encounter Care Teams Fence Installer Helper Relationship Specialty Start Date End Date Hermes Ramirez III, MD [address] [facility] [address] [place] [address] PCP - General FAMILY PRACTICE 06/20/17 04/13/24 Lyly Fiore NP [address] [place] [address] PCP - General NURSE PRACTITIONER 04/14/24 documented as of this encounter
--- OUTSIDE RECORDS SUMMARY | 2024-07-24 15:17 | XMS_ITS | Referral Summary ---
Author Organization [facility] Advanced [facility] Address [address] [place] [address] Care Team Providers Care Brown Sourer Name Role Phone Beatriz Lee MD Unavailable [phone] Lyly Fiore NP Primary Care Provider Taylor Kitchen RN Unavailable Unav ailable Encounters Date Type Department Care Team Description 07/24/2024 Telephone [facility] Transplant Liver [address] [facility] [address] Mailstop [phone] [place] [address] Lorena Turner 07/24/2024 9:45 AM CDT Hospital Encounter [facility] ([facility]) [address] [place] [address] Jessee Morton MD Lumbar spine pain; Adolescent idiopathic scoliosis of thoracic region 07/24/2024 10:00 AM CDT Office Visit [facility] Orthopaedic Surgery [address] [facility] 6th [place] [address] [place] [address] Jessee Morton MD Lumbar spine pain (Primary Dx); Adolescent idiopathic scoliosis of thoracic region; Chronic bilateral low back pain without sciatica 07/22/2024 Telephone [facility] Transplant Liver [address] [facility] [address] Mailstop [phone] [place] [address] Dafne Dukes RN 07/19/2024 Telephone [facility] Transplant Liver [address] [facility] [address] Mailstop [phone] [place] [address] Karmen Garsia RN After Hours; Abdominal Pain 07/17/[address] [facility] [address] [facility] [address] Mailstop -[phone] [place] [address] Lorena Turner 07/12/2024 5:48 PM CDT - 07/12/2024 11:59 PM CDT Hospital Encounter [facility] ([facility]) [address] [place] [address] Discharge Disposition: Discharge to home or self care 07/12/2024 5:46 PM CDT - 07/12/2024 11:59 PM CDT Hospital Encounter [facility] ([facility]) [address] [place] [address] Discharge Disposition: Discharge to home or self care 07/12/2024 5:44 PM CDT - 07/12/2024 11:59 PM CDT Hospital Encounter [facility] ([facility]) [address] [place] [address] Discharge Disposition: Discharge to home or self care 07/12/2024 5:43 PM CDT - 07/12/2024 11:59 PM CDT Hospital Encounter [facility] ([facility]) [address] [place] [address] Discharge Disposition: Discharge to home or self care 07/12/[address] [facility] Nephrology [address] [facility] 5th [place] [address] [place] [address] Wilson Swift MD 07/11/[address] [facility] [address] [facility] [address] Mailstop -83-105 [place] [address] Dafne Dukes RN 07/11/[address] [facility] [address] [facility] [address] Mailstop [phone] [place] [address] Yulisa Welch 07/10/[address] [facility] [address] [facility] [address] Mailstop [phone] [place] [address] Liyah Kamara 07/09/[address] [facility] [address] [facility] [address] Mailstop 9029-007 [place] [address] Dafne Dukes RN 07/09/[address] [facility] [address] [facility] [address] Mailstop [phone] [place] [address] Yulisa Welch 07/09/2024 8:48 AM CDT - 07/09/2024 11:59 PM CDT Hospital Encounter [facility] ([facility]) [address] [place] [address] Discharge Disposition: Discharge to home or self care 07/09/2024 8:46 AM CDT - 07/09/2024 11:59 PM CDT Hospital Encounter [facility] ([facility]) [address] [place] [address] Discharge Disposition: Discharge to home or self care 07/09/2024 8:44 AM CDT - 07/09/2024 11:59 PM CDT Hospital Encounter [facility] ([facility]) [address] [place] [address] Discharge Disposition: Discharge to home or self care 07/04/[address] [facility] [address] [facility] [address] Mailstop [phone] [place] [address] Lorena Turner 07/04/[address] [facility] [address] [facility] [address] Mailstop 9029-288 [place] [address] Lorena Turner 07/03/[address] [facility] [address] [facility] [address] [place] [address] Dafne Dukes, ANSON 07/02/2024 Telephone [facility] Transplant Liver [address] [place], [place] [address] [place] [address] Dafne Dukes, ANSON 07/02/[address] [facility] Liver [address] [place], [place] [address] [place] [address] Dafne Dukes, ANSON 06/26/2024 Orders Only [facility] [address] [place], [place] [address] [place] [address] Dafne Dukes, ANSON Status post liver transplant (HCC) (Primary Dx); Encounter for long-term (current) use of medications 06/26/2024 Telephone [facility] Transplant Liver [address] [place], [place] [address] [place] [address] Lorena Turner 06/26/2024 Orders Only [facility] Transplant Liver [address] [place], [place] [phone] [place] [address] Dafne Dukes, ANSON History of liver transplant (HCC) (Primary Dx); Encounter for long-term (current) use of medications 06/26/[address] [facility] Liver [address] [place], [place] [address] [place] [address] Dafne Dukes, ANSON 06/26/2024 Telephone [facility] Transplant Liver [address] [place], [place] [address] [place] [address] Dafne Dukes, ANSON 06/26/2024 9:30 AM CDT Office Visit [facility] Gasteroenterology [address] [facility] 12th [place] [address] [place] [address] Beatriz Lee MD Nicotine dependence with current use 06/14/2024 SHOP/CHAP Initial Eligibility Review [facility] OP CASE MANAGEMENT [address] [place] [address] Shireen Griffin RN 06/13/2024 Orders Only 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ney [address] [facility] [address] Mailstop [phone] [place] [address] Netta Mcintosh 05/09/[address] [facility] [address] [facility] [address] Mailstop 34-87-351 [place] [address] Liyah Kamara 05/07/[address] [facility] [address] [facility] [address] Mailstop 90-49-563 [place] [address] Lorena Turner 05/07/[address] [facility] [address] [facility] [address] Mailstop 61-41-224 [place] [address] Lorena Turner 05/06/[address] [facility] [address] [facility] [address] Mailstop 36-01-561 [place] [address] Taylor Kitchen RN 05/06/[address] [facility] [address] [facility] [address] Mailstop [phone] [place] [address] Lorena Turner Referral - Liver Txp from [...] t be different from the original. Lab: [facility]. . . Pharmacy: [place], [place] Patient enrolled in [employer] assistance program [...] Transplant starting process of assuming care from [place], but in short term they recommend patient follow up with renal transplant at [facility]. - She is NOW actively enrolled in the [employer] free patient assistance program through mar 2025 - script needs to be sent to [facility] (sent). Hyperbilirubinemia 04/16/2020 Assessment & Plan (04/16/2020 5:01 AM CLOTHING SUPERVISOR): - T. Bili of 7 (last was [...] 07/25/2019 Assessment & Plan (04/16/2020 2:25 AM CLOTHING SUPERVISOR): See hyperbili problem. Concern for ascites Assessment [...] 12/14/2016 Assessment & Plan (04/16/2020 2:26 AM CLOTHING SUPERVISOR): - Chronic, concerned that this may be [...] liver and kidney transplant 04/2020. 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 We would need to call [facility] to identify a contracted center ([phone]). She lives close enough to [place] that would be the most likely city she could travel to. She also noted that she could always remarry an ex- as he has insurance that may be covered at [facility]. Appreciate note from nephrology and agree with restarting oral diuretics. Can continue tacrolimus at the current dose. MRI/MRCP completed and will review with radiology to identify if any role for PTC. Assessment & Plan (04/16/2020 2:26 AM CLOTHING SUPERVISOR): S/p liver tranplant in 1992 for biliary [...] meds Assessment & Plan (04/16/2020 5:01 AM CLOTHING SUPERVISOR): Unclear if progression of CKD vs acute [...] Cr of 1.8. She follows with local [facility]. Mathew and thinks her baseline is 2.1. She was at 2.3 at OSH. She took some diuretics at home and was given lasix at OSH ED. --UA, urine lytes --get records from her [facility] to find out baseline --random tacro level [...] on file Legal Sex Female 10:10 PM CLOTHING SUPERVISOR Gender Identity Not on file Sexual [...] CDT HEPATITIS PANEL, ACUTE Routine 6:35 AM CLOTHING SUPERVISOR from Last 3 Months or Most Recently [...] only and have not been reviewed by [facility] Radiology. There will be no report generated by a [facility] Radiologist. Narrative RAD_PACS_[facility] - 07/12/2024 5:48 PM CDT EXAMINATION: Images For Reference Purposes Only Result [facility] Jessee Morton MD IMG CT PROCEDURES Final Re sult Performing Organization Address [facility] de Phone Number [email or web address] * Neuro CT Outside Reference (07/12/2024 5:46 PM CDT) Impressions RAD_PACS[facility] - 07/12/2024 5:46 PM CDT These images are for Reference purposes only and have not been reviewed by [facility]iology. There will be no report generated by a [facility] Radiologist. Narrative RAD_PACS_[facility] - 07/12/2024 5:46 PM CDT EXAMINATION: Images For Reference Purposes Only Jessee Morton MD IMG CT PROCEDURES Final Re sult Performing Organization Address [facility] Co de Phone Number [email or web address] * Neuro MR Outside Reference (07/12/2024 5:44 PM CDT) Impressions [facility] - 07/12/2024 5:44 PM CDT These images are for Reference purposes only and have not been reviewed by [facility]. There will be no report generated by a [facility] Radiologist. Narrative [facility] - 07/12/2024 5:44 PM CDT EXAMINATION: Images For Reference Purposes Only Jessee Morton MD IMG MRI PROCEDURES Final R esult Performing Organization Address [facility] de Phone Number [email or web address] * Neuro MR Outside Reference (07/12/2024 5:43 PM CDT) Impressions [email or web address] - 07/12/2024 5:43 PM CDT These images are for Reference purposes only and have not been reviewed by [facility] Radiology. There will be no report generated by a [facility] Radiologist. Narrative [facility] - 07/12/2024 5:43 PM CDT EXAMINATION: Images For Reference Purposes Only Result [facility] Jessee Morton MD IMG MRI PROCEDURES Final R esult Performing Organization Address [facility] de Phone Number [email or web address] * XR Outside Reference (07/09/2024 8:48 AM CDT) Impressions [facility] - 07/09/2024 8:48 AM CDT These images are for Reference purposes only and have not been reviewed by [facility] Radiology. There will be no report generated by a [facility] Radiologist. Narrative [facility] - 07/09/2024 8:48 AM CDT EXAMINATION: Images For Reference Purposes Only Jessee Morton MD IMG XR PROCEDURES Final Re sult Performing Organization Address [facility] de Phone Number [email or web address] * XR Outside Reference (07/09/2024 8:46 AM CDT) Impressions [facility] - 07/09/2024 8:46 AM CDT These images are for Reference purposes only and have not been reviewed by [facility]. There will be no report generated by a [facility] Radiologist. Narrative [facility] - 07/09/2024 8:46 AM CDT EXAMINATION: Images For Reference Purposes Only Jessee Morton MD IMG XR PROCEDURES Final Re sult Performing Organization Address [facility]/ZIP Co de Phone Number [email or web address] * XR Outside Reference (07/09/2024 8:44 AM CDT) Impressions [facility] - 07/09/2024 8:44 AM CDT These images are for Reference purposes only and have not been reviewed by [facility]iology. There will be no report generated by a [facility] Radiologist. Narrative [facility] - 07/09/2024 8:44 AM CDT EXAMINATION: Images For Reference Purposes Only Jessee Morton MD IMG XR PROCEDURES Final Re sult Performing Organization Address [facility] Co de Phone Number [email or web address] * (ABNORMAL) [...] MD PhD LAB BLOOD ORDERABLES Final Result [facility] Department [place] [address] * Differential, auto (06/13/2024 5:15 AM CDT) Neutrophil abs 3.2 1.5 - 6.5 K/cumm Imm gran abs 0.0 0.0 - 0.1 K/cumm [facility] Lymphocyte abs 0.9 0.8 - 3.3 K/cumm [facility] Monocyte abs 0.3 0.2 - 0.8 K/cumm [facility] Eosinophil abs 0.2 0.0 - 0.5 K/cumm [facility] Basophil abs 0.0 0.0 - 0.1 K/cumm [facility] Neutrophil pct 69.4 % [facility] Comment: Interpretive Data Percent cell count reference ranges are not reported, since discordance with absolute values may lead to misinterpretation of CBC data. Current Interpretive Data was last revised on 2017. Imm gran pct 0.2 % [facility] Comment: Interpretive Data Percent cell count reference ranges are not reported, since discordance with absolute values may lead to misinterpretation of CBC data. Current Interpretive Data was last revised on 2017. Lymphocyte pct 20.4 % [facility] Comment: Interpretive Data Percent cell count reference ranges are not reported, since discordance with absolute values may lead to misinterpretation of CBC data. Current Interpretive Data was last revised on 2017. Monocyte pct 5.9 % [facility] Comment: Interpretive Data Percent cell count reference ranges are not reported, since discordance with absolute values may lead to misinterpretation of CBC data. Current Interpretive Data was last revised on 2017. Eosinophil pct 3.9 % [facility] Comment: Interpretive Data Percent cell count reference ranges are not reported, since discordance with absolute values may lead to misinterpretation of CBC data. Current Interpretive Data was last revised on 2017. Basophil pct 0.2 % [facility] Comment: Interpretive Data Percent cell count reference ranges are not reported, since discordance with absolute values may lead to misinterpretation of CBC data. Current Interpretive Data was last revised on 2017. Blood 06/13/2024 5:15 AM CDT 06/13/2024 6:05 AM CDT Martha Butterfield MD LAB BLOOD ORDERABLES F inal Result Performing Organization Address [facility]/ZIP Co de Phone Number [facility] Department [place] [address] * Tacrolimus level trough (06/13/2024 5:15 AM CDT) [facility] Signature Tacrolimus trough 7.4 ng/mL Comment: Interpretive Data Testing performed by liquid chromatography-tandem mass spectrometry. Therapeutic concentrations vary depending on type of transplanted organ and time elapsed since transplant. Typical trough concentrations range from 5-15 ng/mL. This test was developed and its performance characteristics determined by the [facility] consistent with CLIA requirements. This test has not been cleared or approved by the [place] Food and Drug administration. Current interpretive data last reviewed 2019. Blood 06/13/2024 5:15 AM CDT 06/13/2024 6:05 AM CDT Patricia Davidson MD PhD LAB BLOOD ORDERABLES Final Result Performing Organization Address City/[facility]/ZIP Co de Phone Number [facility] [place] [address] * (ABNORMAL) CBC with auto differential (06/13/2024 5:15 AM CDT) [facility] WBC 4.6 3.8 - 9.9 K/cumm Hgb 11.1(L) 11.9 - 15.5 g/dL [facility] Hct 32.8(L) 35.6 - 45.5 % [facility] Plt 112(L) 150 - 400 K/cumm [facility] MPV 11.6 9.1 - 12.3 fL [facility] RBC 3.13(L) 3.90 - 5.20 M/cumm [facility] MCV 104.8(H) 81.3 - 96.4 fL [facility] MCH 35.5(H) 27.1 - 33.3 pg [facility] MCHC 33.8 32.3 - 35.7 g/dL [facility] RDW CV 14.8 11.1 - 14.9 % [facility] RDW SD 56.5(H) 35.7 - 48.1 fL [facility] NRBC abs 0.00 0.00 - 0.01 K/cumm [facility] Blood 06/13/2024 5:15 AM CDT 06/13/2024 6:05 AM CDT us Martha Butterfield MD LAB BLOOD ORDERABLES F inal Result [facility] Department [place] [address] * (ABNORMAL) Renal function panel (06/13/2024 5:15 AM CDT) [facility] Sodium 144 135 - 145 mmol/L Potassium, pl 4.9 3.3 - 4.9 mmol/L [facility] Chloride 111(H) 97 - 110 mmol/L [facility] CO2 25 22 - 32 mmol/L [facility] Anion gap 8 2 - 15 mmol/L [facility] BUN 27(H) 6 - 25 mg/dL [facility] Creatinine 2.03(H) 0.60 - 1.10 mg/dL [facility] Glucose 121 70 - 199 mg/dL [facility] Comment: Interpretive Data Fasting glucose [...] 2022. Calcium 8.6 8.5 - 10.3 mg/dL [facility] Phosphorus, pl 3.9 2.3 - 4.5 mg/dL [facility] Albumin 3.6 3.5 - 5.0 g/dL [facility] Blood 06/13/2024 5:15 AM CDT 06/13/2024 6:05 AM CDT us Patricia Davidson MD PhD LAB BLOOD ORDERABLES Final Result [facility] Department [place] [address] * (ABNORMAL) eGFR (06/12/2024 5:52 AM CDT) [...] BLOOD ORDERABLES Final Result Performing Organization Address [facility] Phone Number [facility] [place] [employer] [place] [address] * Tacrolimus level trough (06/12/2024 5:52 AM CDT) Pathologist [facility] Tacrolimus trough 6.2 ng/mL Comment: Interpretive Data Testing performed by liquid chromatography-tandem mass spectrometry. Therapeutic concentrations vary depending on type of transplanted organ and time elapsed since transplant. Typical trough concentrations range from 5-15 ng/mL. This test was developed and its performance characteristics determined by the [facility] consistent with CLIA requirements. This test has not been cleared or approved by the [place] Food and Drug administration. Current interpretive data last reviewed 2019. Blood 06/12/2024 5:52 AM CDT 06/12/2024 6:18 AM CDT Patricia Davidson MD PhD LAB BLOOD ORDERABLES Final Result Performing Organization Address [facility] [place] [address] * (ABNORMAL) Renal function panel (06/12/2024 5:52 AM CDT) Sodium 145 135 - 145 mmol/L Potassium, pl 5.0(H) 3.3 - 4.9 mmol/L [facility] Chloride 112(H) 97 - 110 mmol/L [facility] CO2 27 22 - 32 mmol/L [facility] Anion gap 6 2 - 15 mmol/L [facility] BUN 30(H) 6 - 25 mg/dL [facility] Creatinine 2.16(H) 0.60 - 1.10 mg/dL [facility] Glucose 101 70 - 199 mg/dL [facility] Comment: Interpretive Data Fasting glucose [...] 2022. Calcium 8.7 8.5 - 10.3 mg/dL [facility] Phosphorus, pl 4.3 2.3 - 4.5 mg/dL [facility] Albumin 3.4(L) 3.5 - 5.0 g/dL [facility] Blood 06/12/2024 5:52 AM CDT 06/12/2024 6:17 AM CDT us Patricia Davidson MD PhD LAB BLOOD ORDERABLES Final Result [facility] [place] [address] * Potassium, whole blood (06/11/2024 11:29 PM CDT) Pathologist [facility] Potassium, bld 4.7 3.3 - 4.9 mmol/L Blood 06/11/2024 11:2 9 PM CDT 06/11/2024 11:48 PM CDT us Patrick Hernandez MD LAB BLOOD ORDERABLES Fi nal Result [facility] Department [place] [address] * (ABNORMAL) eGFR (06/11/2024 5:14 AM CDT) Pathologist [facility] eGFR 28(L) >=60 mL/min/1. 73 m2 Comment: [...] MD PhD LAB BLOOD ORDERABLES Final Result [facility] Department [place] [address] * Differential, auto (06/11/2024 5:14 AM CDT) Pathologist [facility] Neutrophil abs 2.3 1.5 - 6.5 K/cumm Imm gran abs 0.0 0.0 - 0.1 K/cumm [facility] Lymphocyte abs 1.0 0.8 - 3.3 K/cumm [facility] Monocyte abs 0.3 0.2 - 0.8 K/cumm [facility] Eosinophil abs 0.2 0.0 - 0.5 K/cumm [facility] Basophil abs 0.0 0.0 - 0.1 K/cumm [facility] Neutrophil pct 61.8 % [facility] Comment: Interpretive Data Percent cell count reference ranges are not reported, since discordance with absolute values may lead to misinterpretation of CBC data. Current Interpretive Data was last revised on 2017. Imm gran pct 0.5 % [facility] Comment: Interpretive Data Percent cell count reference ranges are not reported, since discordance with absolute values may lead to misinterpretation of CBC data. Current Interpretive Data was last revised on 2017. Lymphocyte pct 26.6 % [facility] Comment: Interpretive Data Percent cell count reference ranges are not reported, since discordance with absolute values may lead to misinterpretation of CBC data. Current Interpretive Data was last revised on 2017. Monocyte pct 6.6 % [facility] Comment: Interpretive Data Percent cell count reference ranges are not reported, since discordance with absolute values may lead to misinterpretation of CBC data. Current Interpretive Data was last revised on 2017. Eosinophil pct 4.2 % [facility] Comment: Interpretive Data Percent cell count reference ranges are not reported, since discordance with absolute values may lead to misinterpretation of CBC data. Current Interpretive Data was last revised on 2017. Basophil pct 0.3 % [facility] Comment: Interpretive Data Percent cell count reference ranges are not reported, since discordance with absolute values may lead to misinterpretation of CBC data. Current Interpretive Data was last revised on 2017. Blood 06/11/2024 5:14 AM CDT 06/11/2024 6:24 AM CDT Martha Butterfield MD LAB BLOOD ORDERABLES F inal Result [facility] One [facility] Department [place] [address] * Tacrolimus level trough (06/11/2024 5:14 AM CDT) Tacrolimus trough 5.4 ng/mL Comment: Interpretive Data Testing performed by liquid chromatography-tandem mass spectrometry. Therapeutic concentrations vary depending on type of transplanted organ and time elapsed since transplant. Typical trough concentrations range from 5-15 ng/mL. This test was developed and its performance characteristics determined by the [facility] consistent with CLIA requirements. This test has not been cleared or approved by the US Food and Drug administration. Current interpretive data last reviewed 2019. Blood 06/11/2024 5:14 AM CDT 06/11/2024 5:51 AM CDT Patricia Davidson MD PhD LAB BLOOD ORDERABLES Final Result Performing Organization Address [facility] de Phone Number [facility] [place] [place] [address] * (ABNORMAL) CBC with auto differential (06/11/2024 5:14 AM CDT) Pathologist [facility] [place] WBC 3.8 3.8 - 9.9 K/cumm Hgb 10.3(L) 11.9 - 15.5 g/dL [facility] Hct 30.0(L) 35.6 - 45.5 % [facility] Plt 93(L) 150 - 400 K/cumm [facility] MPV 11.5 9.1 - 12.3 fL [facility] RBC 2.82(L) 3.90 - 5.20 M/cumm [facility] MCV 106.4(H) 81.3 - 96.4 fL [facility] MCH 36.5(H) 27.1 - 33.3 pg [facility] MCHC 34.3 32.3 - 35.7 g/dL [facility] RDW CV 14.5 11.1 - 14.9 % [facility] RDW SD 55.4(H) 35.7 - 48.1 fL [facility] NRBC abs 0.00 0.00 - 0.01 K/cumm [facility] Blood 06/11/2024 5:14 AM CDT 06/11/2024 6:24 AM CDT Martha Butterfield MD LAB BLOOD ORDERABLES F inal Result Performing Organization Address [facility] Co de Phone Number [facility] [place] [address] * (ABNORMAL) Renal function panel (06/11/2024 5:14 AM CDT) Sodium 141 135 - 145 mmol/L Potassium, pl 4.6 3.3 - 4.9 mmol/L [facility] Chloride 109 97 - 110 mmol/L [facility] CO2 23 22 - 32 mmol/L [facility] Anion gap 9 2 - 15 mmol/L [facility] BUN 29(H) 6 - 25 mg/dL [facility] Creatinine 2.24(H) 0.60 - 1.10 mg/dL [facility] Glucose 133 70 - 199 mg/dL [facility] Comment: Interpretive Data Fasting glucose [...] 2022. Calcium 8.6 8.5 - 10.3 mg/dL [facility] Phosphorus, pl 3.8 2.3 - 4.5 mg/dL [facility] Albumin 3.4(L) 3.5 - 5.0 g/dL [facility] Blood 06/11/2024 5:14 AM CDT 06/11/2024 5:51 AM CDT us Patricia Davidson MD PhD LAB BLOOD ORDERABLES Final Result [facility] [place] [address] * Potassium, whole blood (06/10/2024 10:18 PM CDT) Potassium, bld 4.7 3.3 - 4.9 mmol/L Blood 06/10/2024 10:1 8 PM CDT 06/10/2024 11:20 PM CDT Martha Butterfield MD LAB BLOOD ORDERABLES F inal Result Performing Organization Address [facility] [place] [address] * POCT glucose (06/10/2024 1:15 PM CDT) Glucose, POC 145 70 - 199 mg/dL Blood 06/10/2024 1:15 PM CDT 06/10/2024 1:15 PM CDT Martha Butterfield MD LAB POCT ORDERABLES - DEVICE Final Result Performing Organization Address [facility] [place] [address] * Potassium (06/10/2024 10:34 AM CDT) Potassium, pl 4.7 3.3 - 4.9 mmol/L Blood 06/10/2024 10:3 4 AM CDT 06/10/2024 11:28 AM CDT Martha Butterfield MD LAB BLOOD ORDERABLES F inal Result Performing Organization Address [facility] [place] [address] * (ABNORMAL) Hepatic function panel (06/10/2024 10:34 AM CDT) Bilirubin, total 0.7 0.1 - 1.2 mg/dL Bilirubin, direct 0.3 0.1 - 0.3 mg/dL [facility] Protein, pl 6.3(L) 6.5 - 8.5 g/dL [facility] Albumin 3.7 3.5 - 5.0 g/dL [facility] Alk phos 253(H) 40 - 130 Units/L [facility] ALT 23 7 - 45 Units/L [facility] AST 25 10 - 45 Units/L [facility] Blood 06/10/2024 10:3 4 AM CDT 06/10/2024 11:28 AM CDT Martha Butterfield MD LAB BLOOD ORDERABLES F inal Result Performing Organization Address City/[facility]/ZIP Co de Phone Number [facility] [address] * POCT glucose (06/10/2024 9:48 AM CDT) Glucose, POC 157 70 - 199 mg/dL Blood 06/10/2024 9:48 AM CDT 06/10/2024 9:48 AM CDT Martha Butterfield MD LAB POCT ORDERABLES - DEVICE Final Result Performing Organization Address [facility] Co de Phone Number [facility] [place] [address] * POCT glucose (06/10/2024 6:35 AM CDT) Glucose, POC 137 70 - 199 mg/dL Blood 06/10/2024 6:35 AM CDT 06/10/2024 6:35 AM CDT Martha Butterfield MD LAB POCT ORDERABLES - DEVICE Final Result Performing Organization Address City/[facility] Co de Phone Number [facility] [place] [address] * (ABNORMAL) Potassium, whole blood (06/10/2024 4:17 AM CDT) Potassium, bld 5.2(H) 3.3 - 4.9 mmol/L Blood 06/10/2024 4:17 AM CDT 06/10/2024 4:24 AM CDT us Lyndsey Ramos MD LAB BLOOD ORDERABLES Aniya l Result Performing Organization Address [facility] Co de Phone Number [facility] [place] [address] * (ABNORMAL) eGFR (06/10/2024 4:14 AM CDT) [...] BLOOD ORDERABLES Final Result Performing Organization Address City/[facility]/ZIP Co de Phone Number [facility] [place] [address] * Tacrolimus level trough (06/10/2024 4:14 AM CDT) Tacrolimus trough 9.6 ng/mL Comment: Interpretive Data Testing performed by liquid chromatography-tandem mass spectrometry. Therapeutic concentrations vary depending on type of transplanted organ and time elapsed since transplant. Typical trough concentrations range from 5-15 ng/mL. This test was developed and its performance characteristics determined by the [facility] consistent with CLIA requirements. This test has not been cleared or approved by the US Food and Drug administration. Current interpretive data last reviewed 2019. Blood 06/10/2024 4:14 AM CDT 06/10/2024 4:32 AM CDT us Patricia Davidson MD PhD LAB BLOOD ORDERABLES Final Result [facility] Department [place] [address] * (ABNORMAL) Renal function panel (06/10/2024 4:14 AM CDT) Sodium 142 135 - 145 mmol/L Potassium, pl 5.6(H) 3.3 - 4.9 mmol/L [facility] Comment:Hemolyzed; Potassium value may be falsely elevated by as much as 0.3-0.5 mmol/L. Suggest redraw and reanalysis. Chloride 112(H) 97 - 110 mmol/L [facility] CO2 24 22 - 32 mmol/L [facility] Anion gap 6 2 - 15 mmol/L [facility] BUN 29(H) 6 - 25 mg/dL [facility] Creatinine 2.11(H) 0.60 - 1.10 mg/dL [facility] Glucose 158 70 - 199 mg/dL [facility] Comment: Interpretive Data Fasting glucose [...] 2022. Calcium 9.1 8.5 - 10.3 mg/dL [facility] Phosphorus, pl 3.7 2.3 - 4.5 mg/dL [facility] Albumin 3.6 3.5 - 5.0 g/dL [facility] Blood 06/10/2024 4:14 AM CDT 06/10/2024 4:32 AM CDT us Patricia Davidson MD PhD LAB BLOOD ORDERABLES Final Result Performing Organization Address City/[facility] Co de Phone Number [facility] [address] * (ABNORMAL) POCT glucose (06/10/2024 2:27 AM CDT) Glucose, POC 210(H) 70 - 199 mg/dL Blood 06/10/2024 2:27 AM CDT 06/10/2024 2:27 AM CDT us Martha Butterfield MD LAB POCT ORDERABLES - DEVICE Final Result Performing Organization Address [facility] Co de Phone Number [facility] [place] [address] * (ABNORMAL) POCT glucose (06/10/2024 1:25 AM CDT) Glucose, POC 277(H) 70 - 199 mg/dL Blood 06/10/2024 1:25 AM CDT 06/10/2024 1:25 AM CDT Martha Butterfield MD LAB POCT ORDERABLES - DEVICE Final Result Performing Organization Address [facility] Co de Phone Number [facility] [place] [address] * POCT glucose (06/10/2024 12:24 AM CDT) Glucose, POC 138 70 - 199 mg/dL Blood 06/10/2024 12:2 4 AM CDT 06/10/2024 12:24 AM CDT Martha Butterfield MD LAB POCT ORDERABLES - DEVICE Final Result Performing Organization Address City/[facility]/ZIP Co de Phone Number [facility] Department [place] [address] * ECG 12 lead (06/10/2024 12:20 AM CDT) Pathologist [facility] [place] Ventricular Rate EKG/Min 65 BPM [facility] Atrial Rate 65 BPM [facility] GA-Interval (MSEC) 160 ms [facility] QRS-Interval (MSEC) 72 ms [facility] QT-Interval (MSEC) 452 ms [facility] QTc 470 ms [facility] P [place] -11 degrees [facility] R [place] -16 degrees [facility] T [place] 54 degrees [facility] Diagnosis Normal sinus rhythm Low voltage QRS [...] Septal leads Confirmed by BRODIE LEIGH M.D ([id number]) on 06/11/2024 10:14:44 AM [facility] 06/10/2024 12:2 0 AM CDT 06/11/2024 10:14 AM CDT us Martha Butterfield MD ECG ORDERABLES Final Result Performing Organization Address City/[facility]/ZIP Co de Phone Number [facility] * (ABNORMAL) Potassium, whole blood (06/09/2024 11:26 PM CDT) Pathologist [facility] [place] Potassium, bld 5.7(H) 3.3 - 4.9 mmol/L Blood 06/09/2024 11:2 6 PM CDT 06/09/2024 11:37 PM CDT Martha Butterfield MD LAB BLOOD ORDERABLES F inal Result Performing Organization Address City/[facility]/ZIP Co de Phone Number [facility] [place] [address] * (ABNORMAL) eGFR (06/09/2024 6:33 PM CDT) [...] LAB BLOOD ORDERABLES F inal Result [facility] [place] [address] * (ABNORMAL) Renal function panel (06/09/2024 6:33 PM CDT) Sodium 141 135 - 145 mmol/L Potassium, pl 5.5(H) 3.3 - 4.9 mmol/L [facility] Comment:Hemolyzed; Potassium value may be falsely elevated by as much as 0.3-0.5 mmol/L. Suggest redraw and reanalysis. Chloride 112(H) 97 - 110 mmol/L [facility] CO2 17(L) 22 - 32 mmol/L [facility] Anion gap 12 2 - 15 mmol/L [facility] BUN 32(H) 6 - 25 mg/dL [facility] Creatinine 2.08(H) 0.60 - 1.10 mg/dL [facility] Glucose 111 70 - 199 mg/dL [facility] Comment: Interpretive Data Fasting glucose [...] 2022. Calcium 8.7 8.5 - 10.3 mg/dL [facility] Phosphorus, pl 4.0 2.3 - 4.5 mg/dL [facility] Albumin 3.1(L) 3.5 - 5.0 g/dL [facility] Blood 06/09/2024 6:33 PM CDT 06/09/2024 6:48 PM CDT us Martha Butterfield MD LAB BLOOD ORDERABLES F inal Result [facility] Department [place] [address] * (ABNORMAL) eGFR (06/09/2024 5:12 AM CDT) Pathologist [facility] [place] eGFR 30(L) >=60 mL/min/1. 73 m2 Comment: [...] MD PhD LAB BLOOD ORDERABLES Final Result [facility] Department [place] [address] * Differential, auto (06/09/2024 5:12 AM CDT) Neutrophil abs 2.5 1.5 - 6.5 K/cumm Imm gran abs 0.0 0.0 - 0.1 K/cumm [facility] Lymphocyte abs 1.0 0.8 - 3.3 K/cumm [facility] Monocyte abs 0.4 0.2 - 0.8 K/cumm [facility] Eosinophil abs 0.2 0.0 - 0.5 K/cumm [facility] Basophil abs 0.0 0.0 - 0.1 K/cumm [facility] Neutrophil pct 61.7 % [facility] Comment: Interpretive Data Percent cell count reference ranges are not reported, since discordance with absolute values may lead to misinterpretation of CBC data. Current Interpretive Data was last revised on 2017. Imm gran pct 0.2 % [facility] Comment: Interpretive Data Percent cell count reference ranges are not reported, since discordance with absolute values may lead to misinterpretation of CBC data. Current Interpretive Data was last revised on 2017. Lymphocyte pct 25.2 % [facility] Comment: Interpretive Data Percent cell count reference ranges are not reported, since discordance with absolute values may lead to misinterpretation of CBC data. Current Interpretive Data was last revised on 2017. Monocyte pct 8.8 % [facility] Comment: Interpretive Data Percent cell count reference ranges are not reported, since discordance with absolute values may lead to misinterpretation of CBC data. Current Interpretive Data was last revised on 2017. Eosinophil pct 3.9 % [facility] Comment: Interpretive Data Percent cell count reference ranges are not reported, since discordance with absolute values may lead to misinterpretation of CBC data. Current Interpretive Data was last revised on 2017. Basophil pct 0.2 % [facility] Comment: Interpretive Data Percent cell count reference ranges are not reported, since discordance with absolute values may lead to misinterpretation of CBC data. Current Interpretive Data was last revised on 2017. Blood 06/09/2024 5:12 AM CDT 06/09/2024 5:43 AM CDT us Martha Butterfield MD LAB BLOOD ORDERABLES F inal Result [facility] Department [place] [address] * Tacrolimus level trough (06/09/2024 5:12 AM CDT) Tacrolimus trough 7.5 ng/mL Comment: Interpretive Data Testing performed by liquid chromatography-tandem mass spectrometry. Therapeutic concentrations vary depending on type of transplanted organ and time elapsed since transplant. Typical trough concentrations range from 5-15 ng/mL. This test was developed and its performance characteristics determined by the [facility] consistent with CLIA requirements. This test has not been cleared or approved by the US Food and Drug administration. Current interpretive data last reviewed 2019. Blood 06/09/2024 5:12 AM CDT 06/09/2024 5:43 AM CDT us Patricia Davidson MD PhD LAB BLOOD ORDERABLES Final Result Performing Organization Address [facility] Co de Phone Number [facility] Department [place] [address] * (ABNORMAL) CBC with auto differential (06/09/2024 5:12 AM CDT) WBC 4.1 3.8 - 9.9 K/cumm Hgb 10.9(L) 11.9 - 15.5 g/dL [facility] Hct 32.1(L) 35.6 - 45.5 % [facility] Plt 104(L) 150 - 400 K/cumm [facility] MPV 11.5 9.1 - 12.3 fL [facility] RBC 3.05(L) 3.90 - 5.20 M/cumm [facility] MCV 105.2(H) 81.3 - 96.4 fL [facility] MCH 35.7(H) 27.1 - 33.3 pg [facility] MCHC 34.0 32.3 - 35.7 g/dL [facility] RDW CV 14.7 11.1 - 14.9 % [facility] RDW SD 55.7(H) 35.7 - 48.1 fL [facility] NRBC abs 0.00 0.00 - 0.01 K/cumm [facility] Blood 06/09/2024 5:12 AM CDT 06/09/2024 5:43 AM CDT us Martha Butterfield MD LAB BLOOD ORDERABLES F inal Result Performing Organization Address City/[facility]/ZIP Co de Phone Number [facility] Department [place] [address] * (ABNORMAL) Renal function panel (06/09/2024 5:12 AM CDT) Sodium 144 135 - 145 mmol/L Potassium, pl 5.1(H) 3.3 - 4.9 mmol/L [facility] Chloride 111(H) 97 - 110 mmol/L [facility] CO2 23 22 - 32 mmol/L [facility] Anion gap 10 2 - 15 mmol/L [facility] BUN 33(H) 6 - 25 mg/dL [facility] Creatinine 2.08(H) 0.60 - 1.10 mg/dL [facility] Glucose 104 70 - 199 mg/dL [facility] Comment: Interpretive Data Fasting glucose [...] 2022. Calcium 8.7 8.5 - 10.3 mg/dL [facility] Phosphorus, pl 4.4 2.3 - 4.5 mg/dL [facility] Albumin 3.5 3.5 - 5.0 g/dL [facility] Blood 06/09/2024 5:12 AM CDT 06/09/2024 5:43 AM CDT us Patricia Davidson MD PhD LAB BLOOD ORDERABLES Final Result [facility] Department [place] [address] * (ABNORMAL) Potassium, whole blood (06/08/2024 8:37 AM CDT) [facility] Potassium, bld 5.0(H) 3.3 - 4.9 mmol/L Blood 06/08/2024 8:37 AM CDT 06/08/2024 9:17 AM CDT us Martha Butterfield MD LAB BLOOD ORDERABLES F inal Result Performing Organization Address [facility] Co de Phone Number [facility] Department [place] [address] * (ABNORMAL) eGFR (06/08/2024 5:40 AM CDT) [...] BLOOD ORDERABLES Final Result Performing Organization Address [facility] Co de Phone Number [facility] Department [place] [address] * Tacrolimus level trough (06/08/2024 5:40 AM CDT) Tacrolimus trough 6.6 ng/mL Comment: Interpretive Data Testing performed by liquid chromatography-tandem mass spectrometry. Therapeutic concentrations vary depending on type of transplanted organ and time elapsed since transplant. Typical trough concentrations range from 5-15 ng/mL. This test was developed and its performance characteristics determined by the [facility] consistent with CLIA requirements. This test has not been cleared or approved by the US Food and Drug administration. Current interpretive data last reviewed 2019. Blood 06/08/2024 5:40 AM CDT 06/08/2024 6:19 AM CDT Patricia Davidson MD PhD LAB BLOOD ORDERABLES Final Result [facility] One [facility] Department [place] [address] * (ABNORMAL) Renal function panel (06/08/2024 5:40 AM CDT) Sodium 144 135 - 145 mmol/L Potassium, pl 5.1(H) 3.3 - 4.9 mmol/L [facility] Chloride 114(H) 97 - 110 mmol/L [facility] CO2 23 22 - 32 mmol/L [facility] Anion gap 7 2 - 15 mmol/L [facility] BUN 31(H) 6 - 25 mg/dL [facility] Creatinine 2.07(H) 0.60 - 1.10 mg/dL [facility] Glucose 100 70 - 199 mg/dL [facility] Comment: Interpretive Data Fasting glucose [...] 2022. Calcium 8.7 8.5 - 10.3 mg/dL [facility] Phosphorus, pl 4.5 2.3 - 4.5 mg/dL [facility] Albumin 3.3(L) 3.5 - 5.0 g/dL [facility] Blood 06/08/2024 5:40 AM CDT 06/08/2024 6:19 AM CDT Patricia Davidson MD PhD LAB BLOOD ORDERABLES Final Result Performing Organization Address [facility] de Phone Number [facility] Department [place] [address] * (ABNORMAL) eGFR (06/07/2024 5:17 AM CDT) [facility] eGFR 33(L) >=60 mL/min/1. 73 m2 [...] BLOOD ORDERABLES Final Result Performing Organization Address City/[facility]/ZIP Co de Phone Number [facility] Department [place] [address] * Differential, auto (06/07/2024 5:17 AM CDT) [facility] Neutrophil abs 2.9 1.5 - 6.5 K/cumm Imm gran abs 0.0 0.0 - 0.1 K/cumm [facility] Lymphocyte abs 1.1 0.8 - 3.3 K/cumm [facility] Monocyte abs 0.3 0.2 - 0.8 K/cumm [facility] Eosinophil abs 0.2 0.0 - 0.5 K/cumm [facility] Basophil abs 0.0 0.0 - 0.1 K/cumm [facility] Neutrophil pct 64.2 % [facility] Comment: Interpretive Data Percent cell count reference ranges are not reported, since discordance with absolute values may lead to misinterpretation of CBC data. Current Interpretive Data was last revised on 2017. Imm gran pct 0.2 % [facility] Comment: Interpretive Data Percent cell count reference ranges are not reported, since discordance with absolute values may lead to misinterpretation of CBC data. Current Interpretive Data was last revised on 2017. Lymphocyte pct 24.2 % [facility] Comment: Interpretive Data Percent cell count reference ranges are not reported, since discordance with absolute values may lead to misinterpretation of CBC data. Current Interpretive Data was last revised on 2017. Monocyte pct 7.2 % [facility] Comment: Interpretive Data Percent cell count reference ranges are not reported, since discordance with absolute values may lead to misinterpretation of CBC data. Current Interpretive Data was last revised on 2017. Eosinophil pct 4.0 % [facility] Comment: Interpretive Data Percent cell count reference ranges are not reported, since discordance with absolute values may lead to misinterpretation of CBC data. Current Interpretive Data was last revised on 2017. Basophil pct 0.2 % [facility] Comment: Interpretive Data Percent cell count reference ranges are not reported, since discordance with absolute values may lead to misinterpretation of CBC data. Current Interpretive Data was last revised on 2017. Blood 06/07/2024 5:17 AM CDT 06/07/2024 6:14 AM CDT us Martha Butterfield MD LAB BLOOD ORDERABLES F inal Result [facility] One [facility] Department [place] [address] * Tacrolimus level trough (06/07/2024 5:17 AM CDT) [facility] Tacrolimus trough 6.2 ng/mL Comment: Interpretive Data Testing performed by liquid chromatography-tandem mass spectrometry. Therapeutic concentrations vary depending on type of transplanted organ and time elapsed since transplant. Typical trough concentrations range from 5-15 ng/mL. This test was developed and its performance characteristics determined by the [facility] consistent with CLIA requirements. This test has not been cleared or approved by the [place] Food and Drug administration. Current interpretive data last reviewed 2019. Blood 06/07/2024 5:17 AM CDT 06/07/2024 6:14 AM CDT us Patricia Davidson MD PhD LAB BLOOD ORDERABLES Final Result [facility] Department [place] [address] * (ABNORMAL) CBC with auto differential (06/07/2024 5:17 AM CDT) [facility] WBC 4.5 3.8 - 9.9 K/cumm Hgb 10.7(L) 11.9 - 15.5 g/dL [facility] Hct 31.3(L) 35.6 - 45.5 % [facility] Plt 100(L) 150 - 400 K/cumm [facility] MPV 11.8 9.1 - 12.3 fL [facility] RBC 2.96(L) 3.90 - 5.20 M/cumm [facility] MCV 105.7(H) 81.3 - 96.4 fL [facility] MCH 36.1(H) 27.1 - 33.3 pg [facility] MCHC 34.2 32.3 - 35.7 g/dL [facility] RDW CV 14.2 11.1 - 14.9 % [facility] RDW SD 53.7(H) 35.7 - 48.1 fL [facility] NRBC abs 0.00 0.00 - 0.01 K/cumm [facility] Blood 06/07/2024 5:17 AM CDT 06/07/2024 6:14 AM CDT us Martha Butterfield MD LAB BLOOD ORDERABLES F inal Result [facility] Department [place] [address] * (ABNORMAL) Renal function panel (06/07/2024 5:17 AM CDT) [facility] Sodium 137 135 - 145 mmol/L Potassium, pl 4.9 3.3 - 4.9 mmol/L [facility] Chloride 108 97 - 110 mmol/L [facility] CO2 21(L) 22 - 32 mmol/L [facility] Anion gap 8 2 - 15 mmol/L [facility] BUN 28(H) 6 - 25 mg/dL [facility] Creatinine 1.92(H) 0.60 - 1.10 mg/dL [facility] Glucose 125 70 - 199 mg/dL [facility] Comment: Interpretive Data Fasting glucose [...] 2022. Calcium 8.1(L) 8.5 - 10.3 mg/dL [facility] Phosphorus, pl 3.8 2.3 - 4.5 mg/dL [facility] Albumin 3.4(L) 3.5 - 5.0 g/dL [facility] Blood 06/07/2024 5:1 7 AM CDT 06/07/2024 6:13 AM CDT us Patricia Davidson MD PhD LAB BLOOD ORDERABLES Final Result [facility] Department [place] [address] * Potassium, whole blood (06/06/2024 11:29 AM CDT) Potassium, bld 4.9 3.3 - 4.9 mmol/L Blood 06/06/2024 11:2 9 AM CDT 06/06/2024 12:20 PM CDT us Martha Butterfield MD LAB BLOOD ORDERABLES F inal Result Performing Organization Address [facility] Co de Phone Number [facility] Department [place] [address] * (ABNORMAL) eGFR (06/06/2024 4:28 AM CDT) [...] PhD LAB BLOOD ORDERABLES Final Result [facility] [place] [address] * Tacrolimus level trough (06/06/2024 4:28 AM CDT) Pathologist [facility] [place] Tacrolimus trough 5.9 ng/mL Comment: Interpretive Data Testing performed by liquid chromatography-tandem mass spectrometry. Therapeutic concentrations vary depending on type of transplanted organ and time elapsed since transplant. Typical trough concentrations range from 5-15 ng/mL. This test was developed and its performance characteristics determined by the [facility] consistent with CLIA requirements. This test has not been cleared or approved by the US Food and Drug administration. Current interpretive data last reviewed 2019. Blood 06/06/2024 4:28 AM CDT 06/06/2024 5:44 AM CDT Patricia Davidson MD PhD LAB BLOOD ORDERABLES Final Result Performing Organization Address [facility] de Phone Number [facility] Department [place] [address] * (ABNORMAL) Renal function panel (06/06/2024 4:28 AM CDT) Pathologist [facility] [place] Sodium 143 135 - 145 mmol/L Potassium, pl 5.3(H) 3.3 - 4.9 mmol/L [facility] Chloride 113(H) 97 - 110 mmol/L [facility] CO2 23 22 - 32 mmol/L [facility] Anion gap 7 2 - 15 mmol/L [facility] BUN 30(H) 6 - 25 mg/dL [facility] Creatinine 1.99(H) 0.60 - 1.10 mg/dL [facility] Glucose 86 70 - 199 mg/dL [facility] Comment: Interpretive Data Fasting glucose [...] 2022. Calcium 8.5 8.5 - 10.3 mg/dL [facility] Phosphorus, pl 4.1 2.3 - 4.5 mg/dL [facility] Albumin 3.1(L) 3.5 - 5.0 g/dL [facility] Blood 06/06/2024 4:28 AM CDT 06/06/2024 5:36 AM CDT Patricia Davidson MD PhD LAB BLOOD ORDERABLES Final Result [facility] Department [place] [address] * (ABNORMAL) eGFR (06/05/2024 5:49 AM CDT) [...] MD PhD LAB BLOOD ORDERABLES Final Result [facility] [place] [address] * Differential, auto (06/05/2024 5:49 AM CDT) Neutrophil abs 2.5 1.5 - 6.5 K/cumm Imm gran abs 0.0 0.0 - 0.1 K/cumm [facility] Lymphocyte abs 1.0 0.8 - 3.3 K/cumm [facility] Monocyte abs 0.4 0.2 - 0.8 K/cumm [facility] Eosinophil abs 0.1 0.0 - 0.5 K/cumm [facility] Basophil abs 0.0 0.0 - 0.1 K/cumm [facility] Neutrophil pct 62.5 % [facility] Comment: Interpretive Data Percent cell count reference ranges are not reported, since discordance with absolute values may lead to misinterpretation of CBC data. Current Interpretive Data was last revised on 2017. Imm gran pct 0.3 % [facility] Comment: Interpretive Data Percent cell count reference ranges are not reported, since discordance with absolute values may lead to misinterpretation of CBC data. Current Interpretive Data was last revised on 2017. Lymphocyte pct 24.3 % [facility] Comment: Interpretive Data Percent cell count reference ranges are not reported, since discordance with absolute values may lead to misinterpretation of CBC data. Current Interpretive Data was last revised on 2017. Monocyte pct 9.3 % [facility] Comment: Interpretive Data Percent cell count reference ranges are not reported, since discordance with absolute values may lead to misinterpretation of CBC data. Current Interpretive Data was last revised on 2017. Eosinophil pct 3.3 % [facility] Comment: Interpretive Data Percent cell count reference ranges are not reported, since discordance with absolute values may lead to misinterpretation of CBC data. Current Interpretive Data was last revised on 2017. Basophil pct 0.3 % [facility] Comment: Interpretive Data Percent cell count reference ranges are not reported, since discordance with absolute values may lead to misinterpretation of CBC data. Current Interpretive Data was last revised on 2017. Blood 06/05/2024 5:49 AM CDT 06/05/2024 6:48 AM CDT Patricia Davidson MD PhD LAB BLOOD ORDERABLES Final Result Performing Organization Address [facility] de Phone Number [facility] [place] [address] * Tacrolimus level trough (06/05/2024 5:49 AM CDT) Pathologist [facility] [place] Tacrolimus trough 5.9 ng/mL Comment: Interpretive Data Testing performed by liquid chromatography-tandem mass spectrometry. Therapeutic concentrations vary depending on type of transplanted organ and time elapsed since transplant. Typical trough concentrations range from 5-15 ng/mL. This test was developed and its performance characteristics determined by the [facility] consistent with CLIA requirements. This test has not been cleared or approved by the [place] Food and Drug administration. Current interpretive data last reviewed 2019. Blood 06/05/2024 5:49 AM CDT 06/05/2024 6:48 AM CDT Patricia Davidson MD PhD LAB BLOOD ORDERABLES Final Result Performing Organization Address [facility] [place] [address] * (ABNORMAL) CBC with auto differential (06/05/2024 5:49 AM CDT) Pathologist [facility] [place] WBC 4.0 3.8 - 9.9 K/cumm Hgb 10.9(L) 11.9 - 15.5 g/dL [facility] Hct 31.7(L) 35.6 - 45.5 % [facility] Plt 102(L) 150 - 400 K/cumm [facility] MPV 11.6 9.1 - 12.3 fL [facility] RBC 3.05(L) 3.90 - 5.20 M/cumm [facility] MCV 103.9(H) 81.3 - 96.4 fL [facility] MCH 35.7(H) 27.1 - 33.3 pg [facility] MCHC 34.4 32.3 - 35.7 g/dL [facility] RDW CV 14.0 11.1 - 14.9 % [facility] RDW SD 52.3(H) 35.7 - 48.1 fL [facility] NRBC abs 0.00 0.00 - 0.01 K/cumm [facility] Blood 06/05/2024 5:49 AM CDT 06/05/2024 6:48 AM CDT us Patricia Davidson MD PhD LAB BLOOD ORDERABLES Final Result [facility] Department [place] [address] * (ABNORMAL) Renal function panel (06/05/2024 5:49 AM CDT) Sodium 140 135 - 145 mmol/L Potassium, pl 4.6 3.3 - 4.9 mmol/L [facility] Chloride 109 97 - 110 mmol/L [facility] CO2 22 22 - 32 mmol/L [facility] Anion gap 9 2 - 15 mmol/L [facility] BUN 29(H) 6 - 25 mg/dL [facility] Creatinine 1.99(H) 0.60 - 1.10 mg/dL [facility] Glucose 98 70 - 199 mg/dL [facility] Comment: Interpretive Data Fasting glucose [...] 2022. Calcium 8.6 8.5 - 10.3 mg/dL [facility] Phosphorus, pl 4.3 2.3 - 4.5 mg/dL [facility] Albumin 3.5 3.5 - 5.0 g/dL [facility] Blood 06/05/2024 5:49 AM CDT 06/05/2024 6:48 AM CDT us Patricia Davidson MD PhD LAB BLOOD ORDERABLES Final Result [facility] Department [place] [address] * ECG 12 lead (06/04/2024 5:41 AM CDT) Ventricular Rate EKG/Min 67 BPM [facility] Atrial Rate 67 BPM [facility] GA-Interval (MSEC) 202 ms [facility] QRS-Interval (MSEC) 74 ms [facility] QT-Interval (MSEC) 426 ms [facility] QTc 450 ms [facility] P [place] 5 degrees [facility] R [place] -19 degrees [facility] T [place] 53 degrees [facility] Diagnosis Normal sinus rhythm 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) Abnormal ECG When compared with ECG of 30-MAY-2024 01:10, QT has shortened Confirmed by LYNDSEY TUCKER M.D ([id number]) on 06/05/2024 5:57:41 AM [facility] 06/04/2024 5:41 AM CDT 06/05/2024 5:57 AM CDT Pineda Barrios MD ECG ORDERABLES Final Result Performing Organization Address City/[facility]/ZIP Co de Phone Number [facility] * (ABNORMAL) eGFR (06/04/2024 5:10 [...] MD PhD LAB BLOOD ORDERABLES Final Result [facility] Department [place] [address] * Differential, auto (06/04/2024 5:10 AM CDT) Pathologist [facility] [place] Neutrophil abs 3.1 1.5 - 6.5 K/cumm Imm gran abs 0.0 0.0 - 0.1 K/cumm [facility] Lymphocyte abs 1.3 0.8 - 3.3 K/cumm [facility] Monocyte abs 0.5 0.2 - 0.8 K/cumm [facility] Eosinophil abs 0.2 0.0 - 0.5 K/cumm [facility] Basophil abs 0.0 0.0 - 0.1 K/cumm [facility] Neutrophil pct 61.7 % [facility] Comment: Interpretive Data Percent cell count reference ranges are not reported, since discordance with absolute values may lead to misinterpretation of CBC data. Current Interpretive Data was last revised on 2017. Imm gran pct 0.4 % [facility] Comment: Interpretive Data Percent cell count reference ranges are not reported, since discordance with absolute values may lead to misinterpretation of CBC data. Current Interpretive Data was last revised on 2017. Lymphocyte pct 25.2 % [facility] Comment: Interpretive Data Percent cell count reference ranges are not reported, since discordance with absolute values may lead to misinterpretation of CBC data. Current Interpretive Data was last revised on 2017. Monocyte pct 9.1 % [facility] Comment: Interpretive Data Percent cell count reference ranges are not reported, since discordance with absolute values may lead to misinterpretation of CBC data. Current Interpretive Data was last revised on 2017. Eosinophil pct 3.0 % [facility] Comment: Interpretive Data Percent cell count reference ranges are not reported, since discordance with absolute values may lead to misinterpretation of CBC data. Current Interpretive Data was last revised on 2017. Basophil pct 0.6 % [facility] Comment: Interpretive Data Percent cell count reference ranges are not reported, since discordance with absolute values may lead to misinterpretation of CBC data. Current Interpretive Data was last revised on 2017. Blood 06/04/2024 5:10 AM CDT 06/04/2024 6:22 AM CDT Patricia Davidson MD PhD LAB BLOOD ORDERABLES Final Result [facility] Department [place] [address] * Tacrolimus level trough (06/04/2024 5:10 AM CDT) Tacrolimus trough 6.1 ng/mL Comment: Interpretive Data Testing performed by liquid chromatography-tandem mass spectrometry. Therapeutic concentrations vary depending on type of transplanted organ and time elapsed since transplant. Typical trough concentrations range from 5-15 ng/mL. This test was developed and its performance characteristics determined by the [facility] consistent with CLIA requirements. This test has not been cleared or approved by the [place] Food and Drug administration. Current interpretive data last reviewed 2019. Blood 06/04/2024 5:10 AM CDT 06/04/2024 6:22 AM CDT us Patricia Davidson MD PhD LAB BLOOD ORDERABLES Final Result [facility] [place] [place] [address] * (ABNORMAL) CBC with auto differential (06/04/2024 5:10 AM CDT) Pathologist [facility] [place] WBC 5.0 3.8 - 9.9 K/cumm Hgb 11.2(L) 11.9 - 15.5 g/dL [facility] Hct 32.3(L) 35.6 - 45.5 % [facility] Plt 102(L) 150 - 400 K/cumm [facility] MPV 11.6 9.1 - 12.3 fL [facility] RBC 3.13(L) 3.90 - 5.20 M/cumm [facility] MCV 103.2(H) 81.3 - 96.4 fL [facility] MCH 35.8(H) 27.1 - 33.3 pg [facility] MCHC 34.7 32.3 - 35.7 g/dL [facility] RDW CV 13.7 11.1 - 14.9 % [facility] RDW SD 51.2(H) 35.7 - 48.1 fL [facility] NRBC abs 0.00 0.00 - 0.01 K/cumm [facility] Blood 06/04/2024 5:10 AM CDT 06/04/2024 6:22 AM CDT us Patricia Davidson MD PhD LAB BLOOD ORDERABLES Final Result [facility] [place] [place] [address] * (ABNORMAL) Renal function panel (06/04/2024 5:10 AM CDT) Sodium 144 135 - 145 mmol/L Potassium, pl 4.8 3.3 - 4.9 mmol/L [facility] Chloride 112(H) 97 - 110 mmol/L [facility] CO2 23 22 - 32 mmol/L [facility] Anion gap 9 2 - 15 mmol/L [facility] BUN 25 6 - 25 mg/dL [facility] Creatinine 1.98(H) 0.60 - 1.10 mg/dL [facility] Glucose 81 70 - 199 mg/dL [facility] Comment: Interpretive Data Fasting glucose [...] 2022. Calcium 8.9 8.5 - 10.3 mg/dL [facility] Phosphorus, pl 4.3 2.3 - 4.5 mg/dL [facility] Albumin 3.4(L) 3.5 - 5.0 g/dL [facility] Blood 06/04/2024 5:10 AM CDT 06/04/2024 6:23 AM CDT us Patricia Davidson MD PhD LAB BLOOD ORDERABLES Final Result [facility] Department [place] [address] * Folate (06/04/2024 12:39 AM CDT) Folic acid See Comment >=5.0 ng/mL Comment: Credited; Hemolyzed Specimen Telephone report made to: Luz Maria Iyer RN on 06/04/2024 08:49:44 CDT by SAUD . Blood 06/04/2024 12:3 9 AM CDT 06/04/2024 1:24 AM CDT us Shea Babcock MD LAB BLOOD ORDERABLE S Final Result Performing Organization Address City/[facility]/ZIP Co de Phone Number [facility] [place] [address] * Protein / creatinine ratio, urine, random (06/03/2024 6:15 PM CDT) Protein, ur, quant <5.0 mg/dL Comment: Interpretive Data No reference range established. Current interpretive data was last revised 2018. Creatinine Ur 39.1 mg/dL [facility] Comment: Interpretive Data No reference range established. Current interpretive data was last revised 2018. Protein/creatinin e ratio <127.9 0.0 - 180.0 mg/g CR [facility] Urine 06/03/2024 6:15 PM CDT 06/03/2024 7:42 PM CDT Pineda Barrios MD LAB URINE ORDE RABLES Final Result Performing Organization Address [facility] Co de Phone Number [facility] Department [place] [address] * (ABNORMAL) eGFR (06/03/2024 8:54 AM CDT) [...] MD PhD LAB BLOOD ORDERABLES Final Result [facility] Department [place] [address] * Differential, auto (06/03/2024 8:54 AM CDT) Neutrophil abs 2.8 1.5 - 6.5 K/cumm Imm gran abs 0.0 0.0 - 0.1 K/cumm [facility] Lymphocyte abs 1.3 0.8 - 3.3 K/cumm [facility] Monocyte abs 0.4 0.2 - 0.8 K/cumm [facility] Eosinophil abs 0.2 0.0 - 0.5 K/cumm [facility] Basophil abs 0.0 0.0 - 0.1 K/cumm [facility] Neutrophil pct 59.1 % [facility] Comment: Interpretive Data Percent cell count reference ranges are not reported, since discordance with absolute values may lead to misinterpretation of CBC data. Current Interpretive Data was last revised on 2017. Imm gran pct 0.4 % [facility] Comment: Interpretive Data Percent cell count reference ranges are not reported, since discordance with absolute values may lead to misinterpretation of CBC data. Current Interpretive Data was last revised on 2017. Lymphocyte pct 27.4 % [facility] Comment: Interpretive Data Percent cell count reference ranges are not reported, since discordance with absolute values may lead to misinterpretation of CBC data. Current Interpretive Data was last revised on 2017. Monocyte pct 9.1 % [facility] Comment: Interpretive Data Percent cell count reference ranges are not reported, since discordance with absolute values may lead to misinterpretation of CBC data. Current Interpretive Data was last revised on 2017. Eosinophil pct 3.8 % [facility] Comment: Interpretive Data Percent cell count reference ranges are not reported, since discordance with absolute values may lead to misinterpretation of CBC data. Current Interpretive Data was last revised on 2017. Basophil pct 0.2 % [facility] Comment: Interpretive Data Percent cell count reference ranges are not reported, since discordance with absolute values may lead to misinterpretation of CBC data. Current Interpretive Data was last revised on 2017. Blood 06/03/2024 8:54 AM CDT 06/03/2024 9:23 AM CDT Result [facility] Patricia Davidson MD PhD LAB BLOOD ORDERABLES Final Result Performing Organization Address [facility] de Phone Number [facility] Department [place] [address] * Tacrolimus level trough (06/03/2024 8:54 AM CDT) Pathologist [facility] [place] Tacrolimus trough 4.9 ng/mL Comment: Interpretive Data Testing performed by liquid chromatography-tandem mass spectrometry. Therapeutic concentrations vary depending on type of transplanted organ and time elapsed since transplant. Typical trough concentrations range from 5-15 ng/mL. This test was developed and its performance characteristics determined by the [facility] consistent with CLIA requirements. This test has not been cleared or approved by the [place] Food and Drug administration. Current interpretive data last reviewed 2019. Blood 06/03/2024 8:54 AM CDT 06/03/2024 9:22 AM CDT Patricia Davidson MD PhD LAB BLOOD ORDERABLES Final Result Performing Organization Address [facility] de Phone Number [facility] Department [place] [address] * (ABNORMAL) CBC with auto differential (06/03/2024 8:54 AM CDT) [facility] WBC 4.7 3.8 - 9.9 K/cumm Hgb 11.6(L) 11.9 - 15.5 g/dL [facility] Hct 32.6(L) 35.6 - 45.5 % [facility] Plt 121(L) 150 - 400 K/cumm [facility] MPV 11.0 9.1 - 12.3 fL [facility] RBC 3.19(L) 3.90 - 5.20 M/cumm [facility] MCV 102.2(H) 81.3 - 96.4 fL [facility] MCH 36.4(H) 27.1 - 33.3 pg [facility] MCHC 35.6 32.3 - 35.7 g/dL [facility] RDW CV 13.5 11.1 - 14.9 % [facility] RDW SD 49.6(H) 35.7 - 48.1 fL [facility] NRBC abs 0.00 0.00 - 0.01 K/cumm [facility] Blood 06/03/2024 8:54 AM CDT 06/03/2024 9:23 AM CDT us Patricia Davidson MD PhD LAB BLOOD ORDERABLES Final Result [facility] [place] [address] * CRP (acute phase) (06/03/2024 8:54 AM CDT) CRP 6.5 <=10.0 mg/L Blood 06/03/2024 8:54 AM CDT 06/03/2024 9:25 AM CDT us Pineda Barrios MD LAB BLOOD ORDE RABLES Final Result [facility] Department [place] [address] * (ABNORMAL) Renal function panel (06/03/2024 8:54 AM CDT) Sodium 143 135 - 145 mmol/L Potassium, pl 4.6 3.3 - 4.9 mmol/L [facility] Chloride 110 97 - 110 mmol/L [facility] CO2 23 22 - 32 mmol/L [facility] Anion gap 10 2 - 15 mmol/L [facility] BUN 21 6 - 25 mg/dL [facility] Creatinine 1.93(H) 0.60 - 1.10 mg/dL [facility] Glucose 125 70 - 199 mg/dL [facility] Comment: Interpretive Data Fasting glucose [...] 2022. Calcium 9.1 8.5 - 10.3 mg/dL [facility] Phosphorus, pl 3.5 2.3 - 4.5 mg/dL [facility] Albumin 3.5 3.5 - 5.0 g/dL [facility] Blood 06/03/2024 8:54 AM CDT 06/03/2024 9:25 AM CDT Patricia Davidson MD PhD LAB BLOOD ORDERABLES Final Result [facility] [place] [address] * (ABNORMAL) eGFR (06/03/2024 2:22 AM CDT) [facility] eGFR 34(L) >=60 mL/min/1. 73 m2 [...] MD LAB BLOOD ORDE COURTNEY Final Result [facility] Department [place] [address] * Differential, auto (06/03/2024 2:22 AM CDT) Neutrophil abs 2.5 1.5 - 6.5 K/cumm Imm gran abs 0.0 0.0 - 0.1 K/cumm [facility] Lymphocyte abs 1.2 0.8 - 3.3 K/cumm [facility] Monocyte abs 0.4 0.2 - 0.8 K/cumm [facility] Eosinophil abs 0.1 0.0 - 0.5 K/cumm [facility] Basophil abs 0.0 0.0 - 0.1 K/cumm [facility] Neutrophil pct 58.3 % [facility] Comment: Interpretive Data Percent cell count reference ranges are not reported, since discordance with absolute values may lead to misinterpretation of CBC data. Current Interpretive Data was last revised on 2017. Imm gran pct 0.5 % [facility] [facility] Comment: Interpretive Data Percent cell count reference ranges are not reported, since discordance with absolute values may lead to misinterpretation of CBC data. Current Interpretive Data was last revised on 2017. Lymphocyte pct 28.7 % [facility] Comment: Interpretive Data Percent cell count reference ranges are not reported, since discordance with absolute values may lead to misinterpretation of CBC data. Current Interpretive Data was last revised on 2017. Monocyte pct 9.2 % [facility] Comment: Interpretive Data Percent cell count reference ranges are not reported, since discordance with absolute values may lead to misinterpretation of CBC data. Current Interpretive Data was last revised on 2017. Eosinophil pct 3.1 % [facility] Comment: Interpretive Data Percent cell count reference ranges are not reported, since discordance with absolute values may lead to misinterpretation of CBC data. Current Interpretive Data was last revised on 2017. Basophil pct 0.2 % [facility] Comment: Interpretive Data Percent cell count reference ranges are not reported, since discordance with absolute values may lead to misinterpretation of CBC data. Current Interpretive Data was last revised on 2017. Blood 06/03/2024 2:22 AM CDT 06/03/2024 2:57 AM CDT us Pineda Barrios MD LAB BLOOD RICO VALDEZ Final Result [facility] [place] [place] [address] * (ABNORMAL) Iron profile w/ IBC (06/03/2024 2:22 AM CDT) Iron 104 35 - 145 mcg/dL TIBC 192(L) 250 - 400 mcg/dL [facility] Transferrin saturation 54(H) 20 - 50 % [facility] Blood 06/03/2024 2:22 AM CDT 06/03/2024 2:57 AM CDT us Shea Babcock MD LAB BLOOD ORDERABLE S Final Result [facility] [place] [address] * (ABNORMAL) CBC with auto differential (06/03/2024 2:22 AM CDT) WBC 4.2 3.8 - 9.9 K/cumm Hgb 11.5(L) 11.9 - 15.5 g/dL [facility] Hct 32.9(L) 35.6 - 45.5 % [facility] Plt 120(L) 150 - 400 K/cumm [facility] MPV 11.2 9.1 - 12.3 fL [facility] RBC 3.24(L) 3.90 - 5.20 M/cumm [facility] MCV 101.5(H) 81.3 - 96.4 fL [facility] MCH 35.5(H) 27.1 - 33.3 pg [facility] MCHC 35.0 32.3 - 35.7 g/dL [facility] RDW CV 13.4 11.1 - 14.9 % [facility] RDW SD 49.9(H) 35.7 - 48.1 fL [facility] NRBC abs 0.00 0.00 - 0.01 K/cumm [facility] Blood 06/03/2024 2:22 AM CDT 06/03/2024 2:57 AM CDT Pineda Barrios MD LAB BLOOD ORDXavier VALDEZ Final Result [facility] One [facility] [place] [address] * Tacrolimus level random (06/03/2024 2:22 AM CDT) Pathologist [facility] [place] Tacrolimus random 6.3 ng/mL Comment: Interpretive Data Testing performed by liquid chromatography-tandem mass spectrometry. Therapeutic concentrations vary depending on type of transplanted organ and time elapsed since transplant. Typical trough concentrations range from 5-15 ng/mL. This test was developed and its performance characteristics determined by the [facility] consistent with CLIA requirements. This test has not been cleared or approved by the US Food and Drug administration. Current interpretive data last reviewed 2019. Blood 06/03/2024 2:22 AM CDT 06/03/2024 2:57 AM CDT Pineda Barrios MD LAB BLOOD RICO VALDEZ Final Result Performing Organization Address City/[facility] Co de Phone Number [facility] [place] [place] [address] * TSH (06/03/2024 2:22 AM CDT) Thyroid Stimulating Hormone 1.91 0.30 - 4.20 mcIUnit/mL Blood 06/03/2024 2:22 AM CDT 06/03/2024 2:57 AM CDT Shea Babcock MD LAB BLOOD ORDERABLE S Final Result Performing Organization Address [facility] Co de Phone Number [facility] [place] [address] * (ABNORMAL) Ferritin (06/03/2024 2:22 AM CDT) Ferritin 213(H) 13 - 150 ng/mL Blood 06/03/2024 2:22 AM CDT 06/03/2024 2:57 AM CDT Shea Babcock MD LAB BLOOD ORDERABLE S Final Result Performing Organization Address City/[facility] Co de Phone Number [facility] [place] [address] * Vitamin B12 (06/03/2024 2:22 AM CDT) Vitamin B12 749 230 - 1,250 pg/mL Blood 06/03/2024 2:22 AM CDT 06/03/2024 2:57 AM CDT us Shea Babcock MD LAB BLOOD ORDERABLE S Final Result [facility] [place] [address] * (ABNORMAL) Renal function panel (06/03/2024 2:22 AM CDT) Sodium 144 135 - 145 mmol/L Potassium, pl 5.0(H) 3.3 - 4.9 mmol/L [facility] Chloride 111(H) 97 - 110 mmol/L [facility] CO2 25 22 - 32 mmol/L [facility] Anion gap 8 2 - 15 mmol/L [facility] BUN 23 6 - 25 mg/dL [facility] Creatinine 1.86(H) 0.60 - 1.10 mg/dL [facility] Glucose 102 70 - 199 mg/dL [facility] Comment: Interpretive Data Fasting glucose [...] 2022. Calcium 9.2 8.5 - 10.3 mg/dL [facility] Phosphorus, pl 3.1 2.3 - 4.5 mg/dL [facility] Albumin 3.8 3.5 - 5.0 g/dL [facility] Blood 06/03/2024 2:22 AM CDT 06/03/2024 2:57 AM CDT us Pineda Barrios MD LAB BLOOD ORDE COURTNEY Final Result [facility] [place] [address] * (ABNORMAL) eGFR (06/02/2024 8:43 AM CDT) Pathologist [facility] [place] eGFR 33(L) >=60 mL/min/1. 73 m2 Comment: [...] MD PhD LAB BLOOD ORDERABLES Final Result [facility] One [facility] [place] [address] * Differential, auto (06/02/2024 8:43 AM CDT) Pathologist [facility] [place] Neutrophil abs 2.3 1.5 - 6.5 K/cumm Imm gran abs 0.0 0.0 - 0.1 K/cumm [facility] Lymphocyte abs 1.3 0.8 - 3.3 K/cumm [facility] Monocyte abs 0.4 0.2 - 0.8 K/cumm [facility] Eosinophil abs 0.1 0.0 - 0.5 K/cumm [facility] Basophil abs 0.0 0.0 - 0.1 K/cumm [facility] Neutrophil pct 55.6 % [facility] Comment: Interpretive Data Percent cell count reference ranges are not reported, since discordance with absolute values may lead to misinterpretation of CBC data. Current Interpretive Data was last revised on 2017. Imm gran pct 0.2 % [facility] Comment: Interpretive Data Percent cell count reference ranges are not reported, since discordance with absolute values may lead to misinterpretation of CBC data. Current Interpretive Data was last revised on 2017. Lymphocyte pct 30.7 % [facility] Comment: Interpretive Data Percent cell count reference ranges are not reported, since discordance with absolute values may lead to misinterpretation of CBC data. Current Interpretive Data was last revised on 2017. Monocyte pct 10.1 % [facility] Comment: Interpretive Data Percent cell count reference ranges are not reported, since discordance with absolute values may lead to misinterpretation of CBC data. Current Interpretive Data was last revised on 2017. Eosinophil pct 3.2 % [facility] Comment: Interpretive Data Percent cell count reference ranges are not reported, since discordance with absolute values may lead to misinterpretation of CBC data. Current Interpretive Data was last revised on 2017. Basophil pct 0.2 % [facility] Comment: Interpretive Data Percent cell count reference ranges are not reported, since discordance with absolute values may lead to misinterpretation of CBC data. Current Interpretive Data was last revised on 2017. Blood 06/02/2024 8:43 AM CDT 06/02/2024 9:14 AM CDT us Patricia Davidson MD PhD LAB BLOOD ORDERABLES Final Result [facility] One [facility] Department of Laboratories [place], [place] [id number] * Tacrolimus level trough (06/02/2024 8:43 AM CDT) [facility] Tacrolimus trough 3.8 ng/mL Comment: Interpretive Data Testing performed by liquid chromatography-tandem mass spectrometry. Therapeutic concentrations vary depending on type of transplanted organ and time elapsed since transplant. Typical trough concentrations range from 5-15 ng/mL. This test was developed and its performance characteristics determined by the [facility] consistent with CLIA requirements. This test has not been cleared or approved by the US Food and Drug administration. Current interpretive data last reviewed 2019. Blood 06/02/2024 8:43 AM CDT 06/02/2024 9:14 AM CDT Patricia Davidson MD PhD LAB BLOOD ORDERABLES Final Result [facility] One [facility] Department [place] [address] * (ABNORMAL) CBC with auto differential (06/02/2024 8:43 AM CDT) WBC 4.1 3.8 - 9.9 K/cumm Hgb 10.8(L) 11.9 - 15.5 g/dL [facility] Hct 30.5(L) 35.6 - 45.5 % [facility] Plt 105(L) 150 - 400 K/cumm [facility] MPV 11.6 9.1 - 12.3 fL [facility] RBC 3.03(L) 3.90 - 5.20 M/cumm [facility] MCV 100.7(H) 81.3 - 96.4 fL [facility] MCH 35.6(H) 27.1 - 33.3 pg [facility] MCHC 35.4 32.3 - 35.7 g/dL [facility] RDW CV 13.3 11.1 - 14.9 % [facility] RDW SD 48.2(H) 35.7 - 48.1 fL [facility] NRBC abs 0.00 0.00 - 0.01 K/cumm [facility] Blood 06/02/2024 8:43 AM CDT 06/02/2024 9:14 AM CDT Patricia Davidson MD PhD LAB BLOOD ORDERABLES Final Result [facility] One [facility] Department [place] [address] * (ABNORMAL) Renal function panel (06/02/2024 8:43 AM CDT) Sodium 143 135 - 145 mmol/L Potassium, pl 5.1(H) 3.3 - 4.9 mmol/L [facility] Comment:Hemolyzed; Potassium value may be falsely elevated by as much as 0.3-0.5 mmol/L. Suggest redraw and reanalysis. Chloride 111(H) 97 - 110 mmol/L [facility] CO2 26 22 - 32 mmol/L [facility] Anion gap 6 2 - 15 mmol/L [facility] BUN 22 6 - 25 mg/dL [facility] Creatinine 1.93(H) 0.60 - 1.10 mg/dL [facility] Glucose 108 70 - 199 mg/dL [facility] Comment: Interpretive Data Fasting glucose [...] 2022. Calcium 8.8 8.5 - 10.3 mg/dL [facility] Phosphorus, pl 3.5 2.3 - 4.5 mg/dL [facility] Albumin 3.4(L) 3.5 - 5.0 g/dL [facility] Blood 06/02/2024 8:43 AM CDT 06/02/2024 9:14 AM CDT us Patricia Davidson MD PhD LAB BLOOD ORDERABLES Final Result [facility] Donell [facility] Department [place] [address] * Immunoglobulin profile (06/01/2024 9:10 PM CDT) Immunoglobulin G 882 700 - 1,600 mg/dL Immunoglobulin A 213 70 - 400 mg/dL [facility] Immunoglobulin M 92 40 - 230 mg/dL [facility] Blood 06/01/2024 9:10 PM CDT 06/01/2024 10:48 PM CDT Pineda Barrios MD LAB BLOOD ORDE COURTNEY Final Result [facility] One [facility] Department [place] [address] * Differential, auto (06/01/2024 10:03 AM CDT) Pathologist [facility] [place] Neutrophil abs 3.5 1.5 - 6.5 K/cumm Imm gran abs 0.0 0.0 - 0.1 K/cumm [facility] Lymphocyte abs 1.3 0.8 - 3.3 K/cumm [facility] Monocyte abs 0.4 0.2 - 0.8 K/cumm [facility] Eosinophil abs 0.2 0.0 - 0.5 K/cumm [facility] Basophil abs 0.0 0.0 - 0.1 K/cumm [facility] Neutrophil pct 65.5 % [facility] Comment: Interpretive Data Percent cell count reference ranges are not reported, since discordance with absolute values may lead to misinterpretation of CBC data. Current Interpretive Data was last revised on 2017. Imm gran pct 0.2 % [facility] Comment: Interpretive Data Percent cell count reference ranges are not reported, since discordance with absolute values may lead to misinterpretation of CBC data. Current Interpretive Data was last revised on 2017. Lymphocyte pct 23.6 % [facility] Comment: Interpretive Data Percent cell count reference ranges are not reported, since discordance with absolute values may lead to misinterpretation of CBC data. Current Interpretive Data was last revised on 2017. Monocyte pct 7.7 % [facility] Comment: Interpretive Data Percent cell count reference ranges are not reported, since discordance with absolute values may lead to misinterpretation of CBC data. Current Interpretive Data was last revised on 2017. Eosinophil pct 2.8 % [facility] Comment: Interpretive Data Percent cell count reference ranges are not reported, since discordance with absolute values may lead to misinterpretation of CBC data. Current Interpretive Data was last revised on 2017. Basophil pct 0.2 % [facility] Comment: Interpretive Data Percent cell count reference ranges are not reported, since discordance with absolute values may lead to misinterpretation of CBC data. Current Interpretive Data was last revised on 2017. Blood 06/01/2024 10:0 3 AM CDT 06/01/2024 10:19 AM CDT us Patricia Davidson MD PhD LAB BLOOD ORDERABLES Final Result [facility] One [facility] Department [place] [address] * (ABNORMAL) CBC with auto differential (06/01/2024 10:03 AM CDT) WBC 5.3 3.8 - 9.9 K/cumm Hgb 12.1 11.9 - 15.5 g/dL [facility] Hct 34.0(L) 35.6 - 45.5 % [facility] Plt 98(L) 150 - 400 K/cumm [facility] MPV 11.6 9.1 - 12.3 fL [facility] RBC 3.44(L) 3.90 - 5.20 M/cumm [facility] MCV 98.8(H) 81.3 - 96.4 fL [facility] MCH 35.2(H) 27.1 - 33.3 pg [facility] MCHC 35.6 32.3 - 35.7 g/dL [facility] RDW CV 12.8 11.1 - 14.9 % [facility] RDW SD 45.8 35.7 - 48.1 fL [facility] NRBC abs 0.00 0.00 - 0.01 K/cumm [facility] Blood 06/01/2024 10:0 3 AM CDT 06/01/2024 10:19 AM CDT Patricia Davidson MD PhD LAB BLOOD ORDERABLES Final Result Performing Organization Address [facility] de Phone Number [facility] [place] [address] * Tacrolimus level trough (06/01/2024 9:20 AM CDT) Tacrolimus trough 6.5 ng/mL Comment: Interpretive Data Testing performed by liquid chromatography-tandem mass spectrometry. Therapeutic concentrations vary depending on type of transplanted organ and time elapsed since transplant. Typical trough concentrations range from 5-15 ng/mL. This test was developed and its performance characteristics determined by the [facility] consistent with CLIA requirements. This test has not been cleared or approved by the US Food and Drug administration. Current interpretive data last reviewed 2019. Blood 06/01/2024 9:20 AM CDT 06/01/2024 9:53 AM CDT Result [facility] Patricia Davidson MD PhD LAB BLOOD ORDERABLES Final Result Performing Organization Address [facility] [place] [address] * (ABNORMAL) eGFR (06/01/2024 6:17 AM CDT) [...] MD PhD LAB BLOOD ORDERABLES Final Result [facility] One [facility] Department [place] [address] * (ABNORMAL) Renal function panel (06/01/2024 6:17 AM CDT) Sodium 135 135 - 145 mmol/L Potassium, pl 4.5 3.3 - 4.9 mmol/L [facility] Chloride 103 97 - 110 mmol/L [facility] CO2 22 22 - 32 mmol/L [facility] Anion gap 10 2 - 15 mmol/L [facility] BUN 24 6 - 25 mg/dL [facility] Creatinine 2.15(H) 0.60 - 1.10 mg/dL [facility] Glucose 120 70 - 199 mg/dL [facility] Comment: Interpretive Data Fasting glucose [...] 2022. Calcium 8.7 8.5 - 10.3 mg/dL [facility] Phosphorus, pl 2.8 2.3 - 4.5 mg/dL [facility] Albumin 3.6 3.5 - 5.0 g/dL [facility] Blood 06/01/2024 6:17 AM CDT 06/01/2024 6:52 AM CDT us Patricia Davidson MD PhD LAB BLOOD ORDERABLES Final Result [facility] [place] [address] * TRANSTHORACIC ECHO (TTE) COMPLETE W DOPPLER/CF WO CONTRAST (05/31/2024 2:50 PM CDT) Anatomical Region Laterality Modality Ultrasound 05/31/2024 2:12 PM CDT Narrative 05/31/2024 3:36 PM CDT [facility] [place] [address] Transthoracic Echocardiographic Report Patient Name: MISHA BROWNE : 1980 (43y 7m) Gender: F Study Date: 05/31/2024 02:12:33 PM Ht(Inch): 63 Wt(Lb): 184.97 BSA: 1.93 Siding Stapler: Elisabeth Em RDCS Location: [id number] Order Provider: PINEDA HINOJOSA Heart Rate: 61 [...] trileaflet aortic valve. Mild aortic valve regurgitation (BPN=775 ms). The mean transaortic gradient is 4 [...] LA Length 4C 6.78 cm AI Decel [place] 2.15 m/s2 LA Length 2C 6.66 cm [...] Procedure Note Stalin Krishna MD - 05/31/2024 [facility] [place] [address] Transthoracic Echocardiographic Report Patient Name: MISHA BROWNE : 1980 (43y 7m) Gender: F Study Date: 05/31/2024 02:12:33 PM Ht(Inch): 63 Wt(Lb): 184.97 BSA: 1.93 Siding Stapler: Elisabeth Em RDCS Location: [place] [address] Order Provider:PINEDA HINOJOSA Heart Rate: 61 BMI: [...] Normal trileaflet aortic valve. Mild aortic valve regurgitation(VQB=065 ms). The mean transaortic gradient is 4 [...] [ -25.0 - -18.0 ] AI Decel [id number] sec LA Length 4C 6.78 cm AI Decel Slope2.15 m/s2 LA Length 2C 6.66 cm AI XMD326.76 msec LA Volume BP 83.77 ml MV [...] [ 1.71 - 5.00 ] MV Decel Iqbm366.34 msec [ 104.00 - 258.00 ] RA [...] MD PhD LAB BLOOD ORDERABLES Final Result [facility] One [facility] Department [place] [address] * Differential, auto (05/31/2024 4:55 AM CDT) Neutrophil abs 4.9 1.5 - 6.5 K/cumm Imm gran abs 0.0 0.0 - 0.1 K/cumm [facility] Lymphocyte abs 1.4 0.8 - 3.3 K/cumm [facility] Monocyte abs 0.6 0.2 - 0.8 K/cumm [facility] Eosinophil abs 0.1 0.0 - 0.5 K/cumm [facility] Basophil abs 0.0 0.0 - 0.1 K/cumm [facility] Neutrophil pct 69.8 % [facility] Comment: Interpretive Data Percent cell count reference ranges are not reported, since discordance with absolute values may lead to misinterpretation of CBC data. Current Interpretive Data was last revised on 2017. Imm gran pct 0.6 % [facility] Comment: Interpretive Data Percent cell count reference ranges are not reported, since discordance with absolute values may lead to misinterpretation of CBC data. Current Interpretive Data was last revised on 2017. Lymphocyte pct 19.7 % [facility] Comment: Interpretive Data Percent cell count reference ranges are not reported, since discordance with absolute values may lead to misinterpretation of CBC data. Current Interpretive Data was last revised on 2017. Monocyte pct 8.0 % [facility] Comment: Interpretive Data Percent cell count reference ranges are not reported, since discordance with absolute values may lead to misinterpretation of CBC data. Current Interpretive Data was last revised on 2017. Eosinophil pct 1.9 % [facility] Comment: Interpretive Data Percent cell count reference ranges are not reported, since discordance with absolute values may lead to misinterpretation of CBC data. Current Interpretive Data was last revised on 2017. Basophil pct 0.0 % [facility] Comment: Interpretive Data Percent cell count reference ranges are not reported, since discordance with absolute values may lead to misinterpretation of CBC data. Current Interpretive Data was last revised on 2017. Blood 05/31/2024 4:55 AM CDT 05/31/2024 5:49 AM CDT Patricia Davidson MD PhD LAB BLOOD ORDERABLES Final Result Performing Organization Address [facility] de Phone Number [facility] [place] [address] * Tacrolimus level trough (05/31/2024 4:55 AM CDT) [facility] Tacrolimus trough 9.2 ng/mL Comment: Interpretive Data Testing performed by liquid chromatography-tandem mass spectrometry. Therapeutic concentrations vary depending on type of transplanted organ and time elapsed since transplant. Typical trough concentrations range from 5-15 ng/mL. This test was developed and its performance characteristics determined by the [facility] consistent with CLIA requirements. This test has not been cleared or approved by the [place] Food and Drug administration. Current interpretive data last reviewed 2019. Blood 05/31/2024 4:55 AM CDT 05/31/2024 5:49 AM CDT Patricia Davidson MD PhD LAB BLOOD ORDERABLES Final Result Performing Organization Address [facility] [place] [address] * (ABNORMAL) CBC with auto differential (05/31/2024 4:55 AM CDT) [facility] WBC 7.0 3.8 - 9.9 K/cumm Hgb 11.2(L) 11.9 - 15.5 g/dL [facility] Hct 31.4(L) 35.6 - 45.5 % [facility] Plt 102(L) 150 - 400 K/cumm [facility] MPV 10.9 9.1 - 12.3 fL [facility] RBC 3.15(L) 3.90 - 5.20 M/cumm [facility] MCV 99.7(H) 81.3 - 96.4 fL [facility] MCH 35.6(H) 27.1 - 33.3 pg [facility] MCHC 35.7 32.3 - 35.7 g/dL [facility] RDW CV 12.9 11.1 - 14.9 % [facility] RDW SD 46.0 35.7 - 48.1 fL [facility] NRBC abs 0.00 0.00 - 0.01 K/cumm [facility] Blood 05/31/2024 4:55 AM CDT 05/31/2024 5:49 AM CDT us Patricia Davidson MD PhD LAB BLOOD ORDERABLES Final Result [facility] One [facility] Department [place] [address] * (ABNORMAL) Renal function panel (05/31/2024 4:55 AM CDT) Pathologist [facility] Sodium 136 135 - 145 mmol/L Potassium, pl 4.6 3.3 - 4.9 mmol/L [facility] Chloride 105 97 - 110 mmol/L [facility] CO2 23 22 - 32 mmol/L [facility] Anion gap 8 2 - 15 mmol/L [facility] BUN 30(H) 6 - 25 mg/dL [facility] Creatinine 2.90(H) 0.60 - 1.10 mg/dL [facility] Glucose 119 70 - 199 mg/dL [facility] Comment: Interpretive Data Fasting glucose [...] 2022. Calcium 8.4(L) 8.5 - 10.3 mg/dL [facility] Phosphorus, pl 3.2 2.3 - 4.5 mg/dL [facility] Albumin 3.6 3.5 - 5.0 g/dL [facility] Blood 05/31/2024 4:55 AM CDT 05/31/2024 5:48 AM CDT Result [facility] Patricia Davidson MD PhD LAB BLOOD ORDERABLES Final Result Performing Organization Address City/[facility] Co de Phone Number [facility] [place] [address] * Sodium, urine, random (05/30/2024 5:23 PM CDT) Sodium, ur <20 mmol/L Comment: Interpretive Data No reference range established. Current interpretive data was last revised 2018. Urine 05/30/2024 5:23 PM CDT 05/30/2024 5:59 PM CDT Result [facility] Pineda Barrios MD LAB URINE ORDE RABLES Final Result Performing Organization Address [facility] Co de Phone Number [facility] [place] [address] * Creatinine, urine, random (05/30/2024 5:23 PM CDT) Creatinine Ur 121.1 mg/dL Comment: Interpretive Data No reference range established. Current interpretive data was last revised 2018. Urine 05/30/2024 5:23 PM CDT 05/30/2024 5:59 PM CDT Result [facility] Pnieda Barrios MD LAB URINE ORDE RABLES Final Result Performing Organization Address [facility] Co de Phone Number [facility] [address] * BK virus PCR quantitative Blood (05/30/2024 4:44 AM CDT) Pathologist [facility] BKV DNA result, pl Not Detected [facility] Comment: The quantifiable range of this assay is 21.5 IU/mL to 100,000,000 IU/mL (1.33 log IU/mL to 8.00 log IU/mL). Testing was performed by the GASTON 6800 BKV Quantatitive Test version 2.0 ([employer] Testing performed at [facility] Current Interpretive Data was last revised on 2021. Blood 05/30/2024 4:44 AM CDT 05/30/2024 5:55 AM CDT Patricia Davidson MD PhD LAB MICROBIOLOGY - GENERAL ORDERABLES Final Result Performing Organization Address City/[facility]/ZIP Co de Phone Number [facility] [address] [facility] * Collection Task for HLA Antibody Screen (05/30/2024 4:44 AM CDT) [facility] HLA Antibody Screen By Single Antigen Received Blood 05/30/2024 4:44 AM CDT 05/30/2024 9:01 AM CDT Patricia Davidson MD PhD LAB BLOOD ORDERABLES Final Result Performing Organization Address City/[facility]/ZIP Co de Phone Number [facility] [address] * Cytomegalovirus (CMV) DNA PCR, quantitative Blood (05/30/2024 4:44 AM CDT) [facility] CMV DNA Not Detected [facility] Comment: Interpretive Data: The quantifiable range of this assay is 34 IUnits/mL to 10,000,000 IUnits/mL (1.53 log IUnits/mL to 7.0 log IUnits/mL). Testing was performed by the GASTON 6800 CMV Test ([employer] Testing performed at [facility]. Current interpretive data was last revised on 2020. Blood 05/30/2024 4:44 AM CDT 05/30/2024 5:55 AM CDT Patricia Davidson MD PhD LAB MICROBIOLOGY - GENERAL ORDERABLES Final Result Performing Organization Address City/[facility]/ZIP Co de Phone Number [facility] [place] [address] [facility] * (ABNORMAL) eGFR (05/30/2024 4:44 [...] BLOOD ORDERABLES Final Result Performing Organization Address City/[facility]/ZIP Co de Phone Number [facility] [place] [address] * Differential, auto (05/30/2024 4:44 AM CDT) Neutrophil abs 5.0 1.5 - 6.5 K/cumm Imm gran abs 0.0 0.0 - 0.1 K/cumm [facility] Lymphocyte abs 1.7 0.8 - 3.3 K/cumm [facility] Monocyte abs 0.5 0.2 - 0.8 K/cumm [facility] Eosinophil abs 0.1 0.0 - 0.5 K/cumm [facility] Basophil abs 0.0 0.0 - 0.1 K/cumm [facility] Neutrophil pct 68.2 % [facility] Comment: Interpretive Data Percent cell count reference ranges are not reported, since discordance with absolute values may lead to misinterpretation of CBC data. Current Interpretive Data was last revised on 2017. Imm gran pct 0.5 % [facility] Comment: Interpretive Data Percent cell count reference ranges are not reported, since discordance with absolute values may lead to misinterpretation of CBC data. Current Interpretive Data was last revised on 2017. Lymphocyte pct 22.6 % [facility] Comment: Interpretive Data Percent cell count reference ranges are not reported, since discordance with absolute values may lead to misinterpretation of CBC data. Current Interpretive Data was last revised on 2017. Monocyte pct 6.8 % [facility] Comment: Interpretive Data Percent cell count reference ranges are not reported, since discordance with absolute values may lead to misinterpretation of CBC data. Current Interpretive Data was last revised on 2017. Eosinophil pct 1.8 % [facility] Comment: Interpretive Data Percent cell count reference ranges are not reported, since discordance with absolute values may lead to misinterpretation of CBC data. Current Interpretive Data was last revised on 2017. Basophil pct 0.1 % [facility] Comment: Interpretive Data Percent cell count reference ranges are not reported, since discordance with absolute values may lead to misinterpretation of CBC data. Current Interpretive Data was last revised on 2017. Blood 05/30/2024 4:44 AM CDT 05/30/2024 5:30 AM CDT us Patricia Davidson MD PhD LAB BLOOD ORDERABLES Final Result Performing Organization Address [facility] de Phone Number [facility] [place] [address] * Tacrolimus level trough (05/30/2024 4:44 AM CDT) [facility] Tacrolimus trough 16.5 ng/mL Comment: Interpretive Data Testing performed by liquid chromatography-tandem mass spectrometry. Therapeutic concentrations vary depending on type of transplanted organ and time elapsed since transplant. Typical trough concentrations range from 5-15 ng/mL. This test was developed and its performance characteristics determined by the [facility] consistent with CLIA requirements. This test has not been cleared or approved by the [place] Food and Drug administration. Current interpretive data last reviewed 2019. Blood 05/30/2024 4:44 AM CDT 05/30/2024 5:30 AM CDT Patricia Davidson MD PhD LAB BLOOD ORDERABLES Final Result Performing Organization Address [facility] Co de Phone Number [facility] Department [place] [address] * (ABNORMAL) CBC with auto differential (05/30/2024 4:44 AM CDT) [facility] WBC 7.4 3.8 - 9.9 K/cumm Hgb 12.0 11.9 - 15.5 g/dL [facility] Hct 33.9(L) 35.6 - 45.5 % [facility] Plt 130(L) 150 - 400 K/cumm [facility] MPV 10.8 9.1 - 12.3 fL [facility] RBC 3.40(L) 3.90 - 5.20 M/cumm [facility] MCV 99.7(H) 81.3 - 96.4 fL [facility] MCH 35.3(H) 27.1 - 33.3 pg [facility] MCHC 35.4 32.3 - 35.7 g/dL [facility] RDW CV 13.0 11.1 - 14.9 % [facility] RDW SD 47.4 35.7 - 48.1 fL [facility] NRBC abs 0.00 0.00 - 0.01 K/cumm [facility] Blood 05/30/2024 4:44 AM CDT 05/30/2024 5:30 AM CDT us Patricia Davidson MD PhD LAB BLOOD ORDERABLES Final Result [facility] One [facility] Department [place] [address] * (ABNORMAL) Renal function panel (05/30/2024 4:44 AM CDT) Sodium 142 135 - 145 mmol/L Potassium, pl 4.2 3.3 - 4.9 mmol/L [facility] Chloride 108 97 - 110 mmol/L [facility] CO2 25 22 - 32 mmol/L [facility] Anion gap 9 2 - 15 mmol/L [facility] BUN 23 6 - 25 mg/dL [facility] Creatinine 2.76(H) 0.60 - 1.10 mg/dL [facility] Glucose 123 70 - 199 mg/dL [facility] Comment: Interpretive Data Fasting glucose [...] 2022. Calcium 9.1 8.5 - 10.3 mg/dL [facility] Phosphorus, pl 3.6 2.3 - 4.5 mg/dL [facility] Albumin 3.8 3.5 - 5.0 g/dL [facility] Blood 05/30/2024 4:44 AM CDT 05/30/2024 5:31 AM CDT Patricia Davidson MD PhD LAB BLOOD ORDERABLES Final Result [facility] One [facility] Department [place] [address] * HLA Donor Specific Antibody Report (05/30/2024 [...] BLOOD ORDERABLES Final Result Performing Organization Address City/[facility]/ZIP Co de Phone Number [facility] * ECG 12 lead (05/30/2024 1:10 AM CDT) Ventricular Rate EKG/Min 75 BPM [facility] Atrial Rate 75 BPM [facility] GA-Interval (MSEC) 160 ms [facility] QRS-Interval (MSEC) 82 ms [facility] QT-Interval (MSEC) 456 ms [facility] QTc 509 ms [facility] P [place] 31 degrees [facility] R [place] -9 degrees [facility] T [place] 44 degrees [facility] Diagnosis Normal sinus rhythm Poor r wave progression associated with abnormal lead placement, obesity, pulmonary disease, anterior infarction. Prolonged QT Abnormal ECG When compared with ECG of 20-APR-2020 11:02, QRS voltage has increased Confirmed by BRODIE LEIGH M.D ([id number]) on 05/30/2024 12:29:55 PM [facility] 05/30/2024 1:10 AM CDT 05/30/2024 12:29 PM CDT us Patricia Davidson MD PhD ECG ORDERABLES Final Resul t [facility] * US Renal Transplant W Dopplers (05/29/2024 [...] by: Ziyad Purdy M.D. Jessee Mandel MD [facility] US PROCEDURES Aniya l Result * Influenza A/B, RSV, and COVID-19 PCR Nasopharyngeal (05/29/2024 4:10 PM CDT) Pathologist [facility] [place] COVID-19 RNA Negative Negative [facility] Influenza A RNA Negative Negative [facility] Influenza B RNA Negative Negative [facility] RSV RNA Negative Negative [facility] Comment: Interpretive data: Testing performed by [facility] ([phone]). This test is performed using the [employer] Xpert Xpress CoV-2/Flu/RSV plus assay. This is a multiplex, real-time reverse transcriptase PCR assay intended for the qualitative detection of nucleic acid from SARS-CoV-2, influenza A, influenza B, and respiratory syncytial virus. This assay has been cleared by the [place] Food and Drug administration. The performance characteristics have been verified by the [facility]. Results must be considered in the clinical context, and a negative result does not rule out infection. Interpretive Data last revised 2023 Nasopharyngeal 05/29/2024 4: 10 PM CDT 05/29/2024 5:03 PM CDT Narrative [facility] - 05/29/2024 5:51 PM CDT Is the Patient experiencing symptoms consistent with COVID?->Unknown Mona Barrios MD LAB MICROBIOLOGY - GEN ERAL ORDERABLES Final Result [facility] One [facility] Department [place] [address] [facility] * Respiratory pathogen panel Nasopharyngeal (05/29/2024 4:10 PM CDT) Pathologist [facility] Influenza A RNA Not Detected Not Detected Influenza B RNA Not Detected Not Detected [facility] RSV RNA Not Detected Not Detected [facility] COVID-19 RNA Not Detected Not Detected [facility] Coronavirus 229E RNA Not Detected Not Detected [facility] Coronavirus HKU1 RNA Not Detected Not Detected [facility] Coronavirus NL63 RNA Not Detected Not Detected [facility] Coronavirus OC43 RNA Not Detected Not Detected [facility] Adenovirus DNA Not Detected Not Detected [facility] Metapneumovirus RNA Not Detected Not Detected [facility] Rhinovirus/Enterov irus RNA Not Detected Not Detected [facility] Parainfluenza 1 RNA Not Detected Not Detected [facility] Parainfluenza 2 RNA Not Detected Not Detected [facility] Parainfluenza 3 RNA Not Detected Not Detected [facility] Parainfluenza 4 RNA Not Detected Not Detected [facility] B. pertussis DNA Not Detected Not Detected [facility] B. parapertussis DNA Not Detected Not Detected [facility] C. pneumoniae DNA Not Detected Not Detected [facility] M. pneumoniae DNA Not Detected Not Detected [facility] Nasopharyngeal 05/29/2024 4: 10 PM CDT 05/30/2024 6:07 AM CDT Narrative [facility] - 05/30/2024 7:05 AM CDT Interpretive Data The [employer] Respiratory Panel (RP2.1) assay is [...] assay has FDA clearance for testing of COMPUTER PROGRAMMING MANAGER swabs. The performance of additional specimen types has been assessed by the performing laboratory. The performance characteristics of this assay have been determined by [facility] Molecular Infectious Disease Laboratory. Current interpretive data was last revised on 21. Pineda Barrios MD LAB MICROBIOLO GY - GENERAL ORDERABLES Final Result Performing Organization Address [facility]/ZIP Co de Phone Number [facility] One [facility] Department [place] [address] * Urinalysis reflex to microscopic (05/29/2024 3:31 PM CDT) Color, ur Yellow Yellow Clarity, ur Clear Clear [facility] Specific gravity, ur 1.013 1.003 - 1.030 [facility] pH, urine 5.5 [facility] Comment: Interpretive Data U rine pH is affected by diet, medications, systemic acid-base disturbances, and renal tubular function. pH may affect urinary stone formation. For example, urine pH below 6.0 may help reduce the tendency for calcium phosphate stones and pH greater than 6.0 may reduce the tendency for uric acid stone formation. Source: [facility] [employer] Current Interpretive Data was last revised on 2017 Protein, ur ql Trace Negative [facility] Glucose, ur ql Negative Negative [facility] Ketones, ur Negative Negative [facility] Bilirubin, ur Negative Negative [facility] Blood, ur Negative Negative [facility] Urobilinogen, ur <2.0 <2.0 mg/dL [facility] Nitrite, ur Negative Negative [facility] Leukocyte esterase, ur Negative Negative [facility] UA reflex comment Reflex conditions for microscopic UA not met. [facility] Urine 05/29/2024 3:31 PM CDT 05/29/2024 3:38 PM CDT Shruti Damon MD LAB URINE ORDERABLES Aniya l Result Performing Organization Address City/[facility]/ZIP Co de Phone Number [facility] One [facility] Department [place] [address] * POCT hCG, urine (05/29/2024 3:30 PM [...] ORDERABLES - DEVICE F inal Result [facility] [place] [address] * (ABNORMAL) eGFR (05/29/2024 2:57 PM CDT) Pathologist [facility] eGFR 30(L) >=60 mL/min/1. 73 m2 Comment: [...] LAB BLOOD ORDERABLES Aniya l Result [facility] One [facility] Department [place] [address] * Differential, auto (05/29/2024 2:57 PM CDT) Neutrophil abs 5.5 1.5 - 6.5 K/cumm Imm gran abs 0.0 0.0 - 0.1 K/cumm [facility] Lymphocyte abs 0.9 0.8 - 3.3 K/cumm [facility] Monocyte abs 0.4 0.2 - 0.8 K/cumm [facility] Eosinophil abs 0.1 0.0 - 0.5 K/cumm [facility] Basophil abs 0.0 0.0 - 0.1 K/cumm [facility] Neutrophil pct 79.6 % [facility] Comment: Interpretive Data Percent cell count reference ranges are not reported, since discordance with absolute values may lead to misinterpretation of CBC data. Current Interpretive Data was last revised on 2017. Imm gran pct 0.4 % [facility] Comment: Interpretive Data Percent cell count reference ranges are not reported, since discordance with absolute values may lead to misinterpretation of CBC data. Current Interpretive Data was last revised on 2017. Lymphocyte pct 13.7 % [facility] Comment: Interpretive Data Percent cell count reference ranges are not reported, since discordance with absolute values may lead to misinterpretation of CBC data. Current Interpretive Data was last revised on 2017. Monocyte pct 5.5 % [facility] Comment: Interpretive Data Percent cell count reference ranges are not reported, since discordance with absolute values may lead to misinterpretation of CBC data. Current Interpretive Data was last revised on 2017. Eosinophil pct 0.7 % [facility] Comment: Interpretive Data Percent cell count reference ranges are not reported, since discordance with absolute values may lead to misinterpretation of CBC data. Current Interpretive Data was last revised on 2017. Basophil pct 0.1 % [facility] Comment: Interpretive Data Percent cell count reference ranges are not reported, since discordance with absolute values may lead to misinterpretation of CBC data. Current Interpretive Data was last revised on 2017. Blood 05/29/2024 2:57 PM CDT 05/29/2024 3:21 PM CDT Shruti Damon MD LAB BLOOD ORDERABLES Aniya andrez Result Performing Organization Address [facility] Co de Phone Number [facility] Department [place] [address] * (ABNORMAL) CBC with auto differential (05/29/2024 2:57 PM CDT) [facility] WBC 6.9 3.8 - 9.9 K/cumm Hgb 13.5 11.9 - 15.5 g/dL [facility] Hct 38.8 35.6 - 45.5 % [facility] Plt 129(L) 150 - 400 K/cumm [facility] MPV 10.7 9.1 - 12.3 fL [facility] RBC 3.88(L) 3.90 - 5.20 M/cumm [facility] MCV 100.0(H) 81.3 - 96.4 fL [facility] MCH 34.8(H) 27.1 - 33.3 pg [facility] MCHC 34.8 32.3 - 35.7 g/dL [facility] RDW CV 13.0 11.1 - 14.9 % [facility] RDW SD 47.6 35.7 - 48.1 fL [facility] NRBC abs 0.00 0.00 - 0.01 K/cumm [facility] Blood Venous blood specimen / Unknown 05/29/2024 2:57 PM CDT 05/29/2024 3:21 PM CDT Shruti Damon MD LAB BLOOD ORDERABLES Aniya maguire Result Performing Organization Address [facility]/ZIP Co de Phone Number [facility] [place] [address] * Tacrolimus level random (05/29/2024 2:57 PM CDT) [facility] Tacrolimus random 20.2 ng/mL Comment: Interpretive Data Testing performed by liquid chromatography-tandem mass spectrometry. Therapeutic concentrations vary depending on type of transplanted organ and time elapsed since transplant. Typical trough concentrations range from 5-15 ng/mL. This test was developed and its performance characteristics determined by the [facility] consistent with CLIA requirements. This test has not been cleared or approved by the [place] Food and Drug administration. Current interpretive data last reviewed 2019. Blood 05/29/2024 2:57 PM CDT 05/29/2024 3:28 PM CDT Pineda Barrios MD LAB BLOOD ORDE RABVERONICA Final Result Performing Organization Address City/[facility]/ZIP Co de Phone Number [facility] [place] [address] * Lipase (05/29/2024 2:57 PM CDT) [facility] Lipase 12 10 - 99 Units/L Blood Venous blood specimen / Unknown 05/29/2024 2:57 PM CDT 05/29/2024 3:20 PM CDT Shruti Damon MD LAB BLOOD ORDERABLES Aniya l Result Performing Organization Address City/[facility]/ZIP Co de Phone Number [facility] [place] [address] * (ABNORMAL) Comprehensive metabolic panel (05/29/2024 2:57 PM CDT) [facility] Sodium 137 135 - 145 mmol/L Potassium, pl 4.6 3.3 - 4.9 mmol/L [facility] Chloride 107 97 - 110 mmol/L [facility] CO2 18(L) 22 - 32 mmol/L [facility] Anion gap 12 2 - 15 mmol/L [facility] BUN 22 6 - 25 mg/dL [facility] Creatinine 2.10(H) 0.60 - 1.10 mg/dL [facility] Glucose 185 70 - 199 mg/dL [facility] Comment: Interpretive Data Fasting glucose [...] 2022. Calcium 9.9 8.5 - 10.3 mg/dL [facility] Bilirubin, total 0.8 0.1 - 1.2 mg/dL [facility] Protein, pl 7.6 6.5 - 8.5 g/dL [facility] Albumin 4.0 3.5 - 5.0 g/dL [facility] Alk phos 372(H) 40 - 130 Units/L [facility] ALT 22 7 - 45 Units/L [facility] AST 28 10 - 45 Units/L [facility] Blood 05/29/2024 2:57 PM CDT 05/29/2024 3:20 PM CDT Shruti Damon MD LAB BLOOD ORDERABLES Aniya l Result [facility] [place] [address] * Hepatitis panel, acute (04/16/2020 6:35 AM 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 Current interpretive data was last revised on 19. Hep B core IgM Nonreactive Nonreactive [facility] Comment: Interpretive Data If HepB Core IgM Ab is reported as Equivocal, a new sample should be drawn in two weeks for testing. Current interpretive data was last revised on 19. Hep C Ab Nonreactive Nonreactive [facility] Comment:Antibodies to HCV no t detected. Does NOT exclude the possibility of recent exposure to HCV. HepBsAg Nonreactive Nonreactive [facility] Blood specimen (specimen) 04/16/2020 6:35 AM CLOTHING SUPERVISOR 04/16/2020 7:34 AM CLOTHING SUPERVISOR us Jacob Gates MD LAB MICROBIOLOGY - GENER AL ORDERABLES Final Result [facility] [place] [address] from Last 3 Months or Most Recently Relevant to Health Maintenance Insurance [place] OPEN ACCESS [facility] HE[facility] [place] Advance Directives For more information, please contact: [phone] * Full Code (Latest Code Status on File) Date Activated Date Inactivated Comments 05/29/2024 10:30 PM 06/13/2024 7:10 PM * Full Code Date Activated Date Inactivated Comments 04/16/2020 1:16 AM 04/23/2020 6:51 PM * Full Code Date Activated Date Inactivated Comments 08/14/2019 3:14 PM 08/14/2019 9:26 PM * Full Code Date Activated Date Inactivated Comments 07/25/2019 6:15 AM 07/25/2019 11:51 PM Care Teams Brown Sourer Relationship Specialty Start Date End Date Lyly Fiore NP [address] [place] [address] PCP - General Nurse Practitioner 05/29/24 Beatriz Lee MD [address] [place] [address] Referring Physician Gastroenterology 07/25/19 Taylor Kitchen, storm door makerHob Machine Operator 05/29/24
--- OUTSIDE RECORDS SUMMARY | 2024-07-24 15:17 | XMS_ITS | Encounter Summary ---
Author Organization [facility] Address [address] [place] [address] Care Team Providers Care Lawn Service Supervisor Name Role Phone Ashley ZUNIGA MD, Hermes Perez Primary Care Provid er Lyly Fiore NP Primary Care Provider Encounter Details Date Type Department Care Team ([facility] st Contact Info) Description 06/03/2017 Abstract [facility] CONVERSION [address] [place] [address] , Generic ConversionMD Social History Tobacco Use Types Packs/Day Years Used Date Smoking Tobacco: Never Assessed Comments Unknown Sex and Gender Information Value Date Recorded Sex Assigned at Female 04/05/2024 4:26 PM SENIOR FINANCIAL ANALYST Legal Sex Female 9:15 PM SENIOR FINANCIAL ANALYST Gender Identity Not on file Sexual Orientation Not on file documented as of this encounter Plan of Treatment Not on file documented as of this encounter Visit Diagnoses Not on filedocumented in this encounter Additional Health Concerns Infection Onset Date Last Indicated Resolved Time COVID-19 Rule Out 03/30/2020 03/30/2020 03/30/2020 9:29 PM SENIOR FINANCIAL ANALYST COVID-19 Rule Out 03/30/2020 03/30/2020 03/31/2020 12:28 PM SENIOR FINANCIAL ANALYST COVID-19 Rule Out 02/16/2024 02/16/2024 02/16/2024 9:16 PM SENIOR FINANCIAL ANALYST Rhinovirus 02/16/2024 02/16/2024 02/26/2024 12:3 2 AM SENIOR FINANCIAL ANALYST documented as of this encounter Care Teams Lawn Service Supervisor Relationship Specialty Start Date End Date Hermes Ramirez III, MD [address] [address] PCP - General FAMILY PRACTICE 06/20/17 04/13/24 Lyly Fiore NP [address] [place] [address] PCP - General NURSE PRACTITIONER 04/14/24 documented as of this encounter
--- NOTE | 2024-07-24 16:30 | PC.NURSE ---
1500 pt asked to move to another area to help make room for a critical pt arriving soon via ambulance. pt became upset and verbal about being kicked out of the er. pt informed her treatment will continue in the new space. pt angry that she is only receiving an oral med and then being discharged. requests to speak with erp again. 1520 pt now asking to speak with charge nurse. 1540 pt walked out without discharge instructions. refused oral pain med
--- NOTE | 2024-07-25 07:40 | PC.NURSE ---
I spoke with pt on 07/24/24 while she was still in the department. She was upset that she was kicked out of the ED and that she was ordered pain medication that was not going to work, I already know this, I need a shot. The medication that was ordered was a Percocet. When questioned how she knows this would not work she became upset and said last time she got a shot of dilaudid, stating that she has chronic pain, has been set up with pain mgmt on 08/15/24. Pt directly came to ED following an ortho appointment at another facility. When questioned in regards to the plan of care that was discussed at ortho today for her pain control, she replied they told me to go to the ED. I again asked her how they plan on controlling her pain until 08/15/24, she again replied with ED. I advised her that the ED is not a plan of care for chronic pain mgmt, and dilaudid is not typically administered for chronic pain. Pt then circled back around to the fact that she was placed in the empty waiting room, told she would receive pain medication and be discharged. I explained to pt that all the rooms were full, an ambulance was on the way and she was the only stable pt that did not require a monitor at the time, therefore she was moved to the waiting area after she was deemed stable and had been evaluated by a provider. She was upset because she reports she was told we will give you the pill and see how it works, if it doesn't work then we will get you something else. Pt then begins to complain about it taking a long time to get the medication, she initially refused to the RN. I asked pt if she was willing to take the medication and was told I don't know if I want it, I want a shot. Educated pt again on the use of dilaudid and the fact that the ERP did not find it appropriate to order at this time. Pt then agrees to take the percocet, advised someone would have to go upstairs and get the medication and would be down to administer to her. She reports I was told I was going to be treated in the waiting room, when asked if she was treated in the waiting room, she replied no. Pt was spoken to and found to be sitting in the side registration room with the door closed. When the RN returned with her medication, pt had left the facility per registration.
== END 2024-07-24 15:40 | disposition home or self-care (01) ==
PROVIDERS: Emergency Provider Internal Medicine Critical Care Medicine
DX: K27.9 Peptic ulcer, site unspecified, unspecified as acute or chronic, without hemorrhage or perforation (principal); M54.50 Low back pain, unspecified
CPT/HCPCS: 99283

== ENCOUNTER 2024-10-05 20:27 | Emergency (ER) | payer OTHER, SELFPAY ==
[2024-10-05 20:27] VITALS: BP 173/98; PULSE 72; RESP 20; TEMP 36.7; O2SAT 100
--- OUTSIDE RECORDS SUMMARY | 2024-10-05 20:30 | XMS_ITS | Encounter Summary ---
Author Organization [facility] Address [address] [place] [address] Care Team Providers Care Ehs Engineer Name Role Phone Hermes Ramirez MD Primary Care Provider Reason for Visit * Reason Onset Date Comments Refill Request 01/07/2021 Encounter Details Date Type Department Care Team (Late st Contact Info) Description 01/07/2021 Refill [facility] Transplant Program [address] [facility] [address] [place], [place] [id number] Refill Request Social History Tobacco Use Types Packs/Day Years Used Date Smoking Tobacco: Former Cigarettes 0.5 20 0 03/20/2000 - 03/20/2020 Smokeless Tobacco: Never Social Connections Answer Date Recorded Conversations with friends/family/neighbors per week Not on file 05/25/2020 Housing Stability Answer Date Recorded Mortgage Payment Concerns? Not on file 09/22 [address] of Places Lived in the Last Year Not on f ile 09/22/2020 Unstable Housing? Not on file 09/22/2020 Comments No Sex and Gender Information Value Date Recorded Sex Assigned at Not on file Legal Sex Female 1:03 PM RECONCILIATION SPECIALIST Gender Identity Not on file Sexual Orientation Not on file COVID-19 Exposure Response Date Recorded In the last month, have you been in contact with someone who was confirmed or suspected to have Coronavirus / COVID-19? No / Unsure 01/08/2021 12:45 PM CDT documented as of this encounter Plan of Treatment Not on file documented as of this encounter Visit Diagnoses Diagnosis Liver replaced by transplant (CMS-HCC) Liver replaced by transplant Kidney replaced by transplant Need for prophylactic immunotherapy documented in this encounter Additional Health Concerns Assessment Noted Time PHQ-2 Depression Total Score: 2 10/15/19 21 10:01 AM CDT documented as of this encounter Care Teams Ehs Engineer Relationship Specialty Start Date End Date Hermes Ramirez MD [address] [place] [address] PCP - General 05/28/20 documented as of this encounter
--- OUTSIDE RECORDS SUMMARY | 2024-10-05 20:30 | XMS_ITS | Encounter Summary ---
Author Organization [facility] Address [address] [place] [address] Care Team Providers Care Staking Engineer Name Role Phone Hermes Ramirez MD Primary Care Provider [phone] Reason for Visit * Reason Onset Date Comments Refill Request 02/15/2021 Encounter Details Date Type Department Care Team ([facility] st Contact Info) Description 02/15/2021 Refill [facility] Transplant Program [address] [id number] Allen Manzano PAVasquez [address] [facility] [address] [place] [address] Refill Request Social History Tobacco Use Types [...] on file Legal Sex Female 1:03 PM MATTRESS PACKER Gender Identity Not on file Sexual Orientation Not on file COVID-19 Exposure Response Date Recorded In the last month, have you been in contact with someone who was confirmed or suspected to have Coronavirus / COVID-19? Yes 02/17/2021 2:11 PM MATTRESS PACKER documented as of this encounter Plan of Treatment Not on file documented as of this encounter Visit Diagnoses Diagnosis Liver replaced by transplant (CMS-HCC) Liver replaced by transplant Kidney replaced by transplant Need for prophylactic immunotherapy documented in this encounter Additional Health Concerns Assessment Noted Time PHQ-2 Depression Total Score: 2 10/15/19 21 10:01 AM CDT documented as of this encounter Care Teams Staking Engineer Relationship Specialty Start Date End Date Hermes Ramirez MD [address] [place] [address] PCP - General 05/28/20 documented as of this encounter
--- OUTSIDE RECORDS SUMMARY | 2024-10-05 20:30 | XMS_ITS | Encounter Summary ---
Author Organization [facility] Address [address] [facility] [address] [place] [address] Care Team Providers Care Diesel Engine Pipe Fitter Name Role Phone Hermes Ramirez MD Primary Care Provider Reason for Visit * Reason Onset Date Comments Refill Request 04/01/2021 Encounter Details Date Type Department Care Team (Late st Contact Info) Description 04/01/2021 Refill DEPUTY Neurology [address] [facility] [address] [place] [address] Lyly Mccollum MD [address] [facility] [address] [place] [address] Refill Request Social History Tobacco Use Types Packs/Day Years Used Date Smoking Tobacco: Former Cigarettes 0.5 20 0 03/20/2000 - 03/20/2020 Smokeless Tobacco: Never Alcohol Use Standard Drinks/Week Comments Never 0 (1 standard drink = 0.6 oz pur e alcohol) Social Connections Answer Date Recorded Conversations with [...] on file Legal Sex Female 1:03 PM PROCESS IMPROVEMENT MANAGER Gender Identity Not on file Sexual Orientation Not on file COVID-19 Exposure Response Date Recorded In the last month, have you been in contact with someone who was confirmed or suspected to have Coronavirus / COVID-19? No / Unsure 03/02/2021 2:55 PM PROCESS IMPROVEMENT MANAGER documented as of this encounter Plan of Treatment Not on file documented as of this encounter Visit Diagnoses Not on filedocumented in this encounter Additional Health Concerns Assessment Noted Time PHQ-9 Depression Total Score: 9 03/02/20 3:09 PM PROCESS IMPROVEMENT MANAGER PHQ-2 Depression Total Score: 0 03/10/20 11:51 AM PROCESS IMPROVEMENT MANAGER documented as of this encounter Care Teams Diesel Engine Pipe Fitter Relationship Specialty Start Date End Date Hermes Ramirez MD [address] [place] [address] PCP - General 05/28/20 documented as of this encounter
--- OUTSIDE RECORDS SUMMARY | 2024-10-05 20:30 | XMS_ITS | Encounter Summary ---
Author Organization [facility] Healthcare Address [address] [place] [address] Care Team Providers Care Header Boss Name Role Phone Beatriz Lee MD Unavailable [phone] Lyly Fiore MECHANICAL INSULATOR Primary Care Provider Taylor Kitchen RN Unavailable Unav ailable Reason for Visit * Reason Onset Date Comments PMC Preprocedure 09/19/2024 Encounter Details Date Type Department Care Team (Late st Contact Info) Description 09/19/2024 Telephone [facility] [address] [facility] [address] [place], [place] [id number] Igor Graham MD [address] [place], [place] [id number] PMC Preprocedure Social History Tobacco Use Types Packs/Day Years Used Date Smoking Tobacco: Every Day Cigarettes Smokeless Tobacco: Never Comments:1 cigarette day Alcohol Use Standard Drinks/Week Comments Never 0 (1 standard drink = 0.6 oz pur e alcohol) rare [facility] Utilities Answer Date Recorded In the past 12 months has [employer], gas, oil, or water company threatened to shut off services in your home? No 09/03/2024 Social Connection and Isolation Panel [NHANES] A nswer Date Recorded In a typical week, how many times do you talk on the phone with family, friends, or neighbors? Three times a week 09/04/19 25 How often do you get togethe r with friends or relatives? Three times a week 09/03/2024 How often do you attend chur ch or scientologist services? Never 09/03/2024 Do you belong to any clubs o r organizations such as sikhism groups, unions, fraternal or athletic groups, or school groups? No 09/03/2024 How often do you attend meet ings of the clubs or organizations you belong to? Never 09/03/2024 Are you , , di vorced, , never , or living with a partner? Living with partner 09/03/2024 AUDIT-C Answer Date Recorded Q1: How often do you have a drink containing alcohol? Never 08/14/2024 Q2: How many drinks containi ng alcohol do you have on a typical day when you are drinking? Patient does not drink Q3: How often do you have si x or more drinks on one occasion? Never 08/14/2024 Overall Financial Resource Strain (CARDIA) Answe r Date Recorded How hard is it for you to pa y for the very basics like food, housing, medical care, and heating? Not hard at all 09/03/2024 PHQ-2 Answer Date Recorded PHQ-2 Total Score 0 09/03/2024 Hunger Vital Sign Answer Date Recorded Within the past 12 months, y ou worried that your food would run out before you got the money to buy more. Never true 09/04/19 25 Within the past 12 months, t he food you bought just didn't last and you didn't have money to get more. Never true 09/03/2024 PRAPARE - Transportation Answer Date Re corded In the past 12 months, has l ack of transportation kept you from medical appointments or from getting medications? No 08/18 In the past 12 months, has l ack of transportation kept you from meetings, work, or from getting things needed for daily living? No 09/03/2024 PHQ-9 Answer Date Recorded PHQ-9 Total Score 11 05/29/2024 Housing Stability Vital Sign Answer Angel e Recorded In the last 12 months, was t here a time when you were not able to pay the mortgage or rent on time? No 09/03/2024 In the past 12 months, how m any times have you moved where you were living? 0 09/03/2024 At any time in the past 12 m [facility], were you homeless or living in a penitentiary (including now)? No 09/03/2024 Personal Safety Answer Date Recorded Have you ever been in or are you currently in a harmful physical or emotional relationship or is someone making you feel afraid or unsafe? Denies 09/02/2024 Comments No Sex and Gender Information Value Date Recorded Sex Assigned at Not on file Legal Sex Female 10:10 PM ORE DIGGER Gender Identity Not on file Sexual Orientation Not on file documented as of this encounter Plan of Treatment Not on file documented as of this encounter Goals Goal Patient Goal Type Associated Problems Recent Progress Patient-Stated? Author CCM Chronic Pain Care Plan Chronic Care Management On track(2024 9:02 AM CDT) No Matias Abraham, ANSON Note: Problem: Chronic Pain Goals: 1. Minimize further functional decline 2. Maximize quality of life 3. Control pain Strategies: - Activity/exercise program recommendation - Conservative stepwise pain medicine strategy with multi-disciplinary approach - Recommend healthy lifestyle strategies and compensatory methods as needed documented as of this encounter Visit Diagnoses Not on filedocumented in this encounter Care Teams Header Boss Relationship Specialty Start Date End Date Lyly Fiore NP [address] [place] [address] PCP - General Nurse Practitioner 05/29/24 Beatriz Lee MD [address] [place] [address] Referring Physician Gastroenterology 07/25/19 Taylor Kitchen, electric distribution checkerAnimal Groomer 05/29/24 documented as of this encounter
--- OUTSIDE RECORDS SUMMARY | 2024-10-05 20:30 | XMS_ITS | Encounter Summary ---
Author Organization [facility] Healthcare Address [address] [place] [address] Care Team Providers Care Supervisor Scouring Pads Name Role Phone Beatriz Lee MD Unavailable [phone] Lyly Fiore TECHNOLOGY STRATEGIST Primary Care Provider Taylor Kitchen RN Unavailable Unav ailable Encounter Details Date Type Department Care Team (Late st Contact Info) Description 08/15/2024 Results Follow-Up [facility] Transplant Liver [address] [facility] [phone] [place] [address] Taylor Kitchen RN Surgical pathology Social History Tobacco Use Types Packs/Day Years [...] more drinks on one occasion? Never 08/14/2024 PHQ-2 Answer Date Recorded PHQ-2 Total Score (If total score is 3 or more points, staff should administer the PHQ-9) 5 05/29/2024 Hunger Vital Sign Answer Date Recorded Within the past 12 months, y ou worried that your food would run out before you got the money to buy more. Never true 08/15/19 25 Within the past 12 months, t he food you bought just didn't last and you didn't have money to get more. Never true 08/14/2024 PHQ-9 Answer Date Recorded PHQ-9 Total Score 11 05/29/2024 Personal Safety Answer Date Recorded Have you ever been in or are you currently in a harmful physical or emotional relationship or is someone making you feel afraid or unsafe? Denies 05/29/2024 Comments No Sex and Gender Information Value Date Recorded Sex Assigned at Not on file Legal Sex Female 10:10 PM BRACELET MAKER NOVELTY Gender Identity Not on file Sexual Orientation Not on file documented as of this encounter Plan of Treatment Not on file documented as of this encounter Goals Goal Patient Goal Type Associated Problems Recent Progress Patient-Stated? Author CCM Chronic Pain Care Plan Chronic Care Management On track(2024 9:02 AM CDT) No Matias Abraham, RN Note: Problem: Chronic Pain Goals: 1. Minimize [...] Infection Onset Date Last Indicated Resolved Time COVID: Suspected 09/01/2024 09/01/2024 09/01/2024 3:49 AM CDT C. difficile suspected 09/01/2024 09/01/202409/02 12:36 PM CDT Norovirus suspected 09/01/2024 09/01/2024 09/03/19 12:36 PM CDT Rhino/Enterovirus 09/01/2024 09/01/2024 09/08/2024 7:27 PM CDT documented as of this encounter Care Teams Supervisor Scouring Pads Relationship Specialty Start Date End Date Lyly Fiore NP [address] [place] [address] PCP - General Nurse Practitioner 05/29/24 Beatriz Lee MD [address] [place] [address] Referring Physician Gastroenterology 07/25/19 Taylor Kitchen, reliability specialistRegistered Client Associate 05/29/24 documented as of this encounter
--- OUTSIDE RECORDS SUMMARY | 2024-10-05 20:30 | XMS_ITS | Encounter Summary ---
Author Organization [facility] Address [address] [facility] [place] [address] Care Team Providers Care Rn Gynecology Name Role Phone Hermes Ramirez MD Primary Care Provider Reason for Visit * Reason Onset Date Comments Refill Request 01/05/2021 Encounter Details Date Type Department Care Team (Late st Contact Info) Description 01/05/2021 Refill [facility] Neurology [address] [facility] [address] [place] [address] Vivian Ayala MD [address] [facility] [address] [place] [address] Refill Request Social History Tobacco [...] on file Legal Sex Female 1:03 PM PERSONAL FINANCE INSTRUCTOR Gender Identity Not on file Sexual [...] documented as of this encounter Care Teams Rn Gynecology Relationship Specialty Start Date End Date Hermes Ramirez MD [address] [place] [address] PCP - General 05/28/20 documented as of this encounter
--- OUTSIDE RECORDS SUMMARY | 2024-10-05 20:31 | XMS_ITS | Encounter Summary ---
Author Organization [facility] Address [address] [facility] [place] [address] Care Team Providers Care Crumb Packer Name Role Phone Hermes Ramirez MD Primary Care Provider [phone] Reason for Visit * Reason Onset Date Comments Refill Request 04/08/2023 Encounter Details Date Type Department Care Team (Late st Contact Info) Description 04/08/2023 Refill [facility] Transplant Program [address] [address] Marion Pedroza MD [address] [place] [address] Refill Request Social History Tobacco Use Types Packs/Day Years Used Date Smoking Tobacco: Former Cigarettes 0.5 20 0 03/20/2000 - 03/20/2020 Smokeless Tobacco: Never Alcohol Use Standard Drinks/Week Comments Never 0 (1 standard drink = 0.6 oz pur e alcohol) Social Connections Answer Date Recorded Conversations with friends/family/neighbors per week Not on file 05/25/2020 Financial Resource Strain Answer Date R ecorded How hard is it for you to pa y for the very basics like food, housing, medical care, and heating? Not hard at all 02/18/2022 Food Insecurity Answer Date Recorded Currently or in the past 3 m [facility], have you worried your food would run out before you had money to buy more? No 2021 In the past 12 months, have you run out of food or been unable to get more? No 02/18/2022 Transportation Needs Answer Date Record ed Currently or in the past 3 m onths, has lack of transportation kept you from medical appointments, getting food or medicine, or providing care to a family member? Patient Refused 02/18/2022 Has the lack of transportati on kept you from meetings, work, or from getting things needed for daily living? Patient Refused 02/18/2022 Medical Transportation Needs? Patient refused Daily Living Transportation Needs? [Peds Only] P atient refused 02/18/2022 Housing Stability Answer Date Recorded Mortgage Payment Concerns? Not on file 02/21 Number of Places Lived in the Last Year Not on f ile 02/21/2023 Unstable Housing? Not on file 02/21/2023 Utilities Answer Date Recorded Currently or in the past 12 months, have you or household members gone without utilities (heat, water, electricity)? No 02/18/2022 Comments No Sex and Gender Information Value Date Recorded Sex Assigned at Not on file Legal Sex Female 1:03 PM GLASS SILVERER Gender Identity Not on file Sexual Orientation Not on file documented as of this encounter Plan of Treatment Not on file documented as of this encounter Visit Diagnoses Diagnosis Mood disorder Unspecified episodic mood disorder documented in this encounter Additional Health Concerns Assessment Noted Time PHQ-9 Depression Total Score: 6 12/08/19 22 3:08 PM CDT PHQ-2 Depression Total Score: 0 06/23/19 23 10:20 AM CDT documented as of this encounter Care Teams Crumb Packer Relationship Specialty Start Date End Date Hermes Ramirez MD [address] [place] [address] PCP - General 05/28/20 documented as of this encounter
--- OUTSIDE RECORDS SUMMARY | 2024-10-05 20:31 | XMS_ITS | Encounter Summary ---
Author Organization [facility] Address [address] [place] [address] Care Team Providers Care Cloth Napping Supervisor Name Role Phone Ashley ZUNIGA MD, Hermes Primary Care Provid er Lyly Fiore NP Primary Care Provider Encounter Details Date Type Department Care Team (Late st Contact Info) Description 08/25/2018 Abstract [facility] CONVERSION [address] [address] , Generic Conversion, Social History Tobacco Use Types Packs/Day Years Used Date Smoking Tobacco: Every Day Cigarettes 0.5 15 Smokeless Tobacco: Never Alcohol Use Standard Drinks/Week Comments No 0 (1 standard drink = 0.6 oz pur e alcohol) Comments No Sex and Gender Information Value Date Recorded Sex Assigned at Female 04/05/2024 4:26 PM ADVERTISING STATISTICAL CLERK Legal Sex Female 9:15 PM ADVERTISING STATISTICAL CLERK Gender Identity Not on file Sexual Orientation Not on file documented as of this encounter Plan of Treatment Not on file documented as of this encounter Visit Diagnoses Not on filedocumented in this encounter Additional Health Concerns Infection Onset Date Last Indicated Resolved Time COVID-19 Rule Out 03/30/2020 03/30/2020 03/30/2020 9:29 PM ADVERTISING STATISTICAL CLERK COVID-19 Rule Out 03/30/2020 03/30/2020 03/31/2020 12:28 PM ADVERTISING STATISTICAL CLERK COVID-19 Rule Out 02/16/2024 02/16/2024 02/16/2024 9:16 PM ADVERTISING STATISTICAL CLERK Rhinovirus 02/16/2024 02/16/2024 02/26/2024 12:3 2 AM ADVERTISING STATISTICAL CLERK COVID-19 Rule Out 08/26/2024 08/26/2024 08/26/2024 11:07 PM CDT Respiratory Rule Out 08/26/2024 08/26/2024 025 11:06 PM CDT documented as of this encounter Care Teams Cloth Napping Supervisor Relationship Specialty Start Date End Date Hermes Ramirez III, MD [address] [address] PCP - General FAMILY PRACTICE 06/20/17 04/13/24 Lyly Fiore NP [address] [place] [address] PCP - General NURSE PRACTITIONER 04/14/24 documented as of this encounter
--- OUTSIDE RECORDS SUMMARY | 2024-10-05 20:31 | XMS_ITS | Referral Summary ---
Author Organization [facility] Address [address] [place] [address] Care Team Providers Care Traffic Analysis Technician Name Role Phone Beatriz Lee MD Unavailable +- [phone] Llyy Fiore FISH TENDER Primary Care Provider Taylor Kitchen RN Unavailable Unav ailable Encounters Date Type Department Care Team Description 09/26/2024 Telephone [facility] [address] [facility] ([place], [place]) Advanced Medicine [address] [place] [address] Igor Graham MD Post-Op Call 09/25/2024 8:48 AM CDT - 09/25/2024 11:59 PM CDT Hospital Encounter [facility] [address] [facility] ([place], [place]) Advanced Medicine [address] [place] [address] Igor Graham MD Lumbar disc disease with radiculopathy (Primary Dx); Lumbar spondylosis Discharge Disposition: Discharge to home or self care 09/19/2024 Telephone [facility] [address] [facility] ([place], [place]) Advanced Medicine [address] [place] [address] Igor Graham MD [facility] Preprocedure 09/09/2024 SHOP/CHAP Initial Eligibility Review [facility] [address] [place] [address] Shireen Griffin RN 08/31/2024 11:48 PM CDT - 09/06/2024 4:45 PM CDT Hospital Encounter [facility] [address] [place] [address] Elisha Avila MD Freilich, MD Vicente Aguirre, Britta Alarcon MD Abdominal pain (Primary Dx); Liver transplant failure and rejection (HCC); Rhinovirus infection Discharge Disposition: Discharge to home or self care 08/27/2024 Telephone [facility] [address] [facility] ([place], [place]) Advanced [facility] [address] [place] [address] Igor Graham MD Pre Procedure 08/15/2024 Results Follow-Up [facility] Transplant Liver [address] [place] [address] [address] [id number] [place] [address] Taylor Kitchen RN Surgical pathology 08/15/2024 10:30 AM CDT Clinical Support [place] [id number] [facility] 1st [place] [address] Brielle Carrillo, PhD 08/14/2024 12:21 PM CDT - 08/14/2024 11:59 PM CDT Hospital Encounter [facility] Advanced Medicine [address] [facility] [address] [place] [address] Igor Graham MD Lumbar spondylosis (Primary Dx); Lumbar disc disease with radiculopathy Discharge Disposition: Discharge to home or self care 08/02/2024 Orders Only [facility] [address] [place] [address] Beatriz Lee MD History of liver transplant (HCC); History of kidney transplant 08/01/2024 Telephone [facility] Transplant Liver [address] [facility] [address] [phone] [place] [address] Misty Vail RN 07/29/2024 Telephone [facility] Transplant Liver [address] [facility] [address] Mail[address] [phone] [place] [address] Lorena Turner 07/26/2024 2:55 PM CDT - 07/26/2024 2:56 PM CDT Emergency [facility] Emergency Department 1 [place] [address] Discharge Disposition: Left without being seen 07/24/2024 Telephone [facility] Transplant Liver [address] [place] [address] [address] [address] [place] [address] Lorena Turner 07/24/2024 9:45 AM CDT - 07/24/2024 11:59 PM CDT Hospital Encounter [facility] ([facility]) [address] [place] [address] Jessee Morton MD Lumbar spine pain; Adolescent idiopathic scoliosis of thoracic region Discharge Disposition: Discharge to home or self care 07/24/2024 10:00 AM CDT Office Visit [facility] Orthopaedic Surgery [address] [facility] for [facility] Medicine 6th [place] [address] [place] [address] Jessee Morton MD Lumbar spine pain (Primary Dx); Adolescent idiopathic scoliosis of thoracic region; Chronic bilateral low back pain without sciatica 07/22/2024 Telephone [facility] Transplant Liver [address] [place] [address] [address] [phone] [place] [address] Dafne Dukes RN 07/19/2024 Telephone [facility] Transplant Liver [address] [place] [address] [address] Mail[address] [phone] [place] [address] Karmen Garsia RN After Hours; Abdominal Pain 07/17/2024 Telephone [facility] Transplant Liver [address] [place] [address] [address] Mail[address] [phone] [place] [address] Lorena Turner 07/12/2024 5:48 PM CDT - 07/12/2024 11:59 PM CDT Hospital Encounter [facility] ([facility]) [address] [place] [address], [place] [address] Discharge Disposition: Discharge to home or self care 07/12/2024 5:46 PM CDT - 07/12/2024 11:59 PM CDT Hospital Encounter [facility] ([facility]) [address] [place] [address] Discharge Disposition: Discharge to home or self care 07/12/2024 5:44 PM CDT - 07/12/2024 11:59 PM CDT Hospital Encounter [facility] ([facility]) [address] [place] [address] Discharge Disposition: Discharge to home or self care 07/12/2024 5:43 PM CDT - 07/12/2024 11:59 PM CDT Hospital Encounter [facility] ([facility]) [address] [place] [address] Discharge Disposition: Discharge to home or self care 07/12/2024 Telephone [facility] Nephrology [address] [place] [address] for Advanced Medicine 5th [place] [address] [place] [address] Wilson Swift MD 07/11/2024 Telephone [facility] Transplant Liver [address] [facility] [address] Mail[address] [facility] [place] [address] Dafne Dukes RN 07/11/2024 Telephone [facility] Transplant Liver [address] [facility] [address] Mail[address] -298 [place] [address] Yulisa Welch 07/10/2024 Telephone [facility] Transplant Liver [address] [facility] [address] Mail[address] [phone] [place] [address] Liyah Kamara 07/09/2024 Telephone [facility] Transplant Liver [address] [facility] [address] Mailstop [phone] [place] [address] Dafne Dukes RN 07/09/2024 Telephone [facility] Transplant Liver [address] [facility] [address] Mailstop [phone] [place] [address] Yulisa Welch 07/09/2024 8:48 AM CDT - 07/09/2024 11:59 PM CDT Hospital Encounter [facility] ([facility]) [address] [place] [address] Discharge Disposition: Discharge to home or self care 07/09/2024 8:46 AM CDT - 07/09/2024 11:59 PM CDT Hospital Encounter [facility]) [address] [place] [address] Discharge Disposition: Discharge to home or self care 07/09/2024 8:44 AM CDT - 07/09/2024 11:59 PM CDT Hospital Encounter [facility] [address] [place] [address] Discharge Disposition: Discharge to home or self care from Last 3 Months Allergies Active Allergy [...] (See comments) High 01/17/2016 KIDNEY Immunosuppressants Medications pantoprazole DR (PROTONIX) 40 mg EC tabletIndicati ons:Treatment of Non-Bleeding Gastric Disorder Take 1 tablet (40 mg total) by mouth 2 (two) times a day 60 tablet 06/13/19 25 Active venlafaxine (EFFEXOR) 37.5 mg tablet Take 0.5 tablets (18.75 mg total) by mouth 2 (two) times a day before breakfast and dinner 30 tablet 06/13/19 25 Active melatonin tablet Take 1 tablet (3 mg total) by mouth nightly Active multivitamin with minerals (Hair,Skin and Nails) tablet Take 1 tablet by mouth daily Active DULoxetine DR (CYMBALTA) 60 mg capsule Take 1 capsule (60 mg total) by mouth daily 08/01/19 25 Active LORazepam (ATIVAN) 0.5 mg tablet Take 1 tablet (0.5 mg total) by mouth as needed 08/01/19 25 Active ARIPiprazole (ABILIFY) 2 mg tablet Take 1 tablet (2 mg total) by mouth daily Active metoprolol XL (TOPROL-XL) 100 mg 24 hr tablet Take 1 tablet (100 mg total) by mouth 2 (two) times a day Active vit-iron fum-folic ac ( Vitamin) 27 mg iron- 800 mcg tablet Take 1 tablet by mouth daily Active tacrolimus XR (ENVARSUS XR) 1 mg tablet extended release 24 hrIndications: immunosuppress ion Take 2 tablets (2 mg total) by mouth daily 60 tablet 09/08/19 25 025 Active azaTHIOprine (IMURAN) 100 mg tablet Take 1 tablet (100 mg total) by mouth daily 30 tablet 09/07/19 25 025 Active predniSONE (DELTASONE) 5 mg tablet Take 1 tablet (5 mg) by mouth daily 30 tablet 09/07/19 25 025 Active senna-docusate (PERICOLACE) 8.6-50 mg Take 2 tablets by mouth daily as needed 11/29/19 24 025 Discontinued(St op Taking at Discharge) tacrolimus XR (ENVARSUS XR) 1 mg tablet extended release 24 hrIndications: Prevention of Kidney Transplant Rejection Take 4 tablets (4 mg total) by mouth daily 360 tablet 3 06/27/19 25 025 Discontinued(St op Taking at Discharge) predniSONE (DELTASONE) 5 mg tablet Take 1 tablet (5 mg) by mouth daily 30 tablet 11 06/27/19 25 025 Discontinued(St op Taking at Discharge) azaTHIOprine (IMURAN) 100 mg tablet Take 1 tablet (100 mg total) by mouth daily 025 Discontinued(St op Taking at Discharge) rifAXIMin (XIFAXAN) 550 mg tablet Take 1 tablet (550 mg total) by mouth 2 (two) times a day 60 tablet 09/07/19 25 025 Discontinued(Er ror) tacrolimus XR (ENVARSUS XR) 1 mg tablet extended release 24 hrIndications: immunosuppress ion Take 2 tablets (2 mg total) by mouth daily 60 tablet 09/08/19 25 025 Discontinued predniSONE (DELTASONE) 5 mg tablet Take 1 tablet (5 mg) by mouth daily 30 tablet 09/07/19 25 025 Discontinued azaTHIOprine (IMURAN) 100 mg tablet Take 1 tablet (100 mg total) by mouth daily 30 tablet 09/07/19 25 025 Discontinued Active Problems Patient Care Coordination No te Formatting of this note migh t be different from the original. Lab: [facility]. . . 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 She has CKD with baseline creatinine ~2. Previously followed at [facility], but has she has been wanting to transfer care to [place] but has not been able to schedule an appointment. She follows with [facility]. Per Liver Transplant office visit note 06/26/2024, should be on tacro 4mg daily, azathioprine 100 mg daily, prednisone 2.5 mg. She takes tacro and azathiprine; however, patient self-discontinued her prednisone given concerns for weight gain and worsening mental health. She was having right lower quadrant pain that radiated down her right side, and she was concerned about transplant rejection. Transplant Kidney US negative for renal artery stenosis and normal transplant kidney morphology w/o hydronephrosis. -Transplant Hepatology consulted: ALP stably elevated AST/ALT normal. No concerns for rejection at this time. -Transplant Nephrology consulted. -CMV negative, BK pending, and DSA HLA labs -Strict I/Os -cont Tacrolimus 2mg, tacro level 6.4 -Hold azathioprine 100 mg. Restart on 09/07 -Continue prednisone 5 mg daily -Blood cultures 1/2 came back positive for MRSE after 21 hours. Likely contaminant given clinically stable. F/u blood cultures. -Outpatient transplant nephrology referral on discharge. 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 She has CKD with baseline creatinine ~2. Previously followed at [facility], but has she has been wanting to transfer care to [place] but has not been able to schedule an appointment. She follows with [facility]. Per Liver Transplant office visit note 06/26/2024, should be on tacro 4mg daily, azathioprine 100 mg daily, prednisone 2.5 mg. She takes tacro and azathiprine; however, patient self-discontinued her prednisone given concerns for weight gain and worsening mental health. She was having right lower quadrant pain that radiated down her right side, and she was concerned about transplant rejection. Transplant Kidney US negative for renal artery stenosis and normal transplant kidney morphology w/o hydronephrosis. -Transplant Hepatology consulted: ALP stably elevated AST/ALT normal. No concerns for rejection at this time. -Transplant Nephrology consulted. -CMV negative, BK pending, and DSA HLA labs -Strict I/Os -Restart Tacrolimus 2mg, tacro level 6.2 Recheck AM tacro level. -Hold azathioprine 100 mg. Restart on 09/07 -Continue prednisone 5 mg daily -Blood cultures 1/2 came back positive for MRSE after 21 hours. Likely contaminant given clinically stable. F/u blood cultures. -Outpatient transplant nephrology referral on discharge. 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 She has CKD with baseline creatinine ~2. Previously followed at [facility], but has she has been wanting to transfer care to [place] but has not been able to schedule an appointment. She follows with [facility]. Per Liver Transplant office visit note 06/26/2024, should be on tacro 4mg daily, azathioprine 100 mg daily, prednisone 2.5 mg. She takes tacro and azathiprine; however, patient self-discontinued her prednisone given concerns for weight gain and worsening mental health. She was having right lower quadrant pain that radiated down her right side, and she was concerned about transplant rejection. Transplant Kidney US negative for renal artery stenosis and normal transplant kidney morphology w/o hydronephrosis. -Transplant Hepatology consulted: ALP stably elevated AST/ALT normal. No concerns for rejection at this time. -Transplant Nephrology consulted. -CMV negative, BK pending, and DSA HLA labs -Strict I/Os -Hold tacro 4 mg morning dose given elevated tacro level of 10.9. Recheck AM tacro level. -Hold azathioprine 100 mg -Continue prednisone 5 mg daily -Will start continuous IVF -Blood cultures 1/2 came back positive for MRSE after 21 hours. Likely contaminant given clinically stable. F/u blood cultures. -Outpatient transplant nephrology referral on discharge. 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 She has CKD with baseline creatinine ~2. Previously followed at [facility], but has she has been wanting to transfer care to [place] but has not been able to schedule an appointment. She follows with [facility]. Per Liver Transplant office visit note 06/26/2024, should be on tacro 4mg daily, azathioprine 100 mg daily, prednisone 2.5 mg. She takes tacro and azathiprine; however, patient self-discontinued her prednisone given concerns for weight gain and worsening mental health. She was having right lower quadrant pain that radiated down her right side, and she was concerned about transplant rejection. Transplant Kidney US negative for renal artery stenosis and normal transplant kidney morphology w/o hydronephrosis. -Transplant Hepatology consulted: ALP stably elevated AST/ALT normal. No concerns for rejection at this time. -Transplant Nephrology consulted. -Will obtain CMV, BK, and DSA HLA labs -Strict I/Os -Hold tacro 4 mg morning dose given elevated tacro level of 17.8. Recheck AM tacro level. -Hold azathioprine 100 mg -Continue prednisone 5 mg daily -Will start continuous IVF -Blood cultures 1/2 came back positive for MRSE after 21 hours. Likely contaminant given clinically stable. Will repeat blood cultures. -Outpatient transplant nephrology referral on discharge. 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 She has CKD with baseline creatinine ~2. Previously followed at [facility], but has she has been wanting to transfer care to [place] but has not been able to schedule an appointment. She follows with [facility]. Per Liver Transplant office visit note 06/26/2024, should be on tacro 4mg daily, azathioprine 100 mg daily, prednisone 2.5 mg. She takes tacro and azathiprine; however, patient self-discontinued her prednisone given concerns for weight gain and worsening mental health. She was having right lower quadrant pain that radiated down her right side, and she was concerned about transplant rejection. Transplant Kidney US negative for renal artery stenosis and normal transplant kidney morphology w/o hydronephrosis. -Transplant Hepatology consulted: ALP stably elevated AST/ALT normal. No concerns for rejection at this time. -Transplant Nephrology consulted. -Will obtain CMV, BK, and DSA HLA labs -Strict I/Os -Hold tacro 4 mg morning dose 09/03 given elevated tacro level of 17. Recheck tacro level 09/03. -Hold azathioprine 100 mg -Increase prednisone to 5 mg daily (previously 2.5) -Given worsening CHRISTY on CKD, gave 1 L of IVF -Blood cultures 1/2 came back positive for MRSE after 21 hours. Likely contaminant given clinically stable. Will repeat blood cultures. -Outpatient transplant nephrology referral on discharge. 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 She has CKD with baseline creatinine ~2. Previously followed at [facility], but has she has been wanting to transfer care to [place] but has not been able to schedule an appointment. She follows with [facility]. Per Liver Transplant office visit note 06/26/2024, should be on tacro 4mg daily, azathioprine 100 mg daily, prednisone 2.5 mg. She takes tacro and azathiprine; however, patient self-discontinued her prednisone given concerns for weight gain and worsening mental health. She was having right lower quadrant pain that radiated down her right side, and she was concerned about transplant rejection. Transplant Kidney US negative for renal artery stenosis and normal transplant kidney morphology w/o hydronephrosis. -Transplant Hepatology consulted: ALP stably elevated AST/ALT normal. No concerns for rejection at this time. -Transplant Nephrology consulted. -CMV negative, BK pending, and DSA HLA labs -Strict I/Os -cont Tacrolimus 2mg, tacro level 6.4 -Hold azathioprine 100 mg. Restart on 09/07 -Continue prednisone 5 mg daily -Blood cultures 1/2 came back positive for MRSE after 21 hours. Likely contaminant given clinically stable. F/u blood cultures. -Outpatient transplant nephrology referral on discharge. 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 She has CKD with baseline creatinine ~2. Previously followed at [facility], but has she has been wanting to transfer care to [place] but has not been able to schedule an appointment. She follows with [facility]. Per Liver Transplant office visit note 06/26/2024, should be on tacro 4mg daily, azathioprine 100 mg daily, prednisone 2.5 mg. She takes tacro and azathiprine; however, patient self-discontinued her prednisone given concerns for weight gain and worsening mental health. She was having right lower quadrant pain that radiated down her right side, and she was concerned about transplant rejection. Transplant Kidney US negative for renal artery stenosis and normal transplant kidney morphology w/o hydronephrosis. -Transplant Hepatology consulted: ALP stably elevated AST/ALT normal. No concerns for rejection at this time. -Transplant Nephrology consulted. -CMV negative, BK pending, and DSA HLA labs -Strict I/Os -Restart Tacrolimus 2mg, tacro level 6.2 Recheck AM tacro level. -Hold azathioprine 100 mg. Restart on 09/07 -Continue prednisone 5 mg daily -Blood cultures 1/2 came back positive for MRSE after 21 hours. Likely contaminant given clinically stable. F/u blood cultures. -Outpatient transplant nephrology referral on discharge. 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 She has CKD with baseline creatinine ~2. Previously followed at [facility], but has she has been wanting to transfer care to [place] but has not been able to schedule an appointment. She follows with [facility]. Per Liver Transplant office visit note 06/26/2024, should be on tacro 4mg daily, azathioprine 100 mg daily, prednisone 2.5 mg. She takes tacro and azathiprine; however, patient self-discontinued her prednisone given concerns for weight gain and worsening mental health. She was having right lower quadrant pain that radiated down her right side, and she was concerned about transplant rejection. Transplant Kidney US negative for renal artery stenosis and normal transplant kidney morphology w/o hydronephrosis. -Transplant Hepatology consulted: ALP stably elevated AST/ALT normal. No concerns for rejection at this time. -Transplant Nephrology consulted. -CMV negative, BK pending, and DSA HLA labs -Strict I/Os -Hold tacro 4 mg morning dose given elevated tacro level of 10.9. Recheck AM tacro level. -Hold azathioprine 100 mg -Continue prednisone 5 mg daily -Will start continuous IVF -Blood cultures 1/2 came back positive for MRSE after 21 hours. Likely contaminant given clinically stable. F/u blood cultures. -Outpatient transplant nephrology referral on discharge. 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 She has CKD with baseline creatinine ~2. Previously followed at [facility], but has she has been wanting to transfer care to [place] but has not been able to schedule an appointment. She follows with [facility]. Per Liver Transplant office visit note 06/26/2024, should be on tacro 4mg daily, azathioprine 100 mg daily, prednisone 2.5 mg. She takes tacro and azathiprine; however, patient self-discontinued her prednisone given concerns for weight gain and worsening mental health. She was having right lower quadrant pain that radiated down her right side, and she was concerned about transplant rejection. Transplant Kidney US negative for renal artery stenosis and normal transplant kidney morphology w/o hydronephrosis. -Transplant Hepatology consulted: ALP stably elevated AST/ALT normal. No concerns for rejection at this time. -Transplant Nephrology consulted. -Will obtain CMV, BK, and DSA HLA labs -Strict I/Os -Hold tacro 4 mg morning dose given elevated tacro level of 17.8. Recheck AM tacro level. -Hold azathioprine 100 mg -Continue prednisone 5 mg daily -Will start continuous IVF -Blood cultures 1/2 came back positive for MRSE after 21 hours. Likely contaminant given clinically stable. Will repeat blood cultures. -Outpatient transplant nephrology referral on discharge. 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 She has CKD with baseline creatinine ~2. Previously followed at [facility], but has she has been wanting to transfer care to [place] but has not been able to schedule an appointment. She follows with [facility]. Per Liver Transplant office visit note 06/26/2024, should be on tacro 4mg daily, azathioprine 100 mg daily, prednisone 2.5 mg. She takes tacro and azathiprine; however, patient self-discontinued her prednisone given concerns for weight gain and worsening mental health. She was having right lower quadrant pain that radiated down her right side, and she was concerned about transplant rejection. Transplant Kidney US negative for renal artery stenosis and normal transplant kidney morphology w/o hydronephrosis. -Transplant Hepatology consulted: ALP stably elevated AST/ALT normal. No concerns for rejection at this time. -Transplant Nephrology consulted. -Will obtain CMV, BK, and DSA HLA labs -Strict I/Os -Hold tacro 4 mg morning dose 09/03 given elevated tacro level of 17. Recheck tacro level 09/03. -Hold azathioprine 100 mg -Increase prednisone to 5 mg daily (previously 2.5) -Given worsening CHRISTY on CKD, gave 1 L of IVF -Blood cultures /2 came back positive for MRSE after 21 hours. Likely contaminant given clinically stable. Will repeat blood cultures. -Outpatient transplant nephrology referral on discharge. 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 She has CKD with baseline creatinine ~2. Previously followed at [facility], but has she has been wanting to transfer care to [place] but has not been able to schedule an appointment. She follows with [facility]. Per Liver Transplant office visit note 06/26/2024, should be on tacro 4mg daily, azathioprine 100 mg daily, prednisone 2.5 mg. She takes tacro and azathiprine; however, patient self-discontinued her prednisone given concerns for weight gain and worsening mental health. She was having right lower quadrant pain that radiated down her right side, and she was concerned about transplant rejection. Transplant Kidney US negative for renal artery stenosis and normal transplant kidney morphology w/o hydronephrosis. -Consult Transplant Hepatology and Nephrology given immunosuppression with active infection and concerns for non-adherence with immunosuppression medications. -Continue tacrolimus 4 mg daily. Will check tacro trough 6/16 AM. -Continue azathioprine 100 mg, given patient is clinically doing well despite infection with Rhinovirus. -Restart prednisone 2.5 mg -Outpatient transplant nephrology referral on discharge. Chronic heart failure with preserved ejection fr action 09/01/2024 Assessment & Plan (09/06/2024 2:16 PM CDT): TTE from 05/2024 with LVEF 70%, mod concentric LVH. Mod dilated LA. -Continue home metoprolol tartrate 100 mg BID. Assessment & Plan (09/05/2024 4:06 PM CDT): TTE from 05/2024 with LVEF 70%, mod concentric LVH. Mod dilated LA. -Continue home metoprolol tartrate 100 mg BID. Assessment & Plan (09/04/2024 11:27 AM CDT): TTE from 05/2024 with LVEF 70%, mod concentric LVH. Mod dilated LA. -Continue home metoprolol tartrate 100 mg BID. Assessment & Plan (09/03/2024 9:52 AM CDT): TTE from 05/2024 with LVEF 70%, mod concentric LVH. Mod dilated LA. -Continue home metoprolol tartrate 100 mg BID. Assessment & Plan (09/02/2024 2:53 PM CDT): TTE from 05/2024 with LVEF 70%, mod concentric LVH. Mod dilated LA. -Continue home metoprolol tartrate 100 mg BID. Assessment & Plan (09/01/2024 5:45 PM CDT): TTE from 05/2024 with LVEF 70%, mod concentric LVH. Mod dilated LA. Continue home metoprolol tartrate 100 mg BID. Acute otitis media 09/01/2024 Assessment & Plan (09/06/2024 2:16 PM CDT): Patient presents with 1 week of congestion, body aches, and subjective fevers. In ED, RVP positive for rhinovirus. She was recently seen and diagnosed with with an ear infection and was started on Augmentin. She is on day 5 out of a 10 day course. Diarrhea started 2 days ago with 3-4 episodes of watery diarrhea. Breathing comfortably on RA, afebrile. Body aches exacerbating patients' chronic lower back pain. No episodes of diarrhea in the ED. Likely non-infectious given start of diarrhea coincides with recent antibiotic use. -Continue previously prescribed Augmentin to finish 10 day course (EOT 09/06). -Patient no longer having diarrhea, will cancel c diff and norovirus. Assessment & Plan (09/05/2024 4:06 PM CDT): Patient presents with 1 week of congestion, body aches, and subjective fevers. In ED, RVP positive for rhinovirus. She was recently seen and diagnosed with with an ear infection and was started on Augmentin. She is on day 5 out of a 10 day course. Diarrhea started 2 days ago with 3-4 episodes of watery diarrhea. Breathing comfortably on RA, afebrile. Body aches exacerbating patients' chronic lower back pain. No episodes of diarrhea in the ED. Likely non-infectious given start of diarrhea coincides with recent antibiotic use. -Continue previously prescribed Augmentin to finish 10 day course (EOT 09/06). -Patient no longer having diarrhea, will cancel c diff and norovirus. Assessment & Plan (09/04/2024 11:27 AM CDT): Patient presents with 1 week of congestion, body aches, and subjective fevers. In ED, RVP positive for rhinovirus. She was recently seen and diagnosed with with an ear infection and was started on Augmentin. She is on day 5 out of a 10 day course. Diarrhea started 2 days ago with 3-4 episodes of watery diarrhea. Breathing comfortably on RA, afebrile. Body aches exacerbating patients' chronic lower back pain. No episodes of diarrhea in the ED. Likely non-infectious given start of diarrhea coincides with recent antibiotic use. -Continue previously prescribed Augmentin to finish 10 day course (EOT 09/06). -Patient no longer having diarrhea, will cancel c diff and norovirus. Assessment & Plan (09/03/2024 9:52 AM CDT): Patient presents with 1 week of congestion, body aches, and subjective fevers. In ED, RVP positive for rhinovirus. She was recently seen and diagnosed with with an ear infection and was started on Augmentin. She is on day 5 out of a 10 day course. Diarrhea started 2 days ago with 3-4 episodes of watery diarrhea. Breathing comfortably on RA, afebrile. Body aches exacerbating patients' chronic lower back pain. No episodes of diarrhea in the ED. Likely non-infectious given start of diarrhea coincides with recent antibiotic use. -Continue previously prescribed Augmentin to finish 10 day course (EOT 09/06). -Patient no longer having diarrhea, will cancel c diff and norovirus. Assessment & Plan (09/02/2024 2:53 PM CDT): Patient presents with 1 week of congestion, body aches, and subjective fevers. In ED, RVP positive for rhinovirus. She was recently seen and diagnosed with with an ear infection and was started on Augmentin. She is on day 5 out of a 10 day course. Diarrhea started 2 days ago with 3-4 episodes of watery diarrhea. Breathing comfortably on RA, afebrile. Body aches exacerbating patients' chronic lower back pain. No episodes of diarrhea in the ED. Likely non-infectious given start of diarrhea coincides with recent antibiotic use. -Continue previously prescribed Augmentin to finish 10 day course (EOT 09/06). -Patient no longer having diarrhea, will cancel c diff and norovirus. Assessment & Plan (09/01/2024 5:43 PM CDT): Patient presents with 1 week of congestion, body aches, and subjective fevers. In ED, RVP positive for rhinovirus. She was recently seen and diagnosed with with an ear infection and was started on Augmentin. She is on day 5 out of a 10 day course. Diarrhea started 2 days ago with 3-4 episodes of watery diarrhea. Breathing comfortably on RA, afebrile. Body aches exacerbating patients' chronic lower back pain. No episodes of diarrhea in the ED. Likely non-infectious given start of diarrhea coincides with recent antibiotic use. -Continue previously prescribed Augmentin to finish 10 day course (EOT 09/06). -Stool culture, c diff, norovirus pending Diarrhea 09/01/2024 Assessment & Plan (09/06/2024 2:16 PM CDT): Patient presents with 1 week of congestion, body aches, and subjective fevers. In ED, RVP positive for rhinovirus. She was recently seen and diagnosed with with an ear infection and was started on Augmentin. She is on day 5 out of a 10 day course. Diarrhea started 2 days ago with 3-4 episodes of watery diarrhea. Breathing comfortably on RA, afebrile. Body aches exacerbating patients' chronic lower back pain. No episodes of diarrhea in the ED. Likely non-infectious given start of diarrhea coincides with recent antibiotic use. -Continue previously prescribed Augmentin to finish 10 day course (EOT 09/06). -Patient no longer having diarrhea, will cancel c diff and norovirus. Assessment & Plan (09/05/2024 4:06 PM CDT): Patient presents with 1 week of congestion, body aches, and subjective fevers. In ED, RVP positive for rhinovirus. She was recently seen and diagnosed with with an ear infection and was started on Augmentin. She is on day 5 out of a 10 day course. Diarrhea started 2 days ago with 3-4 episodes of watery diarrhea. Breathing comfortably on RA, afebrile. Body aches exacerbating patients' chronic lower back pain. No episodes of diarrhea in the ED. Likely non-infectious given start of diarrhea coincides with recent antibiotic use. -Continue previously prescribed Augmentin to finish 10 day course (EOT 09/06). -Patient no longer having diarrhea, will cancel c diff and norovirus. Assessment & Plan (09/04/2024 11:27 AM CDT): Patient presents with 1 week of congestion, body aches, and subjective fevers. In ED, RVP positive for rhinovirus. She was recently seen and diagnosed with with an ear infection and was started on Augmentin. She is on day 5 out of a 10 day course. Diarrhea started 2 days ago with 3-4 episodes of watery diarrhea. Breathing comfortably on RA, afebrile. Body aches exacerbating patients' chronic lower back pain. No episodes of diarrhea in the ED. Likely non-infectious given start of diarrhea coincides with recent antibiotic use. -Continue previously prescribed Augmentin to finish 10 day course (EOT 09/06). -Patient no longer having diarrhea, will cancel c diff and norovirus. Assessment & Plan (09/03/2024 9:52 AM CDT): Patient presents with 1 week of congestion, body aches, and subjective fevers. In ED, RVP positive for rhinovirus. She was recently seen and diagnosed with with an ear infection and was started on Augmentin. She is on day 5 out of a 10 day course. Diarrhea started 2 days ago with 3-4 episodes of watery diarrhea. Breathing comfortably on RA, afebrile. Body aches exacerbating patients' chronic lower back pain. No episodes of diarrhea in the ED. Likely non-infectious given start of diarrhea coincides with recent antibiotic use. -Continue previously prescribed Augmentin to finish 10 day course (EOT 09/06). -Patient no longer having diarrhea, will cancel c diff and norovirus. Assessment & Plan (09/02/2024 2:53 PM CDT): Patient presents with 1 week of congestion, body aches, and subjective fevers. In ED, RVP positive for rhinovirus. She was recently seen and diagnosed with with an ear infection and was started on Augmentin. She is on day 5 out of a 10 day course. Diarrhea started 2 days ago with 3-4 episodes of watery diarrhea. Breathing comfortably on RA, afebrile. Body aches exacerbating patients' chronic lower back pain. No episodes of diarrhea in the ED. Likely non-infectious given start of diarrhea coincides with recent antibiotic use. -Continue previously prescribed Augmentin to finish 10 day course (EOT 09/06). -Patient no longer having diarrhea, will cancel c diff and norovirus. Assessment & Plan (09/01/2024 5:43 PM CDT): Patient presents with 1 week of congestion, body aches, and subjective fevers. In ED, RVP positive for rhinovirus. She was recently seen and diagnosed with with an ear infection and was started on Augmentin. She is on day 5 out of a 10 day course. Diarrhea started 2 days ago with 3-4 episodes of watery diarrhea. Breathing comfortably on RA, afebrile. Body aches exacerbating patients' chronic lower back pain. No episodes of diarrhea in the ED. Likely non-infectious given start of diarrhea coincides with recent antibiotic use. -Continue previously prescribed Augmentin to finish 10 day course (EOT 09/06). -Stool culture, c diff, norovirus pending Rhinovirus 09/01/2024 Assessment & Plan (09/06/2024 2:16 PM CDT): Patient presents with 1 week of congestion, body aches, and subjective fevers. In ED, RVP positive for rhinovirus. She was recently seen and diagnosed with with an ear infection and was started on Augmentin. She is on day 5 out of a 10 day course. Diarrhea started 2 days ago with 3-4 episodes of watery diarrhea. Breathing comfortably on RA, afebrile. Body aches exacerbating patients' chronic lower back pain. No episodes of diarrhea in the ED. Likely non-infectious given start of diarrhea coincides with recent antibiotic use. -Continue previously prescribed Augmentin to finish 10 day course (EOT 09/06). -Patient no longer having diarrhea, will cancel c diff and norovirus. Assessment & Plan (09/05/2024 4:06 PM CDT): Patient presents with 1 week of congestion, body aches, and subjective fevers. In ED, RVP positive for rhinovirus. She was recently seen and diagnosed with with an ear infection and was started on Augmentin. She is on day 5 out of a 10 day course. Diarrhea started 2 days ago with 3-4 episodes of watery diarrhea. Breathing comfortably on RA, afebrile. Body aches exacerbating patients' chronic lower back pain. No episodes of diarrhea in the ED. Likely non-infectious given start of diarrhea coincides with recent antibiotic use. -Continue previously prescribed Augmentin to finish 10 day course (EOT 09/06). -Patient no longer having diarrhea, will cancel c diff and norovirus. Assessment & Plan (09/04/2024 11:27 AM CDT): Patient presents with 1 week of congestion, body aches, and subjective fevers. In ED, RVP positive for rhinovirus. She was recently seen and diagnosed with with an ear infection and was started on Augmentin. She is on day 5 out of a 10 day course. Diarrhea started 2 days ago with 3-4 episodes of watery diarrhea. Breathing comfortably on RA, afebrile. Body aches exacerbating patients' chronic lower back pain. No episodes of diarrhea in the ED. Likely non-infectious given start of diarrhea coincides with recent antibiotic use. -Continue previously prescribed Augmentin to finish 10 day course (EOT 09/06). -Patient no longer having diarrhea, will cancel c diff and norovirus. Assessment & Plan (09/03/2024 9:52 AM CDT): Patient presents with 1 week of congestion, body aches, and subjective fevers. In ED, RVP positive for rhinovirus. She was recently seen and diagnosed with with an ear infection and was started on Augmentin. She is on day 5 out of a 10 day course. Diarrhea started 2 days ago with 3-4 episodes of watery diarrhea. Breathing comfortably on RA, afebrile. Body aches exacerbating patients' chronic lower back pain. No episodes of diarrhea in the ED. Likely non-infectious given start of diarrhea coincides with recent antibiotic use. -Continue previously prescribed Augmentin to finish 10 day course (EOT 09/06). -Patient no longer having diarrhea, will cancel c diff and norovirus. Assessment & Plan (09/02/2024 2:53 PM CDT): Patient presents with 1 week of congestion, body aches, and subjective fevers. In ED, RVP positive for rhinovirus. She was recently seen and diagnosed with with an ear infection and was started on Augmentin. She is on day 5 out of a 10 day course. Diarrhea started 2 days ago with 3-4 episodes of watery diarrhea. Breathing comfortably on RA, afebrile. Body aches exacerbating patients' chronic lower back pain. No episodes of diarrhea in the ED. Likely non-infectious given start of diarrhea coincides with recent antibiotic use. -Continue previously prescribed Augmentin to finish 10 day course (EOT 09/06). -Patient no longer having diarrhea, will cancel c diff and norovirus. Assessment & Plan (09/01/2024 5:43 PM CDT): Patient presents with 1 week of congestion, body aches, and subjective fevers. In ED, RVP positive for rhinovirus. She was recently seen and diagnosed with with an ear infection and was started on Augmentin. She is on day 5 out of a 10 day course. Diarrhea started 2 days ago with 3-4 episodes of watery diarrhea. Breathing comfortably on RA, afebrile. Body aches exacerbating patients' chronic lower back pain. No episodes of diarrhea in the ED. Likely non-infectious given start of diarrhea coincides with recent antibiotic use. -Continue previously prescribed Augmentin to finish 10 day course (EOT 09/06). -Stool culture, c diff, norovirus pending Lumbar spondylosis 08/14/2024 Overview (08/14/2024): Images from the original note were not included. MRI L SPINE 2024 Assessment & Plan (09/25/2024 9:28 AM CDT): Given signs and symptoms of facet arthropathy, will proceed with bilateral L4-5, L5-S1 MBB today. R/B/A discussed, including but not limited to bleeding, infection, increased pain, and possible nerve injury/ injury to surrounding structures. Alternatives (risks) include: medication managment (side effects, dependency), no intervention (increased pain). Patient understand risks/benefits/alternatives and agrees to proceed with injection. Assessment & Plan (09/06/2024 2:16 PM CDT): She has dealt with severe chronic pain since her most recent transplant in 2020. Attempts have been made to alter her immunosuppressants with no improvement in her pain. Frequent ED visits for acute lower back pain. She follows with Pain Management last saw 08/14/2024. She was recommended to get LMBB. She was planned for the procedure last Monday, but because she was on Augmentin, the procedure was cancelled. With the acute illness this past week, this has been exacerbating her chronic lower back pain. In ED, received IV 1 mg dilaudid q2h and benadryl. Switched in ED to morphine 6 mg q2h given patient has previously received morphine with improvements in pain. -Pain regimen: Switch back to dilaudid 1mg PRN q4h from morphine to 4 mg q4h PRN, APAP. Continue Home effexor and duloxetine 60 mg daily. Wean down opioids as able as patient is not on opioids at home. -Thorough discussion with patient in regards to acute on chronic pain. Discussed that we would not be able to prescribe custodial opioids on discharge. Discussed importance of outpatient follow up with Pain Management to receive LMBB. Assessment & Plan (09/05/2024 4:06 PM CDT): She has dealt with severe chronic pain since her most recent transplant in 2020. Attempts have been made to alter her immunosuppressants with no improvement in her pain. Frequent ED visits for acute lower back pain. She follows with Pain Management last saw 08/14/2024. She was recommended to get LMBB. She was planned for the procedure last Monday, but because she was on Augmentin, the procedure was cancelled. With the acute illness this past week, this has been exacerbating her chronic lower back pain. In ED, received IV 1 mg dilaudid q2h and benadryl. Switched in ED to morphine 6 mg q2h given patient has previously received morphine with improvements in pain. -Pain regimen: Switch back to dilaudid 1mg PRN q4h from morphine to 4 mg q4h PRN, APAP. Continue Home effexor and duloxetine 60 mg daily. Wean down opioids as able as patient is not on opioids at home. -Thorough discussion with patient in regards to acute on chronic pain. Discussed that we would not be able to prescribe custodial opioids on discharge. Discussed importance of outpatient follow up with Pain Management to receive LMBB. Assessment & Plan (09/04/2024 11:27 AM CDT): She has dealt with severe chronic pain since her most recent transplant in 2020. Attempts have been made to alter her immunosuppressants with no improvement in her pain. Frequent ED visits for acute lower back pain. She follows with Pain Management last saw 08/14/2024. She was recommended to get LMBB. She was planned for the procedure last Monday, but because she was on Augmentin, the procedure was cancelled. With the acute illness this past week, this has been exacerbating her chronic lower back pain. In ED, received IV 1 mg dilaudid q2h and benadryl. Switched in ED to morphine 6 mg q2h given patient has previously received morphine with improvements in pain. -Pain regimen: Switch back to dilaudid 1mg PRN q4h from morphine to 4 mg q4h PRN, APAP. Continue Home effexor and duloxetine 60 mg daily. Wean down opioids as able as patient is not on opioids at home. -Thorough discussion with patient in regards to acute on chronic pain. 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 Discussed importance of outpatient follow up with Pain Management to receive LMBB. Assessment & Plan (09/03/2024 9:52 AM CDT): She has dealt with severe chronic pain since her most recent transplant in 2020. Attempts have been made to alter her immunosuppressants with no improvement in her pain. Frequent ED visits for acute lower back pain. She follows with Pain Management last saw 08/14/2024. She was recommended to get LMBB. She was planned for the procedure last Monday, but because she was on Augmentin, the procedure was cancelled. With the acute illness this past week, this has been exacerbating her chronic lower back pain. In ED, received IV 1 mg dilaudid q2h and benadryl. Switched in ED to morphine 6 mg q2h given patient has previously received morphine with improvements in pain. -Pain regimen: Decrease morphine to 4 mg q4h PRN, APAP. Continue Home effexor and duloxetine 60 mg daily. Wean down opioids as able as patient is not on opioids at home. -Thorough discussion with patient in regards to acute on chronic pain. Discussed that we would not be able to prescribe custodial opioids on discharge. Discussed importance of outpatient follow up with Pain Management to receive LMBB. Assessment & Plan (09/02/2024 2:53 PM CDT): She has dealt with severe chronic pain since her most recent transplant in 2020. Attempts have been made to alter her immunosuppressants with no improvement in her pain. Frequent ED visits for acute lower back pain. She follows with Pain Management last saw 08/14/2024. She was recommended to get LMBB. She was planned for the procedure last Monday, but because she was on Augmentin, the procedure was cancelled. With the acute illness this past week, this has been exacerbating her chronic lower back pain. In ED, received IV 1 mg dilaudid q2h and benadryl. Switched in ED to morphine 6 mg q2h given patient has previously received morphine with improvements in pain. -Pain regimen: Decrease morphine to 4 mg q4h PRN, APAP. Continue Home effexor and duloxetine 60 mg daily. Wean down opioids as able as patient is not on opioids at home. -Thorough discussion with patient in regards to acute on chronic pain. Discussed that we would not be able to prescribe custodial opioids on discharge. Discussed importance of outpatient follow up with Pain Management to receive LMBB. Assessment & Plan (09/01/2024 5:43 PM CDT): She has dealt with severe chronic pain since her most recent transplant in 2020. Attempts have been made to alter her immunosuppressants with no improvement in her pain. Frequent ED visits for acute lower back pain. She follows with Pain Management last saw 08/14/2024. She was recommended to get LMBB. She was planned for the procedure last Monday, but because she was on Augmentin, the procedure was cancelled. With the acute illness this past week, this has been exacerbating her chronic lower back pain. In ED, received IV 1 mg dilaudid q2h and benadryl. Switched in ED to morphine 6 mg q2h given patient has previously received morphine with improvements in pain. -Pain regimen: Space out and decrease Morphine to 4 mg q4h PRN, APAP. Continue Home effexor and duloxetine 60 mg daily. Wean down opioids as able as patient is not on opioids at home. -Thorough discussion with patient in regards to acute on chronic pain. Discussed that we would not be able to prescribe custodial opioids on discharge. Discussed importance of outpatient follow up with Pain Management to receive LMBB. Assessment & Plan (08/14/2024 4:27 PM CDT): Pain is mixed, worst with flexion biased movements, but also prolonged standing with positive facet loading. Discussed several treatment options at length including intracept vs LMBB/RFA. Plan to proceed with LMBB. Does have numbness/pain radiating to anterior thighs, could consider LESI as well. Lumbar disc disease with radiculopathy Assessment & Plan (09/25/2024 10:07 AM CDT): Reports pain into the legs is tolerable. Can consider LESI, but does have some lipomatosis so would only consider if pain is uncontrolled. Thoracic spinal stenosis 08/14/2024 Overview (08/14/2024): MRI T SPINE 07/12/24 Some mild-moderate canal stenosis worst at T3-4 with mixed modic changes (T1 and T2) along the inferior endplates at T7-11. Assessment & Plan (09/06/2024 2:16 PM CDT): She has dealt with severe chronic pain since her most recent transplant in 2020. Attempts have been made to alter her immunosuppressants with no improvement in her pain. Frequent ED visits for acute lower back pain. She follows with Pain Management last saw 08/14/2024. She was recommended to get LMBB. She was planned for the procedure last Monday, but because she was on Augmentin, the procedure was cancelled. With the acute illness this past week, this has been exacerbating her chronic lower back pain. In ED, received IV 1 mg dilaudid q2h and benadryl. Switched in ED to morphine 6 mg q2h given patient has previously received morphine with improvements in pain. -Pain regimen: Switch back to dilaudid 1mg PRN q4h from morphine to 4 mg q4h PRN, APAP. Continue Home effexor and duloxetine 60 mg daily. Wean down opioids as able as patient is not on opioids at home. -Thorough discussion with patient in regards to acute on chronic pain. 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 Discussed importance of outpatient follow up with Pain Management to receive LMBB. Assessment & Plan (09/05/2024 4:06 PM CDT): She has dealt with severe chronic pain since her most recent transplant in 2020. Attempts have been made to alter her immunosuppressants with no improvement in her pain. Frequent ED visits for acute lower back pain. She follows with Pain Management last saw 08/14/2024. She was recommended to get LMBB. She was planned for the procedure last Monday, but because she was on Augmentin, the procedure was cancelled. With the acute illness this past week, this has been exacerbating her chronic lower back pain. In ED, received IV 1 mg dilaudid q2h and benadryl. Switched in ED to morphine 6 mg q2h given patient has previously received morphine with improvements in pain. -Pain regimen: Switch back to dilaudid 1mg PRN q4h from morphine to 4 mg q4h PRN, APAP. Continue Home effexor and duloxetine 60 mg daily. Wean down opioids as able as patient is not on opioids at home. -Thorough discussion with patient in regards to acute on chronic pain. 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 Discussed importance of outpatient follow up with Pain Management to receive LMBB. Assessment & Plan (09/04/2024 11:27 AM CDT): She has dealt with severe chronic pain since her most recent transplant in 2020. Attempts have been made to alter her immunosuppressants with no improvement in her pain. Frequent ED visits for acute lower back pain. She follows with Pain Management last saw 08/14/2024. She was recommended to get LMBB. She was planned for the procedure last Monday, but because she was on Augmentin, the procedure was cancelled. With the acute illness this past week, this has been exacerbating her chronic lower back pain. In ED, received IV 1 mg dilaudid q2h and benadryl. Switched in ED to morphine 6 mg q2h given patient has previously received morphine with improvements in pain. -Pain regimen: Switch back to dilaudid 1mg PRN q4h from morphine to 4 mg q4h PRN, APAP. Continue Home effexor and duloxetine 60 mg daily. Wean down opioids as able as patient is not on opioids at home. -Thorough discussion with patient in regards to acute on chronic pain. 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 Discussed importance of outpatient follow up with Pain Management to receive LMBB. Assessment & Plan (09/03/2024 9:52 AM CDT): She has dealt with severe chronic pain since her most recent transplant in 2020. Attempts have been made to alter her immunosuppressants with no improvement in her pain. Frequent ED visits for acute lower back pain. She follows with Pain Management last saw 08/14/2024. She was recommended to get LMBB. She was planned for the procedure last Monday, but because she was on Augmentin, the procedure was cancelled. With the acute illness this past week, this has been exacerbating her chronic lower back pain. In ED, received IV 1 mg dilaudid q2h and benadryl. Switched in ED to morphine 6 mg q2h given patient has previously received morphine with improvements in pain. -Pain regimen: Decrease morphine to 4 mg q4h PRN, APAP. Continue Home effexor and duloxetine 60 mg daily. Wean down opioids as able as patient is not on opioids at home. -Thorough discussion with patient in regards to acute on chronic pain. Discussed that we would not be able to prescribe custodial opioids on discharge. Discussed importance of outpatient follow up with Pain Management to receive LMBB. Assessment & Plan (09/02/2024 2:53 PM CDT): She has dealt with severe chronic pain since her most recent transplant in 2020. Attempts have been made to alter her immunosuppressants with no improvement in her pain. Frequent ED visits for acute lower back pain. She follows with Pain Management last saw 08/14/2024. She was recommended to get LMBB. She was planned for the procedure last Monday, but because she was on Augmentin, the procedure was cancelled. With the acute illness this past week, this has been exacerbating her chronic lower back pain. In ED, received IV 1 mg dilaudid q2h and benadryl. Switched in ED to morphine 6 mg q2h given patient has previously received morphine with improvements in pain. -Pain regimen: Decrease morphine to 4 mg q4h PRN, APAP. Continue Home effexor and duloxetine 60 mg daily. Wean down opioids as able as patient is not on opioids at home. -Thorough discussion with patient in regards to acute on chronic pain. Discussed that we would not be able to prescribe custodial opioids on discharge. Discussed importance of outpatient follow up with Pain Management to receive LMBB. Assessment & Plan (09/01/2024 5:43 PM CDT): She has dealt with severe chronic pain since her most recent transplant in 2020. Attempts have been made to alter her immunosuppressants with no improvement in her pain. Frequent ED visits for acute lower back pain. She follows with Pain Management last saw 08/14/2024. She was recommended to get LMBB. She was planned for the procedure last Monday, but because she was on Augmentin, the procedure was cancelled. With the acute illness this past week, this has been exacerbating her chronic lower back pain. In ED, received IV 1 mg dilaudid q2h and benadryl. Switched in ED to morphine 6 mg q2h given patient has previously received morphine with improvements in pain. -Pain regimen: Space out and decrease Morphine to 4 mg q4h PRN, APAP. Continue Home effexor and duloxetine 60 mg daily. Wean down opioids as able as patient is not on opioids at home. -Thorough discussion with patient in regards to acute on chronic pain. Discussed that we would not be able to prescribe custodial opioids on discharge. Discussed importance of outpatient follow up with Pain Management to receive LMBB. Assessment & Plan (08/14/2024 4:30 PM CDT): Discussed targeting pain generators in lumbar spine prior to considering thoracic interventions as pain may be referred from lower in her spine. Patient agreeable. Hyperkalemia 06/08/2024 Assessment & Plan (06/13/2024 1:50 [...] reports feeling generally poor since my second transplant.. She primarily struggles with chronic back pain [...] appt Mixed anxiety-depression 06/05/2024 Assessment & Plan (09/06/2024 2:17 PM CDT): Previously on buproprion, but worsened anxiety symptoms, not currently taking. Home regimen: effexor and duloxetine. -Continue home effexor 18.75 mg and duloxetine 60 mg daily. Assessment & Plan (09/05/2024 4:06 PM CDT): Previously on buproprion, but worsened anxiety symptoms, not currently taking. Home regimen: effexor and duloxetine. -Continue home effexor 18.75 mg and duloxetine 60 mg daily. Assessment & Plan (09/04/2024 11:27 AM CDT): Previously on buproprion, but worsened anxiety symptoms, not currently taking. Home regimen: effexor and duloxetine. -Continue home effexor 18.75 mg and duloxetine 60 mg daily. Assessment & Plan (09/03/2024 9:52 AM CDT): Previously on buproprion, but worsened anxiety symptoms, not currently taking. Home regimen: effexor and duloxetine. -Continue home effexor 18.75 mg and duloxetine 60 mg daily. Assessment & Plan (09/02/2024 2:53 PM CDT): Previously on buproprion, but worsened anxiety symptoms, not currently taking. Home regimen: effexor and duloxetine. -Continue home effexor 18.75 mg and duloxetine 60 mg daily. Assessment & Plan (09/01/2024 5:43 PM CDT): Previously on buproprion, but worsened anxiety symptoms, not currently taking. Home regimen: effexor and duloxetine. -Continue home effexor 18.75 mg and duloxetine 60 mg daily. Assessment & Plan (06/05/2024 6:50 PM CDT): Denies SI. Evaluated by Psych 06/05, no changes to current meds. - Continue home Wellbutrin, venlafaxine HTN (hypertension) 05/30/2024 Assessment & Plan (09/06/2024 2:16 PM CDT): TTE from 05/2024 with LVEF 70%, mod concentric LVH. Mod dilated LA. -Continue home metoprolol tartrate 100 mg BID. Assessment & Plan (09/05/2024 4:06 PM CDT): TTE from 05/2024 with LVEF 70%, mod concentric LVH. Mod dilated LA. -Continue home metoprolol tartrate 100 mg BID. Assessment & Plan (09/04/2024 11:27 AM CDT): TTE from 05/2024 with LVEF 70%, mod concentric LVH. Mod dilated LA. -Continue home metoprolol tartrate 100 mg BID. Assessment & Plan (09/03/2024 9:52 AM CDT): TTE from 05/2024 with LVEF 70%, mod concentric LVH. Mod dilated LA. -Continue home metoprolol tartrate 100 mg BID. Assessment & Plan (09/02/2024 2:53 PM CDT): TTE from 05/2024 with LVEF 70%, mod concentric LVH. Mod dilated LA. -Continue home metoprolol tartrate 100 mg BID. Assessment & Plan (09/01/2024 5:45 PM CDT): TTE from 05/2024 with LVEF 70%, mod concentric LVH. Mod dilated LA. Continue home metoprolol tartrate 100 mg BID. 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 She has CKD with baseline creatinine ~2. Previously followed at [facility], but has she has been wanting to transfer care to [place] but has not been able to schedule an appointment. She follows with [facility]. Per Liver Transplant office visit note 06/26/2024, should be on tacro 4mg daily, azathioprine 100 mg daily, prednisone 2.5 mg. She takes tacro and azathiprine; however, patient self-discontinued her prednisone given concerns for weight gain and worsening mental health. She was having right lower quadrant pain that radiated down her right side, and she was concerned about transplant rejection. Transplant Kidney US negative for renal artery stenosis and normal transplant kidney morphology w/o hydronephrosis. -Transplant Hepatology consulted: ALP stably elevated AST/ALT normal. No concerns for rejection at this time. -Transplant Nephrology consulted. -CMV negative, BK pending, and DSA HLA labs -Strict I/Os -cont Tacrolimus 2mg, tacro level 6.4 -Hold azathioprine 100 mg. Restart on 09/07 -Continue prednisone 5 mg daily -Blood cultures 1/2 came back positive for MRSE after 21 hours. Likely contaminant given clinically stable. F/u blood cultures. -Outpatient transplant nephrology referral on discharge. 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 She has CKD with baseline creatinine ~2. Previously followed at [facility], but has she has been wanting to transfer care to [place] but has not been able to schedule an appointment. She follows with [facility]. Per Liver Transplant office visit note 06/26/2024, should be on tacro 4mg daily, azathioprine 100 mg daily, prednisone 2.5 mg. She takes tacro and azathiprine; however, patient self-discontinued her prednisone given concerns for weight gain and worsening mental health. She was having right lower quadrant pain that radiated down her right side, and she was concerned about transplant rejection. Transplant Kidney US negative for renal artery stenosis and normal transplant kidney morphology w/o hydronephrosis. -Transplant Hepatology consulted: ALP stably elevated AST/ALT normal. No concerns for rejection at this time. -Transplant Nephrology consulted. -CMV negative, BK pending, and DSA HLA labs -Strict I/Os -Restart Tacrolimus 2mg, tacro level 6.2 Recheck AM tacro level. -Hold azathioprine 100 mg. Restart on 09/07 -Continue prednisone 5 mg daily -Blood cultures 1/2 came back positive for MRSE after 21 hours. Likely contaminant given clinically stable. F/u blood cultures. -Outpatient transplant nephrology referral on discharge. 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 She has CKD with baseline creatinine ~2. Previously followed at [facility], but has she has been wanting to transfer care to [place] but has not been able to schedule an appointment. She follows with [facility]. Per Liver Transplant office visit note 06/26/2024, should be on tacro 4mg daily, azathioprine 100 mg daily, prednisone 2.5 mg. She takes tacro and azathiprine; however, patient self-discontinued her prednisone given concerns for weight gain and worsening mental health. She was having right lower quadrant pain that radiated down her right side, and she was concerned about transplant rejection. Transplant Kidney US negative for renal artery stenosis and normal transplant kidney morphology w/o hydronephrosis. -Transplant Hepatology consulted: ALP stably elevated AST/ALT normal. No concerns for rejection at this time. -Transplant Nephrology consulted. -CMV negative, BK pending, and DSA HLA labs -Strict I/Os -Hold tacro 4 mg morning dose given elevated tacro level of 10.9. Recheck AM tacro level. -Hold azathioprine 100 mg -Continue prednisone 5 mg daily -Will start continuous IVF -Blood cultures 1/2 came back positive for MRSE after 21 hours. Likely contaminant given clinically stable. F/u blood cultures. -Outpatient transplant nephrology referral on discharge. 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 She has CKD with baseline creatinine ~2. Previously followed at [facility], but has she has been wanting to transfer care to [place] but has not been able to schedule an appointment. She follows with [facility]. Per Liver Transplant office visit note 06/26/2024, should be on tacro 4mg daily, azathioprine 100 mg daily, prednisone 2.5 mg. She takes tacro and azathiprine; however, patient self-discontinued her prednisone given concerns for weight gain and worsening mental health. She was having right lower quadrant pain that radiated down her right side, and she was concerned about transplant rejection. Transplant Kidney US negative for renal artery stenosis and normal transplant kidney morphology w/o hydronephrosis. -Transplant Hepatology consulted: ALP stably elevated AST/ALT normal. No concerns for rejection at this time. -Transplant Nephrology consulted. -Will obtain CMV, BK, and DSA HLA labs -Strict I/Os -Hold tacro 4 mg morning dose given elevated tacro level of 17.8. Recheck AM tacro level. -Hold azathioprine 100 mg -Continue prednisone 5 mg daily -Will start continuous IVF -Blood cultures 1/2 came back positive for MRSE after 21 hours. Likely contaminant given clinically stable. Will repeat blood cultures. -Outpatient transplant nephrology referral on discharge. 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 She has CKD with baseline creatinine ~2. Previously followed at [facility], but has she has been wanting to transfer care to [place] but has not been able to schedule an appointment. She follows with [facility]. Per Liver Transplant office visit note 06/26/2024, should be on tacro 4mg daily, azathioprine 100 mg daily, prednisone 2.5 mg. She takes tacro and azathiprine; however, patient self-discontinued her prednisone given concerns for weight gain and worsening mental health. She was having right lower quadrant pain that radiated down her right side, and she was concerned about transplant rejection. Transplant Kidney US negative for renal artery stenosis and normal transplant kidney morphology w/o hydronephrosis. -Transplant Hepatology consulted: ALP stably elevated AST/ALT normal. No concerns for rejection at this time. -Transplant Nephrology consulted. -Will obtain CMV, BK, and DSA HLA labs -Strict I/Os -Hold tacro 4 mg morning dose 09/03 given elevated tacro level of 17. Recheck tacro level 09/03. -Hold azathioprine 100 mg -Increase prednisone to 5 mg daily (previously 2.5) -Given worsening CHRISTY on CKD, gave 1 L of IVF -Blood cultures 03/21 came back positive for MRSE after 21 hours. Likely contaminant given clinically stable. Will repeat blood cultures. -Outpatient transplant nephrology referral on discharge. 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 She has CKD with baseline creatinine ~2. Previously followed at [facility], but has she has been wanting to transfer care to [place] but has not been able to schedule an appointment. She follows with [facility]. Per Liver Transplant office visit note 06/26/2024, should be on tacro 4mg daily, azathioprine 100 mg daily, prednisone 2.5 mg. She takes tacro and azathiprine; however, patient self-discontinued her prednisone given concerns for weight gain and worsening mental health. She was having right lower quadrant pain that radiated down her right side, and she was concerned about transplant rejection. Transplant Kidney US negative for renal artery stenosis and normal transplant kidney morphology w/o hydronephrosis. -Consult Transplant Hepatology and Nephrology given immunosuppression with active infection and concerns for non-adherence with immunosuppression medications. -Continue tacrolimus 4 mg daily. Will check tacro trough 6/16 AM. -Continue azathioprine 100 mg, given patient is clinically doing well despite infection with Rhinovirus. -Restart prednisone 2.5 mg -Outpatient transplant nephrology referral on discharge. Assessment & Plan (06/13/2024 1:50 PM CDT): [...] Transplant starting process of assuming care from [facility], but in short term they recommend patient follow up with renal transplant at [facility]. - She is NOW actively enrolled in the [employer] free patient assistance program through mar 2025 - script needs to be sent to [facility] (sent). Hyperbilirubinemia 04/16/2020 Assessment & Plan (04/16/2020 5:01 AM SALES DEVELOPMENT MANAGER): - T. Bili of 7 (last was [...] 07/25/2019 Assessment & Plan (04/16/2020 2:25 AM SALES DEVELOPMENT MANAGER): See hyperbili problem. Concern for ascites Assessment [...] 12/14/2016 Assessment & Plan (04/16/2020 2:26 AM SALES DEVELOPMENT MANAGER): - Chronic, concerned that this may be related to liver disease. Assessment & Plan (07/25/2019 6:27 AM CDT): Plts were 54 at OSH. Likely secondary to liver disease. Chronic and stable. 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 Gastric ulcer 10/24/2016 Assessment & Plan (09/06/2024 2:17 PM CDT): Continue pantoprazole 40 mg daily Assessment & Plan (09/05/2024 4:06 PM CDT): Continue pantoprazole 40 mg daily Assessment & Plan (09/04/2024 11:27 AM CDT): Continue pantoprazole 40 mg daily Assessment & Plan (09/03/2024 9:52 AM CDT): Continue pantoprazole 40 mg daily Assessment & Plan (09/02/2024 2:53 PM CDT): Continue pantoprazole 40 mg daily Assessment & Plan (09/01/2024 5:43 PM CDT): Continue pantoprazole 40 mg daily Anemia, unspecified 05/04/2012 Short cervix affecting 03/28/2012 [...] liver and kidney transplant 04/2020. 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 We would need to call [facility] to identify a contracted center ([phone]). She lives close enough to [place] that would be the most likely city she could travel to. She also noted that she could always remarry an ex- as he has insurance that may be covered at [facility]/. Appreciate note from nephrology and agree with restarting oral diuretics. Can continue tacrolimus at the current dose. MRI/MRCP completed and will review with radiology to identify if any role for PTC. Assessment & Plan (04/16/2020 2:26 AM SALES DEVELOPMENT MANAGER): S/p liver tranplant in 1992 for biliary [...] meds Assessment & Plan (04/16/2020 5:01 AM SALES DEVELOPMENT MANAGER): Unclear if progression of CKD vs acute [...] Cr of 1.8. She follows with local engine hostler Dr. Mathew and thinks her baseline is 2.1. She was at 2.3 at OSH. She took some diuretics at home and was given lasix at OSH ED. --UA, urine lytes --get records from her engine hostler to find out baseline --random tacro level --monitor Is & Os; avoid nephrotoxins Social History Tobacco Use Types Packs/Day Years Used Date Smoking Tobacco: Every Day Cigarettes Smokeless Tobacco: Never Tobacco Cessation:Ready to Q uit: Not Asked; Counseling Given: Not Answered Comments:1 cigarette day Alcohol Use Standard Drinks/Week Comments Never 0 (1 standard drink = 0.6 oz pur e alcohol) rare [facility] Utilities Answer Date Recorded In the past 12 months has [employer], gas, oil, or water [employer] threatened to shut off services in your home? No 09/03/2024 Social Connection and Isolation Panel [NHANES] A nswer Date Recorded In a typical week, how many times do you talk on the phone with family, friends, or neighbors? Three times a week 09/04/19 How often do you get togethe r with friends or relatives? Three times a week 09/03/2024 How often do you attend chur ch or oriental orthodox services? Never 09/03/2024 Do you belong to any clubs o r organizations such as confucianism groups, unions, fraternal or athletic groups, or school groups? No 09/03/2024 How often do you attend meet ings of the clubs or organizations you belong to? Never 09/03/2024 Are you , , di vorced, , never , or living with a partner? Living with partner 09/03/2024 AUDIT-C Answer Date Recorded Q1: How often do you have a drink containing alcohol? Never 09/25/2024 Q2: How many drinks containi ng alcohol do you have on a typical day when you are drinking? Patient does not drink Q3: How often do you have si x or more drinks on one occasion? Never 09/25/2024 Overall Financial Resource Strain (CARDIA) Answe r [...] in the past 12 m [facility], were you homeless or living in a senior living (including now)? No 09/03/2024 Personal Safety Answer Date Recorded Have you ever been in or are you currently in a harmful physical or emotional relationship or is someone making you feel afraid or unsafe? 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 Gender Identity Not on file Sexual Orientation Not on file Last Filed Vital Signs Vital Sign Reading Time Taken Comments Blood Pressure 158/101 09/25/2024 9:56 AM CDT Pulse 70 09/25/2024 9:56 AM CDT Temperature 36.6 C (97.8 F) 09/25/2024 9:04 AM CDT Respiratory Rate 15 09/25/2024 9:56 AM CDT Oxygen Saturation 99% 09/25/2024 9:56 AM CDT Inhaled Oxygen Concentration - - Weight 81.6 kg (180 lb) 09/25/2024 9:04 AM CDT Height 157.5 cm (5' 2) 09/25/2024 9:04 AM CDT Body Mass Index 32.92 09/25/2024 9:04 AM CDT Plan of Treatment Not on file Goals Goal Patient Goal Type Associated Problems Recent Progress Patient-Stated? Author CCM Chronic Pain Care Plan Chronic Care Management On track(2024 9:02 AM CDT) Matias Arce RN Note: Problem: Chronic Pain Goals: 1. Minimize further functional decline 2. Maximize quality of life 3. Control pain Strategies: - Activity/exercise program recommendation - Conservative stepwise pain medicine strategy with multi-disciplinary approach - Recommend healthy lifestyle strategies and compensatory methods as needed Procedures Procedure Name Priority Date/Time Associated Diagnosis Comments PAIN MGMT IMAGING LUMBAR/SACRAL FACET/ MEDIAL BRANCH BLOCK BILATERAL Schedule Routine, Read Routine (OP Routine) 09/25/2024 9:47 AM CDT Lumbar spondylosis EGFR Routine 09/06/2024 9:48 AM CDT TACROLIMUS LEVEL, TROUGH Timed 09/06/2024 9:48 AM CDT COMPREHENSIVE METABOLIC PANEL Routine 09/06/2024 9:48 AM CDT EGFR Routine 09/05/2024 10:47 AM CDT DIFFERENTIAL AUTO Routine 09/05/2024 10:47 AM CDT COMPREHENSIVE METABOLIC PANEL Routine 09/05/2024 10:47 AM CDT CBC WITH AUTO DIFFERENTIAL Routine 09/05/2024 10:47 AM CDT TACROLIMUS LEVEL, TROUGH Routine 09/05/2024 10:47 AM CDT EGFR Routine 09/04/2024 5:03 AM CDT DIFFERENTIAL AUTO Routine 09/04/2024 5:0 3 AM CDT COMPREHENSIVE METABOLIC PANEL Routine 09/04/2024 5:03 AM CDT CBC WITH AUTO DIFFERENTIAL Routine 09/04/2024 5:03 AM CDT TACROLIMUS LEVEL, TROUGH Routine 09/04/2024 5:03 AM CDT EGFR Routine 09/03/2024 5:21 AM CDT DIFFERENTIAL AUTO Routine 09/03/2024 5:2 1 AM CDT COMPREHENSIVE METABOLIC PANEL Routine 09/03/2024 5:21 AM CDT CBC WITH AUTO DIFFERENTIAL Routine 09/03/2024 5:21 AM CDT TACROLIMUS LEVEL, TROUGH Routine 09/03/2024 5:21 AM CDT HLA DONOR SPECIFIC ANTIBODY REPORT 09/02/2024 12:21 PM CDT EGFR STAT 09/02/2024 12:21 PM CDT HLA ANTIBODY SCREEN BY SINGLE ANTIGEN STAT 09/02/2024 12:21 PM CDT HLA ANTIBODY SCREEN - DSA (CLASS I AND CLASS II) STAT 09/02/2024 12:21 PM CDT Abdominal pain RENAL FUNCTION PANEL STAT 09/02/2024 12:21 PM CDT BLOOD CULTURE STAT 09/02/2024 12:21 PM CDT BLOOD CULTURE STAT 09/02/2024 12:21 PM CDT BK VIRUS PCR QUANTITATIVE STAT 09/02/2024 12:21 PM CDT CYTOMEGALOVIRUS (CMV) DNA, QUANT GEN LAB STAT 09/02/2024 12:21 PM CDT EGFR Routine 09/02/2024 5:16 AM CDT DIFFERENTIAL AUTO Routine 09/02/2024 5:1 6 AM CDT TACROLIMUS LEVEL, TROUGH Timed 09/02/2024 5:16 AM CDT COMPREHENSIVE METABOLIC PANEL Routine 09/02/2024 5:16 AM CDT CBC WITH AUTO DIFFERENTIAL Routine 09/02/2024 5:16 AM CDT TROPONIN I HIGH-SENSITIVITY 2-HOUR Timed 09/01/2024 2:58 AM CDT ECG 12-LEAD Routine 09/01/2024 2:53 AM CDT XR CHEST PA LATERAL 2 VIEWS ED 09/01/2024 2:23 AM CDT BLOOD CULTURE Routine 09/01/2024 2:18 AM CDT US RENAL TRANSPLANT W DOPPLERS ED 09/01/2024 1:35 AM CDT RESPIRATORY PATHOGEN PANEL STAT 09/01/2024 12:58 AM CDT EGFR STAT 09/01/2024 12:57 AM CDT DIFFERENTIAL AUTO STAT 09/01/2024 12:57 AM CDT SEPSIS LACTATE WITH REFLEX STAT 09/01/2024 12:57 AM CDT TROPONIN I HIGH-SENSITIVITY SERIES (BASELINE, 2HR, 4HR, 6HR) STAT 09/01/2024 12:57 AM CDT LIPASE STAT 09/01/2024 12:57 AM CDT TACROLIMUS LEVEL, RANDOM STAT 09/01/2024 12:57 AM CDT PHOSPHORUS STAT 09/01/2024 12:57 AM CDT MAGNESIUM STAT 09/01/2024 12:57 AM CDT COMPREHENSIVE METABOLIC PANEL STAT 09/01/2024 12:57 AM CDT CBC WITH AUTO DIFFERENTIAL STAT 09/01/2024 12:57 AM CDT BLOOD CULTURE Routine 09/01/2024 12:57 AM CDT URINALYSIS AND REFLEX TO MICROSCOPIC AND CULTURE STAT 09/01/2024 12:57 AM CDT SURGICAL PATHOLOGY Routine 08/02/2024 9: 18 AM CDT History of liver transplant (HCC) History of kidney transplant XR SCOLIOSIS 6 OR MORE VIEWS Schedule [...] OUTSIDE FILMS Routine 07/09/2024 8:44 AM CDT HEPATITIS PANEL, ACUTE Routine 6:35 AM 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 Please refer to the physician's procedure / OR operative note. us Igor Graham MD IMG PAIN MGMT PROCEDURE S Final Result [facility] * (ABNORMAL) eGFR (09/06/2024 9:48 AM CDT) eGFR 31(L) >=60 mL/min/1. 73 [...] interpretive data was last reviewed 2021. Blood 09/06/2024 9:48 AM CDT 09/06/2024 10:15 AM CDT us Britta Zhang MD LAB BLOOD ORDERABLES Aniya l Result Performing Organization Address City/[facility]/ZIP Co de Phone Number [facility] [place] [address] * Tacrolimus level trough (09/06/2024 9:48 AM CDT) Tacrolimus trough 6.4 ng/mL Comment: Interpretive Data Testing performed by liquid chromatography-tandem mass spectrometry. Therapeutic concentrations vary depending on type of transplanted organ and time elapsed since transplant. Typical trough concentrations range from 5-15 ng/mL. This test was developed and its performance characteristics determined by the [facility] consistent with CLIA requirements. This test has not been cleared or approved by the [place] Food and Drug administration. Current interpretive data last reviewed 2019. Blood 09/06/2024 9:48 AM CDT 09/06/2024 10:15 AM CDT iLly Rico MD LAB BLOOD ORDERABLES Final Result [facility] [place] [address] * (ABNORMAL) Comprehensive metabolic panel (09/06/2024 9:48 AM CDT) Sodium 139 135 - 145 mmol/L Potassium, pl 4.1 3.3 - 4.9 mmol/L [facility] Comment:Hemolyzed; Potassium value may be falsely elevated by as much as 0.3-0.5 mmol/L. Suggest redraw and reanalysis. Chloride 102 97 - 110 mmol/L [facility] CO2 26 22 - 32 mmol/L [facility] Anion gap 11 2 - 15 mmol/L [facility] BUN 24 6 - 25 mg/dL [facility] Creatinine 2.04(H) 0.60 - 1.10 mg/dL [facility] Glucose 167 70 - 199 mg/dL [facility] Comment: Interpretive Data Fasting glucose >/= 126 [...] 2022. Calcium 8.8 8.5 - 10.3 mg/dL [facility] Bilirubin, total 0.6 0.1 - 1.2 mg/dL [facility] Protein, pl 6.1(L) 6.5 - 8.5 g/dL [facility] Albumin 3.5 3.5 - 5.0 g/dL [facility] Alk phos 241(H) 40 - 130 Units/L [facility] ALT 17 7 - 45 Units/L [facility] AST 41 10 - 45 Units/L [facility] Comment:Hemolyzed; result ma y be falsely elevated Blood 09/06/2024 9:48 AM CDT 09/06/2024 10:15 AM CDT us Britta Zhang MD LAB BLOOD ORDERABLES Aniya l Result Performing Organization Address City/[facility]/ZIP Co de Phone Number [facility] [place] [address] * (ABNORMAL) eGFR (09/05/2024 10:47 AM CDT) eGFR 24(L) >=60 mL/min/1. 73 m2 Comment: Interpretive Data [...] interpretive data was last reviewed 2021. Blood 09/05/2024 10:4 7 AM CDT 09/05/2024 11:03 AM CDT Britta Zhang MD LAB BLOOD ORDERABLES Aniya l Result [facility] [place] [address] * Differential, auto (09/05/2024 10:47 AM CDT) Neutrophil abs 3.84 1.50 - 6.50 K/cumm Imm gran abs 0.03 0.00 - 0.10 K/cumm [facility] Lymphocyte abs 1.33 0.80 - 3.30 K/cumm [facility] Monocyte abs 0.30 0.20 - 0.80 K/cumm [facility] Eosinophil abs 0.15 0.00 - 0.50 K[facility] Basophil abs 0.01 0.00 - 0.10 K/cumm [facility] Neutrophil pct 67.8 % [facility] Comment: Interpretive Data Percent cell count reference ranges are not reported, since discordance with absolute values may lead to misinterpretation of CBC data. Current Interpretive Data was last revised on 2017. Imm gran pct 0.5 % [facility] Comment: Interpretive Data Percent cell count reference ranges are not reported, since discordance with absolute values may lead to misinterpretation of CBC data. Current Interpretive Data was last revised on 2017. Lymphocyte pct 23.5 % [facility] Comment: Interpretive Data Percent cell count reference ranges are not reported, since discordance with absolute values may lead to misinterpretation of CBC data. Current Interpretive Data was last revised on 2017. Monocyte pct 5.3 % [facility] Comment: Interpretive Data Percent cell count reference ranges are not reported, since discordance with absolute values may lead to misinterpretation of CBC data. Current Interpretive Data was last revised on 2017. Eosinophil pct 2.7 % [facility] Comment: Interpretive Data Percent cell count reference ranges are not reported, since discordance with absolute values may lead to misinterpretation of CBC data. Current Interpretive Data was last revised on 2017. Basophil pct 0.2 % [facility] Comment: Interpretive Data Percent cell count reference ranges are not reported, since discordance with absolute values may lead to misinterpretation of CBC data. Current Interpretive Data was last revised on 2017. Blood 09/05/2024 10:4 7 AM CDT 09/05/2024 11:03 AM CDT Britta Zhang MD LAB BLOOD ORDERABLES Aniya l Result Performing Organization Address [facility] Co de Phone Number [facility] Department [place] [address] * Tacrolimus level trough (09/05/2024 10:47 AM CDT) [facility] Tacrolimus trough 6.2 ng/mL Comment: Interpretive Data Testing performed by liquid chromatography-tandem mass spectrometry. Therapeutic concentrations vary depending on type of transplanted organ and time elapsed since transplant. Typical trough concentrations range from 5-15 ng/mL. This test was developed and its performance characteristics determined by the [facility] consistent with CLIA requirements. This test has not been cleared or approved by the [place] Food and Drug administration. Current interpretive data last reviewed 2019. Blood 09/05/2024 10:4 7 AM CDT 09/05/2024 11:04 AM CDT Narrative [facility] - 09/05/2024 1:14 PM CDT Draw exactly 12 HOURS after last dose of tacrolimus was given and just BEFORE giving next dose Britta Zhang MD LAB BLOOD ORDERABLES Aniya l Result Performing Organization Address [facility] Co de Phone Number [facility] Department [place] [address] * (ABNORMAL) CBC with auto differential (09/05/2024 10:47 AM CDT) [facility] WBC 5.66 3.80 - 9.90 K/cumm Hgb 11.1(L) 11.9 - 15.5 g/dL [facility] Hct 31.6(L) 35.6 - 45.5 % [facility] Plt 115(L) 150 - 400 K/cumm [facility] MPV 11.4 9.1 - 12.3 fL [facility] RBC 2.81(L) 3.90 - 5.20 M/cumm [facility] MCV 112.5(H) 81.3 - 96.4 fL [facility] MCH 39.5(H) 27.1 - 33.3 pg [facility] MCHC 35.1 32.3 - 35.7 g/dL [facility] RDW CV 14.2 11.1 - 14.9 % [facility] RDW SD 59.0(H) 35.7 - 48.1 fL [facility] NRBC abs 0.00 0.00 - 0.01 K/cumm [facility] Blood 09/05/2024 10:4 7 AM CDT 09/05/2024 11:03 AM CDT us Britta Zhang MD LAB BLOOD ORDERABLES Aniya l Result [facility] Department [place] [address] * (ABNORMAL) Comprehensive metabolic panel (09/05/2024 10:47 AM CDT) Sodium 143 135 - 145 mmol/L Potassium, pl 4.2 3.3 - 4.9 mmol/L [facility] Chloride 102 97 - 110 mmol/L [facility] CO2 28 22 - 32 mmol/L [facility] Anion gap 13 2 - 15 mmol/L [facility] BUN 28(H) 6 - 25 mg/dL [facility] Creatinine 2.49(H) 0.60 - 1.10 mg/dL [facility] Glucose 127 70 - 199 mg/dL [facility] Comment: Interpretive Data Fasting glucose >/= 126 [...] interpretive data was last revised 2022. Calcium 9.0 8.5 - 10.3 mg/dL [facility] Bilirubin, total 0.7 0.1 - 1.2 mg/dL [facility] Protein, pl 6.4(L) 6.5 - 8.5 g/dL [facility] Albumin 3.7 3.5 - 5.0 g/dL [facility] Alk phos 257(H) 40 - 130 Units/L [facility] ALT 18 7 - 45 Units/L [facility] AST 27 10 - 45 Units/L [facility] Blood 09/05/2024 10:4 7 AM CDT 09/05/2024 11:03 AM CDT us Britta Zhang MD LAB BLOOD ORDERABLES Aniya l Result [facility] [place] [address] * (ABNORMAL) eGFR (09/04/2024 5:03 AM CDT) eGFR 20(L) >=60 mL/min/1. 73 [...] interpretive data was last reviewed 2021. Blood 09/04/2024 5:03 AM CDT 09/04/2024 5:10 AM CDT us Britta Zhang MD LAB BLOOD ORDERABLES Aniya andrez Result [facility] [place] [address] * Differential, auto (09/04/2024 5:03 AM CDT) Pathologist [facility] Neutrophil abs 2.68 1.50 - 6.50 K/cumm Imm gran abs 0.01 0.00 - 0.10 K/cumm [facility] Lymphocyte abs 1.03 0.80 - 3.30 K/cumm [facility] Monocyte abs 0.23 0.20 - 0.80 K/cumm [facility] Eosinophil abs 0.09 0.00 - 0.50 K/cumm [facility] Basophil abs 0.00 0.00 - 0.10 K/cumm [facility] Neutrophil pct 66.4 % [facility] Comment: Interpretive Data Percent cell count reference ranges are not reported, since discordance with absolute values may lead to misinterpretation of CBC data. Current Interpretive Data was last revised on 2017. Imm gran pct 0.2 % [facility] Comment: Interpretive Data Percent cell count reference ranges are not reported, since discordance with absolute values may lead to misinterpretation of CBC data. Current Interpretive Data was last revised on 2017. Lymphocyte pct 25.5 % [facility] Comment: Interpretive Data Percent cell count reference ranges are not reported, since discordance with absolute values may lead to misinterpretation of CBC data. Current Interpretive Data was last revised on 2017. Monocyte pct 5.7 % [facility] Comment: Interpretive Data Percent cell count reference ranges are not reported, since discordance with absolute values may lead to misinterpretation of CBC data. Current Interpretive Data was last revised on 2017. Eosinophil pct 2.2 % [facility] Comment: Interpretive Data Percent cell count reference ranges are not reported, since discordance with absolute values may lead to misinterpretation of CBC data. Current Interpretive Data was last revised on 2017. Basophil pct 0.0 % [facility] Comment: Interpretive Data Percent cell count reference ranges are not reported, since discordance with absolute values may lead to misinterpretation of CBC data. Current Interpretive Data was last revised on 2017. Blood 09/04/2024 5:03 AM CDT 09/04/2024 5:10 AM CDT Britta Zhang MD LAB BLOOD ORDERABLES Aniya l Result Performing Organization Address City/[facility] Co de Phone Number [facility] [place] [address] * Tacrolimus level trough (09/04/2024 5:03 AM CDT) Pathologist [facility] Tacrolimus trough 10.9 ng/mL Comment: Interpretive Data Testing performed by liquid chromatography-tandem mass spectrometry. Therapeutic concentrations vary depending on type of transplanted organ and time elapsed since transplant. Typical trough concentrations range from 5-15 ng/mL. This test was developed and its performance characteristics determined by the [facility] consistent with CLIA requirements. This test has not been cleared or approved by the [place] Food and Drug administration. Current interpretive data last reviewed 2019. Blood 09/04/2024 5:03 AM CDT 09/04/2024 5:10 AM CDT Narrative [facility] - 09/04/2024 7:32 AM CDT Draw exactly 12 HOURS after last dose of tacrolimus was given and just BEFORE giving next dose Britta Zhang MD LAB BLOOD ORDERABLES Aniya l Result Performing Organization Address City/[facility] Co de Phone Number [facility] [place] [address] * (ABNORMAL) CBC with auto differential (09/04/2024 5:03 AM CDT) Pathologist [facility] WBC 4.04 3.80 - 9.90 K/cumm Hgb 11.8(L) 11.9 - 15.5 g/dL [facility] Hct 32.9(L) 35.6 - 45.5 % [facility] Plt 66(L) 150 - 400 K/cumm [facility] MPV 12.0 9.1 - 12.3 fL [facility] RBC 2.96(L) 3.90 - 5.20 M/cumm [facility] MCV 111.1(H) 81.3 - 96.4 fL [facility] MCH 39.9(H) 27.1 - 33.3 pg [facility] MCHC 35.9(H) 32.3 - 35.7 g/dL [facility] RDW CV 14.0 11.1 - 14.9 % [facility] RDW SD 56.5(H) 35.7 - 48.1 fL [facility] NRBC abs 0.00 0.00 - 0.01 K/cumm [facility] Blood 09/04/2024 5:03 AM CDT 09/04/2024 5:10 AM CDT us Britta Zhang MD LAB BLOOD ORDERABLES Aniya l Result [facility] [place] [address] * (ABNORMAL) Comprehensive metabolic panel (09/04/2024 5:03 AM CDT) Sodium 137 135 - 145 mmol/L Potassium, pl 4.2 3.3 - 4.9 mmol/L [facility] Chloride 100 97 - 110 mmol/L [facility] CO2 26 22 - 32 mmol/L [facility] Anion gap 11 2 - 15 mmol/L [facility] BUN 30(H) 6 - 25 mg/dL [facility] Creatinine 2.87(H) 0.60 - 1.10 mg/dL [facility] Glucose 153 70 - 199 mg/dL [facility] Comment: Interpretive Data Fasting glucose >/= 126 [...] 2022. Calcium 8.5 8.5 - 10.3 mg/dL [facility] Bilirubin, total 0.8 0.1 - 1.2 mg/dL [facility] Protein, pl 6.6 6.5 - 8.5 g/dL [facility] Albumin 3.5 3.5 - 5.0 g/dL [facility] Alk phos 240(H) 40 - 130 Units/L [facility] ALT 12 7 - 45 Units/L [facility] AST 31 10 - 45 Units/L [facility] Blood 09/04/2024 5:03 AM CDT 09/04/2024 5:10 AM CDT Britta Zhang MD LAB BLOOD ORDERABLES Aniya l Result [facility] Department of Laboratories [place], [place] [address] * (ABNORMAL) eGFR (09/03/2024 5:21 AM CDT) eGFR 20(L) >=60 mL/min/1. 73 [...] interpretive data was last reviewed 2021. Blood 09/03/2024 5:21 AM CDT 09/03/2024 5:31 AM CDT us Britta Zhang MD LAB BLOOD ORDERABLES Aniya andrez Result [facility] [place] [address] * Differential, auto (09/03/2024 5:21 AM CDT) Neutrophil abs 3.79 1.50 - 6.50 K/cumm Imm gran abs 0.03 0.00 - 0.10 K/cumm [facility] Lymphocyte abs 0.84 0.80 - 3.30 K/cumm [facility] Monocyte abs 0.25 0.20 - 0.80 K/cumm [facility] Eosinophil abs 0.05 0.00 - 0.50 K/cumm [facility] Basophil abs 0.00 0.00 - 0.10 K/cumm [facility] Neutrophil pct 76.5 % [facility] Comment: Interpretive Data Percent cell count reference ranges are not reported, since discordance with absolute values may lead to misinterpretation of CBC data. Current Interpretive Data was last revised on 2017. Imm gran pct 0.6 % [facility] Comment: Interpretive Data Percent cell count reference ranges are not reported, since discordance with absolute values may lead to misinterpretation of CBC data. Current Interpretive Data was last revised on 2017. Lymphocyte pct 16.9 % [facility] Comment: Interpretive Data Percent cell count reference ranges are not reported, since discordance with absolute values may lead to misinterpretation of CBC data. Current Interpretive Data was last revised on 2017. Monocyte pct 5.0 % [facility] Comment: Interpretive Data Percent cell count reference ranges are not reported, since discordance with absolute values may lead to misinterpretation of CBC data. Current Interpretive Data was last revised on 2017. Eosinophil pct 1.0 % [facility] Comment: Interpretive Data Percent cell count reference ranges are not reported, since discordance with absolute values may lead to misinterpretation of CBC data. Current Interpretive Data was last revised on 2017. Basophil pct 0.0 % [facility] Comment: Interpretive Data Percent cell count reference ranges are not reported, since discordance with absolute values may lead to misinterpretation of CBC data. Current Interpretive Data was last revised on 2017. Blood 09/03/2024 5:21 AM CDT 09/03/2024 5:31 AM CDT Britta Zhang MD LAB BLOOD ORDERABLES Aniya l Result Performing Organization Address [facility] de Phone Number [facility] [place] [address] * Tacrolimus level trough (09/03/2024 5:21 AM CDT) [facility] Tacrolimus trough 17.8 ng/mL Comment: Interpretive Data Testing performed by liquid chromatography-tandem mass spectrometry. Therapeutic concentrations vary depending on type of transplanted organ and time elapsed since transplant. Typical trough concentrations range from 5-15 ng/mL. This test was developed and its performance characteristics determined by the [facility] consistent with CLIA requirements. This test has not been cleared or approved by the [place] Food and Drug administration. Current interpretive data last reviewed 2019. Blood 09/03/2024 5:21 AM CDT 09/03/2024 5:31 AM CDT Narrative [facility] - 09/03/2024 9:19 AM CDT Draw exactly 12 HOURS after last dose of tacrolimus was given and just BEFORE giving next dose Britta Zhang MD LAB BLOOD ORDERABLES Aniya l Result Performing Organization Address [facility] Co de Phone Number [facility] [place] [address] * (ABNORMAL) CBC with auto differential (09/03/2024 5:21 AM CDT) [facility] WBC 4.96 3.80 - 9.90 K/cumm Hgb 11.3(L) 11.9 - 15.5 g/dL [facility] Hct 30.7(L) 35.6 - 45.5 % [facility] Plt 83(L) 150 - 400 K/cumm [facility] MPV 11.0 9.1 - 12.3 fL [facility] RBC 2.84(L) 3.90 - 5.20 M/cumm [facility] MCV 108.1(H) 81.3 - 96.4 fL [facility] MCH 39.8(H) 27.1 - 33.3 pg [facility] MCHC 36.8(H) 32.3 - 35.7 g/dL [facility] RDW CV 13.9 11.1 - 14.9 % [facility] RDW SD 54.4(H) 35.7 - 48.1 fL [facility] NRBC abs 0.00 0.00 - 0.01 K/cumm [facility] Blood 09/03/2024 5:21 AM CDT 09/03/2024 5:31 AM CDT us Britta Zhang MD LAB BLOOD ORDERABLES Aniya maguire Result [facility] [place] [address] * (ABNORMAL) Comprehensive metabolic panel (09/03/2024 5:21 AM CDT) [facility] Sodium 138 135 - 145 mmol/L Potassium, pl 4.7 3.3 - 4.9 mmol/L [facility] Chloride 101 97 - 110 mmol/L [facility] CO2 29 22 - 32 mmol/L [facility] Anion gap 8 2 - 15 mmol/L [facility] BUN 29(H) 6 - 25 mg/dL [facility] Creatinine 2.92(H) 0.60 - 1.10 mg/dL [facility] Glucose 113 70 - 199 mg/dL [facility] Comment: Interpretive Data Fasting glucose >/= 126 [...] 2022. Calcium 9.2 8.5 - 10.3 mg/dL [facility] Bilirubin, total 1.1 0.1 - 1.2 mg/dL [facility] Protein, pl 6.2(L) 6.5 - 8.5 g/dL [facility] Albumin 3.4(L) 3.5 - 5.0 g/dL [facility] Alk phos 233(H) 40 - 130 Units/L [facility] ALT 13 7 - 45 Units/L [facility] AST 22 10 - 45 Units/L [facility] Blood 09/03/2024 5:21 AM CDT 09/03/2024 5:31 AM CDT Britta Zhang MD LAB BLOOD ORDERABLES Aniya l Result [facility] Department [place] [address] * BK virus PCR quantitative Blood (09/02/2024 12:21 PM CDT) [facility] BKV DNA result, pl Not Detected [facility] Comment: The quantifiable range of this assay is 21.5 IU/mL to 100,000,000 IU/mL (1.33 log IU/mL to 8.00 log IU/mL). Testing was performed by the JOHNNY 6800 BKV Quantatitive Test version 2.0 ([employer] Testing performed at [facility] Current Interpretive Data was last revised on 2021. Blood 09/02/2024 12:2 1 PM CDT 09/02/2024 12:52 PM CDT Britta Zhang MD LAB MICROBIOLOGY - GENERA L ORDERABLES Final Result [facility] [place] [address] [facility] * HLA Donor Specific Antibody Report (09/02/2024 12:21 PM CDT) Britta Zhang MD LAB BLOOD ORDERABLES Aniya l Result * HLA Antibody Screen - DSA (Class I and Class II) (09/02/2024 12:21 PM CDT) Blood 09/02/2024 12:2 1 PM CDT 09/03/2024 11:27 AM CDT Narrative [facility] - 09/03/2024 11:27 AM CDT Britta Zhang MD LAB BLOOD ORDERABLES Aniya l Result Performing Organization Address [facility] Co de Phone Number [facility] * Collection Task for HLA Antibody Screen (09/02/2024 12:21 PM CDT) HLA Antibody Screen By Single Antigen Received Blood 09/02/2024 12:2 1 PM CDT 09/03/2024 10:59 AM CDT Britta Zhang MD LAB BLOOD ORDERABLES Aniya l Result [facility] [place] [address] * Cytomegalovirus (CMV) DNA PCR, quantitative Blood (09/02/2024 12:21 PM CDT) CMV DNA Not Detected [facility] Comment: Interpretive Data: The quantifiable range of this assay is 34 IUnits/mL to 10,000,000 IUnits/mL (1.53 log IUnits/mL to 7.0 log IUnits/mL). Testing was performed by the JOHNNY 6800 CMV Test ([employer] Testing performed at [facility]. Current interpretive data was last revised on 2020. Blood 09/02/2024 12:2 1 PM CDT 09/02/2024 12:52 PM CDT us Britta Zhang MD LAB MICROBIOLOGY - GENERA L ORDERABLES Final Result Performing Organization Address City/State/[facility] Co de Phone Number [facility] [place] [address] [facility] * (ABNORMAL) eGFR (09/02/2024 12:21 PM CDT) eGFR 20(L) >=60 mL/min/1. 73 m2 [...] interpretive data was last reviewed 2021. Blood 09/02/2024 12:2 1 PM CDT 09/02/2024 12:42 PM CDT us Britta Zhang MD LAB BLOOD ORDERABLES Aniya l Result [facility] [place] [address] * Blood culture Blood (09/02/2024 12:21 PM CDT) Report Final Report: No growth Blood 09/02/2024 12:2 1 PM CDT 09/02/2024 1:40 PM CDT Diogenes [facility] - 09/06/2024 4:00 PM CDT From a different site than #1. Collection->Peripheral 1. Blood cultures are incubated for 4 days on a continuously monitored blood culture system. The first report of a negative culture is issued within 24 hours of receipt of the specimen in the laboratory. 2. Positive culture results are reported as soon as they are detected. 3. The most important factor for detection of microbes in the setting of bloodstream infection is the volume of blood submitted for culture. Failure to collect an optimal blood volume can result in false negative blood cultures. 4. For pediatric patients, the recommended blood volume to collect follows a weight based strategy. See the electronic test catalog for collection instructions. 5. For positive blood cultures, a rapid molecular test may be performed for organism identification using the johnny ePlex blood culture identification panel for gram positive (BCID-GP) and gram negative (BCID-GN) organisms. This nucleic acid amplification test detects microbial DNA in positive blood culture broth. This assay has been cleared by the [place] Food and Drug Administration and its performance characteristics have been verified by the [facility]. For questions about this culture, contact the Microbiology Laboratory at [phone]. Interpretive data was last revised on 24. us Britta Zhang MD LAB MICROBIOLOGY - GENERA L ORDERABLES Final Result Performing Organization Address City/[facility]/ZIP Co de Phone Number [facility] [place] [address] * Blood culture Blood (09/02/2024 12:21 PM CDT) Report Final Report: No growth Blood 09/02/2024 12:2 1 PM CDT 09/02/2024 1:40 PM CDT Narrative [facility] - 09/06/2024 4:00 PM CDT Collection->Peripheral 1. Blood cultures are incubated for 4 days on a continuously monitored blood culture system. The first report of a negative culture is issued within 24 hours of receipt of the specimen in the laboratory. 2. Positive culture results are reported as soon as they are detected. 3. The most important factor for detection of microbes in the setting of bloodstream infection is the volume of blood submitted for culture. Failure to collect an optimal blood volume can result in false negative blood cultures. 4. For pediatric patients, the recommended blood volume to collect follows a weight based strategy. See the electronic test catalog for collection instructions. 5. For positive blood cultures, a rapid molecular test may be performed for organism identification using the johnny ePlex blood culture identification panel for gram positive (BCID-GP) and gram negative (BCID-GN) organisms. This nucleic acid amplification test detects microbial DNA in positive blood culture broth. This assay has been cleared by the [place] Food and Drug Administration and its performance characteristics have been verified by the [facility]. For questions about this culture, contact the Microbiology Laboratory at [phone]. Interpretive data was last revised on 24. us Britta Zhang MD LAB MICROBIOLOGY - GENERA L ORDERABLES Final Result [facility] [place] [address] * (ABNORMAL) Renal function panel (09/02/2024 12:21 PM CDT) Sodium 137 135 - 145 mmol/L Potassium, pl 3.9 3.3 - 4.9 mmol/L [facility] Chloride 97 97 - 110 mmol/L [facility] CO2 31 22 - 32 mmol/L [facility] Anion gap 9 2 - 15 mmol/L [facility] BUN 28(H) 6 - 25 mg/dL [facility] Creatinine 2.89(H) 0.60 - 1.10 mg/dL [facility] Glucose 162 70 - 199 mg/dL [facility] Comment: Interpretive Data Fasting glucose >/= 126 [...] interpretive data was last revised 2022. Calcium 9.7 8.5 - 10.3 mg/dL [facility] Phosphorus, pl 4.1 2.3 - 4.5 mg/dL [facility] Albumin 3.5 3.5 - 5.0 g/dL [facility] Blood 09/02/2024 12:2 1 PM CDT 09/02/2024 12:42 PM CDT Britta Zhang MD LAB BLOOD ORDERABLES Aniya l Result [facility] [place] [address] * (ABNORMAL) eGFR (09/02/2024 5:16 AM CDT) eGFR 19(L) >=60 mL/min/1. 73 m2 Comment: Interpretive Data [...] interpretive data was last reviewed 2021. Blood 09/02/2024 5:16 AM CDT 09/02/2024 5:32 AM CDT us Bailee Valiente MD LAB BLOOD ORDERABLES Final Result [facility] [place] [address] * Differential, auto (09/02/2024 5:16 AM CDT) Neutrophil abs 3.97 1.50 - 6.50 K/cumm Imm gran abs 0.02 0.00 - 0.10 K/cumm [facility] Lymphocyte abs 1.10 0.80 - 3.30 K/cumm [facility] Monocyte abs 0.24 0.20 - 0.80 K/cumm [facility] Eosinophil abs 0.11 0.00 - 0.50 K/cumm [facility] Basophil abs 0.01 0.00 - 0.10 K/cumm [facility] Neutrophil pct 72.8 % [facility] Comment: Interpretive Data Percent cell count reference ranges are not reported, since discordance with absolute values may lead to misinterpretation of CBC data. Current Interpretive Data was last revised on 2017. Imm gran pct 0.4 % [facility] Comment: Interpretive Data Percent cell count reference ranges are not reported, since discordance with absolute values may lead to misinterpretation of CBC data. Current Interpretive Data was last revised on 2017. Lymphocyte pct 20.2 % [facility] Comment: Interpretive Data Percent cell count reference ranges are not reported, since discordance with absolute values may lead to misinterpretation of CBC data. Current Interpretive Data was last revised on 2017. Monocyte pct 4.4 % [facility] Comment: Interpretive Data Percent cell count reference ranges are not reported, since discordance with absolute values may lead to misinterpretation of CBC data. Current Interpretive Data was last revised on 2017. Eosinophil pct 2.0 % [facility] Comment: Interpretive Data Percent cell count reference ranges are not reported, since discordance with absolute values may lead to misinterpretation of CBC data. Current Interpretive Data was last revised on 2017. Basophil pct 0.2 % [facility] Comment: Interpretive Data Percent cell count reference ranges are not reported, since discordance with absolute values may lead to misinterpretation of CBC data. Current Interpretive Data was last revised on 2017. Blood 09/02/2024 5:16 AM CDT 09/02/2024 5:32 AM CDT Bailee Valiente MD LAB BLOOD ORDERABLES Final Result Performing Organization Address [facility] de Phone Number [facility] [place] [address] * Tacrolimus level trough (09/02/2024 5:16 AM CDT) Pathologist [facility] Tacrolimus trough 17.0 ng/mL Comment: Interpretive Data Testing performed by liquid chromatography-tandem mass spectrometry. Therapeutic concentrations vary depending on type of transplanted organ and time elapsed since transplant. Typical trough concentrations range from 5-15 ng/mL. This test was developed and its performance characteristics determined by the [facility] consistent with CLIA requirements. This test has not been cleared or approved by the [place] Food and Drug administration. Current interpretive data last reviewed 2019. Blood 09/02/2024 5:16 AM CDT 09/02/2024 5:32 AM CDT us Britta Zhang MD LAB BLOOD ORDERABLES Aniya l Result Performing Organization Address [facility] Co de Phone Number [facility] [place] [address] * (ABNORMAL) CBC with auto differential (09/02/2024 5:16 AM CDT) Pathologist [facility] WBC 5.45 3.80 - 9.90 K/cumm Hgb 11.7(L) 11.9 - 15.5 g/dL [facility] Hct 32.3(L) 35.6 - 45.5 % [facility] Plt 98(L) 150 - 400 K/cumm [facility] MPV 11.4 9.1 - 12.3 fL [facility] RBC 2.95(L) 3.90 - 5.20 M/cumm [facility] MCV 109.5(H) 81.3 - 96.4 fL [facility] MCH 39.7(H) 27.1 - 33.3 pg [facility] MCHC 36.2(H) 32.3 - 35.7 g/dL [facility] RDW CV 13.9 11.1 - 14.9 % [facility] RDW SD 56.6(H) 35.7 - 48.1 fL [facility] NRBC abs 0.00 0.00 - 0.01 K/cumm [facility] Blood 09/02/2024 5:16 AM CDT 09/02/2024 5:32 AM CDT us Bailee Valiente MD LAB BLOOD ORDERABLES Final Result [facility] [place] [address] * (ABNORMAL) Comprehensive metabolic panel (09/02/2024 5:16 AM CDT) Sodium 137 135 - 145 mmol/L Potassium, pl 4.1 3.3 - 4.9 mmol/L [facility] Chloride 98 97 - 110 mmol/L [facility] CO2 32 22 - 32 mmol/L [facility] Anion gap 7 2 - 15 mmol/L [facility] BUN 29(H) 6 - 25 mg/dL [facility] Creatinine 3.05(H) 0.60 - 1.10 mg/dL [facility] Glucose 185 70 - 199 mg/dL [facility] Comment: Interpretive Data Fasting glucose >/= 126 [...] interpretive data was last revised 2022. Calcium 9.0 8.5 - 10.3 mg/dL [facility] Bilirubin, total 1.0 0.1 - 1.2 mg/dL [facility] Protein, pl 6.3(L) 6.5 - 8.5 g/dL [facility] Albumin 3.8 3.5 - 5.0 g/dL [facility] Alk phos 223(H) 40 - 130 Units/L [facility] ALT 11 7 - 45 Units/L [facility] AST 24 10 - 45 Units/L [facility] Blood 09/02/2024 5:16 AM CDT 09/02/2024 5:32 AM CDT us Bailee Valiente MD LAB BLOOD ORDERABLES Final Result [facility] [place] [address] * Troponin I high-sensitivity 2-hour (09/01/2024 2:58 AM CDT) Trop I hs 5 <=17 ng/L Comment: Interpretive Data For further hscTnI resources including the diagnostic algorithm and an aid in interpretation, copy and paste this link: [email or web address].testcatalog.org/[email or web address] Current Interpretive Data last revised 2019. Trop I hs delta 0 ng/L [facility] Trop I hs interp Insignificant [facility] Blood 09/01/2024 2:58 AM CDT 09/01/2024 3:13 AM CDT us Diana Cassidy MD LAB BLOOD ORDERABLES Fi nal Result [facility] [place] [address] * ECG 12-LEAD (09/01/2024 2:53 AM CDT) Narrative [facility] - 09/01/2024 2:53 AM CDT Elisha Avila MD 09/01/2024 3:24 AM ECG 12 lead Date/Time: 09/01/2024 2:53 AM Performed by: Elisha Avila MD Authorized by: Diana Cassidy MD us Diana Cassidy MD ECG ORDERABLES Final R esult Performing Organization Address [facility] Co de Phone Number [facility] * XR Chest PA Lateral 2 Views (09/01/2024 2:23 AM CDT) Anatomical Region Laterality Modality Body, Chest N/A Computed Radiogr aphy 09/01/2024 3:20 AM CDT Impressions 09/01/2024 9:02 AM CDT The current study is compared with the prior radiograph dated 04/16/2020 The lungs are clear. No pneumothorax or pleural effusion. The heart size and mediastinal contours are normal. Dictated by: Jenny Mirza MD The radiology attending physician has personally reviewed this study, and had reviewed and/or edited this written report and agrees with it. Electronically signed by: Jaime Sim M.D. Narrative 09/01/2024 9:02 AM CDT EXAMINATION: 2 view chest radiograph Procedure Note Jaime Sim MD - 09/01/2024 EXAMINATION: 2 view chest radiograph IMPRESSION: The current study is compared with the prior radiograph dated 04/16/2020 The lungs are clear. No pneumothorax or pleural effusion. The heart size and mediastinal contours are normal. Dictated by: Jenny Mirza MD The radiology attending physician has personally reviewed this study, and had reviewed and/or edited this written report and agrees with it. Electronically signed by: Jaime Sim M.D. Diana Cassidy MD IMG XR PROCEDURES Final Result * (ABNORMAL) Blood culture Blood (09/01/2024 2:18 AM CDT) Direct Specimen Exam Molecular Analysis: Staphylococcus epidermidis (methicillin-resis tant) detected by johnny ePlex BCID-GP panel. Single positive culture may represent contamination. This test does not exclude the possibility of a mixed bacterial infection. Notification of: Staphylococcus epidermidis (methicillin-resis tant) called to and read back by: Flower Moser MD ([phone]) on 09/02/2024 03:01:57 by: Radu Helm MT Direct Specimen Exam Stain: Gram Positive Cocci in clusters Time to culture positivity (anaerobic media): 21.4 hours Notification of: Gram Positive Cocci in clusters called to and read back by: Flower Moser MD ([phone]) on 09/02/2024 01:01:22 by: Radu Helm [place] [facility] Report Final Report: Staphylococcus epidermidis Single blood culture positive for this microorganism. Isolate is a possible contaminant. If a similar isolate is recovered from a second blood culture collected within 3 days of this culture, both will be evaluated and, if determined to be the same species, antimicrobial susceptibility testing will be performed. (.) [facility] Organism STAPHYLOCOCCUS EPIDERMIDIS [facility] Blood 09/01/2024 2:18 AM CDT 09/01/2024 2:43 AM CDT Narrative [facility] - 09/06/2024 12:48 PM CDT From a different site than #1. Collection->Peripheral 1. Blood cultures are incubated for 4 days on a continuously monitored blood culture system. The first report of a negative culture is issued within 24 hours of receipt of the specimen in the laboratory. 2. Positive culture results are reported as soon as they are detected. 3. The most important factor for detection of microbes in the setting of bloodstream infection is the volume of blood submitted for culture. Failure to collect an optimal blood volume can result in false negative blood cultures. 4. For pediatric patients, the recommended blood volume to collect follows a weight based strategy. See the electronic test catalog for collection instructions. 5. For positive blood cultures, a rapid molecular test may be performed for organism identification using the johnny ePlex blood culture identification panel for gram positive (BCID-GP) and gram negative (BCID-GN) organisms. This nucleic acid amplification test detects microbial DNA in positive blood culture broth. This assay has been cleared by the [place] Food and Drug Administration and its performance characteristics have been verified by the [facility] Microbiology Laboratory. For questions about this culture, contact the Microbiology Laboratory at [phone]. Interpretive data was last revised on 24. us Diana Cassidy MD LAB MICROBIOLOGY - GENE RAL ORDERABLES Final Result ALEK RDZ [facility] [place] [address] * US Renal Transplant W Dopplers (09/01/2024 1:35 AM CDT) Anatomical Region Laterality Modality Kidney N/A Ultrasound 09/01/2024 2:00 AM CDT Impressions 09/01/2024 7:32 AM CDT 1. No Doppler evidence of transplant renal artery stenosis. 2. Normal transplant kidney morphology without hydronephrosis. Dictated by: Jenny Mirza MD The radiology attending physician has personally reviewed this study, and had reviewed and/or edited this written report and agrees with it. 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 COMPARISON: 05/29/2024 FINDINGS: The right iliac fossa transplant kidney measures 9.7 cm in length. Echogenicity is normal. There is no hydronephrosis. There are no renal calculi visualized. No perinephric fluid collection is seen. Bladder: The urinary bladder is decompressed Color Doppler and spectral analysis were used to evaluate the renal vasculature. Resistive indices in the transplant segmental arteries range from 0.64 to 0.7, and are normal. No focal flow abnormalities were seen in the transplant renal artery on color Doppler. The peak systolic velocities at the origin, mid aspect, and hilum of the transplant renal artery are 85 cm/sec, 39 cm/sec, and 47 cm/sec, respectively. The proximal external iliac artery peak systolic velocity is 193 cm/sec. The visualized portions of the transplant renal vein are patent. There is no thrombosis. Procedure Note Soto Mena MD PhD - 09/01/2024 EXAMINATION: RENAL TRANSPLANT ULTRASOUND WITH DOPPLER HISTORY: Right lower quadrant renal transplant in 2020 with right lower quadrant pain. COMPARISON: 05/29/2024 FINDINGS: The right iliac fossa transplant kidney measures 9.7 cm in length. Echogenicity is normal. There is no hydronephrosis. There are no renal calculi visualized. No perinephric fluid collection is seen. Bladder: The urinary bladder is decompressed Color Doppler and spectral analysis were used to evaluate the renal vasculature. Resistive indices in the transplant segmental arteries range from 0.64 to 0.7, and are normal. No focal flow abnormalities were seen in the transplant renal artery on color Doppler. The peak systolic velocities at the origin, mid aspect, and hilum of the transplant renal artery are 85 cm/sec, 39 cm/sec, and 47 cm/sec, respectively. The proximal external iliac artery peak systolic velocity is 193 cm/sec. The visualized portions of the transplant renal vein are patent. There is no thrombosis. IMPRESSION: 1. No Doppler evidence of transplant renal artery stenosis. 2. Normal transplant kidney morphology without hydronephrosis. Dictated by: Jenny Mirza MD The radiology attending physician has personally reviewed this study, and had reviewed and/or edited this written report and agrees with it. Electronically signed by: Soto Mena M.D., Ph.D Diana Cassidy MD [facility] US PROCEDURES Final Result * (ABNORMAL) Respiratory pathogen panel Nasopharyngeal (09/01/2024 12:58 AM CDT) Influenza A RNA Not Detected Not Detected Influenza B RNA Not Detected Not Detected [facility] RSV RNA Not Detected Not Detected [facility] COVID-19 RNA Not Detected Not Detected [facility] Coronavirus 229E RNA Not Detected Not Detected [facility] Coronavirus HKU1 RNA Not Detected Not Detected [facility] Coronavirus NL63 RNA Not Detected Not Detected [facility] Coronavirus OC43 RNA Not Detected Not Detected [facility] Adenovirus DNA Not Detected Not Detected [facility] Metapneumovirus RNA Not Detected Not Detected [facility] Rhinovirus/Enterov irus RNA Detected(A) Not Detected [facility] Parainfluenza 1 RNA Not Detected Not Detected [facility] Parainfluenza 2 RNA Not Detected Not Detected [facility] Parainfluenza 3 RNA Not Detected Not Detected [facility] Parainfluenza 4 RNA Not Detected Not Detected [facility] B. pertussis DNA Not Detected Not Detected [facility] B. parapertussis DNA Not Detected Not Detected [facility] C. pneumoniae DNA Not Detected Not Detected [facility] M. pneumoniae DNA Not Detected Not Detected [facility] Nasopharyngeal 09/01/2024 12 :58 AM CDT 09/01/2024 2:52 AM CDT Narrative [facility] - 09/01/2024 3:48 AM CDT Is the Patient experiencing symptoms consistent with COVID?->Yes Surveillance testing for transplant patient?->No Interpretive Data The SentreHEART FilmArray Respiratory Panel (RP2.1) assay is a [...] assay has FDA clearance for testing of FISH TENDER swabs. The performance of additional specimen types has been assessed by the performing laboratory. The performance characteristics of this assay have been determined by [facility] Molecular Infectious Disease Laboratory. Current interpretive data was last revised on 21. Diana Cassidy MD LAB MICROBIOLOGY - GENE RAL ORDERABLES Final Result [facility] [place] [address] * Troponin I high-sensitivity series (baseline, 2hr, 4hr, 6hr) (09/01/2024 12:57 AM CDT) Trop I hs 5 <=17 ng/L Comment: Interpretive Data For further hscTnI resources including the diagnostic algorithm and an aid in interpretation, copy and paste this link: https://bjhlab.testcatalog.org/show/[email or web address] Current Interpretive Data last revised 2019. Blood 09/01/2024 12:5 7 AM CDT 09/01/2024 1:20 AM CDT Diana Cassidy MD LAB BLOOD ORDERABLES Fi nal Result ALEK RAIN [facility] [place] [address] * Sepsis Lactate w/ Reflex (09/01/2024 12:57 AM CDT) Sepsis Lactate 1.8 0.7 - 2.0 mmol/L Blood 09/01/2024 12:5 7 AM CDT 09/01/2024 1:14 AM CDT Diana Cassidy MD LAB BLOOD ORDERABLES Fi nal Result Performing Organization Address City/State/[facility] Co de Phone Number [facility] [place] [address] * (ABNORMAL) eGFR (09/01/2024 12:57 AM CDT) Pathologist [facility] eGFR 26(L) >=60 mL/min/1. 73 m2 Comment: Interpretive Data [...] interpretive data was last reviewed 2021. Blood 09/01/2024 12:5 7 AM CDT 09/01/2024 1:20 AM CDT Diana Cassidy MD LAB BLOOD ORDERABLES Fi nal Result ALEK RAIN [facility] [place] [address] * Differential, auto (09/01/2024 12:57 AM CDT) Neutrophil abs 4.42 1.50 - 6.50 K/cumm Imm gran abs 0.03 0.00 - 0.10 K/cumm [facility] Lymphocyte abs 1.17 0.80 - 3.30 K/cumm [facility] Monocyte abs 0.38 0.20 - 0.80 K/cumm [facility] Eosinophil abs 0.10 0.00 - 0.50 K/cumm [facility] Basophil abs 0.02 0.00 - 0.10 K/cumm [facility] Neutrophil pct 72.3 % [facility] Comment: Interpretive Data Percent cell count reference ranges are not reported, since discordance with absolute values may lead to misinterpretation of CBC data. Current Interpretive Data was last revised on 2017. Imm gran pct 0.5 % [facility] Comment: Interpretive Data Percent cell count reference ranges are not reported, since discordance with absolute values may lead to misinterpretation of CBC data. Current Interpretive Data was last revised on 2017. Lymphocyte pct 19.1 % [facility] Comment: Interpretive Data Percent cell count reference ranges are not reported, since discordance with absolute values may lead to misinterpretation of CBC data. Current Interpretive Data was last revised on 2017. Monocyte pct 6.2 % [facility] Comment: Interpretive Data Percent cell count reference ranges are not reported, since discordance with absolute values may lead to misinterpretation of CBC data. Current Interpretive Data was last revised on 2017. Eosinophil pct 1.6 % [facility] Comment: Interpretive Data Percent cell count reference ranges are not reported, since discordance with absolute values may lead to misinterpretation of CBC data. Current Interpretive Data was last revised on 2017. Basophil pct 0.3 % [facility] Comment: Interpretive Data Percent cell count reference ranges are not reported, since discordance with absolute values may lead to misinterpretation of CBC data. Current Interpretive Data was last revised on 2017. Blood 09/01/2024 12:5 7 AM CDT 09/01/2024 1:20 AM CDT Diana Cassidy MD LAB BLOOD ORDERABLES Fi nal Result Performing Organization Address City/[facility]/ZIP Co de Phone Number [facility] [place] [address] * (ABNORMAL) Urinalysis reflex to microscopic and culture Urine, bladder (09/01/2024 12:57 AM CDT) Color, ur Yellow Yellow Clarity, ur Clear Clear [facility] Specific gravity, ur 1.020 1.003 - 1.030 [facility] pH, urine 5.5 [facility] Comment: Interpretive Data U rine pH is affected by diet, medications, systemic acid-base disturbances, and renal tubular function. pH may affect urinary stone formation. For example, urine pH below 6.0 may help reduce the tendency for calcium phosphate stones and pH greater than 6.0 may reduce the tendency for uric acid stone formation. Source: [facility] Current Interpretive Data was last revised on 2017 Protein, ur ql Trace Negative [facility] Glucose, ur ql Negative Negative [facility] Ketones, ur Trace Negative [facility] Bilirubin, ur Negative Negative [facility] Blood, ur Negative Negative [facility] Urobilinogen, ur 2.0(A) <2.0 mg/dL [facility] Nitrite, ur Negative Negative [facility] Leukocyte esterase, ur Negative Negative [facility] UA reflex comment Reflex conditions for microscopic UA and culture not met. [facility] Urine, bladder 09/01/2024 12 :57 AM CDT 09/01/2024 1:14 AM CDT Diana Cassidy MD LAB MICROBIOLOGY - GENE RAL ORDERABLES Final Result Performing Organization Address [facility]/ZIP Co de Phone Number [facility] Department [place] [address] * (ABNORMAL) CBC with auto differential (09/01/2024 12:57 AM CDT) WBC 6.12 3.80 - 9.90 K/cumm Hgb 12.7 11.9 - 15.5 g/dL [facility] Hct 35.2(L) 35.6 - 45.5 % [facility] Plt 115(L) 150 - 400 K/cumm [facility] MPV 11.0 9.1 - 12.3 fL [facility] RBC 3.20(L) 3.90 - 5.20 M/cumm [facility] MCV 110.0(H) 81.3 - 96.4 fL [facility] MCH 39.7(H) 27.1 - 33.3 pg [facility] MCHC 36.1(H) 32.3 - 35.7 g/dL [facility] RDW CV 14.2 11.1 - 14.9 % [facility] RDW SD 57.3(H) 35.7 - 48.1 fL [facility] NRBC abs 0.00 0.00 - 0.01 K/cumm [facility] Blood 09/01/2024 12:5 7 AM CDT 09/01/2024 1:20 AM CDT Diana Cassidy MD LAB BLOOD ORDERABLES nal Result [facility] [place] [address] * Tacrolimus level random (09/01/2024 12:57 AM CDT) Tacrolimus random 23.8 ng/mL Comment: Interpretive Data Testing performed by liquid chromatography-tandem mass spectrometry. Therapeutic concentrations vary depending on type of transplanted organ and time elapsed since transplant. Typical trough concentrations range from 5-15 ng/mL. This test was developed and its performance characteristics determined by the [facility] consistent with CLIA requirements. This test has not been cleared or approved by the [place] Food and Drug administration. Current interpretive data last reviewed 2019. Blood 09/01/2024 12:5 7 AM CDT 09/01/2024 1:20 AM CDT Diana Cassidy MD LAB BLOOD ORDERABLES Fi nal Result [facility] [place] [address] * Blood culture Blood (09/01/2024 12:57 AM CDT) Report Final Report: No growth Blood 09/01/2024 12:5 7 AM CDT 09/01/2024 1:35 AM CDT Narrative [facility] - 09/05/2024 7:00 AM CDT Collection->Peripheral 1. Blood cultures are incubated for 4 days on a continuously monitored blood culture system. The first report of a negative culture is issued within 24 hours of receipt of the specimen in the laboratory. 2. Positive culture results are reported as soon as they are detected. 3. The most important factor for detection of microbes in the setting of bloodstream infection is the volume of blood submitted for culture. Failure to collect an optimal blood volume can result in false negative blood cultures. 4. For pediatric patients, the recommended blood volume to collect follows a weight based strategy. See the electronic test catalog for collection instructions. 5. For positive blood cultures, a rapid molecular test may be performed for organism identification using the johnny ePlex blood culture identification panel for gram positive (BCID-GP) and gram negative (BCID-GN) organisms. This nucleic acid amplification test detects microbial DNA in positive blood culture broth. This assay has been cleared by the [place] Food and Drug Administration and its performance characteristics have been verified by the [facility]biology Laboratory. For questions about this culture, contact the Microbiology Laboratory at [phone]. Interpretive data was last revised on 24. Diana Cassidy MD LAB MICROBIOLOGY - GENE RAL ORDERABLES Final Result Performing Organization Address [facility]/ZIP Co de Phone Number [facility] [place] [address] * Phosphorus (09/01/2024 12:57 AM CDT) Phosphorus, pl 2.9 2.3 - 4.5 mg/dL Blood 09/01/2024 12:5 7 AM CDT 09/01/2024 1:20 AM CDT Diana Cassidy MD LAB BLOOD ORDERABLES Fi nal Result Performing Organization Address City/[facility] Co de Phone Number [facility] [place] [address] * Magnesium (09/01/2024 12:57 AM CDT) [facility] Magnesium 1.5 1.4 - 2.5 mg/dL Blood 09/01/2024 12:5 7 AM CDT 09/01/2024 1:20 AM CDT Diana Cassidy MD LAB BLOOD ORDERABLES Fi nal Result Performing Organization Address [facility] de Phone Number [facility] [place] [address] * Lipase (09/01/2024 12:57 AM CDT) [facility] Lipase 19 10 - 99 Units/L Blood 09/01/2024 12:5 7 AM CDT 09/01/2024 1:20 AM CDT Diana Cassidy MD LAB BLOOD ORDERABLES Fi nal Result Performing Organization Address City/[facility] de Phone Number [facility] [place] [address] * (ABNORMAL) Comprehensive metabolic panel (09/01/2024 12:57 AM CDT) Pathologist [facility] Sodium 138 135 - 145 mmol/L Potassium, pl 4.5 3.3 - 4.9 mmol/L [facility] Comment:Hemolyzed; Potassium value may be falsely elevated by as much as 0.3-0.5 mmol/L. Suggest redraw and reanalysis. Chloride 105 97 - 110 mmol/L [facility] CO2 24 22 - 32 mmol/L [facility] Anion gap 9 2 - 15 mmol/L [facility] BUN 21 6 - 25 mg/dL [facility] Creatinine 2.34(H) 0.60 - 1.10 mg/dL [facility] Glucose 89 70 - 199 mg/dL [facility] Comment: Interpretive Data Fasting glucose >/= 126 [...] 2022. Calcium 8.7 8.5 - 10.3 mg/dL [facility] Bilirubin, total 1.1 0.1 - 1.2 mg/dL [facility] Protein, pl 7.1 6.5 - 8.5 g/dL [facility] Albumin 3.9 3.5 - 5.0 g/dL [facility] Alk phos 257(H) 40 - 130 Units/L [facility] ALT 14 7 - 45 Units/L [facility] AST 37 10 - 45 Units/L [facility] Comment:Hemolyzed; result ma y be falsely elevated Blood 09/01/2024 12:5 7 AM CDT 09/01/2024 1:20 AM CDT us Diana Cassidy MD LAB BLOOD ORDERABLES Fi nal Result [facility] [place] [address] * Surgical pathology (08/02/2024 9:18 AM CDT) Tissue (Miscellaneous) 08/02/2024 9:18 AM CDT 08/02/2024 9:18 AM CDT Narrative [facility] - 08/14/2024 2:01 PM CDT EPIC results best viewed via link to PDF [facility] Pathology Consult Service [address], [place] [address] Note to Patients: This report may contain a detailed description of human tissue sent by a health care provider to the laboratory for pathologic evaluation. The content of this report is essential for diagnosis and may provide important critical findings. This information may be unfamiliar to patients to review without a medical professional present. It is advised that the patient review this report in the presence of a health care provider who can answer questions and explain the details. SURGICAL PATHOLOGY REPORT * Consult Report * [facility] is providing an additional review of previously collected tissue. FINAL Patient Name: MISHA BROWNE Address: [address] [place], [place] [id number] Gender: F : 1980 (Age: 43) Hospital #: [id number] Patient Type: [facility] Location: UNKNOWN Taken: 08/02/2024 Received: 08/02/2024 Accessioned: 08/05/2024 Reported: 08/14/2024 Physician(s): Beatriz Lee M.D. [facility] Department of Pathology [address] [place] [id number] P: [phone] F: [phone] Diagnosis: Consult material received from [place], [place] (OSC: [id number]; 11/17/2023) A. Kidney, allograft, needle biopsy - Acute T-cell mediated rejection, [place] 1A - Active antibody mediated rejection Consult material received from [place], [place] (OSC: [id number]; 11/17/2023) A. Liver, allograft, approximately 3 years 6 months, biopsy - No evidence of acute cellular rejection - Mild sinusoidal dilitation - No significant steatosis, fibrosis (trichrome), or ductal injury - Copper stain is negative - No significant stainable iron - No alpha 1 globules on PASD laha/08/13/2024 12:55 By this signature, I attest that the above diagnosis is based upon my personal examination of the slides(and/or other material indicated in the diagnosis). Kayla Burdick M.D. Report Electronically Reviewed and Signed Out By Kayla Burdick M.D. 08/14/2024 14:01:19 Diagnosis Comment Consult material received from [facility], [place], [place] (OSC: [id number]; 11/17/2023) Per chart review patient had a OLT in 1992 then a combined liver and kidney transplant at [place] on 04/2020. 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 Per paperwork, LFTs were reportedly ALT 50 AST [address] Cabrera (GI/[facility] Pathologist) has reviewed this biopsy and agrees with this section. Microscopic Description and Comment: Light Microscopy Provided for review are three H&E levels, two PAS stains, and one Festus's trichrome. Two cores of renal tissue are present, of which approximately 70% is entirely represented by cortex and the remaining by medulla. Up to 27 are available for evaluation, three of which are globally sclerotic. The non-sclerotic glomeruli are mostly unremarkable. There is mild glomerulitis. There is mild mesangial expansion. There is no crescent formation, endocapillary hypercellularity, or fibrinoid necrosis present. The cortical tubulointerstitial tissue has mild interstitial fibrosis and tubular atrophy affecting approximately 10-15% of the cortex. There is a patchy, mild to moderate inflammatory infiltrate that involves the areas of fibrotic interstitium, composed primarily of mononuclear cells. Preserved cortical areas show moderate inflammatory infiltrate. There is patchy uxag-ua-dmzfmizt tubulitis. Small arteries and arterioles show mild arteriosclerosis and mild arteriolar hyalinosis. There is no intimal arteritis. Peritubular capillaries are marked by severe peritubular capillaritis. Provided SV40 immunohistochemical stain (controls appropriate) is negative. Provided CD3 and CD20 stains highlight T- and B-cells, respectively. Immunofluorescence Microscopy Per the provided report, immunofluorescence was performed for IgG, IgA, IgM, C1q, C3, albumin, fibrin, and kappa and lambda light chains. Three glomeruli were present for evaluation, none are globally sclerotic. On a scale of 0-3+, the glomeruli showed neither immunoglobulins nor complement component staining. Tubular casts showed IgA (3+), IgM (2+), and both kappa and lambda light chain staining (both 3+). The tubular basement membranes showed focal deposits of C3 (2+). The arteries and capillaries stained for C3 (2+). C4d was negative in peritubular capillaries. Electron Microscopy Reportedly deferred. Chuy Moreno M.D. History: The patient is a 43-year-old woman with history of liver transplant and kidney transplant. DSAs were positive at the time of the biopsy. Materials Received: Received for review are ten slides labeled [id number], and nine slides labeled [id number], accompanied by a corresponding pathology report. The material originates from [facility], [place], [place]. Selected slide(s) may be digitally scanned for our files, and all materials are returned to the referring institution, along with a copy of our final report. RENAL TRANSPLANT BIOPSY BANFF CLASSIFICATION SYNOPTIC TEMPLATE Tubulitis (t): t2 Foci with 5-10 cells/tubular cross section t-IFTA ( Tubulitis in tubules within scarred cortex): t-IFTA 0 (none) Intimal arteritis (v): v0 No arteritis Total Inflammation: ti2 26-50% of total cortical parenchyma inflamed. Interstitial inflammation (i): i2 26-50% of parenchyma involved Interstitial Inflammation in areas of interstitial fibrosis and tubular atrophy (i-IFTA): i-IFTA1 10-25% of scarred cortical parenchyma involved Glomerulitis (g): g1 Glomerulitis in less than 25% of glomeruli Interstital fibrosis (ci): ci1 Mild interstitial fibrosis in 6-25% of cortical area Capillaritis (ptc): ptc3 - 10% of cortical ptcs with capillaritis, with max >10 luminal inflammatory cells Tubular atrophy (ct): ct1 Tubular atrophy in up to 25% of the area of cortical tubules Transplant glomerulopathy (cg): cg0 N o GBM double contours by light microscopy (LM) or EM. Mesangial matrix increase (mm): mm1 Up to 25% of nonsclerotic glomeruli affected (at least moderate matrix increase) Vascular intimal fibrosis (cv): cv1 Vascular narrowing of up to 25% luminal area by fibrointimal thickening of arteries +/- breach of internal elastic lamina or presence of foam cells or occasional mononuclear cells Arteriolar hyalinosis (ah): ah1 [id number] PAS-positive hyaline thickening in at least one arteriole Polyomavirus Nephropathy: Negative for Polyomavirus C4d scoring: c4d0 Negative ptcml (PTC multilayering) (requires EM): N/A - EM not performed By this signature, I attest that the above diagnosis is based upon my personal examination of the slides(and/or other material). Lucero Salmeron M.D. Any testing required for diagnostic purposes was performed in the Department of Pathology and Immunology at [facility], [address] [place] [address] CLIA # [id number] The performance characteristics of the testing cited in this report (if any) were determined by the [facility] Department of Pathology and Immunology [facility], as part of an ongoing vice president quality assurance program and in compliance with federally mandated regulations drawn from the Clinical Laboratory Improvement Act of 1988 (CLIA '88). Some of these tests rely on the use of analyte specific reagents (ASR) and are subject to specific labeling requirements by the US Food and Drug Administration. Such diagnostic tests may only be performed in a facility that is certified by the Department of Health and Human Services as a high complexity laboratory under CLIA '88. The FDA has determined that such clearance or approval is not necessary. ASRs should not be regarded as investigational or for research. ASRs were developed and the performance characteristics determined by the [facility], [facility] Department of Pathology and Immunology. It has not been cleared or approved by the U.S. Food and Drug Administration. Any test designated as LDT was developed and its performance characteristics determined by [facility]. It has not been cleared or approved by the FDA. This test is used for clinical purposes and should not be regarded as investigational or for research. Report images and/or scanned reports, if included, only viewable in PDF version of report. us Beatriz Lee MD LAB PATHOLOGY ORDERA BLES Final Result [facility]OLOGY LAB [address] [address] * XR Scoliosis 6 or More Views [...] Electronically signed by: Carlos Hayes D.O. Result [facility] Jessee Morton MD IMG XR PROCEDURES Final Re sult * Neuro CT Outside Reference (07/12/2024 5:48 PM CDT) Impressions [facility]_P[facility] - 07/12/2024 5:48 PM CDT These images are for Reference purposes only and have not been reviewed by [facility]. There will be no report generated by a [facility] Radiologist. Narrative [facility] - 07/12/2024 5:48 PM CDT EXAMINATION: Images For Reference Purposes Only Result [facility] Jessee Morton MD IMG CT PROCEDURES Final Re sult Performing Organization Address [facility] de Phone Number [facility] * Neuro CT Outside Reference (07/12/2024 5:46 PM CDT) Impressions [facility] - 07/12/2024 5:46 PM CDT These images are for Reference purposes only and have not been reviewed by [facility]. There will be no report generated by a [facility] Radiologist. Narrative [facility] - 07/12/2024 5:46 PM CDT EXAMINATION: Images For Reference Purposes Only Result [facility] Jessee Morton MD IMG CT PROCEDURES Final Re sult Performing Organization Address [facility] Co de Phone Number [facility] * Neuro MR Outside Reference (07/12/2024 5:44 PM CDT) Impressions [facility] - 07/12/2024 5:44 PM CDT These images are for Reference purposes only and have not been reviewed by [facility]. There will be no report generated by a [facility] Radiologist. Narrative [facility] - 07/12/2024 5:44 PM CDT EXAMINATION: Images For Reference Purposes Only Jessee Morton MD [facility] MRI PROCEDURES Final R esult Performing Organization Address [facility] de Phone Number [facility] * Neuro MR Outside Reference (07/12/2024 5:43 PM CDT) Impressions [facility] - 07/12/2024 5:43 PM CDT These images are for Reference purposes only and have not been reviewed by [facility]. There will be no report generated by a [facility] Radiologist. Narrative [facility] - 07/12/2024 5:43 PM CDT EXAMINATION: Images For Reference Purposes Only Jessee Morton MD [facility] MRI PROCEDURES Final R esult Performing Organization Address [facility] de Phone Number [facility] * XR Outside Reference (07/09/2024 8:48 AM CDT) Impressions [facility] - 07/09/2024 8:48 AM CDT These images are for Reference purposes only and have not been reviewed by [facility]. There will be no report generated by a [facility] Radiologist. Narrative [facility] - 07/09/2024 8:48 AM CDT EXAMINATION: Images For Reference Purposes Only Jessee Morton MD IMG XR PROCEDURES Final Re sult Performing Organization Address [facility] de Phone Number [facility] * XR Outside Reference (07/09/2024 8:46 AM CDT) Impressions [facility] - 07/09/2024 8:46 AM CDT These images are for Reference purposes only and have not been reviewed by [facility]. There will be no report generated by a [facility] Radiologist. Narrative [facility] - 07/09/2024 8:46 AM CDT EXAMINATION: Images For Reference Purposes Only us Jessee Morton MD IMG XR PROCEDURES Final Re sult Performing Organization Address [facility] Co de Phone Number [facility] * XR Outside Reference (07/09/2024 8:44 AM CDT) Impressions RAD_[facility]ERTA - 07/09/2024 8:44 AM CDT These images are for Reference purposes only and have not been reviewed by [facility]. There will be no report generated by a [facility] Radiologist. Narrative RAD_PACS_[facility] - 07/09/2024 8:44 AM CDT EXAMINATION: Images For Reference Purposes Only us Jessee Morton MD IMG XR PROCEDURES Final Re sult Performing Organization Address [facility] de Phone Number [facility] * Hepatitis panel, acute (04/16/2020 6:35 AM SALES DEVELOPMENT MANAGER) Hep A IgM Nonreactive Nonreactive [facility] Comment: Interpretive Data: If Hep A IgM Ab is reported as Equivocal, a new sample should be drawn in two weeks for testing. Current interpretive data was last revised on 19. Hep B core IgM Nonreactive Nonreactive [facility] Comment: Interpretive Data If HepB Core IgM Ab is reported as Equivocal, a new sample should be drawn in two weeks for testing. Current interpretive data was last revised on 19. Hep C Ab Nonreactive Nonreactive [facility] Comment:Antibodies to HCV no t detected. Does NOT exclude the possibility of recent exposure to HCV. HepBsAg Nonreactive Nonreactive [facility] Blood specimen (specimen) 04/16/2020 6:35 AM SALES DEVELOPMENT MANAGER 04/16/2020 7:34 AM SALES DEVELOPMENT MANAGER Jacob Gates MD LAB MICROBIOLOGY - GENER AL ORDERABLES Final Result Performing Organization Address [facility] de Phone Number [facility] Department [place] [address] from Last 3 Months or Most Recently Relevant to Health Maintenance Insurance [employer] OPEN ACCESS [employer] [facility] HEALTH PLAN [employer] [place] Advance Directives For more information, please contact: [phone] * Full Code (Latest Code Status on File) Date Activated Date Inactivated Comments 09/01/2024 11:58 AM 09/06/2024 9:43 PM * Full Code Date Activated Date Inactivated Comments 05/29/2024 10:30 PM 06/13/2024 7:10 PM * Full Code Date Activated Date Inactivated Comments 04/16/2020 1:16 AM 04/23/2020 6:51 PM * Full Code Date Activated Date Inactivated Comments 08/14/2019 3:14 PM 08/14/2019 9:26 PM * Full Code Date Activated Date Inactivated Comments 07/25/2019 6:15 AM 07/25/2019 11:51 PM Care Teams Traffic Analysis Technician Relationship Specialty Start Date End Date Lyly Fiore NP [address] [place] [address] PCP - General Nurse Practitioner 05/29/24 Beatriz Lee MD [address] [place] [address] Referring Physician Gastroenterology 07/25/19 Taylor Kitchen, draftspersonBond Broker 05/29/24
--- OUTSIDE RECORDS SUMMARY | 2024-10-05 20:31 | XMS_ITS | Encounter Summary ---
Author Organization [facility] Address [address] [facility] [place] [address] Care Team Providers Care Social Secretary Name Role Phone Hermes Ramirez MD Primary Care Provider Reason for Visit * Reason Onset Date Comments Refill Request 05/06/2023 Encounter Details Date Type Department Care Team (Late st Contact Info) Description 05/06/2023 Refill [place] [facility] [address] [address] Marion Pedroza MD [address] [place] [address] Refill Request Social History Tobacco [...] Currently or in the past [address] 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
--- OUTSIDE RECORDS SUMMARY | 2024-10-05 20:31 | XMS_ITS | Encounter Summary ---
Author Organization [facility] Address [address] [facility] [place] [address] Care Team Providers Care Legal Compliance Officer Name Role Phone Hermes Ramirez MD Primary Care Provider [phone] Reason for Visit * Reason Onset Date Comments Refill Request 09/06/2020 Encounter Details Date Type Department Care Team (Late st Contact Info) Description 09/06/2020 Refill [place] [facility] [address] [id number] Allen Manzano PAVasquez [address] [facility] [address] [place] [id number] Refill Request Social History Tobacco Use Types Packs/Day Years Used Date Smoking Tobacco: Former Cigarettes 0.5 20 0 03/20/2000 - 03/20/2020 Smokeless Tobacco: Never Social Connections Answer Date Recorded Conversations with friends/family/neighbors per week Not on file 05/25/2020 Comments No Sex and Gender Information Value Date Recorded Sex Assigned at Not on file 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
--- OUTSIDE RECORDS SUMMARY | 2024-10-05 20:31 | XMS_ITS | Clinical Summary ---
Author Organization [facility] Address [address] [place] [address] Phone Care Team Providers Care Teletypesetter Name Role Phone Hermes Ramirez MD Primary Care Provider [phone] Allergies Active Allergy Reactions Criticality Noted Date [...] BEDTIME 2 Active Butalbital-APAP -Caff-Cod (Fioricet/Codei ne) 06-082-26-30 MG Capsule Take by mouth. 2 Active [...] unspecified 05/04/2012 Liver replaced by transplant 01/04/2012 Encounters Date Type Department Care Team Description 07/26/2024 4:14 PM CDT - 07/26/2024 5:51 PM CDT Emergency [facility] Emergency [address] [place] [address] Gabriel Mcintyre PAC GERD (gastroesophageal reflux disease) Discharge Disposition: Discharged to home or Selfcare 07/26/2024 Travel from Last 3 Months Family History Medical History Relation Name Comments [...] Sign Reading Time Taken Comments Blood Pressure 151/82 07/26/2024 5:49 PM CDT Pulse 80 07/26/2024 5:49 PM CDT Temperature 36.8 C (98.2 F) 07/26/2024 3:25 PM CDT Respiratory Rate 16 07/26/2024 5:49 PM CDT Oxygen Saturation 100% 07/26/2024 5:49 PM CDT Inhaled Oxygen Concentration - - Weight 86.2 kg (190 lb) 07/26/2024 3:25 PM CDT Height 157.5 cm (5' 2) 07/26/2024 3:25 PM CDT Body Mass Index 34.75 07/26/2024 3:25 PM CDT Plan of Treatment Health Maintenance Due Date Last Done Comments Mammogram 1982 SARS-COV-2 Immunization (#1) 10/04/1987 Pneumococcal Immunization Combined (1 of 2 - PCV) 2001 HPV/Cotest 2012 Hepatitis B Immunization (3 of 3 - 19+ 3-dose series) 04/11/2018 11/10/2017, 10/09/2017 Discussion re Starting/Frequency of Mammograms 2022 Influenza Immunization (#1) 2024 Cervical Cancer Screening (CCS) 06/20/2025 Pap Smear 06/20/2025 06/20/2022 Respiratory Syncytial Virus (RSV) Immunization (Adult) (1 - 1-dose 75+ series) 2057 DTaP/Tdap/Td Immunization Discontinued 2021, 05/10/2017, 03/20/2017, Additional history exists TdaP Immunization Completed 10/18/2021, , 03/20/2017, Additional history exists Hepatitis C Virus (HCV) Screening Completed 11/07/2023 Human Papillomavirus (HPV) Immunization Aged Out No longer eligible based on patient's age to complete this topic Meningococcal Immunization (ACWY) Aged Out No longer eligible based on patient's age to complete this topic Rotavirus Immunization Aged Out No lo nger eligible based on patient's age to complete this topic Insurance MEDICAID BLUE [employer]OSS [facility] [employer] Care Teams Teletypesetter Relationship Specialty Start Date End Date Hermes Ramirez MD [address] [address] PCP - General Family Medicine 05/09/18
--- OUTSIDE RECORDS SUMMARY | 2024-10-05 20:31 | XMS_ITS | Encounter Summary ---
Author Organization [facility] Address [address] [place] [address] Care Team Providers Care Thread Machine Operator Name Role Phone Ashley ZUNIGA MD, Hermes Primary Care Provid er Lyly Fiore NP Primary Care Provider [phone] Encounter Details Date Type Department Care Team (Late st Contact Info) Description 06/03/2017 Abstract [facility] CONVERSION [address] [place] [address] , Generic ConversionMD Social History Tobacco Use Types Packs/Day Years Used Date Smoking Tobacco: Never Assessed Comments Unknown Sex and Gender Information Value Date Recorded Sex Assigned at Female 04/05/2024 4:26 PM SANDWICH BOARD CARRIER Legal Sex Female 9:15 PM SANDWICH BOARD CARRIER Gender Identity Not on file Sexual Orientation Not on file documented as of this encounter Plan of Treatment Not on file documented as of this encounter Visit Diagnoses Not on filedocumented in this encounter Additional Health Concerns Infection Onset Date Last Indicated Resolved Time COVID-19 Rule Out 03/30/2020 03/30/2020 03/30/2020 9:29 PM SANDWICH BOARD CARRIER COVID-19 Rule Out 03/30/2020 03/30/2020 03/31/2020 12:28 PM SANDWICH BOARD CARRIER COVID-19 Rule Out 02/16/2024 02/16/2024 02/16/2024 9:16 PM SANDWICH BOARD CARRIER Rhinovirus 02/16/2024 02/16/2024 02/26/2024 12:3 2 AM SANDWICH BOARD CARRIER COVID-19 Rule Out 08/26/2024 08/26/2024 08/26/2024 11:07 PM CDT Respiratory Rule Out 08/26/2024 08/26/2024 025 11:06 PM CDT documented as of this encounter Care Teams Thread Machine Operator Relationship Specialty Start Date End Date Hermes Ramirez III, MD [address] [address] PCP - General FAMILY PRACTICE 06/20/17 04/13/24 Lyly Fiore NP [address] [place] [address] PCP - General NURSE PRACTITIONER 04/14/24 documented as of this encounter
--- OUTSIDE RECORDS SUMMARY | 2024-10-05 20:31 | XMS_ITS ---
Author Organization [facility] Address [address] [place] [address] Care Team Providers Care Digital Technician Name Role Phone Beatriz Lee MD Unavailable [phone] Lyly Fiore FRIED CAKE MAKER Primary Care Provider Taylor Kitchen RN Unavailable Unav ailable Transplant Episode Liver Recipient 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
--- OUTSIDE RECORDS SUMMARY | 2024-10-05 20:31 | XMS_ITS | Encounter Summary ---
Author Organization [facility] Address [address] [facility] [place] [address] Care Team Providers Care Cork Cutter Name Role Phone Hermes Ramirez MD Primary Care Provider Reason for Visit * Reason Onset Date Comments Refill Request 06/01/2023 Encounter Details Date Type Department Care Team (Late st Contact Info) Description 06/01/2023 Refill [place] [facility] [address] [address] Marion Pedroza MD [address] [place] [address] Refill Request Social History Tobacco [...] Currently or in the past 3 m [facility], have you worried your food would run [...] on file Legal Sex Female 1:03 PM 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
--- OUTSIDE RECORDS SUMMARY | 2024-10-05 20:31 | XMS_ITS | Encounter Summary ---
Author Organization 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 Gender Identity Not on file Sexual Orientation Not on file documented as of this encounter Plan of Treatment Not on file documented as of this encounter Visit Diagnoses Diagnosis Need for prophylactic immunotherapy Kidney replaced by transplant Liver replaced by transplant (CMS-HCC) Liver replaced by transplant Elevated serum creatinine Other nonspecific findings on examination of blood Essential hypertension Unspecified essential hypertension documented in this encounter Additional Health Concerns Assessment Noted Time PHQ-2 Depression Total Score: 2 10/15/19 21 10:01 AM CDT documented as of this encounter Care Teams Treasury Manager Relationship Specialty Start Date End Date Hermes Ramirez MD [address] [place] [address] PCP - General 05/28/20 documented as of this encounter
--- OUTSIDE RECORDS SUMMARY | 2024-10-05 20:31 | XMS_ITS | Encounter Summary ---
Author Organization [facility] Address [address] [place] [address] Care Team Providers Care Medical Office Asst Name Role Phone Hermes Ramirez MD Primary Care Provider [phone] Reason for Visit * Reason Onset Date Comments Refill Request 09/06/2020 Encounter Details Date Type Department Care Team (Late st Contact Info) Description 09/06/2020 Refill [place] [facility] [address] [facility] [address] [place], [place] [id number] [place] [address] [place] [address] Refill Request Social History Tobacco Use Types Packs/Day Years Used Date Smoking Tobacco: Former Cigarettes 0.5 20 0 03/20/2000 - 03/20/2020 Smokeless Tobacco: Never Social Connections Answer Date Recorded Conversations with friends/family/neighbors per week Not on file 05/25/2020 Comments No Sex and Gender Information Value Date Recorded Sex Assigned at Not on file Legal Sex Female 1:03 PM 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
--- OUTSIDE RECORDS SUMMARY | 2024-10-05 20:31 | XMS_ITS | Encounter Summary ---
Author Organization [facility] Address [address] [facility] [place] [address] Care Team Providers Care Owner Operator Name Role Phone Hermes Ramirez MD Primary Care Provider [phone] Reason for Visit * Reason Onset Date Comments Refill Request 06/01/2023 Encounter Details Date Type Department Care Team (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
--- OUTSIDE RECORDS SUMMARY | 2024-10-05 20:31 | XMS_ITS | Encounter Summary ---
Author Organization [facility] Address [address] [place] [address] Care Team Providers Care Health Actuary Name Role Phone Hermes Ramirez MD Primary Care Provider Reason for Visit * Reason Onset Date Comments Refill Request 06/01/2023 Encounter Details Date Type Department Care Team (Late st Contact Info) Description 06/01/2023 Refill [facility] [address] [phone] Tico Salmon NP [address] [place] [address] Refill Request Social History Tobacco [...] Currently or in the past 3 m 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
--- OUTSIDE RECORDS SUMMARY | 2024-10-05 20:31 | XMS_ITS | Encounter Summary ---
Author Organization [facility] Address [address] [place] [address] Care Team Providers Care Cinder Pit Crane Operator Name Role Phone Ashley ZUNIGA MD, Hermes Perez Primary Care Provid er Lyly Fiore NP Primary Care Provider [phone] Encounter Details Date Type Department Care Team (Late st Contact Info) Description 08/22/2018 Abstract [facility] [address] [place] [id number] Social History Tobacco Use Types Packs/Day Years Used Date Smoking Tobacco: Every Day Cigarettes 0.5 15 Smokeless Tobacco: Never Alcohol Use Standard Drinks/Week Comments No 0 (1 standard drink = 0.6 oz pur e alcohol) Comments No Sex and Gender Information Value Date Recorded Sex Assigned at Female 04/05/2024 4:26 PM HAZARDOUS MATERIALS HANDLER Legal Sex Female 9:15 PM HAZARDOUS MATERIALS HANDLER Gender Identity Not on file Sexual Orientation Not on file documented as of this encounter Plan of Treatment Not on file documented as of this encounter Visit Diagnoses Not on filedocumented in this encounter Additional Health Concerns Infection Onset Date Last Indicated Resolved Time COVID-19 Rule Out 03/30/2020 03/30/2020 03/30/2020 9:29 PM HAZARDOUS MATERIALS HANDLER COVID-19 Rule Out 03/30/2020 03/30/2020 03/31/2020 12:28 PM HAZARDOUS MATERIALS HANDLER COVID-19 Rule Out 02/16/2024 02/16/2024 02/16/2024 9:16 PM HAZARDOUS MATERIALS HANDLER Rhinovirus 02/16/2024 02/16/2024 02/26/2024 12:3 2 AM HAZARDOUS MATERIALS HANDLER COVID-19 Rule Out 08/26/2024 08/26/2024 08/26/2024 11:07 PM CDT Respiratory Rule Out 08/26/2024 08/26/2024 025 11:06 PM CDT documented as of this encounter Care Teams Cinder Pit Crane Operator Relationship Specialty Start Date End Date Hermes Ramirez III, MD [address] [address] PCP - General FAMILY PRACTICE 06/20/17 04/13/24 Lyly Fiore NP [address] [place] [address] PCP - General NURSE PRACTITIONER 04/14/24 documented as of this encounter
--- OUTSIDE RECORDS SUMMARY | 2024-10-05 20:31 | XMS_ITS | Encounter Summary ---
Author Organization [facility] Address [facility] [place] [address] Care Team Providers Care Brim Pouncer Name Role Phone Ashley ZUNIGA MD, Hermes Perez Primary Care Provid er Lyly Fiore NP Primary Care Provider [phone] Encounter Details Date Type Department Care Team (Late st Contact Info) Description 02/22/2024 Hospital Follow-up Call [facility] [address] [place] [address] Zulma Ardon, RN Social History Tobacco Use [...] any time in the past 12 m [facility], were you homeless or living in a fdc (including now)? No 02/20/2024 Comments No Sex and Gender Information Value Date Recorded Sex Assigned at Female 04/05/2024 4:26 PM COURSE DEVELOPER Legal Sex Female 9:15 PM COURSE DEVELOPER Gender Identity Not on file Sexual [...] Andino RN Active documented in this encounter Plan of Treatment Not on file documented as of this encounter Visit Diagnoses Not on filedocumented in this encounter Additional Health Concerns Infection Onset Date Last Indicated Resolved Time Rhinovirus 02/16/2024 02/16/2024 02/26/2024 12:3 2 AM COURSE DEVELOPER COVID-19 Rule Out 08/26/2024 08/26/2024 08/26/2024 11:07 PM CDT Respiratory Rule Out 08/26/2024 08/26/2024 025 11:06 PM CDT documented as of this encounter Care Teams Brim Pouncer Relationship Specialty Start Date End Date Hermes Ramirez III, MD [address] [address] PCP - General FAMILY PRACTICE 06/20/17 04/13/24 Lyly Fiore NP [address] [place] [address] PCP - General NURSE PRACTITIONER 04/14/24 documented as of this encounter
--- OUTSIDE RECORDS SUMMARY | 2024-10-05 20:31 | XMS_ITS | Encounter Summary ---
Author Organization [facility] Address [address] [place] [address] Care Team Providers Care Separating Machine Operator Name Role Phone Hermes Ramirez MD Primary Care Provider [phone] Reason for Visit * Reason Onset Date Comments Refill Request 04/08/2023 Encounter Details Date Type Department Care Team (Late st Contact Info) Description 04/08/2023 Refill [facility] [address] [phone] Tico Salmon NP [address] [place] [address] Refill Request Social History Tobacco [...] Currently or in the past 3 m [facility], have you worried your [...] on file Legal 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
--- OUTSIDE RECORDS SUMMARY | 2024-10-05 20:31 | XMS_ITS | Clinical Summary ---
Author Organization [facility] Address [address] [place] [address] Care Team Providers Care Junior Analyst Name Role Phone Hermes Ramirez MD Primary Care Provider Allergies Active Allergy Reactions Criticality Noted Date Comments Aspirin Other High 04/23/2020 High risk bleeding Azithromycin Unknown High 04/24/2020 Medication interaction Codeine Unknown High 04/24/2020 Erythromycin Other High 04/23/2020 Medication interaction Gentamicin Other High 04/23/2020 Medication interaction Opioids - Morphine Analogues Pruritus Medium 02/21/2022 MD Roshni notified. Edit 03/30/22: Per pt ONLY PO morphine makes her itch. Tolerated IV and PO hydromorphone 11/2023 Ketorolac Renal Toxicity Medium 04/23/2020 Medications metoPROLOL XL (TOPROL XL) 100 mg PO sustained release tablet Take 100 mg by mouth two times daily Do Not Crush. Active venlafaxine (EFFEXOR) 37.5 mg PO tablet Take 1 tablet (37.5 mg) by mouth daily 30 tablet 2 4 Active melatonin 3 mg PO tablet Take 3 mg by mouth nightly Active Multivitamins with Minerals (Hair,Skin and Nails) PO tablet Take 1 tablet by mouth daily Active amLODIPine (NORVASC) 10 mg PO tabletIndication s:hypertension Take 0.5 tablets (5 mg) by mouth daily 4 Active topiramate (TOPAMAX) 50 mg PO tabletIndication s:Mood disorder Take 1.5 tablets (75 mg) by mouth two times daily 4 Active acetaminophen (TYLENOL) 325 mg PO Tab tablet Take 2 tablets (650 mg) by mouth every 6 hours as needed for Pain 4 Active calcium carb elemental (OS-GERARDO) 500 mg calcium (1,250 mg) PO tablet Take 1 tablet (500 mg) by mouth two times daily (with breakfast and dinner) Best if taken with food. 4 Active senna-docusate (SENOKOT-S) PO tablet Take 2 tablets by mouth daily as needed for Constipation 4 Active Envarsus XR 1 mg PO extended release tabletIndication s:Liver transplant status (CMS-HCC),Kidney transplant status Take 3 tablets (3 mg) by mouth every morning Swallow Whole. 90 tablet 5 4 Active tacrolimus XR (Envarsus XR) 4 mg PO extended release tabletIndication s:Liver transplant status (CMS-HCC),Kidney transplant status Take 1 tablet (4 mg) by mouth every morning Swallow WHole. 30 tablet 5 4 Active azaTHIOprine (IMURAN) 50 mg PO tablet Take 1 tablet (50 mg) by mouth daily Swallow whole. 5 tablet 4 Active predniSONE (DELTASONE) 5 mg PO tabletIndication s:Liver transplant status (CMS-HCC),Kidney transplant status Take 1 tablet (5 mg) by mouth every morning with breakfast Take with or after a meal. 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 11/21/2023 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 11/09/2023 Elevated alkaline phosphatas e, c/f possible transplant rejection 11/08/2023 Elevated serum creatinine 11/08/2023 Chronic bilateral low back pain without sciatica 11/08/2023 Migraines 11/08/2023 Essential hypertension 11/08/2023 GERD (gastroesophageal reflux disease) Elevated LFTs 03/31/2022 Obesity (BMI 30-39.9) 02/19/2022 History of placement of ear tubes 11/23/2021 Anxiety 02/21/2021 Mood disorder 02/21/2021 Insomnia 02/21/2021 Encounter for immunosuppress ion management after liver transplant 05/22/2020 Kidney transplanted 05/22/2020 Other complication of kidney transplant Kidney replaced by transplant Liver replaced by transplant Resolved Problems Problem Noted Date Diagnosed Date Resolved Date Fever 07/20/2020 01/15/2021 E-coli UTI 07/20/2020 01/15/2021 Edema 06/16/2020 01/15/2021 Gout 05/22/2020 01/15/2021 Obesity (BMI 30-39.9) 04/24/20202020 Cirrhosis of liver not due to alcohol 04/24/2020 05/22/2020 Stage 4 chronic kidney disease 04/24/2020 05/22/2020 Hepatic encephalopathy 04/24/202005/22 Thrombocytopenia 04/24/2020 05/22/2020 Portal hypertension 04/24/2020 05/23/19 Liver transplanted 04/24/2020 CHRISTY (acute kidney injury) E. coli pyelonephritis 01/15 Immunizations Immunization Administration Dates Next Due Tetanus-Diphth Toxoids Injection 10/18/2021 Zuejkxv-Eljiznffpa-Yhxwccjzj Pertussis (Tdap) Injection 10/18/2021,05/10/2017,05/25/2012 hepatitis A vaccine injection, Adult 10/09/2017 hepatitis B vaccine injection 11/10/2017, 018 Family History Medical History Relation Comments Diabetes Maternal Grandmother Diabetes Mother Diabetes Paternal Grandmother Relation Status Comments Maternal Grandmother Mother Paternal Grandmother Social History Tobacco Use Types Packs/Day Years Used Date Smoking Tobacco: Some Days Cigarettes 0.5 21.5 Started: 03/20/2000; Last attempted to quit: 03/20/2020 Smokeless Tobacco: Never Tobacco Cessation:Ready to Q uit: Not Asked; Counseling Given: Not Answered Alcohol Use Standard Drinks/Week Comments Never 0 [...] or in the past 3 m onths, have you worried your food would run out before you had money to buy more? No 2023 In the past 12 months, have you run out of food or been unable to get more? No 11/22/2023 Transportation Needs Answer Date Record ed Currently or in the past 3 m onths, has lack of transportation kept you from medical appointments, getting food or medicine, or providing care to a family member? No 11/22/2023 Non-Medical Transportation Needs? Not on file 11/22/2023 Housing Stability Answer Date Recorded Mortgage Payment Concerns? Not on file 02/21 Number of Places Lived in the Last Year Not on f ile 02/21/2023 Unstable Housing? Not on file 02/21/2023 Employment Status Answer Date Recorded Are you currently unemployed and requesting reso urces? No 11/22/2023 Utilities Answer Date Recorded Currently or in the past 12 months, have you or household members gone without utilities (heat, water, electricity)? No 11/22/2023 Interpersonal Safety Answer Date Record ed Are you currently concerned about physical or em otional safety? No 11/22/2023 In the past 12 months, have you been hit, slapped, kicked or otherwise physically hurt by someone? No 11/22/2023 In the past 12 months, have you been humiliated or emotionally abused in other ways by your partner or ex-partner, friend/family member? No 11/22/2023 Housing Insecurity Answer Date Recorded Are you currently without housing? 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 Gender Identity Not on file Sexual Orientation Not on file Last Filed Vital Signs Vital Sign Reading Time Taken Comments Blood Pressure 117/74 11/29/2023 2:30 PM CDT Pulse 69 01/18/2024 11:14 AM CDT Temperature 36.6 C (97.8 F) 01/18/2024 11:11 AM CDT Respiratory Rate 18 11/29/2023 2:30 PM CDT Oxygen Saturation 98% 11/29/2023 2:30 PM CDT Inhaled Oxygen Concentration - - Weight 86.2 kg (190 lb) 01/18/2024 11:05 AM CDT Pt reported Height 157.5 cm (5' 2) 01/18/2024 11:05 AM CDT Body Mass Index 34.75 01/18/2024 11:05 AM CDT Plan of Treatment Health Maintenance Due Date Last Done Comments Pneumococcal 7-64 (1 of 2 - PCV) 2001 HPV Vaccines (1 - Risk 3-dose SCDM series) 2009 COVID-19 Vaccine ( season) 2023 Screening Mammogram 08/23/2024 08/24/2023 Influenza Vaccine (#1) 2024 Screen for Cervical Cancer 06/20/202506/20, 06/20/2022, 04/28/2020 DTaP,Tdap and Td Vaccines (6 - Td or Tdap) 10/19/2031 10/18/2021, 10/18/2021, 05/10/2017, Additional history exists HIV Screening Completed 06/17/2020, 04/20, 04/23/2020 Hepatitis C Screening Completed 11/07/2023 , 06/17/2020, 05/08/2020, Additional history exists Meningococcal B Aged Out No longer el igible based on patient's age to complete this topic RSV Vaccine (Pediatric) Aged Out No l onger eligible based on patient's age to complete this topic Medical Devices Implanted Type Area Sort Worker Device Identifier Shelf Expiration Date Model / Serial / Lot Liver - [id number] Implanted:Qty: 1 on 05/09/2020 by Nirav Carpio MD at [facility] N/A: Abdomen ORGAN PROCUREMENT ORGANIZATION 05/10/2020 ORGAN - LIVER / [id number] / LOT NA Left Kidney - [id number] Implanted:Qty: 1 on 05/09/2020 by Nirav Carpio MD at [facility] N/A: Abdomen ORGAN PROCUREMENT ORGANIZATION 05/10/2020 ORGAN - LEFT KIDNEY / [id number] / LOT NA Stent Ureteral L12 Cm L100 Cm Od6 Fr .028 In Closed End Design One Step Insertion Radiopaque Filler Double-J Silicone Disposable - [id number] Implanted:Qty: 1 on 05/09/2020 by Nirav Carpio MD at [facility] N/A: Abdomen OLYMPUS - GYRUS ACMI WAGNER 02/11/2025 [id number] / / [id number] Stent Ureteral L12 Cm L100 Cm Od6 Fr .028 In Closed End Design One Step Insertion Radiopaque Filler Double-J Silicone Disposable - [id number] Implanted:Qty: 1 on 05/09/2020 by Nirav Carpio MD at [facility] N/A: Abdomen OLYMPUS - GYRUS ACMI WAGNER 02/11/2025 [id number] / / [id number] Device Closure L70 Cm .038 In Insertion Sheath Arteriotomy Clinical Faculty Guidewire J Personnel Quality Assurance Auditor Vascular Angio-Seal Evolution ([id number]) - [id number] Implanted:Qty: 1 on 07/20/2020 at [facility] TERUMO MED[employer] WAGNER 03/19/2021 [id number] / / [id number] Procedures Procedure Name Priority Date/Time Associated Diagnosis Comments HEPATITIS C VIRUS ANTIBODY Routine 11/07/2023 5:43 AM CDT HIV RNA QUANTITATION (HIV VIRAL LOAD) Routine 06/17/2020 9:55 AM CDT 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 This does not exclude the possibility of exposure to HCV. 11/07/2023 5:43 AM CDT 11/07/2023 6:16 AM CDT Phillip Mustafa MD LAB BLOOD ORDERABLES Final Re sult [address] [address] * HIV RNA Quantitation (06/17/2020 9:55 AM CDT) [facility] HIV-1 RNA QUANTITATION HIV RNA Quantitation [facility] HIV-1 RNA QUANTITATION Less than 40 Less than 40 Copies/m L [facility] HIV LOG RESULT Less than 1.6 R [facility] Comment: Methodology: Quantitation of HIV RNA is based upon amplification and detection of HIV genomic RNA by real-time PCR. A patient value of less than 40 copies/mL indicates that the patient's viral load is below the quantitative limit of this assay, and does not indicate that the patient is not infected with HIV. A value of greater than 10,000,000 copies/mL indicates that the patient's HIV viral load exceeds the quantitative range of this assay. BLOOD SPECIMEN OBTAINED FOR BLOOD CULTURE / Unknown 06/17/2020 9:55 AM CDT 06/17/2020 10:42 AM CDT Allen Manzano PA-C LAB BLOOD MICRO Final Resu lt [address] [address] * Pathology Gyne Cytology: (04/28/2020 12:00 AM CARRY IN WORKER) [facility] AP [facility] COPA TH CONVERSION PATHOLOGY RESULT Department of Pathology [facility] [address] [facility] [place] [address] Final *Clinical Data Electronic version* This report may not match the original report format REPORT DATE: 05/04/2020 FINAL CYTOLOGIC DIAGNOSIS GYNE THIN PREP + HPV HIGH RISK Adequacy: Satisfactory for evaluation, but limited by no transformation zone. General Category: Negative for intraepithelial lesion or malignancy. Description: Fungal organisms morphologically consistent with Lydia. HPV mRNA E6/E7 NOT DETECTED Performed using the APTIMA HPV Assay ([employer]) This assay detects E6/E7 viral messenger RNA (mRNA) from 14 high risk HPV types (16, 18, 31, 33, 35, 39, 45, 51, 52, 56, 58, 59, 66, 68) [Reference Range = NOT DETECTED] TEST PERFORMED AT: [facility], [address] [place] [address]. Cryptography Teacher: David Kc MD. IA # [id number]. Attending Pathologist: Destiny Obregon MD, PhD * Electronically signed Review by Junior Graphic Designer: Akil De La Cruz * Electronically signed * * *The PAP smear is a screening procedure with the potential for false negative and false positive results.* * * NOTE This case was reviewed by a pathologist for QC purposes only. SPECIMEN(S) RECEIVED A: Gyne Thin Prep + HPV high risk *The above listed tests (if any) were developed and the performance characteristics determined by [facility] Department of Pathology. These tests have not been cleared or approved for commercial use by the U.S. Food and Drug Administration. This test is used for clinical purposes. It should not be regarded as investigational or for research. The FDA has determined that FDA review is not required for such assays. This is for [id number]. CLINICAL INFORMATION Date of Last Menstrual Period: UNKNOWN Other Clinical Conditions: LSIL or higher, bx/pap HPV, Hx/Dx/Rx Intradepartmental Consultation Pathologist: ICD-CM(s): A; Z12.4 Z11.51 CPT(s): A; 97974, 74475 [facility] COPATH CONVERSION AP Final Diagnosis GYNE THIN PREP + HPV HIGH RISK Adequacy: Satisfactory for evaluation, but limited by no transformation zone. General Category: Negative for intraepithelial lesion or malignancy. Description: Fungal organisms morphologically consistent with Lydia. HPV mRNA E6/E7 NOT DETECTED Performed using the APTIMA HPV Assay ([employer]) This assay detects E6/E7 viral messenger RNA (mRNA) from 14 high risk HPV types (16, 18, 31, 33, 35, 39, 45, 51, 52, 56, 58, 59, 66, 68) [Reference Range = NOT DETECTED] TEST PERFORMED AT: [facility], [address] [place] [address]. Cryptography Teacher: David Kc MD. CLIA # [id number]. [facility] COPATH CONVERSION AP Notes This case was reviewed by a pathologist for QC purposes only. [facility] COPATH CONVERSION AP ICD-10 Code Z12.4 Z11.51 [facility] COPATH CONVERSION HPV HR SCREEN SEE COMMENT [facility] COPATH CONVERSION 04/28/2020 04/29/2020 7:2 0 AM CARRY IN WORKER Dulce Austin MD PATHOLOGY Edited Result - Final [facility] COPATH CONVERSION from Last 3 Months or Most Recently Relevant to Health Maintenance Advance Directives Documents on File Type Date Recorded Patient Bull Wheel Worker Expl anation Advance Directives 07/18/2020 9:50 AM * Full Code (Latest Code Status on File) Date Activated Date Inactivated Comments 11/06/2023 8:31 PM * Full Code Date Activated Date Inactivated Comments 03/30/2022 7:46 PM 11/06/2023 8:31 PM * Full Code Date Activated Date Inactivated Comments 02/17/2022 3:56 PM 03/30/2022 7:46 PM * Full Code Date Activated Date Inactivated Comments 12/14/2020 1:59 PM 02/17/2022 3:56 PM * Full Code Date Activated Date Inactivated Comments 07/18/2020 1:35 AM 12/14/2020 1:59 PM Care Teams Junior Analyst Relationship Specialty Start Date End Date Hermes Ramirez MD [address] [place] [id number] PCP - General 05/28/20
--- OUTSIDE RECORDS SUMMARY | 2024-10-05 20:31 | XMS_ITS ---
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 coli pyelonephritis 01/15/2021 Donor Information Organ ABO Source Meets Risk Criteria HLA Match Mismatches Cross Match Liver O No A: B: DR: Left Kidney O No A: B: DR: Liver Donor Serology Results Anti-CMV No results on file EBV IgG No results on file Anti-HBcAb No results on file HBsAg No results on file HBV DNA No results on file Anti-HCV No results on file Anti-HIV I/II No results on file RPR/VDRL No results on file EBV IgM No results on file HBsAb No results on file EBNA No results on file Anti-HTLV I/II No results on file SARS CoV-2 No results on file Left Kidney Donor Serology Results Anti-CMV No results on file EBV IgG No results on file Anti-HBcAb No results on file HBsAg No results on file HBV DNA No results on file Anti-HCV No results on file Anti-HIV I/II No results on file RPR/VDRL No results on file EBV IgM No results on file HBsAb No results on file EBNA No results on file Anti-HTLV I/II No results on file SARS CoV-2 No results on file Care Team Name Role Phone Fax Email Misty Ash RN Kidney, Liver Coordinator N/A N/A N/A Palak Garnica MD Transplant Attending Physician [phone] [email or web address] Nirav Carpio MD Transplant Surgeon [phone] N/A Snow Orozco MD Transplant Vinyl Hanger [phone] [email or web address] Post-Transplant Pre-Transplant Admitted: 05/08/2020 Referred: 04/24/2020 Transplanted: 05/09/2020 Evaluation began: Discharged: 05/18/2020 Committee: 04/30/2020 Center waitlisted:
--- OUTSIDE RECORDS SUMMARY | 2024-10-05 20:31 | XMS_ITS | Encounter Summary ---
Author Organization [facility] Address [address] [place] [address] Care Team Providers Care Track Fitter Name Role Phone Hermes Ramirez MD Primary Care Provider Reason for Visit * Reason Onset Date Comments Refill Request 09/02/2022 Encounter Details Date Type Department Care Team (Late st Contact Info) Description 09/02/2022 Refill [facility] [facility] [address] [phone] Tico Salmon NP [address] [place] [address] Refill Request Social History Tobacco [...] Currently or in the past 3 m [facility], have you worried your food would run out before you had money to buy more? No 2021 In the past 12 months, have you run out of food or been unable to get more? No 02/18/2022 Transportation Needs Answer Date Record ed Currently or in the past 3 m [facility], has lack of transportation kept you from [...] Stability Answer Date Recorded Mortgage Payment Concerns? No 02/[address] Lived in the Last Year Not on f ile 02/18/2022 Unstable Housing? No 02/18/2022 Utilities Answer Date Recorded Currently or in the past 12 months, have you or household members gone without utilities (heat, water, electricity)? 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 No / Unsure 09/01/2022 11:22 AM CDT documented as of this encounter Plan of Treatment Not on file documented as of this encounter Visit Diagnoses Not on filedocumented in this encounter Additional Health Concerns Assessment Noted Time PHQ-9 Depression Total Score: 6 12/08/19 22 3:08 PM CDT PHQ-2 Depression Total Score: 0 06/23/19 23 10:20 AM CDT documented as of this encounter Care Teams Track Fitter Relationship Specialty Start Date End Date Hermes Ramirez MD [address] [place] [address] PCP - General 05/28/20 documented as of this encounter
--- OUTSIDE RECORDS SUMMARY | 2024-10-05 20:31 | XMS_ITS | Encounter Summary ---
Author Organization [facility] Address [address] [facility] [address] [place] [address] Care Team Providers Care Unscrambler Name Role Phone Hermes Ramirez MD Primary Care Provider Reason for Visit * Reason Comments Refill Request Encounter Details Date Type Department Care Team ([facility] st Contact Info) Description 01/10/2023 Refill [place] [facility] [address] [facility] [address] [place] [address] Allen Manzano, PAMoisésC [address] 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
--- OUTSIDE RECORDS SUMMARY | 2024-10-05 20:31 | XMS_ITS | Clinical Summary ---
Author Organization [facility] Address [address] [place] [address] Care Team Providers Care Inspector Precision Assembly Name Role Phone Beatriz Lee MD Unavailable [phone] Lyly Fiore BREW HOUSE SUPERVISOR Primary Care Provider Taylor Kitchen RN Unavailable [...] different from the original. Lab: [facility]. . . 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 She has CKD with baseline creatinine ~2. Previously followed at [facility], but has she has been wanting to transfer care to [place] but has not been able to schedule an appointment. She follows with [facility]. Per Liver Transplant office [...] with baseline creatinine ~2. Previously followed at [facility], but has she has been wanting to transfer care to [place] but has not been able to schedule an appointment. She follows with [facility]. Per Liver Transplant office [...] with baseline creatinine ~2. Previously followed at [facility], but has she has been wanting to transfer care to [place] but has not been able to schedule an appointment. She follows with [facility]. Per Liver Transplant office [...] with baseline creatinine ~2. Previously followed at [facility], but has she has been wanting to transfer care to [place] but has not been able to schedule an appointment. She follows with [facility]. Per Liver Transplant office [...] with baseline creatinine ~2. Previously followed at [facility], but has she has been wanting to transfer care to [place] but has not been able to schedule an appointment. She follows with [facility]. Per Liver Transplant office [...] 5 mg daily (previously 2.5) -Given worsening CHRSITY on CKD, gave 1 L of IVF [...] with baseline creatinine ~2. Previously followed at [facility], but has she has been wanting to transfer care to [place] but has not been able to schedule an appointment. She follows with [facility]. Per Liver Transplant office [...] with baseline creatinine ~2. Previously followed at [facility], but has she has been wanting to transfer care to [place] but has not been able to schedule an appointment. She follows with [facility]. Per Liver Transplant office [...] with baseline creatinine ~2. Previously followed at [facility], but has she has been wanting to transfer care to [place] but has not been able to schedule an appointment. She follows with [facility]. Per Liver Transplant office [...] with baseline creatinine ~2. Previously followed at [facility], but has she has been wanting to transfer care to [place] but has not been able to schedule an appointment. She follows with [facility]. Per Liver Transplant office [...] with baseline creatinine ~2. Previously followed at [facility], but has she has been wanting to transfer care to [place] but has not been able to schedule an appointment. She follows with [facility]. Per Liver Transplant office [...] gave 1 L of IVF -Blood cultures / came back positive for MRSE after 21 [...] with baseline creatinine ~2. Previously followed at [facility], but has she has been wanting to transfer care to [place] but has not been able to schedule an appointment. She follows with [facility]. Per Liver Transplant office [...] we would not be able to prescribe fci opioids on discharge. Discussed importance of outpatient [...] we would not be able to prescribe fci opioids on discharge. Discussed importance of outpatient [...] we would not be able to prescribe long term care social worker opioids on discharge. Discussed importance of outpatient [...] we would not be able to prescribe fci opioids on discharge. Discussed importance of outpatient [...] we would not be able to prescribe fci opioids on discharge. Discussed importance of outpatient [...] we would not be able to prescribe long term care social worker opioids on discharge. Discussed importance of outpatient [...] we would not be able to prescribe fci opioids on discharge. Discussed importance of outpatient [...] we would not be able to prescribe fci opioids on discharge. Discussed importance of outpatient [...] we would not be able to prescribe long term care social worker opioids on discharge. Discussed importance of outpatient [...] we would not be able to prescribe long term care social worker opioids on discharge. Discussed importance of outpatient [...] we would not be able to prescribe fci opioids on discharge. Discussed importance of outpatient [...] we would not be able to prescribe fci opioids on discharge. Discussed importance of outpatient [...] with baseline creatinine ~2. Previously followed at [facility], but has she has been wanting to transfer care to [place] but has not been able to schedule an appointment. She follows with [facility]. Per Liver Transplant office [...] with baseline creatinine ~2. Previously followed at [facility], but has she has been wanting to transfer care to [place] but has not been able to schedule an appointment. She follows with [facility]. Per Liver Transplant office [...] with baseline creatinine ~2. Previously followed at [facility], but has she has been wanting to transfer care to [place] but has not been able to schedule an appointment. She follows with [facility]. Per Liver Transplant office [...] with baseline creatinine ~2. Previously followed at [facility], but has she has been wanting to transfer care to [place] but has not been able to schedule an appointment. She follows with [facility]. Per Liver Transplant office [...] with baseline creatinine ~2. Previously followed at [facility], but has she has been wanting to transfer care to [place] but has not been able to schedule an appointment. She follows with [facility]. Per Liver Transplant office [...] with baseline creatinine ~2. Previously followed at [facility], but has she has been wanting to transfer care to [place] but has not been able to schedule an appointment. She follows with [facility]. Per Liver Transplant office [...] Transplant starting process of assuming care from [facility], but in short term they recommend patient follow up with renal transplant at [facility]. - She is NOW actively enrolled in the [employer] free patient assistance program through mar 2025 - script needs to be sent to [facility] (sent). Hyperbilirubinemia 04/16/2020 Assessment & Plan (04/16/2020 5:01 AM RAIL CAR MAINTENANCE MECHANIC): - T. Bili of 7 (last was [...] 07/25/2019 Assessment & Plan (04/16/2020 2:25 AM RAIL CAR MAINTENANCE MECHANIC): See hyperbili problem. Concern for ascites Assessment [...] 12/14/2016 Assessment & Plan (04/16/2020 2:26 AM RAIL CAR MAINTENANCE MECHANIC): - Chronic, concerned that this may be [...] kidney transplant 04/2020. 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 We would need to call [facility] to identify a contracted center ([phone]). She lives close enough to [place] that would be the most likely city she could travel to. She also noted that she could always remarry an ex- as he has insurance that may be covered at [facility]. Appreciate note from nephrology and agree with restarting oral diuretics. Can continue tacrolimus at the current dose. MRI/MRCP completed and will review with radiology to identify if any role for PTC. Assessment & Plan (04/16/2020 2:26 AM RAIL CAR MAINTENANCE MECHANIC): S/p liver tranplant in 1992 for biliary [...] meds Assessment & Plan (04/16/2020 5:01 AM RAIL CAR MAINTENANCE MECHANIC): Unclear if progression of CKD vs acute [...] Cr of 1.8. She follows with local tar processing technician Dr. Mathew and thinks her baseline is 2.1. She was at 2.3 at OSH. She took some diuretics at home and was given lasix at OSH ED. --UA, urine lytes --get records from her tar processing technician to find out baseline --random tacro level --monitor Is & Os; avoid nephrotoxins Encounters Date Type Department Care Team Description 09/26/2024 Telephone [facility] [place] at the [address] [facility] [address] [place] [address] Igor Graham MD Post-Op Call 09/25/2024 8:48 AM CDT - 09/25/2024 11:59 PM CDT Hospital Encounter [facility] [place] at the [address] [facility] [address] [place] [address] Igor Graham MD Lumbar disc disease with radiculopathy (Primary Dx); Lumbar spondylosis Discharge Disposition: Discharge to home or self care 09/19/2024 Telephone [facility] at the [address] [facility] [address] [place] [address] Igor Graham MD PMC Preprocedure 09/09/2024 SHOP/CHAP Initial Eligibility Review [facility] OP CASE MANAGEMENT [address] [place] [address] Shireen Griffin RN 08/31/2024 11:48 PM CDT - 09/06/2024 4:45 PM CDT Hospital Encounter [address] [address] Elisha Avila MD Freilich, MD Vicente Aguirre, Britta Alarcon MD Abdominal pain (Primary Dx); Liver transplant failure and rejection (HCC); Rhinovirus infection Discharge Disposition: Discharge to home or self care 08/27/2024 Telephone [facility] at the [address] [facility] [address] [place] [address] Igor Graham MD Pre Procedure 08/15/2024 10:30 AM CDT Clinical Support [address] [facility] 1st [place] [address] Brielle Syed, PhD 08/15/2024 Results Follow-Up [facility] [address] [facility] [address] Mailstop [phone] [place] [address] Taylor Kitchen, brine well operator pathology 08/14/2024 12:21 PM CDT - 08/14/2024 11:59 PM CDT Hospital Encounter [facility] [address] [facility] [address] [place] [address] Igor Graham MD Lumbar spondylosis (Primary Dx); Lumbar disc disease with radiculopathy Discharge Disposition: Discharge to home or self care 08/02/2024 Orders Only [facility] [address] [place] [address] Beatriz Lee MD History of liver transplant (HCC); History of kidney transplant 08/01/2024 Telephone [facility] Liver [address] [place], [place] [address]op [phone] [place] [address] Misty Vail RN 07/29/2024 Telephone [facility] [address] [place] [address] 340 Mailstop [phone] [place] [address] Lorena Turner 07/26/2024 2:55 PM CDT - 07/26/2024 2:56 PM CDT Emergency [facility] Emergency Department [address] [place] [address] Discharge Disposition: Left without being seen 07/24/2024 10:00 AM CDT Office Visit [facility] Orthopaedic Surgery [address] [facility] 6th [place] [address] [place] [id number] Jessee Morton MD Lumbar spine pain (Primary Dx); Adolescent idiopathic scoliosis of thoracic region; Chronic bilateral low back pain without sciatica 07/24/2024 9:45 AM CDT - 07/24/2024 11:59 PM CDT Hospital Encounter [facility] [address] [place] [address] Jessee Morton MD Lumbar spine pain; Adolescent idiopathic scoliosis of thoracic region Discharge Disposition: Discharge to home or self care 07/24/2024 Telephone [facility] [address] [facility] [address] Mailstop [phone] [place] [address] Lorena Turner 07/22/2024 Telephone [facility] [address] [facility] [address] Mailstop [phone] [place] [address] Dafne Dukes RN 07/19/2024 Telephone [facility] [address] [facility] [address] Mailstop [phone] [place] [address] Karmen Garsia RN After Hours; Abdominal Pain 07/17/2024 Telephone [facility] [address] [facility] [address] Mailstop [phone] [place] [address] Lorena Turner 07/12/2024 5:48 PM CDT - 07/12/2024 11:59 PM CDT Hospital Encounter [facility] [address] [place] [address] Discharge Disposition: Discharge to home or self care 07/12/2024 5:46 PM CDT - 07/12/2024 11:59 PM CDT Hospital Encounter [facility] [address] [place] [address] Discharge Disposition: Discharge to home or self care 07/12/2024 5:44 PM CDT - 07/12/2024 11:59 PM CDT Hospital Encounter [facility] [address] [place] [address] Discharge Disposition: Discharge to home or self care 07/12/2024 5:43 PM CDT - 07/12/2024 11:59 PM CDT Hospital Encounter [facility] [address] [place] [address] Discharge Disposition: Discharge to home or self care 07/12/2024 Telephone [facility] Nephrology [address] [facility] 5th [place] [address] [place] [address] Wilson Swift MD 07/11/2024 Telephone [facility] [address] [facility] [address] Mailstop [phone] [place] [address] Dafne Dukes RN 07/11/2024 Telephone [facility] [address] [facility] [address] Mailstop [phone] [place] [address] Yulisa Welch 07/10/2024 Telephone [facility] [address] [facility] [address] Mailstop [phone] [place] [address] Liyah Kamara 07/09/2024 8:48 AM CDT - 07/09/2024 11:59 PM CDT Hospital Encounter [facility]) [address] [place] [address] Discharge Disposition: Discharge to home or self care 07/09/2024 8:46 AM CDT - 07/09/2024 11:59 PM CDT Hospital Encounter [facility] [address] [place] [address] Discharge Disposition: Discharge to home or self care 07/09/2024 8:44 AM CDT - 07/09/2024 11:59 PM CDT Hospital Encounter [facility] [address] [place] [address] Discharge Disposition: Discharge to home or self care 07/09/2024 Telephone [facility] [address] [facility] [address] Mailstop [phone] [place] [address] Dafne Dukes RN 07/09/2024 Telephone [facility] [address] [facility] [address] Mailstop [phone] [place] [address] Yulisa Welch from Last 3 Months Surgical History Surgery Date Site/Laterality Comments [place] COLONOSCOPY FLX DX W/ROMAIN J SPEC WHEN PFRMD Complete Colonoscopy - (Added by TW Conv) COLPOSCOPY TUBAL LIGATION LIVER TRANSPLANT 03/20/1992 - 03/19/1993 SECTION x two BREAST LUMPECTOMY Left fibrous adenoma PORTOENTEROSTOMY KASAI PROCEDURE at 6 weeks old INGUINAL HERNIA REPAIR 03/20/1985 - 03/19/1986 Bilateral Medical History Medical History Date Comments Pancreatitis Depression Mid back pain Chronic pain disorder Family History Medical History Relation Name Comments [...] = 0.6 oz pur e alcohol) rare [facility] Utilities Answer Date Recorded In the past 12 months has [employer], gas, oil, or water [employer] threatened to shut off services in your [...] any clubs o r organizations such as lutheran groups, unions, fraternal or athletic groups, or [...] in the past 12 m [facility], were you homeless or living in a intermediate (including now)? No 09/03/2024 Personal Safety Answer Date Recorded Have you ever been in or are you currently in a harmful physical or emotional relationship or is someone making you feel afraid or unsafe? Denies 09/02/2024 Comments No Sex and Gender Information Value Date Recorded Sex Assigned at Not on file Legal Sex Female 10:10 PM RAIL CAR MAINTENANCE MECHANIC Gender Identity Not on file Sexual [...] 09/25/2024 9:04 AM CDT Plan of Treatment Health Maintenance Due Date Last Done Comments Breast Cancer Screening-Mammogram 1982 Varicella Vaccines (1 of 2 - 13+ 2-dose series) 10/04/1995 Regular Well Visit/Exam 18-64 2000 Pneumococcal vaccine <65 (1 of 2 - PCV) 2001 Zoster Vaccine (1 of 2) 2001 Cervical Cancer Screening 06/21/2023 06/20/2022 Influenza Vaccine (#1) 2024 Depression Screening 08/31/2025 08/31/2024, 05/29/2024, 05/29/2024 DTaP/Tdap/Td Vaccine (5 - Td or Tdap) 10/19/2031 10/18/2021, 05/10/2017, 03/20/2017, Additional history exists Hepatitis C Screening Completed 04/16/2020 HPV Vaccines Aged Out No longer eligi ble based on patient's age to complete this topic Goals Goal Patient Goal Type Associated Problems Recent Progress Patient-Stated? Author CCM Chronic Pain Care Plan Chronic Care Management On track(2024 9:02 AM CDT) Matias Arce, ANSON Note: Problem: Chronic Pain Goals: 1. [...] CDT HEPATITIS PANEL, ACUTE Routine 6:35 AM RAIL CAR MAINTENANCE MECHANIC from Last 3 Months or Most Recently Relevant to Health Maintenance Results * Imaging Lumbar/Sacral Facet Medial Branch Block Bilateral (05030) (09/25/2024 9:47 AM CDT) Narrative RAD_PACS_[facility] - 09/25/2024 9:47 AM CDT The images [...] Result Performing Organization Address City/[facility] Co de Phone Number [facility] [email or web address] [address] * Tacrolimus level trough (09/06/2024 9:48 AM CDT) [facility] Tacrolimus trough 6.4 ng/mL Comment: Interpretive Data [...] AM CDT 09/06/2024 10:15 AM CDT us Lily Rico MD LAB BLOOD ORDERABLES Final Result Performing Organization Address [facility]/ZIP Co de Phone Number [facility] [place] [address] * (ABNORMAL) Comprehensive metabolic panel (09/06/2024 9:48 AM CDT) Sodium 139 135 - 145 mmol/L Potassium, pl 4.1 3.3 - 4.9 mmol/L [facility] Comment:Hemolyzed; Potassium value may be falsely elevated by as much as 0.3-0.5 mmol/L. Suggest redraw and reanalysis. Chloride 102 97 - 110 mmol/L [facility] CO2 26 22 - 32 mmol/L [facility] Anion gap 11 2 - 15 mmol/L [facility] BUN 24 6 - 25 mg/dL [facility] Creatinine 2.04(H) 0.60 - 1.10 mg/dL [facility] Glucose 167 70 - 199 mg/dL [facility] Comment: Interpretive Data Fasting glucose [...] 2022. Calcium 8.8 8.5 - 10.3 mg/dL [facility] Bilirubin, total 0.6 0.1 - 1.2 mg/dL [facility] Protein, pl 6.1(L) 6.5 - 8.5 g/dL [facility] Albumin 3.5 3.5 - 5.0 g/dL [facility] Alk phos 241(H) 40 - 130 Units/L [facility] ALT 17 7 - 45 Units/L [facility] AST 41 10 - 45 Units/L [facility] Comment:Hemolyzed; result ma y be falsely elevated Blood 09/06/2024 9:48 AM CDT 09/06/2024 10:15 AM CDT Britta Zhang MD LAB BLOOD ORDERABLES Aniya l Result Performing Organization Address [facility] Co de Phone Number [facility] Department [place] [address] * (ABNORMAL) eGFR (09/05/2024 10:47 AM CDT) [...] ORDERABLES Aniya l Result Performing Organization Address [facility] Co de Phone Number [facility] Department [place] [address] * Differential, auto (09/05/2024 10:47 AM CDT) Neutrophil abs 3.84 1.50 - 6.50 K/cumm Imm gran abs 0.03 0.00 - 0.10 K/cumm [facility] Lymphocyte abs 1.33 0.80 - 3.30 K/cumm [facility] Monocyte abs 0.30 0.20 - 0.80 K/cumm [facility] Eosinophil abs 0.15 0.00 - 0.50 K/cumm [facility] Basophil abs 0.01 0.00 - 0.10 K/cumm [facility] Neutrophil pct 67.8 % [facility] Comment: Interpretive Data Percent cell count reference ranges are not reported, since discordance with absolute values may lead to misinterpretation of CBC data. Current Interpretive Data was last revised on 2017. Imm gran pct 0.5 % [facility] Comment: Interpretive Data Percent cell count reference ranges are not reported, since discordance with absolute values may lead to misinterpretation of CBC data. Current Interpretive Data was last revised on 2017. Lymphocyte pct 23.5 % [facility] Comment: Interpretive Data Percent cell count reference ranges are not reported, since discordance with absolute values may lead to misinterpretation of CBC data. Current Interpretive Data was last revised on 2017. Monocyte pct 5.3 % [facility] Comment: Interpretive Data Percent cell count reference ranges are not reported, since discordance with absolute values may lead to misinterpretation of CBC data. Current Interpretive Data was last revised on 2017. Eosinophil pct 2.7 % [facility] Comment: Interpretive Data Percent cell count reference ranges are not reported, since discordance with absolute values may lead to misinterpretation of CBC data. Current Interpretive Data was last revised on 2017. Basophil pct 0.2 % [facility] Comment: Interpretive Data Percent cell count reference ranges are not reported, since discordance with absolute values may lead to misinterpretation of CBC data. Current Interpretive Data was last revised on 2017. Blood 09/05/2024 10:4 7 AM CDT 09/05/2024 11:03 AM CDT us Britta Zhang MD LAB BLOOD ORDERABLES Aniya maguire Result [facility] Department [place] [address] * Tacrolimus level trough (09/05/2024 10:47 AM CDT) Tacrolimus trough 6.2 ng/mL Comment: [...] AM CDT 09/05/2024 11:04 AM CDT Narrative [facility] - 09/05/2024 1:14 PM CDT Draw exactly 12 HOURS after last dose of tacrolimus was given and just BEFORE giving next dose Britta Zhang MD LAB BLOOD ORDERABLES Aniya maguire Result [facility] Department [place] [address] * (ABNORMAL) CBC with auto differential (09/05/2024 10:47 AM CDT) [facility] WBC 5.66 3.80 - 9.90 K/cumm Hgb 11.1(L) 11.9 - 15.5 g/dL [facility] Hct 31.6(L) 35.6 - 45.5 % [facility] Plt 115(L) 150 - 400 K/cumm [facility] MPV 11.4 9.1 - 12.3 fL [facility] RBC 2.81(L) 3.90 - 5.20 M/cumm [facility] MCV 112.5(H) 81.3 - 96.4 fL [facility] MCH 39.5(H) 27.1 - 33.3 pg [facility] MCHC 35.1 32.3 - 35.7 g/dL [facility] RDW CV 14.2 11.1 - 14.9 % [facility] RDW SD 59.0(H) 35.7 - 48.1 fL [facility] NRBC abs 0.00 0.00 - 0.01 K/cumm [facility] Blood 09/05/2024 10:4 7 AM CDT 09/05/2024 11:03 AM CDT Britta Zhang MD LAB BLOOD ORDERABLES Aniya maguire Result [facility] Department [place] [address] * (ABNORMAL) Comprehensive metabolic panel (09/05/2024 10:47 AM CDT) Sodium 143 135 - 145 mmol/L Potassium, pl 4.2 3.3 - 4.9 mmol/L [facility] Chloride 102 97 - 110 mmol/L [facility] CO2 28 22 - 32 mmol/L [facility] Anion gap 13 2 - 15 mmol/L [facility] BUN 28(H) 6 - 25 mg/dL [facility] Creatinine 2.49(H) 0.60 - 1.10 mg/dL [facility] Glucose 127 70 - 199 mg/dL [facility] Comment: Interpretive Data Fasting glucose [...] 2022. Calcium 9.0 8.5 - 10.3 mg/dL [facility] Bilirubin, total 0.7 0.1 - 1.2 mg/dL [facility] Protein, pl 6.4(L) 6.5 - 8.5 g/dL [facility] Albumin 3.7 3.5 - 5.0 g/dL [facility] Alk phos 257(H) 40 - 130 Units/L [facility] ALT 18 7 - 45 Units/L [facility] AST 27 10 - 45 Units/L [facility] Blood 09/05/2024 10:4 7 AM CDT 09/05/2024 11:03 AM CDT Britta Zhang MD LAB BLOOD ORDERABLES Aniya l Result Performing Organization Address [facility]/ZIP Co de Phone Number [facility] Department [place] [address] * (ABNORMAL) eGFR (09/04/2024 5:03 AM CDT) [...] CDT Britta Zhang MD LAB BLOOD ORDERABLES Naiya l Result [facility] Department of [employer] [place] [address] * Differential, auto (09/04/2024 5:03 AM CDT) Neutrophil abs 2.68 1.50 - 6.50 K/cumm Imm gran abs 0.01 0.00 - 0.10 K/cumm [facility] Lymphocyte abs 1.03 0.80 - 3.30 K/cumm [facility] Monocyte abs 0.23 0.20 - 0.80 K/cumm [facility] Eosinophil abs 0.09 0.00 - 0.50 K/cumm [facility] Basophil abs 0.00 0.00 - 0.10 K/cumm [facility] Neutrophil pct 66.4 % [facility] Comment: Interpretive Data Percent cell count reference ranges are not reported, since discordance with absolute values may lead to misinterpretation of CBC data. Current Interpretive Data was last revised on 2017. Imm gran pct 0.2 % [facility] Comment: Interpretive Data Percent cell count reference ranges are not reported, since discordance with absolute values may lead to misinterpretation of CBC data. Current Interpretive Data was last revised on 2017. Lymphocyte pct 25.5 % [facility] Comment: Interpretive Data Percent cell count reference ranges are not reported, since discordance with absolute values may lead to misinterpretation of CBC data. Current Interpretive Data was last revised on 2017. Monocyte pct 5.7 % [facility] Comment: Interpretive Data Percent cell count reference ranges are not reported, since discordance with absolute values may lead to misinterpretation of CBC data. Current Interpretive Data was last revised on 2017. Eosinophil pct 2.2 % [facility] Comment: Interpretive Data Percent cell count reference ranges are not reported, since discordance with absolute values may lead to misinterpretation of CBC data. Current Interpretive Data was last revised on 2017. Basophil pct 0.0 % [facility] Comment: Interpretive Data Percent cell count reference ranges are not reported, since discordance with absolute values may lead to misinterpretation of CBC data. Current Interpretive Data was last revised on 2017. Blood 09/04/2024 5:03 AM CDT 09/04/2024 5:10 AM CDT us Britta Zhang MD LAB BLOOD ORDERABLES Aniya l Result [facility] Department [place] [address] * Tacrolimus level trough (09/04/2024 5:03 AM CDT) [facility] Tacrolimus trough 10.9 ng/mL Comment: Interpretive Data [...] 5:03 AM CDT 09/04/2024 5:10 AM CDT [facility] - 09/04/2024 7:32 AM CDT Draw exactly 12 HOURS after last dose of tacrolimus was given and just BEFORE giving next dose Britta Zhang MD LAB BLOOD ORDERABLES Aniya maguire Result [facility] Department [place] [address] * (ABNORMAL) CBC with auto differential (09/04/2024 5:03 AM CDT) [facility] WBC 4.04 3.80 - 9.90 K/cumm Hgb 11.8(L) 11.9 - 15.5 g/dL [facility] Hct 32.9(L) 35.6 - 45.5 % [facility] Plt 66(L) 150 - 400 K/cumm [facility] MPV 12.0 9.1 - 12.3 fL [facility] RBC 2.96(L) 3.90 - 5.20 M/cumm [facility] MCV 111.1(H) 81.3 - 96.4 fL [facility] MCH 39.9(H) 27.1 - 33.3 pg [facility] MCHC 35.9(H) 32.3 - 35.7 g/dL [facility] RDW CV 14.0 11.1 - 14.9 % [facility] RDW SD 56.5(H) 35.7 - 48.1 fL [facility] NRBC abs 0.00 0.00 - 0.01 K/cumm [facility] Blood 09/04/2024 5:03 AM CDT 09/04/2024 5:10 AM CDT us Britta Zhang MD LAB BLOOD ORDERABLES Aniya maguire Result [facility] Department [place] [address] * (ABNORMAL) Comprehensive metabolic panel (09/04/2024 5:03 AM CDT) Sodium 137 135 - 145 mmol/L Potassium, pl 4.2 3.3 - 4.9 mmol/L [facility] Chloride 100 97 - 110 mmol/L [facility] CO2 26 22 - 32 mmol/L [facility] Anion gap 11 2 - 15 mmol/L [facility] BUN 30(H) 6 - 25 mg/dL [facility] Creatinine 2.87(H) 0.60 - 1.10 mg/dL [facility] Glucose 153 70 - 199 mg/dL [facility] Comment: Interpretive Data Fasting glucose [...] 2022. Calcium 8.5 8.5 - 10.3 mg/dL [facility] Bilirubin, total 0.8 0.1 - 1.2 mg/dL [facility] Protein, pl 6.6 6.5 - 8.5 g/dL [facility] Albumin 3.5 3.5 - 5.0 g/dL [facility] Alk phos 240(H) 40 - 130 Units/L [facility] ALT 12 7 - 45 Units/L [facility] AST 31 10 - 45 Units/L [facility] Blood 09/04/2024 5:03 AM CDT 09/04/2024 5:10 AM CDT Britta Zhang MD LAB BLOOD ORDERABLES Aniya l Result Performing Organization Address City/[facility]/ZIP Co de Phone Number [facility] Department [place] [address] * (ABNORMAL) eGFR (09/03/2024 5:21 AM CDT) [...] MD LAB BLOOD ORDERABLES Aniya l Result [facility] Department [place] [address] * Differential, auto (09/03/2024 5:21 AM CDT) Neutrophil abs 3.79 1.50 - 6.50 K/cumm Imm gran abs 0.03 0.00 - 0.10 K/cumm [facility] Lymphocyte abs 0.84 0.80 - 3.30 K/cumm [facility] Monocyte abs 0.25 0.20 - 0.80 K/cumm [facility] Eosinophil abs 0.05 0.00 - 0.50 K/cumm [facility] Basophil abs 0.00 0.00 - 0.10 K/cumm [facility] Neutrophil pct 76.5 % [facility] Comment: Interpretive Data Percent cell count reference ranges are not reported, since discordance with absolute values may lead to misinterpretation of CBC data. Current Interpretive Data was last revised on 2017. Imm gran pct 0.6 % [facility] Comment: Interpretive Data Percent cell count reference ranges are not reported, since discordance with absolute values may lead to misinterpretation of CBC data. Current Interpretive Data was last revised on 2017. Lymphocyte pct 16.9 % [facility] Comment: Interpretive Data Percent cell count reference ranges are not reported, since discordance with absolute values may lead to misinterpretation of CBC data. Current Interpretive Data was last revised on 2017. Monocyte pct 5.0 % [facility] Comment: Interpretive Data Percent cell count reference ranges are not reported, since discordance with absolute values may lead to misinterpretation of CBC data. Current Interpretive Data was last revised on 2017. Eosinophil pct 1.0 % [facility] Comment: Interpretive Data Percent cell count reference ranges are not reported, since discordance with absolute values may lead to misinterpretation of CBC data. Current Interpretive Data was last revised on 2017. Basophil pct 0.0 % [facility] Comment: Interpretive Data Percent cell count reference ranges are not reported, since discordance with absolute values may lead to misinterpretation of CBC data. Current Interpretive Data was last revised on 2017. Blood 09/03/2024 5:21 AM CDT 09/03/2024 5:31 AM CDT Britta Zhang MD LAB BLOOD ORDERABLES Aniya l Result Performing Organization Address [facility] Co de Phone Number [facility] Department [place] [address] * Tacrolimus level trough (09/03/2024 5:21 AM CDT) [facility] Tacrolimus trough 17.8 ng/mL Comment: Interpretive [...] AM CDT 09/03/2024 5:31 AM CDT Narrative [facility] - 09/03/2024 9:19 AM CDT Draw exactly 12 HOURS after last dose of tacrolimus was given and just BEFORE giving next dose Britta Zhang MD LAB BLOOD ORDERABLES Aniya l Result Performing Organization Address [facility] de Phone Number [facility] Department [place] [address] * (ABNORMAL) CBC with auto differential (09/03/2024 5:21 AM CDT) [facility] WBC 4.96 3.80 - 9.90 K/cumm Hgb 11.3(L) 11.9 - 15.5 g/dL [facility] Hct 30.7(L) 35.6 - 45.5 % [facility] Plt 83(L) 150 - 400 K/cumm [facility] MPV 11.0 9.1 - 12.3 fL [facility] RBC 2.84(L) 3.90 - 5.20 M/cumm [facility] MCV 108.1(H) 81.3 - 96.4 fL [facility] MCH 39.8(H) 27.1 - 33.3 pg [facility] MCHC 36.8(H) 32.3 - 35.7 g/dL [facility] RDW CV 13.9 11.1 - 14.9 % [facility] RDW SD 54.4(H) 35.7 - 48.1 fL [facility] NRBC abs 0.00 0.00 - 0.01 K/cumm [facility] Blood 09/03/2024 5:21 AM CDT 09/03/2024 5:31 AM CDT Britta Zhang MD LAB BLOOD ORDERABLES Aniya maguire Result [facility] Department [place] [address] * (ABNORMAL) Comprehensive metabolic panel (09/03/2024 5:21 AM CDT) Sodium 138 135 - 145 mmol/L Potassium, pl 4.7 3.3 - 4.9 mmol/L [facility] Chloride 101 97 - 110 mmol/L [facility] CO2 29 22 - 32 mmol/L [facility] Anion gap 8 2 - 15 mmol/L [facility] BUN 29(H) 6 - 25 mg/dL [facility] Creatinine 2.92(H) 0.60 - 1.10 mg/dL [facility] Glucose 113 70 - 199 mg/dL [facility] Comment: Interpretive Data Fasting glucose [...] 2022. Calcium 9.2 8.5 - 10.3 mg/dL [facility] Bilirubin, total 1.1 0.1 - 1.2 mg/dL [facility] Protein, pl 6.2(L) 6.5 - 8.5 g/dL [facility] Albumin 3.4(L) 3.5 - 5.0 g/dL [facility] Alk phos 233(H) 40 - 130 Units/L [facility] ALT 13 7 - 45 Units/L [facility] AST 22 10 - 45 Units/L [facility] Blood 09/03/2024 5:21 AM CDT 09/03/2024 5:31 AM CDT Britta Zhang MD LAB BLOOD ORDERABLES Aniya l Result Performing Organization Address [facility] de Phone Number [facility] [place] [employer] [place] [address] * BK virus PCR quantitative Blood (09/02/2024 12:21 PM CDT) [facility] BKV DNA result, pl Not Detected [facility] Comment: The quantifiable range of this assay is 21.5 IU/mL to 100,000,000 IU/mL (1.33 log IU/mL to 8.00 log IU/mL). Testing was performed by the JOHNNY 6800 BKV Quantatitive Test version 2.0 ([employer] Testing performed at [facility] Current Interpretive Data was last revised on 2021. Blood 09/02/2024 12:2 1 PM CDT 09/02/2024 12:52 PM CDT Britta Zhang MD LAB MICROBIOLOGY - GENERA L ORDERABLES Final Result Performing Organization Address [facility] Co de Phone Number [facility] [place] [employer] [place] [address] [facility] * HLA Donor Specific Antibody Report (09/02/2024 12:21 PM CDT) Result [facility] Britta Zhang MD LAB BLOOD ORDERABLES Aniya l Result * HLA Antibody Screen - DSA (Class I and Class II) (09/02/2024 12:21 PM CDT) Blood 09/02/2024 12:2 1 PM CDT 09/03/2024 11:27 AM CDT Narrative [facility] - 09/03/2024 11:27 AM CDT Result [facility] Britta Zhang MD LAB BLOOD ORDERABLES Aniya l Result [facility] * Collection Task for HLA Antibody Screen (09/02/2024 12:21 PM CDT) Pathologist [facility] HLA Antibody Screen By Single Antigen Received Blood 09/02/2024 12:2 1 PM CDT 09/03/2024 10:59 AM CDT Result [facility] Britta Zhang MD LAB BLOOD ORDERABLES Aniya l Result [facility] Department [place] [address] * Cytomegalovirus (CMV) DNA PCR, quantitative Blood (09/02/2024 12:21 PM CDT) Pathologist [facility] CMV DNA Not Detected [facility] Comment: Interpretive Data: The quantifiable range of this assay is 34 IUnits/mL to 10,000,000 IUnits/mL (1.53 log IUnits/mL to 7.0 log IUnits/mL). Testing was performed by the JOHNNY 6800 CMV Test ([employer] Testing performed at [facility]. Current interpretive data was last revised on 2020. Blood 09/02/2024 12:2 1 PM CDT 09/02/2024 12:52 PM CDT Britta Zhang MD LAB MICROBIOLOGY - GENERA L ORDERABLES Final Result Performing Organization Address City/[facility]/ZIP Co de Phone Number [facility] [place] [address] [facility] * (ABNORMAL) eGFR (09/02/2024 12:21 PM CDT) [...] LAB BLOOD ORDERABLES Aniya l Result [facility] Department [place] [address] * Blood culture Blood (09/02/2024 12:21 PM CDT) Report Final Report: No growth Blood 09/02/2024 12:2 1 PM CDT 09/02/2024 1:40 PM CDT Narrative [facility] - 09/06/2024 4:00 PM CDT From a [...] been verified by the [facility]. For questions about this culture, contact the Microbiology Laboratory at [phone]. Interpretive data was last revised on 24. us Britta Zhang MD LAB MICROBIOLOGY - GENERA L ORDERABLES Final Result [facility] Department [place] [address] * Blood culture Blood (09/02/2024 12:21 PM CDT) Report Final Report: No growth Blood 09/02/2024 12:2 1 PM CDT 09/02/2024 1:40 PM CDT Narrative [facility] - 09/06/2024 4:00 PM CDT Collection->Peripheral 1. [...] been verified by the [facility]. For questions about this culture, contact the Microbiology Laboratory at [phone]. Interpretive data was last revised on 24. us Britta Zhang MD LAB MICROBIOLOGY - GENERA L ORDERABLES Final Result [facility] Department [place] [address] * (ABNORMAL) Renal function panel (09/02/2024 12:21 PM CDT) Sodium 137 135 - 145 mmol/L Potassium, pl 3.9 3.3 - 4.9 mmol/L [facility] Chloride 97 97 - 110 mmol/L [facility] CO2 31 22 - 32 mmol/L [facility] Anion gap 9 2 - 15 mmol/L [facility] BUN 28(H) 6 - 25 mg/dL [facility] Creatinine 2.89(H) 0.60 - 1.10 mg/dL [facility] Glucose 162 70 - 199 mg/dL [facility] Comment: Interpretive Data Fasting glucose [...] 2022. Calcium 9.7 8.5 - 10.3 mg/dL [facility] Phosphorus, pl 4.1 2.3 - 4.5 mg/dL [facility] Albumin 3.5 3.5 - 5.0 g/dL [facility] Blood 09/02/2024 12:2 1 PM CDT 09/02/2024 12:42 PM CDT us Britta Zhang MD LAB BLOOD ORDERABLES Aniya l Result Performing Organization Address City/[facility]/ZIP Co de Phone Number [facility] [place] [address] * (ABNORMAL) eGFR (09/02/2024 5:16 AM CDT) [...] Valiente MD LAB BLOOD ORDERABLES Final Result [facility] Department [place] [address] * Differential, auto (09/02/2024 5:16 AM CDT) Neutrophil abs 3.97 1.50 - 6.50 K/cumm Imm gran abs 0.02 0.00 - 0.10 K/cumm [facility] Lymphocyte abs 1.10 0.80 - 3.30 K/cumm [facility] Monocyte abs 0.24 0.20 - 0.80 K/cumm [facility] Eosinophil abs 0.11 0.00 - 0.50 K/cumm [facility] Basophil abs 0.01 0.00 - 0.10 K/cumm [facility] Neutrophil pct 72.8 % [facility] Comment: Interpretive Data Percent cell count reference ranges are not reported, since discordance with absolute values may lead to misinterpretation of CBC data. Current Interpretive Data was last revised on 2017. Imm gran pct 0.4 % [facility] Comment: Interpretive Data Percent cell count reference ranges are not reported, since discordance with absolute values may lead to misinterpretation of CBC data. Current Interpretive Data was last revised on 2017. Lymphocyte pct 20.2 % [facility] Comment: Interpretive Data Percent cell count reference ranges are not reported, since discordance with absolute values may lead to misinterpretation of CBC data. Current Interpretive Data was last revised on 2017. Monocyte pct 4.4 % [facility] Comment: Interpretive Data Percent cell count reference ranges are not reported, since discordance with absolute values may lead to misinterpretation of CBC data. Current Interpretive Data was last revised on 2017. Eosinophil pct 2.0 % [facility] Comment: Interpretive Data Percent cell count reference ranges are not reported, since discordance with absolute values may lead to misinterpretation of CBC data. Current Interpretive Data was last revised on 2017. Basophil pct 0.2 % [facility] Comment: Interpretive Data Percent cell count reference ranges are not reported, since discordance with absolute values may lead to misinterpretation of CBC data. Current Interpretive Data was last revised on 2017. Blood 09/02/2024 5:16 AM CDT 09/02/2024 5:32 AM CDT us Bailee Valiente MD LAB BLOOD ORDERABLES Final Result Performing Organization Address [facility] Co de Phone Number [facility] Department [place] [address] * Tacrolimus level trough (09/02/2024 5:16 AM CDT) [facility] Tacrolimus trough 17.0 ng/mL Comment: Interpretive Data [...] Result Performing Organization Address City/[facility] Co de Phone Number [facility] Department [place] [address] * (ABNORMAL) CBC with auto differential (09/02/2024 5:16 AM CDT) [facility] WBC 5.45 3.80 - 9.90 K/cumm Hgb 11.7(L) 11.9 - 15.5 g/dL [facility] Hct 32.3(L) 35.6 - 45.5 % [facility] Plt 98(L) 150 - 400 K/cumm [facility] MPV 11.4 9.1 - 12.3 fL [facility] RBC 2.95(L) 3.90 - 5.20 M/cumm [facility] MCV 109.5(H) 81.3 - 96.4 fL [facility] MCH 39.7(H) 27.1 - 33.3 pg [facility] MCHC 36.2(H) 32.3 - 35.7 g/dL [facility] RDW CV 13.9 11.1 - 14.9 % [facility] RDW SD 56.6(H) 35.7 - 48.1 fL [facility] NRBC abs 0.00 0.00 - 0.01 K/cumm [facility] Blood 09/02/2024 5:16 AM CDT 09/02/2024 5:32 AM CDT us Bailee Valiente MD LAB BLOOD ORDERABLES Final Result [facility] Department [place] [address] * (ABNORMAL) Comprehensive metabolic panel (09/02/2024 5:16 AM CDT) Sodium 137 135 - 145 mmol/L Potassium, pl 4.1 3.3 - 4.9 mmol/L [facility] Chloride 98 97 - 110 mmol/L [facility] CO2 32 22 - 32 mmol/L [facility] Anion gap 7 2 - 15 mmol/L [facility] BUN 29(H) 6 - 25 mg/dL [facility] Creatinine 3.05(H) 0.60 - 1.10 mg/dL [facility] Glucose 185 70 - 199 mg/dL [facility] Comment: Interpretive Data Fasting glucose [...] 2022. Calcium 9.0 8.5 - 10.3 mg/dL [facility] Bilirubin, total 1.0 0.1 - 1.2 mg/dL [facility] Protein, pl 6.3(L) 6.5 - 8.5 g/dL [facility] Albumin 3.8 3.5 - 5.0 g/dL [facility] Alk phos 223(H) 40 - 130 Units/L [facility] ALT 11 7 - 45 Units/L [facility] AST 24 10 - 45 Units/L [facility] Blood 09/02/2024 5:16 AM CDT 09/02/2024 5:32 AM CDT us Bailee Valiente MD LAB BLOOD ORDERABLES Final Result Performing Organization Address [facility]/ZIP Co de Phone Number [facility] Department [place] [address] * Troponin I high-sensitivity 2-hour (09/01/2024 2:58 AM CDT) Trop I hs 5 <=17 ng/L Comment: Interpretive Data For further hscTnI resources including the diagnostic algorithm and an aid in interpretation, copy and paste this link: https://bjhlab.testcatalog.org/show/hsTrop-1 Current Interpretive Data last revised 2019. Trop I hs delta 0 ng/L [facility] Trop I hs interp Insignificant [facility] Blood 09/01/2024 2:58 AM CDT 09/01/2024 3:13 AM CDT us Diana Cassidy MD LAB BLOOD ORDERABLES Fi nal Result [facility] Department [place] [address] * ECG 12-LEAD (09/01/2024 2:53 AM CDT) Narrative [facility] - 09/01/2024 2:53 AM CDT Elisha Avila MD 09/01/2024 3:24 AM ECG 12 lead Date/Time: 09/01/2024 2:53 AM Performed by: Elisha Avila MD Authorized by: Diana Cassidy MD us Diana Cassidy MD ECG ORDERABLES Final R esult [facility] * XR Chest PA Lateral 2 Views [...] it. Electronically signed by: Jaime Sim M.D. us Diana Cassidy MD IMG XR PROCEDURES Final [...] and read back by: Flower Moser MD ([phone]) on 09/02/2024 03:01:57 by: Radu Helm MT Direct Specimen Exam Stain: Gram Positive Cocci in clusters Time to culture positivity (anaerobic media): 21.4 hours Notification of: Gram Positive Cocci in clusters called to and read back by: Flower Moser MD ([phone]) on 09/02/2024 01:01:22 by: Radu Helm MT [facility] Report Final Report: Staphylococcus epidermidis Single blood culture positive for this microorganism. Isolate is a possible contaminant. If a similar isolate is recovered from a second blood culture collected within 3 days of this culture, both will be evaluated and, if determined to be the same species, antimicrobial susceptibility testing will be performed. (.) [facility] Organism STAPHYLOCOCCUS EPIDERMIDIS [facility] Blood 09/01/2024 2:18 AM CDT 09/01/2024 2:43 AM CDT Narrative [facility] - 09/06/2024 12:48 PM CDT From a [...] been verified by the [facility]. For questions about this culture, contact the Microbiology Laboratory at [phone]. Interpretive data was last revised on 24. us Diana Cassidy MD LAB MICROBIOLOGY - GENE RAL ORDERABLES Final Result ALEK Marley [facility] Department [place] [address] * US Renal Transplant W Dopplers (09/01/2024 [...] Soto Mena M.D., Ph.D Diana Cassidy MD [facility] PROCEDURES Final Result * (ABNORMAL) Respiratory pathogen panel Nasopharyngeal (09/01/2024 12:58 AM CDT) Influenza A RNA Not Detected Not Detected Influenza B RNA Not Detected Not Detected [facility] RSV RNA Not Detected Not Detected [facility] COVID-19 RNA Not Detected Not Detected [facility] Coronavirus 229E RNA Not Detected Not Detected [facility] Coronavirus HKU1 RNA Not Detected Not Detected [facility] Coronavirus NL63 RNA Not Detected Not Detected [facility] Coronavirus OC43 RNA Not Detected Not Detected [facility] Adenovirus DNA Not Detected Not Detected [facility] Metapneumovirus RNA Not Detected Not Detected [facility] Rhinovirus/Enterov irus RNA Detected(A) Not Detected [facility] Parainfluenza 1 RNA Not Detected Not Detected [facility] Parainfluenza 2 RNA Not Detected Not Detected [facility] Parainfluenza 3 RNA Not Detected Not Detected [facility] Parainfluenza 4 RNA Not Detected Not Detected [facility] B. pertussis DNA Not Detected Not Detected [facility] B. parapertussis DNA Not Detected Not Detected [facility] C. pneumoniae DNA Not Detected Not Detected [facility] M. pneumoniae DNA Not Detected Not Detected [facility] Nasopharyngeal 09/01/2024 12 :58 AM CDT 09/01/2024 2:52 AM CDT Narrative [facility] - 09/01/2024 3:48 AM CDT Is the Patient experiencing symptoms consistent with COVID?->Yes Surveillance testing for transplant patient?->No Interpretive Data The [employer] FilmArray Respiratory Panel (RP2.1) assay is a [...] assay has FDA clearance for testing of [employer] swabs. The performance of additional specimen types has been assessed by the performing laboratory. The performance characteristics of this assay have been determined by [facility] Molecular Infectious Disease Laboratory. Current interpretive data was last revised on 21. Diana Cassidy MD LAB MICROBIOLOGY - GENE RAL ORDERABLES Final Result Performing Organization Address [facility] [place] [address] * Troponin I high-sensitivity series (baseline, 2hr, 4hr, 6hr) (09/01/2024 12:57 AM CDT) Pathologist [facility] Trop I hs 5 <=17 ng/L Comment: Interpretive Data For further hscTnI resources including the diagnostic algorithm and an aid in interpretation, copy and paste this link: https://bjhlab.testcatalog.org/show/hsTrop-1 Current Interpretive Data last revised 2019. Blood 09/01/2024 12:5 7 AM CDT 09/01/2024 1:20 AM CDT Diana Cassidy MD LAB BLOOD ORDERABLES Fi nal Result Performing Organization Address [facility] Co de Phone Number [facility] [place] [address] * Sepsis Lactate w/ Reflex (09/01/2024 12:57 AM CDT) [facility] Sepsis Lactate 1.8 0.7 - 2.0 mmol/L Blood 09/01/2024 12:5 7 AM CDT 09/01/2024 1:14 AM CDT Diana Cassidy MD LAB BLOOD ORDERABLES Fi nal Result Performing Organization Address [facility] Co de Phone Number [facility] [place] [address] * (ABNORMAL) eGFR (09/01/2024 12:57 AM CDT) Pathologist [facility] eGFR 26(L) >=60 mL/min/1. 73 m2 Comment: [...] Result Performing Organization Address City/[facility] Co de Phone Number [facility] [place] [address] * Differential, auto (09/01/2024 12:57 AM CDT) Neutrophil abs 4.42 1.50 - 6.50 K/cumm Imm gran abs 0.03 0.00 - 0.10 K/cumm [facility] Lymphocyte abs 1.17 0.80 - 3.30 K/cumm [facility] Monocyte abs 0.38 0.20 - 0.80 K/cumm [facility] Eosinophil abs 0.10 0.00 - 0.50 K/cumm [facility] Basophil abs 0.02 0.00 - 0.10 K/cumm [facility] Neutrophil pct 72.3 % [facility] Comment: Interpretive Data Percent cell count reference ranges are not reported, since discordance with absolute values may lead to misinterpretation of CBC data. Current Interpretive Data was last revised on 2017. Imm gran pct 0.5 % [facility] Comment: Interpretive Data Percent cell count reference ranges are not reported, since discordance with absolute values may lead to misinterpretation of CBC data. Current Interpretive Data was last revised on 2017. Lymphocyte pct 19.1 % [facility] Comment: Interpretive Data Percent cell count reference ranges are not reported, since discordance with absolute values may lead to misinterpretation of CBC data. Current Interpretive Data was last revised on 2017. Monocyte pct 6.2 % [facility] Comment: Interpretive Data Percent cell count reference ranges are not reported, since discordance with absolute values may lead to misinterpretation of CBC data. Current Interpretive Data was last revised on 2017. Eosinophil pct 1.6 % [facility] Comment: Interpretive Data Percent cell count reference ranges are not reported, since discordance with absolute values may lead to misinterpretation of CBC data. Current Interpretive Data was last revised on 2017. Basophil pct 0.3 % [facility] Comment: Interpretive Data Percent cell count reference ranges are not reported, since discordance with absolute values may lead to misinterpretation of CBC data. Current Interpretive Data was last revised on 2017. Blood 09/01/2024 12:5 7 AM CDT 09/01/2024 1:20 AM CDT us Diana Cassidy MD LAB BLOOD ORDERABLES Fi nal Result [facility] Department [place] [address] * (ABNORMAL) Urinalysis reflex to microscopic and culture Urine, bladder (09/01/2024 12:57 AM CDT) Color, ur Yellow Yellow Clarity, ur Clear Clear [facility] Specific gravity, ur 1.020 1.003 - 1.030 [facility] pH, urine 5.5 [facility] Comment: Interpretive Data U rine pH is affected by diet, medications, systemic acid-base disturbances, and renal tubular function. pH may affect urinary stone formation. For example, urine pH below 6.0 may help reduce the tendency for calcium phosphate stones and pH greater than 6.0 may reduce the tendency for uric acid stone formation. Source: [facility] Current Interpretive Data was last revised on 2017 Protein, ur ql Trace Negative [facility] Glucose, ur ql Negative Negative [facility] Ketones, ur Trace Negative [facility] Bilirubin, ur Negative Negative [facility] Blood, ur Negative Negative [facility] Urobilinogen, ur 2.0(A) <2.0 mg/dL [facility] Nitrite, ur Negative Negative [facility] Leukocyte esterase, ur Negative Negative [facility] UA reflex comment Reflex conditions for microscopic UA and culture not met. [facility] Urine, bladder 09/01/2024 12 :57 AM CDT 09/01/2024 1:14 AM CDT Diana Cassidy MD LAB MICROBIOLOGY - [facility] ORDERABLES Final Result [facility] Department [place] [address] * (ABNORMAL) CBC with auto differential (09/01/2024 12:57 AM CDT) WBC 6.12 3.80 - 9.90 K/cumm Hgb 12.7 11.9 - 15.5 g/dL [facility] Hct 35.2(L) 35.6 - 45.5 % [facility] Plt 115(L) 150 - 400 K/cumm [facility] MPV 11.0 9.1 - 12.3 fL [facility] RBC 3.20(L) 3.90 - 5.20 M/cumm [facility] MCV 110.0(H) 81.3 - 96.4 fL [facility] MCH 39.7(H) 27.1 - 33.3 pg [facility] MCHC 36.1(H) 32.3 - 35.7 g/dL [facility] RDW CV 14.2 11.1 - 14.9 % [facility] RDW SD 57.3(H) 35.7 - 48.1 fL [facility] NRBC abs 0.00 0.00 - 0.01 K/cumm [facility] Blood 09/01/2024 12:5 7 AM CDT 09/01/2024 1:20 AM CDT Diana Cassidy MD LAB BLOOD ORDERABLES Fi nal Result Performing Organization Address [facility] de Phone Number [facility] [employer] [place] [address] * Tacrolimus level random (09/01/2024 12:57 AM [...] [facility]/ZIP Co de Phone Number [facility] [place] [employer] [place] [address] * Blood culture Blood (09/01/2024 12:57 AM CDT) Report Final Report: No growth Blood 09/01/2024 12:5 7 AM CDT 09/01/2024 1:35 AM CDT Narrative ALEK RAIN - 09/05/2024 7:00 AM CDT Collection->Peripheral 1. [...] been verified by the [facility]. For questions about this culture, contact the Microbiology Laboratory at [phone]. Interpretive data was last revised on 24. Diana Cassidy MD LAB MICROBIOLOGY - GENE RAL ORDERABLES Final Result [facility] Department [place] [address] * Phosphorus (09/01/2024 12:57 AM CDT) Phosphorus, pl 2.9 2.3 - 4.5 mg/dL Blood 09/01/2024 12:5 7 AM CDT 09/01/2024 1:20 AM CDT Diana Cassidy MD LAB BLOOD ORDERABLES Fi nal Result [facility] Department [place] [address] * Magnesium (09/01/2024 12:57 AM CDT) [facility] Magnesium 1.5 1.4 - 2.5 mg/dL Blood 09/01/2024 12:5 7 AM CDT 09/01/2024 1:20 AM CDT Diana Cassidy MD LAB BLOOD ORDERABLES Fi nal Result [facility] [place] [address] * Lipase (09/01/2024 12:57 AM CDT) [facility] Lipase 19 10 - 99 Units/L Blood 09/01/2024 12:5 7 AM CDT 09/01/2024 1:20 AM CDT Diana Cassidy MD LAB BLOOD ORDERABLES Fi nal Result Performing Organization Address [facility]/ZIP Co de Phone Number [facility] [place] [address] * (ABNORMAL) Comprehensive metabolic panel (09/01/2024 12:57 AM CDT) [facility] Sodium 138 135 - 145 mmol/L Potassium, pl 4.5 3.3 - 4.9 mmol/L [facility] Comment:Hemolyzed; Potassium value may be falsely elevated by as much as 0.3-0.5 mmol/L. Suggest redraw and reanalysis. Chloride 105 97 - 110 mmol/L [facility] CO2 24 22 - 32 mmol/L [facility] Anion gap 9 2 - 15 mmol/L [facility] BUN 21 6 - 25 mg/dL [facility] Creatinine 2.34(H) 0.60 - 1.10 mg/dL [facility] Glucose 89 70 - 199 mg/dL [facility] Comment: Interpretive Data Fasting glucose [...] 2022. Calcium 8.7 8.5 - 10.3 mg/dL [facility] Bilirubin, total 1.1 0.1 - 1.2 mg/dL [facility] Protein, pl 7.1 6.5 - 8.5 g/dL [facility] Albumin 3.9 3.5 - 5.0 g/dL [facility] Alk phos 257(H) 40 - 130 Units/L [facility] ALT 14 7 - 45 Units/L [facility] AST 37 10 - 45 Units/L [facility] Comment:Hemolyzed; result ma y be falsely elevated Blood 09/01/2024 12:5 7 AM CDT 09/01/2024 1:20 AM CDT Diana Cassidy MD LAB BLOOD ORDERABLES Fi nal Result [facility] Department [place] [address] * Surgical pathology (08/02/2024 9:18 AM CDT) Tissue (Miscellaneous) 08/02/2024 9:18 AM CDT 08/02/2024 9:18 AM CDT Narrative [facility] - 08/14/2024 2:01 PM CDT EPIC results best viewed via link to PDF [facility] Pathology Consult Service Alan Doreen Juany [address] [place] [address], [address], [place] [address] Note to Patients: This report [...] SURGICAL PATHOLOGY REPORT * Consult Report * [facility] is providing an additional review of previously collected tissue. FINAL Patient Name: MISHA BROWNE Address: [address] [place] [id number] Gender: F : 1980 (Age: 43) [facility] #: [id number] Patient Type: WILL Location: UNKNOWN Taken: 08/02/2024 Received: 08/02/2024 Accessioned: 08/05/2024 Reported: 08/14/2024 Physician(s): Beatriz Lee M.D. [facility] Department of Pathology [address] [place] [address] [place] [address] P: [phone] F: [phone] Diagnosis: Consult material received from [place], [place] (OSC: [id number]; 11/17/2023) A. 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 Liver, allograft, approximately 3 years 6 months, biopsy - No evidence of acute cellular rejection - Mild sinusoidal dilitation - No significant steatosis, fibrosis (trichrome), or ductal injury - Copper stain is negative - No significant stainable iron - No alpha 1 globules on PASD [facility]/08/13/2024 12:55 By this signature, I attest that the above diagnosis is based upon my personal examination of the slides(and/or other material indicated in the diagnosis). Kayla Burdick M.D. Report Electronically Reviewed and Signed Out By Kayla Burdick M.D. 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 Course was complicated by biopsy [...] show moderate inflammatory infiltrate. There is patchy [id number] tubulitis. Small arteries and arterioles show mild [...] Received for review are ten slides labeled [id number], and nine slides labeled [id number], accompanied by a corresponding pathology report. The material originates from [facility], [place], [place]. Selected slide(s) may be digitally scanned [...] occasional mononuclear cells Arteriolar hyalinosis (ah): ah1 [id number] PAS-positive hyaline thickening in at least one arteriole Polyomavirus Nephropathy: Negative for Polyomavirus C4d scoring: c4d0 Negative ptcml (PTC multilayering) (requires EM): N/A - EM not performed By this signature, I attest that the above diagnosis is based upon my personal examination of the slides(and/or other material). Esthela E. Limia, MMckenna Cabrera M.D. Any testing required for diagnostic purposes was performed in the Department of Pathology and Immunology at [facility], [address] [place] [id number] CLIA # [id number] The performance characteristics of the testing cited in this report (if any) were determined by the [facility] Department of Pathology and Immunology [facility], as part of an ongoing research associate quality control qc program and in compliance with federally mandated [...] and the performance characteristics determined by the [facility], [facility] Department of Pathology and Immunology. It has not been cleared or approved by the U.S. Food and Drug Administration. Any test designated as LDT was developed and its performance characteristics determined by [facility]. It has not been cleared or approved by the FDA. This test is used for clinical purposes and should not be regarded as investigational or for research. Report images and/or scanned reports, if included, only viewable in PDF version of report. us Beatriz Lee MD LAB PATHOLOGY ORDERA BLES Final Result [facility] [address] [address] * XR Scoliosis 6 or More Views [...] listhesis. No fracture. Procedure Note Carlos Hayes, - 07/24/2024 EXAMINATION: XR SCOLIOSIS 6 OR [...] only and have not been reviewed by [facility] Radiology. There will be no report generated by a [facility] Radiologist. Narrative [email or web address] - 07/12/2024 5:48 PM CDT EXAMINATION: Images For Reference Purposes Only Jessee Morton MD IMG CT PROCEDURES Final Re sult Performing Organization Address [facility] de Phone Number [email or web address] * Neuro CT Outside Reference (07/12/2024 5:46 PM CDT) Impressions [email or web address] - 07/12/2024 5:46 PM CDT These images are for Reference purposes only and have not been reviewed by [facility]. There will be no report generated by a [facility] Radiologist. Narrative [email or web address] - 07/12/2024 5:46 PM CDT EXAMINATION: Images For Reference Purposes Only Jessee Morton MD IMG CT PROCEDURES Final Re sult Performing Organization Address [facility] de Phone Number [email or web address] * Neuro MR Outside Reference (07/12/2024 5:44 PM CDT) Impressions [email or web address] - 07/12/2024 5:44 PM CDT These images are for Reference purposes only and have not been reviewed by [facility]. There will be no report generated by a [facility] Radiologist. Narrative [facility] - 07/12/2024 5:44 PM CDT EXAMINATION: Images For Reference Purposes Only Jessee Morton MD IMG MRI PROCEDURES Final R esult Performing Organization Address [facility] de Phone Number [email or web address] * Neuro MR Outside Reference (07/12/2024 5:43 PM CDT) Impressions [email or web address] - 07/12/2024 5:43 PM CDT These images are for Reference purposes only and have not been reviewed by [facility]. There will be no report generated by a [facility] Radiologist. Narrative [email or web address] - 07/12/2024 5:43 PM CDT EXAMINATION: Images For Reference Purposes Only Jessee Morton MD IMG MRI PROCEDURES Final R esult Performing Organization Address [facility] de Phone Number [email or web address] * XR Outside Reference (07/09/2024 8:48 AM CDT) Impressions [email or web address] - 07/09/2024 8:48 AM CDT These images are for Reference purposes only and have not been reviewed by [facility]. There will be no report generated by a [facility] Radiologist. Narrative [email or web address] - 07/09/2024 8:48 AM CDT EXAMINATION: Images For Reference Purposes Only Jessee Morton MD IMG XR PROCEDURES Final Re sult Performing Organization Address [facility] de Phone Number [email or web address] * XR Outside Reference (07/09/2024 8:46 AM CDT) Impressions [email or web address] - 07/09/2024 8:46 AM CDT These images are for Reference purposes only and have not been reviewed by [facility]. There will be no report generated by a [facility] Radiologist. Narrative [facility] - 07/09/2024 8:46 AM CDT EXAMINATION: Images For Reference Purposes Only Jessee Morton MD IMG XR PROCEDURES Final Re sult Performing Organization Address [facility] de Phone Number [email or web address] * XR Outside Reference (07/09/2024 8:44 AM CDT) Impressions [email or web address] - 07/09/2024 8:44 AM CDT These images are for Reference purposes only and have not been reviewed by [facility]. There will be no report generated by a [facility] Radiologist. Narrative [email or web address] - 07/09/2024 8:44 AM CDT EXAMINATION: Images For Reference Purposes Only us Jessee Morton MD IMG XR PROCEDURES Final Re sult Performing Organization Address City/[facility]/ZIP Co de Phone Number [email or web address] * Hepatitis panel, acute (04/16/2020 6:35 AM [employer]TE[employer] MECHANIC) Hep A IgM Nonreactive Nonreactive [facility] Comment: Interpretive Data: If Hep A IgM Ab is reported as Equivocal, a new sample should be drawn in two weeks for testing. Current interpretive data was last revised on 19. Hep B core IgM Nonreactive Nonreactive [facility] Comment: Interpretive Data If HepB Core IgM Ab is reported as Equivocal, a new sample should be drawn in two weeks for testing. Current interpretive data was last revised on 19. Hep C Ab Nonreactive Nonreactive [facility] Comment:Antibodies to HCV no t detected. Does NOT exclude the possibility of recent exposure to HCV. HepBsAg Nonreactive Nonreactive [facility] Blood specimen (specimen) 04/16/2020 6:35 AM [employer]TE[employer] MECHANIC 04/16/2020 7:34 AM [employer] MECH[employer]IC us Jacob Gates MD LAB MICROBIOLOGY - GENER [facility] ORDERABLES Final Result Performing Organization Address [facility] Co de Phone Number [facility] Department [place] [address] from Last 3 Months or Most Recently Relevant to Health Maintenance Insurance [employer] OPEN ACCESS [facility] [place] [address] [employer]IG[employer] [place] Advance Directives For more information, please contact: [phone] * Full Code (Latest Code Status on [...] 6:15 AM 07/25/2019 11:51 PM Care Teams Inspector Precision Assembly Relationship Specialty Start Date End Date Lyly Fiore NP [address] [place] [address] PCP - General Nurse Practitioner 05/29/24 Beatriz Lee MD [address] [place] [address] Referring Physician Gastroenterology 07/25/19 Taylor Kitchen, geriatric nurse assistantRoundhouse Worker 05/29/24
--- OUTSIDE RECORDS SUMMARY | 2024-10-05 20:31 | XMS_ITS | Encounter Summary ---
Author Organization [facility] Address [address] [place] [address] Care Team Providers Care Final Assembly And Packing Supervisor Name Role Phone Hermes Ramirez MD Primary Care Provider Reason for Visit * Reason Comments Clinical Social Work Intervention elsa dixon Encounter Details Date Type Department Care Team (Latest Contact Info) Description 01/19/2022 Patient Outreach [place] [facility] [address] [facility] [address] [place] [address] Ho Humphreys LCSW [address] [facility] [address] [place], [place] [id number] Clinical Social Work Intervention (scheduling) Social History Tobacco Use Types Packs/Day Years [...] on file 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 No / Unsure 01/13/2022 2:28 PM CDT documented as of this encounter Plan of Treatment Not on file documented as of this encounter Visit Diagnoses Not on filedocumented in this encounter Additional Health Concerns Assessment Noted Time PHQ-9 Depression Total Score: 6 12/08/19 22 3:08 PM CDT PHQ-2 Depression Total Score: 2 12/08/19 22 3:08 PM CDT documented as of this encounter Care Teams Final Assembly And Packing Supervisor Relationship Specialty Start Date End Date Hermes Ramirez MD [address] [place], [place] [id number] PCP - General 05/28/20 documented as of this encounter
--- OUTSIDE RECORDS SUMMARY | 2024-10-05 20:31 | XMS_ITS | Encounter Summary ---
Author Organization [facility] Address [address] [place] [address] Care Team Providers Care Farm Tractor Operator Name Role Phone Hermes Ramirez MD Primary Care Provider Encounter Details Date Type Department Care Team (Late st Contact Info) Description 07/16/2022 Telephone [facility] [address] [facility] [address] [place], [place] [id number] Hollie Eugene RN Social History Tobacco Use Types Packs/Day [...] Currently or in the past 3 m [facility], have you worried your food would run out before you had money to buy more? No 2021 In the past 12 months, have you run out of food or been unable to get more? 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 No / Unsure 07/13/2022 3:03 PM CDT documented as of this encounter Progress Notes * Hollie Eugene RN - 07/16/2022 6:43 PM CDT Patient called the sales operations consultant answering service. Per patient she is having body aches, low grade feverof 99.4, continued chest wall pain from two weeks ago, cough with green sputum, right side throat pain and decreased UOP. States Tylenol doesn???t help. Encouraged water intake. Denies SOB. Denies issue with taking her medications or PO intake. Notified Dr. Nixon. Instructed patient to go to local ER if fevers increase or if respira tory symptoms worsen to have screening with CXR. Patient verbalized understanding. Encouraged patient to call back with any concerns. documented in this encounter Plan of Treatment Not on file documented as of this encounter Visit Diagnoses Not on filedocumented in this encounter Additional Health Concerns Assessment Noted Time PHQ-9 Depression Total Score: 6 12/08/19 22 3:08 PM CDT PHQ-2 Depression Total Score: 0 06/23/19 23 10:20 AM CDT documented as of this encounter Care Teams Farm Tractor Operator Relationship Specialty Start Date End Date Hermes Ramirez MD [address] [place] [address] PCP - General 05/28/20 documented as of this encounter
--- OUTSIDE RECORDS SUMMARY | 2024-10-05 20:31 | XMS_ITS | Clinical Summary ---
Author Organization [facility] Address Formerly [facility] [address] Care Team Providers Care Barratte Operator Name Role Phone ChelsyLyly schaefer ELISA Primary Care Provider [phone] Allergies Active Allergy Reactions Criticality Noted Date [...] by mouth daily. 60 tablet 4 Active amoxicillin-cla vulanate (AUGMENTIN) 875-125 MG tablet Take 1 tablet (875 mg total) by mouth 2 (two) times daily for 10 days. 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) 10/24/2016 Chronic kidney disease 10/24/2016 Anemia, unspecified 05/04/2012 Benign gestational thrombocytopenia ([facility]/HCC) History of cone biopsy of cervix 01/04/2012 History of liver transplant ([facility]) Acute pharyngitis 11/19/2010 Abdominal pain 11/13/2010 Aphthous ulcer 11/01/2010 Anxiety 07/21/2010 Encounters Date Type Department Care Team Description 09/14/2024 12:28 AM CDT - 09/14/2024 1:50 AM CDT Emergency [facility] [address] [place] [address] [place] [address] Zack Kc MD Back Pain; Headache Discharge Disposition: Home or Self Care (Routine Discharge) 09/13/2024 Travel 08/28/2024 10:52 PM CDT - 08/29/2024 3:30 AM CDT Emergency [facility] [address] [place] [address] Radu Loya MD Cough; Vomiting; URI Discharge Disposition: Home or Self Care (Routine Discharge) 08/28/2024 Travel 08/26/2024 10:28 PM CDT - 08/27/2024 12:30 AM CDT Emergency [facility] [address] [place] [address] Karmen Byrd PA Medical Screening Discharge Disposition: Home or Self Care (Routine Discharge) 08/26/2024 Travel 08/08/2024 10:19 PM CDT - 08/08/2024 10:39 PM CDT Emergency [facility] [address] [place] [address] Roopa Damon NP Back Pain Discharge Disposition: Home or Self Care (Routine Discharge) 08/08/2024 Travel 08/07/2024 11:33 PM CDT - 08/08/2024 12:45 AM CDT Emergency [facility] [address] [place] [address] Danish Menjivar MD Back Pain; Urinary Symptoms Discharge Disposition: Home or Self Care (Routine Discharge) 08/07/2024 Travel 07/31/2024 1:03 PM CDT - 07/31/2024 2:31 PM CDT Emergency [facility] [address] [place] [address] Back Pain; Leg Pain Discharge Disposition: Home or Self Care (Routine Discharge) 07/31/2024 12:15 AM CDT - 07/31/2024 1:13 AM CDT [facility] [address] [place] [address] Back Pain Discharge Disposition: Left Against Medical Advice 07/31/2024 Travel from Last 3 Months Family History [...] any time in the past 12 m [facility], were you homeless or living in a retirement (including now)? No 02/20/2024 Comments No Sex and Gender Information Value Date Recorded Sex Assigned at Female 04/05/2024 4:26 PM BAR TACKER Legal Sex Female 9:15 PM BAR TACKER Gender Identity Not on file Sexual Orientation Not on file Last Filed Vital Signs Vital Sign Reading Time Taken Comments Blood Pressure 159/89 09/14/2024 1:00 AM CDT Pulse 74 09/13/2024 10:22 PM CDT Temperature 36.3 C (97.4 F) 09/13/2024 10:22 PM CDT Respiratory Rate 20 09/13/2024 10:22 PM CDT Oxygen Saturation 99% 09/14/2024 1:00 AM CDT Inhaled Oxygen Concentration - - Weight 87.5 kg (193 lb) 09/13/2024 10:22 PM CDT Height 157.5 cm (5' 2) 09/13/2024 10:22 PM CDT Body Mass Index 35.3 09/13/2024 10:22 PM CDT Plan of Treatment Health Maintenance [...] to 64) Every 3 Years 06/20/2025 06/20/2022, 04/28/2020, 02/14/2018, Additional history exists Cervical Cancer Screening Pap with HPV Testing (Age 30 to 64) Every 5 Years 06/21/2027 06/20/2022 Cervical Cancer Screening with HPV 06/21/2027 [...] this topic Meningococcal Vaccine Aged Out No casron sarah eligible based on patient's age to complete this topic RSV Immunizations Under 20 Months Aged Out No longer eligible based on patient's age to complete this topic Procedures Procedure Name Priority Date/Time Associated Diagnosis Comments CBC W/DIFF AUTOMATED STAT 08/28/2024 11:31 PM CDT COMPREHENSIVE METABOLIC PANEL STAT 08/28/2024 11:31 PM CDT CRITICAL CARE Routine 08/28/2024 11:05 PM CDT XR CHEST PA+LAT STAT 08/26/2024 11:02 PM CDT STREP A RAPID STAT 08/26/2024 10:39 PM CDT INFLUENZA A & B STAT 08/26/2024 10:39 PM CDT CORONAVIRUS (COVID-19) ANTIGEN STAT 08/26/2024 10:39 PM CDT MAGNESIUM STAT 08/26/2024 10:39 PM CDT HC URINALYSIS AUTO W/O MICRO STAT 08/26/2024 10:39 PM CDT COMPREHENSIVE METABOLIC PANEL STAT 08/26/2024 10:39 PM CDT CBC W/DIFF AUTOMATED STAT 08/26/2024 10:39 PM CDT BASIC METABOLIC PANEL STAT 08/08/2024 12:07 AM CDT CBC W/DIFF AUTOMATED STAT 08/08/2024 12:07 AM CDT URINE BACTERIA CULTURE Nurse Collected Priority 08/07/2024 11:55 PM CDT HC URINALYSIS AUTO W/MICRO Nurse Collected Priority 08/07/2024 11:55 PM CDT HUMAN PAPILLOMAVIRUS, HIGH-RISK TYPES Routine 06/20/2022 12:00 PM CDT CYTOPATH CERV/VAG THIN LAYER Routine 06/20/2022 7:46 AM CDT from Last 3 Months or Most Recently Relevant to Health Maintenance Results * (ABNORMAL) COMPREHENSIVE METABOLIC PANEL (08/28/2024 11:31 PM CDT) Only the most recent of2 resultswithin the time period is included. SODIUM S/P/B 140 136 - 145 MMOL/L 08/29/2024 12:04 AM T [facility] POTASSIUM S/P/B 4.0 3.6 - 5.0 MMOL/L 08/29/2024 12:04 AM T [facility] CHLORIDE S/P/B 111 97 - 115 MMOL/L 08/29/2024 12:04 AM [facility] CO2 26.6 21.0 - 32.0 MMOL/L 08/29/2024 12:04 AM [facility] GLUCOSE 104(H) 70 - 99 MG/DL 08/29/2024 12:04 AM [facility] Comment: FASTING GLUCOSE 100 TO 125 MG/DL IS CONSISTENT WITH IMPAIRED FASTING GLUCOSE. FASTING GLUCOSE >125 MG/DL IS CONSISTENT WITH DIABETES. RANDOM GLUCOSE >200 MG/DL WITH HYPERGLYCEMIC SYMPTOMS IS CONSISTENT WITH DIABETES. PER ADA GUIDELINES BUN 23(H) 7 - 18 MG/DL 08/29/2024 12:04 AM T [facility] CREATININE S/P/B 2.26(H) 0.55 - 1.02 MG/DL 08/29/2024 12:04 AM T [facility] CALCIUM S/P/B 8.5 8.5 - 10.1 MG/DL 08/29/2024 12:04 AM [facility] BILIRUBIN TOTAL S/P/B 1.6(H) 0.2 - 1.0 MG/DL 08/29/2024 12:04 AM [facility] Comment: THIS ASSAY IS NOT RECOMMENDED FOR PATIENTS UNDERGOING TREATMENT WITH ELTROMBOPAG DUE TO THE POTENTIAL FOR FALSELY ELEVATED RESULTS. ALKALINE PHOSPHATASE S/P/B 244(H) 37 - 98 U/L 08/29/2024 12:04 AM [facility] AST 25 15 - 37 U/L 08/29/2024 12:04 AM [facility] ALT 21 13 - 56 U/L 08/29/2024 12:04 AM [facility] TOTAL PROTEIN S/P/B 6.2(L) 6.4 - 8.0 G/DL 08/29/2024 12:04 AM [facility] ALBUMIN S/P/B 3.3(L) 3.4 - 5.0 G/DL 08/29/2024 12:04 AM [facility] ANION GAP 2.4 2.0 - 10.0 MMOL/L 08/29/2024 12:04 AM [facility] OSMOLALITY (CALC) 294 MOSM/KG 025 12:04 AM [facility] GFR ESTIMATE 27(L) >90 ML/MIN/1. 73 M2 08/29/2024 12:04 AM [facility] GFR NOTES GFR REFERENCE S: 08/29/2024 12:04 AM [facility] Comment: THE ESTIMATED GFR [...] ml/min/1.73 m2 G5,KIDNEY FAILURE: <15 ml/min/1.73 m2 08/28/2024 11:3 1 PM CDT Radu Loya MD LABORATORY Final Result [facility] [address] [email or web address] [address], * (ABNORMAL) CBC W/DIFF AUTOMATED (08/28/2024 11:31 PM CDT) Only the most recent of3 resultswithin the time period is included. WBC 5.58 4.00 - 10.80 x10'3/uL 08/28/2024 11:44 PM CDT [facility] RBC 3.09(L) 4.10 - 5.40 x10'6/uL 08/28/2024 11:44 PM CDT [facility] HGB 12.4 12.0 - 16.0 G/DL 08/28/2024 11:44 PM CDT [facility] HCT 33.6(L) 36.0 - 47.0 % 08/28/2024 11:44 PM CDT [facility] MCV 108.7(H) 78.0 - 100.0 FL 08/28/2024 11:44 PM CDT [facility] MCH 40.1(H) 27.0 - 31.0 PG 08/28/2024 11:44 PM CDT [facility] MCHC 36.9(H) 33.0 - 36.0 G/DL 08/28/2024 11:44 PM CDT [facility] RDW 13.9 11.5 - 14.5 % 08/28/2024 11:44 PM CDT [facility] PLT 123(L) 150 - 350 x10'3/uL 08/28/2024 11:44 PM CDT [facility] MPV 11.0(H) 7.4 - 10.4 FL 08/28/2024 11:44 PM CDT [facility] DIFFERENTIAL TYPE AUTOMATED 08/28/2024 11:44 PM CDT [facility] SEG NEUTROPHILS 73.3 % 11:44 PM CDT [facility] LYMPHOCYTES 15.6 % 08/28/2024 11:44 PM CDT [facility] MONOCYTES 8.6 % 08/28/2024 11:44 PM CDT [facility] EOSINOPHILS 1.6 % 08/28/2024 11:44 PM CDT [facility] BASOPHILS 0.2 % 08/28/2024 11:44 PM CDT [facility] IMMATURE GRANS % 0.7 % 08/29/19 11:44 PM CDT [facility] NRBC 0.0 % 08/28/2024 11:44 PM CDT [facility] ABS. NEUTROPHILS 4.09 1.60 - 8.30 x10'3/uL 08/28/2024 11:44 PM CDT [facility] ABS. LYMPHOCYTES 0.87 0.80 - 4.70 x10'3/uL 08/28/2024 11:44 PM CDT [facility] ABS. MONOCYTES 0.48 0.00 - 1.50 x10'3/uL 08/28/2024 11:44 PM CDT [facility] ABS. EOSINOPHILS 0.09 0.00 - 0.40 x10'3/uL 08/28/2024 11:44 PM CDT [facility] ABS. BASOPHILS 0.01 0.00 - 0.20 x10'3/uL 08/28/2024 11:44 PM CDT [facility] ABS. IMMATURE GRANULOCYTES 0.04(H) 0.00 - 0.03 x10'3/uL 08/28/2024 11:44 PM CDT [facility] ABS. NUCLEATED RBC'S 0.00 0.00 - 0.01 x10'3/uL 08/28/2024 11:44 PM CDT [facility] 08/28/2024 11:3 1 PM CDT Radu Loya MD LABORATORY Final Result [facility] [address] [place] [address], * Critical Care (08/28/2024 11:05 PM CDT) Radu Walker MD - 08/28/2024 11:05 PM CDT Radu Loya MD 08/29/2024 4:42 AM Critical Care Performed by: Radu Loya MD Authorized by: Radu Loya MD Critical care provider statement: Critical care time (minutes): 36 Critical care time was exclusive of: Separately billable procedures and treating other patients and teaching time Critical care was necessary to treat or prevent imminent or life-threatening deterioration of the following conditions: MANAGER AEROSPACE failure or compromise and respiratory failure Critical care was time spent personally by me on the following activities: Ordering and performing treatments and interventions, ordering and review of laboratory studies, ordering and review of radiographic studies, pulse oximetry, re-evaluation of patient's condition, review of old charts, obtaining history from patient or surrogate, interpretation of cardiac output measurements, examination of patient, evaluation of patient's response to treatment and development of treatment plan with patient or surrogate I assumed direction of critical care for this patient from another provider in my specialty: no Radu Loya MD PROCEDURE/MINOR SURGICAL ORDERAB LES Final Result * XR CHEST PA+LAT (08/26/2024 11:02 PM CDT) Anatomical Region Laterality Modality Chest Radiographic Katy ging 08/26/2024 11:2 0 PM CDT Impressions 08/26/2024 11:21 PM CDT IMPRESSION:===== NO ACUTE CARDIOPULMONARY FINDINGS. Referred By: Interpreted By: David Hart MD, 08/26/2024 11:20 PM Narrative 08/26/2024 11:[address] [place], [place] [address] EXAMINATION: Chest X-Ray 2 View EXAM DATE/TIME: 08/26/2024 10:54 PM REASON FOR EXAM: Cough. Back pain and migraine headache. COMPARISON: Chest from 02/19/2024. TECHNIQUE: PA and lateral views of the chest were obtained. FINDINGS: There is no focal infiltrate or consolidative change. Heart size is within normal limits. Pulmonary vasculature is within normal limits. There is no large pleural effusion or pneumothorax. Skeletal structures are grossly intact. ===== Procedure Note David Hart MD - 08/26/[address] [place] [address] EXAMINATION: Chest X-Ray 2 View EXAM DATE/TIME: 08/26/2024 10:54 PM REASON FOR EXAM: Cough. Back pain and migraine headache. COMPARISON: Chest from 02/19/2024. TECHNIQUE: PA and lateral views of the chest were obtained. FINDINGS: There is no focal infiltrate or consolidative change. Heart sizeis within normal limits. Pulmonary vasculature is within normal limits.There is no large pleural effusion or pneumothorax. Skeletal structuresare grossly intact. ===== IMPRESSION:===== NO ACUTE CARDIOPULMONARY FINDINGS. Referred By: Interpreted By: David Hart MD, 08/26/2024 11:20 PM K[facility] Final R esult * CORONAVIRUS (COVID-19) ANTIGEN (08/26/2024 10:39 PM CDT) CORONAVIRUS ANTIGEN IA NEGATIVE NEGATIVE 08/26/2024 11:07 PM CDT [facility] Comment: NEGATIVE RESULTS SHOULD BE [...] USE BY AUTHORIZED LABORATORIES. SPECIMEN TYPE NASAL 08/26/2024 10:40 PM CDT [facility] NASAL NASAL STRUCTURE / Unknown 08/26/2024 10:39 PM CDT us Karmen EDMON[facility] MICROBIOLOGY - GENERAL ORDERABLES Final Result [facility] [address] [place] [address], * INFLUENZA A & B (08/26/2024 10:39 PM CDT) Pathologist [facility] SPECIMEN TYPE (INFLUENZA) NASAL 08/26/2024 10:40 PM CDT [facility] INFLUENZA A NEGATIVE NEGATIVE 08/26/2024 11:06 PM CDT [facility] INFLUENZA B NEGATIVE NEGATIVE 08/26/2024 11:06 PM CDT [facility] NASAL STRUCTURE / Unknown 08/26/2024 10:39 PM CDT us Karmen EDMOND MICROBIOLOGY - GENERAL ORDERABLES Final Result [facility] [address] [place] [address], * (ABNORMAL) URINALYSIS (08/26/2024 10:39 PM CDT) Only the most recent of2 resultswithin the time period is included. SPECIMEN TYPE URINE VOIDED 10:40 PM [facility] COLOR (U) YELLOW 08/26/2024 11:02 PM [facility] TRANSPARENCY CLEAR 08/26/2024 11:02 PM [facility] SPECIFIC GRAVITY (U) 1.016 1.002 - 1.035 08/26/2024 11:02 PM [facility] U PH 6.0 5.0 - 9.0 08/26/2024 11:02 PM [facility] LEUKOCYTES (U) NEGATIVE NEGATIVE 08/26/2024 11:02 PM [facility] NITRITES NEGATIVE NEGATIVE 08/26/2024 11:02 PM [facility] PROTEIN RANDOM (U) TRACE(A) NEGATIVE 08/26/2024 11:02 PM [facility] GLUCOSE (U) NORMAL NORMAL 08/26/2024 11:02 PM [facility] KETONES MG/DL (U) NEGATIVE NEGATIVE 08/26/2024 11:02 PM [facility] UROBILINOGEN 2.0(H) 0 - 1 EU/DL 08/26/2024 11:02 PM [facility] BILIRUBIN (U) NEGATIVE NEGATIVE 08/26/2024 11:02 PM [facility] BLOOD (U) NEGATIVE NEGATIVE 08/26/2024 11:02 PM [facility] MUCUS FEW 08/26/2024 11:02 PM [facility] WBC/HPF 0-5 /HPF 08/26/2024 11:02 PM CDT [facility] RBC/HPF 0-5 /HPF 08/26/2024 11:02 PM CDT [facility] SQUAMOUS EPITHELIALS MODERATE 08/26/2024 11:02 PM CDT [facility] URINE SPECIMEN FROM URETHRA / Unknown 08/26/2024 10:39 PM CDT us Karmen EDMOND URINE ORDERABLES Final Result [facility] [address] [place] [address], [place] [phone] * STREP A RAPID (08/26/2024 10:39 PM CDT) SPECIMEN SOURCE THROAT 08/26/2024 10:40 PM CDT [facility] RAPID STREP TEST NEGATIVE NEGATIVE 08/26/2024 11:06 PM CDT [facility] STRUCTURE OF ANTERIOR PORTION OF NECK / Unknown 08/26/2024 10:39 PM CDT us Karmen EDMOND MICROBIOLOGY - GENERAL ORDERABLES Final Result [facility] [address] [place] [address], [place] [phone] * MAGNESIUM (08/26/2024 10:39 PM CDT) MAGNESIUM 1.6 1.6 - 2.6 MG/DL 08/26/2024 11:20 PM CDT [facility] Comment:RESULT QUESTIONABLE DUE TO HEMOLYSIS, CONSIDER RECOLLECTION. 08/26/2024 10:3 9 PM CDT us Karmen EDMOND LABORATORY Final R esult [facility] [address] [place] [address], * (ABNORMAL) BASIC METABOLIC PANEL (08/08/2024 12:07 AM CDT) SODIUM S/P/B 137 136 - 145 MMOL/L 08/08/2024 12:36 AM CDT [facility] POTASSIUM S/P/B 4.5 3.5 - 5.1 MMOL/L 08/08/2024 12:36 AM CDT [facility] CHLORIDE S/P/B 111 97 - 115 MMOL/L 08/08/2024 12:36 AM CDT [facility] CO2 19.6(L) 21.0 - 32.0 MMOL/L 08/08/2024 12:36 AM CDT [facility] GLUCOSE 144(H) 74 - 106 MG/DL 08/08/2024 12:36 AM CDT [facility] BUN 28(H) 7 - 18 MG/DL 08/08/2024 12:36 AM T [facility] CREATININE S/P/B 2.01(H) 0.55 - 1.02 MG/DL 08/08/2024 12:36 AM CDT [facility] CALCIUM S/P/B 9.2 8.5 - 10.1 MG/DL 08/08/2024 12:36 AM CDT [facility] ANION GAP 6.4 2.0 - 10.0 MMOL/L 08/08/2024 12:36 AM T [facility] OSMOLALITY (CALC) 292 MOSM/KG 025 12:36 AM T [facility] Comment:REFERENCE RANGE NOT ESTABLISHED GFR ESTIMATE 31(L) >90 ML/MIN/1. 73 M2 08/08/2024 12:36 AM T [facility] GFR NOTES GFR REFERENCE S: 08/08/2024 12:36 AM CDT [facility] Comment: THE ESTIMATED GFR IS CALCULATED [...] ml/min/1.73 m2 G5,KIDNEY FAILURE: <15 ml/min/1.73 m2 08/08/2024 12:0 7 AM CDT us Danish Menjivar MD LABORATORY Final Result Performing Organization Address [facility] Co de Phone Number [facility] [address] [place] [address], [phone] * CULTURE URINE (08/07/2024 11:55 PM CDT) SPEC DESCRIPTION URINE, UNSPECIFIED 08/07/2024 11:55 PM CDT [facility] SPECIAL REQUESTS NO SPECIAL REQUEST 08/07/2024 11:55 PM CDT [facility] CULTURE RESULT NO GROWTH (< OR = 1,000 CFU/ML) 08/09/2024 9:03 AM CDT [facility] URINE SPECIMEN / Unknown 08/07/2024 11:55 PM CDT 08/08/2024 12:15 AM CDT us Danish Menjivar MD MICROBIOLOGY - GENERAL ORDER KAREN Final Result Performing Organization Address [facility] Co de Phone Number [facility] [address] [place] [address], [place] [phone] * HUMAN PAPILLOMAVIRUS, HIGH-RISK TYPES (06/20/2022 12:00 PM CDT) SPECIMEN CERVICAL/END OCERVICAL 06/22/2022 8:18 AM CDT [facility] HPV DNA HIGH RISK NEGATIVE NEGATIVE 06/22/2022 7:35 PM CDT [facility] Comment:SEE CYTOLOGY REPORT 06/20/2022 12:0 0 PM CDT us Sekou Scherer MD PATHOLOGY/CYTOLOGY ORDER KAREN Final Result [facility] [address] [place] [phone], * Cytopath Cerv/Vag Thin Layer (06/20/2022 7:46 AM CDT) THIN PREP PAP [facility] [address] [place] [address] Department of Pathology Pathology Report CERVICAL/VAGINAL PAP SMEAR REPORT Name: MISHA BROWNE Age: 7 1980 (Age: 41) Location: [facility] Sex: F Collected Date: 06/20/2022 [facility] #: [id number] Date Received: 06/22/2022 Date Reported: 06/24/2022 Provider: [...] Cohen (ASCP) CLINICAL HISTORY Z12.4 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 [facility] 06/20/2022 7:46 AM CDT 06/22/2022 7:46 AM CDT Comment:CERVICAL/ENDOCERVICA L Sekou Scherer MD PATHOLOGY/CYTOLOGY ORDER KAREN Final Result [facility] [address] [place] [address], from Last 3 Months or Most Recently Relevant to Health Maintenance [facility] Advance Directives * Full Code (Latest Code Status on File) Date Activated Date Inactivated Comments 02/20/2024 1:27 AM 02/20/2024 11:44 AM * Full Code Date Activated Date Inactivated Comments 06/21/2017 12:22 AM 06/21/2017 8:16 PM Care Teams Barratte Operator Relationship Specialty Start Date End Date Lyly Fiore NP [address] [place] [address] PCP - General NURSE PRACTITIONER 04/14/24
--- OUTSIDE RECORDS SUMMARY | 2024-10-05 20:32 | XMS_ITS | Continuity of Care Document ---
Author Organization [facility] Address [address] [place] [address] Phone Care Team Providers Care Refrigeration System Installer Name Role Phone Santana Timmons MD Unavailable Unavailable Procedures Procedure Date Subsequent Hospital Care Initial Inpatient Consult Advance Directives Directive Yes / No Effective Date File Name No Information Encounters Encounter Description Practice Location Reason(s) For Visit Diagnoses Date Provider Providers Copied on Encounter Subsequent Hospital Care [facility], [address] [place] [address], [id number], tel:[phone] [facility] No Information 1 Shanelle Dillon. [address] [place] [address], [id number], [place]. tel:[phone] Referring Provider: Hermes Ramirez , [address] [place] [address], [id number]. tel:[phone] Initial Inpatient Consult [facility], [address] [place] [address], [id number], tel:[phone] [facility] No Information Shanelle Dillon. [address] [place] [address], [id number], . tel:[phone] Referring Provider: Hermes Ramirez [address], [address]. tel:[phone] Family History Family Member Type Diagnosis Age At Onset No Information Payers Payer name Insurance type Covered libertarian ID Authoriza tiyoan(s) [facility] [id number] Social History Type Description Quantity Date Captured Comments Sex Female Smoking Status No Information Chief Complaint And Reason For Visit No Information History Of Present Illness Encounter Date Complaint History Of Prese nt Illness No Information Instructions Date Instruction Additional Infor mation No Information Assessments Type Assessment Date No Information
--- OUTSIDE RECORDS SUMMARY | 2024-10-05 20:32 | XMS_ITS | Encounter Summary ---
Author Organization [facility] Address [address] [place] [address] Care Team Providers Care Ornamenter Hand Name Role Phone Hermes Ramirez MD Primary Care Provider Reason for Visit * Reason Comments Refill Request Encounter Details Date Type Department Care Team (Late st Contact Info) Description 12/06/2023 Refill [facility] [address] [place], [place] [id number] Levi Sheriff, ELISA [address] [place] [address] Refill Request Social History Tobacco Use Types Packs/Day Years Used Date Smoking Tobacco: Some Days Cigarettes 0.5 21.5 Started: 03/20/2000; Last attempted to quit: 03/20/2020 Smokeless Tobacco: Never Alcohol Use Standard [...] Currently or in the past 3 m [facility], have you worried your food would run out before you had money to buy more? No 2023 In the past 12 months, have you run out of food or been unable to get more? 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
--- OUTSIDE RECORDS SUMMARY | 2024-10-05 20:32 | XMS_ITS | Encounter Summary ---
Author Organization [facility] Address [address] [place] [address] Care Team Providers Care Salvage Inspector Wood Parts Name Role Phone Hermes Ramirez MD Primary Care Provider Encounter Details Date Type Department Care Team (Late st Contact Info) Description 11/21/2023 Telephone [facility] [address] [place], [place] [id number] Ajith Wild MD [address] [facility] [address] [place], [place] [id number] Social History Tobacco Use Types Packs/Day Years [...] Currently or in the past 3 m [facility], have you worried your food would [...] on file 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 documented in this encounter Plan of Treatment Not on file documented as of this encounter Visit Diagnoses Not on filedocumented in this encounter Additional Health Concerns Assessment Noted Time PHQ-9 Depression Total Score: 6 12/08/19 22 3:08 PM CDT PHQ-2 Depression Total Score: 0 06/23/19 23 10:20 AM CDT documented as of this encounter Care Teams Salvage Inspector Wood Parts Relationship Specialty Start Date End Date Hermes Ramirez MD [address] [place] [address] PCP - General 05/28/20 documented as of this encounter
--- OUTSIDE RECORDS SUMMARY | 2024-10-05 20:32 | XMS_ITS | Encounter Summary ---
Author Organization [facility] Address [address] [place] [address] Care Team Providers Care Outside Industrial Sales Representative Name Role Phone Hermes Ramirez MD Primary Care Provider Encounter Details Date Type Department Care Team (Late st Contact Info) Description 07/24/2024 Lab Requisition [facility] [address] [address] Transplant-Liver, [place] [address] Mailstop [phone] [place] [address] Social History Tobacco Use Types Packs/Day Years [...] Currently or in the past 3 m [facility], have you worried your food would run [...] on file 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 07/26/2024 4:32 PM CDT [facility] Reference 07/26/2024 4:32 PM CDT [facility] Tissue TISSUE SPECIMEN / Unknown 11/17/2023 07/24/2024 4:31 PM CDT [facility] Transplant-Liver LAB PATHOLOGY CYTOLOGY ORDERABLE Final Result Performing Organization Address City/[facility] Co de Phone Number [facility] [address] [place] [address] * AP Block Slide Request: (11/17/2023) AP Request The following 10 slides have been sent to [facility]. 07/26/2024 4:34 PM CDT [facility] Reference 07/26/2024 4:34 PM CDT [facility] Tissue TISSUE SPECIMEN / Unknown 11/17/2023 07/24/2024 4:31 PM CDT [facility] Transplant-Liver LAB PATHOLOGY CYTOLOGY ORDERABLE Final Result Performing Organization Address City/[facility] Co de Phone Number [facility] [address] [place] [address] documented in this encounter Visit Diagnoses Not on filedocumented in this encounter Additional Health Concerns Assessment Noted Time PHQ-9 Depression Total Score: 6 12/08/19 22 3:08 PM CDT PHQ-2 Depression Total Score: 0 06/23/19 23 10:20 AM CDT documented as of this encounter Care Teams Outside Industrial Sales Representative Relationship Specialty Start Date End Date Hermes Ramirez MD [address] [place] [id number] PCP - General 05/28/20 documented as of this encounter
--- OUTSIDE RECORDS SUMMARY | 2024-10-05 20:32 | XMS_ITS | Referral Summary ---
Author Organization 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 Gender Identity Not on file Sexual [...] 01/18/2024 11:05 AM CDT Plan of Treatment Not on file Medical Devices Implanted Type Area Groundskeeper Porter Device Identifier Shelf Expiration Date Model / Serial / Lot Liver - [id number] Implanted:Qty: 1 on 05/09/2020 by Nirav Carpio MD at [facility] N/A: Abdomen ORGAN PROCUREMENT ORGANIZATION 05/10/2020 ORGAN - LIVER / [id number] / LOT NA Left Kidney - [id number] Implanted:Qty: 1 on 05/09/2020 by Nirav Carpio MD at [facility] N/A: Abdomen ORGAN PROCUREMENT ORGANIZATION 05/10/2020 ORGAN - LEFT KIDNEY / [id number] / LOT NA Stent Ureteral L12 Cm L100 Cm Od6 Fr .028 In Closed End Design One Step Insertion Radiopaque Filler Double-J Silicone Disposable - [id number] Implanted:Qty: 1 on 05/09/2020 by Nirav Carpio MD at [facility] N/A: Abdomen OLYMPUS - [employer] W[employer]NER 02/11/2025 [id number] / / [id number] Stent Ureteral L12 Cm L100 Cm Od6 Fr .028 In Closed End Design One Step Insertion Radiopaque Filler Double-J Silicone Disposable - [id number] Implanted:Qty: 1 on 05/09/2020 by Nirav Carpio MD at [facility] N/A: Abdomen OLYMPUS - GYRUS [employer]NER 02/11/2025 [id number] / / [id number] Device Closure L70 Cm .038 In Insertion Sheath Arteriotomy Cold Mill Operator Guidewire J Travel Ticketing Reviewer Vascular Angio-Seal Evolution ([id number]) - [id number] Implanted:Qty: 1 on 07/20/2020 at [facility] [employer] W[employer]NER 03/19/2021 [id number] / / [id number] Procedures Procedure Name Priority Date/Time Associated Diagnosis Comments HEPATITIS C VIRUS ANTIBODY Routine 11/07/2023 5:43 AM CDT HIV RNA QUANTITATION (HIV VIRAL LOAD) Routine 06/17/2020 9:55 AM CDT Other oysterman (current) drug therapy Encounter for aftercare following liver transplant ([facility]) Status post kidney transplant PATHOLOGY GYNE CYTOLOGY 04/28/2020 12:00 AM ASSET SPECIALIST from Last 3 Months or Most Recently Relevant to Health Maintenance Results * Hepatitis C Virus Antibody (11/07/2023 5:43 AM CDT) Pathologist [facility] HEP C AB Not Detected Not Detected [facility] Comment: Antibodies to HCV not detected. This does not exclude the possibility of exposure to HCV. 11/07/2023 5:43 AM CDT 11/07/2023 6:16 AM CDT us Phillip Mustafa MD LAB BLOOD ORDERABLES Final Re sult [facility] [address] [place] [address] * HIV RNA Quantitation (06/17/2020 9:55 AM CDT) Pathologist [facility] HIV-1 RNA QUANTITATION HIV RNA Quantitation [facility] HIV-1 RNA QUANTITATION Less than 40 Less than 40 Copies/m L [facility] HIV LOG RESULT Less than 1.6 R [facility] Comment: Methodology: Quantitation of HIV RNA is [...] 9:55 AM CDT 06/17/2020 10:42 AM CDT us Allen Manzano PA-C LAB BLOOD MICRO Final Resu lt [facility] [address] [place] [address] * Pathology Gyne Cytology: (04/28/2020 12:00 AM ASSET SPECIALIST) AP [facility] COPA TH CONVERSION PATHOLOGY RESULT Department of Pathology [facility] [address] [place] [address], Room [address] [place] [address] Final *Clinical Data Electronic version* This report may not match the original report format REPORT DATE: 05/04/2020 FINAL CYTOLOGIC DIAGNOSIS GYNE THIN PREP + HPV HIGH RISK Adequacy: Satisfactory for evaluation, but limited by no transformation zone. General Category: Negative for intraepithelial lesion or malignancy. Description: Fungal organisms morphologically consistent with Lydia. HPV mRNA E6/E7 NOT DETECTED Performed using the APTIMA HPV Assay ([employer]) This assay detects E6/E7 viral messenger RNA (mRNA) from 14 high risk HPV types (16, 18, 31, 33, 35, 39, 45, 51, 52, 56, 58, 59, 66, 68) [Reference Range = NOT DETECTED] TEST PERFORMED AT: [facility], [facility] [place] [address]. Research Geneticist: David Kc MD. CLIA # [id number]. Attending Pathologist: Destiny Obregon MD, PhD * Electronically signed Review by Split Leather Mosser: Akil De La Cruz * Electronically signed [...] developed and the performance characteristics determined by [facility] Department of Pathology. These tests have not been cleared or approved for commercial use by the U.S. Food and Drug Administration. This test is used for clinical purposes. It should not be regarded as investigational or for research. The FDA has determined that FDA review is not required for such assays. This is for [id number]. CLINICAL INFORMATION Date of Last Menstrual Period: UNKNOWN Other Clinical Conditions: LSIL or higher, bx/pap HPV, Hx/Dx/Rx Intradepartmental Consultation Pathologist: ICD-CM(s): A; Z12.4 Z11.51 CPT(s): A; 93745, 65682 [facility] COPATH CONVERSION AP Final Diagnosis GYNE THIN PREP + HPV HIGH RISK Adequacy: Satisfactory for evaluation, but limited by no transformation zone. General Category: Negative for intraepithelial lesion or malignancy. Description: Fungal organisms morphologically consistent with Lydia. HPV mRNA E6/E7 NOT DETECTED Performed using the APTIMA HPV Assay ([employer]) This assay detects E6/E7 viral messenger RNA (mRNA) from 14 high risk HPV types (16, 18, 31, 33, 35, 39, 45, 51, 52, 56, 58, 59, 66, 68) [Reference Range = NOT DETECTED] TEST PERFORMED AT: [facility], [address] [place] [address]. Research Geneticist: David Kc MD. CLIA # [id number]. [facility] COPATH CONVERSION AP Notes This case was reviewed by a pathologist for QC purposes only. [facility] COP[facility] CONVERSION AP ICD-10 Code Z12.4 Z11.51 [facility] COPATH CONVERSION HPV HR SCREEN SEE COMMENT [facility] COPATH CONVERSION 04/28/2020 04/29/2020 7:2 0 AM ASSET SPECIALIST Dulce Austin MD PATHOLOGY Edited Result - Final [facility] COPATH CONVERSION from Last 3 Months or Most Recently Relevant to Health Maintenance Advance Directives Documents on File Type Date Recorded Patient Wheel Loader Operator Expl anation Advance Directives 07/18/2020 9:50 AM [...] 1:35 AM 12/14/2020 1:59 PM Care Teams Optical Instrument Specialist Relationship Specialty Start Date End Date Hermes Ramirez MD [address] [place] [address] PCP - General 05/28/20
--- NOTE | 2024-10-05 20:44 | ED_ITS ---
HPI - Headache General Chief Complaint: Headache Stated Complaint: migraine, low back pain Time Seen by Provider: 10/05/24 20:34 Source: patient Mode of arrival: ambulatory Limitations: no limitations History of Present Illness HPI Narrative: 44 year old female presents to the Emergency Department complaining of migraine headache and back pain. Patient states the headache began today. States pain is on the right side like it always is. This is typical headache. She has taken her limit of Tylenol and Fioricet. She goes to [facility] for her chronic back pain. She has history of 2 liver transplants and kidney transplant. MD elicited complaint: headache and migraine Pertinent past history: migraines Onset (ago): hour(s) Location: right Exacerbating factors: none Relieving factors: nothing Treatments prior to arrival: acetaminophen and prescription analgesic Related Data Allergies Allergy/AdvReac Type Severity Reaction Status Date / Time erythromycin base Allergy Intermediate Rash Verified 10/05/24 20:35 gentamicin Allergy Intermediate Rash Verified 10/05/24 20:35 ketorolac (From Toradol) AdvReac Severe Abdominal Verified 10/05/24 20:35 Pain NSAIDS (Non-Steroidal AdvReac Severe Abdominal Verified 10/05/24 20:35 Anti-Inflamma Pain Review of Systems Review of Systems: All systems reviewed & are unremarkable except as noted in HPI and below Constitutional: Constitutional: Reports as per HPI, Denies chills and Denies fever(s) Eyes: Eyes: Reports as per HPI and Denies change in vision ENT: Reports system reviewed and no additional complaints, except as documented, Denies dizziness, Denies nasal congestion and Denies sore throat Cardiovascular: Cardiovascular: Reports as per HPI and Denies chest pain Respiratory: Respiratory: Reports as per HPI and Denies dyspnea Gastrointestinal: Gastrointestinal: Reports as per HPI and Reports nausea Genitourinary: Genitourinary: Reports no additional female genitourinary complaints Musculoskeletal: Musculoskeletal: Reports no additional musculoskeletal complaints Integumentary/Breasts: Skin/Breast: Reports system reviewed and no additional complaints, except as docu and Reports breast pain Neurologic: Reports system reviewed and no additional complaints, except as documented, Reports headache(s), Denies focal weakness, Denies numbness and Denies weakness PMFSH Past Medical History Medical History Anxiety and depression Spinal stenosis DJD (degenerative joint disease) Migraine Biliary atresia Surgical History Surgical History Liver transplant recipient Exam Const: General: no acute distress and alert Nutritional Appearance: well nourished Orientation/consciousness: patient oriented x3 Limitations: no limitations HENMT: Head: normal to inspection Ears: external ears normal Face/Nose/Sinus: Normal external nose present Face and sinus: normal facial exam Mouth: Yes Normal oral and palatal mucosa present Teeth and gingiva: dentition normal Throat: posterior oropharynx normal Eyes: Pupils: Equal, round and reactive pupils present EOM: EOMs intact bilaterally Other: fundoscopic exam normal Neck: Neck: normal visual inspection and no meningeal signs Chest: Chest palpation & inspection: normal inspection of the chest Resp: Effort & Inspection: normal respiratory effort Auscultation: clear to auscultation bilaterally Cardio: Rate: regular rate Rhythm: regular rhythm Heart sounds: no murmurs GI: Inspection: non-distended GI Palp: Yes Soft to palpation and No Tenderness to palpation present (GI) : General: Yes bladder normal to palpation Back/Spine/Pelvis: Back: no CVA tenderness Skin: General skin exam: normal color Rashes: no rashes Neuro: General: patient oriented x3, moves all extremities, no meningeal signs, no focal motor deficits and CN's II-XI intact bilaterally Cranial nerves: Yes Nystagmus not present Speech: normal speech Gait exam (Neuro): Normal gait present Extrem: General: normal to inspection and no clubbing, cyanosis or edema Psych: Mental Status: mental status grossly normal Course Vital Signs Vital signs: Vital Signs Temperature 36.7 C 10/05/24 20:27 Pulse Rate 72 10/05/24 20:27 Respiratory Rate 20 10/05/24 20:27 Blood Pressure 173/98 H 10/05/24 20:27 Pulse Oximetry 100 10/05/24 20:27 Oxygen Delivery Room Air 10/05/24 20:27 Temperature 36.7 C 10/05/24 20:27 Pulse Rate 72 10/05/24 20:27 Respiratory Rate 20 10/05/24 20:27 Blood Pressure 173/98 H 10/05/24 20:27 Pulse Oximetry 100 10/05/24 20:27 Oxygen Delivery Room Air 10/05/24 20:27 MDM - Headache MDM Narrative Medical decision making narrative: 44 year old female presents to the ED c/o migraine headache and chronic back pain. Onset today. PE: mild distress, no acute findings Tx: NS 500 cc w/o, Phenergan 12.5 mg IVP, Dilaudid 1 mg IVP, Benadryl 50 mg IVP, Zofran 4 mg IVP. MS 4 mg IVP. Instructions Discharge Plan Discharge Clinical Impression: Chronic back pain Migraine Qualifiers: Migraine type: unspecified Status migrainosus presence: without status migrainosus Intractability: not intractable Qualified Code(s): G43.909 - Migraine, unspecified, not intractable, without status migrainosus Patient Disposition: Home Condition: Stable Instructions: Migraine Headache (ED), Chronic Back Pain (DC) Additional Instructions: Continue home medications Follow up Primary Care Provider Follow up Pain Management Patient Language: Setswana Follow-up/Referrals: UNKNOWN,DOCTOR [Non-Staff] - Time of Disposition: 21:13
[2024-10-05] MEDS: SODIUM CHLORIDE 0.9% IV 500 ML 999 ML IV CONT (21:05)
--- OUTSIDE RECORDS SUMMARY | 2024-10-05 21:07 | XMS_ITS | Encounter Summary ---
Author Organization [facility] Address [address] [place] [address] Care Team Providers Care Traffic Maintenance Supervisor Name Role Phone Beatriz Lee MD Unavailable [phone] Lyly Fiore DRY BOSS Primary Care Provider Taylor Kitchen RN Unavailable Unav ailable Encounter Details Date Type Department Care Team (Late st Contact Info) Description 08/15/2024 Results Follow-Up [facility] Transplant Liver [address] 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
--- OUTSIDE RECORDS SUMMARY | 2024-10-05 21:07 | XMS_ITS | Clinical Summary ---
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 Gastric ulcer 10/24/2016 Pancreatitis ([facility]) 10/24/2016 Chronic kidney disease 10/24/2016 Anemia, unspecified 05/04/2012 Benign gestational thrombocytopenia ([facility]/HCC) History of cone biopsy of cervix 01/04/2012 History of liver transplant ([facility]) Acute pharyngitis 11/19/2010 Abdominal pain 11/13/2010 Aphthous ulcer 11/01/2010 Anxiety 07/21/2010 Encounters Date Type Department Care Team Description 09/14/2024 12:28 AM CDT - 09/14/2024 1:50 AM CDT Emergency [facility] [address] [place] [address] [place] [address] Zack Kc MD Back Pain; Headache Discharge Disposition: Home or Self Care (Routine Discharge) 09/13/2024 Travel 08/28/2024 10:52 PM CDT - 08/29/2024 3:30 AM CDT Emergency [facility] [address] [place] [address] Radu Loya MD Cough; Vomiting; URI Discharge Disposition: Home or Self Care (Routine Discharge) 08/28/2024 Travel 08/26/2024 10:28 PM CDT - 08/27/2024 12:30 AM CDT Emergency [facility] [address] [place] [address] Karmen Byrd PA Medical Screening Discharge Disposition: Home or Self Care (Routine Discharge) 08/26/2024 Travel 08/08/2024 10:19 PM CDT - 08/08/2024 10:39 PM CDT Emergency [facility] [address] [place] [address] Roopa Damon NP Back Pain Discharge Disposition: Home or Self Care (Routine Discharge) 08/08/2024 Travel 08/07/2024 11:33 PM CDT - 08/08/2024 12:45 AM CDT Emergency [facility] [address] [place] [address] Danish Menjivar MD Back Pain; Urinary Symptoms Discharge Disposition: Home or Self Care (Routine Discharge) 08/07/2024 Travel 07/31/2024 1:03 PM CDT - 07/31/2024 2:31 PM CDT Emergency [facility] [address] [place] [address] Back Pain; Leg Pain Discharge Disposition: Home or Self Care (Routine Discharge) 07/31/2024 12:15 AM CDT - 07/31/2024 1:13 AM CDT [facility] [address] [place] [address] Back Pain Discharge Disposition: Left Against Medical [...] any time in the past 12 m [facility], were you homeless or living in a half-way (including now)? No 02/20/2024 Comments No Sex and Gender Information Value Date Recorded Sex Assigned at Female 04/05/2024 4:26 PM PROFESSOR OF EXERCISE SCIENCE Legal Sex Female 9:15 PM PROFESSOR OF EXERCISE SCIENCE Gender Identity Not on file Sexual Orientation [...] - 145 MMOL/L 08/29/2024 12:04 AM T [facility] POTASSIUM S/P/B 4.0 3.6 - 5.0 MMOL/L 08/29/2024 12:04 AM T [facility] CHLORIDE S/P/B 111 97 - 115 MMOL/L 08/29/2024 12:04 AM [facility] CO2 26.6 21.0 - 32.0 MMOL/L 08/29/2024 12:04 AM [facility] GLUCOSE 104(H) 70 - 99 MG/DL 08/29/2024 12:04 AM [facility] Comment: FASTING GLUCOSE 100 TO 125 MG/DL IS CONSISTENT WITH IMPAIRED FASTING GLUCOSE. FASTING GLUCOSE >125 MG/DL IS CONSISTENT WITH DIABETES. RANDOM GLUCOSE >200 MG/DL WITH HYPERGLYCEMIC SYMPTOMS IS CONSISTENT WITH DIABETES. PER ADA GUIDELINES BUN 23(H) 7 - 18 MG/DL 08/29/2024 12:04 AM T [facility] CREATININE S/P/B 2.26(H) 0.55 - 1.02 MG/DL 08/29/2024 12:04 AM T [facility] CALCIUM S/P/B 8.5 8.5 - 10.1 MG/DL 08/29/2024 12:04 AM [facility] BILIRUBIN TOTAL S/P/B 1.6(H) 0.2 - 1.0 MG/DL 08/29/2024 12:04 AM [facility] Comment: THIS ASSAY IS NOT RECOMMENDED FOR PATIENTS UNDERGOING TREATMENT WITH ELTROMBOPAG DUE TO THE POTENTIAL FOR FALSELY ELEVATED RESULTS. ALKALINE PHOSPHATASE S/P/B 244(H) 37 - 98 U/L 08/29/2024 12:04 AM [facility] AST 25 15 - 37 U/L 08/29/2024 12:04 AM [facility] ALT 21 13 - 56 U/L 08/29/2024 12:04 AM [facility] TOTAL PROTEIN S/P/B 6.2(L) 6.4 - 8.0 G/DL 08/29/2024 12:04 AM [facility] ALBUMIN S/P/B 3.3(L) 3.4 - 5.0 G/DL 08/29/2024 12:04 AM [facility] ANION GAP 2.4 2.0 - 10.0 MMOL/L 08/29/2024 12:04 AM [facility] OSMOLALITY (CALC) 294 MOSM/KG 025 12:04 AM [facility] GFR ESTIMATE 27(L) >90 ML/MIN/1. 73 M2 08/29/2024 12:04 AM [facility] GFR NOTES GFR REFERENCE S: 08/29/2024 12:04 AM [facility] Comment: THE ESTIMATED GFR IS [...] CDT Radu Loya MD LABORATORY Final Result [facility] [address] [place] [address], * (ABNORMAL) CBC W/DIFF AUTOMATED (08/28/2024 11:31 PM CDT) Only the most recent of3 resultswithin the time period is included. WBC 5.58 4.00 - 10.80 x10'3/uL 08/28/2024 11:44 PM CDT [facility] RBC 3.09(L) 4.10 - 5.40 x10'6/uL 08/28/2024 11:44 PM CDT [facility] HGB 12.4 12.0 - 16.0 G/DL 08/28/2024 11:44 PM CDT [facility] HCT 33.6(L) 36.0 - 47.0 % 08/28/2024 11:44 PM CDT [facility] MCV 108.7(H) 78.0 - 100.0 FL 08/28/2024 11:44 PM CDT [facility] MCH 40.1(H) 27.0 - 31.0 PG 08/28/2024 11:44 PM CDT [facility] MCHC 36.9(H) 33.0 - 36.0 G/DL 08/28/2024 11:44 PM CDT [facility] RDW 13.9 11.5 - 14.5 % 08/28/2024 11:44 PM CDT [facility] PLT 123(L) 150 - 350 x10'3/uL 08/28/2024 11:44 PM CDT [facility] MPV 11.0(H) 7.4 - 10.4 FL 08/28/2024 11:44 PM CDT [facility] DIFFERENTIAL TYPE AUTOMATED 08/28/2024 11:44 PM CDT [facility] SEG NEUTROPHILS 73.3 % 11:44 PM CDT [facility] LYMPHOCYTES 15.6 % 08/28/2024 11:44 PM CDT [facility] MONOCYTES 8.6 % 08/28/2024 11:44 PM CDT [facility] EOSINOPHILS 1.6 % 08/28/2024 11:44 PM CDT [facility] BASOPHILS 0.2 % 08/28/2024 11:44 PM CDT [facility] IMMATURE GRANS % 0.7 % 08/29/19 11:44 PM CDT [facility] NRBC 0.0 % 08/28/2024 11:44 PM CDT [facility] ABS. NEUTROPHILS 4.09 1.60 - 8.30 x10'3/uL 08/28/2024 11:44 PM CDT [facility] ABS. LYMPHOCYTES 0.87 0.80 - 4.70 x10'3/uL 08/28/2024 11:44 PM CDT [facility] ABS. MONOCYTES 0.48 0.00 - 1.50 x10'3/uL 08/28/2024 11:44 PM CDT [facility] ABS. EOSINOPHILS 0.09 0.00 - 0.40 x10'3/uL 08/28/2024 11:44 PM CDT [facility] ABS. BASOPHILS 0.01 0.00 - 0.20 x10'3/uL 08/28/2024 11:44 PM CDT [facility] ABS. IMMATURE GRANULOCYTES 0.04(H) 0.00 - 0.03 x10'3/uL 08/28/2024 11:44 PM CDT [facility] ABS. NUCLEATED RBC'S 0.00 0.00 - 0.01 x10'3/uL 08/28/2024 11:44 PM CDT [facility] 08/28/2024 11:3 1 PM CDT Radu Loya MD LABORATORY Final Result [facility] [address] [place] [address], * Critical Care (08/28/2024 11:05 PM CDT) [...] or life-threatening deterioration of the following conditions: CHICLE GRINDER FEEDER failure or compromise and respiratory failure Critical [...] 11:20 PM Narrative 08/26/2024 11:[address] [place] [address] EXAMINATION: Chest X-Ray 2 View EXAM DATE/TIME: [...] Procedure Note David Hart MD - 08/26/[address] [place] [address] EXAMINATION: Chest X-Ray 2 View EXAM DATE/TIME: [...] IA NEGATIVE NEGATIVE 08/26/2024 11:07 PM CDT [facility] Comment: NEGATIVE RESULTS SHOULD BE [...] SPECIMEN TYPE NASAL 08/26/2024 10:40 PM CDT [facility] NASAL NASAL STRUCTURE / Unknown 08/26/2024 10:39 PM CDT us Karmen EDMOND MICROBIOLOGY - GENERAL ORDERABLES Final Result [facility] [address] [place] [address], * INFLUENZA A & B (08/26/2024 10:39 PM CDT) Pathologist [facility] SPECIMEN TYPE (INFLUENZA) NASAL 08/26/2024 10:40 PM CDT [facility] INFLUENZA A NEGATIVE NEGATIVE 08/26/2024 11:06 PM CDT [facility] INFLUENZA B NEGATIVE NEGATIVE 08/26/2024 11:06 PM CDT [facility] NASAL STRUCTURE / Unknown 08/26/2024 10:39 PM CDT us Karmen EDMOND MICROBIOLOGY - GENERAL ORDERABLES Final Result [facility] [address] [place] [address], * (ABNORMAL) URINALYSIS (08/26/2024 10:39 PM CDT) Only the most recent of2 resultswithin the time period is included. SPECIMEN TYPE URINE VOIDED 10:40 PM [facility] COLOR (U) YELLOW 08/26/2024 11:02 PM [facility] TRANSPARENCY CLEAR 08/26/2024 11:02 PM [facility] SPECIFIC GRAVITY (U) 1.016 1.002 - 1.035 08/26/2024 11:02 PM [facility] U PH 6.0 5.0 - 9.0 08/26/2024 11:02 PM [facility] LEUKOCYTES (U) NEGATIVE NEGATIVE 08/26/2024 11:02 PM [facility] NITRITES NEGATIVE NEGATIVE 08/26/2024 11:02 PM [facility] PROTEIN RANDOM (U) TRACE(A) NEGATIVE 08/26/2024 11:02 PM [facility] GLUCOSE (U) NORMAL NORMAL 08/26/2024 11:02 PM [facility] KETONES MG/DL (U) NEGATIVE NEGATIVE 08/26/2024 11:02 PM [facility] UROBILINOGEN 2.0(H) 0 - 1 EU/DL 08/26/2024 11:02 PM [facility] BILIRUBIN (U) NEGATIVE NEGATIVE 08/26/2024 11:02 PM [facility] BLOOD (U) NEGATIVE NEGATIVE 08/26/2024 11:02 PM [facility] MUCUS FEW 08/26/2024 11:02 PM [facility] WBC/HPF 0-5 /HPF 08/26/2024 11:02 PM CDT [facility] RBC/HPF 0-5 /HPF 08/26/2024 11:02 PM CDT [facility] SQUAMOUS EPITHELIALS MODERATE 08/26/2024 11:02 PM CDT [facility] URINE SPECIMEN FROM URETHRA / Unknown 08/26/2024 10:39 PM CDT us Karmen EDMOND URINE ORDERABLES Final Result [facility] [address] [place] [address], [place] [phone] * STREP A RAPID (08/26/2024 10:39 PM CDT) SPECIMEN SOURCE THROAT 08/26/2024 10:40 PM CDT [facility] RAPID STREP TEST NEGATIVE NEGATIVE 08/26/2024 11:06 PM CDT [facility] STRUCTURE OF ANTERIOR PORTION OF NECK / Unknown 08/26/2024 10:39 PM CDT us Karmen EDMOND MICROBIOLOGY - GENERAL ORDERABLES Final Result [facility] [address] [place] [address], [place] [phone] * MAGNESIUM (08/26/2024 10:39 PM CDT) MAGNESIUM 1.6 1.6 - 2.6 MG/DL 08/26/2024 11:20 PM CDT [facility] Comment:RESULT QUESTIONABLE DUE TO HEMOLYSIS, CONSIDER RECOLLECTION. 08/26/2024 10:3 9 PM CDT us Karmen EDMOND LABORATORY Final R esult [facility] [address] [place] [address], * (ABNORMAL) BASIC METABOLIC PANEL (08/08/2024 12:07 AM CDT) SODIUM S/P/B 137 136 - 145 MMOL/L 08/08/2024 12:36 AM CDT [facility] POTASSIUM S/P/B 4.5 3.5 - 5.1 MMOL/L 08/08/2024 12:36 AM CDT [facility] CHLORIDE S/P/B 111 97 - 115 MMOL/L 08/08/2024 12:36 AM CDT [facility] CO2 19.6(L) 21.0 - 32.0 MMOL/L 08/08/2024 12:36 AM CDT [facility] GLUCOSE 144(H) 74 - 106 MG/DL 08/08/2024 12:36 AM CDT [facility] BUN 28(H) 7 - 18 MG/DL 08/08/2024 12:36 AM T [facility] CREATININE S/P/B 2.01(H) 0.55 - 1.02 MG/DL 08/08/2024 12:36 AM CDT [facility] CALCIUM S/P/B 9.2 8.5 - 10.1 MG/DL 08/08/2024 12:36 AM CDT [facility] ANION GAP 6.4 2.0 - 10.0 MMOL/L 08/08/2024 12:36 AM T [facility] OSMOLALITY (CALC) 292 MOSM/KG 025 12:36 AM T [facility] Comment:REFERENCE RANGE NOT ESTABLISHED GFR ESTIMATE 31(L) >90 ML/MIN/1. 73 M2 08/08/2024 12:36 AM T [facility] GFR NOTES GFR REFERENCE S: 08/08/2024 12:36 AM CDT [facility] Comment: THE ESTIMATED GFR IS [...] MD LABORATORY Final Result Performing Organization Address [facility] Co de Phone Number [facility] [address] [place] [address], [phone] * CULTURE URINE (08/07/2024 11:55 PM CDT) SPEC DESCRIPTION URINE, UNSPECIFIED 08/07/2024 11:55 PM CDT [facility] SPECIAL REQUESTS NO SPECIAL REQUEST 08/07/2024 11:55 PM CDT [facility] CULTURE RESULT NO GROWTH (< OR = 1,000 CFU/ML) 08/09/2024 9:03 AM CDT [facility] URINE SPECIMEN / Unknown 08/07/2024 11:55 PM CDT 08/08/2024 12:15 AM CDT us Danish Menjivar MD MICROBIOLOGY - GENERAL ORDER KAREN Final Result Performing Organization Address [facility] Co de Phone Number [facility] [address] [place] [address], [place] [phone] * HUMAN PAPILLOMAVIRUS, HIGH-RISK TYPES (06/20/2022 12:00 PM CDT) SPECIMEN CERVICAL/END OCERVICAL 06/22/2022 8:18 AM CDT [facility] HPV DNA HIGH RISK NEGATIVE NEGATIVE 06/22/2022 7:35 PM CDT [facility] Comment:SEE CYTOLOGY REPORT 06/20/2022 12:0 0 PM CDT us Sekou Scherer MD PATHOLOGY/CYTOLOGY ORDER KAREN Final Result [facility] [address] [place] [address], * Cytopath Cerv/Vag Thin Layer (06/20/2022 7:46 AM CDT) THIN PREP PAP [facility] [address] [place] [address] Department of Pathology Pathology Report CERVICAL/VAGINAL PAP SMEAR REPORT Name: MISHA BROWNE Age: 7 1980 (Age: 41) Location: [facility] Sex: F Collected Date: 06/20/2022 [facility] #: [id number] Date Received: 06/22/2022 Date Reported: 06/24/2022 Provider: [...] Cohen (ASCP) CLINICAL HISTORY Z12.4 PAP HISTORY-NILM CANOPY STRINGER SURGICAL HISTORY-HPV+ 05/17/16 [facility]/CRYOTHERAPY ThinPrep Pap Test [...] is not effective in detecting cervical adenocarcinoma. [facility] 06/20/2022 7:46 AM CDT 06/22/2022 7:46 AM CDT Comment:CERVICAL/ENDOCERVICA L Sekou Scherer MD PATHOLOGY/CYTOLOGY ORDER KAREN Final Result [facility] [address] [place] [address], from Last 3 Months or Most Recently Relevant to Health Maintenance Insurance [facility] Advance Directives * Full Code (Latest Code Status on File) Date Activated Date Inactivated Comments 02/20/2024 1:27 AM 02/20/2024 11:44 AM * Full Code Date Activated Date Inactivated Comments 06/21/2017 12:22 AM 06/21/2017 8:16 PM Care Teams Production Hardener Relationship Specialty Start Date End Date Lyly Fiore NP [address] [place] [address] PCP - General NURSE PRACTITIONER 04/14/24
--- OUTSIDE RECORDS SUMMARY | 2024-10-05 21:07 | XMS_ITS | Encounter Summary ---
Author Organization [facility] Address [address] [place] [address] Care Team Providers Care Hard Hat Diver Name Role Phone Hermes Ramirez MD Primary Care Provider Reason for Visit * Reason Onset Date Comments Refill Request 01/05/2021 Encounter Details Date Type Department Care Team (Late st Contact Info) Description 01/05/2021 Refill [facility] [address] [facility] [address] [place] [address] Vivian Ayala MD [address] [facility] [address] [place] [address] Refill Request Social History Tobacco [...] on file Legal Sex Female 1:03 PM RETURN TO SERVICE INSPECTOR Gender Identity Not on file Sexual [...] documented as of this encounter Care Teams Hard Hat Diver Relationship Specialty Start Date End Date Hermes Ramirez MD [address] [place] [address] PCP - General 05/28/20 documented as of this encounter
--- OUTSIDE RECORDS SUMMARY | 2024-10-05 21:07 | XMS_ITS | Encounter Summary ---
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
--- OUTSIDE RECORDS SUMMARY | 2024-10-05 21:07 | XMS_ITS | Encounter Summary ---
Author Organization [facility] Address [address] [place] [address] Care Team Providers Care Plugging Machine Operator Name Role Phone Hermes Ramirez MD Primary Care Provider Reason for Visit * Reason Comments Clinical Social Work Intervention elsa dixon Encounter Details Date Type Department Care Team (Latest Contact Info) Description 01/19/2022 Patient Outreach [place] [address] [facility] [address] [place] [address] Ho Humphreys LCSW [address] [facility] [address] [place], [place] [phone] Clinical Social Work Intervention (scheduling) Social History [...] on file Legal Sex Female 1:03 PM AUTHORIZATION SPECIALIST Gender Identity Not on file Sexual [...] documented as of this encounter Care Teams Plugging Machine Operator Relationship Specialty Start Date End Date Hermes Ramirez MD [address] [place], [place] [phone] PCP - General 05/28/20 documented as of this encounter
--- OUTSIDE RECORDS SUMMARY | 2024-10-05 21:07 | XMS_ITS | Encounter Summary ---
Author Organization [facility] Address [address] [facility] [address] [place] [address] Care Team Providers Care Veterans Adviser Name Role Phone Hermes Ramirez MD Primary Care Provider Reason for Visit * Reason Onset Date Comments Refill Request 02/15/2021 Encounter Details Date Type Department Care Team ([facility] st Contact Info) Description 02/15/2021 Refill [facility] [address] [phone] Allen Manzano PAVasquez [address] [facility] [address] [place] [address] Refill Request Social History Tobacco [...] on file Legal Sex Female 1:03 PM 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 Yes 02/17/2021 2:11 PM CHEMISTRY TECHNICIAN documented as of this encounter Plan [...] documented as of this encounter Care Teams Veterans Adviser Relationship Specialty Start Date End Date Hermes Ramirez MD [address] [place] [address] PCP - General 05/28/20 documented as of this encounter
--- OUTSIDE RECORDS SUMMARY | 2024-10-05 21:07 | XMS_ITS | Encounter Summary ---
Author Organization [facility] Address [facility] [place] [address] Care Team Providers Care Cyanide Pot Tender Name Role Phone Ashley ZUNIGA MD, Hermes Perez Primary Care Provid er Lyly Fiore NP Primary Care Provider [phone] Encounter Details Date Type Department Care Team (Late st Contact Info) Description 02/22/2024 Hospital Follow-up Call [facility] [address] [place] [address] Zulma Ardon, RN Social History Tobacco Use [...] any time in the past 12 m [facility], were you homeless or living in a alf (including now)? No 02/20/2024 Comments No Sex and Gender Information Value Date Recorded Sex Assigned at Female 04/05/2024 4:26 PM DRIVER WHEELCHAIR Legal Sex Female 9:15 PM DRIVER WHEELCHAIR Gender Identity Not on file Sexual Orientation [...] Rhinovirus 02/16/2024 02/16/2024 02/26/2024 12:3 2 AM DRIVER WHEELCHAIR COVID-19 Rule Out 08/26/2024 08/26/2024 08/26/2024 11:07 PM CDT Respiratory Rule Out 08/26/2024 08/26/2024 025 11:06 PM CDT documented as of this encounter Care Teams Cyanide Pot Tender Relationship Specialty Start Date End Date Hermes Ramirez III, MD [address] [address] PCP - General FAMILY PRACTICE 06/20/17 04/13/24 Lyly Fiore NP [address] [place] [address] PCP - General NURSE PRACTITIONER 04/14/24 documented as of this encounter
--- OUTSIDE RECORDS SUMMARY | 2024-10-05 21:07 | XMS_ITS | Encounter Summary ---
Author Organization [facility] Address [address] [facility] [address] [place] [address] Care Team Providers Care Lab Specialist Name Role Phone Hermes Ramirez MD Primary Care Provider [phone] Reason for Visit * Reason Onset Date Comments Refill Request 04/01/2021 Encounter Details Date Type Department Care Team (Late st Contact Info) Description 04/01/2021 Refill [facility] [address] [facility] [address] [place] [address] Lyly Mccollum MD [address] [facility] [address] [place] [address] Refill Request Social History Tobacco [...] on file Legal Sex Female 1:03 PM METER CALIBRATOR Gender Identity Not on file Sexual Orientation Not on file COVID-19 Exposure Response Date Recorded In the last month, have you been in contact with someone who was confirmed or suspected to have Coronavirus / COVID-19? No / Unsure 03/02/2021 2:55 PM METER CALIBRATOR documented as of this encounter Plan of Treatment Not on file documented as of this encounter Visit Diagnoses Not on filedocumented in this encounter Additional Health Concerns Assessment Noted Time PHQ-9 Depression Total Score: 9 03/02/20 3:09 PM METER CALIBRATOR PHQ-2 Depression Total Score: 0 03/10/20 11:51 AM METER CALIBRATOR documented as of this encounter Care Teams Lab Specialist Relationship Specialty Start Date End Date Hermes Ramirez MD [address] [place] [address] PCP - General 05/28/20 documented as of this encounter
--- OUTSIDE RECORDS SUMMARY | 2024-10-05 21:07 | XMS_ITS | Encounter Summary ---
Author Organization [facility] Address [address] [place] [address] Care Team Providers Care Auto Mechanic Apprentice Name Role Phone Beatriz Lee MD Unavailable [phone] Lyly Fiore ATHLETIC DIRECTOR Primary Care Provider Taylor Kitchen RN Unavailable Unav ailable Reason for Visit * Reason Onset Date Comments PMC Preprocedure 09/19/2024 Encounter Details Date Type Department Care Team (Late st Contact Info) Description 09/19/2024 Telephone [facility] [address] [facility] [address] [place], [place] [id number] Igor Graham MD [address] [place], [place] [phone] PMC Preprocedure Social History Tobacco Use Types Packs/Day Years Used Date Smoking Tobacco: Every Day Cigarettes Smokeless Tobacco: Never Comments:1 cigarette day Alcohol Use Standard Drinks/Week Comments Never 0 (1 standard drink = 0.6 oz pur e alcohol) rare [facility] Utilities Answer Date Recorded In the past 12 months has [employer], gas, oil, or water company threatened to [...] often do you attend chur ch or anglican services? Never 09/03/2024 Do you belong to any clubs o r organizations such as islam groups, unions, fraternal or athletic groups, or [...] any time in the past 12 m [facility], were you homeless or living in a skilled nursing (including now)? No 09/03/2024 Personal Safety Answer Date Recorded Have you ever been in or are you currently in a harmful physical or emotional relationship or is someone making you feel afraid or unsafe? Denies 09/02/2024 Comments No Sex and Gender Information Value Date Recorded Sex Assigned at Not on file Legal Sex Female 10:10 PM PATIENT REGISTRATION SPECIALIST Gender Identity Not on file Sexual [...] on filedocumented in this encounter Care Teams Auto Mechanic Apprentice Relationship Specialty Start Date End Date Lyly Fiore NP [address] [place] [address] PCP - General Nurse Practitioner 05/29/24 Beatriz Lee MD [address] [place] [address] Referring Physician Gastroenterology 07/25/19 Taylor Kitchen, watch and clock repairerEmissions Technician 05/29/24 documented as of this encounter
--- OUTSIDE RECORDS SUMMARY | 2024-10-05 21:07 | XMS_ITS | Clinical Summary ---
Author Organization [facility] Address [address] [place] [address] Phone Care Team Providers Care Clinical Quality Assurance Associate Name Role Phone Hermes Ramirez MD Primary Care Provider [phone] Allergies Active Allergy Reactions Criticality Noted Date [...] BEDTIME 2 Active Butalbital-APAP -Caff-Cod (Fioricet/Codei ne) [id number] MG Capsule Take by mouth. 2 Active [...] 07/26/2024 5:51 PM CDT Emergency [facility] Emergency [address] [place] [address] Gabriel Mcintyre PAC GERD (gastroesophageal reflux disease) [...] this topic Insurance MEDICA[place] [facility] [employer] Care Teams Clinical Quality Assurance Associate Relationship Specialty Start Date End Date Hermes Ramirez MD [address] [address] PCP - General Family Medicine 05/09/18
--- OUTSIDE RECORDS SUMMARY | 2024-10-05 21:08 | XMS_ITS | Encounter Summary ---
Author Organization [facility] Address [address] [place] [address] Care Team Providers Care Cradle Placer Name Role Phone Hermes Ramirez MD Primary Care Provider Reason for Visit * Reason Onset Date Comments Refill Request 09/06/2020 Encounter Details Date Type Department Care Team (Late st Contact Info) Description 09/06/2020 Refill [facility] [address] [phone] Allen Manzano PAVasquez [address] [facility] [address] [place] [phone] Refill Request Social History Tobacco Use Types Packs/Day Years Used Date Smoking Tobacco: Former Cigarettes 0.5 20 0 03/20/2000 - 03/20/2020 Smokeless Tobacco: Never Social Connections Answer Date Recorded Conversations with friends/family/neighbors per week Not on file 05/25/2020 Comments No Sex and Gender Information Value Date Recorded Sex Assigned at Not on file Legal Sex Female 1:03 PM HEARING AID SPECIALIST Gender Identity Not on file Sexual Orientation Not on file documented as of this encounter Plan of Treatment Not on file documented as of this encounter Visit Diagnoses Not on filedocumented in this encounter Additional Health Concerns Assessment Noted Time PHQ-2 Depression Total Score: 0 07/07/19 21 9:51 AM CDT documented as of this encounter Care Teams Cradle Placer Relationship Specialty Start Date End Date Hermes Ramirez MD [address] [place] [address] PCP - General 05/28/20 documented as of this encounter
--- OUTSIDE RECORDS SUMMARY | 2024-10-05 21:08 | XMS_ITS | Encounter Summary ---
Author Organization [facility] Address [address] [place] [address] Care Team Providers Care Senior Science Consultant Name Role Phone Hermes Ramirez MD Primary Care Provider Reason for Visit * Reason Onset Date Comments Refill Request 06/01/2023 Encounter Details Date Type Department Care Team (Late st Contact Info) Description 06/01/2023 Refill [facility] [address] [phone] Tico Salmon NP [address] [place] [address] Refill Request Social History Tobacco [...] Currently or in the past 3 m [facility], have you worried your food [...] on file 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
--- OUTSIDE RECORDS SUMMARY | 2024-10-05 21:08 | XMS_ITS | Encounter Summary ---
Author Organization [facility] Address [address] [place] [address] Care Team Providers Care Forcer Maker Name Role Phone Hermes Ramirez MD Primary Care Provider Reason for Visit * Reason Comments Refill Request Encounter Details Date Type Department Care Team (Late st Contact Info) Description 12/06/2023 Refill [facility] [address] [place], [place] [phone] Levi Sheriff, ELISA [address] [place] [address] Refill Request Social History Tobacco Use Types [...] Currently or in the past 3 m [facility], have you worried your food would run out before you had money to buy more? No 2023 In the past 12 months, have you run out of food or been unable to get more? 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
--- OUTSIDE RECORDS SUMMARY | 2024-10-05 21:08 | XMS_ITS | Encounter Summary ---
Author Organization [facility] Address [address] [place] [address] Care Team Providers Care Sander Machine Name Role Phone Hermes Ramirez MD Primary Care Provider Encounter Details Date Type Department Care Team (Late st Contact Info) Description 11/21/2023 Telephone [facility] Medicine [address] [place], [place] [phone] Ajith Wild MD [address] [facility] [address] [place], [place] [phone] Social History Tobacco Use Types Packs/Day Years [...] or in the past 3 m [facility], have you worried your food would run [...] on file 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
--- OUTSIDE RECORDS SUMMARY | 2024-10-05 21:08 | XMS_ITS | Encounter Summary ---
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 07/26/2024 4:32 PM CDT [facility] Reference 07/26/2024 4:32 PM CDT [facility] Tissue TISSUE SPECIMEN / Unknown 11/17/2023 07/24/2024 4:31 PM CDT [facility] Transplant-Liver LAB PATHOLOGY CYTOLOGY ORDERABLE Final Result Performing Organization Address City/[facility] Co de Phone Number [facility] [address] [place] [address] * AP Block Slide Request: (11/17/2023) AP Request The following 10 slides have been sent to [facility]. 07/26/2024 4:34 PM CDT [facility] Reference 07/26/2024 4:34 PM CDT [facility] Tissue TISSUE SPECIMEN / Unknown 11/17/2023 07/24/2024 4:31 PM CDT [facility] Transplant-Liver LAB PATHOLOGY CYTOLOGY ORDERABLE Final Result Performing Organization Address City/[facility] Co de Phone Number [facility] [address] [place] [address] documented in this encounter Visit Diagnoses Not on filedocumented in this encounter Additional Health Concerns Assessment Noted Time PHQ-9 Depression Total Score: 6 12/08/19 22 3:08 PM CDT PHQ-2 Depression Total Score: 0 06/23/19 23 10:20 AM CDT documented as of this encounter Care Teams Calender Supervisor Relationship Specialty Start Date End Date Hermes Ramirez MD [address] [place] [address] PCP - General 05/28/20 documented as of this encounter
--- OUTSIDE RECORDS SUMMARY | 2024-10-05 21:08 | XMS_ITS | Encounter Summary ---
Author Organization [facility] Address [address] [place] [address] Care Team Providers Care Paper Deliverer Name Role Phone Hermes Ramirez MD Primary Care Provider Reason for Visit * Reason Onset Date Comments Refill Request 09/02/2022 Encounter Details Date Type Department Care Team (Late st Contact Info) Description 09/02/2022 Refill [facility] [address] [phone] Tico Salmon NP [address] [place] [address] Refill Request Social History Tobacco [...] Currently or in the past 3 m [facility], have you worried your food would run out before you had money to buy more? No 2021 In the past 12 months, have you run out of food or been unable to get more? 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
--- OUTSIDE RECORDS SUMMARY | 2024-10-05 21:08 | XMS_ITS | Encounter Summary ---
Author Organization [facility] Address [address] [place] [address] Care Team Providers Care Clerical Secretary Name Role Phone Hermes Ramirez MD Primary Care Provider [phone] Reason for Visit * Reason Onset Date Comments Refill Request 09/06/2020 Encounter Details Date Type Department Care Team (Late st Contact Info) Description 09/06/2020 Refill [facility] [address] [facility] [address] [place], [place] [address] [place] [address] [place] [address] Refill Request Social History Tobacco Use Types Packs/Day Years Used Date Smoking Tobacco: Former Cigarettes 0.5 20 0 03/20/2000 - 03/20/2020 Smokeless Tobacco: Never Social Connections Answer Date Recorded Conversations with friends/family/neighbors per week Not on file 05/25/2020 Comments No Sex and Gender Information Value Date Recorded Sex Assigned at Not on file 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
--- OUTSIDE RECORDS SUMMARY | 2024-10-05 21:08 | XMS_ITS | Referral Summary ---
Author Organization [facility] Address [address] [place] [address] Care Team Providers Care Training Developer Name Role Phone Beatriz Lee MD Unavailable +- [phone] Lyly Fiore MEAT SUPERVISOR Primary Care Provider Taylor Kitchen RN Unavailable Unav ailable Encounters Date Type Department Care Team Description 09/26/2024 Telephone [facility] [address] [facility] [address] [place] [address] Igor Graham MD Post-Op Call 09/25/2024 8:48 AM CDT - 09/25/2024 11:59 PM CDT Hospital Encounter [facility] [address] [facility] [address] [place] [address] Igor Graham MD Lumbar disc disease with radiculopathy (Primary Dx); Lumbar spondylosis Discharge Disposition: Discharge to home or self care 09/19/2024 Telephone [facility] [address] [facility] Advanced [facility] [address] [place] [address] Igor Graham MD [facility] Preprocedure 09/09/2024 SHOP/CHAP Initial Eligibility Review [facility] OP CASE MANAGEMENT [address] [place] [address] Shireen Griffin RN 08/31/2024 11:48 PM CDT - 09/06/2024 4:45 PM CDT Hospital Encounter [facility] [address] [place] [address] Elisha Avila MD Freilich, MD Vicente Aguirre, Britta Alarcon MD Abdominal pain (Primary Dx); Liver transplant failure and rejection (HCC); Rhinovirus infection Discharge Disposition: Discharge to home or self care 08/27/2024 Telephone [facility] [address] [facility] Advanced [facility] [address] [place] [address] Igor Graham MD Pre Procedure 08/15/2024 Results Follow-Up [facility] Transplant Liver [address] [place] [address] [address] [phone] [place] [address] Taylor Kitchen RN Surgical pathology 08/15/2024 10:30 AM CDT Clinical Support [place] [address] [facility] 1st [place] [address] Brielle Carrillo, PhD 08/14/2024 12:21 PM CDT - 08/14/2024 11:59 PM CDT Hospital Encounter [facility] [address] [facility] [address] [place] [address] Igor Graham MD Lumbar spondylosis (Primary Dx); Lumbar disc disease with radiculopathy Discharge Disposition: Discharge to home or self care 08/02/2024 Orders Only [facility] [address] [place] [address] Beatriz Lee MD History of liver transplant (HCC); History of kidney transplant 08/01/2024 Telephone [facility] Transplant Liver [address] [facility] [address] [id number] [place] [address] Misty Vail RN 07/29/2024 Telephone [facility] Transplant Liver [address] [facility] [address] Mail[address] [phone] [place] [address] Lorena Turner 07/26/2024 2:55 PM CDT - 07/26/2024 2:56 PM CDT Emergency [facility] Emergency Department 1 [place] [address] Discharge Disposition: Left without being seen 07/24/2024 Telephone [facility] Transplant Liver [address] [place] [address] [address] [address] [place] [address] Lorena Turner 07/24/2024 9:45 AM CDT - 07/24/2024 11:59 PM CDT Hospital Encounter [facility] ([facility]) [address] [place] [address] Jessee Morton MD Lumbar spine pain; Adolescent idiopathic scoliosis of thoracic region Discharge Disposition: Discharge to home or self care 07/24/2024 10:00 AM CDT Office Visit [facility] Orthopaedic Surgery [address] [facility] 6th [place] [address] [place] [address] Jessee Morton MD Lumbar spine pain (Primary Dx); Adolescent idiopathic scoliosis of thoracic region; Chronic bilateral low back pain without sciatica 07/22/2024 Telephone [facility] Transplant Liver [address] [place] [address] [address] [phone] [place] [address] Dafne Dukes RN 07/19/2024 Telephone [facility] Transplant Liver [address] [place] [address] [address] Mailstop [phone] [place] [address] Karmen Garsia RN After Hours; Abdominal Pain 07/17/2024 Telephone [facility] Transplant Liver [address] [place] [address] [address] Mailstop [phone] [place] [address] Lorena Turner 07/12/2024 5:48 PM CDT - 07/12/2024 11:59 PM CDT Hospital Encounter [facility] ([facility]) [address] [place] [address], [place] [address] Discharge Disposition: Discharge to home or self care 07/12/2024 5:46 PM CDT - 07/12/2024 11:59 PM CDT Hospital Encounter [facility] ([facility]) [address] [place] [address] Discharge Disposition: Discharge to home or self care 07/12/2024 5:44 PM CDT - 07/12/2024 11:59 PM CDT Hospital Encounter [facility] ([facility]) [address] [place] [address] Discharge Disposition: Discharge to home or self care 07/12/2024 5:43 PM CDT - 07/12/2024 11:59 PM CDT Hospital Encounter [facility] ([facility]) [address] [place] [address] Discharge Disposition: Discharge to home or self care 07/12/2024 Telephone [facility] Nephrology [address] [place] [address] for Advanced Medicine 5th [place] [address] [place] [address] Wilson Swift MD 07/11/2024 Telephone [facility] Transplant Liver [address] [facility] [address] Mail[address] [facility] [place] [address] Dafne Dukes RN 07/11/2024 Telephone [facility] Transplant Liver [address] [facility] [address] [place] [address] Yulisa Welch 07/10/2024 Telephone [facility] Transplant Liver [address] [facility] [address] Mail[address] [phone] [place] [address] Liyah Kamara 07/09/2024 Telephone [facility] Transplant Liver [address] [facility] [address] Mailstop [phone] [place] [address] Dafne Dukes RN 07/09/2024 Telephone [facility] Transplant Liver [address] [facility] [address] Mailstop [phone] [place] [address] Yulisa Welch 07/09/2024 8:48 AM CDT - 07/09/2024 11:59 PM CDT Hospital Encounter [facility] ([facility]) [address] [place] [address] Discharge Disposition: Discharge to home or self care 07/09/2024 8:46 AM CDT - 07/09/2024 11:59 PM CDT Hospital Encounter [facility] ([facility]) [address] [place] [address] Discharge Disposition: Discharge to home or self care 07/09/2024 8:44 AM CDT - 07/09/2024 11:59 PM CDT Hospital Encounter [facility] ([facility]) [address] [place] [address] Discharge Disposition: Discharge to home or self [...] t be different from the original. Lab: [facility]. . . Pharmacy: [place], [place] Patient enrolled in [employer] assistance program for [employer] until 03/2025 -[employer] [...] with baseline creatinine ~2. Previously followed at [facility], but has she has been wanting to transfer care to [place] but has not been able to schedule an appointment. She follows with [facility] Transplant Hepatology. Per Liver Transplant office [...] with baseline creatinine ~2. Previously followed at [facility], but has she has been wanting to transfer care to [place] but has not been able to schedule an appointment. She follows with [facility] Transplant Hepatology. Per Liver Transplant office [...] with baseline creatinine ~2. Previously followed at [facility], but has she has been wanting to transfer care to [place] but has not been able to schedule an appointment. She follows with [facility] Transplant Hepatology. Per Liver Transplant office [...] with baseline creatinine ~2. Previously followed at [facility], but has she has been wanting to transfer care to [place] but has not been able to schedule an appointment. She follows with [facility] Transplant Hepatology. Per Liver Transplant office [...] with baseline creatinine ~2. Previously followed at [facility], but has she has been wanting to transfer care to [place] but has not been able to schedule an appointment. She follows with [facility] Transplant Hepatology. Per Liver Transplant office [...] with baseline creatinine ~2. Previously followed at [facility], but has she has been wanting to transfer care to [place] but has not been able to schedule an appointment. She follows with [facility] Transplant Hepatology. Per Liver Transplant office [...] with baseline creatinine ~2. Previously followed at [facility], but has she has been wanting to transfer care to [place] but has not been able to schedule an appointment. She follows with [facility] Transplant Hepatology. Per Liver Transplant office [...] with baseline creatinine ~2. Previously followed at [facility], but has she has been wanting to transfer care to [place] but has not been able to schedule an appointment. She follows with [facility] Transplant Hepatology. Per Liver Transplant office [...] with baseline creatinine ~2. Previously followed at [facility], but has she has been wanting to transfer care to [place] but has not been able to schedule an appointment. She follows with [facility] Transplant Hep[facility]ology. Per Liver Transplant office [...] with baseline creatinine ~2. Previously followed at [facility], but has she has been wanting to transfer care to [place] but has not been able to schedule an appointment. She follows with [facility] Transplant Hep[facility]ology. Per Liver Transplant office [...] with baseline creatinine ~2. Previously followed at [facility], but has she has been wanting to transfer care to [place] but has not been able to schedule an appointment. She follows with [facility] Transplant Hepatology. Per Liver Transplant office [...] we would not be able to prescribe care home opioids on discharge. Discussed importance of outpatient [...] we would not be able to prescribe care home opioids on discharge. Discussed importance of outpatient [...] we would not be able to prescribe termite treater opioids on discharge. Discussed importance of outpatient [...] we would not be able to prescribe care home opioids on discharge. Discussed importance of outpatient [...] we would not be able to prescribe care home opioids on discharge. Discussed importance of outpatient [...] we would not be able to prescribe care home opioids on discharge. Discussed importance of outpatient [...] we would not be able to prescribe termite treater opioids on discharge. Discussed importance of outpatient [...] we would not be able to prescribe termite treater opioids on discharge. Discussed importance of outpatient [...] we would not be able to prescribe termite treater opioids on discharge. Discussed importance of outpatient [...] we would not be able to prescribe care home opioids on discharge. Discussed importance of outpatient [...] we would not be able to prescribe care home opioids on discharge. Discussed importance of outpatient [...] we would not be able to prescribe care home opioids on discharge. Discussed importance of outpatient [...] with baseline creatinine ~2. Previously followed at [facility], but has she has been wanting to transfer care to [place] but has not been able to schedule an appointment. She follows with [facility] Transplant Hep[facility]ology. Per Liver Transplant office [...] with baseline creatinine ~2. Previously followed at [facility], but has she has been wanting to transfer care to [place] but has not been able to schedule an appointment. She follows with [facility] Transplant Hepatology. Per Liver Transplant office [...] with baseline creatinine ~2. Previously followed at [facility], but has she has been wanting to transfer care to [place] but has not been able to schedule an appointment. She follows with [facility] Transplant Hep[facility]ology. Per Liver Transplant office [...] with baseline creatinine ~2. Previously followed at [facility], but has she has been wanting to transfer care to [place] but has not been able to schedule an appointment. She follows with [facility] Transplant Hep[facility]. Per Liver Transplant office [...] with baseline creatinine ~2. Previously followed at [facility], but has she has been wanting to transfer care to [place] but has not been able to schedule an appointment. She follows with [facility] Transplant Hep[facility]ology. Per Liver Transplant office [...] with baseline creatinine ~2. Previously followed at [facility], but has she has been wanting to transfer care to [place] but has not been able to schedule an appointment. She follows with [facility] Transplant Hepatology. Per Liver Transplant office [...] Transplant starting process of assuming care from [facility], but in short term they recommend patient follow up with renal transplant at [facility]. - She is NOW actively enrolled in the [employer] free patient assistance program through mar 2025 - script needs to be sent to [facility] (sent). Hyperbilirubinemia 04/16/2020 Assessment & Plan (04/16/2020 5:01 AM AUDIT SPEC): - T. Bili of 7 (last was [...] 07/25/2019 Assessment & Plan (04/16/2020 2:25 AM AUDIT SPEC): See hyperbili problem. Concern for ascites Assessment [...] 12/14/2016 Assessment & Plan (04/16/2020 2:26 AM AUDIT SPEC): - Chronic, concerned that this may be [...] kidney transplant 04/2020. 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 We would need to call [facility] to identify a contracted center ([phone]). She lives close enough to [place] that would be the most likely city she could travel to. She also noted that she could always remarry an ex- as he has insurance that may be covered at [facility]/. Appreciate note from nephrology and agree with restarting oral diuretics. Can continue tacrolimus at the current dose. MRI/MRCP completed and will review with radiology to identify if any role for PTC. Assessment & Plan (04/16/2020 2:26 AM AUDIT SPEC): S/p liver tranplant in 1992 for biliary [...] meds Assessment & Plan (04/16/2020 5:01 AM AUDIT SPEC): Unclear if progression of CKD vs acute [...] Cr of 1.8. She follows with local printing sales representative Dr. Mathew and thinks her baseline is 2.1. She was at 2.3 at OSH. She took some diuretics at home and was given lasix at OSH ED. --UA, urine lytes --get records from her printing sales representative to find out baseline --random tacro level --monitor Is & Os; avoid nephrotoxins Social History Tobacco Use Types Packs/Day Years Used Date Smoking Tobacco: Every Day Cigarettes Smokeless Tobacco: Never Tobacco Cessation:Ready to Q uit: Not Asked; Counseling Given: Not Answered Comments:1 cigarette day Alcohol Use Standard Drinks/Week Comments Never 0 (1 standard drink = 0.6 oz pur e alcohol) rare [facility] Utilities Answer Date Recorded In the past 12 months has Ellie, gas, oil, or water [employer] threatened to shut off services in your [...] often do you attend chur ch or congregational services? Never 09/03/2024 Do you belong to any clubs o r organizations such as alevism groups, unions, fraternal or athletic groups, or [...] any time in the past 12 m [facility], were you homeless or living in a half-way (including now)? No 09/03/2024 Personal Safety Answer Date Recorded Have you ever been in or are you currently in a harmful physical or emotional relationship or is someone making you feel afraid or unsafe? Denies 09/02/2024 Comments No Sex and Gender Information Value Date Recorded Sex Assigned at Not on file Legal Sex Female 10:10 PM AUDIT SPEC Gender Identity Not on [...] CDT HEPATITIS PANEL, ACUTE Routine 6:35 AM AUDIT SPEC from Last 3 Months or Most Recently Relevant to Health Maintenance Results * Imaging Lumbar/Sacral Facet Medial Branch Block Bilateral (56343) (09/25/2024 9:47 AM CDT) Narrative RAD_PACS_BJ - [...] ORDERABLES Aniya l Result Performing Organization Address City/[facility]/ZIP Co de Phone Number [facility] Department [place] [address] * Tacrolimus level trough (09/06/2024 9:48 AM CDT) Tacrolimus trough 6.4 ng/mL Comment: Interpretive Data Testing performed by liquid chromatography-tandem mass spectrometry. Therapeutic concentrations vary depending on type of transplanted organ and time elapsed since transplant. Typical trough concentrations range from 5-15 ng/mL. This test was developed and its performance characteristics determined by the [facility] consistent with CLIA requirements. This test has not been cleared or approved by the [place] Food and Drug administration. Current interpretive data last reviewed 2019. Blood 09/06/2024 9:48 AM CDT 09/06/2024 10:15 AM CDT Lily Rico MD LAB BLOOD ORDERABLES Final Result [facility] Department [place] [address] * (ABNORMAL) Comprehensive metabolic panel (09/06/2024 9:48 [...] ORDERABLES Aniya l Result Performing Organization Address City/[facility]/ZIP Co de Phone Number [facility] Department [place] [address] * (ABNORMAL) eGFR (09/05/2024 10:47 AM CDT) [...] ORDERABLES Aniya l Result [facility] [place] [address] * Differential, auto (09/05/2024 10:47 AM CDT) Neutrophil abs 3.84 1.50 - 6.50 K/cumm Imm gran abs 0.03 0.00 - 0.10 K/cumm [facility] Lymphocyte abs 1.33 0.80 - 3.30 K/cumm [facility] Monocyte abs 0.30 0.20 - 0.80 K/cumm [facility] Eosinophil abs 0.15 0.00 - 0.50 K/cumm [facility] Basophil abs 0.01 0.00 - 0.10 K/cumm [facility] Neutrophil pct 67.8 % [facility] Comment: Interpretive Data Percent cell [...] revised on 2017. Lymphocyte pct 23.5 % [facility] Comment: Interpretive Data Percent cell count reference ranges are not reported, since discordance with absolute values may lead to misinterpretation of CBC data. Current Interpretive Data was last revised on 2017. Monocyte pct 5.3 % [facility] Comment: Interpretive Data Percent cell count reference ranges are not reported, since discordance with absolute values may lead to misinterpretation of CBC data. Current Interpretive Data was last revised on 2017. Eosinophil pct 2.7 % [facility] Comment: Interpretive Data Percent cell count reference ranges are not reported, since discordance with absolute values may lead to misinterpretation of CBC data. Current Interpretive Data was last revised on 2017. Basophil pct 0.2 % [facility] Comment: Interpretive Data Percent cell count reference ranges are not reported, since discordance with absolute values may lead to misinterpretation of CBC data. Current Interpretive Data was last revised on 2017. Blood 09/05/2024 10:4 7 AM CDT 09/05/2024 11:03 AM CDT Britta Zhang MD LAB BLOOD ORDERABLES Aniya l Result Performing Organization Address [facility] Co de Phone Number [facility] Department [place] [address] * Tacrolimus level trough (09/05/2024 10:47 AM CDT) [facility] Tacrolimus trough 6.2 ng/mL Comment: Interpretive Data Testing performed by liquid chromatography-tandem mass spectrometry. Therapeutic concentrations vary depending on type of transplanted organ and time elapsed since transplant. Typical trough concentrations range from 5-15 ng/mL. This test was developed and its performance characteristics determined by the [facility] consistent with CLIA requirements. This [...] Organization Address [facility] Co de Phone Number [facility] Department [place] [address] * (ABNORMAL) CBC with auto differential (09/05/2024 10:47 AM CDT) [facility] WBC 5.66 3.80 - 9.90 K/cumm Hgb [...] l Result [facility] [place] [address] * (ABNORMAL) Comprehensive metabolic panel (09/05/2024 10:47 [...] Calcium 9.0 8.5 - 10.3 mg/dL [facility] Bilirubin, total 0.7 0.1 - 1.2 mg/dL [facility] Protein, pl 6.4(L) 6.5 - 8.5 g/dL [facility] Albumin 3.7 3.5 - 5.0 g/dL [facility] Alk phos 257(H) 40 - 130 Units/L [facility] ALT 18 7 - 45 Units/L [facility] AST 27 10 - 45 Units/L [facility] Blood 09/05/2024 10:4 7 AM CDT 09/05/2024 11:03 AM CDT us Britta Zhang MD LAB BLOOD ORDERABLES Aniya l Result [facility] Department [place] [address] * (ABNORMAL) eGFR (09/04/2024 5:03 AM CDT) [...] andrez Result [facility] Department [place] [address] * Differential, auto (09/04/2024 5:03 AM CDT) Pathologist [facility] Neutrophil abs 2.68 1.50 - 6.50 K/cumm Imm gran abs 0.01 0.00 - 0.10 K/cumm [facility] Lymphocyte abs 1.03 0.80 - 3.30 K/cumm [...] ORDERABLES Aniya l Result Performing Organization Address City/[facility] Co de Phone Number [facility] Department [place] [address] * Tacrolimus level trough (09/04/2024 5:03 AM CDT) Pathologist [facility] Tacrolimus trough 10.9 ng/mL Comment: Interpretive Data Testing performed by liquid chromatography-tandem mass spectrometry. Therapeutic concentrations vary depending on type of transplanted organ and time elapsed since transplant. Typical trough concentrations range from 5-15 ng/mL. This test was developed and its performance characteristics determined by the [facility] consistent with CLIA requirements. This [...] ORDERABLES Aniya l Result Performing Organization Address City/[facility] Co de Phone Number [facility] Department [place] [address] * (ABNORMAL) CBC with auto differential (09/04/2024 5:03 AM CDT) Pathologist [facility] WBC 4.04 3.80 - 9.90 K/cumm Hgb [...] l Result [facility] [place] [address] * (ABNORMAL) Comprehensive metabolic panel (09/04/2024 5:03 [...] Calcium 8.5 8.5 - 10.3 mg/dL [facility] Bilirubin, total 0.8 0.1 - 1.2 mg/dL [facility] Protein, pl 6.6 6.5 - 8.5 g/dL [facility] Albumin 3.5 3.5 - 5.0 g/dL [facility] Alk phos 240(H) 40 - 130 Units/L [facility] ALT 12 7 - 45 Units/L [facility] AST 31 10 - 45 Units/L [facility] Blood 09/04/2024 5:03 AM CDT 09/04/2024 5:10 AM CDT Britta Zhang MD LAB BLOOD ORDERABLES Aniya l Result [facility] Department [place] [address] * (ABNORMAL) eGFR (09/03/2024 5:21 AM CDT) [...] AM CDT 09/03/2024 5:31 AM CDT us Britat Zhang MD LAB BLOOD ORDERABLES Aniya andrez Result [facility] [place] [address] * Differential, auto (09/03/2024 5:21 AM CDT) Neutrophil abs 3.79 1.50 - 6.50 K/cumm Imm gran abs 0.03 0.00 - 0.10 K/cumm [facility] Lymphocyte abs 0.84 0.80 - 3.30 K/cumm [facility] Monocyte abs 0.25 0.20 - 0.80 K/cumm [facility] Eosinophil abs 0.05 0.00 - 0.50 K/cumm [facility] Basophil abs 0.00 0.00 - 0.10 K/cumm [facility] Neutrophil pct 76.5 % [facility] [...] Organization Address [facility] de Phone Number [facility] [place] [address] * Tacrolimus level trough (09/03/2024 5:21 AM CDT) [facility] Tacrolimus trough 17.8 ng/mL Comment: Interpretive Data Testing performed by liquid chromatography-tandem mass spectrometry. Therapeutic concentrations vary depending on type of transplanted organ and time elapsed since transplant. Typical trough concentrations range from 5-15 ng/mL. This test was developed and its performance characteristics determined by the [facility] consistent with CLIA requirements. This test has not been cleared or approved by the US Food and Drug administration. Current interpretive data last reviewed 2019. Blood 09/03/2024 5:21 AM CDT 09/03/2024 5:31 AM CDT Narrative [facility] - 09/03/2024 9:19 AM CDT Draw exactly 12 HOURS after last dose of tacrolimus was given and just BEFORE giving next dose Britta Zhang MD LAB BLOOD ORDERABLES Aniya l Result Performing Organization Address [facility] Co de Phone Number [facility] [place] [address] * (ABNORMAL) CBC with auto differential (09/03/2024 5:21 AM CDT) [facility] WBC 4.96 3.80 - 9.90 K/cumm Hgb [...] maguire Result [facility] [place] [address] * (ABNORMAL) Comprehensive metabolic panel (09/03/2024 5:21 AM CDT) [facility] Sodium 138 135 - 145 mmol/L Potassium, [...] l Result [facility] [place] [address] * BK virus PCR quantitative Blood (09/02/2024 12:21 PM CDT) [facility] BKV DNA result, pl Not Detected [facility] Comment: The quantifiable range of this assay is 21.5 IU/mL to 100,000,000 IU/mL (1.33 log IU/mL to 8.00 log IU/mL). Testing was performed by the JOHNNY 6800 BKV Quantatitive Test version 2.0 ([employer] Testing performed at [facility] Current Interpretive Data was last revised on 2021. Blood 09/02/2024 12:2 1 PM CDT 09/02/2024 12:52 PM CDT Britta Zhang MD LAB MICROBIOLOGY - GENERA L ORDERABLES Final Result [facility] [place] [address] [facility] * HLA Donor Specific Antibody Report (09/02/2024 [...] Organization Address [facility] Co de Phone Number [facility] * Collection Task for HLA Antibody Screen (09/02/2024 12:21 PM CDT) HLA Antibody Screen By Single Antigen Received Blood 09/02/2024 12:2 1 PM CDT 09/03/2024 10:59 AM CDT Britta Zhang MD LAB BLOOD ORDERABLES Aniya l Result [facility] [place] [address] * Cytomegalovirus (CMV) DNA PCR, quantitative Blood (09/02/2024 12:21 PM CDT) CMV DNA Not Detected [facility] Comment: Interpretive Data: The quantifiable range of this assay is 34 IUnits/mL to 10,000,000 IUnits/mL (1.53 log IUnits/mL to 7.0 log IUnits/mL). Testing was performed by the JOHNNY 6800 CMV Test ([employer] Testing performed at [facility]. Current interpretive data was last revised on 2020. Blood 09/02/2024 12:2 1 PM CDT 09/02/2024 12:52 PM CDT us Britta Zhang MD LAB MICROBIOLOGY - GENERA L ORDERABLES Final Result Performing Organization Address City/State/[facility] Co de Phone Number [facility] [place] [address] [facility] * (ABNORMAL) eGFR (09/02/2024 12:21 PM CDT) [...] LAB BLOOD ORDERABLES Aniya l Result [facility] Department [place] [address] * Blood culture Blood (09/02/2024 12:21 PM [...] characteristics have been verified by the [facility]. For questions about this culture, contact the Microbiology Laboratory at [phone]. Interpretive data was last revised on 24. us Britta Zhang MD LAB MICROBIOLOGY - GENERA L ORDERABLES Final Result Performing Organization Address City/[facility]/ZIP Co de Phone Number [facility] [place] [address] * Blood culture Blood (09/02/2024 12:21 PM [...] characteristics have been verified by the [facility]. For questions about this culture, contact the Microbiology Laboratory at [phone]. Interpretive data was last revised on 24. us Britta Zhang MD LAB MICROBIOLOGY - GENERA L ORDERABLES Final Result [facility] Department [place] [address] * (ABNORMAL) Renal function panel (09/02/2024 12:21 [...] l Result [facility] [place] [address] * (ABNORMAL) eGFR (09/02/2024 5:16 AM CDT) [...] Final Result [facility] [place] [address] * Differential, auto (09/02/2024 5:16 AM CDT) [...] Organization Address [facility] de Phone Number [facility] [place] [address] * Tacrolimus level trough (09/02/2024 5:16 AM CDT) Pathologist [facility] Tacrolimus trough 17.0 ng/mL Comment: Interpretive Data Testing performed by liquid chromatography-tandem mass spectrometry. Therapeutic concentrations vary depending on type of transplanted organ and time elapsed since transplant. Typical trough concentrations range from 5-15 ng/mL. This test was developed and its performance characteristics determined by the [facility] consistent with CLIA requirements. This test has not been cleared or approved by the US Food and Drug administration. Current interpretive data last reviewed 2019. Blood 09/02/2024 5:16 AM CDT 09/02/2024 5:32 AM CDT us Britta Zhang MD LAB BLOOD ORDERABLES Aniya l Result Performing Organization Address [facility] Co de Phone Number [facility] Department [place] [address] * (ABNORMAL) CBC with auto differential (09/02/2024 5:16 AM CDT) Pathologist [facility] WBC 5.45 3.80 - 9.90 K/cumm Hgb [...] Final Result [facility] [place] [address] * (ABNORMAL) Comprehensive metabolic panel (09/02/2024 5:16 [...] Calcium 9.0 8.5 - 10.3 mg/dL [facility] Bilirubin, total 1.0 0.1 - 1.2 mg/dL [facility] Protein, pl 6.3(L) 6.5 - 8.5 g/dL [facility] Albumin 3.8 3.5 - 5.0 g/dL [facility] Alk phos 223(H) 40 - 130 Units/L [facility] ALT 11 7 - 45 Units/L [facility] AST 24 10 - 45 Units/L [facility] Blood 09/02/2024 5:16 AM CDT 09/02/2024 5:32 AM CDT us Bailee Valiente MD LAB BLOOD ORDERABLES Final Result [facility] [place] [address] * Troponin I high-sensitivity 2-hour (09/01/2024 2:58 AM CDT) Trop I hs 5 <=17 ng/L Comment: Interpretive Data For further hscTnI resources including the diagnostic algorithm and an aid in interpretation, copy and paste this link: https://bjhlab.testcatalog.org/show/[email or web address] Current Interpretive Data last revised 2019. Trop I hs delta 0 ng/L [facility] Trop I hs interp Insignificant [facility] Blood 09/01/2024 2:58 AM CDT 09/01/2024 3:13 AM CDT us Diana Cassidy MD LAB BLOOD ORDERABLES Fi nal Result [facility] [place] [address] * ECG 12-LEAD (09/01/2024 2:53 AM CDT) Narrative [facility] - 09/01/2024 2:53 AM CDT Elisha Avila MD 09/01/2024 3:24 AM ECG 12 lead Date/Time: 09/01/2024 2:53 AM Performed by: Elisha Avila MD Authorized by: Diana Cassidy MD us Diana Cassidy MD ECG ORDERABLES Final R esult Performing Organization Address [facility] Co de Phone Number [facility] * XR Chest PA Lateral 2 [...] and read back by: Flower Moser MD ([phone]) on 09/02/2024 03:01:57 by: Radu Helm MT Direct Specimen Exam Stain: Gram Positive Cocci in clusters Time to culture positivity (anaerobic media): 21.4 hours Notification of: Gram Positive Cocci in clusters called to and read back by: Flower Moser MD ([phone]) on 09/02/2024 01:01:22 by: Radu Helm MT [...] characteristics have been verified by the [facility]. For questions about this culture, contact the Microbiology Laboratory at [phone]. Interpretive data was last revised on 24. us Diana Cassidy MD LAB MICROBIOLOGY - GENE RAL ORDERABLES Final Result [facility] [place] [address] * US Renal Transplant W Dopplers (09/01/2024 [...] Soto Mena M.D., Ph.D Diana Cassidy MD [facility] US PROCEDURES Final Result * (ABNORMAL) Respiratory pathogen panel Nasopharyngeal (09/01/2024 12:58 AM CDT) Influenza A RNA Not Detected Not Detected Influenza B RNA Not Detected Not Detected [facility] RSV RNA Not Detected Not Detected [facility] COVID-19 RNA Not Detected Not Detected [facility] Coronavirus 229E RNA Not Detected Not Detected [facility] Coronavirus HKU1 RNA Not Detected Not [...] testing for transplant patient?->No Interpretive Data The [employer] FilmArray Respiratory Panel (RP2.1) assay is a [...] assay has FDA clearance for testing of MEAT [employer]PER[employer]OR swabs. The performance of additional specimen types has been assessed by the performing laboratory. The performance characteristics of this assay have been determined by [facility] Molecular Infectious Disease Laboratory. Current interpretive data was last revised on 21. Diana Cassidy MD LAB MICROBIOLOGY - GENE RAL ORDERABLES Final Result [facility] Department [place] [address] * Troponin I high-sensitivity series (baseline, 2hr, [...] ORDERABLES Fi nal Result [facility] [place] [address] * Sepsis Lactate w/ Reflex (09/01/2024 12:57 AM CDT) Sepsis Lactate 1.8 0.7 - 2.0 mmol/L Blood 09/01/2024 12:5 7 AM CDT 09/01/2024 1:14 AM CDT Diana Cassidy MD LAB BLOOD ORDERABLES Fi nal Result Performing Organization Address City/State/[facility] Co de Phone Number [facility] [place] [address] * (ABNORMAL) eGFR (09/01/2024 12:57 AM CDT) Pathologist [facility] eGFR 26(L) >=60 mL/min/1. 73 m2 Comment: [...] ORDERABLES Fi nal Result [facility] [place] [address] * Differential, auto (09/01/2024 12:57 AM CDT) Neutrophil abs 4.42 1.50 - 6.50 K/cumm Imm gran abs 0.03 0.00 - 0.10 K/cumm [facility] Lymphocyte abs 1.17 0.80 - 3.30 K/cumm [facility] Monocyte abs 0.38 0.20 - 0.80 K/cumm [facility] Eosinophil abs 0.10 0.00 - 0.50 K/cumm [facility] Basophil abs 0.02 0.00 - 0.10 K/cumm [facility] Neutrophil pct 72.3 % [facility] Comment: Interpretive Data Percent cell [...] revised on 2017. Monocyte pct 6.2 % [facility] Comment: Interpretive Data Percent cell count reference ranges are not reported, since discordance with absolute values may lead to misinterpretation of CBC data. Current Interpretive Data was last revised on 2017. Eosinophil pct 1.6 % [facility] Comment: Interpretive Data Percent cell count reference ranges are not reported, since discordance with absolute values may lead to misinterpretation of CBC data. Current Interpretive Data was last revised on 2017. Basophil pct 0.3 % [facility] Comment: Interpretive Data Percent cell count reference ranges are not reported, since discordance with absolute values may lead to misinterpretation of CBC data. Current Interpretive Data was last revised on 2017. Blood 09/01/2024 12:5 7 AM CDT 09/01/2024 1:20 AM CDT Diana Cassidy MD LAB BLOOD ORDERABLES Fi nal Result Performing Organization Address City/[facility]/ZIP Co de Phone Number [facility] Department [place] [address] * (ABNORMAL) Urinalysis reflex to microscopic and [...] tendency for uric acid stone formation. Source: [facility] Current Interpretive Data was last revised [...] RAL ORDERABLES Final Result Performing Organization Address [facility]/ZIP Co de Phone Number [facility] Department [place] [address] * (ABNORMAL) CBC with auto differential (09/01/2024 [...] nal Result [facility] [place] [address] * Tacrolimus level random (09/01/2024 12:57 AM CDT) Tacrolimus random 23.8 ng/mL Comment: Interpretive Data Testing performed by liquid chromatography-tandem mass spectrometry. Therapeutic concentrations vary depending on type of transplanted organ and time elapsed since transplant. Typical trough concentrations range from 5-15 ng/mL. This test was developed and its performance characteristics determined by the [facility] consistent with CLIA requirements. This test has not been cleared or approved by the US Food and Drug administration. Current interpretive data last reviewed 2019. Blood 09/01/2024 12:5 7 AM CDT 09/01/2024 1:20 AM CDT Diana Cassidy MD LAB BLOOD ORDERABLES Fi nal Result [facility] [place] [address] * Blood culture Blood (09/01/2024 12:57 AM CDT) Report Final Report: No growth Blood 09/01/2024 12:5 7 AM CDT 09/01/2024 1:35 AM CDT Narrative [facility] - 09/05/2024 7:00 AM CDT Collection->Peripheral 1. [...] characteristics have been verified by the [facility]. For questions about this culture, contact the Microbiology Laboratory at [phone]. Interpretive data was last revised on 24. Diana Cassidy MD LAB MICROBIOLOGY - GENE RAL ORDERABLES Final Result Performing Organization Address [facility]/ZIP Co de Phone Number [facility] [place] [address] * Phosphorus (09/01/2024 12:57 AM CDT) Phosphorus, pl 2.9 2.3 - 4.5 mg/dL Blood 09/01/2024 12:5 7 AM CDT 09/01/2024 1:20 AM CDT Diana Cassidy MD LAB BLOOD ORDERABLES Fi nal Result Performing Organization Address City/[facility] Co de Phone Number [facility] [place] [address] * Magnesium (09/01/2024 12:57 AM CDT) [facility] Magnesium 1.5 1.4 - 2.5 mg/dL Blood 09/01/2024 12:5 7 AM CDT 09/01/2024 1:20 AM CDT Diana Cassidy MD LAB BLOOD ORDERABLES Fi nal Result Performing Organization Address [facility] de Phone Number [facility] [place] [address] * Lipase (09/01/2024 12:57 AM CDT) [facility] Lipase 19 10 - 99 Units/L Blood 09/01/2024 12:5 7 AM CDT 09/01/2024 1:20 AM CDT Diana Cassidy MD LAB BLOOD ORDERABLES Fi nal Result Performing Organization Address City/[facility] de Phone Number [facility] [place] [address] * (ABNORMAL) Comprehensive metabolic panel (09/01/2024 12:57 AM CDT) Pathologist [facility] Sodium 138 135 - 145 mmol/L Potassium, [...] nal Result [facility] [place] [address] * Surgical pathology (08/02/2024 9:18 AM CDT) Tissue (Miscellaneous) 08/02/2024 9:18 AM CDT 08/02/2024 9:18 AM CDT Narrative [facility]Y LAB - 08/14/2024 2:01 PM CDT EPIC results best viewed via link to PDF [facility] Pathology Consult Service [address], [place] [address] Note to Patients: This report [...] SURGICAL PATHOLOGY REPORT * Consult Report * [facility] is providing an additional review of previously collected tissue. FINAL Patient Name: MISHA BROWNE Address: [address] [place], [place] [id number] Gender: F : 1980 (Age: 43) Hospital #: [id number] Patient Type: [facility] Location: UNKNOWN Taken: 08/02/2024 Received: 08/02/2024 Accessioned: 08/05/2024 Reported: 08/14/2024 Physician(s): Beatriz Lee M.D. [facility] Department of Pathology [address] [place] [address] P: [phone] F: [phone] Diagnosis: Consult material received from [place], [place] (OSC: [id number]; 11/17/2023) A. 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 Course was complicated by biopsy [...] show moderate inflammatory infiltrate. There is patchy [id number] tubulitis. Small arteries and arterioles show mild [...] Received for review are ten slides labeled [id number], and nine slides labeled [id number], accompanied by a corresponding pathology report. The material originates from [facility], [place], [place]. Selected slide(s) may be digitally scanned [...] occasional mononuclear cells Arteriolar hyalinosis (ah): ah1 [id number] PAS-positive hyaline thickening in at least one [...] the Department of Pathology and Immunology at [facility], [address] [place] [id number] CLIA # [id number] The performance characteristics of the testing cited in this report (if any) were determined by the [facility] Department of Pathology and Immunology [facility], as part of an ongoing clinical quality rn program and in compliance with federally mandated [...] and the performance characteristics determined by the [facility], [facility] Department of Pathology and Immunology. It has not been cleared or approved by the U.S. Food and Drug Administration. Any test designated as LDT was developed and its performance characteristics determined by [facility]. It has not been cleared or approved by the FDA. This test is used for clinical purposes and should not be regarded as investigational or for research. Report images and/or scanned reports, if included, only viewable in PDF version of report. us Beatriz Lee MD LAB PATHOLOGY ORDERA BLES Final Result [facility] LAB [address] [address] * XR Scoliosis 6 or More Views [...] Electronically signed by: Carlos Hayes D.O. Result [facility] Jessee Morton MD IMG XR PROCEDURES [...] EXAMINATION: Images For Reference Purposes Only Result [facility] Jessee Morton MD IMG CT PROCEDURES Final Re sult Performing Organization Address [facility] de Phone Number [email or web address] * [...] EXAMINATION: Images For Reference Purposes Only Result [facility] Jessee Morton MD IMG CT PROCEDURES Final Re sult Performing Organization Address [facility] Co de [...] For Reference Purposes Only Jessee Morton MD [facility] MRI PROCEDURES Final R esult Performing Organization Address [facility] de Phone Number [email or web address] * [...] For Reference Purposes Only Jessee Morton MD [facility] MRI PROCEDURES Final R esult Performing Organization Address [facility] de Phone Number [email or web address] * [...] Organization Address [facility] de Phone Number [email or web address] * [...] Organization Address [facility]/REHABILITATION [facility] Co de Phone Number RAD_PACS_[facility] * XR Outside Reference (07/09/2024 8:44 AM CDT) Impressions RAD_BERTA - 07/09/2024 8:44 AM CDT These images are for Reference purposes only and have not been reviewed by [facility] Radiology. There will be no report generated by a [facility] Radiologist. Narrative RAD_PACS_KOFFI - 07/09/2024 8:44 AM CDT EXAMINATION: Images For Reference Purposes Only us Jessee Morton MD IMG XR PROCEDURES Final Re sult Performing Organization Address [facility] de Phone Number RAD_PACS_[facility] * Hepatitis panel, acute (04/16/2020 6:35 AM AUDIT SPEC) Hep A IgM Nonreactive Nonreactive [facility] [place] Comment: Interpretive Data: If Hep A IgM Ab is reported as Equivocal, a new sample should be drawn in two weeks for testing. Current interpretive data was last revised on 19. Hep B core IgM Nonreactive Nonreactive [facility] Comment: Interpretive Data If HepB [...] [place] Blood specimen (specimen) 04/16/2020 6:35 AM AUDIT SPEC 04/16/2020 7:34 AM AUDIT SPEC Jacob Gates MD LAB MICROBIOLOGY - GENER AL ORDERABLES Final Result Performing Organization Address [facility] de Phone Number [facility] [address] [facility] [place] [address] from Last 3 Months or Most Recently Relevant to Health Maintenance Insurance [employer] OPEN ACCESS [employer] [facility] [employer] [place] Advance Directives For more information, please contact: [phone] * Full Code (Latest Code Status on [...] 6:15 AM 07/25/2019 11:51 PM Care Teams Training Developer Relationship Specialty Start Date End Date Lyly Fiore NP [address] [place] [address] PCP - General Nurse Practitioner 05/29/24 Beatriz Lee MD [address] [place] [address] Referring Physician Gastroenterology 07/25/19 Taylor Kitchen, motel managerChildren'S Aide 05/29/24
--- OUTSIDE RECORDS SUMMARY | 2024-10-05 21:08 | XMS_ITS | Encounter Summary ---
Author Organization [facility] Address [address] [facility] [place] [address] Care Team Providers Care Information Technology Specialist Name Role Phone Hermes Ramirez MD Primary Care Provider Reason for Visit * Reason Onset Date Comments Refill Request 06/01/2023 Encounter Details Date Type Department Care Team (Late st Contact Info) Description 06/01/2023 Refill [facility] [address] [address] Marion Pedroza MD [address] [place] [address] Refill Request Social History Tobacco [...] Currently or in the past 3 m [facility], have you worried your food would [...] file 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
--- OUTSIDE RECORDS SUMMARY | 2024-10-05 21:08 | XMS_ITS ---
Author Organization [facility] Address [address] [place] [address] Care Team Providers Care Billing And Accounting Staff Assistant Name Role Phone Beatriz Lee MD Unavailable [phone] Lyly Fiore MILLINERY SALESPERSON Primary Care Provider Taylor Kitchen RN Unavailable Unav ailable Transplant Episode Liver Recipient [facility] ([place], [place]) - [facility] Transplanted on 05/09/2020 Marked as Active Follow-up on 07/01/2024 Reason: In Transition Process Liver CoordinatorTaylor Kitchen RN Phone: N/A Fax: N/A Email: N/A Transplanted Elsewhere: [facility] ([place], [place]) - [facility] Coordinator: Phone: Fax: Chinik 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
--- OUTSIDE RECORDS SUMMARY | 2024-10-05 21:08 | XMS_ITS ---
Author Organization [facility] Address [address] [place] [address] Care Team Providers Care Oncology Nurse Name Role Phone Hermes Ramirez MD Primary Care Provider [phone] Transplant Episode Kidney, Liver Recipient [facility] ([place], [place]) - [facility] Organs Received: Liver, Left Kidney Transplanted on 05/09/2020 Marked as Active Follow-up on 05/09/2020 Kidney, Liver CoordinatorMisty Ash RN Phone: N/A Fax: N/A Email: N/A Elim Ira Organ Diagnosis Organ Primary Contributory Kidney Calcineurin [...] N/A Palak Garnica MD Transplant Attending Physician [phone] [email or web address] Nirav Carpio MD Transplant Surgeon [phone] N/A Snow Orozco MD Transplant Manager Financial Services [phone] [email or web address] Events Post-Transplant Pre-Transplant Admitted: 05/08/2020 Referred: 04/24/2020 Transplanted: 05/09/2020 Evaluation began: Discharged: 05/18/2020 Committee: 04/30/2020 Center waitlisted:
--- OUTSIDE RECORDS SUMMARY | 2024-10-05 21:08 | XMS_ITS | Encounter Summary ---
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
--- OUTSIDE RECORDS SUMMARY | 2024-10-05 21:08 | XMS_ITS | Continuity of Care Document ---
Author Organization [facility] Address [address] [place] [address] Phone Care Team Providers Care Lens Block Gauger Name Role Phone Santana Timmons MD Unavailable Unavailable Procedures Procedure Date Subsequent Hospital Care Initial Inpatient Consult Advance Directives Directive Yes / No Effective Date File Name No Information Encounters Encounter Description Practice Location Reason(s) For Visit Diagnoses Date Provider Providers Copied on Encounter Subsequent Hospital Care [facility], [address] [place] [address], [id number], tel:[phone] [facility] No Information 1 Shanelle Dillon. [address] [place] [address], [id number], [place]. tel:[phone] Referring Provider: Hermes Ramirez , [address] [place] [address], [address]. tel:[phone] Initial Inpatient Consult [facility], [address] [place] [address], [id number], tel:[phone] [facility] No Information Shanelle Dillon. [address] [place] [address], [id number], . tel:[phone] Referring Provider: Hermes Ramirez [address], [address]. tel:[phone] Family History Family Member Type Diagnosis Age At Onset No Information Payers Payer name Insurance type Covered republican ID Authoriza tiyoan(s) [facility] [id number] Social History Type Description Quantity Date Captured Comments Sex Female Smoking Status No Information Chief Complaint And Reason For Visit No Information History Of Present Illness Encounter Date Complaint History Of Prese nt Illness No Information Instructions Date Instruction Additional Infor mation No Information Assessments Type Assessment Date No Information
--- OUTSIDE RECORDS SUMMARY | 2024-10-05 21:08 | XMS_ITS | Encounter Summary ---
Author Organization 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 No / Unsure 07/13/2022 3:03 PM CDT documented as of this encounter Progress Notes * Hollie Eugene RN - 07/16/2022 6:43 PM CDT Patient called the photographer motion picture answering service. Per patient she is having [...] documented as of this encounter Care Teams Telephone Assembler Relationship Specialty Start Date End Date Hermes Ramirez MD [address] [place] [address] PCP - General 05/28/20 documented as of this encounter
--- OUTSIDE RECORDS SUMMARY | 2024-10-05 21:08 | XMS_ITS | Encounter Summary ---
Author Organization [facility] Address [address] [place] [address] Care Team Providers Care Content Architect Name Role Phone Ashley ZUNIGA MD, Hermes Primary Care Provid er Lyly Fiore NP Primary Care Provider Encounter Details Date Type Department Care Team (Late st Contact Info) Description 06/03/2017 Abstract [facility] CONVERSION [address] [place] [address] , Generic ConversionMD Social History Tobacco Use Types Packs/Day Years Used Date Smoking Tobacco: Never Assessed Comments Unknown Sex and Gender Information Value Date Recorded Sex Assigned at Female 04/05/2024 4:26 PM PROGRAMMER NUMERICAL CONTROL Legal Sex Female 9:15 PM PROGRAMMER NUMERICAL CONTROL Gender Identity Not on file Sexual Orientation Not on file documented as of this encounter Plan of Treatment Not on file documented as of this encounter Visit Diagnoses Not on filedocumented in this encounter Additional Health Concerns Infection Onset Date Last Indicated Resolved Time COVID-19 Rule Out 03/30/2020 03/30/2020 03/30/2020 9:29 PM PROGRAMMER NUMERICAL CONTROL COVID-19 Rule Out 03/30/2020 03/30/2020 03/31/2020 12:28 PM PROGRAMMER NUMERICAL CONTROL COVID-19 Rule Out 02/16/2024 02/16/2024 02/16/2024 9:16 PM PROGRAMMER NUMERICAL CONTROL Rhinovirus 02/16/2024 02/16/2024 02/26/2024 12:3 2 AM PROGRAMMER NUMERICAL CONTROL COVID-19 Rule Out 08/26/2024 08/26/2024 08/26/2024 11:07 PM CDT Respiratory Rule Out 08/26/2024 08/26/2024 025 11:06 PM CDT documented as of this encounter Care Teams Content Architect Relationship Specialty Start Date End Date Hermes Ramirez III, MD [address] [address] PCP - General FAMILY PRACTICE 06/20/17 04/13/24 Lyly Fiore NP [address] [place] [address] PCP - General NURSE PRACTITIONER 04/14/24 documented as of this encounter
--- OUTSIDE RECORDS SUMMARY | 2024-10-05 21:08 | XMS_ITS | Referral Summary ---
Author Organization [facility] Address [address] [place] [address] Care Team Providers Care Emergency Medicine Medical Director Name Role Phone Hermes Ramirez MD Primary [...] Dates Next Due Tetanus-Diphth Toxoids Injection 10/18/2021 Tjwcxve-Hehnzkqbvf-Hnisgbzqj Pertussis (Tdap) Injection 10/18/2021,05/10/2017,05/25/2012 hepatitis A vaccine [...] on file Legal Sex Female 1:03 PM BRIDGE REPAIRER Gender Identity Not on file Sexual [...] on file Medical Devices Implanted Type Area Acetone Button Paster Device Identifier Shelf Expiration Date Model / Serial / Lot Liver - [id number] Implanted:Qty: 1 on 05/09/2020 by Nirav Carpio MD at [facility] N/A: Abdomen ORGAN PROCUREMENT ORGANIZATION 05/10/2020 ORGAN - LIVER / [id number] / LOT NA Left Kidney - [id number] Implanted:Qty: 1 on 05/09/2020 by Nirav Carpio MD at [facility] N/A: Abdomen ORGAN PROCUREMENT ORGANIZATION 05/10/2020 ORGAN - LEFT KIDNEY / [id number] / LOT NA Stent Ureteral L12 Cm L100 Cm Od6 Fr .028 In Closed End Design One Step Insertion Radiopaque Filler Double-J Silicone Disposable - [id number] Implanted:Qty: 1 on 05/09/2020 by Nirav Carpio MD at [facility] N/A: Abdomen OLYMPUS - Hortor [employer]CMI WAGNER 02/11/2025 [id number] / / [id number] Stent Ureteral L12 Cm L100 Cm Od6 Fr .028 In Closed End Design One Step Insertion Radiopaque Filler Double-J Silicone Disposable - [id number] Implanted:Qty: 1 on 05/09/2020 by Nirav Carpio MD at [facility] N/A: Abdomen OLYMPUS - GYRUS A[employer] WAGNER 02/11/2025 [id number] / / [id number] Device Closure L70 Cm .038 In Insertion Sheath Arteriotomy Corset Fitter Guidewire J Shade Hanger Vascular Angio-Seal Evolution ([id number]) - [id number] Implanted:Qty: 1 on 07/20/2020 at [facility] [employer] WAGNER 03/19/2021 [id number] / / [id number] Procedures Procedure Name Priority Date/Time Associated Diagnosis Comments HEPATITIS C VIRUS ANTIBODY Routine 11/07/2023 5:43 AM CDT HIV RNA QUANTITATION (HIV VIRAL LOAD) Routine 06/17/2020 9:55 AM CDT 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 This does not exclude the possibility of exposure to HCV. 11/07/2023 5:43 AM CDT 11/07/2023 6:16 AM CDT us Phillip Mustafa MD LAB BLOOD ORDERABLES Final Re sult [facility] [address] [place] [address] * HIV RNA Quantitation (06/17/2020 9:55 AM CDT) Pathologist [facility] HIV-1 RNA QUANTITATION HIV RNA Quantitation [facility] HIV-1 RNA QUANTITATION Less than 40 Less than 40 Copies/m L [facility] HIV LOG RESULT Less than 1.6 R [facility] Comment: Methodology: Quantitation of HIV RNA is [...] PA-C LAB BLOOD MICRO Final Resu lt [facility] [address] [place] [address] * Pathology Gyne Cytology: (04/28/2020 12:00 AM BRIDGE REPAIRER) AP [facility] COPA TH CONVERSION PATHOLOGY RESULT Department of Pathology [facility] [address] [place] [address], [address] [place] [address] Final *Clinical Data Electronic version* This report [...] Range = NOT DETECTED] TEST PERFORMED AT: [facility], [facility] [place] [address]. Photo Lab Technician: David Kc MD. CLIA # [id number]. Attending Pathologist: Destiny Obregon MD, PhD * Electronically signed Review by Rig Builder Helper: Akil De La Cruz * Electronically signed [...] developed and the performance characteristics determined by [facility] Department of Pathology. These tests have not been cleared or approved for commercial use by the U.S. Food and Drug Administration. This test is used for clinical purposes. It should not be regarded as investigational or for research. The FDA has determined that FDA review is not required for such assays. This is for [id number]. CLINICAL INFORMATION Date of Last Menstrual Period: UNKNOWN Other Clinical Conditions: LSIL or higher, bx/pap HPV, Hx/Dx/Rx Intradepartmental Consultation Pathologist: ICD-CM(s): A; Z12.4 Z11.51 CPT(s): A; 67668, 54541 [facility] COPATH CONVERSION AP Final Diagnosis GYNE THIN PREP + HPV HIGH RISK Adequacy: Satisfactory for evaluation, but limited by no transformation zone. General Category: Negative for intraepithelial lesion or malignancy. Description: Fungal organisms morphologically consistent with Lydia. HPV mRNA E6/E7 NOT DETECTED Performed using the APTIMA HPV Assay ([employer]) This assay detects E6/E7 viral messenger RNA (mRNA) from 14 high risk HPV types (16, 18, 31, 33, 35, 39, 45, 51, 52, 56, 58, 59, 66, 68) [Reference Range = NOT DETECTED] TEST PERFORMED AT: [facility], [address] [place] [address]. Photo Lab Technician: David Kc MD. CLIA # [id number]. [facility] COPATH CONVERSION AP Notes This case was reviewed by a pathologist for QC purposes only. 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
--- OUTSIDE RECORDS SUMMARY | 2024-10-05 21:08 | XMS_ITS | Encounter Summary ---
Author Organization [facility] Address [address] [facility] [place] [address] Care Team Providers Care Label Cutter Name Role Phone Hermes Ramirez MD Primary Care Provider Reason for Visit * Reason Onset Date Comments Refill Request 06/01/2023 Encounter Details Date Type Department Care Team (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
--- OUTSIDE RECORDS SUMMARY | 2024-10-05 21:08 | XMS_ITS | Encounter Summary ---
Author Organization [facility] Address [address] [facility] [place] [address] Care Team Providers Care Battery Service Technician Name Role Phone Hermes Ramirez MD Primary Care Provider Reason for Visit * Reason Onset Date Comments Refill Request 05/06/2023 Encounter Details Date Type Department Care Team (Late st Contact Info) Description 05/06/2023 Refill [facility] [address] [address] Marion Pedroza MD [address] [place] [address] Refill Request Social History Tobacco [...] Currently or in the past 3 m [facility], have you worried your food would [...] on file Legal 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
--- OUTSIDE RECORDS SUMMARY | 2024-10-05 21:08 | XMS_ITS | Clinical Summary ---
Author Organization [facility] Address [address] [place] [address] Care Team Providers Care Rand Butting Machine Operator Name Role Phone Beatriz Lee MD Unavailable [phone] Lyly Fiore STENCIL CUTTER Primary Care Provider Taylor Kitchen RN Unavailable [...] different from the original. Lab: [facility]. . . Pharmacy: [place], [place] Patient enrolled in [employer] assistance program for [employer] until 03/2025 -[employer] [...] with baseline creatinine ~2. Previously followed at [facility], but has she has been wanting to transfer care to [place] but has not been able to schedule an appointment. She follows with [facility]. Per Liver Transplant office [...] with baseline creatinine ~2. Previously followed at [facility], but has she has been wanting to transfer care to [place] but has not been able to schedule an appointment. She follows with [facility]. Per Liver Transplant office [...] with baseline creatinine ~2. Previously followed at [facility], but has she has been wanting to transfer care to [place] but has not been able to schedule an appointment. She follows with [facility]. Per Liver Transplant office [...] with baseline creatinine ~2. Previously followed at [facility], but has she has been wanting to transfer care to [place] but has not been able to schedule an appointment. She follows with [facility]. Per Liver Transplant office [...] with baseline creatinine ~2. Previously followed at [facility], but has she has been wanting to transfer care to [place] but has not been able to schedule an appointment. She follows with [facility]. Per Liver Transplant office [...] with baseline creatinine ~2. Previously followed at [facility], but has she has been wanting to transfer care to [place] but has not been able to schedule an appointment. She follows with [facility]. Per Liver Transplant office [...] with baseline creatinine ~2. Previously followed at [facility], but has she has been wanting to transfer care to [place] but has not been able to schedule an appointment. She follows with [facility]. Per Liver Transplant office [...] with baseline creatinine ~2. Previously followed at [facility], but has she has been wanting to transfer care to [place] but has not been able to schedule an appointment. She follows with [facility]. Per Liver Transplant office [...] with baseline creatinine ~2. Previously followed at [facility], but has she has been wanting to transfer care to [place] but has not been able to schedule an appointment. She follows with [facility]. Per Liver Transplant office [...] with baseline creatinine ~2. Previously followed at [facility], but has she has been wanting to transfer care to [place] but has not been able to schedule an appointment. She follows with [facility]. Per Liver Transplant office [...] with baseline creatinine ~2. Previously followed at [facility], but has she has been wanting to transfer care to [place] but has not been able to schedule an appointment. She follows with [facility]. Per Liver Transplant office [...] we would not be able to prescribe half-way opioids on discharge. Discussed importance of outpatient [...] we would not be able to prescribe half-way opioids on discharge. Discussed importance of outpatient [...] we would not be able to prescribe petroleum terminal plant operator opioids on discharge. Discussed importance of outpatient [...] we would not be able to prescribe half-way opioids on discharge. Discussed importance of outpatient [...] we would not be able to prescribe half-way opioids on discharge. Discussed importance of outpatient [...] we would not be able to prescribe petroleum terminal plant operator opioids on discharge. Discussed importance of outpatient [...] we would not be able to prescribe half-way opioids on discharge. Discussed importance of outpatient [...] we would not be able to prescribe half-way opioids on discharge. Discussed importance of outpatient [...] we would not be able to prescribe petroleum terminal plant operator opioids on discharge. Discussed importance of outpatient [...] we would not be able to prescribe petroleum terminal plant operator opioids on discharge. Discussed importance of outpatient [...] we would not be able to prescribe half-way opioids on discharge. Discussed importance of outpatient [...] we would not be able to prescribe half-way opioids on discharge. Discussed importance of outpatient [...] with baseline creatinine ~2. Previously followed at [facility], but has she has been wanting to transfer care to [place] but has not been able to schedule an appointment. She follows with [facility]. Per Liver Transplant office [...] with baseline creatinine ~2. Previously followed at [facility], but has she has been wanting to transfer care to [place] but has not been able to schedule an appointment. She follows with [facility]. Per Liver Transplant office [...] with baseline creatinine ~2. Previously followed at [facility], but has she has been wanting to transfer care to [place] but has not been able to schedule an appointment. She follows with [facility]. Per Liver Transplant office [...] with baseline creatinine ~2. Previously followed at [facility], but has she has been wanting to transfer care to [place] but has not been able to schedule an appointment. She follows with [facility]. Per Liver Transplant office [...] with baseline creatinine ~2. Previously followed at [facility], but has she has been wanting to transfer care to [place] but has not been able to schedule an appointment. She follows with [facility]. Per Liver Transplant office [...] with baseline creatinine ~2. Previously followed at [facility], but has she has been wanting to transfer care to [place] but has not been able to schedule an appointment. She follows with [facility]. Per Liver Transplant office [...] Transplant starting process of assuming care from [facility], but in short term they recommend patient follow up with renal transplant at [facility]. - She is NOW actively enrolled in the [employer] free patient assistance program through mar 2025 - script needs to be sent to [facility] (sent). Hyperbilirubinemia 04/16/2020 Assessment & Plan (04/16/2020 5:01 AM PIT CRANE OPERATOR): - T. Bili of 7 (last was [...] 07/25/2019 Assessment & Plan (04/16/2020 2:25 AM PIT CRANE OPERATOR): See hyperbili problem. 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 We would need to call [facility] to identify a contracted center ([phone]). She lives close enough to [place] that would be the most likely city she could travel to. She also noted that she could always remarry an ex- as he has insurance that may be covered at [facility]. Appreciate note from nephrology and agree with restarting oral diuretics. Can continue tacrolimus at the current dose. MRI/MRCP completed and will review with radiology to identify if any role for PTC. Assessment & Plan (04/16/2020 2:26 AM PIT CRANE OPERATOR): S/p liver tranplant in 1992 for biliary [...] meds Assessment & Plan (04/16/2020 5:01 AM PIT CRANE OPERATOR): Unclear if progression of CKD vs acute [...] Cr of 1.8. She follows with local recycler Dr. Mathew and thinks her baseline is 2.1. She was at 2.3 at OSH. She took some diuretics at home and was given lasix at OSH ED. --UA, urine lytes --get records from her recycler to find out baseline --random tacro level --monitor Is & Os; avoid nephrotoxins Encounters Date Type Department Care Team Description 09/26/2024 Telephone [facility] [place] at the [address] [facility] [address] [place] [address] Igor Graham MD Post-Op Call 09/25/2024 8:48 AM CDT - 09/25/2024 11:59 PM CDT Hospital Encounter [facility] [place] at the [address] [facility] [address] [place] [address] Igor Graham MD Lumbar disc disease with radiculopathy (Primary Dx); Lumbar spondylosis Discharge Disposition: Discharge to home or self care 09/19/2024 Telephone [facility] at the [address] [facility] [address] [place] [address] Igor Graham MD PMC Preprocedure 09/09/2024 SHOP/CHAP Initial Eligibility Review [facility] OP CASE MANAGEMENT [address] [place] [address] Shireen Griffin RN 08/31/2024 11:48 PM CDT - 09/06/2024 4:45 PM CDT Hospital Encounter [address] [address] Elisha Avila MD Freilich, MD Vicente Aguirre, Britta Alarcon MD Abdominal pain (Primary Dx); Liver transplant failure and rejection (HCC); Rhinovirus infection Discharge Disposition: Discharge to home or self care 08/27/2024 Telephone [facility] at the [address] [facility] [address] [place] [address] Igor Graham MD Pre Procedure 08/15/2024 10:30 AM CDT Clinical Support [address] [facility] 1st [place] [address] Brielle Syed, PhD 08/15/2024 Results Follow-Up [facility] Transplant Liver [address] [facility] [address] Mailstop [phone] [place] [address] Taylor Kitchen, assurance services manager health care pathology 08/14/2024 12:21 PM CDT - 08/14/2024 11:59 PM CDT Hospital Encounter [facility] [address] [facility] [address] [place] [address] Igor Graham MD Lumbar spondylosis (Primary Dx); Lumbar disc disease with radiculopathy Discharge Disposition: Discharge to home or self care 08/02/2024 Orders Only [facility] [address] [place] [address] Beatriz Lee MD History of liver transplant (HCC); History of kidney transplant 08/01/2024 Telephone [facility] Transplant Liver [address] [place], [place] [address]op [phone] [place] [address] Misty Vail RN 07/29/2024 Telephone [facility] Transplant Liver [address] [place] [address] 340 Mailstop [phone] [place] [address] Lorena Turner 07/26/2024 2:55 PM CDT - 07/26/2024 2:56 PM CDT Emergency [facility] Emergency Department [address] [place] [address] Discharge Disposition: Left without being seen 07/24/2024 10:00 AM CDT Office Visit [facility] Orthopaedic Surgery [address] [facility] 6th [place] [address] [place] [id number] Jessee Morton MD Lumbar spine pain (Primary Dx); Adolescent idiopathic scoliosis of thoracic region; Chronic bilateral low back pain without sciatica 07/24/2024 9:45 AM CDT - 07/24/2024 11:59 PM CDT Hospital Encounter [facility] [address] [place] [address] Jessee Morton MD Lumbar spine pain; Adolescent idiopathic scoliosis of thoracic region Discharge Disposition: Discharge to home or self care 07/24/2024 Telephone [facility] Transplant Liver [address] [facility] [address] Mailstop [phone] [place] [address] Lorena Turner 07/22/2024 Telephone [facility] Transplant Liver [address] [facility] [address] Mailstop [phone] [place] [address] Dafne Dukes RN 07/19/2024 Telephone [facility] Transplant Liver [address] [facility] [address] Mailstop [phone] [place] [address] Karmen Garsia RN After Hours; Abdominal Pain 07/17/2024 Telephone [facility] Transplant Liver [address] [facility] [address] Mailstop [phone] [place] [address] Lroena Turner 07/12/2024 5:48 PM CDT - 07/12/2024 11:59 PM CDT Hospital Encounter [facility] [address] [place] [address] Discharge Disposition: Discharge to home or self care 07/12/2024 5:46 PM CDT - 07/12/2024 11:59 PM CDT Hospital Encounter [facility] [address] [place] [address] Discharge Disposition: Discharge to home or self care 07/12/2024 5:44 PM CDT - 07/12/2024 11:59 PM CDT Hospital Encounter [facility] [address] [place] [address] Discharge Disposition: Discharge to home or self care 07/12/2024 5:43 PM CDT - 07/12/2024 11:59 PM CDT Hospital Encounter [facility] [address] [place] [address] Discharge Disposition: Discharge to home or self care 07/12/2024 Telephone [facility] Nephrology [address] [facility] 5th [place] [address] [place] [address] Wilson Swift MD 07/11/2024 Telephone [facility] Transplant Liver [address] [facility] [address] Mailstop [phone] [place] [address] Dafne Dukes RN 07/11/2024 Telephone [facility] Transplant Liver [address] [facility] [address] Mailstop [phone] [place] [address] Yulisa Welch 07/10/2024 Telephone [facility] Transplant Liver [address] [facility] [address] Mailstop [phone] [place] [address] Liyah Kamara 07/09/2024 8:48 AM CDT - 07/09/2024 11:59 PM CDT Hospital Encounter [facility] [address] [place] [address] Discharge Disposition: Discharge to home or self care 07/09/2024 8:46 AM CDT - 07/09/2024 11:59 PM CDT Hospital Encounter [facility] [address] [place] [address] Discharge Disposition: Discharge to home or self care 07/09/2024 8:44 AM CDT - 07/09/2024 11:59 PM CDT Hospital Encounter [facility] [address] [place] [address] Discharge Disposition: Discharge to home or self care 07/09/2024 Telephone [facility] Transplant Liver [address] [facility] [address] Mailstop [phone] [place] [address] Dafne Dukes RN 07/09/2024 Telephone [facility] Transplant Liver [address] [facility] [address] Mailstop [phone] [place] [address] Yulisa Welch from Last 3 Months Surgical History Surgery Date Site/Laterality Comments [place] COLONOSCOPY FLX DX W/ROMAIN J SPEC WHEN [...] = 0.6 oz pur e alcohol) rare [facility] Utilities Answer Date Recorded In the past 12 months has [employer], gas, oil, or water [employer] threatened to shut off services in your [...] often do you attend chur ch or jain services? Never 09/03/2024 Do you belong to any clubs o r organizations such as worship groups, unions, fraternal or athletic groups, or [...] any time in the past 12 m [facility], were you homeless or living in a jail (including now)? No 09/03/2024 Personal Safety Answer Date Recorded Have you ever been in or are you currently in a harmful physical or emotional relationship or is someone making you feel afraid or unsafe? Denies 09/02/2024 Comments No Sex and Gender Information Value Date Recorded Sex Assigned at Not on file Legal Sex Female 10:10 PM PIT CRANE OPERATOR Gender Identity Not on file [...] CDT HEPATITIS PANEL, ACUTE Routine 6:35 AM PIT CRANE OPERATOR from Last 3 Months or Most Recently Relevant to Health Maintenance Results * Imaging Lumbar/Sacral Facet Medial Branch Block Bilateral (44506) (09/25/2024 9:47 AM CDT) Narrative RAD_PACS_[facility] - [...] ORDERABLES Aniya l Result Performing Organization Address City/[facility] Co de Phone Number [facility] [place] [place] [address] * Tacrolimus level trough (09/06/2024 9:48 AM CDT) [facility] Tacrolimus trough 6.4 ng/mL Comment: Interpretive Data Testing performed by liquid chromatography-tandem mass spectrometry. Therapeutic concentrations vary depending on type of transplanted organ and time elapsed since transplant. Typical trough concentrations range from 5-15 ng/mL. This test was developed and its performance characteristics determined by the [facility] consistent with CLIA requirements. This test has not been cleared or approved by the [place] Food and Drug administration. Current interpretive data last reviewed 2019. Blood 09/06/2024 9:48 AM CDT 09/06/2024 10:15 AM CDT us Lily Rico MD LAB BLOOD ORDERABLES Final Result Performing Organization Address [facility]/ZIP Co de Phone Number [facility] [place] [address] * (ABNORMAL) Comprehensive metabolic panel (09/06/2024 9:48 AM CDT) Sodium 139 135 - 145 mmol/L Potassium, pl 4.1 3.3 - 4.9 mmol/L [facility] Comment:Hemolyzed; Potassium value may be falsely elevated by as much as 0.3-0.5 mmol/L. Suggest redraw and reanalysis. Chloride 102 97 - 110 mmol/L [facility] CO2 26 22 - 32 mmol/L [facility] Anion gap 11 2 - 15 mmol/L [facility] BUN 24 6 - 25 mg/dL [facility] Creatinine 2.04(H) 0.60 - 1.10 mg/dL [facility] Glucose 167 70 - 199 mg/dL [facility] Comment: Interpretive Data Fasting glucose [...] Calcium 8.8 8.5 - 10.3 mg/dL [facility] Bilirubin, total 0.6 0.1 - 1.2 mg/dL [facility] Protein, pl 6.1(L) 6.5 - 8.5 g/dL [facility] Albumin 3.5 3.5 - 5.0 g/dL [facility] Alk phos 241(H) 40 - 130 Units/L [facility] ALT 17 7 - 45 Units/L [facility] AST 41 10 - 45 Units/L [facility] Comment:Hemolyzed; result ma y be falsely elevated Blood 09/06/2024 9:48 AM CDT 09/06/2024 10:15 AM CDT Britta Zhang MD LAB BLOOD ORDERABLES Aniya l Result Performing Organization Address [facility] Co de Phone Number [facility] Department [place] [address] * (ABNORMAL) eGFR (09/05/2024 10:47 AM CDT) [...] ORDERABLES Aniya l Result Performing Organization Address [facility] Co de Phone Number [facility] Department [place] [address] * Differential, auto (09/05/2024 10:47 AM CDT) Neutrophil abs 3.84 1.50 - 6.50 K/cumm Imm gran abs 0.03 0.00 - 0.10 K/cumm [facility] Lymphocyte abs 1.33 0.80 - 3.30 K/cumm [facility] Monocyte abs 0.30 0.20 - 0.80 K/cumm [facility] Eosinophil abs 0.15 0.00 - 0.50 K/cumm [facility] Basophil abs 0.01 0.00 - 0.10 K/cumm [facility] Neutrophil pct 67.8 % [facility] Comment: Interpretive Data Percent cell count reference ranges are not reported, since discordance with absolute values may lead to misinterpretation of CBC data. Current Interpretive Data was last revised on 2017. Imm gran pct 0.5 % [facility] Comment: Interpretive Data Percent cell count reference ranges are not reported, since discordance with absolute values may lead to misinterpretation of CBC data. Current Interpretive Data was last revised on 2017. Lymphocyte pct 23.5 % [facility] Comment: Interpretive Data Percent cell count reference ranges are not reported, since discordance with absolute values may lead to misinterpretation of CBC data. Current Interpretive Data was last revised on 2017. Monocyte pct 5.3 % [facility] Comment: Interpretive Data Percent cell count reference ranges are not reported, since discordance with absolute values may lead to misinterpretation of CBC data. Current Interpretive Data was last revised on 2017. Eosinophil pct 2.7 % [facility] Comment: Interpretive Data Percent cell count reference ranges are not reported, since discordance with absolute values may lead to misinterpretation of CBC data. Current Interpretive Data was last revised on 2017. Basophil pct 0.2 % [facility] Comment: Interpretive Data Percent cell count reference ranges are not reported, since discordance with absolute values may lead to misinterpretation of CBC data. Current Interpretive Data was last revised on 2017. Blood 09/05/2024 10:4 7 AM CDT 09/05/2024 11:03 AM CDT us Britta Zhang MD LAB BLOOD ORDERABLES Aniya maguire Result [facility] [place] [address] * Tacrolimus level trough (09/05/2024 10:47 AM CDT) Tacrolimus trough 6.2 ng/mL Comment: Interpretive Data Testing performed by liquid chromatography-tandem mass spectrometry. Therapeutic concentrations vary depending on type of transplanted organ and time elapsed since transplant. Typical trough concentrations range from 5-15 ng/mL. This test was developed and its performance characteristics determined by the [facility] consistent with CLIA requirements. This test has not been cleared or approved by the [place] Food and Drug administration. Current interpretive data last reviewed 2019. Blood 09/05/2024 10:4 7 AM CDT 09/05/2024 11:04 AM CDT Narrative [facility] - 09/05/2024 1:14 PM CDT Draw exactly 12 HOURS after last dose of tacrolimus was given and just BEFORE giving next dose Britta Zhang MD LAB BLOOD ORDERABLES Aniya maguire Result [facility] [place] [address] * (ABNORMAL) CBC with auto differential (09/05/2024 10:47 AM CDT) [facility] WBC 5.66 3.80 - 9.90 K/cumm Hgb 11.1(L) 11.9 - 15.5 g/dL [facility] Hct 31.6(L) 35.6 - 45.5 % [facility] Plt 115(L) 150 - 400 K/cumm [facility] MPV 11.4 9.1 - 12.3 fL [facility] RBC 2.81(L) 3.90 - 5.20 M/cumm [facility] MCV 112.5(H) 81.3 - 96.4 fL [facility] MCH 39.5(H) 27.1 - 33.3 pg [facility] MCHC 35.1 32.3 - 35.7 g/dL [facility] RDW CV 14.2 11.1 - 14.9 % [facility] RDW SD 59.0(H) 35.7 - 48.1 fL [facility] NRBC abs 0.00 0.00 - 0.01 K/cumm [facility] Blood 09/05/2024 10:4 7 AM CDT 09/05/2024 11:03 AM CDT Britta Zhang MD LAB BLOOD ORDERABLES Aniya maguire Result [facility] [place] [address] * (ABNORMAL) Comprehensive metabolic panel (09/05/2024 10:47 AM CDT) Sodium 143 135 - 145 mmol/L Potassium, pl 4.2 3.3 - 4.9 mmol/L [facility] Chloride 102 97 - 110 mmol/L [facility] CO2 28 22 - 32 mmol/L [facility] Anion gap 13 2 - 15 mmol/L [facility] BUN 28(H) 6 - 25 mg/dL [facility] Creatinine 2.49(H) 0.60 - 1.10 mg/dL [facility] Glucose 127 70 - 199 mg/dL [facility] Comment: Interpretive Data Fasting glucose [...] 2022. Calcium 9.0 8.5 - 10.3 mg/dL [facility] Bilirubin, total 0.7 0.1 - 1.2 mg/dL [facility] Protein, pl 6.4(L) 6.5 - 8.5 g/dL [facility] Albumin 3.7 3.5 - 5.0 g/dL [facility] Alk phos 257(H) 40 - 130 Units/L [facility] ALT 18 7 - 45 Units/L [facility] AST 27 10 - 45 Units/L [facility] Blood 09/05/2024 10:4 7 AM CDT 09/05/2024 11:03 AM CDT Britta Zhang MD LAB BLOOD ORDERABLES Aniya l Result Performing Organization Address [facility]/ZIP Co de Phone Number [facility] Department [place] [address] * (ABNORMAL) eGFR (09/04/2024 5:03 AM CDT) [...] MD LAB BLOOD ORDERABLES Aniya l Result [facility] [place] [place] [address] * Differential, auto (09/04/2024 5:03 AM CDT) Neutrophil abs 2.68 1.50 - 6.50 K/cumm Imm gran abs 0.01 0.00 - 0.10 K/cumm [facility] Lymphocyte abs 1.03 0.80 - 3.30 K/cumm [facility] Monocyte abs 0.23 0.20 - 0.80 K/cumm [facility] Eosinophil abs 0.09 0.00 - 0.50 K/cumm [facility] Basophil abs 0.00 0.00 - 0.10 K/cumm [facility] Neutrophil pct 66.4 % [facility] Comment: Interpretive Data Percent cell count reference ranges are not reported, since discordance with absolute values may lead to misinterpretation of CBC data. Current Interpretive Data was last revised on 2017. Imm gran pct 0.2 % [facility] Comment: Interpretive Data Percent cell count reference ranges are not reported, since discordance with absolute values may lead to misinterpretation of CBC data. Current Interpretive Data was last revised on 2017. Lymphocyte pct 25.5 % [facility] Comment: Interpretive Data Percent cell count reference ranges are not reported, since discordance with absolute values may lead to misinterpretation of CBC data. Current Interpretive Data was last revised on 2017. Monocyte pct 5.7 % [facility] Comment: Interpretive Data Percent cell count reference ranges are not reported, since discordance with absolute values may lead to misinterpretation of CBC data. Current Interpretive Data was last revised on 2017. Eosinophil pct 2.2 % [facility] Comment: Interpretive Data Percent cell count reference ranges are not reported, since discordance with absolute values may lead to misinterpretation of CBC data. Current Interpretive Data was last revised on 2017. Basophil pct 0.0 % [facility] Comment: Interpretive Data Percent cell count reference ranges are not reported, since discordance with absolute values may lead to misinterpretation of CBC data. Current Interpretive Data was last revised on 2017. Blood 09/04/2024 5:03 AM CDT 09/04/2024 5:10 AM CDT us Britta Zhang MD LAB BLOOD ORDERABLES Aniya l Result [facility] Department [place] [address] * Tacrolimus level trough (09/04/2024 5:03 AM CDT) [facility] Tacrolimus trough 10.9 ng/mL Comment: Interpretive Data Testing performed by liquid chromatography-tandem mass spectrometry. Therapeutic concentrations vary depending on type of transplanted organ and time elapsed since transplant. Typical trough concentrations range from 5-15 ng/mL. This test was developed and its performance characteristics determined by the [facility] consistent with CLIA requirements. This test has not been cleared or approved by the US Food and Drug administration. Current interpretive data last reviewed 2019. Blood 09/04/2024 5:03 AM CDT 09/04/2024 5:10 AM CDT [facility] - 09/04/2024 7:32 AM CDT Draw exactly 12 HOURS after last dose of tacrolimus was given and just BEFORE giving next dose Britta Zhang MD LAB BLOOD ORDERABLES Aniya maguire Result [facility] Department [place] [address] * (ABNORMAL) CBC with auto differential (09/04/2024 5:03 AM CDT) [facility] WBC 4.04 3.80 - 9.90 K/cumm Hgb 11.8(L) 11.9 - 15.5 g/dL [facility] Hct 32.9(L) 35.6 - 45.5 % [facility] Plt 66(L) 150 - 400 K/cumm [facility] MPV 12.0 9.1 - 12.3 fL [facility] RBC 2.96(L) 3.90 - 5.20 M/cumm [facility] MCV 111.1(H) 81.3 - 96.4 fL [facility] MCH 39.9(H) 27.1 - 33.3 pg [facility] MCHC 35.9(H) 32.3 - 35.7 g/dL [facility] RDW CV 14.0 11.1 - 14.9 % [facility] RDW SD 56.5(H) 35.7 - 48.1 fL [facility] NRBC abs 0.00 0.00 - 0.01 K/cumm [facility] Blood 09/04/2024 5:03 AM CDT 09/04/2024 5:10 AM CDT us Britta Zhang MD LAB BLOOD ORDERABLES Aniya maguire Result [facility] Department [place] [address] * (ABNORMAL) Comprehensive metabolic panel (09/04/2024 5:03 AM CDT) Sodium 137 135 - 145 mmol/L Potassium, pl 4.2 3.3 - 4.9 mmol/L [facility] Chloride 100 97 - 110 mmol/L [facility] CO2 26 22 - 32 mmol/L [facility] Anion gap 11 2 - 15 mmol/L [facility] BUN 30(H) 6 - 25 mg/dL [facility] Creatinine 2.87(H) 0.60 - 1.10 mg/dL [facility] Glucose 153 70 - 199 mg/dL [facility] Comment: Interpretive Data Fasting glucose [...] 2022. Calcium 8.5 8.5 - 10.3 mg/dL [facility] Bilirubin, total 0.8 0.1 - 1.2 mg/dL [facility] Protein, pl 6.6 6.5 - 8.5 g/dL [facility] Albumin 3.5 3.5 - 5.0 g/dL [facility] Alk phos 240(H) 40 - 130 Units/L [facility] ALT 12 7 - 45 Units/L [facility] AST 31 10 - 45 Units/L [facility] Blood 09/04/2024 5:03 AM CDT 09/04/2024 5:10 AM CDT Britta Zhang MD LAB BLOOD ORDERABLES Aniya l Result Performing Organization Address City/[facility]/ZIP Co de Phone Number [facility] Department [place] [address] * (ABNORMAL) eGFR (09/03/2024 5:21 AM CDT) [...] MD LAB BLOOD ORDERABLES Aniya l Result [facility] [place] [address] * Differential, auto (09/03/2024 5:21 AM CDT) Neutrophil abs 3.79 1.50 - 6.50 K/cumm Imm gran abs 0.03 0.00 - 0.10 K/cumm [facility] Lymphocyte abs 0.84 0.80 - 3.30 K/cumm [facility] Monocyte abs 0.25 0.20 - 0.80 K/cumm [facility] Eosinophil abs 0.05 0.00 - 0.50 K/cumm [facility] Basophil abs 0.00 0.00 - 0.10 K/cumm [facility] Neutrophil pct 76.5 % [facility] Comment: Interpretive Data Percent cell count reference ranges are not reported, since discordance with absolute values may lead to misinterpretation of CBC data. Current Interpretive Data was last revised on 2017. Imm gran pct 0.6 % [facility] Comment: Interpretive Data Percent cell count reference ranges are not reported, since discordance with absolute values may lead to misinterpretation of CBC data. Current Interpretive Data was last revised on 2017. Lymphocyte pct 16.9 % [facility] Comment: Interpretive Data Percent cell count reference ranges are not reported, since discordance with absolute values may lead to misinterpretation of CBC data. Current Interpretive Data was last revised on 2017. Monocyte pct 5.0 % [facility] Comment: Interpretive Data Percent cell count reference ranges are not reported, since discordance with absolute values may lead to misinterpretation of CBC data. Current Interpretive Data was last revised on 2017. Eosinophil pct 1.0 % [facility] Comment: Interpretive Data Percent cell count reference ranges are not reported, since discordance with absolute values may lead to misinterpretation of CBC data. Current Interpretive Data was last revised on 2017. Basophil pct 0.0 % [facility] Comment: Interpretive Data Percent cell count reference ranges are not reported, since discordance with absolute values may lead to misinterpretation of CBC data. Current Interpretive Data was last revised on 2017. Blood 09/03/2024 5:21 AM CDT 09/03/2024 5:31 AM CDT Britta Zhang MD LAB BLOOD ORDERABLES Aniya l Result Performing Organization Address [facility] Co de Phone Number [facility] [place] [address] * Tacrolimus level trough (09/03/2024 5:21 AM CDT) [facility] Tacrolimus trough 17.8 ng/mL Comment: Interpretive Data Testing performed by liquid chromatography-tandem mass spectrometry. Therapeutic concentrations vary depending on type of transplanted organ and time elapsed since transplant. Typical trough concentrations range from 5-15 ng/mL. This test was developed and its performance characteristics determined by the [facility] consistent with CLIA requirements. This test has not been cleared or approved by the US Food and Drug administration. Current interpretive data last reviewed 2019. Blood 09/03/2024 5:21 AM CDT 09/03/2024 5:31 AM CDT Narrative [facility] - 09/03/2024 9:19 AM CDT Draw exactly 12 HOURS after last dose of tacrolimus was given and just BEFORE giving next dose Britta Zhang MD LAB BLOOD ORDERABLES Aniya l Result Performing Organization Address [facility] de Phone Number [facility] Department [place] [address] * (ABNORMAL) CBC with auto differential (09/03/2024 5:21 AM CDT) [facility] WBC 4.96 3.80 - 9.90 K/cumm Hgb 11.3(L) 11.9 - 15.5 g/dL [facility] Hct 30.7(L) 35.6 - 45.5 % [facility] Plt 83(L) 150 - 400 K/cumm [facility] MPV 11.0 9.1 - 12.3 fL [facility] RBC 2.84(L) 3.90 - 5.20 M/cumm [facility] MCV 108.1(H) 81.3 - 96.4 fL [facility] MCH 39.8(H) 27.1 - 33.3 pg [facility] MCHC 36.8(H) 32.3 - 35.7 g/dL [facility] RDW CV 13.9 11.1 - 14.9 % [facility] RDW SD 54.4(H) 35.7 - 48.1 fL [facility] NRBC abs 0.00 0.00 - 0.01 K/cumm [facility] Blood 09/03/2024 5:21 AM CDT 09/03/2024 5:31 AM CDT Britta Zhang MD LAB BLOOD ORDERABLES Aniya maguire Result [facility] Department [place] [address] * (ABNORMAL) Comprehensive metabolic panel (09/03/2024 5:21 AM CDT) Sodium 138 135 - 145 mmol/L Potassium, pl 4.7 3.3 - 4.9 mmol/L [facility] Chloride 101 97 - 110 mmol/L [facility] CO2 29 22 - 32 mmol/L [facility] Anion gap 8 2 - 15 mmol/L [facility] BUN 29(H) 6 - 25 mg/dL [facility] Creatinine 2.92(H) 0.60 - 1.10 mg/dL [facility] Glucose 113 70 - 199 mg/dL [facility] Comment: Interpretive Data Fasting glucose [...] 2022. Calcium 9.2 8.5 - 10.3 mg/dL [facility] Bilirubin, total 1.1 0.1 - 1.2 mg/dL [facility] Protein, pl 6.2(L) 6.5 - 8.5 g/dL [facility] Albumin 3.4(L) 3.5 - 5.0 g/dL [facility] Alk phos 233(H) 40 - 130 Units/L [facility] ALT 13 7 - 45 Units/L [facility] AST 22 10 - 45 Units/L [facility] Blood 09/03/2024 5:21 AM CDT 09/03/2024 5:31 AM CDT Britta Zhang MD LAB BLOOD ORDERABLES Aniya l Result Performing Organization Address [facility] de Phone Number [facility] [place] [place] [address] * BK virus PCR quantitative Blood (09/02/2024 12:21 PM CDT) [facility] BKV DNA result, pl Not Detected [facility] Comment: The quantifiable range of this assay is 21.5 IU/mL to 100,000,000 IU/mL (1.33 log IU/mL to 8.00 log IU/mL). Testing was performed by the JOHNNY 6800 BKV Quantatitive Test version 2.0 ([employer] Testing performed at [facility] Current Interpretive Data was last revised on 2021. Blood 09/02/2024 12:2 1 PM CDT 09/02/2024 12:52 PM CDT Britta Zhang MD LAB MICROBIOLOGY - GENERA L ORDERABLES Final Result Performing Organization Address [facility] Co de Phone Number [facility] [place] [place] [address] [facility] * HLA Donor Specific Antibody Report (09/02/2024 12:21 PM CDT) Result [facility] Britta Zhang MD LAB BLOOD ORDERABLES Aniya l Result * HLA Antibody Screen - DSA (Class I and Class II) (09/02/2024 12:21 PM CDT) Blood 09/02/2024 12:2 1 PM CDT 09/03/2024 11:27 AM CDT Narrative [facility] - 09/03/2024 11:27 AM CDT Result [facility] Britta Zhang MD LAB BLOOD ORDERABLES Aniya l Result [facility] * Collection Task for HLA Antibody Screen (09/02/2024 12:21 PM CDT) Pathologist [facility] HLA Antibody Screen By Single Antigen Received Blood 09/02/2024 12:2 1 PM CDT 09/03/2024 10:59 AM CDT Result [facility] Britta Zhang MD LAB BLOOD ORDERABLES Aniya l Result ALEK [facility] [place] [address] * Cytomegalovirus (CMV) DNA PCR, quantitative Blood (09/02/2024 12:21 PM CDT) Pathologist [facility] CMV DNA Not Detected [facility] Comment: Interpretive Data: The quantifiable range of this assay is 34 IUnits/mL to 10,000,000 IUnits/mL (1.53 log IUnits/mL to 7.0 log IUnits/mL). Testing was performed by the JOHNNY 6800 CMV Test ([employer] Testing performed at [facility]. Current interpretive data was last revised on 2020. Blood 09/02/2024 12:2 1 PM CDT 09/02/2024 12:52 PM CDT Britta Zhang MD LAB MICROBIOLOGY - GENERA L ORDERABLES Final Result Performing Organization Address City/[facility]/ZIP Co de Phone Number [facility] [place] [address] [facility] * (ABNORMAL) eGFR (09/02/2024 12:21 [...] BLOOD ORDERABLES Aniya l Result ALEK [facility] [place] [address] * Blood culture Blood (09/02/2024 12:21 PM CDT) Report Final Report: No growth Blood 09/02/2024 12:2 1 PM CDT 09/02/2024 1:40 PM CDT Narrative ALEK [facility] - 09/06/2024 4:00 PM CDT From a [...] performance characteristics have been verified by the [facility]. For questions about this culture, contact the Microbiology Laboratory at [phone]. Interpretive data was last revised on 24. us Britta Zhang MD LAB MICROBIOLOGY - GENERA L ORDERABLES Final Result [facility] [place] [address] * Blood culture Blood (09/02/2024 12:21 PM CDT) Report Final Report: No growth Blood 09/02/2024 12:2 1 PM CDT 09/02/2024 1:40 PM CDT Narrative ALEK [facility] - 09/06/2024 4:00 PM CDT Collection->Peripheral 1. [...] performance characteristics have been verified by the [facility]. For questions about this culture, contact the Microbiology Laboratory at [phone]. Interpretive data was last revised on 24. us Britta Zhang MD LAB MICROBIOLOGY - GENERA L ORDERABLES Final Result [facility] [place] [address] * (ABNORMAL) Renal function panel (09/02/2024 12:21 PM CDT) Sodium 137 135 - 145 mmol/L Potassium, pl 3.9 3.3 - 4.9 mmol/L [facility] Chloride 97 97 - 110 mmol/L [facility] CO2 31 22 - 32 mmol/L [facility] Anion gap 9 2 - 15 mmol/L [facility] BUN 28(H) 6 - 25 mg/dL [facility] Creatinine 2.89(H) 0.60 - 1.10 mg/dL [facility] Glucose 162 70 - 199 mg/dL [facility] Comment: Interpretive Data Fasting glucose [...] 2022. Calcium 9.7 8.5 - 10.3 mg/dL [facility] Phosphorus, pl 4.1 2.3 - 4.5 mg/dL [facility] Albumin 3.5 3.5 - 5.0 g/dL [facility] Blood 09/02/2024 12:2 1 PM CDT 09/02/2024 12:42 PM CDT us Britta Zhang MD LAB BLOOD ORDERABLES Aniya l Result Performing Organization Address City/[facility]/ZIP Co de Phone Number [facility] [place] [address] * (ABNORMAL) eGFR (09/02/2024 5:16 AM CDT) [...] Valiente MD LAB BLOOD ORDERABLES Final Result [facility] [place] [address] * Differential, auto (09/02/2024 5:16 AM CDT) Neutrophil abs 3.97 1.50 - 6.50 K/cumm Imm gran abs 0.02 0.00 - 0.10 K/cumm [facility] Lymphocyte abs 1.10 0.80 - 3.30 K/cumm [facility] Monocyte abs 0.24 0.20 - 0.80 K/cumm [facility] Eosinophil abs 0.11 0.00 - 0.50 K/cumm [facility] Basophil abs 0.01 0.00 - 0.10 K/cumm [facility] Neutrophil pct 72.8 % [facility] Comment: Interpretive Data Percent cell count reference ranges are not reported, since discordance with absolute values may lead to misinterpretation of CBC data. Current Interpretive Data was last revised on 2017. Imm gran pct 0.4 % [facility] Comment: Interpretive Data Percent cell count reference ranges are not reported, since discordance with absolute values may lead to misinterpretation of CBC data. Current Interpretive Data was last revised on 2017. Lymphocyte pct 20.2 % [facility] Comment: Interpretive Data Percent cell count reference ranges are not reported, since discordance with absolute values may lead to misinterpretation of CBC data. Current Interpretive Data was last revised on 2017. Monocyte pct 4.4 % [facility] Comment: Interpretive Data Percent cell count reference ranges are not reported, since discordance with absolute values may lead to misinterpretation of CBC data. Current Interpretive Data was last revised on 2017. Eosinophil pct 2.0 % [facility] Comment: Interpretive Data Percent cell count reference ranges are not reported, since discordance with absolute values may lead to misinterpretation of CBC data. Current Interpretive Data was last revised on 2017. Basophil pct 0.2 % [facility] Comment: Interpretive Data Percent cell count reference ranges are not reported, since discordance with absolute values may lead to misinterpretation of CBC data. Current Interpretive Data was last revised on 2017. Blood 09/02/2024 5:16 AM CDT 09/02/2024 5:32 AM CDT us Bailee Valiente MD LAB BLOOD ORDERABLES Final Result Performing Organization Address [facility] Co de Phone Number [facility] Department [place] [address] * Tacrolimus level trough (09/02/2024 5:16 AM CDT) [facility] Tacrolimus trough 17.0 ng/mL Comment: Interpretive Data Testing performed by liquid chromatography-tandem mass spectrometry. Therapeutic concentrations vary depending on type of transplanted organ and time elapsed since transplant. Typical trough concentrations range from 5-15 ng/mL. This test was developed and its performance characteristics determined by the [facility] consistent with CLIA requirements. This test has not been cleared or approved by the [place] Food and Drug administration. Current interpretive data last reviewed 2019. Blood 09/02/2024 5:16 AM CDT 09/02/2024 5:32 AM CDT us Britta Zhang MD LAB BLOOD ORDERABLES Aniya l Result Performing Organization Address City/[facility] Co de Phone Number [facility] [place] [address] * (ABNORMAL) CBC with auto differential (09/02/2024 5:16 AM CDT) [facility] WBC 5.45 3.80 - 9.90 K/cumm Hgb 11.7(L) 11.9 - 15.5 g/dL [facility] Hct 32.3(L) 35.6 - 45.5 % [facility] Plt 98(L) 150 - 400 K/cumm [facility] MPV 11.4 9.1 - 12.3 fL [facility] RBC 2.95(L) 3.90 - 5.20 M/cumm [facility] MCV 109.5(H) 81.3 - 96.4 fL [facility] MCH 39.7(H) 27.1 - 33.3 pg [facility] MCHC 36.2(H) 32.3 - 35.7 g/dL [facility] RDW CV 13.9 11.1 - 14.9 % [facility] RDW SD 56.6(H) 35.7 - 48.1 fL [facility] NRBC abs 0.00 0.00 - 0.01 K/cumm [facility] Blood 09/02/2024 5:16 AM CDT 09/02/2024 5:32 AM CDT us Bailee Valiente MD LAB BLOOD ORDERABLES Final Result [facility] Department [place] [address] * (ABNORMAL) Comprehensive metabolic panel (09/02/2024 5:16 AM CDT) Sodium 137 135 - 145 mmol/L Potassium, pl 4.1 3.3 - 4.9 mmol/L [facility] Chloride 98 97 - 110 mmol/L [facility] CO2 32 22 - 32 mmol/L [facility] Anion gap 7 2 - 15 mmol/L [facility] BUN 29(H) 6 - 25 mg/dL [facility] Creatinine 3.05(H) 0.60 - 1.10 mg/dL [facility] Glucose 185 70 - 199 mg/dL [facility] Comment: Interpretive Data Fasting glucose [...] 2022. Calcium 9.0 8.5 - 10.3 mg/dL [facility] Bilirubin, total 1.0 0.1 - 1.2 mg/dL [facility] Protein, pl 6.3(L) 6.5 - 8.5 g/dL [facility] Albumin 3.8 3.5 - 5.0 g/dL [facility] Alk phos 223(H) 40 - 130 Units/L [facility] ALT 11 7 - 45 Units/L [facility] AST 24 10 - 45 Units/L [facility] Blood 09/02/2024 5:16 AM CDT 09/02/2024 5:32 AM CDT us Bailee Valiente MD LAB BLOOD ORDERABLES Final Result Performing Organization Address [facility]/ZIP Co de Phone Number [facility] [place] [address] * Troponin I high-sensitivity 2-hour (09/01/2024 2:58 AM CDT) Trop I hs 5 <=17 ng/L Comment: Interpretive Data For further hscTnI resources including the diagnostic algorithm and an aid in interpretation, copy and paste this link: [email or web address] Current Interpretive Data last revised 2019. Trop I hs delta 0 ng/L [facility] Trop I hs interp Insignificant [facility] Blood 09/01/2024 2:58 AM CDT 09/01/2024 3:13 AM CDT us Diana Cassidy MD LAB BLOOD ORDERABLES Fi nal Result [facility] [place] [address] * ECG 12-LEAD (09/01/2024 2:53 AM CDT) Narrative [facility] - 09/01/2024 2:53 AM CDT Elisha Avila MD 09/01/2024 3:24 AM ECG 12 lead Date/Time: 09/01/2024 2:53 AM Performed by: Elisha Avila MD Authorized by: Diana Cassidy MD us Diana Cassidy MD ECG ORDERABLES Final R esult [facility] * XR Chest PA Lateral 2 Views [...] and read back by: Flower Moser MD ([phone]) on 09/02/2024 03:01:57 by: Radu Helm MT Direct Specimen Exam Stain: Gram Positive Cocci in clusters Time to culture positivity (anaerobic media): 21.4 hours Notification of: Gram Positive Cocci in clusters called to and read back by: Flower Moser MD ([phone]) on 09/02/2024 01:01:22 by: Radu Helm MT [facility] Report Final Report: Staphylococcus epidermidis Single blood culture positive for this microorganism. Isolate is a possible contaminant. If a similar isolate is recovered from a second blood culture collected within 3 days of this culture, both will be evaluated and, if determined to be the same species, antimicrobial susceptibility testing will be performed. (.) [facility] Organism STAPHYLOCOCCUS EPIDERMIDIS [facility] Blood 09/01/2024 2:18 AM CDT 09/01/2024 2:43 AM CDT Narrative [facility] - 09/06/2024 12:48 PM CDT From a [...] performance characteristics have been verified by the [facility] Microbiology Laboratory. For questions about this culture, contact the Microbiology Laboratory at [phone]. Interpretive data was last revised on 24. us Diana Cassidy MD LAB MICROBIOLOGY - GENE RAL ORDERABLES Final Result [facility] Department [place] [address] * US Renal Transplant W Dopplers (09/01/2024 [...] Soto Mena M.D., Ph.D Diana Cassidy MD [facility] PROCEDURES Final Result * (ABNORMAL) Respiratory pathogen panel Nasopharyngeal (09/01/2024 12:58 AM CDT) Influenza A RNA Not Detected Not Detected Influenza B RNA Not Detected Not Detected [facility] RSV RNA Not Detected Not Detected [facility] COVID-19 RNA Not Detected Not Detected [facility] Coronavirus 229E RNA Not Detected Not Detected [facility] Coronavirus HKU1 RNA Not Detected Not Detected [facility] Coronavirus NL63 RNA Not Detected Not Detected [facility] Coronavirus OC43 RNA Not Detected Not Detected [facility] Adenovirus DNA Not Detected Not Detected [facility] Metapneumovirus RNA Not Detected Not Detected [facility] Rhinovirus/Enterov irus RNA Detected(A) Not Detected [facility] Parainfluenza 1 RNA Not Detected Not Detected [facility] Parainfluenza 2 RNA Not Detected Not Detected [facility] Parainfluenza 3 RNA Not Detected Not Detected [facility] Parainfluenza 4 RNA Not Detected Not Detected [facility] B. pertussis DNA Not Detected Not Detected [facility] B. parapertussis DNA Not Detected Not Detected [facility] C. pneumoniae DNA Not Detected Not Detected [facility] M. pneumoniae DNA Not Detected Not Detected [facility] Nasopharyngeal 09/01/2024 12 :58 AM CDT 09/01/2024 2:52 AM CDT Narrative [facility] - 09/01/2024 3:48 AM CDT Is the Patient experiencing symptoms consistent with COVID?->Yes Surveillance testing for transplant patient?->No Interpretive Data The [employer] FilmArray Respiratory Panel (RP2.1) assay is a [...] assay has FDA clearance for testing of STENCIL CUTTER swabs. The performance of additional specimen types has been assessed by the performing laboratory. The performance characteristics of this assay have been determined by [facility] Molecular Infectious Disease Laboratory. Current interpretive data was last revised on 21. Diana Cassidy MD LAB MICROBIOLOGY - GENE RAL ORDERABLES Final Result Performing Organization Address [facility] [place] [address] * Troponin I high-sensitivity series (baseline, 2hr, 4hr, 6hr) (09/01/2024 12:57 AM CDT) Pathologist [facility] Trop I hs 5 <=17 ng/L Comment: Interpretive Data For further hscTnI resources including the diagnostic algorithm and an aid in interpretation, copy and paste this link: https://bjhlab.testcatalog.org/show/[email or web address]-1 Current Interpretive Data last revised 2019. Blood 09/01/2024 12:5 7 AM CDT 09/01/2024 1:20 AM CDT Diana Cassidy MD LAB BLOOD ORDERABLES Fi nal Result Performing Organization Address [facility] Co de Phone Number [facility] [place] [address] * Sepsis Lactate w/ Reflex (09/01/2024 12:57 AM CDT) [facility] Sepsis Lactate 1.8 0.7 - 2.0 mmol/L Blood 09/01/2024 12:5 7 AM CDT 09/01/2024 1:14 AM CDT Diana Cassidy MD LAB BLOOD ORDERABLES Fi nal Result Performing Organization Address [facility] Co de Phone Number [facility] [place] [address] * (ABNORMAL) eGFR (09/01/2024 12:57 AM CDT) Pathologist [facility] eGFR 26(L) >=60 mL/min/1. 73 m2 Comment: [...] ORDERABLES Fi nal Result Performing Organization Address City/[facility] Co de Phone Number [facility] [place] [address] * Differential, auto (09/01/2024 12:57 AM CDT) Neutrophil abs 4.42 1.50 - 6.50 K/cumm Imm gran abs 0.03 0.00 - 0.10 K/cumm [facility] Lymphocyte abs 1.17 0.80 - 3.30 K/cumm [facility] Monocyte abs 0.38 0.20 - 0.80 K/cumm [facility] Eosinophil abs 0.10 0.00 - 0.50 K/cumm [facility] Basophil abs 0.02 0.00 - 0.10 K/cumm [facility] Neutrophil pct 72.3 % [facility] Comment: Interpretive Data Percent cell count reference ranges are not reported, since discordance with absolute values may lead to misinterpretation of CBC data. Current Interpretive Data was last revised on 2017. Imm gran pct 0.5 % [facility] Comment: Interpretive Data Percent cell count reference ranges are not reported, since discordance with absolute values may lead to misinterpretation of CBC data. Current Interpretive Data was last revised on 2017. Lymphocyte pct 19.1 % [facility] Comment: Interpretive Data Percent cell count reference ranges are not reported, since discordance with absolute values may lead to misinterpretation of CBC data. Current Interpretive Data was last revised on 2017. Monocyte pct 6.2 % [facility] Comment: Interpretive Data Percent cell count reference ranges are not reported, since discordance with absolute values may lead to misinterpretation of CBC data. Current Interpretive Data was last revised on 2017. Eosinophil pct 1.6 % [facility] Comment: Interpretive Data Percent cell count reference ranges are not reported, since discordance with absolute values may lead to misinterpretation of CBC data. Current Interpretive Data was last revised on 2017. Basophil pct 0.3 % [facility] Comment: Interpretive Data Percent cell count reference ranges are not reported, since discordance with absolute values may lead to misinterpretation of CBC data. Current Interpretive Data was last revised on 2017. Blood 09/01/2024 12:5 7 AM CDT 09/01/2024 1:20 AM CDT us Diana Cassidy MD LAB BLOOD ORDERABLES Fi nal Result [facility] [place] [address] * (ABNORMAL) Urinalysis reflex to microscopic and culture Urine, bladder (09/01/2024 12:57 AM CDT) Color, ur Yellow Yellow Clarity, ur Clear Clear [facility] Specific gravity, ur 1.020 1.003 - 1.030 [facility] pH, urine 5.5 [facility] Comment: Interpretive Data U rine pH is affected by diet, medications, systemic acid-base disturbances, and renal tubular function. pH may affect urinary stone formation. For example, urine pH below 6.0 may help reduce the tendency for calcium phosphate stones and pH greater than 6.0 may reduce the tendency for uric acid stone formation. Source: [facility] Current Interpretive Data was last revised on 2017 Protein, ur ql Trace Negative [facility] Glucose, ur ql Negative Negative [facility] Ketones, ur Trace Negative [facility] Bilirubin, ur Negative Negative [facility] Blood, ur Negative Negative [facility] Urobilinogen, ur 2.0(A) <2.0 mg/dL [facility] Nitrite, ur Negative Negative [facility] Leukocyte esterase, ur Negative Negative [facility] UA reflex comment Reflex conditions for microscopic UA and culture not met. [facility] Urine, bladder 09/01/2024 12 :57 AM CDT 09/01/2024 1:14 AM CDT Diana Cassidy MD LAB MICROBIOLOGY - [facility] ORDERABLES Final Result [facility] [place] [address] * (ABNORMAL) CBC with auto differential (09/01/2024 12:57 AM CDT) WBC 6.12 3.80 - 9.90 K/cumm Hgb 12.7 11.9 - 15.5 g/dL [facility] Hct 35.2(L) 35.6 - 45.5 % [facility] Plt 115(L) 150 - 400 K/cumm [facility] MPV 11.0 9.1 - 12.3 fL [facility] RBC 3.20(L) 3.90 - 5.20 M/cumm [facility] MCV 110.0(H) 81.3 - 96.4 fL [facility] MCH 39.7(H) 27.1 - 33.3 pg [facility] MCHC 36.1(H) 32.3 - 35.7 g/dL [facility] RDW CV 14.2 11.1 - 14.9 % [facility] RDW SD 57.3(H) 35.7 - 48.1 fL [facility] NRBC abs 0.00 0.00 - 0.01 K/cumm [facility] Blood 09/01/2024 12:5 7 AM CDT 09/01/2024 1:20 AM CDT Diana Cassidy MD LAB BLOOD ORDERABLES Fi nal Result Performing Organization Address [facility] de Phone Number [facility] [place] [employer] [place] [address] * Tacrolimus level random (09/01/2024 12:57 AM CDT) Tacrolimus random 23.8 ng/mL Comment: Interpretive Data Testing performed by liquid chromatography-tandem mass spectrometry. Therapeutic concentrations vary depending on type of transplanted organ and time elapsed since transplant. Typical trough concentrations range from 5-15 ng/mL. This test was developed and its performance characteristics determined by the [facility] Laboratory consistent with CLIA requirements. This test has not been cleared or approved by the US Food and Drug administration. Current interpretive data last reviewed 2019. Blood 09/01/2024 12:5 7 AM CDT 09/01/2024 1:20 AM CDT Diana Cassidy MD LAB BLOOD ORDERABLES Fi nal Result Performing Organization Address City/[facility]/ZIP Co de Phone Number [facility] [place] [place] [address] * Blood culture Blood (09/01/2024 12:57 AM [...] performance characteristics have been verified by the [facility] Microbiology Laboratory. For questions about this culture, contact the Microbiology Laboratory at [phone]. Interpretive data was last revised on 24. Diana Cassidy MD LAB MICROBIOLOGY - GENE RAL ORDERABLES Final Result [facility] Department [place] [address] * Phosphorus (09/01/2024 12:57 AM CDT) Phosphorus, pl 2.9 2.3 - 4.5 mg/dL Blood 09/01/2024 12:5 7 AM CDT 09/01/2024 1:20 AM CDT Diana Cassidy MD LAB BLOOD ORDERABLES Fi nal Result [facility] [place] [address] * Magnesium (09/01/2024 12:57 AM CDT) [facility] Magnesium 1.5 1.4 - 2.5 mg/dL Blood 09/01/2024 12:5 7 AM CDT 09/01/2024 1:20 AM CDT Diana Cassidy MD LAB BLOOD ORDERABLES Fi nal Result [facility] [place] [address] * Lipase (09/01/2024 12:57 AM CDT) [facility] Lipase 19 10 - 99 Units/L Blood 09/01/2024 12:5 7 AM CDT 09/01/2024 1:20 AM CDT Diana Cassidy MD LAB BLOOD ORDERABLES Fi nal Result Performing Organization Address [facility]/ZIP Co de Phone Number [facility] [place] [address] * (ABNORMAL) Comprehensive metabolic panel (09/01/2024 12:57 AM CDT) [facility] Sodium 138 135 - 145 mmol/L Potassium, pl 4.5 3.3 - 4.9 mmol/L [facility] Comment:Hemolyzed; Potassium value may be falsely elevated by as much as 0.3-0.5 mmol/L. Suggest redraw and reanalysis. Chloride 105 97 - 110 mmol/L [facility] CO2 24 22 - 32 mmol/L [facility] Anion gap 9 2 - 15 mmol/L [facility] BUN 21 6 - 25 mg/dL [facility] Creatinine 2.34(H) 0.60 - 1.10 mg/dL [facility] Glucose 89 70 - 199 mg/dL [facility] Comment: Interpretive Data Fasting glucose [...] Calcium 8.7 8.5 - 10.3 mg/dL [facility] Bilirubin, total 1.1 0.1 - 1.2 mg/dL [facility] Protein, pl 7.1 6.5 - 8.5 g/dL [facility] Albumin 3.9 3.5 - 5.0 g/dL [facility] Alk phos 257(H) 40 - 130 Units/L [facility] ALT 14 7 - 45 Units/L [facility] AST 37 10 - 45 Units/L [facility] Comment:Hemolyzed; result ma y be falsely elevated Blood 09/01/2024 12:5 7 AM CDT 09/01/2024 1:20 AM CDT Diana Cassidy MD LAB BLOOD ORDERABLES Fi nal Result [facility] [place] [address] * Surgical pathology (08/02/2024 9:18 AM CDT) Tissue (Miscellaneous) 08/02/2024 9:18 AM CDT 08/02/2024 9:18 AM CDT Narrative [facility] - 08/14/2024 2:01 PM CDT EPIC results best viewed via link to PDF [facility] Pathology Consult Service Alan Doreen [address], [address], [place] [address] Note to Patients: This report [...] SURGICAL PATHOLOGY REPORT * Consult Report * [facility] is providing an additional review of previously collected tissue. FINAL Patient Name: MISHA BROWNE Address: [address] [place] [id number] Gender: F : 1980 (Age: 43) [facility] #: [id number] Patient Type: WILL Location: UNKNOWN Taken: 08/02/2024 Received: 08/02/2024 Accessioned: 08/05/2024 Reported: 08/14/2024 Physician(s): Beatriz Lee M.D. [facility] Department of Pathology [address] [place] [address] [place] [id number] P: [phone] F: [phone] Diagnosis: Consult material received from [place], [place] (OSC: [id number]; 11/17/2023) A. 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 Liver, allograft, approximately 3 years 6 months, biopsy - No evidence of acute cellular rejection - Mild sinusoidal dilitation - No significant steatosis, fibrosis (trichrome), or ductal injury - Copper stain is negative - No significant stainable iron - No alpha [address] [facility]/08/13/2024 12:55 By this signature, I attest that the above diagnosis is based upon my personal examination of the slides(and/or other material indicated in the diagnosis). Kayla Burdick M.D. Report Electronically Reviewed and Signed Out By Kayla Burdick M.D. 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 Course was complicated by biopsy [...] show moderate inflammatory infiltrate. There is patchy yznw-fh-[id number] tubulitis. Small arteries and arterioles show mild [...] Received for review are ten slides labeled [id number], and nine slides labeled [id number], accompanied by a corresponding pathology report. The material originates from [facility], [place], [place]. Selected slide(s) may be digitally scanned [...] occasional mononuclear cells Arteriolar hyalinosis (ah): ah1 Irmq-[id number] PAS-positive hyaline thickening in at least one [...] the Department of Pathology and Immunology at [facility], [address] [place] [id number] CLIA # [id number] The performance characteristics of the testing cited in this report (if any) were determined by the [facility] Department of Pathology and Immunology [facility], as part of an ongoing design quality engineer program and in compliance with federally mandated [...] characteristics determined by the [facility], [facility] Department of Pathology and Immunology. It has not been cleared or approved by the U.S. Food and Drug Administration. Any test designated as LDT was developed and its performance characteristics determined by [facility]. It has not been cleared or approved by the FDA. This test is used for clinical purposes and should not be regarded as investigational or for research. Report images and/or scanned reports, if included, only viewable in PDF version of report. us Beatriz Lee MD LAB PATHOLOGY ORDERA BLES Final Result [facility] [address] [address] * XR Scoliosis 6 or More Views [...] only and have not been reviewed by [facility] Radiology. There will be no report generated by a [facility] Radiologist. Narrative [email or web address] - 07/12/2024 5:48 PM CDT EXAMINATION: Images For Reference Purposes Only Jessee Morton MD IMG CT PROCEDURES Final Re sult Performing Organization Address [facility] de Phone Number [email or web address] * Neuro CT Outside Reference (07/12/2024 5:46 PM CDT) Impressions [email or web address] - 07/12/2024 5:46 PM CDT These images are for Reference purposes only and have not been reviewed by [facility] Radiology. There will be no report generated by a [facility] Radiologist. Narrative [facility] - 07/12/2024 5:46 PM CDT EXAMINATION: Images For Reference Purposes Only Jessee Morton MD IMG CT PROCEDURES Final Re sult Performing Organization Address [facility] de Phone Number [email or web address] * Neuro MR Outside Reference (07/12/2024 5:44 PM CDT) Impressions [email or web address] - 07/12/2024 5:44 PM CDT These images are for Reference purposes only and have not been reviewed by [facility] Radiology. There will be no report generated by a [facility] Radiologist. Narrative [email or web address] - 07/12/2024 5:44 PM CDT EXAMINATION: Images For Reference Purposes Only Jessee Morton MD IMG MRI PROCEDURES Final R esult Performing Organization Address [facility] de Phone Number [email or web address] * Neuro MR Outside Reference (07/12/2024 5:43 PM CDT) Impressions [email or web address] - 07/12/2024 5:43 PM CDT These images are for Reference purposes only and have not been reviewed by [facility] Radiology. There will be no report generated by a [facility] Radiologist. Narrative [email or web address] - 07/12/2024 5:43 PM CDT EXAMINATION: Images For Reference Purposes Only Jessee Morton MD IMG MRI PROCEDURES Final R esult Performing Organization Address [facility] de Phone Number [email or web address] * XR Outside Reference (07/09/2024 8:48 AM CDT) Impressions [email or web address] - 07/09/2024 8:48 AM CDT These images are for Reference purposes only and have not been reviewed by [facility] Radiology. There will be no report generated by a [facility] Radiologist. Narrative [email or web address] - 07/09/2024 8:48 AM CDT EXAMINATION: Images For Reference Purposes Only Jessee Morton MD IMG XR PROCEDURES Final Re sult Performing Organization Address [facility] de Phone Number [email or web address] * XR Outside Reference (07/09/2024 8:46 AM CDT) Impressions [email or web address] - 07/09/2024 8:46 AM CDT These images are for Reference purposes only and have not been reviewed by [facility] Radiology. There will be no report generated by a [facility] Radiologist. Narrative [facility] - 07/09/2024 8:46 AM CDT EXAMINATION: Images For Reference Purposes Only Jessee Morton MD IMG XR PROCEDURES Final Re sult Performing Organization Address [facility] de Phone Number [email or web address] * XR Outside Reference (07/09/2024 8:44 AM CDT) Impressions [email or web address] - 07/09/2024 8:44 AM CDT These images are for Reference purposes only and have not been reviewed by [facility] Radiology. There will be no report generated by a [facility] Radiologist. Narrative [facility] - 07/09/2024 8:44 AM CDT EXAMINATION: Images For Reference Purposes Only us Jessee Morton MD IMG XR PROCEDURES Final Re sult Performing Organization Address City/[facility]/ZIP Co de Phone Number [email or web address] * Hepatitis panel, acute (04/16/2020 6:35 AM PIT CRANE OPERATOR) Hep A IgM Nonreactive Nonreactive [facility] Comment: Interpretive Data: If Hep A IgM Ab is reported as Equivocal, a new sample should be drawn in two weeks for testing. Current interpretive data was last revised on 19. Hep B core IgM Nonreactive Nonreactive [facility] Comment: Interpretive Data If HepB Core IgM Ab is reported as Equivocal, a new sample should be drawn in two weeks for testing. Current interpretive data was last revised on 19. Hep C Ab Nonreactive Nonreactive [facility] Comment:Antibodies to HCV no t detected. Does NOT exclude the possibility of recent exposure to HCV. HepBsAg Nonreactive Nonreactive [facility] Blood specimen (specimen) 04/16/2020 6:35 AM PIT CRANE OPERATOR 04/16/2020 7:34 AM PIT CRANE OPERATOR us Jacob Gates MD LAB MICROBIOLOGY - GENER AL ORDERABLES Final Result Performing Organization Address [facility] Co de Phone Number ALEK [facility] [place] [address] from Last 3 Months or Most Recently Relevant to Health Maintenance Insurance [employer] OPEN ACCESS [facility] [place] [address] [place]IG[place] Advance Directives For more information, please contact: [phone] * Full Code (Latest Code Status on [...] 6:15 AM 07/25/2019 11:51 PM Care Teams Rand Butting Machine Operator Relationship Specialty Start Date End Date Lyly Fiore NP [address] [place] [address] PCP - General Nurse Practitioner 05/29/24 Beatriz Lee MD [address] [place] [address] Referring Physician Gastroenterology 07/25/19 Taylor Kitchen, digital media designerLug Loader 05/29/24
--- OUTSIDE RECORDS SUMMARY | 2024-10-05 21:08 | XMS_ITS | Encounter Summary ---
Author Organization [facility] Address [address] [facility] [place] [address] Care Team Providers Care Ticket Speculator Name Role Phone Hermes Ramirez MD Primary Care Provider [phone] Reason for Visit * Reason Onset Date Comments Refill Request 04/08/2023 Encounter Details Date Type Department Care Team (Late st Contact Info) Description 04/08/2023 Refill [facility] [address] [address] Marion Pedroza MD [address] [place] [address] Refill Request Social History Tobacco [...] Currently or in the past 3 m [facility], have you worried your food would [...] on file Legal Sex Female 1:03 PM 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
--- OUTSIDE RECORDS SUMMARY | 2024-10-05 21:08 | XMS_ITS | Clinical Summary ---
Author Organization [facility] Address [address] [place] [address] Care Team Providers Care Electrotype Servicer Name Role Phone Hermes Ramirez MD Primary [...] Dates Next Due Tetanus-Diphth Toxoids Injection 10/18/2021 Vbdudwy-Zmrurpwgpp-Eythdfkac Pertussis (Tdap) Injection 10/18/2021,05/10/2017,05/25/2012 hepatitis A vaccine [...] on file Legal Sex Female 1:03 PM PLUMBING TECHNICIAN Gender Identity Not on file Sexual [...] this topic Medical Devices Implanted Type Area Net Manager Device Identifier Shelf Expiration Date Model / Serial / Lot Liver - [id number] Implanted:Qty: 1 on 05/09/2020 by Nirav Carpio MD at [facility] N/A: Abdomen ORGAN PROCUREMENT ORGANIZATION 05/10/2020 ORGAN - LIVER / [id number] / LOT NA Left Kidney - [id number] Implanted:Qty: 1 on 05/09/2020 by Nirav Carpio MD at [facility] N/A: Abdomen ORGAN PROCUREMENT ORGANIZATION 05/10/2020 ORGAN - LEFT KIDNEY / [id number] / LOT NA Stent Ureteral L12 Cm L100 Cm Od6 Fr .028 In Closed End Design One Step Insertion Radiopaque Filler Double-J Silicone Disposable - [id number] Implanted:Qty: 1 on 05/09/2020 by Nirav Carpio MD at [facility] N/A: Abdomen OLYMPUS - GYRUS ACMI WAGNER 02/11/2025 [id number] / / [id number] Stent Ureteral L12 Cm L100 Cm Od6 Fr .028 In Closed End Design One Step Insertion Radiopaque Filler Double-J Silicone Disposable - [id number] Implanted:Qty: 1 on 05/09/2020 by Nirav Carpio MD at [facility] N/A: Abdomen OLYMPUS - GYRUS ACMI WAGNER 02/11/2025 [id number] / / [id number] Device Closure L70 Cm .038 In Insertion Sheath Arteriotomy Qm Consultant Guidewire J Biology Department Chair Vascular Angio-Seal Evolution ([id number]) - [id number] Implanted:Qty: 1 on 07/20/2020 at [facility] TERUMO [employer] WAGNER 03/19/2021 [id number] / / [id number] Procedures Procedure Name Priority Date/Time Associated Diagnosis Comments HEPATITIS C VIRUS ANTIBODY Routine 11/07/2023 5:43 AM CDT HIV RNA QUANTITATION (HIV VIRAL LOAD) Routine 06/17/2020 9:55 AM CDT Other rodent exterminator (current) drug therapy Encounter for aftercare following liver transplant (CMS-HCC) Status post kidney transplant PATHOLOGY GYNE CYTOLOGY 04/28/2020 12:00 AM PLUMBING TECHNICIAN from Last 3 Months or Most Recently Relevant to Health Maintenance Results * Hepatitis C Virus Antibody (11/07/2023 5:43 AM CDT) Pathologist [facility] HEP C AB Not Detected Not Detected [facility] Comment: Antibodies to HCV not detected. This does not exclude the possibility of exposure to HCV. 11/07/2023 5:43 AM CDT 11/07/2023 6:16 AM CDT Phillip Mustafa MD LAB BLOOD ORDERABLES Final Re sult [address] [address] * HIV RNA Quantitation (06/17/2020 9:55 AM CDT) [facility] HIV-1 RNA QUANTITATION HIV RNA Quantitation [facility] HIV-1 RNA QUANTITATION Less than 40 Less than 40 Copies/m L [facility] HIV LOG RESULT Less than 1.6 R [facility] Comment: Methodology: Quantitation of HIV RNA [...] PA-C LAB BLOOD MICRO Final Resu lt [address] [address] * Pathology Gyne Cytology: (04/28/2020 12:00 AM PLUMBING TECHNICIAN) [facility] AP [facility] COPA TH CONVERSION PATHOLOGY RESULT Department of Pathology [facility] [address] [facility] [place] [address] Final *Clinical Data Electronic version* This report may not match the original report format REPORT DATE: 05/04/2020 FINAL CYTOLOGIC DIAGNOSIS GYNE THIN PREP + HPV HIGH RISK Adequacy: Satisfactory for evaluation, but limited by no transformation zone. General Category: Negative for intraepithelial lesion or malignancy. Description: Fungal organisms morphologically consistent with Lydia. HPV mRNA E6/E7 NOT DETECTED Performed using the APTIMA HPV Assay ([employer]) This assay detects E6/E7 viral messenger RNA (mRNA) from 14 high risk HPV types (16, 18, 31, 33, 35, 39, 45, 51, 52, 56, 58, 59, 66, 68) [Reference Range = NOT DETECTED] TEST PERFORMED AT: [facility], [address] [place] [address]. Services Engineer: David Kc MD. IA # [id number]. Attending Pathologist: Destiny Obregon MD, PhD * Electronically signed Review by Cloud Administrator: Akil De La Cruz * Electronically signed [...] developed and the performance characteristics determined by [facility] Department of Pathology. These tests have not been cleared or approved for commercial use by the U.S. Food and Drug Administration. This test is used for clinical purposes. It should not be regarded as investigational or for research. The FDA has determined that FDA review is not required for such assays. This is for [id number]. CLINICAL INFORMATION Date of Last Menstrual Period: UNKNOWN Other Clinical Conditions: LSIL or higher, bx/pap HPV, Hx/Dx/Rx Intradepartmental Consultation Pathologist: ICD-CM(s): A; Z12.4 Z11.51 CPT(s): A; 22433, 78933 [facility] COPATH CONVERSION AP Final Diagnosis GYNE THIN PREP + HPV HIGH RISK Adequacy: Satisfactory for evaluation, but limited by no transformation zone. General Category: Negative for intraepithelial lesion or malignancy. Description: Fungal organisms morphologically consistent with Lydia. HPV mRNA E6/E7 NOT DETECTED Performed using the APTIMA HPV Assay ([employer]) This assay detects E6/E7 viral messenger RNA (mRNA) from 14 high risk HPV types (16, 18, 31, 33, 35, 39, 45, 51, 52, 56, 58, 59, 66, 68) [Reference Range = NOT DETECTED] TEST PERFORMED AT: [facility], [address] [place] [address]. Services Engineer: David Kc MD. CLIA # [id number]. [facility] COPATH CONVERSION AP Notes This case was reviewed by a pathologist for QC purposes only. [facility] COPATH CONVERSION AP ICD-10 Code Z12.4 Z11.51 [facility] COPATH CONVERSION HPV HR SCREEN SEE COMMENT [facility] COPATH CONVERSION 04/28/2020 04/29/2020 7:2 0 AM PLUMBING TECHNICIAN Dulce Austin MD PATHOLOGY Edited Result - Final [facility] COPATH CONVERSION from Last 3 Months or Most Recently Relevant to Health Maintenance Advance Directives Documents on File Type Date Recorded Patient Hostage Negotiator Expl anation Advance Directives 07/18/2020 9:50 AM [...] 1:35 AM 12/14/2020 1:59 PM Care Teams Electrotype Servicer Relationship Specialty Start Date End Date Hermes Ramirez MD [address] [place] [id number] PCP - General 05/28/20
--- OUTSIDE RECORDS SUMMARY | 2024-10-05 21:08 | XMS_ITS | Encounter Summary ---
Author Organization [facility] Address [address] [facility] [place] [address] Care Team Providers Care Flying Squad Salesperson Name Role Phone Hermes Ramirez MD Primary Care Provider Reason for Visit * Reason Comments Refill Request Encounter Details Date Type Department Care Team ([facility] st Contact Info) Description 01/10/2023 Refill [facility] [address] [facility] [address] [place] [address] Allen Manzano, PAMoisésC [address] 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
--- OUTSIDE RECORDS SUMMARY | 2024-10-05 21:08 | XMS_ITS | Encounter Summary ---
Author Organization [facility] Address [address] [place] [address] Care Team Providers Care Loss Control Consultant Name Role Phone Ashley ZUNIGA MD, Hermes Perez Primary Care Provid er Lyly Fiore NP Primary Care Provider [phone] Encounter Details Date Type Department Care Team (Late st Contact Info) Description 08/22/2018 Abstract [facility] [address] [place] [id number] Social History Tobacco Use Types Packs/Day Years Used Date Smoking Tobacco: Every Day Cigarettes 0.5 15 Smokeless Tobacco: Never Alcohol Use Standard Drinks/Week Comments No 0 (1 standard drink = 0.6 oz pur e alcohol) Comments No Sex and Gender Information Value Date Recorded Sex Assigned at Female 04/05/2024 4:26 PM BASEBALL PITCHER Legal Sex Female 9:15 PM BASEBALL PITCHER Gender Identity Not on file Sexual Orientation Not on file documented as of this encounter Plan of Treatment Not on file documented as of this encounter Visit Diagnoses Not on filedocumented in this encounter Additional Health Concerns Infection Onset Date Last Indicated Resolved Time COVID-19 Rule Out 03/30/2020 03/30/2020 03/30/2020 9:29 PM BASEBALL PITCHER COVID-19 Rule Out 03/30/2020 03/30/2020 03/31/2020 12:28 PM BASEBALL PITCHER COVID-19 Rule Out 02/16/2024 02/16/2024 02/16/2024 9:16 PM BASEBALL PITCHER Rhinovirus 02/16/2024 02/16/2024 02/26/2024 12:3 2 AM BASEBALL PITCHER COVID-19 Rule Out 08/26/2024 08/26/2024 08/26/2024 11:07 PM CDT Respiratory Rule Out 08/26/2024 08/26/2024 025 11:06 PM CDT documented as of this encounter Care Teams Loss Control Consultant Relationship Specialty Start Date End Date Hermes Ramirez III, MD [address] [address] PCP - General FAMILY PRACTICE 06/20/17 04/13/24 Lyly Fiore NP [address] [place] [address] PCP - General NURSE PRACTITIONER 04/14/24 documented as of this encounter
--- OUTSIDE RECORDS SUMMARY | 2024-10-05 21:08 | XMS_ITS | Encounter Summary ---
Author Organization [facility] Address [address] [place] [address] Care Team Providers Care Impregnator Operator Name Role Phone Hermes Ramirez MD Primary Care Provider [phone] Reason for Visit * Reason Comments Refill Request Encounter Details Date Type Department Care Team (Late st Contact Info) Description 10/21/2020 Refill [facility] [address] [facility] [address] [place] [address] Nirav Carpio MD [address] [place] [phone] Refill Request Social History Tobacco Use [...] on file Legal Sex Female 1:03 PM 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
--- OUTSIDE RECORDS SUMMARY | 2024-10-05 21:08 | XMS_ITS | Encounter Summary ---
Author Organization [facility] Address [address] [place] [address] Care Team Providers Care Custom Shoemaker Name Role Phone Ashley ZUNIGA MD, Hermes Primary Care Provid er Lyly Fiore NP Primary Care Provider [phone] Encounter Details Date Type Department Care Team (Late st Contact Info) Description 08/25/2018 Abstract [facility] CONVERSION [address] [place] [address] , Generic Conversion, Social History Tobacco Use Types Packs/Day Years Used Date Smoking Tobacco: Every Day Cigarettes 0.5 15 Smokeless Tobacco: Never Alcohol Use Standard Drinks/Week Comments No 0 (1 standard drink = 0.6 oz pur e alcohol) Comments No Sex and Gender Information Value Date Recorded Sex Assigned at Female 04/05/2024 4:26 PM RIDER TICKET WORKER Legal Sex Female 9:15 PM RIDER TICKET WORKER Gender Identity Not on file Sexual Orientation Not on file documented as of this encounter Plan of Treatment Not on file documented as of this encounter Visit Diagnoses Not on filedocumented in this encounter Additional Health Concerns Infection Onset Date Last Indicated Resolved Time COVID-19 Rule Out 03/30/2020 03/30/2020 03/30/2020 9:29 PM RIDER TICKET WORKER COVID-19 Rule Out 03/30/2020 03/30/2020 03/31/2020 12:28 PM RIDER TICKET WORKER COVID-19 Rule Out 02/16/2024 02/16/2024 02/16/2024 9:16 PM RIDER TICKET WORKER Rhinovirus 02/16/2024 02/16/2024 02/26/2024 12:3 2 AM RIDER TICKET WORKER COVID-19 Rule Out 08/26/2024 08/26/2024 08/26/2024 11:07 PM CDT Respiratory Rule Out 08/26/2024 08/26/2024 025 11:06 PM CDT documented as of this encounter Care Teams Custom Shoemaker Relationship Specialty Start Date End Date Hermes Ramirez III, MD [address] [address] PCP - General FAMILY PRACTICE 06/20/17 04/13/24 Lyly Fiore NP [address] [place] [address] PCP - General NURSE PRACTITIONER 04/14/24 documented as of this encounter
[2024-10-05] MEDS: ONDANSETRON INJ 4 MG/2 ML VIAL IV PUSH (21:13)
[2024-10-05] MEDS: HYDROmorphone HCL INJ (*CRX) 2 MG/ML VIAL 1 MG IV PUSH (21:13)
[2024-10-05] MEDS: PROMETHAZINE HCL 25 MG/ML AMPUL 12.5 MG IV PUSH (21:13)
[2024-10-05] MEDS: MORPHINE SULFATE (*CRX) 4 MG/ML INJ IV PUSH (21:45)
[2024-10-05 22:08] VITALS: BP 170/102; PULSE 73; RESP 18; TEMP 36.6; O2SAT 99
== END 2024-10-05 22:08 | disposition home or self-care (01) ==
PROVIDERS: Emergency Provider Emergency Medicine
DX: G43.909 Migraine, unspecified, not intractable, without status migrainosus (principal); M54.50 Low back pain, unspecified; G89.29 Other chronic pain
CPT/HCPCS: 96361; 96374; 96375; 99284; J1171; J1200; J2270; J2405; J2550; J7040

== ENCOUNTER 2024-10-08 14:05 | Emergency (ER) | payer OTHER, MEDICAID, SELFPAY ==
[2024-10-08 14:05] VITALS: BP 175/107; PULSE 119; RESP 18; TEMP 36.7; O2SAT 96
--- OUTSIDE RECORDS SUMMARY | 2024-10-08 14:13 | XMS_ITS | Encounter Summary ---
Author Organization [facility] Address [address] [place] [address] Care Team Providers Care Intermediate Teacher Name Role Phone Beartiz Lee MD Unavailable [phone] Lyly Fiore PRODUCTION CONTROL EXPERT Primary Care Provider Taylor Kitchen RN Unavailable Unav ailable Encounter Details Date Type Department Care Team (Late st Contact Info) Description 08/15/2024 Results [facility]-Up [facility] Transplant Liver [address] [facility] [phone] [place] [address] Taylor Kitchen RN Surgical pathology Social History [...] on file Legal Sex Female 10:10 PM LEGAL CONSULTANT Gender Identity Not on file Sexual [...] documented as of this encounter Care Teams Intermediate Teacher Relationship Specialty Start Date End Date Lyly Fiore NP [address] [place] [address] PCP - General Nurse Practitioner 05/29/24 Beatriz Lee MD [address] [place] [address] Referring Physician Gastroenterology 07/25/19 Taylor Kitchen, fixer boarding roomDebone Processing Supervisor 05/29/24 documented as of this encounter
--- OUTSIDE RECORDS SUMMARY | 2024-10-08 14:13 | XMS_ITS | Clinical Summary ---
Author Organization [facility] Address [facility] [place] [address] Care Team Providers Care Rubber Mill Operator Name Role Phone ChelsyLyly scahefer ELISA Primary Care Provider [phone] Allergies Active Allergy Reactions Criticality Noted Date [...] Problem Noted Date Diagnosed Date Acute CHF ([facility] 02/20/2024 Viral infection 02/20/2024 Rectus sheath hematoma, initial encounter 2017 Cervical dysplasia 10/26/2016 History of vulvar dysplasia 10/26/2016 Gastric ulcer 10/24/2016 Pancreatitis ([facility]) 10/24/2016 Chronic kidney disease 10/24/2016 Anemia, unspecified 05/04/2012 Benign gestational thrombocytopenia ([facility]) History of cone biopsy of cervix 01/04/2012 History of liver transplant ([facility]) Acute pharyngitis 11/19/2010 Abdominal pain 11/13/2010 Aphthous ulcer 11/01/2010 Anxiety 07/21/2010 Encounters Date Type Department Care Team Description 09/14/2024 12:28 AM CDT - 09/14/2024 1:50 AM CDT Emergency [facility] [address] [place] [address] [place] [address] Zack Kc MD Back Pain; Headache Discharge Disposition: Home or Self Care (Routine Discharge) 09/13/2024 Travel 08/28/2024 10:52 PM CDT - 08/29/2024 3:30 AM CDT Emergency [facility] [address] [place] [address] [place] [address] Radu Loya MD Cough; Vomiting; URI Discharge Disposition: Home or Self Care (Routine Discharge) 08/28/2024 Travel 08/26/2024 10:28 PM CDT - 08/27/2024 12:30 AM CDT Emergency [facility] [address] [place] [address] Karmen Byrd PA Medical Screening Discharge Disposition: Home or Self Care (Routine Discharge) 08/26/2024 Travel 08/08/2024 10:19 PM CDT - 08/08/2024 10:39 PM CDT Emergency [facility] [address] [place] [address] Roopa Damon NP Back Pain Discharge Disposition: Home or Self Care (Routine Discharge) 08/08/2024 Travel 08/07/2024 11:33 PM CDT - 08/08/2024 12:45 AM CDT Emergency [facility] [address] [place] [address] Danish Menjivar MD Back Pain; Urinary Symptoms Discharge Disposition: Home or Self Care (Routine Discharge) 08/07/2024 Travel 07/31/2024 1:03 PM CDT - 07/31/2024 2:31 PM CDT Emergency [facility] [address] [place] [address] Back Pain; Leg Pain Discharge Disposition: Home or Self Care (Routine Discharge) 07/31/2024 12:15 AM CDT - 07/31/2024 1:13 AM CDT Emergency [facility] [address] [place] [address] Back Pain Discharge Disposition: Left Against Medical [...] any time in the past 12 m [facility], were you homeless or living in a penitentiary (including now)? No 02/20/2024 Comments No Sex and Gender Information Value Date Recorded Sex Assigned at Female 04/05/2024 4:26 PM SUPERVISOR MAJOR APPLIANCE ASSEMBLY Legal Sex Female 9:15 PM SUPERVISOR MAJOR APPLIANCE ASSEMBLY Gender Identity Not on file Sexual Orientation [...] Years) (1 of 2 - PCV) 2001 HPV Vaccines (1 - Risk 3-dose SCDM series) 2009 Hepatitis B Vaccines (3 of 3 - [...] exists Hepatitis C Completed 11/07/2023, 10/19, 11/07/2023 Meningococcal B Vaccine Aged Out No l [...] (ABNORMAL) COMPREHENSIVE METABOLIC PANEL (08/28/2024 11:31 PM T) Only the most recent of2 resultswithin the time period is included. SODIUM S/P/B 140 136 - 145 MMOL/L 08/29/2024 12:04 AM [facility] POTASSIUM S/P/B 4.0 3.6 - 5.0 MMOL/L 08/29/2024 12:04 AM [facility] CHLORIDE S/P/B 111 97 - 115 MMOL/L 08/29/2024 12:04 AM [facility] CO2 26.6 21.0 - 32.0 MMOL/L 08/29/2024 12:04 AM [facility] GLUCOSE 104(H) 70 - 99 MG/DL 08/29/2024 12:04 AM [facility] Comment: FASTING GLUCOSE 100 TO 125 MG/DL IS CONSISTENT WITH IMPAIRED FASTING GLUCOSE. FASTING GLUCOSE >125 MG/DL IS CONSISTENT WITH DIABETES. RANDOM GLUCOSE >200 MG/DL WITH HYPERGLYCEMIC SYMPTOMS IS CONSISTENT WITH DIABETES. PER ADA GUIDELINES BUN 23(H) 7 - 18 MG/DL 08/29/2024 12:04 AM [facility] CREATININE S/P/B 2.26(H) 0.55 - 1.02 MG/DL 08/29/2024 12:04 AM [facility] CALCIUM S/P/B 8.5 8.5 - 10.1 MG/DL 08/29/2024 12:04 AM [facility] BILIRUBIN TOTAL S/P/B 1.6(H) 0.2 - 1.0 MG/DL 08/29/2024 12:04 AM [facility] Comment: THIS ASSAY IS NOT RECOMMENDED FOR PATIENTS UNDERGOING TREATMENT WITH ELTROMBOPAG DUE TO THE POTENTIAL FOR FALSELY ELEVATED RESULTS. ALKALINE PHOSPHATASE S/P/B 244(H) 37 - 98 U/L 08/29/2024 12:04 AM [facility] AST 25 15 - 37 U/L 08/29/2024 12:04 AM [facility] ALT 21 13 - 56 U/L 08/29/2024 12:04 AM [facility] TOTAL PROTEIN S/P/B 6.2(L) 6.4 - 8.0 G/DL 08/29/2024 12:04 AM [facility] ALBUMIN S/P/B 3.3(L) 3.4 - 5.0 G/DL 08/29/2024 12:04 AM [facility] ANION GAP 2.4 2.0 - 10.0 MMOL/L 08/29/2024 12:04 AM [facility] OSMOLALITY (CALC) 294 MOSM/KG 025 12:04 AM [facility] GFR ESTIMATE 27(L) >90 ML/MIN/1. 73 M2 08/29/2024 12:04 AM [facility] GFR NOTES GFR REFERENCE S: 08/29/2024 12:04 AM [facility] Comment: THE ESTIMATED GFR IS [...] CDT Radu Loya MD LABORATORY Final Result [facility] [address] [id number], * (ABNORMAL) CBC W/DIFF AUTOMATED (08/28/2024 11:31 PM CDT) Only the most recent of3 resultswithin the time period is included. WBC 5.58 4.00 - 10.80 x10'3/uL 08/28/2024 11:44 PM CDT [facility] RBC 3.09(L) 4.10 - 5.40 x10'6/uL 08/28/2024 11:44 PM CDT [facility] HGB 12.4 12.0 - 16.0 G/DL 08/28/2024 11:44 PM CDT [facility] HCT 33.6(L) 36.0 - 47.0 % 08/28/2024 11:44 PM CDT [facility] MCV 108.7(H) 78.0 - 100.0 FL 08/28/2024 11:44 PM CDT [facility] MCH 40.1(H) 27.0 - 31.0 PG 08/28/2024 11:44 PM CDT [facility] MCHC 36.9(H) 33.0 - 36.0 G/DL 08/28/2024 11:44 PM CDT [facility] RDW 13.9 11.5 - 14.5 % 08/28/2024 11:44 PM CDT [facility] PLT 123(L) 150 - 350 x10'3/uL 08/28/2024 11:44 PM CDT [facility] MPV 11.0(H) 7.4 - 10.4 FL 08/28/2024 11:44 PM CDT [facility] DIFFERENTIAL TYPE AUTOMATED 08/28/2024 11:44 PM CDT [facility] SEG NEUTROPHILS 73.3 % 11:44 PM CDT [facility] LYMPHOCYTES 15.6 % 08/28/2024 11:44 PM CDT [facility] MONOCYTES 8.6 % 08/28/2024 11:44 PM CDT [facility] EOSINOPHILS 1.6 % 08/28/2024 11:44 PM CDT [facility] BASOPHILS 0.2 % 08/28/2024 11:44 PM CDT [facility] IMMATURE GRANS % 0.7 % 08/29/19 11:44 PM CDT [facility] NRBC 0.0 % 08/28/2024 11:44 PM CDT [facility] ABS. NEUTROPHILS 4.09 1.60 - 8.30 x10'3/uL 08/28/2024 11:44 PM CDT [facility] ABS. LYMPHOCYTES 0.87 0.80 - 4.70 x10'3/uL 08/28/2024 11:44 PM T [facility] ABS. MONOCYTES 0.48 0.00 - 1.50 x10'3/uL 08/28/2024 11:44 PM T [facility] ABS. EOSINOPHILS 0.09 0.00 - 0.40 x10'3/uL 08/28/2024 11:44 PM CDT [facility] ABS. BASOPHILS 0.01 0.00 - 0.20 x10'3/uL 08/28/2024 11:44 PM T [facility] ABS. IMMATURE GRANULOCYTES 0.04(H) 0.00 - 0.03 x10'3/uL 08/28/2024 11:44 PM CDT [facility] ABS. NUCLEATED RBC'S 0.00 0.00 - 0.01 x10'3/uL 08/28/2024 11:44 PM CDT [facility] 08/28/2024 11:3 1 PM CDT Radu Loya MD LABORATORY Final Result [facility] [address] [place] [id number], * Critical Care (08/28/2024 11:05 PM CDT) [...] or life-threatening deterioration of the following conditions: LICENSED CERTIFIED ORTHOTIST failure or compromise and respiratory failure Critical [...] 11:20 PM Narrative 08/26/2024 11:21 PM CDT [address] [place], [place] [address] EXAMINATION: Chest X-Ray 2 View EXAM DATE/TIME: [...] Procedure Note David Hart MD - 08/26/[address] [place], [place] [address] EXAMINATION: Chest X-Ray 2 View EXAM DATE/TIME: [...] IA NEGATIVE NEGATIVE 08/26/2024 11:07 PM CDT [facility] Comment: NEGATIVE RESULTS SHOULD BE [...] SPECIMEN TYPE NASAL 08/26/2024 10:40 PM CDT [facility] NASAL NASAL STRUCTURE / Unknown 08/26/2024 10:39 PM CDT Karmen EDMOND MICROBIOLOGY - GENERAL ORDERABLES Final Result Performing Organization Address City/[facility]/ZIP Co de Phone Number [facility] [address] [place] [address], * INFLUENZA A & B (08/26/2024 10:39 PM CDT) SPECIMEN TYPE (INFLUENZA) NASAL 08/26/2024 10:40 PM CDT [facility] INFLUENZA A NEGATIVE NEGATIVE 08/26/2024 11:06 PM CDT [facility] INFLUENZA B NEGATIVE NEGATIVE 08/26/2024 11:06 PM CDT [facility] NASAL STRUCTURE / Unknown 08/26/2024 10:39 PM CDT us Karmen EDMOND MICROBIOLOGY - GENERAL ORDERABLES Final Result [facility] [address] [place] [address], * (ABNORMAL) URINALYSIS (08/26/2024 10:39 PM CDT) Only the most recent of2 resultswithin the time period is included. SPECIMEN TYPE URINE VOIDED 10:40 PM [facility] COLOR (U) YELLOW 08/26/2024 11:02 PM [facility] TRANSPARENCY CLEAR 08/26/2024 11:02 PM [facility] SPECIFIC GRAVITY (U) 1.016 1.002 - 1.035 08/26/2024 11:02 PM [facility] U PH 6.0 5.0 - 9.0 08/26/2024 11:02 PM [facility] LEUKOCYTES (U) NEGATIVE NEGATIVE 08/26/2024 11:02 PM [facility] NITRITES NEGATIVE NEGATIVE 08/26/2024 11:02 PM [facility] PROTEIN RANDOM (U) TRACE(A) NEGATIVE 08/26/2024 11:02 PM [facility] GLUCOSE (U) NORMAL NORMAL 08/26/2024 11:02 PM [facility] KETONES MG/DL (U) NEGATIVE NEGATIVE 08/26/2024 11:02 PM [facility] UROBILINOGEN 2.0(H) 0 - 1 EU/DL 08/26/2024 11:02 PM [facility] BILIRUBIN (U) NEGATIVE NEGATIVE 08/26/2024 11:02 PM [facility] BLOOD (U) NEGATIVE NEGATIVE 08/26/2024 11:02 PM [facility] MUCUS FEW 08/26/2024 11:02 PM [facility] WBC/HPF 0-5 /HPF 08/26/2024 11:02 PM [facility] RBC/HPF 0-5 /HPF 08/26/2024 11:02 PM [facility] SQUAMOUS EPITHELIALS MODERATE 08/26/2024 11:02 PM CDT [facility] URINE SPECIMEN FROM URETHRA / Unknown 08/26/2024 10:39 PM CDT us Karmen EDMOND URINE ORDERABLES Final Result Performing Organization Address City/[facility]/ZIP Co de Phone Number [facility] [address] [place] [address], [place] [phone] * STREP A RAPID (08/26/2024 10:39 PM CDT) SPECIMEN SOURCE THROAT 08/26/2024 10:40 PM CDT [facility] RAPID STREP TEST NEGATIVE NEGATIVE 08/26/2024 11:06 PM CDT [facility] STRUCTURE OF ANTERIOR PORTION OF NECK / Unknown 08/26/2024 10:39 PM CDT us Karmen EDMOND MICROBIOLOGY - GENERAL ORDERABLES Final Result Performing Organization Address [facility] Co de Phone Number [facility] [address] [place] [address], [place] [phone] * MAGNESIUM (08/26/2024 10:39 PM CDT) MAGNESIUM 1.6 1.6 - 2.6 MG/DL 08/26/2024 11:20 PM CDT [facility] Comment:RESULT QUESTIONABLE DUE TO HEMOLYSIS, CONSIDER RECOLLECTION. 08/26/2024 10:3 9 PM CDT us Karmen EDMOND LABORATORY Final R esult Performing Organization Address City/[facility]/ZIP Co de Phone Number [facility] [address] [place] [address], [place] [phone] * (ABNORMAL) BASIC METABOLIC PANEL (08/08/2024 12:07 AM CDT) SODIUM S/P/B 137 136 - 145 MMOL/L 08/08/2024 12:36 AM T [facility] POTASSIUM S/P/B 4.5 3.5 - 5.1 MMOL/L 08/08/2024 12:36 AM T [facility] CHLORIDE S/P/B 111 97 - 115 MMOL/L 08/08/2024 12:36 AM CDT [facility] CO2 19.6(L) 21.0 - 32.0 MMOL/L 08/08/2024 12:36 AM T [facility] GLUCOSE 144(H) 74 - 106 MG/DL 08/08/2024 12:36 AM T [facility] BUN 28(H) 7 - 18 MG/DL 08/08/2024 12:36 AM T [facility] CREATININE S/P/B 2.01(H) 0.55 - 1.02 MG/DL 08/08/2024 12:36 AM T [facility] CALCIUM S/P/B 9.2 8.5 - 10.1 MG/DL 08/08/2024 12:36 AM T [facility] ANION GAP 6.4 2.0 - 10.0 MMOL/L 08/08/2024 12:36 AM T [facility] OSMOLALITY (CALC) 292 MOSM/KG 025 12:36 AM T [facility] Comment:REFERENCE RANGE NOT ESTABLISHED GFR ESTIMATE 31(L) >90 ML/MIN/1. 73 M2 08/08/2024 12:36 AM T [facility] GFR NOTES GFR REFERENCE S: 08/08/2024 12:[address] [facility] Comment: THE ESTIMATED GFR IS CALCULATED [...] MD LABORATORY Final Result Performing Organization Address [facility] Co de Phone Number [facility] [address] [place] [address], [id number] * CULTURE URINE (08/07/2024 11:55 PM CDT) SPEC DESCRIPTION URINE, UNSPECIFIED 08/07/2024 11:55 PM CDT [facility] SPECIAL REQUESTS NO SPECIAL REQUEST 08/07/2024 11:55 PM CDT [facility] CULTURE RESULT NO GROWTH (< OR = 1,000 CFU/ML) 08/09/2024 9:03 AM CDT [facility] URINE SPECIMEN / Unknown 08/07/2024 11:55 PM CDT 08/08/2024 12:15 AM CDT us Danish Menjivar MD MICROBIOLOGY - GENERAL ORDER KAREN Final Result Performing Organization Address [facility]/ZIP Co de Phone Number [facility] [address] [place] [address], [id number] * HUMAN PAPILLOMAVIRUS, HIGH-RISK TYPES (06/20/2022 12:00 PM CDT) SPECIMEN CERVICAL/END OCERVICAL 06/22/2022 8:18 AM CDT [facility] HPV DNA HIGH RISK NEGATIVE NEGATIVE 06/22/2022 7:35 PM CDT [facility] Comment:SEE CYTOLOGY REPORT 06/20/2022 12:0 0 PM CDT us Sekou Scherer MD PATHOLOGY/CYTOLOGY ORDER KAREN Final Result [facility] [address] [place] [address], * Cytopath Cerv/Vag Thin Layer (06/20/2022 7:46 AM CDT) THIN PREP PAP [facility] [address] [place] [address] Department of Pathology Pathology Report CERVICAL/VAGINAL PAP SMEAR REPORT Name: MISHA JACKSON Age: 7 1980 (Age: 41) Location: [facility] Sex: F Collected Date: 06/20/2022 Hospital #: [id number] Date Received: 06/22/2022 Date Reported: 06/24/2022 Provider: [...] Cohen (ASCP) CLINICAL HISTORY Z12.4 PAP HISTORY-NILM NEUROLOGY EPILEPSY PHYSICIAN SURGICAL HISTORY-HPV+ 05/17/16 LASER/CRYOTHERAPY ThinPrep Pap Test [...] is not effective in detecting cervical adenocarcinoma. [facility] 06/20/2022 7:46 AM CDT 06/22/2022 7:46 AM CDT Comment:CERVICAL/ENDOCERVICA L us Sekou Scherer MD PATHOLOGY/CYTOLOGY ORDER KAREN Final Result [facility] [address] [place] [address], from Last 3 Months or Most Recently Relevant to Health Maintenance Insurance [employer] Advance Directives * Full Code (Latest Code Status on File) Date Activated Date Inactivated Comments 02/20/2024 1:27 AM 02/20/2024 11:44 AM * Full Code Date Activated Date Inactivated Comments 06/21/2017 12:22 AM 06/21/2017 8:16 PM Care Teams Rubber Mill Operator Relationship Specialty Start Date End Date Lyly Fiore NP [address] [place] [address] PCP - General NURSE PRACTITIONER 04/14/24
--- OUTSIDE RECORDS SUMMARY | 2024-10-08 14:13 | XMS_ITS | Encounter Summary ---
Author Organization [facility] Healthcare Address [address] [place] [address] Care Team Providers Care Diffuser Operator Name Role Phone Beatriz Lee MD Unavailable [phone] Lyly Fiore NET APPLICATIONS DEVELOPER Primary Care Provider Taylor Kitchen RN Unavailable Unav ailable Reason for Visit * Reason Onset Date Comments PMC Preprocedure 09/19/2024 Encounter Details Date Type Department Care Team (Late st Contact Info) Description 09/19/2024 Telephone [facility] [address] [facility] [address] [place], [place] [id number] Igor Graham MD [address] [place], [place] [id number] PMC Preprocedure Social History Tobacco Use Types Packs/Day Years Used Date Smoking Tobacco: Every Day Cigarettes Smokeless Tobacco: Never Comments:1 cigarette day Alcohol Use Standard Drinks/Week Comments Never 0 (1 standard drink = 0.6 oz pur e alcohol) rare [facility] Utilities Answer Date Recorded In the past 12 months has [employer], gas, oil, or water company threatened to [...] often do you attend chur ch or buddhist services? Never 09/03/2024 Do you belong to any clubs o r organizations such as zoroastrian groups, unions, fraternal or athletic groups, or [...] any time in the past 12 m [facility], were you homeless or living in a assisted (including now)? No 09/03/2024 Personal Safety Answer Date Recorded Have you ever been in or are you currently in a harmful physical or emotional relationship or is someone making you feel afraid or unsafe? 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
--- OUTSIDE RECORDS SUMMARY | 2024-10-08 14:14 | XMS_ITS | Encounter Summary ---
Author Organization [facility] Address [address] [place] [address] Care Team Providers Care Suture Polisher Name Role Phone Ashley ZUNIGA MD, Hermes Perez Primary Care Provid er Lyly Fiore NP Primary Care Provider [phone] Encounter Details Date Type Department Care Team (Late st Contact Info) Description 08/22/2018 Abstract [facility] [address] [place] [id number] Social History Tobacco Use Types Packs/Day Years Used Date Smoking Tobacco: Every Day Cigarettes 0.5 15 Smokeless Tobacco: Never Alcohol Use Standard Drinks/Week Comments No 0 (1 standard drink = 0.6 oz pur e alcohol) Comments No Sex and Gender Information Value Date Recorded Sex Assigned at Female 04/05/2024 4:26 PM DIVERSIONAL THERAPIST Legal Sex Female 9:15 PM DIVERSIONAL THERAPIST Gender Identity Not on file Sexual Orientation Not on file documented as of this encounter Plan of Treatment Not on file documented as of this encounter Visit Diagnoses Not on filedocumented in this encounter Additional Health Concerns Infection Onset Date Last Indicated Resolved Time COVID-19 Rule Out 03/30/2020 03/30/2020 03/30/2020 9:29 PM DIVERSIONAL THERAPIST COVID-19 Rule Out 03/30/2020 03/30/2020 03/31/2020 12:28 PM DIVERSIONAL THERAPIST COVID-19 Rule Out 02/16/2024 02/16/2024 02/16/2024 9:16 PM DIVERSIONAL THERAPIST Rhinovirus 02/16/2024 02/16/2024 02/26/2024 12:3 2 AM DIVERSIONAL THERAPIST COVID-19 Rule Out 08/26/2024 08/26/2024 08/26/2024 11:07 PM CDT Respiratory Rule Out 08/26/2024 08/26/2024 025 11:06 PM CDT documented as of this encounter Care Teams Suture Polisher Relationship Specialty Start Date End Date Hermes Ramirez III, MD [address] [address] PCP - General FAMILY PRACTICE 06/20/17 04/13/24 Lyly Fiore NP [address] [place] [address] PCP - General NURSE PRACTITIONER 04/14/24 documented as of this encounter
--- OUTSIDE RECORDS SUMMARY | 2024-10-08 14:14 | XMS_ITS | Clinical Summary ---
Author Organization [facility] Address [address] [place] [address] Care Team Providers Care Therapeutic Strategy Lead Name Role Phone Beatriz Lee MD Unavailable [phone] Lyly Fiore GRAPHIC ILLUSTRATOR Primary Care Provider Taylor Kitchen RN Unavailable [...] Medications pantoprazole DR (PROTONIX) 40 mg EC tabletIndicatio ns:Treatment of Non-Bleeding Gastric Disorder Take 1 tablet (40 mg total) by mouth 2 (two) times a day 60 tablet 5 Active venlafaxine (EFFEXOR) 37.5 mg tablet Take 0.5 tablets (18.75 mg total) by mouth 2 (two) times a day before breakfast and dinner 30 tablet 5 Active melatonin tablet Take 1 tablet (3 mg total) by mouth nightly Active multivitamin with minerals (Hair,Skin and Nails) tablet Take 1 tablet by mouth daily Active DULoxetine DR (CYMBALTA) 60 mg capsule Take 1 capsule (60 mg total) by mouth daily 5 Active LORazepam (ATIVAN) 0.5 mg tablet Take 1 tablet (0.5 mg total) by mouth as needed 5 Active ARIPiprazole (ABILIFY) 2 mg tablet Take [...] XR) 1 mg tablet extended release 24 hrIndications:i mmunosuppressio n Take 2 tablets (2 mg total) by mouth daily 60 tablet 5 Active azaTHIOprine (IMURAN) 100 mg tablet Take 1 tablet (100 mg total) by mouth daily 30 tablet 5 Active predniSONE (DELTASONE) 5 mg tablet Take 1 tablet (5 mg) by mouth daily 30 tablet 5 10/07/19 25 Active Problems Patient Care Coordination No te Formatting of this note migh t be different from the original. Lab: [facility]. . . Pharmacy: [place], [place] Patient enrolled in [employer] assistance program for Envarsus until 03/2025 -[id number] pharmacy for script Problem Noted Date Diagnosed [...] with baseline creatinine ~2. Previously followed at [facility], but has she has been wanting to transfer care to [facility] but has not been able to schedule an appointment. She follows with [facility]. Per Liver Transplant office visit [...] with baseline creatinine ~2. Previously followed at [facility], but has she has been wanting to transfer care to [facility] but has not been able to schedule an appointment. She follows with [facility]. Per Liver Transplant office visit [...] with baseline creatinine ~2. Previously followed at [facility], but has she has been wanting to transfer care to [facility] but has not been able to schedule an appointment. She follows with [facility]. Per Liver Transplant office visit [...] with baseline creatinine ~2. Previously followed at [facility], but has she has been wanting to transfer care to [facility] but has not been able to schedule an appointment. She follows with [facility]. Per Liver Transplant office visit [...] with baseline creatinine ~2. Previously followed at [facility], but has she has been wanting to transfer care to [facility] but has not been able to schedule an appointment. She follows with [facility]. Per Liver Transplant office visit [...] with baseline creatinine ~2. Previously followed at [facility], but has she has been wanting to transfer care to [facility] but has not been able to schedule an appointment. She follows with [facility]. Per Liver Transplant office visit [...] with baseline creatinine ~2. Previously followed at [facility], but has she has been wanting to transfer care to [facility] but has not been able to schedule an appointment. She follows with [facility]. Per Liver Transplant office visit [...] with baseline creatinine ~2. Previously followed at [facility], but has she has been wanting to transfer care to [facility] but has not been able to schedule an appointment. She follows with [facility]. Per Liver Transplant office visit [...] with baseline creatinine ~2. Previously followed at [facility], but has she has been wanting to transfer care to [facility] but has not been able to schedule an appointment. She follows with [facility]. Per Liver Transplant office visit [...] with baseline creatinine ~2. Previously followed at [facility], but has she has been wanting to transfer care to [facility] but has not been able to schedule an appointment. She follows with [facility]. Per Liver Transplant office visit [...] with baseline creatinine ~2. Previously followed at [facility], but has she has been wanting to transfer care to [facility] but has not been able to schedule an appointment. She follows with [facility]. Per Liver Transplant office visit [...] we would not be able to prescribe [facility] opioids on discharge. Discussed importance of outpatient [...] we would not be able to prescribe color shop helper opioids on discharge. Discussed importance of outpatient [...] we would not be able to prescribe color shop helper opioids on discharge. Discussed importance of outpatient [...] we would not be able to prescribe color shop helper opioids on discharge. Discussed importance of outpatient [...] we would not be able to prescribe color shop helper opioids on discharge. Discussed importance of outpatient [...] we would not be able to prescribe [facility] opioids on discharge. Discussed importance of outpatient [...] we would not be able to prescribe color shop helper opioids on discharge. Discussed importance of outpatient [...] we would not be able to prescribe color shop helper opioids on discharge. Discussed importance of outpatient [...] we would not be able to prescribe color shop helper opioids on discharge. Discussed importance of outpatient [...] we would not be able to prescribe color shop helper opioids on discharge. Discussed importance of outpatient [...] we would not be able to prescribe [facility] opioids on discharge. Discussed importance of outpatient [...] we would not be able to prescribe color shop helper opioids on discharge. Discussed importance of outpatient [...] initiation of buprenorphine. - Pain Management consulted 3/20. - Has OSH pain management appointment on [...] with baseline creatinine ~2. Previously followed at [facility], but has she has been wanting to transfer care to [facility] but has not been able to schedule an appointment. She follows with [facility]. Per Liver Transplant office visit [...] with baseline creatinine ~2. Previously followed at [facility], but has she has been wanting to transfer care to [facility] but has not been able to schedule an appointment. She follows with [facility]. Per Liver Transplant office visit [...] with baseline creatinine ~2. Previously followed at [facility], but has she has been wanting to transfer care to [facility] but has not been able to schedule an appointment. She follows with [facility]. Per Liver Transplant office visit [...] with baseline creatinine ~2. Previously followed at [facility], but has she has been wanting to transfer care to [facility] but has not been able to schedule an appointment. She follows with [facility]. Per Liver Transplant office visit [...] with baseline creatinine ~2. Previously followed at [facility], but has she has been wanting to transfer care to [facility] but has not been able to schedule an appointment. She follows with [facility]. Per Liver Transplant office visit [...] with baseline creatinine ~2. Previously followed at [facility], but has she has been wanting to transfer care to [facility] but has not been able to schedule an appointment. She follows with [facility]. Per Liver Transplant office visit [...] Transplant starting process of assuming care from [facility], but in short term they recommend patient follow up with renal transplant at [facility]. - She is NOW actively enrolled in the [employer] free patient assistance program through mar 2025 - script needs to be sent to [facility] (sent). Hyperbilirubinemia 04/16/2020 Assessment & Plan (04/16/2020 5:01 AM PURCHASING CONTRACTING CLERK): - T. Bili of 7 (last [...] 07/25/2019 Assessment & Plan (04/16/2020 2:25 AM PURCHASING CONTRACTING CLERK): See hyperbili problem. Concern for ascites [...] 12/14/2016 Assessment & Plan (04/16/2020 2:26 AM PURCHASING CONTRACTING CLERK): - Chronic, concerned that this may [...] kidney transplant 04/2020. 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 We would need to call [facility] to identify a contracted center ([phone]). She lives close enough to [place] that would be the most likely city she could travel to. She also noted that she could always remarry an ex- as he has insurance that may be covered at [facility]/. Appreciate note from nephrology and agree with restarting oral diuretics. Can continue tacrolimus at the current dose. MRI/MRCP completed and will review with radiology to identify if any role for PTC. 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 Poor follow up with Dr. Vazquez. Poor compliance with tacro - check tacro trough in AM. Resume tacro 1mg bid Assessment & Plan (07/25/2019 6:27 AM CDT): History of liver transplant in 1992 2/ biliary atresia. Was following with liver, last [...] meds Assessment & Plan (04/16/2020 5:01 AM PURCHASING CONTRACTING CLERK): Unclear if progression of CKD vs [...] Cr of 1.8. She follows with local wireless network engineer Dr. Mathew and thinks her baseline is 2.1. She was at 2.3 at OSH. She took some diuretics at home and was given lasix at OSH ED. --UA, urine lytes --get records from her wireless network engineer to find out baseline --random tacro level --monitor Is & Os; avoid nephrotoxins Encounters Date Type Department Care Team Description 09/26/2024 Telephone [facility] at the [facility] Advanced Medicine [address] [place] [address] Advanced Medicine [address] [place] [address] Igor Graham MD Post-Op Call 09/25/2024 8:48 AM CDT - 09/25/2024 11:59 PM CDT Hospital Encounter [facility] at the [facility] Medicine [address] [place] [address] Advanced Medicine [address] [place] [address] Igor Graham MD Lumbar disc disease with radiculopathy (Primary Dx); Lumbar spondylosis Discharge Disposition: Discharge to home or self care 09/19/2024 Telephone [facility] at the [facility] Medicine [address] [place] [address] Advanced Medicine [address] [place] [address] Igor Graham MD [facility] Preprocedure 09/09/2024 SHOP/CHAP Initial Eligibility Review [facility]NAGEMENT [address] [place] [address] Shireen Griffin RN 08/31/2024 11:48 PM CDT - 09/06/2024 4:45 PM CDT Hospital Encounter [facility] [address] [place] [address] Elisha Avila MD Freilich, Michelle Amanda, MD Girardi, Margo Renee, MD Abdominal pain (Primary Dx); Liver transplant failure and rejection (HCC); Rhinovirus infection Discharge Disposition: Discharge to home or self care 08/27/2024 Telephone [facility] [address] [facility] Advanced Medicine [address] [place] [address] Igor Graham MD Pre Procedure 08/15/2024 10:30 AM CDT Clinical Support [place] [id number] [facility] Advanced [facility] 1st [place] [address] Brielle Carrillo, PhD 08/15/2024 Results [facility] Trans[facility] Liver [address] [facility] [address] Mailstop [phone] [place] [address] Taylor Kitchen RN Surgical pathology 08/14/2024 12:21 PM CDT - 08/14/2024 11:59 PM CDT Hospital Encounter [facility] [place] [facility] [address] [facility] Advanced Medicine [address] [place] [address] Igor Graham MD Lumbar spondylosis (Primary Dx); Lumbar disc disease with radiculopathy Discharge Disposition: Discharge to home or self care 08/02/2024 Orders Only [facility] [address] [place] [address] Beatriz Lee MD History of liver transplant (HCC); History of kidney transplant 08/01/2024 Telephone [facility] Transplant Liver [address] [facility] [address] Mailstop [phone] [place] [address] Misty Vail RN 07/29/2024 Telephone [facility] Trans[facility] Liver [address] [facility] [address] Mail[address] [phone] [place] [address] Lorena Turner 07/26/2024 2:55 PM CDT - 07/26/2024 2:56 PM CDT Emergency [facility] [address] [place] [address] Discharge Disposition: Left without being seen 07/24/2024 10:00 AM CDT Office Visit [facility] Orthopaedic Surgery [address] [facility] for Advanced Medicine 6th [place] [address] [place] [address] Jessee Morton MD Lumbar spine pain (Primary Dx); Adolescent idiopathic scoliosis of thoracic region; Chronic bilateral low back pain without sciatica 07/24/2024 9:45 AM CDT - 07/24/2024 11:59 PM CDT Hospital Encounter [facility] ([facility]) [address] [place] [address] Jessee Morton MD Lumbar spine pain; Adolescent idiopathic scoliosis of thoracic region Discharge Disposition: Discharge to home or self care 07/24/2024 Telephone [facility] and [facility] Transplant Liver [address] [facility] [address] Mailstop -27-4 [place] [address] Lorena Turner 07/22/2024 Telephone [facility] and [facility] Transplant Liver [address] [facility] [address] Mailstop [phone] [place] [address] Dafne Dukes RN 07/19/2024 Telephone [facility] and [facility] Transplant Liver [address] [facility] [address] Mailstop [phone] [place] [address] Karmen Garsia RN After Hours; Abdominal Pain 07/17/2024 Telephone [facility] Transplant Liver [address] [facility] [address] Mailstop [phone] [place] [address] Lorena Turner 07/12/2024 5:48 PM CDT - 07/12/2024 11:59 PM CDT Hospital Encounter [facility] ([facility]) [address] [place] [address] Discharge Disposition: Discharge to home or self care 07/12/2024 5:46 PM CDT - 07/12/2024 11:59 PM CDT Hospital Encounter [facility] ([facility]) [address] [place] [address] Discharge Disposition: Discharge to home or self care 07/12/2024 5:44 PM CDT - 07/12/2024 11:59 PM CDT Hospital Encounter [facility] ([facility]) [address] [place] [address] Discharge Disposition: Discharge to home or self care 07/12/2024 5:43 PM CDT - 07/12/2024 11:59 PM CDT Hospital Encounter [facility] [address] [place] [address] Discharge Disposition: Discharge to home or self care 07/12/2024 Telephone [facility] Nephrology [address] [place] [address] for Advanced Medicine 5th [place] [address] [place] [address] Wilson Swift MD 07/11/2024 Telephone [facility] and [facility] Transplant Liver [address] [facility] [address] Mailstop -[address] [place] [address] Dafne Dukes RN 07/11/2024 Telephone [facility] and [facility] Transplant Liver [address] [facility] [address] Mailstop [address] [place] [address] Yulisa Welch 07/10/2024 Telephone [facility] and [facility] Transplant Liver [address] [facility] [address] Mailstop [address] [place] [address] Liyah Kamara 07/09/2024 8:48 AM CDT - 07/09/2024 11:59 PM CDT Hospital Encounter [facility] ([facility] [address] [place] [address] Discharge Disposition: Discharge to home or self care 07/09/2024 8:46 AM CDT - 07/09/2024 11:59 PM CDT Hospital Encounter [facility] ([facility] [address] [place] [address] Discharge Disposition: Discharge to home or self care 07/09/2024 8:44 AM CDT - 07/09/2024 11:59 PM CDT Hospital Encounter [facility] ([facility]) [facility] [place] [address] Discharge Disposition: Discharge to home or self care 07/09/2024 Telephone [facility] Transplant Liver [address] [facility] [address] Mailstop [phone] [place] [address] Dafne Dukes RN 07/09/2024 Telephone [facility] Transplant Liver [address] [facility] [address] Mailstop [phone] [place] [address] Yulisa Welch from Last 3 Months Surgical History Surgery Date Site/Laterality Comments WI COLONOSCOPY FLX DX W/ROMAIN J SPEC WHEN [...] = 0.6 oz pur e alcohol) rare [facility] Utilities Answer Date Recorded In the past 12 months has e [employer], gas, oil, or water company threatened to [...] often do you attend chur ch or mandaen services? Never 09/03/2024 Do you belong to any clubs o r organizations such as jain groups, unions, fraternal or athletic groups, or [...] any time in the past 12 m [facility], were you homeless or living [...] on file Legal Sex Female 10:10 PM PURCHASING CONTRACTING CLERK Gender Identity Not on file Sexual [...] CDT HEPATITIS PANEL, ACUTE Routine 6:35 AM PURCHASING CONTRACTING CLERK from Last 3 Months or Most Recently Relevant to Health Maintenance Results * Imaging Lumbar/Sacral Facet Medial Branch Block Bilateral (86745) (09/25/2024 9:47 AM CDT) Narrative RAD_PACS_[facility] - 09/25/2024 9:47 AM CDT The images from this study are not interpreted by Radiology. Please refer to the physician's procedure / OR operative note. us Igor Graham MD IMG PAIN MGMT PROCEDURE S Final Result Performing Organization Address City/[facility]/ZIP Co de Phone Number [email or web address] * (ABNORMAL) eGFR (09/06/2024 9:48 AM [...] ORDERABLES Aniya l Result Performing Organization Address City/[facility]/ZIP Co de Phone Number [facility] Department [place] [address] * Tacrolimus level trough (09/06/2024 9:48 AM CDT) Tacrolimus trough 6.4 ng/mL Comment: Interpretive Data Testing performed by liquid chromatography-tandem mass spectrometry. Therapeutic concentrations vary depending on type of transplanted organ and time elapsed since transplant. Typical trough concentrations range from 5-15 ng/mL. This test was developed and its performance characteristics determined by the [facility] Laboratory consistent with CLIA requirements. This test has not been cleared or approved by the [place] Food and Drug administration. Current interpretive data last reviewed 2019. Blood 09/06/2024 9:48 AM CDT 09/06/2024 10:15 AM CDT Lily Rico MD LAB BLOOD ORDERABLES Final Result [facility] Department [place] [address] * (ABNORMAL) Comprehensive metabolic panel (09/06/2024 9:48 AM CDT) Sodium 139 135 - 145 mmol/L Potassium, pl 4.1 3.3 - 4.9 mmol/L [facility] Comment:Hemolyzed; Potassium value may be falsely elevated by as much as 0.3-0.5 mmol/L. Suggest redraw and reanalysis. Chloride 102 97 - 110 mmol/L [facility] CO2 26 22 - 32 mmol/L [facility] Anion gap 11 2 - 15 mmol/L [facility] BUN 24 6 - 25 mg/dL [facility] Creatinine 2.04(H) 0.60 - 1.10 mg/dL [facility] Glucose 167 70 - 199 mg/dL [facility] Comment: Interpretive Data Fasting glucose >/= 126 [...] 2022. Calcium 8.8 8.5 - 10.3 mg/dL [facility] Bilirubin, total 0.6 0.1 - 1.2 mg/dL [facility] Protein, pl 6.1(L) 6.5 - 8.5 g/dL [facility] Albumin 3.5 3.5 - 5.0 g/dL [facility] Alk phos 241(H) 40 - 130 Units/L [facility] ALT 17 7 - 45 Units/L [facility] AST 41 10 - 45 Units/L [facility] Comment:Hemolyzed; result ma y be falsely elevated Blood 09/06/2024 9:48 AM CDT 09/06/2024 10:15 AM CDT us Britta Zhang MD LAB BLOOD ORDERABLES Aniya l Result [facility] Department [place] [address] * (ABNORMAL) eGFR (09/05/2024 10:47 AM CDT) [...] MD LAB BLOOD ORDERABLES Aniya andrez Result [facility] Department [place] [address] * Differential, auto (09/05/2024 10:47 AM CDT) Neutrophil abs 3.84 1.50 - 6.50 K/cumm Imm gran abs 0.03 0.00 - 0.10 K/cumm [facility] Lymphocyte abs 1.33 0.80 - 3.30 K/cumm [facility] Monocyte abs 0.30 0.20 - 0.80 K/cumm [facility] Eosinophil abs 0.15 0.00 - 0.50 K/cumm [facility] Basophil abs 0.01 0.00 - 0.10 K/cumm [facility] Neutrophil pct 67.8 % [facility] Comment: Interpretive Data Percent cell count reference ranges are not reported, since discordance with absolute values may lead to misinterpretation of CBC data. Current Interpretive Data was last revised on 2017. Imm gran pct 0.5 % [facility] Comment: Interpretive Data Percent cell count reference ranges are not reported, since discordance with absolute values may lead to misinterpretation of CBC data. Current Interpretive Data was last revised on 2017. Lymphocyte pct 23.5 % [facility] Comment: Interpretive Data Percent cell count reference ranges are not reported, since discordance with absolute values may lead to misinterpretation of CBC data. Current Interpretive Data was last revised on 2017. Monocyte pct 5.3 % [facility] Comment: Interpretive Data Percent cell count reference ranges are not reported, since discordance with absolute values may lead to misinterpretation of CBC data. Current Interpretive Data was last revised on 2017. Eosinophil pct 2.7 % [facility] Comment: Interpretive Data Percent cell count reference ranges are not reported, since discordance with absolute values may lead to misinterpretation of CBC data. Current Interpretive Data was last revised on 2017. Basophil pct 0.2 % [facility] Comment: Interpretive Data Percent cell count reference ranges are not reported, since discordance with absolute values may lead to misinterpretation of CBC data. Current Interpretive Data was last revised on 2017. Blood 09/05/2024 10:4 7 AM CDT 09/05/2024 11:03 AM CDT Britta Zhang MD LAB BLOOD ORDERABLES Aniya l Result Performing Organization Address [facility] Co de Phone Number [facility] [place] [address] * Tacrolimus level trough (09/05/2024 10:47 AM CDT) Pathologist [facility] Tacrolimus trough 6.2 ng/mL Comment: Interpretive Data Testing performed by liquid chromatography-tandem mass spectrometry. Therapeutic concentrations vary depending on type of transplanted organ and time elapsed since transplant. Typical trough concentrations range from 5-15 ng/mL. This test was developed and its performance characteristics determined by the [facility] consistent with CLIA requirements. This test has not been cleared or approved by the US Food and Drug administration. Current interpretive data last reviewed 2019. Blood 09/05/2024 10:4 7 AM CDT 09/05/2024 11:04 AM CDT Narrative [facility] - 09/05/2024 1:14 PM CDT Draw exactly 12 HOURS after last dose of tacrolimus was given and just BEFORE giving next dose Britta Zhang MD LAB BLOOD ORDERABLES Aniya l Result Performing Organization Address [facility] Co de Phone Number [facility] Department [place] [address] * (ABNORMAL) CBC with auto differential (09/05/2024 10:47 AM CDT) [facility] WBC 5.66 3.80 - 9.90 K/cumm Hgb 11.1(L) 11.9 - 15.5 g/dL [facility] Hct 31.6(L) 35.6 - 45.5 % [facility] Plt 115(L) 150 - 400 K/cumm [facility] MPV 11.4 9.1 - 12.3 fL [facility] RBC 2.81(L) 3.90 - 5.20 M/cumm [facility] MCV 112.5(H) 81.3 - 96.4 fL [facility] MCH 39.5(H) 27.1 - 33.3 pg [facility] MCHC 35.1 32.3 - 35.7 g/dL [facility] RDW CV 14.2 11.1 - 14.9 % [facility] RDW SD 59.0(H) 35.7 - 48.1 fL [facility] NRBC abs 0.00 0.00 - 0.01 K/cumm [facility] Blood 09/05/2024 10:4 7 AM CDT 09/05/2024 11:03 AM CDT Britta Zhang MD LAB BLOOD ORDERABLES Aniya l Result [facility] [place] [address] * (ABNORMAL) Comprehensive metabolic panel (09/05/2024 10:47 AM CDT) Sodium 143 135 - 145 mmol/L Potassium, pl 4.2 3.3 - 4.9 mmol/L [facility] Chloride 102 97 - 110 mmol/L [facility] CO2 28 22 - 32 mmol/L [facility] Anion gap 13 2 - 15 mmol/L [facility] BUN 28(H) 6 - 25 mg/dL [facility] Creatinine 2.49(H) 0.60 - 1.10 mg/dL [facility] Glucose 127 70 - 199 mg/dL [facility] Comment: Interpretive Data Fasting glucose >/= 126 [...] Calcium 9.0 8.5 - 10.3 mg/dL [facility] Bilirubin, total 0.7 0.1 - 1.2 mg/dL [facility] Protein, pl 6.4(L) 6.5 - 8.5 g/dL [facility] Albumin 3.7 3.5 - 5.0 g/dL [facility] Alk phos 257(H) 40 - 130 Units/L [facility] ALT 18 7 - 45 Units/L [facility] AST 27 10 - 45 Units/L [facility] Blood 09/05/2024 10:4 7 AM CDT 09/05/2024 11:03 AM CDT Britta Zhang MD LAB BLOOD ORDERABLES Aniya l Result [facility] Department [place] [address] * (ABNORMAL) eGFR (09/04/2024 5:03 AM CDT) [...] MD LAB BLOOD ORDERABLES Aniya andrez Result [facility] [place] [address] * Differential, auto (09/04/2024 5:03 AM CDT) Neutrophil abs 2.68 1.50 - 6.50 K/cumm Imm gran abs 0.01 0.00 - 0.10 K/cumm [facility] Lymphocyte abs 1.03 0.80 - 3.30 K/cumm [facility] Monocyte abs 0.23 0.20 - 0.80 K/cumm [facility] Eosinophil abs 0.09 0.00 - 0.50 K/cumm [facility] Basophil abs 0.00 0.00 - 0.10 K/cumm [facility] Neutrophil pct 66.4 % [facility] Comment: Interpretive Data Percent cell count reference ranges are not reported, since discordance with absolute values may lead to misinterpretation of CBC data. Current Interpretive Data was last revised on 2017. Imm gran pct 0.2 % [facility] Comment: Interpretive Data Percent cell count reference ranges are not reported, since discordance with absolute values may lead to misinterpretation of CBC data. Current Interpretive Data was last revised on 2017. Lymphocyte pct 25.5 % [facility] Comment: Interpretive Data Percent cell count reference ranges are not reported, since discordance with absolute values may lead to misinterpretation of CBC data. Current Interpretive Data was last revised on 2017. Monocyte pct 5.7 % [facility] Comment: Interpretive Data Percent cell count reference ranges are not reported, since discordance with absolute values may lead to misinterpretation of CBC data. Current Interpretive Data was last revised on 2017. Eosinophil pct 2.2 % [facility] Comment: Interpretive Data Percent cell count reference ranges are not reported, since discordance with absolute values may lead to misinterpretation of CBC data. Current Interpretive Data was last revised on 2017. Basophil pct 0.0 % [facility] Comment: Interpretive Data Percent cell count reference ranges are not reported, since discordance with absolute values may lead to misinterpretation of CBC data. Current Interpretive Data was last revised on 2017. Blood 09/04/2024 5:03 AM CDT 09/04/2024 5:10 AM CDT Britta Zhang MD LAB BLOOD ORDERABLES Aniya l Result [facility] [place] [address] * Tacrolimus level trough (09/04/2024 5:03 AM CDT) Tacrolimus trough 10.9 ng/mL Comment: Interpretive Data Testing performed by liquid chromatography-tandem mass spectrometry. Therapeutic concentrations vary depending on type of transplanted organ and time elapsed since transplant. Typical trough concentrations range from 5-15 ng/mL. This test was developed and its performance characteristics determined by the [facility] consistent with CLIA requirements. This test has not been cleared or approved by the US Food and Drug administration. Current interpretive data last reviewed 2019. Blood 09/04/2024 5:03 AM CDT 09/04/2024 5:10 AM CDT Narrative [facility] - 09/04/2024 7:32 AM CDT Draw exactly 12 HOURS after last dose of tacrolimus was given and just BEFORE giving next dose Britta Zhang MD LAB BLOOD ORDERABLES Aniya l Result [facility] Department [place] [address] * (ABNORMAL) CBC with auto differential (09/04/2024 5:03 AM CDT) WBC 4.04 3.80 - 9.90 K/cumm Hgb 11.8(L) 11.9 - 15.5 g/dL [facility] Hct 32.9(L) 35.6 - 45.5 % [facility] Plt 66(L) 150 - 400 K/cumm [facility] MPV 12.0 9.1 - 12.3 fL [facility] RBC 2.96(L) 3.90 - 5.20 M/cumm [facility] MCV 111.1(H) 81.3 - 96.4 fL [facility] MCH 39.9(H) 27.1 - 33.3 pg [facility] MCHC 35.9(H) 32.3 - 35.7 g/dL [facility] RDW CV 14.0 11.1 - 14.9 % [facility] RDW SD 56.5(H) 35.7 - 48.1 fL [facility] NRBC abs 0.00 0.00 - 0.01 K/cumm [facility] Blood 09/04/2024 5:03 AM CDT 09/04/2024 5:10 AM CDT us Britta Zhang MD LAB BLOOD ORDERABLES Aniya maguire Result [facility] Department [place] [address] * (ABNORMAL) Comprehensive metabolic panel (09/04/2024 5:03 AM CDT) Sodium 137 135 - 145 mmol/L Potassium, pl 4.2 3.3 - 4.9 mmol/L [facility] Chloride 100 97 - 110 mmol/L [facility] CO2 26 22 - 32 mmol/L [facility] Anion gap 11 2 - 15 mmol/L [facility] BUN 30(H) 6 - 25 mg/dL [facility] Creatinine 2.87(H) 0.60 - 1.10 mg/dL [facility] Glucose 153 70 - 199 mg/dL [facility] Comment: Interpretive Data Fasting glucose >/= 126 [...] Calcium 8.5 8.5 - 10.3 mg/dL [facility] Bilirubin, total 0.8 0.1 - 1.2 mg/dL [facility] Protein, pl 6.6 6.5 - 8.5 g/dL [facility] Albumin 3.5 3.5 - 5.0 g/dL [facility] Alk phos 240(H) 40 - 130 Units/L [facility] ALT 12 7 - 45 Units/L [facility] AST 31 10 - 45 Units/L [facility] Blood 09/04/2024 5:03 AM CDT 09/04/2024 5:10 AM CDT us Britta Zhang MD LAB BLOOD ORDERABLES Aniya maguire Result [facility] Department [place] [address] * (ABNORMAL) eGFR (09/03/2024 5:21 AM CDT) [...] MD LAB BLOOD ORDERABLES Aniya andrez Result [facility] [place] [address] * Differential, auto (09/03/2024 5:21 AM CDT) Neutrophil abs 3.79 1.50 - 6.50 K/cumm Imm gran abs 0.03 0.00 - 0.10 K/cumm [facility] Lymphocyte abs 0.84 0.80 - 3.30 K/cumm [facility] Monocyte abs 0.25 0.20 - 0.80 K/cumm [facility] Eosinophil abs 0.05 0.00 - 0.50 K/cumm [facility] Basophil abs 0.00 0.00 - 0.10 K/cumm [facility] Neutrophil pct 76.5 % [facility] Comment: Interpretive Data Percent cell count reference ranges are not reported, since discordance with absolute values may lead to misinterpretation of CBC data. Current Interpretive Data was last revised on 2017. Imm gran pct 0.6 % [facility] Comment: Interpretive Data Percent cell count reference ranges are not reported, since discordance with absolute values may lead to misinterpretation of CBC data. Current Interpretive Data was last revised on 2017. Lymphocyte pct 16.9 % [facility] Comment: Interpretive Data Percent cell count reference ranges are not reported, since discordance with absolute values may lead to misinterpretation of CBC data. Current Interpretive Data was last revised on 2017. Monocyte pct 5.0 % [facility] Comment: Interpretive Data Percent cell count reference ranges are not reported, since discordance with absolute values may lead to misinterpretation of CBC data. Current Interpretive Data was last revised on 2017. Eosinophil pct 1.0 % [facility] Comment: Interpretive Data Percent cell count reference ranges are not reported, since discordance with absolute values may lead to misinterpretation of CBC data. Current Interpretive Data was last revised on 2017. Basophil pct 0.0 % [facility] Comment: Interpretive Data Percent cell count reference ranges are not reported, since discordance with absolute values may lead to misinterpretation of CBC data. Current Interpretive Data was last revised on 2017. Blood 09/03/2024 5:21 AM CDT 09/03/2024 5:31 AM CDT Britta Zhang MD LAB BLOOD ORDERABLES Aniya l Result Performing Organization Address [facility] Co de Phone Number [facility] Department [place] [address] * Tacrolimus level trough (09/03/2024 5:21 AM CDT) Tacrolimus trough 17.8 ng/mL Comment: Interpretive Data Testing performed by liquid chromatography-tandem mass spectrometry. Therapeutic concentrations vary depending on type of transplanted organ and time elapsed since transplant. Typical trough concentrations range from 5-15 ng/mL. This test was developed and its performance characteristics determined by the [facility] consistent with CLIA requirements. This test has not been cleared or approved by the US Food and Drug administration. Current interpretive data last reviewed 2019. Blood 09/03/2024 5:21 AM CDT 09/03/2024 5:31 AM CDT Narrative [facility] - 09/03/2024 9:19 AM CDT Draw exactly 12 HOURS after last dose of tacrolimus was given and just BEFORE giving next dose Britta Zhang MD LAB BLOOD ORDERABLES Aniya l Result Performing Organization Address [facility] Co de Phone Number [facility] Department [place] [address] * (ABNORMAL) CBC with auto differential (09/03/2024 5:21 AM CDT) [facility] WBC 4.96 3.80 - 9.90 K/cumm Hgb 11.3(L) 11.9 - 15.5 g/dL [facility] Hct 30.7(L) 35.6 - 45.5 % [facility] Plt 83(L) 150 - 400 K/cumm [facility] MPV 11.0 9.1 - 12.3 fL [facility] RBC 2.84(L) 3.90 - 5.20 M/cumm [facility] MCV 108.1(H) 81.3 - 96.4 fL [facility] MCH 39.8(H) 27.1 - 33.3 pg [facility] MCHC 36.8(H) 32.3 - 35.7 g/dL [facility] RDW CV 13.9 11.1 - 14.9 % [facility] RDW SD 54.4(H) 35.7 - 48.1 fL [facility] NRBC abs 0.00 0.00 - 0.01 K/cumm [facility] Blood 09/03/2024 5:21 AM CDT 09/03/2024 5:31 AM CDT us Britta Zhang MD LAB BLOOD ORDERABLES Aniya maguire Result [facility] Department [place] [address] * (ABNORMAL) Comprehensive metabolic panel (09/03/2024 5:21 AM CDT) [facility] Sodium 138 135 - 145 mmol/L Potassium, pl 4.7 3.3 - 4.9 mmol/L [facility] Chloride 101 97 - 110 mmol/L [facility] CO2 29 22 - 32 mmol/L [facility] Anion gap 8 2 - 15 mmol/L [facility] BUN 29(H) 6 - 25 mg/dL [facility] Creatinine 2.92(H) 0.60 - 1.10 mg/dL [facility] Glucose 113 70 - 199 mg/dL [facility] Comment: Interpretive Data Fasting glucose >/= 126 [...] 2022. Calcium 9.2 8.5 - 10.3 mg/dL [facility] Bilirubin, total 1.1 0.1 - 1.2 mg/dL [facility] Protein, pl 6.2(L) 6.5 - 8.5 g/dL [facility] Albumin 3.4(L) 3.5 - 5.0 g/dL [facility] Alk phos 233(H) 40 - 130 Units/L [facility] ALT 13 7 - 45 Units/L [facility] AST 22 10 - 45 Units/L [facility] Blood 09/03/2024 5:21 AM CDT 09/03/2024 5:31 AM CDT Britta Zhang MD LAB BLOOD ORDERABLES Aniya l Result [facility] [place] [address] * BK virus PCR quantitative Blood (09/02/2024 12:21 PM CDT) [facility] BKV DNA result, pl Not Detected [facility] Comment: The quantifiable range of this assay is 21.5 IU/mL to 100,000,000 IU/mL (1.33 log IU/mL to 8.00 log IU/mL). Testing was performed by the [employer]OH[employer]Y Test.tv0 BKV Quantatitive Test version 2.0 ([employer] Testing performed at [facility] Current Interpretive Data was last revised on 2021. Blood 09/02/2024 12:2 1 PM CDT 09/02/2024 12:52 PM CDT Britta Zhang MD LAB MICROBIOLOGY - GENERA L ORDERABLES Final Result Performing Organization Address [facility] Co de Phone Number [facility] Department [place] [address] [facility] * HLA Donor Specific Antibody Report (09/02/2024 12:21 PM CDT) Britta Zhang MD LAB BLOOD ORDERABLES Aniya l Result * HLA Antibody Screen - DSA (Class I and Class II) (09/02/2024 12:21 PM CDT) Blood 09/02/2024 12:2 1 PM CDT 09/03/2024 11:27 AM CDT Narrative [facility] - 09/03/2024 11:27 AM CDT Britta Zhang MD LAB BLOOD ORDERABLES Aniya l Result Performing Organization Address [facility] Co de Phone Number [facility] * Collection Task for HLA Antibody Screen (09/02/2024 12:21 PM CDT) HLA Antibody Screen By Single Antigen Received Blood 09/02/2024 12:2 1 PM CDT 09/03/2024 10:59 AM CDT Britta Zhang MD LAB BLOOD ORDERABLES Aniya l Result [facility] Department [place] [address] * Cytomegalovirus (CMV) DNA PCR, quantitative Blood (09/02/2024 12:21 PM CDT) CMV DNA Not Detected [facility] Comment: Interpretive Data: The quantifiable range of this assay is 34 IUnits/mL to 10,000,000 IUnits/mL (1.53 log IUnits/mL to 7.0 log IUnits/mL). Testing was performed by the JOHNNY 6800 CMV Test ([employer] Testing performed at [facility]. Current interpretive data was last revised on 2020. Blood 09/02/2024 12:2 1 PM CDT 09/02/2024 12:52 PM CDT us Britta Zhang MD LAB MICROBIOLOGY - GENERA L ORDERABLES Final Result [facility] Department [place] [address] [facility] * (ABNORMAL) eGFR (09/02/2024 12:21 PM CDT) [facility] eGFR 20(L) >=60 mL/min/1. 73 m2 [...] LAB BLOOD ORDERABLES Aniya l Result [facility] [place] [address] * Blood culture Blood (09/02/2024 12:21 PM CDT) Report Final Report: No growth Blood 09/02/2024 12:2 1 PM CDT 09/02/2024 1:40 PM CDT Narrative [facility] - 09/06/2024 4:00 PM CDT From a [...] performance characteristics have been verified by the [facility]. For questions about this culture, contact the Microbiology Laboratory at [phone]. Interpretive data was last revised on 24. Britta Zhang MD LAB MICROBIOLOGY - GENERA L ORDERABLES Final Result [facility] Department [place] [address] * Blood culture Blood (09/02/2024 12:21 PM CDT) Report Final Report: No growth Blood 09/02/2024 12:2 1 PM CDT 09/02/2024 1:40 PM CDT Narrative [facility] - 09/06/2024 4:00 PM CDT Collection->Peripheral 1. [...] performance characteristics have been verified by the [facility]. For questions about this culture, contact the Microbiology Laboratory at [phone]. Interpretive data was last revised on 24. us Britta Zhang MD LAB MICROBIOLOGY - GENERA L ORDERABLES Final Result [facility] Department [place] [address] * (ABNORMAL) Renal function panel (09/02/2024 12:21 PM CDT) Sodium 137 135 - 145 mmol/L Potassium, pl 3.9 3.3 - 4.9 mmol/L [facility] Chloride 97 97 - 110 mmol/L [facility] CO2 31 22 - 32 mmol/L [facility] Anion gap 9 2 - 15 mmol/L [facility] BUN 28(H) 6 - 25 mg/dL [facility] Creatinine 2.89(H) 0.60 - 1.10 mg/dL [facility] Glucose 162 70 - 199 mg/dL [facility] Comment: Interpretive Data Fasting glucose >/= 126 [...] 2022. Calcium 9.7 8.5 - 10.3 mg/dL [facility] Phosphorus, pl 4.1 2.3 - 4.5 mg/dL [facility] Albumin 3.5 3.5 - 5.0 g/dL [facility] Blood 09/02/2024 12:2 1 PM CDT 09/02/2024 12:42 PM CDT us Britta Zhang MD LAB BLOOD ORDERABLES Aniya l Result [facility] Department [place] [address] * (ABNORMAL) eGFR (09/02/2024 5:16 AM CDT) [...] Inclusion of Race in Diagnosing Kidney Disease, NASIMSN 2020). The CKD-EPI equation should not be used for patients with unstable renal function and has not been validated in children and those over 70. Current interpretive data was last reviewed 2021. Blood 09/02/2024 5:16 AM CDT 09/02/2024 5:32 AM CDT us Bailee Valiente MD LAB BLOOD ORDERABLES Final Result [facility] Department [place] [address] * Differential, auto (09/02/2024 5:16 AM CDT) Neutrophil abs 3.97 1.50 - 6.50 K/cumm Imm gran abs 0.02 0.00 - 0.10 K/cumm [facility] Lymphocyte abs 1.10 0.80 - 3.30 K/cumm [facility] Monocyte abs 0.24 0.20 - 0.80 K/cumm [facility] Eosinophil abs 0.11 0.00 - 0.50 K/cumm [facility] Basophil abs 0.01 0.00 - 0.10 K/cumm [facility] Neutrophil pct 72.8 % [facility] Comment: Interpretive Data Percent cell count reference ranges are not reported, since discordance with absolute values may lead to misinterpretation of CBC data. Current Interpretive Data was last revised on 2017. Imm gran pct 0.4 % [facility] Comment: Interpretive Data Percent cell count reference ranges are not reported, since discordance with absolute values may lead to misinterpretation of CBC data. Current Interpretive Data was last revised on 2017. Lymphocyte pct 20.2 % [facility] Comment: Interpretive Data Percent cell count reference ranges are not reported, since discordance with absolute values may lead to misinterpretation of CBC data. Current Interpretive Data was last revised on 2017. Monocyte pct 4.4 % [facility] Comment: Interpretive Data Percent cell count reference ranges are not reported, since discordance with absolute values may lead to misinterpretation of CBC data. Current Interpretive Data was last revised on 2017. Eosinophil pct 2.0 % [facility] Comment: Interpretive Data Percent cell count reference ranges are not reported, since discordance with absolute values may lead to misinterpretation of CBC data. Current Interpretive Data was last revised on 2017. Basophil pct 0.2 % [facility] Comment: Interpretive Data Percent cell count reference ranges are not reported, since discordance with absolute values may lead to misinterpretation of CBC data. Current Interpretive Data was last revised on 2017. Blood 09/02/2024 5:16 AM CDT 09/02/2024 5:32 AM CDT Bailee Valiente MD LAB BLOOD ORDERABLES Final Result Performing Organization Address [facility] Co de Phone Number [facility] Department [place] [address] * Tacrolimus level trough (09/02/2024 5:16 AM CDT) [facility] Tacrolimus trough 17.0 ng/mL Comment: Interpretive Data Testing performed by liquid chromatography-tandem mass spectrometry. Therapeutic concentrations vary depending on type of transplanted organ and time elapsed since transplant. Typical trough concentrations range from 5-15 ng/mL. This test was developed and its performance characteristics determined by the [facility] consistent with CLIA requirements. This test has not been cleared or approved by the [place] Food and Drug administration. Current interpretive data last reviewed 2019. Blood 09/02/2024 5:16 AM CDT 09/02/2024 5:32 AM CDT us Britta Zhang MD LAB BLOOD ORDERABLES Aniya l Result Performing Organization Address [facility] Co de Phone Number [facility] Department [place] [address] * (ABNORMAL) CBC with auto differential (09/02/2024 5:16 AM CDT) [facility] WBC 5.45 3.80 - 9.90 K/cumm Hgb 11.7(L) 11.9 - 15.5 g/dL [facility] Hct 32.3(L) 35.6 - 45.5 % [facility] Plt 98(L) 150 - 400 K/cumm [facility] MPV 11.4 9.1 - 12.3 fL [facility] RBC 2.95(L) 3.90 - 5.20 M/cumm [facility] MCV 109.5(H) 81.3 - 96.4 fL [facility] MCH 39.7(H) 27.1 - 33.3 pg [facility] MCHC 36.2(H) 32.3 - 35.7 g/dL [facility] RDW CV 13.9 11.1 - 14.9 % [facility] RDW SD 56.6(H) 35.7 - 48.1 fL [facility] NRBC abs 0.00 0.00 - 0.01 K/cumm [facility] Blood 09/02/2024 5:16 AM CDT 09/02/2024 5:32 AM CDT us Bailee Valiente MD LAB BLOOD ORDERABLES Final Result [facility] [place] [address] * (ABNORMAL) Comprehensive metabolic panel (09/02/2024 5:16 AM CDT) [facility] Sodium 137 135 - 145 mmol/L Potassium, pl 4.1 3.3 - 4.9 mmol/L [facility] Chloride 98 97 - 110 mmol/L [facility] CO2 32 22 - 32 mmol/L [facility] Anion gap 7 2 - 15 mmol/L [facility] BUN 29(H) 6 - 25 mg/dL [facility] Creatinine 3.05(H) 0.60 - 1.10 mg/dL [facility] Glucose 185 70 - 199 mg/dL [facility] Comment: Interpretive Data Fasting glucose >/= 126 [...] Calcium 9.0 8.5 - 10.3 mg/dL [facility] Bilirubin, total 1.0 0.1 - 1.2 mg/dL [facility] Protein, pl 6.3(L) 6.5 - 8.5 g/dL [facility] Albumin 3.8 3.5 - 5.0 g/dL [facility] Alk phos 223(H) 40 - 130 Units/L [facility] ALT 11 7 - 45 Units/L [facility] AST 24 10 - 45 Units/L [facility] Blood 09/02/2024 5:16 AM CDT 09/02/2024 5:32 AM CDT Bailee Valiente MD LAB BLOOD ORDERABLES Final Result [facility] [place] [address] * Troponin I high-sensitivity 2-hour (09/01/2024 2:58 AM CDT) Trop I hs 5 <=17 ng/L Comment: Interpretive Data For further hscTnI resources including the diagnostic algorithm and an aid in interpretation, copy and paste this link: [email or web address].[email or web address]/show/[email or web address] Current Interpretive Data last revised 2019. Trop I hs delta 0 ng/L [facility] Trop I hs interp Insignificant [facility] Blood 09/01/2024 2:58 AM CDT 09/01/2024 3:13 AM CDT us Diana Cassidy MD LAB BLOOD ORDERABLES Fi nal Result [facility] [place] [address] * ECG 12-LEAD (09/01/2024 2:53 AM CDT) Narrative [facility] - 09/01/2024 2:53 AM CDT Elisha Avila MD 09/01/2024 3:24 AM ECG 12 lead Date/Time: 09/01/2024 2:53 AM Performed by: Elisha Avila MD Authorized by: Diana Cassidy MD Diana Cassidy MD ECG ORDERABLES Final R esult Performing Organization Address [facility] Co de Phone Number [facility] * XR Chest PA Lateral [...] and read back by: Flower Moser MD ([phone]) on 09/02/2024 03:01:57 by: Radu Helm MT Direct Specimen Exam Stain: Gram Positive Cocci in clusters Time to culture positivity (anaerobic media): 21.4 hours Notification of: Gram Positive Cocci in clusters called to and read back by: Flower Moser MD ([phone]) on 09/02/2024 01:01:22 by: Radu Helm MT [facility] Report Final Report: Staphylococcus epidermidis Single blood culture positive for this microorganism. Isolate is a possible contaminant. If a similar isolate is recovered from a second blood culture collected within 3 days of this culture, both will be evaluated and, if determined to be the same species, antimicrobial susceptibility testing will be performed. (.) [facility] Organism STAPHYLOCOCCUS EPIDERMIDIS [facility] Blood 09/01/2024 2:18 AM CDT 09/01/2024 2:43 AM CDT Narrative [facility] - 09/06/2024 12:48 PM CDT From a [...] performance characteristics have been verified by the [facility]biology Laboratory. For questions about this culture, contact the Microbiology Laboratory at [phone]. Interpretive data was last revised on 24. us Diana Cassidy MD LAB MICROBIOLOGY - GENE RAL ORDERABLES Final Result [facility] [place] [address] * US Renal Transplant W Dopplers (09/01/2024 [...] Soto Mena M.D., Ph.D Diana Cassidy MD [facility] PROCEDURES Final Result * (ABNORMAL) Respiratory pathogen panel Nasopharyngeal (09/01/2024 12:58 AM CDT) Influenza A RNA Not Detected Not Detected Influenza B RNA Not Detected Not Detected [facility] RSV RNA Not Detected Not Detected [facility] COVID-19 RNA Not Detected Not Detected [facility] Coronavirus 229E RNA Not Detected Not Detected [facility] Coronavirus HKU1 RNA Not Detected Not Detected [facility] Coronavirus NL63 RNA Not Detected Not Detected [facility] Coronavirus OC43 RNA Not Detected Not Detected [facility] Adenovirus DNA Not Detected Not Detected [facility] Metapneumovirus RNA Not Detected Not Detected [facility] Rhinovirus/Enterov irus RNA Detected(A) Not Detected [facility] Parainfluenza 1 RNA Not Detected Not Detected [facility] Parainfluenza 2 RNA Not Detected Not Detected [facility] Parainfluenza 3 RNA Not Detected Not Detected [facility] Parainfluenza 4 RNA Not Detected Not Detected [facility] B. pertussis DNA Not Detected Not Detected [facility] B. parapertussis DNA Not Detected Not Detected [facility] C. pneumoniae DNA Not Detected Not Detected [facility] M. pneumoniae DNA Not Detected Not Detected [facility] Nasopharyngeal 09/01/2024 12 :58 AM CDT 09/01/2024 2:52 AM CDT Narrative [facility] - 09/01/2024 3:48 AM CDT Is the Patient experiencing symptoms consistent with COVID?->Yes Surveillance testing for transplant patient?->No Interpretive Data The Quick Key FilmArray Respiratory Panel (RP2.1) assay is a [...] assay has FDA clearance for testing of GRAPHIC ILLUSTRATOR swabs. The performance of additional specimen types has been assessed by the performing laboratory. The performance characteristics of this assay have been determined by [facility] Molecular Infectious Disease Laboratory. Current interpretive data was last revised on 21. Diana Cassidy MD LAB MICROBIOLOGY - [facility] ORDERABLES Final Result [facility] Department [place] [address] * Troponin I high-sensitivity series (baseline, 2hr, [...] LAB BLOOD ORDERABLES Fi nal Result [facility] [place] [address] * Sepsis Lactate w/ Reflex (09/01/2024 12:57 AM CDT) Sepsis Lactate 1.8 0.7 - 2.0 mmol/L Blood 09/01/2024 12:5 7 AM CDT 09/01/2024 1:14 AM CDT Diana Cassidy MD LAB BLOOD ORDERABLES Fi nal Result Performing Organization Address City/[facility] Co de Phone Number [facility] [place] [address] * (ABNORMAL) eGFR (09/01/2024 12:57 AM CDT) [...] 7 AM CDT 09/01/2024 1:20 AM CDT Result [facility] Diana Cassidy MD LAB BLOOD ORDERABLES Fi nal Result [facility] [place] [address] * Differential, auto (09/01/2024 12:57 AM CDT) Neutrophil abs 4.42 1.50 - 6.50 K/cumm Imm gran abs 0.03 0.00 - 0.10 K/cumm [facility] Lymphocyte abs 1.17 0.80 - 3.30 K/cumm [facility] Monocyte abs 0.38 0.20 - 0.80 K/cumm [facility] Eosinophil abs 0.10 0.00 - 0.50 K/cumm [facility] Basophil abs 0.02 0.00 - 0.10 K/cumm [facility] Neutrophil pct 72.3 % [facility] Comment: Interpretive Data Percent cell count reference ranges are not reported, since discordance with absolute values may lead to misinterpretation of CBC data. Current Interpretive Data was last revised on 2017. Imm gran pct 0.5 % [facility] Comment: Interpretive Data Percent cell count reference ranges are not reported, since discordance with absolute values may lead to misinterpretation of CBC data. Current Interpretive Data was last revised on 2017. Lymphocyte pct 19.1 % [facility] Comment: Interpretive Data Percent cell count reference ranges are not reported, since discordance with absolute values may lead to misinterpretation of CBC data. Current Interpretive Data was last revised on 2017. Monocyte pct 6.2 % [facility] Comment: Interpretive Data Percent cell count reference ranges are not reported, since discordance with absolute values may lead to misinterpretation of CBC data. Current Interpretive Data was last revised on 2017. Eosinophil pct 1.6 % [facility] Comment: Interpretive Data Percent cell count reference ranges are not reported, since discordance with absolute values may lead to misinterpretation of CBC data. Current Interpretive Data was last revised on 2017. Basophil pct 0.3 % [facility] Comment: Interpretive Data Percent cell count reference ranges are not reported, since discordance with absolute values may lead to misinterpretation of CBC data. Current Interpretive Data was last revised on 2017. Blood 09/01/2024 12:5 7 AM CDT 09/01/2024 1:20 AM CDT Diana Cassidy MD LAB BLOOD ORDERABLES Fi nal Result Performing Organization Address City/[facility]/ZIP Co de Phone Number [facility] [place] [address] * (ABNORMAL) Urinalysis reflex to microscopic and culture Urine, bladder (09/01/2024 12:57 AM CDT) Color, ur Yellow Yellow Clarity, ur Clear Clear [facility] Specific gravity, ur 1.020 1.003 - 1.030 [facility] pH, urine 5.5 [facility] Comment: Interpretive Data U rine pH is affected by diet, medications, systemic acid-base disturbances, and renal tubular function. pH may affect urinary stone formation. For example, urine pH below 6.0 may help reduce the tendency for calcium phosphate stones and pH greater than 6.0 may reduce the tendency for uric acid stone formation. Source: [facility] Current Interpretive Data was last revised on 2017 Protein, ur ql Trace Negative [facility] Glucose, ur ql Negative Negative [facility] Ketones, ur Trace Negative [facility] Bilirubin, ur Negative Negative [facility] Blood, ur Negative Negative [facility] Urobilinogen, ur 2.0(A) <2.0 mg/dL [facility] Nitrite, ur Negative Negative [facility] Leukocyte esterase, ur Negative Negative [facility] UA reflex comment Reflex conditions for microscopic UA and culture not met. [facility] Urine, bladder 09/01/2024 12 :57 AM CDT 09/01/2024 1:14 AM CDT Diana Cassidy MD LAB MICROBIOLOGY - GENE RAL ORDERABLES Final Result Performing Organization Address City/[facility]/ZIP Co de Phone Number [facility] Department [place] [address] * (ABNORMAL) CBC with auto differential (09/01/2024 12:57 AM CDT) WBC 6.12 3.80 - 9.90 K/cumm Hgb 12.7 11.9 - 15.5 g/dL [facility] Hct 35.2(L) 35.6 - 45.5 % [facility] Plt 115(L) 150 - 400 K/cumm [facility] MPV 11.0 9.1 - 12.3 fL [facility] RBC 3.20(L) 3.90 - 5.20 M/cumm [facility] MCV 110.0(H) 81.3 - 96.4 fL [facility] MCH 39.7(H) 27.1 - 33.3 pg [facility] MCHC 36.1(H) 32.3 - 35.7 g/dL [facility] RDW CV 14.2 11.1 - 14.9 % [facility] RDW SD 57.3(H) 35.7 - 48.1 fL [facility] NRBC abs 0.00 0.00 - 0.01 K/cumm [facility] Blood 09/01/2024 12:5 7 AM CDT 09/01/2024 1:20 AM CDT Diana Cassidy MD LAB BLOOD ORDERABLES Fi nal Result [facility] [place] [address] * Tacrolimus level random (09/01/2024 12:57 AM CDT) Tacrolimus random 23.8 ng/mL Comment: Interpretive Data Testing performed by liquid chromatography-tandem mass spectrometry. Therapeutic concentrations vary depending on type of transplanted organ and time elapsed since transplant. Typical trough concentrations range from 5-15 ng/mL. This test was developed and its performance characteristics determined by the [facility] consistent with CLIA requirements. This test has not been cleared or approved by the US Food and Drug administration. Current interpretive data last reviewed 2019. Blood 09/01/2024 12:5 7 AM CDT 09/01/2024 1:20 AM CDT Diana Cassidy MD LAB BLOOD ORDERABLES Fi nal Result Performing Organization Address [facility]/ZIP Co de Phone Number [facility] Department [place] [address] * Blood culture Blood (09/01/2024 12:57 AM [...] performance characteristics have been verified by the [facility]biology Laboratory. For questions about this culture, contact the Microbiology Laboratory at [phone]. Interpretive data was last revised on 24. Diana Cassidy MD LAB MICROBIOLOGY - GENE RAL ORDERABLES Final Result Performing Organization Address [facility] [place] [address] * Phosphorus (09/01/2024 12:57 AM CDT) [facility] Phosphorus, pl 2.9 2.3 - 4.5 mg/dL Blood 09/01/2024 12:5 7 AM CDT 09/01/2024 1:20 AM CDT Diana Cassidy MD LAB BLOOD ORDERABLES Fi nal Result Performing Organization Address City/[facility]/[place] [address] * Magnesium (09/01/2024 12:57 AM CDT) [facility] Magnesium 1.5 1.4 - 2.5 mg/dL Blood 09/01/2024 12:5 7 AM CDT 09/01/2024 1:20 AM CDT Diana Cassidy MD LAB BLOOD ORDERABLES Fi nal Result Performing Organization Address City/[facility] [place] [address] * Lipase (09/01/2024 12:57 AM CDT) [facility] Lipase 19 10 - 99 Units/L Blood 09/01/2024 12:5 7 AM CDT 09/01/2024 1:20 AM CDT Diana Cassidy MD LAB BLOOD ORDERABLES Fi nal Result Performing Organization Address City/[facility]/[place] [address] * (ABNORMAL) Comprehensive metabolic panel (09/01/2024 12:57 AM CDT) Sodium 138 135 - 145 mmol/L Potassium, pl 4.5 3.3 - 4.9 mmol/L [facility] Comment:Hemolyzed; Potassium value may be falsely elevated by as much as 0.3-0.5 mmol/L. Suggest redraw and reanalysis. Chloride 105 97 - 110 mmol/L [facility] CO2 24 22 - 32 mmol/L [facility] Anion gap 9 2 - 15 mmol/L [facility] BUN 21 6 - 25 mg/dL [facility] Creatinine 2.34(H) 0.60 - 1.10 mg/dL [facility] Glucose 89 70 - 199 mg/dL [facility] Comment: Interpretive Data Fasting glucose >/= 126 [...] 2022. Calcium 8.7 8.5 - 10.3 mg/dL [facility] Bilirubin, total 1.1 0.1 - 1.2 mg/dL [facility] Protein, pl 7.1 6.5 - 8.5 g/dL [facility] Albumin 3.9 3.5 - 5.0 g/dL [facility] Alk phos 257(H) 40 - 130 Units/L [facility] ALT 14 7 - 45 Units/L [facility] AST 37 10 - 45 Units/L [facility] Comment:Hemolyzed; result ma y be falsely elevated Blood 09/01/2024 12:5 7 AM CDT 09/01/2024 1:20 AM CDT us Diana Cassidy MD LAB BLOOD ORDERABLES Fi nal Result [facility] Department [place] [address] * Surgical pathology (08/02/2024 9:18 AM CDT) Tissue (Miscellaneous) 08/02/2024 9:18 AM CDT 08/02/2024 9:18 AM CDT Narrative [facility] - 08/14/2024 2:01 PM CDT EPIC results best viewed via link to PDF [facility] Pathology Consult Service [address], [address], [place] [address] Note to Patients: This report may contain [...] tissue. FINAL Patient Name: MISHA BROWNE Address: [address] [place], [place] [id number] Gender: F : 1980 (Age: 43) [facility] #: [id number] Patient Type: WILL Location: UNKNOWN Taken: 08/02/2024 Received: 08/02/2024 Accessioned: 08/05/2024 Reported: 08/14/2024 Physician(s): Beatriz Lee M.D. [facility] Department of Pathology [address] [facility] Room [address] [place] [address] P: [phone] F: [phone] Diagnosis: Consult material received from [place], [place] (OSC: [id number]; 11/17/2023) A. 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 Course was complicated by biopsy [...] show moderate inflammatory infiltrate. There is patchy [id number] tubulitis. Small arteries and arterioles show mild [...] Received for review are ten slides labeled [id number], and nine slides labeled [id number], accompanied by a corresponding pathology report. The material originates from [facility], [place], [place]. Selected slide(s) may be digitally scanned [...] occasional mononuclear cells Arteriolar hyalinosis (ah): ah1 [id number] PAS-positive hyaline thickening in at least one arteriole Polyomavirus Nephropathy: Negative for Polyomavirus C4d scoring: c4d0 Negative ptcml (PTC multilayering) (requires EM): N/A - EM not performed By this signature, I attest that the above diagnosis is based upon my personal examination of the slides(and/or other material). Esthela Patton M.D. Darrell Cabrera M.D. Any testing required for diagnostic purposes was performed in the Department of Pathology and Immunology at [facility], [address] [place] [address] CLIA # [id number] The performance characteristics of the testing cited in this report (if any) were determined by the [facility] Department of Pathology and Immunology [facility], as part of an ongoing software quality assurance engineer program and in compliance with federally [...] [facility], [facility] [...] only viewable in PDF version of report. Beatriz Lee MD LAB PATHOLOGY ORDERA BLES Final Result [facility] [address] [place] [address] * XR Scoliosis 6 or More Views [...] PROCEDURES Final Re sult Performing Organization Address [facility] de Phone Number [email or web address] [...] PROCEDURES Final Re sult Performing Organization Address [facility] Co de Phone Number [email or web address] * [...] EXAMINATION: Images For Reference Purposes Only Result [facility] Jessee Morton MD IMG MRI PROCEDURES Final R esult Performing Organization Address [facility] de Phone Number [email or web address] [...] EXAMINATION: Images For Reference Purposes Only Result [facility] Jessee Morton MD IMG MRI PROCEDURES Final R esult Performing Organization Address [facility] de Phone Number [email or web address] * XR Outside [...] EXAMINATION: Images For Reference Purposes Only Result [facility] Jessee Morton MD IMG XR PROCEDURES Final Re sult Performing Organization Address [facility] de Phone Number [email or web address] * XR Outside Reference (07/09/2024 8:46 AM CDT) Impressions [email or web address] - 07/09/2024 8:46 AM CDT These images are for Reference purposes only and have not been reviewed by [facility] Radiology. There will be no report generated by a [facility] Radiologist. Narrative [email or web address] - 07/09/2024 8:46 AM CDT EXAMINATION: Images For Reference Purposes Only Jessee Morton MD IMG XR PROCEDURES Final Re sult Performing Organization Address [facility] de Phone Number [email or web address] * XR Outside Reference (07/09/2024 8:44 AM CDT) Impressions [email or web address] - 07/09/2024 8:44 AM CDT These images are for Reference purposes only and have not been reviewed by [facility] Radiology. There will be no report generated by a [facility] Radiologist. Narrative [email or web address] - 07/09/2024 8:44 AM CDT EXAMINATION: Images For Reference Purposes Only Result [facility] Jessee Morton MD IMG XR PROCEDURES Final Re sult Performing Organization Address [facility] de Phone Number [email or web address] * Hepatitis panel, acute (04/16/2020 6:35 AM PURCHASING CONTRACTING CLERK) Hep A IgM Nonreactive Nonreactive [facility] Comment: Interpretive Data: If Hep A IgM Ab is reported as Equivocal, a new sample should be drawn in two weeks for testing. Current interpretive data was last revised on 19. Hep B core IgM Nonreactive Nonreactive [facility] Comment: Interpretive Data If HepB Core IgM Ab is reported as Equivocal, a new sample should be drawn in two weeks for testing. Current interpretive data was last revised on 19. Hep C Ab Nonreactive Nonreactive [facility] Comment:Antibodies to HCV no t detected. Does NOT exclude the possibility of recent exposure to HCV. HepBsAg Nonreactive Nonreactive [facility] Blood specimen (specimen) 04/16/2020 6:35 AM PURCHASING CONTRACTING CLERK 04/16/2020 7:34 AM PURCHASING CONTRACTING CLERK Jacob Gates MD LAB MICROBIOLOGY - GENER AL ORDERABLES Final Result [facility] [place] [address] from Last 3 Months or Most Recently Relevant to Health Maintenance Insurance [employer] OPEN ACCESS [employer] [facility] Advance Directives For more information, please contact: [phone] * Full Code (Latest Code Status on [...] 6:15 AM 07/25/2019 11:51 PM Care Teams Therapeutic Strategy Lead Relationship Specialty Start Date End Date Lyly Fiore NP [address] [place] [address] PCP - General Nurse Practitioner 05/29/24 Beatriz Lee MD [address] [place] [address] Referring Physician Gastroenterology 07/25/19 Taylor Kitchen, want ad supervisorSupervisor Fruit [employer] 05/29/24
--- OUTSIDE RECORDS SUMMARY | 2024-10-08 14:14 | XMS_ITS | Encounter Summary ---
Author Organization [facility] Address [address] [place] [id number] Care Team Providers Care Thermodynamics Engineer Name Role Phone Ashley ZUNIGA MD, Hermes Primary Care Provid er Lyly Fiore NP Primary Care Provider Encounter Details Date Type Department Care Team (Late st Contact Info) Description 08/25/2018 Abstract [facility]FL CONVERSION [address] [place] [address] , Generic Conversion, Social History Tobacco Use Types Packs/Day Years Used Date Smoking Tobacco: Every Day Cigarettes 0.5 15 Smokeless Tobacco: Never Alcohol Use Standard Drinks/Week Comments No 0 (1 standard drink = 0.6 oz pur e alcohol) Comments No Sex and Gender Information Value Date Recorded Sex Assigned at Female 04/05/2024 4:26 PM BLADE [employer]ER Legal Sex Female 9:15 PM BLADE FILER Gender Identity Not on file Sexual Orientation Not on file documented as of this encounter Plan of Treatment Not on file documented as of this encounter Visit Diagnoses Not on filedocumented in this encounter Additional Health Concerns Infection Onset Date Last Indicated Resolved Time COVID-19 Rule Out 03/30/2020 03/30/2020 03/30/2020 9:29 PM BLADE FILER COVID-19 Rule Out 03/30/2020 03/30/2020 03/31/2020 12:28 PM BLADE FILER COVID-19 Rule Out 02/16/2024 02/16/2024 02/16/2024 9:16 PM BLADE FILER Rhinovirus 02/16/2024 02/16/2024 02/26/2024 12:3 2 AM BLADE FILER COVID-19 Rule Out 08/26/2024 08/26/2024 08/26/2024 11:07 PM CDT Respiratory Rule Out 08/26/2024 08/26/2024 025 11:06 PM CDT documented as of this encounter Care Teams Thermodynamics Engineer Relationship Specialty Start Date End Date Hermes Ramirez III, MD [address] [address] PCP - General FAMILY PRACTICE 06/20/17 04/13/24 Lyly Fiore NP [address] [place] [address] PCP - General NURSE PRACTITIONER 04/14/24 documented as of this encounter
--- OUTSIDE RECORDS SUMMARY | 2024-10-08 14:14 | XMS_ITS | Referral Summary ---
Author Organization [facility] Address [address] [place] [address] Care Team Providers Care Fruit Grading Supervisor Name Role Phone Beatriz Lee MD Unavailable +- [phone] Lyly Fiore GEOSPATIAL APPLICATIONS DEVELOPER Primary Care Provider Taylor Kitchen RN Unavailable Unav ailable Encounters Date Type Department Care Team Description 09/26/2024 Telephone [facility] [address] [facility] [address] [place] [address] Igor Graham MD Post-Op Call 09/25/2024 8:48 AM CDT - 09/25/2024 11:59 PM CDT Hospital Encounter [facility] [address] [facility] [address] [place] [address] Igor Graham MD Lumbar disc disease with radiculopathy (Primary Dx); Lumbar spondylosis Discharge Disposition: Discharge to home or self care 09/19/2024 Telephone [facility] [address] [facility] [address] [place] [address] Igor Graham MD [facility] Preprocedure 09/09/2024 SHOP/CHAP Initial Eligibility Review [facility] CASE [facility]NAGEMENT [address] [place] [address] Shireen Griffin RN 08/31/2024 11:48 PM CDT - 09/06/2024 4:45 PM CDT Hospital Encounter [facility] 1 [place] [address] Elisha Avila MD Freilich, MD Vicente Agurire, Britta Alarcon MD Abdominal pain (Primary Dx); Liver transplant failure and rejection (HCC); Rhinovirus infection Discharge Disposition: Discharge to home or self care 08/27/2024 Telephone [facility] [address] [facility] Advanced [facility] [address] [place] [address] Igor Graham MD Pre Procedure 08/15/2024 Results Follow-Up [facility] Transplant Liver [address] [place] [address] [address] [id number] [place] [address] Taylor Kitchen RN Surgical pathology 08/15/2024 10:30 AM CDT Clinical Support [place] [address] [facility] 1st [place] [address] Brielle Carrillo, PhD 08/14/2024 12:21 PM CDT - 08/14/2024 11:59 PM CDT Hospital Encounter [facility] [address] [facility] [address] [place] [address] Igor Graham MD Lumbar spondylosis (Primary Dx); Lumbar disc disease with radiculopathy Discharge Disposition: Discharge to home or self care 08/02/2024 Orders Only [facility] [address] [place] [address] Beatriz Lee MD History of liver transplant (HCC); History of kidney transplant 08/01/2024 Telephone [facility] Transplant Liver [address] [facility] [address] Mailstop [id number] [place] [address] Misty Vail RN 07/29/2024 Telephone [facility] Transplant Liver [address] [facility] [address] Mail[address] [id number] [place] [address] Lorena Turner 07/26/2024 2:55 PM CDT - 07/26/2024 2:56 PM CDT Emergency [facility] Emergency Department [address] [place] [address] Discharge Disposition: Left without being seen 07/24/2024 Telephone [facility] Transplant Liver [address] [place] [address] [address] [address] [place] [address] Lorena Turner 07/24/2024 9:45 AM CDT - 07/24/2024 11:59 PM CDT Hospital Encounter [facility] ([facility]) [address] [place] [address] Jessee Morton MD Lumbar spine pain; Adolescent idiopathic scoliosis of thoracic region Discharge Disposition: Discharge to home or self care 07/24/2024 10:00 AM CDT Office Visit [facility] Orthopaedic Surgery [address] [facility] 6th [place] [address] [place] [address] Jessee Morton MD Lumbar spine pain (Primary Dx); Adolescent idiopathic scoliosis of thoracic region; Chronic bilateral low back pain without sciatica 07/22/2024 Telephone [facility] Transplant Liver [address] [place] [address] [address] Mail[address] 9029-908 [place] [address] Dafne Dukes RN 07/19/2024 Telephone [facility] Transplant Liver [address] [place] [address] [address] Mail[address] 9029-90 [place] [address] Karmen Garsia RN After Hours; Abdominal Pain 07/17/2024 Telephone [facility] Transplant Liver [address] [place] [address] [address] Mail[address] 9029-908 [place] [address] Lorena Turner 07/12/2024 5:48 PM CDT - 07/12/2024 11:59 PM CDT Hospital Encounter [facility] ([facility]) [address] [place] [address], [place] [address] Discharge Disposition: Discharge to home or self care 07/12/2024 5:46 PM CDT - 07/12/2024 11:59 PM CDT Hospital Encounter [facility] ([facility]) [address] [place] [address] Discharge Disposition: Discharge to home or self care 07/12/2024 5:44 PM CDT - 07/12/2024 11:59 PM CDT Hospital Encounter [facility] ([facility]) [address] [place] [address] Discharge Disposition: Discharge to home or self care 07/12/2024 5:43 PM CDT - 07/12/2024 11:59 PM CDT Hospital Encounter [facility] ([facility]) [address] [place] [address] Discharge Disposition: Discharge to home or self care 07/12/2024 Telephone [facility] Nephrology [address] [place] [address] for Advanced Medicine 5th [place] [address] [place] [address] Wilson Swift MD 07/11/2024 Telephone [facility] Transplant Liver [address] [facility] [address] Mail[address] [facility] [place] [address] Dafne Dukes RN 07/11/2024 Telephone [facility] Transplant Liver [address] [facility] [address] Mailstop -298 [place] [address] Yulisa Welch 07/10/2024 Telephone [facility] Transplant Liver [address] [facility] [address] Mailstop 90-298 [place] [address] Liyah Kamara 07/09/2024 Telephone [facility] Transplant Liver [address] [facility] [address] Mailstop [id number] [place] [address] Dafne Dukes RN 07/09/2024 Telephone [facility] Transplant Liver [address] [facility] [address] Mailstop [id number] [place] [address] Yulisa Welch 07/09/2024 8:48 AM CDT - 07/09/2024 11:59 PM CDT Hospital Encounter [facility] ([facility]) [address] [place] [address] Discharge Disposition: Discharge to home or self care 07/09/2024 8:46 AM CDT - 07/09/2024 11:59 PM CDT Hospital Encounter [facility] ([facility]) [address] [place] [address] Discharge Disposition: Discharge to home or self care 07/09/2024 8:44 AM CDT - 07/09/2024 11:59 PM CDT Hospital Encounter [facility]) [address] [place] [address] Discharge Disposition: Discharge to home or self [...] be different from the original. Lab: [facility]. . . Pharmacy: [place], [place] Patient enrolled in [employer] assistance program for [employer] until 03/2025 -[employer] [...] with baseline creatinine ~2. Previously followed at [facility], but has she has been wanting to transfer care to [place] but has not been able to schedule an appointment. She follows with [facility] Transplant Hepatology. Per Liver Transplant office [...] with baseline creatinine ~2. Previously followed at [facility], but has she has been wanting to transfer care to [place] but has not been able to schedule an appointment. She follows with [facility] Hepatology. Per Liver Transplant office [...] with baseline creatinine ~2. Previously followed at [facility], but has she has been wanting to transfer care to [place] but has not been able to schedule an appointment. She follows with [facility]ology. Per Liver Transplant office [...] with baseline creatinine ~2. Previously followed at [facility], but has she has been wanting to transfer care to [place] but has not been able to schedule an appointment. She follows with [facility]ology. Per Liver Transplant office [...] with baseline creatinine ~2. Previously followed at [facility], but has she has been wanting to transfer care to [place] but has not been able to schedule an appointment. She follows with [facility]. Per Liver Transplant office [...] with baseline creatinine ~2. Previously followed at [facility], but has she has been wanting to transfer care to [place] but has not been able to schedule an appointment. She follows with [facility]. Per Liver Transplant office [...] with baseline creatinine ~2. Previously followed at [facility], but has she has been wanting to transfer care to [place] but has not been able to schedule an appointment. She follows with [facility]. Per Liver Transplant office [...] with baseline creatinine ~2. Previously followed at [facility], but has she has been wanting to transfer care to [place] but has not been able to schedule an appointment. She follows with [facility]. Per Liver Transplant office [...] with baseline creatinine ~2. Previously followed at [facility], but has she has been wanting to transfer care to [place] but has not been able to schedule an appointment. She follows with [facility]. Per Liver Transplant office [...] with baseline creatinine ~2. Previously followed at [facility], but has she has been wanting to transfer care to [place] but has not been able to schedule an appointment. She follows with [facility]. Per Liver Transplant office [...] with baseline creatinine ~2. Previously followed at [facility], but has she has been wanting to transfer care to [place] but has not been able to schedule an appointment. She follows with [facility]. Per Liver Transplant office [...] we would not be able to prescribe halfway opioids on discharge. Discussed importance of outpatient [...] we would not be able to prescribe middle or intermediate school principal opioids on discharge. Discussed importance of outpatient [...] we would not be able to prescribe halfway opioids on discharge. Discussed importance of outpatient [...] we would not be able to prescribe halfway opioids on discharge. Discussed importance of outpatient [...] we would not be able to prescribe halfway opioids on discharge. Discussed importance of outpatient [...] we would not be able to prescribe halfway opioids on discharge. Discussed importance of outpatient [...] we would not be able to prescribe middle or intermediate school principal opioids on discharge. Discussed importance of outpatient [...] we would not be able to prescribe halfway opioids on discharge. Discussed importance of outpatient [...] we would not be able to prescribe halfway opioids on discharge. Discussed importance of outpatient [...] we would not be able to prescribe middle or intermediate school principal opioids on discharge. Discussed importance of outpatient [...] we would not be able to prescribe middle or intermediate school principal opioids on discharge. Discussed importance of outpatient [...] we would not be able to prescribe middle or intermediate school principal opioids on discharge. Discussed importance of outpatient [...] with baseline creatinine ~2. Previously followed at [facility], but has she has been wanting to transfer care to [place] but has not been able to schedule an appointment. She follows with [facility]. Per Liver Transplant office [...] with baseline creatinine ~2. Previously followed at [facility], but has she has been wanting to transfer care to [place] but has not been able to schedule an appointment. She follows with [facility]. Per Liver Transplant office [...] with baseline creatinine ~2. Previously followed at [facility], but has she has been wanting to transfer care to [place] but has not been able to schedule an appointment. She follows with [facility]. Per Liver Transplant office [...] with baseline creatinine ~2. Previously followed at [facility], but has she has been wanting to transfer care to [place] but has not been able to schedule an appointment. She follows with [facility]. Per Liver Transplant office [...] with baseline creatinine ~2. Previously followed at [facility], but has she has been wanting to transfer care to [place] but has not been able to schedule an appointment. She follows with [facility]. Per Liver Transplant office [...] with baseline creatinine ~2. Previously followed at [facility], but has she has been wanting to transfer care to [place] but has not been able to schedule an appointment. She follows with [facility]. Per Liver Transplant office [...] 4 mg daily. Will check tacro trough 09/02 AM. -Continue azathioprine 100 mg, given patient [...] Transplant starting process of assuming care from [facility], but in short term they recommend patient follow up with renal transplant at [facility]. - She is NOW actively enrolled in the [employer] free patient assistance program through mar 2025 - [facility] (sent). Hyperbilirubinemia 04/16/2020 Assessment & Plan (04/16/2020 5:01 AM SEMI CONDUCTOR ASSEMBLER): - T. Bili of 7 (last was [...] 07/25/2019 Assessment & Plan (04/16/2020 2:25 AM SEMI CONDUCTOR ASSEMBLER): See hyperbili problem. Concern for ascites Assessment [...] 12/14/2016 Assessment & Plan (04/16/2020 2:26 AM SEMI CONDUCTOR ASSEMBLER): - Chronic, concerned that this may be [...] liver and kidney transplant 04/2020. 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 We would need to call [facility] to identify a contracted center ([phone]). She lives close enough to [place] that would be the most likely city she could travel to. She also noted that she could always remarry an ex- as he has insurance that may be covered at [facility]/. Appreciate note from nephrology and agree with restarting oral diuretics. Can continue tacrolimus at the current dose. MRI/MRCP completed and will review with radiology to identify if any role for PTC. Assessment & Plan (04/16/2020 2:26 AM SEMI CONDUCTOR ASSEMBLER): S/p liver tranplant in 1992 for biliary [...] meds Assessment & Plan (04/16/2020 5:01 AM SEMI CONDUCTOR ASSEMBLER): Unclear if progression of CKD vs acute [...] Cr of 1.8. She follows with local network/telecom engineer Dr. Mathew and thinks her baseline is 2.1. She was at 2.3 at [facility]. She took some diuretics at home and was given lasix at [facility] ED. --UA, urine lytes --get records from her network/telecom engineer to find out baseline --random tacro [...] oz pur e alcohol) rare [facility] Utilities Answer Date Recorded In the past 12 months has [employer], gas, oil, or water [employer] threatened to shut off services in your [...] often do you attend chur ch or advent services? Never 09/03/2024 Do you belong to any clubs o r organizations such as jainism groups, unions, fraternal or athletic groups, or [...] any time in the past 12 m [facility], were you homeless or living in a usp (including now)? No 09/03/2024 Personal Safety Answer Date Recorded Have you ever been in or are you currently in a harmful physical or emotional relationship or is someone making you feel afraid or unsafe? Denies 09/02/2024 Comments No Sex and Gender Information Value Date Recorded Sex Assigned at Not on file Legal Sex Female 10:10 PM SEMI CONDUCTOR ASSEMBLER Gender Identity Not on file Sexual [...] On track(2024 9:02 AM CDT) Matias Arce, RN Note: Problem: Chronic Pain Goals: 1. [...] 5:21 AM CDT DIFFERENTIAL AUTO Routine 09/03/2024 5:21 AM CDT COMPREHENSIVE METABOLIC PANEL Routine 09/03/2024 [...] CDT HEPATITIS PANEL, ACUTE Routine 6:35 AM SEMI CONDUCTOR ASSEMBLER from Last 3 Months or Most Recently Relevant to Health Maintenance Results * Imaging Lumbar/Sacral Facet Medial Branch Block Bilateral (89978) (09/25/2024 9:47 AM CDT) Narrative RAD_PACS_[facility] - [...] Result Performing Organization Address [facility] de Phone Number [facility] Department [place] [address] * Tacrolimus level trough (09/06/2024 9:48 AM CDT) [facility] Tacrolimus trough 6.4 ng/mL Comment: Interpretive [...] Result Performing Organization Address [facility] de Phone Number [facility] Department [place] [address] * (ABNORMAL) Comprehensive metabolic panel (09/06/2024 9:48 AM CDT) [facility] Sodium 139 135 - 145 mmol/L Potassium, pl 4.1 3.3 - 4.9 mmol/L [facility] Comment:Hemolyzed; Potassium value may be falsely elevated by as much as 0.3-0.5 mmol/L. Suggest redraw and reanalysis. Chloride 102 97 - 110 mmol/L [facility] CO2 26 22 - 32 mmol/L [facility] Anion gap 11 2 - 15 mmol/L [facility] BUN 24 6 - 25 mg/dL [facility] Creatinine 2.04(H) 0.60 - 1.10 mg/dL [facility] Glucose 167 70 - 199 mg/dL [facility] Comment: Interpretive Data Fasting glucose >/= 126 [...] 2022. Calcium 8.8 8.5 - 10.3 mg/dL [facility] Bilirubin, total 0.6 0.1 - 1.2 mg/dL [facility] Protein, pl 6.1(L) 6.5 - 8.5 g/dL [facility] Albumin 3.5 3.5 - 5.0 g/dL [facility] Alk phos 241(H) 40 - 130 Units/L [facility] ALT 17 7 - 45 Units/L [facility] AST 41 10 - 45 Units/L [facility] Comment:Hemolyzed; result ma y be falsely elevated Blood 09/06/2024 9:48 AM CDT 09/06/2024 10:15 AM CDT us Britta Zhang MD LAB BLOOD ORDERABLES Aniya maguire Result [facility] [address] Department [place] [address] * (ABNORMAL) eGFR (09/05/2024 10:47 AM CDT) [...] MD LAB BLOOD ORDERABLES Aniya andrez Result [facility] [address] Department [place] [address] * Differential, auto (09/05/2024 10:47 AM CDT) Neutrophil abs 3.84 1.50 - 6.50 K/cumm Imm gran abs 0.03 0.00 - 0.10 K/cumm [facility] Lymphocyte abs 1.33 0.80 - 3.30 K/cumm [facility] Monocyte abs 0.30 0.20 - 0.80 K/cumm [facility] Eosinophil abs 0.15 0.00 - 0.50 K/cumm [facility] Basophil abs 0.01 0.00 - 0.10 K/cumm [facility] Neutrophil pct 67.8 % [facility] Comment: Interpretive Data Percent cell count reference ranges are not reported, since discordance with absolute values may lead to misinterpretation of CBC data. Current Interpretive Data was last revised on 2017. Imm gran pct 0.5 % [facility] Comment: Interpretive Data Percent cell count reference ranges are not reported, since discordance with absolute values may lead to misinterpretation of CBC data. Current Interpretive Data was last revised on 2017. Lymphocyte pct 23.5 % [facility] Comment: Interpretive Data Percent cell count reference ranges are not reported, since discordance with absolute values may lead to misinterpretation of CBC data. Current Interpretive Data was last revised on 2017. Monocyte pct 5.3 % [facility] Comment: Interpretive Data Percent cell count reference ranges are not reported, since discordance with absolute values may lead to misinterpretation of CBC data. Current Interpretive Data was last revised on 2017. Eosinophil pct 2.7 % [facility] Comment: Interpretive Data Percent cell count reference ranges are not reported, since discordance with absolute values may lead to misinterpretation of CBC data. Current Interpretive Data was last revised on 2017. Basophil pct 0.2 % [facility] Comment: Interpretive Data Percent cell count reference ranges are not reported, since discordance with absolute values may lead to misinterpretation of CBC data. Current Interpretive Data was last revised on 2017. Blood 09/05/2024 10:4 7 AM CDT 09/05/2024 11:03 AM CDT Britta Zhang MD LAB BLOOD ORDERABLES Aniya l Result Performing Organization Address [facility] Co de Phone Number [facility] Department [place] [address] * Tacrolimus level trough (09/05/2024 10:47 AM CDT) [facility] Signature Tacrolimus trough 6.2 ng/mL Comment: [...] AM CDT 09/05/2024 11:04 AM CDT Narrative [facility] - 09/05/2024 1:14 PM CDT Draw exactly 12 HOURS after last dose of tacrolimus was given and just BEFORE giving next dose Britta Zhang MD LAB BLOOD ORDERABLES Aniya l Result Performing Organization Address [facility] Co de Phone Number [facility] Department [place] [address] * (ABNORMAL) CBC with auto differential (09/05/2024 10:47 AM CDT) [facility] WBC 5.66 3.80 - 9.90 K/cumm Hgb 11.1(L) 11.9 - 15.5 g/dL [facility] Hct 31.6(L) 35.6 - 45.5 % [facility] Plt 115(L) 150 - 400 K/cumm [facility] MPV 11.4 9.1 - 12.3 fL [facility] RBC 2.81(L) 3.90 - 5.20 M/cumm [facility] MCV 112.5(H) 81.3 - 96.4 fL [facility] MCH 39.5(H) 27.1 - 33.3 pg [facility] MCHC 35.1 32.3 - 35.7 g/dL [facility] RDW CV 14.2 11.1 - 14.9 % [facility] RDW SD 59.0(H) 35.7 - 48.1 fL [facility] NRBC abs 0.00 0.00 - 0.01 K/cumm [facility] Blood 09/05/2024 10:4 7 AM CDT 09/05/2024 11:03 AM CDT us Britta Zhang MD LAB BLOOD ORDERABLES Aniya maguire Result [facility] Department [place] [address] * (ABNORMAL) Comprehensive metabolic panel (09/05/2024 10:47 AM CDT) [facility] Sodium 143 135 - 145 mmol/L Potassium, pl 4.2 3.3 - 4.9 mmol/L [facility] Chloride 102 97 - 110 mmol/L [facility] CO2 28 22 - 32 mmol/L [facility] Anion gap 13 2 - 15 mmol/L [facility] BUN 28(H) 6 - 25 mg/dL [facility] Creatinine 2.49(H) 0.60 - 1.10 mg/dL [facility] Glucose 127 70 - 199 mg/dL [facility] Comment: Interpretive Data Fasting glucose >/= 126 [...] 2022. Calcium 9.0 8.5 - 10.3 mg/dL [facility] Bilirubin, total 0.7 0.1 - 1.2 mg/dL [facility] Protein, pl 6.4(L) 6.5 - 8.5 g/dL [facility] Albumin 3.7 3.5 - 5.0 g/dL [facility] Alk phos 257(H) 40 - 130 Units/L [facility] ALT 18 7 - 45 Units/L [facility] AST 27 10 - 45 Units/L [facility] Blood 09/05/2024 10:4 7 AM CDT 09/05/2024 11:03 AM CDT us Britta Zhang MD LAB BLOOD ORDERABLES Aniya maguire Result [facility] [address] Department [place] [address] * (ABNORMAL) eGFR (09/04/2024 5:03 AM CDT) [...] MD LAB BLOOD ORDERABLES Aniya maguire Result [facility] [address] [place] [address] * Differential, auto (09/04/2024 5:03 AM CDT) Neutrophil abs 2.68 1.50 - 6.50 K/cumm Imm gran abs 0.01 0.00 - 0.10 K/cumm [facility] Lymphocyte abs 1.03 0.80 - 3.30 K/cumm [facility] Monocyte abs 0.23 0.20 - 0.80 K/cumm [facility] Eosinophil abs 0.09 0.00 - 0.50 K/cumm [facility] Basophil abs 0.00 0.00 - 0.10 K/cumm [facility] Neutrophil pct 66.4 % [facility] Comment: Interpretive Data Percent cell count reference ranges are not reported, since discordance with absolute values may lead to misinterpretation of CBC data. Current Interpretive Data was last revised on 2017. Imm gran pct 0.2 % [facility] Comment: Interpretive Data Percent cell count reference ranges are not reported, since discordance with absolute values may lead to misinterpretation of CBC data. Current Interpretive Data was last revised on 2017. Lymphocyte pct 25.5 % [facility] Comment: Interpretive Data Percent cell count reference ranges are not reported, since discordance with absolute values may lead to misinterpretation of CBC data. Current Interpretive Data was last revised on 2017. Monocyte pct 5.7 % [facility] Comment: Interpretive Data Percent cell count reference ranges are not reported, since discordance with absolute values may lead to misinterpretation of CBC data. Current Interpretive Data was last revised on 2017. Eosinophil pct 2.2 % [facility] Comment: Interpretive Data Percent cell count reference ranges are not reported, since discordance with absolute values may lead to misinterpretation of CBC data. Current Interpretive Data was last revised on 2017. Basophil pct 0.0 % [facility] Comment: Interpretive Data Percent cell count reference ranges are not reported, since discordance with absolute values may lead to misinterpretation of CBC data. Current Interpretive Data was last revised on 2017. Blood 09/04/2024 5:03 AM CDT 09/04/2024 5:10 AM CDT us Britta Zhang MD LAB BLOOD ORDERABLES Aniya maguire Result [facility] [address] Department [place] [address] * Tacrolimus level trough (09/04/2024 5:03 AM CDT) [facility] Signature Tacrolimus trough 10.9 ng/mL Comment: Interpretive Data [...] ORDERABLES Aniya maguire Result Performing Organization Address City/[facility]/ZIP Co de Phone Number [facility] Department [place] [address] * (ABNORMAL) CBC with auto differential (09/04/2024 5:03 AM CDT) Pathologist [facility] WBC 4.04 3.80 - 9.90 K/cumm Hgb 11.8(L) 11.9 - 15.5 g/dL [facility] Hct 32.9(L) 35.6 - 45.5 % [facility] Plt 66(L) 150 - 400 K/cumm [facility] MPV 12.0 9.1 - 12.3 fL [facility] RBC 2.96(L) 3.90 - 5.20 M/cumm [facility] MCV 111.1(H) 81.3 - 96.4 fL [facility] MCH 39.9(H) 27.1 - 33.3 pg [facility] MCHC 35.9(H) 32.3 - 35.7 g/dL [facility] RDW CV 14.0 11.1 - 14.9 % [facility] RDW SD 56.5(H) 35.7 - 48.1 fL [facility] NRBC abs 0.00 0.00 - 0.01 K/cumm [facility] Blood 09/04/2024 5:03 AM CDT 09/04/2024 5:10 AM CDT Britta Zhang MD LAB BLOOD ORDERABLES Aniya maguire Result Performing Organization Address City[facility]/ZIP Co de Phone Number [facility] Department [place] [address] * (ABNORMAL) Comprehensive metabolic panel (09/04/2024 5:03 AM CDT) Pathologist [facility] Sodium 137 135 - 145 mmol/L Potassium, pl 4.2 3.3 - 4.9 mmol/L [facility] Chloride 100 97 - 110 mmol/L [facility] CO2 26 22 - 32 mmol/L [facility] Anion gap 11 2 - 15 mmol/L [facility] BUN 30(H) 6 - 25 mg/dL [facility] Creatinine 2.87(H) 0.60 - 1.10 mg/dL [facility] Glucose 153 70 - 199 mg/dL [facility] Comment: Interpretive Data Fasting glucose >/= 126 [...] 2022. Calcium 8.5 8.5 - 10.3 mg/dL [facility] Bilirubin, total 0.8 0.1 - 1.2 mg/dL [facility] Protein, pl 6.6 6.5 - 8.5 g/dL [facility] Albumin 3.5 3.5 - 5.0 g/dL [facility] Alk phos 240(H) 40 - 130 Units/L [facility] ALT 12 7 - 45 Units/L [facility] AST 31 10 - 45 Units/L [facility] Blood 09/04/2024 5:03 AM CDT 09/04/2024 5:10 AM CDT us Britta Zhang MD LAB BLOOD ORDERABLES Aniya maguire Result [facility] [address] Department [place] [address] * (ABNORMAL) eGFR (09/03/2024 5:21 AM CDT) [...] MD LAB BLOOD ORDERABLES Aniya maguire Result [facility] [address] Department [place] [address] * Differential, auto (09/03/2024 5:21 AM CDT) Pathologist [facility] Neutrophil abs 3.79 1.50 - 6.50 K/cumm Imm gran abs 0.03 0.00 - 0.10 K/cumm [facility] Lymphocyte abs 0.84 0.80 - 3.30 K/cumm [facility] Monocyte abs 0.25 0.20 - 0.80 K/cumm [facility] Eosinophil abs 0.05 0.00 - 0.50 K/cumm [facility] Basophil abs 0.00 0.00 - 0.10 K/cumm [facility] Neutrophil pct 76.5 % [facility] Comment: Interpretive Data Percent cell count reference ranges are not reported, since discordance with absolute values may lead to misinterpretation of CBC data. Current Interpretive Data was last revised on 2017. Imm gran pct 0.6 % [facility] Comment: Interpretive Data Percent cell count reference ranges are not reported, since discordance with absolute values may lead to misinterpretation of CBC data. Current Interpretive Data was last revised on 2017. Lymphocyte pct 16.9 % [facility] Comment: Interpretive Data Percent cell count reference ranges are not reported, since discordance with absolute values may lead to misinterpretation of CBC data. Current Interpretive Data was last revised on 2017. Monocyte pct 5.0 % [facility] Comment: Interpretive Data Percent cell count reference ranges are not reported, since discordance with absolute values may lead to misinterpretation of CBC data. Current Interpretive Data was last revised on 2017. Eosinophil pct 1.0 % [facility] Comment: Interpretive Data Percent cell count reference ranges are not reported, since discordance with absolute values may lead to misinterpretation of CBC data. Current Interpretive Data was last revised on 2017. Basophil pct 0.0 % [facility] Comment: Interpretive Data Percent cell count reference ranges are not reported, since discordance with absolute values may lead to misinterpretation of CBC data. Current Interpretive Data was last revised on 2017. Blood 09/03/2024 5:21 AM CDT 09/03/2024 5:31 AM CDT us Britta Zhang MD LAB BLOOD ORDERABLES Aniya maguire Result [facility] [address] Department [place] [address] * Tacrolimus level trough (09/03/2024 5:21 AM [...] AM CDT 09/03/2024 5:31 AM CDT Narrative [facility] - 09/03/2024 9:19 AM CDT Draw exactly 12 HOURS after last dose of tacrolimus was given and just BEFORE giving next dose Britta Zhang MD LAB BLOOD ORDERABLES Aniya maguire Result Performing Organization Address [facility] Co de Phone Number [facility] Department [place] [address] * (ABNORMAL) CBC with auto differential (09/03/2024 5:21 AM CDT) WBC 4.96 3.80 - 9.90 K/cumm Hgb 11.3(L) 11.9 - 15.5 g/dL [facility] Hct 30.7(L) 35.6 - 45.5 % [facility] Plt 83(L) 150 - 400 K/cumm [facility] MPV 11.0 9.1 - 12.3 fL [facility] RBC 2.84(L) 3.90 - 5.20 M/cumm [facility] MCV 108.1(H) 81.3 - 96.4 fL [facility] MCH 39.8(H) 27.1 - 33.3 pg [facility] MCHC 36.8(H) 32.3 - 35.7 g/dL [facility] RDW CV 13.9 11.1 - 14.9 % [facility] RDW SD 54.4(H) 35.7 - 48.1 fL [facility] NRBC abs 0.00 0.00 - 0.01 K/cumm [facility] Blood 09/03/2024 5:21 AM CDT 09/03/2024 5:31 AM CDT Britta Zhang MD LAB BLOOD ORDERABLES Aniya l Result Performing Organization Address [facility]/ZIP Co de Phone Number [facility] Department [place] [address] * (ABNORMAL) Comprehensive metabolic panel (09/03/2024 5:21 AM CDT) Sodium 138 135 - 145 mmol/L Potassium, pl 4.7 3.3 - 4.9 mmol/L [facility] Chloride 101 97 - 110 mmol/L [facility] CO2 29 22 - 32 mmol/L [facility] Anion gap 8 2 - 15 mmol/L [facility] BUN 29(H) 6 - 25 mg/dL [facility] Creatinine 2.92(H) 0.60 - 1.10 mg/dL [facility] Glucose 113 70 - 199 mg/dL [facility] Comment: Interpretive Data Fasting glucose >/= 126 [...] 2022. Calcium 9.2 8.5 - 10.3 mg/dL [facility] Bilirubin, total 1.1 0.1 - 1.2 mg/dL [facility] Protein, pl 6.2(L) 6.5 - 8.5 g/dL [facility] Albumin 3.4(L) 3.5 - 5.0 g/dL [facility] Alk phos 233(H) 40 - 130 Units/L [facility] ALT 13 7 - 45 Units/L [facility] AST 22 10 - 45 Units/L [facility] Blood 09/03/2024 5:21 AM CDT 09/03/2024 5:31 AM CDT us Britta Zhang MD LAB BLOOD ORDERABLES Aniya l Result [facility] [address] Department [place] [address] * BK virus PCR quantitative Blood (09/02/2024 12:21 PM CDT) BKV DNA result, pl Not Detected [facility] Comment: The quantifiable range of this assay is 21.5 IU/mL to 100,000,000 IU/mL (1.33 log IU/mL to 8.00 log IU/mL). Testing was performed by the JOHNNY KBLE0 BKV Quantatitive Test version 2.0 ([employer] Testing performed at [facility] Current Interpretive Data was last revised on 2021. Blood 09/02/2024 12:2 1 PM CDT 09/02/2024 12:52 PM CDT Britta Zhang MD LAB MICROBIOLOGY - GENERA L ORDERABLES Final Result [facility] [address] [place] [address] [facility] * HLA Donor Specific Antibody Report (09/02/2024 [...] Antibody Screen (09/02/2024 12:21 PM CDT) Pathologist [facility] HLA Antibody Screen By Single Antigen Received Blood 09/02/2024 12:2 1 PM CDT 09/03/2024 10:59 AM CDT Britta Zhang MD LAB BLOOD ORDERABLES Aniya l Result [facility] [address] Department [place] [address] * Cytomegalovirus (CMV) DNA PCR, quantitative Blood (09/02/2024 12:21 PM CDT) Pathologist [facility] CMV DNA Not Detected [facility] Comment: Interpretive Data: The quantifiable range of this assay is 34 IUnits/mL to 10,000,000 IUnits/mL (1.53 log IUnits/mL to 7.0 log IUnits/mL). Testing was performed by the JOHNNY 6800 CMV Test ([employer] Testing performed at [facility]. Current interpretive data was last revised on 2020. Blood 09/02/2024 12:2 1 PM CDT 09/02/2024 12:52 PM CDT Britta Zhang MD LAB MICROBIOLOGY - GENERA L ORDERABLES Final Result Performing Organization Address [facility]/ZIP Co de Phone Number [facility] [address] Department [place] [address] [facility] * (ABNORMAL) eGFR (09/02/2024 12:21 PM CDT) Pathologist [facility] eGFR 20(L) >=60 mL/min/1. 73 m2 Comment: Interpretive Data Reference Interval Normal >/= 90 mL/min/1.73m2 Mildly decreased* 60 - 89 mL/min/1.73m2 Mildly to moderately decreased 45 - 59 mL/min/1.73m2 Moderately to severely decreased 30 - 44 mL/min/1.73m2 Severely decreased 15 - 29 mL/min/1.73m2 Kidney Failure < 15 mL/min/1.73m2 *Relative to young adult level Estimated glomerular filtration rate is determined by the 2021 CKD-EPI equation recommended by the National Kidney [...] MD LAB BLOOD ORDERABLES Aniya maguire Result [facility] [address] [place] [address] * Blood culture Blood (09/02/2024 12:21 PM CDT) Report Final Report: No growth Blood 09/02/2024 12:2 1 PM CDT 09/02/2024 1:40 PM CDT Narrative [facility] - 09/06/2024 4:00 PM CDT From [...] this culture, contact the Microbiology Laboratory at [phone]. Interpretive data was last revised on 24. Britta Zhang MD LAB MICROBIOLOGY - GENERA L ORDERABLES Final Result Performing Organization Address City[facility]/ZIP Co de Phone Number [facility] [address] Department [place] [address] * Blood culture Blood (09/02/2024 12:21 PM CDT) Report Final Report: No growth Blood 09/02/2024 12:2 1 PM CDT 09/02/2024 1:40 PM CDT Narrative [facility] - 09/06/2024 4:00 PM CDT Collection->Peripheral 1. [...] this culture, contact the Microbiology Laboratory at [phone]. Interpretive data was last revised on 24. Britta Zhang MD LAB MICROBIOLOGY - GENERA L ORDERABLES Final Result Performing Organization Address [facility]/ZIP Co de Phone Number [facility] [address] Department [place] [address] * (ABNORMAL) Renal function panel (09/02/2024 12:21 PM CDT) Sodium 137 135 - 145 mmol/L Potassium, pl 3.9 3.3 - 4.9 mmol/L [facility] Chloride 97 97 - 110 mmol/L [facility] CO2 31 22 - 32 mmol/L [facility] Anion gap 9 2 - 15 mmol/L [facility] BUN 28(H) 6 - 25 mg/dL [facility] Creatinine 2.89(H) 0.60 - 1.10 mg/dL [facility] Glucose 162 70 - 199 mg/dL [facility] Comment: Interpretive Data Fasting glucose >/= 126 [...] 2022. Calcium 9.7 8.5 - 10.3 mg/dL [facility] Phosphorus, pl 4.1 2.3 - 4.5 mg/dL [facility] Albumin 3.5 3.5 - 5.0 g/dL [facility] Blood 09/02/2024 12:2 1 PM CDT 09/02/2024 12:42 PM CDT us Britta Zhang MD LAB BLOOD ORDERABLES Aniya maguire Result [facility] [address] Department [place] [address] * (ABNORMAL) eGFR (09/02/2024 5:16 AM CDT) [...] Valiente MD LAB BLOOD ORDERABLES Final Result [facility] [address] Department [place] [address] * Differential, auto (09/02/2024 5:16 AM CDT) Pathologist [facility] Neutrophil abs 3.97 1.50 - 6.50 K/cumm Imm gran abs 0.02 0.00 - 0.10 K/cumm [facility] Lymphocyte abs 1.10 0.80 - 3.30 K/cumm [facility] Monocyte abs 0.24 0.20 - 0.80 K/cumm [facility] Eosinophil abs 0.11 0.00 - 0.50 K/cumm [facility] Basophil abs 0.01 0.00 - 0.10 K/cumm [facility] Neutrophil pct 72.8 % [facility] Comment: Interpretive Data Percent cell count reference ranges are not reported, since discordance with absolute values may lead to misinterpretation of CBC data. Current Interpretive Data was last revised on 2017. Imm gran pct 0.4 % [facility] Comment: Interpretive Data Percent cell count reference ranges are not reported, since discordance with absolute values may lead to misinterpretation of CBC data. Current Interpretive Data was last revised on 2017. Lymphocyte pct 20.2 % [facility] Comment: Interpretive Data Percent cell count reference ranges are not reported, since discordance with absolute values may lead to misinterpretation of CBC data. Current Interpretive Data was last revised on 2017. Monocyte pct 4.4 % [facility] Comment: Interpretive Data Percent cell count reference ranges are not reported, since discordance with absolute values may lead to misinterpretation of CBC data. Current Interpretive Data was last revised on 2017. Eosinophil pct 2.0 % [facility] Comment: Interpretive Data Percent cell count reference ranges are not reported, since discordance with absolute values may lead to misinterpretation of CBC data. Current Interpretive Data was last revised on 2017. Basophil pct 0.2 % [facility] Comment: Interpretive Data Percent cell count reference ranges are not reported, since discordance with absolute values may lead to misinterpretation of CBC data. Current Interpretive Data was last revised on 2017. Blood 09/02/2024 5:16 AM CDT 09/02/2024 5:32 AM CDT us Bailee Valiente MD LAB BLOOD ORDERABLES Final Result [facility] [address] [place] [address] * Tacrolimus level trough (09/02/2024 5:16 AM CDT) Tacrolimus trough 17.0 ng/mL Comment: Interpretive Data [...] Result Performing Organization Address [facility]/ZIP Co de Phone Number [facility] Department [place] [address] * (ABNORMAL) CBC with auto differential (09/02/2024 5:16 AM CDT) Pathologist [facility] WBC 5.45 3.80 - 9.90 K/cumm Hgb 11.7(L) 11.9 - 15.5 g/dL [facility] Hct 32.3(L) 35.6 - 45.5 % [facility] Plt 98(L) 150 - 400 K/cumm [facility] MPV 11.4 9.1 - 12.3 fL [facility] RBC 2.95(L) 3.90 - 5.20 M/cumm [facility] MCV 109.5(H) 81.3 - 96.4 fL [facility] MCH 39.7(H) 27.1 - 33.3 pg [facility] MCHC 36.2(H) 32.3 - 35.7 g/dL [facility] RDW CV 13.9 11.1 - 14.9 % [facility] RDW SD 56.6(H) 35.7 - 48.1 fL [facility] NRBC abs 0.00 0.00 - 0.01 K/cumm [facility] Blood 09/02/2024 5:16 AM CDT 09/02/2024 5:32 AM CDT us Bailee Valiente MD LAB BLOOD ORDERABLES Final Result [facility] [place] [address] * (ABNORMAL) Comprehensive metabolic panel (09/02/2024 5:16 AM CDT) [facility] Sodium 137 135 - 145 mmol/L Potassium, pl 4.1 3.3 - 4.9 mmol/L [facility] Chloride 98 97 - 110 mmol/L [facility] CO2 32 22 - 32 mmol/L [facility] Anion gap 7 2 - 15 mmol/L [facility] BUN 29(H) 6 - 25 mg/dL [facility] Creatinine 3.05(H) 0.60 - 1.10 mg/dL [facility] Glucose 185 70 - 199 mg/dL [facility] Comment: Interpretive Data Fasting glucose >/= 126 [...] 2022. Calcium 9.0 8.5 - 10.3 mg/dL [facility] Bilirubin, total 1.0 0.1 - 1.2 mg/dL [facility] Protein, pl 6.3(L) 6.5 - 8.5 g/dL [facility] Albumin 3.8 3.5 - 5.0 g/dL [facility] Alk phos 223(H) 40 - 130 Units/L [facility] ALT 11 7 - 45 Units/L [facility] AST 24 10 - 45 Units/L [facility] Blood 09/02/2024 5:16 AM CDT 09/02/2024 5:32 AM CDT us Bailee Valiente MD LAB BLOOD ORDERABLES Final Result [facility] [address] [place] [address] * Troponin I high-sensitivity 2-hour (09/01/2024 2:58 AM CDT) Trop I hs 5 <=17 ng/L Comment: Interpretive Data For further hscTnI resources including the diagnostic algorithm and an aid in interpretation, copy and paste this link: [email or web address].[email or web address]/[email or web address] Current Interpretive Data last revised 2019. Trop I hs delta 0 ng/L [facility] Trop I hs interp Insignificant [facility] Blood 09/01/2024 2:58 AM CDT 09/01/2024 3:13 AM CDT Diana Cassidy MD LAB BLOOD ORDERABLES Fi nal Result Performing Organization Address City/[facility]/ZIP Co de Phone Number [facility] [address] Department [place] [address] * ECG 12-LEAD (09/01/2024 2:53 AM CDT) Narrative [facility] - 09/01/2024 2:53 AM CDT Elisha Avila MD 09/01/2024 3:24 AM ECG 12 lead Date/Time: 09/01/2024 2:53 AM Performed by: Elisha Avila MD Authorized by: Diana Cassidy MD Diana Cassidy MD ECG ORDERABLES Final R esult Performing Organization Address City[facility]/ZIP Co de Phone Number [facility] * XR Chest PA Lateral [...] Blood culture Blood (09/01/2024 2:18 AM CDT) Pathologist [facility] Direct Specimen Exam Molecular Analysis: Staphylococcus epidermidis (methicillin-resis tant) detected by [facility] BCID-GP panel. Single positive culture may represent contamination. This test does not exclude the possibility of a mixed bacterial infection. Notification of: Staphylococcus epidermidis (methicillin-resis tant) called to and read back by: Flower Moser MD ([phone]) on 09/02/2024 03:01:57 by: Radu Helm MT Direct Specimen Exam Stain: Gram Positive Cocci in clusters Time to culture positivity (anaerobic media): 21.4 hours Notification of: Gram Positive Cocci in clusters called to and read back by: Flower Moser MD ([phone]) on 09/02/2024 01:01:22 by: Radu Helm MT [facility] Report Final Report: Staphylococcus epidermidis Single blood culture positive for this microorganism. Isolate is a possible contaminant. If a similar isolate is recovered from a second blood culture collected within 3 days of this culture, both will be evaluated and, if determined to be the same species, antimicrobial susceptibility testing will be performed. (.) [facility] Organism STAPHYLOCOCCUS EPIDERMIDIS [facility] Blood 09/01/2024 2:18 AM CDT 09/01/2024 2:43 AM CDT Narrative [facility] - 09/06/2024 12:48 PM CDT From a [...] this culture, contact the Microbiology Laboratory at [phone]. Interpretive data was last revised on 24. Diana Cassidy MD LAB MICROBIOLOGY - GENE RAL ORDERABLES Final Result [facility] [address] [place] [address] * US Renal Transplant W Dopplers (09/01/2024 [...] Soto Mena M.D., Ph.D Diana Cassidy MD [facility] PROCEDURES Final Result * (ABNORMAL) Respiratory pathogen panel Nasopharyngeal (09/01/2024 12:58 AM CDT) Pathologist [facility] Influenza A RNA Not Detected Not Detected Influenza B RNA Not Detected Not Detected [facility] RSV RNA Not Detected Not Detected [facility] COVID-19 RNA Not Detected Not Detected [facility] Coronavirus 229E RNA Not Detected Not Detected [facility] Coronavirus HKU1 RNA Not Detected Not Detected [facility] Coronavirus NL63 RNA Not Detected Not Detected [facility] Coronavirus OC43 RNA Not Detected Not Detected [facility] Adenovirus DNA Not Detected Not Detected [facility] Metapneumovirus RNA Not Detected Not Detected [facility] Rhinovirus/Enterov irus RNA Detected(A) Not Detected [facility] Parainfluenza 1 RNA Not Detected Not Detected [facility] Parainfluenza 2 RNA Not Detected Not Detected [facility] Parainfluenza 3 RNA Not Detected Not Detected [facility] Parainfluenza 4 RNA Not Detected Not Detected [facility] B. pertussis DNA Not Detected Not Detected [facility] B. parapertussis DNA Not Detected Not Detected [facility] C. pneumoniae DNA Not Detected Not Detected [facility] M. pneumoniae DNA Not Detected Not Detected [facility] Nasopharyngeal 09/01/2024 12 :58 AM CDT 09/01/2024 2:52 AM CDT Narrative [facility] - 09/01/2024 3:48 AM CDT Is the Patient experiencing symptoms consistent with COVID?->Yes Surveillance testing for transplant patient?->No Interpretive Data The [employer] FilmArray Respiratory Panel (RP2.1) assay is a [...] assay has FDA clearance for testing of GEOSPATIAL APPLICATIONS DEVELOPER swabs. The performance of additional specimen types has been assessed by the performing laboratory. The performance characteristics of this assay have been determined by [facility] Molecular Infectious Disease Laboratory. Current interpretive data was last revised on 21. Diana Cassidy MD LAB MICROBIOLOGY - GENE [facility] ORDERABLES Final Result [facility] [address] Department [place] [address] * Troponin I high-sensitivity series (baseline, 2hr, 4hr, 6hr) (09/01/2024 12:57 AM CDT) [facility] Trop I hs 5 <=17 ng/L Comment: Interpretive Data For further hscTnI resources including the diagnostic algorithm and an aid in interpretation, copy and paste this link: https://bjhlab.testcatalog.org/show/[email or web address] Current Interpretive Data last revised 2019. Blood 09/01/2024 12:5 7 AM CDT 09/01/2024 1:20 AM CDT Diana Cassidy MD LAB BLOOD ORDERABLES Fi nal Result [facility] Department [place] [address] * Sepsis Lactate w/ Reflex (09/01/2024 12:57 AM CDT) [facility] Sepsis Lactate 1.8 0.7 - 2.0 mmol/L Blood 09/01/2024 12:5 7 AM CDT 09/01/2024 1:14 AM CDT Diana Cassidy MD LAB BLOOD ORDERABLES Fi nal Result Performing Organization Address City/[facility]/ZIP Co de Phone Number [facility] Department [place] [address] * (ABNORMAL) eGFR (09/01/2024 12:57 AM CDT) [facility] eGFR 26(L) >=60 mL/min/1. 73 m2 [...] MD LAB BLOOD ORDERABLES Fi nal Result [facility] [address] [place] [address] * Differential, auto (09/01/2024 12:57 AM CDT) Neutrophil abs 4.42 1.50 - 6.50 K/cumm Imm gran abs 0.03 0.00 - 0.10 K/cumm [facility] Lymphocyte abs 1.17 0.80 - 3.30 K/cumm [facility] Monocyte abs 0.38 0.20 - 0.80 K/cumm [facility] Eosinophil abs 0.10 0.00 - 0.50 K/cumm [facility] Basophil abs 0.02 0.00 - 0.10 K/cumm [facility] Neutrophil pct 72.3 % [facility] Comment: Interpretive Data Percent cell count reference ranges are not reported, since discordance with absolute values may lead to misinterpretation of CBC data. Current Interpretive Data was last revised on 2017. Imm gran pct 0.5 % [facility] Comment: Interpretive Data Percent cell count reference ranges are not reported, since discordance with absolute values may lead to misinterpretation of CBC data. Current Interpretive Data was last revised on 2017. Lymphocyte pct 19.1 % [facility] Comment: Interpretive Data Percent cell count reference ranges are not reported, since discordance with absolute values may lead to misinterpretation of CBC data. Current Interpretive Data was last revised on 2017. Monocyte pct 6.2 % [facility] Comment: Interpretive Data Percent cell count reference ranges are not reported, since discordance with absolute values may lead to misinterpretation of CBC data. Current Interpretive Data was last revised on 2017. Eosinophil pct 1.6 % [facility] Comment: Interpretive Data Percent cell count reference ranges are not reported, since discordance with absolute values may lead to misinterpretation of CBC data. Current Interpretive Data was last revised on 2017. Basophil pct 0.3 % [facility] Comment: Interpretive Data Percent cell count reference ranges are not reported, since discordance with absolute values may lead to misinterpretation of CBC data. Current Interpretive Data was last revised on 2017. Blood 09/01/2024 12:5 7 AM CDT 09/01/2024 1:20 AM CDT us Diana Cassidy MD LAB BLOOD ORDERABLES Fi nal Result [facility] [address] [place] [address] * (ABNORMAL) Urinalysis reflex to microscopic and culture Urine, bladder (09/01/2024 12:57 AM CDT) Color, ur Yellow Yellow Clarity, ur Clear Clear [facility] Specific gravity, ur 1.020 1.003 - 1.030 [facility] pH, urine 5.5 [facility] Comment: Interpretive Data U rine pH is affected by diet, medications, systemic acid-base disturbances, and renal tubular function. pH may affect urinary stone formation. For example, urine pH below 6.0 may help reduce the tendency for calcium phosphate stones and pH greater than 6.0 may reduce the tendency for uric acid stone formation. Source: [facility] [employer] Current Interpretive Data was last revised on 2017 Protein, ur ql Trace Negative [facility] Glucose, ur ql Negative Negative [facility] Ketones, ur Trace Negative [facility] Bilirubin, ur Negative Negative [facility] Blood, ur Negative Negative [facility] Urobilinogen, ur 2.0(A) <2.0 mg/dL [facility] Nitrite, ur Negative Negative [facility] Leukocyte esterase, ur Negative Negative [facility] UA reflex comment Reflex conditions for microscopic UA and culture not met. [facility] Urine, bladder 09/01/2024 12 :57 AM CDT 09/01/2024 1:14 AM CDT Diana Cassidy MD LAB MICROBIOLOGY - GENE RAL ORDERABLES Final Result Performing Organization Address [facility] Co de Phone Number [facility] Department [place] [address] * (ABNORMAL) CBC with auto differential (09/01/2024 12:57 AM CDT) WBC 6.12 3.80 - 9.90 K/cumm Hgb 12.7 11.9 - 15.5 g/dL [facility] Hct 35.2(L) 35.6 - 45.5 % [facility] Plt 115(L) 150 - 400 K/cumm [facility] MPV 11.0 9.1 - 12.3 fL [facility] RBC 3.20(L) 3.90 - 5.20 M/cumm [facility] MCV 110.0(H) 81.3 - 96.4 fL [facility] MCH 39.7(H) 27.1 - 33.3 pg [facility] MCHC 36.1(H) 32.3 - 35.7 g/dL [facility] RDW CV 14.2 11.1 - 14.9 % [facility] RDW SD 57.3(H) 35.7 - 48.1 fL [facility] NRBC abs 0.00 0.00 - 0.01 K/cumm [facility] Blood 09/01/2024 12:5 7 AM CDT 09/01/2024 1:20 AM CDT Diana Cassidy MD LAB BLOOD ORDERABLES Fi nal Result Performing Organization Address [facility]/ZIP Co de Phone Number [facility] Department [place] [address] * Tacrolimus level random (09/01/2024 12:57 AM [...] MD LAB BLOOD ORDERABLES Fi nal Result [facility] [address] [place] [address] * Blood culture Blood (09/01/2024 12:57 AM [...] this culture, contact the Microbiology Laboratory at [phone]. Interpretive data was last revised on 24. Diana Cassidy MD LAB MICROBIOLOGY - GENE RAL ORDERABLES Final Result Performing Organization Address [facility] Co de Phone Number [facility] [place] [address] * Phosphorus (09/01/2024 12:57 AM CDT) Pathologist [facility] Phosphorus, pl 2.9 2.3 - 4.5 mg/dL Blood 09/01/2024 12:5 7 AM CDT 09/01/2024 1:20 AM CDT Diana Cassidy MD LAB BLOOD ORDERABLES Fi nal Result Performing Organization Address [facility] [place] [address] * Magnesium (09/01/2024 12:57 AM CDT) Pathologist [facility] Magnesium 1.5 1.4 - 2.5 mg/dL Blood 09/01/2024 12:5 7 AM CDT 09/01/2024 1:20 AM CDT Diana Cassidy MD LAB BLOOD ORDERABLES Fi nal Result Performing Organization Address [facility] [place] [address] * Lipase (09/01/2024 12:57 AM CDT) Pathologist [facility] Lipase 19 10 - 99 Units/L Blood 09/01/2024 12:5 7 AM CDT 09/01/2024 1:20 AM CDT us Diana Cassidy MD LAB BLOOD ORDERABLES Fi nal Result [facility] [address] [place] [address] * (ABNORMAL) Comprehensive metabolic panel (09/01/2024 12:57 AM CDT) Sodium 138 135 - 145 mmol/L Potassium, pl 4.5 3.3 - 4.9 mmol/L [facility] Comment:Hemolyzed; Potassium value may be falsely elevated by as much as 0.3-0.5 mmol/L. Suggest redraw and reanalysis. Chloride 105 97 - 110 mmol/L [facility] CO2 24 22 - 32 mmol/L [facility] Anion gap 9 2 - 15 mmol/L [facility] BUN 21 6 - 25 mg/dL [facility] Creatinine 2.34(H) 0.60 - 1.10 mg/dL [facility] Glucose 89 70 - 199 mg/dL [facility] Comment: Interpretive Data Fasting glucose >/= 126 [...] 2022. Calcium 8.7 8.5 - 10.3 mg/dL [facility] Bilirubin, total 1.1 0.1 - 1.2 mg/dL [facility] Protein, pl 7.1 6.5 - 8.5 g/dL [facility] Albumin 3.9 3.5 - 5.0 g/dL [facility] Alk phos 257(H) 40 - 130 Units/L [facility] ALT 14 7 - 45 Units/L [facility] AST 37 10 - 45 Units/L [facility] Comment:Hemolyzed; result ma y be falsely elevated Blood 09/01/2024 12:5 7 AM CDT 09/01/2024 1:20 AM CDT Diana Cassidy MD LAB BLOOD ORDERABLES Fi nal Result [facility] [address] Department [place] [address] * Surgical pathology (08/02/2024 9:18 AM CDT) Tissue (Miscellaneous) 08/02/2024 9:18 AM CDT 08/02/2024 9:18 AM CDT Narrative [facility] - 08/14/2024 2:01 PM CDT EPIC results best viewed via link to PDF [facility] Pathology Consult Service [address], [place] [address] Note to Patients: This report [...] SURGICAL PATHOLOGY REPORT * Consult Report * [facility] is providing an additional review of previously collected tissue. FINAL Patient Name: MISHA BROWNE Address: [address] [place] [id number] Gender: F : 1980 (Age: 43) Hospital #: [id number] Patient Type: WILL Location: UNKNOWN Taken: 08/02/2024 Received: 08/02/2024 Accessioned: 08/05/2024 Reported: 08/14/2024 Physician(s): Beatriz Lee M.D. [facility] Department of Pathology [address] [facility] [address] [place] [address] P: [phone] F: [phone] Diagnosis: Consult material received from [place], [place] (OSC: [id number]; 11/17/2023) A. 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 Liver, allograft, approximately 3 years [...] 14:01:19 Diagnosis Comment Consult material received from [place] (OSC: [id number]; 11/17/2023) Per chart review patient had a OLT in 1992 then a combined liver and kidney transplant at [facility] on 04/2020. Course was complicated by biopsy [...] show moderate inflammatory infiltrate. There is patchy fpxk-yf-metfwyvf tubulitis. Small arteries and arterioles show mild [...] Received for review are ten slides labeled [id number], and nine slides labeled [id number], accompanied by a corresponding pathology report. The material originates from [facility], [place], [place]. Selected slide(s) may be digitally scanned for [...] occasional mononuclear cells Arteriolar hyalinosis (ah): ah1 Nkew-kg-qbtmorgk PAS-positive hyaline thickening in at least one [...] the Department of Pathology and Immunology at [facility], [address] [place] [address] CLIA # [id number] The performance characteristics of the testing cited in this report (if any) were determined by the [facility] Department of Pathology and Immunology [facility], as part of an ongoing supplier quality specialist program and in compliance with federally mandated [...] characteristics determined by the [facility], [facility] Department of Pathology and Immunology. It has not been cleared or approved by the U.S. Food and Drug Administration. Any test designated as LDT was developed and its performance characteristics determined by [facility]. It has not been cleared or approved by the FDA. This test is used for clinical purposes and should not be regarded as investigational or for research. Report images and/or scanned reports, if included, only viewable in PDF version of report. Beatriz Lee MD LAB PATHOLOGY ORDERA BLES Final Result [facility] [address] [place] [address] * XR Scoliosis 6 or More Views [...] Outside Reference (07/12/2024 5:48 PM CDT) Impressions [facility] - 07/12/2024 5:48 PM CDT These images are for Reference purposes only and have not been reviewed by [facility]. There will be no report generated by a [facility] Radiologist. Narrative [facility] - 07/12/2024 5:48 PM CDT EXAMINATION: Images For Reference Purposes Only Jessee Morton MD IMG CT PROCEDURES Final Re sult [facility] * Neuro CT Outside Reference (07/12/2024 5:46 PM CDT) Impressions [facility] - 07/12/2024 5:46 PM CDT These images are for Reference purposes only and have not been reviewed by [facility]. There will be no report generated by a [facility] Radiologist. Narrative [facility] - 07/12/2024 5:46 PM CDT EXAMINATION: Images For Reference Purposes Only Jessee Morton MD IMG CT PROCEDURES Final Re sult Performing Organization Address [facility] de Phone Number [facility] * Neuro MR Outside Reference (07/12/2024 5:44 PM CDT) Impressions [facility] - 07/12/2024 5:44 PM CDT These images are for Reference purposes only and have not been reviewed by [facility]. There will be no report generated by a [facility] Radiologist. Narrative [facility] - 07/12/2024 5:44 PM CDT EXAMINATION: Images For Reference Purposes Only Jessee Morton MD IMG MRI PROCEDURES Final R esult Performing Organization Address [facility] de Phone Number [facility] * Neuro MR Outside Reference (07/12/2024 5:43 PM CDT) Impressions [facility] - 07/12/2024 5:43 PM CDT These images are for Reference purposes only and have not been reviewed by [facility]. There will be no report generated by a [facility] Radiologist. Narrative [facility] - 07/12/2024 5:43 PM CDT EXAMINATION: Images For Reference Purposes Only Jessee Morton MD IMG MRI PROCEDURES Final R esult Performing Organization Address [facility] de Phone Number [facility] * XR Outside Reference (07/09/2024 8:48 AM CDT) Impressions [facility] - 07/09/2024 8:48 AM CDT These images are for Reference purposes only and have not been reviewed by [facility]. There will be no report generated by a [facility] Radiologist. Narrative [facility] - 07/09/2024 8:48 AM CDT EXAMINATION: Images For Reference Purposes Only Jessee Morton MD IMG XR PROCEDURES Final Re sult Performing Organization Address [facility] de Phone Number [facility] * XR Outside Reference (07/09/2024 8:46 AM CDT) Impressions [facility] - 07/09/2024 8:46 AM CDT These images are for Reference purposes only and have not been reviewed by [facility]. There will be no report generated by a [facility] Radiologist. Narrative [facility] - 07/09/2024 8:46 AM CDT EXAMINATION: Images For Reference Purposes Only Jessee Morton MD IMG XR PROCEDURES Final Re sult Performing Organization Address [facility] de Phone Number [facility] * XR Outside Reference (07/09/2024 8:44 AM CDT) Impressions [facility] - 07/09/2024 8:44 AM CDT These images are for Reference purposes only and have not been reviewed by [facility]. There will be no report generated by a [facility] Radiologist. Narrative [facility] - 07/09/2024 8:44 AM CDT EXAMINATION: Images For Reference Purposes Only Jessee Morton MD IMG XR PROCEDURES Final Re sult Performing Organization Address [facility] de Phone Number [facility] * Hepatitis panel, acute (04/16/2020 6:35 AM SEMI CONDUCTOR ASSEMBLER) Hep A IgM Nonreactive Nonreactive [facility] Comment: Interpretive Data: If Hep A IgM Ab is reported as Equivocal, a new sample should be drawn in two weeks for testing. Current interpretive data was last revised on 19. Hep B core IgM Nonreactive Nonreactive [facility] Comment: Interpretive Data If HepB Core IgM Ab is reported as Equivocal, a new sample should be drawn in two weeks for testing. Current interpretive data was last revised on 19. Hep C Ab Nonreactive Nonreactive [facility] Comment:Antibodies to HCV no t detected. Does NOT exclude the possibility of recent exposure to HCV. HepBsAg Nonreactive Nonreactive [facility] Blood specimen (specimen) 04/16/2020 6:35 AM SEMI CONDUCTOR ASSEMBLER 04/16/2020 7:34 AM SEMI CONDUCTOR ASSEMBLER us Jacob Gates MD LAB MICROBIOLOGY - GENER AL ORDERABLES Final Result [facility] [address] [place] [address] from Last 3 Months or Most Recently Relevant to Health Maintenance Insurance [employer] OPEN ACCESS [facility] CIG[employer] OPEN ACCESS [facility] [place] Advance Directives For more information, please contact: [phone] * Full Code (Latest Code Status on [...] 6:15 AM 07/25/2019 11:51 PM Care Teams Fruit Grading Supervisor Relationship Specialty Start Date End Date Lyly Fiore NP [address] [place] [address] PCP - General Nurse Practitioner 05/29/24 Beatriz Lee MD [address] [place] [address] Referring Physician Gastroenterology 07/25/19 Taylor Kitchen, clinical phlebotomistScreen Room Operator 05/29/24
--- OUTSIDE RECORDS SUMMARY | 2024-10-08 14:14 | XMS_ITS | Clinical Summary ---
Author Organization [facility] Address [address] [place] [address] Phone Care Team Providers Care Waste Disposal Attendant Name Role Phone Hermes Ramirez MD Primary Care Provider [phone] Allergies Active Allergy Reactions Criticality Noted Date [...] BEDTIME 2 Active Butalbital-APAP -Caff-Cod (Fioricet/Codei ne) 28-522-24-30 MG Capsule Take by mouth. 2 Active [...] 07/26/2024 5:51 PM CDT Emergency [facility] Emergency [address] [place] [address] Gabriel Mcintyre PAC GERD (gastroesophageal reflux disease) [...] this topic Insurance MEDICAID BL[place]OSS [place] [facility] [employer] Care Teams Waste Disposal Attendant Relationship Specialty Start Date End Date Hermes Ramirez MD [address] [address] PCP - General Family Medicine 05/09/18
--- OUTSIDE RECORDS SUMMARY | 2024-10-08 14:14 | XMS_ITS | Encounter Summary ---
Author Organization [facility] Address [address] [place] [address] Care Team Providers Care Charge Master Analyst Name Role Phone Ashley ZUNIGA MD, Hermes Primary Care Provid er Lyly Fiore NP Primary Care Provider [phone] Encounter Details Date Type Department Care Team (Late st Contact Info) Description 06/03/2017 Abstract [facility] CONVERSION [address] [place] [address] , Generic ConversionMD Social History Tobacco Use Types Packs/Day Years Used Date Smoking Tobacco: Never Assessed Comments Unknown Sex and Gender Information Value Date Recorded Sex Assigned at Female 04/05/2024 4:26 PM SPECIAL PROJECTS COORDINATOR Legal Sex Female 9:15 PM SPECIAL PROJECTS COORDINATOR Gender Identity Not on file Sexual Orientation Not on file documented as of this encounter Plan of Treatment Not on file documented as of this encounter Visit Diagnoses Not on filedocumented in this encounter Additional Health Concerns Infection Onset Date Last Indicated Resolved Time COVID-19 Rule Out 03/30/2020 03/30/2020 03/30/2020 9:29 PM SPECIAL PROJECTS COORDINATOR COVID-19 Rule Out 03/30/2020 03/30/2020 03/31/2020 12:28 PM SPECIAL PROJECTS COORDINATOR COVID-19 Rule Out 02/16/2024 02/16/2024 02/16/2024 9:16 PM SPECIAL PROJECTS COORDINATOR Rhinovirus 02/16/2024 02/16/2024 02/26/2024 12:3 2 AM SPECIAL PROJECTS COORDINATOR COVID-19 Rule Out 08/26/2024 08/26/2024 08/26/2024 11:07 PM CDT Respiratory Rule Out 08/26/2024 08/26/2024 025 11:06 PM CDT documented as of this encounter Care Teams Charge Master Analyst Relationship Specialty Start Date End Date Hermes Ramirez III, MD [address] [address] PCP - General FAMILY PRACTICE 06/20/17 04/13/24 Lyly Fiore NP [address] [place] [address] PCP - General NURSE PRACTITIONER 04/14/24 documented as of this encounter
--- OUTSIDE RECORDS SUMMARY | 2024-10-08 14:14 | XMS_ITS | Encounter Summary ---
Author Organization [facility] Address [facility] [place] [address] Care Team Providers Care Environmental Engineer Name Role Phone Ashley ZUNIGA MD, Hermes Perez Primary Care Provid er Lyly Fiore NP Primary Care Provider [phone] Encounter Details Date Type Department Care Team (Late st Contact Info) Description 02/22/2024 Hospital Follow-up Call [facility] [address] [place] [address] Zulma Ardon, RN Social History Tobacco Use [...] any time in the past 12 m [facility], were you homeless or living in a assisted (including now)? No 02/20/2024 Comments No Sex and Gender Information Value Date Recorded Sex Assigned at Female 04/05/2024 4:26 PM APPLICATION TESTER Legal Sex Female 9:15 PM APPLICATION TESTER Gender Identity Not on file Sexual [...] Rhinovirus 02/16/2024 02/16/2024 02/26/2024 12:3 2 AM APPLICATION TESTER COVID-19 Rule Out 08/26/2024 08/26/2024 08/26/2024 11:07 PM CDT Respiratory Rule Out 08/26/2024 08/26/2024 025 11:06 PM CDT documented as of this encounter Care Teams Environmental Engineer Relationship Specialty Start Date End Date Hermes Ramirez III, MD [address] [address] PCP - General FAMILY PRACTICE 06/20/17 04/13/24 Lyly Fiore NP [address] [place] [address] PCP - General NURSE PRACTITIONER 04/14/24 documented as of this encounter
--- OUTSIDE RECORDS SUMMARY | 2024-10-08 14:14 | XMS_ITS ---
Author Organization [facility] Address [address] [place] [address] Care Team Providers Care Vehicle Mechanic Name Role Phone Beatriz Lee MD Unavailable [phone] Lyly Fiore VENDING SERVICE TECHNICIAN Primary Care Provider Taylor Kitchen RN Unavailable Unav ailable Transplant Episode Liver Recipient [facility] ([place], [place]) - [facility] Transplanted on 05/09/2020 Marked as Active Follow-up on 07/01/2024 Reason: In Transition Process Liver CoordinatorTaylor Kitchen RN Phone: N/A Fax: N/A Email: N/A Transplanted Elsewhere: [facility] ([place], [place]) - [facility] Coordinator: Phone: Fax: 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
--- NOTE | 2024-10-08 14:35 | ED.BACK ---
HPI - Back Pain/Injury General Chief Complaint: Back Pain/Injury Stated Complaint: back pain Time Seen by Provider: 10/08/24 14:23 Source: patient Mode of arrival: ambulatory Limitations: no limitations History of Present Illness HPI Narrative: 44-year-old with a history renal and liver transplant, recurrent back pain, headache here with a complains of having low back pain and headache since this morning. She states that she has taken Tylenol 1000 mg with no relief. She is under the care of Dr. Graham pain management at [facility] . she states that she is scheduled for another injection to her back next wk MD elicited complaint: back pain and other (head ache) Pertinent past history: prior back pain Onset (ago): day(s) (1) Timing: constant Severity: moderate Similar Symptoms Previously: Yes Quality: aching Location: lumbar spine Radiation: none Exacerbating factors: none Relieving factors: none Context: while lifting Associated symptoms: denies other symptoms Related Data Allergies Allergy/AdvReac Type Severity Reaction Status Date / Time erythromycin base Allergy Intermediate Rash Verified 10/08/24 14:13 gentamicin Allergy Intermediate Rash Verified 10/08/24 14:13 ketorolac (From Toradol) AdvReac Severe Abdominal Verified 10/08/24 14:13 Pain NSAIDS (Non-Steroidal AdvReac Severe Abdominal Verified 10/08/24 14:13 Anti-Inflamma Pain Review of Systems Review of Systems: All systems reviewed & are unremarkable except as noted in HPI and below Constitutional: Constitutional: Reports no additional constitutional complaints Eyes: Eyes: Reports no additional eye complaints ENT: Reports system reviewed and no additional complaints, except as documented Cardiovascular: Cardiovascular: Reports no additional cardiovascular complaints Respiratory: Respiratory: Reports no additional respiratory complaints Gastrointestinal: Gastrointestinal: Reports no additional gastrointestinal complaints Genitourinary: Genitourinary: Reports no additional female genitourinary complaints Musculoskeletal: Musculoskeletal: Reports as per HPI PMFSH Past Medical History Medical History Anxiety and depression Spinal stenosis DJD (degenerative joint disease) Migraine Biliary atresia Surgical History Surgical History Liver transplant recipient Exam Narrative: GENERAL: Well-appearing, well-nourished, and in no acute distress. HEAD: Normocephalic, atraumatic. EYES: PERRLA and EOMI. ENT: Nares clear, no rhinorrhea or epistaxis. Mucous membranes moist. NECK: Supple. CHEST: Clear to auscultation. No respiratory distress. HEART: Regular rate and rhythm. No murmur heard. Normal peripheral pulses. EXTREMITIES: Normal range of motion. No edema. SKIN: Warm, dry, no rash. NEURO: No focal deficits. Alert and oriented x3. PSYCH: Normal mood and affect. Course Course Emergency Course: patient states the only relief she gets his care with her cocktail IV hydromorphone, Benadryl and Compazine of pain . Vital Signs Vital signs: Vital Signs Temperature 36.7 C 10/08/24 14:05 Pulse Rate 119 H 10/08/24 14:05 Respiratory Rate 18 10/08/24 14:05 Blood Pressure 175/107 H 10/08/24 14:05 Pulse Oximetry 96 10/08/24 14:05 Oxygen Delivery Room Air 10/08/24 14:05 Temperature 36.7 C 10/08/24 14:05 Pulse Rate 119 H 10/08/24 14:05 Respiratory Rate 18 10/08/24 14:05 Blood Pressure 175/107 H 10/08/24 14:05 Pulse Oximetry 96 10/08/24 14:05 Oxygen Delivery Room Air 10/08/24 14:05 Discharge Plan Discharge Clinical Impression: Migraine Qualifiers: Migraine type: unspecified Status migrainosus presence: without status migrainosus Intractability: not intractable Qualified Code(s): G43.909 - Migraine, unspecified, not intractable, without status migrainosus Back pain Qualifiers: Back pain location: back pain in unspecified location Chronicity: chronic Back pain laterality: bilateral Qualified Code(s): M54.9 - Dorsalgia, unspecified; G89.29 - Other chronic pain Patient Disposition: Home Condition: Stable Instructions: Back Pain (ED) Additional Instructions: Continue home medications, follow-up with your primary doctor or pain management doctor Patient Language: Swiss Follow-up/Referrals: UNKNOWN,DOCTOR [Non-Staff] - Time of Disposition: 16:08
--- OUTSIDE RECORDS SUMMARY | 2024-10-08 14:49 | XMS_ITS | Continuity of Care Document ---
Author Organization [facility] Address [address] [place] [address] Phone Care Team Providers Care Grocery Carrier Name Role Phone Santana Timmons MD Unavailable Unavailable Procedures Procedure Date Subsequent Hospital Care Initial Inpatient Consult Advance Directives Directive Yes / No Effective Date File Name No Information Encounters Encounter Description Practice Location Reason(s) For Visit Diagnoses Date Provider Providers Copied on Encounter Subsequent Hospital Care [facility], [address] [place] [address], [id number], tel:[phone] [facility] No Information 1 Shanelle Dillon. [address] [place] [address], [id number], [place]. tel:[phone] Referring Provider: Hermes Ramirez , [address] [place] [address], [address]. tel:[phone] Initial Inpatient Consult [facility], [address] [place] [address], [id number], tel:[phone] [facility] No Information Shanelle Dillon. [address] [place] [address], [id number], . tel:[phone] Referring Provider: Hermes Ramirez [address], [address]. tel:[phone] Family History Family Member Type Diagnosis Age At Onset No Information Payers Payer name Insurance type Covered libertarian ID Authoriza tiyoan(s) [facility] [id number] Social History Type Description Quantity Date Captured Comments Sex Female Smoking Status No Information Chief Complaint And Reason For Visit No Information History Of Present Illness Encounter Date Complaint History Of Prese nt Illness No Information Instructions Date Instruction Additional Infor mation No Information Assessments Type Assessment Date No Information
--- OUTSIDE RECORDS SUMMARY | 2024-10-08 14:50 | XMS_ITS | Clinical Summary ---
Author Organization [facility] Address [address] [place] [address] Phone Care Team Providers Care Reservoir Engineering Consultant Name Role Phone Hermes Ramirez MD Primary Care Provider [phone] Allergies Active Allergy Reactions Criticality Noted Date [...] BEDTIME 2 Active Butalbital-APAP -Caff-Cod (Fioricet/Codei ne) 12-315-77-30 MG Capsule Take by mouth. 2 Active [...] 07/26/2024 5:51 PM CDT Emergency [facility] [address] [place] [address] Gabriel Mcintyre PAC GERD (gastroesophageal reflux disease) [...] this topic Insurance MEDICAID [place] [facility] [employer] Care Teams Reservoir Engineering Consultant Relationship Specialty Start Date End Date Hermes Ramirez MD [address] [address] PCP - General Family Medicine 05/09/18
--- OUTSIDE RECORDS SUMMARY | 2024-10-08 14:50 | XMS_ITS | Clinical Summary ---
Author Organization [facility] Address [address] [place] [address] Care Team Providers Care Underpresser Hand Name Role Phone Beatriz Lee MD Unavailable [phone] Lyly Fiore WALLPAPER PRINTER Primary Care Provider Taylor Kitchen RN Unavailable [...] t be different from the original. Lab: [facility]. . . Pharmacy: [facility] [place], [place] Patient enrolled in [employer] assistance program for [employer] until 03/2025 -[employer] pharmacy for script Problem Noted Date Diagnosed [...] with baseline creatinine ~2. Previously followed at [facility], but has she has been wanting to transfer care to [place] but has not been able to schedule an appointment. She follows with [facility]. Per Liver Transplant office [...] with baseline creatinine ~2. Previously followed at [facility], but has she has been wanting to transfer care to [place] but has not been able to schedule an appointment. She follows with [facility]. Per Liver Transplant office [...] with baseline creatinine ~2. Previously followed at [facility], but has she has been wanting to transfer care to [place] but has not been able to schedule an appointment. She follows with [facility]. Per Liver Transplant office [...] with baseline creatinine ~2. Previously followed at [facility], but has she has been wanting to transfer care to [place] but has not been able to schedule an appointment. She follows with [facility]. Per Liver Transplant office [...] with baseline creatinine ~2. Previously followed at [facility], but has she has been wanting to transfer care to [place] but has not been able to schedule an appointment. She follows with [facility]. Per Liver Transplant office [...] with baseline creatinine ~2. Previously followed at [facility], but has she has been wanting to transfer care to [place] but has not been able to schedule an appointment. She follows with [facility]. Per Liver Transplant office [...] with baseline creatinine ~2. Previously followed at [facility], but has she has been wanting to transfer care to [place] but has not been able to schedule an appointment. She follows with [facility]. Per Liver Transplant office [...] with baseline creatinine ~2. Previously followed at [facility], but has she has been wanting to transfer care to [place] but has not been able to schedule an appointment. She follows with [facility]. Per Liver Transplant office [...] with baseline creatinine ~2. Previously followed at [facility], but has she has been wanting to transfer care to [place] but has not been able to schedule an appointment. She follows with [facility]. Per Liver Transplant office [...] with baseline creatinine ~2. Previously followed at [facility], but has she has been wanting to transfer care to [place] but has not been able to schedule an appointment. She follows with [facility]. Per Liver Transplant office [...] with baseline creatinine ~2. Previously followed at [facility], but has she has been wanting to transfer care to [place] but has not been able to schedule an appointment. She follows with [facility]. Per Liver Transplant office [...] we would not be able to prescribe terminal system operator opioids on discharge. Discussed importance of [...] we would not be able to prescribe terminal system operator opioids on discharge. Discussed importance of [...] we would not be able to prescribe terminal system operator opioids on discharge. Discussed importance of [...] we would not be able to prescribe terminal system operator opioids on discharge. Discussed importance of [...] we would not be able to prescribe terminal system operator opioids on discharge. Discussed importance of [...] we would not be able to prescribe terminal system operator opioids on discharge. Discussed importance of [...] we would not be able to prescribe terminal system operator opioids on discharge. Discussed importance of [...] we would not be able to prescribe terminal system operator opioids on discharge. Discussed importance of [...] we would not be able to prescribe terminal system operator opioids on discharge. Discussed importance of [...] with baseline creatinine ~2. Previously followed at [facility], but has she has been wanting to transfer care to [place] but has not been able to schedule an appointment. She follows with [facility]. Per Liver Transplant office [...] with baseline creatinine ~2. Previously followed at [facility], but has she has been wanting to transfer care to [place] but has not been able to schedule an appointment. She follows with [facility]. Per Liver Transplant office [...] with baseline creatinine ~2. Previously followed at [facility], but has she has been wanting to transfer care to [place] but has not been able to schedule an appointment. She follows with [facility]. Per Liver Transplant office [...] with baseline creatinine ~2. Previously followed at [facility], but has she has been wanting to transfer care to [place] but has not been able to schedule an appointment. She follows with [facility]. Per Liver Transplant office [...] with baseline creatinine ~2. Previously followed at [facility], but has she has been wanting to transfer care to [place] but has not been able to schedule an appointment. She follows with [facility]. Per Liver Transplant office [...] with baseline creatinine ~2. Previously followed at [facility], but has she has been wanting to transfer care to [place] but has not been able to schedule an appointment. She follows with [facility]. Per Liver Transplant office [...] Transplant starting process of assuming care from [facility], but in short term they recommend patient follow up with renal transplant at [facility]. - She is NOW actively enrolled in the [employer] free patient assistance program through mar 2025 - script needs to be sent to [facility] (sent). Hyperbilirubinemia 04/16/2020 Assessment & Plan (04/16/2020 5:01 AM AIR MARSHAL): - T. Bili of 7 (last was [...] 07/25/2019 Assessment & Plan (04/16/2020 2:25 AM AIR MARSHAL): See hyperbili problem. Concern for ascites Assessment [...] 12/14/2016 Assessment & Plan (04/16/2020 2:26 AM AIR MARSHAL): - Chronic, concerned that this may be [...] liver and kidney transplant 04/2020. 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 We would need to call [facility] to identify a contracted center ([phone]). She lives close enough to [place] that would be the most likely city she could travel to. She also noted that she could always remarry an ex- as he has insurance that may be covered at [facility]/. Appreciate note from nephrology and agree with restarting oral diuretics. Can continue tacrolimus at the current dose. MRI/MRCP completed and will review with radiology to identify if any role for PTC. Assessment & Plan (04/16/2020 2:26 AM AIR MARSHAL): S/p liver tranplant in 1992 for biliary [...] meds Assessment & Plan (04/16/2020 5:01 AM AIR MARSHAL): Unclear if progression of CKD vs acute [...] Cr of 1.8. She follows with local glassware maker Dr. Mathew and thinks her baseline is 2.1. She was at 2.3 at OSH. She took some diuretics at home and was given lasix at OSH ED. --UA, urine lytes --get records from her glassware maker to find out baseline --random tacro level --monitor Is & Os; avoid nephrotoxins Encounters Date Type Department Care Team Description 09/26/2024 Telephone [facility] Advanced Medicine [address] [place] [address] Advanced Medicine [address] [place] [address] Igor Graham MD Post-Op Call 09/25/2024 8:48 AM CDT - 09/25/2024 11:59 PM CDT Hospital Encounter [facility] at the [facility] Medicine [address] [place] [address] Advanced Medicine [address] [place] [address] Igor Graham MD Lumbar disc disease with radiculopathy (Primary Dx); Lumbar spondylosis Discharge Disposition: Discharge to home or self care 09/19/2024 Telephone [facility] Medicine [address] [place] [address] Advanced Medicine [address] [place] [address] Igor Graham MD [facility] Preprocedure 09/09/2024 SHOP/CHAP Initial Eligibility Review [facility] OP CASE MANAGEMENT [address] [place] [address] Shireen Griffin RN 08/31/2024 11:48 PM CDT - 09/06/2024 4:45 PM CDT Hospital Encounter [facility] [address] [place] [address] Elisha Avila MD Freilich, Michelle Amanda, MD Girardi, Margo Renee, MD Abdominal pain (Primary Dx); Liver transplant failure and rejection (HCC); Rhinovirus infection Discharge Disposition: Discharge to home or self care 08/27/2024 Telephone [facility] [address] [facility] Advanced Medicine [address] [place] [address] Igor Graham MD Pre Procedure 08/15/2024 10:30 AM CDT Clinical Support [place] [id number] [facility] Advanced [facility] 1st [place] [address] Brielle Carrillo, PhD 08/15/2024 Results Follow-Up [facility] Transplant Liver [address] [facility] [address] Mailstop [phone] [place] [address] Taylor Kitchen RN Surgical pathology 08/14/2024 12:21 PM CDT - 08/14/2024 11:59 PM CDT Hospital Encounter [facility] [address] [facility] Advanced Medicine [address] [place] [address] Igor Graham MD Lumbar spondylosis (Primary Dx); Lumbar disc disease with radiculopathy Discharge Disposition: Discharge to home or self care 08/02/2024 Orders Only [facility] [address] [place] [address] Beatriz Lee MD History of liver transplant (HCC); History of kidney transplant 08/01/2024 Telephone [facility] Transplant Liver [address] [facility] [address] Mailstop [phone] [place] [address] Misty Vail RN 07/29/2024 Telephone [facility] Transplant Liver [address] [facility] [address] Mailstop [phone] [place] [address] Lorena Turner 07/26/2024 2:55 PM CDT - 07/26/2024 2:56 PM CDT Emergency [facility] Emergency Department [address] [place] [address] Discharge Disposition: Left without being seen 07/24/2024 10:00 AM CDT Office Visit [facility] Orthopaedic Surgery [address] [facility] for Advanced Medicine 6th [place] [address] [place] [address] Jessee Morton MD Lumbar spine pain (Primary Dx); Adolescent idiopathic scoliosis of thoracic region; Chronic bilateral low back pain without sciatica 07/24/2024 9:45 AM CDT - 07/24/2024 11:59 PM CDT Hospital Encounter [facility] ([facility]) [address] [place] [address] Jessee Morton MD Lumbar spine pain; Adolescent idiopathic scoliosis of thoracic region Discharge Disposition: Discharge to home or self care 07/24/2024 Telephone [facility] Transplant Liver [address] [facility] [address] Mailstop -47-2 [place] [address] Lorena Turner 07/22/2024 Telephone [facility] Transplant Liver [address] [facility] [address] Mailstop 90-90-2 [place] [address] Dafne Dukes RN 07/19/2024 Telephone [facility] Trans[facility] Liver [address] [facility] [address] Mailstop 90-33-7 [place] [address] Karmen Garsia RN After Hours; Abdominal Pain 07/17/2024 Telephone [facility] Transplant Liver [address] [facility] [address] Mailstop [phone] [place] [address] Lorena Turner 07/12/2024 5:48 PM CDT - 07/12/2024 11:59 PM CDT Hospital Encounter [facility] ([facility]) [address] [place] [address] Discharge Disposition: Discharge to home or self care 07/12/2024 5:46 PM CDT - 07/12/2024 11:59 PM CDT Hospital Encounter [facility] ([facility]) [address] [place] [address] Discharge Disposition: Discharge to home or self care 07/12/2024 5:44 PM CDT - 07/12/2024 11:59 PM CDT Hospital Encounter [facility] ([facility]) [address] [place] [address] Discharge Disposition: Discharge to home or self care 07/12/2024 5:43 PM CDT - 07/12/2024 11:59 PM CDT Hospital Encounter [facility] ([facility]) [address] [place] [address] Discharge Disposition: Discharge to home or self care 07/12/2024 Telephone [facility] Nephrology [address] [place] [address] for Advanced Medicine 5th [place] [address] [place] [address] Wilson Swift MD 07/11/2024 Telephone [facility] Transplant Liver [address] [facility] [address] Mailstop -[address] [place] [address] Dafne Dukes RN 07/11/2024 Telephone [facility] Transplant Liver [address] [facility] [address] Mailstop -[address] [place] [address] Yulisa Welch 07/10/2024 Telephone [facility] Transplant Liver [address] [facility] [address] Mailstop -[address] [place] [address] Liyah Kamara 07/09/2024 8:48 AM CDT - 07/09/2024 11:59 PM CDT Hospital Encounter [facility] ([facility]) [address] [place] [address] Discharge Disposition: Discharge to home or self care 07/09/2024 8:46 AM CDT - 07/09/2024 11:59 PM CDT Hospital Encounter [facility] ([facility]) [address] [place] [address] Discharge Disposition: Discharge to home or self care 07/09/2024 8:44 AM CDT - 07/09/2024 11:59 PM CDT Hospital Encounter [facility] ([facility]) [facility] [place] [address] Discharge Disposition: Discharge to home or self care 07/09/2024 Telephone [facility] Trans[facility] Liver [address] [facility] [address] Mailstop [phone] [place] [address] Dafne Dukes RN 07/09/2024 Telephone [facility] Trans[facility] Liver [address] [facility] [address] Mailstop [phone] [place] [address] Yulisa Welch from Last 3 Months Surgical History Surgery Date Site/Laterality Comments ME COLONOSCOPY FLX DX W/ROMAIN J SPEC WHEN [...] = 0.6 oz pur e alcohol) rare [facility] Utilities Answer Date Recorded In the past 12 months has e [employer], gas, oil, or water company threatened to [...] any clubs o r organizations such as gnosticist groups, unions, fraternal or athletic groups, or [...] time in the past 12 m [facility], were you homeless or living in a chcf (including now)? No 09/03/2024 Personal Safety Answer Date Recorded Have you ever been in or are you currently in a harmful physical or emotional relationship or is someone making you feel afraid or unsafe? Denies 09/02/2024 Comments No Sex and Gender Information Value Date Recorded Sex Assigned at Not on file Legal Sex Female 10:10 PM AIR MARSHAL Gender Identity Not on file Sexual [...] CDT HEPATITIS PANEL, ACUTE Routine 6:35 AM AIR MARSHAL from Last 3 Months or Most Recently Relevant to Health Maintenance Results * Imaging Lumbar/Sacral Facet Medial Branch Block Bilateral (58106) (09/25/2024 9:47 AM CDT) Narrative RAD_PACS_[facility] - 09/25/2024 9:47 AM CDT The images from this study are not interpreted by Radiology. Please refer to the physician's procedure / OR operative note. us Igor Graham MD IMG PAIN MGMT PROCEDURE S Final Result Performing Organization Address City/[facility]/ZIP Co de Phone Number [email or web address] * (ABNORMAL) [...] ORDERABLES Aniya l Result Performing Organization Address City/[facility]/ZIP Co de Phone Number [facility] [place] [address] * Tacrolimus level trough (09/06/2024 9:48 AM CDT) Tacrolimus trough 6.4 ng/mL Comment: Interpretive Data Testing performed by liquid chromatography-tandem mass spectrometry. Therapeutic concentrations vary depending on type of transplanted organ and time elapsed since transplant. Typical trough concentrations range from 5-15 ng/mL. This test was developed and its performance characteristics determined by the [facility] consistent with CLIA requirements. This test has not been cleared or approved by the [place] Food and Drug administration. Current interpretive data last reviewed 2019. Blood 09/06/2024 9:48 AM CDT 09/06/2024 10:15 AM CDT Lily Rico MD LAB BLOOD ORDERABLES Final Result [facility] [place] [address] * (ABNORMAL) Comprehensive metabolic panel (09/06/2024 9:48 AM CDT) Sodium 139 135 - 145 mmol/L Potassium, pl 4.1 3.3 - 4.9 mmol/L [facility] Comment:Hemolyzed; Potassium value may be falsely elevated by as much as 0.3-0.5 mmol/L. Suggest redraw and reanalysis. Chloride 102 97 - 110 mmol/L [facility] CO2 26 22 - 32 mmol/L [facility] Anion gap 11 2 - 15 mmol/L [facility] BUN 24 6 - 25 mg/dL [facility] Creatinine 2.04(H) 0.60 - 1.10 mg/dL [facility] Glucose 167 70 - 199 mg/dL [facility] Comment: Interpretive Data Fasting glucose >/= 126 [...] Calcium 8.8 8.5 - 10.3 mg/dL [facility] Bilirubin, total 0.6 0.1 - 1.2 mg/dL [facility] Protein, pl 6.1(L) 6.5 - 8.5 g/dL [facility] Albumin 3.5 3.5 - 5.0 g/dL [facility] Alk phos 241(H) 40 - 130 Units/L [facility] ALT 17 7 - 45 Units/L [facility] AST 41 10 - 45 Units/L [facility] Comment:Hemolyzed; result ma y be falsely elevated Blood 09/06/2024 9:48 AM CDT 09/06/2024 10:15 AM CDT us Britta Zhang MD LAB BLOOD ORDERABLES Aniya l Result [facility] [place] [address] * (ABNORMAL) eGFR (09/05/2024 10:47 AM CDT) [...] LAB BLOOD ORDERABLES Aniya andrez Result [facility] [place] [address] * Differential, auto (09/05/2024 10:47 AM CDT) [...] [facility] Neutrophil pct 67.8 % [facility] Comment: Interpretive Data Percent cell count reference ranges are not reported, since discordance with absolute values may lead to misinterpretation of CBC data. Current Interpretive Data was last revised on 2017. Imm gran pct 0.5 % [facility] Comment: Interpretive Data Percent cell count reference ranges are not reported, since discordance with absolute values may lead to misinterpretation of CBC data. Current Interpretive Data was last revised on 2017. Lymphocyte pct 23.5 % [facility] Comment: Interpretive Data Percent cell count reference ranges are not reported, since discordance with absolute values may lead to misinterpretation of CBC data. Current Interpretive Data was last revised on 2017. Monocyte pct 5.3 % [facility] Comment: Interpretive Data Percent cell count reference ranges are not reported, since discordance with absolute values may lead to misinterpretation of CBC data. Current Interpretive Data was last revised on 2017. Eosinophil pct 2.7 % [facility] Comment: Interpretive Data Percent cell count reference ranges are not reported, since discordance with absolute values may lead to misinterpretation of CBC data. Current Interpretive Data was last revised on 2017. Basophil pct 0.2 % [facility] Comment: Interpretive Data Percent cell count reference ranges are not reported, since discordance with absolute values may lead to misinterpretation of CBC data. Current Interpretive Data was last revised on 2017. Blood 09/05/2024 10:4 7 AM CDT 09/05/2024 11:03 AM CDT Britta Zhang MD LAB BLOOD ORDERABLES Aniya l Result Performing Organization Address [facility] Co de Phone Number [facility] [place] [address] * Tacrolimus level trough (09/05/2024 10:47 AM CDT) Pathologist [facility] Tacrolimus trough 6.2 ng/mL Comment: Interpretive Data Testing performed by liquid chromatography-tandem mass spectrometry. Therapeutic concentrations vary depending on type of transplanted organ and time elapsed since transplant. Typical trough concentrations range from 5-15 ng/mL. This test was developed and its performance characteristics determined by the [facility] consistent with CLIA requirements. This test has not been cleared or approved by the [place] Food and Drug administration. Current interpretive data last reviewed 2019. Blood 09/05/2024 10:4 7 AM CDT 09/05/2024 11:04 AM CDT Narrative [facility] - 09/05/2024 1:14 PM CDT Draw exactly 12 HOURS after last dose of tacrolimus was given and just BEFORE giving next dose Britta Zhang MD LAB BLOOD ORDERABLES Aniya l Result Performing Organization Address [facility] Co de Phone Number [facility] [place] [address] * (ABNORMAL) CBC with auto differential (09/05/2024 10:47 AM CDT) [facility] WBC 5.66 3.80 - 9.90 K/cumm Hgb 11.1(L) 11.9 - 15.5 g/dL [facility] Hct 31.6(L) 35.6 - 45.5 % [facility] Plt 115(L) 150 - 400 K/cumm [facility] MPV 11.4 9.1 - 12.3 fL [facility] RBC 2.81(L) 3.90 - 5.20 M/cumm [facility] MCV 112.5(H) 81.3 - 96.4 fL [facility] MCH 39.5(H) 27.1 - 33.3 pg [facility] MCHC 35.1 32.3 - 35.7 g/dL [facility] RDW CV 14.2 11.1 - 14.9 % [facility] RDW SD 59.0(H) 35.7 - 48.1 fL [facility] NRBC abs 0.00 0.00 - 0.01 K/cumm [facility] Blood 09/05/2024 10:4 7 AM CDT 09/05/2024 11:03 AM CDT Britta Zhang MD LAB BLOOD ORDERABLES Aniya l Result [facility] [place] [address] * (ABNORMAL) Comprehensive metabolic panel (09/05/2024 10:47 AM CDT) Sodium 143 135 - 145 mmol/L Potassium, pl 4.2 3.3 - 4.9 mmol/L [facility] Chloride 102 97 - 110 mmol/L [facility] CO2 28 22 - 32 mmol/L [facility] Anion gap 13 2 - 15 mmol/L [facility] BUN 28(H) 6 - 25 mg/dL [facility] Creatinine 2.49(H) 0.60 - 1.10 mg/dL [facility] Glucose 127 70 - 199 mg/dL [facility] Comment: Interpretive Data Fasting glucose >/= 126 [...] BJ AST 27 10 - 45 Units/L [facility] Blood 09/05/2024 10:4 7 AM CDT 09/05/2024 11:03 AM CDT Britta Zhang MD LAB BLOOD ORDERABLES Aniya l Result [facility] [place] [address] * (ABNORMAL) eGFR (09/04/2024 5:03 AM CDT) [...] LAB BLOOD ORDERABLES Aniya andrez Result [facility] [place] [address] * Differential, auto (09/04/2024 5:03 AM CDT) Neutrophil abs 2.68 1.50 - 6.50 K/cumm Imm gran abs 0.01 0.00 - 0.10 K/cumm [facility] Lymphocyte abs 1.03 0.80 - 3.30 K/cumm [facility] Monocyte abs 0.23 0.20 - 0.80 K/cumm [facility] Eosinophil abs 0.09 0.00 - 0.50 K/cumm [facility] Basophil abs 0.00 0.00 - 0.10 K/cumm [facility] Neutrophil pct 66.4 % [facility] Comment: Interpretive Data Percent cell count reference ranges are not reported, since discordance with absolute values may lead to misinterpretation of CBC data. Current Interpretive Data was last revised on 2017. Imm gran pct 0.2 % [facility] Comment: Interpretive Data Percent cell count reference ranges are not reported, since discordance with absolute values may lead to misinterpretation of CBC data. Current Interpretive Data was last revised on 2017. Lymphocyte pct 25.5 % [facility] Comment: Interpretive Data Percent cell count reference ranges are not reported, since discordance with absolute values may lead to misinterpretation of CBC data. Current Interpretive Data was last revised on 2017. Monocyte pct 5.7 % [facility] Comment: Interpretive Data Percent cell count reference ranges are not reported, since discordance with absolute values may lead to misinterpretation of CBC data. Current Interpretive Data was last revised on 2017. Eosinophil pct 2.2 % [facility] Comment: Interpretive Data Percent cell count reference ranges are not reported, since discordance with absolute values may lead to misinterpretation of CBC data. Current Interpretive Data was last revised on 2017. Basophil pct 0.0 % [facility] Comment: Interpretive Data Percent cell count reference ranges are not reported, since discordance with absolute values may lead to misinterpretation of CBC data. Current Interpretive Data was last revised on 2017. Blood 09/04/2024 5:03 AM CDT 09/04/2024 5:10 AM CDT Britta Zhang MD LAB BLOOD ORDERABLES Aniya l Result [facility] [place] [address] * Tacrolimus level trough (09/04/2024 5:03 AM CDT) Tacrolimus trough 10.9 ng/mL Comment: Interpretive Data Testing performed by liquid chromatography-tandem mass spectrometry. Therapeutic concentrations vary depending on type of transplanted organ and time elapsed since transplant. Typical trough concentrations range from 5-15 ng/mL. This test was developed and its performance characteristics determined by the [facility] consistent with CLIA requirements. This test [...] MD LAB BLOOD ORDERABLES Aniya l Result [facility] [place] [address] * (ABNORMAL) CBC with auto differential (09/04/2024 5:03 AM CDT) WBC 4.04 3.80 - 9.90 K/cumm Hgb 11.8(L) 11.9 - 15.5 g/dL [facility] Hct 32.9(L) 35.6 - 45.5 % [facility] Plt 66(L) 150 - 400 K/cumm [facility] MPV 12.0 9.1 - 12.3 fL [facility] RBC 2.96(L) 3.90 - 5.20 M/cumm [facility] MCV 111.1(H) 81.3 - 96.4 fL [facility] MCH 39.9(H) 27.1 - 33.3 pg [facility] MCHC 35.9(H) 32.3 - 35.7 g/dL [facility] RDW CV 14.0 11.1 - 14.9 % [facility] RDW SD 56.5(H) 35.7 - 48.1 fL [facility] NRBC abs 0.00 0.00 - 0.01 K/cumm [facility] Blood 09/04/2024 5:03 AM CDT 09/04/2024 5:10 AM CDT us Britta Zhang MD LAB BLOOD ORDERABLES Aniya maguire Result [facility] [place] [address] * (ABNORMAL) Comprehensive metabolic panel (09/04/2024 5:03 AM CDT) Sodium 137 135 - 145 mmol/L Potassium, pl 4.2 3.3 - 4.9 mmol/L [facility] Chloride 100 97 - 110 mmol/L [facility] CO2 26 22 - 32 mmol/L [facility] Anion gap 11 2 - 15 mmol/L [facility] BUN 30(H) 6 - 25 mg/dL [facility] Creatinine 2.87(H) 0.60 - 1.10 mg/dL [facility] Glucose 153 70 - 199 mg/dL [facility] Comment: Interpretive Data Fasting glucose >/= 126 [...] Calcium 8.5 8.5 - 10.3 mg/dL [facility] Bilirubin, total 0.8 0.1 - 1.2 mg/dL [facility] Protein, pl 6.6 6.5 - 8.5 g/dL [facility] Albumin 3.5 3.5 - 5.0 g/dL [facility] Alk phos 240(H) 40 - 130 Units/L [facility] ALT 12 7 - 45 Units/L [facility] AST 31 10 - 45 Units/L [facility] Blood 09/04/2024 5:03 AM CDT 09/04/2024 5:10 AM CDT us Britta Zhang MD LAB BLOOD ORDERABLES Aniya maguire Result [facility] [place] [address] * (ABNORMAL) eGFR (09/03/2024 5:21 AM CDT) [...] LAB BLOOD ORDERABLES Aniya andrez Result [facility] [place] [address] * Differential, auto (09/03/2024 5:21 AM CDT) Neutrophil abs 3.79 1.50 - 6.50 K/cumm Imm gran abs 0.03 0.00 - 0.10 K/cumm [facility] Lymphocyte abs 0.84 0.80 - 3.30 K/cumm [facility] Monocyte abs 0.25 0.20 - 0.80 K/cumm [facility] Eosinophil abs 0.05 0.00 - 0.50 K/cumm [facility] Basophil abs 0.00 0.00 - 0.10 K/cumm [facility] Neutrophil pct 76.5 % [facility] Comment: Interpretive Data Percent cell count reference ranges are not reported, since discordance with absolute values may lead to misinterpretation of CBC data. Current Interpretive Data was last revised on 2017. Imm gran pct 0.6 % [facility] Comment: Interpretive Data Percent cell count reference ranges are not reported, since discordance with absolute values may lead to misinterpretation of CBC data. Current Interpretive Data was last revised on 2017. Lymphocyte pct 16.9 % [facility] Comment: Interpretive Data Percent cell count reference ranges are not reported, since discordance with absolute values may lead to misinterpretation of CBC data. Current Interpretive Data was last revised on 2017. Monocyte pct 5.0 % [facility] Comment: Interpretive Data Percent cell count reference ranges are not reported, since discordance with absolute values may lead to misinterpretation of CBC data. Current Interpretive Data was last revised on 2017. Eosinophil pct 1.0 % [facility] Comment: Interpretive Data Percent cell count reference ranges are not reported, since discordance with absolute values may lead to misinterpretation of CBC data. Current Interpretive Data was last revised on 2017. Basophil pct 0.0 % [facility] Comment: Interpretive Data Percent cell count reference ranges are not reported, since discordance with absolute values may lead to misinterpretation of CBC data. Current Interpretive Data was last revised on 2017. Blood 09/03/2024 5:21 AM CDT 09/03/2024 5:31 AM CDT Britta Zhang MD LAB BLOOD ORDERABLES Aniya l Result Performing Organization Address [facility] Co de Phone Number [facility] [place] [address] * Tacrolimus level trough (09/03/2024 5:21 AM CDT) Tacrolimus trough 17.8 ng/mL Comment: Interpretive Data Testing performed by liquid chromatography-tandem mass spectrometry. Therapeutic concentrations vary depending on type of transplanted organ and time elapsed since transplant. Typical trough concentrations range from 5-15 ng/mL. This test was developed and its performance characteristics determined by the [facility] consistent with CLIA requirements. This test has not been cleared or approved by the US Food and Drug administration. Current interpretive data last reviewed 2019. Blood 09/03/2024 5:21 AM CDT 09/03/2024 5:31 AM CDT Narrative [facility] - 09/03/2024 9:19 AM CDT Draw exactly 12 HOURS after last dose of tacrolimus was given and just BEFORE giving next dose Britta Zhang MD LAB BLOOD ORDERABLES Aniya l Result Performing Organization Address [facility] Co de Phone Number [facility] [place] [address] * (ABNORMAL) CBC with auto differential (09/03/2024 5:21 AM CDT) [facility] WBC 4.96 3.80 - 9.90 K/cumm Hgb 11.3(L) 11.9 - 15.5 g/dL [facility] Hct 30.7(L) 35.6 - 45.5 % [facility] Plt 83(L) 150 - 400 K/cumm [facility] MPV 11.0 9.1 - 12.3 fL [facility] RBC 2.84(L) 3.90 - 5.20 M/cumm [facility] MCV 108.1(H) 81.3 - 96.4 fL [facility] MCH 39.8(H) 27.1 - 33.3 pg [facility] MCHC 36.8(H) 32.3 - 35.7 g/dL [facility] RDW CV 13.9 11.1 - 14.9 % [facility] RDW SD 54.4(H) 35.7 - 48.1 fL [facility] NRBC abs 0.00 0.00 - 0.01 K/cumm [facility] Blood 09/03/2024 5:21 AM CDT 09/03/2024 5:31 AM CDT us Britta Zhang MD LAB BLOOD ORDERABLES Aniya maguire Result [facility] [place] [address] * (ABNORMAL) Comprehensive metabolic panel (09/03/2024 5:21 AM CDT) [facility] Sodium 138 135 - 145 mmol/L Potassium, pl 4.7 3.3 - 4.9 mmol/L [facility] Chloride 101 97 - 110 mmol/L [facility] CO2 29 22 - 32 mmol/L [facility] Anion gap 8 2 - 15 mmol/L [facility] BUN 29(H) 6 - 25 mg/dL [facility] Creatinine 2.92(H) 0.60 - 1.10 mg/dL [facility] Glucose 113 70 - 199 mg/dL [facility] Comment: Interpretive Data Fasting glucose >/= 126 [...] Calcium 9.2 8.5 - 10.3 mg/dL [facility] Bilirubin, total 1.1 0.1 - 1.2 mg/dL [facility] Protein, pl 6.2(L) 6.5 - 8.5 g/dL [facility] Albumin 3.4(L) 3.5 - 5.0 g/dL [facility] Alk phos 233(H) 40 - 130 Units/L [facility] ALT 13 7 - 45 Units/L [facility] AST 22 10 - 45 Units/L [facility] Blood 09/03/2024 5:21 AM CDT 09/03/2024 5:31 AM CDT Britta Zhang MD LAB BLOOD ORDERABLES Aniya l Result [facility] [place] [address] * BK virus PCR quantitative Blood (09/02/2024 12:21 PM CDT) [facility] BKV DNA result, pl Not Detected [facility] Comment: The quantifiable range of this assay is 21.5 IU/mL to 100,000,000 IU/mL (1.33 log IU/mL to 8.00 log IU/mL). Testing was performed by the [employer] BKV Quantatitive Test version 2.0 ([employer] Testing performed at [facility] Current Interpretive Data was last revised on 2021. Blood 09/02/2024 12:2 1 PM CDT 09/02/2024 12:52 PM CDT Britta Zhang MD LAB MICROBIOLOGY - GENERA L ORDERABLES Final Result Performing Organization Address [facility] Co de Phone Number [facility] Department [place] [address] [facility] * HLA Donor Specific Antibody [...] ORDERABLES Aniya l Result Performing Organization Address [facility] Co de Phone Number [email or web address] * Collection Task for HLA Antibody Screen (09/02/2024 12:21 PM CDT) HLA Antibody Screen By Single Antigen Received Blood 09/02/2024 12:2 1 PM CDT 09/03/2024 10:59 AM CDT Britta Zhang MD LAB BLOOD ORDERABLES Aniya l Result [facility] [place] [address] * Cytomegalovirus (CMV) DNA PCR, quantitative Blood (09/02/2024 12:21 PM CDT) CMV DNA Not Detected [facility] Comment: Interpretive Data: The quantifiable range of this assay is 34 IUnits/mL to 10,000,000 IUnits/mL (1.53 log IUnits/mL to 7.0 log IUnits/mL). Testing was performed by the JOHNNY 6800 CMV Test ([employer] Testing performed at [facility]. Current interpretive data was last revised on 2020. Blood 09/02/2024 12:2 1 PM CDT 09/02/2024 12:52 PM CDT us Britta Zhang MD LAB MICROBIOLOGY - GENERA L ORDERABLES Final Result [facility] [address] [facility] [address] [place] [address] [facility] * (ABNORMAL) eGFR (09/02/2024 12:21 PM CDT) [facility] eGFR 20(L) >=60 mL/min/1. 73 m2 Comment: [...] LAB BLOOD ORDERABLES Aniya l Result [facility] [place] [address] * Blood culture Blood (09/02/2024 12:21 PM CDT) Report Final Report: No growth Blood 09/02/2024 12:2 1 PM CDT 09/02/2024 1:40 PM CDT Narrative [facility] - 09/06/2024 4:00 PM CDT [...] performance characteristics have been verified by the [facility]. For questions about this culture, contact the Microbiology Laboratory at [phone]. Interpretive data was last revised on 24. Britta Zhang MD LAB MICROBIOLOGY - GENERA L ORDERABLES Final Result [facility] [address] [place] [address] * Blood culture Blood (09/02/2024 12:21 PM CDT) Report Final Report: No growth Blood 09/02/2024 12:2 1 PM CDT 09/02/2024 1:40 PM CDT Narrative [facility] - 09/06/2024 4:00 PM CDT [...] performance characteristics have been verified by the [facility]. For questions about this culture, contact the Microbiology Laboratory at [phone]. Interpretive data was last revised on 24. us Britta Zhang MD LAB MICROBIOLOGY - GENERA L ORDERABLES Final Result [facility] [place] [address] * (ABNORMAL) Renal function panel (09/02/2024 12:21 PM CDT) Sodium 137 135 - 145 mmol/L Potassium, pl 3.9 3.3 - 4.9 mmol/L [facility] Chloride 97 97 - 110 mmol/L [facility] CO2 31 22 - 32 mmol/L [facility] Anion gap 9 2 - 15 mmol/L [facility] BUN 28(H) 6 - 25 mg/dL [facility] Creatinine 2.89(H) 0.60 - 1.10 mg/dL [facility] Glucose 162 70 - 199 mg/dL [facility] Comment: Interpretive Data Fasting glucose >/= 126 [...] 2022. Calcium 9.7 8.5 - 10.3 mg/dL [facility] Phosphorus, pl 4.1 2.3 - 4.5 mg/dL [facility] Albumin 3.5 3.5 - 5.0 g/dL [facility] Blood 09/02/2024 12:2 1 PM CDT 09/02/2024 12:42 PM CDT us Britta Zhang MD LAB BLOOD ORDERABLES Aniya l Result [facility] [place] [address] * (ABNORMAL) eGFR (09/02/2024 5:16 AM CDT) [...] Valiente MD LAB BLOOD ORDERABLES Final Result [facility] [place] [address] * Differential, auto (09/02/2024 5:16 AM CDT) Neutrophil abs 3.97 1.50 - 6.50 K/cumm Imm gran abs 0.02 0.00 - 0.10 K/cumm [facility] Lymphocyte abs 1.10 0.80 - 3.30 K/cumm [facility] Monocyte abs 0.24 0.20 - 0.80 K/cumm [facility] Eosinophil abs 0.11 0.00 - 0.50 K/cumm [facility] Basophil abs 0.01 0.00 - 0.10 K/cumm [facility] Neutrophil pct 72.8 % [facility] Comment: Interpretive Data Percent cell count reference ranges are not reported, since discordance with absolute values may lead to misinterpretation of CBC data. Current Interpretive Data was last revised on 2017. Imm gran pct 0.4 % [facility] Comment: Interpretive Data Percent cell count reference ranges are not reported, since discordance with absolute values may lead to misinterpretation of CBC data. Current Interpretive Data was last revised on 2017. Lymphocyte pct 20.2 % [facility] Comment: Interpretive Data Percent cell count reference ranges are not reported, since discordance with absolute values may lead to misinterpretation of CBC data. Current Interpretive Data was last revised on 2017. Monocyte pct 4.4 % [facility] Comment: Interpretive Data Percent cell count reference ranges are not reported, since discordance with absolute values may lead to misinterpretation of CBC data. Current Interpretive Data was last revised on 2017. Eosinophil pct 2.0 % [facility] Comment: Interpretive Data Percent cell count reference ranges are not reported, since discordance with absolute values may lead to misinterpretation of CBC data. Current Interpretive Data was last revised on 2017. Basophil pct 0.2 % [facility] Comment: Interpretive Data Percent cell count reference ranges are not reported, since discordance with absolute values may lead to misinterpretation of CBC data. Current Interpretive Data was last revised on 2017. Blood 09/02/2024 5:16 AM CDT 09/02/2024 5:32 AM CDT Bailee Valiente MD LAB BLOOD ORDERABLES Final Result Performing Organization Address [facility] Co de Phone Number [facility] Department [place] [address] * Tacrolimus level trough (09/02/2024 5:16 AM CDT) [facility] Signature Tacrolimus trough 17.0 ng/mL Comment: Interpretive Data Testing performed by liquid chromatography-tandem mass spectrometry. Therapeutic concentrations vary depending on type of transplanted organ and time elapsed since transplant. Typical trough concentrations range from 5-15 ng/mL. This test was developed and its performance characteristics determined by the [facility] consistent with CLIA requirements. This test has not been cleared or approved by the [place] Food and Drug administration. Current interpretive data last reviewed 2019. Blood 09/02/2024 5:16 AM CDT 09/02/2024 5:32 AM CDT us Britta Zhang MD LAB BLOOD ORDERABLES Aniya l Result Performing Organization Address [facility] Co de Phone Number [facility] Department [place] [address] * (ABNORMAL) CBC with auto differential (09/02/2024 5:16 AM CDT) [facility] WBC 5.45 3.80 - 9.90 K/cumm Hgb 11.7(L) 11.9 - 15.5 g/dL [facility] Hct 32.3(L) 35.6 - 45.5 % [facility] Plt 98(L) 150 - 400 K/cumm [facility] MPV 11.4 9.1 - 12.3 fL [facility] RBC 2.95(L) 3.90 - 5.20 M/cumm [facility] MCV 109.5(H) 81.3 - 96.4 fL [facility] MCH 39.7(H) 27.1 - 33.3 pg [facility] MCHC 36.2(H) 32.3 - 35.7 g/dL [facility] RDW CV 13.9 11.1 - 14.9 % [facility] RDW SD 56.6(H) 35.7 - 48.1 fL [facility] NRBC abs 0.00 0.00 - 0.01 K/cumm [facility] Blood 09/02/2024 5:16 AM CDT 09/02/2024 5:32 AM CDT us Bailee Valiente MD LAB BLOOD ORDERABLES Final Result [facility] [place] [address] * (ABNORMAL) Comprehensive metabolic panel (09/02/2024 5:16 AM CDT) [facility] Sodium 137 135 - 145 mmol/L Potassium, pl 4.1 3.3 - 4.9 mmol/L [facility] Chloride 98 97 - 110 mmol/L [facility] CO2 32 22 - 32 mmol/L [facility] Anion gap 7 2 - 15 mmol/L [facility] BUN 29(H) 6 - 25 mg/dL [facility] Creatinine 3.05(H) 0.60 - 1.10 mg/dL [facility] Glucose 185 70 - 199 mg/dL [facility] Comment: Interpretive Data Fasting glucose >/= 126 [...] Calcium 9.0 8.5 - 10.3 mg/dL [facility] Bilirubin, total 1.0 0.1 - 1.2 mg/dL [facility] Protein, pl 6.3(L) 6.5 - 8.5 g/dL [facility] Albumin 3.8 3.5 - 5.0 g/dL [facility] Alk phos 223(H) 40 - 130 Units/L [facility] ALT 11 7 - 45 Units/L [facility] AST 24 10 - 45 Units/L [facility] Blood 09/02/2024 5:16 AM CDT 09/02/2024 5:32 AM CDT Bailee Valiente MD LAB BLOOD ORDERABLES Final Result [facility] [place] [address] * Troponin I high-sensitivity 2-hour (09/01/2024 2:58 AM CDT) Trop I hs 5 <=17 ng/L Comment: Interpretive Data For further hscTnI resources including the diagnostic algorithm and an aid in interpretation, copy and paste this link: [email or web address].testcatalog.org/[email or web address] Current Interpretive Data last revised 2019. Trop I hs delta 0 ng/L [facility] Trop I hs interp Insignificant [facility] H Blood 09/01/2024 2:58 AM CDT 09/01/2024 3:13 AM CDT us Diana Cassidy MD LAB BLOOD ORDERABLES Fi nal Result [facility] [place] [address] * ECG 12-LEAD (09/01/2024 2:53 AM CDT) Narrative [facility] - 09/01/2024 2:53 AM CDT Elisha Avila MD 09/01/2024 3:24 AM ECG 12 lead Date/Time: 09/01/2024 2:53 AM Performed by: Elisha Avila MD Authorized by: Diana Cassidy MD Diana Cassidy MD ECG ORDERABLES Final R esult Performing Organization Address [facility] Co de Phone Number [facility] * XR Chest PA Lateral 2 [...] and read back by: Flower Moser MD ([phone]) on 09/02/2024 03:01:57 by: Radu Helm MT Direct Specimen Exam Stain: Gram Positive Cocci in clusters Time to culture positivity (anaerobic media): 21.4 hours Notification of: Gram Positive Cocci in clusters called to and read back by: Flower Moser MD ([phone]) on 09/02/2024 01:01:22 by: Radu Helm MT [facility] Report Final Report: Staphylococcus epidermidis Single blood culture positive for this microorganism. Isolate is a possible contaminant. If a similar isolate is recovered from a second blood culture collected within 3 days of this culture, both will be evaluated and, if determined to be the same species, antimicrobial susceptibility testing will be performed. (.) [facility] Organism STAPHYLOCOCCUS EPIDERMIDIS [facility] Blood 09/01/2024 2:18 AM CDT 09/01/2024 2:43 AM CDT Narrative [facility] - 09/06/2024 12:48 PM CDT From a [...] performance characteristics have been verified by the [facility]. For questions about this culture, contact the Microbiology Laboratory at [phone]. Interpretive data was last revised on 24. us Diana Cassidy MD LAB MICROBIOLOGY - GENE RAL ORDERABLES Final Result [facility] [address] [facility] [place] [address] * US Renal Transplant W Dopplers (09/01/2024 [...] Soto Mena M.D., Ph.D Diana Cassidy MD [facility] PROCEDURES Final Result * (ABNORMAL) Respiratory pathogen panel Nasopharyngeal (09/01/2024 12:58 AM CDT) Influenza A RNA Not Detected Not Detected Influenza B RNA Not Detected Not Detected [facility] RSV RNA Not Detected Not Detected [facility] COVID-19 RNA Not Detected Not Detected [facility] Coronavirus 229E RNA Not Detected Not Detected [facility] Coronavirus HKU1 RNA Not Detected Not Detected [facility] Coronavirus NL63 RNA Not Detected Not Detected [facility] Coronavirus OC43 RNA Not Detected Not Detected [facility] Adenovirus DNA Not Detected Not Detected [facility] Metapneumovirus RNA Not Detected Not Detected [facility] Rhinovirus/Enterov irus RNA Detected(A) Not Detected [facility] Parainfluenza 1 RNA Not Detected Not Detected [facility] Parainfluenza 2 RNA Not Detected Not Detected [facility] Parainfluenza 3 RNA Not Detected Not Detected [facility] Parainfluenza 4 RNA Not Detected Not Detected [facility] B. pertussis DNA Not Detected Not Detected [facility] B. parapertussis DNA Not Detected Not Detected [facility] C. pneumoniae DNA Not Detected Not Detected [facility] M. pneumoniae DNA Not Detected Not Detected [facility] Nasopharyngeal 09/01/2024 12 :58 AM CDT 09/01/2024 2:52 AM CDT Narrative [facility] - 09/01/2024 3:48 AM CDT Is the Patient experiencing symptoms consistent with COVID?->Yes Surveillance testing for transplant patient?->No Interpretive Data The SpunLive FilmArray Respiratory Panel (RP2.1) assay is a [...] assay has FDA clearance for testing of WALLPAPER PRINTER swabs. The performance of additional specimen types has been assessed by the performing laboratory. The performance characteristics of this assay have been determined by [facility] Molecular Infectious Disease Laboratory. Current interpretive data was last revised on 21. Diana Cassidy MD LAB MICROBIOLOGY - [facility] ORDERABLES Final Result [facility] [place] [address] * Troponin I high-sensitivity series (baseline, 2hr, [...] LAB BLOOD ORDERABLES Fi nal Result [facility] [place] [address] * Sepsis Lactate w/ Reflex (09/01/2024 12:57 AM CDT) Sepsis Lactate 1.8 0.7 - 2.0 mmol/L Blood 09/01/2024 12:5 7 AM CDT 09/01/2024 1:14 AM CDT Diana Cassidy MD LAB BLOOD ORDERABLES Fi nal Result Performing Organization Address City/[facility] Co de Phone Number [facility] [place] [address] * (ABNORMAL) eGFR (09/01/2024 12:57 AM CDT) [...] AM CDT 09/01/2024 1:20 AM CDT Result [facility] Diana Cassidy MD LAB BLOOD ORDERABLES Fi nal Result [facility] [place] [address] * Differential, auto (09/01/2024 12:57 AM CDT) Neutrophil abs 4.42 1.50 - 6.50 K/cumm Imm gran abs 0.03 0.00 - 0.10 K/cumm [facility] Lymphocyte abs 1.17 0.80 - 3.30 K/cumm [facility] Monocyte abs 0.38 0.20 - 0.80 K/cumm [facility] Eosinophil abs 0.10 0.00 - 0.50 K/cumm [facility] Basophil abs 0.02 0.00 - 0.10 K/cumm [facility] Neutrophil pct 72.3 % [facility] Comment: Interpretive Data Percent cell count reference ranges are not reported, since discordance with absolute values may lead to misinterpretation of CBC data. Current Interpretive Data was last revised on 2017. Imm gran pct 0.5 % [facility] Comment: Interpretive Data Percent cell count reference ranges are not reported, since discordance with absolute values may lead to misinterpretation of CBC data. Current Interpretive Data was last revised on 2017. Lymphocyte pct 19.1 % [facility] Comment: Interpretive Data Percent cell count reference ranges are not reported, since discordance with absolute values may lead to misinterpretation of CBC data. Current Interpretive Data was last revised on 2017. Monocyte pct 6.2 % [facility] Comment: Interpretive Data Percent cell count reference ranges are not reported, since discordance with absolute values may lead to misinterpretation of CBC data. Current Interpretive Data was last revised on 2017. Eosinophil pct 1.6 % [facility] Comment: Interpretive Data Percent cell count reference ranges are not reported, since discordance with absolute values may lead to misinterpretation of CBC data. Current Interpretive Data was last revised on 2017. Basophil pct 0.3 % [facility] Comment: Interpretive Data Percent cell count reference ranges are not reported, since discordance with absolute values may lead to misinterpretation of CBC data. Current Interpretive Data was last revised on 2017. Blood 09/01/2024 12:5 7 AM CDT 09/01/2024 1:20 AM CDT Diana Cassidy MD LAB BLOOD ORDERABLES Fi nal Result Performing Organization Address City/[facility]/ZIP Co de Phone Number [facility] [place] [address] * (ABNORMAL) Urinalysis reflex to microscopic and culture Urine, bladder (09/01/2024 12:57 AM CDT) Color, ur Yellow Yellow Clarity, ur Clear Clear [facility] Specific gravity, ur 1.020 1.003 - 1.030 [facility] pH, urine 5.5 [facility] Comment: Interpretive Data U rine pH is affected by diet, medications, systemic acid-base disturbances, and renal tubular function. pH may affect urinary stone formation. For example, urine pH below 6.0 may help reduce the tendency for calcium phosphate stones and pH greater than 6.0 may reduce the tendency for uric acid stone formation. Source: [facility] Current Interpretive Data was last revised on 2017 Protein, ur ql Trace Negative [facility] Glucose, ur ql Negative Negative [facility] Ketones, ur Trace Negative [facility] Bilirubin, ur Negative Negative [facility] Blood, ur Negative Negative [facility] Urobilinogen, ur 2.0(A) <2.0 mg/dL [facility] Nitrite, ur Negative Negative [facility] Leukocyte esterase, ur Negative Negative [facility] UA reflex comment Reflex conditions for microscopic UA and culture not met. [facility] Urine, bladder 09/01/2024 12 :57 AM CDT 09/01/2024 1:14 AM CDT Diana Cassidy MD LAB MICROBIOLOGY - GENE RAL ORDERABLES Final Result Performing Organization Address City/[facility]/ZIP Co de Phone Number [facility] [place] [address] * (ABNORMAL) CBC with auto differential (09/01/2024 12:57 AM CDT) WBC 6.12 3.80 - 9.90 K/cumm Hgb 12.7 11.9 - 15.5 g/dL [facility] Hct 35.2(L) 35.6 - 45.5 % [facility] Plt 115(L) 150 - 400 K/cumm [facility] MPV 11.0 9.1 - 12.3 fL [facility] RBC 3.20(L) 3.90 - 5.20 M/cumm [facility] MCV 110.0(H) 81.3 - 96.4 fL [facility] MCH 39.7(H) 27.1 - 33.3 pg [facility] MCHC 36.1(H) 32.3 - 35.7 g/dL [facility] RDW CV 14.2 11.1 - 14.9 % [facility] RDW SD 57.3(H) 35.7 - 48.1 fL [facility] NRBC abs 0.00 0.00 - 0.01 K/cumm [facility] Blood 09/01/2024 12:5 7 AM CDT 09/01/2024 1:20 AM CDT Diana Cassidy MD LAB BLOOD ORDERABLES Fi nal Result [facility] [place] [address] * Tacrolimus level random (09/01/2024 12:57 AM CDT) Tacrolimus random 23.8 ng/mL Comment: Interpretive Data Testing performed by liquid chromatography-tandem mass spectrometry. Therapeutic concentrations vary depending on type of transplanted organ and time elapsed since transplant. Typical trough concentrations range from 5-15 ng/mL. This test was developed and its performance characteristics determined by the [facility] consistent with CLIA requirements. This test has not been cleared or approved by the [place] Food and Drug administration. Current interpretive data last reviewed 2019. Blood 09/01/2024 12:5 7 AM CDT 09/01/2024 1:20 AM CDT Diana Cassidy MD LAB BLOOD ORDERABLES Fi nal Result Performing Organization Address [facility]/ZIP Co de Phone Number [facility] Department [place] [address] * Blood culture Blood (09/01/2024 12:57 AM [...] performance characteristics have been verified by the [facility]. For questions about this culture, contact the Microbiology Laboratory at [phone]. Interpretive data was last revised on 24. Diana Cassidy MD LAB MICROBIOLOGY - GENE RAL ORDERABLES Final Result Performing Organization Address [facility] [place] [address] * Phosphorus (09/01/2024 12:57 AM CDT) [facility] Phosphorus, pl 2.9 2.3 - 4.5 mg/dL Blood 09/01/2024 12:5 7 AM CDT 09/01/2024 1:20 AM CDT Diana Cassidy MD LAB BLOOD ORDERABLES Fi nal Result Performing Organization Address City/[facility]/[place] [address] * Magnesium (09/01/2024 12:57 AM CDT) [facility] Magnesium 1.5 1.4 - 2.5 mg/dL Blood 09/01/2024 12:5 7 AM CDT 09/01/2024 1:20 AM CDT Diana Cassidy MD LAB BLOOD ORDERABLES Fi nal Result Performing Organization Address City/[facility] [place] [address] * Lipase (09/01/2024 12:57 AM CDT) [facility] Lipase 19 10 - 99 Units/L Blood 09/01/2024 12:5 7 AM CDT 09/01/2024 1:20 AM CDT Diana Cassidy MD LAB BLOOD ORDERABLES Fi nal Result Performing Organization Address City/[facility]/[place] [address] * (ABNORMAL) Comprehensive metabolic panel (09/01/2024 12:57 AM CDT) Sodium 138 135 - 145 mmol/L Potassium, pl 4.5 3.3 - 4.9 mmol/L [facility] Comment:Hemolyzed; Potassium value may be falsely elevated by as much as 0.3-0.5 mmol/L. Suggest redraw and reanalysis. Chloride 105 97 - 110 mmol/L [facility] CO2 24 22 - 32 mmol/L [facility] Anion gap 9 2 - 15 mmol/L [facility] BUN 21 6 - 25 mg/dL [facility] Creatinine 2.34(H) 0.60 - 1.10 mg/dL [facility] Glucose 89 70 - 199 mg/dL [facility] Comment: Interpretive Data Fasting glucose >/= 126 [...] Calcium 8.7 8.5 - 10.3 mg/dL [facility] Bilirubin, total 1.1 0.1 - 1.2 mg/dL [facility] Protein, pl 7.1 6.5 - 8.5 g/dL [facility] Albumin 3.9 3.5 - 5.0 g/dL [facility] Alk phos 257(H) 40 - 130 Units/L [facility] ALT 14 7 - 45 Units/L [facility] AST 37 10 - 45 Units/L [facility] Comment:Hemolyzed; result ma y be falsely elevated Blood 09/01/2024 12:5 7 AM CDT 09/01/2024 1:20 AM CDT us Diana Cassidy MD LAB BLOOD ORDERABLES Fi nal Result [facility] [place] [address] * Surgical pathology (08/02/2024 9:18 AM CDT) Tissue (Miscellaneous) 08/02/2024 9:18 AM CDT 08/02/2024 9:18 AM CDT Narrative [facility] - 08/14/2024 2:01 PM CDT EPIC results best viewed via link to PDF [facility] Pathology Consult Service [address], [address], [place] [address] Note to Patients: This report may contain [...] SURGICAL PATHOLOGY REPORT * Consult Report * [facility] is providing an additional review of previously collected tissue. FINAL Patient Name: MISHA BROWNE Address: [address] [place], [place] [id number] Gender: F : 1980 (Age: 43) [facility] #: [id number] Patient Type: WILL Location: UNKNOWN Taken: 08/02/2024 Received: 08/02/2024 Accessioned: 08/05/2024 Reported: 08/14/2024 Physician(s): Beatriz Lee M.D. [facility] Department of Pathology [address] [facility] Room [address] [place] [address] P: [phone] F: [phone] Diagnosis: Consult material received from [place], [place] (OSC: [id number]; 11/17/2023) A. 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 Course was complicated by biopsy [...] show moderate inflammatory infiltrate. There is patchy cjoz-wh-sojelwey tubulitis. Small arteries and arterioles show mild [...] Received for review are ten slides labeled [id number], and nine slides labeled [id number], accompanied by a corresponding pathology report. The material originates from [facility], [place], [place]. Selected slide(s) may be digitally scanned [...] occasional mononuclear cells Arteriolar hyalinosis (ah): ah1 [id number]-[id number] PAS-positive hyaline thickening in at least one arteriole Polyomavirus Nephropathy: Negative for Polyomavirus C4d scoring: c4d0 Negative ptcml (PTC multilayering) (requires EM): N/A - EM not performed By this signature, I attest that the above diagnosis is based upon my personal examination of the slides(and/or other material). sEthela Patton M.D. Darrell Cabrera M.D. Any testing required for diagnostic purposes was performed in the Department of Pathology and Immunology at [facility], [address] [place] [address] CLIA # [id number] The performance characteristics of the testing cited in this report (if any) were determined by the [facility] Department of Pathology and Immunology [facility], as part of an ongoing quality systems engineer program and in compliance with federally [...] and the performance characteristics determined by the [facility], [facility] Department of Pathology and Immunology. It has not been cleared or approved by the U.S. Food and Drug Administration. Any test designated as LDT was developed and its performance characteristics determined by [facility]. It has not been cleared or approved by the FDA. This test is used for clinical purposes and should not be regarded as investigational or for research. Report images and/or scanned reports, if included, only viewable in PDF version of report. Beatriz Lee MD LAB PATHOLOGY ORDERA BLES Final Result [facility] [address] [place] [address] * XR Scoliosis 6 or More Views [...] only and have not been reviewed by [facility]. There will be no report generated by a [facility] Radiologist. Narrative [facility] - 07/12/2024 5:48 PM CDT EXAMINATION: Images For Reference Purposes Only Jessee Morton MD IMG CT PROCEDURES Final Re sult Performing Organization Address [facility] de Phone Number [email or web address] * Neuro CT Outside Reference (07/12/2024 5:46 PM CDT) Impressions [facility] - 07/12/2024 5:46 PM CDT These images are for Reference purposes only and have not been reviewed by [facility]. There will be no report generated by a [facility] Radiologist. Narrative [facility] - 07/12/2024 5:46 PM CDT EXAMINATION: Images For Reference Purposes Only Jessee Morton MD IMG CT PROCEDURES Final Re sult Performing Organization Address [facility] Co de Phone Number [email or web address] * Neuro MR Outside Reference (07/12/2024 5:44 PM CDT) Impressions [facility] - 07/12/2024 5:44 PM CDT These images are for Reference purposes only and have not been reviewed by [facility]. There will be no report generated by a [facility] Radiologist. Narrative [facility] - 07/12/2024 5:44 PM CDT EXAMINATION: Images For Reference Purposes Only Result [facility] Jessee Morton MD IMG MRI PROCEDURES Final R esult Performing Organization Address [facility] de Phone Number [email or web address] * Neuro MR Outside Reference (07/12/2024 5:43 PM CDT) Impressions [facility] - 07/12/2024 5:43 PM CDT These images are for Reference purposes only and have not been reviewed by [facility]. There will be no report generated by a [facility] Radiologist. Narrative [facility] - 07/12/2024 5:43 PM CDT EXAMINATION: Images For Reference Purposes Only Result [facility] Jessee Morton MD IMG MRI PROCEDURES Final R esult Performing Organization Address [facility] de Phone Number [email or web address] * XR Outside Reference (07/09/2024 8:48 AM CDT) Impressions [facility] - 07/09/2024 8:48 AM CDT These images are for Reference purposes only and have not been reviewed by [facility]. There will be no report generated by a [facility] Radiologist. Narrative [facility] - 07/09/2024 8:48 AM CDT EXAMINATION: Images For Reference Purposes Only Result [facility] Jessee Morton MD IMG XR PROCEDURES Final Re sult Performing Organization Address [facility] de Phone Number [email or web address] * XR Outside Reference (07/09/2024 8:46 AM CDT) Impressions [facility] - 07/09/2024 8:46 AM CDT These images are for Reference purposes only and have not been reviewed by [facility]. There will be no report generated by a [facility] Radiologist. Narrative [facility] - 07/09/2024 8:46 AM CDT EXAMINATION: Images For Reference Purposes Only Jessee Morton MD IMG XR PROCEDURES Final Re sult Performing Organization Address [facility] de Phone Number [email or web address] * XR Outside Reference (07/09/2024 8:44 AM CDT) Impressions [facility] - 07/09/2024 8:44 AM CDT These images are for Reference purposes only and have not been reviewed by [facility]. There will be no report generated by a [facility] Radiologist. Narrative [facility] - 07/09/2024 8:44 AM CDT EXAMINATION: Images For Reference Purposes Only Result [facility] Jessee Morton MD IMG XR PROCEDURES Final Re sult Performing Organization Address [facility] de Phone Number [email or web address] * Hepatitis panel, acute (04/16/2020 6:35 AM AIR MARSHAL) Hep A IgM Nonreactive Nonreactive [facility] Comment: Interpretive Data: If Hep A IgM Ab is reported as Equivocal, a new sample should be drawn in two weeks for testing. Current interpretive data was last revised on 19. Hep B core IgM Nonreactive Nonreactive [facility] Comment: Interpretive Data If HepB Core IgM Ab is reported as Equivocal, a new sample should be drawn in two weeks for testing. Current interpretive data was last revised on 19. Hep C Ab Nonreactive Nonreactive [facility] Comment:Antibodies to HCV no t detected. Does NOT exclude the possibility of recent exposure to HCV. HepBsAg Nonreactive Nonreactive [facility] Blood specimen (specimen) 04/16/2020 6:35 AM AIR MARSHAL 04/16/2020 7:34 AM AIR MARSHAL Jacob Gates MD LAB MICROBIOLOGY - GENER AL ORDERABLES Final Result [facility] [place] [address] from Last 3 Months or Most Recently Relevant to Health Maintenance Insurance [employer] OPEN ACCESS [employer] [facility] ACC[facility] T [employer] [facility] EXCHANGE T [employer] [facility] EXCHANGE Advance Directives For more information, please contact: [phone] * Full Code (Latest Code Status on [...] 6:15 AM 07/25/2019 11:51 PM Care Teams Underpresser Hand Relationship Specialty Start Date End Date Lyly Fiore NP [address] [place] [address] PCP - General Nurse Practitioner 05/29/24 Beatriz Lee MD [address] [place] [address] Referring Physician Gastroenterology 07/25/19 Taylor Kitchen, time study engineerGame Producer 05/29/24
--- OUTSIDE RECORDS SUMMARY | 2024-10-08 14:50 | XMS_ITS ---
[...] would not be able to prescribe long distance billing operator opioids on discharge. Discussed importance of [...] would not be able to prescribe long distance billing operator opioids on discharge. Discussed importance of [...] would not be able to prescribe long distance billing operator opioids on discharge. Discussed importance of [...] would not be able to prescribe long distance billing operator opioids on discharge. Discussed importance of [...] would not be able to prescribe long distance billing operator opioids on discharge. Discussed importance of [...] we would not be able to prescribe shelter opioids on discharge. Discussed importance of outpatient [...] with baseline creatinine ~2. Previously followed at [facility], but has she has been wanting to transfer care to [place] but has not been able to schedule an appointment. She follows with [facility]. Per Liver Transplant office [...] with baseline creatinine ~2. Previously followed at [facility], but has she has been wanting to transfer care to [place] but has not been able to schedule an appointment. She follows with [facility]. Per Liver Transplant office [...] with baseline creatinine ~2. Previously followed at [facility], but has she has been wanting to transfer care to [place] but has not been able to schedule an appointment. She follows with [facility]. Per Liver Transplant office [...] with baseline creatinine ~2. Previously followed at [facility], but has she has been wanting to transfer care to [place] but has not been able to schedule an appointment. She follows with [facility]. Per Liver Transplant office [...] with baseline creatinine ~2. Previously followed at [facility], but has she has been wanting to transfer care to [place] but has not been able to schedule an appointment. She follows with [facility]. Per Liver Transplant office [...] with baseline creatinine ~2. Previously followed at [facility], but has she has been wanting to transfer care to [place] but has not been able to schedule an appointment. She follows with [facility]. Per Liver Transplant office [...] Transplant starting process of assuming care from [place], but in short term they recommend patient follow up with renal transplant at [place]. - She is NOW actively enrolled in the [employer] free patient assistance program through mar 2025 - script needs to be sent to [facility] (sent). Hyperbilirubinemia 04/16/2020 Assessment & Plan (04/16/2020 5:01 AM PSYCHOLOGICAL OPERATIONS SPECIALIST): - T. Bili of 7 (last [...] 07/25/2019 Assessment & Plan (04/16/2020 2:25 AM PSYCHOLOGICAL OPERATIONS SPECIALIST): See hyperbili problem. Concern for ascites [...] 12/14/2016 Assessment & Plan (04/16/2020 2:26 AM PSYCHOLOGICAL OPERATIONS SPECIALIST): - Chronic, concerned that this may [...] and kidney transplant 04/2020. 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 We would need to call [facility] to identify a contracted center ([phone]). She lives close enough to [place] that would be the most likely city she could travel to. She also noted that she could always remarry an ex- as he has insurance that may be covered at [facility]/. Appreciate note from nephrology and agree with restarting oral diuretics. Can continue tacrolimus at the current dose. MRI/MRCP completed and will review with radiology to identify if any role for PTC. Assessment & Plan (04/16/2020 2:26 AM PSYCHOLOGICAL OPERATIONS SPECIALIST): S/p liver tranplant in 1992 for [...] meds Assessment & Plan (04/16/2020 5:01 AM PSYCHOLOGICAL OPERATIONS SPECIALIST): Unclear if progression of CKD vs [...] Cr of 1.8. She follows with local rental counter clerk Dr. Mathew and thinks her baseline is 2.1. She was at 2.3 at OSH. She took some diuretics at home and was given lasix at [facility] ED. --UA, urine lytes --get records from her rental counter clerk to find out baseline --random tacro level --monitor Is & Os; avoid nephrotoxins Social History Tobacco Use Types Packs/Day Years Used Date Smoking Tobacco: Every Day Cigarettes Smokeless Tobacco: Never Tobacco Cessation:Ready to Q uit: Not Asked; Counseling Given: Not Answered Comments:1 cigarette day Alcohol Use Standard Drinks/Week Comments Never 0 (1 standard drink = 0.6 oz pur e alcohol) rare [employer] Utilities Answer Date Recorded In the past 12 months has [employer], gas, oil, or water [employer] threatened to shut off services in your [...] week 09/03/2024 How often do you attend [facility] ch or latter-day services? Never 09/03/2024 Do you belong to any clubs o r organizations such as restorationism groups, unions, fraternal or athletic groups, or [...] any time in the past 12 m [facility], were you homeless or living in [...] on file Legal Sex Female 10:10 PM PSYCHOLOGICAL OPERATIONS SPECIALIST Gender Identity Not on file [...] On track(2024 9:02 AM CDT) No Matias Abraham RN Note: Problem: Chronic Pain Goals: 1. [...] CDT HEPATITIS PANEL, ACUTE Routine 6:35 AM PSYCHOLOGICAL OPERATIONS SPECIALIST from Last 3 Months or Most Recently Relevant to Health Maintenance Results * Imaging Lumbar/Sacral Facet Medial Branch Block Bilateral ([id number]) (09/25/2024 9:47 AM CDT) Narrative [id number] - 09/25/2024 9:47 AM CDT The images from this study are not interpreted by Radiology. Please refer to the physician's procedure / OR operative note. us Igor Graham MD IMG PAIN MGMT PROCEDURE S Final Result Performing Organization Address City/[facility]/ZIP Co de Phone Number [email or web address] [...] MD LAB BLOOD ORDERABLES Aniya l Result [facility] [place] [address] * Tacrolimus level trough (09/06/2024 9:48 AM CDT) [facility] Tacrolimus trough 6.4 ng/mL Comment: Interpretive Data Testing performed by liquid chromatography-tandem mass spectrometry. Therapeutic concentrations vary depending on type of transplanted organ and time elapsed since transplant. Typical trough concentrations range from 5-15 ng/mL. This test was developed and its performance characteristics determined by the [facility] consistent with CLIA requirements. This test has not been cleared or approved by the US Food and Drug administration. Current interpretive data last reviewed 2019. Blood 09/06/2024 9:48 AM CDT 09/06/2024 10:15 AM CDT Lily Rico MD LAB BLOOD ORDERABLES Final Result [facility] Department [place] [address] * (ABNORMAL) Comprehensive metabolic panel (09/06/2024 9:48 AM CDT) [facility] Sodium 139 135 - 145 mmol/L Potassium, pl 4.1 3.3 - 4.9 mmol/L [facility] Comment:Hemolyzed; Potassium value may be falsely elevated by as much as 0.3-0.5 mmol/L. Suggest redraw and reanalysis. Chloride 102 97 - 110 mmol/L [facility] CO2 26 22 - 32 mmol/L [facility] Anion gap 11 2 - 15 mmol/L [facility] BUN 24 6 - 25 mg/dL [facility] Creatinine 2.04(H) 0.60 - 1.10 mg/dL [facility] Glucose 167 70 - 199 mg/dL [facility] Comment: Interpretive Data Fasting glucose >/= [...] Calcium 8.8 8.5 - 10.3 mg/dL [facility] Bilirubin, total 0.6 0.1 - 1.2 mg/dL [facility] Protein, pl 6.1(L) 6.5 - 8.5 g/dL [facility] Albumin 3.5 3.5 - 5.0 g/dL [facility] Alk phos 241(H) 40 - 130 Units/L [facility] ALT 17 7 - 45 Units/L [facility] AST 41 10 - 45 Units/L [facility] Comment:Hemolyzed; result ma y be falsely elevated Blood 09/06/2024 9:48 AM CDT 09/06/2024 10:15 AM CDT Britta Zhang MD LAB BLOOD ORDERABLES Aniya l Result [facility] [address] [address] [facility] Department [place] [address] * (ABNORMAL) eGFR (09/05/2024 10:47 AM CDT) [...] MD LAB BLOOD ORDERABLES Aniya andrez Result [facility] [address] [facility] Department [place] [address] * Differential, auto (09/05/2024 10:47 AM CDT) Neutrophil abs 3.84 1.50 - 6.50 K/cumm Imm gran abs 0.03 0.00 - 0.10 K/cumm [facility] Lymphocyte abs 1.33 0.80 - 3.30 K/cumm [facility] Monocyte abs 0.30 0.20 - 0.80 K/cumm [facility] Eosinophil abs 0.15 0.00 - 0.50 K/cumm [facility] Basophil abs 0.01 0.00 - 0.10 K/cumm [facility] Neutrophil pct 67.8 % [facility] Comment: Interpretive Data Percent cell count reference ranges are not reported, since discordance with absolute values may lead to misinterpretation of CBC data. Current Interpretive Data was last revised on 2017. Imm gran pct 0.5 % [facility] Comment: Interpretive Data Percent cell count reference ranges are not reported, since discordance with absolute values may lead to misinterpretation of CBC data. Current Interpretive Data was last revised on 2017. Lymphocyte pct 23.5 % [facility] Comment: Interpretive Data Percent cell count reference ranges are not reported, since discordance with absolute values may lead to misinterpretation of CBC data. Current Interpretive Data was last revised on 2017. Monocyte pct 5.3 % [facility] Comment: Interpretive Data Percent cell count reference ranges are not reported, since discordance with absolute values may lead to misinterpretation of CBC data. Current Interpretive Data was last revised on 2017. Eosinophil pct 2.7 % [facility] Comment: Interpretive Data Percent cell count reference ranges are not reported, since discordance with absolute values may lead to misinterpretation of CBC data. Current Interpretive Data was last revised on 2017. Basophil pct 0.2 % [facility] Comment: Interpretive Data Percent cell count reference ranges are not reported, since discordance with absolute values may lead to misinterpretation of CBC data. Current Interpretive Data was last revised on 2017. Blood 09/05/2024 10:4 7 AM CDT 09/05/2024 11:03 AM CDT Britta Zhang MD LAB BLOOD ORDERABLES Aniya l Result Performing Organization Address [facility]/[employer] Co de Phone Number [facility] [place] [place] [address] * Tacrolimus level trough (09/05/2024 10:47 AM CDT) Tacrolimus trough 6.2 ng/mL Comment: Interpretive Data Testing performed by liquid chromatography-tandem mass spectrometry. Therapeutic concentrations vary depending on type of transplanted organ and time elapsed since transplant. Typical trough concentrations range from 5-15 ng/mL. This test was developed and its performance characteristics determined by the [facility] consistent with CLIA requirements. This test has not been cleared or approved by the US Food and Drug administration. Current interpretive data last reviewed 2019. Blood 09/05/2024 10:4 7 AM CDT 09/05/2024 11:04 AM CDT Narrative [facility] - 09/05/2024 1:14 PM CDT Draw exactly 12 HOURS after last dose of tacrolimus was given and just BEFORE giving next dose Britta Zhang MD LAB BLOOD ORDERABLES Aniya l Result Performing Organization Address [facility] Co de Phone Number [facility] [place] [address] * (ABNORMAL) CBC with auto differential (09/05/2024 10:47 AM CDT) [facility] WBC 5.66 3.80 - 9.90 K/cumm Hgb 11.1(L) 11.9 - 15.5 g/dL [facility] Hct 31.6(L) 35.6 - 45.5 % [facility] Plt 115(L) 150 - 400 K/cumm [facility] MPV 11.4 9.1 - 12.3 fL [facility] RBC 2.81(L) 3.90 - 5.20 M/cumm [facility] MCV 112.5(H) 81.3 - 96.4 fL [facility] MCH 39.5(H) 27.1 - 33.3 pg [facility] MCHC 35.1 32.3 - 35.7 g/dL [facility] RDW CV 14.2 11.1 - 14.9 % [facility] RDW SD 59.0(H) 35.7 - 48.1 fL [facility] NRBC abs 0.00 0.00 - 0.01 K/cumm [facility] Blood 09/05/2024 10:4 7 AM CDT 09/05/2024 11:03 AM CDT us Britta Zhang MD LAB BLOOD ORDERABLES Aniya l Result [facility] [address] [facility] Department [place] [address] * (ABNORMAL) Comprehensive metabolic panel (09/05/2024 10:47 AM CDT) [facility] Sodium 143 135 - 145 mmol/L Potassium, pl 4.2 3.3 - 4.9 mmol/L [facility] Chloride 102 97 - 110 mmol/L [facility] CO2 28 22 - 32 mmol/L [facility] Anion gap 13 2 - 15 mmol/L [facility] BUN 28(H) 6 - 25 mg/dL [facility] Creatinine 2.49(H) 0.60 - 1.10 mg/dL [facility] Glucose 127 70 - 199 mg/dL [facility] Comment: Interpretive Data Fasting glucose >/= [...] 2022. Calcium 9.0 8.5 - 10.3 mg/dL [facility] Bilirubin, total 0.7 0.1 - 1.2 mg/dL [facility] Protein, pl 6.4(L) 6.5 - 8.5 g/dL [facility] Albumin 3.7 3.5 - 5.0 g/dL [facility] Alk phos 257(H) 40 - 130 Units/L [facility] ALT 18 7 - 45 Units/L [facility] AST 27 10 - 45 Units/L [facility] Blood 09/05/2024 10:4 7 AM CDT 09/05/2024 11:03 AM CDT us Britta Zhang MD LAB BLOOD ORDERABLES Aniya l Result [facility] [address] [facility] Department [place] [address] * (ABNORMAL) eGFR (09/04/2024 5:03 AM CDT) [...] BLOOD ORDERABLES Aniya maguire Result [facility] [address] [facility] Department [place] [address] * Differential, auto (09/04/2024 5:03 AM CDT) Neutrophil abs 2.68 1.50 - 6.50 K/cumm Imm gran abs 0.01 0.00 - 0.10 K/cumm [facility] Lymphocyte abs 1.03 0.80 - 3.30 K/cumm [facility] Monocyte abs 0.23 0.20 - 0.80 K/cumm [facility] Eosinophil abs 0.09 0.00 - 0.50 K/cumm [facility] Basophil abs 0.00 0.00 - 0.10 K/cumm [facility] Neutrophil pct 66.4 % [facility] Comment: Interpretive Data Percent cell count reference ranges are not reported, since discordance with absolute values may lead to misinterpretation of CBC data. Current Interpretive Data was last revised on 2017. Imm gran pct 0.2 % [facility] Comment: Interpretive Data Percent cell count reference ranges are not reported, since discordance with absolute values may lead to misinterpretation of CBC data. Current Interpretive Data was last revised on 2017. Lymphocyte pct 25.5 % [facility] Comment: Interpretive Data Percent cell count reference ranges are not reported, since discordance with absolute values may lead to misinterpretation of CBC data. Current Interpretive Data was last revised on 2017. Monocyte pct 5.7 % [facility] Comment: Interpretive Data Percent cell count reference ranges are not reported, since discordance with absolute values may lead to misinterpretation of CBC data. Current Interpretive Data was last revised on 2017. Eosinophil pct 2.2 % [facility] Comment: Interpretive Data Percent cell count reference ranges are not reported, since discordance with absolute values may lead to misinterpretation of CBC data. Current Interpretive Data was last revised on 2017. Basophil pct 0.0 % [facility] Comment: Interpretive Data Percent cell count reference ranges are not reported, since discordance with absolute values may lead to misinterpretation of CBC data. Current Interpretive Data was last revised on 2017. Blood 09/04/2024 5:03 AM CDT 09/04/2024 5:10 AM CDT Britta Zhang MD LAB BLOOD ORDERABLES Aniya l Result [facility] [address] [place] [address] * Tacrolimus level trough (09/04/2024 5:03 AM CDT) [facility] Tacrolimus trough 10.9 ng/mL Comment: Interpretive Data Testing performed by liquid chromatography-tandem mass spectrometry. Therapeutic concentrations vary depending on type of transplanted organ and time elapsed since transplant. Typical trough concentrations range from 5-15 ng/mL. This test was developed and its performance characteristics determined by the [facility] consistent with CLIA requirements. This test has not been cleared or approved by the US Food and Drug administration. Current interpretive data last reviewed 2019. Blood 09/04/2024 5:03 AM CDT 09/04/2024 5:10 AM CDT Narrative [facility] - 09/04/2024 7:32 AM CDT Draw exactly 12 HOURS after last dose of tacrolimus was given and just BEFORE giving next dose us Britta Zhang MD LAB BLOOD ORDERABLES Aniya l Result [facility] [place] [address] * (ABNORMAL) CBC with auto differential (09/04/2024 5:03 AM CDT) WBC 4.04 3.80 - 9.90 K/cumm Hgb 11.8(L) 11.9 - 15.5 g/dL [facility] Hct 32.9(L) 35.6 - 45.5 % [facility] Plt 66(L) 150 - 400 K/cumm [facility] MPV 12.0 9.1 - 12.3 fL [facility] RBC 2.96(L) 3.90 - 5.20 M/cumm [facility] MCV 111.1(H) 81.3 - 96.4 fL [facility] MCH 39.9(H) 27.1 - 33.3 pg [facility] MCHC 35.9(H) 32.3 - 35.7 g/dL [facility] RDW CV 14.0 11.1 - 14.9 % [facility] RDW SD 56.5(H) 35.7 - 48.1 fL [facility] NRBC abs 0.00 0.00 - 0.01 K/cumm [facility] Blood 09/04/2024 5:03 AM CDT 09/04/2024 5:10 AM CDT Britta Zhang MD LAB BLOOD ORDERABLES Aniya l Result [facility] Department [place] [address] * (ABNORMAL) Comprehensive metabolic panel (09/04/2024 5:03 AM CDT) Sodium 137 135 - 145 mmol/L Potassium, pl 4.2 3.3 - 4.9 mmol/L [facility] Chloride 100 97 - 110 mmol/L [facility] CO2 26 22 - 32 mmol/L [facility] Anion gap 11 2 - 15 mmol/L [facility] BUN 30(H) 6 - 25 mg/dL [facility] Creatinine 2.87(H) 0.60 - 1.10 mg/dL [facility] Glucose 153 70 - 199 mg/dL [facility] Comment: Interpretive Data Fasting glucose >/= [...] 8.5 8.5 - 10.3 mg/dL [facility] Bilirubin, total 0.8 0.1 - 1.2 mg/dL [facility] Protein, pl 6.6 6.5 - 8.5 g/dL [facility] Albumin 3.5 3.5 - 5.0 g/dL [facility] Alk phos 240(H) 40 - 130 Units/L [facility] ALT 12 7 - 45 Units/L [facility] AST 31 10 - 45 Units/L [facility] Blood 09/04/2024 5:03 AM CDT 09/04/2024 5:10 AM CDT us Britta Zhang MD LAB BLOOD ORDERABLES Aniya maguire Result [facility] [address] [facility] Department [place] [address] * (ABNORMAL) eGFR (09/03/2024 5:21 AM CDT) [...] Britta Zhang MD LAB BLOOD ORDERABLES Aniya amguire Result [facility] [address] [facility] [place] [address] * Differential, auto (09/03/2024 5:21 AM CDT) Neutrophil abs 3.79 1.50 - 6.50 K/cumm Imm gran abs 0.03 0.00 - 0.10 K/cumm [facility] Lymphocyte abs 0.84 0.80 - 3.30 K/cumm [facility] Monocyte abs 0.25 0.20 - 0.80 K/cumm [facility] Eosinophil abs 0.05 0.00 - 0.50 K/cumm [facility] Basophil abs 0.00 0.00 - 0.10 K/cumm [facility] Neutrophil pct 76.5 % [facility] Comment: Interpretive Data Percent cell count reference ranges are not reported, since discordance with absolute values may lead to misinterpretation of CBC data. Current Interpretive Data was last revised on 2017. Imm gran pct 0.6 % [facility] Comment: Interpretive Data Percent cell count reference ranges are not reported, since discordance with absolute values may lead to misinterpretation of CBC data. Current Interpretive Data was last revised on 2017. Lymphocyte pct 16.9 % [facility] Comment: Interpretive Data Percent cell count reference ranges are not reported, since discordance with absolute values may lead to misinterpretation of CBC data. Current Interpretive Data was last revised on 2017. Monocyte pct 5.0 % [facility] Comment: Interpretive Data Percent cell count reference ranges are not reported, since discordance with absolute values may lead to misinterpretation of CBC data. Current Interpretive Data was last revised on 2017. Eosinophil pct 1.0 % [facility] Comment: Interpretive Data Percent cell count reference ranges are not reported, since discordance with absolute values may lead to misinterpretation of CBC data. Current Interpretive Data was last revised on 2017. Basophil pct 0.0 % [facility] Comment: Interpretive Data Percent cell count reference ranges are not reported, since discordance with absolute values may lead to misinterpretation of CBC data. Current Interpretive Data was last revised on 2017. Blood 09/03/2024 5:21 AM CDT 09/03/2024 5:31 AM CDT Britta Zhang MD LAB BLOOD ORDERABLES Aniya maguire Result [facility] [address] [facility] [facility] [place] [address] * Tacrolimus level trough (09/03/2024 5:21 AM CDT) [facility] Tacrolimus trough 17.8 ng/mL Comment: Interpretive Data Testing performed by liquid chromatography-tandem mass spectrometry. Therapeutic concentrations vary depending on type of transplanted organ and time elapsed since transplant. Typical trough concentrations range from 5-15 ng/mL. This test was developed and its performance characteristics determined by the [facility] consistent with CLIA requirements. This test has not been cleared or approved by the [place] Food and Drug administration. Current interpretive data last reviewed 2019. Blood 09/03/2024 5:21 AM CDT 09/03/2024 5:31 AM CDT Narrative [facility] [facility] 09[facility]/2024 9:19 AM CDT Draw exactly 12 HOURS after last dose of tacrolimus was given and just BEFORE giving next dose Britta Zhang MD LAB BLOOD ORDERABLES Aniya andrez Result Performing Organization Address [facility]UST Co de Phone Number [facility] Department [place] [address] * (ABNORMAL) CBC with auto differential (09/03/2024 5:21 AM CDT) [facility] WBC 4.96 3.80 - 9.90 K/cumm Hgb 11.3(L) 11.9 - 15.5 g/dL [facility] Hct 30.7(L) 35.6 - 45.5 % [facility] Plt 83(L) 150 - 400 K/cumm [facility] MPV 11.0 9.1 - 12.3 fL [facility] RBC 2.84(L) 3.90 - 5.20 M/cumm [facility] MCV 108.1(H) 81.3 - 96.4 fL [facility] MCH 39.8(H) 27.1 - 33.3 pg [facility] MCHC 36.8(H) 32.3 - 35.7 g/dL [facility] RDW CV 13.9 11.1 - 14.9 % [facility] RDW SD 54.4(H) 35.7 - 48.1 fL [facility] NRBC abs 0.00 0.00 - 0.01 K/cumm [facility] Blood 09/03/2024 5:21 AM CDT 09/03/2024 5:31 AM CDT Britta Zhang MD LAB BLOOD ORDERABLES Aniya l Result Performing Organization Address [facility]/ZIP Co de Phone Number [facility] [place] [address] * (ABNORMAL) Comprehensive metabolic panel (09/03/2024 5:21 AM CDT) Sodium 138 135 - 145 mmol/L Potassium, pl 4.7 3.3 - 4.9 mmol/L [facility] Chloride 101 97 - 110 mmol/L [facility] CO2 29 22 - 32 mmol/L [facility] Anion gap 8 2 - 15 mmol/L [facility] BUN 29(H) 6 - 25 mg/dL [facility] Creatinine 2.92(H) 0.60 - 1.10 mg/dL [facility] Glucose 113 70 - 199 mg/dL [facility] Comment: Interpretive Data Fasting glucose >/= [...] 9.2 8.5 - 10.3 mg/dL [facility] Bilirubin, total 1.1 0.1 - 1.2 mg/dL [facility] Protein, pl 6.2(L) 6.5 - 8.5 g/dL [facility] Albumin 3.4(L) 3.5 - 5.0 g/dL [facility] Alk phos 233(H) 40 - 130 Units/L [facility] ALT 13 7 - 45 Units/L [facility] AST 22 10 - 45 Units/L [facility] Blood 09/03/2024 5:21 AM CDT 09/03/2024 5:31 AM CDT us Britta Zhang MD LAB BLOOD ORDERABLES Aniya maguire Result [facility] [address] [facility] Department [place] [address] * BK virus PCR quantitative Blood (09/02/2024 12:21 PM CDT) BKV DNA result, pl Not Detected [facility] Comment: The quantifiable range of this assay is 21.5 IU/mL to 100,000,000 IU/mL (1.33 log IU/mL to 8.00 log IU/mL). Testing was performed by the JOHNNY 6800 BKV Quantatitive Test version 2.0 (Luisa [employer] Testing performed at [facility] Current Interpretive Data was last revised on 2021. Blood 09/02/2024 12:2 1 PM CDT 09/02/2024 12:52 PM CDT Britta Zhang MD LAB MICROBIOLOGY - GENERA L ORDERABLES Final Result Performing Organization Address City/[facility]/ZIP Co de Phone Number ALEK [facility] [address] [facility] [place] [address] [facility] * HLA Donor Specific Antibody Report [...] ORDERABLES Aniya l Result Performing Organization Address City/[facility] Co de Phone Number ALEK [facility] Department [place] [address] * Cytomegalovirus (CMV) DNA PCR, quantitative Blood (09/02/2024 12:21 PM CDT) Pathologist [facility] CMV DNA Not Detected [facility] Comment: Interpretive Data: The quantifiable range of this assay is 34 IUnits/mL to 10,000,000 IUnits/mL (1.53 log IUnits/mL to 7.0 log IUnits/mL). Testing was performed by the JOHNNY 6800 CMV Test ([employer] Testing performed at [facility]. Current interpretive data was last revised on 2020. Blood 09/02/2024 12:2 1 PM CDT 09/02/2024 12:52 PM CDT Britta Zhang MD LAB MICROBIOLOGY - GENERA L ORDERABLES Final Result Performing Organization Address [facility] Co de Phone Number ALEK [facility] [address] [facility] Department [place] [address] [facility] * (ABNORMAL) eGFR (09/02/2024 12:21 PM CDT) Pathologist [facility] eGFR 20(L) >=60 [...] BLOOD ORDERABLES Aniya maguire Result [facility] [address] [facility] [place] [address] * Blood culture Blood (09/02/2024 12:21 PM CDT) Report Final Report: No growth Blood 09/02/2024 12:2 1 PM CDT 09/02/2024 1:40 PM CDT [facility]ative [facility] - 09/06/2024 4:00 PM CDT From [...] performance characteristics have been verified by the [facility] Microbiology Laboratory. For questions about this culture, contact the Microbiology Laboratory at [phone]. Interpretive data was last revised on 24. Britta Zhang MD LAB MICROBIOLOGY - GENERA L ORDERABLES Final Result [facility] [place] [address] * Blood culture Blood (09/02/2024 12:21 PM CDT) Report Final Report: No growth Blood 09/02/2024 12:2 1 PM CDT 09/02/2024 1:40 PM CDT Narrative ALEK [facility] - 09/06/2024 4:00 PM CDT Collection->Peripheral [...] performance characteristics have been verified by the [facility] Microbiology Laboratory. For questions about this culture, contact the Microbiology Laboratory at [phone]. Interpretive data was last revised on 24. Britta Zhang MD LAB MICROBIOLOGY - GENERA L ORDERABLES Final Result Performing Organization Address City/[facility]/ZIP Co de Phone Number ALEK [facility] [facility] Department [place] [address] * (ABNORMAL) Renal function panel (09/02/2024 12:21 PM CDT) Sodium 137 135 - 145 mmol/L Potassium, pl 3.9 3.3 - 4.9 mmol/L [facility] Chloride 97 97 - 110 mmol/L [facility] CO2 31 22 - 32 mmol/L [facility] Anion gap 9 2 - 15 mmol/L [facility] BUN 28(H) 6 - 25 mg/dL [facility] Creatinine 2.89(H) 0.60 - 1.10 mg/dL [facility] Glucose 162 70 - 199 mg/dL [facility] Comment: Interpretive Data Fasting glucose >/= [...] 2022. Calcium 9.7 8.5 - 10.3 mg/dL [facility] Phosphorus, pl 4.1 2.3 - 4.5 mg/dL [facility] Albumin 3.5 3.5 - 5.0 g/dL [facility] Blood 09/02/2024 12:2 1 PM CDT 09/02/2024 12:42 PM CDT us Britta Zhang MD LAB BLOOD ORDERABLES Aniya maguire Result [facility] [address] [facility] [place] [address] * (ABNORMAL) eGFR (09/02/2024 5:16 AM CDT) [...] Valiente MD LAB BLOOD ORDERABLES Final Result [facility] [address] [facility] [place] [address] * Differential, auto (09/02/2024 5:16 AM CDT) Neutrophil abs 3.97 1.50 - 6.50 K/cumm Imm gran abs 0.02 0.00 - 0.10 K/cumm [facility] Lymphocyte abs 1.10 0.80 - 3.30 K/cumm [facility] Monocyte abs 0.24 0.20 - 0.80 K/cumm [facility] Eosinophil abs 0.11 0.00 - 0.50 K/cumm [facility] Basophil abs 0.01 0.00 - 0.10 K/cumm [facility] Neutrophil pct 72.8 % [facility] Comment: Interpretive Data Percent cell count reference ranges are not reported, since discordance with absolute values may lead to misinterpretation of CBC data. Current Interpretive Data was last revised on 2017. Imm gran pct 0.4 % [facility] Comment: Interpretive Data Percent cell count reference ranges are not reported, since discordance with absolute values may lead to misinterpretation of CBC data. Current Interpretive Data was last revised on 2017. Lymphocyte pct 20.2 % [facility] Comment: Interpretive Data Percent cell count reference ranges are not reported, since discordance with absolute values may lead to misinterpretation of CBC data. Current Interpretive Data was last revised on 2017. Monocyte pct 4.4 % [facility] Comment: Interpretive Data Percent cell count reference ranges are not reported, since discordance with absolute values may lead to misinterpretation of CBC data. Current Interpretive Data was last revised on 2017. Eosinophil pct 2.0 % [facility] Comment: Interpretive Data Percent cell count reference ranges are not reported, since discordance with absolute values may lead to misinterpretation of CBC data. Current Interpretive Data was last revised on 2017. Basophil pct 0.2 % [facility] Comment: Interpretive Data Percent cell count reference ranges are not reported, since discordance with absolute values may lead to misinterpretation of CBC data. Current Interpretive Data was last revised on 2017. Blood 09/02/2024 5:16 AM CDT 09/02/2024 5:32 AM CDT us Bailee Valiente MD LAB BLOOD ORDERABLES Final Result ALEK [facility] [address] [facility] [place] [address] * Tacrolimus level trough (09/02/2024 5:16 AM CDT) [facility] Tacrolimus trough 17.0 ng/mL Comment: Interpretive Data Testing performed by liquid chromatography-tandem mass spectrometry. Therapeutic concentrations vary depending on type of transplanted organ and time elapsed since transplant. Typical trough concentrations range from 5-15 ng/mL. This test was developed and its performance characteristics determined by the [facility] Laboratory consistent with CLIA requirements. This test has not been cleared or approved by the [place] Food and Drug administration. Current interpretive data last reviewed 2019. Blood 09/02/2024 5:16 AM CDT 09/02/2024 5:32 AM CDT us Britta Zhang MD LAB BLOOD ORDERABLES Aniya l Result [facility] Department [place] [address] * (ABNORMAL) CBC with auto differential (09/02/2024 5:16 AM CDT) [facility] WBC 5.45 3.80 - 9.90 K/cumm Hgb 11.7(L) 11.9 - 15.5 g/dL [facility] Hct 32.3(L) 35.6 - 45.5 % [facility] Plt 98(L) 150 - 400 K/cumm [facility] MPV 11.4 9.1 - 12.3 fL [facility] RBC 2.95(L) 3.90 - 5.20 M/cumm [facility] MCV 109.5(H) 81.3 - 96.4 fL [facility] MCH 39.7(H) 27.1 - 33.3 pg [facility] MCHC 36.2(H) 32.3 - 35.7 g/dL [facility] RDW CV 13.9 11.1 - 14.9 % [facility] RDW SD 56.6(H) 35.7 - 48.1 fL [facility] NRBC abs 0.00 0.00 - 0.01 K/cumm [facility] Blood 09/02/2024 5:16 AM CDT 09/02/2024 5:32 AM CDT us Bailee Valiente MD LAB BLOOD ORDERABLES Final Result [facility] Department [place] [address] * (ABNORMAL) Comprehensive metabolic panel (09/02/2024 5:16 AM CDT) Pathologist [facility] Sodium 137 135 - 145 mmol/L Potassium, pl 4.1 3.3 - 4.9 mmol/L [facility] Chloride 98 97 - 110 mmol/L [facility] CO2 32 22 - 32 mmol/L [facility] Anion gap 7 2 - 15 mmol/L [facility] BUN 29(H) 6 - 25 mg/dL [facility] Creatinine 3.05(H) 0.60 - 1.10 mg/dL [facility] Glucose 185 70 - 199 mg/dL [facility] Comment: Interpretive Data Fasting glucose >/= [...] 2022. Calcium 9.0 8.5 - 10.3 mg/dL [facility] Bilirubin, total 1.0 0.1 - 1.2 mg/dL [facility] Protein, pl 6.3(L) 6.5 - 8.5 g/dL [facility] Albumin 3.8 3.5 - 5.0 g/dL [facility] Alk phos 223(H) 40 - 130 Units/L [facility] ALT 11 7 - 45 Units/L [facility] AST 24 10 - 45 Units/L [facility] Blood 09/02/2024 5:16 AM CDT 09/02/2024 5:32 AM CDT us Bailee Valiente MD LAB BLOOD ORDERABLES Final Result [facility] [address] [facility] Department [place] [address] * Troponin I high-sensitivity 2-hour (09/01/2024 2:58 AM CDT) Trop I hs 5 <=17 ng/L Comment: Interpretive Data For further hscTnI resources including the diagnostic algorithm and an aid in interpretation, copy and paste this link: [email or web address].[email or web address]/[email or web address] Current Interpretive Data last revised 2019. Trop I hs delta 0 ng/L [facility] Trop I hs interp Insignificant [facility] Blood 09/01/2024 2:58 AM CDT 09/01/2024 3:13 AM CDT Diana Cassidy MD LAB BLOOD ORDERABLES Fi nal Result Performing Organization Address City/[facility]/ZIP Co de Phone Number [facility] [address] [facility] [place] [address] * ECG 12-LEAD (09/01/2024 2:53 AM CDT) Narrative [facility] - 09/01/2024 2:53 AM CDT Elisha Avila MD 09/01/2024 3:24 AM ECG 12 lead Date/Time: 09/01/2024 2:53 AM Performed by: Elisha Avila MD Authorized by: Diana Cassidy MD Diana Cassidy MD ECG ORDERABLES Final R esult Performing Organization Address City/[facility]/ZIP Co de Phone Number [facility] * XR Chest PA Lateral 2 [...] and read back by: Flower Moser MD ([phone]) on 09/02/2024 03:01:57 by: Radu Helm MT Direct Specimen Exam Stain: Gram Positive Cocci in clusters Time to culture positivity (anaerobic media): 21.4 hours Notification of: Gram Positive Cocci in clusters called to and read back by: Flower Moser MD ([phone]) on 09/02/2024 01:01:22 by: Radu Helm MT [facility] Report Final Report: Staphylococcus epidermidis Single blood culture positive for this microorganism. Isolate is a possible contaminant. If a similar isolate is recovered from a second blood culture collected within 3 days of this culture, both will be evaluated and, if determined to be the same species, antimicrobial susceptibility testing will be performed. (.) [facility] Organism STAPHYLOCOCCUS EPIDERMIDIS [facility] Blood 09/01/2024 2:18 AM CDT 09/01/2024 2:43 AM CDT Narrative ALEK [facility] - 09/06/2024 12:48 PM CDT From [...] performance characteristics have been verified by the [facility] Microbiology Laboratory. For questions about this culture, contact the Microbiology Laboratory at [phone]. Interpretive data was last revised on 24. us Diana Cassidy MD LAB MICROBIOLOGY - GENE RAL ORDERABLES Final Result [facility]K [facility] [address] [facility] [place] [address] * US Renal Transplant W Dopplers (09/01/2024 [...] Soto Mena M.D., Ph.D Diana Cassidy MD [facility] PROCEDURES Final Result * (ABNORMAL) Respiratory pathogen panel Nasopharyngeal (09/01/2024 12:58 AM CDT) Pathologist [facility] Influenza A RNA Not Detected Not Detected Influenza B RNA Not Detected Not Detected [facility] RSV RNA Not Detected Not Detected [facility] COVID-19 RNA Not Detected Not Detected [facility] Coronavirus 229E RNA Not Detected Not Detected [facility] Coronavirus HKU1 RNA Not Detected Not Detected [facility] Coronavirus NL63 RNA Not Detected Not Detected [facility] Coronavirus OC43 RNA Not Detected Not Detected [facility] Adenovirus DNA Not Detected Not Detected [facility] Metapneumovirus RNA Not Detected Not Detected [facility] Rhinovirus/Enterov irus RNA Detected(A) Not Detected [facility] Parainfluenza 1 RNA Not Detected Not Detected [facility] Parainfluenza 2 RNA Not Detected Not Detected [facility] Parainfluenza 3 RNA Not Detected Not Detected [facility] Parainfluenza 4 RNA Not Detected Not Detected [facility] B. pertussis DNA Not Detected Not Detected [facility] B. parapertussis DNA Not Detected Not Detected [facility] C. pneumoniae DNA Not Detected Not Detected [facility] M. pneumoniae DNA Not Detected Not Detected [facility] Nasopharyngeal 09/01/2024 12 :58 AM CDT 09/01/2024 2:52 AM CDT Narrative [facility] - 09/01/2024 3:48 AM CDT Is the Patient experiencing symptoms consistent with COVID?->Yes Surveillance testing for transplant patient?->No Interpretive Data The ACTV8 FilmArray Respiratory Panel (RP2.1) assay is a [...] assay has FDA clearance for testing of PHYSICIAN SPECIALIST swabs. The performance of additional specimen types has been assessed by the performing laboratory. The performance characteristics of this assay have been determined by [facility] Molecular Infectious Disease Laboratory. Current interpretive data was last revised on 21. us Diana Cassidy MD LAB MICROBIOLOGY - GENE [facility] ORDERABLES Final Result [facility] [address] [facility] [place] [address] * Troponin I high-sensitivity series (baseline, 2hr, [...] ORDERABLES Fi nal Result Performing Organization Address City/[facility]/ZIP Co de Phone Number [facility] [place] [address] * Sepsis Lactate w/ Reflex (09/01/2024 12:57 AM CDT) Sepsis Lactate 1.8 0.7 - 2.0 mmol/L Blood 09/01/2024 12:5 7 AM CDT 09/01/2024 1:14 AM CDT Diana Cassidy MD LAB BLOOD ORDERABLES Fi nal Result Performing Organization Address [facility] de Phone Number [facility] Department [place] [address] * (ABNORMAL) eGFR (09/01/2024 12:57 AM CDT) eGFR 26(L) >=60 mL/min/1. 73 m2 Comment: [...] Cassidy MD LAB BLOOD ORDERABLES nal Result [facility] [address] [facility] [place] [address] * Differential, auto (09/01/2024 12:57 AM CDT) Neutrophil abs 4.42 1.50 - 6.50 K/cumm Imm gran abs 0.03 0.00 - 0.10 K/cumm [facility] Lymphocyte abs 1.17 0.80 - 3.30 K/cumm [facility] Monocyte abs 0.38 0.20 - 0.80 K/cumm [facility] Eosinophil abs 0.10 0.00 - 0.50 K/cumm [facility] Basophil abs 0.02 0.00 - 0.10 K/cumm [facility] Neutrophil pct 72.3 % [facility] Comment: Interpretive Data Percent cell count reference ranges are not reported, since discordance with absolute values may lead to misinterpretation of CBC data. Current Interpretive Data was last revised on 2017. Imm gran pct 0.5 % [facility] Comment: Interpretive Data Percent cell count reference ranges are not reported, since discordance with absolute values may lead to misinterpretation of CBC data. Current Interpretive Data was last revised on 2017. Lymphocyte pct 19.1 % [facility] Comment: Interpretive Data Percent cell count reference ranges are not reported, since discordance with absolute values may lead to misinterpretation of CBC data. Current Interpretive Data was last revised on 2017. Monocyte pct 6.2 % [facility] Comment: Interpretive Data Percent cell count reference ranges are not reported, since discordance with absolute values may lead to misinterpretation of CBC data. Current Interpretive Data was last revised on 2017. Eosinophil pct 1.6 % [facility] Comment: Interpretive Data Percent cell count reference ranges are not reported, since discordance with absolute values may lead to misinterpretation of CBC data. Current Interpretive Data was last revised on 2017. Basophil pct 0.3 % [facility] Comment: Interpretive Data Percent cell count reference ranges are not reported, since discordance with absolute values may lead to misinterpretation of CBC data. Current Interpretive Data was last revised on 2017. Blood 09/01/2024 12:5 7 AM CDT 09/01/2024 1:20 AM CDT us Diana Cassidy MD LAB BLOOD ORDERABLES Fi nal Result [facility] [address] [facility] [place] [address] * (ABNORMAL) Urinalysis reflex to microscopic and culture Urine, bladder (09/01/2024 12:57 AM CDT) Color, ur Yellow Yellow Clarity, ur Clear Clear [facility] Specific gravity, ur 1.020 1.003 - 1.030 [facility] pH, urine 5.5 [facility] Comment: Interpretive Data U rine pH is affected by diet, medications, systemic acid-base disturbances, and renal tubular function. pH may affect urinary stone formation. For example, urine pH below 6.0 may help reduce the tendency for calcium phosphate stones and pH greater than 6.0 may reduce the tendency for uric acid stone formation. Source: [facility] [employer] Current Interpretive Data was last revised on 2017 Protein, ur ql Trace Negative [facility] Glucose, ur ql Negative Negative [facility] Ketones, ur Trace Negative [facility] Bilirubin, ur Negative Negative [facility] Blood, ur Negative Negative [facility] Urobilinogen, ur 2.0(A) <2.0 mg/dL [facility] Nitrite, ur Negative Negative [facility] Leukocyte esterase, ur Negative Negative [facility] UA reflex comment Reflex conditions for microscopic UA and culture not met. [facility] Urine, bladder 09/01/2024 12 :57 AM CDT 09/01/2024 1:14 AM CDT Diana Cassidy MD LAB MICROBIOLOGY - GENE RAL ORDERABLES Final Result Performing Organization Address [facility]/[employer] Co de Phone Number [facility] Department [place] [address] * (ABNORMAL) CBC with auto differential (09/01/2024 12:57 AM CDT) WBC 6.12 3.80 - 9.90 K/cumm Hgb 12.7 11.9 - 15.5 g/dL [facility] Hct 35.2(L) 35.6 - 45.5 % [facility] Plt 115(L) 150 - 400 K/cumm [facility] MPV 11.0 9.1 - 12.3 fL [facility] RBC 3.20(L) 3.90 - 5.20 M/cumm [facility] MCV 110.0(H) 81.3 - 96.4 fL [facility] MCH 39.7(H) 27.1 - 33.3 pg [facility] MCHC 36.1(H) 32.3 - 35.7 g/dL [facility] RDW CV 14.2 11.1 - 14.9 % [facility] RDW SD 57.3(H) 35.7 - 48.1 fL [facility] NRBC abs 0.00 0.00 - 0.01 K/cumm [facility] Blood 09/01/2024 12:5 7 AM CDT 09/01/2024 1:20 AM CDT Diana Cassidy MD LAB BLOOD ORDERABLES Fi nal Result [facility] [place] [address] * Tacrolimus level random (09/01/2024 12:57 AM CDT) Tacrolimus random 23.8 ng/mL Comment: Interpretive Data Testing performed by liquid chromatography-tandem mass spectrometry. Therapeutic concentrations vary depending on type of transplanted organ and time elapsed since transplant. Typical trough concentrations range from 5-15 ng/mL. This test was developed and its performance characteristics determined by the [facility] consistent with CLIA requirements. This test has not been cleared or approved by the US Food and Drug administration. Current interpretive data last reviewed 2019. Blood 09/01/2024 12:5 7 AM CDT 09/01/2024 1:20 AM CDT Diana Cassidy MD LAB BLOOD ORDERABLES Fi nal Result [facility] Department [place] [address] * Blood culture Blood (09/01/2024 12:57 AM [...] performance characteristics have been verified by the [facility] Microbiology Laboratory. For questions about this culture, contact the Microbiology Laboratory at [phone]. Interpretive data was last revised on 24. Diana Cassidy MD LAB MICROBIOLOGY - GENE RAL ORDERABLES Final Result Performing Organization Address City/[facility] de Phone Number [facility] [place] [address] * Phosphorus (09/01/2024 12:57 AM CDT) Pathologist [facility] Phosphorus, pl 2.9 2.3 - 4.5 mg/dL Blood 09/01/2024 12:5 7 AM CDT 09/01/2024 1:20 AM CDT Diana Cassidy MD LAB BLOOD ORDERABLES Fi nal Result Performing Organization Address [facility] [place] [address] * Magnesium (09/01/2024 12:57 AM CDT) Pathologist [facility] Magnesium 1.5 1.4 - 2.5 mg/dL Blood 09/01/2024 12:5 7 AM CDT 09/01/2024 1:20 AM CDT Diana Cassidy MD LAB BLOOD ORDERABLES Fi nal Result Performing Organization Address [facility] [place] [address] * Lipase (09/01/2024 12:57 AM CDT) Lipase 19 10 - 99 Units/L Blood 09/01/2024 12:5 7 AM CDT 09/01/2024 1:20 AM CDT us Diana Cassidy MD LAB BLOOD ORDERABLES Fi nal Result [facility] [place] [address] * (ABNORMAL) Comprehensive metabolic panel (09/01/2024 12:57 AM CDT) Sodium 138 135 - 145 mmol/L Potassium, pl 4.5 3.3 - 4.9 mmol/L [facility] Comment:Hemolyzed; Potassium value may be falsely elevated by as much as 0.3-0.5 mmol/L. Suggest redraw and reanalysis. Chloride 105 97 - 110 mmol/L [facility] CO2 24 22 - 32 mmol/L [facility] Anion gap 9 2 - 15 mmol/L [facility] BUN 21 6 - 25 mg/dL [facility] Creatinine 2.34(H) 0.60 - 1.10 mg/dL [facility] Glucose 89 70 - 199 mg/dL [facility] Comment: Interpretive Data Fasting glucose >/= [...] Calcium 8.7 8.5 - 10.3 mg/dL [facility] Bilirubin, total 1.1 0.1 - 1.2 mg/dL [facility] Protein, pl 7.1 6.5 - 8.5 g/dL [facility] Albumin 3.9 3.5 - 5.0 g/dL [facility] Alk phos 257(H) 40 - 130 Units/L [facility] ALT 14 7 - 45 Units/L [facility] AST 37 10 - 45 Units/L [facility] Comment:Hemolyzed; result ma y be falsely elevated Blood 09/01/2024 12:5 7 AM CDT 09/01/2024 1:20 AM CDT us Diana Cassidy MD LAB BLOOD ORDERABLES Fi nal Result [facility] [place] [address] * Surgical pathology (08/02/2024 9:18 AM CDT) Tissue (Miscellaneous) 08/02/2024 9:18 AM CDT 08/02/2024 9:18 AM CDT Narrative [facility] PATH[facility]Y [facility] - 08/14/2024 2:01 PM CDT EPIC results best viewed via link to PDF [facility] Pathology Consult Service [facility] [employer] [address], [place] [address] Note to Patients: This report [...] SURGICAL PATHOLOGY REPORT * Consult Report * [facility] is providing an additional review of previously collected tissue. FINAL Patient Name: MISHA BROWNE Address: [address] [place] [id number] Gender: F : 1980 (Age: 43) Hospital #: [id number] Patient Type: [facility] Location: UNKNOWN Taken: 08/02/2024 Received: 08/02/2024 Accessioned: 08/05/2024 Reported: 08/14/2024 Physician(s): Beatriz Lee M.D. [facility] Department of Pathology [address] [place] [address] [place] [address] P: [phone] F: [phone] Diagnosis: Consult material received from [place], [place] (OSC: [id number]; 11/17/2023) A. 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 Course was complicated by biopsy [...] show moderate inflammatory infiltrate. There is patchy mitc-tv-pjfrzdmh tubulitis. Small arteries and arterioles show mild [...] Received for review are ten slides labeled [id number], and nine slides labeled [id number], accompanied by a corresponding pathology report. The material originates from [facility], [place], [place]. Selected slide(s) may be digitally scanned [...] occasional mononuclear cells Arteriolar hyalinosis (ah): ah1 Ictj-[id number] PAS-positive hyaline thickening in at least one [...] the Department of Pathology and Immunology at [facility], [address] [place] [address] CLIA # [id number] The performance characteristics of the testing cited in this report (if any) were determined by the [facility] Department of Pathology and Immunology [facility], as part of an ongoing quality nurse program and in compliance with federally mandated [...] characteristics determined by the [facility], [facility] Department of Pathology and Immunology. It has not been cleared or approved by the U.S. Food and Drug Administration. Any test designated as LDT was developed and its performance characteristics determined by [facility]. It has not been cleared or approved by the FDA. This test is used for clinical purposes and should not be regarded as investigational or for research. Report images and/or scanned reports, if included, only viewable in PDF version of report. Beatriz Lee MD LAB PATHOLOGY ORDERA BLES Final Result [facility] [address] [facility] [address] [place] [address] * XR Scoliosis 6 or More Views [...] Outside Reference (07/12/2024 5:48 PM CDT) Impressions [facility] - 07/12/2024 5:48 PM CDT These images are for Reference purposes only and have not been reviewed by [facility]iology. There will be no report generated by a [facility] Radiologist. Narrative [facility] - 07/12/2024 5:48 PM CDT EXAMINATION: Images For Reference Purposes Only Result [facility] Jessee Morton MD IMG CT PROCEDURES Final Re sult [facility] * Neuro CT Outside Reference (07/12/2024 5:46 PM CDT) Impressions [facility] - 07/12/2024 5:46 PM CDT These images are for Reference purposes only and have not been reviewed by [facility]. There will be no report generated by a [facility] Radiologist. Narrative [facility] - 07/12/2024 5:46 PM CDT EXAMINATION: Images For Reference Purposes Only Result [facility] Jessee Morton MD IM CT PROCEDURES Final Re sult Performing Organization Address [facility] de Phone Number [email or web address] * Neuro MR Outside Reference (07/12/2024 5:44 PM CDT) Impressions [facility] - 07/12/2024 5:44 PM CDT These images are for Reference purposes only and have not been reviewed by [facility]. There will be no report generated by a [facility] Radiologist. Narrative [facility] - 07/12/2024 5:44 PM CDT EXAMINATION: Images For Reference Purposes Only Result [facility] Jessee Morton MD [facility] MRI PROCEDURES Final R esult Performing Organization Address [facility] de Phone Number [email or web address] * Neuro MR Outside Reference (07/12/2024 5:43 PM CDT) Impressions [facility] - 07/12/2024 5:43 PM CDT These images are for Reference purposes only and have not been reviewed by [facility]. There will be no report generated by a [facility] Radiologist. Narrative [facility] - 07/12/2024 5:43 PM CDT EXAMINATION: Images For Reference Purposes Only Result [facility] Jessee Morton MD [facility] MRI PROCEDURES Final R esult Performing Organization Address [facility] de Phone Number [email or web address] * XR Outside Reference (07/09/2024 8:48 AM CDT) Impressions [facility] - 07/09/2024 8:48 AM CDT These images are for Reference purposes only and have not been reviewed by [facility]. There will be no report generated by a [facility] Radiologist. Narrative [facility] - 07/09/2024 8:48 AM CDT EXAMINATION: Images For Reference Purposes Only Result [facility] Jessee Morton MD IMG XR PROCEDURES Final Re sult Performing Organization Address [facility] de Phone Number [email or web address] * XR Outside Reference (07/09/2024 8:46 AM CDT) Impressions [facility] - 07/09/2024 8:46 AM CDT These images are for Reference purposes only and have not been reviewed by [facility]. There will be no report generated by a [facility] Radiologist. Narrative [facility] - 07/09/2024 8:46 AM CDT EXAMINATION: Images For Reference Purposes Only Jessee Morton MD IMG XR PROCEDURES Final Re sult Performing Organization Address [facility] de Phone Number [email or web address] * XR Outside Reference (07/09/2024 8:44 AM CDT) Impressions [facility] - 07/09/2024 8:44 AM CDT These images are for Reference purposes only and have not been reviewed by [facility]. There will be no report generated by a [facility] Radiologist. Narrative [facility] - 07/09/2024 8:44 AM CDT EXAMINATION: Images For Reference Purposes Only Jessee Morton MD IMG XR PROCEDURES Final Re sult Performing Organization Address [facility] de Phone Number [email or web address] * Hepatitis panel, acute (04/16/2020 6:35 AM PSYCHOLOGICAL OPERATIONS SPECIALIST) Hep A IgM Nonreactive Nonreactive [facility] Comment: Interpretive Data: If Hep A IgM Ab is reported as Equivocal, a new sample should be drawn in two weeks for testing. Current interpretive data was last revised on 19. Hep B core IgM Nonreactive Nonreactive [facility] Comment: Interpretive Data If HepB Core IgM Ab is reported as Equivocal, a new sample should be drawn in two weeks for testing. Current interpretive data was last revised on 19. Hep C Ab Nonreactive Nonreactive [facility] Comment:Antibodies to HCV no t detected. Does NOT exclude the possibility of recent exposure to HCV. HepBsAg Nonreactive Nonreactive [facility] Blood specimen (specimen) 04/16/2020 6:35 AM PSYCHOLOGICAL OPERATIONS SPECIALIST 04/16/2020 7:34 AM PSYCHOLOGICAL OPERATIONS SPECIALIST us Jacob Gates MD LAB MICROBIOLOGY - GENER AL ORDERABLES Final Result [facility] [place] [address] from Last 3 Months or Most Recently Relevant to Health Maintenance Insurance Tomorrowish OPEN ACCESS [facility] [place] [place] Advance Directives For more information, please contact: [phone] * Full Code (Latest Code Status on [...] 6:15 AM 07/25/2019 11:51 PM Care Teams Shell Molding Roller Blast Operator Relationship Specialty Start Date End Date Lyly Fiore NP [address] [place] [address] PCP - General Nurse Practitioner 05/29/24 Beatriz Lee MD [address] [place] [address] Referring Physician Gastroenterology 07/25/19 Taylor Kitchen, safety teacherFilling Separator 05/29/24
--- OUTSIDE RECORDS SUMMARY | 2024-10-08 14:50 | XMS_ITS ---
Author Organization [facility] Address [address] [place] [address] Care Team Providers Care Chain Mortiser Operator Name Role Phone Beatriz Lee MD Unavailable [phone]- [phone] Lyly Fiore MULT AU MATIC OPERATOR Primary Care Provider Taylor Kitchen RN Unavailable Unav ailable Transplant Episode Liver Recipient [facility] ([place], [place]) - [facility] Transplanted on 05/09/2020 Marked as Active Follow-up on 07/01/2024 Reason: In Transition Process Liver CoordinatorTayolr Kitchen RN Phone: N/A Fax: N/A Email: N/A Transplanted Elsewhere: [facility] ([place], [place]) - [facility] Coordinator: Phone: Fax: [place] 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
--- OUTSIDE RECORDS SUMMARY | 2024-10-08 14:50 | XMS_ITS | Encounter Summary ---
Author Organization [facility] Healthcare Address [address] [place] [address] Care Team Providers Care Coordinate Measuring Machine Programmer Name Role Phone Beatriz Lee MD Unavailable [phone]- [phone] Lyly Fiore LIFE CLAIMS EXAMINER Primary Care Provider Taylor Kitchen RN Unavailable Unav ailable Reason for Visit * Reason Onset Date Comments PMC Preprocedure 09/19/2024 Encounter Details Date Type Department Care Team (Late st Contact Info) Description 09/19/2024 Telephone [facility] [address] [facility] [address] [place], [place] [id number] Igor Graham MD [address] [employer] [employer], [place] [id number] PMC Preprocedure Social History Tobacco Use Types Packs/Day Years Used Date Smoking Tobacco: Every Day Cigarettes Smokeless Tobacco: Never Comments:1 cigarette day Alcohol Use Standard Drinks/Week Comments Never 0 (1 standard drink = 0.6 oz pur e alcohol) rare [facility] Utilities Answer Date Recorded In the past 12 months has [employer], gas, oil, or water company threatened to [...] often do you attend chur ch or religion services? Never 09/03/2024 Do you belong to [...] any time in the past 12 m [facility], were you homeless or living in a alf (including now)? No 09/03/2024 Personal Safety Answer Date Recorded Have you ever been in or are you currently in a harmful physical or emotional relationship or is someone making you feel afraid or unsafe? Denies 09/02/2024 Comments No Sex and Gender Information Value Date Recorded Sex Assigned at Not on file Legal Sex Female 10:10 PM RODEO PERFORMER Gender Identity Not on file Sexual Orientation [...] on filedocumented in this encounter Care Teams Coordinate Measuring Machine Programmer Relationship Specialty Start Date End Date Lyly Fiore NP [address] [place] [address] PCP - General Nurse Practitioner 05/29/24 Beatriz Lee MD [address] [place] [address] Referring Physician Gastroenterology 07/25/19 Taylor Kitchen, lithograph operatorDiamond Broker 05/29/24 documented as of this encounter
--- OUTSIDE RECORDS SUMMARY | 2024-10-08 14:50 | XMS_ITS | Encounter Summary ---
Author Organization [facility] Healthcare Address [address] [place] [address] Care Team Providers Care Plastic Sheets Finishing Supervisor Name Role Phone Beatriz Lee MD Unavailable [phone]- [phone] Lyly Fiore SCOUTS Primary Care Provider Taylor Kitchen RN Unavailable Unav ailable Encounter Details Date Type Department Care Team (Late st Contact Info) Description 08/15/2024 Results Follow-Up [facility] Transplant Liver [address] 14[address]22-[address] [place] [address] Taylor Kitchen RN Surgical pathology Social History [...] on file Legal Sex Female 10:10 PM AUTOMOTIVE ELECTRICIAN Gender Identity Not on file Sexual Orientation [...] documented as of this encounter Care Teams Plastic Sheets Finishing Supervisor Relationship Specialty Start Date End Date Lyly Fiore NP [address] [place] [address] PCP - General Nurse Practitioner 05/29/24 Beatriz Lee MD [address] [place] [address] Referring Physician Gastroenterology 07/25/19 Taylor Kitchen, hospital supervisorLabel Printing Machinist 05/29/24 documented as of this encounter
[2024-10-08] MEDS: HYDROmorphone HCL INJ (*CRX) 2 MG/ML VIAL 0.5 MG IV PUSH (15:12)
[2024-10-08] MEDS: PROCHLORPERAZINE EDISYLATE 10 MG/2 ML VIAL 5 MG IV PUSH (15:14)
[2024-10-08] MEDS: SODIUM CHLORIDE 0.9% IV 500 ML 999 ML IV CONT (15:18)
[2024-10-08 16:05] VITALS: BP 138/94; PULSE 104; RESP 16; TEMP 36.6; O2SAT 97
== END 2024-10-08 16:15 | disposition home or self-care (01) ==
PROVIDERS: Emergency Provider Family Medicine
DX: G43.909 Migraine, unspecified, not intractable, without status migrainosus (principal); M54.50 Low back pain, unspecified; G89.29 Other chronic pain
CPT/HCPCS: 96361; 96374; 96375; 99284; J0780; J1171; J1200; J7040

== ENCOUNTER 2024-10-19 22:03 | Emergency (ER) | payer MEDICAID, SELFPAY ==
[2024-10-19 22:03] VITALS: BP 168/87; PULSE 81; RESP 16; TEMP 36.3; O2SAT 97
--- OUTSIDE RECORDS SUMMARY | 2024-10-19 22:09 | XMS_ITS | Clinical Summary ---
Author Organization [facility] Address [address] [place] [address] Care Team Providers Care Cover Cutter Machine Name Role Phone Chelsyolive Lyly ELISA Primary Care Provider [phone] Allergies Active Allergy Reactions Criticality Noted Date [...] Date Acute CHF ([facility]) 02/20/2024 Viral infection 02/20/2024 Rectus sheath hematoma, initial encounter 2017 Cervical dysplasia 10/26/2016 History of vulvar dysplasia 10/26/2016 Gastric ulcer 10/24/2016 Pancreatitis ([facility]) 10/24/2016 Chronic kidney disease 10/24/2016 Anemia, unspecified 05/04/2012 Benign gestational thrombocytopenia ([facility]) History of cone biopsy of cervix 01/04/2012 History of liver transplant ([facility]) Acute pharyngitis 11/19/2010 Abdominal pain 11/13/2010 Aphthous ulcer 11/01/2010 Anxiety 07/21/2010 Encounters Date Type Department Care Team Description 10/18/2024 9:00 PM CDT - 10/18/2024 10:23 PM CDT Emergency [facility] Emergency Services [facility] [place] [address] Allen Foster MD Headache Discharge Disposition: Home or Self Care (Routine Discharge) 10/18/2024 Travel 10/17/2024 9:23 PM CDT - 10/17/2024 11:06 PM CDT Emergency [facility] [address] [place] [address] [place] [address] Karmen Byrd PA Headache; Back Pain Discharge Disposition: Home or Self Care (Routine Discharge) 10/17/2024 Travel 10/15/2024 9:28 AM CDT - 10/15/2024 11:59 AM CDT Emergency [facility] [address] [place] [address] Bharat Carroll MD McHood, Jillian M, LANDSCAPER Headache; Back Pain Discharge Disposition: Home or Self Care (Routine Discharge) 10/15/2024 Travel 10/11/2024 5:04 AM CDT - 10/11/2024 5:19 AM CDT Emergency [facility] [address] [place] [address] Prasad Metcalf MD Headache Recurrent Or Know Dx Migraine; Back Pain Discharge Disposition: Home or Self Care (Routine Discharge) 10/11/2024 Travel 09/14/2024 12:28 AM CDT - 09/14/2024 1:50 AM CDT Emergency [facility] [address] [place] [address] Zack cK MD Back Pain; Headache Discharge Disposition: Home or Self Care (Routine Discharge) 09/13/2024 Travel 08/28/2024 10:52 PM CDT - 08/29/2024 3:30 AM CDT Emergency [facility] [address] [place] [address] Radu Loya MD Cough; Vomiting; URI Discharge Disposition: Home or Self Care (Routine Discharge) 08/28/2024 Travel 08/26/2024 10:28 PM CDT - 08/27/2024 12:30 AM CDT Emergency [facility] [address] [place] [address] Karmen Byrd PA Medical Screening Discharge Disposition: Home or Self Care (Routine Discharge) 08/26/2024 Travel 08/08/2024 10:19 PM CDT - 08/08/2024 10:39 PM CDT Emergency [facility] [address] [place] [address] Roopa Damon NP Back Pain Discharge Disposition: Home or Self Care (Routine Discharge) 08/08/2024 Travel 08/07/2024 11:33 PM CDT - 08/08/2024 12:45 AM CDT Emergency [facility] [address] [place] [address] Danish Menjivar MD Back Pain; Urinary Symptoms Discharge Disposition: Home or Self Care (Routine Discharge) 08/07/2024 Travel 07/31/2024 1:03 PM CDT - 07/31/2024 2:31 PM CDT Emergency [facility] Emergency [address] [place] [address] Back Pain; Leg Pain Discharge Disposition: Home or Self Care (Routine Discharge) 07/31/2024 12:15 AM CDT - 07/31/2024 1:13 AM CDT Emergency [facility] [address] [place] [address] Back Pain Discharge Disposition: Left Against Medical [...] any time in the past 12 m [facility], were you homeless or living in a fci (including now)? No 02/20/2024 Comments No Sex and Gender Information Value Date Recorded Sex Assigned at Female 04/05/2024 4:26 PM TELECOMMUNICATIONS ANALYST Legal Sex Female 9:15 PM TELECOMMUNICATIONS ANALYST Gender Identity Not on file Sexual Orientation Not on file Last Filed Vital Signs Vital Sign Reading Time Taken Comments Blood Pressure 153/94 10/18/2024 9:05 PM CDT Pulse 74 10/18/2024 9:05 PM CDT Temperature 36.7 C (98 F) 10/18/2024 9:05 PM CDT Respiratory Rate 16 10/18/2024 9:05 PM CDT Oxygen Saturation 99% 10/18/2024 9:05 PM CDT Inhaled Oxygen Concentration - - Weight 81.6 kg (180 lb) 10/18/2024 9:05 PM CDT Height 157.5 cm (5' 2) 10/18/2024 9:05 PM CDT Body Mass Index 32.92 10/18/2024 9:05 PM CDT Plan of Treatment Health Maintenance [...] 136 - 145 MMOL/L 08/29/2024 12:04 AM CDT [facility] POTASSIUM S/P/B 4.0 3.6 - 5.0 MMOL/L 08/29/2024 12:04 AM CDT [facility] CHLORIDE S/P/B 111 97 - 115 MMOL/L 08/29/2024 12:04 AM [facility] CO2 26.6 21.0 - 32.0 MMOL/L 08/29/2024 12:04 AM [facility] GLUCOSE 104(H) 70 - 99 MG/DL 08/29/2024 12:04 AM [facility] Comment: FASTING GLUCOSE 100 TO 125 MG/DL IS CONSISTENT WITH IMPAIRED FASTING GLUCOSE. FASTING GLUCOSE >125 MG/DL IS CONSISTENT WITH DIABETES. RANDOM GLUCOSE >200 MG/DL WITH HYPERGLYCEMIC SYMPTOMS IS CONSISTENT WITH DIABETES. PER ADA GUIDELINES BUN 23(H) 7 - 18 MG/DL 08/29/2024 12:04 AM [facility] CREATININE S/P/B 2.26(H) 0.55 - 1.02 MG/DL 08/29/2024 12:04 AM [facility] CALCIUM S/P/B 8.5 8.5 - 10.1 MG/DL 08/29/2024 12:04 AM [facility] BILIRUBIN TOTAL S/P/B 1.6(H) 0.2 - 1.0 MG/DL 08/29/2024 12:04 AM [facility] Comment: THIS ASSAY IS NOT RECOMMENDED FOR PATIENTS UNDERGOING TREATMENT WITH ELTROMBOPAG DUE TO THE POTENTIAL FOR FALSELY ELEVATED RESULTS. ALKALINE PHOSPHATASE S/P/B 244(H) 37 - 98 U/L 08/29/2024 12:04 AM [facility] AST 25 15 - 37 U/L 08/29/2024 12:04 AM [facility] ALT 21 13 - 56 U/L 08/29/2024 12:04 AM [facility] TOTAL PROTEIN S/P/B 6.2(L) 6.4 - 8.0 G/DL 08/29/2024 12:04 AM [facility] ALBUMIN S/P/B 3.3(L) 3.4 - 5.0 G/DL 08/29/2024 12:04 AM CDT [facility] ANION GAP 2.4 2.0 - 10.0 MMOL/L 08/29/2024 12:04 AM T [facility] OSMOLALITY (CALC) 294 MOSM/KG 025 12:04 AM T [facility] GFR ESTIMATE 27(L) >90 ML/MIN/1. 73 M2 08/29/2024 12:04 AM CDT [facility] GFR NOTES GFR REFERENCE S: 08/29/2024 12:04 AM T [facility] Comment: THE ESTIMATED GFR IS [...] CDT Radu Loya MD LABORATORY Final Result [facility] [address] [place] [address], * (ABNORMAL) CBC W/DIFF AUTOMATED (08/28/2024 11:31 PM CDT) Only the most recent of3 resultswithin the time period is included. WBC 5.58 4.00 - 10.80 x10'3/uL 08/28/2024 11:44 PM CDT [facility] RBC 3.09(L) 4.10 - 5.40 x10'6/uL 08/28/2024 11:44 PM T [facility] HGB 12.4 12.0 - 16.0 G/DL 08/28/2024 11:44 PM T [facility] HCT 33.6(L) 36.0 - 47.0 % 08/28/2024 11:44 PM T [facility] MCV 108.7(H) 78.0 - 100.0 FL 08/28/2024 11:44 PM T [facility] MCH 40.1(H) 27.0 - 31.0 PG 08/28/2024 11:44 PM T [facility] MCHC 36.9(H) 33.0 - 36.0 G/DL 08/28/2024 11:44 PM T [facility] RDW 13.9 11.5 - 14.5 % 08/28/2024 11:44 PM T [facility] PLT 123(L) 150 - 350 x10'3/uL 08/28/2024 11:44 PM T [facility] MPV 11.0(H) 7.4 - 10.4 FL 08/28/2024 11:44 PM [facility] DIFFERENTIAL TYPE AUTOMATED 08/28/2024 11:44 PM T [facility] SEG NEUTROPHILS 73.3 % 11:44 PM T [facility] LYMPHOCYTES 15.6 % 08/28/2024 11:44 PM T [facility] MONOCYTES 8.6 % 08/28/2024 11:44 PM T [facility] EOSINOPHILS 1.6 % 08/28/2024 11:44 PM T [facility] BASOPHILS 0.2 % 08/28/2024 11:44 PM CDT [facility] IMMATURE GRANS % 0.7 % 08/29/19 25 11:44 PM CDT [facility] NRBC 0.0 % 08/28/2024 11:44 PM CDT [facility] ABS. NEUTROPHILS 4.09 1.60 - 8.30 x10'3/uL 08/28/2024 11:44 PM CDT [facility] ABS. LYMPHOCYTES 0.87 0.80 - 4.70 x10'3/uL 08/28/2024 11:44 PM CDT [facility] ABS. MONOCYTES 0.48 0.00 - 1.50 x10'3/uL 08/28/2024 11:44 PM CDT [facility] ABS. EOSINOPHILS 0.09 0.00 - 0.40 x10'3/uL 08/28/2024 11:44 PM CDT [facility] ABS. BASOPHILS 0.01 0.00 - 0.20 x10'3/uL 08/28/2024 11:44 PM CDT [facility] ABS. IMMATURE GRANULOCYTES 0.04(H) 0.00 - 0.03 x10'3/uL 08/28/2024 11:44 PM CDT [facility] ABS. NUCLEATED RBC'S 0.00 0.00 - 0.01 x10'3/uL 08/28/2024 11:44 PM CDT [facility] 08/28/2024 11:3 1 PM CDT Radu Loya MD LABORATORY Final Result [facility] [address] [place] [address], * Critical Care (08/28/2024 11:05 PM CDT) [...] or life-threatening deterioration of the following conditions: MATERNAL FETAL PHYSICIAN failure or compromise and respiratory failure Critical [...] 11:20 PM Narrative 08/26/2024 11:21 PM [address] [place], [place] [address] EXAMINATION: Chest X-Ray 2 View EXAM DATE/TIME: [...] Procedure Note David Hart MD - 08/26/2024 [facility] [place] [address] [place], [place] [address] EXAMINATION: Chest X-Ray 2 View EXAM DATE/TIME: [...] By: David Hart MD, 08/26/2024 11:20 PM [facility] [place] GENERAL IMAGING Final R esult * CORONAVIRUS (COVID-19) ANTIGEN (08/26/2024 10:39 PM CDT) CORONAVIRUS ANTIGEN IA NEGATIVE NEGATIVE 08/26/2024 11:07 PM CDT [facility] Comment: NEGATIVE RESULTS SHOULD BE TREATED [...] SPECIMEN TYPE NASAL 08/26/2024 10:40 PM CDT [facility] NASAL NASAL STRUCTURE / Unknown 08/26/2024 10:39 PM CDT [facility] MICROBIOLOGY - GENERAL ORDERABLES Final Result Performing Organization Address City/[facility]/ZIP Co de Phone Number [facility] [address] [place] [address], * INFLUENZA A & B (08/26/2024 10:39 PM CDT) SPECIMEN TYPE (INFLUENZA) NASAL 08/26/2024 10:40 PM CDT [facility] INFLUENZA A NEGATIVE NEGATIVE 08/26/2024 11:06 PM CDT [facility] INFLUENZA B NEGATIVE NEGATIVE 08/26/2024 11:06 PM CDT [facility] NASAL STRUCTURE / Unknown 08/26/2024 10:39 PM CDT Karmen EDMOND MICROBIOLOGY - GENERAL ORDERABLES Final Result Performing Organization Address [facility] Co de Phone Number [facility] [address] [place] [address], * (ABNORMAL) URINALYSIS (08/26/2024 10:39 PM CDT) Only the most recent of2 resultswithin the time period is included. SPECIMEN TYPE URINE VOIDED 10:40 PM CDT [facility] COLOR (U) YELLOW 08/26/2024 11:02 PM CDT [facility] TRANSPARENCY CLEAR 08/26/2024 11:02 PM CDT [facility] SPECIFIC GRAVITY (U) 1.016 1.002 - 1.035 08/26/2024 11:02 PM CDT [facility] U PH 6.0 5.0 - 9.0 08/26/2024 11:02 PM CDT [facility] LEUKOCYTES (U) NEGATIVE NEGATIVE 08/26/2024 11:02 PM CDT [facility] NITRITES NEGATIVE NEGATIVE 08/26/2024 11:02 PM T [facility] PROTEIN RANDOM (U) TRACE(A) NEGATIVE 08/26/2024 11:02 PM CDT [facility] GLUCOSE (U) NORMAL NORMAL 08/26/2024 11:02 PM T [facility] KETONES MG/DL (U) NEGATIVE NEGATIVE 08/26/2024 11:02 PM T [facility] UROBILINOGEN 2.0(H) 0 - 1 EU/DL 08/26/2024 11:02 PM CDT [facility] BILIRUBIN (U) NEGATIVE NEGATIVE 08/26/2024 11:02 PM T [facility] BLOOD (U) NEGATIVE NEGATIVE 08/26/2024 11:02 PM T [facility] MUCUS FEW 08/26/2024 11:02 PM T [facility] WBC/HPF 0-5 /HPF 08/26/2024 11:02 PM T [facility] RBC/HPF 0-5 /HPF 08/26/2024 11:02 PM T [facility] SQUAMOUS EPITHELIALS MODERATE 08/26/2024 11:02 PM T [facility] URINE SPECIMEN FROM URETHRA / Unknown 08/26/2024 10:39 PM CDT Karmen EDMOND URINE ORDERABLES Final Result [facility] [address] [place] [address], * STREP A RAPID (08/26/2024 10:39 PM CDT) SPECIMEN SOURCE THROAT 08/26/2024 10:40 PM CDT [facility] RAPID STREP TEST NEGATIVE NEGATIVE 08/26/2024 11:06 PM CDT [facility] STRUCTURE OF ANTERIOR PORTION OF NECK / Unknown 08/26/2024 10:39 PM CDT us Karmen EDMOND MICROBIOLOGY - GENERAL ORDERABLES Final Result Performing Organization Address City/[facility]/ZIP Co de Phone Number [facility] [address] [place] [address], [place] [phone] * MAGNESIUM (08/26/2024 10:39 PM CDT) Pathologist [facility] MAGNESIUM 1.6 1.6 - 2.6 MG/DL 08/26/2024 11:20 PM CDT [facility] Comment:RESULT QUESTIONABLE DUE TO HEMOLYSIS, CONSIDER RECOLLECTION. 08/26/2024 10:3 9 PM CDT us Karmen EDMOND LABORATORY Final R esult Performing Organization Address City/[facility]/ZIP Co de Phone Number [facility] [address] [place] [address], [place] [phone] * (ABNORMAL) BASIC METABOLIC PANEL (08/08/2024 12:07 AM CDT) Pathologist [facility] SODIUM S/P/B 137 136 - 145 MMOL/L 08/08/2024 12:36 AM CDT [facility] POTASSIUM S/P/B 4.5 3.5 - 5.1 MMOL/L 08/08/2024 12:36 AM CDT [facility] CHLORIDE S/P/B 111 97 - 115 MMOL/L 08/08/2024 12:36 AM CDT [facility] CO2 19.6(L) 21.0 - 32.0 MMOL/L 08/08/2024 12:36 AM CDT [facility] GLUCOSE 144(H) 74 - 106 MG/DL 08/08/2024 12:36 AM T [facility] BUN 28(H) 7 - 18 MG/DL 08/08/2024 12:36 AM CDT [facility] CREATININE S/P/B 2.01(H) 0.55 - 1.02 MG/DL 08/08/2024 12:36 AM CDT [facility] CALCIUM S/P/B 9.2 8.5 - 10.1 MG/DL 08/08/2024 12:36 AM CDT [facility] ANION GAP 6.4 2.0 - 10.0 MMOL/L 08/08/2024 12:36 AM T [facility] OSMOLALITY (CALC) 292 MOSM/KG 025 12:36 AM T [facility] Comment:REFERENCE RANGE NOT ESTABLISHED GFR ESTIMATE 31(L) >90 ML/MIN/1. 73 M2 08/08/2024 12:36 AM T [facility] GFR NOTES GFR REFERENCE S: 08/08/2024 12:36 AM T [facility] Comment: THE ESTIMATED GFR IS [...] ml/min/1.73 m2 08/08/2024 12:0 7 AM CDT Danish Menjivar MD LABORATORY Final Result [facility] [address] [place] [address], [id number] * CULTURE URINE (08/07/2024 11:55 PM CDT) SPEC DESCRIPTION URINE, UNSPECIFIED 08/07/2024 11:55 PM CDT [facility] SPECIAL REQUESTS NO SPECIAL REQUEST 08/07/2024 11:55 PM CDT [facility] CULTURE RESULT NO GROWTH (< OR = 1,000 CFU/ML) 08/09/2024 9:03 AM CDT [facility] URINE SPECIMEN / Unknown 08/07/2024 11:55 PM CDT 08/08/2024 12:15 AM CDT us Danish Menjivar MD MICROBIOLOGY - GENERAL ORDER KAREN Final Result Performing Organization Address [facility] Co de Phone Number [facility] [address] [place] [address], [phone] * HUMAN PAPILLOMAVIRUS, HIGH-RISK TYPES (06/20/2022 12:00 PM CDT) SPECIMEN CERVICAL/END OCERVICAL 06/22/2022 8:18 AM CDT [facility] HPV DNA HIGH RISK NEGATIVE NEGATIVE 06/22/2022 7:35 PM CDT [facility] Comment:SEE CYTOLOGY REPORT 06/20/2022 12:0 0 PM CDT us Sekou Scherer MD PATHOLOGY/CYTOLOGY ORDER KAREN Final Result Performing Organization Address City/[facility]/ZIP Co de Phone Number [facility] [address] [place] [address], [place] [phone] * Cytopath Cerv/Vag Thin Layer (06/20/2022 7:46 AM CDT) THIN PREP PAP [address] [address] Department of Pathology Pathology Report CERVICAL/VAGINAL PAP SMEAR REPORT Name: MISHA BROWNE Age: 7 1980 (Age: 41) Location: [facility] Sex: F Collected Date: 06/20/2022 Hospital #: [id number] Date Received: 06/22/2022 Date Reported: 06/24/2022 Provider: [...] Cohen (ASCP) CLINICAL HISTORY Z12.4 PAP HISTORY-NILM ENCAPSULATOR SURGICAL HISTORY-HPV+ 05/17/16 LASER/CRYOTHERAPY ThinPrep Pap Test [...] is not effective in detecting cervical adenocarcinoma. [facility] () [facility] 06/20/2022 7:46 AM CDT 06/22/2022 7:46 AM CDT Comment:CERVICAL/ENDOCERVICA L Sekou Scherer MD PATHOLOGY/CYTOLOGY ORDER KAREN Final Result [facility] [address] [place] [address], [place] [phone] from Last 3 Months or Most Recently Relevant to Health Maintenance Insurance MEDICAID Advance Directives * Full Code (Latest Code Status on File) Date Activated Date Inactivated Comments 02/20/2024 1:27 AM 02/20/2024 11:44 AM * Full Code Date Activated Date Inactivated Comments 06/21/2017 12:22 AM 06/21/2017 8:16 PM Care Teams Cover Cutter Machine Relationship Specialty Start Date End Date Lyly Fiore NP [address] [place] [address] PCP - General NURSE PRACTITIONER 04/14/24
--- OUTSIDE RECORDS SUMMARY | 2024-10-19 22:09 | XMS_ITS | Encounter Summary ---
Author Organization [facility] Address [address] [place] [address] Care Team Providers Care First Calender Worker Name Role Phone Hermes Ramirez MD Primary Care Provider Reason for Visit * Reason Onset Date Comments Refill Request 02/15/2021 Encounter Details Date Type Department Care Team ([facility] st Contact Info) Description 02/15/2021 Refill [facility] [address] [id number] Allen Manzano PAVasquez [address] [facility] [address] [place] [address] Refill Request Social History Tobacco [...] file Legal Sex Female 1:03 PM INFORMATION SYSTEMS SUPERVISOR Gender Identity Not on file Sexual Orientation Not on file COVID-19 Exposure Response Date Recorded In the last month, have you been in contact with someone who was confirmed or suspected to have Coronavirus / COVID-19? Yes 02/17/2021 2:11 PM INFORMATION SYSTEMS SUPERVISOR documented as of this encounter Plan of [...] as of this encounter Care Teams First Calender Worker Relationship Specialty Start Date End Date Hermes Ramirez MD [address] [place] [address] PCP - General 05/28/20 documented as of this encounter
--- OUTSIDE RECORDS SUMMARY | 2024-10-19 22:09 | XMS_ITS | Encounter Summary ---
Author Organization [facility] Address [address] [place] [address] Care Team Providers Care Secondary Special Education Teacher Name Role Phone Beatriz Lee MD Unavailable +- [phone] Lyly Fiore CLOTH PRINTING INSPECTOR Primary Care Provider Taylor Kitchen RN Unavailable Unav ailable Reason for Visit * Reason Onset Date Comments PMC Preprocedure 09/19/2024 Encounter Details Date Type Department Care Team (Late st Contact Info) Description 09/19/2024 Telephone [facility] [address] [facility] [place] [address] [place], [place] [id number] Igor Graham MD [address] [place] [address] PMC Preprocedure Social History Tobacco Use Types Packs/Day Years Used Date Smoking Tobacco: Every Day Cigarettes Smokeless Tobacco: Never Comments:1 cigarette day Alcohol Use Standard Drinks/Week Comments Never 0 (1 standard drink = 0.6 oz pur e alcohol) rare [facility] Utilities Answer Date Recorded In the past 12 months has [employer], gas, oil, or water company threatened to [...] time in the past 12 m [facility], were you homeless or living in a detention (including now)? No 09/03/2024 Personal Safety Answer Date Recorded Have you ever been in or are you currently in a harmful physical or emotional relationship or is someone making you feel afraid or unsafe? Denies 09/02/2024 Comments No Sex and Gender Information Value Date Recorded Sex Assigned at Not on file Legal Sex Female 10:10 PM TRAFFIC SIGN ERECTION SUPERVISOR Gender Identity Not on file Sexual [...] on filedocumented in this encounter Care Teams Secondary Special Education Teacher Relationship Specialty Start Date End Date Lyly Fiore NP [address] [place] [address] PCP - General Nurse Practitioner 05/29/24 Beatriz Lee MD [address] [place] [address] Referring Physician Gastroenterology 07/25/19 Taylor Kitchen, putty mixer and applierTie Bucker 05/29/24 documented as of this encounter
--- OUTSIDE RECORDS SUMMARY | 2024-10-19 22:09 | XMS_ITS | Encounter Summary ---
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
--- OUTSIDE RECORDS SUMMARY | 2024-10-19 22:09 | XMS_ITS | Clinical Summary ---
Author Organization [facility] Address [address] [place] [address] Care Team Providers Care Manager Behavior Name Role Phone Beatriz Lee MD Unavailable [phone] Lyly Fiore SALES AND SERVICE REPRESENTATIVE Primary Care Provider Taylor Kitchen RN Unavailable [...] be different from the original. Lab: [facility]. . . Pharmacy: [place], [place] Patient enrolled in [employer] assistance program for Envars[employer] until 03/2025 -[facility] [employer] pharmacy for script Problem Noted Date Diagnosed [...] with baseline creatinine ~2. Previously followed at [facility], but has she has been wanting to transfer care to [place] but has not been able to schedule an appointment. She follows with [facility]. Per Liver Transplant office [...] with baseline creatinine ~2. Previously followed at [facility], but has she has been wanting to transfer care to [place] but has not been able to schedule an appointment. She follows with [facility]. Per Liver Transplant office [...] with baseline creatinine ~2. Previously followed at [facility], but has she has been wanting to transfer care to [place] but has not been able to schedule an appointment. She follows with [facility]. Per Liver Transplant office [...] with baseline creatinine ~2. Previously followed at [facility], but has she has been wanting to transfer care to [place] but has not been able to schedule an appointment. She follows with [facility]. Per Liver Transplant office [...] with baseline creatinine ~2. Previously followed at [facility], but has she has been wanting to transfer care to [place] but has not been able to schedule an appointment. She follows with [facility]. Per Liver Transplant office [...] with baseline creatinine ~2. Previously followed at [facility], but has she has been wanting to transfer care to [place] but has not been able to schedule an appointment. She follows with [facility]. Per Liver Transplant office [...] with baseline creatinine ~2. Previously followed at [facility], but has she has been wanting to transfer care to [place] but has not been able to schedule an appointment. She follows with [facility]. Per Liver Transplant office [...] with baseline creatinine ~2. Previously followed at [facility], but has she has been wanting to transfer care to [place] but has not been able to schedule an appointment. She follows with [facility]. Per Liver Transplant office [...] with baseline creatinine ~2. Previously followed at [facility], but has she has been wanting to transfer care to [place] but has not been able to schedule an appointment. She follows with [facility]. Per Liver Transplant office [...] with baseline creatinine ~2. Previously followed at [facility], but has she has been wanting to transfer care to [place] but has not been able to schedule an appointment. She follows with [facility]. Per Liver Transplant office [...] with baseline creatinine ~2. Previously followed at [facility], but has she has been wanting to transfer care to [place] but has not been able to schedule an appointment. She follows with [facility]. Per Liver Transplant office [...] we would not be able to prescribe remote computer terminal operator opioids on discharge. Discussed importance of [...] we would not be able to prescribe nursing home opioids on discharge. Discussed importance of [...] we would not be able to prescribe nursing home opioids on discharge. Discussed importance of [...] we would not be able to prescribe remote computer terminal operator opioids on discharge. Discussed importance of [...] we would not be able to prescribe remote computer terminal operator opioids on discharge. Discussed importance of [...] we would not be able to prescribe remote computer terminal operator opioids on discharge. Discussed importance of [...] we would not be able to prescribe remote computer terminal operator opioids on discharge. Discussed importance of [...] we would not be able to prescribe nursing home opioids on discharge. Discussed importance of [...] we would not be able to prescribe nursing home opioids on discharge. Discussed importance of [...] we would not be able to prescribe remote computer terminal operator opioids on discharge. Discussed importance of [...] we would not be able to prescribe nursing home opioids on discharge. Discussed importance of [...] we would not be able to prescribe nursing home opioids on discharge. Discussed importance of [...] with baseline creatinine ~2. Previously followed at [facility], but has she has been wanting to transfer care to [place] but has not been able to schedule an appointment. She follows with [facility]. Per Liver Transplant office [...] with baseline creatinine ~2. Previously followed at [facility], but has she has been wanting to transfer care to [place] but has not been able to schedule an appointment. She follows with [facility]. Per Liver Transplant office [...] with baseline creatinine ~2. Previously followed at [facility], but has she has been wanting to transfer care to [place] but has not been able to schedule an appointment. She follows with [facility]. Per Liver Transplant office [...] with baseline creatinine ~2. Previously followed at [facility], but has she has been wanting to transfer care to [place] but has not been able to schedule an appointment. She follows with [facility]. Per Liver Transplant office [...] with baseline creatinine ~2. Previously followed at [facility], but has she has been wanting to transfer care to [place] but has not been able to schedule an appointment. She follows with [facility]. Per Liver Transplant office [...] with baseline creatinine ~2. Previously followed at [facility], but has she has been wanting to transfer care to [place] but has not been able to schedule an appointment. She follows with [facility]. Per Liver Transplant office [...] Transplant starting process of assuming care from [facility], but in short term they recommend patient follow up with renal transplant at [facility]. - She is NOW actively enrolled in the [employer] free patient assistance program through mar 2025 - script needs to be sent to [facility] (sent). Hyperbilirubinemia 04/16/2020 Assessment & Plan (04/16/2020 5:01 AM MATTRESS RENOVATOR): - T. Bili of 7 (last was [...] 07/25/2019 Assessment & Plan (04/16/2020 2:25 AM MATTRESS RENOVATOR): See hyperbili problem. Concern for ascites Assessment [...] 12/14/2016 Assessment & Plan (04/16/2020 2:26 AM MATTRESS RENOVATOR): - Chronic, concerned that this may be [...] kidney transplant 04/2020. 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 We would need to call [facility] to identify a contracted center ([phone]). She lives close enough to [place] that would be the most likely city she could travel to. She also noted that she could always remarry an ex- as he has insurance that may be covered at [facility]/. Appreciate note from nephrology and agree with restarting oral diuretics. Can continue tacrolimus at the current dose. MRI/MRCP completed and will review with radiology to identify if any role for PTC. 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 Poor follow up with Dr. Vazquez. Poor compliance with tacro - check tacro trough in AM. Resume tacro 1mg bid Assessment & Plan (07/25/2019 6:27 AM CDT): History of liver transplant in 1992 04/ biliary atresia. Was following with liver, last [...] meds Assessment & Plan (04/16/2020 5:01 AM MATTRESS RENOVATOR): Unclear if progression of CKD vs acute [...] Cr of 1.8. She follows with local order to delivery supervisor Dr. Mathew and thinks her baseline is 2.1. She was at 2.3 at OSH. She took some diuretics at home and was given lasix at OSH ED. --UA, urine lytes --get records from her order to delivery supervisor to find out baseline --random tacro level --monitor Is & Os; avoid nephrotoxins Encounters Date Type Department Care Team Description 09/26/2024 Telephone [facility] Advanced Medicine [address] [place] [address] Advanced Medicine [address] [place] [phone] Igor Graham MD Post-Op Call 09/25/2024 8:48 AM CDT - 09/25/2024 11:59 PM CDT Hospital Encounter [facility] Medicine [address] [place] [address] Advanced Medicine [address] [place] [phone] Igor Graham MD Lumbar disc disease with radiculopathy (Primary Dx); Lumbar spondylosis Discharge Disposition: Discharge to home or self care 09/19/2024 Telephone [facility] Advanced Medicine [address] [place] [address] Advanced Medicine [address] [place] [address] Igor Graham MD PMC Preprocedure 09/09/2024 SHOP/CHAP Initial Eligibility Review [facility] OP CASE MANAGEMENT [address] [place] [address] Shireen Griffin RN 08/31/2024 11:48 PM CDT - 09/06/2024 4:45 PM CDT Hospital Encounter [facility] [address] [place] [address] Elisha Avila MD Freilich, MD Vicente Aguirre, Britta Alarcon MD Abdominal pain (Primary Dx); Liver transplant failure and rejection (HCC); Rhinovirus infection Discharge Disposition: Discharge to home or self care 08/27/2024 Telephone [facility] [address] [facility] Advanced Medicine [address] [place] [address] Igor Graham MD Pre Procedure 08/15/2024 10:30 AM CDT Clinical Support [place] [id number] [facility] 1st [place] [address] Brielle Carrillo, PhD 08/15/2024 Results Follow-Up [facility] [address] [place] [address] [address] [phone] [place] [address] Taylor Kitchen RN Surgical pathology 08/14/2024 12:21 PM CDT - 08/14/2024 11:59 PM CDT Hospital Encounter [facility] [address] [facility] [address] [place] [phone] Igor Graham MD Lumbar spondylosis (Primary Dx); Lumbar disc disease with radiculopathy Discharge Disposition: Discharge to home or self care 08/02/2024 Orders Only [facility] [address] [place] [address] Beatriz Lee MD History of liver transplant (HCC); History of kidney transplant 08/01/[address] [facility] [address] [facility] [address] [phone] [place] [address] Misty Vail RN 07/29/[address] [facility] [address] [facility] [address] [phone] [place] [address] Lorena Turner 07/26/2024 2:55 PM CDT - 07/26/2024 2:56 PM CDT Emergency [facility] Emergency Department [address] [place] [address] Discharge Disposition: Left without being seen 07/24/2024 10:00 AM CDT Office Visit [facility] [address] [facility] Advanced Medicine 6th [place] [address] [place] [address] Jessee Morton MD Lumbar spine pain (Primary Dx); Adolescent idiopathic scoliosis of thoracic region; Chronic bilateral low back pain without sciatica 07/24/2024 9:45 AM CDT - 07/24/2024 11:59 PM CDT Hospital Encounter [facility] [address] [place] [address] Jessee Morton MD Lumbar spine pain; Adolescent idiopathic scoliosis of thoracic region Discharge Disposition: Discharge to home or self care 07/24/[address] [facility] [address] [facility] [address] [phone] [place] [address] Lorena Turner 07/22/[address] [facility] [address] [facility] [address] [phone] [place] [address] Dafne Dukes RN 07/19/[address] [facility] [address] [facility] [address] [phone] [place] [address] Karmen Garsia RN After Hours; Abdominal Pain from Last 3 Months Surgical History Surgery Date Site/Laterality Comments [place] COLONOSCOPY FLX DX W/ROMAIN J SPEC WHEN [...] = 0.6 oz pur e alcohol) rare [facility] Utilities Answer Date Recorded In the past 12 months has th e Tuee, gas, oil, or water [employer] threatened to shut off services in your [...] week 09/03/2024 How often do you attend [facility] ch or yazidi services? Never 09/03/2024 Do you belong to any clubs o r organizations such as samaritan groups, unions, fraternal or athletic groups, or [...] any time in the past 12 m [facility], were you homeless or living in a prison (including now)? No 09/03/2024 Personal Safety Answer Date Recorded Have you ever been in or are you currently in a harmful physical or emotional relationship or is someone making you feel afraid or unsafe? Denies 09/02/2024 Comments No Sex and Gender Information Value Date Recorded Sex Assigned at Not on file Legal Sex Female 10:10 PM MATTRESS RENOVATOR Gender Identity Not on file Sexual Orientation [...] 2001 Zoster Vaccine (1 of 2) 2001 HPV Vaccines (1 - Risk 3-dos e SCDM series) 2009 Cervical Cancer Screening 06/21/2023 06/20/2022 Influenza Vaccine (#1) 2024 Depression Screening 08/31/2025 08/31/2024, 05/29/2024, 05/29/2024 DTaP/Tdap/Td Vaccine (5 - Td or Tdap) 10/19/2031 10/18/2021, 05/10/2017, 03/20/2017, Additional history exists Hepatitis C Screening Completed 04/16/2020 Goals Goal Patient Goal Type Associated Problems [...] pain Adolescent idiopathic scoliosis of thoracic region HEPATITIS PANEL, ACUTE Routine 6:35 AM MATTRESS RENOVATOR from Last 3 Months or Most Recently Relevant to Health Maintenance Results * Imaging Lumbar/Sacral Facet Medial Branch Block Bilateral (72824) (09/25/2024 9:47 AM CDT) Narrative RAD_PACS_BJ - 09/25/2024 9:47 AM CDT The images from this study are not interpreted by Radiology. Please refer to the physician's procedure / OR operative note. Igor Graham MD IMG PAIN MGMT PROCEDURE [...] ORDERABLES Aniya l Result [facility] Department [place] [address] * Tacrolimus level trough (09/06/2024 9:48 AM CDT) Tacrolimus trough 6.4 ng/mL Comment: Interpretive Data Testing performed by liquid chromatography-tandem mass spectrometry. Therapeutic concentrations vary depending on type of transplanted organ and time elapsed since transplant. Typical trough concentrations range from 5-15 ng/mL. This test was developed and its performance characteristics determined by the [facility] Laboratory consistent with CLIA requirements. This test has not been cleared or approved by the [place] Food and Drug administration. Current interpretive data last reviewed 2019. Blood 09/06/2024 9:48 AM CDT 09/06/2024 10:15 AM CDT Lily Rico MD LAB BLOOD ORDERABLES Final Result [facility] Department [place] [address] * (ABNORMAL) Comprehensive metabolic panel (09/06/2024 9:48 AM CDT) Sodium 139 135 - 145 mmol/L Potassium, pl 4.1 3.3 - 4.9 mmol/L [facility] Comment:Hemolyzed; Potassium value may be falsely elevated by as much as 0.3-0.5 mmol/L. Suggest redraw and reanalysis. Chloride 102 97 - 110 mmol/L [facility] CO2 26 22 - 32 mmol/L [facility] Anion gap 11 2 - 15 mmol/L [facility] BUN 24 6 - 25 mg/dL [facility] Creatinine 2.04(H) 0.60 - 1.10 mg/dL [facility] Glucose 167 70 - 199 mg/dL [facility] Comment: Interpretive Data Fasting glucose [...] Calcium 8.8 8.5 - 10.3 mg/dL [facility] Bilirubin, total 0.6 0.1 - 1.2 mg/dL [facility] Protein, pl 6.1(L) 6.5 - 8.5 g/dL [facility] Albumin 3.5 3.5 - 5.0 g/dL [facility] Alk phos 241(H) 40 - 130 Units/L [facility] ALT 17 7 - 45 Units/L [facility] AST 41 10 - 45 Units/L [facility] Comment:Hemolyzed; result ma y be falsely elevated Blood 09/06/2024 9:48 AM CDT 09/06/2024 10:15 AM CDT Britta Zhang MD LAB BLOOD ORDERABLES Aniya l Result Performing Organization Address City/[facility]/ZIP Co de Phone Number [facility] Department [place] [address] * (ABNORMAL) eGFR (09/05/2024 10:47 AM CDT) Pathologist [facility] eGFR 24(L) >=60 mL/min/1. 73 m2 Comment: [...] ORDERABLES Aniya l Result Performing Organization Address City/[facility]/ZIP Co de Phone Number [facility] Department [place] [address] * Differential, auto (09/05/2024 10:47 AM CDT) Neutrophil abs 3.84 1.50 - 6.50 K/cumm Imm gran abs 0.03 0.00 - 0.10 K/cumm [facility] Lymphocyte abs 1.33 0.80 - 3.30 K/cumm [facility] Monocyte abs 0.30 0.20 - 0.80 K/cumm [facility] Eosinophil abs 0.15 0.00 - 0.50 K/cumm [facility] Basophil abs 0.01 0.00 - 0.10 K/cumm [facility] Neutrophil pct 67.8 % [facility] Comment: Interpretive Data Percent cell count reference ranges are not reported, since discordance with absolute values may lead to misinterpretation of CBC data. Current Interpretive Data was last revised on 2017. Imm gran pct 0.5 % [facility] Comment: Interpretive Data Percent cell count reference ranges are not reported, since discordance with absolute values may lead to misinterpretation of CBC data. Current Interpretive Data was last revised on 2017. Lymphocyte pct 23.5 % [facility] Comment: Interpretive Data Percent cell count reference ranges are not reported, since discordance with absolute values may lead to misinterpretation of CBC data. Current Interpretive Data was last revised on 2017. Monocyte pct 5.3 % [facility] Comment: Interpretive Data Percent cell count reference ranges are not reported, since discordance with absolute values may lead to misinterpretation of CBC data. Current Interpretive Data was last revised on 2017. Eosinophil pct 2.7 % [facility] Comment: Interpretive Data Percent cell count reference ranges are not reported, since discordance with absolute values may lead to misinterpretation of CBC data. Current Interpretive Data was last revised on 2017. Basophil pct 0.2 % [facility] Comment: Interpretive Data Percent cell count reference ranges are not reported, since discordance with absolute values may lead to misinterpretation of CBC data. Current Interpretive Data was last revised on 2017. Blood 09/05/2024 10:4 7 AM CDT 09/05/2024 11:03 AM CDT Britta Zhang MD LAB BLOOD ORDERABLES Aniya maguire Result Performing Organization Address [facility] Co de Phone Number [facility] Department [place] [address] * Tacrolimus level trough (09/05/2024 10:47 AM CDT) [facility] Tacrolimus trough 6.2 ng/mL Comment: Interpretive Data Testing performed by liquid chromatography-tandem mass spectrometry. Therapeutic concentrations vary depending on type of transplanted organ and time elapsed since transplant. Typical trough concentrations range from 5-15 ng/mL. This test was developed and its performance characteristics determined by the [facility] Laboratory consistent with CLIA requirements. This test has not been cleared or approved by the [place] Food and Drug administration. Current interpretive data last reviewed 2019. Blood 09/05/2024 10:4 7 AM CDT 09/05/2024 11:04 AM CDT Narrative [facility] - 09/05/2024 1:14 PM CDT Draw exactly 12 HOURS after last dose of tacrolimus was given and just BEFORE giving next dose Britta Zhang MD LAB BLOOD ORDERABLES Aniya l Result Performing Organization Address [facility] de Phone Number [facility] Department [place] [address] * (ABNORMAL) CBC with auto differential (09/05/2024 10:47 AM CDT) [facility] WBC 5.66 3.80 - 9.90 K/cumm Hgb 11.1(L) 11.9 - 15.5 g/dL [facility] Hct 31.6(L) 35.6 - 45.5 % [facility] Plt 115(L) 150 - 400 K/cumm [facility] MPV 11.4 9.1 - 12.3 fL [facility] RBC 2.81(L) 3.90 - 5.20 M/cumm [facility] MCV 112.5(H) 81.3 - 96.4 fL [facility] MCH 39.5(H) 27.1 - 33.3 pg [facility] MCHC 35.1 32.3 - 35.7 g/dL [facility] RDW CV 14.2 11.1 - 14.9 % [facility] RDW SD 59.0(H) 35.7 - 48.1 fL [facility] NRBC abs 0.00 0.00 - 0.01 K/cumm [facility] Blood 09/05/2024 10:4 7 AM CDT 09/05/2024 11:03 AM CDT Britta Zhang MD LAB BLOOD ORDERABLES Aniya maguire Result [facility] Department [place] [address] * (ABNORMAL) Comprehensive metabolic panel (09/05/2024 10:47 AM CDT) Sodium 143 135 - 145 mmol/L Potassium, pl 4.2 3.3 - 4.9 mmol/L [facility] Chloride 102 97 - 110 mmol/L [facility] CO2 28 22 - 32 mmol/L [facility] Anion gap 13 2 - 15 mmol/L [facility] BUN 28(H) 6 - 25 mg/dL [facility] Creatinine 2.49(H) 0.60 - 1.10 mg/dL [facility] Glucose 127 70 - 199 mg/dL [facility] Comment: Interpretive Data Fasting glucose [...] 2022. Calcium 9.0 8.5 - 10.3 mg/dL [facility] Bilirubin, total 0.7 0.1 - 1.2 mg/dL [facility] Protein, pl 6.4(L) 6.5 - 8.5 g/dL [facility] Albumin 3.7 3.5 - 5.0 g/dL [facility] Alk phos 257(H) 40 - 130 Units/L [facility] ALT 18 7 - 45 Units/L [facility] AST 27 10 - 45 Units/L [facility] Blood 09/05/2024 10:4 7 AM CDT 09/05/2024 11:03 AM CDT us Britta Zhang MD LAB BLOOD ORDERABLES Aniya maguire Result [facility] Department [place] [address] * (ABNORMAL) eGFR (09/04/2024 5:03 AM CDT) [...] LAB BLOOD ORDERABLES Aniya maguire Result [facility] One [facility] Department [place] [address] * Differential, auto (09/04/2024 5:03 AM CDT) Neutrophil abs 2.68 1.50 - 6.50 K/cumm Imm gran abs 0.01 0.00 - 0.10 K/cumm [facility] Lymphocyte abs 1.03 0.80 - 3.30 K/cumm [facility] Monocyte abs 0.23 0.20 - 0.80 K/cumm [facility] Eosinophil abs 0.09 0.00 - 0.50 K/cumm [facility] Basophil abs 0.00 0.00 - 0.10 K/cumm [facility] Neutrophil pct 66.4 % [facility] Comment: Interpretive Data Percent cell count reference ranges are not reported, since discordance with absolute values may lead to misinterpretation of CBC data. Current Interpretive Data was last revised on 2017. Imm gran pct 0.2 % [facility] Comment: Interpretive Data Percent cell count reference ranges are not reported, since discordance with absolute values may lead to misinterpretation of CBC data. Current Interpretive Data was last revised on 2017. Lymphocyte pct 25.5 % [facility] Comment: Interpretive Data Percent cell count reference ranges are not reported, since discordance with absolute values may lead to misinterpretation of CBC data. Current Interpretive Data was last revised on 2017. Monocyte pct 5.7 % [facility] Comment: Interpretive Data Percent cell count reference ranges are not reported, since discordance with absolute values may lead to misinterpretation of CBC data. Current Interpretive Data was last revised on 2017. Eosinophil pct 2.2 % [facility] Comment: Interpretive Data Percent cell count reference ranges are not reported, since discordance with absolute values may lead to misinterpretation of CBC data. Current Interpretive Data was last revised on 2017. Basophil pct 0.0 % [facility] Comment: Interpretive Data Percent cell count reference ranges are not reported, since discordance with absolute values may lead to misinterpretation of CBC data. Current Interpretive Data was last revised on 2017. Blood 09/04/2024 5:03 AM CDT 09/04/2024 5:10 AM CDT Result [facility] Britta Zhang MD LAB BLOOD ORDERABLES Aniya l Result Performing Organization Address City/[facility] Co de Phone Number [facility] Department [place] [address] * Tacrolimus level trough (09/04/2024 5:03 AM CDT) Pathologist [facility] Tacrolimus trough 10.9 ng/mL Comment: Interpretive Data Testing performed by liquid chromatography-tandem mass spectrometry. Therapeutic concentrations vary depending on type of transplanted organ and time elapsed since transplant. Typical trough concentrations range from 5-15 ng/mL. This test was developed and its performance characteristics determined by the [facility] consistent with CLIA requirements. This test has not been cleared or approved by the [place] Food and Drug administration. Current interpretive data last reviewed 2019. Blood 09/04/2024 5:03 AM CDT 09/04/2024 5:10 AM CDT Narrative [facility] - 09/04/2024 7:32 AM CDT Draw exactly 12 HOURS after last dose of tacrolimus was given and just BEFORE giving next dose Britta Zhang MD LAB BLOOD ORDERABLES Aniya l Result Performing Organization Address City/[facility] Co de Phone Number [facility] Department [place] [address] * (ABNORMAL) CBC with auto differential (09/04/2024 5:03 AM CDT) [facility] WBC 4.04 3.80 - 9.90 K/cumm Hgb 11.8(L) 11.9 - 15.5 g/dL [facility] Hct 32.9(L) 35.6 - 45.5 % [facility] Plt 66(L) 150 - 400 K/cumm [facility] MPV 12.0 9.1 - 12.3 fL [facility] RBC 2.96(L) 3.90 - 5.20 M/cumm [facility] MCV 111.1(H) 81.3 - 96.4 fL [facility] MCH 39.9(H) 27.1 - 33.3 pg [facility] MCHC 35.9(H) 32.3 - 35.7 g/dL [facility] RDW CV 14.0 11.1 - 14.9 % [facility] RDW SD 56.5(H) 35.7 - 48.1 fL [facility] NRBC abs 0.00 0.00 - 0.01 K/cumm [facility] Blood 09/04/2024 5:03 AM CDT 09/04/2024 5:10 AM CDT Britta Zhang MD LAB BLOOD ORDERABLES Aniya maguire Result [facility] Department [place] [address] * (ABNORMAL) Comprehensive metabolic panel (09/04/2024 5:03 AM CDT) Sodium 137 135 - 145 mmol/L Potassium, pl 4.2 3.3 - 4.9 mmol/L [facility] Chloride 100 97 - 110 mmol/L [facility] CO2 26 22 - 32 mmol/L [facility] Anion gap 11 2 - 15 mmol/L [facility] BUN 30(H) 6 - 25 mg/dL [facility] Creatinine 2.87(H) 0.60 - 1.10 mg/dL [facility] Glucose 153 70 - 199 mg/dL [facility] Comment: Interpretive Data Fasting glucose [...] Calcium 8.5 8.5 - 10.3 mg/dL [facility] Bilirubin, total 0.8 0.1 - 1.2 mg/dL [facility] Protein, pl 6.6 6.5 - 8.5 g/dL [facility] Albumin 3.5 3.5 - 5.0 g/dL [facility] Alk phos 240(H) 40 - 130 Units/L [facility] ALT 12 7 - 45 Units/L [facility] AST 31 10 - 45 Units/L [facility] Blood 09/04/2024 5:03 AM CDT 09/04/2024 5:10 AM CDT Britta Zhang MD LAB BLOOD ORDERABLES Aniya l Result [facility] Department [place] [address] * (ABNORMAL) eGFR (09/03/2024 5:21 AM CDT) [...] LAB BLOOD ORDERABLES Aniya andrez Result [facility] Department [place] [address] * Differential, auto (09/03/2024 5:21 AM CDT) Pathologist [facility] Neutrophil abs 3.79 1.50 - 6.50 K/cumm Imm gran abs 0.03 0.00 - 0.10 K/cumm [facility] Lymphocyte abs 0.84 0.80 - 3.30 K/cumm [facility] Monocyte abs 0.25 0.20 - 0.80 K/cumm [facility] Eosinophil abs 0.05 0.00 - 0.50 K/cumm [facility] Basophil abs 0.00 0.00 - 0.10 K/cumm [facility] Neutrophil pct 76.5 % [facility] Comment: Interpretive Data Percent cell count reference ranges are not reported, since discordance with absolute values may lead to misinterpretation of CBC data. Current Interpretive Data was last revised on 2017. Imm gran pct 0.6 % [facility] Comment: Interpretive Data Percent cell count reference ranges are not reported, since discordance with absolute values may lead to misinterpretation of CBC data. Current Interpretive Data was last revised on 2017. Lymphocyte pct 16.9 % [facility] Comment: Interpretive Data Percent cell count reference ranges are not reported, since discordance with absolute values may lead to misinterpretation of CBC data. Current Interpretive Data was last revised on 2017. Monocyte pct 5.0 % [facility] Comment: Interpretive Data Percent cell count reference ranges are not reported, since discordance with absolute values may lead to misinterpretation of CBC data. Current Interpretive Data was last revised on 2017. Eosinophil pct 1.0 % [facility] Comment: Interpretive Data Percent cell count reference ranges are not reported, since discordance with absolute values may lead to misinterpretation of CBC data. Current Interpretive Data was last revised on 2017. Basophil pct 0.0 % [facility] Comment: Interpretive Data Percent cell count reference ranges are not reported, since discordance with absolute values may lead to misinterpretation of CBC data. Current Interpretive Data was last revised on 2017. Blood 09/03/2024 5:21 AM CDT 09/03/2024 5:31 AM CDT Britta Zhang MD LAB BLOOD ORDERABLES Aniya l Result Performing Organization Address [facility] Co de Phone Number [facility] [place] [place] [address] * Tacrolimus level trough (09/03/2024 5:21 AM CDT) [facility] Signature Tacrolimus trough 17.8 ng/mL Comment: Interpretive Data Testing performed by liquid chromatography-tandem mass spectrometry. Therapeutic concentrations vary depending on type of transplanted organ and time elapsed since transplant. Typical trough concentrations range from 5-15 ng/mL. This test was developed and its performance characteristics determined by the [facility] consistent with CLIA requirements. This test has not been cleared or approved by the US Food and Drug administration. Current interpretive data last reviewed 2019. Blood 09/03/2024 5:21 AM CDT 09/03/2024 5:31 AM CDT Narrative [facility] - 09/03/2024 9:19 AM CDT Draw exactly 12 HOURS after last dose of tacrolimus was given and just BEFORE giving next dose Britta Zhang MD LAB BLOOD ORDERABLES Aniya l Result Performing Organization Address [facility] Co de Phone Number [facility] [place] [address] * (ABNORMAL) CBC with auto differential (09/03/2024 5:21 AM CDT) [facility] WBC 4.96 3.80 - 9.90 K/cumm Hgb 11.3(L) 11.9 - 15.5 g/dL [facility] Hct 30.7(L) 35.6 - 45.5 % [facility] Plt 83(L) 150 - 400 K/cumm [facility] MPV 11.0 9.1 - 12.3 fL [facility] RBC 2.84(L) 3.90 - 5.20 M/cumm [facility] MCV 108.1(H) 81.3 - 96.4 fL [facility] MCH 39.8(H) 27.1 - 33.3 pg [facility] MCHC 36.8(H) 32.3 - 35.7 g/dL [facility] RDW CV 13.9 11.1 - 14.9 % [facility] RDW SD 54.4(H) 35.7 - 48.1 fL [facility] NRBC abs 0.00 0.00 - 0.01 K/cumm [facility] Blood 09/03/2024 5:21 AM CDT 09/03/2024 5:31 AM CDT Britta Zhang MD LAB BLOOD ORDERABLES Aniya maguire Result [facility] Department [place] [address] * (ABNORMAL) Comprehensive metabolic panel (09/03/2024 5:21 AM CDT) [facility] Sodium 138 135 - 145 mmol/L Potassium, pl 4.7 3.3 - 4.9 mmol/L [facility] Chloride 101 97 - 110 mmol/L [facility] CO2 29 22 - 32 mmol/L [facility] Anion gap 8 2 - 15 mmol/L [facility] BUN 29(H) 6 - 25 mg/dL [facility] Creatinine 2.92(H) 0.60 - 1.10 mg/dL [facility] Glucose 113 70 - 199 mg/dL [facility] Comment: Interpretive Data Fasting glucose [...] Calcium 9.2 8.5 - 10.3 mg/dL [facility] Bilirubin, total 1.1 0.1 - 1.2 mg/dL [facility] Protein, pl 6.2(L) 6.5 - 8.5 g/dL [facility] Albumin 3.4(L) 3.5 - 5.0 g/dL [facility] Alk phos 233(H) 40 - 130 Units/L [facility] ALT 13 7 - 45 Units/L [facility] AST 22 10 - 45 Units/L [facility] Blood 09/03/2024 5:21 AM CDT 09/03/2024 5:31 AM CDT Britta Zhang MD LAB BLOOD ORDERABLES Aniya maguire Result [facility] Department [place] [address] * BK virus PCR quantitative Blood (09/02/2024 12:21 PM CDT) [facility] BKV DNA result, pl Not Detected [facility] Comment: The quantifiable range of this assay is 21.5 IU/mL to 100,000,000 IU/mL (1.33 log IU/mL to 8.00 log IU/mL). Testing was performed by the JOHNNY 6800 BKV Quantatitive Test version 2.0 ([employer] Testing performed at [facility] Current Interpretive Data was last revised on 2021. Blood 09/02/2024 12:2 1 PM CDT 09/02/2024 12:52 PM CDT Britta Zhang MD LAB MICROBIOLOGY - GENERA L ORDERABLES Final Result Performing Organization Address City/[facility]/ZIP Co de Phone Number [facility] One [facility] Department [place] [address] [facility] * HLA Donor Specific Antibody Report [...] ORDERABLES Aniya l Result Performing Organization Address City/[facility]/ZIP Co de Phone Number [email or web address] * Collection Task for HLA Antibody Screen (09/02/2024 12:21 PM CDT) HLA Antibody Screen By Single Antigen Received Blood 09/02/2024 12:2 1 PM CDT 09/03/2024 10:59 AM CDT Britta Zhang MD LAB BLOOD ORDERABLES Aniya l Result [facility] One [facility] [place] [place] [address] * Cytomegalovirus (CMV) DNA PCR, quantitative Blood (09/02/2024 12:21 PM CDT) CMV DNA Not Detected [facility] Comment: Interpretive Data: The quantifiable range of this assay is 34 IUnits/mL to 10,000,000 IUnits/mL (1.53 log IUnits/mL to 7.0 log IUnits/mL). Testing was performed by the JOHNNY 6800 CMV Test ([employer] Testing performed at [facility]. Current interpretive data was last revised on 2020. Blood 09/02/2024 12:2 1 PM CDT 09/02/2024 12:52 PM CDT us Britta Zhang MD LAB MICROBIOLOGY - GENERA L ORDERABLES Final Result Performing Organization Address [facility]/ZIP Co de Phone Number [facility] One [facility] Department [place] [address] [facility] * (ABNORMAL) eGFR (09/02/2024 12:21 PM [...] LAB BLOOD ORDERABLES Aniya l Result [facility]ley [facility] Department [place] [address] * Blood culture Blood (09/02/2024 12:21 PM CDT) Report Final Report: No growth Blood 09/02/2024 12:2 1 PM CDT 09/02/2024 1:40 PM CDT Diogenes [facility] - 09/06/2024 4:00 PM CDT From a [...] characteristics have been verified by the [facility]biology [facility]. For questions about this culture, contact the Microbiology Laboratory at [phone]. Interpretive data was last revised on 24. us Britta Zhang MD LAB MICROBIOLOGY - GENERA L ORDERABLES Final Result [facility] Donell [facility] Department [place] [address] * Blood culture Blood (09/02/2024 12:21 PM CDT) Report Final Report: No growth Blood 09/02/2024 12:2 1 PM CDT 09/02/2024 1:40 PM CDT Narrative [facility] - 09/06/2024 4:00 PM CDT Collection->Peripheral [...] characteristics have been verified by the [facility]biology [facility]. For questions about this culture, contact the Microbiology Laboratory at [phone]. Interpretive data was last revised on 24. Britta Zhang MD LAB MICROBIOLOGY - GENERA L ORDERABLES Final Result [facility] One [facility] Department [place] [address] * (ABNORMAL) Renal function panel (09/02/2024 12:21 PM CDT) Sodium 137 135 - 145 mmol/L Potassium, pl 3.9 3.3 - 4.9 mmol/L [facility] Chloride 97 97 - 110 mmol/L [facility] CO2 31 22 - 32 mmol/L [facility] Anion gap 9 2 - 15 mmol/L [facility] BUN 28(H) 6 - 25 mg/dL [facility] Creatinine 2.89(H) 0.60 - 1.10 mg/dL [facility] Glucose 162 70 - 199 mg/dL [facility] Comment: Interpretive Data Fasting glucose [...] Calcium 9.7 8.5 - 10.3 mg/dL [facility] Phosphorus, pl 4.1 2.3 - 4.5 mg/dL [facility] Albumin 3.5 3.5 - 5.0 g/dL [facility] Blood 09/02/2024 12:2 1 PM CDT 09/02/2024 12:42 PM CDT Britta Zhang MD LAB BLOOD ORDERABLES Aniya l Result [facility] One [facility] Department [place] [address] * (ABNORMAL) eGFR (09/02/2024 5:16 AM CDT) Pathologist [facility] eGFR 19(L) >=60 mL/min/1. 73 m2 Comment: [...] MD LAB BLOOD ORDERABLES Final Result [facility] One [facility] Department [place] [address] * Differential, auto (09/02/2024 5:16 AM CDT) Neutrophil abs 3.97 1.50 - 6.50 K/cumm Imm gran abs 0.02 0.00 - 0.10 K/cumm [facility] Lymphocyte abs 1.10 0.80 - 3.30 K/cumm [facility] Monocyte abs 0.24 0.20 - 0.80 K/cumm [facility] Eosinophil abs 0.11 0.00 - 0.50 K/cumm [facility] Basophil abs 0.01 0.00 - 0.10 K/cumm [facility] Neutrophil pct 72.8 % [facility] Comment: Interpretive Data Percent cell count reference ranges are not reported, since discordance with absolute values may lead to misinterpretation of CBC data. Current Interpretive Data was last revised on 2017. Imm gran pct 0.4 % [facility] Comment: Interpretive Data Percent cell count reference ranges are not reported, since discordance with absolute values may lead to misinterpretation of CBC data. Current Interpretive Data was last revised on 2017. Lymphocyte pct 20.2 % [facility] Comment: Interpretive Data Percent cell count reference ranges are not reported, since discordance with absolute values may lead to misinterpretation of CBC data. Current Interpretive Data was last revised on 2017. Monocyte pct 4.4 % [facility] Comment: Interpretive Data Percent cell count reference ranges are not reported, since discordance with absolute values may lead to misinterpretation of CBC data. Current Interpretive Data was last revised on 2017. Eosinophil pct 2.0 % [facility] Comment: Interpretive Data Percent cell count reference ranges are not reported, since discordance with absolute values may lead to misinterpretation of CBC data. Current Interpretive Data was last revised on 2017. Basophil pct 0.2 % [facility] Comment: Interpretive Data Percent cell count reference ranges are not reported, since discordance with absolute values may lead to misinterpretation of CBC data. Current Interpretive Data was last revised on 2017. Blood 09/02/2024 5:16 AM CDT 09/02/2024 5:32 AM CDT Bailee Valiente MD LAB BLOOD ORDERABLES Final Result Performing Organization Address [facility] Co de Phone Number [facility] [place] [address] * Tacrolimus level trough (09/02/2024 5:16 AM CDT) Pathologist [facility] Tacrolimus trough 17.0 ng/mL Comment: Interpretive Data Testing performed by liquid chromatography-tandem mass spectrometry. Therapeutic concentrations vary depending on type of transplanted organ and time elapsed since transplant. Typical trough concentrations range from 5-15 ng/mL. This test was developed and its performance characteristics determined by the [facility] consistent with CLIA requirements. This test has not been cleared or approved by the [place] Food and Drug administration. Current interpretive data last reviewed 2019. Blood 09/02/2024 5:16 AM CDT 09/02/2024 5:32 AM CDT us Britta Zhang MD LAB BLOOD ORDERABLES Aniya l Result Performing Organization Address City/[facility] Co de Phone Number [facility] Department [place] [address] * (ABNORMAL) CBC with auto differential (09/02/2024 5:16 AM CDT) Pathologist [facility] WBC 5.45 3.80 - 9.90 K/cumm Hgb 11.7(L) 11.9 - 15.5 g/dL [facility] Hct 32.3(L) 35.6 - 45.5 % [facility] Plt 98(L) 150 - 400 K/cumm [facility] MPV 11.4 9.1 - 12.3 fL [facility] RBC 2.95(L) 3.90 - 5.20 M/cumm [facility] MCV 109.5(H) 81.3 - 96.4 fL [facility] MCH 39.7(H) 27.1 - 33.3 pg [facility] MCHC 36.2(H) 32.3 - 35.7 g/dL [facility] RDW CV 13.9 11.1 - 14.9 % [facility] RDW SD 56.6(H) 35.7 - 48.1 fL [facility] NRBC abs 0.00 0.00 - 0.01 K/cumm [facility] Blood 09/02/2024 5:16 AM CDT 09/02/2024 5:32 AM CDT us Bailee Valiente MD LAB BLOOD ORDERABLES Final Result [facility] One [facility] Department [place] [address] * (ABNORMAL) Comprehensive metabolic panel (09/02/2024 5:16 AM CDT) Sodium 137 135 - 145 mmol/L Potassium, pl 4.1 3.3 - 4.9 mmol/L [facility] Chloride 98 97 - 110 mmol/L [facility] CO2 32 22 - 32 mmol/L [facility] Anion gap 7 2 - 15 mmol/L [facility] BUN 29(H) 6 - 25 mg/dL [facility] Creatinine 3.05(H) 0.60 - 1.10 mg/dL [facility] Glucose 185 70 - 199 mg/dL [facility] Comment: Interpretive Data Fasting glucose [...] Calcium 9.0 8.5 - 10.3 mg/dL [facility] Bilirubin, total 1.0 0.1 - 1.2 mg/dL [facility] Protein, pl 6.3(L) 6.5 - 8.5 g/dL [facility] Albumin 3.8 3.5 - 5.0 g/dL [facility] Alk phos 223(H) 40 - 130 Units/L [facility] ALT 11 7 - 45 Units/L [facility] AST 24 10 - 45 Units/L [facility] Blood 09/02/2024 5:16 AM CDT 09/02/2024 5:32 AM CDT us Bailee Valiente MD LAB BLOOD ORDERABLES Final Result [facility] One [facility] Department [place] [address] * Troponin I high-sensitivity 2-hour (09/01/2024 2:58 AM CDT) Trop I hs 5 <=17 ng/L Comment: Interpretive Data For further hscTnI resources including the diagnostic algorithm and an aid in interpretation, copy and paste this link: [email or web address] Current Interpretive Data last revised 2019. Trop I hs delta 0 ng/L [facility] Trop I hs interp Insignificant [facility] Blood 09/01/2024 2:58 AM CDT 09/01/2024 3:13 AM CDT us Diana Cassidy MD LAB BLOOD ORDERABLES Fi nal Result Performing Organization Address City/[facility]/ZIP Co de Phone Number [facility] Department [place] [address] * ECG 12-LEAD (09/01/2024 2:53 AM CDT) Narrative [facility] - 09/01/2024 2:53 AM CDT Elisha Avila MD 09/01/2024 3:24 AM ECG 12 lead Date/Time: 09/01/2024 2:53 AM Performed by: Elisha Avila MD Authorized by: Diana Cassidy MD Diana Cassidy MD ECG ORDERABLES Final R esult Performing Organization Address [facility] Co de Phone Number [facility] * XR Chest PA Lateral 2 [...] and read back by: Flower Moser MD ([phone]) on 09/02/2024 03:01:57 by: Radu Helm MT Direct Specimen Exam Stain: Gram Positive Cocci in clusters Time to culture positivity (anaerobic media): 21.4 hours Notification of: Gram Positive Cocci in clusters called to and read back by: Flower Moser MD ([phone]) on 09/02/2024 01:01:22 by: Radu Helm MT [facility] Report Final Report: Staphylococcus epidermidis Single blood culture positive for this microorganism. Isolate is a possible contaminant. If a similar isolate is recovered from a second blood culture collected within 3 days of this culture, both will be evaluated and, if determined to be the same species, antimicrobial susceptibility testing will be performed. (.) [facility] Organism STAPHYLOCOCCUS EPIDERMIDIS [facility] Blood 09/01/2024 2:18 AM CDT 09/01/2024 2:43 AM CDT Narrative [facility] - 09/06/2024 12:48 PM CDT [...] characteristics have been verified by the [facility] Microbiology Laboratory. For questions about this culture, contact the Microbiology Laboratory at [phone]. Interpretive data was last revised on 24. us Diana Cassidy MD LAB MICROBIOLOGY - GENE RAL ORDERABLES Final Result [facility] Department [place] [address] * US Renal Transplant W Dopplers (09/01/2024 [...] Mena M.D., Ph.D Diana Cassidy MD [facility] US PROCEDURES Final Result * (ABNORMAL) Respiratory pathogen panel Nasopharyngeal (09/01/2024 12:58 AM CDT) Influenza A RNA Not Detected Not Detected Influenza B RNA Not Detected Not Detected [facility] RSV RNA Not Detected Not Detected [facility] COVID-19 RNA Not Detected Not Detected [facility] Coronavirus 229E RNA Not Detected Not Detected [facility] Coronavirus HKU1 RNA Not Detected Not Detected [facility] Coronavirus NL63 RNA Not Detected Not Detected [facility] Coronavirus OC43 RNA Not Detected Not Detected [facility] Adenovirus DNA Not Detected Not Detected [facility] Metapneumovirus RNA Not Detected Not Detected [facility] Rhinovirus/Enterov irus RNA Detected(A) Not Detected [facility] Parainfluenza 1 RNA Not Detected Not Detected [facility] Parainfluenza 2 RNA Not Detected Not Detected [facility] Parainfluenza 3 RNA Not Detected Not Detected [facility] Parainfluenza 4 RNA Not Detected Not Detected [facility] B. pertussis DNA Not Detected Not Detected [facility] B. parapertussis DNA Not Detected Not Detected [facility] C. pneumoniae DNA Not Detected Not Detected [facility] M. pneumoniae DNA Not Detected Not Detected [facility] Nasopharyngeal 09/01/2024 12 :58 AM CDT 09/01/2024 2:52 AM CDT Narrative [facility] - 09/01/2024 3:48 AM CDT Is the Patient experiencing symptoms consistent with COVID?->Yes Surveillance testing for transplant patient?->No Interpretive Data The [employer] FilmArray Respiratory Panel (RP2.1) assay is a [...] assay has FDA clearance for testing of SALES AND SERVICE REPRESENTATIVE swabs. The performance of additional specimen types has been assessed by the performing laboratory. The performance characteristics of this assay have been determined by [facility] Molecular Infectious Disease Laboratory. Current interpretive data was last revised on 21. Diana Cassidy MD LAB MICROBIOLOGY - GENE RAL ORDERABLES Final Result [facility] Department [place] [address] * Troponin I high-sensitivity series (baseline, 2hr, [...] ORDERABLES Fi nal Result Performing Organization Address City/[facility]/ZIP Co de Phone Number [facility] Department [place] [address] * Sepsis Lactate w/ Reflex (09/01/2024 12:57 AM CDT) Sepsis Lactate 1.8 0.7 - 2.0 mmol/L Blood 09/01/2024 12:5 7 AM CDT 09/01/2024 1:14 AM CDT Diana Cassidy MD LAB BLOOD ORDERABLES [place] [address] * (ABNORMAL) eGFR (09/01/2024 12:57 AM CDT) [...] LAB BLOOD ORDERABLES Fi nal Result [facility] Department [place] [address] * Differential, auto (09/01/2024 12:57 AM CDT) Neutrophil abs 4.42 1.50 - 6.50 K/cumm Imm gran abs 0.03 0.00 - 0.10 K/cumm [facility] Lymphocyte abs 1.17 0.80 - 3.30 K/cumm [facility] Monocyte abs 0.38 0.20 - 0.80 K/cumm [facility] Eosinophil abs 0.10 0.00 - 0.50 K/cumm [facility] Basophil abs 0.02 0.00 - 0.10 K/cumm [facility] Neutrophil pct 72.3 % [facility] Comment: Interpretive Data Percent cell count reference ranges are not reported, since discordance with absolute values may lead to misinterpretation of CBC data. Current Interpretive Data was last revised on 2017. Imm gran pct 0.5 % [facility] Comment: Interpretive Data Percent cell count reference ranges are not reported, since discordance with absolute values may lead to misinterpretation of CBC data. Current Interpretive Data was last revised on 2017. Lymphocyte pct 19.1 % [facility] Comment: Interpretive Data Percent cell count reference ranges are not reported, since discordance with absolute values may lead to misinterpretation of CBC data. Current Interpretive Data was last revised on 2017. Monocyte pct 6.2 % [facility] Comment: Interpretive Data Percent cell count reference ranges are not reported, since discordance with absolute values may lead to misinterpretation of CBC data. Current Interpretive Data was last revised on 2017. Eosinophil pct 1.6 % [facility] Comment: Interpretive Data Percent cell count reference ranges are not reported, since discordance with absolute values may lead to misinterpretation of CBC data. Current Interpretive Data was last revised on 2017. Basophil pct 0.3 % [facility] Comment: Interpretive Data Percent cell count reference ranges are not reported, since discordance with absolute values may lead to misinterpretation of CBC data. Current Interpretive Data was last revised on 2017. Blood 09/01/2024 12:5 7 AM CDT 09/01/2024 1:20 AM CDT Diana Cassidy MD LAB BLOOD ORDERABLES Fi nal Result Performing Organization Address City/[facility]/ZIP Co de Phone Number [facility] Department [place] [address] * (ABNORMAL) Urinalysis reflex to microscopic and culture Urine, bladder (09/01/2024 12:57 AM CDT) Color, ur Yellow Yellow Clarity, ur Clear Clear [facility] Specific gravity, ur 1.020 1.003 - 1.030 [facility] pH, urine 5.5 [facility] Comment: Interpretive Data U rine pH is affected by diet, medications, systemic acid-base disturbances, and renal tubular function. pH may affect urinary stone formation. For example, urine pH below 6.0 may help reduce the tendency for calcium phosphate stones and pH greater than 6.0 may reduce the tendency for uric acid stone formation. Source: [facility] Current Interpretive Data was last revised on 2017 Protein, ur ql Trace Negative [facility] Glucose, ur ql Negative Negative [facility] Ketones, ur Trace Negative [facility] Bilirubin, ur Negative Negative [facility] Blood, ur Negative Negative [facility] Urobilinogen, ur 2.0(A) <2.0 mg/dL [facility] Nitrite, ur Negative Negative [facility] Leukocyte esterase, ur Negative Negative [facility] UA reflex comment Reflex conditions for microscopic UA and culture not met. [facility] Urine, bladder 09/01/2024 12 :57 AM CDT 09/01/2024 1:14 AM CDT Diana Cassidy MD LAB MICROBIOLOGY - GENE RAL ORDERABLES Final Result Performing Organization Address City/[facility]/ZIP Co de Phone Number [facility] Department [place] [address] * (ABNORMAL) CBC with auto differential (09/01/2024 12:57 AM CDT) WBC 6.12 3.80 - 9.90 K/cumm Hgb 12.7 11.9 - 15.5 g/dL [facility] Hct 35.2(L) 35.6 - 45.5 % [facility] Plt 115(L) 150 - 400 K/cumm [facility] MPV 11.0 9.1 - 12.3 fL [facility] RBC 3.20(L) 3.90 - 5.20 M/cumm [facility] MCV 110.0(H) 81.3 - 96.4 fL [facility] MCH 39.7(H) 27.1 - 33.3 pg [facility] MCHC 36.1(H) 32.3 - 35.7 g/dL [facility] RDW CV 14.2 11.1 - 14.9 % [facility] RDW SD 57.3(H) 35.7 - 48.1 fL [facility] NRBC abs 0.00 0.00 - 0.01 K/cumm [facility] Blood 09/01/2024 12:5 7 AM CDT 09/01/2024 1:20 AM CDT Diana Cassidy MD LAB BLOOD ORDERABLES nal Result [facility] Department [place] [address] * Tacrolimus level random (09/01/2024 12:57 AM CDT) Pathologist [facility] Tacrolimus random 23.8 ng/mL Comment: Interpretive Data Testing performed by liquid chromatography-tandem mass spectrometry. Therapeutic concentrations vary depending on type of transplanted organ and time elapsed since transplant. Typical trough concentrations range from 5-15 ng/mL. This test was developed and its performance characteristics determined by the [facility] Laboratory consistent with CLIA requirements. This test has not been cleared or approved by the US Food and Drug administration. Current interpretive data last reviewed 2019. Blood 09/01/2024 12:5 7 AM CDT 09/01/2024 1:20 AM CDT Diana Cassidy MD LAB BLOOD ORDERABLES Fi nal Result [facility] Department [place] [address] * Blood culture Blood (09/01/2024 12:57 AM CDT) Report Final Report: No growth Blood 09/01/2024 12:5 7 AM CDT 09/01/2024 1:35 AM CDT Narrative [facility] - 09/05/2024 7:00 AM CDT Collection->Peripheral 1. [...] characteristics have been verified by the [facility] Microbiology Laboratory. For questions about this culture, contact the Microbiology Laboratory at [phone]. Interpretive data was last revised on 24. us Diana Cassidy MD LAB MICROBIOLOGY - GENE RAL ORDERABLES Final Result Performing Organization Address City/[facility]/ZIP Co de Phone Number [facility] Department [place] [address] * Phosphorus (09/01/2024 12:57 AM CDT) [facility] Phosphorus, pl 2.9 2.3 - 4.5 mg/dL Blood 09/01/2024 12:5 7 AM CDT 09/01/2024 1:20 AM CDT Diana Cassidy MD LAB BLOOD ORDERABLES Fi nal Result Performing Organization Address City/[facility] Co de Phone Number [facility] [place] [address] * Magnesium (09/01/2024 12:57 AM CDT) [facility] Magnesium 1.5 1.4 - 2.5 mg/dL Blood 09/01/2024 12:5 7 AM CDT 09/01/2024 1:20 AM CDT Diana Cassidy MD LAB BLOOD ORDERABLES Fi nal Result Performing Organization Address [facility] de Phone Number [facility] [place] [address] * Lipase (09/01/2024 12:57 AM CDT) [facility] Lipase 19 10 - 99 Units/L Blood 09/01/2024 12:5 7 AM CDT 09/01/2024 1:20 AM CDT Diana Cassidy MD LAB BLOOD ORDERABLES Fi nal Result Performing Organization Address [facility] de Phone Number [facility] [place] [address] * (ABNORMAL) Comprehensive metabolic panel (09/01/2024 12:57 AM CDT) [facility] Sodium 138 135 - 145 mmol/L Potassium, pl 4.5 3.3 - 4.9 mmol/L [facility] Comment:Hemolyzed; Potassium value may be falsely elevated by as much as 0.3-0.5 mmol/L. Suggest redraw and reanalysis. Chloride 105 97 - 110 mmol/L [facility] CO2 24 22 - 32 mmol/L [facility] Anion gap 9 2 - 15 mmol/L [facility] BUN 21 6 - 25 mg/dL [facility] Creatinine 2.34(H) 0.60 - 1.10 mg/dL [facility] Glucose 89 70 - 199 mg/dL [facility] Comment: Interpretive Data Fasting glucose [...] Calcium 8.7 8.5 - 10.3 mg/dL [facility] Bilirubin, total 1.1 0.1 - 1.2 mg/dL [facility] Protein, pl 7.1 6.5 - 8.5 g/dL [facility] Albumin 3.9 3.5 - 5.0 g/dL [facility] Alk phos 257(H) 40 - 130 Units/L [facility] ALT 14 7 - 45 Units/L [facility] AST 37 10 - 45 Units/L [facility] Comment:Hemolyzed; result ma y be falsely elevated Blood 09/01/2024 12:5 7 AM CDT 09/01/2024 1:20 AM CDT Diana Cassidy MD LAB BLOOD ORDERABLES Fi nal Result [facility] Department [place] [address] * Surgical pathology (08/02/2024 9:18 AM CDT) Tissue (Miscellaneous) 08/02/2024 9:18 AM CDT 08/02/2024 9:18 AM CDT Narrative [facility] - 08/14/2024 2:01 PM CDT EPIC results best viewed via link to PDF [facility] [address], [address], [place] [address] Note to Patients: This report [...] SURGICAL PATHOLOGY REPORT * Consult Report * [facility] is providing an additional review of previously collected tissue. FINAL Patient Name: MISHA BROWNE Address: [address] [place] [address] Gender: F : 1980 (Age: 43) [facility] #: [id number] Patient Type: [facility] Location: UNKNOWN Taken: 08/02/2024 Received: 08/02/2024 Accessioned: 08/05/2024 Reported: 08/14/2024 Physician(s): Beatriz Lee M.D. [facility] Department of Pathology [address] [place] [address] P: [phone] F: [phone] Diagnosis: Consult material received from [place], [place] (OSC: [id number]; 11/17/2023) A. 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 Course was complicated by biopsy [...] show moderate inflammatory infiltrate. There is patchy ipmp-ww-kijsehar tubulitis. Small arteries and arterioles show mild [...] Received for review are ten slides labeled [id number], and nine slides labeled [id number], accompanied by a corresponding pathology report. The material originates from [facility], [place], [place]. Selected slide(s) may be digitally scanned [...] occasional mononuclear cells Arteriolar hyalinosis (ah): ah1 [id number] PAS-positive hyaline thickening in at least one [...] the Department of Pathology and Immunology at [facility], [address] [place] [address] CLIA # [id number] The performance characteristics of the testing cited in this report (if any) were determined by the [facility] Department of Pathology and Immunology [facility], as part of an ongoing quality project manager program and in compliance with federally mandated [...] and the performance characteristics determined by the [facility], [facility] Department of Pathology and Immunology. It has not been cleared or approved by the U.S. Food and Drug Administration. Any test designated as LDT was developed and its performance characteristics determined by [facility]. It has not been cleared or approved by the FDA. This test is used for clinical purposes and should not be regarded as investigational or for research. Report images and/or scanned reports, if included, only viewable in PDF version of report. us Beatriz Lee MD LAB PATHOLOGY ORDERA BLES Final Result [facility] [address] [address] * XR Scoliosis 6 or More Views [...] IMG XR PROCEDURES Final Re sult * Hepatitis panel, acute (04/16/2020 6:35 AM MATTRESS RENOVATOR) Hep A IgM Nonreactive Nonreactive [facility] Comment: Interpretive Data: If Hep [...] 19. Hep C Ab Nonreactive Nonreactive [facility] Comment:Antibodies to HCV no t detected. Does NOT exclude the possibility of recent exposure to HCV. HepBsAg Nonreactive Nonreactive [facility] Blood specimen (specimen) 04/16/2020 6:35 AM MATTRESS RENOVATOR 04/16/2020 7:34 AM MATTRESS RENOVATOR us Jacob Gates MD LAB MICROBIOLOGY - GENER AL ORDERABLES Final Result [facility] Department [place] [address] from Last 3 Months or Most Recently Relevant to Health Maintenance Insurance [employer] OPEN ACCESS [facility] PLAN [employer] OPEN ACCESS [facility] EXCHANGE IDPA Advance Directives For more information, please contact: [phone] * Full Code (Latest Code Status on [...] 6:15 AM 07/25/2019 11:51 PM Care Teams Manager Behavior Relationship Specialty Start Date End Date Lyly Fiore NP [address] [place] [address] PCP - General Nurse Practitioner 05/29/24 Beatriz Lee MD [address] [place] [address] Referring Physician Gastroenterology 07/25/19 Taylor Kitchen, cocktail waitressYarn Dumper 05/29/24
--- OUTSIDE RECORDS SUMMARY | 2024-10-19 22:09 | XMS_ITS | Encounter Summary ---
Author Organization [facility] Address [address] [place] [address] Care Team Providers Care Computer Scientist Name Role Phone Hermes Ramirez MD Primary Care Provider Reason for Visit * Reason Onset Date Comments Refill Request 04/01/2021 Encounter Details Date Type Department Care Team (Late st Contact Info) Description 04/01/2021 Refill [place] [facility] [address] [facility] [facility] [address] [place] [address] Lyly Mccollum MD [address] [facility] [address] [place] [address] Refill Request Social History Tobacco [...] on file Legal Sex Female 1:03 PM YOUTH SUPPORT 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 No / Unsure 03/02/2021 2:55 PM YOUTH SUPPORT WORKER documented as of this encounter Plan of Treatment Not on file documented as of this encounter Visit Diagnoses Not on filedocumented in this encounter Additional Health Concerns Assessment Noted Time PHQ-9 Depression Total Score: 9 03/02/20 3:09 PM YOUTH SUPPORT WORKER PHQ-2 Depression Total Score: 0 03/10/20 11:51 AM YOUTH SUPPORT WORKER documented as of this encounter Care Teams Computer Scientist Relationship Specialty Start Date End Date Hermes Ramirez MD [address] [place] [address] PCP - General 05/28/20 documented as of this encounter
--- OUTSIDE RECORDS SUMMARY | 2024-10-19 22:09 | XMS_ITS | Encounter Summary ---
Author Organization [facility] Address [address] [place] [address] Care Team Providers Care Skate Shop Attendant Name Role Phone Hermes Ramirez MD Primary Care Provider Reason for Visit * Reason Comments Clinical Social Work Intervention elsa dixon Encounter Details Date Type Department Care Team (Latest Contact Info) Description 01/19/2022 Patient Outreach [facility] [address] [facility] [facility] [place] [address] Ho Humphreys LCSW [address] [facility] [address] [place] [address] Clinical Social Work Intervention (scheduling) Social History [...] on file Legal Sex Female 1:03 PM TRUCK UNLOADER Gender Identity Not on file Sexual Orientation [...] documented as of this encounter Care Teams Skate Shop Attendant Relationship Specialty Start Date End Date Hermes Ramirez MD [address] [place], [place] [address] PCP - General 05/28/20 documented as of this encounter
--- OUTSIDE RECORDS SUMMARY | 2024-10-19 22:09 | XMS_ITS | Clinical Summary ---
Author Organization [facility] Address [address] [place] [address] Phone Care Team Providers Care Trimmer Machine Operator Name Role Phone Hermes Ramirez MD Primary Care Provider [phone] Allergies Active Allergy Reactions Criticality Noted Date [...] BEDTIME 2 Active Butalbital-APAP -Caff-Cod (Fioricet/Codei ne) 97-090-61-30 MG Capsule Take by mouth. 2 Active [...] 07/26/2024 5:51 PM CDT Emergency [facility] Emergency [address] [place] [address] Gabriel Mcintyre PAC GERD (gastroesophageal reflux disease) [...] this topic Insurance MEDICAID BL[place] [facility] [email or web address] Care Teams Trimmer Machine Operator Relationship Specialty Start Date End Date Hermes Ramirez MD [address] [address] PCP - General Family Medicine 05/09/18
--- OUTSIDE RECORDS SUMMARY | 2024-10-19 22:09 | XMS_ITS | Encounter Summary ---
Author Organization [facility] Address [address] [place] [address] Care Team Providers Care Software Engineering Associate Manager Name Role Phone Ashley ZUNIGA MD, Hermes Perez Primary Care Provid er Lyly Fiore NP Primary Care Provider [phone] Encounter Details Date Type Department Care Team (Late st Contact Info) Description 02/22/2024 Hospital Follow-up Call [facility] Cardiovascular Care Unit [address] [place] [address] Zulma Ardon, RN Social History Tobacco Use [...] time in the past 12 m [facility], were you homeless or living in a residential (including now)? No 02/20/2024 Comments No Sex and Gender Information Value Date Recorded Sex Assigned at Female 04/05/2024 4:26 PM COMPUTER SYSTEMS SECURITY ADMINISTRATOR Legal Sex Female 9:15 PM COMPUTER SYSTEMS SECURITY ADMINISTRATOR Gender Identity Not on file [...] Rhinovirus 02/16/2024 02/16/2024 02/26/2024 12:3 2 AM COMPUTER SYSTEMS SECURITY ADMINISTRATOR COVID-19 Rule Out 08/26/2024 08/26/2024 08/26/2024 11:07 PM CDT Respiratory Rule Out 08/26/2024 08/26/2024 025 11:06 PM CDT documented as of this encounter Care Teams Software Engineering Associate Manager Relationship Specialty Start Date End Date Hermes Ramirez III, MD [address] [address] PCP - General FAMILY PRACTICE 06/20/17 04/13/24 Lyly Fiore NP [address] [place] [address] PCP - General NURSE PRACTITIONER 04/14/24 documented as of this encounter
--- OUTSIDE RECORDS SUMMARY | 2024-10-19 22:09 | XMS_ITS | Encounter Summary ---
Author Organization [facility] Address [address] [facility] [address] [place] [address] Care Team Providers Care Environmental Maintenance Worker Name Role Phone Hermes Ramirez MD Primary Care Provider Reason for Visit * Reason Onset Date Comments Refill Request 01/05/2021 Encounter Details Date Type Department Care Team (Late st Contact Info) Description 01/05/2021 Refill [facility] [address] [facility] [address] [place] [address] Vivian Ayala MD [address] [facility] [address] [place] [address] Refill Request Social History Tobacco [...] on file Legal Sex Female 1:03 PM TRAIN ENGINEER Gender Identity Not on file Sexual [...] as of this encounter Care Teams Environmental Maintenance Worker Relationship Specialty Start Date End Date Hermes Ramirez MD [address] [place] [address] PCP - General 05/28/20 documented as of this encounter
--- OUTSIDE RECORDS SUMMARY | 2024-10-19 22:10 | XMS_ITS | Encounter Summary ---
Author Organization [facility] Address [address] [place] [address] Care Team Providers Care Rag Inspector Name Role Phone Adebayo Lyly PÉREZ Primary Care Provider [phone] Reason for Visit * Reason Comments Headache Encounter Details Date Type Department Care Team (Late st Contact Info) Description 10/18/2024 9:00 PM CDT - 10/18/2024 10:23 PM CDT Emergency [facility] [address] [place] [address] Allen Foster MD [address] [place] [id number] Headache Discharge Disposition: Home or Self Care [...] any time in the past 12 m [facility], were you homeless or living in a intermediate (including now)? No 02/20/2024 Comments No Sex and Gender Information Value Date Recorded Sex Assigned at Female 04/05/2024 4:26 PM BREAD MOLDER Legal Sex Female 9:15 PM BREAD MOLDER Gender Identity Not on file Sexual [...] Mass Index 32.92 10/18/2024 9:05 PM CDT documented in this encounter Functional Status * Are you [...] 4:08 AM Kimmy Andino RN Active * Calculated C-SSRS Risk Score (Lifetime/Recent) Answer Date of Assessment Author Status No Risk Indicated 10/18/2024 9:05 PM ALICIAT Jane Nicolas RN Active * [place] Suicide Severity Rating Scale (Screener/Recent Self-Report) Question Answer Date of Assessment Author Status 1. Wish to be (Past 1 Month) No 10/18/2024 9:05 PM CDT Anh Nicolas RN Acti ve 2. Non-Specific Active Suicidal Thoughts (Past 1 Month) No 10/18/2024 9:05 PM ALICIAT Anh Nicolas RN Acti ve 6. Suicidal Behavior (Lifetime) No 10/18/2024 9:05 PM ALICIAT Anh Nicolas RN Acti ve documented as of this encounter Mental Status * Because of a physical, mental, or emotional condition, do you have serious difficulty concentrating, remembering, or making decisions? Answer Entry Date Author Status No 02/20/2024 4:08 AM Kimmy Andino RN Active documented in this encounter Medications at Time [...] tablet (50 mg total) by mouth daily. ENVARSUS XR [...] total) by mouth daily. 60 tablet 02/20/2024 documented as of this encounter ED Notes * Allen Foster MD - 10/18/2024 9:10 PM CDT Chief Complaint Chief Complaint Patient presents with Headache History of Present Illness This is a 44-year-old female patient with history of migraine headaches presents to the emergency department complaints of headache. She has had a headache off and on over the last several days. Painis worst on the right side of her head. She has associated nausea, no vomiting. She took Tylenol with minimal relief. Medical History ALLERGIES: Review of patient's allergies indicates: Allergen Reactions Azithromycin Unknown Medication interaction Erythromycin Unknown and Other (see comment) Other reaction(s): Medication interaction Medication interaction Gentamicin Other (see comment) Medication interaction Ketorolac Other (see comment) Ketorolac Tromethamine Other (see comment) KIDNEY Other reaction(s): Kidney failure as a complication of care. RENAL TOXICITY. Nsaids Other (see comment) Contraindicated to imunosupressants MEDICATIONS: Prior to Admission medications Medication Sig Start Date End Date Taking? Authorizing Provider albuterol sulfate HFA 108 (90 Base) MCG/ACT inhaler Inhale 2 puffs into the lungs every 4 (four) hours as needed for Wheezing or Shortness of breath. 02/12/24 Kris Caruso NP amLODIPine (NORVASC) 5 MG tablet Take 1 tablet (5 mg total) by mouth daily. Default History Genericprovider azaTHIOprine (IMURAN) 50 MG tablet Take 1 tablet (50 mg total) by mouth daily. Default History Genericprovider ENVARSUS XR 1 MG TABLET SR 24 HR tablet Take 3 tablets (3 mg total) by mouth every morning before breakfast. Takes with 4 mg tablet for total of 7 mg daily 11/30/23 Default History Genericprovider ENVARSUS XR 4 MG TABLET SR 24 HR Take 4 mg by mouth daily. Takes with 1 mg tablets x 3 (total dose is 7 mg) 11/30/23 Default History Genericprovider gabapentin (NEURONTIN) 600 MG tablet Take 1 tablet (600 mg total) by mouth 2 (two) times daily. Default History Genericprovider LORazepam (ATIVAN) 0.5 MG tablet Take 1 tablet (0.5 mg total) by mouth. 10/26/21 Default History Genericprovider metoprolol succinate ER (TOPROL-XL) 100 MG 24 hr tablet Take 1 tablet (100 mg total) by mouth 2 (two) times a day. 12/30/19 [facility] predniSONE (DELTASONE) 5 mg tablet Take 1 tablet (5 mg total) by mouth daily. Default History Genericprovider topiramate (TOPAMAX) 100 MG tablet Take 1 tablet (100 mg total) by mouth 2 (two) times daily. 10/27/21 Default History Genericprovider venlafaxine (EFFEXOR) 37.5 MG tablet Take 1 tablet (37.5 mg total) by mouth daily. 02/20/24 Nereyda Mariscal MD PAST MEDICAL HISTORY: Past Medical History[1] PAST SURGICAL HISTORY: Past Surgical History[2] FAMILY HISTORY: Family History[3] SOCIAL HISTORY: Social History[4] Review of Systems Review of Systems Review of systems as per HPI otherwise all systems were reviewed and found to be negative Physical Exam Filed Vitals: 10/18/24 2105 BP: (!) 153/94 Pulse: 74 Resp: 16 Temp: 98 ??F (36.7 ??C) SpO2: 99% Weight: 81.6 kg (180 lb) Height: 1.575 m (5' 2) Physical Exam Constitutional: Appearance: Normal appearance. HENT: [...] No results found for this visit on 10/18/24. LABORATORY STUDIES: No results found for this visit on 10/18/24. IMAGING STUDIES No orders to display ED Course / Medical Decision Making Medical Decision Making 44-year-old female presents with flare in chronic low back pain as well as a migraine and anxiety. She has medical history of liver transplant x 2 as well as a kidney transplant cannot have any anti-inflammatories. States her typical cocktail is Benadryl Zofran and Dilaudid. Patient is due to go back to pain management at [place] on October 29 Patient is given Benadryl Zofran and Dilaudid, she requests IV Benadryl Patient refuses droperidol injection Discharge to home Follow-up with her pain provider Clinical Impression Migraine headache (Primary) Disposition: Discharge [1] Past Medical History: Diagnosis Date Anemia Biliary atresia (CMS/HCC) congenital Chronic kidney disease Migraine Thrombocytopenia [2] Past Surgical History: Procedure Laterality Date SECTION INGUINAL HERNIA Bilateral age 5 LIVER TRANSPLANTATION [3] Family History Problem Relation Name Age of Onset Diabetes Neg Hx [4] Social History Tobacco Use Smoking status: Every Day Current packs/day: 0.50 Average packs/day: 0.5 packs/day for 15.0 years (7.5 ttl pk-yrs) Types: Cigarettes Smokeless tobacco: Never Substance Use Topics Alcohol use: No Drug use: No Allen Foster MD 10/19/24 1731 * Anh Nicolas RN - 10/18/2024 9:04 PM CDT Pt arrives with c/o of right sided migraine with nausea. Pts states she took 1000mg Tylenol at 1700 documented in this encounter Plan of Treatment [...] 50 mg, Oral, Once, 1 dose, On Mon10/18/24 at 2130 Given 10/18/2024 9:30 PM CDT 50 mg HYDROmorphone (DILAUDID) injection 0.5 mg 0.5 mg, Intramuscular, Once, 1 dose, On Mon10/18/24 at 2130, Administer slowly over at least 2-3 minutes. Given 10/18/2024 9:31 PM CDT 0.5 mg Left Deltoid ondansetron (ZOFRAN-ODT) disintegrating tablet 4 mg 4 mg, Oral, Once, 1 dose, On Mon10/18/24 at 2130 Given 10/18/2024 9:31 PM CDT 4 mg documented in this encounter Active and Recently Administered Medications Times are shown in CDT. Scheduled Medication Order 10/16/2024 10/17/2024 10/18/2024 diphenhydrAMINE (BENADRYL) capsule 50 mg (COMPLETED) 50 mg, Oral, Once, 1 dose, On Mon10/18/24 at 2130 2130 (Given - Provid er: Jemima Underwood RN) droperidol (INAPSINE) injection 2.5 mg 2.5 mg, Intramuscular, Once, 1 dose, On Mon10/18/24 at 2130, Prior to administration of single doses > 2.5 mg, patients should undergo EKG due to potential to cause serious cardiac arrhythmias. Mandatory EKG & continuous telemetry monitoring for all doses single doses > 2.5 mg & any cumulative dosing > 2.5 mg. If the QT interval is >440 jase-sec for males or >450 jase-sec for females, droperidol should be avoided. 2129 (Not Given - Pr ovider: Jemima Underwood RN - Reason: Patient/family declined) HYDROmorphone (DILAUDID) injection 0.5 mg (COMPLETED) 0.5 mg, Intramuscular, Once, 1 dose, On Mon10/18/24 at 2130, Administer slowly over at least 2-3 minutes. 2130 (Given - Provid er: Jemima Underwood RN) ondansetron (ZOFRAN-ODT) disintegrating tablet 4 mg (COMPLETED) 4 mg, Oral, Once, 1 dose, On Mon10/18/24 at 2130 2130 (Given - Provid er: Jemima Underwood RN) documented in this encounter Care Teams Rag Inspector Relationship Specialty Start Date End Date Lyly Fiore NP [address] [place] [address] PCP - General NURSE PRACTITIONER 04/14/24 documented as of this encounter
--- OUTSIDE RECORDS SUMMARY | 2024-10-19 22:10 | XMS_ITS | Encounter Summary ---
Author Organization [facility] Address [address] [place] [address] Care Team Providers Care Supervisor Power Reactor Name Role Phone Chelsyolive Lyly ELISA Primary Care Provider [phone] Reason for Visit * Reason Comments Headache Back Pain Encounter Details Date Type Department Care Team (Late st Contact Info) Description 10/17/2024 9:23 PM CDT - 10/17/2024 11:06 PM CDT Emergency [facility] [place] [address] [place] [address] [address] Karmen Byrd PA [address] [place] [address] Headache; Back Pain Discharge Disposition: Home or [...] any time in the past [address] [facility], were you homeless or living in a half-way (including now)? No 02/20/2024 Comments No Sex and Gender Information Value Date Recorded Sex Assigned at Female 04/05/2024 4:26 PM ROOF BOLTER OPERATOR Legal Sex Female 9:15 PM ROOF BOLTER OPERATOR Gender Identity Not on file Sexual Orientation Not on file documented as of this encounter Last Filed Vital Signs Vital Sign Reading Time Taken Comments Blood Pressure 160/103 10/17/2024 11:05 PM CDT Pulse 87 10/17/2024 11:05 PM CDT Temperature 36.4 C (97.5 F) 10/17/2024 11:05 PM CDT Respiratory Rate 20 10/17/2024 11:05 PM CDT Oxygen Saturation 99% 10/17/2024 11:05 PM CDT Inhaled Oxygen Concentration - - Weight 81.6 kg (180 lb) 10/17/2024 8:58 PM CDT Height 157.5 cm (5' 2) 10/17/2024 8:58 PM CDT Body Mass Index 32.92 10/17/2024 8:58 PM CDT documented in this encounter Functional [...] of Assessment Author Status No Risk Indicated 10/17/2024 9:00 PM Demetrius Sykes RN Active * [place] Suicide Severity Rating Scale (Screener/Recent Self-Report) Question Answer Date of Assessment Author Status 1. Wish to be (Past 1 Month) No 10/17/2024 9:00 PM Demetrius Sykes RN Active 2. Non-Specific Active Suicidal Thoughts (Past 1 Month) No 10/17/2024 9:00 PM Demetrius Sykes RN Active 6. Suicidal Behavior (Lifetime) No 10/17/2024 9:00 PM Demetrius Sykes RN Active documented as of this encounter Mental Status * Because of a physical, mental, or emotional condition, do you have serious difficulty concentrating, remembering, or making decisions? Answer Entry Date Author Status No 02/20/2024 4:08 AM Kimmy Andino RN Active documented in this encounter Discharge Instructions * Attachments The following attachments cannot be sent through Care Everywhere. * Headache, Adult ED ([place]) * Chronic pain ([place]) documented in this encounter Medications at Time [...] as of this encounter ED Notes * Demetrius Snowden RN - 10/17/2024 8:56 PM CDT PT ARRIVES AMBULATORY TO THE ED FOR C/C OF HEADACHE AND BACK PAIN. PT STATES SHE IS HAVING A MIGRAINE AND BACK PAIN. PT STATES SHE WAS SEEN HERE FOR THE SAME SYMPTOMS. PT STATES BACK PAIN STARTS IN THE MID TO LOWER BACK AND RADIATES DOWN BOTH LEGS. documented in this encounter Plan of Treatment Not on file documented as of this encounter Visit Diagnoses Diagnosis Chronic back pain- Primary Backache, unspecified Chronic headache Headache Stress Other psychological or physical stress, not elsewhere classified documented in this encounter Administered Medications Inactive Administered Medications - up to 3 most recent administrations Medication Order MAR Action Action Date Dose Rate Site diphenhydrAMINE (BENADRYL) injection 25 mg 25 mg, Intravenous, Once, 1 dose, On [facility] 10/17/24 at 2145, For IV administration, give no faster than 25 mg/min. Given 10/17/2024 10:03 PM CDT 25 mg diphenhydrAMINE (BENADRYL) injection 25 mg 25 mg, Intravenous, Once, 1 dose, On [place] 10/17/24 at 2230, For IV administration, give no faster than 25 mg/min. Given 10/17/2024 10:37 PM CDT 25 mg HYDROmorphone (DILAUDID) injection 0.5 mg 0.5 mg, Intravenous, Once, 1 dose, On [place] 10/17/24 at 2145, Administer slowly over at least 2-3 minutes. Given 10/17/2024 10:03 PM CDT 0.5 mg HYDROmorphone (DILAUDID) injection 0.5 mg 0.5 mg, Intravenous, Once, 1 dose, On [place] 10/17/24 at 2230, Administer slowly over at least 2-3 minutes. Given 10/17/2024 10:37 PM CDT 0.5 mg ondansetron (ZOFRAN) injection 4 mg 4 mg, Intravenous, Once, 1 dose, On [place] 10/17/24 at 2145, IV push over 2-5 minutes. Given 10/17/2024 10:03 PM CDT 4 mg sodium chloride 0.9% bolus infusion 500 mL 500 mL, Intravenous, Administer over 30 Minutes, Once, 1 dose, On [place] 10/17/24 at 2145 New Bag 10/17/2024 10:04 PM CDT 500 mLs 1000 mL/hr documented in this encounter Active and Recently Administered Medications Times are shown in CDT. Scheduled Medication Order 10/15/2024 10/16/2024 10/17/2024 diphenhydrAMINE (BENADRYL) injection 25 mg (COMPLETED) 25 mg, Intravenous, Once, 1 dose, On [place] 10/17/24 at 2145, For IV administration, give no faster than 25 mg/min. 2202 (Given - Provid er: Reagan Cohen RN) diphenhydrAMINE (BENADRYL) injection 25 mg (COMPLETED) 25 mg, Intravenous, Once, 1 dose, On [place] 10/17/24 at 2230, For IV administration, give no faster than 25 mg/min. 2236 (Given - Provid er: Reagan Cohen RN) HYDROmorphone (DILAUDID) injection 0.5 mg (COMPLETED) 0.5 mg, Intravenous, Once, 1 dose, On [place] 10/17/24 at 2145, Administer slowly over at least 2-3 minutes. 2202 (Given - Provid er: Reagan Cohen RN) HYDROmorphone (DILAUDID) injection 0.5 mg (COMPLETED) 0.5 mg, Intravenous, Once, 1 dose, On [place] 10/17/24 at 2230, Administer slowly over at least 2-3 minutes. 2236 (Given - Provid er: Reagan Cohen RN) ondansetron (ZOFRAN) injection 4 mg (COMPLETED) 4 mg, Intravenous, Once, 1 dose, On [place] 10/17/24 at 2145, IV push over 2-5 minutes. 2202 (Given - Provid er: Reagan Cohen RN) sodium chloride 0.9% bolus infusion 500 mL (COMPLETED) 500 mL, Intravenous, Administer over 30 Minutes, Once, 1 dose, On [place] 10/17/24 at 2145 2203 (New Bag - Prov ider: Reagan Cohen RN)2237 (Infusion Stop Time - Provider: Reagan Cohen RN) documented in this encounter Care Teams Supervisor Power Reactor Relationship Specialty Start Date End Date Lyly Fiore NP [address] [place] [address] PCP - General NURSE PRACTITIONER 04/14/24 documented as of this encounter
--- OUTSIDE RECORDS SUMMARY | 2024-10-19 22:10 | XMS_ITS | Encounter Summary ---
Author Organization [facility] Address [address] [place] [place] [address] Care Team Providers Care Tight Barrel Inspector Name Role Phone Hermes Ramirez MD Primary Care Provider [phone] Reason for Visit * Reason Onset Date Comments Refill Request 09/06/2020 Encounter Details Date Type Department Care Team (Late st Contact Info) Description 09/06/2020 Refill [place] [facility] [address] [facility] [address] [place], [place] [address] [place] [address] [place] [address] Refill Request Social History Tobacco Use Types Packs/Day Years Used Date Smoking Tobacco: Former Cigarettes 0.5 20 0 03/20/2000 - 03/20/2020 Smokeless Tobacco: Never Social Connections Answer Date Recorded Conversations with friends/family/neighbors per week Not on file 05/25/2020 Comments No Sex and Gender Information Value Date Recorded Sex Assigned at Not on file Legal Sex Female 1:03 PM BROWNFIELD PROGRAM 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
--- OUTSIDE RECORDS SUMMARY | 2024-10-19 22:10 | XMS_ITS | Encounter Summary ---
Author Organization [facility] Address [address] [facility] [place] [address] Care Team Providers Care Bookkeepers Supervisor Name Role Phone Hermes Ramirez MD Primary Care Provider Reason for Visit * Reason Onset Date Comments Refill Request 09/06/2020 Encounter Details Date Type Department Care Team (Late st Contact Info) Description 09/06/2020 Refill [facility] [address] [phone] Allen Manzano PAVasquez [address] [facility] [address] [place] [phone] Refill Request Social History Tobacco Use Types Packs/Day Years Used Date Smoking Tobacco: Former Cigarettes 0.5 20 0 03/20/2000 - 03/20/2020 Smokeless Tobacco: Never Social Connections Answer Date Recorded Conversations with friends/family/neighbors per week Not on file 05/25/2020 Comments No Sex and Gender Information Value Date Recorded Sex Assigned at Not on file Legal Sex Female 1:03 PM REHAB TRAINER Gender Identity Not on file Sexual Orientation Not on file documented as of this encounter Plan of Treatment Not on file documented as of this encounter Visit Diagnoses Not on filedocumented in this encounter Additional Health Concerns Assessment Noted Time PHQ-2 Depression Total Score: 0 07/07/19 21 9:51 AM CDT documented as of this encounter Care Teams Bookkeepers Supervisor Relationship Specialty Start Date End Date Hermes Ramirez MD [address] [place] [address] PCP - General 05/28/20 documented as of this encounter
--- OUTSIDE RECORDS SUMMARY | 2024-10-19 22:10 | XMS_ITS | Encounter Summary ---
Author Organization [facility] Address [address] [place] [address] Care Team Providers Care Motor Vehicle Parts Interpreter Name Role Phone Hermes Ramirez MD Primary Care Provider Encounter Details Date Type Department Care Team (Late st Contact Info) Description 11/21/2023 Telephone [facility] Medicine [address] [place], [place] [phone] Ajith Wild MD [address] [facility] [address] [place], [place] [phone] Social History Tobacco Use Types Packs/Day Years Used Date Smoking Tobacco: Some Days Cigarettes 0.5 21.6 Started: 03/20/2000; Last attempted to quit: 03/20/2020 [...] Currently or in the past 3 m [facility], have you worried your food [...] on file Legal Sex Female 1:03 PM DIRECTOR OF PUBLIC HEALTH Gender Identity Not on file Sexual [...] documented as of this encounter Care Teams Motor Vehicle Parts Interpreter Relationship Specialty Start Date End Date Hermes Ramirez MD [address] [place] [address] PCP - General 05/28/20 documented as of this encounter
--- OUTSIDE RECORDS SUMMARY | 2024-10-19 22:10 | XMS_ITS | Encounter Summary ---
Author Organization [facility] Address [address] [place] [address] Care Team Providers Care Machine Container Washer Name Role Phone Hermes Ramirez MD Primary Care Provider [phone] Reason for Visit * Reason Comments Refill Request Encounter Details Date Type Department Care Team (Late st Contact Info) Description 12/06/2023 Refill [facility] [address] [place], [place] [phone] Levi Sheriff, ELISA [address] [place] [address] Refill Request Social History Tobacco Use Types [...] 3 m [facility], has lack of transportation kept you from [...] on file Legal Sex Female 1:03 PM VIBRATION TECHNICIAN Gender Identity Not on file Sexual [...] documented as of this encounter Care Teams Machine Container Washer Relationship Specialty Start Date End Date Hermes Ramirez MD [address] [place] [address] PCP - General 05/28/20 documented as of this encounter
--- OUTSIDE RECORDS SUMMARY | 2024-10-19 22:10 | XMS_ITS | Encounter Summary ---
Author Organization [facility] Address [address] [place] [address] Care Team Providers Care Hydrometeorologist Name Role Phone Hermes Ramirez MD Primary Care Provider Reason for Visit * Reason Onset Date Comments Refill Request 09/02/2022 Encounter Details Date Type Department Care Team (Late st Contact Info) Description 09/02/2022 Refill [place] [facility] [address] [phone] Tico Salmon NP [address] [place] [address] Refill Request Social History Tobacco [...] Currently or in the past 3 m [facility], have you worried your food would run out before you had money to buy more? No 2021 In the past 12 months, have you run out of food or been unable to get more? No 02/18/2022 Transportation Needs Answer Date Record ed Currently or in the past 3 m [facility], has lack of transportation kept [...] on file Legal Sex Female 1:03 PM MONOMER RECOVERY SUPERVISOR Gender Identity Not on file Sexual [...] documented as of this encounter Care Teams Hydrometeorologist Relationship Specialty Start Date End Date Hermes Ramirez MD [address] [place] [address] PCP - General 05/28/20 documented as of this encounter
--- OUTSIDE RECORDS SUMMARY | 2024-10-19 22:10 | XMS_ITS ---
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 Marked as Active Follow-up on 05/09/2020 Kidney, Liver CoordinatorMisty Ash RN Phone: N/A Fax: N/A Email: N/A [place] Organ Diagnosis Organ Primary Contributory Kidney Calcineurin [...] N/A Palak Garnica MD Transplant Attending Physician [phone] [email or web address] Nirav Carpio MD Transplant Surgeon [phone] N/A Snow Orozco MD Transplant Warehouse Representative [phone] [email or web address] Post-Transplant Pre-Transplant Admitted: 05/08/2020 Referred: 04/24/2020 Transplanted: 05/09/2020 Evaluation began: Discharged: 05/18/2020 Committee: 04/30/2020 Center waitlisted:
--- OUTSIDE RECORDS SUMMARY | 2024-10-19 22:10 | XMS_ITS | Encounter Summary ---
Author Organization [facility] Address [address] [place] [id number] Care Team Providers Care Basketball Commentator Name Role Phone Ashley ZUNIGA MD, Hermes Perez Primary Care Provid er Lyly Fiore NP Primary Care Provider [phone] Encounter Details Date Type Department Care Team (Late st Contact Info) Description 06/03/2017 Abstract [facility] CONVERSION [address] [place] [address] , Generic ConversionMD Social History Tobacco Use Types Packs/Day Years Used Date Smoking Tobacco: Never Assessed Comments Unknown Sex and Gender Information Value Date Recorded Sex Assigned at Female 04/05/2024 4:26 PM ASSIGNER Legal Sex Female 9:15 PM ASSIGNER Gender Identity Not on file Sexual Orientation Not on file documented as of this encounter Plan of Treatment Not on file documented as of this encounter Visit Diagnoses Not on filedocumented in this encounter Additional Health Concerns Infection Onset Date Last Indicated Resolved Time COVID-19 Rule Out 03/30/2020 03/30/2020 03/30/2020 9:29 PM ASSIGNER COVID-19 Rule Out 03/30/2020 03/30/2020 03/31/2020 12:28 PM ASSIGNER COVID-19 Rule Out 02/16/2024 02/16/2024 02/16/2024 9:16 PM ASSIGNER Rhinovirus 02/16/2024 02/16/2024 02/26/2024 12:3 2 AM ASSIGNER COVID-19 Rule Out 08/26/2024 08/26/2024 08/26/2024 11:07 PM CDT Respiratory Rule Out 08/26/2024 08/26/2024 025 11:06 PM CDT documented as of this encounter Care Teams Basketball Commentator Relationship Specialty Start Date End Date Hermes Ramirez III, MD [address] [address] PCP - General FAMILY PRACTICE 06/20/17 04/13/24 Lyyl Fiore NP [address] [place] [address] PCP - General NURSE PRACTITIONER 04/14/24 documented as of this encounter
--- OUTSIDE RECORDS SUMMARY | 2024-10-19 22:10 | XMS_ITS | Encounter Summary ---
Author Organization [facility] Address [address] [place] [address] Care Team Providers Care Dry Heat Cabinet Attendant Name Role Phone Hermes Ramirez MD Primary Care Provider Reason for Visit * Reason Onset Date Comments Refill Request 04/08/2023 Encounter Details Date Type Department Care Team (Late st Contact Info) Description 04/08/2023 Refill [facility] [address] [id number] Tico Salmon NP [address] [place] [address] Refill Request Social History Tobacco [...] Currently or in the past 3 m [facility], have you worried your food would run [...] on file Legal Sex Female 1:03 PM HEALTH INFORMATICS INSTRUCTOR Gender Identity Not on file Sexual [...] documented as of this encounter Care Teams Dry Heat Cabinet Attendant Relationship Specialty Start Date End Date Hermes Ramirez MD [address] [place] [id number] PCP - General 05/28/20 documented as of this encounter
--- OUTSIDE RECORDS SUMMARY | 2024-10-19 22:10 | XMS_ITS ---
Author Organization [facility] Address [address] [place] [address] Care Team Providers Care Actuarial Associate Name Role Phone Beatriz Lee MD Unavailable [phone] Lyly Fiore NP Primary Care Provider Taylor Kitchen RN Unavailable Unav ailable Transplant Episode Liver Recipient [facility] ([place], [place]) - [facility] Transplanted on 05/09/2020 Marked as Active Follow-up on 07/01/2024 Reason: In Transition Process Liver CoordinatorTaylor Kitchen RN Phone: N/A Fax: N/A Email: N/A Transplanted Elsewhere: [facility] ([place], [place]) - [place] Coordinator: Phone: Fax: [place] 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
--- OUTSIDE RECORDS SUMMARY | 2024-10-19 22:10 | XMS_ITS | Encounter Summary ---
Author Organization [facility] Address [address] [place] [address] Care Team Providers Care Head Of Ethics And Compliance Name Role Phone Chelsyolive Lyly ELISA Primary Care Provider [phone] Encounter Details Date Type Department Care Team (Latest Contact Info) Description 10/18/2024 Travel Social History Tobacco Use Types Packs/Day [...] any time in the past 12 m [facility], were you homeless or living in a prison (including now)? No 02/20/2024 Comments No Sex and Gender Information Value Date Recorded Sex Assigned at Female 04/05/2024 4:26 PM CUSTOMER SALES ADVISOR Legal Sex Female 9:15 PM CUSTOMER SALES ADVISOR Gender Identity Not on file Sexual [...] Status No Risk Indicated 10/18/2024 9:05 PM Jane Hyatt RN Active * Archer Suicide Severity Rating Scale (Screener/Recent Self-Report) Question Answer Date of Assessment Author Status 1. Wish to be (Past 1 Month) No 10/18/2024 9:05 PM ALICIAT Anh Nicolas RN Acti ve 2. Non-Specific Active Suicidal Thoughts (Past 1 Month) No 10/18/2024 9:05 PM Anh Hyatt RN Acti ve 6. Suicidal Behavior (Lifetime) No 10/18/2024 9:05 PM Anh Hyatt RN Acti ve documented as of this encounter Mental Status * Because of a physical, mental, or emotional condition, do you have serious difficulty concentrating, remembering, or making decisions? Answer Entry Date Author Status No 02/20/2024 4:08 AM CUSTOMER SALES ADVISOR Kimmy Hayes RN Active documented in this encounter Plan of Treatment Not on file documented as of this encounter Visit Diagnoses Not on filedocumented in this encounter Care Teams Head Of Ethics And Compliance Relationship Specialty Start Date End Date Lyly Fiore NP [address] [place] [address] PCP - General NURSE PRACTITIONER 04/14/24 documented as of this encounter
--- OUTSIDE RECORDS SUMMARY | 2024-10-19 22:10 | XMS_ITS | Encounter Summary ---
Author Organization [facility] Address [address] [facility] [address] [place] [address] Care Team Providers Care Automatic Washer Mechanic Name Role Phone Hermes Ramirez MD Primary Care Provider Reason for Visit * Reason Onset Date Comments Refill Request 06/01/2023 Encounter Details Date Type Department Care Team ([facility] st Contact Info) Description 06/01/2023 Refill [facility] [address] [address] Allen Manzano PAVasquez [address] [facility] [address] [place] [address] Refill Request Social History Tobacco [...] Currently or in the past 3 m [facility], have you worried your food would [...] on file Legal Sex Female 1:03 PM YARD ASSOCIATE Gender Identity Not on file Sexual [...] documented as of this encounter Care Teams Automatic Washer Mechanic Relationship Specialty Start Date End Date Hermes Ramirez MD [address] [place] [address] PCP - General 05/28/20 documented as of this encounter
--- OUTSIDE RECORDS SUMMARY | 2024-10-19 22:10 | XMS_ITS | Continuity of Care Document ---
Author Organization [facility] Address [address] [place] [address] Care Team Providers Care Show Design Supervisor Name Role Phone Adebayo Lyly Ng Primary Care Physician Encounter ONOFRE MARILUZ [id number] Date(s): 10/18/24 - 10/18/[address] [address]- [place] Encounter Diagnosis Folliculitis(Discharge Diagnosis) - 10/18/24 Discharge Disposition: Home or Self Care Attending Physician: Mauricio Limon MD Admitting Physician: Mauricio Lmion MD Encounter Type: Emergency Allergies, Adverse Reactions, Alerts [...] from: Title:ED Provider Note Author:Mauricio Limon MD Date:10/18/24 Assessment/Plan Folliculitis L73.9 Orders: Keflex 500 mg oral capsule, 500 mg = 1 cap, Oral, every 8 hr, X 7 days, # 21 cap, 0 Refill(s), 10/25/24 4:18:00 CDT, Pharmacy: [facility]/pharmacy #[id number], 157.48, cm, 10/02/24 4:31:00 CDT, Height, 81.65, kg, 10/02/24 4:44:00 CDT, Weight Dosing, (Ordered) mupirocin 2% topical cream, 1 sanjiv, Topical, Daily, X 10 days, # 15 g, 0 Refill(s), 10/28/24 4:18:00 CDT, Pharmacy: [facility]/pharmacy #[id number], 157.48, cm, 10/02/24 4:31:00 CDT, Height, 81.65, kg, 10/02/24 4:44:00 CDT, Weight Dosing, (Ordered) Discharge Patient, 10/18/24 4:19:00 CDT, (Ordered) Patient Discharge Condition Stable condition Discharge Disposition Discharge home Patient Education Folliculitis Follow Up With When Contact Information Follow up with primary care provider Within 3 to 5 days Additional Instructions: Future Appointments Future Scheduled Tests Laboratory* CBC w/ Diff 10/15/24 * Comprehensive Metabolic Panel 10/15/24 Radiology* MRI Shoulder w/o Contrast Right 05/01/24 [...] hepatitis A adult vaccine 10/09/17 Recorded Medications ARIPiprazole 2 mg oral tablet 1 tab, Oral, Daily, # 90 tab, 0 Refill(s), Pharmacy: [facility] STORE [id number], 157.48, cm, 09/10/24 10:23:00CDT, Height, 82.55, kg, 09/10/24 10:28:00 CDT, Weight Dosing Start Date: 09/30/24 Status: Ordered Quantity: 90.0 Unit: tab Repeat number: 1 azaTHIOprine 50 mg oral tablet 50 mg = 1 tab, Oral, Daily, # 30 tab, 0 Refill(s), Pharmacy: 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, Height, 86.18, kg, 05/01/24 10:13:00 SURVEY RESEARCH ANALYST, Weight Dosing Start Date: 05/02/24 Stop Date: 06/01/24 Status: Ordered Quantity: 30.0 Unit: tab Repeat number: 1 butalbital/acetaminophen/caffeine 50 mg-325 mg-40 mg oral tablet 1 tab, Oral, Daily, # 30 tab, 0 Refill(s), Pharmacy: [id number][id number], 158.75, cm, 04/22/24 16:06:00 SURVEY RESEARCH ANALYST, Height, 89.36, kg, 04/22/24 16:15:00 SURVEY RESEARCH ANALYST, Weight Dosing Start Date: 04/24/24 Stop Date: 05/24/24 Status: Ordered Quantity: 30.0 Unit: tab Repeat number: 1 DULoxetine 60 mg oral delayed release capsule See Instructions, TAKE 1 CAPSULE BY MOUTH EVERY DAY, # 90 cap, 1 Refill(s), Pharmacy: [facility] STORE [id number], 157.48, cm, 07/31/24 8:53:00 CDT, Height, 86.64, kg, 07/31/24 8:56:00 CDT, Weight Dosing Start Date: 09/02/24 Status: Ordered Quantity: 90.0 Unit: cap Repeat number: 1 Envarsus XR 1 mg oral tablet, extended release 0 Refill(s) Start Date: 01/30/24 Status: Ordered Repeat number: 1 Keflex 500 mg oral capsule 500 mg = 1 cap, Oral, every 8 hr, X 7 days, # 21 cap, 0 Refill(s), 10/25/24 4:18:00 AM CDT, Pharmacy:[facility]/pharmacy #[id number], 157.48, cm, 10/02/24 4:31:00 CDT, Height, 81.65, kg, 10/02/24 4:44:00 CDT, Weight Dosing Start Date: 10/18/24 Stop Date: 10/25/24 Status: Ordered Quantity: 21.0 Unit: cap Repeat number: 1 LORazepam 0.5 mg oral tablet 0.5 mg = 1 tab, Oral, Daily, TAKE ONE TABLET BY MOUTH DAILY NEEDED FOR ANXIETY, # 14 tab, 0 Refill(s), [id number], 157.48, cm, 07/31/24 8:53:00 CDT, Height, 86.64, kg, 07/31/24 8:56:00 CDT, Weight Dosing Start Date: 07/31/24 Stop Date: 08/14/24 Status: Ordered Quantity: 14.0 Unit: tab Repeat number: 1 Metoprolol Succinate ER 100 mg oral tablet, extended release 1 tab, Oral, BID, # 60 tab, 1 Refill(s), Pharmacy: [facility] 7[address]46, 157.48, cm, 07/31/24 8:53:00 CDT, Height, 86.64, kg, 07/31/24 8:56:00 CDT, Weight Dosing Start Date: 08/21/24 Status: Ordered Quantity: 60.0 Unit: tab Repeat number: 1 mupirocin 2% topical cream 1 sanjiv, Topical, Daily, X 10 days, # 15 g, 0 Refill(s), 10/28/24 4:18:00 AM CDT, [id number], 157.48, cm, 10/02/24 4:31:00 CDT, Height, 81.65, kg, 10/02/24 4:44:00 CDT, Weight Dosing Start Date: 10/18/24 Stop Date: 10/28/24 Status: Ordered Quantity: 15.0 Unit: g Repeat number: 1 pantoprazole 40 mg oral delayed release tablet 40 mg = 1 tab, Oral, BID, # 60 tab, 0 Refill(s), [id number], 157.48, cm, 07/22/2509:27:00 CDT, Height, 90.72, kg, 07/22/24 10:32:00 CDT, Weight Dosing Start Date: 07/26/24 Status: Ordered Quantity: 60.0 Unit: tab Repeat number: 1 predniSONE 5 mg oral tablet 5 mg = 1 tab, Oral, Daily, with food or milk, # 30 tab, 0 Refill(s), Pharmacy: 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, Height, 86.18, kg, 05/01/24 10:13:00 SURVEY RESEARCH ANALYST, Weight Dosing Start Date: 05/02/24 Status: Ordered Quantity: 30.0 Unit: tab Repeat number: 1 Tall CAM boot Tall CAM boot, tall CAM boot, Supply, See instructions, # 1 EA, 0 Refill(s) Start Date: 10/15/24 Status: Ordered Quantity: 1.0 Unit: EA Repeat number: 1 Indications: Plantar fascial fibromatosis; Other sprain of left foot, initial encounter; Contracture, left ankle; venlafaxine 37.5 mg oral capsule, extended release 1 cap, Oral, Daily, # 90 cap, 0 Refill(s), Pharmacy: [facility] STORE [id number], 157.48, cm, 10/02/24 4:31:00 CDT, Height, 81.65, kg, 10/02/24 4:44:00 CDT, Weight Dosing Start Date: 10/14/24 Status: Ordered Quantity: 90.0 Unit: cap Repeat number: 1 Problem List Condition Confirmation Course Effective Dates Status H ealth Status Informant Calcaneal bursitis Confirmed Active Acne Confirmed Active Anxiety Confirmed Active Breast [...] cervical Confirmed Active Difficulty walking Confirmed Active Equinus contracture of ankle Confirmed Active Equinus contracture of left ankle Confirmed Active Gout Confirmed Active History of liver transplant Confirmed Active Heart murmur Confirmed Active Pain of left heel Confirmed Active History of fall Confirmed Active History of kidney transplant Confirmed Active Idiopathic thrombocytopenic purpura Confirmed Active Migraine headache Confirmed Active Pain, joint, multiple sites Confirmed Active Pulmonary nodules Confirmed Active Cervicalgia Confirmed Active Obesity Confirmed Active Pain in toes of both feet Confirmed Active Right knee pain Confirmed Active Pain of right scapula Confirmed Active Numbness and tingling of right arm Confirmed Active Chronic paronychia of finger Confirmed Active PUD (peptic ulcer disease) Confirmed Active Plantar fasciitis, bilateral Confirmed Active Plantar fasciitis of left foot Confirmed Active Thrombocytopenia Confirmed Active Rupture of plantar fascia of left foot Confirmed Active Right shoulder pain Confirmed Active [...] Oral [35.8-37.3 Deg C] 37.2 Deg C (10/18/24 4:20 AM) Peripheral Pulse Rate [60-100 bpm] 86 bp m (10/18/24 4:20 AM) Respiratory Rate [12-24 br/min] 20 br/mi n (10/18/24 4:20 AM) Blood Pressure [90-120/60-80 mmHg] 145/8 8mmHg *HI* (10/18/24 4:20 AM) Mean Arterial Pressure, Cuff [65-140 mmH g] 107 mmHg (10/18/24 4:20 AM) Weight 86 kg (10/18/24 4:20 AM) Weight Dosing 86.000 kg (10/18/24 4:20 AM) Height 157 cm (10/18/24 4:20 AM) Body Mass Index 34.89 kg/m2 (10/18/24 4:20 AM) Social History Social History Type Response Tobacco Current everyday tob acco user Tobacco Use:. Sex Sex Representation Female (finding) Hospital Discharge Instructions Patient Education 10/18/2024 04:19:37 Folliculitis Folliculitis Folliculitis occurs when hair follicles become inflamed. A hair follicle is a tiny opening in your skin where your hair grows from. This condition often occurs on the scalp, thighs, legs, back, and buttocks but can happen anywhere on the body. What are the causes? A common cause of this condition is an infection from bacteria. The type of folliculitis caused by bacteria can last a long time or go away and come back. The bacteria can live anywhere on your skin.They are often found in the nostrils. Other causes may include: ??? An infection from a fungus. ??? An infection from a virus. ??? Your skin touching some chemicals, such as oils and tars. ??? Shaving or waxing. ??? Milmay ointments or creams put on the skin. What increases the risk? You are more likely to develop this condition if: ??? Your body has a weak disease-fighting system (immune system). ??? You have diabetes. ??? You are obese. What are the signs or symptoms? Symptoms of this condition include: ??? Redness. ??? Soreness. ??? Swelling. ??? Itching. ??? Small white or yellow, itchy spots filled with pus (pustules) that appear over a red area. If the infection goes deep into the follicle, these may turn into a boil (furuncle). ??? A group of boils (carbuncle). These tend to form in hairy, sweaty areas of the body. How is this diagnosed? This condition is diagnosed with a skin exam. Your health care provider may take a sample of one ofthe pustules or boils to test in a lab. How is this treated? This condition may be treated by: ??? Putting a warm, wet cloth (warm compress) on the affected areas. ??? Taking antibiotics or applying them to the skin. ??? Applying or bathing with a solution that kills germs (antiseptic). ??? Taking an jymt-uua-xeeuvon medicine. This can help with itching. ??? Having a procedure to drain pustules or boils. This may be done if a pustule or boil contains alot of pus or fluid. ??? Having laser hair removal. This may be done when the condition lasts for a long time. Follow these instructions at home: Managing pain and swelling ??? If directed, apply heat to the [...] your skin turns bright red, remove the heat right away to prevent baez. The risk of baez is higher if you cannot feel pain, heat, or cold. General instructions ??? Take iaru-fxb-hbaclbm and prescription medicines only as told by your health care provider. ??? If you were prescribed antibiotics, take or apply them as told by your health care provider. Donot stop using the antibiotic even if you start to feel better. ??? Check your irritated area every day for signs of infection. Check for: ??? More redness, swelling, or pain. ??? Fluid or blood. ??? Warmth. ??? Pus or a bad smell. ??? Do not shave irritated skin. ??? Keep all follow-up visits. Your health care provider will check if the treatments are helping. Contact a health care provider if: ??? You have a fever. ??? You have any signs of infection. ??? Red streaks are spreading from the affected area. This information is not intended to replace advice given to you by your health care provider. Make sure you discuss any questions you have with your health care provider. Document Revised: 08/09/2022 Document Reviewed: 08/09/2022 [employer] Patient Education ?? 2024 [employer]. Follow Up Care 10/18/2024 03:57:10 With:Follow up with primary care provider Address:Unknown When:3 to 5 days Physician Emergency department Note * Mauricio Limon MD: PERFORM Event Display: ED Note Physician Authored Date: [id number] MISHA [place] :1980 Age:44 years Sex:Female Registration Date:10/18/2024 Primary Care Physician: Lyly Fiore NP Basic Information Time Seen: Mauricio Limon MD / 10/18/2024 04:08 History Of Present Illness: This patient 44 years old female??complaining of suprapubic folliculitis area for 2 to 3 weeks Denies any fever. ??Has normal urination.. Denies any other complaint. Review of Systems: Negative Physical Exam General: [Alert and oriented, well nourished, no [...] dry and pink, no rashes or lesions]. Coming to the genital area with the attendance of nurse. She has small area of folliculitis??suprapubic area.?? No abscess no drainage Neurologic: [Awake, alert and oriented X4, CN I-XII intact]. Psychiatric: [Cooperative, appropriate mood and affect]. Medical Decision Making: Patient was discharged home. ??Prescribed course of Keflex and??Bactroban ointment. ??Instructed tofollow-up in the clinic within 3 to 5 days. Return to the hospital for worsening symptoms Procedure No Qualifying Data Assessment/Plan Folliculitis??L73.9 Orders: Keflex 500 mg oral capsule, 500 mg = 1 cap, Oral, every 8 hr, X 7 days, # 21 cap, 0 Refill(s), 10/25/24 4:18:00 CDT, Pharmacy: [facility] #[id number], 157.48, cm, 10/02/24 4:31:00 CDT, Height, 81.65, kg,10/02/24 4:44:00 CDT, Weight Dosing, (Ordered) mupirocin 2% topical cream, 1 sanjiv, Topical, Daily, X 10 days, # 15 g, 0 Refill(s), 10/28/24 4:18:00CDT, Pharmacy: [facility]/pharmacy #[id number], 157.48, cm, 10/02/24 4:31:00 CDT, Height, 81.65, kg, 10/02/24 4:44:00 CDT, Weight Dosing, (Ordered) Discharge Patient, 10/18/24 4:19:00 CDT, (Ordered) Patient Discharge Condition Stable condition Discharge Disposition Discharge home Patient Education Folliculitis Follow Up With When Contact Information Follow up with primary care provider Within 3 to 5 days Additional Instructions: Medication Reconciliation New Prescription cephalexin (Keflex 500 mg oral capsule)1 Capsules Oral (given by mouth) every 8 hours for 7 Days. Refills: 0. ?? mupirocin topical (mupirocin 2% topical cream)1 Application Topical (on the skin) every day for 10 Days. Refills: 0. ?? Unchanged ARIPiprazole (ARIPiprazole 2 mg oral tablet)1 tab Oral (given by mouth) every day. Refills: 0. ?? azaTHIOprine (azaTHIOprine 50 mg oral tablet)1 tab Oral (given by mouth) every day for 30 Days. Refills: 0. ?? butalbital/acetaminophen/caffeine (butalbital/acetaminophen/caffeine 50 mg-325 mg-40 mg oral tablet)1 tab Oral (given by mouth) every day for 30 Days. Refills: 0. ?? DULoxetine (DULoxetine 60 mg oral delayed release capsule)TAKE 1 CAPSULE BY MOUTH EVERY DAY. Refills: 1. ?? Durable Medical Equipment for Prescription (Tall CAM boot)tall CAM boot. Refills: 0. ?? LORazepam (LORazepam 0.5 mg oral tablet)1 tab Oral (given by mouth) every day for 14 Days. TAKE ONETABLET BY MOUTH DAILY NEEDED FOR ANXIETY. Refills: 0. ?? metoprolol (Metoprolol Succinate ER 100 mg oral tablet, extended release)1 tab Oral (given by mouth) 2 times a day. Refills: 1. ?? pantoprazole (pantoprazole 40 mg oral delayed release tablet)1 tab Oral (given by mouth) 2 times a day. Refills: 0. ?? predniSONE (predniSONE 5 mg oral tablet)1 tab Oral (given by mouth) every day. with food or milk. Refills: 0. ?? tacrolimus (Envarsus XR 1 mg oral tablet, extended release) ?? venlafaxine (venlafaxine 37.5 mg oral capsule, extended release)1 Capsules Oral (given by mouth) every day. Refills: 0. Problem List/Past Medical History Ongoing Acne Anxiety Breast lump on left side at 3 o'clock position Bursitis of left foot Calcaneal bursitis Cervicalgia Chronic back pain Chronic neck pain Chronic pain Chronic pain Chronic paronychia of finger Congenital biliary atresia Constipation Degenerative disc disease, cervical Difficulty walking Edema Equinus contracture of ankle Equinus contracture of left ankle Gout Headache, chronic migraine without aura, intractable Heart murmur History of fall History of kidney transplant History of liver transplant Idiopathic thrombocytopenic purpura Migraine headache Numbness and tingling of right arm Obesity Pain in toes of both feet Pain of left heel Pain of right scapula Pain, joint, multiple sites Plantar fasciitis of left foot Plantar fasciitis, bilateral PUD (peptic ulcer disease) Pulmonary nodules Right knee pain Right shoulder pain Rupture of plantar fascia of left foot Squamous cell carcinoma in situ Tachycardia Thrombocytopenia [...] Family History Cancer: Mother. Electronically Signed on 10/18/2024 04:21 CDT Mauricio Limon MD Patient Care team information Care Team Personnel Name: Jessee Jones PORTAINER OPERATOR Position: Physician Member Role: Nurse Practitioner Address: [address] [place] [address], [facility] [address] Telecom: Name: Latoya Marquez PORTAINER OPERATOR Position: Physician Member Role: Nurse Practitioner Address: [address] [place] [address] Telecom: Name: Leonila Gonzalez PORTAINER OPERATOR Position: Physician Member Role: Nurse Practitioner Address: [address] [place] [address] Telecom: Name: Beth Brandt PORTAINER OPERATOR Position: Physician Member Role: Nurse Practitioner Address: [address] [place] [address] Telecom: Name: Pillo Moe PORTAINER OPERATOR Position: Physician Member Role: Nurse Practitioner Address: [address] [place] [address], [address] [facility] Telecom: Name: Lyly Fiore PORTAINER OPERATOR Position: Physician Member Role: Primary Care Physician Address: [address] [place] [address] Telecom: Care Team Related Persons Name: STACIA JONES Name: NONE, REFUSED Name: ROBYN JAMA Name: NAIF CHOI Name: MADY CHEN Name: MADY CHEN Insurance Providers Guarantor name: MISHA [place] Health Plan Information #: 1 Payer: [place] Payer Identifier: [id number] Member Number: [id number] Group Number: [id number] Subscriber Identifier: [id number] Relationship to Subscriber: self Coverage Type: MEDICAID Coverage Verification Date: 24 Telecom: Address: [address] Health Plan Information #: 2 Payer: [employer] Payer Identifier: [id number] Member Number: [id number] Group Number: [id number] Subscriber Identifier: [id number] Relationship to Subscriber: self Coverage Type: PRIVATE HEALTH INSURANCE Coverage Verification Date: MAGGIE Telecom: Address: [id number] [place] [address]
--- OUTSIDE RECORDS SUMMARY | 2024-10-19 22:10 | XMS_ITS | Encounter Summary ---
Author Organization [facility] Address [address] [facility] [place] [address] Care Team Providers Care Spring Former Hand Name Role Phone Hermes Ramirez MD Primary Care Provider Reason for Visit * Reason Comments Refill Request Encounter Details Date Type Department Care Team ([facility] st Contact Info) Description 01/10/2023 Refill [facility] [address] [facility] [address] [place] [address] Allen Manzano, PAMoisésC [address] [facility] [address] [place] [address] Refill Request Social History Tobacco [...] Currently or in the past 3 m [facility], have you worried your food would [...] on file Legal Sex Female 1:03 PM 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
--- OUTSIDE RECORDS SUMMARY | 2024-10-19 22:10 | XMS_ITS | Encounter Summary ---
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
--- OUTSIDE RECORDS SUMMARY | 2024-10-19 22:10 | XMS_ITS | Encounter Summary ---
Author Organization [facility] Address [address] [place] [address] Care Team Providers Care Corporate Responsibility Officer Name Role Phone Ashley ZUNIGA MD, Hermes Perez Primary Care Provid er Lyly Fiore NP Primary Care Provider [phone] Encounter Details Date Type Department Care Team (Late st Contact Info) Description 08/22/2018 Abstract [facility] [address] [place] [id number] Social History Tobacco Use Types Packs/Day Years Used Date Smoking Tobacco: Every Day Cigarettes 0.5 15 Smokeless Tobacco: Never Alcohol Use Standard Drinks/Week Comments No 0 (1 standard drink = 0.6 oz pur e alcohol) Comments No Sex and Gender Information Value Date Recorded Sex Assigned at Female 04/05/2024 4:26 PM INTERNAL CONTROL ANALYST Legal Sex Female 9:15 PM INTERNAL CONTROL ANALYST Gender Identity Not on file Sexual Orientation Not on file documented as of this encounter Plan of Treatment Not on file documented as of this encounter Visit Diagnoses Not on filedocumented in this encounter Additional Health Concerns Infection Onset Date Last Indicated Resolved Time COVID-19 Rule Out 03/30/2020 03/30/2020 03/30/2020 9:29 PM INTERNAL CONTROL ANALYST COVID-19 Rule Out 03/30/2020 03/30/2020 03/31/2020 12:28 PM INTERNAL CONTROL ANALYST COVID-19 Rule Out 02/16/2024 02/16/2024 02/16/2024 9:16 PM INTERNAL CONTROL ANALYST Rhinovirus 02/16/2024 02/16/2024 02/26/2024 12:3 2 AM INTERNAL CONTROL ANALYST COVID-19 Rule Out 08/26/2024 08/26/2024 08/26/2024 11:07 PM CDT Respiratory Rule Out 08/26/2024 08/26/2024 025 11:06 PM CDT documented as of this encounter Care Teams Corporate Responsibility Officer Relationship Specialty Start Date End Date Hermes Ramirez III, MD [address] [facility] [address] [place] [address] PCP - General FAMILY PRACTICE 06/20/17 04/13/24 Lyly Fiore NP [address] [place] [address] PCP - General NURSE PRACTITIONER 04/14/24 documented as of this encounter
--- OUTSIDE RECORDS SUMMARY | 2024-10-19 22:10 | XMS_ITS | Encounter Summary ---
Author Organization [facility] [place] [place] Address [address] [place] [address] Care Team Providers Care Lottery Clerk Name Role Phone Hermes Ramirez MD Primary Care Provider Encounter Details Date Type Department Care Team (Late st Contact Info) Description 07/24/2024 Lab Requisition [facility] [address] [address] Transplant-Liver, [place] [address] [address] [phone] [place] [address] Social History Tobacco Use Types Packs/Day Years [...] in the past 3 m [facility], have you worried your food would [...] on file Legal Sex Female 1:03 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 07/26/2024 4:32 PM CDT [facility] Reference 07/26/2024 4:32 PM CDT [facility] Tissue TISSUE SPECIMEN / Unknown 11/17/2023 07/24/2024 4:[address] [facility] Transplant-Liver LAB PATHOLOGY CYTOLOGY ORDERABLE Final Result Performing Organization Address City/[facility] Co de Phone Number [facility] [address] [place] [address] * AP Block Slide Request: (11/17/2023) AP Request The following 10 slides have been sent to [facility]. 07/26/2024 4:34 PM CDT [facility] Reference 07/26/2024 4:34 PM CDT [facility] Tissue TISSUE SPECIMEN / Unknown 11/17/2023 07/24/2024 4:[address] [facility] Transplant-Liver LAB PATHOLOGY CYTOLOGY ORDERABLE Final Result Performing Organization Address City/[facility] Co de Phone Number [facility] [address] [place] [address] documented in this encounter Visit Diagnoses Not on filedocumented in this encounter Additional Health Concerns Assessment Noted Time PHQ-9 Depression Total Score: 6 12/08/19 22 3:08 PM CDT PHQ-2 Depression Total Score: 0 06/23/19 23 10:20 AM CDT documented as of this encounter Care Teams Lottery Clerk Relationship Specialty Start Date End Date Hermes Ramirez MD [address] [place] [id number] PCP - General 05/28/20 documented as of this encounter
--- OUTSIDE RECORDS SUMMARY | 2024-10-19 22:10 | XMS_ITS | Encounter Summary ---
Author Organization [facility] Address [address] [facility] [place] [address] Care Team Providers Care Box Packer Name Role Phone Hermes Ramirez MD Primary Care Provider Reason for Visit * Reason Onset Date Comments Refill Request 06/01/2023 Encounter Details Date Type Department Care Team (Late st Contact Info) Description 06/01/2023 Refill [facility] [address] [address] Marion Pedroza MD [address] [place] [address] Refill Request Social History Tobacco [...] or in the past 3 m [facility], have you worried your food would run [...] on file 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
--- OUTSIDE RECORDS SUMMARY | 2024-10-19 22:10 | XMS_ITS | Continuity of Care Document ---
Author Organization [facility] Address [address] [place] [address] Phone Care Team Providers Care Technical Implementation Lead Name Role Phone Santana Timmons MD Unavailable Unavailable Procedures Procedure Date Subsequent Hospital Care Initial Inpatient Consult Advance Directives Directive Yes / No Effective Date File Name No Information Encounters Encounter Description Practice Location Reason(s) For Visit Diagnoses Date Provider Providers Copied on Encounter Subsequent Hospital Care [facility], [address] [place] [address], [id number], tel:[phone] [facility] No Information 1 Shanelle Dillon. [address] [place] [address], [id number], [place]. tel:[phone] Referring Provider: Hermes Ramirez , [address] [place] [address], [id number]. tel:[phone] Initial Inpatient Consult [facility], [address] [place] [address], [id number], tel:[phone] [facility] No Information Shanelle Dillon. [address] [place] [address], [id number], . tel:[phone] Referring Provider: Hermes Ramirez [address], [address]. tel:[phone] Family History Family Member Type Diagnosis Age At Onset No Information Payers Payer name Insurance type Covered democrat ID Authoriza tiyoan(s) [facility] [id number] Social History Type Description Quantity Date Captured Comments Sex Female Smoking Status No Information Chief Complaint And Reason For Visit No Information History Of Present Illness Encounter Date Complaint History Of Prese nt Illness No Information Instructions Date Instruction Additional Infor mation No Information Assessments Type Assessment Date No Information
--- OUTSIDE RECORDS SUMMARY | 2024-10-19 22:10 | XMS_ITS | Encounter Summary ---
Author Organization [facility] Address [address] [place] [address] Care Team Providers Care Brand Protection Manager Name Role Phone Ashley ZUNIGA MD, Hermes Perez Primary Care Provid er Lyly Fiore NP Primary Care Provider [phone] Encounter Details Date Type Department Care Team (Late st Contact Info) Description 08/25/2018 Abstract [facility] CONVERSION [address] [place] [address] , Generic Conversion, Social History Tobacco Use Types Packs/Day Years Used Date Smoking Tobacco: Every Day Cigarettes 0.5 15 Smokeless Tobacco: Never Alcohol Use Standard Drinks/Week Comments No 0 (1 standard drink = 0.6 oz pur e alcohol) Comments No Sex and Gender Information Value Date Recorded Sex Assigned at Female 04/05/2024 4:26 PM DIGITAL PHOTO PRINTER Legal Sex Female 9:15 PM DIGITAL PHOTO PRINTER Gender Identity Not on file Sexual Orientation Not on file documented as of this encounter Plan of Treatment Not on file documented as of this encounter Visit Diagnoses Not on filedocumented in this encounter Additional Health Concerns Infection Onset Date Last Indicated Resolved Time COVID-19 Rule Out 03/30/2020 03/30/2020 03/30/2020 9:29 PM DIGITAL PHOTO PRINTER COVID-19 Rule Out 03/30/2020 03/30/2020 03/31/2020 12:28 PM DIGITAL PHOTO PRINTER COVID-19 Rule Out 02/16/2024 02/16/2024 02/16/2024 9:16 PM DIGITAL PHOTO PRINTER Rhinovirus 02/16/2024 02/16/2024 02/26/2024 12:3 2 AM DIGITAL PHOTO PRINTER COVID-19 Rule Out 08/26/2024 08/26/2024 08/26/2024 11:07 PM CDT Respiratory Rule Out 08/26/2024 08/26/2024 025 11:06 PM CDT documented as of this encounter Care Teams Brand Protection Manager Relationship Specialty Start Date End Date Hermes Ramirez III, MD [address] [facility] [address] [place] [address] PCP - General FAMILY PRACTICE 06/20/17 04/13/24 Lyly Fiore NP [address] [place] [address] PCP - General NURSE PRACTITIONER 04/14/24 documented as of this encounter
--- OUTSIDE RECORDS SUMMARY | 2024-10-19 22:10 | XMS_ITS | Encounter Summary ---
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 No / Unsure 07/13/2022 3:03 PM CDT documented as of this encounter Progress Notes * Hollie Eugene RN - 07/16/2022 6:43 PM CDT Patient called the clinical documentation manager answering service. Per patient she is having [...] documented as of this encounter Care Teams Scratcher Relationship Specialty Start Date End Date Hermes Ramirez MD [address] [place] [address] PCP - General 05/28/20 documented as of this encounter
--- OUTSIDE RECORDS SUMMARY | 2024-10-19 22:10 | XMS_ITS | Encounter Summary ---
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
--- OUTSIDE RECORDS SUMMARY | 2024-10-19 22:10 | XMS_ITS | Referral Summary ---
Author Organization [facility] Address [address] [place] [address] Care Team Providers Care Assistant Maintenance Manager Name Role Phone Beatriz Lee MD Unavailable +- [phone] Lyly Fiore SPOT CLEANER Primary Care Provider Taylor Kitchen RN Unavailable Unav ailable Encounters Date Type Department Care Team Description 09/26/2024 Telephone [facility] [address] [facility] Advanced Medicine [address] [place] [address] Igor Graham MD Post-Op Call 09/25/2024 8:48 AM CDT - 09/25/2024 11:59 PM CDT Hospital Encounter [facility] [address] [place] [address] Advanced Medicine [address] [place] [address] Igor Graham MD Lumbar disc disease with radiculopathy (Primary Dx); Lumbar spondylosis Discharge Disposition: Discharge to home or self care 09/19/2024 Telephone [facility] [address] [facility] Advanced Medicine [address] [place] [address] Igor Graham MD [facility] Preprocedure 09/09/2024 SHOP/CHAP Initial Eligibility Review [facility] OP CASE MANAGEMENT [address] [place] [address] Shireen Griffin RN 08/31/2024 11:48 PM CDT - 09/06/2024 4:45 PM CDT Hospital Encounter [facility] [address] [place] [address] Elisha Avila MD Freilich, MD Vicente Aguirre, Britta Alarcon MD Abdominal pain (Primary Dx); Liver transplant failure and rejection (HCC); Rhinovirus infection Discharge Disposition: Discharge to home or self care 08/27/2024 Telephone [facility] [address] [facility] Advanced [facility] [address] [place] [address] Igor Graham MD Pre Procedure 08/15/2024 Results Follow-Up [facility] Transplant Liver [address] [place] [address] [address] [id number] [place] [address] Taylor Kitchen RN Surgical pathology 08/15/2024 10:30 AM CDT Clinical Support [place] [id number] [facility] Advanced [facility] 1st [place] [address] Brielle Carrillo, PhD 08/14/2024 12:21 PM CDT - 08/14/2024 11:59 PM CDT Hospital Encounter [facility] Advanced Medicine [address] [facility] [address] [place] [address] Igor Graham MD Lumbar spondylosis (Primary Dx); Lumbar disc disease with radiculopathy Discharge Disposition: Discharge to home or self care 08/02/2024 Orders Only [facility] [address] [place] [address] Beatriz Lee MD History of liver transplant (HCC); History of kidney transplant 08/01/2024 Telephone [facility] Transplant Liver [address] [facility] [address] [id number] [place] [address] Misty Vail RN 07/29/2024 Telephone [facility] Trans[facility] Liver [address] [facility] [address] 01-00-90 [place] [address] Lorena Turner 07/26/2024 2:55 PM CDT - 07/26/2024 2:56 PM CDT Emergency [facility] Emergency Department 1 [place] [address] Discharge Disposition: Left without being seen 07/24/2024 Telephone [facility] Transplant Liver [address] [facility] [address] Mailstop [id number] [place] [address] Lorena Turner 07/24/2024 9:45 AM CDT - 07/24/2024 11:59 PM CDT Hospital Encounter [facility] [address] [place] [address] Jessee Morton MD Lumbar spine pain; Adolescent idiopathic scoliosis of thoracic region Discharge Disposition: Discharge to home or self care 07/24/2024 10:00 AM CDT Office Visit [facility] [address] [facility] Advanced Medicine 6th [place] [address] [place] [address] Jessee Morton MD Lumbar spine pain (Primary Dx); Adolescent idiopathic scoliosis of thoracic region; Chronic bilateral low back pain without sciatica 07/22/2024 Telephone [facility] Transplant Liver [address] [place] [address] 340 Mailstop 06-18-590 [place] [address] Dafne Dukes RN 07/19/2024 Telephone [facility] Transplant Liver [address] [facility] [address] [id number] [place] [address] Karmen Garsia RN After Hours; Abdominal Pain from Last 3 Months Allergies Active Allergy [...] different from the original. Lab: [facility]. . . Pharmacy: [place], [place] Patient enrolled in [employer] assistance program [...] with baseline creatinine ~2. Previously followed at [facility], but has she has been wanting to transfer care to [place] but has not been able to schedule an appointment. She follows with [facility] Hep[facility]ology. Per Liver Transplant office [...] with baseline creatinine ~2. Previously followed at [facility], but has she has been wanting to transfer care to [place] but has not been able to schedule an appointment. She follows with [facility]ology. Per Liver Transplant office [...] with baseline creatinine ~2. Previously followed at [facility], but has she has been wanting to transfer care to [place] but has not been able to schedule an appointment. She follows with [facility]ology. Per Liver Transplant office [...] with baseline creatinine ~2. Previously followed at [facility], but has she has been wanting to transfer care to [place] but has not been able to schedule an appointment. She follows with [facility]ology. Per Liver Transplant office [...] with baseline creatinine ~2. Previously followed at [facility], but has she has been wanting to transfer care to [place] but has not been able to schedule an appointment. She follows with [facility]. Per Liver Transplant office [...] with baseline creatinine ~2. Previously followed at [facility], but has she has been wanting to transfer care to [place] but has not been able to schedule an appointment. She follows with [facility]. Per Liver Transplant office [...] with baseline creatinine ~2. Previously followed at [facility], but has she has been wanting to transfer care to [place] but has not been able to schedule an appointment. She follows with [facility]. Per Liver Transplant office [...] with baseline creatinine ~2. Previously followed at [facility], but has she has been wanting to transfer care to [place] but has not been able to schedule an appointment. She follows with [facility]. Per Liver Transplant office [...] with baseline creatinine ~2. Previously followed at [facility], but has she has been wanting to transfer care to [place] but has not been able to schedule an appointment. She follows with [facility]. Per Liver Transplant office [...] with baseline creatinine ~2. Previously followed at [facility], but has she has been wanting to transfer care to [place] but has not been able to schedule an appointment. She follows with [facility]. Per Liver Transplant office [...] with baseline creatinine ~2. Previously followed at [facility], but has she has been wanting to transfer care to [place] but has not been able to schedule an appointment. She follows with [facility]. Per Liver Transplant office [...] we would not be able to prescribe equipment operator intermodal yard opioids on discharge. Discussed importance of outpatient [...] we would not be able to prescribe equipment operator intermodal yard opioids on discharge. Discussed importance of outpatient [...] we would not be able to prescribe equipment operator intermodal yard opioids on discharge. Discussed importance of outpatient [...] with baseline creatinine ~2. Previously followed at [facility], but has she has been wanting to transfer care to [place] but has not been able to schedule an appointment. She follows with [facility]. Per Liver Transplant office [...] with baseline creatinine ~2. Previously followed at [facility], but has she has been wanting to transfer care to [place] but has not been able to schedule an appointment. She follows with [facility]. Per Liver Transplant office [...] with baseline creatinine ~2. Previously followed at [facility], but has she has been wanting to transfer care to [place] but has not been able to schedule an appointment. She follows with [facility]. Per Liver Transplant office [...] with baseline creatinine ~2. Previously followed at [facility], but has she has been wanting to transfer care to [place] but has not been able to schedule an appointment. She follows with [facility]. Per Liver Transplant office [...] with baseline creatinine ~2. Previously followed at [facility], but has she has been wanting to transfer care to [place] but has not been able to schedule an appointment. She follows with [facility]. Per Liver Transplant office [...] with baseline creatinine ~2. Previously followed at [facility], but has she has been wanting to transfer care to [facility] but has not been able to schedule an appointment. She follows with [facility]. Per Liver Transplant office [...] Transplant starting process of assuming care from [facility], but in short term they recommend patient follow up with renal transplant at [facility]. - She is NOW actively enrolled in the [employer] free patient assistance program through mar 2025 - script needs to be sent to [facility] (sent). Hyperbilirubinemia 04/16/2020 Assessment & Plan (04/16/2020 5:01 AM TAX CONSULTANT): - T. Bili of 7 (last was [...] 07/25/2019 Assessment & Plan (04/16/2020 2:25 AM TAX CONSULTANT): See hyperbili problem. 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 We would need to call [facility] to identify a contracted center ([phone]). She lives close enough to [place] that would be the most likely city she could travel to. She also noted that she could always remarry an ex- as he has insurance that may be covered at [facility]. Appreciate note from nephrology and agree with restarting oral diuretics. Can continue tacrolimus at the current dose. MRI/MRCP completed and will review with radiology to identify if any role for PTC. Assessment & Plan (04/16/2020 2:26 AM TAX CONSULTANT): S/p liver tranplant in 1992 for biliary [...] meds Assessment & Plan (04/16/2020 5:01 AM TAX CONSULTANT): Unclear if progression of CKD vs acute [...] Cr of 1.8. She follows with local french teacher Dr. Mathew and thinks her baseline is 2.1. She was at 2.3 at [facility]. She took some diuretics at home and was given lasix at [facility] ED. --UA, urine lytes --get records from her french teacher to find out baseline --random tacro [...] In the past 12 months has [employer], gas, oil, or water [employer] threatened to shut off services in your [...] often do you attend chur ch or temple services? Never 09/03/2024 Do you belong to any clubs o r organizations such as mandaen groups, unions, fraternal or athletic groups, or [...] were you homeless or living in a fpc (including now)? No 09/03/2024 Personal Safety Answer Date Recorded Have you ever been in or are you currently in a harmful physical or emotional relationship or is someone making you feel afraid or unsafe? Denies 09/02/2024 Comments No Sex and Gender Information Value Date Recorded Sex Assigned at Not on file Legal Sex Female 10:10 PM TAX CONSULTANT Gender Identity Not on file Sexual [...] 5:16 AM CDT DIFFERENTIAL AUTO Routine 09/02/2024 5:16 AM CDT TACROLIMUS LEVEL, TROUGH Timed 09/02/2024 5:16 AM CDT COMPREHENSIVE METABOLIC PANEL Routine 09/02/2024 5:16 AM CDT CBC WITH AUTO DIFFERENTIAL Routine 09/02/2024 5:16 AM CDT TROPONIN I HIGH-SENSITIVITY 2-HOUR Timed 09/01/2024 2:58 AM CDT ECG 12-LEAD Routine 09/01/2024 2:53 AM CDT XR CHEST PA LATERAL 2 VIEWS ED 09/01/2024 2:23 AM CDT BLOOD CULTURE Routine 09/01/2024 2:18 AM CDT RENAL TRANSPLANT W DOPPLERS ED 09/01/2024 1:35 [...] region HEPATITIS PANEL, ACUTE Routine 6:35 AM TAX CONSULTANT from Last 3 Months or Most Recently Relevant to Health Maintenance Results * Imaging Lumbar/Sacral Facet Medial Branch Block Bilateral ([id number]) (09/25/2024 9:47 AM CDT) Narrative [facility] - 09/25/2024 9:47 AM CDT The images [...] MD LAB BLOOD ORDERABLES Aniya l Result [facility] Department [place] [address] * Tacrolimus level trough (09/06/2024 9:48 AM CDT) Pathologist [facility] Tacrolimus trough 6.4 ng/mL Comment: Interpretive Data Testing performed by liquid chromatography-tandem mass spectrometry. Therapeutic concentrations vary depending on type of transplanted organ and time elapsed since transplant. Typical trough concentrations range from 5-15 ng/mL. This test was developed and its performance characteristics determined by the [facility] consistent with CLIA requirements. This test has not been cleared or approved by the US Food and Drug administration. Current interpretive data last reviewed 2019. Blood 09/06/2024 9:48 AM CDT 09/06/2024 10:15 AM CDT Lily Rico MD LAB BLOOD ORDERABLES Final Result [facility] Department [place] [address] * (ABNORMAL) Comprehensive metabolic panel (09/06/2024 9:48 AM CDT) [facility] Sodium 139 135 - 145 mmol/L Potassium, pl 4.1 3.3 - 4.9 mmol/L [facility] Comment:Hemolyzed; Potassium value may be falsely elevated by as much as 0.3-0.5 mmol/L. Suggest redraw and reanalysis. Chloride 102 97 - 110 mmol/L [facility] CO2 26 22 - 32 mmol/L [facility] Anion gap 11 2 - 15 mmol/L [facility] BUN 24 6 - 25 mg/dL [facility] Creatinine 2.04(H) 0.60 - 1.10 mg/dL [facility] Glucose 167 70 - 199 mg/dL [facility] Comment: Interpretive Data Fasting glucose >/= [...] Calcium 8.8 8.5 - 10.3 mg/dL [facility] Bilirubin, total 0.6 0.1 - 1.2 mg/dL [facility] Protein, pl 6.1(L) 6.5 - 8.5 g/dL [facility] Albumin 3.5 3.5 - 5.0 g/dL [facility] Alk phos 241(H) 40 - 130 Units/L [facility] ALT 17 7 - 45 Units/L [facility] AST 41 10 - 45 Units/L [facility] Comment:Hemolyzed; result ma y be falsely elevated Blood 09/06/2024 9:48 AM CDT 09/06/2024 10:15 AM CDT Britta Zhang MD LAB BLOOD ORDERABLES Aniya l Result [facility] Department [place] [address] * (ABNORMAL) eGFR (09/05/2024 10:47 AM CDT) [...] BLOOD ORDERABLES Aniya andrez Result [facility] Department [place] [address] * Differential, auto (09/05/2024 10:47 AM CDT) Neutrophil abs 3.84 1.50 - 6.50 K/cumm Imm gran abs 0.03 0.00 - 0.10 K/cumm [facility] Lymphocyte abs 1.33 0.80 - 3.30 K/cumm [facility] Monocyte abs 0.30 0.20 - 0.80 K/cumm [facility] Eosinophil abs 0.15 0.00 - 0.50 K/cumm [facility] Basophil abs 0.01 0.00 - 0.10 K/cumm [facility] Neutrophil pct 67.8 % [facility] Comment: Interpretive Data Percent cell count reference ranges are not reported, since discordance with absolute values may lead to misinterpretation of CBC data. Current Interpretive Data was last revised on 2017. Imm gran pct 0.5 % [facility] Comment: Interpretive Data Percent cell count reference ranges are not reported, since discordance with absolute values may lead to misinterpretation of CBC data. Current Interpretive Data was last revised on 2017. Lymphocyte pct 23.5 % [facility] Comment: Interpretive Data Percent cell count reference ranges are not reported, since discordance with absolute values may lead to misinterpretation of CBC data. Current Interpretive Data was last revised on 2017. Monocyte pct 5.3 % [facility] Comment: Interpretive Data Percent cell count reference ranges are not reported, since discordance with absolute values may lead to misinterpretation of CBC data. Current Interpretive Data was last revised on 2017. Eosinophil pct 2.7 % [facility] Comment: Interpretive Data Percent cell count reference ranges are not reported, since discordance with absolute values may lead to misinterpretation of CBC data. Current Interpretive Data was last revised on 2017. Basophil pct 0.2 % [facility] Comment: Interpretive Data Percent cell count reference ranges are not reported, since discordance with absolute values may lead to misinterpretation of CBC data. Current Interpretive Data was last revised on 2017. Blood 09/05/2024 10:4 7 AM CDT 09/05/2024 11:03 AM CDT Britta Zhang MD LAB BLOOD ORDERABLES Aniya l Result Performing Organization Address [facility] de Phone Number [facility] Department [place] [address] * Tacrolimus level trough (09/05/2024 10:47 AM CDT) Tacrolimus trough 6.2 ng/mL Comment: Interpretive Data Testing performed by liquid chromatography-tandem mass spectrometry. Therapeutic concentrations vary depending on type of transplanted organ and time elapsed since transplant. Typical trough concentrations range from 5-15 ng/mL. This test was developed and its performance characteristics determined by the [facility] consistent with CLIA requirements. This test has not been cleared or approved by the US Food and Drug administration. Current interpretive data last reviewed 2019. Blood 09/05/2024 10:4 7 AM CDT 09/05/2024 11:04 AM CDT Narrative [facility] - 09/05/2024 1:14 PM CDT Draw exactly 12 HOURS after last dose of tacrolimus was given and just BEFORE giving next dose Britta Zhang MD LAB BLOOD ORDERABLES Aniya l Result Performing Organization Address [facility] Co de Phone Number [facility] Department [place] [address] * (ABNORMAL) CBC with auto differential (09/05/2024 10:47 AM CDT) [facility] WBC 5.66 3.80 - 9.90 K/cumm Hgb 11.1(L) 11.9 - 15.5 g/dL [facility] Hct 31.6(L) 35.6 - 45.5 % [facility] Plt 115(L) 150 - 400 K/cumm [facility] MPV 11.4 9.1 - 12.[address] [facility] RBC 2.81(L) 3.90 - 5.20 M/cumm [facility] MCV 112.5(H) 81.3 - 96.[address] [facility] MCH 39.5(H) 27.1 - 33.[address] [facility] MCHC 35.1 32.3 - 35.7 g/dL [facility] RDW CV 14.2 11.1 - 14.9 % [facility] RDW SD 59.0(H) 35.7 - 48.[address] [facility] NRBC abs 0.00 0.00 - 0.01 K/cumm [facility] Blood 09/05/2024 10:4 7 AM CDT 09/05/2024 11:03 AM CDT Britta Zhang MD LAB BLOOD ORDERABLES Aniya maguire Result [facility] Department [place] [address] * (ABNORMAL) Comprehensive metabolic panel (09/05/2024 10:47 AM CDT) [facility] Sodium 143 135 - 145 mmol/L Potassium, pl 4.2 3.3 - 4.9 mmol/L [facility] Chloride 102 97 - 110 mmol/L [facility] CO2 28 22 - 32 mmol/L [facility] Anion gap 13 2 - 15 mmol/L [facility] BUN 28(H) 6 - 25 mg/dL [facility] Creatinine 2.49(H) 0.60 - 1.10 mg/dL [facility] Glucose 127 70 - 199 mg/dL [facility] Comment: Interpretive Data Fasting glucose >/= [...] 2022. Calcium 9.0 8.5 - 10.3 mg/dL [facility] Bilirubin, total 0.7 0.1 - 1.2 mg/dL [facility] Protein, pl 6.4(L) 6.5 - 8.5 g/dL [facility] Albumin 3.7 3.5 - 5.0 g/dL [facility] Alk phos 257(H) 40 - 130 Units/L [facility] ALT 18 7 - 45 Units/L [facility] AST 27 10 - 45 Units/L [facility] Blood 09/05/2024 10:4 7 AM CDT 09/05/2024 11:03 AM CDT Britta Zhang MD LAB BLOOD ORDERABLES Aniya maguire Result [facility] Department [place] [address] * (ABNORMAL) eGFR (09/04/2024 5:03 AM CDT) [...] BLOOD ORDERABLES Aniya maguire Result [facility] Department [place] [address] * Differential, auto (09/04/2024 5:03 AM CDT) Neutrophil abs 2.68 1.50 - 6.50 K/cumm Imm gran abs 0.01 0.00 - 0.10 K/cumm [facility] Lymphocyte abs 1.03 0.80 - 3.30 K/cumm [facility] Monocyte abs 0.23 0.20 - 0.80 K/cumm [facility] Eosinophil abs 0.09 0.00 - 0.50 K/cumm [facility] Basophil abs 0.00 0.00 - 0.10 K/cumm [facility] Neutrophil pct 66.4 % [facility] Comment: Interpretive Data Percent cell count reference ranges are not reported, since discordance with absolute values may lead to misinterpretation of CBC data. Current Interpretive Data was last revised on 2017. Imm gran pct 0.2 % [facility] Comment: Interpretive Data Percent cell count reference ranges are not reported, since discordance with absolute values may lead to misinterpretation of CBC data. Current Interpretive Data was last revised on 2017. Lymphocyte pct 25.5 % [facility] Comment: Interpretive Data Percent cell count reference ranges are not reported, since discordance with absolute values may lead to misinterpretation of CBC data. Current Interpretive Data was last revised on 2017. Monocyte pct 5.7 % [facility] Comment: Interpretive Data Percent cell count reference ranges are not reported, since discordance with absolute values may lead to misinterpretation of CBC data. Current Interpretive Data was last revised on 2017. Eosinophil pct 2.2 % [facility] Comment: Interpretive Data Percent cell count reference ranges are not reported, since discordance with absolute values may lead to misinterpretation of CBC data. Current Interpretive Data was last revised on 2017. Basophil pct 0.0 % [facility] Comment: Interpretive Data Percent cell count reference ranges are not reported, since discordance with absolute values may lead to misinterpretation of CBC data. Current Interpretive Data was last revised on 2017. Blood 09/04/2024 5:03 AM CDT 09/04/2024 5:10 AM CDT Britta Zhang MD LAB BLOOD ORDERABLES Aniya maguire Result [facility] Department [place] [address] * Tacrolimus level trough (09/04/2024 5:03 AM CDT) Tacrolimus trough 10.9 ng/mL Comment: Interpretive Data Testing performed by liquid chromatography-tandem mass spectrometry. Therapeutic concentrations vary depending on type of transplanted organ and time elapsed since transplant. Typical trough concentrations range from 5-15 ng/mL. This test was developed and its performance characteristics determined by the [facility] consistent with CLIA requirements. This test has not been cleared or approved by the [place] Food and Drug administration. Current interpretive data last reviewed 2019. Blood 09/04/2024 5:03 AM CDT 09/04/2024 5:10 AM CDT Narrative [facility] - 09/04/2024 7:32 AM CDT Draw exactly 12 HOURS after last dose of tacrolimus was given and just BEFORE giving next dose Britta Zhang MD LAB BLOOD ORDERABLES Aniya l Result [facility] Department [place] [address] * (ABNORMAL) CBC with auto differential (09/04/2024 5:03 AM CDT) [facility] WBC 4.04 3.80 - 9.90 K/cumm Hgb 11.8(L) 11.9 - 15.5 g/dL [facility] Hct 32.9(L) 35.6 - 45.5 % [facility] Plt 66(L) 150 - 400 K/cumm [facility] MPV 12.0 9.1 - 12.[address] [facility] RBC 2.96(L) 3.90 - 5.20 M/cumm [facility] MCV 111.1(H) 81.3 - 96.[address] [facility] MCH 39.9(H) 27.1 - 33.[address] [facility] MCHC 35.9(H) 32.3 - 35.7 g/dL [facility] RDW CV 14.0 11.1 - 14.9 % [facility] RDW SD 56.5(H) 35.7 - 48.[address] [facility] NRBC abs 0.00 0.00 - 0.01 K/cumm [facility] Blood 09/04/2024 5:03 AM CDT 09/04/2024 5:10 AM CDT us Britta Zhang MD LAB BLOOD ORDERABLES Aniya l Result [facility] Department [place] [address] * (ABNORMAL) Comprehensive metabolic panel (09/04/2024 5:03 AM CDT) Pathologist [facility] Sodium 137 135 - 145 mmol/L Potassium, pl 4.2 3.3 - 4.9 mmol/L [facility] Chloride 100 97 - 110 mmol/L [facility] CO2 26 22 - 32 mmol/L [facility] Anion gap 11 2 - 15 mmol/L [facility] BUN 30(H) 6 - 25 mg/dL [facility] Creatinine 2.87(H) 0.60 - 1.10 mg/dL [facility] Glucose 153 70 - 199 mg/dL [facility] Comment: Interpretive Data Fasting glucose >/= [...] Calcium 8.5 8.5 - 10.3 mg/dL [facility] Bilirubin, total 0.8 0.1 - 1.2 mg/dL [facility] Protein, pl 6.6 6.5 - 8.5 g/dL [facility] Albumin 3.5 3.5 - 5.0 g/dL [facility] Alk phos 240(H) 40 - 130 Units/L [facility] ALT 12 7 - 45 Units/L [facility] AST 31 10 - 45 Units/L [facility] Blood 09/04/2024 5:03 AM CDT 09/04/2024 5:10 AM CDT Britta Zhang MD LAB BLOOD ORDERABLES Aniya maguire Result [facility] Department [place] [address] * (ABNORMAL) eGFR (09/03/2024 5:21 AM CDT) [...] MD LAB BLOOD ORDERABLES Aniya maguire Result [facility] Department [place] [address] * Differential, auto (09/03/2024 5:21 AM CDT) Neutrophil abs 3.79 1.50 - 6.50 K/cumm Imm gran abs 0.03 0.00 - 0.10 K/cumm [facility] Lymphocyte abs 0.84 0.80 - 3.30 K/cumm [facility] Monocyte abs 0.25 0.20 - 0.80 K/cumm [facility] Eosinophil abs 0.05 0.00 - 0.50 K/cumm [facility] Basophil abs 0.00 0.00 - 0.10 K/cumm [facility] Neutrophil pct 76.5 % [facility] Comment: Interpretive Data Percent cell count reference ranges are not reported, since discordance with absolute values may lead to misinterpretation of CBC data. Current Interpretive Data was last revised on 2017. Imm gran pct 0.6 % [facility] Comment: Interpretive Data Percent cell count reference ranges are not reported, since discordance with absolute values may lead to misinterpretation of CBC data. Current Interpretive Data was last revised on 2017. Lymphocyte pct 16.9 % [facility] Comment: Interpretive Data Percent cell count reference ranges are not reported, since discordance with absolute values may lead to misinterpretation of CBC data. Current Interpretive Data was last revised on 2017. Monocyte pct 5.0 % [facility] Comment: Interpretive Data Percent cell count reference ranges are not reported, since discordance with absolute values may lead to misinterpretation of CBC data. Current Interpretive Data was last revised on 2017. Eosinophil pct 1.0 % [facility] Comment: Interpretive Data Percent cell count reference ranges are not reported, since discordance with absolute values may lead to misinterpretation of CBC data. Current Interpretive Data was last revised on 2017. Basophil pct 0.0 % [facility] Comment: Interpretive Data Percent cell count reference ranges are not reported, since discordance with absolute values may lead to misinterpretation of CBC data. Current Interpretive Data was last revised on 2017. Blood 09/03/2024 5:21 AM CDT 09/03/2024 5:31 AM CDT Britta Zhang MD LAB BLOOD ORDERABLES Aniya maguire Result [facility] Department [place] [address] * Tacrolimus level trough (09/03/2024 5:21 AM CDT) Tacrolimus trough 17.8 ng/mL Comment: Interpretive Data Testing performed by liquid chromatography-tandem mass spectrometry. Therapeutic concentrations vary depending on type of transplanted organ and time elapsed since transplant. Typical trough concentrations range from 5-15 ng/mL. This test was developed and its performance characteristics determined by the [facility] consistent with CLIA requirements. This test has not been cleared or approved by the US Food and Drug administration. Current interpretive data last reviewed 2019. Blood 09/03/2024 5:21 AM CDT 09/03/2024 5:31 AM CDT Narrative [facility] - 09/03/2024 9:19 AM CDT Draw exactly 12 HOURS after last dose of tacrolimus was given and just BEFORE giving next dose us Britta Zhang MD LAB BLOOD ORDERABLES Aniya andrez Result Performing Organization Address [facility] de Phone Number [facility] Department [place] [address] * (ABNORMAL) CBC with auto differential (09/03/2024 5:21 AM CDT) [facility] WBC 4.96 3.80 - 9.90 K/cumm Hgb 11.3(L) 11.9 - 15.5 g/dL [facility] Hct 30.7(L) 35.6 - 45.5 % [facility] Plt 83(L) 150 - 400 K/cumm [facility] MPV 11.0 9.1 - 12.[address] [facility] RBC 2.84(L) 3.90 - 5.20 M/cumm [facility] MCV 108.1(H) 81.3 - 96.[address] [facility] MCH 39.8(H) 27.1 - 33.[address] [facility] MCHC 36.8(H) 32.3 - 35.7 g/dL [facility] RDW CV 13.9 11.1 - 14.9 % [facility] RDW SD 54.4(H) 35.7 - 48.[address] [facility] NRBC abs 0.00 0.00 - 0.01 K/cumm [facility] Blood 09/03/2024 5:21 AM CDT 09/03/2024 5:31 AM CDT Britta Zhang MD LAB BLOOD ORDERABLES Aniya maguire Result Performing Organization Address [facility]/ZIP Co de Phone Number [facility] Department [place] [address] * (ABNORMAL) Comprehensive metabolic panel (09/03/2024 5:21 AM CDT) Sodium 138 135 - 145 mmol/L Potassium, pl 4.7 3.3 - 4.9 mmol/L [facility] Chloride 101 97 - 110 mmol/L [facility] CO2 29 22 - 32 mmol/L [facility] Anion gap 8 2 - 15 mmol/L [facility] BUN 29(H) 6 - 25 mg/dL [facility] Creatinine 2.92(H) 0.60 - 1.10 mg/dL [facility] Glucose 113 70 - 199 mg/dL [facility] Comment: Interpretive Data Fasting glucose >/= [...] 9.2 8.5 - 10.3 mg/dL [facility] Bilirubin, total 1.1 0.1 - 1.2 mg/dL [facility] Protein, pl 6.2(L) 6.5 - 8.5 g/dL [facility] Albumin 3.4(L) 3.5 - 5.0 g/dL [facility] Alk phos 233(H) 40 - 130 Units/L [facility] ALT 13 7 - 45 Units/L [facility] AST 22 10 - 45 Units/L [facility] Blood 09/03/2024 5:21 AM CDT 09/03/2024 5:31 AM CDT us Britta Zhang MD LAB BLOOD ORDERABLES Aniya maguire Result [facility] Department [place] [address] * BK virus PCR quantitative Blood (09/02/2024 12:21 PM CDT) BKV DNA result, pl Not Detected [facility] Comment: The quantifiable range of this assay is 21.5 IU/mL to 100,000,000 IU/mL (1.33 log IU/mL to 8.00 log IU/mL). Testing was performed by the JOHNNY 6800 BKV Quantatitive Test version 2.0 ([employer] Testing performed at [facility] Current Interpretive Data was last revised on 2021. Blood 09/02/2024 12:2 1 PM CDT 09/02/2024 12:52 PM CDT Result [facility] Britta Zhang MD LAB MICROBIOLOGY - GENERA L ORDERABLES Final Result [facility] Department [place] [address] [facility] * HLA Donor Specific Antibody Report [...] Antibody Screen (09/02/2024 12:21 PM CDT) Pathologist [facility] HLA Antibody Screen By Single Antigen Received Blood 09/02/2024 12:2 1 PM CDT 09/03/2024 10:59 AM CDT Britta Zhang MD LAB BLOOD ORDERABLES Aniya l Result Performing Organization Address City/[facility]/ZIP Co de Phone Number [facility] Department [place] [address] * Cytomegalovirus (CMV) DNA PCR, quantitative Blood (09/02/2024 12:21 PM CDT) CMV DNA Not Detected [facility] Comment: Interpretive Data: The quantifiable range of this assay is 34 IUnits/mL to 10,000,000 IUnits/mL (1.53 log IUnits/mL to 7.0 log IUnits/mL). Testing was performed by the JOHNNY 6800 CMV Test ([employer] Testing performed at [facility]. Current interpretive data was last revised on 2020. Blood 09/02/2024 12:2 1 PM CDT 09/02/2024 12:52 PM CDT Result [facility] Britta Zhang MD LAB MICROBIOLOGY - GENERA L ORDERABLES Final Result Performing Organization Address City/[facility] Co de Phone Number [facility] Department [place] [address] [facility] * (ABNORMAL) eGFR (09/02/2024 12:21 PM [...] BLOOD ORDERABLES Aniya maguire Result [facility] Department [place] [address] * Blood culture Blood (09/02/2024 12:21 PM CDT) Report Final Report: No growth Blood 09/02/2024 12:2 1 PM CDT 09/02/2024 1:40 PM CDT Narrative [facility] - 09/06/2024 4:00 PM CDT From [...] characteristics have been verified by the [facility]. For questions about this culture, contact the Microbiology Laboratory at [phone]. Interpretive data was last revised on 24. Britta Zhang MD LAB MICROBIOLOGY - GENERA L ORDERABLES Final Result [facility] Department [place] [address] * Blood culture Blood (09/02/2024 12:21 PM CDT) Report Final Report: No growth Blood 09/02/2024 12:2 1 PM CDT 09/02/2024 1:40 PM CDT Narrative [facility] - 09/06/2024 4:00 PM CDT Collection->Peripheral [...] characteristics have been verified by the [facility]. For questions about this culture, contact the Microbiology Laboratory at [phone]. Interpretive data was last revised on 24. Britta Zhang MD LAB MICROBIOLOGY - GENERA L ORDERABLES Final Result Performing Organization Address City/[facility]/ZIP Co de Phone Number [facility] Department [place] [address] * (ABNORMAL) Renal function panel (09/02/2024 12:21 PM CDT) Pathologist [facility] Sodium 137 135 - 145 mmol/L Potassium, pl 3.9 3.3 - 4.9 mmol/L [facility] Chloride 97 97 - 110 mmol/L [facility] CO2 31 22 - 32 mmol/L [facility] Anion gap 9 2 - 15 mmol/L [facility] BUN 28(H) 6 - 25 mg/dL [facility] Creatinine 2.89(H) 0.60 - 1.10 mg/dL [facility] Glucose 162 70 - 199 mg/dL [facility] Comment: Interpretive Data Fasting glucose >/= [...] 9.7 8.5 - 10.3 mg/dL [facility] Phosphorus, pl 4.1 2.3 - 4.5 mg/dL [facility] Albumin 3.5 3.5 - 5.0 g/dL [facility] Blood 09/02/2024 12:2 1 PM CDT 09/02/2024 12:42 PM CDT Britta Zhang MD LAB BLOOD ORDERABLES Aniya maguire Result [facility] Department [place] [address] * (ABNORMAL) eGFR (09/02/2024 5:16 AM CDT) Pathologist [facility] eGFR 19(L) >=60 mL/min/1. 73 m2 Comment: [...] LAB BLOOD ORDERABLES Final Result [facility] Department [place] [address] * Differential, auto (09/02/2024 5:16 AM CDT) Neutrophil abs 3.97 1.50 - 6.50 K/cumm Imm gran abs 0.02 0.00 - 0.10 K/cumm [facility] Lymphocyte abs 1.10 0.80 - 3.30 K/cumm [facility] Monocyte abs 0.24 0.20 - 0.80 K/cumm [facility] Eosinophil abs 0.11 0.00 - 0.50 K/cumm [facility] Basophil abs 0.01 0.00 - 0.10 K/cumm [facility] Neutrophil pct 72.8 % [facility] Comment: Interpretive Data Percent cell count reference ranges are not reported, since discordance with absolute values may lead to misinterpretation of CBC data. Current Interpretive Data was last revised on 2017. Imm gran pct 0.4 % [facility] Comment: Interpretive Data Percent cell count reference ranges are not reported, since discordance with absolute values may lead to misinterpretation of CBC data. Current Interpretive Data was last revised on 2017. Lymphocyte pct 20.2 % [facility] Comment: Interpretive Data Percent cell count reference ranges are not reported, since discordance with absolute values may lead to misinterpretation of CBC data. Current Interpretive Data was last revised on 2017. Monocyte pct 4.4 % [facility] Comment: Interpretive Data Percent cell count reference ranges are not reported, since discordance with absolute values may lead to misinterpretation of CBC data. Current Interpretive Data was last revised on 2017. Eosinophil pct 2.0 % [facility] Comment: Interpretive Data Percent cell count reference ranges are not reported, since discordance with absolute values may lead to misinterpretation of CBC data. Current Interpretive Data was last revised on 2017. Basophil pct 0.2 % [facility] Comment: Interpretive Data Percent cell count reference ranges are not reported, since discordance with absolute values may lead to misinterpretation of CBC data. Current Interpretive Data was last revised on 2017. Blood 09/02/2024 5:16 AM CDT 09/02/2024 5:32 AM CDT us Bailee Valiente MD LAB BLOOD ORDERABLES Final Result [facility] Department [place] [address] * Tacrolimus level trough (09/02/2024 5:16 AM CDT) [facility] Signature Tacrolimus trough 17.0 ng/mL Comment: Interpretive Data Testing performed by liquid chromatography-tandem mass spectrometry. Therapeutic concentrations vary depending on type of transplanted organ and time elapsed since transplant. Typical trough concentrations range from 5-15 ng/mL. This test was developed and its performance characteristics determined by the [facility] consistent with CLIA requirements. This test has not been cleared or approved by the [place] Food and Drug administration. Current interpretive data last reviewed 2019. Blood 09/02/2024 5:16 AM CDT 09/02/2024 5:32 AM CDT us Britta Zhang MD LAB BLOOD ORDERABLES Aniya l Result [facility] Department [place] [address] * (ABNORMAL) CBC with auto differential (09/02/2024 5:16 AM CDT) WBC 5.45 3.80 - 9.90 K/cumm Hgb 11.7(L) 11.9 - 15.5 g/dL [facility] Hct 32.3(L) 35.6 - 45.5 % [facility] Plt 98(L) 150 - 400 K/cumm [facility] MPV 11.4 9.1 - 12.[address] [facility] RBC 2.95(L) 3.90 - 5.20 M/cumm [facility] MCV 109.5(H) 81.3 - 96.[address] [facility] MCH 39.7(H) 27.1 - 33.[address] [facility] MCHC 36.2(H) 32.3 - 35.7 g/dL [facility] RDW CV 13.9 11.1 - 14.9 % [facility] RDW SD 56.6(H) 35.7 - 48.[address] [facility] NRBC abs 0.00 0.00 - 0.01 K/cumm [facility] Blood 09/02/2024 5:16 AM CDT 09/02/2024 5:32 AM CDT us Bailee Valiente MD LAB BLOOD ORDERABLES Final Result [facility] Department [place] [address] * (ABNORMAL) Comprehensive metabolic panel (09/02/2024 5:16 AM CDT) Sodium 137 135 - 145 mmol/L Potassium, pl 4.1 3.3 - 4.9 mmol/L [facility] Chloride 98 97 - 110 mmol/L [facility] CO2 32 22 - 32 mmol/L [facility] Anion gap 7 2 - 15 mmol/L [facility] BUN 29(H) 6 - 25 mg/dL [facility] Creatinine 3.05(H) 0.60 - 1.10 mg/dL [facility] Glucose 185 70 - 199 mg/dL [facility] Comment: Interpretive Data Fasting glucose >/= [...] 2022. Calcium 9.0 8.5 - 10.3 mg/dL [facility] Bilirubin, total 1.0 0.1 - 1.2 mg/dL [facility] Protein, pl 6.3(L) 6.5 - 8.5 g/dL [facility] Albumin 3.8 3.5 - 5.0 g/dL [facility] Alk phos 223(H) 40 - 130 Units/L [facility] ALT 11 7 - 45 Units/L [facility] AST 24 10 - 45 Units/L [facility] Blood 09/02/2024 5:16 AM CDT 09/02/2024 5:32 AM CDT us Bailee Valiente MD LAB BLOOD ORDERABLES Final Result [facility] Department [place] [address] * Troponin I high-sensitivity 2-hour (09/01/2024 2:58 AM CDT) Trop I hs 5 <=17 ng/L Comment: Interpretive Data For further hscTnI resources including the diagnostic algorithm and an aid in interpretation, copy and paste this link: [email or web address]://bjhlab.testcatalog.org/show/[email or web address] Current Interpretive Data last revised 2019. Trop I hs delta 0 ng/L [facility] Trop I hs interp Insignificant [facility] Blood 09/01/2024 2:58 AM CDT 09/01/2024 3:13 AM CDT us Diana Cassidy MD LAB BLOOD ORDERABLES Fi nal Result Performing Organization Address [facility] Co de Phone Number [facility] One [facility] Department [place] [address] * ECG 12-LEAD (09/01/2024 2:53 AM CDT) Narrative [facility] 09/01/2024 2:53 AM CDT Elisha Avila MD 09/01/2024 3:24 AM ECG 12 lead Date/Time: 09/01/2024 2:53 AM Performed by: Elisha Avila MD Authorized by: Diana Cassidy MD Diana Cassidy MD ECG ORDERABLES Final R esult Performing Organization Address [facility] Co de Phone Number [facility] * XR Chest PA Lateral [...] culture Blood (09/01/2024 2:18 AM CDT) Pathologist [facility] Direct Specimen Exam Molecular Analysis: Staphylococcus epidermidis (methicillin-resis tant) detected by johnny [facility] BCID-GP panel. Single positive culture may represent contamination. This test does not exclude the possibility of a mixed bacterial infection. Notification of: Staphylococcus epidermidis (methicillin-resis tant) called to and read back by: Flower Moser MD ([phone]) on 09/02/2024 03:01:57 by: Radu Helm MT Direct Specimen Exam Stain: Gram Positive Cocci in clusters Time to culture positivity (anaerobic media): 21.4 hours Notification of: Gram Positive Cocci in clusters called to and read back by: Flower Moser MD ([phone]) on 09/02/2024 01:01:22 by: Radu Helm MT [facility] Report Final Report: Staphylococcus epidermidis Single blood culture positive for this microorganism. Isolate is a possible contaminant. If a similar isolate is recovered from a second blood culture collected within 3 days of this culture, both will be evaluated and, if determined to be the same species, antimicrobial susceptibility testing will be performed. (.) [facility] Organism STAPHYLOCOCCUS EPIDERMIDIS [facility] Blood 09/01/2024 2:18 AM CDT 09/01/2024 2:43 AM CDT Narrative [facility] - 09/06/2024 12:48 PM CDT From [...] characteristics have been verified by the [facility]. For questions about this culture, contact the Microbiology Laboratory at [phone]. Interpretive data was last revised on 24. us Diana Cassidy MD LAB MICROBIOLOGY - GENE RAL ORDERABLES Final Result ALEK RAIN [facility] Department [place] [address] * US Renal Transplant W Dopplers (09/01/2024 [...] Soto Mena M.D., Ph.D Diana Cassidy MD [facility] PROCEDURES Final Result * (ABNORMAL) Respiratory pathogen panel Nasopharyngeal (09/01/2024 12:58 AM CDT) Pathologist [facility] Influenza A RNA Not Detected Not Detected Influenza B RNA Not Detected Not Detected [facility] RSV RNA Not Detected Not Detected [facility] COVID-19 RNA Not Detected Not Detected [facility] Coronavirus 229E RNA Not Detected Not Detected [facility] Coronavirus HKU1 RNA Not Detected Not Detected [facility] Coronavirus NL63 RNA Not Detected Not Detected [facility] Coronavirus OC43 RNA Not Detected Not Detected [facility] Adenovirus DNA Not Detected Not Detected [facility] Metapneumovirus RNA Not Detected Not Detected [facility] Rhinovirus/Enterov irus RNA Detected(A) Not Detected [facility] Parainfluenza 1 RNA Not Detected Not Detected [facility] Parainfluenza 2 RNA Not Detected Not Detected [facility] Parainfluenza 3 RNA Not Detected Not Detected [facility] Parainfluenza 4 RNA Not Detected Not Detected [facility] B. pertussis DNA Not Detected Not Detected [facility] B. parapertussis DNA Not Detected Not Detected [facility] C. pneumoniae DNA Not Detected Not Detected [facility] M. pneumoniae DNA Not Detected Not Detected [facility] Nasopharyngeal 09/01/2024 12 :58 AM CDT 09/01/2024 2:52 AM CDT Narrative [facility] - 09/01/2024 3:48 AM CDT Is the Patient experiencing symptoms consistent with COVID?->Yes Surveillance testing for transplant patient?->No Interpretive Data The [employer] FilmArray Respiratory Panel (RP2.1) assay is a [...] assay has FDA clearance for testing of SPOT CLEANER swabs. The performance of additional specimen types has been assessed by the performing laboratory. The performance characteristics of this assay have been determined by [facility] Molecular Infectious Disease Laboratory. Current interpretive data was last revised on 21. Diana Cassidy MD LAB MICROBIOLOGY - GENE [facility] ORDERABLES Final Result ALEK [facility] Department of Laboratories [place], [place] [id number] * Troponin I high-sensitivity series (baseline, 2hr, [...] Performing Organization Address City/[facility] Co de Phone Number [facility] [place] [address] * Sepsis Lactate w/ Reflex (09/01/2024 12:57 AM CDT) Sepsis Lactate 1.8 0.7 - 2.0 mmol/L Blood 09/01/2024 12:5 7 AM CDT 09/01/2024 1:14 AM CDT Diana Cassidy MD LAB BLOOD ORDERABLES Fi nal Result Performing Organization Address [facility] de Phone Number [facility] [place] [address] * (ABNORMAL) eGFR (09/01/2024 12:57 AM CDT) [...] BLOOD ORDERABLES Fi nal Result [facility] Department [place] [address] * Differential, auto (09/01/2024 12:57 AM CDT) Neutrophil abs 4.42 1.50 - 6.50 K/cumm Imm gran abs 0.03 0.00 - 0.10 K/cumm [facility] Lymphocyte abs 1.17 0.80 - 3.30 K/cumm [facility] Monocyte abs 0.38 0.20 - 0.80 K/cumm [facility] Eosinophil abs 0.10 0.00 - 0.50 K/cumm [facility] Basophil abs 0.02 0.00 - 0.10 K/cumm [facility] Neutrophil pct 72.3 % [facility] Comment: Interpretive Data Percent cell count reference ranges are not reported, since discordance with absolute values may lead to misinterpretation of CBC data. Current Interpretive Data was last revised on 2017. Imm gran pct 0.5 % [facility] Comment: Interpretive Data Percent cell count reference ranges are not reported, since discordance with absolute values may lead to misinterpretation of CBC data. Current Interpretive Data was last revised on 2017. Lymphocyte pct 19.1 % [facility] Comment: Interpretive Data Percent cell count reference ranges are not reported, since discordance with absolute values may lead to misinterpretation of CBC data. Current Interpretive Data was last revised on 2017. Monocyte pct 6.2 % [facility] Comment: Interpretive Data Percent cell count reference ranges are not reported, since discordance with absolute values may lead to misinterpretation of CBC data. Current Interpretive Data was last revised on 2017. Eosinophil pct 1.6 % [facility] Comment: Interpretive Data Percent cell count reference ranges are not reported, since discordance with absolute values may lead to misinterpretation of CBC data. Current Interpretive Data was last revised on 2017. Basophil pct 0.3 % [facility] Comment: Interpretive Data Percent cell count reference ranges are not reported, since discordance with absolute values may lead to misinterpretation of CBC data. Current Interpretive Data was last revised on 2017. Blood 09/01/2024 12:5 7 AM CDT 09/01/2024 1:20 AM CDT us Diana Cassidy MD LAB BLOOD ORDERABLES Fi nal Result [facility] Department [place] [address] * (ABNORMAL) Urinalysis reflex to microscopic and culture Urine, bladder (09/01/2024 12:57 AM CDT) Color, ur Yellow Yellow Clarity, ur Clear Clear [facility] Specific gravity, ur 1.020 1.003 - 1.[address] [facility] pH, urine 5.[address] [facility] Comment: Interpretive Data U rine pH is affected by diet, medications, systemic acid-base disturbances, and renal tubular function. pH may affect urinary stone formation. For example, urine pH below 6.0 may help reduce the tendency for calcium phosphate stones and pH greater than 6.0 may reduce the tendency for uric acid stone formation. Source: [facility] Current Interpretive Data was last revised on 2017 Protein, ur ql Trace Negative [facility] Glucose, ur ql Negative Negative [facility] Ketones, ur Trace Negative [facility] Bilirubin, ur Negative Negative [facility] Blood, ur Negative Negative [facility] Urobilinogen, ur 2.0(A) <2.0 mg/dL [facility] Nitrite, ur Negative Negative [facility] Leukocyte esterase, ur Negative Negative [facility] UA reflex comment Reflex conditions for microscopic UA and culture not met. [facility] Urine, bladder 09/01/2024 12 :57 AM CDT 09/01/2024 1:14 AM CDT Diana Cassidy MD LAB MICROBIOLOGY - GENE RAL ORDERABLES Final Result Performing Organization Address [facility]/ZIP Co de Phone Number [facility] Department [place] [address] * (ABNORMAL) CBC with auto differential (09/01/2024 12:57 AM CDT) Pathologist [facility] WBC 6.12 3.80 - 9.90 K/cumm Hgb 12.7 11.9 - 15.5 g/dL [facility] Hct 35.2(L) 35.6 - 45.5 % [facility] Plt 115(L) 150 - 400 K/cumm [facility] MPV 11.0 9.1 - 12.[address] [facility] RBC 3.20(L) 3.90 - 5.20 M/cumm [facility] MCV 110.0(H) 81.3 - 96.[address] [facility] MCH 39.7(H) 27.1 - 33.[address] [facility] MCHC 36.1(H) 32.3 - 35.7 g/dL [facility] RDW CV 14.2 11.1 - 14.9 % [facility] RDW SD 57.3(H) 35.7 - 48.[address] [facility] NRBC abs 0.00 0.00 - 0.01 K/cumm [facility] Blood 09/01/2024 12:5 7 AM CDT 09/01/2024 1:20 AM CDT Diana Cassidy MD LAB BLOOD ORDERABLES Fi nal Result [facility] Department [place] [address] * Tacrolimus level random (09/01/2024 12:57 AM CDT) Tacrolimus random 23.8 ng/mL Comment: Interpretive Data Testing performed by liquid chromatography-tandem mass spectrometry. Therapeutic concentrations vary depending on type of transplanted organ and time elapsed since transplant. Typical trough concentrations range from 5-15 ng/mL. This test was developed and its performance characteristics determined by the [facility] consistent with CLIA requirements. This test has not been cleared or approved by the US Food and Drug administration. Current interpretive data last reviewed 2019. Blood 09/01/2024 12:5 7 AM CDT 09/01/2024 1:20 AM CDT Diana Cassidy MD LAB BLOOD ORDERABLES Fi nal Result ALEK RAIN [facility] Department [place] [address] * Blood culture Blood (09/01/2024 12:57 AM CDT) Report Final Report: No growth Blood 09/01/2024 12:5 7 AM CDT 09/01/2024 1:35 AM CDT Narrative ALE[facility] - 09/05/2024 7:00 AM CDT Collection->Peripheral [...] characteristics have been verified by the [facility] Microbiology Laboratory. For questions about this culture, contact the Microbiology Laboratory at [phone]. Interpretive data was last revised on 24. Diana Cassidy MD LAB MICROBIOLOGY - GENE RAL ORDERABLES Final Result Performing Organization Address [facility] Co de Phone Number [facility] [place] [address] * Phosphorus (09/01/2024 12:57 AM CDT) Phosphorus, pl 2.9 2.3 - 4.5 mg/dL Blood 09/01/2024 12:5 7 AM CDT 09/01/2024 1:20 AM CDT Diana Cassidy MD LAB BLOOD ORDERABLES Fi nal Result Performing Organization Address [facility] de Phone Number [facility] [place] [address] * Magnesium (09/01/2024 12:57 AM CDT) Pathologist [facility] Magnesium 1.5 1.4 - 2.5 mg/dL Blood 09/01/2024 12:5 7 AM CDT 09/01/2024 1:20 AM CDT Diana Cassidy MD LAB BLOOD ORDERABLES Fi nal Result Performing Organization Address [facility] [place] [address] * Lipase (09/01/2024 12:57 AM CDT) Lipase 19 10 - 99 Units/L Blood 09/01/2024 12:5 7 AM CDT 09/01/2024 1:20 AM CDT Diana Cassidy MD LAB BLOOD ORDERABLES Fi nal Result [facility] Department [place] [address] * (ABNORMAL) Comprehensive metabolic panel (09/01/2024 12:57 AM CDT) Sodium 138 135 - 145 mmol/L Potassium, pl 4.5 3.3 - 4.9 mmol/L [facility] Comment:Hemolyzed; Potassium value may be falsely elevated by as much as 0.3-0.5 mmol/L. Suggest redraw and reanalysis. Chloride 105 97 - 110 mmol/L [facility] CO2 24 22 - 32 mmol/L [facility] Anion gap 9 2 - 15 mmol/L [facility] BUN 21 6 - 25 mg/dL [facility] Creatinine 2.34(H) 0.60 - 1.10 mg/dL [facility] Glucose 89 70 - 199 mg/dL [facility] Comment: Interpretive Data Fasting glucose >/= [...] 8.7 8.5 - 10.3 mg/dL [facility] Bilirubin, total 1.1 0.1 - 1.2 mg/dL [facility] Protein, pl 7.1 6.5 - 8.5 g/dL [facility] Albumin 3.9 3.5 - 5.0 g/dL [facility] Alk phos 257(H) 40 - 130 Units/L [facility] ALT 14 7 - 45 Units/L [facility] AST 37 10 - 45 Units/L [facility] Comment:Hemolyzed; result ma y be falsely elevated Blood 09/01/2024 12:5 7 AM CDT 09/01/2024 1:20 AM CDT us Diana Cassidy MD LAB BLOOD ORDERABLES Fi nal Result ALEK [facility] Department [place] [address] * Surgical pathology (08/02/2024 9:18 AM CDT) Tissue (Miscellaneous) 08/02/2024 9:18 AM CDT 08/02/2024 9:18 AM CDT Narrative [facility] PATHOLOGY LAB - 08/14/2024 2:01 PM CDT EPIC results best viewed via link to PDF [facility] Pathology Consult Service [address], [place] [address] Note to Patients: This report [...] SURGICAL PATHOLOGY REPORT * Consult Report * [facility] is providing an additional review of previously collected tissue. FINAL Patient Name: MISHA BROWNE Address: [address] [place] [id number] Gender: F : 1980 (Age: 43) [facility] #: [id number] Patient Type: WU Location: UNKNOWN Taken: 08/02/2024 Received: 08/02/2024 Accessioned: 08/05/2024 Reported: 08/14/2024 Physician(s): Beatriz Lee M.D. [facility] Department of Pathology [address] [place] [address] [place] [address] P: [phone] F: [phone] Diagnosis: Consult material received from [facility], [place], [place] (OSC: [id number]; 11/17/2023) A. 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 Liver, allograft, approximately 3 years [...] other material indicated in the diagnosis). Kayla uBrdick M.D. Report Electronically Reviewed and Signed Out By Kayla Burdick M.D. 08/14/2024 14:01:19 Diagnosis Comment Consult material received from [facility], [place], [place] (OSC: [id number]; 11/17/2023) Per chart review patient had a OLT in 1992 then a combined liver and kidney transplant at [place] on 04/2020. Course was complicated by biopsy [...] show moderate inflammatory infiltrate. There is patchy [id number] tubulitis. Small arteries and arterioles show mild [...] Received for review are ten slides labeled [id number], and nine slides labeled [id number], accompanied by a corresponding pathology report. The material originates from [facility], [place], [place]. Selected slide(s) may be digitally scanned [...] occasional mononuclear cells Arteriolar hyalinosis (ah): ah1 [id number] PAS-positive hyaline thickening in at least one [...] of Pathology and Immunology at [facility], [address] [place] [address] CLIA # [id number] The performance characteristics of the testing cited in this report (if any) were determined by the [facility] Department of Pathology and Immunology [facility], as part of an ongoing corporate quality manager program and in compliance with federally [...] characteristics determined by the [facility], [facility] Department of Pathology and Immunology. It has not been cleared or approved by the U.S. Food and Drug Administration. Any test designated as LDT was developed and its performance characteristics determined by [facility]. It has not been cleared or approved by the FDA. This test is used for clinical purposes and should not be regarded as investigational or for research. Report images and/or scanned reports, if included, only viewable in PDF version of report. us Beatriz Lee MD LAB PATHOLOGY ORDERA BLES Final Result [facility] LAB [address] [facility] [address] [place] [address] * XR Scoliosis 6 or More Views [...] * Hepatitis panel, acute (04/16/2020 6:35 AM TAX CONSULTANT) Hep A IgM Nonreactive Nonreactive [facility] Comment: Interpretive Data: If Hep A IgM Ab is reported as Equivocal, a new sample should be drawn in two weeks for testing. Current interpretive data was last revised on 19. Hep B core IgM Nonreactive Nonreactive [facility] Comment: Interpretive Data If HepB Core IgM Ab is reported as Equivocal, a new sample should be drawn in two weeks for testing. Current interpretive data was last revised on 19. Hep C Ab Nonreactive Nonreactive [facility] Comment:Antibodies to HCV no t detected. Does NOT exclude the possibility of recent exposure to HCV. HepBsAg Nonreactive Nonreactive [facility] Blood specimen (specimen) 04/16/2020 6:35 AM TAX CONSULTANT 04/16/2020 7:34 AM TAX CONSULTANT Jacob Gates MD LAB MICROBIOLOGY - GENER AL ORDERABLES Final Result [facility] Department [place] [address] from Last 3 Months or Most Recently Relevant to Health Maintenance Insurance [employer] OPEN ACCESS Service Route [facility] [employer] OPEN ACCESS [employer] [place] Advance Directives For more information, please contact: [phone] * Full Code (Latest Code Status on [...] 6:15 AM 07/25/2019 11:51 PM Care Teams Assistant Maintenance Manager Relationship Specialty Start Date End Date Adebayo Lylytammi Alarcon NP [address] [place] [address] PCP - General Nurse Practitioner 05/29/24 Beatriz Lee MD [address] [place] [address] Referring Physician Gastroenterology 07/25/19 Taylor Kitchen, product/industry consultantCompliance Vice President 05/29/24
--- OUTSIDE RECORDS SUMMARY | 2024-10-19 22:10 | XMS_ITS | Clinical Summary ---
Author Organization [facility] Address [address] [place] [address] Care Team Providers Care Health Editor Name Role Phone Hermes Ramirez MD Primary Care Provider [phone] Allergies Active Allergy Reactions Criticality Noted Date [...] Dates Next Due Tetanus-Diphth Toxoids Injection 10/18/2021 Ipycewc-Shslvjshmu-Pgzzasymh Pertussis (Tdap) Injection 10/18/2021,05/10/2017,05/25/2012 hepatitis A vaccine [...] on file Legal Sex Female 1:03 PM BENEFITS ANALYST Gender Identity Not on file Sexual [...] this topic Medical Devices Implanted Type Area Joint Filler Device Identifier Shelf Expiration Date Model / Serial / Lot Liver - [id number] Implanted:Qty: 1 on 05/09/2020 by Nirav Carpio MD at [facility] N/A: Abdomen ORGAN PROCUREMENT ORGANIZATION 05/10/2020 ORGAN - LIVER / [id number] / LOT NA Left Kidney - [id number] Implanted:Qty: 1 on 05/09/2020 by Nirav Carpio MD at [facility] N/A: Abdomen ORGAN PROCUREMENT ORGANIZATION 05/10/2020 ORGAN - LEFT KIDNEY / [id number] / LOT NA Stent Ureteral L12 Cm L100 Cm Od6 Fr .028 In Closed End Design One Step Insertion Radiopaque Filler Double-J Silicone Disposable - [id number] Implanted:Qty: 1 on 05/09/2020 by Nirav Carpio MD at [facility] N/A: Abdomen OLYMPUS - GYRUS ACMI WAGNER 02/11/2025 [id number] / / [id number] Stent Ureteral L12 Cm L100 Cm Od6 Fr .028 In Closed End Design One Step Insertion Radiopaque Filler Double-J Silicone Disposable - [id number] Implanted:Qty: 1 on 05/09/2020 by Nirav Carpio MD at [facility] N/A: Abdomen OLYMPUS - GYRUS ACMI WAGNER 02/11/2025 [id number] / / [id number] Device Closure L70 Cm .038 In Insertion Sheath Arteriotomy Gas Derrick Operator Guidewire J Box Shook Patcher Vascular Angio-Seal Evolution ([id number]) - [id number] Implanted:Qty: 1 on 07/20/2020 at [facility] TERUMO MEDICAL WAGNER 03/19/2021 [id number] / / [id number] Procedures Procedure Name Priority Date/Time Associated Diagnosis Comments HEPATITIS C VIRUS ANTIBODY Routine 11/07/2023 5:43 AM CDT HIV RNA QUANTITATION (HIV VIRAL LOAD) Routine 06/17/2020 9:55 AM CDT Other long term care social worker (current) drug therapy Encounter for aftercare following liver transplant (CMS-HCC) Status post kidney transplant PATHOLOGY GYNE CYTOLOGY 04/28/2020 12:00 AM BENEFITS ANALYST from Last 3 Months or Most Recently Relevant to Health Maintenance Results * Hepatitis C Virus Antibody (11/07/2023 5:43 AM CDT) Pathologist [facility] HEP C AB Not Detected Not Detected [facility] Comment: Antibodies to HCV not detected. This does not exclude the possibility of exposure to HCV. 11/07/2023 5:43 AM CDT 11/07/2023 6:16 AM CDT Phillip Mustafa MD LAB BLOOD ORDERABLES Final Re sult [address] [address] * HIV RNA Quantitation (06/17/2020 9:55 AM CDT) [facility] HIV-1 RNA QUANTITATION HIV RNA Quantitation [facility] HIV-1 RNA QUANTITATION Less than 40 Less than 40 Copies/m L [facility] HIV LOG RESULT Less than 1.6 R [facility] Comment: Methodology: Quantitation of HIV [...] PA-C LAB BLOOD MICRO Final Resu lt [address] [address] * Pathology Gyne Cytology: (04/28/2020 12:00 AM BENEFITS ANALYST) [facility] AP [facility] COPA TH CONVERSION PATHOLOGY RESULT Department of Pathology [facility] [address] [facility] [place] [address] Final *Clinical Data Electronic version* This report may not match the original report format REPORT DATE: 05/04/2020 FINAL CYTOLOGIC DIAGNOSIS GYNE THIN PREP + HPV HIGH RISK Adequacy: Satisfactory for evaluation, but limited by no transformation zone. General Category: Negative for intraepithelial lesion or malignancy. Description: Fungal organisms morphologically consistent with Lydia. HPV mRNA E6/E7 NOT DETECTED Performed using the APTIMA HPV Assay ([employer]) This assay detects E6/E7 viral messenger RNA (mRNA) from 14 high risk HPV types (16, 18, 31, 33, 35, 39, 45, 51, 52, 56, 58, 59, 66, 68) [Reference Range = NOT DETECTED] TEST PERFORMED AT: [facility], [address] [place] [address]. Manager Organizational: David Kc MD. IA # [id number]. Attending Pathologist: Destiny Obregon MD, PhD * Electronically signed Review by Tab Cutting Machine Operator: Akil De La Cruz * Electronically signed [...] developed and the performance characteristics determined by [facility] Department of Pathology. These tests have not been cleared or approved for commercial use by the U.S. Food and Drug Administration. This test is used for clinical purposes. It should not be regarded as investigational or for research. The FDA has determined that FDA review is not required for such assays. This is for [id number]. CLINICAL INFORMATION Date of Last Menstrual Period: UNKNOWN Other Clinical Conditions: LSIL or higher, bx/pap HPV, Hx/Dx/Rx Intradepartmental Consultation Pathologist: ICD-CM(s): A; Z12.4 Z11.51 CPT(s): A; 40889, 75839 [facility] COPATH CONVERSION AP Final Diagnosis GYNE THIN PREP + HPV HIGH RISK Adequacy: Satisfactory for evaluation, but limited by no transformation zone. General Category: Negative for intraepithelial lesion or malignancy. Description: Fungal organisms morphologically consistent with Lydia. HPV mRNA E6/E7 NOT DETECTED Performed using the APTIMA HPV Assay ([employer]) This assay detects E6/E7 viral messenger RNA (mRNA) from 14 high risk HPV types (16, 18, 31, 33, 35, 39, 45, 51, 52, 56, 58, 59, 66, 68) [Reference Range = NOT DETECTED] TEST PERFORMED AT: [facility], [address] [place] [address]. Manager Organizational: David Kc MD. CLIA # [id number]. [facility] COPATH CONVERSION AP Notes This case was reviewed by a pathologist for QC purposes only. [facility] COPATH CONVERSION AP ICD-10 Code Z12.4 Z11.51 [facility] COPATH CONVERSION HPV HR SCREEN SEE COMMENT [facility] COPATH CONVERSION 04/28/2020 04/29/2020 7:2 0 AM BENEFITS ANALYST Dulce Austin MD PATHOLOGY Edited Result - Final [facility] COPATH CONVERSION from Last 3 Months or Most Recently Relevant to Health Maintenance Advance Directives Documents on File Type Date Recorded Patient Weapons Specialist Expl anation Advance Directives 07/18/2020 9:50 AM [...] 1:35 AM 12/14/2020 1:59 PM Care Teams Health Editor Relationship Specialty Start Date End Date Hermes Ramirez MD [address] [place] [id number] PCP - General 05/28/20
--- OUTSIDE RECORDS SUMMARY | 2024-10-19 22:10 | XMS_ITS | Encounter Summary ---
Author Organization [facility] Address [address] [facility] [place] [address] Care Team Providers Care Make Ready Mechanic Name Role Phone Hermes Ramirez MD Primary Care Provider Reason for Visit * Reason Onset Date Comments Refill Request 04/08/2023 Encounter Details Date Type Department Care Team (Late st Contact Info) Description 04/08/2023 Refill [place] Transplant Program [address] [address] Marion Pedroza MD [address] [place] [address] Refill Request Social History Tobacco [...] Currently or in the past 3 m [facility], have you worried your food [...] on file Legal Sex Female 1:03 PM PHOTOGRAPHER APPRENTICE LITHOGRAPHIC Gender Identity Not on file Sexual Orientation [...] documented as of this encounter Care Teams Make Ready Mechanic Relationship Specialty Start Date End Date Hermes Ramirez MD [address] [place] [address] PCP - General 05/28/20 documented as of this encounter
--- OUTSIDE RECORDS SUMMARY | 2024-10-19 22:10 | XMS_ITS | Encounter Summary ---
Author Organization [facility] Address [address] [place] [address] Care Team Providers Care Truck Repair Service Estimator Name Role Phone Hermes Ramirez MD Primary Care Provider Reason for Visit * Reason Onset Date Comments Refill Request 06/01/2023 Encounter Details Date Type Department Care Team (Late st Contact Info) Description 06/01/2023 Refill [place] Transplant Program [address] [id number] Tico Salmon NP [address] [place] [address] Refill Request Social History Tobacco [...] Currently or in the past 3 m [facility], have you worried your food [...] on file Legal Sex Female 1:03 PM TIMBER SETTER Gender Identity Not on file Sexual [...] as of this encounter Care Teams Truck Repair Service Estimator Relationship Specialty Start Date End Date Hermes Ramirez MD [address] [place] [address] PCP - General 05/28/20 documented as of this encounter
--- NOTE | 2024-10-19 22:14 | ED_ITS ---
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 No motor or sensory deficit of the lower extremity. No bladder or bowel involvement. -- Headache-- is generalized. She had nausea and a few episodes of vomiting. Is similar to her usual headache. Patient is being followed by pain clinic at [facility] by Dr. Graham. patient did get epidural procedure recently. No fever or chills. Patient states that pain is relieved by IV fluids, IV Dilaudid, IV Benadryl MD elicited complaint: back pain Pertinent past history: prior back pain Onset (ago): week(s) Timing: constant Severity: severe Similar Symptoms Previously: Yes Quality: aching Location: lumbar spine Radiation: buttocks, left upper leg and right upper leg Exacerbating factors: movement Relieving factors: immobilization Associated symptoms: denies other symptoms Related Data Allergies Allergy/AdvReac Type Severity Reaction Status Date / Time erythromycin base Allergy Intermediate Rash Verified 10/08/24 14:13 gentamicin Allergy Intermediate Rash Verified 10/08/24 14:13 ketorolac (From Toradol) AdvReac Severe Abdominal Verified 10/08/24 14:13 Pain NSAIDS (Non-Steroidal AdvReac Severe Abdominal Verified 10/08/24 14:13 Anti-Inflamma Pain Review of Systems Review of Systems: All systems reviewed & are unremarkable except as noted in HPI and below Constitutional: Constitutional: Reports as per HPI and Reports no additional constitutional complaints Eyes: Eyes: Reports as per HPI and Reports no additional eye complaints ENT: Reports system reviewed and no additional complaints, except as documented and Reports as per HPI Cardiovascular: Cardiovascular: Reports as per HPI Respiratory: Respiratory: Reports as per HPI and Reports no additional respiratory complaints Gastrointestinal: Gastrointestinal: Reports as per HPI, Reports no additional gastrointestinal complaints, Reports nausea and Reports vomiting Genitourinary: Genitourinary: Reports no additional female genitourinary complaints and Reports as per HPI Musculoskeletal: Musculoskeletal: Reports no additional musculoskeletal complaints and Reports back pain Integumentary/Breasts: Skin/Breast: Reports system reviewed and no additional complaints, except as docu and Reports as per HPI Neurologic: Reports system reviewed and no additional complaints, except as documented, Reports as per HPI and Reports headache(s) Comments: no focal deficits noted. Psychiatric: Psychiatric: Reports no additional psychiatric complaints and Reports as per HPI Endocrine: Endocrine: Reports no additional endocrine complaints and Reports as per HPI Hematologic/Lymphatic: Hematologic/Lymphatic: Reports no additional hematologic/lymphatic complaints and Reports as per HPI Allergic/Immunologic: Allergic/Immunologic: Reports no additional allergic/immunologic complaints and Reports as per HPI REPLACED BY [facility] Past Medical History Medical History Anxiety and depression Spinal stenosis DJD (degenerative joint disease) Migraine Biliary atresia Surgical History Surgical History Liver transplant recipient Exam Narrative: Vitals are stable. Afebrile. Const: General: no acute distress Orientation/consciousness: patient oriented x3 Limitations: no limitations HENMT: Head: normal to inspection Ears: external ears normal Face/Nose/Sinus: Normal external nose present Face and sinus: normal facial exam Mouth: Yes Normal oral and palatal mucosa present Throat: posterior oropharynx normal Eyes: Conjunctivae: conjunctivae normal Pupils: Equal, round and reactive pupils present EOM: EOMs intact bilaterally Direct Ophthalmoscopy: no photophobia Neck: Neck: normal visual inspection, no lymphadenopathy and no meningeal signs Chest: Chest palpation & inspection: normal inspection of the chest Resp: Effort & Inspection: normal respiratory effort Auscultation: clear to auscultation bilaterally Cardio: Rate: regular rate Rhythm: regular rhythm GI: GI Palp: Yes Soft to palpation Auscultation: normal bowel sounds Other: Tenderness/rigidity / rebound. : General: Yes no CVA tenderness Back/Spine/Pelvis: Back: no CVA tenderness Skin: General skin exam: normal color Rashes: no rashes Wounds: no wounds Neuro: General: patient oriented x3, moves all extremities, no meningeal signs, no focal motor deficits and CN's II-XI intact bilaterally Cranial nerves: Yes Nystagmus not present Speech: normal speech Extrem: General: normal to inspection and no clubbing, cyanosis or edema Psych: Mental Status: mental status grossly normal Affect: normal affect Attitude: cooperative Course Course Emergency Course: Chronic low back pain migraine will give the patient 1 mg of IM Dilaudid and 50 of Benadryl. Vital Signs Vital signs: Vital Signs Temperature 36.3 C L 10/19/24 22:03 Pulse Rate 81 10/19/24 22:03 Respiratory Rate 16 10/19/24 22:03 Blood Pressure 168/87 H 10/19/24 22:03 Pulse Oximetry 97 10/19/24 22:03 Oxygen Delivery Room Air 10/19/24 22:03 Temperature 36.3 C L 10/19/24 22:03 Pulse Rate 81 10/19/24 22:03 Respiratory Rate 16 10/19/24 22:03 Blood Pressure 168/87 H 10/19/24 22:03 Pulse Oximetry 97 10/19/24 22:03 Oxygen Delivery Room Air 10/19/24 22:03 MDM - Back Pain/Injury MDM Narrative Medical decision making narrative: Chronic low back pain migraine Discharge Plan Discharge Clinical Impression: Headache, Chronic bilateral low back pain Patient Disposition: Home Condition: Stable Instructions: Antibiotic Form, Migraine Headache (ED), Chronic Back Pain (DC) Patient Language: Belizean Follow-up/Referrals: UNKNOWN,DOCTOR [Non-Staff] - Time of Disposition: 22:51
[2024-10-19] MEDS: HYDROmorphone HCL INJ (*CRX) 2 MG/ML VIAL 1 MG IM (22:40)
--- OUTSIDE RECORDS SUMMARY | 2024-10-19 22:46 | XMS_ITS | Encounter Summary ---
Author Organization [facility] Address [address] [place] [address] Care Team Providers Care Sales Expert Home Theater Name Role Phone Ashley ZUNIGA MD, Hermes Perez Primary Care Provid er Lyly Fiore NP Primary Care Provider [phone] Encounter Details Date Type Department Care Team (Late st Contact Info) Description 08/25/2018 Abstract [facility]FL CONVERSION [address] [place] [address] , Generic Conversion, Social History Tobacco Use Types Packs/Day Years Used Date Smoking Tobacco: Every Day Cigarettes 0.5 15 Smokeless Tobacco: Never Alcohol Use Standard Drinks/Week Comments No 0 (1 standard drink = 0.6 oz pur e alcohol) Comments No Sex and Gender Information Value Date Recorded Sex Assigned at Female 04/05/2024 4:26 PM HARPOON ENGAGEMENT PLANNING OPERATOR Legal Sex Female 9:15 PM HARPOON ENGAGEMENT PLANNING OPERATOR Gender Identity Not on file Sexual Orientation Not on file documented as of this encounter Plan of Treatment Not on file documented as of this encounter Visit Diagnoses Not on filedocumented in this encounter Additional Health Concerns Infection Onset Date Last Indicated Resolved Time COVID-19 Rule Out 03/30/2020 03/30/2020 03/30/2020 9:29 PM HARPOON ENGAGEMENT PLANNING OPERATOR COVID-19 Rule Out 03/30/2020 03/30/2020 03/31/2020 12:28 PM HARPOON ENGAGEMENT PLANNING OPERATOR COVID-19 Rule Out 02/16/2024 02/16/2024 02/16/2024 9:16 PM HARPOON ENGAGEMENT PLANNING OPERATOR Rhinovirus 02/16/2024 02/16/2024 02/26/2024 12:3 2 AM HARPOON ENGAGEMENT PLANNING OPERATOR COVID-19 Rule Out 08/26/2024 08/26/2024 08/26/2024 11:07 PM CDT Respiratory Rule Out 08/26/2024 08/26/2024 025 11:06 PM CDT documented as of this encounter Care Teams Sales Expert Home Theater Relationship Specialty Start Date End Date Hermes Ramirez III, MD [address] [facility] [address] [place] [address] PCP - General FAMILY PRACTICE 06/20/17 04/13/24 Lyly Fiore NP [address] [place] [address] PCP - General NURSE PRACTITIONER 04/14/24 documented as of this encounter
--- OUTSIDE RECORDS SUMMARY | 2024-10-19 22:46 | XMS_ITS ---
Author Organization [facility] Address [address] [place] [address] Care Team Providers Care Embossing Press Operator Name Role Phone Hermes Ramirez MD Primary Care Provider [phone] Transplant Episode Kidney, Liver Recipient [facility], [place] - [facility] Organs Received: Liver, Left Kidney Transplanted on 05/09/2020 Marked as Active Follow-up on 05/09/2020 Kidney, Liver CoordinatorMisty Ash RN Phone: N/A Fax: N/A Email: N/A [place] Organ Diagnosis Organ Primary Contributory Kidney Calcineurin [...] N/A Palak Garnica MD Transplant Attending Physician [phone] [email or web address] Nirav Carpio MD Transplant Surgeon [phone] N/A Snow Orozco MD Transplant E Commerce Architect [phone] [email or web address] Post-Transplant Pre-Transplant Admitted: 05/08/2020 Referred: 04/24/2020 Transplanted: 05/09/2020 Evaluation began: Discharged: 05/18/2020 Committee: 04/30/2020 Center waitlisted:
--- OUTSIDE RECORDS SUMMARY | 2024-10-19 22:46 | XMS_ITS | Continuity of Care Document ---
Author Organization [facility] Address [address] [place] [address] Phone Care Team Providers Care Building Estimator Name Role Phone Santana Timmons MD Unavailable Unavailable Procedures Procedure Date Subsequent Hospital Care Initial Inpatient Consult Advance Directives Directive Yes / No Effective Date File Name No Information Encounters Encounter Description Practice Location Reason(s) For Visit Diagnoses Date Provider Providers Copied on Encounter Subsequent Hospital Care [facility], [address] [place] [address], [id number], tel:[phone] [facility] No Information 1 Shanelle Dillon. [address] [place] [address], [id number], [place]. tel:[phone] Referring Provider: Hermes Ramirez , [address] [place] [address], [address]. tel:[phone] Initial Inpatient Consult [facility], [address] [place] [address], [id number], tel:[phone] [facility] No Information Shanelle Dillon. [address] [place] [address], [id number], . tel:[phone] Referring Provider: Hermes Ramirez [address], [address]. tel:[phone] Family History Family Member Type Diagnosis Age At Onset No Information Payers Payer name Insurance type Covered republican ID Authoriza tiyoan(s) [facility] [id number] Social History Type Description Quantity Date Captured Comments Sex Female Smoking Status No Information Chief Complaint And Reason For Visit No Information History Of Present Illness Encounter Date Complaint History Of Prese nt Illness No Information Instructions Date Instruction Additional Infor mation No Information Assessments Type Assessment Date No Information
--- OUTSIDE RECORDS SUMMARY | 2024-10-19 22:46 | XMS_ITS | Encounter Summary ---
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
--- OUTSIDE RECORDS SUMMARY | 2024-10-19 22:46 | XMS_ITS | Encounter Summary ---
Author Organization [facility] Address [address] [place] [address] Care Team Providers Care Rework Machine Operator Name Role Phone Beatriz Lee MD Unavailable [phone] Lyly Fiore MACHINIST LINOTYPE Primary Care Provider Taylor Kitchen RN Unavailable Unav ailable Reason for Visit * Reason Onset Date Comments PMC Preprocedure 09/19/2024 Encounter Details Date Type Department Care Team (Late st Contact Info) Description 09/19/2024 Telephone [facility] [address] [facility] [address] [place], [place] [id number] Igor Graham MD [address] [place] [address] PMC Preprocedure Social History Tobacco Use Types Packs/Day Years Used Date Smoking Tobacco: Every Day Cigarettes Smokeless Tobacco: Never Comments:1 cigarette day Alcohol Use Standard Drinks/Week Comments Never 0 (1 standard drink = 0.6 oz pur e alcohol) rare [facility] Utilities Answer Date Recorded In the past 12 months has [employer], gas, oil, or water company threatened to [...] often do you attend chur ch or worship services? 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
--- OUTSIDE RECORDS SUMMARY | 2024-10-19 22:46 | XMS_ITS | Encounter Summary ---
Author Organization [facility] Address [address] [place] [address] Care Team Providers Care Franchise Manager Name Role Phone Ashley ZUNIGA MD, Hermes Perez Primary Care Provid er Lyly Fiore NP Primary Care Provider [phone] Encounter Details Date Type Department Care Team (Late st Contact Info) Description 02/22/2024 Hospital Follow-up Call [facility] Cardiovascular Care Unit [address] [place] [address] Zulma Ardon, RN Social History Tobacco Use [...] any time in the past 12 m [facility], were you homeless or living in a correction (including now)? No 02/20/2024 Comments No Sex and Gender Information Value Date Recorded Sex Assigned at Female 04/05/2024 4:26 PM LIQUOR ESTABLISHMENT MANAGER Legal Sex Female 9:15 PM LIQUOR ESTABLISHMENT MANAGER Gender Identity Not on file Sexual [...] Rhinovirus 02/16/2024 02/16/2024 02/26/2024 12:3 2 AM LIQUOR ESTABLISHMENT MANAGER COVID-19 Rule Out 08/26/2024 08/26/2024 08/26/2024 11:07 PM CDT Respiratory Rule Out 08/26/2024 08/26/2024 025 11:06 PM CDT documented as of this encounter Care Teams Franchise Manager Relationship Specialty Start Date End Date Hermes Ramirez III, MD [address] [address] PCP - General FAMILY PRACTICE 06/20/17 04/13/24 Lyly Fiore NP [address] [place] [address] PCP - General NURSE PRACTITIONER 04/14/24 documented as of this encounter
--- OUTSIDE RECORDS SUMMARY | 2024-10-19 22:46 | XMS_ITS | Encounter Summary ---
Author Organization [facility] Address [address] [place] [address] Care Team Providers Care Clinical Services Consultant Name Role Phone Hermes Ramirez MD Primary Care Provider Reason for Visit * Reason Onset Date Comments Refill Request 06/01/2023 Encounter Details Date Type Department Care Team ([facility] st Contact Info) Description 06/01/2023 Refill [facility] [address] [id number] Allen Manzano PAVasquez [address] [facility] [address] [place] [address] Refill Request Social History Tobacco [...] on file Legal 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
--- OUTSIDE RECORDS SUMMARY | 2024-10-19 22:46 | XMS_ITS | Encounter Summary ---
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
--- OUTSIDE RECORDS SUMMARY | 2024-10-19 22:46 | XMS_ITS | Referral Summary ---
Author Organization [facility] Address [address] [place] [address] Care Team Providers Care Interventional Radiology Technologist Name Role Phone Beatriz Lee MD Unavailable +- [phone] Lyly Fiore RECEIVING TEAM MEMBER Primary Care Provider Taylor Kitchen RN Unavailable Unav ailable Encounters Date Type Department Care Team Description 09/26/2024 Telephone [facility] [address] [facility] Advanced Medicine [address] [place] [address] Igor Graham MD Post-Op Call 09/25/2024 8:48 AM CDT - 09/25/2024 11:59 PM CDT Hospital Encounter [facility] [address] [place] [address] Advanced Medicine [address] [place] [address] Igor Graham MD Lumbar disc disease with radiculopathy (Primary Dx); Lumbar spondylosis Discharge Disposition: Discharge to home or self care 09/19/2024 Telephone [facility] [address] [facility] Advanced Medicine [address] [place] [address] Igor Graham MD [facility] Preprocedure 09/09/2024 SHOP/CHAP Initial Eligibility Review [facility] OP CASE MANAGEMENT [address] [place] [address] Shireen Griffin RN 08/31/2024 11:48 PM CDT - 09/06/2024 4:45 PM CDT Hospital Encounter [facility] [address] [place] [address] Elisha Avila MD Freilich, MD Vicente Aguirre, Britta Alarcon MD Abdominal pain (Primary Dx); Liver transplant failure and rejection (HCC); Rhinovirus infection Discharge Disposition: Discharge to home or self care 08/27/2024 Telephone [facility] [address] [facility] Advanced [facility] [address] [place] [address] Igor Graham MD Pre Procedure 08/15/2024 Results Follow-Up [facility] Transplant Liver [address] [place] [address] [address] [id number] [place] [address] Taylor Kitchen RN Surgical pathology 08/15/2024 10:30 AM CDT Clinical Support [place] [id number] [facility] Advanced [facility] 1st [place] [address] Brielle Carrillo, PhD 08/14/2024 12:21 PM CDT - 08/14/2024 11:59 PM CDT Hospital Encounter [facility] Advanced Medicine [address] [facility] [address] [place] [address] Igor Graham MD Lumbar spondylosis (Primary Dx); Lumbar disc disease with radiculopathy Discharge Disposition: Discharge to home or self care 08/02/2024 Orders Only [facility] [address] [place] [address] Beatriz Lee MD History of liver transplant (HCC); History of kidney transplant 08/01/2024 Telephone [facility] Transplant Liver [address] [facility] [address] [id number] [place] [address] Misty Vail RN 07/29/2024 Telephone [facility] Transplant Liver [address] [facility] [address] [id number] [place] [address] Lorena Turner 07/26/2024 2:55 PM CDT - 07/26/2024 2:56 PM CDT Emergency [facility] Emergency Department [address] [place] [address] Discharge Disposition: Left without being seen 07/24/2024 Telephone [facility] Transplant Liver [address] [facility] [address] [id number] [place] [address] Lorena Turner 07/24/2024 9:45 AM CDT - 07/24/2024 11:59 PM CDT Hospital Encounter [facility] [address] [place] [address] Jessee Morton MD Lumbar spine pain; Adolescent idiopathic scoliosis of thoracic region Discharge Disposition: Discharge to home or self care 07/24/2024 10:00 AM CDT Office Visit [facility] Orthopaedic Surgery [address] [facility] Advanced Medicine 6th [place] [address] [place] [address] Jessee Morton MD Lumbar spine pain (Primary Dx); Adolescent idiopathic scoliosis of thoracic region; Chronic bilateral low back pain without sciatica 07/22/2024 Telephone [facility] Transplant Liver [address] [place] [address] [address] [id number] [place] [address] Dafne Dukes RN 07/19/2024 Telephone [facility] Transplant Liver [address] [facility] [address] [id number] [place] [address] Karmen Garsia RN After Hours; Abdominal Pain [...] t be different from the original. Lab: Count Includes [facility]. . . Pharmacy: [place], [place] Patient enrolled in [employer] assistance program [...] with baseline creatinine ~2. Previously followed at [facility], but has she has been wanting to transfer care to [place] but has not been able to schedule an appointment. She follows with [facility]. Per Liver Transplant office visit [...] with baseline creatinine ~2. Previously followed at [facility], but has she has been wanting to transfer care to [place] but has not been able to schedule an appointment. She follows with [facility]. Per Liver Transplant office visit [...] with baseline creatinine ~2. Previously followed at [facility], but has she has been wanting to transfer care to [place] but has not been able to schedule an appointment. She follows with [facility]. Per Liver Transplant office visit [...] with baseline creatinine ~2. Previously followed at [facility], but has she has been wanting to transfer care to [place] but has not been able to schedule an appointment. She follows with [facility]. Per Liver Transplant office visit [...] with baseline creatinine ~2. Previously followed at [facility], but has she has been wanting to transfer care to [place] but has not been able to schedule an appointment. She follows with [facility]. Per Liver Transplant office visit [...] with baseline creatinine ~2. Previously followed at [facility], but has she has been wanting to transfer care to [place] but has not been able to schedule an appointment. She follows with [facility]. Per Liver Transplant office visit [...] with baseline creatinine ~2. Previously followed at [facility], but has she has been wanting to transfer care to [place] but has not been able to schedule an appointment. She follows with [facility]. Per Liver Transplant office visit [...] with baseline creatinine ~2. Previously followed at [facility], but has she has been wanting to transfer care to [place] but has not been able to schedule an appointment. She follows with [facility]. Per Liver Transplant office visit [...] with baseline creatinine ~2. Previously followed at [facility], but has she has been wanting to transfer care to [place] but has not been able to schedule an appointment. She follows with [facility]. Per Liver Transplant office visit [...] with baseline creatinine ~2. Previously followed at [facility], but has she has been wanting to transfer care to [place] but has not been able to schedule an appointment. She follows with [facility]. Per Liver Transplant office visit [...] with baseline creatinine ~2. Previously followed at [facility], but has she has been wanting to transfer care to [place] but has not been able to schedule an appointment. She follows with [facility]. Per Liver Transplant office visit [...] we would not be able to prescribe intermission coordinator opioids on discharge. Discussed importance of outpatient [...] we would not be able to prescribe intermission coordinator opioids on discharge. Discussed importance of outpatient [...] we would not be able to prescribe intermission coordinator opioids on discharge. Discussed importance of outpatient [...] with baseline creatinine ~2. Previously followed at [facility], but has she has been wanting to transfer care to [place] but has not been able to schedule an appointment. She follows with [facility]. Per Liver Transplant office visit [...] with baseline creatinine ~2. Previously followed at [facility], but has she has been wanting to transfer care to [place] but has not been able to schedule an appointment. She follows with [facility]. Per Liver Transplant office visit [...] with baseline creatinine ~2. Previously followed at [facility], but has she has been wanting to transfer care to [place] but has not been able to schedule an appointment. She follows with [facility]. Per Liver Transplant office visit [...] with baseline creatinine ~2. Previously followed at [facility], but has she has been wanting to transfer care to [place] but has not been able to schedule an appointment. She follows with [facility]. Per Liver Transplant office visit [...] with baseline creatinine ~2. Previously followed at [facility], but has she has been wanting to transfer care to [place] but has not been able to schedule an appointment. She follows with [facility]. Per Liver Transplant office visit [...] with baseline creatinine ~2. Previously followed at [facility], but has she has been wanting to transfer care to [place] but has not been able to schedule an appointment. She follows with [facility]. Per Liver Transplant office visit [...] Transplant starting process of assuming care from [facility], but in short term they recommend patient follow up with renal transplant at [facility]. - She is NOW actively enrolled in the [employer] free patient assistance program through mar 2025 - script needs to be sent to [facility] (sent). Hyperbilirubinemia 04/16/2020 Assessment & Plan (04/16/2020 5:01 AM CELLOPHANE TESTER): - T. Bili of 7 (last was [...] 07/25/2019 Assessment & Plan (04/16/2020 2:25 AM CELLOPHANE TESTER): See hyperbili problem. Concern for ascites Assessment [...] 12/14/2016 Assessment & Plan (04/16/2020 2:26 AM CELLOPHANE TESTER): - Chronic, concerned that this may be [...] liver and kidney transplant 04/2020. 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 We would need to call [facility] to identify a contracted center ([phone]). She lives close enough to [place] that would be the most likely city she could travel to. She also noted that she could always remarry an ex- as he has insurance that may be covered at [facility]. Appreciate note from nephrology and agree with restarting oral diuretics. Can continue tacrolimus at the current dose. MRI/MRCP completed and will review with radiology to identify if any role for PTC. Assessment & Plan (04/16/2020 2:26 AM CELLOPHANE TESTER): S/p liver tranplant in 1992 for biliary [...] meds Assessment & Plan (04/16/2020 5:01 AM CELLOPHANE TESTER): Unclear if progression of CKD vs acute [...] Cr of 1.8. She follows with local science education professor Dr. Mathew and thinks her baseline is 2.1. She was at 2.3 at [facility]. She took some diuretics at home and was given lasix at [facility] ED. --UA, urine lytes --get records from her science education professor to find out baseline --random tacro level --monitor Is & Os; avoid nephrotoxins Social History Tobacco Use Types Packs/Day Years Used Date Smoking Tobacco: Every Day Cigarettes Smokeless Tobacco: Never Tobacco Cessation:Ready to Q uit: Not Asked; Counseling Given: Not Answered Comments:1 cigarette day Alcohol Use Standard Drinks/Week Comments Never 0 (1 standard drink = 0.6 oz pur e alcohol) rare [facility] Utilities Answer Date Recorded In the past 12 months has e [email or web address], gas, oil, or water [employer] threatened to shut off services in your [...] often do you attend chur ch or christianity services? Never 09/03/2024 Do you belong to any clubs o r organizations such as rastafari groups, unions, fraternal or athletic groups, or [...] any time in the past 12 m [facility], were you homeless or living in a residential (including now)? No 09/03/2024 Personal Safety Answer Date Recorded Have you ever been in or are you currently in a harmful physical or emotional relationship or is someone making you feel afraid or unsafe? Denies 09/02/2024 Comments No Sex and Gender Information Value Date Recorded Sex Assigned at Not on file Legal Sex Female 10:10 PM CELLOPHANE TESTER Gender Identity Not on file Sexual [...] region HEPATITIS PANEL, ACUTE Routine 6:35 AM CELLOPHANE TESTER from Last 3 Months or Most Recently Relevant to Health Maintenance Results * Imaging Lumbar/Sacral Facet Medial Branch Block Bilateral (41406) (09/25/2024 9:47 AM CDT) Narrative [id number] - [...] MD LAB BLOOD ORDERABLES Aniya l Result [facility] Department [place] [address] * Tacrolimus level trough (09/06/2024 9:48 AM CDT) Pathologist [facility] Tacrolimus trough 6.4 ng/mL Comment: Interpretive Data [...] Rico MD LAB BLOOD ORDERABLES Final Result [facility] [place] [address] * (ABNORMAL) Comprehensive metabolic panel (09/06/2024 9:48 AM CDT) [facility] Sodium 139 135 - 145 mmol/L Potassium, pl 4.1 3.3 - 4.9 mmol/L [facility] Comment:Hemolyzed; Potassium value may be falsely elevated by as much as 0.3-0.5 mmol/L. Suggest redraw and reanalysis. Chloride 102 97 - 110 mmol/L [facility] CO2 26 22 - 32 mmol/L [facility] Anion gap 11 2 - 15 mmol/L [facility] BUN 24 6 - 25 mg/dL [facility] Creatinine 2.04(H) 0.60 - 1.10 mg/dL [facility] Glucose 167 70 - 199 mg/dL [facility] Comment: Interpretive Data Fasting glucose [...] MD LAB BLOOD ORDERABLES Aniya l Result [facility] [place] [address] * (ABNORMAL) eGFR (09/05/2024 10:47 AM CDT) [...] MD LAB BLOOD ORDERABLES Aniya andrez Result [facility] [address] [facility] [place] [address] * Differential, auto (09/05/2024 10:47 AM CDT) Neutrophil abs 3.84 1.50 - 6.50 K/cumm Imm gran abs 0.03 0.00 - 0.10 K/cumm [facility] Lymphocyte abs 1.33 0.80 - 3.30 K/cumm [facility] Monocyte abs 0.30 0.20 - 0.80 K/cumm [facility] Eosinophil abs 0.15 0.00 - 0.50 K/cumm [facility] Basophil abs 0.01 0.00 - 0.10 K/cumm [facility] Neutrophil pct 67.8 % [facility] Comment: Interpretive Data Percent cell count reference ranges are not reported, since discordance with absolute values may lead to misinterpretation of CBC data. Current Interpretive Data was last revised on 2017. Imm gran pct 0.5 % [facility] Comment: Interpretive Data Percent cell count reference ranges are not reported, since discordance with absolute values may lead to misinterpretation of CBC data. Current Interpretive Data was last revised on 2017. Lymphocyte pct 23.5 % [facility] Comment: Interpretive Data Percent cell count reference ranges are not reported, since discordance with absolute values may lead to misinterpretation of CBC data. Current Interpretive Data was last revised on 2017. Monocyte pct 5.3 % [facility] Comment: Interpretive Data Percent cell count reference ranges are not reported, since discordance with absolute values may lead to misinterpretation of CBC data. Current Interpretive Data was last revised on 2017. Eosinophil pct 2.7 % [facility] Comment: Interpretive Data Percent cell count reference ranges are not reported, since discordance with absolute values may lead to misinterpretation of CBC data. Current Interpretive Data was last revised on 2017. Basophil pct 0.2 % [facility] Comment: Interpretive Data Percent cell count reference ranges are not reported, since discordance with absolute values may lead to misinterpretation of CBC data. Current Interpretive Data was last revised on 2017. Blood 09/05/2024 10:4 7 AM CDT 09/05/2024 11:03 AM CDT Britta Zhang MD LAB BLOOD ORDERABLES Aniya l Result Performing Organization Address [facility] de Phone Number [facility] Department [place] [email or web address] [place] [address] * Tacrolimus level trough (09/05/2024 10:47 AM [...] AM CDT 09/05/2024 11:04 AM CDT [facility]ative [facility] - 09/05/2024 1:14 PM CDT Draw exactly 12 HOURS after last dose of tacrolimus was given and just BEFORE giving next dose Britta Zhang MD LAB BLOOD ORDERABLES Aniya l Result Performing Organization Address [facility] Co de Phone Number [facility] [place] [address] * (ABNORMAL) CBC with auto differential (09/05/2024 10:47 AM CDT) [facility] WBC 5.66 3.80 - 9.90 K/cumm Hgb 11.1(L) 11.9 - 15.5 g/dL [facility] Hct 31.6(L) 35.6 - 45.5 % [facility] Plt 115(L) 150 - 400 K/cumm [facility] MPV 11.4 9.1 - 12.3 fL [facility] RBC 2.81(L) 3.90 - 5.20 M/cumm [facility] MCV 112.5(H) 81.3 - 96.4 fL [facility] MCH 39.5(H) 27.1 - 33.3 pg [facility] MCHC 35.1 32.3 - 35.7 g/dL [facility] RDW CV 14.2 11.1 - 14.9 % [facility] RDW SD 59.0(H) 35.7 - 48.1 fL [facility] NRBC abs 0.00 0.00 - 0.01 K/cumm [facility] Blood 09/05/2024 10:4 7 AM CDT 09/05/2024 11:03 AM CDT Britta Zhang MD LAB BLOOD ORDERABLES Aniya maguire Result [facility] [place] [address] * (ABNORMAL) Comprehensive metabolic panel (09/05/2024 10:47 AM CDT) [facility] Sodium 143 135 - 145 mmol/L Potassium, pl 4.2 3.3 - 4.9 mmol/L [facility] Chloride 102 97 - 110 mmol/L [facility] CO2 28 22 - 32 mmol/L [facility] Anion gap 13 2 - 15 mmol/L [facility] BUN 28(H) 6 - 25 mg/dL [facility] Creatinine 2.49(H) 0.60 - 1.10 mg/dL [facility] Glucose 127 70 - 199 mg/dL [facility] Comment: Interpretive Data Fasting glucose [...] 2022. Calcium 9.0 8.5 - 10.3 mg/dL [facility] Bilirubin, total 0.7 0.1 - 1.2 mg/dL [facility] Protein, pl 6.4(L) 6.5 - 8.5 g/dL [facility] Albumin 3.7 3.5 - 5.0 g/dL [facility] Alk phos 257(H) 40 - 130 Units/L [facility] ALT 18 7 - 45 Units/L [facility] AST 27 10 - 45 Units/L [facility] Blood 09/05/2024 10:4 7 AM CDT 09/05/2024 11:03 AM CDT Britta Zhang MD LAB BLOOD ORDERABLES Aniya maguire Result [facility] [place] [address] * (ABNORMAL) eGFR (09/04/2024 5:03 AM CDT) [...] MD LAB BLOOD ORDERABLES Aniya maguire Result [facility] [place] [address] * Differential, auto (09/04/2024 5:03 AM CDT) Neutrophil abs 2.68 1.50 - 6.50 K/cumm Imm gran abs 0.01 0.00 - 0.10 K/cumm [facility] Lymphocyte abs 1.03 0.80 - 3.30 K/cumm [facility] Monocyte abs 0.23 0.20 - 0.80 K/cumm [facility] Eosinophil abs 0.09 0.00 - 0.50 K/cumm [facility] Basophil abs 0.00 0.00 - 0.10 K/cumm [facility] Neutrophil pct 66.4 % [facility] Comment: Interpretive Data Percent cell count reference ranges are not reported, since discordance with absolute values may lead to misinterpretation of CBC data. Current Interpretive Data was last revised on 2017. Imm gran pct 0.2 % [facility] Comment: Interpretive Data Percent cell count reference ranges are not reported, since discordance with absolute values may lead to misinterpretation of CBC data. Current Interpretive Data was last revised on 2017. Lymphocyte pct 25.5 % [facility] Comment: Interpretive Data Percent cell count reference ranges are not reported, since discordance with absolute values may lead to misinterpretation of CBC data. Current Interpretive Data was last revised on 2017. Monocyte pct 5.7 % [facility] Comment: Interpretive Data Percent cell count reference ranges are not reported, since discordance with absolute values may lead to misinterpretation of CBC data. Current Interpretive Data was last revised on 2017. Eosinophil pct 2.2 % [facility] Comment: Interpretive Data Percent cell count reference ranges are not reported, since discordance with absolute values may lead to misinterpretation of CBC data. Current Interpretive Data was last revised on 2017. Basophil pct 0.0 % [facility] Comment: Interpretive Data Percent cell count reference ranges are not reported, since discordance with absolute values may lead to misinterpretation of CBC data. Current Interpretive Data was last revised on 2017. Blood 09/04/2024 5:03 AM CDT 09/04/2024 5:10 AM CDT Britta Zhang MD LAB BLOOD ORDERABLES Aniya maguire Result [facility] [place] [address] * Tacrolimus level trough (09/04/2024 5:03 AM [...] CDT 09/04/2024 5:10 AM CDT Narrative [facility] - 09/04/2024 7:32 AM CDT Draw exactly 12 HOURS after last dose of tacrolimus was given and just BEFORE giving next dose Britta Zhang MD LAB BLOOD ORDERABLES Aniya l Result [facility] [place] [address] * (ABNORMAL) CBC with auto differential (09/04/2024 5:03 AM CDT) [facility] WBC 4.04 3.80 - 9.90 K/cumm Hgb 11.8(L) 11.9 - 15.5 g/dL [facility] Hct 32.9(L) 35.6 - 45.5 % [facility] Plt 66(L) 150 - 400 K/cumm [facility] MPV 12.0 9.1 - 12.3 fL [facility] RBC 2.96(L) 3.90 - 5.20 M/cumm [facility] MCV 111.1(H) 81.3 - 96.4 fL [facility] MCH 39.9(H) 27.1 - 33.3 pg [facility] MCHC 35.9(H) 32.3 - 35.7 g/dL [facility] RDW CV 14.0 11.1 - 14.9 % [facility] RDW SD 56.5(H) 35.7 - 48.1 fL [facility] NRBC abs 0.00 0.00 - 0.01 K/cumm [facility] Blood 09/04/2024 5:03 AM CDT 09/04/2024 5:10 AM CDT us Britta Zhang MD LAB BLOOD ORDERABLES Aniya l Result [facility] [place] [address] * (ABNORMAL) Comprehensive metabolic panel (09/04/2024 5:03 AM CDT) Pathologist [facility] Sodium 137 135 - 145 mmol/L Potassium, pl 4.2 3.3 - 4.9 mmol/L [facility] Chloride 100 97 - 110 mmol/L [facility] CO2 26 22 - 32 mmol/L [facility] Anion gap 11 2 - 15 mmol/L [facility] BUN 30(H) 6 - 25 mg/dL [facility] Creatinine 2.87(H) 0.60 - 1.10 mg/dL [facility] Glucose 153 70 - 199 mg/dL [facility] Comment: Interpretive Data Fasting glucose [...] 2022. Calcium 8.5 8.5 - 10.3 mg/dL [facility] Bilirubin, total 0.8 0.1 - 1.2 mg/dL [facility] Protein, pl 6.6 6.5 - 8.5 g/dL [facility] Albumin 3.5 3.5 - 5.0 g/dL [facility] Alk phos 240(H) 40 - 130 Units/L [facility] ALT 12 7 - 45 Units/L [facility] AST 31 10 - 45 Units/L [facility] Blood 09/04/2024 5:03 AM CDT 09/04/2024 5:10 AM CDT Britta Zhang MD LAB BLOOD ORDERABLES Aniya maguire Result [facility] [place] [address] * (ABNORMAL) eGFR (09/03/2024 5:21 AM CDT) [...] MD LAB BLOOD ORDERABLES Aniya maguire Result [facility] [place] [address] * Differential, auto (09/03/2024 5:21 AM CDT) Neutrophil abs 3.79 1.50 - 6.50 K/cumm Imm gran abs 0.03 0.00 - 0.10 K/cumm [facility] Lymphocyte abs 0.84 0.80 - 3.30 K/cumm [facility] Monocyte abs 0.25 0.20 - 0.80 K/cumm [facility] Eosinophil abs 0.05 0.00 - 0.50 K/cumm [facility] Basophil abs 0.00 0.00 - 0.10 K/cumm [facility] Neutrophil pct 76.5 % [facility] Comment: Interpretive Data Percent cell count reference ranges are not reported, since discordance with absolute values may lead to misinterpretation of CBC data. Current Interpretive Data was last revised on 2017. Imm gran pct 0.6 % [facility] Comment: Interpretive Data Percent cell count reference ranges are not reported, since discordance with absolute values may lead to misinterpretation of CBC data. Current Interpretive Data was last revised on 2017. Lymphocyte pct 16.9 % [facility] Comment: Interpretive Data Percent cell count reference ranges are not reported, since discordance with absolute values may lead to misinterpretation of CBC data. Current Interpretive Data was last revised on 2017. Monocyte pct 5.0 % [facility] Comment: Interpretive Data Percent cell count reference ranges are not reported, since discordance with absolute values may lead to misinterpretation of CBC data. Current Interpretive Data was last revised on 2017. Eosinophil pct 1.0 % [facility] Comment: Interpretive Data Percent cell count reference ranges are not reported, since discordance with absolute values may lead to misinterpretation of CBC data. Current Interpretive Data was last revised on 2017. Basophil pct 0.0 % [facility] Comment: Interpretive Data Percent cell count reference ranges are not reported, since discordance with absolute values may lead to misinterpretation of CBC data. Current Interpretive Data was last revised on 2017. Blood 09/03/2024 5:21 AM CDT 09/03/2024 5:31 AM CDT Britta Zhang MD LAB BLOOD ORDERABLES Aniya maguire Result [facility] [place] [address] * Tacrolimus level trough (09/03/2024 5:21 AM [...] AM CDT 09/03/2024 5:31 AM CDT Narrative [facility] - 09/03/2024 9:19 AM CDT Draw exactly 12 HOURS after last dose of tacrolimus was given and just BEFORE giving next dose us Britta Zhang MD LAB BLOOD ORDERABLES Aniya andrez Result Performing Organization Address [facility] de Phone Number [facility] Department [place] [address] * (ABNORMAL) CBC with auto differential (09/03/2024 5:21 AM CDT) [facility] WBC 4.96 3.80 - 9.90 K/cumm Hgb 11.3(L) 11.9 - 15.5 g/dL [facility] Hct 30.7(L) 35.6 - 45.5 % [facility] Plt 83(L) 150 - 400 K/cumm [facility] MPV 11.0 9.1 - 12.3 fL [facility] RBC 2.84(L) 3.90 - 5.20 M/cumm [facility] MCV 108.1(H) 81.3 - 96.4 fL [facility] MCH 39.8(H) 27.1 - 33.3 pg [facility] MCHC 36.8(H) 32.3 - 35.7 g/dL [facility] RDW CV 13.9 11.1 - 14.9 % [facility] RDW SD 54.4(H) 35.7 - 48.1 fL [facility] NRBC abs 0.00 0.00 - 0.01 K/cumm [facility] Blood 09/03/2024 5:21 AM CDT 09/03/2024 5:31 AM CDT Britta Zhang MD LAB BLOOD ORDERABLES Aniya maguire Result Performing Organization Address [facility]/ZIP Co de Phone Number [facility] [place] [address] * (ABNORMAL) Comprehensive metabolic panel (09/03/2024 5:21 AM CDT) Sodium 138 135 - 145 mmol/L Potassium, pl 4.7 3.3 - 4.9 mmol/L [facility] Chloride 101 97 - 110 mmol/L [facility] CO2 29 22 - 32 mmol/L [facility] Anion gap 8 2 - 15 mmol/L [facility] BUN 29(H) 6 - 25 mg/dL [facility] Creatinine 2.92(H) 0.60 - 1.10 mg/dL [facility] Glucose 113 70 - 199 mg/dL [facility] Comment: Interpretive Data Fasting glucose [...] 2022. Calcium 9.2 8.5 - 10.3 mg/dL [facility] Bilirubin, total 1.1 0.1 - 1.2 mg/dL [facility] Protein, pl 6.2(L) 6.5 - 8.5 g/dL [facility] Albumin 3.4(L) 3.5 - 5.0 g/dL [facility] Alk phos 233(H) 40 - 130 Units/L [facility] ALT 13 7 - 45 Units/L [facility] AST 22 10 - 45 Units/L [facility] Blood 09/03/2024 5:21 AM CDT 09/03/2024 5:31 AM CDT us Britta Zhang MD LAB BLOOD ORDERABLES Aniya maguire Result [facility] [place] [address] * BK virus PCR quantitative Blood (09/02/2024 12:21 PM CDT) BKV DNA result, pl Not Detected [facility] Comment: The quantifiable range of this assay is 21.5 IU/mL to 100,000,000 IU/mL (1.33 log IU/mL to 8.00 log IU/mL). Testing was performed by the JOHNNY 6800 BKV Quantatitive Test version 2.0 ([employer] Testing performed at [facility] Current Interpretive Data was last revised on 2021. Blood 09/02/2024 12:2 1 PM CDT 09/02/2024 12:52 PM CDT Result [facility] Britta Zhang MD LAB MICROBIOLOGY - GENERA L ORDERABLES Final Result [facility] Department [place] [address] [facility] * HLA Donor Specific Antibody Report (09/02/2024 [...] ORDERABLES Aniya l Result Performing Organization Address City/[facility]/ZIP Co de Phone Number [facility] [place] [address] * Cytomegalovirus (CMV) DNA PCR, quantitative Blood (09/02/2024 12:21 PM CDT) CMV DNA Not Detected [facility] Comment: Interpretive Data: The quantifiable range of this assay is 34 IUnits/mL to 10,000,000 IUnits/mL (1.53 log IUnits/mL to 7.0 log IUnits/mL). Testing was performed by the JOHNNY 6800 CMV Test ([employer] Testing performed at [facility]. Current interpretive data was last revised on 2020. Blood 09/02/2024 12:2 1 PM CDT 09/02/2024 12:52 PM CDT Result [facility] Britta Zhang MD LAB MICROBIOLOGY - GENERA L ORDERABLES Final Result Performing Organization Address City/[facility] Co de Phone Number [facility] Department [place] [address] [facility] * (ABNORMAL) eGFR (09/02/2024 12:21 PM CDT) [...] MD LAB BLOOD ORDERABLES Aniya maguire Result [facility] [place] [address] * Blood culture Blood (09/02/2024 12:21 PM CDT) Report Final Report: No growth Blood 09/02/2024 12:2 1 PM CDT 09/02/2024 1:40 PM CDT Narrative [facility] - 09/06/2024 4:00 PM CDT From a [...] by the [facility] Microbiology Laboratory. For questions about this culture, contact the Microbiology Laboratory at [phone]. Interpretive data was last revised on 24. Britta Zhang MD LAB MICROBIOLOGY - GENERA L ORDERABLES Final Result [facility] Department [place] [address] * Blood culture Blood (09/02/2024 12:21 PM CDT) Report Final Report: No growth Blood 09/02/2024 12:2 1 PM CDT 09/02/2024 1:40 PM CDT Narrative [facility] - 09/06/2024 4:00 PM CDT Collection->Peripheral 1. [...] by the [facility] Microbiology Laboratory. For questions about this culture, contact the Microbiology Laboratory at [phone]. Interpretive data was last revised on 24. Britta Zhang MD LAB MICROBIOLOGY - GENERA L ORDERABLES Final Result Performing Organization Address City/[facility]/ZIP Co de Phone Number [facility] Department [place] [address] * (ABNORMAL) Renal function panel (09/02/2024 12:21 PM CDT) Pathologist [facility] Sodium 137 135 - 145 mmol/L Potassium, pl 3.9 3.3 - 4.9 mmol/L [facility] Chloride 97 97 - 110 mmol/L [facility] CO2 31 22 - 32 mmol/L [facility] Anion gap 9 2 - 15 mmol/L [facility] BUN 28(H) 6 - 25 mg/dL [facility] Creatinine 2.89(H) 0.60 - 1.10 mg/dL [facility] Glucose 162 70 - 199 mg/dL [facility] Comment: Interpretive Data Fasting glucose [...] 2022. Calcium 9.7 8.5 - 10.3 mg/dL [facility] Phosphorus, pl 4.1 2.3 - 4.5 mg/dL [facility] Albumin 3.5 3.5 - 5.0 g/dL [facility] Blood 09/02/2024 12:2 1 PM CDT 09/02/2024 12:42 PM CDT Britta Zhang MD LAB BLOOD ORDERABLES Aniya maguire Result [facility] [place] [address] * (ABNORMAL) eGFR (09/02/2024 5:16 AM CDT) [...] Valiente MD LAB BLOOD ORDERABLES Final Result [facility] [place] [address] * Differential, auto (09/02/2024 5:16 AM CDT) Neutrophil abs 3.97 1.50 - 6.50 K/cumm Imm gran abs 0.02 0.00 - 0.10 K/cumm [facility] Lymphocyte abs 1.10 0.80 - 3.30 K/cumm [facility] Monocyte abs 0.24 0.20 - 0.80 K/cumm [facility] Eosinophil abs 0.11 0.00 - 0.50 K/cumm [facility] Basophil abs 0.01 0.00 - 0.10 K/cumm [facility] Neutrophil pct 72.8 % [facility] Comment: Interpretive Data Percent cell count reference ranges are not reported, since discordance with absolute values may lead to misinterpretation of CBC data. Current Interpretive Data was last revised on 2017. Imm gran pct 0.4 % [facility] Comment: Interpretive Data Percent cell count reference ranges are not reported, since discordance with absolute values may lead to misinterpretation of CBC data. Current Interpretive Data was last revised on 2017. Lymphocyte pct 20.2 % [facility] Comment: Interpretive Data Percent cell count reference ranges are not reported, since discordance with absolute values may lead to misinterpretation of CBC data. Current Interpretive Data was last revised on 2017. Monocyte pct 4.4 % [facility] Comment: Interpretive Data Percent cell count reference ranges are not reported, since discordance with absolute values may lead to misinterpretation of CBC data. Current Interpretive Data was last revised on 2017. Eosinophil pct 2.0 % [facility] Comment: Interpretive Data Percent cell count reference ranges are not reported, since discordance with absolute values may lead to misinterpretation of CBC data. Current Interpretive Data was last revised on 2017. Basophil pct 0.2 % [facility] Comment: Interpretive Data Percent cell count reference ranges are not reported, since discordance with absolute values may lead to misinterpretation of CBC data. Current Interpretive Data was last revised on 2017. Blood 09/02/2024 5:16 AM CDT 09/02/2024 5:32 AM CDT us Bailee Valiente MD LAB BLOOD ORDERABLES Final Result [facility] [place] [address] * Tacrolimus level trough (09/02/2024 5:16 AM CDT) [facility] Signature Tacrolimus trough 17.0 ng/mL Comment: [...] MD LAB BLOOD ORDERABLES Aniya l Result [facility] Department [place] [address] * (ABNORMAL) CBC with auto differential (09/02/2024 5:16 AM CDT) WBC 5.45 3.80 - 9.90 K/cumm Hgb 11.7(L) 11.9 - 15.5 g/dL [facility] Hct 32.3(L) 35.6 - 45.5 % [facility] Plt 98(L) 150 - 400 K/cumm [facility] MPV 11.4 9.1 - 12.3 fL [facility] RBC 2.95(L) 3.90 - 5.20 M/cumm [facility] MCV 109.5(H) 81.3 - 96.4 fL [facility] MCH 39.7(H) 27.1 - 33.3 pg [facility] MCHC 36.2(H) 32.3 - 35.7 g/dL [facility] RDW CV 13.9 11.1 - 14.9 % [facility] RDW SD 56.6(H) 35.7 - 48.1 fL [facility] NRBC abs 0.00 0.00 - 0.01 K/cumm [facility] Blood 09/02/2024 5:16 AM CDT 09/02/2024 5:32 AM CDT us Bailee Valiente MD LAB BLOOD ORDERABLES Final Result [facility] [place] [address] * (ABNORMAL) Comprehensive metabolic panel (09/02/2024 5:16 AM CDT) Sodium 137 135 - 145 mmol/L Potassium, pl 4.1 3.3 - 4.9 mmol/L [facility] Chloride 98 97 - 110 mmol/L [facility] CO2 32 22 - 32 mmol/L [facility] Anion gap 7 2 - 15 mmol/L [facility] BUN 29(H) 6 - 25 mg/dL [facility] Creatinine 3.05(H) 0.60 - 1.10 mg/dL [facility] Glucose 185 70 - 199 mg/dL [facility] Comment: Interpretive Data Fasting glucose [...] 2022. Calcium 9.0 8.5 - 10.3 mg/dL [facility] Bilirubin, total 1.0 0.1 - 1.2 mg/dL [facility] Protein, pl 6.3(L) 6.5 - 8.5 g/dL [facility] Albumin 3.8 3.5 - 5.0 g/dL [facility] Alk phos 223(H) 40 - 130 Units/L [facility] ALT 11 7 - 45 Units/L [facility] AST 24 10 - 45 Units/L [facility] Blood 09/02/2024 5:16 AM CDT 09/02/2024 5:32 AM CDT us Bailee Valiente MD LAB BLOOD ORDERABLES Final Result [facility] [place] [address] * Troponin I high-sensitivity 2-hour (09/01/2024 2:58 AM CDT) Trop I hs 5 <=17 ng/L Comment: Interpretive Data For further hscTnI resources including the diagnostic algorithm and an aid in interpretation, copy and paste this link: https://bjhlab.testcatalog.org/show/[email or web address] Current Interpretive Data last revised 2019. Trop I hs delta 0 ng/L [facility] Trop I hs interp Insignificant [facility] Blood 09/01/2024 2:58 AM CDT 09/01/2024 3:13 AM CDT us Diana Cassidy MD LAB BLOOD ORDERABLES Fi nal Result Performing Organization Address [facility] Co de Phone Number [facility] [place] [address] * ECG 12-LEAD (09/01/2024 2:53 AM CDT) Narrative [facility] 09/01/2024 2:53 AM CDT Elisha Avila MD 09/01/2024 3:24 AM ECG 12 lead Date/Time: 09/01/2024 2:53 AM Performed by: Elisha Avila MD Authorized by: Diana Cassidy MD Diana Cassidy MD ECG ORDERABLES Final R esult Performing Organization Address [facility] Co de Phone Number [facility] * XR Chest PA Lateral 2 [...] and read back by: Flower Moser MD ([phone]) on 09/02/2024 03:01:57 by: Radu Helm MT Direct Specimen Exam Stain: Gram Positive Cocci in clusters Time to culture positivity (anaerobic media): 21.4 hours Notification of: Gram Positive Cocci in clusters called to and read back by: Flower Moser MD ([phone]) on 09/02/2024 01:01:22 by: Radu Helm MT [facility] Report Final Report: Staphylococcus epidermidis Single blood culture positive for this microorganism. Isolate is a possible contaminant. If a similar isolate is recovered from a second blood culture collected within 3 days of this culture, both will be evaluated and, if determined to be the same species, antimicrobial susceptibility testing will be performed. (.) [facility] Organism STAPHYLOCOCCUS EPIDERMIDIS [facility] Blood 09/01/2024 2:18 AM CDT 09/01/2024 2:43 AM CDT Narrative [facility] - 09/06/2024 12:48 PM CDT From a [...] by the [facility] Microbiology Laboratory. For questions about this culture, contact the Microbiology Laboratory at [phone]. Interpretive data was last revised on 24. us Diana Cassidy MD LAB MICROBIOLOGY - GENE RAL ORDERABLES Final Result [facility] [place] [address] * US Renal Transplant W Dopplers (09/01/2024 [...] Soto Mena M.D., Ph.D Diana Cassidy MD [facility] PROCEDURES Final Result * (ABNORMAL) Respiratory pathogen panel Nasopharyngeal (09/01/2024 12:58 AM CDT) Pathologist [facility] Influenza A RNA Not Detected Not Detected Influenza B RNA Not Detected Not Detected [facility] RSV RNA Not Detected Not Detected [facility] COVID-19 RNA Not Detected Not Detected [facility] Coronavirus 229E RNA Not Detected Not Detected [facility] Coronavirus HKU1 RNA Not Detected Not Detected [facility] Coronavirus NL63 RNA Not Detected Not Detected [facility] Coronavirus OC43 RNA Not Detected Not Detected [facility] Adenovirus DNA Not Detected Not Detected [facility] Metapneumovirus RNA Not Detected Not Detected [facility] Rhinovirus/Enterov irus RNA Detected(A) Not Detected [facility] Parainfluenza 1 RNA Not Detected Not Detected [facility] Parainfluenza 2 RNA Not Detected Not Detected [facility] Parainfluenza 3 RNA Not Detected Not Detected [facility] Parainfluenza 4 RNA Not Detected Not Detected [facility] B. pertussis DNA Not Detected Not Detected [facility] B. parapertussis DNA Not Detected Not Detected [facility] C. pneumoniae DNA Not Detected Not Detected [facility] M. pneumoniae DNA Not Detected Not Detected [facility] Nasopharyngeal 09/01/2024 12 :58 AM CDT 09/01/2024 2:52 AM CDT Narrative [facility] - 09/01/2024 3:48 AM CDT Is the Patient experiencing symptoms consistent with COVID?->Yes Surveillance testing for transplant patient?->No Interpretive Data The [employer] FilmArray Respiratory Panel (RP2.1) assay is a [...] assay has FDA clearance for testing of RECEIVING [employer] MEMBER swabs. The performance of additional specimen types has been assessed by the performing laboratory. The performance characteristics of this assay have been determined by [facility] Molecular Infectious Disease Laboratory. Current interpretive data was last revised on 21. Diana Cassidy MD LAB MICROBIOLOGY - GENE [facility] ORDERABLES Final Result [facility] Department of Laboratories [place], [place] [id number] * Troponin I high-sensitivity series (baseline, 2hr, [...] ORDERABLES Fi nal Result Performing Organization Address City/[facility] Co de Phone Number [facility] [place] [email or web address] [place] [address] * Sepsis Lactate w/ Reflex (09/01/2024 12:57 AM CDT) Sepsis Lactate 1.8 0.7 - 2.0 mmol/L Blood 09/01/2024 12:5 7 AM CDT 09/01/2024 1:14 AM CDT Diana Cassidy MD LAB BLOOD ORDERABLES Fi nal Result Performing Organization Address [facility] de Phone Number [facility] [email or web address] [address] * (ABNORMAL) eGFR (09/01/2024 12:57 AM CDT) [...] MD LAB BLOOD ORDERABLES Fi nal Result [facility] [place] [address] * Differential, auto (09/01/2024 12:57 AM CDT) Neutrophil abs 4.42 1.50 - 6.50 K/cumm Imm gran abs 0.03 0.00 - 0.10 K/cumm [facility] Lymphocyte abs 1.17 0.80 - 3.30 K/cumm [facility] Monocyte abs 0.38 0.20 - 0.80 K/cumm [facility] Eosinophil abs 0.10 0.00 - 0.50 K/cumm [facility] Basophil abs 0.02 0.00 - 0.10 K/cumm [facility] Neutrophil pct 72.3 % [facility] Comment: Interpretive Data Percent cell count reference ranges are not reported, since discordance with absolute values may lead to misinterpretation of CBC data. Current Interpretive Data was last revised on 2017. Imm gran pct 0.5 % [facility] Comment: Interpretive Data Percent cell count reference ranges are not reported, since discordance with absolute values may lead to misinterpretation of CBC data. Current Interpretive Data was last revised on 2017. Lymphocyte pct 19.1 % [facility] Comment: Interpretive Data Percent cell count reference ranges are not reported, since discordance with absolute values may lead to misinterpretation of CBC data. Current Interpretive Data was last revised on 2017. Monocyte pct 6.2 % [facility] Comment: Interpretive Data Percent cell count reference ranges are not reported, since discordance with absolute values may lead to misinterpretation of CBC data. Current Interpretive Data was last revised on 2017. Eosinophil pct 1.6 % [facility] Comment: Interpretive Data Percent cell count reference ranges are not reported, since discordance with absolute values may lead to misinterpretation of CBC data. Current Interpretive Data was last revised on 2017. Basophil pct 0.3 % [facility] Comment: Interpretive Data Percent cell count reference ranges are not reported, since discordance with absolute values may lead to misinterpretation of CBC data. Current Interpretive Data was last revised on 2017. Blood 09/01/2024 12:5 7 AM CDT 09/01/2024 1:20 AM CDT us Diana Cassidy MD LAB BLOOD ORDERABLES Fi nal Result [facility] [place] [address] * (ABNORMAL) Urinalysis reflex to microscopic and culture Urine, bladder (09/01/2024 12:57 AM CDT) Color, ur Yellow Yellow Clarity, ur Clear Clear [facility] Specific gravity, ur 1.020 1.003 - 1.030 [facility] pH, urine 5.5 [facility] Comment: Interpretive Data U rine pH is affected by diet, medications, systemic acid-base disturbances, and renal tubular function. pH may affect urinary stone formation. For example, urine pH below 6.0 may help reduce the tendency for calcium phosphate stones and pH greater than 6.0 may reduce the tendency for uric acid stone formation. Source: [email or web address] Current Interpretive Data was last revised on 2017 Protein, ur ql Trace Negative [facility] Glucose, ur ql Negative Negative [facility] Ketones, ur Trace Negative [facility] Bilirubin, ur Negative Negative [facility] Blood, ur Negative Negative [facility] Urobilinogen, ur 2.0(A) <2.0 mg/dL [facility] Nitrite, ur Negative Negative [facility] Leukocyte esterase, ur Negative Negative [facility] UA reflex comment Reflex conditions for microscopic UA and culture not met. [facility] Urine, bladder 09/01/2024 12 :57 AM CDT 09/01/2024 1:14 AM CDT Diana Cassidy MD LAB MICROBIOLOGY - GENE RAL ORDERABLES Final Result Performing Organization Address [facility]/ZIP Co de Phone Number [facility] [place] [address] * (ABNORMAL) CBC with auto differential (09/01/2024 12:57 AM CDT) Pathologist [facility] WBC 6.12 3.80 - 9.90 K/cumm Hgb 12.7 11.9 - 15.5 g/dL [facility] Hct 35.2(L) 35.6 - 45.5 % [facility] Plt 115(L) 150 - 400 K/cumm [facility] MPV 11.0 9.1 - 12.3 fL [facility] RBC 3.20(L) 3.90 - 5.20 M/cumm [facility] MCV 110.0(H) 81.3 - 96.4 fL [facility] MCH 39.7(H) 27.1 - 33.3 pg [facility] MCHC 36.1(H) 32.3 - 35.7 g/dL [facility] RDW CV 14.2 11.1 - 14.9 % [facility] RDW SD 57.3(H) 35.7 - 48.1 fL [facility] NRBC abs 0.00 0.00 - 0.01 K/cumm [facility] Blood 09/01/2024 12:5 7 AM CDT 09/01/2024 1:20 AM CDT Diana Cassidy MD LAB BLOOD ORDERABLES Fi nal Result [facility] [place] [address] * Tacrolimus level random (09/01/2024 12:57 AM [...] ORDERABLES Fi nal Result [facility] [place] [address] * Blood culture Blood (09/01/2024 12:57 AM CDT) Report Final Report: No growth Blood 09/01/2024 12:5 7 AM CDT 09/01/2024 1:35 AM CDT Narrative [facility] - 09/05/2024 7:00 AM CDT Collection->Peripheral 1. [...] by the [facility] Microbiology Laboratory. For questions about this culture, contact the Microbiology Laboratory at [phone]. Interpretive data was last revised on 24. Diana Cassidy MD LAB MICROBIOLOGY - GENE RAL ORDERABLES Final Result Performing Organization Address [facility] Co de Phone Number [facility] [place] [address] * Phosphorus (09/01/2024 12:57 AM CDT) Phosphorus, pl 2.9 2.3 - 4.5 mg/dL Blood 09/01/2024 12:5 7 AM CDT 09/01/2024 1:20 AM CDT Diana Cassidy MD LAB BLOOD ORDERABLES Fi nal Result Performing Organization Address [facility] de Phone Number [facility] [place] [address] * Magnesium (09/01/2024 12:57 AM CDT) Pathologist [facility] Magnesium 1.5 1.4 - 2.5 mg/dL Blood 09/01/2024 12:5 7 AM CDT 09/01/2024 1:20 AM CDT Diaan Cassidy MD LAB BLOOD ORDERABLES Fi nal Result Performing Organization Address [facility] [place] [address] * Lipase (09/01/2024 12:57 AM CDT) Lipase 19 10 - 99 Units/L Blood 09/01/2024 12:5 7 AM CDT 09/01/2024 1:20 AM CDT Diana Cassidy MD LAB BLOOD ORDERABLES Fi nal Result [facility] Department [place] [address] * (ABNORMAL) Comprehensive metabolic panel (09/01/2024 12:57 AM CDT) Sodium 138 135 - 145 mmol/L Potassium, pl 4.5 3.3 - 4.9 mmol/L [facility] Comment:Hemolyzed; Potassium value may be falsely elevated by as much as 0.3-0.5 mmol/L. Suggest redraw and reanalysis. Chloride 105 97 - 110 mmol/L [facility] CO2 24 22 - 32 mmol/L [facility] Anion gap 9 2 - 15 mmol/L [facility] BUN 21 6 - 25 mg/dL [facility] Creatinine 2.34(H) 0.60 - 1.10 mg/dL [facility] Glucose 89 70 - 199 mg/dL [facility] Comment: Interpretive Data Fasting glucose [...] Calcium 8.7 8.5 - 10.3 mg/dL [facility] Bilirubin, total 1.1 0.1 - 1.2 mg/dL [facility] Protein, pl 7.1 6.5 - 8.5 g/dL [facility] Albumin 3.9 3.5 - 5.0 g/dL [facility] Alk phos 257(H) 40 - 130 Units/L [facility] ALT 14 7 - 45 Units/L [facility] AST 37 10 - 45 Units/L [facility] Comment:Hemolyzed; result ma y be falsely elevated Blood 09/01/2024 12:5 7 AM CDT 09/01/2024 1:20 AM CDT us Diana Cassidy MD LAB BLOOD ORDERABLES Fi nal Result [facility] [place] [address] * Surgical pathology (08/02/2024 9:18 AM CDT) Tissue (Miscellaneous) 08/02/2024 9:18 AM CDT 08/02/2024 9:18 AM CDT Narrative [facility] PATH[facility]Y [facility] - 08/14/2024 2:01 PM CDT EPIC results best viewed via link to PDF [facility] Pathology Consult Service [address], [place] [address] Note to Patients: This report [...] SURGICAL PATHOLOGY REPORT * Consult Report * [facility] is providing an additional review of previously collected tissue. FINAL Patient Name: MISHA BROWNE Address: [address] [place] [id number] Gender: F : 1980 (Age: 43) [facility] #: [id number] Patient Type: WU Location: UNKNOWN Taken: 08/02/2024 Received: 08/02/2024 Accessioned: 08/05/2024 Reported: 08/14/2024 Physician(s): Beatriz Lee M.D. [facility] Department of Pathology [address] [place] [address] [place] [address] P: [phone] F: [phone] Diagnosis: Consult material received from [facility], [place], [place] (OSC: [id number]; 11/17/2023) A. 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 Course was complicated by biopsy [...] show moderate inflammatory infiltrate. There is patchy [id number] tubulitis. Small arteries and arterioles show mild [...] Received for review are ten slides labeled [id number], and nine slides labeled [id number], accompanied by a corresponding pathology report. The material originates from [facility], [place], [place]. Selected slide(s) may be digitally scanned [...] occasional mononuclear cells Arteriolar hyalinosis (ah): ah1 [id number]-tx-[id number] PAS-positive hyaline thickening in at least one [...] of Pathology and Immunology at [facility], [address] [place] [address] CLIA # [id number] The performance characteristics of the testing cited in this report (if any) were determined by the [facility] Department of Pathology and Immunology [facility], as part of an ongoing software quality specialist program and in compliance with [...] characteristics determined by the [facility], [facility] Department of Pathology and Immunology. It has not been cleared or approved by the U.S. Food and Drug Administration. Any test designated as LDT was developed and its performance characteristics determined by [facility]. It has not been cleared or approved by the FDA. This test is used for clinical purposes and should not be regarded as investigational or for research. Report images and/or scanned reports, if included, only viewable in PDF version of report. us Beatriz Lee MD LAB PATHOLOGY ORDERA BLES Final Result [facility] [address] [facility] [address] [place] [address] * XR Scoliosis 6 or More Views [...] * Hepatitis panel, acute (04/16/2020 6:35 AM CELLOPHANE TESTER) Hep A IgM Nonreactive Nonreactive [facility] Comment: Interpretive Data: If Hep A IgM Ab is reported as Equivocal, a new sample should be drawn in two weeks for testing. Current interpretive data was last revised on 19. Hep B core IgM Nonreactive Nonreactive [facility] Comment: Interpretive Data If HepB Core IgM Ab is reported as Equivocal, a new sample should be drawn in two weeks for testing. Current interpretive data was last revised on 19. Hep C Ab Nonreactive Nonreactive [facility] Comment:Antibodies to HCV no t detected. Does NOT exclude the possibility of recent exposure to HCV. HepBsAg Nonreactive Nonreactive [facility] Blood specimen (specimen) 04/16/2020 6:35 AM CELLOPHANE TESTER 04/16/2020 7:34 AM CELLOPHANE TESTER Jacob Gates MD LAB MICROBIOLOGY - GENER AL ORDERABLES Final Result [facility] [place] [address] from Last 3 Months or Most Recently Relevant to Health Maintenance Insurance [employer] OPEN ACCESS [employer] [facility] [employer] OPEN ACCESS [employer] [place] ID[place] Advance Directives For more information, please contact: [phone] * Full Code (Latest Code Status on [...] 6:15 AM 07/25/2019 11:51 PM Care Teams Interventional Radiology Technologist Relationship Specialty Start Date End Date Adebayo Lylytammi Alarcon NP [address] [place] [address] PCP - General Nurse Practitioner 05/29/24 Beatriz Lee MD [address] [place] [address] Referring Physician Gastroenterology 07/25/19 Taylor Kitchen, banana carrierData Collection Interviewer 05/29/24
--- OUTSIDE RECORDS SUMMARY | 2024-10-19 22:46 | XMS_ITS | Encounter Summary ---
Author Organization 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
--- OUTSIDE RECORDS SUMMARY | 2024-10-19 22:46 | XMS_ITS | Encounter Summary ---
Author Organization [facility] Address [address] [facility] [address] [place] [address] Care Team Providers Care Hand Roller Engraver Name Role Phone Hermes Ramirez MD Primary Care Provider [phone] Reason for Visit * Reason Onset Date Comments Refill Request 02/15/2021 Encounter Details Date Type Department Care Team ([facility] st Contact Info) Description 02/15/2021 Refill [facility] [address] [id number] Allen Manzano PAVasquez [address] [facility] [address] [place] [address] Refill Request Social History Tobacco [...] on file 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
--- OUTSIDE RECORDS SUMMARY | 2024-10-19 22:46 | XMS_ITS | Clinical Summary ---
Author Organization [facility] Address [address] [place] [address] Phone Care Team Providers Care Contracts Law Professor Name Role Phone Hermes Ramirez MD Primary Care Provider [phone] Allergies Active Allergy Reactions Criticality Noted Date [...] BEDTIME 2 Active Butalbital-APAP -Caff-Cod (Fioricet/Codei ne) 53-323-21-30 MG Capsule Take by mouth. 2 Active [...] 07/26/2024 5:51 PM CDT Emergency [facility] Emergency [address] [place] [address] Gabriel Mcintyre PAC GERD (gastroesophageal reflux disease) [...] topic Insurance [place] [facility] [employer] Care Teams Contracts Law Professor Relationship Specialty Start Date End Date Hermes Ramirez MD [address] [address] PCP - General Family Medicine 05/09/18
--- OUTSIDE RECORDS SUMMARY | 2024-10-19 22:46 | XMS_ITS | Clinical Summary ---
Author Organization [facility] Address [address] [place] [address] Care Team Providers Care In Mold Coater Name Role Phone Beatriz Lee MD Unavailable [phone] Lyly Fiore CONSTRUCTION DRILLER Primary Care Provider Taylor Kitchen RN Unavailable [...] different from the original. Lab: [facility]. . . Pharmacy: [place], [place] Patient enrolled in [employer] assistance program for [employer] until 03/2025 -[facility] for script Problem Noted Date Diagnosed [...] with baseline creatinine ~2. Previously followed at [facility], but has she has been wanting to transfer care to [place] but has not been able to schedule an appointment. She follows with [facility]. Per Liver Transplant office [...] with baseline creatinine ~2. Previously followed at [facility], but has she has been wanting to transfer care to [place] but has not been able to schedule an appointment. She follows with [facility]. Per Liver Transplant office [...] with baseline creatinine ~2. Previously followed at [facility], but has she has been wanting to transfer care to [place] but has not been able to schedule an appointment. She follows with [facility]. Per Liver Transplant office [...] with baseline creatinine ~2. Previously followed at [facility], but has she has been wanting to transfer care to [place] but has not been able to schedule an appointment. She follows with [facility]. Per Liver Transplant office [...] with baseline creatinine ~2. Previously followed at [facility], but has she has been wanting to transfer care to [place] but has not been able to schedule an appointment. She follows with [facility]. Per Liver Transplant office [...] with baseline creatinine ~2. Previously followed at [facility], but has she has been wanting to transfer care to [place] but has not been able to schedule an appointment. She follows with [facility]. Per Liver Transplant office [...] with baseline creatinine ~2. Previously followed at [facility], but has she has been wanting to transfer care to [place] but has not been able to schedule an appointment. She follows with [facility]. Per Liver Transplant office [...] with baseline creatinine ~2. Previously followed at [facility], but has she has been wanting to transfer care to [place] but has not been able to schedule an appointment. She follows with [facility]. Per Liver Transplant office [...] with baseline creatinine ~2. Previously followed at [facility], but has she has been wanting to transfer care to [place] but has not been able to schedule an appointment. She follows with [facility]. Per Liver Transplant office [...] with baseline creatinine ~2. Previously followed at [facility], but has she has been wanting to transfer care to [place] but has not been able to schedule an appointment. She follows with [facility]. Per Liver Transplant office [...] with baseline creatinine ~2. Previously followed at [facility], but has she has been wanting to transfer care to [place] but has not been able to schedule an appointment. She follows with [facility]. Per Liver Transplant office [...] we would not be able to prescribe stereo equipment installer opioids on discharge. Discussed importance of outpatient [...] we would not be able to prescribe usp opioids on discharge. Discussed importance of outpatient [...] we would not be able to prescribe usp opioids on discharge. Discussed importance of outpatient [...] we would not be able to prescribe stereo equipment installer opioids on discharge. Discussed importance of outpatient [...] we would not be able to prescribe stereo equipment installer opioids on discharge. Discussed importance of outpatient [...] we would not be able to prescribe stereo equipment installer opioids on discharge. Discussed importance of outpatient [...] we would not be able to prescribe stereo equipment installer opioids on discharge. Discussed importance of outpatient [...] we would not be able to prescribe usp opioids on discharge. Discussed importance of outpatient [...] we would not be able to prescribe usp opioids on discharge. Discussed importance of outpatient [...] we would not be able to prescribe stereo equipment installer opioids on discharge. Discussed importance of outpatient [...] we would not be able to prescribe usp opioids on discharge. Discussed importance of outpatient [...] we would not be able to prescribe usp opioids on discharge. Discussed importance of outpatient [...] with baseline creatinine ~2. Previously followed at [facility], but has she has been wanting to transfer care to [place] but has not been able to schedule an appointment. She follows with [facility]. Per Liver Transplant office [...] with baseline creatinine ~2. Previously followed at [facility], but has she has been wanting to transfer care to [place] but has not been able to schedule an appointment. She follows with [facility]. Per Liver Transplant office [...] with baseline creatinine ~2. Previously followed at [facility], but has she has been wanting to transfer care to [place] but has not been able to schedule an appointment. She follows with [facility]. Per Liver Transplant office [...] with baseline creatinine ~2. Previously followed at [facility], but has she has been wanting to transfer care to [place] but has not been able to schedule an appointment. She follows with [facility]. Per Liver Transplant office [...] with baseline creatinine ~2. Previously followed at [facility], but has she has been wanting to transfer care to [place] but has not been able to schedule an appointment. She follows with [facility]. Per Liver Transplant office [...] with baseline creatinine ~2. Previously followed at [facility], but has she has been wanting to transfer care to [place] but has not been able to schedule an appointment. She follows with [facility]. Per Liver Transplant office [...] Transplant starting process of assuming care from [facility], but in short term they recommend patient follow up with renal transplant at [facility]. - She is NOW actively enrolled in the [employer] free patient assistance program through mar 2025 - script needs to be sent to [facility] (sent). Hyperbilirubinemia 04/16/2020 Assessment & Plan (04/16/2020 5:01 AM SWITCHBOARD OPERATOR SUPERVISOR): - T. Bili of 7 (last [...] 07/25/2019 Assessment & Plan (04/16/2020 2:25 AM SWITCHBOARD OPERATOR SUPERVISOR): See hyperbili problem. Concern for ascites [...] 12/14/2016 Assessment & Plan (04/16/2020 2:26 AM SWITCHBOARD OPERATOR SUPERVISOR): - Chronic, concerned that this may [...] liver and kidney transplant 04/2020. 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 We would need to call [facility] to identify a contracted center ([phone]). She lives close enough to [place] that would be the most likely city she could travel to. She also noted that she could always remarry an ex- as he has insurance that may be covered at [facility]/. Appreciate note from nephrology and agree with restarting oral diuretics. Can continue tacrolimus at the current dose. MRI/MRCP completed and will review with radiology to identify if any role for PTC. Assessment & Plan (04/16/2020 2:26 AM SWITCHBOARD OPERATOR SUPERVISOR): S/p liver tranplant in 1992 for [...] meds Assessment & Plan (04/16/2020 5:01 AM SWITCHBOARD OPERATOR SUPERVISOR): Unclear if progression of CKD vs [...] Cr of 1.8. She follows with local paper cutting machine operator Dr. Mathew and thinks her baseline is 2.1. She was at 2.3 at OSH. She took some diuretics at home and was given lasix at OSH ED. --UA, urine lytes --get records from her paper cutting machine operator to find out baseline --random tacro level --monitor Is & Os; avoid nephrotoxins Encounters Date Type Department Care Team Description 09/26/2024 Telephone [facility] at the [facility] Advanced Medicine [address] [place] [address] Advanced Medicine [address] [place] [address] Igor Graham MD Post-Op Call 09/25/2024 8:48 AM CDT - 09/25/2024 11:59 PM CDT Hospital Encounter [facility] at the [facility] Medicine [address] [place] [address] Advanced Medicine [address] [place] [address] Igor Graham MD Lumbar disc disease with radiculopathy (Primary Dx); Lumbar spondylosis Discharge Disposition: Discharge to home or self care 09/19/2024 Telephone [facility] at the [facility] Advanced Medicine [address] [place] [address] Advanced Medicine [address] [place] [id number] Igor Graham MD PMC Preprocedure 09/09/2024 SHOP/CHAP Initial Eligibility Review [facility] OP CASE MANAGEMENT [address] [place] [address] Shireen Griffin RN 08/31/2024 11:48 PM CDT - 09/06/2024 4:45 PM CDT Hospital Encounter [facility] [address] [place] [address] Elisha Avila MD Freilich, MD Vicente Aguirre, Britta Alarcon MD Abdominal pain (Primary Dx); Liver transplant failure and rejection (HCC); Rhinovirus infection Discharge Disposition: Discharge to home or self care 08/27/2024 Telephone [facility] [address] [facility] Advanced Medicine [address] [place] [address] Igor Graham MD Pre Procedure 08/15/2024 10:30 AM CDT Clinical Support [place] [id number] [facility] 1st [place] [address] Brielle Carrillo, PhD 08/15/2024 Results Follow-Up [facility] Transplant Liver [address] [place] [address] [address] [phone] [place] [address] Taylor Kitchen RN Surgical pathology 08/14/2024 12:21 PM CDT - 08/14/2024 11:59 PM CDT Hospital Encounter [facility] [address] [facility] [address] [place] [address] Igor Graham MD Lumbar spondylosis (Primary Dx); Lumbar disc disease with radiculopathy Discharge Disposition: Discharge to home or self care 08/02/2024 Orders Only [facility] [address] [place] [address] Beatriz Lee MD History of liver transplant (HCC); History of kidney transplant 08/01/2024 Telephone [facility] Transplant Liver [address] [phone] [place] [address] Misty Vail RN 07/29/2024 Telephone [facility] Transplant Liver [address] [facility] [address] [phone] [place] [address] Lorena Turner 07/26/2024 2:55 PM CDT - 07/26/2024 2:56 PM CDT Emergency [facility] Emergency Department [address] [place] [address] Discharge Disposition: Left without being seen 07/24/2024 10:00 AM CDT Office Visit [facility] Orthopaedic Surgery [address] [facility] Advanced Medicine 6th [place] [address] [place] [address] Jessee Morton MD Lumbar spine pain (Primary Dx); Adolescent idiopathic scoliosis of thoracic region; Chronic bilateral low back pain without sciatica 07/24/2024 9:45 AM CDT - 07/24/2024 11:59 PM CDT Hospital Encounter [facility] [address] [place] [address] Jessee Morton MD Lumbar spine pain; Adolescent idiopathic scoliosis of thoracic region Discharge Disposition: Discharge to home or self care 07/24/2024 Telephone [facility] Transplant Liver [address] [facility] [address] Mail[address] [phone] [place] [address] Lorena Turner 07/22/2024 Telephone [facility] Transplant Liver [address] [facility] [address] Mailstop [phone] [place] [address] Dafne Dukes RN 07/19/2024 Telephone [facility] Transplant Liver [address] [facility] [address] [phone] [place] [address] Karmen Garsia RN After Hours; Abdominal Pain from Last 3 Months Surgical History Surgery Date Site/Laterality Comments LA COLONOSCOPY FLX DX W/ROMAIN J SPEC WHEN [...] 0.6 oz pur e alcohol) rare [facility] Utilities Answer Date Recorded In the past 12 months has th e [employer], gas, oil, or water [employer] threatened to shut off services in your [...] week 09/03/2024 How often do you attend [facility] ch or amish services? Never 09/03/2024 Do you belong to any clubs o r organizations such as mormon groups, unions, fraternal or athletic groups, or [...] any time in the past 12 m [facility], were you homeless or living [...] on file Legal Sex Female 10:10 PM SWITCHBOARD OPERATOR SUPERVISOR Gender Identity Not on file Sexual [...] region HEPATITIS PANEL, ACUTE Routine 6:35 AM SWITCHBOARD OPERATOR SUPERVISOR from Last 3 Months or Most Recently Relevant to Health Maintenance Results * Imaging Lumbar/Sacral Facet Medial Branch Block Bilateral (27117) (09/25/2024 9:47 AM CDT) Narrative RAD_PACS_BJ - [...] ORDERABLES Aniya l Result [facility] [place] [address] * Tacrolimus level trough (09/06/2024 9:48 AM CDT) Tacrolimus trough 6.4 ng/mL Comment: Interpretive Data Testing performed by liquid chromatography-tandem mass spectrometry. Therapeutic concentrations vary depending on type of transplanted organ and time elapsed since transplant. Typical trough concentrations range from 5-15 ng/mL. This test was developed and its performance characteristics determined by the [facility] Laboratory consistent with CLIA requirements. This test has not been cleared or approved by the [place] Food and Drug administration. Current interpretive data last reviewed 2019. Blood 09/06/2024 9:48 AM CDT 09/06/2024 10:15 AM CDT Lily Rico MD LAB BLOOD ORDERABLES Final Result [facility] [place] [address] * (ABNORMAL) Comprehensive metabolic panel (09/06/2024 9:48 AM CDT) Sodium 139 135 - 145 mmol/L Potassium, pl 4.1 3.3 - 4.9 mmol/L [facility] Comment:Hemolyzed; Potassium value may be falsely elevated by as much as 0.3-0.5 mmol/L. Suggest redraw and reanalysis. Chloride 102 97 - 110 mmol/L [facility] CO2 26 22 - 32 mmol/L [facility] Anion gap 11 2 - 15 mmol/L [facility] BUN 24 6 - 25 mg/dL [facility] Creatinine 2.04(H) 0.60 - 1.10 mg/dL [facility] Glucose 167 70 - 199 mg/dL [facility] Comment: Interpretive Data Fasting glucose >/= [...] 2022. Calcium 8.8 8.5 - 10.3 mg/dL [facility] Bilirubin, total 0.6 0.1 - 1.2 mg/dL [facility] Protein, pl 6.1(L) 6.5 - 8.5 g/dL [facility] Albumin 3.5 3.5 - 5.0 g/dL [facility] Alk phos 241(H) 40 - 130 Units/L [facility] ALT 17 7 - 45 Units/L [facility] AST 41 10 - 45 Units/L [facility] Comment:Hemolyzed; result ma y be falsely elevated Blood 09/06/2024 9:48 AM CDT 09/06/2024 10:15 AM CDT Britta Zhang MD LAB BLOOD ORDERABLES Aniya l Result Performing Organization Address City/[facility]/ZIP Co de Phone Number [facility] [place] [address] * (ABNORMAL) eGFR (09/05/2024 10:47 AM CDT) Pathologist [facility] eGFR 24(L) >=60 mL/min/1. 73 m2 Comment: [...] ORDERABLES Aniya l Result Performing Organization Address City/[facility]/ZIP Co de Phone Number [facility] [place] [address] * Differential, auto (09/05/2024 10:47 AM CDT) Neutrophil abs 3.84 1.50 - 6.50 K/cumm Imm gran abs 0.03 0.00 - 0.10 K/cumm [facility] Lymphocyte abs 1.33 0.80 - 3.30 K/cumm [facility] Monocyte abs 0.30 0.20 - 0.80 K/cumm [facility] Eosinophil abs 0.15 0.00 - 0.50 K/cumm [facility] Basophil abs 0.01 0.00 - 0.10 K/cumm [facility] Neutrophil pct 67.8 % [facility] Comment: Interpretive Data Percent cell count reference ranges are not reported, since discordance with absolute values may lead to misinterpretation of CBC data. Current Interpretive Data was last revised on 2017. Imm gran pct 0.5 % [facility] Comment: Interpretive Data Percent cell count reference ranges are not reported, since discordance with absolute values may lead to misinterpretation of CBC data. Current Interpretive Data was last revised on 2017. Lymphocyte pct 23.5 % [facility] Comment: Interpretive Data Percent cell count reference ranges are not reported, since discordance with absolute values may lead to misinterpretation of CBC data. Current Interpretive Data was last revised on 2017. Monocyte pct 5.3 % [facility] Comment: Interpretive Data Percent cell count reference ranges are not reported, since discordance with absolute values may lead to misinterpretation of CBC data. Current Interpretive Data was last revised on 2017. Eosinophil pct 2.7 % [facility] Comment: Interpretive Data Percent cell count reference ranges are not reported, since discordance with absolute values may lead to misinterpretation of CBC data. Current Interpretive Data was last revised on 2017. Basophil pct 0.2 % [facility] Comment: Interpretive Data Percent cell count reference ranges are not reported, since discordance with absolute values may lead to misinterpretation of CBC data. Current Interpretive Data was last revised on 2017. Blood 09/05/2024 10:4 7 AM CDT 09/05/2024 11:03 AM CDT Britta Zhang MD LAB BLOOD ORDERABLES Aniya maguire Result Performing Organization Address [facility] Co de Phone Number [facility] [place] [address] * Tacrolimus level trough (09/05/2024 10:47 AM CDT) [facility] Tacrolimus trough 6.2 ng/mL Comment: Interpretive Data Testing performed by liquid chromatography-tandem mass spectrometry. Therapeutic concentrations vary depending on type of transplanted organ and time elapsed since transplant. Typical trough concentrations range from 5-15 ng/mL. This test was developed and its performance characteristics determined by the [facility] Laboratory consistent with CLIA requirements. This test has not been cleared or approved by the [place] Food and Drug administration. Current interpretive data last reviewed 2019. Blood 09/05/2024 10:4 7 AM CDT 09/05/2024 11:04 AM CDT Narrative [facility] - 09/05/2024 1:14 PM CDT Draw exactly 12 HOURS after last dose of tacrolimus was given and just BEFORE giving next dose Britta Zhang MD LAB BLOOD ORDERABLES Aniya l Result Performing Organization Address [facility] de Phone Number [facility] Department [place] [address] * (ABNORMAL) CBC with auto differential (09/05/2024 10:47 AM CDT) [facility] WBC 5.66 3.80 - 9.90 K/cumm Hgb 11.1(L) 11.9 - 15.5 g/dL [facility] Hct 31.6(L) 35.6 - 45.5 % [facility] Plt 115(L) 150 - 400 K/cumm [facility] MPV 11.4 9.1 - 12.3 fL [facility] RBC 2.81(L) 3.90 - 5.20 M/cumm [facility] MCV 112.5(H) 81.3 - 96.4 fL [facility] MCH 39.5(H) 27.1 - 33.3 pg [facility] MCHC 35.1 32.3 - 35.7 g/dL [facility] RDW CV 14.2 11.1 - 14.9 % [facility] RDW SD 59.0(H) 35.7 - 48.1 fL [facility] NRBC abs 0.00 0.00 - 0.01 K/cumm [facility] Blood 09/05/2024 10:4 7 AM CDT 09/05/2024 11:03 AM CDT Britta Zhang MD LAB BLOOD ORDERABLES Aniya maguire Result [facility] Department [place] [address] * (ABNORMAL) Comprehensive metabolic panel (09/05/2024 10:47 AM CDT) Sodium 143 135 - 145 mmol/L Potassium, pl 4.2 3.3 - 4.9 mmol/L [facility] Chloride 102 97 - 110 mmol/L [facility] CO2 28 22 - 32 mmol/L [facility] Anion gap 13 2 - 15 mmol/L [facility] BUN 28(H) 6 - 25 mg/dL [facility] Creatinine 2.49(H) 0.60 - 1.10 mg/dL [facility] Glucose 127 70 - 199 mg/dL [facility] Comment: Interpretive Data Fasting glucose >/= [...] 2022. Calcium 9.0 8.5 - 10.3 mg/dL [facility] Bilirubin, total 0.7 0.1 - 1.2 mg/dL [facility] Protein, pl 6.4(L) 6.5 - 8.5 g/dL [facility] Albumin 3.7 3.5 - 5.0 g/dL [facility] Alk phos 257(H) 40 - 130 Units/L [facility] ALT 18 7 - 45 Units/L [facility] AST 27 10 - 45 Units/L [facility] Blood 09/05/2024 10:4 7 AM CDT 09/05/2024 11:03 AM CDT us Britta Zhang MD LAB BLOOD ORDERABLES Aniya maguire Result [facility] [place] [address] * (ABNORMAL) eGFR (09/04/2024 5:03 AM CDT) [...] MD LAB BLOOD ORDERABLES Aniya maguire Result [facility] [place] [address] * Differential, auto (09/04/2024 5:03 AM CDT) Neutrophil abs 2.68 1.50 - 6.50 K/cumm Imm gran abs 0.01 0.00 - 0.10 K/cumm [facility] Lymphocyte abs 1.03 0.80 - 3.30 K/cumm [facility] Monocyte abs 0.23 0.20 - 0.80 K/cumm [facility] Eosinophil abs 0.09 0.00 - 0.50 K/cumm [facility] Basophil abs 0.00 0.00 - 0.10 K/cumm [facility] Neutrophil pct 66.4 % [facility] Comment: Interpretive Data Percent cell count reference ranges are not reported, since discordance with absolute values may lead to misinterpretation of CBC data. Current Interpretive Data was last revised on 2017. Imm gran pct 0.2 % [facility] Comment: Interpretive Data Percent cell count reference ranges are not reported, since discordance with absolute values may lead to misinterpretation of CBC data. Current Interpretive Data was last revised on 2017. Lymphocyte pct 25.5 % [facility] Comment: Interpretive Data Percent cell count reference ranges are not reported, since discordance with absolute values may lead to misinterpretation of CBC data. Current Interpretive Data was last revised on 2017. Monocyte pct 5.7 % [facility] Comment: Interpretive Data Percent cell count reference ranges are not reported, since discordance with absolute values may lead to misinterpretation of CBC data. Current Interpretive Data was last revised on 2017. Eosinophil pct 2.2 % [facility] Comment: Interpretive Data Percent cell count reference ranges are not reported, since discordance with absolute values may lead to misinterpretation of CBC data. Current Interpretive Data was last revised on 2017. Basophil pct 0.0 % [facility] Comment: Interpretive Data Percent cell count reference ranges are not reported, since discordance with absolute values may lead to misinterpretation of CBC data. Current Interpretive Data was last revised on 2017. Blood 09/04/2024 5:03 AM CDT 09/04/2024 5:10 AM CDT Result [facility] Britta Zhang MD LAB BLOOD ORDERABLES Aniya l Result Performing Organization Address City/[facility] Co de Phone Number [facility] [place] [address] * Tacrolimus level trough (09/04/2024 5:03 AM CDT) Pathologist [facility] Tacrolimus trough 10.9 ng/mL Comment: Interpretive Data Testing performed by liquid chromatography-tandem mass spectrometry. Therapeutic concentrations vary depending on type of transplanted organ and time elapsed since transplant. Typical trough concentrations range from 5-15 ng/mL. This test was developed and its performance characteristics determined by the [facility] consistent with CLIA requirements. This test has not been cleared or approved by the US Food and Drug administration. Current interpretive data last reviewed 2019. Blood 09/04/2024 5:03 AM CDT 09/04/2024 5:10 AM CDT Narrative [facility] - 09/04/2024 7:32 AM CDT Draw exactly 12 HOURS after last dose of tacrolimus was given and just BEFORE giving next dose Britta Zhang MD LAB BLOOD ORDERABLES Aniya l Result Performing Organization Address City/[facility] Co de Phone Number [facility] [place] [address] * (ABNORMAL) CBC with auto differential (09/04/2024 5:03 AM CDT) [facility] WBC 4.04 3.80 - 9.90 K/cumm Hgb 11.8(L) 11.9 - 15.5 g/dL [facility] Hct 32.9(L) 35.6 - 45.5 % [facility] Plt 66(L) 150 - 400 K/cumm [facility] MPV 12.0 9.1 - 12.3 fL [facility] RBC 2.96(L) 3.90 - 5.20 M/cumm [facility] MCV 111.1(H) 81.3 - 96.4 fL [facility] MCH 39.9(H) 27.1 - 33.3 pg [facility] MCHC 35.9(H) 32.3 - 35.7 g/dL [facility] RDW CV 14.0 11.1 - 14.9 % [facility] RDW SD 56.5(H) 35.7 - 48.1 fL [facility] NRBC abs 0.00 0.00 - 0.01 K/cumm [facility] Blood 09/04/2024 5:03 AM CDT 09/04/2024 5:10 AM CDT Britta Zhang MD LAB BLOOD ORDERABLES Aniya maguire Result [facility] [place] [address] * (ABNORMAL) Comprehensive metabolic panel (09/04/2024 5:03 AM CDT) Sodium 137 135 - 145 mmol/L Potassium, pl 4.2 3.3 - 4.9 mmol/L [facility] Chloride 100 97 - 110 mmol/L [facility] CO2 26 22 - 32 mmol/L [facility] Anion gap 11 2 - 15 mmol/L [facility] BUN 30(H) 6 - 25 mg/dL [facility] Creatinine 2.87(H) 0.60 - 1.10 mg/dL [facility] Glucose 153 70 - 199 mg/dL [facility] Comment: Interpretive Data Fasting glucose >/= [...] Calcium 8.5 8.5 - 10.3 mg/dL [facility] Bilirubin, total 0.8 0.1 - 1.2 mg/dL [facility] Protein, pl 6.6 6.5 - 8.5 g/dL [facility] Albumin 3.5 3.5 - 5.0 g/dL [facility] Alk phos 240(H) 40 - 130 Units/L [facility] ALT 12 7 - 45 Units/L [facility] AST 31 10 - 45 Units/L [facility] Blood 09/04/2024 5:03 AM CDT 09/04/2024 5:10 AM CDT Britta Zhang MD LAB BLOOD ORDERABLES Aniya l Result [facility] [place] [address] * (ABNORMAL) eGFR (09/03/2024 5:21 AM CDT) [...] MD LAB BLOOD ORDERABLES Aniya andrez Result [facility] [place] [address] * Differential, auto (09/03/2024 5:21 AM CDT) Pathologist [facility] Neutrophil abs 3.79 1.50 - 6.50 K/cumm Imm gran abs 0.03 0.00 - 0.10 K/cumm [facility] Lymphocyte abs 0.84 0.80 - 3.30 K/cumm [facility] Monocyte abs 0.25 0.20 - 0.80 K/cumm [facility] Eosinophil abs 0.05 0.00 - 0.50 K/cumm [facility] Basophil abs 0.00 0.00 - 0.10 K/cumm [facility] Neutrophil pct 76.5 % [facility] Comment: Interpretive Data Percent cell count reference ranges are not reported, since discordance with absolute values may lead to misinterpretation of CBC data. Current Interpretive Data was last revised on 2017. Imm gran pct 0.6 % [facility] Comment: Interpretive Data Percent cell count reference ranges are not reported, since discordance with absolute values may lead to misinterpretation of CBC data. Current Interpretive Data was last revised on 2017. Lymphocyte pct 16.9 % [facility] Comment: Interpretive Data Percent cell count reference ranges are not reported, since discordance with absolute values may lead to misinterpretation of CBC data. Current Interpretive Data was last revised on 2017. Monocyte pct 5.0 % [facility] Comment: Interpretive Data Percent cell count reference ranges are not reported, since discordance with absolute values may lead to misinterpretation of CBC data. Current Interpretive Data was last revised on 2017. Eosinophil pct 1.0 % [facility] Comment: Interpretive Data Percent cell count reference ranges are not reported, since discordance with absolute values may lead to misinterpretation of CBC data. Current Interpretive Data was last revised on 2017. Basophil pct 0.0 % [facility] Comment: Interpretive Data Percent cell count reference ranges are not reported, since discordance with absolute values may lead to misinterpretation of CBC data. Current Interpretive Data was last revised on 2017. Blood 09/03/2024 5:21 AM CDT 09/03/2024 5:31 AM CDT Britta Zhang MD LAB BLOOD ORDERABLES Aniya l Result Performing Organization Address [facility] Co de Phone Number [facility] [place] [address] * Tacrolimus level trough (09/03/2024 5:21 AM CDT) [facility] Signature Tacrolimus trough 17.8 ng/mL Comment: Interpretive Data Testing performed by liquid chromatography-tandem mass spectrometry. Therapeutic concentrations vary depending on type of transplanted organ and time elapsed since transplant. Typical trough concentrations range from 5-15 ng/mL. This test was developed and its performance characteristics determined by the [facility] consistent with CLIA requirements. This test has not been cleared or approved by the US Food and Drug administration. Current interpretive data last reviewed 2019. Blood 09/03/2024 5:21 AM CDT 09/03/2024 5:31 AM CDT Narrative [facility] - 09/03/2024 9:19 AM CDT Draw exactly 12 HOURS after last dose of tacrolimus was given and just BEFORE giving next dose Britta Zhang MD LAB BLOOD ORDERABLES Aniya l Result Performing Organization Address [facility] Co de Phone Number [facility] [place] [address] * (ABNORMAL) CBC with auto differential (09/03/2024 5:21 AM CDT) [facility] WBC 4.96 3.80 - 9.90 K/cumm Hgb 11.3(L) 11.9 - 15.5 g/dL [facility] Hct 30.7(L) 35.6 - 45.5 % [facility] Plt 83(L) 150 - 400 K/cumm [facility] MPV 11.0 9.1 - 12.3 fL [facility] RBC 2.84(L) 3.90 - 5.20 M/cumm [facility] MCV 108.1(H) 81.3 - 96.4 fL [facility] MCH 39.8(H) 27.1 - 33.3 pg [facility] MCHC 36.8(H) 32.3 - 35.7 g/dL [facility] RDW CV 13.9 11.1 - 14.9 % [facility] RDW SD 54.4(H) 35.7 - 48.1 fL [facility] NRBC abs 0.00 0.00 - 0.01 K/cumm [facility] Blood 09/03/2024 5:21 AM CDT 09/03/2024 5:31 AM CDT Britta Zhang MD LAB BLOOD ORDERABLES Aniya maguire Result [facility] [place] [address] * (ABNORMAL) Comprehensive metabolic panel (09/03/2024 5:21 AM CDT) [facility] Sodium 138 135 - 145 mmol/L Potassium, pl 4.7 3.3 - 4.9 mmol/L [facility] Chloride 101 97 - 110 mmol/L [facility] CO2 29 22 - 32 mmol/L [facility] Anion gap 8 2 - 15 mmol/L [facility] BUN 29(H) 6 - 25 mg/dL [facility] Creatinine 2.92(H) 0.60 - 1.10 mg/dL [facility] Glucose 113 70 - 199 mg/dL [facility] Comment: Interpretive Data Fasting glucose >/= [...] 2022. Calcium 9.2 8.5 - 10.3 mg/dL [facility] Bilirubin, total 1.1 0.1 - 1.2 mg/dL [facility] Protein, pl 6.2(L) 6.5 - 8.5 g/dL [facility] Albumin 3.4(L) 3.5 - 5.0 g/dL [facility] Alk phos 233(H) 40 - 130 Units/L [facility] ALT 13 7 - 45 Units/L [facility] AST 22 10 - 45 Units/L [facility] Blood 09/03/2024 5:21 AM CDT 09/03/2024 5:31 AM CDT Britta Zhang MD LAB BLOOD ORDERABLES Aniya maguire Result [facility] [place] [address] * BK virus PCR quantitative Blood (09/02/2024 12:21 PM CDT) [facility] BKV DNA result, pl Not Detected [facility] Comment: The quantifiable range of this assay is 21.5 IU/mL to 100,000,000 IU/mL (1.33 log IU/mL to 8.00 log IU/mL). Testing was performed by the JOHNNY 6800 BKV Quantatitive Test version 2.0 ([employer] Testing performed at [facility] Current Interpretive Data was last revised on 2021. Blood 09/02/2024 12:2 1 PM CDT 09/02/2024 12:52 PM CDT Britta Zhang MD LAB MICROBIOLOGY - GENERA L ORDERABLES Final Result Performing Organization Address City/[facility]/ZIP Co de Phone Number [facility] [place] [address] [facility] * HLA Donor Specific Antibody Report (09/02/2024 12:21 PM CDT) Britta Zhang MD LAB BLOOD ORDERABLES Aniya l Result * HLA Antibody Screen - DSA (Class I and Class II) (09/02/2024 12:21 PM CDT) Blood 09/02/2024 12:2 1 PM CDT 09/03/2024 11:27 AM CDT Narrative [facility] - 09/03/2024 11:27 AM CDT Britta Zhang MD LAB BLOOD ORDERABLES Aniya l Result Performing Organization Address City/[facility]/ZIP Co de Phone Number [facility] * Collection Task for HLA Antibody Screen (09/02/2024 12:21 PM CDT) HLA Antibody Screen By Single Antigen Received Blood 09/02/2024 12:2 1 PM CDT 09/03/2024 10:59 AM CDT Britta Zhang MD LAB BLOOD ORDERABLES Aniya l Result [facility] [place] [address] * Cytomegalovirus (CMV) DNA PCR, quantitative Blood (09/02/2024 12:21 PM CDT) CMV DNA Not Detected [facility] Comment: Interpretive Data: The quantifiable range of this assay is 34 IUnits/mL to 10,000,000 IUnits/mL (1.53 log IUnits/mL to 7.0 log IUnits/mL). Testing was performed by the JOHNNY 6800 CMV Test ([employer] Testing performed at [facility]. Current interpretive data was last revised on 2020. Blood 09/02/2024 12:2 1 PM CDT 09/02/2024 12:52 PM CDT us Britta Zhang MD LAB MICROBIOLOGY - GENERA L ORDERABLES Final Result Performing Organization Address [facility]/ZIP Co de Phone Number [facility] [place] [address] [facility] * (ABNORMAL) eGFR (09/02/2024 12:21 PM CDT) Pathologist [facility] eGFR 20(L) >=60 mL/min/1. 73 m2 Comment: [...] BLOOD ORDERABLES Aniya l Result [facility] Marley [facility] [place] [address] * Blood culture Blood (09/02/2024 12:21 PM [...] performance characteristics have been verified by the [facility]biology [facility]. For questions about this culture, contact the Microbiology Laboratory at [phone]. Interpretive data was last revised on 24. us Britta Zhang MD LAB MICROBIOLOGY - GENERA L ORDERABLES Final Result [facility] RAIN Donell [facility] [place] [address] * Blood culture Blood (09/02/2024 12:21 PM CDT) Report Final Report: No growth Blood 09/02/2024 12:2 1 PM CDT 09/02/2024 1:40 PM CDT Narrative [facility] - 09/06/2024 4:00 PM CDT Collection->Peripheral [...] performance characteristics have been verified by the [facility]. For questions about this culture, contact the Microbiology Laboratory at [phone]. Interpretive data was last revised on 24. Britta Zhang MD LAB MICROBIOLOGY - GENERA L ORDERABLES Final Result [facility] [place] [address] * (ABNORMAL) Renal function panel (09/02/2024 12:21 PM CDT) Sodium 137 135 - 145 mmol/L Potassium, pl 3.9 3.3 - 4.9 mmol/L [facility] Chloride 97 97 - 110 mmol/L [facility] CO2 31 22 - 32 mmol/L [facility] Anion gap 9 2 - 15 mmol/L [facility] BUN 28(H) 6 - 25 mg/dL [facility] Creatinine 2.89(H) 0.60 - 1.10 mg/dL [facility] Glucose 162 70 - 199 mg/dL [facility] Comment: Interpretive Data Fasting glucose >/= [...] 2022. Calcium 9.7 8.5 - 10.3 mg/dL [facility] Phosphorus, pl 4.1 2.3 - 4.5 mg/dL [facility] Albumin 3.5 3.5 - 5.0 g/dL [facility] Blood 09/02/2024 12:2 1 PM CDT 09/02/2024 12:42 PM CDT Britta Zhang MD LAB BLOOD ORDERABLES Aniya l Result [facility] [place] [address] * (ABNORMAL) eGFR (09/02/2024 5:16 AM CDT) Pathologist [facility] eGFR 19(L) >=60 mL/min/1. 73 m2 Comment: [...] Valiente MD LAB BLOOD ORDERABLES Final Result [facility] [place] [address] * Differential, auto (09/02/2024 5:16 AM CDT) Neutrophil abs 3.97 1.50 - 6.50 K/cumm Imm gran abs 0.02 0.00 - 0.10 K/cumm [facility] Lymphocyte abs 1.10 0.80 - 3.30 K/cumm [facility] Monocyte abs 0.24 0.20 - 0.80 K/cumm [facility] Eosinophil abs 0.11 0.00 - 0.50 K/cumm [facility] Basophil abs 0.01 0.00 - 0.10 K/cumm [facility] Neutrophil pct 72.8 % [facility] Comment: Interpretive Data Percent cell count reference ranges are not reported, since discordance with absolute values may lead to misinterpretation of CBC data. Current Interpretive Data was last revised on 2017. Imm gran pct 0.4 % [facility] Comment: Interpretive Data Percent cell count reference ranges are not reported, since discordance with absolute values may lead to misinterpretation of CBC data. Current Interpretive Data was last revised on 2017. Lymphocyte pct 20.2 % [facility] Comment: Interpretive Data Percent cell count reference ranges are not reported, since discordance with absolute values may lead to misinterpretation of CBC data. Current Interpretive Data was last revised on 2017. Monocyte pct 4.4 % [facility] Comment: Interpretive Data Percent cell count reference ranges are not reported, since discordance with absolute values may lead to misinterpretation of CBC data. Current Interpretive Data was last revised on 2017. Eosinophil pct 2.0 % [facility] Comment: Interpretive Data Percent cell count reference ranges are not reported, since discordance with absolute values may lead to misinterpretation of CBC data. Current Interpretive Data was last revised on 2017. Basophil pct 0.2 % [facility] Comment: Interpretive Data Percent cell count reference ranges are not reported, since discordance with absolute values may lead to misinterpretation of CBC data. Current Interpretive Data was last revised on 2017. Blood 09/02/2024 5:16 AM CDT 09/02/2024 5:32 AM CDT Bailee Valiente MD LAB BLOOD ORDERABLES Final Result Performing Organization Address [facility] Co de Phone Number [facility] [place] [address] * Tacrolimus level trough (09/02/2024 5:16 AM CDT) Pathologist [facility] Tacrolimus trough 17.0 ng/mL Comment: Interpretive Data Testing performed by liquid chromatography-tandem mass spectrometry. Therapeutic concentrations vary depending on type of transplanted organ and time elapsed since transplant. Typical trough concentrations range from 5-15 ng/mL. This test was developed and its performance characteristics determined by the [facility] consistent with CLIA requirements. This test has not been cleared or approved by the [place] Food and Drug administration. Current interpretive data last reviewed 2019. Blood 09/02/2024 5:16 AM CDT 09/02/2024 5:32 AM CDT us Britta Zhang MD LAB BLOOD ORDERABLES Aniya l Result Performing Organization Address City/[facility] Co de Phone Number [facility] [place] [address] * (ABNORMAL) CBC with auto differential (09/02/2024 5:16 AM CDT) Pathologist [facility] WBC 5.45 3.80 - 9.90 K/cumm Hgb 11.7(L) 11.9 - 15.5 g/dL [facility] Hct 32.3(L) 35.6 - 45.5 % [facility] Plt 98(L) 150 - 400 K/cumm [facility] MPV 11.4 9.1 - 12.3 fL [facility] RBC 2.95(L) 3.90 - 5.20 M/cumm [facility] MCV 109.5(H) 81.3 - 96.4 fL [facility] MCH 39.7(H) 27.1 - 33.3 pg [facility] MCHC 36.2(H) 32.3 - 35.7 g/dL [facility] RDW CV 13.9 11.1 - 14.9 % [facility] RDW SD 56.6(H) 35.7 - 48.1 fL [facility] NRBC abs 0.00 0.00 - 0.01 K/cumm [facility] Blood 09/02/2024 5:16 AM CDT 09/02/2024 5:32 AM CDT us Bailee Valiente MD LAB BLOOD ORDERABLES Final Result [facility] [place] [address] * (ABNORMAL) Comprehensive metabolic panel (09/02/2024 5:16 AM CDT) Sodium 137 135 - 145 mmol/L Potassium, pl 4.1 3.3 - 4.9 mmol/L [facility] Chloride 98 97 - 110 mmol/L [facility] CO2 32 22 - 32 mmol/L [facility] Anion gap 7 2 - 15 mmol/L [facility] BUN 29(H) 6 - 25 mg/dL [facility] Creatinine 3.05(H) 0.60 - 1.10 mg/dL [facility] Glucose 185 70 - 199 mg/dL [facility] Comment: Interpretive Data Fasting glucose >/= [...] Calcium 9.0 8.5 - 10.3 mg/dL [facility] Bilirubin, total 1.0 0.1 - 1.2 mg/dL [facility] Protein, pl 6.3(L) 6.5 - 8.5 g/dL [facility] Albumin 3.8 3.5 - 5.0 g/dL [facility] Alk phos 223(H) 40 - 130 Units/L [facility] ALT 11 7 - 45 Units/L [facility] AST 24 10 - 45 Units/L [facility] Blood 09/02/2024 5:16 AM CDT 09/02/2024 5:32 AM CDT us Bailee Valiente MD LAB BLOOD ORDERABLES Final Result [facility] [place] [address] * Troponin I high-sensitivity 2-hour (09/01/2024 2:58 AM CDT) Trop I hs 5 <=17 ng/L Comment: Interpretive Data For further hscTnI resources including the diagnostic algorithm and an aid in interpretation, copy and paste this link: [email or web address].[email or web address]/[email or web address] Current Interpretive Data last revised 2019. Trop I hs delta 0 ng/L [facility] Trop I hs interp Insignificant [facility] Blood 09/01/2024 2:58 AM CDT 09/01/2024 3:13 AM CDT us Diana Cassidy MD LAB BLOOD ORDERABLES Fi nal Result Performing Organization Address City/[facility]/ZIP Co de Phone Number [facility] [place] [address] * ECG 12-LEAD (09/01/2024 2:53 AM CDT) Narrative [facility] - 09/01/2024 2:53 AM CDT Elisha Avila MD 09/01/2024 3:24 AM ECG 12 lead Date/Time: 09/01/2024 2:53 AM Performed by: Elisha Avila MD Authorized by: Diana Cassidy MD Diana Cassidy MD ECG ORDERABLES Final R esult Performing Organization Address [facility] Co de Phone Number [facility] * XR Chest PA Lateral 2 [...] culture Blood (09/01/2024 2:18 AM CDT) Pathologist [facility] Direct Specimen Exam Molecular Analysis: Staphylococcus epidermidis (methicillin-resis tant) detected by [facility] BCID-GP panel. Single positive culture may represent contamination. This test does not exclude the possibility of a mixed bacterial infection. Notification of: Staphylococcus epidermidis (methicillin-resis tant) called to and read back by: Flower Moser MD ([phone]) on 09/02/2024 03:01:57 by: Radu Helm MT Direct Specimen Exam Stain: Gram Positive Cocci in clusters Time to culture positivity (anaerobic media): 21.4 hours Notification of: Gram Positive Cocci in clusters called to and read back by: Flower Moser MD ([phone]) on 09/02/2024 01:01:22 by: Radu Helm MT [facility] Report Final Report: Staphylococcus epidermidis Single blood culture positive for this microorganism. Isolate is a possible contaminant. If a similar isolate is recovered from a second blood culture collected within 3 days of this culture, both will be evaluated and, if determined to be the same species, antimicrobial susceptibility testing will be performed. (.) [facility] Organism STAPHYLOCOCCUS EPIDERMIDIS [facility] Blood 09/01/2024 2:18 AM CDT 09/01/2024 2:43 AM CDT Narrative [facility] - 09/06/2024 12:48 PM CDT From [...] performance characteristics have been verified by the [facility] Microbiology Laboratory. For questions about this culture, contact the Microbiology Laboratory at [phone]. Interpretive data was last revised on 24. us Diana Cassidy MD LAB MICROBIOLOGY - GENE RAL ORDERABLES Final Result ALEK RAIN [facility] [place] [address] * US Renal Transplant W Dopplers (09/01/2024 [...] patent. There is no thrombosis. Procedure Note oSto Mena MD PhD - 09/01/2024 EXAMINATION: RENAL [...] Soto Mena M.D., Ph.D Diana Cassidy MD [facility] US PROCEDURES Final Result * (ABNORMAL) Respiratory pathogen panel Nasopharyngeal (09/01/2024 12:58 AM CDT) Influenza A RNA Not Detected Not Detected Influenza B RNA Not Detected Not Detected [facility] RSV RNA Not Detected Not Detected [facility] COVID-19 RNA Not Detected Not Detected [facility] Coronavirus 229E RNA Not Detected Not Detected [facility] Coronavirus HKU1 RNA Not Detected Not Detected [facility] Coronavirus NL63 RNA Not Detected Not Detected [facility] Coronavirus OC43 RNA Not Detected Not Detected [facility] Adenovirus DNA Not Detected Not Detected [facility] Metapneumovirus RNA Not Detected Not Detected [facility] Rhinovirus/Enterov irus RNA Detected(A) Not Detected [facility] Parainfluenza 1 RNA Not Detected Not Detected [facility] Parainfluenza 2 RNA Not Detected Not Detected [facility] Parainfluenza 3 RNA Not Detected Not Detected [facility] Parainfluenza 4 RNA Not Detected Not Detected [facility] B. pertussis DNA Not Detected Not Detected [facility] B. parapertussis DNA Not Detected Not Detected [facility] C. pneumoniae DNA Not Detected Not Detected [facility] M. pneumoniae DNA Not Detected Not Detected [facility] Nasopharyngeal 09/01/2024 12 :58 AM CDT 09/01/2024 2:52 AM CDT Narrative [facility] - 09/01/2024 3:48 AM CDT Is the Patient experiencing symptoms consistent with COVID?->Yes Surveillance testing for transplant patient?->No Interpretive Data The Borqs FilmArray Respiratory Panel (RP2.1) assay is a [...] assay has FDA clearance for testing of CONSTRUCTION DRILLER swabs. The performance of additional specimen types has been assessed by the performing laboratory. The performance characteristics of this assay have been determined by [facility] Molecular Infectious Disease Laboratory. Current interpretive data was last revised on 21. Diana Cassidy MD LAB MICROBIOLOGY - GENE RAL ORDERABLES Final Result ALEK [facility] [place] [address] * Troponin I high-sensitivity series (baseline, 2hr, [...] ORDERABLES Fi nal Result Performing Organization Address City/[facility]/ZIP Co de Phone Number [facility] [place] [address] * Sepsis Lactate w/ Reflex (09/01/2024 12:57 AM CDT) Sepsis Lactate 1.8 0.7 - 2.0 mmol/L Blood 09/01/2024 12:5 7 AM CDT 09/01/2024 1:14 AM CDT Diana Cassidy MD LAB BLOOD ORDERABLES [place] [address] * (ABNORMAL) eGFR (09/01/2024 12:57 AM CDT) [...] LAB BLOOD ORDERABLES Fi nal Result ALEK [facility] [place] [address] * Differential, auto (09/01/2024 12:57 AM CDT) Neutrophil abs 4.42 1.50 - 6.50 K/cumm Imm gran abs 0.03 0.00 - 0.10 K/cumm [facility] Lymphocyte abs 1.17 0.80 - 3.30 K/cumm [facility] Monocyte abs 0.38 0.20 - 0.80 K/cumm [facility] Eosinophil abs 0.10 0.00 - 0.50 K/cumm [facility] Basophil abs 0.02 0.00 - 0.10 K/cumm [facility] Neutrophil pct 72.3 % [facility] Comment: Interpretive Data Percent cell count reference ranges are not reported, since discordance with absolute values may lead to misinterpretation of CBC data. Current Interpretive Data was last revised on 2017. Imm gran pct 0.5 % [facility] Comment: Interpretive Data Percent cell count reference ranges are not reported, since discordance with absolute values may lead to misinterpretation of CBC data. Current Interpretive Data was last revised on 2017. Lymphocyte pct 19.1 % [facility] Comment: Interpretive Data Percent cell count reference ranges are not reported, since discordance with absolute values may lead to misinterpretation of CBC data. Current Interpretive Data was last revised on 2017. Monocyte pct 6.2 % [facility] Comment: Interpretive Data Percent cell count reference ranges are not reported, since discordance with absolute values may lead to misinterpretation of CBC data. Current Interpretive Data was last revised on 2017. Eosinophil pct 1.6 % [facility] Comment: Interpretive Data Percent cell count reference ranges are not reported, since discordance with absolute values may lead to misinterpretation of CBC data. Current Interpretive Data was last revised on 2017. Basophil pct 0.3 % [facility] Comment: Interpretive Data Percent cell count reference ranges are not reported, since discordance with absolute values may lead to misinterpretation of CBC data. Current Interpretive Data was last revised on 2017. Blood 09/01/2024 12:5 7 AM CDT 09/01/2024 1:20 AM CDT Diana Cassidy MD LAB BLOOD ORDERABLES Fi nal Result Performing Organization Address City/[facility]/ZIP Co de Phone Number ALEK [facility] [place] [address] * (ABNORMAL) Urinalysis reflex to microscopic and culture Urine, bladder (09/01/2024 12:57 AM CDT) Color, ur Yellow Yellow Clarity, ur Clear Clear [facility] Specific gravity, ur 1.020 1.003 - 1.030 [facility] pH, urine 5.5 [facility] Comment: Interpretive Data U rine pH is affected by diet, medications, systemic acid-base disturbances, and renal tubular function. pH may affect urinary stone formation. For example, urine pH below 6.0 may help reduce the tendency for calcium phosphate stones and pH greater than 6.0 may reduce the tendency for uric acid stone formation. Source: [facility] Current Interpretive Data was last revised on 2017 Protein, ur ql Trace Negative [facility] Glucose, ur ql Negative Negative [facility] Ketones, ur Trace Negative [facility] Bilirubin, ur Negative Negative [facility] Blood, ur Negative Negative [facility] Urobilinogen, ur 2.0(A) <2.0 mg/dL [facility] Nitrite, ur Negative Negative [facility] Leukocyte esterase, ur Negative Negative [facility] UA reflex comment Reflex conditions for microscopic UA and culture not met. [facility] Urine, bladder 09/01/2024 12 :57 AM CDT 09/01/2024 1:14 AM CDT Diana Cassidy MD LAB MICROBIOLOGY - GENE RAL ORDERABLES Final Result Performing Organization Address City/[facility]/ZIP Co de Phone Number ALEK [facility] [place] [address] * (ABNORMAL) CBC with auto differential (09/01/2024 12:57 AM CDT) WBC 6.12 3.80 - 9.90 K/cumm Hgb 12.7 11.9 - 15.5 g/dL [facility] Hct 35.2(L) 35.6 - 45.5 % [facility] Plt 115(L) 150 - 400 K/cumm [facility] MPV 11.0 9.1 - 12.3 fL [facility] RBC 3.20(L) 3.90 - 5.20 M/cumm [facility] MCV 110.0(H) 81.3 - 96.4 fL [facility] MCH 39.7(H) 27.1 - 33.3 pg [facility] MCHC 36.1(H) 32.3 - 35.7 g/dL [facility] RDW CV 14.2 11.1 - 14.9 % [facility] RDW SD 57.3(H) 35.7 - 48.1 fL [facility] NRBC abs 0.00 0.00 - 0.01 K/cumm [facility] Blood 09/01/2024 12:5 7 AM CDT 09/01/2024 1:20 AM CDT Diana Cassidy MD LAB BLOOD ORDERABLES nal Result [facility] [place] [address] * Tacrolimus level random (09/01/2024 12:57 AM CDT) Pathologist [facility] Tacrolimus random 23.8 ng/mL Comment: Interpretive Data Testing performed by liquid chromatography-tandem mass spectrometry. Therapeutic concentrations vary depending on type of transplanted organ and time elapsed since transplant. Typical trough concentrations range from 5-15 ng/mL. This test was developed and its performance characteristics determined by the [facility] Laboratory consistent with CLIA requirements. This test has not been cleared or approved by the US Food and Drug administration. Current interpretive data last reviewed 2019. Blood 09/01/2024 12:5 7 AM CDT 09/01/2024 1:20 AM CDT Diana Cassidy MD LAB BLOOD ORDERABLES Fi nal Result ALEK RAIN [facility] [place] [address] * Blood culture Blood (09/01/2024 12:57 AM CDT) Report Final Report: No growth Blood 09/01/2024 12:5 7 AM CDT 09/01/2024 1:35 AM CDT Narrative ALEK [facility] - 09/05/2024 7:00 AM CDT Collection->Peripheral 1. [...] performance characteristics have been verified by the [facility] Microbiology Laboratory. For questions about this culture, contact the Microbiology Laboratory at [phone]. Interpretive data was last revised on 24. us Diana Cassidy MD LAB MICROBIOLOGY - GENE RAL ORDERABLES Final Result Performing Organization Address City/[facility]/ZIP Co de Phone Number ALEK RAIN [facility] [place] [address] * Phosphorus (09/01/2024 12:57 AM CDT) [facility] Phosphorus, pl 2.9 2.3 - 4.5 mg/dL Blood 09/01/2024 12:5 7 AM CDT 09/01/2024 1:20 AM CDT iDana Cassidy MD LAB BLOOD ORDERABLES Fi nal Result Performing Organization Address City/[facility] Co de Phone Number [facility] [place] [address] * Magnesium (09/01/2024 12:57 AM CDT) [facility] Magnesium 1.5 1.4 - 2.5 mg/dL Blood 09/01/2024 12:5 7 AM CDT 09/01/2024 1:20 AM CDT Diana Cassidy MD LAB BLOOD ORDERABLES Fi nal Result Performing Organization Address [facility] de Phone Number [facility] [place] [address] * Lipase (09/01/2024 12:57 AM CDT) [facility] Lipase 19 10 - 99 Units/L Blood 09/01/2024 12:5 7 AM CDT 09/01/2024 1:20 AM CDT Diana Cassidy MD LAB BLOOD ORDERABLES Fi nal Result Performing Organization Address [facility] de Phone Number [facility] [place] [address] * (ABNORMAL) Comprehensive metabolic panel (09/01/2024 12:57 AM CDT) [facility] Sodium 138 135 - 145 mmol/L Potassium, pl 4.5 3.3 - 4.9 mmol/L [facility] Comment:Hemolyzed; Potassium value may be falsely elevated by as much as 0.3-0.5 mmol/L. Suggest redraw and reanalysis. Chloride 105 97 - 110 mmol/L [facility] CO2 24 22 - 32 mmol/L [facility] Anion gap 9 2 - 15 mmol/L [facility] BUN 21 6 - 25 mg/dL [facility] Creatinine 2.34(H) 0.60 - 1.10 mg/dL [facility] Glucose 89 70 - 199 mg/dL [facility] Comment: Interpretive Data Fasting glucose >/= [...] 2022. Calcium 8.7 8.5 - 10.3 mg/dL [facility] Bilirubin, total 1.1 0.1 - 1.2 mg/dL [facility] Protein, pl 7.1 6.5 - 8.5 g/dL [facility] Albumin 3.9 3.5 - 5.0 g/dL [facility] Alk phos 257(H) 40 - 130 Units/L [facility] ALT 14 7 - 45 Units/L [facility] AST 37 10 - 45 Units/L [facility] Comment:Hemolyzed; result ma y be falsely elevated Blood 09/01/2024 12:5 7 AM CDT 09/01/2024 1:20 AM CDT Diana Cassidy MD LAB BLOOD ORDERABLES Fi nal Result [facility] [place] [address] * Surgical pathology (08/02/2024 9:18 AM CDT) Tissue (Miscellaneous) 08/02/2024 9:18 AM CDT 08/02/2024 9:18 AM CDT Narrative [facility] PATHOLOGY LAB - 08/14/2024 2:01 PM CDT EPIC results best viewed via link to PDF [facility] Pathology Consult Service lAan De La [address]re, [address], [place] [address] Note to Patients: This report [...] SURGICAL PATHOLOGY REPORT * Consult Report * [facility] is providing an additional review of previously collected tissue. FINAL Patient Name: MISHA BROWNE Address: [address] [place] [address] Gender: F : 1980 (Age: 43) [facility] #: [id number] Patient Type: [facility] Location: UNKNOWN Taken: 08/02/2024 Received: 08/02/2024 Accessioned: 08/05/2024 Reported: 08/14/2024 Physician(s): Beatriz Lee M.D. [facility] Department of Pathology [address] [place] [address] P: [phone] F: [phone] Diagnosis: Consult material received from [place], [place] (OSC: [id number]; 11/17/2023) A. 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 Liver, allograft, approximately 3 years [...] 14:01:19 Diagnosis Comment Consult material received from [facility], [place], [place] (OSC: [id number]; 11/17/2023) Per chart review patient had a OLT in 1992 then a combined liver and kidney transplant at [place] on 04/2020. Course was complicated by biopsy [...] show moderate inflammatory infiltrate. There is patchy pwdv-[id number] tubulitis. Small arteries and arterioles show mild [...] Received for review are ten slides labeled [id number], and nine slides labeled [id number], accompanied by a corresponding pathology report. The material originates from [facility], [place], [place]. Selected slide(s) may be digitally scanned [...] occasional mononuclear cells Arteriolar hyalinosis (ah): ah1 [id number] PAS-positive hyaline thickening in at least one [...] the Department of Pathology and Immunology at [facility], [address] [place] [id number] CLIA # [id number] The performance characteristics of the testing cited in this report (if any) were determined by the [facility] Department of Pathology and Immunology [facility], as part of an ongoing quality process auditor program and in compliance with federally mandated [...] the performance characteristics determined by the [facility], [facility] Department of Pathology and Immunology. It has not been cleared or approved by the U.S. Food and Drug Administration. Any test designated as LDT was developed and its performance characteristics determined by [facility]. It has not been cleared or approved by the FDA. This test is used for clinical purposes and should not be regarded as investigational or for research. Report images and/or scanned reports, if included, only viewable in PDF version of report. us Beatriz Lee MD LAB PATHOLOGY ORDERA BLES Final Result [facility] PATH[facility]Y LAB [address] [address] * XR Scoliosis 6 or More Views [...] * Hepatitis panel, acute (04/16/2020 6:35 AM SWITCHBOARD OPERATOR SUPERVISOR) Hep A IgM Nonreactive Nonreactive [facility] Comment: Interpretive Data: If Hep A IgM Ab is reported as Equivocal, a new sample should be drawn in two weeks for testing. Current interpretive data was last revised on 19. Hep B core IgM Nonreactive Nonreactive [facility] Comment: Interpretive Data If HepB Core IgM Ab is reported as Equivocal, a new sample should be drawn in two weeks for testing. Current interpretive data was last revised on 19. Hep C Ab Nonreactive Nonreactive [facility] Comment:Antibodies to HCV no t detected. Does NOT exclude the possibility of recent exposure to HCV. HepBsAg Nonreactive Nonreactive [facility] Blood specimen (specimen) 04/16/2020 6:35 AM SWITCHBOARD OPERATOR SUPERVISOR 04/16/2020 7:34 AM SWITCHBOARD OPERATOR SUPERVISOR us Jacob Gates MD LAB MICROBIOLOGY - GENER AL ORDERABLES Final Result [facility] Department [place] [address] from Last 3 Months or Most Recently Relevant to Health Maintenance Insurance [employer] OPEN ACCESS [facility] PLAN [employer] OPEN ACCESS [facility] EXCHANGE IDPA Advance Directives For more information, please contact: [phone] * Full Code (Latest Code Status on [...] 6:15 AM 07/25/2019 11:51 PM Care Teams In Mold Coater Relationship Specialty Start Date End Date Lyly Fiore NP [address] [place] [address] PCP - General Nurse Practitioner 05/29/24 Beatriz Lee MD [address] [place] [address] Referring Physician Gastroenterology 07/25/19 Taylor Kitchen, gardener floristAmpoule Filler And Sealer 05/29/24
--- OUTSIDE RECORDS SUMMARY | 2024-10-19 22:46 | XMS_ITS | Encounter Summary ---
Author Organization [facility] Address [address] [place] [address] Care Team Providers Care Front Desk Admin Name Role Phone Hermes Ramirez MD Primary Care Provider Reason for Visit * Reason Onset Date Comments Refill Request 04/01/2021 Encounter Details Date Type Department Care Team (Late st Contact Info) Description 04/01/2021 Refill [place] [facility] [address] [facility] [address] [place] [address] Lyly Mccollum MD [address] [facility] [address] [place] [address] Refill Request Social History Tobacco [...] on file Legal Sex Female 1:03 PM CENTRAL SUPPLY TECH Gender Identity Not on file Sexual Orientation Not on file COVID-19 Exposure Response Date Recorded In the last month, have you been in contact with someone who was confirmed or suspected to have Coronavirus / COVID-19? No / Unsure 03/02/2021 2:55 PM CENTRAL SUPPLY TECH documented as of this encounter Plan of Treatment Not on file documented as of this encounter Visit Diagnoses Not on filedocumented in this encounter Additional Health Concerns Assessment Noted Time PHQ-9 Depression Total Score: 9 03/02/20 3:09 PM CENTRAL SUPPLY TECH PHQ-2 Depression Total Score: 0 03/10/20 11:51 AM CENTRAL SUPPLY TECH documented as of this encounter Care Teams Front Desk Admin Relationship Specialty Start Date End Date Hermes Ramirez MD [address] [place] [address] PCP - General 05/28/20 documented as of this encounter
--- OUTSIDE RECORDS SUMMARY | 2024-10-19 22:46 | XMS_ITS | Encounter Summary ---
Author Organization [facility] Address [address] [place] [address] Care Team Providers Care Supervisor Crack Off Name Role Phone Hermes Ramirez MD Primary Care Provider Reason for Visit * Reason Onset Date Comments Refill Request 01/05/2021 Encounter Details Date Type Department Care Team (Late st Contact Info) Description 01/05/2021 Refill [employer] Neurology [address] [facility] [address] [place] [address] Vivian Ayala MD [address] [facility] [address] [place] [address] Refill Request Social History Tobacco [...] on file Legal Sex 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
--- OUTSIDE RECORDS SUMMARY | 2024-10-19 22:46 | XMS_ITS | Encounter Summary ---
Author Organization [facility] Address [address] [place] [address] Care Team Providers Care Service Order Dispatcher Name Role Phone Hermes Ramirez MD Primary Care Provider Reason for Visit * Reason Comments Clinical Social Work Intervention elsa dixon Encounter Details Date Type Department Care Team (Latest Contact Info) Description 01/19/2022 Patient Outreach [place] [facility] [address] [facility] [address] [place] [address] Ho Humphreys LCSW [address] [facility] [address] [place] [address] Clinical Social Work Intervention (scheduling) [...] on file Legal 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
--- OUTSIDE RECORDS SUMMARY | 2024-10-19 22:46 | XMS_ITS | Encounter Summary ---
Author Organization [facility] Address [address] [facility] [place] [address] Care Team Providers Care Computer Aided Drafter Name Role Phone Hermes Ramirez MD Primary Care Provider Reason for Visit * Reason Onset Date Comments Refill Request 04/08/2023 Encounter Details Date Type Department Care Team (Late st Contact Info) Description 04/08/2023 Refill [place] [facility] [address] [address] Marion Pedroza MD [address] [place] [address] Refill Request Social History Tobacco [...] Currently or in the past [facility], have you worried your food would [...] on file Legal Sex 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
--- OUTSIDE RECORDS SUMMARY | 2024-10-19 22:46 | XMS_ITS | Clinical Summary ---
Author Organization [facility] Address [address] [place] [address] Care Team Providers Care Air Conditioning Unit Tester Name Role Phone Chelsyolive Lyly ELISA Primary Care Provider [phone] Allergies Active Allergy Reactions Criticality Noted Date [...] Problem Noted Date Diagnosed Date Acute CHF ([facility]) 02/20/2024 Viral infection 02/20/2024 Rectus sheath hematoma, initial encounter 2017 Cervical dysplasia 10/26/2016 History of vulvar dysplasia 10/26/2016 Gastric ulcer 10/24/2016 Pancreatitis ([facility]) 10/24/2016 Chronic kidney disease 10/24/2016 Anemia, unspecified 05/04/2012 Benign gestational thrombocytopenia ([facility]) History of cone biopsy of cervix 01/04/2012 History of liver transplant ([facility]) Acute pharyngitis 11/19/2010 Abdominal pain 11/13/2010 Aphthous ulcer 11/01/2010 Anxiety 07/21/2010 Encounters Date Type Department Care Team Description 10/18/2024 9:00 PM CDT - 10/18/2024 10:23 PM CDT Emergency [facility] [place] [address] Allen Foster MD Headache Discharge Disposition: Home or Self Care (Routine Discharge) 10/18/2024 Travel 10/17/2024 9:23 PM CDT - 10/17/2024 11:06 PM CDT Emergency [facility] [address] [place] [address] [place] [address] Karmen Byrd PA Headache; Back Pain Discharge Disposition: Home or Self Care (Routine Discharge) 10/17/2024 Travel 10/15/2024 9:28 AM CDT - 10/15/2024 11:59 AM CDT Emergency [facility] [address] [place] [address] [place] [address] Bharat Carroll MD McHood, Jillian M, SENIOR SOFTWARE ANALYST Headache; Back Pain Discharge Disposition: Home or Self Care (Routine Discharge) 10/15/2024 Travel 10/11/2024 5:04 AM CDT - 10/11/2024 5:19 AM CDT Emergency [facility] [address] [place] [address] Prasad Metcalf MD Headache Recurrent Or Know Dx Migraine; Back Pain Discharge Disposition: Home or Self Care (Routine Discharge) 10/11/2024 Travel 09/14/2024 12:28 AM CDT - 09/14/2024 1:50 AM CDT Emergency [facility] [address] [place] [address] Zack Kc MD Back Pain; Headache Discharge Disposition: Home or Self Care (Routine Discharge) 09/13/2024 Travel 08/28/2024 10:52 PM CDT - 08/29/2024 3:30 AM CDT Emergency [facility] [address] [place] [address] [place] [address] Radu Loya MD Cough; Vomiting; URI Discharge Disposition: Home or Self Care (Routine Discharge) 08/28/2024 Travel 08/26/2024 10:28 PM CDT - 08/27/2024 12:30 AM CDT Emergency [facility] [address] [place] [address] Karmen Byrd PA Medical Screening Discharge Disposition: Home or Self Care (Routine Discharge) 08/26/2024 Travel 08/08/2024 10:19 PM CDT - 08/08/2024 10:39 PM CDT Emergency [facility] [address] [place] [address] [place] [address] Roopa Damon NP Back Pain Discharge Disposition: Home or Self Care (Routine Discharge) 08/08/2024 Travel 08/07/2024 11:33 PM CDT - 08/08/2024 12:[address] [facility] [address] [place] [address] Danish Menjivar MD Back Pain; Urinary Symptoms Discharge Disposition: Home or Self Care (Routine Discharge) 08/07/2024 Travel 07/31/2024 1:03 PM CDT - 07/31/2024 2:[address] [facility] [address] [place] [address] Back Pain; Leg Pain Discharge Disposition: Home or Self Care (Routine Discharge) 07/31/2024 12:15 AM CDT - 07/31/2024 1:[address] [facility] [address] [place] [address] Back Pain Discharge Disposition: Left Against Medical [...] time in the past 12 m [facility], were you homeless or living in a retirement (including now)? No 02/20/2024 Comments No Sex and Gender Information Value Date Recorded Sex Assigned at Female 04/05/2024 4:26 PM SENIOR SQL DBA Legal Sex Female 9:15 PM SENIOR SQL DBA Gender Identity Not on file Sexual Orientation [...] - 145 MMOL/L 08/29/2024 12:04 AM CDT [facility] POTASSIUM S/P/B 4.0 3.6 - 5.0 MMOL/L 08/29/2024 12:04 AM CDT [facility] CHLORIDE S/P/B 111 97 - 115 MMOL/L 08/29/2024 12:04 AM [facility] CO2 26.6 21.0 - 32.0 MMOL/L 08/29/2024 12:04 AM [facility] GLUCOSE 104(H) 70 - 99 MG/DL 08/29/2024 12:04 AM [facility] Comment: FASTING GLUCOSE 100 TO 125 MG/DL IS CONSISTENT WITH IMPAIRED FASTING GLUCOSE. FASTING GLUCOSE >125 MG/DL IS CONSISTENT WITH DIABETES. RANDOM GLUCOSE >200 MG/DL WITH HYPERGLYCEMIC SYMPTOMS IS CONSISTENT WITH DIABETES. PER ADA GUIDELINES BUN 23(H) 7 - 18 MG/DL 08/29/2024 12:04 AM [facility] CREATININE S/P/B 2.26(H) 0.55 - 1.02 MG/DL 08/29/2024 12:04 AM [facility] CALCIUM S/P/B 8.5 8.5 - 10.1 MG/DL 08/29/2024 12:04 AM [facility] BILIRUBIN TOTAL S/P/B 1.6(H) 0.2 - 1.0 MG/DL 08/29/2024 12:04 AM [facility] Comment: THIS ASSAY IS NOT RECOMMENDED FOR PATIENTS UNDERGOING TREATMENT WITH ELTROMBOPAG DUE TO THE POTENTIAL FOR FALSELY ELEVATED RESULTS. ALKALINE PHOSPHATASE S/P/B 244(H) 37 - 98 U/L 08/29/2024 12:04 AM [facility] AST 25 15 - 37 U/L 08/29/2024 12:04 AM [facility] ALT 21 13 - 56 U/L 08/29/2024 12:04 AM [facility] TOTAL PROTEIN S/P/B 6.2(L) 6.4 - 8.0 G/DL 08/29/2024 12:04 AM [facility] ALBUMIN S/P/B 3.3(L) 3.4 - 5.0 G/DL 08/29/2024 12:04 AM CDT [facility] ANION GAP 2.4 2.0 - 10.0 MMOL/L 08/29/2024 12:04 AM T [facility] OSMOLALITY (CALC) 294 MOSM/KG 025 12:04 AM T [facility] GFR ESTIMATE 27(L) >90 ML/MIN/1. 73 M2 08/29/2024 12:04 AM CDT [facility] GFR NOTES GFR REFERENCE S: 08/29/2024 12:04 AM T [facility] Comment: THE ESTIMATED GFR IS CALCULATED [...] CDT Radu Loya MD LABORATORY Final Result [facility] [address] [place] [address], * (ABNORMAL) CBC W/DIFF AUTOMATED (08/28/2024 11:31 PM CDT) Only the most recent of3 resultswithin the time period is included. WBC 5.58 4.00 - 10.80 x10'3/uL 08/28/2024 11:44 PM CDT [facility] RBC 3.09(L) 4.10 - 5.40 x10'6/uL 08/28/2024 11:44 PM T [facility] HGB 12.4 12.0 - 16.0 G/DL 08/28/2024 11:44 PM T [facility] HCT 33.6(L) 36.0 - 47.0 % 08/28/2024 11:44 PM T [facility] MCV 108.7(H) 78.0 - 100.0 FL 08/28/2024 11:44 PM T [facility] MCH 40.1(H) 27.0 - 31.0 PG 08/28/2024 11:44 PM T [facility] MCHC 36.9(H) 33.0 - 36.0 G/DL 08/28/2024 11:44 PM T [facility] RDW 13.9 11.5 - 14.5 % 08/28/2024 11:44 PM T [facility] PLT 123(L) 150 - 350 x10'3/uL 08/28/2024 11:44 PM T [facility] MPV 11.0(H) 7.4 - 10.4 FL 08/28/2024 11:44 PM [facility] DIFFERENTIAL TYPE AUTOMATED 08/28/2024 11:44 PM T [facility] SEG NEUTROPHILS 73.3 % 11:44 PM T [facility] LYMPHOCYTES 15.6 % 08/28/2024 11:44 PM T [facility] MONOCYTES 8.6 % 08/28/2024 11:44 PM T [facility] EOSINOPHILS 1.6 % 08/28/2024 11:44 PM T [facility] BASOPHILS 0.2 % 08/28/2024 11:44 PM CDT [facility] IMMATURE GRANS % 0.7 % 08/29/19 25 11:44 PM CDT [facility] NRBC 0.0 % 08/28/2024 11:44 PM CDT [facility] ABS. NEUTROPHILS 4.09 1.60 - 8.30 x10'3/uL 08/28/2024 11:44 PM CDT [facility] ABS. LYMPHOCYTES 0.87 0.80 - 4.70 x10'3/uL 08/28/2024 11:44 PM CDT [facility] ABS. MONOCYTES 0.48 0.00 - 1.50 x10'3/uL 08/28/2024 11:44 PM CDT [facility] ABS. EOSINOPHILS 0.09 0.00 - 0.40 x10'3/uL 08/28/2024 11:44 PM CDT [facility] ABS. BASOPHILS 0.01 0.00 - 0.20 x10'3/uL 08/28/2024 11:44 PM CDT [facility] ABS. IMMATURE GRANULOCYTES 0.04(H) 0.00 - 0.03 x10'3/uL 08/28/2024 11:44 PM CDT [facility] ABS. NUCLEATED RBC'S 0.00 0.00 - 0.01 x10'3/uL 08/28/2024 11:44 PM CDT [facility] 08/28/2024 11:3 1 PM CDT Radu Loya MD LABORATORY Final Result [facility] [address] [place] [address], * Critical Care (08/28/2024 11:05 PM CDT) [...] or life-threatening deterioration of the following conditions: DIRECTOR OF OPERATIONS HOME HEALTH failure or compromise and respiratory failure Critical [...] 11:20 PM Narrative 08/26/2024 11:[address] [place], [place] [address] EXAMINATION: Chest X-Ray 2 View EXAM DATE/TIME: [...] Procedure Note David Hart MD - 08/26/2024 [facility] [place] [address] [place], [place] [address] EXAMINATION: Chest X-Ray 2 View EXAM DATE/TIME: [...] By: David Hart MD, 08/26/2024 11:[address] [facility] [place] GENERAL IMAGING Final R esult * CORONAVIRUS (COVID-19) ANTIGEN (08/26/2024 10:39 PM CDT) CORONAVIRUS ANTIGEN IA NEGATIVE NEGATIVE 08/26/2024 11:07 PM CDT [facility] Comment: NEGATIVE RESULTS SHOULD BE TREATED [...] SPECIMEN TYPE NASAL 08/26/2024 10:40 PM CDT [facility] NASAL NASAL STRUCTURE / Unknown 08/26/2024 10:39 PM CDT [facility] MICROBIOLOGY - GENERAL ORDERABLES Final Result Performing Organization Address City/[facility]/ZIP Co de Phone Number [facility] [address] [place] [address], * INFLUENZA A & B (08/26/2024 10:39 PM CDT) SPECIMEN TYPE (INFLUENZA) NASAL 08/26/2024 10:40 PM CDT [facility] INFLUENZA A NEGATIVE NEGATIVE 08/26/2024 11:06 PM CDT [facility] INFLUENZA B NEGATIVE NEGATIVE 08/26/2024 11:06 PM CDT [facility] NASAL STRUCTURE / Unknown 08/26/2024 10:39 PM CDT Karmen EDMOND MICROBIOLOGY - GENERAL ORDERABLES Final Result Performing Organization Address [facility] Co de Phone Number [facility] [address] [place] [address], * (ABNORMAL) URINALYSIS (08/26/2024 10:39 PM CDT) Only the most recent of2 resultswithin the time period is included. SPECIMEN TYPE URINE VOIDED 10:40 PM CDT [facility] COLOR (U) YELLOW 08/26/2024 11:02 PM CDT [facility] TRANSPARENCY CLEAR 08/26/2024 11:02 PM CDT [facility] SPECIFIC GRAVITY (U) 1.016 1.002 - 1.035 08/26/2024 11:02 PM CDT [facility] U PH 6.0 5.0 - 9.0 08/26/2024 11:02 PM CDT [facility] LEUKOCYTES (U) NEGATIVE NEGATIVE 08/26/2024 11:02 PM CDT [facility] NITRITES NEGATIVE NEGATIVE 08/26/2024 11:02 PM T [facility] PROTEIN RANDOM (U) TRACE(A) NEGATIVE 08/26/2024 11:02 PM CDT [facility] GLUCOSE (U) NORMAL NORMAL 08/26/2024 11:02 PM T [facility] KETONES MG/DL (U) NEGATIVE NEGATIVE 08/26/2024 11:02 PM T [facility] UROBILINOGEN 2.0(H) 0 - 1 EU/DL 08/26/2024 11:02 PM CDT [facility] BILIRUBIN (U) NEGATIVE NEGATIVE 08/26/2024 11:02 PM T [facility] BLOOD (U) NEGATIVE NEGATIVE 08/26/2024 11:02 PM T [facility] MUCUS FEW 08/26/2024 11:02 PM T [facility] WBC/HPF 0-5 /HPF 08/26/2024 11:02 PM T [facility] RBC/HPF 0-5 /HPF 08/26/2024 11:02 PM T [facility] SQUAMOUS EPITHELIALS MODERATE 08/26/2024 11:02 PM T [facility] URINE SPECIMEN FROM URETHRA / Unknown 08/26/2024 10:39 PM CDT Karmen EDMOND URINE ORDERABLES Final Result [facility] [address] [place] [address], * STREP A RAPID (08/26/2024 10:39 PM CDT) SPECIMEN SOURCE THROAT 08/26/2024 10:40 PM CDT [facility] RAPID STREP TEST NEGATIVE NEGATIVE 08/26/2024 11:06 PM CDT [facility] STRUCTURE OF ANTERIOR PORTION OF NECK / Unknown 08/26/2024 10:39 PM CDT us aKrmen EDMOND MICROBIOLOGY - GENERAL ORDERABLES Final Result Performing Organization Address City/[facility]/ZIP Co de Phone Number [facility] [address] [place] [address], [place] [phone] * MAGNESIUM (08/26/2024 10:39 PM CDT) Pathologist [facility] MAGNESIUM 1.6 1.6 - 2.6 MG/DL 08/26/2024 11:20 PM CDT [facility] Comment:RESULT QUESTIONABLE DUE TO HEMOLYSIS, CONSIDER RECOLLECTION. 08/26/2024 10:3 9 PM CDT us Karmen EDMOND LABORATORY Final R esult Performing Organization Address City/[facility]/ZIP Co de Phone Number [facility] [address] [place] [address], [place] [phone] * (ABNORMAL) BASIC METABOLIC PANEL (08/08/2024 12:07 AM CDT) Pathologist [facility] SODIUM S/P/B 137 136 - 145 MMOL/L 08/08/2024 12:36 AM CDT [facility] POTASSIUM S/P/B 4.5 3.5 - 5.1 MMOL/L 08/08/2024 12:36 AM CDT [facility] CHLORIDE S/P/B 111 97 - 115 MMOL/L 08/08/2024 12:36 AM CDT [facility] CO2 19.6(L) 21.0 - 32.0 MMOL/L 08/08/2024 12:36 AM CDT [facility] GLUCOSE 144(H) 74 - 106 MG/DL 08/08/2024 12:36 AM T [facility] BUN 28(H) 7 - 18 MG/DL 08/08/2024 12:36 AM CDT [facility] CREATININE S/P/B 2.01(H) 0.55 - 1.02 MG/DL 08/08/2024 12:36 AM CDT [facility] CALCIUM S/P/B 9.2 8.5 - 10.1 MG/DL 08/08/2024 12:36 AM CDT [facility] ANION GAP 6.4 2.0 - 10.0 MMOL/L 08/08/2024 12:36 AM T [facility] OSMOLALITY (CALC) 292 MOSM/KG 025 12:36 AM T [facility] Comment:REFERENCE RANGE NOT ESTABLISHED GFR ESTIMATE 31(L) >90 ML/MIN/1. 73 M2 08/08/2024 12:36 AM T [facility] GFR NOTES GFR REFERENCE S: 08/08/2024 12:36 AM T [facility] Comment: THE ESTIMATED GFR IS CALCULATED [...] CDT Danish Menjivar MD LABORATORY Final Result [facility] [address] [place] [address], [id number] * CULTURE URINE (08/07/2024 11:55 PM CDT) SPEC DESCRIPTION URINE, UNSPECIFIED 08/07/2024 11:55 PM CDT [facility] SPECIAL REQUESTS NO SPECIAL REQUEST 08/07/2024 11:55 PM CDT [facility] CULTURE RESULT NO GROWTH (< OR = 1,000 CFU/ML) 08/09/2024 9:03 AM CDT [facility] URINE SPECIMEN / Unknown 08/07/2024 11:55 PM CDT 08/08/2024 12:15 AM CDT us Danish Menjivar MD MICROBIOLOGY - GENERAL ORDER KAREN Final Result Performing Organization Address [facility] Co de Phone Number [facility] [address] [place] [address], [id number] * HUMAN PAPILLOMAVIRUS, HIGH-RISK TYPES (06/20/2022 12:00 PM CDT) SPECIMEN CERVICAL/END OCERVICAL 06/22/2022 8:18 AM CDT [facility] HPV DNA HIGH RISK NEGATIVE NEGATIVE 06/22/2022 7:35 PM CDT [facility] Comment:SEE CYTOLOGY REPORT 06/20/2022 12:0 0 PM CDT us Sekou Scherer MD PATHOLOGY/CYTOLOGY ORDER KAREN Final Result Performing Organization Address City/[facility]/ZIP Co de Phone Number [facility] [address] [place] [address], [place] [phone] * Cytopath Cerv/Vag Thin Layer (06/20/2022 7:46 AM CDT) THIN PREP PAP [address] [address] Department of Pathology Pathology Report CERVICAL/VAGINAL PAP SMEAR REPORT Name: MISHA BROWNE Age: 7 1980 (Age: 41) Location: [facility] Sex: F Collected Date: 06/20/2022 Hospital #: [id number] Date Received: 06/22/2022 Date Reported: 06/24/2022 Provider: [...] Cohen (ASCP) CLINICAL HISTORY Z12.4 PAP HISTORY-NILM HAND POLISHER SURGICAL HISTORY-HPV+ 05/17/16 LASER/CRYOTHERAPY ThinPrep Pap Test [...] not effective in detecting cervical adenocarcinoma. [facility] () [facility] 06/20/2022 7:46 AM CDT 06/22/2022 7:46 AM CDT Comment:CERVICAL/ENDOCERVICA L Sekou Scherer MD PATHOLOGY/CYTOLOGY ORDER KAREN Final Result [facility] [address] [place] [address], [place] [phone] from Last 3 Months or Most Recently Relevant to Health Maintenance Insurance MEDICAID Advance Directives * Full Code (Latest Code Status on File) Date Activated Date Inactivated Comments 02/20/2024 1:27 AM 02/20/2024 11:44 AM * Full Code Date Activated Date Inactivated Comments 06/21/2017 12:22 AM 06/21/2017 8:16 PM Care Teams Air Conditioning Unit Tester Relationship Specialty Start Date End Date Lyly Fiore NP [address] [place] [address] PCP - General NURSE PRACTITIONER 04/14/24
--- OUTSIDE RECORDS SUMMARY | 2024-10-19 22:46 | XMS_ITS | Encounter Summary ---
Author Organization [facility] Address [address] [place] [address] Care Team Providers Care [facility] Facility Psychiatrist Name Role Phone Ashley ZUNIGA MD, Hermes Perez Primary Care Provid er Lyly Fiore NP Primary Care Provider [phone] Encounter Details Date Type Department Care Team (Late st Contact Info) Description 08/22/2018 Abstract [facility] [address] [place] [id number] Social History Tobacco Use Types Packs/Day Years Used Date Smoking Tobacco: Every Day Cigarettes 0.5 15 Smokeless Tobacco: Never Alcohol Use Standard Drinks/Week Comments No 0 (1 standard drink = 0.6 oz pur e alcohol) Comments No Sex and Gender Information Value Date Recorded Sex Assigned at Female 04/05/2024 4:26 PM ACCOUNT RETENTION REPRESENTATIVE Legal Sex Female 9:15 PM ACCOUNT RETENTION REPRESENTATIVE Gender Identity Not on file Sexual Orientation Not on file documented as of this encounter Plan of Treatment Not on file documented as of this encounter Visit Diagnoses Not on filedocumented in this encounter Additional Health Concerns Infection Onset Date Last Indicated Resolved Time COVID-19 Rule Out 03/30/2020 03/30/2020 03/30/2020 9:29 PM ACCOUNT RETENTION REPRESENTATIVE COVID-19 Rule Out 03/30/2020 03/30/2020 03/31/2020 12:28 PM ACCOUNT RETENTION REPRESENTATIVE COVID-19 Rule Out 02/16/2024 02/16/2024 02/16/2024 9:16 PM ACCOUNT RETENTION REPRESENTATIVE Rhinovirus 02/16/2024 02/16/2024 02/26/2024 12:3 2 AM ACCOUNT RETENTION REPRESENTATIVE COVID-19 Rule Out 08/26/2024 08/26/2024 08/26/2024 11:07 PM CDT Respiratory Rule Out 08/26/2024 08/26/2024 025 11:06 PM CDT documented as of this encounter Care Teams Correctional Facility Psychiatrist Relationship Specialty Start Date End Date Hermes Ramirez III, MD [address] [facility] [address] [place] [address] PCP - General FAMILY PRACTICE 06/20/17 04/13/24 Lyly Fiore NP [address] [place] [address] PCP - General NURSE PRACTITIONER 04/14/24 documented as of this encounter
--- OUTSIDE RECORDS SUMMARY | 2024-10-19 22:46 | XMS_ITS | Encounter Summary ---
Author Organization [facility] Address [address] [facility] [place] [facility] [place] [address] Care Team Providers Care Coremaking Machine Operator Name Role Phone Hermes Ramirez MD Primary Care Provider Reason for Visit * Reason Onset Date Comments Refill Request 06/01/2023 Encounter Details Date Type Department Care Team (Late st Contact Info) Description 06/01/2023 Refill [facility] [address] [address] Marion Pedroza MD [address] [place] [address] Refill Request Social History Tobacco [...] Currently or in the past 3 m [facility], have you worried your food would run [...] on file Legal Sex Female 1:03 PM PESTICIDE CHEMIST Gender Identity Not on file Sexual [...] documented as of this encounter Care Teams Coremaking Machine Operator Relationship Specialty Start Date End Date Hermes Ramirez MD [address] [place] [address] PCP - General 05/28/20 documented as of this encounter
--- OUTSIDE RECORDS SUMMARY | 2024-10-19 22:46 | XMS_ITS | Encounter Summary ---
Author Organization [facility] Address [address] [place] [address] Care Team Providers Care Motor Adjuster Name Role Phone Ashley ZUNIGA MD, Hermes Perez Primary Care Provid er Lyly Fiore NP Primary Care Provider [phone] Encounter Details Date Type Department Care Team (Late st Contact Info) Description 06/03/2017 Abstract [facility] [address] [place] [address] , Generic ConversionMD Social History Tobacco Use Types Packs/Day Years Used Date Smoking Tobacco: Never Assessed Comments Unknown Sex and Gender Information Value Date Recorded Sex Assigned at Female 04/05/2024 4:26 PM VEHICLE REFINISHER Legal Sex Female 9:15 PM VEHICLE REFINISHER Gender Identity Not on file Sexual Orientation Not on file documented as of this encounter Plan of Treatment Not on file documented as of this encounter Visit Diagnoses Not on filedocumented in this encounter Additional Health Concerns Infection Onset Date Last Indicated Resolved Time COVID-19 Rule Out 03/30/2020 03/30/2020 03/30/2020 9:29 PM VEHICLE REFINISHER COVID-19 Rule Out 03/30/2020 03/30/2020 03/31/2020 12:28 PM VEHICLE REFINISHER COVID-19 Rule Out 02/16/2024 02/16/2024 02/16/2024 9:16 PM VEHICLE REFINISHER Rhinovirus 02/16/2024 02/16/2024 02/26/2024 12:3 2 AM VEHICLE REFINISHER COVID-19 Rule Out 08/26/2024 08/26/2024 08/26/2024 11:07 PM CDT Respiratory Rule Out 08/26/2024 08/26/2024 025 11:06 PM CDT documented as of this encounter Care Teams Motor Adjuster Relationship Specialty Start Date End Date Hermes Ramirez III, MD [address] [address] PCP - General FAMILY PRACTICE 06/20/17 04/13/24 Lyly Fiore NP [address] [place] [address] PCP - General NURSE PRACTITIONER 04/14/24 documented as of this encounter
--- OUTSIDE RECORDS SUMMARY | 2024-10-19 22:46 | XMS_ITS | Encounter Summary ---
Author Organization [facility] Address [address] [facility] [place] [address] Care Team Providers Care Animal Stunner Name Role Phone Hermes Ramirez MD Primary Care Provider Reason for Visit * Reason Onset Date Comments Refill Request 05/06/2023 Encounter Details Date Type Department Care Team (Late st Contact Info) Description 05/06/2023 Refill [facility] [address] [address] Marion Pedroza MD [address] [place] [address] Refill Request Social History Tobacco [...] Currently or in the past 3 m [facility], have you worried your food would run [...] Legal Sex Female 1:03 PM DIRECTOR OF SEARCH ENGINE OPTIMIZATION Gender Identity Not on file Sexual Orientation [...] as of this encounter Care Teams Animal Stunner Relationship Specialty Start Date End Date Hermes Ramirez MD [address] [place] [address] PCP - General 05/28/20 documented as of this encounter
--- OUTSIDE RECORDS SUMMARY | 2024-10-19 22:47 | XMS_ITS | Encounter Summary ---
Author Organization [facility] Address [address] [place] [address] Care Team Providers Care Oim Architect Name Role Phone Hermes Ramirez MD Primary Care Provider [phone] Reason for Visit * Reason Onset Date Comments Refill Request 09/06/2020 Encounter Details Date Type Department Care Team (Late st Contact Info) Description 09/06/2020 Refill [place] [place] [facility] [address] [facility] [address] [place], [place] [phone] [place] [address] [place] [address] Refill Request Social History Tobacco Use Types Packs/Day Years Used Date Smoking Tobacco: Former Cigarettes 0.5 20 0 03/20/2000 - 03/20/2020 Smokeless Tobacco: Never Social Connections Answer Date Recorded Conversations with friends/family/neighbors per week Not on file 05/25/2020 Comments No Sex and Gender Information Value Date Recorded Sex Assigned at Not on file Legal Sex Female 1:03 PM HEALTH PROMOTION EDUCATOR Gender Identity Not on file Sexual Orientation Not on file documented as of this encounter Plan of Treatment Not on file documented as of this encounter Visit Diagnoses Not on filedocumented in this encounter Additional Health Concerns Assessment Noted Time PHQ-2 Depression Total Score: 0 07/07/19 21 9:51 AM CDT documented as of this encounter Care Teams Oim Architect Relationship Specialty Start Date End Date Hermes Ramirez MD [address] [place] [address] PCP - General 05/28/20 documented as of this encounter
--- OUTSIDE RECORDS SUMMARY | 2024-10-19 22:47 | XMS_ITS | Encounter Summary ---
Author Organization [facility] Address [address] [place] [address] Care Team Providers Care Armature Connector Name Role Phone Hermes Ramirez MD Primary Care Provider [phone] Reason for Visit * Reason Comments Refill Request Encounter Details Date Type Department Care Team (Late st Contact Info) Description 12/06/2023 Refill [facility] [address] [place], [place] [phone] Levi Sheriff, ELISA [address] [place] [address] Refill Request Social History Tobacco Use Types [...] Currently or in the past 3 m [facility], have you worried your food would run out before you had money to buy more? No 2023 In the past 12 months, have you run out of food or been unable to get more? No 11/22/2023 Transportation Needs Answer Date Record ed Currently or in the past 3 m [facility], has lack of transportation kept you from [...] on file Legal Sex Female 1:03 PM PATIENT FINANCIAL COUNSELOR Gender Identity Not on file Sexual [...] documented as of this encounter Care Teams Armature Connector Relationship Specialty Start Date End Date Hermes Ramirez MD [address] [place] [address] PCP - General 05/28/20 documented as of this encounter
--- OUTSIDE RECORDS SUMMARY | 2024-10-19 22:47 | XMS_ITS | Encounter Summary ---
Author Organization [facility] Address [address] [facility] [place] [address] Care Team Providers Care Network Programmer Name Role Phone Hermes Ramirez MD Primary Care Provider Reason for Visit * Reason Onset Date Comments Refill Request 09/06/2020 Encounter Details Date Type Department Care Team (Late st Contact Info) Description 09/06/2020 Refill [facility] [address] [phone] Allen Manzano PAVasquez [address] [facility] [address] [place] [phone] Refill Request Social History Tobacco Use Types Packs/Day Years Used Date Smoking Tobacco: Former Cigarettes 0.5 20 0 03/20/2000 - 03/20/2020 Smokeless Tobacco: Never Social Connections Answer Date Recorded Conversations with friends/family/neighbors per week Not on file 05/25/2020 Comments No Sex and Gender Information Value Date Recorded Sex Assigned at Not on file Legal Sex Female 1:03 PM CHIEF PROCUREMENT OFFICER Gender Identity Not on file Sexual Orientation Not on file documented as of this encounter Plan of Treatment Not on file documented as of this encounter Visit Diagnoses Not on filedocumented in this encounter Additional Health Concerns Assessment Noted Time PHQ-2 Depression Total Score: 0 07/07/19 21 9:51 AM CDT documented as of this encounter Care Teams Network Programmer Relationship Specialty Start Date End Date Hermes Ramirez MD [address] [place] [address] PCP - General 05/28/20 documented as of this encounter
--- OUTSIDE RECORDS SUMMARY | 2024-10-19 22:47 | XMS_ITS | Encounter Summary ---
Author Organization [facility] Address [address] [place] [address] Care Team Providers Care Chamber Of Commerce Division Manager Name Role Phone Adebayo Lyly PÉREZ Primary Care Provider [phone] Reason for Visit * Reason Comments Headache Encounter Details Date Type Department Care Team (Late st Contact Info) Description 10/18/2024 9:00 PM CDT - 10/18/2024 10:23 PM CDT Emergency [facility] [address] [place] [address] Allen Foster MD [address] [place] [phone] Headache Discharge Disposition: Home or Self Care [...] Sex Assigned at Female 04/05/2024 4:26 PM CONTROLS TECHNICIAN Legal Sex Female 9:15 PM CONTROLS TECHNICIAN Gender Identity Not on file Sexual [...] PM ALICIAT Jane Nicolas RN Active * [place] Suicide Severity Rating Scale (Screener/Recent Self-Report) Question [...] to go back to pain management at [facility] on October 29 Patient is given Benadryl [...] RN) documented in this encounter Care Teams [employer] Division Manager Relationship Specialty Start Date End Date Lyly Fiore NP [address] [place] [address] PCP - General NURSE PRACTITIONER 04/14/24 documented as of this encounter
--- OUTSIDE RECORDS SUMMARY | 2024-10-19 22:47 | XMS_ITS | Encounter Summary ---
Author Organization [facility] Address [address] [place] [address] Care Team Providers Care Mosaic Tiler Name Role Phone Hermes Ramirez MD Primary Care Provider Encounter Details Date Type Department Care Team (Late st Contact Info) Description 11/21/2023 Telephone [facility] [address] [place], [place] [phone] Ajith Wild MD [address] [facility] [address] [place], [place] [phone] Social History Tobacco Use Types Packs/Day Years [...] Currently or in the past 3 m [facility], have you worried your [...] on file Legal Sex Female 1:03 PM SUPERVISOR ELECTRONICS PROCESSING Gender Identity Not on file Sexual Orientation [...] documented as of this encounter Care Teams Mosaic Tiler Relationship Specialty Start Date End Date Hermes Ramirez MD [address] [place] [address] PCP - General 05/28/20 documented as of this encounter
--- OUTSIDE RECORDS SUMMARY | 2024-10-19 22:47 | XMS_ITS | Encounter Summary ---
Author Organization [facility] Address [address] [place] [address] Care Team Providers Care Cashier And Salesperson Name Role Phone Hermes Ramirez MD Primary Care Provider Encounter Details Date Type Department Care Team (Late st Contact Info) Description 07/16/2022 Telephone [facility] Transplant [facility] [address] [facility] [address] [place], [place] [address] Hollie Eugene RN Social History Tobacco Use [...] Currently or in the past 3 m [facility], have you worried your food [...] on file Legal Sex Female 1:03 PM LINE MECHANIC Gender Identity Not on file Sexual Orientation Not on file COVID-19 Exposure Response Date Recorded In the last 10 days, have yo u been in contact with someone who was confirmed or suspected to have Coronavirus/COVID-19? No / Unsure 07/13/2022 3:03 PM CDT documented as of this encounter Progress Notes * Hollie Eugene RN - 07/16/2022 6:43 PM CDT Patient called the conversion developer answering service. Per patient she is having [...] documented as of this encounter Care Teams Cashier And Salesperson Relationship Specialty Start Date End Date Hermes Ramirez MD [address] [place] [address] PCP - General 05/28/20 documented as of this encounter
--- OUTSIDE RECORDS SUMMARY | 2024-10-19 22:47 | XMS_ITS ---
Author Organization [facility] Address [address] [place] [address] Care Team Providers Care Paste Up Artist Apprentice Name Role Phone Beatriz Lee MD Unavailable [phone]- [phone] Lyly Fiore NP Primary Care Provider Taylor Kitchen RN Unavailable Unav ailable Transplant Episode Liver Recipient [facility] ([place], [place]) - [facility] Transplanted on 05/09/2020 Marked as Active Follow-up on 07/01/2024 Reason: In Transition Process Liver CoordinatorTaylor Kitchen RN Phone: N/A Fax: N/A Email: N/A Transplanted Elsewhere: [facility] ([place], [place]) - [place] Coordinator: Phone: Fax: [place] 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
--- OUTSIDE RECORDS SUMMARY | 2024-10-19 22:47 | XMS_ITS | Encounter Summary ---
Author Organization [facility] Address [address] [facility] [place] [address] Care Team Providers Care Medical Assistant Float Name Role Phone Hermes Ramirez MD Primary Care Provider Reason for Visit * Reason Comments Refill Request Encounter Details Date Type Department Care Team ([facility] st Contact Info) Description 01/10/2023 Refill [facility] Transplant [facility] [address] [facility] [address] [place] [address] Allen Manzano, PAMoisésC [address] [facility] [address] [place] [address] Refill Request Social History Tobacco [...] Currently or in the past [address] [facility], have you worried your food [...] on file Legal Sex Female 1:03 PM SECURITIES DEALER Gender Identity Not on file Sexual [...] as of this encounter Care Teams Medical Assistant Float Relationship Specialty Start Date End Date Hermes Ramirez MD [address] [place] [address] PCP - General 05/28/20 documented as of this encounter
--- OUTSIDE RECORDS SUMMARY | 2024-10-19 22:47 | XMS_ITS | Encounter Summary ---
Author Organization [facility] Address [address] [place] [address] Care Team Providers Care Collision Mechanic Name Role Phone Hermes Ramirez MD Primary Care Provider Reason for Visit * Reason Comments Refill Request Encounter Details Date Type Department Care Team (Late st Contact Info) Description 10/21/2020 Refill [facility] [address] [facility] [address] [place] [address] Nirav Carpio MD [address] [place] [phone] Refill Request Social History Tobacco Use [...] on file Legal Sex Female 1:03 PM DONOR SERVICES TECHNICIAN Gender Identity Not on file Sexual [...] documented as of this encounter Care Teams Collision Mechanic Relationship Specialty Start Date End Date Hermes Ramirez MD [address] [place] [address] PCP - General 05/28/20 documented as of this encounter
--- OUTSIDE RECORDS SUMMARY | 2024-10-19 22:47 | XMS_ITS | Encounter Summary ---
Author Organization [facility] Address [address] [place] [address] Care Team Providers Care Tray Server Name Role Phone Hermes Ramirez MD Primary Care Provider Encounter Details Date Type Department Care Team (Late st Contact Info) Description 07/24/2024 Lab Requisition [facility] [address] [address] Transplant-Liver, [place] [address] Mailstop [phone] [place] [address] Social History Tobacco Use Types Packs/Day Years [...] Currently or in the past 3 m [facility], have you worried your food would [...] on file Legal Sex Female 1:03 PM PERFORATOR Gender Identity Not on file Sexual Orientation [...] 9 slides have been sent to [facility]. 07/26/2024 4:32 PM CDT [facility] Reference 07/26/2024 4:32 PM CDT [facility] Tissue TISSUE SPECIMEN / Unknown 11/17/2023 07/24/2024 4:31 PM CDT [facility] Transplant-Liver LAB PATHOLOGY CYTOLOGY ORDERABLE Final Result Performing Organization Address City/[facility] Co de Phone Number [facility] [address] [place] [address] * AP Block Slide Request: (11/17/2023) AP Request The following 10 slides have been sent to [facility]. 07/26/2024 4:34 PM CDT [facility] Reference 07/26/2024 4:34 PM CDT [facility] Tissue TISSUE SPECIMEN / Unknown 11/17/2023 07/24/2024 4:31 PM CDT [facility] Transplant-Liver LAB PATHOLOGY CYTOLOGY ORDERABLE Final Result Performing Organization Address City/[facility] Co de Phone Number [facility] [address] [place] [address] documented in this encounter Visit Diagnoses Not on filedocumented in this encounter Additional Health Concerns Assessment Noted Time PHQ-9 Depression Total Score: 6 12/08/19 22 3:08 PM CDT PHQ-2 Depression Total Score: 0 06/23/19 23 10:20 AM CDT documented as of this encounter Care Teams Tray Server Relationship Specialty Start Date End Date Hermes Ramirez MD [address] [place] [address] PCP - General 05/28/20 documented as of this encounter
--- OUTSIDE RECORDS SUMMARY | 2024-10-19 22:47 | XMS_ITS | Encounter Summary ---
Author Organization [facility] Address [address] [place] [address] Care Team Providers Care Passenger Barge Master Name Role Phone Hermes Ramirez MD Primary Care Provider Reason for Visit * Reason Onset Date Comments Refill Request 09/02/2022 Encounter Details Date Type Department Care Team (Late st Contact Info) Description 09/02/2022 Refill [place] [facility] [address] [phone] Tico Salmon NP [address] [place] [address] Refill Request Social History Tobacco [...] Currently or in the past 3 m [facility], have you worried your food would run out before you had money to buy more? No 2021 In the past 12 months, have you run out of food or been unable to get more? No 02/18/2022 Transportation Needs Answer Date Record ed Currently or in the past 3 m [facility], has lack of transportation kept you [...] on file Legal Sex Female 1:03 PM RESIDENT MEDICAL OFFICER Gender Identity Not on file Sexual [...] documented as of this encounter Care Teams Passenger Barge Master Relationship Specialty Start Date End Date Hermes Ramirez MD [address] [place] [address] PCP - General 05/28/20 documented as of this encounter
--- OUTSIDE RECORDS SUMMARY | 2024-10-19 22:47 | XMS_ITS | Encounter Summary ---
Author Organization [facility] Address [address] [place] [address] Care Team Providers Care Clothes Ironer Name Role Phone Chelsyolive Lyly ELISA Primary Care Provider [phone] Encounter Details Date Type Department Care Team [...] Sex Assigned at Female 04/05/2024 4:26 PM COLOR ROOM ATTENDANT Legal Sex Female 9:15 PM COLOR ROOM ATTENDANT Gender Identity Not on file [...] 9:05 PM Jane Hyatt RN Active * [place] Suicide Severity Rating Scale (Screener/Recent Self-Report) Question [...] Date Author Status No 02/20/2024 4:08 AM COLOR ROOM ATTENDANT Kimmy Hayes RN Active documented in this encounter Plan of Treatment Not on file documented as of this encounter Visit Diagnoses Not on filedocumented in this encounter Care Teams Clothes Ironer Relationship Specialty Start Date End Date Lyly Fiore NP [address] [place] [address] PCP - General NURSE PRACTITIONER 04/14/24 documented as of this encounter
--- OUTSIDE RECORDS SUMMARY | 2024-10-19 22:47 | XMS_ITS | Encounter Summary ---
Author Organization [facility] Address [address] [place] [address] Care Team Providers Care Talent Agent Name Role Phone Chelsyolive Lyly ELISA Primary Care Provider [phone] Reason for Visit * Reason Comments Headache Back Pain Encounter Details Date Type Department Care Team (Late st Contact Info) Description 10/17/2024 9:23 PM CDT - 10/17/2024 11:06 PM CDT Emergency [facility] [address] [facility] [place] [address] Karmen Byrd PA [address] [place] [id number] Headache; Back Pain Discharge Disposition: Home [...] any time in the past 12 m [facility], were you homeless or living in a custodial (including now)? No 02/20/2024 Comments No Sex and Gender Information Value Date Recorded Sex Assigned at Female 04/05/2024 4:26 PM HAT LINER Legal Sex Female 9:15 PM HAT LINER Gender Identity Not on file Sexual [...] 9:00 PM Demetrius Sykes RN Active * [place] Suicide Severity Rating Scale (Screener/Recent Self-Report) Question [...] through Care Everywhere. * Headache, Adult ED ([place]) * Chronic pain ([place]) documented in this encounter Medications at Time [...] 25 mg, Intravenous, Once, 1 dose, On [facility] 10/17/24 at 2145, For IV administration, give [...] RN) documented in this encounter Care Teams Talent Agent Relationship Specialty Start Date End Date Lyly Fiore NP [address] [place] [address] PCP - General NURSE PRACTITIONER 04/14/24 documented as of this encounter
--- OUTSIDE RECORDS SUMMARY | 2024-10-19 22:47 | XMS_ITS | Clinical Summary ---
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 Gender Identity Not on file Sexual Orientation [...] this topic Medical Devices Implanted Type Area Automobile Body Worker Device Identifier Shelf Expiration Date Model / Serial / Lot Liver - [id number] Implanted:Qty: 1 on 05/09/2020 by Nirav Carpio MD at [facility] N/A: Abdomen ORGAN PROCUREMENT ORGANIZATION 05/10/2020 ORGAN - LIVER / [id number] / LOT NA Left Kidney - [id number] Implanted:Qty: 1 on 05/09/2020 by Nirav Carpio MD at [facility] N/A: Abdomen ORGAN PROCUREMENT ORGANIZATION 05/10/2020 ORGAN - LEFT KIDNEY / [id number] / LOT NA Stent Ureteral L12 Cm L100 Cm Od6 Fr .028 In Closed End Design One Step Insertion Radiopaque Filler Double-J Silicone Disposable - [id number] Implanted:Qty: 1 on 05/09/2020 by Nirav Carpio MD at [facility] N/A: Abdomen OLYMPUS - GYRUS ACMI WAGNER 02/11/2025 [id number] / / [id number] Stent Ureteral L12 Cm L100 Cm Od6 Fr .028 In Closed End Design One Step Insertion Radiopaque Filler Double-J Silicone Disposable - [id number] Implanted:Qty: 1 on 05/09/2020 by Nirav Carpio MD at [facility] N/A: Abdomen OLYMPUS - GYRUS ACMI WAGNER 02/11/2025 [id number] / / [id number] Device Closure L70 Cm .038 In Insertion Sheath Arteriotomy Custom Feed Mill Operator Guidewire J Dancer Or Choreographer Vascular Angio-Seal Evolution ([id number]) - [id number] Implanted:Qty: 1 on 07/20/2020 at [facility] TERUMO MEDICAL WAGNER 03/19/2021 [id number] / / [id number] Procedures Procedure Name Priority Date/Time Associated Diagnosis Comments HEPATITIS C VIRUS ANTIBODY Routine 11/07/2023 5:43 AM CDT HIV RNA QUANTITATION (HIV VIRAL LOAD) Routine 06/17/2020 9:55 AM CDT 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 This does not exclude the possibility of exposure to HCV. 11/07/2023 5:43 AM CDT 11/07/2023 6:16 AM CDT Phillip Mustafa MD LAB BLOOD ORDERABLES Final Re sult [address] [address] * HIV RNA Quantitation (06/17/2020 9:55 AM CDT) [facility] HIV-1 RNA QUANTITATION HIV RNA Quantitation [facility] HIV-1 RNA QUANTITATION Less than 40 Less than 40 Copies/m L [facility] HIV LOG RESULT Less than 1.6 R [facility] Comment: Methodology: Quantitation of HIV RNA [...] PA-C LAB BLOOD MICRO Final Resu lt [address] [address] * Pathology Gyne Cytology: (04/28/2020 12:00 AM ELECTRICIAN MACHINE SHOP) [facility] AP [facility] COPA TH CONVERSION PATHOLOGY RESULT Department of Pathology [facility] [address] [facility] [place] [address] Final *Clinical Data Electronic version* This report may not match the original report format REPORT DATE: 05/04/2020 FINAL CYTOLOGIC DIAGNOSIS GYNE THIN PREP + HPV HIGH RISK Adequacy: Satisfactory for evaluation, but limited by no transformation zone. General Category: Negative for intraepithelial lesion or malignancy. Description: Fungal organisms morphologically consistent with Lydia. HPV mRNA E6/E7 NOT DETECTED Performed using the APTIMA HPV Assay ([employer]) This assay detects E6/E7 viral messenger RNA (mRNA) from 14 high risk HPV types (16, 18, 31, 33, 35, 39, 45, 51, 52, 56, 58, 59, 66, 68) [Reference Range = NOT DETECTED] TEST PERFORMED AT: [facility], [address] [place] [address]. E Business Consultant: David Kc MD. IA # [id number]. Attending Pathologist: Destiny Obregon MD, PhD * Electronically signed Review by Industrial Seamstress: Akil De La Cruz * Electronically signed [...] developed and the performance characteristics determined by [facility] Department of Pathology. These tests have not been cleared or approved for commercial use by the U.S. Food and Drug Administration. This test is used for clinical purposes. It should not be regarded as investigational or for research. The FDA has determined that FDA review is not required for such assays. This is for [id number]. CLINICAL INFORMATION Date of Last Menstrual Period: UNKNOWN Other Clinical Conditions: LSIL or higher, bx/pap HPV, Hx/Dx/Rx Intradepartmental Consultation Pathologist: ICD-CM(s): A; Z12.4 Z11.51 CPT(s): A; 48907, [address] [facility] COPATH CONVERSION AP Final Diagnosis GYNE THIN PREP + HPV HIGH RISK Adequacy: Satisfactory for evaluation, but limited by no transformation zone. General Category: Negative for intraepithelial lesion or malignancy. Description: Fungal organisms morphologically consistent with Lydia. HPV mRNA E6/E7 NOT DETECTED Performed using the APTIMA HPV Assay ([employer]) This assay detects E6/E7 viral messenger RNA (mRNA) from 14 high risk HPV types (16, 18, 31, 33, 35, 39, 45, 51, 52, 56, 58, 59, 66, 68) [Reference Range = NOT DETECTED] TEST PERFORMED AT: [facility], [address] [place] [address]. E Business Consultant: David Kc MD. CLIA # [id number]. [facility] COPATH CONVERSION AP Notes This case was reviewed by a pathologist for QC purposes only. [facility] COPATH CONVERSION AP ICD-10 Code Z12.4 Z11.51 [facility] COPATH CONVERSION HPV HR SCREEN SEE COMMENT [facility] COPATH CONVERSION 04/28/2020 04/29/2020 7:2 0 AM ELECTRICIAN MACHINE SHOP Dulce Austin MD PATHOLOGY Edited Result - Final [facility] COPATH CONVERSION from Last 3 Months or Most Recently Relevant to Health Maintenance Advance Directives Documents on File Type Date Recorded Patient Support Assistant Expl anation Advance Directives 07/18/2020 9:50 AM [...] 1:35 AM 12/14/2020 1:59 PM Care Teams Bank Teller Relationship Specialty Start Date End Date Hermes Ramirez MD [address] [place] [id number] PCP - General 05/28/20
== END 2024-10-19 23:12 | disposition home or self-care (01) ==
PROVIDERS: Emergency Provider Internal Medicine Critical Care Medicine
DX: R51.9 Headache, unspecified (principal); M54.50 Low back pain, unspecified; G89.29 Other chronic pain
CPT/HCPCS: 96372; 99284; J1171; J1200

== ENCOUNTER 2024-10-26 00:05 | Emergency (ER) | payer MEDICAID, SELFPAY ==
[2024-10-26 00:05] VITALS: BP 181/99; PULSE 106; RESP 18; TEMP 36.4; O2SAT 100
--- NOTE | 2024-10-26 00:06 | ED.BACK ---
HPI - Back Pain/Injury General Chief Complaint: Back Pain/Injury Stated Complaint: BACK PAIN Time Seen by Provider: 10/26/24 00:06 Source: patient Mode of arrival: ambulatory Limitations: no limitations History of Present Illness HPI Narrative: patient is a 44-year-old female with chronic back pain here for acute back pain after walking around a theme park today. She has a pain management doctor that she sees regularly. She has upcoming plans for surgery toward her back. She tries to get shots of steroids in her back with minimal success per the history. Patient has been to the ER 12 times already this year for pain management. Patient is a liver and kidney transplant bases history. She cannot take many medications due to this fact. Patient understands we do not have the records to evaluate the kidneys and liver in relationship to chronic pain medicine. Patient said her main goal today was get narcotics for her chronic back pain. She has been doing lots of extra work today and activity which caused her pain to flare. MD elicited complaint: back pain Pertinent past history: prior back pain Onset (ago): hour(s) Timing: intermittent Severity: moderate Pain scale (0-10): 8 Similar Symptoms Previously: Yes Quality: sharp, dull, stabbing and crushing Location: lumbar spine and left lower back Radiation: none Exacerbating factors: none Relieving factors: none Context: other ( patient has acute on chronic back pain today and was hoping for dilaudid or similar narcotic that she gets on regular visits) Associated symptoms: denies other symptoms and other ( No complaints of saddle numbness or anesthesia with no changes to urine or bladder or stool) Treatments prior to arrival: other ( none) Related Data Allergies Allergy/AdvReac Type Severity Reaction Status Date / Time erythromycin base Allergy Intermediate Rash Verified 10/19/24 23:22 gentamicin Allergy Intermediate Rash Verified 10/19/24 23:22 ketorolac (From Toradol) AdvReac Severe Abdominal Verified 10/19/24 23:22 Pain NSAIDS (Non-Steroidal AdvReac Severe Abdominal Verified 10/19/24 23:22 Anti-Inflamma Pain Review of Systems Review of Systems: All systems reviewed & are unremarkable except as noted in HPI and below Constitutional: Constitutional: Reports no additional constitutional complaints Eyes: Eyes: Reports no additional eye complaints ENT: Reports system reviewed and no additional complaints, except as documented Cardiovascular: Cardiovascular: Reports no additional cardiovascular complaints Respiratory: Respiratory: Reports no additional respiratory complaints Gastrointestinal: Gastrointestinal: Reports no additional gastrointestinal complaints Genitourinary: Genitourinary: Reports no additional female genitourinary complaints Musculoskeletal: Musculoskeletal: Reports no additional musculoskeletal complaints Integumentary/Breasts: Skin/Breast: Reports system reviewed and no additional complaints, except as docu Neurologic: Reports system reviewed and no additional complaints, except as documented Psychiatric: Psychiatric: Reports no additional psychiatric complaints Endocrine: Endocrine: Reports no additional endocrine complaints Hematologic/Lymphatic: Hematologic/Lymphatic: Reports no additional hematologic/lymphatic complaints Allergic/Immunologic: Allergic/Immunologic: Reports no additional allergic/immunologic complaints PMFSH Past Medical History Medical History Anxiety and depression Spinal stenosis DJD (degenerative joint disease) Migraine Biliary atresia Surgical History Surgical History Liver transplant recipient Exam Const: General: healthy appearing Nutritional Appearance: well nourished Orientation/consciousness: patient oriented x3 HENMT: Head: normal to inspection Ears: external ears normal Face/Nose/Sinus: Normal external nose present Eyes: Conjunctivae: conjunctivae normal Pupils: Equal, round and reactive pupils present EOM: EOMs intact bilaterally Neck: Neck: normal visual inspection Chest: Chest palpation & inspection: normal inspection of the chest Resp: Effort & Inspection: normal respiratory effort and not labored Auscultation: clear to auscultation bilaterally and no crackles Cardio: Rate: regular rate Rhythm: regular rhythm Heart sounds: no murmurs GI: Inspection: non-distended GI Palp: Yes Soft to palpation and No Tenderness to palpation present (GI) Auscultation: normal bowel sounds : General: Yes bladder normal to palpation Back/Spine/Pelvis: Back: no CVA tenderness Other: tender midline to paraspinal lower spine lumbar region Skin: General skin exam: normal color Rashes: no rashes Wounds: no wounds Neuro: General: patient oriented x3, moves all extremities and no meningeal signs Extrem: General: normal to inspection Psych: Mental Status: mental status grossly normal Affect: normal affect Attitude: cooperative Course Vital Signs Vital signs: Vital Signs Temperature 36.4 C 10/26/24 00:05 Pulse Rate 106 H 10/26/24 00:05 Respiratory Rate 18 10/26/24 00:05 Blood Pressure 181/99 H 10/26/24 00:05 Pulse Oximetry 100 10/26/24 00:05 Oxygen Delivery Room Air 10/26/24 00:05 Temperature 36.4 C 10/26/24 00:05 Pulse Rate 80 10/26/24 01:01 Respiratory Rate 18 10/26/24 01:01 Blood Pressure 158/78 H 10/26/24 01:01 Pulse Oximetry 100 10/26/24 01:01 Oxygen Delivery Room Air 10/26/24 01:01 MDM - Back Pain/Injury MDM Narrative Medical decision making narrative: patient is a 44-year-old female who has been to the emergency room 12 times over year for pain medicine specifically Dilaudid. Patient is here for the same situation to desire dilaudid for her chronic back pain. We spent at least 10 minutes explaining that we cannot continue doing chronic pain management in the emergency room. I have declined to give the patient any pain medicine. I explained the situation to the patient that she is required to have pain management follow-up for as planned and give her pain medicine if they desire so. All in all, the patient was told that we cannot manage chronic pain in the emergency room especially given her narcotics. She was also told that she may return to the emergency room at any time if she felt she needed further evaluation and treatment. Patient does understand that we cannot continue giving heavy narcotics in the emergency room for chronic pain. Drug-seeking behaviors appreciated. Patient understands and acknowledges that we cannot give pain management. During her examination in the room she was not in acute pain on nor was she having difficulty sitting in bed or walking around in the emergency room and out the door. Female nurse Carmelita present during the entire discussion at the discharge. Discharge Plan Discharge Clinical Impression: Lumbago Qualifiers: Chronicity: acute Back pain laterality: unspecified Sciatica presence: unspecified whether sciatica present Qualified Code(s): M54.50 - Low back pain, unspecified Patient Disposition: Home Condition: Stable Instructions: Acute Low Back Pain (ED) Additional Instructions: Please follow-up with the commercial lawn specialist as planned. They will need to give you pain medicine. In emergency room cannot treat or monitor chronic pain. Patient Language: Nepalese Follow-up/Referrals: UNKNOWN,DOCTOR [Primary Care Provider] - Time of Disposition: 00:54
--- OUTSIDE RECORDS SUMMARY | 2024-10-26 00:08 | XMS_ITS | Encounter Summary ---
Author Organization [facility] Address [address] [place] [address] Care Team Providers Care Turn Laster Name Role Phone Hermes Ramirez MD Primary Care Provider Reason for Visit * Reason Onset Date Comments Refill Request 04/01/2021 Encounter Details Date Type Department Care Team (Late st Contact Info) Description 04/01/2021 Refill [facility] [address] [address] [place] [address] Lyly Mccollum MD [address] [facility] [address] [place] [address] Refill Request Social History Tobacco [...] on file Legal Sex Female 1:03 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 No / Unsure 03/02/2021 2:55 PM SEWAGE RETICULATION DRAFTING OFFICER documented as of this encounter Plan of Treatment Not on file documented as of this encounter Visit Diagnoses Not on filedocumented in this encounter Additional Health Concerns Assessment Noted Time PHQ-9 Depression Total Score: 9 03/02/20 3:09 PM SEWAGE RETICULATION DRAFTING OFFICER PHQ-2 Depression Total Score: 0 03/10/20 11:51 AM SEWAGE RETICULATION DRAFTING OFFICER documented as of this encounter Care Teams Turn Laster Relationship Specialty Start Date End Date Hermes Ramirez MD [address] [place] [address] PCP - General 05/28/20 documented as of this encounter
--- OUTSIDE RECORDS SUMMARY | 2024-10-26 00:08 | XMS_ITS | Encounter Summary ---
Author Organization [facility] Address [address] [place] [address] Care Team Providers Care Zyglo Technician Name Role Phone Ashley ZUNIGA MD, Hermes Perez Primary Care Provid er Lyly Fiore NP Primary Care Provider Encounter Details Date Type Department Care Team (Late st Contact Info) Description 02/22/2024 Hospital Follow-up Call [facility] Unit [address] [place] [address] Zulma Ardon, RN Social History Tobacco Use [...] any time in the past 12 m [facility], were you homeless or living in a fci (including now)? No 02/20/2024 Comments No Sex and Gender Information Value Date Recorded Sex Assigned at Female 04/05/2024 4:26 PM PIPELINE OPERATOR Legal Sex Female 9:15 PM PIPELINE OPERATOR Gender Identity Not on file Sexual [...] Rhinovirus 02/16/2024 02/16/2024 02/26/2024 12:3 2 AM PIPELINE OPERATOR COVID-19 Rule Out 08/26/2024 08/26/2024 08/26/2024 11:07 PM CDT Respiratory Rule Out 08/26/2024 08/26/2024 025 11:06 PM CDT documented as of this encounter Care Teams Zyglo Technician Relationship Specialty Start Date End Date Hermes Ramirez III, MD [address] [address] PCP - General FAMILY PRACTICE 06/20/17 04/13/24 Lyly Fiore NP [address] [place] [address] PCP - General NURSE PRACTITIONER 04/14/24 documented as of this encounter
--- OUTSIDE RECORDS SUMMARY | 2024-10-26 00:08 | XMS_ITS | Encounter Summary ---
Author Organization [facility] Address [address] [place] [address] Care Team Providers Care Shactor Helper Name Role Phone Hermes Ramirez MD Primary Care Provider Reason for Visit * Reason Onset Date Comments Refill Request 01/05/2021 Encounter Details Date Type Department Care Team (Late st Contact Info) Description 01/05/2021 Refill [facility] [address] [facility] [address] [place] [address] Vivian Ayala MD [address] [facility] [address] [place] [address] Refill Request Social History Tobacco [...] file 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
--- OUTSIDE RECORDS SUMMARY | 2024-10-26 00:08 | XMS_ITS | Clinical Summary ---
Author Organization [facility] Address [address] [place] [address] Care Team Providers Care Webmethods Architect Name Role Phone Chelsyolive Lyly ELISA Primary Care Provider [phone] Allergies Active Allergy Reactions Criticality Noted Date [...] mouth 2 (two) times a day. 12/30/19 20 Active gabapentin (NEURONTIN) 600 MG tablet Take 1 tablet (600 mg total) by mouth 2 (two) times daily. Active LORazepam (ATIVAN) 0.5 MG tablet Take 1 tablet (0.5 mg total) by mouth. 10/27/19 22 Active predniSONE (DELTASONE) 5 mg tablet Take 1 tablet (5 mg total) by mouth daily. Active azaTHIOprine (IMURAN) 50 MG tablet Take 1 tablet (50 mg total) by mouth daily. Active ENVARSUS XR 4 MG TABLET SR 24 HR Take 4 mg by mouth daily. Takes with 1 mg tablets x 3 (total dose is 7 mg) 11/30/19 24 Active venlafaxine (EFFEXOR) 37.5 MG tablet Take 1 tablet (37.5 mg total) by mouth daily. 60 tablet 02/20/20 24 Active amLODIPine (NORVASC) 5 MG tablet Take 1 tablet (5 mg total) by mouth daily. 025 Discontinued topiramate (TOPAMAX) 100 MG tablet Take 1 tablet (100 mg total) by mouth 2 (two) times daily. 10/28/19 22 025 Discontinued albuterol sulfate HFA 108 (90 Base) MCG/ACT inhaler Inhale 2 puffs into the lungs every 4 (four) hours as needed for Wheezing or Shortness of breath. 6.7 g 02/12/20 24 025 Discontinued ENVARSUS XR 1 MG TABLET SR 24 HR tablet Take 3 tablets (3 mg total) by mouth every morning before breakfast. Takes with 4 mg tablet for total of 7 mg daily 11/30/19 24 025 Discontinued Active Problems Problem Noted Date Diagnosed Date Acute CHF ([facility]) 02/20/2024 Viral infection 02/20/2024 Rectus sheath hematoma, initial encounter 2017 Cervical dysplasia 10/26/2016 History of vulvar dysplasia 10/26/2016 Gastric ulcer 10/24/2016 Pancreatitis ([facility]) 10/24/2016 Chronic kidney disease 10/24/2016 Anemia, unspecified 05/04/2012 Benign gestational thrombocytopenia ([facility]/HCC) History of cone biopsy of cervix 01/04/2012 History of liver transplant ([facility]) Acute pharyngitis 11/19/2010 Abdominal pain 11/13/2010 Aphthous ulcer 11/01/2010 Anxiety 07/21/2010 Encounters Date Type Department Care Team Description 10/25/2024 10:34 PM CDT - 10/25/2024 11:29 PM CDT Emergency [facility] [address] [place] [address] Zane Marie, DO Back Pain Discharge Disposition: Home or Self Care (Routine Discharge) 10/25/2024 Travel 10/23/2024 8:15 AM CDT - 10/23/2024 11:53 AM CDT Emergency [place] [facility] [address] [facility] [place] [address] Dolly Manriquez, SAMPLE TESTER GRINDER Back Pain; Headache Discharge Disposition: Home or Self Care (Routine Discharge) 10/23/2024 Travel 10/18/2024 9:00 PM CDT - 10/18/2024 10:23 PM CDT Emergency [facility] [address] [place] [address] Allen Foster MD Headache Discharge Disposition: Home or Self Care (Routine Discharge) 10/18/2024 Travel 10/17/2024 9:23 PM CDT - 10/17/2024 11:06 PM CDT Emergency [facility] [place] [facility] [address] [facility] [place] [address] Karmen Byrd PA Headache; Back Pain Discharge Disposition: Home or Self Care (Routine Discharge) 10/17/2024 Travel 10/15/2024 9:28 AM CDT - 10/15/2024 11:59 AM CDT Emergency [facility] [address] [facility] [place] [address] Bharat Carroll MD McHood, Jillian M, SAMPLE TESTER GRINDER Headache; Back Pain Discharge Disposition: Home or Self Care (Routine Discharge) 10/15/2024 Travel 10/11/2024 5:04 AM CDT - 10/11/2024 5:19 AM CDT Emergency [facility] [address] [place] [address] Prasad Metcalf MD Headache Recurrent Or Know Dx Migraine; Back Pain Discharge Disposition: Home or Self Care (Routine Discharge) 10/11/2024 Travel 09/14/2024 12:28 AM CDT - 09/14/2024 1:50 AM CDT Emergency [facility] [address] [facility] [place] [address] Zack Kc MD Back Pain; Headache Discharge Disposition: Home or Self Care (Routine Discharge) 09/13/2024 Travel 08/28/2024 10:52 PM CDT - 08/29/2024 3:30 AM CDT Emergency [facility] [address] [facility] [place] [address] Radu Loya MD Cough; Vomiting; URI Discharge Disposition: Home or Self Care (Routine Discharge) 08/28/2024 Travel 08/26/2024 10:28 PM CDT - 08/27/2024 12:30 AM T Emergency [facility] [address] [facility] [place] [address] Karmen Byrd PA Medical Screening Discharge Disposition: Home or Self Care (Routine Discharge) 08/26/2024 Travel 08/08/2024 10:19 PM CDT - 08/08/2024 10:39 PM CDT Emergency [facility] [address] [facility] [place] [address] Roopa Damon NP Back Pain Discharge Disposition: Home or Self Care (Routine Discharge) 08/08/2024 Travel 08/07/2024 11:33 PM CDT - 08/08/2024 12:45 AM CDT Emergency [facility] [address] [place] [address] Danish Menjivar MD Back Pain; Urinary Symptoms Discharge Disposition: Home or Self Care (Routine Discharge) 08/07/2024 Travel 07/31/2024 1:03 PM CDT - 07/31/2024 2:31 PM CDT Emergency [facility] [address] [place] [address] Back Pain; Leg Pain Discharge Disposition: Home or Self Care (Routine Discharge) 07/31/2024 12:15 AM CDT - 07/31/2024 1:13 AM CDT [facility] [address] [place] [address] Back Pain Discharge Disposition: Left Against Medical [...] Sex Assigned at Female 04/05/2024 4:26 PM SHADE CUTTER Legal Sex Female 9:15 PM SHADE CUTTER Gender Identity Not on file Sexual Orientation Not on file Last Filed Vital Signs Vital Sign Reading Time Taken Comments Blood Pressure 157/97 10/25/2024 11:00 PM CDT Pulse 109 10/25/2024 10:38 PM CDT Temperature 37.2 C (98.9 F) 10/25/2024 10:38 PM CDT Respiratory Rate 20 10/25/2024 10:38 PM CDT Oxygen Saturation 100% 10/25/2024 11:15 PM CDT Inhaled Oxygen Concentration - - Weight 86 kg (189 lb 9.6 oz) 10/25/2024 10:38 PM CDT Height 157.5 cm (5' 2) 10/25/2024 10:38 PM CDT Body Mass Index 34.68 10/25/2024 10:38 PM CDT Plan of Treatment Health Maintenance [...] - 145 MMOL/L 08/29/2024 12:04 AM T [facility] POTASSIUM S/P/B 4.0 3.6 - 5.0 MMOL/L 08/29/2024 12:04 AM [facility] CHLORIDE S/P/B 111 97 - 115 MMOL/L 08/29/2024 12:04 AM [facility] CO2 26.6 21.0 - 32.0 MMOL/L 08/29/2024 12:04 AM [facility] GLUCOSE 104(H) 70 - 99 MG/DL 08/29/2024 12:04 AM [facility] Comment: FASTING GLUCOSE 100 TO 125 MG/DL IS CONSISTENT WITH IMPAIRED FASTING GLUCOSE. FASTING GLUCOSE >125 MG/DL IS CONSISTENT WITH DIABETES. RANDOM GLUCOSE >200 MG/DL WITH HYPERGLYCEMIC SYMPTOMS IS CONSISTENT WITH DIABETES. PER ADA GUIDELINES BUN 23(H) 7 - 18 MG/DL 08/29/2024 12:04 AM T [facility] CREATININE S/P/B 2.26(H) 0.55 - 1.02 MG/DL 08/29/2024 12:04 AM [facility] CALCIUM S/P/B 8.5 8.5 - 10.1 MG/DL 08/29/2024 12:04 AM [facility] BILIRUBIN TOTAL S/P/B 1.6(H) 0.2 - 1.0 MG/DL 08/29/2024 12:04 AM [facility] Comment: THIS ASSAY IS NOT RECOMMENDED FOR PATIENTS UNDERGOING TREATMENT WITH ELTROMBOPAG DUE TO THE POTENTIAL FOR FALSELY ELEVATED RESULTS. ALKALINE PHOSPHATASE S/P/B 244(H) 37 - 98 U/L 08/29/2024 12:04 AM [facility] AST 25 15 - 37 U/L 08/29/2024 12:04 AM [facility] ALT 21 13 - 56 U/L 08/29/2024 12:04 AM [facility] TOTAL PROTEIN S/P/B 6.2(L) 6.4 - 8.0 G/DL 08/29/2024 12:04 AM [facility] ALBUMIN S/P/B 3.3(L) 3.4 - 5.0 G/DL 08/29/2024 12:04 AM [facility] ANION GAP 2.4 2.0 - 10.0 MMOL/L 08/29/2024 12:04 AM [facility] OSMOLALITY (CALC) 294 MOSM/KG 025 12:04 AM [facility] GFR ESTIMATE 27(L) >90 ML/MIN/1. 73 M2 08/29/2024 12:04 AM [facility] GFR NOTES GFR REFERENCE S: 08/29/2024 12:04 AM [facility] Comment: THE ESTIMATED GFR IS CALCULATED [...] CDT Radu Loya MD LABORATORY Final Result [facility] [address] [place] [address], * (ABNORMAL) CBC W/DIFF AUTOMATED (08/28/2024 11:31 PM CDT) Only the most recent of3 resultswithin the time period is included. WBC 5.58 4.00 - 10.80 x10'3/uL 08/28/2024 11:44 PM CDT [facility] RBC 3.09(L) 4.10 - 5.40 x10'6/uL 08/28/2024 11:44 PM CDT [facility] HGB 12.4 12.0 - 16.0 G/DL 08/28/2024 11:44 PM CDT [facility] HCT 33.6(L) 36.0 - 47.0 % 08/28/2024 11:44 PM CDT [facility] MCV 108.7(H) 78.0 - 100.0 FL 08/28/2024 11:44 PM CDT [facility] MCH 40.1(H) 27.0 - 31.0 PG 08/28/2024 11:44 PM CDT [facility] MCHC 36.9(H) 33.0 - 36.0 G/DL 08/28/2024 11:44 PM CDT [facility] RDW 13.9 11.5 - 14.5 % 08/28/2024 11:44 PM CDT [facility] PLT 123(L) 150 - 350 x10'3/uL 08/28/2024 11:44 PM CDT [facility] MPV 11.0(H) 7.4 - 10.4 FL 08/28/2024 11:44 PM CDT [facility] DIFFERENTIAL TYPE AUTOMATED 08/28/2024 11:44 PM CDT [facility] SEG NEUTROPHILS 73.3 % 11:44 PM CDT [facility] LYMPHOCYTES 15.6 % 08/28/2024 11:44 PM CDT [facility] MONOCYTES 8.6 % 08/28/2024 11:44 PM CDT [facility] EOSINOPHILS 1.6 % 08/28/2024 11:44 PM CDT [facility] BASOPHILS 0.2 % 08/28/2024 11:44 PM CDT [facility] IMMATURE GRANS % 0.7 % 08/29/19 11:44 PM T [facility] NRBC 0.0 % 08/28/2024 11:44 PM CDT [facility] ABS. NEUTROPHILS 4.09 1.60 - 8.30 x10'3/uL 08/28/2024 11:44 PM T [facility] ABS. LYMPHOCYTES 0.87 0.80 - 4.70 x10'3/uL 08/28/2024 11:44 PM T [facility] ABS. MONOCYTES 0.48 0.00 - 1.50 x10'3/uL 08/28/2024 11:44 PM T [facility] ABS. EOSINOPHILS 0.09 0.00 - 0.40 x10'3/uL 08/28/2024 11:44 PM T [facility] ABS. BASOPHILS 0.01 0.00 - 0.20 x10'3/uL 08/28/2024 11:44 PM CDT [facility] ABS. IMMATURE GRANULOCYTES 0.04(H) 0.00 - 0.03 x10'3/uL 08/28/2024 11:44 PM CDT [facility] ABS. NUCLEATED RBC'S 0.00 0.00 - 0.01 x10'3/uL 08/28/2024 11:44 PM CDT [facility] 08/28/2024 11:3 1 PM CDT Radu Loya MD LABORATORY Final Result [facility] [address] [place] [address], * Critical Care (08/28/2024 11:05 PM CDT) [...] or life-threatening deterioration of the following conditions: TRAVOGRAPH OPERATOR failure or compromise and respiratory failure Critical [...] PM Narrative 08/26/2024 11:21 PM CDT [address] [place] [address] EXAMINATION: Chest X-Ray 2 View EXAM DATE/TIME: [...] Procedure Note David Hart MD - 08/26/[address] [place], [place] [address] EXAMINATION: Chest X-Ray 2 View EXAM DATE/TIME: [...] IA NEGATIVE NEGATIVE 08/26/2024 11:07 PM CDT [facility] Comment: NEGATIVE RESULTS SHOULD [...] SPECIMEN TYPE NASAL 08/26/2024 10:40 PM CDT [facility] NASAL NASAL STRUCTURE / Unknown 08/26/2024 10:39 PM CDT us Karmen EDMOND MICROBIOLOGY - GENERAL ORDERABLES Final Result [facility] [address] [place] [address], [place] [phone] * INFLUENZA A & B (08/26/2024 10:39 PM CDT) Pathologist [facility] SPECIMEN TYPE (INFLUENZA) NASAL 08/26/2024 10:40 PM CDT [facility] INFLUENZA A NEGATIVE NEGATIVE 08/26/2024 11:06 PM CDT [facility] INFLUENZA B NEGATIVE NEGATIVE 08/26/2024 11:06 PM CDT [facility] NASAL STRUCTURE / Unknown 08/26/2024 10:39 PM CDT us Karmen EDMOND MICROBIOLOGY - GENERAL ORDERABLES Final Result [facility] [address] [place] [address], * (ABNORMAL) URINALYSIS (08/26/2024 10:39 PM CDT) Only the most recent of2 resultswithin the time period is included. SPECIMEN TYPE URINE VOIDED 10:40 PM [facility] COLOR (U) YELLOW 08/26/2024 11:02 PM [facility] TRANSPARENCY CLEAR 08/26/2024 11:02 PM [facility] SPECIFIC GRAVITY (U) 1.016 1.002 - 1.035 08/26/2024 11:02 PM [facility] U PH 6.0 5.0 - 9.0 08/26/2024 11:02 PM [facility] LEUKOCYTES (U) NEGATIVE NEGATIVE 08/26/2024 11:02 PM [facility] NITRITES NEGATIVE NEGATIVE 08/26/2024 11:02 PM [facility] PROTEIN RANDOM (U) TRACE(A) NEGATIVE 08/26/2024 11:02 PM [facility] GLUCOSE (U) NORMAL NORMAL 08/26/2024 11:02 PM [facility] KETONES MG/DL (U) NEGATIVE NEGATIVE 08/26/2024 11:02 PM [facility] UROBILINOGEN 2.0(H) 0 - 1 EU/DL 08/26/2024 11:02 PM [facility] BILIRUBIN (U) NEGATIVE NEGATIVE 08/26/2024 11:02 PM [facility] BLOOD (U) NEGATIVE NEGATIVE 08/26/2024 11:02 PM [facility] MUCUS FEW 08/26/2024 11:02 PM [facility] WBC/HPF 0-5 /HPF 08/26/2024 11:02 PM [facility] RBC/HPF 0-5 /HPF 08/26/2024 11:02 PM CDT [facility] SQUAMOUS EPITHELIALS MODERATE 08/26/2024 11:02 PM CDT [facility] URINE SPECIMEN FROM URETHRA / Unknown 08/26/2024 10:39 PM CDT us Karmen EDMOND URINE ORDERABLES Final Result [facility] [address] [place] [address], [place] [phone] * STREP A RAPID (08/26/2024 10:39 PM CDT) SPECIMEN SOURCE THROAT 08/26/2024 10:40 PM CDT [facility] RAPID STREP TEST NEGATIVE NEGATIVE 08/26/2024 11:06 PM CDT [facility] STRUCTURE OF ANTERIOR PORTION OF NECK / Unknown 08/26/2024 10:39 PM CDT us Karmen EDMOND MICROBIOLOGY - GENERAL ORDERABLES Final Result Performing Organization Address [facility] Co de Phone Number [facility] [address] [place] [address], [place] [phone] * MAGNESIUM (08/26/2024 10:39 PM CDT) MAGNESIUM 1.6 1.6 - 2.6 MG/DL 08/26/2024 11:20 PM CDT [facility] Comment:RESULT QUESTIONABLE DUE TO HEMOLYSIS, CONSIDER RECOLLECTION. 08/26/2024 10:3 9 PM CDT us Karmen EDMOND LABORATORY Final R esult [facility] [address] [place] [address], * (ABNORMAL) BASIC METABOLIC PANEL (08/08/2024 12:07 AM CDT) SODIUM S/P/B 137 136 - 145 MMOL/L 08/08/2024 12:36 AM CDT [facility] POTASSIUM S/P/B 4.5 3.5 - 5.1 MMOL/L 08/08/2024 12:36 AM CDT [facility] CHLORIDE S/P/B 111 97 - 115 MMOL/L 08/08/2024 12:36 AM CDT [facility] CO2 19.6(L) 21.0 - 32.0 MMOL/L 08/08/2024 12:36 AM CDT [facility] GLUCOSE 144(H) 74 - 106 MG/DL 08/08/2024 12:36 AM CDT [facility] BUN 28(H) 7 - 18 MG/DL 08/08/2024 12:36 AM CDT [facility] CREATININE S/P/B 2.01(H) 0.55 - 1.02 MG/DL 08/08/2024 12:36 AM CDT [facility] CALCIUM S/P/B 9.2 8.5 - 10.1 MG/DL 08/08/2024 12:36 AM CDT [facility] ANION GAP 6.4 2.0 - 10.0 MMOL/L 08/08/2024 12:36 AM CDT [facility] OSMOLALITY (CALC) 292 MOSM/KG 025 12:36 AM T [facility] Comment:REFERENCE RANGE NOT ESTABLISHED GFR ESTIMATE 31(L) >90 ML/MIN/1. 73 M2 08/08/2024 12:36 AM T [facility] GFR NOTES GFR REFERENCE S: 08/08/2024 12:36 AM CDT [facility] Comment: THE ESTIMATED [...] MD LABORATORY Final Result Performing Organization Address [facility] de Phone Number [facility] [address] [place] [address], [phone] * CULTURE URINE (08/07/2024 11:55 PM CDT) SPEC DESCRIPTION URINE, UNSPECIFIED 08/07/2024 11:55 PM CDT [facility] SPECIAL REQUESTS NO SPECIAL REQUEST 08/07/2024 11:55 PM CDT [facility] CULTURE RESULT NO GROWTH (< OR = 1,000 CFU/ML) 08/09/2024 9:03 AM CDT [facility] URINE SPECIMEN / Unknown 08/07/2024 11:55 PM CDT 08/08/2024 12:15 AM CDT us Danish Menjivar MD MICROBIOLOGY - GENERAL ORDER KAREN Final Result Performing Organization Address [facility] Co de Phone Number [facility] [address] [place] [address], [phone] * HUMAN PAPILLOMAVIRUS, HIGH-RISK TYPES (06/20/2022 12:00 PM CDT) SPECIMEN CERVICAL/END OCERVICAL 06/22/2022 8:18 AM CDT [facility] HPV DNA HIGH RISK NEGATIVE NEGATIVE 06/22/2022 7:35 PM CDT [facility] Comment:SEE CYTOLOGY REPORT 06/20/2022 12:0 0 PM CDT us Sekou Scherer MD PATHOLOGY/CYTOLOGY ORDER KAREN Final Result [facility] [address] [place] [address], * Cytopath Cerv/Vag Thin Layer (06/20/2022 7:46 AM CDT) THIN PREP PAP [facility] [address] [place] [address] Department of Pathology Pathology Report CERVICAL/VAGINAL PAP SMEAR REPORT Name: MISHA BROWNE Age: 7 1980 (Age: 41) Location: [facility] Sex: F Collected Date: 06/20/2022 [facility] #: [id number] Date Received: 06/22/2022 Date Reported: 06/24/2022 Provider: [...] Cohen (ASCP) CLINICAL HISTORY Z12.4 PAP HISTORY-NILM ANIMAL TECH SURGICAL HISTORY-HPV+ 05/17/16 LASER/CRYOTHERAPY ThinPrep Pap Test [...] not effective in detecting cervical adenocarcinoma. [facility] 06/20/2022 7:46 AM CDT 06/22/2022 7:46 AM CDT Comment:CERVICAL/ENDOCERVICA L us Sekou Scherer MD PATHOLOGY/CYTOLOGY ORDER KAREN Final Result [facility] [address] [place] [address], from Last 3 Months or Most Recently Relevant to Health Maintenance Insurance MEDICAID Advance Directives * Full Code (Latest Code Status on File) Date Activated Date Inactivated Comments 02/20/2024 1:27 AM 02/20/2024 11:44 AM * Full Code Date Activated Date Inactivated Comments 06/21/2017 12:22 AM 06/21/2017 8:16 PM Care Teams Webmethods Architect Relationship Specialty Start Date End Date Lyly Fiore NP [address] [place] [address] PCP - General NURSE PRACTITIONER 04/14/24
--- OUTSIDE RECORDS SUMMARY | 2024-10-26 00:08 | XMS_ITS | Encounter Summary ---
Author Organization [facility] Healthcare Address [address] [place] [address] Care Team Providers Care Government Gauger Name Role Phone Beatriz Lee MD Unavailable +- [phone] Lyly Fiore ARTIFICIAL FLY TIER Primary Care Provider Taylor Kitchen RN Unavailable Unav ailable Reason for Visit * Reason Onset Date Comments PMC Preprocedure 09/19/2024 Encounter Details Date Type Department Care Team (Late st Contact Info) Description 09/19/2024 Telephone [facility] [address] [facility] [address] [place], [place] [id number] Igor Graham MD [address] [place] [address] PMC Preprocedure Social History Tobacco Use Types Packs/Day Years Used Date Smoking Tobacco: Every Day Cigarettes Smokeless Tobacco: Never Comments:1 cigarette day Alcohol Use Standard Drinks/Week Comments Never 0 (1 standard drink = 0.6 oz pur e alcohol) rare [facility] Utilities Answer Date Recorded In the past 12 months has [employer], gas, oil, or water company threatened to [...] often do you attend chur ch or jainism services? Never 09/03/2024 Do you belong to any clubs o r organizations such as baptist groups, unions, fraternal or athletic groups, or [...] any time in the past 12 m [facility], were you homeless or living in a long-term (including now)? No 09/03/2024 Personal Safety Answer Date Recorded Have you ever been in or are you currently in a harmful physical or emotional relationship or is someone making you feel afraid or unsafe? Denies 09/02/2024 Comments No Sex and Gender Information Value Date Recorded Sex Assigned at Not on file Legal Sex Female 10:10 PM DISTRICT CAPTAIN Gender Identity Not on file Sexual Orientation [...] on filedocumented in this encounter Care Teams Government Gauger Relationship Specialty Start Date End Date Lyly Fiore NP [address] [place] [address] PCP - General Nurse Practitioner 05/29/24 Beatriz Lee MD [address] [place] [address] Referring Physician Gastroenterology 07/25/19 Taylor Kitchen, rug renovatorFiltering Machine Tender 05/29/24 documented as of this encounter
--- OUTSIDE RECORDS SUMMARY | 2024-10-26 00:08 | XMS_ITS | Encounter Summary ---
Author Organization [facility] Address [address] [place] [address] Care Team Providers Care Heading Machine Operator Name Role Phone Hermes Ramirez MD Primary Care Provider Reason for Visit * Reason Onset Date Comments Refill Request 02/15/2021 Encounter Details Date Type Department Care Team ([facility] st Contact Info) Description 02/15/2021 Refill [facility] [address] [phone] Allen Manzano PAVasquez [address] [facility] [address] [place] [address] Refill Request Social History Tobacco [...] file Legal Sex Female 1:03 PM HEALTH CARE FACILITIES INSPECTOR Gender Identity Not on file Sexual Orientation Not on file COVID-19 Exposure Response Date Recorded In the last month, have you been in contact with someone who was confirmed or suspected to have Coronavirus / COVID-19? Yes 02/17/2021 2:11 PM HEALTH CARE FACILITIES INSPECTOR documented as of this encounter Plan [...] documented as of this encounter Care Teams Heading Machine Operator Relationship Specialty Start Date End Date Hermes Ramirez MD [address] [place] [address] PCP - General 05/28/20 documented as of this encounter
--- OUTSIDE RECORDS SUMMARY | 2024-10-26 00:08 | XMS_ITS | Encounter Summary ---
Author Organization [facility] Address [address] [place] [address] Care Team Providers Care Leak Detector Name Role Phone Hermes Ramirez MD Primary Care Provider Reason for Visit * Reason Onset Date Comments Refill Request 01/07/2021 Encounter Details Date Type Department Care Team (Late st Contact Info) Description 01/07/2021 Refill [facility] [address] [facility] [address] [place], [place] [phone] Refill Request Social History Tobacco Use Types [...] file Legal Sex Female 1:03 PM SENIOR SOUS CHEF Gender Identity Not on file Sexual Orientation [...] documented as of this encounter Care Teams Leak Detector Relationship Specialty Start Date End Date Hermes Ramirez MD [address] [place] [address] PCP - General 05/28/20 documented as of this encounter
--- OUTSIDE RECORDS SUMMARY | 2024-10-26 00:08 | XMS_ITS | Encounter Summary ---
Author Organization [facility] Address [address] [place] [address] Care Team Providers Care Water Supply Engineer Name Role Phone Hermes Ramirez MD Primary Care Provider Reason for Visit * Reason Comments Clinical Social Work Intervention elsa dixon Encounter Details Date Type Department Care Team (Latest Contact Info) Description 01/19/2022 Patient Outreach [place] [facility] [address] [facility] [address] [place] [address] Ho Humphreys LCSW [address] [facility] [address] [place] [address] Clinical Social Work Intervention (scheduling) [...] on file Legal Sex Female 1:03 PM [employer] COUNCIL MEMBER Gender Identity Not on file Sexual [...] documented as of this encounter Care Teams Water Supply Engineer Relationship Specialty Start Date End Date Hermes Ramirez MD [address] [place], [place] [id number] PCP - General 05/28/20 documented as of this encounter
--- OUTSIDE RECORDS SUMMARY | 2024-10-26 00:08 | XMS_ITS | Continuity of Care Document ---
Author Organization [facility] Address [address] [place] [address] Phone Care Team Providers Care Energy And Sustainability Manager Name Role Phone Santana Timmons MD Unavailable Unavailable Procedures Procedure Date Subsequent Hospital Care Initial Inpatient Consult Advance Directives Directive Yes / No Effective Date File Name No Information Encounters Encounter Description Practice Location Reason(s) For Visit Diagnoses Date Provider Providers Copied on Encounter Subsequent Hospital Care [facility], [address] [place] [address], [id number], tel:[phone] [facility] No Information 1 Shanelle Dillon. [address] [place] [address], [id number], [place]. tel:[phone] Referring Provider: Hermes Ramirez , [address] [place] [address], [id number]. tel:[phone] Initial Inpatient Consult [facility], [address] [place] [address], [id number], tel:[phone] [facility] No Information Shanelle Dillon. [address] [place] [address], [id number], . tel:[phone] Referring Provider: Hermes Ramirez [address], [address]. tel:[phone] Family History Family Member Type Diagnosis Age At Onset No Information Payers Payer name Insurance type Covered libertarian ID Authoriza tiyoan(s) [facility] [id number] Social History Type Description Quantity Date Captured Comments Sex Female Smoking Status No Information Chief Complaint And Reason For Visit No Information History Of Present Illness Encounter Date Complaint History Of Prese nt Illness No Information Instructions Date Instruction Additional Infor mation No Information Assessments Type Assessment Date No Information
--- OUTSIDE RECORDS SUMMARY | 2024-10-26 00:09 | XMS_ITS | Encounter Summary ---
Author Organization [facility] Address [address] [place] [address] Care Team Providers Care Director Of Math Name Role Phone Ashley ZUNIGA MD, Hermes Perez Primary Care Provid er Lyly Fiore NP Primary Care Provider [phone] Encounter Details Date Type Department Care Team (Late st Contact Info) Description 08/22/2018 Abstract [facility] [address] [place] [id number] Social History Tobacco Use Types Packs/Day Years Used Date Smoking Tobacco: Every Day Cigarettes 0.5 15 Smokeless Tobacco: Never Alcohol Use Standard Drinks/Week Comments No 0 (1 standard drink = 0.6 oz pur e alcohol) Comments No Sex and Gender Information Value Date Recorded Sex Assigned at Female 04/05/2024 4:26 PM COMMUNICATIONS SUPERVISOR Legal Sex Female 9:15 PM COMMUNICATIONS SUPERVISOR Gender Identity Not on file Sexual Orientation Not on file documented as of this encounter Plan of Treatment Not on file documented as of this encounter Visit Diagnoses Not on filedocumented in this encounter Additional Health Concerns Infection Onset Date Last Indicated Resolved Time COVID-19 Rule Out 03/30/2020 03/30/2020 03/30/2020 9:29 PM COMMUNICATIONS SUPERVISOR COVID-19 Rule Out 03/30/2020 03/30/2020 03/31/2020 12:28 PM COMMUNICATIONS SUPERVISOR COVID-19 Rule Out 02/16/2024 02/16/2024 02/16/2024 9:16 PM COMMUNICATIONS SUPERVISOR Rhinovirus 02/16/2024 02/16/2024 02/26/2024 12:3 2 AM COMMUNICATIONS SUPERVISOR COVID-19 Rule Out 08/26/2024 08/26/2024 08/26/2024 11:07 PM CDT Respiratory Rule Out 08/26/2024 08/26/2024 025 11:06 PM CDT documented as of this encounter Care Teams Director Of Math Relationship Specialty Start Date End Date Hermes Ramirez III, MD [address] [facility] [address] [place] [address] PCP - General FAMILY PRACTICE 06/20/17 04/13/24 Lyly Fiore NP [address] [place] [address] PCP - General NURSE PRACTITIONER 04/14/24 documented as of this encounter
--- OUTSIDE RECORDS SUMMARY | 2024-10-26 00:09 | XMS_ITS ---
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 Marked as Active Follow-up on 05/09/2020 Kidney, Liver CoordinatorMisty Ash RN Phone: N/A Fax: N/A Email: N/A [place] Organ Diagnosis Organ Primary Contributory Kidney Calcineurin [...] N/A Palak Garnica MD Transplant Attending Physician [phone] [email or web address] Nirav Carpio MD Transplant Surgeon [phone] N/A Snow Orozco MD Transplant Key Operator [phone] [email or web address] Events Post-Transplant Pre-Transplant Admitted: 05/08/2020 Referred: 04/24/2020 Transplanted: 05/09/2020 Evaluation began: Discharged: 05/18/2020 Committee: 04/30/2020 Center waitlisted:
--- OUTSIDE RECORDS SUMMARY | 2024-10-26 00:09 | XMS_ITS | Encounter Summary ---
Author Organization [facility] Address [address] [place] [address] Care Team Providers Care Board Attendant Name Role Phone Ashley ZUNIGA MD, Hermes Perez Primary Care Provid er Lyly Fiore NP Primary Care Provider [phone] Encounter Details Date Type Department Care Team (Late st Contact Info) Description 08/25/2018 Abstract [facility] [address] [address] , Generic Conversion, Social History Tobacco Use Types Packs/Day Years Used Date Smoking Tobacco: Every Day Cigarettes 0.5 15 Smokeless Tobacco: Never Alcohol Use Standard Drinks/Week Comments No 0 (1 standard drink = 0.6 oz pur e alcohol) Comments No Sex and Gender Information Value Date Recorded Sex Assigned at Female 04/05/2024 4:26 PM CONSTRUCTION TECHNICIAN Legal Sex Female 9:15 PM CONSTRUCTION TECHNICIAN Gender Identity Not on file Sexual Orientation Not on file documented as of this encounter Plan of Treatment Not on file documented as of this encounter Visit Diagnoses Not on filedocumented in this encounter Additional Health Concerns Infection Onset Date Last Indicated Resolved Time COVID-19 Rule Out 03/30/2020 03/30/2020 03/30/2020 9:29 PM CONSTRUCTION TECHNICIAN COVID-19 Rule Out 03/30/2020 03/30/2020 03/31/2020 12:28 PM CONSTRUCTION TECHNICIAN COVID-19 Rule Out 02/16/2024 02/16/2024 02/16/2024 9:16 PM CONSTRUCTION TECHNICIAN Rhinovirus 02/16/2024 02/16/2024 02/26/2024 12:3 2 AM CONSTRUCTION TECHNICIAN COVID-19 Rule Out 08/26/2024 08/26/2024 08/26/2024 11:07 PM CDT Respiratory Rule Out 08/26/2024 08/26/2024 025 11:06 PM CDT documented as of this encounter Care Teams Board Attendant Relationship Specialty Start Date End Date Hermes Ramirez III, MD [address] [facility] [address] [place] [address] PCP - General FAMILY PRACTICE 06/20/17 04/13/24 Lyly Fiore NP [address] [place] [address] PCP - General NURSE PRACTITIONER 04/14/24 documented as of this encounter
--- OUTSIDE RECORDS SUMMARY | 2024-10-26 00:09 | XMS_ITS | Clinical Summary ---
Author Organization [facility] Address [address] [place] [address] Care Team Prov[address] Care Road Conductor Name Role Phone Beatriz Lee MD Unavailable [phone] Lyly Fiore POCKET MAKER Primary Care Provider Taylor Kitchen RN [...] t be different from the original. Lab: Replaced By [facility]. . . Pharmacy: [place], [place] Patient enrolled in [employer] assistance program for Envarsus until 03/2025 [facility] for script Problem Noted Date Diagnosed [...] with baseline creatinine ~2. Previously followed at [facility], but has she has been wanting to transfer care to [place] but has not been able to schedule an appointment. She follows with [facility]. Per Liver Transplant office [...] with baseline creatinine ~2. Previously followed at [facility], but has she has been wanting to transfer care to [place] but has not been able to schedule an appointment. She follows with [facility]. Per Liver Transplant office [...] with baseline creatinine ~2. Previously followed at [facility], but has she has been wanting to transfer care to [place] but has not been able to schedule an appointment. She follows with [facility]. Per Liver Transplant office [...] with baseline creatinine ~2. Previously followed at [facility], but has she has been wanting to transfer care to [place] but has not been able to schedule an appointment. She follows with [facility]. Per Liver Transplant office [...] with baseline creatinine ~2. Previously followed at [facility], but has she has been wanting to transfer care to [place] but has not been able to schedule an appointment. She follows with [facility]. Per Liver Transplant office [...] with baseline creatinine ~2. Previously followed at [facility], but has she has been wanting to transfer care to [place] but has not been able to schedule an appointment. She follows with [facility]. Per Liver Transplant office [...] with baseline creatinine ~2. Previously followed at [facility], but has she has been wanting to transfer care to [place] but has not been able to schedule an appointment. She follows with [facility]. Per Liver Transplant office [...] with baseline creatinine ~2. Previously followed at [facility], but has she has been wanting to transfer care to [place] but has not been able to schedule an appointment. She follows with [facility]. Per Liver Transplant office [...] with baseline creatinine ~2. Previously followed at [facility], but has she has been wanting to transfer care to [place] but has not been able to schedule an appointment. She follows with [facility]. Per Liver Transplant office [...] with baseline creatinine ~2. Previously followed at [facility], but has she has been wanting to transfer care to [place] but has not been able to schedule an appointment. She follows with [facility]. Per Liver Transplant office [...] with baseline creatinine ~2. Previously followed at [facility], but has she has been wanting to transfer care to [place] but has not been able to schedule an appointment. She follows with [facility]. Per Liver Transplant office [...] with baseline creatinine ~2. Previously followed at [facility], but has she has been wanting to transfer care to [place] but has not been able to schedule an appointment. She follows with [facility]. Per Liver Transplant office [...] with baseline creatinine ~2. Previously followed at [facility], but has she has been wanting to transfer care to [place] but has not been able to schedule an appointment. She follows with [facility]. Per Liver Transplant office [...] with baseline creatinine ~2. Previously followed at [facility], but has she has been wanting to transfer care to [place] but has not been able to schedule an appointment. She follows with [facility]. Per Liver Transplant office [...] with baseline creatinine ~2. Previously followed at [facility], but has she has been wanting to transfer care to [place] but has not been able to schedule an appointment. She follows with [facility]. Per Liver Transplant office [...] with baseline creatinine ~2. Previously followed at [facility], but has she has been wanting to transfer care to [place] but has not been able to schedule an appointment. She follows with [facility]. Per Liver Transplant office [...] with baseline creatinine ~2. Previously followed at [facility], but has she has been wanting to transfer care to [place] but has not been able to schedule an appointment. She follows with [facility]. Per Liver Transplant office [...] Transplant starting process of assuming care from [facility], but in short term they recommend patient follow up with renal transplant at [facility]. - She is NOW actively enrolled in the [employer] free patient assistance program through mar 2025 - script needs to be sent to [facility] (sent). Hyperbilirubinemia 04/16/2020 Assessment & Plan (04/16/2020 5:01 AM CUSTOM GRINDER): - T. Bili of 7 (last was [...] 07/25/2019 Assessment & Plan (04/16/2020 2:25 AM CUSTOM GRINDER): See hyperbili problem. Concern for ascites Assessment [...] 12/14/2016 Assessment & Plan (04/16/2020 2:26 AM CUSTOM GRINDER): - Chronic, concerned that this may be [...] kidney transplant 04/2020. 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 We would need to call [facility] to identify a contracted center ([phone]). She lives close enough to [place] that would be the most likely city she could travel to. She also noted that she could always remarry an ex- as he has insurance that may be covered at [facility]/. Appreciate note from nephrology and agree with restarting oral diuretics. Can continue tacrolimus at the current dose. MRI/MRCP completed and will review with radiology to identify if any role for PTC. Assessment & Plan (04/16/2020 2:26 AM CUSTOM GRINDER): S/p liver tranplant in 1992 for biliary [...] meds Assessment & Plan (04/16/2020 5:01 AM CUSTOM GRINDER): Unclear if progression of CKD vs acute [...] Cr of 1.8. She follows with local clinical faculty Dr. Mathew and thinks her baseline is 2.1. She was at 2.3 at OSH. She took some diuretics at home and was given lasix at OSH ED. --UA, urine lytes --get records from her clinical faculty to find out baseline --random tacro level --monitor Is & Os; avoid nephrotoxins Encounters Date Type Department Care Team Description 10/24/2024 Documentation [facility] Transplant Liver [address] [facility] [address] [id number] [place] [address] Taylor Kitchen RN 10/23/2024 Telephone [facility] Transplant Liver [address] [facility] [address] [phone] [place] [address] Liyah Kamara 09/26/2024 Telephone [facility] [place] [facility] [address] [place] [address] Advanced Medicine [address] [place] [address] Igor Graham MD Post-Op Call 09/25/2024 8:48 AM CDT - 09/25/2024 11:59 PM CDT Hospital Encounter [facility] [place] [facility] [address] [place] [address] for Advanced Medicine [address] [place] [address] Igor Graham MD Lumbar disc disease with radiculopathy (Primary Dx); Lumbar spondylosis Discharge Disposition: Discharge to home or self care 09/19/2024 Telephone [facility] [place] [facility] [address] [place] [address] for Advanced Medicine [address] [place] [address] Igor Graham MD PMC Preprocedure 09/09/2024 SHOP/CHAP Initial Eligibility Review [facility] OP CASE MANAGEMENT [address] [place] [address] Shireen Griffin RN 08/31/2024 11:48 PM CDT - 09/06/2024 4:45 PM CDT Hospital Encounter [facility] [address] [place] [address] Elisha Avila MD Freilich, MD Vicente Aguirre, Britta Alarcon MD Abdominal pain (Primary Dx); Liver transplant failure and rejection (HCC); Rhinovirus infection Discharge Disposition: Discharge to home or self care 08/27/2024 Telephone [facility] [place] [facility] [address] [place] [address] Igor Graham MD Pre Procedure 08/15/2024 10:30 AM CDT Clinical Support [place] [address] [facility] 1st [place] [address] Brielle Carrillo, PhD 08/15/2024 Results Follow-Up [facility] and [facility] Transplant Liver [address] [facility] [address] [phone] [place] [address] Taylor Kitchen RN Surgical pathology 08/14/2024 12:21 PM CDT - 08/14/2024 11:59 PM CDT Hospital Encounter [facility] Advanced Medicine [facility] [address] [place] [address] Igor Graham MD Lumbar spondylosis (Primary Dx); Lumbar disc disease with radiculopathy Discharge Disposition: Discharge to home or self care 08/02/2024 Orders Only [facility] [address] [place] [address] Beatriz Lee MD History of liver transplant (HCC); History of kidney transplant 08/01/2024 Telephone [facility] and [facility] Transplant Liver [address] [facility] [address] [phone] [place] [address] Misty Vail RN 07/29/2024 Telephone [facility] and [facility] Transplant Liver [address] [id number] [place] [address] JohnnyNikiLorena 07/26/2024 2:55 PM CDT - 07/26/2024 2:56 PM CDT Emergency [facility] Emergency Department [address] [place] [address] Discharge Disposition: Left without being seen from Last 3 Months Surgical History Surgery Date Site/Laterality Comments [place] COLONOSCOPY FLX DX W/ROMAIN J SPEC WHEN [...] = 0.6 oz pur e alcohol) rare [facility] Utilities Answer Date Recorded In the past 12 months has th [employer], gas, oil, or water [employer] threatened to shut off services in your [...] week 09/03/2024 How often do you attend [facility] or anabaptist services? Never 09/03/2024 Do you belong to any clubs o r organizations such as congregational groups, unions, fraternal or athletic groups, or [...] in the past [address] [facility], were you homeless or [...] on file Legal Sex Female 10:10 PM CUSTOM GRINDER Gender Identity Not on file Sexual [...] liver transplant (HCC) History of kidney transplant HEPATITIS PANEL, ACUTE Routine 6:35 AM CUSTOM GRINDER from Last 3 Months or Most Recently Relevant to Health Maintenance Results * Imaging Lumbar/Sacral Facet Medial Branch Block Bilateral (30011) (09/25/2024 9:47 AM CDT) Narrative [facility]_PACS[facility] - 09/25/2024 9:47 AM CDT The images from this study are not interpreted by Radiology. Please refer to the physician's procedure / OR operative note. Igor Janice Graham MD IMG PAIN MGMT PROCEDURE S [...] ORDERABLES Aniya l Result Performing Organization Address [facility] [place] [address] * Tacrolimus level trough (09/06/2024 9:48 AM CDT) Pathologist [facility] Tacrolimus trough 6.4 ng/mL Comment: Interpretive Data Testing performed by liquid chromatography-tandem mass spectrometry. Therapeutic concentrations vary depending on type of transplanted organ and time elapsed since transplant. Typical trough concentrations range from 5-15 ng/mL. This test was developed and its performance characteristics determined by the [facility] consistent with CLIA requirements. This test has not been cleared or approved by the [place] Food and Drug administration. Current interpretive data last reviewed 2019. Blood 09/06/2024 9:48 AM CDT 09/06/2024 10:15 AM CDT Lily Rico MD LAB BLOOD ORDERABLES Final Result Performing Organization Address [facility] [place] [address] * (ABNORMAL) Comprehensive metabolic panel (09/06/2024 9:48 AM CDT) [facility] [address] Sodium 139 135 - 145 mmol/L Potassium, pl 4.1 3.3 - 4.9 mmol/L [facility] Comment:Hemolyzed; Potassium value may be falsely elevated by as much as 0.3-0.5 mmol/L. Suggest redraw and reanalysis. Chloride 102 97 - 110 mmol/L [facility] CO2 26 22 - 32 mmol/L [facility] Anion gap 11 2 - 15 mmol/L [facility] BUN 24 6 - 25 mg/dL [facility] Creatinine 2.04(H) 0.60 - 1.10 mg/dL [facility] Glucose 167 70 - 199 mg/dL [facility] Comment: Interpretive Data Fasting glucose [...] 2022. Calcium 8.8 8.5 - 10.3 mg/dL [facility] Bilirubin, total 0.6 0.1 - 1.2 mg/dL [facility] Protein, pl 6.1(L) 6.5 - 8.5 g/dL [facility] Albumin 3.5 3.5 - 5.0 g/dL [facility] Alk phos 241(H) 40 - 130 Units/L [facility] ALT 17 7 - 45 Units/L [facility] AST 41 10 - 45 Units/L [facility] Comment:Hemolyzed; result ma y be falsely elevated Blood 09/06/2024 9:48 AM CDT 09/06/2024 10:15 AM CDT us Britta Zhang MD LAB BLOOD ORDERABLES Aniya l Result [facility] [address] [facility] Department [place] [address] * (ABNORMAL) eGFR (09/05/2024 10:47 AM CDT) [...] MD LAB BLOOD ORDERABLES Aniya maguire Result [facility] [address] [facility] Department [place] [address] * Differential, auto (09/05/2024 10:47 AM CDT) Pathologist [facility] Neutrophil abs 3.84 1.50 - 6.50 K/cumm Imm gran abs 0.03 0.00 - 0.10 K/cumm [facility] Lymphocyte abs 1.33 0.80 - 3.30 K/cumm [facility] Monocyte abs 0.30 0.20 - 0.80 K/cumm [facility] Eosinophil abs 0.15 0.00 - 0.50 K/cumm [facility] Basophil abs 0.01 0.00 - 0.10 K/cumm [facility] Neutrophil pct 67.8 % [facility] Comment: Interpretive Data Percent cell count reference ranges are not reported, since discordance with absolute values may lead to misinterpretation of CBC data. Current Interpretive Data was last revised on 2017. Imm gran pct 0.5 % [facility] Comment: Interpretive Data Percent cell count reference ranges are not reported, since discordance with absolute values may lead to misinterpretation of CBC data. Current Interpretive Data was last revised on 2017. Lymphocyte pct 23.5 % [facility] Comment: Interpretive Data Percent cell count reference ranges are not reported, since discordance with absolute values may lead to misinterpretation of CBC data. Current Interpretive Data was last revised on 2017. Monocyte pct 5.3 % [facility] Comment: Interpretive Data Percent cell count reference ranges are not reported, since discordance with absolute values may lead to misinterpretation of CBC data. Current Interpretive Data was last revised on 2017. Eosinophil pct 2.7 % [facility] Comment: Interpretive Data Percent cell count reference ranges are not reported, since discordance with absolute values may lead to misinterpretation of CBC data. Current Interpretive Data was last revised on 2017. Basophil pct 0.2 % [facility] Comment: Interpretive Data Percent cell count reference ranges are not reported, since discordance with absolute values may lead to misinterpretation of CBC data. Current Interpretive Data was last revised on 2017. Blood 09/05/2024 10:4 7 AM CDT 09/05/2024 11:03 AM CDT us Britta Zhang MD LAB BLOOD ORDERABLES Aniya maguire Result [facility] [address] [facility] [place] [address] * Tacrolimus level trough (09/05/2024 10:47 AM CDT) [facility] Signature Tacrolimus trough 6.2 ng/mL Comment: Interpretive Data Testing performed by liquid chromatography-tandem mass spectrometry. Therapeutic concentrations vary depending on type of transplanted organ and time elapsed since transplant. Typical trough concentrations range from 5-15 ng/mL. This test was developed and its performance characteristics determined by the [facility] consistent with CLIA requirements. This test has not been cleared or approved by the US Food and Drug administration. Current interpretive data last reviewed 2019. Blood 09/05/2024 10:4 7 AM CDT 09/05/2024 11:04 AM CDT Narrative [facility] - 09/05/2024 1:14 PM CDT Draw exactly 12 HOURS after last dose of tacrolimus was given and just BEFORE giving next dose Britta Zhang MD LAB BLOOD ORDERABLES Aniya maguire Result Performing Organization Address [facility] de Phone Number [facility] Department [place] [address] * (ABNORMAL) CBC with auto differential (09/05/2024 10:47 AM CDT) Pathologist [facility] WBC 5.66 3.80 - 9.90 K/cumm Hgb 11.1(L) 11.9 - 15.5 g/dL [facility] Hct 31.6(L) 35.6 - 45.5 % [facility] Plt 115(L) 150 - 400 K/cumm [facility] MPV 11.4 9.1 - 12.3 fL [facility] RBC 2.81(L) 3.90 - 5.20 M/cumm [facility] MCV 112.5(H) 81.3 - 96.4 fL [facility] MCH 39.5(H) 27.1 - 33.3 pg [facility] MCHC 35.1 32.3 - 35.7 g/dL [facility] RDW CV 14.2 11.1 - 14.9 % [facility] RDW SD 59.0(H) 35.7 - 48.1 fL [facility] NRBC abs 0.00 0.00 - 0.01 K/cumm [facility] Blood 09/05/2024 10:4 7 AM CDT 09/05/2024 11:03 AM CDT us Britta Zhang MD LAB BLOOD ORDERABLES Aniya maguire Result Performing Organization Address [facility]/ZIP Co de Phone Number [facility] Department [place] [address] * (ABNORMAL) Comprehensive metabolic panel (09/05/2024 10:47 AM CDT) Pathologist [facility] Sodium 143 135 - 145 mmol/L Potassium, pl 4.2 3.3 - 4.9 mmol/L [facility] Chloride 102 97 - 110 mmol/L [facility] CO2 28 22 - 32 mmol/L [facility] Anion gap 13 2 - 15 mmol/L [facility] BUN 28(H) 6 - 25 mg/dL [facility] Creatinine 2.49(H) 0.60 - 1.10 mg/dL [facility] Glucose 127 70 - 199 mg/dL [facility] Comment: Interpretive Data Fasting glucose [...] 2022. Calcium 9.0 8.5 - 10.3 mg/dL [facility] Bilirubin, total 0.7 0.1 - 1.2 mg/dL [facility] Protein, pl 6.4(L) 6.5 - 8.5 g/dL [facility] Albumin 3.7 3.5 - 5.0 g/dL [facility] Alk phos 257(H) 40 - 130 Units/L [facility] ALT 18 7 - 45 Units/L [facility] AST 27 10 - 45 Units/L [facility] Blood 09/05/2024 10:4 7 AM CDT 09/05/2024 11:03 AM CDT us Britta Zhang MD LAB BLOOD ORDERABLES Aniya maguire Result [facility] [address] [facility] Department [place] [address] * (ABNORMAL) eGFR (09/04/2024 5:03 AM CDT) [...] MD LAB BLOOD ORDERABLES Aniya maguire Result [facility] Department [place] [address] * Differential, auto (09/04/2024 5:03 AM CDT) Pathologist [facility] Neutrophil abs 2.68 1.50 - 6.50 K/cumm Imm gran abs 0.01 0.00 - 0.10 K/cumm [facility] Lymphocyte abs 1.03 0.80 - 3.30 K/cumm [facility] Monocyte abs 0.23 0.20 - 0.80 K/cumm [facility] Eosinophil abs 0.09 0.00 - 0.50 K/cumm [facility] Basophil abs 0.00 0.00 - 0.10 K/cumm [facility] Neutrophil pct 66.4 % [facility] Comment: Interpretive Data Percent cell count reference ranges are not reported, since discordance with absolute values may lead to misinterpretation of CBC data. Current Interpretive Data was last revised on 2017. Imm gran pct 0.2 % [facility] Comment: Interpretive Data Percent cell count reference ranges are not reported, since discordance with absolute values may lead to misinterpretation of CBC data. Current Interpretive Data was last revised on 2017. Lymphocyte pct 25.5 % [facility] Comment: Interpretive Data Percent cell count reference ranges are not reported, since discordance with absolute values may lead to misinterpretation of CBC data. Current Interpretive Data was last revised on 2017. Monocyte pct 5.7 % [facility] Comment: Interpretive Data Percent cell count reference ranges are not reported, since discordance with absolute values may lead to misinterpretation of CBC data. Current Interpretive Data was last revised on 2017. Eosinophil pct 2.2 % [facility] Comment: Interpretive Data Percent cell count reference ranges are not reported, since discordance with absolute values may lead to misinterpretation of CBC data. Current Interpretive Data was last revised on 2017. Basophil pct 0.0 % [facility] Comment: Interpretive Data Percent cell count reference ranges are not reported, since discordance with absolute values may lead to misinterpretation of CBC data. Current Interpretive Data was last revised on 2017. Blood 09/04/2024 5:03 AM CDT 09/04/2024 5:10 AM CDT Britta Zhang MD LAB BLOOD ORDERABLES Aniya maguire Result [facility] One [facility] [place] [address] * Tacrolimus level trough (09/04/2024 5:03 AM CDT) Tacrolimus trough 10.9 ng/mL Comment: Interpretive Data Testing performed by liquid chromatography-tandem mass spectrometry. Therapeutic concentrations vary depending on type of transplanted organ and time elapsed since transplant. Typical trough concentrations range from 5-15 ng/mL. This test was developed and its performance characteristics determined by the [facility] consistent with CLIA requirements. This test has not been cleared or approved by the US Food and Drug administration. Current interpretive data last reviewed 2019. Blood 09/04/2024 5:03 AM CDT 09/04/2024 5:10 AM CDT Narrative [facility] - 09/04/2024 7:32 AM CDT Draw exactly 12 HOURS after last dose of tacrolimus was given and just BEFORE giving next dose Britta Zhang MD LAB BLOOD ORDERABLES Aniya maguire Result Performing Organization Address [facility] Co de Phone Number [facility] Department [place] [address] * (ABNORMAL) CBC with auto differential (09/04/2024 5:03 AM CDT) WBC 4.04 3.80 - 9.90 K/cumm Hgb 11.8(L) 11.9 - 15.5 g/dL [facility] Hct 32.9(L) 35.6 - 45.5 % [facility] Plt 66(L) 150 - 400 K/cumm [facility] MPV 12.0 9.1 - 12.3 fL [facility] RBC 2.96(L) 3.90 - 5.20 M/cumm [facility] MCV 111.1(H) 81.3 - 96.4 fL [facility] MCH 39.9(H) 27.1 - 33.3 pg [facility] MCHC 35.9(H) 32.3 - 35.7 g/dL [facility] RDW CV 14.0 11.1 - 14.9 % [facility] RDW SD 56.5(H) 35.7 - 48.1 fL [facility] NRBC abs 0.00 0.00 - 0.01 K/cumm [facility] Blood 09/04/2024 5:03 AM CDT 09/04/2024 5:10 AM CDT Britta Zhang MD LAB BLOOD ORDERABLES Aniya maguire Result Performing Organization Address [facility]/ZIP Co de Phone Number CERNER [facility] Department [place] [address] * (ABNORMAL) Comprehensive metabolic panel (09/04/2024 5:03 AM CDT) Sodium 137 135 - 145 mmol/L Potassium, pl 4.2 3.3 - 4.9 mmol/L [facility] Chloride 100 97 - 110 mmol/L [facility] CO2 26 22 - 32 mmol/L [facility] Anion gap 11 2 - 15 mmol/L [facility] BUN 30(H) 6 - 25 mg/dL [facility] Creatinine 2.87(H) 0.60 - 1.10 mg/dL [facility] Glucose 153 70 - 199 mg/dL [facility] Comment: Interpretive Data Fasting glucose [...] 2022. Calcium 8.5 8.5 - 10.3 mg/dL [facility] Bilirubin, total 0.8 0.1 - 1.2 mg/dL [facility] Protein, pl 6.6 6.5 - 8.5 g/dL [facility] Albumin 3.5 3.5 - 5.0 g/dL [facility] Alk phos 240(H) 40 - 130 Units/L [facility] ALT 12 7 - 45 Units/L [facility] AST 31 10 - 45 Units/L [facility] Blood 09/04/2024 5:03 AM CDT 09/04/2024 5:10 AM CDT us Britta Zhang MD LAB BLOOD ORDERABLES Aniya andrez [facility] [place] [address] * (ABNORMAL) eGFR (09/03/2024 5:21 AM CDT) [facility] [address] eGFR 20(L) >=60 mL/min/1. 73 m2 Comment: [...] MD LAB BLOOD ORDERABLES Aniya maguire Result [facility] Department [place] [address] * Differential, auto (09/03/2024 5:21 AM CDT) [facility] [address] Neutrophil abs 3.79 1.50 - 6.50 K/cumm Imm gran abs 0.03 0.00 - 0.10 K/cumm [facility] Lymphocyte abs 0.84 0.80 - 3.30 K/cumm [facility] Monocyte abs 0.25 0.20 - 0.80 K/cumm [facility] Eosinophil abs 0.05 0.00 - 0.50 K/cumm [facility] Basophil abs 0.00 0.00 - 0.10 K/cumm [facility] Neutrophil pct 76.5 % [facility] Comment: Interpretive Data Percent cell count reference ranges are not reported, since discordance with absolute values may lead to misinterpretation of CBC data. Current Interpretive Data was last revised on 2017. Imm gran pct 0.6 % [facility] Comment: Interpretive Data Percent cell count reference ranges are not reported, since discordance with absolute values may lead to misinterpretation of CBC data. Current Interpretive Data was last revised on 2017. Lymphocyte pct 16.9 % [facility] Comment: Interpretive Data Percent cell count reference ranges are not reported, since discordance with absolute values may lead to misinterpretation of CBC data. Current Interpretive Data was last revised on 2017. Monocyte pct 5.0 % [facility] Comment: Interpretive Data Percent cell count reference ranges are not reported, since discordance with absolute values may lead to misinterpretation of CBC data. Current Interpretive Data was last revised on 2017. Eosinophil pct 1.0 % [facility] Comment: Interpretive Data Percent cell count reference ranges are not reported, since discordance with absolute values may lead to misinterpretation of CBC data. Current Interpretive Data was last revised on 2017. Basophil pct 0.0 % [facility] Comment: Interpretive Data Percent cell count reference ranges are not reported, since discordance with absolute values may lead to misinterpretation of CBC data. Current Interpretive Data was last revised on 2017. Blood 09/03/2024 5:21 AM CDT 09/03/2024 5:31 AM CDT us Britta Zhang MD LAB BLOOD ORDERABLES Aniya maguire Result [facility] Department [place] [address] * Tacrolimus level trough (09/03/2024 5:21 AM CDT) [facility] [address] Tacrolimus trough 17.8 ng/mL Comment: Interpretive Data Testing performed by liquid chromatography-tandem mass spectrometry. Therapeutic concentrations vary depending on type of transplanted organ and time elapsed since transplant. Typical trough concentrations range from 5-15 ng/mL. This test was developed and its performance characteristics determined by the [facility] consistent with CLIA requirements. This test has not been cleared or approved by the US Food and Drug administration. Current interpretive data last reviewed 2019. Blood 09/03/2024 5:21 AM CDT 09/03/2024 5:31 AM CDT [facility]ative [facility] - 09/03/2024 9:19 AM CDT Draw exactly 12 HOURS after last dose of tacrolimus was given and just BEFORE giving next dose us Britta Zhang MD LAB BLOOD ORDERABLES Aniya maguire Result [facility] Department [place] [address] * (ABNORMAL) CBC with auto differential (09/03/2024 5:21 AM CDT) WBC 4.96 3.80 - 9.90 K/cumm Hgb 11.3(L) 11.9 - 15.5 g/dL [facility] Hct 30.7(L) 35.6 - 45.5 % [facility] Plt 83(L) 150 - 400 K/cumm [facility] MPV 11.0 9.1 - 12.3 fL [facility] RBC 2.84(L) 3.90 - 5.20 M/cumm [facility] MCV 108.1(H) 81.3 - 96.4 fL [facility] MCH 39.8(H) 27.1 - 33.3 pg [facility] MCHC 36.8(H) 32.3 - 35.7 g/dL [facility] RDW CV 13.9 11.1 - 14.9 % [facility] RDW SD 54.4(H) 35.7 - 48.1 fL [facility] NRBC abs 0.00 0.00 - 0.01 K/cumm [facility] Blood 09/03/2024 5:21 AM CDT 09/03/2024 5:31 AM CDT us Britta Zhang MD LAB BLOOD ORDERABLES Aniya maguire Result [facility] Department [place] [address] * (ABNORMAL) Comprehensive metabolic panel (09/03/2024 5:21 AM CDT) Pathologist [facility] Sodium 138 135 - 145 mmol/L Potassium, pl 4.7 3.3 - 4.9 mmol/L [facility] Chloride 101 97 - 110 mmol/L [facility] CO2 29 22 - 32 mmol/L [facility] Anion gap 8 2 - 15 mmol/L [facility] BUN 29(H) 6 - 25 mg/dL [facility] Creatinine 2.92(H) 0.60 - 1.10 mg/dL [facility] Glucose 113 70 - 199 mg/dL [facility] Comment: Interpretive Data Fasting glucose [...] 2022. Calcium 9.2 8.5 - 10.3 mg/dL [facility] Bilirubin, total 1.1 0.1 - 1.2 mg/dL [facility] Protein, pl 6.2(L) 6.5 - 8.5 g/dL [facility] Albumin 3.4(L) 3.5 - 5.0 g/dL [facility] Alk phos 233(H) 40 - 130 Units/L [facility] ALT 13 7 - 45 Units/L [facility] AST 22 10 - 45 Units/L [facility] Blood 09/03/2024 5:21 AM CDT 09/03/2024 5:31 AM CDT Britta Zhang MD LAB BLOOD ORDERABLES Aniya l Result Performing Organization Address [facility] Co de Phone Number [facility] [place] [address] * BK virus PCR quantitative Blood (09/02/2024 12:21 PM CDT) [facility] [address] [facility] BKV DNA result, pl Not Detected [facility] Comment: The quantifiable range of this assay is 21.5 IU/mL to 100,000,000 IU/mL (1.33 log IU/mL to 8.00 log IU/mL). Testing was performed by the [employer] BKV Quantatitive Test version 2.0 ([employer] Testing performed at [facility] Current Interpretive Data was last revised on 2021. Blood 09/02/2024 12:2 1 PM CDT 09/02/2024 12:52 PM CDT Britta Zhang MD LAB MICROBIOLOGY - GENERA L ORDERABLES Final Result Performing Organization Address [facility] Co de Phone Number [facility] [place] [address] [facility] * HLA Donor Specific Antibody Report [...] Result Performing Organization Address [facility] Co de Phone Number [email or web address] * Collection Task for HLA Antibody Screen (09/02/2024 12:21 PM CDT) [facility] [address] [facility] HLA Antibody Screen By Single Antigen Received Blood 09/02/2024 12:2 1 PM CDT 09/03/2024 10:59 AM CDT Britta Zhang MD LAB BLOOD ORDERABLES Aniya l Result Performing Organization Address [facility] Co de Phone Number ALEK [facility] Department [place] [address] * Cytomegalovirus (CMV) DNA PCR, quantitative Blood (09/02/2024 12:21 PM CDT) [facility] [address] CMV DNA Not Detected [facility] Comment: Interpretive Data: The quantifiable range of this assay is 34 IUnits/mL to 10,000,000 IUnits/mL (1.53 log IUnits/mL to 7.0 log IUnits/mL). Testing was performed by the JOHNNY 6800 CMV Test ([employer] Testing performed at [facility]. Current interpretive data was last revised on 2020. Blood 09/02/2024 12:2 1 PM CDT 09/02/2024 12:52 PM CDT Result [facility] Britta Zhang MD LAB MICROBIOLOGY - GENERA L ORDERABLES Final Result Performing Organization Address [facility] Co de Phone Number ALEK [facility] [place] [address] [facility] * (ABNORMAL) eGFR (09/02/2024 12:21 PM CDT) [facility] [address] eGFR 20(L) >=60 mL/min/1. 73 m2 Comment: [...] CDT Britta Zhang MD LAB BLOOD ORDERABLES Anyia maguire Result [facility] One [facility] [place] [address] * Blood culture Blood (09/02/2024 12:21 PM CDT) Report Final Report: No growth Blood 09/02/2024 12:2 1 PM CDT 09/02/2024 1:40 PM CDT Narrative ALEK [facility] - 09/06/2024 4:00 PM CDT From [...] have been verified by the [facility]. For questions about this culture, contact the Microbiology Laboratory at [phone]. Interpretive data was last revised on 24. us Britta Zhang MD LAB MICROBIOLOGY - GENERA L ORDERABLES Final Result [facility] [place] [address] * Blood culture Blood (09/02/2024 12:21 PM CDT) Report Final Report: No growth Blood 09/02/2024 12:2 1 PM CDT 09/02/2024 1:40 PM CDT N[facility]ative [facility] - 09/06/2024 4:00 PM CDT [...] have been verified by the [facility]. For questions about this culture, contact the Microbiology Laboratory at [phone]. Interpretive data was last revised on 24. Britta Zhang MD LAB MICROBIOLOGY - GENERA L ORDERABLES Final Result [facility] Department [place] [address] * (ABNORMAL) Renal function panel (09/02/2024 12:21 PM CDT) Pathologist [facility] Sodium 137 135 - 145 mmol/L Potassium, pl 3.9 3.3 - 4.9 mmol/L [facility] Chloride 97 97 - 110 mmol/L [facility] CO2 31 22 - 32 mmol/L [facility] Anion gap 9 2 - 15 mmol/L [facility] BUN 28(H) 6 - 25 mg/dL [facility] Creatinine 2.89(H) 0.60 - 1.10 mg/dL [facility] Glucose 162 70 - 199 mg/dL [facility] Comment: Interpretive Data Fasting glucose [...] 2022. Calcium 9.7 8.5 - 10.3 mg/dL [facility] Phosphorus, pl 4.1 2.3 - 4.5 mg/dL [facility] Albumin 3.5 3.5 - 5.0 g/dL [facility] Blood 09/02/2024 12:2 1 PM CDT 09/02/2024 12:42 PM CDT Britta Zhang MD LAB BLOOD ORDERABLES Aniya l Result [facility] [place] [address] * (ABNORMAL) eGFR (09/02/2024 5:16 AM CDT) [facility] [address] eGFR 19(L) >=60 mL/min/1. 73 m2 Comment: [...] Valiente MD LAB BLOOD ORDERABLES Final Result [facility] [place] [address] * Differential, auto (09/02/2024 5:16 AM CDT) [facility] [address] Neutrophil abs 3.97 1.50 - 6.50 K/cumm Imm gran abs 0.02 0.00 - 0.10 K/cumm [facility] Lymphocyte abs 1.10 0.80 - 3.30 K/cumm [facility] Monocyte abs 0.24 0.20 - 0.80 K/cumm [facility] Eosinophil abs 0.11 0.00 - 0.50 K/cumm [facility] Basophil abs 0.01 0.00 - 0.10 K/cumm [facility] Neutrophil pct 72.8 % [facility] Comment: Interpretive Data Percent cell count reference ranges are not reported, since discordance with absolute values may lead to misinterpretation of CBC data. Current Interpretive Data was last revised on 2017. Imm gran pct 0.4 % [facility] Comment: Interpretive Data Percent cell count reference ranges are not reported, since discordance with absolute values may lead to misinterpretation of CBC data. Current Interpretive Data was last revised on 2017. Lymphocyte pct 20.2 % [facility] Comment: Interpretive Data Percent cell count reference ranges are not reported, since discordance with absolute values may lead to misinterpretation of CBC data. Current Interpretive Data was last revised on 2017. Monocyte pct 4.4 % [facility] Comment: Interpretive Data Percent cell count reference ranges are not reported, since discordance with absolute values may lead to misinterpretation of CBC data. Current Interpretive Data was last revised on 2017. Eosinophil pct 2.0 % [facility] Comment: Interpretive Data Percent cell count reference ranges are not reported, since discordance with absolute values may lead to misinterpretation of CBC data. Current Interpretive Data was last revised on 2017. Basophil pct 0.2 % [facility] Comment: Interpretive Data Percent cell count reference ranges are not reported, since discordance with absolute values may lead to misinterpretation of CBC data. Current Interpretive Data was last revised on 2017. Blood 09/02/2024 5:16 AM CDT 09/02/2024 5:32 AM CDT us Bailee Valiente MD LAB BLOOD ORDERABLES Final Result [facility] One [facility] Department of Laboratories [place], [place] [id number] * Tacrolimus level trough (09/02/2024 5:16 AM CDT) [facility] [address] Tacrolimus trough 17.0 ng/mL Comment: Interpretive Data Testing performed by liquid chromatography-tandem mass spectrometry. Therapeutic concentrations vary depending on type of transplanted organ and time elapsed since transplant. Typical trough concentrations range from 5-15 ng/mL. This test was developed and its performance characteristics determined by the [facility] consistent with CLIA requirements. This test has not been cleared or approved by the [place] Food and Drug administration. Current interpretive data last reviewed 2019. Blood 09/02/2024 5:16 AM CDT 09/02/2024 5:32 AM CDT us Britta Zhang MD LAB BLOOD ORDERABLES Aniya maguire Result [facility] One [facility] [place] [address] * (ABNORMAL) CBC with auto differential (09/02/2024 5:16 AM CDT) WBC 5.45 3.80 - 9.90 K/cumm Hgb 11.7(L) 11.9 - 15.5 g/dL [facility] Hct 32.3(L) 35.6 - 45.5 % [facility] Plt 98(L) 150 - 400 K/cumm [facility] MPV 11.4 9.1 - 12.3 fL [facility] RBC 2.95(L) 3.90 - 5.20 M/cumm [facility] MCV 109.5(H) 81.3 - 96.4 fL [facility] MCH 39.7(H) 27.1 - 33.3 pg [facility] MCHC 36.2(H) 32.3 - 35.7 g/dL [facility] RDW CV 13.9 11.1 - 14.9 % [facility] RDW SD 56.6(H) 35.7 - 48.1 fL [facility] NRBC abs 0.00 0.00 - 0.01 K/cumm [facility] Blood 09/02/2024 5:16 AM CDT 09/02/2024 5:32 AM CDT us Bailee Valiente MD LAB BLOOD ORDERABLES Final Result ALEK [facility] One [facility] [place] [address] * (ABNORMAL) Comprehensive metabolic panel (09/02/2024 5:16 AM CDT) Sodium 137 135 - 145 mmol/L Potassium, pl 4.1 3.3 - 4.9 mmol/L [facility] Chloride 98 97 - 110 mmol/L [facility] CO2 32 22 - 32 mmol/L [facility] Anion gap 7 2 - 15 mmol/L [facility] BUN 29(H) 6 - 25 mg/dL [facility] Creatinine 3.05(H) 0.60 - 1.10 mg/dL [facility] Glucose 185 70 - 199 mg/dL [facility] Comment: Interpretive Data Fasting glucose [...] 2022. Calcium 9.0 8.5 - 10.3 mg/dL [facility] Bilirubin, total 1.0 0.1 - 1.2 mg/dL [facility] Protein, pl 6.3(L) 6.5 - 8.5 g/dL [facility] Albumin 3.8 3.5 - 5.0 g/dL [facility] Alk phos 223(H) 40 - 130 Units/L [facility] ALT 11 7 - 45 Units/L [facility] AST 24 10 - 45 Units/L [facility] Blood 09/02/2024 5:16 AM CDT 09/02/2024 5:32 AM CDT us Bailee Valiente MD LAB BLOOD ORDERABLES Final Result Performing Organization Address [facility] de Phone Number ALEK [facility] [place] [address] * Troponin I high-sensitivity 2-hour (09/01/2024 2:58 AM CDT) Trop I hs 5 <=17 ng/L Comment: Interpretive Data For further hscTnI resources including the diagnostic algorithm and an aid in interpretation, copy and paste this link: [email or web address]/[email or web address] Current Interpretive Data last revised 2019. Trop I hs delta 0 ng/L [facility] Trop I hs interp Insignificant [facility]ERNER [facility] Blood 09/01/2024 2:58 AM CDT 09/01/2024 3:13 AM CDT us Diana Cassidy MD LAB BLOOD ORDERABLES Fi nal Result Performing Organization Address [facility] de Phone Number ALEK [facility] Department [place] [address] * ECG 12-LEAD (09/01/2024 2:53 AM CDT) Narrative [facility] - 09/01/2024 2:53 AM CDT Elisha Avila MD 09/01/2024 3:24 AM ECG 12 lead Date/Time: 09/01/2024 2:53 AM Performed by: Elisha Avila MD Authorized by: Diana Cassidy MD us Diana Cassidy MD ECG ORDERABLES Final R esult Performing Organization Address [facility] Co de Phone Number [facility] * XR Chest PA Lateral 2 [...] Blood culture Blood (09/01/2024 2:18 AM CDT) [facility] [address] Direct Specimen Exam Molecular Analysis: Staphylococcus epidermidis (methicillin-resis tant) detected by [facility] BCID-GP panel. Single positive culture may represent contamination. This test does not exclude the possibility of a mixed bacterial infection. Notification of: Staphylococcus epidermidis (methicillin-resis tant) called to and read back by: Flower Moser MD ([phone]) on 09/02/2024 03:01:57 by: Radu Helm MT Direct Specimen Exam Stain: Gram Positive Cocci in clusters Time to culture positivity (anaerobic media): 21.4 hours Notification of: Gram Positive Cocci in clusters called to and read back by: Flower Moser MD ([phone]) on 09/02/2024 01:01:22 by: Radu Helm MT [facility] Report Final Report: Staphylococcus epidermidis Single blood culture positive for this microorganism. Isolate is a possible contaminant. If a similar isolate is recovered from a second blood culture collected within 3 days of this culture, both will be evaluated and, if determined to be the same species, antimicrobial susceptibility testing will be performed. (.) [facility] Organism STAPHYLOCOCCUS EPIDERMIDIS [facility] Blood 09/01/2024 2:18 AM CDT [...] have been verified by the [facility] Microbiology Laboratory. For questions about this culture, contact the Microbiology Laboratory at [phone]. Interpretive data was last revised on 24. Diana Cassidy MD LAB MICROBIOLOGY - [facility] ORDERABLES Final Result [facility] One [facility] Department [place] [address] * US Renal Transplant W Dopplers (09/01/2024 [...] Soto Mena M.D., Ph.D Diana Cassidy MD [facility] PROCEDURES Final Result * (ABNORMAL) Respiratory pathogen panel Nasopharyngeal (09/01/2024 12:58 AM CDT) Pathologist [facility] Influenza A RNA Not Detected Not Detected Influenza B RNA Not Detected Not Detected [facility] RSV RNA Not Detected Not Detected [facility] COVID-19 RNA Not Detected Not Detected [facility] Coronavirus 229E RNA Not Detected Not Detected [facility] Coronavirus HKU1 RNA Not Detected Not Detected [facility] Coronavirus NL63 RNA Not Detected Not Detected [facility] Coronavirus OC43 RNA Not Detected Not Detected [facility] Adenovirus DNA Not Detected Not Detected [facility] Metapneumovirus RNA Not Detected Not Detected [facility] Rhinovirus/Enterov irus RNA Detected(A) Not Detected [facility] Parainfluenza 1 RNA Not Detected Not Detected [facility] Parainfluenza 2 RNA Not Detected Not Detected [facility] Parainfluenza 3 RNA Not Detected Not Detected [facility] Parainfluenza 4 RNA Not Detected Not Detected [facility] B. pertussis DNA Not Detected Not Detected [facility] B. parapertussis DNA Not Detected Not Detected [facility] C. pneumoniae DNA Not Detected Not Detected [facility] M. pneumoniae DNA Not Detected Not Detected [facility] Nasopharyngeal 09/01/2024 12 :58 AM CDT 09/01/2024 2:52 AM CDT Narrative [facility] - 09/01/2024 3:48 AM CDT Is the Patient experiencing symptoms consistent with COVID?->Yes Surveillance testing for transplant patient?->No Interpretive Data The [employer] FilmArray Respiratory Panel (RP2.1) assay is a [...] assay has FDA clearance for testing of POCKET MAKER swabs. The performance of additional specimen types has been assessed by the performing laboratory. The performance characteristics of this assay have been determined by [facility] Molecular Infectious Disease Laboratory. Current interpretive data was last revised on 21. Diana Cassidy MD LAB MICROBIOLOGY - [facility] ORDERABLES Final Result [facility] [place] [address] * Troponin I high-sensitivity series (baseline, 2hr, 4hr, 6hr) (09/01/2024 12:57 AM CDT) [facility] [address] [facility] Trop I hs 5 <=17 ng/L Comment: Interpretive Data For further hscTnI resources including the diagnostic algorithm and an aid in interpretation, copy and paste this link: [email or web address].testcatalog.org/show/[email or web address] Current Interpretive Data last revised 2019. Blood 09/01/2024 12:5 7 AM CDT 09/01/2024 1:20 AM CDT Diana Cassidy MD LAB BLOOD ORDERABLES Fi nal Result Performing Organization Address [facility] Co de Phone Number [facility] Department [place] [address] * Sepsis Lactate w/ Reflex (09/01/2024 12:57 AM CDT) [facility] [address] Sepsis Lactate 1.8 0.7 - 2.0 mmol/L Blood 09/01/2024 12:5 7 AM CDT 09/01/2024 1:14 AM CDT Diana Cassidy MD LAB BLOOD ORDERABLES Fi nal Result Performing Organization Address City/[facility] Co de Phone Number [facility] [place] [address] * (ABNORMAL) eGFR (09/01/2024 12:57 AM CDT) [facility] [address] eGFR 26(L) >=60 mL/min/1. 73 m2 Comment: [...] MD LAB BLOOD ORDERABLES Fi nal Result [facility] One [facility] Department [place] [address] * Differential, auto (09/01/2024 12:57 AM CDT) Neutrophil abs 4.42 1.50 - 6.50 K/cumm Imm gran abs 0.03 0.00 - 0.10 K/cumm [facility] Lymphocyte abs 1.17 0.80 - 3.30 K/cumm [facility] Monocyte abs 0.38 0.20 - 0.80 K/cumm [facility] Eosinophil abs 0.10 0.00 - 0.50 K/cumm [facility] Basophil abs 0.02 0.00 - 0.10 K/cumm [facility] Neutrophil pct 72.3 % [facility] Comment: Interpretive Data Percent cell count reference ranges are not reported, since discordance with absolute values may lead to misinterpretation of CBC data. Current Interpretive Data was last revised on 2017. Imm gran pct 0.5 % [facility] Comment: Interpretive Data Percent cell count reference ranges are not reported, since discordance with absolute values may lead to misinterpretation of CBC data. Current Interpretive Data was last revised on 2017. Lymphocyte pct 19.1 % [facility] Comment: Interpretive Data Percent cell count reference ranges are not reported, since discordance with absolute values may lead to misinterpretation of CBC data. Current Interpretive Data was last revised on 2017. Monocyte pct 6.2 % [facility] Comment: Interpretive Data Percent cell count reference ranges are not reported, since discordance with absolute values may lead to misinterpretation of CBC data. Current Interpretive Data was last revised on 2017. Eosinophil pct 1.6 % [facility] Comment: Interpretive Data Percent cell count reference ranges are not reported, since discordance with absolute values may lead to misinterpretation of CBC data. Current Interpretive Data was last revised on 2017. Basophil pct 0.3 % [facility] Comment: Interpretive Data Percent cell count reference ranges are not reported, since discordance with absolute values may lead to misinterpretation of CBC data. Current Interpretive Data was last revised on 2017. Blood 09/01/2024 12:5 7 AM CDT 09/01/2024 1:20 AM CDT us Diana Cassidy MD LAB BLOOD ORDERABLES Fi nal Result [facility] One [facility] Department [place] [address] * (ABNORMAL) Urinalysis reflex to microscopic and culture Urine, bladder (09/01/2024 12:57 AM CDT) Color, ur Yellow Yellow Clarity, ur Clear Clear [facility] Specific gravity, ur 1.020 1.003 - 1.030 [facility] pH, urine 5.5 [facility] Comment: Interpretive Data U rine pH is affected by diet, medications, systemic acid-base disturbances, and renal tubular function. pH may affect urinary stone formation. For example, urine pH below 6.0 may help reduce the tendency for calcium phosphate stones and pH greater than 6.0 may reduce the tendency for uric acid stone formation. Source: Brand [facility] [employer] Current Interpretive Data was last revised on 2017 Protein, ur ql Trace Negative [facility] Glucose, ur ql Negative Negative [facility] Ketones, ur Trace Negative [facility] Bilirubin, ur Negative Negative [facility] Blood, ur Negative Negative [facility] Urobilinogen, ur 2.0(A) <2.0 mg/dL [facility] Nitrite, ur Negative Negative [facility] Leukocyte esterase, ur Negative Negative [facility] UA reflex comment Reflex conditions for microscopic UA and culture not met. [facility] Urine, bladder 09/01/2024 12 :57 AM CDT 09/01/2024 1:14 AM CDT Diana Cassidy MD LAB MICROBIOLOGY - [facility] ORDERABLES Final Result [facility] One [facility] Department [place] [address] * (ABNORMAL) CBC with auto differential (09/01/2024 12:57 AM CDT) WBC 6.12 3.80 - 9.90 K/cumm Hgb 12.7 11.9 - 15.5 g/dL [facility] Hct 35.2(L) 35.6 - 45.5 % [facility] Plt 115(L) 150 - 400 K/cumm [facility] MPV 11.0 9.1 - 12.3 fL [facility] RBC 3.20(L) 3.90 - 5.20 M/cumm [facility] MCV 110.0(H) 81.3 - 96.4 fL [facility] MCH 39.7(H) 27.1 - 33.3 pg [facility] MCHC 36.1(H) 32.3 - 35.7 g/dL [facility] RDW CV 14.2 11.1 - 14.9 % [facility] RDW SD 57.3(H) 35.7 - 48.1 fL [facility] NRBC abs 0.00 0.00 - 0.01 K/cumm [facility] Blood 09/01/2024 12:5 7 AM CDT 09/01/2024 1:20 AM CDT Diana Cassidy MD LAB BLOOD ORDERABLES Fi nal Result Performing Organization Address [facility] de Phone Number [facility] Department [place] [address] * Tacrolimus level random (09/01/2024 12:57 AM CDT) Tacrolimus random 23.8 ng/mL Comment: Interpretive Data Testing performed by liquid chromatography-tandem mass spectrometry. Therapeutic concentrations vary depending on type of transplanted organ and time elapsed since transplant. Typical trough concentrations range from 5-15 ng/mL. This test was developed and its performance characteristics determined by the [facility] Laboratory consistent with CLIA requirements. This test has not been cleared or approved by the US Food and Drug administration. Current interpretive data last reviewed 2019. Blood 09/01/2024 12:5 7 AM CDT 09/01/2024 1:20 AM CDT Diana Cassidy MD LAB BLOOD ORDERABLES Fi nal Result Performing Organization Address [facility] de Phone Number [facility] Department [place] [address] * Blood culture Blood (09/01/2024 12:57 AM CDT) Report Final Report: No growth Blood 09/01/2024 12:5 7 AM CDT 09/01/2024 1:35 AM CDT Narrative [facility] - 09/05/2024 7:00 AM CDT Collection->Peripheral [...] have been verified by the [facility] Microbiology Laboratory. For questions about this culture, contact the Microbiology Laboratory at [phone]. Interpretive data was last revised on 24. Diana Cassidy MD LAB MICROBIOLOGY - GENE RAL ORDERABLES Final Result Performing Organization Address City/[facility] Co de Phone Number [facility] Department [place] [address] * Phosphorus (09/01/2024 12:57 AM CDT) Phosphorus, pl 2.9 2.3 - 4.5 mg/dL Blood 09/01/2024 12:5 7 AM CDT 09/01/2024 1:20 AM CDT Diana Cassidy MD LAB BLOOD ORDERABLES Fi nal Result Performing Organization Address [facility] de Phone Number [facility] Department [place] [address] * Magnesium (09/01/2024 12:57 AM CDT) Magnesium 1.5 1.4 - 2.5 mg/dL Blood 09/01/2024 12:5 7 AM CDT 09/01/2024 1:20 AM CDT Diana Cassidy MD LAB BLOOD ORDERABLES Fi nal Result Performing Organization Address [facility] Co de Phone Number [facility] Department [place] [address] * Lipase (09/01/2024 12:57 AM CDT) Pathologist [facility] Lipase 19 10 - 99 Units/L Blood 09/01/2024 12:5 7 AM CDT 09/01/2024 1:20 AM CDT Diana Cassidy MD LAB BLOOD ORDERABLES Fi nal Result [facility] Department [place] [address] * (ABNORMAL) Comprehensive metabolic panel (09/01/2024 12:57 AM CDT) Pathologist [facility] Sodium 138 135 - 145 mmol/L Potassium, pl 4.5 3.3 - 4.9 mmol/L [facility] Comment:Hemolyzed; Potassium value may be falsely elevated by as much as 0.3-0.5 mmol/L. Suggest redraw and reanalysis. Chloride 105 97 - 110 mmol/L [facility] CO2 24 22 - 32 mmol/L [facility] Anion gap 9 2 - 15 mmol/L [facility] BUN 21 6 - 25 mg/dL [facility] Creatinine 2.34(H) 0.60 - 1.10 mg/dL [facility] Glucose 89 70 - 199 mg/dL [facility] Comment: Interpretive Data Fasting glucose [...] 2022. Calcium 8.7 8.5 - 10.3 mg/dL [facility] Bilirubin, total 1.1 0.1 - 1.2 mg/dL [facility] Protein, pl 7.1 6.5 - 8.5 g/dL [facility] Albumin 3.9 3.5 - 5.0 g/dL [facility] Alk phos 257(H) 40 - 130 Units/L [facility] ALT 14 7 - 45 Units/L [facility] AST 37 10 - 45 Units/L [facility] Comment:Hemolyzed; result ma y be falsely elevated Blood 09/01/2024 12:5 7 AM CDT 09/01/2024 1:20 AM CDT us Diana Cassidy MD LAB BLOOD ORDERABLES nal Result [facility] One [facility] [place] [address] * Surgical pathology (08/02/2024 9:18 AM CDT) Tissue (Miscellaneous) 08/02/2024 9:18 AM CDT 08/02/2024 9:18 AM CDT Narrative [facility] PATHOLOGY LAB - 08/14/2024 2:01 PM CDT EPIC results best viewed via link to PDF [facility] Pathology Consult Service [address], [place], [place] [id number] Note to Patients: This report may contain [...] SURGICAL PATHOLOGY REPORT * Consult Report * [facility] is providing an additional review of previously collected tissue. FINAL Patient Name: MISHA BROWNE Address: [address] [place] [id number] Gender: F : 1980 (Age: 43) [facility] #: [id number] Patient Type: [facility] Location: UNKNOWN Taken: 08/02/2024 Received: 08/02/2024 Accessioned: 08/05/2024 Reported: 08/14/2024 Physician(s): Beatriz Lee M.D. [facility] Department of Pathology [address] [place] [address] [place] [id number] P: [phone] F: [phone] Diagnosis: Consult material received from [place], [place] (OSC: [id number]; 11/17/2023) A. 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 Liver, allograft, approximately 3 years 6 months, biopsy - No evidence of acute cellular rejection - Mild sinusoidal dilitation - No significant steatosis, fibrosis (trichrome), or ductal injury - Copper stain is negative - No significant stainable iron - No alpha 1 globules on PASD la/08/13/2024 12:55 By this signature, I attest that the above diagnosis is based upon my personal examination of the slides(and/or other material indicated in the diagnosis). Kayla Burdick M.D. Report Electronically Reviewed and Signed Out By Kayla Burdick M.D. 08/14/2024 14:01:19 Diagnosis Comment Consult material received from [place], [place] (OSC: [id number]; 11/17/2023) Per chart review patient had a OLT in 1992 then a combined liver and kidney transplant at [place] on 04/2020. Course was complicated by biopsy [...] show moderate inflammatory infiltrate. There is patchy [id number] tubulitis. Small arteries and arterioles show mild [...] Received for review are ten slides labeled [id number], and nine slides labeled [id number], accompanied by a corresponding pathology report. The material originates from [facility], [place], [place]. Selected slide(s) may be digitally scanned for [...] occasional mononuclear cells Arteriolar hyalinosis (ah): ah1 [id number] PAS-positive hyaline thickening in at least one [...] the Department of Pathology and Immunology at [facility], [address] [place] [address] CLIA # [id number] The performance characteristics of the testing cited in this report (if any) were determined by the [facility] Department of Pathology and Immunology [facility], as part of an ongoing quality assurance assistant program and in compliance with federally mandated [...] and the performance characteristics determined by the [facility], [facility] Department of Pathology and Immunology. It has not been cleared or approved by the U.S. Food and Drug Administration. Any test designated as LDT was developed and its performance characteristics determined by [facility]. It has not been cleared or approved by the FDA. This test is used for clinical purposes and should not be regarded as investigational or for research. Report images and/or scanned reports, if included, only viewable in PDF version of report. us Beatriz Lee MD LAB PATHOLOGY ORDERA BLES Final Result Performing Organization Address City/[facility]/ZIP Co de Phone Number [facility] PATHOLOGY LAB [address] [facility] [address] [place] [address] * Hepatitis panel, acute (04/16/2020 6:35 AM CUSTOM GRINDER) Hep A IgM Nonreactive Nonreactive [facility] Comment: Interpretive Data: If Hep A IgM Ab is reported as Equivocal, a new sample should be drawn in two weeks for testing. Current interpretive data was last revised on 19. Hep B core IgM Nonreactive Nonreactive [facility] Comment: Interpretive Data If HepB Core IgM Ab is reported as Equivocal, a new sample should be drawn in two weeks for testing. Current interpretive data was last revised on 19. Hep C Ab Nonreactive Nonreactive [facility] Comment:Antibodies to HCV no t detected. Does NOT exclude the possibility of recent exposure to HCV. HepBsAg Nonreactive Nonreactive [facility] Blood specimen (specimen) 04/16/2020 6:35 AM CUSTOM GRINDER 04/16/2020 7:34 AM CUSTOM GRINDER us Jacob Gates MD LAB MICROBIOLOGY - GENER AL ORDERABLES Final Result Performing Organization Address City/[facility]/ZIP Co de Phone Number [facility] One [facility] Department [place] [address] from Last 3 Months or Most Recently Relevant to Health Maintenance Insurance [employer] SEOLINK OPEN ACCESS [facility] [id number] OPEN ACCESS [employer] [place] ID[place] Advance Directives For more information, please contact: [phone] * Full Code (Latest Code Status on [...] 6:15 AM 07/25/2019 11:[address] Relationship Specialty Start Date End Date Lyly Fiore NP [address] [place] [address] PCP - General Nurse Practitioner 05/29/24 Beatriz Lee MD [address] [place] [address] Referring Physician Gastroenterology 07/25/19 Taylor Kitchen, mild disabilities teacherVehicle Delivery Worker 05/29/24
--- OUTSIDE RECORDS SUMMARY | 2024-10-26 00:09 | XMS_ITS | Clinical Summary ---
Author Organization [facility] Address [address] [place] [address] Phone Care Team Providers Care Oracle Technical Architect Name Role Phone Hermes Ramirez MD Primary Care Provider [phone] Allergies Active Allergy Reactions Criticality Noted Date [...] BEDTIME 2 Active Butalbital-APAP -Caff-Cod (Fioricet/Codei ne) [id number] MG Capsule Take by mouth. 2 Active [...] 07/26/2024 5:51 PM CDT Emergency [facility] [address] [place] [address] Gabriel Mcintyre PAC GERD (gastroesophageal reflux disease) [...] Combined (1 of 2 - PCV) 2001 Human Papillomavirus (HPV) Immunization (1 - Risk 3-dose SCDM series) 2009 HPV/Cotest 2012 Hepatitis B Immunization (3 of [...] patient's age to complete this topic Insurance [id number] MEDICAID [place] [facility] [employer] Care Teams Oracle Technical Architect Relationship Specialty Start Date End Date Hermes Ramirez MD [address] [address] PCP - General Family Medicine 05/09/18
--- OUTSIDE RECORDS SUMMARY | 2024-10-26 00:10 | XMS_ITS | Encounter Summary ---
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 Per patient she is having [...] documented as of this encounter Care Teams Dye Jig Operator Relationship Specialty Start Date End Date Hermes Ramirez MD [address] [place] [address] PCP - General 05/28/20 documented as of this encounter
--- OUTSIDE RECORDS SUMMARY | 2024-10-26 00:10 | XMS_ITS | Encounter Summary ---
Author Organization [facility] Address [address] [place] [address] Care Team Providers Care Can Handler Name Role Phone Hermes Ramirez MD Primary Care Provider [phone] Encounter Details Date Type Department Care Team (Late st Contact Info) Description 11/21/2023 Telephone [facility] Medicine [address] [place], [place] [id number] Ajith Wild MD [address] [facility] [address] [place], [place] [id number] Social History Tobacco Use Types Packs/Day Years [...] the past [address] [facility], have you worried your food would run [...] on file Legal Sex Female 1:03 PM LAB CLERK Gender Identity Not on file Sexual [...] as of this encounter Care Teams Can Handler Relationship Specialty Start Date End Date Hermes Ramirez MD [address] [place] [address] PCP - General 05/28/20 documented as of this encounter
--- OUTSIDE RECORDS SUMMARY | 2024-10-26 00:10 | XMS_ITS | Encounter Summary ---
Author Organization [facility] Address [address] [place] [address] Care Team Providers Care Fertilizer Supervisor Name Role Phone Hermes Ramirez MD Primary Care Provider Reason for Visit * Reason Comments Refill Request Encounter Details Date Type Department Care Team (Late st Contact Info) Description 12/06/2023 Refill [facility] [address], [place] [phone] Levi Sheriff, ELISA [address] [place] [address] Refill Request Social History Tobacco Use Types [...] Currently or in the past 3 m [facility], have you worried your food would run out before you had money to buy more? No 2023 In the past 12 months, have you run out of food or been unable to get more? No 11/22/2023 Transportation Needs Answer Date Record ed Currently or in the past 3 m [facility], has lack of transportation kept you from [...] on file Legal Sex Female 1:03 PM CRYPTOLOGIC TECHNICIAN Gender Identity Not on file Sexual [...] documented as of this encounter Care Teams Fertilizer Supervisor Relationship Specialty Start Date End Date Hermes Ramirez MD [address] [place] [address] PCP - General 05/28/20 documented as of this encounter
--- OUTSIDE RECORDS SUMMARY | 2024-10-26 00:10 | XMS_ITS | Encounter Summary ---
Author Organization [facility] Address [address] [place] [address] Care Team Providers Care Legal Officer Name Role Phone Hermes Ramirez MD Primary Care Provider Reason for Visit * Reason Onset Date Comments Refill Request 09/02/2022 Encounter Details Date Type Department Care Team (Late st Contact Info) Description 09/02/2022 Refill [facility] [address] [phone] Tico Salmon NP [address] [place] [address] Refill Request Social History Tobacco [...] Currently or in the past 3 m [facility], have you worried your food would run out before you had money to buy more? No 2021 In the past 12 months, have you run out of food or been unable to get more? No 02/18/2022 Transportation Needs Answer Date Record ed Currently or in the past 3 m [facility], has lack of transportation kept you from [...] on file Legal Sex Female 1:03 PM CREDIT REPORT CHECKER Gender Identity Not on file Sexual [...] as of this encounter Care Teams Legal Officer Relationship Specialty Start Date End Date Hermes Ramirez MD [address] [place] [address] PCP - General 05/28/20 documented as of this encounter
--- OUTSIDE RECORDS SUMMARY | 2024-10-26 00:10 | XMS_ITS | Encounter Summary ---
Author Organization [facility] Address [address] [place] [address] Care Team Providers Care Mechanical Test Technician Name Role Phone Hermes Ramirez MD Primary Care Provider [phone] Encounter Details Date Type Department Care Team (Late st Contact Info) Description 07/24/2024 Lab Requisition [facility] [address] [address] Transplant-Liver, [place] [address] Mailstop [phone] [place] [address] Social History Tobacco Use Types Packs/Day Years [...] on file Legal Sex Female 1:03 PM BARKER OPERATOR Gender Identity Not on file Sexual [...] following 9 slides have been sent to [facility]. 07/26/2024 4:32 PM CDT [facility] Reference 07/26/2024 4:32 PM CDT [facility] Tissue TISSUE SPECIMEN / Unknown 11/17/2023 07/24/2024 4:[address] [facility] Transplant-Liver LAB PATHOLOGY CYTOLOGY ORDERABLE Final Result Performing Organization Address City/[facility] Co de Phone Number [facility] [address] [place] [address] * AP Block Slide Request: (11/17/2023) AP Request The following 10 slides have been sent to [facility]. 07/26/2024 4:34 PM CDT [facility] Reference 07/26/2024 4:34 PM CDT [facility] Tissue TISSUE SPECIMEN / Unknown 11/17/2023 07/24/2024 4:[address] [facility] Transplant-Liver LAB PATHOLOGY CYTOLOGY ORDERABLE Final Result Performing Organization Address City/[facility] Co de Phone Number [facility] [address] [place] [address] documented in this encounter Visit Diagnoses Not on filedocumented in this encounter Additional Health Concerns Assessment Noted Time PHQ-9 Depression Total Score: 6 12/08/19 22 3:08 PM CDT PHQ-2 Depression Total Score: 0 06/23/19 23 10:20 AM CDT documented as of this encounter Care Teams Mechanical Test Technician Relationship Specialty Start Date End Date Hermes Ramirez MD [address] [place] [address] PCP - General 05/28/20 documented as of this encounter
--- OUTSIDE RECORDS SUMMARY | 2024-10-26 00:10 | XMS_ITS | Encounter Summary ---
Author Organization [facility] Address [address] [facility] [address] [place] [address] Care Team Providers Care Power Screwdriver Operator Name Role Phone Hermes Ramirez MD Primary Care Provider Reason for Visit * Reason Comments Refill Request Encounter Details Date Type Department Care Team ([facility] st Contact Info) Description 01/10/2023 Refill [place] [address] [facility] [address] [place] [address] Allen Manzano, PAMoisésC [address] [facility] [address] [place] [address] Refill Request Social History Tobacco [...] the past 3 m [facility], have you worried your food would run [...] on file Legal Sex Female 1:03 PM MONORAIL HELPER Gender Identity Not on file Sexual [...] documented as of this encounter Care Teams Power Screwdriver Operator Relationship Specialty Start Date End Date Hermes Ramirez MD [address] [place] [address] PCP - General 05/28/20 documented as of this encounter
--- OUTSIDE RECORDS SUMMARY | 2024-10-26 00:10 | XMS_ITS | Encounter Summary ---
Author Organization [facility] Address [address] [place] [address] Care Team Providers Care Survey Research Center Director Name Role Phone Chelsyolive Lyly ELISA Primary Care Provider [phone] Encounter Details Date Type Department Care Team (Latest Contact Info) Description 10/25/2024 Travel Social History Tobacco Use Types Packs/Day [...] time in the past 12 m [facility], were you homeless or living in a nursing home (including now)? No 02/20/2024 Comments No Sex and Gender Information Value Date Recorded Sex Assigned at Female 04/05/2024 4:26 PM METAL MOULDER'S ASSISTANT Legal Sex Female 9:15 PM METAL MOULDER'S ASSISTANT Gender Identity Not on file Sexual [...] of Assessment Author Status No Risk Indicated 10/25/2024 10:38 PM Wilmar Salomon RN Active * [place] Suicide Severity Rating Scale (Screener/Recent Self-Report) Question Answer Date of Assessment Author Status 1. Wish to be (Past 1 Month) No 10/25/2024 10:38 PM Luz Maria Salomon, RN Act luis miguel 2. Non-Specific Active Suicidal Thoughts (Past 1 Month) No 10/25/2024 10:38 PM Luz Maria Salomon RN Act luis miguel 6. Suicidal Behavior (Lifetime) No 10/25/2024 10:38 PM Luz Maria Salomon RN Act luis miguel documented as of this encounter Mental Status * Because of a physical, mental, or emotional condition, do you have serious difficulty concentrating, remembering, or making decisions? Answer Entry Date Author Status No 02/20/2024 4:08 AM METAL MOULDER'S ASSISTANT Kimmy Hayes RN Active documented in this encounter Plan of Treatment Not on file documented as of this encounter Visit Diagnoses Not on filedocumented in this encounter Care Teams Survey Research Center Director Relationship Specialty Start Date End Date Lyly Fiore NP [address] [place] [address] PCP - General NURSE PRACTITIONER 04/14/24 documented as of this encounter
--- OUTSIDE RECORDS SUMMARY | 2024-10-26 00:10 | XMS_ITS | Encounter Summary ---
Author Organization [facility] Address [address] [place] [address] Care Team Providers Care Marine Rigger Name Role Phone Hermes Ramirez MD Primary Care Provider Reason for Visit * Reason Onset Date Comments Refill Request 04/08/2023 Encounter Details Date Type Department Care Team (Late st Contact Info) Description 04/08/2023 Refill [facility] [address] [phone] Tico Salmon NP [address] [place] [address] Refill Request Social History Tobacco [...] Currently or in the past 3 m [facility], have you worried your food would run [...] on file Legal Sex Female 1:03 PM TIP OUT WORKER Gender Identity Not on file Sexual [...] documented as of this encounter Care Teams Marine Rigger Relationship Specialty Start Date End Date Hermes Ramirez MD [address] [place] [phone] PCP - General 05/28/20 documented as of this encounter
--- OUTSIDE RECORDS SUMMARY | 2024-10-26 00:10 | XMS_ITS | Clinical Summary ---
Author Organization [facility] Address [address] [place] [address] [place] [address] Care Team Providers Care Fence Laborer Name Role Phone Hermes Ramirez MD Primary Care Provider [phone] Allergies Active Allergy Reactions Criticality Noted Date [...] Dates Next Due Tetanus-Diphth Toxoids Injection 10/18/2021 Oxbnuft-Tniviyhlrc-Clatjiesu Pertussis (Tdap) Injection 10/18/2021,05/10/2017,05/25/2012 hepatitis A vaccine [...] on file Legal Sex Female 1:03 PM BRUISE TRIMMER Gender Identity Not on file Sexual [...] this topic Medical Devices Implanted Type Area Briar Shop Supervisor Device Identifier Shelf Expiration Date Model / Serial / Lot Liver - [id number] Implanted:Qty: 1 on 05/09/2020 by Nirav Carpio MD at [facility] N/A: Abdomen ORGAN PROCUREMENT ORGANIZATION 05/10/2020 ORGAN - LIVER / [id number] / LOT NA Left Kidney - [id number] Implanted:Qty: 1 on 05/09/2020 by Nirav Carpio MD at [facility] N/A: Abdomen ORGAN PROCUREMENT ORGANIZATION 05/10/2020 ORGAN - LEFT KIDNEY / [id number] / LOT NA Stent Ureteral L12 Cm L100 Cm Od6 Fr .028 In Closed End Design One Step Insertion Radiopaque Filler Double-J Silicone Disposable - [id number] Implanted:Qty: 1 on 05/09/2020 by Nirav Carpio MD at [facility] N/A: Abdomen OLYMPUS - GYRUS ACMI WAGNER 02/11/2025 [id number] / / [id number] Stent Ureteral L12 Cm L100 Cm Od6 Fr .028 In Closed End Design One Step Insertion Radiopaque Filler Double-J Silicone Disposable - [id number] Implanted:Qty: 1 on 05/09/2020 by Nirav Carpio MD at [facility] N/A: Abdomen OLYMPUS - GYRUS ACMI WAGNER 02/11/2025 [id number] / / [id number] Device Closure L70 Cm .038 In Insertion Sheath Arteriotomy Fibreglass Lay Up Worker Guidewire J Care Partner Vascular Angio-Seal Evolution ([id number]) - [id number] Implanted:Qty: 1 on 07/20/2020 at [facility] TERUMO [employer] WAGNER 03/19/2021 [id number] / / [id number] Procedures Procedure Name Priority Date/Time Associated Diagnosis Comments HEPATITIS C VIRUS ANTIBODY Routine 11/07/2023 5:43 AM CDT HIV RNA QUANTITATION (HIV VIRAL LOAD) Routine 06/17/2020 9:55 AM CDT Other long term care social worker (current) drug therapy Encounter for aftercare following liver transplant (CMS-HCC) Status post kidney transplant PATHOLOGY GYNE CYTOLOGY 04/28/2020 12:00 AM BRUISE TRIMMER from Last 3 Months or Most Recently Relevant to Health Maintenance Results * Hepatitis C Virus Antibody (11/07/2023 5:43 AM CDT) Pathologist [facility] HEP C AB Not Detected Not Detected [facility] Comment: Antibodies to HCV not detected. This does not exclude the possibility of exposure to HCV. 11/07/2023 5:43 AM CDT 11/07/2023 6:16 AM CDT Phillip Mustafa MD LAB BLOOD ORDERABLES Final Re sult [address] [address] * HIV RNA Quantitation (06/17/2020 9:55 AM CDT) [facility] HIV-1 RNA QUANTITATION HIV RNA Quantitation [facility] HIV-1 RNA QUANTITATION Less than 40 Less than 40 Copies/m L [facility] HIV LOG RESULT Less than 1.6 R [facility] Comment: Methodology: Quantitation of HIV RNA is [...] PA-C LAB BLOOD MICRO Final Resu lt [address] [address] * Pathology Gyne Cytology: (04/28/2020 12:00 AM BRUISE TRIMMER) [facility] AP [facility] COPA TH CONVERSION PATHOLOGY RESULT Department of Pathology [facility] Path[facility] Diagnostics [address] [facility] [place] [address] Final *Clinical Data Electronic version* This report may not match the original report format REPORT DATE: 05/04/2020 FINAL CYTOLOGIC DIAGNOSIS GYNE THIN PREP + HPV HIGH RISK Adequacy: Satisfactory for evaluation, but limited by no transformation zone. General Category: Negative for intraepithelial lesion or malignancy. Description: Fungal organisms morphologically consistent with Lydia. HPV mRNA E6/E7 NOT DETECTED Performed using the APTIMA HPV Assay ([employer]) This assay detects E6/E7 viral messenger RNA (mRNA) from 14 high risk HPV types (16, 18, 31, 33, 35, 39, 45, 51, 52, 56, 58, 59, 66, 68) [Reference Range = NOT DETECTED] TEST PERFORMED AT: [facility], [address] [place] [address]. Environmental Technical Officer: David Kc MD. IA # [id number]. Attending Pathologist: Destiny Obregon MD, PhD * Electronically signed Review by Press Breaker: Akil De La Cruz * Electronically signed [...] developed and the performance characteristics determined by [facility] Department of Pathology. These tests have not been cleared or approved for commercial use by the U.S. Food and Drug Administration. This test is used for clinical purposes. It should not be regarded as investigational or for research. The FDA has determined that FDA review is not required for such assays. This is for [id number]. CLINICAL INFORMATION Date of Last Menstrual Period: UNKNOWN Other Clinical Conditions: LSIL or higher, bx/pap HPV, Hx/Dx/Rx Intradepartmental Consultation Pathologist: ICD-CM(s): A; Z12.4 Z11.51 CPT(s): A; 28526, 23684 [facility] COPATH CONVERSION AP Final Diagnosis GYNE THIN PREP + HPV HIGH RISK Adequacy: Satisfactory for evaluation, but limited by no transformation zone. General Category: Negative for intraepithelial lesion or malignancy. Description: Fungal organisms morphologically consistent with Lydia. HPV mRNA E6/E7 NOT DETECTED Performed using the APTIMA HPV Assay ([employer]) This assay detects E6/E7 viral messenger RNA (mRNA) from 14 high risk HPV types (16, 18, 31, 33, 35, 39, 45, 51, 52, 56, 58, 59, 66, 68) [Reference Range = NOT DETECTED] TEST PERFORMED AT: [facility], [address] [place] [address]. Environmental Technical Officer: David Kc MD. CLIA # [id number]. [facility] COPATH CONVERSION AP Notes This case was reviewed by a pathologist for QC purposes only. [facility] COP[facility] CONVERSION AP ICD-10 Code Z12.4 Z11.51 [facility] COP[facility] CONVERSION HPV HR SCREEN SEE COMMENT [facility] COP[facility] CONVERSION 04/28/2020 04/29/2020 7:2 0 AM BRUISE TRIMMER Dulce Austin MD PATHOLOGY Edited Result - Final [facility] COP[facility] CONVERSION from Last 3 Months or Most Recently Relevant to Health Maintenance Advance Directives Documents on File Type Date Recorded Patient Java Swing Developer Expl anation Advance Directives 07/18/2020 9:50 AM [...] 1:35 AM 12/14/2020 1:59 PM Care Teams Fence Laborer Relationship Specialty Start Date End Date Hermes Ramirez MD [address] [place] [address] PCP - General 05/28/20
--- OUTSIDE RECORDS SUMMARY | 2024-10-26 00:10 | XMS_ITS | Encounter Summary ---
Author Organization [facility] Address [address] [place] [address] Care Team Providers Care English Composition Instructor Name Role Phone Chelsyolive Lyly ELISA Primary Care Provider [phone] Reason for Visit * Reason Comments Back Pain Encounter Details Date Type Department Care Team (Late st Contact Info) Description 10/25/2024 10:34 PM CDT - 10/25/2024 11:29 PM CDT Emergency [facility] [address] [facility] [place] [address] Zane Marie, DO [address] [place], [place] [address] Back Pain Discharge Disposition: Home or Self [...] were you homeless or living in a group home (including now)? No 02/20/2024 Comments No Sex and Gender Information Value Date Recorded Sex Assigned at Female 04/05/2024 4:26 PM COMPRESSION MOLDING MACHINE TENDER Legal Sex Female 9:15 PM COMPRESSION MOLDING MACHINE TENDER Gender Identity Not on [...] Mass Index 34.68 10/25/2024 10:38 PM CDT documented in this encounter Functional [...] Status No Risk Indicated 10/25/2024 10:38 PM ALICIAT Wilmar Hernandez RN Active * [place] Suicide Severity Rating Scale (Screener/Recent Self-Report) Question Answer Date of Assessment Author Status 1. Wish to be (Past 1 Month) No 10/25/2024 10:38 PM Luz Maria Salomon RN Act luis miguel 2. Non-Specific Active Suicidal Thoughts (Past 1 Month) No 10/25/2024 10:38 PM Luz Maria Salomon, RN Act luis miguel 6. Suicidal Behavior (Lifetime) No 10/25/2024 10:38 PM Luz Maria Salomon, RN Act luis miguel documented as of this encounter Mental Status * Because of a physical, mental, or emotional condition, do you have serious difficulty concentrating, remembering, or making decisions? Answer Entry Date Author Status No 02/20/2024 4:08 AM Kimmy Andino RN Active documented in this encounter Medications at Time of Discharge azaTHIOprine (IMURAN) 50 MG tablet Take 1 tablet (50 mg total) by mouth daily. ENVARSUS XR 4 MG TABLET SR 24 [...] tablet (5 mg total) by mouth daily. venlafaxine (EFFEXOR) 37.5 MG tablet Take 1 tablet (37.5 mg total) by mouth daily. 60 tablet 02/20/2024 documented as of this encounter ED Notes * Zane Marie, - 10/25/2024 10:43 PM CDT Chief Complaint Chief Complaint Patient presents with Back Pain History of Present Illness 44-year-old female presents to the emergency department complaining of chronic uncontrolled back pain. Patient has a history of liver and kidney transplants. She is on chronic immunosuppression. She states that back pain is related to arthritis and stenosis. She does see pain management and they have tried a medial branch block with her, but she states that the test block was ineffective. They have instructed her to take Tylenol up to 1000 mg total per day given her liver transplant status. He did not provide her with any other pain control per her report, however review of pain management notes states that they do prescribe her duloxetine. It appears that the patient does refill this on a regular basis. She has had previous prescriptions for gabapentin, but the last was filled for a 30-day supply in May 2024. Patient has had prescription filled for Percocet and tramadol from different prescribers within the past year. Patient has had ER visits every few days during the past few months to different facilities requesting a cocktail of Dilaudid, Zofran, Benadryl, and IV normal saline. Some facilities have been willing to accommodate the patient's request. Patient states that pain management has told her to come to an ER if her pain becomes severe, but there does not seem to be discussion directly about this in the available notes. Patient denies any new injuries. 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 She thinks that perhaps her back pain is worse as she has not been in her home bed recently. She denies any paresthesias or loss of bowel or bladder function. History provided by: Patient and medical records automation mechanic used: No Back Pain Medical History ALLERGIES: Review of patient's allergies [...] Start Date End Date Taking? Authorizing Provider azaTHIOprine (IMURAN) 50 MG tablet Take 1 tablet (50 mg total) by mouth daily. Default History Genericprovider ENVARSUS XR 4 MG [...] total) by mouth daily. Default History Genericprovider venlafaxine (EFFEXOR) 37.5 MG tablet Take 1 tablet (37.5 mg total) by mouth daily. 02/20/24 Nereyda Mariscal MD PAST MEDICAL HISTORY: Past Medical History[1] PAST SURGICAL HISTORY: Past Surgical History[2] FAMILY HISTORY: Family History[3] SOCIAL HISTORY: Social History[4] Review of Systems Review of Systems Musculoskeletal: Positive for back pain. All other systems reviewed and are negative. Physical Exam Filed Vitals: 10/25/24 2250 10/25/24 2300 10/25/24 2310 10/25/24 2315 BP: (!) 157/97 Pulse: Resp: Temp: TempSrc: SpO2: 99% 100% 100% 100% Weight: Height: Physical Exam Vitals and nursing note reviewed. Constitutional: General: She is not in acute distress. Appearance: She is well-developed. She is not diaphoretic. HENT: Head: Normocephalic and atraumatic. Eyes: Conjunctiva/sclera: Conjunctivae normal. Pulmonary: Effort: Pulmonary effort is normal. No respiratory distress. Breath sounds: Normal breath sounds. Neurological: Mental Status: She is alert and oriented to person, place, and time. Psychiatric: Behavior: Behavior normal. Thought Content: Thought content normal. Judgment: Judgment normal. Diagnostic Studies / Procedures ELECTROCARDIOGRAMS: No results found for this visit on 10/25/24. LABORATORY STUDIES: No results found for this visit on 10/25/24. IMAGING STUDIES No orders to display ED Course / Medical Decision Making Medical Decision Making Patient complains of uncontrolled chronic back pain. No new trauma or other insults. Patient has established care with pain management and is on a regimen of duloxetine and Tylenol. Pain management does not appear to want the patient to have anything available for breakthrough pain. They have been trying injections for treatment which have been ineffective. Patient offered IM injections of musclerelaxant and steroid which she refuses as she states that those are not effective for her. Patient insists that Dilaudid is necessary to control her pain. Patient not showing any signs of distress during evaluation. Patient able to ambulate out of the ER without any difficulty. Amount and/or Complexity of Data Reviewed External Data Reviewed: radiology and notes. Risk Prescription drug management. Clinical Impression Chronic low back pain (Primary) Lumbar spinal stenosis Disposition: Discharge Zane Coffey D.O., dictated portions of this note using [employer] speech recognition software. Occasional wrong word or sound-alike substitutions may have occurred due to the inherent limitationsof voice recognition software. Please read the chart carefully and recognize, using context, where s ubstitutions may have occurred. [1] Past Medical History: Diagnosis Date Anemia [...] Topics Alcohol use: No Drug use: No Zane Marie DO 10/25/24 [id number] * Luz Maria Hernandez RN - 10/25/2024 10:34 PM CDT Pt presents to ER with c/o chronic back pain, pt states there is nothing new to the pain she is experiencing, no trauma. Pt states she has pending apt with pain management Oct 29 at [facility]. 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 Pt states 50mg benadryl, 1-2mg dilaudid, 25mg zofran or phenergan and 500ml fluid to relieve her pain. documented in this encounter Plan of Treatment Not on file documented as of this encounter Visit Diagnoses Diagnosis Chronic low back pain- Primary Lumbago Lumbar spinal stenosis Spinal stenosis, lumbar region, without neurogenic claudication documented in this encounter Care Teams English Composition Instructor Relationship Specialty Start Date End Date Lyly Fiore NP [address] [place] [address] PCP - General NURSE PRACTITIONER 04/14/24 documented as of this encounter
--- OUTSIDE RECORDS SUMMARY | 2024-10-26 00:10 | XMS_ITS | Encounter Summary ---
Author Organization [facility] Address [address] [facility] [address] [place] [address] Care Team Providers Care Director Of Compliance Name Role Phone Hermes Ramirez MD Primary Care Provider Reason for Visit * Reason Onset Date Comments Refill Request 09/06/2020 Encounter Details Date Type Department Care Team (Late st Contact Info) Description 09/06/2020 Refill [facility] [address] [phone] Allen Manzano PAVasquez [address] [facility] [address] [place] [phone] Refill Request Social History Tobacco Use Types Packs/Day Years Used Date Smoking Tobacco: Former Cigarettes 0.5 20 0 03/20/2000 - 03/20/2020 Smokeless Tobacco: Never Social Connections Answer Date Recorded Conversations with friends/family/neighbors per week Not on file 05/25/2020 Comments No Sex and Gender Information Value Date Recorded Sex Assigned at Not on file Legal Sex Female 1:03 PM CHIEF OF VITAL STATISTICS Gender Identity Not on file Sexual Orientation Not on file documented as of this encounter Plan of Treatment Not on file documented as of this encounter Visit Diagnoses Not on filedocumented in this encounter Additional Health Concerns Assessment Noted Time PHQ-2 Depression Total Score: 0 07/07/19 21 9:51 AM CDT documented as of this encounter Care Teams Director Of Compliance Relationship Specialty Start Date End Date Hermes Ramirez MD [address] [place] [address] PCP - General 05/28/20 documented as of this encounter
--- OUTSIDE RECORDS SUMMARY | 2024-10-26 00:10 | XMS_ITS | Encounter Summary ---
Author Organization [facility] Address [address] [place] [address] Care Team Providers Care Television Mechanic Name Role Phone Hermes Ramirez MD Primary Care Provider [phone] Reason for Visit * Reason Onset Date Comments Refill Request 09/06/2020 Encounter Details Date Type Department Care Team (Late st Contact Info) Description 09/06/2020 Refill [place] [facility] [address] [facility] [address] [place] [address] [place] [address] [place] [address] Refill Request Social History Tobacco Use Types Packs/Day Years Used Date Smoking Tobacco: Former Cigarettes 0.5 20 0 03/20/2000 - 03/20/2020 Smokeless Tobacco: Never Social Connections Answer Date Recorded Conversations with friends/family/neighbors per week Not on file 05/25/2020 Comments No Sex and Gender Information Value Date Recorded Sex Assigned at Not on file Legal Sex Female 1:03 PM LINE FISHER Gender Identity Not on file Sexual Orientation Not on file documented as of this encounter Plan of Treatment Not on file documented as of this encounter Visit Diagnoses Not on filedocumented in this encounter Additional Health Concerns Assessment Noted Time PHQ-2 Depression Total Score: 0 07/07/19 21 9:51 AM CDT documented as of this encounter Care Teams Television Mechanic Relationship Specialty Start Date End Date Hermes Ramirez MD [address] [place] [address] PCP - General 05/28/20 documented as of this encounter
--- OUTSIDE RECORDS SUMMARY | 2024-10-26 00:10 | XMS_ITS | Encounter Summary ---
Author Organization [facility] Address [address] [place] [address] Care Team Providers Care Scientific Process Operator Name Role Phone Ashley ZUNIGA MD, Hermes Perez Primary Care Provid er Lyly Fiore NP Primary Care Provider [phone] Encounter Details Date Type Department Care Team (Late st Contact Info) Description 06/03/2017 Abstract [facility] CONVERSION [address] [place] [address] , Generic ConversionMD Social History Tobacco Use Types Packs/Day Years Used Date Smoking Tobacco: Never Assessed Comments Unknown Sex and Gender Information Value Date Recorded Sex Assigned at Female 04/05/2024 4:26 PM LAMINATION OPERATOR Legal Sex Female 9:15 PM LAMINATION OPERATOR Gender Identity Not on file Sexual Orientation Not on file documented as of this encounter Plan of Treatment Not on file documented as of this encounter Visit Diagnoses Not on filedocumented in this encounter Additional Health Concerns Infection Onset Date Last Indicated Resolved Time COVID-19 Rule Out 03/30/2020 03/30/2020 03/30/2020 9:29 PM LAMINATION OPERATOR COVID-19 Rule Out 03/30/2020 03/30/2020 03/31/2020 12:28 PM LAMINATION OPERATOR COVID-19 Rule Out 02/16/2024 02/16/2024 02/16/2024 9:16 PM LAMINATION OPERATOR Rhinovirus 02/16/2024 02/16/2024 02/26/2024 12:3 2 AM LAMINATION OPERATOR COVID-19 Rule Out 08/26/2024 08/26/2024 08/26/2024 11:07 PM CDT Respiratory Rule Out 08/26/2024 08/26/2024 025 11:06 PM CDT documented as of this encounter Care Teams Scientific Process Operator Relationship Specialty Start Date End Date Hermes Ramirez III, MD [address] [address] PCP - General FAMILY PRACTICE 06/20/17 04/13/24 Lyly Fiore NP [address] [place] [address] PCP - General NURSE PRACTITIONER 04/14/24 documented as of this encounter
--- OUTSIDE RECORDS SUMMARY | 2024-10-26 00:10 | XMS_ITS | Encounter Summary ---
Author Organization [facility] Address [address] [facility] [place] [address] Care Team Providers Care Histotechnologist Name Role Phone Hermes Ramirez MD Primary Care Provider Reason for Visit * Reason Onset Date Comments Refill Request 04/08/2023 Encounter Details Date Type Department Care Team (Late st Contact Info) Description 04/08/2023 Refill [place] [facility] [address] [address] Marion Pedroza MD [address] [place] [address] Refill Request Social History Tobacco [...] on file Legal Sex Female 1:03 PM SPEEDER MACHINE OPERATOR Gender Identity Not on file [...] documented as of this encounter Care Teams Histotechnologist Relationship Specialty Start Date End Date Hermes Ramirez MD [address] [place] [address] PCP - General 05/28/20 documented as of this encounter
--- OUTSIDE RECORDS SUMMARY | 2024-10-26 00:10 | XMS_ITS | Encounter Summary ---
Author Organization [facility] Address [address] [facility] [place] [address] Care Team Providers Care Skilled Nursing Facilities Professional Name Role Phone Hermes Ramirez MD Primary Care Provider Reason for Visit * Reason Onset Date Comments Refill Request 06/01/2023 Encounter Details Date Type Department Care Team (Late st Contact Info) Description 06/01/2023 Refill [place] [facility] [address] [address] Marion Pedroza MD [address] [place] [address] Refill Request Social History Tobacco [...] or in the past 3 m [facility], have you worried your food would run [...] file Legal Sex Female 1:03 PM MACHINE ACCOUNTANT Gender Identity Not on file Sexual [...] documented as of this encounter Care Teams Skilled Nursing Facilities Professional Relationship Specialty Start Date End Date Hermes Ramirez MD [address] [place] [address] PCP - General 05/28/20 documented as of this encounter
--- OUTSIDE RECORDS SUMMARY | 2024-10-26 00:10 | XMS_ITS | Encounter Summary ---
Author Organization [facility] Address [address] [place] [address] Care Team Providers Care Food And Nutrition Services Assistant Name Role Phone Hermes Ramirez MD Primary Care Provider Reason for Visit * Reason Onset Date Comments Refill Request 06/01/2023 Encounter Details Date Type Department Care Team (Late st Contact Info) Description 06/01/2023 Refill [facility] [facility] [address] [phone] Tico Salmon NP [address] [place] [address] Refill Request Social History Tobacco [...] or in the past 3 m [facility], have you worried your food would run [...] on file Legal Sex Female 1:03 PM CLAY PIGEON SETTER Gender Identity Not on file Sexual [...] documented as of this encounter Care Teams Food And Nutrition Services Assistant Relationship Specialty Start Date End Date Hermes Ramirez MD [address] [place] [address] PCP - General 05/28/20 documented as of this encounter
--- OUTSIDE RECORDS SUMMARY | 2024-10-26 00:10 | XMS_ITS ---
Author Organization [facility] Address [address] [place] [address] Care Team Providers Care Truck Spotter Name Role Phone Beatriz Lee MD Unavailable [phone] Lyly Fiore NP Primary Care Provider Taylor Kitchen RN Unavailable Unav ailable Transplant Episode Liver Recipient [facility] ([place], [place]) - [facility] Transplanted on 05/09/2020 Marked as Active Follow-up on 07/01/2024 Reason: In Transition Process Liver CoordinatorTaylor Kitchen RN Phone: N/A Fax: N/A Email: N/A Transplanted Elsewhere: [facility] ([place], [place]) - [place] Coordinator: Phone: Fax: [place] Organ Diagnosis Organ Primary Contributory Liver Biliary Atresia: Extrahepatic Infection History Noted Survival Infection Treatment Organism Resolved 09/01/2024 4 years 3 months Rhinovirus Care Team Name Role Phone Fax Email aTylor Kitchen RN Liver Coordinator N/A N /A N/A Events Post-Transplant Pre-Transplant Transplanted: 05/09/2020
--- OUTSIDE RECORDS SUMMARY | 2024-10-26 00:10 | XMS_ITS | Encounter Summary ---
Author Organization [facility] Address [address] [place] [address] Care Team Providers Care Steel Pickler Name Role Phone Hermes Ramirez MD Primary Care Provider Reason for Visit * Reason Comments Refill Request Encounter Details Date Type Department Care Team (Late st Contact Info) Description 10/21/2020 Refill [place] [facility] [address] [facility] [address] [place] [address] Nirav Carpio MD [address] [place] [phone] Refill Request Social History Tobacco Use [...] on file Legal Sex Female 1:03 PM PUBLIC WELFARE DIRECTOR Gender Identity Not on file Sexual [...] documented as of this encounter Care Teams Steel Pickler Relationship Specialty Start Date End Date Hermes Ramirez MD [address] [place] [address] PCP - General 05/28/20 documented as of this encounter
--- OUTSIDE RECORDS SUMMARY | 2024-10-26 00:10 | XMS_ITS | Encounter Summary ---
Author Organization [facility] Address [address] [facility] [place] [address] Care Team Providers Care Draw Bench Operator Helper Name Role Phone Hermes Ramirez MD Primary Care Provider [phone] Reason for Visit * Reason Onset Date Comments Refill Request 05/06/2023 Encounter Details Date Type Department Care Team (Late st Contact Info) Description 05/06/2023 Refill [place] [facility] [address] [address] Marion Pedroza MD [address] [place] [address] Refill Request Social History Tobacco [...] on file Legal Sex Female 1:03 PM HOME STAGING SPECIALIST Gender Identity Not on file Sexual [...] documented as of this encounter Care Teams Draw Bench Operator Helper Relationship Specialty Start Date End Date Hermes Ramirez MD [address] [place] [address] PCP - General 05/28/20 documented as of this encounter
--- OUTSIDE RECORDS SUMMARY | 2024-10-26 00:10 | XMS_ITS | Encounter Summary ---
Author Organization [facility] Address [address] [facility] [place] [address] Care Team Providers Care Compressor Assembler Name Role Phone Hermes Ramirez MD Primary Care Provider Reason for Visit * Reason Onset Date Comments Refill Request 06/01/2023 Encounter Details Date Type Department Care Team ([facility] st Contact Info) Description 06/01/2023 Refill [place] [facility] [address] [address] Allen Manzano PAVasquez [address] [facility] [address] [place] [address] Refill Request Social History Tobacco [...] on file Legal Sex Female 1:03 PM PLANER MILL GRADER Gender Identity Not [...] documented as of this encounter Care Teams Compressor Assembler Relationship Specialty Start Date End Date Hermes Ramirez MD [address] [place] [address] PCP - General 05/28/20 documented as of this encounter
--- OUTSIDE RECORDS SUMMARY | 2024-10-26 00:30 | XMS_ITS | Encounter Summary ---
Author Organization [facility] Address [address] [facility] [place] [address] Care Team Providers Care Yard Foreman Name Role Phone Hermes Ramirez MD Primary Care Provider Reason for Visit * Reason Onset Date Comments Refill Request 01/05/2021 Encounter Details Date Type Department Care Team (Late st Contact Info) Description 01/05/2021 Refill [place] [facility] [address] [facility] [address] [place] [address] Vivian Ayala MD [address] [facility] 7[address] [place] [address] Refill Request Social History Tobacco [...] on file Legal Sex Female 1:03 PM PROPERTY SPECIALIST Gender Identity Not on file Sexual [...] documented as of this encounter Care Teams Yard Foreman Relationship Specialty Start Date End Date Hermes Ramirez MD [address] [place] [address] PCP - General 05/28/20 documented as of this encounter
--- OUTSIDE RECORDS SUMMARY | 2024-10-26 00:30 | XMS_ITS | Encounter Summary ---
Author Organization [facility] Address [address] [place] [address] Care Team Providers Care General Helper Name Role Phone Hermes Ramirez MD Primary Care Provider [phone] Reason for Visit * Reason Onset Date Comments Refill Request 06/01/2023 Encounter Details Date Type Department Care Team (Late st Contact Info) Description 06/01/2023 Refill [place] [facility] [address] [phone] Tico Salmon NP [address] [place] [address] Refill Request Social History Tobacco [...] Currently or in the past 3 m [facility], have you worried your food [...] on file Legal Sex Female 1:03 PM MOLD MAKER HELPER Gender Identity Not on file [...] documented as of this encounter Care Teams General Helper Relationship Specialty Start Date End Date Hermes Ramirez MD [address] [place] [address] PCP - General 05/28/20 documented as of this encounter
--- OUTSIDE RECORDS SUMMARY | 2024-10-26 00:30 | XMS_ITS | Encounter Summary ---
Author Organization [facility] Address [address] [facility] [place] [address] Care Team Providers Care Cloth Hauler Name Role Phone Hermes Ramirez MD Primary Care Provider Reason for Visit * Reason Onset Date Comments Refill Request 06/01/2023 Encounter Details Date Type Department Care Team (Late st Contact Info) Description 06/01/2023 Refill [place] [facility] [address] [address] Marion Pedroza MD [address] [place] [address] Refill Request Social History Tobacco [...] on file Legal Sex Female 1:03 PM POST ADOPTION COORDINATOR Gender Identity Not on file Sexual [...] as of this encounter Care Teams Cloth Hauler Relationship Specialty Start Date End Date Hermes Ramirez MD [address] [place] [address] PCP - General 05/28/20 documented as of this encounter
--- OUTSIDE RECORDS SUMMARY | 2024-10-26 00:30 | XMS_ITS | Encounter Summary ---
Author Organization [facility] Address [address] [place] [address] Care Team Providers Care Reel Stripper Name Role Phone Ashley ZUNIGA MD, Hermes Perez Primary Care Provid er Lyly Fiore NP Primary Care Provider [phone] Encounter Details Date Type Department Care Team (Late st Contact Info) Description 02/22/2024 Hospital Follow-up Call [facility] Unit [address] [place] [address] Zulma Ardon, RN Social History Tobacco Use [...] any time in the past 12 m [facility], were you homeless or living in a assisted (including now)? No 02/20/2024 Comments No Sex and Gender Information Value Date Recorded Sex Assigned at Female 04/05/2024 4:26 PM RN LIAISON Legal Sex Female 9:15 PM RN LIAISON Gender Identity Not on file Sexual [...] Rhinovirus 02/16/2024 02/16/2024 02/26/2024 12:3 2 AM RN LIAISON COVID-19 Rule Out 08/26/2024 08/26/2024 08/26/2024 11:07 PM CDT Respiratory Rule Out 08/26/2024 08/26/2024 025 11:06 PM CDT documented as of this encounter Care Teams Reel Stripper Relationship Specialty Start Date End Date Hermes Ramirez III, MD [address] [address] PCP - General FAMILY PRACTICE 06/20/17 04/13/24 Lyly Fiore NP [address] [place] [address] PCP - General NURSE PRACTITIONER 04/14/24 documented as of this encounter
--- OUTSIDE RECORDS SUMMARY | 2024-10-26 00:30 | XMS_ITS | Encounter Summary ---
Author Organization [facility] Address [address] [place] [address] Care Team Providers Care Cnc Router Operator Name Role Phone Ashley ZUNIGA MD, Hermes Perez Primary Care Provid er Lyly Fiore NP Primary Care Provider [phone] Encounter Details Date Type Department Care Team (Late st Contact Info) Description 06/03/2017 Abstract [facility] CONVERSION [address] [place] [address] , Generic ConversionMD Social History Tobacco Use Types Packs/Day Years Used Date Smoking Tobacco: Never Assessed Comments Unknown Sex and Gender Information Value Date Recorded Sex Assigned at Female 04/05/2024 4:26 PM DEVELOPMENTAL SERVICES WORKER Legal Sex Female 9:15 PM DEVELOPMENTAL SERVICES WORKER Gender Identity Not on file Sexual Orientation Not on file documented as of this encounter Plan of Treatment Not on file documented as of this encounter Visit Diagnoses Not on filedocumented in this encounter Additional Health Concerns Infection Onset Date Last Indicated Resolved Time COVID-19 Rule Out 03/30/2020 03/30/2020 03/30/2020 9:29 PM DEVELOPMENTAL SERVICES WORKER COVID-19 Rule Out 03/30/2020 03/30/2020 03/31/2020 12:28 PM DEVELOPMENTAL SERVICES WORKER COVID-19 Rule Out 02/16/2024 02/16/2024 02/16/2024 9:16 PM DEVELOPMENTAL SERVICES WORKER Rhinovirus 02/16/2024 02/16/2024 02/26/2024 12:3 2 AM DEVELOPMENTAL SERVICES WORKER COVID-19 Rule Out 08/26/2024 08/26/2024 08/26/2024 11:07 PM CDT Respiratory Rule Out 08/26/2024 08/26/2024 025 11:06 PM CDT documented as of this encounter Care Teams Cnc Router Operator Relationship Specialty Start Date End Date Hermes Ramirez III, MD [address] [address] PCP - General FAMILY PRACTICE 06/20/17 04/13/24 Lyly Fiore NP [address] [place] [address] PCP - General NURSE PRACTITIONER 04/14/24 documented as of this encounter
--- OUTSIDE RECORDS SUMMARY | 2024-10-26 00:30 | XMS_ITS | Encounter Summary ---
Author Organization [facility] Address [address] [place] [address] Care Team Providers Care Graves Registration Specialist Name Role Phone Hermes Ramirez MD Primary Care Provider Reason for Visit * Reason Onset Date Comments Refill Request 09/02/2022 Encounter Details Date Type Department Care Team (Late st Contact Info) Description 09/02/2022 Refill [facility] [address] [phone] Tico Salmon NP [address] [place] [address] Refill Request Social History Tobacco [...] Currently or in the past 3 m [facility], have you worried your food would run out before you had money to buy more? No 2021 In the past 12 months, have you run out of food or been unable to get more? No 02/18/2022 Transportation Needs Answer Date Record ed Currently or in the past 3 m [facility], has lack of transportation kept you [...] on file Legal Sex Female 1:03 PM SASH INSTALLER Gender Identity Not on file Sexual [...] documented as of this encounter Care Teams Graves Registration Specialist Relationship Specialty Start Date End Date Hermes Ramirez MD [address] [place] [address] PCP - General 05/28/20 documented as of this encounter
--- OUTSIDE RECORDS SUMMARY | 2024-10-26 00:30 | XMS_ITS | Encounter Summary ---
Author Organization [facility] Address [address] [facility] [place] [address] Care Team Providers Care Software Engineer Kernel Name Role Phone Hermes Ramirez MD Primary Care Provider Reason for Visit * Reason Onset Date Comments Refill Request 02/15/2021 Encounter Details Date Type Department Care Team ([facility] st Contact Info) Description 02/15/2021 Refill [place] Transplant [facility] [address] [id number] Allen Manzano PAVasquez [address] [facility] [address] [place] [address] Refill Request Social History Tobacco [...] on file Legal Sex Female 1:03 PM IMPROVEMENT INTERN Gender Identity Not on file Sexual Orientation Not on file COVID-19 Exposure Response Date Recorded In the last month, have you been in contact with someone who was confirmed or suspected to have Coronavirus / COVID-19? Yes 02/17/2021 2:11 PM IMPROVEMENT INTERN documented as of this encounter Plan of [...] as of this encounter Care Teams Software Engineer Kernel Relationship Specialty Start Date End Date Hermes Ramirez MD [address] [place] [address] PCP - General 05/28/20 documented as of this encounter
--- OUTSIDE RECORDS SUMMARY | 2024-10-26 00:30 | XMS_ITS | Encounter Summary ---
Author Organization [facility] Address [address] [place] [address] Care Team Providers Care Furniture Lumber Production Worker Name Role Phone Hermes Ramirez MD Primary Care Provider Reason for Visit * Reason Comments Refill Request Encounter Details Date Type Department Care Team (Late st Contact Info) Description 10/21/2020 Refill [place] Transplant [facility] [address] [facility] [address] [place] [address] Nirav Carpio MD [address] [place] [phone] Refill Request Social History Tobacco Use [...] file Legal Sex Female 1:03 PM SUPERVISOR SECURITIES VAULT Gender Identity Not on file Sexual Orientation [...] documented as of this encounter Care Teams Furniture Lumber Production Worker Relationship Specialty Start Date End Date Hermes Ramirez MD [address] [place] [address] PCP - General 05/28/20 documented as of this encounter
--- OUTSIDE RECORDS SUMMARY | 2024-10-26 00:30 | XMS_ITS | Clinical Summary ---
Author Organization [facility] Address [address] [place] [address] Phone Care Team Providers Care Panel Maker Name Role Phone Hermes Ramirez MD Primary Care Provider [phone] Allergies Active Allergy Reactions Criticality Noted Date [...] BEDTIME 2 Active Butalbital-APAP -Caff-Cod (Fioricet/Codei ne) [id number] MG Capsule Take by mouth. 2 Active [...] 07/26/2024 5:51 PM CDT Emergency [facility] Emergency [address] [place] [address] Gabriel Mcintyre PAC GERD (gastroesophageal reflux disease) [...] patient's age to complete this topic Insurance [id number] MEDICAID BL[place] [facility] [employer] Care Teams Panel Maker Relationship Specialty Start Date End Date Hermes Ramirez MD [address] [address] PCP - General Family Medicine 05/09/18
--- OUTSIDE RECORDS SUMMARY | 2024-10-26 00:30 | XMS_ITS | Encounter Summary ---
Author Organization [facility] Address [address] [place] [address] Care Team Providers Care Bundle Wrapper Name Role Phone Chelsyolive Lyly ELISA Primary Care Provider [phone] Reason for Visit * Reason Comments Back Pain Encounter Details Date Type Department Care Team (Late st Contact Info) Description 10/25/2024 10:34 PM CDT - 10/25/2024 11:29 PM CDT Emergency [place] [facility] [address] [facility] [place] [address] Zane Marie, DO [address] [place], [place] [address] Back Pain Discharge Disposition: Home or Self [...] Sex Assigned at Female 04/05/2024 4:26 PM MATERIALS INTERN Legal Sex Female 9:15 PM MATERIALS INTERN Gender Identity Not on file Sexual [...] PM ALICIAT Wilmar Hernandez RN Active * [place] Suicide Severity Rating Scale (Screener/Recent Self-Report) Question [...] History provided by: Patient and medical records seismic survey assistant used: No Back Pain Medical History ALLERGIES: [...] D.O., dictated portions of this note using [employer] speech recognition software. Occasional wrong word or [...] Drug use: No Zane Marie DO 10/25/24 [id number] * Luz Maria Hernandez RN - 10/25/2024 10:34 PM CDT Pt presents to ER with c/o chronic back pain, pt states there is nothing new to the pain she is experiencing, no trauma. Pt states she has pending apt with pain management Oct 29 at [place]. Pt has had 2 liver transplants and [...] claudication documented in this encounter Care Teams Bundle Wrapper Relationship Specialty Start Date End Date Lyly Fiore NP [address] [place] [address] PCP - General NURSE PRACTITIONER 04/14/24 documented as of this encounter
--- OUTSIDE RECORDS SUMMARY | 2024-10-26 00:30 | XMS_ITS | Encounter Summary ---
Author Organization [facility] Address [address] [place] [address] Care Team Providers Care Meter And Regulator Shop Supervisor Name Role Phone Hermes Ramirez MD Primary Care Provider [phone] Reason for Visit * Reason Onset Date Comments Refill Request 09/06/2020 Encounter Details Date Type Department Care Team (Late st Contact Info) Description 09/06/2020 Refill MOBILE Neurology [address] [facility] [address] [place] [address] [place] [address] [place] [address] Refill Request Social History Tobacco Use Types Packs/Day Years Used Date Smoking Tobacco: Former Cigarettes 0.5 20 0 03/20/2000 - 03/20/2020 Smokeless Tobacco: Never Social Connections Answer Date Recorded Conversations with friends/family/neighbors per week Not on file 05/25/2020 Comments No Sex and Gender Information Value Date Recorded Sex Assigned at Not on file Legal Sex Female 1:03 PM PARTNER CCO Gender Identity Not on file Sexual Orientation Not on file documented as of this encounter Plan of Treatment Not on file documented as of this encounter Visit Diagnoses Not on filedocumented in this encounter Additional Health Concerns Assessment Noted Time PHQ-2 Depression Total Score: 0 07/07/19 21 9:51 AM CDT documented as of this encounter Care Teams Meter And Regulator Shop Supervisor Relationship Specialty Start Date End Date Hermes Ramirez MD [address] [place] [address] PCP - General 05/28/20 documented as of this encounter
--- OUTSIDE RECORDS SUMMARY | 2024-10-26 00:30 | XMS_ITS | Encounter Summary ---
Author Organization [facility] Address [address] [place] [address] Care Team Providers Care Summer Intern Name Role Phone Hermes Ramirez MD Primary Care Provider [phone] Reason for Visit * Reason Comments Clinical Social Work Intervention lesa dixon Encounter Details Date Type Department Care Team (Latest Contact Info) Description 01/19/2022 Patient Outreach [place] [facility] [address] [facility] [address] [place] [address] Ho Humphreys LCSW [address] [facility] [address] [place] [address] Clinical Social Work Intervention (scheduling) [...] on file Legal Sex Female 1:03 PM BUSINESS REPORTING DEVELOPER Gender Identity Not on file [...] documented as of this encounter Care Teams Summer Intern Relationship Specialty Start Date End Date Hermes Ramirez MD [address] [place], [place] [id number] PCP - General 05/28/20 documented as of this encounter
--- OUTSIDE RECORDS SUMMARY | 2024-10-26 00:30 | XMS_ITS | Encounter Summary ---
Author Organization [facility] Address [address] [place] [address] Care Team Providers Care Medical Service Technician Name Role Phone Ashley ZUNIGA MD, Hermes Perez Primary Care Provid er Lyly Fiore NP Primary Care Provider Encounter Details Date Type Department Care Team (Late st Contact Info) Description 08/25/2018 Abstract SFL CONVERSION [address] [place] [address] , Generic Conversion, Social History Tobacco Use Types Packs/Day Years Used Date Smoking Tobacco: Every Day Cigarettes 0.5 15 Smokeless Tobacco: Never Alcohol Use Standard Drinks/Week Comments No 0 (1 standard drink = 0.6 oz pur e alcohol) Comments No Sex and Gender Information Value Date Recorded Sex Assigned at Female 04/05/2024 4:26 PM ASSET PROTECTION REPRESENTATIVE Legal Sex Female 9:15 PM ASSET PROTECTION REPRESENTATIVE Gender Identity Not on file Sexual Orientation Not on file documented as of this encounter Plan of Treatment Not on file documented as of this encounter Visit Diagnoses Not on filedocumented in this encounter Additional Health Concerns Infection Onset Date Last Indicated Resolved Time COVID-19 Rule Out 03/30/2020 03/30/2020 03/30/2020 9:29 PM ASSET PROTECTION REPRESENTATIVE COVID-19 Rule Out 03/30/2020 03/30/2020 03/31/2020 12:28 PM ASSET PROTECTION REPRESENTATIVE COVID-19 Rule Out 02/16/2024 02/16/2024 02/16/2024 9:16 PM ASSET PROTECTION REPRESENTATIVE Rhinovirus 02/16/2024 02/16/2024 02/26/2024 12:3 2 AM ASSET PROTECTION REPRESENTATIVE COVID-19 Rule Out 08/26/2024 08/26/2024 08/26/2024 11:07 PM CDT Respiratory Rule Out 08/26/2024 08/26/2024 025 11:06 PM CDT documented as of this encounter Care Teams Medical Service Technician Relationship Specialty Start Date End Date Hermes Ramirez III, MD [address] [facility] [address] [place] [address] PCP - General FAMILY PRACTICE 06/20/17 04/13/24 Lyly Fiore NP [address] [place] [address] PCP - General NURSE PRACTITIONER 04/14/24 documented as of this encounter
--- OUTSIDE RECORDS SUMMARY | 2024-10-26 00:30 | XMS_ITS | Clinical Summary ---
Author Organization [facility] Address [address] [place] [address] Care Team Providers Care Fruit Grading Supervisor Name Role Phone Chelsyolive Lyly ELISA Primary Care Provider [phone] Allergies Active Allergy Reactions Criticality Noted Date [...] Problem Noted Date Diagnosed Date Acute CHF ([facility]) 02/20/2024 Viral infection 02/20/2024 Rectus sheath hematoma, initial encounter 2017 Cervical dysplasia 10/26/2016 History of vulvar dysplasia 10/26/2016 Gastric ulcer 10/24/2016 Pancreatitis ([facility]) 10/24/2016 Chronic kidney disease 10/24/2016 Anemia, unspecified 05/04/2012 Benign gestational thrombocytopenia ([facility]/HCC) History of cone biopsy of cervix 01/04/2012 History of liver transplant ([facility]) Acute pharyngitis 11/19/2010 Abdominal pain 11/13/2010 Aphthous ulcer 11/01/2010 Anxiety 07/21/2010 Encounters Date Type Department Care Team Description 10/25/2024 10:34 PM CDT - 10/25/2024 11:29 PM CDT Emergency [place] [facility] [address] [facility] [place] [address] Zane Marie, DO Back Pain Discharge Disposition: Home or Self Care (Routine Discharge) 10/25/2024 Travel 10/23/2024 8:15 AM CDT - 10/23/2024 11:53 AM CDT Emergency [place] [facility] [address] [facility] [address] Dolly Manriquez, HOLISTIC NUTRITIONIST Back Pain; Headache Discharge Disposition: Home or Self Care (Routine Discharge) 10/23/2024 Travel 10/18/2024 9:00 PM CDT - 10/18/2024 10:23 PM CDT Emergency [facility] Services [address] [place] [address] Allen Foster MD Headache Discharge Disposition: Home or Self Care (Routine Discharge) 10/18/2024 Travel 10/17/2024 9:23 PM CDT - 10/17/2024 11:06 PM CDT Emergency [place] [facility] [address] [facility] [address] Karmen Byrd PA Headache; Back Pain Discharge Disposition: Home or Self Care (Routine Discharge) 10/17/2024 Travel 10/15/2024 9:28 AM CDT - 10/15/2024 11:59 AM CDT Emergency [place] [facility] [address] [facility] [address] Bharat Carroll MD McHood, Jillian M, HOLISTIC NUTRITIONIST Headache; Back Pain Discharge Disposition: Home or Self Care (Routine Discharge) 10/15/2024 Travel 10/11/2024 5:04 AM CDT - 10/11/2024 5:19 AM CDT Emergency [facility] [address] [place] [address] Prasad Metcalf MD Headache Recurrent Or Know Dx Migraine; Back Pain Discharge Disposition: Home or Self Care (Routine Discharge) 10/11/2024 Travel 09/14/2024 12:28 AM CDT - 09/14/2024 1:50 AM CDT Emergency [place] [facility] [address] [facility] [address] Zack Kc MD Back Pain; Headache Discharge Disposition: Home or Self Care (Routine Discharge) 09/13/2024 Travel 08/28/2024 10:52 PM CDT - 08/29/2024 3:30 AM CDT Emergency [place] [facility] [address] [facility] [place] [address] Radu Loya MD Cough; Vomiting; URI Discharge Disposition: Home or Self Care (Routine Discharge) 08/28/2024 Travel 08/26/2024 10:28 PM CDT - 08/27/2024 12:30 AM T Emergency [facility] [address] [facility] [place] [address] Karmen Byrd PA Medical Screening Discharge Disposition: Home or Self Care (Routine Discharge) 08/26/2024 Travel 08/08/2024 10:19 PM CDT - 08/08/2024 10:39 PM CDT Emergency [place] [facility] [address] [facility] [address] Roopa Damon NP Back Pain Discharge Disposition: Home or Self Care (Routine Discharge) 08/08/2024 Travel 08/07/2024 11:33 PM CDT - 08/08/2024 12:45 AM CDT Emergency [facility] [address] [place] [address] Danish Menjivar MD Back Pain; Urinary Symptoms Discharge Disposition: Home or Self Care (Routine Discharge) 08/07/2024 Travel 07/31/2024 1:03 PM CDT - 07/31/2024 2:31 PM CDT Emergency [facility] [address] [place] [address] Back Pain; Leg Pain Discharge Disposition: Home or Self Care (Routine Discharge) 07/31/2024 12:15 AM CDT - 07/31/2024 1:13 AM CDT [facility] [address] [place] [address] Back Pain Discharge Disposition: Left Against Medical [...] time in the past 12 m [facility], were you homeless or living in a nursing home (including now)? No 02/20/2024 Comments No Sex and Gender Information Value Date Recorded Sex Assigned at Female 04/05/2024 4:26 PM SUPERVISORY CLERK Legal Sex Female 9:15 PM SUPERVISORY CLERK Gender Identity Not on file Sexual [...] - 145 MMOL/L 08/29/2024 12:04 AM T [facility] POTASSIUM S/P/B 4.0 3.6 - 5.0 MMOL/L 08/29/2024 12:04 AM [facility] CHLORIDE S/P/B 111 97 - 115 MMOL/L 08/29/2024 12:04 AM [facility] CO2 26.6 21.0 - 32.0 MMOL/L 08/29/2024 12:04 AM [facility] GLUCOSE 104(H) 70 - 99 MG/DL 08/29/2024 12:04 AM [facility] Comment: FASTING GLUCOSE 100 TO 125 MG/DL IS CONSISTENT WITH IMPAIRED FASTING GLUCOSE. FASTING GLUCOSE >125 MG/DL IS CONSISTENT WITH DIABETES. RANDOM GLUCOSE >200 MG/DL WITH HYPERGLYCEMIC SYMPTOMS IS CONSISTENT WITH DIABETES. PER ADA GUIDELINES BUN 23(H) 7 - 18 MG/DL 08/29/2024 12:04 AM T [facility] CREATININE S/P/B 2.26(H) 0.55 - 1.02 MG/DL 08/29/2024 12:04 AM [facility] CALCIUM S/P/B 8.5 8.5 - 10.1 MG/DL 08/29/2024 12:04 AM [facility] BILIRUBIN TOTAL S/P/B 1.6(H) 0.2 - 1.0 MG/DL 08/29/2024 12:04 AM [facility] Comment: THIS ASSAY IS NOT RECOMMENDED FOR PATIENTS UNDERGOING TREATMENT WITH ELTROMBOPAG DUE TO THE POTENTIAL FOR FALSELY ELEVATED RESULTS. ALKALINE PHOSPHATASE S/P/B 244(H) 37 - 98 U/L 08/29/2024 12:04 AM [facility] AST 25 15 - 37 U/L 08/29/2024 12:04 AM [facility] ALT 21 13 - 56 U/L 08/29/2024 12:04 AM [facility] TOTAL PROTEIN S/P/B 6.2(L) 6.4 - 8.0 G/DL 08/29/2024 12:04 AM [facility] ALBUMIN S/P/B 3.3(L) 3.4 - 5.0 G/DL 08/29/2024 12:04 AM [facility] ANION GAP 2.4 2.0 - 10.0 MMOL/L 08/29/2024 12:04 AM [facility] OSMOLALITY (CALC) 294 MOSM/KG 025 12:04 AM [facility] GFR ESTIMATE 27(L) >90 ML/MIN/1. 73 M2 08/29/2024 12:04 AM [facility] GFR NOTES GFR REFERENCE S: 08/29/2024 12:04 AM [facility] Comment: THE [...] CDT Radu Loya MD LABORATORY Final Result [facility] [address] [place] [address], * (ABNORMAL) CBC W/DIFF AUTOMATED (08/28/2024 11:31 PM CDT) Only the most recent of3 resultswithin the time period is included. WBC 5.58 4.00 - 10.80 x10'3/uL 08/28/2024 11:44 PM CDT [facility] RBC 3.09(L) 4.10 - 5.40 x10'6/uL 08/28/2024 11:44 PM CDT [facility] HGB 12.4 12.0 - 16.0 G/DL 08/28/2024 11:44 PM CDT [facility] HCT 33.6(L) 36.0 - 47.0 % 08/28/2024 11:44 PM CDT [facility] MCV 108.7(H) 78.0 - 100.0 FL 08/28/2024 11:44 PM CDT [facility] MCH 40.1(H) 27.0 - 31.0 PG 08/28/2024 11:44 PM CDT [facility] MCHC 36.9(H) 33.0 - 36.0 G/DL 08/28/2024 11:44 PM CDT [facility] RDW 13.9 11.5 - 14.5 % 08/28/2024 11:44 PM CDT [facility] PLT 123(L) 150 - 350 x10'3/uL 08/28/2024 11:44 PM CDT [facility] MPV 11.0(H) 7.4 - 10.4 FL 08/28/2024 11:44 PM CDT [facility] DIFFERENTIAL TYPE AUTOMATED 08/28/2024 11:44 PM CDT [facility] SEG NEUTROPHILS 73.3 % 11:44 PM CDT [facility] LYMPHOCYTES 15.6 % 08/28/2024 11:44 PM CDT [facility] MONOCYTES 8.6 % 08/28/2024 11:44 PM CDT [facility] EOSINOPHILS 1.6 % 08/28/2024 11:44 PM CDT [facility] BASOPHILS 0.2 % 08/28/2024 11:44 PM CDT [facility] IMMATURE GRANS % 0.7 % 08/29/19 11:44 PM T [facility] NRBC 0.0 % 08/28/2024 11:44 PM CDT [facility] ABS. NEUTROPHILS 4.09 1.60 - 8.30 x10'3/uL 08/28/2024 11:44 PM T [facility] ABS. LYMPHOCYTES 0.87 0.80 - 4.70 x10'3/uL 08/28/2024 11:44 PM T [facility] ABS. MONOCYTES 0.48 0.00 - 1.50 x10'3/uL 08/28/2024 11:44 PM T [facility] ABS. EOSINOPHILS 0.09 0.00 - 0.40 x10'3/uL 08/28/2024 11:44 PM T [facility] ABS. BASOPHILS 0.01 0.00 - 0.20 x10'3/uL 08/28/2024 11:44 PM CDT [facility] ABS. IMMATURE GRANULOCYTES 0.04(H) 0.00 - 0.03 x10'3/uL 08/28/2024 11:44 PM CDT [facility] ABS. NUCLEATED RBC'S 0.00 0.00 - 0.01 x10'3/uL 08/28/2024 11:44 PM CDT [facility] 08/28/2024 11:3 1 PM CDT Radu Loya MD LABORATORY Final Result [facility] [address] [place] [address], * Critical Care (08/28/2024 11:05 PM CDT) [...] or life-threatening deterioration of the following conditions: DISABILITY ADVOCATE failure or compromise and respiratory failure Critical [...] 11:20 PM Narrative 08/26/2024 11:[address] PM [address] [place] [address] EXAMINATION: Chest X-Ray 2 View EXAM DATE/TIME: [...] Procedure Note David Hart MD - 08/26/[address] [place], [place] [address] EXAMINATION: Chest X-Ray 2 View EXAM DATE/TIME: [...] IA NEGATIVE NEGATIVE 08/26/2024 11:07 PM CDT [facility] Comment: NEGATIVE RESULTS SHOULD [...] SPECIMEN TYPE NASAL 08/26/2024 10:40 PM CDT [facility] NASAL NASAL STRUCTURE / Unknown 08/26/2024 10:39 PM CDT us Karmen EDMOND MICROBIOLOGY - GENERAL ORDERABLES Final Result [facility] [address] [place] [address], [place] [phone] * INFLUENZA A & B (08/26/2024 10:39 PM CDT) Pathologist [facility] SPECIMEN TYPE (INFLUENZA) NASAL 08/26/2024 10:40 PM CDT [facility] INFLUENZA A NEGATIVE NEGATIVE 08/26/2024 11:06 PM CDT [facility] INFLUENZA B NEGATIVE NEGATIVE 08/26/2024 11:06 PM CDT [facility] NASAL STRUCTURE / Unknown 08/26/2024 10:39 PM CDT us Karmen EDMOND MICROBIOLOGY - GENERAL ORDERABLES Final Result [facility] [address] [place] [address], * (ABNORMAL) URINALYSIS (08/26/2024 10:39 PM CDT) Only the most recent of2 resultswithin the time period is included. SPECIMEN TYPE URINE VOIDED 10:40 PM [facility] COLOR (U) YELLOW 08/26/2024 11:02 PM [facility] TRANSPARENCY CLEAR 08/26/2024 11:02 PM [facility] SPECIFIC GRAVITY (U) 1.016 1.002 - 1.035 08/26/2024 11:02 PM [facility] U PH 6.0 5.0 - 9.0 08/26/2024 11:02 PM [facility] LEUKOCYTES (U) NEGATIVE NEGATIVE 08/26/2024 11:02 PM [facility] NITRITES NEGATIVE NEGATIVE 08/26/2024 11:02 PM [facility] PROTEIN RANDOM (U) TRACE(A) NEGATIVE 08/26/2024 11:02 PM [facility] GLUCOSE (U) NORMAL NORMAL 08/26/2024 11:02 PM [facility] KETONES MG/DL (U) NEGATIVE NEGATIVE 08/26/2024 11:02 PM [facility] UROBILINOGEN 2.0(H) 0 - 1 EU/DL 08/26/2024 11:02 PM [facility] BILIRUBIN (U) NEGATIVE NEGATIVE 08/26/2024 11:02 PM [facility] BLOOD (U) NEGATIVE NEGATIVE 08/26/2024 11:02 PM [facility] MUCUS FEW 08/26/2024 11:02 PM [facility] WBC/HPF 0-5 /HPF 08/26/2024 11:02 PM [facility] RBC/HPF 0-5 /HPF 08/26/2024 11:02 PM CDT [facility] SQUAMOUS EPITHELIALS MODERATE 08/26/2024 11:02 PM CDT [facility] URINE SPECIMEN FROM URETHRA / Unknown 08/26/2024 10:39 PM CDT us Karmen EDMOND URINE ORDERABLES Final Result [facility] [address] [place] [address], [place] [phone] * STREP A RAPID (08/26/2024 10:39 PM CDT) SPECIMEN SOURCE THROAT 08/26/2024 10:40 PM CDT [facility] RAPID STREP TEST NEGATIVE NEGATIVE 08/26/2024 11:06 PM CDT [facility] STRUCTURE OF ANTERIOR PORTION OF NECK / Unknown 08/26/2024 10:39 PM CDT us Karmen EDMOND MICROBIOLOGY - GENERAL ORDERABLES Final Result Performing Organization Address [facility] Co de Phone Number [facility] [address] [place] [address], [place] [phone] * MAGNESIUM (08/26/2024 10:39 PM CDT) MAGNESIUM 1.6 1.6 - 2.6 MG/DL 08/26/2024 11:20 PM CDT [facility] Comment:RESULT QUESTIONABLE DUE TO HEMOLYSIS, CONSIDER RECOLLECTION. 08/26/2024 10:3 9 PM CDT us Karmen EDMODN LABORATORY Final R esult [facility] [address] [place] [address], * (ABNORMAL) BASIC METABOLIC PANEL (08/08/2024 12:07 AM CDT) SODIUM S/P/B 137 136 - 145 MMOL/L 08/08/2024 12:36 AM CDT [facility] POTASSIUM S/P/B 4.5 3.5 - 5.1 MMOL/L 08/08/2024 12:36 AM CDT [facility] CHLORIDE S/P/B 111 97 - 115 MMOL/L 08/08/2024 12:36 AM CDT [facility] CO2 19.6(L) 21.0 - 32.0 MMOL/L 08/08/2024 12:36 AM CDT [facility] GLUCOSE 144(H) 74 - 106 MG/DL 08/08/2024 12:36 AM CDT [facility] BUN 28(H) 7 - 18 MG/DL 08/08/2024 12:36 AM CDT [facility] CREATININE S/P/B 2.01(H) 0.55 - 1.02 MG/DL 08/08/2024 12:36 AM CDT [facility] CALCIUM S/P/B 9.2 8.5 - 10.1 MG/DL 08/08/2024 12:36 AM CDT [facility] ANION GAP 6.4 2.0 - 10.0 MMOL/L 08/08/2024 12:36 AM CDT [facility] OSMOLALITY (CALC) 292 MOSM/KG 025 12:36 AM T [facility] Comment:REFERENCE RANGE NOT ESTABLISHED GFR ESTIMATE 31(L) >90 ML/MIN/1. 73 M2 08/08/2024 12:36 AM T [facility] GFR NOTES GFR REFERENCE S: 08/08/2024 12:36 AM CDT [facility] Comment: THE ESTIMATED GFR IS [...] MD LABORATORY Final Result Performing Organization Address [facility] de Phone Number [facility] [address] [place] [address], [id number] * CULTURE URINE (08/07/2024 11:55 PM CDT) SPEC DESCRIPTION URINE, UNSPECIFIED 08/07/2024 11:55 PM CDT [facility] SPECIAL REQUESTS NO SPECIAL REQUEST 08/07/2024 11:55 PM CDT [facility] CULTURE RESULT NO GROWTH (< OR = 1,000 CFU/ML) 08/09/2024 9:03 AM CDT [facility] URINE SPECIMEN / Unknown 08/07/2024 11:55 PM CDT 08/08/2024 12:15 AM CDT us Danish Menjivar MD MICROBIOLOGY - GENERAL ORDER KAREN Final Result Performing Organization Address [facility] Co de Phone Number [facility] [address] [place] [address], [id number] * HUMAN PAPILLOMAVIRUS, HIGH-RISK TYPES (06/20/2022 12:00 PM CDT) SPECIMEN CERVICAL/END OCERVICAL 06/22/2022 8:18 AM CDT [facility] HPV DNA HIGH RISK NEGATIVE NEGATIVE 06/22/2022 7:35 PM CDT [facility] Comment:SEE CYTOLOGY REPORT 06/20/2022 12:0 0 PM CDT us Sekou Scherer MD PATHOLOGY/CYTOLOGY ORDER KAREN Final Result [facility] [address] [place] [address], * Cytopath Cerv/Vag Thin Layer (06/20/2022 7:46 AM CDT) THIN PREP PAP [facility] [address] [place] [address] Department of Pathology Pathology Report CERVICAL/VAGINAL PAP SMEAR REPORT Name: MISHA BROWNE Age: 7 1980 (Age: 41) Location: [facility] Sex: F Collected Date: 06/20/2022 [facility] #: [id number] Date Received: 06/22/2022 Date Reported: 06/24/2022 Provider: [...] Cohen (ASCP) CLINICAL HISTORY Z12.4 PAP HISTORY-NILM SENIOR EDUCATION SPECIALIST SURGICAL HISTORY-HPV+ 05/17/16 LASER/CRYOTHERAPY ThinPrep Pap Test [...] is not effective in detecting cervical adenocarcinoma. [facility] 06/20/2022 7:46 AM CDT 06/22/2022 7:46 AM CDT Comment:CERVICAL/ENDOCERVICA L us Sekou Scherer MD PATHOLOGY/CYTOLOGY ORDER KAREN Final Result [facility] [address] [place] [address], from Last 3 Months or Most Recently Relevant to Health Maintenance Insurance MEDICAID Advance Directives * Full Code (Latest Code Status on File) Date Activated Date Inactivated Comments 02/20/2024 1:27 AM 02/20/2024 11:44 AM * Full Code Date Activated Date Inactivated Comments 06/21/2017 12:22 AM 06/21/2017 8:16 PM Care Teams [employer] Grading Supervisor Relationship Specialty Start Date End Date Lyly Fiore NP [address] [place] [address] PCP - General NURSE PRACTITIONER 04/14/24
--- OUTSIDE RECORDS SUMMARY | 2024-10-26 00:30 | XMS_ITS | Encounter Summary ---
Author Organization [facility] Address [address] [facility] [place] [address] Care Team Providers Care Electrical Electronics Engineer Name Role Phone Hermes Ramirez MD Primary Care Provider Reason for Visit * Reason Onset Date Comments Refill Request 05/06/2023 Encounter Details Date Type Department Care Team (Late st Contact Info) Description 05/06/2023 Refill [place] [facility] [address] [address] Marion Pedroza MD [address] [place] [address] Refill Request Social History [...] in the past 3 m [facility], have you worried your food [...] on file Legal Sex Female 1:03 PM 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
--- OUTSIDE RECORDS SUMMARY | 2024-10-26 00:30 | XMS_ITS ---
Author Organization [facility] Address [address] [place] [address] Care Team Providers Care Loss Control Technician Name Role Phone Hermes Ramirez MD Primary Care Provider Transplant Episode Kidney, Liver Recipient [facility] ([place], [place]) - [place] Organs Received: Liver, Left Kidney Transplanted on 05/09/2020 Marked as Active Follow-up on 05/09/2020 Kidney, Liver CoordinatorMisty Ash RN Phone: N/A Fax: N/A Email: N/A [place] Organ Diagnosis Organ Primary Contributory Kidney Calcineurin [...] N/A Palak Garnica MD Transplant Attending Physician [phone] [email or web address] Nirav Carpio MD Transplant Surgeon [phone] N/A Snow Orozco MD Transplant Consumer Banker [phone] [email or web address] Events Post-Transplant Pre-Transplant Admitted: 05/08/2020 Referred: 04/24/2020 Transplanted: 05/09/2020 Evaluation began: Discharged: 05/18/2020 Committee: 04/30/2020 Center waitlisted:
--- OUTSIDE RECORDS SUMMARY | 2024-10-26 00:30 | XMS_ITS | Continuity of Care Document ---
Author Organization [facility] Address [address] [place] [address] Phone Care Team Providers Care Final Rail Cutter Name Role Phone Santana Timmons MD Unavailable Unavailable Procedures Procedure Date Subsequent Hospital Care Initial Inpatient Consult Advance Directives Directive Yes / No Effective Date File Name No Information Encounters Encounter Description Practice Location Reason(s) For Visit Diagnoses Date Provider Providers Copied on Encounter Subsequent Hospital Care [facility], [address] [place] [address], [id number], tel:[phone] [facility] No Information 1 Shanelle Dillon. [address] [place] [address], [id number], [place]. tel:[phone] Referring Provider: Hermes Ramirez , [address] [place] [address], [address]. tel:[phone] Initial Inpatient Consult [facility], [address] [place] [address], [id number], tel:[phone] [facility] No Information Shanelle Dillon. [address] [place] [address], [id number], . tel:[phone] Referring Provider: Hermes Ramirez [address], [address]. tel:[phone] Family History Family Member Type Diagnosis Age At Onset No Information Payers Payer name Insurance type Covered constitution party ID Authoriza tiyoan(s) [facility] [id number] Social History Type Description Quantity Date Captured Comments Sex Female Smoking Status No Information Chief Complaint And Reason For Visit No Information History Of Present Illness Encounter Date Complaint History Of Prese nt Illness No Information Instructions Date Instruction Additional Infor mation No Information Assessments Type Assessment Date No Information
--- OUTSIDE RECORDS SUMMARY | 2024-10-26 00:30 | XMS_ITS | Encounter Summary ---
Author Organization [facility] Address [address] [facility] [address] [place] [address] Care Team Providers Care Crop Puller Name Role Phone Hermes Ramirez MD Primary Care Provider Reason for Visit * Reason Comments Refill Request Encounter Details Date Type Department Care Team ([facility] st Contact Info) Description 01/10/2023 Refill [place] [facility] [address] [facility] [address] [place] [address] Allen Manzano, PAMoisésC [address] [facility] [address] [place] [address] Refill Request Social History Tobacco [...] or in the past 3 m [facility], have you worried your food would run [...] on file Legal Sex Female 1:03 PM 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
--- OUTSIDE RECORDS SUMMARY | 2024-10-26 00:30 | XMS_ITS | Encounter Summary ---
Author Organization [facility] Address [address] [place] [address] Care Team Providers Care Vessel Scrapper Name Role Phone Hermes Ramirez MD Primary Care Provider Encounter Details Date Type Department Care Team (Late st Contact Info) Description 07/16/2022 Telephone [place] [facility] [address] [facility] [address] [place], [place] [id number] Hollie Eugene RN Social History Tobacco Use [...] Currently or in the past 3 m [facility], have you worried your [...] on file Legal Sex Female 1:03 PM DISPATCHER CHIEF OIL Gender Identity Not on file Sexual Orientation Not on file COVID-19 Exposure Response Date Recorded In the last 10 days, have yo u been in contact with someone who was confirmed or suspected to have Coronavirus/COVID-19? No / Unsure 07/13/2022 3:03 PM CDT documented as of this encounter Progress Notes * Hollie Eugene RN - 07/16/2022 6:43 PM CDT Patient called the sales and operations trainee answering service. Per patient she is having [...] documented as of this encounter Care Teams Vessel Scrapper Relationship Specialty Start Date End Date Hermes Ramirez MD [address] [place] [address] PCP - General 05/28/20 documented as of this encounter
--- OUTSIDE RECORDS SUMMARY | 2024-10-26 00:30 | XMS_ITS | Clinical Summary ---
Author Organization [facility] Address [address] [place] [address] Care Team Providers Care Psychiatric Aides Teacher Name Role Phone Beatriz Lee MD Unavailable [phone] Lyly Fiore FURNACE FEEDER Primary Care Provider Taylor Kitchen RN Unavailable [...] the original. Lab: [facility]. . . Pharmacy: [place], [place] Patient enrolled in [employer] assistance program for Envarsus until 03/2025 -[facility] for script Problem Noted Date Diagnosed [...] with baseline creatinine ~2. Previously followed at [facility], but has she has been wanting to transfer care to [place] but has not been able to schedule an appointment. She follows with [facility]. Per Liver Transplant office [...] with baseline creatinine ~2. Previously followed at [facility], but has she has been wanting to transfer care to [place] but has not been able to schedule an appointment. She follows with [facility]. Per Liver Transplant office [...] with baseline creatinine ~2. Previously followed at [facility], but has she has been wanting to transfer care to [place] but has not been able to schedule an appointment. She follows with [facility]. Per Liver Transplant office [...] with baseline creatinine ~2. Previously followed at [facility], but has she has been wanting to transfer care to [place] but has not been able to schedule an appointment. She follows with [facility]. Per Liver Transplant office [...] with baseline creatinine ~2. Previously followed at [facility], but has she has been wanting to transfer care to [place] but has not been able to schedule an appointment. She follows with [facility]. Per Liver Transplant office [...] with baseline creatinine ~2. Previously followed at [facility], but has she has been wanting to transfer care to [place] but has not been able to schedule an appointment. She follows with [facility]. Per Liver Transplant office [...] with baseline creatinine ~2. Previously followed at [facility], but has she has been wanting to transfer care to [place] but has not been able to schedule an appointment. She follows with [facility]. Per Liver Transplant office [...] with baseline creatinine ~2. Previously followed at [facility], but has she has been wanting to transfer care to [place] but has not been able to schedule an appointment. She follows with [facility]. Per Liver Transplant office [...] with baseline creatinine ~2. Previously followed at [facility], but has she has been wanting to transfer care to [place] but has not been able to schedule an appointment. She follows with [facility]. Per Liver Transplant office [...] with baseline creatinine ~2. Previously followed at [facility], but has she has been wanting to transfer care to [place] but has not been able to schedule an appointment. She follows with [facility]. Per Liver Transplant office [...] with baseline creatinine ~2. Previously followed at [facility], but has she has been wanting to transfer care to [place] but has not been able to schedule an appointment. She follows with [facility]. Per Liver Transplant office [...] we would not be able to prescribe alf opioids on discharge. Discussed importance of outpatient [...] we would not be able to prescribe alf opioids on discharge. Discussed importance of outpatient [...] we would not be able to prescribe alf opioids on discharge. Discussed importance of outpatient [...] we would not be able to prescribe alf opioids on discharge. Discussed importance of outpatient [...] we would not be able to prescribe alf opioids on discharge. Discussed importance of outpatient [...] we would not be able to prescribe alf opioids on discharge. Discussed importance of outpatient [...] with baseline creatinine ~2. Previously followed at [facility], but has she has been wanting to transfer care to [place] but has not been able to schedule an appointment. She follows with [facility]. Per Liver Transplant office [...] with baseline creatinine ~2. Previously followed at [facility], but has she has been wanting to transfer care to [place] but has not been able to schedule an appointment. She follows with [facility]. Per Liver Transplant office [...] with baseline creatinine ~2. Previously followed at [facility], but has she has been wanting to transfer care to [place] but has not been able to schedule an appointment. She follows with [facility]. Per Liver Transplant office [...] with baseline creatinine ~2. Previously followed at [facility], but has she has been wanting to transfer care to [place] but has not been able to schedule an appointment. She follows with [facility]. Per Liver Transplant office [...] with baseline creatinine ~2. Previously followed at [facility], but has she has been wanting to transfer care to [place] but has not been able to schedule an appointment. She follows with [facility]. Per Liver Transplant office [...] with baseline creatinine ~2. Previously followed at [facility], but has she has been wanting to transfer care to [place] but has not been able to schedule an appointment. She follows with [facility]. Per Liver Transplant office [...] Transplant starting process of assuming care from [facility], but in short term they recommend patient follow up with renal transplant at [facility]. - She is NOW actively enrolled in the [employer] free patient assistance program through mar 2025 - script needs to be sent to [facility] (sent). Hyperbilirubinemia 04/16/2020 Assessment & Plan (04/16/2020 5:01 AM ROLL CLEANER): - T. Bili of 7 (last was [...] 07/25/2019 Assessment & Plan (04/16/2020 2:25 AM ROLL CLEANER): See hyperbili problem. Concern for ascites Assessment [...] 12/14/2016 Assessment & Plan (04/16/2020 2:26 AM ROLL CLEANER): - Chronic, concerned that this may be [...] and kidney transplant 04/2020. 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 We would need to call [facility] to identify a contracted center ([phone]). She lives close enough to [place] that would be the most likely city she could travel to. She also noted that she could always remarry an ex- as he has insurance that may be covered at [facility]/. Appreciate note from nephrology and agree with restarting oral diuretics. Can continue tacrolimus at the current dose. MRI/MRCP completed and will review with radiology to identify if any role for PTC. Assessment & Plan (04/16/2020 2:26 AM ROLL CLEANER): S/p liver tranplant in 1992 for biliary [...] meds Assessment & Plan (04/16/2020 5:01 AM ROLL CLEANER): Unclear if progression of CKD vs acute [...] Cr of 1.8. She follows with local executive vice president and chief financial officer Dr. Mathew and thinks her baseline is 2.1. She was at 2.3 at OSH. She took some diuretics at home and was given lasix at OSH ED. --UA, urine lytes --get records from her executive vice president and chief financial officer to find out baseline --random tacro level --monitor Is & Os; avoid nephrotoxins Encounters Date Type Department Care Team Description 10/24/2024 Documentation [facility] Transplant Liver [address] [facility] [address] [phone] [place] [address] Taylor Kitchen RN 10/23/2024 Telephone [facility] Transplant Liver [address] [facility] [address] [phone] [place] [address] Liyah Kamara 09/26/[address] [facility] [address] [place] [address] Advanced Medicine [address] [place] [address] Igor Graham MD Post-Op Call 09/25/2024 8:48 AM CDT - 09/25/2024 11:59 PM CDT Hospital Encounter [facility] [address] [place] [address] for Advanced Medicine [address] [place] [address] Igor Graham MD Lumbar disc disease with radiculopathy (Primary Dx); Lumbar spondylosis Discharge Disposition: Discharge to home or self care 09/19/[address] [facility] [address] [place] [address] for Advanced Medicine [address] [place] [address] Igor Graham MD PMC Preprocedure 09/09/2024 SHOP/CHAP Initial Eligibility Review [facility] OP CASE MANAGEMENT [address] [place] [address] Shireen Griffin RN 08/31/2024 11:48 PM CDT - 09/06/2024 4:45 PM CDT Hospital Encounter [facility] [address] [place] [address] Elisha Avila MD Freilich, MD Vicente Aguirre, Britta Alarcon MD Abdominal pain (Primary Dx); Liver transplant failure and rejection (HCC); Rhinovirus infection Discharge Disposition: Discharge to home or self care 08/27/[address] [facility] [address] [place] [address] Igor Graham MD Pre Procedure 08/15/2024 10:30 AM CDT Clinical Support [place] [address] [facility] 1st [place] [address] Brielle Carrillo, PhD 08/15/2024 Results Follow-Up [facility] Transplant Liver [address] [facility] [address] [phone] [place] [address] Taylor Kitchen RN Surgical pathology 08/14/2024 12:21 PM CDT - 08/14/2024 11:59 PM CDT Hospital Encounter [facility] Advanced Medicine [facility] [address] [place] [address] Igor Graham MD Lumbar spondylosis (Primary Dx); Lumbar disc disease with radiculopathy Discharge Disposition: Discharge to home or self care 08/02/2024 Orders Only [facility] [address] [place] [address] Beatriz Lee MD History of liver transplant (HCC); History of kidney transplant 08/01/[address] [facility] Transplant Liver [address] [facility] [address] [phone] [place] [address] Misty Vail RN 07/29/[address] [facility] Transplant Liver [address] [id number] [place] [address] JohnnyNikiLorena 07/26/2024 2:55 PM CDT - 07/26/2024 2:56 PM CDT Emergency [facility] Emergency Department [address] [place] [address] Discharge Disposition: Left without being seen from Last 3 Months Surgical History Surgery Date Site/Laterality Comments OH COLONOSCOPY FLX DX W/ROMAIN J SPEC WHEN [...] 0.6 oz pur e alcohol) rare [facility] Utilities Answer Date Recorded In the past 12 months has th [employer], gas, oil, or water [employer] threatened to shut off services in your [...] week 09/03/2024 How often do you attend [facility] or gnosticist services? Never 09/03/2024 Do you belong to any clubs o r organizations such as orthodoxy groups, unions, fraternal or athletic groups, or [...] time in the past 12 m [facility], were you homeless or living in a [place] facility (including now)? No 09/03/2024 Personal Safety Answer Date Recorded Have you ever been in or are you currently in a harmful physical or emotional relationship or is someone making you feel afraid or unsafe? Denies 09/02/2024 Comments No Sex and Gender Information Value Date Recorded Sex Assigned at Not on file Legal Sex Female 10:10 PM ROLL CLEANER Gender Identity Not on file Sexual [...] transplant HEPATITIS PANEL, ACUTE Routine 6:35 AM ROLL CLEANER from Last 3 Months or Most Recently Relevant to Health Maintenance Results * Imaging Lumbar/Sacral Facet Medial Branch Block Bilateral (17361) (09/25/2024 9:47 AM CDT) Narrative RAD_PACS_[facility] - [...] ORDERABLES Aniya l Result Performing Organization Address [facility] [place] [address] * Tacrolimus level trough (09/06/2024 9:48 AM CDT) Pathologist [facility] Tacrolimus trough 6.4 ng/mL Comment: Interpretive Data [...] BLOOD ORDERABLES Final Result Performing Organization Address [facility] [place] [address] * (ABNORMAL) Comprehensive metabolic panel (09/06/2024 9:48 AM CDT) [facility] Sodium 139 135 - 145 mmol/L [...] 2022. Calcium 8.8 8.5 - 10.3 mg/dL [facility] Bilirubin, total 0.6 0.1 - 1.2 mg/dL [facility] Protein, pl 6.1(L) 6.5 - 8.5 g/dL [facility] Albumin 3.5 3.5 - 5.0 g/dL [facility] Alk phos 241(H) 40 - 130 Units/L [facility] ALT 17 7 - 45 Units/L [facility] AST 41 10 - 45 Units/L [facility] Comment:Hemolyzed; result ma y be falsely elevated Blood 09/06/2024 9:48 AM CDT 09/06/2024 10:15 AM CDT us Britta Zhang MD LAB BLOOD ORDERABLES Aniya l Result [facility] One [facility] [place] [address] * (ABNORMAL) eGFR (09/05/2024 10:47 AM CDT) [...] [facility] One [facility] [place] [address] * Differential, auto (09/05/2024 10:47 AM CDT) Pathologist [facility] Neutrophil abs 3.84 1.50 - 6.50 K/cumm Imm gran abs 0.03 0.00 - 0.10 K/cumm [facility] Lymphocyte abs 1.33 0.80 - 3.30 K/cumm [facility] Monocyte abs 0.30 0.20 - 0.80 K/cumm [facility] Eosinophil abs 0.15 0.00 - 0.50 K/cumm [facility] Basophil abs 0.01 0.00 - 0.10 K/cumm [facility] Neutrophil pct 67.8 % [facility] [...] on 2017. Lymphocyte pct 23.5 % [facility] Comment: Interpretive Data Percent cell count reference ranges are not reported, since discordance with absolute values may lead to misinterpretation of CBC data. Current Interpretive Data was last revised on 2017. Monocyte pct 5.3 % [facility] Comment: Interpretive Data Percent cell count reference ranges are not reported, since discordance with absolute values may lead to misinterpretation of CBC data. Current Interpretive Data was last revised on 2017. Eosinophil pct 2.7 % [facility] Comment: Interpretive Data Percent cell count reference ranges are not reported, since discordance with absolute values may lead to misinterpretation of CBC data. Current Interpretive Data was last revised on 2017. Basophil pct 0.2 % [facility] Comment: Interpretive Data Percent cell count reference ranges are not reported, since discordance with absolute values may lead to misinterpretation of CBC data. Current Interpretive Data was last revised on 2017. Blood 09/05/2024 10:4 7 AM CDT 09/05/2024 11:03 AM CDT us Britta Zhang MD LAB BLOOD ORDERABLES Aniya maguire Result [facility] One [facility] [place] [address] * Tacrolimus level trough (09/05/2024 10:47 AM CDT) [facility] Signature Tacrolimus trough 6.2 ng/mL Comment: Interpretive [...] AM CDT 09/05/2024 11:04 AM CDT Narrative [facility] - 09/05/2024 1:14 PM CDT Draw exactly 12 HOURS after last dose of tacrolimus was given and just BEFORE giving next dose Britta Zhang MD LAB BLOOD ORDERABLES Aniya maguire Result Performing Organization Address [facility] de Phone Number [facility] Department [place] [address] * (ABNORMAL) CBC with auto differential (09/05/2024 10:47 AM CDT) Pathologist [facility] WBC 5.66 3.80 - 9.90 K/cumm Hgb [...] ORDERABLES Aniya maguire Result Performing Organization Address [facility]/ZIP Co de Phone Number [facility] [place] [address] * (ABNORMAL) Comprehensive metabolic panel (09/05/2024 10:47 AM CDT) Pathologist [facility] Sodium 143 135 - 145 mmol/L Potassium, [...] [facility] One [facility] Department [place] [address] * (ABNORMAL) eGFR (09/04/2024 5:03 AM CDT) [...] [facility] One [facility] [place] [address] * Differential, auto (09/04/2024 5:03 AM CDT) Pathologist [facility] Neutrophil abs 2.68 1.50 - 6.50 K/cumm [...] revised on 2017. Monocyte pct 5.7 % [facility] Comment: Interpretive Data Percent cell count reference ranges are not reported, since discordance with absolute values may lead to misinterpretation of CBC data. Current Interpretive Data was last revised on 2017. Eosinophil pct 2.2 % [facility] [...] [facility] One [facility] [place] [address] * Tacrolimus level trough (09/04/2024 5:03 AM [...] AM CDT 09/04/2024 5:10 AM CDT Narrative [facility] - 09/04/2024 7:32 AM CDT Draw exactly 12 HOURS after last dose of tacrolimus was given and just BEFORE giving next dose Britta Zhang MD LAB BLOOD ORDERABLES Aniya maguire Result Performing Organization Address [facility] Co de Phone Number [facility] Department [place] [address] * (ABNORMAL) CBC with auto differential (09/04/2024 [...] ORDERABLES Aniya maguire Result Performing Organization Address [facility]/ZIP Co de Phone Number [facility] [place] [address] * (ABNORMAL) Comprehensive metabolic panel (09/04/2024 5:03 [...] MD LAB BLOOD ORDERABLES Aniya andrez Result [facility] [place] [address] * (ABNORMAL) eGFR (09/03/2024 5:21 AM CDT) [facility] eGFR 20(L) >=60 mL/min/1. 73 m2 [...] MD LAB BLOOD ORDERABLES Aniya maguire Result [facility] Department [place] [address] * Differential, auto (09/03/2024 5:21 AM CDT) [facility] Neutrophil abs 3.79 1.50 - 6.50 K/cumm [...] [facility] One [facility] Department [place] [address] * Tacrolimus level trough (09/03/2024 5:21 AM CDT) [facility] Tacrolimus trough 17.8 ng/mL Comment: Interpretive [...] AM CDT 09/03/2024 5:31 AM CDT N[facility]ative [facility] - 09/03/2024 9:19 AM CDT Draw exactly 12 HOURS after last dose of tacrolimus was given and just BEFORE giving next dose us Britta Zhang MD LAB BLOOD ORDERABLES Aniya maguire Result [facility] One [facility] Department [place] [address] * (ABNORMAL) CBC with auto differential (09/03/2024 [...] [facility] One [facility] [place] [address] * (ABNORMAL) Comprehensive metabolic panel (09/03/2024 5:21 AM CDT) Pathologist [facility] Sodium 138 135 - 145 mmol/L Potassium, pl 4.7 3.3 - 4.9 mmol/L [facility] Chloride 101 97 - 110 mmol/L [facility] CO2 29 22 - 32 mmol/L [facility] Anion gap 8 2 - 15 mmol/L [facility] BUN 29(H) 6 - 25 mg/dL [facility] Creatinine 2.92(H) 0.60 - 1.10 mg/dL [facility] [...] Calcium 9.2 8.5 - 10.3 mg/dL [facility] Bilirubin, total 1.1 0.1 - 1.2 mg/dL [facility] Protein, pl 6.2(L) 6.5 - 8.5 g/dL [facility] Albumin 3.4(L) 3.5 - 5.0 g/dL [facility] Alk phos 233(H) 40 - 130 Units/L [facility] ALT 13 7 - 45 Units/L [facility] AST 22 10 - 45 Units/L [facility] Blood 09/03/2024 5:21 AM CDT 09/03/2024 5:31 AM CDT Britta Zhang MD LAB BLOOD ORDERABLES Aniya l Result Performing Organization Address [facility] Co de Phone Number [facility] One [facility] [place] [address] * BK virus PCR quantitative Blood (09/02/2024 12:21 PM CDT) [facility] BKV DNA result, pl Not Detected [facility] Comment: The quantifiable range of this assay is 21.5 IU/mL to 100,000,000 IU/mL (1.33 log IU/mL to 8.00 log IU/mL). Testing was performed by the JOHNNY CITIA0 BKV Quantatitive Test version 2.0 ([employer] Testing performed at [facility] Current Interpretive Data was last revised on 2021. Blood 09/02/2024 12:2 1 PM CDT 09/02/2024 12:52 PM CDT Britta Zhang MD LAB MICROBIOLOGY - GENERA L ORDERABLES Final Result Performing Organization Address [facility] Co de Phone Number [facility] One [facility] [place] [address] [facility] * HLA Donor Specific Antibody Report [...] ORDERABLES Aniya l Result Performing Organization Address [facility] Co de Phone Number [employer] * Collection Task for HLA Antibody Screen (09/02/2024 12:21 PM CDT) [facility] HLA Antibody Screen By Single Antigen Received Blood 09/02/2024 12:2 1 PM CDT 09/03/2024 10:59 AM CDT Britta Zhang MD LAB BLOOD ORDERABLES Aniya l Result Performing Organization Address [facility] Co de Phone Number [facility] [place] [address] * Cytomegalovirus (CMV) DNA PCR, quantitative Blood (09/02/2024 12:21 PM CDT) [facility] CMV DNA Not Detected [facility] Comment: Interpretive Data: The quantifiable range of this assay is 34 IUnits/mL to 10,000,000 IUnits/mL (1.53 log IUnits/mL to 7.0 log IUnits/mL). Testing was performed by the JOHNNY 6800 CMV Test ([employer] Testing performed at [facility]. Current interpretive data was last revised on 2020. Blood 09/02/2024 12:2 1 PM CDT 09/02/2024 12:52 PM CDT Result [facility] Britta Zhang MD LAB MICROBIOLOGY - GENERA L ORDERABLES Final Result Performing Organization Address [facility] Co de Phone Number ALEK [facility] [place] [address] [facility] * (ABNORMAL) eGFR (09/02/2024 12:21 PM CDT) [facility] eGFR 20(L) >=60 mL/min/1. 73 m2 [...] [facility] [place] [address] * Blood culture Blood (09/02/2024 12:21 PM CDT) Report Final Report: No growth Blood 09/02/2024 12:2 1 PM CDT 09/02/2024 1:40 PM CDT Narrative ALEK [facility] - 09/06/2024 4:00 PM CDT From [...] this culture, contact the Microbiology Laboratory at [phone]. Interpretive data was last revised on 24. us Britta Zhang MD LAB MICROBIOLOGY - GENERA L ORDERABLES Final Result [facility] [place] [address] * Blood culture Blood (09/02/2024 12:21 PM CDT) Report Final Report: No growth Blood 09/02/2024 12:2 1 PM CDT 09/02/2024 1:40 PM CDT Narrative [facility] - 09/06/2024 4:00 PM CDT Collection->Peripheral [...] this culture, contact the Microbiology Laboratory at [phone]. Interpretive data was last revised on 24. Britta Zhang MD LAB MICROBIOLOGY - GENERA L ORDERABLES Final Result [facility] Department [place] [address] * (ABNORMAL) Renal function panel (09/02/2024 12:21 PM CDT) Pathologist [facility] Sodium 137 135 [...] MD LAB BLOOD ORDERABLES Aniya l [facility] [place] [address] * (ABNORMAL) eGFR (09/02/2024 5:16 AM CDT) [facility] eGFR 19(L) >=60 mL/min/1. 73 m2 Comment: [...] Valiente MD LAB BLOOD ORDERABLES Final Result [facility] [place] [address] * Differential, auto (09/02/2024 5:16 AM CDT) [facility] Neutrophil abs 3.97 1.50 - 6.50 K/cumm [...] revised on 2017. Lymphocyte pct 20.2 % [facility] [...] [facility] Department of Laboratories [place], [place] [id number] * Tacrolimus level trough (09/02/2024 5:16 AM CDT) [facility] Tacrolimus trough 17.0 ng/mL Comment: Interpretive [...] [facility] [place] [address] * (ABNORMAL) CBC with auto differential (09/02/2024 [...] MD LAB BLOOD ORDERABLES Final Result ALEK [facility] [place] [address] * (ABNORMAL) Comprehensive metabolic panel (09/02/2024 5:16 AM CDT) Sodium 137 135 - 145 mmol/L Potassium, pl 4.1 3.3 - 4.9 mmol/L [facility] Chloride 98 97 - 110 mmol/L [facility] CO2 32 22 - 32 mmol/L [facility] Anion gap 7 2 - 15 mmol/L [facility] BUN 29(H) 6 - 25 mg/dL [facility] Creatinine 3.05(H) 0.60 - 1.10 mg/dL [facility] Glucose 185 70 - 199 mg/dL [facility] [...] 2022. Calcium 9.0 8.5 - 10.3 mg/dL [facility] Bilirubin, total 1.0 0.1 - 1.2 mg/dL [facility] Protein, pl 6.3(L) 6.5 - 8.5 g/dL [facility] Albumin 3.8 3.5 - 5.0 g/dL [facility] Alk phos 223(H) 40 - 130 Units/L [facility] ALT 11 7 - 45 Units/L [facility] AST 24 10 - 45 Units/L [facility] Blood 09/02/2024 5:16 AM CDT 09/02/2024 5:32 AM CDT us Bailee Valiente MD LAB BLOOD ORDERABLES Final Result Performing Organization Address [facility] de Phone Number ALEK [facility] [place] [address] * Troponin I high-sensitivity 2-hour (09/01/2024 2:58 AM CDT) Trop I hs 5 <=17 ng/L Comment: Interpretive Data For further hscTnI resources including the diagnostic algorithm and an aid in interpretation, copy and paste this link: https://bjhlab.testcatalog.org/show/hsTrop-1 Current Interpretive Data last revised 2019. Trop I hs delta 0 ng/L [facility] Trop I hs interp Insignificant [facility] Blood 09/01/2024 2:58 AM CDT 09/01/2024 3:13 AM CDT us Diana Cassidy MD LAB BLOOD ORDERABLES Fi nal Result Performing Organization Address [facility] de Phone Number ALEK [facility] Department [place] [address] * ECG 12-LEAD (09/01/2024 2:53 AM CDT) Narrative [facility] - 09/01/2024 2:53 AM CDT Elisha Avila MD 09/01/2024 3:24 AM ECG 12 lead Date/Time: 09/01/2024 2:53 AM Performed by: Elisha Avila MD Authorized by: Diana Cassidy MD us Diana Cassidy MD ECG ORDERABLES Final R esult Performing Organization Address [facility] Co de Phone Number [facility] * XR Chest PA Lateral 2 [...] Blood culture Blood (09/01/2024 2:18 AM CDT) [facility] Direct Specimen Exam Molecular Analysis: Staphylococcus epidermidis (methicillin-resis tant) detected by johnny [facility]Plex BCID-GP panel. Single positive culture may represent contamination. This test does not exclude the possibility of a mixed bacterial infection. Notification of: Staphylococcus epidermidis (methicillin-resis tant) called to and read back by: Flower Moser MD ([phone]) on 09/02/2024 03:01:57 by: Radu Helm MT Direct Specimen Exam Stain: Gram Positive Cocci in clusters Time to culture positivity (anaerobic media): 21.4 hours Notification of: Gram Positive Cocci in clusters called to and read back by: Flower Moser MD ([phone]) on 09/02/2024 01:01:22 by: Radu Helm MT [...] susceptibility testing will be performed. (.) ALEK [facility] Organism STAPHYLOCOCCUS EPIDERMIDIS [facility] Blood 09/01/2024 2:18 AM CDT 09/01/2024 [...] this culture, contact the Microbiology Laboratory at [phone]. Interpretive data was last revised on 24. Diana Cassidy MD LAB MICROBIOLOGY - [facility] ORDERABLES Final Result ALEK [facility] Department [place] [address] * US Renal Transplant W Dopplers (09/01/2024 [...] Soto Mena M.D., Ph.D Diana Cassidy MD [facility] PROCEDURES Final Result * (ABNORMAL) Respiratory pathogen panel Nasopharyngeal (09/01/2024 12:58 AM CDT) Pathologist [facility] Influenza A RNA [...] assay has FDA clearance for testing of FURNACE FEEDER swabs. The performance of additional specimen types has been assessed by the performing laboratory. The performance characteristics of this assay have been determined by [facility] Molecular Infectious Disease Laboratory. Current interpretive data was last revised on 21. Diana Cassidy MD LAB MICROBIOLOGY - [facility] ORDERABLES Final Result [facility] [place] [address] * Troponin I high-sensitivity series (baseline, 2hr, 4hr, 6hr) (09/01/2024 12:57 AM CDT) [facility] Trop I hs 5 <=17 ng/L Comment: Interpretive Data For further hscTnI resources including the diagnostic algorithm and an aid in interpretation, copy and paste this link: https://bjhlab.testcatalog.org/show/hsTrop-1 Current Interpretive Data last revised 2019. Blood 09/01/2024 12:5 7 AM CDT 09/01/2024 1:20 AM CDT Diana Cassidy MD LAB BLOOD ORDERABLES Fi nal Result Performing Organization Address [facility] Co de Phone Number [facility] [place] [address] * Sepsis Lactate w/ Reflex (09/01/2024 12:57 AM CDT) [facility] Sepsis Lactate 1.8 0.7 - 2.0 mmol/L Blood 09/01/2024 12:5 7 AM CDT 09/01/2024 1:14 AM CDT Diana Cassidy MD LAB BLOOD ORDERABLES Fi nal Result Performing Organization Address City/[facility] Co de Phone Number [facility] [place] [address] * (ABNORMAL) eGFR (09/01/2024 12:57 AM CDT) [facility] eGFR 26(L) >=60 mL/min/1. 73 m2 [...] [facility] [place] [address] * Differential, auto (09/01/2024 12:57 AM CDT) Neutrophil abs 4.42 1.50 - 6.50 K/cumm Imm gran abs 0.03 0.00 - 0.10 K/cumm [facility] Lymphocyte abs 1.17 0.80 - 3.30 K/cumm [facility] Monocyte abs 0.38 0.20 - 0.80 K/cumm [facility] Eosinophil abs 0.10 0.00 - 0.50 K/cumm [...] on 2017. Lymphocyte pct 19.1 % ALEK [facility] Comment: Interpretive Data Percent cell count reference ranges are not reported, since discordance with absolute values may lead to misinterpretation of CBC data. Current Interpretive Data was last revised on 2017. Monocyte pct 6.2 % ALEK [facility] Comment: Interpretive Data Percent cell count reference ranges are not reported, since discordance with absolute values may lead to misinterpretation of CBC data. Current Interpretive Data was last revised on 2017. Eosinophil pct 1.6 % ALEK [facility] Comment: Interpretive Data Percent cell count reference ranges are not reported, since discordance with absolute values may lead to misinterpretation of CBC data. Current Interpretive Data was last revised on 2017. Basophil pct 0.3 % ALEK [facility] Comment: Interpretive Data Percent cell count reference ranges are not reported, since discordance with absolute values may lead to misinterpretation of CBC data. Current Interpretive Data was last revised on 2017. Blood 09/01/2024 12:5 7 AM CDT 09/01/2024 1:20 AM CDT us Diana Cassidy MD LAB BLOOD ORDERABLES Fi nal Result [facility] One [facility] [place] [address] * (ABNORMAL) Urinalysis reflex to microscopic and culture Urine, bladder (09/01/2024 12:57 AM CDT) Color, ur Yellow Yellow Clarity, ur Clear Clear [facility] Specific gravity, ur 1.020 1.003 - 1.030 [facility] pH, urine 5.5 [facility] Comment: Interpretive Data U rine pH is affected by diet, medications, systemic acid-base disturbances, and renal tubular function. pH may affect urinary stone formation. For example, urine pH below 6.0 may help reduce the tendency for calcium phosphate stones and pH greater than 6.0 may reduce the tendency for uric acid stone formation. Source: [facility] amaysim Current Interpretive Data was last revised on [...] CDT Diana Cassidy MD LAB MICROBIOLOGY - [facility] ORDERABLES Final Result [facility] [place] [address] * (ABNORMAL) CBC with auto differential (09/01/2024 [...] ORDERABLES Fi nal Result Performing Organization Address [facility] de Phone Number [facility] [place] [address] * Tacrolimus level random (09/01/2024 12:57 AM [...] ORDERABLES Fi nal Result Performing Organization Address [facility] de Phone Number ALEK [facility] [place] [address] * Blood culture Blood (09/01/2024 12:57 AM CDT) Report Final Report: No growth Blood 09/01/2024 12:5 7 AM CDT 09/01/2024 1:35 AM CDT Narrative ALEK [facility] - 09/05/2024 7:00 AM CDT Collection->Peripheral [...] this culture, contact the Microbiology Laboratory at [phone]. Interpretive data was last revised on 24. Diana Cassidy MD LAB MICROBIOLOGY - GENE RAL ORDERABLES Final Result Performing Organization Address City/[facility] Co de Phone Number [facility] [place] [address] * Phosphorus (09/01/2024 12:57 AM CDT) Phosphorus, pl 2.9 2.3 - 4.5 mg/dL Blood 09/01/2024 12:5 7 AM CDT 09/01/2024 1:20 AM CDT Diana Cassidy MD LAB BLOOD ORDERABLES Fi nal Result Performing Organization Address [facility] de Phone Number [facility] [place] [address] * Magnesium (09/01/2024 12:57 AM CDT) Magnesium 1.5 1.4 - 2.5 mg/dL Blood 09/01/2024 12:5 7 AM CDT 09/01/2024 1:20 AM CDT Diana Cassidy MD LAB BLOOD ORDERABLES Fi nal Result Performing Organization Address [facility] Co de Phone Number [facility] [place] [address] * Lipase (09/01/2024 12:57 AM CDT) Pathologist [facility] Lipase 19 10 - 99 Units/L Blood 09/01/2024 12:5 7 AM CDT 09/01/2024 1:20 AM CDT Diana Cassidy MD LAB BLOOD ORDERABLES Fi nal Result [facility] [place] [address] * (ABNORMAL) Comprehensive metabolic panel (09/01/2024 12:57 AM CDT) Pathologist [facility] Sodium 138 135 - 145 mmol/L Potassium, [...] 2022. Calcium 8.7 8.5 - 10.3 mg/dL [facility] Bilirubin, total 1.1 0.1 - 1.2 mg/dL [facility] Protein, pl 7.1 6.5 - 8.5 g/dL [facility] Albumin 3.9 3.5 - 5.0 g/dL [facility] Alk phos 257(H) 40 - 130 Units/L [facility] ALT 14 7 - 45 Units/L [facility] AST 37 10 - 45 Units/L [facility] Comment:Hemolyzed; result ma y be falsely elevated Blood 09/01/2024 12:5 7 AM CDT 09/01/2024 1:20 AM CDT us Diana Cassidy MD LAB BLOOD ORDERABLES nal Result [facility] [place] [address] * Surgical pathology (08/02/2024 9:18 AM CDT) Tissue (Miscellaneous) 08/02/2024 9:18 AM CDT 08/02/2024 9:18 AM CDT Narrative [facility] PATHOLOGY [facility] - 08/14/2024 2:01 PM CDT EPIC results best viewed via link to PDF [facility] Pathology Consult Service [address], [place], [place] [id number] Note to Patients: This report may contain [...] SURGICAL PATHOLOGY REPORT * Consult Report * [facility] is providing an additional review of previously collected tissue. FINAL Patient Name: MISHA BROWNE Address: [address] [place] [id number] Gender: F : 1980 (Age: 43) [facility] #: [id number] Patient Type: [facility] Location: UNKNOWN Taken: 08/02/2024 Received: 08/02/2024 Accessioned: 08/05/2024 Reported: 08/14/2024 Physician(s): Beatriz Lee M.D. [facility] Department of Pathology [address] [place] [address] [place] [address] P: [phone] F: [phone] Diagnosis: Consult material received from [place], [place] (OSC: [id number]; 11/17/2023) A. 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 Course was complicated by biopsy [...] show moderate inflammatory infiltrate. There is patchy vykz-gi-bwvitesy tubulitis. Small arteries and arterioles show mild [...] Received for review are ten slides labeled [id number], and nine slides labeled [id number], accompanied by a corresponding pathology report. The material originates from [facility], [place], [place]. Selected slide(s) may be digitally scanned for [...] occasional mononuclear cells Arteriolar hyalinosis (ah): ah1 Wfrd-tf-xhjtgysp PAS-positive hyaline thickening in at least one [...] the Department of Pathology and Immunology at [facility], [address] [place] [address] CLIA # [id number] The performance characteristics of the testing cited in this report (if any) were determined by the [facility] Department of Pathology and Immunology [facility], as part of an ongoing quality assurance monitor program and in compliance with federally mandated [...] and the performance characteristics determined by the [facility], [facility] Department of Pathology and Immunology. It has not been cleared or approved by the U.S. Food and Drug Administration. Any test designated as LDT was developed and its performance characteristics determined by [facility]. It has not been cleared or approved by the FDA. This test is used for clinical purposes and should not be regarded as investigational or for research. Report images and/or scanned reports, if included, only viewable in PDF version of report. us Beatriz Lee MD LAB PATHOLOGY ORDERA BLES Final Result Performing Organization Address City/[facility]/ZIP Co de Phone Number [facility] [address] [facility] [address] [place] [address] * Hepatitis panel, acute (04/16/2020 6:35 AM ROLL CLEANER) Hep A IgM Nonreactive Nonreactive [facility] Comment: Interpretive Data: If Hep A IgM Ab is reported as Equivocal, a new sample should be drawn in two weeks for testing. Current interpretive data was last revised on 19. Hep B core IgM Nonreactive Nonreactive [facility] Comment: Interpretive Data If HepB Core IgM Ab is reported as Equivocal, a new sample should be drawn in two weeks for testing. Current interpretive data was last revised on 19. Hep C Ab Nonreactive Nonreactive [facility] Comment:Antibodies to HCV no t detected. Does NOT exclude the possibility of recent exposure to HCV. HepBsAg Nonreactive Nonreactive [facility] Blood specimen (specimen) 04/16/2020 6:35 AM ROLL CLEANER 04/16/2020 7:34 AM ROLL CLEANER us Jacob Gates MD LAB MICROBIOLOGY - GENER AL ORDERABLES Final Result Performing Organization Address City/[facility]/ZIP Co de Phone Number [facility] One [facility] [place] [address] from Last 3 Months or Most Recently Relevant to Health Maintenance Insurance [employer] OPEN ACCESS [employer] [facility] PL[facility] [employer] OPEN ACCESS [employer] [place] ID[place] Advance Directives For more information, please contact: [phone] * Full Code (Latest Code Status on [...] 6:15 AM 07/25/2019 11:51 PM Care Teams Psychiatric Aides Teacher Relationship Specialty Start Date End Date Lyly Fiore NP [address] [place] [address] PCP - General Nurse Practitioner 05/29/24 Beatriz Lee MD [address] [place] [address] Referring Physician Gastroenterology 07/25/19 Taylor Kitchen, hat blockerHealth Information Technician 05/29/24
--- OUTSIDE RECORDS SUMMARY | 2024-10-26 00:30 | XMS_ITS | Encounter Summary ---
Author Organization [facility] Address [address] [place] [address] Care Team Providers Care In Home Nanny Name Role Phone Chelsyolive Lyly ELISA Primary Care Provider [phone] Encounter Details Date Type Department Care Team [...] time in the past [address] [facility], were you homeless or living in a skilled nursing (including now)? No 02/20/2024 Comments No Sex and Gender Information Value Date Recorded Sex Assigned at Female 04/05/2024 4:26 PM OFFSET PRESS OPERATOR HELPER Legal Sex Female 9:15 PM OFFSET PRESS OPERATOR HELPER Gender Identity Not on file [...] 10:38 PM Wilmar Salomon RN Active * [place] Suicide Severity Rating Scale (Screener/Recent Self-Report) Question [...] Date Author Status No 02/20/2024 4:08 AM OFFSET PRESS OPERATOR HELPER Kimmy Hayes RN Active documented in this encounter Plan of Treatment Not on file documented as of this encounter Visit Diagnoses Not on filedocumented in this encounter Care Teams In Home Nanny Relationship Specialty Start Date End Date Lyly Fiore NP [address] [place] [address] PCP - General NURSE PRACTITIONER 04/14/24 documented as of this encounter
--- OUTSIDE RECORDS SUMMARY | 2024-10-26 00:30 | XMS_ITS | Encounter Summary ---
Author Organization [facility] Address [address] [place] [address] Care Team Providers Care Litigation Claim Representative Name Role Phone Hermes Ramirez MD Primary Care Provider Reason for Visit * Reason Onset Date Comments Refill Request 06/01/2023 Encounter Details Date Type Department Care Team ([facility] st Contact Info) Description 06/01/2023 Refill [place] [facility] [address] [address] Allen Manzano PAVasquez [address] [facility] [address] [place] [address] Refill Request Social History Tobacco [...] Currently or in the past 3 m [facility], have you worried your food would [...] on file Legal Sex Female 1:03 PM PRESCHOOL TEACHER'S 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
--- OUTSIDE RECORDS SUMMARY | 2024-10-26 00:30 | XMS_ITS | Encounter Summary ---
Author Organization [facility] Address [address] [facility] [address] [place] [address] Care Team Providers Care Twine Reeling Machine Operator Name Role Phone Hermes Ramirez MD Primary Care Provider [phone] Reason for Visit * Reason Onset Date Comments Refill Request 04/01/2021 Encounter Details Date Type Department Care Team (Late st Contact Info) Description 04/01/2021 Refill [facility] [address] [facility] [address] [place] [address] Lyly Mccollum MD [address] [facility] 7TH [place] [address] Refill Request Social History Tobacco [...] on file Legal Sex Female 1:03 PM INDEX EDITOR Gender Identity Not on file Sexual Orientation Not on file COVID-19 Exposure Response Date Recorded In the last month, have you been in contact with someone who was confirmed or suspected to have Coronavirus / COVID-19? No / Unsure 03/02/2021 2:55 PM INDEX EDITOR documented as of this encounter Plan of Treatment Not on file documented as of this encounter Visit Diagnoses Not on filedocumented in this encounter Additional Health Concerns Assessment Noted Time PHQ-9 Depression Total Score: 9 03/02/20 3:09 PM INDEX EDITOR PHQ-2 Depression Total Score: 0 03/10/20 11:51 AM INDEX EDITOR documented as of this encounter Care Teams Twine Reeling Machine Operator Relationship Specialty Start Date End Date Hermes Ramirez MD [address] [place] [address] PCP - General 05/28/20 documented as of this encounter
--- OUTSIDE RECORDS SUMMARY | 2024-10-26 00:30 | XMS_ITS | Encounter Summary ---
Author Organization [facility] Address [address] [place] [address] Care Team Providers Care Cms Expert Name Role Phone Ashley ZUNIGA MD, Hermes Perez Primary Care Provid er Lyly Fiore NP Primary Care Provider [phone] Encounter Details Date Type Department Care Team (Late st Contact Info) Description 08/22/2018 Abstract COUNTS INCLUDE 234 BEDS AT THE [facility] [address] [place] [id number] Social History Tobacco Use Types Packs/Day Years Used Date Smoking Tobacco: Every Day Cigarettes 0.5 15 Smokeless Tobacco: Never Alcohol Use Standard Drinks/Week Comments No 0 (1 standard drink = 0.6 oz pur e alcohol) Comments No Sex and Gender Information Value Date Recorded Sex Assigned at Female 04/05/2024 4:26 PM SANITATION ENGINEER Legal Sex Female 9:15 PM SANITATION ENGINEER Gender Identity Not on file Sexual Orientation Not on file documented as of this encounter Plan of Treatment Not on file documented as of this encounter Visit Diagnoses Not on filedocumented in this encounter Additional Health Concerns Infection Onset Date Last Indicated Resolved Time COVID-19 Rule Out 03/30/2020 03/30/2020 03/30/2020 9:29 PM SANITATION ENGINEER COVID-19 Rule Out 03/30/2020 03/30/2020 03/31/2020 12:28 PM SANITATION ENGINEER COVID-19 Rule Out 02/16/2024 02/16/2024 02/16/2024 9:16 PM SANITATION ENGINEER Rhinovirus 02/16/2024 02/16/2024 02/26/2024 12:3 2 AM SANITATION ENGINEER COVID-19 Rule Out 08/26/2024 08/26/2024 08/26/2024 11:07 PM CDT Respiratory Rule Out 08/26/2024 08/26/2024 025 11:06 PM CDT documented as of this encounter Care Teams Cms Expert Relationship Specialty Start Date End Date Hermes Ramirez III, MD [address] [facility] [address] [place] [address] PCP - General FAMILY PRACTICE 06/20/17 04/13/24 Lyly Fiore NP [address] [place] [address] PCP - General NURSE PRACTITIONER 04/14/24 documented as of this encounter
--- OUTSIDE RECORDS SUMMARY | 2024-10-26 00:30 | XMS_ITS | Encounter Summary ---
Author Organization [facility] Address [address] [place] [address] Care Team Providers Care Woodworking Bench Carpenter Name Role Phone Hermes Ramirez MD Primary Care Provider Reason for Visit * Reason Onset Date Comments Refill Request 01/07/2021 Encounter Details Date Type Department Care Team (Late st Contact Info) Description 01/07/2021 Refill [facility] [address] [facility] [address] [place], [place] [phone] Refill Request Social History Tobacco Use Types [...] on file Legal Sex Female 1:03 PM TRIM OPERATOR Gender Identity Not on file Sexual [...] documented as of this encounter Care Teams Woodworking Bench Carpenter Relationship Specialty Start Date End Date Hermes Ramirez MD [address] [place] [address] PCP - General 05/28/20 documented as of this encounter
--- OUTSIDE RECORDS SUMMARY | 2024-10-26 00:30 | XMS_ITS | Encounter Summary ---
Author Organization [facility] Address [address] [facility] [place] [address] Care Team Providers Care Fibre Composite Technician Name Role Phone Hermes Ramirez MD Primary Care Provider Reason for Visit * Reason Onset Date Comments Refill Request 09/06/2020 Encounter Details Date Type Department Care Team (Late st Contact Info) Description 09/06/2020 Refill [facility] [address] [id number] Allen Manzano PAVasquez [address] [facility] [address] [place] [id number] Refill Request Social History Tobacco Use Types Packs/Day Years Used Date Smoking Tobacco: Former Cigarettes 0.5 20 0 03/20/2000 - 03/20/2020 Smokeless Tobacco: Never Social Connections Answer Date Recorded Conversations with friends/family/neighbors per week Not on file 05/25/2020 Comments No Sex and Gender Information Value Date Recorded Sex Assigned at Not on file Legal Sex Female 1:03 PM RACECAR DRIVER Gender Identity Not on file Sexual Orientation Not on file documented as of this encounter Plan of Treatment Not on file documented as of this encounter Visit Diagnoses Not on filedocumented in this encounter Additional Health Concerns Assessment Noted Time PHQ-2 Depression Total Score: 0 07/07/19 21 9:51 AM CDT documented as of this encounter Care Teams Fibre Composite Technician Relationship Specialty Start Date End Date Hermes Ramirez MD [address] [place] [address] PCP - General 05/28/20 documented as of this encounter
--- OUTSIDE RECORDS SUMMARY | 2024-10-26 00:30 | XMS_ITS | Encounter Summary ---
Author Organization [facility] Address [address] [place] [address] Care Team Providers Care Banbury Operator Name Role Phone Beatriz Lee MD Unavailable [phone]- [phone] Lyly Fiore CORPORATE LEGAL SECRETARY Primary Care Provider Taylor Kitchen RN Unavailable Unav ailable Reason for Visit * Reason Onset Date Comments PMC Preprocedure 09/19/2024 Encounter Details Date Type Department Care Team (Late st Contact Info) Description 09/19/2024 Telephone [facility] [address] [facility] [address] [place], [place] [phone] Igor Graham MD [address] [place] [address] PMC Preprocedure Social History Tobacco Use Types Packs/Day Years Used Date Smoking Tobacco: Every Day Cigarettes Smokeless Tobacco: Never Comments:1 cigarette day Alcohol Use Standard Drinks/Week Comments Never 0 (1 standard drink = 0.6 oz pur e alcohol) rare [facility] Utilities Answer Date Recorded In the past 12 months has [employer], gas, oil, or water company threatened to [...] often do you attend chur ch or yarsanism services? Never 09/03/2024 Do you belong to any clubs o r organizations such as roman catholic groups, unions, fraternal or athletic groups, or [...] in a care home (including now)? No 09/03/2024 Personal Safety Answer Date Recorded Have you ever been in or are you currently in a harmful physical or emotional relationship or is someone making you feel afraid or unsafe? Denies 09/02/2024 Comments No Sex and Gender Information Value Date Recorded Sex Assigned at Not on file Legal Sex Female 10:10 PM SECURITY TESTER Gender Identity Not on file Sexual [...] on filedocumented in this encounter Care Teams Banbury Operator Relationship Specialty Start Date End Date Lyly Fiore NP [address] [place] [address] PCP - General Nurse Practitioner 05/29/24 Beatriz Lee MD [address] [place] [address] Referring Physician Gastroenterology 07/25/19 Taylor Kitchen, ham pumperAssociate Buyer 05/29/24 documented as of this encounter
--- OUTSIDE RECORDS SUMMARY | 2024-10-26 00:30 | XMS_ITS | Encounter Summary ---
Author Organization [facility] Address [address] [place] [address] Care Team Providers Care Road Manager Name Role Phone Hermes Ramirez MD Primary Care Provider Reason for Visit * Reason Onset Date Comments Refill Request 04/08/2023 Encounter Details Date Type Department Care Team (Late st Contact Info) Description 04/08/2023 Refill [facility] [address] [phone] Tico Salmon NP [address] [place] [address] Refill Request Social History Tobacco [...] Currently or in the past 3 m [facility], have you worried your food would [...] on file Legal Sex Female 1:03 PM TUCK POINTER HELPER Gender Identity Not on file Sexual [...] documented as of this encounter Care Teams Road Manager Relationship Specialty Start Date End Date Hermes Ramirez MD [address] [place] [address] PCP - General 05/28/20 documented as of this encounter
--- OUTSIDE RECORDS SUMMARY | 2024-10-26 00:30 | XMS_ITS ---
Author Organization [facility] Address [address] [place] [address] Care Team Providers Care Service Unit Operator Name Role Phone Beatriz Lee MD Unavailable [phone]- [phone] Lyly Fiore NP Primary Care Provider Taylor Kitchen RN Unavailable Unav ailable Transplant Episode Liver Recipient [facility] ([place], [place]) - [facility] Transplanted on 05/09/2020 Marked as Active Follow-up on 07/01/2024 Reason: In Transition Process Liver CoordinatorTaylor Kitchen RN Phone: N/A Fax: N/A Email: N/A Transplanted Elsewhere: [facility] ([place], [place]) - [place] Coordinator: Phone: Fax: [place] 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
--- OUTSIDE RECORDS SUMMARY | 2024-10-26 00:30 | XMS_ITS | Encounter Summary ---
Author Organization [facility] Address [address] [facility] [place] [address] Care Team Providers Care Bingo Clerk Name Role Phone Hermes Ramirez MD Primary Care Provider Reason for Visit * Reason Onset Date Comments Refill Request 04/08/2023 Encounter Details Date Type Department Care Team (Late st Contact Info) Description 04/08/2023 Refill [facility] [address] [address] Marion Pedroza MD [address] [place] [address] Refill Request Social History Tobacco [...] Currently or in the past 3 m [facility], have you worried your food [...] on file Legal Sex Female 1:03 PM MAGAZINE HAND Gender Identity Not on file Sexual [...] documented as of this encounter Care Teams Bingo Clerk Relationship Specialty Start Date End Date Hermes Ramirez MD [address] [place] [address] PCP - General 05/28/20 documented as of this encounter
--- OUTSIDE RECORDS SUMMARY | 2024-10-26 00:31 | XMS_ITS | Encounter Summary ---
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 07/26/2024 4:32 PM CDT [facility] Reference 07/26/2024 4:32 PM CDT [facility] Tissue TISSUE SPECIMEN / Unknown 11/17/2023 07/24/2024 4:31 PM CDT [facility] Transplant-Liver LAB PATHOLOGY CYTOLOGY ORDERABLE Final Result Performing Organization Address [facility] Co de Phone Number [facility] [address] [place] [address] * AP Block Slide Request: (11/17/2023) AP Request The following 10 slides have been sent to [facility]. 07/26/2024 4:34 PM CDT [facility] Reference 07/26/2024 4:34 PM CDT [facility] Tissue TISSUE SPECIMEN / Unknown 11/17/2023 07/24/2024 4:31 PM CDT [facility] Transplant-Liver LAB PATHOLOGY CYTOLOGY ORDERABLE Final Result Performing Organization Address [facility] Co de Phone Number [facility] [address] [place] [address] documented in this encounter Visit Diagnoses Not on filedocumented in this encounter Additional Health Concerns Assessment Noted Time PHQ-9 Depression Total Score: 6 12/08/19 22 3:08 PM CDT PHQ-2 Depression Total Score: 0 06/23/19 23 10:20 AM CDT documented as of this encounter Care Teams Fun House Operator Relationship Specialty Start Date End Date Hermes Ramirez MD [address] [place] [address] PCP - General 05/28/20 documented as of this encounter
--- OUTSIDE RECORDS SUMMARY | 2024-10-26 00:31 | XMS_ITS | Encounter Summary ---
Author Organization [facility] Address [address] [place] [address] Care Team Providers Care High Pressure Cleaner Name Role Phone Hermes Ramirez MD Primary Care Provider Reason for Visit * Reason Comments Refill Request Encounter Details Date Type Department Care Team (Late st Contact Info) Description 12/06/2023 Refill [facility] [address] [place], [place] [phone] Levi Sheriff, ELISA [address] [place] [address] Refill Request Social History Tobacco Use Types [...] or in the past 3 m [facility], have you worried your food would run out before you had money to buy more? No 2023 In the past 12 months, have you run out of food or been unable to get more? 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
--- OUTSIDE RECORDS SUMMARY | 2024-10-26 00:31 | XMS_ITS | Encounter Summary ---
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
--- OUTSIDE RECORDS SUMMARY | 2024-10-26 00:31 | XMS_ITS | Clinical Summary ---
Author Organization [facility] Address [address] [place] [address] Care Team Providers Care Music Manager Name Role Phone Hermes Ramirez MD [...] Dates Next Due Tetanus-Diphth Toxoids Injection 10/18/2021 Nxjwrpj-Zcnysgcpbr-Lugdxbvgw Pertussis (Tdap) Injection 10/18/2021,05/10/2017,05/25/2012 hepatitis A vaccine [...] on file Legal Sex Female 1:03 PM SEE WHEELER Gender Identity Not on file Sexual [...] topic Medical Devices Implanted Type Area Automobile Assembler Device Identifier Shelf Expiration Date Model / Serial / Lot Liver - [id number] Implanted:Qty: 1 on 05/09/2020 by Nirav Carpio MD at [facility] N/A: Abdomen ORGAN PROCUREMENT ORGANIZATION 05/10/2020 ORGAN - LIVER / [id number] / LOT NA Left Kidney - [id number] Implanted:Qty: 1 on 05/09/2020 by Nirav Carpio MD at [facility] N/A: Abdomen ORGAN PROCUREMENT ORGANIZATION 05/10/2020 ORGAN - LEFT KIDNEY / [id number] / LOT NA Stent Ureteral L12 Cm L100 Cm Od6 Fr .028 In Closed End Design One Step Insertion Radiopaque Filler Double-J Silicone Disposable - [id number] Implanted:Qty: 1 on 05/09/2020 by Nirav Carpio MD at [facility] N/A: Abdomen OLYMPUS - GYRUS ACMI WAGNER 02/11/2025 [id number] / / [id number] Stent Ureteral L12 Cm L100 Cm Od6 Fr .028 In Closed End Design One Step Insertion Radiopaque Filler Double-J Silicone Disposable - [id number] Implanted:Qty: 1 on 05/09/2020 by Nirav Carpio MD at [facility] N/A: Abdomen OLYMPUS - GYRUS ACMI WAGNER 02/11/2025 [id number] / / [id number] Device Closure L70 Cm .038 In Insertion Sheath Arteriotomy System Development Manager Guidewire J Central Office Repairer Vascular Angio-Seal Evolution ([id number]) - [id number] Implanted:Qty: 1 on 07/20/2020 at [facility] TERUMO MEDICAL WAGNER 03/19/2021 [id number] / / [id number] Procedures Procedure Name Priority Date/Time Associated Diagnosis Comments HEPATITIS C VIRUS ANTIBODY Routine 11/07/2023 5:43 AM CDT HIV RNA QUANTITATION (HIV VIRAL LOAD) Routine 06/17/2020 9:55 AM CDT Other assistant terminal manager (current) drug therapy Encounter for aftercare following liver transplant (CMS-HCC) Status post kidney transplant PATHOLOGY GYNE CYTOLOGY 04/28/2020 12:00 AM SEE WHEELER from Last 3 Months or Most Recently Relevant to Health Maintenance Results * Hepatitis C Virus Antibody (11/07/2023 5:43 AM CDT) Pathologist [facility] HEP C AB Not Detected Not Detected [facility] Comment: Antibodies to HCV not detected. This does not exclude the possibility of exposure to HCV. 11/07/2023 5:43 AM CDT 11/07/2023 6:16 AM CDT Phillip Mustafa MD LAB BLOOD ORDERABLES Final Re sult [address] [address] * HIV RNA Quantitation (06/17/2020 9:55 AM CDT) [facility] HIV-1 RNA QUANTITATION HIV RNA Quantitation [facility] HIV-1 RNA QUANTITATION Less than 40 Less than 40 Copies/m L [facility] HIV LOG RESULT Less than 1.6 R [facility] Comment: Methodology: Quantitation of HIV RNA [...] PA-C LAB BLOOD MICRO Final Resu lt [address] [address] * Pathology Gyne Cytology: (04/28/2020 12:00 AM SEE WHEELER) [facility] AP [facility] COPA TH CONVERSION PATHOLOGY RESULT Department of Pathology [facility] [address] [facility] [place] [address] Final *Clinical Data Electronic version* This report may not match the original report format REPORT DATE: 05/04/2020 FINAL CYTOLOGIC DIAGNOSIS GYNE THIN PREP + HPV HIGH RISK Adequacy: Satisfactory for evaluation, but limited by no transformation zone. General Category: Negative for intraepithelial lesion or malignancy. Description: Fungal organisms morphologically consistent with Lydia. HPV mRNA E6/E7 NOT DETECTED Performed using the APTIMA HPV Assay ([employer]) This assay detects E6/E7 viral messenger RNA (mRNA) from 14 high risk HPV types (16, 18, 31, 33, 35, 39, 45, 51, 52, 56, 58, 59, 66, 68) [Reference Range = NOT DETECTED] TEST PERFORMED AT: [facility], [address] [place] [address]. Riddler Operator: David Kc MD. IA # [id number]. Attending Pathologist: Destiny Obregon MD, PhD * Electronically signed Review by Operational Test Mechanic: Akil De La Cruz * Electronically signed [...] and the performance characteristics determined by [facility] Department of Pathology. These tests have not been cleared or approved for commercial use by the U.S. Food and Drug Administration. This test is used for clinical purposes. It should not be regarded as investigational or for research. The FDA has determined that FDA review is not required for such assays. This is for [id number]. CLINICAL INFORMATION Date of Last Menstrual Period: UNKNOWN Other Clinical Conditions: LSIL or higher, bx/pap HPV, Hx/Dx/Rx Intradepartmental Consultation Pathologist: ICD-CM(s): A; Z12.4 Z11.51 CPT(s): A; 21553, [address]15 [facility] COPATH CONVERSION AP Final Diagnosis GYNE THIN PREP + HPV HIGH RISK Adequacy: Satisfactory for evaluation, but limited by no transformation zone. General Category: Negative for intraepithelial lesion or malignancy. Description: Fungal organisms morphologically consistent with Lydia. HPV mRNA E6/E7 NOT DETECTED Performed using the APTIMA HPV Assay ([employer]) This assay detects E6/E7 viral messenger RNA (mRNA) from 14 high risk HPV types (16, 18, 31, 33, 35, 39, 45, 51, 52, 56, 58, 59, 66, 68) [Reference Range = NOT DETECTED] TEST PERFORMED AT: [facility], [address] [place] [address]. Riddler Operator: David Kc MD. CLIA # [id number]. [facility] COPATH CONVERSION AP Notes This case was reviewed by a pathologist for QC purposes only. [facility] COPATH CONVERSION AP ICD-10 Code Z12.4 Z11.51 [facility] COPATH CONVERSION HPV HR SCREEN SEE COMMENT [facility] COPATH CONVERSION 04/28/2020 04/29/2020 7:2 0 AM SEE WHEELER Dulce Austin MD PATHOLOGY Edited Result - Final [facility] COPATH CONVERSION from Last 3 Months or Most Recently Relevant to Health Maintenance Advance Directives Documents on File Type Date Recorded Patient Flatbed Company Driver Expl anation Advance Directives 07/18/2020 9:50 AM [...] 1:35 AM 12/14/2020 1:59 PM Care Teams Music Manager Relationship Specialty Start Date End Date Hermes Ramirez MD [address] [place] [address] PCP - General 05/28/20
[2024-10-26 01:01] VITALS: BP 158/78; PULSE 80; RESP 18; O2SAT 100
== END 2024-10-26 01:01 | disposition home or self-care (01) ==
PROVIDERS: Emergency Provider Emergency Medicine
DX: M54.50 Low back pain, unspecified (principal)
CPT/HCPCS: 99281

== ENCOUNTER 2025-01-07 11:18 | Emergency (ER) | payer OTHER, SELFPAY ==
[2025-01-07 11:23] VITALS: BP 168/109; PULSE 122; RESP 20; TEMP 36.8; O2SAT 100
--- NOTE | 2025-01-07 11:27 | ECG_ITS ---
Test Date: 2025-01-07 11:32:21 Measurements Intervals [place] Rate: 132 P: 19 W[place]: 158 QRS: -34 QRSD: 79 T: 30 QT: 314 QTc: 466 Interpretive Statements SINUS TACHYCARDIA LEFT AXIS DEVIATION ANTEROSEPTAL INFARCT, AGE INDETERMINATE BASELINE ARTIFACT- I, III, AVL ABNORMAL ECG No previous ECG available for comparison Electronically Signed On 01-07-2025 11:46:35 CDT by Alonzo Liang D.O.
--- NOTE | 2025-01-07 11:46 | PC.NURSE ---
attempted 2 IV sticks without success
[2025-01-07 12:00] LABS: BEDSIDEPREGUCG Negative (Negative)
[2025-01-07 12:01] LABS: Hematocrit 36.8 % (37.0-47.0); Hemoglobin 12.2 g/dL (12.0-15.0); Immature Granulocyte Percent A 0.4 % (0-0.5); Immature Platelet Fraction Pct 4.6 % (0.9-11.2); Lymphocytes Absolute Auto 0.96 K/mm3 (0.9-3.2); Mean Corpuscular HGB Conc 33.2 g/dl (32-36); Mean Corpuscular Hemoglobin 36.7 pg (26-34); Mean Corpuscular Volume 110.8 fl (80-100); Nucleated Red Blood Cells Absolute Auto 0.000 K/mm3 (0.0-0.012); Nucleated Red Blood Cells Perc 0.0 % (0.0-0.2); Platelet Count Result 86 k/mm3 (150-375); Red Blood Count 3.32 M/mm3 (4.2-5.4); White Blood Count 5.1 K/mm3 (4.5-10.0)
--- NOTE | 2025-01-07 12:04 | ED_ITS ---
HPI - Headache General Chief Complaint: Headache Stated Complaint: migraine Time Seen by Provider: 01/07/25 11:52 Source: patient Mode of arrival: ambulatory Limitations: no limitations History of Present Illness HPI Narrative: 44-year-old female presents to the ER complaining of migraine headache since last night. Patient says symptoms started sometime last night evening. Reports a right-sided headache that radiates down into her neck, she reports photophobia, phonophobia, nausea, vomiting. Patient denies any chest pain, difficulty breathing, fevers, aches, chills, upper respiratory symptoms, cough, or any other symptoms. 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 Patient also says she has a history of a kidney transplant and has 1 functioning kidney. Patient has taken Tylenol this morning without any relief. Patient denies any alcohol or drug use. Patient says the only thing that works for her is dilaudid. Patient says the episodes similar to her previous migraines. Related Data Allergies Allergy/AdvReac Type Severity Reaction Status Date / Time erythromycin base Allergy Intermediate Rash Verified 10/19/24 23:22 gentamicin Allergy Intermediate Rash Verified 10/19/24 23:22 ketorolac (From Toradol) AdvReac Severe Abdominal Verified 10/19/24 23:22 Pain NSAIDS (Non-Steroidal AdvReac Severe Abdominal Verified 10/19/24 23:22 Anti-Inflamma Pain Review of Systems 2 Review of Systems: CONSTITUTIONAL: Denies fever, chills, or sweats. EYES: Denies visual changes, redness, or discharge. Positive for photophobia. ENT: Denies rhinorrhea, congestion, sore throat, or otalgia. Positive for phonophobia. CARDIOVASCULAR: Denies chest pain, palpitations, or edema. RESPIRATORY: Denies cough or dyspnea. GASTROINTESTINAL: Denies abdominal pain, nausea, vomiting, or diarrhea. GENITOURINARY: Denies dysuria or hematuria. SKIN: Denies rash or itching. MUSCULOSKELETAL: Denies back pain, joint pain, or myalgia. NEUROLOGIC: Positive for headaches. Negative for loss of consciousness, focal weakness, slurred speech, confusion, Numbness, or weakness. PSYCHIATRIC: Denies anxiety or depression. All other systems reviewed are negative, except as documented in HPI. [facility] Past Medical History Medical History Anxiety and depression Spinal stenosis DJD (degenerative joint disease) Migraine Biliary atresia Surgical History Surgical History Liver transplant recipient Comments At the time of my signature, I reviewed and agree with the nursing past medical, surgical, social, and family history. There is no relevant family history pertinent to the patient complaint. Exam 2 Narrative: GENERAL: This is a well-nourished, well-developed adult, in no apparent distress. They are non ill-appearing, nontoxic appearing. HEAD: normocephalic, atraumatic. EYES: Sclera clear/white. Conjunctiva normal. Vision is grossly intact. Extraocular movements intact. Pupils PERRLA EARS: External ears normal, auditory canals clear and without drainage, TMs normal without perforation. Hearing grossly intact. NOSE: External nose normal with no obvious nasal discharge, nasal turbinates without redness, no rhinorrhea. THROAT: Mucous membranes moist, posterior pharynx clear, without erythema or swelling. Uvula midline. NECK: Neck supple, non-tender without lymphadenopathy, masses or thyromegaly. CARDIOVASCULAR: Tachycardic rate and rhythm without murmurs, gallops, or rubs. RESPIRATORY: Clear to auscultation. Breath sounds equal bilaterally. No wheezes, rales, or rhonchi. SKIN: warm, Dry, intact with no suspicious lesions or rash, good texture and turgor. NEURO: awake, alert, and oriented to person, place and time. There were no obvious focal neurologic abnormalities. Cranial nerve 2-12 grossly intact. Minor hand tremor present. EXTREMITIES: No joint tenderness, effusion, or edema noted. BACK: Nontender without deformity. No CVA tenderness. Course Course Emergency Course: Portions of this record may have been created with voice recognition software Vital Signs Vital signs: Vital Signs Temperature 98.3 F 01/07/25 11:23 Pulse Rate 122 H 01/07/25 11:23 Respiratory Rate 20 01/07/25 11:23 Blood Pressure 168/109 H 01/07/25 11:23 Pulse Oximetry 100 01/07/25 11:23 Oxygen Delivery Room Air 01/07/25 11:23 Temperature 98.3 F 01/07/25 11:23 Pulse Rate 122 H 01/07/25 11:23 Respiratory Rate 20 01/07/25 11:23 Blood Pressure 168/109 H 01/07/25 11:23 Pulse Oximetry 100 01/07/25 11:23 Oxygen Delivery Room Air 01/07/25 11:23 Reviewed MDM - Headache MDM Narrative Medical decision making narrative: Patient's symptoms are consistent with her previous migraines, no changes in her headaches, no indication for imaging. Lab work, EKG ordered in triage. EKG showed sinus tachycardia at a rate of 132, no ST elevation depression, nonspecific T-wave abnormality to V1 and AVR. No reciprocal changes. No prior EKG to compare to. Patient has slightly elevated bilirubin, slightly elevated it liver enzymes and elevated creatinine. Unable to compare what her baseline is given her history of liver transplant and kidney transplant. Patient said she had lab work recently about a week ago and was told everything was stable. Patient says she tactile around 730 this morning, was going to try Tylenol, Compazine, Benadryl, with IV fluids, patient demanded dilaudid saying nothing else works for her. Patient is hypertensive and tachycardic, denies any drug or alcohol use. Discussed care plan with patient inform year we should try these medications for says narcotics will cause rebound headaches would not be beneficial for her condition. Patient unable to take NSAIDs due to kidney transplant per doctor's request. After patient found she was not receiving to dilaudid right away, she decided she no longer wants to be here and wants to sign out against medical advice. I suspect drug-seeking behavior. Patient appears to understand the risk of leaving prior to an incomplete medical evaluation which could lead to but not limited to worsening condition, permanent disability or . Patient refused to sign AMA paperwork. Patient has the mental capacity to make informed medical decisions on her behalf. Differential Diagnosis Differential diagnosis: Likely migraine, headache and other (Drug-seeking behavior, drug withdrawal) Lab Data Attestation: I reviewed the patient's lab results. 01/07/25 11:54 01/07/25 11:54 Labs: Lab Results 01/07/25 01/07/25 01/07/25 Range/Units 11:54 11:56 12:03 WBC Pending RBC Pending Hgb Pending Hct Pending MCV Pending MCH Pending MCHC Pending RDW Pending Plt Count Pending MPV Pending Immature Gran % (Auto) Pending Neut % (Auto) Pending Lymph % (Auto) Pending Benton % (Auto) Pending Eos % (Auto) Pending Baso % (Auto) Pending Lymph # (Auto) Pending Benton # (Auto) Pending Eos # (Auto) Pending Baso # (Auto) Pending Abs Immat Gran (auto) Pending Absolute Neuts (auto) Pending Absolute Nucleated RBC Pending Nucleated RBC % Pending Sodium Pending Potassium Pending Chloride Pending Carbon Dioxide Pending Anion Gap Pending BUN Pending Creatinine Pending Estim Creat Clear Calc Pending Estimated GFR Pending Glucose Pending Calcium Pending Total Bilirubin Pending AST Pending ALT Pending Alkaline Phosphatase Pending Total Protein Pending Albumin Pending POC Urine HCG, Qual Negative (Negative) Urine Opiates Screen Pending Urine Methadone Screen Pending Ur Barbiturates Screen Pending Ur Phencyclidine Scrn Pending Ur Amphetamine Screen Pending U Benzodiazepines Scrn Pending Urine Cocaine Screen Pending U Cannabinoids Screen Pending ECG Data EKG #1: Attestation: I personally reviewed and interpreted this ECG as follows: ECG completion date: 01/07/25 ECG completion time: 11:32 Prior ECG tracings: not available for review EKG Interpretation: tachycardia, sinus rhythm, normal QRS, normal QT, NL axis and other (Nonspecific T-wave changes.) Critical Care Time Critical Care Time Critical Care Time: No Discharge Plan Discharge Clinical Impression: Drug-seeking behavior, Migraine Patient Disposition: Left Against Medical Advice Condition: Stable Patient Language: Prydeinig Follow-up/Referrals: PHYSICIAN NOT ON STAFF,NONSTAFF [Primary Care Provider] Time of Disposition: 12:08
[2025-01-07 12:23] LABS: Alanine Aminotransferase 28 U/L (6-35); Albumin Level 3.6 g/dL (3.5-5.1); Alkaline Phosphatase 221 U/L (38-126); Anion Gap 9 mmol/L (4-12); Aspartate Amino Transferase 45 U/L (14-36); Bilirubin,Total 1.5 mg/dL (0.2-1.3); Blood Urea Nitrogen 26 mg/dL (7-17); Calcium 8.8 mg/dL (8.4-10.2); Carbon Dioxide 16 mmol/L (22-30); Chloride 112 mmol/L (98-107); Estimated CRCL calculation 37 ml/min; Estimated Glomerular Filt Rate 30; Glucose 100 mg/dL (65-110); Potassium 4.4 mmol/L (3.4-5.0); Sodium 137 mmol/L (137-145); Total Protein 6.8 g/dL (6.3-8.2)
[2025-01-07 12:56] LABS: Cannabinoid Screen Urine Negative (Negative)
[2025-01-07 13:05] LABS: Macrocytosis 2+ (NORMAL); Schistocytes None Seen
--- OUTSIDE RECORDS SUMMARY | 2025-01-07 13:07 | XMS_ITS | Encounter Summary ---
Author Organization [facility] Address [address] [place] [address] Phone Care Team Providers Care Blurb Writer Name Role Phone Hermes Ramirez MD Primary Care Provider [phone] Reason for Visit * Reason Comments Anxiety Migraine Encounter Details Date Type Department Care Team (Late st Contact Info) Description 01/07/2025 1:07 PM CDT - Present Emergency [facility] [address] [place] [address] Social History Tobacco Use Types Packs/Day Years [...] Value Date Recorded Sex Assigned at Female 11/03/2024 7:36 PM CDT Legal Sex Female 7:35 PM CDT Gender Identity Female 11/03/2024 7:36 PM CDT Sexual Orientation Not on file documented as of this encounter Last Filed Vital Signs Vital Sign Reading Time Taken Comments Blood Pressure 160/95 01/07/2025 1:03 PM CDT Pulse 134 01/07/2025 1:03 PM CDT Temperature 36.9 C (98.4 F) 01/07/2025 1:03 PM CDT Respiratory Rate 18 01/07/2025 1:03 PM CDT Oxygen Saturation 98% 01/07/2025 1:03 PM CDT Inhaled Oxygen Concentration - - Weight 81.6 kg (180 lb) 01/07/2025 1:03 PM CDT Height 157.5 cm (5' 2) 01/07/2025 1:03 PM CDT Body Mass Index 32.92 01/07/2025 1:03 PM CDT documented in this encounter ED Notes * Ana Maria Harrington RN - 01/07/2025 1:04 PM CDT Patient ambulatory to ED for migraine. Patient states hx of migraine and it started last night. Patient states due to 2 liver transplants, 1 kidney transplant, she is unable to take motrin and is allowed 1g Tylenol. Patient states it has not helped. Patient also states when she arrived she started f eelign a heaviness on her chest, but states she believes it's anxiety due to hx of anxiety and it feels the same. Patient's heart rate elevated during triage, patient states she took her medication today but states it's elevated due to pain. documented in this encounter Plan of Treatment Scheduled Orders Name Type Priority Associated Diagnoses Orde r Schedule EKG 12 LEAD ECG STAT One Time for 1 Occurrences starting 01/07/2025 until 01/07/2025 documented as of this encounter Visit Diagnoses Not on filedocumented in this encounter Additional Health Concerns Assessment Noted Time PHQ-9 Depression Total Score: 0 01/21/20 2:00 PM CDT documented as of this encounter Care Teams Blurb Writer Relationship Specialty Start Date End Date Hermes Ramirez MD [address] [address] PCP - General Family Medicine 05/09/18 documented as of this encounter
--- OUTSIDE RECORDS SUMMARY | 2025-01-07 14:07 | XMS_ITS | Clinical Summary ---
Author Organization [facility] Address [address] [place] [address] Care Team Providers Care Registered Nurse [facility] Name Role Phone Beatriz Lee MD Unavailable [phone]- [phone] Lyly Fiore [employer]PER[employer] Primary Care Provider Taylor Kitchen RN Unavailable Unav ailable Allergies Active Allergy Reactions Criticality Noted Date Comments Aspirin Anaphylaxis,Unkno wn,Other (See comments) High 04/17/2012 Pt states she reports ASA as an allergy because of the interaction w/ Prograf C counteracts immunosuppressment Azathioprine Other (See comments) High 01/07/2025 Azithromycin Unknown 09/29/2017 Codeine Itching High 01/17/2016 Erythromycin Other (See comments),Unknown High 04/17/2012 Pt instructed to report as an allergy because of interaction w/ Prograf Pt instructed to report as an allergy because of interaction w/ Prograf Counteracts immunosuppressants Gentamicin Other (See comments) High 04/23/2020 Medication interaction Ketorolac Unknown 09/29/2017 Ketorolac Tromethamine Other (See comments) High 01/17/2016 KIDNEY Immunosuppressants Nsaids (Non-Steroidal Anti-Inflammatory Drug) Other (See comments) 02/20/2024 Contraindicated to imunosupressants Tizanidine Other (See comments) 01/07/2025 Possible liver issuues Medications venlafaxine (EFFEXOR) 37.5 mg tablet Take 0.5 tablets (18.75 mg total) by mouth 2 (two) times a day before breakfast and dinner 30 tablet 5 Active Additional Information Patient taking differently: 37.5 mgoralDaily, Reported on 11/18/2024 melatonin tablet Take 1 tablet (3 mg total) by mouth nightly Active multivitamin with minerals (Hair,Skin and Nails) tablet Take 1 tablet by mouth daily Active DULoxetine DR (CYMBALTA) 60 mg capsule Take 1 capsule (60 mg total) by mouth daily 5 Active LORazepam (ATIVAN) 0.5 mg tablet Take 1 tablet (0.5 mg total) by mouth as needed 5 Active metoprolol XL (TOPROL-XL) 100 mg 24 hr tablet Take 1 tablet (100 mg total) by mouth 2 (two) times a day Active vit-iron fum-folic ac ( Vitamin) 27 mg iron- 800 mcg tablet Take 1 tablet by mouth daily Active cholestyramine (QUESTRAN LIGHT) 4 gram powder in packetIndicatio ns:Biliary Obstruction with Pruritus Take 1 packet by mouth 2 (two) times a day 60 packet [address] (MYFORTIC) 360 mg EC tablet Take 1 tablet (360 mg total) by mouth every 12 (twelve) hours 60 tablet 5 Active tacrolimus XR (ENVARSUS XR) 1 mg tablet extended release 24 hrIndications:i mmunosuppressio n Take 2 tablets (2 mg total) by mouth daily 60 tablet 5 Active methocarbamoL (ROBAXIN) 500 mg tablet Take 1 tablet (500 mg total) by mouth 3 (three) times a day as needed for muscle spasms (2nd line for pain) 30 tablet 5 12/24/19 25 predniSONE (DELTASONE) 5 mg tablet Take 1 tablet (5 mg) by mouth daily 30 tablet 5 12/24/19 25 Active Problems Patient Care Coordination No te Formatting of this note migh t be different from the original. Lab: [facility]. . . Timeframe orders are good for: 1 year Last orders sent to lab on: 12/30/2024 Cmp, cbc, ggt, tac biweekly Pharmacy: [place], [place] Patient enrolled in [employer] assistance program for Envarsus until 03/2025 -[facility] for script Problem Noted Date Diagnosed Date Vertebrogenic low back pain 01/07/2025 Assessment & Plan (01/07/2025 1:33 PM CDT): She does note some flexion based pain but her pain is not solely flexion based so it is possible she has a vertebrogenic component but it is hard to say if that is a majority of her pain. She is interested in BVN ablation. Does have Modic II changes L4, L5, S1. She would like to proceed with Intracept, I was explicit there is no guarantee it will help given the non-specific nature of her pain and the fact that it is not solely flexion based. Cirrhosis 11/16/2024 Assessment & Plan (11/23/2024 11:06 AM CDT): 44 y.o. 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 She had an operation for plantar fasciitis on 11/13 and started having nausea/chills post-op. OSH labs notable for TBili 9.2 (0.6 in August), ALP 402 (241 in August), AST 30, ALT 37. OSH US showed cirrhosis with portal HTN, did not show biliary duct dilation. Infectious workup negative thus far including blood cultures, UA, CXR, CMV DNA PCR. MRI/MRCP obtained here 11/17 with segmental atrophy of left lateral section with intrahepatic ductal dilation and diminutive L portal vein, R portal vein occlusive thrombus, and linear filling defect within suprahepatic IVC, and was without ascites or findings of definite recurrent portal HTN. TTE (11/21) to evaluate suprahepatic IVC filling defect remarkable for concentric LV hypertrophy (EF 77%), severely dilated LA without MR and only mild aortic regurg, there was no IVC thrombus. - Hepatology favoring cholestatic liver injury 2/2 DILI from AZA per prelim liver biopsy. AZA stopped. - Cholestyramine BID Assessment & Plan (11/22/2024 1:51 PM CDT): 44 y.o. 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 She had an operation for plantar fasciitis on 11/13 and started having nausea/chills post-op. OSH labs notable for TBili 9.2 (0.6 in August), ALP 402 (241 in August), AST 30, ALT 37. OSH US showed cirrhosis with portal HTN, did not show biliary duct dilation. Infectious workup negative thus far including blood cultures, UA, CXR, CMV DNA PCR. MRI/MRCP obtained here 11/17 with segmental atrophy of left lateral section with intrahepatic ductal dilation and diminutive L portal vein, R portal vein occlusive thrombus, and linear filling defect within suprahepatic IVC, and was without ascites or findings of definite recurrent portal HTN. TTE (11/21) to evaluate suprahepatic IVC filling defect remarkable for concentric LV hypertrophy (EF 77%), severely dilated LA without MR and only mild aortic regurg, there was no IVC thrombus. 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 She had an operation for plantar fasciitis on 11/13 and started having nausea/chills post-op. OSH labs notable for TBili 9.2 (0.6 in August), ALP 402 (241 in August), AST 30, ALT 37. OSH US showed cirrhosis with portal HTN, did not show biliary duct dilation. Infectious workup negative thus far including blood cultures, UA, CXR, CMV DNA PCR. MRI/MRCP obtained here 11/17 with segmental atrophy of left lateral section with intrahepatic ductal dilation and diminutive L portal vein, R portal vein occlusive thrombus, and linear filling defect within suprahepatic IVC, and was without ascites or findings of definite recurrent portal HTN. - S/p liver biopsy 11/21, pathology pending - Initiate heparin gtt 11/22 for portal vein thrombus - TTE pending to evaluate suprahepatic IVC filling defect - Cholestyramine BID - Hepatology following, appreciate recs Assessment & Plan (11/20/2024 12:51 PM CDT): 44 y.o. 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 She had an operation for plantar fasciitis on 11/13 and started having nausea/chills post-op. OSH labs notable for TBili 9.2 (0.6 in August), ALP 402 (241 in August), AST 30, ALT 37. OSH US showed cirrhosis with portal HTN, did not show biliary duct dilation. Infectious workup negative thus far including blood cultures, UA, CXR, CMV DNA PCR. MRI/MRCP obtained here 11/17 with segmental atrophy of left lateral section with intrahepatic ductal dilation and diminutive L portal vein, R portal vein occlusive thrombus, and linear filling defect within suprahepatic IVC, and was without ascites or findings of definite recurrent portal HTN. - Plan for liver biopsy 11/21, per hepatology will wait until after biopsy to initiate AC - TTE pending to evaluate suprahepatic IVC filling defect - Cholestyramine BID Assessment & Plan (11/19/2024 12:02 PM CDT): 44 y.o. 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 She had an operation for plantar fasciitis on 11/13 and started having nausea/chills post-op. OSH labs notable for TBili 9.2 (0.6 in August), ALP 402 (241 in August), AST 30, ALT 37. OSH US showed cirrhosis with portal HTN, did not show biliary duct dilation. Infectious workup negative thus far including blood cultures, UA, CXR, CMV DNA PCR. MRI/MRCP obtained here 11/17 with segmental atrophy of left lateral section with intrahepatic ductal dilation and diminutive L portal vein, R portal vein occlusive thrombus, and linear filling defect within suprahepatic IVC, and was without ascites or findings of definite recurrent portal HTN. - Plan for liver biopsy 11/20, per hepatology will wait until after biopsy to initiate AC - TTE pending to evaluate suprahepatic IVC filling defect - Cholestyramine BID Assessment & Plan (11/18/2024 3:03 PM CDT): Transferred from OSH for management of cholestatic liver injury, nausea and chills that began after operation for plantar fascitis on 11/13. OSH labs notable for TBili 9.2 (0.6 in August), ALP 402 (241 in August), AST 30, ALT 37. OSH US showed cirrhosis with portal HTN, did not show biliary duct dilation. MRI/MRCP (11/17) with segmental atrophy of left lateral section with intrahepatic ductal dilation and diminutive L portal vein, R portal vein occlusive thrombus, and linear filling defect within suprahepatic IVC, no ascites or findings of definite recurrent portal HTN. - Infectious workup negative thus far including blood cultures, UA, CXR, CMV DNA PCR - Plan for liver biopsy 11/19 - TTE to evaluate suprahepatic IVC filling defect - Cholestyramine BID Assessment & Plan (11/17/2024 10:44 AM CDT): Transferred from OSH for management of choelstatic liver injury, nausea and chills that began after operation for plantar fascitis on 11/13. OSH labs notable for TBili 9.2 (0.6 in August), ALP 402 (241 in August), AST 30, ALT 37. OSH US showed cirrhosis with portal HTN, did not show biliary duct dilation. - Infectious workup negative thus far including blood cultures, UA, CXR, CMV DNA PCR (pending) - MRI/MRCP ordered per hepatology recs Assessment & Plan (11/16/2024 6:11 PM CDT): Transferred from OSH for management of choelstatic liver injury, nausea and chills that began after operation for plantar fascitis on 11/13. OSH labs notable for TBili 9.2 (0.6 in August), ALP 402 (241 in August), AST 30, ALT 37. OSH US showed cirrhosis with portal HTN, did not show biliary duct dilation. - Infectious workup including blood cultures, UA, CXR, CMV DNA PCR - MRI/MRCP ordered per hepatology recs Cholestatic jaundice 11/16/2024 Assessment & Plan (11/23/2024 11:06 AM CDT): 44 y.o. 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 She had an operation for plantar fasciitis on 11/13 and started having nausea/chills post-op. OSH labs notable for TBili 9.2 (0.6 in August), ALP 402 (241 in August), AST 30, ALT 37. OSH US showed cirrhosis with portal HTN, did not show biliary duct dilation. Infectious workup negative thus far including blood cultures, UA, CXR, CMV DNA PCR. MRI/MRCP obtained here 11/17 with segmental atrophy of left lateral section with intrahepatic ductal dilation and diminutive L portal vein, R portal vein occlusive thrombus, and linear filling defect within suprahepatic IVC, and was without ascites or findings of definite recurrent portal HTN. TTE (11/21) to evaluate suprahepatic IVC filling defect remarkable for concentric LV hypertrophy (EF 77%), severely dilated LA without MR and only mild aortic regurg, there was no IVC thrombus. - Hepatology favoring cholestatic liver injury 2/2 DILI from AZA per prelim liver biopsy. AZA stopped. - Cholestyramine BID Assessment & Plan (11/22/2024 1:51 PM CDT): 44 y.o. 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 She had an operation for plantar fasciitis on 11/13 and started having nausea/chills post-op. OSH labs notable for TBili 9.2 (0.6 in August), ALP 402 (241 in August), AST 30, ALT 37. OSH US showed cirrhosis with portal HTN, did not show biliary duct dilation. Infectious workup negative thus far including blood cultures, UA, CXR, CMV DNA PCR. MRI/MRCP obtained here 11/17 with segmental atrophy of left lateral section with intrahepatic ductal dilation and diminutive L portal vein, R portal vein occlusive thrombus, and linear filling defect within suprahepatic IVC, and was without ascites or findings of definite recurrent portal HTN. TTE (11/21) to evaluate suprahepatic IVC filling defect remarkable for concentric LV hypertrophy (EF 77%), severely dilated LA without MR and only mild aortic regurg, there was no IVC thrombus. 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 She had an operation for plantar fasciitis on 11/13 and started having nausea/chills post-op. OSH labs notable for TBili 9.2 (0.6 in August), ALP 402 (241 in August), AST 30, ALT 37. OSH US showed cirrhosis with portal HTN, did not show biliary duct dilation. Infectious workup negative thus far including blood cultures, UA, CXR, CMV DNA PCR. MRI/MRCP obtained here 11/17 with segmental atrophy of left lateral section with intrahepatic ductal dilation and diminutive L portal vein, R portal vein occlusive thrombus, and linear filling defect within suprahepatic IVC, and was without ascites or findings of definite recurrent portal HTN. - S/p liver biopsy 11/21, pathology pending - Initiate heparin gtt 11/22 for portal vein thrombus - TTE pending to evaluate suprahepatic IVC filling defect - Cholestyramine BID - Hepatology following, appreciate recs Assessment & Plan (11/20/2024 12:51 PM CDT): 44 y.o. 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 She had an operation for plantar fasciitis on 11/13 and started having nausea/chills post-op. OSH labs notable for TBili 9.2 (0.6 in August), ALP 402 (241 in August), AST 30, ALT 37. OSH US showed cirrhosis with portal HTN, did not show biliary duct dilation. Infectious workup negative thus far including blood cultures, UA, CXR, CMV DNA PCR. MRI/MRCP obtained here 11/17 with segmental atrophy of left lateral section with intrahepatic ductal dilation and diminutive L portal vein, R portal vein occlusive thrombus, and linear filling defect within suprahepatic IVC, and was without ascites or findings of definite recurrent portal HTN. - Plan for liver biopsy 11/21, per hepatology will wait until after biopsy to initiate AC - TTE pending to evaluate suprahepatic IVC filling defect - Cholestyramine BID Assessment & Plan (11/19/2024 12:02 PM CDT): 44 y.o. 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 She had an operation for plantar fasciitis on 11/13 and started having nausea/chills post-op. OSH labs notable for TBili 9.2 (0.6 in August), ALP 402 (241 in August), AST 30, ALT 37. OSH US showed cirrhosis with portal HTN, did not show biliary duct dilation. Infectious workup negative thus far including blood cultures, UA, CXR, CMV DNA PCR. MRI/MRCP obtained here 11/17 with segmental atrophy of left lateral section with intrahepatic ductal dilation and diminutive L portal vein, R portal vein occlusive thrombus, and linear filling defect within suprahepatic IVC, and was without ascites or findings of definite recurrent portal HTN. - Plan for liver biopsy 11/20, per hepatology will wait until after biopsy to initiate AC - TTE pending to evaluate suprahepatic IVC filling defect - Cholestyramine BID Assessment & Plan (11/18/2024 3:03 PM CDT): Transferred from OSH for management of cholestatic liver injury, nausea and chills that began after operation for plantar fascitis on 11/13. OSH labs notable for TBili 9.2 (0.6 in August), ALP 402 (241 in August), AST 30, ALT 37. OSH US showed cirrhosis with portal HTN, did not show biliary duct dilation. MRI/MRCP (11/17) with segmental atrophy of left lateral section with intrahepatic ductal dilation and diminutive L portal vein, R portal vein occlusive thrombus, and linear filling defect within suprahepatic IVC, no ascites or findings of definite recurrent portal HTN. - Infectious workup negative thus far including blood cultures, UA, CXR, CMV DNA PCR - Plan for liver biopsy 11/19 - TTE to evaluate suprahepatic IVC filling defect - Cholestyramine BID Assessment & Plan (11/17/2024 10:44 AM CDT): Transferred from OSH for management of choelstatic liver injury, nausea and chills that began after operation for plantar fascitis on 11/13. OSH labs notable for TBili 9.2 (0.6 in August), ALP 402 (241 in August), AST 30, ALT 37. OSH US showed cirrhosis with portal HTN, did not show biliary duct dilation. - Infectious workup negative thus far including blood cultures, UA, CXR, CMV DNA PCR (pending) - MRI/MRCP ordered per hepatology recs Assessment & Plan (11/16/2024 6:11 PM CDT): Transferred from OSH for management of choelstatic liver injury, nausea and chills that began after operation for plantar fascitis on 11/13. OSH labs notable for TBili 9.2 (0.6 in August), ALP 402 (241 in August), AST 30, ALT 37. OSH US showed cirrhosis with portal HTN, did not show biliary duct dilation. - Infectious workup including blood cultures, UA, CXR, CMV DNA PCR - MRI/MRCP ordered per hepatology recs Liver transplant complication 11/16/2024 Assessment & Plan (11/23/2024 11:06 AM CDT): On home tacrolimus 2mg daily, azathioprine 100mg daily. - Discontinued azathioprine 11/21 given c/f DILI 2/2 AZA - Transplant Nephro recommended MPA 360mg BID - Continue tacrolimus 2mg daily. Tacrolimus troughs ordered 1hr prior to administration time (goal 4-7) - Continue prednisone 5mg daily Assessment & Plan (11/22/2024 1:51 PM CDT): On home tacrolimus 2mg daily, azathioprine 100mg daily. - Discontinued azathioprine 11/21 given c/f DILI 2/2 AZA - Transplant Nephro to recommend alternative immunosuppression - Continue tacrolimus 2mg daily. Tacrolimus troughs ordered 1hr prior to administration time (goal 4-7) Assessment & Plan (11/21/2024 7:09 AM CDT): On home tacrolimus 2mg daily, azathioprine 100mg daily. - Continue home immunosuppressant medications per transplant nephro recs - Tacrolimus troughs ordered 1hr prior to administration time (goal 4-7) Assessment & Plan (11/20/2024 7:28 AM CDT): On home tacrolimus 2mg daily, azathioprine 100mg daily. - Continue home immunosuppressant medications per transplant nephro recs - Tacrolimus troughs ordered 1hr prior to administration time (goal 4-7) Assessment & Plan (11/19/2024 11:20 AM CDT): On home tacrolimus 2mg daily, azathioprine 100mg daily. - Continue home immunosuppressant medications per transplant nephro recs - Tacrolimus troughs ordered 1hr prior to administration time (goal 4-7) Assessment & Plan (11/18/2024 7:20 AM CDT): On home tacrolimus 2mg daily, azathioprine 100mg daily. - Continue home immunosuppressant medications per hepatology recs - Tacrolimus troughs ordered 1hr prior to administration time - Hepatology and transplant nephrology following Assessment & Plan (11/17/2024 7:48 AM CDT): On home tacrolimus 2mg daily, azathioprine 100mg daily. - Continue home immunosuppressant medications per hepatology recs - Tacrolimus troughs ordered 1hr prior to administration time - Hepatology and transplant nephrology following Assessment & Plan (11/16/2024 6:11 PM CDT): On home tacrolimus 2mg daily, azathioprine 100mg daily. - Continue home immunosuppressant medications per hepatology recs - Tacrolimus troughs ordered 1hr prior to administration time - Hepatology and transplant nephrology following Renal transplant recipient 11/16/2024 Assessment & Plan (11/23/2024 11:06 AM CDT): On home tacrolimus 2mg daily, azathioprine 100mg daily. - Discontinued azathioprine 9/4 given c/f DILI 2/2 AZA - Transplant Nephro recommended MPA 360mg BID - Continue tacrolimus 2mg daily. Tacrolimus troughs ordered 1hr prior to administration time (goal 4-7) - Continue prednisone 5mg daily Assessment & Plan (11/22/2024 1:51 PM CDT): On home tacrolimus 2mg daily, azathioprine 100mg daily. - Discontinued azathioprine 9/4 given c/f DILI 2/2 AZA - Transplant Nephro to recommend alternative immunosuppression - Continue tacrolimus 2mg daily. Tacrolimus troughs ordered 1hr prior to administration time (goal 4-7) Assessment & Plan (11/21/2024 7:09 AM CDT): On home tacrolimus 2mg daily, azathioprine 100mg daily. - Continue home immunosuppressant medications per transplant nephro recs - Tacrolimus troughs ordered 1hr prior to administration time (goal 4-7) Assessment & Plan (11/20/2024 7:28 AM CDT): On home tacrolimus 2mg daily, azathioprine 100mg daily. - Continue home immunosuppressant medications per transplant nephro recs - Tacrolimus troughs ordered 1hr prior to administration time (goal 4-7) Assessment & Plan (11/19/2024 11:20 AM CDT): On home tacrolimus 2mg daily, azathioprine 100mg daily. - Continue home immunosuppressant medications per transplant nephro recs - Tacrolimus troughs ordered 1hr prior to administration time (goal 4-7) Assessment & Plan (11/18/2024 7:20 AM CDT): On home tacrolimus 2mg daily, azathioprine 100mg daily. - Continue home immunosuppressant medications per hepatology recs - Tacrolimus troughs ordered 1hr prior to administration time - Hepatology and transplant nephrology following Assessment & Plan (11/17/2024 7:48 AM CDT): On home tacrolimus 2mg daily, azathioprine 100mg daily. - Continue home immunosuppressant medications per hepatology recs - Tacrolimus troughs ordered 1hr prior to administration time - Hepatology and transplant nephrology following Assessment & Plan (11/16/2024 6:11 PM CDT): On home tacrolimus 2mg daily, azathioprine 100mg daily. - Continue home immunosuppressant medications per hepatology recs - Tacrolimus troughs ordered 1hr prior to administration time - Hepatology and transplant nephrology following Plantar fasciitis 11/16/2024 Assessment & Plan (11/23/2024 6:49 AM CDT): Status post procedure on 11/13, patient with some post-operative pain previously managed with oral Percocet. Patient endorses itchiness with oral opioid medications, prefers IV. Patient informed that there is no indication for IV pain medication at this time, and using opioids may worsen her concurrent headaches. On 11/16, patient initially stated she would leave AMA if she could not receive IV opioids, removed her own IV. Later that day agreeable to stay to continue workup, agreed to plan that she will not receive opioids IV or orally, IV Benadryl or benzodiazepines PO or IV during this admission. Of note prior discharge summary mentions patient reporting suicidally if she could not receive IV Dilaudid. See significant event note from 11/16 for further details. - Plan to address pain after 11/21 liver biopsy: - S/p IV Dilaudid 1mg x2 11/21 am - First 24 hours (until 11/22 10am): Spot dose Oxy 5-10mg if pt requests something for pain. If she has breakthrough pain she may get IV Dilaudid. - 24-48 hours (until 11/23 10am): Spot dose Oxy 5-10mg if pt requests something for pain. No IV pain medications. - After 48 hours: No more opioid pain medications, return to former pain agreement. PRN Tylenol and Robaxin as ordered. Assessment & Plan (11/22/2024 7:15 AM CDT): Status post procedure on 11/13, patient with some post-operative pain previously managed with oral Percocet. Patient endorses itchiness with oral opioid medications, prefers IV. Patient informed that there is no indication for IV pain medication at this time, and using opioids may worsen her concurrent headaches. On 11/16, patient initially stated she would leave AMA if she could not receive IV opioids, removed her own IV. Later that day agreeable to stay to continue workup, agreed to plan that she will not receive opioids IV or orally, IV Benadryl or benzodiazepines PO or IV during this admission. Of note prior discharge summary mentions patient reporting suicidally if she could not receive IV Dilaudid. See significant event note from 11/16 for further details. - Plan to address pain after 11/21 liver biopsy: - S/p IV Dilaudid 1mg x2 94 am - First 24 hours (until 11/22 10am): Spot dose Oxy 5-10mg if pt requests something for pain. If she has breakthrough pain she may get IV Dilaudid. - 24-48 hours (until 11/23 10am): Spot dose Oxy 5-10mg if pt requests something for pain. No IV pain medications. - After 48 hours: No more opioid pain medications, return to former pain agreement. PRN Tylenol and Robaxin as ordered. Assessment & Plan (11/21/2024 1:46 PM CDT): Status post procedure on 11/13, patient with some post-operative pain previously managed with oral Percocet. Patient endorses itchiness with oral opioid medications, prefers IV. Patient informed that there is no indication for IV pain medication at this time, and using opioids may worsen her concurrent headaches. On 11/16, patient initially stated she would leave AMA if she could not receive IV opioids, removed her own IV. Later that day agreeable to stay to continue workup, agreed to plan that she will not receive opioids IV or orally, IV Benadryl or benzodiazepines PO or IV during this admission. Of note prior discharge summary mentions patient reporting suicidally if she could not receive IV Dilaudid. See significant event note from 11/16 for further details. - Plan to address pain after 11/21 liver biopsy: - S/p IV Dilaudid 1mg x2 11/21 am - First 24 hours (until 11/22 10am): Spot dose Oxy 5-10mg if pt requests something for pain. If she has breakthrough pain she may get IV Dilaudid. - 24-48 hours (until 11/23 10am): Spot dose Oxy 5-10mg if pt requests something for pain. No IV pain medications. - After 48 hours: No more opioid pain medications, return to former pain agreement. PRN Tylenol and Robaxin as ordered. Assessment & Plan (11/20/2024 7:28 AM CDT): Status post procedure on 11/13, patient with some post-operative pain previously managed with oral Percocet. Patient endorses itchiness with oral opioid medications, prefers IV. Patient informed that there is no indication for IV pain medication at this time, and using opioids may worsen her concurrent headaches. On 11/16, patient initially stated she would leave AMA if she could not receive IV opioids, removed her own IV. Later that day agreeable to stay to continue workup, agreed to plan that she will not receive opioids IV or orally, IV Benadryl or benzodiazepines PO or IV during this admission. Of note prior discharge summary mentions patient reporting suicidally if she could not receive IV Dilaudid. See significant event note from 11/16 for further details. Assessment & Plan (11/19/2024 7:12 AM CDT): Status post procedure on 11/13, patient with some post-operative pain previously managed with oral Percocet. Patient endorses itchiness with oral opioid medications, prefers IV. Patient informed that there is no indication for IV pain medication at this time, and using opioids may worsen her concurrent headaches. On 11/16, patient initially stated she would leave AMA if she could not receive IV opioids, removed her own IV. Later that day agreeable to stay to continue workup, agreed to plan that she will not receive opioids IV or orally, IV Benadryl or benzodiazepines PO or IV during this admission. Of note prior discharge summary mentions patient reporting suicidally if she could not receive IV Dilaudid. See significant event note from 11/16 for further details. Assessment & Plan (11/18/2024 7:20 AM CDT): Status post procedure on 11/13, patient with some post-operative pain previously managed with oral Percocet. Patient endorses itchiness with oral opioid medications, prefers IV. Patient informed that there is no indication for IV pain medication at this time, and using opioids may worsen her concurrent headaches. On 11/16, patient initially stated she would leave AMA if she could not receive IV opioids, removed her own IV. Later that day agreeable to stay to continue workup, agreed to plan that she will not receive opioids IV or orally, IV Benadryl or benzodiazepines PO or IV during this admission. Of note prior discharge summary mentions patient reporting suicidally if she could not receive IV Dilaudid. See significant event note from 11/16 for further details. Assessment & Plan (11/17/2024 7:48 AM CDT): Status post procedure on 11/13, patient with some post-operative pain previously managed with oral Percocet. Patient endorses itchiness with oral opioid medications, prefers IV. Patient informed that there is no indication for IV pain medication at this time, and using opioids may worsen her concurrent headaches. On 11/16, patient initially stated she would leave AMA if she could not receive IV opioids, removed her own IV. Later that day agreeable to stay to continue workup, agreed to plan that she will not receive opioids IV or orally, IV Benadryl or benzodiazepines PO or IV during this admission. Of note prior discharge summary mentions patient reporting suicidally if she could not receive IV Dilaudid. See significant event note from 11/16 for further details. Assessment & Plan (11/16/2024 6:11 PM CDT): Status post procedure on 11/13, patient with some post-operative pain previously managed with oral Percocet. Patient endorses itchiness with oral opioid medications, prefers IV. Patient informed that there is no indication for IV pain medication at this time, and using opioids may worsen her concurrent headaches. On 11/16, patient initially stated she would leave AMA if she could not receive IV opioids, removed her own IV. Later that day agreeable to stay to continue workup, agreed to plan that she will not receive opioids IV or orally, IV Benadryl or benzodiazepines PO or IV during this admission. Of note prior discharge summary mentions patient reporting suicidally if she could not receive IV Dilaudid. See significant event note from 11/16 for further details. Chronic back pain 11/16/2024 Assessment & Plan (11/23/2024 6:49 AM CDT): Status post procedure on 11/13, patient with some post-operative pain previously managed with oral Percocet. Patient endorses itchiness with oral opioid medications, prefers IV. Patient informed that there is no indication for IV pain medication at this time, and using opioids may worsen her concurrent headaches. On 11/16, patient initially stated she would leave AMA if she could not receive IV opioids, removed her own IV. Later that day agreeable to stay to continue workup, agreed to plan that she will not receive opioids IV or orally, IV Benadryl or benzodiazepines PO or IV during this admission. Of note prior discharge summary mentions patient reporting suicidally if she could not receive IV Dilaudid. See significant event note from 11/16 for further details. - Plan to address pain after 11/21 liver biopsy: - S/p IV Dilaudid 1mg x2 9/4 am - First 24 hours (until 11/22 10am): Spot dose Oxy 5-10mg if pt requests something for pain. If she has breakthrough pain she may get IV Dilaudid. - 24-48 hours (until 11/23 10am): Spot dose Oxy 5-10mg if pt requests something for pain. No IV pain medications. - After 48 hours: No more opioid pain medications, return to former pain agreement. PRN Tylenol and Robaxin as ordered. Assessment & Plan (11/22/2024 7:15 AM CDT): Status post procedure on 11/13, patient with some post-operative pain previously managed with oral Percocet. Patient endorses itchiness with oral opioid medications, prefers IV. Patient informed that there is no indication for IV pain medication at this time, and using opioids may worsen her concurrent headaches. On 11/16, patient initially stated she would leave AMA if she could not receive IV opioids, removed her own IV. Later that day agreeable to stay to continue workup, agreed to plan that she will not receive opioids IV or orally, IV Benadryl or benzodiazepines PO or IV during this admission. Of note prior discharge summary mentions patient reporting suicidally if she could not receive IV Dilaudid. See significant event note from 11/16 for further details. - Plan to address pain after 11/21 liver biopsy: - S/p IV Dilaudid 1mg x2 9/4 am - First 24 hours (until 11/22 10am): Spot dose Oxy 5-10mg if pt requests something for pain. If she has breakthrough pain she may get IV Dilaudid. - 24-48 hours (until 11/23 10am): Spot dose Oxy 5-10mg if pt requests something for pain. No IV pain medications. - After 48 hours: No more opioid pain medications, return to former pain agreement. PRN Tylenol and Robaxin as ordered. Assessment & Plan (11/21/2024 1:46 PM CDT): Status post procedure on 11/13, patient with some post-operative pain previously managed with oral Percocet. Patient endorses itchiness with oral opioid medications, prefers IV. Patient informed that there is no indication for IV pain medication at this time, and using opioids may worsen her concurrent headaches. On 11/16, patient initially stated she would leave AMA if she could not receive IV opioids, removed her own IV. Later that day agreeable to stay to continue workup, agreed to plan that she will not receive opioids IV or orally, IV Benadryl or benzodiazepines PO or IV during this admission. Of note prior discharge summary mentions patient reporting suicidally if she could not receive IV Dilaudid. See significant event note from 11/16 for further details. - Plan to address pain after 11/21 liver biopsy: - S/p IV Dilaudid 1mg x2 11/21 am - First 24 hours (until 11/22 10am): Spot dose Oxy 5-10mg if pt requests something for pain. If she has breakthrough pain she may get IV Dilaudid. - 24-48 hours (until 11/23 10am): Spot dose Oxy 5-10mg if pt requests something for pain. No IV pain medications. - After 48 hours: No more opioid pain medications, return to former pain agreement. PRN Tylenol and Robaxin as ordered. Assessment & Plan (11/20/2024 7:28 AM CDT): Status post procedure on 11/13, patient with some post-operative pain previously managed with oral Percocet. Patient endorses itchiness with oral opioid medications, prefers IV. Patient informed that there is no indication for IV pain medication at this time, and using opioids may worsen her concurrent headaches. On 11/16, patient initially stated she would leave AMA if she could not receive IV opioids, removed her own IV. Later that day agreeable to stay to continue workup, agreed to plan that she will not receive opioids IV or orally, IV Benadryl or benzodiazepines PO or IV during this admission. Of note prior discharge summary mentions patient reporting suicidally if she could not receive IV Dilaudid. See significant event note from 11/16 for further details. Assessment & Plan (11/19/2024 7:12 AM CDT): Status post procedure on 11/13, patient with some post-operative pain previously managed with oral Percocet. Patient endorses itchiness with oral opioid medications, prefers IV. Patient informed that there is no indication for IV pain medication at this time, and using opioids may worsen her concurrent headaches. On 11/16, patient initially stated she would leave AMA if she could not receive IV opioids, removed her own IV. Later that day agreeable to stay to continue workup, agreed to plan that she will not receive opioids IV or orally, IV Benadryl or benzodiazepines PO or IV during this admission. Of note prior discharge summary mentions patient reporting suicidally if she could not receive IV Dilaudid. See significant event note from 11/16 for further details. Assessment & Plan (11/18/2024 7:20 AM CDT): Status post procedure on 11/13, patient with some post-operative pain previously managed with oral Percocet. Patient endorses itchiness with oral opioid medications, prefers IV. Patient informed that there is no indication for IV pain medication at this time, and using opioids may worsen her concurrent headaches. On 11/16, patient initially stated she would leave AMA if she could not receive IV opioids, removed her own IV. Later that day agreeable to stay to continue workup, agreed to plan that she will not receive opioids IV or orally, IV Benadryl or benzodiazepines PO or IV during this admission. Of note prior discharge summary mentions patient reporting suicidally if she could not receive IV Dilaudid. See significant event note from 11/16 for further details. Assessment & Plan (11/17/2024 7:48 AM CDT): Status post procedure on 11/13, patient with some post-operative pain previously managed with oral Percocet. Patient endorses itchiness with oral opioid medications, prefers IV. Patient informed that there is no indication for IV pain medication at this time, and using opioids may worsen her concurrent headaches. On 11/16, patient initially stated she would leave AMA if she could not receive IV opioids, removed her own IV. Later that day agreeable to stay to continue workup, agreed to plan that she will not receive opioids IV or orally, IV Benadryl or benzodiazepines PO or IV during this admission. Of note prior discharge summary mentions patient reporting suicidally if she could not receive IV Dilaudid. See significant event note from 11/16 for further details. Assessment & Plan (11/16/2024 6:11 PM CDT): Status post procedure on 11/13, patient with some post-operative pain previously managed with oral Percocet. Patient endorses itchiness with oral opioid medications, prefers IV. Patient informed that there is no indication for IV pain medication at this time, and using opioids may worsen her concurrent headaches. On 11/16, patient initially stated she would leave AMA if she could not receive IV opioids, removed her own IV. Later that day agreeable to stay to continue workup, agreed to plan that she will not receive opioids IV or orally, IV Benadryl or benzodiazepines PO or IV during this admission. Of note prior discharge summary mentions patient reporting suicidally if she could not receive IV Dilaudid. See significant event note from 11/16 for further details. Unspecified mood disorder 11/16/2024 Assessment & Plan (11/23/2024 6:49 AM CDT): Home venlafaxine 18.75mg daily, duloxetine 60mg daily. - Continue home antidepressants Assessment & Plan (11/22/2024 7:15 AM CDT): Home venlafaxine 18.75mg daily, duloxetine 60mg daily. - Continue home antidepressants Assessment & Plan (11/21/2024 7:09 AM CDT): Home venlafaxine 18.75mg daily, duloxetine 60mg daily. - Continue home antidepressants Assessment & Plan (11/20/2024 7:28 AM CDT): Home venlafaxine 18.75mg daily, duloxetine 60mg daily. - Continue home antidepressants Assessment & Plan (11/19/2024 7:12 AM CDT): Home venlafaxine 18.75mg daily, duloxetine 60mg daily. - Continue home antidepressants Assessment & Plan (11/18/2024 7:20 AM CDT): Home venlafaxine 18.75mg daily, duloxetine 60mg daily. - Continue home antidepressants Assessment & Plan (11/17/2024 7:48 AM CDT): Home venlafaxine 18.75mg daily, duloxetine 60mg daily. - Continue home antidepressants Assessment & Plan (11/16/2024 6:11 PM CDT): Home venlafaxine 18.75mg daily, duloxetine 60mg daily. - Continue home antidepressants Cervicalgia 10/29/2024 Overview (12/23/2024): XR 10/29/24 FINDINGS: 4 radiographs of the cervical spine are submitted. Comparison is made to spine radiographs dated 07/24/2024. Normal sagittal alignment of the cervical spine. No acute fracture. Mild C5-C7 degenerative disc disease. Normal neural foramina. Prior dental restorations. IMPRESSION: 1. Mild C5-C7 degenerative disc disease. Assessment & Plan (01/07/2025 8:50 AM CDT): Did PT at [facility] in the past - denies benefit. Notes headaches which she feels are related to the neck. Notes some tingling in the forearms/arms. Reviewed XR. Reviewed XR. Ordered MRI. Acute kidney injury superimposed on CKD 09/03/19 [...] with baseline creatinine ~2. Previously followed at [facility], but has she has been wanting to transfer care to [place] but has not been able to schedule an appointment. She follows with [facility]. Per Liver Transplant office visit [...] with baseline creatinine ~2. Previously followed at [facility], but has she has been wanting to transfer care to [place] but has not been able to schedule an appointment. She follows with [facility]. Per Liver Transplant office visit [...] with baseline creatinine ~2. Previously followed at [facility], but has she has been wanting to transfer care to [place] but has not been able to schedule an appointment. She follows with [facility]. Per Liver Transplant office visit [...] with baseline creatinine ~2. Previously followed at [facility], but has she has been wanting to transfer care to [place] but has not been able to schedule an appointment. She follows with [facility]. Per Liver Transplant office visit [...] with baseline creatinine ~2. Previously followed at [facility], but has she has been wanting to transfer care to [place] but has not been able to schedule an appointment. She follows with [facility]. Per Liver Transplant office visit [...] with baseline creatinine ~2. Previously followed at [facility], but has she has been wanting to transfer care to [place] but has not been able to schedule an appointment. She follows with [facility]. 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 She has CKD with baseline creatinine ~2. Previously followed at [facility], but has she has been wanting to transfer care to [place] but has not been able to schedule an appointment. She follows with [facility]. Per Liver Transplant office visit [...] with baseline creatinine ~2. Previously followed at [facility], but has she has been wanting to transfer care to [place] but has not been able to schedule an appointment. She follows with [facility]. Per Liver Transplant office visit [...] with baseline creatinine ~2. Previously followed at [facility], but has she has been wanting to transfer care to [place] but has not been able to schedule an appointment. She follows with [facility]. Per Liver Transplant office visit [...] with baseline creatinine ~2. Previously followed at [facility], but has she has been wanting to transfer care to [place] but has not been able to schedule an appointment. She follows with [facility]. Per Liver Transplant office visit [...] with baseline creatinine ~2. Previously followed at [facility], but has she has been wanting to transfer care to [place] but has not been able to schedule an appointment. She follows with [facility]. Per Liver Transplant office visit [...] mg -Outpatient transplant nephrology referral on discharge. (HFpEF) heart failure with preserved ejection fr action 09/01/2024 Assessment & Plan (11/23/2024 6:49 AM CDT): On home metoprolol 100mg BID. TTE from 05/2024 with LVEF 70%, mod concentric LVH. Mod dilated LA. - Continue home metoprolol Assessment & Plan (11/22/2024 7:15 AM CDT): On home metoprolol 100mg BID. TTE from 05/2024 with LVEF 70%, mod concentric LVH. Mod dilated LA. - Continue home metoprolol Assessment & Plan (11/21/2024 7:09 AM CDT): On home metoprolol 100mg BID. TTE from 05/2024 with LVEF 70%, mod concentric LVH. Mod dilated LA. - Continue home metoprolol Assessment & Plan (11/20/2024 7:28 AM CDT): On home metoprolol 100mg BID. TTE from 05/2024 with LVEF 70%, mod concentric LVH. Mod dilated LA. - Continue home metoprolol Assessment & Plan (11/19/2024 7:12 AM CDT): On home metoprolol 100mg BID. TTE from 05/2024 with LVEF 70%, mod concentric LVH. Mod dilated LA. - Continue home metoprolol Assessment & Plan (11/18/2024 7:20 AM CDT): On home metoprolol 100mg BID. TTE from 05/2024 with LVEF 70%, mod concentric LVH. Mod dilated LA. - Continue home metoprolol Assessment & Plan (11/17/2024 7:48 AM CDT): On home metoprolol 100mg BID. TTE from 05/2024 with LVEF 70%, mod concentric LVH. Mod dilated LA. - Continue home metoprolol Assessment & Plan (11/16/2024 6:11 PM CDT): On home metoprolol 100mg BID. TTE from 05/2024 with LVEF 70%, mod concentric LVH. Mod dilated LA. - Continue home metoprolol Assessment & Plan (09/06/2024 2:16 PM CDT): [...] diff, norovirus pending Lumbar spondylosis 08/14/2024 Overview (01/07/2025): Images from the original note were not included. LMBB Bilateral L4-5 and L5-S1 09/25/24 - MRI L SPINE 07/2023 Assessment & Plan (01/07/2025 1:27 PM CDT): Failed LMBB Assessment & Plan (10/29/2024 1:04 PM CDT): Discussed three additional options including basovertebral nerve ablation, SPRINT PNS and Reactiv8. She will take some time to think about it and let us know what she decides. She was leaning toward the BVN ablation or the SPRINT PNS. - in the mean time, sent prescription for muscle relaxant tizanidine to try for pain relief. 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 Discussed importance of [...] would not be able to prescribe terminal computer operator opioids on discharge. Discussed importance of [...] would not be able to prescribe terminal computer operator opioids on discharge. Discussed importance of [...] would not be able to prescribe terminal computer operator opioids on discharge. Discussed importance of [...] disc disease with radiculopathy Assessment & Plan (01/07/2025 1:27 PM CDT): Reports minimal pain in legs and not clearly dermatomal. Assessment & Plan (10/29/2024 10:58 AM CDT): Unchanged from previous appointment. No change in recommendations. Assessment & Plan (09/25/2024 10:07 AM CDT): Reports pain into the legs is tolerable. Can consider LESI, but does have some lipomatosis so would only consider if pain is uncontrolled. Thoracic spinal stenosis 08/14/2024 Overview (01/07/2025): MRI T SPINE 07/13/23 Some mild-moderate canal stenosis worst at T3-4 [...] would not be able to prescribe terminal computer operator opioids on discharge. Discussed importance of [...] venlafaxine HTN (hypertension) 05/30/2024 Assessment & Plan (11/23/2024 6:49 AM CDT): On home metoprolol 100mg BID. TTE from 05/2024 with LVEF 70%, mod concentric LVH. Mod dilated LA. - Continue home metoprolol Assessment & Plan (11/22/2024 7:15 AM CDT): On home metoprolol 100mg BID. TTE from 05/2024 with LVEF 70%, mod concentric LVH. Mod dilated LA. - Continue home metoprolol Assessment & Plan (11/21/2024 7:09 AM CDT): On home metoprolol 100mg BID. TTE from 05/2024 with LVEF 70%, mod concentric LVH. Mod dilated LA. - Continue home metoprolol Assessment & Plan (11/20/2024 7:28 AM CDT): On home metoprolol 100mg BID. TTE from 05/2024 with LVEF 70%, mod concentric LVH. Mod dilated LA. - Continue home metoprolol Assessment & Plan (11/19/2024 7:12 AM CDT): On home metoprolol 100mg BID. TTE from 05/2024 with LVEF 70%, mod concentric LVH. Mod dilated LA. - Continue home metoprolol Assessment & Plan (11/18/2024 7:20 AM CDT): On home metoprolol 100mg BID. TTE from 05/2024 with LVEF 70%, mod concentric LVH. Mod dilated LA. - Continue home metoprolol Assessment & Plan (11/17/2024 7:48 AM CDT): On home metoprolol 100mg BID. TTE from 05/2024 with LVEF 70%, mod concentric LVH. Mod dilated LA. - Continue home metoprolol Assessment & Plan (11/16/2024 6:11 PM CDT): On home metoprolol 100mg BID. TTE from 05/2024 with LVEF 70%, mod concentric LVH. Mod dilated LA. - Continue home metoprolol Assessment & Plan (09/06/2024 2:16 PM CDT): [...] with baseline creatinine ~2. Previously followed at [facility], but has she has been wanting to transfer care to [place] but has not been able to schedule an appointment. She follows with [facility]. Per Liver Transplant office visit [...] with baseline creatinine ~2. Previously followed at [facility], but has she has been wanting to transfer care to [facility] but has not been able to schedule an appointment. She follows with [facility]. Per Liver Transplant office visit [...] with baseline creatinine ~2. Previously followed at [facility], but has she has been wanting to transfer care to [facility] but has not been able to schedule an appointment. She follows with [facility]. Per Liver Transplant office visit [...] with baseline creatinine ~2. Previously followed at [facility], but has she has been wanting to transfer care to [facility] but has not been able to schedule an appointment. She follows with [facility]. Per Liver Transplant office visit [...] with baseline creatinine ~2. Previously followed at [facility], but has she has been wanting to transfer care to [facility] but has not been able to schedule an appointment. She follows with [facility]. Per Liver Transplant office visit [...] with baseline creatinine ~2. Previously followed at [facility], but has she has been wanting to transfer care to [place] but has not been able to schedule an appointment. She follows with [facility]. Per Liver Transplant office visit [...] Transplant starting process of assuming care from [facility], but in short term they recommend patient follow up with renal transplant at [facility]. - She is NOW actively enrolled in the [employer] free patient assistance program through mar 2025 - script needs to be sent to [facility] (sent). Hyperbilirubinemia 04/16/2020 Assessment & Plan (04/16/2020 5:01 AM TRANSPORTATION DEPARTMENT SUPERVISOR): - T. Bili of 7 (last [...] 07/25/2019 Assessment & Plan (04/16/2020 2:25 AM TRANSPORTATION DEPARTMENT SUPERVISOR): See hyperbili problem. Concern for ascites [...] wi thout status migrainosus, not intractable 03/27/2018 Assessment & Plan (10/29/2024 11:00 AM CDT): Discussed possibility of TPI or botox injections at a future visit. Recommended staying adequately hydrated during hot summer months as she mentioned headaches are more frequent in the summer and improve with fluid boluses. 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 - Discontinued azathioprine 9/4 given c/f DILI 2/2 AZA - Transplant Nephro recommended MPA 360mg BID - Continue tacrolimus 2mg daily. Tacrolimus troughs ordered 1hr prior to administration time (goal 4-7) - Continue prednisone 5mg daily Assessment & Plan (11/22/2024 1:51 PM CDT): On home tacrolimus 2mg daily, azathioprine 100mg daily. - Discontinued azathioprine 9/4 given c/f DILI 2/2 AZA - Transplant Nephro to recommend alternative immunosuppression - Continue tacrolimus 2mg daily. Tacrolimus troughs ordered 1hr prior to administration time (goal 4-7) Assessment & Plan (11/21/2024 7:09 AM CDT): On home tacrolimus 2mg daily, azathioprine 100mg daily. - Continue home immunosuppressant medications per transplant nephro recs - Tacrolimus troughs ordered 1hr prior to administration time (goal 4-7) Assessment & Plan (11/20/2024 7:28 AM CDT): On home tacrolimus 2mg daily, azathioprine 100mg daily. - Continue home immunosuppressant medications per transplant nephro recs - Tacrolimus troughs ordered 1hr prior to administration time (goal 4-7) Assessment & Plan (11/19/2024 11:20 AM CDT): On home tacrolimus 2mg daily, azathioprine 100mg daily. - Continue home immunosuppressant medications per transplant nephro recs - Tacrolimus troughs ordered 1hr prior to administration time (goal 4-7) Assessment & Plan (06/03/2024 4:46 PM CDT): Cr 2.1 (was around 1.6 in 2023 until 2.2 in 03/2024)-peaked at 2.9 now trending down to1.8 - see #kidney transplant - Avoid nephrotoxins - renally dosed meds Assessment & Plan (04/16/2020 5:01 AM TRANSPORTATION DEPARTMENT SUPERVISOR): Unclear if progression of CKD vs [...] Cr of 1.8. She follows with local respiratory director Dr. Mathew and thinks her baseline is 2.1. She was at 2.3 at OSH. She took some diuretics at home and was given lasix at OSH ED. --UA, urine lytes --get records from her respiratory director to find out baseline --random tacro level --monitor Is & Os; avoid nephrotoxins Teratogen exposure in current 02/21/20 12 Genital [...] liver and kidney transplant 04/2020. 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 We would need to call [facility] to identify a contracted center ([phone]). She lives close enough to [place] that would be the most likely city she could travel to. She also noted that she could always remarry an ex- as he has insurance that may be covered at [facility]. Appreciate note from nephrology and agree with restarting oral diuretics. Can continue tacrolimus at the current dose. MRI/MRCP completed and will review with radiology to identify if any role for PTC. 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 Poor follow up with Dr. Vazquez. Poor compliance with tacro - check tacro trough in AM. Resume tacro 1mg bid Assessment & Plan (07/25/2019 6:27 AM CDT): History of liver transplant in 1992 2/2 biliary atresia. Was following with liver, last seen 12/2017. --continue tacro 2mg BID; get random level --consult liver transplant team Encounters Date Type Department Care Team Description 01/07/2025 8:10 AM CDT Hospital Encounter [facility] [address] [place] [address] Igor Graham MD Vertebrogenic low back pain (Primary Dx); Cervicalgia; Lumbar spondylosis; Lumbar disc disease with radiculopathy 12/31/2024 Telephone [facility] and [facility] Transplant Liver [address] Mailstop [phone] [place] [address] Lorena Turner 12/30/2024 Orders Only [facility] Transplant Liver [address] Mailstop [phone] [place] [address] Yulisa Welch History of liver transplant (HCC) (Primary Dx) 12/30/2024 Documentation [facility] and [facility] Transplant Liver [address] Mailstop [id number] [place] [address] Taylor Kitchen RN 12/03/2024 8:04 PM CDT - 12/04/2024 2:03 AM CDT Emergency [facility] Emergency Department [address] [place] [address] Julianne Do MD Serpe, Joy Stevens MD Jaundice (Primary Dx); Migraine without aura and without status migrainosus, not intractable Discharge Disposition: Discharge to home or self care 11/28/2024 Documentation [facility] Transplant Liver [address] [place] [address] [address] [phone] [place] [address] Taylor Kitchen RN 11/28/2024 Results Follow-Up [facility] Transplant Liver [address] [place] [address] [address] Mailstop -[phone] [place] [address] Taylor Kitchen RN Surgical pathology 11/25/2024 SHOP/CHAP Initial Eligibility Review [facility] [address] [place] [address] Shireen Griffin RN 11/21/2024 Orders Only [facility] Radiology [facility] [place] [address] [place] [address] Tor Snowden RN 11/16/2024 8:44 AM CDT - 11/23/2024 12:01 PM CDT Hospital Encounter [address] [phone] Sandy Anne MD Shaikh, Safia, MD McDonough, Cheryl Riddle, MD History of biliary atresia; Cholestatic liver disease; Cirrhosis of transplanted liver (HCC) Discharge Disposition: Discharge to home or self care 11/15/2024 Telephone [facility] Gastroenterology [address] [facility] [address] 12th [place] [address] [place] [phone] Sandy Anne MD 10/30/2024 Results Follow-Up [facility] [address] [facility] [address] 1st [place] [id number] Igor Graham MD X-ray cervical spine complete 4 or 5 vw 10/29/2024 8:58 AM CDT - 10/29/2024 11:59 PM CDT Hospital Encounter [facility] [address] [place] [address] Igor Graham MD Cervicalgia Discharge Disposition: Discharge to home or self care 10/29/2024 7:29 AM CDT - 10/29/2024 11:59 PM CDT Hospital Encounter [facility] [address] [place] [address] Igor Graham MD Lumbar spondylosis (Primary Dx); Lumbar disc disease with radiculopathy; Cervicalgia Discharge Disposition: Discharge to home or self care 10/24/2024 Documentation [facility] Transplant Liver [address] Mailstop [phone] [place] [address] Taylor Kitchen RN 10/23/2024 Telephone [facility] Transplant Liver [address] Mailstop [phone] [place] [address] Liyah Kamara from Last 3 Months Surgical History Surgery Date Site/Laterality Comments OK COLONOSCOPY FLX DX W/ROMAIN J SPEC WHEN PFRMD Complete Colonoscopy - (Added by TW Conv) COLPOSCOPY TUBAL LIGATION LIVER TRANSPLANT 03/20/1992 - 03/19/1993 SECTION x two BREAST LUMPECTOMY Left fibrous adenoma PORTOENTEROSTOMY KASAI PROCEDURE at 6 weeks old INGUINAL HERNIA REPAIR 03/20/1985 - 03/19/1986 Bilateral US GUIDED BIOPSY LIVER 11/21/2024 N/A Medical History Medical History Date Comments Pancreatitis [...] Tobacco: Never Tobacco Cessation:Ready to Q uit: Yes; Counseling Given: Yes Comments:1/2 pack, some days none Alcohol Use Standard Drinks/Week Comments Never 0 (1 standard drink = 0.6 oz pur e alcohol) rare Social Connection and Isolation Panel Answer Date Recorded In a typical week, how [...] any clubs o r organizations such as hinduism groups, unions, fraternal or athletic groups, or school groups? No 09/03/2024 How often do you attend meet ings of the clubs or organizations you belong to? Never 09/03/2024 Are you , , di vorced, , never , or living with a partner? Living with partner 09/03/2024 Overall Financial Resource Strain (CARDIA) Answe r Date Recorded How hard is it for you to pa y for the very basics like food, housing, medical care, and heating? Not hard at all 09/03/2024 PHQ-2 Answer Date Recorded PHQ-2 Total Score 0 11/19/2024 PRAPARE - Transportation Answer Date Re corded [...] in the past [address] [facility], were you homeless or living in a long term (including now)? No 09/03/2024 Social Connection and Isolation Panel Answer Date Recorded In a typical week, how many times do you talk on the phone with family, friends, or neighbors? Three times a week 11/19/2024 How often do you get togethe r with friends or relatives? Three times a week 11/19/2024 How often do you attend chur ch or yarsanism services? Never 11/19/2024 Do you belong to any clubs o r organizations such as hinduism groups, unions, fraternal or athletic groups, or school groups? No 11/19/2024 How often do you attend meet ings of the clubs or organizations you belong to? Never 11/19/2024 Are you , , di vorced, , never , or living with a partner? Never 11/19/2024 AUDIT-C Answer Date Recorded Q1: How often do you have a drink containing alcohol? Never 01/07/2025 Q2: How many drinks containi ng alcohol do you have on a typical day when you are drinking? Patient does not drink Frequency of Binge Drinking Not on file 12/19 Overall Financial Resource Strain (CARDIA) Answe r Date Recorded How hard is it for you to pa y for the very basics like food, housing, medical care, and heating? Not hard at all 11/19/2024 [facility] [place] [facility] - Occupational Stress Questionnaire Answer Date Recorded Do you feel stress - tense, restless, nervous, or anxious, or unable to sleep at night because your mind is troubled all the time - these days? To some extent 11/16/2024 Hunger Vital Sign Answer Date Recorded Within the past 12 months, y ou worried that your food would run out before you got the money to buy more. Never true 01/08/20 25 Within the past 12 months, t he food you bought just didn't last and you didn't have money to get more. Never true 01/07/2025 PRAPARE - Transportation Answer Date Re corded In the past 12 months, has l ack of transportation kept you from medical appointments or from getting medications? No 04/2024 In the past 12 months, has l ack of transportation kept you from meetings, work, or from getting things needed for daily living? No 11/19/2024 Housing Stability Vital Sign Answer Angel e Recorded In the last 12 months, was t here a time when you were not able to pay the mortgage or rent on time? No 11/19/2024 In the past 12 months, how m any times have you moved where you were living? 0 11/19/2024 At any time in the past [address] [facility], were you homeless or living in a long term (including now)? No 11/19/2024 [facility] Utilities Answer Date Recorded In the past 12 months has th e electric, gas, oil, or water company threatened to shut off services in your home? No 11/19/2024 Personal Safety Answer Date Recorded Have you ever been in or are you currently in a harmful physical or emotional relationship or is someone making you feel afraid or unsafe? Denies 12/03/2024 Comments No Sex and Gender Information Value Date Recorded Sex Assigned at Not on file Legal Sex Female 10:10 PM TRANSPORTATION DEPARTMENT SUPERVISOR Gender Identity Not on file Sexual Orientation Not on file Obstetrics History Last Filed Vital Signs Vital Sign Reading Time Taken Comments Blood Pressure 165/105 01/07/2025 8:24 AM CDT Pulse 112 01/07/2025 8:24 AM CDT Temperature 36.5 C (97.7 F) 01/07/2025 8:24 AM CDT Respiratory Rate 16 01/07/2025 8:24 AM CDT Oxygen Saturation 100% 01/07/2025 8:24 AM CDT Inhaled Oxygen Concentration - - Weight 81.6 kg (180 lb) 01/07/2025 8:24 AM CDT Height 157.5 cm (5' 2) 01/07/2025 8:24 AM CDT Body Mass Index 32.92 01/07/2025 8:24 AM CDT Plan of Treatment Health Maintenance [...] 06/20/2022 Influenza Vaccine (#1) 2024 Depression Screening 11/15/2025 11/15/2024, 08/31/2024, 05/29/2024, Additional history exists DTaP/Tdap/Td Vaccine (5 - Td or Tdap) 10/19/2031 10/18/2021, 05/10/2017, 03/20/2017, Additional history exists Hepatitis C Screening Completed 04/16/2020 Goals Goal Patient Goal Type Associated Problems Recent Progress Patient-Stated? Author CCM Chronic Pain Care Plan Chronic Care Management Worsening( 8:28 AM CDT) Terrie Abraham, Matias Landa, ANSON Note: Problem: Chronic Pain Goals: 1. Minimize further functional decline 2. Maximize quality of life 3. Control pain Strategies: - Activity/exercise program recommendation - Conservative stepwise pain medicine strategy with multi-disciplinary approach - Recommend healthy lifestyle strategies and compensatory methods as needed Procedures Procedure Name Priority Date/Time Associated Diagnosis Comments COMPREHENSIVE METABOLIC PANEL Routine 12/31/2024 GAMMA GT Routine 12/31/2024 CBC WITH AUTO DIFFERENTIAL Routine 12/31/2024 EGFR STAT 12/03/2024 8:17 PM CDT DIFFERENTIAL AUTO STAT 12/03/2024 8:1 7 PM CDT TACROLIMUS LEVEL, RANDOM STAT 12/03/2024 8:17 PM CDT PROTIME-INR STAT 12/03/2024 8:17 PM CDT APTT STAT 12/03/2024 8:17 PM CDT HEPATIC FUNCTION PANEL STAT 8:17 PM CDT BASIC METABOLIC PANEL STAT 12/03/2024 8:17 PM CDT CBC WITH AUTO DIFFERENTIAL STAT 12/03/2024 8:17 PM CDT EGFR Routine 11/22/2024 11:15 PM CDT DIFFERENTIAL AUTO Routine 11/22/2024 11:15 PM CDT PROTIME-INR Routine 11/22/2024 11:15 PM CDT COMPREHENSIVE METABOLIC PANEL Routine 11/22/2024 11:15 PM CDT CBC WITH AUTO DIFFERENTIAL Routine 11/22/2024 11:15 PM CDT TACROLIMUS LEVEL, TROUGH Routine 11/22/2024 9:28 AM CDT EGFR Routine 11/21/2024 11:18 PM CDT DIFFERENTIAL AUTO Routine 11/21/2024 11:18 PM CDT PROTIME-INR Routine 11/21/2024 11:18 PM CDT COMPREHENSIVE METABOLIC PANEL Routine 11/21/2024 11:18 PM CDT CBC WITH AUTO DIFFERENTIAL Routine 11/21/2024 11:18 PM CDT TRANSTHORACIC ECHO (TTE) COMPLETE W DOPPLER/CF WO CONTRAST ED Urgent/IP Urgent 11/21/2024 3:04 PM CDT CBC WITHOUT DIFFERENTIAL STAT 11/21/2024 10:54 AM CDT TACROLIMUS LEVEL, TROUGH Routine 11/21/2024 10:54 AM CDT US GUIDED BIOPSY LIVER IP Routine 7:39 AM CDT SURGICAL PATHOLOGY Routine 11/21/2024 7: 35 AM CDT History of biliary atresia Cholestatic liver disease Cirrhosis of transplanted liver (HCC) EGFR Routine 11/20/2024 11:21 PM CDT DIFFERENTIAL AUTO Routine 11/20/2024 11:21 PM CDT APTT Routine 11/20/2024 11:21 PM CDT PROTIME-INR Routine 11/20/2024 11:21 PM CDT COMPREHENSIVE METABOLIC PANEL Routine 11/20/2024 11:21 PM CDT CBC WITH AUTO DIFFERENTIAL Routine 11/20/2024 11:21 PM CDT TACROLIMUS LEVEL, TROUGH Routine 11/20/2024 6:30 AM CDT EGFR Routine 11/20/2024 12:34 AM CDT DIFFERENTIAL AUTO Routine 11/20/2024 12:34 AM CDT APTT Routine 11/20/2024 12:34 AM CDT PROTIME-INR Routine 11/20/2024 12:34 AM CDT COMPREHENSIVE METABOLIC PANEL Routine 11/20/2024 12:34 AM CDT CBC WITH AUTO DIFFERENTIAL Routine 11/20/2024 12:34 AM CDT B CHECK SAMPLE STAT 11/19/2024 9:10 AM CDT TACROLIMUS LEVEL, TROUGH Routine 11/19/2024 9:10 AM CDT DIFFERENTIAL AUTO Routine 11/18/2024 9:5 3 PM CDT EGFR Routine 11/18/2024 9:53 PM CDT TYPE AND SCREEN Timed 11/18/2024 9:53 PM CDT APTT Routine 11/18/2024 9:53 PM CDT PROTIME-INR Routine 11/18/2024 9:53 PM CDT COMPREHENSIVE METABOLIC PANEL Routine 11/18/2024 9:53 PM CDT CBC WITH AUTO DIFFERENTIAL Routine 11/18/2024 9:53 PM CDT TACROLIMUS LEVEL, TROUGH Routine 11/18/2024 9:34 AM CDT EGFR Routine 11/18/2024 12:06 AM CDT DIFFERENTIAL AUTO Routine 11/18/2024 12:06 AM CDT PROTIME-INR Routine 11/18/2024 12:06 AM CDT COMPREHENSIVE METABOLIC PANEL Routine 11/18/2024 12:06 AM CDT CBC WITH AUTO DIFFERENTIAL Routine 11/18/2024 12:06 AM CDT MRI ABDOMEN MRCP W WO CONTRAST INCL 3D (C) IP Routine 11/17/2024 11:34 AM CDT TACROLIMUS LEVEL, TROUGH Routine 11/17/2024 6:30 AM CDT HEPATIC FUNCTION PANEL Routine 4:02 AM CDT EGFR Routine 11/17/2024 4:02 AM CDT DIFFERENTIAL AUTO Routine 11/17/2024 4:0 2 AM CDT TACROLIMUS LEVEL, TROUGH Routine 11/17/2024 4:02 AM CDT APTT Routine 11/17/2024 4:02 AM CDT PROTIME-INR Routine 11/17/2024 4:02 AM CDT CBC WITH AUTO DIFFERENTIAL Routine 11/17/2024 4:02 AM CDT BASIC METABOLIC PANEL Routine 11/17/2024 4:02 AM CDT BLOOD CULTURE Routine 11/17/2024 4:02 AM CDT CYTOMEGALOVIRUS (CMV) DNA, QUANT GEN LAB Routine 11/17/2024 4:02 AM CDT XR CHEST 1 VIEW IP Routine 11/16/2024 4:55 PM CDT URINALYSIS AND REFLEX TO MICROSCOPIC AND CULTURE STAT 11/16/2024 4:39 PM CDT BLOOD CULTURE STAT 11/16/2024 3:28 PM CDT EGFR STAT 11/16/2024 1:46 PM CDT DIFFERENTIAL AUTO STAT 11/16/2024 1:4 6 PM CDT ACETAMINOPHEN LEVEL Timed 11/16/2024 1 :46 PM CDT LACTATE Routine 11/16/2024 1:46 PM CDT LIPASE Timed 11/16/2024 1:46 PM CDT TACROLIMUS LEVEL, RANDOM Timed 11/16/2024 1:46 PM CDT COMPREHENSIVE METABOLIC PANEL STAT 11/16/2024 1:46 PM CDT CBC WITH AUTO DIFFERENTIAL STAT 11/16/2024 1:46 PM CDT XR SPINE CERVICAL COMPLETE 4 OR 5 VW Schedule Routine, Read Routine (OP Routine) 10/29/2024 9:09 AM CDT Cervicalgia AMB REFERRAL SMOKEFREETXT Routine 10/26/2024 9:25 AM CDT Nicotine dependence with current use HEPATITIS PANEL, ACUTE Routine 6:35 AM TRANSPORTATION DEPARTMENT SUPERVISOR from Last 3 Months or Most Recently Relevant to Health Maintenance Results * (ABNORMAL) CBC with auto differential (12/31/2024) SCRIBED WBC 5.5 3.8 - 9.9 K/cumm TXP NO LAB FOUND SCRIBED Hemoglobin 12.4 11.9 - 15.5 g/dL TXP NO LAB FOUND SCRIBED Hematocrit 36.6(A) 38.9 - 50.3 % TXP NO LAB FOUND SCRIBED Platelets 113(A) 150 - 400 K/cumm TXP NO LAB FOUND SCRIBED RBC TXP NO L AB FOUND Comment:- SCRIBED Neutrophils 57.8 NONE % TXP NO LAB FOUND SCRIBED Lymphocytes 27.2 NONE % TXP NO LAB FOUND SCRIBED Monocytes 9.7 NONE % TXP NO LAB FOUND SCRIBED Eosinophils 5.1 NONE % TXP NO LAB FOUND SCRIBED Basophils 0.0 NONE % TXP NO LAB FOUND Blood 12/31/2024 Historical Provider LAB BLOOD ORDERABLES Aniya l Result TXP NO LAB FOUND * (ABNORMAL) Gamma GT (12/31/2024) SCRIBED GGT 121(A) 5 - 55 TXP NO L AB FOUND Blood 12/31/2024 us Historical Provider LAB BLOOD ORDERABLES Edit ed Result - Final TXP NO LAB FOUND * (ABNORMAL) Comprehensive metabolic panel (12/31/2024) Pathologist [facility] SCRIBED Sodium 140 135 - 145 mmol/L TXP NO LAB FOUND SCRIBED Potassium 4.4 3.3 - 5.2 mmol/L TXP NO LAB FOUND SCRIBED Chloride 107 97 - 110 mmol/L TXP NO LAB FOUND SCRIBED Carbon Dioxide 24 22 - 32 mmol/L TXP NO LAB FOUND SCRIBED Anion Gap TX P NO LAB FOUND Comment:- SCRIBED Urea Nitrogen (BUN) 20 6 - 25 mg/dL TXP NO LAB FOUND SCRIBED Creatinine 2.08(A) 0.60 - 1.10 mg/dL TXP NO LAB FOUND SCRIBED Glucose 97 70 - 199 mg/dL TXP NO LAB FOUND SCRIBED Calcium 8.5 8.5 - 10.3 mg/dL TXP NO LAB FOUND SCRIBED Bilirubin 1.5(A) 0.1 - 1.2 mg/dL TXP NO LAB FOUND SCRIBED Plasma Protein 6.3(A) 6.5 - 8.5 g/dL TXP NO LAB FOUND SCRIBED Albumin 2.9(A) 3.5 - 5.0 g/dL TXP NO LAB FOUND SCRIBED Alkaline Phosphatase 300(A) 40 - 130 Units/L TXP NO LAB FOUND SCRIBED Alanine Transaminase (ALT) 33 7 - 45 Units/L TXP NO LAB FOUND SCRIBED Aspartate Transaminase (AST) 26 10 - 45 Units/L TXP NO LAB FOUND Blood 12/31/2024 Historical Provider LAB BLOOD ORDERABLES Aniya l Result TXP NO LAB FOUND * (ABNORMAL) eGFR (12/03/2024 8:17 PM CDT) Pathologist [facility] eGFR 39(L) >=60 mL/min/1. 73 m2 Comment: Interpretive Data [...] interpretive data was last reviewed 2021. Blood 12/03/2024 8:17 PM CDT 12/03/2024 8:29 PM CDT Gayla Kian Mcrae MD LAB BLOOD ORDERABLES Final Result [facility] Department [place] [address] * Differential, auto (12/03/2024 8:17 PM CDT) Neutrophil abs 1.62 1.50 - 6.50 K/cumm Imm gran abs 0.02 0.00 - 0.10 K/cumm [facility] Lymphocyte abs 1.12 0.80 - 3.30 K/cumm [facility] Monocyte abs 0.53 0.20 - 0.80 K/cumm [facility] Eosinophil abs 0.17 0.00 - 0.50 K/cumm [facility] Basophil abs 0.01 0.00 - 0.10 K/cumm [facility] Neutrophil pct 46.6 % [facility] Comment: Interpretive Data Percent cell count reference ranges are not reported, since discordance with absolute values may lead to misinterpretation of CBC data. Current Interpretive Data was last revised on 2017. Imm gran pct 0.6 % [facility] Comment: Interpretive Data Percent cell count reference ranges are not reported, since discordance with absolute values may lead to misinterpretation of CBC data. Current Interpretive Data was last revised on 2017. Lymphocyte pct 32.3 % [facility] Comment: Interpretive Data Percent cell count reference ranges are not reported, since discordance with absolute values may lead to misinterpretation of CBC data. Current Interpretive Data was last revised on 2017. Monocyte pct 15.3 % [facility] Comment: Interpretive Data Percent cell count reference ranges are not reported, since discordance with absolute values may lead to misinterpretation of CBC data. Current Interpretive Data was last revised on 2017. Eosinophil pct 4.9 % [facility] Comment: Interpretive Data Percent cell count reference ranges are not reported, since discordance with absolute values may lead to misinterpretation of CBC data. Current Interpretive Data was last revised on 2017. Basophil pct 0.3 % [facility] Comment: Interpretive Data Percent cell count reference ranges are not reported, since discordance with absolute values may lead to misinterpretation of CBC data. Current Interpretive Data was last revised on 2017. Blood 12/03/2024 8:17 PM CDT 12/03/2024 8:49 PM CDT Gayla Kian Mcrae MD LAB BLOOD ORDERABLES Final Result [facility] Department [place] [address] * (ABNORMAL) CBC with auto differential (12/03/2024 8:17 PM CDT) WBC 3.47(L) 3.80 - 9.90 K/cumm Hgb 10.8(L) 11.9 - 15.5 g/dL [facility] Hct 32.2(L) 35.6 - 45.5 % [facility] Plt 196 150 - 400 K/cumm [facility] MPV 12.1 9.1 - 12.3 fL [facility] RBC 2.82(L) 3.90 - 5.20 M/cumm [facility] MCV 114.2(H) 81.3 - 96.4 fL [facility] MCH 38.3(H) 27.1 - 33.3 pg [facility] MCHC 33.5 32.3 - 35.7 g/dL [facility] RDW CV 16.5(H) 11.1 - 14.9 % [facility] RDW SD 69.0(H) 35.7 - 48.1 fL [facility] NRBC abs 0.00 0.00 - 0.01 K/cumm [facility] Blood 12/03/2024 8:17 PM CDT 12/03/2024 8:49 PM CDT Gayla Kian Mcrae MD LAB BLOOD ORDERABLES Final Result Performing Organization Address [facility] de Phone Number [facility] Department [place] [address] * Tacrolimus level random (12/03/2024 8:17 PM CDT) Pathologist [facility] Tacrolimus random 6.8 ng/mL Comment: Interpretive Data Testing performed by liquid chromatography-tandem mass spectrometry. Therapeutic concentrations vary depending on type of transplanted organ and time elapsed since transplant. Typical trough concentrations range from 5-15 ng/mL. This test was developed and its performance characteristics determined by the [facility] consistent with CLIA requirements. This test has not been cleared or approved by the [place] Food and Drug administration. Current interpretive data last reviewed 2019. Blood 12/03/2024 8:17 PM CDT 12/03/2024 8:29 PM CDT Gayla Mcrae MD LAB BLOOD ORDERABLES Final Result Performing Organization Address [facility] Co de Phone Number [facility] Department [place] [employer] [place] [address] * aPTT (12/03/2024 8:17 PM CDT) Pathologist [facility] aPTT 30 26 - 38 sec Comment: Interpretive Data Heparin therapeutic range: 66.0 - 100.0 seconds. Range based on correlation with therapeutic heparin activity range of 0.3 - 0.7 Units/mL. Current interpretive data was last revised on 2022. Blood 12/03/2024 8:17 PM CDT 12/03/2024 8:38 PM CDT Gayla Mcrae MD LAB BLOOD ORDERABLES Final Result Performing Organization Address [facility] de Phone Number [facility] [place] [employer] [place] [address] * Protime-INR (12/03/2024 8:17 PM CDT) PT 12.1 10.2 - 13.5 sec INR 1.07 0.90 - 1.20 [facility] Comment: Interpretive data Oral anticoagulant therapeutic ranges: Venous thromboembolism prophylaxis or treatment: 2.0-3.0 CARDIOLOGY Standard range: 2.0-3.0 High-intensity range: 2.5-3.5 Refer to indication-specific guidelines for appropriate target ranges for prosthetic heart valve replacement. Current interpretive data was last revised on 2019. Blood 12/03/2024 8:17 PM CDT 12/03/2024 8:38 PM CDT Gayla Mcrae MD LAB BLOOD ORDERABLES Final Result Performing Organization Address [facility] de Phone Number [facility] [place] [address] * (ABNORMAL) Hepatic function panel (12/03/2024 8:17 PM CDT) Bilirubin, total 7.2(H) 0.1 - 1.2 mg/dL Bilirubin, direct 5.1(H) 0.1 - 0.3 mg/dL [facility] Protein, pl 6.5 6.5 - 8.5 g/dL [facility] Albumin 3.4(L) 3.5 - 5.0 g/dL [facility] Alk phos 331(H) 40 - 130 Units/L [facility] ALT 21 7 - 45 Units/L [facility] AST 31 10 - 45 Units/L [facility] Blood 12/03/2024 8:17 PM CDT 12/03/2024 8:29 PM CDT us Gayla Mcrae MD LAB BLOOD ORDERABLES Final Result [facility] Department [place] [address] * (ABNORMAL) Basic metabolic panel (12/03/2024 8:17 PM CDT) Sodium 139 135 - 145 mmol/L Potassium, pl 4.3 3.3 - 4.9 mmol/L [facility] Chloride 104 97 - 110 mmol/L [facility] CO2 24 22 - 32 mmol/L [facility] Anion gap 11 2 - 15 mmol/L [facility] BUN 13 6 - 25 mg/dL [facility] Creatinine 1.68(H) 0.60 - 1.10 mg/dL [facility] Glucose 91 70 - 199 mg/dL [facility] Comment: Interpretive Data Fasting glucose >/= 126 [...] interpretive data was last revised 2022. Calcium 9.4 8.5 - 10.3 mg/dL [facility] Blood 12/03/2024 8:17 PM CDT 12/03/2024 8:29 PM CDT Gayla Mcrae MD LAB BLOOD ORDERABLES Final Result Performing Organization Address [facility] de Phone Number [facility] Department [place] [address] * (ABNORMAL) eGFR (11/22/2024 11:15 PM CDT) Pathologist [facility] eGFR 45(L) >=60 mL/min/1. 73 m2 Comment: Interpretive Data [...] interpretive data was last reviewed 2021. Blood 11/22/2024 11:1 5 PM CDT 11/22/2024 11:53 PM CDT us Lovely Gómez MD LAB BLOOD ORDERABLES Final Resul t Performing Organization Address [facility] Co de Phone Number [facility] [place] [address] * (ABNORMAL) Differential, auto (11/22/2024 11:15 PM CDT) Pathologist [facility] Neutrophil abs 2.03 1.50 - 6.50 K/cumm Imm gran abs 0.03 0.00 - 0.10 K/cumm [facility] Lymphocyte abs 0.56(L) 0.80 - 3.30 K/cumm [facility] Monocyte abs 0.14(L) 0.20 - 0.80 K/cumm [facility] Eosinophil abs 0.13 0.00 - 0.50 K/cumm [facility] Basophil abs 0.00 0.00 - 0.10 K/cumm [facility] Neutrophil pct 70.3 % [facility] Comment: Interpretive Data Percent cell count reference ranges are not reported, since discordance with absolute values may lead to misinterpretation of CBC data. Current Interpretive Data was last revised on 2017. Imm gran pct 1.0 % [facility] Comment: Interpretive Data Percent cell count reference ranges are not reported, since discordance with absolute values may lead to misinterpretation of CBC data. Current Interpretive Data was last revised on 2017. Lymphocyte pct 19.4 % [facility] Comment: Interpretive Data Percent cell count reference ranges are not reported, since discordance with absolute values may lead to misinterpretation of CBC data. Current Interpretive Data was last revised on 2017. Monocyte pct 4.8 % [facility] Comment: Interpretive Data Percent cell count reference ranges are not reported, since discordance with absolute values may lead to misinterpretation of CBC data. Current Interpretive Data was last revised on 2017. Eosinophil pct 4.5 % [facility] Comment: Interpretive Data Percent cell count reference ranges are not reported, since discordance with absolute values may lead to misinterpretation of CBC data. Current Interpretive Data was last revised on 2017. Basophil pct 0.0 % [facility] Comment: Interpretive Data Percent cell count reference ranges are not reported, since discordance with absolute values may lead to misinterpretation of CBC data. Current Interpretive Data was last revised on 2017. Blood 11/22/2024 11:1 5 PM CDT 11/22/2024 11:55 PM CDT us Lovely Gómez MD LAB BLOOD ORDERABLES Final [facility]ul t [facility] Department [place] [address] * (ABNORMAL) CBC with auto differential (11/22/2024 11:15 PM CDT) WBC 2.89(L) 3.80 - 9.90 K/cumm Hgb 8.5(L) 11.9 - 15.5 g/dL [facility] Hct 24.4(L) 35.6 - 45.5 % [facility] Plt 120(L) 150 - 400 K/cumm [facility] MPV 12.1 9.1 - 12.3 fL [facility] RBC 2.17(L) 3.90 - 5.20 M/cumm [facility] MCV 112.4(H) 81.3 - 96.4 fL [facility] MCH 39.2(H) 27.1 - 33.3 pg [facility] MCHC 34.8 32.3 - 35.7 g/dL [facility] RDW CV 15.6(H) 11.1 - 14.9 % [facility] RDW SD 62.8(H) 35.7 - 48.1 fL [facility] NRBC abs 0.00 0.00 - 0.01 K/cumm [facility] Blood 11/22/2024 11:1 5 PM CDT 11/22/2024 11:55 PM CDT us Lovely Gómez MD LAB BLOOD ORDERABLES Final Resul t [facility] Department [place] [address] * Protime-INR (11/22/2024 11:15 PM CDT) Pathologist [facility] PT 12.9 10.2 - 13.5 sec INR 1.14 0.90 - 1.20 [facility] Comment: Interpretive data Oral anticoagulant therapeutic ranges: Venous thromboembolism prophylaxis or treatment: 2.0-3.0 CARDIOLOGY Standard range: 2.0-3.0 High-intensity range: 2.5-3.5 Refer to indication-specific guidelines for appropriate target ranges for prosthetic heart valve replacement. Current interpretive data was last revised on 2019. Blood 11/22/2024 11:1 5 PM CDT 11/23/2024 12:01 AM CDT us Lovely Gómez MD LAB BLOOD ORDERABLES Final Resul t [facility] Department [place] [address] * (ABNORMAL) Comprehensive metabolic panel (11/22/2024 11:15 PM CDT) Sodium 138 135 - 145 mmol/L Potassium, pl 3.9 3.3 - 4.9 mmol/L [facility] Chloride 107 97 - 110 mmol/L [facility] CO2 19(L) 22 - 32 mmol/L [facility] Anion gap 12 2 - 15 mmol/L [facility] BUN 16 6 - 25 mg/dL [facility] Creatinine 1.47(H) 0.60 - 1.10 mg/dL [facility] Glucose 92 70 - 199 mg/dL [facility] Comment: Interpretive Data Fasting glucose >/= 126 [...] 2022. Calcium 8.5 8.5 - 10.3 mg/dL [facility] Bilirubin, total 16.9(H) 0.1 - 1.2 mg/dL [facility] Protein, pl 4.8(L) 6.5 - 8.5 g/dL [facility] Comment:Icteric; result may be falsely decreased Albumin 2.4(L) 3.5 - 5.0 g/dL [facility] Alk phos 248(H) 40 - 130 Units/L [facility] ALT 14 7 - 45 Units/L [facility] AST 23 10 - 45 Units/L [facility] Blood 11/22/2024 11:1 5 PM CDT 11/22/2024 11:53 PM CDT Lovely Gómez MD LAB BLOOD ORDERABLES Final Resul t Performing Organization Address [facility] Co de Phone Number [facility] [place] [address] * Tacrolimus level trough (11/22/2024 9:28 AM CDT) Tacrolimus trough 3.9 ng/mL Comment: Interpretive Data Testing performed by liquid chromatography-tandem mass spectrometry. Therapeutic concentrations vary depending on type of transplanted organ and time elapsed since transplant. Typical trough concentrations range from 5-15 ng/mL. This test was developed and its performance characteristics determined by the [facility] consistent with CLIA requirements. This test has not been cleared or approved by the [place] Food and Drug administration. Current interpretive data last reviewed 2019. Blood 11/22/2024 9:28 AM CDT 11/22/2024 9:46 AM CDT Narrative [facility] - 11/22/2024 12:01 PM CDT TO BE DRAWN 1 HOUR PRIOR TO DOSE OF TACROLIMUS Lovely Gómez MD LAB BLOOD ORDERABLES Final Resul t Performing Organization Address [facility] Co de Phone Number [facility] Department [place] [address] * (ABNORMAL) eGFR (11/21/2024 11:18 PM CDT) eGFR 39(L) >=60 mL/min/1. 73 m2 Comment: Interpretive Data [...] interpretive data was last reviewed 2021. Blood 11/21/2024 11:1 8 PM CDT 11/22/2024 12:39 AM CDT us Lovely Gómez MD LAB BLOOD ORDERABLES Final Resul t [facility] Department [place] [address] * (ABNORMAL) Differential, auto (11/21/2024 11:18 PM CDT) Neutrophil abs 2.98 1.50 - 6.50 K/cumm Imm gran abs 0.05 0.00 - 0.10 K/cumm [facility] Lymphocyte abs 0.64(L) 0.80 - 3.30 K/cumm [facility] Monocyte abs 0.24 0.20 - 0.80 K/cumm [facility] Eosinophil abs 0.25 0.00 - 0.50 K/cumm [facility] Basophil abs 0.02 0.00 - 0.10 K/cumm [facility] Neutrophil pct 71.3 % [facility] Comment: Interpretive Data Percent cell count reference ranges are not reported, since discordance with absolute values may lead to misinterpretation of CBC data. Current Interpretive Data was last revised on 2017. Imm gran pct 1.2 % [facility] Comment: Interpretive Data Percent cell count reference ranges are not reported, since discordance with absolute values may lead to misinterpretation of CBC data. Current Interpretive Data was last revised on 2017. Lymphocyte pct 15.3 % [facility] Comment: Interpretive Data Percent cell count reference ranges are not reported, since discordance with absolute values may lead to misinterpretation of CBC data. Current Interpretive Data was last revised on 2017. Monocyte pct 5.7 % [facility] Comment: Interpretive Data Percent cell count reference ranges are not reported, since discordance with absolute values may lead to misinterpretation of CBC data. Current Interpretive Data was last revised on 2017. Eosinophil pct 6.0 % [facility] Comment: Interpretive Data Percent cell count reference ranges are not reported, since discordance with absolute values may lead to misinterpretation of CBC data. Current Interpretive Data was last revised on 2017. Basophil pct 0.5 % [facility] Comment: Interpretive Data Percent cell count reference ranges are not reported, since discordance with absolute values may lead to misinterpretation of CBC data. Current Interpretive Data was last revised on 2017. Blood 11/21/2024 11:1 8 PM CDT 11/22/2024 12:41 AM CDT us Lovely Gómez MD LAB BLOOD ORDERABLES Final Resul t [facility] Department [place] [address] * (ABNORMAL) CBC with auto differential (11/21/2024 11:18 PM CDT) WBC 4.18 3.80 - 9.90 K/cumm Hgb 10.9(L) 11.9 - 15.5 g/dL [facility] Hct 31.3(L) 35.6 - 45.5 % [facility] Plt 146(L) 150 - 400 K/cumm [facility] MPV 11.9 9.1 - 12.3 fL [facility] RBC 2.87(L) 3.90 - 5.20 M/cumm [facility] MCV 109.1(H) 81.3 - 96.4 fL [facility] MCH 38.0(H) 27.1 - 33.3 pg [facility] MCHC 34.8 32.3 - 35.7 g/dL [facility] RDW CV 15.1(H) 11.1 - 14.9 % [facility] RDW SD 60.5(H) 35.7 - 48.1 fL [facility] NRBC abs 0.02(H) 0.00 - 0.01 K/cumm [facility] Blood 11/21/2024 11:1 8 PM CDT 11/22/2024 12:41 AM CDT Lovely Gómez MD LAB BLOOD ORDERABLES Final Resul t Performing Organization Address [facility] de Phone Number [facility] Department [place] [address] * Protime-INR (11/21/2024 11:18 PM CDT) PT 12.8 10.2 - 13.5 sec Comment:Markedly icteric, ma y compromise accuracy of result. INR 1.14 0.90 - 1.20 [facility] Comment: Markedly icteric, may compromise accuracy of result. Interpretive data Oral anticoagulant therapeutic ranges: Venous thromboembolism prophylaxis or treatment: 2.0-3.0 CARDIOLOGY Standard range: 2.0-3.0 High-intensity range: 2.5-3.5 Refer to indication-specific guidelines for appropriate target ranges for prosthetic heart valve replacement. Current interpretive data was last revised on 2019. Blood 11/21/2024 11:1 8 PM CDT 11/22/2024 12:49 AM CDT Lovely Gómez MD LAB BLOOD ORDERABLES Final Resul t Performing Organization Address [facility] de Phone Number [facility] Department [place] [address] * (ABNORMAL) Comprehensive metabolic panel (11/21/2024 11:18 PM CDT) Sodium 137 135 - 145 mmol/L Potassium, pl 4.0 3.3 - 4.9 mmol/L [facility] Chloride 104 97 - 110 mmol/L [facility] CO2 21(L) 22 - 32 mmol/L [facility] Anion gap 12 2 - 15 mmol/L [facility] BUN 22 6 - 25 mg/dL [facility] Creatinine 1.68(H) 0.60 - 1.10 mg/dL [facility] Glucose 92 70 - 199 mg/dL [facility] Comment: Interpretive Data Fasting glucose >/= 126 [...] 2022. Calcium 8.9 8.5 - 10.3 mg/dL [facility] Bilirubin, total 21.6(H) 0.1 - 1.2 mg/dL [facility] Protein, pl 6.1(L) 6.5 - 8.5 g/dL [facility] Comment:Icteric; result may be falsely decreased Albumin 3.0(L) 3.5 - 5.0 g/dL [facility] Alk phos 351(H) 40 - 130 Units/L [facility] ALT 14 7 - 45 Units/L [facility] AST 32 10 - 45 Units/L [facility] Blood 11/21/2024 11:1 8 PM CDT 11/22/2024 12:39 AM CDT us Lovely Gómez MD LAB BLOOD ORDERABLES Final Resul t [facility] Department [place] [address] * TRANSTHORACIC ECHO (TTE) COMPLETE W DOPPLER/CF WO CONTRAST (11/21/2024 3:04 PM CDT) EF Mod BP 77 % CONS SCIMAGE Anatomical Region Laterality Modality Ultrasound 11/21/2024 2:18 PM CDT Narrative 11/21/2024 3:40 PM CDT [facility] [place] [address] Transthoracic Echocardiographic Report Patient Name: MISHA BROWNE A : 1980 (44y 1m) Sex: F Study Date: 11/21/2024 02:18:21 PM Ht(Inch): 64 Wt(Lb): 151.02 BSA: 1.76 Senior Java Engineer: Scarlett Otoole RDCS Location: [id number] Order Provider: ANGIE DEE Heart Rate: 62 BMI: 25.92 BP: 149 / 72 Ref Provider: ANGIE DEE PROCEDURES: Echocardiographic Report: Transthoracic complete echo with strain imaging, 2D, spectral and tissue Doppler, color flow Doppler, M-mode. INDICATIONS: Dyspnea. CONCLUSIONS: 1. Normal left ventricular size based on volume index. Concentric LV hypertrophy. There is hyperdynamic left ventricular systolic function. The Ejection Fraction (Johnson's) is measured at 77 %. Cannot determine diastolic function or LA pressure. The average global longitudinal strain is normal. 2. Normal right ventricular size. Normal right ventricular systolic function. ATTESTATION: I have personally reviewed and interpreted this study without fellow or resident. - DISCLAIMER: The study images and the final report will be retained in the patient chart by the [facility] Laboratory for the legally required time period. This chart constitutes the legal record of any testing performed. FINDINGS: Left Ventricle: Normal left ventricular size based on volume index. Concentric LV hypertrophy. There is hyperdynamic left ventricular systolic function. The Ejection Fraction (Johnson's) is measured at 77 %. Cannot determine diastolic function or LA pressure. The average global longitudinal strain is normal. The LV global strain is: -20.0 %. Increased LV Stroke Voluime. Right Ventricle: Normal right ventricular size. Normal right ventricular systolic function. Left Atrium: Severely dilated left atrium. Right Atrium: The right atrium is normal in size. Mitral Valve: Normal mitral valve structure. No mitral regurgitation. No stenosis present. Aortic Valve: Normal trileaflet aortic valve. Mild aortic valve regurgitation. Aortic valve dimensionless index is 0.91. Tricuspid Valve: Normal tricuspid valve structure. No tricuspid regurgitation. No tricuspid valve stenosis. Pulmonic Valve: Normal Pulmonic Valve Structure. Mild pulmonic regurgitation. Pericardium: Normal pericardium without pericardial effusion. Aorta: Normal aortic root size at sinuses of Valsalva. Normal aortic root size when indexed. Dilation of the ascending aorta when indexed. IVC: The IVC was <2.1 cm and collapsibility <50%. (est. RA pressure 6-10 mmHg). PASP: Normal estimated pulmonary artery systolic pressure. Rhythm: Normal Sinus rhythm was seen during the study. MEASUREMENTS: 2D/MM Value Range Doppler Value Range LVIDd 2D 4.61 cm [ 3.80 - 5.20 ] AV Peak Abdiel 1.5 m/s [ 1.0 - 1.7 ] LVIDs 2D 2.48 cm [ 2.20 - 3.50 ] AV Peak PG 9.00 mmHg IVSd 2D 1.26 cm [ 0.60 - 0.90 ] AV Mean PG 5 mmHg LVPWd 2D 1.19 cm [ 0.60 - 0.90 ] AV VTI 32.2 cm LV Thickness Ratio 1.1 LVOT Peak Abdiel 1.5 m/s [ 0.7 - 1.1 ] LV FS 2D 46.17 % [ 27.00 - 45.00 ] LVOT Peak PG 9.00 mmHg LV Mass 2D 215.00 g LVOT Mean PG 5 mmHg LV Mass Index 2D 122.25 g/m2 LVOT VTI 29.4 cm RWT 0.52 LVOT Diam 2.30 cm EDV Mod BP 89.05 ml [ 46.00 - 106.00 ] BIBIANA VTI 3.79 cm2 LV EDV Index 50.63 ml/m2 LVOT/AV VTI 0.91 - Dimensionless index (DVI) ESV Mod BP 20.81 ml [ 14.00 - 42.00 ] AI Peak Abdiel 4.7 m/s EF Mod BP 77 % [ 54 - 74 ] AI Peak PG 88 mmHg LV GLS -20.0 % [ -25.0 - -18.0 ] AI Decel Time 1723.86 sec LA Length 4C 6.72 cm AI Decel Placer 2.74 m/s2 LA Length 2C 6.51 cm AI PHT 499.92 msec LA Volume BP 90.09 ml MV E Peak Abdiel 0.9 m/s [ 0.6 - 1.3 ] LA Volume Index 51.22 ml/m2 [ 16.00 - 34.00 ] MV A Peak Abdiel 1.0 m/s [ 1.0 - 1.2 ] RV Base Dimen 2D 3.2 cm [ 2.5 - 4.2 ] MV E/A 0.9 ratio [ 0.8 - 1.5 ] TAPSE 3.02 cm [ 1.71 - 5.00 ] MV Decel Time 207.50 msec [ 104.00 - 258.00 ] RA Volume 29.68 ml Med E` Abdiel 5.6 cm/sec [ 8.0 - 25.0 ] RA Volume Index 16.88 ml/m2 Lat E` Abdiel 6.2 cm/sec [ 10.0 - 25.0 ] IVC Diam 1.89 cm Average E/E` 15.25 IVC Collapse 36 % RV S` 15.33 cm/sec AoR Diam 2D 3.29 cm [ 2.70 - 3.70 ] PV Peak Abdiel 0.6 m/s [ 0.4 - 0.8 ] Ao Root Index 1.87 cm/m2 [ 1.00 - 2.00 ] PV Peak PG 1.44 mmHg Asc Ao Diam 2D 3.56 cm Asc Ao Index 2.02 cm/m2 Electronically Signed By: Derrick Lea MD 11/21/2024 3:39:18 PM CDT Procedure Note Derrick Lea MD - 11/21/2024 [facility] [place] [address] Transthoracic Echocardiographic Report Patient Name: MISHA BROWNE A : 1980 (44y 1m) Sex: F Study Date: 11/21/2024 02:18:21 PM Ht(Inch): 64 Wt(Lb): 151.02 BSA: 1.76 Senior Java Engineer: Scarlett Otoole RDCS Location: [id number] Order Provider:ANGIE DEE Heart Rate: 62 BMI: 25.92 BP: 149 / 72 Ref Provider: ANGIE DEE PROCEDURES: Echocardiographic Report: Transthoracic complete echo with strain imaging,2D, spectral and tissue Doppler, color flow Doppler, M-mode. INDICATIONS: Dyspnea. CONCLUSIONS: 1. Normal left ventricular size based on volume index. Concentric LVhypertrophy. There is hyperdynamic left ventricular systolic function. The Ejection Fraction(Johnson's) is measured at 77 %. Cannot determine diastolic function or LA pressure. Theaverage global longitudinal strain is normal. 2. Normal right ventricular size. Normal right ventricular systolicfunction. ATTESTATION: I have personally reviewed and interpreted this study without fellow orresident. - DISCLAIMER: The study images and the final report will be retained in the patientchart by the Echo Laboratory for the legally required time period. This chart constitutesthe legal record of any testing performed. FINDINGS: Left Ventricle: Normal left ventricular size based on volume index.Concentric LV hypertrophy. There is hyperdynamic left ventricular systolic function. TheEjection Fraction (Johnson's) is measured at 77 %. Cannot determine diastolicfunction or LA pressure. The average global longitudinal strain is normal. The LV globalstrain is: -20.0 %. Increased LV Stroke Voluime. Right Ventricle: Normal right ventricular size. Normal right ventricularsystolic function. Left Atrium: Severely dilated left atrium. Right Atrium: The right atrium is normal in size. Mitral Valve: Normal mitral valve structure. No mitral regurgitation. Nostenosis present. Aortic Valve: Normal trileaflet aortic valve. Mild aortic valveregurgitation. Aortic valve dimensionless index is 0.91. Tricuspid Valve: Normal tricuspid valve structure. No tricuspidregurgitation. No tricuspid valve stenosis. Pulmonic Valve: Normal Pulmonic Valve Structure. Mild pulmonicregurgitation. Pericardium: Normal pericardium without pericardial effusion. Aorta: Normal aortic root size at sinuses of Valsalva. Normal aortic rootsize when indexed. Dilation of the ascending aorta when indexed. IVC: The IVC was <2.1 cm and collapsibility <50%. (est. RA pressure 6-10mmHg). PASP: Normal estimated pulmonary artery systolic pressure. Rhythm: Normal Sinus rhythm was seen during the study. MEASUREMENTS: 2D/MM Value Range DopplerValue Range LVIDd 2D 4.61 cm [ 3.80 - 5.20 ] AV Peak Vel1.5 m/s [ 1.0 - 1.7 ] LVIDs 2D 2.48 cm [ 2.20 - 3.50 ] AV Peak PG9.00 mmHg IVSd 2D 1.26 cm [ 0.60 - 0.90 ] AV Mean PG5 mmHg LVPWd 2D 1.19 cm [ 0.60 - 0.90 ] AV VTI32.2 cm LV Thickness Ratio 1.1 LVOT Peak Vel1.5 m/s [ 0.7 - 1.1 ] LV FS 2D 46.17 % [ 27.00 - 45.00 ] LVOT Peak PG9.00 mmHg LV Mass 2D 215.00 g LVOT Mean PG5 mmHg LV Mass Index 2D 122.25 g/m2 LVOT VTI29.4 cm RWT 0.52 LVOT Diam2.30 cm EDV Mod BP 89.05 ml [ 46.00 - 106.00 ] BIBIANA VTI3.79 cm2 LV EDV Index 50.63 ml/m2 LVOT/AV VTI0.91 - Dimensionless index (DVI) ESV Mod BP 20.81 ml [ 14.00 - 42.00 ] AI Peak Vel4.7 m/s EF Mod BP 77 % [ 54 - 74 ] AI Peak PG88 mmHg LV GLS -20.0 % [ -25.0 - -18.0 ] AI Decel Ghtf1086.86 sec LA Length 4C 6.72 cm AI Decel Slope2.74 m/s2 LA Length 2C 6.51 cm AI MEP612.92 msec LA Volume BP 90.09 ml MV E Peak Vel0.9 m/s [ 0.6 - 1.3 ] LA Volume Index 51.22 ml/m2 [ 16.00 - 34.00 ] MV A Peak Vel1.0 m/s [ 1.0 - 1.2 ] RV Base Dimen 2D 3.2 cm [ 2.5 - 4.2 ] MV E/A0.9 ratio [ 0.8 - 1.5 ] TAPSE 3.02 cm [ 1.71 - 5.00 ] MV Decel Fwwv990.50 msec [ 104.00 - 258.00 ] RA Volume 29.68 ml Med E` Vel5.6 cm/sec [ 8.0 - 25.0 ] RA Volume Index 16.88 ml/m2 Lat E` Vel6.2 cm/sec [ 10.0 - 25.0 ] IVC Diam 1.89 cm Average E/E`15.25 IVC Collapse 36 % RV S`15.33 cm/sec AoR Diam 2D 3.29 cm [ 2.70 - 3.70 ] PV Peak Vel0.6 m/s [ 0.4 - 0.8 ] Ao Root Index 1.87 cm/m2 [ 1.00 - 2.00 ] PV Peak PG1.44 mmHg Asc Ao Diam 2D3.56 cm Asc Ao Index2.02 cm/m2 Electronically Signed By: Derrick Lea MD 11/21/2024 3:39:18 PM CDT Angie Dee MD CV ECHO PROCEDURES Fi nal Result * Tacrolimus level trough (11/21/2024 10:54 AM CDT) Tacrolimus trough 3.9 ng/mL Comment: Interpretive Data Testing performed by liquid chromatography-tandem mass spectrometry. Therapeutic concentrations vary depending on type of transplanted organ and time elapsed since transplant. Typical trough concentrations range from 5-15 ng/mL. This test was developed and its performance characteristics determined by the [facility] consistent with CLIA requirements. This test has not been cleared or approved by the US Food and Drug administration. Current interpretive data last reviewed 2019. Blood 11/21/2024 10:5 4 AM CDT 11/21/2024 11:07 AM CDT Narrative [facility] - 11/21/2024 2:57 PM CDT TO BE DRAWN 1 HOUR PRIOR TO DOSE OF TACROLIMUS us Lovely Gómez MD LAB BLOOD ORDERABLES Final Resul t [facility] Department [place] [address] * (ABNORMAL) CBC without differential (11/21/2024 10:54 AM CDT) WBC 3.70(L) 3.80 - 9.90 K/cumm Hgb 10.7(L) 11.9 - 15.5 g/dL [facility] Hct 30.5(L) 35.6 - 45.5 % [facility] Plt 153 150 - 400 K/cumm [facility] MPV 11.1 9.1 - 12.3 fL [facility] RBC 2.78(L) 3.90 - 5.20 M/cumm [facility] MCV 109.7(H) 81.3 - 96.4 fL [facility] MCH 38.5(H) 27.1 - 33.3 pg [facility] MCHC 35.1 32.3 - 35.7 g/dL [facility] RDW CV 15.0(H) 11.1 - 14.9 % [facility] RDW SD 60.2(H) 35.7 - 48.1 fL [facility] NRBC abs 0.02(H) 0.00 - 0.01 K/cumm [facility] Blood 11/21/2024 10:5 4 AM CDT 11/21/2024 11:07 AM CDT Narrative [facility] - 11/21/2024 11:14 AM CDT 6 Hours post procedure. us Lianne EDMOND LAB BLOOD ORDERABLES Final Result [facility] Department [place] [address] * US Guided Biopsy Liver (11/21/2024 7:39 AM CDT) Anatomical Region Laterality Modality Leg N/A Radio Fluoroscop y 11/21/2024 7:56 AM CDT Impressions 11/21/2024 12:41 PM CDT 1. Successful ultrasound-guided core needle biopsy of the right hemiliver (random). 2. Please see separate Surgical Pathology results for final interpretation. Dictated by: Daquan Jean Baptiste MD The radiology attending physician has personally reviewed this study, and had reviewed and/or edited this written report and agrees with it. 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 The patient presented with signs of liver injury. Diagnostic radiology was consulted for ultrasound-guided random percutaneous liver biopsy. COMPARISON: 11/17/2024 FINDINGS: Preprocedure limited ultrasound of the right hemiliver demonstrated an appropriate target for random liver biopsy. TECHNIQUE: The procedure for ultrasound-guided core biopsy was explained to and discussed with the patient. Risks were explained to include, but not be limited to, hemorrhage, infection, injury to adjacent organs, non-diagnostic specimen and adverse reaction to medications administered. The patient voiced understanding and wished to proceed and signed the consent form. PROCEDURAL SEDATION: Procedural sedation was administered under the attending physician's direction and continuous monitoring by a trained nurse specialist who was independent from those actually performing the procedure. Total monitored sedation time was 12 minutes. CORE BIOPSY: An appropriate site was localized for core biopsy in the periphery of the right hemiliver. The patient's overlying skin was prepped and draped in the usual sterile fashion. Local anesthesia was achieved via subcutaneous and deep administration with 10 mL of Lidocaine 1%. Under realtime ultrasound guidance, a single pass was made with an 18 gauge BioPince core biopsy needle, 3 cm throw, with the use of a 17 gauge introducer needle. The core specimen was placed in formalin and submitted to the sort worker service for delivery to Surgical Pathology. The biopsy tract was embolized with Gelfoam pledgets. Postprocedure ultrasound over the biopsy site and tract demonstrated a trace amount of perihepatic fluid from lidocaine injection without a significant hematoma. The patient's skin was cleaned and dressed. The patient tolerated the entire procedure well without immediate complications. Dr. Soto Mena, the attending radiologist, was present from the beginning to the end of the procedure. Dr. Daquan Jean Baptiste and Dr. Soto Mena performed the biopsy. 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 The patient presented with signs of liver injury. Diagnostic radiology was consulted for ultrasound-guided random percutaneous liver biopsy. COMPARISON: 11/17/2024 FINDINGS: Preprocedure limited ultrasound of the right hemiliver demonstrated an appropriate target for random liver biopsy. TECHNIQUE: The procedure for ultrasound-guided core biopsy was explained to and discussed with the patient. Risks were explained to include, but not be limited to, hemorrhage, infection, injury to adjacent organs, non-diagnostic specimen and adverse reaction to medications administered. The patient voiced understanding and wished to proceed and signed the consent form. PROCEDURAL SEDATION: Procedural sedation was administered under the attending physician's direction and continuous monitoring by a trained nurse specialist who was independent from those actually performing the procedure. Total monitored sedation time was 12 minutes. CORE BIOPSY: An appropriate site was localized for core biopsy in the periphery of the right hemiliver. The patient's overlying skin was prepped and draped in the usual sterile fashion. Local anesthesia was achieved via subcutaneous and deep administration with 10 mL of Lidocaine 1%. Under realtime ultrasound guidance, a single pass was made with an 18 gauge BioPince core biopsy needle, 3 cm throw, with the use of a 17 gauge introducer needle. The core specimen was placed in formalin and submitted to the sort worker service for delivery to Surgical Pathology. The biopsy tract was embolized with Gelfoam pledgets. Postprocedure ultrasound over the biopsy site and tract demonstrated a trace amount of perihepatic fluid from lidocaine injection without a significant hematoma. The patient's skin was cleaned and dressed. The patient tolerated the entire procedure well without immediate complications. Dr. Soto Mena, the attending radiologist, was present from the beginning to the end of the procedure. Dr. Daquan Jean Baptiste and Dr. Soto Mena performed the biopsy. IMPRESSION: 1. Successful ultrasound-guided core needle biopsy of the right hemiliver (random). 2. Please see separate Surgical Pathology results for final interpretation. Dictated by: Daquan Jean Baptiste MD The radiology attending physician has personally reviewed this study, and had reviewed and/or edited this written report and agrees with it. Electronically signed by: Soto Mena M.D., Ph.D Angie Dee MD IMG US PROCEDURES Fin al Result * Surgical pathology (11/21/2024 7:35 AM CDT) Tissue (Liver, Biopsy, Needle Medical) 11/21/2024 7:35 AM CDT Narrative [facility]OLOGY [facility] - 11/27/2024 6:41 PM CDT EPIC results best viewed via link to PDF [facility] Dea Mcgarry Laboratory of Surgical Pathology [place] [address] Note to Patients: This report may contain [...] and explain the details. SURGICAL PATHOLOGY REPORT FINAL Patient Name: MISHA BROWNEFelix Gender: F : 1980 (Age: 44) Address: [address] [place] [id number] Hospital #: [id number] Taken:11/21/2024 Received:11/21/2024 Reported: 11/27/2024 [facility] Inpatient Service: Medical Location: Physician(s): Lucero Estrella NP Cheryl R. McDonough, M.D. Diagnosis: Liver, allograft, approximately 4.5 years post-retransplantation, random, ultrasound-guided core needle biopsy - Extensive acute and chronic cholestasis, with patchy portal sclerosis, focal bile duct injury and proliferation, mild sinusoidal dilation, and focal hepatocellular dropout (see comment) - Patchy portal and lobular mononuclear inflammation, indeterminate for acute cellular rejection - Trichrome and reticulin stains show periportal fibrosis (stage 2 out of 4) - Iron stain reveals mild iron deposition in hepatocytes - PAS-D stain reveals no intrahepatocellular globules - CMV immunostain is negative - See comment Comment: The clinical history of liver transplantation x2 (1992 due to biliary atresia, 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 The findings in the biopsy are complex and not entirely specific, and initial considerations for the differential diagnosis for the etiology of the portal sclerosis and bile duct injury included processes related to portal vein flow issues seen on imaging (thrombus seen on right portal vein, and diminished flow in left portal vein) and/or a superimposed element of ischemic cholangiopathy. However, the Inpatient Hepatology team subsequently identified azathioprine, which the patient has been taking since 2023, as a likely candidate for drug-induced liver injury, as it is well known to cause significant liver injury in a couple of different patterns over the course of months after initiation of treatment, including acute cholestatic injury and vanishing duct syndrome, but also sinusoidal dilation and sinusoidal and central vein injury leading to nodular regenerative hyperplasia. The reported injury profile(s) of azathioprine are reflected at least partially in the findings of the current biopsy; however, clinical correlation and follow up of laboratory values after cessation of the suspected medication is recommended to determine whether it is the cause of the liver injury. 11/22/2024 12:58 By this signature, I attest that the above diagnosis is based upon my personal examination of the slides(and/or other material indicated in the diagnosis). Anjel Paz M.D., Ph.D. Report Electronically Reviewed and Signed Out By Anjel Paz M.D., Ph.D. 11/27/2024 18:41:08 Diagnosis Comment Preliminary findings were shown and discussed with Dr. Sandy Anne and the Inpatient Hepatology team on 11/21/2024 at 4:05pm via Zoom. Select slides were shown in intradepartmental consultation to Dr. Jose Luis Mcnair of the section of Liver/GI pathology, and she agrees with the histologic assessment and differential diagnosis. Microscopic Description and Comment: The biopsy consists of a single core of hepatic parenchyma with a sufficient number of portal tracts present for evaluation. There is overall preserved lobular architecture. Nodular regenerative hyperplasia is absent. 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 Some of these portal tracts also show bile ductular proliferation and expansion of the portal tract by fibrous stroma. One portal tract shows possible bile duct obliteration. There is increased predominantly lymphocytic inflammation. No portal vein thrombus is noted. Arteriole profiles are mildly increased in number in these portal tracts. The portal tracts contain lymphocytic inflammation. There is no significant interface activity not associated with bile duct proliferation. The lobules show mild, diffuse Zone 3 sinusoidal dilation, with focal hepatocellular dropout in Zone 3. No significant steatosis or hepatocyte ballooning is evident. Canalicular and hepatocellular cholestasis is present. Mild lobular inflammation is present. Central veins are histologically unremarkable. A panel of special stains and immunostains (with appropriately staining controls) were performed on block A1 to further characterize the liver parenchyma. Trichrome/reticulin stains show patchy periportal fibrosis in the areas of biliary proliferation. Iron stain shows mild iron accumulation in hepatocytes. PAS-D stain shows no intrahepatocellular diastase-resistant globules in hepatocytes. CMV immunostain is negative. CK7 shows a defined area of extensive biliary metaplasia on one end of the liver tissue core, corresponding to the portal tracts with more bile ductular reaction and periportal fibrosis. Copper is positive, confirming chronic cholestasis. Lenora Yee M.D., P.h.D. History: The patient is a 44-year-old woman presenting with a history of biliary atresia; cholestatic liver disease; cirrhosis of transplant and liver; history of liver transplant, 1992 and retransplant in 2020. Operative procedure: Random liver biopsy. Specimen(s) Received: A: Random liver transplant core biopsy Gross Description: Received in formalin, labeled with the patient s identifiers and random liver transplant biopsy and consists of a single brown and yellow core(s) of soft tissue measuring 2.7 cm in length x 0.1 cm in diameter. Labeled A1. Jar 0. sxst/11/21/2024 10:33 PA(s): Brielle Rojas By this signature, I attest that the above diagnosis is based upon my personal examination of the slides(and/or other material). Addenda/Procedures The performance characteristics of some immunohistochemical stains, fluorescence in-situ hybridization tests and immunophenotyping by flow cytometry cited in this report (if any) were determined by the Surgical Pathology and Flow Cytometry Departments at [facility] as part of an ongoing research associate quality control qc program and in compliance with federally mandated regulations drawn from the Clinical Laboratory Improvement Act of 1988 (CLIA '88). Some of these tests rely on the use of analyte specific reagents and are subject to specific labeling requirements by the US Food and Drug Administration. Such diagnostic tests may only be performed in a facility that is certified by the Department of Health and Human Services as a high complexity laboratory under CLIA '88. The FDA has determined that such clearance or approval is not necessary. This test is used for clinical purposes. It should not be regarded as investigational or for research. Nevertheless, federal rules concerning the medical use of analyte specific reagents require that the following disclaimer be attached to the report: This test was developed and its performance characteristics determined by the Surgical Pathology and Flow Cytometry Departments of [facility]. It has not been cleared or approved by the U. S. Food and Drug Administration. IMAGES AND SCANNED DOCUMENTS, IF INCLUDED, ONLY VIEWABLE IN PDF VERSION OF REPORT Angie Dee MD LAB PATHOLOGY ORDERAB LES Final Result PATHOLOGY [facility] 3rd Floor [place], [place] [phone] * (ABNORMAL) eGFR (11/20/2024 11:21 PM CDT) Pathologist [facility] eGFR 44(L) >=60 mL/min/1. 73 m2 Comment: Interpretive Data [...] interpretive data was last reviewed 2021. Blood 11/20/2024 11:2 1 PM CDT 11/21/2024 12:09 AM CDT us Lovely Gómez MD LAB BLOOD ORDERABLES Final Resul t [facility] Department [place] [address] * (ABNORMAL) Differential, auto (11/20/2024 11:21 PM CDT) Pathologist [facility] Neutrophil abs 2.52 1.50 - 6.50 K/cumm Imm gran abs 0.05 0.00 - 0.10 K/cumm [facility] Lymphocyte abs 0.72(L) 0.80 - 3.30 K/cumm [facility] Monocyte abs 0.21 0.20 - 0.80 K/cumm [facility] Eosinophil abs 0.15 0.00 - 0.50 K/cumm [facility] Basophil abs 0.02 0.00 - 0.10 K/cumm [facility] Neutrophil pct 68.7 % [facility] Comment: Interpretive Data Percent cell count reference ranges are not reported, since discordance with absolute values may lead to misinterpretation of CBC data. Current Interpretive Data was last revised on 2017. Imm gran pct 1.4 % [facility] Comment: Interpretive Data Percent cell count reference ranges are not reported, since discordance with absolute values may lead to misinterpretation of CBC data. Current Interpretive Data was last revised on 2017. Lymphocyte pct 19.6 % [facility] Comment: Interpretive Data Percent cell count reference ranges are not reported, since discordance with absolute values may lead to misinterpretation of CBC data. Current Interpretive Data was last revised on 2017. Monocyte pct 5.7 % [facility] Comment: Interpretive Data Percent cell count reference ranges are not reported, since discordance with absolute values may lead to misinterpretation of CBC data. Current Interpretive Data was last revised on 2017. Eosinophil pct 4.1 % [facility] Comment: Interpretive Data Percent cell count reference ranges are not reported, since discordance with absolute values may lead to misinterpretation of CBC data. Current Interpretive Data was last revised on 2017. Basophil pct 0.5 % [facility] Comment: Interpretive Data Percent cell count reference ranges are not reported, since discordance with absolute values may lead to misinterpretation of CBC data. Current Interpretive Data was last revised on 2017. Blood 11/20/2024 11:2 1 PM CDT 11/21/2024 12:09 AM CDT us Lovely Gómez MD LAB BLOOD ORDERABLES Final Resul t [facility] Department of Laboratories [place], [place] [id number] * (ABNORMAL) CBC with auto differential (11/20/2024 11:21 PM CDT) WBC 3.67(L) 3.80 - 9.90 K/cumm Hgb 10.5(L) 11.9 - 15.5 g/dL [facility] Hct 29.6(L) 35.6 - 45.5 % [facility] Plt 148(L) 150 - 400 K/cumm [facility] MPV 12.0 9.1 - 12.3 fL [facility] RBC 2.73(L) 3.90 - 5.20 M/cumm [facility] MCV 108.4(H) 81.3 - 96.4 fL [facility] MCH 38.5(H) 27.1 - 33.3 pg [facility] MCHC 35.5 32.3 - 35.7 g/dL [facility] RDW CV 14.9 11.1 - 14.9 % [facility] RDW SD 58.9(H) 35.7 - 48.1 fL [facility] NRBC abs 0.00 0.00 - 0.01 K/cumm [facility] Blood 11/20/2024 11:2 1 PM CDT 11/21/2024 12:09 AM CDT Lovely Gómez MD LAB BLOOD ORDERABLES Final Resul t Performing Organization Address [facility]/ZIP Co de Phone Number [facility] Department [place] [employer] [place] [address] * aPTT (11/20/2024 11:21 PM CDT) aPTT 29 26 - 38 sec Comment: Markedly icteric, may compromise accuracy of result. Interpretive Data Heparin therapeutic range: 66.0 - 100.0 seconds. Range based on correlation with therapeutic heparin activity range of 0.3 - 0.7 Units/mL. Current interpretive data was last revised on 2022. Blood 11/20/2024 11:2 1 PM CDT 11/21/2024 12:25 AM CDT Angie Dee MD LAB BLOOD ORDERABLES Final Result Performing Organization Address City/[facility]/ZIP Co de Phone Number [facility] Department [place] [address] * Protime-INR (11/20/2024 11:21 PM CDT) PT 12.6 10.2 - 13.5 sec INR 1.12 0.90 - 1.20 [facility] Comment: Interpretive data Oral anticoagulant therapeutic ranges: Venous thromboembolism prophylaxis or treatment: 2.0-3.0 CARDIOLOGY Standard range: 2.0-3.0 High-intensity range: 2.5-3.5 Refer to indication-specific guidelines for appropriate target ranges for prosthetic heart valve replacement. Current interpretive data was last revised on 2019. Blood 11/20/2024 11:2 1 PM CDT 11/21/2024 12:25 AM CDT us Lovely Gómez MD LAB BLOOD ORDERABLES Final Resul t [facility] Department [place] [address] * (ABNORMAL) Comprehensive metabolic panel (11/20/2024 11:21 PM CDT) Sodium 142 135 - 145 mmol/L Potassium, pl 3.6 3.3 - 4.9 mmol/L [facility] Chloride 107 97 - 110 mmol/L [facility] CO2 25 22 - 32 mmol/L [facility] Anion gap 10 2 - 15 mmol/L [facility] BUN 19 6 - 25 mg/dL [facility] Creatinine 1.50(H) 0.60 - 1.10 mg/dL [facility] Glucose 98 70 - 199 mg/dL [facility] Comment: Interpretive Data Fasting glucose >/= 126 [...] Calcium 8.8 8.5 - 10.3 mg/dL [facility] Bilirubin, total 19.6(H) 0.1 - 1.2 mg/dL [facility] Protein, pl 6.2(L) 6.5 - 8.5 g/dL [facility] Comment:Icteric; result may be falsely decreased Albumin 2.9(L) 3.5 - 5.0 g/dL [facility] Alk phos 355(H) 40 - 130 Units/L [facility] ALT 18 7 - 45 Units/L [facility] AST 29 10 - 45 Units/L [facility] Blood 11/20/2024 11:2 1 PM CDT 11/21/2024 12:09 AM CDT Lovely Gómez MD LAB BLOOD ORDERABLES Final Resul t Performing Organization Address [facility] de Phone Number [facility] Department [place] [employer] [place] [address] * Tacrolimus level trough (11/20/2024 6:30 AM CDT) Tacrolimus trough 4.8 ng/mL Comment: Interpretive Data Testing performed by liquid chromatography-tandem mass spectrometry. Therapeutic concentrations vary depending on type of transplanted organ and time elapsed since transplant. Typical trough concentrations range from 5-15 ng/mL. This test was developed and its performance characteristics determined by the [facility] consistent with CLIA requirements. This test has not been cleared or approved by the US Food and Drug administration. Current interpretive data last reviewed 2019. Blood 11/20/2024 6:30 AM CDT 11/20/2024 6:35 AM CDT Narrative [facility] - 11/20/2024 10:24 AM CDT TO BE DRAWN 1 HOUR PRIOR TO DOSE OF TACROLIMUS Lovely Gómez MD LAB BLOOD ORDERABLES Final Resul t Performing Organization Address [facility] Co de Phone Number [facility] Department [place] [address] * (ABNORMAL) eGFR (11/20/2024 12:34 AM CDT) Pathologist [facility] eGFR 52(L) >=60 mL/min/1. 73 m2 Comment: Interpretive Data [...] interpretive data was last reviewed 2021. Blood 11/20/2024 12:3 4 AM CDT 11/20/2024 1:05 AM CDT us Lovely Gómez MD LAB BLOOD ORDERABLES Final Resul t [facility] Department [place] [address] * (ABNORMAL) Differential, auto (11/20/2024 12:34 AM CDT) Pathologist [facility] Neutrophil abs 2.48 1.50 - 6.50 K/cumm Imm gran abs 0.06 0.00 - 0.10 K/cumm [facility] Lymphocyte abs 0.79(L) 0.80 - 3.30 K/cumm [facility] Monocyte abs 0.22 0.20 - 0.80 K/cumm [facility] Eosinophil abs 0.16 0.00 - 0.50 K/cumm [facility] Basophil abs 0.01 0.00 - 0.10 K/cumm [facility] Neutrophil pct 66.7 % [facility] Comment: Interpretive Data Percent cell count reference ranges are not reported, since discordance with absolute values may lead to misinterpretation of CBC data. Current Interpretive Data was last revised on 2017. Imm gran pct 1.6 % [facility] Comment: Interpretive Data Percent cell count reference ranges are not reported, since discordance with absolute values may lead to misinterpretation of CBC data. Current Interpretive Data was last revised on 2017. Lymphocyte pct 21.2 % [facility] Comment: Interpretive Data Percent cell count reference ranges are not reported, since discordance with absolute values may lead to misinterpretation of CBC data. Current Interpretive Data was last revised on 2017. Monocyte pct 5.9 % [facility] Comment: Interpretive Data Percent cell count reference ranges are not reported, since discordance with absolute values may lead to misinterpretation of CBC data. Current Interpretive Data was last revised on 2017. Eosinophil pct 4.3 % [facility] Comment: Interpretive Data Percent cell count reference ranges are not reported, since discordance with absolute values may lead to misinterpretation of CBC data. Current Interpretive Data was last revised on 2017. Basophil pct 0.3 % [facility] Comment: Interpretive Data Percent cell count reference ranges are not reported, since discordance with absolute values may lead to misinterpretation of CBC data. Current Interpretive Data was last revised on 2017. Blood 11/20/2024 12:3 4 AM CDT 11/20/2024 1:05 AM CDT us Lovely Gómez MD LAB BLOOD ORDERABLES Final Resul t [facility] Department of Laboratories [place], [place] [id number] * (ABNORMAL) CBC with auto differential (11/20/2024 12:34 AM CDT) WBC 3.72(L) 3.80 - 9.90 K/cumm Hgb 10.1(L) 11.9 - 15.5 g/dL [facility] Hct 28.5(L) 35.6 - 45.5 % [facility] Plt 131(L) 150 - 400 K/cumm [facility] MPV 11.7 9.1 - 12.3 fL [facility] RBC 2.61(L) 3.90 - 5.20 M/cumm [facility] MCV 109.2(H) 81.3 - 96.4 fL [facility] MCH 38.7(H) 27.1 - 33.3 pg [facility] MCHC 35.4 32.3 - 35.7 g/dL [facility] RDW CV 14.6 11.1 - 14.9 % [facility] RDW SD 58.3(H) 35.7 - 48.1 fL [facility] NRBC abs 0.00 0.00 - 0.01 K/cumm [facility] Blood 11/20/2024 12:3 4 AM CDT 11/20/2024 1:05 AM CDT Lovely Gómez MD LAB BLOOD ORDERABLES Final Resul t Performing Organization Address City/[facility]/ZIP Co de Phone Number [facility] [place] [address] * aPTT (11/20/2024 12:34 AM CDT) aPTT 34 26 - 38 sec Comment: Interpretive Data Heparin therapeutic range: 66.0 - 100.0 seconds. Range based on correlation with therapeutic heparin activity range of 0.3 - 0.7 Units/mL. Current interpretive data was last revised on 2022. Blood 11/20/2024 12:3 4 AM CDT 11/20/2024 1:00 AM CDT us Angie Dee MD LAB BLOOD ORDERABLES Final Result Performing Organization Address City/[facility]/ZIP Co de Phone Number [facility] [place] [employer] [place] [address] * Protime-INR (11/20/2024 12:34 AM CDT) PT 12.7 10.2 - 13.5 sec INR 1.13 0.90 - 1.20 [facility] Comment: Interpretive data Oral anticoagulant therapeutic ranges: Venous thromboembolism prophylaxis or treatment: 2.0-3.0 CARDIOLOGY Standard range: 2.0-3.0 High-intensity range: 2.5-3.5 Refer to indication-specific guidelines for appropriate target ranges for prosthetic heart valve replacement. Current interpretive data was last revised on 2019. Blood 11/20/2024 12:3 4 AM CDT 11/20/2024 1:00 AM CDT us Lovely Gómez MD LAB BLOOD ORDERABLES Final Resul t [facility] Department [place] [address] * (ABNORMAL) Comprehensive metabolic panel (11/20/2024 12:34 AM CDT) Sodium 142 135 - 145 mmol/L Potassium, pl 3.7 3.3 - 4.9 mmol/L [facility] Chloride 108 97 - 110 mmol/L [facility] CO2 23 22 - 32 mmol/L [facility] Anion gap 11 2 - 15 mmol/L [facility] BUN 15 6 - 25 mg/dL [facility] Creatinine 1.31(H) 0.60 - 1.10 mg/dL [facility] Glucose 97 70 - 199 mg/dL [facility] Comment: Interpretive Data Fasting glucose >/= 126 [...] Calcium 8.8 8.5 - 10.3 mg/dL [facility] Bilirubin, total 16.3(H) 0.1 - 1.2 mg/dL [facility] Protein, pl 5.8(L) 6.5 - 8.5 g/dL [facility] Comment:Icteric; result may be falsely decreased Albumin 2.8(L) 3.5 - 5.0 g/dL [facility] Alk phos 360(H) 40 - 130 Units/L [facility] ALT 17 7 - 45 Units/L [facility] AST 22 10 - 45 Units/L [facility] Blood 11/20/2024 12:3 4 AM CDT 11/20/2024 1:05 AM CDT Lovely Gómez MD LAB BLOOD ORDERABLES Final Resul t Performing Organization Address City/[facility]/ZIP Co de Phone Number [facility] Department [place] [address] * Check Sample (11/19/2024 9:10 AM CDT) ABO Rh O Positive [facility] OTHER 11/19/2024 9:10 AM CDT 11/19/2024 9:58 AM CDT Angie Dee MD LAB BLOOD ORDERABLES Final Result Performing Organization Address [facility] Co de Phone Number [facility] [place] [employer] [place] [address] [facility] * Tacrolimus level trough (11/19/2024 9:10 AM CDT) Tacrolimus trough 4.9 ng/mL Comment: Interpretive Data Testing performed by liquid chromatography-tandem mass spectrometry. Therapeutic concentrations vary depending on type of transplanted organ and time elapsed since transplant. Typical trough concentrations range from 5-15 ng/mL. This test was developed and its performance characteristics determined by the [facility] consistent with CLIA requirements. This test has not been cleared or approved by the US Food and Drug administration. Current interpretive data last reviewed 2019. Blood 11/19/2024 9:10 AM CDT 11/19/2024 9:43 AM CDT Narrative [facility] - 11/19/2024 1:19 PM CDT TO BE DRAWN 1 HOUR PRIOR TO DOSE OF TACROLIMUS Lovely Gómez MD LAB BLOOD ORDERABLES Final Resul t Performing Organization Address [facility] de Phone Number [facility] [place] [address] * (ABNORMAL) eGFR (11/18/2024 9:53 PM CDT) eGFR 43(L) >=60 mL/min/1. 73 m2 Comment: Interpretive Data [...] interpretive data was last reviewed 2021. Blood 11/18/2024 9:53 PM CDT 11/18/2024 11:37 PM CDT us Lovely Góemz MD LAB BLOOD ORDERABLES Final Resul t Performing Organization Address City/[facility] Co de Phone Number [facility] Department [place] [employer] [place] [address] * (ABNORMAL) Differential, auto (11/18/2024 9:53 PM CDT) Pathologist [facility] Neutrophil abs 2.58 1.50 - 6.50 K/cumm Imm gran abs 0.06 0.00 - 0.10 K/cumm [facility] Lymphocyte abs 0.72(L) 0.80 - 3.30 K/cumm [facility] Monocyte abs 0.23 0.20 - 0.80 K/cumm [facility] Eosinophil abs 0.15 0.00 - 0.50 K/cumm [facility] Basophil abs 0.01 0.00 - 0.10 K/cumm [facility] Neutrophil pct 68.8 % [facility] Comment: Interpretive Data Percent cell count reference ranges are not reported, since discordance with absolute values may lead to misinterpretation of CBC data. Current Interpretive Data was last revised on 2017. Imm gran pct 1.6 % [facility] Comment: Interpretive Data Percent cell count reference ranges are not reported, since discordance with absolute values may lead to misinterpretation of CBC data. Current Interpretive Data was last revised on 2017. Lymphocyte pct 19.2 % [facility] Comment: Interpretive Data Percent cell count reference ranges are not reported, since discordance with absolute values may lead to misinterpretation of CBC data. Current Interpretive Data was last revised on 2017. Monocyte pct 6.1 % [facility] Comment: Interpretive Data Percent cell count reference ranges are not reported, since discordance with absolute values may lead to misinterpretation of CBC data. Current Interpretive Data was last revised on 2017. Eosinophil pct 4.0 % [facility] Comment: Interpretive Data Percent cell count reference ranges are not reported, since discordance with absolute values may lead to misinterpretation of CBC data. Current Interpretive Data was last revised on 2017. Basophil pct 0.3 % [facility] Comment: Interpretive Data Percent cell count reference ranges are not reported, since discordance with absolute values may lead to misinterpretation of CBC data. Current Interpretive Data was last revised on 2017. Blood 11/18/2024 9:53 PM CDT 11/19/2024 12:15 AM CDT Lovely Gómez MD LAB BLOOD ORDERABLES Final Resul t Performing Organization Address [facility] Co de Phone Number [facility] Department [place] [address] * (ABNORMAL) CBC with auto differential (11/18/2024 9:53 PM CDT) Pathologist [facility] WBC 3.75(L) 3.80 - 9.90 K/cumm Hgb 10.4(L) 11.9 - 15.5 g/dL [facility] Hct 30.6(L) 35.6 - 45.5 % [facility] Plt 138(L) 150 - 400 K/cumm [facility] MPV 12.1 9.1 - 12.3 fL [facility] RBC 2.74(L) 3.90 - 5.20 M/cumm [facility] MCV 111.7(H) 81.3 - 96.4 fL [facility] MCH 38.0(H) 27.1 - 33.3 pg [facility] MCHC 34.0 32.3 - 35.7 g/dL [facility] RDW CV 14.4 11.1 - 14.9 % [facility] RDW SD 58.6(H) 35.7 - 48.1 fL [facility] NRBC abs 0.00 0.00 - 0.01 K/cumm [facility] Blood 11/18/2024 9:53 PM CDT 11/19/2024 12:15 AM CDT Lovely Gómez MD LAB BLOOD ORDERABLES Final Resul t Performing Organization Address [facility]/ZIP Co de Phone Number [facility] Department [place] [address] * aPTT (11/18/2024 9:53 PM CDT) aPTT 30 26 - 38 sec Comment: Interpretive Data Heparin therapeutic range: 66.0 - 100.0 seconds. Range based on correlation with therapeutic heparin activity range of 0.3 - 0.7 Units/mL. Current interpretive data was last revised on 2022. Blood 11/18/2024 9:53 PM CDT 11/18/2024 11:37 PM CDT Angie Dee MD LAB BLOOD ORDERABLES Final Result Performing Organization Address [facility] de Phone Number [facility] [employer] [place] [address] * Protime-INR (11/18/2024 9:53 PM CDT) PT 12.3 10.2 - 13.5 sec INR 1.09 0.90 - 1.20 [facility] Comment: Interpretive data Oral anticoagulant therapeutic ranges: Venous thromboembolism prophylaxis or treatment: 2.0-3.0 CARDIOLOGY Standard range: 2.0-3.0 High-intensity range: 2.5-3.5 Refer to indication-specific guidelines for appropriate target ranges for prosthetic heart valve replacement. Current interpretive data was last revised on 2019. Blood 11/18/2024 9:53 PM CDT 11/18/2024 11:37 PM CDT Lovely Gómez MD LAB BLOOD ORDERABLES Final Resul t Performing Organization Address [facility] de Phone Number [facility] [employer] [place] [address] * Type and screen (11/18/2024 9:53 PM CDT) ABO Rh O Positive Love, indirect Negative [facility] Blood 11/18/2024 9:53 PM CDT 11/18/2024 11:39 PM CDT Narrative [facility] - 11/19/2024 12:43 AM CDT Has the patient had Daratumumab or Isatuximab in the past 6 months?->Unknown Angie Dee MD LAB BLOOD BANK TEST O RDERABLES Final Result [facility] [place] [address] * (ABNORMAL) Comprehensive metabolic panel (11/18/2024 9:53 PM CDT) Sodium 142 135 - 145 mmol/L Potassium, pl 3.9 3.3 - 4.9 mmol/L [facility] Chloride 111(H) 97 - 110 mmol/L [facility] CO2 21(L) 22 - 32 mmol/L [facility] Anion gap 10 2 - 15 mmol/L [facility] BUN 17 6 - 25 mg/dL [facility] Creatinine 1.55(H) 0.60 - 1.10 mg/dL [facility] Glucose 98 70 - 199 mg/dL [facility] Comment: Interpretive Data Fasting glucose >/= 126 [...] Calcium 8.7 8.5 - 10.3 mg/dL [facility] Bilirubin, total 13.1(H) 0.1 - 1.2 mg/dL [facility] Protein, pl 5.8(L) 6.5 - 8.5 g/dL [facility] Comment:Icteric; result may be falsely decreased Albumin 2.5(L) 3.5 - 5.0 g/dL [facility] Alk phos 364(H) 40 - 130 Units/L [facility] ALT 17 7 - 45 Units/L [facility] AST 27 10 - 45 Units/L [facility] Blood 11/18/2024 9:53 PM CDT 11/18/2024 11:37 PM CDT Lovely Gómez MD LAB BLOOD ORDERABLES Final Resul t Performing Organization Address City/[facility] Co de Phone Number [facility] Department [place] [address] * Tacrolimus level trough (11/18/2024 9:34 AM CDT) Tacrolimus trough 4.9 ng/mL Comment: Interpretive Data Testing performed by liquid chromatography-tandem mass spectrometry. Therapeutic concentrations vary depending on type of transplanted organ and time elapsed since transplant. Typical trough concentrations range from 5-15 ng/mL. This test was developed and its performance characteristics determined by the [facility] consistent with CLIA requirements. This test has not been cleared or approved by the [place] Food and Drug administration. Current interpretive data last reviewed 2019. Blood 11/18/2024 9:34 AM CDT 11/18/2024 9:51 AM CDT Narrative [facility] - 11/18/2024 1:45 PM CDT TO BE DRAWN 1 HOUR PRIOR TO DOSE OF TACROLIMUS Lovely Gómez MD LAB BLOOD ORDERABLES Final Resul t Performing Organization Address [facility] de Phone Number [facility] [place] [address] * (ABNORMAL) eGFR (11/18/2024 12:06 AM CDT) eGFR 42(L) >=60 mL/min/1. 73 m2 Comment: Interpretive Data [...] interpretive data was last reviewed 2021. Blood 11/18/2024 12:0 6 AM CDT 11/18/2024 12:26 AM CDT us Lovely Gómez MD LAB BLOOD ORDERABLES Final Resul t [facility] [place] [address] * (ABNORMAL) Differential, auto (11/18/2024 12:06 AM CDT) Neutrophil abs 2.51 1.50 - 6.50 K/cumm Imm gran abs 0.03 0.00 - 0.10 K/cumm [facility] Lymphocyte abs 0.52(L) 0.80 - 3.30 K/cumm [facility] Monocyte abs 0.30 0.20 - 0.80 K/cumm [facility] Eosinophil abs 0.11 0.00 - 0.50 K/cumm [facility] Basophil abs 0.01 0.00 - 0.10 K/cumm [facility] Neutrophil pct 72.1 % [facility] Comment: Interpretive Data Percent cell count reference ranges are not reported, since discordance with absolute values may lead to misinterpretation of CBC data. Current Interpretive Data was last revised on 2017. Imm gran pct 0.9 % [facility] Comment: Interpretive Data Percent cell count reference ranges are not reported, since discordance with absolute values may lead to misinterpretation of CBC data. Current Interpretive Data was last revised on 2017. Lymphocyte pct 14.9 % [facility] Comment: Interpretive Data Percent cell count reference ranges are not reported, since discordance with absolute values may lead to misinterpretation of CBC data. Current Interpretive Data was last revised on 2017. Monocyte pct 8.6 % [facility] Comment: Interpretive Data Percent cell count reference ranges are not reported, since discordance with absolute values may lead to misinterpretation of CBC data. Current Interpretive Data was last revised on 2017. Eosinophil pct 3.2 % [facility] Comment: Interpretive Data Percent cell count reference ranges are not reported, since discordance with absolute values may lead to misinterpretation of CBC data. Current Interpretive Data was last revised on 2017. Basophil pct 0.3 % [facility] Comment: Interpretive Data Percent cell count reference ranges are not reported, since discordance with absolute values may lead to misinterpretation of CBC data. Current Interpretive Data was last revised on 2017. Blood 11/18/2024 12:0 6 AM CDT 11/18/2024 12:26 AM CDT us Lovely Gómez MD LAB BLOOD ORDERABLES Final Resul t [facility] [place] [address] * (ABNORMAL) CBC with auto differential (11/18/2024 12:06 AM CDT) WBC 3.48(L) 3.80 - 9.90 K/cumm Hgb 10.1(L) 11.9 - 15.5 g/dL [facility] Hct 28.3(L) 35.6 - 45.5 % [facility] Plt 131(L) 150 - 400 K/cumm [facility] MPV 11.7 9.1 - 12.3 fL [facility] RBC 2.60(L) 3.90 - 5.20 M/cumm [facility] MCV 108.8(H) 81.3 - 96.4 fL [facility] MCH 38.8(H) 27.1 - 33.3 pg [facility] MCHC 35.7 32.3 - 35.7 g/dL [facility] RDW CV 13.9 11.1 - 14.9 % [facility] RDW SD 55.6(H) 35.7 - 48.1 fL [facility] NRBC abs 0.00 0.00 - 0.01 K/cumm [facility] Blood 11/18/2024 12:0 6 AM CDT 11/18/2024 12:26 AM CDT Lovely Gómez MD LAB BLOOD ORDERABLES Final Resul t Performing Organization Address [facility] de Phone Number [facility] [employer] [place] [address] * Protime-INR (11/18/2024 12:06 AM CDT) PT 13.0 10.2 - 13.5 sec INR 1.15 0.90 - 1.20 [facility] Comment: Interpretive data Oral anticoagulant therapeutic ranges: Venous thromboembolism prophylaxis or treatment: 2.0-3.0 CARDIOLOGY Standard range: 2.0-3.0 High-intensity range: 2.5-3.5 Refer to indication-specific guidelines for appropriate target ranges for prosthetic heart valve replacement. Current interpretive data was last revised on 2019. Blood 11/18/2024 12:0 6 AM CDT 11/18/2024 12:24 AM CDT Lovely Gómez MD LAB BLOOD ORDERABLES Final Resul t Performing Organization Address [facility] de Phone Number [facility] [place] [employer] [place] [address] * (ABNORMAL) Comprehensive metabolic panel (11/18/2024 12:06 AM CDT) Sodium 140 135 - 145 mmol/L Potassium, pl 3.5 3.3 - 4.9 mmol/L [facility] Chloride 107 97 - 110 mmol/L [facility] CO2 23 22 - 32 mmol/L [facility] Anion gap 10 2 - 15 mmol/L [facility] BUN 17 6 - 25 mg/dL [facility] Creatinine 1.58(H) 0.60 - 1.10 mg/dL [facility] Glucose 104 70 - 199 mg/dL [facility] Comment: Interpretive Data Fasting glucose >/= 126 [...] 2022. Calcium 8.6 8.5 - 10.3 mg/dL [facility] Bilirubin, total 11.0(H) 0.1 - 1.2 mg/dL [facility] Protein, pl 5.6(L) 6.5 - 8.5 g/dL [facility] Albumin 2.5(L) 3.5 - 5.0 g/dL [facility] Alk phos 344(H) 40 - 130 Units/L [facility] ALT 20 7 - 45 Units/L [facility] AST 24 10 - 45 Units/L [facility] Blood 11/18/2024 12:0 6 AM CDT 11/18/2024 12:26 AM CDT us Lovely Gómez MD LAB BLOOD ORDERABLES Final Resul t Performing Organization Address City/State/[facility] Co de Phone Number [facility] Department [place] [address] * MRI Abdomen MRCP W WO Contrast Incl 3D (11/17/2024 11:34 AM CDT) Anatomical Region Laterality Modality Body N/A Magnetic Resonan ce 11/17/2024 12:1 5 PM CDT Impressions 11/17/2024 12:15 PM CDT 1. Segmental atrophy of the left lateral section with intrahepatic ductal dilation and a diminutive left portal vein. 2. 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 3. Linear filling defect within the suprahepatic inferior vena cava extending towards the right atrium. This could potentially be further evaluated with echocardiography. 4. 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 No ascites or other findings of definite recurrent portal hypertension. Electronically signed by: Linus Montejo M.D. Narrative 11/17/2024 12:15 PM CDT EXAMINATION: 1. MAGNETIC RESONANCE IMAGING OF THE ABDOMEN WITH AND WITHOUT CONTRAST 2. 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 TECHNIQUE: Magnetic resonance imaging of the abdomen was performed prior to and following the uneventful administration of intravenous contrast. The raw data was processed on the scanner by the technologist for 3 dimensional reconstructions of the intrahepatic ducts, extrahepatics ducts, and pancreatic duct. Protocol: Liver MRCP Contrast: Dotarem (gadoterate) 16 mL COMPARISON: 04/18/2020 FINDINGS: Liver: No steatosis or iron deposition. There is atrophy of the left lateral section. No liver surface nodularity. - Bile ducts: Mild moderate intrahepatic ductal dilation within the left lateral sectoral ducts (series 28 image 20), with associated parenchymal atrophy. No dilation of segment 4 ducts. Minimal dilation of central right intrahepatic ducts. The hepaticojejunal anastomosis is patent. - Focal liver lesions: None - Vasculature: Hepatic arterial anastomosis is patent. The main portal vein, superior mesenteric vein and splenic vein are patent. There is a large splenorenal shunt. There is thrombosis of the posterior division of the right portal vein (series 39 image 519. The right anterior division is patent. The left portal vein is diminutive but patent at least centrally. The hepatic veins and caval anastomosis are patent. There is a linear filling defect within the suprahepatic inferior vena cava on series 36 image 13 and series 44 image 34, extending towards the inferior cavoatrial junction. Gallbladder: Surgically absent Pancreas: Normal Spleen: Enlarged to approximately 14.4 cm, decreased from 15.7 cm preoperatively Adrenals: Normal Kidneys: The [place] kidneys are diminutive. The transplant kidney is imaged in a limited fashion on this exam, without hydronephrosis or abnormal parenchymal enhancement. Other Findings: No ascites. Mild body wall edema. No lymphadenopathy. Moderate cardiomegaly. The stomach and duodenum are normal. Procedure Note Linus Montejo MD - 11/17/2024 EXAMINATION: 1. MAGNETIC RESONANCE IMAGING OF THE ABDOMEN WITH AND WITHOUT CONTRAST 2. 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 TECHNIQUE: Magnetic resonance imaging of the abdomen was performed prior to and following the uneventful administration of intravenous contrast. The raw data was processed on the scanner by the technologist for 3 dimensional reconstructions of the intrahepatic ducts, extrahepatics ducts, and pancreatic duct. Protocol: Liver MRCP Contrast: Dotarem (gadoterate) 16 mL COMPARISON: 04/18/2020 FINDINGS: Liver: No steatosis or iron deposition. There is atrophy of the left lateral section. No liver surface nodularity. - Bile ducts: Mild moderate intrahepatic ductal dilation within the left lateral sectoral ducts (series 28 image 20), with associated parenchymal atrophy. No dilation of segment 4 ducts. Minimal dilation of central right intrahepatic ducts. The hepaticojejunal anastomosis is patent. - Focal liver lesions: None - Vasculature: Hepatic arterial anastomosis is patent. The main portal vein, superior mesenteric vein and splenic vein are patent. There is a large splenorenal shunt. There is thrombosis of the posterior division of the right portal vein (series 39 image 519. The right anterior division is patent. The left portal vein is diminutive but patent at least centrally. The hepatic veins and caval anastomosis are patent. There is a linear filling defect within the suprahepatic inferior vena cava on series 36 image 13 and series 44 image 34, extending towards the inferior cavoatrial junction. Gallbladder: Surgically absent Pancreas: Normal Spleen: Enlarged to approximately 14.4 cm, decreased from 15.7 cm preoperatively Adrenals: Normal Kidneys: The [place] kidneys are diminutive. The transplant kidney is imaged in a limited fashion on this exam, without hydronephrosis or abnormal parenchymal enhancement. Other Findings: No ascites. Mild body wall edema. No lymphadenopathy. Moderate cardiomegaly. The stomach and duodenum are normal. IMPRESSION: 1. Segmental atrophy of the left lateral section with intrahepatic ductal dilation and a diminutive left portal vein. 2. 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 3. Linear filling defect within the suprahepatic inferior vena cava extending towards the right atrium. This could potentially be further evaluated with echocardiography. 4. 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 No ascites or other findings of definite recurrent portal hypertension. Electronically signed by: Linus Montejo M.D. us Lovely Gómez MD IMG MRI PROCEDURES Final Result * Tacrolimus level trough (11/17/2024 6:30 AM CDT) Pathologist [facility] Tacrolimus trough 4.3 ng/mL Comment: Interpretive Data Testing performed by liquid chromatography-tandem mass spectrometry. Therapeutic concentrations vary depending on type of transplanted organ and time elapsed since transplant. Typical trough concentrations range from 5-15 ng/mL. This test was developed and its performance characteristics determined by the [facility] consistent with CLIA requirements. This test has not been cleared or approved by the [place] Food and Drug administration. Current interpretive data last reviewed 2019. Blood 11/17/2024 6:30 AM CDT 11/17/2024 5:23 AM CDT Narrative [facility] - 11/17/2024 8:26 AM CDT TO BE DRAWN 1 HOUR PRIOR TO DOSE OF TACROLIMUS Lovely Gómez MD LAB BLOOD ORDERABLES Final Resul t [facility] Department [place] [address] * Cytomegalovirus (CMV) DNA PCR, quantitative Blood (11/17/2024 4:02 AM CDT) Pathologist [facility] CMV DNA Not Detected [facility] Comment: Interpretive Data: The quantifiable range of this assay is 34 IUnits/mL to 10,000,000 IUnits/mL (1.53 log IUnits/mL to 7.0 log IUnits/mL). Testing was performed by the JOHNNY 6800 CMV Test ([employer]isa [employer]: [employer] Testing performed at [facility]. Current interpretive data was last revised on 2020. Blood 11/17/2024 4:02 AM CDT 11/17/2024 6:00 AM CDT Lovely Gómez MD LAB MICROBIOLOGY - GENERAL ORDER KAREN Final Result Performing Organization Address City/[facility]/ZIP Co de Phone Number [facility] Department [place] [address] [facility] * (ABNORMAL) eGFR (11/17/2024 4:02 AM CDT) Pathologist [facility] eGFR 40(L) >=60 mL/min/1. 73 m2 Comment: Interpretive Data [...] interpretive data was last reviewed 2021. Blood 11/17/2024 4:02 AM CDT 11/17/2024 5:23 AM CDT Lovely Gómez MD LAB BLOOD ORDERABLES Final Resul t [facility] Department [place] [address] * (ABNORMAL) Differential, auto (11/17/2024 4:02 AM CDT) Pathologist [facility] Neutrophil abs 1.96 1.50 - 6.50 K/cumm Imm gran abs 0.04 0.00 - 0.10 K/cumm [facility] Lymphocyte abs 0.47(L) 0.80 - 3.30 K/cumm [facility] Monocyte abs 0.32 0.20 - 0.80 K/cumm [facility] Eosinophil abs 0.10 0.00 - 0.50 K/cumm [facility] Basophil abs 0.01 0.00 - 0.10 K/cumm [facility] Neutrophil pct 67.7 % [facility] Comment: Interpretive Data Percent cell count reference ranges are not reported, since discordance with absolute values may lead to misinterpretation of CBC data. Current Interpretive Data was last revised on 2017. Imm gran pct 1.4 % [facility] Comment: Interpretive Data Percent cell count reference ranges are not reported, since discordance with absolute values may lead to misinterpretation of CBC data. Current Interpretive Data was last revised on 2017. Lymphocyte pct 16.2 % [facility] Comment: Interpretive Data Percent cell count reference ranges are not reported, since discordance with absolute values may lead to misinterpretation of CBC data. Current Interpretive Data was last revised on 2017. Monocyte pct 11.0 % [facility] Comment: Interpretive Data Percent cell count reference ranges are not reported, since discordance with absolute values may lead to misinterpretation of CBC data. Current Interpretive Data was last revised on 2017. Eosinophil pct 3.4 % [facility] Comment: Interpretive Data Percent cell count reference ranges are not reported, since discordance with absolute values may lead to misinterpretation of CBC data. Current Interpretive Data was last revised on 2017. Basophil pct 0.3 % [facility] Comment: Interpretive Data Percent cell count reference ranges are not reported, since discordance with absolute values may lead to misinterpretation of CBC data. Current Interpretive Data was last revised on 2017. Blood 11/17/2024 4:02 AM CDT 11/17/2024 5:24 AM CDT us Lovely Gómez MD LAB BLOOD ORDERABLES Final Resul t [facility] Department [place] [address] * Tacrolimus level trough (11/17/2024 4:02 AM CDT) [facility] Tacrolimus trough 4.2 ng/mL Comment: Interpretive Data Testing performed by liquid chromatography-tandem mass spectrometry. Therapeutic concentrations vary depending on type of transplanted organ and time elapsed since transplant. Typical trough concentrations range from 5-15 ng/mL. This test was developed and its performance characteristics determined by the [facility] consistent with CLIA requirements. This test has not been cleared or approved by the US Food and Drug administration. Current interpretive data last reviewed 2019. Blood 11/17/2024 4:02 AM CDT 11/17/2024 5:24 AM CDT us Lovely Gómez MD LAB BLOOD ORDERABLES Final Resul t [facility] Department [place] [address] * (ABNORMAL) CBC with auto differential (11/17/2024 4:02 AM CDT) [facility] WBC 2.90(L) 3.80 - 9.90 K/cumm Hgb 9.8(L) 11.9 - 15.5 g/dL [facility] Hct 27.5(L) 35.6 - 45.5 % [facility] Plt 113(L) 150 - 400 K/cumm [facility] MPV 11.8 9.1 - 12.3 fL [facility] RBC 2.49(L) 3.90 - 5.20 M/cumm [facility] MCV 110.4(H) 81.3 - 96.4 fL [facility] MCH 39.4(H) 27.1 - 33.3 pg [facility] MCHC 35.6 32.3 - 35.7 g/dL [facility] RDW CV 13.8 11.1 - 14.9 % [facility] RDW SD 53.8(H) 35.7 - 48.1 fL [facility] NRBC abs 0.00 0.00 - 0.01 K/cumm [facility] Blood 11/17/2024 4:02 AM CDT 11/17/2024 5:24 AM CDT Lovely Gómez MD LAB BLOOD ORDERABLES Final Resul t Performing Organization Address City/[facility]/ZIP Co de Phone Number [facility] Department [place] [address] * Blood culture Blood (11/17/2024 4:02 AM CDT) Report Final Report: No growth Blood 11/17/2024 4:02 AM CDT 11/17/2024 5:34 AM CDT Narrative [facility] - 11/21/2024 7:01 AM CDT From a different site than #1. [...] performance characteristics have been verified by the [facility]. For questions about this culture, contact the Microbiology Laboratory at [phone]. Interpretive data was last revised on 24. Radu Sierra MD LAB MICROBIOLOGY - GEN ERAL ORDERABLES Final Result [facility] [employer] [place] [address] * aPTT (11/17/2024 4:02 AM CDT) aPTT 30 26 - 38 sec Comment: Interpretive Data Heparin therapeutic range: 66.0 - 100.0 seconds. Range based on correlation with therapeutic heparin activity range of 0.3 - 0.7 Units/mL. Current interpretive data was last revised on 2022. Blood 11/17/2024 4:02 AM CDT 11/17/2024 5:41 AM CDT Lovely Gómez MD LAB BLOOD ORDERABLES Final Resul t Performing Organization Address [facility] [place] [address] * Protime-INR (11/17/2024 4:02 AM CDT) PT 12.8 10.2 - 13.5 sec INR 1.14 0.90 - 1.20 [facility] Comment: Interpretive data Oral anticoagulant therapeutic ranges: Venous thromboembolism prophylaxis or treatment: 2.0-3.0 CARDIOLOGY Standard range: 2.0-3.0 High-intensity range: 2.5-3.5 Refer to indication-specific guidelines for appropriate target ranges for prosthetic heart valve replacement. Current interpretive data was last revised on 2019. Blood 11/17/2024 4:02 AM CDT 11/17/2024 5:41 AM CDT Lovely Gómez MD LAB BLOOD ORDERABLES Final Resul t Performing Organization Address [facility] [place] [address] * (ABNORMAL) Hepatic function panel (11/17/2024 4:02 AM CDT) Bilirubin, total 8.8(H) 0.1 - 1.2 mg/dL Bilirubin, direct 6.6(H) 0.1 - 0.3 mg/dL [facility] Protein, pl 5.6(L) 6.5 - 8.5 g/dL [facility] Albumin 2.6(L) 3.5 - 5.0 g/dL [facility] Alk phos 333(H) 40 - 130 Units/L [facility] ALT 24 7 - 45 Units/L [facility] AST 23 10 - 45 Units/L [facility] Blood 11/17/2024 4:02 AM CDT 11/17/2024 5:23 AM CDT us Lovely Gómez MD LAB BLOOD ORDERABLES Final Resul t [facility] Department [place] [address] * (ABNORMAL) Basic metabolic panel (11/17/2024 4:02 AM CDT) [facility] Sodium 142 135 - 145 mmol/L Potassium, pl 3.8 3.3 - 4.9 mmol/L [facility] Chloride 111(H) 97 - 110 mmol/L [facility] CO2 22 22 - 32 mmol/L [facility] Anion gap 9 2 - 15 mmol/L [facility] BUN 16 6 - 25 mg/dL [facility] Creatinine 1.62(H) 0.60 - 1.10 mg/dL [facility] Glucose 107 70 - 199 mg/dL [facility] Comment: Interpretive Data Fasting glucose >/= 126 [...] 2022. Calcium 8.6 8.5 - 10.3 mg/dL [facility] Blood 11/17/2024 4:02 AM CDT 11/17/2024 5:23 AM CDT Lovely Gómez MD LAB BLOOD ORDERABLES Final Resul t [facility] Department [place] [address] * XR Chest 1 View (11/16/2024 4:55 PM CDT) Anatomical Region Laterality Modality Body, Chest N/A Computed Radiogr aphy 11/17/2024 5:44 AM CDT Impressions 11/17/2024 5:44 AM CDT Comparison is made to prior from 09/01/2024. The heart size is at the upper limits of normal. The lungs are clear. No evidence of pneumonia. There is no pleural effusion or pneumothorax. Electronically signed by: Radu Martinez M.D. Narrative 11/17/2024 5:44 AM CDT EXAMINATION: 1 view chest radiograph Procedure Note Radu Martinez MD - 11/17/2024 EXAMINATION: 1 view chest radiograph IMPRESSION: Comparison is made to prior from 09/01/2024. The heart size is at the upper limits of normal. The lungs are clear. No evidence of pneumonia. There is no pleural effusion or pneumothorax. Electronically signed by: Radu Martinez M.D. Lovely Gómez MD IMG XR PROCEDURES Final Result * (ABNORMAL) Urinalysis reflex to microscopic and culture Urine, clean voided (11/16/2024 4:39 PM CDT) Color, ur Yellow Yellow Clarity, ur Cloudy(A) Clear [facility] Specific gravity, ur 1.010 1.003 - 1.030 [facility] pH, urine 6.0 [facility] Comment: Interpretive Data U rine pH is affected by diet, medications, systemic acid-base disturbances, and renal tubular function. pH may affect urinary stone formation. For example, urine pH below 6.0 may help reduce the tendency for calcium phosphate stones and pH greater than 6.0 may reduce the tendency for uric acid stone formation. Source: [facility] Current Interpretive Data was last revised on 2017 Protein, ur ql Negative Negative [facility] Glucose, ur ql Negative Negative [facility] Ketones, ur Negative Negative [facility] Bilirubin, ur 1+(A) Negative [facility] Blood, ur Negative Negative [facility] Urobilinogen, ur <2.0 <2.0 mg/dL [facility] Nitrite, ur Negative Negative [facility] Leukocyte esterase, ur Negative Negative [facility] UA reflex comment Reflex conditions for microscopic UA and culture not met. [facility] Urine, clean voided 11/16/2024 4:39 PM CDT 11/16/2024 4:46 PM CDT Lovely Gómez MD LAB MICROBIOLOGY - GENERAL ORDER KAREN Final Result [facility] Department [place] [address] * Blood culture Blood (11/16/2024 3:28 PM CDT) Report Final Report: No growth Blood 11/16/2024 3:28 PM CDT 11/16/2024 3:53 PM CDT [facility] - 11/20/2024 4:00 PM CDT Collection->Peripheral 1. Blood cultures [...] performance characteristics have been verified by the [facility]biology [facility]. For questions about this culture, contact the Microbiology Laboratory at [phone]. Interpretive data was last revised on 24. Radu Sierra MD LAB MICROBIOLOGY - GEN ERAL ORDERABLES Final Result Performing Organization Address City/[facility]/ZIP Co de Phone Number [facility] Department [place] [address] * Lactate (11/16/2024 1:46 PM CDT) Lactate 0.7 0.7 - 2.0 mmol/L Blood 11/16/2024 1:46 PM CDT 11/16/2024 1:57 PM CDT Sandy Anne MD LAB BLOOD ORDERABLES Final Resul t Performing Organization Address [facility] Co de Phone Number [facility] Department [place] [address] * (ABNORMAL) eGFR (11/16/2024 1:46 PM CDT) eGFR 37(L) >=60 mL/min/1. 73 m2 Comment: Interpretive Data [...] interpretive data was last reviewed 2021. Blood 11/16/2024 1:46 PM CDT 11/16/2024 1:57 PM CDT us Sandy Anne MD LAB BLOOD ORDERABLES Final Resul t [facility] Department [place] [address] * (ABNORMAL) Differential, auto (11/16/2024 1:46 PM CDT) Neutrophil abs 2.38 1.50 - 6.50 K/cumm Imm gran abs 0.04 0.00 - 0.10 K/cumm [facility] Lymphocyte abs 0.39(L) 0.80 - 3.30 K/cumm [facility] Monocyte abs 0.30 0.20 - 0.80 K/cumm [facility] Eosinophil abs 0.12 0.00 - 0.50 K/cumm [facility] Basophil abs 0.01 0.00 - 0.10 K/cumm [facility] Neutrophil pct 73.5 % [facility] Comment: Interpretive Data Percent cell count reference ranges are not reported, since discordance with absolute values may lead to misinterpretation of CBC data. Current Interpretive Data was last revised on 2017. Imm gran pct 1.2 % [facility] Comment: Interpretive Data Percent cell count reference ranges are not reported, since discordance with absolute values may lead to misinterpretation of CBC data. Current Interpretive Data was last revised on 2017. Lymphocyte pct 12.0 % [facility] Comment: Interpretive Data Percent cell count reference ranges are not reported, since discordance with absolute values may lead to misinterpretation of CBC data. Current Interpretive Data was last revised on 2017. Monocyte pct 9.3 % [facility] Comment: Interpretive Data Percent cell count reference ranges are not reported, since discordance with absolute values may lead to misinterpretation of CBC data. Current Interpretive Data was last revised on 2017. Eosinophil pct 3.7 % [facility] Comment: Interpretive Data Percent cell count reference ranges are not reported, since discordance with absolute values may lead to misinterpretation of CBC data. Current Interpretive Data was last revised on 2017. Basophil pct 0.3 % [facility] Comment: Interpretive Data Percent cell count reference ranges are not reported, since discordance with absolute values may lead to misinterpretation of CBC data. Current Interpretive Data was last revised on 2017. Blood 11/16/2024 1:46 PM CDT 11/16/2024 1:57 PM CDT us Sandy Anne MD LAB BLOOD ORDERABLES Final Resul t [facility] Department [place] [address] * (ABNORMAL) CBC with auto differential (11/16/2024 1:46 PM CDT) WBC 3.24(L) 3.80 - 9.90 K/cumm Hgb 10.2(L) 11.9 - 15.5 g/dL [facility] Hct 29.4(L) 35.6 - 45.5 % [facility] Plt 107(L) 150 - 400 K/cumm [facility] MPV 11.7 9.1 - 12.3 fL [facility] RBC 2.62(L) 3.90 - 5.20 M/cumm [facility] MCV 112.2(H) 81.3 - 96.4 fL [facility] MCH 38.9(H) 27.1 - 33.3 pg [facility] MCHC 34.7 32.3 - 35.7 g/dL [facility] RDW CV 13.6 11.1 - 14.9 % [facility] RDW SD 55.9(H) 35.7 - 48.1 fL [facility] NRBC abs 0.00 0.00 - 0.01 K/cumm [facility] Blood 11/16/2024 1:46 PM CDT 11/16/2024 1:57 PM CDT us Sandy Anne MD LAB BLOOD ORDERABLES Final Resul t Performing Organization Address [facility] de Phone Number [facility] [employer] [place] [address] * Tacrolimus level random (11/16/2024 1:46 PM CDT) Tacrolimus random 3.6 ng/mL Comment: Interpretive Data Testing performed by liquid chromatography-tandem mass spectrometry. Therapeutic concentrations vary depending on type of transplanted organ and time elapsed since transplant. Typical trough concentrations range from 5-15 ng/mL. This test was developed and its performance characteristics determined by the [facility] consistent with CLIA requirements. This test has not been cleared or approved by the [place] Food and Drug administration. Current interpretive data last reviewed 2019. Blood 11/16/2024 1:46 PM CDT 11/16/2024 1:57 PM CDT us Sandy nAne MD LAB BLOOD ORDERABLES Final Resul t Performing Organization Address [facility] [place] [address] * (ABNORMAL) Lipase (11/16/2024 1:46 PM CDT) Lipase 9(L) 10 - 99 Units/L Blood 11/16/2024 1:46 PM CDT 11/16/2024 1:57 PM CDT us Sandy Anne MD LAB BLOOD ORDERABLES Final Resul t Performing Organization Address [facility] de Phone Number [facility] [place] [address] * Acetaminophen level (11/16/2024 1:46 PM CDT) Pathologist [facility] Acetaminophen <5 <=5 mcg/mL Comment: Interpretive Data Significant hepatic injury may occur and treatment with n-acetyl cysteine is generally recommended if the acetaminophen level exceeds: 150 mcg/mL at 4 hours after ingestion 75 mcg/mL at 8 hours after ingestion 38 mcg/mL at 12 hours after ingestion 19 mcg/mL at 16 hours after ingestion Consult toxicology or poison control ([phone]) for unknown ingestion time. Current interpretive data was last revised 2022. Blood 11/16/2024 1:46 PM CDT 11/16/2024 1:57 PM CDT Sandy Anne MD LAB BLOOD ORDERABLES Final Resul t [facility] Department [place] [address] * (ABNORMAL) Comprehensive metabolic panel (11/16/2024 1:46 PM CDT) Pathologist [facility] Sodium 137 135 - 145 mmol/L Potassium, pl 3.7 3.3 - 4.9 mmol/L [facility] Chloride 110 97 - 110 mmol/L [facility] CO2 19(L) 22 - 32 mmol/L [facility] Anion gap 8 2 - 15 mmol/L [facility] BUN 17 6 - 25 mg/dL [facility] Creatinine 1.75(H) 0.60 - 1.10 mg/dL [facility] Glucose 96 70 - 199 mg/dL [facility] Comment: Interpretive Data Fasting glucose >/= 126 [...] Calcium 8.8 8.5 - 10.3 mg/dL [facility] Bilirubin, total 7.7(H) 0.1 - 1.2 mg/dL [facility] Protein, pl 5.9(L) 6.5 - 8.5 g/dL [facility] Albumin 2.7(L) 3.5 - 5.0 g/dL [facility] Alk phos 336(H) 40 - 130 Units/L [facility] ALT 26 7 - 45 Units/L [facility] AST 28 10 - 45 Units/L [facility] Blood 11/16/2024 1:46 PM CDT 11/16/2024 1:57 PM CDT us Sandy Anne MD LAB BLOOD ORDERABLES Final Resul t [facility] Department [place] [address] * X-ray cervical spine complete 4 or 5 vw (10/29/2024 9:09 AM CDT) Anatomical Region Laterality Modality Spine N/A Computed Radiogr aphy 10/29/2024 11:3 4 AM CDT Impressions 10/29/2024 9:59 PM CDT 1. Mild C5-C7 degenerative disc disease. Dictated by: Holger Pedersen MD The radiology attending physician has personally reviewed this study, and had reviewed and/or edited this written report and agrees with it. Electronically signed by: Tameka Swanson MD Narrative 10/29/2024 9:59 PM CDT EXAMINATION: XR SPINE CERVICAL COMPLETE 4 OR 5 VW HISTORY: Cervical pain FINDINGS: 4 radiographs of the cervical spine are submitted. Comparison is made to spine radiographs dated 07/24/2024. Normal sagittal alignment of the cervical spine. No acute fracture. Mild C5-C7 degenerative disc disease. Normal neural foramina. Prior dental restorations. Procedure Note Sheila Swanson MD - 10/29/2024 EXAMINATION: XR SPINE CERVICAL COMPLETE 4 OR 5 VW HISTORY: Cervical pain FINDINGS: 4 radiographs of the cervical spine are submitted. Comparison is made to spine radiographs dated 07/24/2024. Normal sagittal alignment of the cervical spine. No acute fracture. Mild C5-C7 degenerative disc disease. Normal neural foramina. Prior dental restorations. IMPRESSION: 1. Mild C5-C7 degenerative disc disease. Dictated by: Holger Pedersen MD The radiology attending physician has personally reviewed this study, and had reviewed and/or edited this written report and agrees with it. Electronically signed by: Tameka Swanson MD us Igor Graham MD IMG XR PROCEDURES Final Result * Ambulatory Referral to [facility] (10/26/2024 9:25 AM CDT) Patient Enrollment Date 10/25/2024 [employer] Designated Quit Date Not Selected [employer] Patient Smoking Status Did not enroll [employer] us Beatriz Lee MD OUTPATIENT REFERRAL ORDERABLES Final Result [email or web address] * Hepatitis panel, acute (04/16/2020 6:35 AM TRANSPORTATION DEPARTMENT SUPERVISOR) Hep A IgM Nonreactive Nonreactive [facility] Comment: Interpretive Data: If Hep A IgM Ab is reported as Equivocal, a new sample should be drawn in two weeks for testing. Current interpretive data was last revised on 19. Hep B core IgM Nonreactive Nonreactive [facility] Comment: Interpretive Data If HepB Core IgM Ab is reported as Equivocal, a new sample should be drawn in two weeks for testing. Current interpretive data was last revised on 19. Hep C Ab Nonreactive Nonreactive [facility] Comment:Antibodies to HCV no t detected. Does NOT exclude the possibility of recent exposure to HCV. HepBsAg Nonreactive Nonreactive [facility] Blood specimen (specimen) 04/16/2020 6:35 AM TRANSPORTATION DEPARTMENT SUPERVISOR 04/16/2020 7:34 AM TRANSPORTATION DEPARTMENT SUPERVISOR us Jacob Gates MD LAB MICROBIOLOGY - GENER AL ORDERABLES Final Result [facility] Department [place] [address] from Last 3 Months or Most Recently Relevant to Health Maintenance Insurance [email or web address] OPEN ACCESS [email or web address] [facility] HEALTH PLAN CIG[employer] OPEN ACCESS [facility] Advance Directives For more information, please contact: [phone] * Full Code (Latest Code Status on File) Date Activated Date Inactivated Comments 11/16/2024 11:22 AM 11/23/2024 4:06 PM * Full Code Date Activated Date Inactivated Comments 09/01/2024 11:58 AM 09/06/2024 9:43 PM * Full Code Date Activated Date Inactivated Comments 05/29/2024 10:30 PM 06/13/2024 7:10 PM * Full Code Date Activated Date Inactivated Comments 04/16/2020 1:16 AM 04/23/2020 6:51 PM * Full Code Date Activated Date Inactivated Comments 08/14/2019 3:14 PM 08/14/2019 9:26 PM Care Teams Registered Nurse Bone Marrow Transplant Relationship Specialty Start Date End Date Lyly Fiore NP [address] [place] [address] PCP - General Nurse Practitioner 05/29/24 Beatriz Lee MD [address] [place] [address] Referring Physician Gastroenterology 07/25/19 Taylor Kitchen, library supervisorWarp Dyeing Vat Tender 05/29/24
--- OUTSIDE RECORDS SUMMARY | 2025-01-07 14:08 | XMS_ITS | Encounter Summary ---
Author Organization [employer] Care Team Providers Care Atlassian Administrator Name Role Phone Hermes Ramirez MD Primary Care Provider + -[phone] Encounter Details Date Type Department Care Team (Latest Contact Info) Description 01/07/2025 Travel Social History Tobacco Use Types Packs/Day [...] documented as of this encounter Care Teams Atlassian Administrator Relationship Specialty Start Date End Date Hermes Ramirez MD [address] [facility] [address] [place] [address] PCP - General Family Medicine 05/09/18 documented as of this encounter
--- OUTSIDE RECORDS SUMMARY | 2025-01-07 14:08 | XMS_ITS | Encounter Summary ---
Author Organization [facility] Address [address] [place] [address] Phone Care Team Providers Care Clinical Informatics Director Name Role Phone Hermes Ramirez MD Primary Care Provider + -[phone] Reason for Visit * Reason Onset Date Comments Back Pain 04/02/2012 hip pain pregnan t Encounter Details Date Type Department Care Team (Late st Contact Info) Description 04/02/2012 Telephone Center Building Lower Level [facility] [address] [place], [place] [address] Cachorro Harry MD [address] [place], [place] [address] Back Pain (hip pain ) Social History Tobacco Use Types Packs/Day Years Used Date Smoking Tobacco: Never Assessed Comments Yes Sex and Gender Information Value Date Recorded Sex Assigned at Not on file Legal Sex Female 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 Washington/Sonal's office and have them evaluate her backpain and pelvic pain. Pt verbalized understanding and was agreeable to this plan and had no furtherquestions at this time. ah ND PASTE MIXER * Telephone Encounter - BriannaJune - 04/02/2012 10:19 AM CST Pt is about 25 weeks and having back pain and hip pain. Was put on progesterone. ND PASTE MIXER documented in this encounter Plan of Treatment Not on file documented as of this encounter Visit Diagnoses Diagnosis Short cervix affecting - Primary Cervical shortening, unspecified as to episode of care or not applicable Renal insufficiency complicating Unspecified renal disease in , unspecified as to episode of care Teratogen exposure in current Other known or suspected abnormality, not elsewhere classified, affecting management of mother, unspecified as to episode of care Liver replaced by transplant (CMS-HCC) Liver replaced by transplant Thrombocytopenia complicating (CMS-HCC) Other current maternal conditions classifiable elsewhere, complicating , childbirth, or the puerperium, unspecified as to episode of care History of cone biopsy of cervix Other postprocedural status Genital warts complicating Other maternal viral disease complicating , childbirth, or the puerperium, unspecified as to episode of care documented in this encounter Care Teams Clinical Informatics Director Relationship Specialty Start Date End Date Hermes Ramirez MD [address] [place] [address] PCP - General Family Medicine 06/05/12 documented as of this encounter
--- OUTSIDE RECORDS SUMMARY | 2025-01-07 14:08 | XMS_ITS ---
Author Organization [facility] Address [address] [place] [address] Care Team Providers Care Fish Hatchery Inspector Name Role Phone Beatriz Lee MD Unavailable +- [phone] Lyly Fiore NP Primary Care Provider Taylor Kitchen RN Unavailable Unav ailable Transplant Episode Liver Recipient [facility] ([place], [place]) - [facility] Transplanted on 05/09/2020 Marked as Active Follow-up on 07/01/2024 Reason: In Transition Process Liver CoordinatorTaylor Kitchen RN Phone: N/A Fax: N/A Email: N/A Transplanted Elsewhere: [facility] ([place], [place]) - [place] Coordinator: Phone: Fax: [place] 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
--- OUTSIDE RECORDS SUMMARY | 2025-01-07 14:08 | XMS_ITS | Encounter Summary ---
Author Organization [facility] Address [address] [place] [address] Care Team Providers Care Director Of Perioperative Services Name Role Phone Beatriz Lee MD Unavailable +- [phone] Lyly Fiore OPERATIVE SUPERVISOR Primary Care Provider Taylor Kitchen RN Unavailable Unav ailable Encounter Details Date Type Department Care Team (Late st Contact Info) Description 11/28/2024 Results Follow-Up [facility] Liver [address] [address] Mailstop [id number] [place] [address] Taylor Kitchen RN Surgical pathology Social History Tobacco Use Types Packs/Day Years Used Date Smoking Tobacco: Every Day Cigarettes Smokeless Tobacco: Never Comments:1/2 pack, some days none Alcohol Use [...] any clubs o r organizations such as muslim groups, unions, fraternal or athletic groups, or [...] any time in the past 12 m [facility], were you homeless or living in a senior living (including now)? No 09/03/2024 Social Connection and Isolation Panel Answer Date Recorded In a typical week, how many times do you talk on the phone with family, friends, or neighbors? Three times a week 11/19/2024 How often do you get togethe r with friends or relatives? Three times a week 11/19/2024 How often do you attend chur ch or religion services? Never 11/19/2024 Do you belong to any clubs o r organizations such as muslim groups, unions, fraternal or athletic groups, or school groups? No 11/19/2024 How often do you attend meet ings of the clubs or organizations you belong to? Never 11/19/2024 Are you , , di vorced, , never , or living with a partner? Never 11/19/2024 AUDIT-C Answer Date Recorded Q1: How often do you have a drink containing alcohol? Never 11/16/2024 Q2: How many drinks containi ng alcohol do you have on a typical day when you are drinking? Patient does not drink Q3: How often do you have si x or more drinks on one occasion? Never 11/16/2024 Overall Financial Resource Strain (CARDIA) Answe r Date Recorded How hard is it for you to pa y for the very basics like food, housing, medical care, and heating? Not hard at all 11/19/2024 [facility] - Occupational Stress [...] the money to buy more. Never true 11/20/19 25 Within the past 12 months, t he food you bought just didn't last and you didn't have money to get more. Never true 11/19/2024 PRAPARE - Transportation Answer Date Re [...] any time in the past 12 m [facility], were you homeless or living in a senior living (including now)? No 11/19/2024 [facility] Utilities Answer Date Recorded In the past 12 months has th e electric, gas, oil, or water company threatened to shut off services in your home? No 11/19/2024 Personal Safety Answer Date Recorded Have you ever been in or are you currently in a harmful physical or emotional relationship or is someone making you feel afraid or unsafe? 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 Author CCM Chronic Pain Care Plan Chronic Care Management Worsening( 8:28 AM CDT) Matias Arce, RN Note: Problem: [...] in this encounter Care Teams Director Of Perioperative Services Relationship Specialty Start Date End Date Lyly Fiore NP [address] [place] [address] PCP - General Nurse Practitioner 05/29/24 Beatriz Lee MD [address] [place] [address] Referring Physician Gastroenterology 07/25/19 Taylor Kitchen, oyster preparerBoiler Water Tester 05/29/24 documented as of this encounter
--- OUTSIDE RECORDS SUMMARY | 2025-01-07 14:08 | XMS_ITS | Encounter Summary ---
Author Organization [facility] Address [address] [place] [address] Phone Care Team Providers Care Paper Cup Machine Tender Name Role Phone Hermes Ramirez MD Primary Care Provider + -[phone] Reason for Visit * Reason Onset Date Comments Fmla 06/07/2012 Encounter Details Date Type Department Care Team (Late st Contact Info) Description 06/07/2012 Telephone Center Building Lower Level [facility] [address] [place], [place] [address] Cachorro Harry MD [address] [place], [place] [id number] Fmla Social History Tobacco Use Types Packs/Day Years Used Date Smoking Tobacco: Some Days Alcohol Use Standard Drinks/Week Comments No 0 (1 standard drink = 0.6 oz pur e alcohol) Comments Unknown Sex and Gender Information Value Date Recorded Sex Assigned at Not on file 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 I explained we would fill them out, just asked her to make sure they readover them and fill out any of the information they need about her we would not have or know. Pt stated they are going to go over them this evening and then bring them by our office tonight. Pt had no other questions. ah * Telephone Encounter - Nichelle Loyd RN - 06/07/2012 2:59 PM CDT Attempted to contact pt to answer questions regarding pt's husbands FMLA papers. Pt was unavailableat this time I left a message for her to return the call to our office at her convenience, to the phone number, [phone].ah * Telephone Encounter - Romy Antonio - 06/07/2012 10:41 AM CDT Pt is asking what to do with the FMLA paperwork for her . documented in this encounter Plan of Treatment [...] (CMS-HCC) Liver replaced by transplant Thrombocytopenia complicating ([facility]-HCC) Other current maternal conditions classifiable elsewhere, complicating , childbirth, or the puerperium, unspecified as to episode of care History of cone biopsy of cervix Other postprocedural status Genital warts complicating Other maternal viral disease complicating , childbirth, or the puerperium, unspecified as to episode of care documented in this encounter Care Teams Paper Cup Machine Tender Relationship Specialty Start Date End Date Hermes Ramirez MD [address] [place] [id number] PCP - General Family Medicine 06/05/12 documented as of this encounter
--- OUTSIDE RECORDS SUMMARY | 2025-01-07 14:08 | XMS_ITS | Clinical Summary ---
Author Organization [facility] Address [address] [place] [address] Phone Care Team Providers Care Kick Boxer Name Role Phone Hermes Ramirez MD Primary Care Provider [phone] [phone] Allergies Active Allergy Reactions Criticality Noted Date Comments Aspirin Anaphylaxis High 01/17/2016 counteracts immunosuppressment Azathioprine Other (see Comments) High 01/07/2025 Codeine Itching High 01/17/2016 Erythromycin Other (see Comments) High 01/17/2016 Counteracts immunosuppressants Gentamicin Other (see Comments) High 04/23/2020 Medication interaction Medication interaction Nsaids Other (see Comments) 10/13/2021 Tizanidine Other (see Comments) 01/07/2025 Possible liver issuues Ketorolac Tromethamine Other (see Comments) High 01/17/2016 [...] BEDTIME 2 Active Butalbital-APAP -Caff-Cod (Fioricet/Codei ne) 61-593-22-30 MG Capsule Take by mouth. 2 Active Butalbital-APAP -Caffeine 50-300-40 MG Capsule Take 1 Capsule by mouth every 4 hours as needed. 2 Active cefUROXime (CEFTIN) 500 MG Tablet TAKE ONE TABLET TWICE DAILY UNTIL GONE 2 Active metoprolol tartrate (LOPRESSOR) 25 MG Tablet Take 25 mg by mouth 2 times daily. 2 Active azathioprine (AZASAN) 100 MG Tablet Take 100 mg by mouth daily. 5 Active DULoxetine (CYMBALTA) [address] Particles Take 60 mg by mouth daily. 5 Active melatonin 3 MG Tablet Take 3 mg by mouth. Active tiZANidine (ZANAFLEX) 2 MG Tablet Take 2 mg by mouth. 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 Chronic otitis externa of left ear 04/30/2018 Migraine without aura and wi thout status migrainosus, not intractable 03/27/2018 Ingrown fingernail 02/19/2018 Retained myringotomy tube in left ear 01/17/2018 Genital condyloma, female 01/09/2018 Anemia, unspecified 05/04/2012 Liver replaced by transplant 01/04/2012 Encounters Date Type Department Care Team Description 01/07/2025 1:07 PM CDT - Present Emergency [facility] Emergency [address] [place] [address] 01/07/2025 Travel 11/03/2024 6:53 PM CDT - 11/03/2024 8:40 PM CDT Emergency [facility] Emergency Dept. Services [address] [place] [address] Andrew Ahn, DO Migraine Discharge Disposition: Discharged to home or Selfcare 11/03/2024 Travel from Last 3 Months Family History Medical History Relation Name Comments No Known Problems Father Diabetes Mother Liver Cancer Mother Relation Name Status Comments Father Mother Social History Tobacco Use Types Packs/Day Years Used Date Smoking Tobacco: Every Day Cigarettes 0.3 10 Smokeless Tobacco: Never Tobacco Cessation:Ready to Q uit: Not Asked; Counseling Given: Not Answered Alcohol Use Standard Drinks/Week Comments No 0 [...] PM CDT Sexual Orientation Not on file Last Filed [...] Mass Index 32.92 01/07/2025 1:03 PM CDT Plan of Treatment Health Maintenance [...] this topic Insurance [place] [id number] [facility] MEDICAID [place] MEDICAID [place] Care Teams Kick Boxer Relationship Specialty Start Date End Date Hermes Ramirez MD [address] [facility] [address] [place] [address] PCP - General Family Medicine 05/09/18
--- OUTSIDE RECORDS SUMMARY | 2025-01-07 14:08 | XMS_ITS | Encounter Summary ---
Author Organization [facility] Address [address] [place] [address] Phone Care Team Providers Care Rn Labor Delivery Name Role Phone Hermes Ramirez MD Primary Care Provider + [phone] Reason for Visit * Reason Onset Date Comments Depression 06/15/2012 Encounter Details Date Type Department Care Team ([facility] Contact Info) Description 06/15/2012 Telephone Center Building Lower Level [facility] [address] [place], [place] [address] Cachorro Harry MD [address], [place] [id number] Depression Social History Tobacco Use Types Packs/Day Years Used Date Smoking Tobacco: Some Days Alcohol Use Standard Drinks/Week Comments No 0 (1 standard drink = 0.6 oz pur e alcohol) Comments Unknown Sex and Gender Information Value Date Recorded Sex Assigned at Not on file 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 If she is physically exhausted, and she needs to rest tell the appropriate staff she needs to get some sleep. I went over with the pt that we want to get her evaluated as soon as possible and we can see her in our office on June 21 at 2:30, if she can make this appointment? The pt states that would be fine. I also expl ained to the pt that post depression is real and if she feels to overwhelmed by everything going on around her, the situation and the feeling that she states as just one major event after another not to hesitate to go the the ER. Pt verbalized understanding and restated that she is just struggling with the situation, and continuing to attempt to pump and not get any milk and the nurses and are making her feel so guilty. I advised her again no one should make her feel guilty. She is a mother first and foremost. And just being by her son's side is doing him wonders. If she needs to skip a feeding (a pumping) to get some sleep because she feels so sleep deprived, there is nothing wrong with telling her son's nurses she is going to sleep through a feeding. I stressed again there is nothing to feel guilty about with taking care of her body's needs. Pt verbalized understand and I restated if she feels too overwhelmed please go to the ER. Pt verbalized understanding. And was very appreciative for the concern. Re confirmed appointment for June 21 * Telephone Encounter - Esthela Lehman APRN - 06/15/2012 4:40 PM CDT Pt needs to be seen. We can see her next week or if she has a need prior to being seen; she may go to ER. She can come see us or go to primary provider if she will be at home. MZ * Telephone Encounter - Luz Vaca RN - 06/15/2012 2:31 PM CDT S: Patient is calling to report some PP issues. Patient states that she has been struggling with PPdepression. Patient states that all she does is cry. Patient states that she feels completely overwhelmed. Patient states that she has not been sleeping because she has so much anxiety, has not been home in 4 weeks and has to wake up every three hours to pump. Patient states that her baby is still in the NICU here at [facility]. Patient states that she delivered him 4 weeks ago. Patient states that she has been staying in a hotel here in [place] the last 4 weeks so that she can be close to him because she lives over 2 hours away. Patient states that she has only been home twice in the last 4 weeks.Patient states that she has an 11 year old at home and she has barely seen him in the last 4 weeks.Patient states that her has been at home with their 11 year old the last 4 weeks and will bring him to see her on the weekends. Patient states that she is very frustrated because she feels like her gets to come and go as he pleases but she is stuck here. Patient states that she is ti red of pumping because she is hardly getting any milk and she is frustrated because she feels like she is doing something wrong. Patient states that she has been doing everything that the consultants and NICU nurses have asked of her and it has not helped to increase her milk supply. Patient states that she has mentioned to the NICU nurses that she wants to stop pumping but they make her feel guilty for wanting to stop. Patient states that she thinks if she would stop pumping thather anxiety level would decrease and she would get a lot more sleep. Patient states that she does have a history of depression and that she was put on Lexapro a couple of years ago. Patient states that she took the Lexapro for about 6 months and then stopped because she did not like the way it madeher feel. Patient states that the medicine made her feel like she had no emotions and when she would have a legitimate reason to cry she wouldn't be able to. Patient states that she has also seen a counselor on and off for the last several years. Patient states that she has not seen a counselor in the last 4-5 months because of everything that has been going on with her . Patient states that seeing a counselor is helpful. Patient states that she thinks her baby will be going home in about two weeks. Patient states that as long as he will maintain his temperature outside of the isolette and will eat a full bottle he can go home. Patient states that she is also frustrated because shefeels like she cannot care for her baby the way she wants to because she has to follow the rules inNICU. Patient states that when she is in the NICU with her son he will eat an entire bottle but when she is not around and the nurses feed him he only eats a couple of ounces. Patient states that it is very frustrating because she has feels like she has no control over anything in her life. Patientstates that she has not been seen for her two week PP visit. Patient states that she delivered by C/S. Patient denies any s/s of infection or pain. Patient states that she would like something for anxiety and something to maybe help her sleep. Patient states that she would be willing to take an antidepressant as well. Patient denies any thoughts of harming herself or others. Pain: yes/no no O: 31w0d GA, Delivered 05/18/12, 4 wk PP A: Health seeking behavior P: Patient informed that it is normal for her to feel overwhelmed and stressed with everything thatis going on in her life. RN talked with patient extensively about her feelings. Patient reassured that she is not a selfish person. Patient informed that RN will talk with Tameka Lehman NP regarding aboveinformation and will give her a call back today. Patient denies any further questions or concerns. Patient is informed and agreeable * Telephone Encounter - Luz Vaca RN - 06/15/2012 2:23 PM CDT Patient hung up before RN could talk with her. RN attempted to contact patient but she does not answer. Message left for patient to return call. * Telephone Encounter - Natalya Peres - 06/15/2012 2:20 PM CDT Pt is 4wks post and feels she may be having signs of PPD. documented in this encounter Plan of Treatment [...] care documented in this encounter Care Teams Rn Labor Delivery Relationship Specialty Start Date End Date Hermes Ramirez MD [address] [address] PCP - General Family Medicine 06/05/12 documented as of this encounter
--- OUTSIDE RECORDS SUMMARY | 2025-01-07 14:08 | XMS_ITS | Encounter Summary ---
Author Organization [facility] Healthcare Address [address] [place] [address] Care Team Providers Care Industrial Staff Nurse Name Role Phone Beatriz Lee MD Unavailable +- [phone] Lyly Fiore LIME KILN WORKER Primary Care Provider Taylor Kitchen RN Unavailable Unav ailable Reason for Visit * Reason Onset Date Comments PMC Preprocedure 09/19/2024 Encounter Details Date Type Department Care Team (Late st Contact Info) Description 09/19/2024 Telephone [facility] [address] [facility] [address] [place], [place] [id number] Igor Graham MD [address] [place] [address] PMC Preprocedure Social History Tobacco Use Types Packs/Day Years Used Date Smoking Tobacco: Every Day Cigarettes Smokeless Tobacco: Never Comments:1 cigarette day Alcohol Use Standard Drinks/Week Comments Never 0 (1 standard drink = 0.6 oz pur e alcohol) rare [facility] Utilities Answer Date Recorded In the past 12 months has [employer], gas, oil, or water company threatened to [...] any time in the past 12 m [facility], were you homeless or living in a correction (including now)? No 09/03/2024 Personal Safety Answer Date Recorded Have you ever been in or are you currently in a harmful physical or emotional relationship or is someone making you feel afraid or unsafe? 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 Author CCM Chronic Pain Care Plan Chronic Care Management Worsening( 8:28 AM CDT) No Matias Abraham, ANSON Note: [...] filedocumented in this encounter Care Teams Industrial Staff Nurse Relationship Specialty Start Date End Date Lyly Fiore NP [address] [place] [address] PCP - General Nurse Practitioner 05/29/24 Beatriz Lee MD [address] [place] [address] Referring Physician Gastroenterology 07/25/19 Taylor Kitchen, public healthExpansion Joint Builder 05/29/24 documented as of this encounter
--- OUTSIDE RECORDS SUMMARY | 2025-01-07 14:08 | XMS_ITS | Encounter Summary ---
Author Organization [facility] Address [address] [place] [address] Phone Care Team Providers Care Public Works Manager Name Role Phone Hermes Ramirez MD Primary Care Provider [phone] Encounter Details Date Type Department Care Team (Late st Contact Info) Description 07/05/2012 Patient Related Communication Case Management [address] [id number] Linda Laura LCSW [address] [place] [id number] Social History Tobacco Use Types Packs/Day Years Used Date Smoking Tobacco: Some Days Alcohol Use Standard Drinks/Week Comments No 0 (1 standard drink = 0.6 oz pur e alcohol) Comments Unknown Sex and Gender Information Value Date Recorded Sex Assigned at Not on file 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 SW had to leave a message and encouraged her to call SW back. KEVIN notes that SW has given her information on PPD resources in the [facility] when she was on the NICU with her son, but can provide them again as needed. KEVIN available upon request. documented in this encounter Plan of Treatment Not on file documented as of this encounter Visit Diagnoses Not on filedocumented in this encounter Care Teams Public Works Manager Relationship Specialty Start Date End Date Hermes Ramirez MD [address] [address] PCP - General Family Medicine 06/05/12 documented as of this encounter
--- OUTSIDE RECORDS SUMMARY | 2025-01-07 14:08 | XMS_ITS | Clinical Summary ---
Author Organization [facility] Address [address] [place] [address] Phone Care Team Providers Care Blood Bank Laboratory Technician Name Role Phone Hermes Ramirez MD Primary Care Provider [phone] Allergies Active Allergy Reactions Criticality Noted Date Comments Aspirin Other; see comment 04/17/2012 Pt states she reports ASA as an allergy because of the interaction w/ Prograf Erythromycin Other; see comment 04/17/2012 Pt instructed to report as an allergy because of interaction w/ Prograf Medications tacrolimus (PROGRAF) 1 mg capsuleIndication s:liver transplant rejection Take 4 mg by mouth 2 (two) times daily - Indication: Liver Transplant Rejection Active vitamin w/ calcium-iron 27 mg-folic acid 1 mg ( PLUS CALCIUM CARBONATE) tablet Take 1 tablet by mouth every day Active LORazepam (ATIVAN) 0.5 mg tablet Take 1 tablet (0.5 mg total) by mouth every 6 hours as needed 30 tablet 0 3 Active predniSONE 2.5 mg tablet Take 1 tablet (2.5 mg total) by mouth every day Take 1 tablet by mouth every day x 7 days, then take every other day x 1 week. 11 tablet 0 3 Active norethindrone contraceptive (AGUSTIN) 0.35 mg tablet Take 1 tablet (0.35 mg total) by mouth every day 28 tablet 12 3 Active Active Problems Problem Noted Date Diagnosed Date Anemia, unspecified 05/04/2012 Short cervix affecting 03/28/2012 Overview (03/28/2012): 11 to 13 mm with funneling Renal insufficiency complicating 02/20 Overview (02/21/2012): Creatinine 1.6 MG/DL BUN 20 MG/DL Teratogen exposure in current 02/21/20 12 Liver replaced by transplant 01/04/2012 Thrombocytopenia complicating 01/04/20 12 History of cone biopsy of cervix 01/04/2012 Genital warts complicating 01/04/2012 Immunizations Immunization Administration Dates Next Due T-dap (BOOSTRIX) 05/25/2012 Social History Tobacco Use Types Packs/Day Years Used Date Smoking Tobacco: Some Days Alcohol Use Standard Drinks/Week Comments No 0 (1 standard drink = 0.6 oz pur e alcohol) Comments Unknown Sex and Gender Information Value Date Recorded Sex Assigned at Not on file 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 Gender Identity Not on file Sexual Orientation Not on file Last Filed Vital Signs Vital Sign Reading Time Taken Comments Blood Pressure 124/78 06/21/2012 2:40 PM CDT Pulse 91 06/14/2012 10:26 PM CDT Temperature 37 C (98.6 F) 06/14/2012 10:26 PM CDT Respiratory Rate 16 06/14/2012 10:26 PM CDT Oxygen Saturation 100% 06/14/2012 10:26 PM CDT Inhaled Oxygen Concentration - - Weight 73.9 kg (163 lb) 09/01/2017 3:12 PM CDT Height 157.5 cm (5' 2) 09/29/2017 10:31 AM CDT Body Mass Index 29.81 09/01/2017 3:12 PM CDT Plan of Treatment Health Maintenance Due Date Last Done Comments MMR Vaccines (1 of 1 - Standard series) 10/04/1983 COVID-19 Vaccine (#1) 10/04/1987 Depression Screening 1994 Varicella Vaccines (1 of 2 - 13+ 2-dose series) 10/04/1995 Hepatitis B Vaccines (1 of 3 - 19+ 3-dose series) 2001 Pneumococcal Vaccines (1 of 2 - PCV) 2001 Pap Smear 10/04/2003 HPV Vaccines (1 - Risk 3-dose SCDM series) 2009 Cervical Cancer Screening 2012 HPV/Co-Testing 2012 Screening for Diabetes 2017 3, 06/21/2012, 05/19/2012, Additional history exists DTaP/Tdap/Td Vaccines (2 - Td or Tdap) 05/25/2022 05/25/2012 Breast Cancer Screening 2022 Influenza Vaccine (#1) 2024 HIB Vaccines Aged Out No longer eligi ble based on patient's age to complete this topic Hepatitis A Vaccines Aged Out No long er eligible based on patient's age to complete this topic IPV Vaccines Aged Out No longer eligi ble based on patient's age to complete this topic Meningococcal B Vaccine Aged Out No l onger eligible based on patient's age to complete this topic Meningococcal Vaccine (ACWY) Aged Out No longer eligible based on patient's age to complete this topic Rotavirus Vaccines Aged Out No longer eligible based on patient's age to complete this topic Procedures Procedure Name Priority Date/Time Associated Diagnosis Comments COMPREHENSIVE METABOLIC PANEL Routine 06/21/2012 4:25 PM CDT Short cervix affecting Renal insufficiency complicating Teratogen exposure in current Liver replaced by transplant Thrombocytopenia complicating History of cone biopsy of cervix Genital warts complicating from Last 3 Months or Most Recently Relevant to Health Maintenance Results * (ABNORMAL) COMPREHENSIVE METABOLIC PANEL (06/21/2012 4:25 PM CDT) CALCIUM 9.5 8.5 - 10.1 mg/dl [facility] GLUCOSE 84 60 - 99 mg/dl [facility] BUN 25(H) 7 - 18 mg/dl [facility] CREATININE 1.29 0.60 - 1.30 mg/dl [facility] TOTAL PROTEIN 6.7 6.4 - 8.2 g/dl [facility] ALBUMIN 3.3(L) 3.4 - 5.0 g/dl [facility] BILIRUBIN, TOTAL 0.8 0.2 - 1.0 mg/dl [facility] AST 86(H) 15 - 37 U/L [facility] ALT 162(H) 12 - 78 U/L [facility] ALKALINE PHOSPHATASE 469(H) 50 - 136 U/L [facility] SODIUM 144 136 - 145 mmol/L [facility] POTASSIUM 4.3 3.5 - 5.1 mmol/L [facility] CHLORIDE 110(H) 98 - 107 mmol/L [facility] CO2 25.0 21.0 - 32.0 mmol/L [facility] Comment:[facility], [address] [place] [id number] 06/21/2012 4:25 PM CDT 06/21/2012 6:00 PM CDT Esthela Nikko Dominik PLAY LEADER HEM/CHEM/IMMUN-BLOOD Final Result [facility] [address] [place] [phone] from Last 3 Months or Most Recently Relevant to Health Maintenance Care Teams Blood Bank Laboratory Technician Relationship Specialty Start Date End Date Hermes Ramirez MD [address] [place] [id number] PCP - General Family Medicine 06/05/12
== END 2025-01-07 13:29 | disposition left against medical advice (07) ==
LOC: ANHED 13:07
PROVIDERS: Emergency Medicine
DX: G43.909 Migraine, unspecified, not intractable, without status migrainosus (principal); Z76.5 Malingerer [conscious simulation]; Z94.4 Liver transplant status; Z94.0 Kidney transplant status; R94.31 Abnormal electrocardiogram [ECG] [EKG]; R00.0 Tachycardia, unspecified
CPT/HCPCS: 36415; 80053; 80307; 81025; 82077; 85025; 85055; 93005; 99283